=== PATIENT | male | born 1960 | race Caucasian/White ===

== ENCOUNTER 2023-04-16 09:53 | Outpatient (OUT) | payer OTHER, SELFPAY ==
--- NOTE | 2023-04-16 10:54 | PM.CN ---
Consult Note: HPI Data of Consult Patient: new to practice Consult date: 04/16/23 Requesting Physician: Sarina Ramsey MD Primary Care Provider: GRISELDA KRAUSE Consult Narrative Reason for consult: Neck, left shoulder and arm pain Narrative: 62yom who presents for evaluation. Worsening neck pain that radiates into left shoulder and upper extremity. Has had extensive workup with neurosurgery, not a surgical candidate. Has had RFA at outside clinic. Continues in provider directed home exercise program >6 weeks, with minimal benefit. Uses tylenol and muscle relaxer, with some benefit. cc:: CC: Sarina Ramsey MD Review of Systems ROS Status of ROS 10 or more systems reviewed and unremarkable except as noted in history and below Meds Home Medications and Allergies Home Medications Medication Instructions Recorded Confirmed Type acetaminophen 300 mg-codeine 30 mg 1 tab PO BID PRN pain 04/16/23 04/16/23 History tablet amlodipine 5 mg tablet (Norvasc) 5 mg PO DAILY 04/16/23 04/16/23 History aspirin 81 mg tablet,delayed 81 mg PO DAILY 04/16/23 04/16/23 History release (Adult Low Dose Aspirin) baclofen 10 mg tablet 10 mg PO DAILY PRN muscle spasm 04/16/23 04/16/23 History citalopram 20 mg tablet (Celexa) 20 mg PO DAILY 04/16/23 04/16/23 History gabapentin 300 mg capsule 300 mg PO TID 04/16/23 04/16/23 History hydroxyzine HCl 25 mg tablet 25 mg PO BID PRN sleep 04/16/23 04/16/23 History ibuprofen 600 mg tablet 600 mg PO BID 04/16/23 04/16/23 History indomethacin 25 mg capsule 25 mg PO BID unknown 04/16/23 04/16/23 History mirtazapine 15 mg tablet 15 mg PO DAILY 04/16/23 04/16/23 History montelukast 10 mg tablet 10 mg PO DAILY 04/16/23 04/16/23 History (Singulair) tizanidine 4 mg capsule 4 mg PO DAILY 04/16/23 04/16/23 History Allergies Allergy/AdvReac Type Severity Reaction Status Date / Time cephalexin [From Keflex] Allergy Unknown Verified 04/16/23 11:06 Exam Narrative Exam Narrative: Psych-alert and oriented x 3.? Attentive and appropriate, constitutionally normal, displays normal mood and affect per situation.? There are no obvious deficits in memory, reasoning, or intellect.? Skin-no obvious rashes, bruising, or erythema noted to the patient's area of pain.? Extremities-upper extremities are warm with minimal edema and palpable pulses. Cervical- tenderness to palpation noted in the cervical spine and paraspinal musculature.? Pain is elicited with flexion, extension, and lateral rotation of the cervical spine.? Range of motion is diminished due to pain. Facet loading maneuvers are negative.? Strength-unremarkable and within normal limits with the exception to the left biceps, triceps. Sensory-no notable sensory deficits in the bilateral upper extremities to touch or pinprick with the exception to decreased sensation to the left C5, 6, 7 dermatomal distribution.? Coordination remains intact.? Gait remains non-antalgic. Assessment and Plan Assessment and Plan (1) Cervical radiculopathy: (2) Cervical stenosis of spinal canal: Plan 62yom who presents for evaluation. failed physical and medical modalities, as noted. has had CT of soft tissue of neck, but no MRI available for review. given symptoms and imaging, will have him undergo cervical MRI without contrast. he is in agreement. medications reviewed, OARRS reviewed. will obtain UDS. will order t#3 bid prn, as well as gabapentin 300mg tid. follow up after imaging.
== END 2023-04-16 09:54 | disposition home or self-care (01) ==
PROVIDERS: PCP Family Medicine; Visit Provider Anesthesiology
DX: M54.12 Radiculopathy, cervical region (principal); M48.02 Spinal stenosis, cervical region
CPT/HCPCS: G0463

== ENCOUNTER 2023-05-14 07:36 | Day surgery (SDC) | payer OTHER, SELFPAY ==
[2023-05-14 08:18] VITALS: BP 158/88; PULSE 54; RESP 16; TEMP 36.6; O2SAT 97
[2023-05-14 08:56] VITALS: BP 131/78; BP 132/80; PULSE 68; PULSE 70; RESP 18; O2SAT 94
--- NOTE | 2023-05-14 08:58 | P.ON_ITS ---
Date of procedure: 05/14/23 Pre-op diagnosis: M54.12 Post-op diagnosis: same as pre-op Procedure: Procedure: Left C5-6, C6-7 transforaminal epidural steroid injection Medications: Bupivacaine 0.25% 2cc, dexamethasone 10mg The patient was seen and examined in the preoperative holding area.? Informed consent was obtained and placed on the chart.? Patient was brought to the medical procedure unit and placed in the prone position where a timeout was completed verifying the correct patient, procedure site, position, and planned special equipment using sterile aseptic technique.? Under direct fluoroscopic visualization a 25-gauge Quincke tipped spinal needle was advanced to the designated neural foramen where contrast dye was injected to show adequate spread.? The needle was inserted at level left C5-6. There was no evidence of vascular or adverse uptake.? Epidural spread was appreciated.? The above- mentioned injectate was then placed in a 1.5 mL aliquot preceded by negative aspiration.? The needle was removed. The needle was inserted and the procedure repeated at level left C6-7.? The surgery site was covered.? Patient was taken to the postprocedural recovery area and monitored for an appropriate length of time before found suitable for discharge in the accompaniment of a responsible adult. Anesthesia: Local Surgeon: Sarina Ramsey Pathology: none sent Condition: stable Disposition: no change
[2023-05-14] MEDS: BUPIVACAINE HCL 0.25% PF 25 MG/10 ML VIAL INJ (08:59)
[2023-05-14] MEDS: IOHEXOL 240 MG/ML - 10 ML VIAL 12 MG INJ (09:00)
[2023-05-14] MEDS: LIDOCAINE HCL 2% PF 100 MG/5 ML VIAL 3 ML INJ (09:00)
[2023-05-14] MEDS: DEXAMETHASONE SOD PHOS 10 MG/ML VIAL INJ (09:00)
== END 2023-05-14 09:03 | disposition home or self-care (01) ==
PROVIDERS: PCP Family Medicine; Visit Provider Anesthesiology
DX: M54.12 Radiculopathy, cervical region (principal)
CPT/HCPCS: 64479; 64480; J1100; Q9966

== ENCOUNTER 2023-05-24 11:18 | Outpatient (OUT) | payer OTHER, SELFPAY ==
--- NOTE | 2023-05-24 11:53 | PM.CN ---
Consult Note: HPI Data of Consult Patient: known to practice within the last 3 years Requesting Physician: Delia Bowser NP Primary Care Provider: GRISELDA KRAUSE Consult Narrative Reason for consult: f/u Narrative: Jovani Kong a pleasant 62 year old male presents for evaluation and management of chronic neck pain. Recently underwent Left C5-6, C6-7 transforaminal epidural steroid injection with less than 50% relief and continues to have moderate to severe pain and pain impacting functional ability. Patient continues to have pain in low neck and left shoulder , today pain 7/10 stabbing irritating burning. Patient utilizing tylenol, ibuprofen, zanaflex, baclofen, tylenol #3 PRN HS. Tylenol #3 provides pain relief for approximately a half hour per pt. Stopped gabapentin 300mg as it was too strong and caused side effects, he was taking 300mg TID. Patient would like to discuss injection options and medication therapy. cc:: CC: Delia Bowser NP Review of Systems ROS Status of ROS 10 or more systems reviewed and unremarkable except as noted in history and below Musculoskeletal Reports: neck pain PFSH PFS Medical History (Updated 05/24/23 @ 12:18 by Delia Bowser NP) Neck pain ?M54.2 - Cervicalgia (ICD-10) Low back pain ?M54.50 - Low back pain, unspecified (ICD-10) Smoker ?F17.200 - Nicotine dependence, unspecified, uncomplicated (ICD-10) Irregular heart beat ?I49.9 - Cardiac arrhythmia, unspecified (ICD-10) Hypertension ?I10 - Essential (primary) hypertension (ICD-10) Surgical History H/O neck dissection ?Z98.890 - Other specified postprocedural states (ICD-10) Meds Home Medications and Allergies Home Medications Medication Instructions Recorded Confirmed Type acetaminophen 300 mg-codeine 30 mg 1 tab PO BID PRN pain 04/16/23 05/14/23 History tablet amlodipine 5 mg tablet (Norvasc) 5 mg PO DAILY 04/16/23 05/14/23 History aspirin 81 mg tablet,delayed 81 mg PO DAILY 04/16/23 05/14/23 History release (Adult Low Dose Aspirin) baclofen 10 mg tablet 10 mg PO DAILY PRN muscle spasm 04/16/23 05/14/23 History citalopram 20 mg tablet (Celexa) 20 mg PO DAILY 04/16/23 05/14/23 History hydroxyzine HCl 25 mg tablet 25 mg PO BID PRN sleep 04/16/23 05/14/23 History ibuprofen 600 mg tablet 600 mg PO BID 04/16/23 05/14/23 History indomethacin 25 mg capsule 25 mg PO BID unknown 04/16/23 05/14/23 History mirtazapine 15 mg tablet 15 mg PO DAILY 04/16/23 05/14/23 History montelukast 10 mg tablet 10 mg PO DAILY 04/16/23 05/14/23 History (Singulair) tizanidine 4 mg capsule 4 mg PO DAILY 04/16/23 05/14/23 History Allergies Allergy/AdvReac Type Severity Reaction Status Date / Time cephalexin [From Keflex] Allergy Unknown Verified 05/14/23 08:16 Exam Narrative Exam Narrative: Psych-alert and oriented x 3.? Attentive and appropriate, constitutionally normal, displays normal mood and affect per situation.? There are no obvious deficits in memory, reasoning, or intellect.? Skin-no obvious rashes, bruising, or erythema noted to the patient's area of pain.? Extremities-upper extremities are warm with minimal edema and palpable pulses. Cervical- tenderness to palpation noted in the cervical spine and paraspinal musculature.? Pain is elicited with flexion, extension, and lateral rotation of the cervical spine.? Range of motion is diminished due to pain. Facet loading maneuvers are negative.? Strength-unremarkable and within normal limits with the exception to the left biceps, triceps. Sensory-no notable sensory deficits in the bilateral upper extremities to touch or pinprick with the exception to decreased sensation to the left C5, 6, 7 dermatomal distribution.? Coordination remains intact.? Gait remains non-antalgic. Constitutional Documenting provider has reviewed patient's vital signs: yes Common normals: no apparent distress, oriented x3, healthy appearing, alert and well nourished General appearance: cooperative [facility] Common normals: normocephalic, hearing grossly normal bilaterally and moist oral mucous membranes Head and scalp: normocephalic Eye Common normals: PERRL Pupil: PERRL Neck & C-Spine Common normals: full ROM General: normal visual inspection Chest Common normals: inspection of chest normal Respiratory Common normals: normal respiratory effort, no retractions and no use of accessory muscles Neuro Common normals: oriented x3, CN's II-XII intact bilaterally, moves all extremities, no focal motor deficits, no sensory deficits noted and deep tendon reflexes 2+ bilaterally Sensorium/orientation: alert Motor exam: strength 5/5 throughout and no movement abnormalities noted Psych Common normals: mental status grossly normal, thought process normal, cooperative, affect normal, speech normal and activity/motor behavior normal Speech: normal speech Thought process: normal thought process Results Additional Findings Additional findings: I have checked an OARRS report on this patient today and there are no aberrancies noted in the prescribing history.?? A drug screen was completed and reviewed within the last year, and if there has not been a drug screen completed we ordered one today to monitor higher risk, state monitored pain medication use. As part of providing excellent, safe, comprehensive care, the following was completed at our patient's visit: 1. A medication reconciliation and review to ensure accurate knowledge of current/active medications, including asking our patients to inform us about any [id number] medications or herbal remedies/nutritional supplements/alternative remedies. 2. A review to specifically ensure our patients have had annual screening for: elevated body mass index (BMI), tobacco use, screening for depression, and screening for unhealthy alcohol use. When screening is concerning, patients are provided with education and the specific recommendation to discuss the concerning health issue and treatment options with their primary care provider. Assessment and Plan Assessment and Plan (1) Cervical radiculopathy: Assessment and Plan: The patient has had over 3 months of moderate to severe neck pain with functional impairment and inadequate response to conservative care including NSAIDS (unless there are contraindication such as concurrent blood thinners), multiple oral or topical pain medications, and home exercise program/physical therapy.? Patient has completed >6 weeks of guided home exercise program and/or formal physical therapy program without relief of their symptoms.? I have reviewed the imaging of the cervical spine and no red flags were identified.? The Oswestry Disability Index was completed, and the patient scored a 26%.? The patient noted the following:?? moderate to severe pain, pain impacting sleep, pain with ADLs, pain with social life and travel We discussed the risks and benefits of the procedure with the patient, and we are NOT planning on using sedation as outlined in the guidelines from Medicare unless there is a documented reason that sedation would be strongly recommended.?? ?The procedure will be completed with fluoroscopic guidance.? (2) Cervical stenosis of spinal canal: (3) Myofascial pain: Plan repeat L C5-6 C-7 TFESI with steroid rotation under fluoroscopy as patient had less than 50% pain relief and functional improvement with initial injection stop tylneol #3 start hydrocodone-acetaminophen 5-325mg daily PRN moderate to severe pain, 1 week supply start gabapentin 100mg QD-BID as tolerated, will restart 300mg daily next month continue zanaflex 4mg HS PRN stop baclofen f/u 2 weeks after [facility]GI
== END 2023-05-24 11:19 | disposition home or self-care (01) ==
LOC: PM 11:24
PROVIDERS: PCP Family Medicine; Visit Provider Nurse Practitioner
DX: M54.12 Radiculopathy, cervical region (principal); M48.02 Spinal stenosis, cervical region; M79.18 Myalgia, other site
CPT/HCPCS: G0463

== ENCOUNTER 2023-08-06 06:58 | Day surgery (SDC) | payer OTHER, SELFPAY ==
--- OUTSIDE RECORDS SUMMARY | 2023-08-06 07:01 | XMS_ITS | CCD ---
Author Name Unknown Address [address] [place] [address] Organization [facility] Care Team Providers Care Special Effects Makeup Artist Name Role Phone Griselda Krause Primary Care Provider Griselda Krause Attending Provider Griselda Krause Unavailable Unavailable Unavailable Griselda Krause Unavailable Sheng Schneider Unavailable Griselda Krause Primary Care Provider Griselda Krause Unavailable DO Griselda Krause Primary Care Provider MD Elvi Cadena Attending Provider BAILEY Gaytan Emergency Provider MD Loi Wong Jr Emergency Provider Unavailable Unavailable DO Griselda Krause Primary Care Provider MD Elvi Cadena Attending Provider BAILEY Gaytan Emergency Provider MD Loi Wong Jr Emergency Provider BAILEY Thomason Attending Provider BAILEY Thomason Attending Provider DO Griselda Krause Primary Care Provider MD Elvi Cadena Attending Provider Trish Carney Unavailable Griselda Krause Primary Care Provider KunGriselda meneses Unavailable Tammi NORRIS, Elvi Ruiz Unavailable [phone] DEMOND CAT Attending Unavailable DEMOND CAT Admitting Unavailable KUNS, GRISELDA WRIGHT Primary Care Unavailable Kuns, DO Camara Primary Care Provider Kungideon, DO Camara Attending Provider [phone] GRISELDA KRAUSE Primary Care Unavailable MEMO COLE Referring Unavailable ARSENIO JACKSON Attending Unavaila ble GRISELDA KRAUSE Referring Unavailable KUNS, GRISELDA WRIGHT Primary Care Unavailable KELTON PEERZ Referring Unavailable NELIDA, GRISELDA WRIGHT Primary Care Unavailable ELVI CADENA Referring Unavailable KELTON PEREZ Attending Unavailable KUNS, GRISELDA WRIGHT Primary Care Unavailable MD Lima Joseph Attending Provider Dr. BRET HDEZ Attending Unavailable PCP, OTHER Primary Care Unavailable PCP, Other Primary Care Physician [phone] Dr. Griselda Krause Primary Care Unavailabl e Nelida, DO Camara Primary Care Provider [phone] BAILEY Gaytan Emergency Provider [phone] Tanja, DO Rohit Mullins Emergency Provider Nelida, DO Camara Attending Provider [phone] Lilliam Cason Unavailable Nelida, DO Camara Primary Care Provider BAILEY Gaytan Emergency Provider [phone] DO Rohit Agrawal Emergency Provider Nelida, DO Camara Attending Provider [phone] MD Lilliam Cason Attending Provider Ruddy Harvey Unavailable [phone] BAILEY Thomason Attending Provider MD Ruddy Harvey Attending Provider Roxy NORRIS, Sarina Badillo Attending Unavailable Roxy NORRIS, Sarina Badillo Attending Unavailable Kuns, DO Griselda Primary Care Provider [phone] Andreas DO, Griselda R Primary Care Provider [phone] Lilliam Cason Admitting Unavailable Lilliam Cason Attending Unavailable Kuns, Griselda Primary Care Unavailable Kuns, Griselda Primary Care Unavailable Nikole Thomason Admitting Unavailab le DarlynianNikole santacruz Attending Unavailab le Kuns, Griselda Primary Care Unavailable Ruddy Harvey Admitting Unavailabl e Ruddy Harvey Attending Unavailabl e Daniel Gaytan Attending Unavailable Kuns, Griselda Primary Care Unavailable Daniel Gaytan Admitting Unavailable TuRohit saavedra Admitting Unavailable JaxsonpaRohit Attending Unavailable Kuns, Griselda Primary Care Unavailable Kuns, Griselda Primary Care Unavailable Ruddy Harvey Admitting Unavailabl e Ruddy Harvey Attending Unavailabl e AndreasKatytt Attending Unavailable Kuns, Griselda Admitting Unavailable Kuns, Griselda Primary Care Unavailable Lima Joseph Admitting Unavailable Lima Joseph Attending Unavailable Kuns, Griselda Primary Care Unavailable Kuns, Griselda Primary Care Unavailable Kuns, Griselda Attending Unavailable Kuns, Griselda Admitting Unavailable NIKOLE THOMASON Attending Unavailab le NIKOLE THOMASON Attending Unavailab le NIKOLE THOMASON Referring Unavailab le DARLYNIANNIKOLE Santacruz Attending Unavailab le DARLYNIANNIKOLE Santacruz Attending Unavailab le Kuns, DO Griselda Primary Care Provider [phone] ADDIS JUAREZ Attending Unavailable ADDIS JUAREZ Referring Unavailable KUNS, GRISELDA R Primary Care Unavailable ADDIS JUAREZ Attending Unavailable ADDIS JUAREZ Referring Unavailable KUNS, GRISELDA R Primary Care Unavailable Unavailable Unavailable Unavailable Allergies Allergy Classification Reported Allergen(s) Allergy Type Date of Onset Reaction(s) Facility Cephalosporins (antibiotic) (1 source) Cephalexin Drug Allergy 04-29-2018 Hives [facility] [place] (20 sources) Cephalexin; Translations: [CEPHALEXIN] Drug Allergy 04-29-2018 [facility] (20 sources) Cephalexin; Translations: [Keflex] Drug Allergy rash Vast Other (1 source) Cephalexin; Translations: [Keflex] Drug Allergy Hives [facility] NEGATED: Highlighted row has been ruled out! (1 source) natural latex rubber; Translations: [LATEX, NATURAL RUBBER] Drug allergy (disorder) [facility] NEGATED: Highlighted row has been ruled out! (1 source) No IV Contrast Allergy.; Translations: [IV Dye, Iodine Containing] Drug allergy (disorder) S E[facility] Medications Current Medications Medication Drug Class(es) Dates Sig (Normalized) Sig (Original) amLODIPine 5 mg oral tablet (19 sources) Dihydropyridine Calcium Channel Clara Start: 03-15-2023 End: 08-02-2023 take 1 tablet by mouth once daily Amlodipine Active 5 MG PO Daily August 02, 2023 12:00am FreeTextSi tablet Orally Once a day; Note: Source Status: Continue; Provider: Nelida Driver aspirin 81 mg delayed release oral tablet (20 sources) Platelet Aggregation Inhibitor, Nonsteroidal Anti-inflammatory Drug Start: 08-02-2023 take 81 mg by mouth once daily Aspirin Active 81 MG PO Daily August 02, 2023 12:00am Start: 07-17-2022 End: 08-02-2023 take 81 mg by mouth once daily Aspirin Discontinued 81 MG PO Daily July 17, 2022 12:00am August 02, 2023 12:45pm ASPIRIN 81 PO As pir-81 0 Active take 1 tablet by myles th every twenty-four hours Aspirin Adult Low Dose 81 MG 1 tablet Orally Once a day Active Aspirin 81 MG TA BS Quantity: 0 Refills: 0 Ordered: 03-Nov-2021 DO Active take 1 tablet by myles th once daily Aspirin 81 MG 1 tablet Orally Once a day Active atogepant 60 MG Oral Tablet [Qulipta] (5 sources) take 1 tablet by mouth every twenty-four hours Qulipta 60 MG 1 tablet Orally Once a day Active azithromycin 250 mg oral tablet (18 sources) Macrolide Antimicrobial Start: 01-15-20 24 Zithromax Z-Slim 250 MG as directed Orally as directed 1 pack Jun, Active Start: 12-05-2022 Zithromax Z-Pa k 250 MG as directed Orally Nov, Active Start: 08-01-2022 Zithromax Z-Pa k 250 MG as directed Orally Jul, Active Start: 03-16-2022 Zithromax Z-Pa k 250 MG as directed Orally Feb, Active Start: 11-23-2021 Zithromax Z-Pa k 250 MG 2 tablet on the first day, then 1 tablet daily for 4 days Orally Once a day for 5 day(s) Nov, Not-Taking Start: 06-30-2021 Zithromax Z-Pa k 250 MG 2 tablet on the first day, then 1 tablet daily for 4 days Orally Once a day Jun, Active baclofen 10 mg oral tablet (2 sources) gamma-Aminobutyric Acid-ergic Agonist Start: 03-30-2023 take 1 tablet by mouth three times daily as needed baclofen (Lioresal) 10 MG tablet Take 1 tablet 3 times a day by oral route as needed for 15 days. 0 03/30/2023 Active onabotulinumtoxina 200 unt injection (1 source) Acetylcholine Release Inhibitor Start: 07-20-2023 Botox 200u vial IJ Soln 200 units injection Indications: Spasmodic Torticollis Inject 400 units into neck muscles every 90 days 2 each 3 07/20/2023 Active brexpiprazole 1 mg oral tablet (5 sources) Atypical Antipsychotic Start: 08-02-2023 take 0.5 mg by mouth once daily Brexpiprazole Active 0.5 MG PO Daily August 02, 2023 1:09pm Start: 08-02-2023 End: 08-02-2023 take 1 tablet by mouth once daily Brexpiprazole Discontinued 1 MG PO Daily August 02, 2023 12:00am August 02, 2023 1:10pm FreeTextSi tablet Orally Once a day; Note: Source Status: Continuesamples provided; Provider: Nelida Driver Start: 05-31-2023 take 1 tablet by myles th every twenty-four hours Rexulti 1 MG 1 tablet Orally Once a day samples provided 14 Dec, 2023 Active Start: 05-31-2023 take 1 tablet by myles th every twenty-four hours Rexulti 0.5 MG 1 tablet Orally Once a day for 7 days samples provided May, Active citalopram 20 mg oral tablet (20 sources) Serotonin Reuptake Inhibitor Start: 12-26-2021 End: 08-02-2023 take 1 tablet by mouth once daily Citalopram Active 20 MG PO Daily August 02, 2023 12:00am FreeTextSi tablet Orally Once a day; Note: Source Status: Continue; Provider: Nelida Driver Start: 10-22-2018 take 1 tablet by myles th once daily citalopram (CELEXA) 40 mg tablet Take 40 mg by mouth once daily. 0 10/22/2018 Active Start: 12-10-2017 End: 04-29-2018 take 20 mg by mouth once daily Citalopram Discontinued 20 MG PO Daily December 09, 2017 11:00pm April 29, 2018 2:12pm Comment on above: Take 40 mg by mouth once daily. clopidogrel 75 mg oral tablet (11 sources) P2Y12 Platelet Inhibitor Start: 05-07-20 End: 08-02-19 take 1 tablet by mouth once daily Clopidogrel (Plavix) 75 mg tablet Active 75 MG PO Daily August 02, 2023 12:00am FreeTextSi tablet Orally Once a day; Note: Source Status: Taking; Provider: Nelida Camara ( ) dexamethasone 2 mg oral tablet (2 sources) Corticosteroid Start: 06-14-20 dexAMETHasone (Decadron) 2 MG tablet Indications: Cervical radiculopathy , Cervical stenosis of spinal canal , Occipital neuralgia of left side 2mg 3 pills po X3 days,2 pills po daily X3 days , then 1 pill po daily X3 days then stop 9 days 18 pills 18 tablet 0 06/14/2023 Active 1 ml galcanezumab-gnlm 120 mg/ml auto-injector (7 sources) Emgality 120 MG/ ML as directed Subcutaneous Active hydrOXYzine hydrochloride 25 mg oral tablet (20 sources) Antihistamine Start: 08-02-19 take 1-2 tablets by mouth at bedtime as needed Hydroxyzine Hcl Active MG PO August 02, 2023 12:00am FreeTextSi-2 tablets Orally HS as needed; Note: Source Status: Taking; Provider: Nelida Driver Start: 05-26-2022 End: 08-02-2023 take 25 mg by mouth at bedtime Hydroxyzine Hcl Discont inued 25 MG PO Bedtime July 17, 2022 12:00am August 02, 2023 12:48pm Comment on above: take 1 to 2 tablets by mouth at bedtime if needed ibuprofen 800 mg oral tablet (20 sources) Nonsteroidal Anti-inflammatory Drug Start: take 1 tablet by mouth three times daily at mealtime as needed Ibuprofen Active 800 MG PO Three times daily August 02, 2023 12:00am FreeTextSi tablet with food or milk as needed Orally Three times a day; Note: Source Status: TakingPRN; Provider: Nelida Camara ( ) Start: 04-17-2022 End: 07-17-2022 take 600 mg by mouth every eight hours Ibuprofen Discontinued 600 MG PO Q8H April 16, 2022 11:00pm July 17, 2022 8:01am take 1 tablet by myles th three times daily at mealtime as needed Ibuprofen 800 MG 1 tablet with food or milk as needed Orally Three times a day PRN Active iv contrast (will be provided with radiology test) (12 sources) Start: 09-20-2022 End: 09-21-2022 inject 1 dose intravenously once iv contrast (will be provided with radiology test) MRI Brain Inject, intravenously, once for 1 dose.No IV access, insert saline lock prior to beginning of sedation, infusion, injection of imaging exam.Discontinue saline lock post exam. If Pt. has a central line or IVAD, may access for administration according to line specific nursing protocol.Once exam is complete flush line and de-access according to line specific nursing protocol in the MR contrast administration guidelines link 1 Each 0 09/20/2022 09/21/2022 Active Start: 10-30-2021 End: 10-30-2021 inject 1 dose intravenously once, then inject 1 dose intravenously once iv contrast (will be provided with radiology test) Inject 1 Each intravenously one time only for [address] Neck W IVCON No IV access, insert saline lock prior to the sedation, infusion, injection for imaging exam. Discontinue saline lock post exam. If Pt. has a central line or IVAD, may access for administration according to line specific nursing protocol. Once exam is complete flush line and de-access according to line specific nursing protocol in the CT contrast administration guidelines link. 1 Each 0 10/30/2021 10/30/2021 Active Start: 10-30-2021 End: 10-31-2021 iv contrast (will be provide d with radiology test) CT Chest W -Inject, intravenously, once for 1 dose.No IV access, insert saline lock prior to the beginning of sedation, infusion, injection of imaging exam. Discontinue saline lock post exam. If Pt. has a central line or IVAD, may access for administration according to line specific nursing protocol. Once exam is complete flush line and de-access according to line specific nursing protocol in the CT contrast administration guidelines link. 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 Discontinue saline lock post exam. If Pt. has a central line or IVAD, may access for administration according to line specific nursing protocol. Once exam is complete flush line and de-access according to line specific nursing protocol in the CT contrast administration guidelines link. 1 Each 0 03/15/2020 Active Comment on above: CT Chest W -Inject, intravenously, once for 1 dose.No IV access, insert saline lock prior to the beginning of sedation, infusion, injection of imaging exam. Discontinue saline lock post exam. If Pt. has a central line or IVAD, may access for administration according to line specific nursing protocol. Once exam is complete flush line and de-access according to line specific nursing protocol in the CT contrast administration guidelines link. Inject 1 Each intrav enously one time only for [address] Neck W IVCON No IV access, insert saline lock prior to the sedation, infusion, injection for imaging exam. Discontinue saline lock post exam. If Pt. has a central line or IVAD, may access for administration according to line specific nursing protocol. Once exam is complete flush line and de-access according to line specific nursing protocol in the CT contrast administration guidelines link. MRI Brain Inject, in travenously, once for 1 dose.No IV access, insert saline lock prior to beginning of sedation, infusion, injection of imaging exam.Discontinue saline lock post exam. If Pt. has a central line or IVAD, may access for administration according to line specific nursing protocol.Once exam is complete flush line and de-access according to line specific nursing protocol in the MR contrast administration guidelines link mirtazapine 15 mg oral tablet (20 sources) Start: 08-02-19 24 take 0.5 tablet by mouth once daily at bedtime Mirtazapine Active MG PO August 02, 2023 12:00am FreeTextSi/2 tablet at bedtime Orally Once a day; Note: Source Status: Taking; Provider: Nelida Camara ( ) Start: 09-01-2022 take 0.5 tablet by m outh at bedtime mirtazapine (Remeron) 15 MG tablet mirtazapine 15 mg tablet take 1/2 tablet by mouth at bedtime 0 09/01/2022 Active Start: 09-01-2022 mirtazapine (R EMERON) 15 mg tablet Take by mouth daily at bedtime. 0 09/01/2022 Active Start: 07-17-2022 End: 08-02-2023 take 7.5 mg by mouth at bedtime Mirtazapine Discontinu ed 7.5 MG PO Bedtime July 17, 2022 12:00am August 02, 2023 12:49pm Comment on above: Take by mouth daily at bedtime. Multiple Vitamin (MULTIVITAMIN ADULT PO) (2 sources) take 1 capsule by mouth in the morning Multiple Vitamin (MULTIVITAMIN ADULT PO) Take 1 capsule by mouth in the morning. 0 Active Multiple Vitamin - (20 sources) take 1 tablet by mouth once daily Multiple Vitamin - 1 tablet Orally Once a day Active Multivitamin (Multiple Vitamins) tablet (1 source) Start: 4 take 1 tablet by mouth once daily Multivitamin (Multiple Vitamins) tablet Active 1 TAB PO Daily August 02, 2023 12:00am pravastatin sodium 40 mg oral tablet (3 sources) HMG-CoA Reductase Inhibitor Start: 3 take 1 tablet by mouth every twenty-four hours Pravastatin Sodium 40 MG 1 tablet Orally Once a day for 90 days Apr, Active tiZANidine 4 mg oral tablet (20 sources) Central alpha-2 Adrenergic Agonist Start: take 1 tablet by mouth once daily at bedtime Tizanidine (Zanaflex) 4 mg tablet Active 4 MG PO Daily at bedtime August 02, 2023 12:00am FreeTextSi tablet as needed Orally at bedtime; Note: Source Status: Taking; Provider: Satish Rogers Start: 01-30-2023 take 1 capsule by mo [facility] twice daily tiZANidine (Zanaflex) 4 MG capsule Indications: Cervical stenosis of spinal canal tizanidine 4 mg capsule take 1 capsule by mouth twice a day if needed for MUSCLE SPASTICITY 60 capsule 11 01/30/2023 Active Start: 04-17-2022 End: 07-17-2022 take 4 mg by mouth twice daily Tizanidine Discontinued 4 MG PO Twice daily April 16, 2022 11:00pm July 17, 2022 8:02am Start: 04-06-2022 End: 08-02-2023 take 8 mg by mouth at bedtime Tizanidine Discontinued 8 MG PO Bedtime April 05, 2022 11:00pm August 02, 2023 12:50pm Start: 04-06-2022 take 1 tablet by [facility] every twenty-four hours as needed tiZANidine (ZANAFLEX) 4 mg tablet Take 4 mg by mouth at bedtime as needed. 0 08/29/2022 Active Start: 11-01-2021 tiZANidine HCl - 4 MG Oral Tablet Quantity: 30 Refills: 0 Ordered: 01-Nov-2021 DO Start : 01-Nov-2021 Active Comment on above: Take 4 mg by mouth a t bedtime as needed. vortioxetine 5 mg oral tablet (1 source) Start: 09-12-2021 take 1 tablet by mouth every twenty-four hours Trintellix 5 MG 1 tablet Orally Once a day for 30 day(s) Samples Aug, Active Completed/Discontinued Medications Medication Drug Class(es) Dates Sig (Normalized) Sig (Original) acetaminophen 325 mg / butalbital 50 mg / caffeine 40 mg oral tablet (3 sources) Barbiturate, Central Nervous System Stimulant, Methylxanthine Start: 08-31-2022 take 1 tablet by mouth every four to six hours for headache acetaminophen 325 mg-caffeine 40 mg-butalbital 50 mg (FIORICET) per tablet take 1 tablet by mouth every 4 to 6 hours if needed for headache or migraines for 30 DAYS 0 08/31/2022 Active Comment on above: take 1 tablet by myles th every 4 to 6 hours if needed for headache or migraines for 30 DAYS acetaminophen 300 mg / codeine phosphate 30 mg oral tablet (3 sources) Opioid Agonist Start: 05-07-2023 End: 08-02-2023 take 1 tablet by mouth twice daily Acetaminophen-Code ine Discontinued 1 TAB PO Twice daily May 07, 2023 12:00am August 02, 2023 12:44pm acetaminophen 325 mg / HYDROcodone bitartrate 5 mg oral tablet (17 sources) Opioid Agonist Start: 12-10-2017 End: 04-29-2018 take 1 tablet by mouth every four hours Hydrocodone-Acetam inophen ([place]) 5-325 mg tablet Discontinued 1 TAB PO Q4H December 10, 2017 April 29, 2018 2:12pm acetaminophen 325 mg / oxyCODONE hydrochloride 5 mg oral tablet (18 sources) Opioid Agonist Start: 04-17-2022 End: 07-17-2022 take 1 tablet by mouth every six hours Oxycodone-Acetamin ophen (Percocet) 5-325 mg tablet Discontinued 1 - 2 TAB PO Every 6 hours 05 10April 17, 2022 July 17, 2022 8:01am acetaZOLAMIDE 250 mg oral tablet (11 sources) Carbonic Anhydrase Inhibitor Start: 08-31-2022 take 1 tablet by mouth once daily in the morning, then take 2 tablets by mouth at bedtime acetaZOLAMIDE (DIAMOX) 250 mg tablet take 1 tablet by mouth every morning and AFTERNOON and 2 at bedtime as directed 0 08/31/2022 Active take 1 tablet by myles th every twelve hours acetaZOLAMIDE 125 MG 1 tablet Orally Twi ce a day Active Comment on above: take 1 tablet by myles th every morning and AFTERNOON and 2 at bedtime as directed [id number] actuat albuterol 0.09 mg/actuat metered dose inhaler (4 sources) beta2-Adrenergic Agonist Start: End: 4 take 1 puff(s) by inhalation every four hours as needed Albuterol Sulfate Discontinued 1 PUFF INHALATION Every 4 hours August 02, 2023 12:00am August 02, 2023 12:45pm FreeTextSi puff as needed Inhalation every 4 hrs; Note: Source Status: Start; Refills: 1; Provider: Nelida Driver Start: 07-02-2023 take 2 puff(s) by in halation every four hours albuterol HFA 90 mcg/act inhaler Inhale 2 puffs every 4 (four) hours if needed 0 07/02/2023 Active Start: 07-02-2023 take 1 puff(s) by in halation every four hours as needed Albuterol Sulfate HFA 108 (90 Base) MCG/ACT 1 puff as needed Inhalation every 4 hrs Jun, Active ALPRAZolam 0.25 mg oral tablet (20 sources) Benzodiazepine Start: 09-12-2021 take 1 tablet by mouth once daily as needed ALPRAZolam (XANAX) 0.25 mg tablet Take 0.25 mg by mouth once daily as needed. 0 09/12/2021 Active take 1 tablet by myles th every twelve hours ALPRAZolam 0.25 MG 1 tablet Orally Twice a day prn Active Comment on above: Take 0.25 mg by mout h once daily as needed. amoxicillin 875 mg / clavulanate 125 mg oral tablet (8 sources) Penicillin-class Antibacterial Start: 02-27-20 End: 05-07-20 take 1 tablet by mouth twice daily Amoxicillin-Pot Clavulanate Discontinued 1 TAB PO Twice daily February 25, 2023 11:00pm May 07, 2023 8:23am atorvastatin 10 mg oral tablet (20 sources) HMG-CoA Reductase Inhibitor Start: 09-29-19 take 1 tablet by mouth once daily atorvastatin (LIPITOR) 10 mg tablet Take 10 mg by mouth once daily. 0 09/28/2021 Active Start: 09-28-2021 Atorvastatin C alcium 10 MG Oral Tablet Quantity: 90 Refills: 0 Ordered: 28-Sep-2021 DO Start : 28-Sep-2021 Active Comment on above: Take 10 mg by mouth once daily. betamethasone 0.5 mg/ml / clotrimazole 10 mg/ml topical cream (20 sources) Azole Antifungal, Corticosteroid Start: End: Clotrimazole-Betameth asone Discontinued 1 APPLIC TOPICAL Twice daily August 02, 2023 12:00am August 02, 2023 12:47pm FreeTextSi application Externally Twice a day; Note: Source Status: Not-Taking\PRN; Refills: 1; Qty: 45 grams; Provider: Nelida Driver 12 hr buPROPion hydrochloride 150 mg extended release oral tablet (9 sources) Aminoketone Start: take 1 tablet by mouth twice daily buPROPion SR (WELLBUTRIN SR) 150 mg 12 hr tablet Take 1 tablet by mouth twice daily. 60 tablet 2 02/28/2019 Active Comment on above: Take 1 tablet by myles twice daily. cyclobenzaprine hydrochloride 10 mg oral tablet (7 sources) Muscle Relaxant Start: End: take 10 mg by mouth three times daily Cyclobenzaprine Discontinued 10 MG PO Three times daily March 20, 2023 11:00pm May 07, 2023 8:22am doxycycline monohydrate 100 mg oral capsule (9 sources) Tetracycline-class Drug Start: take 1 capsule by mouth every twelve hours doxycycline monohydrate (MONODOX) 100 mg capsule TAKE 1 CAPSULE BY MOUTH EVERY 12 HOURS FOR 10 DAYS 0 11/05/2018 Active Comment on above: TAKE 1 CAPSULE BY MO [facility] EVERY 12 HOURS FOR 10 DAYS DULoxetine 20 mg delayed release oral capsule (4 sources) Serotonin and Norepinephrine Reuptake Inhibitor take 1 capsule by mouth every twelve hours Cymbalta 20 MG 1 capsule Orally Twice a day Not-Taking ezetimibe 10 mg oral tablet (8 sources) Dietary Cholesterol Absorption Inhibitor Start: End: take 1 tablet by mouth every week Ezetimibe Discontinued MG PO August 02, 2023 12:00am August 02, 2023 12:47pm FreeTextSi tablet Orally 2 days per week; Note: Source Status: Not-Taking\PRN; Provider: Kamla Ruiz Start: 05-15-2023 take 1 tablet by myles th in the morning ezetimibe (Zetia) 10 MG tablet Take 10 mg by mouth in the morning. 0 06/08/2023 Active Start: 05-15-2023 take 1 tablet by myles th every twenty-four hours Ezetimibe 10 MG 1 tablet Orally Once a day for 90 days Apr, Active gabapentin 100 mg oral capsule (20 sources) Anti-epileptic Agent Start: 08-02-2023 End: 08-02-2023 take 1 capsule by mouth once daily Gabapentin Discontinued 100 MG PO Daily August 02, 2023 12:00am August 02, 2023 12:47pm FreeTextSi capsule Orally Once a day; Note: Source Status: Not-Taking\PRN; Provider: Nelida Camara ( ) Start: 04-16-2023 End: 08-02-2023 take 300 mg by mouth three times daily Gabapentin Discontinued 300 MG PO Three times daily May 07, 2023 12:00am August 02, 2023 12:47pm Start: 02-27-2019 take 1 capsule by [facility] three times daily gabapentin (NEURONTIN) 300 mg capsule Take 1 capsule by mouth three times daily for 30 days. 90 capsule 0 02/27/2019 Active take 1 capsule by fl ut every twenty-four hours Gabapentin 100 MG 1 capsule Orally Once a day Not-Taking/PRN Comment on above: Take 1 capsule by mo ut three times daily for 30 days. indomethacin 75 mg extended release oral capsule (20 sources) Nonsteroidal Anti-inflammatory Drug Start: 08-02-19 End: 08-02-19 take 1 capsule by mouth once daily at mealtime Indomethacin Discontinued 75 MG PO Daily August 02, 2023 12:00am August 02, 2023 12:48pm FreeTextSi capsule with food Orally Once a day; Note: Source Status: Not-Taking\PRNprn; Provider: Nelida Camara ( ) Start: 07-17-2022 End: 08-02-2023 take 25 mg by mouth once daily Indomethacin Discontinu ed 25 MG PO Daily July 17, 2022 12:00am August 02, 2023 12:48pm take 1 capsule by fl ut once daily at mealtime indomethacin SR (Indocin SR) 75 MG ER capsule indomethacin ER 75 mg capsule,extended release take 1 capsule by mouth once daily with food 0 Active take 1 capsule by [facility] every twenty-four hours Indomethacin ER 75 MG 1 capsule with food Orally Once a day prn Active Ketorolac (20 sources) Nonsteroidal Anti-inflammatory Drug, Cyclooxygenase Inhibitor Start: 01-27-2015 Toradol per 15 mg Jan, 2 mL meclizine hydrochloride 25 mg oral tablet (17 sources) Antiemetic Start: 04-29-2018 End: 04-06-2022 take 25 mg by mouth three times daily Meclizine Discontinued 25 MG PO Three times daily April 29, 2018 12:00am April 06, 2022 3:26pm Methylprednisolone (16 sources) Corticosteroid Start: 08-02-2023 End: 08-02-2023 Methylprednisolone Discontinued MG PO As Directed August 02, 2023 12:00am August 02, 2023 12:48pm FreeTextSig: as directed Orally as directed; Note: Source Status: Start1 pack; Refills: 0; Provider: Nelida Driver Start: 07-02-2023 methylPREDNISo lone 4 MG as directed Orally as directed 1 pack Jun, Active Start: 03-16-2022 Medrol 4 MG as directed Orally Feb, Active Start: 11-23-2021 methylPREDNISo lone 4 MG as directed Orally Nov, Not-Taking Start: 06-30-2021 methylPREDNISo lone 4 MG as directed Orally as directed Jun, Active montelukast 10 mg oral tablet (20 sources) Leukotriene Receptor Antagonist Start: 07-17-2022 End: 08-02-2023 take 1 tablet by mouth once daily Montelukast (Singulair) 10 mg tablet Discontinued 10 MG PO Daily August 02, 2023 12:00am August 02, 2023 1:10pm FreeTextSi tablet Orally Once a day; Note: Source Status: Taking; Provider: Nelida Camara ( ) Comment on above: Take 10 mg by mouth daily at bedtime. Multivitamin capsule (9 sources) take 1 capsule by mouth once daily Multivitamin capsule Take 1 capsule by mouth once daily. 0 Active Comment on above: Take 1 capsule by [facility] once daily. naproxen 500 mg oral tablet (17 sources) Nonsteroidal Anti-inflammatory Drug Start: 12-10-2017 End: 04-29-2018 take 500 mg by mouth twice daily at mealtime Naproxen Discontinued 500 MG PO Twice daily December 09, 2017 11:00pm April 29, 2018 2:12pm administer with food or milk olmesartan medoxomil 20 mg oral tablet (3 sources) Angiotensin 2 Receptor Clara Start: 05-07-2023 End: 08-02-2023 Olmesartan Discontinued MG TABLET May 07, 2023 12:00am August 02, 2023 12:50pm predniSONE 10 mg oral tablet (20 sources) Start: 03-21-2023 End: 05-07-2023 take 60 mg by mouth once daily at mealtime Prednisone Discontinued 60 MG PO Daily March 20, 2023 11:00pm May 07, 2023 8:24am administer with food or milk Start: 04-06-2022 End: 07-17-2022 take 40 mg by mouth once daily at mealtime Prednisone Discontinued 40 MG PO Daily April 05, 2022 11:00pm July 17, 2022 8:01am administer with food or milk promethazine hydrochloride 25 mg oral tablet (20 sources) Phenothiazine Start: 04-29-2018 End: 04-06-2022 take 25 mg by mouth every six hours Promethazine Discontinued 25 MG PO Q6H September 07, 2021 11:00pm April 06, 2022 3:26pm take 1 tablet by myels th every twelve hours Promethazine HCl 25 MG 1 tablet as neede d Orally every 12 hrs Active rimegepant 75 mg disintegrating oral tablet (18 sources) Start: 04-06-2022 End: 07-17-2022 Rimegepant (Nurtec Odt) 75 m g tablet,disintegrating Discontinued 75 MG PO Q48H April 05, 2022 11:00pm July 17, 2022 8:02am take 1 tablet by mouth once liyah y Nurtec 75 MG 1 tablet on the tongue and allow to dissolve Orally Ever Other Day Active rosuvastatin calcium 5 mg oral tablet (5 sources) HMG-CoA Reductase Inhibitor Start: 08-02-2023 End: 08-02-2023 take 1 tablet by mouth every week Rosuvastatin Discontinued 5 MG PO August 02, 2023 12:00am August 02, 2023 1:10pm FreeTextSi tablet Orally 2 days per week; Note: Source Status: Not-Taking\PRN; Refills: 1; Provider: Nelida Driver Start: 05-31-2023 take 1 tablet by myles th in the morning rosuvastatin (Crestor) 5 MG tablet Take 5 mg by mouth in the morning. 0 06/27/2023 Active SUMAtriptan 100 mg oral tablet (8 sources) Serotonin-1b and Serotonin-1d Receptor Agonist take 1 tablet by mouth every two hours as needed, then take 1 tablet by mouth twice daily as needed Imitrex 100 MG 1 tablet at least 2 hours between doses as needed Orally Twice a day Not-Taking topiramate 100 mg oral tablet (1 source) take 1 tablet by mouth every twenty-four hours Topamax 100 MG 1 tablet Orally Once a day Not-Taking Toradol 30 mg/ml (20 sources) Start: Toradol 30 mg/ml Jun, 60 mg Start: 09-12-2021 Toradol 30 mg/ ml Aug, 60 mg Triamcinolone (20 sources) Corticosteroid Start: 01-24-2016 KENALOG - 10 mg Jan, 1.5 cc 24 hr divalproex sodium 250 mg extended release oral tablet (20 sources) Mood Stabilizer, Anti-epileptic Agent Start: 09-28-2021 take 1 tablet by mouth once daily divalproex ER (DEPAKOTE ER) 250 mg 24 hr tablet Take 250 mg by mouth once daily. 0 09/28/2021 Active Start: 09-28-2021 take 1 tablet by myles th every twenty-four hours Divalproex Sodium ER 250 MG Oral Tablet Extended Release 24 Hour Quantity: 90 Refills: 0 Ordered: 28-Sep-2021 DO Start : 28-Sep-2021 Active Comment on above: Take 250 mg by mouth once daily. zonisamide 25 mg oral capsule (7 sources) Anti-epileptic Agent take 1 capsule by mouth every twelve hours Zonegran 25 MG 1 capsule Orally BID Not-Taking NEGATED: Highlighted row has not occurred!citalopram (CeleXA) 20 mg Tablet Directions: 1 tablet oral daily (1 source) take 1 tablet by mouth once daily citalopram (CeleXA) 20 mg Tablet Directions: 1 tablet oral daily NEGATED: Highlighted row has not occurred!hydrOXYzine HCl 25 mg Tablet Directions: 1 tablet oral daily PRN pain (1 source) take 1 tablet by mouth once daily as needed for pain hydrOXYzine HCl 25 mg Tablet Directions: 1 tablet oral daily PRN pain NEGATED: Highlighted row has not occurred!ibuprofen 600 mg oral tablet (1 source) Nonsteroidal Anti-inflammatory Drug take 1 tablet by mouth twice daily ibuprofen 600 mg Tablet, Ordered By: Lima Joseph MD Directions: 1 tablet Oral twice a day NEGATED: Highlighted row has not occurred!indomethacin 25 mg oral capsule (1 source) Nonsteroidal Anti-inflammatory Drug take 1 capsule by mouth once daily indomethacin 25 mg Capsule, Ordered By: Lima Joseph MD Directions: 1 capsule Oral daily NEGATED: Highlighted row has not occurred!mirtazapine 15 mg oral tablet (1 source) take 1 tablet by mouth once daily at bedtime mirtazapine 15 mg Tablet, Ordered By: Lima Joseph MD Directions: 1 tablet oral daily at bedtime NEGATED: Highlighted row has not occurred!montelukast 10 mg oral tablet (1 source) Leukotriene Receptor Antagonist take 1 tablet by mouth once daily montelukast 10 mg Tablet, Ordered By: Lima Joseph MD Directions: 1 tablet Oral daily Problems Active Problems Problem Classification Problem Date Documented Date Episodic/Chronic Allergic reactions (20 sources) Eczema; Translations: [Dermatitis, unspecified] Episodic Anxiety disorders (20 sources) Anxiety; Translations: [Anxiety state, unspecified] Onset: 04-14-2021 Resolved: 01-30-2022 Chronic Blindness and vision defects (4 sources) Unspecified visual disturbance; Translations: [Visual disturbance] Onset: 01-30-2022 Resolved: 01-30-2022 Episodic Cancer of brain and nervous system (20 sources) Glial tumor of brain; 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, unspecified] Onset: 10-13-2021 Resolved: 07-19-2023 Chronic Cancer of head and neck (20 sources) Squamous cell carcinoma of head and neck; 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 of head, face and neck] Onset: 10-13-2021 Chronic Cancer of head and neck (15 sources) History of malignant neoplasm of head and/or neck; Translations: [Personal history of malignant neoplasm of unspecified site of lip, oral cavity, and pharynx] 08-02-2023 Episodic Cancer; other and unspecified primary (3 sources) History of squamous cell carcinoma; Translations: [Personal history of malignant neoplasm of other sites] Episodic Cardiac dysrhythmias (16 sources) Cardiac arrhythmia; Translations: [Cardiac arrhythmia, unspecified] Chronic Cataract (4 sources) Age-related nuclear cataract of right eye; Translations: [Age-related nuclear cataract, right eye] Onset: 12-10-2022 12-10-2022 Chronic Conditions associated with dizziness or vertigo (20 sources) Lightheadedness; Translations: [Dizziness and giddiness] Onset: 12-10-2022 Episodic Conduction disorders (20 sources) First degree atrioventricular block; Translations: [Atrioventricular block, first degree] 08-02-2023 Chronic Coronary atherosclerosis and other heart disease (1 source) Coronary atherosclerosis and other heart disease; Translations: [Atherosclerosis of [place] arteries of extremities with intermittent claudication, right leg] Onset: 05-07-2023 Disorders of lipid metabolism (20 sources) Hyperlipidemia; Translations: [Hyperlipidemia, unspecified] Onset: 09-19-2021 Resolved: 09-19-2021 Chronic Essential hypertension (4 sources) Essential hypertension; Translations: [Essential (primary) hypertension] Chronic Glaucoma (2 sources) Preglaucoma, unspecified, right eye; Translations: [Preglaucoma, unspecified] Onset: 12-29-2022 12-29-2022 Chronic Headache; including migraine (20 sources) Migraine; Translations: [Migraine, unspecified, not intractable, without status migrainosus] Onset: 12-10-2022 Chronic Headache; including migraine (20 sources) Headache; Translations: [Headache] Episodic Lymphadenitis (1 source) Enlarged lymph nodes, unspecified Episodic Malignant neoplasm without specification of site (2 sources) Primary malignant neoplasm; Translations: [Malignant (primary) neoplasm, unspecified] Onset: 12-10-2022 12-10-2022 Chronic Mood disorders (3 sources) Depressive disorder; Translations: [Depressive disorder, not elsewhere classified] Chronic Osteoarthritis (20 sources) Arthritis; Translations: [Unspecified osteoarthritis, unspecified site] 08-02-2023 Chronic Other and unspecified benign neoplasm (2 sources) Acoustic neuroma; Translations: [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 Other and unspecified benign neoplasm (1 source) Benign neoplasm of cranial nerves; 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)] Onset: 09-22-2022 Chronic Other circulatory disease (1 source) Presence of other vascular implants and grafts Chronic Other circulatory disease (4 sources) Elevated blood-pressure reading, without diagnosis of hypertension Onset: 12-26-2021 Resolved: 12-26-2021 Episodic Other circulatory disease (15 sources) Elevated blood pressure; Translations: [Elevated blood-pressure reading, without diagnosis of hypertension] Episodic Other circulatory disease (1 source) Other specified symptoms and signs involving the circulatory and respiratory systems Episodic Other ear and sense organ disorders (16 sources) Otalgia, left ear; Translations: [Left ear pain] Episodic Other ear and sense organ disorders (11 sources) Bilateral tinnitus; Translations: [Tinnitus, bilateral] Episodic Other ear and sense organ disorders (1 source) Tinnitus, bilateral Episodic Other hereditary and degenerative nervous system conditions (2 sources) Isolated cervical dystonia; Translations: [Spasmodic torticollis] Onset: 07-03-2023 07-03-2023 Chronic Other lower respiratory disease (20 sources) Solitary nodule of lung; Translations: [Solitary pulmonary nodule] Episodic Other nervous system disorders (3 sources) Demyelinating disease of central nervous system; Translations: [Other demyelinating diseases of central nervous system] Chronic Other nervous system disorders (20 sources) Mass lesion of brain; Translations: [Other specified disorders of brain] 08-02-2023 Chronic Other nervous system disorders (5 sources) Disorder of brain, unspecified Onset: 10-24-2021 Resolved: 01-30-2022 Chronic Other nervous system disorders (2 sources) Raised intracranial pressure; Translations: [Benign intracranial hypertension] Chronic Other nervous system disorders (1 source) Benign intracranial hypertension Chronic Other nervous system disorders (1 source) Normal pressure hydrocephalus; Translations: [(Idiopathic) normal pressure hydrocephalus] Chronic Other nervous system disorders (1 source) (Idiopathic) normal pressure hydrocephalus; Translations: [NPH (normal pressure hydrocephalus) (HCC)] Onset: 09-28-2022 Chronic Other nervous system disorders (2 sources) Brachial plexus disorder; Translations: [Brachial plexus disorders] Onset: 11-23-2022 11-23-2022 Chronic Other nervous system disorders (2 sources) Ulnar neuropathy; Translations: [Lesion of ulnar nerve, unspecified upper limb] Onset: 12-29-2022 12-29-2022 Chronic Other nervous system disorders (6 sources) Finding of sensation of upper limb; Translations: [Paresthesia of skin] Episodic Other nervous system disorders (20 sources) Paresthesia of left lower limb; Translations: [Paresthesia of skin] 08-02-2023 Episodic Other nervous system disorders (2 sources) Anesthesia of skin Onset: 01-30-2022 Resolved: 01-30-2022 Episodic Other nervous system disorders (14 sources) Burning sensation; Translations: [Other disturbances of skin sensation] 08-02-2023 Episodic Other nervous system disorders (1 source) Other disturbances of skin sensation Episodic Other nervous system disorders (14 sources) Impairment of balance; Translations: [Other abnormalities of gait and mobility] Onset: 12-10-2022 12-10-2022 Episodic Other nervous system disorders (1 source) Other abnormalities of gait and mobility Episodic Other non-traumatic joint disorders (20 sources) Joint pain; Translations: [Pain in unspecified joint] 08-02-2023 Episodic Other non-traumatic joint disorders (2 sources) Pain in left shoulder; Translations: [Pain in joint, shoulder region] Onset: 07-23-2023 Episodic Other non-traumatic joint disorders (1 source) Pain in unspecified joint Episodic Other nutritional; endocrine; and metabolic disorders (3 sources) Weight loss; Translations: [Loss of weight] Episodic Other nutritional; endocrine; and metabolic disorders (3 sources) H/O: metabolic disorder; Translations: [Personal history of other endocrine, metabolic, and immunity disorders] Episodic Other skin disorders (20 sources) Mass of neck; Translations: [Localized swelling, mass and lump, neck] Episodic Other skin disorders (15 sources) Vesicular eczema; 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]] 08-02-2023 Episodic Other skin disorders (1 source) Dyshidrosis [pompholyx] Episodic Other upper respiratory disease (3 sources) Other specified disorders of nose and nasal sinuses Onset: 06-29-2021 Resolved: 06-29-2021 Episodic Other upper respiratory disease (4 sources) Nasal sinus problem; Translations: [Other specified disorders of nose and nasal sinuses] Episodic Other upper respiratory infections (13 sources) Sinusitis; Translations: [Chronic sinusitis, unspecified] Onset: 06-30-2021 Resolved: 06-30-2021 Chronic Other upper respiratory infections (1 source) Acute pharyngitis, unspecified Episodic Otitis media and related conditions (8 sources) Acute transudative otitis media; Translations: [Other acute nonsuppurative otitis media, left ear] 02-26-2023 Episodic Peripheral and visceral atherosclerosis (20 sources) Intermittent claudication; Translations: [Peripheral vascular disease, unspecified] Onset: 04-25-2023 Chronic Residual codes; unclassified (20 sources) Insomnia; Translations: [Insomnia, unspecified] Onset: 12-10-2022 12-10-2022 Episodic Residual codes; unclassified (2 sources) Insomnia, unspecified Episodic Secondary malignancies (3 sources) Metastasis to head and neck lymph node; Translations: [Secondary and unspecified malignant neoplasm of lymph nodes of head, face, and neck] Chronic Secondary malignancies (2 sources) Secondary malignant neoplastic disease; Translations: [Other malignant neoplasm without specification of site] Chronic Secondary malignancies (2 sources) Secondary malignant neoplasm of lymph node; Translations: [Secondary and unspecified malignant neoplasm of lymph node, unspecified] Onset: 12-10-2022 12-10-2022 Chronic Spondylosis; intervertebral disc disorders; other back problems (20 sources) Cervical spondylosis; Translations: [Spondylosis without myelopathy or radiculopathy, cervical region] Onset: 12-10-2022 Chronic Spondylosis; intervertebral disc disorders; other back problems (20 sources) Neck pain; Translations: [Cervicalgia] Onset: 12-05-2021 Resolved: 01-30-2022 Episodic Substance-related disorders (20 sources) Nicotine dependence with current use; Translations: [Nicotine dependence, unspecified, uncomplicated] Onset: 04-14-2021 Resolved: 04-14-2021 Chronic Thyroid disorders (3 sources) Thyroid nodule; 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 Transient cerebral ischemia (20 sources) Transient cerebral ischemia; Translations: [Transient cerebral ischemic attack, unspecified] Chronic Unclassified (1 source) Otalgia, left ear; Translations: [Otalgia, left ear] Onset: 02-26-2023 Viral infection (5 sources) Respiratory syncytial virus infection; Translations: [Other specified viral diseases] Episodic Past or Other Problems Problem Classification Problem Date Documented Da te Episodic/Chronic Headache; including migraine (3 sources) Headache; including migraine Onset: 11-01-2021 Resolved: 01-30-2022 Malaise and fatigue (2 sources) Asthenia; Translations: [Weakness] Onset: 12-29-2022 12-29-2022 Episodic Other and unspecified benign neoplasm (2 sources) Schwannoma; Translations: [Benign neoplasm of peripheral nerves and autonomic nervous system, unspecified] Onset: 12-10-2022 12-10-2022 Episodic Other connective tissue disease (2 sources) Muscle pain; Translations: [Myalgia, unspecified site] Onset: 12-10-2022 12-10-2022 Episodic Other connective tissue disease (2 sources) Pain in left arm; Translations: [Pain in left arm] Onset: 12-29-2022 12-29-2022 Episodic Other connective tissue disease (2 sources) Spasm of cervical paraspinous muscle; Translations: [Other muscle spasm] Onset: 12-29-2022 12-29-2022 Episodic Other connective tissue disease (2 sources) Radicular pain; Translations: [Neuralgia and neuritis, unspecified] Onset: 04-04-2023 04-04-2023 Episodic Other lower respiratory disease (12 sources) Multiple nodules of lung; Translations: [Other nonspecific abnormal finding of lung field] Onset: 10-13-2021 Episodic Other lower respiratory disease (1 source) Other nonspecific abnormal finding of lung field; Translations: [Lung nodules] Onset: 10-13-2021 Episodic Other nervous system disorders (20 sources) Skin sensation disturbance; Translations: [Anesthesia of skin] Onset: 12-29-2022 12-29-2022 Episodic Other screening for suspected conditions (not mental disorders or infectious disease) (20 sources) Encounter for screening for malignant neoplasm of prostate; Translations: [Magnetic resonance imaging of brain abnormal] Onset: 09-19-2021 Resolved: 09-19-2021 Episodic Other skin disorders (1 source) Generalized hyperhidrosis; Translations: [Generalized hyperhidrosis] Onset: 03-30-2023 Episodic Other upper respiratory disease (1 source) Nasal congestion Onset: 04-19-2021 Resolved: 04-19-2021 Episodic Residual codes; unclassified (1 source) Other general symptoms and signs Onset: 01-30-2022 Resolved: 01-30-2022 Episodic Unclassified (1 source) Pressure in head R51.9 Onset: 12-26-2021 Resolved: 12-26-2021 Unclassified (1 source) Cough R05.9 Unclassified (1 source) Acute cough R05.1 Results Test Name Value Interpretation Reference Range Facility MRI BRAIN W WO CONTRASTon MRI BRAIN W WO CONTRAST EXAMINATION: MRI OF THE BRAIN WITHOUT AND WITH CONTRAST 07/18/2023 3:41 pm TECHNIQUE: Multiplanar multisequence MRI of the head/brain was performed without and with the administration of intravenous contrast. COMPARISON: None. HISTORY: ORDERING SYSTEM PROVIDED HISTORY: Cervical stenosis of spine TECHNOLOGIST PROVIDED HISTORY: STAT Creatinine as needed:->Yes What reading provider will be dictating this exam?->CRC FINDINGS: INTRACRANIAL STRUCTURES/VENTRICLES: There is no sign of acute infarct. There is patchy increased T2 signal throughout the right naldo and in the medial left naldo. This is not associated with any hemorrhage or enhancement. The findings are worrisome for low grade malignancy such as a glioma. Infectious or inflammatory process cannot be excluded, although this seems unlikely given the absence of enhancement. No mass effect or midline shift. No evidence of an acute intracranial hemorrhage. There is mild dilatation of the ventricles and sulci representing age-appropriate atrophy. There is minimal periventricular and subcortical white matter T2 signal abnormality representing age-appropriate small vessel ischemia. The sellar/suprasellar regions appear unremarkable. The normal signal voids within the major intracranial vessels appear maintained. ORBITS: There are changes of left cataract surgery. The right globe is normal in appearance. SINUSES: There is mucosal thickening in the inferior right maxillary sinus from mild chronic sinusitis. The rest of the visualized paranasal sinuses and mastoid air cells demonstrate no acute abnormality. BONES/SOFT TISSUES: The bone marrow signal intensity appears normal. The soft tissues demonstrate no acute abnormality. IMPRESSION: 1. Abnormal increased T2 signal in the naldo, right greater than left, worrisome for low-grade malignancy such as a glioma. Infectious or inflammatory process cannot be excluded, although this seems unlikely given the absence of enhancement. 2. No acute intracranial hemorrhage, infarction, mass effect or midline shift elsewhere in the brain Interpreted by: Vitor Hickman MD Signed by: Vitor Hickman MD 08/01/23 Final result Normal [facility] MRI CERVICAL SPINE WO CONTRA STon 07-18-2023 MRI CERVICAL SPINE WO CONTRAST EXAMINATION: MRI OF THE CERVICAL SPINE WITHOUT CONTRAST 07/18/2023 3:41 pm TECHNIQUE: Multiplanar multisequence MRI of the cervical spine was performed without the administration of intravenous contrast. COMPARISON: None. HISTORY: ORDERING SYSTEM PROVIDED HISTORY: Cervical stenosis of spine TECHNOLOGIST PROVIDED HISTORY: Reason for exam:->LUE sx What reading provider will be dictating this exam?->CRC FINDINGS: BONES/ALIGNMENT: There is grade 1 anterior subluxation of C4 on C5 which is degenerative, associated with moderate right and mild left facet arthropathy. There is minimal anterior subluxation of C7 on T1. The vertebral body heights are maintained. The bone marrow signal appears unremarkable. SPINAL CORD: No abnormal cord signal is seen. SOFT TISSUES: No paraspinal mass identified. C2-C3: Minimal left lateral disc bulging and posterior osteophytic ridging without spinal stenosis. No foraminal stenosis. Mild loss of disc height from disc degenerative disease. C3-C4: Mild diffuse disc bulging and posterior osteophytic ridging without contact with the anterior cervical cord, cord flattening, or spinal stenosis. Moderate bilateral foraminal stenosis from uncovertebral joint hypertrophy. Moderate loss of disc height from disc degenerative disease. C4-C5: Mild diffuse disc bulging without contact with the anterior cervical cord, cord flattening, or spinal stenosis. Mild bilateral foraminal narrowing from uncovertebral joint hypertrophy. Mild loss of disc height from disc degenerative disease. C5-C6: Mild broad disc bulge with posterior osteophytic ridging, without contact with the anterior cervical cord or cord flattening. No spinal stenosis. Moderate left and mild right foraminal stenosis from uncovertebral joint hypertrophy. Prominent loss of disc height from disc degenerative disease. C6-C7: Mild left greater than right lateral disc bulging with posterior osteophytic ridging. No impingement upon the anterior cervical cord or cord flattening. No spinal stenosis. Severe left and mild right foraminal stenosis from uncovertebral joint hypertrophy. Prominent loss of disc height from disc degenerative disease. C7-T1: There is no significant disc protrusion, spinal canal stenosis or neural foraminal narrowing. T1-2: Mild broad disc bulge with posterior osteophytic ridging without contact with the anterior thoracic cord, cord flattening, or spinal stenosis. Moderate bilateral foraminal zone disc bulging without contact with the exiting nerve roots. Prominent loss of disc height from disc degenerative disease. IMPRESSION: 1. No acute abnormality. No focal disc herniation, spinal stenosis or impingement upon the cervical cord. 2. Multilevel degenerative changes with mild disc bulging and posterior osteophytic ridging, as described above. Prominent loss of disc height from disc degenerative disease at C5-C6, C6-C7 and T1-T2. 3. Neural foraminal stenosis at multiple levels, severe on the left at C6-C7. Interpreted by: Vitor Hickman MD Signed by: Vitor Hickman MD 08/01/23 Final result Normal [facility] COVID + FLU Quick Testingon 07-02-2023 SARS-CoV-2 (COVID-19) RNA JER+probe Ql (Unsp spec) Negative [facility] Other COVID + FLU Quick Testing Negative [facility] Other Quick Strepon 07-02-2023 S. pyogenes Org specific cx Ql (Throat) Negative [facility] Other Quick Strep [facility] Other RSVon 07-02-2023 RSV Ag IA Ql (Unsp spec) Negative [facility] Other US UNI ankle/arm indiceson 1 07-31-2022 US UNI ankle/arm indices [facility] [place] [address] [place] [address] Ultrasound Report Signed Patient: Jovani Melendez MR#: [id number] : 1960 Acct:[id number] Age/Sex: 62 / M ADM Date: 05/30/23 Loc: [facility] Room: Type: [facility] Attending Dr: Ruddy Harvey MD Ordering Provider: Ruddy Harvey MD Date of Service: 05/30/23 US/US UNI ankle/arm indices: I72.11 Copies to: Ruddy Harvey MD LOWER EXTREMITY SEGMENTAL ARTERIAL DOPSCAN (PVR) INDICATION: New baseline study after right external iliac artery stent placement. PROCEDURE: Right arm blood pressure is 152 , left is 146 . Pressures at the right ankle are 168 using the posterior tibial artery, and 150 using the dorsalis pedis artery with ankle-brachial index of 1.11 0.99 . Wave forms by plethysmography are normal. US/US UNI ankle/arm indices IMPRESSION: NO HEMODYNAMICALLY SIGNIFICANT PERIPHERAL VASCULAR OCCLUSIVE DISEASE AT REST IN EITHER LOWER EXTREMITY. Impression dictated by: Ruddy Harvey MD05/30/2023 1:37 PM Dictation Location: [place] [address] Tech: Agueda Helm Transcribed By: [facility] 05/30/231336 Dictated By: Ruddy Harvey MD 05/30/231336 Signed By: 05/30/231336 [facility] Blood Urea Nitrogenon 2022 Urea nitrogen [Mass/Vol] 15 mg/dL Normal 7-25 [facility] Comment on above: Performed By: #### C MARKEL BUN ####[place] [address] [address] Creatinineon 05-07-2023 Creatinine [Mass/Vol] 0.91 mg/dL Normal 0.70-1.30 [facility] Comment on above: Performed By: #### C MARKEL BUN ####[place] [address] [place] [id number] [place] Creatinine Clr Calc Pharmacy 83.52 [facility] Comment on above: Result Comment: PERF ORMED BY: [facility] [address] [place] [address] PATHOLOGIST RETORT OR CONDENSER PRESS OPERATOR CARMEN LYNCH M.D. Performed By: #### C MARKEL BUN ####[place] [address] [place] [id number] [place] GFR/1.73 sq M.predicted MDRD (S/P/Bld) [Vol rate/Area] mL/min/{1.73_m2} [facility] Comment on above: Performed By: #### C MARKEL BUN ####[place] [address] [place] [id number] [place] Creatinine [Mass/volume] in Serum or PlasmaOrdered By: Ruddy Harvey on 05-07-2023 Creatinine [Mass/Vol] 0.91 mg/dL 0.70-1.30 [facility] No Panel InformationOrdered By: Ruddy Harvey on 05-07-2023 Estimated GFR (CKD-EPI) > 60.0 mL/Min [facility] Creatinine Clearance (Chem 83.52 [facility] Urea nitrogen [Mass/volume] in Serum or PlasmaOrdered By: Ruddy Harvey on 05-07-2023 Urea nitrogen [Mass/Vol] 15 mg/dL [address] [facility] [address] angio neckon 05-04-2023 CT angio neck [facility] [place] [address] CT Scan Report Signed Patient: Jovani Melendez MR#: [id number] : 1960 Acct:[id number] Age/Sex: 62 / M ADM Date: 05/04/23 Loc: CT Room: Type: [facility] Attending Dr: Nikole Thomason APRN, CORPORATE HUMAN RESOURCES MANAGER-C Copies to: Nikole Thomason APRN,MICROPALEONTOLOGIST Ordering Provider: Nikole Thomason APRN, CNP Date of Service: 05/04/23 CT/CT angio neck: H53.9, I65.23, I65.1, I66.09, I65.29 ([id number]) CT/CT angio head: H53.9, I65.23, I65.1, I66.09, I65.29 CT angio head, CT angio neck 05/04/2023 2:33 PM SIGNS AND SYMPTOMS: Dizziness, blurred vision, history of tongue cancer CONTRAST: 90 mL of intravenous Isovue-370 TECHNIQUE: Multi-detector CT angiography axial slices of the head were obtained before and during intravenous administration of IV contrast material. Sagittal, coronal, and 3-D reconstructions were performed and viewed on a separate workstation. CT was performed with one or more of the following dose reduction techniques: Automated exposure control, adjustment of the mA and/or kV according to patient size, or use of iterative reconstruction technique. Stenoses were measured using the NASCET criteria. COMPARISON: None. FINDINGS: CTA HEAD: The superior cerebellar arteries, posterior inferior cerebellar arteries, and the basilar artery are within normal limits. The posterior cerebral arteries are unremarkable. The intracranial segments of the internal carotid arteries are within normal limits. There are normal anterior and middle cerebral arteries. Anterior communicating artery is patent. Posterior communicating arteries are present. The deep venous system and dural venous systems appear to be patent. No bony abnormalities are appreciated. CTA NECK: There is a normal three-vessel arch. The subclavian arteries are within normal limits. The vertebral arteries arise from the subclavian arteries and are normal in course and caliber up to the skull base. Calcified plaque is noted in the carotid bifurcations without significant stenosis. Visualized lung parenchyma is clear. Degenerative changes are noted in the cervical spine. No acute bony abnormalities are identified. The paraspinous soft tissues are within normal limits. CT/CT angio head IMPRESSION: No evidence of focal stenosis, aneurysmal dilatation, dissection or occlusion. Impression dictated by: Alber Goodson M.D.05/04/2023 4:34 PM Dictation Location: [place] [address] Transcribed By: [facility] 05/04/23 1634 Dictated By: Alber Goodson II, MD 05/04/23 1549 Signed By: 05/04/[address] [facility] Creatinine (Bld) [Mass/Vol]O rdered By: Nikole Thomason on 05-04-2023 Creatinine [Mass/Vol] 0.9 mg/dL 0.6-1.3 [facility] Comment on above: ER/ESD physician is notified/shown all ISTAT results.Critical values may be confirmed by laboratory testing ifdeemed necessary by ER attending doctor. ISTAT XRay CREon 05-04-2023 Creatinine [Mass/Vol] 0.9 mg/dL Normal 0.6-1.3 [facility] Comment on above: Result Comment: ER/E SD physician is notified/shown all ISTAT results. Critical values may be confirmed by laboratory testing if deemed necessary by ER attending doctor. Performed By: #### I SCRE #### [address] ISTAT GFR > 60.0 [facility] Comment on above: Result Comment: PERF ORMED BY: [address] [place] [address] PATHOLOGIST RETORT OR CONDENSER PRESS OPERATOR CARMEN LYNCH M.D. Performed By: #### I SCRE #### [facility] [address] No Panel InformationOrdered By: Nikole Thomason on 05-04-2023 Bedside Estimated GFR (eGFR) > 60.0 [facility] US arterial pvr rest Tom US arterial pvr rest LE [facility] [place] [address] [place] [address] Ultrasound Report Signed Patient: Jovani Melendez MR#: [id number] : 1960 Acct:[id number] Age/Sex: 62 / M ADM Date: 04/25/23 Loc: Room: Type: [facility] Attending Dr: Lilliam Cason MD Ordering Provider: Lilliam Cason MD Date of Service: 04/25/23 US/US arterial pvr rest LE: Claudication Copies to: Lilliam Cason MD LOWER EXTREMITY SEGMENTAL ARTERIAL DOPSCAN (PVR) INDICATION: Right leg claudication PROCEDURE: Right arm blood pressure is 165 , left is 156 . Pressures throughout the right leg are 124 at the high thigh, 139 at the low thigh, 102 at the calf, 126 at the ankle using the posterior tibial artery and 104 at the ankle using the dorsalis pedis artery with ankle- brachial index of 0.63 0.76 . Pressures throughout the left leg are 237 at the high thigh, 214 at the low thigh, 174 at the calf, 193 at the ankle using the posterior tibial artery and 178 at the ankle using the dorsalis pedis artery with ankle-brachial index of 1.08 1.17 . Wave forms by plethysmography are weakly biphasic in the right lower extremity. There are normal left lower extremity.. 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 Impression dictated by: Ruddy Harvey MD04/26/2023 9:47 AM Dictation Location: [place] [address] Tech: Elisabet Mcclellan Transcribed By: MARISA 04/26/23 0947 Dictated By: Ruddy Harvey MD 04/26/2345 Signed By: 04/26/23 0947 Normal [facility] Alanine aminotransferase [En zymatic activity/volume] in Serum or PlasmaOrdered By: Griselda Krause on 03-30-2023 ALT [Catalytic activity/Vol] 10 U/L Normal 7-52 [facility] Comment on above: Order Comment: Reaso n for Exam Night sweats;Hyperlipidemia Performed By: #### C MP, TSH3, CBC, LIPID #### [facility] [address] Albumin [Mass/volume] in Ser um or Plasma by Bromocresol green (BCG) dye binding methoOrdered By: Griselda Krause on 03-30-2023 Albumin BCG dye [Mass/Vol] 4.2 g/dL 3.5-5.7 [facility] Alkaline phosphatase [Enzyma tic activity/volume] in Serum or PlasmaOrdered By: Griselda Krause on 03-30-2023 ALP [Catalytic activity/Vol] 61 U/L Normal 34-104 [facility] Comment on above: Order Comment: Reaso n for Exam Night sweats;Hyperlipidemia Performed By: #### C MP, TSH3, CBC, LIPID #### [facility] [address] [place] [address] [place] Aspartate aminotransferase [ Enzymatic activity/volume] in Serum or PlasmaOrdered By: Griselda Krause on 03-30-2023 AST [Catalytic activity/Vol] 8 U/L Low 13-39 [facility] Comment on above: Order Comment: Reaso n for Exam Night sweats;Hyperlipidemia Performed By: #### C MP, TSH3, CBC, LIPID #### [facility] [address] [place] [address] [place] Automated basophil %Ordered By: Griselda Krause on 03-30-2023 Basophils/100 WBC (Bld) 0.8 % Normal . [facility] Comment on above: Order Comment: Reaso n for Exam Night sweats;Hyperlipidemia Performed By: #### C MP, TSH3, CBC, LIPID #### [facility] [address] [place] [address] [place] Automated basophil countOrde red By: Griselda Krause on 03-30-2023 Basophils (Bld) [#/Vol] 0.1 10*3/uL Normal 0.0-0.2 [facility] Comment on above: Order Comment: Reaso n for Exam Night sweats;Hyperlipidemia Result Comment: PERF ORMED BY: [place] [address] PATHOLOGIST RETORT OR CONDENSER PRESS OPERATOR CARMEN LYNCH M.D. Performed By: #### C MP, TSH3, CBC, LIPID #### [address] Automated blood monocyte cou ntOrdered By: Griselda Krause on 03-30-2023 Monocytes (Bld) [#/Vol] 0.8 10*3/uL Normal 0.0-0.8 [facility] Comment on above: Order Comment: Reaso n for Exam Night sweats;Hyperlipidemia Performed By: #### C MP, TSH3, CBC, LIPID #### [address] Automated eosinophil %Ordere d By: Griselda Krause on 03-30-2023 Eosinophils/100 WBC (Bld) 0.6 % Normal . [facility] Comment on above: Order Comment: Reaso n for Exam Night sweats;Hyperlipidemia Performed By: #### C MP, TSH3, CBC, LIPID #### [facility] [address] [place] [address] Automated eosinophil countOr dered By: Griselda Krause on 03-30-2023 Eosinophils (Bld) [#/Vol] 0.1 10*3/uL Normal 0.0-0.45 [facility] Comment on above: Order Comment: Reaso n for Exam Night sweats;Hyperlipidemia Performed By: #### C MP, TSH3, CBC, LIPID #### [facility] [address] [place] [address] Automated monocyte %Ordered By: Griselda Krause on 03-30-2023 Monocytes/100 WBC (Bld) 8.0 % Normal . [facility] Comment on above: Order Comment: Reaso n for Exam Night sweats;Hyperlipidemia Performed By: #### C MP, TSH3, CBC, LIPID #### [facility] [address] [place] [address] [place] Automated neutrophil %Ordere d By: Griselda Krause on 03-30-2023 Neutrophils/100 WBC (Bld) 73.8 % Normal . [facility] Comment on above: Order Comment: Reaso n for Exam Night sweats;Hyperlipidemia Performed By: #### C MP, TSH3, CBC, LIPID #### [facility] [address] Bilirubin.total [Mass/volume ] in Serum or PlasmaOrdered By: Griselda Krause on 03-30-2023 Bilirubin [Mass/Vol] 0.9 mg/dL Normal 0.3-1.0 [facility] Comment on above: Order Comment: Reaso n for Exam Night sweats;Hyperlipidemia Performed By: #### C MP, TSH3, CBC, LIPID #### [facility] [address] [place] [address] [place] Calcium [Mass/volume] in Ser um or PlasmaOrdered By: Griselda Krause on 03-30-2023 Calcium [Mass/Vol] 9.1 mg/dL Normal 8.6-10.3 [facility] Comment on above: Order Comment: Reaso n for Exam Night sweats;Hyperlipidemia Performed By: #### C MP, TSH3, CBC, LIPID #### [facility] [address] Carbon dioxide, total [Moles /volume] in Serum or PlasmaOrdered By: Griselda Krause on 03-30-2023 CO2 [Moles/Vol] 27.0 mmol/L Normal 21.0-31.0 [facility] Comment on above: Order Comment: Reaso n for Exam Night sweats;Hyperlipidemia Performed By: #### C MP, TSH3, CBC, LIPID #### [facility] [address] [place] [address] [place] Chloride [Moles/volume] in S r[place] or PlasmaOrdered By: Griselda Krause on 03-30-2023 Chloride [Moles/Vol] 103 mmol/L Normal 98-107 [facility] Comment on above: Order Comment: Reaso n for Exam Night sweats;Hyperlipidemia Performed By: #### C MP, TSH3, CBC, LIPID #### [facility] [address] Cholesterol [Mass/volume] in Serum or PlasmaOrdered By: Griselda Krause on 03-30-2023 Cholesterol [Mass/Vol] 224 mg/dL High 140-200 [facility] Comment on above: Chol less than 200 m g/dl low riskChol 201-239 mg/dl borderline riskChol 240 mg/dl and greater high risk Order Comment: Reaso n for Exam Night sweats;Hyperlipidemia Result Comment: Chol less than 200 mg/dl low risk Chol 201-239 mg/dl borderline risk Chol 240 mg/dl and greater high risk Performed By: #### C MP, TSH3, CBC, LIPID #### [facility] [address] Cholesterol in LDL Calc [Mas s/Vol]Ordered By: Griselda Krause on 03-30-2023 Cholesterol in LDL [Mass/Vol] 148 mg/dL 0-100 [facility] Comment on above: LDL ATP III CLASSIFI CATIONLDL less than 100 mg/dL OptimalLDL 100-129 mg/dL Near or above optimalLDL 130-159 mg/dL Borderline highLDL 160-189 mg/dL HighLDL greater than 189 mg/dL Very high Cholesterol in VLDL Calc [Ma ss/Vol]Ordered By: Griselda Krause on 03-30-2023 Cholesterol in VLDL [Mass/Vol] 31 mg/dL [facility] Complete Blood Count Auto Di ffon 03-30-2023 Mean Corpuscular HGB Conc 34.9 g/dL Normal 32.5-35.6 [facility] Comment on above: Order Comment: Reaso n for Exam Night sweats;Hyperlipidemia Performed By: #### C MP, TSH3, CBC, LIPID #### [facility] [address] NRBC% 0.1 /100{WBC} Normal 0-0.5 [facility] Comment on above: Order Comment: Reaso n for Exam Night sweats;Hyperlipidemia Performed By: #### C MP, TSH3, CBC, LIPID #### [facility] [address] Comprehensive Metabolic Pane chanel 03-30-2023 Albumin [Mass/Vol] 4.2 g/dL Normal 3.5-5.7 [facility] Comment on above: Order Comment: Reaso n for Exam Night sweats;Hyperlipidemia Performed By: #### C MP, TSH3, CBC, LIPID #### [facility] [address] GFR/1.73 sq M.predicted MDRD (S/P/Bld) [Vol rate/Area] mL/min/{1.73_m2} Normal [facility] Comment on above: Order Comment: Reaso n for Exam Night sweats;Hyperlipidemia Performed By: #### C MP, TSH3, CBC, LIPID #### [facility] [address] [place] [address] Creatinine [Mass/volume] in Serum or PlasmaOrdered By: Griselda Krause on 03-30-2023 Creatinine [Mass/Vol] 0.82 mg/dL Normal 0.70-1.30 [facility] Comment on above: Order Comment: Reaso n for Exam Night sweats;Hyperlipidemia Performed By: #### C MP, TSH3, CBC, LIPID #### [facility] [address] [place] [address] Erythrocyte distribution wid th [Ratio] by Automated countOrdered By: Griselda Krause on 03-30-2023 Erythrocyte distribution width (RBC) [Ratio] 14.1 % Normal 12.0-14.8 [facility] Comment on above: Order Comment: Reaso n for Exam Night sweats;Hyperlipidemia Performed By: #### C MP, TSH3, CBC, LIPID #### [facility] [address] [place] [address] Erythrocytes [#/volume] in B lood by Automated countOrdered By: Griselda Krause on 03-30-2023 RBC (Bld) [#/Vol] 4.26 10*6/uL Normal 3.90-5.60 [facility] Comment on above: Order Comment: Reaso n for Exam Night sweats;Hyperlipidemia Performed By: #### C MP, TSH3, CBC, LIPID #### [facility] [address] [place] [address] [place] Glucose [Mass/volume] in Ser um or PlasmaOrdered By: Griselda Krause on 03-30-2023 Glucose [Mass/Vol] 83 mg/dL Normal 70-100 [facility] Comment on above: ADA recommended refe rence rangeRandom Glucose Reference Range is dependent on time and content of last meal. Glucose of more than 200 mg/dL in a nonstressed, ambulatory subject supports the diagnosis of Diabetes Mellitus. Order Comment: Reaso n for Exam Night sweats;Hyperlipidemia Result Comment: Ailey om Glucose Reference Range is dependent on time and content of last meal. Glucose of more than 200 mg/dL in a nonstressed, ambulatory subject supports the diagnosis of Diabetes Mellitus. ADA recommended reference range Performed By: #### C MP, TSH3, CBC, LIPID #### [facility] [address] Hematocrit [Volume Fraction] of Blood by Automated countOrdered By: Griselda Krause on 03-30-2023 Hematocrit (Bld) [Volume fraction] 41.4 % Normal 38.8-50.0 [facility] Comment on above: Order Comment: Reaso n for Exam Night sweats;Hyperlipidemia Performed By: #### C MP, TSH3, CBC, LIPID #### [facility] [address] Hemoglobin [Mass/volume] in BloodOrdered By: Griselda Krause on 03-30-2023 Hemoglobin (Bld) [Mass/Vol] 14.4 g/dL Normal 13.0-17.0 [facility] Comment on above: Order Comment: Reaso n for Exam Night sweats;Hyperlipidemia Performed By: #### C MP, TSH3, CBC, LIPID #### [facility] [address] [place] [address] [place] Leukocytes [#/volume] correc mone for nucleated erythrocytes in Blood by Automated counOrdered By: Griselda Krause on 03-30-2023 WBC corrected for nucl RBC Auto (Bld) [#/Vol] 10.0 10*3/uL 4.1-10.5 [facility] Leukocytes [#/volume] in Blo od by Automated countOrdered By: Griselda Krause on 03-30-2023 WBC (Bld) [#/Vol] 10.0 10*3/uL Normal 4.1-10.5 [facility] Comment on above: Order Comment: Reaso n for Exam Night sweats;Hyperlipidemia Performed By: #### C MP, TSH3, CBC, LIPID #### [facility] [address] Lipid Panelon 03-30-2023 LDL Cholesterol,Calculated 148 mg/dL High 0-100 [facility] Comment on above: Order Comment: Reaso n for Exam Night sweats;Hyperlipidemia Result Comment: LDL ATP III CLASSIFICATION LDL less than 100 mg/dL Optimal LDL 100-129 mg/dL Near or above optimal LDL 130-159 mg/dL Borderline high LDL 160-189 mg/dL High LDL greater than 189 mg/dL Very high Performed By: #### C MP, TSH3, CBC, LIPID #### [facility] [address] Triglyceride w/Reflex 159 mg/dL High 0-149 [facility] Comment on above: Order Comment: Reaso n for Exam Night sweats;Hyperlipidemia Result Comment: TRIG ATP III CLASSIFICATION TRIG less than 150 mg/dL Normal TRIG 150-199 mg/dL Borderline high TRIG 200-500 mg/dL High TRIG greater than 500 mg/dL Very high Standard traceable to the Center for Disease Conrtrol and Prevention (CDC) test method. Performed By: #### C MP, TSH3, CBC, LIPID #### [facility] [address] VLDL CHOLESTEROL 31 mg/dL Normal [facility] Comment on above: Order Comment: Reaso n for Exam Night sweats;Hyperlipidemia Performed By: #### C MP, TSH3, CBC, LIPID #### [facility] [address] Lymphocytes [#/volume] in Bl ood by Automated countOrdered By: Griselda Krause on 03-30-2023 Lymphocytes (Bld) [#/Vol] 1.7 10*3/uL Normal 1.00-4.8 [facility] Comment on above: Order Comment: Reaso n for Exam Night sweats;Hyperlipidemia Performed By: #### C MP, TSH3, CBC, LIPID #### [facility] [address] Lymphocytes/100 leukocytes i n Blood by Automated countOrdered By: Griselda Krause on 03-30-2023 Lymphocytes/100 WBC (Bld) 16.8 % Normal . [facility] Comment on above: Order Comment: Reaso n for Exam Night sweats;Hyperlipidemia Performed By: #### C MP, TSH3, CBC, LIPID #### [facility] [address] MCH [Entitic mass] by Automa mone countOrdered By: Griselda Krause on 03-30-2023 MCH (RBC) [Entitic mass] 33.9 pg Normal 27.5-35.2 [facility] Comment on above: Order Comment: Reaso n for Exam Night sweats;Hyperlipidemia Performed By: #### C MP, TSH3, CBC, LIPID #### [facility] [address] [place] [address] MCHC Auto (RBC) [Mass/Vol]Or dered By: Griselda Krause on 03-30-2023 MCHC (RBC) [Mass/Vol] 34.9 g/dL 32.5-35.6 [facility] MCV [Entitic volume] by Auto mated countOrdered By: Griselda Krause on 03-30-2023 MCV (RBC) [Entitic vol] 97.1 fL Normal 83.5-101 [facility] Comment on above: Order Comment: Reaso n for Exam Night sweats;Hyperlipidemia Performed By: #### C MP, TSH3, CBC, LIPID #### [facility] [address] Neutrophils [#/volume] in Bl ood by Automated countOrdered By: Griselda Krause on 03-30-2023 Neutrophils (Bld) [#/Vol] 7.3 10*3/uL Normal 1.8-7.7 [facility] Comment on above: Order Comment: Reaso n for Exam Night sweats;Hyperlipidemia Performed By: #### C MP, TSH3, CBC, LIPID #### [facility] [address] No Panel InformationOrdered By: Griselda Krause on 03-30-2023 Estimated GFR (CKD-EPI) > 60.0 mL/Min [facility] Creatinine Clearance (Chem N/A [facility] Nucleated erythrocytes [Pres ence] in Blood by Automated countOrdered By: Griselda Krause on 03-30-2023 Nucleated RBC Auto Ql (Bld) 0.1 /100{WBC} 0-0.5 [facility] Platelet mean volume [Entiti c volume] in Blood by Automated countOrdered By: Griselda Krause on 03-30-2023 Platelet mean volume (Bld) [Entitic vol] 9.2 fL Normal 6.6-10.1 [facility] Comment on above: Order Comment: Reaso n for Exam Night sweats;Hyperlipidemia Performed By: #### C MP, TSH3, CBC, LIPID #### [facility] [address] [place] [address] Platelets [#/volume] in Bloo d by Automated countOrdered By: Griselda Krause on 03-30-2023 Platelets (Bld) [#/Vol] 221 10*3/uL Normal 150-450 [facility] Comment on above: Order Comment: Reaso n for Exam Night sweats;Hyperlipidemia Performed By: #### C MP, TSH3, CBC, LIPID #### [facility] [address] [place] [address] [place] Potassium [Moles/volume] in Serum or PlasmaOrdered By: Griselda Krause on 03-30-2023 Potassium [Moles/Vol] 4.1 mmol/L Normal 3.5-5.1 [facility] Comment on above: Order Comment: Reaso n for Exam Night sweats;Hyperlipidemia Performed By: #### C MP, TSH3, CBC, LIPID #### [facility] [address] [place] [address] [place] Protein [Mass/volume] in Ser um or PlasmaOrdered By: Griselda Krause on 03-30-2023 Protein [Mass/Vol] 6.1 g/dL Low 6.4-8.9 [facility] Comment on above: Order Comment: Reaso n for Exam Night sweats;Hyperlipidemia Performed By: #### C MP, TSH3, CBC, LIPID #### [facility] [address] Serum globulin measurement b y calculation (mass/volume)Ordered By: Griselda Krause on 03-30-2023 Globulin (S) [Mass/Vol] 1.9 g/dL [facility] Comment on above: Order Comment: Reaso n for Exam Night sweats;Hyperlipidemia Performed By: #### C MP, TSH3, CBC, LIPID #### [facility] [address] [place] [address] Serum or plasma albumin/glob ulin mass ratioOrdered By: Griselda Krause on 03-30-2023 Albumin/Globulin [Mass ratio] 2.2 {ratio} [facility] Comment on above: Order Comment: Reaso n for Exam Night sweats;Hyperlipidemia Performed By: #### C MP, TSH3, CBC, LIPID #### [facility] [address] [place] [address] Serum or plasma anion gap de terminationOrdered By: Griselda Krause on 03-30-2023 Anion gap [Moles/Vol] 12.1 mmol/L Normal 6.0-15.0 [facility] Comment on above: Order Comment: Reaso n for Exam Night sweats;Hyperlipidemia Performed By: #### C MP, TSH3, CBC, LIPID #### [facility] [address] [place] [address] Serum or plasma high density lipoprotein (HDL) cholesterol measurementOrdered By: Griselda Krause on 03-30-2023 Cholesterol in HDL [Mass/Vol] 44 mg/dL Normal 23-92 [facility] Comment on above: HDL CHOL ATP-III CLA SSIFICATION Cardiovascular RiskHDL > or equal to 60 mg/dL LOWHDL < 40 mg/dL HIGH Order Comment: Reaso n for Exam Night sweats;Hyperlipidemia Result Comment: HDL CHOL ATP-III CLASSIFICATION Cardiovascular Risk HDL > or equal to 60 mg/dL LOW HDL < 40 mg/dL HIGH Performed By: #### C MP, TSH3, CBC, LIPID #### [facility] [address] Serum or plasma total choles terol/high density lipoprotein (HDL) cholesterol mass ratOrdered By: Griselda Krause on 03-30-2023 Cholesterol.total/Chol esterol in HDL [Mass ratio] 5.1 {ratio} Normal <5.0 [facility] Comment on above: Order Comment: Reaso n for Exam Night sweats;Hyperlipidemia Performed By: #### C MP, TSH3, CBC, LIPID #### [facility] [address] Sodium [Moles/volume] in Ser um or PlasmaOrdered By: Griselda Krause on 03-30-2023 Sodium [Moles/Vol] 138 mmol/L Normal 136-145 [facility] Comment on above: Order Comment: Reaso n for Exam Night sweats;Hyperlipidemia Performed By: #### C MP, TSH3, CBC, LIPID #### [facility] [address] [place] [address] Thyrotropin [Units/volume] i n Serum or PlasmaOrdered By: Griselda Krause on 03-30-2023 TSH Qn 0.93 m[IU]/L Normal 0.45-5.33 [facility] Comment on above: Order Comment: Reaso n for Exam Night sweats;Hyperlipidemia Result Comment: PERF ORMED BY: [place] [address] PATHOLOGIST RETORT OR CONDENSER PRESS OPERATOR CARMEN LYNCH M.D. Performed By: #### C MP, TSH3, CBC, LIPID #### [facility] [address] Triglyceride [Mass/volume] i n Serum or PlasmaOrdered By: Griselda Krause on 03-30-2023 Triglyceride [Mass/Vol] 159 mg/dL 0-149 [facility] Comment on above: TRIG ATP III CLASSIF ICATIONTRIG less than 150 mg/dL NormalTRIG 150-199 mg/dL Borderline highTRIG 200-500 mg/dL High TRIG greater than 500 mg/dL Very highStandard traceable to the Center for Disease Conrtrol and Prevention (CDC) test method. Urea nitrogen [Mass/volume] in Serum or PlasmaOrdered By: Griselda Krause on 03-30-2023 Urea nitrogen [Mass/Vol] 10 mg/dL Normal 7-25 [facility] Comment on above: Order Comment: Reaso n for Exam Night sweats;Hyperlipidemia Performed By: #### C MP, TSH3, CBC, LIPID #### [facility] [address] COVID-19 Antigenon 3 COVID-19 Antigen Healthcare Worker?: N Reference Range: Negative Negative results, from patients with symptom onset beyond five days, should be treated as presumptive and confirmation with a molecular assay, if necessary, for patient management, may be performed. Negative results do not rule out COVID-19 and should not be used as the sole basis for treatment or patient management decisions, including infection control decisions. Negative results should be considered in the context of a patient's recent exposures, history and the presence of clinical signs and symptoms consistent with COVID-19. The Yenny SARS Antigen JAMILA does not differentiate between SARS-CoV and SARS-CoV-2. This test was developed and its performance characteristic determined by [employer] and validated at [facility]. This test has not been FDA cleared or approved. This test has been authorized by FDA under an Emergency Use Authorization (EUA). This test has been validated in accordance with the FDA's Guidance Document (Policy for Diagnostics Testing in Laboratories Certified to Perform High Complexity Testing under CLIA prior to Emergency Use Authorization for Coronavirus Disease-2019 during the Public Health Emergency) issued on September 18, 2019. This test is only authorized for the duration of time the declaration that circumstances exist justifying the authorization of the emergency use of in vitro diagnostic tests for detection of SARS-CoV-2 virus and/or diagnosis of COVID-19 infection under section 564(b)(1) of the Act, 21 U.S.C. 360bbb-3(b)(1), unless the authorization is terminated or revoked sooner. SARS-CoV+SARS-CoV-2 (COVID-19) Ag [Presence] in Respiratory specimen by Rapid immunoassay Negative for SARS Antigen by JAMILA PERFORMED BY: [facility] [address] [place] [id number] PATHOLOGIST RETORT OR CONDENSER PRESS OPERATOR CARMEN LYNCH M.D. Normal [facility] Comment on above: Performed By: #### S ESAUBASIA COVID-19 YENNY ####[facility] [place] [address] [facility] COVID-19 SOFIAOrdered By: Brandyn Gaytan on 02-26-2023 SARS-CoV+SARS-CoV-2 (COVID-19) Ag IA.rapid Ql (Resp) Negative Negative [facility] Comment on above: This is a duplicate Yenny SARS Antigen (JAMILA) result to be used for statistical tracking purpose only. No Panel InformationOrdered By: Daniel Gaytan on 02-26-2023 SARS Antigen (LFIA) [facility] SARS Antigen (LFIA) [facility] Yenny Ag Negativeon 02-27-20 23 Yenny Ag Negative Negative Normal Negative [facility] Comment on above: Result Comment: This is a duplicate Yenny SARS Antigen (JAMILA) result to be used for statistical tracking purpose only. PERFORMED BY: [facility] [address] [place] [id number] PATHOLOGIST RETORT OR CONDENSER PRESS OPERATOR CARMEN LYNCH M.D. Performed By: #### S HUMERA COVID-19 YENNY ####[place] [address] [place] [address] [facility] No Panel Informationon 12-28 XR Pain Management C ase (Reference Range: not available) *FINAL Date of Service: 12/28/2022 08:49 Adm #: [id number] Reading Dr:RICARDO CAPPS Signoff Dr: RICARDO CAPPS PROCEDURE: PAIN MANAGEMENT CASE - BXR 0999 REASON FOR EXAM: SPONDYLOSIS W/O MYELOPATHY OR RADICULOPATHY, CERVICAL REGION RESULT: Patient Name: JOVANI MELENDEZ STUDY: PAIN MANAGEMENT CASE INDICATION: SPONDYLOSIS W/O MYELOPATHY OR RADICULOPATHY, CERVICAL REGION COMPARISON: None. ACCESSION NUMBER(S): [id number] ORDERING CLINICIAN: LIMA JOSEPH TECHNIQUE: See below: FINDINGS: Fluoroscopy was provided during therapeutic puncture in the region of the cervical spine for pain management. Total fluoroscopy time: 14.56mgy, images: 4. IMPRESSION: Fluoroscopy for pain management. Dictation workstation: [id number] Original Interpreting Physician: RICARDO CAPPS M.D. Original Transcribed by/Date: MMODAL Dec 28 2022 6:14A Original Electronically Signed by/Date: RICARDO CAPPS M.D. Dec 28 2022 9:04A Addendum Interpreting Physician: Addendum Transcribed by/Date: NO ADDENDUM Addendum Electronically Signed by/Date: Globevestor Quick Strepon 12-05-2022 S. pyogenes Org specific cx Ql (Throat) Negative Vast Other Quick Strep [facility] Sitemasher Other XR pre/post mri xrayon 11-15 XR pre/post mri xray [facility] [place] [address] [place] [address] MRI Report Signed Patient: Jovani Melendez MR#: [id number] : 1960 Acct:[id number] Age/Sex: 61 / M ADM Date: 11/15/22 Loc: [facility] Room: Type: [facility] Attending Dr: [place] Joseph MD Copies to: [place] Joseph MD Ordering Provider: [place] Joseph MD Date of Service: 11/15/22 MR/MR lumbar spine wo con: [id number] ([id number]) XR/XR pre/post mri xray: LUMBAR PRES MRI Lumbar Spine withoutcontrast TECHNIQUE: Multiplanar T1 and T2-weighted imaging of lumbar spine obtained without contrast. HISTORY: Right-sided radiculopathy. Weakness. Right leg spasms. COMPARISON: 10/31/2004 The last fully segmented vertebral pair is operationally defined as L5/S1. POST SURGERY CHANGES: None BONE MARROW INFILTRATION: None BONE MARROW EDEMA: None BONY ALIGNMENT: Adequate bony alignment identified. SPINAL CANAL: No significant central canal narrowing. LUMBAR FRACTURE: None BONY LESIONS: None KIDNEYS: No hydronephrosis is identified. AORTA: No aortic aneurysm is seen. CONUS MEDULLARIS : The distal spinal cord is in adequate position without abnormality. Additional findings CONJOINED NERVE ROOT: None Lower thoracic level: Unremarkable L1-2 :Moderate spondylosis. Moderate diffuse disc bulge. Flattening of anterior thecal sac. Mild facet ligamentum flavum hypertrophy. Mild central canal stenosis. Mild bilateral neural foraminal narrowing greater on the right. L2-3: Moderate spondylosis. Diffuse disc bulge. Flattening of anterior thecal sac. Mild facet ligamentum flavum hypertrophy. Mild central canal stenosis. Mild to moderate bilateral neural foraminal narrowing. L3-4: Moderate spondylosis. Midline disc extrusion with concavity intrathecal sac. Facet ligamentum flavum hypertrophy. Mild to moderate central canal stenosis. Marked left and moderate right neural foraminal narrowing. L4-5: Moderate spondylosis. Diffuse disc bulge. Fissure of the midportion of the infraspinatus fibrosis posteriorly. Concavity of anterior thecal sac. Mild facet ligamentum flavum hypertrophy. Mild central canal stenosis. Marked left and moderate right neural foraminal narrowing. L5-S1: Moderate spondylosis. Diffuse disc bulge. Concavity intrathecal sac. Facet ligamentum flavum hypertrophy. Mild central canal stenosis. Marked bilateral neural foraminal narrowing greater on the left. MR/MR lumbar spine wo con IMPRESSION: Multilevel discovertebral degenerative changes with mild to moderate central canal stenoses and neural foraminal narrowing as above. Pre-MRI plain film assessment: 2 views of lumbar spine. Mild degenerative listhesis. Multilevel disc space narrowing most prominent the L5-S1 level. No fracture. Lower lumbar hypertrophic facet c hanges. Mild scoliosis. IMPRESSION: Degenerative change. Mild scoliosis. Impression dictated by: Filipe Perez M.D.11/15/2022 1:41 PM Dictation Location: [place] [address] Transcribed By: [facility] 11/15/22 1341 Dictated By: Filipe Perez DO 11/15/22 1332 Signed By: 11/15/[address] [facility] CBC W Auto Differential pane l (Bld)on 10-27-2022 Basophils (Bld) [#/Vol] 0.03 10*3/uL Normal <0.11 [facility] Comment on above: Order Comment: Speci men Type: BLOOD SPECIMEN Ordering Facility: [facility] Address: [address] [place] [id number] Performed By: #### 5 7021-8 #### [facility] CLIA [id number] [address] [place] [address] Basophils/100 WBC (Bld) 0.3 % Normal [facility] Comment on above: Order Comment: Speci men Type: BLOOD SPECIMEN Ordering Facility: [facility] Address: [address] [place] [address] Performed By: #### 5 7021-8 #### [facility] CLIA [id number] [address] [place] [address] Differential cell count method Nom (Bld) Auto Normal [facility] Comment on above: Order Comment: Speci men Type: BLOOD SPECIMEN Ordering Facility: [facility] Address: [address] [place] [address] Performed By: #### 5 7021-8 #### [facility] CLIA [id number] [address] [place] [address] Eosinophils (Bld) [#/Vol] 0.06 10*3/uL Normal <0.46 [facility] Comment on above: Order Comment: Speci men Type: BLOOD SPECIMEN Ordering Facility: [facility] Address: [address] [place] [address] Performed By: #### 5 7021-8 #### [facility] CLIA [id number] [address] [place] [address] Eosinophils/100 WBC (Bld) 0.7 % Normal [facility] Comment on above: Order Comment: Speci men Type: BLOOD SPECIMEN Ordering Facility: [facility] Address: [address] [place] [address] Performed By: #### 5 7021-8 #### [facility] CLIA [id number] [address] [place] [address] Erythrocyte distribution width (RBC) [Ratio] 14.0 % Normal 11.5-15.0 [facility] Comment on above: Order Comment: Speci men Type: BLOOD SPECIMEN Ordering Facility: [facility] Address: [address] [place] [address] Performed By: #### 5 7021-8 #### [facility] CLIA [id number] [address] [place] [address] Hematocrit (Bld) [Volume fraction] 43.5 % Normal 39.0-51.0 [facility] Comment on above: Order Comment: Speci men Type: BLOOD SPECIMEN Ordering Facility: [facility] Address: [address] [place] [address] Performed By: #### 5 7021-8 #### [facility] CLIA [id number] [address] [place] [address] Hemoglobin (Bld) [Mass/Vol] 14.5 g/dL Normal 13.0-17.0 [facility] Comment on above: Order Comment: Speci men Type: BLOOD SPECIMEN Ordering Facility: [facility] Address: [address] [place] [address] Performed By: #### 5 7021-8 #### [facility] CLIA [id number] [address] [place] [address] Immature granulocytes (Bld) [#/Vol] 0.03 10*3/uL Normal <0.10 [facility] Comment on above: Order Comment: Speci men Type: BLOOD SPECIMEN Ordering Facility: [facility] Address: [address] [place] [address] Performed By: #### 5 7021-8 #### [facility] CLIA [id number] [address] [place] [address] Immature granulocytes/100 WBC (Bld) 0.3 % Normal [facility] Comment on above: Order Comment: Speci men Type: BLOOD SPECIMEN Ordering Facility: [facility] Address: [address] [place] [address] Performed By: #### 5 7021-8 #### [facility] CLIA [id number] [address] [place] [address] Lymphocytes (Bld) [#/Vol] 2.00 10*3/uL Normal 1.00-4.00 [facility] Comment on above: Order Comment: Speci men Type: BLOOD SPECIMEN Ordering Facility: [facility] Address: [address] [place] [address] Performed By: #### 5 7021-8 #### [facility] CLIA [id number] [address] [place] [address] Lymphocytes/100 WBC (Bld) 21.9 % Normal [facility] Comment on above: Order Comment: Speci men Type: BLOOD SPECIMEN Ordering Facility: [facility] Address: [address] [place] [address] Performed By: #### 5 7021-8 #### [facility] CLIA [id number] [address] [place] [address] MCH (RBC) [Entitic mass] 31.3 pg Normal 26.0-34.0 [facility] Comment on above: Order Comment: Speci men Type: BLOOD SPECIMEN Ordering Facility: [facility] Address: [address] [address] Performed By: #### 5 7021-8 #### [facility] CLIA [id number] [address] [place] [address] MCHC (RBC) [Mass/Vol] 33.3 g/dL Normal 30.5-36.0 [facility] Comment on above: Order Comment: Speci men Type: BLOOD SPECIMEN Ordering Facility: [facility] Address: [address] [address] Performed By: #### 5 7021-8 #### [facility] CLIA [id number] [address] [place] [address] MCV (RBC) [Entitic vol] 93.8 fL Normal 80.0-100.0 [facility] Comment on above: Order Comment: Speci men Type: BLOOD SPECIMEN Ordering Facility: [facility] Address: [address] [place] [address] Performed By: #### 5 7021-8 #### [facility] CLIA [id number] [address] [place] [address] Monocytes (Bld) [#/Vol] 0.53 10*3/uL Normal <0.87 [facility] Comment on above: Order Comment: Speci men Type: BLOOD SPECIMEN Ordering Facility: [facility] Address: [address] [place] [address] Performed By: #### 5 7021-8 #### [facility] CLIA [id number] [address] [place] [address] Monocytes/100 WBC (Bld) 5.8 % Normal [facility] Comment on above: Order Comment: Speci men Type: BLOOD SPECIMEN Ordering Facility: [facility] Address: [address] [place] [address] Performed By: #### 5 7021-8 #### [facility] CLIA [id number] [address] [place] [address] Neutrophils (Bld) [#/Vol] 6.47 10*3/uL Normal 1.45-7.50 [facility] Comment on above: Order Comment: Speci men Type: BLOOD SPECIMEN Ordering Facility: [facility] Address: [address] [place] [address] Performed By: #### 5 7021-8 #### [facility] CLIA [id number] [address] [place] [address] Neutrophils/100 WBC (Bld) 71.0 % Normal [facility] Comment on above: Order Comment: Speci men Type: BLOOD SPECIMEN Ordering Facility: [facility] Address: [address] [place] [address] Performed By: #### 5 7021-8 #### [facility] CLIA [id number] [address] [place] [address]352 Nucleated RBC (Bld) [#/Vol] 10*3/uL Normal <0.01 [facility] Comment on above: Order Comment: Speci men Type: BLOOD SPECIMEN Ordering [facility]: [facility] Address: [address] [place] [address] Performed By: #### 5 7021-8 #### [facility] CLIA [id number] [address] [place] [address] Nucleated RBC/100 WBC (Bld) [Ratio] 0.0 /100 WBC Normal [facility] Comment on above: Order Comment: Speci men Type: BLOOD SPECIMEN Ordering [facility]: [facility] Address: [address] [place] [address] Performed By: #### 5 7021-8 #### [facility] CLIA [id number] [address] [place] [address] Platelet mean volume (Bld) [Entitic vol] 10.8 fL Normal 9.0-12.7 [facility] Comment on above: Order Comment: Speci men Type: BLOOD SPECIMEN Ordering [facility]: [facility] Address: [address] [place] [address] Performed By: #### 5 7021-8 #### [facility] CLIA [id number] [address] [place] [address] Platelets (Bld) [#/Vol] 253 10*3/uL Normal 150-400 [facility] Comment on above: Order Comment: Speci men Type: BLOOD SPECIMEN Ordering [facility]: [facility] Address: [address] [place] [address] Performed By: #### 5 7021-8 #### [facility] CLIA [id number] [address] [place] [address] RBC (Bld) [#/Vol] 4.64 10*6/uL Normal 4.20-6.00 [facility] Comment on above: Order Comment: Speci men Type: BLOOD SPECIMEN Ordering [facility]: [facility] Address: [address] [place] [address] Performed By: #### 5 7021-8 #### [facility] CLIA [id number] [address] [place] [address] WBC (Bld) [#/Vol] 9.12 10*3/uL Normal 3.70-11.00 [facility] Comment on above: Order Comment: Speci men Type: BLOOD SPECIMEN Ordering Facility: [facility] Address: [place] [address] Performed By: #### 5 7021-8 #### [facility] CLIA [id number] [address] [place] [address] CHEST W IVCONon 3 CT CHEST W IVCON * * *Final Report* * * DATE OF EXAM: Oct 27 2022 11:44AM [facility] 0539 - CT CHEST W IVCON / PROCEDURE REASON: Lung nodules * * * * Physician Interpretation * * * * RESULT: EXAMINATION: CHEST CT WITH CONTRAST CLINICAL HISTORY: Lung nodules. Technique: Spiral CT acquisition of the chest from the thoracic inlet to the upper abdomen following IV contrast. MQ: [id number]_6 Contrast: 100 mL Omnipaque [address] Radiation dose: Integrated Dose-length product (DLP) for this visit = 899 mGy*cm CT Dose Reduction Employed: Automated exposure control (AEC) Comparison: CT performed 10/06/2021 RESULT: Limitations: None. Lines, tubes, and devices: None. Lung parenchyma and airways: There is mild centrilobular emphysema. No lobar consolidation is visualized. There is a stable 2 mm nodule in the left upper lobe (4:36). A stable 7 mm opacity in the left upper lobe is also stable (4:65). No new or enlarging nodules are noted. The central airways are widely patent. Pleural space: No pleural effusion. No pleural thickening. Lower neck, lymph nodes, and mediastinum: The imaged thyroid gland is normal. No lymphadenopathy in the supraclavicular, axillary, mediastinal, or hilar regions. Heart, pericardium, and thoracic vessels: The thoracic aorta and main pulmonary artery are normal in caliber. The cardiac chambers are normal in size. Coronary artery atherosclerotic calcification is noted. No pericardial effusion or thickening. Bones and soft tissues: Degenerative changes are noted in the thoracic spine. No destructive osseous lesions are seen. Superficial soft tissues are unremarkable. Upper abdomen: No abnormality in the imaged upper abdomen. Case Worker (topogram) images: No additional findings. IMPRESSION: Stable CT of the chest. Unchanged appearance of left-sided nodular opacities. No new or enlarging nodules are visualized. Transcribe Date/Time: Oct 30 2022 2:17P Dictated by: EFRA PABLO MD This examination was interpreted and the report reviewed and electronically signed by: EFRA PABLO MD on Oct 30 2022 2:37PM EST Thank you for allowing us to participate in the care of your patient. Should there be any questions regarding this interpretation, please call [phone]. If you are unable to reach us at the number above, please feel free to contact [facility] at [phone]. [id number] Normal [facility] CT NECK SOFT TISSUE W IVCONo n 10-27-2022 CT NECK SOFT TISSUE W IVCON * * *Final Report* * * DATE OF EXAM: Oct 27 2022 11:28AM [facility] 0013 - CT NECK SOFT TISSUE W IVCON / PROCEDURE REASON: Malignant neoplasm of head, face and neck (HCC) * * * * Physician Interpretation * * * * RESULT: CT NECK SOFT TISSUE W IVCON History: Malignant neoplasm of head, face and neck (HCC) Malignant neoplasm of head, face and neck (HCC) Per EMR: 60 year old?man who?underwent?selective right neck dissection (II-V) and bilateral base of tongue/linguial tonsillar excision on 01/30/[address] 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 Only high-risk feature is the node being greater than 3 cm.?He was advised at Tumor Board to undergo Radiation only. Active Smoking? Comparison: 10/06/2021 Technique: A series of contiguous helical scans were performed from the skull base to the aortic arch with intravenous contrast. Contrast: Omnipaque 300. Contrast Dose: 100 cc Route of Administration: IV CT Radiation dose: Integrated Dose-length product (DLP) for this visit = 899 mGy*cm. CT Dose Reduction Employed: Automated exposure control (AEC) RESULT: Postoperative change: Left-sided lens replacement. Suprahyoid Neck: Nasopharynx and oropharynx appear normal. Parapharyngeal tissue planes are preserved. Oral cavity and floor of mouth appear normal within constraints of artifact from dental amalgam. Parotid and submandibular spaces are normal. Auto Phone Installer spaces appear normal. Infrahyoid Neck: Hypopharynx, larynx, and imaged infraglottic trachea appear normal. Imaged upper esophagus is unremarkable. Thyroid gland is homogeneous without evidence of discrete nodule. Lymph Nodes: No cervical lymphadenopathy by size criteria. Carotid Space: No masses. Patent extracranial carotid systems and internal jugular veins bilaterally. Orbits, Face and Skull Base: Orbital soft tissue planes are preserved. Lobular mucosal thickening right maxillary sinus. Mastoid air cells and middle ear cavities are clear. No evidence of an osteolytic or osteoblastic process in the skull base. Imaged intracranial contents: No abnormal intracranial enhancement, mass effect, or hydrocephalus. Cervical spine and remaining osseous structures: No discrete osteolytic or osteoblastic process. Moderate spondylotic changes in the visualized spine. Lung apices: Imaged lung apices are clear of focal consolidation or mass. IMPRESSION: Primary NIRADS Category: 1. Expected post-treatment changes in the neck without evidence of recurrent disease in the primary site. Neck NIRADS Category: 1. No evidence of abnormal lymph nodes. [email or web address] Transcribe Date/Time: Oct 27 2022 11:56A Dictated by: KATJA HAMPTON MD This examination was interpreted and the report reviewed and electronically signed by: KATJA HAMPTON MD on Oct 27 2022 12:14PM EST Thank you for allowing us to participate in the care of your patient. Should there be any questions regarding this interpretation, please call [phone]. If you are unable to reach us at the number above, please feel free to contact [facility] at [phone]. [id number] Normal [facility] metabolic 2000 panelon 10-27-2022 Albumin [Mass/Vol] 4.3 g/dL Normal 3.9-4.9 [facility] Comment on above: Order Comment: Speci men Type: BLOOD SPECIMEN [facility]ing Facility: [facility] Address: [address] [address] Performed By: #### 2 4323-8 #### [facility] CLIA [id number] [address] [place] [address] ALP [Catalytic activity/Vol] 89 U/L Normal 38-113 [facility] Comment on above: Order Comment: Speci men Type: BLOOD SPECIMEN [facility]ing [facility] Address: [address] [address] Performed By: #### 2 4323-8 #### [facility] CLIA [id number] [address] [place] [address] ALT [Catalytic activity/Vol] 7 U/L Low 10-54 [facility] Comment on above: Order Comment: Speci men Type: BLOOD SPECIMEN [facility]ing [facility] Address: [address] [address] Performed By: #### 2 4323-8 #### [facility] CLIA [id number] [address] [place] [address]164 Anion gap [Moles/Vol] 10 mmol/L Normal 9-18 [facility] Comment on above: Order Comment: Speci men Type: BLOOD SPECIMEN [facility] Address: [address] [address] Performed By: #### 2 4323-8 #### [facility] CLIA [id number] [address] [place] [address] AST [Catalytic activity/Vol] 8 U/L Low 14-40 [facility] Comment on above: Order Comment: Speci men Type: BLOOD SPECIMEN [facility] Address: [address] [address] Performed By: #### 2 4323-8 #### [facility] CLIA [id number] [address] [place] [address] Bilirubin [Mass/Vol] 0.3 mg/dL Normal 0.2-1.3 [facility] Comment on above: Order Comment: Speci men Type: BLOOD SPECIMEN [facility] Address: [address] [address] Performed By: #### 2 4323-8 #### [facility] CLIA [id number] [address] [place] [address] Calcium [Mass/Vol] 9.6 mg/dL Normal 8.5-10.2 [facility] Comment on above: Order Comment: Speci men Type: BLOOD SPECIMEN [facility] Address: [address] [address] Performed By: #### 2 4323-8 #### [facility] CLIA [id number] [address] [place] [address] Chloride [Moles/Vol] 104 mmol/L Normal 97-105 [facility] Comment on above: Order Comment: Speci men Type: BLOOD SPECIMEN [facility] Address: [address] [address] Performed By: #### 2 4323-8 #### [facility] CLIA [id number] [address] [place] [address] CO2 [Moles/Vol] 27 mmol/L Normal 22-30 [facility] Comment on above: Order Comment: Speci men Type: BLOOD SPECIMEN [facility] Address: [address] [address] Performed By: #### 2 4323-8 #### [facility] CLIA [id number] [address] [place] [address]39 Creatinine [Mass/Vol] 0.93 mg/dL Normal 0.73-1.22 [facility] Comment on above: Order Comment: Speci men Type: BLOOD SPECIMEN [facility] Address: [address] [address] Performed By: #### 2 4323-8 #### [facility] CLIA [id number] [address] [place] [address] ESTIMATED GLOMERULAR FILTRATION RATE 95 mL/min/1.73m??? Normal >=60 [facility] Comment on above: Order Comment: Trevor jordan Type: BLOOD SPECIMEN [facility] Address: [address] [place] [address] Result Comment: Charisse mated Glomerular Filtration Rate (eGFR) is calculated using the 2020 CKD-EPI creatinine equation. This equation utilizes serum creatinine, sex, and age as parameters. The creatinine assay has traceable calibration to isotope dilution-mass spectrometry. Refer to KDIGO guidelines for clinical interpretation. In patients with unstable renal function, e.g. those with acute kidney injury, the eGFR may not accurately reflect actual GFR. Performed By: #### 2 4323-8 #### [facility] CLIA [id number] [address] [place] [address] Glucose [Mass/Vol] 98 mg/dL Normal 74-99 [facility] Comment on above: Order Comment: Speci nikki Type: BLOOD SPECIMEN [facility] Address: [address] [place] [address] Result Comment: The [place] [employer] (ADA) provides guidance for cutoff values for fasting glucose and random glucose. The ADA defines fasting as no caloric intake for at least 8 hours. Fasting plasma glucose results between 100 to 125 mg/dL indicate increased risk for diabetes (prediabetes). Fasting plasma glucose results greater than or equal to 126 mg/dL meet the criteria for diagnosis of diabetes. In the absence of unequivocal hyperglycemia, results should be confirmed by repeat testing. In a patient with classic symptoms of hyperglycemia or hyperglycemic crisis, random plasma glucose results greater than or equal to 200 mg/dL meet the criteria for diagnosis of diabetes. Reference: Standards of Medical Care in Diabetes 2016, [place] [employer]. Diabetes Care. 2016.39(Suppl 1). Performed By: #### 2 4323-8 #### [facility] CLIA [id number] [address] [place] [address]698 Potassium [Moles/Vol] 4.5 mmol/L Normal 3.7-5.1 [facility] Comment on above: Order Comment: Speci men Type: BLOOD SPECIMEN [facility] Address: [address] [address] Performed By: #### 2 4323-8 #### [facility] CLIA [id number] [address] [place] [address] Protein [Mass/Vol] 6.6 g/dL Normal 6.3-8.0 [facility] Comment on above: Order Comment: Speci men Type: BLOOD SPECIMEN [facility] Address: [address] [address] Performed By: #### 2 4323-8 #### [facility] CLIA [id number] [address] [place] [address] Sodium [Moles/Vol] 141 mmol/L Normal 136-144 [facility] Comment on above: Order Comment: Speci men Type: BLOOD SPECIMEN [facility] Address: [address] [address] Performed By: #### 2 4323-8 #### [facility] CLIA [id number] [address] [place] [address] Urea nitrogen [Mass/Vol] 12 mg/dL Normal 9-24 [facility] Comment on above: Order Comment: Speci men Type: BLOOD SPECIMEN [facility] Address: [address] [address] Performed By: #### 2 4323-8 #### [facility] CLIA [id number] [address] [place] [address]60 Alanine aminotransferase [En zymatic activity/volume] in Serum or PlasmaOrdered By: Griselda Krause on 10-24-2022 ALT [Catalytic activity/Vol] 7 U/L 7 [facility] Albumin [Mass/volume] in Ser um or Plasma by Bromocresol green (BCG) dye binding methoOrdered By: Grisleda Krause on 10-24-2022 Albumin BCG dye [Mass/Vol] 4.2 g/dL 3.5-5.7 [facility] Alkaline phosphatase [Enzyma tic activity/volume] in Serum or PlasmaOrdered By: Griselda Krause on 10-24-2022 ALP [Catalytic activity/Vol] 76 U/L 34-104 [facility] Aspartate aminotransferase [ Enzymatic activity/volume] in Serum or PlasmaOrdered By: Griselda Krause on 10-24-2022 AST [Catalytic activity/Vol] 10 U/L 13-39 [facility] Basophils Auto (Bld) [#/Vol] Ordered By: Griselda Krause on 10-24-2022 Basophils (Bld) [#/Vol] 0.0 10*3/uL 0.0-0.2 [facility] Basophils/100 WBC Auto (Bld) Ordered By: Griselda Krause on 10-24-2022 Basophils/100 WBC (Bld) 0.9 % . [facility] Bilirubin.total [Mass/volume ] in Serum or PlasmaOrdered By: Griselda Krause on 10-24-2022 Bilirubin [Mass/Vol] 0.4 mg/dL 0.3-1.0 [facility] Calcium [Mass/volume] in Ser um or PlasmaOrdered By: Griselda Krause on 10-24-2022 Calcium [Mass/Vol] 9.1 mg/dL 8.6-10.3 [facility] Carbon dioxide, total [Moles /volume] in Serum or PlasmaOrdered By: Griselda Krause on 10-24-2022 CO2 [Moles/Vol] 28.3 mmol/L 21.0-31.0 [facility] Chloride [Moles/volume] in S rica or PlasmaOrdered By: Griselda Krause on 10-24-2022 Chloride [Moles/Vol] 105 mmol/L 98-107 [facility] Cholesterol [Mass/volume] in Serum or PlasmaOrdered By: Griselda Krause on 10-24-2022 Cholesterol [Mass/Vol] 240 mg/dL 140-200 [facility] Comment on above: Chol less than 200 m g/dl low riskChol 201-239 mg/dl borderline riskChol 240 mg/dl and greater high risk Cholesterol in LDL Calc [Mas s/Vol]Ordered By: Griselda Krause on 10-24-2022 Cholesterol in LDL [Mass/Vol] 169 mg/dL 0-100 [facility] Comment on above: LDL ATP III CLASSIFI CATIONLDL less than 100 mg/dL OptimalLDL 100-129 mg/dL Near or above optimalLDL 130-159 mg/dL Borderline highLDL 160-189 mg/dL HighLDL greater than 189 mg/dL Very high Cholesterol in VLDL Calc [Ma ss/Vol]Ordered By: Griselda Krause on 10-24-2022 Cholesterol in VLDL [Mass/Vol] 35 mg/dL [facility] Complete Blood Count Auto Di ffon 10-24-2022 Basophils (Bld) [#/Vol] 0.0 10*3/uL Normal 0.0-0.2 [facility] Comment on above: Order Comment: Reaso n for Exam Hyperlipidemia Result Comment: PERF ORMED BY: [place] [address] PATHOLOGIST RETORT OR CONDENSER PRESS OPERATOR CARMEN LYNCH M.D. Performed By: #### C BC, CMP, LIPID, TSH3, PSAS #### [facility] [address] Basophils/100 WBC (Bld) 0.9 % Normal . [facility] Comment on above: Order Comment: Reaso n for Exam Hyperlipidemia Performed By: #### C BC, CMP, LIPID, TSH3, PSAS #### [facility] [address] [place] [address] [place] Eosinophils (Bld) [#/Vol] 0.1 10*3/uL Normal 0.0-0.45 [facility] Comment on above: Order Comment: Reaso n for Exam Hyperlipidemia Performed By: #### C BC, CMP, LIPID, TSH3, PSAS #### [facility] [address] [place] [address] [place] Eosinophils/100 WBC (Bld) 2.0 % Normal . [facility] Comment on above: Order Comment: Reaso n for Exam Hyperlipidemia Performed By: #### C BC, CMP, LIPID, TSH3, PSAS #### [facility] [address] [place] [address] [place] Erythrocyte distribution width (RBC) [Ratio] 14.7 % Normal 12.0-14.8 [facility] Comment on above: Order Comment: Reaso n for Exam Hyperlipidemia Performed By: #### C BC, CMP, LIPID, TSH3, PSAS #### [address] Hematocrit (Bld) [Volume fraction] 43.4 % Normal 38.8-50.0 [facility] Comment on above: Order Comment: Reaso n for Exam Hyperlipidemia Performed By: #### C BC, CMP, LIPID, TSH3, PSAS #### [address] Hemoglobin (Bld) [Mass/Vol] 14.5 g/dL Normal 13.0-17.0 [facility] Comment on above: Order Comment: Reaso n for Exam Hyperlipidemia Performed By: #### C BC, CMP, LIPID, TSH3, PSAS #### [address] Lymphocytes (Bld) [#/Vol] 2.0 10*3/uL Normal 1.00-4.8 [facility] Comment on above: Order Comment: Reaso n for Exam Hyperlipidemia Performed By: #### C BC, CMP, LIPID, TSH3, PSAS #### [address] Lymphocytes/100 WBC (Bld) 39.8 % Normal . [facility] Comment on above: Order Comment: Reaso n for Exam Hyperlipidemia Performed By: #### C BC, CMP, LIPID, TSH3, PSAS #### [address] MCH (RBC) [Entitic mass] 31.5 pg Normal 27.5-35.2 [facility] Comment on above: Order Comment: Reaso n for Exam Hyperlipidemia Performed By: #### C BC, CMP, LIPID, TSH3, PSAS #### [address] MCV (RBC) [Entitic vol] 94.0 fL Normal 83.5-101 [facility] Comment on above: Order Comment: Reaso n for Exam Hyperlipidemia Performed By: #### C BC, CMP, LIPID, TSH3, PSAS #### [facility] [address] [place] [address] Mean Corpuscular HGB Conc 33.5 g/dL Normal 32.5-35.6 [facility] Comment on above: Order Comment: Reaso n for Exam Hyperlipidemia Performed By: #### C BC, CMP, LIPID, TSH3, PSAS #### [place] [address] [place] Monocytes (Bld) [#/Vol] 0.3 10*3/uL Normal 0.0-0.8 [facility] Comment on above: Order Comment: Reaso n for Exam Hyperlipidemia Performed By: #### C BC, CMP, LIPID, TSH3, PSAS #### [address] Monocytes/100 WBC (Bld) 5.4 % Normal . [facility] Comment on above: Order Comment: Reaso n for Exam Hyperlipidemia Performed By: #### C BC, CMP, LIPID, TSH3, PSAS #### [place] [address] [place] Neutrophils (Bld) [#/Vol] 2.6 10*3/uL Normal 1.8-7.7 [facility] Comment on above: Order Comment: Reaso n for Exam Hyperlipidemia Performed By: #### C BC, CMP, LIPID, TSH3, PSAS #### [place] [address] [place] Neutrophils/100 WBC (Bld) 51.9 % Normal . [facility] Comment on above: Order Comment: Reaso n for Exam Hyperlipidemia Performed By: #### C BC, CMP, LIPID, TSH3, PSAS #### [place] [address] [place] NRBC% 0.1 /100{WBC} Normal 0-0.5 [facility] Comment on above: Order Comment: Reaso n for Exam Hyperlipidemia Performed By: #### C BC, CMP, LIPID, TSH3, PSAS #### [facility] [address] Platelet mean volume (Bld) [Entitic vol] 9.6 fL Normal 6.6-10.1 [facility] Comment on above: Order Comment: Reaso n for Exam Hyperlipidemia Performed By: #### C BC, CMP, LIPID, TSH3, PSAS #### [facility] [address] Platelets (Bld) [#/Vol] 247 10*3/uL Normal 150-450 [facility] Comment on above: Order Comment: Reaso n for Exam Hyperlipidemia Performed By: #### C BC, CMP, LIPID, TSH3, PSAS #### [facility] [address] RBC (Bld) [#/Vol] 4.61 10*6/uL Normal 3.90-5.60 [facility] Comment on above: Order Comment: Reaso n for Exam Hyperlipidemia Performed By: #### C BC, CMP, LIPID, TSH3, PSAS #### [facility] [address] WBC (Bld) [#/Vol] 5.0 10*3/uL Normal 4.1-10.5 [facility] Comment on above: Order Comment: Reaso n for Exam Hyperlipidemia Performed By: #### C BC, CMP, LIPID, TSH3, PSAS #### [facility] [address] Comprehensive Metabolic Pane chanel 10-24-2022 Albumin [Mass/Vol] 4.2 g/dL Normal 3.5-5.7 [facility] Comment on above: Order Comment: Reaso n for Exam Hyperlipidemia Performed By: #### C BC, CMP, LIPID, TSH3, PSAS ####[facility] Albumin/Globulin [Mass ratio] 2.0 {ratio} Normal [facility] Comment on above: Order Comment: Reaso n for Exam Hyperlipidemia Performed By: #### C BC, CMP, LIPID, TSH3, PSAS ####[facility] [place] [address] [facility] ALP [Catalytic activity/Vol] 76 U/L Normal 34-104 [facility] Comment on above: Order Comment: Reaso n for Exam Hyperlipidemia Performed By: #### C BC, CMP, LIPID, TSH3, PSAS ####[facility] [place] [address] [facility] ALT [Catalytic activity/Vol] 7 U/L Normal 7-52 [facility] Comment on above: Order Comment: Reaso n for Exam Hyperlipidemia Performed By: #### C BC, CMP, LIPID, TSH3, PSAS ####[address] [place] [address] [facility] Anion gap [Moles/Vol] 11.7 mmol/L Normal 6.0-15.0 [facility] Comment on above: Order Comment: Reaso n for Exam Hyperlipidemia Performed By: #### C BC, CMP, LIPID, TSH3, PSAS ####[address] [place] [address] [facility] AST [Catalytic activity/Vol] 10 U/L Low 13-39 [facility] Comment on above: Order Comment: Reaso n for Exam Hyperlipidemia Performed By: #### C BC, CMP, LIPID, TSH3, PSAS ####[address] [place] [address] [facility] Bilirubin [Mass/Vol] 0.4 mg/dL Normal 0.3-1.0 [facility] Comment on above: Order Comment: Reaso n for Exam Hyperlipidemia Performed By: #### C BC, CMP, LIPID, TSH3, PSAS ####[facility] [place] [address] [facility] Calcium [Mass/Vol] 9.1 mg/dL Normal 8.6-10.3 [facility] Comment on above: Order Comment: Reaso n for Exam Hyperlipidemia Performed By: #### C BC, CMP, LIPID, TSH3, PSAS ####[address] [place] [address] [facility] Chloride [Moles/Vol] 105 mmol/L Normal 98-107 [facility] Comment on above: Order Comment: Reaso n for Exam Hyperlipidemia Performed By: #### C BC, CMP, LIPID, TSH3, PSAS ####[address] [place] [id number] [facility] CO2 [Moles/Vol] 28.3 mmol/L Normal 21.0-31.0 [facility] Comment on above: Order Comment: Reaso n for Exam Hyperlipidemia Performed By: #### C BC, CMP, LIPID, TSH3, PSAS ####[id number] [facility] Creatinine [Mass/Vol] 0.88 mg/dL Normal 0.70-1.30 [facility] Comment on above: Order Comment: Reaso n for Exam Hyperlipidemia Performed By: #### C BC, CMP, LIPID, TSH3, PSAS ####[address] GFR/1.73 sq M.predicted MDRD (S/P/Bld) [Vol rate/Area] mL/min/{1.73_m2} [facility] Comment on above: Order Comment: Reaso n for Exam Hyperlipidemia Performed By: #### C BC, CMP, LIPID, TSH3, PSAS ####[id number] [facility] Globulin (S) [Mass/Vol] 2.1 g/dL [facility] Comment on above: Order Comment: Reaso n for Exam Hyperlipidemia Performed By: #### C BC, CMP, LIPID, TSH3, PSAS ####[id number] [facility] Glucose [Mass/Vol] 82 mg/dL Normal 70-100 [facility] Comment on above: Order Comment: Reaso n for Exam Hyperlipidemia Result Comment: [facility] Glucose Reference Range is dependent on time and content of last meal. Glucose of more than 200 mg/dL in a nonstressed, ambulatory subject supports the diagnosis of Diabetes Mellitus. ADA recommended reference range Performed By: #### C BC, CMP, LIPID, TSH3, PSAS ####[address] [place] [address] [place] Potassium [Moles/Vol] 4.0 mmol/L Normal 3.5-5.1 [facility] Comment on above: Order Comment: Reaso n for Exam Hyperlipidemia Performed By: #### C BC, CMP, LIPID, TSH3, PSAS ####[id number] [facility] Protein [Mass/Vol] 6.3 g/dL Low 6.4-8.9 [facility] Comment on above: Order Comment: Reaso n for Exam Hyperlipidemia Performed By: #### C BC, CMP, LIPID, TSH3, PSAS ####[id number] [facility] Sodium [Moles/Vol] 141 mmol/L Normal 136-145 [facility] Comment on above: Order Comment: Reaso n for Exam Hyperlipidemia Performed By: #### C BC, CMP, LIPID, TSH3, PSAS ####[id number] [facility] Urea nitrogen [Mass/Vol] 15 mg/dL Normal 7-25 [facility] Comment on above: Order Comment: Reaso n for Exam Hyperlipidemia Performed By: #### C BC, CMP, LIPID, TSH3, PSAS ####[id number] [facility] Creatinine [Mass/volume] in Serum or PlasmaOrdered By: Griselda Krause on 10-24-2022 Creatinine [Mass/Vol] 0.88 mg/dL 0.70-1.30 [facility] Eosinophils Auto (Bld) [#/Vo l]Ordered By: Griselda Krause on 10-24-2022 Eosinophils (Bld) [#/Vol] 0.1 10*3/uL 0.0-0.45 [facility] Eosinophils/100 WBC Auto (Bl d)Ordered By: Griselda Krause on 10-24-2022 Eosinophils/100 WBC (Bld) 2.0 % . [facility] Erythrocyte distribution wid th Auto (RBC) [Ratio]Ordered By: Griselda Krause on 10-24-2022 Erythrocyte distribution width (RBC) [Ratio] 14.7 % 12.0-14.8 [facility] Globulin Calc (S) [Mass/Vol] Ordered By: Griselda Krause on 10-24-2022 Globulin (S) [Mass/Vol] 2.1 g/dL [facility] Glucose [Mass/volume] in Ser um or PlasmaOrdered By: Griselda Krause on 10-24-2022 Glucose [Mass/Vol] 82 mg/dL 70-100 [facility] Comment on above: ADA recommended refe rence rangeRandom Glucose Reference Range is dependent on time and content of last meal. Glucose of more than 200 mg/dL in a nonstressed, ambulatory subject supports the diagnosis of Diabetes Mellitus. Hematocrit Auto (Bld) [Volum e fraction]Ordered By: Griselda Krause on 10-24-2022 Hematocrit (Bld) [Volume fraction] 43.4 % 38.8-50.0 [facility] Hemoglobin [Mass/volume] in BloodOrdered By: Griselda Krause on 10-24-2022 Hemoglobin (Bld) [Mass/Vol] 14.5 g/dL 13.0-17.0 [facility] Leukocytes [#/volume] correc mone for nucleated erythrocytes in Blood by Automated counOrdered By: Griselda Krause on 10-24-2022 WBC corrected for nucl RBC Auto (Bld) [#/Vol] 5.0 10*3/uL 4.1-10.5 [facility] Lipid Panelon 10-24-2022 Cholesterol [Mass/Vol] 240 mg/dL High 140-200 [facility] Comment on above: Order Comment: Reaso n for Exam Hyperlipidemia Result Comment: Chol less than 200 mg/dl low risk Chol 201-239 mg/dl borderline risk Chol 240 mg/dl and greater high risk Performed By: #### C BC, CMP, LIPID, TSH3, PSAS ####[facility] [id number] [place] [address] [facility] Cholesterol in HDL [Mass/Vol] 36 mg/dL Normal 29-71 [facility] [facility] Comment on above: Order Comment: Reaso n for Exam Hyperlipidemia Result Comment: HDL CHOL ATP-III CLASSIFICATION Cardiovascular Risk HDL > or equal to 60 mg/dL LOW HDL < 40 mg/dL HIGH Performed By: #### C BC, CMP, LIPID, TSH3, PSAS ####[facility] [place] Cholesterol.total/Chol esterol in HDL [Mass ratio] 6.7 {ratio} Normal <5.0 [facility] Comment on above: Order Comment: Reaso n for Exam Hyperlipidemia Performed By: #### C BC, CMP, LIPID, TSH3, PSAS ####[facility] [place] LDL Cholesterol,Calculated 169 mg/dL High 0-100 [facility] Comment on above: Order Comment: Reaso n for Exam Hyperlipidemia Result Comment: LDL ATP III CLASSIFICATION LDL less than 100 mg/dL Optimal LDL 100-129 mg/dL Near or above optimal LDL 130-159 mg/dL Borderline high LDL 160-189 mg/dL High LDL greater than 189 mg/dL Very high Performed By: #### C BC, CMP, LIPID, TSH3, PSAS ####[place] [address] [address] Triglyceride w/Reflex 175 mg/dL High 0-149 [facility] Comment on above: Order Comment: Reaso n for Exam Hyperlipidemia Result Comment: TRIG ATP III CLASSIFICATION TRIG less than 150 mg/dL Normal TRIG 150-199 mg/dL Borderline high TRIG 200-500 mg/dL High TRIG greater than 500 mg/dL Very high Standard traceable to the Center for Disease Conrtrol and Prevention (CDC) test method. Performed By: #### C BC, CMP, LIPID, TSH3, PSAS ####[place] [address] [address] VLDL CHOLESTEROL 35 mg/dL Normal [facility] Comment on above: Order Comment: Reaso n for Exam Hyperlipidemia Performed By: #### C BC, CMP, LIPID, TSH3, PSAS ####[place] [address] [address] Lymphocytes Auto (Bld) [#/Vo l]Ordered By: Griselda Krause on 10-24-2022 Lymphocytes (Bld) [#/Vol] 2.0 10*3/uL 1.00-4.8 [facility] Lymphocytes/100 WBC Auto (Bl d)Ordered By: Griselda Krause on 10-24-2022 Lymphocytes/100 WBC (Bld) 39.8 % . [facility] MCH Auto (RBC) [Entitic mass ]Ordered By: Griselda Krause on 10-24-2022 MCH (RBC) [Entitic mass] 31.5 pg 27.5-35.2 [facility] MCHC Auto (RBC) [Mass/Vol]Or dered By: Griselda Krause on 10-24-2022 MCHC (RBC) [Mass/Vol] 33.5 g/dL 32.5-35.6 [facility] MCV Auto (RBC) [Entitic vol] Ordered By: Griselda Krause on 10-24-2022 MCV (RBC) [Entitic vol] 94.0 fL 83.5-101 [facility] Monocytes Auto (Bld) [#/Vol] Ordered By: Griselda Krause on 10-24-2022 Monocytes (Bld) [#/Vol] 0.3 10*3/uL 0.0-0.8 [facility] Monocytes/100 WBC Auto (Bld) Ordered By: Griselda Krause on 10-24-2022 Monocytes/100 WBC (Bld) 5.4 % . [facility] Neutrophils Auto (Bld) [#/Vo l]Ordered By: Griselda Krause on 10-24-2022 Neutrophils (Bld) [#/Vol] 2.6 10*3/uL 1.8-7.7 [facility] Neutrophils/100 WBC Auto (Bl d)Ordered By: Griselda Krause on 10-24-2022 Neutrophils/100 WBC (Bld) 51.9 % . [facility] No Panel InformationOrdered By: Griselda Krause on 10-24-2022 Estimated GFR (CKD-EPI) > 60.0 mL/Min [facility] Creatinine Clearance (Chem N/A [facility] Nucleated erythrocytes [Pres ence] in Blood by Automated countOrdered By: Griselda Krause on 10-24-2022 Nucleated RBC Auto Ql (Bld) 0.1 /100{WBC} 0-0.5 [facility] PSA Screen (Yearly Only)on 0 10-24-2022 PSA Screen (Yearly Only) 0.370 ng/mL Normal 0.000-4.00 0 [facility] Comment on above: Order Comment: Reaso n for Exam Screening for prostate cancer Is patient <50 yrs? Medicare does not pay <50.: N What is the date of the last PSA Screen?: [id number] Is Medicare the insurance?: N Did you verify eligibility (Dx Time) check TestViewGp: YES TO ALL Result Comment: PERF ORMED BY: [place] [address] PATHOLOGIST RETORT OR CONDENSER PRESS OPERATOR CARMEN LYNCH M.D. Performed By: #### C BC, CMP, LIPID, TSH3, PSAS #### [address] Platelet mean volume Auto (B ld) [Entitic vol]Ordered By: Griselda Krause on 10-24-2022 Platelet mean volume (Bld) [Entitic vol] 9.6 fL 6.6-10.1 [facility] Platelets Auto (Bld) [#/Vol] Ordered By: Griselda Krause on 10-24-2022 Platelets (Bld) [#/Vol] 247 10*3/uL 150-450 [facility] Potassium [Moles/volume] in Serum or PlasmaOrdered By: Griselda Krause on 10-24-2022 Potassium [Moles/Vol] 4.0 mmol/L 3.5-5.1 [facility] Prostate specific Ag [Mass/v olume] in Serum or PlasmaOrdered By: Griselda Krause on 10-24-2022 Prostate specific Ag [Mass/Vol] 0.370 ng/mL 0.000-4.00 0 [facility] Protein [Mass/volume] in Ser um or PlasmaOrdered By: Griselda Krause on 10-24-2022 Protein [Mass/Vol] 6.3 g/dL 6.4-8.9 [facility] RBC Auto (Bld) [#/Vol]Ordere d By: Griselda Krause on 10-24-2022 RBC (Bld) [#/Vol] 4.61 10*6/uL 3.90-5.60 [facility] Serum or plasma albumin/glob ulin mass ratioOrdered By: Griselda Krause on 10-24-2022 Albumin/Globulin [Mass ratio] 2.0 {ratio} [facility] Serum or plasma anion gap de terminationOrdered By: Griselda Krause on 10-24-2022 Anion gap [Moles/Vol] 11.7 mmol/L 6.0-15.0 [facility] Serum or plasma high density lipoprotein (HDL) cholesterol measurementOrdered By: Griselda Krause on 10-24-2022 Cholesterol in HDL [Mass/Vol] 36 mg/dL 29-71 [facility] Comment on above: HDL CHOL ATP-III CLA SSIFICATION Cardiovascular RiskHDL > or equal to 60 mg/dL LOWHDL < 40 mg/dL HIGH Serum or plasma total choles terol/high density lipoprotein (HDL) cholesterol mass ratOrdered By: Griselda Krause on 10-24-2022 Cholesterol.total/Chol esterol in HDL [Mass ratio] 6.7 {ratio} <5.0 [facility] Sodium [Moles/volume] in Ser um or PlasmaOrdered By: Griselda Krause on 10-24-2022 Sodium [Moles/Vol] 141 mmol/L 136-145 [facility] Thyroid Stimulating Hormoneo n 10-24-2022 TSH Qn 1.26 m[IU]/L Normal 0.45-5.33 [facility] Comment on above: Order Comment: Reaso n for Exam Hyperlipidemia Result Comment: PERF ORMED BY: [facility] [address] [place] [id number] PATHOLOGIST RETORT OR CONDENSER PRESS OPERATOR CARMEN LYNCH M.D. Performed By: #### C BC, CMP, LIPID, TSH3, PSAS ####[facility] [place] Thyrotropin [Units/volume] i n Serum or PlasmaOrdered By: Griselda Krause on 10-24-2022 TSH Qn 1.26 m[IU]/L 0.45-5.33 [facility] Triglyceride [Mass/volume] i n Serum or PlasmaOrdered By: Griselda Krause on 10-24-2022 Triglyceride [Mass/Vol] 175 mg/dL 0-149 [facility] Comment on above: TRIG ATP III CLASSIF ICATIONTRIG less than 150 mg/dL NormalTRIG 150-199 mg/dL Borderline highTRIG 200-500 mg/dL High TRIG greater than 500 mg/dL Very highStandard traceable to the Center for Disease Conrtrol and Prevention (CDC) test method. Urea nitrogen [Mass/volume] in Serum or PlasmaOrdered By: Griselda Krause on 10-24-2022 Urea nitrogen [Mass/Vol] 15 mg/dL 7- [facility] WBC Auto (Bld) [#/Vol]Ordere d By: Griselda Krause on 10-24-2022 WBC (Bld) [#/Vol] 5.0 10*3/uL 4.1-10.5 [facility] BRIEF OP NOTon 09-28-2022 BRIEF OP NOT HNO ID: [id number] Author: Demond Cat APRN.CNP Service: Interventional Radiology Author Type: Nurse Practitioner Type: Brief Op Note Filed: 09/28/2022 3:14 PM Note Text: BRIEF OPERATIVE / PROCEDURE NOTE LOG ID: [id number] SURGERY/PROCEDURE DATE: 09/28/2022 INCISION/PROCEDURE START TIME: 1:58 PM INCISION CLOSE/PROCEDURE END TIME: 2:27 PM SURGEON(S)/PROCEDURALIST( S) AND ORIENTOR(S): Surgeon(s) and Role: * Demond Cat APRN.MICROPALEONTOLOGIST - Primary No Additional Staff SURGERY/PROCEDURE(S): LP with fluoroscopy ANESTHESIA: Local FINDINGS: attempted access at L2-L3, unable to advance needle to subarachnoid space. Next access L4-L5. Clear CSF. OP 15. CP < 9. A total of 24 cc of CSF was removed. ESTIMATED BLOOD LOSS: trace SPECIMENS: 11 mL of clear CSF COMPLICATIONS: None PRE-OP/PRE-PROCEDURE DIAGNOSIS: headache POST-OP/POST-PROCEDURE DIAGNOSIS: Same as Preop SIGNATURE: Demond Cat APRN.CNP PATIENT NAME: Jovani Melendez DATE: September 28, 2022 TIME: 3:10 PM Normal [facility] Bacteria CSF Culton 09-29-19 23 Bacteria identified Cx Nom (CSF) CULTURE, CSF: No growth 5 days GRAM STAIN: No organisms seen No Polymorphonuclear Leukocytes Few Mononuclear cells Gram stain performed on cytospun specimen. Gram stain results reviewed and confirmed by [facility] microbiology Normal [facility] Comment on above: Performed By: #### 6 06-4 #### [facility] CLIA [id number] [address] [facility] [place] [id number] [address] [place] CSF MANUAL DIFFon 09-28-2022 DIF TTL, CSF 100 cells counted Normal [facility] Comment on above: Order Comment: Speci men Type: CEREBROSPINAL FLUID Ordering Facility: [facility] Address: [address] [place] [address] Performed By: #### L [id number], 77028-6 #### [facility] CLIA [id number] [address] [place] [address] [place] LYMPH%, CSF 56 % Normal 50-90 [facility] Comment on above: Order Comment: Speci men Type: CEREBROSPINAL FLUID Ordering Facility: [facility] Address: [address] [place] [address] Performed By: #### L [id number], 39377-2 #### [facility] CLIA [id number] [address] [place] [address] [place] MACRO%, CSF 12 % High <1 [facility] Comment on above: Order Comment: Speci men Type: CEREBROSPINAL FLUID Ordering Facility: [facility] Address: [address] [address] Performed By: #### L [id number], 30820-0 #### [facility] CLIA [id number] [address] [place] [address] [place] MONO%, CSF 32 % Normal 10-50 [facility] Comment on above: Order Comment: Speci men Type: CEREBROSPINAL FLUID Ordering Facility: [facility] Address: [address] [address] Performed By: #### L [id number], 90498-3 #### [facility] CLIA [id number] [address] [place] [address] [place] Cell count panel (CSF)on Clarity (CSF) Clear Normal Clear [facility] Comment on above: Order Comment: Speci men Type: CEREBROSPINAL FLUID Ordering Facility: [facility] Address: [address] [place] [address] Performed By: #### L [id number], 97412-4 #### [facility] CLIA [id number] [address] [place] [address] Clarity (Unsp spec) Not Indicated Normal Clear [facility] Comment on above: Order Comment: Speci men Type: CEREBROSPINAL FLUID Ordering Facility: [facility] Address: [address] [place] [address] Performed By: #### L [id number], 38326-2 #### [facility] CLIA [id number] [address] [place] [address] Color (CSF) Colorless Normal Colorless [facility] Comment on above: Order Comment: Speci men Type: CEREBROSPINAL FLUID Ordering Facility: [facility] Address: [address] [place] [address] Performed By: #### L [id number], 23697-4 #### [facility] CLIA [id number] [address] [place] [address] Color (Spun CSF) Not Indicated Normal Colorless [facility] Comment on above: Order Comment: Speci men Type: CEREBROSPINAL FLUID Ordering Facility: [facility] Address: [address] [place] [address] Performed By: #### L [id number], 03512-8 #### [facility] CLIA [id number] [address] [place] [address] CSF TUBE NUMBER Tube 2 Normal [facility] Comment on above: Order Comment: Speci men Type: CEREBROSPINAL FLUID Ordering Facility: [facility] Address: [address] [place] [address] Performed By: #### L [id number], 27998-0 #### [facility] CLIA [id number] [address] [place] [address] [place] RBC Manual cnt (CSF) [#/Vol] 1 cells/uL Normal 0-5 [facility] Comment on above: Order Comment: Speci men Type: CEREBROSPINAL FLUID Ordering Facility: [facility] Address: [address] [place] [address] Performed By: #### L [id number], 06231-1 #### [facility] CLIA [id number] [address] [place] [address] WBC Manual cnt (CSF) [#/Vol] 1 cells/uL Normal 0-5 [facility] Comment on above: Order Comment: Speci men Type: CEREBROSPINAL FLUID Ordering Facility: [facility] Address: [address] [place] [address] Performed By: #### L [id number], 97636-0 #### [facility] CLIA [id number] [address] [place] [address] IR LUMBAR PUNCTURE DIAGon IR LUMBAR PUNCTURE DIAG * * *Final Report* * * DATE OF EXAM: Sep 28 2022 2:41PM [facility] 7594 - IR LUMBAR PUNCTURE DIAG / PROCEDURE REASON: NPH (normal pressure hydrocephalus) (HCC) [G91.2] * * * * Physician Interpretation * * * * PROCEDURE: Diagnostic Lumbar Puncture Under Fluoroscopic Guidance HISTORY: The patient is a 61 years year old Male who presented with headache. Consent: The risks, benefits, treatment options, potential complications, equipment, and personnel to be involved were discussed (including the risks of radiation exposure, contrast and anesthesia administration) with the patient. All of his questions were answered and consent was obtained prior to procedure. The patient indicated he was willing to proceed. General: A) Medication Reconciliation: The patient's medications and allergies were reviewed in the electronic medical record and reconciled to the proposed procedure/treatment. B) Pre-Procedure Medications: Medication #1: None C) Positioning: The patient was placed Prone on the fluoroscopy table. D) The Lumbar dorsal soft tissues. were then sterile prepped and draped. E) Time Out: A time out was performed immediately prior to procedure start with the nursing, anesthesia and interventional team, correctly identifying the name, medical record number, procedure, anatomy (including marking of site and side), patient position, procedure consent form, relevant diagnostic and radiology test results, antibiotic administration, safety precautions, and procedure-specific equipment needs. Timeout Affirmation (if attending not present): PA, RN, and RT present. F) Anesthesia Type: administration of local anesthesia. Local Anesthesia: 7 mL 2% Lidocaine G) Anesthesia Was Administered For A Total Of None. H) Patient Monitoring: N/A TECHNIQUE/RESULT: A) Access Site: 9 cm 20 gauge spinal needle from a left paramedian approach at the L2-L3 level, unable to advance needle into subarachnoid space. Next a 9 cm 20 gauge needle from a midline approach at the level of L4-L5. B) Counting reference: Lumbosacral junction. For the purposes of this report, L4-5 is considered the level of the iliac crest. C) Procedure Details: Using sterile procedure, local anesthesia was introduced to the skin and subcutaneous tissues as outlined above. Diagnostic LP Details: Under fluoroscopic guidance, the needle was carefully advanced into the lumbar subarachnoid space resulting in free flow of CSF. Diagnostic Volume: 24 mL of CSF was withdrawn of which 11 mL was forwarded to the lab for analysis. Opening pressure was recorded at 15 cm H2O Closing pressure was recorded at < 9 cm H2O CSF Color: Clear D) Estimated Blood Loss: trace E) Type of Removed Specimens: CSF F) Number of Specimens vials: 2 Fluoroscopic Radiation Summary: Fluoroscopic guidance was performed in conjunction with the lead slot technician. Plane A, Air Kerma: 20.0 mGy Dose Area Product (DAP): 45369.1 mGy*cm2 Fluoro time: 3:54 min: sec Post-Procedure: Conclusion: The patient was transferred to the Radiology Recovery Room in stable condition and observed for approximately 60 minutes. Immediate Complications: None. Delayed Complications (will be reported as an addendum to the original report): None apparent at this time Timeout Time and Procedure Start Time: 13:58 Procedure End Time and Sign Out Time: 14:27 IMPRESSION: TECHNICALLY SUCCESSFUL DIAGNOSTIC LUMBAR PUNCTURE. The procedure was performed by: Demond Cat APRN.CNP Carrot Tier: HARPER Transcribe Date/Time: Sep 28 2022 3:15P Dictated by : DEMOND CAT CNP This examination was interpreted and the report reviewed and electronically signed by: DEMOND CAT CNP on Apr 13 2023 3:22PM EST [id number] [facility] NURSING PROGon 09-28-2022 NURSING PROG HNO ID: [id number] Author: Court Magana, RN Service: Nursing Author Type: Registered Nurse Type: Nursing Progress Note Filed: 09/28/2022 1:09 PM Note Text: PATIENT EDUCATION TOPIC: PROCEDURE / SURGERY: Pre Procedure Teaching: LP Post Procedure Teaching: LP PATIENT NAME: Jovani Melendez PATIENT LOCATION: INTERVENTIONAL RADIOL* READINESS TO LEARN COGNITIVE ABILITY: Alert and oriented MOTIVATION TO LEARN: Eager FAMILY SUPPORT: None - Unavailable/disinterested INSTRUCTION PROVIDED TO: Patient PATIENT LEARNS BEST BY: Individual Instruction Written Instruction - Hand-outs Verbal Instruction FACTORS AFFECTING LEARNING: None PHYSICAL LIMITATIONS AFFECTING LEARNING: None LEARNING RESPONSE DIAGNOSIS: ADULT: LP PATIENT/FAMILY RESPONSE: Verbalizes understanding of: POST-PROCEDURE INSTRUCTIONS-Correct actions to take to reduce post procedure complications PRE-PROCEDURE INSTRUCTIONS-Correct action to take to follow pre-procedure instructions METHOD OF INSTRUCTION: Individual instruction Written instruction - handouts Verbal instruction FOLLOW-UP PLAN: Follow-up with Primary Care INSTRUCTIONAL AIDS USED: NA SUPPLEMENTAL MATERIAL PROVIDED TO PATIENT: None REFERRAL (RECOMMENDATION): Primary Care Provider Electronically Signed By: Court Magana [facility] MRI BRAIN WO/W IVCONon 09-22 MRI BRAIN WO/W IVCON * * *Final Report* * * DATE OF EXAM: Sep 22 2022 3:02PM [facility] 0295 - MRI BRAIN WO/W IVCON / PROCEDURE REASON: 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HCC) * * * * Physician Interpretation * * * * EXAMINATION: MRI BRAIN WO/W IVCON HISTORY: Hydrocephalus versus idiopathic intracranial hypertension; vestibular schwannoma suspected; pontine lesion suspected TECHNIQUE: Routine brain MRI protocol without and with contrast including diffusion and gradient echo images. Additional axial CISS sequence and other sequences dedicated for evaluation the internal auditory canals were performed. MQ: [id number]_2 Contrast: 15 mL Dotarem IV COMPARISON: MRI brain 01/17/2022 RESULT: Acute Change: There is no evidence of restricted diffusion to suggest an acute infarct. Hemorrhage: No evidence of prior parenchymal hemorrhage within the limitations of this exam. Mass Lesion/ Mass Effect: Nonspecific FLAIR hyperintensity within the right naldo which crosses midline into the anterior left naldo. Using 3-D MPR techniques to coregister identical planes to 01/17/2022, there is no significant change to within a millimeter. No abnormal parenchymal or leptomeningeal enhancement is noted following contrast administration. No significant mass effect. Chronic Change: Scattered punctate foci of increased T2 and FLAIR signal are noted in the supratentorial white matter which is a nonspecific finding, but likely represents minimal chronic microvascular ischemia. Parenchyma: No significant volume loss for age. Ventricles: Normal caliber and morphology. Skull Base: There is a small 2 mm focus of enhancement in the fundus of the right IAC, unchanged compared to 10/05/2021, and could represent a tiny vestibular schwannoma. On the contralateral side there is an even smaller 1 mm focus of possible enhancement, unclear if this is vascular or normal. Hypothalamic and pituitary region are grossly normal. Craniocervical junction is normal. No significant marrow replacement process. Vasculature: Major intracranial arterial structures, and dural venous sinuses show typical flow void, suggesting patency by spin echo criteria. Other: The visualized paranasal sinuses and mastoid air cells are clear. The orbits and extracranial soft tissues are unremarkable. IMPRESSION: 1. STABLE TINY ENHANCEMENT IN RIGHT IAC DISCUSSED, COULD REPRESENT SMALL VESTIBULAR SCHWANNOMA 2. STABLE NONSPECIFIC PONTINE SIGNAL ABNORMALITY WITHOUT ABNORMAL ENHANCEMENT Carrot Tier: PSCB Transcribe Date/Time: Sep 22 2022 3:14P Dictated by : MARY [place]ORAD[place], DO This examination was interpreted and the report reviewed and electronically signed by: SALENA MICHAEL MD on Sep 22 2022 3:42PM EST [id number] Normal [facility] Hyun 09-18-2022 [facility] Telephone ([facility]) ----- JOVANI MELENDEZ ([id number]) 1960 M Date Time Provider Department 09/18/22 KELTON PEREZ [facility] During your visit today, we recorded the following information about you: Selam Torito [facility] 09/18/2022 12:20 PM Signed General Call Caller : Jovani Contact Reason for Call : Pt has follow up questions after most recent visit. Patient requesting return call ? Yes Akash Menezes RN 09/18/2022 12:42 PM Signed Called patient via phone. Pt states that his MRI shows a 2mm vestibular schwannoma an brain stem spots . Pt wants to know: could vestibular schwannoma be causing symptoms? Message sent to Kelton SAAVEDRA for review and recommendation. Kelton Perez PA-C 09/20/2022 11:29 AM Signed Vestibular schwannoma causes hearing loss. Doubtful that it would cause the other symptoms but this should be addressed with Dr. Jackson. We should repeat another MRI brain with and without contrast for further follow up on this. Akash Menezes RN 09/20/2022 1:04 PM Signed Called and spoke with pt via phone. Notified pt that per Kelton SAAVEDRA, the vestibular schwannoma could effect pt's hearing but would not cause his other symptoms. Also notified pt that a brain MRI has been ordered and should be done prior to his appointment with Dr. Jackson. Pt verbalized understanding and denies any further needs at this time. Allergies As of Date: 09/18/2022 Noted Allergy Reaction KEFLEX (CEPHALEXIN) 11/25/2018 4 - Hives Date Reviewed: 09/13/2022 Reviewed by: Antonia Tripathi MA - Fully Assessed Reason for Visit: Patient Question [4427] Primary Visit Diagnosis: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] Order(s):MRI BRAIN WO/W IVCON [[id number]] Order #: [id number] FUTURE iv contrast (will be provided with radiology test)MRI Brain Inject, intravenously, once for 1 dose.No IV access, insert saline lock prior to beginning of sedation, infusion, injection of imaging exam.Discontinue saline lock post exam. If Pt. has a central line or IVAD, may access for administration according to line specific nursing protocol.Once exam is complete flush line and de-access according to line specific nursing protocol in the MR contrast administration guidelines linkDisp: 1 EachRfl: 0 Prescriptions as of 09/20/2022 - iv contrast (will be provided with radiology test) MRI Brain Inject, intravenously, once for 1 dose.No IV access, insert saline lock prior to beginning of sedation, infusion, injection of imaging exam.Discontinue saline lock post exam. If Pt. has a central line or IVAD, may access for administration according to line specific nursing protocol.Once exam is complete flush line and de-access according to line specific nursing protocol in the MR contrast administration guidelines link - acetaZOLAMIDE (DIAMOX) 250 mg tablet take 1 tablet by mouth every morning and AFTERNOON and 2 at bedtime as directed - acetaminophen 325 mg-caffeine 40 mg-butalbital 50 mg (FIORICET) per tablet take 1 tablet by mouth every 4 to 6 hours if needed for headache or migraines for 30 DAYS - hydrOXYzine HCl (ATARAX) 25 mg tablet take 1 to 2 tablets by mouth at bedtime if needed - mirtazapine (REMERON) 15 mg tablet Take by mouth daily at bedtime. - montelukast (SINGULAIR) 10 mg tablet Take 10 mg by mouth daily at bedtime. - tiZANidine (ZANAFLEX) 4 mg tablet Take 4 mg by mouth at bedtime as needed. - divalproex ER (DEPAKOTE ER) 250 mg 24 hr tablet Take 250 mg by mouth once daily. - atorvastatin (LIPITOR) 10 mg tablet Take 10 mg by mouth once daily. - ALPRAZolam (XANAX) 0.25 mg tablet Take 0.25 mg by mouth once daily as needed. - iv contrast (will be provided with radiology test) CT Chest W -Inject, intravenously, once for 1 dose.No IV access, insert saline lock prior to the beginning of sedation, infusion, injection of imaging exam. Discontinue saline lock post exam. If Pt. has a central line or IVAD, may access for administration according to line specific nursing protocol. Once exam is complete flush line and de-access according to line specific nursing protocol in the CT contrast administration guidelines link. - buPROPion SR (WELLBUTRIN SR) 150 mg 12 hr tablet Take 1 tablet by mouth twice daily. - gabapentin (NEURONTIN) 300 mg capsule Take 1 capsule by mouth three times daily for 30 days. - citalopram (CELEXA) 40 mg tablet Take 40 mg by mouth once daily. - doxycycline monohydrate (MONODOX) 100 mg capsule TAKE 1 CAPSULE BY MOUTH EVERY 12 HOURS FOR 10 DAYS - Multivitamin capsule Take 1 capsule by mouth once daily. 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 [facility] CNOVon 09-13-2022 CNOV Office Visit (NSCAMN ) ----- JOVANI MELENDEZ ([id number]) 1960 M Date Time Provider Department 09/13/22 10:15 AM KELTON PEREZ NSCAMN During your visit today, we recorded the following information about you: Temperature Pulse Respiration Blood pressure 97.4 degrees 70/minute 18/minute 133/61 Weight Height 77.3 kg 1.706 m Kelton Perez PA-C 09/20/2022 11:24 AM Addendum This note was created using NoteWriter. 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 Only high-risk feature is the node being greater than 3 cm. 6mm CARMEL pulmonary nodule December 2018. Typically he has pain behind the R eye, balance difficulties, R side of the head pressure, R leg pain with walking (calf feels like it is going to explode ), blurry vision, pain in the base of the skull radiating up to the top of the head. Occasionally, he gets R ear pressure as well. Symptoms started about a year ago.He reports the symptoms as daily. Lying down on the back of the head cause more head pain. Only thing that makes the symptoms better are spinal taps. He reported improvement of all of these symptoms x 24 hours. He has had 2 spinal taps in the past with improvement in symptoms both times. One LP OP was measured at 17.5. Because his symptoms improved with the spinal tap, he was started on diamox. He has not noticed any improvement with this. He did have an eye exam and was told his R optic nerve is slightly larger than the L. He has urinary urgency related to diamox. No incontinence, no short term memory loss. Review of Systems Constitutional: Positive for fatigue. Negative for fever. HENT: Positive for tinnitus and trouble swallowing. Eyes: Positive for pain and visual disturbance. Respiratory: Positive for cough. Negative for wheezing. Cardiovascular: Negative for chest pain and leg swelling. Gastrointestinal: Negative for nausea and vomiting. Genitourinary: Positive for frequency and urgency. Musculoskeletal: Positive for gait problem. Neurological: Positive for dizziness and headaches. Psychiatric/Behavioral: Negative for dysphoric mood. The patient is not nervous/anxious. Objective There were no vitals taken for this visit. Physical Exam Constitutional: Appearance: Normal appearance. HENT: Head: Normocephalic and atraumatic. Eyes: Extraocular Movements: Extraocular movements intact. Conjunctiva/sclera: Conjunctivae normal. Pulmonary: Effort: Pulmonary effort is normal. No respiratory distress. Skin: General: Skin is warm and dry. Neurological: General: No focal deficit present. Mental Status: He is alert and oriented to person, place, and time. Cranial Nerves: No dysarthria or facial asymmetry. Motor: No weakness or pronator drift. Coordination: Romberg sign negative. Kfayrc-Ynza-Odfnli Test normal. Gait: Gait abnormal. Comments: Slightly off balance and wide gait Tandem walk was difficult Assessment and Plan Eval for comm hydro vs IIH H/o tongue squamous cell carcinoma S/o balance issues, R sided head pain, r ear pain, R calf pain, blurry vision, pain in base of skull radiating to top of head. Symptoms x 1 year 2 LPs with one OP taken of 17.5 Improvement of symptoms with both LPs x 24 hours Per pt report ophthalmology states R eye nerve slightly larger than left Referred for consideration of shunt. MRI brain does not show evidence of hydrocephalus Last MRI brain 01/2022 unable to view due to computer not loading. Will upload this to pt chart Based on pt report of improvement in symptoms after both LPs, and MD/Neurology referral, will recommend IR LP, high volume. Pt given instructions to video tape prior to and after LP. Explicit instructions provided to them on how to video tape. Pt will f/u with Dr. Jackson for consideration of surgical intervention after LP completed. MRI brain completed in September of 2021 and results in scanned documents. MRI shows T2 hyperintense lesions in the naldo that cross midline. Etiology unknown. Also noted was a small possible vestibular schwannoma on the R. There appears to be an MRI brain w/ and w/o from january but no results are available. Based on those results, he may need to be evaluated with a MRI brain w/ and w/o contrast and correct referrals placed. I will communicate with pt via my chart for these orders. Pt may still follow up with Dr. Jackson for appropriate referrals. I spent a total of 50 minutes on the date of the service which included preparing to see the patient, [id number] patient care, completing clinical documentation, obtaining and/or reviewing separately obtained history, performing a medically appropriate examination, counseling and educating the patient/fam (more content not included)... [facility] COVID + FLU Quick Testingon 08-01-2022 SARS-CoV-2 (COVID-19) RNA JER+probe Ql (Unsp spec) Negative [facility] Other COVID + FLU Quick Testing neagative [facility] Other COVID + FLU Quick Testing Negative [facility] Other RSVon 08-01-2022 RSV Ag IA Ql (Unsp spec) Positive [facility] Other Cerebrospinal fluid post-valdez trifugation appearance determinationOrdered By: Elvi Cadena on 07-17-2022 Appearance (Spun CSF) Colorless Colorless [facility] Cerebrospinal fluid sample t ube volume measurementOrdered By: Elvi Cadena on 07-17-2022 Specimen volume (CSF) 22.0 mL [facility] Color CSFOrdered By: Elvi Cadena on 07-17-2022 Color (CSF) Colorless Colorless [facility] Manual cerebrospinal fluid e rythrocytes count (number/volume)Ordered By: Elvi Cadena on 07-17-2022 RBC Manual cnt (CSF) [#/Vol] 0 /uL [facility] Comment on above: The reference interv al and other method performance specifications have not been established for this body fluid. The test result must be integrated into the clinical context for interpretation. No Panel InformationOrdered By: Elvi Cadena on 07-17-2022 CSF Appearance Clear Clear [facility] CSF Tube Number Tube number: 1 [facility] Nucleated cells [#/volume] i n Cerebral spinal fluid by Manual countOrdered By: Elvi Cadena on 07-17-2022 Nucleated cells Manual cnt (CSF) [#/Vol] 0.003 10*3/uL 0-5 [facility] Activated partial thrombopla stin time (aPTT) in platelet poor plasma by coagulation aOrdered By: Loi Wong on 04-16-2022 aPTT Coag (PPP) [Time] 32.8 s 25.1-36.5 [facility] Basophils Auto (Bld) [#/Vol] Ordered By: Loi Wong on 04-16-2022 Basophils (Bld) [#/Vol] 0.1 10*3/uL 0.0-0.2 [facility] Basophils/100 WBC Auto (Bld) Ordered By: Loi Wong on 04-16-2022 Basophils/100 WBC (Bld) 1.2 % . [facility] Creatine kinase [Enzymatic a ctivity/volume] in Serum or PlasmaOrdered By: Loi Wong on 04-16-2022 CK [Catalytic activity/Vol] 69 U/L 22-269 [facility] Creatinine and Glomerular fi ltration rate.predicted panel (S/P/Bld)Ordered By: Loi Wong on 04-16-2022 Creatinine [Mass/Vol] 0.97 mg/dL 0.64-1.27 [facility] Eosinophils Auto (Bld) [#/Vo l]Ordered By: Loi Wong on 04-16-2022 Eosinophils (Bld) [#/Vol] 0.1 10*3/uL 0.0-0.45 [facility] Eosinophils/100 WBC Auto (Bl d)Ordered By: Loi Wong on 04-16-2022 Eosinophils/100 WBC (Bld) 1.2 % . [facility] Erythrocyte distribution wid th Auto (RBC) [Ratio]Ordered By: Loi Wong on 04-16-2022 Erythrocyte distribution width (RBC) [Ratio] 14.1 % 12.0-14.8 [facility] Estimated glomerular filtrat ion rate (GFR) non- AmericanOrdered By: Loi Wong on 04-16-2022 GFR/1.73 sq M.predicted among non-blacks MDRD (S/P/Bld) [Vol rate/Area] > 60 mL/Min [facility] Hematocrit Auto (Bld) [Volum e fraction]Ordered By: Loi Wong on 04-16-2022 Hematocrit (Bld) [Volume fraction] 43.2 % 38.8-50.0 [facility] Hemoglobin [Mass/volume] in BloodOrdered By: Loi Wong on 04-16-2022 Hemoglobin (Bld) [Mass/Vol] 14.7 g/dL 13.0-17.0 [facility] Laboratory - Chemistry and C hemistry - challengeOrdered By: Loi Wong on 04-16-2022 Natriuretic peptide B (Bld) [Mass/Vol] 29.0 pg/mL 5-100 [facility] - CoagulationOrde red By: Loi Wong on 04-16-2022 PT Coag (PPP) [Time] 12.0 s 9.0-12.9 [facility] - Hematology and Cell countsOrdered By: Loi Wong on 04-16-2022 Nucleated RBC/100 WBC (Bld) [Ratio] 0.1 % 0-0.5 [facility] Leukocytes [#/volume] in Blo od by Automated countOrdered By: Loi Wong on 04-16-2022 WBC (Bld) [#/Vol] 7.7 10*3/uL 4.5-11.0 [facility] Lymphocytes Auto (Bld) [#/Vo l]Ordered By: Loi Wong on 04-16-2022 Lymphocytes (Bld) [#/Vol] 2.3 10*3/uL 1.00-4.8 [facility] Lymphocytes/100 WBC Auto (Bl d)Ordered By: Loi Wong on 04-16-2022 Lymphocytes/100 WBC (Bld) 29.4 % . [facility] MCH Auto (RBC) [Entitic mass ]Ordered By: Loi Wong on 04-16-2022 MCH (RBC) [Entitic mass] 32.0 pg 27.5-35.2 [facility] MCHC Auto (RBC) [Mass/Vol]Or dered By: Loi Wong on 04-16-2022 MCHC (RBC) [Mass/Vol] 34.0 g/dL 32.5-35.6 [facility] MCV Auto (RBC) [Entitic vol] Ordered By: Loi Wong on 04-16-2022 MCV (RBC) [Entitic vol] 94.0 fL 83.5-101 [facility] Monocytes Auto (Bld) [#/Vol] Ordered By: Loi Wong on 04-16-2022 Monocytes (Bld) [#/Vol] 0.6 10*3/uL 0.0-0.8 [facility] Monocytes/100 WBC Auto (Bld) Ordered By: Loi Wong on 04-16-2022 Monocytes/100 WBC (Bld) 7.7 % . [facility] Neutrophils Auto (Bld) [#/Vo l]Ordered By: Loi Wong on 04-16-2022 Neutrophils (Bld) [#/Vol] 4.7 10*3/uL 1.8-7.7 [facility] Neutrophils/100 WBC Auto (Bl d)Ordered By: Loi Wong on 04-16-2022 Neutrophils/100 WBC (Bld) 60.5 % . [facility] No Panel InformationOrdered By: Loi Wong on 04-16-2022 D-Dimer Quantitative (PE/DVT) < 200 ng/mL 0-243 [facility] Comment on above: The reference range for D-dimer is <243 ng/mL D-dimer units.D-dimer results must be used in conjunction with a clinicalpretest probability (PTP) assessment model for deep veinthrombosis (DVT) and pulmonary embolism (PE). Results <230ng/mL d-dimer units can be used as a negative predictor inpatients with low or moderate probability for DVT/PE.Results above the exclusion threshold of 230 ng/ml D-dimerunits for DVT/PE may indicate the need for furtherdiagnostic testing.D-Dimer can be increased in hospitalized patients due toco-morbid conditions. Estimated GFR () > 60 mL/Min [facility] Comment on above: GFR estimated refere nce range: According to KDOQI guidelines, <60 ml/min/1.73m2 is sufficient to diagnose a patient with chronic kidney disease. Pharmacy Creatinine Clearance (Chem 79.33 [facility] Platelet mean volume Auto (B ld) [Entitic vol]Ordered By: Loi Wong on 04-16-2022 Platelet mean volume (Bld) [Entitic vol] 9.7 fL 6.6-10.1 [facility] Platelet poor plasma interna tional normalized ratio (INR) by coagulation assay (relatOrdered By: Loi Wong on 04-16-2022 INR Coag (PPP) [Relative time] 1.1 {INR} [facility] Comment on above: INR Therapeutic Rang e A) Pre- and Peroperative OAT started two weeks before surgery. NOT HIP SURGERY: 1.5 - 2.5 HIP SURGERY: 2 - 3B) Primary and secondary prevention of venous THROMBOSIS: 2 - 3C) Active venous thrombosis, pulmonary embolismand prevention of recurrent venous thrombosis: 2 - 3D) Prevention of arterial thromboembolismincluding patients with mechanical heart valves: 3 - 4.5 Platelets Auto (Bld) [#/Vol] Ordered By: Loi Wong on 04-16-2022 Platelets (Bld) [#/Vol] 238 10*3/uL 150-450 [facility] RBC Auto (Bld) [#/Vol]Ordere d By: Loi Wong on 04-16-2022 RBC (Bld) [#/Vol] 4.59 10*6/uL 3.90-5.60 [facility] Serum or plasma anion gap de terminationOrdered By: Loi Wong on 04-16-2022 Anion gap [Moles/Vol] 12.4 mmol/L 6.0-15.0 [facility] Serum or plasma calcium paramjit urement (mass/volume)Ordered By: Loi Wong on 04-16-2022 Calcium [Mass/Vol] 9.0 mg/dL 8.2-10.2 [facility] Serum or plasma chloride robby surement (moles/volume)Ordered By: Loi Wong on 04-16-2022 Chloride [Moles/Vol] 103 mmol/L 95-114 [facility] Serum or plasma creatine kin ase MB (CKMB)/total creatine kinase (CK) ratio by calculaOrdered By: Loi Wong on 04-16-2022 CK.MB Calc [Catalytic fraction] 2.0 % 0.00-2.50 [facility] Serum or plasma creatine kin ase MB measurement (mass/volume)Ordered By: Loi Wong on 04-16-2022 CK.MB [Mass/Vol] 1.4 ng/mL 0.6-6.3 [facility] Serum or plasma glucose paramjit urement (mass/volume)Ordered By: Lio Wong on 04-16-2022 Glucose [Mass/Vol] 88 mg/dL 70-100 [facility] Comment on above: ADA recommended refe rence rangeRandom Glucose Reference Range is dependent on time and content of last meal. Glucose of more than 200 mg/dL in a nonstressed, ambulatory subject supports the diagnosis of Diabetes Mellitus. Serum or plasma potassium me asurement (moles/volume)Ordered By: Loi Wong on 04-16-2022 Potassium [Moles/Vol] 4.3 mmol/L 3.5-5.1 [facility] Serum or plasma sodium measu rement (moles/volume)Ordered By: Loi Wong on 04-16-2022 Sodium [Moles/Vol] 135 mmol/L 136-146 [facility] Serum or plasma total carbon dioxide measurement (moles/volume)Ordered By: Loi Wong on 04-16-2022 CO2 [Moles/Vol] 23.9 mmol/L 22.0-30.0 [facility] Serum or plasma urea nitroge n measurement (mass/volume)Ordered By: Loi Wong on 04-16-2022 Urea nitrogen [Mass/Vol] 12 mg/dL 9- [facility] Troponin I.cardiac [Mass/vol ume] in Serum or Plasma by High sensitivity methodOrdered By: Loi Wong on 04-16-2022 Troponin I.cardiac High sensitivity method [Mass/Vol] 5 pg/mL 0-20 [facility] CNPNon 03-27-2022 CNPN Telephone (SynergEyes) ----- JOVANI MELENDEZ ([id number]) 1960 M [facility] Date Time Provider Department 03/27/22 ASYA GREENE During your visit today, we recorded the following information about you: Asya Greene RN 03/27/2022 12:16 PM Signed Patient got a text over the weekend about an appointment with a [facility] neurosurgeon. He has not seen you since 10/2021. He states st that time you did not see the need for a neurosurgeon as his tumor was too small. Now he all of the sudden has an appointment with this [facility] neurosurgeon and is confused. Can you review and advise as to this appointment with the neurosurgeon. JANEEN Ward MD 03/27/2022 2:01 PM Signed I don't quite remember what the discussion was - and Helene is gone - I think still worthwhile seeing NS. - not sure what prompted the call 5 months later.... Asya Greene RN 03/27/2022 2:21 PM Signed Informed patient of your recommendations. He states that he is seeing neurology in [place] and they do not feel he needs to see NS at this point. They are treating him for occipital neuralgia currently. Patient plans to cancel NS appointment. JANEEN Ward MD 03/27/2022 3:54 PM Signed Good with me Allergies As of Date: 03/27/2022 Noted Allergy Reaction KEFLEX (CEPHALEXIN) 11/25/2018 4 - Hives Date Reviewed: 10/13/2021 Reviewed by: Yarelis Cerda Ma - Fully Assessed Reason for Visit: Appointment [[id number]] Prescriptions as of 03/27/2022 - divalproex ER (DEPAKOTE ER) 250 mg 24 hr tablet Take 250 mg by mouth once daily. - atorvastatin (LIPITOR) 10 mg tablet Take 10 mg by mouth once daily. - ALPRAZolam (XANAX) 0.25 mg tablet Take 0.25 mg by mouth once daily as needed. - iv contrast (will be provided with radiology test) CT Chest W -Inject, intravenously, once for 1 dose.No IV access, insert saline lock prior to the beginning of sedation, infusion, injection of imaging exam. Discontinue saline lock post exam. If Pt. has a central line or IVAD, may access for administration according to line specific nursing protocol. Once exam is complete flush line and de-access according to line specific nursing protocol in the CT contrast administration guidelines link. - buPROPion SR (WELLBUTRIN SR) 150 mg 12 hr tablet Take 1 tablet by mouth twice daily. - gabapentin (NEURONTIN) 300 mg capsule Take 1 capsule by mouth three times daily for 30 days. - citalopram (CELEXA) 40 mg tablet Take 40 mg by mouth once daily. - doxycycline monohydrate (MONODOX) 100 mg capsule TAKE 1 CAPSULE BY MOUTH EVERY 12 HOURS FOR 10 DAYS - Multivitamin capsule Take 1 capsule by mouth once daily. 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] 10/13/2021 Encounter Status:Closed by ASYA GREENE on 03/27/22 [facility]20[facility] ----- JOVANI MELENDEZ ([id number]) 1960 M [facility] Date Time Provider Department 03/16/22 SELF NSCAMN During your visit today, we recorded the following information about you: Florentino Guan Tim 03/16/2022 12:27 PM Signed MD Memo Gomez MD Future Order Information Expires 10/13/22 Associated Diagnoses 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 Yes Pamela Nascimento APRN.MICROPALEONTOLOGIST 03/16/2022 2:55 PM Signed Time Frame: Next available Provider: Intra-axial neurosurgeon AND Neuro-Oncology (same day) Referring: Memo Cole MD Please instruct patient to hand carry/ upload images prior to appt Dx: Low grade glioma Patient: Jovani Melendez Address: Jovani Melendez [id number] [address] [place], [place] [id number] Per Triage: Jovani Melendez is a 61 year old male that requests evaluation of previously diagnosed possible low grade glioma. Patient expectations: Second opinion Tumor Specifics: Location: brain Previous Evaluations: MRI w/wo contrast (10/05/21): 10/05/[address] [facility] [place] Impression: 1. There is T2 and T2 flair hyperintense signal predominantly to the right of midline in the naldo but also involving the left anterior naldo with extension to the right facial colliculus and base of the right middle cerebellar pedicle. No accompanying diffusion restriction is noted. There is no accompanying abnormal postcontrast enhancement. This is of uncertain etiology with a differential including, a low-grade glial tumor, sequelae of previous demyelination. Other etiologies include posterior reversible encephalopathy syndrome should also be entertained. This is unlikely to represent sequelae of vascular ischemia as the lesion appears to cross midline into the left side of the naldo. 2. There appears to be a 2 mm focus of nodular enhancement at the apex of the right internal auditory canal. 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 Details within body of report: 1. Mild diffuse age-related cortical atrophy. In the cerebral parenchyma: There are a few scattered punctate periventricular and subcortical white matter T2 and FLAIR hyperintense foci suggesting mild chronic microvascular ischemic change. 2. Brainstem: There is T2 and T2 flair hyperintense signal predominantly to the right of midline in the naldo but also involving the left anterior naldo with extension to the right facial colliculus and base of the right middle cerebellar peduncle. No accompanying diffusion restriction is noted. There is no accompanying abnormal postcontrast enhancement. Previous Treatments: N/A Impression: As above. Pamela Nascimento APRN.MICROPALEONTOLOGIST March 16, 2022 Allergies As of Date: 03/16/2022 Noted Allergy Reaction KEFLEX (CEPHALEXIN) 11/25/2018 4 - Hives Date Reviewed: 10/13/2021 Reviewed by: Yarelis Cerda Ma - Fully Assessed Reason for Visit: Triage [Other] Cmt: Internal Referral--old Prescriptions as of 03/16/2022 - divalproex ER (DEPAKOTE ER) 250 mg 24 hr tablet Take 250 mg by mouth once daily. - atorvastatin (LIPITOR) 10 mg tablet Take 10 mg by mouth once daily. - ALPRAZolam (XANAX) 0.25 mg tablet Take 0.25 mg by mouth once daily as needed. - iv contrast (will be provided with radiology test) CT Chest W -Inject, intravenously, once for 1 dose.No IV access, insert saline lock prior to the beginning of sedation, infusion, injection of imaging exam. Discontinue saline lock post exam. If Pt. has a central line or IVAD, may access for administration according to line specific nursing protocol. Once exam is complete flush line and de-access according to line specific nursing protocol in the CT contrast administration guidelines link. - buPROPion SR (WELLBUTRIN SR) 150 mg 12 hr tablet Take 1 tablet by mouth twice daily. - gabapentin (NEURONTIN) 300 mg capsule Take 1 capsule by mouth three times daily for 30 days. - citalopram (CELEXA) 40 mg tablet Take 40 mg by mouth once daily. - doxycycline monohydrate (MONODOX) 100 mg capsule TAKE 1 CAPSULE BY MOUTH EVERY 12 HOURS FOR 10 DAYS - Multivitamin capsule Take 1 capsule by mouth once daily. 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 COMPARISON: Outside study 10/05/2021. TECHNIQUE: Multiplanar multisequence MRI of the brain was performed without and with contrast including thin slice axial and coronal T2 sequences and thin slice pre-and postcontrast axial and coronal T1 sequences for evaluation of the internal auditory canals. 16 mL of ProHance gadolinium contrast was administered. 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 Minimal subcortical supratentorial white matter changes most consistent with chronic small vessel ischemic disease also appear unchanged. 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 Brain volume is age-appropriate. Ventricular morphology is within normal limits. No acute hemorrhage, edema, other enhancing mass or pathologic enhancement, mass-effect, midline shift, or abnormal extra-axial fluid collection. No diffusion restriction. No suspicious susceptibility artifact identified on gradient echo sequence. No other pathologic enhancement of the bilateral cranial nerve VII/VIII complexes. Normal signal and morphology of the bilateral cochlea, vestibules, and semicircular canals. The major intracranial vascular flow voids appear maintained. 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 MINIMAL SUPRATENTORIAL WHITE MATTER CHANGES MOST CONSISTENT WITH CHRONIC SMALL VESSEL ISCHEMIC DISEASE. Report reported and signed by Jillian Morales on 01/18/2022 1413 Normal [facility] Cell Count + Differential, C on 11-07-2021 WBC (Bld) [#/Vol] 0.006 10*3/uL above high threshold 0 - 5 [facility] Work Phone: [phone] Cell Count + Differential, CSF 70 1 [facility] Work Phone: Cell Count + Differential, CSF 10 % [facility] Work Phone: Cell Count + Differential, CSF 60 % [facility] Work Phone: [phone] Cell Count + Differential, CSF 30 % [facility] Work Phone: [phone] Cell Count + Differential, CSF Colorless COLORLESS [facility] Work Phone: [phone] Cell Count + Differential, CSF 245 /uL above high threshold 0 - 5 [facility] Work Phone: [phone] Cell Count + Differential, CSF Tube 1 [facility] Work Phone: [phone] Cell Count + Differential, CSF Clear CLEAR [facility] Work Phone: [phone] Cult, CSF, includes smearon 11-07-2021 Bacteria identified Cx Nom (CSF) [facility] Work Phone: [phone] Laboratoryon 11-07-2021 Albumin in CSF/Albumin in Serum or Plasma (S/P+CSF) [Relative ratio] 7.9 {ratio} 0.0-9.0 [facility] Work Phone: [phone] Albumin in CSF/Albumin in Serum or Plasma (S/P+CSF) [Relative ratio] Canceled [facility] Work Phone: [phone] Laboratory - Chemistry and C hemistry - challengeon 11-07-2021 Albumin (CSF) [Mass/Vol] 36 mg/dL above high threshold 0-35 [facility] Work Phone: [phone] Albumin [Mass/Vol] 4578 mg/dL [phone] [facility] Work Phone: [phone] IgG (CSF) [Mass/Vol] 2.2 mg/dL 0.0-6.0 [facility] Work Phone: [phone] IgG [Mass/Vol] 496 mg/dL below low threshold [phone] [facility] Work Phone: [phone] Comment on above: REFERENCE INTERVAL: Immunoglobulin GAccess complete set of age- and/or gender-specific reference intervals for this test in the [facility] [employer] [facility] Test Directory ([employer]). IgG clearance/Albumin clearance (S+CSF) [Ratio] 0.56 {ratio} 0.28-0.66 [facility] Work Phone: [phone] IgG synthesis rate Calc (S+CSF) [Mass/Time] 0.5 mg/d <=8.0 [facility] Work Phone: [phone] IgG/Albumin (CSF) [Mass ratio] 0.06 {ratio} below low threshold 0.09-0.25 [facility] Work Phone: [phone] Oligoclonal bands Elph (CSF) [Interp] Negative Negative [facility] Work Phone: [phone] Oligoclonal bands Elph Curtis (CSF) [Interp] See Note [facility] Work Phone: [phone] Comment on above: Isoelectric focusing /immunofixation revealed no oligoclonal bands in either the CSF or the serum. This is considered to be a negative result for oligoclonal bands. Approximately 5 percent of patients with clinically definitive multiple sclerosis will have a negative result.Performed By: [facility] [place] [address] [id number] Director: Paula Middleton MD Albumin (CSF) [Mass/Vol] Canceled [facility] Work Phone: [phone] Albumin [Mass/Vol] Canceled [facility] [employer] Work Phone: [phone] Glucose (CSF) [Mass/Vol] 56 mg/dL 40 - 70 [facility] Work Phone: [phone] IgG (CSF) [Mass/Vol] Canceled [facility] Work Phone: [phone] IgG [Mass/Vol] Canceled [facility] Work Phone: [phone] IgG clearance/Albumin clearance (S+CSF) [Ratio] Canceled [facility] Work Phone: [phone] IgG synthesis rate Calc (S+CSF) [Mass/Time] Canceled [facility] Work Phone: [phone] IgG/Albumin (CSF) [Mass ratio] Canceled [facility] Work Phone: [phone] Oligoclonal bands Elph (CSF) [Interp] Canceled [facility] Work Phone: [phone] Oligoclonal bands Elph Curtis (CSF) [Interp] Canceled [facility] Work Phone: [phone] Protein (CSF) [Mass/Vol] 66 mg/dL above high threshold 15 - 45 [facility] Work Phone: [phone] No Panel Informationon 11-07 0 {Bands} 0-1 [facility] Work Phone: [phone] [facility] Work Phone: [phone] Canceled [facility] Work Phone: [phone] Path Review, CSFon 2 Path Review, CSF JIMBO [facility] Work Phone: [phone] Comment on above: By her/his signature above, the Pathologist listed as making the final interpretation certifies that she/he has personally reviewed this case. HEMORRHAGIC SPECIMEN, NO MALIGNANT CELLS IDENTIFIED. 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 Exam is KPS of 90 with no focal deficits other than as noted. Of note MRI shows hyperintense lesion in the brainstem with subtle hypervascularity possibly consistent with demyelinating neoplastic or inflammatory disease,. Patient was referred to me by Dr. Rodrigez for diagnosis. I have asked Katja Beryl to see the patient and she will form a large-volume tap in the next week or so. We will then do a virtual visit to review the data and ascertain additional work-up required. All questions were answered. Chief Complaint Patient referred by Dr. Narayan regarding brainstem MRI changes. History of Present Illness The patient has a long and complex history. He has a history of melanoma of his nose which was exciseed 12 to 13 years ago and felt to be cured. 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 Connor Fields the time he had multiple lymph node dissections of up to [address] James henry. Again he was felt to be cured with no radiation chemotherapy administered. Back 2 months ago he started to having brain fog and bilateral tinnitus. He went to the ER was told he had a sinus infection. He was started on antibiotics and steroids with some improvement of the symptoms. Once the antibiotic stopped he never got fever or neck stiffness but when the steroid stopped he went back to his baseline which was worse. MRI showed abnormal signal in the naldo and he sent to me in consultation. He has mild headaches but denies weakness numbness or seizure. He saw Dr. Ba a neurologist in [facility]. He describes his vision as seeing 1-1/2 . He describes this does not seem quite to but finding a time lab between moving his eyes and having the visual change. Review of Systems Constitutional - no fever, no chills, no recent weight gain and no recent weight loss. Eyes - no blurred vision, no floaters, no unilateral loss of vision and no tunnel vision. ENT - no hearing loss, no nosebleeds, no dysphagia and no hoarseness. Cardiovascular - no chest pain, no chest pressure and no palpitations. Respiratory - no shortness of breath, no shortness of breath during exertion, no asthma, no cough and no hemoptysis. Gastrointestinal - no abdominal pain, no constipation, no heartburn, no nausea, no vomiting, no change in bowel movement, no diarrhea and no blood in stools. Genitourinary - no dysuria and no hematuria. Integumentary - no pressure wounds and is not slow to heal. Psychiatric - no suicidal ideations. Endocrine - no proptosis, heat or cold intolerance, no polydipsia, no polyuria, no abnormal was observed, no deepening of the voice and no hot flashes. Hematologic/Lymphatic - no swollen glands, no thrombophlebitis, no anemia, no tendency for easy bleeding, no tendency for easy bruising and no blood transfusion. Negative for complaint - All other systems have been reviewed and are negative for complaint. 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) Thyroid nodule (241.0) (E04.1) Weight loss (783.21) (R63.4) Past Medical History History of squamous cell carcinoma (V10.89) (Z85.89) Surgical History History of Excision melanoma Family History Family history of malignant neoplasm of urinary bladder (V16.52) (Z80.52) Social History Cigarette smoker (305.1) (F17.210) Former consumption of alcohol (V11.3) (Z87.898) Allergies Keflex Recorded By: Ana Galvez; 12/31/2018 4:19:20 PM Current Meds Medication NameInstruction Aspirin 81 MG TABS Atorvastatin Calcium 10 MG Oral Tablet Divalproex Sodium ER 250 MG Oral Tablet Extended Release 24 Hour tiZANidine HCl - 4 MG Oral Tablet Vitals Vital Signs Recorded: 03Nov2021 09:38AM Orycicbuwwe93.2 F Heart Rate63 Uqmvsknsnap35 Woknhzuh504 Gafwvctik52 Blood Pressure Cuff SizeAdult Height5 ft 7.13 in Mvdhkq235 lb 6 oz BMI Xsnbipqkdz77.05 kg/m2 BSA Calculated1.91 Tobacco Usea) Yes Fall Screeninga) No falls within the last year O2 Lguailtlqq93 Pain Scale7 Physical Exam Constitutional - General appearance: No acute distress, well de (more content not included)... 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 Exam is KPS of 90 with no focal deficits other than as noted. Of note MRI shows hyperintense lesion in the brainstem with subtle hypervascularity possibly consistent with demyelinating neoplastic or inflammatory disease,. Patient was referred to me by Dr. Rodrigez for diagnosis. I have asked Katja Cordoba to see the patient and she will form a large-volume tap in the next week or so. We will then do a virtual visit to review the data and ascertain additional work-up required. All questions were answered. Chief Complaint Patient referred by Dr. Elskins regarding brainstem MRI changes. History of Present Illness The patient has a long and complex history. He has a history of melanoma of his nose which was exciseed 12 to 13 years ago and felt to be cured. 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 Connor Fields the time he had multiple lymph node dissections of up to [address] James henry. Again he was felt to be cured with no radiation chemotherapy administered. Back 2 months ago he started to having brain fog and bilateral tinnitus. He went to the ER was told he had a sinus infection. He was started on antibiotics and steroids with some improvement of the symptoms. Once the antibiotic stopped he never got fever or neck stiffness but when the steroid stopped he went back to his baseline which was worse. MRI showed abnormal signal in the naldo and he sent to me in consultation. He has mild headaches but denies weakness numbness or seizure. He saw Dr. Ba a neurologist in [facility]. He describes his vision as seeing 1-1/2 . He describes this does not seem quite to but finding a time lab between moving his eyes and having the visual change. Review of Systems Constitutional - no fever, no chills, no recent weight gain and no recent weight loss. Eyes - no blurred vision, no floaters, no unilateral loss of vision and no tunnel vision. ENT - no hearing loss, no nosebleeds, no dysphagia and no hoarseness. Cardiovascular - no chest pain, no chest pressure and no palpitations. Respiratory - no shortness of breath, no shortness of breath during exertion, no asthma, no cough and no hemoptysis. Gastrointestinal - no abdominal pain, no constipation, no heartburn, no nausea, no vomiting, no change in bowel movement, no diarrhea and no blood in stools. Genitourinary - no dysuria and no hematuria. Integumentary - no pressure wounds and is not slow to heal. Psychiatric - no suicidal ideations. Endocrine - no proptosis, heat or cold intolerance, no polydipsia, no polyuria, no abnormal was observed, no deepening of the voice and no hot flashes. Hematologic/Lymphatic - no swollen glands, no thrombophlebitis, no anemia, no tendency for easy bleeding, no tendency for easy bruising and no blood transfusion. Negative for complaint - All other systems have been reviewed and are negative for complaint. 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) Thyroid nodule (241.0) (E04.1) Weight loss (783.21) (R63.4) Past Medical History Problems History of squamous cell carcinoma (V10.89) (Z85.89) Surgical History Problems History of Excision melanoma Family History Father Family history of malignant neoplasm of urinary bladder (V16.52) (Z80.52) Social History Problems Cigarette smoker (305.1) (F17.210) Former consumption of alcohol (V11.3) (Z87.898) Allergies Medication Keflex Recorded By: Ana Galvez; 12/31/2018 4:19:20 PM Current Meds Medication NameInstruction Aspirin 81 MG TABS Atorvastatin Calcium 10 MG Oral Tablet Divalproex Sodium ER 250 MG Oral Tablet Extended Release 24 Hour tiZANidine HCl - 4 MG Oral Tablet Vitals Vital Signs Recorded: [id number] 09:38AM Khthjuvvwrl12.2 F Heart Rate63 Niqsrlpprdi79 Ewhzipra627 Idhayntak46 Blood Pressure Cuff SizeAdult Height5 ft 7.13 in Ajwaqk196 lb 6 oz BMI Tpqkumcfsr61.05 kg/m2 BSA Calculated1.91 Tobacco Usea) Yes Fall Screeninga) No falls within the last year O2 Ldimwctcdh95 Pain Scale7 Ph (more content not included)... Normal [facility] COVID + FLU Quick Testingon 06-30-2021 SARS-CoV-2 (COVID-19) RNA JER+probe Ql (Unsp spec) Negative [facility] Other COVID + FLU Quick Testing Negative [facility] Other COVID Quick Testingon 2020 Result Negative [facility] Other Basophils Auto (Bld) [#/Vol] on 09-20-2020 Basophils (Bld) [#/Vol] 0.0 10*3/uL 0.0-0.2 [facility] Basophils/100 WBC Auto (Bld) on 09-20-2020 Basophils/100 WBC (Bld) 0.6 % [facility] Blood hemoglobin measurement (mass/volume)on 09-20-2020 Hemoglobin (Bld) [Mass/Vol] 14.4 g/dL 13.0-17.0 [facility] Blood leukocytes automated c ount (number/volume)on 09-20-2020 WBC (Bld) [#/Vol] 7.4 10*3/uL 4.5-11.0 [facility] Eosinophils Auto (Bld) [#/Vo l]on 09-20-2020 Eosinophils (Bld) [#/Vol] 0.1 10*3/uL 0.0-0.45 [facility] Eosinophils/100 WBC Auto (Bl d)on 09-20-2020 Eosinophils/100 WBC (Bld) 0.9 % [facility] Erythrocyte distribution wid th Auto (RBC) [Ratio]on 09-20-2020 Erythrocyte distribution width (RBC) [Ratio] 14.6 % 12.0-14.8 [facility] Hematocrit Auto (Bld) [Volum e fraction]on 09-20-2020 Hematocrit (Bld) [Volume fraction] 41.7 % 38.8-50.0 [facility] Lymphocytes Auto (Bld) [#/Vo l]on 09-20-2020 Lymphocytes (Bld) [#/Vol] 1.6 10*3/uL 1.00-4.8 [facility] Lymphocytes/100 WBC Auto (Bl d)on 09-20-2020 Lymphocytes/100 WBC (Bld) 21.3 % [facility] MCH Auto (RBC) [Entitic mass ]on 09-20-2020 MCH (RBC) [Entitic mass] 32.4 pg 27.5-35.2 [facility] MCHC Auto (RBC) [Mass/Vol]on 09-20-2020 MCHC (RBC) [Mass/Vol] 34.5 g/dL 32.5-35.6 [facility] MCV Auto (RBC) [Entitic vol] on 09-20-2020 MCV (RBC) [Entitic vol] 93.9 fL 83.5-101 [facility] Monocytes Auto (Bld) [#/Vol] on 09-20-2020 Monocytes (Bld) [#/Vol] 0.6 10*3/uL 0.0-0.8 [facility] Monocytes/100 WBC Auto (Bld) on 09-20-2020 Monocytes/100 WBC (Bld) 8.6 % [facility] Neutrophils Auto (Bld) [#/Vo l]on 09-20-2020 Neutrophils (Bld) [#/Vol] 5.1 10*3/uL 1.8-7.7 [facility] Neutrophils/100 WBC Auto (Bl d)on 09-20-2020 Neutrophils/100 WBC (Bld) 68.6 % [facility] Otheron 09-20-2020 Nucleated RBC/100 WBC (Bld) [Ratio] 0.0 % 0-0.5 [facility] Platelet mean volume Auto (B ld) [Entitic vol]on 09-20-2020 Platelet mean volume (Bld) [Entitic vol] 9.3 fL 6.6-10.1 [facility] Platelets Auto (Bld) [#/Vol] on 09-20-2020 Platelets (Bld) [#/Vol] 182 10*3/uL 150-450 [facility] RBC Auto (Bld) [#/Vol]on RBC (Bld) [#/Vol] 4.44 10*6/uL 3.90-5.60 [facility] Body fluid albumin measureme nt (mass/volume)on 09-13-2020 Albumin (Body fld) [Mass/Vol] 4.3 g/dL 3.2-5.5 [facility] Cholesterol [Mass/volume] in Serum or Plasmaon 09-13-2020 Cholesterol [Mass/Vol] 219 mg/dL 140-200 [facility] Comment on above: Chol less than 200 m g/dl low riskChol 201-239 mg/dl borderline riskChol 240 mg/dl and greater high risk Cholesterol in LDL Calc [Mas s/Vol]on 09-13-2020 Cholesterol in LDL [Mass/Vol] 149 mg/dL 0-100 [facility] Comment on above: LDL ATP III CLASSIFI CATIONLDL less than 100 mg/dL OptimalLDL 100-129 mg/dL Near or above optimalLDL 130-159 mg/dL Borderline highLDL 160-189 mg/dL HighLDL greater than 189 mg/dL Very high Cholesterol in VLDL Calc [Ma ss/Vol]on 09-13-2020 Cholesterol in VLDL [Mass/Vol] 28 mg/dL [facility] Creatinine and Glomerular fi ltration rate.predicted panel (S/P/Bld)on 09-13-2020 Creatinine [Mass/Vol] 0.89 mg/dL 0.64-1.27 [facility] GFR/1.73 sq M.predicted roverto g non-blacks MDRD (S/P/Bld) [Vol rate/Area]on 09-13-2020 GFR/1.73 sq M predicted among non-blacks MDRD (S/P/Bld) [Vol rate/Area] > 60 mL/Min [facility] Globulin Calc (S) [Mass/Vol] on 09-13-2020 Globulin (S) [Mass/Vol] 2.0 g/dL [facility] No Panel Informationon 09-13 Estimated GFR () > 60 mL/Min [facility] Comment on above: GFR estimated refere nce range: According to KDOQI guidelines, <60 ml/min/1.73m2 is sufficient to diagnose a patient with chronic kidney disease. Otheron 09-13-2020 GFR/1.73 sq M.predicted MDRD (S/P/Bld) [Vol rate/Area] > 60 mL/Min [facility] Comment on above: GFR estimated refere nce range: According to KDOQI guidelines, <60 ml/min/1.73m2 is sufficient to diagnose a patient with chronic kidney disease. Pharmacy Creatinine Clearance (Chem N/A [facility] Prostate Specific Antigen Screen 0.480 ng/mL 0.000-4.00 0 [facility] Protein [Mass/volume] in Ser um or Plasmaon 09-13-2020 Protein [Mass/Vol] 6.3 g/dL 6.1-7.9 [facility] SARS-CoV-2 (COVID-19) IgG Ab [Presence] in Serum or Plasma by Immunoassayon 09-13-2020 SARS-CoV-2 (COVID-19) IgG Ab [Presence] in Serum or Plasma by Immunoassay Positive Negative [facility] Comment on above: Results suggest rece nt or prior infection with SARS-CoV-2.Correlation with epidemiologic risk factors and otherclinical and laboratory findings is recommended. Serologicresults should not be used as the sole basis to diagnose orexclude recent SARS-CoV-2 infection. False positive resultsinfrequently occur due to prior infection with other humanCoronaviruses.This assay was performed using the [employer](R)SARS-CoV-2 S1/S2 IgG assay.This assay detects antibodies against SARS-CoV-2 spikeprotein including the receptor binding domain (RBD).Performed at: [facility] [address] [id number] Director: Florencio Wu PhD, Phone: [phone] SARS-CoV-2 (COVID-19) IgG IA Ql Positive Negative [facility] Comment on above: Results suggest rece nt or prior infection with SARS-CoV-2.Correlation with epidemiologic risk factors and otherclinical and laboratory findings is recommended. Serologicresults should not be used as the sole basis to diagnose orexclude recent SARS-CoV-2 infection. False positive resultsinfrequently occur due to prior infection with other humanCoronaviruses.This assay was performed using the [employer](R)SARS-CoV-2 S1/S2 IgG assay.This assay detects antibodies against SARS-CoV-2 spikeprotein including the receptor binding domain (RBD).Performed at: [facility] [address] [id number] Director: Florencio Wu PhD, Phone: [phone] Serum or plasma alanine mclaughlin otransferase measurement without P-5'-P (enzymatic activion 09-13-2020 ALT No additional P-5'-P [Catalytic activity/Vol] 19 U/L 10-60 [facility] Serum or plasma albumin/glob ulin mass ratioon 09-13-2020 Albumin/Globulin [Mass ratio] 2.2 {ratio} [facility] Serum or plasma alkaline fuentes sphatase measurement (enzymatic activity/volume)on 09-13-2020 ALP [Catalytic activity/Vol] 53 U/L 32-92 [facility] Serum or plasma aspartate am inotransferase measurement (enzymatic activity/volume)on 09-13-2020 AST [Catalytic activity/Vol] 22 U/L 10-42 [facility] Serum or plasma calcium paramjit urement (mass/volume)on 09-13-2020 Calcium [Mass/Vol] 9.1 mg/dL 8.2-10.2 [facility] Serum or plasma chloride robby surement (moles/volume)on 09-13-2020 Chloride [Moles/Vol] 105 mmol/L 95-114 [facility] Serum or plasma glucose paramjit urement (mass/volume)on 09-13-2020 Glucose [Mass/Vol] 97 mg/dL 70-100 [facility] Comment on above: ADA recommended refe rence rangeRandom Glucose Reference Range is dependent on time and content of last meal. Glucose of more than 200 mg/dL in a nonstressed, ambulatory subject supports the diagnosis of Diabetes Mellitus. Serum or plasma high density lipoprotein (HDL) cholesterol measurementon 09-13-2020 Cholesterol in HDL [Mass/Vol] 41 mg/dL - [facility] [place] Comment on above: HDL CHOL ATP-III CLA SSIFICATION Cardiovascular RiskHDL > or equal to 60 mg/dL LOWHDL < 40 mg/dL HIGH Serum or plasma potassium me asurement (moles/volume)on 09-13-2020 Potassium [Moles/Vol] 4.2 mmol/L 3.5-5.1 [facility] Serum or plasma sodium measu rement (moles/volume)on 09-13-2020 Sodium [Moles/Vol] 135 mmol/L 136-146 [facility] Serum or plasma thyroid stim ulating hormone (TSH) measurement by high sensitivity meton 09-13-2020 TSH Qn 1.66 u[iU]/mL 0.45-5.33 [facility] [place] Serum or plasma total biliru bin measurement (mass/volume)on 09-13-2020 Bilirubin [Mass/Vol] 0.9 mg/dL 0.3-1.2 [facility] Serum or plasma total carbon dioxide measurement (moles/volume)on 09-13-2020 CO2 [Moles/Vol] 22.5 mmol/L 22.0-30.0 [facility] Serum or plasma total choles terol/high density lipoprotein (HDL) cholesterol mass gia 09-13-2020 Cholesterol.total/Chol esterol in HDL [Mass ratio] 5.3 {ratio} [facility] [place] Serum or plasma urea nitroge n measurement (mass/volume)on 09-13-2020 Urea nitrogen [Mass/Vol] 12 mg/dL 9-23 [facility] [place] TSH DL <= 0.005 mIU/L Qnon 0 09-13-2020 TSH Qn 1.66 m[IU]/L 0.45-5.33 [facility] [place] Triglyceride [Mass/volume] i n Serum or Plasmaon 09-13-2020 Triglyceride [Mass/Vol] 144 mg/dL 35-149 [facility] [place] Comment on above: TRIG ATP III CLASSIF ICATIONTRIG less than 150 mg/dL NormalTRIG 150-199 mg/dL Borderline highTRIG 200-500 mg/dL High TRIG greater than 500 mg/dL Very highStandard traceable to the Center for Disease Conrtrol and Prevention (CDC) test method. History and Physicalon 04-18 History and Physical HOSPITAL REGULATION S: ALL Positive Important Negative Findings Shall Be Recorded DATE ADMITTED: 04/14/2019 The patient is a 58 year old male with a long history of slowly decreasing visual acuity in his left eye. He has reached the point where he is now having difficulty driving at night as a result of halos and difficulty reading road signs. Both the patient and I are under the hope and expectation that cataract surgery with lens implantation will make these tasks easier for him in the future. He has been advised of the risks, benefits, complications and alternatives to cataract surgery with lens implantation, and he has given informed consent for the procedure. PAST MEDICAL HISTORY: Non-contributory. CURRENT MEDICATIONS: 1. Wellbutrin. 2. Gabapentin. 3. Citalopram. ALLERGIES: Keflex. PHYSICAL EXAMINATION GENERAL: A healthy alert male in no distress, blood pressure of 120/80, pulse of 62, and respirations of 13 CHEST: Clear. CARDIOVASCULAR: Regular rhythm and rate. ABDOMEN: The belly is soft and non-tender. EXTREMITIES: Clear. EYES: The eyes have a visual acuity of 20/25 in the right eye and 20/70 in the left eye. The slit lamp examination is remarkable for a 3+ anterior and posterior subcapsular cataract in the left eye. Dilated funduscopic examination reveals a normal optic nerve, retina and vasculature. IMPRESSION: Visually significant cataract, left eye. PLAN: Cataract extraction with lens implantation, left eye. Coleen Grajeda M.D. aek Dictated: 04/14/2019 #[id number] Typed 04/14/2019 #[id number] cc: Coleen Grajeda M.D. [facility] Comment on above: Result Comment: Elec tronically Signed By: Taras NORRIS, Coleen Chen.br\Date and Time Signed: 04/18/19 09:54 EDT Operative Reporton 9 Operative Report Date of Surgery: 04/14/2019 SURGEON: Coleen Grajeda M.D. PREOPERATIVE DIAGNOSIS: Cataract, left eye POSTOPERATIVE DIAGNOSIS: Cataract, left eye OPERATION: Phacoemulsification cataract extraction with intraocular lens implantation with a 21.0 diopter lens, left eye ANESTHESIA: Topical 2% lidocaine gel PROCEDURE: The patient was brought to the Operating Room and a 2% topical lidocaine gel was placed into the superior and inferior fornices of the eye. A My Visual Briefan manometer was set on the eye at 20 mmHg for fifteen minutes. The eye was then prepped and draped in the usual sterile ophthalmic fashion. Meticulous care was taken to ensure that the Betadine Prep was flushed into the superior and inferior fornices of the eye as well as meticulously cleansed the lid margin and lash bases, then flushed with saline. A speculum was placed into the superior and inferior fornices. A Super Sharp blade was used to create a 1 mm corneal incision at the limbus near the 2 o'clock position. 1% non-preserved lidocaine was injected into the anterior chamber through this incision, approximately 0.75 mL. A 2.65 mm keratome was then used to create a shelved corneal incision. Viscoelastic material replaced the aqueous. A capsular forceps was then used to create a 360 degree continuous tear anterior capsulotomy. Hydrodissection was carried out with balanced salt solution. The phacoemulsification unit on sculpt mode was then placed into the eye and the lens was fractured into four separate fragments. The phacoemulsification unit was then advanced to the sector removal mode and the four nuclear fragments were removed at the iris plane under minimal phaco power in order to achieve complete nuclear removal. The irrigating/ aspirating unit was then placed into the posterior chamber and the remaining cortical material was stripped free from the posterior capsule. The capsular bag was inflated with viscoelastic material. A foldable intraocular lens was then placed with the haptics into the capsular bag. The lens was rotated in order to bring the haptics to the 3 o'clock and 9 o'clock position. The viscoelastic agent was removed with the irrigating/aspirating unit. Miochol was injected into the anterior chamber and symmetrical miosis was noted. The intraocular pressure was brought up to normal with balanced salt solution. The corneal incision was then hydrated using a 30 gauge cannula of balanced salt solution at the limbal incision at 11 o'clock and at the 2 o'clock position. The incision was checked and found to be watertight. A minimal amount of aqueous was then drained from the incision and an intraocular injection of antibiotic, moxifloxacin diluted in the pharmacy to the appropriate strength was irrigated into the posterior chamber, just anterior to the intraocular lens. Betadine solution was then used to bathe the surface of the globe, cornea, conjunctiva, and fornices, and rinsed with saline. Iopidine eye drops and TobraDex ointment were placed into the inferior fornix. A patch and shield were taped over the eye. The patient returned to the Recovery Room in good condition. Coleen Grajeda M.D. gls Dictated: 04/14/2019 #[id number] Typed: 04/15/2019 #[id number] cc: Coleen Grajeda M.D. [facility] Comment on above: Result Comment: Elec tronically Signed By: Coleen Grajeda MD.br\Date and Time Signed: 04/18/19 09:54 EDT Coding Summary.on 04-15-2019 Coding Summary. CODING DATE: 019 [facility] STATUS: Home (Routine DC) PAYOR: Commercial Insurance APC DESCRIPTION 5491 Level 1 Intraocular Procedures ADMIT DX: REASON FOR VISIT DX: H25.032 Anterior subcapsular polar age-related cataract, left eye FINAL DX: PRINCIPAL: H25.032 Anterior subcapsular polar age-related cataract, left eye SECONDARY: H25.042 Posterior subcapsular polar age-related cataract, left eye PYMT PROC APC STAT DESCRIPTION DOCTOR NAME DATE 36918 5491 J1 Extracapsular cataract Coleen Grajeda MD 04/14/2019 removal with insertion of intraocular lens prosthesis (1 stage procedure), manual or mechanical technique (eg, irrigation and aspiration or phacoemulsification) LT Left side (used to identify procedures performed on the left side of the body) NOTE: The code number assigned matches the documented diagnosis and / or procedure in the patient's chart. However, the narrative phrase printed from the coding software may appear abbreviated, or result in slightly different terminology. Revised Coded By: Araceli Mckenna Revised Date Saved: 04/15/2019 10:00 am Normal [facility] Main OR Intraoperative Recor don 04-15-2019 Main OR Intraoperative Record IntraOp Document Type FT Summary Primary Physician: Coleen Grajeda MD Finalized Date/Time: 04/15/19 14:44:33 Pt. Name: JOVANI MELENDEZ./Sex: 1960 Male Med Rec #: [id number] Physician: Coleen Grajeda MD Financial #: [id number] Pt. Type: A Room/Bed: [place] [address] Admit/Disch: 04/14/19 12:59:00 - 04/14/19 16:00:00 Institution: Case Times FT Entry 1 Patient Times In Room 04/14/19 14:55:00 Out Room 04/14/19 15:17:00 Procedure Times Start 04/14/19 15:03:00 Stop 04/14/19 15:14:00 Anesthesia Times Last Modified By: Asya Alves CST 04/14/19 15:16:26 General Comments: 04/15/19 Chart opened to review and send charges Avinash Alves CST Case Attendance FT Entry 1 Entry 2 Entry 3 Case Attendee Coleen Grajeda MD, CST, Jennifer Tinker RN, Johnathon Mullins Role Performed Surgeon - Primary Scrub - Primary Meal Cook - Primary Time In 04/14/19 14:55:00 04/14/19 14:55:00 04/14/19 15:00:00 Time Out 04/14/19 15:17:00 04/14/19 15:17:00 04/14/19 15:17:00 Procedure CATARACT EXTRACTION W/ CATARACT EXTRACTION W/ CATARACT EXTRACTION W/ INTRAOCULAR LENS(Left) INTRAOCULAR LENS(Left) INTRAOCULAR LENS(Left) Comments Last Modified By: Sachi VERNON, Johnathon Karimi RN, Johnathon Hurtado RN 04/14/19 15:16:27 04/14/19 15:16:27 04/14/19 15:16:27 Entry 4 Entry 5 Case Attendee Omar VERNON, Pauly GOODEN, RN, Tierra Role Performed Meal Cook - Primary Meal Cook - Relief Time In 04/14/19 14:55:00 04/14/19 14:55:00 Time Out 04/14/19 15:17:00 04/14/19 15:00:00 Procedure CATARACT EXTRACTION W/ CATARACT EXTRACTION W/ INTRAOCULAR LENS(Left) INTRAOCULAR LENS(Left) Comments Last Modified By: Sachi VERNON, Johnathon Hurtado RN 04/14/19 15:16:27 04/14/19 15:16:27 Perioperative Protocols FT Pre-Care Text: Implements protective measures prior to operative or invasive procedure, confirms identity before the operative or invasive procedure, verifies operative procedure, surgical site, and laterality Entry 1 Procedure(s) CATARACT EXTRACTION W/ Patient Identity Birthday, ID Band INTRAOCULAR LENS(Left) Verified (select at Check, Patient least 2): Participation Consents / H and P HandP, Surgery/Procedure Operative Site Present Verified Consent Marking Verified Surgical Site Yes Laterality Verified Yes Verified Procedure Verified Yes Correct Patient Yes Position Verified Availability Equipment, Implant, Prep Dry n/a Verified (If Medication Applicable) PreOp Antibiotic No Time Out Taras NORRIS, Coleen Mullins, Given Participants Asya Alves CST, Tinker RN, Omar Motley RN, Pauly Da Silva Time Out Complete 04/14/19 15:01:00 Outcomes Met? Yes Last Modified By: Johnathon Kariim RN 04/14/19 15:02:01 Post-Care Text: The patient is free from signs and symptoms of injury caused by extraneous objects Allergy Information FT Pre-Care Text: Verifies allergies Entry 1 Allergies Reviewed? Yes Allergies Reviewed Self/Patient With Outcomes Met? Yes Last Modified By: Johnathon Karimi RN 04/14/19 15:02:08 Post-Care Text: The patient received appropriate medication(s) safely administered during the perioperative period Surgical Procedures FT Entry 1 Procedure Description Procedure CATARACT EXTRACTION W/ Modifiers Left INTRAOCULAR LENS IMPLANTATION Surgeon Description LEFT CATARACT EXTRACTION W/ INTRAOCULAR LENS IMPLANTATION Primary Procedure Yes Primary Surgeon Coleen Grajeda MD Start 04/14/19 15:03:00 Stop 04/14/19 15:14:00 Anesthesia Type Local Surgical Service Ophthalmology Wound Class 1 - Clean Last Modified By: Johnathon Karimi RN 04/14/19 15:16:30 General Case Data FT Pre-Care Text: Classifies surgical wound, implements aseptic technique, initiates traffic control Entry 1 Case Information OR OR 3 FT Case Level Level 2 Wound Class 1 - Clean Specialty Ophthalmology Preop Diagnosis CATARACT LEFT EYE Postop Same As Preop Yes Postop Diagnosis CATARACT LEFT EYE Outcomes Met? Yes Last Modified By: Johnathon Karimi RN 04/14/19 15:02:27 Post-Care Text: The patient is free from signs and symptoms of infection Skin Assessment (Pre Procedure) FT Pre-Care Text: Implements protective measures to prevent skin/ tissue injury due to thermal or mechanical sources Evaluates for signs and symptoms of physical injury to skin and tissue Entry 1 Skin Integrity Unable to Visualize, Outcomes Met? Yes Warm, Mcintire, Dry Last Modified By: Johnathon Karimi RN 04/14/19 15:02:52 Post-Care Text: The patient is free from signs and symptoms of injury caused by extraneous objects General Comments: pt partially clothed, unable to assess all of skin/ ant vernon Patient Positioning FT Pre-Care Text: Identifies physical alterations that require additional precautions for procedure-specific positioning, verifies presence of prosthetics or corrective devices, positions the patient, evaluates the patient for signs and symptoms of injury as a result of positioning Entry 1 Procedure CATARACT EXTRACTION W/ Additional folded towel under INTRAOCULAR LENS(Left) Information head, procedure performed on eye cart, side rails up Body Position Supine Feet Uncrossed? Yes Left Arm Position Resting at Side Right Arm Position Resting at Side Left Leg Position Extended Right Leg Position Extended Positioning Device Pillow Large Under Knees Press Points Checked Yes By Johnathon Karimi RN Outcomes Met? Yes Last Modified By: Johnathon Karimi RN 04/14/19 15:03:18 Post-Care Text: The patient is free from signs and symptoms of injury related to positioning Patient Care Devices FT Pre-Care Text: Implements protective measures to prevent skin/ tissue injury due to thermal or mechanical sources Entry 1 Entry 2 Entry 3 Equipment Type MICROSCOPE EYE[F] MONITOR CHARGE SURGERY PHACO UNIT[F] [F] Equipment Number Equipment Setting Outcomes Met? Yes Yes Yes Last Modified By: Johnathon Karimi RN, RN, Johnathon Hurtado RN 04/14/19 15:03:31 04/14/19 15:03:31 04/14/19 15:03:31 Post-Care Text: The patient is free from signs and symptoms of injury caused by extraneous objects Transport To OR FT Pre-Care Text: Transports according to individual needs. Evaluates for signs and symptoms of skin and tissue injury as a result of transfer or transport Entry 1 Via Cart By Patrick MYERS, RN, Tierra Safety Precautions Side Rails Up Outcomes Met? Yes Last Modified By: Johnathon Karimi RN 04/14/19 15:03:41 Post-Care Text: The patient is free from signs and symptoms of injury related to transfer/transport Counts Verification FT Pre-Care Text: Performs required counts Entry 1 Entry 2 Procedure(s) CATARACT EXTRACTION W/ CATARACT EXTRACTION W/ INTRAOCULAR LENS(Left) INTRAOCULAR LENS(Left) Type Initial Final Items Instruments Instruments Status Correct Correct Time By Asya Alves CST, CST, Jennifer Outcomes Met? Yes Yes Last Modified By: Sachi VERNON, Johnathon Hurtado RN 04/14/19 15:04:54 04/14/19 15:04:54 Post-Care Text: The patient is free from signs and symptoms of injury caused by extraneous objects Skin Prep FT Pre-Care Text: Performs skin preparations Entry 1 Procedure CATARACT EXTRACTION W/ Prep Area operative site, left eye INTRAOCULAR LENS(Left) Prep Agents Betadine Solution, Saline Rinse Hair Removal Methods Not Indicated By Coleen Grajeda MD Outcomes Met? Yes Last Modified By: Johnathon Karimi RN 04/14/19 15:05:09 Post-Care Text: The patient is free from signs and symptoms of infection Departure From OR FT Pre-Care Text: Transports according to individual needs. Evaluates for signs and symptoms of skin and tissue injury as a result of transfer or transport. Entry 1 Via Cart Safety Precautions Side Rails Up PostOp Destination Pre Surgery/ASU Transported By Johnathon Karimi RN Patient Status Stable Skin. Condition Warm, Mcintire, Dry Description unchanged Airway Maintenance Oxygen in Use? No Outcomes Met? Yes Last Modified By: Johnathon Karimi RN 04/14/19 15:07:48 Post-Care Text: The patient is free from signs and symptoms of injury related to transfer/transport General Comments: asu called, transported to asu by or transporter/ ant rn Dressing/Packing FT Pre-Care Text: Administers care to wound sites Entry 1 Type Dressing Site and Details left eye with eye patch, shield and paper tape Outcomes Met? Yes Last Modified By: Johnathon Karimi RN 04/14/19 15:08:06 Post-Care Text: The patient is free from signs and symptoms of infection Medication Administration FT Pre-Care Text: Verifies allergies, administers prescribed medications and solutions, administers prescribed antibiotic therapy and immunizing agents as ordered, evaluates response to medications Administers prescribed medications and solutions Entry 1 Expiration Date Yes Outcomes Met? Yes Verified Last Modified By: Johnathon Karimi RN 04/14/19 15:08:13 Post-Care Text: The patient received appropriate medication(s) safely administered during the perioperative period For Rodas-Treutlen please see scanned medication reconcilliation form for medications used at the field during the procedure. Implant Log FT Pre-Care Text: Records devices implanted during the operative or invasive procedure Entry 1 Procedure CATARACT EXTRACTION W/ Implant/Explant Implant INTRAOCULAR LENS(Left) Implant Identification FT Description MONTY IOL [id number] SOFPORT Serial Number [id number] SIZE 21.0 [[id number] 21.0][F] Lot Number [id number] [employer] FT-[employer] Catalog ?# [id number] 21.0[F] Expiration Date 10/16/23 Unique Device [id number] Identifier (BERNARD) Usage Data FT Implant Site Eye L Quantity 1 Implant/Explant Date 04/14/19 15:09:00 Implanted By Coleen Grajeda MD Biological Implants MR Classification Unknown Outcomes Met? Yes Last Modified By: Johnathon Karimi RN 04/14/19 15:09:49 Post-Care Text: The patient is free from signs and symptoms of injury caused by extraneous objects Case Comments Finalized By: Asya Alves CST Document Signatures Signed By: Johnathon Karimi RN 04/14/19 15:16 Asya Alves CST 04/15/19 14:44 Normal [facility] Inpatient Patient Summaryon 04-14-[address] [facility] Clinical Discharge Instructions PERSON INFORMATION Name: JOVANI MELENDEZ PHYSICIANS Admitting Physician: Coleen Grajeda MD Attending Physician: Coleen Grajeda MD PCP: JILLIAN BARONE DO Diagnosis: Cataract Comment: PATIENT EDUCATION INFORMATION Instructions: Medication Leaflets: Follow up: With: Address: When: Coleen Grajeda [address], [place] [address] Business (1) Comments: Call physician if symptoms worsen Keep scheduled appointment MEDICATION LIST Comment: Normal [facility] Main OR PACU II [facility] Main OR PACU II Record PACU Phase II Doc ument Type FT Summary Primary Physician: Coleen Grajeda MD Finalized Date/Time: 04/14/19 17:54:42 Pt. Name: JOVANI MELENDEZ /Sex: 1960 Male Med Rec #: [id number] Physician: Coleen Grajeda MD Financial #: [id number] Pt. Type: A Room/Bed: [place] [address] Admit/Disch: 04/14/19 12:59:23 - Institution: Case Times PACU II FT Pre-Care Text: Identifies barriers to communication and implements measures to provide psychological support and determines knowledge level Develops individualized plan of care, and ensures continuity of care Maintains patient's dignity and privacy, and maintains patient confidentiality Identifies and reports philosophical, cultural, and spiritual beliefs and values Identifies individual values and wishes concerning care administers prescribed antibiotic therapy and immunizing agents as ordered, Evaluates postoperative tissue perfusion Implements thermoregulation measures, and monitors body temperature Evaluates postoperative respiratory status Evaluates postoperative cardiac status Evaluates postoperative neurological status Assesses pain control, collaborated in initiating patient-controlled analgesia and implements alternative methods of pain control Verifies allergies, administers prescribed medications and solutions, evaluates response to medications Entry 1 In PACU II 04/14/19 15:20:00 Discharge from PACU 04/14/19 16:00:00 II Outcomes Met? Yes Last Modified By: Lizeth Rush RN 04/14/19 17:54:41 Post-Care Text: The patient demonstrates knowledge of the expected response to the operative or invasive procedure The patient's care is consistent with the individualized perioperative plan of care The patient's right to privacy is maintained The patient's value system, lifestyle, ethnicity, and culture are considered, respected, and incorporated into the perioperative plan of care The patient participates in decisions affecting his or her perioperative plan of care. The patient is free from signs and symptoms of infection The patient has wound/tissue perfusion consistent with or improved from baseline levels established preoperatively The patient is at or returning to normothermia at the conclusion of the immediate postoperative period The patient's respiratory function is consistent with or improved from baseline levels established preoperatively The patient's cardiovascular status is consistent with or improved from baseline levels established preoperatively The patient's neurological status is consistent with or improved from baseline levels established preoperatively The patient demonstrates and/or reports adequate pain control throughout the perioperative period The patient received appropriate medication(s), safely administered during the perioperative period Finalized By: Lizeth Rush RN Document Signatures Signed By: Lizeth Rush RN 04/14/19 17:54 Normal [facility] Main OR Preoperative Recordo n 04-14-2019 Main OR Preoperative Record PreOp Document Type FT Summary Primary Physician: Coleen Grajeda MD Finalized Date/Time: 04/14/19 15:14:03 Pt. Name: JOVANI MELENDEZ/Sex: 1960 Male Med Rec #: [id number] Physician: Coleen Grajeda MD Financial #: [id number] Pt. Type: A Room/Bed: [place] [address] Admit/Disch: 04/14/19 12:59:23 - Institution: Case Times PreOp FT Pre-Care Text: Verifies consent for planned procedure, identifies individual values and wishes concerning care, includes family members in perioperative teaching Entry 1 Patient Times. In Pre Surgery 04/14/19 13:05:00 Out Pre Surgery 04/14/19 14:53:00 Outcomes Met? Yes Last Modified By: Johnathon Karimi RN 04/14/19 15:14:00 Post-Care Text: The patient participates in decisions affecting his or her perioperative plan of care Finalized By: Johnathon Karimi RN Document Signatures Signed By: Johnathon Karimi RN 04/14/19 15:14 Normal [facility] Patient Education - Texton 1 Patient Education - Text Normal [facility] Vital Signs Date Time Vital Sign Value Performing Clinician Facility 08-02-2023 13:11-0500 Body height 172.72 cm DO Griselda Kuns Work Phone: [facility] 08-02-2023 13:11-0500 Body mass index (BMI) [Ratio] 27.9 kg/m2 DO Griselda Kuns Work Phone: [facility] 08-02-2023 13:11-0500 Body weight 83.46 kg DO Griselda Kuns Work Phone: [facility] 08-02-2023 13:11-0500 Diastolic blood pressure 70 mm[Hg] DO Griselda Kuns Work Phone: [facility] 08-02-2023 13:11-0500 Heart rate 68 /min DO Griselda Kuns Work Phone: [facility] 08-02-2023 13:11-0500 Respiratory rate 16 /min DO Griselda Kuns Work Phone: [facility] 08-02-2023 13:11-0500 SaO2% (BldA) [Mass fraction] 97 % DO Griselda Kuns Work Phone: [facility] 08-02-2023 13:11-0500 Systolic blood pressure 130 mm[Hg] DO Griselda Kuns Work Phone: [facility] 07-02-2023 09:30-0500 Body height 172.72 cm [employer] ([employer]) Other [facility] 07-02-2023 09:30-0500 Body mass index (BMI) [Ratio] 28.28 kg/m2 [employer] ([employer] Other [facility] Other 07-02-2023 09:30-0500 Body weight 84.37 kg Griselda Kuns Other [facility] Other 07-02-2023 09:30-0500 Body weight 84.36 kg DO Griselda Kuns Work Phone: [facility] 07-02-2023 09:30-0500 Diastolic blood pressure 92 mm[Hg] Griselda Kuns Other [facility] 07-02-2023 09:30-0500 Respiratory rate 16 /min Griselda Kuns Other [facility] [employer] Other 07-02-2023 09:30-0500 SaO2% (BldA) [Mass fraction] 97 % Griselda Kuns Other [facility] [employer] Other 07-02-2023 09:30-0500 Systolic blood pressure 160 mm[Hg] Griselda Kuns Other [facility] 05-31-2023 13:45-0500 Body height 172.72 cm Griselda Kuns Other [facility] 05-31-2023 13:45-0500 Body mass index (BMI) [Ratio] 27.37 kg/m2 Griselda Kuns Other [facility] [employer] Other 05-31-2023 13:45-0500 Body weight 81.65 kg Griselda Kuns Other [facility] [employer] Other 05-31-2023 13:45-0500 Body weight 81.64 kg DO Griselda Kuns Work Phone: [facility] 05-31-2023 13:45-0500 Diastolic blood pressure 80 mm[Hg] Griselda Kuns Other [facility] 05-31-2023 13:45-0500 Respiratory rate 18 /min Griselda Krause Other [facility] [employer] Other 05-31-2023 13:45-0500 SaO2% (BldA) [Mass fraction] 98 % Griselda Krause Other [facility] [employer] Other 05-31-2023 13:45-0500 Systolic blood pressure 120 mm[Hg] Griselda Krause Other [facility] 05-30-2023 11:15-0500 Body height 172.72 cm Ruddy Harvey Other [facility] 05-30-2023 11:15-0500 Body mass index (BMI) [Ratio] 27.52 kg/m2 Ruddy Harvey Other [facility] [employer] Other 05-30-2023 11:15-0500 Body temperature 97.8 [degF] Ruddy Wes Other [facility] [employer] Other 05-30-2023 11:15-0500 Body weight 82.1 kg Ruddy Harvey Other [facility] 05-30-2023 11:15-0500 SaO2% (BldA) [Mass fraction] 98 % Ruddy Harvey Other [facility] [employer] Other 05-15-2023 13:20-0500 Body height 172.72 cm Lilliam Cason Other [facility] 05-15-2023 13:20-0500 Body mass index (BMI) [Ratio] 27.52 kg/m2 Lilliam Kamla Other [facility] Other 05-15-2023 13:20-0500 Body weight 82.1 kg Lilliam Cason Other [facility] 05-15-2023 13:20-0500 Diastolic blood pressure 84 mm[Hg] Lilliam Cason Other [facility] 05-15-2023 13:20-0500 Respiratory rate 18 /min Lilliam Cason Other [facility] Other 05-15-2023 13:20-0500 SaO2% (BldA) [Mass fraction] 98 % Lilliam Cason Other [facility] Other 05-15-2023 13:20-0500 Systolic blood pressure 142 mm[Hg] Lilliam Cason Other [facility] 05-07-2023 13:16-0500 Diastolic blood pressure 78 mm[Hg] DO Griselda [employer] Work Phone: [facility] 05-07-2023 13:16-0500 Heart rate 75 /min DO Griselda Kyma [employer] Work Phone: [facility] 05-07-2023 13:16-0500 Respiratory rate 16 /min DO Griselda [employer] Work Phone: [facility] 05-07-2023 13:16-0500 SaO2% (BldA) [Mass fraction] 96 % DO Griselda [employer]ma [employer] Work Phone: [facility] 05-07-2023 13:16-0500 Systolic blood pressure 135 mm[Hg] DO Griselda Kuns Work Phone: [facility] 05-07-2023 10:30-0500 Inhaled oxygen flow rate 3 L/min DO Griselda Kuns Work Phone: [facility] 05-07-2023 08:29-0500 Body height 172.72 cm DO Griselda Kyma [employer] Work Phone: [facility] 05-07-2023 08:29-0500 Body weight 79.37 kg DO Griselda [email or web address] Work Phone: [facility] 05-03-2023 09:15-0500 Body height 172.72 cm Ruddy Harvey Other [facility] Other 05-03-2023 09:15-0500 Body mass index (BMI) [Ratio] 27.06 kg/m2 Ruddy Harvey Other [facility] Other 05-03-2023 09:15-0500 Body temperature 97.8 [degF] Ruddy Harvey Other [facility] Other 05-03-2023 09:15-0500 Body weight 80.74 kg Ruddy Harvey Other [facility] Other 05-03-2023 09:15-0500 Diastolic blood pressure 78 mm[Hg] Ruddy Harvey Other [facility] Other 05-03-2023 09:15-0500 SaO2% (BldA) [Mass fraction] 97 % Ruddy Harvey Other [facility] Other 05-03-2023 09:15-0500 Systolic blood pressure 146 mm[Hg] Ruddy Harvey Other [facility] Other 05-01-2023 10:30-0500 Body height 172.72 cm [email or web address] [email or web address] Other [facility] Other 05-01-2023 10:30-0500 Body mass index (BMI) [Ratio] 27.06 kg/m2 Griselda [employer] Other [facility] Other 05-01-2023 10:30-0500 Body weight 80.74 kg Griseldakeith Mendezs Other [facility] Other 05-01-2023 10:30-0500 Diastolic blood pressure 80 mm[Hg] Griselda Kuns Other [facility] Other 05-01-2023 10:30-0500 Respiratory rate 18 /min Griselda Kuns Other [facility] Other 05-01-2023 10:30-0500 SaO2% (BldA) [Mass fraction] 96 % Griselda Andreas Other [facility] Other 05-01-2023 10:30-0500 Systolic blood pressure 144 mm[Hg] Griselda Kuns Other [facility] Other 04-11-2023 10:40-0400 Body height 172.72 cm Lilliam Kamla Other [facility] Other 04-11-2023 10:40-0400 Body mass index (BMI) [Ratio] 26.67 kg/m2 Lilliam Kamla Other [facility] Other 04-11-2023 10:40-0400 Body weight 79.56 kg Lilliam Kamla Other [facility] Other 04-11-2023 10:40-0400 Diastolic blood pressure 80 mm[Hg] Lilliam Kamla Other [facility] Other 04-11-2023 10:40-0400 SaO2% (BldA) [Mass fraction] 96 % Lilliam Kamla Other [facility] [employer] Other 04-11-2023 10:40-0400 Systolic blood pressure 148 mm[Hg] Lilliam Cason Other [facility] Other 03-21-2023 02:42-0400 Diastolic blood pressure 98 mm[Hg] DO Griselda Kuns Work Phone: [facility] 03-21-2023 02:42-0400 Heart rate 72 /min DO Griselda Kuns Work Phone: [facility] 03-21-2023 02:42-0400 Respiratory rate 16 /min DO Griselda Kuns Work Phone: [facility] 03-21-2023 02:42-0400 SaO2% (BldA) [Mass fraction] 97 % DO Griselda Kuns Work Phone: [facility] 03-21-2023 02:42-0400 Systolic blood pressure 170 mm[Hg] DO Griselda Kuns Work Phone: [facility] 03-21-2023 00:12-0400 Body height 172.72 cm DO Griselda Kuns Work Phone: [facility] 03-21-2023 00:12-0400 Body temperature 98 [degF] DO Griselda Kuns Work Phone: [facility] 03-21-2023 00:12-0400 Body weight 79.37 kg DO Griselda Kuns Work Phone: [facility] 03-15-2023 10:30-0400 Body height 172.72 cm [employer] ([facility]) Other [facility] Other 03-15-2023 10:30-0400 Body mass index (BMI) [Ratio] 26.76 kg/m2 Griselda [employer] Other [facility] Other 03-15-2023 10:30-0400 Body weight 79.83 kg Griselda Kuns Other [facility] Other 03-15-2023 10:30-0400 Diastolic blood pressure 86 mm[Hg] Griselda Kuns Other [facility] Other 03-15-2023 10:30-0400 Respiratory rate 16 /min Griselda Kuns Other [facility] Other 03-15-2023 10:30-0400 SaO2% (BldA) [Mass fraction] 97 % Griselda Kuns Other [facility] Other 03-15-2023 10:30-0400 Systolic blood pressure 174 mm[Hg] Griselda Kuns Other [facility] Other 03-08-2023 10:00-0400 Body height 172.72 cm Griselda Kuns Other [facility] Other 03-08-2023 10:00-0400 Body mass index (BMI) [Ratio] 27.18 kg/m2 Griselda Kuns Other [facility] Other 03-08-2023 10:00-0400 Body weight 81.1 kg Griselda Kuns Other [facility] Other 03-08-2023 10:00-0400 Diastolic blood pressure 82 mm[Hg] Griselda Kuns Other [facility] Other 03-08-2023 10:00-0400 Respiratory rate 16 /min Griselda Kuns Other [facility] Other 03-08-2023 10:00-0400 SaO2% (BldA) [Mass fraction] 96 % Griselda Kuns Other [facility] Other 03-08-2023 10:00-0400 Systolic blood pressure 118 mm[Hg] Griselda Kuns Other [facility] Other 02-26-2023 14:13-0400 Body height 172.72 cm DO Griselda Kuns Work Phone: [facility] 02-26-2023 14:13-0400 Body temperature 98 [degF] DO Griselda Kuns Work Phone: [facility] 02-26-2023 14:13-0400 Body weight 78.6 kg DO Griselda Kuns Work Phone: [facility] 02-26-2023 14:13-0400 Diastolic blood pressure 77 mm[Hg] DO Griselda Kuns Work Phone: [facility] 02-26-2023 14:13-0400 Heart rate 56 /min DO Griselda Kuns Work Phone: [facility] 02-26-2023 14:13-0400 Respiratory rate 18 /min DO Griselda Kuns Work Phone: [facility] 02-26-2023 14:13-0400 SaO2% (BldA) [Mass fraction] 96 % DO Griselda Kuns Work Phone: [facility] 02-26-2023 14:13-0400 Systolic blood pressure 142 mm[Hg] DO Griselda Kuns Work Phone: [facility] 12-05-2022 10:15-0400 Body height 172.72 cm Griselda Kuns Other [facility] Other 12-05-2022 10:15-0400 Body mass index (BMI) [Ratio] 25.85 kg/m2 Griselda Krause Other [facility] Other 12-05-2022 10:15-0400 Body weight 77.11 kg Griseldakeith Krause Other [facility] Other 12-05-2022 10:15-0400 Diastolic blood pressure 80 mm[Hg] Griseldakeith Mendezs Other [facility] Other 12-05-2022 10:15-0400 Respiratory rate 16 /min Griselda Krause Other [facility] Other 12-05-2022 10:15-0400 SaO2% (BldA) [Mass fraction] 96 % Griselda Krause Other [facility] Other 12-05-2022 10:15-0400 Systolic blood pressure 140 mm[Hg] Griselda [employer] Other [facility] Other 09-13-2022 10:57-0400 Body height 170.6 cm Kelton Perez PA-C Work Phone: [facility] 09-13-2022 10:57-0400 Body temperature 97.39 [degF] Kelton Perez PA-C Work Phone: [facility] 09-13-2022 10:57-0400 Body weight 77.34 kg Kelton Perez PA-C Work Phone: [facility] 09-13-2022 10:57-0400 Diastolic blood pressure 61 mm[Hg] Kelton Moorek PA-C Work Phone: [facility] 09-13-2022 10:57-0400 Heart rate 70 /min Kelton Perez PA-C Work Phone: [facility] 09-13-2022 10:57-0400 Respiratory rate 18 /min Kelton Perez PA-C Work Phone: [facility] 09-13-2022 10:57-0400 SaO2% (BldA) [Mass fraction] 100 % Kelton Perez PA-C Work Phone: [facility] 09-13-2022 10:57-0400 Systolic blood pressure 133 mm[Hg] Kelton Perez PA-C Work Phone: [facility] 08-31-2022 11:15-0400 Body height 172.72 cm Griselda Andreas Other [facility] Other 08-31-2022 11:15-0400 Body mass index (BMI) [Ratio] 26.79 kg/m2 Griselda Andreas Other [facility] Other 08-31-2022 11:15-0400 Body weight 79.92 kg Griselda Kuns Other [facility] Other 08-31-2022 11:15-0400 Diastolic blood pressure 78 mm[Hg] Griselda Kuns Other [facility] Other 08-31-2022 11:15-0400 Respiratory rate 16 /min Griselda Kuns Other [facility] Other 08-31-2022 11:15-0400 SaO2% (BldA) [Mass fraction] 98 % Griselda Kuns Other [facility] Other 08-31-2022 11:15-0400 Systolic blood pressure 138 mm[Hg] Griselda Kuns Other [facility] Other 08-01-2022 10:30-0500 Body height 172.72 cm Griselda Kuns Other [facility] Other 08-01-2022 10:30-0500 Body mass index (BMI) [Ratio] 27.27 kg/m2 Griselda Kuns Other [facility] Other 08-01-2022 10:30-0500 Body weight 81.38 kg Griselda Kuns Other [facility] Other 08-01-2022 10:30-0500 Diastolic blood pressure 82 mm[Hg] Griselda Kuns Other [facility] Other 08-01-2022 10:30-0500 Respiratory rate 16 /min Griselda Kuns Other [facility] Other 08-01-2022 10:30-0500 SaO2% (BldA) [Mass fraction] 99 % Griselda Kuns Other [facility] Other 08-01-2022 10:30-0500 Systolic blood pressure 146 mm[Hg] Griselda Kuns Other [facility] Other 07-17-2022 09:45-0500 Diastolic blood pressure 98 mm[Hg] DO Griselda Kuns Work Phone: [facility] 07-17-2022 09:45-0500 Heart rate 69 /min DO Griselda Kuns Work Phone: [facility] 07-17-2022 09:45-0500 Respiratory rate 16 /min DO Griselda Kuns Work Phone: [facility] 07-17-2022 09:45-0500 SaO2% (BldA) [Mass fraction] 99 % DO Griselda Kuns Work Phone: [facility] 07-17-2022 09:45-0500 Systolic blood pressure 144 mm[Hg] DO Griselda Kuns Work Phone: [facility] 07-17-2022 07:58-0500 Body height 172.72 cm DO Griselda Kuns Work Phone: [facility] 07-17-2022 07:58-0500 Body weight 79.37 kg DO Griselda Kuns Work Phone: [facility] 06-28-2022 10:20-0500 Body height 172.72 cm Trish Blades Other [facility] Other 06-28-2022 10:20-0500 Body mass index (BMI) [Ratio] 26.67 kg/m2 Trish Blades Other [facility] Other 06-28-2022 10:20-0500 Body weight 79.56 kg Trish Blades Other [facility] Other 06-28-2022 10:20-0500 Diastolic blood pressure 80 mm[Hg] Trish Blades Other [facility] Other 06-28-2022 10:20-0500 Systolic blood pressure 140 mm[Hg] Trish Blades Other [facility] Other 05-26-2022 13:30-0500 Body height 172.72 cm Griselda Kuns Other [facility] Other 05-26-2022 13:30-0500 Body mass index (BMI) [Ratio] 26.7 kg/m2 Griselda Kuns Other [facility] Other 05-26-2022 13:30-0500 Body weight 79.65 kg Griselda Kuns Other [facility] Other 05-26-2022 13:30-0500 Diastolic blood pressure 82 mm[Hg] Griselda Kuns Other [facility] Other 05-26-2022 13:30-0500 Respiratory rate 18 /min Griselda Kuns Other [facility] Other 05-26-2022 13:30-0500 SaO2% (BldA) [Mass fraction] 98 % Griselda Kuns Other [facility] Other 05-26-2022 13:30-0500 Systolic blood pressure 144 mm[Hg] Griselda Kuns Other [facility] Other 04-17-2022 00:30-0400 Diastolic blood pressure 64 mm[Hg] DO Griselda Kuns Work Phone: [facility] 04-17-2022 00:30-0400 Heart rate 78 /min DO Griselda Kuns Work Phone: [facility] 04-17-2022 00:30-0400 Respiratory rate 16 /min DO Griselda Kuns Work Phone: [facility] 04-17-2022 00:30-0400 SaO2% (BldA) [Mass fraction] 97 % DO Griselda Kuns Work Phone: [facility] 04-17-2022 00:30-0400 Systolic blood pressure 135 mm[Hg] DO Griselda Kuns Work Phone: [facility] 04-16-2022 19:45-0400 Body height 172.72 cm DO Griselda Kuns Work Phone: [facility] 04-16-2022 19:45-0400 Body temperature 98.1 [degF] DO Griselda Kuns Work Phone: [facility] 04-16-2022 19:45-0400 Body weight 78 kg DO Griselda Kuns Work Phone: [facility] 04-06-2022 16:31-0400 Body height 172.72 cm DO Griselda Kuns Work Phone: [facility] 04-06-2022 16:31-0400 Body temperature 98.1 [degF] DO Griselda Kuns Work Phone: [facility] 04-06-2022 16:31-0400 Body weight 79.37 kg DO Griselda Kuns Work Phone: [facility] 04-06-2022 16:31-0400 Diastolic blood pressure 108 mm[Hg] DO Griselda Kuns Work Phone: [facility] 04-06-2022 16:31-0400 Heart rate 95 /min DO Griselda Kuns Work Phone: [facility] 04-06-2022 16:31-0400 Respiratory rate 19 /min DO Griselda Kuns Work Phone: [facility] 04-06-2022 16:31-0400 SaO2% (BldA) [Mass fraction] 97 % DO Griselda Kuns Work Phone: [facility] 04-06-2022 16:31-0400 Systolic blood pressure 138 mm[Hg] DO Griselda Kuns Work Phone: [facility] 03-16-2022 13:30-0400 Body height 172.72 cm [employer] Other [facility] Other 03-16-2022 13:30-0400 Body mass index (BMI) [Ratio] 26.91 kg/m2 Griselda [employer] Other [facility] Other 03-16-2022 13:30-0400 Body weight 80.29 kg Griselda Kuns Other [facility] Other 03-16-2022 13:30-0400 Diastolic blood pressure 80 mm[Hg] Griselda Kuns Other [facility] Other 03-16-2022 13:30-0400 Respiratory rate 16 /min Griselda Kuns Other [facility] Other 03-16-2022 13:30-0400 SaO2% (BldA) [Mass fraction] 97 % Griselda Kuns Other [facility] Other 03-16-2022 13:30-0400 Systolic blood pressure 140 mm[Hg] Griselda Kuns Other [facility] Other 01-30-2022 12:00-0400 Body height 172.72 cm Griselda Kuns Other [facility] Other 01-30-2022 12:00-0400 Body mass index (BMI) [Ratio] 26.3 kg/m2 Griselda Kuns Other [facility] Other 01-30-2022 12:00-0400 Body weight 78.47 kg Griselda Kuns Other [facility] Other 01-30-2022 12:00-0400 Diastolic blood pressure 82 mm[Hg] Griselda Kuns Other [facility] Other 01-30-2022 12:00-0400 Respiratory rate 16 /min Griselda Kuns Other [facility] Other 01-30-2022 12:00-0400 SaO2% (BldA) [Mass fraction] 99 % Griselda Kuns Other [facility] Other 01-30-2022 12:00-0400 Systolic blood pressure 146 mm[Hg] Griselda Kuns Other [facility] Other 12-26-2021 11:00-0400 Body height 172.72 cm Griselda Kuns Other [facility] Other 12-26-2021 11:00-0400 Body mass index (BMI) [Ratio] 26.61 kg/m2 Griselda Kuns Other [facility] Other 12-26-2021 11:00-0400 Body weight 79.38 kg Griselda Kuns Other [facility] Other 12-26-2021 11:00-0400 Diastolic blood pressure 80 mm[Hg] Griselda Kuns Other [facility] Other 12-26-2021 11:00-0400 Respiratory rate 16 /min Griselda Kuns Other [facility] Other 12-26-2021 11:00-0400 SaO2% (BldA) [Mass fraction] 96 % Griselda Kuns Other [facility] Other 12-26-2021 11:00-0400 Systolic blood pressure 166 mm[Hg] Griselda Kuns Other [facility] Other 12-05-2021 10:15-0400 Body height 172.72 cm Griselda Kuns Other [facility] Other 12-05-2021 10:15-0400 Body mass index (BMI) [Ratio] 269.71 kg/m2 Griselda Kuns Other [facility] Other 12-05-2021 10:15-0400 Body weight 804.69 kg Griselda Kuns Other [facility] Other 12-05-2021 10:15-0400 Diastolic blood pressure 72 mm[Hg] Griselda Kuns Other [facility] Other 12-05-2021 10:15-0400 Respiratory rate 18 /min Griselda Kuns Other [facility] Other 12-05-2021 10:15-0400 SaO2% (BldA) [Mass fraction] 99 % Griselda Kuns Other [facility] Other 12-05-2021 10:15-0400 Systolic blood pressure 130 mm[Hg] Griselda Kuns Other [facility] Other 11-08-2021 11:15-0400 Body height 172.72 cm Griselda Kuns Other [facility] Other 11-08-2021 11:15-0400 Body mass index (BMI) [Ratio] 27.06 kg/m2 Griselda Kuns Other [facility] Other 11-08-2021 11:15-0400 Body weight 80.74 kg Griselda Kuns Other [facility] Other 11-08-2021 11:15-0400 Diastolic blood pressure 80 mm[Hg] Griselda Kuns Other [facility] Other 11-08-2021 11:15-0400 Respiratory rate 16 /min Griselda Krause Other [facility] Other 11-08-2021 11:15-0400 SaO2% (BldA) [Mass fraction] 97 % Griselda Krause Other [facility] Other 11-08-2021 11:15-0400 Systolic blood pressure 128 mm[Hg] Griseldakeith Krause Other [facility] Other 11-03-2021 09:38-0400 Body height 170.51 cm Griselda Krause Work Phone: [facility] Work Phone: 11-03-2021 09:38-0400 Body mass index (BMI) [Ratio] 27.05 kg/m2 Griselda Krause Work Phone: [facility] Work Phone: 11-03-2021 09:38-0400 Body surface area Derived from formula 1.91 m2 Griselda Krause Work Phone: [facility] Work Phone: 11-03-2021 09:38-0400 Body temperature 98.2 [degF] Griselda Krause Work Phone: [facility] Work Phone: 11-03-2021 09:38-0400 Body weight 78.65 kg Griselda Krause Work Phone: [facility] Work Phone: 11-03-2021 09:38-0400 Diastolic blood pressure 67 mm[Hg] Griselda Krause Work Phone: [facility] Work Phone: 11-03-2021 09:38-0400 Heart rate 63 /min Griselda R Andreas Work Phone: [facility] Work Phone: 11-03-2021 09:38-0400 Respiratory rate 16 /min Griselda R Andreas Work Phone: [facility] Work Phone: 11-03-2021 09:38-0400 SaO2% (BldA) [Mass fraction] 99 % Griselda R Andreas Work Phone: [facility] Work Phone: 11-03-2021 09:38-0400 Systolic blood pressure 147 mm[Hg] Griselda R Andreas Work Phone: [facility] Work Phone: 11-03-2021 09:38-0400 7 1 Griselda R Andreas Work Phone: [facility] Work Phone: Comment on above: [facility] 11-01-2021 13:30-0400 Body height 172.72 cm Griselda Krause Other [facility] Other 11-01-2021 13:30-0400 Body mass index (BMI) [Ratio] 26.61 kg/m2 Griselda Andreas Other [facility] Other 11-01-2021 13:30-0400 Body weight 79.38 kg Griseldakeith Mendezs Other [facility] Other 11-01-2021 13:30-0400 Diastolic blood pressure 78 mm[Hg] Griselda [employer] Other [facility] Other 11-01-2021 13:30-0400 Respiratory rate 18 /min Griselda Krause Other [facility] Other 11-01-2021 13:30-0400 SaO2% (BldA) [Mass fraction] 99 % Griselda Mendezs Other [facility] Other 11-01-2021 13:30-0400 Systolic blood pressure 140 mm[Hg] Griseldakeith Mendezs Other [facility] Other 10-24-2021 09:45-0400 Body height 172.72 cm Sheng El[employer] Other [facility] Other 10-24-2021 09:45-0400 Body mass index (BMI) [Ratio] 26.76 kg/m2 Sheng Fredxavier Other [facility] Other 10-24-2021 09:45-0400 Body weight 79.83 kg Sheng [employer] Other [facility] Other 10-13-2021 09:50-0400 Body height 172 cm Memo Cole MD Work Phone: [facility] 10-13-2021 09:50-0400 Body temperature 97.5 [degF] Memo Cole MD Work Phone: [facility] 10-13-2021 09:50-0400 Body weight 81.28 kg Memo Cole MD Work Phone: [facility] 10-13-2021 09:50-0400 Diastolic blood pressure 77 mm[Hg] Memo Cole MD Work Phone: [facility] 10-13-2021 09:50-0400 Heart rate 70 /min Memo Cole MD Work Phone: [facility] 10-13-2021 09:50-0400 Respiratory rate 16 /min Memo Cole MD Work Phone: [facility] 10-13-2021 09:50-0400 SaO2% (BldA) [Mass fraction] 99 % Memo Cole MD Work Phone: [facility] 10-13-2021 09:50-0400 Systolic blood pressure 152 mm[Hg] Memo Cole MD Work Phone: [facility] 09-19-2021 10:45-0400 Body height 172.72 cm Griselda Mendezs Other [facility] Other 09-19-2021 10:45-0400 Body mass index (BMI) [Ratio] 26.15 kg/m2 Griseldakeith Mendezs Other [facility] Other 09-19-2021 10:45-0400 Body weight 78.02 kg Griselda [employer] Other [facility] Other 09-19-2021 10:45-0400 Diastolic blood pressure 80 mm[Hg] Griselda Kuns Other [facility] Other 09-19-2021 10:45-0400 Respiratory rate 18 /min Griselda Andreas Other [facility] Other 09-19-2021 10:45-0400 SaO2% (BldA) [Mass fraction] 99 % Griselda [employer] Other [facility] Other 09-19-2021 10:45-0400 Systolic blood pressure 140 mm[Hg] Griselda Kuns Other [facility] Other 06-30-2021 13:30-0500 Body height 172.72 cm Griseldakeith Mendezs Other [facility] Other 04-14-2021 08:45-0400 Body height 172.72 cm Griselda Kuns Other [facility] Other 04-14-2021 08:45-0400 Body mass index (BMI) [Ratio] 25.85 kg/m2 Griselda Andreas Other [facility] Other 04-14-2021 08:45-0400 Body weight 77.11 kg Griselda Kuns Other [facility] Other 04-14-2021 08:45-0400 Diastolic blood pressure 80 mm[Hg] Griselda Andreas Other [facility] Other 04-14-2021 08:45-0400 Respiratory rate 16 /min Griselda Andreas Other [facility] Other 04-14-2021 08:45-0400 SaO2% (BldA) [Mass fraction] 99 % Griselda Andreas Other [facility] Other 04-14-2021 08:45-0400 Systolic blood pressure 124 mm[Hg] Griselda Kuns Other [facility] Other Encounters Encounter Date Encounter Type Care Provider Facility Start: 08-02-2023 End: 08-02-2023 ambulatory DO Griselda Kuns Work Phone: [facility] Work Phone: Start: 08-02-2023 End: 08-02-2023 Patient encounter procedure DO Griselda Kuns Work Phone: [facility] Work Phone: Start: 07-26-2023 End: 07-26-2023 ambulatory NIKOLE THOMASON Not Available Start: 07-26-2023 Chart abstracting Nikole Thomason [employer] Work Phone: [facility] Start: 07-19-2023 End: 07-19-2023 ambulatory NIKOLE THOMASON Not Available Start: 07-19-2023 Bamboo flowsheet Nikole Thomason [employer]PORATE HUM[employer] RESOURCES MANAGER Work Phone: [facility] Start: 07-19-2023 Bamboo flowsheet Nikole Thomason [employer]PORATE HUM[employer] RESOURCES MANAGER Work Phone: [facility] Start: 07-18-2023 End: 07-21-2023 ambulatory ADDIS JUAREZ [facility] Start: 07-03-2023 End: 07-03-2023 ambulatory NIKOLE THOMASON Not Available Start: 07-02-2023 End: 07-02-2023 ambulatory Griselda Kuns Other [facility] Other Start: 07-02-2023 Office outpatient vi sit 25 minutes Griselda Kuns [facility] Start: 07-02-2023 End: 07-02-2023 Patient encounter procedure DO Griselda Kuns Work Phone: [facility] Work Phone: Start: 06-07-2023 End: 06-07-2023 ambulatory NIKOLE THOMASON Not Available Start: 05-31-2023 End: 05-31-2023 ambulatory Griselda Kuns Other [facility] Other Start: 05-31-2023 Office outpatient vi sit 25 minutes Grisel[facility]uns [facility] Start: 05-30-2023 Office outpatient vi sit 15 minutes Ruddy Harvey [facility] Vascular Surgery Start: 05-30-2023 End: 05-30-2023 ambulatory DO Griselda Kuns Work Phone: [facility] [employer] Other Start: 05-30-2023 End: 05-31-2023 Patient encounter procedure DO Griselda Kuns Work Phone: [facility]-Ultrasound [facility] Start: 05-30-2023 End: 05-30-2023 Patient encounter procedure DO Griselda Kuns Work Phone: [facility] Work Phone: Start: 05-15-2023 End: 05-15-2023 ambulatory Lilliam Cason Other [employer] Other Start: 05-15-2023 Office outpatient vi sit 25 minutes Lilliam Cason [facility] Start: 05-15-2023 Telephone encounter Lilliam Cason [employer] Ass[employer] Specialist Start: 05-15-2023 End: 05-15-2023 Patient encounter procedure DO Griselda Kuns Work Phone: [facility] Work Phone: Start: 05-14-2023 End: 05-15-2023 ambulatory Sarina Ramsey MD Facility: [facility] Start: 05-07-2023 End: 05-07-2023 ambulatory Griselda Kuns Facility:[facility] Start: 05-07-2023 End: 05-07-2023 Admission to same day surgery center DO Griselda Kuns Work Phone: [facility]-Interventional Radiology Work Phone: Start: 05-07-2023 End: 05-07-2023 ambulatory DO Griselda Kuns Work Phone: [facility] Work Phone: Start: 05-04-2023 End: 05-04-2023 ambulatory Griselda Kuns Facility:[facility] Start: 05-04-2023 End: 05-04-2023 ambulatory DO Griselda Kuns Work Phone: [facility] Work Phone: Start: 05-04-2023 End: 05-04-2023 Patient encounter procedure DO Griselda Kuns Work Phone: [facility]-CT Scan [place] Work Phone: Start: 05-03-2023 End: 05-03-2023 ambulatory Ruddy Harvey Other [employer] Other Start: 05-03-2023 Office outpatient ne w 45 minutes Ruddy Harvey [facility] Start: 05-03-2023 Telephone encounter Ruddy craft [employer] Quality Assurance Specialist Start: 05-01-2023 End: 05-01-2023 ambulatory Griselda Andreas Other [employer] Other Start: 05-01-2023 Office outpatient vi sit 25 minutes Griselda Kuns [facility] Start: 04-25-2023 End: 04-25-2023 ambulatory Lilliam Cason Facility:[facility] Start: 04-25-2023 End: 04-25-2023 ambulatory DO Griselda Kuns Work Phone: [facility] Work Phone: Start: 04-25-2023 End: 04-25-2023 Patient encounter procedure DO Griselda Kuns Work Phone: [facility]Ultrasound [place] Work Phone: Start: 04-16-2023 End: 04-17-2023 ambulatory Sarina Ramsey MD Facility:[facility] Start: 04-12-2023 End: 04-12-2023 ambulatory Lilliam Cason Other [employer] Other Start: 04-12-2023 Telephone encounter Lilliam CHENG [facility] Start: 04-11-2023 End: 04-11-2023 ambulatory Lilliam Grecooroge Other [employer] Other Start: 04-11-2023 Office outpatient ne w 45 minutes Lilliam Kamla [facility] Start: 04-10-2023 End: 04-10-2023 ambulatory Grisedla Kuns Other [employer] Other Start: 04-10-2023 Telephone encounter Grieslda Kuns [facility] Start: 03-30-2023 End: 03-30-2023 ambulatory Griselda Kuns Facility:[facility] Start: 03-30-2023 End: 03-30-2023 ambulatory DO Griselda Kuns Work Phone: [facility] Work Phone: Start: 03-30-2023 End: 03-30-2023 Patient encounter procedure DO Griselda Kuns Work Phone: [facility]-Lab [place] Work Phone: Start: 03-21-2023 End: 03-21-2023 Emergency department patient visit Rohit Harpreet Agrawal Facility:[facility] Start: 03-21-2023 End: 03-21-2023 Emergency department patient visit DO Griselda Kuns Work Phone: [facility]-Emergency Room Work Phone: Start: 03-15-2023 End: 03-15-2023 ambulatory Griselda Kuns Other [employer] Other Start: 03-15-2023 Office outpatient vi sit 25 minutes Griselda Kuns [facility] Start: 03-08-2023 End: 03-08-2023 ambulatory Griselda Kuns Other [employer] Other Start: 03-08-2023 Office outpatient vi sit 25 minutes Griselda Kuns [facility] Start: 02-26-2023 End: 02-26-2023 Emergency department patient visit Daniel Gaytan Facility:[facility] Start: 02-26-2023 End: 02-26-2023 Emergency department patient visit DO Griselda Kuns Work Phone: [facility]-Emergency Room Work Phone: Start: 12-28-[address] BRET Lawrence ity:UNKNOWN Start: 12-05-2022 End: 12-05-2022 ambulatory Griselda Andreas Other [facility] [employer] Other Start: 12-05-2022 Office outpatient vi sit 25 minutes Griselda Krause [facility] [place] Start: 11-15-2022 End: 11-15-2022 ambulatory Lima Joseph Facility:[facility] Start: 11-15-2022 End: 11-15-2022 ambulatory DO Griselda Kuns Work Phone: [facility] Work Phone: Start: 11-15-2022 End: 11-15-2022 Patient encounter procedure DO Griselda Kuns Work Phone: [facility]-MRI [address] Work Phone: Start: 10-27-2022 End: 10-27-2022 ambulatory GRISELDA KRAUSE Facility:[facility] Start: 10-24-2022 End: 10-24-2022 ambulatory Griselda Krause Facility:[facility] Start: 10-24-2022 End: 10-24-2022 ambulatory DO Griselda Kuns Work Phone: [facility] Work Phone: Start: 10-24-2022 End: 10-24-2022 Patient encounter procedure DO Griselda Kuns Work Phone: [facility] [place] Work Phone: Start: 10-17-2022 End: 10-17-2022 ambulatory ARSENIO JACKSON Facility:[facility] Start: 09-28-2022 End: 09-28-2022 ambulatory DEMOND CAT Facility:[facility] Start: 09-22-2022 End: 09-22-2022 ambulatory KELTON PEREZ Facility:[facility] Start: 09-22-2022 End: 09-22-2022 Subsequent hospital visit by physician Jonelle Hernandez (I-Stat/3t) Work Phone: Radiology Comment on above: 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] Start: 09-18-2022 Telephone encounter Kelton ghosh PA-C Work Phone: [facility] [place] Comment on above: Patient Question Start: 09-13-2022 End: 09-13-2022 ambulatory ELVI CADENA Facility:[facility] Start: 09-13-2022 End: 09-13-2022 Patient encounter procedure Kelton SAAVEDRA-C Work Phone: [facility] Comment on above: NPH (normal pressure hydrocephalus) (HCC) (Primary Dx) Start: 08-31-2022 End: 08-31-2022 ambulatory Griselda Kuns Other [employer] Other Start: 08-31-2022 Office outpatient vi sit 25 minutes Griselda Kuns [facility] Start: 08-01-2022 End: 08-01-2022 ambulatory Griselda Kuns Other [employer] Other Start: 08-01-2022 Office outpatient vi sit 25 minutes Griselda Kuns [facility] Start: 07-17-2022 End: 07-17-2022 ambulatory DO Griselda Kuns Work Phone: [facility] Work Phone: Start: 07-17-2022 End: 07-17-2022 Patient encounter procedure DO Griselda Kuns Work Phone: [facility]XRay [place] Work Phone: Start: 07-14-2022 End: 07-14-2022 Patient encounter procedure DO Griselda Kuns Work Phone: [facility]-CT Scan [place] Work Phone: Start: 06-28-2022 End: 06-28-2022 ambulatory Trish Blades Other [employer] Other Start: 06-28-2022 Office outpatient ne w 45 minutes Trish Blades [facility] Neurosurgery Start: 05-26-2022 End: 05-26-2022 ambulatory Griselda Kuns Other [employer] Other Start: 05-26-2022 Office outpatient vi sit 25 minutes Griselda Kuns [facility] Start: 05-17-2022 End: 05-17-2022 ambulatory DO Griselda Kuns Work Phone: [facility] Work Phone: Start: 05-17-2022 End: 05-17-2022 Discharged Recurring DO Griselda Kuns Work Phone: [facility]-Physical Therapy [address] Start: 04-27-2022 Registered Recurring DO Griselda Kuns Work Phone: [facility]-Physical Therapy [address] Start: 04-16-2022 End: 04-17-2022 Emergency department patient visit DO Griselda Kuns Work Phone: [facility]-Emergency Room Start: 04-10-2022 End: 04-10-2022 ambulatory Griselda Kuns Other [employer] Other Start: 04-10-2022 Telephone encounter Griselda Kuns [facility] Start: 04-06-2022 End: 04-06-2022 Emergency department patient visit DO Griselda Kuns Work Phone: [facility]-Emergency Room Start: 03-27-2022 Telephone encounter Asya Greene RN Hematology/Oncology Comment on above: Appointment Start: 03-22-2022 End: 03-22-2022 ambulatory Griselda Kuns Other [employer] Other Start: 03-22-2022 Telephone encounter Griselda Kuns [facility] Start: 03-16-2022 End: 03-16-2022 ambulatory Griselda Kuns Other [employer] Other Start: 03-16-2022 Office outpatient vi sit 25 minutes Griselda Kuns [facility] Start: 03-16-2022 Telephone encounter Self [facility] Comment on above: Triage (Internal Ref erral--old) Start: 03-09-2022 End: 03-09-2022 ambulatory Griselda Kuns Other [employer] Other Start: 03-09-2022 Telephone encounter Griselda Kuns [facility] Start: 03-07-2022 End: 03-07-2022 ambulatory Griselda Kuns Other [employer] Other Start: 03-07-2022 Telephone encounter Griselda Kuns [facility] Start: 03-03-2022 Telephone encounter Griselda Kuns [facility] Start: 03-03-2022 End: 03-03-2022 ambulatory DO Griselda Kuns Work Phone: [employer] Other Start: 03-03-2022 End: 03-03-2022 Discharged Recurring DO Griselda Kuns Work Phone: [facility]-Physical Therapy [facility] Start: 03-03-2022 Registered Recurring DO Griselda Kuns Work Phone: [facility]-Physical Therapy [address] Start: 02-07-2022 End: 02-07-2022 ambulatory Griselda Kuns Other [employer] Other Start: 02-07-2022 Telephone encounter Griselda Kuns [facility] [place] Start: 01-30-2022 End: 01-30-2022 ambulatory Griselda Kuns Other [employer] Other Start: 01-30-2022 Office outpatient vi sit 25 minutes Griselda Kuns [facility] Start: 01-12-2022 End: 01-12-2022 ambulatory Griselda Kuns Other [employer] Other Start: 01-12-2022 Telephone encounter Griselda Kuns [facility] [place] Start: 12-26-2021 End: 12-26-2021 ambulatory Griselda Kuns Other [employer] Other Start: 12-26-2021 Office outpatient vi sit 25 minutes Griselda Kuns [facility] [place] Start: 12-23-2021 End: 12-23-2021 ambulatory Griselda Kuns Other [employer] Other Start: 12-23-2021 Telephone encounter Griselda Kuns [facility] [place] Start: 12-05-2021 End: 12-05-2021 ambulatory Griselda Kuns Other [employer] Other Start: 12-05-2021 Office outpatient vi sit 25 minutes Griselda Kuns [facility] [place] Start: 12-05-2021 Telephone encounter Griselda Kuns [facility] [place] Start: 11-22-2021 End: 11-22-2021 ambulatory Griselda Kuns Other [employer] Other Start: 11-22-2021 Telephone encounter Griselda Kuns [facility] [place] Start: 11-21-2021 Office outpatient vi sit 15 minutes Griselda R Kuns Work Phone: [facility] Work Phone: Start: 11-09-2021 End: 11-09-2021 ambulatory Griselda Kuns Other [employer] Other Start: 11-09-2021 Telephone encounter Griselda Kuns [facility] Start: 11-08-2021 End: 11-08-2021 ambulatory Griselda Kuns Other [employer] Other Start: 11-08-2021 Office outpatient vi sit 25 minutes Griselda Kuns [facility] Start: 11-03-2021 Office consultation new/estab patient 60 min Griselda R Kuns Work Phone: [facility] Work Phone: Start: 11-01-2021 End: 11-01-2021 ambulatory Griselda Kuns Other [employer] Other Start: 11-01-2021 Office outpatient vi sit 25 minutes Griselda Kuns [facility] Start: 10-31-2021 End: 10-31-2021 ambulatory Sheng Schneider Other 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); Lung nodules; Malignant neoplasm of head, face and neck (HCC) Start: 10-27-2021 End: 10-27-2021 Telemedicine consultation with patient Memo Cole MD Work Phone: [facility] Start: 10-24-2021 End: 10-24-2021 ambulatory Sheng Schneider Other [employer] Other Start: 10-24-2021 Office outpatient ne w 30 minutes Sheng Schneider [facility] Neurosurgery Start: 10-13-2021 Telephone encounter Memo kapoor MD Work Phone: [facility] Comment on above: Referral Information (Neurosurgery) Start: 10-13-2021 End: 10-13-2021 ambulatory Memo Cole MD Work Phone: Hematology/Oncology Comment on above: Glioma of brain (HCC ) (Primary Dx); Lung nodules; 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) Start: 10-13-2021 End: 10-13-2021 Patient encounter procedure Memo Cole MD Work Phone: [facility] Start: 10-06-2021 End: 10-06-2021 ambulatory Griselda Kuns Other [employer] Other Start: 10-06-2021 Telephone encounter Asya Kumar RN Hematology/Oncology Comment on above: Results Start: 09-29-2021 End: 09-29-2021 ambulatory Griselda Kuns Other [employer] Other Start: 09-29-2021 Telephone encounter Griselda Kuns [facility] Start: 09-27-2021 End: 09-27-2021 ambulatory Griselda Kuns Other [employer] Other Start: 09-27-2021 Telephone encounter Griselda Kuns [facility] Start: 09-19-2021 End: 09-19-2021 ambulatory Griselda Kuns Other [employer] Other Start: 09-19-2021 Office outpatient vi sit 25 minutes Griselda Kuns [facility] Start: 09-12-2021 End: 09-12-2021 ambulatory Griselda Kuns Other [employer] Other Start: 09-12-2021 Telephone encounter Griselda Kuns [facility] Start: 09-08-2021 End: 09-08-2021 ambulatory Griselda Kuns Other [employer] Other Start: 09-08-2021 Telephone encounter Griselda Kuns [facility] Start: 06-30-2021 End: 06-30-2021 ambulatory Griselda Kuns Other [employer] Other Start: 06-30-2021 Office outpatient vi sit 15 minutes Griselda Kuns [facility] Start: 06-30-2021 Telephone encounter Griselda Kuns [facility] Start: 06-29-2021 End: 06-29-2021 ambulatory Griselda Kuns Other [employer] Other Start: 06-29-2021 Nursing evaluation o f patient and report Griselda Kuns [facility] Start: 04-19-2021 End: 04-19-2021 ambulatory Griselda Kuns Other [employer] Other Start: 04-19-2021 Nursing evaluation o f patient and report Griselda Kuns [facility] Start: 04-19-2021 Telephone encounter Griselda Kuns [facility] Start: 04-14-2021 Office outpatient vi sit 15 minutes Griselda Kuns [facility] Start: 10-01-2020 End: 10-01-2020 Patient encounter procedure Griseldakeith Mendezs Work Phone: -Electrodiagnostics Start: 09-20-2020 End: 09-20-2020 Patient encounter procedure Griselda Mendezs -Lab [facility] Start: 09-13-2020 End: 09-13-2020 Patient encounter procedure Griselda Krause -XRay [place] Procedures Date Procedure Procedure Detail Performing Clinician Start: 05-07-2023 Lower limb angiography DO Griselda Krause Work Phone: Start: 05-04-2023 CT angiography of head DO Griselda [employer] Work Phone: Start: 05-04-2023 CT angiography of neck vessels DO Griselda Krause Work Phone: Start: 04-25-2023 Pulse volume recorder pneumoplethysmography DO Griselda [employer] Work Phone: Start: 02-26-2023 SARS Antigen (LFIA) DO Griselda [employer] Work Phone: Start: 11-15-2022 MR lumbar spine wo con DO Griselda Krause Work Phone: Start: 11-15-2022 XR pre/post mri xray DO Griselda Krause Work Phone: Start: 09-22-2022 Mri brain brain stem w/o w/contrast material Kelton Perez PA-C Work Phone: Start: 07-14-2022 CT of head without contrast DO Griselda meneses Work Phone: Start: 04-16-2022 Plain chest X-ray DO Griselda Krause Work Phone: Start: 04-06-2022 CT cervical spine without contrast DO Griselda Krause Work Phone: Start: 10-13-2021 Adult depression screening assessment Memo Cole MD Work Phone: Start: 10-14-2020 Adult depression screening assessment Asya Kumar RN Start: 09-13-2020 Plain chest X-ray Griselda [employer] Excision of melanoma Griselda Driver [employer] Work Phone: Plan of Treatment Date Care Activity Detail Author Start: 10-06-2024 DIABETES SCREEN DIABETES SCREEN [facility] Start: 03-03-2024 Influenza vaccination Influenza Vaccine (#1) [facility] Comment on above: Postponed from 02/16/2023 (Patient Refus ed) Start: 08-30-2023 End: 08-30-2023 Patient encounter procedure 08/30/2023 9:40 AM EDT Office Visit [facility] [address] [place] [address] Nikole Thomason, CORPORATE HUMAN RESOURCES MANAGER [address] [place] [address], [place] [address] [facility] Start: 07-26-2023 End: 07-26-2023 Patient encounter procedure 07/26/2023 1:30 PM EST Procedure Visit [facility] [address] [place] [address], [place] [address] Nikole Thomason, CORPORATE HUMAN RESOURCES MANAGER [address] [place] [address], [place] [address] [facility] [address] Start: 07-19-2023 End: 07-19-2023 Clinical Support 07/19/2023 1:30 PM EST Clinical Support [facility] [address] [place] [address] Nikole Thomason, CORPORATE HUMAN RESOURCES MANAGER [address] [place] [address], [place] [address] Cervical dystonia [facility] Comment on above: Cervical dystonia Start: 05-07-2023 Pulse volume recorder pneumoplethysmography US arterial pvr rest [facility] Start: 05-07-2023 [facility] Start: 05-07-2023 [facility] Start: 04-25-2023 Pulse volume recorder pneumoplethysmography US arterial pvr rest [facility] Start: 02-16-2023 Influenza vaccination INFLUENZA (Season Ended) [facility] Start: 10-30-2022 End: 10-30-2022 CBC W Auto Differential panel - Blood CBC + DIFF Lab Routine 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) Lung nodules Malignant neoplasm of head, face and neck (HCC) Expected: 10/30/2022 (Approximate), Expires: 10/30/2022 [facility] Work Phone: Comment on above: Expected: 10/30/2022 (Approximate), Expi res: 10/30/2022 Start: 10-30-2022 End: 10-30-2022 Comprehensive metabolic 2000 panel - Serum or Plasma COMP METABOLIC PANEL Lab Routine 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) Lung nodules Malignant neoplasm of head, face and neck (HCC) Expected: 10/30/2022 (Approximate), Expires: 10/30/2022 [facility] Work Phone: Comment on above: Expected: 10/30/2022 (Approximate), Expi res: 10/30/2022 Start: 10-30-2022 End: 11-29-2022 Ct soft tissue neck w/contrast material CT NECK SOFT TISSUE W IVCON Radiology Routine Malignant neoplasm of head, face and neck (HCC) Expected: 10/30/2022 (Approximate), Expires: 11/29/2022 [facility] Work Phone: Comment on above: Expected: 10/30/2022 (Approximate), Expi res: 11/29/2022 Start: 10-30-2022 End: 11-29-2022 Ct thorax w/contrast material CT CHEST W IVCON Radiology Routine Lung nodules Expected: 10/30/2022 (Approximate), Expires: 11/29/2022 [facility] Work Phone: Comment on above: Expected: 10/30/2022 (Approximate), Expi res: 11/29/2022 Start: 10-13-2022 Adult depression screening assessment DEPRESSION SCREENING [facility] Start: 07-17-2022 Aerobic Culture Aerobic Culture [facility] Start: 07-17-2022 Anaerobic Culture Anaerobic Culture [facility] Start: 07-17-2022 Microscopic observation [Identifier] in Unspecified specimen by Gram stain [facility] Start: 07-17-2022 Cerebrospinal fluid culture [facility] Start: 07-17-2022 End: 07-17-2022 [facility] Start: 07-17-2022 [facility] Start: 06-18-2022 DEPRESSION ASSESSMENT DEPRESSION ASSESSMENT [facility] Start: 04-16-2022 Plain chest X-ray XR ribs LT min 3V w CXR1V* [facility] Start: 04-16-2022 XR Unspecified body region Views [facility] Start: 02-16-2022 Influenza vaccination [facility] Start: 10-14-2021 Adult depression screening assessment DEPRESSION SCREENING [facility] Start: 06-23-2021 COVID-19 VACCINE (3 - Booster for Pfizer series) COVID-19 VACCINE (3 - Booster for Pfizer series) [facility] Start: 06-18-2021 DEPRESSION ASSESSMENT DEPRESSION ASSESSMENT [facility] Start: 03-18-2021 COVID-19 VACCINE (3 - Booster for Pfizer series) COVID-19 VACCINE (3 - Booster for Pfizer series) [facility] Start: 2017 PROSTATE CANCER SCREENING DISCUSSION PROSTATE CANCER SCREENING DISCUSSION [facility] Start: 2012 SHINGRIX VACCINE (1 of 2) SHINGRIX VACCINE (1 of 2) [facility] Start: 11-25-2007 COLOGUARD (FIT-DNA) COLOGUARD (FIT-DNA) [facility] Start: 11-25-2007 Colonoscopy COLONOSCOPY [facility] Start: 11-25-2007 COLORECTAL CANCER SCREENING COLORECTAL CANCER SCREENING [facility] Start: 11-25-[address] COLONOGRAPHY [facility] Start: 11-25-2007 FECAL OCCULT BLOOD FECAL OCCULT BLOOD [facility] Start: 11-25-2007 SIGMOIDOSCOPY SIGMOIDOSCOPY [facility] Start: 1997 LIPID SCREEN LIPID SCREEN [facility] Start: 1981 Urine microalbumin profile DTAP,TDAP,TD (1 - Tdap) [facility] Start: 1980 HEPATITIS C SCREENING HEPATITIS C SCREENING [facility] Start: 1980 HIV SCREENING HIV SCREENING [facility] Start: 1962 Screening for malignant neoplasm of colon [facility] Bacteria identified in Cerebral spinal fluid by Culture CSF CULT + STAIN Microbiology Routine NPH (normal pressure hydrocephalus) (HCC) Ordered: 09/13/2022 [facility] Work Phone: Comment on above: Ordered: 09/13/2022 Bacteria identified in Unspecified specimen by Aerobe culture [facility] Bacteria identified in Unspecified specimen by Anaerobe culture [facility] Cell count panel - C erebral spinal fluid CSF CELL COUNT Lab Routine NPH (normal pressure hydrocephalus) (HCC) Ordered: 09/13/2022 [facility] Work Phone: Comment on above: Ordered: 09/13/2022 Cell count, cerebros roberto fluid [facility] Enolase.neuron speci fic [Mass/volume] in Serum or Plasma by Immunoassay [facility] Fungus identified in Unspecified specimen by Culture [facility] Glucose [Mass/volume ] in Cerebral spinal fluid [facility] IR LP FOR DRAINAGE (PRESSURE) IR LP FOR DRAINAGE (PRESSURE) Radiology Routine NPH (normal pressure hydrocephalus) ([facility]) Ordered: 09/13/2022 [facility] Work Phone: Comment on above: Ordered: 09/13/2022 Meningitis+Encephali tis pathogens DNA and RNA panel - Cerebral spinal fluid by JER with non-probe detection [facility] End: 10-20-2023 Mri brain brain stem w/o w/contrast material MRI BRAIN WO/W IVCON Radiology Routine 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[facility]) 1 Occurrences starting 09/20/2022 until 10/20/2023 [facility] Work Phone: Comment on above: 1 Occurrences starting 09/20/2022 until 10/20/2023 Patient Education [facility] Work Phone: Patient referral [facility] Work Phone: Protein [Mass/volume ] in Cerebral spinal fluid [facility] Virus identified in Unspecified specimen by Culture [facility] [place] [facility] Immunizations Immunization Date Immunization Notes Care Provider Fa cility 01-21-2021 COVID-19 Vaccine Pfi zer - Documentation Purposes Only Griselda Krause Other [facility] 12-30-2020 COVID-19 Vaccine Pfi zer - Documentation Purposes Only Griseldakeith Krause Other [facility] 01-24-2016 KENALOG - 10 mg Griselda Krause Other [facility] 01-27-2015 Toradol per 15 mg Griselda Krause Other [facility] 03-15-2014 tetanus toxoid, redu julienne diphtheria toxoid, and acellular pertussis vaccine, adsorbed Griselda Krause Other [facility] Other Payers Date Payer Category Payer Self-pay [id number] 2022 Private Health Insurance [id number] 2022 Unknown 2021 Private Health Insurance [facility] [employer] [id number] 2021-Present [phone] [address] [place] [address] PPO [id number] 2021 Private Health Insurance [id number]. [id number] 2019 Medicaid [employer] [id number] 2019-Present [phone] [address] [place] [address] Medicaid [id number] 2019 Medicaid [id number]. [id number]. [id number] 2019 Unknown [id number] 2019 Unknown [id number] 1962 Unknown [id number] 2.16.840.1.466838.3.579.2. 693 1962 Unknown [id number] 2.16.840.1.598280.3.579.2. 356 1962 Unknown [id number] 2.16.840.1.411571.3.579.2. 196 1962 Unknown [id number] 2.16.840.1.015561.3.579.2. 196 1962 Unknown [id number] 2.16.840.1.971809.3.579.2. 1259 1962 Unknown [id number] 2.16.840.1.207028.3.579.2. 1259 1962 Unknown [id number] 2.16.840.1.959857.3.579.2. 1259 1962 Unknown [id number] 2.16.840.1.904084.3.579.2. 1259 1962 Unknown [id number] 2.16840.1.086753.3.579.2. 182 1962 Unknown [id number] 2.16.840.1.337108.3.579.2. 182 Private Health Insurance [id number] Unknown [id number] Unknown [id number] 2.16.840.1.928523.3.579.2. 531 Unknown [id number] 2.16.840.1.364763.3.579.2. 531 Unknown [id number] 2.16.840.1.455862.3.579.2. 531 Unknown [id number] 2.16.840.1.805513.3.579.2. 531 Unknown [id number] 2.16.840.1.356296.3.579.2. 531 Unknown [id number] 2.16.840.1.568118.3.579.2. 531 Unknown [id number] 2.16.840.1.040566.3.579.2. 531 Unknown [id number] 2.16.840.1.518460.3.579.2. 531 Unknown [id number] 2.16.840.1.867635.3.579.2. 531 Social History Date Type Detail Facility Start: 04-29-2018 End: 07-07-2023 Tobacco smoking status NJIS Smoker (finding) [facility] Start: 1960 Sex Assigned At Male [facility] Start: 10-16-2019 Tobacco smoking status NJIS Ex-smoker [facility] History of tobacco use Cigarette Smoker [facility] Start: 10-16-2019 End: 07-19-2023 Cigarettes smoked current (pack per day) - Reported 1.5 [facility] Start: 10-16-2019 End: 03-13-2023 Tobacco use and exposure Smokeless tobacco non-user [facility] Start: 10-14-2020 End: 07-19-2023 Alcohol intake Ex-drinker (finding) [facility] Start: 01-20-2019 History SDOH Alcohol Comment quit 2001 [facility] Start: 10-16-2019 Tobacco Comment quit smoking 01/2019 [facility] Start: 1960 Sex Assigned At Not on file [facility] Start: 10-03-2021 End: 10-13-2021 Exposure to SARS-CoV-2 (event) Not sure [facility] Start: 07-03-2023 End: 07-19-2023 Sex Assigned At [facility] Start: 03-10-2022 End: 03-20-2022 Exposure to SARS-CoV-2 (event) Unable to assess [facility] Work Phone: Start: 12-28-2022 End: 03-13-2023 Daily Smoker [facility] Start: 03-13-2023 Tobacco Comment 6-10 cigarettes/day [facility] Start: 11-22-2022 Gender identity Identifies as male gender (finding) [facility] Start: 11-22-2022 Sexual orientation Heterosexual (finding) [facility] Medical Equipment Procedure Code Equipment Code Equipment Origin al Text Equipment Identifier Dates Angiogram, lower extremity, left Multiple peripheral artery stent, bare-metal [id number] FDA Start: 05-07-2023 Goals Date Patient Goal Desired Activity /State Clinical Notes 11-03-2008 to 07-02-2023 Note Date & Type Note Facility 07-02-2023 Evaluation note Encounter Date Diagnosis Assessment Notes Jun, Acute cough (ICD-10 - R05.1) In house covid, flu, strep and rsv test was negative. I did prescribe the above medication and encouraged pt to increase fluid intake, throat lozenges or gargle with mouth wash as needed. Pt is to also take OTC pain medication and fever reducers as needed. Jun, Chest congestion (ICD-10 - R09.89) In house covid, flu, strep and rsv test was negative. Jun, Anxiety and depression (ICD-10 - F41.8) Patient has voiced improvement with the above medication. I did provide the patient with more samples. Jun, Acute pain of left shoulder (ICD-10 - M25.512) Toradol injection administered in the office today. Jun, Essential hypertension (ICD-10 - I10) The patients blood pressure was elevated upon check in. Jun, Polyarthralgia (ICD-10 - M25.50) I did offer a toradol injection in the office today. Patient is agreeable. Jun, Osteoarthritis cervical spine (ICD-10 - M47.812) Patient has been receiving injections with neurology. Patient is to continue to follow with them as scheduled. [facility] 12-14-2023 Evaluation note* Encounter Date Diagnosis Assessment Notes Treatment Notes Treatment Clinical Notes May, PAD (peripheral artery disease) (ICD-10 - I73.9) Patient recently had angioplasty for occlusion of right iliac artery that was discovered by sander machine. He has been doing well since the angioplasty by vascular. He is on plavix, ASA and doing okay. No abnormal bleeding or bruising to report. He is to follow up with vascular as scheduled. May, Anxiety and depression (ICD-10 - F41.8) Patient states that here of late his anxiety and depression have been worse due to his medical condition and fear of losing his job. I will keep him on the celexa and add Rexulti. I will see him again in 1 month. He is to start at 0.5 mg daily for 7 days and then go up to 1 mg daily thereafter. Samples provided May, Hyperlipidemia (ICD-10 - E78.5) Patient has been started on pravachol and zetia for the hyperlipidemia, especially since he had the right iliac occlusion. From a cardiovascular stand point he needs to be on statin therapy. He does have some myalgia on this medication. I am going to stop the pravachol and start him on crestor 5 mg 2 days per week and take the zetia 2 days per week. This should help with the myalgia May, Osteoarthritis of cervical spine, unspecified spinal osteoarthritis complication status (ICD-10 - M47.812) Patient has been under the care of neurologist now for sometime. He had been receiving epidural injections in the neck from pain medicine which do help somewhat. He has been having the dizziness and for the most part that has improved. He still has some when he turns his head to the left. I do want patient to get in writing by the neurologist neftaly he is okay to return to work before I provide him that consent. [facility] 12-13-2023 Evaluation note* Encounter Date Diagnosis Assessment Notes Treatment Notes Treatment Clinical Notes May, Status post insertion of iliac artery stent (ICD-10 - Z95.828) Patient is doing well after his right external iliac artery stent placement. There was a chronic total occlusion. I did review the patient's ABIs today. They are normal. He has excellent normal blood flow to the right foot at this time. He is very pleased with his results. I told him that he needs to quit smoking now as promised. He agrees to do so. I will see him in 3 months. [facility] 11-28-2023 Evaluation note* Encounter Date Diagnosis Assessment Notes Treatment Notes Treatment Clinical Notes Apr, Claudication of both lower extremities (ICD-10 - I73.9) 62 yr old male medical history significant for squamous cell, status post head and neck surgery with tongue resection and lymph node dissection in 2019, hypertension, hyperlipidemia, osteoarthritis of the cervical spine who presents as a referral by Dr Griselda Krause for dizziness and brain fog. Pt reports he feels off and unbalanced. EKG done at recent office visit, showed first degree AV block and occasional PAC's. In September 2020 had a negative GXT stress and echocardiogram done, EF 60-65% and no significant valve disease. He also wore a 48-hour Holter in 2020 that was negative for any arrhythmias or high-grade AV block. Assessment: Lightheadedness without syncope. Associated with left near tinnitus Intermittent claudication s/p PTCA by vascular surgery Plan: -No concern for cardiac etiology of current symptoms. He has had negative cardiac work-up in the past without any significant arrhythmias or structural heart disease. Agree with continued neurological evaluation given history of symptoms relief with lumbar puncture. Has CTA pending. -We will refer to ENT for further evaluation of severe left-sided tinnitus, balance issues and lightheadedness. May have component of Meniere's disease. - He is s/p right common iliac and external iliac artery angioplasty and stenting. Pt states he is intolerant to lipitor. Will start Pravastatin 40mg daily and Ezetimibe 10mg daily. - Follow up in 3 months Apr, Lightheadedness (ICD-10 - R42) [facility] [id number] [facility] Encounter Date Diagnosis Assessment Notes Treatment Notes Treatment Clinical Notes Apr, Right leg claudication (ICD-10 - I73.9) Apr, PAD (peripheral artery disease) (ICD-10 - I73.9) Patient is describing severe lifestyle limiting claudication of the right lower extremity. His left leg is completely normal. This patient does have asymmetrical disease. Due to the worsening symptoms I am recommending a diagnostic and possibly therapeutic angiography. I do not believe an exercise regimen is appropriate for this patient given his worsening symptoms and disease asymmetricality. This patient likely has femoral artery occlusive disease based on clinical exam and arterial noninvasive studies. The risks and benefits were explained as well as medical surgical alternatives. We also discussed the potential complications and their management. I gave him a PAD handout and reviewed each page individually today. He understands and wishes to proceed all his questions were addressed and consent was obtained. [facility] 11-14-2023 Evaluation note* Encounter Date Diagnosis Assessment Notes Treatment Notes Treatment Clinical Notes Apr, Tinnitus of both ear s (ICD-10 - H93.13) The patient declines ENT referral at this time, he states he has been advised by pain management that his tinnitus could be related to cervical spine pain and perfers to wait and see if upcoming epidural injections bring any improvement. 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 He states he has an upcoming cervical epidural scheduled. The patient remains out of work on f[employer] disability , he voices interest in returning to work soon. Apr, PAD (peripheral artery disease) (ICD-10 - I73.9) Arterial studies ordered by sander machine indicating peripheral artery disease. The patient does report lower extremity pain and heaviness and I recommend it would be beneficial to consult with a vascular specialist. The patient is in agreement, therefore a referral was initiated. A CTA has been ordered by neurologist , appointment pending [facility] scheduling. Apr, Hyperlipidemia (ICD-10 - E78.5) Blood work results reveiwed with the patient. Total cholesterol is 224, HDL is 44 and LDL is 148 . The patient states his neuroloigist started him on Atorvastatin but the patient has stopped this on his own some time ago. I recommend the patient restart the medication that he has at home. The patient vocies understanding. We will continue to monitor. [facility] 10-26-2023 Evaluation note* Encounter Date Diagnosis Assessment Notes Treatment Notes Treatment Clinical Notes Mar, Claudication (ICD-10 - I73.9) [facility] 10-25-2023 Evaluation note* Encounter Date Diagnosis Assessment Notes Treatment Notes Treatment Clinical Notes Mar, Claudication of both lower extremities (ICD-10 - I73.9) 62 yr old male medical history significant for squamous cell, status post head and neck surgery with tongue resection and lymph node dissection in 2019, hypertension, hyperlipidemia, osteoarthritis of the cervical spine who presents as a referral by Dr Griselda Krause for dizziness and brain fog. Pt reports he feels off and unbalanced. EKG done at recent office visit, showed first degree AV block and occasional PAC's. In September 2020 had a negative GXT stress and echocardiogram done, EF 60-65% and no significant valve disease. He also wore a 48-hour Holter in 2020 that was negative for any arrhythmias or high-grade AV block. Assessment: Lightheadedness without syncope. Associated with left near tinnitus Intermittent claudication Plan: -No concern for cardiac etiology of current symptoms. He has had negative cardiac work-up in the past without any significant arrhythmias or structural heart disease. Agree with continued neurological evaluation given history of symptoms relief with lumbar puncture. Has CTA pending. -We will refer to ENT for further evaluation of severe left-sided tinnitus, balance issues and lightheadedness. May have component of Meniere's disease. -Will check MARK and arterial Dopplers to evaluate for PAD given intermittent claudication. -Follow-up in 4 weeks Mar, Lightheadedness (ICD-10 - R42) [facility] 10-24-2023 Evaluation note* Encounter Date Diagnosis Assessment Notes Treatment Notes Treatment Clinical Notes Mar, Elevated blood pressure reading (ICD-10 - R03.0) [facility] 09-28-2023 Evaluation note* Encounter Date Diagnosis Assessment Notes Treatment Notes Treatment Clinical Notes Feb, Osteoarthritis of cervical spine, unspecified spinal osteoarthritis complication status (ICD-10 - M47.812) The patient encouraged to continue following with and I suggest he advise pain managment his pain now on the left side following right side ablation. Feb, Elevated blood pressure reading (ICD-10 - R03.0) Symptoms have improved since discontinuing Olmestartin which has resulted in his blood pressure elevating. I suggest the patient try the above medication positive and negative side effects reviewed. I recommend we extend his work leave for another two weeks, return to work date 04/02/23 . I will re-evalaute prior to that. Feb, Dizziness (ICD-10 - R42) Feb, Left ear pain (ICD-10 - H92.02) The bilateral ears are totally clear to the TM with no impacted cerumen or signs of infection. Feb, Burning sensation (ICD-10 - R20.8) [facility] 09-21-2023 Evaluation note* Encounter Date Diagnosis Assessment Notes Treatment Notes Treatment Clinical Notes Feb, Elevated blood pressure reading (ICD-10 - R03.0) The patient states he has expericeced body aches , dizziness and left ear congestion since starting Olmesartan. Arrhythmia noted upon ausculation. At this time I recommend the patient stop Olmesartan and monitor his symptoms.An in house EKG ordered and reviewed. I will see the patient back in one week to monitor and if his symptoms have resolved I will consider releasing him back to work 03/18/23. Feb, Osteoarthritis of cervical spine, unspecified spinal osteoarthritis complication status (ICD-10 - M47.812) The patient encourged to continue following with pain management, he will have an ablation performed tomorrow 03/08/23.The patient has been off work for the past 18 months due to neurology deficits , he has been following with neurology for evaluation and treatment . The patient has recieved a letter from Neurologist relasing him to return to work 03/18/23. Feb, Right sided numbness (ICD-10 - R20.0) Feb, Left ear pain (ICD-10 - H92.02) The patient states he has been to the ER and urgent care for left ear pain. Upon examination the ear is clear to the TM with no indication of bulging or infection. Feb, Cardiac arrhythmia, unspecified cardiac arrhythmia type (ICD-10 - I49.9) Arrhythmia noted upon auscultation. A normal cardiac stress test and echocardiogram performed two years ago. A normal in house EKG ordered and performed today . Feb, Dizziness (ICD-10 - R42) The patient reports onset of dizziness when he started Olmesartan. A normal in house EKG ordered and reviewed with the patient today.The patient advised to stop Olmesartan and monitor sympotms . I will see him back in one week to re-evaluate . I will make a determination on return to work date at that time. Feb, Dyshidrotic eczema (ICD-10 - L30.1) The patient instructed to apply the above topical cream to the right index finger. We will continue to monitor. [facility] 07-13-2023 Hospital Discharge instructions Diet Plan/Instructions at Discharge from 12/28/2022 8:23 AM: * Diet Restrictions : Resume Home Diet ED Discharge Education Evaluation from 12/28/2022 7:08 AM: * Discharge Instruction : Reviewed Discharge Instructions with Patient/Significant Other Medication Plan/Information for Discharge from 12/28/2022 8:23 AM: * Discharge Medication : None Patient Transfer Information from 12/28/2022 8:35 AM: * LOC : Drowsy Physician Follow-up Plan/Appointments from 12/28/2022 8:23 AM: * Discharge Physician: : Lima Joseph MD ([id number]) - Anesthesiology, Pain Management * Discharge Physician Phone: : [phone] [facility] [address], [facility] [address] Special Plan/Instructions for Discharge from 12/27/2022 10:26 AM: * Special Instructions : Spoke to patient Wound Care Instruction for Discharge from 12/27/2022 10:26 AM: * Special Instructions : Spoke to patient [facility] 06-20-2023 Evaluation note* Encounter Date Diagnosis Assessment Notes Treatment Notes Treatment Clinical Notes Nov, Anxiety and depressi on (ICD-10 - F41.8) Anxiety /depression appears to be controlled at this time. Pt is to continue with the above medication and we will continue to monitor. Nov, Osteoarthritis of cervical spine, unspecified spinal osteoarthritis complication status (ICD-10 - M47.812) Pt is to continue with the above medication and we will continue to monitor. Nov, Sore throat (ICD-10 - J02.9) In house strep test is negative . I did prescribe the above medication and encouraged pt to increase fluid intake, throat lozenges or gargle with mouth wash as needed. Pt is to also take OTC pain medication and fever reducers as needed. Nov, Lymphadenopathy of head and neck (ICD-10 - R59.9) The patient encouraged to continue following with neurologist or cervical injections and possible ablation.The patient states he is not getting as dizzy , vision is better for longer periods of time. Per patient his medical leave extension is due to 12/16/22, Dr. Cadena would like to try and get him back to work by the end of summer . I am in agreement to continue his medical leave for another three months, the patient will have the medical forms sent to the office to be completed. [facility] 05-12-2023 NoteHNO ID: [id number] Author: RT Craig(R) Service: ? Author Type: Technologist Type: Progress Notes Filed: 10/27/2022 11:56 AM Note Text: RADIOLOGY SERVICE PROGRESS NOTE SERVICE DATE: 10/27/2022 SERVICE TIME: 11:55 AM PATIENT IDENTITY VERIFICATION COMPLETED USING TWO (2) STANDARD IDENTIFIERS: Name and Date of confirmed by patient verbally FALL SCREENING: Has the patient had 2 falls in the last year or 1 fall with injury or currently using an Ambulatory Assistive Device (Walker, Cane, Wheelchair, Crutches, etc.)? No PATIENT GENDER DATA: .male : No ALLERGIES: Reviewed and unchanged MEDICATIONS REVIEWED: Not applicable PATIENT RELEVANT IMPLANT DATA REVIEWED: Not Applicable CREATININE: Creatinine Date Value Ref Range Status 10/27/2022 0.93 0.73 - 1.22 mg/dL Final 10/06/2021 1.01 0.73 - 1.22 mg/dL Final 10/08/2020 0.90 0.73 - 1.22 mg/dL Final Estimated Glomerular Filtration Rate Date Value Ref Range Status 10/27/2022 95 >=60 mL/min/1.73m? Final Comment: Estimated Glomerular Filtration Rate (eGFR) is calculated using the 2020 CKD-EPI creatinine equation. This equation utilizes serum creatinine, sex, and age as parameters. The creatinine assay has traceable calibration to isotope dilution-mass spectrometry. Refer to KDIGO guidelines for clinical interpretation. In patients with unstable renal function, e.g. those with acute kidney injury, the eGFR may not accurately reflect actual GFR. eGFR- Date Value Ref Range Status 10/08/2020 >60 Final P.O.C.T. RESULTS: N/A October 27, [address] PERFORMED: Yes. RADIOLOGIST NOTIFIED?: No CONTRAST ALLERGY: NO. PREMEDICATED: No CONTRAST: IV 100 ml IV contrast (300) given DIABETIC PATIENT: Not applicable IV SITE: Ambulatory: A peripheral IV was started in the Right antecubital site with a Angio cath: 20 gauge. POST EXAM PIV STATUS: Discontinued PROCEDURE TYPE: CT Chest with contrast and neck with PATIENT DISCHARGED TO: Ambulatory patient, left [place] department area. A Diagnostic radioactive procedure has taken place, with no further precautions necessary other than routine body substance precautions. More information regarding radiation safety can be found using this link: [email or web address] SIGNATURE: RT Craig(R) PATIENT NAME: Jovani Melendez DATE: October 27, 2022 TIME: 11:55 AM PAGER/CONTACT #:[facility]05-02-2023 NoteHNO ID: [id number] Author: Arsenio Jackson MD Service: ? 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-shunt Explained vasc claudication as possible cause for R calf pain Reassured him 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 He is following up with his Neurologist I spent 30 mins reviewing the chart and discussing a plan of care Arsenio Jackson MD [facility] NoteHNO ID: [id number] Author: RT Julio(R) Service: Radiology Author Type: Technologist Type: Progress Notes Filed: 09/22/2022 2:52 PM Note Text: Radiology Service Progress Note DATE OF SERVICE: September 22, 2022 TIME: 2:39 PM PATIENT IDENTITY VERIFICATION COMPLETED USING TWO (2) STANDARD IDENTIFIERS: Name and Date of confirmed by patient verbally and Name and Date of confirmed by identification band. FALL SCREENING: Has the patient had 2 falls in the last year or 1 fall with injury or currently using an Ambulatory Assistive Device (Walker, Cane, Wheelchair, Crutches, etc.)? No PATIENT GENDER DATA: Male PATIENT RELEVANT IMPLANT DATA REVIEWED: Yes ALLERGIES: Reviewed and unchanged CONTRAST ALLERGY: NO. EXAM: MRI - CONTRAST TYPE: GROUP II PERIPHERAL IV DATA: Ambulatory: A peripheral IV was started in the Right antecubital site with a Butterfly: 23 gauge. RADIOLOGY DEPARTMENT: MR; Exam(s) Completed: Head: IAC/CPA SIGNATURE: RT Julio(R) PATIENT NAME: Jovani Melendez DATE: September 22, 2022 TIME: 2:39 [facility]04-07-2023 History of Present illness Narrative* RT Julio(R) - 09/22/2022 3:00 PM EDT Radiology Service Progress Note DATE OF SERVICE: September 22, 2022 TIME: 2:39 PM PATIENT IDENTITY VERIFICATION COMPLETED USING TWO (2) STANDARD IDENTIFIERS: Name and Date of confirmed by patient verbally and Name and Date of confirmed by identification band. FALL SCREENING: Has the patient had 2 falls in the last year or 1 fall with injury or currently using an Ambulatory Assistive Device (Walker, Cane, Wheelchair, Crutches, etc.)? No PATIENT GENDER DATA: Male PATIENT RELEVANT IMPLANT DATA REVIEWED: Yes ALLERGIES: Reviewed and unchanged CONTRAST ALLERGY: NO. EXAM: MRI - CONTRAST TYPE: GROUP II PERIPHERAL IV DATA: Ambulatory: A peripheral IV was started in the Right antecubital site with a Butterfly: 23 gauge. RADIOLOGY DEPARTMENT: MR; Exam(s) Completed: Head: IAC/CPA SIGNATURE: RT Julio(R) PATIENT NAME: Jovani Melendez DATE: September 22, 2022 TIME: 2:39 PM documented in this encounterThe [facility] System04-05-2023 Miscellaneous Notes* Telephone Encounter - Akash Menezes RN - 09/20/2022 1:00 PM EDT Called and spoke with pt via phone. Notified pt that per Kelton SAAVEDRA, the vestibular schwannoma could effect pt's hearing but would not cause his other symptoms. Also notified pt that a brain MRI has been ordered and should be done prior to his appointment with Dr. Jackson. Pt verbalized understandingand denies any further needs at this time. * Telephone Encounter - Kelton Perez PA-C - 09/20/2022 11:24 AM EDT Vestibular schwannoma causes hearing loss. Doubtful that it would cause the other symptoms but thisshould be addressed with Dr. Jackson. We should repeat another MRI brain with and without contrast for further follow up on this. * Telephone Encounter - Akash Menezes RN - 09/18/2022 12:37 PM EDT Called patient via phone. Pt states that his MRI shows a 2mm vestibular schwannoma an brain stem spots . Pt wants to know: could vestibular schwannoma be causing symptoms? Message sent to Kelton SAAVEDRA for review and recommendation. * Telephone Encounter - Selam Mandel - 09/18/2022 12:20 PM EDT General Call Caller : Jovani Contact Reason for Call : Pt has follow up questions after most recent visit. Patient requesting return call ? Yes documented in this encounterThe [facility] System03-29-2023 NoteHNO ID: [id number] Author: Kelton Perez PA-C Service: ? Author Type: Physician Loan Operations Manager Type: Progress Notes Filed: 09/20/2022 11:24 AM Note Text: This note was created using SoPostriter. 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 Only high-risk feature is the node being greater than 3 cm. 6mm CARMEL pulmonary nodule December 2018. Typically he has pain behind the R eye, balance difficulties, R side of the head pressure, R leg pain with walking (calf feels like it is going to explode ), blurry vision, pain in the base of the skull radiating up to the top of the head. Occasionally, he gets R ear pressure as well. Symptoms started about a year ago.He reports the symptoms as daily. Lying down on the back of the head cause more head pain. Only thing that makes the symptoms better are spinal taps. He reported improvement of all of these symptoms x 24 hours. He has had 2 spinal taps in the past with improvement in symptoms both times. One LP OP was measured at 17.5. Because his symptoms improved with the spinal tap, he was started on diamox. He has not noticed any improvement with this. He did have an eye exam and was told his R optic nerve is slightly larger than the L. He has urinary urgency related to diamox. No incontinence, no short term memory loss. Review of Systems Constitutional: Positive for fatigue. Negative for fever. HENT: Positive for tinnitus and trouble swallowing. Eyes: Positive for pain and visual disturbance. Respiratory: Positive for cough. Negative for wheezing. Cardiovascular: Negative for chest pain and leg swelling. Gastrointestinal: Negative for nausea and vomiting. Genitourinary: Positive for frequency and urgency. Musculoskeletal: Positive for gait problem. Neurological: Positive for dizziness and headaches. Psychiatric/Behavioral: Negative for dysphoric mood. The patient is not nervous/anxious. Objective There were no vitals taken for this visit. Physical Exam Constitutional: Appearance: Normal appearance. HENT: Head: Normocephalic and atraumatic. Eyes: Extraocular Movements: Extraocular movements intact. Conjunctiva/sclera: Conjunctivae normal. Pulmonary: Effort: Pulmonary effort is normal. No respiratory distress. Skin: General: Skin is warm and dry. Neurological: General: No focal deficit present. Mental Status: He is alert and oriented to person, place, and time. Cranial Nerves: No dysarthria or facial asymmetry. Motor: No weakness or pronator drift. Coordination: Romberg sign negative. Nvtqyw-Bqpe-Cuxjtf Test normal. Gait: Gait abnormal. Comments: Slightly off balance and wide gait Tandem walk was difficult Assessment and Plan Eval for comm hydro vs IIH H/o tongue squamous cell carcinoma S/o balance issues, R sided head pain, r ear pain, R calf pain, blurry vision, pain in base of skull radiating to top of head. Symptoms x 1 year 2 LPs with one OP taken of 17.5 Improvement of symptoms with both LPs x 24 hours Per pt report ophthalmology states R eye nerve slightly larger than left Referred for consideration of shunt. MRI brain does not show evidence of hydrocephalus Last MRI brain 01/2022 unable to view due to computer not loading. Will upload this to pt chart Based on pt report of improvement in symptoms after both LPs, and MD/Neurology referral, will recommend IR LP, high volume. Pt given instructions to video tape prior to and after LP. Explicit instructions provided to them on how to video tape. Pt will f/u with Dr. Jackson for consideration of surgical intervention after LP completed. MRI brain completed in September of 2021 and results in scanned documents. MRI shows T2 hyperintense lesions in the naldo that cross midline. Etiology unknown. Also noted was a small possible vestibular schwannoma on the R. There appears to be an MRI brain w/ and w/o from january but no results are available. Based on those results, he may need to be evaluated with a MRI brain w/ and w/o contrast and correct referrals placed. I will communicate with pt via my chart for these orders. Pt may still follow up with Dr. Jackson for appropriate referrals. I spent a total of 50 minutes on the date of the service which included preparing to see the patient, ekhi-rl-herb patient care, completing clinical documentation, obtaining and/or reviewing separately obtained history, performing a medically appropriate examination, counseling and educating the patient/family/caregiver, ordering medications, tests, or procedures, communicating with other HCPs (not separately reported), independently interpreting results (not separately reported), communicating results to the patient/family/caregiver, and care coordination (not separately reported).[facility]03-29-2023 Instructions* Patient Instructions* Kelton Perez PA-C - 09/13/2022 11:29 AM EDT Wean diamox by 250 mg every 2-3 days. MAy do LP after off of diamox x 1 week. 750 x 3 days 500 x 3 days 250 x 3 days Video tape patient anytime prior to the LP and then the afternoon of the LP. Instructions for taping: Have pt seated, video tape them standing, walking 20 feet, turning around and then walking back andsitting back down. IMPORTANT! Pre video tape can be done any time. Post video tape should be done the afternoon of the LP. Both videos will need to be presented to Dr. Jackson for consideration of shunt implantation. please wear same footwear and perform on same dariusz. documented in this encounterThe [facility] System03-29-2023 Nurse Note* Antonia Tripathi MA - 09/13/2022 10:55 AM EDT Additional intake questions: Has the patient had fever, nausea, vomiting, diarrhea, constipation, fatigue for > 1 week? Yes, diarrhea ( 3 times in last 24 hours), fatigue, and Provider Notified Does the patient have a decreased appetite? No Does patient want to see a Register Clerk? No (yes to any of above refer patient to schedulers for dietitian appointment) ) Does patient have any new or increased numbness or tingling of extremities? Yes, left fingers tingling, pain in r calf Is patient interested in fertility information? No Does patient need any prescription refills? No Does patient have an advanced directive in place? No, Patient referred to Resource Center Electronically Signed By: Antonia Tripathi MA documented in this encounterThe [facility]03-29-2023 History of Present illness Narrative* Kelton Perez PA-C - 09/13/2022 10:44 AM EDT This note was created using SoPostriter. 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 Only high-risk feature is the node being greater than 3 cm. 6mm CARMEL pulmonary nodule December 2018. Typically he has pain behind the R eye, balance difficulties, R side of the head pressure, R leg pain with walking (calf feels like it is going to explode ), blurry vision, pain in the base of the skull radiating up to the top of the head. Occasionally, he gets R ear pressure as well. Symptoms started about a year ago.He reports the symptoms as daily. Lying down on the back of the head cause more head pain. Only thing that makes the symptoms better are spinal taps. He reported improvement of all of these symptoms x 24 hours. He has had 2 spinal taps in the past with improvement in symptoms both times. One LP OP was measured at 17.5. Because his symptoms improved with the spinal tap, he was started on diamox. He has not noticed any improvement with this. He did have an eye exam and was told his R optic nerve is slightly larger than the L. He has urinary urgency related to diamox. No incontinence, no short term memory loss. Review of Systems Constitutional: Positive for fatigue. Negative for fever. HENT: Positive for tinnitus and trouble swallowing. Eyes: Positive for pain and visual disturbance. Respiratory: Positive for cough. Negative for wheezing. Cardiovascular: Negative for chest pain and leg swelling. Gastrointestinal: Negative for nausea and vomiting. Genitourinary: Positive for frequency and urgency. Musculoskeletal: Positive for gait problem. Neurological: Positive for dizziness and headaches. Psychiatric/Behavioral: Negative for dysphoric mood. The patient is not nervous/anxious. Objective There were no vitals taken for this visit. Physical Exam Constitutional: Appearance: Normal appearance. HENT: Head: Normocephalic and atraumatic. Eyes: Extraocular Movements: Extraocular movements intact. Conjunctiva/sclera: Conjunctivae normal. Pulmonary: Effort: Pulmonary effort is normal. No respiratory distress. Skin: General: Skin is warm and dry. Neurological: General: No focal deficit present. Mental Status: He is alert and oriented to person, place, and time. Cranial Nerves: No dysarthria or facial asymmetry. Motor: No weakness or pronator drift. Coordination: Romberg sign negative. Evqprj-Oqrt-Ceqnro Test normal. Gait: Gait abnormal. Comments: Slightly off balance and wide gait Tandem walk was difficult Assessment and Plan Eval for comm hydro vs IIH H/o tongue squamous cell carcinoma S/o balance issues, R sided head pain, r ear pain, R calf pain, blurry vision, pain in base of skull radiating to top of head. Symptoms x 1 year 2 LPs with one OP taken of 17.5 Improvement of symptoms with both LPs x 24 hours Per pt report ophthalmology states R eye nerve slightly larger than left Referred for consideration of shunt. MRI brain does not show evidence of hydrocephalus Last MRI brain 01/2022 unable to view due to computer not loading. Will upload this to pt chart Based on pt report of improvement in symptoms after both LPs, and MD/Neurology referral, will recommend IR LP, high volume. Pt given instructions to video tape prior to and after LP. Explicit instructions provided to them on how to video tape. Pt will f/u with Dr. Jackson for consideration of surgical intervention after LP completed. I spent a total of 50 minutes on the date of the service which included preparing to see the patient, irhd-in-brpj patient care, completing clinical documentation, obtaining and/or reviewing separately obtained history, performing a medically appropriate examination, counseling and educating the pat ient/family/caregiver, ordering medications, tests, or procedures, communicating with other HCPs (not separately reported), independently interpreting results (not separately reported), communicatingresults to the patient/family/caregiver, and care coordination (not separately reported). documented in this encounterThe [facility]03-16-2023 Evaluation note* Encounter Date Diagnosis Assessment Notes Treatment Notes Treatment Clinical Notes Aug, Intracranial pressure increased (ICD-10 - G93.2) Pt reports his inter cranial pressure was 17.5 in June. They did aspirate some fluid, and all of his symptoms resolved. Dr. Carney did refer to his symptoms as pseudotumor cerebri. We did discuss a cerebral- peritoneal shunt, and pt reports his daughter had one placed in her mid twenties. He will see the CORPORATE HUMAN RESOURCES MANAGER at Dr. Cadena's office today, and will see the [facility] 09/13/22. I do feel pt needs his FMLA extended until 12/16/22. I encouraged him to continue to follow with these doctors, and we will continue to monitor. [facility] 02-14-2023 Evaluation note* Encounter Date Diagnosis Assessment Notes Treatment Notes Treatment Clinical Notes Jul, Sinus pressure (ICD-10 - J34.89) Negative in house influenza, COVID-19 obtained, RSV is positive. Jul, Osteoarthritis of cervical spine, unspecified spinal osteoarthritis complication status (ICD-10 - M47.812) Review of neurosurgeon consult notes with the patient , spinal tap obtained noting Intracranial pressure quesionable pseudotumor cerebri. Discussion was had treatment generally requires a shunt. The patient encouraged to follow up with neurologist later this week and will likely be referred back to . At this time the patient is off work until 09/16/22. Jul, Insomnia, unspecifie d type (ICD-10 - G47.00) Pt is to continue with the above medication and we will continue to monitor. 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 I did prescribe the above medication and encouraged pt to increase fluid intake, throat lozenges or gargle with mouth wash as needed. Pt is to also take OTC pain medication and fever reducers as needed. [facility] 01-11-2023 Evaluation note* Encounter Date Diagnosis Assessment Notes Treatment Notes Treatment Clinical Notes Jun, Other complicated headache syndrome (ICD-10 - G44.59) [facility] 12-09-2022 Evaluation note* Encounter Date Diagnosis Assessment Notes Treatment Notes Treatment Clinical Notes May, Osteoarthritis of cervical spine, unspecified spinal osteoarthritis complication status (ICD-10 - M47.812) Patient is under the care of the neurologist, Dr. Cadena, and he did have an MRI of the neck today. Results are pending. Patient states that Dr. Cadena is referring him on to Dr. Carney once the MRI results have been obtained. Patient reports no improvement with his symptoms. States physical therapy has not been helpful. He continues to have the neck pain, dizziness, lightheadedness. At this time I am keeping patient out of work for additional 3 months for possible return to work on 09/16/2022. Patient encouraged to contact Dr. Cadena's office on appointment with Dr. Carney. May, Lightheadedness (ICD-10 - R42) No improvement with the lightheadedness/d izziness when he looks up. Vision will get impaired per patient report. MRI of the C-spine is pending and awaiting referral to Dr. Carney May, Headache (ICD-10 - R51.9) Patient reports indocin was recently started for the headaches. Patient reports no real improvement with the standard migraine medications May, Neck pain (ICD-10 - M54.2) Patient is using the the muscle relaxer as needed May, Insomnia, unspecifie d type (ICD-10 - G47.00) Patient reports that his sleep has been disturbed with the pain her has in the neck. I am going to try him on some hydroxyzine to see if this helps. We will check on him again in 1 month. [facility] 10-30-2022 Hospital Discharge instructions Additional Instructions As we discussed, we did not find a specific cause for your pain. This is not unusual. The important thing is that we did not find anything dangerous. I am going to prescribe you medication for your pain. If you have any concerns or problems, please do come back. I recommend that you follow-up with your primary care doctor this week to see how you are doing. [facility] [place] Work Phone: [phone] Miscellaneous Notes* Telephone Encounter - Memo Cole MD - 03/27/2022 3:54 PM EDT Good with me * Telephone Encounter - Asya Greene RN - 03/27/2022 2:17 PM EDT Informed patient of your recommendations. He states that he is seeing neurology in [place] and they do not feel he needs to see NS at this point. They are treating him for occipital neuralgia currently. Patient plans to cancel NS appointment. Asya Greene RN * Telephone Encounter - Memo Cole MD - 03/27/2022 2:00 PM EDT I don't quite remember what the discussion was - and Helene is gone - I think still worthwhile seeing NS. - not sure what prompted the call 5 months later.... * Telephone Encounter - Asya Greene RN - 03/27/2022 12:13 PM EDT Patient got a text over the weekend about an appointment with a [facility] neurosurgeon. He has not seen you since 10/2021. He states st that time you did not see the need for a neurosurgeon as his tumor wastoo small. Now he all of the sudden has an appointment with this [facility] neurosurgeon and is confused. Can you review and advise as to this appointment with the neurosurgeon. Asya Greene RN documented in this encounterThe [facility]health System09-29-2022 Miscellaneous Notes* Telephone Encounter - Pamela Nascimento APRN.CNP - 03/16/2022 2:51 PM EDT Time Frame: Next available Provider: Intra-axial neurosurgeon & Neuro-Oncology (same day) Referring: Memo Cole MD Please instruct patient to hand carry/ upload images prior to appt Dx: Low grade glioma Patient: Jovani Melendez Address: Jovani Melendez [id number] [place] [id number] Per Triage: Jovani Melendez is a 61 year old male that requests evaluation of previously diagnosed possible low grade glioma. Patient expectations: Second opinion Tumor Specifics: Location: brain Previous Evaluations: MRI w/wo contrast (10/05/21): 10/05/[address] [facility] [place] [facility] Impression: 1. There is T2 and T2 flair hyperintense signal predominantly to the right of midline in the naldo but also involving the left anterior naldo with extension to the right facial colliculus and base of the right middle cerebellar pedicle. No accompanying diffusion restriction is noted. There is no accompanying abnormal postcontrast enhancement. This is of uncertain etiology with a differential including, a low-grade glial tumor, sequelae of previous demyelination. Other etiologies include posteriorreversible encephalopathy syndrome should also be entertained. This is unlikely to represent sequelae of vascular ischemia as the lesion appears to cross midline into the left side of the naldo. 2. There appears to be a 2 mm focus of nodular enhancement at the apex of the right internal auditory canal. 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 Details within body of report: 1. Mild diffuse age-related cortical atrophy. In the cerebral parenchyma: There are a few scatteredpunctate periventricular and subcortical white matter T2 and FLAIR hyperintense foci suggesting mild chronic microvascular ischemic change. 2. Brainstem: There is T2 and T2 flair hyperintense signal predominantly to the right of midline inthe naldo but also involving the left anterior naldo with extension to the right facial colliculus and base of the right middle cerebellar peduncle. No accompanying diffusion restriction is noted. There is no accompanying abnormal postcontrast enhancement. Previous Treatments: N/A Impression: As above. Pamela Nascimento APRN.CNP March 16, 2022 * Telephone Encounter - Florentino Guan Coord - 03/16/2022 12:26 PM EDT MD Memo Gomez MD Future Order Information Expires 10/13/22 Associated Diagnoses Glioma of brain (HCC) [C71.9] Reason for Exam Priority: Routine Dx: Glioma of brain (HCC) [C71.9 (ICD-10-CM)] Order Questions Question Answer [facility] Epic access? Yes documented in this encounterThe Metrohealth System09-29-2022 Evaluation note* Encounter Date Diagnosis Assessment Notes Treatment Notes Treatment Clinical Notes Feb, Abnormal brain MRI (ICD-10 - R90.89) At neurology appointment on 03/14/2022 it was recommended that patient is to remain off work due to neurological evaluation and continued symptoms he is having. Further treatment in process per neurologist. See scanned note. Patient is following up with Neurologist on 04/18/2022 and I will follow him up shortly after for continuity of care and determine return to work date. At this time I am going to keep patient out of work through 06/18/2022 to allow time for completion of neurological workup and treatment. Note provided to patient in office today. Feb, Migraine (ICD-10 - G43.909) Patient has been under the care of neurologist. Patient did receive 2 injections in the back of the head at last visit this week and this did provide him with some relief at the present time. Feb, Cough (ICD-10 - R05.9) Patient has productive cough with colored sputum. He has been exposed by grandchildren that are ill. Feb, Sinus pain (ICD-10 - J34.89) Covid testing and flu testing is negative. Patient does have the sinus drainage that is now colored. I am going to give patient a Z pack and Medrol Dose Pack to see if this gives him some relief [facility] 08-15-2022 Evaluation note* Encounter Date Diagnosis Assessment Notes Treatment Notes Treatment Clinical Notes Jan, Right sided numbness (ICD-10 - R20.0) We will continue to monitor. Jan, Headache (ICD-10 - R51.9) Patient reports improvement in headache with starting the qulipta. He was originally started on topamax but he did have negative side effects with taking that.I recommend the patient reamin off work but to also discuss with Dr. Cadena to make sure we are all on the same page. 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 We are awaiting for the results to be faxed over. Patient is to continue to follow with Dr. Caedna as scheduled. Jan, Anxiety and depression (ICD-10 - F41.8) Patient is to continue with the above medication. Jan, Visual disturbance (ICD-10 - H53.9) Patient does continue with visual disturbance, therefore the patient is to remain off work. We will follow up in two weeks. Jan, Fullness in head (ICD-10 - R68.89) Patient has recently started following with Dr. Elvi Cadena, they are planning to do another spinal punture in the near future. Patient is scheduled to follow up again next week. We are awaiting for [facility] to fax over the consult and MRI results. Jan, Neck pain (ICD-10 - M54.2) The patients neck pain is persistant but the headache has improved with a medication change. Discussed with Dr. Cadena his persistent neck pain, may need MRI of his neck and/or EMG. Due to his multiple other medications did hold off on any pain medications. 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 Espinal but the patient got no where. The patient voices interest in seeing Dr. Cadena since he is coming back into town. I am agreeable to refer the patient over to Dr. Cadena. Dec, Cervical pain (neck) (ICD-10 - M54.2) Patient is to continue with the above medication. Referral initiated to Dr. Cadena for a second opinion. Dec, Anxiety and depression (ICD-10 - F41.8) We will re-start the patient on celexa due to increase of anxiety. We will continue to monitor. Dec, Pressure in head (ICD-10 - R51.9) We are referring the patient over to Dr. Cadena for a second opinion. Dec, Elevated blood pressure reading (ICD-10 - R03.0) The patients blood pressure was elevated upon check in. 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 We will yadi over to Dr. Bolanos or Dr. Castanon to see if they will see the patient to further discuss a workup. I would like the patient to remain off work till then, atleast another two months off work, February 21. Nov, Cervical pain (neck) (ICD-10 - M54.2) The patient was referred to Dr. Silva from Dr. Hampton at the and then Dr. Silva referred the patient to Dr. Vigil at but the patient reports not being happy with his care. It was suggested we order a cervical MRI to further treat. The patient had conacted Dr. Vasquez's office and they said they will see the patient since Dr. Vigil stated there was not a brainstem lesion. I discussed with the patient I disagree with this statement due to the abnormalities from the MRI. I believe that the patient should not see a neurosurgoen and I would rather the patient see a neurologist Dr. Ortega or Dr. Bolanos since the patient reported improvement in symptoms after a spinal tap. Patient stated that oncologist and is concerned with a lesion in his brain as I am. Therefore we will try to have neurology evaluate to rule out other causes of his symptoms. 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 As above a spinal tap was performed yesterday after which the patient states his vision has improved although his back is sore. The patient will follow up results in two weeks with a virtual visit. I strongly encourage him to follow through with this follow up and notify my office with the results . The patient is off work until 11/17/21. In my opinion I am in agreement the patient stay off work through 12/20/21 and will complete the necessary medical disability forms. [facility] 05-17-2022 Evaluation note* Encounter Date Diagnosis Assessment Notes Treatment Notes Treatment Clinical Notes October, Glioma of brain (ICD-10 - C71.9) Patient has consulted neurosurgeon, Dr. Narayan, and he is now referring on to Dr. Jonny Vigil at the [facility] for 2nd opinion. Reviewed consult note from Dr. Narayan with patient. Patient will be seeing Dr. Vigil this week and we will follow up. Patient is currently off work until November 17, 2021 and we will see him again in a few weeks. October, Headache (ICD-10 - R51.9) Patient was started on Depakote by neurologist and this does seem to be helping with the headaches. Patient is to continue taking this medication. Will continue to follow up [facility] 05-12-2022 History of Present illness Narrative* Memo Cole MD - 10/27/2021 5:05 PM EDT Images from the original note were not included. NAME: Jovani Melendez CLINIC NO.: [id number] DATE OF SERVICE: October 27, 2021 Some elements in this clinic note that are critical to medical decision making have been carefully reviewed and included from a prior clinic note dated: October 13, 2021 Referring Provider: Griselda Krause, Additional Clinicians involved in Jovani Melendez's care: Dr Kimberly Nichole ENT, Dr. Ibarra [place] surgery [facility] AMBULATORY TELEPHONE VISIT Jovanikal Melendez has consented to this telephone encounter. Persons Present: patient Data Reviewed: Most recent imaging Outside chart from Dr. Narayan reviewed. CC: Head and neck cancer ASSESSMENT: 60 year old man who underwent selective right neck dissection (II-V) and bilateral baseof tongue/linguial tonsillar excision on 01/30/[address] 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 Pathology revealed 1 of 69 lymph nodes (Level II) positive for metastatic HPV+ SCCmeasuring 4.5 cm without extracapsular extension. 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 Only high-risk feature is the node being greater than 3 cm. He was advised at Tumor Board to undergo Radiation only. Active Smoking MRI done September 2021 for vision changes reports concern for possible low-grade glial tumor. I will refer him to neurosurgery for an opinion and management recommendations. PLAN: 1. RTC in 1 year - Repeat CT neck and chest, labs same day. RTC 1 week after to review. TREATMENT TO DATE: 1. 01/30/19 He had a neck dissection at [facility] HPI: Updated Visit, October 27, 2021: Telephone 6 minutes. 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 Dr. Nichole ENT Dr. Ibarra [place] surgery on license of [facility]. 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 At this point time I would really like the patient to be seen by another neurosurgeon, we have taken the opportunity of referring him on to see Dr. Jonny Vigil. [place] Other 05-04-2022 Miscellaneous Notes* Telephone Encounter - Haily Jovel [facility] - 10/19/2021 12:56 PM EDT Called [facility] Neuro Office spoke with Leslee. She states they have received patient records/referral and have patient scheduled to see Dr Narayan on 10/24. Haily Issa * Telephone Encounter - Asya Gramajo [facility] - 10/18/2021 10:34 AM EDT Records faxed. * Telephone Encounter - Haily Jovel [facility] - 10/13/2021 12:24 PM EDT Noelle: Information ready for you. Haily Jovel Pss * Telephone Encounter - Antonia Mcguire - 10/13/2021 10:33 AM EDT Referral to neurosurgery - Dr. Narayan or [facility] Noelle/Layo: Can you please refer patient and follow up? Thanks! Antonia Mcguire documented in this encounterMatthew Ville [id number] History of Present illness Narrative* Memo Cole MD - 10/13/2021 10:19 AM EDT Images from the original note were not included. NAME: Jovani Melendez NO.: [id number] DATE OF SERVICE: October 13, 2021 Some elements in this clinic note that are critical to medical decision making have been carefully reviewed and included from a prior clinic note dated:October 14, 2020 Referring Provider: Griselda Krause, DO Additional Clinicians involved in Jovani Melendez's care: Dr Kimberly Nichole ENT, Dr. Ibarra CT surgery [facility] CC: Head and neck cancer ASSESSMENT: 60 year old man who underwent selective right neck dissection (II-V) and bilateral baseof tongue/linguial tonsillar excision on 01/30/[address] 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 Pathology revealed 1 of 69 lymph nodes (Level II) positive for metastatic HPV+ SCCmeasuring 4.5 cm without extracapsular extension. 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 Only high-risk feature is the node being greater than 3 cm. He was advised at Tumor Board to undergo Radiation only. Active Smoking MRI done September 2021 for vision changes reports concern for possible low-grade glial tumor. I will refer him to neurosurgery for an opinion and management recommendations. PLAN: 1. Referral to neurosurgery - Dr. Narayan or Christina 2. Phone call in 2 weeks to follow up TREATMENT TO DATE: 1. 01/30/19 He had a neck dissection at [facility] HPI: Updated Visit, October 13, 2021: 1 month vision changes and had an MRI with possible low grade glial tumor. Hasn't been able to work due to anxiety. Unfortunately continues to smoke. Has been having light headedness, vision changes and generally just feeling off with balance. I reviewed his CT scans of the neck and chest with him finding no evidence of recurrence or progression. I also reviewed his MRI report and indicated that he will need a neurosurgical consultation. He is in agreement. Updated Visit, October 14, 2020: Doing well, still smokes, works at [employer]. Reviewed scans and there is no evidence of scarring or progressive disease. He does have chronic lung disease associated with tobacco useand perhaps has bronchiolitis of both upper lobe. He continues regular follow-up with ENT and Dr. Ibarra. Updated Visit, April 15, 2020: Jovani is 59 years old and returns today to review his scans as comparison from 6 months ago. He still demonstrates no evidence of recurrence but unfortunately continues to smoke. Try to reeducate himagain. He has minor dyspnea with chronic cough which is unchanged. Updated Visit, October 16, 2019: This is a 58 year old male returning to review scans today with his sig other Юлия. Reviewed his CT restaging scans with no evidence of recurrence. Encouraged smoking cessation by modifying cues. Past medical history includes anxiety, depression. Patient is a long time and current smoker 40py. He was in his usual state of health until beginning of october 2018. He was diagnosed with walking pneumonia, bronchitis and sinusitis. CXR performed concern for L pulmonary nodule. Labs performed on 11/12/18 showed normal hemoglobin, white blood cells, platelets. Slightly high absolute neutrophil countat 7800. PSA performed was 0.69. BMP was normal with calcium of 10.1, sodium and potassium within normal limits. Total protein of 6.3 with an albumin of 4.0. Creatinine was 0.83. Liver function studies were normal including alkaline phosphatase. TSH was 1.39. CT of the chest performed on 11/12/17 showed abnormal enlarging right jugulodigastric lymph node andmoderate mucosal thickening. Also noted irregular suspicious left upper lobe pulmonary nodule 6 mm. RADIOG RAPHIC DATA: Reviewed on October 13, 2021. 5. 10/06/2021 CT Neck - Chest w/Cont: Neck: 1. MODERATE DEGENERATIVE CHANGES INVOLVING THE CERVICAL SPINE. MODERATE ATHEROSCLEROSIS INVOLVING THE CAROTID BIFURCATIONS AND CAROTID SIPHONS. 2. OTHERWISE, UNREMARKABLE CT NECK WITH CONTRAST. NO SIGNIFICANTLY ENLARGED LYMPH NODES. Chest: 1. Left-sided subcentimeter pulmonary nodules, stable. 2. Nonspecific, sclerotic foci involving bilateral ribs, unchanged. 3. No substantial intrathoracic adenopathy is identified. 4. 10/05/[address] [facility] Impression: 1. There is T2 and T2 flair hyperintense signal predominantly to the right of midline in the naldo but also involving the left anterior naldo with extension to the right facial colliculus and base of the right middle cerebellar pedicle. No accompanying diffusion restriction is noted. There is no accompanying abnormal postcontrast enhancement. This is of uncertain etiology with a differential including, a low-grade glial tumor, sequelae of previous demyelination. Other etiologies include posteriorreversible encephalopathy syndrome should also be entertained. This is unlikely to represent sequelae of vascular ischemia as the lesion appears to cross midline into the left side of the naldo. 2. There appears to be a 2 mm focus of nodular enhancement at the apex of the right internal auditory canal. 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 Details within body of report: 1. Mild diffuse age-related cortical atrophy. In the cerebral parenchyma: There are a few scatteredpunctate periventricular and subcortical white matter T2 and FLAIR hyperintense foci suggesting mild chronic microvascular ischemic change. 2. Brainstem: There is T2 and T2 flair hyperintense signal predominantly to the right of midline inthe naldo but also involving the left anterior naldo with extension to the right facial colliculus and base of the right middle cerebellar peduncle. No accompanying diffusion restriction is noted. There is no accompanying abnormal postcontrast enhancement. 3. 10/08/2019 CT Neck/Chest: No evidence for mass or adenopathy in the neck. Interval resolution of previously identified right level II enlarged lymph node. No abnormalities identified in the mucosa or submucosa of the nasopharynx, oropharynx, hypopharynx or supraglottis. Decreased density in size of the known left upper lobe nodule. No new or enlarging nodules are seen. No evidence of intrathoracic lymphadenopathy. Subtle centrilobular opacities in the bilateral upper lobes, suggestive of a respiratory bronchiolitis. 2. PET/CT from 12/20/18 A hypermetabolic right level IIA lymph node, suspicious for malignancy. Thereis nonspecific asymmetric right tonsillar FDG activity, suggest direct visualization. Known 1 cm part-solid left upper lobe nodule demonstrate minimal FDG uptake, cannot exclude low-grade malignancy.No FDG avid hilar or mediastinal lymphadenopathy. Minimal focal FDG uptake in a normal sized prevascular lymph node, could be secondary to inflammation. 1. CT of the chest performed on 11/12/17 shows enlarging right jugulodigastric lymph node 2.7 x 1.7 x 1.8 cm. Moderate mucosal thickening of the right maxillary sinus with right maxillary sinusitis. Also noted irregular suspicious left upper lobe pulmonary nodule 6 mm. PATHOL OGIC PROFILE/MOLECULAR DATA: Reviewed on October 16, 2019 2. 01/30/19 Base of tongue did note a squamous cell carcinoma 1.8 mm, which was HPV positive. 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 The involved node had 4.5 cm of invasive disease. 1. 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 ECOG PERFORMANCE STATUS: 0 REVIEW OF SYSTEMS Per HPI and otherwise negative by full review of organ systems. MEDICATIONS: divalproex ER (DEPAKOTE ER) 250 mg 24 hr tablet Take 250 mg by mouth once daily. atorvastatin (LIPITOR) 10 mg tablet Take 10 mg by mouth once daily. ALPRAZolam (XANAX) 0.25 mg tablet Take 0.25 mg by mouth once daily as needed. Multivitamin capsule Take 1 capsule by mouth once daily. iv contrast (will be provided with radiology test) CT Chest W -Inject, intravenously, once for 1 dose.No IV access, insert saline lock prior to the beginning of sedation, infusion, injection of imaging exam. Discontinue saline lock post exam. If Pt. has a central line or IVAD, may access for administration according to line specific nursing protocol. Once exam is complete flush line and de-accessaccording to line specific nursing protocol in the CT contrast administration guidelines link. buPROPion SR (WELLBUTRIN SR) 150 mg 12 hr tablet Take 1 tablet by mouth twice daily. gabapentin (NEURONTIN) 300 mg capsule Take 1 capsule by mouth three times daily for 30 days. citalopram (CELEXA) 40 mg tablet Take 40 mg by mouth once daily. doxycycline monohydrate (MONODOX) 100 mg capsule TAKE 1 CAPSULE BY MOUTH EVERY 12 HOURS FOR 10 DAYS ALLERGIES: ALLERGIES Allergen Reactions Keflex [Cephalexin] Hives PHYSICAL EXAMINATION: Vitals: BP 152/77 Pulse 70 Temp (Src) 97.5 (Temporal) Resp 16 Ht 5' 7.717 (1.72m) Wt 179lb 3.2 oz (81.3kg) SpO2 99% BMI 27.48 kg/(m^2). Body surface area is 1.97 meters squared. Exam limited to gross visualization where appropriate due to COVID-19. Gen.: This is an age-appropriate patient in no acute distress. Head: Appears atraumatic with no visible lesions. Eyes: Pupils equally round and reactive to light, extraocular muscles are intact. Neck: Supple. Mouth: Mucous membranes appeared to be moist. Respiratory: Appears to be respiring comfortably. Neurologic: Nonfocal to gross visualization. Alert and oriented 3. Psychiatric: No evidence of inappropriate anxiety or depression. Skin: Visible areas of skin without rash, lesions, wounds or petechiae. LABORATORY VALUES: WBC (k/uL) Date Value 10/06/2021 7.38 RBC (m/uL) Date Value 10/06/2021 4.46 Hemoglobin (g/dL) Date Value 10/06/2021 14.6 Hematocrit (%) Date Value 10/06/2021 43.7 MCV (fL) Date Value 10/06/2021 98.0 MCH (pg) Date Value 10/06/2021 32.7 MCHC (g/dL) Date Value 10/06/2021 33.4 RDW-CV (%) Date Value 10/06/2021 12.8 Platelet Count (k/uL) Date Value 10/06/2021 246 MPV (fL) Date Value 10/06/2021 10.8 Glucose (mg/dL) Date Value 10/06/2021 107 (H) BUN (mg/dL) Date Value 10/06/2021 10 Creatinine (mg/dL) Date Value 10/06/2021 1.01 Sodium (mmol/L) Date Value 10/06/2021 145 (H) Potassium (mmol/L) Date Value 10/06/2021 4.2 Chloride (mmol/L) Date Value 10/06/2021 106 (H) CO2 (mmol/L) Date Value 10/06/2021 29 Protein, Total (g/dL) Date Value 10/06/2021 6.5 Albumin (g/dL) Date Value 10/06/2021 4.5 Calcium, Total (mg/dL) Date Value 10/06/2021 9.5 Alkaline Phosphatase (U/L) Date Value 10/06/2021 82 Bilirubin, Total (mg/dL) Date Value 10/06/2021 0.6 AST (U/L) Date Value 10/06/2021 21 ALT (U/L) Date Value 10/06/2021 25 DIAGNOSIS: (C71.9) Glioma of brain (HCC) (primary encounter diagnosis) Plan: CONSULT TO NEUROSURGERY (R91.8) Lung nodules (C76.0) 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 Dr. Nichole ENT Dr. Ibarra [place] surgery on license of [facility]. documented in this encounterThe [facility]04-21-2022 Miscellaneous Notes* Telephone Encounter - Memo Cole MD - 10/06/2021 4:05 PM EDT Thank you will do - if he has persisiting symptoms, I will send him over. Can we get images imported please? * Telephone Encounter - Asya Kumar RN - 10/06/2021 2:43 PM EDT Received call from Winsome at Dr Krause office stating pt had brain MRI done and they faxed over results. Dr Krause would like Dr Mcgregor to review results and discuss things with pt at his appt next week. MRI shows mass and Dr Krause thinks pt may need referral to [facility] but wanted to let Dr Mcgregor review and decide next steps. Asya Kumar RN documented in this encounterThe [facility] System04-04-2022 Evaluation note* Encounter Date Diagnosis Assessment Notes Treatment Notes Treatment Clinical Notes Sep, Anxiety and depression (ICD-10 - F41.8) The patient has stopped taking all medications as he feels he is doing better without. He does feel that taking a week off work improved the anxiety and has only needed to take three xanax. Therefore I will provide another work note for patient to be off another week. The patient has looked into seeing Dr. Sanchez as his is good friends with. I suggested patient try to see the psychiatrist and if he does need a referral to contact out office. Sep, Screening for prostate cancer (ICD-10 - Z12.5) Review of PSA level which was WNL, therefore, we will continue to monitor. Pt denies any urinary issues at this time. Sep, Hyperlipidemia (ICD-10 - E78.5) Cholesterol levels have improved from last check. Patient is to continue with monitoring diet and exercise. [facility] 03-28-2022 Evaluation note* Encounter Date Diagnosis Assessment Notes Treatment Notes Treatment Clinical Notes Aug, Anxiety and depression (ICD-10 - F41.8) [facility] 01-13-2022 Evaluation note* Encounter Date Diagnosis Assessment Notes Treatment Notes Treatment Clinical Notes Jun, Sinusitis (ICD-10 - J32.9) I did prescribe the above medications and work note provided. [facility] 01-12-2022 Evaluation note* Encounter Date Diagnosis Assessment Notes Treatment Notes Treatment Clinical Notes Jun, Sinus pressure (ICD-10 - J34.89) Patient advised of negative results. Encouraged him to call if symtpoms persist or worsen, he verbalized understanding. [facility] 11-02-2021 Evaluation note* Encounter Date Diagnosis Assessment Notes Treatment Notes Treatment Clinical Notes Apr, Sinus congestion (ICD-10 - R09.81) [facility] 10-28-2021 Evaluation note* Encounter Date Diagnosis Assessment Notes Treatment Notes Treatment Clinical Notes Mar, Anxiety and depression (ICD-10 - F41.8) Patient reports feeling relief for half the day with the above dosage. Therefore I suggested increasing to the 40mg. Patient is agreeable to try. Prescription provided. We will continue to monitor. Mar, Nicotine dependence with current use (ICD-10 - F17.200) At least 3 minutes was spent counseling patient regarding the importance of smoking cessation in regards to the patients overall health. Discussed risks of smoking and health benefits of quitting. Provided patient with all possible options for tobacco cessation. Encouraged patient to continue with their efforts. [facility] Other 12-01-2016 History general Narrative - Reported* Type Description Date Medical History anxiety and depression Medical History 05/2016 EGD and colonoscopy Medical History Labs 10/26/16 Medical History PSA (0.510) 10/26/16 Medical History No Stress Test as of 11/09/16 Medical History 11/12/18 PSA (0.6) Medical History 09/2020 Stress test ,echocardiog hannah, 24 hr. holter Medical History 09/13/20 PSA ( 0.4) Medical History 08/2020 Covid + Surgical History skin cancer on nose Surgical History EGD and Colonoscopy 05/2016 Surgical History tonsillectomy Surgical History Head and neck HPV surgery 02/04 19 Hospitalization History see above [facility] 12-01-2016 History general Narrative - Reported* Type Description Date Medical History anxiety and depression Medical History 05/2016 EGD and colonoscopy Medical History Labs 10/26/16 Medical History PSA (0.510) 10/26/16 Medical History No Stress Test as of 11/09/16 Medical History 11/12/18 PSA (0.6) Medical History 09/2020 Stress test ,echocardiog hannah, 24 hr. holter Medical History 09/13/20 PSA ( 0.4) Medical History 08/2020 Covid + Surgical History skin cancer on nose Surgical History EGD and Colonoscopy 05/2016 Surgical History tonsillectomy Surgical History Head and neck HPV surgery 02/04 19 Surgical History Spinal tap at [facility] 11/07/2021 Hospitalization History see above [facility] 12-01-2016 History general Narrative - Reported* Type Description Date Medical History anxiety and depression Medical History 05/2016 EGD and colonoscopy Medical History Labs 10/26/16 Medical History PSA (0.510) 10/26/16 Medical History No Stress Test as of 11/09/16 Medical History 11/12/18 PSA (0.6) Medical History 09/2020 Stress test ,echocardiog hannah, 24 hr. holter Medical History 09/13/20 PSA ( 0.4) Medical History 08/2020 Covid + Medical History 05/26/2022 Brain MRI Surgical History skin cancer on nose Surgical History EGD and Colonoscopy 05/2016 Surgical History tonsillectomy Surgical History Head and neck HPV surgery 02/04 19 Surgical History Spinal tap at [facility] 11/07/2021 Hospitalization History see above [facility] 12-01-2016 History general Narrative - Reported* Type Description Date Medical History anxiety and depression Medical History 05/2016 EGD and colonoscopy Medical History Labs 10/26/16 Medical History PSA (0.510) 10/26/16 Medical History No Stress Test as of 11/09/16 Medical History 11/12/18 PSA (0.6) Medical History 09/2020 Stress test ,echocardiog hannah, 24 hr. holter Medical History 09/13/20 PSA ( 0.4) Medical History 08/2020 Covid + Medical History 05/26/2022 Brain MRI Surgical History skin cancer on nose (squamous c ell) Surgical History EGD and Colonoscopy 05/2016 Surgical History tonsillectomy Surgical History Head and neck surger y for oral cancer/lymph node dissection 01/2019 Surgical History Spinal tap at [facility] 11/07/2021 Hospitalization History see above Vast Other 12-01-2016 History general Narrative - Reported* Type Description Date Medical History anxiety and depression Medical History 05/2016 EGD and colonoscopy Medical History Labs 10/26/16 Medical History PSA (0.510) 10/26/16 Medical History No Stress Test as of 11/09/16 Medical History 11/12/18 PSA (0.6) Medical History 09/2020 Stress test ,echocardiog hannah, 24 hr. holter Medical History 09/13/20 PSA ( 0.4) Medical History 08/2020 Covid + Medical History 05/26/2022 Brain MRI Surgical History skin cancer on nose (squamous c ell) Surgical History EGD and Colonoscopy 05/2016 Surgical History tonsillectomy Surgical History Head and neck surger y for oral cancer/lymph node dissection 01/2019 Surgical History Spinal tap at [facility] 11/07/2021 Surgical History LP at [facility] 08/2022 Hospitalization History see above Vast Other 12-01-2016 History general Narrative - Reported* Type Description Date Medical History anxiety and depression Medical History 05/2016 EGD and colonoscopy Medical History Labs 10/26/16 Medical History PSA (0.510) 10/26/16 Medical History No Stress Test as of 11/09/16 Medical History 11/12/18 PSA (0.6) Medical History 09/2020 Stress test ,echocardiog hannah, 24 hr. holter Medical History 09/13/20 PSA ( 0.4) Medical History 08/2020 Covid + Medical History 05/26/2022 Brain MRI Medical History 03/2023 PAD Surgical History skin cancer on nose (squamous c ell) Surgical History EGD and Colonoscopy 05/2016 Surgical History tonsillectomy Surgical History Head and neck surger y for oral cancer/lymph node dissection 01/2019 Surgical History Spinal tap at [facility] 11/07/2021 Surgical History LP at [facility] 08/2022 Hospitalization History see above Vast Other 12-01-2016 History general Narrative - Reported* Type Description Date Medical History anxiety and depression Medical History 05/2016 EGD and colonoscopy Medical History Labs 10/26/16 Medical History PSA (0.510) 10/26/16 Medical History No Stress Test as of 11/09/16 Medical History 11/12/18 PSA (0.6) Medical History 09/2020 Stress test ,echocardiog hannah, 24 hr. holter Medical History 09/13/20 PSA ( 0.4) Medical History 08/2020 Covid + Medical History 05/26/2022 Brain MRI Medical History 03/2023 PAD Surgical History skin cancer on nose (squamous c ell) Surgical History EGD and Colonoscopy 05/2016 Surgical History tonsillectomy Surgical History Head and neck surger y for oral cancer/lymph node dissection 01/2019 Surgical History Spinal tap at [facility] 11/07/2021 Surgical History LP at [facility] 08/2022 Surgical History angioplasty right iliac artery 04/2023 Hospitalization History see above Vast Other 05-19-2009 History of Present illness Narrative* The patient has a long and complex history. He has a history of melanoma of his nose which was exciseed 12 to 13 years ago and felt to be cured. 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 Connor Fields the time he had multiple lymph node dissections of up to [address] James henry. Again he was felt to be cured with no radiation chemotherapy administered. * Back 2 months ago he started to having brain fog and bilateral tinnitus. He went to the ER was told he had a sinus infection. He was started on antibiotics and steroids with some improvement of thesymptoms. Once the antibiotic stopped he never got fever or neck stiffness but when the steroid stopped he went back to his baseline which was worse. * MRI showed abnormal signal in the naldo and he sent to me in consultation. * He has mild headaches but denies weakness numbness or seizure. He saw Dr. Ba a neurologist in [facility]. * He describes his vision as seeing 1-1/2 . He describes this does not seem quite to but finding a time lab between moving his eyes and having the visual change. 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) Malignant neoplasm of head, face, and neck [facility]* Diagnosis 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 Malignant neoplasm of head, face, and neck Lung nodules Other nonspecific abnormal finding of lung field Malignant neoplasm of head, face and neck (HCC) Malignant neoplasm of head, face, and neck [facility] noteNo InformationNort [facility] Other Evaluation noteNo assessment information available [facility] Work Phone: Evaluation note* Diagnosis Onset Date Resolution Status Migraine acute [facility] Work Phone: Evaluation note* Diagnosis NPH (normal pressure hydrocephalus) (HCC)- Primary Idiopathic normal pressure hydrocephalus (INPH) [facility]* Diagnosis 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HCC)- Primary NPH (normal pressure hydrocephalus) (HCC) Idiopathic normal pressure hydrocephalus (INPH) documented in this encounter [facility] note* Diagnosis 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HCC) NPH (normal pressure hydrocephalus) (HCC) Idiopathic normal pressure hydrocephalus (INPH) [facility] Diagnosis Onset Date Resolution Status Anxiety and depression acute Essential hypertension acute Hyperlipidemia acute Osteoarthritis cervical spine acute PAD (peripheral artery disease) acute [facility] Work Phone: Hospital Discharge instructions Additional Instructions Obtain Elsy pot and perform [facility] Work Phone: Summary Purpose Family History No Family History Records FoundUnknown Family Member Name Dates Details Family history of malignant neoplasm of urinary bladder: Father(V16.52, Z80.52) Status:Active Unknown Family Member Name Dates Details Family history of malignant neoplasm of urinary bladder: Father(V16.52, Z80.52) Status:Active Unknown Family Member Name Dates Details Family history of malignant neoplasm of urinary bladder: Father(V16.52, Z80.52) Status:Active Relationship Condition Age at Onset Recorded Date/T yolie father Malignant neoplasm Unknown Unknown grandparent Unknown Not Specified Heart disease Unknown Advance Directives No Advanced Directives Records Found Advance Directive Response Recorded Date/ Time Advance Directives No December 10 8:00pm Advance Directive Response Recorded Date/ Time Advance Directives No December 10 7:00pm Advance Directive Response Recorded Date/ Time Advance Directives No July 07, 2023 8:27am Chief Complaint and Reason for Visit Chief Complaint Z20.822,R05,Z00.00 z00.00 Chief Complaint Z20.822,R05,Z00.00 z00.00 I44.0 Chief Complaint Neck pain Neck pain Chief Complaint Neck pain Neck pain L rib pain NKI Chief Complaint Neck pain Neck pain L rib pain NKI vertigo, neck Chief Complaint vertigo, neck G91.2 G91.1 M54.81 hydrocephalus Reason for Visit Migraine Chief Complaint E78.5 Z12.5 M54.17 Chief Complaint body aches, left ear clogged Chief Complaint body aches, left ear clogged Neck pain Chief Complaint body aches, left ear clogged Neck pain R61 E78.5 Chief Complaint body aches, left ear clogged Neck pain R61 E78.5 I73.9 Chief Complaint body aches, left ear clogged Neck pain R61 E78.5 I73.9 h53.9 i65.23 i65.1 i66.09 i65.29 Chief Complaint body aches, left ear clogged Neck pain R61 E78.5 I73.9 h53.9 i65.23 i65.1 i66.09 i65.29 PVD Chief Complaint Neck pain R61 E78.5 I73.9 h53.9 i65.23 i65.1 i66.09 i65.29 PVD I72.11 Chief Complaint h53.9 i65.23 i65.1 i 66.09 i65.29 PVD 1 Month Follow Up 3 Week Follow Up; Angiogram I72.11 1 Month Follow Up 1 Month Follow Up 1 MONTH F/U Reason for Visit Anxiety and depressi on Essential hypertension Hyperlipidemia Osteoarthritis cervical spine PAD (peripheral artery disease) Assessments No Assessments Information Available Reason for Referral Specialty Diagnoses / Procedures Referred By Roverto moraes Referred To Contact Neurosurgery Diagnoses Glioma of brain (HCC) Procedures CONSULT TO NEUROSURGERY OFFICE/OUTPATIENT [facility] HIGH MDM 60-74 MINUTES Memo Cole MD [address] [place] [address] [place] [address] Referral ID Status Reason Start Date Expiration Date Visits Requested Visits Authorized [id number] Authorized PCP Requested Referral 10/13/2021 10/13/2022 1 1 Specialty Diagnoses / Procedures Referred By Roverto moraes Referred To Contact CT IMAGING Diagnoses Lung nodules Procedures CT CHEST W IVCON DIAGNOSTIC COMPUTED TOMOGRAPHY THORAX W/CONTRAST Memo Cole MD [address] [place] [address] [place] [address] Ct Imaging Referral ID Status Reason Start Date Expiration Date Visits Requested Visits Authorized [id number] Pending Review Auto-Generat ed Referral 10/30/2022 11/29/2022 1 1 Specialty Diagnoses / Procedures Referred By Contac t Referred To Contact CT IMAGING Diagnoses Malignant neoplasm of head, face and neck (HCC) Procedures CT NECK SOFT TISSUE W IVCON CT SOFT TISSUE NECK W/CONTRAST MATERIAL Memo Cole MD [address] [place] [address] [place] [address] Ct Imaging Referral ID Status Reason Start Date Expiration Date Visits Requested Visits Authorized [id number] Pending Review Auto-Generat ed Referral 10/30/2022 11/29/2022 1 1 Reason *FU 10/31 Evaluate and Treat Brainstem Lesion 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) Referral Organization [facility] urosurgery Referring Provider First Name Sheng Referring Provider Last Name Wyatt Referring Provider Specialty Neurosurger y Referred Organization [facility] Referred Provider Jonny Vigil [place] Address [address] [address] [place],[address] Referred Provider Specialty Neurological Surgery Referral Priority Routine General Notes Fore, Linnea M 022 02:09:54 PM >Received and fax referral today Reason consult and treat (p t is willing to see him in [place], if not then will see at [facility]) 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 Family Medicin e Letcher Referring Provider First Name Griselda Referring Provider Last Name Nelida Referring Provider Specialty Family Prac henny Referred Organization [facility] Referred Provider Elvi Cadena Referred Address [address] [place] [address] [place],[address] Referral Priority Routine Specialty Diagnoses / Procedures Referred By Contac t Referred To Contact MR IMAGING Diagnoses 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HCC) Procedures MRI BRAIN WO/W IVCON MRI BRAIN BRAIN STEM W/O W/CONTRAST MATERIAL Kelton Perez PA-C [address] [place] [address] Mr Imaging Referral ID Status Reason Start Date Expiration Date Visits Requested Visits Authorized [id number] Authorized Auto-Generat ed Referral 09/20/2022 10/20/2023 1 1 Referral ID Status Reason Start Date Expiration Date V isits Requested Visits Authorized [id number] Closed Auto-Generate d Referral 09/20/2022 10/20/2023 1 1 Reason pt requesting n ot Dr. Verma, but can see other providers from that group evaluate and treat tinnitus and balance issues Diagnosis 1 Tinnitus of both ear s (H93.13) Diagnosis 2 Balance disorder (R2 6.89) Referral Organization [facility] Cardiology Referring Provider First Name Lilliam Referring Provider Last Name Kamla Referring Provider Specialty Cardiovascu lar Disease Referred Organization [facility] Referred Provider Manuela Ballesteros Referred Address ,[place], [place],[address] Referred Provider Specialty Ear, Nose an d Throat Referral Priority Routine General Notes Yessica Brown 12:40:36 PM >received today, pt has medicaid insurance, will send to Dr. Ballesteros, attachments made, waiting for notes to be locked Reason consult and treat Diagnosis 1 PAD (peripheral arnie ry disease) (I73.9) Referral Organization [facility] Family Medicin e Letcher Referring Provider First Name Griselda Referring Provider Last Name Nelida Referring Provider Specialty Family Prac henny Referred Organization [facility] Vascular Surge ry Referred Provider Filipe Hess Referred Address [address] [place] [address],[facility] [address],[place], [place],[address] Referred Provider Specialty Vascular Abdirahman yvon Referral Priority Routine General Notes Linnea Alvarado 023 11:58:24 AM >Received today and sent P2P Chief Complaint Patient referred by Dr. Narayan regarding brainstem MRI changes. Additional Source Comments (unrecognized sect ion and content) No Status Records FoundNo Status Records FoundNo Status Records FoundNo Status Records FoundNo Status Records FoundNo Status Records FoundNo Status Records FoundNo Status Records FoundNo Status Records FoundNo Status Records FoundNo Status Records Found INFORMATION SOURCE (unrecogn ized section and content) DATE CREATED AUTHOR 08/01/2019 [facility] DATE CREATED AUTHOR AUTHOR'S ORGANIZ ATION 11/05/2021 [employer] DATE CREATED AUTHOR AUTHOR'S ORGANIZ ATION 01/19/2022 [facility] dical Specialist DATE CREATED AUTHOR AUTHOR'S ORGANIZ ATION 10/02/2022 [facility] DATE CREATED AUTHOR AUTHOR'S ORGANIZ ATION 10/31/2022 [facility] DATE CREATED AUTHOR AUTHOR'S ORGANIZ ATION 12/25/2022 [facility] DATE CREATED AUTHOR AUTHOR'S ORGANIZ ATION 02/15/2023 [facility] DATE CREATED AUTHOR AUTHOR'S ORGANIZ ATION 05/18/2023 [facility] DATE CREATED AUTHOR AUTHOR'S ORGANIZ ATION 07/27/2023 [facility] DATE CREATED AUTHOR AUTHOR'S ORGANIZ ATION 07/27/2023 [facility] dical Specialists [facility] DATE CREATED AUTHOR AUTHOR'S ORGANIZ ATION 08/03/2023 [facility] Source Comments (unrecognize d section and content) In the event this informatio n is protected by the Federal Confidentiality of Alcohol and Drug Abuse Patient Records regulations: The Federal rules restrict any use of the information to criminally investigate or prosecute any alcohol or drug abuse patient.[facility] the event this information is protected by the Federal Confidentiality of Alcohol and Drug Abuse Patient Records regulations: The Federal rules restrict any use of the information to criminally investigate or prosecute any alcohol or drug abuse patient.[facility] the event this information is protected by the Federal Confidentiality of Alcohol and Drug Abuse Patient Records regulations: The Federal rules restrict any use of the information to criminally investigate or prosecute any alcohol or drug abuse patient.[facility] the event this information is protected by the Federal Confidentiality of Alcohol and Drug Abuse Patient Records regulations: The Federal rules restrict any use of the information to criminally investigate or prosecute any alcohol or drug abuse patient.[facility] the event this information is protected by the Federal Confidentiality of Alcohol and Drug Abuse Patient Records regulations: The Federal rules restrict any use of the information to criminally investigate or prosecute any alcohol or drug abuse patient.[facility] the event this information is protected by the Federal Confidentiality of Alcohol and Drug Abuse Patient Records regulations: The Federal rules restrict any use of the information to criminally investigate or prosecute any alcohol or drug abuse patient.[facility] the event this information is protected by the Federal Confidentiality of Alcohol and Drug Abuse Patient Records regulations: The Federal rules restrict any use of the information to criminally investigate or prosecute any alcohol or drug abuse patient.[facility] the event this information is protected by the Federal Confidentiality of Alcohol and Drug Abuse Patient Records regulations: The Federal rules restrict any use of the information to criminally investigate or prosecute any alcohol or drug abuse patient.[facility] the event this information is protected by the Federal Confidentiality of Alcohol and Drug Abuse Patient Records regulations: The Federal rules restrict any use of the information to criminally investigate or prosecute any alcohol or drug abuse patient.[facility] Reason for Visit (unrecogniz ed section and content) Reason Comments Results Reason Comments Head and Neck Cancer Specialty Diagnoses / Procedures Referred By Contac t Referred To Contact Hematology/Oncology / HEMATOLOGY/ONCOLOGY Diagnoses Follow-up examination 1 year follow up LABS WITH CT Procedures EST PATIENT Memo Cole MD [facility] [place] [address] Memo Cole MD [facility] [place] [address] Referral ID Status Reason Start Date Expiration Date Visits Re quested Visits Authorized [id number] Closed 10/13/2021 06/17/2022 1 1 Reason Comments Referral Information Neurosurgery Reason Comments Established Patient Specialty Diagnoses / Procedures Referred By Contac t Referred To Contact Hematology/Oncology / HEMATOLOGY/ONCOLOGY Diagnoses 2 week phone follow up [phone] Procedures PHYS/QHP TELEPHONE EVALUATION 5-10 MIN PROVIDER SPECIALTY PHONE CALL Memo Cole MD [address] [place] [address] [place] [address] Memo Cole MD [address] [place] [address] [place] [address] Referral ID Status Reason Start Date Expiration Date Visits Re quested Visits Authorized [id number] Closed 10/27/2021 06/17/2022 1 1 Reason Comments Triage Internal Referral--o ld Reason Comments Appointment Reason Comments New Patient Specialty Diagnoses / Procedures Referred By Contac t Referred To Contact Neurology / BRAIN TUMOR Diagnoses Hydrocephalus (HCC) Hydrocephalus Procedures OFFICE/OUTPATIENT NEW MODERATE MDM 45-59 MINUTES NEW SURGICAL Elvi Cadena MD [address] [facility] [address] [address] Kelton Perez PA-C [address] [place] [address] Referral ID Status Reason Start Date Expiration Date Visits Re quested Visits Authorized [id number] Closed 09/13/2022 06/17/2023 1 1 Reason Comments Patient Question Reason Comments Radiology MRI Specialty Diagnoses / Procedures Referred By Contac t Referred To Contact MR IMAGING Diagnoses 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HCC) Procedures MRI BRAIN WO/W IVCON MRI BRAIN BRAIN STEM W/O W/CONTRAST MATERIAL Kelton Perez PA-C [address] [place] [address] Mr Imaging Referral ID Status Reason Start Date Expiration Date V isits Requested Visits Authorized [id number] Closed Auto-Generate d Referral 09/20/2022 10/20/2023 1 1 Care Teams (unrecognized sec tion and content) Special Effects Makeup Artist Relationship Specialty Start Date End Date Griselda Krause [address] [place] [phone] PCP - General Family Practice 11/20/18 Griselda Krause [address] [place] [address], [place] [address] Referring Family Practice 11/20/18 Special Effects Makeup Artist Relationship Specialty Start Date End Date Griselda Krause [address] [place] [address], [place] [address] PCP - General Family Practice 11/20/18 Griselda Krause [address] [place] [address], [place] [address] Referring Family Practice 11/20/18 Special Effects Makeup Artist Relationship Specialty Start Date End Date Griselda Krause [address] [place] [address], [phone] PCP - General Family Practice 11/20/18 Griselda Krause [address] [place] [address], [place] [address] Referring Family Practice 11/20/18 Special Effects Makeup Artist Relationship Specialty Start Date End Date Griselda Krause [address] [place] [address], [place] [address] PCP - General Family Practice 11/20/18 Griselda Krause [address] [place] [address], [place] [address] Referring Family Practice 11/20/18 Special Effects Makeup Artist Relationship Specialty Start Date End Date Griselda Krause [address] [place] [address], [place] [address] PCP - General Family Medicine 11/20/18 Griselda Krause [address] [place] [address], [place] [address] Referring Family Medicine 11/20/18 Special Effects Makeup Artist Relationship Specialty Start Date End Date Griselda Krause [address] [place], [place] [phone] PCP - General Family Medicine 11/20/18 Griselda Krause [address] [place], [place] [phone] Referring Family Medicine 11/20/18 Team Status: Inactive Member Role Status Dates Griselda Krause , DO Primary Care Provider Active Daniel Gaytan APRN Emergency Provider Active Team Status: Active Member Role Status Griselda Krause , DO Primary Care Provider Active Elvi Cadena MD Attending Provider Active Team Status: Active Member Role Status Griselda Krause , DO Primary Care Provider Active Team Status: Inactive Member Role Status Griselda Krause , DO Primary Care Provider Active Loi Wong Jr, MD Emergency Provider Active Team Status: Active Member Role Status Griselda Krause , DO Primary Care Provider Active Nikole Thomason APRN CORPORATE HUMAN RESOURCES MANAGER-C Attending Provider A ctive Team Status: Inactive Member Role Status Griselda Krause , DO Primary Care Provider Active Elvi Cadena MD Attending Provider Active Team Status: Inactive Member Role Status Griseldakeith Krause , DO Primary Care Provider Active Nikole Thomason APRN CORPORATE HUMAN RESOURCES MANAGER-C Attending Provider A ctive Special Effects Makeup Artist Relationship Specialty Start Date End Date Griselda Krause [address] [place], [place] [phone] PCP - General Family Medicine 11/20/18 Griselda Krause [address] [place], [place] [phone] Referring Family Medicine 11/20/18 Elvi Cadena MD [address] [facility] [place] [address] Referring Neurology 08/18/22 Special Effects Makeup Artist Relationship Specialty Start Date End Date Griselda Krause [address] [place] [address], [place] [phone] PCP - General Family Medicine 11/20/18 Griselda Krause [address] [place] [address], [place] [address] Referring Family Medicine 11/20/18 Elvi Cadena MD [address] [facility] [address] [place] [address] Referring Neurology 08/18/22 Special Effects Makeup Artist Relationship Specialty Start Date End Date Griselda Krause [address] [place] [address], [place] [address] PCP - General Family Medicine 11/20/18 Griselda Krause [address] [place] [address], [place] [address] Referring Family Medicine 11/20/18 Elvi Cadena MD [address] [facility] [address] [place] [address] Referring Neurology 08/18/22 Team Status: Inactive Member Role Status Dates Griselda Krause DO Primary Care Provider, Attending Provi skye Active Team Status: Inactive Member Role Status Dates Griselda Krause , DO Primary Care Provider Active Lima Joseph MD Attending Provider Active Team Status: Inactive Member Role Status Dates Griselda Krause DO Primary Care Provider Active Rohit Agrawal , Emergency Provider Active Team Status: Inactive Member Role Status Dates Griselda Krause DO Primary Care Provider Active Lilliam Cason MD Attending Provider Active Team Status: Inactive Member Role Status Dates Griselda Krause DO Primary Care Provider Active Ruddy Harvey MD Attending Provider Active Special Effects Makeup Artist Relationship Specialty Start Date End Date Griselda Krause DO [address] [facility] [place] [address] PCP - General Family Medicine 02/13/23 Special Effects Makeup Artist Relationship Specialty Start Date End Date Griselda Krause DO [address] [place] [address] PCP - General Family Medicine 02/13/23 Team Status: Inactive Member Role Status Poornima Krause DO Primary Care Provider Active Sta rt: May 04, 2023 End: May 04, 2023 Nikole Thomason APRN [employer]PORATE [employer]AN RESOURCES MANAGER-C Attending Provider Active Start: April End: May 04, 2023 Team Status: Inactive Member Role Status Poornima Krause DO Primary Care Provider Active Sta rt: May 07, 2023 End: May 07, 2023 Ruddy Harvey MD Attending Provider Active Start: May 07, 2023 End: May 07, 2023 Team Status: Inactive Member Role Status Poornima Cason MD Attending Provider Active Sta rt: May 15, 2023 End: May 15, 2023 Team Status: Inactive Member Role Status Poornima Harvey MD Attending Provider Active Start: May 30, 2023 End: May 30, 2023 Team Status: Inactive Member Role Status Poornima Krause DO Primary Care Provider Active Sta rt: May 30, 2023 End: May 30, 2023 Ruddy Harvey MD Attending Provider Active Start: May 30, 2023 End: May 30, 2023 Team Status: Inactive Member Role Status Poornima Krause DO Attending Provider Active Start: May 31, 2023 End: May 31, 2023 Team Status: Inactive Member Role Status Poornima Krause DO Attending Provider Active Start: July 02, 2023 End: July 02, 2023 Team Status: Inactive Member Role Status Poornima Krause DO Primary Care Provide r, Attending Provider Active Start: August 02, 2023 End: August 02, 2023 Goals (unrecognized section and content) Goals from 12/28/2022 8:23 AM:Goal for Mobility : Maintain active lifestyle as tolerated Goals may be documented in an alternate section FOR RECORDS PERTAINING TO PATIENTS WHO ARE OR HAVE BEEN ENROLLED IN A CHEMICAL DEPENDENCY/SUBSTANCEABUSE PROGRAM, SOME INFORMATION MAY BE OMITTED. This clinical summary was aggregated from multiple sources. Caution should be exercised in using it in the provision of clinical care. This summary normalizes information from multiple sources, and as a consequence, information in this document may materially change the coding, format and clinical context of patient data. In addition, data may be omitted in some cases. CLINICAL DECISIONS SHOULD BE BASED ON THE PRIMARY CLINICAL RECORDS. [facility] [employer] [facility] provides no warranty or guarantee of the accuracy or completeness of information in this document.
[2023-08-06 07:16] VITALS: BP 149/80; PULSE 69; RESP 14; TEMP 36.3; O2SAT 98
[2023-08-06] MEDS: IOHEXOL 240 MG/ML - 10 ML VIAL INJ (07:50)
[2023-08-06] MEDS: LIDOCAINE HCL 2% PF 100 MG/5 ML VIAL INJ (07:50)
[2023-08-06] MEDS: 0.9 % SODIUM CHLORIDE 10 ML INJ (07:50)
[2023-08-06] MEDS: BUPIVACAINE HCL 0.25% PF 25 MG/10 ML VIAL INJ (07:50)
[2023-08-06] MEDS: DEXAMETHASONE SOD PHOS 10 MG/ML VIAL INJ (07:50)
--- NOTE | 2023-08-06 07:53 | P.ON_ITS ---
Date of procedure: 08/06/23 Pre-op diagnosis: M54.12, cervical stenosis Post-op diagnosis: same as pre-op Procedure: Procedure: Left C5-6, 6-7 transforaminal epidural steroid injection Medications: Bupivacaine 0.25% 1cc, lidocaine 2% 1cc, dexamethasone 10mg The patient was seen and examined in the preoperative holding area.? Informed consent was obtained and placed on the chart.? Patient was brought to the medical procedure unit and placed in the prone position where a timeout was completed verifying the correct patient, procedure site, position, and planned special equipment using sterile aseptic technique.? Under direct fluoroscopic visualization a 25-gauge Quincke tipped spinal needle was advanced to the designated neural foramen where contrast dye was injected to show adequate spread.? The needle was inserted at level left C5-6. There was no evidence of vascular or adverse uptake.? Epidural spread was appreciated.? The above- mentioned injectate was then placed in a 1.5 mL aliquot preceded by negative aspiration.? The needle was removed. The needle was inserted and the procedure repeated at level left C6-7.? The surgery site was covered.? Patient was taken to the postprocedural recovery area and monitored for an appropriate length of time before found suitable for discharge in the accompaniment of a responsible adult. Anesthesia: Local Surgeon: Sarina Ramsey Pathology: none sent Condition: stable Disposition: no change
[2023-08-06 07:54] VITALS: BP 130/79; PULSE 68; PULSE 70; RESP 18; O2SAT 96
== END 2023-08-06 07:58 | disposition home or self-care (01) ==
LOC: SURGOUT 06:58
PROVIDERS: PCP Family Medicine; Visit Provider Anesthesiology
DX: M54.12 Radiculopathy, cervical region (principal); M48.02 Spinal stenosis, cervical region
CPT/HCPCS: 64479; 64480; J0665; J1100; Q9966

== ENCOUNTER 2023-08-15 13:12 | Outpatient (OUT) | payer OTHER, SELFPAY ==
--- NOTE | 2023-08-15 13:27 | P.CN_ITS ---
Consult Note: HPI Data of Consult Patient: known to practice within the last 3 years Requesting Physician: Delia Bowser NP Primary Care Provider: GRISELDA KRAUSE Consult Narrative Reason for consult: f/u Narrative: Jovani Kong a pleasant 62 year old male presents for evaluation and management of chronic neck and left shoulder pain. Recently underwent Left C5-6, C6-7 transforaminal epidural steroid injection with 80% relief and functional improvement. Patient continues to have pain in left shoulder, today pain 5/10 increasing to 8/10 with activity and lifting. Patient utilizing tylenol, ibuprofen, zanaflex, baclofen, norco 5-325 PRN. Patient could not tolerate gabapentin 100-200, too drowsy. Patient would like to discuss options for con tinuing left shoulder pain. cc:: CC: Delia Bowser NP Review of Systems ROS Status of ROS 10 or more systems reviewed and unremark able except as noted in history and below Musculoskeletal Reports: joint pain PFSH PFSH Medical History (Updated 08/15/23 @ 13:51 by Delia Bowser NP) Neck pain ?M54.2 - Cervicalgia (ICD-10) Low back pain ?M54.50 - Low back pain, unspecified (ICD-10) Smoker ?F17.200 - Nicotine dependence, unspecified, uncomplicated (ICD-10) Irregular heart beat ?I49.9 - Cardiac arrhythmia, unspecified (ICD-10) Hypertension ?I10 - Essential (primary) hypertension (ICD-10) Surgical History H/O neck dissection ?Z98.890 - Other specified postprocedural states (ICD-10) Meds Home Medications and Allergies Home Medications Medication Instructions Recorded Confirmed Type amlodipine 5 mg tablet (Norvasc) 5 mg PO DAILY 04/16/23 08/06/23 History aspirin 81 mg tablet,delayed 81 mg PO DAILY 04/16/23 08/06/23 History release (Adult Low Dose Aspirin) citalopram 20 mg tablet (Celexa) 20 mg PO DAILY 04/16/23 08/06/23 History hydroxyzine HCl 25 mg tablet 25 mg PO BID PRN sleep 04/16/23 08/06/23 History ibuprofen 600 mg tablet 600 mg PO BID 04/16/23 08/06/23 History mirtazapine 15 mg tablet 15 mg PO DAILY 04/16/23 08/06/23 History montelukast 10 mg tablet 10 mg PO DAILY 04/16/23 08/06/23 History (Singulair) tizanidine 4 mg capsule 4 mg PO DAILY 04/16/23 08/06/23 History hydrocodone 5 mg-acetaminophen 325 1 tab PO DAILY PRN severe pain #30 06/27/23 08/06/23 Rx mg tablet tabs Allergies Allergy/AdvReac Type Severity Reaction Status Date / Time cephalexin [From Keflex] Allergy Unknown Verified 08/06/23 07:19 Exam Constitutional Documenting provider has reviewed patient's vital signs: yes Common normals: no apparent distress, oriented x3, healthy appearing, alert and well nourished General appearance: cooperative HENMT Common normals: normocephalic, hearing grossly normal bilaterally and moist oral mucous membranes Head and scalp: normocephalic Eye Common normals: PERRL Pupil: PERRL Neck & C-Spine Common normals: full ROM General: normal visual inspection Cervical spine: cervical ROM normal Chest Common normals: inspection of chest normal Respiratory Common normals: normal respiratory effort, no retractions and no use of accessory muscles Extremity Left upper extremity: shoulder joint Other: good ROM, empty can test negative, scratch test negative, no pain with cross adduction. significant weakness in LUE. cannot keep arms extended with forced downward pressure Neuro Common normals: oriented x3, CN's II-XII intact bilaterally, moves all extremities, no focal motor deficits, no sensory deficits noted and deep tendon reflexes 2+ bilaterally Sensorium/orientation: alert Motor exam: strength 5/5 throughout and no movement abnormalities noted Psych Common normals: mental status grossly normal, thought process normal, cooperative, affect normal, speech normal and activity/motor behavior normal Speech: normal speech Thought process: normal thought process Results Additional Findings Additional findings: I have checked an [place]AR[place] report on this patient today and there are no aberrancies noted in the prescribing history.?? A drug screen was completed and reviewed within the last year, and if there has not been a drug screen completed we ordered one today to monitor higher risk, state monitored pain medication use. As part of providing excellent, safe, comprehensive care, the following was completed at our patient's visit: 1. A medication reconciliation and review to ensure accurate knowledge of current/active medications, including asking our patients to inform us about any [id number] medications or herbal remedies/nutritional supplements/alternative remedies. 2. A review to specifically ensure our patients have had annual screening for: elevated body mass index (BMI), tobacco use, screening for depression, and screening for unhealthy alcohol use. When screening is concerning, patients are provided with education and the specific recommendation to discuss the concernin g health issue and treatment options with their primary care provider. 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 Patient has completed >6 weeks of guided home exercise program and/or formal physical therapy program without relief of their symptoms.? I have reviewed the imaging of the cervical spine and no red flags were identified.? The Oswestry Disability Index was completed, and the patient scored a 26%.? The patient noted the following:?? moderate to severe pain, pain impacting sleep, pain with ADLs, pain with social life and travel We discussed the risks and benefits of the procedure with the patient, and we are NOT planning on using sedation as outlined in the guidelines from Medicare unless there is a documented reason that sedation would be strongly recommended.?? ?The procedure will be completed with fluoroscopic guidance.? (5) Cervical stenosis of spinal canal: (6) Myofascial pain: Plan left suprascapular and axillary nerve block for chronic left shoulder pain unresponsive to PT/HEP, conservative medications, x1 working towards thermal RFA. Risks vs benefits discussed update xray of left shoulder, likely mild OA. continue norco 5-325 daily prn moderate to severe pain continue zanaflex 4mg HS PRN
== END 2023-08-15 13:13 | disposition home or self-care (01) ==
LOC: PM 13:13
PROVIDERS: PCP Family Medicine; Visit Provider Nurse Practitioner
DX: M25.512 Pain in left shoulder (principal); G62.9 Polyneuropathy, unspecified; M54.12 Radiculopathy, cervical region; M48.02 Spinal stenosis, cervical region; M79.18 Myalgia, other site
CPT/HCPCS: G0463

== ENCOUNTER 2023-08-16 11:56 | Outpatient (OUT) | payer OTHER, SELFPAY ==
--- NOTE | 2023-08-16 12:03 | XR_ITS ---
[address] [address] Patient Name: SHANTEL MELENDEZ MRN: [id number] date: 1960 Sex: M Assigned Patient Location: RAD Current Patient Location: [facility] Accession/Order Number: [id number] Exam Date: 08/16/2023 12:07 Report Date: 08/16/2023 12:48 At the request of: BABATUNDE YOST Procedure: XR shoulder LT min 2V PROCEDURE: XR shoulder LT min 2V COMPARISON: None. HISTORY: Chronic Left Shoulder Pain FINDINGS: BONES:No acute fracture or dislocation. Minimal degenerative changes of the acromioclavicular and glenohumeral joints SOFT TISSUES:Negative. No visible soft tissue swelling. EFFUSION:None visible. OTHER: Negative. XR/XR shoulder LT min 2V IMPRESSION: Mild osteoarthritis Electronically authenticated by: LIMA LEOS Date: 08/16/2023 12:48
== END 2023-08-16 11:57 | disposition home or self-care (01) ==
LOC: RAD 12:00
PROVIDERS: PCP Family Medicine; Visit Provider Nurse Practitioner
DX: M25.512 Pain in left shoulder (principal); M19.012 Primary osteoarthritis, left shoulder
CPT/HCPCS: 73030

== ENCOUNTER 2023-09-03 07:26 | Day surgery (SDC) | payer OTHER, SELFPAY ==
--- OUTSIDE RECORDS SUMMARY | 2023-09-03 07:35 | XMS_ITS | CCD ---
Author Name Unknown Address [address] [place] [address] Organization [facility] Care Team Providers Care President And Ceo Name Role Phone Griselda Krause Primary Care Provider Griselda Krause Attending Provider Griselda Krause Unavailable Unavailable Unavailable Griselda Krause Unavailable Sheng Schneider Unavailable Griselda Krause Primary Care Provider [phone] Griselda Krause Unavailable DO Griselda Krause Primary Care Provider MD Elvi Cadena Attending Provider BAILEY Gaytan Emergency Provider [phone] MD Loi Wong Jr Emergency Provider Unavailable Unavailable DO Griselda Krause Primary Care Provider MD Elvi Cadena Attending Provider BAILEY Gaytan Emergency Provider MD Loi Wong Jr Emergency Provider BAILEY Thomason Attending Provider BAILEY Thomason Attending Provider DO Griselda Krause Primary Care Provider MD Elvi Cadena Attending Provider Trish Carney Unavailable Griselda Krause Primary Care Provider [phone] Nelida, Griselda Wright Unavailable Elvi Cadena MD Unavailable DEMOND CAT Attending Unavailable DEMOND CAT Admitting Unavailable KUNS, GRISELDA WRIGHT Primary Care Unavailable Kuns, DO Camara Primary Care Provider Kuns, DO Camara Attending Provider [phone] NELIDA, GRISELDA WRIGHT Primary Care Unavailable MEMO COLE Referring Unavailable ARSENIO JACKSON Attending Unavaila ble GRISELDA KRAUSE Referring Unavailable KUNS, GRISELDA WRIGHT Primary Care Unavailable KELTON PEREZ Referring Unavailable NELIDA, GRISELDA WRIGHT Primary Care Unavailable ELVI CADENA Referring Unavailable KELTON PEREZ Attending Unavailable NELIDA, GRISELDA WRIGHT Primary Care Unavailable MD Lima Joseph Attending Provider KETTY, Dr. BRET Da Silva Attending Unavailable PCP, OTHER Primary Care Unavailable PCP, Other Primary Care Physician Dr. Griselda Krause Primary Care Unavailabl e Nelida, DO Camara Primary Care Provider [phone] BAILEY Gaytan Emergency Provider [phone] [facility], DO Rohit Mullins Emergency Provider [phone] Nelida, DO Camara Attending Provider Lilliam Cason Unavailable Nelida, DO Camara Primary Care Provider BAILEY Gaytan Emergency Provider elli, DO Rohit Mullins Emergency Provider Nelida, DO Camara Attending Provider MD Lilliam Cason Attending Provider Ruddy Harvey Unavailable BAILEY Thomason M Attending Provider MD Ruddy Harvey Attending Provider Kuns, DO Griselda Primary Care Provider Kuns DO, Griselda R Primary Care Provider Lilliam Cason Admitting Unavailable Lilliam Cason Attending Unavailable Kuns, Griselda Primary Care Unavailable Kuns, Griselda Primary Care Unavailable Nikole Thomason Admitting Unavailab le Nikole Thomason Attending Unavailab le Kuns, Griselda Primary Care Unavailable Ruddy Harvey Admitting Unavailabl Ruddy Kitchen Attending Unavailabl Daniel Berkowitz Attending Unavailable Kuns, Griselda Primary Care Unavailable Daniel Gaytan Admitting Unavailable TuRohit saavedra Admitting Unavailable Rohit Agrawal Attending Unavailable Kuns, Griselda Primary Care Unavailable Kuns, Griselda Primary Care Unavailable Ruddy Harvey Admitting Unavailabl Ruddy Kitchen Attending Unavailabl e Kuns, Griselda Attending Unavailable Kuns, Griselda Admitting Unavailable Kuns, Griselda Primary Care Unavailable Lima Joseph Admitting Unavailable Lima Joseph Attending Unavailable Kuns, Griselda Primary Care Unavailable Kuns, Griselda Primary Care Unavailable Kuns, Griselda Attending Unavailable Kuns, Griselda Admitting Unavailable Kuns, DO Griselda Primary Care Provider ADDIS JUAREZ Attending Unavailable ADDIS JUAREZ Referring Unavailable KUNS, GRISELDA R Primary Care Unavailable ADDIS JUAREZ Attending Unavailable ADDIS JUAREZ Referring Unavailable KUNS, GRISELDA R Primary Care Unavailable Roxy NORRIS, Sarina Badillo Attending Unavailable Roxy NORRIS, Boubacarrius Badillo Attending Unavailable Roxy NORRIS, Sarina Badillo Attending Unavailable NIKOLE THOMASON Attending Unavailab le NIKOLE THOMASON Attending Unavailab NIKOLE Owens Referring Unavailab le NIKOLE THOMASON Attending Unavailab le NIKOLE THOMASON Attending Unavailab le NIKOLE THOMASON Attending NIKOLE Sheehan Attending Yomi gruber Unavailable Unavailable Unavailable Allergies Allergy Classification Reported Allergen(s) Allergy Type Date of Onset Reaction(s) Facility Cephalosporins (antibiotic) (1 source) Cephalexin Drug Allergy 04-29-2018 [facility] (20 sources) Cephalexin; Translations: [CEPHALEXIN] Drug Allergy 04-29-2018 [facility] (20 sources) Cephalexin; Translations: [Keflex] Drug Allergy rash [facility] Other (1 source) Cephalexin; Translations: [Keflex] [facility] Highlighted row has been ruled out! (1 source) natural latex rubber; Translations: [LATEX, NATURAL RUBBER] Drug allergy (disorder) [place] NEGATED: Highlighted row has been ruled out! (1 source) No IV Contrast Allergy.; Translations: [IV Dye, Iodine Containing] Drug allergy (disorder) [place] Medications Current Medications Medication Drug Class(es) Dates [...] oral tablet (18 sources) Macrolide Antimicrobial Start: 07-02-19 Zithromax Z-Slim 250 MG as directed Orally [...] tablet Orally Once a day samples provided May, Active Start: 05-31-2023 take 1 tablet by [...] day; Note: Source Status: Taking; Provider: Nelida Caamra ( ) dexamethasone 2 mg oral tablet [...] oral tablet (20 sources) Antihistamine Start: 08-02-19 24 take 1-2 tablets by mouth at bedtime [...] (20 sources) Central alpha-2 Adrenergic Agonist Start: 4 take 1 tablet by mouth once daily at bedtime Tizanidine (Zanaflex) 4 mg tablet Active 4 MG PO Daily at bedtime August 02, 2023 12:00am [employer] tablet as needed Orally at bedtime; Note: Source Status: Taking; Provider: Satish Rogers Start: 01-30-2023 take 1 capsule by mo [facility] twice daily tiZANidine (Zanaflex) 4 MG [...] 12:50pm Start: 04-06-2022 take 1 tablet by [facility] every twenty-four hours as needed tiZANidine [...] by mouth every four hours Hydrocodone-Acetam inophen ([place]) 5-325 mg tablet Discontinued 1 TAB PO [...] AFTERNOON and 2 at bedtime as directed [id number] 200 actuat albuterol 0.09 mg/actuat metered dose inhaler (4 sources) beta2-Adrenergic Agonist Start: 4 End: 4 take 1 puff(s) by inhalation [...] Comment on above: Take 1 tablet by [facility] twice daily. cyclobenzaprine hydrochloride 10 mg oral [...] on above: TAKE 1 CAPSULE BY MO [facility] EVERY 12 HOURS FOR 10 DAYS DULoxetine [...] 12:47pm Start: 02-27-2019 take 1 capsule by mo ut three times daily gabapentin (NEURONTIN) 300 mg capsule Take 1 capsule by mouth three times daily for 30 days. 90 capsule 0 02/27/2019 Active take 1 capsule by mo uth every twenty-four hours Gabapentin 100 MG 1 capsule Orally Once a day Not-Taking/PRN Comment on above: Take 1 capsule by mo uth three times daily for 30 days. indomethacin [...] 02, 2023 12:48pm take 1 capsule by mo ut once daily at mealtime indomethacin SR (Indocin SR) 75 MG ER capsule indomethacin ER 75 mg capsule,extended release take 1 capsule by mouth once daily with food 0 Active take 1 capsule by sd ut every twenty-four hours Indomethacin ER 75 MG [...] on above: Take 1 capsule by mo [facility] once daily. naproxen 500 mg oral [...] 06, 2022 3:26pm take 1 tablet by [facility] every twelve hours Promethazine HCl 25 MG [...] and other heart disease; Translations: [Atherosclerosis of [place] arteries of extremities with intermittent claudication, right [...] Vitor Hickman MD 08/01/23 Final result Normal [facility] MRI CERVICAL SPINE WO CONTRA STon 07-18-2023 [...] Vitor Hickman MD 08/01/23 Final result Normal [facility] COVID + FLU Quick Testingon 07-02-2023 SARS-CoV-2 (COVID-19) RNA JER+probe Ql (Unsp spec) Negative [facility] [employer] Other COVID + FLU Quick Testing Negative [facility] [employer] Other Quick Strepon 07-02-2023 S. pyogenes Org specific cx Ql (Throat) Negative [facility] [employer] Other Quick Strep [facility] [employer] Other RSVon 07-02-2023 RSV Ag IA Ql (Unsp spec) Negative [facility] [employer] Other US UNI ankle/arm indiceson 1 07-31-2022 US UNI ankle/arm indices [facility] [place] [address] [place] [address] Ultrasound Report Signed Patient: Jovani Melendez MR#: [id number] : 1960 Acct:[id number] Age/Sex: 62 / M ADM Date: 05/30/23 Loc: [facility] Room: Type: [facility] Attending Dr: Ruddy Harvey MD Ordering Provider: [...] Ruddy Harvey MD05/30/2023 1:37 PM Dictation Location: [place] [address] Tech: Agueda Romance Transcribed By: MARISA 05/30/231336 Dictated By: Ruddy Harvey MD 05/30/231336 Signed By: 05/30/231336 [facility] Blood Urea Nitrogenon 2022 Urea nitrogen [Mass/Vol] 15 mg/dL Normal 7-25 [facility] Comment on above: Performed By: #### C MARKEL BUN ####[place] [address] [place] [address] [place] Creatinineon 05-07-2023 Creatinine [Mass/Vol] 0.91 mg/dL Normal 0.70-1.30 [facility] Comment on above: Performed By: #### Fatimah JEAN BAPTISTE BUN ####[place] [address] [place] Creatinine Clr Calc Pharmacy 83.52 [facility] Comment on above: Result Comment: PERF ORMED BY: [facility] [address] [place] [id number] PATHOLOGIST AUTOMOBILE UPHOLSTERER CARMEN LYNCH M.D. Performed By: #### C MARKEL BUN ####[place] [address] [place] [id number] [place] GFR/1.73 sq M.predicted MDRD (S/P/Bld) [Vol rate/Area] mL/min/{1.73_m2} [facility] Comment on above: Performed By: #### C MARKEL BUN ####[address] [place] [address] [facility] Creatinine [Mass/volume] in Serum or PlasmaOrdered By: Ruddy Harvey on 05-07-2023 Creatinine [Mass/Vol] 0.91 mg/dL 0.70-1.30 [facility] No Panel InformationOrdered By: Ruddy Harvey on 05-07-2023 Estimated GFR (CKD-EPI) > 60.0 mL/Min [facility] Creatinine Clearance (Chem 83.52 [facility] Urea nitrogen [Mass/volume] in Serum or PlasmaOrdered By: Ruddy Harvey on 05-07-2023 Urea nitrogen [Mass/Vol] 15 mg/dL 01-[address] [facility] [address] angio neckon 05-04-2023 CT angio neck [facility] [place] [address] [place] [address] CT Scan Report Signed Patient: Jovani Melendez MR#: [id number] : 1960 Acct:[id number] Age/Sex: 62 / M ADM Date: 05/04/23 Loc: CT Room: Type: [facility] Attending Dr: Nikole Thomason APRN [employer] HAND-C Copies to: Nikole Thomason APRN, CNP Ordering Provider: Nikole Thomason APRN, CNP Date of Service: 05/04/23 CT/CT angio neck: H53.9, I65.23, I65.1, I66.09, I65.29 ([id number]) CT/CT angio head: H53.9, I65.23, I65.1, I66.09, [...] Alber Goodson M.D.05/04/2023 4:34 PM Dictation Location: [place] [address] Transcribed By: [facility] 05/04/23 1634 Dictated By: Alber Goodson II, MD 05/04/23 1549 Signed By: 05/04/23 1634 Normal [facility] Creatinine (Bld) [Mass/Vol]O rdered By: Nikole Thomason on 05-04-2023 Creatinine [Mass/Vol] 0.9 mg/dL 0.6-1.3 [facility] Comment on above: ER/ESD physician is notified/shown all ISTAT results.Critical values may be confirmed by laboratory testing ifdeemed necessary by ER attending doctor. ISTAT XRay CREon 05-04-2023 Creatinine [Mass/Vol] 0.9 mg/dL Normal 0.6-1.3 [facility] Comment on above: Result Comment: ER/E SD physician is notified/shown all ISTAT results. Critical values may be confirmed by laboratory testing if deemed necessary by ER attending doctor. Performed By: #### I SCRE #### [facility] [address] [place] [address] ISTAT GFR > 60.0 Normal [facility] Comment on above: Result Comment: PERF ORMED BY: [place] [address] PATHOLOGIST AUTOMOBILE UPHOLSTERER CARMEN LYNCH M.D. Performed By: #### I SCRE #### [address] No Panel InformationOrdered By: Nikole Thomason on 05-04-2023 Bedside Estimated GFR (eGFR) > 60.0 [facility] US arterial pvr rest Tom US arterial pvr rest LE [facility] [place] [address] [place] [address] Ultrasound Report Signed Patient: Jovani Melendez MR#: [id number] : 1960 Acct:[id number] Age/Sex: 62 / M ADM Date: 04/25/23 Loc: Room: Type: [facility] Attending Dr: Lilliam Cason MD Ordering Provider: [...] Ruddy Harvey MD04/26/2023 9:47 AM Dictation Location: [place] [address] Tech: Elisabet Mcclellan Transcribed By: MARISA 04/26/23946 Dictated By: Ruddy Harvey MD 04/26/23944 Signed By: 04/26/23946 Normal [facility] Alanine aminotransferase [En zymatic activity/volume] in Serum or PlasmaOrdered By: Griselda Krause on 03-30-2023 ALT [Catalytic activity/Vol] 10 U/L Normal 7-52 [facility] Comment on above: Order Comment: Reaso n for Exam Night sweats;Hyperlipidemia Performed By: #### C MP, TSH3, CBC, LIPID #### [facility] [address] [place] [address] [place] Albumin [Mass/volume] in Ser um or Plasma by Bromocresol green (BCG) dye binding methoOrdered By: Griselda Krause on 03-30-2023 Albumin BCG dye [Mass/Vol] 4.2 g/dL 3.5-5.7 [facility] Alkaline phosphatase [Enzyma tic activity/volume] in Serum or PlasmaOrdered By: Griselda Krause on 03-30-2023 ALP [Catalytic activity/Vol] 61 U/L Normal 34-104 [facility] Comment on above: Order Comment: Reaso n for Exam Night sweats;Hyperlipidemia Performed By: #### C MP, TSH3, CBC, LIPID #### [facility] [address] [place] [id number] [place] Aspartate aminotransferase [ Enzymatic activity/volume] in Serum or PlasmaOrdered By: Griselda Krause on 03-30-2023 AST [Catalytic activity/Vol] 8 U/L Low 13-39 [facility] Comment on above: Order Comment: Reaso n for Exam Night sweats;Hyperlipidemia Performed By: #### C MP, TSH3, CBC, LIPID #### [facility] [address] [place] [id number] [place] Automated basophil %Ordered By: Griselda Krause on 03-30-2023 Basophils/100 WBC (Bld) 0.8 % Normal . [facility] Comment on above: Order Comment: Reaso n for Exam Night sweats;Hyperlipidemia Performed By: #### C MP, TSH3, CBC, LIPID #### [facility] [address] Automated basophil countOrde red By: Griselda Krause on 03-30-2023 Basophils (Bld) [#/Vol] 0.1 10*3/uL Normal 0.0-0.2 [facility] Comment on above: Order Comment: Reaso n for Exam Night sweats;Hyperlipidemia Result Comment: PERF ORMED BY: [place] [address] PATHOLOGIST AUTOMOBILE UPHOLSTERER CARMEN LYNCH M.D. Performed By: #### C MP, TSH3, CBC, LIPID #### [address] Automated blood monocyte cou ntOrdered By: Griselda Krause on 03-30-2023 Monocytes (Bld) [#/Vol] 0.8 10*3/uL Normal 0.0-0.8 [facility] Comment on above: Order Comment: Reaso n for Exam Night sweats;Hyperlipidemia Performed By: #### C MP, TSH3, CBC, LIPID #### [address] Automated eosinophil %Ordere d By: Griselda Krause on 03-30-2023 Eosinophils/100 WBC (Bld) 0.6 % Normal . [facility] Comment on above: Order Comment: Reaso n for Exam Night sweats;Hyperlipidemia Performed By: #### C MP, TSH3, CBC, LIPID #### [address] Automated eosinophil countOr dered By: Griselda Krause on 03-30-2023 Eosinophils (Bld) [#/Vol] 0.1 10*3/uL Normal 0.0-0.45 [facility] Comment on above: Order Comment: Reaso n for Exam Night sweats;Hyperlipidemia Performed By: #### C MP, TSH3, CBC, LIPID #### [address] Automated monocyte %Ordered By: Griselda Krause on 03-30-2023 Monocytes/100 WBC (Bld) 8.0 % Normal . [facility] Comment on above: Order Comment: Reaso n for Exam Night sweats;Hyperlipidemia Performed By: #### C MP, TSH3, CBC, LIPID #### [facility] [address] Automated neutrophil %Ordere d By: Griselda Krause on 03-30-2023 Neutrophils/100 WBC (Bld) 73.8 % Normal . [facility] Comment on above: Order Comment: Reaso n for Exam Night sweats;Hyperlipidemia Performed By: #### C MP, TSH3, CBC, LIPID #### [facility] [address] Bilirubin.total [Mass/volume ] in Serum or PlasmaOrdered By: Griselda Krause on 03-30-2023 Bilirubin [Mass/Vol] 0.9 mg/dL Normal 0.3-1.0 [facility] Comment on above: Order Comment: Reaso n for Exam Night sweats;Hyperlipidemia Performed By: #### C MP, TSH3, CBC, LIPID #### [facility] [address] [place] [address] [place] Calcium [Mass/volume] in Ser um or PlasmaOrdered By: Griselda Krause on 03-30-2023 Calcium [Mass/Vol] 9.1 mg/dL Normal 8.6-10.3 [facility] Comment on above: Order Comment: Reaso n for Exam Night sweats;Hyperlipidemia Performed By: #### C MP, TSH3, CBC, LIPID #### [facility] [address] [place] [address] [place] Carbon dioxide, total [Moles /volume] in Serum or PlasmaOrdered By: Griselda Krause on 03-30-2023 CO2 [Moles/Vol] 27.0 mmol/L Normal 21.0-31.0 [facility] Comment on above: Order Comment: Reaso n for Exam Night sweats;Hyperlipidemia Performed By: #### C MP, TSH3, CBC, LIPID #### [facility] [address] [place] [address] [place] Chloride [Moles/volume] in S r[place] or PlasmaOrdered By: Griselda Krause on 03-30-2023 Chloride [Moles/Vol] 103 mmol/L Normal 98-107 [facility] Comment on above: Order Comment: Reaso n for Exam Night sweats;Hyperlipidemia Performed By: #### C MP, TSH3, CBC, LIPID #### [facility] [address] Cholesterol [Mass/volume] in Serum or PlasmaOrdered By: Griselda Krause on 03-30-2023 Cholesterol [Mass/Vol] 224 mg/dL High 140-200 [facility] Comment on above: Chol less than 200 m g/dl low riskChol 201-239 mg/dl borderline riskChol 240 mg/dl and greater high risk Order Comment: Reaso n for Exam Night sweats;Hyperlipidemia Result Comment: Chol less than 200 mg/dl low risk Chol 201-239 mg/dl borderline risk Chol 240 mg/dl and greater high risk Performed By: #### C MP, TSH3, CBC, LIPID #### [facility] [address] Cholesterol in LDL Calc [Mas s/Vol]Ordered By: Griselda Krause on 03-30-2023 Cholesterol in LDL [Mass/Vol] 148 mg/dL 0-100 [facility] Comment on above: LDL ATP III CLASSIFI CATIONLDL less than 100 mg/dL OptimalLDL 100-129 mg/dL Near or above optimalLDL 130-159 mg/dL Borderline highLDL 160-189 mg/dL HighLDL greater than 189 mg/dL Very high Cholesterol in VLDL Calc [Ma ss/Vol]Ordered By: Griselda Krause on 03-30-2023 Cholesterol in VLDL [Mass/Vol] 31 mg/dL [facility] Complete Blood Count Auto Di ffon 03-30-2023 Mean Corpuscular HGB Conc 34.9 g/dL Normal 32.5-35.6 [facility] Comment on above: Order Comment: Reaso n for Exam Night sweats;Hyperlipidemia Performed By: #### C MP, TSH3, CBC, LIPID #### [facility] [address] NRBC% 0.1 /100{WBC} Normal 0-0.5 [facility] Comment on above: Order Comment: Reaso n for Exam Night sweats;Hyperlipidemia Performed By: #### C MP, TSH3, CBC, LIPID #### [facility] [address] Comprehensive Metabolic Pane chanel 03-30-2023 Albumin [Mass/Vol] 4.2 g/dL Normal 3.5-5.7 [facility] Comment on above: Order Comment: Reaso n for Exam Night sweats;Hyperlipidemia Performed By: #### C MP, TSH3, CBC, LIPID #### [facility] [address] [place] [address] GFR/1.73 sq M.predicted MDRD (S/P/Bld) [Vol rate/Area] mL/min/{1.73_m2} Normal [facility] Comment on above: Order Comment: Reaso n for Exam Night sweats;Hyperlipidemia Performed By: #### C MP, TSH3, CBC, LIPID #### [facility] [address] [place] [address] Creatinine [Mass/volume] in Serum or PlasmaOrdered By: Griselda Krause on 03-30-2023 Creatinine [Mass/Vol] 0.82 mg/dL Normal 0.70-1.30 [facility] Comment on above: Order Comment: Reaso n for Exam Night sweats;Hyperlipidemia Performed By: #### C MP, TSH3, CBC, LIPID #### [facility] [address] [place] [address] Erythrocyte distribution wid th [Ratio] by Automated countOrdered By: Griselda Krause on 03-30-2023 Erythrocyte distribution width (RBC) [Ratio] 14.1 % Normal 12.0-14.8 [facility] Comment on above: Order Comment: Reaso n for Exam Night sweats;Hyperlipidemia Performed By: #### C MP, TSH3, CBC, LIPID #### [facility] [address] [place] [address] Erythrocytes [#/volume] in B lood by Automated countOrdered By: Griselda Krause on 03-30-2023 RBC (Bld) [#/Vol] 4.26 10*6/uL Normal 3.90-5.60 [facility] Comment on above: Order Comment: Reaso n for Exam Night sweats;Hyperlipidemia Performed By: #### C MP, TSH3, CBC, LIPID #### [facility] [address] Glucose [Mass/volume] in Ser um or PlasmaOrdered By: Griselda Krause on 03-30-2023 Glucose [Mass/Vol] 83 mg/dL Normal 70-100 [facility] Comment on above: ADA recommended refe rence rangeRandom Glucose Reference Range is dependent on time and content of last meal. Glucose of more than 200 mg/dL in a nonstressed, ambulatory subject supports the diagnosis of Diabetes Mellitus. Order Comment: Reaso n for Exam Night sweats;Hyperlipidemia Result Comment: [place] om Glucose Reference Range is dependent on time and content of last meal. Glucose of more than 200 mg/dL in a nonstressed, ambulatory subject supports the diagnosis of Diabetes Mellitus. ADA recommended reference range Performed By: #### C MP, TSH3, CBC, LIPID #### [facility] [address] Hematocrit [Volume Fraction] of Blood by Automated countOrdered By: Griselda Krause on 03-30-2023 Hematocrit (Bld) [Volume fraction] 41.4 % Normal 38.8-50.0 [facility] Comment on above: Order Comment: Reaso n for Exam Night sweats;Hyperlipidemia Performed By: #### C MP, TSH3, CBC, LIPID #### [facility] [address] Hemoglobin [Mass/volume] in BloodOrdered By: Griselda Krause on 03-30-2023 Hemoglobin (Bld) [Mass/Vol] 14.4 g/dL Normal 13.0-17.0 [facility] Comment on above: Order Comment: Reaso n for Exam Night sweats;Hyperlipidemia Performed By: #### C MP, TSH3, CBC, LIPID #### [facility] [address] [place] [address] [place] Leukocytes [#/volume] correc mone for nucleated erythrocytes in Blood by Automated counOrdered By: Griselda Krause on 03-30-2023 WBC corrected for nucl RBC Auto (Bld) [#/Vol] 10.0 10*3/uL 4.1-10.5 [facility] Leukocytes [#/volume] in Blo od by Automated countOrdered By: Griselda Krause on 03-30-2023 WBC (Bld) [#/Vol] 10.0 10*3/uL Normal 4.1-10.5 [facility] Comment on above: Order Comment: Reaso n for Exam Night sweats;Hyperlipidemia Performed By: #### C MP, TSH3, CBC, LIPID #### [facility] [address] Lipid Panelon 03-30-2023 LDL Cholesterol,Calculated 148 mg/dL High 0-100 [facility] Comment on above: Order Comment: Reaso n for Exam Night sweats;Hyperlipidemia Result Comment: LDL ATP III CLASSIFICATION LDL less than 100 mg/dL Optimal LDL 100-129 mg/dL Near or above optimal LDL 130-159 mg/dL Borderline high LDL 160-189 mg/dL High LDL greater than 189 mg/dL Very high Performed By: #### C MP, TSH3, CBC, LIPID #### [facility] [address] Triglyceride w/Reflex 159 mg/dL High 0-149 [facility] Comment on above: Order Comment: Reaso n for Exam Night sweats;Hyperlipidemia Result Comment: TRIG ATP III CLASSIFICATION TRIG less than 150 mg/dL Normal TRIG 150-199 mg/dL Borderline high TRIG 200-500 mg/dL High TRIG greater than 500 mg/dL Very high Standard traceable to the Center for Disease Conrtrol and Prevention (CDC) test method. Performed By: #### C MP, TSH3, CBC, LIPID #### [facility] [address] VLDL CHOLESTEROL 31 mg/dL Normal [facility] Comment on above: Order Comment: Reaso n for Exam Night sweats;Hyperlipidemia Performed By: #### C MP, TSH3, CBC, LIPID #### [facility] [address] [place] [address] [place] Lymphocytes [#/volume] in Bl ood by Automated countOrdered By: Griselda Krause on 03-30-2023 Lymphocytes (Bld) [#/Vol] 1.7 10*3/uL Normal 1.00-4.8 [facility] Comment on above: Order Comment: Reaso n for Exam Night sweats;Hyperlipidemia Performed By: #### C MP, TSH3, CBC, LIPID #### [facility] [address] Lymphocytes/100 leukocytes i n Blood by Automated countOrdered By: Griselda Krause on 03-30-2023 Lymphocytes/100 WBC (Bld) 16.8 % Normal . [facility] Comment on above: Order Comment: Reaso n for Exam Night sweats;Hyperlipidemia Performed By: #### C MP, TSH3, CBC, LIPID #### [facility] [address] MCH [Entitic mass] by Automa mone countOrdered By: Griselda Krause on 03-30-2023 MCH (RBC) [Entitic mass] 33.9 pg Normal 27.5-35.2 [facility] Comment on above: Order Comment: Reaso n for Exam Night sweats;Hyperlipidemia Performed By: #### C MP, TSH3, CBC, LIPID #### [facility] [address] [place] [address] MCHC Auto (RBC) [Mass/Vol]Or dered By: Griselda Krause on 03-30-2023 MCHC (RBC) [Mass/Vol] 34.9 g/dL 32.5-35.6 [facility] MCV [Entitic volume] by Auto mated countOrdered By: Griselda Krause on 03-30-2023 MCV (RBC) [Entitic vol] 97.1 fL Normal 83.5-101 [facility] Comment on above: Order Comment: Reaso n for Exam Night sweats;Hyperlipidemia Performed By: #### C MP, TSH3, CBC, LIPID #### [facility] [address] [place] [address] Neutrophils [#/volume] in Bl ood by Automated countOrdered By: Griselda Krause on 03-30-2023 Neutrophils (Bld) [#/Vol] 7.3 10*3/uL Normal 1.8-7.7 [facility] Comment on above: Order Comment: Reaso n for Exam Night sweats;Hyperlipidemia Performed By: #### C MP, TSH3, CBC, LIPID #### [facility] [address] No Panel InformationOrdered By: Griselda Krause on 03-30-2023 Estimated GFR (CKD-EPI) > 60.0 mL/Min [facility] Creatinine Clearance (Chem N/A [facility] Nucleated erythrocytes [Pres ence] in Blood by Automated countOrdered By: Griselda Krause on 03-30-2023 Nucleated RBC Auto Ql (Bld) 0.1 /100{WBC} 0-0.5 [facility] Platelet mean volume [Entiti c volume] in Blood by Automated countOrdered By: Griselda Krause on 03-30-2023 Platelet mean volume (Bld) [Entitic vol] 9.2 fL Normal 6.6-10.1 [facility] Comment on above: Order Comment: Reaso n for Exam Night sweats;Hyperlipidemia Performed By: #### C MP, TSH3, CBC, LIPID #### [facility] [address] [place] [address] Platelets [#/volume] in Bloo d by Automated countOrdered By: Griselda Krause on 03-30-2023 Platelets (Bld) [#/Vol] 221 10*3/uL Normal 150-450 [facility] Comment on above: Order Comment: Reaso n for Exam Night sweats;Hyperlipidemia Performed By: #### C MP, TSH3, CBC, LIPID #### [facility] [address] [place] [address] Potassium [Moles/volume] in Serum or PlasmaOrdered By: Griselda Krause on 03-30-2023 Potassium [Moles/Vol] 4.1 mmol/L Normal 3.5-5.1 [facility] Comment on above: Order Comment: Reaso n for Exam Night sweats;Hyperlipidemia Performed By: #### C MP, TSH3, CBC, LIPID #### [facility] [address] [place] [address] Protein [Mass/volume] in Ser um or PlasmaOrdered By: Griselda Krause on 03-30-2023 Protein [Mass/Vol] 6.1 g/dL Low 6.4-8.9 [facility] Comment on above: Order Comment: Reaso n for Exam Night sweats;Hyperlipidemia Performed By: #### C MP, TSH3, CBC, LIPID #### [facility] [address] [place] [address] Serum globulin measurement b y calculation (mass/volume)Ordered By: Griselda Krause on 03-30-2023 Globulin (S) [Mass/Vol] 1.9 g/dL Normal [facility] Comment on above: Order Comment: Reaso n for Exam Night sweats;Hyperlipidemia Performed By: #### C MP, TSH3, CBC, LIPID #### [facility] [address] [place] [address] Serum or plasma albumin/glob ulin mass ratioOrdered By: Griselda Krause on 03-30-2023 Albumin/Globulin [Mass ratio] 2.2 {ratio} Normal [facility] Comment on above: Order Comment: Reaso n for Exam Night sweats;Hyperlipidemia Performed By: #### C MP, TSH3, CBC, LIPID #### [facility] [address] [place] [address] Serum or plasma anion gap de terminationOrdered By: Griselda Krause on 03-30-2023 Anion gap [Moles/Vol] 12.1 mmol/L Normal 6.0-15.0 [facility] Comment on above: Order Comment: Reaso n for Exam Night sweats;Hyperlipidemia Performed By: #### C MP, TSH3, CBC, LIPID #### [facility] [address] [place] [address] Serum or plasma high density lipoprotein (HDL) cholesterol measurementOrdered By: Griselda Krause on 03-30-2023 Cholesterol in HDL [Mass/Vol] 44 mg/dL Normal 23-92 [facility] Comment on above: HDL CHOL ATP-III CLA SSIFICATION Cardiovascular RiskHDL > or equal to 60 mg/dL LOWHDL < 40 mg/dL HIGH Order Comment: Reaso n for Exam Night sweats;Hyperlipidemia Result Comment: HDL CHOL ATP-III CLASSIFICATION Cardiovascular Risk HDL > or equal to 60 mg/dL LOW HDL < 40 mg/dL HIGH Performed By: #### C MP, TSH3, CBC, LIPID #### [address] Serum or plasma total choles terol/high density lipoprotein (HDL) cholesterol mass ratOrdered By: Griselda Krause on 03-30-2023 Cholesterol.total/Chol esterol in HDL [Mass ratio] 5.1 {ratio} Normal <5.0 [facility] Comment on above: Order Comment: Reaso n for Exam Night sweats;Hyperlipidemia Performed By: #### C MP, TSH3, CBC, LIPID #### [address] Sodium [Moles/volume] in Ser um or PlasmaOrdered By: Griselda Krause on 03-30-2023 Sodium [Moles/Vol] 138 mmol/L Normal 136-145 [facility] Comment on above: Order Comment: Reaso n for Exam Night sweats;Hyperlipidemia Performed By: #### C MP, TSH3, CBC, LIPID #### [facility] [address] [place] [address] Thyrotropin [Units/volume] i n Serum or PlasmaOrdered By: Griselda Krause on 03-30-2023 TSH Qn 0.93 m[IU]/L Normal 0.45-5.33 [facility] Comment on above: Order Comment: Reaso n for Exam Night sweats;Hyperlipidemia Result Comment: PERF ORMED BY: [place] [address] PATHOLOGIST [employer] CARMEN LYNCH M.D. Performed By: #### C MP, TSH3, CBC, LIPID #### [address] Triglyceride [Mass/volume] i n Serum or PlasmaOrdered By: Griselda Krause on 03-30-2023 Triglyceride [Mass/Vol] 159 mg/dL 0-149 [facility] Comment on above: TRIG ATP III CLASSIF ICATIONTRIG less than 150 mg/dL NormalTRIG 150-199 mg/dL Borderline highTRIG 200-500 mg/dL High TRIG greater than 500 mg/dL Very highStandard traceable to the Center for Disease Conrtrol and Prevention (CDC) test method. Urea nitrogen [Mass/volume] in Serum or PlasmaOrdered By: Griselda Krause on 03-30-2023 Urea nitrogen [Mass/Vol] 10 mg/dL Normal 7-25 [facility] Comment on above: Order Comment: Reaso n for Exam Night sweats;Hyperlipidemia Performed By: #### C MP, TSH3, CBC, LIPID #### [facility] [address] COVID-19 Antigenon 3 COVID-19 Antigen Healthcare [...] developed and its performance characteristic determined by [employer] and validated at [facility]. This test has not been FDA [...] for SARS Antigen by JAMILA PERFORMED BY: [address] [id number] PATHOLOGIST [employer] CARMEN LYNCH M.D. Normal [facility] Comment on above: Performed By: #### S OFBASIA, COVID-19 YENNY ####[place] [address] [place] [id number] [facility] COVID-19 SOFIAOrdered By: Brandyn Gaytan on 02-26-2023 SARS-CoV+SARS-CoV-2 (COVID-19) Ag IA.rapid Ql (Resp) Negative Negative [facility] Comment on above: This is a duplicate Yenny SARS Antigen (JAMILA) result to be used for statistical tracking purpose only. No Panel InformationOrdered By: Daniel Gaytan on 02-26-2023 SARS Antigen (LFIA) [facility] SARS Antigen (LFIA) [facility] Yenny Ag Negativeon 02-27-20 23 Yenny Ag Negative Negative Normal Negative [facility] Comment on above: Result Comment: This is a duplicate Yenny SARS Antigen (JAMILA) result to be used for statistical tracking purpose only. PERFORMED BY: [facility] [address] [place] [id number] PATHOLOGIST [employer] CARMEN LYNCH M.D. Performed By: #### S OFRIOSJAILENE COVID-19 YENNY ####[address] No Panel Informationon 12-28 XR Pain Management C ase (Reference Range: not available) *FINAL Date of Service: 12/28/2022 08:49 Adm #: [id number] Reading Dr:RICARDO CAPPS Signoff Dr: RICARDO CAPPS PROCEDURE: PAIN MANAGEMENT CASE - BXR 0999 REASON FOR EXAM: SPONDYLOSIS W/O MYELOPATHY OR RADICULOPATHY, CERVICAL REGION RESULT: Patient Name: JOVANI MELENDEZ STUDY: PAIN MANAGEMENT CASE INDICATION: SPONDYLOSIS W/O MYELOPATHY OR RADICULOPATHY, CERVICAL REGION COMPARISON: None. ACCESSION NUMBER(S): [id number] ORDERING CLINICIAN: LIMA JOSEPH TECHNIQUE: See below: FINDINGS: Fluoroscopy was provided during therapeutic puncture in the region of the cervical spine for pain management. Total fluoroscopy time: 14.56mgy, images: 4. IMPRESSION: Fluoroscopy for pain management. Dictation workstation: [id number] Original Interpreting Physician: RICARDO CAPPS M.D. Original Transcribed by/Date: MMODAL Dec 28 2022 6:14A Original Electronically Signed by/Date: RICARDO CAPPS M.D. Dec 28 2022 9:04A Addendum Interpreting Physician: Addendum Transcribed by/Date: NO ADDENDUM Addendum Electronically Signed by/Date: [facility] [place] Quick Strepon 12-05-2022 S. pyogenes Org specific cx Ql (Throat) Negative [facility] [employer] Other Quick Strep [facility] [employer] Other XR pre/post mri xrayon 11-15 XR pre/post mri xray [facility] [place] [address] [place] [address] MRI Report Signed Patient: Jovani Melendez MR#: [id number] : 1960 Acct:[id number] Age/Sex: 61 / M ADM Date: 11/15/22 Loc: [facility] Room: Type: [facility] Attending Dr: Lima Joseph MD Copies to: Lima Joseph MD Ordering Provider: Lima Joseph MD Date of Service: 11/15/22 MR/MR lumbar spine wo con: M54.17 ([id number]) XR/XR pre/post mri xray: LUMBAR PRES MRI [...] Filipe Perez M.D.11/15/2022 1:41 PM Dictation Location: [place] [address] Transcribed By: [facility] 11/15/22 1341 Dictated By: Filipe Perez DO 11/15/22 1332 Signed By: 11/15/22 1341 [facility] CBC W Auto Differential pane l (Bld)on 10-27-2022 Basophils (Bld) [#/Vol] 0.03 10*3/uL Normal <0.11 [facility] Comment on above: Order Comment: Speci men Type: BLOOD SPECIMEN Ordering Facility: [facility] Address: [address] [place] [address] Performed By: #### 5 7021-8 #### [facility] CLIA [id number] [address] [place] [address] Basophils/100 WBC (Bld) 0.3 % Normal [facility] Comment on above: Order Comment: Speci men Type: BLOOD SPECIMEN Ordering Facility: [facility] Address: [address] [place] [address] Performed By: #### 5 7021-8 #### [facility] CLIA [id number] [address] [place] [address] Differential cell count method Nom (Bld) Auto Normal [facility] Comment on above: Order Comment: Speci men Type: BLOOD SPECIMEN Ordering Facility: [facility] Address: [address] [place] [address] Performed By: #### 5 7021-8 #### [facility] CLIA [id number] [address] [place] [address] Eosinophils (Bld) [#/Vol] 0.06 10*3/uL Normal <0.46 [facility] Comment on above: Order Comment: Speci men Type: BLOOD SPECIMEN Ordering Facility: [facility] Address: [address] [place] [address] Performed By: #### 5 7021-8 #### [facility] CLIA [id number] [address] [place] [address] Eosinophils/100 WBC (Bld) 0.7 % Normal [facility] Comment on above: Order Comment: Speci men Type: BLOOD SPECIMEN Ordering Facility: [facility] Address: [address] [place] [address] Performed By: #### 5 7021-8 #### [facility] CLIA [id number] [address] [place] [address]47 Erythrocyte distribution width (RBC) [Ratio] 14.0 % Normal 11.5-15.0 [facility] Comment on above: Order Comment: Speci men Type: BLOOD SPECIMEN Ordering Facility: [facility] Address: [address] [place] [address] Performed By: #### 5 7021-8 #### [facility] CLIA [id number] [address] [place] [address]258 Hematocrit (Bld) [Volume fraction] 43.5 % Normal 39.0-51.0 [facility] Comment on above: Order Comment: Speci men Type: BLOOD SPECIMEN Ordering Facility: [facility] Address: [address] [place] [address] Performed By: #### 5 7021-8 #### [facility] CLIA [id number] [address] [place] [address] Hemoglobin (Bld) [Mass/Vol] 14.5 g/dL Normal 13.0-17.0 [facility] Comment on above: Order Comment: Speci men Type: BLOOD SPECIMEN Ordering Facility: [facility] Address: [address] [place] [address] Performed By: #### 5 7021-8 #### [facility] CLIA [id number] [address] [place] [address]641 Immature granulocytes (Bld) [#/Vol] 0.03 10*3/uL Normal <0.10 [facility] Comment on above: Order Comment: Speci men Type: BLOOD SPECIMEN Ordering Facility: [facility] Address: [address] [place] [address] Performed By: #### 5 7021-8 #### [facility] CLIA [id number] [address] [place] [address] 08104 Immature granulocytes/100 WBC (Bld) 0.3 % Normal [facility] Comment on above: Order Comment: Speci men Type: BLOOD SPECIMEN Ordering Facility: [facility] Address: [address] [place] [address] Performed By: #### 5 7021-8 #### [facility] CLIA [id number] [address] [place] [address]908 Lymphocytes (Bld) [#/Vol] 2.00 10*3/uL Normal 1.00-4.00 [facility] Comment on above: Order Comment: Speci men Type: BLOOD SPECIMEN Ordering Facility: [facility] Address: [address] [place] [address] Performed By: #### 5 7021-8 #### [facility] CLIA [id number] [address] [place] [address] 71003 Lymphocytes/100 WBC (Bld) 21.9 % Normal [facility] Comment on above: Order Comment: Speci men Type: BLOOD SPECIMEN Ordering Facility: [facility] Address: [address] [place] [address] Performed By: #### 5 7021-8 #### [facility] CLIA [id number] [address] [place] [address] 19317 MCH (RBC) [Entitic mass] 31.3 pg Normal 26.0-34.0 [facility] Comment on above: Order Comment: Speci men Type: BLOOD SPECIMEN Ordering Facility: [facility] Address: [address] [place] [address] Performed By: #### 5 7021-8 #### [facility] CLIA [id number] [address] [place] [address] 28463 MCHC (RBC) [Mass/Vol] 33.3 g/dL Normal 30.5-36.0 [facility] Comment on above: Order Comment: Speci men Type: BLOOD SPECIMEN Ordering Facility: [facility] Address: [address] [place] [address] Performed By: #### 5 7021-8 #### [facility] CLIA [id number] [address] [place] [address] MCV (RBC) [Entitic vol] 93.8 fL Normal 80.0-100.0 [facility] Comment on above: Order Comment: Speci men Type: BLOOD SPECIMEN Ordering Facility: [facility] Address: [address] [place] [address] Performed By: #### 5 7021-8 #### [facility] CLIA [id number] [address] [place] [address]93 Monocytes (Bld) [#/Vol] 0.53 10*3/uL Normal <0.87 [facility] Comment on above: Order Comment: Speci men Type: BLOOD SPECIMEN Ordering Facility: [facility] Address: [address] [place] [address] Performed By: #### 5 7021-8 #### [facility] CLIA [id number] [address] [place] [address] 03602 Monocytes/100 WBC (Bld) 5.8 % Normal [facility] Comment on above: Order Comment: Speci men Type: BLOOD SPECIMEN Ordering Facility: [facility] Address: [address] [place] [address] Performed By: #### 5 7021-8 #### [facility] CLIA [id number] [address] [place] [address]323 Neutrophils (Bld) [#/Vol] 6.47 10*3/uL Normal 1.45-7.50 [facility] Comment on above: Order Comment: Speci men Type: BLOOD SPECIMEN Ordering Facility: [facility] Address: [address] [place] [address] Performed By: #### 5 7021-8 #### [facility] CLIA [id number] [address] [place] [address] 66151 Neutrophils/100 WBC (Bld) 71.0 % Normal [facility] Comment on above: Order Comment: Speci men Type: BLOOD SPECIMEN Ordering Facility: [facility] Address: [address] [place] [address] Performed By: #### 5 7021-8 #### [facility] CLIA [id number] [address] [place] [address] 27884 Nucleated RBC (Bld) [#/Vol] 10*3/uL Normal <0.01 [facility] Comment on above: Order Comment: Speci men Type: BLOOD SPECIMEN Ordering Facility: [facility] Address: [address] [place] [address] Performed By: #### 5 7021-8 #### [facility] CLIA [id number] [address] [place] [address] 34724 Nucleated RBC/100 WBC (Bld) [Ratio] 0.0 /100 WBC Normal [facility] Comment on above: Order Comment: Speci men Type: BLOOD SPECIMEN Ordering Facility: [facility] Address: [address] [place] [address] Performed By: #### 5 7021-8 #### [facility] CLIA [id number] [address] [place] [address] 88753 Platelet mean volume (Bld) [Entitic vol] 10.8 fL Normal 9.0-12.7 [facility] Comment on above: Order Comment: Speci men Type: BLOOD SPECIMEN Ordering Facility: [facility] Address: [address] [place] [address] Performed By: #### 5 7021-8 #### [facility] CLIA [id number] [address] [place] [address]3844 Platelets (Bld) [#/Vol] 253 10*3/uL Normal 150-400 [facility] Comment on above: Order Comment: Speci men Type: BLOOD SPECIMEN Ordering Facility: [facility] Address: [address] Performed By: #### 5 7021-8 #### [facility] CLIA [id number] [address] [place] [address] 22978 RBC (Bld) [#/Vol] 4.64 10*6/uL Normal 4.20-6.00 [facility] Comment on above: Order Comment: Speci men Type: BLOOD SPECIMEN Ordering Facility: [facility] Address: [address] Performed By: #### 5 7021-8 #### [facility] CLIA [id number] [address] [place] [address] WBC (Bld) [#/Vol] 9.12 10*3/uL Normal 3.70-11.00 [facility] Comment on above: Order Comment: Speci men Type: BLOOD SPECIMEN Ordering Facility: [facility] Address: [place] [address] Performed By: #### 5 7021-8 #### [facility] CLIA [id number] [address] [place] [address] [address] CHEST W IVCON * * *Final Report* * * DATE OF EXAM: Oct 27 2022 11:44AM [facility] 0539 - CT CHEST W IVCON [...] No abnormality in the imaged upper abdomen. Doctor Of Optometry (topogram) images: No additional findings. IMPRESSION: Stable [...] any questions regarding this interpretation, please call [phone]. If you are unable to reach us at the number above, please feel free to contact [facility] eRadiology at [phone]. 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 Parotid and submandibular spaces are normal. [employer] spaces appear normal. Infrahyoid Neck: Hypopharynx, larynx, [...] evidence of abnormal lymph nodes. [email or web address] Transcribe Date/Time: Oct 27 2022 11:56A Dictated by: KATJA HAMPTON MD This examination was interpreted and the report reviewed and electronically signed by: KATJA HAMPTON MD on Oct 27 2022 12:14PM EST Thank you for allowing us to participate in the care of your patient. Should there be any questions regarding this interpretation, please call [phone]. If you are unable to reach us at the number above, please feel free to contact [facility] at [phone]. [id number] Normal [facility] Comprehensive metabolic 2000 panelon 10-27-2022 Albumin [Mass/Vol] 4.3 g/dL Normal 3.9-4.9 [facility] Comment on above: Order Comment: Speci men Type: BLOOD SPECIMEN Ordering Facility: [facility] Address: [address] [place] [address] Performed By: #### 2 4323-8 #### [facility] CLIA [id number] [address] [place] [address]122 ALP [Catalytic activity/Vol] 89 U/L Normal 38-113 [facility] Comment on above: Order Comment: Speci men Type: BLOOD SPECIMEN Ordering Facility: [facility] Address: [address] [place] [address] Performed By: #### 2 4323-8 #### [facility] CLIA [id number] [address] [place] [address] 22075 ALT [Catalytic activity/Vol] 7 U/L Low 10-54 [facility] Comment on above: Order Comment: Speci men Type: BLOOD SPECIMEN Ordering Facility: [facility] Address: [address] [place] [address] Performed By: #### 2 4323-8 #### [facility] CLIA [id number] [address] [place] [address] 20587 Anion gap [Moles/Vol] 10 mmol/L Normal 9-18 [facility] Comment on above: Order Comment: Speci men Type: BLOOD SPECIMEN Ordering Facility: [facility] Address: [address] [place] [address] Performed By: #### 2 4323-8 #### [facility] CLIA [id number] [address] [place] [address] 08299 AST [Catalytic activity/Vol] 8 U/L Low 14-40 [facility] Comment on above: Order Comment: Speci men Type: BLOOD SPECIMEN Ordering Facility: [facility] Address: [address] Performed By: #### 2 4323-8 #### [facility] CLIA [id number] [address] [place] [address] Bilirubin [Mass/Vol] 0.3 mg/dL Normal 0.2-1.3 [facility] Comment on above: Order Comment: Speci men Type: BLOOD SPECIMEN Ordering Facility: [facility] Address: [address] [place] [address] Performed By: #### 2 4323-8 #### [facility] CLIA [id number] [address] [place] [address] Calcium [Mass/Vol] 9.6 mg/dL Normal 8.5-10.2 [facility] Comment on above: Order Comment: Speci men Type: BLOOD SPECIMEN Ordering Facility: [facility] Address: [address] [address] Performed By: #### 2 4323-8 #### [facility] CLIA [id number] [address] [place] [address] Chloride [Moles/Vol] 104 mmol/L Normal 97-105 [facility] Comment on above: Order Comment: Speci men Type: BLOOD SPECIMEN Ordering Facility: [facility] Address: [address] [address] Performed By: #### 2 4323-8 #### [facility] CLIA [id number] [address] [place] [address] CO2 [Moles/Vol] 27 mmol/L Normal 22-30 [facility] Comment on above: Order Comment: Speci men Type: BLOOD SPECIMEN Ordering Facility: [facility] Address: [address] [address] Performed By: #### 2 4323-8 #### [facility] CLIA [id number] [address] [place] [address] Creatinine [Mass/Vol] 0.93 mg/dL Normal 0.73-1.22 [facility] Comment on above: Order Comment: Trevor jordan Type: BLOOD SPECIMEN Ordering Facility: [facility] Address: [address] [address] Performed By: #### 2 4323-8 #### [facility] CLIA [id number] [address] [place] [address] ESTIMATED GLOMERULAR FILTRATION RATE 95 mL/min/1.73m??? Normal >=60 [facility] Comment on above: Order Comment: Trevor jordan Type: BLOOD SPECIMEN Ordering Facility: [facility] Address: [address] [address] Result Comment: Charisse mated Glomerular Filtration Rate [...] GFR. Performed By: #### 2 4323-8 #### [facility] CLIA [id number] [address] [place] [address] Glucose [Mass/Vol] 98 mg/dL Normal 74-99 [facility] Comment on above: Order Comment: Trevor nikki Type: BLOOD SPECIMEN Ordering Facility: [facility] Address: [address] [place] [address] Result Comment: The [place] [employer] (ADA) provides guidance for cutoff [...] Standards of Medical Care in Diabetes 2016, [place] [employer]. Diabetes Care. 2016.39(Suppl 1). Performed By: #### 2 4323-8 #### [facility] CLIA [id number] [address] [place] [address] Potassium [Moles/Vol] 4.5 mmol/L Normal 3.7-5.1 [facility] Comment on above: Order Comment: Speci men Type: BLOOD SPECIMEN Ordering Facility: [facility] Address: [address] [place] [address] Performed By: #### 2 4323-8 #### [facility] CLIA [id number] [address] [place] [address] Protein [Mass/Vol] 6.6 g/dL Normal 6.3-8.0 [facility] Comment on above: Order Comment: Speci men Type: BLOOD SPECIMEN Ordering Facility: [facility] Address: [address] [place] [address] Performed By: #### 2 4323-8 #### [facility] CLIA [id number] [address] [place] [address] Sodium [Moles/Vol] 141 mmol/L Normal 136-144 [facility] Comment on above: Order Comment: Speci men Type: BLOOD SPECIMEN Ordering Facility: [facility] Address: [address] [address] Performed By: #### 2 4323-8 #### [facility] CLIA [id number] [address] [place] [address] Urea nitrogen [Mass/Vol] 12 mg/dL Normal 9-24 [facility] Comment on above: Order Comment: Speci men Type: BLOOD SPECIMEN Ordering Facility: [facility] Address: [address] [address] Performed By: #### 2 4323-8 #### [facility] CLIA [id number] [address] [place] [address] Alanine aminotransferase [En zymatic activity/volume] in Serum or PlasmaOrdered By: Griselda Krause on 10-24-2022 ALT [Catalytic activity/Vol] 7 U/L 7-52 [facility] Albumin [Mass/volume] in Ser um or Plasma by Bromocresol green (BCG) dye binding methoOrdered By: Griselda Krause on 10-24-2022 Albumin BCG dye [Mass/Vol] 4.2 g/dL 3.5-5.7 [facility] Alkaline phosphatase [Enzyma tic activity/volume] in Serum or PlasmaOrdered By: Griselda Krause on 10-24-2022 ALP [Catalytic activity/Vol] 76 U/L 34-104 [facility] Aspartate aminotransferase [ Enzymatic activity/volume] in Serum or PlasmaOrdered By: Griselda Krause on 10-24-2022 AST [Catalytic activity/Vol] 10 U/L 13-39 [facility] Basophils Auto (Bld) [#/Vol] Ordered By: Griselda Krause on 10-24-2022 Basophils (Bld) [#/Vol] 0.0 10*3/uL 0.0-0.2 [facility] Basophils/100 WBC Auto (Bld) Ordered By: Griselda Krause on 10-24-2022 Basophils/100 WBC (Bld) 0.9 % . [facility] Bilirubin.total [Mass/volume ] in Serum or PlasmaOrdered By: Griselda Krause on 10-24-2022 Bilirubin [Mass/Vol] 0.4 mg/dL 0.3-1.0 [facility] Calcium [Mass/volume] in Ser um or PlasmaOrdered By: Griselda Krause on 10-24-2022 Calcium [Mass/Vol] 9.1 mg/dL 8.6-10.3 [facility] Carbon dioxide, total [Moles /volume] in Serum or PlasmaOrdered By: Griselda Krause on 10-24-2022 CO2 [Moles/Vol] 28.3 mmol/L 21.0-31.0 [facility] Chloride [Moles/volume] in [place] or PlasmaOrdered By: Griselda Krause on 10-24-2022 Chloride [Moles/Vol] 105 mmol/L 98-107 [facility] Cholesterol [Mass/volume] in Serum or PlasmaOrdered By: Griselda Krause on 10-24-2022 Cholesterol [Mass/Vol] 240 mg/dL 140-200 [facility] Comment on above: Chol less than 200 m g/dl low riskChol 201-239 mg/dl borderline riskChol 240 mg/dl and greater high risk Cholesterol in LDL Calc [Mas s/Vol]Ordered By: Griselda Krause on 10-24-2022 Cholesterol in LDL [Mass/Vol] 169 mg/dL 0-100 [facility] Comment on above: LDL ATP III CLASSIFI CATIONLDL less than 100 mg/dL OptimalLDL 100-129 mg/dL Near or above optimalLDL 130-159 mg/dL Borderline highLDL 160-189 mg/dL HighLDL greater than 189 mg/dL Very high Cholesterol in VLDL Calc [Ma ss/Vol]Ordered By: Griselda Krause on 10-24-2022 Cholesterol in VLDL [Mass/Vol] 35 mg/dL [facility] Complete Blood Count Auto Di ffon 10-24-2022 Basophils (Bld) [#/Vol] 0.0 10*3/uL Normal 0.0-0.2 [facility] Comment on above: Order Comment: Reaso n for Exam Hyperlipidemia Result Comment: PERF ORMED BY: [place] [address] PATHOLOGIST [employer]OMOBILE UPHOLSTER[employer] CARMEN LYNCH M.D. Performed By: #### C BC, CMP, LIPID, TSH3, PSAS #### [facility] [address] [place] [address] [place] Basophils/100 WBC (Bld) 0.9 % Normal . [facility] Comment on above: Order Comment: Reaso n for Exam Hyperlipidemia Performed By: #### C BC, CMP, LIPID, TSH3, PSAS #### [facility] [address] [place] [address] [place] Eosinophils (Bld) [#/Vol] 0.1 10*3/uL Normal 0.0-0.45 [facility] Comment on above: Order Comment: Reaso n for Exam Hyperlipidemia Performed By: #### C BC, CMP, LIPID, TSH3, PSAS #### [facility] [address] [place] [address] [place] Eosinophils/100 WBC (Bld) 2.0 % Normal . [facility] Comment on above: Order Comment: Reaso n for Exam Hyperlipidemia Performed By: #### C BC, CMP, LIPID, TSH3, PSAS #### [address] Erythrocyte distribution width (RBC) [Ratio] 14.7 % Normal 12.0-14.8 [facility] Comment on above: Order Comment: Reaso n for Exam Hyperlipidemia Performed By: #### C BC, CMP, LIPID, TSH3, PSAS #### [address] Hematocrit (Bld) [Volume fraction] 43.4 % Normal 38.8-50.0 [facility] Comment on above: Order Comment: Reaso n for Exam Hyperlipidemia Performed By: #### C BC, CMP, LIPID, TSH3, PSAS #### [address] Hemoglobin (Bld) [Mass/Vol] 14.5 g/dL Normal 13.0-17.0 [facility] Comment on above: Order Comment: Reaso n for Exam Hyperlipidemia Performed By: #### C BC, CMP, LIPID, TSH3, PSAS #### [address] Lymphocytes (Bld) [#/Vol] 2.0 10*3/uL Normal 1.00-4.8 [facility] Comment on above: Order Comment: Reaso n for Exam Hyperlipidemia Performed By: #### C BC, CMP, LIPID, TSH3, PSAS #### [address] Lymphocytes/100 WBC (Bld) 39.8 % Normal . [facility] Comment on above: Order Comment: Reaso n for Exam Hyperlipidemia Performed By: #### C BC, CMP, LIPID, TSH3, PSAS #### [address] MCH (RBC) [Entitic mass] 31.5 pg Normal 27.5-35.2 [facility] Comment on above: Order Comment: Reaso n for Exam Hyperlipidemia Performed By: #### C BC, CMP, LIPID, TSH3, PSAS #### [address] MCV (RBC) [Entitic vol] 94.0 fL Normal 83.5-101 [facility] Comment on above: Order Comment: Reaso n for Exam Hyperlipidemia Performed By: #### C BC, CMP, LIPID, TSH3, PSAS #### [address] Mean Corpuscular HGB Conc 33.5 g/dL Normal 32.5-35.6 [facility] Comment on above: Order Comment: Reaso n for Exam Hyperlipidemia Performed By: #### C BC, CMP, LIPID, TSH3, PSAS #### [address] Monocytes (Bld) [#/Vol] 0.3 10*3/uL Normal 0.0-0.8 [facility] Comment on above: Order Comment: Reaso n for Exam Hyperlipidemia Performed By: #### C BC, CMP, LIPID, TSH3, PSAS #### [place] [address] [place] Monocytes/100 WBC (Bld) 5.4 % Normal . [facility] Comment on above: Order Comment: Reaso n for Exam Hyperlipidemia Performed By: #### C BC, CMP, LIPID, TSH3, PSAS #### [address] Neutrophils (Bld) [#/Vol] 2.6 10*3/uL Normal 1.8-7.7 [facility] Comment on above: Order Comment: Reaso n for Exam Hyperlipidemia Performed By: #### C BC, CMP, LIPID, TSH3, PSAS #### [place] [address] [place] Neutrophils/100 WBC (Bld) 51.9 % Normal . [facility] Comment on above: Order Comment: Reaso n for Exam Hyperlipidemia Performed By: #### C BC, CMP, LIPID, TSH3, PSAS #### [place] [address] [place] NRBC% 0.1 /100{WBC} Normal 0-0.5 [facility] Comment on above: Order Comment: Reaso n for Exam Hyperlipidemia Performed By: #### C BC, CMP, LIPID, TSH3, PSAS #### [facility] [address] Platelet mean volume (Bld) [Entitic vol] 9.6 fL Normal 6.6-10.1 [facility] Comment on above: Order Comment: Reaso n for Exam Hyperlipidemia Performed By: #### C BC, CMP, LIPID, TSH3, PSAS #### [facility] [address] Platelets (Bld) [#/Vol] 247 10*3/uL Normal 150-450 [facility] Comment on above: Order Comment: Reaso n for Exam Hyperlipidemia Performed By: #### C BC, CMP, LIPID, TSH3, PSAS #### [facility] [address] [place] [address] [place] RBC (Bld) [#/Vol] 4.61 10*6/uL Normal 3.90-5.60 [facility] Comment on above: Order Comment: Reaso n for Exam Hyperlipidemia Performed By: #### C BC, CMP, LIPID, TSH3, PSAS #### [facility] [address] WBC (Bld) [#/Vol] 5.0 10*3/uL Normal 4.1-10.5 [facility] Comment on above: Order Comment: Reaso n for Exam Hyperlipidemia Performed By: #### C BC, CMP, LIPID, TSH3, PSAS #### [facility] [address] Comprehensive Metabolic Pane chanel 10-24-2022 Albumin [Mass/Vol] 4.2 g/dL Normal 3.5-5.7 [facility] Comment on above: Order Comment: Reaso n for Exam Hyperlipidemia Performed By: #### C BC, CMP, LIPID, TSH3, PSAS ####[facility] [address] [place] [address] [place] Albumin/Globulin [Mass ratio] 2.0 {ratio} Normal [facility] Comment on above: Order Comment: Reaso n for Exam Hyperlipidemia Performed By: #### C BC, CMP, LIPID, TSH3, PSAS ####[address] [place] [id number] [facility] ALP [Catalytic activity/Vol] 76 U/L Normal 34-104 [facility] Comment on above: Order Comment: Reaso n for Exam Hyperlipidemia Performed By: #### C BC, CMP, LIPID, TSH3, PSAS ####[id number] [facility] ALT [Catalytic activity/Vol] 7 U/L Normal 7-52 [facility] Comment on above: Order Comment: Reaso n for Exam Hyperlipidemia Performed By: #### C BC, CMP, LIPID, TSH3, PSAS ####[id number] [facility] Anion gap [Moles/Vol] 11.7 mmol/L Normal 6.0-15.0 [facility] Comment on above: Order Comment: Reaso n for Exam Hyperlipidemia Performed By: #### C BC, CMP, LIPID, TSH3, PSAS ####[address] [place] [id number] [facility] AST [Catalytic activity/Vol] 10 U/L Low 13-39 [facility] Comment on above: Order Comment: Reaso n for Exam Hyperlipidemia Performed By: #### C BC, CMP, LIPID, TSH3, PSAS ####[address] [id number] [facility] Bilirubin [Mass/Vol] 0.4 mg/dL Normal 0.3-1.0 [facility] Comment on above: Order Comment: Reaso n for Exam Hyperlipidemia Performed By: #### C BC, CMP, LIPID, TSH3, PSAS ####[address] [id number] [facility] Calcium [Mass/Vol] 9.1 mg/dL Normal 8.6-10.3 [facility] Comment on above: Order Comment: Reaso n for Exam Hyperlipidemia Performed By: #### C BC, CMP, LIPID, TSH3, PSAS ####[address] [place] [id number] [facility] Chloride [Moles/Vol] 105 mmol/L Normal 98-107 [facility] Comment on above: Order Comment: Reaso n for Exam Hyperlipidemia Performed By: #### C BC, CMP, LIPID, TSH3, PSAS ####[address] [place] [id number] [facility] CO2 [Moles/Vol] 28.3 mmol/L Normal 21.0-31.0 [facility] Comment on above: Order Comment: Reaso n for Exam Hyperlipidemia Performed By: #### C BC, CMP, LIPID, TSH3, PSAS ####[address] Creatinine [Mass/Vol] 0.88 mg/dL Normal 0.70-1.30 [facility] Comment on above: Order Comment: Reaso n for Exam Hyperlipidemia Performed By: #### C BC, CMP, LIPID, TSH3, PSAS ####[address] [place] [id number] [facility] GFR/1.73 sq M.predicted MDRD (S/P/Bld) [Vol rate/Area] mL/min/{1.73_m2} [facility] Comment on above: Order Comment: Reaso n for Exam Hyperlipidemia Performed By: #### C BC, CMP, LIPID, TSH3, PSAS ####[address] [place] [id number] [facility] Globulin (S) [Mass/Vol] 2.1 g/dL [facility] Comment on above: Order Comment: Reaso n for Exam Hyperlipidemia Performed By: #### C BC, CMP, LIPID, TSH3, PSAS ####[address] [place] [id number] [facility] Glucose [Mass/Vol] 82 mg/dL Normal 70-100 [facility] Comment on above: Order Comment: Reaso n for Exam Hyperlipidemia Result Comment: [facility] Glucose Reference Range is dependent on time and content of last meal. Glucose of more than 200 mg/dL in a nonstressed, ambulatory subject supports the diagnosis of Diabetes Mellitus. ADA recommended reference range Performed By: #### C BC, CMP, LIPID, TSH3, PSAS ####[address] Potassium [Moles/Vol] 4.0 mmol/L Normal 3.5-5.1 [facility] Comment on above: Order Comment: Reaso n for Exam Hyperlipidemia Performed By: #### C BC, CMP, LIPID, TSH3, PSAS ####[address] [place] [id number] [facility] Protein [Mass/Vol] 6.3 g/dL Low 6.4-8.9 [facility] Comment on above: Order Comment: Reaso n for Exam Hyperlipidemia Performed By: #### C BC, CMP, LIPID, TSH3, PSAS ####[address] [place] [address] Sodium [Moles/Vol] 141 mmol/L Normal 136-145 [facility] Comment on above: Order Comment: Reaso n for Exam Hyperlipidemia Performed By: #### C BC, CMP, LIPID, TSH3, PSAS ####[place] [id number] [facility] Urea nitrogen [Mass/Vol] 15 mg/dL Normal 7-25 [facility] Comment on above: Order Comment: Reaso n for Exam Hyperlipidemia Performed By: #### C BC, CMP, LIPID, TSH3, PSAS ####[address] Creatinine [Mass/volume] in Serum or PlasmaOrdered By: Griselda Krause on 10-24-2022 Creatinine [Mass/Vol] 0.88 mg/dL 0.70-1.30 [facility] Eosinophils Auto (Bld) [#/Vo l]Ordered By: Griselda Krause on 10-24-2022 Eosinophils (Bld) [#/Vol] 0.1 10*3/uL 0.0-0.45 [facility] Eosinophils/100 WBC Auto (Bl d)Ordered By: Griselda Krause on 10-24-2022 Eosinophils/100 WBC (Bld) 2.0 % . [facility] Erythrocyte distribution wid th Auto (RBC) [Ratio]Ordered By: Griselda Krause on 10-24-2022 Erythrocyte distribution width (RBC) [Ratio] 14.7 % 12.0-14.8 [facility] Globulin Calc (S) [Mass/Vol] Ordered By: Griselda Krause on 10-24-2022 Globulin (S) [Mass/Vol] 2.1 g/dL [facility] Glucose [Mass/volume] in Ser um or PlasmaOrdered By: Griselda Krause on 10-24-2022 Glucose [Mass/Vol] 82 mg/dL 70-100 [facility] Comment on above: ADA recommended refe rence rangeRandom Glucose Reference Range is dependent on time and content of last meal. Glucose of more than 200 mg/dL in a nonstressed, ambulatory subject supports the diagnosis of Diabetes Mellitus. Hematocrit Auto (Bld) [Volum e fraction]Ordered By: Griselda Krause on 10-24-2022 Hematocrit (Bld) [Volume fraction] 43.4 % 38.8-50.0 [facility] Hemoglobin [Mass/volume] in BloodOrdered By: Griselda Krause on 10-24-2022 Hemoglobin (Bld) [Mass/Vol] 14.5 g/dL 13.0-17.0 [facility] Leukocytes [#/volume] correc mone for nucleated erythrocytes in Blood by Automated counOrdered By: Griselda Krause on 10-24-2022 WBC corrected for nucl RBC Auto (Bld) [#/Vol] 5.0 10*3/uL 4.1-10.5 [facility] Lipid Panelon 10-24-2022 Cholesterol [Mass/Vol] 240 mg/dL High 140-200 [facility] Comment on above: Order Comment: Reaso n for Exam Hyperlipidemia Result Comment: Chol less than 200 mg/dl low risk Chol 201-239 mg/dl borderline risk Chol 240 mg/dl and greater high risk Performed By: #### C BC, CMP, LIPID, TSH3, PSAS ####[facility] [id number] [place] [address] [facility] Cholesterol in HDL [Mass/Vol] 36 mg/dL Normal 29-71 [facility] Comment on above: Order Comment: Reaso n for Exam Hyperlipidemia Result Comment: HDL CHOL ATP-III CLASSIFICATION Cardiovascular Risk HDL > or equal to 60 mg/dL LOW HDL < 40 mg/dL HIGH Performed By: #### C BC, CMP, LIPID, TSH3, PSAS ####[facility] [address] [place] [id number] [facility] Cholesterol.total/Chol esterol in HDL [Mass ratio] 6.7 {ratio} Normal <5.0 [facility] Comment on above: Order Comment: Reaso n for Exam Hyperlipidemia Performed By: #### C BC, CMP, LIPID, TSH3, PSAS ####[place] [address] LDL Cholesterol,Calculated 169 mg/dL High 0-100 [facility] Comment on above: Order Comment: Reaso n for Exam Hyperlipidemia Result Comment: LDL ATP III CLASSIFICATION LDL less than 100 mg/dL Optimal LDL 100-129 mg/dL Near or above optimal LDL 130-159 mg/dL Borderline high LDL 160-189 mg/dL High LDL greater than 189 mg/dL Very high Performed By: #### C BC, CMP, LIPID, TSH3, PSAS ####[address] Triglyceride w/Reflex 175 mg/dL High 0-149 [facility] Comment on above: Order Comment: Reaso n for Exam Hyperlipidemia Result Comment: TRIG ATP III CLASSIFICATION TRIG less than 150 mg/dL Normal TRIG 150-199 mg/dL Borderline high TRIG 200-500 mg/dL High TRIG greater than 500 mg/dL Very high Standard traceable to the Center for Disease Conrtrol and Prevention (CDC) test method. Performed By: #### C BC, CMP, LIPID, TSH3, PSAS ####[place] [address] [place] [id number] [facility] VLDL CHOLESTEROL 35 mg/dL Normal [facility] Comment on above: Order Comment: Reaso n for Exam Hyperlipidemia Performed By: #### C BC, CMP, LIPID, TSH3, PSAS ####[place] [address] [place] [id number] [facility] Lymphocytes Auto (Bld) [#/Vo l]Ordered By: Griselda Krause on 10-24-2022 Lymphocytes (Bld) [#/Vol] 2.0 10*3/uL 1.00-4.8 [facility] Lymphocytes/100 WBC Auto (Bl d)Ordered By: Griselda Krause on 10-24-2022 Lymphocytes/100 WBC (Bld) 39.8 % . [facility] MCH Auto (RBC) [Entitic mass ]Ordered By: Griselda Krause on 10-24-2022 MCH (RBC) [Entitic mass] 31.5 pg 27.5-35.2 [facility] MCHC Auto (RBC) [Mass/Vol]Or dered By: Griselda Krause on 10-24-2022 MCHC (RBC) [Mass/Vol] 33.5 g/dL 32.5-35.6 [facility] MCV Auto (RBC) [Entitic vol] Ordered By: Griselda Krause on 10-24-2022 MCV (RBC) [Entitic vol] 94.0 fL 83.5-101 [facility] Monocytes Auto (Bld) [#/Vol] Ordered By: Griselda Krause on 10-24-2022 Monocytes (Bld) [#/Vol] 0.3 10*3/uL 0.0-0.8 [facility] Monocytes/100 WBC Auto (Bld) Ordered By: Griselda Krause on 10-24-2022 Monocytes/100 WBC (Bld) 5.4 % . [facility] Neutrophils Auto (Bld) [#/Vo l]Ordered By: Griselda Krause on 10-24-2022 Neutrophils (Bld) [#/Vol] 2.6 10*3/uL 1.8-7.7 [facility] Neutrophils/100 WBC Auto (Bl d)Ordered By: Griselda Krause on 10-24-2022 Neutrophils/100 WBC (Bld) 51.9 % . [facility] No Panel InformationOrdered By: Griselda Krause on 10-24-2022 Estimated GFR (CKD-EPI) > 60.0 mL/Min [facility] Creatinine Clearance (Chem N/A [facility] Nucleated erythrocytes [Pres ence] in Blood by Automated countOrdered By: Griselda Krause on 10-24-2022 Nucleated RBC Auto Ql (Bld) 0.1 /100{WBC} 0-0.5 [facility] PSA Screen (Yearly Only)on 0 10-24-2022 PSA Screen (Yearly Only) 0.370 ng/mL Normal 0.000-4.00 0 [facility] Comment on above: Order Comment: Reaso n for Exam Screening for prostate cancer Is patient <50 yrs? Medicare does not pay <50.: N What is the date of the last PSA Screen?: [id number] Is Medicare the insurance?: N Did you verify eligibility (Dx Time) check TestViewGp: YES TO ALL Result Comment: PERF ORMED BY: [place] [address] PATHOLOGIST AUTOMOBILE UPHOLSTERER CARMEN LYNCH M.D. Performed By: #### C BC, CMP, LIPID, TSH3, PSAS #### [address] Platelet mean volume Auto (B ld) [Entitic vol]Ordered By: Griselda Krause on 10-24-2022 Platelet mean volume (Bld) [Entitic vol] 9.6 fL 6.6-10.1 [facility] Platelets Auto (Bld) [#/Vol] Ordered By: Griselda Krause on 10-24-2022 Platelets (Bld) [#/Vol] 247 10*3/uL 150-450 [facility] Potassium [Moles/volume] in Serum or PlasmaOrdered By: Griselda Krause on 10-24-2022 Potassium [Moles/Vol] 4.0 mmol/L 3.5-5.1 [facility] Prostate specific Ag [Mass/v olume] in Serum or PlasmaOrdered By: Griselda Krause on 10-24-2022 Prostate specific Ag [Mass/Vol] 0.370 ng/mL 0.000-4.00 0 [facility] Protein [Mass/volume] in Ser um or PlasmaOrdered By: Griselda Krause on 10-24-2022 Protein [Mass/Vol] 6.3 g/dL 6.4-8.9 [facility] RBC Auto (Bld) [#/Vol]Ordere d By: Griselda Krause on 10-24-2022 RBC (Bld) [#/Vol] 4.61 10*6/uL 3.90-5.60 [facility] Serum or plasma albumin/glob ulin mass ratioOrdered By: Griselda Krause on 10-24-2022 Albumin/Globulin [Mass ratio] 2.0 {ratio} [facility] Serum or plasma anion gap de terminationOrdered By: Griselda Krause on 10-24-2022 Anion gap [Moles/Vol] 11.7 mmol/L 6[facility]0-[facility] Serum or plasma high density lipoprotein (HDL) cholesterol measurementOrdered By: Griselda Krause on 10-24-2022 Cholesterol in HDL [Mass/Vol] 36 mg/dL 29-71 [facility] Comment on above: HDL CHOL ATP-III CLA SSIFICATION Cardiovascular RiskHDL > or equal to 60 mg/dL LOWHDL < 40 mg/dL HIGH Serum or plasma total choles terol/high density lipoprotein (HDL) cholesterol mass ratOrdered By: Griselda Krasue on 10-24-2022 Cholesterol.total/Chol esterol in HDL [Mass ratio] 6.7 {ratio} <5.0 [facility] Sodium [Moles/volume] in Ser um or PlasmaOrdered By: Griselda Krause on 10-24-2022 Sodium [Moles/Vol] 141 mmol/L 136-145 [facility] Thyroid Stimulating Hormoneo n 10-24-2022 TSH Qn 1.26 m[IU]/L Normal 0.45-5.33 [facility] Comment on above: Order Comment: Reaso n for Exam Hyperlipidemia Result Comment: PERF ORMED BY: [facility] [address] [place] [address] PATHOLOGIST AUTOMOBILE UPHOLSTER[employer] CARMEN LYNCH M.D. Performed By: #### C BC, CMP, LIPID, TSH3, PSAS ####[facility] [place] [address] [facility] Thyrotropin [Units/volume] i n Serum or PlasmaOrdered By: Griselda Krause on 10-24-2022 TSH Qn 1.26 m[IU]/L 0.45-5.33 [facility] [facility] Triglyceride [Mass/volume] i n Serum or PlasmaOrdered By: Griselda Krause on 10-24-2022 Triglyceride [Mass/Vol] 175 mg/dL 0-149 [facility] Comment on above: TRIG ATP III CLASSIF ICATIONTRIG less than 150 mg/dL NormalTRIG 150-199 mg/dL Borderline highTRIG 200-500 mg/dL High TRIG greater than 500 mg/dL Very highStandard traceable to the Center for Disease Conrtrol and Prevention (CDC) test method. Urea nitrogen [Mass/volume] in Serum or PlasmaOrdered By: Griselda Krause on 10-24-2022 Urea nitrogen [Mass/Vol] 15 mg/dL 7-25 [facility] WBC Auto (Bld) [#/Vol]Ordere d By: Griselda Krause on 10-24-2022 WBC (Bld) [#/Vol] 5.0 10*3/uL 4.1-10.5 [facility] BRIEF OP NOTon 09-28-2022 BRIEF OP NOT HNO ID: [id number] Author: Demond Cat APRN.CNP Service: Interventional Radiology Author Type: Nurse Practitioner Type: Brief Op Note Filed: 09/28/2022 3:14 PM Note Text: BRIEF OPERATIVE / PROCEDURE NOTE LOG ID: [id number] SURGERY/PROCEDURE DATE: 09/28/2022 INCISION/PROCEDURE START TIME: 1:58 PM INCISION CLOSE/PROCEDURE END TIME: 2:27 PM SURGEON(S)/PROCEDURALIST( S) AND WASTE PAPER HAMMERMILL OPERATOR(S): Surgeon(s) and Role: * Demond Cat APRN.CREDIT INVESTIGATOR - Primary No Additional Staff SURGERY/PROCEDURE(S): LP [...] DIAGNOSIS: Same as Preop SIGNATURE: Demond Cat APRN.CREDIT INVESTIGATOR PATIENT NAME: Jovani Melendez DATE: September 28, 2022 TIME: 3:10 PM Normal [facility] Bacteria CSF Culton 09-29-19 23 Bacteria identified Cx Nom (CSF) CULTURE, CSF: No growth 5 days GRAM STAIN: No organisms seen No Polymorphonuclear Leukocytes Few Mononuclear cells Gram stain performed on cytospun specimen. Gram stain results reviewed and confirmed by [facility] microbiology Normal [facility] Comment on above: Performed By: #### 6 06-4 #### [facility] CLIA [id number] [address] [facility] [id number] STATES OF [facility] CSF MANUAL DIFFon 09-28-2022 DIF TTL, CSF 100 cells counted Normal [facility] Comment on above: Order Comment: Speci men Type: CEREBROSPINAL FLUID Ordering Facility: [facility] Address: [address] [place] [address] Performed By: #### L [id number], 25775-9 #### [facility] CLIA [id number] [address] [place] [address] [place] LYMPH%, CSF 56 % Normal 50-90 [facility] Comment on above: Order Comment: Speci men Type: CEREBROSPINAL FLUID Ordering Facility: [facility] Address: [address] [place] [address] Performed By: #### L [id number], 36478-2 #### [facility] CLIA [id number] [address] [place] [address] [place] MACRO%, CSF 12 % High <1 [facility] Comment on above: Order Comment: Speci men Type: CEREBROSPINAL FLUID Ordering Facility: [facility] Address: [address] [address] Performed By: #### L [id number], 48579-4 #### [facility] CLIA [id number] [address] [place] [address] [place] MONO%, CSF 32 % Normal 10-50 [facility] Comment on above: Order Comment: Speci men Type: CEREBROSPINAL FLUID Ordering Facility: [facility] Address: [address] [place] [address] Performed By: #### L [id number], 37806-2 #### [facility] CLIA [id number] [address] [place] [address] Cell count panel (CSF)on Clarity (CSF) Clear Normal Clear [facility] Comment on above: Order Comment: Speci men Type: CEREBROSPINAL FLUID Ordering Facility: [facility] Address: [address] [place] [address] Performed By: #### L [id number], 91743-3 #### [facility] CLIA [id number] [address] [place] [address] Clarity (Unsp spec) Not Indicated Normal Clear Cl [facility] Comment on above: Order Comment: Speci men Type: CEREBROSPINAL FLUID Ordering Facility: [facility] Address: [address] [place] [address] Performed By: #### L [id number], 51893-6 #### [facility] CLIA [id number] [address] [place] [address] Color (CSF) Colorless Normal Colorless [facility] Comment on above: Order Comment: Speci men Type: CEREBROSPINAL FLUID Ordering Facility: [facility] Address: [address] [place], [place] [address] Performed By: #### L [id number], 82572-9 #### [facility] CLIA [id number] [address] [place] [address] OF [facility] Color (Spun CSF) Not Indicated Normal Colorless [facility] Comment on above: Order Comment: Speci men Type: CEREBROSPINAL FLUID Ordering Facility: [facility] Address: [address] Performed By: #### L [id number], 37765-3 #### [facility] CLIA [id number] [address] [place] [address] OF [facility] CSF TUBE NUMBER Tube 2 Normal [facility] Comment on above: Order Comment: Speci men Type: CEREBROSPINAL FLUID Ordering Facility: [facility] Address: [address] [place], [place] [address] Performed By: #### L [id number], 02108-9 #### [facility] CLIA [id number] [address] [place] [address] RBC Manual cnt (CSF) [#/Vol] 1 cells/uL Normal 0-5 [facility] Comment on above: Order Comment: Speci men Type: CEREBROSPINAL FLUID Ordering Facility: [facility] Address: [address] [address] Performed By: #### L [id number], 39987-5 #### [facility] CLIA [id number] [address] [place] [address] WBC Manual cnt (CSF) [#/Vol] 1 cells/uL Normal 0-5 [facility] Comment on above: Order Comment: Speci men Type: CEREBROSPINAL FLUID Ordering Facility: [facility] Address: [address] [place] [address] Performed By: #### L [id number], 32237-0 #### [facility] CLIA [id number] [address] [place] [address] IR LUMBAR PUNCTURE DIAGon IR LUMBAR PUNCTURE DIAG * * *Final Report* * * DATE OF EXAM: Sep 28 2022 2:41PM [facility] 7594 - IR LUMBAR PUNCTURE DIAG / [...] guidance was performed in conjunction with the injection mold tooling technician. Plane A, Air Kerma: 20.0 mGy Dose Area Product (DAP): 80507.1 mGy*cm2 Fluoro time: 3:54 min: sec Post-Procedure: [...] The procedure was performed by: Demond Cat APRN.CREDIT INVESTIGATOR Piccoloist: HARPER Transcribe Date/Time: Sep 28 2022 3:15P Dictated by : DEMOND CAT CNP This examination was interpreted and the report reviewed and electronically signed by: DEMOND CAT CNP on Sep 28 2022 3:22PM EST [id number] [facility] NURSING PROGon 09-28-2022 NURSING PROG HNO ID: [id number] Author: Court Magana RN Service: Nursing Author Type: Registered Nurse [...] Care Provider Electronically Signed By: Court Magana [facility] MRI BRAIN WO/W IVCONon 09-22 MRI BRAIN WO/W IVCON * * *Final Report* * * DATE OF EXAM: Sep 22 2022 3:02PM [facility] 0295 - MRI BRAIN WO/W IVCON / [...] NONSPECIFIC PONTINE SIGNAL ABNORMALITY WITHOUT ABNORMAL ENHANCEMENT Piccoloist: HARPER Transcribe Date/Time: Sep 22 2022 3:14P Dictated by : MARY COLORADO, DO This examination was interpreted and the report reviewed and electronically signed by: SALENA MICHAEL MD on Sep 22 2022 3:42PM EST [id number] Normal [facility] CNPBetsey 09-18-2022 CNPN Telephone (NSCAMN) ----- JOVANI MELENDEZ ([id number]) 1960 M Date Time Provider Department 09/18/22 KELTON PEREZ NSCAMN During your visit today, we recorded the following information about you: Selam Ugarte Adm 09/18/2022 12:20 PM Signed General Call Caller [...] be causing symptoms? Message sent to Kelton SAAVDERA for review and recommendation. 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 Normal [facility] CNOVon 09-13-2022 CNOV Office Visit (NSCAMN ) ----- NORAJOVANI Sheridan ([id number]) 1960 M Date Time Provider Department 09/13/22 10:15 AM KELTON PEREZ NSCAMN During your visit today, we recorded the following information about you: Temperature Pulse Respiration Blood pressure 97.4 degrees 70/minute 18/minute 133/61 Weight Height 77.3 kg 1.706 m Kelton Perez PA-C 09/20/2022 11:24 AM Addendum This note was created using NoteWriter. Subjective Jovanirios Melendez is a 61 year old male [...] or pronator drift. Coordination: Romberg sign negative. Wcxztp-Ozbh-Kfvjjr Test normal. Gait: Gait abnormal. Comments: Slightly [...] which included preparing to see the patient, [id number] patient care, completing clinical documentation, obtaining and/or reviewing separately obtained history, performing a medically appropriate examination, counseling and educating the patient/fam (more content not included)... Normal [facility] COVID + FLU Quick Testingon 08-01-2022 SARS-CoV-2 (COVID-19) RNA JER+probe Ql (Unsp spec) Negative [facility] [employer] Other COVID + FLU Quick Testing neagative [facility] [employer] Other COVID + FLU Quick Testing Negative [facility] [employer] Other RSVon 08-01-2022 RSV Ag IA Ql (Unsp spec) Positive [facility] [employer] Other Cerebrospinal fluid post-valdez trifugation appearance determinationOrdered By: Elvi Cadena on 07-17-2022 Appearance (Spun CSF) Colorless Colorless [facility] Cerebrospinal fluid sample t ube volume measurementOrdered By: Elvi Cadena on 07-17-2022 Specimen volume (CSF) 22.0 mL [facility] Color CSFOrdered By: Elvi Cadena on 07-17-2022 Color (CSF) Colorless Colorless [facility] Manual cerebrospinal fluid e rythrocytes count (number/volume)Ordered By: Elvi Cadena on 07-17-2022 RBC Manual cnt (CSF) [#/Vol] 0 /uL [facility] Comment on above: The reference interv al and other method performance specifications have not been established for this body fluid. The test result must be integrated into the clinical context for interpretation. No Panel InformationOrdered By: Elvi Cadena on 07-17-2022 CSF Appearance Clear Clear [facility] CSF Tube Number Tube number: 1 [facility] Nucleated cells [#/volume] i n Cerebral spinal fluid by Manual countOrdered By: Elvi Cadena on 07-17-2022 Nucleated cells Manual cnt (CSF) [#/Vol] 0.003 10*3/uL 0-5 [facility] Activated partial thrombopla stin time (aPTT) in platelet poor plasma by coagulation aOrdered By: Loi Wong on 04-16-2022 aPTT Coag (PPP) [Time] 32.8 s 25.1-36.5 [facility] Basophils Auto (Bld) [#/Vol] Ordered By: Loi Wong on 04-16-2022 Basophils (Bld) [#/Vol] 0.1 10*3/uL 0.0-0.2 [facility] Basophils/100 WBC Auto (Bld) Ordered By: Loi Wong on 04-16-2022 Basophils/100 WBC (Bld) 1.2 % . [facility] Creatine kinase [Enzymatic a ctivity/volume] in Serum or PlasmaOrdered By: Loi Wong on 04-16-2022 CK [Catalytic activity/Vol] 69 U/L 22-269 [facility] Creatinine and Glomerular fi ltration rate.predicted panel (S/P/Bld)Ordered By: Loi Wong on 04-16-2022 Creatinine [Mass/Vol] 0.97 mg/dL 0.64-1.27 [facility] Eosinophils Auto (Bld) [#/Vo l]Ordered By: Loi Wong on 04-16-2022 Eosinophils (Bld) [#/Vol] 0.1 10*3/uL 0.0-0.45 [facility] Eosinophils/100 WBC Auto (Bl d)Ordered By: Loi Wong on 04-16-2022 Eosinophils/100 WBC (Bld) 1.2 % . [facility] Erythrocyte distribution wid th Auto (RBC) [Ratio]Ordered By: Loi Wong on 04-16-2022 Erythrocyte distribution width (RBC) [Ratio] 14.1 % 12.0-14.8 [facility] Estimated glomerular filtrat ion rate (GFR) non- AmericanOrdered By: Loi Wong on 04-16-2022 GFR/1.73 sq M.predicted among non-blacks MDRD (S/P/Bld) [Vol rate/Area] > 60 mL/Min [facility] Hematocrit Auto (Bld) [Volum e fraction]Ordered By: Loi Wong on 04-16-2022 Hematocrit (Bld) [Volume fraction] 43.2 % 38.8-50.0 [facility] Hemoglobin [Mass/volume] in BloodOrdered By: Loi Wong on 04-16-2022 Hemoglobin (Bld) [Mass/Vol] 14.7 g/dL 13.0-17.0 [facility] Laboratory - Chemistry and C hemistry - challengeOrdered By: Loi Wong on 04-16-2022 Natriuretic peptide B (Bld) [Mass/Vol] 29.0 pg/mL 5-100 [facility] - CoagulationOrde red By: Loi Wong on 04-16-2022 PT Coag (PPP) [Time] 12.0 s 9.0-12.9 [facility] Laboratory - Hematology and Cell countsOrdered By: Loi Wong on 04-16-2022 Nucleated RBC/100 WBC (Bld) [Ratio] 0.1 % 0-0.5 [facility] Leukocytes [#/volume] in Blo od by Automated countOrdered By: Loi Wong on 04-16-2022 WBC (Bld) [#/Vol] 7.7 10*3/uL 4.5-11.0 [facility] Lymphocytes Auto (Bld) [#/Vo l]Ordered By: Loi Wong on 04-16-2022 Lymphocytes (Bld) [#/Vol] 2.3 10*3/uL 1.00-4.8 [facility] Lymphocytes/100 WBC Auto (Bl d)Ordered By: Loi Wong on 04-16-2022 Lymphocytes/100 WBC (Bld) 29.4 % . [facility] MCH Auto (RBC) [Entitic mass ]Ordered By: Loi Wong on 04-16-2022 MCH (RBC) [Entitic mass] 32.0 pg 27.5-35.2 [facility] MCHC Auto (RBC) [Mass/Vol]Or dered By: Loi Wong on 04-16-2022 MCHC (RBC) [Mass/Vol] 34.0 g/dL 32.5-35.6 [facility] MCV Auto (RBC) [Entitic vol] Ordered By: Loi Wong on 04-16-2022 MCV (RBC) [Entitic vol] 94.0 fL 83.5-101 [facility] Monocytes Auto (Bld) [#/Vol] Ordered By: Loi Wong on 04-16-2022 Monocytes (Bld) [#/Vol] 0.6 10*3/uL 0.0-0.8 [facility] Monocytes/100 WBC Auto (Bld) Ordered By: Loi Wong on 04-16-2022 Monocytes/100 WBC (Bld) 7.7 % . [facility] Neutrophils Auto (Bld) [#/Vo l]Ordered By: Loi Wong on 04-16-2022 Neutrophils (Bld) [#/Vol] 4.7 10*3/uL 1.8-7.7 [facility] Neutrophils/100 WBC Auto (Bl d)Ordered By: Loi Wong on 04-16-2022 Neutrophils/100 WBC (Bld) 60.5 % . [facility] No Panel InformationOrdered By: Loi Wong on 04-16-2022 D-Dimer Quantitative (PE/DVT) < 200 ng/mL 0-243 [facility] Comment on above: The reference range [...] conditions. Estimated GFR () > 60 mL/Min [facility] Comment on above: GFR estimated refere nce range: According to KDOQI guidelines, <60 ml/min/1.73m2 is sufficient to diagnose a patient with chronic kidney disease. Pharmacy Creatinine Clearance (Chem 79.33 [facility] Platelet mean volume Auto (B ld) [Entitic vol]Ordered By: Loi Wong on 04-16-2022 Platelet mean volume (Bld) [Entitic vol] 9.7 fL 6.6-10.1 [facility] Platelet poor plasma interna tional normalized ratio (INR) by coagulation assay (relatOrdered By: Loi Wong on 04-16-2022 INR Coag (PPP) [Relative time] 1.1 {INR} [facility] Comment on above: INR Therapeutic Rang [...] 04-16-2022 Platelets (Bld) [#/Vol] 238 10*3/uL 150-450 [facility] RBC Auto (Bld) [#/Vol]Ordere d By: Loi Wong on 04-16-2022 RBC (Bld) [#/Vol] 4.59 10*6/uL 3.90-5.60 [facility] Serum or plasma anion gap de terminationOrdered By: Loi Wong on 04-16-2022 Anion gap [Moles/Vol] 12.4 mmol/L 6.0-15.0 [facility] Serum or plasma calcium paramjit urement (mass/volume)Ordered By: Loi Wogn on 04-16-2022 Calcium [Mass/Vol] 9.0 mg/dL 8.2-10.2 [facility] Serum or plasma chloride robby surement (moles/volume)Ordered By: Loi Wong on 04-16-2022 Chloride [Moles/Vol] 103 mmol/L 95-114 [facility] Serum or plasma creatine kin ase MB (CKMB)/total creatine kinase (CK) ratio by calculaOrdered By: Loi Wong on 04-16-2022 CK.MB Calc [Catalytic fraction] 2.0 % 0.00-2.50 [facility] Serum or plasma creatine kin ase MB measurement (mass/volume)Ordered By: Loi Wong on 04-16-2022 CK.MB [Mass/Vol] 1.4 ng/mL 0.6-6.3 [facility] Serum or plasma glucose paramjit urement (mass/volume)Ordered By: Loi Wong on 04-16-2022 Glucose [Mass/Vol] 88 mg/dL 70-100 [facility] Comment on above: ADA recommended refe rence rangeRandom Glucose Reference Range is dependent on time and content of last meal. Glucose of more than 200 mg/dL in a nonstressed, ambulatory subject supports the diagnosis of Diabetes Mellitus. Serum or plasma potassium me asurement (moles/volume)Ordered By: Loi Wong on 04-16-2022 Potassium [Moles/Vol] 4.3 mmol/L 3.5-5.1 [facility] Serum or plasma sodium measu rement (moles/volume)Ordered By: Loi Wong on 04-16-2022 Sodium [Moles/Vol] 135 mmol/L 136-146 [facility] Serum or plasma total carbon dioxide measurement (moles/volume)Ordered By: Loi Wong on 04-16-2022 CO2 [Moles/Vol] 23.9 mmol/L 22.0-30.0 [facility] Serum or plasma urea nitroge n measurement (mass/volume)Ordered By: Loi Wong on 04-16-2022 Urea nitrogen [Mass/Vol] 12 mg/dL - [facility] Troponin I.cardiac [Mass/vol ume] in Serum or Plasma by High sensitivity methodOrdered By: Loi Wong on 04-16-2022 Troponin I.cardiac High sensitivity method [Mass/Vol] 5 pg/mL 0-20 [facility] CNPNon 03-27-2022 CNPN Telephone (HEMTSA) ----- JENNIFER MELENDEZIAN Fatimah ([id number]) 1960 M [facility] Date Time Provider Department 03/27/22 ASYA GREENE During your visit today, we recorded the following information about you: Asya Greene RN 03/27/2022 12:16 PM Signed Patient got a text over the weekend about an appointment with a [facility] neurosurgeon. He has not seen you since 10/2021. He states st that time you did not see the need for a neurosurgeon as his tumor was too small. Now he all of the sudden has an appointment with this F neurosurgeon and is confused. 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 Yes Pamela Hamjoy, SALON/SPA MANAGER.CREDIT INVESTIGATOR 03/16/2022 2:55 PM Signed Time Frame: Next available Provider: Intra-axial neurosurgeon AND Neuro-Oncology (same day) Referring: Memo Cole MD Please instruct patient to hand carry/ upload images prior to appt Dx: Low grade glioma Patient: Jovani Melendez Address: Jovani Melendez [id number] [place] [address] Per Triage: Jovani Melendez is a 61 year old male that requests evaluation of previously diagnosed possible low grade glioma. Patient expectations: Second opinion Tumor Specifics: Location: brain Previous Evaluations: MRI w/wo contrast (10/05/21): 10/05/2021 MRI Brain [facility] Impression: 1. There is T2 and T2 [...] Treatments: N/A Impression: As above. Pamela Nascimento APRN.CREDIT INVESTIGATOR March 16, 2022 Allergies As of Date: [...] Status:Closed by FLORENTINO ROSALES on 03/16/22 Normal [facility] Digicompanion Quick Testingon 2021 Result Negative [facility] Other Quick Fluon 03-16-2022 FLUAV Ab CF (S) [Titer] Negative [facility] Other FLUBV Ab CF (S) [Titer] Negative [facility] Other MRI Brain w/o + w/on 022 [...] Moderate patchy increased T2 signal within the naldo appears substantially similar to the prior study, [...] by Jillian Morales on 01/18/2022 1413 Normal [facility] [employer]atial Extractor Analysis Cell Count + Differential, C on 11-07-2021 WBC (Bld) [#/Vol] 0.006 10*3/uL above high threshold 0 - 5 [facility] Kathrin Work Phone: Cell Count + Differential, CSF 70 1 [facility] Work Phone: [phone] Cell Count + Differential, CSF 10 % [facility] Work Phone: [phone] Cell Count + Differential, CSF 60 % [...] Phone: [phone] Albumin [Mass/Vol] 4578 mg/dL [phone] [facility]Luis rosurge [facility] Work Phone: [phone] IgG (CSF) [Mass/Vol] 2.2 mg/dL 0.0-6.0 [facility]N eurosurge [facility] Work Phone: [phone] IgG [Mass/Vol] 496 mg/dL below low threshold [phone] [facility] Work Phone: [phone] Comment on above: REFERENCE INTERVAL: Immunoglobulin GAccess complete set of age- and/or gender-specific reference intervals for this test in the [facility] Test Directory ([employer]). IgG clearance/Albumin clearance (S+CSF) [Ratio] 0.56 {ratio} 0.28-0.66 [facility] Work Phone: [phone] IgG synthesis rate Calc (S+CSF) [Mass/Time] 0.5 mg/d <=8.0 [facility] Work Phone: [phone] IgG/Albumin (CSF) [Mass ratio] 0.06 {ratio} below low threshold 0.09-0.25 [facility] Work Phone: [phone] Oligoclonal bands Elph (CSF) [Interp] Negative Negative [facility] Work Phone: [phone] Oligoclonal bands Elph Curtis (CSF) [Interp] See Note [facility] Work Phone: [phone] Comment on above: Isoelectric focusing /immunofixation revealed no oligoclonal bands in either the CSF or the serum. This is considered to be a negative result for oligoclonal bands. Approximately 5 percent of patients with clinically definitive multiple sclerosis will have a negative result.Performed By: [facility] [place] [address] [id number] Director: Paula Middleton MD Albumin (CSF) [Mass/Vol] Canceled [facility] Work Phone: [phone] Albumin [Mass/Vol] Canceled [facility]Luis rosurge Content [facility] Work Phone: [phone] Glucose (CSF) [Mass/Vol] 56 mg/dL 40 - 70 [facility] Content [facility] Work Phone: [phone] IgG (CSF) [Mass/Vol] Canceled MG-N eurosurge [facility] Work Phone: [phone] IgG [Mass/Vol] Canceled [facility]Neurosu rge [facility] Work Phone: [phone] IgG clearance/Albumin clearance (S+CSF) [Ratio] Canceled [facility] Work Phone: [phone] IgG [...] 15 - 45 [facility] Work Phone: [phone] No Panel Informationon 11-07 0 {Bands} 0-1 [facility]surge -[facility] Work Phone: [phone] [facility]-Neurosurge ry-[facility] Work Phone: [phone] Canceled [facility] -[facility] Work Phone: [phone] Path Review, CSFon 2 Path Review, CSF RMaria RREHANA [facility]-Neuro surge ry-[facility] Work Phone: [phone] Comment on above: By her/his signature above, the Pathologist listed as making the final interpretation certifies that she/he has personally reviewed this case. HEMORRHAGIC SPECIMEN, NO MALIGNANT CELLS IDENTIFIED. 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 In [...] He saw Dr. Ba a neurologist in [facility]. He describes his vision as seeing 1-1/2 [...] MG Oral Tablet Vitals Vital Signs Recorded: [id number] 09:38AM Crurelrdntv55.2 F Heart Rate63 Cgykfsrghpw16 Spuvlasx757 Vemufpzeo94 Blood Pressure Cuff SizeAdult Height5 ft 7.13 in Wxaveq647 lb 6 oz BMI Ldxpovaidb74.05 kg/m2 BSA Calculated1.91 Tobacco Usea) Yes Fall Screeninga) No falls within the last year O2 Pilkjztdgf94 Pain Scale7 Physical Exam Constitutional - General appearance: No acute distress, well de (more content not included)... 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 In [...] He saw Dr. Ba a neurologist in [facility]. He describes his vision as seeing 1-1/2 [...] MG Oral Tablet Vitals Vital Signs Recorded: [id number] 09:38AM Szwvrmwkctx37.2 F Heart Rate63 Pwihcyybwdl85 Opozuulq441 Neabpznbx25 Blood Pressure Cuff SizeAdult Height5 ft 7.13 in Myizbg272 lb 6 oz BMI Qfntmripjq48.05 kg/m2 BSA Calculated1.91 Tobacco Usea) Yes Fall Screeninga) No falls within the last year O2 Cjdznzyukj61 Pain Scale7 Ph (more content not included)... Normal [place] COVID + FLU Quick Testingon 06-30-2021 SARS-CoV-2 (COVID-19) RNA JER+probe Ql (Unsp spec) Negative [employer] Other COVID + FLU Quick Testing Negative [employer] Other COVID Quick Testingon 2020 Result Negative [employer] Other Basophils Auto (Bld) [#/Vol] on 09-20-2020 Basophils (Bld) [#/Vol] 0.0 10*3/uL 0.0-0.2 [facility] Basophils/100 WBC Auto (Bld) on 09-20-2020 Basophils/100 WBC (Bld) 0.6 % [facility] Blood hemoglobin measurement (mass/volume)on 09-20-2020 Hemoglobin (Bld) [Mass/Vol] 14.4 g/dL 13.0-17.0 [facility] Blood leukocytes automated c ount (number/volume)on 09-20-2020 WBC (Bld) [#/Vol] 7.4 10*3/uL 4.5-11.0 [facility] Eosinophils Auto (Bld) [#/Vo l]on 09-20-2020 Eosinophils (Bld) [#/Vol] 0.1 10*3/uL 0.0-0.45 [facility] Eosinophils/100 WBC Auto (Bl d)on 09-20-2020 Eosinophils/100 WBC (Bld) 0.9 % [facility] Erythrocyte distribution wid th Auto (RBC) [Ratio]on 09-20-2020 Erythrocyte distribution width (RBC) [Ratio] 14.6 % 12.0-14.8 [facility] Hematocrit Auto (Bld) [Volum e fraction]on 09-20-2020 Hematocrit (Bld) [Volume fraction] 41.7 % 38.8-50.0 [facility] Lymphocytes Auto (Bld) [#/Vo l]on 09-20-2020 Lymphocytes (Bld) [#/Vol] 1.6 10*3/uL 1.00-4.8 [facility] Lymphocytes/100 WBC Auto (Bl d)on 09-20-2020 Lymphocytes/100 WBC (Bld) 21.3 % [facility] MCH Auto (RBC) [Entitic mass ]on 09-20-2020 MCH (RBC) [Entitic mass] 32.4 pg 27.5-35.2 [facility] MCHC Auto (RBC) [Mass/Vol]on 09-20-2020 MCHC (RBC) [Mass/Vol] 34.5 g/dL 32.5-35.6 [facility] MCV Auto (RBC) [Entitic vol] on 09-20-2020 MCV (RBC) [Entitic vol] 93.9 fL 83.5-101 [facility] Monocytes Auto (Bld) [#/Vol] on 09-20-2020 Monocytes (Bld) [#/Vol] 0.6 10*3/uL 0.0-0.8 [facility] Monocytes/100 WBC Auto (Bld) on 09-20-2020 Monocytes/100 WBC (Bld) 8.6 % [facility] Neutrophils Auto (Bld) [#/Vo l]on 09-20-2020 Neutrophils (Bld) [#/Vol] 5.1 10*3/uL 1.8-7.7 [facility] Neutrophils/100 WBC Auto (Bl d)on 09-20-2020 Neutrophils/100 WBC (Bld) 68.6 % [facility] Otheron 09-20-2020 Nucleated RBC/100 WBC (Bld) [Ratio] 0.0 % 0-0.5 [facility] Platelet mean volume Auto (B ld) [Entitic vol]on 09-20-2020 Platelet mean volume (Bld) [Entitic vol] 9.3 fL 6.6-10.1 [facility] Platelets Auto (Bld) [#/Vol] on 09-20-2020 Platelets (Bld) [#/Vol] 182 10*3/uL 150-450 [facility] RBC Auto (Bld) [#/Vol]on RBC (Bld) [#/Vol] 4.44 10*6/uL 3.90-5.60 [facility] Body fluid albumin measureme nt (mass/volume)on 09-13-2020 Albumin (Body fld) [Mass/Vol] 4.3 g/dL 3.2-5.5 [facility] Cholesterol [Mass/volume] in Serum or Plasmaon 09-13-2020 Cholesterol [Mass/Vol] 219 mg/dL 140-200 [facility] Comment on above: Chol less than 200 m g/dl low riskChol 201-239 mg/dl borderline riskChol 240 mg/dl and greater high risk Cholesterol in LDL Calc [Mas s/Vol]on 09-13-2020 Cholesterol in LDL [Mass/Vol] 149 mg/dL 0-100 [facility] Comment on above: LDL ATP III CLASSIFI CATIONLDL less than 100 mg/dL OptimalLDL 100-129 mg/dL Near or above optimalLDL 130-159 mg/dL Borderline highLDL 160-189 mg/dL HighLDL greater than 189 mg/dL Very high Cholesterol in VLDL Calc [Ma ss/Vol]on 09-13-2020 Cholesterol in VLDL [Mass/Vol] 28 mg/dL [facility] Creatinine and Glomerular fi ltration rate.predicted panel (S/P/Bld)on 09-13-2020 Creatinine [Mass/Vol] 0.89 mg/dL 0.64-1.27 [facility] GFR/1.73 sq M.predicted roverto g non-blacks MDRD (S/P/Bld) [Vol rate/Area]on 09-13-2020 GFR/1.73 sq M predicted among non-blacks MDRD (S/P/Bld) [Vol rate/Area] > 60 mL/Min [facility] Globulin Calc (S) [Mass/Vol] on 09-13-2020 Globulin (S) [Mass/Vol] 2.0 g/dL [facility] No Panel Informationon 09-13 Estimated GFR () > 60 mL/Min [facility] Comment on above: GFR estimated refere nce range: According to KDOQI guidelines, <60 ml/min/1.73m2 is sufficient to diagnose a patient with chronic kidney disease. Otheron 09-13-2020 GFR/1.73 sq M.predicted MDRD (S/P/Bld) [Vol rate/Area] > 60 mL/Min [facility] Comment on above: GFR estimated refere nce range: According to KDOQI guidelines, <60 ml/min/1.73m2 is sufficient to diagnose a patient with chronic kidney disease. Pharmacy Creatinine Clearance (Chem N/A [facility] Prostate Specific Antigen Screen 0.480 ng/mL 0.000-4.00 0 [facility] Protein [Mass/volume] in Ser um or Plasmaon 09-13-2020 Protein [Mass/Vol] 6.3 g/dL 6.1-7.9 [facility] SARS-CoV-2 (COVID-19) IgG Ab [Presence] in Serum or Plasma by Immunoassayon 09-13-2020 SARS-CoV-2 (COVID-19) IgG Ab [Presence] in Serum or Plasma by Immunoassay Positive Negative [facility] Comment on above: Results suggest rece nt or prior infection with SARS-CoV-2.Correlation with epidemiologic risk factors and otherclinical and laboratory findings is recommended. Serologicresults should not be used as the sole basis to diagnose orexclude recent SARS-CoV-2 infection. False positive resultsinfrequently occur due to prior infection with other humanCoronaviruses.This assay was performed using the [employer]ison(R)SARS-CoV-2 S1/S2 IgG assay.This assay detects antibodies against SARS-CoV-2 spikeprotein including the receptor binding domain (RBD).Performed at: [id number] [place], [place] [id number] Director: Florencio Wu PhD, Phone: [phone] SARS-CoV-2 (COVID-19) IgG IA Ql Positive Negative [facility] Comment on above: Results suggest rece nt or prior infection with SARS-CoV-2.Correlation with epidemiologic risk factors and otherclinical and laboratory findings is recommended. Serologicresults should not be used as the sole basis to diagnose orexclude recent SARS-CoV-2 infection. False positive resultsinfrequently occur due to prior infection with other humanCoronaviruses.This assay was performed using the [employer] L[employer]ison(R)SARS-CoV-2 S1/S2 IgG assay.This assay detects antibodies against SARS-CoV-2 spikeprotein including the receptor binding domain (RBD).Performed at: [address] [place], [place] [id number] Director: Florencio Wu PhD, Phone: [phone] Serum or plasma alanine mclaughlin otransferase measurement without P-5'-P (enzymatic activion 09-13-2020 ALT No additional P-5'-P [Catalytic activity/Vol] 19 U/L 10-60 [facility] Serum or plasma albumin/glob ulin mass ratioon 09-13-2020 Albumin/Globulin [Mass ratio] 2.2 {ratio} [facility] Serum or plasma alkaline fuentes sphatase measurement (enzymatic activity/volume)on 09-13-2020 ALP [Catalytic activity/Vol] 53 U/L 32-92 [facility] Serum or plasma aspartate am inotransferase measurement (enzymatic activity/volume)on 09-13-2020 AST [Catalytic activity/Vol] 22 U/L 10-42 [facility] Serum or plasma calcium paramjit urement (mass/volume)on 09-13-2020 Calcium [Mass/Vol] 9.1 mg/dL 8.2-10.2 [facility] Serum or plasma chloride robby surement (moles/volume)on 09-13-2020 Chloride [Moles/Vol] 105 mmol/L 95-114 [facility] Serum or plasma glucose paramjit urement (mass/volume)on 09-13-2020 Glucose [Mass/Vol] 97 mg/dL 70-100 [facility] Comment on above: ADA recommended refe rence rangeRandom Glucose Reference Range is dependent on time and content of last meal. Glucose of more than 200 mg/dL in a nonstressed, ambulatory subject supports the diagnosis of Diabetes Mellitus. Serum or plasma high density lipoprotein (HDL) cholesterol measurementon 09-13-2020 Cholesterol in HDL [Mass/Vol] 41 mg/dL [facility] Comment on above: HDL CHOL ATP-III CLA SSIFICATION Cardiovascular RiskHDL > or equal to 60 mg/dL LOWHDL < 40 mg/dL HIGH Serum or plasma potassium me asurement (moles/volume)on 09-13-2020 Potassium [Moles/Vol] 4.2 mmol/L 3.5-5.1 [facility] Serum or plasma sodium measu rement (moles/volume)on 09-13-2020 Sodium [Moles/Vol] 135 mmol/L 136-146 [facility] Serum or plasma thyroid stim ulating hormone (TSH) measurement by high sensitivity meton 09-13-2020 TSH Qn 1.66 u[iU]/mL 0.45-5.33 [facility] Serum or plasma total biliru bin measurement (mass/volume)on 09-13-2020 Bilirubin [Mass/Vol] 0.9 mg/dL 0.3-1.2 [facility] Serum or plasma total carbon dioxide measurement (moles/volume)on 09-13-2020 CO2 [Moles/Vol] 22.5 mmol/L 22.0-30.0 [facility] Serum or plasma total choles terol/high density lipoprotein (HDL) cholesterol mass gia 09-13-2020 Cholesterol.total/Chol esterol in HDL [Mass ratio] 5.3 {ratio} [facility] Serum or plasma urea nitroge n measurement (mass/volume)on 09-13-2020 Urea nitrogen [Mass/Vol] 12 mg/dL 9-23 [facility] TSH DL <= 0.005 mIU/L Qnon 0 09-13-2020 TSH Qn 1.66 m[IU]/L 0.45-5.33 [facility] Triglyceride [Mass/volume] i n Serum or Plasmaon 09-13-2020 Triglyceride [Mass/Vol] 144 mg/dL 35-149 [facility] Comment on above: TRIG ATP III [...] eye. Coleen Grajeda M.D. aek Dictated: 04/14/2019 #[id number] Typed 04/14/2019 #[id number] cc: Coleen Grajeda M.D. [facility] Comment on above: Result Comment: Elec [...] and inferior fornices of the eye. A Trust[employer] manometer was set on the eye at [...] condition. Coleen Grajeda M.D. gls Dictated: 04/14/2019 #[id number] Typed: 04/15/2019 #[id number] cc: Coleen Grajeda M.D. [facility] Comment on above: Result Comment: Elec tronically Signed By: Coleen Grajeda MD.br\Date and Time Signed: 04/18/19 09:54 EDT Coding Summary.on 04-15-2019 Coding Summary. 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 Name: JOVANI MELENDEZ/Sex: 1960 Male Med Rec #: [id number] Physician: Coleen Grajeda MD Financial #: [id number] Pt. Type: A Room/Bed: [place] [address] Admit/Disch: 04/14/19 12:59:00 - 04/14/19 16:00:00 Institution: [...] Performed Surgeon - Primary Scrub - Primary Suede Brusher - Primary Time In 04/14/19 14:55:00 04/14/19 14:55:00 04/14/19 15:00:00 Time Out 04/14/19 15:17:00 04/14/19 15:17:00 04/14/19 15:17:00 Procedure CATARACT EXTRACTION W/ CATARACT EXTRACTION W/ CATARACT EXTRACTION W/ INTRAOCULAR LENS(Left) INTRAOCULAR LENS(Left) INTRAOCULAR LENS(Left) Comments Last Modified By: Sachi RN, Johnathon Karimi RN, Johnathon Karimi RN, Johnathon Mullins 04/14/19 15:16:27 04/14/19 15:16:27 04/14/19 15:16:27 Entry 4 Entry 5 Case Attendee Omar VERNON, Pauly GOODEN, RN, Tierra Role Performed Suede Brusher - Primary Suede Brusher - Relief Time In 04/14/19 14:55:00 04/14/19 14:55:00 Time Out 04/14/19 15:17:00 04/14/19 15:00:00 Procedure CATARACT EXTRACTION W/ CATARACT EXTRACTION W/ INTRAOCULAR LENS(Left) INTRAOCULAR LENS(Left) Comments Last Modified By: Sachi VERNON, Johnathon Karimi RN, Johnathon Mullins 04/14/19 15:16:27 04/14/19 15:16:27 Perioperative Protocols FT [...] Last Modified By: Johnathon Karimi RN 04/14/19 15:02:01 Post-Care Text: The patient [...] Unable to Visualize, Outcomes Met? Yes Warm, [place], Dry Last Modified By: Johnathon Karimi RN 04/14/19 15:02:52 Post-Care Text: The patient is free from signs and symptoms of injury caused by extraneous objects General Comments: pt partially clothed, unable to assess all of skin/ ktinker rn Patient Positioning FT Pre-Care Text: Identifies physical [...] Last Modified By: Johnathon Karimi RN, RN, Kail M Tinker RN, Kail M 04/14/19 15:03:31 04/14/19 15:03:31 04/14/19 15:03:31 Post-Care [...] Outcomes Met? Yes Yes Last Modified By: Johnathon Karimi RN, RN, Kail M 04/14/19 15:04:54 04/14/19 15:04:54 Post-Care Text: The [...] RN Patient Status Stable Skin. Condition Warm, [place], Dry Description unchanged Airway Maintenance Oxygen in Use? No Outcomes Met? Yes Last Modified By: Johnathon Karimi RN 04/14/19 15:07:48 Post-Care Text: The patient is free from signs and symptoms of injury related to transfer/transport General Comments: asu called, transported to asu by or transporter/ ant vernon Dressing/Packing FT Pre-Care Text: Administers care to [...] safely administered during the perioperative period For [employer] please see scanned medication reconcilliation form for medications used at the field during the procedure. 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[employer] Catalog ?# [id number] 21.0[F] Expiration Date 10/16/23 Unique Device [id number] Identifier (BERNARD) Usage Data FT Implant Site [...] 15:16 Asya Alves CST 04/15/19 14:44 Normal [facility] Inpatient Patient Summaryon 04-14-2019 Inpatient Patient Summary [facility] Clinical Discharge Instructions PERSON INFORMATION Name: MELENDEZJENNIFERJOVANI C PHYSICIANS Admitting Physician: Coleen Grajeda MD Attending Physician: Coleen Grajeda MD PCP: JILLIAN BARONE DO Discharge Diagnosis: Cataract Comment: PATIENT EDUCATION INFORMATION Instructions: Medication Leaflets: Follow up: With: Address: When: Coleen Mcgee [facility] [address], [place] [address] [facility] (1) Comments: Call physician if symptoms worsen Keep scheduled appointment MEDICATION LIST Comment: Normal [facility] Main OR PACU II Recordon Main OR PACU II Record PACU Phase II Doc ument Type FT Summary Primary Physician: Coleen Grajeda MD Finalized Date/Time: 04/14/19 17:54:42 Pt. Name: JOVANI MELENDEZ D.O.B./Sex: 1960 Male Med Rec #: [id number] Physician: Coleen Grajeda MD Financial #: [id number] Pt. Type: A Room/Bed: [place] [address] Admit/Disch: 04/14/19 12:59:23 - Institution: Case Times [...] By: Lizeth Rush RN 04/14/19 17:54 Normal [facility] Main OR Preoperative Recordo n 04-14-2019 Main OR Preoperative Record PreOp Document Type FT Summary Primary Physician: Coleen Grajeda MD Finalized Date/Time: 04/14/19 15:14:03 Pt. Name: JOVANI MELENDEZ/Sex: 1960 Male Med Rec #: [id number] Physician: Cloeen Grajeda MD Financial #: [id number] Pt. Type: A Room/Bed: [facility] Admit/Disch: 04/14/19 12:59:23 - Institution: Case Times [...] By: Johnathon Karimi RN 04/14/19 15:14 Normal [facility] Patient Education - Texton 1 Patient Education - Text Normal [facility] Vital Signs Date Time Vital Sign Value Performing Clinician Facility 08-02-2023 13:11-0500 Body height 172.72 cm DO Griselda TapMes Work Phone: [facility] 08-02-2023 13:11-0500 Body mass index (BMI) [Ratio] 27.9 kg/m2 DO Griselda Kuns Work Phone: [facility] 08-02-2023 13:11-0500 Body weight 83.46 kg DO Griselda Kuns Work Phone: [facility] 08-02-2023 13:11-0500 Diastolic blood pressure 70 mm[Hg] DO Griselda Kuns Work Phone: [facility] 08-02-2023 13:11-0500 Heart rate 68 /min DO Griselda Kuns Work Phone: [facility] 08-02-2023 13:11-0500 Respiratory rate 16 /min DO Griselda Kuns Work Phone: [facility] 08-02-2023 13:11-0500 SaO2% (BldA) [Mass fraction] 97 % DO Griselda Kuns Work Phone: [facility] 08-02-2023 13:11-0500 Systolic blood pressure 130 mm[Hg] DO Griselda Kuns Work Phone: [facility] 07-02-2023 09:30-0500 Body height 172.72 cm Griselda[employer]Go[employer] Other [facility] 07-02-2023 09:30-0500 Body mass index (BMI) [Ratio] 28.28 kg/m2 Griselda Kuns Other [employer] Other 07-02-2023 09:30-0500 Body weight 84.37 kg Griselda Kuns Other [employer] Other 07-02-2023 09:30-0500 Body weight 84.36 kg DO Griselda Kuns Work Phone: [facility] 07-02-2023 09:30-0500 Diastolic blood pressure 92 mm[Hg] Griselda Kuns Other [facility] 07-02-2023 09:30-0500 Respiratory rate 16 /min Griselda Kuns Other [place] [employer] Other 07-02-2023 09:30-0500 SaO2% (BldA) [Mass fraction] 97 % Griselda Kuns Other [facility] [facility] [employer] Other 07-02-2023 09:30-0500 Systolic blood pressure 160 mm[Hg] Griselda Kuns Other [facility] 05-31-2023 13:45-0500 Body height 172.72 cm Griselda Kuns Other [facility] 05-31-2023 13:45-0500 Body mass index (BMI) [Ratio] 27.37 kg/m2 Griselda Kuns Other [employer] Other 05-31-2023 13:45-0500 Body weight 81.65 kg Griselda Kuns Other [employer] Other 05-31-2023 13:45-0500 Body weight 81.64 kg DO Griselda Kuns Work Phone: [facility] 05-31-2023 13:45-0500 Diastolic blood pressure 80 mm[Hg] Griselda Krause Other [facility] 05-31-2023 13:45-0500 Respiratory rate 18 /min Griselda Krause Other [facility] [employer] Other 05-31-2023 13:45-0500 SaO2% (BldA) [Mass fraction] 98 % Griselda Krause Other [facility] [employer] Other 05-31-2023 13:45-0500 Systolic blood pressure 120 mm[Hg] Griselda Krause Other [facility] 05-30-2023 11:15-0500 Body height 172.72 cm Ruddy Harvey Other [facility] 05-30-2023 11:15-0500 Body mass index (BMI) [Ratio] 27.52 kg/m2 Ruddy Harvey Other [facility] [employer] Other 05-30-2023 11:15-0500 Body temperature 97.8 [degF] Ruddy Harvey Other [facility] [employer] Other 05-30-2023 11:15-0500 Body weight 82.1 kg Ruddy Harvey Other [facility] 05-30-2023 11:15-0500 SaO2% (BldA) [Mass fraction] 98 % Ruddy Harvey Other [facility] [employer] Other 05-15-2023 13:20-0500 Body height 172.72 cm Lilliam Cason Other [facility] 05-15-2023 13:20-0500 Body mass index (BMI) [Ratio] 27.52 kg/m2 Lilliam Cason Other [employer] Other 05-15-2023 13:20-0500 Body weight 82.1 kg Lilliam Cason Other [facility] 05-15-2023 13:20-0500 Diastolic blood pressure 84 mm[Hg] Lilliam Cason Other [facility] 05-15-2023 13:20-0500 Respiratory rate 18 /min Lilliam Cason Other [employer] Other 05-15-2023 13:20-0500 SaO2% (BldA) [Mass fraction] 98 % Lilliam Cason Other [employer] Other 05-15-2023 13:20-0500 Systolic blood pressure 142 mm[Hg] Lilliam Cason Other [facility] 05-07-2023 13:16-0500 Diastolic blood pressure 78 mm[Hg] DO Griselda TapMes Work Phone: [facility] 05-07-2023 13:16-0500 Heart rate 75 /min DO Griselda Kuns Work Phone: [facility] 05-07-2023 13:16-0500 Respiratory rate 16 /min DO Griselda Kuns Work Phone: [facility] 05-07-2023 13:16-0500 SaO2% (BldA) [Mass fraction] 96 % DO Griselda Kuns Work Phone: [facility] 05-07-2023 13:16-0500 Systolic blood pressure 135 mm[Hg] DO Griselda Kuns Work Phone: [facility] 05-07-2023 10:30-0500 Inhaled oxygen flow rate 3 L/min DO Griselda Kuns Work Phone: [facility] 05-07-2023 08:29-0500 Body height 172.72 cm DO [employer] Work Phone: [facility] 05-07-2023 08:29-0500 Body weight 79.37 kg DO Griselda TapMes Work Phone: [facility] 05-03-2023 09:15-0500 Body height 172.72 cm Ruddy Harvey Other [employer] Other 05-03-2023 09:15-0500 Body mass index (BMI) [Ratio] 27.06 kg/m2 Ruddy Harvey Other [employer] Other 05-03-2023 09:15-0500 Body temperature 97.8 [degF] Ruddy Harvey Other [employer] Other 05-03-2023 09:15-0500 Body weight 80.74 kg Ruddy Harvey Other [employer] Other 05-03-2023 09:15-0500 Diastolic blood pressure 78 mm[Hg] Ruddy Harvey Other [employer] Other 05-03-2023 09:15-0500 SaO2% (BldA) [Mass fraction] 97 % Ruddy Harvey Other [employer] Other 05-03-2023 09:15-0500 Systolic blood pressure 146 mm[Hg] Ruddy Harvey Other [employer] Other 05-01-2023 10:30-0500 Body height 172.72 cm [employer] Other [employer] Other 05-01-2023 10:30-0500 Body mass index (BMI) [Ratio] 27.06 kg/m2 Griselda Kuns Other [employer] Other 05-01-2023 10:30-0500 Body weight 80.74 kg Griselda Kuns Other [employer] Other 05-01-2023 10:30-0500 Diastolic blood pressure 80 mm[Hg] Griselda Kuns Other [employer] Other 05-01-2023 10:30-0500 Respiratory rate 18 /min Griselda Kuns Other [employer] Other 05-01-2023 10:30-0500 SaO2% (BldA) [Mass fraction] 96 % Griselda Kuns Other [employer] Other 05-01-2023 10:30-0500 Systolic blood pressure 144 mm[Hg] Griselda Kuns Other [employer] Other 04-11-2023 10:40-0400 Body height 172.72 cm Lilliam Kamla Other [employer] Other 04-11-2023 10:40-0400 Body mass index (BMI) [Ratio] 26.67 kg/m2 Lilliam Kamla Other [employer] Other 04-11-2023 10:40-0400 Body weight 79.56 kg Lilliam Kamla Other [employer] Other 04-11-2023 10:40-0400 Diastolic blood pressure 80 mm[Hg] Lilliam Kamla Other [employer] Other 04-11-2023 10:40-0400 SaO2% (BldA) [Mass fraction] 96 % Lilliam Cason Other [employer] Other 04-11-2023 10:40-0400 Systolic blood pressure 148 mm[Hg] Lilliam Cason Other [facility] [employer] Other 03-21-2023 02:42-0400 Diastolic blood pressure 98 mm[Hg] DO Griselda TapMes Work Phone: [facility] 03-21-2023 02:42-0400 Heart rate 72 /min DO Griselda Kuns Work Phone: [facility] 03-21-2023 02:42-0400 Respiratory rate 16 /min DO Griselda TapMes Work Phone: [facility] 03-21-2023 02:42-0400 SaO2% (BldA) [Mass fraction] 97 % DO Griselda Kuns Work Phone: [facility] 03-21-2023 02:42-0400 Systolic blood pressure 170 mm[Hg] DO Griselda Kuns Work Phone: [facility] 03-21-2023 00:12-0400 Body height 172.72 cm DO Griselda Kuns Work Phone: [facility] 03-21-2023 00:12-0400 Body temperature 98 [degF] DO Griselda Kuns Work Phone: [facility] 03-21-2023 00:12-0400 Body weight 79.37 kg DO Griselda Kuns Work Phone: [facility] 03-15-2023 10:30-0400 Body height 172.72 cm GriseldaYouGoDo Other [facility] [employer] Other 03-15-2023 10:30-0400 Body mass index (BMI) [Ratio] 26.76 kg/m2 Griselda Kuns Other [employer] Other 03-15-2023 10:30-0400 Body weight 79.83 kg Griselda Kuns Other [employer] Other 03-15-2023 10:30-0400 Diastolic blood pressure 86 mm[Hg] Griselda Kuns Other [employer] Other 03-15-2023 10:30-0400 Respiratory rate 16 /min Griselda Kuns Other [employer] Other 03-15-2023 10:30-0400 SaO2% (BldA) [Mass fraction] 97 % Griselda Kuns Other [employer] Other 03-15-2023 10:30-0400 Systolic blood pressure 174 mm[Hg] Griselda Kuns Other [employer] Other 03-08-2023 10:00-0400 Body height 172.72 cm Griselda Kuns Other [employer] Other 03-08-2023 10:00-0400 Body mass index (BMI) [Ratio] 27.18 kg/m2 Griselda Kuns Other [employer] Other 03-08-2023 10:00-0400 Body weight 81.1 kg Griselda Kuns Other [employer] Other 03-08-2023 10:00-0400 Diastolic blood pressure 82 mm[Hg] Griselda Kuns Other [employer] Other 03-08-2023 10:00-0400 Respiratory rate 16 /min Griselda Kuns Other [facility] [employer] Other 03-08-2023 10:00-0400 SaO2% (BldA) [Mass fraction] 96 % Griselda Kuns Other [facility] [employer] Other 03-08-2023 10:00-0400 Systolic blood pressure 118 mm[Hg] Griselda Kuns Other [facility] [employer] Other 02-26-2023 14:13-0400 Body height 172.72 cm DO Griselda Kuns Work Phone: [facility] 02-26-2023 14:13-0400 Body temperature 98 [degF] DO Griselda Kuns Work Phone: [facility] 02-26-2023 14:13-0400 Body weight 78.6 kg DO Griselda Kuns Work Phone: [facility] 02-26-2023 14:13-0400 Diastolic blood pressure 77 mm[Hg] DO Griselda Kuns Work Phone: [facility] 02-26-2023 14:13-0400 Heart rate 56 /min DO Griselda Kuns Work Phone: [facility] 02-26-2023 14:13-0400 Respiratory rate 18 /min DO Griselda Kuns Work Phone: [facility] 02-26-2023 14:13-0400 SaO2% (BldA) [Mass fraction] 96 % DO Griselda Kuns Work Phone: [facility] 02-26-2023 14:13-0400 Systolic blood pressure 142 mm[Hg] DO Griselda Kuns Work Phone: [facility] 12-05-2022 10:15-0400 Body height 172.72 cm Griseldakeith Mendezgideon Other [employer] Other 12-05-2022 10:15-0400 Body mass index (BMI) [Ratio] 25.85 kg/m2 Griseldakeith Mendezs Other [employer] Other 12-05-2022 10:15-0400 Body weight 77.11 kg Griseldakeith Mendezs Other [employer] Other 12-05-2022 10:15-0400 Diastolic blood pressure 80 mm[Hg] Griseldakeith Mendezs Other [employer] Other 12-05-2022 10:15-0400 Respiratory rate 16 /min Griselda Mendezs Other [employer] Other 12-05-2022 10:15-0400 SaO2% (BldA) [Mass fraction] 96 % Griselda Krause Other [employer] Other 12-05-2022 10:15-0400 Systolic blood pressure 140 mm[Hg] Griseldakeith Mendezs Other [employer] Other 09-13-2022 10:57-0400 Body height 170.6 cm Kelton Perez PA-C Work Phone: [facility] 09-13-2022 10:57-0400 Body temperature 97.39 [degF] Kelton SAAVEDRA-Fatimah Work Phone: [facility] 09-13-2022 10:57-0400 Body weight 77.34 kg Kelton SAAVEDRA-C Work Phone: [facility] 09-13-2022 10:57-0400 Diastolic blood pressure 61 mm[Hg] Kelton Jakubek PA-C Work Phone: [facility] 09-13-2022 10:57-0400 Heart rate 70 /min Kelton Perez PA-C Work Phone: [facility] 09-13-2022 10:57-0400 Respiratory rate 18 /min Kelton Perez PA-C Work Phone: [facility] 09-13-2022 10:57-0400 SaO2% (BldA) [Mass fraction] 100 % Kelton Perez PA-C Work Phone: [facility] 09-13-2022 10:57-0400 Systolic blood pressure 133 mm[Hg] Kelton Perez PA-C Work Phone: [facility] 08-31-2022 11:15-0400 Body height 172.72 cm [employer] Other [employer] Other 08-31-2022 11:15-0400 Body mass index (BMI) [Ratio] 26.79 kg/m2 [employer] Other [employer] Other 08-31-2022 11:15-0400 Body weight 79.92 kg GriseldaYouGoDo Other [employer] Other 08-31-2022 11:15-0400 Diastolic blood pressure 78 mm[Hg] GriseldaYouGoDo Other [employer] Other 08-31-2022 11:15-0400 Respiratory rate 16 /min GriseldaYouGoDo Other [employer] Other 08-31-2022 11:15-0400 SaO2% (BldA) [Mass fraction] 98 % [employer] Other [employer] Other 08-31-2022 11:15-0400 Systolic blood pressure 138 mm[Hg] Griselda Kuns Other [employer] Other 08-01-2022 10:30-0500 Body height 172.72 cm Griselda Kuns Other [employer] Other 08-01-2022 10:30-0500 Body mass index (BMI) [Ratio] 27.27 kg/m2 Griselda Kuns Other [employer] Other 08-01-2022 10:30-0500 Body weight 81.38 kg Griselda Kuns Other [employer] Other 08-01-2022 10:30-0500 Diastolic blood pressure 82 mm[Hg] Griselda Kuns Other [employer] Other 08-01-2022 10:30-0500 Respiratory rate 16 /min Griselda Kuns Other [employer] Other 08-01-2022 10:30-0500 SaO2% (BldA) [Mass fraction] 99 % Griselda Kuns Other [employer] Other 08-01-2022 10:30-0500 Systolic blood pressure 146 mm[Hg] Griselda Kuns Other [employer] Other 07-17-2022 09:45-0500 Diastolic blood pressure 98 mm[Hg] DO Griselda Kuns Work Phone: [facility] 07-17-2022 09:45-0500 Heart rate 69 /min DO Griselda Kuns Work Phone: [facility] 07-17-2022 09:45-0500 Respiratory rate 16 /min DO Griselda Kuns Work Phone: [facility] 07-17-2022 09:45-0500 SaO2% (BldA) [Mass fraction] 99 % DO Griselda Kuns Work Phone: [facility] 07-17-2022 09:45-0500 Systolic blood pressure 144 mm[Hg] DO Griselda Kuns Work Phone: [facility] 07-17-2022 07:58-0500 Body height 172.72 cm DO Griselda Kuns Work Phone: [facility] 07-17-2022 07:58-0500 Body weight 79.37 kg DO Griselda Kuns Work Phone: [facility] 06-28-2022 10:20-0500 Body height 172.72 cm Trish Blades Other [employer] Other 06-28-2022 10:20-0500 Body mass index (BMI) [Ratio] 26.67 kg/m2 Trish Blades Other [employer] Other 06-28-2022 10:20-0500 Body weight 79.56 kg Trish Blades Other [employer] Other 06-28-2022 10:20-0500 Diastolic blood pressure 80 mm[Hg] Trish Blades Other [employer] Other 06-28-2022 10:20-0500 Systolic blood pressure 140 mm[Hg] Trish Blades Other [employer] Other 05-26-2022 13:30-0500 Body height 172.72 cm Griselda TapMes Other [employer] Other 05-26-2022 13:30-0500 Body mass index (BMI) [Ratio] 26.7 kg/m2 Griselda Kuns Other [employer] Other 05-26-2022 13:30-0500 Body weight 79.65 kg Griselda Kuns Other [employer] Other 05-26-2022 13:30-0500 Diastolic blood pressure 82 mm[Hg] Griselda Kuns Other [employer] Other 05-26-2022 13:30-0500 Respiratory rate 18 /min Griselda Kuns Other [employer] Other 05-26-2022 13:30-0500 SaO2% (BldA) [Mass fraction] 98 % Griselda Kuns Other [employer] Other 05-26-2022 13:30-0500 Systolic blood pressure 144 mm[Hg] Griselda Kuns Other [employer] Other 04-17-2022 00:30-0400 Diastolic blood pressure 64 mm[Hg] DO Griselda Kuns Work Phone: [facility] 04-17-2022 00:30-0400 Heart rate 78 /min DO Griselda Kuns Work Phone: [facility] 04-17-2022 00:30-0400 Respiratory rate 16 /min DO Griselda Kuns Work Phone: [facility] 04-17-2022 00:30-0400 SaO2% (BldA) [Mass fraction] 97 % DO Griselda Kuns Work Phone: [facility] 04-17-2022 00:30-0400 Systolic blood pressure 135 mm[Hg] DO Griselda Kuns Work Phone: [facility] 04-16-2022 19:45-0400 Body height 172.72 cm DO Griselda Kuns Work Phone: [facility] 04-16-2022 19:45-0400 Body temperature 98.1 [degF] DO Griselda Kuns Work Phone: [facility] 04-16-2022 19:45-0400 Body weight 78 kg DO Griselda Kuns Work Phone: [facility] 04-06-2022 16:31-0400 Body height 172.72 cm DO Griselda Kuns Work Phone: [facility] 04-06-2022 16:31-0400 Body temperature 98.1 [degF] DO Griselda Kuns Work Phone: [facility] 04-06-2022 16:31-0400 Body weight 79.37 kg DO Griselda Kuns Work Phone: [facility] 04-06-2022 16:31-0400 Diastolic blood pressure 108 mm[Hg] DO Griselda Kuns Work Phone: [facility] 04-06-2022 16:31-0400 Heart rate 95 /min DO Griselda Kuns Work Phone: [facility] 04-06-2022 16:31-0400 Respiratory rate 19 /min DO Griselda Kuns Work Phone: [facility] 04-06-2022 16:31-0400 SaO2% (BldA) [Mass fraction] 97 % DO Griselda Kuns Work Phone: [facility] 04-06-2022 16:31-0400 Systolic blood pressure 138 mm[Hg] DO Griselda Kuns Work Phone: [facility] 03-16-2022 13:30-0400 Body height 172.72 cm Griselda Kuns Other [place] [employer] Other 03-16-2022 13:30-0400 Body mass index (BMI) [Ratio] 26.91 kg/m2 Griselda Kuns Other [employer] Other 03-16-2022 13:30-0400 Body weight 80.29 kg Griselda Kuns Other [employer] Other 03-16-2022 13:30-0400 Diastolic blood pressure 80 mm[Hg] Griselda Kuns Other [employer] Other 03-16-2022 13:30-0400 Respiratory rate 16 /min Griselda Kuns Other [employer] Other 03-16-2022 13:30-0400 SaO2% (BldA) [Mass fraction] 97 % Griselda Kuns Other [employer] Other 03-16-2022 13:30-0400 Systolic blood pressure 140 mm[Hg] Griselda Kuns Other [employer] Other 01-30-2022 12:00-0400 Body height 172.72 cm Griselda Kuns Other [employer] Other 01-30-2022 12:00-0400 Body mass index (BMI) [Ratio] 26.3 kg/m2 Griselda Kuns Other [employer] Other 01-30-2022 12:00-0400 Body weight 78.47 kg Griselda Kuns Other [employer] Other 01-30-2022 12:00-0400 Diastolic blood pressure 82 mm[Hg] Griselda Kuns Other [employer] Other 01-30-2022 12:00-0400 Respiratory rate 16 /min Griselda Kuns Other [employer] Other 01-30-2022 12:00-0400 SaO2% (BldA) [Mass fraction] 99 % Griselda Kuns Other [employer] Other 01-30-2022 12:00-0400 Systolic blood pressure 146 mm[Hg] Griselda Kuns Other [employer] Other 12-26-2021 11:00-0400 Body height 172.72 cm Griselda Kuns Other [employer] Other 12-26-2021 11:00-0400 Body mass index (BMI) [Ratio] 26.61 kg/m2 Griselda Kuns Other [employer] Other 12-26-2021 11:00-0400 Body weight 79.38 kg Griselda Kuns Other [employer] Other 12-26-2021 11:00-0400 Diastolic blood pressure 80 mm[Hg] Griselda Kuns Other [employer] Other 12-26-2021 11:00-0400 Respiratory rate 16 /min Griselda Kuns Other [employer] Other 12-26-2021 11:00-0400 SaO2% (BldA) [Mass fraction] 96 % Griselda Kuns Other [employer] Other 12-26-2021 11:00-0400 Systolic blood pressure 166 mm[Hg] Griselda Kuns Other [employer] Other 12-05-2021 10:15-0400 Body height 172.72 cm Griselda Kuns Other [employer] Other 12-05-2021 10:15-0400 Body mass index (BMI) [Ratio] 269.71 kg/m2 Griselda Kuns Other [employer] Other 12-05-2021 10:15-0400 Body weight 804.69 kg Griselda Kuns Other [employer] Other 12-05-2021 10:15-0400 Diastolic blood pressure 72 mm[Hg] Griselda Kuns Other [employer] Other 12-05-2021 10:15-0400 Respiratory rate 18 /min Griselda Kuns Other [employer] Other 12-05-2021 10:15-0400 SaO2% (BldA) [Mass fraction] 99 % Griselda Kuns Other [employer] Other 12-05-2021 10:15-0400 Systolic blood pressure 130 mm[Hg] Griselda Kuns Other [employer] Other 11-08-2021 11:15-0400 Body height 172.72 cm Griselda Kuns Other [employer] Other 11-08-2021 11:15-0400 Body mass index (BMI) [Ratio] 27.06 kg/m2 Griselda Kuns Other [employer] Other 11-08-2021 11:15-0400 Body weight 80.74 kg Griselda Kuns Other [place] [employer] Other 11-08-2021 11:15-0400 Diastolic blood pressure 80 mm[Hg] Griselda Krause Other [employer] Other 11-08-2021 11:15-0400 Respiratory rate 16 /min Griseldakeith Krause Other [employer] Other 11-08-2021 11:15-0400 SaO2% (BldA) [Mass fraction] 97 % Griselda Krause Other [employer] Other 11-08-2021 11:15-0400 Systolic blood pressure 128 mm[Hg] Griselda Krause Other [facility] [employer] Other 11-03-2021 09:38-0400 Body height 170.51 cm Griselda Driver Nelida Work Phone: [facility] Work Phone: 11-03-2021 09:38-0400 Body mass index (BMI) [Ratio] 27.05 kg/m2 Griselda Driver Nelida Work Phone: [facility] Work Phone: 11-03-2021 09:38-0400 Body surface area Derived from formula 1.91 m2 Griselda Driver Nelida Work Phone: [facility] Work Phone: 11-03-2021 09:38-0400 Body temperature 98.2 [degF] Griselda Mendezgideon Work Phone: [facility] Work Phone: 11-03-2021 09:38-0400 Body weight 78.65 kg Griselda Krause Work Phone: [facility] Work Phone: 11-03-2021 09:38-0400 Diastolic blood pressure 67 mm[Hg] Griselda R Andreas Work Phone: [facility] Work Phone: 11-03-2021 09:38-0400 Heart rate 63 /min Griselda R Andreas Work Phone: [facility] Work Phone: 11-03-2021 09:38-0400 Respiratory rate 16 /min Griselda R Kuns Work Phone: [facility] Work Phone: 11-03-2021 09:38-0400 SaO2% (BldA) [Mass fraction] 99 % Griselda R Andreas Work Phone: [facility] Work Phone: 11-03-2021 09:38-0400 Systolic blood pressure 147 mm[Hg] Griselda R Andreas Work Phone: [facility] Work Phone: 11-03-2021 09:38-0400 7 1 Griselda R Andreas Work Phone: [facility] Work Phone: Comment on above: [employer] 11-01-2021 13:30-0400 Body height 172.72 cm Griselda Andreagideon Other [employer] Other 11-01-2021 13:30-0400 Body mass index (BMI) [Ratio] 26.61 kg/m2 Griselda Andreas Other [employer] Other 11-01-2021 13:30-0400 Body weight 79.38 kg Griselda Mendez9Flava Other [employer] Other 11-01-2021 13:30-0400 Diastolic blood pressure 78 mm[Hg] Griseldakeith Mendezs Other [employer] Other 11-01-2021 13:30-0400 Respiratory rate 18 /min Griselda Mendezs Other [employer] Other 11-01-2021 13:30-0400 SaO2% (BldA) [Mass fraction] 99 % Rgiseldakeith Krause Other [employer] Other 11-01-2021 13:30-0400 Systolic blood pressure 140 mm[Hg] Griselda Mendezs Other [employer] Other 10-24-2021 09:45-0400 Body height 172.72 cm Sheng Fredxavier Other [employer] Other 10-24-2021 09:45-0400 Body mass index (BMI) [Ratio] 26.76 kg/m2 Sheng Schneider Other [employer] Other 10-24-2021 09:45-0400 Body weight 79.83 kg Sheng Schneider Other [employer] Other 10-13-2021 09:50-0400 Body height 172 cm Memo Cole MD Work Phone: [facility] 10-13-2021 09:50-0400 Body temperature 97.5 [degF] Memo Cole MD Work Phone: [facility] 10-13-2021 09:50-0400 Body weight 81.28 kg Memo Cole MD Work Phone: [facility] 10-13-2021 09:50-0400 Diastolic blood pressure 77 mm[Hg] Memo Cole MD Work Phone: [facility] 10-13-2021 09:50-0400 Heart rate 70 /min Memo Cole MD Work Phone: [facility] 10-13-2021 09:50-0400 Respiratory rate 16 /min Memo Cole MD Work Phone: [facility] 10-13-2021 09:50-0400 SaO2% (BldA) [Mass fraction] 99 % Memo Cole MD Work Phone: [facility] 10-13-2021 09:50-0400 Systolic blood pressure 152 mm[Hg] Memo Cole MD Work Phone: [facility] 09-19-2021 10:45-0400 Body height 172.72 cm Griselda TapMegideon Other [employer] Other 09-19-2021 10:45-0400 Body mass index (BMI) [Ratio] 26.15 kg/m2 [employer] Other [employer] Other 09-19-2021 10:45-0400 Body weight 78.02 kg Griselda TapMegideon Other [employer] Other 09-19-2021 10:45-0400 Diastolic blood pressure 80 mm[Hg] Griselda TapMes Other [employer] Other 09-19-2021 10:45-0400 Respiratory rate 18 /min [employer] Other [employer] Other 09-19-2021 10:45-0400 SaO2% (BldA) [Mass fraction] 99 % [employer] Other [employer] Other 09-19-2021 10:45-0400 Systolic blood pressure 140 mm[Hg] Griselda Kuns Other [employer] Other 06-30-2021 13:30-0500 Body height 172.72 cm Griselda Kuns Other [employer] Other 04-14-2021 08:45-0400 Body height 172.72 cm Griselda Kuns Other [employer] Other 04-14-2021 08:45-0400 Body mass index (BMI) [Ratio] 25.85 kg/m2 Griselda Kuns Other [employer] Other 04-14-2021 08:45-0400 Body weight 77.11 kg Griselda Kuns Other [employer] Other 04-14-2021 08:45-0400 Diastolic blood pressure 80 mm[Hg] Griselda Kuns Other [employer] Other 04-14-2021 08:45-0400 Respiratory rate 16 /min Griselda Kuns Other [employer] Other 04-14-2021 08:45-0400 SaO2% (BldA) [Mass fraction] 99 % Griselda Kuns Other [employer] Other 04-14-2021 08:45-0400 Systolic blood pressure 124 mm[Hg] Griselda Kuns Other [employer] Other Encounters Encounter Date Encounter Type Care Provider Facility Start: 08-30-2023 End: 08-30-2023 ambulatory NIKOLE THOMASON Not Available Start: 08-14-2023 End: 08-14-2023 ambulatory NIKOLE THOMASON Not Available Start: 08-06-2023 End: 08-07-2023 ambulatory Sarina Ramsey MD Facility: [facility] Start: 08-02-2023 End: 08-02-2023 ambulatory DO Griselda Kuns Work Phone: [facility] Work Phone: Start: 08-02-2023 End: 08-02-2023 Patient encounter procedure DO Griselda Kuns Work Phone: [facility] Work Phone: Start: 07-26-2023 End: 07-26-2023 ambulatory NIKOLE THOMASON Not Available Start: 07-26-2023 Chart abstracting Nikole Thomason [employer] Work Phone: [facility] Start: 07-19-2023 End: 07-19-2023 ambulatory NIKOLE THOMASON Not Available Start: 07-19-2023 Bamboo flowsheet Nikole Thomason [employer] Work Phone: [facility] Start: 07-19-2023 Bamboo flowsheet Nikole Thomason [employer] Work Phone: [facility] Start: 07-18-2023 End: 07-21-2023 [facility] Start: 07-03-2023 End: 07-03-2023 ambulatory NIKOLE THOMASON Not Available Start: 07-02-2023 End: 07-02-2023 ambulatory Griselda Kuns Other [employer] Other Start: 07-02-2023 Office outpatient vi sit 25 minutes Griselda Kuns [facility] [place] Start: 07-02-2023 End: 07-02-2023 Patient encounter procedure DO Griselda Kuns Work Phone: [facility] [place] Work Phone: Start: 06-07-2023 End: 06-07-2023 ambulatory NIKOLE THOMASON Not Available Start: 05-31-2023 End: 05-31-2023 ambulatory Griselda Kuns Other [employer] Other Start: 05-31-2023 Office outpatient vi sit 25 minutes Griselda Kuns [facility] [place] Start: 05-30-2023 Office outpatient vi sit 15 minutes Ruddy Harvey [facility] Start: 05-30-2023 End: 05-30-2023 ambulatory DO Griselda Kuns Work Phone: [facility] [employer] Other Start: 05-30-2023 End: 05-31-2023 Patient encounter procedure DO Griselda Kuns Work Phone: [facility] Start: 05-30-2023 End: 05-30-2023 Patient encounter procedure DO Griselda Kuns Work Phone: [facility] Work Phone: Start: 05-15-2023 End: 05-15-2023 ambulatory Lilliam Cason Other [place] [employer] Other Start: 05-15-2023 Office outpatient vi sit 25 minutes Lilliam Cason [facility] Start: 05-15-2023 Telephone encounter Lilliam CHENG [facility] Start: 05-15-2023 End: 05-15-2023 Patient encounter procedure DO Griselda Kuns Work Phone: [facility] Work Phone: Start: 05-14-2023 End: 05-15-2023 ambulatory Sarina Ramsey MD Facility: [facility] Start: 05-07-2023 End: 05-07-2023 ambulatory Griselda Kuns Facility:[facility] Start: 05-07-2023 End: 05-07-2023 Admission to same day surgery center DO Griselda Kuns Work Phone: [facility]-Interventional Radiology Work Phone: Start: 05-07-2023 End: 05-07-2023 ambulatory DO Griselda Kuns Work Phone: [facility] Work Phone: Start: 05-04-2023 End: 05-04-2023 ambulatory Griselda Kuns Facility:[facility] Start: 05-04-2023 End: 05-04-2023 ambulatory DO Griselda Kuns Work Phone: [facility] Work Phone: Start: 05-04-2023 End: 05-04-2023 Patient encounter procedure DO Griselda Kuns Work Phone: [facility]-CT Scan [address] [place] Work Phone: Start: 05-03-2023 End: 05-03-2023 ambulatory Ruddy Harvey Other [employer] Other Start: 05-03-2023 Office outpatient ne w 45 minutes Ruddy Harvey [facility] Vascular Surgery Start: 05-03-2023 Telephone encounter Ruddy Bond [facility] Start: 05-01-2023 End: 05-01-2023 ambulatory Griselda Kuns Other [employer] Other Start: 05-01-2023 Office outpatient vi sit 25 minutes Griselda Kuns [facility] [place] Start: 04-25-2023 End: 04-25-2023 ambulatory Lilliam Kamla Facility:[facility] Start: 04-25-2023 End: 04-25-2023 ambulatory DO Griselda Kuns Work Phone: [facility] Work Phone: Start: 04-25-2023 End: 04-25-2023 Patient encounter procedure DO Griselda Kuns Work Phone: [facility]Ultrasound [facility] [place] Work Phone: Start: 04-16-2023 End: 04-17-2023 ambulatory Sarina Ramsey MD Facility:[facility] Start: 04-12-2023 End: 04-12-2023 ambulatory Lilliam Cason Other [employer] Other Start: 04-12-2023 Telephone encounter Lilliam Kamla [facility] Start: 04-11-2023 End: 04-11-2023 ambulatory Lilliam Kamla Other [employer] Other Start: 04-11-2023 Office outpatient ne w 45 minutes Lilliam Kamla [facility] Start: 04-10-2023 End: 04-10-2023 ambulatory Griselda Kuns Other [employer] Other Start: 04-10-2023 Telephone encounter Griseldakeith Mendezs [facility] [place] Start: 03-30-2023 End: 03-30-2023 ambulatory Griselda Kuns Facility:[facility] Start: 03-30-2023 End: 03-30-2023 ambulatory DO Griselda Kuns Work Phone: [facility] Work Phone: Start: 03-30-2023 End: 03-30-2023 Patient encounter procedure DO Griselda Kuns Work Phone: [facility]-Lab [address] [place] Work Phone: Start: 03-21-2023 End: 03-21-2023 Emergency department patient visit Rohit Agrawal Facility:[facility] Start: 03-21-2023 End: 03-21-2023 Emergency department patient visit DO Griselda Kuns Work Phone: [facility]-Emergency Room Work Phone: Start: 03-15-2023 End: 03-15-2023 ambulatory Griselda Kuns Other [employer] Other Start: 03-15-2023 Office outpatient vi sit 25 minutes Griselda Kuns [facility] Start: 03-08-2023 End: 03-08-2023 ambulatory Griselda Kuns Other [employer] Other Start: 03-08-2023 Office outpatient vi sit 25 minutes Griselda Kuns [facility] Start: 02-26-2023 End: 02-26-2023 Emergency department patient visit Daniel Gaytan Facility:[facility] Start: 02-26-2023 End: 02-26-2023 Emergency department patient visit DO Griselda Kuns Work Phone: [facility]-Emergency Room Work Phone: Start: 12-28-[address] BRET Lawrence ity:UNKNOWN Start: 12-05-2022 End: 12-05-2022 ambulatory Griselda Kuns Other [employer] Other Start: 12-05-2022 Office outpatient vi sit 25 minutes Griselda Kuns [facility] Start: 11-15-2022 End: 11-15-2022 ambulatory Lima Joseph Facility:[facility] Start: 11-15-2022 End: 11-15-2022 ambulatory DO Griselda Kuns Work Phone: [facility] Work Phone: Start: 11-15-2022 End: 11-15-2022 Patient encounter procedure DO Griselda Kuns Work Phone: [facility]-MRI [address] Work Phone: Start: 10-27-2022 End: 10-27-2022 ambulatory GRISELDA KRAUSE Facility:[facility] Start: 10-24-2022 End: 10-24-2022 ambulatory Griselda Andreas Facility:[facility] Start: 10-24-2022 End: 10-24-2022 ambulatory DO Griselda Kuns Work Phone: [facility] Work Phone: Start: 10-24-2022 End: 10-24-2022 Patient encounter procedure DO Griselda Kuns Work Phone: [facility]-Lab [place] Work Phone: Start: 10-17-2022 End: 10-17-2022 ambulatory ARSENIO JACKSON Facility:[facility] Start: 09-28-2022 End: 09-28-2022 ambulatory DEMOND CAT Facility:[facility] Start: 09-22-2022 End: 09-22-2022 ambulatory KELTON PEREZ Facility:[facility] Start: 09-22-2022 End: 09-22-2022 Subsequent hospital visit by physician Jonelle Hernandez (I-Stat/3t) Work Phone: Radiology Comment on above: 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] Start: 09-18-2022 Telephone encounter Kelton ghosh PA-C Work Phone: [facility] Comment on above: Patient Question Start: 09-13-2022 End: 09-13-2022 ambulatory ELVI CADENA Facility:[facility] Start: 09-13-2022 End: 09-13-2022 Patient encounter procedure Kelton Perez PA-C Work Phone: [facility] Comment on above: NPH (normal pressure hydrocephalus) (HCC) (Primary Dx) Start: 08-31-2022 End: 08-31-2022 ambulatory Griseldakeith Mendezs Other [facility] Other Start: 08-31-2022 Office outpatient vi sit 25 minutes Griselda Krause [facility] [place] Start: 08-01-2022 End: 08-01-2022 ambulatory Griselda Andreas Other [employer] Other Start: 08-01-2022 Office outpatient vi sit 25 minutes Griselda Kuns [facility] Medicine [place] Start: 07-17-2022 End: 07-17-2022 ambulatory DO Griselda Kuns Work Phone: [facility] Work Phone: Start: 07-17-2022 End: 07-17-2022 Patient encounter procedure DO Griselda Kuns Work Phone: [facility]-XRay [address] [place] Work Phone: Start: 07-14-2022 End: 07-14-2022 Patient encounter procedure DO Griselda Kuns Work Phone: [facility]-CT Scan [place] Work Phone: Start: 06-28-2022 End: 06-28-2022 ambulatory Trish Blades Other [facility] Other Start: 06-28-2022 Office outpatient ne w 45 minutes Trish Blades [facility] Neurosurgery Start: 05-26-2022 End: 05-26-2022 ambulatory Griselda Kuns Other [employer] Other Start: 05-26-2022 Office outpatient vi sit 25 minutes Griselda Kuns [facility] Start: 05-17-2022 End: 05-17-2022 ambulatory DO Griselda Kuns Work Phone: [facility] Work Phone: Start: 05-17-2022 End: 05-17-2022 Discharged Recurring DO Griselda Kuns Work Phone: [facility]-Physical Therapy [address] Start: 04-27-2022 Registered Recurring DO Griselda Kuns Work Phone: [facility]-Physical Therapy [address] Start: 04-16-2022 End: 04-17-2022 Emergency department patient visit DO Griselda Kuns Work Phone: [facility]-Emergency Room Start: 04-10-2022 End: 04-10-2022 ambulatory Griselda Kuns Other [facility] Other Start: 04-10-2022 Telephone encounter Griselda Kuns [facility] Start: 04-06-2022 End: 04-06-2022 Emergency department patient visit DO Griselda Kuns Work Phone: [facility]-Emergency Room Start: 03-27-2022 Telephone encounter Asya Greene RN Hematology/Oncology Comment on above: Appointment Start: 03-22-2022 End: 03-22-2022 ambulatory Griselda Kuns Other [facility] Other Start: 03-22-2022 Telephone encounter Griselda Kuns [facility] Start: 03-16-2022 End: 03-16-2022 ambulatory Griselda Kuns Other [facility] Other Start: 03-16-2022 Office outpatient vi sit 25 minutes Griselda Kuns [facility] Start: 03-16-2022 Telephone encounter Self [facility] Comment on above: Triage (Internal Ref erral--old) Start: 03-09-2022 End: 03-09-2022 ambulatory Griselda Kuns Other [facility] Other Start: 03-09-2022 Telephone encounter Griselda Kuns [facility] Start: 03-07-2022 End: 03-07-2022 ambulatory Griselda Kuns Other [facility] Other Start: 03-07-2022 Telephone encounter Griselda Kuns [facility] Start: 03-03-2022 Telephone encounter Griselda Kuns [facility] Start: 03-03-2022 End: 03-03-2022 ambulatory DO Griselda Kuns Work Phone: [facility] Other Start: 03-03-2022 End: 03-03-2022 Discharged Recurring DO Griselda Kuns Work Phone: [facility]-Physical Therapy [address] Start: 03-03-2022 Registered Recurring DO Griselda Kuns Work Phone: [facility]-Physical Therapy [address] Start: 02-07-2022 End: 02-07-2022 ambulatory Griselda Kuns Other [facility] Other Start: 02-07-2022 Telephone encounter Griselda Kuns [facility] [place] Start: 01-30-2022 End: 01-30-2022 ambulatory Griselda Kuns Other [employer] Other Start: 01-30-2022 Office outpatient vi sit 25 minutes Griselda Kuns [facility] [place] Start: 01-12-2022 End: 01-12-2022 ambulatory Griselda Kuns Other [employer] Other Start: 01-12-2022 Telephone encounter Griselda Kuns [facility] Medicine [place] Start: 12-26-2021 End: 12-26-2021 ambulatory Griselda Kuns Other [employer] Other Start: 12-26-2021 Office outpatient vi sit 25 minutes Griselda Kuns [facility] [place] Start: 12-23-2021 End: 12-23-2021 ambulatory Griselda Kuns Other [facility] Other Start: 12-23-2021 Telephone encounter Griselda Kuns [facility] [place] Start: 12-05-2021 End: 12-05-2021 ambulatory Griselda Kuns Other [employer] Other Start: 12-05-2021 Office outpatient vi sit 25 minutes Griselda Kuns [facility] Start: 12-05-2021 Telephone encounter Griselda Kuns [facility] Start: 11-22-2021 End: 11-22-2021 ambulatory Griselda Kuns Other [facility] Other Start: 11-22-2021 Telephone encounter Griselda Kuns [facility] Start: 11-21-2021 Office outpatient vi sit 15 minutes Griselda R Kuns Work Phone: [facility] Work Phone: Start: 11-09-2021 End: 11-09-2021 ambulatory Griselda Kuns Other [facility] Other Start: 11-09-2021 Telephone encounter Griselda Kuns [facility] Start: 11-08-2021 End: 11-08-2021 ambulatory Griselda Kuns Other [employer] Other Start: 11-08-2021 Office outpatient vi sit 25 minutes Griselda Kuns [facility] Start: 11-03-2021 Office consultation new/estab patient 60 min Griselda R Kuns Work Phone: [facility] Work Phone: Start: 11-01-2021 End: 11-01-2021 ambulatory Griselda Kuns Other [facility] Other Start: 11-01-2021 Office outpatient vi sit 25 minutes Griselda Kuns [facility] Start: 10-31-2021 End: 10-31-2021 ambulatory Sheng Schneider Other [employer] Other Start: 10-31-2021 Telephone encounter Sheng Schneider [facility] Neuro[facility] Start: 10-27-2021 End: 10-27-2021 ambulatory Memo Cole MD Work Phone: Hematology/Oncology Comment on above: 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) Start: 10-13-2021 End: 10-13-2021 Patient encounter procedure Memo Cole MD Work Phone: [place] Start: 10-06-2021 End: 10-06-2021 ambulatory Griselda Krause Other [facility] Other Start: 10-06-2021 Telephone encounter Asya Kumar RN Hematology/Oncology Comment on above: Results Start: 09-29-2021 End: 09-29-2021 ambulatory Griselda Krause Other [employer] Other Start: 09-29-2021 Telephone encounter Griselda Krause [facility] Start: 09-27-2021 End: 09-27-2021 ambulatory Griselda Krause Other [employer] Other Start: 09-27-2021 Telephone encounter Griselda Kuns [facility] Start: 09-19-2021 End: 09-19-2021 ambulatory Griselda Kuns Other [employer] Other Start: 09-19-2021 Office outpatient vi sit 25 minutes [facility] Start: 09-12-2021 End: 09-12-2021 ambulatory Griselda Kuns Other [employer] Other Start: 09-12-2021 Telephone encounter [facility] Start: 09-08-2021 End: 09-08-2021 ambulatory Griselda Kuns Other [facility] Other Start: 09-08-2021 Telephone encounter [facility]uns [facility] Start: 06-30-2021 End: 06-30-2021 ambulatory Griselda Kuns Other [employer] Other Start: 06-30-2021 Office outpatient vi sit 15 minutes Griselda Kuns [facility] Start: 06-30-2021 Telephone encounter [facility]uns [facility] Start: 06-29-2021 End: 06-29-2021 ambulatory Griselda Kuns Other [employer] Other Start: 06-29-2021 Nursing evaluation o f patient and report Griselda Kuns [facility] [place] Start: 04-19-2021 End: 04-19-2021 ambulatory Griselda Kuns Other [employer] Other Start: 04-19-2021 Nursing evaluation o f patient and report [facility] Kuns [facility] Start: 04-19-2021 Telephone encounter [facility]uns [facility] Start: 04-14-2021 Office outpatient vi sit 15 minutes Griselda Krause [facility] Medicine [place] Start: 10-01-2020 End: 10-01-2020 Patient encounter procedure Griselda Krause Work Phone: -Electrodiagnostics Start: 09-20-2020 End: 09-20-2020 Patient encounter procedure Griselda Krause -Lab [facility] Start: 09-13-2020 End: 09-13-2020 Patient encounter procedure Griselda Krause -XRay [facility] Procedures Date Procedure Procedure Detail Performing Clinician Start: 05-07-2023 Lower limb angiography DO Griselda Krause Work Phone: Start: 05-04-2023 CT angiography of head DO Griselda Krause Work Phone: Start: 05-04-2023 CT angiography of neck vessels DO Griselda Krause Work Phone: Start: 04-25-2023 Pulse volume recorder pneumoplethysmography DO Griseldakeith Krause Work Phone: Start: 02-26-2023 SARS Antigen (LFIA) DO Griselda TapMegideon Work Phone: Start: 11-15-2022 MR lumbar spine wo con DO Griselda Krause Work Phone: Start: 11-15-2022 XR pre/post mri xray DO Griselda Krause Work Phone: Start: 09-22-2022 Mri brain brain stem w/o w/contrast material Kelton Perez PA-C Work Phone: Start: 07-14-2022 CT of head without contrast DO Griseldakeith meneses Work Phone: Start: 04-16-2022 Plain chest X-ray DO Griseldakeith Krause Work Phone: Start: 04-06-2022 CT cervical spine without contrast DO Griselda Krause Work Phone: Start: 10-13-2021 Adult depression screening assessment Memo Cole MD Work Phone: Start: 10-14-2020 Adult depression screening assessment Asya Kumar RN Start: 09-13-2020 Plain chest X-ray Griselda Krause Excision of melanoma Griselda Krause Work Phone: Plan of Treatment Date Care Activity Detail Author Start: 10-06-2024 DIABETES SCREEN DIABETES SCREEN [facility] Start: 03-03-2024 Influenza vaccination Influenza Vaccine (#1) [facility] Comment on above: Postponed from 02/16/2023 (Patient Refus ed) Start: 08-30-2023 End: 08-30-2023 Patient encounter procedure 08/30/2023 9:40 AM EDT Office Visit [facility] [address] [place] [address] Nikole Thomason, [employer]USHION MAK[employer] HAND [address] [place] [address] [facility] Start: 07-26-2023 End: 07-26-2023 Patient encounter procedure 07/26/2023 1:30 PM EST Procedure Visit [facility]O [address] [place] [address], [place] [address] Nikole Thomason, [employer]USHION [employer] HAND [address] [place] [address], [place] [address] [facility]O 210 Start: 07-19-2023 End: 07-19-2023 Clinical Support 07/19/2023 1:30 PM EST Clinical Support [facility] [address] [place] [address] Nikole Thomason, [employer] [address] [place] [address], [place] [address] Cervical dystonia [facility] Comment on above: Cervical dystonia Start: 05-07-2023 Pulse volume recorder pneumoplethysmography US arterial pvr rest [facility] Start: 05-07-2023 [facility] Start: 05-07-2023 [facility] Start: 04-25-2023 Pulse volume recorder pneumoplethysmography US arterial pvr rest LE [facility] Start: 02-16-2023 Influenza vaccination INFLUENZA (Season Ended) [facility] Start: 10-30-2022 End: 10-30-2022 CBC W Auto Differential panel - Blood CBC + DIFF Lab Routine 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) Lung nodules Malignant neoplasm of head, face and neck (HCC) Expected: 10/30/2022 (Approximate), Expires: 10/30/2022 [facility] Work Phone: Comment on above: Expected: 10/30/2022 (Approximate), Expi res: 10/30/2022 Start: 10-30-2022 End: 10-30-2022 Comprehensive metabolic 2000 panel - Serum or Plasma COMP METABOLIC PANEL Lab Routine 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) Lung nodules Malignant neoplasm of head, face and neck (HCC) Expected: 10/30/2022 (Approximate), Expires: 10/30/2022 [facility] Work Phone: Comment on above: Expected: 10/30/2022 (Approximate), Expi res: 10/30/2022 Start: 10-30-2022 End: 11-29-2022 Ct soft tissue neck w/contrast material CT NECK SOFT TISSUE W IVCON Radiology Routine Malignant neoplasm of head, face and neck (HCC) Expected: 10/30/2022 (Approximate), Expires: 11/29/2022 [facility] Work Phone: Comment on above: Expected: 10/30/2022 (Approximate), Expi res: 11/29/2022 Start: 10-30-2022 End: 11-29-2022 Ct thorax w/contrast material CT CHEST W IVCON Radiology Routine Lung nodules Expected: 10/30/2022 (Approximate), Expires: 11/29/2022 [facility] Work Phone: Comment on above: Expected: 10/30/2022 (Approximate), Expi res: 11/29/2022 Start: 10-13-2022 Adult depression screening assessment DEPRESSION SCREENING [facility] Start: 07-17-2022 Aerobic Culture Aerobic Culture [facility] Start: 07-17-2022 Anaerobic Culture Anaerobic Culture [facility] Start: 07-17-2022 Microscopic observation [Identifier] in Unspecified specimen by Gram stain [facility] Start: 07-17-2022 Cerebrospinal fluid culture [facility] Start: 07-17-2022 End: 07-17-2022 [facility] Start: 07-17-2022 [facility] Start: 06-18-2022 DEPRESSION ASSESSMENT DEPRESSION ASSESSMENT [facility] Start: 04-16-2022 Plain chest X-ray XR ribs LT min 3V w CXR1V* [facility] Start: 04-16-2022 XR Unspecified body region Views [facility] Start: 02-16-2022 Influenza vaccination [facility] Start: 10-14-2021 Adult depression screening assessment DEPRESSION SCREENING [facility] Start: 06-23-2021 COVID-19 VACCINE (3 - Booster for Pfizer series) COVID-19 VACCINE (3 - Booster for Pfizer series) [facility] Start: 06-18-2021 DEPRESSION ASSESSMENT DEPRESSION ASSESSMENT [facility] Start: 03-18-2021 COVID-19 VACCINE (3 - Booster for Pfizer series) COVID-19 VACCINE (3 - Booster for Pfizer series) [facility] Start: 2017 PROSTATE CANCER SCREENING DISCUSSION PROSTATE CANCER SCREENING DISCUSSION [facility] Start: 2012 SHINGRIX VACCINE (1 of 2) SHINGRIX VACCINE (1 of 2) [facility] Start: 11-25-2007 COLOGUARD (FIT-DNA) COLOGUARD (FIT-DNA) [facility] Start: 11-25-2007 Colonoscopy COLONOSCOPY [facility] Start: 11-25-2007 COLORECTAL CANCER SCREENING COLORECTAL CANCER SCREENING [facility] Start: 11-25-[address] COLONOGRAPHY [facility] Start: 11-25-2007 FECAL OCCULT BLOOD FECAL OCCULT BLOOD [facility] Start: 11-25-2007 SIGMOIDOSCOPY SIGMOIDOSCOPY [facility] Start: 1997 LIPID SCREEN LIPID SCREEN [facility] Start: 1981 Urine microalbumin profile DTAP,TDAP,TD (1 - Tdap) [facility] Start: 1980 HEPATITIS C SCREENING HEPATITIS C SCREENING [facility] Start: 1980 HIV SCREENING HIV SCREENING [facility] Start: 1962 Screening for malignant neoplasm of colon [facility] Bacteria identified in Cerebral spinal fluid by Culture CSF CULT + STAIN Microbiology Routine NPH (normal pressure hydrocephalus) ([facility]) Ordered: 09/13/2022 [facility] Work Phone: Comment on above: Ordered: 09/13/2022 Bacteria identified in Unspecified specimen by Aerobe culture [facility] Bacteria identified in Unspecified specimen by Anaerobe culture [facility] Cell count panel - C erebral spinal fluid CSF CELL COUNT Lab Routine NPH (normal pressure hydrocephalus) ([facility]) Ordered: 09/13/2022 [facility] Work Phone: Comment on above: Ordered: 09/13/2022 Cell count, cerebros roberto fluid [facility] Enolase.neuron speci fic [Mass/volume] in Serum or Plasma by Immunoassay [facility] Fungus identified in Unspecified specimen by Culture [facility] Glucose [Mass/volume ] in Cerebral spinal fluid [facility] IR LP FOR DRAINAGE (PRESSURE) IR LP FOR DRAINAGE (PRESSURE) Radiology Routine NPH (normal pressure hydrocephalus) ([facility]) Ordered: 09/13/2022 [facility] Work Phone: Comment on above: Ordered: 09/13/2022 Meningitis+Encephali tis pathogens DNA and RNA panel - Cerebral spinal fluid by JER with non-probe detection [facility] End: 10-20-2023 Mri brain brain stem w/o w/contrast material MRI BRAIN WO/W IVCON Radiology Routine 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[facility]) 1 Occurrences starting 09/20/2022 until 10/20/2023 [facility] Work Phone: Comment on above: 1 Occurrences starting 09/20/2022 until 10/20/2023 Patient Education [facility] Work Phone: Patient referral [facility] Work Phone: Protein [Mass/volume ] in Cerebral spinal fluid [facility] Virus identified in Unspecified specimen by Culture [facility] Immunizations Immunization Date Immunization Notes Care Provider Carla marie 01-21-2021 COVID-19 Vaccine Pfi zer - Documentation Purposes Only Griseldakeith Krause Other [facility] 12-30-2020 COVID-19 Vaccine Pfi zer - Documentation Purposes Only Griselda Andreas Other [facility] 01-24-2016 KENALOG - 10 mg Griselda Kuns Other [facility] Other 01-27-2015 Toradol per 15 mg Griselda Kuns Other [facility] Other 03-15-2014 tetanus toxoid, redu julienne diphtheria toxoid, and acellular pertussis vaccine, adsorbed Griselda Kuns Other [facility] Other Payers Date Payer Category Payer Self-pay [id number] 2022 Private Health Insurance [id number] 2022 Unknown 2021 Private Health Insurance [employer] [id number] 2021-Present [phone] [address] [place] [address] PPO [id number] 2021 Private Health Insurance [id number]. [id number] 2019 Medicaid [employer] [id number] 2019-Present [phone] [address] [place] [address] Medicaid [id number] 2019 Medicaid [id number]. [id number] 2019 Unknown [id number] 2019 Unknown [id number] 2.16.840.1.416096.19 1962 Unknown [id number] 2.16.840.1.965603.3.579.2. 693 1962 Unknown [id number] 2.16.840.1.792805.3.579.2. 356 1962 Unknown [id number] 2.16.840.1.552029.3.579.2. 182 1962 Unknown [id number] 2.16.840.1.350030.3.579.2. 182 1962 Unknown [id number] 2.16.840.1.953308.3.579.2. 196 1962 Unknown [id number] 2.16.840.1.505324.3.579.2. 196 1962 Unknown [id number] 2.16.840.1.017529.3.579.2. 196 1962 Unknown [id number] 2.16.840.1.760054.3.579.2. 1259 1962 Unknown [id number] 2.16.840.1.846450.3.579.2. 1259 1962 Unknown [id number] 2.16.840.1.492300.3.579.2. 1259 1962 Unknown [id number] 2.16.840.1.154193.3.579.2. 1259 1962 Unknown [id number] 2.16.840.1.663805.3.579.2. 1259 1962 Unknown [id number] 2.16.840.1.728553.3.579.2. 1259 Private Health Insurance [id number] Unknown [id number] Unknown [id number] 2.16.840.1.181791.3.579.2. 531 Unknown [id number] 2.16.840.1.184055.3.579.2. 531 Unknown [id number] 2.16.840.1.708581.3.579.2. 531 Unknown [id number] 2.16.840.1.250114.3.579.2. 531 Unknown [id number] 2.16.840.1.491403.3.579.2. 531 Unknown [id number] 2.16.840.1.964082.3.579.2. 531 Unknown [id number] 2.16.840.1.126299.3.579.2. 531 Unknown [id number] 2.16.840.1.412948.3.579.2. 531 Unknown [id number] 2.16.840.1.720860.3.579.2. 531 Social History Date Type Detail Facility Start: 04-29-2018 End: 07-07-2023 Tobacco smoking status [facility] Smoker (finding) [facility] Start: 1960 Sex Assigned At Male [facility] Start: 10-16-2019 Tobacco smoking status NHIS Ex-smoker [facility] History of tobacco use Cigarette Smoker C [facility] Start: 10-16-2019 End: 07-19-2023 Cigarettes smoked current (pack per day) - Reported 1.5 [facility] Start: 10-16-2019 End: 03-13-2023 Tobacco use and exposure Smokeless tobacco non-user [facility] Start: 10-14-2020 End: 07-19-2023 Alcohol intake Ex-drinker (finding) [facility] Start: 01-20-2019 History SDOH Alcohol Comment quit 2002 [facility] Start: 10-16-2019 Tobacco Comment quit smoking 01/2019 [facility] Start: 1960 Sex Assigned At Not on file [facility] Start: 10-03-2021 End: 10-13-2021 Exposure to SARS-CoV-2 (event) Not sure [facility] Start: 07-03-2023 End: 07-19-2023 Sex Assigned At [facility] Start: 03-10-2022 End: 03-20-2022 Exposure to SARS-CoV-2 (event) Unable to assess [facility] Work Phone: Start: 12-28-2022 End: 03-13-2023 Daily Smoker [facility] Start: 03-13-2023 Tobacco Comment 6-10 cigarettes/day [facility] Start: 11-22-2022 Gender identity Identifies as male gender (finding) [facility] Start: 11-22-2022 Sexual orientation Heterosexual (finding) [facility] Medical Equipment Procedure Code Equipment Code Equipment Origin al Text Equipment Identifier Dates Angiogram, lower extremity, left Multiple peripheral artery stent, bare-metal [id number] [facility] Start: 05-07-2023 Goals Date Patient Goal Desired [...] continue to follow with them as scheduled. [facility] Other 12-14-2023 Evaluation note* Encounter Date Diagnosis Assessment Notes Treatment Notes Treatment Clinical Notes May, PAD (peripheral artery disease) (ICD-10 - I73.9) Patient recently had angioplasty for occlusion of right iliac artery that was discovered by band scroll saw operator. He has been doing well since the [...] work before I provide him that consent. [facility] Other 12-13-2023 Evaluation note* Encounter Date Diagnosis [...] I will see him in 3 months. [facility] Other 11-28-2023 Evaluation note* Encounter Date Diagnosis Assessment Notes Treatment Notes Treatment Clinical Notes Apr, Claudication of both lower extremities (ICD-10 - I73.9) 62 yr old male medical history significant for squamous cell, status post head and neck surgery with tongue resection and lymph node dissection in 2018, hypertension, hyperlipidemia, osteoarthritis of the cervical spine [...] 3 months Apr, Lightheadedness (ICD-10 - R42) [facility]-20-[facility] Encounter Date Diagnosis Assessment [...] questions were addressed and consent was obtained. 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 He states he has an upcoming cervical epidural scheduled. The patient remains out of work on residential disability , he voices interest in returning to work soon. Apr, PAD (peripheral artery disease) (ICD-10 - I73.9) Arterial studies ordered by band scroll saw operator indicating peripheral artery disease. The patient does report lower extremity pain and heaviness and I recommend it would be beneficial to consult with a vascular specialist. The patient is in agreement, therefore a referral was initiated. A CTA has been ordered by neurologist , appointment pending [facility] scheduling. Apr, Hyperlipidemia (ICD-10 - E78.5) Blood [...] vocies understanding. We will continue to monitor. [facility] Other 10-26-2023 Evaluation note* Encounter Date Diagnosis Assessment Notes Treatment Notes Treatment Clinical Notes Mar, Claudication (ICD-10 - I73.9) [facility] Other 10-25-2023 Evaluation note* Encounter Date Diagnosis Assessment Notes Treatment Notes Treatment Clinical Notes Mar, Claudication of both lower extremities (ICD-10 - I73.9) 62 yr old male medical history significant for squamous cell, status post head and neck surgery with tongue resection and lymph node dissection in 2018, hypertension, hyperlipidemia, osteoarthritis of the cervical spine [...] 4 weeks Mar, Lightheadedness (ICD-10 - R42) [facility] Other 10-24-2023 Evaluation note* Encounter Date Diagnosis Assessment Notes Treatment Notes Treatment Clinical Notes Mar, Elevated blood pressure reading (ICD-10 - R03.0) [facility] Other 09-28-2023 Evaluation note* Encounter Date Diagnosis [...] infection. Feb, Burning sensation (ICD-10 - R20.8) [facility] Other 09-21-2023 Evaluation note* Encounter Date Diagnosis [...] index finger. We will continue to monitor. [facility] Other 07-13-2023 Hospital Discharge instructions Diet Plan/Instructions [...] * Discharge Physician: : Lima Joseph MD ([id number]) - Anesthesiology, Pain Management * Discharge Physician Phone: : [phone] [address] [facility] [address], [place] [address] Special Plan/Instructions for Discharge from 12/27/2022 10:26 AM: * Special Instructions : Spoke to patient Wound Care Instruction for Discharge from 12/27/2022 10:26 AM: * Special Instructions : Spoke to patient [employer] 06-20-2023 Evaluation note* Encounter Date Diagnosis Assessment [...] sent to the office to be completed. [facility] Other 05-12-2023 NoteHNO ID: [id number] Author: RT Craig(R) Service: ? Author Type: [...] with PATIENT DISCHARGED TO: Ambulatory patient, left [place] department area. A Diagnostic radioactive procedure has taken place, with no further precautions necessary other than routine body substance precautions. More information regarding radiation safety can be found using this link: [email or web address] SIGNATURE: RT Criag(R) PATIENT NAME: Jovani Melendez DATE: October 27, 2022 TIME: 11:55 AM PAGER/CONTACT #:[facility]05-02-2023 NoteHNO ID: [id number] Author: Arsenio Jackson MD Service: ? Author [...] benefit from shunt I would not rec SUPPLY CHAIN ASSISTANT-shunt Explained vasc claudication as possible cause for R calf pain Reassured him 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 He is following up with his Neurologist I spent 30 mins reviewing the chart and discussing a plan of care Arsenio Jackson MD [facility] NoteHNO ID: [id number] Author: RT Julio(R) Service: Radiology Author Type: [...] Melendez DATE: September 22, 2022 TIME: 2:39 [facility]04-07-2023 History of Present illness Narrative* RT Julio(R) [...] 2022 TIME: 2:39 PM documented in this encounterHol[facility]-05-2023 Miscellaneous Notes* Telephone Encounter - Akash Menezes [...] and recommendation. * Telephone Encounter - Selam Torito Adm - 09/18/2022 12:20 PM EDT General Call Caller : Jovani Contact Reason for Call : Pt has follow up questions after most recent visit. Patient requesting return call ? Yes documented in this encounterHolzer Medical Center [facility]03-29-2023 NoteHNO ID: [id number] Author: Kelton Perez PA-C Service: ? Author Type: Physician Baseball Hand Sewer Type: Progress Notes Filed: 09/20/2022 11:24 AM Note Text: This note was created using [employer] Far[employer]. Subjective Jovani Melendez is a 61 year [...] or pronator drift. Coordination: Romberg sign negative. Dgfjcc-Imwx-Vvwsja Test normal. Gait: Gait abnormal. Comments: Slightly [...] which included preparing to see the patient, wybr-ms-rvbl patient care, completing clinical documentation, obtaining and/or reviewing separately obtained history, performing a medically appropriate examination, counseling and educating the patient/family/caregiver, ordering medications, tests, or procedures, communicating with other HCPs (not separately reported), independently interpreting results (not separately reported), communicating results to the patient/family/caregiver, and care coordination (not separately reported).[facility]03-29-[facility] Instructions* Patient Instructions* Kelton Perez PA-C - [...] perform on same dariusz. documented in this encounterHolzer Medical Center – [facility]03-29-2023 Nurse Note* Antonia Tripathi MA - 09/13/2022 10:55 AM EDT Additional intake questions: Has the patient had fever, nausea, vomiting, diarrhea, constipation, fatigue for > 1 week? Yes, diarrhea ( 3 times in last 24 hours), fatigue, and Provider Notified Does the patient have a decreased appetite? No Does patient want to see a Conditioning Machine Operator? No (yes to any of above refer [...] By: Antonia Tripathi MA documented in this encounterHolzer Medical Center – [facility]03-29-2023 History of Present illness Narrative* Kelton Perez PA-C - 09/13/2022 10:44 AM EDT This note was created using APerfectShirt.comter. Subjective Jovani Melendez is a 61 year [...] or pronator drift. Coordination: Romberg sign negative. Txxqug-Uful-Hxoqxa Test normal. Gait: Gait abnormal. Comments: Slightly [...] which included preparing to see the patient, kaoy-my-rnmw patient care, completing clinical documentation, obtaining and/or reviewing separately obtained history, performing a medically appropriate examination, counseling and educating the pat ient/family/caregiver, ordering medications, tests, or procedures, communicating with other HCPs (not separately reported), independently interpreting results (not separately reported), communicatingresults to the patient/family/caregiver, and care coordination (not separately reported). documented in this encounterHolzer Medical Center – [facility]03-16-2023 Evaluation note* Encounter Date Diagnosis Assessment Notes [...] her mid twenties. He will see the CUSHION MAKER HAND at Dr. Cadena's office today, and will see the [facility] 09/13/22. I do feel pt needs his FMLA extended until 12/16/22. I encouraged him to continue to follow with these doctors, and we will continue to monitor. [facility] Other 02-14-2023 Evaluation note* Encounter Date Diagnosis [...] the patient is off work until 09/16/22. 14 Jul, 2022 Insomnia, unspecifie d type (ICD-10 - G47.00) [...] pain medication and fever reducers as needed. [facility] Other 01-11-2023 Evaluation note* Encounter Date Diagnosis Assessment Notes Treatment Notes Treatment Clinical Notes Jun, Other complicated headache syndrome (ICD-10 - G44.59) [facility] Other 12-09-2022 Evaluation note* Encounter Date Diagnosis [...] check on him again in 1 month. [facility] Other 10-30-2022 Hospital Discharge instructions Additional Instructions [...] week to see how you are doing. [facility] Work Phone: [phone] Miscellaneous Notes* Telephone Encounter - Memo Cole MD - 03/27/2022 3:54 PM EDT Good with me * Telephone Encounter - Asya Greene RN - 03/27/2022 2:17 PM EDT Informed patient of your recommendations. He states that he is seeing neurology in [place] and they do not feel he needs [...] the weekend about an appointment with a [facility] neurosurgeon. He has not seen you since 10/2021. He states st that time you did not see the need for a neurosurgeon as his tumor wastoo small. Now he all of the sudden has an appointment with this [facility] neurosurgeon and is confused. Can you review and advise as to this appointment with the neurosurgeon. Asya Greene RN documented in this encounterHolzer Medical Center – [facility]09-29-2022 Miscellaneous Notes* Telephone Encounter - Pamela Nascimento APRN.CREDIT INVESTIGATOR - 03/16/2022 2:51 PM EDT Time Frame: Next available Provider: Intra-axial neurosurgeon & Neuro-Oncology (same day) Referring: Memo Cole MD Please instruct patient to hand carry/ upload images prior to appt Dx: Low grade glioma Patient: Jovani Melendez Address: Jovani Melendez [id number] [place] [address] Per Triage: Jovani Melendez is a 61 year old male that requests evaluation of previously diagnosed possible low grade glioma. Patient expectations: Second opinion Tumor Specifics: Location: brain Previous Evaluations: MRI w/wo contrast (10/05/21): 10/05/2021 MRI Brain [facility] Impression: 1. There is T2 and T2 [...] (HCC) [C71.9 (ICD-10-CM)] Order Questions Question Answer [facility] Brain Tumor [facility] Epic access? Yes documented in this encounterHolzer Medical Center – [facility]09-29-2022 Evaluation note* Encounter Date Diagnosis Assessment Notes [...] see if this gives him some relief [facility] Other 08-15-2022 Evaluation note* Encounter Date Diagnosis [...] - G93.9) Patient had another MRI at [facility] We are awaiting for the results to be faxed over. Patient is to continue to follow with Dr. Cadena as scheduled. Jan, Anxiety and depression (ICD-10 [...] again next week. We are awaiting for [facility] to fax over the consult and MRI results. Jan, Neck pain (ICD-10 - M54.2) The patients neck pain is persistant but the headache has improved with a medication change. Discussed with Dr. Cadena his persistent neck pain, may need MRI of his neck and/or EMG. Due to his multiple other medications did hold off on any pain medications. [facility] Other 07-11-2022 Evaluation note* Encounter Date Diagnosis [...] blood pressure was elevated upon check in. [facility] Other 06-20-2022 Evaluation note* Encounter Date Diagnosis [...] rule out other causes of his symptoms. [facility] Other 05-24-2022 Evaluation note* Encounter Date Diagnosis [...] will complete the necessary medical disability forms. 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 Narayan, and he is now referring on to Dr. Jonny Vigil at the [facility] for 2nd opinion. Reviewed consult note from [...] this medication. Will continue to follow up [facility] Other 05-12-2022 History of Present illness Narrative* Memo Cole MD - 10/27/2021 5:05 PM EDT Images from the original note were not included. NAME: Jovani Melendez [facility] NO.: [id number] DATE OF SERVICE: October 27, 2021 Some elements in this clinic note that are critical to medical decision making have been carefully reviewed and included from a prior clinic note dated: October 13, 2021 Referring Provider: Griselda Krause, DO Additional Clinicians involved in Jovani Melendez's care: Dr Kimberly Nichole ENT, Dr. Ibarra AL surgery [facility] AMBULATORY TELEPHONE VISIT Jovani Melendez has consented to this telephone encounter. 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 Dr. Nichole ENT Dr. Ibarra CT surgery [facility]. documented in this encounterHolzer Medical Center – [place]05-09-2022 Evaluation note* Encounter Date Diagnosis Assessment Notes [...] him on to see Dr. Jonny Vigil. [facility] [employer] Other 05-04-2022 Miscellaneous Notes* Telephone Encounter - Haily Jovel [facility] - 10/19/2021 12:56 PM EDT Called [facility] Neuro Office spoke with Leslee. She states they have received patient records/referral and have patient scheduled to see Dr Narayan on 10/24. Haily Issa * Telephone Encounter - Asya Gramajo [facility] - 10/18/2021 10:34 AM EDT Records faxed. * Telephone Encounter - Haily Jovel [facility] - 10/13/2021 12:24 PM EDT Noelle: Information ready for you. Haily Issa * Telephone Encounter - Antonia Mcguire - 10/13/2021 10:33 AM EDT Referral to neurosurgery - Dr. Narayan or Talya Drake/Layo: Can you please refer patient and follow up? Thanks! Antonia Mcguire documented in this encounterHolzer Medical Center – [facility]04-28-2022 History of Present illness Narrative* Memo Cole MD - 10/13/2021 10:19 AM EDT Images from the original note were not included. NAME: Jovani Melendez [facility] NO.: [id number] DATE OF SERVICE: October 13, 2021 Some elements in this clinic note that are critical to medical decision making have been carefully reviewed and included from a prior clinic note dated:October 14, 2020 Referring Provider: Griselda Krause, DO Additional Clinicians involved in Jovani Melendez's care: Dr Kimberly Nichole ENT, Dr. 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 Reviewed scans and there is no evidence [...] adenopathy is identified. 4. 10/05/2021 MRI Brain [facility] Impression: 1. There is T2 and T2 [...] and neck (HCC) Memo Cole MD, CPE [facility] [place], [place] CC: Griselda Krause, DO [address] [address] [address] Kimberly NEWMAN ENT[address] Dr. Nichole ENT Dr. Ibarra AL surgery [facility]. documented in this encounterHolzer Medical Center – [facility]04-21-2022 Miscellaneous Notes* Telephone Encounter - Memo Cole [...] Krause thinks pt may need referral to [facility] Neuro but wanted to let Dr Mcgregor review and decide next steps. Asya Kumar RN documented in this encounterHolzer Medical Center – [facility]04-04-2022 Evaluation note* Encounter Date Diagnosis Assessment Notes [...] to continue with monitoring diet and exercise. [facility] Other 03-28-2022 Evaluation note* Encounter Date Diagnosis Assessment Notes Treatment Notes Treatment Clinical Notes Aug, Anxiety and depression (ICD-10 - F41.8) [facility] Other 01-13-2022 Evaluation note* Encounter Date Diagnosis Assessment Notes Treatment Notes Treatment Clinical Notes Jun, Sinusitis (ICD-10 - J32.9) I did prescribe the above medications and work note provided. [facility] Other 01-12-2022 Evaluation note* Encounter Date Diagnosis Assessment Notes Treatment Notes Treatment Clinical Notes Jun, Sinus pressure (ICD-10 - J34.89) Patient advised of negative results. Encouraged him to call if symtpoms persist or worsen, he verbalized understanding. [facility] Other 11-02-2021 Evaluation note* Encounter Date Diagnosis Assessment Notes Treatment Notes Treatment Clinical Notes Apr, Sinus congestion (ICD-10 - R09.81) [facility] Other 10-28-2021 Evaluation note* Encounter Date Diagnosis [...] Encouraged patient to continue with their efforts. [facility] Other 12-01-2016 History general Narrative - Reported* [...] surgery 02/04 19 Hospitalization History see above [facility] Other 12-01-2016 History general Narrative - Reported* [...] 02/04 19 Surgical History Spinal tap at [facility] 11/07/2021 Hospitalization History see above [facility] Other 12-01-2016 History general Narrative - Reported* [...] 02/04 19 Surgical History Spinal tap at [facility] 11/07/2021 Hospitalization History see above [facility] Other 12-01-2016 History general Narrative - Reported* [...] dissection 01/2019 Surgical History Spinal tap at [facility] 11/07/2021 Hospitalization History see above [facility] Other 12-01-2016 History general Narrative - Reported* [...] dissection 01/2019 Surgical History Spinal tap at [facility] 11/07/2021 Surgical History LP at [facility] 08/2022 Hospitalization History see above [facility] Other 12-01-2016 History general Narrative - Reported* [...] dissection 01/2019 Surgical History Spinal tap at [facility] 11/07/2021 Surgical History LP at [facility] 08/2022 Hospitalization History see above [facility] Other 12-01-2016 History general Narrative - Reported* [...] dissection 01/2019 Surgical History Spinal tap at [facility] 11/07/2021 Surgical History LP at [facility] 08/2022 Surgical History angioplasty right iliac artery 04/2023 Hospitalization History see above [facility] Other 05-19-2009 History of Present illness Narrative* [...] He saw Dr. Ba a neurologist in [facility]. * He describes his vision as seeing 1-1/2 . He describes this does not seem quite to but finding a time lab between moving his eyes and having the visual change. 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 Malignant neoplasm of head, face, and neck Lung nodules Other nonspecific abnormal finding of lung field Malignant neoplasm of head, face and neck (HCC) Malignant neoplasm of head, face, and neck documented in this encounter [facility] noteNo InformationNort [employer] Other Evaluation noteNo assessment information available [facility] Work Phone: Evaluation note* Diagnosis Onset Date Resolution Status Migraine acute [facility] Work Phone: Evaluation note* Diagnosis NPH (normal pressure hydrocephalus) (HCC)- Primary Idiopathic normal pressure hydrocephalus (INPH) documented in this encounter [facility]* Diagnosis 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HCC)- Primary NPH (normal pressure hydrocephalus) (HCC) Idiopathic normal pressure hydrocephalus (INPH) documented in this encounter [facility] note* Diagnosis 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HCC) NPH (normal pressure hydrocephalus) (HCC) Idiopathic normal pressure hydrocephalus (INPH) documented in this encounter [facility] note* Diagnosis Onset Date Resolution Status Anxiety and depression acute Essential hypertension acute Hyperlipidemia acute Osteoarthritis cervical spine acute PAD (peripheral artery disease) acute [facility] Work Phone: Hospital Discharge instructions Additional Instructions Obtain Elsy pot and perform nasal irrigations twice a dayMer[facility] Health [facility] Work Phone: Summary Purpose Family History No [...] Referral Specialty Diagnoses / Procedures Referred By Contac t Referred To Contact Neurosurgery Diagnoses Glioma of brain (HCC) Procedures CONSULT TO NEUROSURGERY OFFICE/OUTPATIENT CARE [facility] AT [facility] 60-74 MINUTES Memo Cole MD [address] [place] [address] [place] [address] Referral ID Status Reason Start Date Expiration Date Visits Requested Visits Authorized [id number] Authorized PCP Requested Referral 10/13/2021 10/13/2022 1 1 Specialty Diagnoses / Procedures Referred By Contac t Referred To Contact CT IMAGING Diagnoses Lung nodules Procedures CT CHEST W IVCON DIAGNOSTIC COMPUTED TOMOGRAPHY THORAX W/CONTRAST Memo Cole MD [address] [place] [address] [place] [address] Ct Imaging Referral ID Status Reason Start Date Expiration Date Visits Requested Visits Authorized [id number] Pending Review Auto-Generat ed Referral 10/30/2022 11/29/2022 1 1 Specialty Diagnoses / Procedures Referred By Contac t Referred To Contact CT IMAGING Diagnoses Malignant neoplasm of head, face and neck (HCC) Procedures CT NECK SOFT TISSUE W IVCON CT SOFT TISSUE NECK W/CONTRAST MATERIAL Memo Cole MD [address] [place] [address] [place] [address] Ct Imaging Referral ID Status Reason Start Date Expiration Date Visits Requested Visits Authorized [id number] Pending Review Auto-Generat ed Referral 10/30/2022 11/29/2022 1 1 Reason *FU 10/31 Evaluate and Treat Brainstem Lesion 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) Referral Organization [facility] Ne urosurgery Referring Provider First Name Sheng Referring Provider Last Name Wyatt Referring Provider Specialty Neurosurger y Referred Organization [facility] Referred Provider Jonny Vigil Referred Address [address] [facility] [place], [place],[address] Referred Provider Specialty Neurological Surgery Referral Priority Routine General Notes Linnea Alvarado 022 02:09:54 PM >Received and fax referral today Reason consult and treat (p t is willing to see him in [place], if not then will see at [facility]) 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) Diagnosis 2 Cervical pain (neck) (M54.2) Diagnosis 3 Pressure in head (R5 1.9) Referral Organization [facility] [place] Referring Provider First Name Griselda Referring Provider Last Name Nelida Referring Provider Specialty Family Prac henny Referred Organization [facility] Referred Provider Elvi Cadena Referred Address [address] [place], [place],[address] Referral Priority Routine Specialty Diagnoses / Procedures Referred By Roverto moraes Referred To Contact MR IMAGING Diagnoses 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HCC) Procedures MRI BRAIN WO/W IVCON MRI BRAIN BRAIN STEM W/O W/CONTRAST MATERIAL Kelton Perez, PADeanne [address] [place] [address] Mr Imaging Referral ID Status Reason Start Date Expiration Date Visits Requested Visits Authorized [id number] Authorized Auto-Generat ed Referral 09/20/2022 10/20/2023 1 1 Referral ID Status Reason Start Date Expiration Date V isits Requested Visits Authorized [id number] Closed Auto-Generate d Referral 09/20/2022 10/20/2023 1 1 Reason pt requesting n ot Dr. Verma, but can see other providers from that group evaluate and treat tinnitus and balance issues Diagnosis 1 Tinnitus of both ear s (H93.13) Diagnosis 2 Balance disorder (R2 6.89) Referral Organization [facility] Cardiology Referring Provider First Name Lilliam Referring Provider Last Name Kamla Referring Provider Specialty Cardiovascu lar Disease Referred Organization [facility] Referred Provider Manuela Ballesteros Referred Address ,[place], [place],[address] Referred Provider Specialty Ear, Nose an d Throat Referral Priority Routine General Notes Yessica Brown 12:40:36 PM >received today, pt has medicaid insurance, will send to Dr. Ballesteros, attachments made, waiting for notes to be locked Reason consult and treat Diagnosis 1 PAD (peripheral arnie ry disease) (I73.9) Referral Organization [facility] [place] Referring Provider First Name Griselda Referring Provider Last Name Nelida Referring Provider Specialty [facility] Prac henny Referred Organization [facility] Vascular Surge ry Referred Provider Filipe Hess Referred Address [address] [facility],[place], [place],[address] Referred Provider Specialty Vascular Abdirahman yvon Referral [...] section and content) DATE CREATED AUTHOR 08/01/2019 [facility] DATE CREATED AUTHOR AUTHOR'S ORGANIZ ATION 11/05/2021 [employer] DATE CREATED AUTHOR AUTHOR'S ORGANIZ ATION 01/19/2022 [facility] DATE CREATED AUTHOR AUTHOR'S ORGANIZ ATION 10/02/2022 [facility] DATE CREATED AUTHOR AUTHOR'S ORGANIZ ATION 10/31/2022 [facility] DATE CREATED AUTHOR AUTHOR'S ORGANIZ ATION 12/25/2022 [facility] DATE CREATED AUTHOR AUTHOR'S ORGANIZ ATION 02/15/2023 [facility] DATE CREATED AUTHOR AUTHOR'S ORGANIZ ATION 07/27/2023 [facility] DATE CREATED AUTHOR AUTHOR'S ORGANIZ ATION 08/03/2023 [facility] DATE CREATED AUTHOR AUTHOR'S ORGANIZ ATION 08/17/2023 [facility] DATE CREATED AUTHOR AUTHOR'S ORGANIZ ATION 08/31/2023 [facility] EPIC Source Comments (unrecognize d section and content) In the event this informatio n is protected by the Federal Confidentiality of Alcohol and Drug Abuse Patient Records regulations: The Federal rules restrict any use of the information to criminally investigate or prosecute any alcohol or drug abuse patient.[facility] the event this information is protected by the Federal Confidentiality of Alcohol and Drug Abuse Patient Records regulations: The Federal rules restrict any use of the information to criminally investigate or prosecute any alcohol or drug abuse patient.[facility] the event this information is protected by the Federal Confidentiality of Alcohol and Drug Abuse Patient Records regulations: The Federal rules restrict any use of the information to criminally investigate or prosecute any alcohol or drug abuse patient.[facility] the event this information is protected by the Federal Confidentiality of Alcohol and Drug Abuse Patient Records regulations: The Federal rules restrict any use of the information to criminally investigate or prosecute any alcohol or drug abuse patient.[facility] the event this information is protected by the Federal Confidentiality of Alcohol and Drug Abuse Patient Records regulations: The Federal rules restrict any use of the information to criminally investigate or prosecute any alcohol or drug abuse patient.[facility] the event this information is protected by the Federal Confidentiality of Alcohol and Drug Abuse Patient Records regulations: The Federal rules restrict any use of the information to criminally investigate or prosecute any alcohol or drug abuse patient.[facility] the event this information is protected by the Federal Confidentiality of Alcohol and Drug Abuse Patient Records regulations: The Federal rules restrict any use of the information to criminally investigate or prosecute any alcohol or drug abuse patient.[facility] the event this information is protected by the Federal Confidentiality of Alcohol and Drug Abuse Patient Records regulations: The Federal rules restrict any use of the information to criminally investigate or prosecute any alcohol or drug abuse patient.[facility] the event this information is protected by the Federal Confidentiality of Alcohol and Drug Abuse Patient Records regulations: The Federal rules restrict any use of the information to criminally investigate or prosecute any alcohol or drug abuse patient.[facility] Reason for Visit (unrecogniz ed section and content) Reason Comments Results Reason Comments Head and Neck Cancer Specialty Diagnoses / Procedures Referred By Contac t Referred To Contact Hematology/Oncology / HEMATOLOGY/ONCOLOGY Diagnoses Follow-up examination 1 year follow up LABS WITH CT Procedures EST PATIENT Memo Cole MD [address] [place] [address] Memo Cole MD [address] [place] [address] [place] [address] Referral ID Status Reason Start Date Expiration Date Visits Re quested Visits Authorized [id number] Closed 10/13/2021 06/17/2022 1 1 Reason Comments Referral Information Neurosurgery Reason Comments Established Patient Specialty Diagnoses / Procedures Referred By Contac t Referred To Contact Hematology/Oncology / HEMATOLOGY/ONCOLOGY Diagnoses 2 week phone follow up [phone] Procedures PHYS/QHP TELEPHONE EVALUATION 5-10 MIN PROVIDER SPECIALTY PHONE CALL Memo Cole MD [address] [place] [address] [place] [address] Memo Cole MD [address] [place] [address] [place] [address] Referral ID Status Reason Start Date Expiration Date Visits Re quested Visits Authorized [id number] Closed 10/27/2021 06/17/2022 1 1 Reason Comments Triage Internal Referral--o ld Reason Comments Appointment Reason Comments New Patient Specialty Diagnoses / Procedures Referred By Contac t Referred To Contact Neurology / BRAIN TUMOR Diagnoses Hydrocephalus (HCC) Hydrocephalus Procedures OFFICE/OUTPATIENT NEW MODERATE MDM 45-59 MINUTES NEW SURGICAL Elvi Cadena MD [address] [place] [address] Kelton Perez, PADeanne [address] [facility] [place] [address] Referral ID Status Reason Start Date Expiration Date Visits Re quested Visits Authorized [id number] Closed 09/13/2022 06/17/2023 1 1 Reason Comments Patient Question Reason Comments Radiology MRI Specialty Diagnoses / Procedures Referred By Contac t Referred To Contact MR IMAGING Diagnoses 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HCC) Procedures MRI BRAIN WO/W IVCON MRI BRAIN BRAIN STEM W/O W/CONTRAST MATERIAL Kelton Perez PA-C [address] [place] [address] Mr Imaging Referral ID Status Reason Start Date Expiration Date V isits Requested Visits Authorized [id number] Closed Auto-Generate d Referral 09/20/2022 10/20/2023 1 1 Care Teams (unrecognized sec tion and content) President And Ceo Relationship Specialty Start Date End Date Griselda Krause [address] [place], [place] [id number] PCP - General Family Practice 11/20/18 Griselda Krause [address] [place], [place] [phone] Referring Family Practice 11/20/18 President And Ceo Relationship Specialty Start Date End Date Griselda Krause [address] [place], [place] [id number] PCP - General Family Practice 11/20/18 Griselda Krause [address] [place] [phone] Referring Family Practice 11/20/18 President And Ceo Relationship Specialty Start Date End Date Griselda Krause [address] [place], [place] [phone] PCP - General Family Practice 11/20/18 Griselda Krause [address] [place] [address], [place] [address] Referring Family Practice 11/20/18 President And Ceo Relationship Specialty Start Date End Date Griselda Krause [address] [place] [address], [place] [address] PCP - General Family Practice 11/20/18 Griselda Krause [address] [place] [address], [place] [address] Referring Family Practice 11/20/18 President And Ceo Relationship Specialty Start Date End Date Griselda Krause [address] [place] [address], [phone] PCP - General Family Medicine 11/20/18 Griselda Krause [address] [place] [address], [phone] Referring Family Medicine 11/20/18 President And Ceo Relationship Specialty Start Date End Date Griselda Krause [address] [place] [address], [phone] PCP - General Family Medicine 11/20/18 Griselda Krause [address] [place] [address], [place] [address] Referring Family Medicine 11/20/18 Team Status: Inactive Member Role Status Dates Griselda Krause DO Primary Care Provider Active Daniel Gaytan APRN Emergency Provider Active Team Status: Active Member Role Status Dates Griselda Krause , DO Primary Care Provider Active Elvi Cadena MD Attending Provider Active Team Status: Active Member Role Status Dates Griselda Krause , DO Primary Care Provider Active Team Status: Inactive Member Role Status Dates Griselda Krause DO Primary Care Provider Active Loi Wong Jr, MD Emergency Provider Active Team Status: Active Member Role Status Dates Griselda Krause , DO Primary Care Provider Active Nikole Thomason APRN [employer] Attending Provider A ctive Team Status: Inactive Member Role Status Dates Griselda Krause DO Primary Care Provider Active Elvi Cadena MD Attending Provider Active Team Status: Inactive Member Role Status Dates Griselda Krause DO Primary Care Provider Active Nikole Thomason APRN [employer] Attending Provider A ctive President And Ceo Relationship Specialty Start Date End Date Griselda Krause [address] [place] [address], [place] [address] PCP - General Family Medicine 11/20/[address] [place] [address] Referring Family Medicine 11/20/18 Elvi Cadena MD [address] [facility] [address] [address] Referring Neurology 08/18/22 President And Ceo Relationship Specialty Start Date End Date Griselda Krause [address] [place] [address], [place] [address] PCP - General Family Medicine 11/20/[address] [place] [address] Referring Family Medicine 11/20/18 Elvi Cadena MD [address] [facility] [address] [address] Referring Neurology 08/18/22 President And Ceo Relationship Specialty Start Date End Date Griselda Krause [address] [place] [address], [place] [address] PCP - General Family Medicine 11/20/[address] [place] [address] Referring Family Medicine 11/20/18 Elvi Cadena MD [address] [facility] [place] [address] Referring Neurology 08/18/22 Team Status: Inactive Member Role Status Dates Griselda Krause , DO Primary Care Provider, Attending Provi skye Active Team Status: Inactive Member Role Status Dates Griselda Krause , DO Primary Care Provider Active Lima Joseph MD Attending Provider Active Team Status: Inactive Member Role Status Dates Griselda Krause , DO Primary Care Provider Active Rohit Agrawal , DO Emergency Provider Active Team Status: Inactive Member Role Status Dates Griselda Krause , DO Primary Care Provider Active Lilliam Cason MD Attending Provider Active Team Status: Inactive Member Role Status Dates Griselda Krause , Primary Care Provider Active Ruddy Harvey MD Attending Provider Active President And Ceo Relationship Specialty Start Date End Date Griselda rKause DO [address] [place] [address] PCP - General Family Medicine 02/13/23 President And Ceo Relationship Specialty Start Date End Date Griselda Krause DO [address] [place] [address] PCP - General Family Medicine 02/13/23 Team Status: Inactive Member Role Status Dates Griselda Krause DO Primary Care Provider Active Sta rt: May 04, 2023 End: May 04, 2023 Nikole Thomason APRN [employer] Attending Provider Active Start: April End: May 04, 2023 Team Status: Inactive Member Role Status Dates Griselda Krause DO Primary Care Provider Active Sta rt: May 07, 2023 End: May 07, 2023 Ruddy Harvey MD Attending Provider Active Start: May 07, 2023 End: May 07, 2023 Team Status: Inactive Member Role Status Dates Lilliam Cason MD Attending Provider Active Sta rt: May 15, 2023 End: May 15, 2023 Team Status: Inactive Member Role Status Dates Ruddy Harvey MD Attending Provider Active Start: May 30, 2023 End: May 30, 2023 Team Status: Inactive Member Role Status Dates Griselda Krause DO Primary Care Provider Active Sta rt: May 30, 2023 End: May 30, 2023 Ruddy Harvey MD Attending Provider Active Start: May 30, 2023 End: May 30, 2023 Team Status: Inactive Member Role Status Dates Griselda Krause DO Attending Provider Active Start: May 31, 2023 End: May 31, 2023 Team Status: Inactive Member Role Status Dates Griselda Krause DO Attending Provider Active Start: July 02, 2023 End: July 02, 2023 Team Status: Inactive Member Role Status Dates Griselda Krause DO Primary Care Provide r, Attending [...] BE BASED ON THE PRIMARY CLINICAL RECORDS. [facility] [employer] provides no warranty or guarantee of the accuracy or completeness of information in this document.
[2023-09-03 07:39] VITALS: BP 174/98; PULSE 67; RESP 16; TEMP 36.6; O2SAT 99
--- NOTE | 2023-09-03 08:31 | P.ON_ITS ---
Date of procedure: 09/03/23 Pre-op diagnosis: Left shoulder pain Post-op diagnosis: same as pre-op Procedure: Procedure: Left suprascapular and axillary nerve block Medications: Bupivacaine 0.25% 2cc, kenalog 40mg The patient was seen and examined in the preoperative holding area. Informed consent was obtained and placed on the chart.? The patient was brought to the medical procedure unit and placed in the prone position. A timeout was completed verifying correct patient, procedure site, positioning, plan, and special equipment.? Using aseptic technique, under direct fluoroscopic visualization, a 25-gauge 3-1/2 inch spinal needle was advanced to the superior portion of the left posterior osseous rim of the glenoid fossa, lateral and superior to the spinal glenoid notch.? 0.5 cc of the above solution was injected.? The needle was then redirected 3 mm inferiorly and another 0.5 cc of the above medication was injected.? This needle was then removed.? Using aseptic technique, under direct fluoroscopic visualization, another 25-gauge 3-1/2 inch spinal needle was advanc ed toward the most inferior and lateral border of the greater tubercle.? 0.5 cc of the above medication was administered.? The needle was then redirected 3 mm inferiorly.? 0.5 cc was administered in this region.? This needle was removed.? The same procedure, with the same steps, was then repeated on the opposite side.? ? The patient was taken to the postprocedural recovery area and monitored for an appropriate length of time before being found suitable for discharge in the accompaniment of a responsible adult. Anesthesia: Local Surgeon: Sarina Ramsey Pathology: none sent Condition: stable Disposition: no change
[2023-09-03 08:32] VITALS: BP 152/75; BP 153/74; PULSE 66; PULSE 68; RESP 18; O2SAT 96; O2SAT 97
[2023-09-03] MEDS: BUPIVACAINE HCL 0.25% PF 25 MG/10 ML VIAL INJ (08:35)
[2023-09-03] MEDS: TRIAMCINOLONE ACETONIDE 40 MG/ML VIAL INJ (08:35)
[2023-09-03] MEDS: LIDOCAINE HCL 2% PF 100 MG/5 ML VIAL 3 ML INJ (08:35)
== END 2023-09-03 08:36 | disposition home or self-care (01) ==
LOC: SURGOUT 07:27
PROVIDERS: PCP Family Medicine; Visit Provider Anesthesiology
DX: M25.512 Pain in left shoulder (principal)
CPT/HCPCS: 64417; 64418

== ENCOUNTER 2023-09-12 10:10 | Outpatient (OUT) | payer OTHER, SELFPAY ==
--- OUTSIDE RECORDS SUMMARY | 2023-09-12 10:25 | XMS_ITS | CCD ---
Author Organization [facility] Care Team Providers Care Steam Box Tender Name Role Phone Griselda Krause Primary Care Provider Griselda Krause Attending Provider Griselda Krause Unavailable Unavailable Unavailable Griselda Krause Unavailable Sheng Schneider Unavailable Griselda Krause Primary Care Provider Griselda Krause Unavailable DO Griselda Krause Primary Care Provider MD Elvi Cadena Attending Provider BAILEY Gaytan Emergency Provider [phone] MD Loi Wong Jr Emergency Provider Unavailable Unavailable DO Griselda Krause Primary Care Provider MD Elvi Cadena Attending Provider BAILEY Gaytan Emergency Provider MD Loi Wong Jr Emergency Provider BAILEY Thomason Attending Provider BAILEY Thomason Attending Provider DO Griselda Krause Primary Care Provider MD Elvi Cadena Attending Provider Trish Carney Unavailable Griselda Krause Primary Care Provider Kungideon, Griselda Wright Unavailable Elvi Cadena MD Unavailable DEMOND CAT Attending Unavailable DEMOND CAT Admitting Unavailable KUNS, GRISELDA WRIGHT Primary Care Unavailable Kuns, DO Camara Primary Care Provider Nelida, DO Camara Attending Provider NELIDA, GRISELDA WRIGHT Primary Care Unavailable MEMO COLE Referring Unavailable ARSENIO JACKSON Attending Unavaila ble GRISELDA KRAUSE Referring Unavailable NELIDA, GRISELDA WRIGHT Primary Care Unavailable KELTON PEREZ Referring Unavailable KUNS, GRISELDA WRIGHT Primary Care Unavailable ELVI CADENA Referring Unavailable KELTON PEREZ Attending Unavailable KUNS, GRISELDA WRIGHT Primary Care Unavailable MD Lima Joseph Attending Provider Dr. BRET HDEZ Attending Unavailable PCP, OTHER Primary Care Unavailable PCP, Other Primary Care Physician Dr. Griselda Krause Primary Care Unavailabl e Nelida, DO Camara Primary Care Provider [phone] BAILEY Gaytan Emergency Provider elli, DO Rohit Mullins Emergency Provider Nelida, DO Camara Attending Provider Lilliam Cason Unavailable Nelida, DO Camara Primary Care Provider [phone] BAILEY Gaytan Emergency Provider elli, DO Rohit Mullins Emergency Provider [phone] DO Griselda Krause Attending Provider [phone] MD Lilliam Cason Attending Provider [phone] Ruddy Harvey Unavailable BAILEY Thomason Attending Provider MD Ruddy Harvey Attending Provider Kuns, DO Griselda Primary Care Provider Kuns DO, Griselda R Primary Care Provider [phone] Kuns, DO Griselda Primary Care Provider ADDIS JUAREZ Attending Unavailable ADDIS JUAREZ Referring Unavailable KUNS, GRISELDA R Primary Care Unavailable ADDIS JUAREZ Attending Unavailable ADDIS JUAREZ Referring Unavailable KUNS, GRISELDA R Primary Care Unavailable Kuns, Griselda Primary Care Unavailable Ruddy Harvey T Admitting Unavailabl e Langdoris, Ruddy Moraes Attending Unavailabl e Kuns, Griselda Primary Care Unavailable Kuns, Griselda Attending Unavailable Kuns, Griselda Admitting Unavailable Kuns, Griselda Primary Care Unavailable KamlaNamrata juareza Admitting Unavailable KamlaNamarta liraa Attending Unavailable Kuns, Griselda Primary Care Unavailable Nikole Thomason Admitting Unavailab Nikole Owens Attending Unavailab le Kuns, Griselda Primary Care Unavailable Wes, Ruddy T Admitting Unavailabl e Wes, Ruddy Moraes Attending Unavailabl e Rohit Agrawal Attending Unavailable Kuns, Griselda Primary Care Unavailable Rohit Agrawal Admitting Unavailable Daniel Gaytan Attending Unavailable Kuns, Griselda Primary Care Unavailable Daniel Gaytan Admitting Unavailable Kuns, Griselda Primary Care Unavailable Langdoris, Ruddy T Admitting Unavailabl e Wes, Ruddy T Attending Unavailabl e Andreas, Griselda Attending Unavailable Kuns, Griselda Admitting Unavailable Kuns, Griselda Primary Care Unavailable Lima Joseph Admitting Unavailable Lima Joseph Attending Unavailable Kuns, Griselda Primary Care Unavailable Kuns, DO Griselda Primary Care Provider MD Ruddy Harvey Attending Provider [phone] Roxy NORRIS, Boubacarrius Badillo Attending Unavailable Roxy NORRIS, Andrius Aby Attending Unavailable Roxy NORRIS, Andrius Erickaytsharla Attending Unavailable Roxy NORRIS, Andrius Aby Attending Unavailable NIKOLE THOMASON Attending Unavailab NIKOLE Owens Attending Unavailab NIKOLE Owens Referring Unavailab NIKOLE Owens Attending Unavailab NIKOLE Owens Attending Unavailab NIKOLE Owens Attending Unavailab JEREMY Echevarria Attending Unavailable NIKOLE THOMASON Attending UnavailJEREMY [place] Referring Unavailable Unavailable Unavailable Unavailable Allergies Allergy Classification Reported Allergen(s) Allergy Type Date of Onset Reaction(s) Facility Cephalosporins (antibiotic) (1 source) Cephalexin Drug Allergy 04-29-2018 [facility] (20 sources) Cephalexin; Translations: [CEPHALEXIN] Drug Allergy 04-29-2018 [facility] (20 sources) Cephalexin; Translations: [Keflex] Drug Allergy [facility] Other (1 source) Cephalexin; Translations: [facility] [place] [facility]: Highlighted row has been ruled out! (1 source) natural latex rubber; Translations: [LATEX, NATURAL RUBBER] Drug allergy (disorder) [facility] [place] NEGATED: Highlighted row has been ruled out! (1 source) No IV Contrast Allergy.; Translations: [IV Dye, Iodine Containing] Drug allergy (disorder) [facility] [place] Medications Current Medications Medication Drug Class(es) Dates Sig (Normalized) Sig (Original) acetaminophen 325 mg / HYDROcodone bitartrate 5 mg oral tablet (20 sources) Opioid Agonist Start: 09-05-2023 take 1 tablet by mouth every eight hours Hydrocodone-Aceta minophen Active TAB PO Every 8 hours September 05, 2023 12:00am Start: 12-10-2017 End: 04-29-2018 take 1 tablet by mouth every four hours Hydrocodone-Acetaminophen ([place]) 5-325 mg tablet Discontinued 1 TAB PO Q4H December 10, 2017 April 29, 2018 3:12pm amLODIPine 10 mg oral tablet (20 sources) Dihydropyridine Calcium Channel Clara Start: 09-05-2023 take 10 mg by mouth once daily Amlodipine Active 10 MG PO Daily 30 September 05, 2023 12:00am Start: 03-15-2023 End: 09-05-2023 take 1 tablet by mouth once daily Amlodipine Discontinued 5 MG PO Daily August 02, 2023 1:00am September 05, 2023 2:21pm FreeTextSi tablet Orally Once a day; Note: Source Status: Continue; Provider: Nelida Driver aspirin 81 mg delayed release oral tablet (20 sources) Platelet Aggregation Inhibitor, Nonsteroidal Anti-inflammatory Drug Start: 08-02-2023 take 81 mg by mouth once daily Aspirin Active 81 MG PO Daily August 02, 2023 1:00am Start: 07-17-2022 End: 08-02-2023 take 81 mg by mouth once daily Aspirin Discontinued 81 MG PO Daily July 17, 2022 1:00am August 02, 2023 1:45pm ASPIRIN 81 PO As pir-81 0 Active [...] 07/20/2023 Active brexpiprazole 1 mg oral tablet (11 sources) Atypical Antipsychotic Start: 08-02-2023 take 0.5 mg by mouth once daily Brexpiprazole Active 0.5 MG PO Daily August 02, 2023 2:09pm Start: 08-02-2023 End: 08-02-2023 take 1 tablet by mouth once daily Brexpiprazole Discontinued 1 MG PO Daily August 02, 2023 1:00am August 02, 2023 2:10pm FreeTextSi tablet Orally Once a day; Note: [...] for 7 days samples provided May, Active clopidogrel 75 mg oral tablet (17 sources) [id number] Platelet Inhibitor Start: 05-07-2023 End: 08-02-2023 take 1 tablet by mouth once daily Clopidogrel (Plavix) 75 mg tablet Active 75 MG PO Daily August 02, 2023 1:00am FreeTextSi tablet Orally Once a day; Note: Source Status: Taking; Provider: Nelida Camara ( ) dexamethasone 2 mg oral tablet (2 sources) Corticosteroid Start: 06-14-2023 dexAMETHasone (Decadron) 2 MG tablet Indications: Cervical [...] mg oral tablet (20 sources) Antihistamine Start: 09-05-2023 take 1-2 tablets by mouth once daily at bedtime Hydroxyzine Hcl Active MG PO Daily at bedtime September 05, 2023 1:34pm FreeTextSi-2 tablets Orally HS as needed; Note: Source Status: Taking; Provider: Nelida Driver Start: 08-02-2023 End: 09-05-2023 take 1-2 tablets by mouth at bedtime as needed Hydroxyzine Hcl Discontinued MG PO August 02, 2023 1:00am September 05, 2023 1:37pm FreeTextSi-2 tablets Orally HS as needed; Note: Source Status: Taking; Provider: Nelida Driver Start: 05-26-2022 End: 08-02-2023 take 25 mg by mouth at bedtime Hydroxyzine Hcl Discont inued 25 MG PO Bedtime July 17, 2022 1:00am August 02, 2023 1:48pm Comment on above: take 1 to 2 tablets by mouth at bedtime if needed ibuprofen 800 mg oral tablet (20 sources) Nonsteroidal Anti-inflammatory Drug Start: End: take 1 tablet by mouth three times daily at mealtime as needed Ibuprofen Active 800 MG PO Three times daily September 05, 2023 1:35pm FreeTextSi tablet with food or milk as needed Orally Three times a day; Note: Source Status: TakingPRN; Provider: Nelida Camara ( ) Start: 04-17-2022 End: 07-17-2022 take 600 mg by mouth every eight hours Ibuprofen Discontinued 600 MG PO Q8H April 17, 2022 12:00am July 17, 2022 9:01am take 1 tablet by myles th three [...] in the MR contrast administration guidelines link lisinopril 5 mg oral tablet (2 sources) Angiotensin Converting Enzyme Inhibitor Start: 09-05-19 take 5 mg by mouth once daily Lisinopril Active 5 MG PO Daily September 05, 2023 12:00am mirtazapine 15 mg oral tablet (20 sources) Start: 08-02-19 End: 09-05-19 24 take 0.5 tablet by mouth once daily at bedtime Mirtazapine Active MG PO Daily at bedtime September 05, 2023 1:35pm FreeTextSi/2 tablet at bedtime Orally Once a [...] mg by mouth at bedtime Mirtazapine Discontinu 7.5 MG PO Bedtime July 17, 2022 1:00am August 02, 2023 1:49pm Comment on above: Take by mouth daily [...] a day Active Multivitamin (Multiple Vitamins) tablet (4 sources) Start: take 1 tablet by mouth once daily Multivitamin (Multiple Vitamins) tablet Active 1 TAB PO Daily August 02, 2023 1:00am Start: 08-02-2023 take 1 tablet by myles once daily Multivitamin (Multiple Vitamins) tablet Active 1 TAB PO Daily August 02, 2023 12:00am pravastatin sodium 40 mg oral tablet (3 sources) HMG-CoA Reductase Inhibitor Start: 05-15-2023 take 1 tablet by mouth every twenty-four hours Pravastatin Sodium 40 MG 1 tablet Orally Once a day for 90 days Apr, Active tiZANidine 4 mg oral tablet (20 sources) Central alpha-2 Adrenergic Agonist Start: 08-02-2023 take 1 tablet by mouth once daily at bedtime Tizanidine (Zanaflex) 4 mg tablet Active 4 MG PO Daily at bedtime August 02, 2023 1:00am FreeTextSi tablet as needed Orally at bedtime; Note: Source Status: Taking; Provider: Satish Rogers Start: 01-30-2023 take 1 capsule by mo [facility] twice daily tiZANidine (Zanaflex) 4 MG capsule Indications: Cervical stenosis of spinal canal tizanidine 4 mg capsule take 1 capsule by mouth twice a day if needed for MUSCLE SPASTICITY 60 capsule 11 01/30/2023 Active Start: 04-17-2022 End: 07-17-2022 take 4 mg by mouth twice daily Tizanidine Discontinued 4 MG PO Twice daily April 17, 2022 12:00am July 17, 2022 9:02am Start: 04-06-2022 End: 08-02-2023 take 8 mg by mouth at bedtime Tizanidine Discontinued 8 MG PO Bedtime April 06, 2022 12:00am August 02, 2023 1:50pm Start: 04-06-2022 take 1 tablet by myles th every twenty-four hours as needed tiZANidine (ZANAFLEX) [...] / codeine phosphate 30 mg oral tablet (6 sources) Opioid Agonist Start: 05-07-2023 End: 08-02-2023 take 1 tablet by mouth twice daily Acetaminophen-Code ine Discontinued 1 TAB PO Twice daily May 07, 2023 1:00am August 02, 2023 1:44pm acetaminophen 325 mg / oxyCODONE hydrochloride 5 mg oral tablet (20 sources) Opioid Agonist Start: 04-17-2022 End: 07-17-2022 take 1 tablet by mouth every six hours Oxycodone-Acetamin ophen (Percocet) 5-325 mg tablet Discontinued 1 - 2 TAB PO Every 6 hours 05 10April 17, 2022 July 17, 2022 9:01am acetaZOLAMIDE 250 mg oral tablet (11 sources) [...] AFTERNOON and 2 at bedtime as directed [id number] actuat albuterol 0.09 mg/actuat metered dose inhaler (7 sources) beta2-Adrenergic Agonist Start: End: take 1 puff(s) by inhalation every four hours as needed Albuterol Sulfate Discontinued 1 PUFF INHALATION Every 4 hours August 02, 2023 1:00am August 02, 2023 1:45pm FreeTextSi puff as needed Inhalation every 4 [...] mg / clavulanate 125 mg oral tablet (11 sources) Penicillin-class Antibacterial Start: 02-27-20 End: 05-07-20 take 1 tablet by mouth twice daily Amoxicillin-Pot Clavulanate Discontinued 1 TAB PO Twice daily February 26, 2023 12:00am May 07, 2023 9:23am atorvastatin 10 mg oral tablet (20 sources) [...] cream (20 sources) Azole Antifungal, Corticosteroid Start: 03-08-20 End: 08-02-19 Clotrimazole-Betamet hasone Discontinued 1 APPLIC TOPICAL Twice daily August 02, 2023 1:00am August 02, 2023 1:47pm FreeTextSi application Externally Twice a day; Note: Source Status: Not-Taking\PRN; Refills: 1; Qty: 45 grams; Provider: Nelida Driver 12 hr buPROPion hydrochloride 150 mg extended release oral tablet (9 sources) Aminoketone Start: 02-29-20 take 1 tablet by mouth twice daily buPROPion SR (WELLBUTRIN SR) 150 mg 12 hr tablet Take 1 tablet by mouth twice daily. 60 tablet 2 02/28/2019 Active Comment on above: Take 1 tablet by myles th twice daily. citalopram 20 mg oral tablet (20 sources) Serotonin Reuptake Inhibitor Start: 12-27-19 End: 08-02-19 take 20 mg by mouth once daily Citalopram Discontinued 20 MG PO Daily April 06, 2022 12:00am August 02, 2023 1:46pm Start: 10-22-2018 take 1 tablet by myles th once daily citalopram (CELEXA) 40 mg tablet Take 40 mg by mouth once daily. 0 10/22/2018 Active Start: 12-10-2017 End: 04-29-2018 take 20 mg by mouth once daily Citalopram Discontinued 20 MG PO Daily December 10, 2017 12:00am April 29, 2018 3:12pm Comment on above: Take 40 mg by mouth once daily. cyclobenzaprine hydrochloride 10 mg oral tablet (10 sources) Muscle Relaxant Start: End: take 10 mg by mouth three times daily Cyclobenzaprine Discontinued 10 MG PO Three times daily March 21, 2023 12:00am May 07, 2023 9:22am doxycycline monohydrate 100 mg oral capsule (9 sources) Tetracycline-class Drug Start: take 1 capsule by mouth every twelve hours doxycycline monohydrate (MONODOX) 100 mg capsule TAKE 1 CAPSULE BY MOUTH EVERY 12 HOURS FOR 10 DAYS 0 11/05/2018 Active Comment on above: TAKE 1 CAPSULE BY MO UT EVERY 12 HOURS FOR 10 DAYS DULoxetine 20 mg delayed release oral capsule (4 sources) Serotonin and Norepinephrine Reuptake Inhibitor take 1 capsule by mouth every twelve hours Cymbalta 20 MG 1 capsule Orally Twice a day Not-Taking ezetimibe 10 mg oral tablet (14 sources) Dietary Cholesterol Absorption Inhibitor Start: End: Ezetimibe Discontinued MG PO September 05, 2023 12:00am September 05, 2023 1:34pm Start: 08-02-2023 End: 08-02-2023 take 1 tablet by mouth every week Ezetimibe Discontinued MG PO August 02, 2023 1:00am August 02, 2023 1:47pm FreeTextSi tablet Orally 2 days per week; [...] 100 MG PO Daily August 02, 2023 1:00am August 02, 2023 1:47pm FreeTextSi capsule Orally Once a day; Note: Source Status: Not-Taking\PRN; Provider: Nelida Camara ( ) Start: 04-16-2023 End: 08-02-2023 take 300 mg by mouth three times daily Gabapentin Discontinued 300 MG PO Three times daily May 07, 2023 1:00am August 02, 2023 1:47pm Start: 02-27-2019 take 1 capsule by mo ut three times daily gabapentin (NEURONTIN) 300 mg capsule Take 1 capsule by mouth three times daily for 30 days. 90 capsule 0 02/27/2019 Active take 1 capsule by mo ut every twenty-four hours Gabapentin 100 MG 1 capsule Orally Once a day Not-Taking/PRN Comment on above: Take 1 capsule by mo ut three times daily for 30 days. indomethacin 75 mg extended release oral capsule (20 sources) Nonsteroidal Anti-inflammatory Drug Start: 08-02-19 End: 08-02-19 take 1 capsule by mouth once daily at mealtime Indomethacin Discontinued 75 MG PO Daily August 02, 2023 1:00am August 02, 2023 1:48pm FreeTextSi capsule with food Orally Once a day; Note: Source Status: Not-Taking\PRNprn; Provider: Nelida Camara ( ) Start: 07-17-2022 End: 08-02-2023 take 25 mg by mouth once daily Indomethacin Discontinu ed 25 MG PO Daily July 17, 2022 1:00am August 02, 2023 1:48pm take 1 capsule by mo ut once daily at mealtime indomethacin SR (Indocin SR) 75 MG ER capsule indomethacin ER 75 mg capsule,extended release take 1 capsule by mouth once daily with food 0 Active take 1 capsule by mo uth every twenty-four hours Indomethacin ER 75 MG 1 capsule with food Orally Once a day prn Active Ketorolac (20 sources) Nonsteroidal Anti-inflammatory Drug, Cyclooxygenase Inhibitor Start: 01-27-2015 Toradol per 15 mg Jan, 2 mL meclizine hydrochloride 25 mg oral tablet (20 sources) Antiemetic Start: 04-29-2018 End: 04-06-2022 take 25 mg by mouth three times daily Meclizine Discontinued 25 MG PO Three times daily April 29, 2018 1:00am April 06, 2022 4:26pm Methylprednisolone (19 sources) Corticosteroid Start: 08-02-2023 End: 08-02-2023 Methylprednisolone Discontinued MG PO As Directed August 02, 2023 1:00am August 02, 2023 1:48pm FreeTextSig: as directed Orally as directed; Note: Source Status: Start1 pack; Refills: 0; Provider: Nelida Driver Start: 08-02-2023 End: 08-02-2023 Methylprednisolone Discontin ued MG PO As Directed August 02, 2023 [...] 10 MG PO Daily August 02, 2023 1:00am August 02, 2023 2:10pm FreeTextSi tablet Orally Once a day; Note: Source Status: Taking; Provider: Nelida Camara ( ) Comment on above: Take 10 mg by mouth daily at bedtime. Multivitamin capsule (9 sources) take 1 capsule by mouth once daily Multivitamin capsule Take 1 capsule by mouth once daily. 0 Active Comment on above: Take 1 capsule by [facility] once daily. naproxen 500 mg oral tablet (20 sources) Nonsteroidal Anti-inflammatory Drug Start: 12-10-2017 End: 04-29-2018 take 500 mg by mouth twice daily at mealtime Naproxen Discontinued 500 MG PO Twice daily December 10, 2017 12:00am April 29, 2018 3:12pm administer with food or milk olmesartan medoxomil 20 mg oral tablet (6 sources) Angiotensin 2 Receptor Clara Start: 05-07-2023 End: 08-02-2023 Olmesartan Discontinued MG TABLET May 07, 2023 1:00am August 02, 2023 1:50pm predniSONE 10 mg oral tablet (20 sources) Start: 03-21-2023 End: 05-07-2023 take 60 mg by mouth once daily at mealtime Prednisone Discontinued 60 MG PO Daily March 21, 2023 12:00am May 07, 2023 9:24am administer with food or milk Start: 04-06-2022 End: 07-17-2022 take 40 mg by mouth once daily at mealtime Prednisone Discontinued 40 MG PO Daily April 06, 2022 12:00am July 17, 2022 9:01am administer with food or milk promethazine hydrochloride 25 mg oral tablet (20 sources) Phenothiazine Start: 04-29-2018 End: 04-06-2022 take 25 mg by mouth every six hours Promethazine Discontinued 25 MG PO Q6H September 08, 2021 12:00am April 06, 2022 4:26pm take 1 tablet by myles th every twelve hours Promethazine HCl 25 MG 1 tablet as neede d Orally every 12 hrs Active rimegepant 75 mg disintegrating oral tablet (20 sources) Start: 04-06-2022 End: 07-17-2022 Rimegepant (Nurtec Odt) 75 m g tablet,disintegrating Discontinued 75 MG PO Q48H April 06, 2022 12:00am July 17, 2022 9:02am take 1 tablet by mouth once liyah y Nurtec 75 MG 1 tablet on the tongue and allow to dissolve Orally Ever Other Day Active rosuvastatin calcium 5 mg oral tablet (8 sources) HMG-CoA Reductase Inhibitor Start: 08-02-2023 End: 08-02-2023 take 1 tablet by mouth every week Rosuvastatin Discontinued 5 MG PO August 02, 2023 1:00am February 15th, 2024 2:10pm FreeTextSi tablet Orally 2 days per week; [...] state, unspecified] Onset: 04-14-2021 Resolved: 01-30-2022 Chronic Cancer of brain and nervous system (20 sources) Glial tumor of brain; 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, unspecified] Onset: 10-13-2021 Resolved: 07-19-2023 Chronic Cancer of head and neck (20 sources) Squamous cell carcinoma of head and neck; 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 of head, face and neck] Onset: 10-13-2021 Chronic Cancer of head and neck (18 sources) History of malignant neoplasm of head and/or neck; Translations: [Personal history of malignant neoplasm of unspecified site of lip, oral cavity, and pharynx] 08-02-2023 Episodic Cancer; other and unspecified primary (3 sources) History of squamous cell carcinoma; Translations: [Personal history of malignant neoplasm of other sites] Episodic Cardiac dysrhythmias (20 sources) Cardiac arrhythmia; Translations: [Cardiac arrhythmia, unspecified] [...] and other heart disease; Translations: [Atherosclerosis of [place] arteries of extremities with intermittent claudication, right leg] Onset: 05-07-2023 Disorders of lipid metabolism (20 sources) Hyperlipidemia; Translations: [Hyperlipidemia, unspecified] Onset: 09-19-2021 Resolved: 09-19-2021 Chronic Essential hypertension (10 sources) Essential hypertension; Translations: [Essential (primary) hypertension] [...] Resolved: 01-30-2022 Episodic Other nervous system disorders (17 sources) Burning sensation; Translations: [Other disturbances of skin sensation] 08-02-2023 Episodic Other nervous system disorders (1 source) Other disturbances of skin sensation Episodic Other nervous system disorders (17 sources) Impairment of balance; Translations: [Other abnormalities of gait and mobility] Onset: 12-10-2022 12-10-2022 Episodic Other nervous system disorders (4 sources) Other abnormalities of gait and mobility; Translations: [Other symptoms involving nervous and musculoskeletal systems] Episodic Other non-traumatic joint disorders (20 sources) [...] and lump, neck] Episodic Other skin disorders (18 sources) Vesicular eczema; 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]] 08-02-2023 [...] unspecified Episodic Otitis media and related conditions (11 sources) Acute transudative otitis media; Translations: [Other [...] or radiculopathy, cervical region] Onset: 12-10-2022 Chronic Substance-related disorders (20 sources) Nicotine dependence with [...] Classification Problem Date Documented Da te Episodic/Chronic Blindness and vision defects (4 sources) Unspecified visual disturbance; Translations: [Visual disturbance] Onset: 01-30-2022 Resolved: 01-30-2022 Episodic Headache; including migraine (3 sources) Headache; including [...] and signs Onset: 01-30-2022 Resolved: 01-30-2022 Episodic Spondylosis; intervertebral disc disorders; other back problems (20 sources) Neck pain; Translations: [Cervicalgia] Onset: 12-05-2021 Resolved: 01-30-2022 Episodic Unclassified (1 source) Pressure in head R51.9 Onset: 12-26-2021 Resolved: 12-26-2021 Unclassified (1 source) Cough R05.9 Unclassified (1 source) Acute cough R05.1 Results Test Name Value Interpretation Reference Range Facility XR ABDOMEN 1 VIEWon 09-10-19 XR ABDOMEN 1 VIEW EXAM: XR ABDOMEN 1 V IEW DATE: 09/10/2023 11:28 AM CLINICAL HISTORY: hematuria right flank pain.. COMPARISON: None available. TECHNIQUE: A supine radiograph of the abdomen and pelvis was obtained. FINDINGS: There is no evidence of obstruction, significant constipation, abnormal bowel dilatation, pneumoperitoneum, or pathologic calcifications identified. A right iliac stent is noted. IMPRESSION: NO ACUTE OR SIGNIFICANT INTRA-ABDOMINAL PROCESS IDENTIFIED, BY PLAIN RADIOGRAPHY ELECTRONICALLY SIGNED BY: Jillian Morales MD Normal Not Available Comment on above: Order Comment: KUB XR CHEST 2 VIEWSon XR CHEST 2 VIEWS EXAM: XR CHEST 2 VIE WS DATE:09/10/2023 11:28 AM CLINICAL HISTORY: cough hx smoking. COMPARISON: None available. TECHNIQUE: Upright PA and lateral radiographs of the chest were obtained. FINDINGS: There is no significant pulmonary infiltrate, cardiomegaly, pleural effusion, vascular congestion, pneumothorax, or displaced fractures identified. IMPRESSION: NO EVIDENCE OF ACTIVE CARDIOPULMONARY DISEASE. ELECTRONICALLY SIGNED BY: Jillian Morales MD Normal Not Available US ankle/arm indiceson 09-04 US ankle/arm indices [facility] [place] [address] [place] [address] Ultrasound Report Signed Patient: Jovani Melendez MR#: [id number] : 1960 Acct:[id number] Age/Sex: 62 / M ADM Date: 09/05/23 Loc: [facility] Room: Type: [facility] Attending Dr: Ruddy Havrey MD Ordering Provider: Ruddy Harvey MD Date of Service: 09/05/23 US/US ankle/arm indices: I70.213 Copies to: Ruddy Harvey MD LOWER EXTREMITY SEGMENTAL ARTERIAL DOPSCAN (PVR) INDICATION: Surveillance study for PAD PROCEDURE: Right arm blood pressure is 142 , left is 161 . Pressures at the right ankle are 184 using the posterior tibial artery, and 175 using the dorsalis pedis artery with ankle-brachial index of 1.14 1.09 . Pressures at the left ankle are 199 using the posterior tibial artery, and 185 with ankle-brachial index of 1.24 1.15 . Wave forms by plethysmography are normal. US/US ankle/arm indices IMPRESSION: NO HEMODYNAMICALLY SIGNIFICANT PERIPHERAL VASCULAR OCCLUSIVE DISEASE AT REST IN EITHER LOWER EXTREMITY. Impression dictated by: Ruddy Harvey MD09/05/2023 2:40 PM Dictation Location: [place] [address] Tech: Agueda Helm Transcribed By: MARISA 09/05/23 1440 Dictated By: Ruddy Harvey MD 09/05/23 1439 Signed By: 09/05/23 1440 Normal [facility] MRI BRAIN W WO CONTRASTon MRI BRAIN [...] Vitor Hickman MD 08/01/23 Final result Normal [facility] MRI CERVICAL SPINE WO CONTRA STon 07-18-2023 [...] Vitor Hickman MD 08/01/23 Final result Normal [facility] COVID + FLU Quick Testingon 07-02-2023 SARS-CoV-2 (COVID-19) RNA JER+probe Ql (Unsp spec) Negative [facility] Other COVID + FLU Quick Testing Negative [facility] Other Quick Strepon 07-02-2023 S. pyogenes Org specific cx Ql (Throat) Negative [facility] Other Quick Strep [facility] Other RSVon 07-02-2023 RSV Ag IA Ql (Unsp spec) Negative [facility] Other US UNI ankle/arm indiceson 1 07-31-2022 US UNI ankle/arm indices [facility] [place] [address] [place], [place] [id number] Ultrasound Report Signed Patient: Jovani Melendez MR#: [id number] : 1960 Acct:[id number] Age/Sex: 62 / M ADM Date: 05/30/23 Loc: [facility] Room: [facility] Attending Dr: Ruddy Harvey MD Ordering Provider: [...] Ruddy Harvey MD05/30/2023 1:37 PM Dictation Location: [place] [address] Tech: Agueda Helm Transcribed By: [facility] 05/30/23 133 Dictated By: Ruddy Harvey MD 05/30/231336 Signed By: 05/30/23 133 [facility] Blood Urea Nitrogenon 2022 Urea nitrogen [Mass/Vol] 15 mg/dL Normal 01-09 [facility] Comment on above: Performed By: #### C REAT, BUN ####[place] [address] [place] [id number] [facility] Creatinineon 05-07-2023 Creatinine [Mass/Vol] 0.91 mg/dL Normal 0.70-1.30 [facility] Comment on above: Performed By: #### C REAT, BUN ####[place] [address] [place] [id number] [place] Creatinine Clr Calc Pharmacy 83.52 [facility] Comment on above: Result Comment: PERF ORMED BY: [facility] [address] [place] [address] PATHOLOGIST DOG BEHAVIORIST CARMEN LYNCH M.D. Performed By: #### C REAT, BUN ####[place] [address] [place] [id number] [place] GFR/1.73 sq M.predicted MDRD (S/P/Bld) [Vol rate/Area] mL/min/{1.73_m2} Normal [facility] Comment on above: Performed By: #### C MARKEL BUN ####[facility] [address] Creatinine [Mass/volume] in Serum or PlasmaOrdered By: Ruddy Harvey on 05-07-2023 Creatinine [Mass/Vol] 0.91 mg/dL 0.70-1.30 [facility] No Panel InformationOrdered By: Ruddy Harvey on 05-07-2023 Estimated GFR (CKD-EPI) > 60.0 mL/Min [facility] Creatinine Clearance (Chem 83.52 [facility] Urea nitrogen [Mass/volume] in Serum or PlasmaOrdered By: Ruddy Harvey on 05-07-2023 Urea nitrogen [Mass/Vol] 15 mg/dL 7- [facility] CT angio neckon 05-04-2023 CT angio neck [facility] [place] [address] [place] [id number] Scan Report Signed Patient: Jovani Melendez MR#: [id number] : 1960 Acct:[id number] Age/Sex: 62 / M ADM Date: 05/04/23 Loc: CT Room: Type: [facility] Attending Dr: Nikole Thomason APRN DIRECT CHILL CASTING OPERATOR-C Copies to: Nikole Thomason APRN, CNP Ordering Provider: Nikole Thomason APRN, CNP Date of Service: 05/04/23 CT/CT angio neck: H53.9, I65.23, I65.1, I66.09, I65.29 ([id number]) CT/CT angio head: H53.9, I65.23, I65.1, I66.09, [...] Alber Goodson M.D.05/04/2023 4:34 PM Dictation Location: [place] [address] Transcribed By: [facility] 05/04/23 1634 Dictated By: Alber Goodson II, MD 05/04/23 1549 Signed By: 05/04/23 1634 [facility] Creatinine (Bld) [Mass/Vol]O rdered By: Nikole Thomason on 05-04-2023 Creatinine [Mass/Vol] 0.9 mg/dL 0.6-1.3 [facility] Comment on above: ER/ESD physician is notified/shown all ISTAT results.Critical values may be confirmed by laboratory testing ifdeemed necessary by ER attending doctor. ISTAT XRay CREon 05-04-2023 Creatinine [Mass/Vol] 0.9 mg/dL Normal 0.6-1.3 [facility] Comment on above: Result Comment: ER/E SD physician is notified/shown all ISTAT results. Critical values may be confirmed by laboratory testing if deemed necessary by ER attending doctor. Performed By: #### I SCRE #### [facility] [address] [place] [address] ISTAT GFR > 60.0 Normal [facility] Comment on above: Result Comment: PERF ORMED BY: [place] [address] PATHOLOGIST DOG BEHAVIORIST CARMEN LYNCH M.D. Performed By: #### I SCRE #### [facility] [address] [place] [address] No Panel InformationOrdered By: Nikole Thomason on 05-04-2023 Bedside Estimated GFR (eGFR) > 60.0 [facility] US arterial pvr rest Tom US arterial pvr rest LE [facility] [place] [address] [place] [address] Ultrasound Report Signed Patient: Jovani Melendez MR#: [id number] : 1960 Acct:[id number] Age/Sex: 62 / M ADM Date: 04/25/23 Loc: Room: Type: [facility] Attending Dr: Lilliam Cason MD Ordering Provider: [...] Ruddy Harvey MD04/26/2023 9:47 AM Dictation Location: [place] [address] Tech: Elisabet Mcclellan Transcribed By: MARISA 04/26/23946 Dictated By: Ruddy Harvey MD 04/26/23944 Signed By: 04/26/23946 Normal [facility] Alanine aminotransferase [En zymatic activity/volume] in Serum or PlasmaOrdered By: Griselda Krause on 03-30-2023 ALT [Catalytic activity/Vol] 10 U/L Normal 7-52 [facility] Comment on above: Order Comment: Reaso n for Exam Night sweats;Hyperlipidemia Performed By: #### C MP, TSH3, CBC, LIPID #### [facility] [address] [place] [address] [place] Albumin [Mass/volume] in Ser um or Plasma by Bromocresol green (BCG) dye binding methoOrdered By: Griselda Krause on 03-30-2023 Albumin BCG dye [Mass/Vol] 4.2 g/dL 3.5-5.7 [facility] Alkaline phosphatase [Enzyma tic activity/volume] in Serum or PlasmaOrdered By: Griselda Krause on 03-30-2023 ALP [Catalytic activity/Vol] 61 U/L Normal 34-104 [facility] Comment on above: Order Comment: Reaso n for Exam Night sweats;Hyperlipidemia Performed By: #### C MP, TSH3, CBC, LIPID #### [facility] [address] [place] [address] [place] Aspartate aminotransferase [ Enzymatic activity/volume] in Serum or PlasmaOrdered By: Griselda Krause on 03-30-2023 AST [Catalytic activity/Vol] 8 U/L Low 13-39 [facility] Comment on above: Order Comment: Reaso n for Exam Night sweats;Hyperlipidemia Performed By: #### C MP, TSH3, CBC, LIPID #### [address] Automated basophil %Ordered By: Griselda Krause on 03-30-2023 Basophils/100 WBC (Bld) 0.8 % Normal . [facility] Comment on above: Order Comment: Reaso n for Exam Night sweats;Hyperlipidemia Performed By: #### C MP, TSH3, CBC, LIPID #### [address] Automated basophil countOrde red By: Griselda Krause on 03-30-2023 Basophils (Bld) [#/Vol] 0.1 10*3/uL Normal 0.0-0.2 [facility] Comment on above: Order Comment: Reaso n for Exam Night sweats;Hyperlipidemia Result Comment: PERF ORMED BY: [place] [address] PATHOLOGIST DOG BEHAVIORIST CARMEN LYNCH M.D. Performed By: #### C MP, TSH3, CBC, LIPID #### [address] Automated blood monocyte cou ntOrdered By: Griselda Krause on 03-30-2023 Monocytes (Bld) [#/Vol] 0.8 10*3/uL Normal 0.0-0.8 [facility] Comment on above: Order Comment: Reaso n for Exam Night sweats;Hyperlipidemia Performed By: #### C MP, TSH3, CBC, LIPID #### [address] Automated eosinophil %Ordere d By: Griselda Krause on 03-30-2023 Eosinophils/100 WBC (Bld) 0.6 % Normal . [facility] Comment on above: Order Comment: Reaso n for Exam Night sweats;Hyperlipidemia Performed By: #### C MP, TSH3, CBC, LIPID #### [address] Automated eosinophil countOr dered By: Griselda Krause on 03-30-2023 Eosinophils (Bld) [#/Vol] 0.1 10*3/uL Normal 0.0-0.45 [facility] Comment on above: Order Comment: Reaso n for Exam Night sweats;Hyperlipidemia Performed By: #### C MP, TSH3, CBC, LIPID #### [facility] [address] Automated monocyte %Ordered By: Griseldakeith Mendezs on 03-30-2023 Monocytes/100 WBC (Bld) 8.0 % Normal . [facility] Comment on above: Order Comment: Reaso n for Exam Night sweats;Hyperlipidemia Performed By: #### C MP, TSH3, CBC, LIPID #### [facility] [address] Automated neutrophil %Ordere d By: Griselda Mendezs on 03-30-2023 Neutrophils/100 WBC (Bld) 73.8 % Normal . [facility] Comment on above: Order Comment: Reaso n for Exam Night sweats;Hyperlipidemia Performed By: #### C MP, TSH3, CBC, LIPID #### [facility] [address] [place] [address] Bilirubin.total [Mass/volume ] in Serum or PlasmaOrdered By: Griselda Mendezs on 03-30-2023 Bilirubin [Mass/Vol] 0.9 mg/dL Normal 0.3-1.[address] [facility] Comment on above: Order Comment: Reaso n for Exam Night sweats;Hyperlipidemia Performed By: #### C MP, TSH3, CBC, LIPID #### [facility] [address] [place] [address] Calcium [Mass/volume] in Ser um or PlasmaOrdered By: Griselda Mendezs on 03-30-2023 Calcium [Mass/Vol] 9.1 mg/dL Normal 8.6-10.3 [facility] Comment on above: Order Comment: Reaso n for Exam Night sweats;Hyperlipidemia Performed By: #### C MP, TSH3, CBC, LIPID #### [facility] [address] [place] [address] Carbon dioxide, total [Moles /volume] in Serum or PlasmaOrdered By: Griselda Mendezs on 03-30-2023 CO2 [Moles/Vol] 27.0 mmol/L Normal 21.0-31.0 [facility] Comment on above: Order Comment: Reaso n for Exam Night sweats;Hyperlipidemia Performed By: #### C MP, TSH3, CBC, LIPID #### [facility] [address] [place] [id number] [place] Chloride [Moles/volume] in S rica or PlasmaOrdered By: Griselda Krause on 03-30-2023 Chloride [Moles/Vol] 103 mmol/L Normal 98-[address] [facility] Comment on above: Order Comment: Reaso n for Exam Night sweats;Hyperlipidemia Performed By: #### C MP, TSH3, CBC, LIPID #### [facility] [address] [place] [id number] [place] Cholesterol [Mass/volume] in Serum or PlasmaOrdered By: Griselda Krause on 03-30-2023 Cholesterol [Mass/Vol] 224 mg/dL High 140-200 [facility] Comment on above: Chol less than 200 m g/dl low riskChol 201-239 mg/dl borderline riskChol 240 mg/dl and greater high risk Order Comment: Reaso n for Exam Night sweats;Hyperlipidemia Result Comment: Chol less than 200 mg/dl low risk Chol 201-239 mg/dl borderline risk Chol 240 mg/dl and greater high risk Performed By: #### C MP, TSH3, CBC, LIPID #### [facility] [address] [place] [address] [place] Cholesterol in LDL Calc [Mas s/Vol]Ordered By: Griselda Krause on 03-30-2023 Cholesterol in LDL [Mass/Vol] 148 mg/dL 0-100 [facility] Comment on above: LDL ATP III CLASSIFI CATIONLDL less than 100 mg/dL OptimalLDL 100-129 mg/dL Near or above optimalLDL 130-159 mg/dL Borderline highLDL 160-189 mg/dL HighLDL greater than 189 mg/dL Very high Cholesterol in VLDL Calc [Ma ss/Vol]Ordered By: Griselda Krause on 03-30-2023 Cholesterol in VLDL [Mass/Vol] 31 mg/dL [facility] Complete Blood Count Auto Di ffon 03-30-2023 Mean Corpuscular HGB Conc 34.9 g/dL Normal 32.5-35.6 [facility] Comment on above: Order Comment: Reaso n for Exam Night sweats;Hyperlipidemia Performed By: #### C MP, TSH3, CBC, LIPID #### [facility] [address] [place] [address] NRBC% 0.1 /100{WBC} Normal 0-0.5 [facility] Comment on above: Order Comment: Reaso n for Exam Night sweats;Hyperlipidemia Performed By: #### C MP, TSH3, CBC, LIPID #### [facility] [address] [place] [address] Comprehensive Metabolic Pane chanel 03-30-2023 Albumin [Mass/Vol] 4.2 g/dL Normal 3.5-5.7 [facility] Comment on above: Order Comment: Reaso n for Exam Night sweats;Hyperlipidemia Performed By: #### C MP, TSH3, CBC, LIPID #### [address] GFR/1.73 sq M.predicted MDRD (S/P/Bld) [Vol rate/Area] mL/min/{1.73_m2} Normal [facility] Comment on above: Order Comment: Reaso n for Exam Night sweats;Hyperlipidemia Performed By: #### C MP, TSH3, CBC, LIPID #### [facility] [address] [place] [address] Creatinine [Mass/volume] in Serum or PlasmaOrdered By: Griselda Krause on 03-30-2023 Creatinine [Mass/Vol] 0.82 mg/dL Normal 0.70-1.30 [facility] Comment on above: Order Comment: Reaso n for Exam Night sweats;Hyperlipidemia Performed By: #### C MP, TSH3, CBC, LIPID #### [facility] [address] [place] [address] Erythrocyte distribution wid th [Ratio] by Automated countOrdered By: Griselda Krause on 03-30-2023 Erythrocyte distribution width (RBC) [Ratio] 14.1 % Normal 12.0-14.8 [facility] Comment on above: Order Comment: Reaso n for Exam Night sweats;Hyperlipidemia Performed By: #### C MP, TSH3, CBC, LIPID #### [facility] [address] [place] [address] [place] Erythrocytes [#/volume] in B lood by Automated countOrdered By: Griselda Krause on 03-30-2023 RBC (Bld) [#/Vol] 4.26 10*6/uL Normal 3.90-5.60 [facility] Comment on above: Order Comment: Reaso n for Exam Night sweats;Hyperlipidemia Performed By: #### C MP, TSH3, CBC, LIPID #### [facility] [address] [place] [address] [place] Glucose [Mass/volume] in Ser um or PlasmaOrdered By: Griselda Krause on 03-30-2023 Glucose [Mass/Vol] 83 mg/dL Normal 70-100 [facility] Comment on above: ADA recommended refe rence rangeRandom Glucose Reference Range is dependent on time and content of last meal. Glucose of more than 200 mg/dL in a nonstressed, ambulatory subject supports the diagnosis of Diabetes Mellitus. Order Comment: Reaso n for Exam Night sweats;Hyperlipidemia Result Comment: [place] Glucose Reference Range is dependent on time and content of last meal. Glucose of more than 200 mg/dL in a nonstressed, ambulatory subject supports the diagnosis of Diabetes Mellitus. ADA recommended reference range Performed By: #### C MP, TSH3, CBC, LIPID #### [facility] [address] [place] [address] [place] Hematocrit [Volume Fraction] of Blood by Automated countOrdered By: Griselda Krause on 03-30-2023 Hematocrit (Bld) [Volume fraction] 41.4 % Normal 38.8-50.0 [facility] Comment on above: Order Comment: Reaso n for Exam Night sweats;Hyperlipidemia Performed By: #### C MP, TSH3, CBC, LIPID #### [facility] [address] [place] [address] [place] Hemoglobin [Mass/volume] in BloodOrdered By: Griselda Krause on 03-30-2023 Hemoglobin (Bld) [Mass/Vol] 14.4 g/dL Normal 13.0-17.0 [facility] Comment on above: Order Comment: Reaso n for Exam Night sweats;Hyperlipidemia Performed By: #### C MP, TSH3, CBC, LIPID #### [facility] [address] Leukocytes [#/volume] correc mone for nucleated erythrocytes in Blood by Automated counOrdered By: Griselda Krause on 03-30-2023 WBC corrected for nucl RBC Auto (Bld) [#/Vol] 10.0 10*3/uL 4.1-10.5 [facility] Leukocytes [#/volume] in Blo od by Automated countOrdered By: Griselda Krause on 03-30-2023 WBC (Bld) [#/Vol] 10.0 10*3/uL Normal 4.1-10.5 [facility] Comment on above: Order Comment: Reaso n for Exam Night sweats;Hyperlipidemia Performed By: #### C MP, TSH3, CBC, LIPID #### [facility] [address] Lipid Panelon 03-30-2023 LDL Cholesterol,Calculated 148 mg/dL High 0-100 [facility] Comment on above: Order Comment: Reaso n for Exam Night sweats;Hyperlipidemia Result Comment: LDL ATP III CLASSIFICATION LDL less than 100 mg/dL Optimal LDL 100-129 mg/dL Near or above optimal LDL 130-159 mg/dL Borderline high LDL 160-189 mg/dL High LDL greater than 189 mg/dL Very high Performed By: #### C MP, TSH3, CBC, LIPID #### [facility] [address] [place] [address] Triglyceride w/Reflex 159 mg/dL High 0-149 [facility] Comment on above: Order Comment: Reaso n for Exam Night sweats;Hyperlipidemia Result Comment: TRIG ATP III CLASSIFICATION TRIG less than 150 mg/dL Normal TRIG 150-199 mg/dL Borderline high TRIG 200-500 mg/dL High TRIG greater than 500 mg/dL Very high Standard traceable to the Center for Disease Conrtrol and Prevention (CDC) test method. Performed By: #### C MP, TSH3, CBC, LIPID #### [facility] [address] VLDL CHOLESTEROL 31 mg/dL Normal [facility] Comment on above: Order Comment: Reaso n for Exam Night sweats;Hyperlipidemia Performed By: #### C MP, TSH3, CBC, LIPID #### [facility] [address] Lymphocytes [#/volume] in Bl ood by Automated countOrdered By: Griselda Krause on 03-30-2023 Lymphocytes (Bld) [#/Vol] 1.7 10*3/uL Normal 1.00-4.8 [facility] Comment on above: Order Comment: Reaso n for Exam Night sweats;Hyperlipidemia Performed By: #### C MP, TSH3, CBC, LIPID #### [facility] [address] [place] [address] Lymphocytes/100 leukocytes i n Blood by Automated countOrdered By: Griselda Krause on 03-30-2023 Lymphocytes/100 WBC (Bld) 16.8 % Normal . [facility] Comment on above: Order Comment: Reaso n for Exam Night sweats;Hyperlipidemia Performed By: #### C MP, TSH3, CBC, LIPID #### [facility] [address] [place] [address] MCH [Entitic mass] by Automa mone countOrdered By: Griselda Krause on 03-30-2023 MCH (RBC) [Entitic mass] 33.9 pg Normal 27.5-35.2 [facility] Comment on above: Order Comment: Reaso n for Exam Night sweats;Hyperlipidemia Performed By: #### C MP, TSH3, CBC, LIPID #### [facility] [address] [place] [address] MCHC Auto (RBC) [Mass/Vol]Or dered By: Griselda Krause on 03-30-2023 MCHC (RBC) [Mass/Vol] 34.9 g/dL 32.5-35.6 [facility] MCV [Entitic volume] by Auto mated countOrdered By: Griselda Krause on 03-30-2023 MCV (RBC) [Entitic vol] 97.1 fL Normal 83.5-101 [facility] Comment on above: Order Comment: Reaso n for Exam Night sweats;Hyperlipidemia Performed By: #### C MP, TSH3, CBC, LIPID #### [facility] [address] Neutrophils [#/volume] in Bl ood by Automated countOrdered By: Griselda Krause on 03-30-2023 Neutrophils (Bld) [#/Vol] 7.3 10*3/uL Normal 1.8-7.7 [facility] Comment on above: Order Comment: Reaso n for Exam Night sweats;Hyperlipidemia Performed By: #### C MP, TSH3, CBC, LIPID #### [facility] [address] No Panel InformationOrdered By: Griselda Krause on 03-30-2023 Estimated GFR (CKD-EPI) > 60.0 mL/Min [facility] Creatinine Clearance (Chem N/A [facility] Nucleated erythrocytes [Pres ence] in Blood by Automated countOrdered By: Griselda Krause on 03-30-2023 Nucleated RBC Auto Ql (Bld) 0.1 /100{WBC} 0-0.5 [facility] Platelet mean volume [Entiti c volume] in Blood by Automated countOrdered By: Griselda Krause on 03-30-2023 Platelet mean volume (Bld) [Entitic vol] 9.2 fL Normal 6.6-10.1 [facility] Comment on above: Order Comment: Reaso n for Exam Night sweats;Hyperlipidemia Performed By: #### C MP, TSH3, CBC, LIPID #### [facility] [address] [place] [address] [place] Platelets [#/volume] in Bloo d by Automated countOrdered By: Griselda Krause on 03-30-2023 Platelets (Bld) [#/Vol] 221 10*3/uL Normal 150-450 [facility] Comment on above: Order Comment: Reaso n for Exam Night sweats;Hyperlipidemia Performed By: #### C MP, TSH3, CBC, LIPID #### [facility] [address] Potassium [Moles/volume] in Serum or PlasmaOrdered By: Griselda Krause on 03-30-2023 Potassium [Moles/Vol] 4.1 mmol/L Normal 3.5-5.1 [facility] Comment on above: Order Comment: Reaso n for Exam Night sweats;Hyperlipidemia Performed By: #### C MP, TSH3, CBC, LIPID #### [facility] [address] Protein [Mass/volume] in Ser um or PlasmaOrdered By: Griselda Krause on 03-30-2023 Protein [Mass/Vol] 6.1 g/dL Low 6.4-8.9 [facility] Comment on above: Order Comment: Reaso n for Exam Night sweats;Hyperlipidemia Performed By: #### C MP, TSH3, CBC, LIPID #### [facility] [address] [place] [address] Serum globulin measurement b y calculation (mass/volume)Ordered By: Griselda Krause on 03-30-2023 Globulin (S) [Mass/Vol] 1.9 g/dL [facility] Comment on above: Order Comment: Reaso n for Exam Night sweats;Hyperlipidemia Performed By: #### C MP, TSH3, CBC, LIPID #### [facility] [address] [place] [address] Serum or plasma albumin/glob ulin mass ratioOrdered By: Griselda Krause on 03-30-2023 Albumin/Globulin [Mass ratio] 2.2 {ratio} [facility] Comment on above: Order Comment: Reaso n for Exam Night sweats;Hyperlipidemia Performed By: #### C MP, TSH3, CBC, LIPID #### [facility] [address] [place] [address] Serum or plasma anion gap de terminationOrdered By: Griselda Krause on 03-30-2023 Anion gap [Moles/Vol] 12.1 mmol/L Normal 6.0-15.0 [facility] Comment on above: Order Comment: Reaso n for Exam Night sweats;Hyperlipidemia Performed By: #### C MP, TSH3, CBC, LIPID #### [facility] [address] [place] [address] Serum or plasma high density lipoprotein (HDL) cholesterol measurementOrdered By: Griselda Krause on 03-30-2023 Cholesterol in HDL [Mass/Vol] 44 mg/dL Normal 23-92 [facility] Comment on above: HDL CHOL ATP-III CLA SSIFICATION Cardiovascular RiskHDL > or equal to 60 mg/dL LOWHDL < 40 mg/dL HIGH Order Comment: Reaso n for Exam Night sweats;Hyperlipidemia Result Comment: HDL CHOL ATP-III CLASSIFICATION Cardiovascular Risk HDL > or equal to 60 mg/dL LOW HDL < 40 mg/dL HIGH Performed By: #### C MP, TSH3, CBC, LIPID #### [facility] [address] Serum or plasma total choles terol/high density lipoprotein (HDL) cholesterol mass ratOrdered By: Griselda Krause on 03-30-2023 Cholesterol.total/Chol esterol in HDL [Mass ratio] 5.1 {ratio} Normal <5.0 [facility] Comment on above: Order Comment: Reaso n for Exam Night sweats;Hyperlipidemia Performed By: #### C MP, TSH3, CBC, LIPID #### [facility] [address] Sodium [Moles/volume] in Ser um or PlasmaOrdered By: Griselda Krause on 03-30-2023 Sodium [Moles/Vol] 138 mmol/L Normal 136-145 [facility] Comment on above: Order Comment: Reaso n for Exam Night sweats;Hyperlipidemia Performed By: #### C MP, TSH3, CBC, LIPID #### [facility] [address] Thyrotropin [Units/volume] i n Serum or PlasmaOrdered By: Griselda Krause on 03-30-2023 TSH Qn 0.93 m[IU]/L Normal 0.45-5.33 [facility] Comment on above: Order Comment: Reaso n for Exam Night sweats;Hyperlipidemia Result Comment: PERF ORMED BY: [place] [address] PATHOLOGIST DOG BEHAVIORIST CARMEN LYNCH M.D. Performed By: #### C MP, TSH3, CBC, LIPID #### [facility] [address] [place] [address] [facility] Triglyceride [Mass/volume] i n Serum or PlasmaOrdered By: Griselda Krause on 03-30-2023 Triglyceride [Mass/Vol] 159 mg/dL 0-149 [facility] Comment on above: TRIG ATP III CLASSIF ICATIONTRIG less than 150 mg/dL NormalTRIG 150-199 mg/dL Borderline highTRIG 200-500 mg/dL High TRIG greater than 500 mg/dL Very highStandard traceable to the Center for Disease Conrtrol and Prevention (CDC) test method. Urea nitrogen [Mass/volume] in Serum or PlasmaOrdered By: Griselda Krause on 03-30-2023 Urea nitrogen [Mass/Vol] 10 mg/dL Normal 7-25 [facility] Comment on above: Order Comment: Reaso n for Exam Night sweats;Hyperlipidemia Performed By: #### C MP, TSH3, CBC, LIPID #### [facility] [address] [place] [address] [facility] COVID-19 Antigenon 3 COVID-19 Antigen Healthcare Worker?: [...] developed and its performance characteristic determined by [email or web address] and validated at [facility]. This test has not been FDA cleared [...] for SARS Antigen by JAMILA PERFORMED BY: [address] [place] [address] PATHOLOGIST DOG BEHAVIORIST CARMEN LYNCH M.D. Normal [facility] Comment on above: Performed By: #### S HUMERA COVID-19 YENNY ####[place] [address] [place] [id number] [facility] COVID-19 SOFIAOrdered By: Brandyn Gaytan on 02-26-2023 SARS-CoV+SARS-CoV-2 (COVID-19) Ag IA.rapid Ql (Resp) Negative Negative [facility] Comment on above: This is a duplicate Yenny SARS Antigen (JAMILA) result to be used for statistical tracking purpose only. No Panel InformationOrdered By: Daniel Gaytan on 02-26-2023 SARS Antigen (LFIA) [facility] SARS Antigen (LFIA) [facility] Yenny Ag Negativeon 02-27-20 23 Yenny Ag Negative Negative Normal Negative [facility] Comment on above: Result Comment: This is a duplicate Yenny SARS Antigen (JAMILA) result to be used for statistical tracking purpose only. PERFORMED BY: [facility] [address] [place] [id number] PATHOLOGIST DOG BEHAVIORIST CARMEN LYNCH M.D. Performed By: #### S OFBASIA COVID-19 YENNY ####[place] [address] [place] [id number] [facility] No Panel Informationon 12-28 XR Pain Management C ase (Reference Range: not available) *FINAL Date of Service: 12/28/2022 08:49 Adm #: [id number] Reading Dr:RICARDO CAPPS Signoff Dr: RICARDO CAPPS PROCEDURE: PAIN MANAGEMENT CASE - BXR 0999 REASON FOR EXAM: SPONDYLOSIS W/O MYELOPATHY OR RADICULOPATHY, CERVICAL REGION RESULT: Patient Name: JOVANI MELENDEZ STUDY: PAIN MANAGEMENT CASE INDICATION: SPONDYLOSIS W/O MYELOPATHY OR RADICULOPATHY, CERVICAL REGION COMPARISON: None. ACCESSION NUMBER(S): [id number] ORDERING CLINICIAN: LIMA JOSEPH TECHNIQUE: See below: FINDINGS: Fluoroscopy was provided during therapeutic puncture in the region of the cervical spine for pain management. Total fluoroscopy time: 14.56mgy, images: 4. IMPRESSION: Fluoroscopy for pain management. Dictation workstation: [id number] Original Interpreting Physician: RICARDO CAPPS M.D. Original Transcribed by/Date: MMODAL Dec 28 2022 6:14A Original Electronically Signed by/Date: RICARDO CAPPS M.D. Dec 28 2022 9:04A Addendum Interpreting Physician: Addendum Transcribed by/Date: NO ADDENDUM Addendum Electronically Signed by/Date: [employer] Quick Strepon 12-05-2022 S. pyogenes Org specific cx Ql (Throat) Negative tarpipe Other Quick Strep tarpipe Other XR pre/post mri xrayon 11-15 XR pre/post mri xray [facility] [place] [address] MRI Report Signed Patient: Jovani Melendez MR#: [id number] : 1960 Acct:[id number] Age/Sex: 61 / M ADM Date: 11/15/22 Loc: [facility] Room: [facility] Att[facility] Dr: Lima Joseph MD Copies to: Lima Joseph MD Ordering Provider: Lima Joseph MD Date of Service: 11/15/22 MR/MR lumbar spine wo con: [id number] ([id number]) XR/XR pre/post mri xray: LUMBAR PRES MRI [...] Filipe Perez M.D.11/15/2022 1:41 PM Dictation Location: [place] [address] Transcribed By: MARISA 11/15/22 1341 Dictated By: Filipe Perez DO 11/15/22 1332 Signed By: 11/15/22 1341 Normal [facility] CBC W Auto Differential pane l (Bld)on 10-27-2022 Basophils (Bld) [#/Vol] 0.03 10*3/uL Normal <0.11 [facility] Comment on above: Order Comment: Speci men Type: BLOOD SPECIMEN Ordering Facility: [facility] Address: [address] [place] [address] Performed By: #### 5 7021-8 #### [facility] CLIA [id number] [address] [place] [address] 79954 Basophils/100 WBC (Bld) 0.3 % Normal [facility] Comment on above: Order Comment: Speci men Type: BLOOD SPECIMEN Ordering Facility: [facility] Address: [address] [place] [address] Performed By: #### 5 7021-8 #### [facility] CLIA [id number] [address] [place] [address]4436 Differential cell count method Nom (Bld) Auto Normal [facility] Comment on above: Order Comment: Speci men Type: BLOOD SPECIMEN Ordering Facility: [facility] Address: [address] [place] [address] Performed By: #### 5 7021-8 #### [facility] CLIA [id number] [address] [place] [address] Eosinophils (Bld) [#/Vol] 0.06 10*3/uL Normal <0.46 [facility] Comment on above: Order Comment: Speci men Type: BLOOD SPECIMEN Ordering Facility: [facility] Address: [address] [place] [address] Performed By: #### 5 7021-8 #### [facility] CLIA [id number] [address] [place] [address] 18479 Eosinophils/100 WBC (Bld) 0.7 % Normal [facility] Comment on above: Order Comment: Speci men Type: BLOOD SPECIMEN Ordering Facility: [facility] Address: [address] [place] [address] Performed By: #### 5 7021-8 #### [facility] CLIA [id number] [address] [place] [address]4484 Erythrocyte distribution width (RBC) [Ratio] 14.0 % Normal 11.5-15.0 [facility] Comment on above: Order Comment: Speci men Type: BLOOD SPECIMEN Ordering Facility: [facility] Address: [address] [place] [address] Performed By: #### 5 7021-8 #### [facility] CLIA [id number] [address] [place] [address]12 Hematocrit (Bld) [Volume fraction] 43.5 % Normal 39.0-51.0 [facility] Comment on above: Order Comment: Speci men Type: BLOOD SPECIMEN Ordering Facility: [facility] Address: [address] [place] [address] Performed By: #### 5 7021-8 #### [facility] CLIA [id number] [address] [place] [address] 13788 Hemoglobin (Bld) [Mass/Vol] 14.5 g/dL Normal 13.0-17.0 [facility] Comment on above: Order Comment: Speci men Type: BLOOD SPECIMEN Ordering Facility: [facility] Address: [address] [place] [address] Performed By: #### 5 7021-8 #### [facility] CLIA [id number] [address] [place] [address] 15449 Immature granulocytes (Bld) [#/Vol] 0.03 10*3/uL Normal <0.10 [facility] Comment on above: Order Comment: Speci men Type: BLOOD SPECIMEN Ordering Facility: [facility] Address: [address] [place] [address] Performed By: #### 5 7021-8 #### [facility] CLIA [id number] [address] [place] [address]4534 Immature granulocytes/100 WBC (Bld) 0.3 % Normal [facility] Comment on above: Order Comment: Speci men Type: BLOOD SPECIMEN Ordering Facility: [facility] Address: [address] [place] [address] Performed By: #### 5 7021-8 #### [facility] CLIA [id number] [address] [place] [address]809 Lymphocytes (Bld) [#/Vol] 2.00 10*3/uL Normal 1.00-4.00 [facility] Comment on above: Order Comment: Speci men Type: BLOOD SPECIMEN Ordering Facility: [facility] Address: [address] [place] [address] Performed By: #### 5 7021-8 #### [facility] CLIA [id number] [address] [place] [address] 87310 Lymphocytes/100 WBC (Bld) 21.9 % Normal [facility] Comment on above: Order Comment: Speci men Type: BLOOD SPECIMEN Ordering Facility: [facility] Address: [address] [place] [address] Performed By: #### 5 7021-8 #### [facility] CLIA [id number] [address] [place] [address] 21178 MCH (RBC) [Entitic mass] 31.3 pg Normal 26.0-34.0 [facility] Comment on above: Order Comment: Speci men Type: BLOOD SPECIMEN Ordering Facility: [facility] Address: [address] [place] [address] Performed By: #### 5 7021-8 #### [facility] CLIA [id number] [address] [place] [address] 31817 MCHC (RBC) [Mass/Vol] 33.3 g/dL Normal 30.5-36.0 [facility] Comment on above: Order Comment: Speci men Type: BLOOD SPECIMEN Ordering Facility: [facility] Address: [address] [place] [address] Performed By: #### 5 7021-8 #### [facility] CLIA [id number] [address] [place] [address] 86801 MCV (RBC) [Entitic vol] 93.8 fL Normal 80.0-100.0 [facility] Comment on above: Order Comment: Speci men Type: BLOOD SPECIMEN Ordering Facility: [facility] Address: [address] [place] [address] Performed By: #### 5 7021-8 #### [facility] CLIA [id number] [address] [place] [address] 11039 Monocytes (Bld) [#/Vol] 0.53 10*3/uL Normal <0.87 [facility] Comment on above: Order Comment: Speci men Type: BLOOD SPECIMEN Ordering Facility: [facility] Address: [address] [place] [address] Performed By: #### 5 7021-8 #### [facility] CLIA [id number] [address] [place] [address] 09046 Monocytes/100 WBC (Bld) 5.8 % Normal [facility] Comment on above: Order Comment: Speci men Type: BLOOD SPECIMEN Ordering Facility: [facility] Address: [address] [place] [address] Performed By: #### 5 7021-8 #### [facility] CLIA [id number] [address] [place] [address] 28560 Neutrophils (Bld) [#/Vol] 6.47 10*3/uL Normal 1.45-7.50 [facility] Comment on above: Order Comment: Speci men Type: BLOOD SPECIMEN Ordering Facility: [facility] Address: [address] [place] [address] Performed By: #### 5 7021-8 #### [facility] CLIA [id number] [address] [place] [address] 63487 Neutrophils/100 WBC (Bld) 71.0 % Normal [facility] Comment on above: Order Comment: Speci men Type: BLOOD SPECIMEN Ordering Facility: [facility] Address: [address] [place] [address] Performed By: #### 5 7021-8 #### [facility] CLIA [id number] [address] [place] [address] 83902 Nucleated RBC (Bld) [#/Vol] 10*3/uL Normal <0.01 [facility] Comment on above: Order Comment: Speci men Type: BLOOD SPECIMEN Ordering Facility: [facility] Address: [address] [place] [address] Performed By: #### 5 7021-8 #### [facility] CLIA [id number] [address] [place] [address] 38906 Nucleated RBC/100 WBC (Bld) [Ratio] 0.0 /100 WBC Normal [facility] Comment on above: Order Comment: Speci men Type: BLOOD SPECIMEN Ordering Facility: [facility] Address: [address] [place] [address] Performed By: #### 5 7021-8 #### [facility] CLIA [id number] [address] [place] [address] 95995 Platelet mean volume (Bld) [Entitic vol] 10.8 fL Normal 9.0-12.7 [facility] Comment on above: Order Comment: Speci men Type: BLOOD SPECIMEN Ordering Facility: [facility] Address: [address] Performed By: #### 5 7021-8 #### [facility] CLIA [id number] [address] [place] [address]3045 Platelets (Bld) [#/Vol] 253 10*3/uL Normal 150-400 [facility] Comment on above: Order Comment: Speci men Type: BLOOD SPECIMEN Ordering Facility: [facility] Address: [address] [place] [address] Performed By: #### 5 7021-8 #### [facility] CLIA [id number] [address] [place] [address] 98700 RBC (Bld) [#/Vol] 4.64 10*6/uL Normal 4.20-6.00 [facility] Comment on above: Order Comment: Speci men Type: BLOOD SPECIMEN Ordering Facility: [facility] Address: [address] [place] [phone] Performed By: #### 5 7021-8 #### [facility] CLIA [id number] [address] [place] [address] 60866 WBC (Bld) [#/Vol] 9.12 10*3/uL Normal 3.70-11.00 [facility] Comment on above: Order Comment: Speci men Type: BLOOD SPECIMEN Ordering Facility: [facility] Address: [address] [place] [phone] Performed By: #### 5 7021-8 #### [facility] CLIA [id number] [address] [place] [address] CT [address] CT CHEST W IVCON * * *Final Report* * * DATE OF EXAM: Oct 27 2022 11:44AM [facility] 0539 - CT CHEST W IVCON / [...] No abnormality in the imaged upper abdomen. Plastic Boat Patcher (topogram) images: No additional findings. IMPRESSION: Stable [...] any questions regarding this interpretation, please call [phone]. If you are unable to reach us at the number above, please feel free to contact [facility] at [phone]. 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 Parotid and submandibular spaces are normal. Digital Measurement Advisor spaces appear normal. Infrahyoid Neck: Hypopharynx, larynx, [...] evidence of abnormal lymph nodes. [email or web address] Transcribe Date/Time: Oct 27 2022 11:56A Dictated by: KATJA HAMPTON MD This examination was interpreted and the report reviewed and electronically signed by: KATJA HAMPTON MD on Oct 27 2022 12:14PM EST Thank you for allowing us to participate in the care of your patient. Should there be any questions regarding this interpretation, please call [phone]. If you are unable to reach us at the number above, please feel free to contact [facility] at [phone]. [id number] Normal [facility] Comprehensive metabolic 2000 panelon 10-27-2022 Albumin [Mass/Vol] 4.3 g/dL Normal 3.9-4.9 [facility] Comment on above: Order Comment: Speci men Type: BLOOD SPECIMEN Ordering Facility: [facility] Address: [address] [place] [address] Performed By: #### 2 4323-8 #### [facility] CLIA [id number] [address] [place] [address]2296 ALP [Catalytic activity/Vol] 89 U/L Normal 38-113 [facility] Comment on above: Order Comment: Speci men Type: BLOOD SPECIMEN Ordering Facility: [facility] Address: [address] [place] [address] Performed By: #### 2 4323-8 #### [facility] CLIA [id number] [address] [place] [address]451 ALT [Catalytic activity/Vol] 7 U/L Low 10-54 [facility] Comment on above: Order Comment: Speci men Type: BLOOD SPECIMEN Ordering Facility: [facility] Address: [address] [place] [address] Performed By: #### 2 4323-8 #### [facility] CLIA [id number] [address] [place] [address]508 Anion gap [Moles/Vol] 10 mmol/L Normal 9-18 [facility] Comment on above: Order Comment: Speci men Type: BLOOD SPECIMEN Ordering Facility: [facility] Address: [address] [place] [address] Performed By: #### 2 4323-8 #### [facility] CLIA [id number] [address] [place] [address] AST [Catalytic activity/Vol] 8 U/L Low 14-40 [facility] Comment on above: Order Comment: Speci men Type: BLOOD SPECIMEN Ordering Facility: [facility] Address: [address] [place] [address] Performed By: #### 2 4323-8 #### [facility] CLIA [id number] [address] [place] [address] Bilirubin [Mass/Vol] 0.3 mg/dL Normal 0.2-1.3 [facility] Comment on above: Order Comment: Speci men Type: BLOOD SPECIMEN Ordering Facility: [facility] Address: [address] [place] [address] Performed By: #### 2 4323-8 #### [facility] CLIA [id number] [address] [place] [address] 28941 Calcium [Mass/Vol] 9.6 mg/dL Normal 8.5-10.2 [facility] Comment on above: Order Comment: Speci men Type: BLOOD SPECIMEN Ordering Facility: [facility] Address: [address] [place] [address] Performed By: #### 2 4323-8 #### [facility] CLIA [id number] [address] [place] [address] 87041 Chloride [Moles/Vol] 104 mmol/L Normal 97-105 [facility] Comment on above: Order Comment: Speci men Type: BLOOD SPECIMEN Ordering Facility: [facility] Address: [address] [place] [address] Performed By: #### 2 4323-8 #### [facility] CLIA [id number] [address] [place] [address] 47257 CO2 [Moles/Vol] 27 mmol/L Normal 22-30 [facility] Comment on above: Order Comment: Speci men Type: BLOOD SPECIMEN Ordering Facility: [facility] Address: [address] [place] [address] Performed By: #### 2 4323-8 #### [facility] CLIA [id number] [address] [place] [address] Creatinine [Mass/Vol] 0.93 mg/dL Normal 0.73-1.22 [facility] Comment on above: Order Comment: Speci men Type: BLOOD SPECIMEN Ordering Facility: [facility] Address: [address] [place] [address] Performed By: #### 2 4323-8 #### [facility] CLIA [id number] [address] [place] [address] 47858 ESTIMATED GLOMERULAR FILTRATION RATE 95 mL/min/1.73m??? Normal >=60 [facility] Comment on above: Order Comment: Trevor jordan Type: BLOOD SPECIMEN Ordering Facility: [facility] Address: [address] [place] [address] Result Comment: Charisse mated Glomerular Filtration Rate [...] GFR. Performed By: #### 2 4323-8 #### [facility] CLIA [id number] [address] [place] [address] 13415 Glucose [Mass/Vol] 98 mg/dL Normal 74-99 [facility] Comment on above: Order Comment: Speci nikki Type: BLOOD SPECIMEN Ordering Facility: [facility] Address: [address] [place] [address] Result Comment: The [place] Diabetes Association (ADA) provides guidance for cutoff [...] Standards of Medical Care in Diabetes 2016, [place] [employer]. Diabetes Care. 2016.39(Suppl 1). Performed By: #### 2 4323-8 #### [facility] CLIA [id number] [address] [place] [address] 25248 Potassium [Moles/Vol] 4.5 mmol/L Normal 3.7-5.1 [facility] Comment on above: Order Comment: Speci men Type: BLOOD SPECIMEN Ordering Facility: [facility] Address: [address] [place] [address] Performed By: #### 2 4323-8 #### [facility] CLIA [id number] [address] [place] [address] 55769 Protein [Mass/Vol] 6.6 g/dL Normal 6.3-8.0 [facility] Comment on above: Order Comment: Speci men Type: BLOOD SPECIMEN Ordering Facility: [facility] Address: [address] [place] [address] Performed By: #### 2 4323-8 #### [facility] CLIA [id number] [address] [place] [address] 19315 Sodium [Moles/Vol] 141 mmol/L Normal 136-144 [facility] Comment on above: Order Comment: Speci men Type: BLOOD SPECIMEN Ordering Facility: [facility] Address: [address] [place] [address] Performed By: #### 2 4323-8 #### [facility] CLIA [id number] [address] [place] [address] 62073 Urea nitrogen [Mass/Vol] 12 mg/dL Normal 9-24 [facility] Comment on above: Order Comment: Speci men Type: BLOOD SPECIMEN Ordering Facility: [facility] Address: [address] [place] [address] Performed By: #### 2 4323-8 #### [facility] CLIA [id number] [address] [place] [address] Alanine aminotransferase [En zymatic activity/volume] in Serum or PlasmaOrdered By: Griselda Krause on 10-24-2022 ALT [Catalytic activity/Vol] 7 U/L 7-52 [facility] Albumin [Mass/volume] in Ser um or Plasma by Bromocresol green (BCG) dye binding methoOrdered By: Griselda Krause on 10-24-2022 Albumin BCG dye [Mass/Vol] 4.2 g/dL 3.5-5.7 [facility] Alkaline phosphatase [Enzyma tic activity/volume] in Serum or PlasmaOrdered By: Griselda Krause on 10-24-2022 ALP [Catalytic activity/Vol] 76 U/L 34-104 [facility] Aspartate aminotransferase [ Enzymatic activity/volume] in Serum or PlasmaOrdered By: Griselda Krause on 10-24-2022 AST [Catalytic activity/Vol] 10 U/L 13-39 [facility] Basophils Auto (Bld) [#/Vol] Ordered By: Griselda Krause on 10-24-2022 Basophils (Bld) [#/Vol] 0.0 10*3/uL 0.0-0.2 [facility] Basophils/100 WBC Auto (Bld) Ordered By: Griselda Krause on 10-24-2022 Basophils/100 WBC (Bld) 0.9 % . [facility] Bilirubin.total [Mass/volume ] in Serum or PlasmaOrdered By: Griselda Krause on 10-24-2022 Bilirubin [Mass/Vol] 0.4 mg/dL 0.3-1.[address] [facility] Calcium [Mass/volume] in Ser um or PlasmaOrdered By: Griselda Krause on 10-24-2022 Calcium [Mass/Vol] 9.1 mg/dL 8.6-10.3 [facility] Carbon dioxide, total [Moles /volume] in Serum or PlasmaOrdered By: Griselda Krause on 10-24-2022 CO2 [Moles/Vol] 28.3 mmol/L 21.0-31.0 [facility] Chloride [Moles/volume] in S rica or PlasmaOrdered By: Griselda Krause on 10-24-2022 Chloride [Moles/Vol] 105 mmol/L 98-[address] [facility] Cholesterol [Mass/volume] in Serum or PlasmaOrdered By: Griselda Krause on 10-24-2022 Cholesterol [Mass/Vol] 240 mg/dL 140-200 [facility] Comment on above: Chol less than 200 m g/dl low riskChol 201-239 mg/dl borderline riskChol 240 mg/dl and greater high risk Cholesterol in LDL Calc [Mas s/Vol]Ordered By: Griselda Krause on 10-24-2022 Cholesterol in LDL [Mass/Vol] 169 mg/dL 0-100 [facility] Comment on above: LDL ATP III CLASSIFI CATIONLDL less than 100 mg/dL OptimalLDL 100-129 mg/dL Near or above optimalLDL 130-159 mg/dL Borderline highLDL 160-189 mg/dL HighLDL greater than 189 mg/dL Very high Cholesterol in VLDL Calc [Ma ss/Vol]Ordered By: Griselda Krause on 10-24-2022 Cholesterol in VLDL [Mass/Vol] 35 mg/dL [facility] Complete Blood Count Auto Di ffon 10-24-2022 Basophils (Bld) [#/Vol] 0.0 10*3/uL Normal 0.0-0.2 [facility] Comment on above: Order Comment: Reaso n for Exam Hyperlipidemia Result Comment: PERF ORMED BY: [place] [address] PATHOLOGIST DOG BEHAVIORIST CARMEN LYNCH M.D. Performed By: #### C BC, CMP, LIPID, TSH3, PSAS #### [facility] [address] [place] [address] [place] Basophils/100 WBC (Bld) 0.9 % Normal . [facility] Comment on above: Order Comment: Reaso n for Exam Hyperlipidemia Performed By: #### C BC, CMP, LIPID, TSH3, PSAS #### [facility] [address] [place] [address] [place] Eosinophils (Bld) [#/Vol] 0.1 10*3/uL Normal 0.0-0.45 [facility] Comment on above: Order Comment: Reaso n for Exam Hyperlipidemia Performed By: #### C BC, CMP, LIPID, TSH3, PSAS #### [facility] [address] [place] [address] [place] Eosinophils/100 WBC (Bld) 2.0 % Normal . [facility] Comment on above: Order Comment: Reaso n for Exam Hyperlipidemia Performed By: #### C BC, CMP, LIPID, TSH3, PSAS #### [address] Erythrocyte distribution width (RBC) [Ratio] 14.7 % Normal 12.0-14.8 [facility] Comment on above: Order Comment: Reaso n for Exam Hyperlipidemia Performed By: #### C BC, CMP, LIPID, TSH3, PSAS #### [address] Hematocrit (Bld) [Volume fraction] 43.4 % Normal 38.8-50.0 [facility] Comment on above: Order Comment: Reaso n for Exam Hyperlipidemia Performed By: #### C BC, CMP, LIPID, TSH3, PSAS #### [address] Hemoglobin (Bld) [Mass/Vol] 14.5 g/dL Normal 13.0-17.0 [facility] Comment on above: Order Comment: Reaso n for Exam Hyperlipidemia Performed By: #### C BC, CMP, LIPID, TSH3, PSAS #### [facility] [address] [place] [address] [place] Lymphocytes (Bld) [#/Vol] 2.0 10*3/uL Normal 1.00-4.8 [facility] Comment on above: Order Comment: Reaso n for Exam Hyperlipidemia Performed By: #### C BC, CMP, LIPID, TSH3, PSAS #### [place] [address] [place] Lymphocytes/100 WBC (Bld) 39.8 % Normal . [facility] Comment on above: Order Comment: Reaso n for Exam Hyperlipidemia Performed By: #### C BC, CMP, LIPID, TSH3, PSAS #### [address] MCH (RBC) [Entitic mass] 31.5 pg Normal 27.5-35.2 [facility] Comment on above: Order Comment: Reaso n for Exam Hyperlipidemia Performed By: #### C BC, CMP, LIPID, TSH3, PSAS #### [address] MCV (RBC) [Entitic vol] 94.0 fL Normal 83.5-101 [facility] Comment on above: Order Comment: Reaso n for Exam Hyperlipidemia Performed By: #### C BC, CMP, LIPID, TSH3, PSAS #### [address] Mean Corpuscular HGB Conc 33.5 g/dL Normal 32.5-35.6 [facility] Comment on above: Order Comment: Reaso n for Exam Hyperlipidemia Performed By: #### C BC, CMP, LIPID, TSH3, PSAS #### [place] [address] [place] Monocytes (Bld) [#/Vol] 0.3 10*3/uL Normal 0.0-0.8 [facility] Comment on above: Order Comment: Reaso n for Exam Hyperlipidemia Performed By: #### C BC, CMP, LIPID, TSH3, PSAS #### [place] [address] [place] Monocytes/100 WBC (Bld) 5.4 % Normal . [facility] Comment on above: Order Comment: Reaso n for Exam Hyperlipidemia Performed By: #### C BC, CMP, LIPID, TSH3, PSAS #### [place] [address] [place] Neutrophils (Bld) [#/Vol] 2.6 10*3/uL Normal 1.8-7.7 [facility] Comment on above: Order Comment: Reaso n for Exam Hyperlipidemia Performed By: #### C BC, CMP, LIPID, TSH3, PSAS #### [place] [address] [place] Neutrophils/100 WBC (Bld) 51.9 % Normal . [facility] Comment on above: Order Comment: Reaso n for Exam Hyperlipidemia Performed By: #### C BC, CMP, LIPID, TSH3, PSAS #### [address] NRBC% 0.1 /100{WBC} Normal 0-0.5 [facility] Comment on above: Order Comment: Reaso n for Exam Hyperlipidemia Performed By: #### C BC, CMP, LIPID, TSH3, PSAS #### [address] Platelet mean volume (Bld) [Entitic vol] 9.6 fL Normal 6.6-10.1 [facility] Comment on above: Order Comment: Reaso n for Exam Hyperlipidemia Performed By: #### C BC, CMP, LIPID, TSH3, PSAS #### [address] Platelets (Bld) [#/Vol] 247 10*3/uL Normal 150-450 [facility] Comment on above: Order Comment: Reaso n for Exam Hyperlipidemia Performed By: #### C BC, CMP, LIPID, TSH3, PSAS #### [address] RBC (Bld) [#/Vol] 4.61 10*6/uL Normal 3.90-5.60 [facility] Comment on above: Order Comment: Reaso n for Exam Hyperlipidemia Performed By: #### C BC, CMP, LIPID, TSH3, PSAS #### [address] WBC (Bld) [#/Vol] 5.0 10*3/uL Normal 4.1-10.5 [facility] Comment on above: Order Comment: Reaso n for Exam Hyperlipidemia Performed By: #### C BC, CMP, LIPID, TSH3, PSAS #### [address] Comprehensive Metabolic Pane chanel 10-24-2022 Albumin [Mass/Vol] 4.2 g/dL Normal 3.5-5.7 [facility] Comment on above: Order Comment: Reaso n for Exam Hyperlipidemia Performed By: #### C BC, CMP, LIPID, TSH3, PSAS ####[address] [address] [facility] Albumin/Globulin [Mass ratio] 2.0 {ratio} Normal [facility] Comment on above: Order Comment: Reaso n for Exam Hyperlipidemia Performed By: #### C BC, CMP, LIPID, TSH3, PSAS ####[address] [address] [facility] ALP [Catalytic activity/Vol] 76 U/L Normal 34-104 [facility] Comment on above: Order Comment: Reaso n for Exam Hyperlipidemia Performed By: #### C BC, CMP, LIPID, TSH3, PSAS ####[address] [address] [facility] ALT [Catalytic activity/Vol] 7 U/L Normal 7-52 [facility] Comment on above: Order Comment: Reaso n for Exam Hyperlipidemia Performed By: #### C BC, CMP, LIPID, TSH3, PSAS ####[address] [address] [facility] Anion gap [Moles/Vol] 11.7 mmol/L Normal 6.0-15.0 [facility] Comment on above: Order Comment: Reaso n for Exam Hyperlipidemia Performed By: #### C BC, CMP, LIPID, TSH3, PSAS ####[address] [address] [facility] AST [Catalytic activity/Vol] 10 U/L Low 13-39 [facility] Comment on above: Order Comment: Reaso n for Exam Hyperlipidemia Performed By: #### C BC, CMP, LIPID, TSH3, PSAS ####[place] [id number] [facility] Bilirubin [Mass/Vol] 0.4 mg/dL Normal 0.3-1.[address] [facility] Comment on above: Order Comment: Reaso n for Exam Hyperlipidemia Performed By: #### C BC, CMP, LIPID, TSH3, PSAS ####[place] [address] [place] [id number] [facility] Calcium [Mass/Vol] 9.1 mg/dL Normal 8.6-10.3 [facility] Comment on above: Order Comment: Reaso n for Exam Hyperlipidemia Performed By: #### C BC, CMP, LIPID, TSH3, PSAS ####[place] [id number] [facility] Chloride [Moles/Vol] 105 mmol/L Normal 98-[address] [facility] Comment on above: Order Comment: Reaso n for Exam Hyperlipidemia Performed By: #### C BC, CMP, LIPID, TSH3, PSAS ####[address] CO2 [Moles/Vol] 28.3 mmol/L Normal 21.0-31.0 [facility] Comment on above: Order Comment: Reaso n for Exam Hyperlipidemia Performed By: #### C BC, CMP, LIPID, TSH3, PSAS ####[place] [id number] [facility] Creatinine [Mass/Vol] 0.88 mg/dL Normal 0.70-1.30 [facility] Comment on above: Order Comment: Reaso n for Exam Hyperlipidemia Performed By: #### C BC, CMP, LIPID, TSH3, PSAS ####[place] [id number] [facility] GFR/1.73 sq M.predicted MDRD (S/P/Bld) [Vol rate/Area] mL/min/{1.73_m2} [facility] Comment on above: Order Comment: Reaso n for Exam Hyperlipidemia Performed By: #### C BC, CMP, LIPID, TSH3, PSAS ####[place] [id number] [facility] Globulin (S) [Mass/Vol] 2.1 g/dL [facility] Comment on above: Order Comment: Reaso n for Exam Hyperlipidemia Performed By: #### C BC, CMP, LIPID, TSH3, PSAS ####[address] [address] [facility] Glucose [Mass/Vol] 82 mg/dL Normal 70-100 [facility] Comment on above: Order Comment: Reaso n for Exam Hyperlipidemia Result Comment: [facility] [place] Glucose Reference Range is dependent on time and content of last meal. Glucose of more than 200 mg/dL in a nonstressed, ambulatory subject supports the diagnosis of Diabetes Mellitus. ADA recommended reference range Performed By: #### C BC, CMP, LIPID, TSH3, PSAS ####[place] [id number] [facility] Potassium [Moles/Vol] 4.0 mmol/L Normal 3.5-5.1 [facility] Comment on above: Order Comment: Reaso n for Exam Hyperlipidemia Performed By: #### C BC, CMP, LIPID, TSH3, PSAS ####[place] [id number] [facility] Protein [Mass/Vol] 6.3 g/dL Low 6.4-8.9 [facility] Comment on above: Order Comment: Reaso n for Exam Hyperlipidemia Performed By: #### C BC, CMP, LIPID, TSH3, PSAS ####[place] [id number] [facility] Sodium [Moles/Vol] 141 mmol/L Normal 136-145 [facility] Comment on above: Order Comment: Reaso n for Exam Hyperlipidemia Performed By: #### C BC, CMP, LIPID, TSH3, PSAS ####[place] [id number] [facility] Urea nitrogen [Mass/Vol] 15 mg/dL Normal 7-25 [facility] Comment on above: Order Comment: Reaso n for Exam Hyperlipidemia Performed By: #### C BC, CMP, LIPID, TSH3, PSAS ####[place] [id number] [facility] Creatinine [Mass/volume] in Serum or PlasmaOrdered By: Griselda Krause on 10-24-2022 Creatinine [Mass/Vol] 0.88 mg/dL 0.70-1.30 [facility] Eosinophils Auto (Bld) [#/Vo l]Ordered By: Griselda Krause on 10-24-2022 Eosinophils (Bld) [#/Vol] 0.1 10*3/uL 0.0-0.45 [facility] Eosinophils/100 WBC Auto (Bl d)Ordered By: Griselda Krause on 10-24-2022 Eosinophils/100 WBC (Bld) 2.0 % . [facility] Erythrocyte distribution wid th Auto (RBC) [Ratio]Ordered By: Griselda Krause on 10-24-2022 Erythrocyte distribution width (RBC) [Ratio] 14.7 % 12.0-14.8 [facility] Globulin Calc (S) [Mass/Vol] Ordered By: Griselda Krause on 10-24-2022 Globulin (S) [Mass/Vol] 2.1 g/dL [facility] Glucose [Mass/volume] in Ser um or PlasmaOrdered By: Griselda Krause on 10-24-2022 Glucose [Mass/Vol] 82 mg/dL 70-100 [facility] Comment on above: ADA recommended refe rence rangeRandom Glucose Reference Range is dependent on time and content of last meal. Glucose of more than 200 mg/dL in a nonstressed, ambulatory subject supports the diagnosis of Diabetes Mellitus. Hematocrit Auto (Bld) [Volum e fraction]Ordered By: Griselda Krause on 10-24-2022 Hematocrit (Bld) [Volume fraction] 43.4 % 38.8-50.0 [facility] Hemoglobin [Mass/volume] in BloodOrdered By: Griselda Krause on 10-24-2022 Hemoglobin (Bld) [Mass/Vol] 14.5 g/dL 13.0-17.0 [facility] Leukocytes [#/volume] correc mone for nucleated erythrocytes in Blood by Automated counOrdered By: Griselda Krause on 10-24-2022 WBC corrected for nucl RBC Auto (Bld) [#/Vol] 5.0 10*3/uL 4.1-10.5 [facility] Lipid Panelon 10-24-2022 Cholesterol [Mass/Vol] 240 mg/dL High 140-200 [facility] Comment on above: Order Comment: Reaso n for Exam Hyperlipidemia Result Comment: Chol less than 200 mg/dl low risk Chol 201-239 mg/dl borderline risk Chol 240 mg/dl and greater high risk Performed By: #### C BC, CMP, LIPID, TSH3, PSAS ####[facility] [id number] Cholesterol in HDL [Mass/Vol] 36 mg/dL Normal 29-71 [facility] Comment on above: Order Comment: Reaso n for Exam Hyperlipidemia Result Comment: HDL CHOL ATP-III CLASSIFICATION Cardiovascular Risk HDL > or equal to 60 mg/dL LOW HDL < 40 mg/dL HIGH Performed By: #### C BC, CMP, LIPID, TSH3, PSAS ####[place] [address] Cholesterol.total/Chol esterol in HDL [Mass ratio] 6.7 {ratio} Normal <5.0 [facility] Comment on above: Order Comment: Reaso n for Exam Hyperlipidemia Performed By: #### C BC, CMP, LIPID, TSH3, PSAS ####[address] LDL Cholesterol,Calculated 169 mg/dL High 0-100 [facility] Comment on above: Order Comment: Reaso n for Exam Hyperlipidemia Result Comment: LDL ATP III CLASSIFICATION LDL less than 100 mg/dL Optimal LDL 100-129 mg/dL Near or above optimal LDL 130-159 mg/dL Borderline high LDL 160-189 mg/dL High LDL greater than 189 mg/dL Very high Performed By: #### C BC, CMP, LIPID, TSH3, PSAS ####[place] [id number] [facility] Triglyceride w/Reflex 175 mg/dL High 0-149 [facility] Comment on above: Order Comment: Reaso n for Exam Hyperlipidemia Result Comment: TRIG ATP III CLASSIFICATION TRIG less than 150 mg/dL Normal TRIG 150-199 mg/dL Borderline high TRIG 200-500 mg/dL High TRIG greater than 500 mg/dL Very high Standard traceable to the Center for Disease Conrtrol and Prevention (CDC) test method. Performed By: #### C BC, CMP, LIPID, TSH3, PSAS ####[place] [address] [place] [id number] [facility] VLDL CHOLESTEROL 35 mg/dL Normal [facility] Comment on above: Order Comment: Reaso n for Exam Hyperlipidemia Performed By: #### C BC, CMP, LIPID, TSH3, PSAS ####[facility] [id number] Lymphocytes Auto (Bld) [#/Vo l]Ordered By: Griselda Krause on 10-24-2022 Lymphocytes (Bld) [#/Vol] 2.0 10*3/uL 1.00-4.8 [facility] Lymphocytes/100 WBC Auto (Bl d)Ordered By: Griselda Krause on 10-24-2022 Lymphocytes/100 WBC (Bld) 39.8 % . [facility] MCH Auto (RBC) [Entitic mass ]Ordered By: Griselda Krause on 10-24-2022 MCH (RBC) [Entitic mass] 31.5 pg 27.5-35.2 [facility] MCHC Auto (RBC) [Mass/Vol]Or dered By: Griselda Krause on 10-24-2022 MCHC (RBC) [Mass/Vol] 33.5 g/dL 32.5-35.6 [facility] MCV Auto (RBC) [Entitic vol] Ordered By: Griselda Krause on 10-24-2022 MCV (RBC) [Entitic vol] 94.0 fL 83.5-101 [facility] Monocytes Auto (Bld) [#/Vol] Ordered By: Griselda Krause on 10-24-2022 Monocytes (Bld) [#/Vol] 0.3 10*3/uL 0.0-0.8 [facility] Monocytes/100 WBC Auto (Bld) Ordered By: Griselda Krause on 10-24-2022 Monocytes/100 WBC (Bld) 5.4 % . [facility] Neutrophils Auto (Bld) [#/Vo l]Ordered By: Griselda Krause on 10-24-2022 Neutrophils (Bld) [#/Vol] 2.6 10*3/uL 1.8-7.7 [facility] Neutrophils/100 WBC Auto (Bl d)Ordered By: Griselda Krause on 10-24-2022 Neutrophils/100 WBC (Bld) 51.9 % . [facility] No Panel InformationOrdered By: Griselda Karuse on 10-24-2022 Estimated GFR (CKD-EPI) > 60.0 mL/Min [facility] Creatinine Clearance (Chem N/A [facility] Nucleated erythrocytes [Pres ence] in Blood by Automated countOrdered By: Griselda Krause on 10-24-2022 Nucleated RBC Auto Ql (Bld) 0.1 /100{WBC} 0-0.5 [facility] PSA Screen (Yearly Only)on 0 10-24-2022 PSA Screen (Yearly Only) 0.370 ng/mL Normal 0.000-4.00 0 [facility] Comment on above: Order Comment: Reaso n for Exam Screening for prostate cancer Is patient <50 yrs? Medicare does not pay <50.: N What is the date of the last PSA Screen?: 989991 Is Medicare the insurance?: N Did you verify eligibility (Dx Time) check TestViewGp: YES TO ALL Result Comment: PERF ORMED BY: [place] [address] PATHOLOGIST DOG BEHAVIORIST CARMEN LYNCH M.D. Performed By: #### C BC, CMP, LIPID, TSH3, PSAS #### [address] Platelet mean volume Auto (B ld) [Entitic vol]Ordered By: Griselda Krause on 10-24-2022 Platelet mean volume (Bld) [Entitic vol] 9.6 fL 6.6-10.1 [facility] Platelets Auto (Bld) [#/Vol] Ordered By: Griselda Krause on 10-24-2022 Platelets (Bld) [#/Vol] 247 10*3/uL 150-450 [facility] Potassium [Moles/volume] in Serum or PlasmaOrdered By: Griselda Krause on 10-24-2022 Potassium [Moles/Vol] 4.0 mmol/L 3.5-5.1 [facility] Prostate specific Ag [Mass/v olume] in Serum or PlasmaOrdered By: Griselda Krause on 10-24-2022 Prostate specific Ag [Mass/Vol] 0.370 ng/mL 0.000-4.00 0 [facility] Protein [Mass/volume] in Ser um or PlasmaOrdered By: Griselda Krause on 10-24-2022 Protein [Mass/Vol] 6.3 g/dL 6.4-8.9 [facility] RBC Auto (Bld) [#/Vol]Ordere d By: Griselda Krause on 10-24-2022 RBC (Bld) [#/Vol] 4.61 10*6/uL 3.90-5.60 [facility] Serum or plasma albumin/glob ulin mass ratioOrdered By: Griselda Krause on 10-24-2022 Albumin/Globulin [Mass ratio] 2.0 {ratio} [facility] Serum or plasma anion gap de terminationOrdered By: Griselda Krause on 10-24-2022 Anion gap [Moles/Vol] 11.7 mmol/L 6.0-15.0 [facility] Serum or plasma high density lipoprotein (HDL) cholesterol measurementOrdered By: Griselda Krause on 10-24-2022 Cholesterol in HDL [Mass/Vol] 36 mg/dL 29-71 [facility] Comment on above: HDL CHOL ATP-III CLA SSIFICATION Cardiovascular RiskHDL > or equal to 60 mg/dL LOWHDL < 40 mg/dL HIGH Serum or plasma total choles terol/high density lipoprotein (HDL) cholesterol mass ratOrdered By: Griselda Krause on 10-24-2022 Cholesterol.total/Chol esterol in HDL [Mass ratio] 6.7 {ratio} <5.0 [facility] Sodium [Moles/volume] in Ser um or PlasmaOrdered By: Griselda Krause on 10-24-2022 Sodium [Moles/Vol] 141 mmol/L 136-145 [facility] Thyroid Stimulating Hormoneo n 10-24-2022 TSH Qn 1.26 m[IU]/L Normal 0.45-5.33 [facility] Comment on above: Order Comment: Reaso n for Exam Hyperlipidemia Result Comment: PERF ORMED BY: [facility] [address] [place] [address] PATHOLOGIST DOG BEHAVIORIST CARMEN LYNCH M.D. Performed By: #### C BC, CMP, LIPID, TSH3, PSAS ####[facility] [id number] [place] [id number] [facility] Thyrotropin [Units/volume] i n Serum or PlasmaOrdered By: Griselda Krause on 10-24-2022 TSH Qn 1.26 m[IU]/L 0.45-5.33 [facility] Triglyceride [Mass/volume] i n Serum or PlasmaOrdered By: Griselda Krause on 10-24-2022 Triglyceride [Mass/Vol] 175 mg/dL 0-149 [facility] Comment on above: TRIG ATP III CLASSIF ICATIONTRIG less than 150 mg/dL NormalTRIG 150-199 mg/dL Borderline highTRIG 200-500 mg/dL High TRIG greater than 500 mg/dL Very highStandard traceable to the Center for Disease Conrtrol and Prevention (CDC) test method. Urea nitrogen [Mass/volume] in Serum or PlasmaOrdered By: Griselda Krause on 10-24-2022 Urea nitrogen [Mass/Vol] 15 mg/dL 7-25 [facility] WBC Auto (Bld) [#/Vol]Ordere d By: Griselda Krause on 10-24-2022 WBC (Bld) [#/Vol] 5.0 10*3/uL 4.1-10.5 [facility] BRIEF OP NOTon 09-28-2022 BRIEF OP NOT HNO ID: [id number] Author: Demond Cat APRN.WARE FINISHER Service: Interventional Radiology Author Type: Nurse Practitioner Type: Brief Op Note Filed: 09/28/2022 3:14 PM Note Text: BRIEF OPERATIVE / PROCEDURE NOTE LOG ID: [id number] SURGERY/PROCEDURE DATE: 09/28/2022 INCISION/PROCEDURE START TIME: 1:58 PM INCISION CLOSE/PROCEDURE END TIME: 2:27 PM SURGEON(S)/PROCEDURALIST( S) AND EDUCATION DEPARTMENT REGISTRAR(S): Surgeon(s) and Role: * Demond Cat APRN.WARE FINISHER - Primary No Additional Staff SURGERY/PROCEDURE(S): LP [...] September 28, 2022 TIME: 3:10 PM Normal [facility] Bacteria CSF Culton 09-29-19 23 Bacteria identified Cx Nom (CSF) CULTURE, CSF: No growth 5 days GRAM STAIN: No organisms seen No Polymorphonuclear Leukocytes Few Mononuclear cells Gram stain performed on cytospun specimen. Gram stain results reviewed and confirmed by [facility] microbiology Normal [facility] Comment on above: Performed By: #### 6 06-4 #### [facility] CLIA [id number] [facility] [address] [place] CSF MANUAL DIFFon 09-28-2022 DIF TTL, CSF 100 cells counted Normal [facility] Comment on above: Order Comment: Speci men Type: CEREBROSPINAL FLUID Ordering Facility: [facility] Address: [address] [address] Performed By: #### L [id number], 28862-4 #### [facility] CLIA [id number] [address] [place] [address] [place] LYMPH%, CSF 56 % Normal 50-90 [facility] Comment on above: Order Comment: Speci men Type: CEREBROSPINAL FLUID Ordering Facility: [facility] Address: [address] [place] [address] Performed By: #### L [id number], 83139-4 #### [facility] CLIA [id number] [address] [place] [address] [place] MACRO%, CSF 12 % High <1 [facility] Comment on above: Order Comment: Speci men Type: CEREBROSPINAL FLUID Ordering Facility: [facility] Address: [address] [address] Performed By: #### L [id number], 13382-0 #### [facility] CLIA [id number] [address] [place] [address] [place] MONO%, CSF 32 % Normal 10-50 [facility] Comment on above: Order Comment: Speci men Type: CEREBROSPINAL FLUID Ordering Facility: [facility] Address: [address] [place] [address] Performed By: #### L [id number], 12142-5 #### [facility] CLIA [id number] [address] [place] [address] [place] Cell count panel (CSF)on Clarity (CSF) Clear Normal Clear [facility] Comment on above: Order Comment: Speci men Type: CEREBROSPINAL FLUID Ordering Facility: [facility] Address: [address] [place] [address] Performed By: #### L [id number], 11319-1 #### [facility] CLIA [id number] [address] [place] [address] [place] Clarity (Unsp spec) Not Indicated Normal Clear [facility] Comment on above: Order Comment: Speci men Type: CEREBROSPINAL FLUID Ordering Facility: [facility] Address: [address] [place] [address] Performed By: #### L [id number], 39004-7 #### [facility] CLIA [id number] [address] [place] [address] [place] Color (CSF) Colorless Normal Colorless [facility] Comment on above: Order Comment: Speci men Type: CEREBROSPINAL FLUID Ordering Facility: [facility] Address: [address] [place] [address] Performed By: #### L [id number], 46524-2 #### [facility] CLIA [id number] [address] [place] [address] [place] Color (Spun CSF) Not Indicated Normal Colorless [facility] Comment on above: Order Comment: Speci men Type: CEREBROSPINAL FLUID Ordering Facility: [facility] Address: [address] [place] [address] Performed By: #### L [id number], 16669-6 #### [facility] CLIA [id number] [address] [place] [address] CSF TUBE NUMBER Tube 2 Normal [facility] Comment on above: Order Comment: Lukei nikki Type: CEREBROSPINAL FLUID Ordering Facility: [facility] Address: [address] [place] [address] Performed By: #### L [id number], 94322-2 #### [facility] CLIA [id number] [address] [place] [address] RBC Manual cnt (CSF) [#/Vol] 1 cells/uL Normal 0-5 [facility] Comment on above: Order Comment: Speci nikki Type: CEREBROSPINAL FLUID Ordering Facility: [facility] Address: [address] [place] [address] Performed By: #### L [id number], 93796-2 #### [facility] CLIA [id number] [address] [place] [address] WBC Manual cnt (CSF) [#/Vol] 1 cells/uL Normal 0-5 [facility] Comment on above: Order Comment: Lukei nikki Type: CEREBROSPINAL FLUID Ordering Facility: [facility] Address: [address] [place] [address] Performed By: #### L [id number], 89668-4 #### [facility] CLIA [id number] [address] [place] [address] IR LUMBAR PUNCTURE DIAGon IR LUMBAR PUNCTURE DIAG * * *Final Report* * * DATE OF EXAM: Sep 28 2022 2:41PM [facility] 7594 - IR LUMBAR PUNCTURE DIAG / PROCEDURE REASON: NPH (normal pressure hydrocephalus) ([facility]) [G91.2] * * * * Physician Interpretation [...] guidance was performed in conjunction with the ct scan technician. Plane A, Air Kerma: 20.0 mGy Dose Area Product (DAP): 14566.1 mGy*cm2 Fluoro time: 3:54 min: sec Post-Procedure: [...] procedure was performed by: Demond Cat APRN.CNP Muff Winder: HARPER Transcribe Date/Time: Sep 28 2022 3:15P Dictated by : DEMOND CAT CNP This examination was interpreted and the report reviewed and electronically signed by: DEMOND CAT CNP on Sep 28 2022 3:22PM EST [id number] [facility] NURSING PROGon 09-28-2022 NURSING PROG HNO ID: [id number] Author: Court Magana RN Service: Nursing Author Type: Registered Nurse Type: Nursing Progress Note Filed: 09/28/2022 1:09 PM Note Text: PATIENT EDUCATION TOPIC: PROCEDURE / SURGERY: Pre Procedure Teaching: LP Post Procedure Teaching: LP PATIENT NAME: Jovani Melendez PATIENT LOCATION: [facility] INTERVENTIONAL RADIOL* READINESS TO LEARN COGNITIVE ABILITY: [...] Care Provider Electronically Signed By: Court Magana [facility] MRI BRAIN WO/W IVCONon 09-22 MRI BRAIN WO/W IVCON * * *Final Report* * * DATE OF EXAM: Sep 22 2022 3:02PM [facility] 0295 - MRI BRAIN WO/W [...] NONSPECIFIC PONTINE SIGNAL ABNORMALITY WITHOUT ABNORMAL ENHANCEMENT Muff Winder: PSCLuiza Transcribe Date/Time: Sep 22 2022 3:14P Dictated by : MARY COLORADO, DO This examination was interpreted and the report reviewed and electronically signed by: SALENA MICHAEL MD on Sep 22 2022 3:42PM EST [id number] Normal [facility] CNPBetsey 09-18-2022 CNPN Telephone ([facility]) ----- JOVANI MELENDEZ ([id number]) 1960 M Date Time Provider Department 09/18/22 KELTON PEREZ NSC During your visit today, we recorded the following information about you: Selam Ugarte [facility] 09/18/2022 12:20 PM Signed General Call Caller : Jovani Contact Reason for Call : Pt has follow up questions after most recent visit. Patient requesting return call ? Yes Akash Menzees RN 09/18/2022 12:42 PM Signed Called patient [...] schwannoma (HCC) [D33.3] Order(s):MRI BRAIN WO/W IVCON [[id number]] Order #: [id number] FUTURE iv contrast (will be provided with [...] Ea* 0 (more content not included)... Normal [facility] CNOVon 09-13-2022 CNOV Office Visit (NSCAMN ) ----- MELENDEZJOVANI ([id number]) 1960 M Date Time Provider Department 09/13/22 10:15 AM KELTON PEREZ [facility] During your visit today, we recorded the [...] or pronator drift. Coordination: Romberg sign negative. Jlkcgy-Szmv-Rqeglx Test normal. Gait: Gait abnormal. Comments: Slightly [...] which included preparing to see the patient, mkua-hv-zyhd patient care, completing clinical documentation, obtaining and/or reviewing separately obtained history, performing a medically appropriate examination, counseling and educating the patient/fam (more content not included)... Normal [facility] COVID + FLU Quick Testingon 08-01-2022 SARS-CoV-2 (COVID-19) RNA JER+probe Ql (Unsp spec) Negative [facility] Other COVID + FLU Quick Testing neagative [facility] Other COVID + FLU Quick Testing Negative [facility]pipe Other RSVon 08-01-2022 RSV Ag IA Ql (Unsp spec) Positive [facility] Other Cerebrospinal fluid post-valdez trifugation appearance determinationOrdered By: Elvi Cadena on 07-17-2022 Appearance (Spun CSF) Colorless Colorless [facility] Cerebrospinal fluid sample t ube volume measurementOrdered By: Elvi Cadena on 07-17-2022 Specimen volume (CSF) 22.0 mL [facility] Color CSFOrdered By: Elvi Cadena on 07-17-2022 Color (CSF) Colorless Colorless [facility] Manual cerebrospinal fluid e rythrocytes count (number/volume)Ordered By: Elvi Cadena on 07-17-2022 RBC Manual cnt (CSF) [#/Vol] 0 /uL [facility] Comment on above: The reference interv al and other method performance specifications have not been established for this body fluid. The test result must be integrated into the clinical context for interpretation. No Panel InformationOrdered By: Elvi Cadena on 07-17-2022 CSF Appearance Clear Clear [facility] CSF Tube Number Tube number: 1 [facility] Nucleated cells [#/volume] i n Cerebral spinal fluid by Manual countOrdered By: Elvi Cadena on 07-17-2022 Nucleated cells Manual cnt (CSF) [#/Vol] 0.003 10*3/uL 0-5 [facility] Activated partial thrombopla stin time (aPTT) in platelet poor plasma by coagulation aOrdered By: Loi Wong on 04-16-2022 aPTT Coag (PPP) [Time] 32.8 s 25.1-36.5 Fi [facility] Basophils Auto (Bld) [#/Vol] Ordered By: Loi Wong on 04-16-2022 Basophils (Bld) [#/Vol] 0.1 10*3/uL 0.0-0.2 [facility] Basophils/100 WBC Auto (Bld) Ordered By: Loi Wong on 04-16-2022 Basophils/100 WBC (Bld) 1.2 % . [facility] Creatine kinase [Enzymatic a ctivity/volume] in Serum or PlasmaOrdered By: Loi Wong on 04-16-2022 CK [Catalytic activity/Vol] 69 U/L 22-269 [facility] Creatinine and Glomerular fi ltration rate.predicted panel (S/P/Bld)Ordered By: Loi Wong on 04-16-2022 Creatinine [Mass/Vol] 0.97 mg/dL 0.64-1.27 [facility] Eosinophils Auto (Bld) [#/Vo l]Ordered By: Loi Wong on 04-16-2022 Eosinophils (Bld) [#/Vol] 0.1 10*3/uL 0.0-0.45 [facility] Eosinophils/100 WBC Auto (Bl d)Ordered By: Loi Wong on 04-16-2022 Eosinophils/100 WBC (Bld) 1.2 % . [facility] Erythrocyte distribution wid th Auto (RBC) [Ratio]Ordered By: Loi Wong on 04-16-2022 Erythrocyte distribution width (RBC) [Ratio] 14.1 % 12.0-14.8 [facility] Estimated glomerular filtrat ion rate (GFR) non- AmericanOrdered By: Loi Wong on 04-16-2022 GFR/1.73 sq M.predicted among non-blacks MDRD (S/P/Bld) [Vol rate/Area] > 60 mL/Min [facility] Hematocrit Auto (Bld) [Volum e fraction]Ordered By: Loi Wong on 04-16-2022 Hematocrit (Bld) [Volume fraction] 43.2 % 38.8-50.0 [facility] Hemoglobin [Mass/volume] in BloodOrdered By: Loi Wong on 04-16-2022 Hemoglobin (Bld) [Mass/Vol] 14.7 g/dL 13.0-17.0 [facility] Laboratory - Chemistry and C hemistry - challengeOrdered By: Loi Wong on 04-16-2022 Natriuretic peptide B (Bld) [Mass/Vol] 29.0 pg/mL 5-100 [facility] Laboratory - CoagulationOrde red By: Loi Wong on 04-16-2022 PT Coag (PPP) [Time] 12.0 s 9.0-12.[address] [facility] Laboratory - Hematology and Cell countsOrdered By: Loi Wong on 04-16-2022 Nucleated RBC/100 WBC (Bld) [Ratio] 0.1 % 0-0.5 [facility] Leukocytes [#/volume] in Blo od by Automated countOrdered By: Loi Wong on 04-16-2022 WBC (Bld) [#/Vol] 7.7 10*3/uL 4.5-11.0 [facility] Lymphocytes Auto (Bld) [#/Vo l]Ordered By: Loi Wong on 04-16-2022 Lymphocytes (Bld) [#/Vol] 2.3 10*3/uL 1.00-4.8 [facility] Lymphocytes/100 WBC Auto (Bl d)Ordered By: Loi Wong on 04-16-2022 Lymphocytes/100 WBC (Bld) 29.4 % . [facility] MCH Auto (RBC) [Entitic mass ]Ordered By: Loi Wong on 04-16-2022 MCH (RBC) [Entitic mass] 32.0 pg 27.5-35.2 [facility] MCHC Auto (RBC) [Mass/Vol]Or dered By: Loi Wong on 04-16-2022 MCHC (RBC) [Mass/Vol] 34.0 g/dL 32.5-35.6 [facility] MCV Auto (RBC) [Entitic vol] Ordered By: Loi Wong on 04-16-2022 MCV (RBC) [Entitic vol] 94.0 fL 83.5-101 [facility] Monocytes Auto (Bld) [#/Vol] Ordered By: Loi Wong on 04-16-2022 Monocytes (Bld) [#/Vol] 0.6 10*3/uL 0.0-0.8 [facility] Monocytes/100 WBC Auto (Bld) Ordered By: Loi Wong on 04-16-2022 Monocytes/100 WBC (Bld) 7.7 % . [facility] Neutrophils Auto (Bld) [#/Vo l]Ordered By: Loi Wong on 04-16-2022 Neutrophils (Bld) [#/Vol] 4.7 10*3/uL 1.8-7.7 [facility] Neutrophils/100 WBC Auto (Bl d)Ordered By: Loi Wong on 04-16-2022 Neutrophils/100 WBC (Bld) 60.5 % . [facility] No Panel InformationOrdered By: Loi Wong on 04-16-2022 D-Dimer Quantitative (PE/DVT) < 200 ng/mL 0-243 [facility] Comment on above: The reference range for [...] conditions. Estimated GFR () > 60 mL/Min [facility] Comment on above: GFR estimated refere nce range: According to KDOQI guidelines, <60 ml/min/1.73m2 is sufficient to diagnose a patient with chronic kidney disease. Pharmacy Creatinine Clearance (Chem 79.33 [facility] Platelet mean volume Auto (B ld) [Entitic vol]Ordered By: Loi Wong on 04-16-2022 Platelet mean volume (Bld) [Entitic vol] 9.7 fL 6.6-10.1 [facility] Platelet poor plasma interna tional normalized ratio (INR) by coagulation assay (relatOrdered By: Loi Wong on 04-16-2022 INR Coag (PPP) [Relative time] 1.1 {INR} [facility] Comment on above: INR Therapeutic Rang e [...] 04-16-2022 Platelets (Bld) [#/Vol] 238 10*3/uL 150-450 [facility] RBC Auto (Bld) [#/Vol]Ordere d By: Loi Wong on 04-16-2022 RBC (Bld) [#/Vol] 4.59 10*6/uL 3.90-5.60 [facility] Serum or plasma anion gap de terminationOrdered By: Loi Wong on 04-16-2022 Anion gap [Moles/Vol] 12.4 mmol/L 6.0-15.0 [facility] Serum or plasma calcium paramjit urement (mass/volume)Ordered By: Loi oWng on 04-16-2022 Calcium [Mass/Vol] 9.0 mg/dL 8.2-10.2 [facility] Serum or plasma chloride robby surement (moles/volume)Ordered By: Loi Wong on 04-16-2022 Chloride [Moles/Vol] 103 mmol/L 95-[address] [facility] Serum or plasma creatine kin ase MB (CKMB)/total creatine kinase (CK) ratio by calculaOrdered By: Loi Wong on 04-16-2022 CK.MB Calc [Catalytic fraction] 2.0 % 0.00-2.50 [facility] Serum or plasma creatine kin ase MB measurement (mass/volume)Ordered By: Loi Wong on 04-16-2022 CK.MB [Mass/Vol] 1.4 ng/mL 0.6-6.3 [facility] Serum or plasma glucose paramjit urement (mass/volume)Ordered By: Loi Wong on 04-16-2022 Glucose [Mass/Vol] 88 mg/dL 70-100 [facility] Comment on above: ADA recommended refe rence rangeRandom Glucose Reference Range is dependent on time and content of last meal. Glucose of more than 200 mg/dL in a nonstressed, ambulatory subject supports the diagnosis of Diabetes Mellitus. Serum or plasma potassium me asurement (moles/volume)Ordered By: Loi Wong on 04-16-2022 Potassium [Moles/Vol] 4.3 mmol/L 3.5-5.1 [facility] Serum or plasma sodium measu rement (moles/volume)Ordered By: Loi Wong on 04-16-2022 Sodium [Moles/Vol] 135 mmol/L 136-146 [facility] Serum or plasma total carbon dioxide measurement (moles/volume)Ordered By: Loi Wong on 04-16-2022 CO2 [Moles/Vol] 23.9 mmol/L 22.0-30.0 [facility] Serum or plasma urea nitroge n measurement (mass/volume)Ordered By: Loi Wong on 04-16-2022 Urea nitrogen [Mass/Vol] 12 mg/dL 9-23 [facility] Troponin I.cardiac [Mass/vol ume] in Serum or Plasma by High sensitivity methodOrdered By: Loi Wong on 04-16-2022 Troponin I.cardiac High sensitivity method [Mass/Vol] 5 pg/mL 0-20 [facility] CNPNon 03-27-2022 CNPN Telephone ([facility]) ----- JOVANI MELENDEZ ([id number]) 1960 [facility] Date Time Provider Department 03/27/22 ASYA GREENE During your visit today, we recorded the following information about you: Asya Greene RN 03/27/2022 12:16 PM Signed Patient got a text over the weekend about an appointment with a [facility] neurosurgeon. He has not seen you [...] states that he is seeing neurology in [place] and they do not feel he needs [...] Encounter Status:Closed by ASYA GREENE on 03/27/22 [facility] Hyun 03-16-2022 LUCION Telephone ([facility]) ----- JOVANI MELENDEZ ([id number]) 1960 M [facility] Date Time Provider Department 03/16/22 SELF NSCAMN During your visit today, we recorded the following information about you: Florentino Guan Coord 03/16/2022 12:27 PM Signed MD Memo Gomez MD Future Order Information Expires 10/13/22 Associated Diagnoses 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 Yes Pamela Nascimento APRN.WARE FINISHER 03/16/2022 2:55 PM Signed Time Frame: Next available Provider: Intra-axial neurosurgeon AND Neuro-Oncology (same day) Referring: Memo Cole MD Please instruct patient to hand carry/ upload images prior to appt Dx: Low grade glioma Patient: Jovani Melendez Address: Jovani Melendez [id number] [place] [address] Per Triage: Jovani Melendez is a 61 year old male that requests evaluation of previously diagnosed possible low grade glioma. Patient expectations: Second opinion Tumor Specifics: Location: brain Previous Evaluations: MRI w/wo contrast (10/05/21): 10/05/2021 [place] Brain [facility] Impression: 1. There is T2 and T2 [...] Treatments: N/A Impression: As above. Pamela Nascimento APRN.WARE FINISHER March 16, 2022 Allergies As of Date: [...] Status:Closed by FLORENTINO ROSALES on 03/16/22 Normal [facility] COVID Quick Testingon 2021 Result Negative tarpipe Other Quick Fluon 03-16-2022 FLUAV Ab CF (S) [Titer] Negative [facility] Other FLUBV Ab CF (S) [Titer] Negative [facility] Other MRI Brain w/o + w/on 022 [...] by Jillian Morales on 01/18/2022 1413 Normal [facility] Cell Count + Differential, C SFon 11-07-2021 WBC (Bld) [#/Vol] 0.006 10*3/uL above high threshold 0 - 5 [facility] Work Phone: [phone] Cell Count + Differential, CSF 70 [...] Phone: [phone] Albumin [Mass/Vol] 4578 mg/dL [phone] [facility] Work Phone: [phone] IgG (CSF) [Mass/Vol] 2.2 mg/dL 0.0-6.0 [facility] Work Phone: [phone] IgG [Mass/Vol] 496 mg/dL below low threshold [phone] [facility] Work Phone: [phone] Comment on above: REFERENCE INTERVAL: Immunoglobulin GAccess complete set of age- and/or gender-specific reference intervals for this test in the [facility] Test Directory ([employer]). IgG clearance/Albumin clearance (S+CSF) [Ratio] 0.56 {ratio} 0.28-0.66 [facility] Work Phone: [phone] IgG synthesis rate Calc (S+CSF) [Mass/Time] 0.5 mg/d <=8.0 [facility] Work Phone: [phone] IgG/Albumin (CSF) [Mass ratio] 0.06 {ratio} below low threshold 0.09-0.25 [facility] Work Phone: [phone] Oligoclonal bands Elph (CSF) [Interp] Negative Negative [facility] Work Phone: [phone] Oligoclonal bands Elph Curtis (CSF) [Interp] See Note [facility] Work Phone: [phone] Comment on above: Isoelectric focusing /immunofixation revealed no oligoclonal bands in either the CSF or the serum. This is considered to be a negative result for oligoclonal bands. Approximately 5 percent of patients with clinically definitive multiple sclerosis will have a negative result.Performed By: [facility] [place] [id number] Director: Paula Middleton MD Albumin (CSF) [Mass/Vol] Canceled [facility] Work Phone: [phone] Albumin [Mass/Vol] Canceled [facility] Work Phone: [phone] Glucose (CSF) [Mass/Vol] 56 mg/dL 40 - 70 [facility] Work Phone: [phone] IgG (CSF) [Mass/Vol] Canceled [facility] Work Phone: [phone] IgG [Mass/Vol] Canceled [facility] [...] Phone: [phone] [facility] Work Phone: [phone] Canceled [facility] Work Phone: [phone] Path Review, CSFon 2 Path Review, CSF RMaria RREHANA [facility] Work Phone: [phone] Comment on above: By her/his signature above, the Pathologist listed as making the final interpretation certifies that she/he has personally reviewed this case. HEMORRHAGIC SPECIMEN, NO MALIGNANT CELLS IDENTIFIED. 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 In [...] He saw Dr. Ba a neurologist in [facility]. He describes his vision as seeing [...] Medical History History of squamous cell carcinoma (V1.) (Z85.89) Surgical History History of Excision melanoma [...] Tablet Vitals Vital Signs Recorded: 03Nov2021 09:38AM Sgfyiziqpsm82.2 F Heart Rate63 Dqklunewyvp50 Djysxaur212 Xhyibfgjz63 Blood Pressure Cuff SizeAdult Height5 ft 7.13 in Pazdoj413 lb 6 oz BMI Tbrmspwoid55.05 kg/m2 BSA Calculated1.91 Tobacco Usea) Yes Fall Screeninga) No falls within the last year O2 Dxpasqgmaq57 Pain Scale7 Physical Exam Constitutional - General appearance: No acute distress, well de (more content not included)... 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 In [...] He saw Dr. Ba a neurologist in [facility]. He describes his vision as seeing [...] MG Oral Tablet Vitals Vital Signs Recorded: 10Hea7438 09:38AM Lwvpscczdwq33.2 F Heart Rate63 Vtripznnouv73 Ymbdixbi552 Zdvllfawa40 Blood Pressure Cuff SizeAdult Height5 ft 7.13 in Czkdjb161 lb 6 oz BMI Zjpouwykvl75.05 kg/m2 BSA Calculated1.91 Tobacco Usea) Yes Fall Screeninga) No falls within the last year O2 Khabnsvmpo30 Pain Scale7 Ph (more content not included)... Normal [facility] COVID + FLU Quick Testingon 06-30-2021 SARS-CoV-2 (COVID-19) RNA JER+probe Ql (Unsp spec) Negative [employer] Other COVID + FLU Quick Testing Negative tarpipe Other COVID Quick Testingon 2020 Result Negative [employer] [facility] [employer] Other Basophils Auto (Bld) [#/Vol] on 09-20-2020 Basophils (Bld) [#/Vol] 0.0 10*3/uL 0.0-0.2 [facility] Basophils/100 WBC Auto (Bld) on 09-20-2020 Basophils/100 WBC (Bld) 0.6 % [facility] Blood hemoglobin measurement (mass/volume)on 09-20-2020 Hemoglobin (Bld) [Mass/Vol] 14.4 g/dL 13.0-17.0 [facility] Blood leukocytes automated c ount (number/volume)on 09-20-2020 WBC (Bld) [#/Vol] 7.4 10*3/uL 4.5-11.0 [facility] Eosinophils Auto (Bld) [#/Vo l]on 09-20-2020 Eosinophils (Bld) [#/Vol] 0.1 10*3/uL 0.0-0.45 [facility] Eosinophils/100 WBC Auto (Bl d)on 09-20-2020 Eosinophils/100 WBC (Bld) 0.9 % [facility] Erythrocyte distribution wid th Auto (RBC) [Ratio]on 09-20-2020 Erythrocyte distribution width (RBC) [Ratio] 14.6 % 12.0-14.8 [facility] Hematocrit Auto (Bld) [Volum e fraction]on 09-20-2020 Hematocrit (Bld) [Volume fraction] 41.7 % 38.8-50.0 [facility] Lymphocytes Auto (Bld) [#/Vo l]on 09-20-2020 Lymphocytes (Bld) [#/Vol] 1.6 10*3/uL 1.00-4.8 [facility] Lymphocytes/100 WBC Auto (Bl d)on 09-20-2020 Lymphocytes/100 WBC (Bld) 21.3 % [facility] MCH Auto (RBC) [Entitic mass ]on 09-20-2020 MCH (RBC) [Entitic mass] 32.4 pg 27.5-35.2 [facility] MCHC Auto (RBC) [Mass/Vol]on 09-20-2020 MCHC (RBC) [Mass/Vol] 34.5 g/dL 32.5-35.6 [facility] MCV Auto (RBC) [Entitic vol] on 09-20-2020 MCV (RBC) [Entitic vol] 93.9 fL 83.5-101 [facility] Monocytes Auto (Bld) [#/Vol] on 09-20-2020 Monocytes (Bld) [#/Vol] 0.6 10*3/uL 0.0-0.8 [facility] Monocytes/100 WBC Auto (Bld) on 09-20-2020 Monocytes/100 WBC (Bld) 8.6 % [facility] Neutrophils Auto (Bld) [#/Vo l]on 09-20-2020 Neutrophils (Bld) [#/Vol] 5.1 10*3/uL 1.8-7.7 [facility] Neutrophils/100 WBC Auto (Bl d)on 09-20-2020 Neutrophils/100 WBC (Bld) 68.6 % [facility] Otheron 09-20-2020 Nucleated RBC/100 WBC (Bld) [Ratio] 0.0 % 0-0.5 [facility] Platelet mean volume Auto (B ld) [Entitic vol]on 09-20-2020 Platelet mean volume (Bld) [Entitic vol] 9.3 fL 6.6-10.1 [facility] Platelets Auto (Bld) [#/Vol] on 09-20-2020 Platelets (Bld) [#/Vol] 182 10*3/uL 150-450 [facility] RBC Auto (Bld) [#/Vol]on RBC (Bld) [#/Vol] 4.44 10*6/uL 3.90-5.60 [facility] Body fluid albumin measureme nt (mass/volume)on 09-13-2020 Albumin (Body fld) [Mass/Vol] 4.3 g/dL 3.2-5.5 [facility] Cholesterol [Mass/volume] in Serum or Plasmaon 09-13-2020 Cholesterol [Mass/Vol] 219 mg/dL 140-200 [facility] Comment on above: Chol less than 200 m g/dl low riskChol 201-239 mg/dl borderline riskChol 240 mg/dl and greater high risk Cholesterol in LDL Calc [Mas s/Vol]on 09-13-2020 Cholesterol in LDL [Mass/Vol] 149 mg/dL 0-100 [facility] Comment on above: LDL ATP III CLASSIFI CATIONLDL less than 100 mg/dL OptimalLDL 100-129 mg/dL Near or above optimalLDL 130-159 mg/dL Borderline highLDL 160-189 mg/dL HighLDL greater than 189 mg/dL Very high Cholesterol in VLDL Calc [Ma ss/Vol]on 09-13-2020 Cholesterol in VLDL [Mass/Vol] 28 mg/dL [facility] Creatinine and Glomerular fi ltration rate.predicted panel (S/P/Bld)on 09-13-2020 Creatinine [Mass/Vol] 0.89 mg/dL 0.64-1.27 [facility] GFR/1.73 sq M.predicted roverto g non-blacks MDRD (S/P/Bld) [Vol rate/Area]on 09-13-2020 GFR/1.73 sq M predicted among non-blacks MDRD (S/P/Bld) [Vol rate/Area] > 60 mL/Min [facility] Globulin Calc (S) [Mass/Vol] on 09-13-2020 Globulin (S) [Mass/Vol] 2.0 g/dL [facility] No Panel Informationon 09-13 Estimated GFR () > 60 mL/Min [facility] Comment on above: GFR estimated refere nce range: According to KDOQI guidelines, <60 ml/min/1.73m2 is sufficient to diagnose a patient with chronic kidney disease. Otheron 09-13-2020 GFR/1.73 sq M.predicted MDRD (S/P/Bld) [Vol rate/Area] > 60 mL/Min [facility] Comment on above: GFR estimated refere nce range: According to KDOQI guidelines, <60 ml/min/1.73m2 is sufficient to diagnose a patient with chronic kidney disease. Pharmacy Creatinine Clearance (Chem N/A [facility] Prostate Specific Antigen Screen 0.480 ng/mL 0.000-4.00 0 [facility] Protein [Mass/volume] in Ser um or Plasmaon 09-13-2020 Protein [Mass/Vol] 6.3 g/dL 6.1-7.9 [facility] SARS-CoV-2 (COVID-19) IgG Ab [Presence] in Serum or Plasma by Immunoassayon 09-13-2020 SARS-CoV-2 (COVID-19) IgG Ab [Presence] in Serum or Plasma by Immunoassay Positive Negative [facility] Comment on above: Results suggest rece nt or prior infection with SARS-CoV-2.Correlation with epidemiologic risk factors and otherclinical and laboratory findings is recommended. Serologicresults should not be used as the sole basis to diagnose orexclude recent SARS-CoV-2 infection. False positive resultsinfrequently occur due to prior infection with other humanCoronaviruses.This assay was performed using the [employer](R)SARS-CoV-2 S1/S2 IgG assay.This assay detects antibodies against SARS-CoV-2 spikeprotein including the receptor binding domain (RBD).Performed at: [facility] [id number] Director: Florencio Wu PhD, Phone: [phone] SARS-CoV-2 (COVID-19) IgG IA Ql Positive Negative [facility] Comment on above: Results suggest rece nt or prior infection with SARS-CoV-2.Correlation with epidemiologic risk factors and otherclinical and laboratory findings is recommended. Serologicresults should not be used as the sole basis to diagnose orexclude recent SARS-CoV-2 infection. False positive resultsinfrequently occur due to prior infection with other humanCoronaviruses.This assay was performed using the [employer](R)SARS-CoV-2 S1/S2 IgG assay.This assay detects antibodies against SARS-CoV-2 spikeprotein including the receptor binding domain (RBD).Performed at: [facility] [id number] Director: Florencio Wu PhD, Phone: [phone] Serum or plasma alanine mclaughlin otransferase measurement without P-5'-P (enzymatic activion 09-13-2020 ALT No additional P-5'-P [Catalytic activity/Vol] 19 U/L [facility] Serum or plasma albumin/glob ulin mass ratioon 09-13-2020 Albumin/Globulin [Mass ratio] 2.2 {ratio} [facility] Serum or plasma alkaline fuentes sphatase measurement (enzymatic activity/volume)on 09-13-2020 ALP [Catalytic activity/Vol] 53 U/L 32 [facility] Serum or plasma aspartate am inotransferase measurement (enzymatic activity/volume)on 09-13-2020 AST [Catalytic activity/Vol] 22 U/L 10 [facility] Serum or plasma calcium paramjit urement (mass/volume)on 09-13-2020 Calcium [Mass/Vol] 9.1 mg/dL 8.2-10.2 [facility] Serum or plasma chloride robby surement (moles/volume)on 09-13-2020 Chloride [Moles/Vol] 105 mmol/L 95-114 [facility] Serum or plasma glucose paramjit urement (mass/volume)on 09-13-2020 Glucose [Mass/Vol] 97 mg/dL 70-100 [facility] Comment on above: ADA recommended refe rence rangeRandom Glucose Reference Range is dependent on time and content of last meal. Glucose of more than 200 mg/dL in a nonstressed, ambulatory subject supports the diagnosis of Diabetes Mellitus. Serum or plasma high density lipoprotein (HDL) cholesterol measurementon 09-13-2020 Cholesterol in HDL [Mass/Vol] 41 mg/dL [facility] Comment on above: HDL CHOL ATP-III CLA SSIFICATION Cardiovascular RiskHDL > or equal to 60 mg/dL LOWHDL < 40 mg/dL HIGH Serum or plasma potassium me asurement (moles/volume)on 09-13-2020 Potassium [Moles/Vol] 4.2 mmol/L 3.5-5.1 [facility] Serum or plasma sodium measu rement (moles/volume)on 09-13-2020 Sodium [Moles/Vol] 135 mmol/L 136-146 [facility] Serum or plasma thyroid stim ulating hormone (TSH) measurement by high sensitivity meton 09-13-2020 TSH Qn 1.66 u[iU]/mL 0.45-5.33 [facility] Serum or plasma total biliru bin measurement (mass/volume)on 09-13-2020 Bilirubin [Mass/Vol] 0.9 mg/dL 0.3-1.2 [facility] Serum or plasma total carbon dioxide measurement (moles/volume)on 09-13-2020 CO2 [Moles/Vol] 22.5 mmol/L 22.0-30.0 [facility] Serum or plasma total choles terol/high density lipoprotein (HDL) cholesterol mass gia 09-13-2020 Cholesterol.total/Chol esterol in HDL [Mass ratio] 5.3 {ratio} [facility] Serum or plasma urea nitroge n measurement (mass/volume)on 09-13-2020 Urea nitrogen [Mass/Vol] 12 mg/dL 9-23 [facility] TSH DL <= 0.005 mIU/L Qnon 0 09-13-2020 TSH Qn 1.66 m[IU]/L 0.45-5.33 [facility] Triglyceride [Mass/volume] i n Serum or Plasmaon 09-13-2020 Triglyceride [Mass/Vol] 144 mg/dL 35-149 [facility] Comment on above: TRIG ATP III [...] eye. Coleen Grajeda M.D. aek Dictated: 04/14/2019 #[id number] Typed 04/14/2019 #[id number] cc: Coleen Graejda M.D. [facility] Comment on above: Result Comment: Elec tronically Signed By: Taras NORRIS, Coleen Mullins\.br\Date and Time Signed: 04/18/19 09:54 EDT Operative [...] and inferior fornices of the eye. A [employer] manometer was set on the eye at [...] Room in good condition. Coleen Grajeda M.D. gideon Dictated: 04/14/2019 #[id number] Typed: 04/15/2019 #[id number] cc: Coleen Grajeda M.D. [facility] Comment on above: Result Comment: Elec tronically Signed By: Coleen Grajeda MD\.br\Date and Time Signed: 04/18/19 09:54 EDT Coding Summary.on 04-15-2019 Coding Summary. 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 Name: JOVANI MELENDEZ/Sex: 1960 Male Med Rec #: [id number] Physician: Coleen Grajeda MD Financial #: [id number] Pt. Type: A Room/Bed: Admit/Disch: 04/14/19 12:59:00 - 04/14/19 16:00:00 Institution: Case Times FT Entry 1 Patient Times In Room 04/14/19 14:55:00 Out Room 04/14/19 15:17:00 Procedure Times Start 04/14/19 15:03:00 Stop 04/14/19 15:14:00 Anesthesia Times Last Modified By: Asya Alves CST 04/14/19 15:16:26 General Comments: 04/15/19 Chart opened to review and send charges Avinash Long COLORER HID[employer] SKINS Case Attendance FT Entry 1 Entry 2 Entry 3 Case Attendee Coleen Grajeda MD, CST, Asya Karimi RN, Johnathon Mullins Role Performed Surgeon - Primary Scrub - Primary Steel Pourer - Primary Time In 04/14/19 14:55:00 04/14/19 [...] VERNON, Pauly GOODEN, RN, Tierra Role Performed Steel Pourer - Primary Steel Pourer - Relief Time In 04/14/19 14:55:00 04/14/19 14:55:00 Time Out 04/14/19 15:17:00 04/14/19 15:00:00 Procedure CATARACT EXTRACTION W/ CATARACT EXTRACTION W/ INTRAOCULAR LENS(Left) INTRAOCULAR LENS(Left) Comments Last Modified By: Sachi RN, Johnathon Karimi RN, Johnathon Mullins 04/14/19 [...] Unable to Visualize, Outcomes Met? Yes Warm, [place], Dry Last Modified By: Johnathon Karimi RN [...] Met? Yes Yes Yes Last Modified By: Sachi VERNON, Johnathon Hurtado RN, RN, Kail M 04/14/19 15:03:31 04/14/19 15:03:31 [...] RN Patient Status Stable Skin. Condition Warm, [place], Dry Description unchanged Airway Maintenance Oxygen in [...] safely administered during the perioperative period For [place] please see scanned medication reconcilliation form for medications used at the field during the procedure. Implant Log FT Pre-Care Text: Records devices implanted during the operative or invasive procedure Entry 1 Procedure CATARACT EXTRACTION W/ Implant/Explant Implant INTRAOCULAR LENS(Left) Implant Identification FT Description MONTY IOL [id number] SOFPORT Serial Number [id number] SIZE 21.0 [[id number] 21.0][F] Lot Number [id number] Clinical Trials Specialist FT-BAUSCH [employer] LOMB Catalog ?# [id number] 21.0[F] Expiration Date 10/16/23 Unique Device [id number] Identifier (BERNARD) Usage Data FT Implant Site [...] 15:16 Asya Alves CST 04/15/19 14:44 Normal [facility] Inpatient Patient Summaryon 04-14-2019 Inpatient Patient Summary [facility] Clinical Discharge Instructions PERSON INFORMATION Name: MELENDEZJENNIFERJOVANI C PHYSICIANS Admitting Physician: Coleen Grajeda MD Attending Physician: Coleen Grajeda MD PCP: JILLIAN BARONE DO Discharge Diagnosis: Cataract Comment: PATIENT EDUCATION INFORMATION Instructions: Medication Leaflets: Follow up: With: Address: When: Coleen Grajeda [address], [place] [address] [facility] () Comments: Call physician if symptoms worsen Keep scheduled appointment MEDICATION LIST Comment: Normal [facility] Main OR PACU II [facility]ordon Main OR PACU II Record PACU Phase II Doc ument Type FT Summary Primary Physician: Coleen Grajeda MD Finalized Date/Time: 04/14/19 17:54:42 Pt. Name: JOVANI MELENDEZ/Sex: 1960 Male Med Rec #: [id number] Physician: Coleen Grajeda MD Financial #: [id number] Pt. Type: A Room/Bed: [facility]/ Admit/Disch: 04/14/19 12:59:23 - Institution: Case Times [...] By: Lizeth Rush RN 04/14/19 17:54 Normal [facility] Main OR Preoperative Recordo n 04-14-2019 Main OR Preoperative Record PreOp Document Type FT Summary Primary Physician: Coleen Grajeda MD Finalized Date/Time: 04/14/19 15:14:03 Pt. Name: JOVANI MELENDEZ/Sex: 1960 Male Med Rec #: [id number] Physician: Coleen Grajeda MD Financial #: [id number] Pt. Type: A Room/Bed: AS12/01 Admit/Disch: 04/14/19 12:59:23 - Institution: Case Times [...] By: Johnathon Karimi RN 04/14/19 15:14 Normal [facility] Patient Education - Texton 1 Patient Education - Text Normal [facility] Vital Signs Date Time Vital Sign Value Performing Clinician Facility 09-05-2023 13:44-0400 Diastolic blood pressure 99 mm[Hg] DO Griselda Kuns Work Phone: [facility] 09-05-2023 13:44-0400 Systolic blood pressure 160 mm[Hg] DO Griselda Kuns Work Phone: [facility] 09-05-2023 13:41-0400 Body height 172.72 cm DO Griselda Kuns Work Phone: [facility] 09-05-2023 13:41-0400 Body mass index (BMI) [Ratio] 27.8 kg/m2 DO Griselda Kuns Work Phone: [facility] 09-05-2023 13:41-0400 Body weight 83 kg DO Griselda Kuns Work Phone: [facility] 09-05-2023 13:41-0400 Heart rate 66 /min DO Griselda Kuns Work Phone: [facility] 09-05-2023 13:41-0400 Respiratory rate 18 /min DO Griselda Kuns Work Phone: [facility] 09-05-2023 13:41-0400 SaO2% (BldA) [Mass fraction] 99 % DO Griselda Kuns Work Phone: [facility] 09-05-2023 11:58-0400 Body height 172.72 cm DO Griselda Kuns Work Phone: [facility] 09-05-2023 11:58-0400 Body mass index (BMI) [Ratio] 27.3 kg/m2 DO Griselda Kuns Work Phone: [facility] 09-05-2023 11:58-0400 Body temperature 97.8 [degF] DO Griselda Kuns Work Phone: [facility] 09-05-2023 11:58-0400 Body weight 81.64 kg DO Griselda Kuns Work Phone: [facility] 09-05-2023 11:58-0400 Diastolic blood pressure 92 mm[Hg] DO Griselda Kuns Work Phone: [facility] 09-05-2023 11:58-0400 Heart rate 71 /min DO Griselda Kuns Work Phone: [facility] 09-05-2023 11:58-0400 SaO2% (BldA) [Mass fraction] 96 % DO Griselda Kuns Work Phone: [facility] 09-05-2023 11:58-0400 Systolic blood pressure 160 mm[Hg] DO Griselda Kuns Work Phone: [facility] 08-15-2023 15:41-0500 Body height 172.72 cm DO Griselda Kuns Work Phone: [facility] 08-15-2023 15:41-0500 Body mass index (BMI) [Ratio] 28.1 kg/m2 DO Griselda Kuns Work Phone: [facility] 08-15-2023 15:41-0500 Body weight 84.08 kg DO Griselda Kuns Work Phone: [facility] 08-15-2023 15:41-0500 Diastolic blood pressure 72 mm[Hg] DO Griselda Kuns Work Phone: [facility] 08-15-2023 15:41-0500 Heart rate 62 /min DO Griselda Kuns Work Phone: [facility] 08-15-2023 15:41-0500 Respiratory rate 18 /min DO Griselda Kuns Work Phone: [facility] 08-15-2023 15:41-0500 SaO2% (BldA) [Mass fraction] 99 % DO Griselda Kuns Work Phone: [facility] 08-15-2023 15:41-0500 Systolic blood pressure 128 mm[Hg] DO Griselda Kuns Work Phone: [facility] 08-02-2023 13:11-0500 Body height 172.72 cm DO Griselda Kuns Work Phone: [facility] 08-02-2023 13:11-0500 Body mass index (BMI) [Ratio] 27.9 kg/m2 DO Griselda Kuns Work Phone: [facility] 08-02-2023 13:11-0500 Body weight 83.46 kg DO Griselda Kuns Work Phone: [facility] 08-02-2023 13:11-0500 Diastolic blood pressure 70 mm[Hg] DO Griselda Kuns Work Phone: [facility] 08-02-2023 13:11-0500 Heart rate 68 /min DO Griselda Kuns Work Phone: [facility] 08-02-2023 13:11-0500 Respiratory rate 16 /min DO Griselda Kuns Work Phone: [facility] 08-02-2023 13:11-0500 SaO2% (BldA) [Mass fraction] 97 % DO Griselda Kuns Work Phone: [facility] 08-02-2023 13:11-0500 Systolic blood pressure 130 mm[Hg] DO Griselda Kuns Work Phone: [facility] 07-02-2023 09:30-0500 Body height 172.72 cm Griselda Kuns Other [facility] 07-02-2023 09:30-0500 Body mass index (BMI) [Ratio] 28.28 kg/m2 Griselda Kuns Other [employer] [facility] [employer] Other 07-02-2023 09:30-0500 Body weight 84.37 kg Griselda Kuns Other [employer] Other 07-02-2023 09:30-0500 Body weight 84.36 kg DO Griselda Kuns Work Phone: [facility] 07-02-2023 09:30-0500 Diastolic blood pressure 92 mm[Hg] Griselda Kuns Other [facility] 07-02-2023 09:30-0500 Respiratory rate 16 /min Griselda Kuns Other [employer] Other 07-02-2023 09:30-0500 SaO2% (BldA) [Mass fraction] 97 % Griselda Kuns Other [facility] [employer] Other 07-02-2023 09:30-0500 Systolic blood pressure 160 mm[Hg] Griselda Kuns Other [facility] 05-31-2023 13:45-0500 Body height 172.72 cm Griselda Kuns Other [facility] 05-31-2023 13:45-0500 Body mass index (BMI) [Ratio] 27.37 kg/m2 Griselda Kuns Other [employer] Other 05-31-2023 13:45-0500 Body weight 81.65 kg Griselda Krause Other [employer] Other 05-31-2023 13:45-0500 Body weight 81.64 kg DO Griselda Krause Work Phone: [facility] 05-31-2023 13:45-0500 Diastolic blood pressure 80 mm[Hg] Griselda Andreas Other [facility] 05-31-2023 13:45-0500 Respiratory rate 18 /min Griselda Krause Other [employer] Other 05-31-2023 13:45-0500 SaO2% (BldA) [Mass fraction] 98 % Griselda Krause Other [employer] Other 05-31-2023 13:45-0500 Systolic blood pressure 120 mm[Hg] Griselda Krause Other [facility] 05-30-2023 11:15-0500 Body height 172.72 cm Ruddy Harvey Other [facility] 05-30-2023 11:15-0500 Body mass index (BMI) [Ratio] 27.52 kg/m2 Ruddy Harvey Other [employer] Other 05-30-2023 11:15-0500 Body temperature 97.8 [degF] Ruddy Harvey Other [employer] Other 05-30-2023 11:15-0500 Body weight 82.1 kg Ruddy Harvey Other [facility] 05-30-2023 11:15-0500 SaO2% (BldA) [Mass fraction] 98 % Ruddy Harvey Other [facility] [employer] Other 05-15-2023 13:20-0500 Body height 172.72 cm Lilliam Cason Other [facility] 05-15-2023 13:20-0500 Body mass index (BMI) [Ratio] 27.52 kg/m2 Lilliam Grecooroge Other [employer] [facility] [employer] Other 05-15-2023 13:20-0500 Body weight 82.1 kg Lilliam Cason Other [facility] 05-15-2023 13:20-0500 Diastolic blood pressure 84 mm[Hg] Lilliam Grecooroge Other [facility] 05-15-2023 13:20-0500 Respiratory rate 18 /min Lilliam Grecooroge Other [employer] [facility] [employer] Other 05-15-2023 13:20-0500 SaO2% (BldA) [Mass fraction] 98 % Lilliam Grecooroge Other [employer] [facility] [employer] Other 05-15-2023 13:20-0500 Systolic blood pressure 142 mm[Hg] Lilliam Grecooroge Other [facility] 05-07-2023 13:16-0500 Diastolic blood pressure 78 mm[Hg] DO Griselda Kuns Work Phone: [facility] 05-07-2023 13:16-0500 Heart rate 75 /min DO Griselda Kuns Work Phone: [facility] 05-07-2023 13:16-0500 Respiratory rate 16 /min DO Griselda Kuns Work Phone: [facility] 05-07-2023 13:16-0500 SaO2% (BldA) [Mass fraction] 96 % DO Griselda Kuns Work Phone: [facility] 05-07-2023 13:16-0500 Systolic blood pressure 135 mm[Hg] DO Griselda Kuns Work Phone: [facility] 05-07-2023 10:30-0500 Inhaled oxygen flow rate 3 L/min DO Griselda Kuns Work Phone: [facility] 05-07-2023 08:29-0500 Body height 172.72 cm DO Griselda Kuns Work Phone: [facility] 05-07-2023 08:29-0500 Body weight 79.37 kg DO Griselda Kuns Work Phone: [facility] 05-03-2023 09:15-0500 Body height 172.72 cm Ruddy Harvey Other [employer] Other 05-03-2023 09:15-0500 Body mass index (BMI) [Ratio] 27.06 kg/m2 Ruddy Harvey Other [employer] Other 05-03-2023 09:15-0500 Body temperature 97.8 [degF] Ruddy Harvey Other [employer] Other 05-03-2023 09:15-0500 Body weight 80.74 kg Ruddy Harvey Other [employer] Other 05-03-2023 09:15-0500 Diastolic blood pressure 78 mm[Hg] Ruddy Harvey Other [employer] Other 05-03-2023 09:15-0500 SaO2% (BldA) [Mass fraction] 97 % Ruddy Harvey Other [employer] Other 05-03-2023 09:15-0500 Systolic blood pressure 146 mm[Hg] Ruddy Harvey Other [employer] Other 05-01-2023 10:30-0500 Body height 172.72 cm Griseldakeith Mendezs Other [employer] Other 05-01-2023 10:30-0500 Body mass index (BMI) [Ratio] 27.06 kg/m2 Griselda Kuns Other [employer] Other 05-01-2023 10:30-0500 Body weight 80.74 kg Griselda Kuns Other [employer] Other 05-01-2023 10:30-0500 Diastolic blood pressure 80 mm[Hg] Griselda Kuns Other [employer] Other 05-01-2023 10:30-0500 Respiratory rate 18 /min Griselda Kuns Other [employer] Other 05-01-2023 10:30-0500 SaO2% (BldA) [Mass fraction] 96 % Griselda Kuns Other [employer] Other 05-01-2023 10:30-0500 Systolic blood pressure 144 mm[Hg] Griselda Kuns Other [employer] Other 04-11-2023 10:40-0400 Body height 172.72 cm Lilliam Cason Other [employer] Other 04-11-2023 10:40-0400 Body mass index (BMI) [Ratio] 26.67 kg/m2 Lilliam Grecooroge Other [employer] Other 04-11-2023 10:40-0400 Body weight 79.56 kg Lilliam Cason Other [facility] [employer] Other 04-11-2023 10:40-0400 Diastolic blood pressure 80 mm[Hg] Lilliam Cason Other [employer] Other 04-11-2023 10:40-0400 SaO2% (BldA) [Mass fraction] 96 % Lilliam Cason Other [employer] [facility] [employer] Other 04-11-2023 10:40-0400 Systolic blood pressure 148 mm[Hg] Lilliam Cason Other [facility] [employer] Other 03-21-2023 02:42-0400 Diastolic blood pressure 98 mm[Hg] DO Griselda #[employer] Work Phone: [facility] 03-21-2023 02:42-0400 Heart rate 72 /min DO Griselda [employer] Work Phone: [facility] 03-21-2023 02:42-0400 Respiratory rate 16 /min DO Griselda Kuns Work Phone: [facility] 03-21-2023 02:42-0400 SaO2% (BldA) [Mass fraction] 97 % DO Griselda [employer] Work Phone: [facility] 03-21-2023 02:42-0400 Systolic blood pressure 170 mm[Hg] DO Griselda Kuns Work Phone: [facility] 03-21-2023 00:12-0400 Body height 172.72 cm DO Griselda Kuns Work Phone: [facility] 03-21-2023 00:12-0400 Body temperature 98 [degF] DO Griselda [employer] Work Phone: [facility] 03-21-2023 00:12-0400 Body weight 79.37 kg DO Griselda Kuns Work Phone: [facility] 03-15-2023 10:30-0400 Body height 172.72 cm Griselda Kuns Other [employer] Other 03-15-2023 10:30-0400 Body mass index (BMI) [Ratio] 26.76 kg/m2 Griselda Kuns Other [employer] Other 03-15-2023 10:30-0400 Body weight 79.83 kg Griselda Kuns Other [employer] Other 03-15-2023 10:30-0400 Diastolic blood pressure 86 mm[Hg] Griselda Kuns Other [employer] Other 03-15-2023 10:30-0400 Respiratory rate 16 /min Griselda Kuns Other [employer] Other 03-15-2023 10:30-0400 SaO2% (BldA) [Mass fraction] 97 % Griselda Kuns Other [employer] Other 03-15-2023 10:30-0400 Systolic blood pressure 174 mm[Hg] Griselda Kuns Other [employer] Other 03-08-2023 10:00-0400 Body height 172.72 cm Griselda Kuns Other [employer] Other 03-08-2023 10:00-0400 Body mass index (BMI) [Ratio] 27.18 kg/m2 Griselda Kuns Other [employer] Other 03-08-2023 10:00-0400 Body weight 81.1 kg Griselda Kuns Other [facility] [employer] Other 03-08-2023 10:00-0400 Diastolic blood pressure 82 mm[Hg] Griselda Kuns Other [employer] Other 03-08-2023 10:00-0400 Respiratory rate 16 /min Griselda Kuns Other [employer] Other 03-08-2023 10:00-0400 SaO2% (BldA) [Mass fraction] 96 % Griselda Kuns Other [facility] [employer] Other 03-08-2023 10:00-0400 Systolic blood pressure 118 mm[Hg] Griselda Kuns Other [facility] [employer] Other 02-26-2023 14:13-0400 Body height 172.72 cm DO Grsielda Kuns Work Phone: [facility] 02-26-2023 14:13-0400 Body temperature 98 [degF] DO Griselda Kuns Work Phone: [facility] 02-26-2023 14:13-0400 Body weight 78.6 kg DO Griselda Kuns Work Phone: [facility] 02-26-2023 14:13-0400 Diastolic blood pressure 77 mm[Hg] DO Griselda Kuns Work Phone: [facility] 02-26-2023 14:13-0400 Heart rate 56 /min DO Griselda Kuns Work Phone: [facility] 02-26-2023 14:13-0400 Respiratory rate 18 /min DO Griselda Kuns Work Phone: [facility] 02-26-2023 14:13-0400 SaO2% (BldA) [Mass fraction] 96 % DO Griselda Kuns Work Phone: [facility] 02-26-2023 14:13-0400 Systolic blood pressure 142 mm[Hg] DO Griselda Kuns Work Phone: [facility] 12-05-2022 10:15-0400 Body height 172.72 cm Griselda Kuns Other [employer] Other 12-05-2022 10:15-0400 Body mass index (BMI) [Ratio] 25.85 kg/m2 Griselda Kuns Other [employer] Other 12-05-2022 10:15-0400 Body weight 77.11 kg Griselda Andreas Other [employer] Other 12-05-2022 10:15-0400 Diastolic blood pressure 80 mm[Hg] Griselda Kuns Other [employer] Other 12-05-2022 10:15-0400 Respiratory rate 16 /min Griselda Kuns Other [employer] Other 12-05-2022 10:15-0400 SaO2% (BldA) [Mass fraction] 96 % Griselda Andreas Other [employer] Other 12-05-2022 10:15-0400 Systolic blood pressure 140 mm[Hg] Griselda Kuns Other [employer] Other 09-13-2022 10:57-0400 Body height 170.6 cm Kelton Perez PA-C Work Phone: [facility] 09-13-2022 10:57-0400 Body temperature 97.39 [degF] Kelton Jakubek PA-C Work Phone: [facility] 09-13-2022 10:57-0400 Body weight 77.34 kg Kelton Perez PA-C Work Phone: [facility] 09-13-2022 10:57-0400 Diastolic blood pressure 61 mm[Hg] Kelton Perez PA-C Work Phone: [facility] 09-13-2022 10:57-0400 Heart rate 70 /min Kelton Perez PA-C Work Phone: [facility] 09-13-2022 10:57-0400 Respiratory rate 18 /min Kelton Perez PA-C Work Phone: [facility] 09-13-2022 10:57-0400 SaO2% (BldA) [Mass fraction] 100 % Kelton Perez PA-C Work Phone: [facility] 09-13-2022 10:57-0400 Systolic blood pressure 133 mm[Hg] Kelton Perez PA-C Work Phone: [facility] 08-31-2022 11:15-0400 Body height 172.72 cm Griselda #[employer] Other [employer] Other 08-31-2022 11:15-0400 Body mass index (BMI) [Ratio] 26.79 kg/m2 Griselda #[employer]gideon Other [employer] Other 08-31-2022 11:15-0400 Body weight 79.92 kg Griselda #[employer]gideon Other [employer] Other 08-31-2022 11:15-0400 Diastolic blood pressure 78 mm[Hg] Griselda #waywiregideon Other [employer] Other 08-31-2022 11:15-0400 Respiratory rate 16 /min Griselda iubenda Other [employer] Other 08-31-2022 11:15-0400 SaO2% (BldA) [Mass fraction] 98 % Griselda Kuns Other [employer] Other 08-31-2022 11:15-0400 Systolic blood pressure 138 mm[Hg] Griselda Kuns Other [employer] Other 08-01-2022 10:30-0500 Body height 172.72 cm Griselda Kuns Other [employer] Other 08-01-2022 10:30-0500 Body mass index (BMI) [Ratio] 27.27 kg/m2 Griselda Kuns Other [employer] Other 08-01-2022 10:30-0500 Body weight 81.38 kg Griselda Kuns Other [employer] Other 08-01-2022 10:30-0500 Diastolic blood pressure 82 mm[Hg] Griselda Kuns Other [employer] Other 08-01-2022 10:30-0500 Respiratory rate 16 /min Griselda Kuns Other [employer] Other 08-01-2022 10:30-0500 SaO2% (BldA) [Mass fraction] 99 % Griselda Kuns Other [employer] Other 08-01-2022 10:30-0500 Systolic blood pressure 146 mm[Hg] Griselda Kuns Other [employer] Other 07-17-2022 09:45-0500 Diastolic blood pressure 98 mm[Hg] DO Griselda Kuns Work Phone: [facility] 07-17-2022 09:45-0500 Heart rate 69 /min DO Griselda Kuns Work Phone: [facility] 07-17-2022 09:45-0500 Respiratory rate 16 /min DO Griselda Kuns Work Phone: [facility] 07-17-2022 09:45-0500 SaO2% (BldA) [Mass fraction] 99 % DO Griselda Kuns Work Phone: [facility] 07-17-2022 09:45-0500 Systolic blood pressure 144 mm[Hg] DO Griselda Kuns Work Phone: [facility] 07-17-2022 07:58-0500 Body height 172.72 cm DO Griselda Kuns Work Phone: [facility] 07-17-2022 07:58-0500 Body weight 79.37 kg DO Griselda Kuns Work Phone: [facility] 06-28-2022 10:20-0500 Body height 172.72 cm Trish Blades Other [employer] [facility] [place] Other 06-28-2022 10:20-0500 Body mass index (BMI) [Ratio] 26.67 kg/m2 Trish Blades Other [employer] Other 06-28-2022 10:20-0500 Body weight 79.56 kg Trish Blades Other [employer] Other 06-28-2022 10:20-0500 Diastolic blood pressure 80 mm[Hg] Trish Blades Other [employer] Other 06-28-2022 10:20-0500 Systolic blood pressure 140 mm[Hg] Trish Blades Other [employer] Other 05-26-2022 13:30-0500 Body height 172.72 cm Griselda Kuns Other [employer] Other 05-26-2022 13:30-0500 Body mass index (BMI) [Ratio] 26.7 kg/m2 Griselda Kuns Other [employer] Other 05-26-2022 13:30-0500 Body weight 79.65 kg Rgiselda Kuns Other [employer] Other 05-26-2022 13:30-0500 Diastolic blood pressure 82 mm[Hg] Griselda Kuns Other [employer] Other 05-26-2022 13:30-0500 Respiratory rate 18 /min Griselda Kuns Other [employer] Other 05-26-2022 13:30-0500 SaO2% (BldA) [Mass fraction] 98 % Griselda Kuns Other [employer] Other 05-26-2022 13:30-0500 Systolic blood pressure 144 mm[Hg] Griselda Kuns Other [employer] Other 04-17-2022 00:30-0400 Diastolic blood pressure 64 mm[Hg] DO Griselda Kuns Work Phone: [facility] 04-17-2022 00:30-0400 Heart rate 78 /min DO Griselda Kuns Work Phone: [facility] 04-17-2022 00:30-0400 Respiratory rate 16 /min DO Griselda Kuns Work Phone: [facility] 04-17-2022 00:30-0400 SaO2% (BldA) [Mass fraction] 97 % DO Griselda Kuns Work Phone: [facility] 04-17-2022 00:30-0400 Systolic blood pressure 135 mm[Hg] DO Griselda Kuns Work Phone: [facility] 04-16-2022 19:45-0400 Body height 172.72 cm DO Griselda Kuns Work Phone: [facility] 04-16-2022 19:45-0400 Body temperature 98.1 [degF] DO Griselda Kuns Work Phone: [facility] 04-16-2022 19:45-0400 Body weight 78 kg DO Griselda Kuns Work Phone: [facility] 04-06-2022 16:31-0400 Body height 172.72 cm DO Griselda Kuns Work Phone: [facility] 04-06-2022 16:31-0400 Body temperature 98.1 [degF] DO Griselda Kuns Work Phone: [facility] 04-06-2022 16:31-0400 Body weight 79.37 kg DO Griselda Kuns Work Phone: [facility] 04-06-2022 16:31-0400 Diastolic blood pressure 108 mm[Hg] DO Griselda Kuns Work Phone: [facility] 04-06-2022 16:31-0400 Heart rate 95 /min DO Griselda Kuns Work Phone: [facility] 04-06-2022 16:31-0400 Respiratory rate 19 /min DO Griselda Kuns Work Phone: [facility] 04-06-2022 16:31-0400 SaO2% (BldA) [Mass fraction] 97 % DO Griselda Kuns Work Phone: [facility] 04-06-2022 16:31-0400 Systolic blood pressure 138 mm[Hg] DO Griselda Kuns Work Phone: [facility] 03-16-2022 13:30-0400 Body height 172.72 cm Griselda Kuns Other [employer] Other 03-16-2022 13:30-0400 Body mass index (BMI) [Ratio] 26.91 kg/m2 Griselda Kuns Other [employer] Other 03-16-2022 13:30-0400 Body weight 80.29 kg Griselda Kuns Other [employer] Other 03-16-2022 13:30-0400 Diastolic blood pressure 80 mm[Hg] Griselda Kuns Other [employer] Other 03-16-2022 13:30-0400 Respiratory rate 16 /min Griselda Kuns Other [employer] Other 03-16-2022 13:30-0400 SaO2% (BldA) [Mass fraction] 97 % Griselda Kuns Other [employer] Other 03-16-2022 13:30-0400 Systolic blood pressure 140 mm[Hg] Griselda Kuns Other [employer] Other 01-30-2022 12:00-0400 Body height 172.72 cm Griselda Kuns Other [employer] Other 01-30-2022 12:00-0400 Body mass index (BMI) [Ratio] 26.3 kg/m2 Griselda Kuns Other [employer] Other 01-30-2022 12:00-0400 Body weight 78.47 kg Griselda Kuns Other [employer] Other 01-30-2022 12:00-0400 Diastolic blood pressure 82 mm[Hg] Griselda Kuns Other [employer] Other 01-30-2022 12:00-0400 Respiratory rate 16 /min Griselda Kuns Other [employer] Other 01-30-2022 12:00-0400 SaO2% (BldA) [Mass fraction] 99 % Griselda Kuns Other [employer] Other 01-30-2022 12:00-0400 Systolic blood pressure 146 mm[Hg] Griselda Kuns Other [employer] Other 12-26-2021 11:00-0400 Body height 172.72 cm Griselda Kuns Other [employer] Other 12-26-2021 11:00-0400 Body mass index (BMI) [Ratio] 26.61 kg/m2 Griselda Kuns Other [employer] Other 12-26-2021 11:00-0400 Body weight 79.38 kg Griselda Kuns Other [employer] Other 12-26-2021 11:00-0400 Diastolic blood pressure 80 mm[Hg] Griselda Kuns Other [employer] Other 12-26-2021 11:00-0400 Respiratory rate 16 /min Griselda Kuns Other [employer] Other 12-26-2021 11:00-0400 SaO2% (BldA) [Mass fraction] 96 % Griselda Kuns Other [employer] Other 12-26-2021 11:00-0400 Systolic blood pressure 166 mm[Hg] Griselda Kuns Other [employer] Other 12-05-2021 10:15-0400 Body height 172.72 cm Griselda Kuns Other [employer] Other 12-05-2021 10:15-0400 Body mass index (BMI) [Ratio] 269.71 kg/m2 Griselda Kuns Other [employer] Other 12-05-2021 10:15-0400 Body weight 804.69 kg Griselda Kuns Other [employer] Other 12-05-2021 10:15-0400 Diastolic blood pressure 72 mm[Hg] Griselda Kuns Other [employer] Other 12-05-2021 10:15-0400 Respiratory rate 18 /min Griselda Kuns Other [employer] Other 12-05-2021 10:15-0400 SaO2% (BldA) [Mass fraction] 99 % Griselda Kuns Other [employer] Other 12-05-2021 10:15-0400 Systolic blood pressure 130 mm[Hg] Griselda Kuns Other [employer] Other 11-08-2021 11:15-0400 Body height 172.72 cm Griselda Kuns Other [employer] Other 11-08-2021 11:15-0400 Body mass index (BMI) [Ratio] 27.06 kg/m2 Griseldakeith Mendezs Other [employer] Other 11-08-2021 11:15-0400 Body weight 80.74 kg Griseldakeith Krause Other [employer] Other 11-08-2021 11:15-0400 Diastolic blood pressure 80 mm[Hg] Griseldakeith Mendezs Other [employer] Other 11-08-2021 11:15-0400 Respiratory rate 16 /min Griseldakeith Krause Other [employer] Other 11-08-2021 11:15-0400 SaO2% (BldA) [Mass fraction] 97 % Griseldakeith Krause Other [employer] [facility] [place] Other 11-08-2021 11:15-0400 Systolic blood pressure 128 mm[Hg] Griseldakeith Mendezs Other [facility] [place] Other 11-03-2021 09:38-0400 Body height 170.51 cm Griselda R Andreas Work Phone: [facility] Work Phone: 11-03-2021 09:38-0400 Body mass index (BMI) [Ratio] 27.05 kg/m2 Griselda R Andreas Work Phone: [facility] Work Phone: 11-03-2021 09:38-0400 Body surface area Derived from formula 1.91 m2 Griselda R Kuns Work Phone: [facility] Work Phone: 11-03-2021 09:38-0400 Body temperature 98.2 [degF] Griselda Neisha Krause Work Phone: [facility] Work Phone: 11-03-2021 09:38-0400 Body weight 78.65 kg Griseldakeith Krause Work Phone: [facility] Work Phone: 11-03-2021 09:38-0400 Diastolic blood pressure 67 mm[Hg] Griselda Neisha Krause Work Phone: [facility] Work Phone: 11-03-2021 09:38-0400 Heart rate 63 /min Griselda Neisha Krause Work Phone: [facility] Work Phone: 11-03-2021 09:38-0400 Respiratory rate 16 /min Griselda Neisha Krause Work Phone: [facility] Work Phone: 11-03-2021 09:38-0400 SaO2% (BldA) [Mass fraction] 99 % Griselda Neisha Krause Work Phone: [facility] Work Phone: 11-03-2021 09:38-0400 Systolic blood pressure 147 mm[Hg] Griselda Driver Nelida Work Phone: [facility] Work Phone: 11-03-2021 09:38-0400 7 1 Griselda Neisha Krause Work Phone: [facility] Work Phone: Comment on above: [employer] 11-01-2021 13:30-0400 Body height 172.72 cm Griselda Krause Other [employer] Other 11-01-2021 13:30-0400 Body mass index (BMI) [Ratio] 26.61 kg/m2 Griseldakeith Mednezs Other [employer] Other 11-01-2021 13:30-0400 Body weight 79.38 kg Griselda Kuns Other [employer] Other 11-01-2021 13:30-0400 Diastolic blood pressure 78 mm[Hg] Griselda Kuns Other [employer] Other 11-01-2021 13:30-0400 Respiratory rate 18 /min Griselda Andreas Other [employer] Other 11-01-2021 13:30-0400 SaO2% (BldA) [Mass fraction] 99 % Griselda Andreas Other [employer] Other 11-01-2021 13:30-0400 Systolic blood pressure 140 mm[Hg] Griselda Kuns Other [employer] Other 10-24-2021 09:45-0400 Body height 172.72 cm Sheng Schneider Other [employer] Other 10-24-2021 09:45-0400 Body mass index (BMI) [Ratio] 26.76 kg/m2 Sheng Schneider Other [employer] Other 10-24-2021 09:45-0400 Body weight 79.83 kg Sheng Schneider Other [employer] Other 10-13-2021 09:50-0400 Body height 172 cm Memo Cole MD Work Phone: [facility] 10-13-2021 09:50-0400 Body temperature 97.5 [degF] Memo Cole MD Work Phone: [facility] 10-13-2021 09:50-0400 Body weight 81.28 kg Memo Cole MD Work Phone: [facility] 10-13-2021 09:50-0400 Diastolic blood pressure 77 mm[Hg] Memo Cole MD Work Phone: [facility] 10-13-2021 09:50-0400 Heart rate 70 /min Memo Cole MD Work Phone: [facility] 10-13-2021 09:50-0400 Respiratory rate 16 /min Memo Cole MD Work Phone: [facility] 10-13-2021 09:50-0400 SaO2% (BldA) [Mass fraction] 99 % Memo Cole MD Work Phone: [facility] 10-13-2021 09:50-0400 Systolic blood pressure 152 mm[Hg] Memo Cole MD Work Phone: [facility] 09-19-2021 10:45-0400 Body height 172.72 cm Griselda Krause Other [employer] Other 09-19-2021 10:45-0400 Body mass index (BMI) [Ratio] 26.15 kg/m2 Griselda Krause Other [employer] Other 09-19-2021 10:45-0400 Body weight 78.02 kg Griselda Krause Other [employer] Other 09-19-2021 10:45-0400 Diastolic blood pressure 80 mm[Hg] Griselda Krause Other [employer] Other 09-19-2021 10:45-0400 Respiratory rate 18 /min Griselda Krause Other [employer] Other 09-19-2021 10:45-0400 SaO2% (BldA) [Mass fraction] 99 % Griselda Kuns Other [employer] Other 09-19-2021 10:45-0400 Systolic blood pressure 140 mm[Hg] Griselda Kuns Other [employer] Other 06-30-2021 13:30-0500 Body height 172.72 cm Griselda Kuns Other [employer] Other 04-14-2021 08:45-0400 Body height 172.72 cm Griselda Kuns Other [employer] Other 04-14-2021 08:45-0400 Body mass index (BMI) [Ratio] 25.85 kg/m2 Griselda Kuns Other [employer] Other 04-14-2021 08:45-0400 Body weight 77.11 kg Griselda Kuns Other [employer] Other 04-14-2021 08:45-0400 Diastolic blood pressure 80 mm[Hg] Griselda Kuns Other [employer] Other 04-14-2021 08:45-0400 Respiratory rate 16 /min Griselda Kuns Other [employer] Other 04-14-2021 08:45-0400 SaO2% (BldA) [Mass fraction] 99 % Griselda Kuns Other [employer] Other 04-14-2021 08:45-0400 Systolic blood pressure 124 mm[Hg] Griseldakeith Mendezs Other [facility] [place] Other Encounters Encounter Date Encounter Type Care Provider Facility Start: 09-10-2023 End: 09-10-2023 ambulatory JEREMY Driver ANTONIOROSITAGideon Not Available Start: 09-05-2023 End: 09-05-2023 Patient encounter procedure DO Griselda Kuns Work Phone: [facility] Cardiology Work Phone: Start: 09-05-2023 End: 09-05-2023 ambulatory Griselda Kuns Facility:[facility] Start: 09-05-2023 End: 09-05-2023 ambulatory DO Griselda Kuns Work Phone: [facility] Work Phone: Start: 09-05-2023 End: 09-05-2023 Patient encounter procedure DO Griselda Kuns Work Phone: [facility] Vascular Surgery Work Phone: Start: 09-03-2023 End: 09-04-2023 ambulatory Sarina Ramsey MD Facility: [facility] Start: 08-30-2023 End: 08-30-2023 ambulatory NIKOLE THOMASON Not Available Start: 08-15-2023 End: 08-15-2023 Patient encounter procedure DO Griselda Kuns Work Phone: [facility] [place] Work Phone: Start: 08-14-2023 End: 08-14-2023 ambulatory NIKOLE THOMASON Not Available Start: 08-06-2023 End: 08-07-2023 ambulatory Sarina Ramsey MD Facility: [facility] Start: 08-02-2023 End: 08-02-2023 ambulatory DO Griselda Kuns Work Phone: [facility] Work Phone: Start: 08-02-2023 End: 08-02-2023 Patient encounter procedure DO Griselda Kuns Work Phone: [facility] [place] Work Phone: Start: 07-26-2023 End: 07-26-2023 ambulatory NIKOLE GODFREYKyle Not Available Start: 07-26-2023 Chart abstracting Nikole Harpreet Santizodeni DIRECT CHILL CASTING OPERATOR Work Phone: [facility] [address] Start: 07-19-2023 End: 07-19-2023 ambulatory NIKOLE Harpreet THOMASON Not Available Start: 07-19-2023 Bamboo flowsheet Nikole Harpreet Svetlana DIRECT CHILL CASTING OPERATOR Work Phone: [facility] Start: 07-19-2023 Bamboo flowsheet Nikole Harpreet Santizodeni DIRECT CHILL CASTING OPERATOR Work Phone: [facility] Start: 07-18-2023 End: 07-21-2023 ambulatory ADDIS JUAREZ [facility] Start: 07-03-2023 End: 07-03-2023 ambulatory NIKOLE Harpreet THOMASON Not Available Start: 07-02-2023 End: 07-02-2023 ambulatory Griselda Kuns Other [employer] Other Start: 07-02-2023 Office outpatient vi sit 25 minutes Griselda Kuns [facility] [place] Start: 07-02-2023 End: 07-02-2023 Patient encounter procedure DO Griselda Kuns Work Phone: [facility] [place] Work Phone: Start: 06-07-2023 End: 06-07-2023 ambulatory NIKOLE Harpreet SANTIZORIOSKyle Not Available Start: 05-31-2023 End: 05-31-2023 ambulatory Griselda Kuns Other [employer] Other Start: 05-31-2023 Office outpatient vi sit 25 minutes Griselda Kuns [facility] [place] Start: 05-30-2023 Office outpatient vi sit 15 minutes Ruddy Harvey [facility] Start: 05-30-2023 End: 05-30-2023 ambulatory DO Griselda Kuns Work Phone: [facility] [place] Other Start: 05-30-2023 End: 05-31-2023 Patient encounter procedure DO Griselda Kuns Work Phone: [facility]-Ultrasound [facility] Vascular Start: 05-30-2023 End: 05-30-2023 Patient encounter procedure DO Griselda Kuns Work Phone: [facility] Work Phone: Start: 05-15-2023 End: 05-15-2023 ambulatory Lilliam Cason Other [facility] [place] Other Start: 05-15-2023 Office outpatient vi sit 25 minutes Lilliam Cason [facility] Cardiology Start: 05-15-2023 Telephone encounter Lilliam Cason [employer] Start: 05-15-2023 End: 05-15-2023 Patient encounter procedure DO Griselda Kuns Work Phone: [facility] Cardiology Work Phone: Start: 05-14-2023 End: 05-15-2023 ambulatory Sarina Ramsey MD Facility:[facility] Start: 05-07-2023 End: 05-07-2023 ambulatory Griselda Kuns Facility:[facility] Start: 05-07-2023 End: 05-07-2023 Admission to same day surgery center DO Griselda Kuns Work Phone: [facility]-Interventional Radiology Work Phone: Start: 05-07-2023 End: 05-07-2023 ambulatory DO Griselda Kuns Work Phone: [facility] Work Phone: Start: 05-04-2023 End: 05-04-2023 ambulatory Griselda Kuns Facility:[facility] Start: 05-04-2023 End: 05-04-2023 ambulatory DO Griselda Kuns Work Phone: [facility] Work Phone: Start: 05-04-2023 End: 05-04-2023 Patient encounter procedure DO Griselda Kuns Work Phone: [facility]CT Scan [facility] [place] Work Phone: Start: 05-03-2023 End: 05-03-2023 ambulatory Ruddy Harvey Other [employer] Other Start: 05-03-2023 Office outpatient ne w 45 minutes Ruddy Harvey [facility] Start: 05-03-2023 Telephone encounter Ruddy craft [facility] [employer] Start: 05-01-2023 End: 05-01-2023 ambulatory Griselda Kuns Other [employer] Other Start: 05-01-2023 Office outpatient vi sit 25 minutes Griselda Kuns [facility] [place] Start: 04-25-2023 End: 04-25-2023 ambulatory Griselda Kuns Facility:[facility] Start: 04-25-2023 End: 04-25-2023 ambulatory DO Griselda Kuns Work Phone: [facility] Work Phone: Start: 04-25-2023 End: 04-25-2023 Patient encounter procedure DO Griselda Kuns Work Phone: [facility]Ultrasound [facility] [place] Work Phone: Start: 04-16-2023 End: 04-17-2023 ambulatory Sarina Ramsey MD Facility:[facility] Start: 04-12-2023 End: 04-12-2023 ambulatory Lilliam Cason Other [employer] Other Start: 04-12-2023 Telephone encounter Lilliam Kamla [facility] Start: 04-11-2023 End: 04-11-2023 ambulatory Lilliam Grecooroge Other [employer] Other Start: 04-11-2023 Office outpatient ne w 45 minutes Lilliam Kamla [facility] Start: 04-10-2023 End: 04-10-2023 ambulatory Griselda Kuns Other [employer] Other Start: 04-10-2023 Telephone encounter Griselda Kuns [facility] [place] Start: 03-30-2023 End: 03-30-2023 ambulatory Griselda Kuns Facility:[facility] Start: 03-30-2023 End: 03-30-2023 ambulatory DO Griselda Kuns Work Phone: [facility] Work Phone: Start: 03-30-2023 End: 03-30-2023 Patient encounter procedure DO Griselda Kuns Work Phone: [facility] [place] Work Phone: Start: 03-21-2023 End: 03-21-2023 Emergency department patient visit Rohit Mullins Jaxsonelli Facility:[facility] Start: 03-21-2023 End: 03-21-2023 Emergency department patient visit DO Griselda Kuns Work Phone: [facility]Emergency Room Work Phone: Start: 03-15-2023 End: 03-15-2023 ambulatory Griselda Kuns Other [employer] Other Start: 03-15-2023 Office outpatient vi sit 25 minutes Griselda Kuns [facility] [place] Start: 03-08-2023 End: 03-08-2023 ambulatory Griselda Kuns Other [employer] Other Start: 03-08-2023 Office outpatient vi sit 25 minutes Griselda Kuns [facility] Start: 02-26-2023 End: 02-26-2023 Emergency department patient visit Daniel Gaytan Facility:[facility] Start: 02-26-2023 End: 02-26-2023 Emergency department patient visit DO Griselda Kuns Work Phone: [facility]Emergency Room Work Phone: Start: 12-28-[address] BRET HDEZ [facility] ity:UNKNOWN Start: 12-05-2022 End: 12-05-2022 ambulatory Griselda Kuns Other [employer] Other Start: 12-05-2022 Office outpatient vi sit 25 minutes Griselda Kuns [facility] Start: 11-15-2022 End: 11-15-2022 ambulatory Lima Joseph Facility:[facility] Start: 11-15-2022 End: 11-15-2022 ambulatory DO Griselda Kuns Work Phone: [facility] Work Phone: Start: 11-15-2022 End: 11-15-2022 Patient encounter procedure DO Griselda Kuns Work Phone: [facility]MRI [address] Work Phone: Start: 10-27-2022 End: 10-27-2022 ambulatory GRISELDA KRAUSE Facility:[facility] Start: 10-24-2022 End: 10-24-2022 ambulatory Griselda Kuns Facility:[facility] Start: 10-24-2022 End: 10-24-2022 ambulatory DO Griselda Kuns Work Phone: [facility] Work Phone: Start: 10-24-2022 End: 10-24-2022 Patient encounter procedure DO Griselda Kuns Work Phone: [facility] [place] Work Phone: Start: 10-17-2022 End: 10-17-2022 ambulatory ARSENIO JACKSON Facility:[facility] Start: 09-28-2022 End: 09-28-2022 ambulatory DEMOND CAT Facility:[facility] Start: 09-22-2022 End: 09-22-2022 ambulatory KELTON PEREZ Facility:[facility] Start: 09-22-2022 End: 09-22-2022 Subsequent hospital visit by physician Jonelle Hernandez (I-Stat/3t) Work Phone: Radiology Comment on above: 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] Start: 09-18-2022 Telephone encounter Kelton ghosh PA-C Work Phone: [facility] Comment on above: Patient Question Start: 09-13-2022 End: 09-13-2022 ambulatory ELVI CADENA Facility:[facility] Start: 09-13-2022 End: 09-13-2022 Patient encounter procedure Kelton Perez PA-C Work Phone: [facility] Comment on above: NPH (normal pressure hydrocephalus) (HCC) (Primary Dx) Start: 08-31-2022 End: 08-31-2022 ambulatory Griselda Kuns Other [employer] Other Start: 08-31-2022 Office outpatient vi sit 25 minutes Griselda Kuns [facility] Start: 08-01-2022 End: 08-01-2022 ambulatory Griselda Kuns Other [employer] Other Start: 08-01-2022 Office outpatient vi sit 25 minutes Griselda Kuns [facility] Start: 07-17-2022 End: 07-17-2022 ambulatory DO Griselda Kuns Work Phone: [facility] Work Phone: Start: 07-17-2022 End: 07-17-2022 Patient encounter procedure DO Griselda Kuns Work Phone: [facility]XRay [facility] [place] Work Phone: Start: 07-14-2022 End: 07-14-2022 Patient encounter procedure DO Griselda Kuns Work Phone: [facility]-CT Scan [facility] [place] Work Phone: Start: 06-28-2022 End: 06-28-2022 ambulatory Trish Blades Other [employer] Other Start: 06-28-2022 Office outpatient ne w 45 minutes Trish Blades [facility] Neurosurgery Start: 05-26-2022 End: 05-26-2022 ambulatory Griselda Kuns Other [employer] Other Start: 05-26-2022 Office outpatient vi sit 25 minutes Griselda Kuns [facility] Start: 05-17-2022 End: 05-17-2022 ambulatory DO Griselda Kuns Work Phone: [facility] Work Phone: Start: 05-17-2022 End: 05-17-2022 Discharged Recurring DO Griselda Kuns Work Phone: [facility]-Physical Therapy [address] Start: 04-27-2022 Registered Recurring DO Griselda Kuns Work Phone: [facility]-Physical Therapy [address] Start: 04-16-2022 End: 04-17-2022 Emergency department patient visit DO Griselda Kuns Work Phone: [facility]-Emergency Room Start: 04-10-2022 End: 04-10-2022 ambulatory Griselda Kuns Other [employer] Other Start: 04-10-2022 Telephone encounter Griselda Kuns [facility] Start: 04-06-2022 End: 04-06-2022 Emergency department patient visit DO Griselda Kuns Work Phone: [facility]-Emergency Room Start: 03-27-2022 Telephone encounter Asya Greene RN Hematology/Oncology Comment on above: Appointment Start: 03-22-2022 End: 03-22-2022 ambulatory Griselda Kuns Other [employer] Other Start: 03-22-2022 Telephone encounter Griselda Kuns [facility] Start: 03-16-2022 End: 03-16-2022 ambulatory Griselda Kuns Other [employer] Other Start: 03-16-2022 Office outpatient vi sit 25 minutes Griselda Kuns [facility] Start: 03-16-2022 Telephone encounter Self [facility] Comment on above: Triage (Internal Ref erral--old) Start: 03-09-2022 End: 03-09-2022 ambulatory Griselda Kuns Other [facility] Other Start: 03-09-2022 Telephone encounter Griselda Kuns [facility] Start: 03-07-2022 End: 03-07-2022 ambulatory Griselda Kuns Other [facility] Other Start: 03-07-2022 Telephone encounter Griselda Kuns [facility] Start: 03-03-2022 Telephone encounter Griselda Kuns [facility] Start: 03-03-2022 End: 03-03-2022 ambulatory DO Griselda Kuns Work Phone: [facility] Other Start: 03-03-2022 End: 03-03-2022 Discharged Recurring DO Griselda Kuns Work Phone: [facility] [address] Start: 03-03-2022 Registered Recurring DO Griselda Kuns Work Phone: [facility] [address] Start: 02-07-2022 End: 02-07-2022 ambulatory Griselda Kuns Other [facility] Other Start: 02-07-2022 Telephone encounter Griselda Kuns [facility] Start: 01-30-2022 End: 01-30-2022 ambulatory Griselda Kuns Other [facility] Other Start: 01-30-2022 Office outpatient vi sit 25 minutes Griselda Kuns [facility] Start: 01-12-2022 End: 01-12-2022 ambulatory Griselda Kuns Other [facility] Other Start: 01-12-2022 Telephone encounter Griselda Kuns [facility] [place] Start: 12-26-2021 End: 12-26-2021 ambulatory Griselda Kuns Other [facility] Other Start: 12-26-2021 Office outpatient vi sit 25 minutes Griselda Kuns [facility] [place] Start: 12-23-2021 End: 12-23-2021 ambulatory Griselda Kuns Other [facility] Other Start: 12-23-2021 Telephone encounter Griselda Kuns [facility] Start: 12-05-2021 End: 12-05-2021 ambulatory Griselda Kuns Other [facility] Other Start: 12-05-2021 Office outpatient vi sit 25 minutes Griselda Kuns [facility] [place] Start: 12-05-2021 Telephone encounter Griselda Kuns [facility] Start: 11-22-2021 End: 11-22-2021 ambulatory Griselda Kuns Other [facility] Other Start: 11-22-2021 Telephone encounter Griselda Kuns [facility] Start: 11-21-2021 Office outpatient vi sit 15 minutes Griselda R Kuns Work Phone: [facility] Work Phone: Start: 11-09-2021 End: 11-09-2021 ambulatory Griselda Kuns Other [facility] Other Start: 11-09-2021 Telephone encounter Griselda Kuns [facility] Start: 11-08-2021 End: 11-08-2021 ambulatory Griselda Kuns Other [facility] [place] Other Start: 11-08-2021 Office outpatient vi sit 25 minutes Griselda Kuns [facility] Start: 11-03-2021 Office consultation new/estab patient 60 min Griselda R Kuns Work Phone: [facility] Work Phone: Start: 11-01-2021 End: 11-01-2021 ambulatory Griselda Kuns Other [facility] Other Start: 11-01-2021 Office outpatient vi sit 25 minutes Griselda Kuns [facility] Start: 10-31-2021 End: 10-31-2021 ambulatory Sheng Schneider Other [facility] [place] Other Start: 10-31-2021 Telephone encounter Sheng Schneider [facility] Start: 10-27-2021 End: 10-27-2021 ambulatory Memo Cole MD Work Phone: Hematology/Oncology Comment on above: 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); Lung nodules; Malignant neoplasm of head, face and neck (HCC) Start: 10-27-2021 End: 10-27-2021 Telemedicine consultation with patient Memo Cole MD Work Phone: [facility] Start: 10-24-2021 End: 10-24-2021 ambulatory Sheng Schneider Other [facility] Other Start: 10-24-2021 Office outpatient ne w 30 minutes Sheng Schneider [facility] Neurosurgery Start: 10-13-2021 Telephone encounter Memo kapoor MD Work Phone: Cancer [facility] Comment on above: Referral Information (Neurosurgery) Start: 10-13-2021 End: 10-13-2021 ambulatory Memo Cole MD Work Phone: Hematology/Oncology Comment on above: Glioma of brain (HCC ) (Primary Dx); Lung nodules; 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) Start: 10-13-2021 End: 10-13-2021 Patient encounter procedure Memo Cole MD Work Phone: [facility] Start: 10-06-2021 End: 10-06-2021 ambulatory Griselda Kuns Other [facility] Other Start: 10-06-2021 Telephone encounter Asya Kumar RN Hematology/Oncology Comment on above: Results Start: 09-29-2021 End: 09-29-2021 ambulatory Griselda Kuns Other [facility] Other Start: 09-29-2021 Telephone encounter Griselda Kuns [facility] Start: 09-27-2021 End: 09-27-2021 ambulatory Griselda Kuns Other [facility] Other Start: 09-27-2021 Telephone encounter Griselda Kuns [facility] Start: 09-19-2021 End: 09-19-2021 ambulatory Griselda Kuns Other [facility] Other Start: 09-19-2021 Office outpatient vi sit 25 minutes Griselda Kuns [facility] [place] Start: 09-12-2021 End: 09-12-2021 ambulatory Griselda Kuns Other [facility] Other Start: 09-12-2021 Telephone encounter Griselda Kuns [facility] Start: 09-08-2021 End: 09-08-2021 ambulatory Griselda Kuns Other [facility] Other Start: 09-08-2021 Telephone encounter Griselda Kuns [facility] Start: 06-30-2021 End: 06-30-2021 ambulatory Griselda Kuns Other [facility] Other Start: 06-30-2021 Office outpatient vi sit 15 minutes Griselda Kuns [facility] Start: 06-30-2021 Telephone encounter Griselda Kuns [facility] Start: 06-29-2021 End: 06-29-2021 ambulatory Griselda Kuns Other [facility] Other Start: 06-29-2021 Nursing evaluation o f patient and report Griselda Kuns [facility] Start: 04-19-2021 End: 04-19-2021 ambulatory Griselda Kuns Other [facility] Other Start: 04-19-2021 Nursing evaluation o f patient and report Griselda Kuns [facility] Start: 04-19-2021 Telephone encounter Griselda Kuns [facility] Start: 04-14-2021 Office outpatient vi sit 15 minutes Griselda Kuns [facility] Start: 10-01-2020 End: 10-01-2020 Patient encounter procedure Griselda Kuns Work Phone: -Electrodiagnostics Start: 09-20-2020 End: 09-20-2020 Patient encounter procedure Griselda Kuns -[facility] [place] Start: 09-13-2020 End: 09-13-2020 Patient encounter procedure Griselda Kuns -XRay [facility] Procedures Date Procedure Procedure Detail Performing Clinician Start: 09-05-2023 Ankle brachial pressure index DO Griselda cavanaugh Work Phone: Start: 05-07-2023 Lower limb angiography DO Griselda Krause Work Phone: Start: 05-04-2023 CT angiography of head DO Griselda Krause Work Phone: Start: 05-04-2023 CT angiography of neck vessels DO Griselda Krause Work Phone: Start: 04-25-2023 Pulse volume recorder pneumoplethysmography DO Griselda Krause Work Phone: Start: 02-26-2023 SARS Antigen (LFIA) DO Griselda Krause Work Phone: Start: 11-15-2022 MR lumbar spine [...] Kumar RN Start: 09-13-2020 Plain chest X-ray Griseldakeith Krause Excision of melanoma Griselda Krause Work Phone: Plan of Treatment Date Care Activity Detail Author Start: 10-06-2024 DIABETES SCREEN DIABETES SCREEN [facility] Start: 03-03-2024 Influenza vaccination Influenza Vaccine (#1) [facility] Comment on above: Postponed from 02/16/2023 (Patient Refus ed) Start: 09-05-2023 Ankle brachial pressure index [facility] Start: 08-30-2023 End: 08-30-2023 Patient encounter procedure 08/30/2023 9:40 AM EDT Office Visit [facility] [address] [place] [id number] Nikole Thomason, DIRECT CHILL CASTING OPERATOR [address] [place] [address], [place] [address] [facility] Start: 07-26-2023 End: 07-26-2023 Patient encounter procedure 07/26/2023 1:30 PM EST Procedure Visit [facility] [address] [place] [address], [place] [address] Nikole Thomason, DIRECT CHILL CASTING OPERATOR [address] [place] [address], [place] [address] [facility] [address] Start: 07-19-2023 End: 07-19-2023 Clinical Support 07/19/2023 1:30 PM EST Clinical [facility] [address] [place] [address] Nikole Thomason, DIRECT CHILL CASTING OPERATOR [address] [place] [address], [place] [address] Cervical dystonia [facility] Comment on above: Cervical dystonia Start: 05-07-2023 Pulse volume recorder pneumoplethysmography US arterial pvr rest [facility] Start: 05-07-2023 [facility] Start: 05-07-2023 [facility] Start: 04-25-2023 Pulse volume recorder pneumoplethysmography US arterial pvr rest [facility] Start: 02-16-2023 Influenza vaccination INFLUENZA (Season Ended) [facility] Start: 10-30-2022 End: 10-30-2022 CBC W Auto Differential panel - Blood CBC + DIFF Lab Routine 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) Lung nodules Malignant neoplasm of head, face and neck (HCC) Expected: 10/30/2022 (Approximate), Expires: 10/30/2022 [facility] Work Phone: Comment on above: Expected: 10/30/2022 (Approximate), Expi res: 10/30/2022 Start: 10-30-2022 End: 10-30-2022 Comprehensive metabolic 2000 panel - Serum or Plasma COMP METABOLIC PANEL Lab Routine 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) Lung nodules Malignant neoplasm of head, face and neck (HCC) Expected: 10/30/2022 (Approximate), Expires: 10/30/2022 [facility] Work Phone: Comment on above: Expected: 10/30/2022 (Approximate), Expi res: 10/30/2022 Start: 10-30-2022 End: 11-29-2022 Ct soft tissue neck w/contrast material CT NECK SOFT TISSUE W IVCON Radiology Routine Malignant neoplasm of head, face and neck (HCC) Expected: 10/30/2022 (Approximate), Expires: 11/29/2022 [facility] Work Phone: Comment on above: Expected: 10/30/2022 (Approximate), Expi res: 11/29/2022 Start: 10-30-2022 End: 11-29-2022 Ct thorax w/contrast material CT CHEST W IVCON Radiology Routine Lung nodules Expected: 10/30/2022 (Approximate), Expires: 11/29/2022 [facility] Work Phone: Comment on above: Expected: 10/30/2022 (Approximate), Expi res: 11/29/2022 Start: 10-13-2022 Adult depression screening assessment DEPRESSION SCREENING [facility] Start: 07-17-2022 Aerobic Culture Aerobic Culture [facility] Start: 07-17-2022 Anaerobic Culture Anaerobic Culture [facility] Start: 07-17-2022 Microscopic observation [Identifier] in Unspecified specimen by Gram stain [facility] Start: 07-17-2022 Cerebrospinal fluid culture [facility] Start: 07-17-2022 End: 07-17-2022 [facility] Start: 07-17-2022 [facility] Start: 06-18-2022 DEPRESSION ASSESSMENT DEPRESSION ASSESSMENT [facility] Start: 04-16-2022 Plain chest X-ray XR ribs LT min 3V w CXR1V* [facility] Start: 04-16-2022 XR Unspecified body region Views [facility] Start: 02-16-2022 Influenza vaccination [facility] Start: 10-14-2021 Adult depression screening assessment DEPRESSION SCREENING [facility] Start: 06-23-2021 COVID-19 VACCINE (3 - Booster for Pfizer series) COVID-19 VACCINE (3 - Booster for Pfizer series) [facility] Start: 06-18-2021 DEPRESSION ASSESSMENT DEPRESSION ASSESSMENT [facility] Start: 03-18-2021 COVID-19 VACCINE (3 - Booster for Pfizer series) COVID-19 VACCINE (3 - Booster for Pfizer series) [facility] Start: 2017 PROSTATE CANCER SCREENING DISCUSSION PROSTATE CANCER SCREENING DISCUSSION [facility] Start: 2012 SHINGRIX VACCINE (1 of 2) SHINGRIX VACCINE (1 of 2) [facility] Start: 11-25-2007 COLOGUARD (FIT-DNA) COLOGUARD (FIT-DNA) [facility] Start: 11-25-2007 Colonoscopy COLONOSCOPY [facility] Start: 11-25-2007 COLORECTAL CANCER SCREENING COLORECTAL CANCER SCREENING [facility] Start: 11-25-[address] COLONOGRAPHY [facility] Start: 11-25-2007 FECAL OCCULT BLOOD FECAL OCCULT BLOOD [facility] Start: 11-25-2007 SIGMOIDOSCOPY SIGMOIDOSCOPY [facility] Start: 1997 LIPID SCREEN LIPID SCREEN [facility] Start: 1981 Urine microalbumin profile DTAP,TDAP,TD (1 - Tdap) [facility] Start: 1980 HEPATITIS C SCREENING HEPATITIS C SCREENING [facility] Start: 1980 HIV SCREENING HIV SCREENING [facility] Start: 1962 Screening for malignant neoplasm of colon [facility] Ankle brachial pressure index [facility] Bacteria identified in Cerebral spinal fluid by Culture CSF CULT + STAIN Microbiology Routine NPH (normal pressure hydrocephalus) (HCC) Ordered: 09/13/2022 [facility] Work Phone: Comment on above: Ordered: 09/13/2022 Bacteria identified in Unspecified specimen by Aerobe culture [facility] Bacteria identified in Unspecified specimen by Anaerobe culture [facility] Cell count panel - C erebral spinal fluid CSF CELL COUNT Lab Routine NPH (normal pressure hydrocephalus) ([facility]) Ordered: 09/13/2022 [facility] Work Phone: Comment on above: Ordered: 09/13/2022 Cell count, cerebros roberto fluid [facility] Enolase.neuron speci fic [Mass/volume] in Serum or Plasma by Immunoassay [facility] Fungus identified in Unspecified specimen by Culture [facility] Glucose [Mass/volume ] in Cerebral spinal fluid [facility] IR LP FOR DRAINAGE (PRESSURE) IR LP FOR DRAINAGE (PRESSURE) Radiology Routine NPH (normal pressure hydrocephalus) ([facility]) Ordered: 09/13/2022 [facility] Work Phone: Comment on above: Ordered: 09/13/2022 Meningitis+Encephali tis pathogens DNA and RNA panel - Cerebral spinal fluid by JER with non-probe detection [facility] End: 10-20-2023 Mri brain brain stem w/o w/contrast material MRI BRAIN WO/W IVCON Radiology Routine 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[facility]) 1 Occurrences starting 09/20/2022 until 10/20/2023 [facility] Work Phone: Comment on above: 1 Occurrences starting 09/20/2022 until 10/20/2023 Patient Education [facility] Work Phone: Patient referral [facility] Work Phone: Protein [Mass/volume ] in Cerebral spinal fluid [facility] Virus identified in Unspecified specimen by Culture [facility] Immunizations Immunization Date Immunization Notes Care Provider Carla marie 01-21-2021 COVID-19 Vaccine Pfi zer - Documentation Purposes Only Griselda Krause Other [facility] 12-30-2020 COVID-19 Vaccine Pfi zer - Documentation Purposes Only Griselda Krause Other [facility] 01-24-2016 KENALOG - 10 mg Griselda Krause Other [facility] Other 01-27-2015 Toradol per 15 mg Griselda Krause Other [facility] Other 03-15-2014 tetanus toxoid, redu julienne diphtheria toxoid, and acellular pertussis vaccine, adsorbed Griselda Krause Other [facility] Other Payers Date Payer Category Payer Self-pay [id number] 2022 Private Health Insurance [id number] 2022 Unknown 2021 Private Health Insurance [facility] [employer] [id number] 2021-Present [phone] [address] [place] [address] PPO [id number]. [id number] 2021 Private Health Insurance [id number] .[id number]. [id number] 2019 Medicaid [employer] [id number] 2019-Present [phone] [address] [place] [address] Medicaid [id number]. [id number] 2019 Medicaid [id number]. 1.13.159.2. [id number] 2019 Unknown [id number] 2019 Unknown [id number] 2.16.840.1.537711.19 1962 Unknown [id number] 2.16.840.1.192584.3.579.2. 693 1962 Unknown [id number] 2.16.840.1.552274.3.579.2. 356 1962 Unknown [id number] 2.16.840.1.658906.3.579.2. 182 1962 Unknown [id number] 2.16.840.1.052188.3.579.2. 182 1962 Unknown [id number] 2.16.840.1.749971.3.579.2. 196 1962 Unknown [id number] 2.16.840.1.425910.3.579.2. 196 1962 Unknown [id number] 2.16.840.1.095131.3.579.2. 196 1962 Unknown [id number] 2.16.840.1.727876.3.579.2. 196 1962 Unknown [id number] 2.16.840.1.059242.3.579.2. 1259 1962 Unknown [id number] 2.16.840.1.389048.3.579.2. 1259 1962 Unknown [id number] 2.16.840.1.442970.3.579.2. 1259 1962 Unknown [id number] 2.16.840.1.439242.3.579.2. 1259 1962 Unknown [id number] 2.16.840.1.271966.3.579.2. 1259 1962 Unknown [id number] 2.16.840.1.959522.3.579.2. 1259 1962 Unknown [id number] 2.16.840.1.457077.3.579.2. 1259 1962 Unknown [id number] 2.16.840.1.196464.3.579.2. 1259 Private Health Insurance [id number] Unknown [id number] Unknown [id number] 2.16.840.1.068349.3.579.2. 531 Unknown [id number] 2.16.840.1.605126.3.579.2. 531 Unknown [id number] 2.16.840.1.298601.3.579.2. 531 Unknown [id number] 2.16.840.1.704544.3.579.2. 531 Unknown [id number] 2.16.840.1.901043.3.579.2. 531 Unknown [id number] 2.16.840.1.844358.3.579.2. 531 Unknown [id number] 2.16.840.1.708128.3.579.2. 531 Unknown [id number] 2.16.840.1.382347.3.579.2. 531 Unknown [id number] 2.16.840.1.123937.3.579.2. 531 Unknown [id number] 2.16.840.1.411032.3.579.2. 531 Social History Date Type Detail Facility Start: 04-29-2018 End: 09-05-2023 Tobacco smoking status [facility] Smoker (finding) [facility] Start: 1960 Sex Assigned At Male [facility] Start: 10-16-2019 Tobacco smoking status [facility] Ex-smoker [facility] History of tobacco use Cigarette Smoker [facility] Start: 10-16-2019 End: 07-19-2023 Cigarettes smoked current (pack per day) - Reported 1.5 [facility] Start: 10-16-2019 End: 03-13-2023 Tobacco use and exposure Smokeless tobacco non-user [facility] Start: 10-14-2020 End: 07-19-2023 Alcohol intake Ex-drinker (finding) [facility] Start: 01-20-2019 History SDOH Alcohol Comment quit 2001 [facility] Start: 10-16-2019 Tobacco Comment quit smoking 01/2019 [facility] Start: 1960 Sex Assigned At Not on file [facility] Start: 10-03-2021 End: 10-13-2021 Exposure to SARS-CoV-2 (event) Not sure [facility] Start: 07-03-2023 End: 07-19-2023 Sex Assigned At [facility] Start: 03-10-2022 End: 03-20-2022 Exposure to SARS-CoV-2 (event) Unable to assess [facility] Work Phone: Start: 12-28-2022 End: 03-13-2023 Daily Smoker [facility] Start: 03-13-2023 Tobacco Comment 6-10 cigarettes/day [facility] Start: 11-22-2022 Gender identity Identifies as male gender (finding) [facility] Start: 11-22-2022 Sexual orientation Heterosexual (finding) [facility] Medical Equipment Procedure Code Equipment Code Equipment Origin al Text Equipment Identifier Dates Angiogram, lower extremity, left Multiple peripheral artery stent, bare-metal [id number] [facility] Start: 05-07-2023 Goals Date Patient Goal Desired Activity /State Clinical Notes 11-03-2008 to 08-15-2023 Note Date & Type Note Facility 08-15-2023 Evaluation note Authored August 15, 2023 5:19pm The above note written by Serafin Flood acting as human recorder, note dictated by Dr. Griselda Krause . [facility] Work Phone: [phone]) 188-985201-15-2024 Evaluation note* Encounter Date Diagnosis Assessment Notes Treatment Notes Treatment Clinical Notes Jun, Acute cough (ICD-10 - R05.1) [...] continue to follow with them as scheduled. [facility] Other 12-14-2023 Evaluation note* Encounter Date Diagnosis Assessment Notes Treatment Notes Treatment Clinical Notes May, PAD (peripheral artery disease) (ICD-10 - I73.9) Patient recently had angioplasty for occlusion of right iliac artery that was discovered by industrial relations manager. He has been doing well since the [...] work before I provide him that consent. [facility] Other 12-13-2023 Evaluation note* Encounter Date Diagnosis [...] I will see him in 3 months. [facility] Other 11-28-2023 Evaluation note* Encounter Date Diagnosis [...] 3 months Apr, Lightheadedness (ICD-10 - R42) [facility] Other [id number] [facility]* Encounter Date Diagnosis Assessment Notes [...] questions were addressed and consent was obtained. [facility] Other 11-14-2023 Evaluation note* Encounter Date Diagnosis Assessment Notes Treatment Notes Treatment Clinical Notes Apr, Tinnitus of both ear s (ICD-10 - H93.13) The patient declines ENT referral at this time, he states he has been advised by pain management that his tinnitus could be related to cervical spine pain and perfers to wait and see if upcoming epidural injections bring any improvement. 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 He states he has an upcoming cervical epidural scheduled. The patient remains out of work on residential disability , he voices interest in returning to work soon. Apr, PAD (peripheral artery disease) (ICD-10 - I73.9) Arterial studies ordered by industrial relations manager indicating peripheral artery disease. The patient does report lower extremity pain and heaviness and I recommend it would be beneficial to consult with a vascular specialist. The patient is in agreement, therefore a referral was initiated. A CTA has been ordered by neurologist , appointment pending [facility] scheduling. Apr, Hyperlipidemia (ICD-10 - E78.5) Blood [...] vocies understanding. We will continue to monitor. [facility] Other 10-26-2023 Evaluation note* Encounter Date Diagnosis Assessment Notes Treatment Notes Treatment Clinical Notes Mar, Claudication (ICD-10 - I73.9) [facility] Other 10-25-2023 Evaluation note* Encounter Date Diagnosis [...] 4 weeks Mar, Lightheadedness (ICD-10 - R42) [facility] Other 10-24-2023 Evaluation note* Encounter Date Diagnosis Assessment Notes Treatment Notes Treatment Clinical Notes Mar, Elevated blood pressure reading (ICD-10 - R03.0) [facility] Other 09-28-2023 Evaluation note* Encounter Date Diagnosis [...] infection. Feb, Burning sensation (ICD-10 - R20.8) [facility] Other 09-21-2023 Evaluation note* Encounter Date Diagnosis [...] index finger. We will continue to monitor. [facility] Other 07-13-2023 Hospital Discharge instructions Diet Plan/Instructions [...] * Discharge Physician: : Lima Joseph MD ([id number]) - Anesthesiology, Pain Management * Discharge Physician Phone: : [phone], [place] [phone] Special Plan/Instructions for Discharge from 12/27/2022 10:26 AM: * Special Instructions : Spoke to patient Wound Care Instruction for Discharge from 12/27/2022 10:26 AM: * Special Instructions : Spoke to patient [employer] 06-20-2023 Evaluation note* Encounter Date Diagnosis Assessment [...] sent to the office to be completed. [facility] Other 05-12-2023 NoteHNO ID: [id number] Author: Sally Doyle RT(R) Service: ? Author Type: Technologist Type: Progress [...] with PATIENT DISCHARGED TO: Ambulatory patient, left [place] department area. A Diagnostic radioactive procedure has taken place, with no further precautions necessary other than routine body substance precautions. More information regarding radiation safety can be found using this link: [email or web address]%20Protection %[email or web address]-%20Diagnostic%20Nuclear%20Medicine%20Procedures.pdf SIGNATURE: RT Craig(R) PATIENT NAME: Jovani Melendez DATE: October 27, 2022 TIME: 11:55 AM PAGER/CONTACT #:[facility]05-02-2023 NoteHNO ID: [id number] Author: Arsenio Jackson MD Service: ? 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 Yes documented in this encounterOhiohealth03-29-2023 NoteHNO ID: [id number] Author: Kelton Perez PA-C Service: ? Author Type: Physician Farm Manager Type: Progress Notes Filed: 09/20/2022 11:24 AM Note Text: This note was created using HomeAwayriter. Subjective Jovani Melendez is a 61 year [...] or pronator drift. Coordination: Romberg sign negative. Ssovzs-Chnp-Ucggsa Test normal. Gait: Gait abnormal. Comments: Slightly [...] which included preparing to see the patient, zjuv-ip-imco patient care, completing clinical documentation, obtaining and/or reviewing separately obtained history, performing a medically appropriate examination, counseling and educating the patient/family/caregiver, ordering medications, tests, or procedures, communicating with other HCPs (not separately reported), independently interpreting results (not separately reported), communicating results to the patient/family/caregiver, and care coordination (not separately reported).[facility]03-29-2023 Instructions* Patient Instructions* Kelton Perez PA-C - [...] perform on same dariusz. documented in this encounterOhiohealth03-29-2023 Nurse Note* Antonia Tripathi MA - 09/13/2022 10:55 AM EDT Additional intake questions: Has the patient had fever, nausea, vomiting, diarrhea, constipation, fatigue for > 1 week? Yes, diarrhea ( 3 times in last 24 hours), fatigue, and Provider Notified Does the patient have a decreased appetite? No Does patient want to see a Application Packager? No (yes to any of above refer [...] By: Antonia Tripathi MA documented in this encounterOhiohealth03-29-2023 History of Present illness Narrative* Kelton Perez PA-C - 09/13/2022 10:44 AM EDT This note was created using HomeAway[employer]. Subjective Jovani Melendez is a 61 year [...] or pronator drift. Coordination: Romberg sign negative. Hbbiwh-Vokx-Dvjkxh Test normal. Gait: Gait abnormal. Comments: Slightly [...] which included preparing to see the patient, nmuk-lp-xsvs patient care, completing clinical documentation, obtaining and/or reviewing separately obtained history, performing a medically appropriate examination, counseling and educating the pat ient/family/caregiver, ordering medications, tests, or procedures, communicating with other HCPs (not separately reported), independently interpreting results (not separately reported), communicatingresults to the patient/family/caregiver, and care coordination (not separately reported). documented in this encounterOhiohealth03-16-2023 Evaluation note* Encounter Date Diagnosis Assessment Notes [...] her mid twenties. He will see the DIRECT CHILL CASTING OPERATOR at Dr. Cadena's office today, and will see the [facility] 09/13/22. I do feel pt needs his FMLA extended until 12/16/22. I encouraged him to continue to follow with these doctors, and we will continue to monitor. [facility] Other 02-14-2023 Evaluation note* Encounter Date Diagnosis [...] medication and we will continue to monitor. 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 I did prescribe the above medication and encouraged pt to increase fluid intake, throat lozenges or gargle with mouth wash as needed. Pt is to also take OTC pain medication and fever reducers as needed. [facility] Other 01-11-2023 Evaluation note* Encounter Date Diagnosis Assessment Notes Treatment Notes Treatment Clinical Notes Jun, Other complicated headache syndrome (ICD-10 - G44.59) [facility] Other 12-09-2022 Evaluation note* Encounter Date Diagnosis [...] check on him again in 1 month. [facility] Other 10-30-2022 Hospital Discharge instructions Additional Instructions [...] week to see how you are doing. [facility] Work Phone: [phone] Miscellaneous Notes* Telephone Encounter - Memo Cole MD - 03/27/2022 3:54 PM EDT Good with me * Telephone Encounter - Asya Greene RN - 03/27/2022 2:17 PM EDT Informed patient of your recommendations. He states that he is seeing neurology in [place] and they do not feel he needs [...] the weekend about an appointment with a [facility] neurosurgeon. He has not seen you since 10/2021. He states st that time you did not see the need for a neurosurgeon as his tumor wastoo small. Now he all of the sudden has an appointment with this [facility] neurosurgeon and is confused. Can you review and advise as to this appointment with the neurosurgeon. Asya Greene RN documented in this encounterOhiohealth09-29-2022 Miscellaneous Notes* Telephone Encounter - Pamela Nascimento APRN.CNP - 03/16/2022 2:51 PM EDT Time Frame: Next available Provider: Intra-axial neurosurgeon & Neuro-Oncology (same day) Referring: Memo Cole MD Please instruct patient to hand carry/ upload images prior to appt Dx: Low grade glioma Patient: Jovani Melendez Address: Jvoani Melendez [id number] [place], [place] [id number] Per Triage: Jovani Melendez is a 61 year old male that requests evaluation of previously diagnosed possible low grade glioma. Patient expectations: Second opinion Tumor Specifics: Location: brain Previous Evaluations: MRI w/wo contrast (10/05/21): 10/05/2021 MRI Brain [facility] Impression: 1. There is T2 and T2 [...] [facility] Epic access? Yes documented in this encounterOhiohealth09-29-2022 Evaluation note* Encounter Date Diagnosis Assessment Notes [...] see if this gives him some relief [facility] Other 08-15-2022 Evaluation note* Encounter Date Diagnosis [...] - G93.9) Patient had another MRI at [facility]. We are awaiting for the results to [...] did hold off on any pain medications. 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 Espinal but the patient got no where. The patient voices interest in seeing Dr. Cadena since he is coming back into [facility]. I am agreeable to refer the patient [...] blood pressure was elevated upon check in. [facility] Other 06-20-2022 Evaluation note* Encounter Date Diagnosis [...] rule out other causes of his symptoms. [facility] Other 05-24-2022 Evaluation note* Encounter Date Diagnosis [...] will complete the necessary medical disability forms. 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 Narayan, and he is now referring on to Dr. [facility]ny [facility]igil at the [facility] for 2nd opinion. Reviewed consult note from [...] this medication. Will continue to follow up [facility] Other 05-12-2022 History of Present illness Narrative* Memo Cole MD - 10/27/2021 5:05 PM EDT Images from the original note were not included. NAME: Jovani Melendez CLINIC NO.: [id number] DATE OF SERVICE: October 27, 2021 Some elements in this clinic note that are critical to medical decision making have been carefully reviewed and included from a prior clinic note dated: October 13, 2021 Referring Provider: Griselda Krause, DO Additional Clinicians involved in Jovani Melendez's care: Dr Kimberly Nichole ENT, Dr. 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 TREATMENT TO DATE: 01/30/19 He had a neck dissection at [facility] HPI: Updated Visit, October 27, 2021: Telephone [...] COMP METABOLIC PANEL Memo Cole MD, CPE [place], [place] CC: Griselda Krause, [address] [address] [address] NEWMAN ENT[address] Dr. Nichole ENT Dr. Ibarra CT surgery [facility]. documented in this encounterOhiohealth05-09-2022 Evaluation note* Encounter Date Diagnosis Assessment Notes [...] him on to see Dr. Jonny Vigil. [facility] Other 05-04-2022 Miscellaneous Notes* Telephone Encounter - Haily Jovel Pss - 10/19/2021 12:56 PM EDT Called [facility] Neuro Office spoke with Leslee. She states they have received patient records/referral and have patient scheduled to see Dr Narayan on 10/24. Haily Jovel Pss * Telephone Encounter - Asya Gramajo [facility] - 10/18/2021 10:34 AM EDT Records faxed. * Telephone Encounter - Haily Med Pss - 10/13/2021 12:24 PM EDT Noelle: Information ready for you. Haily Jovel Pss * Telephone Encounter - Antonia Mcguire - 10/13/2021 10:33 AM EDT Referral to neurosurgery - Dr. Narayan or [facility] Noelle/Layo: Can you please refer patient and follow up? Thanks! Antonia Mcguire documented in this encounterOhiohealth04-28-2022 History of Present illness Narrative* Memo Cole MD - 10/13/2021 10:19 AM EDT Images from the original note were not included. NAME: Jovani Melendez [facility] NO.: [id number] DATE OF SERVICE: October 13, 2021 Some elements in this clinic note that are critical to medical decision making have been carefully reviewed and included from a prior clinic note dated:October 14, 2020 Referring Provider: Griselda Krause, Additional Clinicians involved in Jovani Melendez's care: Dr Kimberly Nichole ENT, Dr. 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 Reviewed scans and there is no evidence [...] adenopathy is identified. 4. 10/05/2021 MRI Brain [facility] Impression: 1. There is T2 and T2 [...] and neck (HCC) Memo Cole MD, CPE [facility] Cancer [place], [place] CC: Griselda Krause, DO [address] [phone] [address] Kimberly EL[facility]ABETHS ENT. Dr. Nichole ENT Dr. Ibarra [place] surgery [facility]. documented in this encounterOhiohealth04-21-2022 Miscellaneous Notes* Telephone Encounter - Memo Cole [...] Krause thinks pt may need referral to [facility] but wanted to let Dr Mcgregor review and decide next steps. Asya Kumar RN documented in this encounterOhiohealth04-04-2022 Evaluation note* Encounter Date Diagnosis Assessment Notes [...] to continue with monitoring diet and exercise. [facility] Other 03-28-2022 Evaluation note* Encounter Date Diagnosis Assessment Notes Treatment Notes Treatment Clinical Notes Aug, Anxiety and depression (ICD-10 - F41.8) [facility] Other 01-13-2022 Evaluation note* Encounter Date Diagnosis Assessment Notes Treatment Notes Treatment Clinical Notes Jun, Sinusitis (ICD-10 - J32.9) I did prescribe the above medications and work note provided. [facility] Other 01-12-2022 Evaluation note* Encounter Date Diagnosis Assessment Notes Treatment Notes Treatment Clinical Notes Jun, Sinus pressure (ICD-10 - J34.89) Patient advised of negative results. Encouraged him to call if symtpoms persist or worsen, he verbalized understanding. [facility] Other 11-02-2021 Evaluation note* Encounter Date Diagnosis Assessment Notes Treatment Notes Treatment Clinical Notes Apr, Sinus congestion (ICD-10 - R09.81) [facility] Other 10-28-2021 Evaluation note* Encounter Date Diagnosis [...] Encouraged patient to continue with their efforts. [facility] Other 12-01-2016 History general Narrative - Reported* [...] surgery 02/04 19 Hospitalization History see above [facility] Other 12-01-2016 History general Narrative - Reported* [...] 02/04 19 Surgical History Spinal tap at [facility] 11/07/2021 Hospitalization History see above [facility] Other 12-01-2016 History general Narrative - Reported* [...] 02/04 19 Surgical History Spinal tap at [facility] 11/07/2021 Hospitalization History see above [facility] Other 12-01-2016 History general Narrative - Reported* [...] dissection 01/2019 Surgical History Spinal tap at [facility] 11/07/2021 Hospitalization History see above [facility] Other 12-01-2016 History general Narrative - Reported* [...] dissection 01/2019 Surgical History Spinal tap at [facility] 11/07/2021 Surgical History LP at [facility] 08/2022 Hospitalization History see above [facility] Other 12-01-2016 History general Narrative - Reported* [...] dissection 01/2019 Surgical History Spinal tap at [facility] 11/07/2021 Surgical History LP at [facility] 08/2022 Hospitalization History see above [facility] Other 12-01-2016 History general Narrative - Reported* [...] dissection 01/2019 Surgical History Spinal tap at [facility] 11/07/2021 Surgical History LP at [facility] 08/2022 Surgical History angioplasty right iliac artery 04/2023 Hospitalization History see above [facility] Other 05-19-2009 History of Present illness Narrative* [...] He saw Dr. Ba a neurologist in [facility]. * He describes his vision as seeing 1-1/2 . He describes this does not seem quite to but finding a time lab between moving his eyes and having the visual change. 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 Malignant neoplasm of head, face, and neck Lung nodules Other nonspecific abnormal finding of lung field Malignant neoplasm of head, face and neck (HCC) Malignant neoplasm of head, face, and neck documented in this encounter [facility] noteNo InformationNort [employer] Other Evaluation noteNo assessment information available [facility] Work Phone: Evaluation note* Diagnosis Onset Date Resolution Status Migraine acute [facility] Work Phone: Evaluation note* Diagnosis NPH (normal pressure hydrocephalus) (HCC)- Primary Idiopathic normal pressure hydrocephalus (INPH) documented in this encounter [facility]* Diagnosis 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HCC)- Primary NPH (normal pressure hydrocephalus) (HCC) Idiopathic normal pressure hydrocephalus (INPH) documented in this encounter [facility]* Diagnosis 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HCC) NPH (normal pressure hydrocephalus) (HCC) Idiopathic normal pressure hydrocephalus (INPH) documented in this encounter [facility]* Diagnosis Onset Date Resolution Status Anxiety and depression acute Essential hypertension acute Hyperlipidemia acute Osteoarthritis cervical spine acute PAD (peripheral artery disease) acute [facility] Work Phone: Hospital Discharge instructions Additional Instructions Obtain Elsy pot and perform nasal irrigations twice a dayDoctors Hospital Work Phone: Summary Purpose Family History [...] grandparent Unknown Not Specified Heart disease Unknown Relationship Condition Age at Onset Recorded Date/T yolie father Malignant neoplasm Unknown Unknown Not Specified Heart disease Unknown Diabetes mellitus Unknown brother Hypertension Unknown sister Heart disease Unknown Advance Directives No Advanced Directives Records Found Advance Directive Response Recorded Date/ Time Advance Directives No December 10 8:00pm Advance Directive Response Recorded Date/ Time Advance Directives No December 10 7:00pm Advance Directive Response Recorded Date/ Time Advance Directives No July 07, 2023 8:27am Advance Directive Response Recorded Date/ Time Advance Directives No July 07, 2023 9:27am Chief Complaint and Reason for Visit Chief [...] Osteoarthritis cervical spine PAD (peripheral artery disease) Chief Complaint 1 Month Follow Up 1 MONTH F/U follow up per brk I70.213 3m F/U; PAD; MARK's B/L legs at 11:30am Reason for Visit Anxiety and depressi on Essential hypertension Hyperlipidemia Osteoarthritis cervical spine PAD (peripheral artery disease) Anxiety and depression Balance disorder Glioma of brain PAD (peripheral artery disease) Chief Complaint 1 Month Follow Up 1 MONTH F/U follow up per brk I70.213 3m F/U; PAD; MARK's B/L legs at 11:30am HBP Reason for Visit Anxiety and depressi on Essential hypertension Hyperlipidemia Osteoarthritis cervical spine PAD (peripheral artery disease) Anxiety and depression Balance disorder Glioma of brain PAD (peripheral artery disease) Cardiac arrhythmia Glioma of brain Hyperlipidemia PAD (peripheral artery disease) Assessments No Assessments Information Available Reason for Referral Specialty Diagnoses / Procedures Referred By Roverto moraes Referred To Contact Neurosurgery Diagnoses Glioma of brain (HCC) Procedures CONSULT TO NEUROSURGERY OFFICE/OUTPATIENT [facility] 60-74 MINUTES Memo Cole MD [address] [place] [address] [place] [address] Referral ID Status Reason Start Date Expiration Date Visits Requested Visits Authorized [id number] Authorized PCP Requested Referral 10/13/2021 10/13/2022 1 1 Specialty Diagnoses / Procedures Referred By Contpalomo t Referred To Contact CT IMAGING Diagnoses Lung nodules Procedures CT CHEST W IVCON DIAGNOSTIC COMPUTED TOMOGRAPHY THORAX W/CONTRAST Memo Cole MD [address] [place] [address] Ct Imaging Referral ID Status Reason Start Date Expiration Date Visits Requested Visits Authorized [id number] Pending Review Auto-Generat ed Referral 10/30/2022 11/29/2022 1 1 Specialty Diagnoses / Procedures Referred By Contac t Referred To Contact CT IMAGING Diagnoses Malignant neoplasm of head, face and neck (HCC) Procedures CT NECK SOFT TISSUE W IVCON CT SOFT TISSUE NECK W/CONTRAST MATERIAL Memo Cole MD [address] [place] [address] Ct Imaging Referral ID Status Reason Start Date Expiration Date Visits Requested Visits Authorized [id number] Pending Review Auto-Generat ed Referral 10/30/2022 11/29/2022 1 1 Reason *FU 10/31 Evaluate and Treat Brainstem Lesion 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) Referral Organization [facility] urosurgery Referring Provider First Name Sheng Referring Provider Last Name Wyatt Referring Provider Specialty Neurosurger y Referred Organization [facility] Referred Provider Jonny Vigil Referred Address [address] [place], [place],[address] Referred Provider Specialty Neurological Surgery Referral Priority Routine General Notes Fore, Linnea M 022 02:09:54 PM >Received and fax referral today Reason consult and treat (p t is willing to see him in [place], if not then will see at [facility]) 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) Diagnosis 2 Cervical pain (neck) (M54.2) Diagnosis 3 Pressure in head (R5 1.9) Referral Organization [facility] Referring Provider First Name Griselda Referring Provider Last Name Nelida Referring Provider Specialty Family Prac henny Referred Organization [facility] Referred Provider Elvi Cadena W Referred Address [address] [place],[address] Referral Priority Routine Specialty Diagnoses / Procedures Referred By Contac t Referred To Contact MR IMAGING Diagnoses 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HCC) Procedures MRI BRAIN WO/W IVCON MRI BRAIN BRAIN STEM W/O W/CONTRAST MATERIAL Jakubek, Kelton J, BILLY [address] [place] [address] Mr Imaging Referral ID Status Reason Start Date Expiration Date Visits Requested Visits Authorized [id number] Authorized Auto-Generat ed Referral 09/20/2022 10/20/2023 1 1 Referral ID Status Reason Start Date Expiration Date V isits Requested Visits Authorized [id number] Closed Auto-Generate d Referral 09/20/2022 10/20/2023 1 1 Reason pt requesting n ot Dr. Verma, but can see other providers from that group evaluate and treat tinnitus and balance issues Diagnosis 1 Tinnitus of both ear s (H93.13) Diagnosis 2 Balance disorder (R2 6.89) Referral Organization [facility] Cardiology Referring Provider First Name Lilliam Referring Provider Last Name Kamla Referring Provider Specialty Cardiovascu lar Disease Referred Organization [facility] Referred Provider Manuela Ballesteros Referred Address ,[place], [place],[address] Referred Provider Specialty Ear, Nose an d Throat Referral Priority Routine General Notes Yessica Brown 12:40:36 PM >received today, pt has medicaid insurance, will send to Dr. Ballesteros, attachments made, waiting for notes to be locked Reason consult and treat Diagnosis 1 PAD (peripheral arnie ry disease) (I73.9) Referral Organization [facility] Referring Provider First Name Griselda Referring Provider Last Name Nelida Referring Provider Specialty Family Prac henny Referred Organization [facility] Vascular Surge ry Referred Provider Filipe Hess Referred Address [address] [place] [address],[place], [place],[address] Referred Provider Specialty Vascular Abdirahman yvon Referral [...] section and content) DATE CREATED AUTHOR 08/01/2019 [facility] DATE CREATED AUTHOR AUTHOR'S ORGANIZ ATION 11/05/2021 [facility] DATE CREATED AUTHOR AUTHOR'S ORGANIZ ATION 01/19/2022 [facility] Me dical Specialist DATE CREATED AUTHOR AUTHOR'S ORGANIZ ATION 10/02/2022 [facility] DATE CREATED AUTHOR AUTHOR'S ORGANIZ ATION 10/31/2022 [facility] DATE CREATED AUTHOR AUTHOR'S ORGANIZ ATION 12/25/2022 [facility] DATE CREATED AUTHOR AUTHOR'S ORGANIZ ATION 02/15/2023 [facility] DATE CREATED AUTHOR AUTHOR'S ORGANIZ ATION 08/03/2023 [facility] DATE CREATED AUTHOR AUTHOR'S ORGANIZ ATION 09/06/2023 [facility] DATE CREATED AUTHOR AUTHOR'S ORGANIZ ATION 09/10/2023 [facility] DATE CREATED AUTHOR AUTHOR'S ORGANIZ ATION 09/10/2023 [facility] dical Specialists EPIC Source Comments (unrecognize d section and content) In the event this informatio n is protected by the Federal Confidentiality of Alcohol and Drug Abuse Patient Records regulations: The Federal rules restrict any use of the information to criminally investigate or prosecute any alcohol or drug abuse patient.OhiohealthIn the event this information is protected by the Federal Confidentiality of Alcohol and Drug Abuse Patient Records regulations: The Federal rules restrict any use of the information to criminally investigate or prosecute any alcohol or drug abuse patient.OhiohealthIn the event this information is protected by the Federal Confidentiality of Alcohol and Drug Abuse Patient Records regulations: The Federal rules restrict any use of the information to criminally investigate or prosecute any alcohol or drug abuse patient.OhiohealthIn the event this information is protected by the Federal Confidentiality of Alcohol and Drug Abuse Patient Records regulations: The Federal rules restrict any use of the information to criminally investigate or prosecute any alcohol or drug abuse patient.[place]healthIn the event this information is protected by the Federal Confidentiality of Alcohol and Drug Abuse Patient Records regulations: The Federal rules restrict any use of the information to criminally investigate or prosecute any alcohol or drug abuse patient.[place]healthIn the event this information is protected by the Federal Confidentiality of Alcohol and Drug Abuse Patient Records regulations: The Federal rules restrict any use of the information to criminally investigate or prosecute any alcohol or drug abuse patient.[place]healthIn the event this information is protected by the Federal Confidentiality of Alcohol and Drug Abuse Patient Records regulations: The Federal rules restrict any use of the information to criminally investigate or prosecute any alcohol or drug abuse patient.[place]healthIn the event this information is protected by the Federal Confidentiality of Alcohol and Drug Abuse Patient Records regulations: The Federal rules restrict any use of the information to criminally investigate or prosecute any alcohol or drug abuse patient.[place]healthIn the event this information is protected by the Federal Confidentiality of Alcohol and Drug Abuse Patient Records regulations: The Federal rules restrict any use of the information to criminally investigate or prosecute any alcohol or drug abuse patient.[facility] Reason for Visit (unrecogniz ed section and content) Reason Comments Results Reason Comments Head and Neck Cancer Specialty Diagnoses / Procedures Referred By Contac t Referred To Contact Hematology/Oncology / HEMATOLOGY/ONCOLOGY Diagnoses Follow-up examination 1 year follow up LABS WITH CT Procedures EST PATIENT Memo Cole MD [address] [place] [address] [place] [address] Memo Cole MD [address] [place] [address] Referral ID Status Reason Start Date Expiration Date Visits Re quested Visits Authorized [id number] Closed 10/13/2021 06/17/2022 1 1 Reason Comments Referral Information Neurosurgery Reason Comments Established Patient Specialty Diagnoses / Procedures Referred By Contac t Referred To Contact Hematology/Oncology / HEMATOLOGY/ONCOLOGY Diagnoses 2 week phone follow up [phone] Procedures PHYS/QHP TELEPHONE EVALUATION 5-10 MIN PROVIDER SPECIALTY PHONE CALL Memo Cole MD [address] [place] [address] Memo Cole MD [address] [place] [address] Referral ID Status Reason Start Date Expiration Date Visits Re quested Visits Authorized [id number] Closed 10/27/2021 06/17/2022 1 1 Reason Comments Triage Internal Referral--o ld Reason Comments Appointment Reason Comments New Patient Specialty Diagnoses / Procedures Referred By Contac t Referred To Contact Neurology / BRAIN TUMOR Diagnoses Hydrocephalus (HCC) Hydrocephalus Procedures OFFICE/OUTPATIENT NEW MODERATE MDM 45-59 MINUTES NEW SURGICAL Elvi Cadena MD [address] [address] Kelton Perez PA-C [address] [place] [address] Referral ID Status Reason Start Date Expiration Date Visits Re quested Visits Authorized [id number] Closed 09/13/2022 06/17/2023 1 1 Reason Comments Patient Question Reason Comments Radiology MRI Specialty Diagnoses / Procedures Referred By Contac t Referred To Contact MR IMAGING Diagnoses 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HCC) Procedures MRI BRAIN WO/W IVCON MRI BRAIN BRAIN STEM W/O W/CONTRAST MATERIAL Kelton Perez PA-C [address] [place] [address] Mr Imaging Referral ID Status Reason Start Date Expiration Date V isits Requested Visits Authorized [id number] Closed Auto-Generate d Referral 09/20/2022 10/20/2023 1 1 Care Teams (unrecognized sec tion and content) Steam Box Tender Relationship Specialty Start Date End Date Griselda Krause [address] [place] [address], [place] [address] PCP - General Family Practice 11/20/18 Griselda Krause [address] [place] [address], [place] [address] Referring Family Practice 11/20/18 Steam Box Tender Relationship Specialty Start Date End Date Griselda Krause [address] [place] [address], [place] [address] PCP - General Family Practice 11/20/18 Griselda Krause [address] [place] [address], [place] [address] Referring Family Practice 11/20/18 Steam Box Tender Relationship Specialty Start Date End Date Griselda Krause [address] [place] [address], [place] [address] PCP - General Family Practice 11/20/18 Griselda Krause [address] [place] [address], [place] [address] Referring Family Practice 11/20/18 Steam Box Tender Relationship Specialty Start Date End Date Griselda Krause [address] [place] [address], [place] [address] PCP - General Family Practice 11/20/18 Griselda Krause [address] [place] [address], [place] [address] Referring Family Practice 11/20/18 Steam Box Tender Relationship Specialty Start Date End Date Griselda Krause [address] [place] [address], [place] [address] PCP - General Family Medicine 11/20/[address] [place] [address] Referring Family Medicine 11/20/18 Steam Box Tender Relationship Specialty Start Date End Date Griselda Krause[address] [place] [address] PCP - General Family Medicine 11/20/[address] [place] [address] Referring Family Medicine 11/20/18 Team Status: Inactive Member Role Status Poornima Krause DO Primary Care Provider Active Daniel Gaytan APRN Emergency Provider Active Team Status: Active Member Role Status Poornima Krause DO Primary Care Provider Active Elvi Cadena MD Attending Provider Active Team Status: Active Member Role Status Poornima Krause DO Primary Care Provider Active Team Status: Inactive Member Role Status Poornima Griselda Krause DO Primary Care Provider Active Loi Wong Jr, MD Emergency Provider Active Team Status: Active Member Role Status Poornima Krause DO Primary Care Provider Active Nikole Thomason APRN NP-C Attending Provider A ctive Team Status: Inactive Member Role Status Poornima Griselda Krause DO Primary Care Provider Active Elvi Cadena MD Attending Provider Active Team Status: Inactive Member Role Status Poornima Griselda Krause DO Primary Care Provider Active Nikole Thomason APRN DIRECT CHILL CASTING OPERATOR-C Attending Provider A ctive Steam Box Tender Relationship Specialty Start Date End Date Griselda [address] [place] [address] PCP - General Family Medicine 11/20/18 Griselda Krause [address] [place] [address] Referring Family Medicine 11/20/18 Elvi Cadena MD [address] [facility] [address] [place] [address], [place] [address] Referring Neurology 08/18/22 Steam Box Tender Relationship Specialty Start Date End Date Griselda Krause [address] [place] [address], [place] [address] PCP - General Family Medicine 11/20/18 Griselda Krause [address] [place] [address], [place] [address] Referring Family Medicine 11/20/18 Elvi Cadena MD [address] [facility] [address] [address] [place] [address], [place] [address] Referring Neurology 08/18/22 Steam Box Tender Relationship Specialty Start Date End Date Griselda Krause [address] [place] [address], [place] [address] PCP - General Family Medicine 11/20/18 Griselda Krause [address] [place] [address], [place] [address] Referring Family Medicine 11/20/18 Elvi Cadena MD [address] [facility] [address] Referring Neurology 08/18/22 Team Status: Inactive Member [...] Active Team Status: Inactive Member Role Status Poornima Krause DO Primary Care Provider Active Ruddy Harvey MD Attending Provider Active Steam Box Tender Relationship Specialty Start Date End Date Griselda Krause [address] [place] [facility] [place] [phone] PCP - [facility] Family Medicine 02/13/23 Steam Box Tender Relationship Specialty Start Date End Date Griselda Krause DO [address] [place] [facility] [address] PCP - [facility] Medicine 02/13/23 Team Status: Inactive Member Role Status Dates Griselda Krause DO Primary Care Provider Active Sta rt: May 04, 2023 End: May 04, 2023 Nikole Thomason APRN DIRECT CHILL CASTING OPERATOR-C Attending Provider Active Start: April End: May [...] Dates Griselda Krause , DO Primary Care Provide r, Attending Provider Active Start: August 02, 2023 End: August 02, 2023 Team Status: Inactive Member Role Status Dates Griselda Krause , DO Primary Care Provide r, Attending Provider Active Start: August 15, 2023 End: August 15, 2023 Team Status: Active Member Role Status Poornima Griselda Krause , DO Primary Care Provider Active Sta rt: September 05, 2023 Ruddy Harvey MD Attending Provider Active Start: September 05, 2023 Team Status: Inactive Member Role Status Poornima Mendezgideon , DO Primary Care Provider Active Sta rt: September 05, 2023 End: September 05, 2023 Ruddy Harvey MD Attending Provider Active Start: September 05, 2023 End: September 05, 2023 Team Status: Inactive Member Role Status Poornima Krause , DO Primary Care Provider Active Sta rt: September 05, 2023 End: September 05, 2023 Lilliam Cason MD Attending Provider Active Sta rt: September 05, 2023 End: September 05, 2023 Goals (unrecognized section and content) Goals [...] BE BASED ON THE PRIMARY CLINICAL RECORDS. [facility] [employer] [facility]. provides no warranty or guarantee of the accuracy or completeness of information in this document.
--- NOTE | 2023-09-12 10:26 | P.CN_ITS ---
Consult Note: HPI Data of Consult Patient: known to practice within the last 3 years Requesting Physician: Delia Bowser NP Primary Care Provider: GRISELDA KRAUSE Consult Narrative Reason for consult: f/u Narrative: Jovani Kong a pleasant 62 year old male presents for evaluation and management of chronic neck and left shoulder pain. Recently underwent left suprascapular and axillary nerve block with 90% ongoing improvement in left shoulder pain. Continues to have moderate to severe neck pain, today pain 5/10 increasing to8/10 with activity and lifting. Patient utilizing tylenol, ibuprofen, zanaflex, baclofen, norco 5-325 PRN. Patient could not tolerate gabapentin 100- 200, too drowsy. Patient would like to discuss facet blocks for chronic neck pain. 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 cc:: CC: Delia Bowser NP Review of Systems ROS Status of ROS 10 or more systems reviewed and unremark able except as noted in h istory and below Musculoskeletal Reports: neck pain and joint pain PFSH PFSH Medical History Neck pain ?M54.2 - Cervicalgia (ICD-10) Low back pain ?M54.50 - Low back pain, unspecified (ICD-10) Smoker ?F17.200 - Nicotine dependence, unspecified, uncomplicated (ICD-10) Irregular heart beat ?I49.9 - Cardiac arrhythmia, unspecified (ICD-10) Hypertension ?I10 - Essential (primary) hypertension (ICD-10) Surgical History H/O neck dissection ?Z98.890 - Other specified postprocedural states (ICD-10) Meds Home Medications and Allergies Home Medications ?Medication ?Instructions ?Recorded ?Confirmed ?Type amlodipine 5 mg tablet (Norvasc) 5 mg PO DAILY 04/16/23 09/03/23 History aspirin 81 mg tablet,delayed 81 mg PO DAILY 04/16/23 09/03/23 History release (Adult Low Dose Aspirin) citalopram 20 mg tablet (Celexa) 20 mg PO DAILY 04/16/23 09/03/23 History hydroxyzine HCl 25 mg tablet 25 mg PO BID PRN sleep 04/16/23 09/03/23 History mirtazapine 15 mg tablet 15 mg PO DAILY 04/16/23 09/03/23 History tizanidine 4 mg capsule 4 mg PO DAILY 04/16/23 09/03/23 History hydrocodone 5 mg-acetaminophen 325 1 tab PO DAILY PRN severe pain #30 06/27/23 09/03/23 Rx mg tablet tabs clopidogrel 75 mg tablet (Plavix) 75 mg PO DAILY 08/23/23 09/03/23 History naproxen 250 mg tablet 250 mg PO BID PRN pain 08/23/23 09/03/23 History Allergies Allergy/AdvReac Type Severity Reaction Status Date / Time cephalexin [From Keflex] Allergy Unknown Verified 09/03/23 07:36 Exam Constitutional Documenting provider has reviewed patient's vital signs: yes Common normals: no apparent distress, oriented x3, healthy appearing, alert and well nourished General appearance: cooperative [facility] Common normals: normocephalic, hearing grossly normal bilaterally and moist oral mucous membranes Head and scalp: normocephalic Eye Common normals: PERRL Pupil: PERRL Neck & C-Spine Common normals: full ROM General: normal visual inspection Cervical spine: cervical ROM normal and pain with cervical ROM Other: negative spurlings, negative radiculopathy facet pain at bilateral C4-5 C5-6 left greater than right Chest Common normals: inspection of chest normal Respiratory Common normals: normal respiratory effort, no retractions and no use of accessory muscles Extremity Left upper extremity: shoulder joint Other: good ROM, empty can test negative, scratch test negative, no pain with cross adduction. significant weakness in LUE. cannot keep arms extended with forced downward pressure Neuro Common normals: oriented x3, CN's II-XII intact bilaterally, moves all extr emities, no focal motor deficits, no sensory deficits noted and deep tendon reflexes 2+ bilaterally Sensorium/orientation: alert Motor exam: strength 5/5 throughout and no movement abnormalities noted Psych Common normals: mental status grossly normal, thought process normal, cooperative, affect normal, speech normal and activity/motor behavior normal Speech: normal speech Thought process: normal thought process Results Additional Findings Additional findings: If on a controlled substance or opioids, I have checked an [place] report on this patient and there are no aberrancies noted in the prescribing history.??If on a controlled substance or opioid a drug screen was completed and reviewed within the last year, and if there has not been a drug screen completed we ordered one today to monitor higher risk, state monitored pain medication use. As part of providing excellent, safe, comprehensive care, the following was completed at our patient's visit: 1. A medication reconciliation and review to ensure accurate knowledge of current/active medications, including asking our patients to inform us about any [id number] medications or herbal remedies/nutritional supplements/alternative remedies. 2. A review to specifically ensure our patients have had annual screening for screening for depression, screening for tobacco use, and screening for unhealthy alcohol use. For concerning screenings had a discussion with the patient, provided patient education, and recommended follow-up with primary care provider when appropriate. If patient noted with a risk of falling, they received education on strength, gait, and balance training to prevent future risk of falling. Assessment and Plan Assessment and Plan (1) Cervical spondylosis: Assessment and Plan: The patient has had over 3 months of moderate to severe neck pain with functi onal impairment and inadequate response to conservative care including NSAIDS (unless there are contraindication such as concurrent blood thinners), multiple oral or topical pain medications, and home exercise program/physical therapy.? Patient has completed >6 weeks of guided home exercise program and/or formal physical therapy program without relief of their symptoms.? I have reviewed the imaging of the cervical spine and no red flags were identified.? The Oswestry Disability Index was completed, and the patient scored a 27%.? The patient noted the following:?? moderate to severe pain, pain impacting sleep, pain with ADLs, pain with social life and travel We discussed the risks and benefits of the procedure with the patient, and we are NOT planning on using sedation as outlined in the guidelines from Medicare unless there is a documented reason that sedation would be strongly recommended.?? ?The procedure will be completed with fluoroscopic guidance. 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 left suprascapular and axillary nerve block providing greater than 90% ongoing improvement left shoulder xray reviewed with pt, mild OA continue norco 5-325 daily prn moderate to severe pain continue zanaflex 4mg HS PRN defer NS referral for evaluation per pt request, continue f/u with neurology for brain stem lesion f/u after facet block
== END 2023-09-12 10:11 | disposition home or self-care (01) ==
LOC: PM 10:13
PROVIDERS: PCP Family Medicine; Visit Provider Nurse Practitioner
DX: M47.812 Spondylosis without myelopathy or radiculopathy, cervical region (principal); M25.512 Pain in left shoulder; M54.12 Radiculopathy, cervical region; M48.02 Spinal stenosis, cervical region; M79.18 Myalgia, other site; G56.82 Other specified mononeuropathies of left upper limb
CPT/HCPCS: G0463

== ENCOUNTER 2023-10-01 09:04 | Day surgery (SDC) | payer OTHER, SELFPAY ==
[2023-10-01 09:48] VITALS: BP 141/84; PULSE 71; TEMP 36.6; O2SAT 99
[2023-10-01] MEDS: LIDOCAINE HCL 2% PF 100 MG/5 ML VIAL INJ (10:32)
[2023-10-01] MEDS: BUPIVACAINE HCL 0.25% PF 25 MG/10 ML VIAL INJ (10:32)
[2023-10-01] MEDS: DEXAMETHASONE SOD PHOS 10 MG/ML VIAL INJ (10:32)
[2023-10-01 10:33] VITALS: BP 133/71; BP 139/67; PULSE 69; PULSE 72; O2SAT 95; O2SAT 96
--- NOTE | 2023-10-01 10:35 | W.PM.PROCNOT ---
Date of procedure: 10/01/23 Pre-op diagnosis: Cervical spondylosis Post-op diagnosis: same as pre-op Procedure: Procedure: Bilateral C4-5, 5-6 medial branch block Medications: Bupivacaine 0.25% 6cc The patient was seen and examined in the preoperative holding area.? The informed consent was obtained and placed on the chart.? The patient was brought to the medical procedure unit and placed in the prone position.? A timeout was completed verifying correct patient, procedure site, positioning, plan, and special equipment.? Using aseptic technique, the needle was placed at left C4.? Under direct fluoroscopic visualization, a Quincke tip needle was advanced to the midpoint of the waist of the articular pillar at the respective medial branch segment. The above-mentioned injectate was placed in a 1 mL aliquot proceeded by negative aspiration.? The needle was removed.? The procedure was completed at all left C5, 6. The same procedure, at the same levels, was then completed on the right side. Insertion site was covered.? Patient was taken to the postprocedural recovery area and monitored for an appropriate length of time before found suitable for discharge in the accompaniment of a responsible adult. Anesthesia: Local Surgeon: Sarina Ramsey Pathology: none sent Condition: stable Disposition: no change
== END 2023-10-01 10:40 | disposition home or self-care (01) ==
PROVIDERS: PCP Family Medicine; Visit Provider Anesthesiology
DX: M47.812 Spondylosis without myelopathy or radiculopathy, cervical region (principal)
CPT/HCPCS: 64490; 64491; J1100

== ENCOUNTER 2023-10-10 09:08 | Outpatient (OUT) | payer OTHER, SELFPAY ==
--- NOTE | 2023-10-10 09:35 | P.CN_ITS ---
Consult Note: HPI Data of Consult Patient: known to practice within the last 3 years Requesting Physician: Delia Bowser NP Primary Care Provider: GRISELDA KRAUSE Consult Narrative Reason for consult: f/u Narrative: Jovani Kong a pleasant 62 year old male presents for evaluation and management of chronic neck and left shoulder pain. Previously underwent left suprascapular and axillary nerve block with 90% ongoing improvement in left shoulder pain. Continues to have moderate to severe neck pain, today pain 5/10 increasing to 8/10 with activity and lifting. Patient utilizing tylenol, ibuprofen, zanaflex, baclofen, norco 5-325 PRN. Patient could not tolerate gabapentin 100-200, too drowsy. Patient would like to discuss facet blocks for chronic neck pain. 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 Patient underwent bilateral C4-5 C5-6 facet medial branch block #1 with 90% improvement in pain for 1 day. cc:: CC: Delia Bowser NP Review of Systems ROS Status of ROS 10 or more systems reviewed and unremark able except as noted in history and below Musculoskeletal Reports: neck pain PFSH PFSH Medical History Neck pain ?M54.2 - Cervicalgia (ICD-10) Low back pain ?M54.50 - Low back pain, unspecified (ICD-10) Smoker ?F17.200 - Nicotine dependence, unspecified, uncomplicated (ICD-10) Irregular heart beat ?I49.9 - Cardiac arrhythmia, unspecified (ICD-10) Hypertension ?I10 - Essential (primary) hypertension (ICD-10) Surgical History H/O neck dissection ?Z98.890 - Other specified postprocedural states (ICD-10) Meds Home Medications and Allergies Home Medications ?Medication ?Instructions ?Recorded ?Confirmed ?Type amlodipine 5 mg tablet (Norvasc) 5 mg PO DAILY 04/16/23 10/01/23 History aspirin 81 mg tablet,delayed 81 mg PO DAILY 04/16/23 10/01/23 History release (Adult Low Dose Aspirin) citalopram 20 mg tablet (Celexa) 20 mg PO DAILY 04/16/23 10/01/23 History hydroxyzine HCl 25 mg tablet 25 mg PO BID PRN sleep 04/16/23 10/01/23 History mirtazapine 15 mg tablet 15 mg PO DAILY 04/16/23 10/01/23 History tizanidine 4 mg capsule 4 mg PO DAILY 04/16/23 10/01/23 History hydrocodone 5 mg-acetaminophen 325 1 tab PO DAILY PRN severe pain #30 06/27/23 10/01/23 Rx mg tablet tabs clopidogrel 75 mg tablet (Plavix) 75 mg PO DAILY 08/23/23 10/01/23 History naproxen 250 mg tablet 250 mg PO BID PRN pain 08/23/23 10/01/23 History Allergies Allergy/AdvReac Type Severity Reaction Status Date / Time cephalexin [From Keflex] Allergy Unknown Verified 10/01/23 09:46 Exam Constitutional Documenting provider has reviewed patient's vital signs: yes Common normals: no apparent distress, oriented x3, healthy appearing, alert and well nourished General appearance: cooperative HENMT Common normals: normocephalic, hearing grossly normal bilaterally and moist oral mucous membranes Head and scalp: normocephalic Eye Common normals: PERRL Pupil: PERRL Neck & C-Spine Common normals: full ROM General: normal visual inspection Cervical spine: cervical ROM normal and pain with cervical ROM Other: negative spurlings, negative radiculopathy facet pain at bilateral C4-5 C5-6 left greater than right Chest Common normals: inspection of chest normal Respiratory Common normals: normal respiratory effort, no retractions and no use of accessory muscles Extremity Left upper extremity: shoulder joint Other: good ROM, empty can test negative, scratch test negative, no pain with cross adduction. significant weakness in LUE. cannot keep arms extended with forced downward pressure Neuro Common normals: oriented x3, CN's II-XII intact bilaterally, moves all extremities, no focal motor deficits, no sensory deficits noted and deep tendon reflexes 2+ bilaterally Sensorium/orientation: alert Motor exam: strength 5/5 throughout and no movement abnormalities noted Psych Common normals: mental status grossly normal, thought process normal, cooperative, affect normal, speech normal and activity/motor behavior normal Speech: normal speech Thought process: normal thought process Results Additional Findings Additional findings: If on a controlled substance or opioids, I have checked an [place] report on this patient and there are no aberrancies noted in the prescribing history.??If on a controlled substance or opioid a drug screen was completed and reviewed within the last year, and if there has not been a drug screen completed we ordered one today to monitor higher risk, state monitored pain medication use. As part of providing excellent, safe, comprehensive care, the following was completed at our patient's visit: 1. A medication reconciliation and review to ensure accurate knowledge of current/active medications, including asking our patients to inform us about any [id number] medications or herbal remedies/nutritional supplements/alternative remedies. 2. A review to specifically ensure our patients have had annual screening for screening for depression, screening for tobacco use, and screening for unhealthy alcohol use. For concerning screenings had a discussion with the patient, provided patient education, and recommended follow-up with primary care provider when appropriate. If patient noted with a risk of falling, they received education on strength, gait, and balance training to prevent future risk of falling. Assessment and Plan Assessment and Plan (1) Cervical spondylosis: Assessment and Plan: The patient has had over 3 months of moderate to severe neck pain with functional impairment and inadequate response to conservative care including NSAIDS (unless there are contraindication such as concurrent blood thinners), multiple oral or topical pain medications, and home exercise program/physical therapy.? Patient has completed >6 weeks of guided home exercise program and/or formal physical therapy program without relief of their symptoms.? I have reviewed the imaging of the cervical spine and no red flags were identified.? The Oswestry Disability Index was completed, and the patient scored a 18%.? The patient noted the following:?? moderate to severe pain, pain impacting sleep, pain with ADLs, pain with social life and travel We discussed the risks and benefits of the procedure with the patient, and we are NOT planning on using sedation as outlined in the guidelines from Medicare unless there is a documented reason that sedation would be strongly recommended.?? The procedure will be completed with fluoroscopic guidance. 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 left suprascapular and axillary nerve block providing greater than 90% ongoing improvement continue norco 5-325 daily prn moderate to severe pain, finds functional improvement without side effects continue zanaflex 4mg HS PRN defer NS referral for evaluation per pt request, continue f/u with neurology for brain stem lesion f/u after facet block
== END 2023-10-10 09:09 | disposition home or self-care (01) ==
PROVIDERS: PCP Family Medicine; Visit Provider Nurse Practitioner
DX: M47.812 Spondylosis without myelopathy or radiculopathy, cervical region (principal); M25.512 Pain in left shoulder; G58.8 Other specified mononeuropathies; M54.12 Radiculopathy, cervical region; M48.02 Spinal stenosis, cervical region; M79.18 Myalgia, other site
CPT/HCPCS: G0463

== ENCOUNTER 2023-10-22 07:50 | Day surgery (SDC) | payer OTHER, SELFPAY ==
[2023-10-22 07:55] VITALS: BP 130/75; PULSE 73; TEMP 36.2; O2SAT 99
[2023-10-22 08:46] VITALS: BP 133/75; PULSE 67; O2SAT 97
[2023-10-22 08:48] VITALS: PULSE 67; O2SAT 98
[2023-10-22] MEDS: BUPIVACAINE HCL 0.25% PF 25 MG/10 ML VIAL 8 ML INJ (08:48)
[2023-10-22] MEDS: LIDOCAINE HCL 2% 400 MG/20 ML MDV INJ (08:49)
[2023-10-22 08:50] VITALS: BP 122/71
--- NOTE | 2023-10-22 08:51 | W.PM.PROCNOT ---
Date of procedure: 10/22/23 Pre-op diagnosis: Cervical spondylosis Post-op diagnosis: same as pre-op Procedure: Procedure: Bilateral C4-5, 5-6 medial branch block Medications: Bupivacaine 0.25% 6cc The patient was seen and examined in the preoperative holding area.? The informed consent was obtained and placed on the chart.? The patient was brought to the medical procedure unit and placed in the prone position.? A timeout was completed verifying correct patient, procedure site, positioning, plan, and special equipment.? Using aseptic technique, the needle was placed at left C4.? Under direct fluoroscopic visualization, a Quincke tip needle was advanced to the midpoint of the waist of the articular pillar at the respective medial branch segment. The above-mentioned injectate was placed in a 1 mL aliquot proceeded by negative aspiration.? The needle was removed.? The procedure was completed at all left C5, 6. The same procedure, at the same levels, was then completed on the right side. Insertion site was covered.? Patient was taken to the postprocedural recovery area and monitored for an appropriate length of time before found suitable for discharge in the accompaniment of a responsible adult. Anesthesia: Local Surgeon: Sarina Ramsey Pathology: none sent Condition: stable Disposition: no change
== END 2023-10-22 08:54 | disposition home or self-care (01) ==
PROVIDERS: PCP Family Medicine; Visit Provider Anesthesiology
DX: M47.812 Spondylosis without myelopathy or radiculopathy, cervical region (principal)
CPT/HCPCS: 64490; 64491

== ENCOUNTER 2023-10-31 09:11 | Outpatient (OUT) | payer OTHER, SELFPAY ==
--- OUTSIDE RECORDS SUMMARY | 2023-10-31 09:34 | XMS_ITS | CCD ---
Author Organization [facility] Care Team Providers Care Cardroom Manager Name Role Phone Griselda Krause Primary Care Provider Griselda Krause Attending Provider [phone] Griselda Krause Unavailable Unavailable Unavailable Griselda Krause [...] Attending Provider BAILEY Thomason Attending Provider DO Grsielda Krause Primary Care Provider MD Elvi Cadena Attending Provider Trish Carney Unavailable Griselda Krause Primary Care Provider Griselda Krause Unavailable Tammi NORRIS, lEvi Riuz Unavailable DEMOND CAT Attending Unavailable DEMOND CAT Admitting Unavailable GRISELDA KRAUSE Primary Care Unavailable Kuns, DO Camara Primary Care Provider [phone] Darling, DO Camara Attending Provider MD Lima Joseph Attending Provider Dr. BRET HDEZ Attending Unavailable PCP, OTHER Primary Care Unavailable PCP, Other Primary Care Physician [phone] Dr. Griselda Krause Primary Care Unavailabl e Darling, DO Griselda Primary Care Provider BAILEY Gaytan Emergency Provider [phone] DO Rohit Agrawal Emergency Provider Darling, DO Camara Attending Provider Lilliam Cason Unavailable Darling, DO Camara Primary Care Provider BAILEY Gaytan Emergency Provider DO Rohit saavedra Emergency Provider Darling, DO Camara Attending Provider MD Lilliam Cason Attending Provider Ruddy Harvey Unavailable BAILEY Thomason Attending Provider MD Ruddy Harvey Attending Provider Darling, DO Camara Primary Care Provider Kuns Griselda JOSÉ R Primary Care Provider Kuns, DO Griselda Primary Care Provider [phone] ADDIS KHAN Attending Unavailable ADDIS KHAN Referring Unavailable GRISELDA KRAUSE R Primary Care Unavailable ADDIS KHAN Attending Unavailable ADDIS KHAN Referring Unavailable KUNS, GRISELDA R Primary Care Unavailable Kuns, DO Griselda Primary Care Provider MD Ruddy Harvey Attending Provider Kuns DO, Griselda R Primary Care Provider [phone] Kuns DO, Griselda R Primary Care Provider Ignacia Jack MD Unavailable [phone] Kuns, DO Griselda Attending Provider [phone] Kuns, Griselda Attending Unavailable Kuns, Griselda Admitting Unavailable Kuns, Griselda Primary Care Unavailable Kuns, Griselda Primary Care Unavailable Ruddy Harvey T Admitting Unavailabl e Ruddy Harvey Attending Unavailabl e Kuns, Griselda Primary Care Unavailable Rohit Agrawal Admitting Unavailable Rohit Agrawal Attending Unavailable Daniel Gaytan Attending Unavailable Kuns, Griselda Primary Care Unavailable Daniel Gaytan Admitting Unavailable Kuns, Griselda Attending Unavailable Kuns, Griselda Admitting Unavailable Kuns, Griselda Primary Care Unavailable Lima Joseph Admitting Unavailable EspLima mcginnis Attending Unavailable Kuns, Griselda Primary Care Unavailable Kuns, Griselda Primary Care Unavailable Kuns, Griselda Attending Unavailable Kuns, Griselda Admitting Unavailable Lilliam Cason Admitting Unavailable Lilliam Cason Attending Unavailable Kuns, Griselda Primary Care Unavailable Nikole Thomason Admitting Unavailab le Nikole Thomason Attending Unavailab le Kuns, Griselda Primary Care Unavailable Kuns, Griselda Primary Care Unavailable Ruddy Harvey Admitting Unavailabl e Ruddy Harvey Attending Unavailabl e Kuns, Griselda Primary Care Unavailable LangenbergRuddy T Admitting Unavailabl e Ruddy Harvey Attending Unavailabl e NIKOLE THOMASON Attending Unavailab le GRAZNIKOLE LEON Attending Unavailab le NIKOLE THOMASON Referring Unavailab le NIKOLE THOMASON Attending Unavailab le NIKOLE THOMASON Attending Unavailab le NIKOLE THOMASON Attending Unavailab JEREMY Echevarria Attending Unavailable NIKOLE THOMASON Attending Unavailab le ANTONIOONIS, JEREMY R Referring Unavailable JOSE MARRUFO Attending Unavailable ELVI CADENA Attending Unavailable ELVI CADENA Referring Unavailable NIKOLE THOMASON Attending Unavailab LIBBY Rice Referring Unavailable GRISELDA KRAUSE Primary Care Unavailable IGNACIA JACK Attending Unavailable GRISELDA KRAUSE Primary Care Unavailable Giedraitis , Andrius Vytautscott Attending Unavailable Giedraitis , Andrius Vytautas Attending Unavailable Giedraitis MD, Andrius Vytautas Attending Unavailable Giedraitis , Andrius Vytautas Attending Unavailable Giedraitis , Andrius Vytautas Attending Unavailable Giedraitis , Andrius Vytautas Attending Unavailable ABHYANKAR, MEMO Referring Unavailable GRISELDA KRAUSE Primary Care Unavailable ABHYANKAR, MEMO Referring Unavailable ABHYANKAR, MEMO Attending Unavailable GRISELDA KRAUSE Primary Care Unavailable Unavailable Unavailable Unavailable Allergies Allergy Classification Reported Allergen(s) Allergy Type Date of Onset Reaction(s) Facility Cephalosporins (antibiotic) (1 source) Cephalexin Drug Allergy 8 [facility] (20 sources) Cephalexin; Translations: [CEPHALEXIN] Drug Allergy 8 [facility] (20 sources) Cephalexin; Translations: [Keflex] Drug Allergy [facility] Other (1 source) Cephalexin; Translations: [Keflex] Drug Allergy [facility] (2 sources) Keflet; Translations: [KEFLET] Propensity to adverse reactions [address] [facility] (1 source) ALLERGIES NOT ON FILE; Translations: [ALLERGIES NOT ON FILE] Propensity to adverse reactions (disorder) [facility] Rep[facility] NEGATED: Highlighted row has been ruled out! (1 source) natural latex rubber; Translations: [LATEX, NATURAL RUBBER] Drug allergy (disorder) [facility] [place] NEGATED: Highlighted row has been ruled out! (1 source) No IV Contrast Allergy.; Translations: [IV Dye, Iodine Containing] Drug allergy (disorder) [facility] [place] Medications Current Medications Medication Drug Class(es) Dates Sig (Normalized) Sig (Original) acetaminophen 325 mg / HYDROcodone bitartrate 5 mg oral tablet (20 sources) Opioid Agonist Start: 09-05-2023 take 1 tablet by mouth every eight hours Hydrocodone-Aceta minophen Active TAB PO Every 8 hours September 05, 2023 12:00am Start: 12-10-2017 End: 04-29-2018 take 1 tablet by mouth every four hours Hydrocodone-Acetaminophen ([place]) 5-325 mg tablet Discontinued 1 TAB PO Q4H December 10, 2017 April 29, 2018 3:12pm amLODIPine 10 mg oral tablet (20 sources) Dihydropyridine Calcium Channel Clara Start: 09-05-2023 take 10 mg by mouth once daily Amlodipine Active 10 MG PO Daily September 05, 2023 12:00am Start: 03-15-2023 End: 09-05-2023 take 1 tablet by mouth once daily Amlodipine Discontinued 5 MG PO Daily August 02, 2023 1:00am September 05, 2023 2:21pm FreeTextSi tablet Orally Once a day; Note: Source Status: Continue; Provider: Darling Driver aspirin 81 mg delayed release oral [...] 90 days 2 each 3 07/20/2023 Active clopidogrel 75 mg oral tablet (20 sources) [id number] Platelet Inhibitor Start: 05-07-2023 End: 08-02-2023 take 1 tablet by mouth once daily Clopidogrel (Plavix) 75 mg tablet Active 75 MG PO Daily August 02, 2023 1:00am FreeTextSi tablet Orally Once a day; Note: Source Status: Taking; Provider: Darling Camara ( ) dexamethasone 2 mg oral tablet (2 sources) Corticosteroid Start: 06-14-2023 dexAMETHasone (Decadron) 2 MG tablet Indications: Cervical radiculopathy , Cervical stenosis of spinal canal , Occipital neuralgia of left side 2mg 3 pills po X3 days,2 pills po daily X3 days , then 1 pill po daily X3 days then stop 9 days 18 pills 18 tablet 0 06/14/2023 Active ezetimibe 10 mg oral tablet (19 sources) Dietary Cholesterol Absorption Inhibitor Start: 10-29-2023 take 10 mg by mouth once daily Ezetimibe Active 10 MG PO Daily October 29, 2023 12:00am Start: 09-05-2023 End: 09-05-2023 Ezetimibe Discontinued MG PO September 05, 2023 [...] a day for 90 days Apr, Active 1 ml galcanezumab-gnlm 120 mg/ml auto-injector (7 sources) Emgality 120 MG/ ML as directed Subcutaneous Active hydrOXYzine hydrochloride 25 mg oral tablet (20 sources) Antihistamine Start: take 1-2 tablets by mouth once daily at bedtime Hydroxyzine Hcl Active MG PO Daily at bedtime September 05, 2023 1:34pm FreeTextSi-2 tablets Orally HS as needed; Note: Source Status: Taking; Provider: Darling Driver Start: 08-02-2023 End: 09-05-2023 take 1-2 tablets by mouth at bedtime as needed Hydroxyzine Hcl Discontinued MG PO August 02, 2023 1:00am September 05, 2023 1:37pm FreeTextSi-2 tablets Orally HS as needed; Note: Source Status: Taking; Provider: Darling Driver Start: 05-26-2022 End: 08-02-2023 take 25 [...] a day; Note: Source Status: TakingPRN; Provider: Darling Camara ( ) Start: 04-17-2022 End: 07-17-2022 [...] the MR contrast administration guidelines link lisinopril 10 mg oral tablet (6 sources) Angiotensin Converting Enzyme Inhibitor Start: take 10 mg by mouth once daily Lisinopril Active 10 MG PO Daily 90 90 October 18, 2023 12:00am Start: 09-05-2023 End: 10-18-2023 take 5 mg by mouth once daily Lisinopril Discontinued 5 MG PO Daily 30 September 05, 2023 12:00am October 18, 2023 9:30am mirtazapine 15 mg oral tablet (20 sources) Start: 08-02-2023 End: 10-29-2023 take 15 mg by mouth once daily at bedtime Mirtazapine Active 15 MG PO Daily at bedtime October 29, 2023 10:18am Start: 09-01-2022 take 0.5 tablet by m [...] a day Active Multivitamin (Multiple Vitamins) tablet (6 sources) Start: take 1 tablet by mouth once daily Multivitamin (Multiple Vitamins) tablet Active 1 TAB PO Daily August 02, 2023 1:00am Start: 08-02-2023 take 1 tablet by myles th once daily Multivitamin (Multiple Vitamins) tablet Active 1 TAB PO Daily August 02, 2023 12:00am pravastatin sodium 40 mg oral tablet (4 sources) HMG-CoA Reductase Inhibitor Start: 10-29-2023 take 40 mg by mouth once daily Pravastatin Active 40 MG PO Daily October 29, 2023 12:00am Start: 05-15-2023 take 1 tablet by myles th every twenty-four hours Pravastatin Sodium 40 MG [...] Start: 01-30-2023 take 1 capsule by mo uth twice daily tiZANidine (Zanaflex) 4 MG capsule [...] Ordered: 01-Nov-2021 DO Start : 01-Nov-2021 Active take 1 capsule by mo uth once daily at bedtime tiZANidine (Zanaflex) 4 mg capsule Take 1 capsule (4 mg) by mouth once daily at bedtime. Active Comment on above: Take 4 mg [...] / codeine phosphate 30 mg oral tablet (8 sources) Opioid Agonist Start: 05-07-2023 End: 08-02-2023 [...] AFTERNOON and 2 at bedtime as directed [id number] 200 actuat albuterol 0.09 mg/actuat metered dose inhaler (9 sources) beta2-Adrenergic Agonist Start: 4 End: 4 take 1 puff(s) by inhalation every four hours as needed Albuterol Sulfate Discontinued 1 PUFF INHALATION Every 4 hours August 02, 2023 1:00am August 02, 2023 1:45pm FreeTextSi puff as needed Inhalation every 4 hrs; Note: Source Status: Start; Refills: 1; Provider: Darling Driver Start: 07-02-2023 take 2 puff(s) by [...] mg / clavulanate 125 mg oral tablet (13 sources) Penicillin-class Antibacterial Start: 02-27-20 End: 05-07-20 [...] Azole Antifungal, Corticosteroid Start: 03-08-20 End: 08-02-19 Clotrimazole-Betameth asone Discontinued 1 APPLIC TOPICAL Twice daily August 02, 2023 1:00am August 02, 2023 1:47pm FreeTextSi application Externally Twice a day; Note: Source Status: Not-Taking\PRN; Refills: 1; Qty: 45 grams; Provider: Darling Driver brexpiprazole 1 mg oral tablet (15 sources) Atypical Antipsychotic Start: 08-02-19 End: 10-18-19 take 0.5 mg by mouth once daily Brexpiprazole Discontinued 0.5 MG PO Daily August 02, 2023 2:09pm October 18, 2023 8:55am Start: 08-02-2023 End: 08-02-2023 take 1 tablet by mouth once daily Brexpiprazole Discontinued 1 MG PO Daily August 02, 2023 1:00am August 02, 2023 2:10pm FreeTextSi tablet Orally Once a day; Note: Source Status: Continuesamples provided; Provider: Darling Driver Start: 05-31-2023 take 1 tablet by myles th every twenty-four hours Rexulti 1 MG 1 tablet Orally Once a day samples provided May, Active Start: 05-31-2023 take 1 tablet by myles th every twenty-four hours Rexulti 0.5 MG 1 tablet Orally Once a day for 7 days samples provided May, Active 12 hr buPROPion hydrochloride 150 mg extended release oral tablet (9 sources) Aminoketone Start: 02-28-2019 take 1 tablet by mouth twice daily buPROPion SR (WELLBUTRIN SR) 150 mg 12 hr tablet Take 1 tablet by mouth twice daily. 60 tablet 2 02/28/2019 Active Comment on above: Take 1 tablet by myles th twice daily. citalopram 20 mg oral tablet (20 sources) Serotonin Reuptake Inhibitor Start: 12-26-2021 End: 08-02-2023 take 20 mg by mouth once daily Citalopram Discontinued 20 MG PO Daily April 06, 2022 12:00am August 02, 2023 1:46pm Start: 10-22-2018 [facility] citalopram (CELEXA) 40 mg tablet Take 40 mg by mouth once daily. 0 10/22/2018 Active Start: 12-10-2017 End: 04-29-2018 take 20 mg by mouth once daily Citalopram Discontinued 20 MG PO Daily December 10, 2017 12:00am April 29, 2018 3:12pm Comment on above: Take 40 mg by mouth once daily. cyclobenzaprine hydrochloride 10 mg oral tablet (12 sources) Muscle Relaxant Start: End: take 10 mg by mouth three times daily Cyclobenzaprine Discontinued 10 MG PO Three times daily March 21, 2023 12:00am May 07, 2023 9:22am doxycycline monohydrate 100 mg oral capsule (9 sources) Tetracycline-class Drug Start: 019 take 1 capsule by mouth every twelve hours doxycycline monohydrate (MONODOX) 100 mg capsule TAKE 1 CAPSULE BY MOUTH EVERY 12 HOURS FOR 10 DAYS 0 11/05/2018 Active Comment on above: TAKE 1 CAPSULE BY [facility] EVERY 12 HOURS FOR 10 DAYS DULoxetine 20 mg delayed release oral capsule (4 sources) Serotonin and Norepinephrine Reuptake Inhibitor take 1 capsule by mouth every twelve hours Cymbalta 20 MG 1 capsule Orally Twice a day Not-Taking gabapentin 100 mg oral capsule (20 sources) Anti-epileptic Agent Start: 024 End: take 1 capsule by mouth once daily Gabapentin Discontinued 100 MG PO Daily August 02, 2023 1:00am August 02, 2023 1:47pm FreeTextSi capsule Orally Once a day; Note: Source Status: Not-Taking\PRN; Provider: Darling Camara ( ) Start: 04-16-2023 End: 08-02-2023 take 300 mg by mouth three times daily Gabapentin Discontinued 300 MG PO Three times daily May 07, 2023 1:00am August 02, 2023 1:47pm Start: 02-27-2019 take 1 capsule by [facility] three times daily gabapentin (NEURONTIN) 300 [...] a day; Note: Source Status: Not-Taking\PRNprn; Provider: Darling Camara ( ) Start: 07-17-2022 End: 08-02-2023 take 25 mg by mouth once daily Indomethacin Discontinu ed 25 MG PO Daily July 17, 2022 1:00am August 02, 2023 1:48pm take 1 capsule by [facility] once daily at mealtime indomethacin SR (Indocin SR) 75 MG ER capsule indomethacin ER 75 mg capsule,extended release take 1 capsule by mouth once daily with food 0 Active take 1 capsule by [facility] every twenty-four hours Indomethacin ER 75 [...] 2018 1:00am April 06, 2022 4:26pm Methylprednisolone (20 sources) Corticosteroid Start: 08-02-2023 End: 08-02-2023 Methylprednisolone Discontinued MG PO As Directed August 02, 2023 1:00am August 02, 2023 1:48pm FreeTextSig: as directed Orally as directed; Note: Source Status: Start1 pack; Refills: 0; Provider: Darling Driver Start: 08-02-2023 End: 02-15-2024 Methylprednisolone Discontin ued MG PO As Directed August 02, 2023 12:00am August 02, 2023 12:48pm FreeTextSig: as directed Orally as directed; Note: Source Status: Start1 pack; Refills: 0; Provider: Darling Driver Start: 07-02-2023 methylPREDNISo lone 4 MG [...] a day; Note: Source Status: Taking; Provider: Darling Camara ( ) Comment on above: Take 10 mg by mouth daily at bedtime. Multivitamin capsule (9 sources) take 1 capsule by mouth once daily Multivitamin capsule Take 1 capsule by mouth once daily. 0 Active Comment on above: Take 1 capsule by [facility] once daily. naproxen 500 mg oral tablet (20 sources) Nonsteroidal Anti-inflammatory Drug Start: 12-10-2017 End: 04-29-2018 take 500 mg by mouth twice daily at mealtime Naproxen Discontinued 500 MG PO Twice daily December 10, 2017 12:00am April 29, 2018 3:12pm administer with food or milk olmesartan medoxomil 20 mg oral tablet (8 sources) Angiotensin 2 Receptor Clara Start: 05-07-2023 [...] Active rosuvastatin calcium 5 mg oral tablet (10 sources) HMG-CoA Reductase Inhibitor Start: 08-02-2023 End: 08-02-2023 take 1 tablet by mouth every week Rosuvastatin Discontinued 5 MG PO August 02, 2023 1:00am August 02, 2023 2:10pm FreeTextSi tablet Orally 2 days per week; Note: Source Status: Not-Taking\PRN; Refills: 1; Provider: Darling Driver Start: 05-31-2023 take 1 tablet by [...] 10-13-2021 Chronic Cancer of head and neck (20 sources) History of malignant neoplasm of head [...] and other heart disease; Translations: [Atherosclerosis of [place] arteries of extremities with intermittent claudication, right leg] Onset: 05-07-2023 Disorders of lipid metabolism (20 sources) Hyperlipidemia; Translations: [Hyperlipidemia, unspecified] Onset: 09-19-2021 Resolved: 09-19-2021 Chronic Essential hypertension (16 sources) Essential hypertension; Translations: [Essential (primary) hypertension] [...] [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 Other circulatory disease (1 source) Presence [...] lung; Translations: [Solitary pulmonary nodule] Episodic Other lower respiratory disease (2 sources) Productive cough ; Translations: [Productive cough] 10-08-2023 Episodic Other nervous system disorders (3 sources) Demyelinating disease of central nervous system; Translations: [Other demyelinating diseases of central nervous system] Chronic Other nervous system disorders (20 sources) Mass lesion of brain; Translations: [Other specified disorders of brain] 08-02-2023 Chronic Other nervous system disorders (7 sources) Disorder of brain, unspecified; Translations: [Disorder of brain, unspecified] Onset: 10-24-2021 Resolved: 01-30-2022 Chronic Other nervous [...] 12-29-2022 12-29-2022 Chronic Other nervous system disorders (1 source) Lesion of brainstem; Translations: [Disorder of brain, unspecified] 10-05-2023 Chronic Other nervous system disorders (1 source) Other specified disorders of brain; Translations: [Other conditions of brain] 10-29-2023 Chronic Other nervous system disorders (6 sources) Finding of sensation of upper limb; Translations: [Paresthesia of skin] Episodic Other nervous system disorders (20 sources) Paresthesia of left lower limb; Translations: [Paresthesia of skin] 08-02-2023 Episodic Other nervous system disorders (2 sources) Anesthesia of skin Onset: 01-30-2022 Resolved: 01-30-2022 Episodic Other nervous system disorders (19 sources) Burning sensation; Translations: [Other disturbances of skin sensation] 08-02-2023 Episodic Other nervous system disorders (1 source) Other disturbances of skin sensation Episodic Other nervous system disorders (19 sources) Impairment of balance; Translations: [Other abnormalities of gait and mobility] Onset: 12-10-2022 12-10-2022 Episodic Other nervous system disorders (6 sources) Other abnormalities of gait and mobility; [...] and lump, neck] Episodic Other skin disorders (20 sources) Vesicular eczema; 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]] 08-02-2023 [...] Resolved: 06-30-2021 Chronic Other upper respiratory infections (4 sources) Acute pharyngitis, unspecified; Translations: [Acute sinusitis] Onset: 10-09-2023 Episodic Otitis media and related conditions (13 sources) Acute transudative otitis media; Translations: [Other [...] ischemic attack, unspecified] Chronic Unclassified (1 source) Other specified cough; Translations: [Other specified cough] Onset: 10-09-2023 Unclassified (1 source) Otalgia, left ear; Translations: [...] of lung field] Onset: 10-13-2021 Episodic Other nervous system disorders [...] R05.9 Unclassified (1 source) Acute cough R05.1 Unclassified (1 source) Onset: 10-05-2023 10-05-2023 Results Test Name Value Interpretation Reference Range Facility Basophils Auto (Bld) [#/Vol] on 10-26-2023 Basophils (Bld) [#/Vol] 0.04 10*3/uL <0.11 [facility] Basophils/100 WBC Auto (Bld) on 10-26-2023 Basophils/100 WBC (Bld) 0.5 % [facility] Blood manual differential co mment interpretation narrativeon 10-26-2023 Manual differential comment Curtis (Bld) [Interp] Auto [facility] CBC W Auto Differential pane l (Bld)on 10-26-2023 Basophils (Bld) [#/Vol] 0.04 10*3/uL Normal <0.11 [facility] Comment on above: Order Comment: Speci men Type: BLOOD SPECIMEN Ordering Facility: [facility] Address: [address] [place] [address] Performed By: #### 5 7021-8 #### [facility] CLIA [id number] [address] [place] [address]68[address] Basophils/100 WBC (Bld) 0.5 % Normal [facility] Comment on above: Order Comment: Speci men Type: BLOOD SPECIMEN Ordering Facility: [facility] Address: [address] [place] [address] Performed By: #### 5 7021-8 #### [facility] CLIA [id number] [address] [place] [address] 35070 Differential cell count method Nom (Bld) Auto Normal [facility] Comment on above: Order Comment: Speci men Type: BLOOD SPECIMEN Ordering Facility: [facility] Address: [address] [place] [address] Performed By: #### 5 7021-8 #### [facility] CLIA [id number] [address] [place] [address] 31064 Eosinophils (Bld) [#/Vol] 0.13 10*3/uL Normal <0.46 [facility] Comment on above: Order Comment: Speci men Type: BLOOD SPECIMEN Ordering Facility: [facility] Address: [address] [place] [address] Performed By: #### 5 7021-8 #### [facility] CLIA [id number] [address] [place] [address] Eosinophils/100 WBC (Bld) 1.5 % Normal [facility] Comment on above: Order Comment: Speci men Type: BLOOD SPECIMEN Ordering Facility: [facility] Address: [address] [place] [address] Performed By: #### 5 7021-8 #### [facility] CLIA [id number] [address] [place] [address] 36650 Erythrocyte distribution width (RBC) [Ratio] 13.8 % Normal 11.5-15.0 [facility] Comment on above: Order Comment: Speci men Type: BLOOD SPECIMEN Ordering Facility: [facility] Address: [address] [place] [address] Performed By: #### 5 7021-8 #### [facility] CLIA [id number] [address] [place] [address] 28441 Hematocrit (Bld) [Volume fraction] 42.6 % Normal 39.0-51.0 [facility] Comment on above: Order Comment: Speci men Type: BLOOD SPECIMEN Ordering Facility: [facility] Address: [address] [place] [address] Performed By: #### 5 7021-8 #### [facility] CLIA [id number] [address] [place] [address] 30019 Hemoglobin (Bld) [Mass/Vol] 14.4 g/dL Normal 13.0-17.0 [facility] Comment on above: Order Comment: Speci men Type: BLOOD SPECIMEN Ordering Facility: [facility] Address: [address] [place] [address] Performed By: #### 5 7021-8 #### [facility] CLIA [id number] [address] [place] [address] 19293 Immature granulocytes (Bld) [#/Vol] 0.03 10*3/uL Normal <0.10 [facility] Comment on above: Order Comment: Speci men Type: BLOOD SPECIMEN Ordering Facility: [facility] Address: [address] [place] [address] Performed By: #### 5 7021-8 #### [facility] CLIA [id number] [address] [place] [address] 28122 Immature granulocytes/100 WBC (Bld) 0.3 % Normal [facility] Comment on above: Order Comment: Speci men Type: BLOOD SPECIMEN Ordering Facility: [facility] Address: [address] [place] [address] Performed By: #### 5 7021-8 #### [facility] CLIA [id number] [address] [place] [address] 93503 Lymphocytes (Bld) [#/Vol] 2.18 10*3/uL Normal 1.00-4.00 [facility] Comment on above: Order Comment: Speci men Type: BLOOD SPECIMEN Ordering Facility: [facility] Address: [address] [place] [address] Performed By: #### 5 7021-8 #### [facility] CLIA [id number] [address] [place] [address] 95597 Lymphocytes/100 WBC (Bld) 24.8 % Normal [facility] Comment on above: Order Comment: Speci men Type: BLOOD SPECIMEN Ordering Facility: [facility] Address: [address] [place] [address] Performed By: #### 5 7021-8 #### [facility] CLIA [id number] [address] [place] [address] 30583 MCH (RBC) [Entitic mass] 32.0 pg Normal 26.0-34.0 [facility] Comment on above: Order Comment: Speci men Type: BLOOD SPECIMEN Ordering Facility: [facility] Address: [address] [place] [address] Performed By: #### 5 7021-8 #### [facility] CLIA [id number] [address] [place] [address] 68111 MCHC (RBC) [Mass/Vol] 33.8 g/dL Normal 30.5-36.0 [facility] Comment on above: Order Comment: Speci men Type: BLOOD SPECIMEN Ordering Facility: [facility] Address: [address] [place] [address] Performed By: #### 5 7021-8 #### [facility] CLIA [id number] [address] [place] [address] 11818 MCV (RBC) [Entitic vol] 94.7 fL Normal 80.0-100.0 [facility] Comment on above: Order Comment: Speci men Type: BLOOD SPECIMEN Ordering Facility: [facility] Address: [address] [place] [address] Performed By: #### 5 7021-8 #### [facility] CLIA [id number] [address] [place] [address] 87167 Monocytes (Bld) [#/Vol] 0.60 10*3/uL Normal <0.87 [facility] Comment on above: Order Comment: Speci men Type: BLOOD SPECIMEN Ordering Facility: [facility] Address: [address] [place] [address] Performed By: #### 5 7021-8 #### [facility] CLIA [id number] [address] [place] [address] 43865 Monocytes/100 WBC (Bld) 6.8 % Normal [facility] Comment on above: Order Comment: Speci men Type: BLOOD SPECIMEN Ordering Facility: [facility] Address: [address] [place] [address] Performed By: #### 5 7021-8 #### [facility] CLIA [id number] [address] [place] [address] 74960 Neutrophils (Bld) [#/Vol] 5.80 10*3/uL Normal 1.45-7.50 [facility] Comment on above: Order Comment: Speci men Type: BLOOD SPECIMEN Ordering Facility: [facility] Address: [address] [place] [address] Performed By: #### 5 7021-8 #### [facility] CLIA [id number] [address] [place] [address] Neutrophils/100 WBC (Bld) 66.1 % Normal [facility] Comment on above: Order Comment: Speci men Type: BLOOD SPECIMEN Ordering Facility: [facility] Address: [address] [place] [address] Performed By: #### 5 7021-8 #### [facility] CLIA [id number] [address] [place] [address] Nucleated RBC (Bld) [#/Vol] 10*3/uL Normal <0.01 [facility] Comment on above: Order Comment: Speci men Type: BLOOD SPECIMEN Ordering Facility: [facility] Address: [address] [place] [address] Performed By: #### 5 7021-8 #### [facility] CLIA [id number] [address] [place] [address]4059 Nucleated RBC/100 WBC (Bld) [Ratio] 0.0 /100 WBC Normal [facility] Comment on above: Order Comment: Speci men Type: BLOOD SPECIMEN Ordering Facility: [facility] Address: [address] [place] [address] Performed By: #### 5 7021-8 #### [facility] CLIA [id number] [address] [place] [address] 78293 Platelet mean volume (Bld) [Entitic vol] 10.2 fL Normal 9.0-12.7 [facility] Comment on above: Order Comment: Speci men Type: BLOOD SPECIMEN Ordering Facility: [facility] Address: [address] [place] [address] Performed By: #### 5 7021-8 #### [facility] CLIA [id number] [address] [place] [address] Platelets (Bld) [#/Vol] 314 10*3/uL Normal 150-400 [facility] Comment on above: Order Comment: Speci men Type: BLOOD SPECIMEN Ordering Facility: [facility] Address: [address] [place] [address] Performed By: #### 5 7021-8 #### [facility] CLIA [id number] [address] [place] [address] 55625 RBC (Bld) [#/Vol] 4.50 10*6/uL Normal 4.20-6.00 [facility] Comment on above: Order Comment: Speci men Type: BLOOD SPECIMEN Ordering Facility: [facility] Address: [address] [place] [address] Performed By: #### 5 7021-8 #### [facility] CLIA [id number] [address] [place] [address] WBC (Bld) [#/Vol] 8.78 10*3/uL Normal 3.70-11.00 [facility] Comment on above: Order Comment: Speci men Type: BLOOD SPECIMEN Ordering Facility: [facility] Address: [address] [place] [address] Performed By: #### 5 7021-8 #### 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 MQ: [id number]_6 Contrast: 100 mL Omnipaque [address] Radiation dose: Integrated Dose-length product (DLP) for this visit = 812 mGy*cm CT Dose Reduction Employed: Automated exposure control (AEC) Comparison: 10/27/2022 and 04/08/2020 RESULT: Limitations: None. Lines, tubes, and devices: None. Lung parenchyma and airways: New streaky scarring/discoid atelectasis is noted in the bilateral lower lung mcgrath. Mild reticular nodular opacities in the left upper lobe (4:66), stable. Subcentimeter nodular opacities measuring less than 5 mm, stable since 04/08/20. For example: Right upper lobe (4:60) Left upper lobe (4:37) The central airways are patent. Pleural space: No pleural effusion. No pleural thickening. Lower neck, lymph nodes, and mediastinum: The imaged thyroid gland is normal. No lymphadenopathy in the supraclavicular, axillary, mediastinal, or hilar regions. Heart, pericardium, and thoracic vessels: The thoracic aorta and main pulmonary artery are normal in caliber. The cardiac chambers are normal in size. Atherosclerotic coronary artery calcifications are noted. No pericardial effusion or thickening. Bones and soft tissues: No new osseous abnormalities. Upper abdomen: No abnormality in the imaged upper abdomen. Localizer images: No additional findings. IMPRESSION: 1. New streaky scarring/discoid atelectasis in the bilateral lower lung mcgrath. 2. Subcentimeter nodular opacities measuring less than 5 mm, stable since 04/08/20. 3. No evidence of intrathoracic metastases. Transcribe Date/Time: Oct 26 2023 1:36P Dictated by: ANA CHAKRABORTY MD This examination was interpreted and the report reviewed and electronically signed by: ANA CHAKRABORTY MD on Oct 26 2023 2:26PM EST Thank you for allowing us to participate in the care of your patient. Should there be any questions regarding this interpretation, please call [phone]. If you are unable to reach us at the number above, please feel free to contact [facility] at [phone]. 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 Primary squamous cell carcinoma of head and neck. History obtained from the electronic medical record: 61 year old man who underwent selective right neck dissection (II-V) and bilateral base of tongue/lingual tonsillar excision on 01/30/[address] 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 Pathology revealed 1 of 69 lymph nodes (Level II) positive for metastatic HPV+ SCC measuring 4.5 cm without extracapsular extension. 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 Only high-risk feature is the node being greater than 3 cm. He was advised at Tumor Board to undergo Radiation only. 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 PLAN: 1. Scans and labs in 1 year 2. RTC 1 week after Technique: A series of contiguous helical scans were performed from the skull base to the aortic arch following bolus injection of nonionic contrast: Contrast: Omnipaque 300. Contrast Dose: 100 cc Route of Administration: IV CT Radiation dose: Integrated Dose-length product (DLP) for this visit = 812 mGy*cm. CT Dose Reduction Employed: Automated exposure control (AEC) Comparison: 10/27/2022 contrast-enhanced soft tissue neck CT RESULT: Postoperative change: Left pseudophakia. Apart from negligible lingual tonsillar tissue, the prior postoperative changes in the base of tongue and right neck described above are not readily apparent. All dentition extracted. Suprahyoid Neck: Nasopharynx and oropharynx appear normal. Parapharyngeal tissue planes are preserved. Oral cavity and floor of mouth appear normal. Parotid and submandibular spaces are normal. Rn Delivery spaces appear normal. Infrahyoid Neck: Hypopharynx, larynx, and imaged infraglottic trachea appear normal. Imaged upper esophagus is unremarkable. Thyroid gland is homogeneous without evidence of discrete nodule. Lymph Nodes: No cervical adenopathy by size criteria. Scattered normal sized lymph nodes without suspicious morphologic features. Carotid Space: No apparent mass. Atheromatous plaque in the carotid bifurcations and proximal right greater than left cervical ICAs. Patent extracranial carotid systems and internal jugular veins bilaterally. Orbits and Skull Base: Left pseudophakia, although otherwise unremarkable appearance of the orbital soft tissue planes. No suspicious osteolytic or osteoblastic lesions in the skull base. Small volume lobulated secretions in the right maxillary sinus. Otherwise, no substantial paranasal sinus mucosal thickening. Rightward deviation of the nasal septum. The mastoid air cells and middle ear cavities are clear. Imaged intracranial contents: No abnormal intracranial enhancement, mass effect, or hydrocephalus. Atherosclerotic calcifications in the carotid siphons. Cervical spine and remaining osseous structures: Straightening of the cervical lordosis and grade 1 anterolisthesis of C4 on C5. Advanced degenerative disc height loss at C5-C6 and C6-C7 and T1-T2, mild to moderate at the levels intervening C2-C4 and mild at C4-C5 and in the visualized upper thoracic spine otherwise. Scattered small degenerative disc osteophyte complexes without associated high-grade spinal canal stenosis. Suboptimal neuroforaminal assessment, although multilevel uncovertebral and facet hypertrophy appears to contribute to varying degrees of neuroforaminal stenosis which appears most pronounced and moderate to severe on the left at the levels intervening C3-C7. No discrete osteolytic or osteoblastic process. Lung apices: Imaged lung apices are clear of focal consolidation or mass. Porcelain Technician (topogram) images: Noncontributory IMPRESSION: Primary: 1: Expected post-treatment changes in the neck without evidence of recurrent disease in the primary site. Neck: 1: No evidence of abnormal lymph nodes. [email or web address] Transcribe Date/Time: Oct 26 2023 10:15A Dictated by: LIMA LIZ MD This examination was interpreted and the report reviewed and electronically signed by: LIMA LIZ MD on Oct 26 2023 10:35AM EST Thank you for allowing us to participate in the care of your patient. Should there be any questions regardi (more content not included)... Normal [facility] Comprehensive metabolic 2000 panelon 10-26-2023 Albumin [Mass/Vol] 4.3 g/dL Normal 3.9-4.9 [facility] Comment on above: Order Comment: Speci men Type: BLOOD SPECIMEN Ordering Facility: [facility] Address: [address] [place] [address] [place] [address] Performed By: #### 2 4323-8 #### [facility] CLIA [id number] [address] [place] [address] ALP [Catalytic activity/Vol] 75 U/L Normal 38-113 [facility] Comment on above: Order Comment: Speci men Type: BLOOD SPECIMEN Ordering Facility: [facility] Address: [address] [place], [place] [address] Performed By: #### 2 4323-8 #### [facility] CLIA [id number] [address] [place] [address] ALT [Catalytic activity/Vol] 10 U/L Normal 10-54 [facility] Comment on above: Order Comment: Speci men Type: BLOOD SPECIMEN Ordering Facility: [facility] Address: [address] [place] [address] Performed By: #### 2 4323-8 #### [facility] CLIA [id number] [address] [place] [address]10 Anion gap [Moles/Vol] 8 mmol/L Low 9-18 [facility] Comment on above: Order Comment: Speci men Type: BLOOD SPECIMEN Ordering Facility: [facility] Address: [address] [place] [address] Performed By: #### 2 4323-8 #### [facility] CLIA [id number] [address] [place] [address] AST [Catalytic activity/Vol] 9 U/L Low 14-40 [facility] Comment on above: Order Comment: Speci men Type: BLOOD SPECIMEN Ordering Facility: [facility] Address: [address] [place] [address] Performed By: #### 2 4323-8 #### [facility] CLIA [id number] [address] [place] [address] 26934 Bilirubin [Mass/Vol] 0.5 mg/dL Normal 0.2-1.3 [facility] Comment on above: Order Comment: Speci men Type: BLOOD SPECIMEN Ordering Facility: [facility] Address: [address] [place] [address] Performed By: #### 2 4323-8 #### [facility] CLIA [id number] [address] [place] [address] Calcium [Mass/Vol] 9.9 mg/dL Normal 8.5-10.2 [facility] Comment on above: Order Comment: Speci men Type: BLOOD SPECIMEN Ordering Facility: [facility] Address: [address] [place], [place] [address] Performed By: #### 2 4323-8 #### [facility] CLIA [id number] [address] [place] [address] Chloride [Moles/Vol] 106 mmol/L High 97-105 [facility] Comment on above: Order Comment: Speci men Type: BLOOD SPECIMEN Ordering Facility: [facility] Address: [address] [place] [address] Performed By: #### 2 4323-8 #### [facility] CLIA [id number] [address] [place] [address]70 CO2 [Moles/Vol] 27 mmol/L Normal 22-30 [facility] Comment on above: Order Comment: Speci men Type: BLOOD SPECIMEN Ordering Facility: [facility] Address: [address] [place] [address] Performed By: #### 2 4323-8 #### [facility] CLIA [id number] [address] [place] [address] Creatinine [Mass/Vol] 1.01 mg/dL Normal 0.73-1.22 [facility] Comment on above: Order Comment: Speci men Type: BLOOD SPECIMEN Ordering Facility: [facility] Address: [address] [place] [address] Performed By: #### 2 4323-8 #### [facility] CLIA [id number] [address] [place] [address] Creatinine and Glomerular filtration rate.predicted panel (S/P/Bld) 85 mL/min/1.73m??? Normal >=60 [facility] Comment on above: Order Comment: Trevor jordan Type: BLOOD SPECIMEN Ordering Facility: [facility] Address: [address] [place] [address] Result Comment: Charisse mated Glomerular Filtration Rate [...] GFR. Performed By: #### 2 4323-8 #### [facility] CLIA [id number] [address] [place] [address] Glucose [Mass/Vol] 89 mg/dL Normal 74-99 [facility] Comment on above: Order Comment: Trevor jordan Type: BLOOD SPECIMEN Ordering Facility: [facility] Address: [address] [place], [place] [address] Result Comment: The [place] Diabetes Association (ADA) provides guidance for cutoff [...] Standards of Medical Care in Diabetes 2016, [place] [employer]. Diabetes Care. 2016.39(Suppl 1). Performed By: #### 2 4323-8 #### [facility] CLIA [id number] [address] [place] [address] Potassium [Moles/Vol] 4.0 mmol/L Normal 3.7-5.1 [facility] Comment on above: Order Comment: Trevor jordan Type: BLOOD SPECIMEN Ordering Facility: [facility] Address: [address] [place] [address] Performed By: #### 2 4323-8 #### [facility] CLIA [id number] [address] [place] [address] Protein [Mass/Vol] 6.4 g/dL Normal 6.3-8.0 [facility] Comment on above: Order Comment: Speci men Type: BLOOD SPECIMEN Ordering Facility: [facility] Address: [address] [place] [address] Performed By: #### 2 4323-8 #### [facility] CLIA [id number] [address] [place] [address] Sodium [Moles/Vol] 141 mmol/L Normal 136-144 [facility] Comment on above: Order Comment: Speci men Type: BLOOD SPECIMEN Ordering Facility: [facility] Address: [address] [place] [address] Performed By: #### 2 4323-8 #### [facility] CLIA [id number] [address] [place] [address] Urea nitrogen [Mass/Vol] 16 mg/dL Normal 9-24 [facility] Comment on above: Order Comment: Speci men Type: BLOOD SPECIMEN [facility]ing Facility: [facility] Address: [address] [place], [place] [address] Performed By: #### 2 4323-8 #### [facility] CLIA [id number] [address] [place] [address] Eosinophils/100 WBC Auto (Bl d)on 10-26-2023 Eosinophils/100 WBC (Bld) 1.5 % [facility] Erythrocyte distribution wid th Auto (RBC) [Ratio]on 10-26-2023 Erythrocyte distribution width (RBC) [Ratio] 13.8 % 11.5-15.0 [facility] Hematocrit Auto (Bld) [Volum e fraction]on 10-26-2023 Hematocrit (Bld) [Volume fraction] 42.6 % 39.0-51.0 [facility] Hemoglobin [Mass/volume] in Bloodon 10-26-2023 Hemoglobin (Bld) [Mass/Vol] 14.4 g/dL 13.0-17.0 [facility] - Chemistry and C hemistry - challengeon 10-26-2023 Albumin [Mass/Vol] 4.3 g/dL 3.9-4.9 [facility] ALP [Catalytic activity/Vol] 75 U/L 38-113 [facility] ALT [Catalytic activity/Vol] 10 U/L 10-54 [facility] AST [Catalytic activity/Vol] 9 U/L 14-40 [facility] Bilirubin [Mass/Vol] 0.5 mg/dL 0.2-1.3 [facility] Calcium [Mass/Vol] 9.9 mg/dL 8.5-10.2 [facility] Chloride [Moles/Vol] 106 mmol/L 97-105 [facility] CO2 [Moles/Vol] 27 mmol/L 22-30 [facility] Creatinine [Mass/Vol] 1.01 mg/dL 0.73-1.22 [facility] Glucose [Mass/Vol] 89 mg/dL 74-99 [facility] Comment on above: The [place] Diab[employer] s Association (ADA) provides guidance for cutoff values for fasting glucose and random glucose. The ADA defines fasting as no caloric intake for at least 8 hours. Fasting plasma glucose results between 100 to 125 mg/dL indicate increased risk for diabetes (prediabetes).Fasting plasma glucose results greater than or equal to 126 mg/dL meet the criteria for diagnosis of diabetes. In the absence of unequivocal hyperglycemia, results should be confirmed by repeat testing. In a patient with classic symptoms of hyperglycemia or hyperglycemic crisis, random plasma glucose results greater than or equal to 200 mg/dL meet the criteria for diagnosis of diabetes.Reference: Standards of Medical Care in Diabetes 2016, [place] [employer]. Diabetes Care. 2016.39(Suppl 1). Potassium [Moles/Vol] 4.0 mmol/L 3.7-5.1 [facility] Sodium [Moles/Vol] 141 mmol/L 136-144 [facility] Urea nitrogen [Mass/Vol] 16 mg/dL 9-24 [facility] - Hematology and Cell countson 10-26-2023 Eosinophils (Bld) [#/Vol] 0.13 10*3/uL <0.46 [facility] Immature granulocytes (Bld) [#/Vol] 0.03 10*3/uL <0.10 [facility] Immature granulocytes/100 WBC (Bld) 0.3 % [facility] Leukocytes [#/volume] correc mone for nucleated erythrocytes in Blood by Automated counon 10-26-2023 WBC corrected for nucl RBC Auto (Bld) [#/Vol] 8.78 k/uL 3.70-11.00 [facility] Lymphocytes Auto (Bld) [#/Vo l]on 10-26-2023 Lymphocytes (Bld) [#/Vol] 2.18 10*3/uL 1.00-4.00 [facility] Lymphocytes/100 WBC Auto (Bl d)on 10-26-2023 Lymphocytes/100 WBC (Bld) 24.8 % [facility] MCH Auto (RBC) [Entitic mass ]on 10-26-2023 MCH (RBC) [Entitic mass] 32.0 pg 26.0-34.0 [facility] MCHC Auto (RBC) [Mass/Vol]on 10-26-2023 MCHC (RBC) [Mass/Vol] 33.8 g/dL 30.5-36.0 [facility] MCV Auto (RBC) [Entitic vol] on 10-26-2023 MCV (RBC) [Entitic vol] 94.7 fL 80.0-100.0 [facility] Monocytes Auto (Bld) [#/Vol] on 10-26-2023 Monocytes (Bld) [#/Vol] 0.60 10*3/uL <0.87 [facility] Monocytes/100 WBC Auto (Bld) on 10-26-2023 Monocytes/100 WBC (Bld) 6.8 % [facility] Neutrophils Auto (Bld) [#/Vo l]on 10-26-2023 Neutrophils (Bld) [#/Vol] 5.80 10*3/uL 1.45-7.50 [facility] Neutrophils/100 WBC Auto (Bl d)on 10-26-2023 Neutrophils/100 WBC (Bld) 66.1 % [facility] No Panel Informationon 10-25 Estimated GFR (CKD-EPI) 85 mL/min/1.73m??? >=60 [facility] Comment on above: Estimated Glomerular Filtration Rate (eGFR) is calculated using the 2020 CKD-EPI creatinine equation. This equation utilizes serum creatinine, sex, and age as parameters. The creatinine assay has traceable calibration to isotope dilution-mass spectrometry. Refer to KDIGO guidelines for clinical interpretation. In patients with unstable renal function, e.g. those with acute kidney injury, the eGFR may not accurately reflect actual GFR. Nucleated RBC Auto (Bld) [#/ Vol]on 10-26-2023 Nucleated RBC (Bld) [#/Vol] 10*3/uL <0.01 [facility] Nucleated erythrocytes [Pres ence] in Blood by Automated counton 10-26-2023 Nucleated RBC Auto Ql (Bld) 0.0 /100{WBC} [facility] Platelet mean volume Auto (B ld) [Entitic vol]on 10-26-2023 Platelet mean volume (Bld) [Entitic vol] 10.2 fL 9.0-12.7 [facility] Platelets Auto (Bld) [#/Vol] on 10-26-2023 Platelets (Bld) [#/Vol] 314 10*3/uL 150-400 [facility] Protein [Mass/volume] in Ser um or Plasmaon 10-26-2023 Protein [Mass/Vol] 6.4 g/dL 6.3-8.0 [facility] RBC Auto (Bld) [#/Vol]on RBC (Bld) [#/Vol] 4.50 10*6/uL 4.20-6.00 [facility] Serum or plasma anion gap de terminationon 10-26-2023 Anion gap [Moles/Vol] 8 mmol/L 9-18 [facility] XR CERVICAL SPINE AP/LAT/FLE X/EXTon 10-16-2023 XR CERVICAL SPINE AP/LAT/FLEX/EXT FINDINGS: Cervical vertebral bodies are preserved in height and are relatively normally aligned. Severe disc space loss with moderate posterior and anterior osteophyte formation C3-4, C5-6, C6-7. Moderate diffuse facet arthropathy. No fracture or focal soft tissue swelling is seen. Prevertebral soft tissues are normal. Flexion and extension: C1-2 - C3-4: Normal alignment, no change C4-5: 1-2 mm anterolisthesis, minimal change C5-6: 1-2 mm retrolisthesis, no change C6-7: 1 mm retrolisthesis, no change IMPRESSION: 1. 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 No significant motion with flexion and extension TRANSCRIBED BY: ELECTRONICALLY SIGNED BY: Yung Redd MD Normal Not Available Alanine aminotransferase [En zymatic activity/volume] in Serum or PlasmaOrdered By: Griselda Krause on 10-09-2023 ALT [Catalytic activity/Vol] 8 U/L 7-52 [facility] Albumin [Mass/volume] in Ser um or Plasma by Bromocresol green (BCG) dye binding methoOrdered By: Griselda Krause on 10-09-2023 Albumin BCG dye [Mass/Vol] 3.9 g/dL 3.5-5.7 [facility] Alkaline phosphatase [Enzyma tic activity/volume] in Serum or PlasmaOrdered By: Griselda Krause on 10-09-2023 ALP [Catalytic activity/Vol] 59 U/L 34-104 [facility] Aspartate aminotransferase [ Enzymatic activity/volume] in Serum or PlasmaOrdered By: Griselda Krause on 10-09-2023 AST [Catalytic activity/Vol] 7 U/L 13-39 [facility] Basophils Auto (Bld) [#/Vol] Ordered By: Griselda Krause on 10-09-2023 Basophils (Bld) [#/Vol] 0.1 10*3/uL 0.0-0.2 [facility] Basophils/100 WBC Auto (Bld) Ordered By: Griselda Krause on 10-09-2023 Basophils/100 WBC (Bld) 0.9 % . [facility] Bilirubin.total [Mass/volume ] in Serum or PlasmaOrdered By: Griselda Krause on 10-09-2023 Bilirubin [Mass/Vol] 0.5 mg/dL 0.3-1.0 [facility] BioFire Not Detectedon 10-08 BioFire Not Detected Not detected Normal Not Detecte [facility] Comment on above: Result Comment: This is a duplicate RP2.1 COVID (PCR) result to be used for statistical tracking purpose only. PERFORMED BY: [facility] [address] [place] [id number] PATHOLOGIST [facility] CARMEN LYNCH M.D. Performed By: #### R DYAN PANEL UPP., CMP, BIOFIRECOVNOTDE, CBC ####[place] [id number] [place] [address] [facility] COVID-19 Detected/Not Detect edOrdered By: Griselda Krause on 10-09-2023 SARS-CoV-2 (COVID-19) RNA JER+non-probe Ql (Nph) Not detected Not Detecte [facility] Comment on above: This is a duplicate RP2.1 COVID (PCR) result to be used for statistical tracking purpose only. Calcium [Mass/volume] in Ser um or PlasmaOrdered By: Griselda Krause on 10-09-2023 Calcium [Mass/Vol] 9.5 mg/dL 8.6-10.3 [facility] Carbon dioxide, total [Moles /volume] in Serum or PlasmaOrdered By: Griselda Krause on 10-09-2023 CO2 [Moles/Vol] 30.0 mmol/L 21.0-31.0 [facility] Chloride [Moles/volume] in S rica or PlasmaOrdered By: Griselda Krause on 10-09-2023 Chloride [Moles/Vol] 103 mmol/L 98-107 [facility] Complete Blood Count Auto Di ffon 10-09-2023 Basophils (Bld) [#/Vol] 0.1 10*3/uL Normal 0.0-0.2 [facility] Comment on above: Result Comment: PERF ORMED BY: [facility] [address] [place] [phone] PATHOLOGIST [facility] CARMEN LYNCH M.D. Performed By: #### R DYAN PANEL UPP., CMP, BIOFIRECOVNOTDE, CBC ####[place] [id number] [place] [id number] [facility] Basophils/100 WBC (Bld) 0.9 % Normal . [facility] Comment on above: Performed By: #### R DYAN PANEL UPP., CMP, BIOFIRECOVNOTDE, CBC ####[address] Eosinophils (Bld) [#/Vol] 0.1 10*3/uL Normal 0.0-0.45 [facility] Comment on above: Performed By: #### R DYAN PANEL UPP., CMP, BIOFIRECOVNOTDE, CBC ####[address] Eosinophils/100 WBC (Bld) 1.0 % Normal . [facility] Comment on above: Performed By: #### R DYAN PANEL UPP., CMP, BIOFIRECOVNOTDE, CBC ####[address] Erythrocyte distribution width (RBC) [Ratio] 14.3 % Normal 12.0-14.8 [facility] Comment on above: Performed By: #### R DYAN PANEL UPP., CMP, BIOFIRECOVNOTDE, CBC ####[address] Hematocrit (Bld) [Volume fraction] 41.9 % Normal 38.8-50.0 [facility] Comment on above: Performed By: #### R DYAN PANEL UPP., CMP, BIOFIRECOVNOTDE, CBC ####[address] Hemoglobin (Bld) [Mass/Vol] 14.4 g/dL Normal 13.0-17.0 [facility] Comment on above: Performed By: #### R DYAN PANEL UPP., CMP, BIOFIRECOVNOTDE, CBC ####[address] Lymphocytes (Bld) [#/Vol] 2.7 10*3/uL Normal 1.00-4.8 [facility] Comment on above: Performed By: #### R DYAN PANEL UPP., CMP, BIOFIRECOVNOTDE, CBC ####[address] Lymphocytes/100 WBC (Bld) 33.6 % Normal . [facility] Comment on above: Performed By: #### R DYAN PANEL UPP., CMP, BIOFIRECOVNOTDE, CBC ####[address] MCH (RBC) [Entitic mass] 32.7 pg Normal 27.5-35.2 [facility] Comment on above: Performed By: #### R DYAN PANEL UPP., CMP, BIOFIRECOVNOTDE, CBC ####[address] MCV (RBC) [Entitic vol] 94.8 fL Normal 83.5-101 [facility] Comment on above: Performed By: #### R DYAN PANEL UPP., CMP, BIOFIRECOVNOTDE, CBC ####[address] Mean Corpuscular HGB Conc 34.4 g/dL Normal 32.5-35.6 [facility] Comment on above: Performed By: #### R DYAN PANEL UPP., CMP, BIOFIRECOVNOTDE, CBC ####[address] Monocytes (Bld) [#/Vol] 0.6 10*3/uL Normal 0.0-0.8 [facility] Comment on above: Performed By: #### R DYAN PANEL UPP., CMP, BIOFIRECOVNOTDE, CBC ####[address] Monocytes/100 WBC (Bld) 7.5 % Normal . [facility] Comment on above: Performed By: #### R DYAN PANEL UPP., CMP, BIOFIRECOVNOTDE, CBC ####[address] Neutrophils (Bld) [#/Vol] 4.6 10*3/uL Normal 1.8-7.7 [facility] Comment on above: Performed By: #### R DYAN PANEL UPP., CMP, BIOFIRECOVNOTDE, CBC ####[address] Neutrophils/100 WBC (Bld) 57.0 % Normal . [facility] Comment on above: Performed By: #### R DYAN PANEL UPP., CMP, BIOFIRECOVNOTDE, CBC ####[address] NRBC% 0.2 /100{WBC} Normal 0-0.5 [facility] Comment on above: Performed By: #### R DYAN PANEL UPP., CMP, BIOFIRECOVNOTDE, CBC ####[address] Platelet mean volume (Bld) [Entitic vol] 8.3 fL Normal 6.6-10.1 [facility] Comment on above: Performed By: #### R DYAN PANEL UPP., CMP, BIOFIRECOVNOTDE, CBC ####[address] Platelets (Bld) [#/Vol] 349 10*3/uL Normal 150-450 [facility] Comment on above: Performed By: #### R DYAN PANEL UPP., CMP, BIOFIRECOVNOTDE, CBC ####[address] RBC (Bld) [#/Vol] 4.42 10*6/uL Normal 3.90-5.60 [facility] Comment on above: Performed By: #### R DYAN PANEL UPP., CMP, BIOFIRECOVNOTDE, CBC ####[address] WBC (Bld) [#/Vol] 8.1 10*3/uL Normal 4.1-10.5 [facility] Comment on above: Performed By: #### R DYAN PANEL UPP., CMP, BIOFIRECOVNOTDE, CBC ####[place] [id number] [facility] Comprehensive Metabolic Pane chanel 10-09-2023 Albumin [Mass/Vol] 3.9 g/dL Normal 3.5-5.7 [facility] Comment on above: Performed By: #### R DYAN PANEL UPP., CMP, BIOFIRECOVNOTDE, CBC ####[address] Albumin/Globulin [Mass ratio] 2.0 {ratio} Normal [facility] Comment on above: Performed By: #### R DYAN PANEL UPP., CMP, BIOFIRECOVNOTDE, CBC ####[address] ALP [Catalytic activity/Vol] 59 U/L Normal 34-104 [facility] Comment on above: Result Comment: PERF ORMED BY: [facility] [address] [place] [address] PATHOLOGIST [facility] CARMEN LYNCH M.D. Performed By: #### R DYAN PANEL UPP., CMP, BIOFIRECOVNOTDE, CBC ####[address] ALT [Catalytic activity/Vol] 8 U/L Normal 7-52 [facility] Comment on above: Performed By: #### R DYAN PANEL UPP., CMP, BIOFIRECOVNOTDE, CBC ####[address] Anion gap [Moles/Vol] 9.5 mmol/L Normal 6.0-15.0 [facility] Comment on above: Performed By: #### R DYAN PANEL UPP., CMP, BIOFIRECOVNOTDE, CBC ####[address] AST [Catalytic activity/Vol] 7 U/L Low 13-39 [facility] Comment on above: Performed By: #### R DYAN PANEL UPP., CMP, BIOFIRECOVNOTDE, CBC ####[address] Bilirubin [Mass/Vol] 0.5 mg/dL Normal 0.3-1.0 [facility] Comment on above: Performed By: #### R DYAN PANEL UPP., CMP, BIOFIRECOVNOTDE, CBC ####[address] Calcium [Mass/Vol] 9.5 mg/dL Normal 8.6-10.3 [facility] Comment on above: Performed By: #### R DYAN PANEL UPP., CMP, BIOFIRECOVNOTDE, CBC ####[address] Chloride [Moles/Vol] 103 mmol/L Normal 98-107 [facility] Comment on above: Performed By: #### R DYAN PANEL UPP., CMP, BIOFIRECOVNOTDE, CBC ####[address] CO2 [Moles/Vol] 30.0 mmol/L Normal 21.0-31.0 [facility] Comment on above: Performed By: #### R DYAN PANEL UPP., CMP, BIOFIRECOVNOTDE, CBC ####[address] Creatinine [Mass/Vol] 0.92 mg/dL Normal 0.70-1.30 [facility] Comment on above: Performed By: #### R DYAN PANEL UPP., CMP, BIOFIRECOVNOTDE, CBC ####[address] GFR/1.73 sq M.predicted MDRD (S/P/Bld) [Vol rate/Area] mL/min/{1.73_m2} Normal [facility] Comment on above: Performed By: #### R DYAN PANEL UPP., CMP, BIOFIRECOVNOTDE, CBC ####[address] Globulin (S) [Mass/Vol] 2.0 g/dL Normal [facility] Comment on above: Performed By: #### R DYAN PANEL UPP., CMP, BIOFIRECOVNOTDE, CBC ####[address] Glucose [Mass/Vol] 84 mg/dL Normal 70-100 [facility] Comment on above: Result Comment: [facility] Glucose Reference Range is dependent on time and content of last meal. Glucose of more than 200 mg/dL in a nonstressed, ambulatory subject supports the diagnosis of Diabetes Mellitus. ADA recommended reference range Performed By: #### R DYAN PANEL UPP., CMP, BIOFIRECOVNOTDE, CBC ####[address] Potassium [Moles/Vol] 4.5 mmol/L Normal 3.5-5.1 [facility] Comment on above: Performed By: #### R DYAN PANEL UPP., CMP, BIOFIRECOVNOTDE, CBC ####[address] Protein [Mass/Vol] 5.9 g/dL Low 6.4-8.9 [facility] Comment on above: Performed By: #### R DYAN PANEL UPP., CMP, BIOFIRECOVNOTDE, CBC ####[address] Sodium [Moles/Vol] 138 mmol/L Normal 136-145 [facility] Comment on above: Performed By: #### R DYAN PANEL UPP., CMP, BIOFIRECOVNOTDE, CBC ####[place] [id number] [facility] Urea nitrogen [Mass/Vol] 14 mg/dL Normal 7-25 [facility] Comment on above: Performed By: #### R DYAN PANEL UPP., CMP, BIOFIRECOVNOTDE, CBC ####[place] [id number] [facility] Creatinine [Mass/volume] in Serum or PlasmaOrdered By: Griselda Krause on 10-09-2023 Creatinine [Mass/Vol] 0.92 mg/dL 0.70-1.30 [facility] Eosinophils Auto (Bld) [#/Vo l]Ordered By: Griselda Krause on 10-09-2023 Eosinophils (Bld) [#/Vol] 0.1 10*3/uL 0.0-0.45 [facility] Eosinophils/100 WBC Auto (Bl d)Ordered By: Griselda Krause on 10-09-2023 Eosinophils/100 WBC (Bld) 1.0 % . [facility] Erythrocyte distribution wid th Auto (RBC) [Ratio]Ordered By: Griselda Krause on 10-09-2023 Erythrocyte distribution width (RBC) [Ratio] 14.3 % 12.0-14.8 [facility] Globulin Calc (S) [Mass/Vol] Ordered By: Griselda Krause on 10-09-2023 Globulin (S) [Mass/Vol] 2.0 g/dL [facility] Glucose [Mass/volume] in Ser um or PlasmaOrdered By: Griselda Krause on 10-09-2023 Glucose [Mass/Vol] 84 mg/dL 70-100 [facility] Comment on above: ADA recommended refe rence rangeRandom Glucose Reference Range is dependent on time and content of last meal. Glucose of more than 200 mg/dL in a nonstressed, ambulatory subject supports the diagnosis of Diabetes Mellitus. Hematocrit Auto (Bld) [Volum e fraction]Ordered By: Griselda Krause on 10-09-2023 Hematocrit (Bld) [Volume fraction] 41.9 % 38.8-50.0 [facility] Hemoglobin [Mass/volume] in BloodOrdered By: Griselda Krause on 10-09-2023 Hemoglobin (Bld) [Mass/Vol] 14.4 g/dL 13.0-17.0 [facility] Leukocytes [#/volume] correc mone for nucleated erythrocytes in Blood by Automated counOrdered By: Griselda Krause on 10-09-2023 WBC corrected for nucl RBC Auto (Bld) [#/Vol] 8.1 10*3/uL 4.1-10.5 [facility] Lymphocytes Auto (Bld) [#/Vo l]Ordered By: Griselda Krause on 10-09-2023 Lymphocytes (Bld) [#/Vol] 2.7 10*3/uL 1.00-4.8 [facility] Lymphocytes/100 WBC Auto (Bl d)Ordered By: Griselda Krause on 10-09-2023 Lymphocytes/100 WBC (Bld) 33.6 % . [facility] MCH Auto (RBC) [Entitic mass ]Ordered By: Griselda Krause on 10-09-2023 MCH (RBC) [Entitic mass] 32.7 pg 27.5-35.2 [facility] MCHC Auto (RBC) [Mass/Vol]Or dered By: Griselda Krause on 10-09-2023 MCHC (RBC) [Mass/Vol] 34.4 g/dL 32.5-35.6 [facility] MCV Auto (RBC) [Entitic vol] Ordered By: Griselda Krause on 10-09-2023 MCV (RBC) [Entitic vol] 94.8 fL 83.5-101 [facility] Monocytes Auto (Bld) [#/Vol] Ordered By: Griselda Krause on 10-09-2023 Monocytes (Bld) [#/Vol] 0.6 10*3/uL 0.0-0.8 [facility] Monocytes/100 WBC Auto (Bld) Ordered By: Griselda Krause on 10-09-2023 Monocytes/100 WBC (Bld) 7.5 % . [facility] Neutrophils Auto (Bld) [#/Vo l]Ordered By: Grisedla Krause on 10-09-2023 Neutrophils (Bld) [#/Vol] 4.6 10*3/uL 1.8-7.7 [facility] Neutrophils/100 WBC Auto (Bl d)Ordered By: Griselda Krause on 10-09-2023 Neutrophils/100 WBC (Bld) 57.0 % . [facility] No Panel InformationOrdered By: Griselda Krause on 10-09-2023 Estimated GFR (CKD-EPI) > 60.0 mL/Min [facility] Creatinine Clearance (Chem N/A [facility] Nucleated erythrocytes [Pres ence] in Blood by Automated countOrdered By: Griselda Krause on 10-09-2023 Nucleated RBC Auto Ql (Bld) 0.2 /100{WBC} 0-0.5 [facility] Platelet mean volume Auto (B ld) [Entitic vol]Ordered By: Griselda Krause on 10-09-2023 Platelet mean volume (Bld) [Entitic vol] 8.3 fL 6.6-10.1 [facility] Platelets Auto (Bld) [#/Vol] Ordered By: Griselda Krause on 10-09-2023 Platelets (Bld) [#/Vol] 349 10*3/uL 150-450 [facility] Potassium [Moles/volume] in Serum or PlasmaOrdered By: Griselda Krause on 10-09-2023 Potassium [Moles/Vol] 4.5 mmol/L 3.5-5.1 [facility] Protein [Mass/volume] in Ser um or PlasmaOrdered By: Griselda Krause on 10-09-2023 Protein [Mass/Vol] 5.9 g/dL 6.4-8.9 [facility] RBC Auto (Bld) [#/Vol]Ordere d By: Griselda Krause on 10-09-2023 RBC (Bld) [#/Vol] 4.42 10*6/uL 3.90-5.60 [facility] Respiratory (Upper) Panel, P CRon 10-09-2023 Respiratory (Upper) Panel, PCR Adenovirus Not detected Bordetella parapertussis Not detected Chlamydia pneumoniae Not detected Coronavirus 229E Not detected Coronavirus HKU1 Not detected Coronavirus NL63 Not detected Coronavirus OC43 Not detected Influenza A Not detected Influenza B Not detected Human Metapneumovirus Not detected Mycoplasma pneumoniae Not detected Parainfluenza Virus 1 Not detected Parainfluenza Virus 2 Not detected Parainfluenza Virus 3 Not detected Parainfluenza Virus 4 Not detected Bordetella pertussis-ptxP Not detected Human Rhino/Enterovirus Not detected Resp. Syncytial Virus Not detected COVID-19 Detected/Not Detected Not detected Blank Space ---- FLUA TEST INCLUDES Influenza A tests for the following clinically FLUA TEST INCLUDES significant subtypes: FLUA TEST INCLUDES - Influenza A FLUA TEST INCLUDES - Influenza A H1 FLUA TEST INCLUDES - Influenza A H1 2009 FLUA TEST INCLUDES - Influenza A H3 Blank Space ---- PERFORMED BY: [place] [address] PATHOLOGIST [facility] CARMEN LYNCH M.D. Normal [facility] Comment on above: Performed By: #### R DYAN PANEL UPP., CMP, BIOFIRECOVNOTDE, CBC ####[facility] [id number] Respiratory pathogens DNA an d RNA panel - Nasopharynx by JER with non-probe detectionOrdered By: Griselda Krause on 10-09-2023 Respiratory pathogens DNA and RNA panel JER+non-probe (Nph) [facility] Serum or plasma albumin/glob ulin mass ratioOrdered By: Grsielda Krause on 10-09-2023 Albumin/Globulin [Mass ratio] 2.0 {ratio} [facility] Serum or plasma anion gap de terminationOrdered By: Griselda Krause on 10-09-2023 Anion gap [Moles/Vol] 9.5 mmol/L 6.0-15.0 [facility] Sodium [Moles/volume] in Ser um or PlasmaOrdered By: Griselda Krause on 10-09-2023 Sodium [Moles/Vol] 138 mmol/L 136-145 [facility] Urea nitrogen [Mass/volume] in Serum or PlasmaOrdered By: Griselda Krause on 10-09-2023 Urea nitrogen [Mass/Vol] 14 mg/dL 7-25 [facility] WBC Auto (Bld) [#/Vol]Ordere d By: Griselda Krause on 10-09-2023 WBC (Bld) [#/Vol] 8.1 10*3/uL 4.1-10.5 [facility] XR chest 2V*on 10-09-2023 XR chest 2V* [facility] [address] [place] [address] XRay Report Signed Patient: Jovani Melendez MR#: [id number] : 1960 Acct:[id number] Age/Sex: 62 / M ADM Date: 10/09/23 Loc: XD Room: Type: [facility] Attending Dr: Griselda Krause DO Copies to: Griselda Krause DO Ordering Provider: Griselda Krause DO Date of Service: 10/09/23 XR/XR chest 2V*: J01.90 - Acute sinusitis, unspecified Plain film chest 2 view HISTORY: Productive cough for one month COMPARISON: 04/16/2022 FINDINGS: SUPPORT DEVICES: None POSTSURGICAL CHANGES: None HEART: Within normal limits PULMONARY DYLAN: Within normal limits MEDIASTINUM: Unremarkable LUNGS AND PLEURA: No acute lung process, pleural effusion or pneumothorax identified. BONY STRUCTURES: Thoracic hyperostosis and spondylosis. ADDITIONAL FINDINGS None XR/XR chest 2V* IMPRESSION: No acute process. Impression dictated by: Filipe Perez M.D.10/09/2023 3:33 PM Dictation Location: [place] [address] Transcribed By: [facility] 10/09/23 1533 Dictated By: Filipe Perez DO 10/09/23 1532 Signed By: 10/09/23 1533 Normal [facility] MR TRANSFER OF OUTSIDE FILMS on 09-19-2023 MR TRANSFER OF OUTSIDE FILMS Outside images for comparison or treatment purposes, not interpreted by Radiologists. Normal [facility] Study Interpretation of outs jeffrey studyon 09-19-2023 Outside images for comparison or treatment purposes, not interpreted by Radiologists. IMAGING XR ABDOMEN 1 VIEWon 09-10-19 XR ABDOMEN [...] US ankle/arm indiceson 09-04 US ankle/arm indices [facility] [address] [place] [address] Ultrasound Report Signed Patient: Jovani Melendez MR#: [id number] : 1960 Acct:[id number] Age/Sex: 62 / M ADM Date: 09/05/23 Loc: [facility] Room: Type: [facility] Attending Dr: Ruddy Harvey MD Ordering [...] Ruddy Harvey MD09/05/2023 2:40 PM Dictation Location: [id number] Tech: Aguedasteven Helm Transcribed By: MARISA 09/05/23 1440 Dictated By: Ruddy Harvey MD 09/05/23 1439 Signed By: 09/05/23 1440 Normal [facility] MRI BRAIN W WO CONTRASTon MRI BRAIN [...] (COVID-19) RNA JER+probe Ql (Unsp spec) [facility] Other COVID + FLU Quick Testing [facility] Other Quick Strepon 07-02-2023 S. pyogenes Org specific cx Ql (Throat) [facility] Other Quick Strep [facility] Other RSVon 07-02-2023 RSV Ag IA Ql (Unsp spec) [facility] [employer] Other US UNI ankle/arm indiceson 1 07-31-2022 US UNI ankle/arm indices [facility] [place] [address] Ultrasound Report Signed Patient: Jovani Melendez MR#: [id number] : 1960 Acct:[id number] Age/Sex: 62 / M ADM Date: 05/30/23 Loc: [facility] Room: Type: [facility] Attending Dr: Ruddy Harvey MD Ordering [...] Ruddy Harvey MD05/30/2023 1:37 PM Dictation Location: [place] [address] Tech: Agueda Alicja Transcribed By: MARISA 05/30/231336 Dictated By: Ruddy Harvey MD 05/30/231336 Signed By: 05/30/231336 Normal [facility] Blood Urea Nitrogenon 2022 Urea nitrogen [Mass/Vol] 15 mg/dL Normal 01-09 [facility] Comment on above: Performed By: #### B UN, CREAT ####[place] [id number] [place] [id number] [place] Creatinineon 05-07-2023 Creatinine [Mass/Vol] 0.91 mg/dL Normal 0.70-1.30 [facility] Comment on above: Performed By: #### B UN, CREAT ####[place] [address] [place] [address] [facility] Creatinine Clr Calc Pharmacy 83.52 Normal [facility] Comment on above: Result Comment: PERF ORMED BY: [facility] [address] [place] [id number] PATHOLOGIST [facility] CARMEN LYNCH M.D. Performed By: #### B UN, CREAT ####[place] [id number] [place] [address] [place] GFR/1.73 sq M.predicted MDRD (S/P/Bld) [Vol rate/Area] mL/min/{1.73_m2} Normal [facility] Comment on above: Performed By: #### B UN, CREAT ####[place] [id number] [place] Creatinine [Mass/volume] in Serum or PlasmaOrdered By: Ruddy Harvey on 05-07-2023 Creatinine [Mass/Vol] 0.91 mg/dL 0.70-1.30 [facility] No Panel InformationOrdered By: Ruddy Harvey on 05-07-2023 Estimated GFR (CKD-EPI) > 60.0 mL/Min [facility] Creatinine Clearance (Chem 83.52 [facility] Urea nitrogen [Mass/volume] in Serum or PlasmaOrdered By: Ruddy Harvey on 05-07-2023 Urea nitrogen [Mass/Vol] 15 mg/dL 01-09 [facility] CT angio neckon 05-04-2023 CT angio neck [facility] [facility] [place] [address] [place] [address] CT Scan Report Signed Patient: Jovani Melendez MR#: [id number] : 1960 Acct:[id number] Age/Sex: 62 / M ADM Date: 05/04/23 Loc: CT Room: Type: [facility] Attending Dr: Nikole Thomason APRN, NICK-C Copies to: Nikole Thomason APRN,LUCIO Ordering Provider: Nikole Thomason APRN, CNP Date of Service: 05/04/23 CT/CT angio neck: H53.9, I65.23, I65.1, I66.09, I65.29 ([id number]) CT/CT angio head: H53.9, I65.23, I65.1, I66.09, [...] Alber Goodson M.D.05/04/2023 4:34 PM Dictation Location: [place] [address] Transcribed By: [facility] 05/04/23 1634 Dictated By: Alber Goodson II, MD 05/04/23 1549 Signed By: 05/04/23 1634 Normal [facility] Creatinine (Bld) [Mass/Vol]O rdered By: Nikole Thomason on 05-04-2023 Creatinine [Mass/Vol] 0.9 mg/dL 0.6-1.3 [facility] Comment on above: ER/ESD physician is notified/shown all ISTAT results.Critical values may be confirmed by laboratory testing ifdeemed necessary by ER attending doctor. ISTAT XRay CREon 05-04-2023 Creatinine [Mass/Vol] 0.9 mg/dL Normal 0.6-1.3 [facility] Comment on above: Result Comment: ER/E SD physician is notified/shown all ISTAT results. Critical values may be confirmed by laboratory testing if deemed necessary by ER attending doctor. Performed By: #### I SCRE #### [facility] [address] [place] [address] ISTAT GFR > 60.0 Normal [facility] Comment on above: Result Comment: PERF ORMED BY: [place] [address] PATHOLOGIST [facility] CARMEN LYNCH M.D. Performed By: #### I SCRE #### [facility] [address] [place] [address] No Panel InformationOrdered By: Nikole Thomason on 05-04-2023 Bedside Estimated GFR (eGFR) > 60.0 [facility] US arterial pvr rest Tom US arterial pvr rest [facility] [place] [address] Ultrasound Report Signed Patient: Jovani Melendez MR#: [id number] : 1960 Acct:[id number] Age/Sex: 62 / M ADM Date: 04/25/23 Loc: Room: Type: [facility] Attending Dr: Lilliam Cason MD [...] Ruddy Harvey MD04/26/2023 9:47 AM Dictation Location: [place] [address] Tech: Elisabet Mcclellan Transcribed By: MARISA 04/26/23946 Dictated By: Ruddy Harvey MD 04/26/23944 Signed By: 04/26/23946 Normal [facility] Alanine aminotransferase [En zymatic activity/volume] in Serum or PlasmaOrdered By: Griselda Krause on 03-30-2023 ALT [Catalytic activity/Vol] 10 U/L Normal 7-52 [facility] Comment on above: Order Comment: Reaso n for Exam Night sweats;Hyperlipidemia Performed By: #### C MP, LIPID, CBC, TSH3 #### [facility] [address] Albumin [Mass/volume] in Ser um or Plasma by Bromocresol green (BCG) dye binding methoOrdered By: Griselda Krause on 03-30-2023 Albumin BCG dye [Mass/Vol] 4.2 g/dL 3.5-5.7 [facility] Alkaline phosphatase [Enzyma tic activity/volume] in Serum or PlasmaOrdered By: Griselda Krause on 03-30-2023 ALP [Catalytic activity/Vol] 61 U/L Normal 34-104 [facility] Comment on above: Order Comment: Reaso n for Exam Night sweats;Hyperlipidemia Performed By: #### C MP, LIPID, CBC, TSH3 #### [facility] [address] [place] [address] Aspartate aminotransferase [ Enzymatic activity/volume] in Serum or PlasmaOrdered By: Griselda Krause on 03-30-2023 AST [Catalytic activity/Vol] 8 U/L Low 13-39 [facility] Comment on above: Order Comment: Reaso n for Exam Night sweats;Hyperlipidemia Performed By: #### C MP, LIPID, CBC, TSH3 #### [facility] [address] [place] [address] Automated basophil %Ordered By: Griselda Krause on 03-30-2023 Basophils/100 WBC (Bld) 0.8 % Normal . [facility] Comment on above: Order Comment: Reaso n for Exam Night sweats;Hyperlipidemia Performed By: #### C MP, LIPID, CBC, TSH3 #### [facility] [address] [place] [address] Automated basophil countOrde red By: Griselda Krause on 03-30-2023 Basophils (Bld) [#/Vol] 0.1 10*3/uL Normal 0.0-0.2 [facility] Comment on above: Order Comment: Reaso n for Exam Night sweats;Hyperlipidemia Result Comment: PERF ORMED BY: [place] [address] PATHOLOGIST [facility] CARMEN LYNCH M.D. Performed By: #### C MP, LIPID, CBC, TSH3 #### [facility] [address] Automated blood monocyte cou ntOrdered By: Griselda Krause on 03-30-2023 Monocytes (Bld) [#/Vol] 0.8 10*3/uL Normal 0.0-0.8 [facility] Comment on above: Order Comment: Reaso n for Exam Night sweats;Hyperlipidemia Performed By: #### C MP, LIPID, CBC, TSH3 #### [address] Automated eosinophil %Ordere d By: Griselda Krause on 03-30-2023 Eosinophils/100 WBC (Bld) 0.6 % Normal . [facility] Comment on above: Order Comment: Reaso n for Exam Night sweats;Hyperlipidemia Performed By: #### C MP, LIPID, CBC, TSH3 #### [address] Automated eosinophil countOr dered By: Griselda Krause on 03-30-2023 Eosinophils (Bld) [#/Vol] 0.1 10*3/uL Normal 0.0-0.45 [facility] Comment on above: Order Comment: Reaso n for Exam Night sweats;Hyperlipidemia Performed By: #### C MP, LIPID, CBC, TSH3 #### [address] Automated monocyte %Ordered By: Griselda Krause on 03-30-2023 Monocytes/100 WBC (Bld) 8.0 % Normal . [facility] Comment on above: Order Comment: Reaso n for Exam Night sweats;Hyperlipidemia Performed By: #### C MP, LIPID, CBC, TSH3 #### [facility] [address] [place] [address] [place] Automated neutrophil %Ordere d By: Griselda Krause on 03-30-2023 Neutrophils/100 WBC (Bld) 73.8 % Normal . [facility] Comment on above: Order Comment: Reaso n for Exam Night sweats;Hyperlipidemia Performed By: #### C MP, LIPID, CBC, TSH3 #### [address] [place] [address] [place] Bilirubin.total [Mass/volume ] in Serum or PlasmaOrdered By: Griselda Krause on 03-30-2023 Bilirubin [Mass/Vol] 0.9 mg/dL Normal 0.3-1.0 [facility] Comment on above: Order Comment: Reaso n for Exam Night sweats;Hyperlipidemia Performed By: #### C MP, LIPID, CBC, TSH3 #### [facility] [address] [place] [address] [place] Calcium [Mass/volume] in Ser um or PlasmaOrdered By: Griselda Krause on 03-30-2023 Calcium [Mass/Vol] 9.1 mg/dL Normal 8.6-10.3 [facility] Comment on above: Order Comment: Reaso n for Exam Night sweats;Hyperlipidemia Performed By: #### C MP, LIPID, CBC, TSH3 #### [facility] [address] Carbon dioxide, total [Moles /volume] in Serum or PlasmaOrdered By: Griselda Krause on 03-30-2023 CO2 [Moles/Vol] 27.0 mmol/L Normal 21.0-31.0 [facility] Comment on above: Order Comment: Reaso n for Exam Night sweats;Hyperlipidemia Performed By: #### C MP, LIPID, CBC, TSH3 #### [facility] [address] [place] [address] [place] Chloride [Moles/volume] in [place] r[place] or PlasmaOrdered By: Griselda Krause on 03-30-2023 Chloride [Moles/Vol] 103 mmol/L Normal 98-107 [facility] Comment on above: Order Comment: Reaso n for Exam Night sweats;Hyperlipidemia Performed By: #### C MP, LIPID, CBC, TSH3 #### [facility] [address] [place] [address] [place] Cholesterol [Mass/volume] in Serum or PlasmaOrdered By: Griselda Krause on 03-30-2023 Cholesterol [Mass/Vol] 224 mg/dL High 140-200 [facility] Comment on above: Chol less than 200 m g/dl low riskChol 201-239 mg/dl borderline riskChol 240 mg/dl and greater high risk Order Comment: Reaso n for Exam Night sweats;Hyperlipidemia Result Comment: Chol less than 200 mg/dl low risk Chol 201-239 mg/dl borderline risk Chol 240 mg/dl and greater high risk Performed By: #### C MP, LIPID, CBC, TSH3 ####[facility] [id number] Cholesterol in LDL Calc [Mas s/Vol]Ordered By: Griselda Krause on 03-30-2023 Cholesterol in LDL [Mass/Vol] 148 mg/dL 0-100 [facility] Comment on above: LDL ATP III CLASSIFI CATIONLDL less than 100 mg/dL OptimalLDL 100-129 mg/dL Near or above optimalLDL 130-159 mg/dL Borderline highLDL 160-189 mg/dL HighLDL greater than 189 mg/dL Very high Cholesterol in VLDL Calc [Ma ss/Vol]Ordered By: Griselda Krause on 03-30-2023 Cholesterol in VLDL [Mass/Vol] 31 mg/dL [facility] Complete Blood Count Auto Di ffon 03-30-2023 Mean Corpuscular HGB Conc 34.9 g/dL Normal 32.5-35.6 [facility] Comment on above: Order Comment: Reaso n for Exam Night sweats;Hyperlipidemia Performed By: #### C MP, LIPID, CBC, TSH3 #### [facility] [address] NRBC% 0.1 /100{WBC} Normal 0-0.5 [facility] Comment on above: Order Comment: Reaso n for Exam Night sweats;Hyperlipidemia Performed By: #### C MP, LIPID, CBC, TSH3 #### [facility] [address] Comprehensive Metabolic Pane chanel 03-30-2023 Albumin [Mass/Vol] 4.2 g/dL Normal 3.5-5.7 [facility] Comment on above: Order Comment: Reaso n for Exam Night sweats;Hyperlipidemia Performed By: #### C MP, LIPID, CBC, TSH3 #### [facility] [address] [place] [address] [place] GFR/1.73 sq M.predicted MDRD (S/P/Bld) [Vol rate/Area] mL/min/{1.73_m2} Normal [facility] Comment on above: Order Comment: Reaso n for Exam Night sweats;Hyperlipidemia Performed By: #### C MP, LIPID, CBC, TSH3 #### [facility] [address] Creatinine [Mass/volume] in Serum or PlasmaOrdered By: Griselda Krause on 03-30-2023 Creatinine [Mass/Vol] 0.82 mg/dL Normal 0.70-1.30 [facility] Comment on above: Order Comment: Reaso n for Exam Night sweats;Hyperlipidemia Performed By: #### C MP, LIPID, CBC, TSH3 #### [address] Erythrocyte distribution wid th [Ratio] by Automated countOrdered By: Griselda Krause on 03-30-2023 Erythrocyte distribution width (RBC) [Ratio] 14.1 % Normal 12.0-14.8 [facility] Comment on above: Order Comment: Reaso n for Exam Night sweats;Hyperlipidemia Performed By: #### C MP, LIPID, CBC, TSH3 #### [address] Erythrocytes [#/volume] in B lood by Automated countOrdered By: Griselda Krause on 03-30-2023 RBC (Bld) [#/Vol] 4.26 10*6/uL Normal 3.90-5.60 [facility] Comment on above: Order Comment: Reaso n for Exam Night sweats;Hyperlipidemia Performed By: #### C MP, LIPID, CBC, TSH3 #### [facility] [address] [place] [address] Glucose [Mass/volume] in Ser um or PlasmaOrdered By: Griselda Krause on 03-30-2023 Glucose [Mass/Vol] 83 mg/dL Normal 70-100 [facility] Comment on above: ADA recommended refe rence rangeRandom Glucose Reference Range is dependent on time and content of last meal. Glucose of more than 200 mg/dL in a nonstressed, ambulatory subject supports the diagnosis of Diabetes Mellitus. Order Comment: Reaso n for Exam Night sweats;Hyperlipidemia Result Comment: [facility] Glucose Reference Range is dependent on time and content of last meal. Glucose of more than 200 mg/dL in a nonstressed, ambulatory subject supports the diagnosis of Diabetes Mellitus. ADA recommended reference range Performed By: #### C MP, LIPID, CBC, TSH3 #### [address] Hematocrit [Volume Fraction] of Blood by Automated countOrdered By: Griselda Krause on 03-30-2023 Hematocrit (Bld) [Volume fraction] 41.4 % Normal 38.8-50.0 [facility] Comment on above: Order Comment: Reaso n for Exam Night sweats;Hyperlipidemia Performed By: #### C MP, LIPID, CBC, TSH3 #### [address] Hemoglobin [Mass/volume] in BloodOrdered By: Griselda Krause on 03-30-2023 Hemoglobin (Bld) [Mass/Vol] 14.4 g/dL Normal 13.0-17.0 [facility] Comment on above: Order Comment: Reaso n for Exam Night sweats;Hyperlipidemia Performed By: #### C MP, LIPID, CBC, TSH3 #### [address] Leukocytes [#/volume] correc mone for nucleated erythrocytes in Blood by Automated counOrdered By: Griselda Krause on 03-30-2023 WBC corrected for nucl RBC Auto (Bld) [#/Vol] 10.0 10*3/uL 4.1-10.5 [facility] Leukocytes [#/volume] in Blo od by Automated countOrdered By: Griselda Krause on 03-30-2023 WBC (Bld) [#/Vol] 10.0 10*3/uL Normal 4.1-10.5 [facility] Comment on above: Order Comment: Reaso n for Exam Night sweats;Hyperlipidemia Performed By: #### C MP, LIPID, CBC, TSH3 #### [place] [id number] [place] Lipid Panelon 03-30-2023 LDL Cholesterol,Calculated 148 mg/dL High 0-100 [facility] Comment on above: Order Comment: Reaso n for Exam Night sweats;Hyperlipidemia Result Comment: LDL ATP III CLASSIFICATION LDL less than 100 mg/dL Optimal LDL 100-129 mg/dL Near or above optimal LDL 130-159 mg/dL Borderline high LDL 160-189 mg/dL High LDL greater than 189 mg/dL Very high Performed By: #### C MP, LIPID, CBC, TSH3 ####[facility] Triglyceride w/Reflex 159 mg/dL High 0-149 [facility] Comment on above: Order Comment: Reaso n for Exam Night sweats;Hyperlipidemia Result Comment: TRIG ATP III CLASSIFICATION TRIG less than 150 mg/dL Normal TRIG 150-199 mg/dL Borderline high TRIG 200-500 mg/dL High TRIG greater than 500 mg/dL Very high Standard traceable to the Center for Disease Conrtrol and Prevention (CDC) test method. Performed By: #### C MP, LIPID, CBC, TSH3 ####[place] [id number] [address] VLDL CHOLESTEROL 31 mg/dL Normal [facility] Comment on above: Order Comment: Reaso n for Exam Night sweats;Hyperlipidemia Performed By: #### C MP, LIPID, CBC, TSH3 ####[place] [id number] [address] Lymphocytes [#/volume] in Bl ood by Automated countOrdered By: Griselda Krause on 03-30-2023 Lymphocytes (Bld) [#/Vol] 1.7 10*3/uL Normal 1.00-4.8 [facility] Comment on above: Order Comment: Reaso n for Exam Night sweats;Hyperlipidemia Performed By: #### C MP, LIPID, CBC, TSH3 #### [facility] [address] [place] [address] [place] Lymphocytes/100 leukocytes i n Blood by Automated countOrdered By: Griselda Krause on 03-30-2023 Lymphocytes/100 WBC (Bld) 16.8 % Normal . [facility] Comment on above: Order Comment: Reaso n for Exam Night sweats;Hyperlipidemia Performed By: #### C MP, LIPID, CBC, TSH3 #### [facility] [address] [place] [address] MCH [Entitic mass] by Automa mone countOrdered By: Griselda Krause on 03-30-2023 MCH (RBC) [Entitic mass] 33.9 pg Normal 27.5-35.2 [facility] Comment on above: Order Comment: Reaso n for Exam Night sweats;Hyperlipidemia Performed By: #### C MP, LIPID, CBC, TSH3 #### [facility] [address] [place] [address] MCHC Auto (RBC) [Mass/Vol]Or dered By: Griselda Krause on 03-30-2023 MCHC (RBC) [Mass/Vol] 34.9 g/dL 32.5-35.6 [facility] MCV [Entitic volume] by Auto mated countOrdered By: Griselda Krause on 03-30-2023 MCV (RBC) [Entitic vol] 97.1 fL Normal 83.5-101 [facility] Comment on above: Order Comment: Reaso n for Exam Night sweats;Hyperlipidemia Performed By: #### C MP, LIPID, CBC, TSH3 #### [facility] [address] [place] [address] Neutrophils [#/volume] in Bl ood by Automated countOrdered By: Griselda Krause on 03-30-2023 Neutrophils (Bld) [#/Vol] 7.3 10*3/uL Normal 1.8-7.7 [facility] Comment on above: Order Comment: Reaso n for Exam Night sweats;Hyperlipidemia Performed By: #### C MP, LIPID, CBC, TSH3 #### [facility] [address] [place] [address] No Panel InformationOrdered By: Griselda Krause on 03-30-2023 Estimated GFR (CKD-EPI) > 60.0 mL/Min [facility] Creatinine Clearance (Chem N/A [facility] Nucleated erythrocytes [Pres ence] in Blood by Automated countOrdered By: Griselda Krause on 03-30-2023 Nucleated RBC Auto Ql (Bld) 0.1 /100{WBC} 0-0.5 [facility] Platelet mean volume [Entiti c volume] in Blood by Automated countOrdered By: Griselda Krause on 03-30-2023 Platelet mean volume (Bld) [Entitic vol] 9.2 fL Normal 6.6-10.1 [facility] Comment on above: Order Comment: Reaso n for Exam Night sweats;Hyperlipidemia Performed By: #### C MP, LIPID, CBC, TSH3 #### [facility] [address] [place] [address] Platelets [#/volume] in Bloo d by Automated countOrdered By: Griselda Krause on 03-30-2023 Platelets (Bld) [#/Vol] 221 10*3/uL Normal 150-450 [facility] Comment on above: Order Comment: Reaso n for Exam Night sweats;Hyperlipidemia Performed By: #### C MP, LIPID, CBC, TSH3 #### [facility] [address] [place] [address] Potassium [Moles/volume] in Serum or PlasmaOrdered By: Griselda Krause on 03-30-2023 Potassium [Moles/Vol] 4.1 mmol/L Normal 3.5-5.1 [facility] Comment on above: Order Comment: Reaso n for Exam Night sweats;Hyperlipidemia Performed By: #### C MP, LIPID, CBC, TSH3 #### [facility] [address] [place] [address] [place] Protein [Mass/volume] in Ser um or PlasmaOrdered By: Griselda Krause on 03-30-2023 Protein [Mass/Vol] 6.1 g/dL Low 6.4-8.9 [facility] Comment on above: Order Comment: Reaso n for Exam Night sweats;Hyperlipidemia Performed By: #### C MP, LIPID, CBC, TSH3 #### [facility] [address] [place] [address] Serum globulin measurement b y calculation (mass/volume)Ordered By: Griselda Krause on 03-30-2023 Globulin (S) [Mass/Vol] 1.9 g/dL Normal [facility] Comment on above: Order Comment: Reaso n for Exam Night sweats;Hyperlipidemia Performed By: #### C MP, LIPID, CBC, TSH3 #### [facility] [address] Serum or plasma albumin/glob ulin mass ratioOrdered By: Griselda Krause on 03-30-2023 Albumin/Globulin [Mass ratio] 2.2 {ratio} Normal [facility] Comment on above: Order Comment: Reaso n for Exam Night sweats;Hyperlipidemia Performed By: #### C MP, LIPID, CBC, TSH3 #### [facility] [address] Serum or plasma anion gap de terminationOrdered By: Griselda Krause on 03-30-2023 Anion gap [Moles/Vol] 12.1 mmol/L Normal 6.0-15.0 [facility] Comment on above: Order Comment: Reaso n for Exam Night sweats;Hyperlipidemia Performed By: #### C MP, LIPID, CBC, TSH3 #### [facility] [address] Serum or plasma high density lipoprotein (HDL) cholesterol measurementOrdered By: Griselda Krause on 03-30-2023 Cholesterol in HDL [Mass/Vol] 44 mg/dL Normal 23-92 [facility] Comment on above: HDL CHOL ATP-III CLA SSIFICATION Cardiovascular RiskHDL > or equal to 60 mg/dL LOWHDL < 40 mg/dL HIGH Order Comment: Reaso n for Exam Night sweats;Hyperlipidemia Result Comment: HDL CHOL ATP-III CLASSIFICATION Cardiovascular Risk HDL > or equal to 60 mg/dL LOW HDL < 40 mg/dL HIGH Performed By: #### C MP, LIPID, CBC, TSH3 ####[facility] [id number] Serum or plasma total choles terol/high density lipoprotein (HDL) cholesterol mass ratOrdered By: Griselda Krause on 03-30-2023 Cholesterol.total/Chol esterol in HDL [Mass ratio] 5.1 {ratio} Normal <5.0 [facility] Comment on above: Order Comment: Reaso n for Exam Night sweats;Hyperlipidemia Performed By: #### C MP, LIPID, CBC, TSH3 ####[facility] [id number] Sodium [Moles/volume] in Ser um or PlasmaOrdered By: Griselda Krause on 03-30-2023 Sodium [Moles/Vol] 138 mmol/L Normal 136-145 [facility] Comment on above: Order Comment: Reaso n for Exam Night sweats;Hyperlipidemia Performed By: #### C MP, LIPID, CBC, TSH3 #### [facility] [address] Thyrotropin [Units/volume] i n Serum or PlasmaOrdered By: Griselda Krause on 03-30-2023 TSH Qn 0.93 m[IU]/L Normal 0.45-5.33 [facility] Comment on above: Order Comment: Reaso n for Exam Night sweats;Hyperlipidemia Result Comment: PERF ORMED BY: [place] [address] PATHOLOGIST [facility] CARMEN LYNCH M.D. Performed By: #### C MP, LIPID, CBC, TSH3 ####[place] [id number] [address] Triglyceride [Mass/volume] i n Serum or PlasmaOrdered By: Griselda Krause on 03-30-2023 Triglyceride [Mass/Vol] 159 mg/dL 0-149 [facility] Comment on above: TRIG ATP III CLASSIF ICATIONTRIG less than 150 mg/dL NormalTRIG 150-199 mg/dL Borderline highTRIG 200-500 mg/dL High TRIG greater than 500 mg/dL Very highStandard traceable to the Center for Disease Conrtrol and Prevention (CDC) test method. Urea nitrogen [Mass/volume] in Serum or PlasmaOrdered By: Griselda Krause on 03-30-2023 Urea nitrogen [Mass/Vol] 10 mg/dL Normal 7-25 [facility] Comment on above: Order Comment: Reaso n for Exam Night sweats;Hyperlipidemia Performed By: #### C MP, LIPID, CBC, TSH3 #### [facility] [address] [place] [address] [facility] COVID-19 Antigenon 3 COVID-19 Antigen Healthcare Worker?: [...] developed and its performance characteristic determined by [employer] and validated at [facility]. This test has not been FDA cleared [...] for SARS Antigen by JAMILA PERFORMED BY: [facility] [address] [facility] [id number] PATHOLOGIST [facility] CARMEN LYNCH M.D. Normal [facility] Comment on above: Performed By: #### C OVID-19 YENNY, SOFIANEG ####[facility] [id number] [place] [id number] [facility] COVID-19 SOFIAOrdered By: Brandyn Gaytan on 02-26-2023 SARS-CoV+SARS-CoV-2 (COVID-19) Ag IA.rapid Ql (Resp) Negative Negative [facility] Comment on above: This is a duplicate Yenny SARS Antigen (JAMILA) result to be used for statistical tracking purpose only. No Panel InformationOrdered By: Daniel Gaytan on 02-26-2023 SARS Antigen (LFIA) [facility] SARS Antigen (LFIA) [facility] Yenny Ag Negativeon 02-27-20 Yenny Ag Negative Negative Normal Negative [facility] Comment on above: Result Comment: This is a duplicate Yenny SARS Antigen (JAMILA) result to be used for statistical tracking purpose only. PERFORMED BY: [facility] [address] [place] [id number] PATHOLOGIST [facility] CARMEN LYNCH M.D. Performed By: #### C OVID-19 YENNY, SOFIANEG ####[facility] [id number] [place] [address] [facility] No Panel Informationon 12-28 XR Pain Management C ase (Reference Range: not available) *FINAL Date of Service: 12/28/2022 08:49 Adm #: [id number] Reading Dr:RICARDO CAPPS Signoff Dr: RICARDO CAPPS PROCEDURE: PAIN MANAGEMENT CASE - BXR 0999 REASON FOR EXAM: SPONDYLOSIS W/O MYELOPATHY OR RADICULOPATHY, CERVICAL REGION RESULT: Patient Name: JOVANI MELENDEZ STUDY: PAIN MANAGEMENT CASE INDICATION: SPONDYLOSIS W/O MYELOPATHY OR RADICULOPATHY, CERVICAL REGION COMPARISON: None. ACCESSION NUMBER(S): [id number] ORDERING CLINICIAN: LIMA JOSEPH TECHNIQUE: See below: FINDINGS: Fluoroscopy was provided during therapeutic puncture in the region of the cervical spine for pain management. Total fluoroscopy time: 14.56mgy, images: 4. IMPRESSION: Fluoroscopy for pain management. Dictation workstation: [id number] Original Interpreting Physician: RICARDO CAPPS M.D. Original Transcribed by/Date: MMODAL Dec 28 2022 6:14A Original Electronically Signed by/Date: RICARDO CAPPS M.D. Dec 28 2022 9:04A Addendum Interpreting Physician: Addendum Transcribed by/Date: NO ADDENDUM Addendum Electronically Signed by/Date: [facility] [employer] Quick Strepon 12-05-2022 S. pyogenes Org specific cx Ql (Throat) Negative [employer] Other Quick Strep [employer] [facility] [employer] Other XR pre/post mri xrayon 11-15 XR pre/post mri xray [facility] [place] [address] [place] [address] MRI Report Signed Patient: Jovani Melendez MR#: [id number] : 1960 Acct:[id number] Age/Sex: 61 / M ADM Date: 11/15/22 Loc: [facility] Room: Type: [facility] Attending Dr: Lima Joseph MD Copies to: Lima Joseph MD Ordering Provider: Lima Joseph MD Date of Service: 11/15/22 MR/MR lumbar spine wo con: M54.17 ([id number]) XR/XR pre/post mri xray: LUMBAR PRES MRI [...] Filipe Perez M.D.11/15/2022 1:41 PM Dictation Location: [id number] Transcribed By: [facility] 11/15/22 1341 Dictated By: Filipe Perez DO 11/15/22 1332 Signed By: 11/15/22 1341 Normal [facility] CNOVSPon 11-03-2022 CNOVSP Visit (SP) Office ([place]MN[place]) ----- JOVANI MELENDEZ ([id number]) 1960 M Date Time Provider Department 11/03/22 2:15 PM MEMO COLE During your visit today, we recorded the following information about you: Temperature Pulse Respiration Blood pressure 97.7 degrees 67/minute 16/minute 139/82 Weight Height 76.9 kg 1.706 m Memo Cole MD 11/05/2022 11:32 AM Signed NAME: Jovani Melendez [facility] NO.: [id number] DATE OF SERVICE: November 03, 2022 (Curtis) Some elements in this clinic note that are critical to medical decision making have been carefully reviewed and included from a prior clinic note dated: October 27, 2021 (Curtis) AND October 13, 2021 (Curtis) Referring Provider: Griselda Krause, DO Additional Clinicians involved in Jovani Melendez's care: Dr Kimberly Nichole ENT, Dr. Ibarra [place] surgery [facility] CC: Head and neck cancer ASSESSMENT: 61 year old man who underwent selective right neck dissection (II-V) and bilateral base of tongue/linguial tonsillar excision on 01/30/[address] 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 Pathology revealed 1 of 69 lymph nodes (Level II) positive for metastatic HPV+ SCC measuring 4.5 cm without extracapsular extension. 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 Only high-risk feature is the node being greater than 3 cm. He was advised at Tumor Board to undergo Radiation only. 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 PLAN: Scans and labs in 1 year RTC 1 week after TREATMENT TO DATE: 01/30/19 He had a neck dissection at [facility] HPI: Updated Visit, November 03, 2022: 61 yo man returns with his sigo Юлия. still following with neurosurgery. Scans are negative for recurrence. Still smoking. Updated Visit, October 27, 2021: Telephone 6 minutes. Follow up call regarding his abnormal MRI - Doing well - unlikely to be a tumor - possibly MS Will see him in 1 year Would like to get back to work Updated Visit, October 13, 2021: 1 month [...] 2020: Doing well, still smokes, works at [employer]. Reviewed scans and there is no evidence of scarring or progressive disease. He does have chronic lung disease associated with tobacco use and perhaps has bronchiolitis of both upper lobe. He continues regular follow-up with ENT and Dr. Ibarra. Updated Visit, April 15, 2020: Jovani is 59 years old and returns today to review his scans as comparison from 6 months ago. He still demonstrates no evidence of recurrence but unfortunately continues to smoke. Try to reeducate him again. He has minor dyspnea with chronic cough [...] blood cells, platelets. Slightly high absolute neutrophil count at 7800. PSA performed was 0.69. BMP was normal with calcium of 10.1, sodium and potassium within normal limits. Total protein of 6.3 with an albumin of 4.0. Creatinine was 0.83. Liver function studies were normal including alkaline phosphatase. TSH was 1.39. CT of the chest performed on 11/12/17 showed abnormal enlarging right jugulodigastric lymph node and moderate mucosal thickening. Also noted irregular suspicious left upper lobe pulmonary nodule 6 mm. RADIOGRAPHIC DATA: Reviewed on October 13, 2021. 5. 10/06/2021 CT Neck - Chest w/Cont: Neck: 1. MODERATE DEGENERATIVE CHANGES INVOLVING THE CERVICAL SPINE. MODERATE ATHEROSCLE (more content not included)... Normal [facility] Alanine aminotransferase [En zymatic activity/volume] in Serum or PlasmaOrdered By: Griselda Krause on 10-24-2022 ALT [Catalytic activity/Vol] 7 U/L 7-52 [facility] Albumin [Mass/volume] in Ser um or Plasma by Bromocresol green (BCG) dye binding methoOrdered By: Griselda Krause on 10-24-2022 Albumin BCG dye [Mass/Vol] 4.2 g/dL 3.5-5.7 [facility] Alkaline phosphatase [Enzyma tic activity/volume] in Serum or PlasmaOrdered By: Griselda Krause on 10-24-2022 ALP [Catalytic activity/Vol] 76 U/L 34-104 [facility] Aspartate aminotransferase [ Enzymatic activity/volume] in Serum or PlasmaOrdered By: Griselda Krause on 10-24-2022 AST [Catalytic activity/Vol] 10 U/L 13-39 [facility] Basophils Auto (Bld) [#/Vol] Ordered By: Griselda Krause on 10-24-2022 Basophils (Bld) [#/Vol] 0.0 10*3/uL 0.0-0.2 [facility] Basophils/100 WBC Auto (Bld) Ordered By: Griselda Krause on 10-24-2022 Basophils/100 WBC (Bld) 0.9 % . [facility] Bilirubin.total [Mass/volume ] in Serum or PlasmaOrdered By: Griselda Krause on 10-24-2022 Bilirubin [Mass/Vol] 0.4 mg/dL 0.3-1.0 [facility] Calcium [Mass/volume] in Ser um or PlasmaOrdered By: Griselda Krause on 10-24-2022 Calcium [Mass/Vol] 9.1 mg/dL 8.6-10.3 [facility] Carbon dioxide, total [Moles /volume] in Serum or PlasmaOrdered By: Griselda Krause on 10-24-2022 CO2 [Moles/Vol] 28.3 mmol/L 21.0-31.0 [facility] Chloride [Moles/volume] in S r[place] or PlasmaOrdered By: Griselda Krause on 10-24-2022 Chloride [Moles/Vol] 105 mmol/L 98-107 [facility] Cholesterol [Mass/volume] in Serum or PlasmaOrdered By: Griselda Krause on 10-24-2022 Cholesterol [Mass/Vol] 240 mg/dL 140-200 [facility] Comment on above: Chol less than 200 m g/dl low riskChol 201-239 mg/dl borderline riskChol 240 mg/dl and greater high risk Cholesterol in LDL Calc [Mas s/Vol]Ordered By: Griselda Krause on 10-24-2022 Cholesterol in LDL [Mass/Vol] 169 mg/dL 0-100 [facility] Comment on above: LDL ATP III CLASSIFI CATIONLDL less than 100 mg/dL OptimalLDL 100-129 mg/dL Near or above optimalLDL 130-159 mg/dL Borderline highLDL 160-189 mg/dL HighLDL greater than 189 mg/dL Very high Cholesterol in VLDL Calc [Ma ss/Vol]Ordered By: Griselda Krause on 10-24-2022 Cholesterol in VLDL [Mass/Vol] 35 mg/dL [facility] Complete Blood Count Auto Di ffon 10-24-2022 Basophils (Bld) [#/Vol] 0.0 10*3/uL Normal 0.0-0.2 [facility] Comment on above: Order Comment: Reaso n for Exam Hyperlipidemia Result Comment: PERF ORMED BY: [place] [address] PATHOLOGIST [facility] CARMEN LYNCH M.D. Performed By: #### P SAS, TSH3, LIPID, CMP, CBC #### [facility] [address] Basophils/100 WBC (Bld) 0.9 % Normal . [facility] Comment on above: Order Comment: Reaso n for Exam Hyperlipidemia Performed By: #### P SAS, TSH3, LIPID, CMP, CBC #### [place] [address] [place] Eosinophils (Bld) [#/Vol] 0.1 10*3/uL Normal 0.0-0.45 [facility] Comment on above: Order Comment: Reaso n for Exam Hyperlipidemia Performed By: #### P SAS, TSH3, LIPID, CMP, CBC #### [address] Eosinophils/100 WBC (Bld) 2.0 % Normal . [facility] Comment on above: Order Comment: Reaso n for Exam Hyperlipidemia Performed By: #### P SAS, TSH3, LIPID, CMP, CBC #### [address] Erythrocyte distribution width (RBC) [Ratio] 14.7 % Normal 12.0-14.8 [facility] Comment on above: Order Comment: Reaso n for Exam Hyperlipidemia Performed By: #### P SAS, TSH3, LIPID, CMP, CBC #### [address] Hematocrit (Bld) [Volume fraction] 43.4 % Normal 38.8-50.0 [facility] Comment on above: Order Comment: Reaso n for Exam Hyperlipidemia Performed By: #### P SAS, TSH3, LIPID, CMP, CBC #### [address] Hemoglobin (Bld) [Mass/Vol] 14.5 g/dL Normal 13.0-17.0 [facility] Comment on above: Order Comment: Reaso n for Exam Hyperlipidemia Performed By: #### P SAS, TSH3, LIPID, CMP, CBC #### [place] [address] [place] Lymphocytes (Bld) [#/Vol] 2.0 10*3/uL Normal 1.00-4.8 [facility] Comment on above: Order Comment: Reaso n for Exam Hyperlipidemia Performed By: #### P SAS, TSH3, LIPID, CMP, CBC #### [address] Lymphocytes/100 WBC (Bld) 39.8 % Normal . [facility] Comment on above: Order Comment: Reaso n for Exam Hyperlipidemia Performed By: #### P SAS, TSH3, LIPID, CMP, CBC #### [address] MCH (RBC) [Entitic mass] 31.5 pg Normal 27.5-35.2 [facility] Comment on above: Order Comment: Reaso n for Exam Hyperlipidemia Performed By: #### P SAS, TSH3, LIPID, CMP, CBC #### [address] MCV (RBC) [Entitic vol] 94.0 fL Normal 83.5-101 [facility] Comment on above: Order Comment: Reaso n for Exam Hyperlipidemia Performed By: #### P SAS, TSH3, LIPID, CMP, CBC #### [address] Mean Corpuscular HGB Conc 33.5 g/dL Normal 32.5-35.6 [facility] Comment on above: Order Comment: Reaso n for Exam Hyperlipidemia Performed By: #### P SAS, TSH3, LIPID, CMP, CBC #### [address] Monocytes (Bld) [#/Vol] 0.3 10*3/uL Normal 0.0-0.8 [facility] Comment on above: Order Comment: Reaso n for Exam Hyperlipidemia Performed By: #### P SAS, TSH3, LIPID, CMP, CBC #### [address] Monocytes/100 WBC (Bld) 5.4 % Normal . [facility] Comment on above: Order Comment: Reaso n for Exam Hyperlipidemia Performed By: #### P SAS, TSH3, LIPID, CMP, CBC #### [address] Neutrophils (Bld) [#/Vol] 2.6 10*3/uL Normal 1.8-7.7 [facility] Comment on above: Order Comment: Reaso n for Exam Hyperlipidemia Performed By: #### P SAS, TSH3, LIPID, CMP, CBC #### [facility] [address] [place] [address] [place] Neutrophils/100 WBC (Bld) 51.9 % Normal . [facility] Comment on above: Order Comment: Reaso n for Exam Hyperlipidemia Performed By: #### P SAS, TSH3, LIPID, CMP, CBC #### [facility] [address] NRBC% 0.1 /100{WBC} Normal 0-0.5 [facility] Comment on above: Order Comment: Reaso n for Exam Hyperlipidemia Performed By: #### P SAS, TSH3, LIPID, CMP, CBC #### [facility] [address] Platelet mean volume (Bld) [Entitic vol] 9.6 fL Normal 6.6-10.1 [facility] Comment on above: Order Comment: Reaso n for Exam Hyperlipidemia Performed By: #### P SAS, TSH3, LIPID, CMP, CBC #### [facility] [address] [place] [address] [place] Platelets (Bld) [#/Vol] 247 10*3/uL Normal 150-450 [facility] Comment on above: Order Comment: Reaso n for Exam Hyperlipidemia Performed By: #### P SAS, TSH3, LIPID, CMP, CBC #### [facility] [address] [place] [address] [place] RBC (Bld) [#/Vol] 4.61 10*6/uL Normal 3.90-5.60 [facility] Comment on above: Order Comment: Reaso n for Exam Hyperlipidemia Performed By: #### P SAS, TSH3, LIPID, CMP, CBC #### [facility] [address] [place] [address] [place] WBC (Bld) [#/Vol] 5.0 10*3/uL Normal 4.1-10.5 [facility] Comment on above: Order Comment: Reaso n for Exam Hyperlipidemia Performed By: #### P SAS, TSH3, LIPID, CMP, CBC #### [facility] [address] Comprehensive Metabolic Pane chanel 10-24-2022 Albumin [Mass/Vol] 4.2 g/dL Normal 3.5-5.7 [facility] Comment on above: Order Comment: Reaso n for Exam Hyperlipidemia Performed By: #### P SAS, TSH3, LIPID, CMP, CBC #### [address] Albumin/Globulin [Mass ratio] 2.0 {ratio} Normal [facility] Comment on above: Order Comment: Reaso n for Exam Hyperlipidemia Performed By: #### P SAS, TSH3, LIPID, CMP, CBC #### [address] ALP [Catalytic activity/Vol] 76 U/L Normal 34-104 [facility] Comment on above: Order Comment: Reaso n for Exam Hyperlipidemia Performed By: #### P SAS, TSH3, LIPID, CMP, CBC #### [address] ALT [Catalytic activity/Vol] 7 U/L Normal 7-52 [facility] Comment on above: Order Comment: Reaso n for Exam Hyperlipidemia Performed By: #### P SAS, TSH3, LIPID, CMP, CBC #### [address] Anion gap [Moles/Vol] 11.7 mmol/L Normal 6.0-15.0 [facility] Comment on above: Order Comment: Reaso n for Exam Hyperlipidemia Performed By: #### P SAS, TSH3, LIPID, CMP, CBC #### [place] [address] [place] AST [Catalytic activity/Vol] 10 U/L Low 13-39 [facility] Comment on above: Order Comment: Reaso n for Exam Hyperlipidemia Performed By: #### P SAS, TSH3, LIPID, CMP, CBC #### [place] [address] [place] Bilirubin [Mass/Vol] 0.4 mg/dL Normal 0.3-1.0 [facility] Comment on above: Order Comment: Reaso n for Exam Hyperlipidemia Performed By: #### P SAS, TSH3, LIPID, CMP, CBC #### [facility] [address] Calcium [Mass/Vol] 9.1 mg/dL Normal 8.6-10.3 [facility] Comment on above: Order Comment: Reaso n for Exam Hyperlipidemia Performed By: #### P SAS, TSH3, LIPID, CMP, CBC #### [facility] [address] Chloride [Moles/Vol] 105 mmol/L Normal 98-107 [facility] Comment on above: Order Comment: Reaso n for Exam Hyperlipidemia Performed By: #### P SAS, TSH3, LIPID, CMP, CBC #### [facility] [address] [place] [address] CO2 [Moles/Vol] 28.3 mmol/L Normal 21.0-31.0 [facility] Comment on above: Order Comment: Reaso n for Exam Hyperlipidemia Performed By: #### P SAS, TSH3, LIPID, CMP, CBC #### [facility] [address] [place] [address] Creatinine [Mass/Vol] 0.88 mg/dL Normal 0.70-1.30 [facility] Comment on above: Order Comment: Reaso n for Exam Hyperlipidemia Performed By: #### P SAS, TSH3, LIPID, CMP, CBC #### [facility] [address] [place] [address] GFR/1.73 sq M.predicted MDRD (S/P/Bld) [Vol rate/Area] mL/min/{1.73_m2} Normal [facility] Comment on above: Order Comment: Reaso n for Exam Hyperlipidemia Performed By: #### P SAS, TSH3, LIPID, CMP, CBC #### [facility] [address] [place] [address] Globulin (S) [Mass/Vol] 2.1 g/dL Normal [facility] Comment on above: Order Comment: Reaso n for Exam Hyperlipidemia Performed By: #### P SAS, TSH3, LIPID, CMP, CBC #### [facility] [address] Glucose [Mass/Vol] 82 mg/dL Normal 70-100 [facility] Comment on above: Order Comment: Reaso n for Exam Hyperlipidemia Result Comment: Maljamar Glucose Reference Range is dependent on time and content of last meal. Glucose of more than 200 mg/dL in a nonstressed, ambulatory subject supports the diagnosis of Diabetes Mellitus. ADA recommended reference range Performed By: #### P SAS, TSH3, LIPID, CMP, CBC #### [facility] [address] [place] [address] [place] Potassium [Moles/Vol] 4.0 mmol/L Normal 3.5-5.1 [facility] Comment on above: Order Comment: Reaso n for Exam Hyperlipidemia Performed By: #### P SAS, TSH3, LIPID, CMP, CBC #### [facility] [address] [place] [address] [place] Protein [Mass/Vol] 6.3 g/dL Low 6.4-8.9 [facility] Comment on above: Order Comment: Reaso n for Exam Hyperlipidemia Performed By: #### P SAS, TSH3, LIPID, CMP, CBC #### [facility] [address] [place] [address] [place] Sodium [Moles/Vol] 141 mmol/L Normal 136-145 [facility] Comment on above: Order Comment: Reaso n for Exam Hyperlipidemia Performed By: #### P SAS, TSH3, LIPID, CMP, CBC #### [facility] [address] [place] [address] [place] Urea nitrogen [Mass/Vol] 15 mg/dL Normal 7-25 [facility] Comment on above: Order Comment: Reaso n for Exam Hyperlipidemia Performed By: #### P SAS, TSH3, LIPID, CMP, CBC #### [place] [address] [place] Creatinine [Mass/volume] in Serum or PlasmaOrdered By: Griselda Krause on 10-24-2022 Creatinine [Mass/Vol] 0.88 mg/dL 0.70-1.30 [facility] Eosinophils Auto (Bld) [#/Vo l]Ordered By: Griselda Krause on 10-24-2022 Eosinophils (Bld) [#/Vol] 0.1 10*3/uL 0.0-0.45 [facility] Eosinophils/100 WBC Auto (Bl d)Ordered By: Griselda Krause on 10-24-2022 Eosinophils/100 WBC (Bld) 2.0 % . [facility] Erythrocyte distribution wid th Auto (RBC) [Ratio]Ordered By: Griselda Krause on 10-24-2022 Erythrocyte distribution width (RBC) [Ratio] 14.7 % 12.0-14.8 [facility] Globulin Calc (S) [Mass/Vol] Ordered By: Griselda Krause on 10-24-2022 Globulin (S) [Mass/Vol] 2.1 g/dL [facility] Glucose [Mass/volume] in Ser um or PlasmaOrdered By: Griselda Krause on 10-24-2022 Glucose [Mass/Vol] 82 mg/dL 70-100 [facility] Comment on above: ADA recommended refe rence rangeRandom Glucose Reference Range is dependent on time and content of last meal. Glucose of more than 200 mg/dL in a nonstressed, ambulatory subject supports the diagnosis of Diabetes Mellitus. Hematocrit Auto (Bld) [Volum e fraction]Ordered By: Griselda Krause on 10-24-2022 Hematocrit (Bld) [Volume fraction] 43.4 % 38.8-50.0 [facility] Hemoglobin [Mass/volume] in BloodOrdered By: Griselad Krause on 10-24-2022 Hemoglobin (Bld) [Mass/Vol] 14.5 g/dL 13.0-17.0 [facility] Leukocytes [#/volume] correc mone for nucleated erythrocytes in Blood by Automated counOrdered By: Griselda Krause on 10-24-2022 WBC corrected for nucl RBC Auto (Bld) [#/Vol] 5.0 10*3/uL 4.1-10.5 [facility] Lipid Panelon 10-24-2022 Cholesterol [Mass/Vol] 240 mg/dL High 140-200 [facility] Comment on above: Order Comment: Reaso n for Exam Hyperlipidemia Result Comment: Chol less than 200 mg/dl low risk Chol 201-239 mg/dl borderline risk Chol 240 mg/dl and greater high risk Performed By: #### P SAS, TSH3, LIPID, CMP, CBC #### [facility] [address] [place] [id number] [place] Cholesterol in HDL [Mass/Vol] 36 mg/dL Normal 29-71 [facility] Comment on above: Order Comment: Reaso n for Exam Hyperlipidemia Result Comment: HDL CHOL ATP-III CLASSIFICATION Cardiovascular Risk HDL > or equal to 60 mg/dL LOW HDL < 40 mg/dL HIGH Performed By: #### P SAS, TSH3, LIPID, CMP, CBC #### [facility] [address] [place] [address] [place] Cholesterol.total/Chol esterol in HDL [Mass ratio] 6.7 {ratio} Normal <5.0 [facility] Comment on above: Order Comment: Reaso n for Exam Hyperlipidemia Performed By: #### P SAS, TSH3, LIPID, CMP, CBC #### [facility] [address] [place] [id number] [place] LDL Cholesterol,Calculated 169 mg/dL High 0-100 [facility] Comment on above: Order Comment: Reaso n for Exam Hyperlipidemia Result Comment: LDL ATP III CLASSIFICATION LDL less than 100 mg/dL Optimal LDL 100-129 mg/dL Near or above optimal LDL 130-159 mg/dL Borderline high LDL 160-189 mg/dL High LDL greater than 189 mg/dL Very high Performed By: #### P SAS, TSH3, LIPID, CMP, CBC #### [facility] [address] [place] [id number] [place] Triglyceride w/Reflex 175 mg/dL High 0-149 [facility] Comment on above: Order Comment: Reaso n for Exam Hyperlipidemia Result Comment: TRIG ATP III CLASSIFICATION TRIG less than 150 mg/dL Normal TRIG 150-199 mg/dL Borderline high TRIG 200-500 mg/dL High TRIG greater than 500 mg/dL Very high Standard traceable to the Center for Disease Conrtrol and Prevention (CDC) test method. Performed By: #### P SAS, TSH3, LIPID, CMP, CBC #### [facility] [address] VLDL CHOLESTEROL 35 mg/dL Normal [facility] Comment on above: Order Comment: Muriel n for Exam Hyperlipidemia Performed By: #### P SAS, TSH3, LIPID, CMP, CBC #### [facility] [address] [place] [id number] [facility] Lymphocytes Auto (Bld) [#/Vo l]Ordered By: Griselda Krause on 10-24-2022 Lymphocytes (Bld) [#/Vol] 2.0 10*3/uL 1.00-4.8 [facility] Lymphocytes/100 WBC Auto (Bl d)Ordered By: Griselda Krause on 10-24-2022 Lymphocytes/100 WBC (Bld) 39.8 % . [facility] MCH Auto (RBC) [Entitic mass ]Ordered By: Griselda Krause on 10-24-2022 MCH (RBC) [Entitic mass] 31.5 pg 27.5-35.2 [facility] MCHC Auto (RBC) [Mass/Vol]Or dered By: Griselda Krause on 10-24-2022 MCHC (RBC) [Mass/Vol] 33.5 g/dL 32.5-35.6 [facility] MCV Auto (RBC) [Entitic vol] Ordered By: Griselda Krause on 10-24-2022 MCV (RBC) [Entitic vol] 94.0 fL 83.5-101 [facility] Monocytes Auto (Bld) [#/Vol] Ordered By: Griselda Krause on 10-24-2022 Monocytes (Bld) [#/Vol] 0.3 10*3/uL 0.0-0.8 [facility] Monocytes/100 WBC Auto (Bld) Ordered By: Griselda Krause on 10-24-2022 Monocytes/100 WBC (Bld) 5.4 % . [facility] Neutrophils Auto (Bld) [#/Vo l]Ordered By: Griselda Krause on 10-24-2022 Neutrophils (Bld) [#/Vol] 2.6 10*3/uL 1.8-7.7 [facility] Neutrophils/100 WBC Auto (Bl d)Ordered By: Griselda Krause on 10-24-2022 Neutrophils/100 WBC (Bld) 51.9 % . [facility] No Panel InformationOrdered By: Griselda Krause on 10-24-2022 Estimated GFR (CKD-EPI) > 60.0 mL/Min [facility] Creatinine Clearance (Chem N/A [facility] Nucleated erythrocytes [Pres ence] in Blood by Automated countOrdered By: Griselda Krause on 10-24-2022 Nucleated RBC Auto Ql (Bld) 0.1 /100{WBC} 0-0.5 [facility] PSA Screen (Yearly Only)on 0 10-24-2022 PSA Screen (Yearly Only) 0.370 ng/mL Normal 0.000-4.00 0 [facility] Comment on above: Order Comment: Reaso n for Exam Screening for prostate cancer Is patient <50 yrs? Medicare does not pay <50.: N What is the date of the last PSA Screen?: [id number] Is Medicare the insurance?: N Did you verify eligibility (Dx Time) check TestViewGp: YES TO ALL Result Comment: PERF ORMED BY: [place] [address] PATHOLOGIST [facility] CARMEN LYNCH M.D. Performed By: #### P SAS, TSH3, LIPID, CMP, CBC #### [address] Platelet mean volume Auto (B ld) [Entitic vol]Ordered By: Griselda Krause on 10-24-2022 Platelet mean volume (Bld) [Entitic vol] 9.6 fL 6.6-10.1 [facility] Platelets Auto (Bld) [#/Vol] Ordered By: Griselda Krause on 10-24-2022 Platelets (Bld) [#/Vol] 247 10*3/uL 150-450 [facility] Potassium [Moles/volume] in Serum or PlasmaOrdered By: Griselda Krause on 10-24-2022 Potassium [Moles/Vol] 4.0 mmol/L 3.5-5.1 [facility] Prostate specific Ag [Mass/v olume] in Serum or PlasmaOrdered By: Griselda Krause on 10-24-2022 Prostate specific Ag [Mass/Vol] 0.370 ng/mL 0.000-4.00 0 [facility] Protein [Mass/volume] in Ser um or PlasmaOrdered By: Griselda Krause on 10-24-2022 Protein [Mass/Vol] 6.3 g/dL 6.4-8.9 [facility] RBC Auto (Bld) [#/Vol]Ordere d By: Griselda Krause on 10-24-2022 RBC (Bld) [#/Vol] 4.61 10*6/uL 3.90-5.60 [facility] Serum or plasma albumin/glob ulin mass ratioOrdered By: Griselda Krause on 10-24-2022 Albumin/Globulin [Mass ratio] 2.0 {ratio} [facility] Serum or plasma anion gap de terminationOrdered By: Griselda Krause on 10-24-2022 Anion gap [Moles/Vol] 11.7 mmol/L 6.0-15.0 [facility] Serum or plasma high density lipoprotein (HDL) cholesterol measurementOrdered By: Griselda Krause on 10-24-2022 Cholesterol in HDL [Mass/Vol] 36 mg/dL 29-71 [facility] Comment on above: HDL CHOL ATP-III CLA SSIFICATION Cardiovascular RiskHDL > or equal to 60 mg/dL LOWHDL < 40 mg/dL HIGH Serum or plasma total choles terol/high density lipoprotein (HDL) cholesterol mass ratOrdered By: Griselda Krause on 10-24-2022 Cholesterol.total/Chol esterol in HDL [Mass ratio] 6.7 {ratio} <5.0 [facility] Sodium [Moles/volume] in Ser um or PlasmaOrdered By: Griselda Krause on 10-24-2022 Sodium [Moles/Vol] 141 mmol/L 136-145 [facility] Thyroid Stimulating Hormoneo n 10-24-2022 TSH Qn 1.26 m[IU]/L Normal 0.45-5.33 [facility] Comment on above: Order Comment: Reaso n for Exam Hyperlipidemia Result Comment: PERF ORMED BY: [facility] [address] [place] [address] PATHOLOGIST [facility] CARMEN LYNCH M.D. Performed By: #### P SAS, TSH3, LIPID, CMP, CBC #### [facility] [address] Thyrotropin [Units/volume] i n Serum or PlasmaOrdered By: Griselda Krause on 10-24-2022 TSH Qn 1.26 m[IU]/L 0.45-5.33 [facility] Triglyceride [Mass/volume] i n Serum or PlasmaOrdered By: Griselda Krause on 10-24-2022 Triglyceride [Mass/Vol] 175 mg/dL 0-149 [facility] Comment on above: TRIG ATP III CLASSIF ICATIONTRIG less than 150 mg/dL NormalTRIG 150-199 mg/dL Borderline highTRIG 200-500 mg/dL High TRIG greater than 500 mg/dL Very highStandard traceable to the Center for Disease Conrtrol and Prevention (CDC) test method. Urea nitrogen [Mass/volume] in Serum or PlasmaOrdered By: Griselda Krause on 10-24-2022 Urea nitrogen [Mass/Vol] 15 mg/dL 7-25 [facility] WBC Auto (Bld) [#/Vol]Ordere d By: Griselda Krause on 10-24-2022 WBC (Bld) [#/Vol] 5.0 10*3/uL 4.1-10.5 [facility] BRIEF OP NOTon 09-28-2022 BRIEF OP NOT HNO ID: [id number] Author: Demond Cat APRN.ENROBER Service: Interventional Radiology Author Type: Nurse Practitioner Type: Brief Op Note Filed: 09/28/2022 3:14 PM Note Text: BRIEF OPERATIVE / PROCEDURE NOTE LOG ID: [id number] SURGERY/PROCEDURE DATE: 09/28/2022 INCISION/PROCEDURE START TIME: 1:58 PM INCISION CLOSE/PROCEDURE END TIME: 2:27 PM SURGEON(S)/PROCEDURALIST( S) AND [employer] IN[employer](S): Surgeon(s) and Role: * Demond Cat APRN.ENROBER - Primary No Additional Staff SURGERY/PROCEDURE(S): LP [...] DIAGNOSIS: Same as Preop SIGNATURE: Demond Cat APRN.LUCIO PATIENT NAME: Jovani Melendez DATE: September 28, 2022 TIME: 3:10 PM [facility] IR LUMBAR PUNCTURE DIAGon IR LUMBAR PUNCTURE DIAG * * *Final Report* * * DATE OF EXAM: Sep 28 2022 2:41PM [facility] [id number] - IR LUMBAR PUNCTURE DIAG [...] guidance was performed in conjunction with the outside plant technician. Plane A, Air Kerma: 20.0 mGy Dose Area Product (DAP): 78342.1 mGy*cm2 Fluoro time: 3:54 min: sec Post-Procedure: [...] procedure was performed by: Demond Cat APRN.CNP Kerrick Kleaner Operator: HARPER Transcribe Date/Time: Sep 28 2022 3:15P Dictated by : DEMOND CAT CNP This examination was interpreted and the report reviewed and electronically signed by: DEMOND CAT CNP on Sep 28 2022 3:22PM EST [id number] Normal [facility] NURSING PROGon 09-28-2022 NURSING PROG HNO ID: [id number] Author: Court Magana RN Service: Nursing Author [...] Care Provider Electronically Signed By: Court Magana [facility] MRI BRAIN WO/W IVCONon 09-22 [facility] COVID + FLU Quick Testingon 08-01-2022 SARS-CoV-2 (COVID-19) RNA JER+probe Ql (Unsp spec) Negative [employer] [facility] [employer] Other COVID + FLU Quick Testing neagative [employer] [facility] [employer] Other COVID + FLU Quick Testing Negative [employer] Other RSVon 08-01-2022 RSV Ag IA Ql (Unsp spec) Positive [employer] Other Cerebrospinal fluid post-valdez trifugation appearance determinationOrdered By: Elvi Cadena on 07-17-2022 Appearance (Spun CSF) Colorless Colorless [facility] Cerebrospinal fluid sample t ube volume measurementOrdered By: Elvi Cadena on 07-17-2022 Specimen volume (CSF) 22.0 mL [facility] Color CSFOrdered By: Elvi Cadena on 07-17-2022 Color (CSF) Colorless Colorless [facility] Manual cerebrospinal fluid e rythrocytes count (number/volume)Ordered By: Elvi Cadena on 07-17-2022 RBC Manual cnt (CSF) [#/Vol] 0 /uL [facility] Comment on above: The reference interv al and other method performance specifications have not been established for this body fluid. The test result must be integrated into the clinical context for interpretation. No Panel InformationOrdered By: Elvi Cadena on 07-17-2022 CSF Appearance Clear Clear [facility] CSF Tube Number Tube number: 1 [facility] Nucleated cells [#/volume] i n Cerebral spinal fluid by Manual countOrdered By: Elvi Cadena on 07-17-2022 Nucleated cells Manual cnt (CSF) [#/Vol] 0.003 10*3/uL 0-5 [facility] Activated partial thrombopla stin time (aPTT) in platelet poor plasma by coagulation aOrdered By: Loi Wong on 04-16-2022 aPTT Coag (PPP) [Time] 32.8 s 25.1-36.5 Fi [facility] Basophils Auto (Bld) [#/Vol] Ordered By: Loi Wong on 04-16-2022 Basophils (Bld) [#/Vol] 0.1 10*3/uL 0.0-0.2 [facility] Basophils/100 WBC Auto (Bld) Ordered By: Loi Wong on 04-16-2022 Basophils/100 WBC (Bld) 1.2 % . [facility] Creatine kinase [Enzymatic a ctivity/volume] in Serum or PlasmaOrdered By: Loi Wong on 04-16-2022 CK [Catalytic activity/Vol] 69 U/L 22-269 [facility] Creatinine and Glomerular fi ltration rate.predicted panel (S/P/Bld)Ordered By: Loi Wong on 04-16-2022 Creatinine [Mass/Vol] 0.97 mg/dL 0.64-1.27 [facility] Eosinophils Auto (Bld) [#/Vo l]Ordered By: Loi Wong on 04-16-2022 Eosinophils (Bld) [#/Vol] 0.1 10*3/uL 0.0-0.45 [facility] Eosinophils/100 WBC Auto (Bl d)Ordered By: Loi Wong on 04-16-2022 Eosinophils/100 WBC (Bld) 1.2 % . [facility] Erythrocyte distribution wid th Auto (RBC) [Ratio]Ordered By: Loi Wong on 04-16-2022 Erythrocyte distribution width (RBC) [Ratio] 14.1 % 12.0-14.8 [facility] Estimated glomerular filtrat ion rate (GFR) non- AmericanOrdered By: Loi Wong on 04-16-2022 GFR/1.73 sq M.predicted among non-blacks MDRD (S/P/Bld) [Vol rate/Area] > 60 mL/Min [facility] Hematocrit Auto (Bld) [Volum e fraction]Ordered By: Loi Wong on 04-16-2022 Hematocrit (Bld) [Volume fraction] 43.2 % 38.8-50.0 [facility] Hemoglobin [Mass/volume] in BloodOrdered By: Loi Wong on 04-16-2022 Hemoglobin (Bld) [Mass/Vol] 14.7 g/dL 13.0-17.0 [facility] Laboratory - Chemistry and C hemistry - challengeOrdered By: Loi Wong on 04-16-2022 Natriuretic peptide B (Bld) [Mass/Vol] 29.0 pg/mL 5-100 [facility] Laboratory - CoagulationOrde red By: Loi Wong on 04-16-2022 PT Coag (PPP) [Time] 12.0 s 9.0-12.9 [facility] Laboratory - Hematology and Cell countsOrdered By: Loi Wong on 04-16-2022 Nucleated RBC/100 WBC (Bld) [Ratio] 0.1 % 0-0.5 [facility] Leukocytes [#/volume] in Blo od by Automated countOrdered By: Loi Wong on 04-16-2022 WBC (Bld) [#/Vol] 7.7 10*3/uL 4.5-11.0 [facility] Lymphocytes Auto (Bld) [#/Vo l]Ordered By: Loi Wong on 04-16-2022 Lymphocytes (Bld) [#/Vol] 2.3 10*3/uL 1.00-4.8 [facility] Lymphocytes/100 WBC Auto (Bl d)Ordered By: Loi Wong on 04-16-2022 Lymphocytes/100 WBC (Bld) 29.4 % . [facility] MCH Auto (RBC) [Entitic mass ]Ordered By: Loi Wong on 04-16-2022 MCH (RBC) [Entitic mass] 32.0 pg 27.5-35.2 [facility] MCHC Auto (RBC) [Mass/Vol]Or dered By: Loi Wong on 04-16-2022 MCHC (RBC) [Mass/Vol] 34.0 g/dL 32.5-35.6 [facility] MCV Auto (RBC) [Entitic vol] Ordered By: Loi Wong on 04-16-2022 MCV (RBC) [Entitic vol] 94.0 fL 83.5-101 [facility] Monocytes Auto (Bld) [#/Vol] Ordered By: Loi Wong on 04-16-2022 Monocytes (Bld) [#/Vol] 0.6 10*3/uL 0.0-0.8 [facility] Monocytes/100 WBC Auto (Bld) Ordered By: Loi Wong on 04-16-2022 Monocytes/100 WBC (Bld) 7.7 % . [facility] Neutrophils Auto (Bld) [#/Vo l]Ordered By: Loi Wong on 04-16-2022 Neutrophils (Bld) [#/Vol] 4.7 10*3/uL 1.8-7.7 [facility] Neutrophils/100 WBC Auto (Bl d)Ordered By: Loi Wong on 04-16-2022 Neutrophils/100 WBC (Bld) 60.5 % . [facility] No Panel InformationOrdered By: Loi Wong on 04-16-2022 D-Dimer Quantitative (PE/DVT) < 200 ng/mL 0-243 [facility] Comment on above: The reference range for [...] conditions. Estimated GFR () > 60 mL/Min [facility] Comment on above: GFR estimated refere nce range: According to KDOQI guidelines, <60 ml/min/1.73m2 is sufficient to diagnose a patient with chronic kidney disease. Pharmacy Creatinine Clearance (Chem 79.33 [facility] Platelet mean volume Auto (B ld) [Entitic vol]Ordered By: Loi Wong on 04-16-2022 Platelet mean volume (Bld) [Entitic vol] 9.7 fL 6.6-10.1 [facility] Platelet poor plasma interna tional normalized ratio (INR) by coagulation assay (relatOrdered By: Loi Wong on 04-16-2022 INR Coag (PPP) [Relative time] 1.1 {INR} [facility] Comment on above: INR Therapeutic Rang e [...] 04-16-2022 Platelets (Bld) [#/Vol] 238 10*3/uL 150-450 [facility] RBC Auto (Bld) [#/Vol]Ordere d By: Loi Wong on 04-16-2022 RBC (Bld) [#/Vol] 4.59 10*6/uL 3.90-5.60 [facility] Serum or plasma anion gap de terminationOrdered By: Loi Wong on 04-16-2022 Anion gap [Moles/Vol] 12.4 mmol/L 6.0-15.0 [facility] Serum or plasma calcium paramjit urement (mass/volume)Ordered By: Loi Wong on 04-16-2022 Calcium [Mass/Vol] 9.0 mg/dL 8.2-10.2 [facility] Serum or plasma chloride robby surement (moles/volume)Ordered By: Loi Wong on 04-16-2022 Chloride [Moles/Vol] 103 mmol/L 95-114 [facility] Serum or plasma creatine kin ase MB (CKMB)/total creatine kinase (CK) ratio by calculaOrdered By: Loi Wong on 04-16-2022 CK.MB Calc [Catalytic fraction] 2.0 % 0.00-2.50 [facility] Serum or plasma creatine kin ase MB measurement (mass/volume)Ordered By: Loi Wong on 04-16-2022 CK.MB [Mass/Vol] 1.4 ng/mL 0.6-6.3 [facility] Serum or plasma glucose paramjit urement (mass/volume)Ordered By: Loi Wong on 04-16-2022 Glucose [Mass/Vol] 88 mg/dL 70-100 [facility] Comment on above: ADA recommended refe rence rangeRandom Glucose Reference Range is dependent on time and content of last meal. Glucose of more than 200 mg/dL in a nonstressed, ambulatory subject supports the diagnosis of Diabetes Mellitus. Serum or plasma potassium me asurement (moles/volume)Ordered By: Loi Wong on 04-16-2022 Potassium [Moles/Vol] 4.3 mmol/L 3.5-5.1 [facility] Serum or plasma sodium measu rement (moles/volume)Ordered By: Loi Wong on 04-16-2022 Sodium [Moles/Vol] 135 mmol/L 136-146 [facility] Serum or plasma total carbon dioxide measurement (moles/volume)Ordered By: Loi Wong on 04-16-2022 CO2 [Moles/Vol] 23.9 mmol/L 22.0-30.0 [facility] Serum or plasma urea nitroge n measurement (mass/volume)Ordered By: Loi Wong on 04-16-2022 Urea nitrogen [Mass/Vol] 12 mg/dL 9-23 [facility] Troponin I.cardiac [Mass/vol ume] in Serum or Plasma by High sensitivity methodOrdered By: Loi Wong on 04-16-2022 Troponin I.cardiac High sensitivity method [Mass/Vol] 5 pg/mL 0-20 [facility] COVID Quick Testingon 2021 Result Negative [employer] Other Quick Fluon 03-16-2022 FLUAV Ab CF (S) [Titer] Negative [employer] Other FLUBV Ab CF (S) [Titer] Negative [employer] Other MRI Brain w/o + w/on 022 [...] by Jillian Morales on 01/18/2022 1413 Normal [facility] Cell Count + Differential, C SFon 11-07-2021 WBC (Bld) [#/Vol] 0.006 10*3/uL above high threshold 0 - 5 [facility] Work Phone: [phone] Cell Count + Differential, CSF 70 1 [facility] Work Phone: [phone] Cell Count + Differential, CSF 10 % [facility] Work Phone: Cell Count + Differential, CSF [...] Phone: [phone] Albumin [Mass/Vol] 4578 mg/dL [phone] [facility] Work Phone: [phone] IgG (CSF) [Mass/Vol] 2.2 mg/dL 0.0-6.0 [facility] Work Phone: [phone] IgG [Mass/Vol] 496 mg/dL below low threshold [phone] [facility] Work Phone: [phone] Comment on above: REFERENCE INTERVAL: Immunoglobulin GAccess complete set of age- and/or gender-specific reference intervals for this test in the [facility] Test Directory ([employer]). IgG clearance/Albumin clearance (S+CSF) [Ratio] 0.56 {ratio} 0.28-0.66 [facility] Work Phone: [phone] IgG synthesis rate Calc (S+CSF) [Mass/Time] 0.5 mg/d <=8.0 [facility] Work Phone: [phone] IgG/Albumin (CSF) [Mass ratio] 0.06 {ratio} below low threshold 0.09-0.25 [facility] Work Phone: [phone] Oligoclonal bands Elph [...] sclerosis will have a negative result.Performed By: [facility] [place] [address] [id number] Director: Paula Middleton MD Albumin (CSF) [Mass/Vol] Canceled [facility] Work Phone: [phone] Albumin [Mass/Vol] Canceled [facility] [employer] Work Phone: [phone] Glucose (CSF) [Mass/Vol] 56 mg/dL 40 - 70 [facility] Work Phone: [phone] IgG (CSF) [Mass/Vol] Canceled [facility] [employer] Work Phone: [phone] IgG [Mass/Vol] Canceled [facility] [employer] Work Phone: [phone] IgG clearance/Albumin clearance (S+CSF) [Ratio] Canceled [facility] Work Phone: [phone] IgG synthesis rate Calc (S+CSF) [Mass/Time] Canceled [facility] Work Phone: [phone] IgG/Albumin (CSF) [Mass ratio] Canceled [facility] Work Phone: [phone] Oligoclonal bands Elph (CSF) [Interp] Canceled [facility] Work Phone: [phone] Oligoclonal bands Elph Curtis (CSF) [Interp] Canceled [facility] Work Phone: [phone] Protein (CSF) [Mass/Vol] 66 mg/dL above high threshold 15 - 45 [facility] Work Phone: [phone] No Panel Informationon 11-07 0 {Bands} 0-1 [facility] Work Phone: [phone] [facility] Work Phone: [phone] Canceled [facility] Work Phone: [phone] Path Review, CSFon 2 Path Review, CSF RHAILEE [facility] Work Phone: [phone] Comment on above: By her/his signature above, the Pathologist listed as making the final interpretation certifies that she/he has personally reviewed this case. HEMORRHAGIC SPECIMEN, NO MALIGNANT CELLS IDENTIFIED. 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 In [...] He saw Dr. Ba a neurologist in [facility]. He describes his vision as [...] Tablet Vitals Vital Signs Recorded: 03Nov2021 09:38AM Kkvuuxsnkzj37.2 F Heart Rate63 Jihabaifmfs85 Vvibmtqr461 Jhhkdshzk72 Blood Pressure Cuff SizeAdult Height5 ft 7.13 in Cuedpt307 lb 6 oz BMI Uxyytokste75.05 kg/m2 BSA Calculated1.91 Tobacco Usea) Yes Fall Screeninga) No falls within the last year O2 Gwjwyxuonk67 Pain Scale7 Physical Exam Constitutional - General appearance: No acute distress, well de (more content not included)... 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 In [...] Rodrigez for diagnosis. I have asked Katja oCrdoba to see the patient and she will [...] He saw Dr. Ba a neurologist in [facility]. He describes his vision as [...] MG Oral Tablet Vitals Vital Signs Recorded: [id number] 09:38AM Hwjexulvxgd14.2 F Heart Rate63 Donhxlijdzq11 Ibxnaefk436 Fhgtonaxi53 Blood Pressure Cuff SizeAdult Height5 ft 7.13 in Shkoee692 lb 6 oz BMI Aabluiyfaw71.05 kg/m2 BSA Calculated1.91 Tobacco Usea) Yes Fall Screeninga) No falls within the last year O2 Vofadrvlxd52 Pain Scale7 Ph (more content not included)... Normal [facility] COVID + FLU Quick Testingon 06-30-2021 SARS-CoV-2 (COVID-19) RNA JER+probe Ql (Unsp spec) Negative [employer] Other COVID + FLU Quick Testing Negative [employer] Other COVID Quick Testingon 2020 Result Negative [employer] Other Basophils Auto (Bld) [#/Vol] on 09-20-2020 Basophils (Bld) [#/Vol] 0.0 10*3/uL 0.0-0.2 [facility] Basophils/100 WBC Auto (Bld) on 09-20-2020 Basophils/100 WBC (Bld) 0.6 % [facility] Blood hemoglobin measurement (mass/volume)on 09-20-2020 Hemoglobin (Bld) [Mass/Vol] 14.4 g/dL 13.0-17.0 [facility] Blood leukocytes automated c ount (number/volume)on 09-20-2020 WBC (Bld) [#/Vol] 7.4 10*3/uL 4.5-11.0 [facility] Eosinophils Auto (Bld) [#/Vo l]on 09-20-2020 Eosinophils (Bld) [#/Vol] 0.1 10*3/uL 0.0-0.45 [facility] Eosinophils/100 WBC Auto (Bl d)on 09-20-2020 Eosinophils/100 WBC (Bld) 0.9 % [facility] Erythrocyte distribution wid th Auto (RBC) [Ratio]on 09-20-2020 Erythrocyte distribution width (RBC) [Ratio] 14.6 % 12.0-14.8 [facility] Hematocrit Auto (Bld) [Volum e fraction]on 09-20-2020 Hematocrit (Bld) [Volume fraction] 41.7 % 38.8-50.0 [facility] Lymphocytes Auto (Bld) [#/Vo l]on 09-20-2020 Lymphocytes (Bld) [#/Vol] 1.6 10*3/uL 1.00-4.8 [facility] Lymphocytes/100 WBC Auto (Bl d)on 09-20-2020 Lymphocytes/100 WBC (Bld) 21.3 % [facility] MCH Auto (RBC) [Entitic mass ]on 09-20-2020 MCH (RBC) [Entitic mass] 32.4 pg 27.5-35.2 [facility] MCHC Auto (RBC) [Mass/Vol]on 09-20-2020 MCHC (RBC) [Mass/Vol] 34.5 g/dL 32.5-35.6 [facility] MCV Auto (RBC) [Entitic vol] on 09-20-2020 MCV (RBC) [Entitic vol] 93.9 fL 83.5-101 [facility] Monocytes Auto (Bld) [#/Vol] on 09-20-2020 Monocytes (Bld) [#/Vol] 0.6 10*3/uL 0.0-0.8 [facility] Monocytes/100 WBC Auto (Bld) on 09-20-2020 Monocytes/100 WBC (Bld) 8.6 % [facility] Neutrophils Auto (Bld) [#/Vo l]on 09-20-2020 Neutrophils (Bld) [#/Vol] 5.1 10*3/uL 1.8-7.7 [facility] Neutrophils/100 WBC Auto (Bl d)on 09-20-2020 Neutrophils/100 WBC (Bld) 68.6 % [facility] Otheron 09-20-2020 Nucleated RBC/100 WBC (Bld) [Ratio] 0.0 % 0-0.5 [facility] Platelet mean volume Auto (B ld) [Entitic vol]on 09-20-2020 Platelet mean volume (Bld) [Entitic vol] 9.3 fL 6.6-10.1 [facility] Platelets Auto (Bld) [#/Vol] on 09-20-2020 Platelets (Bld) [#/Vol] 182 10*3/uL 150-450 [facility] RBC Auto (Bld) [#/Vol]on RBC (Bld) [#/Vol] 4.44 10*6/uL 3.90-5.60 [facility] Body fluid albumin measureme nt (mass/volume)on 09-13-2020 Albumin (Body fld) [Mass/Vol] 4.3 g/dL 3.2-5.5 [facility] Cholesterol [Mass/volume] in Serum or Plasmaon 09-13-2020 Cholesterol [Mass/Vol] 219 mg/dL 140-200 Fi [facility] Comment on above: Chol less than 200 m g/dl low riskChol 201-239 mg/dl borderline riskChol 240 mg/dl and greater high risk Cholesterol in LDL Calc [Mas s/Vol]on 09-13-2020 Cholesterol in LDL [Mass/Vol] 149 mg/dL 0-100 [facility] Comment on above: LDL ATP III CLASSIFI CATIONLDL less than 100 mg/dL OptimalLDL 100-129 mg/dL Near or above optimalLDL 130-159 mg/dL Borderline highLDL 160-189 mg/dL HighLDL greater than 189 mg/dL Very high Cholesterol in VLDL Calc [Ma ss/Vol]on 09-13-2020 Cholesterol in VLDL [Mass/Vol] 28 mg/dL [facility] Creatinine and Glomerular fi ltration rate.predicted panel (S/P/Bld)on 09-13-2020 Creatinine [Mass/Vol] 0.89 mg/dL 0.64-1.27 [facility] GFR/1.73 sq M.predicted roverto g non-blacks MDRD (S/P/Bld) [Vol rate/Area]on 09-13-2020 GFR/1.73 sq M predicted among non-blacks MDRD (S/P/Bld) [Vol rate/Area] > 60 mL/Min [facility] Globulin Calc (S) [Mass/Vol] on 09-13-2020 Globulin (S) [Mass/Vol] 2.0 g/dL [facility] No Panel Informationon 09-13 Estimated GFR () > 60 mL/Min [facility] Comment on above: GFR estimated refere nce range: According to KDOQI guidelines, <60 ml/min/1.73m2 is sufficient to diagnose a patient with chronic kidney disease. Otheron 09-13-2020 GFR/1.73 sq M.predicted MDRD (S/P/Bld) [Vol rate/Area] > 60 mL/Min [facility] Comment on above: GFR estimated refere nce range: According to KDOQI guidelines, <60 ml/min/1.73m2 is sufficient to diagnose a patient with chronic kidney disease. Pharmacy Creatinine Clearance (Chem N/A [facility] Prostate Specific Antigen Screen 0.480 ng/mL 0.000-4.00 0 [facility] Protein [Mass/volume] in Ser um or Plasmaon 09-13-2020 Protein [Mass/Vol] 6.3 g/dL 6.1-7.9 [facility] SARS-CoV-2 (COVID-19) IgG Ab [Presence] in Serum or Plasma by Immunoassayon 09-13-2020 SARS-CoV-2 (COVID-19) IgG Ab [Presence] in Serum or Plasma by Immunoassay Positive Negative [facility] Comment on above: Results suggest rece nt or prior infection with SARS-CoV-2.Correlation with epidemiologic risk factors and otherclinical and laboratory findings is recommended. Serologicresults should not be used as the sole basis to diagnose orexclude recent SARS-CoV-2 infection. False positive resultsinfrequently occur due to prior infection with other humanCoronaviruses.This assay was performed using the [employer] Liaison(R)SARS-CoV-2 S1/S2 IgG assay.This assay detects antibodies against SARS-CoV-2 spikeprotein including the receptor binding domain (RBD).Performed at: [facility] [address] [id number] Director: Florencio Wu PhD, Phone: [phone] SARS-CoV-2 (COVID-19) IgG IA Ql Positive Negative [facility] Comment on above: Results suggest rece nt or prior infection with SARS-CoV-2.Correlation with epidemiologic risk factors and otherclinical and laboratory findings is recommended. Serologicresults should not be used as the sole basis to diagnose orexclude recent SARS-CoV-2 infection. False positive resultsinfrequently occur due to prior infection with other humanCoronaviruses.This assay was performed using the [employer] Liaison(R)SARS-CoV-2 S1/S2 IgG assay.This assay detects antibodies against SARS-CoV-2 spikeprotein including the receptor binding domain (RBD).Performed at: [facility] [address] [id number] Director: Florencio Wu PhD, Phone: [phone] Serum or plasma alanine mclaughlin otransferase measurement without P-5'-P (enzymatic activion 09-13-2020 ALT No additional P-5'-P [Catalytic activity/Vol] 19 U/L 10-60 [facility] Serum or plasma albumin/glob ulin mass ratioon 09-13-2020 Albumin/Globulin [Mass ratio] 2.2 {ratio} [facility] Serum or plasma alkaline fuentes sphatase measurement (enzymatic activity/volume)on 09-13-2020 ALP [Catalytic activity/Vol] 53 U/L 32-92 [facility] Serum or plasma aspartate am inotransferase measurement (enzymatic activity/volume)on 09-13-2020 AST [Catalytic activity/Vol] 22 U/L 10-42 [facility] Serum or plasma calcium paramjit urement (mass/volume)on 09-13-2020 Calcium [Mass/Vol] 9.1 mg/dL 8.2-10.2 [facility] Serum or plasma chloride robby surement (moles/volume)on 09-13-2020 Chloride [Moles/Vol] 105 mmol/L 95-114 [facility] Serum or plasma glucose paramjit urement (mass/volume)on 09-13-2020 Glucose [Mass/Vol] 97 mg/dL 70-100 [facility] Comment on above: ADA recommended refe rence rangeRandom Glucose Reference Range is dependent on time and content of last meal. Glucose of more than 200 mg/dL in a nonstressed, ambulatory subject supports the diagnosis of Diabetes Mellitus. Serum or plasma high density lipoprotein (HDL) cholesterol measurementon 09-13-2020 Cholesterol in HDL [Mass/Vol] 41 mg/dL 29- [facility] Comment on above: HDL CHOL ATP-III CLA SSIFICATION Cardiovascular RiskHDL > or equal to 60 mg/dL LOWHDL < 40 mg/dL HIGH Serum or plasma potassium me asurement (moles/volume)on 09-13-2020 Potassium [Moles/Vol] 4.2 mmol/L 3.5-5.1 [facility] Serum or plasma sodium measu rement (moles/volume)on 09-13-2020 Sodium [Moles/Vol] 135 mmol/L 136-146 [facility] Serum or plasma thyroid stim ulating hormone (TSH) measurement by high sensitivity meton 09-13-2020 TSH Qn 1.66 u[iU]/mL 0.45-5.33 [facility] Serum or plasma total biliru bin measurement (mass/volume)on 09-13-2020 Bilirubin [Mass/Vol] 0.9 mg/dL 0.3-1.2 [facility] Serum or plasma total carbon dioxide measurement (moles/volume)on 03-29-2021 CO2 [Moles/Vol] 22.5 mmol/L 22.0-30.0 [facility] Serum or plasma total choles terol/high density lipoprotein (HDL) cholesterol mass gia 09-13-2020 Cholesterol.total/Chol esterol in HDL [Mass ratio] 5.3 {ratio} [facility] Serum or plasma urea nitroge n measurement (mass/volume)on 09-13-2020 Urea nitrogen [Mass/Vol] 12 mg/dL 9-23 [facility] TSH DL <= 0.005 mIU/L Qnon 0 09-13-2020 TSH Qn 1.66 m[IU]/L 0.45-5.33 [facility] Triglyceride [Mass/volume] i n Serum or Plasmaon 09-13-2020 Triglyceride [Mass/Vol] 144 mg/dL 35-149 [facility] Comment on above: TRIG ATP [...] eye. Coleen Grajeda M.D. aek Dictated: 04/14/2019 #[id number] Typed 04/14/2019 #[id number] cc: Coleen Grajeda M.D. [facility] Comment on above: Result Comment: Elec tronically Signed By: Coleen Grajeda MD.br\Date and Time Signed: 04/18/19 09:54 EDT Operative Reporton Operative Report Date of Surgery: 04/14/2019 SURGEON: [...] and inferior fornices of the eye. A GAMINSIDEan manometer was set on the eye at [...] condition. Coleen Grajeda M.D. gls Dictated: 04/14/2019 #[id number] Typed: 04/15/2019 #[id number] cc: Coleen Grajeda M.D. [facility] Comment on above: Result Comment: Elec tronically Signed By: Coleen Grajeda MD.br\Date and Time Signed: 04/18/19 09:54 EDT Coding Summary.on 04-15-2019 Coding Summary. 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 Name: JOVANI MELENDEZ/Sex: 1960 Male Med Rec #: [id number] Physician: Coleen Grajeda MD Financial #: [id number] Pt. Type: A Room/Bed: [place] [address] Admit/Disch: 04/14/19 12:59:00 - 04/14/19 16:00:00 Institution: [...] Performed Surgeon - Primary Scrub - Primary Manager Of Data - Primary Time In 04/14/19 14:55:00 04/14/19 [...] VERNON, Pauly GOODEN, RN, Tierra Role Performed Manager Of Data - Primary Manager Of Data - Relief Time In 04/14/19 14:55:00 04/14/19 [...] Unable to Visualize, Outcomes Met? Yes Warm, [place], Dry Last Modified By: Johnathon Karimi RN [...] Entry 1 Via Cart By Patrick MYERS, RNTierra Safety Precautions Side Rails Up Outcomes Met? [...] RN Patient Status Stable Skin. Condition Warm, [place], Dry Description unchanged Airway Maintenance Oxygen in Use? No Outcomes Met? Yes Last Modified By: Johnathon Karimi RN 04/14/19 15:07:48 Post-Care Text: The patient is free from signs and symptoms of injury related to transfer/transport General Comments: asu called, transported to asu by or transporter/ ktinker rn Dressing/Packing FT Pre-Care Text: Administers care [...] safely administered during the perioperative period For [place] please see scanned medication reconcilliation form for medications used at the field during the procedure. Implant Log FT Pre-Care Text: Records devices implanted during the operative or invasive procedure Entry 1 Procedure CATARACT EXTRACTION W/ Implant/Explant Implant INTRAOCULAR LENS(Left) Implant Identification FT Description MONTY IOL [id number] SO[employer]ORT Serial Number [id number] SIZE 21.0 [[id number] 21.0][F] Lot Number [id number] [employer]ement Fin[employer] Supervisor FT-[employer] Catalog ?# [id number] 21.0[F] Expiration Date 10/16/23 Unique Device [id number] Identifier (BERNARD) Usage Data FT Implant Site [...] Signed By: Johnathon Karimi RN 04/14/19 15:16 Long [place] Asya 04/15/19 14:44 Normal [facility] Inpatient Patient Summaryon 04-14-2019 Inpatient [facility] Summary [facility] Clinical Discharge Instructions PERSON INFORMATION Name: JOVANI MELENDEZ PHYSICIANS Admitting Physician: Coleen Grjaeda MD Attending Physician: Coleen Grajeda MD PCP: JILLIAN BARONE DO Discharge Diagnosis: Cataract Comment: PATIENT EDUCATION INFORMATION Instructions: Medication Leaflets: Follow up: With: Address: When: Coleen Grajeda [address], [place] [address] Business (1) Comments: Call physician if symptoms worsen Keep scheduled appointment MEDICATION LIST Comment: Normal [facility] Main OR PACU II Recordon Main OR PACU II Record PACU Phase II Doc ument Type FT Summary Primary Physician: Coleen Grajeda MD Finalized Date/Time: 04/14/19 17:54:42 Pt. Name: JOVANI MELENDEZ /Sex: 1960 Male Med Rec #: [id number] Physician: Coleen Grajeda MD Financial #: [id number] Pt. Type: A Room/Bed: [place] [address] Admit/Disch: 04/14/19 12:59:23 - Institution: Case Times [...] By: Lizeth Rush RN 04/14/19 17:54 Normal [facility] Main OR Preoperative Recordo n 04-14-2019 Main OR Preoperative Record PreOp Document Type FT Summary Primary Physician: Coleen Grajeda MD Finalized Date/Time: 04/14/19 15:14:03 Pt. Name: JOVANI MELENDEZ/Sex: 1960 Male Med Rec #: [id number] Physician: Coleen Grajeda MD Financial #: [id number] Pt. Type: A Room/Bed: [facility]/ Admit/Disch: 04/14/19 12:59:23 - Institution: Case Times [...] By: Johnathon Karimi RN 04/14/19 15:14 Normal [facility] Patient Education - Texton 1 Patient Education - Text Normal [facility] Vital Signs Date Time Vital Sign Value Performing Clinician Facility 10-29-2023 10:32-0400 Body height 172.72 cm DO Griselda Kuns Work Phone: [facility] 10-29-2023 10:32-0400 Body mass index (BMI) [Ratio] 26.6 kg/m2 DO Griselda Kuns Work Phone: [facility] 10-29-2023 10:32-0400 Body weight 79.37 kg DO Griselda Kuns Work Phone: [facility] 10-29-2023 10:32-0400 Diastolic blood pressure 82 mm[Hg] DO Griselda Kuns Work Phone: [facility] 10-29-2023 10:32-0400 Heart rate 71 /min DO Griselda Kuns Work Phone: [facility] 10-29-2023 10:32-0400 Respiratory rate 16 /min DO Griselda Kuns Work Phone: [facility] 10-29-2023 10:32-0400 SaO2% (BldA) [Mass fraction] 98 % DO Griselda Kuns Work Phone: [facility] 10-29-2023 10:32-0400 Systolic blood pressure 128 mm[Hg] DO Griselda Kuns Work Phone: [facility] 10-18-2023 09:02-0400 Diastolic blood pressure 68 mm[Hg] DO Griselda Kuns Work Phone: [facility] 10-18-2023 09:02-0400 Systolic blood pressure 132 mm[Hg] DO Griselda Kuns Work Phone: [facility] 10-18-2023 08:58-0400 Body height 172.72 cm DO Griselda Kuns Work Phone: [facility] 10-18-2023 08:58-0400 Body mass index (BMI) [Ratio] 26.6 kg/m2 DO Griselda Kuns Work Phone: [facility] 10-18-2023 08:58-0400 Body weight 79.37 kg DO Griselda Kuns Work Phone: [facility] 10-18-2023 08:58-0400 Heart rate 57 /min DO Griselda Kuns Work Phone: [facility] 10-18-2023 08:58-0400 Respiratory rate 18 /min DO Griselda Kuns Work Phone: [facility] 10-18-2023 08:58-0400 SaO2% (BldA) [Mass fraction] 98 % DO Griselda Kuns Work Phone: [facility] 10-05-2023 09:37-0400 Body height 172.2 cm Ignacia Jack MD Work Phone: [facility] 10-05-2023 09:37-0400 Body mass index (BMI) [Ratio] 26.25 kg/m2 Ignacia Jack MD Work Phone: [facility] 10-05-2023 09:37-0400 Body temperature 97.3 [degF] Ignacia Jack MD Work Phone: [facility] 10-05-2023 09:37-0400 Body weight 77.84 kg Ignacia Jack MD Work Phone: [facility] 10-05-2023 09:37-0400 Diastolic blood pressure 68 mm[Hg] Ignacia Jack MD Work Phone: [facility] 10-05-2023 09:37-0400 Heart rate 81 /min Ignacia Jack MD Work Phone: [facility] 10-05-2023 09:37-0400 Respiratory rate 16 /min Ignacia Jack MD Work Phone: [facility] 10-05-2023 09:37-0400 SaO2% (BldA) [Mass fraction] 99 % Ignacia Jack MD Work Phone: [facility] 10-05-2023 09:37-0400 Systolic blood pressure 116 mm[Hg] Ignacia Jack MD Work Phone: [facility] 09-05-2023 13:44-0400 Diastolic blood pressure 99 mm[Hg] DO Griselda Kuns Work Phone: [facility] 09-05-2023 13:44-0400 Systolic blood pressure 160 mm[Hg] DO Griselda Kuns Work Phone: [facility] 09-05-2023 13:41-0400 Body height 172.72 cm DO Griselda Kuns Work Phone: [facility] 09-05-2023 13:41-0400 Body mass index (BMI) [Ratio] 27.8 kg/m2 DO Griselda Kuns Work Phone: [facility] 09-05-2023 13:41-0400 Body weight 83 kg DO Griselda Kuns Work Phone: [facility] 09-05-2023 13:41-0400 Heart rate 66 /min DO Griselda Kuns Work Phone: [facility] 09-05-2023 13:41-0400 Respiratory rate 18 /min DO Griselda Kuns Work Phone: [facility] 09-05-2023 13:41-0400 SaO2% (BldA) [Mass fraction] 99 % DO Griselda Kuns Work Phone: [facility] 09-05-2023 11:58-0400 Body height 172.72 cm DO Griselda Kuns Work Phone: [facility] 09-05-2023 11:58-0400 Body mass index (BMI) [Ratio] 27.3 kg/m2 DO Griselda Kuns Work Phone: [facility] 09-05-2023 11:58-0400 Body temperature 97.8 [degF] DO Griselda Kuns Work Phone: [facility] 09-05-2023 11:58-0400 Body weight 81.64 kg DO Griselda Kuns Work Phone: [facility] 09-05-2023 11:58-0400 Diastolic blood pressure 92 mm[Hg] DO Griselda Kuns Work Phone: [facility] 09-05-2023 11:58-0400 Heart rate 71 /min DO Griselda Kuns Work Phone: [facility] 09-05-2023 11:58-0400 SaO2% (BldA) [Mass fraction] 96 % DO Griselda Kuns Work Phone: [facility] 09-05-2023 11:58-0400 Systolic blood pressure 160 mm[Hg] DO Griselda Kuns Work Phone: [facility] 08-15-2023 15:41-0500 Body height 172.72 cm DO Griselda Kuns Work Phone: [facility] 08-15-2023 15:41-0500 Body mass index (BMI) [Ratio] 28.1 kg/m2 DO Griselda Kuns Work Phone: [facility] 08-15-2023 15:41-0500 Body weight 84.08 kg DO Griselda Kuns Work Phone: [facility] 08-15-2023 15:41-0500 Diastolic blood pressure 72 mm[Hg] DO Griselda Kuns Work Phone: [facility] 08-15-2023 15:41-0500 Heart rate 62 /min DO Griselda Kuns Work Phone: [facility] 08-15-2023 15:41-0500 Respiratory rate 18 /min DO Griselda Kuns Work Phone: [facility] 08-15-2023 15:41-0500 SaO2% (BldA) [Mass fraction] 99 % DO Griselda Kuns Work Phone: [facility] 08-15-2023 15:41-0500 Systolic blood pressure 128 mm[Hg] DO Griselda Kuns Work Phone: [facility] 08-02-2023 13:11-0500 Body height 172.72 cm DO Griselda Kuns Work Phone: [facility] 08-02-2023 13:11-0500 Body mass index (BMI) [Ratio] 27.9 kg/m2 DO Griselda Kuns Work Phone: [facility] 08-02-2023 13:11-0500 Body weight 83.46 kg DO Griselda Kuns Work Phone: [facility] 08-02-2023 13:11-0500 Diastolic blood pressure 70 mm[Hg] DO Griselda Kuns Work Phone: [facility] 08-02-2023 13:11-0500 Heart rate 68 /min DO Griselda Kuns Work Phone: [facility] 08-02-2023 13:11-0500 Respiratory rate 16 /min DO Griselda Kuns Work Phone: [facility] 08-02-2023 13:11-0500 SaO2% (BldA) [Mass fraction] 97 % DO Griselda Kuns Work Phone: [facility] 08-02-2023 13:11-0500 Systolic blood pressure 130 mm[Hg] DO Griselda Kuns Work Phone: [facility] 07-02-2023 09:30-0500 Body height 172.72 cm Griselda Kuns Other [facility] 07-02-2023 09:30-0500 Body mass index (BMI) [Ratio] 28.28 kg/m2 Griselda Kuns Other [employer] Other 07-02-2023 09:30-0500 Body weight 84.37 kg Griselda Kuns Other [employer] Other 07-02-2023 09:30-0500 Body weight 84.36 kg DO Griselda Kuns Work Phone: [facility] 07-02-2023 09:30-0500 Diastolic blood pressure 92 mm[Hg] Griselda Kuns Other [facility] 07-02-2023 09:30-0500 Respiratory rate 16 /min Griselda Kuns Other [employer] Other 07-02-2023 09:30-0500 SaO2% (BldA) [Mass fraction] 97 % Griselda Kuns Other [employer] Other 07-02-2023 09:30-0500 Systolic blood pressure 160 mm[Hg] Griselda Kuns Other [facility] 05-31-2023 13:45-0500 Body height 172.72 cm Griselda Kuns Other [facility] 05-31-2023 13:45-0500 Body mass index (BMI) [Ratio] 27.37 kg/m2 Griselda Kuns Other [employer] Other 05-31-2023 13:45-0500 Body weight 81.65 kg Griselda Kuns Other [employer] Other 05-31-2023 13:45-0500 Body weight 81.64 kg DO Griselda Krause Work Phone: [facility] 05-31-2023 13:45-0500 Diastolic blood pressure 80 mm[Hg] Griseldakeith Mendezs Other [facility] 05-31-2023 13:45-0500 Respiratory rate 18 /min Griselda Krause Other [facility] [employer] Other 05-31-2023 13:45-0500 SaO2% (BldA) [Mass fraction] 98 % Griselda Krause Other [facility] [employer] Other 05-31-2023 13:45-0500 Systolic blood pressure 120 mm[Hg] Griselda Mendezs Other [facility] 05-30-2023 11:15-0500 Body height 172.72 cm Ruddy Harvey Other [facility] 05-30-2023 11:15-0500 Body mass index (BMI) [Ratio] 27.52 kg/m2 Ruddy Harvey Other [facility] [employer] Other 05-30-2023 11:15-0500 Body temperature 97.8 [degF] Ruddy Harvey Other [facility] [employer] Other 05-30-2023 11:15-0500 Body weight 82.1 kg Ruddy Harvey Other [facility] 05-30-2023 11:15-0500 SaO2% (BldA) [Mass fraction] 98 % Ruddy Harvey Other [facility] [employer] Other 05-15-2023 13:20-0500 Body height 172.72 cm Lilliam Cason Other [facility] 05-15-2023 13:20-0500 Body mass index (BMI) [Ratio] 27.52 kg/m2 Lilliam Cason Other [employer] Other 05-15-2023 13:20-0500 Body weight 82.1 kg Lilliam Cason Other [facility] 05-15-2023 13:20-0500 Diastolic blood pressure 84 mm[Hg] Lilliam Cason Other [facility] 05-15-2023 13:20-0500 Respiratory rate 18 /min Lilliam Cason Other [employer] Other 05-15-2023 13:20-0500 SaO2% (BldA) [Mass fraction] 98 % Lilliam Cason Other [employer] [facility] [employer] Other 05-15-2023 13:20-0500 Systolic blood pressure 142 mm[Hg] Lilliam Cason Other [facility] 05-07-2023 13:16-0500 Diastolic blood pressure 78 mm[Hg] DO Griselda [employer] Work Phone: [facility] 05-07-2023 13:16-0500 Heart rate 75 /min DO Griselda [employer] Work Phone: [facility] 05-07-2023 13:16-0500 Respiratory rate 16 /min DO Griselda Kuns Work Phone: [facility] 05-07-2023 13:16-0500 SaO2% (BldA) [Mass fraction] 96 % DO Griselda Kuns Work Phone: [facility] 05-07-2023 13:16-0500 Systolic blood pressure 135 mm[Hg] DO Griselda Kuns Work Phone: [facility] 05-07-2023 10:30-0500 Inhaled oxygen flow rate 3 L/min DO Griselda Kuns Work Phone: [facility] 05-07-2023 08:29-0500 Body height 172.72 cm DO [employer] Work Phone: [facility] 05-07-2023 08:29-0500 Body weight 79.37 kg DO [employer] Work Phone: [facility] 05-03-2023 09:15-0500 Body height 172.72 cm Ruddy Harvey Other [employer] Other 05-03-2023 09:15-0500 Body mass index (BMI) [Ratio] 27.06 kg/m2 Ruddy Harvey Other [employer] Other 05-03-2023 09:15-0500 Body temperature 97.8 [degF] Ruddy Harvey Other [employer] Other 05-03-2023 09:15-0500 Body weight 80.74 kg Ruddy Harvey Other [employer] Other 05-03-2023 09:15-0500 Diastolic blood pressure 78 mm[Hg] Ruddy Harvey Other [employer] Other 05-03-2023 09:15-0500 SaO2% (BldA) [Mass fraction] 97 % Ruddy Harvey Other [employer] Other 05-03-2023 09:15-0500 Systolic blood pressure 146 mm[Hg] Ruddy Harvey Other [employer] Other 05-01-2023 10:30-0500 Body height 172.72 cm [employer] Other [employer] Other 05-01-2023 10:30-0500 Body mass index (BMI) [Ratio] 27.06 kg/m2 Griseldakeith Mendezs Other [employer] Other 05-01-2023 10:30-0500 Body weight 80.74 kg Griselda Kuns Other [employer] Other 05-01-2023 10:30-0500 Diastolic blood pressure 80 mm[Hg] Griselda Kuns Other [employer] Other 05-01-2023 10:30-0500 Respiratory rate 18 /min Griselda Andreas Other [employer] Other 05-01-2023 10:30-0500 SaO2% (BldA) [Mass fraction] 96 % Griseldakeith Mendezs Other [employer] Other 05-01-2023 10:30-0500 Systolic blood pressure 144 mm[Hg] Griselda Kuns Other [employer] Other 04-11-2023 10:40-0400 Body height 172.72 cm Lilliam Kamla Other [employer] Other 04-11-2023 10:40-0400 Body mass index (BMI) [Ratio] 26.67 kg/m2 Lilliam Kamla Other [employer] Other 04-11-2023 10:40-0400 Body weight 79.56 kg Lilliam Kamla Other [employer] Other 04-11-2023 10:40-0400 Diastolic blood pressure 80 mm[Hg] Lilliam Kamla Other [employer] [facility] [employer] Other 04-11-2023 10:40-0400 SaO2% (BldA) [Mass fraction] 96 % Lilliam Cason Other [employer] Other 04-11-2023 10:40-0400 Systolic blood pressure 148 mm[Hg] Lilliam Cason Other [facility] [employer] Other 03-21-2023 02:42-0400 Diastolic blood pressure 98 mm[Hg] DO Griselda Kuns Work Phone: [facility] 03-21-2023 02:42-0400 Heart rate 72 /min DO Griselda Kuns Work Phone: [facility] 03-21-2023 02:42-0400 Respiratory rate 16 /min DO Griselda Kuns Work Phone: [facility] 03-21-2023 02:42-0400 SaO2% (BldA) [Mass fraction] 97 % DO Griselda Kuns Work Phone: [facility] 03-21-2023 02:42-0400 Systolic blood pressure 170 mm[Hg] DO Griselda Kuns Work Phone: [facility] 03-21-2023 00:12-0400 Body height 172.72 cm DO Griselda Kuns Work Phone: [facility] 03-21-2023 00:12-0400 Body temperature 98 [degF] DO Griselda Kuns Work Phone: [facility] 03-21-2023 00:12-0400 Body weight 79.37 kg DO Griselda Kuns Work Phone: [facility] 03-15-2023 10:30-0400 Body height 172.72 cm [employer] Other [facility] [employer] Other 03-15-2023 10:30-0400 Body mass index (BMI) [Ratio] 26.76 kg/m2 Griselda Kuns Other [employer] Other 03-15-2023 10:30-0400 Body weight 79.83 kg Griselda Kuns Other [employer] Other 03-15-2023 10:30-0400 Diastolic blood pressure 86 mm[Hg] Griselda Kuns Other [employer] Other 03-15-2023 10:30-0400 Respiratory rate 16 /min Griselda Kuns Other [employer] Other 03-15-2023 10:30-0400 SaO2% (BldA) [Mass fraction] 97 % Griselda Kuns Other [employer] Other 03-15-2023 10:30-0400 Systolic blood pressure 174 mm[Hg] Griselda Kuns Other [employer] Other 03-08-2023 10:00-0400 Body height 172.72 cm Griselda Kuns Other [employer] Other 03-08-2023 10:00-0400 Body mass index (BMI) [Ratio] 27.18 kg/m2 Griselda Kuns Other [employer] Other 03-08-2023 10:00-0400 Body weight 81.1 kg Griselda Kuns Other [employer] Other 03-08-2023 10:00-0400 Diastolic blood pressure 82 mm[Hg] Griselda Kuns Other [employer] Other 03-08-2023 10:00-0400 Respiratory rate 16 /min Griselda Kuns Other [employer] Other 03-08-2023 10:00-0400 SaO2% (BldA) [Mass fraction] 96 % Griselda Kuns Other [employer] Other 03-08-2023 10:00-0400 Systolic blood pressure 118 mm[Hg] Griselda Kuns Other [facility] Other 02-26-2023 14:13-0400 Body height 172.72 cm DO Griselda Kuns Work Phone: [facility] 02-26-2023 14:13-0400 Body temperature 98 [degF] DO Griselda Kuns Work Phone: [facility] 02-26-2023 14:13-0400 Body weight 78.6 kg DO Griselda Kuns Work Phone: [facility] 02-26-2023 14:13-0400 Diastolic blood pressure 77 mm[Hg] DO Griselda Kuns Work Phone: [facility] 02-26-2023 14:13-0400 Heart rate 56 /min DO Griselda Kuns Work Phone: [facility] 02-26-2023 14:13-0400 Respiratory rate 18 /min DO Griselda Kuns Work Phone: [facility] 02-26-2023 14:13-0400 SaO2% (BldA) [Mass fraction] 96 % DO Griselda Kuns Work Phone: [facility] 02-26-2023 14:13-0400 Systolic blood pressure 142 mm[Hg] DO Griselda Kuns Work Phone: [facility] 12-05-2022 10:15-0400 Body height 172.72 cm Griseldakeith Mendezs Other [employer] Other 12-05-2022 10:15-0400 Body mass index (BMI) [Ratio] 25.85 kg/m2 Griseldakeith Mendezs Other [employer] Other 12-05-2022 10:15-0400 Body weight 77.11 kg Griselda Andreas Other [employer] Other 12-05-2022 10:15-0400 Diastolic blood pressure 80 mm[Hg] Griselda Andreas Other [employer] Other 12-05-2022 10:15-0400 Respiratory rate 16 /min Griseldakeith Mendezs Other [employer] Other 12-05-2022 10:15-0400 SaO2% (BldA) [Mass fraction] 96 % Griseldakeith Mendezs Other [employer] Other 12-05-2022 10:15-0400 Systolic blood pressure 140 mm[Hg] Griselda Andreas Other [employer] Other 09-13-2022 10:57-0400 Body height 170.6 cm Kelly Perez PA-C Work Phone: [facility] 09-13-2022 10:57-0400 Body temperature 97.39 [degF] Kelly Perez PA-C Work Phone: [facility] 09-13-2022 10:57-0400 Body weight 77.34 kg Kelly Perez PA-C Work Phone: [facility] 09-13-2022 10:57-0400 Diastolic blood pressure 61 mm[Hg] Kelly Jakubek PA-C Work Phone: [facility] 09-13-2022 10:57-0400 Heart rate 70 /min Kelly Perez PA-C Work Phone: [facility] 09-13-2022 10:57-0400 Respiratory rate 18 /min Kelly Perez PA-C Work Phone: [facility] 09-13-2022 10:57-0400 SaO2% (BldA) [Mass fraction] 100 % Kelly Perez PA-C Work Phone: [facility] 09-13-2022 10:57-0400 Systolic blood pressure 133 mm[Hg] Kelly Perez PA-C Work Phone: [facility] 08-31-2022 11:15-0400 Body height 172.72 cm [employer] Other [employer] Other 08-31-2022 11:15-0400 Body mass index (BMI) [Ratio] 26.79 kg/m2 [employer] Other [employer] Other 08-31-2022 11:15-0400 Body weight 79.92 kg [employer] Other [employer] Other 08-31-2022 11:15-0400 Diastolic blood pressure 78 mm[Hg] [employer] Other [employer] Other 08-31-2022 11:15-0400 Respiratory rate 16 /min [employer] Other [employer] Other 08-31-2022 11:15-0400 SaO2% (BldA) [Mass fraction] 98 % [employer] Other [employer] Other 08-31-2022 11:15-0400 Systolic blood pressure 138 mm[Hg] Griselda Kuns Other [employer] Other 08-01-2022 10:30-0500 Body height 172.72 cm Griselda Kuns Other [employer] Other 08-01-2022 10:30-0500 Body mass index (BMI) [Ratio] 27.27 kg/m2 Griselda Kuns Other [employer] Other 08-01-2022 10:30-0500 Body weight 81.38 kg Griselda Kuns Other [employer] Other 08-01-2022 10:30-0500 Diastolic blood pressure 82 mm[Hg] Griselda Kuns Other [employer] Other 08-01-2022 10:30-0500 Respiratory rate 16 /min Griselda Kuns Other [employer] Other 08-01-2022 10:30-0500 SaO2% (BldA) [Mass fraction] 99 % Griselda Kuns Other [employer] Other 08-01-2022 10:30-0500 Systolic blood pressure 146 mm[Hg] Griselda Kuns Other [employer] Other 07-17-2022 09:45-0500 Diastolic blood pressure 98 mm[Hg] DO Griselda Kuns Work Phone: [facility] 07-17-2022 09:45-0500 Heart rate 69 /min DO Griselda Kuns Work Phone: [facility] 07-17-2022 09:45-0500 Respiratory rate 16 /min DO Griselda Kuns Work Phone: [facility] 07-17-2022 09:45-0500 SaO2% (BldA) [Mass fraction] 99 % DO Griselda Kuns Work Phone: [facility] 07-17-2022 09:45-0500 Systolic blood pressure 144 mm[Hg] DO Griselda Kuns Work Phone: [facility] 07-17-2022 07:58-0500 Body height 172.72 cm DO Griselda Kuns Work Phone: [facility] 07-17-2022 07:58-0500 Body weight 79.37 kg DO Griselda Kuns Work Phone: [facility] 06-28-2022 10:20-0500 Body height 172.72 cm Trish Blades Other [employer] Other 06-28-2022 10:20-0500 Body mass index (BMI) [Ratio] 26.67 kg/m2 Trish Blades Other [employer] Other 06-28-2022 10:20-0500 Body weight 79.56 kg Trish Blades Other [employer] Other 06-28-2022 10:20-0500 Diastolic blood pressure 80 mm[Hg] Trish Blades Other [employer] Other 06-28-2022 10:20-0500 Systolic blood pressure 140 mm[Hg] Trish Blades Other [employer] Other 05-26-2022 13:30-0500 Body height 172.72 cm Griselda [employer] Other [employer] Other 05-26-2022 13:30-0500 Body mass index (BMI) [Ratio] 26.7 kg/m2 Griselda Kuns Other [employer] Other 05-26-2022 13:30-0500 Body weight 79.65 kg Griselda Kuns Other [employer] Other 05-26-2022 13:30-0500 Diastolic blood pressure 82 mm[Hg] Griselda Kuns Other [employer] Other 05-26-2022 13:30-0500 Respiratory rate 18 /min Griselda Kuns Other [employer] Other 05-26-2022 13:30-0500 SaO2% (BldA) [Mass fraction] 98 % Griselda Kuns Other [employer] Other 05-26-2022 13:30-0500 Systolic blood pressure 144 mm[Hg] Griselda Kuns Other [employer] Other 04-17-2022 00:30-0400 Diastolic blood pressure 64 mm[Hg] DO Griselda Kuns Work Phone: [facility] 04-17-2022 00:30-0400 Heart rate 78 /min DO Griselda Kuns Work Phone: [facility] 04-17-2022 00:30-0400 Respiratory rate 16 /min DO Griselda Kuns Work Phone: [facility] 04-17-2022 00:30-0400 SaO2% (BldA) [Mass fraction] 97 % DO Griselda Kuns Work Phone: [facility] 04-17-2022 00:30-0400 Systolic blood pressure 135 mm[Hg] DO Griselda Kuns Work Phone: [facility] 04-16-2022 19:45-0400 Body height 172.72 cm DO Griselda Kuns Work Phone: [facility] 04-16-2022 19:45-0400 Body temperature 98.1 [degF] DO Griselda Kuns Work Phone: [facility] 04-16-2022 19:45-0400 Body weight 78 kg DO Griselda Kuns Work Phone: [facility] 04-06-2022 16:31-0400 Body height 172.72 cm DO Griselda Kuns Work Phone: [facility] 04-06-2022 16:31-0400 Body temperature 98.1 [degF] DO Griselda Kuns Work Phone: [facility] 04-06-2022 16:31-0400 Body weight 79.37 kg DO Griselda Kuns Work Phone: [facility] 04-06-2022 16:31-0400 Diastolic blood pressure 108 mm[Hg] DO Griselda Kuns Work Phone: [facility] 04-06-2022 16:31-0400 Heart rate 95 /min DO Griselda Kuns Work Phone: [facility] 04-06-2022 16:31-0400 Respiratory rate 19 /min DO Griselda Kuns Work Phone: [facility] 04-06-2022 16:31-0400 SaO2% (BldA) [Mass fraction] 97 % DO Griselda Kuns Work Phone: [facility] 04-06-2022 16:31-0400 Systolic blood pressure 138 mm[Hg] DO Griselda Kuns Work Phone: [facility] 03-16-2022 13:30-0400 Body height 172.72 cm Griselda [employer] Other [employer] Other 03-16-2022 13:30-0400 Body mass index (BMI) [Ratio] 26.91 kg/m2 Griselda Kuns Other [employer] Other 03-16-2022 13:30-0400 Body weight 80.29 kg Griselda Kuns Other [employer] Other 03-16-2022 13:30-0400 Diastolic blood pressure 80 mm[Hg] Griselda Kuns Other [employer] Other 03-16-2022 13:30-0400 Respiratory rate 16 /min Griselda Kuns Other [employer] Other 03-16-2022 13:30-0400 SaO2% (BldA) [Mass fraction] 97 % Griselda Kuns Other [employer] Other 03-16-2022 13:30-0400 Systolic blood pressure 140 mm[Hg] Griselda Kuns Other [employer] Other 01-30-2022 12:00-0400 Body height 172.72 cm Griselda Kuns Other [employer] Other 01-30-2022 12:00-0400 Body mass index (BMI) [Ratio] 26.3 kg/m2 Griselda Kuns Other [employer] Other 01-30-2022 12:00-0400 Body weight 78.47 kg Griselda Kuns Other [employer] Other 01-30-2022 12:00-0400 Diastolic blood pressure 82 mm[Hg] Griselda Kuns Other [employer] Other 01-30-2022 12:00-0400 Respiratory rate 16 /min Griselda Kuns Other [employer] Other 01-30-2022 12:00-0400 SaO2% (BldA) [Mass fraction] 99 % Griselda Kuns Other [employer] Other 01-30-2022 12:00-0400 Systolic blood pressure 146 mm[Hg] Griselda Kuns Other [employer] Other 12-26-2021 11:00-0400 Body height 172.72 cm Griselda Kuns Other [employer] Other 12-26-2021 11:00-0400 Body mass index (BMI) [Ratio] 26.61 kg/m2 Griselda Kuns Other [employer] Other 12-26-2021 11:00-0400 Body weight 79.38 kg Griselda Kuns Other [employer] Other 12-26-2021 11:00-0400 Diastolic blood pressure 80 mm[Hg] Griselda Kuns Other [employer] Other 12-26-2021 11:00-0400 Respiratory rate 16 /min Griselda Kuns Other [employer] Other 12-26-2021 11:00-0400 SaO2% (BldA) [Mass fraction] 96 % Griselda Kuns Other [employer] Other 12-26-2021 11:00-0400 Systolic blood pressure 166 mm[Hg] Griselda Kuns Other [employer] Other 12-05-2021 10:15-0400 Body height 172.72 cm Griselda Kuns Other [employer] Other 12-05-2021 10:15-0400 Body mass index (BMI) [Ratio] 269.71 kg/m2 Griselda Kuns Other [employer] Other 12-05-2021 10:15-0400 Body weight 804.69 kg Griselda Kuns Other [employer] Other 12-05-2021 10:15-0400 Diastolic blood pressure 72 mm[Hg] Griselda Kuns Other [employer] Other 12-05-2021 10:15-0400 Respiratory rate 18 /min Griselda Kuns Other [employer] Other 12-05-2021 10:15-0400 SaO2% (BldA) [Mass fraction] 99 % Griselda Kuns Other [employer] Other 12-05-2021 10:15-0400 Systolic blood pressure 130 mm[Hg] Griselda Kuns Other [employer] Other 11-08-2021 11:15-0400 Body height 172.72 cm Griselda Kuns Other [employer] Other 11-08-2021 11:15-0400 Body mass index (BMI) [Ratio] 27.06 kg/m2 Griselda Kuns Other [employer] Other 11-08-2021 11:15-0400 Body weight 80.74 kg Griselda Kuns Other [facility] [employer] Other 11-08-2021 11:15-0400 Diastolic blood pressure 80 mm[Hg] Griselda Krause Other [facility] [employer] Other 11-08-2021 11:15-0400 Respiratory rate 16 /min Griselda Krause Other [facility] [employer] Other 11-08-2021 11:15-0400 SaO2% (BldA) [Mass fraction] 97 % Griselda Krause Other [facility] [employer] Other 11-08-2021 11:15-0400 Systolic blood pressure 128 mm[Hg] Griselda Krause Other [facility] [employer] Other 11-03-2021 09:38-0400 Body height 170.51 cm Griselda Driver Darling Work Phone: [facility] Work Phone: 11-03-2021 09:38-0400 Body mass index (BMI) [Ratio] 27.05 kg/m2 Griselda Neisha Krause Work Phone: [facility] Work Phone: 11-03-2021 09:38-0400 Body surface area Derived from formula 1.91 m2 Griselda Neisha Krause Work Phone: [facility] Work Phone: 11-03-2021 09:38-0400 Body temperature 98.2 [degF] Girselda R Andreas Work Phone: [facility] Work Phone: 11-03-2021 09:38-0400 Body weight 78.65 kg Griselda Mendezs Work Phone: [facility] Work Phone: 11-03-2021 09:38-0400 Diastolic blood pressure 67 mm[Hg] Griselda R Andreas Work Phone: [facility] Work Phone: 11-03-2021 09:38-0400 Heart rate 63 /min Griselda R Andreas Work Phone: [facility] Work Phone: 11-03-2021 09:38-0400 Respiratory rate 16 /min Griselda R Andreas Work Phone: [facility] Work Phone: 11-03-2021 09:38-0400 SaO2% (BldA) [Mass fraction] 99 % Griselda R Darling Work Phone: [facility] Work Phone: 11-03-2021 09:38-0400 Systolic blood pressure 147 mm[Hg] Griselda R Andreas Work Phone: [facility] Work Phone: 11-03-2021 09:38-0400 7 1 Griselda R Andreas Work Phone: [facility] Work Phone: Comment on above: [employer] 11-01-2021 13:30-0400 Body height 172.72 cm Griselda Krause Other [employer] Other 11-01-2021 13:30-0400 Body mass index (BMI) [Ratio] 26.61 kg/m2 Griselda Andreagideon Other [employer] Other 11-01-2021 13:30-0400 Body weight 79.38 kg Griselda Krause Other [employer] Other 11-01-2021 13:30-0400 Diastolic blood pressure 78 mm[Hg] Griselda Andreas Other [employer] Other 11-01-2021 13:30-0400 Respiratory rate 18 /min Griselda Kuns Other [employer] Other 11-01-2021 13:30-0400 SaO2% (BldA) [Mass fraction] 99 % Griselda Andreas Other [employer] Other 11-01-2021 13:30-0400 Systolic blood pressure 140 mm[Hg] Griselda Kuns Other [employer] Other 10-24-2021 09:45-0400 Body height 172.72 cm Sheng Fredxavier Other [employer] Other 10-24-2021 09:45-0400 Body mass index (BMI) [Ratio] 26.76 kg/m2 Sheng Schneider Other [employer] Other 10-24-2021 09:45-0400 Body weight 79.83 kg Sheng Schneider Other [employer] Other 10-13-2021 09:50-0400 Body height 172 cm Memo Cole MD Work Phone: [facility] 10-13-2021 09:50-0400 Body temperature 97.5 [degF] Memo Cole MD Work Phone: [facility] 10-13-2021 09:50-0400 Body weight 81.28 kg Memo Cole MD Work Phone: [facility] 10-13-2021 09:50-0400 Diastolic blood pressure 77 mm[Hg] Memo Cole MD Work Phone: [facility] 10-13-2021 09:50-0400 Heart rate 70 /min Memo Cole MD Work Phone: [facility] 10-13-2021 09:50-0400 Respiratory rate 16 /min Memo Cole MD Work Phone: [facility] 10-13-2021 09:50-0400 SaO2% (BldA) [Mass fraction] 99 % Memo Cole MD Work Phone: [facility] 10-13-2021 09:50-0400 Systolic blood pressure 152 mm[Hg] Memo Cole MD Work Phone: [facility] 09-19-2021 10:45-0400 Body height 172.72 cm Griselda [employer] Other [employer] Other 09-19-2021 10:45-0400 Body mass index (BMI) [Ratio] 26.15 kg/m2 [employer]da[employer]iv[employer] Other [employer] Other 09-19-2021 10:45-0400 Body weight 78.02 kg Griselda [employer] Other [employer] Other 09-19-2021 10:45-0400 Diastolic blood pressure 80 mm[Hg] Griselda [employer] Other [employer] Other 09-19-2021 10:45-0400 Respiratory rate 18 /min [employer] Other [employer] Other 09-19-2021 10:45-0400 SaO2% (BldA) [Mass fraction] 99 % [employer] Other [employer] Other 09-19-2021 10:45-0400 Systolic blood pressure 140 mm[Hg] Griselda Kuns Other [employer] Other 06-30-2021 13:30-0500 Body height 172.72 cm Griselda Kuns Other [employer] Other 04-14-2021 08:45-0400 Body height 172.72 cm Griselda Kuns Other [employer] Other 04-14-2021 08:45-0400 Body mass index (BMI) [Ratio] 25.85 kg/m2 Griselda Kuns Other [employer] Other 04-14-2021 08:45-0400 Body weight 77.11 kg Griselda Kuns Other [employer] Other 04-14-2021 08:45-0400 Diastolic blood pressure 80 mm[Hg] Griselda Kuns Other [employer] Other 04-14-2021 08:45-0400 Respiratory rate 16 /min Griselda Kuns Other [employer] Other 04-14-2021 08:45-0400 SaO2% (BldA) [Mass fraction] 99 % Griselda Kuns Other [employer] Other 04-14-2021 08:45-0400 Systolic blood pressure 124 mm[Hg] Griselda Kuns Other [employer] Other Encounters Encounter Date Encounter Type Care Provider Facility Start: 10-29-2023 End: 10-29-2023 ambulatory DO Griseldakeith Mendezs Work Phone: [facility] Work Phone: Start: 10-29-2023 End: 10-29-2023 Patient encounter procedure DO Griselda Kuns Work Phone: [facility] Work Phone: Start: 10-26-2023 End: 10-26-2023 ambulatory MEMO ABKATTAR Facility:[facility] Start: 10-26-2023 Non-patient / Non-visit DO Katy tt Kuns [facility] Phone[facility] Work Phone: Start: 10-24-2023 End: 10-24-2023 ambulatory NIKOLE THOMASON Not Available Start: 10-22-2023 End: 10-23-2023 ambulatory Sarina Ramsey MD Facility:[facility] Start: 10-18-2023 End: 10-18-2023 Patient encounter procedure DO Griselda Kuns Work Phone: [facility] Cardiology Work Phone: Start: 10-16-2023 End: 10-17-2023 ambulatory ELVI CADENA Not Available Start: 10-09-2023 End: 10-09-2023 ambulatory Griselda Kuns Facility:[facility] Start: 10-09-2023 End: 10-09-2023 ambulatory DO Griselda Kuns Work Phone: [facility] Work Phone: Start: 10-09-2023 End: 10-09-2023 Patient encounter procedure DO Griselda Kuns Work Phone: [facility] Work Phone: Start: 10-05-2023 End: 10-06-2023 ambulatory IGNACIA JACK [facility] Start: 10-05-2023 End: 10-05-2023 Office outpatient new 60 minutes Ignacia Jack MD Work Phone: [facility] Comment on above: Brainstem lesion (Pr imary Dx); Pontine glioma (Multi) Start: 10-04-2023 End: 10-04-2023 ambulatory JOSE MARRUFO Not Available Start: 10-01-2023 End: 10-02-2023 ambulatory Sarina Ramsey MD Facility: [facility] Start: 09-19-2023 End: 09-20-2023 ambulatory LIBBY Driver [facility] Start: 09-19-2023 End: 09-19-2023 Subsequent hospital visit by physician Rad External Film [facility] [employer] Comment on above: Arrived Start: 09-10-2023 End: 09-11-2023 ambulatory JEREMY DISLA Not Available Start: 09-05-2023 End: 09-05-2023 Patient encounter procedure DO Griselda Kuns Work Phone: [facility] Cardiology Work Phone: Start: 09-05-2023 End: 09-05-2023 ambulatory DO Griselda Kuns Work Phone: [facility] Work Phone: Start: 09-05-2023 End: 09-05-2023 ambulatory DO Griselda Kuns Work Phone: [facility] Work Phone: Start: 09-05-2023 End: 09-05-2023 Patient encounter procedure DO Griselda Kuns Work Phone: [facility] Vascular Surgery Work Phone: Start: 09-03-2023 End: 09-04-2023 ambulatory Sarina Ramsey MD Facility: [facility] Start: 08-30-2023 End: 08-30-2023 ambulatory NIKOLE THOMASON Not Available Start: 08-15-2023 End: 08-15-2023 Patient encounter procedure DO Griselda Kuns Work Phone: [facility] Family Medicine [facility] Work Phone: Start: 08-14-2023 End: 08-14-2023 ambulatory NIKOLE Harpreet PADDY Not Available Start: 08-06-2023 End: 08-07-2023 ambulatory Sarina Ramsey MD Facility:[facility] Start: 08-02-2023 End: 08-02-2023 ambulatory DO Griselda Kuns Work Phone: [facility] Work Phone: Start: 08-02-2023 End: 08-02-2023 Patient encounter procedure DO Griselda Kuns Work Phone: [facility] Work Phone: Start: 07-26-2023 End: 07-26-2023 ambulatory NIKOLE Harpreet PADDY Not Available Start: 07-26-2023 Chart abstracting Nikole Thomason [employer]PORATE MANAGER Work Phone: [facility] [address] Start: 07-19-2023 End: 07-19-2023 ambulatory NIKOLE Harpreet PADDY Not Available Start: 07-19-2023 Bamboo flowsheet Nikole Thomason BODY CORPORATE MANAGER Work Phone: [facility] BM NEUROLOGY Start: 07-19-2023 Bamboo flowsheet Nikole Thomason BODY CORPORATE MANAGER Work Phone: [facility] Start: 07-18-2023 End: 07-21-2023 ambulatory ADDIS KHAN [facility] Start: 07-03-2023 End: 07-03-2023 ambulatory NIKOLE THOMASON Not Available Start: 07-02-2023 End: 07-02-2023 ambulatory Griselda Kuns Other [facility] [employer] Other Start: 07-02-2023 Office outpatient vi sit 25 minutes Griselda Kuns [facility] Start: 07-02-2023 End: 07-02-2023 Patient encounter procedure DO Griselda Kuns Work Phone: [facility] Work Phone: Start: 06-07-2023 End: 06-07-2023 ambulatory NIKOLE THOMASON Not Available Start: 05-31-2023 End: 05-31-2023 ambulatory Griselda Kuns Other [facility] [employer] Other Start: 05-31-2023 Office outpatient vi sit 25 minutes Griselda Kuns [facility] Start: 05-30-2023 Office outpatient vi sit 15 minutes Ruddy Harvey [facility] Start: 05-30-2023 End: 05-30-2023 ambulatory DO Griselda Kuns Work Phone: [facility] [employer] Other Start: 05-30-2023 End: 05-31-2023 Patient encounter procedure DO Griselda Kuns Work Phone: [facility] Start: 05-30-2023 End: 05-30-2023 Patient encounter procedure DO Griselda Kuns Work Phone: [facility] Vascular Surgery Work Phone: Start: 05-15-2023 End: 05-15-2023 ambulatory Lilliam Cason Other [facility] [employer] Other Start: 05-15-2023 Office outpatient vi sit 25 minutes Lilliam Cason [facility] Start: 05-15-2023 Telephone encounter Lilliam CHENG [employer] Start: 05-15-2023 End: 05-15-2023 Patient encounter procedure DO Griselda Kuns Work Phone: [facility] Cardiology Work Phone: Start: 05-14-2023 End: 05-15-2023 ambulatory Sarina Ramsey MD Facility: [facility] Start: 05-07-2023 End: 05-07-2023 ambulatory Griselda Kuns Facility:[facility] Start: 05-07-2023 End: 05-07-2023 Admission to [facility] day surgery center DO Griselda Kuns Work Phone: [facility]-Interventional Radiology Work Phone: Start: 05-07-2023 End: 05-07-2023 ambulatory DO Griselda Kuns Work Phone: [facility] Work Phone: Start: 05-04-2023 End: 05-04-2023 ambulatory Nikolejose antonio Walkerkalneeta Facility:[facility] Start: 05-04-2023 End: 05-04-2023 ambulatory DO Griselda Kuns Work Phone: [facility] Work Phone: Start: 05-04-2023 End: 05-04-2023 Patient encounter procedure DO Griselda Kuns Work Phone: [facility]-CT Scan [place] Work Phone: Start: 05-03-2023 End: 05-03-2023 ambulatory Ruddy Harvey Other [employer] Other Start: 05-03-2023 Office outpatient ne w 45 minutes Ruddy Harvey [facility] Start: 05-03-2023 Telephone encounter Ruddy craft [facility] [employer] Legal Assistant Start: 05-01-2023 End: 05-01-2023 ambulatory Griselda Kuns Other [employer] Other Start: 05-01-2023 Office outpatient vi sit 25 minutes Griselda Kuns [facility] [place] Start: 04-25-2023 End: 04-25-2023 ambulatory Lilliam Kamla Facility:[facility] Start: 04-25-2023 End: 04-25-2023 ambulatory DO Griselda Kuns Work Phone: [facility] Work Phone: Start: 04-25-2023 End: 04-25-2023 Patient encounter procedure DO Griselda Kuns Work Phone: [facility]-Ultrasound [place] Work Phone: Start: 04-16-2023 End: 04-17-2023 ambulatory Sarina Ramsey MD Facility:[facility] Start: 04-12-2023 End: 04-12-2023 ambulatory Lilliam Kamla Other [employer] Other Start: 04-12-2023 Telephone encounter Lilliam Cason [facility] Start: 04-11-2023 End: 04-11-2023 ambulatory Lilliam Kamla Other [employer] Other Start: 04-11-2023 Office outpatient ne w 45 minutes Lilliam Cason [facility] Start: 04-10-2023 End: 04-10-2023 ambulatory Griselda Kuns Other [employer] Other Start: 04-10-2023 Telephone encounter Griselda Kuns [facility] Start: 03-30-2023 End: 03-30-2023 ambulatory Griselda Kuns Facility:[facility] Start: 03-30-2023 End: 03-30-2023 ambulatory DO Griselda Kuns Work Phone: [facility] Work Phone: Start: 03-30-2023 End: 03-30-2023 Patient encounter procedure DO Griselda Kuns Work Phone: [facility]-Lab [place] Work Phone: Start: 03-21-2023 End: 03-21-2023 Emergency department patient visit Griselda Kuns Facility:[facility] Start: 03-21-2023 End: 03-21-2023 Emergency department patient visit DO Griselda Kuns Work Phone: [facility]-Emergency Room Work Phone: Start: 03-15-2023 End: 03-15-2023 ambulatory Griselda Kuns Other [employer] Other Start: 03-15-2023 Office outpatient vi sit 25 minutes Griselda Kuns [facility] Start: 03-08-2023 End: 03-08-2023 ambulatory Griselda Kuns Other [employer] Other Start: 03-08-2023 Office outpatient vi sit 25 minutes Griselda Kuns [facility] Start: 02-26-2023 End: 02-26-2023 Emergency department patient visit Daniel Gaytan Facility:[facility] Start: 02-26-2023 End: 02-26-2023 Emergency department patient visit DO Griselda Kuns Work Phone: [facility]-Emergency Room Work Phone: Start: 12-28-[address] BRET Lawrence ity:UNKNOWN Start: 12-05-2022 End: 12-05-2022 ambulatory Griselda Kuns Other [employer] Other Start: 12-05-2022 Office outpatient vi sit 25 minutes Griselda Kuns [facility] Start: 11-15-2022 End: 11-15-2022 ambulatory Lima Joseph Facility:[facility] Start: 11-15-2022 End: 11-15-2022 ambulatory DO Griselda Kuns Work Phone: [facility] Work Phone: Start: 11-15-2022 End: 11-15-2022 Patient encounter procedure DO Griselda Kuns Work Phone: [facility]-MRI [address] Work Phone: Start: 11-03-2022 End: 11-03-2022 ambulatory MEMO ABKATTAR Facility:[facility] Start: 10-24-2022 End: 10-24-2022 ambulatory Griselda Kuns Facility:[facility] Start: 10-24-2022 End: 10-24-2022 ambulatory DO Griselda Kuns Work Phone: [facility] Work Phone: Start: 10-24-2022 End: 10-24-2022 Patient encounter procedure DO Griselda Kuns Work Phone: [facility]-Lab [place] Work Phone: Start: 09-28-2022 End: 09-28-2022 ambulatory DEMOND R SULLINGER Facility:[facility] Start: 09-22-2022 End: 09-22-2022 Subsequent hospital visit by physician Jonelle Hernandez (I-Stat/3t) Work Phone: Radiology Comment on above: 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] Start: 09-18-2022 Telephone encounter Kelly ghsoh PA-C Work Phone: [facility] Comment on above: Patient Question Start: 09-13-2022 End: 09-13-2022 Patient encounter procedure Kelly Perez PA-C Work Phone: [facility] Comment on above: NPH (normal pressure hydrocephalus) (HCC) (Primary Dx) Start: 08-31-2022 End: 08-31-2022 ambulatory Griselda Kuns Other [employer] Other Start: 08-31-2022 Office outpatient vi sit 25 minutes Griselda Kuns [facility] Start: 08-01-2022 End: 08-01-2022 ambulatory Griselda Kuns Other [employer] Other Start: 08-01-2022 Office outpatient vi sit 25 minutes Griselda Kuns [facility] Start: 07-17-2022 End: 07-17-2022 ambulatory DO Griselda Kuns Work Phone: [facility] Work Phone: Start: 07-17-2022 End: 07-17-2022 Patient encounter procedure DO Griselda Kuns Work Phone: [facility]-XRay [place] Work Phone: Start: 07-14-2022 End: 07-14-2022 Patient encounter procedure DO Griselda Kuns Work Phone: [facility]-CT Scan [place] Work Phone: Start: 06-28-2022 End: 06-28-2022 ambulatory Trish Blades Other [employer] Other Start: 06-28-2022 Office outpatient ne w 45 minutes Trish Blades [facility] Neurosurgery Start: 05-26-2022 End: 05-26-2022 ambulatory Griselda Kuns Other [employer] Other Start: 05-26-2022 Office outpatient vi sit 25 minutes Griselda Kuns [facility] Family Medicine [place] Start: 05-17-2022 End: 05-17-2022 ambulatory DO Griselda Kuns Work Phone: [facility] Work Phone: Start: 05-17-2022 End: 05-17-2022 Discharged Recurring DO Griselda Kuns Work Phone: [facility]-Physical Therapy [address] Start: 04-27-2022 Registered Recurring DO Griselda Kuns Work Phone: [facility]-Physical Therapy [address] Start: 04-16-2022 End: 04-17-2022 Emergency department patient visit DO Griselda Kuns Work Phone: [facility]-Emergency Room Start: 04-10-2022 End: 04-10-2022 ambulatory Griselda Kuns Other [employer] Other Start: 04-10-2022 Telephone encounter Griselda Kuns [facility] Start: 04-06-2022 End: 04-06-2022 Emergency department patient visit DO Griselda Kuns Work Phone: [facility]-Emergency Room Start: 03-27-2022 Telephone encounter Asya Reynolds RN Hematology/Oncology Comment on above: Appointment Start: 03-22-2022 End: 03-22-2022 ambulatory Griselda Kuns Other [employer] Other Start: 03-22-2022 Telephone encounter [facility]isel[facility]uns [facility] Start: 03-16-2022 End: 03-16-2022 ambulatory Griselda Kuns Other [employer] Other Start: 03-16-2022 Office outpatient vi sit 25 minutes [facility]iselda Kuns [facility] Start: 03-16-2022 Telephone encounter [facility] Comment on above: Triage (Internal Ref erral--old) Start: 03-09-2022 End: 03-09-2022 ambulatory Griselda Kuns Other [employer] Other Start: 03-09-2022 Telephone encounter Griselda Kuns [facility] [place] Start: 03-07-2022 End: 03-07-2022 ambulatory Griselda Kuns Other [employer] Other Start: 03-07-2022 Telephone encounter Griselda Kuns [facility] [place] Start: 03-03-2022 Telephone encounter Griselda Kuns [facility] Start: 03-03-2022 End: 03-03-2022 ambulatory DO Griselda Kuns Work Phone: [employer] Other Start: 03-03-2022 End: 03-03-2022 Discharged Recurring DO Griselda Kuns Work Phone: [facility]-Physical Therapy [facility] Start: 03-03-2022 Registered Recurring DO Griselda Kuns Work Phone: [facility]-Physical Therapy [address] Start: 02-07-2022 End: 02-07-2022 ambulatory Griselda Kuns Other [employer] Other Start: 02-07-2022 Telephone encounter Griselda Kuns [facility] Family Medicine [place] Start: 01-30-2022 End: 01-30-2022 ambulatory Griselda Kuns Other [employer] Other Start: 01-30-2022 Office outpatient vi sit 25 minutes Griselda Kuns [facility] Start: 01-12-2022 End: 01-12-2022 ambulatory Griselda Kuns Other [employer] Other Start: 01-12-2022 Telephone encounter Griselda Kuns [facility] Start: 12-26-2021 End: 12-26-2021 ambulatory Griselda Kuns Other [employer] Other Start: 12-26-2021 Office outpatient vi sit 25 minutes Griselda Kuns [facility] Start: 12-23-2021 End: 12-23-2021 ambulatory Griselda Kuns Other [employer] Other Start: 12-23-2021 Telephone encounter Griselda Kuns [facility] Start: 12-05-2021 End: 12-05-2021 ambulatory Griselda Kuns Other [employer] Other Start: 12-05-2021 Office outpatient vi sit 25 minutes Griselda Kuns [facility] Start: 12-05-2021 Telephone encounter Griselda Kuns [facility] Start: 11-22-2021 End: 11-22-2021 ambulatory Griselda Kuns Other [employer] Other Start: 11-22-2021 Telephone encounter Griselda Kuns [facility] Start: 11-21-2021 Office outpatient vi sit 15 minutes Griselda R Kuns Work Phone: [facility] Work Phone: Start: 11-09-2021 End: 11-09-2021 ambulatory Griselda Kuns Other [employer] Other Start: 11-09-2021 Telephone encounter Griselda Kuns [facility] Start: 11-08-2021 End: 11-08-2021 ambulatory Griselda Kuns Other [employer] Other Start: 11-08-2021 Office outpatient vi sit 25 minutes Griselda Kuns [facility] Start: 11-03-2021 Office consultation new/estab patient 60 min Griselda R Kuns Work Phone: [facility] Work Phone: Start: 11-01-2021 End: 11-01-2021 ambulatory Griselda Kuns Other [employer] Other Start: 11-01-2021 Office outpatient vi sit 25 minutes Griselda Kuns [facility] Start: 10-31-2021 End: 10-31-2021 ambulatory Sheng Schneider Other [employer] Other Start: 10-31-2021 Telephone encounter Sheng Clark 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); Lung nodules; Malignant neoplasm of head, face and neck (HCC) Start: 10-27-2021 End: 10-27-2021 Telemedicine consultation with patient Memo Cole MD Work Phone: [place] Start: 10-24-2021 End: 10-24-2021 ambulatory Sheng Schneider Other [employer] Other Start: 10-24-2021 Office outpatient ne w 30 minutes Sheng Schneider [facility] Neurosurgery Start: 10-13-2021 Telephone encounter Memo kapoor MD [facility] Comment on above: Referral Information (Neurosurgery) Start: 10-13-2021 End: 10-13-2021 ambulatory Memo Cole MD Work Phone: Hematology/Oncology Comment on above: Glioma of brain (HCC ) (Primary Dx); Lung nodules; 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) Start: 10-13-2021 End: 10-13-2021 Patient encounter procedure Memo Coel MD Work Phone: [place] Start: 10-06-2021 End: 10-06-2021 ambulatory Griselda Kuns Other [employer] Other Start: 10-06-2021 Telephone encounter Asya Kumar RN Hematology/Oncology Comment on above: Results Start: 09-29-2021 End: 09-29-2021 ambulatory Griselda Kuns Other [employer] Other Start: 09-29-2021 Telephone encounter Griselda Kuns [facility] Start: 09-27-2021 End: 09-27-2021 ambulatory Griselda Kuns Other [employer] Other Start: 09-27-2021 Telephone encounter Griselda Kuns [facility] Start: 09-19-2021 End: 09-19-2021 ambulatory Griselda Kuns Other [employer] Other Start: 09-19-2021 Office outpatient vi sit 25 minutes Griselda Kuns [facility] Family Medicine [place] Start: 09-12-2021 End: 09-12-2021 ambulatory Griselda Kuns Other [employer] Other Start: 09-12-2021 Telephone encounter Griselda Kuns [facility] Family Medicine [place] Start: 09-08-2021 End: 09-08-2021 ambulatory Griselda Kuns Other [employer] Other Start: 09-08-2021 Telephone encounter Griselda Kuns [facility] Family Medicine [place] Start: 06-30-2021 End: 06-30-2021 ambulatory Griselda Kuns Other [employer] Other Start: 06-30-2021 Office outpatient vi sit 15 minutes Griselda Kuns [facility] Family Medicine [place] Start: 06-30-2021 Telephone encounter Griselda Kuns [facility] [place] Start: 06-29-2021 End: 06-29-2021 ambulatory Griselda Kuns Other [employer] Other Start: 06-29-2021 Nursing evaluation o f patient and report Griselda Kuns [facility] [place] Start: 04-19-2021 End: 04-19-2021 ambulatory Griselda Kuns Other [employer] Other Start: 04-19-2021 Nursing evaluation o f patient and report Griselda Kuns [facility] [place] Start: 04-19-2021 Telephone encounter Griselda Kuns [facility] [place] Start: 04-14-2021 Office outpatient vi sit 15 minutes Griselda Kuns [facility] Medicine [place] Start: 10-01-2020 End: 10-01-2020 Patient encounter procedure Griselda Kuns Work Phone: -Electrodiagnostics Start: 09-20-2020 End: 09-20-2020 Patient encounter procedure Griselda Krause -Lab [facility] Start: 09-13-2020 End: 09-13-2020 Patient encounter procedure Griselda Krause -XRay [facility] Procedures Date Procedure Procedure Detail Performing Clinician Start: 10-09-2023 Respiratory Panel (PCR) DO Griselda Kraues Work Phone: Start: 10-09-2023 Plain chest X-ray DO Griselda Krause Work Phone: Start: 09-19-2023 MR TRANSFER OF OUTSIDE FILMS LIBBY BOOTH Start: 09-19-2023 Study Interpretation of outside study Libby Gross MD Work Phone: Start: 09-05-2023 Ankle brachial pressure index DO [...] Mri brain brain stem w/o w/contrast material Kelly Perez PA-C Work Phone: Start: 07-14-2022 CT of head without contrast DO Griselda meneses Work Phone: Start: 04-16-2022 Plain chest X-ray DO Griselda Krause Work Phone: Start: 04-06-2022 CT cervical spine without contrast DO Griselda Darling Work Phone: Start: 10-13-2021 Adult depression screening assessment Memo Cole MD Work Phone: Start: 10-14-2020 Adult depression screening assessment Asya Kumar RN Start: 09-13-2020 Plain chest X-ray Griselda Krause Excision of melanoma Griselda Krause Work Phone: Plan of Treatment Date Care Activity Detail Author Start: 10-06-2024 DIABETES SCREEN DIABETES SCREEN [facility] Start: 03-15-2024 DTaP/Tdap/Td Vaccines (2 - Td or Tdap) DTaP/Tdap/Td Vaccines (2 - Td or Tdap) [facility] Start: 03-03-2024 Influenza vaccination Influenza Vaccine (#1) [facility] Comment on above: Postponed from 02/16/2023 (Patient Refus ed) Start: 02-17-2024 Influenza vaccination Influenza Vaccine (Season Ended) [facility] Start: 09-28-2023 End: 09-28-2023 Patient encounter procedure 09/28/2023 10:15 AM EDT Office Visit [facility] [address] [address] [facility] 1st [place] [address] [place] [address] [facility] [place] [address] [facility] Start: 09-05-2023 Ankle brachial pressure index [facility] Start: 08-30-2023 End: 08-30-2023 Patient encounter procedure 08/30/2023 9:40 AM EDT Office Visit [facility] [address] [place] [address] Nikole Thomaosn, BODY CORPORATE MANAGER [address] [place] [address] [facility] Start: 07-26-2023 End: 07-26-2023 Patient encounter procedure 07/26/2023 1:30 PM EST Procedure Visit [facility] [address] [address] Nikole Thomason BODY CORPORATE MANAGER [address] [place] [address] [facility] [address] Start: 07-19-2023 End: 07-19-2023 Clinical Support 07/19/2023 1:30 PM EST Clinical Support [facility] [address] [facility] [address] [place] [address] Nikole Thomason, BODY CORPORATE MANAGER [address] [place] [address], [place] [address] Cervical dystonia [facility] Comment on above: Cervical dystonia Start: 05-07-2023 Pulse volume recorder pneumoplethysmography US arterial pvr rest [facility] Start: 05-07-2023 [facility] Start: 05-07-2023 [facility] Start: 04-25-2023 Pulse volume recorder pneumoplethysmography US arterial pvr rest [facility] Start: 02-16-2023 COVID-19 Vaccine ( season) COVID-19 Vaccine ( season) [facility] Start: 02-16-2023 Influenza vaccination INFLUENZA (Season Ended) [facility] Start: 2022 RSV patients and/or patients aged 60+ years (1 - 1-dose 60+ series) RSV patients and/or patients aged 60+ years (1 - 1-dose 60+ series) [facility] Start: 10-30-2022 End: 10-30-2022 CBC W Auto Differential panel - Blood CBC + DIFF Lab Routine 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) Lung nodules Malignant neoplasm of head, face and neck (HCC) Expected: 10/30/2022 (Approximate), Expires: 10/30/2022 [facility] Work Phone: Comment on above: Expected: 10/30/2022 (Approximate), Expi res: 10/30/2022 Start: 10-30-2022 End: 10-30-2022 Comprehensive metabolic 2000 panel - Serum or Plasma COMP METABOLIC PANEL Lab Routine 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) Lung nodules Malignant neoplasm of head, face and neck (HCC) Expected: 10/30/2022 (Approximate), Expires: 10/30/2022 [facility] Work Phone: Comment on above: Expected: 10/30/2022 (Approximate), Expi res: 10/30/2022 Start: 10-30-2022 End: 11-29-2022 Ct soft tissue neck w/contrast material CT NECK SOFT TISSUE W IVCON Radiology Routine Malignant neoplasm of head, face and neck (HCC) Expected: 10/30/2022 (Approximate), Expires: 11/29/2022 [facility] Work Phone: Comment on above: Expected: 10/30/2022 (Approximate), Expi res: 11/29/2022 Start: 10-30-2022 End: 11-29-2022 Ct thorax w/contrast material CT CHEST W IVCON Radiology Routine Lung nodules Expected: 10/30/2022 (Approximate), Expires: 11/29/2022 [facility] Work Phone: Comment on above: Expected: 10/30/2022 (Approximate), Expi res: 11/29/2022 Start: 10-13-2022 Adult depression screening assessment DEPRESSION SCREENING [facility] Start: 07-17-2022 Aerobic Culture Aerobic Culture [facility] Start: 07-17-2022 Anaerobic Culture Anaerobic Culture [facility] Start: 07-17-2022 Microscopic observation [Identifier] in Unspecified specimen by Gram stain [facility] Start: 07-17-2022 Cerebrospinal fluid culture [facility] Start: 07-17-2022 End: 07-17-2022 [facility] Start: 07-17-2022 [facility] Start: 06-18-2022 DEPRESSION ASSESSMENT DEPRESSION ASSESSMENT [facility] Start: 04-16-2022 Plain chest X-ray XR ribs LT min 3V w [id number]* [facility] Start: 04-16-2022 XR Unspecified body region Views [facility] Start: 02-16-2022 Influenza vaccination [facility] Start: 10-14-2021 Adult depression screening assessment DEPRESSION SCREENING [facility] Start: 06-23-2021 COVID-19 VACCINE (3 - Booster for Pfizer series) COVID-19 VACCINE (3 - Booster for Pfizer series) [facility] Start: 06-18-2021 DEPRESSION ASSESSMENT DEPRESSION ASSESSMENT [facility] Start: 03-18-2021 COVID-19 VACCINE (3 - Booster for Pfizer series) COVID-19 VACCINE (3 - Booster for Pfizer series) [facility] Start: 2017 PROSTATE CANCER SCREENING DISCUSSION PROSTATE CANCER SCREENING DISCUSSION [facility] Start: 2012 SHINGRIX VACCINE (1 of 2) SHINGRIX VACCINE (1 of 2) [facility] Start: 2012 Zoster Vaccines (1 of 2) Zoster Vaccines (1 of 2) [facility] Start: 11-25-2007 COLOGUARD (FIT-DNA) COLOGUARD (FIT-DNA) [facility] Start: 11-25-2007 Colonoscopy COLONOSCOPY [facility] Start: 11-25-2007 COLORECTAL CANCER SCREENING COLORECTAL CANCER SCREENING [facility] Start: 11-25-[address] COLONOGRAPHY [facility] Start: 11-25-2007 FECAL OCCULT BLOOD FECAL OCCULT BLOOD [facility] Start: 11-25-2007 SIGMOIDOSCOPY SIGMOIDOSCOPY [facility] Start: 1997 LIPID SCREEN LIPID SCREEN [facility] Start: 1981 Urine microalbumin profile DTAP,TDAP,TD (1 - Tdap) [facility] Start: 1980 Diabetes mellitus screening Diabetes Screening [facility] Start: 1980 HEPATITIS C SCREENING HEPATITIS C SCREENING [facility] Start: 1980 Hepatitis C screening Hepatitis C Screening [facility] Start: 1980 HIV SCREENING HIV SCREENING [facility] Start: 1968 Pneumococcal Vaccine: Pediatrics (0 to 5 Years) and At-Risk Patients (6 to 64 Years) (1 of 2 - PCV) Pneumococcal Vaccine: Pediatrics (0 to 5 Years) and At-Risk Patients (6 to 64 Years) (1 of 2 - PCV) [facility] Start: 11-25-1963 MMR Vaccines (1 of 1 - Standard series) MMR Vaccines (1 of 1 - Standard series) [facility] Start: 1962 HIV screening HIV Screening [facility] Start: 1962 Lipid panel Lipid Panel [facility] Start: 1962 Screening for malignant neoplasm of colon [facility] Start: 1962 Yearly Adult Physical Yearly Adult Physical [facility] Ankle brachial pressure index [facility] Bacteria identified in Cerebral spinal fluid by Culture CSF CULT + STAIN Microbiology Routine NPH (normal pressure hydrocephalus) ([facility]) Ordered: 09/13/2022 [facility] Work Phone: Comment on above: Ordered: 09/13/2022 Bacteria identified in Unspecified specimen by Aerobe culture [facility] Bacteria identified in Unspecified specimen by Anaerobe culture [facility] Cell count panel - C erebral spinal fluid CSF CELL COUNT Lab Routine NPH (normal pressure hydrocephalus) ([facility]) Ordered: 09/13/2022 [facility] Work Phone: Comment on above: Ordered: 09/13/2022 Cell count, cerebros roberto fluid [facility] Enolase.neuron speci fic [Mass/volume] in Serum or Plasma by Immunoassay [facility] Fungus identified in Unspecified specimen by Culture [facility] Glucose [Mass/volume ] in Cerebral spinal fluid [facility] IR LP FOR DRAINAGE (PRESSURE) IR LP FOR DRAINAGE (PRESSURE) Radiology Routine NPH (normal pressure hydrocephalus) ([facility]) Ordered: 09/13/2022 [facility] [facility] Work Phone: Comment on above: Ordered: 09/13/2022 Meningitis+Encephali tis pathogens DNA and RNA panel - Cerebral spinal fluid by JER with non-probe detection [facility] End: 10-20-2023 Mri brain brain stem w/o w/contrast material MRI BRAIN WO/W IVCON Radiology Routine 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[facility]) 1 Occurrences starting 09/20/2022 until 10/20/2023 [facility] Work Phone: Comment on above: 1 Occurrences starting 09/20/2022 until 10/20/2023 Patient Education [facility] Work Phone: Patient referral [facility] Work Phone: Protein [Mass/volume ] in Cerebral spinal fluid [facility] Virus identified in Unspecified specimen by Culture [facility] Immunizations Immunization Date Immunization Notes Care Provider Fa cility 01-21-2021 COVID-19 Vaccine Pfi zer - Documentation Purposes Only Griselda Kuns Other [facility] 12-30-2020 COVID-19 Vaccine Pfi zer - Documentation Purposes Only Griselda Kuns Other [facility] 01-24-2016 KENALOG - 10 mg Griselda Kuns Other [facility] 01-27-2015 Toradol per 15 mg Grisedla Kuns Other [facility] Other 03-15-2014 tetanus toxoid, redu julienne diphtheria toxoid, and acellular pertussis vaccine, adsorbed Griselda Kuns Other [facility] Other Payers Date Payer Category Payer Self-pay [id number] 2022 Private Health Insurance [id number] 2021 Private Health Insurance [facility] [employer] GENERIC [id number] 2021-Present [phone] [address] [place] [address] PPO [id number]. [id number] 2021 Private Health Insurance [id number] .[id number]. [id number] 2019 Medicaid [employer] [facility] [id number] 2019-Present [phone] [address] [place] [address] Medicaid [id number] 2019 Medicaid [id number] [id number]. [id number] 2019 Unknown [id number] 2019 Unknown 2019 Unknown [id number] 2.16.840.1.962685.19 1962 Unknown [id number] 2.16.840.1.643822.3.579.2. 693 1962 Unknown [id number] 2.16.840.1.959591.3.579.2. 356 1962 Unknown [id number] 2.16.840.1.612502.3.579.2. 182 1962 Unknown [id number] 2.16.840.1.811555.3.579.2. 182 1962 Unknown [id number] 2.16.840.1.407037.3.579.2. 1259 1962 Unknown [id number] 2.16.840.1.599453.3.579.2. 1259 1962 Unknown [id number] 2.16.840.1.834569.3.579.2. 1259 1962 Unknown [id number] 2.16.840.1.204142.3.579.2. 1259 1962 Unknown [id number] 2.16.840.1.429868.3.579.2. 1259 1962 Unknown [id number] 2.16.840.1.825485.3.579.2. 1259 1963 Unknown [id number] 2.16.840.1.918013.3.579.2. 1258 1962 Unknown [id number] 2.16.840.1.952517.3.579.2. 1258 1962 Unknown [id number] 2.16.840.1.558919.3.579.2. 1258 1962 Unknown [id number] 2.16.840.1.509352.3.579.2. 1258 1962 Unknown [id number] 2.16.840.1.028792.3.579.2. 1258 1962 Unknown [id number] 2.16.840.1.694824.3.579.2. 1258 1962 Unknown [id number] 2.16.840.1.609837.3.579.2. 1244 1962 Unknown [id number] 2.16.840.1.654233.3.579.2. 1244 1962 Unknown [id number] 2.16.840.1.337024.3.579.2. 1962 Unknown [id number] 2.16.840.1.474777.3.579.2. 1962 Unknown [id number] 2.16840.1.827435.3.579.2. 1962 Unknown [id number] 2.16.840.1.558146.3.579.2. 1962 Unknown [id number] 2.16.840.1.213455.3.579.2. 1962 Unknown [id number] 2.16.840.1.084985.3.579.2. Private Health Insurance [id number] Unknown [id number] Unknown [id number] 2.16.840.1.005299.3.579.2. 531 Unknown [id number] 2.16.840.1.055920.3.579.2. 531 Unknown [id number] 2.16.840.1.903555.3.579.2. 531 Unknown [id number] 2.16.840.1.626779.3.579.2. 531 Unknown [id number] 2.16.840.1.171580.3.579.2. 531 Unknown [id number] 2.16.840.1.042156.3.579.2. 531 Unknown [id number] 2.16.840.1.285214.3.579.2. 531 Unknown [id number] 2.16.840.1.456267.3.579.2. 531 Unknown [id number] 2.16.840.1.831241.3.579.2. 531 Unknown [id number] 2.16.840.1.953731.3.579.2. 531 Unknown [id number] 2.16.840.1.419453.3.579.2. 531 Social History Date Type Detail Facility Start: 04-29-2018 End: 10-18-2023 Tobacco smoking status TXIS Smoker (finding) [facility] Start: 1960 Sex Assigned At Male F [facility] Start: 10-16-2019 Tobacco smoking status TXIS Ex-smoker [facility] History of tobacco use Cigarette Smoker [facility] Start: 10-16-2019 End: 10-05-2023 Cigarettes smoked current (pack per day) - Reported 1.5 [facility] Start: 10-16-2019 End: 10-05-2023 Tobacco use and exposure Smokeless tobacco non-user [facility] Start: 10-14-2020 End: 07-19-2023 Alcohol intake Ex-drinker (finding) [facility] Start: 01-20-2019 History SDOH Alcohol Comment quit 2002 [facility] Start: 10-16-2019 Tobacco Comment quit smoking 01/2019 [facility] Start: 1960 Sex Assigned At Not on file C [facility] Start: 10-03-2021 End: 10-05-2023 Exposure to SARS-CoV-2 (event) Not sure [facility] Start: 07-03-2023 End: 10-05-2023 Sex Assigned At [facility] Start: 03-10-2022 End: 03-20-2022 Exposure to SARS-CoV-2 (event) Unable to assess [facility] Work Phone: Start: 12-28-2022 End: 10-05-2023 Daily Smoker [facility] Start: 03-13-2023 Tobacco Comment 6-10 cigarettes/[address] [facility] Start: 11-22-2022 Gender identity Identifies as male gender (finding) [facility] Start: 11-22-2022 Sexual orientation Heterosexual (fin ding) [facility] Tobacco smoking status NHIS Tobacco smoking consumption unknown [facility] Work Phone: Start: 10-05-2023 Alcoholic beverage intake Lifetime non-drinker (finding) [facility] Work Phone: NEGATED: Highlighted rowStart: NINF History of tobacco use Passive smoker [facility] Work Phone: Medical Equipment Procedure Code Equipment Code Equipment Origin al Text Equipment Identifier Dates Angiogram, lower extremity, left Multiple peripheral artery stent, bare-metal [id number] FDA Start: 05-07-2023 Goals Date Patient Goal Desired Activity /State Clinical Notes 11-03-2008 to 10-26-2023 Ignacia Jack MD - 10/05/2023 9:30 AM EDTPatient Instructions Note Date & Type Note Facility 10-26-2023 Note HNO ID: [id number] Author: DEVIN PATEL RT(R) Service: ? Author Type: Technologist Type: Progress Notes Filed: 10/26/2023 10:07 Note Text: Radiology Service Progress Note PATIENT NAME: Jovani Melendez DATE OF SERVICE: October 26, 2023 TIME: 10:07 AM PATIENT IDENTITY VERIFICATION COMPLETED USING TWO (2) IDENTIFIERS: Name and Date of confirmed by patient verbally. FALL SCREENING: Has the patient had 2 falls in the last year or 1 fall with injury or currently using an Ambulatory Assistive Device (Walker, Cane, Wheelchair, Crutches, etc.)? No PATIENT GENDER DATA: Male PATIENT RELEVANT IMPLANT DATA REVIEWED: Not Applicable PATIENT PRESENTS WITH AN IMPLANTABLE OR ATTACHED LANDSCAPE SPECIALIST: No RADIOLOGY DEPARTMENT: CT; Exam(s) Completed: Chest and Neck PERIPHERAL IV DATA: Site assessment: Clean,Dry and Intact, Site disposition Discontinued SIGNED BY: RT Craig(R) October 26, 2023 10:07 AM [facility] 10-26-2023 Note HNO ID: [id number] Author: CURTIS DA SILVA RN Service: ? Author Type: Registered Nurse Type: Progress Notes Filed: 10/26/2023 09:31 Note Text: Radiology Service Progress Note DATE OF SERVICE: October 26, 2023 TIME: 9:30 AM PATIENT WEIGHT: 176LBS PATIENT IDENTITY VERIFICATION COMPLETED USING TWO (2) STANDARD IDENTIFIERS: Name and Date of confirmed by patient verbally. FALL SCREENING: Has the patient had 2 falls in the last year or 1 fall with injury or currently using an Ambulatory Assistive Device (Walker, Cane, Wheelchair, Crutches, etc.)? No PATIENT GENDER DATA: Male ALLERGIES: Reviewed and unchanged CONTRAST ALLERGY: No EXAM: CT -CONTRAST INDUCED NEPHROPATHY RISK FACTORS: Patient age > 60 years CREATININE: Creatinine Date Value Ref Range Status [...] Range Status 10/08/2020 >60 Final P.O.C.T. RESULTS: POC done: Yes, See Lab Tab October 26, 2023 TREATMENT: N/A IV SITE: Ambulatory: A peripheral IV was started in the Left antecubital site with a Angio cath: 20 gauge. IV SITE APPEARANCE: Clean,Dry and Intact SIGNATURE: Curtis Da Silva RN PATIENT NAME: Jovani Melendez DATE: October 26, 2023 TIME: 9:30 AM [facility] 10-05-2023 History of Presen t illness Narrative Patient ID: Jovani Melendez is a 62 y.o. male. Referring Physician: No referring provider defined for this encounter. Primary Care Provider: Griselda Krause DO Subjective History of Present Ilness: 62 y.o. presents in neurosurgical consultation from [facility] for cervical stenosis.C/o neck pain and LUE pain, numbness and weakness down to hand for 2 years. Saw Neurosurgeon at and has had 2 spinal taps with some improvement. Went to [facility] to be assessed for hydrocephal;us and was told he does not have hydrocephalus. He saw Dr. Lara at the [facility]. Also pain behind left eye. No RUE sx. On Plavix for PVD- stent in leg 2 months. Past Medical History: Hypercholesterolemia Cervical foraminal stenosis Past Surgical History: History reviewed. No pertinent surgical history. INTERVAL HISTORY (10/05/2023): Jovani Melendez is a 62 yo RH male who has developed severe chronic neck pain over the past few years. During the work-up for the neck pain, he was noted to have severe multilevel spinal stenosis -- now working with a local Neurosurgeon. During MRI scans to view the neck issues, there was an incidental pontine lesion noted that was initially thought to possibly be Multiple Sclerosis. He has had several scans over the past few years, and the lesion seems to be indolent and stable. He notes left arm weakness from the spinal stenosis, and some mild gait and balance difficulty. He had a recent steroid injection into his neck to help with the pain. An ablation procedure will be scheduled later this year for the neck issues. 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 The ROS is as per documentation in the HPI. Objective BSA: 1.93 meters squared Ht 1.722 m (5' 7.8 ) Wt 77.8 kg (171 lb 9.6 oz) BMI 26.25 kg/m No family history on file. Oncology History No history exists. Jovani Melendez has no history on file for tobacco use. He has no history on file for alcohol use. He has no history on file for drug use. Physical Exam Constitutional: Appearance: Normal appearance. HENT: Head: Normocephalic. Eyes: Extraocular Movements: Extraocular movements intact. Pupils: Pupils are equal, round, and reactive to light. Musculoskeletal: Cervical back: Rigidity and tenderness present. Neurological: Mental Status: He is alert and oriented to person, place, and time. Cranial Nerves: Cranial nerves 2-12 are intact. Sensory: Sensation is intact. Motor: Weakness and pronator drift present. Coordination: Coordination is intact. Gait: Gait abnormal. Deep Tendon Reflexes: Babinski sign absent on the right side. Babinski sign absent on the left side. Reflex Scores: Tricep reflexes are 1+ on the right side and 1+ on the left side. Bicep reflexes are 1+ on the right side and 1+ on the left side. Brachioradialis reflexes are 1+ on the right side and 1+ on the left side. Patellar reflexes are 1+ on the right side and 1+ on the left side. Achilles reflexes are 1+ on the right side and 1+ on the left side. Comments: A&Ox3, speech fluent, no dysnomia, intact STM and cognition, EOMI, PERRL, VFF, CN's V-XII intact, strength 5/5 in RUE, RLE, LLE, 4/5 in LUE, +Franco's on left, +drift in LUE, very mild gait unsteadiness and loss of balance. Psychiatric: Attention and Perception: Attention and perception normal. Mood and Affect: Mood and affect normal. Speech: Speech normal. Behavior: Behavior normal. Behavior is cooperative. Thought Content: Thought content normal. Cognition and Memory: Cognition and memory normal. Judgment: Judgment normal. Performance Status: Symptomatic; fully ambulatory Lab Results Component Value Date WBC 7.0 11/03/2021 HGB 14.3 11/03/2021 HCT 42.9 11/03/2021 MCV 100 11/03/2021 PLT 227 11/03/2021 The recent brain MRI scans were reviewed with the patient and family: Impression 1. Abnormal increased T2 signal in the naldo, right greater than left, worrisome for low-grade malignancy such as a glioma. Infectious or inflammatory process cannot be excluded, although this seems unlikely given the absence of enhancement. 2. No acute intracranial hemorrhage, infarction, mass effect or midline shift elsewhere in the brain Assessment/Plan -Jovani has severe cervical stenosis and is working with Dr. Khan for follow-up and treatment. -He has an incidental pontine lesion noted on MRI that is most consistent with a low-grade glioma, other considerations would include a focal region of demyelination, inflammatory mass, or hamartomatous lesion. -The MRI scans from the past few years suggest the lesion has been fairly stable -- there might have been some subtle enlargement over the past year. -We will present his case at the Neuro-Oncology Tumor Board next week to review the MRI scans in detail. -If there is unequivocal evidence of subtle growth of the lesion, then it is likely a low-grade glioma that is slowly enlarging, and will require a course of empiric chemo-RT. -If the lesion is totally stable, then we will continue to follow it closely with watchful waiting . -He will return to this clinic in the near future after the TB recommendations. -I spent > 60 minutes in face to face consultation to review and discuss the above; 50% of which or more was dedicated to counseling. Ignacia Jack MD documented in this encounter [facility] Work Phone: 10-05-2023 Instructions Adriana Thomas RN - 10/05/2023 9:[address] Jack will present your case at Tumor Board next Sunday. Someone from the office will call you that day or about your plan. Please call us with any questions or concerns at [phone] opt. 5, opt. 2 For scheduling concerns please call [phone] option 1 documented in this encounter [facility] Work Phone: 08-15-2023 Evaluation note Authored August 15, 2023 5:19pm The above note written by Serafin Flood acting as human recorder, note dictated by Dr. Griselda Krause . [facility] Work Phone: [phone] 774-761902-28-2024 Evaluation note* Author Curtis Covarrubias [facility] Authored August 15, 2023 5:19pm The above note written by Serafin Flood acting as human recorder, note dictated by Dr. Griselda Krause . Author Shilpi Lantigua [facility] Authored October 29, 2023 10:32 am Sooner if needed, the ER if concerns,The above note written by Shilpi Lantigua LPN acting as human recorder, note dictated by Dr. Griselda Krause [facility] Work Phone: 1(739) 547-106201-15-2024 Evaluation note* Encounter Date Diagnosis Assessment Notes [...] Jun, Chest congestion (ICD-10 - R09.89) [place], flu, strep and rsv test was [...] continue to follow with them as scheduled. [facility] Other 12-14-2023 Evaluation note* Encounter Date Diagnosis Assessment Notes Treatment Notes Treatment Clinical Notes May, PAD (peripheral artery disease) (ICD-10 - I73.9) Patient recently had angioplasty for occlusion of right iliac artery that was discovered by regrind mill operator. He has been doing well since [...] work before I provide him that consent. [facility] Other 12-13-2023 Evaluation note* Encounter Date Diagnosis [...] I will see him in 3 months. [facility] Other 11-28-2023 Evaluation note* Encounter Date Diagnosis [...] 3 months Apr, Lightheadedness (ICD-10 - R42) [facility] Other [id number] [facility]* Encounter Date Diagnosis Assessment Notes Treatment Notes Treatment Clinical Notes Apr, Right leg claudication (ICD-10 - I73.9) 16 Apr, 2023 PAD (peripheral artery disease) (ICD-10 - I73.9) [...] questions were addressed and consent was obtained. [facility] 11-14-2023 Evaluation note* Encounter Date Diagnosis [...] M54.2) The patient is now following with [facility]. He states he has an upcoming cervical epidural scheduled. 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 Apr, PAD (peripheral artery disease) (ICD-10 - I73.9) Arterial studies ordered by regrind mill operator indicating peripheral artery disease. The patient does report lower extremity pain and heaviness and I recommend it would be beneficial to consult with a vascular specialist. The patient is in agreement, therefore a referral was initiated. A CTA has been ordered by neurologist , appointment pending [facility] scheduling. Apr, Hyperlipidemia [...] vocies understanding. We will continue to monitor. [facility] 10-26-2023 Evaluation note* Encounter Date Diagnosis Assessment Notes Treatment Notes Treatment Clinical Notes Mar, Claudication (ICD-10 - I73.9) [facility] 10-25-2023 Evaluation note* Encounter Date Diagnosis [...] 4 weeks Mar, Lightheadedness (ICD-10 - R42) [facility] 10-24-2023 Evaluation note* Encounter Date Diagnosis Assessment Notes Treatment Notes Treatment Clinical Notes Mar, Elevated blood pressure reading (ICD-10 - R03.0) [facility] 09-28-2023 Evaluation note* Encounter Date Diagnosis [...] infection. Feb, Burning sensation (ICD-10 - R20.8) [facility] 09-21-2023 Evaluation note* Encounter Date Diagnosis [...] index finger. We will continue to monitor. [facility] 07-13-2023 Hospital Discharge instructions Diet Plan/Instructions [...] * Discharge Physician: : Lima Joseph MD ([id number]) - Anesthesiology, Pain Management * Discharge Physician Phone: : [phone] [facility] [address], [place] [address] Special Plan/Instructions for Discharge from 12/27/2022 10:26 AM: * Special Instructions : Spoke to patient Wound Care Instruction for Discharge from 12/27/2022 10:26 AM: * Special Instructions : Spoke to patient [facility]MR 06-20-2023 Evaluation note* Encounter Date Diagnosis Assessment [...] sent to the office to be completed. [facility] 05-19-2023 NoteHNO ID: [id number] Author: Memo Cole MD Service: ? Author Type: Physician Type: Progress Notes Filed: 11/05/2022 11:32 AM Note Text: NAME: Jovani Melendez CLINIC NO.: [id number] DATE OF SERVICE: November 03, 2022 (Curtis) Some elements in this clinic note that are critical to medical decision making have been carefully reviewed and included from a prior clinic note dated: October 27, 2021 (Curtis) AND October 13, 2021 (Curtis) Referring Provider: Griselda Krause, DO Additional Clinicians involved in Jovani Melendez's care: Dr Kimberly Nichole ENT, Dr. Ibarra [place] surgery [facility] CC: Head and neck cancer ASSESSMENT: 61 year old man who underwent selective right neck dissection (II-V) and bilateral base of tongue/linguial tonsillar excision on 01/30/[address] 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 Pathology revealed 1 of 69 lymph nodes (Level II) positive for metastatic HPV+ SCC measuring 4.5 cm without extracapsular extension. 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 Only high-risk feature is the node being greater than 3 cm. He was advised at Tumor Board to undergo Radiation only. 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 PLAN: Scans and labs in 1 year RTC 1 week after TREATMENT TO DATE: 01/30/19 He had a neck dissection at [facility] HPI: Updated Visit, November 03, 2022: 61 yo man returns with his sigo Юлия. still following with neurosurgery. Scans are negative for recurrence. Still smoking. Updated Visit, October 27, 2021: Telephone 6 minutes. Follow up call regarding his abnormal MRI - Doing well - unlikely to be a tumor - possibly MS Will see him in 1 year Would like to get back to work Updated Visit, October 13, 2021: 1 month [...] 2020: Doing well, still smokes, works at [employer]. Reviewed scans and there is no evidence of scarring or progressive disease. He does have chronic lung disease associated with tobacco use and perhaps has bronchiolitis of both upper lobe. He continues regular follow-up with ENT and Dr. Ibarra. Updated Visit, April 15, 2020: Jovani is 59 years old and returns today to review his scans as comparison from 6 months ago. He still demonstrates no evidence of recurrence but unfortunately continues to smoke. Try to reeducate him again. He has minor dyspnea with chronic cough [...] blood cells, platelets. Slightly high absolute neutrophil count at 7800. PSA performed was 0.69. BMP was normal with calcium of 10.1, sodium and potassium within normal limits. Total protein of 6.3 with an albumin of 4.0. Creatinine was 0.83. Liver function studies were normal including alkaline phosphatase. TSH was 1.39. CT of the chest performed on 11/12/17 showed abnormal enlarging right jugulodigastric lymph node and moderate mucosal thickening. Also noted irregular suspicious left upper lobe pulmonary nodule 6 mm. RADIOGRAPHIC DATA: Reviewed on October 13, 2021. 5. 10/06/2021 CT Neck - Chest w/Cont: Neck: 1. MODERATE DEGENERATIVE CHANGES INVOLVING THE CERVICAL SPINE. MODERATE ATHEROSCLEROSIS INVOLVING THE CAROTID BIFURCATIONS AND CAROTID SIPHONS. 2. OTHERWISE, UNREMARKABLE CT NECK WITH CONTRAST. NO SIGNIFICANTLY ENLARGED LYMPH NODES. Chest: 1. Left-sided subcentimeter pulmonary nodules, stable. 2. Nonspecific, sclerotic foci involving bilateral ribs, unchanged. 3. No substantial i (more content not included)...[facility] 09-22-2022 History of Present illness Narrative* RT Julio(R) [...] Head: IAC/CPA SIGNATURE: RT Julio(R) PATIENT NAME: Jovnai Melendez DATE: September 22, 2022 TIME: 2:39 PM [facility] Miscellaneous Notes* Telephone Encounter - Akash Menezes RN - 09/20/2022 1:00 PM EDT Called and spoke with pt via phone. 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 Also notified pt that a brain MRI has been ordered and should be done prior to his appointment with Dr. Jackson. Pt verbalized understandingand denies any further needs at this time. * Telephone Encounter - Kelly Perez PA-C - 09/20/2022 11:24 AM EDT [...] schwannoma be causing symptoms? Message sent to Kelly SAAVEDRA for review and recommendation. * Telephone Encounter - Selam Mandel - 09/18/2022 12:20 PM EDT General Call Caller : Jovani Contact Reason for Call : Pt has follow up questions after most recent visit. Patient requesting return call ? Yes documented in [facility]Bl[facility] Instructions* Patient Instructions* Kelly Perez PA-C - 09/13/2022 11:29 AM EDT [...] perform on same dariusz. documented in this encounterBlanch[facility]03-29-2023 Nurse Note* Antonia Tripathi MA - 09/13/2022 10:55 AM EDT Additional intake questions: Has the patient had fever, nausea, vomiting, diarrhea, constipation, fatigue for > 1 week? Yes, diarrhea ( 3 times in last 24 hours), fatigue, and Provider Notified Does the patient have a decreased appetite? No Does patient want to see a Winter Intern? No (yes to any of above refer patient to schedulers for dietitian appointment) ) Does patient have any new or increased numbness or tingling of extremities? Yes, left fingers tingling, pain in r calf Is patient interested in fertility information? No Does patient need any prescription refills? No Does patient have an advanced directive in place? No, Patient referred to [facility] Electronically Signed By: Antonia Tripathi MA documented in this encounterBlanchard Valley Health System03-29-2023 History of Present illness Narrative* Kelly Perez PA-C - 09/13/2022 10:44 AM EDT This note was created using Room n Hous[employer]. Subjective Jovani Melendez is a 61 year [...] or pronator drift. Coordination: Romberg sign negative. Zslrod-Wcki-Dtbonw Test normal. Gait: Gait abnormal. Comments: Slightly [...] which included preparing to see the patient, bzrh-uy-nodx patient care, completing clinical documentation, obtaining and/or reviewing separately obtained history, performing a medically appropriate examination, counseling and educating the pat ient/family/caregiver, ordering medications, tests, or procedures, communicating with other HCPs (not separately reported), independently interpreting results (not separately reported), communicatingresults to the patient/family/caregiver, and care coordination (not separately reported). documented in this encounterBlanchard Valley Health System03-16-2023 Evaluation note* Encounter Date Diagnosis Assessment [...] her mid twenties. He will see the [employer]PORATE MANAGER at Dr. Cadena's office today, and will see the [facility] 09/13/22. I do feel pt needs his FMLA extended until 12/16/22. I encouraged him to continue to follow with these doctors, and we will continue to monitor. [facility] Other 02-14-2023 Evaluation note* Encounter Date Diagnosis Assessment Notes Treatment Notes Treatment Clinical Notes 14 Jul, 2022 Sinus pressure (ICD-10 - J34.89) Negative in house influenza, COVID-19 obtained, RSV is positive. 14 Jul, 2022 Osteoarthritis of cervical spine, unspecified spinal osteoarthritis [...] and we will continue to monitor. 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 [facility] Other 01-11-2023 Evaluation note* Encounter Date Diagnosis Assessment Notes Treatment Notes Treatment Clinical Notes Jun, Other complicated headache syndrome (ICD-10 - G44.59) [facility] Other 12-09-2022 Evaluation note* Encounter Date Diagnosis [...] is pending and awaiting referral to Dr. Careny May, Headache (ICD-10 - R51.9) Patient reports [...] check on him again in 1 month. [facility] Other 10-30-2022 Hospital Discharge instructions Additional Instructions [...] week to see how you are doing. [facility] Work Phone: [phone] Miscellaneous Notes* Telephone Encounter - Memo Cole MD - 03/27/2022 3:54 PM EDT Good with me * Telephone Encounter - Asya Reynolds RN - 03/27/2022 2:17 PM EDT Informed patient of your recommendations. He states that he is seeing neurology in [place] and they do not feel he needs to see NS at this point. They are treating him for occipital neuralgia currently. Patient plans to cancel NS appointment. Asya Reynolds RN * Telephone Encounter - Memo Cole MD - 03/27/2022 2:00 PM EDT I don't quite remember what the discussion was - and Helene is gone - I think still worthwhile seeing NS. - not sure what prompted the call 5 months later.... * Telephone Encounter - Asya Reynolds RN - 03/27/2022 12:13 PM EDT Patient got a text over the weekend about an appointment with a [facility] neurosurgeon. He has not seen you since 10/2021. He states st that time you did not see the need for a neurosurgeon as his tumor wastoo small. Now he all of the sudden has an appointment with this [facility] neurosurgeon and is confused. Can you review and advise as to this appointment with the neurosurgeon. Asya Reynolds RN documented in this encounterBlanchard Valley Health System09-29-2022 Miscellaneous Notes* Telephone Encounter - Pamela Nascimento APRN.[facility] - 03/16/2022 2:51 PM EDT Time Frame: Next available Provider: Intra-axial neurosurgeon & Neuro-Oncology (same day) Referring: Memo Cole MD Please instruct patient to hand carry/ upload images prior to appt Dx: Low grade glioma Patient: Jovani Melendez Address: Jovani Melendez [id number] [place] [address] Per Triage: Jovani Melendez is a 61 year old male that requests evaluation of previously diagnosed possible low grade glioma. Patient expectations: Second opinion Tumor Specifics: Location: brain Previous Evaluations: MRI w/wo contrast (10/05/21): 10/05/2021 MRI Brain [facility] Impression: 1. There [...] March 16, 2022 * Telephone Encounter - Ivelisse Dumont - 03/16/2022 12:26 PM EDT MD Memo Gomez MD Future Order Information Expires 10/13/22 Associated Diagnoses Glioma of brain (HCC) [C71.9] Reason for Exam Priority: Routine Dx: Glioma of brain (HCC) [C71.9 (ICD-10-CM)] Order Questions Question Answer [facility] Brain Tumor [facility] Epic access? Yes documented in this encounterBlanchard Valley Health System09-29-2022 Evaluation note* Encounter Date Diagnosis Assessment [...] see if this gives him some relief [facility] Other 08-15-2022 Evaluation note* Encounter Date Diagnosis [...] - G93.9) Patient had another MRI at [facility]. We are awaiting for the results to [...] again next week. We are awaiting for [facility] to fax over the consult and MRI results. Jan, Neck pain (ICD-10 - M54.2) The patients neck pain is persistant but the headache has improved with a medication change. Discussed with Dr. Cadena his persistent neck pain, may need MRI of his neck and/or EMG. Due to his multiple other medications did hold off on any pain medications. [facility] Other 07-11-2022 Evaluation note* Encounter Date Diagnosis [...] blood pressure was elevated upon check in. [facility] Other 06-20-2022 Evaluation note* Encounter Date Diagnosis [...] rule out other causes of his symptoms. [facility] Other 05-24-2022 Evaluation note* Encounter Date Diagnosis [...] will complete the necessary medical disability forms. [facility] Other 05-17-2022 Evaluation note* Encounter Date Diagnosis Assessment Notes Treatment Notes Treatment Clinical Notes October, Glioma of brain (ICD-10 - C71.9) Patient has consulted neurosurgeon, Dr. Narayan, and he is now referring on to Dr. [facility]ny [facility]igil [facility] for [facility] opinion. Reviewed consult note [...] this medication. Will continue to follow up [facility] Other 05-12-2022 History of Present illness Narrative* Memo Cole MD - 10/27/2021 5:05 PM EDT Images from the original note were not included. NAME: Jovani Melendez CLINIC NO.: [id number] DATE OF SERVICE: October 27, 2021 Some elements in this clinic note that are critical to medical decision making have been carefully reviewed and included from a prior clinic note dated: October 13, 2021 Referring Provider: Griselda Krause, DO Additional Clinicians involved in Jovani Melendez's care: Dr Kimberly Nichole ENT, Dr. 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 HPI: Updated Visit, October 27, 2021: [...] COMP METABOLIC PANEL Memo Cole MD, CPE [facility] [place], [place] CC: Griselda Krause, DO [address] [address] [address] Kimberly ELIZABETHS ENT[address] Dr. Nichole ENT Dr. Ibarra CT [facility]. documented in this encounterBlanchard Valley Health System05-09-2022 Evaluation note* Encounter Date Diagnosis Assessment [...] him on to see Dr. Jonny Vigil. [facility] [employer] Other 05-04-2022 Miscellaneous Notes* Telephone Encounter - Haily Jovel [facility] - 10/19/2021 12:56 PM EDT Called [facility] Neuro Office spoke with Leslee. She states they have received patient records/referral and have patient scheduled to see Dr Narayan on 10/24. Haily Jovel [facility] * Telephone Encounter - Asya Gramajo [facility] - 10/18/2021 10:34 AM EDT Records faxed. * Telephone Encounter - Haily Jovel [facility] - 10/13/2021 12:24 PM EDT Noelle: Information ready for you. Haily Jovel Pss * Telephone Encounter - Antonia Mcguire - 10/13/2021 10:33 AM EDT Referral to neurosurgery - Dr. Narayan or Talya Drake/Layo: Can you please refer patient and follow up? Thanks! Antonia Mcguire documented in this encounterBlanchard Valley Health System04-28-2022 History of Present illness Narrative* Memo Cole MD - 10/13/2021 10:19 AM EDT Images from the original note were not included. NAME: MelendezJovani [facility] NO.: [id number] DATE OF SERVICE: October 13, 2021 Some elements in this clinic note that are critical to medical decision making have been carefully reviewed and included from a prior clinic note dated:October 14, 2020 Referring Provider: Griselda Krause, DO Additional Clinicians involved in Jovani Melendez's care: Dr Kimberly Nichole ENT, Dr. 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 HPI: Updated Visit, October 13, 2021: [...] 2020: Doing well, still smokes, works at [employer]. Reviewed scans and there is no evidence [...] adenopathy is identified. 4. 10/05/2021 MRI Brain [facility] Impression: 1. There [...] and neck (HCC) Memo Cole MD, CPE [place], [place] CC: Griselda Krause, [address] [address] [address] Kimberly NEW[place] ENT[address] Dr. Nichole ENT Dr. Ibarra [place] [facility] documented in this encounterBlanchard Valley Health System04-21-2022 Miscellaneous Notes* Telephone Encounter - Memo [...] steps. Asya Kumar RN documented in this encounterBlanchard Valley Health System04-04-2022 Evaluation note* Encounter Date Diagnosis Assessment [...] to continue with monitoring diet and exercise. [facility] Other 03-28-2022 Evaluation note* Encounter Date Diagnosis Assessment Notes Treatment Notes Treatment Clinical Notes Aug, Anxiety and depression (ICD-10 - F41.8) [facility] Other 01-13-2022 Evaluation note* Encounter Date Diagnosis Assessment Notes Treatment Notes Treatment Clinical Notes Jun, Sinusitis (ICD-10 - J32.9) I did prescribe the above medications and work note provided. [facility] Other 01-12-2022 Evaluation note* Encounter Date Diagnosis Assessment Notes Treatment Notes Treatment Clinical Notes Jun, Sinus pressure (ICD-10 - J34.89) Patient advised of negative results. Encouraged him to call if symtpoms persist or worsen, he verbalized understanding. [facility] Other 11-02-2021 Evaluation note* Encounter Date Diagnosis Assessment Notes Treatment Notes Treatment Clinical Notes Apr, Sinus congestion (ICD-10 - R09.81) [facility] Other 10-28-2021 Evaluation note* Encounter Date Diagnosis [...] Encouraged patient to continue with their efforts. [facility] Other 12-01-2016 History general Narrative - Reported* [...] surgery 02/04 19 Hospitalization History see above [facility] Other 12-01-2016 History general Narrative - Reported* [...] 02/04 19 Surgical History [facility] 11/07/2021 Hospitalization History see above [facility] Other 12-01-2016 History general Narrative - Reported* [...] 02/04 19 Surgical History Spinal tap at [facility] 11/07/2021 Hospitalization History see above [facility] Other 12-01-2016 History general Narrative - Reported* [...] dissection 01/2019 Surgical History Spinal tap at [facility] 11/07/2021 Hospitalization History see above [facility] Other 12-01-2016 History general Narrative - Reported* [...] dissection 01/2019 Surgical History Spinal tap at [facility] 11/07/2021 Surgical History LP at [facility] 08/2022 Hospitalization History see above [facility] Other 12-01-2016 History general Narrative - Reported* [...] dissection 01/2019 Surgical History Spinal tap at [facility] 11/07/2021 Surgical History LP at [facility] 08/2022 Hospitalization History see above [facility] Other 12-01-2016 History general Narrative - Reported* [...] dissection 01/2019 Surgical History Spinal tap at [facility] 11/07/2021 Surgical History LP at [facility] 08/2022 Surgical History angioplasty right iliac artery 04/2023 Hospitalization History see above [facility] Other 05-19-2009 History of Present illness Narrative* [...] He saw Dr. Ba a neurologist in [facility]. * He describes his vision as seeing 1-1/2 . He describes this does not seem quite to but finding a time lab between moving his eyes and having the visual change. 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) Malignant neoplasm of head, face, and neck documented in this encounter [facility] SystemEval[facility]* Diagnosis 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 Malignant neoplasm of head, face, and neck Lung nodules Other nonspecific abnormal finding of lung field Malignant neoplasm of head, face and neck (HCC) Malignant neoplasm of head, face, and neck documented in this encounter [facility] noteNo InformationNort Weibu Other Evaluation noteNo assessment information available [facility] Work Phone: Evaluation note* Diagnosis Onset Date Resolution Status Migraine acute [facility] Work Phone: Evaluation note* Diagnosis NPH (normal pressure hydrocephalus) (HCC)- Primary Idiopathic normal pressure hydrocephalus (INPH) documented in this encounter [facility]* Diagnosis 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HCC)- Primary NPH (normal pressure hydrocephalus) (HCC) Idiopathic normal pressure hydrocephalus (INPH) documented in this encounter [facility]* Diagnosis 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HCC) NPH (normal pressure hydrocephalus) (HCC) Idiopathic normal pressure hydrocephalus (INPH) documented in this encounter [facility]* Diagnosis Onset Date Resolution Status Anxiety and depression acute Essential hypertension acute Hyperlipidemia acute Osteoarthritis cervical spine acute PAD (peripheral artery disease) acute [facility] Work Phone: Evaluation note* Diagnosis 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 [facility] Work Phone: Hospital Discharge instructions Additional Instructions Obtain Elsy pot and perform nasal irrigations twice a dayFirelands Regional Medical C[facility] Work Phone: Summary Purpose Family History Unknown Family Member Name Dates Details Family [...] Unknown sister Heart disease Unknown Advance Directives Advance Directive Response Recorded Date/ Time Advance Directives No December 10 8:00pm Advance Directive Response Recorded Date/ Time Advance Directives No December 10 7:00pm Advance Directive Response Recorded Date/ Time Advance Directives No July 07, 2023 8:27am Advance Directive Response Recorded Date/ Time Advance Directives No July 07, 2023 9:27am Documents on File Type Date Recorded 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 [employer]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[employer] Expl anation Living Will 10/05/2023 9:39 AM Chief Complaint and Reason for Visit Chief [...] of brain Hyperlipidemia PAD (peripheral artery disease) Chief Complaint 1 MONTH F/U follow up per brk I70.213 3m F/U; PAD; MARK's B/L legs at 11:30am HBP J01.90 R05.8 Reason for Visit Anxiety and depressi on Essential hypertension Hyperlipidemia Osteoarthritis cervical spine PAD (peripheral artery disease) Anxiety and depression Balance disorder Glioma of brain PAD (peripheral artery disease) Cardiac arrhythmia Glioma of brain Hyperlipidemia PAD (peripheral artery disease) Chief Complaint 1 MONTH F/U follow up per brk I70.213 3m F/U; PAD; MARK's B/L legs at 11:30am HBP J01.90 R05.8 6 weeks 2 month f/u Reason for Visit Anxiety and depressi on Essential hypertension Hyperlipidemia Osteoarthritis cervical spine PAD (peripheral artery disease) Anxiety and depression Balance disorder Cardiac arrhythmia Hyperlipidemia Cardiac arrhythmia Essential hypertension Hyperlipidemia Anxiety and depression Brain mass Essential hypertension Assessments No Assessments Information Available Reason for Referral Specialty Diagnoses / Procedures Referred By Contac t Referred To Contact Neurosurgery Diagnoses Glioma of brain (HCC) Procedures CONSULT TO NEUROSURGERY OFFICE/OUTPATIENT [facility] 60-74 MINUTES Memo Cole MD [address] [place] [address] [place] [address] Referral ID Status Reason Start Date Expiration Date Visits Requested Visits Authorized [id number] Authorized PCP Requested Referral 10/13/2021 10/13/2022 1 1 Specialty Diagnoses / Procedures Referred By Contac t Referred To Contact CT IMAGING Diagnoses Lung nodules Procedures CT CHEST W IVCON DIAGNOSTIC COMPUTED TOMOGRAPHY THORAX W/CONTRAST Memo Cole MD [address] [place] [address] [place] [address] Ct Imaging Referral ID Status Reason Start Date Expiration Date Visits Requested Visits Authorized [id number] Pending Review Auto-Generat ed Referral 10/30/2022 11/29/2022 1 1 Specialty Diagnoses / Procedures Referred By Contac t Referred To Contact CT IMAGING Diagnoses Malignant neoplasm of head, face and neck (HCC) Procedures CT NECK SOFT TISSUE W IVCON CT SOFT TISSUE NECK W/CONTRAST MATERIAL Memo Cole MD [address] [place] [address] [place] [address] Ct Imaging Referral ID Status Reason Start Date Expiration Date Visits Requested Visits Authorized [id number] Pending Review Auto-Generat ed Referral 10/30/2022 11/29/2022 1 1 Reason *FU 10/31 Evaluate and Treat Brainstem Lesion 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) Referral Organization [facility] urosurgery Referring Provider First Name Sheng Referring Provider Last Name Wyatt Referring Provider Specialty Neurosurger y Referred Organization [facility] Referred Provider Jonny Vigil Referred Address [address] [place] [address] ,[place], [place],[address] Referred Provider Specialty Neurological Surgery Referral Priority Routine General Notes Fore, Linnea M 022 02:09:54 PM >Received and fax referral today Reason consult and treat (p t is willing to see him [place], if not then will see at [facility]) 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) Diagnosis 2 Cervical pain (neck) (M54.2) Diagnosis 3 Pressure in head (R5 1.9) Referral Organization [facility] Stephan Referring Provider First Name Griselda Referring Provider Last Name Darling Referring Provider Specialty Family Prac henny Referred Organization [facility] Referred Provider Elvi Cadena Referred Address [address] [place], [place],[address] Referral Priority Routine Specialty Diagnoses / Procedures Referred By Roverto t Referred To Contact MR IMAGING Diagnoses 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HCC) Procedures MRI BRAIN WO/W IVCON MRI BRAIN BRAIN STEM W/O W/CONTRAST MATERIAL Kelly Perez, BILL[address] [place] [address] Mr Imaging Referral ID Status Reason Start Date Expiration Date Visits Requested Visits Authorized [id number] Authorized Auto-Generat ed Referral 09/20/2022 10/20/2023 1 1 Referral ID Status Reason Start Date Expiration Date V isits Requested Visits Authorized [id number] Closed Auto-Generate d Referral 09/20/2022 10/20/2023 1 1 Reason pt requesting n ot Dr. Verma, but can see other providers from that group evaluate and treat tinnitus and balance issues Diagnosis 1 Tinnitus of both ear s (H93.13) Diagnosis 2 Balance disorder (R2 6.89) Referral Organization [facility] Cardiology Referring Provider First Name Lilliam Referring Provider Last Name Kamla Referring Provider Specialty Cardiovascu lar Disease Referred Organization [facility] Referred Provider Manuela Ballesteros Referred Address ,[place], [place],[address] Referred Provider Specialty Ear, Nose an d Throat Referral Priority Routine General Notes Yessica Brown 12:40:36 PM >received today, pt has medicaid insurance, will send to Dr. Ballesteros, attachments made, waiting for notes to be locked Reason consult and treat Diagnosis 1 PAD (peripheral arnie ry disease) (I73.9) Referral Organization [facility] Family Medicin e Stephan Referring Provider First Name Griselda Referring Provider Last Name Darling Referring Provider Specialty [facility] Prac henny Referred Organization [facility] Vascular Surge ry Referred Provider Filipe Hess Referred Address [address] [facility] [address], [place],[address] Referred Provider Specialty Vascular Abdirahman yvon Referral [...] section and content) DATE CREATED AUTHOR 08/01/2019 [facility] ical [facility] DATE CREATED AUTHOR AUTHOR'S ORGANIZ ATION 11/05/2021 [employer] DATE CREATED AUTHOR AUTHOR'S ORGANIZ ATION 01/19/2022 [facility] dical Specialist DATE CREATED AUTHOR AUTHOR'S ORGANIZ ATION 10/02/2022 [facility] DATE CREATED AUTHOR AUTHOR'S ORGANIZ ATION 12/25/2022 [facility] DATE CREATED AUTHOR AUTHOR'S ORGANIZ ATION 02/15/2023 [facility] ical Center DATE CREATED AUTHOR AUTHOR'S ORGANIZ ATION 08/03/2023 [facility] DATE CREATED AUTHOR AUTHOR'S ORGANIZ ATION 10/10/2023 [facility] DATE CREATED AUTHOR AUTHOR'S ORGANIZ ATION 10/26/2023 [facility] dical Specialists EPIC DATE CREATED AUTHOR AUTHOR'S ORGANIZ ATION 10/26/2023 [facility] DATE CREATED AUTHOR AUTHOR'S ORGANIZ ATION 10/28/2023 [facility] DATE CREATED AUTHOR AUTHOR'S ORGANIZ ATION 10/28/2023 [facility] Source Comments (unrecognize d section and content) In the event this informatio n is protected by the Federal Confidentiality of Alcohol and Drug Abuse Patient Records regulations: The Federal rules restrict any use of the information to criminally investigate or prosecute any alcohol or drug abuse patient.[facility] SystemIn the event this information is protected by the Federal Confidentiality of Alcohol and Drug Abuse Patient Records regulations: The Federal rules restrict any use of the information to criminally investigate or prosecute any alcohol or drug abuse patient.[facility] SystemIn the event this information is protected by the Federal Confidentiality of Alcohol and Drug Abuse Patient Records regulations: The Federal rules restrict any use of the information to criminally investigate or prosecute any alcohol or drug abuse patient.[facility] SystemIn the event this information is protected by the Federal Confidentiality of Alcohol and Drug Abuse Patient Records regulations: The Federal rules restrict any use of the information to criminally investigate or prosecute any alcohol or drug abuse patient.[facility] SystemIn the event this information is protected by the Federal Confidentiality of Alcohol and Drug Abuse Patient Records regulations: The Federal rules restrict any use of the information to criminally investigate or prosecute any alcohol or drug abuse patient.[facility] the event this information is protected by the Federal Confidentiality of Alcohol and Drug Abuse Patient Records regulations: The Federal rules restrict any use of the information to criminally investigate or prosecute any alcohol or drug abuse patient.[facility] the event this information is protected by the Federal Confidentiality of Alcohol and Drug Abuse Patient Records regulations: The Federal rules restrict any use of the information to criminally investigate or prosecute any alcohol or drug abuse patient.[facility] the event this information is protected by the Federal Confidentiality of Alcohol and Drug Abuse Patient Records regulations: The Federal rules restrict any use of the information to criminally investigate or prosecute any alcohol or drug abuse patient.[facility] the event this information is protected by the Federal Confidentiality of Alcohol and Drug Abuse Patient Records regulations: The Federal rules restrict any use of the information to criminally investigate or prosecute any alcohol or drug abuse patient.[facility] Reason for Visit (unrecogniz ed section and content) Reason Comments Results Reason Comments Head and Neck Cancer Specialty Diagnoses / Procedures Referred By Contac t Referred To Contact Hematology/Oncology / HEMATOLOGY/ONCOLOGY Diagnoses Follow-up examination 1 year follow up LABS WITH CT Procedures EST PATIENT Memo Cole MD [address] [place] [address] Memo Cole MD [address] [place] [address] [place] [address] Referral ID Status Reason Start Date Expiration Date Visits Re quested Visits Authorized [id number] Closed 10/13/2021 06/17/2022 1 1 Reason Comments Referral Information Neurosurgery Reason Comments Established Patient Specialty Diagnoses / Procedures Referred By Contac t Referred To Contact Hematology/Oncology / HEMATOLOGY/ONCOLOGY Diagnoses 2 week phone follow up [phone] Procedures PHYS/QHP TELEPHONE EVALUATION 5-10 MIN PROVIDER SPECIALTY PHONE CALL Memo Cole MD [address] [place] [address] [place] [address] Memo Cole MD [address] [place] [address] [place] [address] Referral ID Status Reason Start Date Expiration Date Visits Re quested Visits Authorized [id number] Closed 10/27/2021 06/17/2022 1 1 Reason Comments Triage Internal Referral--o ld Reason Comments Appointment Reason Comments New Patient Specialty Diagnoses / Procedures Referred By Contac t Referred To Contact Neurology / BRAIN TUMOR Diagnoses Hydrocephalus (HCC) Hydrocephalus Procedures OFFICE/OUTPATIENT NEW MODERATE MDM 45-59 MINUTES NEW SURGICAL Elvi Cadena MD [address] [place] [id number] Kelly Perez PA-C [address] [place] [address] Referral ID Status Reason Start Date Expiration Date Visits Re quested Visits Authorized [id number] Closed 09/13/2022 06/17/2023 1 1 Reason Comments Patient Question Reason Comments Radiology MRI Specialty Diagnoses / Procedures Referred By Roverto moraes Referred To Contact MR IMAGING Diagnoses 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HCC) Procedures MRI BRAIN WO/W IVCON MRI BRAIN BRAIN STEM W/O W/CONTRAST MATERIAL Kelly Perez PA-C [address] [place] [address] Mr Imaging Referral ID Status Reason Start Date Expiration Date V isits Requested Visits Authorized [id number] Closed Auto-Generate d Referral 09/20/2022 10/20/2023 1 1 Reason Comments New Patient Visit Care Teams (unrecognized sec tion and content) Cardroom Manager Relationship Specialty Start Date End Date Griselda Krause [address] [place], [place] [phone] PCP - General Family Practice 11/20/18 Griselda Krause [address] [place], [place] [phone] Referring Family Practice 11/20/18 Cardroom Manager Relationship Specialty Start Date End Date Griselda Krause [address] [place] [phone] PCP - General Family Practice 11/20/18 Griselda Krause [address] [place] [phone] Referring Family Practice 11/20/18 Cardroom Manager Relationship Specialty Start Date End Date Griselda Krause [address] [place], [place] [phone] PCP - General Family Practice 11/20/18 Griselda Krause [address] [place] [address], [place] [phone] Referring Family Practice 11/20/18 Cardroom Manager Relationship Specialty Start Date End Date Griselda Krause [address] [place] [address], [place] [phone] PCP - General Family Practice 11/20/18 Griselda Krause [address] [place] [address], [place] [address] Referring Family Practice 11/20/18 Cardroom Manager Relationship Specialty Start Date End Date Griselda Krause [address] [place] [address], [place] [phone] PCP - General Family Medicine 11/20/18 Griselda Krause [address] [place] [address], [place] [address] Referring Family Medicine 11/20/18 Cardroom Manager Relationship Specialty Start Date End Date Griselda Krause [address] [place] [address], [place] [phone] PCP - General Family Medicine 11/20/18 Griselda Krause [address] [place] [address], [place] [phone] Referring Family Medicine 11/20/18 Team Status: Inactive [...] Griselda Krause , Primary Care Provider Active Nikole Thomason APRN BODY CORPORATE MANAGER-C Attending Provider A ctive Team Status: Inactive Member Role Status Dates Griselda Darling , Primary Care Provider Active Elvi Cadena MD Attending Provider Active Team Status: Inactive Member Role Status Dates Griselda Darling , Primary Care Provider Active Nikole Thomason APRN BODY CORPORATE MANAGER-C Attending Provider A ctive Cardroom Manager Relationship Specialty Start Date End Date Griselda Krause [address] [place] [address], [place] [phone] PCP - General Family Medicine 11/20/18 Griselda Krause [address] [place] [address], [place] [address] Referring Family Medicine 11/20/18 Elvi Cadena MD [address] [place] [phone] Referring Neurology 08/18/22 Cardroom Manager Relationship Specialty Start Date End Date Griselda Krause [address] [place] [phone] PCP - General Family Medicine 11/20/18 Griselda Krause [address] [place] [address], [place] [address] Referring Family Medicine 11/20/18 Elvi Cadena MD [address] [facility] [address] [place] [address] Referring Neurology 08/18/22 Cardroom Manager Relationship Specialty Start Date End Date Griselda Krause [address] [place] [phone] PCP - General Family Medicine 11/20/[address] [place] [address] Referring Family Medicine 11/20/18 Elvi Cadena MD [address] [facility] [address] [address] Referring Neurology 08/18/22 Team Status: Inactive Member [...] Poornima Krause DO Primary Care Provider Active Lilliam Cason MD Attending Provider Active Team Status: Inactive Member Role Status Dates Griselda Krause DO Primary Care Provider Active Ruddy Harvey MD Attending Provider Active Cardroom Manager Relationship Specialty Start Date End Date Griselda Krause DO [address] [place] [phone] PCP - General Family Medicine 02/13/23 Cardroom Manager Relationship Specialty Start Date End Date Griselda Krause DO [address] [place] [phone] PCP - General Family Medicine 02/13/23 Team Status: Inactive Member Role Status Dates Griselda Krause DO Primary Care Provider Active Sta rt: May 04, 2023 End: May 04, 2023 Nikole Thomason APRN BODY CORPORATE MANAGER-C Attending Provider Active Start: April End: [...] May 30, 2023 End: May 30, 2023 Rudyd Harvey MD Attending Provider Active Start: May [...] 2023 Team Status: Active Member Role Status Dates Griselda Krause DO [...] September 05, 2023 End: September 05, 2023 Cardroom Manager Relationship Specialty Start Date End Date Griselda Krause DO PCP - General 01/03/19 Cardroom Manager Relationship Specialty Start Date End Date Griselda Krause DO [address] [place] [address] [address] [place] [address] PCP - General 01/03/19 [place] [address] [place] [address] Consulting Physician Hematology and Oncology 10/05/23 Team Status: Inactive Member Role Status Poornima Krause DO Primary Care Provide r, Attending Provider Active Start: October 09, 2023 End: October 09, 2023 Team Status: Inactive Member Role Status Poornima Krause DO Primary Care Provider Active Sta rt: October 18, 2023 End: October 18, 2023 Lilliam Cason MD Attending Provider Active Sta rt: October 18, 2023 End: October 18, 2023 Team Status: Active Member Role Status Poornima Krause DO Primary Care Provider Active Sta rt: October 26, 2023 Memo Cole MD Attending Provider Active Start: October 26, 2023 Team Status: Inactive Member Role Status Poornima Krause DO Primary Care Provide r, Attending Provider Active Start: October 29, 2023 End: October 29, 2023 Goals (unrecognized section and content) Goals [...] BE BASED ON THE PRIMARY CLINICAL RECORDS. [employer] [facility]. provides no warranty or guarantee of the accuracy or completeness of information in this document.
--- NOTE | 2023-10-31 09:46 | P.CN_ITS ---
Consult Note: HPI Data of Consult Patient: known to practice within the last 3 years Requesting Physician: Delia Bowser NP Primary Care Provider: GRISELDA KRAUSE Consult Narrative Reason for consult: f/u Narrative: Jovani Kong a pleasant 62 year old male presents for evaluation and management of chronic neck and left shoulder pain. Continues to have moderate to severe neck pain, today pain 5/10 increasing to 8/10 with activity and lifting. Patient utilizing tylenol, ibuprofen, zanaflex, baclofen, norco 5-325 PRN with mild improvement without side effects. Patient could not tolerate gabapentin 100-200, too drowsy, failed baclofen. Patient underwent bilateral C4-5 C5-6 facet medial branch block #2 with no improvement in pain and functional ability. Patient now following with NS for consideration of cervical intervention, recent CT shows worsening of mutilevel foraminal stenosis and disc degeneration. Patient re porting increase in tingling of left arm and 4th/5th digits. cc:: CC: Delia Bowser NP Review of Systems ROS Status of ROS 10 or more systems reviewed and unremark able except as noted in history and below Musculoskeletal Reports: neck pain, extremity pain and joint pain PFSH [facility] Medical History Neck pain ?M54.2 - Cervicalgia (ICD-10) Low back pain ?M54.50 - Low back pain, unspecified (ICD-10) Smoker ?F17.200 - Nicotine dependence, unspecified, uncomplicated (ICD-10) Irregular heart beat ?I49.9 - Cardiac arrhythmia, unspecified (ICD-10) Hypertension ?I10 - Essential (primary) hypertension (ICD-10) Surgical History H/O neck dissection ?Z98.890 - Other specified postprocedural states (ICD-10) Meds Home Medications and Allergies Home Medications ?Medication ?Instructions ?Recorded ?Confirmed ?Type amlodipine 5 mg tablet (Norvasc) 5 mg PO DAILY 04/16/23 10/22/23 History aspirin 81 mg tablet,delayed 81 mg PO DAILY 04/16/23 10/22/23 History release (Adult Low Dose Aspirin) citalopram 20 mg tablet (Celexa) 20 mg PO DAILY 04/16/23 10/22/23 History hydroxyzine HCl 25 mg tablet 25 mg PO BID PRN sleep 04/16/23 10/22/23 History mirtazapine 15 mg tablet 15 mg PO DAILY 04/16/23 10/22/23 History tizanidine 4 mg capsule 4 mg PO DAILY 04/16/23 10/22/23 History hydrocodone 5 mg-acetaminophen 325 1 tab PO DAILY PRN severe pain #30 06/27/23 10/22/23 Rx mg tablet tabs clopidogrel 75 mg tablet (Plavix) 75 mg PO DAILY 08/23/23 10/22/23 History naproxen 250 mg tablet 250 mg PO BID PRN pain 08/23/23 10/22/23 History Allergies Allergy/AdvReac Type Severity Reaction Status Date / Time cephalexin [From Keflex] Allergy Unknown Verified 10/22/23 07:59 Exam Constitutional Documenting provider has reviewed patient's vital signs: yes Common normals: no apparent distress, oriented x3, healthy appearing, alert and well nourished General appearance: cooperative HENMT Common normals: normocephalic, hearing grossly normal bilaterally and moist oral mucous membranes Head and scalp: normocephalic Eye Common normals: PERRL Pupil: PERRL Neck & C-Spine Common normals: full ROM General: normal visual inspection Cervical spine: cervical ROM normal, pain with cervical ROM and paracervical muscle tenderness Other: positive spurlings, decreased sensation following C7 pattern strength 5/5 in BUE facet pain at bilateral C4-5 C5-6 left greater than right Chest Common normals: inspection of chest normal Respiratory Common normals: normal respiratory effort, no retractions and no use of accessory muscles Extremity Left upper extremity: shoulder joint Other: good ROM, empty can test negative, scratch test negative, no pain with cross adduction. Neuro Common normals: oriented x3, CN's II-XII intact bilaterally, moves all extremities, no focal motor deficits, no sensory deficits noted, deep tendon reflexes 2+ bilaterally and gait normal Sensorium/orientation: alert Motor exam: strength 5/5 throughout and no movement abnormalities noted Psych Common normals: mental status grossly normal, thought process normal, cooperative, affect normal, speech normal and activity/motor behavior normal Speech: normal speech Thought process: normal thought process Results Additional Findings Additional findings: If on a controlled substance or opioids, I have checked an [place] report on this patient and there are no aberrancies noted in the prescribing history.??If on a controlled substance or opioid a drug screen was completed and reviewed within the last year, and if there has not been a drug screen completed we ordered one today to monitor higher risk, state monitored pain medication use. As part of providing excellent, safe, comprehensive care, the following was completed at our patient's visit: 1. A medication reconciliation and review to ensure accurate knowledge of current/active medications, including asking our patients to inform us about any [id number] medications or herbal remedies/nutritional supplements/alternative remedies. 2. A review to specifically ensure our patients have had annual screening for screening for depression, screening for tobacco use, and screening for unhealthy alcohol use. For concerning screenings had a discussion with the patient, provided patient education, and recommended follow-up with primary care provider when appropriate. If patient noted with a risk of falling, they received educat ion on strength, gait, and balance training to prevent future risk of falling. 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 The patient does not report intolerable side effects. The patient is NOT opioid naive and non-pharmacologic and non-opioid treatment has failed to significantly relieve the patient's pain and improve functionality. The patient has a diagnosis that is related to a somatic or visceral pain etiology. ? ?? I reviewed with the patient the potential risks and side effects with the use of? opioid medications including but not limited to respiratory depression,? sedation, and even . I verified the patient has access to naloxone should? these effects occur. I advised the patient to avoid the use of any other? sedation substances including alcohol, THC, and benzodiazepines while? taking opioid medications due to the risk of compounding side effects and? detrimental outcomes. I reviewed the [employer], pain treatment agreement, urine? drug screen, and opioid start talking forms. The patient was advised to let? their family know they had Naloxone in case they would need to administer? the medication.? ?? A drug screen was completed within the last year, and no aberrancies were noted regarding their use of controlled substances. The patient understands they are subject to the terms and conditions of the pain contract that they have signed. ? ?? I have checked an [place]AR[place] report on this patient today and there are no aberrancies noted in the prescribing history.? Plan cancel bilateral C4-5 C5-6 MBB #2 working towards RFA increase tizanidine 4mg BID PRN myofascial pain increase norco 5-325mg BID PRN moderate to severe pain 45 tabs/30 days as discussed. risks vs benefits reviewed. functional goals to improve ADLs, decrease pain with activity, improve sleep upcoming NS consult next week, will review notes before formulating additional injection plan. Discussed repeat left C5/6 C6/7 MARGI as prior injection provided >50% improvement in pain/radicular symptoms and functional improvement for 3 months f/u with our office 1 month
== END 2023-10-31 09:12 | disposition home or self-care (01) ==
PROVIDERS: PCP Family Medicine; Visit Provider Nurse Practitioner
DX: M47.812 Spondylosis without myelopathy or radiculopathy, cervical region (principal); M54.12 Radiculopathy, cervical region; M48.02 Spinal stenosis, cervical region; M50.30 Other cervical disc degeneration, unspecified cervical region; M25.512 Pain in left shoulder; M79.18 Myalgia, other site; Z79.891 Long term (current) use of opiate analgesic
CPT/HCPCS: G0463

== ENCOUNTER 2023-11-28 13:10 | Outpatient (OUT) | payer OTHER, SELFPAY ==
--- NOTE | 2023-11-28 13:27 | P.CN_ITS ---
Consult Note: HPI Data of Consult Patient: known to practice within the last 3 years Requesting Physician: Delia Bowser NP Primary Care Provider: GRISELDA KRAUSE Consult Narrative Reason for consult: f/u Narrative: Jovani Kong a pleasant 62 year old male presents for evaluation and management of chronic neck and left shoulder pain. Continues to have moderate to severe neck pain, today pain 5/10 increasing to 8/10 with activity and lifting. Patient utilizing tylenol, ibuprofen, zanaflex, baclofen, norco 5-325 PRN with mild improvement without side effects. Patient could not tolerate gabapentin 100-200, too drowsy, failed baclofen. Patient underwent bilateral C4-5 C5-6 facet medial branch block #2 with no improvement in pain and functional ability. Patient now following with NS for consideration of cervical intervention, recent CT shows worsening of mutilevel foraminal stenosis and disc degeneration. Patient re porting increase in tingling of left arm and 4th/5th digits. Previously found significant benefit to left C5/6 C6/7 TFESI, greater than 50% improvement in radicular pain and symptoms greater than 3 months. cc:: CC: Delia Bowser NP Review of Systems ROS Status of ROS 10 or more systems reviewed and unremark able except as noted in history and below Musculoskeletal Reports: neck pain and extremity pain PFSH PFSH Medical History Neck pain ?M54.2 - Cervicalgia (ICD-10) Low back pain ?M54.50 - Low back pain, unspecified (ICD-10) Smoker ?F17.200 - Nicotine dependence, unspecified, uncomplicated (ICD-10) Irregular heart beat ?I49.9 - Cardiac arrhythmia, unspecified (ICD-10) Hypertension ?I10 - Essential (primary) hypertension (ICD-10) Surgical History H/O neck dissection ?Z98.890 - Other specified postprocedural states (ICD-10) Meds Home Medications and Allergies Home Medications ?Medication ?Instructions ?Recorded ?Confirmed ?Type amlodipine 5 mg tablet (Norvasc) 5 mg PO DAILY 04/16/23 10/22/23 History aspirin 81 mg tablet,delayed 81 mg PO DAILY 04/16/23 10/22/23 History release (Adult Low Dose Aspirin) citalopram 20 mg tablet (Celexa) 20 mg PO DAILY 04/16/23 10/22/23 History hydroxyzine HCl 25 mg tablet 25 mg PO BID PRN sleep 04/16/23 10/22/23 History mirtazapine 15 mg tablet 15 mg PO DAILY 04/16/23 10/22/23 History tizanidine 4 mg capsule 4 mg PO DAILY 04/16/23 10/22/23 History hydrocodone 5 mg-acetaminophen 325 1 tab PO DAILY PRN severe pain #30 06/27/23 10/22/23 Rx mg tablet tabs clopidogrel 75 mg tablet (Plavix) 75 mg PO DAILY 08/23/23 10/22/23 History naproxen 250 mg tablet 250 mg PO BID PRN pain 08/23/23 10/22/23 History hydrocodone 5 mg-acetaminophen 325 1 tab PO BID PRN pain #45 tabs 10/31/23 Rx mg tablet tizanidine 4 mg tablet 4 mg PO BID PRN muscle spasticity 10/31/23 Rx #60 tabs Allergies Allergy/AdvReac Type Severity Reaction Status Date / Time cephalexin [From Keflex] Allergy Unknown Verified 10/22/23 07:59 Exam Constitutional Documenting provider has reviewed patient's vital signs: yes Common normals: no apparent distress, oriented x3, healthy appearing, alert and well nourished General appearance: cooperative HENNM Common normals: normocephalic, hearing grossly normal bilaterally and moist oral mucous membranes Head and scalp: normocephalic Eye Common normals: PERRL Pupil: PERRL Neck & C-Spine Common normals: full ROM General: normal visual inspection Cervical spine: cervical ROM normal, pain with cervical ROM and paracervical muscle tenderness Other: positive spurlings, decreased sensation following C5,6,7 pattern strength 5/5 in BUE facet pain and loading positive bilaterally Chest Common normals: inspection of chest normal Respiratory Common normals: normal respiratory effort, no retractions and no use of accessory muscles Extremity Left upper extremity: shoulder joint Other: good ROM, empty can test negative, scratch test negative, no pain with cross adduction. Neuro Common normals: oriented x3, CN's II-XII intact bilaterally, moves all extremities, no focal motor deficits, no sensory deficits noted and deep tendon reflexes 2+ bilaterally Sensorium/orientation: alert Motor exam: strength 5/5 throughout and no movement abnormalities noted Psych Common normals: mental status grossly normal, thought process normal, cooperative, affect normal, speech normal and activity/motor behavior normal Speech: normal speech Thought process: normal thought process Results Additional Findings Additional findings: If on a controlled substance or opioids, I have checked an [place]AR[place] report on this patient and there are no aberrancies noted in the prescribing history.??If on a controlled substance or opioid a drug screen was completed and reviewed within the last year, and if there has not been a drug screen completed we ordered one today to monitor higher risk, state monitored pain medication use. As part of providing excellent, safe, comprehensive care, the following was completed at our patient's visit: 1. A medication reconciliation and review to ensure accurate knowledge of current/active medications, including asking our patients to inform us about any [id number] medications or herbal remedies/nutritional supplements/alternative remedies. 2. A review to specifically ensure our patients have had annual screening for screening for depression, screening for tobacco use, and screening for unhealthy alcohol use. For concerning screenings had a discussion with the patient, provided patient education, and recommended follow-up with primary care provider when appropriate. If patient noted with a risk of falling, they received education on strength, gait, and balance training to prevent future risk of falling. 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 The patient does not report intolerable side effects. The patient is NOT opioid naive and non-pharmacologic and non-opioid treatment has failed to significantly relieve the patient's pain and improve functionality. The patient has a diagnosis that is related to a somatic or visceral pain etiology. ? ?? I reviewed with the patient the potential risks and side effects with the use of? opioid medications including but not limited to respiratory depression,? sedation, and even . I verified the patient has access to naloxone should? these effects occur. I advised the patient to avoid the use of any other? sedation substances including alcohol, THC, and benzodiazepines while? taking opioid medications due to the risk of compounding side effects and? detrimental outcomes. I reviewed the HEALTH PLAN MANAGER, pain treatment agreement, urine? drug screen, and opioid start talking forms. The patient was advised to let? their family know they had Naloxone in case they would need to administer? the medication.? ?? A drug screen was completed within the last year, and no aberrancies were noted regarding their use of controlled substances. The patient understands they are subject to the terms and conditions of the pain contract that they have signed. ? ?? I have checked an OARRS report on this patient today and there are no aberrancies noted in the prescribing history.? Plan stop tizanidine, start methocarbamol 500mg BID PRN myofascial pain/spasms cannot take NSAIDs, supposed to be on plavix but has stopped and is taking two baby aspirin daily as prophylaxis continue norco 5-325mg BID PRN moderate to severe pain 45 tabs/30 days as discussed. risks vs benefits reviewed. functional goals to improve ADLs, decrease pain with activity, improve sleep upcoming NS consult 12/11 for second opinion, will review notes before formulating additional injection plan. Discussed repeat left C5/6 C6/7 MARGI as prior injection provided >50% improvement in pain/radicular symptoms and functional improvement for 3 months f/u with our office after MARGI
== END 2023-11-28 13:11 | disposition home or self-care (01) ==
PROVIDERS: PCP Family Medicine; Visit Provider Nurse Practitioner
DX: M47.812 Spondylosis without myelopathy or radiculopathy, cervical region (principal); M48.02 Spinal stenosis, cervical region; M50.30 Other cervical disc degeneration, unspecified cervical region; M25.512 Pain in left shoulder; G56.82 Other specified mononeuropathies of left upper limb; G56.92 Unspecified mononeuropathy of left upper limb; M79.18 Myalgia, other site; Z79.891 Long term (current) use of opiate analgesic
CPT/HCPCS: G0463

== ENCOUNTER 2023-12-17 10:48 | Day surgery (SDC) | payer OTHER, SELFPAY ==
[2023-12-17 10:52] VITALS: BP 144/87; PULSE 70; TEMP 37.2; O2SAT 100
[2023-12-17 11:26] VITALS: BP 127/68; PULSE 84; O2SAT 95
[2023-12-17] MEDS: IOHEXOL 240 MG/ML - 10 ML VIAL INJ (11:28)
[2023-12-17] MEDS: BUPIVACAINE HCL 0.25% PF 25 MG/10 ML VIAL INJ (11:28)
[2023-12-17] MEDS: DEXAMETHASONE SOD PHOS 10 MG/ML VIAL INJ (11:28)
[2023-12-17 11:29] VITALS: BP 134/68; PULSE 86; O2SAT 92
[2023-12-17] MEDS: LIDOCAINE HCL 2% 400 MG/20 ML MDV 3 ML INJ (11:29)
--- NOTE | 2023-12-24 09:42 | P.ON_ITS ---
Date of procedure: 12/17/23 Pre-op diagnosis: Pain due to cervical radiculopathy Post-op diagnosis: same as pre-op Procedure: Procedure: Left C5-6, 6-7 transforaminal epidural steroid injection Medications: Bupivacaine 0.25% 2cc, lidocaine 2% 1cc, dexamethasone 10mg The patient was seen and examined in the preoperative holding area.? Informed consent was obtained and placed on the chart.? Patient was brought to the medical procedure unit and placed in the prone position where a timeout was completed verifying the correct patient, procedure site, position, and planned special equipment using sterile aseptic technique.? Under direct fluoroscopic visualization a 25-gauge Quincke tipped spinal needle was advanced to the designated neural foramen where contrast dye was injected to show adequate spread.? The needle was inserted at level left C5-6. There was no evidence of v ascular or adverse uptake.? Epidural spread was appreciated.? The above- mentioned injectate was then placed in a 1.5 mL aliquot preceded by negative aspiration.? The needle was removed. The needle was inserted and the procedure repeated at level left C6-7.? The surgery site was covered.? Patient was taken to the postprocedural recovery area and monitored for an appropriate length of time before found suitable for discharge in the accompaniment of a responsible adult. Surgeon: Sarina Ramsey Pathology: none sent Condition: stable Disposition: no change
== END 2023-12-17 11:34 | disposition home or self-care (01) ==
LOC: SURGOUT 10:49
PROVIDERS: PCP Family Medicine; Visit Provider Anesthesiology
DX: M54.12 Radiculopathy, cervical region (principal)
CPT/HCPCS: 64479; 64480; J0665; J1100; Q9966

== ENCOUNTER 2023-12-27 09:28 | Outpatient (OUT) | payer OTHER, SELFPAY ==
--- NOTE | 2023-12-27 09:38 | PM.CN ---
Consult Note: HPI Data of Consult Patient: known to practice within the last 3 years Requesting Physician: Delia Bowser NP Primary Care Provider: GRISELDA KRAUSE Consult Narrative Reason for consult: f/u Narrative: Jovani Kong a pleasant 62 year old male presents for evaluation and management of chronic neck and left shoulder pain. Continues to have moderate to severe neck pain, today pain 7/10 increasing to 10/10 with activity and lifting. Patient utilizing tylenol, ibuprofen, norco 5-325 PRN with mild improvement without side effects. Patient could not tolerate gabapentin 100-200, too drowsy, failed baclofen. Patient underwent bilateral C4-5 C5-6 facet medial branch block #2 with no improvement in pain and functional ability. Patient now following with NS for consideration of surgical intervention, recent CT shows worsening of mutilevel foraminal stenosis and disc degeneration. Patient reporting increase in tingling of left arm and 4th/5th digits. Recent left C5/6 C6/7 TFESI providing no ongoing relief, reports significant relief >90% for 18 hours. cc:: CC: Delia Bowser NP Review of Systems ROS Status of ROS 10 or more systems reviewed and unremarkable except as noted in history and below Musculoskeletal Reports: neck pain and extremity pain PFSH PFSH Medical History Neck pain ?M54.2 - Cervicalgia (ICD-10) Low back pain ?M54.50 - Low back pain, unspecified (ICD-10) Smoker ?F17.200 - Nicotine dependence, unspecified, uncomplicated (ICD-10) Irregular heart beat ?I49.9 - Cardiac arrhythmia, unspecified (ICD-10) Hypertension ?I10 - Essential (primary) hypertension (ICD-10) Surgical History H/O neck dissection ?Z98.890 - Other specified postprocedural states (ICD-10) Meds Home Medications and Allergies Home Medications ?Medication ?Instructions ?Recorded ?Confirmed ?Type amlodipine 5 mg tablet (Norvasc) 5 mg PO DAILY 04/16/23 12/17/23 History aspirin 81 mg tablet,delayed 81 mg PO DAILY 04/16/23 12/17/23 History release (Adult Low Dose Aspirin) hydroxyzine HCl 25 mg tablet 25 mg PO BID PRN sleep 04/16/23 12/17/23 History mirtazapine 15 mg tablet 15 mg PO DAILY 04/16/23 12/17/23 History hydrocodone 5 mg-acetaminophen 325 1 tab PO DAILY PRN severe pain #30 06/27/23 12/17/23 Rx mg tablet tabs ibuprofen 600 mg tablet (IBU) 600 mg PO BID 11/28/23 12/17/23 History buspirone 5 mg tablet 5 mg PO TID 12/17/23 12/17/23 History tizanidine 4 mg capsule mg 12/17/23 History Allergies Allergy/AdvReac Type Severity Reaction Status Date / Time cephalexin [From Keflex] Allergy Unknown Verified 12/17/23 11:03 Exam Constitutional Documenting provider has reviewed patient's vital signs: yes Common normals: no apparent distress, oriented x3, healthy appearing, alert and well nourished General appearance: cooperative HENMT Common normals: normocephalic, hearing grossly normal bilaterally and moist oral mucous membranes Head and scalp: normocephalic Eye Common normals: PERRL Pupil: PERRL Neck & C-Spine Common normals: full ROM General: normal visual inspection Cervical spine: cervical ROM normal, pain with cervical ROM and paracervical muscle tenderness Other: positive spurlings, decreased sensation following C5,6,7 pattern strength 5/5 in BUE facet pain and loading positive bilaterally Chest Common normals: inspection of chest normal Respiratory Common normals: normal respiratory effort, no retractions and no use of accessory muscles Extremity Left upper extremity: shoulder joint Other: good ROM, empty can test negative, scratch test negative, no pain with cross adduction. Neuro Common normals: oriented x3, CN's II-XII intact bilaterally, moves all extremities, no focal motor deficits, no sensory deficits noted and deep tendon reflexes 2+ bilaterally Sensorium/orientation: alert Motor exam: strength 5/5 throughout and no movement abnormalities noted Psych Common normals: mental status grossly normal, thought process normal, cooperative, affect normal, speech normal and activity/motor behavior normal Speech: normal speech Thought process: normal thought process Results Additional Findings Additional findings: If on a controlled substance or opioids, I have checked an [place]ARRS report on this patient and there are no aberrancies noted in the prescribing history.??If on a controlled substance or opioid a drug screen was completed and reviewed within the last year, and if there has not been a drug screen completed we ordered one today to monitor higher risk, state monitored pain medication use. As part of providing excellent, safe, comprehensive care, the following was completed at our patient's visit: 1. A medication reconciliation and review to ensure accurate knowledge of current/active medications, including asking our patients to inform us about any gzqt-sul-faxpsay medications or herbal remedies/nutritional supplements/alternative remedies. 2. A review to specifically ensure our patients have had annual screening for screening for depression, screening for tobacco use, and screening for unhealthy alcohol use. For concerning screenings had a discussion with the patient, provided patient education, and recommended follow-up with primary care provider when appropriate. If patient noted with a risk of falling, they received education on strength, gait, and balance training to prevent future risk of falling. 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 The patient does not report intolerable side effects. The patient is NOT opioid naive and non-pharmacologic and non-opioid treatment has failed to significantly relieve the patient's pain and improve functionality. The patient has a diagnosis that is related to a somatic or visceral pain etiology. ? ?? I reviewed with the patient the potential risks and side effects with the use of? opioid medications including but not limited to respiratory depression,? sedation, and even . I verified the patient has access to naloxone should? these effects occur. I advised the patient to avoid the use of any other? sedation substances including alcohol, THC, and benzodiazepines while? taking opioid medications due to the risk of compounding side effects and? detrimental outcomes. I reviewed the EMBEDDED NURSE, pain treatment agreement, urine? drug screen, and opioid start talking forms. The patient was advised to let? their family know they had Naloxone in case they would need to administer? the medication.? ?? A drug screen was completed within the last year, and no aberrancies were noted regarding their use of controlled substances. The patient understands they are subject to the terms and conditions of the pain contract that they have signed. ? ?? I have checked an OARRS report on this patient today and there are no aberrancies noted in the prescribing history.? Plan Update UDS today continue methocarbamol 500mg BID PRN myofascial pain/spasms cannot take NSAIDs, supposed to be on plavix but has stopped and is taking two baby aspirin daily as prophylaxis continue norco 5-325mg BID PRN moderate to severe pain 45 tabs/30 days as discussed. risks vs benefits reviewed. functional goals to improve ADLs, decrease pain with activity, improve sleep planning for NS intervention, upcoming appointment 01/03/24 to discuss surgical plan defer additional ESIs at this time f/u 3 months, sooner if needed
== END 2023-12-27 09:29 | disposition home or self-care (01) ==
LOC: PM 09:28
PROVIDERS: PCP Family Medicine; Visit Provider Nurse Practitioner
DX: M47.22 Other spondylosis with radiculopathy, cervical region (principal); M48.02 Spinal stenosis, cervical region; M50.10 Cervical disc disorder with radiculopathy, unspecified cervical region; M25.512 Pain in left shoulder; G58.8 Other specified mononeuropathies; G56.90 Unspecified mononeuropathy of unspecified upper limb; M79.18 Myalgia, other site; Z79.899 Other long term (current) drug therapy
CPT/HCPCS: G0463

== ENCOUNTER 2024-03-11 18:19 | Emergency (ER) | payer OTHER, SELFPAY ==
--- OUTSIDE RECORDS SUMMARY | 2024-03-11 18:28 | XMS_ITS | CCD ---
Author Organization [facility] Care Team Providers Care Global Cto Name Role Phone Griselda Hastings Primary Care Provider Griselda Hastings Attending Provider Griselda Hastings Unavailable Unavailable Unavailable Griselda Hastings Unavailable Sheng Schneider Unavailable Griselda Hastings Primary Care Provider Griselda Hastings Unavailable DO Griselda Hastings Primary Care Provider MD Elvi Cadena Attending Provider [phone] BAILEY Gaytan Emergency Provider MD Landy Wong Jr Emergency Provider Unavailable Unavailable DO Griselda Hastings Primary Care Provider MD Elvi Cadena Attending Provider BAILEY Gaytan Emergency Provider MD Landy Wong Jr Emergency Provider BAILEY Thomason Attending Provider BAILEY Thomason Attending Provider DO Griselda Hastings Primary Care Provider [phone] MD Elvi Cadena Attending Provider [phone] Trish Carney Unavailable Kuns, Griselda Adriana Primary Care Provider [phone] KunGriselda meneses Unavailable Tammi NORRIS, Elvi Ruiz Unavailable DEMOND CAT Attending Unavailable DEMOND CAT Admitting Unavailable KUNS, GRISELDA ADRIANA Primary Care Unavailable Kuns, DO Griselda Primary Care Provider Kuns, DO Griselda Attending Provider MD Lima Joseph Attending Provider Dr. BRET HDEZ Attending Unavailable PCP, OTHER Primary Care Unavailable PCP, Other Primary Care Physician Kuns, DO Griselda Primary Care Provider BAILEY Gaytan Emergency Provider [phone] DO Rohit Agrawal Emergency Provider Nelida, DO Camara Attending Provider Lilliam Cason Unavailable Andraes, DO Griselda Primary Care Provider BAILEY Gaytan Emergency Provider TuDO Rohit saavedra Emergency Provider Nelida, DO Grsielda Attending Provider [phone] MD Lilliam Cason Attending Provider [phone] Ruddy Harvey Unavailable BAILEY Thomason Attending Provider MD Ruddy Harvey Attending Provider Kuns, DO Griselda Primary Care Provider Kuns DO, Griselda R Primary Care Provider Kuns, DO Griselda Primary Care Provider ADDIS KHAN Attending Unavailable ADDIS KHAN Referring Unavailable KUNS, GRISELDA R Primary Care Unavailable ADDIS KHAN Attending Unavailable ADDIS KHAN Referring Unavailable KUNS, GRISELDA R Primary Care Unavailable Kuns, DO Griselda Primary Care Provider MD Ruddy Harvey Attending Provider [phone] Kuns DO, Griselda R Primary Care Provider Kuns DO, Griselda R Primary Care Provider Ignacia Jack MD Unavailable Kuns, DO Griselda Attending Provider Kuns, Griselda Attending Unavailable Kuns, Griselda Admitting Unavailable Kuns, Griselda Primary Care Unavailable Kuns, Griselda Primary Care Unavailable Langenberg, Ruddy T Admitting Unavailabl e Langenberg, Ruddy T Attending Unavailabl e Kuns, Griselda Primary Care Unavailable Tupa, Rohit M Admitting Unavailable Tupa, Rohit M Attending Unavailable John Gaytanothy Attending Unavailable Kuns, Griselda Primary Care Unavailable LucilaJohnDaniel Admitting Unavailable Kuns, Griselda Attending Unavailable Kuns, Griselda Admitting Unavailable Kuns, Griselda Primary Care Unavailable iLma Joseph Admitting Unavailable Lima Joseph Attending Unavailable Kuns, Griselda Primary Care Unavailable Kuns, Griselda Primary Care Unavailable Kuns, Griselda Attending Unavailable Kuns, Griselda Admitting Unavailable Kamla, Lilliam Admitting Unavailable KamlaNamrata liraa Attending Unavailable Kuns, Griselda Primary Care Unavailable GrazianiLindaNikole M Admitting Unavailab le Graziani, Nikole M Attending Unavailab le Kuns, Griselda Primary Care Unavailable Kuns, Griselda Primary Care Unavailable Langenberg, Ruddy T Admitting Unavailabl e Langenberg, Ruddy T Attending Unavailabl e Kuns, Griselda Primary Care Unavailable Langenberg, Ruddy T Admitting Unavailabl e Langenberg, Ruddy T Attending Unavailabl e Kuns, Griselda Adriana Primary Care Provider [phone] Tammi NORRIS, Elvi Ruiz Unavailable [phone] ABHYANKAR, MEMO Referring Unavailable ABHYANKAR, MEMO Attending Unavailable KUNS, GRISELDA ADRIANA Primary Care Unavailable ABHYANKAR, MEMO Referring Unavailable KUNS, GRISELDA ADRIANA Primary Care Unavailable Roxy NORRIS, Sarina Badillo Attending Unavailable Giedraitis , Sarina Badillo Attending Unavailable Giedraitis , Andguillaume Badillo Attending Unavailable Giedraitis , Andguillaume Badillo Attending Unavailable Giedraitis , Andguillaume Badillo Attending Unavailable Giedraitis , Andguillaume Badillo Attending Unavailable Giedraitis , Sarina Badillo Attending Unavailable SOLOMON TREVIZO Attending Unavailable KUNS, GRISELDA R Primary Care Unavailable BARAHONA, XIAOFEI Attending Unavailable KUNS, GRISELDA R Primary Care Unavailable NIKOLE THOMASON Attending Unavailab le GRAZIANNIKOLE Wright Attending Unavailab le GRAZIANINIKOLE Referring Unavailab le GRAZIANI, NIKOLE Mullins Attending Unavailab le GRAZIANNIKOLE Wright Attending Unavailab le GRAZIANNeeta, NIKOLE Mullins Attending Unavailab yasmani LACONIJEREMY Meneses Attending Unavailable JEREMY DISLA Referring Unavailable JOSE MARRUFO Attending Unavailable ELVI CADENA Attending Unavailable ELVI CADENA Referring Unavailable NIKOLE THOMASON Attending Unavailab KARIME Mueller Attending Unavailable ELVI CADENA Attending Unavailable LANDY ROSS Attending Unavailable ELVI CADENA Attending Unavailable NIKOLE THOMASON Attending Unavailab le BARAHONA, XIAOFEI Referring Unavailable KUNS, GRISELDA R Primary Care Unavailable BARAHONA, XIAOFEI Referring Unavailable KUNS, GRISELDA R Primary Care Unavailable BARAHONA, XIAOFEI Referring Unavailable KUNS, GRISELDA R Primary Care Unavailable LIBBY GROSS Referring Unavailable KUNS, GRISELDA R Primary Care Unavailable IGNACIA JACK Attending Unavailable KUNS, GRISELDA R Primary Care Unavailable SOTAK, SHIMON K Referring Unavailable KUNS, GRISELDA R Primary Care Unavailable IGNACIA JACK Attending Unavailable SOTAK, SHIMON K Referring Unavailable KUNS, GRISELDA R Primary Care Unavailable BARAHONA, XIAOFEI Admitting Unavailable BARAHONA, XIAOFEI Attending Unavailable KUNS, GRISELDA R Primary Care Unavailable KUNS, GRISELDA R Primary Care Unavailable BARAHONA, XIAOFEI Referring Unavailable KUNS, GRISELDA R Primary Care Unavailable BARAHONA, XIAOFEI Referring Unavailable KUNS, GRISELDA R Primary Care Unavailable BARAHONA, XIAOFEI Admitting Unavailable BARAHONA, XIAOFEI Attending Unavailable KUNS, GRISELDA R Primary Care Unavailable Unavailable Unavailable Unavailable Allergies Allergy Classification Reported Allergen(s) Allergy Type Date of Onset Reaction(s) Facility Cephalosporins (antibiotic) (1 source) Cephalexin Drug Allergy 8 [facility] (20 sources) Cephalexin; Translations: [CEPHALEXIN] Drug Allergy 8 [facility] (20 sources) Cephalexin; Translations: [Keflex] Drug Allergy rash [facility] [place] Other (1 source) Cephalexin; Translations: [[facility]] [facility] [place] ([facility] Keflet; Translations: [KEFLET] Propensity to adverse reactions 4 [facility] (1 source) ALLERGIES NOT ON FILE; Translations: [ALLERGIES NOT ON FILE] Propensity to adverse reactions (disorder) [facility] NEGATED: Highlighted row has been ruled out! (1 source) natural latex rubber; Translations: [LATEX, NATURAL RUBBER] Drug allergy (disorder) [facility] [place] NEGATED: Highlighted row has been ruled out! (1 source) No IV Contrast Allergy.; Translations: [IV Dye, Iodine Containing] Drug allergy (disorder) [facility] [place] Medications Current Medications Medication Drug Class(es) Dates Sig (Normalized) Sig (Original) acetaminophen 325 mg / HYDROcodone bitartrate 5 mg oral tablet (20 sources) Opioid Agonist Start: 09-05-2023 take 1 tablet by mouth every eight hours Hydrocodone-Aceta minophen Active TAB PO Every 8 hours September 05, 2023 12:00am Start: 06-04-2023 take 1 tablet by myles once daily as needed for pain HYDROcodone-acetaminophen (NORCO) 5-325 mg per tablet take 1 tablet orally daily NEEDED FOR PAIN MUST LAST 30 DAYS 0 06/04/2023 Active Start: 12-10-2017 End: 04-29-2018 take 1 tablet by mouth every four hours Hydrocodone-Acetaminophen ([place]) 5-325 mg tablet Discontinued 1 TAB PO Q4H December 10, 2017 April 29, 2018 3:12pm ALPRAZolam 0.25 mg oral tablet (20 sources) Benzodiazepine Start: 01-31-2024 take 1 tablet by mouth once daily Alprazolam (Xanax) 0.25 mg tablet Active 0.25 MG PO Daily January 31, 2024 12:00am Start: 09-12-2021 take 1 tablet by myles th once daily as needed ALPRAZolam (XANAX) 0.25 mg tablet Take 0.25 mg by mouth once daily as needed. 0 09/12/2021 Active take 1 tablet by myles th every twelve hours ALPRAZolam 0.25 MG 1 tablet Orally Twice a day prn Active Comment on above: Take 0.25 mg by mout h once daily as needed. amLODIPine (20 sources) Dihydropyridine Calcium Channel Clara Start: take 1 tablet by mouth once daily Amlodipine Active 0 .ROUTE .COMPLEX November 29, 2023 12:15pm take 1 tablet orally daily Start: 09-05-2023 End: 11-29-2023 take 10 mg by mouth once daily Amlodipine Discontinued 10 MG PO Daily September 05, 2023 12:00am November 29, 2023 12:15pm Start: 03-15-2023 End: 09-05-2023 take 1 tablet [...] day Active azithromycin 250 mg oral tablet (20 sources) Macrolide Antimicrobial Start: 07-02-19 Zithromax Z-Slim 250 MG as directed Orally as directed 1 pack Jun, Active Start: 12-05-2022 Zithromax Z-Pa k 250 MG as directed Orally Nov, Active Start: 11-02-2022 End: 11-02-2023 azithromycin (ZITHROMAX) 250 mg tablet Take by mouth as directed. TAKE 2 TABLETS BY MOUTH TODAY, THEN TAKE 1 TABLET DAILY FOR 4 DAYS 11/02/2022 11/02/2023 Discontinued (Discontinued by Patient) Start: 08-01-2022 Zithromax Z-Pa k 250 MG [...] 90 days 2 each 3 07/20/2023 Active busPIRone hydrochloride 5 mg oral tablet (1 source) Start: 01-31-2024 Buspirone Active 5 MG PO January 31, 2024 12:00am citalopram 10 mg oral tablet (20 sources) Serotonin Reuptake Inhibitor Start: 12-03-2023 take 1 tablet by mouth once daily Citalopram (Celexa) 10 mg tablet Active 10 MG PO Daily December 03, 2023 12:00am Start: 12-26-2021 End: 12-03-2023 take 1 tablet by mouth once daily Citalopram Discontinued 20 MG PO Daily August 02, 2023 1:00am December 03, 2023 10:48am FreeTextSi tablet Orally Once a day; Note: Source Status: Continue; Provider: Nelida Driver Start: 10-22-2018 take 1 tablet by myles once daily citalopram (CELEXA) 40 mg tablet Take 40 mg by mouth once daily. 0 10/22/2018 Active Start: 12-10-2017 End: 04-29-2018 take 20 mg by mouth once daily Citalopram Discontinued 20 MG PO Daily December 10, 2017 12:00am April 29, 2018 3:12pm Comment on above: Take 40 mg by mouth once daily. clopidogrel 75 mg oral tablet (20 sources) [id number] Platelet Inhibitor Start: 05-07-20 End: 01-23-20 24 take 1 tablet by mouth once daily Clopidogrel (Plavix) 75 mg tablet Active 75 MG PO Daily January 23, 2024 2:32pm dexamethasone 1 mg oral tablet (4 sources) Corticosteroid Start: 12-03-19 Dexamethasone Active MG PO December 03, 2023 12:00am Start: 06-14-2023 dexAMETHasone (Decadron) 2 MG tablet Indications: Cervical radiculopathy , Cervical stenosis of spinal canal , Occipital neuralgia of left side 2mg 3 pills po X3 days,2 pills po daily X3 days , then 1 pill po daily X3 days then stop 9 days 18 pills 18 tablet 0 06/14/2023 Active ezetimibe 10 mg oral tablet (20 sources) Dietary Cholesterol Absorption Inhibitor Start: 11-05-2023 take 1 tablet by mouth once daily Ezetimibe Active 0 .ROUTE .COMPLEX November 05, 2023 10:42am take 1 tablet by mouth once daily Start: 09-05-2023 End: 09-05-2023 Ezetimibe Discontinued MG PO September 05, 2023 12:00am September 05, 2023 1:34pm Start: 08-02-2023 End: 08-02-2023 take 1 tablet by mouth every week Ezetimibe Discontinued MG PO August 02, 2023 1:00am August 02, 2023 1:47pm FreeTextSi tablet Orally 2 days per week; Note: Source Status: Not-Taking\PRN; Provider: Kamla Ruiz Start: 06-08-2023 End: 11-05-2023 take 10 mg by mouth once daily Ezetimibe Discontinued 10 MG PO Daily October 29, 2023 12:00am November 05, 2023 10:42am Start: 05-15-2023 take 1 tablet by myles [...] Nelida Driver Start: 05-26-2022 End: 08-02-2023 take 1-2 tablets by mouth at bedtime hydrOXYzine HCl (ATARAX) 25 mg tablet take 1 to 2 tablets by mouth at bedtime if needed 05/26/2022 Active Comment on above: take 1 to 2 [...] day PRN Active iv contrast (will be provide d with radiology test) (17 sources) Start: 11-02-2023 End: 11-03-2023 iv contrast (will be provide d with radiology test) Indications: 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 1 Each 0 11/02/2023 11/02/2023 Start: 09-20-2022 End: 09-21-2022 inject 1 dose [...] CT contrast administration guidelines link. 1 Each 03/15/2020 Active Start: 03-15-2020 iv contrast (w ill [...] guidelines link lisinopril 10 mg oral tablet (13 sources) Angiotensin Converting Enzyme Inhibitor Start: 4 End: 4 take 10 mg by mouth once daily Lisinopril Active 10 MG PO Daily 90 90 November 29, 2023 1:20pm Start: 09-05-2023 End: 10-18-2023 take 5 mg by mouth once daily Lisinopril Discontinued 5 MG PO Daily September 05, 2023 12:00am October 18, 2023 9:30am methocarbamol 500 mg oral tablet (4 sources) Muscle Relaxant Start: 12-03-2023 Methocarbamol Active 500 MG PO December 03, 2023 10:58am Start: 12-03-2023 End: 12-03-2023 Methocarbamol Discontinued M G PO December 03, 2023 12:00am December 03, 2023 10:59am mirtazapine 15 mg oral table t (20 sources) Start: 09-01-2022 End: 10-29-2023 mirtazapine (REMERON) 15 mg tablet Take by mouth daily at bedtime. 09/01/2022 Active Start: 09-01-2022 take 0.5 tablet by m outh at bedtime mirtazapine (Remeron) 15 MG tablet mirtazapine 15 mg tablet take 1/2 tablet by mouth at bedtime 0 09/01/2022 Active Start: 07-17-2022 End: 08-02-2023 take 7.5 mg by mouth at bedtime Mirtazapine Discontinu ed 7.5 MG PO Bedtime July 17, 2022 1:00am August 02, 2023 1:49pm Comment on above: Take by mouth daily at bedtime. montelukast 10 mg oral tablet (20 sources) Leukotriene Receptor Antagonist Start: End: take 1 tablet by mouth once daily at bedtime montelukast (SINGULAIR) 10 mg tablet Take 10 mg by mouth daily at bedtime. 09/04/2022 Active Comment on above: Take 10 mg by mouth daily at bedtime. Multiple Vitamin (MULTIVITAMIN ADULT PO) (2 sources) take 1 capsule by mouth in the morning Multiple Vitamin (MULTIVITAMIN ADULT PO) Take 1 capsule by mouth in the morning. 0 Active Multiple Vitamin - (20 sources) take 1 tablet by mouth once daily Multiple Vitamin - 1 tablet Orally Once a day Active Multivitamin (Multiple Vitamins) tablet (8 sources) Start: take 1 tablet by mouth once daily Multivitamin (Multiple Vitamins) tablet Active 1 TAB PO Daily August 02, 2023 1:00am Start: 08-02-2023 take 1 tablet by myles th once daily Multivitamin (Multiple Vitamins) tablet Active 1 TAB PO Daily August 02, 2023 12:00am Multivitamin capsule (12 sources) take 1 capsule by mo uth once daily Multivitamin capsule Take 1 capsule by mouth once daily. Active take 1 capsule by mouth once danitza ly Multivitamin capsule Take 1 capsule by mouth once daily. 0 Active Comment on above: Take 1 capsule by mo uth once daily. pravastatin sodium 40 mg oral tablet (9 sources) HMG-CoA Reductase Inhibitor Start: 11-05-2023 take 1 tablet by mouth once daily Pravastatin Active 0 .ROUTE .COMPLEX 90 November 05, 2023 10:42am take 1 tablet by mouth once daily Start: 07-06-2023 End: 11-05-2023 take 40 mg by mouth once daily Pravastatin Discontinue d 40 MG PO Daily October 29, 2023 12:00am November 05, 2023 10:42am Start: 05-15-2023 take 1 tablet by myles th every twenty-four hours Pravastatin Sodium 40 MG 1 tablet Orally Once a day for 90 days Apr, Active terbinafine hydrochloride 10 mg/ml topical cream (2 sources) Allylamine Antifungal Start: 12-03-2023 Terbinafine Hcl Active APPLIC TOPICAL December 03, 2023 12:00am vortioxetine 5 mg oral tablet (2 sources) Start: 09-12-2021 take 1 tablet by mouth every twenty-four hours vortioxetine (TRINTELLIX) 5 mg tablet Take by mouth every 24 hours. 0 09/12/2021 Active Start: 09-12-2021 take 1 tablet by myles every twenty-four hours Trintellix 5 MG 1 tablet Orally Once a day for 30 day(s) Samples Aug, Active Completed/Discontinued Medications Medication Drug Class(es) Dates Sig (Normalized) Sig (Original) acetaminophen 325 mg / butalbital 50 mg / caffeine 40 mg oral tablet (6 sources) Barbiturate, Central Nervous System Stimulant, Methylxanthine Start: 08-31-2022 End: 11-02-2023 take 1 tablet by mouth every four to six hours for headache acetaminophen 325 mg-caffeine 40 mg-butalbital 50 mg (FIORICET) per tablet take 1 tablet by mouth every 4 to 6 hours if needed for headache or migraines for 30 DAYS 08/31/2022 11/02/2023 Discontinued (Discontinued by Patient) Comment on above: take 1 tablet by myles th every 4 to 6 hours if needed for headache or migraines for 30 DAYS acetaminophen 300 mg / codeine phosphate 30 mg oral tablet (10 sources) Opioid Agonist Start: 05-07-2023 End: 08-02-2023 [...] AFTERNOON and 2 at bedtime as directed [id number] 200 actuat albuterol 0.09 mg/actuat metered dose inhaler (11 sources) beta2-Adrenergic Agonist Start: End: take 1 [...] needed Inhalation every 4 hrs Jun, Active amoxicillin 875 mg / clavulanate 125 mg oral tablet (15 sources) Penicillin-class Antibacterial Start: 02-26-2023 End: 05-07-2023 take 1 tablet by mouth twice daily Amoxicillin-Pot Clavulanate Discontinued 1 TAB PO Twice daily February 26, 2023 12:00am May 07, 2023 9:23am atorvastatin 10 mg oral tablet (20 sources) HMG-CoA Reductase Inhibitor Start: 09-28-2021 take 1 tablet by mouth [...] 1; Qty: 45 grams; Provider: Nelida Driver brexpiprazole 1 mg oral tablet (19 sources) Atypical Antipsychotic Start: 08-02-19 End: 10-18-19 [...] 1 tablet by myles th twice daily. cyclobenzaprine hydrochloride 10 mg oral tablet (14 sources) Muscle Relaxant Start: 03-21-2023 End: 05-07-2023 take 10 mg by mouth three times daily Cyclobenzaprine Discontinued 10 MG PO Three times daily March 21, 2023 12:00am May 07, 2023 9:22am doxycycline monohydrate 100 mg oral capsule (9 sources) Tetracycline-class Drug Start: 11-05-2018 take 1 capsule by mouth every twelve hours doxycycline monohydrate (MONODOX) 100 mg capsule TAKE 1 CAPSULE BY MOUTH EVERY 12 HOURS FOR 10 DAYS 0 11/05/2018 Active Comment on above: TAKE 1 CAPSULE BY MO [facility] EVERY 12 HOURS FOR 10 DAYS DULoxetine [...] Nelida Camara ( ) Start: 07-17-2022 End: 11-02-2023 indomethacin (INDOCIN) 25 mg capsule Indomethacin Active 25 MG PO Daily July 17, 2022 1:00am 07/17/2022 11/02/2023 Discontinued (Discontinued by Patient) Start: 07-17-2022 End: 11-02-2023 take 25 mg by mouth once daily Indomethacin Discontinu ed 25 MG PO Daily July 17, 2022 1:00am August 02, 2023 1:48pm take [address] [facility] once daily at mealtime indomethacin SR (Indocin SR) 75 MG ER capsule indomethacin ER 75 mg capsule,extended release take 1 capsule by mouth once daily with food 0 Active take 1 capsule by mo ut every twenty-four hours Indomethacin ER 75 [...] as directed Orally as directed Jun, Active naproxen 500 mg oral tablet (20 sources) Nonsteroidal Anti-inflammatory Drug Start: 12-10-2017 End: 04-29-2018 take 500 mg by mouth twice daily at mealtime Naproxen Discontinued 500 MG PO Twice daily December 10, 2017 12:00am April 29, 2018 3:12pm administer with food or milk olmesartan medoxomil 20 mg oral tablet (10 sources) Angiotensin 2 Receptor Clara Start: 05-07-2023 [...] Active rosuvastatin calcium 5 mg oral tablet (12 sources) HMG-CoA Reductase Inhibitor Start: 08-02-2023 End: [...] as needed Orally Twice a day Not-Taking tiZANidine 4 mg oral tablet (20 sources) Central alpha-2 Adrenergic Agonist Start: take 1 capsule by mouth twice daily tiZANidine (Zanaflex) 4 MG capsule Indications: Cervical stenosis of spinal canal tizanidine 4 mg capsule take 1 capsule by mouth twice a day if needed for MUSCLE SPASTICITY 60 capsule 11 01/30/2023 Active Start: 08-29-2022 End: 12-03-2023 take 1 tablet by mouth every twenty-four hours as needed tiZANidine (ZANAFLEX) 4 mg tablet Take 4 mg by mouth at bedtime as needed. 08/29/2022 Active Start: 04-17-2022 End: 07-17-2022 take 4 mg by mouth twice daily Tizanidine Discontinued 4 MG PO Twice daily April 17, 2022 12:00am July 17, 2022 9:02am Start: 04-06-2022 End: 08-02-2023 take 8 mg by mouth at bedtime Tizanidine Discontinued 8 MG PO Bedtime April 06, 2022 12:00am August 02, 2023 1:50pm Start: 04-06-2022 take 1 tablet by myles every twenty-four hours as needed tiZANidine (ZANAFLEX) 4 mg tablet Take 4 mg by mouth at bedtime as needed. 0 08/29/2022 Active Start: 11-01-2021 tiZANidine HCl - 4 MG Oral Tablet Quantity: 30 Refills: 0 Ordered: 01-Nov-2021 DO Start : 01-Nov-2021 Active take 1 capsule by mo [facility] once daily at bedtime tiZANidine (Zanaflex) 4 mg capsule Take 1 capsule (4 mg) by mouth once daily at bedtime. Active Comment on above: Take 4 mg by mouth a t bedtime as needed. topiramate 100 mg oral tablet (1 source) take 1 tablet by mouth every twenty-four hours Topamax 100 MG 1 tablet Orally Once a day Not-Taking Toradol 30 mg/ml (20 sources) Start: 07-02-2023 Toradol 30 mg/ml Jun, 60 mg Start: [...] once daily. zonisamide 25 mg oral capsule (9 sources) Anti-epileptic Agent Start: 3 End: 4 zonisamide (ZONEGRAN) 25 mg capsule take 1 capsule by mouth at bedtime for 1 week then INCREASE to 1 ... (REFER TO PRESCRIPTION NOTES). 10/18/2022 11/02/2023 Discontinued (Discontinued by Patient) NEGATED: Highlighted row has not occurred!citalopram (CeleXA) [...] a day NEGATED: Highlighted row has not occurred!indomethaci n 25 mg oral capsule (1 source) Nonsteroidal [...] and other heart disease; Translations: [Atherosclerosis of [place] arteries of extremities with intermittent claudication, right leg] Onset: 05-07-2023 Disorders of lipid metabolism (20 sources) Hyperlipidemia; Translations: [Hyperlipidemia, unspecified] Onset: 09-19-2021 Resolved: 09-19-2021 Chronic Essential hypertension (20 sources) Essential hypertension; Translations: [Essential (primary) hypertension] Chronic Glaucoma (2 sources) Preglaucoma, unspecified, right eye; Translations: [Preglaucoma, unspecified] Onset: 12-29-2022 12-29-2022 Chronic Headache; including migraine (20 sources) Migraine; Translations: [Migraine, unspecified, not intractable, without status migrainosus] Onset: 12-10-2022 Chronic Headache; including migraine (20 sources) Headache; Translations: [Headache] Episodic Lymphadenitis (1 source) Enlarged lymph nodes, unspecified Episodic Malignant neoplasm without specification of site (3 sources) Primary malignant neoplasm; Translations: [Malignant (primary) neoplasm, unspecified] Onset: 2008 12-10-2022 Chronic Mood disorders (3 sources) Depressive disorder; Translations: [Depressive disorder, not elsewhere classified] Chronic Osteoarthritis (20 sources) Arthritis; Translations: [Unspecified osteoarthritis, unspecified site] 08-02-2023 Chronic Osteoporosis (6 sources) Age-related osteoporosis without current pathological fracture; Translations: [Age-related osteoporosis without current pathological fracture] Onset: 01-03-2024 Chronic Other and unspecified benign neoplasm (2 [...] [Spasmodic torticollis] Onset: 07-03-2023 07-03-2023 Chronic Other infections; including parasitic (2 sources) Personal history of other infectious and parasitic diseases; Translations: [History of COVID-19] 01-31-2024 Episodic Other lower respiratory disease (16 sources) Multiple nodules of lung; Translations: [Other nonspecific abnormal finding of lung field] Onset: 10-13-2021 Episodic Other lower respiratory disease (20 sources) Solitary nodule of lung; Translations: [Solitary pulmonary nodule] Episodic Other lower respiratory disease (4 sources) Productive cough ; Translations: [Productive cough] [...] unspecified] 10-05-2023 Chronic Other nervous system disorders (4 sources) Other specified disorders of brain; Translations: [Other [...] Resolved: 01-30-2022 Episodic Other nervous system disorders (20 sources) Burning sensation; Translations: [Other disturbances of skin sensation] 08-02-2023 Episodic Other nervous system disorders (1 source) Other disturbances of skin sensation Episodic Other nervous system disorders (20 sources) Impairment of balance; Translations: [Other abnormalities of gait and mobility] Onset: 12-10-2022 12-10-2022 Episodic Other nervous system disorders (8 sources) Other abnormalities of gait and mobility; Translations: [Other symptoms involving nervous and musculoskeletal systems] Onset: 12-12-2023 Episodic Other non-epithelial cancer of skin (2 sources) Squamous cell carcinoma of skin; Translations: [Squamous cell carcinoma of skin, unspecified] 01-31-2024 Episodic Other non-traumatic joint disorders (20 sources) [...] Resolved: 06-30-2021 Chronic Other upper respiratory infections (6 sources) Acute pharyngitis, unspecified; Translations: [Acute sinusitis] Onset: 10-09-2023 Episodic Otitis media and related conditions (15 sources) Acute transudative otitis media; Translations: [Other [...] migraine (3 sources) Headache; including migraine Onset: 05-17-2022 Resolved: 01-30-2022 Malaise and fatigue (2 sources) [...] neuritis, unspecified] Onset: 04-04-2023 04-04-2023 Episodic Other nervous system disorders (20 sources) [...] Test Name Value Interpretation Reference Range Facility DEXA BONE DENSITYon 02-13-20 24 DEXA BONE DENSITY These images are not reportable by radiology and will not be interpreted by Radiologists. [facility] XR CERVICAL SPINE COMPLETE 6 + VIEWSon 02-13-2024 XR CERVICAL SPINE COMPLETE 6+ VIEWS Interpreted By: Romulo Medrano, STUDY: XR CERVICAL SPINE COMPLETE 6+ VIEWS; ; 02/13/2024 11:10 am INDICATION: Signs/Symptoms:r/o instability, assess alignment. ,M54.12 Radiculopathy, cervical region COMPARISON: None. ACCESSION NUMBER(S): [id number] ORDERING CLINICIAN: CAMILLE BARAHONA FINDINGS: C-spine, 6 views There is moderate to severe multilevel disc space narrowing osteophytosis throughout the cervical spine worse at C6-C7. There is moderate facet disease as well. There is no fracture. There is no spondylolisthesis or change on flexion-extension views. There is mild neuroforaminal narrowing bilaterally. Carotid bulb calcifications present bilaterally IMPRESSION: Moderate to severe multilevel spondylosis worse at C6-7. Moderate facet disease. Mild bilateral neural foraminal narrowing noted MACRO: None Signed by: Romulo Medrano 02/19/2024 6:35 PM Dictation workstation: [id number] [facility] Comment on above: Order Comment: Pleas e obtain with flexion and extension XR CHEST 2 VIEWSon XR CHEST 2 VIEWS Interpreted By: Romulo Hubbard, STUDY: XR CHEST 2 VIEWS; 02/13/2024 11:10 am INDICATION: Signs/Symptoms:Preop surgery 02/[address] Steven MD. ,M54.12 Radiculopathy, cervical region,M81.0 Age-related osteoporosis without current pathological fracture COMPARISON: None. ACCESSION NUMBER(S): [id number] ORDERING CLINICIAN: CAMILLE BARAHONA FINDINGS: CARDIOMEDIASTINAL SILHOUETTE: Cardiomediastinal silhouette is normal in size and configuration. LUNGS: Lungs are clear. ABDOMEN: No remarkable upper abdominal findings. BONES: No acute osseous changes. IMPRESSION: 1. No evidence of acute cardiopulmonary process. MACRO: None Signed by: Romulo Medrano 02/19/2024 6:53 PM Dictation workstation: [id number] [facility] Basic metabolic 2000 panelon 02-11-2024 Anion gap [Moles/Vol] 13 mmol/L Normal 10-20 [facility] Comment on above: Performed By: #### 2 4321-2 #### TITUS Mercado ([id number]) [facility]) [address] [place] [address] Calcium [Mass/Vol] 9.6 mg/dL Normal 8.6-10.6 [facility] Comment on above: Performed By: #### 2 4321-2 #### TITUS SOLORZANO L ([id number]) [facility] [address] [place] [address] Chloride [Moles/Vol] 104 mmol/L Normal 98-107 [facility] Comment on above: Performed By: #### 2 4321-2 #### TITUS SOLORZANO L ([id number]) [facility] [address] [place] [address] CO2 [Moles/Vol] 26 mmol/L Normal 21-32 [facility] Comment on above: Performed By: #### 2 4321-2 #### TITUS SOLORZANO L ([id number]) [facility] [address] [place] [address] Creatinine [Mass/Vol] 0.89 mg/dL Normal 0.50-1.30 [facility] Comment on above: Performed By: #### 2 4321-2 #### TITUS SOLORZANO L ([id number]) [facility]) [address] [place] [address] GFR/1.73 sq M.predicted MDRD (S/P/Bld) [Vol rate/Area] mL/min/{1.73_m2} Normal >60 [facility] Comment on above: Result Comment: Calc ulations of estimated GFR are performed using the 2020 CKD-EPI Study Refit equation without the race variable for the IDMS-Traceable creatinine methods. https://jasn.asnjournals.org/content///ASN.98815 09731 Performed By: #### 2 4321-2 #### TITUS Mercado ([id number]) [facility]) [address] [place] [address] Glucose [Mass/Vol] 77 mg/dL Normal 74-99 [facility] Comment on above: Performed By: #### 2 4321-2 #### TITUS Mercado ([id number]) [facility]) [address] [place] [address] Potassium [Moles/Vol] 4.6 mmol/L Normal 3.5-5.3 [facility] Comment on above: Performed By: #### 2 4321-2 #### TIUTS Mercado ([id number]) [facility]) [address] [place] [address] Sodium [Moles/Vol] 138 mmol/L Normal 136-145 [facility] Comment on above: Performed By: #### 2 4321-2 #### TITUS Mercado ([id number]) [facility]) [address] [place] [address] Urea nitrogen [Mass/Vol] 9 mg/dL Normal 6-23 [facility] Comment on above: Performed By: #### 2 4321-2 #### TITUS Mercado ([id number]) [facility]) [address] [place] [address] Blood type and Indirect anti body screen panel (Bld)on 02-11-2024 ABO group Nom (Bld) A Normal [facility] Comment on above: Performed By: #### 3 4532-2 #### TITUS Mercado ([id number]) [facility] ([facility]) [address] [place] [address] Blood group antibody screen Ql Negative Normal [facility] Comment on above: Performed By: #### 3 4532-2 #### TITUS Mercado ([id number]) [facility] ([facility]) [address] [place] [address] D Ag Ql (Bld) Positive Normal [facility] Comment on above: Performed By: #### 3 4532-2 #### TITUS Mercado ([id number]) [facility] ([facility]) [id number] [place] [address]392 CBC W Auto Differential pane l (Bld)on 02-11-2024 Basophils (Bld) [#/Vol] 0.04 x10*3/uL Normal 0.00-0.10 [facility] Comment on above: Performed By: #### 5 7021-8 #### TITUS Mercado ([id number]) [facility]) [address] [place] [address]18 Basophils/100 WBC (Bld) 0.8 % Normal 0.0-2.0 [facility] Comment on above: Performed By: #### 5 7021-8 #### TITUS Mercado ([id number]) [facility]) [address] [place] [address] 88663 Eosinophils (Bld) [#/Vol] 0.05 x10*3/uL Normal 0.00-0.70 [facility] Comment on above: Performed By: #### 5 7021-8 #### TITUS Mercado ([id number]) [facility]) [address] [place] [address] 34552 Eosinophils/100 WBC (Bld) 1.0 % Normal 0.0-6.0 [facility] Comment on above: Performed By: #### 5 7021-8 #### TITUS Mercado ([id number]) [facility]) [address] [place] [address] 29985 Erythrocyte distribution width (RBC) [Ratio] 13.2 % Normal 11.5-14.5 [facility] Comment on above: Performed By: #### 5 7021-8 #### TITUS Mercado ([id number]) [facility]) [address] [place] [address] 40432 Hematocrit (Bld) [Volume fraction] 39.6 % Low 41.0-52.0 [facility] Comment on above: Performed By: #### 5 7021-8 #### TITUS Mercado ([id number]) [facility]) [address] [place] [address] 31822 Hemoglobin (Bld) [Mass/Vol] 13.2 g/dL Low 13.5-17.5 [facility] Comment on above: Performed By: #### 5 7021-8 #### TITUS Mercado ([id number]) [facility]) [address] [place] [address] 26060 Immature granulocytes (Bld) [#/Vol] 0.00 x10*3/uL Normal 0.00-0.70 [facility] Comment on above: Performed By: #### 5 7021-8 #### TITUS Mercado ([id number]) [facility]) [address] [place] [address]4112 Immature granulocytes/100 WBC (Bld) 0.0 % Normal 0.0-0.9 [facility] Comment on above: Result Comment: Dayan ture Granulocyte Count (IG) includes promyelocytes, myelocytes and metamyelocytes but does not include bands. Percent differential counts (%) should be interpreted in the context of the absolute cell counts (cells/UL). Performed By: #### 5 7021-8 #### TITUS Mercado ([id number]) [facility]) [address] [place] [address]3928 Lymphocytes (Bld) [#/Vol] 1.74 x10*3/uL Normal 1.20-4.80 [facility] Comment on above: Performed By: #### 5 7021-8 #### TITUS Mercado ([id number]) [facility]) [address] [place] [address] 88624 Lymphocytes/100 WBC (Bld) 33.1 % Normal 13.0-44.0 [facility] Comment on above: Performed By: #### 5 7021-8 #### TITUS Mercado ([id number]) [facility]) [address] [place] [address] MCH (RBC) [Entitic mass] 31.5 pg Normal 26.0-34.0 [facility] Comment on above: Performed By: #### 5 7021-8 #### TITUS Mercado ([id number]) [facility]) [address] [place] [address] MCHC (RBC) [Mass/Vol] 33.3 g/dL Normal 32.0-36.0 [facility] Comment on above: Performed By: #### 5 7021-8 #### TITUS Mercado ([id number]) [facility]) [address] [place] [address] 97213 MCV (RBC) [Entitic vol] 95 fL Normal 80-100 [facility] Comment on above: Performed By: #### 5 7021-8 #### TITUS Mercado ([id number]) [facility]) [address] [place] [address] 84451 Monocytes (Bld) [#/Vol] 0.30 x10*3/uL Normal 0.10-1.00 [facility] Comment on above: Performed By: #### 5 7021-8 #### TITUS Mercado ([id number]) [facility]) [address] [place] [address] 35744 Monocytes/100 WBC (Bld) 5.7 % Normal 2.0-10.0 [facility] Comment on above: Performed By: #### 5 7021-8 #### TITUS Mercado ([id number]) [facility]) [address] [place] [address] 19074 Neutrophils (Bld) [#/Vol] 3.13 x10*3/uL Normal 1.20-7.70 [facility] Comment on above: Result Comment: Perc ent differential counts (%) should be interpreted in the context of the absolute cell counts (cells/uL). Performed By: #### 5 7021-8 #### TITUS Mercado ([id number]) [facility]) [address] [place] [address] 42026 Neutrophils/100 WBC (Bld) 59.4 % Normal 40.0-80.0 [facility] Comment on above: Performed By: #### 5 7021-8 #### TITUS SOLORZANO L ([id number]) [facility]) [address] [place] [address] 32360 Nucleated RBC/100 WBC (Bld) [Ratio] 0.0 /100 WBCs Normal 0.0-0.0 [facility] Comment on above: Performed By: #### 5 7021-8 #### TITUS Mercado ([id number]) [facility]) [address] [place] [address] 49820 Platelets (Bld) [#/Vol] 271 x10*3/uL Normal 150-450 [facility] Comment on above: Performed By: #### 5 7021-8 #### TITUS Mercado ([id number]) [facility]) [address] [place] [address] 07155 RBC (Bld) [#/Vol] 4.19 x10*6/uL Low 4.50-5.90 [facility] Comment on above: Performed By: #### 5 7021-8 #### TITUS Mercado ([id number]) [facility]) [address] [place] [address] 61996 WBC (Bld) [#/Vol] 5.3 x10*3/uL Normal 4.4-11.3 [facility] Comment on above: Performed By: #### 5 7021-8 #### TITUS SOLORZANO L ([id number]) [facility]) [address] [place] [address] 78897 ECG 12-LEADon 02-11-2024 ECG 12-LEAD Ventricular Rate 63 Atrial Rate 63 P-R Interval 268 QRS Duration 74 Q-T Interval 406 QTC Calculation(Bazett) 415 P Norcross 58 R Norcross -3 T Norcross 18 QRS Count 10 Q Onset 224 P Onset 90 P Offset 149 T Offset 427 QTC Fredericia 412 Diagnosis Sinus rhythm with 1st degree AV block Otherwise normal ECG When compared with ECG of 30-JAN-2019 19:26, heart rate decreased Confirmed by Tobi Rico ([id number]) on 02/12/2024 12:20:00 PM Normal [facility] NICOTINE AND METABOLITES,Son 02-11-2024 Cotinine [Mass/Vol] 152 ng/mL Normal [facility] Comment on above: Performed By: #### N I+ME #### [facility] ([place]) ([id number]) [address] [place] [address] Nicotine [Mass/Vol] 6 ng/mL Normal [facility] Comment on above: Result Comment: INTE RPRETIVE INFORMATION: Nicotine and Metabolites, Serum or Plasma, Quantitative Methodology: Quantitative Liquid Chromatography-Tandem Mass Spectrometry Positive cutoff: 5 ng/mL For medical purposes only; not valid for forensic use. This test is designed to evaluate recent use of nicotine-containing products. Passive and active exposure cannot be discriminated definitively, although a cutoff of 10 ng/mL cotinine is frequently used for surgery qualification purposes. For smoking cessation programs or compliance testing, the absence of expected drug(s) and/or drug metabolite(s) may indicate non-compliance, inappropriate timing of specimen collection relative to drug administration, poor drug absorption, or limitations of testing. This test cannot distinguish between use of tobacco and purified nicotine products. The concentration value must be greater than or equal to the cutoff to be reported as positive. This test was developed and its performance characteristics determined by [employer]. It has not been cleared or approved by the [place] Food and Drug Administration. This test was performed in a CLIA certified laboratory and is intended for clinical purposes. Performed By: [facility] [address] [place] [address] Clinical Staff Educator: Chang Bullock MD, PhD CLIA Number: [id number] Performed By: #### N I+ME #### [facility] ([place]) ([id number]) [address] [place] [address] PT and aPTT panel Coag (PPP) on 02-11-2024 aPTT Coag (PPP) [Time] 33 s Normal 27-38 Un [facility] Comment on above: Order Comment: The A PTT is no longer used for monitoring Unfractionated Heparin Therapy. For monitoring Heparin Therapy, use the Heparin Assay. Performed By: #### 3 4529-8 #### TITUS Mercado ([id number]) [facility]) [address] [place] [address] INR Coag (PPP) [Relative time] 1.0 Normal 0.9-1.1 [facility] Comment on above: Order Comment: The A PTT is no longer used for monitoring Unfractionated Heparin Therapy. For monitoring Heparin Therapy, use the Heparin Assay. Performed By: #### 3 4529-8 #### TITUS Mercaod ([id number]) [facility]) [address] [place] [address] PT Coag (PPP) [Time] 11.5 s Normal 9.8-12.8 [facility] Comment on above: Order Comment: The A PTT is no longer used for monitoring Unfractionated Heparin Therapy. For monitoring Heparin Therapy, use the Heparin Assay. Performed By: #### 3 4529-8 #### TITUS Mercado ([id number]) [facility]) [address] [place] [address] Staphylococcus aureus.methic illin resistant isolateon 02-11-2024 MRSA isol Org specific cx Ql (Nose) Test: Staphylococcus aureus/MRSA colonization, Culture Specimen Source: Anterior Nares Specimen Type: Swab Specimen Date: 02/11/2024 1505 Result Date: 02/13/2024825 Result Status: Final result Abnormal: No Resulting Lab: [facility] [address] [place], [place] [address] CULTURE No Staphylococcus aureus isolated Normal [facility] Comment on above: Performed By: #### 5 2969-3 #### TITUS Mercado ([id number]) [facility]) [address] [place], [place] [id number] Urinalysis complete W Reflex Culture panel (U)on 02-11-2024 Appearance (U) Clear Normal Clear [facility] Comment on above: Performed By: #### 5 8077-9 #### TITUS Mercado ([id number]) [facility]) [address] [place] [address] 75325 Bilirubin (U) [Mass/Vol] Negative Normal NEGATIVE [facility] Comment on above: Performed By: #### 5 8077-9 #### TITUS SOLORZANO L ([id number]) [facility]) [address] [place] [address] 33877 Color (U) Colorless Normal Light-Hamilton ow, Yellow, Dark-Yello w [facility] Comment on above: Performed By: #### 5 8077-9 #### TITUS SOLORZANO L ([id number]) [facility]) [address] [place] [address] 59160 Glucose Auto test strip (U) [Mass/Vol] Normal Normal Normal [facility] Comment on above: Performed By: #### 5 8077-9 #### TITUS SOLORZANO L ([id number]) [facility]) [address] [place] [address] 26026 Ketones (U) [Mass/Vol] Negative Normal NEGATIVE Un [facility] Comment on above: Performed By: #### 5 8077-9 #### TITUS SOLORZANO L ([id number]) [facility]) [address] [place] [address] 41209 Leukocyte esterase Auto test strip Ql (U) Negative Normal NEGATIVE [facility] Comment on above: Performed By: #### 5 8077-9 #### TITUS SOLORZANO L ([id number]) [facility]) [address] [place] [address] 77726 Nitrite Auto test strip Ql (U) Negative Normal NEGATIVE [facility] Comment on above: Performed By: #### 5 8077-9 #### TITUS SOLORZANO L ([id number]) [facility]) [address] [place] [address] 90259 pH (U) 5.5 [pH] Normal 5.0, 5.5, 6.0, 6.5, 7.0, 7.5, 8.0 [facility] Comment on above: Performed By: #### 5 8077-9 #### TITUS Mercado ([id number]) [facility]) [address] [place] [address] 28238 Protein (U) [Mass/Vol] Negative Normal NEGAT CELESTE, 10 (TRACE), 20 (TRACE) [facility] Comment on above: Performed By: #### 5 8077-9 #### TITUS Mercado ([id number]) [facility]) [address] [place] [address] 80765 RBC (U) [#/Vol] Negative Normal NEGATIVE [facility] Comment on above: Performed By: #### 5 8077-9 #### TITUS Mercado ([id number]) [facility]) [address] [place] [address] 84553 Specific gravity (U) [Rel density] 1.007 Normal 1.005-1.[address] [place] [address] Comment on above: Performed By: #### 5 8077-9 #### TITUS SOLORZANO L ([id number]) [facility]) [address] [place] [address] 09575 Urobilinogen (U) [Mass/Vol] Normal Normal Normal [facility] Comment on above: Performed By: #### 5 8077-9 #### TITUS Mercado ([id number]) [facility] [address] [place] [address] 89647 MR BRAIN TUMOR PERFUSION PRO TOCOL W AND WO IV CONTRASTon 12-13-2023 MR BRAIN TUMOR PERFUSION PROTOCOL W AND WO IV CONTRAST Interpreted By: Nate Benavidez, STUDY: MR BRAIN TUMOR PERFUSION PROTOCOL W AND WO IV CONTRAST; 12/13/2023 8:49 am INDICATION: Signs/Symptoms:pontine lesion, imaging surveillance. COMPARISON: None. ACCESSION NUMBER(S): [id number] ORDERING CLINICIAN: SHIMON ORONA TECHNIQUE: Axial diffusion, axial T2, axial FLAIR, axial gradient echo T2, axial T1, post gadolinium volumetric T1, as well as post gadolinium axial T1 weighted MRI images of the brain were obtained. DCE permeability and DSC MRI perfusion imaging was also performed. The patient received 24 mL of Dotarem gadolinium intravenously. FINDINGS: There is again evidence of nonspecific nonenhancing ill-defined abnormal bright signal on the FLAIR and T2 weighted images infiltrating the brainstem most pronounced within the naldo right slightly greater than left unchanged in appearance when compared with the prior study dated 07/18/2023. There is no significant associated mass effect or volume loss. On the obtained advanced MRI imaging, an ROIs was placed over the area of nonspecific nonenhancing bright signal on the FLAIR and T2 images within the right aspect of the naldo and compared with contralateral more normal appearing brain parenchymal within the left lateral aspect of the naldo which demonstrates no abnormal elevated corrected rCBV ratio. There is a nonspecific DCE permeability curve. The diffusion weighted images fail to demonstrate abnormal diffusion restriction to suggest acute infarction. There is a moderate brain parenchymal volume loss. Small scattered nonspecific white matter changes are again noted within the cerebral hemispheres bilaterally which while nonspecific, given the patient's age, may represent sequelae of more remote small-vessel ischemic change. There is a stable sharply marginated 5 mm ovoid focus following CSF in signal noted within the left subinsular region as seen on axial slice 21 of 41 which while nonspecific raises the possibility of an incidental prominent perivascular space. 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 Otherwise, no abnormal intracranial enhancement is identified on the postcontrast images. There is a small retention cyst or polyp noted within the right maxillary sinus. Minimal mucosal thickening is noted within scattered ethmoid air cells. The mastoid air cells are clear. IMPRESSION: There is again evidence of nonspecific nonenhancing ill-defined abnormal bright signal on the FLAIR and T2 weighted images infiltrating the brainstem most pronounced within the naldo right slightly greater than left unchanged in appearance when compared with the prior study dated 07/18/2023. There is no significant associated mass effect or volume loss. On the obtained advanced MRI imaging, an ROIs was placed over the area of nonspecific nonenhancing bright signal on the FLAIR and T2 images within the right aspect of the naldo and compared with contralateral more normal appearing brain parenchymal within the left lateral aspect of the naldo which demonstrates no abnormal elevated corrected rCBV ratio. The diffusion weighted images fail to demonstrate abnormal diffusion restriction to suggest acute infarction. There is a moderate brain parenchymal volume loss. Small scattered nonspecific white matter changes are again noted within the cerebral hemispheres bilaterally which while nonspecific, given the patient's age, may represent sequelae of more remote small-vessel ischemic change. There is a stable sharply marginated 5 mm ovoid focus following CSF in signal noted within the left subinsular region as seen on axial slice 21 of 41 which while nonspecific raises the possibility of an incidental prominent perivascular space. 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 MACRO: None. Signed by: Nate Benavidez 12/13/2023 9:38 AM Dictation workstation: [id number] [facility] Comment on above: Order Comment: JESSICA huerta cc'd to shant Adrianna 11-02-2023 CNOVSP Visit (SP) Office ([place]) ----- JOVANI MELENDEZ ([id number]) 1960 M Date Time Provider Department 11/02/23 9:45 AM MEMO COLE During your visit today, we recorded the following information about you: Temperature Pulse Respiration Blood pressure 97.7 degrees 72/minute 16/minute 130/76 Weight Height 79.7 kg 1.706 m Memo Cole MD 11/03/2023 12:15 PM Signed NAME: Jovani Melendez CLINIC NO.: [id number] DATE OF SERVICE: November 02, 2023 (Curtis) Some elements in this clinic note that are critical to medical decision making have been carefully reviewed and included from a prior clinic note dated: November 03, 2022 (Curtis). Referring Provider: Girselda Hastings, DO Additional Clinicians involved in Jovani Melendez's care: Dr Kimberly Nichole ENT, Dr. Ibarra [place] surgery [facility] DIAGNOSIS: Head and neck cancer ASSESSMENT: 62 year old man who underwent selective right [...] 1.8 mm of invasive disease (Stage I, mD2L9K4, HPV+ oropharyngeal SCC).resected T1 N1 base of [...] in 1 year RTC 1 week after ____- HPI: CASE HISTORY: Reverse Chronological Order 10/26/2023 - CT Neck/Chest: Neck: Expected post-treatment changes in the neck without evidence of recurrent disease in the primary site. No evidence of abnormal lymph nodes. Chest: New streaky scarring/discoid atelectasis in the bilateral lower lung mcgrath. Subcentimeter nodular opacities measuring less than 5 mm, stable since 04/08/20. No evidence of intrathoracic metastases. 07/18/2023 - MRI Brain and Neck. 1. Abnormal increased T2 signal in the naldo, right greater than left, worrisome for low-grade malignancy such as a glioma. Infectious or inflammatory process cannot be excluded, although this seems unlikely given the absence of enhancement. 2. No acute intracranial hemorrhage, infarction, mass effect or midline shift elsewhere in the brain 1. No acute abnormality. No focal disc herniation, spinal stenosis or impingement upon the cervical cord. 2. Multilevel degenerative changes with mild disc bulging and posterior osteophytic ridging, as described above. Prominent loss of disc height from disc degenerative disease at C5-C6, C6-C7 and T1-T2. 3. Neural foraminal stenosis at multiple levels, severe on the left at C6-C7. 10/06/2021 - CT Neck/Chest w/Cont: Neck: MODERATE DEGENERATIVE CHANGES INVOLVING THE CERVICAL SPINE. MODERATE ATHEROSCLEROSIS INVOLVING THE CAROTID BIFURCATIONS AND CAROTID SIPHONS. OTHERWISE, UNREMARKABLE CT NECK WITH CONTRAST. NO SIGNIFICANTLY ENLARGED LYMPH NODES. Chest: Left-sided subcentimeter pulmonary nodules, stable. Nonspecific, sclerotic foci involving bilateral ribs, unchanged. No substantial intrathoracic adenopathy is identified. 10/05/2021 - [place] Brain: [facility] There is T2 and T2 flair hyperintense [...] into the left side of the naldo. There appears to be a 2 mm focus of nodular enhancement at the apex of the right internal auditory canal. 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 Details within body of report: Mild diffuse age-related cortical atrophy. In the cerebral parenchyma: There are a few scattered punctate periventricular and subcortical white matter T2 and FLAIR hyperintense foci suggesting mild chronic microvascular ischemic change. Brainstem: There is T2 and T2 flair hyperintense signal predominantly to the right of midline in the naldo but also involving the (more content not included)... Normal [facility] Basophils Auto (Bld) [#/Vol] on 10-26-2023 Basophils (Bld) [#/Vol] 0.04 10*3/uL <0.11 [facility] Basophils/100 WBC Auto (Bld) on 10-26-2023 Basophils/100 WBC (Bld) 0.5 % [facility] Blood manual differential co mment interpretation narrativeon 10-26-2023 Manual differential comment Curtis (Bld) [Interp] Auto [facility] CBC W Auto Differential pane l (Bld)on 05-10-2024 Basophils (Bld) [#/Vol] 0.04 10*3/uL Normal <0.11 [facility] Comment on above: Order Comment: Speci men Type: BLOOD SPECIMEN [facility] Address: [address] [place] [address] Performed By: #### 5 7021-8 #### [facility] CLIA [id number] [address] [place] [address]37 Basophils/100 WBC (Bld) 0.5 % Normal [facility] Comment on above: Order Comment: Speci men Type: BLOOD SPECIMEN [facility] Address: [address] [place] [address] Performed By: #### 5 7021-8 #### [facility] CLIA [id number] [address] [place] [address] 97887 Differential cell count method Nom (Bld) Auto Normal [facility] Comment on above: Order Comment: Speci men Type: BLOOD SPECIMEN [facility] Address: [address] [place] [address] Performed By: #### 5 7021-8 #### [facility] CLIA [id number] [address] [place] [address] 64846 Eosinophils (Bld) [#/Vol] 0.13 10*3/uL Normal <0.46 [facility] Comment on above: Order Comment: Speci men Type: BLOOD SPECIMEN [facility] Address: [address] [place] [address] Performed By: #### 5 7021-8 #### [facility] CLIA [id number] [address] [place] [address] 83887 Eosinophils/100 WBC (Bld) 1.5 % Normal [facility] Comment on above: Order Comment: Speci men Type: BLOOD SPECIMEN [facility] Address: [address] [place] [address] Performed By: #### 5 7021-8 #### [facility] CLIA [id number] [address] [place] [address] Erythrocyte distribution width (RBC) [Ratio] 13.8 % Normal 11.5-15.0 [facility] Comment on above: Order Comment: Speci men Type: BLOOD SPECIMEN [facility] Address: [address] [place], [place] [address] Performed By: #### 5 7021-8 #### [facility] CLIA [id number] [address] [place] [address]206 Hematocrit (Bld) [Volume fraction] 42.6 % Normal 39.0-51.0 [facility] Comment on above: Order Comment: Speci men Type: BLOOD SPECIMEN [facility] Address: [address] [place] [address] Performed By: #### 5 7021-8 #### [facility] CLIA [id number] [address] [place] [address]349 Hemoglobin (Bld) [Mass/Vol] 14.4 g/dL Normal 13.0-17.0 [facility] Comment on above: Order Comment: Speci men Type: BLOOD SPECIMEN [facility] Address: [address] [place] [address] Performed By: #### 5 7021-8 #### [facility] CLIA [id number] [address] [place] [address] 21488 Immature granulocytes (Bld) [#/Vol] 0.03 10*3/uL Normal <0.10 [facility] Comment on above: Order Comment: Speci men Type: BLOOD SPECIMEN [facility]ing Facility: [facility] Address: [address] [place] [address] Performed By: #### 5 7021-8 #### [facility] CLIA [id number] [address] [place] [address] 27404 Immature granulocytes/100 WBC (Bld) 0.3 % Normal [facility] Comment on above: Order Comment: Speci men Type: BLOOD SPECIMEN [facility] Address: [address] [place] [address] Performed By: #### 5 7021-8 #### [facility] CLIA [id number] [address] [place] [address] 76152 Lymphocytes (Bld) [#/Vol] 2.18 10*3/uL Normal 1.00-4.00 [facility] Comment on above: Order Comment: Speci men Type: BLOOD SPECIMEN [facility] Address: [address] [place] [address] Performed By: #### 5 7021-8 #### [facility] CLIA [id number] [address] [place] [address] 59206 Lymphocytes/100 WBC (Bld) 24.8 % Normal [facility] Comment on above: Order Comment: Speci men Type: BLOOD SPECIMEN [facility] Address: [address] [place] [address] Performed By: #### 5 7021-8 #### [facility] CLIA [id number] [address] [place] [address] 17093 MCH (RBC) [Entitic mass] 32.0 pg Normal 26.0-34.0 [facility] Comment on above: Order Comment: Speci men Type: BLOOD SPECIMEN [facility] Address: [address] [place] [address] Performed By: #### 5 7021-8 #### [facility] CLIA [id number] [address] [place] [address] 44570 MCHC (RBC) [Mass/Vol] 33.8 g/dL Normal 30.5-36.0 [facility] Comment on above: Order Comment: Speci men Type: BLOOD SPECIMEN [facility] Address: [address] [place] [address] Performed By: #### 5 7021-8 #### [facility] CLIA [id number] [address] [place] [address] 37939 MCV (RBC) [Entitic vol] 94.7 fL Normal 80.0-100.0 [facility] Comment on above: Order Comment: Speci men Type: BLOOD SPECIMEN [facility] Address: [address] [place] [address] Performed By: #### 5 7021-8 #### [facility] CLIA [id number] [address] [place] [address] 02387 Monocytes (Bld) [#/Vol] 0.60 10*3/uL Normal <0.87 [facility] Comment on above: Order Comment: Speci men Type: BLOOD SPECIMEN [facility] Address: [address] [place] [address] Performed By: #### 5 7021-8 #### [facility] CLIA [id number] [address] [place] [address] 25190 Monocytes/100 WBC (Bld) 6.8 % Normal [facility] Comment on above: Order Comment: Speci men Type: BLOOD SPECIMEN [facility] Address: [address] [place] [address] Performed By: #### 5 7021-8 #### [facility] CLIA [id number] [address] [place] [address] 07561 Neutrophils (Bld) [#/Vol] 5.80 10*3/uL Normal 1.45-7.50 [facility] Comment on above: Order Comment: Speci men Type: BLOOD SPECIMEN [facility] Address: [address] [place] [address] Performed By: #### 5 7021-8 #### [facility] CLIA [id number] [address] [place] [address] 01967 Neutrophils/100 WBC (Bld) 66.1 % Normal [facility] Comment on above: Order Comment: Speci men Type: BLOOD SPECIMEN [facility] Address: [address] [place] [address] Performed By: #### 5 7021-8 #### [facility] CLIA [id number] [address] [place] [address] 47560 Nucleated RBC (Bld) [#/Vol] 10*3/uL Normal <0.01 [facility] Comment on above: Order Comment: Speci men Type: BLOOD SPECIMEN [facility] Address: [address] [place] [address] Performed By: #### 5 7021-8 #### [facility] CLIA [id number] [address] [place] [address] 06585 Nucleated RBC/100 WBC (Bld) [Ratio] 0.0 /100 WBC Normal [facility] Comment on above: Order Comment: Speci men Type: BLOOD SPECIMEN [facility] Address: [address] [place] [address] Performed By: #### 5 7021-8 #### [facility] CLIA [id number] [address] [place] [address] 42445 Platelet mean volume (Bld) [Entitic vol] 10.2 fL Normal 9.0-12.7 [facility] Comment on above: Order Comment: Speci men Type: BLOOD SPECIMEN [facility] Address: [address] [place] [address] 78842 Performed By: #### 5 7021-8 #### [facility] CLIA [id number] [address] [place] [address] 08946 Platelets (Bld) [#/Vol] 314 10*3/uL Normal 150-400 [facility] Comment on above: Order Comment: Speci men Type: BLOOD SPECIMEN [facility] Address: [address] [place] [address] Performed By: #### 5 7021-8 #### [facility] CLIA [id number] [address] [place] [address] 74981 RBC (Bld) [#/Vol] 4.50 10*6/uL Normal 4.20-6.00 [facility] Comment on above: Order Comment: Speci men Type: BLOOD SPECIMEN [facility] Address: [address] [place] [address]90 Performed By: #### 5 7021-8 #### [facility] CLIA [id number] [address] [place] [address] WBC (Bld) [#/Vol] 8.78 10*3/uL Normal 3.70-11.00 [facility] Comment on above: Order Comment: Speci men Type: BLOOD SPECIMEN [facility] Address: [address] [place] [address] Performed By: #### 5 7021-8 #### [facility] CLIA [id number] [address] [place] [address] Basophils (Bld) [#/Vol] 0.04 10*3/uL [facility] Basophils/100 WBC (Bld) 0.5 % [facility] Differential cell count method Nom (Bld) Auto [facility] Eosinophils (Bld) [#/Vol] 0.13 10*3/uL [facility] Eosinophils/100 WBC (Bld) 1.5 % [facility] Erythrocyte distribution width (RBC) [Ratio] 13.8 % 11.5 - 15.0 % [facility] Hematocrit (Bld) [Volume fraction] 42.6 % 39.0 - 51.0 % [facility] Hemoglobin (Bld) [Mass/Vol] 14.4 g/dL 13.0 - 17.0 g/dL [facility] Immature granulocytes (Bld) [#/Vol] 0.03 10*3/uL [facility] Immature granulocytes/100 WBC (Bld) 0.3 % [facility] Lymphocytes (Bld) [#/Vol] 2.18 10*3/uL [facility] Lymphocytes/100 WBC (Bld) 24.8 % [facility] MCH (RBC) [Entitic mass] 32.0 pg 26.0 - 34.0 pg [facility] MCHC (RBC) [Mass/Vol] 33.8 g/dL 30.5 - 36.0 g/dL [facility] MCV (RBC) [Entitic vol] 94.7 fL 80.0 - 100.0 fL [facility] Monocytes (Bld) [#/Vol] 0.60 10*3/uL [facility] Monocytes/100 WBC (Bld) 6.8 % [facility] Neutrophils (Bld) [#/Vol] 5.80 10*3/uL [facility] Neutrophils/100 WBC (Bld) 66.1 % [facility] Nucleated RBC (Bld) [#/Vol] NINF [facility] Nucleated RBC/100 WBC (Bld) [Ratio] 0.0 % /100 WBC [facility] Platelet mean volume (Bld) [Entitic vol] 10.2 fL 9.0 - 12.7 fL [facility] Platelets (Bld) [#/Vol] 314 10*3/uL [facility] RBC (Bld) [#/Vol] 4.50 10*6/uL 4.20 - 6.00 m/uL [facility] WBC (Bld) [#/Vol] 8.78 10*3/uL [facility] CT CHEST W IVCONon 4 CT CHEST W IVCON * * *Final Report* * * DATE OF EXAM: Oct 26 2023 10:05AM [facility] 0539 - CT CHEST W [...] any questions regarding this interpretation, please call [phone]. If you are unable to reach us at the number above, please feel free to contact [facility] eRadiology at [phone]. [id number] Normal [facility] CT Chest W contrast Tristin IMPRESSION: 1. New streaky scarring/discoid atelectasis in the bilateral lower lung mcgrath. 2. Subcentimeter nodular opacities measuring less than 5 mm, stable since 04/08/20. 3. No evidence of intrathoracic metastases. Transcribe Date/Time: Oct 26 2023 1:36P Dictated by: AAN CHAKRABORTY MD This examination was interpreted and the report reviewed and electronically signed by: ANA CHAKRABORTY MD on Oct 26 2023 2:26PM EST Thank you for allowing us to participate in the care of your patient. Should there be any questions regarding this interpretation, please call [phone]. If you are unable to reach us at the number above, please feel free to contact [facility]Radiology at [phone]. DIVISION OF RADIOLOGY * * *Final Report* * * DATE OF EXAM: Oct 26 2023 10:05AM [facility] 0539 - CT CHEST W [...] upper abdomen. Localizer images: No additional findings. DIVISION OF RADIOLOGY Provider, [facility] - 10/26/2023 * * *Final Report* * * DATE OF EXAM: Oct 26 2023 10:05AM [facility] 0539 - CT CHEST W [...] upper abdomen. Localizer images: No additional findings. IMPRESSION IMPRESSION: 1. New streaky scarring/discoid atelectasis in [...] any questions regarding this interpretation, please call [phone]. If you are unable to reach us at the number above, please feel free to contact [facility] eRadiology at [phone]. 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 Resected T1 N1 base [...] normal. Parotid and submandibular spaces are normal. Bankruptcy Processor spaces appear normal. Infrahyoid Neck: Hypopharynx, larynx, [...] are clear of focal consolidation or mass. Manager Store (topogram) images: Noncontributory IMPRESSION: Primary: 1: Expected post-treatment changes in the neck without evidence of recurrent disease in the primary site. Neck: 1: No evidence of abnormal lymph nodes. [email or web address] Transcribe Date/Time: Oct 26 2023 10:15A Dictated by: LIMA LIZ MD This examination was interpreted and the report reviewed and electronically signed by: LIMA LIZ MD on Oct 26 2023 10:35AM EST Thank you for allowing us to participate in the care of your patient. Should there be any questions regardi (more content not included)... Normal [facility] CT Neck W contrast Tristin 05-1 IMPRESSION: Primary: 1: Expected post-treatment changes in the neck without evidence of recurrent disease in the primary site. Neck: 1: No evidence of abnormal lymph nodes. [email or web address] Transcribe Date/Time: Oct 26 2023 10:15A Dictated by: LIMA LIZ MD This examination was interpreted and the report reviewed and electronically signed by: LIMA LIZ MD on Oct 26 2023 10:35AM EST Thank you for allowing us to participate in the care of your patient. Should there be any questions regarding this interpretation, please call [phone]. If you are unable to reach us at the number above, please feel free to [facility] at [phone]. 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 Resected T1 N1 base [...] normal. Parotid and submandibular spaces are normal. Bankruptcy Processor spaces appear normal. Infrahyoid Neck: Hypopharynx, larynx, [...] are clear of focal consolidation or mass. Manager Store (topogram) images: Noncontributory DIVISION OF RADIOLOGY ProviderDacia [facility] - 10/26/2023 * * *Final Report* * * DATE OF EXAM: Oct 26 2023 10:05AM [facility] 0013 - CT NECK SOFT [...] 1.8 mm of invasive disease (Stage I, bD4U4J7, HPV+ oropharyngeal SCC). Resected T1 N1 base [...] normal. Parotid and submandibular spaces are normal. Bankruptcy Processor spaces appear normal. Infrahyoid Neck: Hypopharynx, larynx, [...] are clear of focal consolidation or mass. Manager Store (topogram) images: Noncontributory IMPRESSION IMPRESSION: Primary: 1: Expected post-treatment changes in the neck without evidence of recurrent disease in the primary site. Neck: 1: No evidence of abnormal lymph nodes. [email or web address] Transcribe Date/Time: Oct 26 2023 10:15A Dictated by: LIMA LIZ MD This examination was interpreted and the report reviewed and electronically signed by: (more content not included)... [facility] CT Neck W contrast IVOrdered By: Ccf Provider on 10-26-2023 [facility] Comprehensive metabolic 2000 panelon 10-26-2023 Albumin [Mass/Vol] 4.3 g/dL Normal 3.9-4.9 [facility] Comment on above: Order Comment: Speci men Type: BLOOD SPECIMEN [facility] Address: [address] [place] [address] Performed By: #### 2 4323-8 #### [facility] CLIA [id number] [address] [place] [address] ALP [Catalytic activity/Vol] 75 U/L Normal 38-113 [facility] Comment on above: Order Comment: Speci men Type: BLOOD SPECIMEN [facility] Address: [address] [place] [address] Performed By: #### 2 4323-8 #### [facility] CLIA [id number] [address] [place] [address] 13786 ALT [Catalytic activity/Vol] 10 U/L Normal 10-54 [facility] Comment on above: Order Comment: Speci men Type: BLOOD SPECIMEN [facility] Address: [address] [place] [id number] Performed By: #### 2 4323-8 #### [facility] CLIA [id number] [address] [place] [address] Anion gap [Moles/Vol] 8 mmol/L Low 9-18 [facility] Comment on above: Order Comment: Speci men Type: BLOOD SPECIMEN [facility] Address: [address] [place] [id number] Performed By: #### 2 4323-8 #### [facility] CLIA [id number] [address] [place] [address] 06946 AST [Catalytic activity/Vol] 9 U/L Low 14-40 [facility] Comment on above: Order Comment: Speci men Type: BLOOD SPECIMEN [facility] Address: [address] [place], [place] [address] Performed By: #### 2 4323-8 #### [facility] CLIA [id number] [address] [place] [address] 76263 Bilirubin [Mass/Vol] 0.5 mg/dL Normal 0.2-1.3 [facility] Comment on above: Order Comment: Speci men Type: BLOOD SPECIMEN [facility] Address: [address] [place] [address] Performed By: #### 2 4323-8 #### [facility] CLIA [id number] [address] [place] [address] 85046 Calcium [Mass/Vol] 9.9 mg/dL Normal 8.5-10.2 [facility] Comment on above: Order Comment: Speci men Type: BLOOD SPECIMEN [facility] Address: [address] [place] [address] Performed By: #### 2 4323-8 #### [facility] CLIA [id number] [address] [place] [address] 08685 Chloride [Moles/Vol] 106 mmol/L High 97-105 [facility] Comment on above: Order Comment: Speci men Type: BLOOD SPECIMEN [facility] Address: [address] [place] [id number] Performed By: #### 2 4323-8 #### [facility] CLIA [id number] [address] [place] [address] 11059 CO2 [Moles/Vol] 27 mmol/L Normal 22-30 [facility] Comment on above: Order Comment: Speci men Type: BLOOD SPECIMEN [facility] Address: [address] [place] [address] Performed By: #### 2 4323-8 #### [facility] CLIA [id number] [address] [place] [address] Creatinine [Mass/Vol] 1.01 mg/dL Normal 0.73-1.22 [facility] Comment on above: Order Comment: Trevor jordan Type: BLOOD SPECIMEN [facility] Address: [address] [place], [place] [address] Performed By: #### 2 4323-8 #### [facility] CLIA [id number] [address] [place] [address] Creatinine and Glomerular filtration rate.predicted panel (S/P/Bld) 85 mL/min/1.73m??? Normal >=60 [facility] Comment on above: Order Comment: Trevro jordan Type: BLOOD SPECIMEN [facility]ing Facility[facility] Address: [address] [place] [address] Result Comment: Charisse mated Glomerular Filtration Rate [...] GFR. Performed By: #### 2 4323-8 #### [facility] CLIA [id number] [address] [place] [address] Glucose [Mass/Vol] 89 mg/dL Normal 74-99 [facility] Comment on above: Order Comment: Trevor jordan Type: BLOOD SPECIMEN Ordering Facility: [facility] Address: [address] [id number] Result Comment: The [place] Diabetes Association (ADA) provides guidance for cutoff [...] Standards of Medical Care in Diabetes 2016, [place] Diabetes Association. Diabetes Care. 2016.39(Suppl 1). Performed By: #### 2 4323-8 #### [facility] CLIA [id number] [address] [place] [address] Potassium [Moles/Vol] 4.0 mmol/L Normal 3.7-5.1 [facility] Comment on above: Order Comment: Speci men Type: BLOOD SPECIMEN [facility]ing Facility[facility] Address: [address] [place] [address] Performed By: #### 2 4323-8 #### [facility] CLIA [id number] [address] [place] [address] Protein [Mass/Vol] 6.4 g/dL Normal 6.3-8.0 [facility] Comment on above: Order Comment: Speci men Type: BLOOD SPECIMEN [facility]ing [facility] Address: [address] [phone] Performed By: #### 2 4323-8 #### [facility] CLIA [id number] [address] [place] [address] Sodium [Moles/Vol] 141 mmol/L Normal 136-144 [facility] Comment on above: Order Comment: Speci men Type: BLOOD SPECIMEN [facility]ing [facility] Address: [address] [phone] Performed By: #### 2 4323-8 #### [facility] CLIA [id number] [address] [place] [address] Urea nitrogen [Mass/Vol] 16 mg/dL Normal 9-24 [facility] Comment on above: Order Comment: Speci men Type: BLOOD SPECIMEN Ordering Facility[facility] Address: [address] [place] [address] Performed By: #### 2 4323-8 #### [facility] CLIA [id number] [address] [place], [place] [id number] Comprehensive metabolic 2000 panelOrdered By: Pauly Chan on 10-26-2023 Albumin [Mass/Vol] 4.3 g/dL 3.9 - 4.9 g/dL [facility] ALP [Catalytic activity/Vol] 75 U/L 38 - 113 U/L [facility] ALT [Catalytic activity/Vol] 10 U/L 10 - 54 [facility] Anion gap [Moles/Vol] 8 mmol/L Low 9 - 18 mmol/L [facility] AST [Catalytic activity/Vol] 9 U/L Low 14 - 40 U/L [facility] Bilirubin [Mass/Vol] 0.5 mg/dL 0.2 - 1 .3 mg/dL [facility] Calcium [Mass/Vol] 9.9 mg/dL 8.5 - 10. 2 mg/dL [facility] Chloride [Moles/Vol] 106 mmol/L High 97 - 10 5 mmol/L [facility] CO2 [Moles/Vol] 27 mmol/L 22 - 30 mmol/L [facility] Creatinine [Mass/Vol] 1.01 mg/dL 0.73 - 1.22 mg/dL [facility] GFR/1.73 sq M.predicted among non-blacks MDRD (S/P/Bld) [Vol rate/Area] 85 mL/min/{1.73_m2} - PINF [facility] Comment on above: Estimated Glomerular Filtration Rate (eGFR) is calculated using the 2020 CKD-EPI creatinine equation. This equation utilizes serum creatinine, sex, and age as parameters. The creatinine assay has traceable calibration to isotope dilution-mass spectrometry. Refer to KDIGO guidelines for clinical interpretation. In patients with unstable renal function, e.g. those with acute kidney injury, the eGFR may not accurately reflect actual GFR. Glucose [Mass/Vol] 89 mg/dL 74 - 99 mg/dL [facility] Comment on above: The [place] Diabete s Association (ADA) provides guidance for [...] Standards of Medical Care in Diabetes 2016, [place] Diabetes Association. Diabetes Care. 2016.39(Suppl 1). Interpretation and review of laboratory results Abnormal [facility] Potassium [Moles/Vol] 4.0 mmol/L 3.7 - 5.1 mmol/L [facility] Protein [Mass/Vol] 6.4 g/dL 6.3 - 8.0 g/dL [facility] Sodium [Moles/Vol] 141 mmol/L 136 - 144 mmol/L [facility] Urea nitrogen [Mass/Vol] 16 mg/dL 9 - 24 mg/dL [facility] Eosinophils/100 WBC Auto (Bl d)on 10-26-2023 Eosinophils/100 WBC (Bld) 1.5 % [facility] Erythrocyte distribution wid th Auto (RBC) [Ratio]on 10-26-2023 Erythrocyte distribution width (RBC) [Ratio] 13.8 % 11.5-15.0 [facility] Hematocrit Auto (Bld) [Volum e fraction]on 10-26-2023 Hematocrit (Bld) [Volume fraction] 42.6 % 39.0-51.0 [facility] Hemoglobin [Mass/volume] in Bloodon 10-26-2023 Hemoglobin (Bld) [Mass/Vol] 14.4 g/dL 13.0-17.0 [facility] Laboratory - Chemistry and C hemistry - challengeon 10-26-2023 Albumin [Mass/Vol] 4.3 g/dL 3.9-4.9 [facility] ALP [Catalytic activity/Vol] 75 U/L 38-113 [facility] ALT [Catalytic activity/Vol] 10 U/L 10-54 [facility] AST [Catalytic activity/Vol] 9 U/L 14-40 [facility] Bilirubin [Mass/Vol] 0.5 mg/dL 0.2-1.3 [facility] Calcium [Mass/Vol] 9.9 mg/dL 8.5-10.2 [facility] Chloride [Moles/Vol] 106 mmol/L 97-105 [facility] CO2 [Moles/Vol] 27 mmol/L 22-30 [facility] Creatinine [Mass/Vol] 1.01 mg/dL 0.73-1.22 [facility] Glucose [Mass/Vol] 89 mg/dL 74-99 [facility] Comment on above: The [place] Diabete s Association (ADA) provides guidance for [...] Standards of Medical Care in Diabetes 2016, [place] Diabetes Association. Diabetes Care. 2016.39(Suppl 1). Potassium [Moles/Vol] 4.0 mmol/L 3.7-5.1 [facility] Sodium [Moles/Vol] 141 mmol/L 136-144 [facility] Urea nitrogen [Mass/Vol] 16 mg/dL 9-24 [facility] Laboratory - Hematology and Cell countson 10-26-2023 Eosinophils (Bld) [#/Vol] 0.13 10*3/uL <0.46 [facility] Immature granulocytes (Bld) [#/Vol] 0.03 10*3/uL <0.10 [facility] Immature granulocytes/100 WBC (Bld) 0.3 % [facility] Leukocytes [#/volume] correc mone for nucleated erythrocytes in Blood by Automated counon 10-26-2023 WBC corrected for nucl RBC Auto (Bld) [#/Vol] 8.78 k/uL 3.70-11.00 [facility] Lymphocytes Auto (Bld) [#/Vo l]on 10-26-2023 Lymphocytes (Bld) [#/Vol] 2.18 10*3/uL 1.00-4.00 [facility] Lymphocytes/100 WBC Auto (Bl d)on 10-26-2023 Lymphocytes/100 WBC (Bld) 24.8 % [facility] MCH Auto (RBC) [Entitic mass ]on 10-26-2023 MCH (RBC) [Entitic mass] 32.0 pg 26.0-34.0 [facility] MCHC Auto (RBC) [Mass/Vol]on 10-26-2023 MCHC (RBC) [Mass/Vol] 33.8 g/dL 30.5-36.0 [facility] MCV Auto (RBC) [Entitic vol] on 10-26-2023 MCV (RBC) [Entitic vol] 94.7 fL 80.0-100.0 [facility] Monocytes Auto (Bld) [#/Vol] on 10-26-2023 Monocytes (Bld) [#/Vol] 0.60 10*3/uL <0.87 [facility] Monocytes/100 WBC Auto (Bld) on 10-26-2023 Monocytes/100 WBC (Bld) 6.8 % [facility] Neutrophils Auto (Bld) [#/Vo l]on 10-26-2023 Neutrophils (Bld) [#/Vol] 5.80 10*3/uL 1.45-7.50 [facility] Neutrophils/100 WBC Auto (Bl d)on 10-26-2023 Neutrophils/100 WBC (Bld) 66.1 % [facility] No Panel Informationon 10-25 Radiology Study observation (narrative) [facility] Estimated GFR (CKD-EPI) 85 mL/min/1.73m??? >=60 [facility] Comment on above: Estimated Glomerular Filtration Rate [...] 10-26-2023 Nucleated RBC (Bld) [#/Vol] 10*3/uL <0.01 [facility] Nucleated erythrocytes [Pres ence] in Blood by Automated counton 10-26-2023 Nucleated RBC Auto Ql (Bld) 0.0 /100{WBC} [facility] Platelet mean volume Auto (B ld) [Entitic vol]on 10-26-2023 Platelet mean volume (Bld) [Entitic vol] 10.2 fL 9.0-12.7 [facility] Platelets Auto (Bld) [#/Vol] on 10-26-2023 Platelets (Bld) [#/Vol] 314 10*3/uL 150-400 [facility] Protein [Mass/volume] in Ser um or Plasmaon 10-26-2023 Protein [Mass/Vol] 6.4 g/dL 6.3-8.0 [facility] RBC Auto (Bld) [#/Vol]on RBC (Bld) [#/Vol] 4.50 10*6/uL 4.20-6.00 [facility] Serum or plasma anion gap de terminationon 10-26-2023 Anion gap [Moles/Vol] 8 mmol/L 9-18 [facility] XR CERVICAL SPINE AP/LAT/FLE X/EXTon 10-16-2023 XR [...] activity/volume] in Serum or PlasmaOrdered By: Griselda Hastings on 10-09-2023 ALT [Catalytic activity/Vol] 8 U/L 7-52 [facility] Albumin [Mass/volume] in Ser um or Plasma by Bromocresol green (BCG) dye binding methoOrdered By: Griselda Hastings on 10-09-2023 Albumin BCG dye [Mass/Vol] 3.9 g/dL 3.5-5.7 [facility] Alkaline phosphatase [Enzyma tic activity/volume] in Serum or PlasmaOrdered By: Griselda Hastings on 10-09-2023 ALP [Catalytic activity/Vol] 59 U/L 34-104 [facility] Aspartate aminotransferase [ Enzymatic activity/volume] in Serum or PlasmaOrdered By: Griselda Hastings on 10-09-2023 AST [Catalytic activity/Vol] 7 U/L 13-39 [facility] Basophils Auto (Bld) [#/Vol] Ordered By: Griselda Hastings on 10-09-2023 Basophils (Bld) [#/Vol] 0.1 10*3/uL 0.0-0.2 [facility] Basophils/100 WBC Auto (Bld) Ordered By: Griselda Hastings on 10-09-2023 Basophils/100 WBC (Bld) 0.9 % . [facility] Bilirubin.total [Mass/volume ] in Serum or PlasmaOrdered By: Griselda Hastings on 10-09-2023 Bilirubin [Mass/Vol] 0.5 mg/dL 0.3-1.0 [facility] BioFire Not Detectedon 10-08 BioFire Not Detected Not detected Normal Not Detecte [facility] Comment on above: Result Comment: This is a duplicate RP2.1 COVID (PCR) result to be used for statistical tracking purpose only. PERFORMED BY: [facility] [address] [facility] [place] [id number] PATHOLOGIST LA[employer] CARMEN LYNCH M.D. Performed By: #### R DYAN PANEL UPP., CMP, BIOFIRECOVNOTDE, CBC ####[place] [address] COVID-19 Detected/Not Detect edOrdered By: Griselda Hastings on 10-09-2023 SARS-CoV-2 (COVID-19) RNA JER+non-probe Ql (Nph) Not detected Not Detecte [facility] Comment on above: This is a duplicate RP2.1 COVID (PCR) result to be used for statistical tracking purpose only. Calcium [Mass/volume] in Ser um or PlasmaOrdered By: Griselda Hastings on 10-09-2023 Calcium [Mass/Vol] 9.5 mg/dL 8.6-10.3 [facility] Carbon dioxide, total [Moles /volume] in Serum or PlasmaOrdered By: Griselda Hastings on 10-09-2023 CO2 [Moles/Vol] 30.0 mmol/L 21.0-31.0 [facility] Chloride [Moles/volume] in S rica or PlasmaOrdered By: Griselda Hastings on 10-09-2023 Chloride [Moles/Vol] 103 mmol/L 98-107 [facility] Complete Blood Count Auto Di ffon 10-09-2023 Basophils (Bld) [#/Vol] 0.1 10*3/uL Normal 0.0-0.2 [facility] Comment on above: Result Comment: PERF ORMED BY: [facility] [address] [facility] [place] [address] PATHOLOGIST [employer] CARMEN LYNCH M.D. Performed By: #### R DYAN PANEL UPP., CMP, BIOFIRECOVNOTDE, CBC ####[address] Basophils/100 WBC (Bld) 0.9 % Normal . [facility] Comment on above: Performed By: #### R DYAN PANEL UPP., CMP, BIOFIRECOVNOTDE, CBC ####[address] Eosinophils (Bld) [#/Vol] 0.1 10*3/uL Normal 0.0-0.45 [facility] Comment on above: Performed By: #### R DYAN PANEL UPP., CMP, BIOFIRECOVNOTDE, CBC ####[address] Eosinophils/100 WBC (Bld) 1.0 % Normal . [facility] Comment on above: Performed By: #### R DYAN PANEL UPP., CMP, BIOFIRECOVNOTDE, CBC ####[address] Erythrocyte distribution width (RBC) [Ratio] 14.3 % Normal 12.0-14.8 [facility] Comment on above: Performed By: #### R DYAN PANEL UPP., CMP, BIOFIRECOVNOTDE, CBC ####[address] Hematocrit (Bld) [Volume fraction] 41.9 % Normal 38.8-50.0 [facility] Comment on above: Performed By: #### R DYAN PANEL UPP., CMP, BIOFIRECOVNOTDE, CBC ####[address] Hemoglobin (Bld) [Mass/Vol] 14.4 g/dL Normal 13.0-17.0 [facility] Comment on above: Performed By: #### R DYAN PANEL UPP., CMP, BIOFIRECOVNOTDE, CBC ####[address] Lymphocytes (Bld) [#/Vol] 2.7 10*3/uL Normal 1.00-4.8 [facility] Comment on above: Performed By: #### R DYAN PANEL UPP., CMP, BIOFIRECOVNOTDE, CBC ####[address] Lymphocytes/100 WBC (Bld) 33.6 % Normal . [facility] Comment on above: Performed By: #### R DYAN PANEL UPP., CMP, BIOFIRECOVNOTDE, CBC ####[address] MCH (RBC) [Entitic mass] 32.7 pg Normal 27.5-35.2 [facility] Comment on above: Performed By: #### R DYAN PANEL UPP., CMP, BIOFIRECOVNOTDE, CBC ####[address] MCV (RBC) [Entitic vol] 94.8 fL Normal 83.5-101 [facility] Comment on above: Performed By: #### R DYAN PANEL UPP., CMP, BIOFIRECOVNOTDE, CBC ####[address] Mean Corpuscular HGB Conc 34.4 g/dL Normal 32.5-35.6 [facility] Comment on above: Performed By: #### R DYAN PANEL UPP., CMP, BIOFIRECOVNOTDE, CBC ####[address] Monocytes (Bld) [#/Vol] 0.6 10*3/uL Normal 0.0-0.8 [facility] Comment on above: Performed By: #### R DYAN PANEL UPP., CMP, BIOFIRECOVNOTDE, CBC ####[address] Monocytes/100 WBC (Bld) 7.5 % Normal . [facility] Comment on above: Performed By: #### R DYAN PANEL UPP., CMP, BIOFIRECOVNOTDE, CBC ####[address] Neutrophils (Bld) [#/Vol] 4.6 10*3/uL Normal 1.8-7.7 [facility] Comment on above: Performed By: #### R DYAN PANEL UPP., CMP, BIOFIRECOVNOTDE, CBC ####[address] Neutrophils/100 WBC (Bld) 57.0 % Normal . [facility] Comment on above: Performed By: #### R DYAN PANEL UPP., CMP, BIOFIRECOVNOTDE, CBC ####[address] NRBC% 0.2 /100{WBC} Normal 0-0.5 [facility] Comment on above: Performed By: #### R DYAN PANEL UPP., CMP, BIOFIRECOVNOTDE, CBC ####[address] Platelet mean volume (Bld) [Entitic vol] 8.3 fL Normal 6.6-10.1 [facility] Comment on above: Performed By: #### R DYAN PANEL UPP., CMP, BIOFIRECOVNOTDE, CBC ####[address] [address] [facility] Platelets (Bld) [#/Vol] 349 10*3/uL Normal 150-450 [facility] Comment on above: Performed By: #### R DYAN PANEL UPP., CMP, BIOFIRECOVNOTDE, CBC ####[address] [address] [facility] RBC (Bld) [#/Vol] 4.42 10*6/uL Normal 3.90-5.60 [facility] Comment on above: Performed By: #### R DYAN PANEL UPP., CMP, BIOFIRECOVNOTDE, CBC ####[address] WBC (Bld) [#/Vol] 8.1 10*3/uL Normal 4.1-10.5 [facility] Comment on above: Performed By: #### R DYAN PANEL UPP., CMP, BIOFIRECOVNOTDE, CBC ####[address] Comprehensive Metabolic Pane chanel 10-09-2023 Albumin [Mass/Vol] 3.9 g/dL Normal 3.5-5.7 [facility] Comment on above: Performed By: #### R DYAN PANEL UPP., CMP, BIOFIRECOVNOTDE, CBC ####[place] [id number] [facility] Albumin/Globulin [Mass ratio] 2.0 {ratio} Normal [facility] Comment on above: Performed By: #### R DYAN PANEL UPP., CMP, BIOFIRECOVNOTDE, CBC ####[address] [address] [facility] ALP [Catalytic activity/Vol] 59 U/L Normal 34-104 [facility] Comment on above: Result Comment: PERF ORMED BY: [facility] [address] [place] [address] PATHOLOGIST [employer] CARMEN LYNCH M.D. Performed By: #### R DYAN PANEL UPP., CMP, BIOFIRECOVNOTDE, CBC ####[place] [phone] [facility] ALT [Catalytic activity/Vol] 8 U/L Normal 7-52 [facility] Comment on above: Performed By: #### R DYAN PANEL UPP., CMP, BIOFIRECOVNOTDE, CBC ####[address] Anion gap [Moles/Vol] 9.5 mmol/L Normal 6.0-15.0 [facility] Comment on above: Performed By: #### R DYAN PANEL UPP., CMP, BIOFIRECOVNOTDE, CBC ####[address] AST [Catalytic activity/Vol] 7 U/L Low 13-39 [facility] Comment on above: Performed By: #### R DYAN PANEL UPP., CMP, BIOFIRECOVNOTDE, CBC ####[address] Bilirubin [Mass/Vol] 0.5 mg/dL Normal 0.3-1.0 [facility] Comment on above: Performed By: #### R DYAN PANEL UPP., CMP, BIOFIRECOVNOTDE, CBC ####[address] Calcium [Mass/Vol] 9.5 mg/dL Normal 8.6-10.3 [facility] Comment on above: Performed By: #### R DYAN PANEL UPP., CMP, BIOFIRECOVNOTDE, CBC ####[address] Chloride [Moles/Vol] 103 mmol/L Normal 98-107 [facility] Comment on above: Performed By: #### R DYAN PANEL UPP., CMP, BIOFIRECOVNOTDE, CBC ####[place] [id number] [address] CO2 [Moles/Vol] 30.0 mmol/L Normal 21.0-31.0 [facility] Comment on above: Performed By: #### R DYAN PANEL UPP., CMP, BIOFIRECOVNOTDE, CBC ####[address] Creatinine [Mass/Vol] 0.92 mg/dL Normal 0.70-1.30 [facility] Comment on above: Performed By: #### R DYAN PANEL UPP., CMP, BIOFIRECOVNOTDE, CBC ####[address] GFR/1.73 sq M.predicted MDRD (S/P/Bld) [Vol rate/Area] mL/min/{1.73_m2} Normal [facility] Comment on above: Performed By: #### R DYAN PANEL UPP., CMP, BIOFIRECOVNOTDE, CBC ####[address] Globulin (S) [Mass/Vol] 2.0 g/dL Normal [facility] Comment on above: Performed By: #### R DYAN PANEL UPP., CMP, BIOFIRECOVNOTDE, CBC ####[address] Glucose [Mass/Vol] 84 mg/dL Normal 70-100 [facility] Comment on above: Result Comment: [place] Glucose Reference Range is dependent on time and content of last meal. Glucose of more than 200 mg/dL in a nonstressed, ambulatory subject supports the diagnosis of Diabetes Mellitus. ADA recommended reference range Performed By: #### R DYAN PANEL UPP., CMP, BIOFIRECOVNOTDE, CBC ####[address] Potassium [Moles/Vol] 4.5 mmol/L Normal 3.5-5.1 [facility] Comment on above: Performed By: #### R DYAN PANEL UPP., CMP, BIOFIRECOVNOTDE, CBC ####[place] [id number] [address] Protein [Mass/Vol] 5.9 g/dL Low 6.4-8.9 [facility] Comment on above: Performed By: #### R DYAN PANEL UPP., CMP, BIOFIRECOVNOTDE, CBC ####[place] [id number] [address] Sodium [Moles/Vol] 138 mmol/L Normal 136-145 [facility] Comment on above: Performed By: #### R DYAN PANEL UPP., CMP, BIOFIRECOVNOTDE, CBC ####[address] Urea nitrogen [Mass/Vol] 14 mg/dL Normal 7-25 [facility] Comment on above: Performed By: #### R DYAN PANEL UPP., CMP, BIOFIRECOVNOTDE, CBC ####[address] Creatinine [Mass/volume] in Serum or PlasmaOrdered By: Griselda Hastings on 10-09-2023 Creatinine [Mass/Vol] 0.92 mg/dL 0.70-1.30 [facility] Eosinophils Auto (Bld) [#/Vo l]Ordered By: Griselda Hastings on 10-09-2023 Eosinophils (Bld) [#/Vol] 0.1 10*3/uL 0.0-0.45 [facility] Eosinophils/100 WBC Auto (Bl d)Ordered By: Griselda Hastings on 10-09-2023 Eosinophils/100 WBC (Bld) 1.0 % . [facility] Erythrocyte distribution wid th Auto (RBC) [Ratio]Ordered By: Griselda Hastings on 10-09-2023 Erythrocyte distribution width (RBC) [Ratio] 14.3 % 12.0-14.8 [facility] Globulin Calc (S) [Mass/Vol] Ordered By: Griselda Hastings on 10-09-2023 Globulin (S) [Mass/Vol] 2.0 g/dL [facility] Glucose [Mass/volume] in Ser um or PlasmaOrdered By: Griselda Hastings on 10-09-2023 Glucose [Mass/Vol] 84 mg/dL 70-100 [facility] Comment on above: ADA recommended refe rence rangeRandom Glucose Reference Range is dependent on time and content of last meal. Glucose of more than 200 mg/dL in a nonstressed, ambulatory subject supports the diagnosis of Diabetes Mellitus. Hematocrit Auto (Bld) [Volum e fraction]Ordered By: Griselda Hastings on 10-09-2023 Hematocrit (Bld) [Volume fraction] 41.9 % 38.8-50.0 [facility] Hemoglobin [Mass/volume] in BloodOrdered By: Griselda Hastings on 10-09-2023 Hemoglobin (Bld) [Mass/Vol] 14.4 g/dL 13.0-17.0 [facility] Leukocytes [#/volume] correc mone for nucleated erythrocytes in Blood by Automated counOrdered By: Griselda Hastings on 10-09-2023 WBC corrected for nucl RBC Auto (Bld) [#/Vol] 8.1 10*3/uL 4.1-10.5 [facility] Lymphocytes Auto (Bld) [#/Vo l]Ordered By: Griselda Hastings on 10-09-2023 Lymphocytes (Bld) [#/Vol] 2.7 10*3/uL 1.00-4.8 [facility] Lymphocytes/100 WBC Auto (Bl d)Ordered By: Griselda Hastings on 10-09-2023 Lymphocytes/100 WBC (Bld) 33.6 % . [facility] MCH Auto (RBC) [Entitic mass ]Ordered By: Griselda Hastings on 10-09-2023 MCH (RBC) [Entitic mass] 32.7 pg 27.5-35.2 [facility] MCHC Auto (RBC) [Mass/Vol]Or dered By: Griselda Hastings on 10-09-2023 MCHC (RBC) [Mass/Vol] 34.4 g/dL 32.5-35.6 [facility] MCV Auto (RBC) [Entitic vol] Ordered By: Griselda Hastings on 10-09-2023 MCV (RBC) [Entitic vol] 94.8 fL 83.5-101 [facility] Monocytes Auto (Bld) [#/Vol] Ordered By: Griselda Hastings on 10-09-2023 Monocytes (Bld) [#/Vol] 0.6 10*3/uL 0.0-0.8 [facility] Monocytes/100 WBC Auto (Bld) Ordered By: Griselda Hastings on 10-09-2023 Monocytes/100 WBC (Bld) 7.5 % . [facility] Neutrophils Auto (Bld) [#/Vo l]Ordered By: Griselda Hastings on 10-09-2023 Neutrophils (Bld) [#/Vol] 4.6 10*3/uL 1.8-7.7 [facility] Neutrophils/100 WBC Auto (Bl d)Ordered By: Griselda Hastings on 10-09-2023 Neutrophils/100 WBC (Bld) 57.0 % . [facility] No Panel InformationOrdered By: Griselda Hastings on 10-09-2023 Estimated GFR (CKD-EPI) > 60.0 mL/Min [facility] Creatinine Clearance (Chem N/A [facility] Nucleated erythrocytes [Pres ence] in Blood by Automated countOrdered By: Griselda Hastings on 10-09-2023 Nucleated RBC Auto Ql (Bld) 0.2 /100{WBC} 0-0.5 [facility] Platelet mean volume Auto (B ld) [Entitic vol]Ordered By: Griselda Hastings on 10-09-2023 Platelet mean volume (Bld) [Entitic vol] 8.3 fL 6.6-10.1 [facility] Platelets Auto (Bld) [#/Vol] Ordered By: Griselda Hastings on 10-09-2023 Platelets (Bld) [#/Vol] 349 10*3/uL 150-450 [facility] Potassium [Moles/volume] in Serum or PlasmaOrdered By: Griselda Hastings on 10-09-2023 Potassium [Moles/Vol] 4.5 mmol/L 3.5-5.1 [facility] Protein [Mass/volume] in Ser um or PlasmaOrdered By: Griselda Hastings on 10-09-2023 Protein [Mass/Vol] 5.9 g/dL 6.4-8.9 [facility] RBC Auto (Bld) [#/Vol]Ordere d By: Griselda Hastings on 10-09-2023 RBC (Bld) [#/Vol] 4.42 10*6/uL 3.90-5.60 [facility] Respiratory (Upper) Panel, P CRon 10-09-2023 [...] A H3 Blank Space ---- PERFORMED BY: [facility] [address] [place] [address] PATHOLOGIST LAST SCOURER CARMEN LYNCH M.D. Normal [facility] Comment on above: Performed By: #### R DYAN PANEL UPP., CMP, BIOFIRECOVNOTDE, CBC ####[place] [address] [place] [address] [facility] Respiratory pathogens DNA an d RNA panel - Nasopharynx by JER with non-probe detectionOrdered By: Griselda Hastings on 10-09-2023 Respiratory pathogens DNA and RNA panel JER+non-probe (Nph) [facility] Serum or plasma albumin/glob ulin mass ratioOrdered By: Griselda Hastings on 10-09-2023 Albumin/Globulin [Mass ratio] 2.0 {ratio} [facility] Serum or plasma anion gap de terminationOrdered By: Griselda Hastings on 10-09-2023 Anion gap [Moles/Vol] 9.5 mmol/L 6.0-15.0 [facility] Sodium [Moles/volume] in Ser um or PlasmaOrdered By: Griselda Hastings on 10-09-2023 Sodium [Moles/Vol] 138 mmol/L 136-145 [facility] Urea nitrogen [Mass/volume] in Serum or PlasmaOrdered By: Griselda Hastings on 10-09-2023 Urea nitrogen [Mass/Vol] 14 mg/dL 7-25 [facility] WBC Auto (Bld) [#/Vol]Ordere d By: Griselda Hastings on 10-09-2023 WBC (Bld) [#/Vol] 8.1 10*3/uL 4.1-10.5 [facility] XR chest 2V*on 10-09-2023 XR chest 2V* [facility] [place] [place] [address] XRay Report Signed Patient: Jovani Melendez MR#: [id number] : 1960 Acct:[id number] Age/Sex: 62 / M ADM Date: 10/09/23 Loc: XD Room: Type: [facility] Attending Dr: Griselda Hastings DO Copies to: Griselda Hastings DO Ordering Provider: Griselda Hastings DO Date of Service: 10/09/23 XR/XR chest [...] Filipe Perez M.D.10/09/2023 3:33 PM Dictation Location: [place] [address] Transcribed By: [facility] 10/09/23 1533 Dictated By: Filipe Perez DO 10/09/23 1532 Signed By: 10/09/23 1533 Normal [facility] MR TRANSFER OF OUTSIDE FILMS on 09-19-2023 MR TRANSFER OF OUTSIDE FILMS Outside images for comparison or treatment purposes, not interpreted by Radiologists. Normal [facility] Study Interpretation of outs jeffrey studyon 09-19-2023 [...] US ankle/arm indiceson 09-04 US ankle/arm indices [facility] [place] [address] [place], [place] [id number] Ultrasound Report Signed Patient: Jovani Melendez MR#: [id number] : 1960 Acct:[id number] Age/Sex: 62 / M ADM Date: 09/05/23 Loc: YURIDIA Room: Type: [facility] Attending Dr: Ruddy Harvey MD Ordering Provider: [...] Ruddy Harvey MD09/05/2023 2:40 PM Dictation Location: [place] [address] Tech: Agueda Helm Transcribed By: MARISA 09/05/23 1440 Dictated By: Ruddy Harvey MD 09/05/23 1439 Signed By: 09/05/23 1440 Normal [facility] MRI BRAIN W WO CONTRASTon [...] Vitor Hickman MD 08/01/23 Final result Normal [facility] MRI CERVICAL SPINE WO CONTRA STon 07-18-2023 [...] Vitor Hickman MD 08/01/23 Final result Normal [facility] COVID + FLU Quick Testingon 07-02-2023 SARS-CoV-2 (COVID-19) RNA JER+probe Ql (Unsp spec) Negative [facility] [place] Other COVID + FLU Quick Testing Negative [facility] [place] Other Quick Strepon 07-02-2023 S. pyogenes Org specific cx Ql (Throat) Negative [facility] [place] Other Quick Strep [facility] [place] Other RSVon 07-02-2023 RSV Ag IA Ql (Unsp spec) Negative [facility] [place] Other US UNI ankle/arm indiceson 1 07-31-2022 US UNI ankle/arm indices [facility] [place] [address] [place], [place] [id number] Ultrasound Report Signed Patient: Jovani Melendez MR#: [id number] : 1960 Acct:[id number] Age/Sex: 62 / M ADM Date: 05/30/23 Loc: [facility] Room: Type: [facility] Attending Dr: Ruddy Harvey MD Ordering Provider: [...] Ruddy Harvey MD05/30/2023 1:37 PM Dictation Location: [place] [address] Tech: Agueda Helm Transcribed By: MARISA 05/30/231336 Dictated By: Ruddy Harvey MD 05/30/231336 Signed By: 05/30/23 133 Normal [facility] Blood Urea Nitrogenon 2022 Urea nitrogen [Mass/Vol] 15 mg/dL Normal 7-25 [facility] Comment on above: Performed By: #### B RADHA FREITASAT ####[place] [address] [place] [id number] [facility] Creatinineon 05-07-2023 Creatinine [Mass/Vol] 0.91 mg/dL Normal 0.70-1.30 [facility] Comment on above: Performed By: #### B UN, CREAT ####[place] [address] [place] [id number] [place] Creatinine Clr Calc Pharmacy 83.52 Normal [facility] Comment on above: Result Comment: PERF ORMED BY: [facility] [address] [place] [address] PATHOLOGIST LAST SCOURER CARMEN LYNCH M.D. Performed By: #### B UN, CREAT ####[place] [address] [place] [address] [place] GFR/1.73 sq M.predicted MDRD (S/P/Bld) [Vol rate/Area] mL/min/{1.73_m2} Normal [facility] Comment on above: Performed By: #### B UN, CREAT ####[place] [id number] [place] Creatinine [Mass/volume] in Serum or PlasmaOrdered By: Ruddy Harvey on 05-07-2023 Creatinine [Mass/Vol] 0.91 mg/dL 0.70-1.30 [facility] No Panel InformationOrdered By: Ruddy Harvey on 05-07-2023 Estimated GFR (CKD-EPI) > 60.0 mL/Min [facility] Creatinine Clearance (Chem 83.52 [facility] Urea nitrogen [Mass/volume] in Serum or PlasmaOrdered By: Ruddy Harvey on 05-07-2023 Urea nitrogen [Mass/Vol] 15 mg/dL 7-25 [facility] CT angio neckon 05-04-2023 CT angio neck [facility] [place] [address] [place] [id number] Scan Report Signed Patient: Jovani Melendez MR#: [id number] : 1960 Acct:[id number] Age/Sex: 62 / M ADM Date: 05/04/23 Loc: CT Room: Type: [facility] Attending Dr: Nikole Thomason APRN, NUCLEAR ENGINEER-C Copies to: Nikole Thomason APRN,LUCIO Ordering Provider: Nikole Thomason APRN,LUCIO Date of Service: 05/04/23 CT/CT angio neck: H53.9, I65.23, I65.1, I66.09, I65.29 ([id number]) CT/CT angio head: H53.9, I65.23, I65.1, I66.09, [...] Alber Goodson M.D.05/04/2023 4:34 PM Dictation Location: [place] [address] Transcribed By: [facility] 05/04/23 6139 Dictated By: Alber Goodson II, MD 05/04/23 1549 Signed By: 05/04/23 9048 Normal [facility] Creatinine (Bld) [Mass/Vol]O rdered By: Nikole Thomason on 05-04-2023 Creatinine [Mass/Vol] 0.9 mg/dL 0.6-1.3 [facility] Comment on above: ER/ESD physician is notified/shown all ISTAT results.Critical values may be confirmed by laboratory testing ifdeemed necessary by ER attending doctor. ISTAT XRay CREon 05-04-2023 Creatinine [Mass/Vol] 0.9 mg/dL Normal 0.6-1.3 [facility] Comment on above: Result Comment: ER/E SD physician is notified/shown all ISTAT results. Critical values may be confirmed by laboratory testing if deemed necessary by ER attending doctor. Performed By: #### I SCRE #### [address] ISTAT GFR > 60.0 Normal [facility] Comment on above: Result Comment: PERF ORMED BY: [place] [address] PATHOLOGIST LAST SCOURER CARMEN LYNCH M.D. Performed By: #### I SCRE #### [address] No Panel InformationOrdered By: Nikole Agusneeta on 05-04-2023 Bedside Estimated GFR (eGFR) > 60.0 [facility] US arterial pvr rest Tom US arterial pvr rest LE [facility] [place] [address] [place] [address] Ultrasound Report Signed Patient: Jovani Melendez MR#: [id number] : 1960 Acct:[id number] Age/Sex: 62 / M ADM Date: 04/25/23 Loc: Room: Type: [facility] Attending Dr: Lilliam Cason MD Ordering [...] Ruddy Harvey MD04/26/2023 9:47 AM Dictation Location: [place] [address] Tech: Elisabet Mcclellan Transcribed By: MARISA 04/26/23946 Dictated By: Ruddy Harvey MD 04/26/23944 Signed By: 04/26/23946 Normal [facility] Alanine aminotransferase [En zymatic activity/volume] in Serum or PlasmaOrdered By: Griselda Hastings on 03-30-2023 ALT [Catalytic activity/Vol] 10 U/L Normal 7-52 [facility] Comment on above: Order Comment: Reaso n for Exam Night sweats;Hyperlipidemia Performed By: #### C MP, LIPID, CBC, TSH3 #### [facility] [address] [place] [address] Albumin [Mass/volume] in Ser um or Plasma by Bromocresol green (BCG) dye binding methoOrdered By: Griselda Hastings on 03-30-2023 Albumin BCG dye [Mass/Vol] 4.2 g/dL 3.5-5.7 [facility] Alkaline phosphatase [Enzyma tic activity/volume] in Serum or PlasmaOrdered By: Griselda Hastings on 03-30-2023 ALP [Catalytic activity/Vol] 61 U/L Normal 34-104 [facility] Comment on above: Order Comment: Reaso n for Exam Night sweats;Hyperlipidemia Performed By: #### C MP, LIPID, CBC, TSH3 #### [facility] [address] [place] [address] Aspartate aminotransferase [ Enzymatic activity/volume] in Serum or PlasmaOrdered By: Griselda Hastings on 03-30-2023 AST [Catalytic activity/Vol] 8 U/L Low 13-39 [facility] Comment on above: Order Comment: Reaso n for Exam Night sweats;Hyperlipidemia Performed By: #### C MP, LIPID, CBC, TSH3 #### [address] Automated basophil %Ordered By: Griselda Hastings on 03-30-2023 Basophils/100 WBC (Bld) 0.8 % Normal . [facility] Comment on above: Order Comment: Reaso n for Exam Night sweats;Hyperlipidemia Performed By: #### C MP, LIPID, CBC, TSH3 #### [address] Automated basophil countOrde red By: Griselda Hastings on 03-30-2023 Basophils (Bld) [#/Vol] 0.1 10*3/uL Normal 0.0-0.2 [facility] Comment on above: Order Comment: Reaso n for Exam Night sweats;Hyperlipidemia Result Comment: PERF ORMED BY: [place] [address] PATHOLOGIST LAST SCOURER CARMEN LYNCH M.D. Performed By: #### C MP, LIPID, CBC, TSH3 #### [address] Automated blood monocyte cou ntOrdered By: Griselda Hastings on 03-30-2023 Monocytes (Bld) [#/Vol] 0.8 10*3/uL Normal 0.0-0.8 [facility] Comment on above: Order Comment: Reaso n for Exam Night sweats;Hyperlipidemia Performed By: #### C MP, LIPID, CBC, TSH3 #### [address] Automated eosinophil %Ordere d By: Griselda Hastings on 03-30-2023 Eosinophils/100 WBC (Bld) 0.6 % Normal . [facility] Comment on above: Order Comment: Reaso n for Exam Night sweats;Hyperlipidemia Performed By: #### C MP, LIPID, CBC, TSH3 #### [facility] [address] Automated eosinophil countOr dered By: Griselda Hastings on 03-30-2023 Eosinophils (Bld) [#/Vol] 0.1 10*3/uL Normal 0.0-0.45 [facility] Comment on above: Order Comment: Reaso n for Exam Night sweats;Hyperlipidemia Performed By: #### C MP, LIPID, CBC, TSH3 #### [facility] [address] Automated monocyte %Ordered By: Griselda Hastings on 03-30-2023 Monocytes/100 WBC (Bld) 8.0 % Normal . [facility] Comment on above: Order Comment: Reaso n for Exam Night sweats;Hyperlipidemia Performed By: #### C MP, LIPID, CBC, TSH3 #### [facility] [address] [place] [address] Automated neutrophil %Ordere d By: Griselda Hastings on 03-30-2023 Neutrophils/100 WBC (Bld) 73.8 % Normal . [facility] Comment on above: Order Comment: Reaso n for Exam Night sweats;Hyperlipidemia Performed By: #### C MP, LIPID, CBC, TSH3 #### [facility] [address] [place] [address] Bilirubin.total [Mass/volume ] in Serum or PlasmaOrdered By: Griselda Hastings on 03-30-2023 Bilirubin [Mass/Vol] 0.9 mg/dL Normal 0.3-1.0 [facility] Comment on above: Order Comment: Reaso n for Exam Night sweats;Hyperlipidemia Performed By: #### C MP, LIPID, CBC, TSH3 #### [address] Calcium [Mass/volume] in Ser um or PlasmaOrdered By: Griselda Hastings on 03-30-2023 Calcium [Mass/Vol] 9.1 mg/dL Normal 8.6-10.3 [facility] Comment on above: Order Comment: Reaso n for Exam Night sweats;Hyperlipidemia Performed By: #### C MP, LIPID, CBC, TSH3 #### [facility] [address] [place] [address] [place] Carbon dioxide, total [Moles /volume] in Serum or PlasmaOrdered By: Griselda Hastings on 03-30-2023 CO2 [Moles/Vol] 27.0 mmol/L Normal 21.0-31.0 [facility] Comment on above: Order Comment: Reaso n for Exam Night sweats;Hyperlipidemia Performed By: #### C MP, LIPID, CBC, TSH3 #### [facility] [address] [place] [address] [place] Chloride [Moles/volume] in S rica or PlasmaOrdered By: Griselda Hastings on 03-30-2023 Chloride [Moles/Vol] 103 mmol/L Normal 98-107 [facility] Comment on above: Order Comment: Reaso n for Exam Night sweats;Hyperlipidemia Performed By: #### C MP, LIPID, CBC, TSH3 #### [facility] [address] [place] [address] [place] Cholesterol [Mass/volume] in Serum or PlasmaOrdered By: Griselda Hastings on 03-30-2023 Cholesterol [Mass/Vol] 224 mg/dL High 140-200 [facility] Comment on above: Chol less than 200 m g/dl low riskChol 201-239 mg/dl borderline riskChol 240 mg/dl and greater high risk Order Comment: Reaso n for Exam Night sweats;Hyperlipidemia Result Comment: Chol less than 200 mg/dl low risk Chol 201-239 mg/dl borderline risk Chol 240 mg/dl and greater high risk Performed By: #### C MP, LIPID, CBC, TSH3 ####[place] [address] [place] [id number] [place] Cholesterol in LDL Calc [Mas s/Vol]Ordered By: Griselda Hastings on 03-30-2023 Cholesterol in LDL [Mass/Vol] 148 mg/dL 0-100 [facility] Comment on above: LDL ATP III CLASSIFI CATIONLDL less than 100 mg/dL OptimalLDL 100-129 mg/dL Near or above optimalLDL 130-159 mg/dL Borderline highLDL 160-189 mg/dL HighLDL greater than 189 mg/dL Very high Cholesterol in VLDL Calc [Ma ss/Vol]Ordered By: Griselda Hastings on 03-30-2023 Cholesterol in VLDL [Mass/Vol] 31 mg/dL [facility] Complete Blood Count Auto Di ffon 03-30-2023 Mean Corpuscular HGB Conc 34.9 g/dL Normal 32.5-35.6 [facility] Comment on above: Order Comment: Reaso n for Exam Night sweats;Hyperlipidemia Performed By: #### C MP, LIPID, CBC, TSH3 #### [facility] [address] NRBC% 0.1 /100{WBC} Normal 0-0.5 [facility] Comment on above: Order Comment: Reaso n for Exam Night sweats;Hyperlipidemia Performed By: #### C MP, LIPID, CBC, TSH3 #### [facility] [address] Comprehensive Metabolic Pane chanel 03-30-2023 Albumin [Mass/Vol] 4.2 g/dL Normal 3.5-5.7 [facility] Comment on above: Order Comment: Reaso n for Exam Night sweats;Hyperlipidemia Performed By: #### C MP, LIPID, CBC, TSH3 #### [facility] [address] [place] [id number] [facility] GFR/1.73 sq M.predicted MDRD (S/P/Bld) [Vol rate/Area] mL/min/{1.73_m2} Normal [facility] Comment on above: Order Comment: Reaso n for Exam Night sweats;Hyperlipidemia Performed By: #### C MP, LIPID, CBC, TSH3 #### [facility] [address] [place] [id number] [facility] Creatinine [Mass/volume] in Serum or PlasmaOrdered By: Griselda Hastings on 03-30-2023 Creatinine [Mass/Vol] 0.82 mg/dL Normal 0.70-1.30 [facility] Comment on above: Order Comment: Reaso n for Exam Night sweats;Hyperlipidemia Performed By: #### C MP, LIPID, CBC, TSH3 #### [facility] [address] Erythrocyte distribution wid th [Ratio] by Automated countOrdered By: Griselda Hastings on 03-30-2023 Erythrocyte distribution width (RBC) [Ratio] 14.1 % Normal 12.0-14.8 [facility] Comment on above: Order Comment: Reaso n for Exam Night sweats;Hyperlipidemia Performed By: #### C MP, LIPID, CBC, TSH3 #### [facility] [address] Erythrocytes [#/volume] in B lood by Automated countOrdered By: Griselda Hastings on 03-30-2023 RBC (Bld) [#/Vol] 4.26 10*6/uL Normal 3.90-5.60 [facility] Comment on above: Order Comment: Reaso n for Exam Night sweats;Hyperlipidemia Performed By: #### C MP, LIPID, CBC, TSH3 #### [facility] [address] Glucose [Mass/volume] in Ser um or PlasmaOrdered By: Griselda Hastings on 03-30-2023 Glucose [Mass/Vol] 83 mg/dL Normal 70-100 [facility] Comment on above: ADA recommended refe rence rangeRandom Glucose Reference Range is dependent on time and content of last meal. Glucose of more than 200 mg/dL in a nonstressed, ambulatory subject supports the diagnosis of Diabetes Mellitus. Order Comment: Reaso n for Exam Night sweats;Hyperlipidemia Result Comment: [place] Glucose Reference Range is dependent on time and content of last meal. Glucose of more than 200 mg/dL in a nonstressed, ambulatory subject supports the diagnosis of Diabetes Mellitus. ADA recommended reference range Performed By: #### C MP, LIPID, CBC, TSH3 #### [facility] [address] [place] [id number] [facility] Hematocrit [Volume Fraction] of Blood by Automated countOrdered By: Griselda Hastings on 03-30-2023 Hematocrit (Bld) [Volume fraction] 41.4 % Normal 38.8-50.0 [facility] Comment on above: Order Comment: Reaso n for Exam Night sweats;Hyperlipidemia Performed By: #### C MP, LIPID, CBC, TSH3 #### [facility] [address] Hemoglobin [Mass/volume] in BloodOrdered By: Griselda Hastings on 03-30-2023 Hemoglobin (Bld) [Mass/Vol] 14.4 g/dL Normal 13.0-17.0 [facility] Comment on above: Order Comment: Reaso n for Exam Night sweats;Hyperlipidemia Performed By: #### C MP, LIPID, CBC, TSH3 #### [facility] [address] Leukocytes [#/volume] correc mone for nucleated erythrocytes in Blood by Automated counOrdered By: Griselda Hastings on 03-30-2023 WBC corrected for nucl RBC Auto (Bld) [#/Vol] 10.0 10*3/uL 4.1-10.5 [facility] Leukocytes [#/volume] in Blo od by Automated countOrdered By: Griselda Hastings on 03-30-2023 WBC (Bld) [#/Vol] 10.0 10*3/uL Normal 4.1-10.5 [facility] Comment on above: Order Comment: Reaso n for Exam Night sweats;Hyperlipidemia Performed By: #### C MP, LIPID, CBC, TSH3 #### [facility] [address] Lipid Panelon 03-30-2023 LDL Cholesterol,Calculated 148 mg/dL High 0-100 [facility] Comment on above: Order Comment: Reaso n for Exam Night sweats;Hyperlipidemia Result Comment: LDL ATP III CLASSIFICATION LDL less than 100 mg/dL Optimal LDL 100-129 mg/dL Near or above optimal LDL 130-159 mg/dL Borderline high LDL 160-189 mg/dL High LDL greater than 189 mg/dL Very high Performed By: #### C MP, LIPID, CBC, TSH3 ####[place] [address] Triglyceride w/Reflex 159 mg/dL High 0-149 [facility] Comment on above: Order Comment: Reaso n for Exam Night sweats;Hyperlipidemia Result Comment: TRIG ATP III CLASSIFICATION TRIG less than 150 mg/dL Normal TRIG 150-199 mg/dL Borderline high TRIG 200-500 mg/dL High TRIG greater than 500 mg/dL Very high Standard traceable to the Center for Disease Conrtrol and Prevention (CDC) test method. Performed By: #### C MP, LIPID, CBC, TSH3 ####[address] VLDL CHOLESTEROL 31 mg/dL Normal [facility] Comment on above: Order Comment: Reaso n for Exam Night sweats;Hyperlipidemia Performed By: #### C MP, LIPID, CBC, TSH3 ####[address] Lymphocytes [#/volume] in Bl ood by Automated countOrdered By: Griselda Hastings on 03-30-2023 Lymphocytes (Bld) [#/Vol] 1.7 10*3/uL Normal 1.00-4.8 [facility] Comment on above: Order Comment: Reaso n for Exam Night sweats;Hyperlipidemia Performed By: #### C MP, LIPID, CBC, TSH3 #### [address] Lymphocytes/100 leukocytes i n Blood by Automated countOrdered By: Griselda Hastings on 03-30-2023 Lymphocytes/100 WBC (Bld) 16.8 % Normal . [facility] Comment on above: Order Comment: Reaso n for Exam Night sweats;Hyperlipidemia Performed By: #### C MP, LIPID, CBC, TSH3 #### [address] MCH [Entitic mass] by Automa mone countOrdered By: Griselda Hastings on 03-30-2023 MCH (RBC) [Entitic mass] 33.9 pg Normal 27.5-35.2 [facility] Comment on above: Order Comment: Reaso n for Exam Night sweats;Hyperlipidemia Performed By: #### C MP, LIPID, CBC, TSH3 #### [address] MCHC Auto (RBC) [Mass/Vol]Or dered By: Griselda Hastings on 03-30-2023 MCHC (RBC) [Mass/Vol] 34.9 g/dL 32.5-35.6 [facility] MCV [Entitic volume] by Auto mated countOrdered By: Griselda Hastings on 03-30-2023 MCV (RBC) [Entitic vol] 97.1 fL Normal 83.5-101 [facility] Comment on above: Order Comment: Reaso n for Exam Night sweats;Hyperlipidemia Performed By: #### C MP, LIPID, CBC, TSH3 #### [facility] [address] Neutrophils [#/volume] in Bl ood by Automated countOrdered By: Griselda Hastings on 03-30-2023 Neutrophils (Bld) [#/Vol] 7.3 10*3/uL Normal 1.8-7.7 [facility] Comment on above: Order Comment: Reaso n for Exam Night sweats;Hyperlipidemia Performed By: #### C MP, LIPID, CBC, TSH3 #### [facility] [address] [place] [address] No Panel InformationOrdered By: Griselda Hastings on 03-30-2023 Estimated GFR (CKD-EPI) > 60.0 mL/Min [facility] Creatinine Clearance (Chem N/A [facility] Nucleated erythrocytes [Pres ence] in Blood by Automated countOrdered By: Griselda Hastings on 03-30-2023 Nucleated RBC Auto Ql (Bld) 0.1 /100{WBC} 0-0.5 [facility] Platelet mean volume [Entiti c volume] in Blood by Automated countOrdered By: Griselda Hastings on 03-30-2023 Platelet mean volume (Bld) [Entitic vol] 9.2 fL Normal 6.6-10.1 [facility] Comment on above: Order Comment: Reaso n for Exam Night sweats;Hyperlipidemia Performed By: #### C MP, LIPID, CBC, TSH3 #### [facility] [address] [place] [address] Platelets [#/volume] in Bloo d by Automated countOrdered By: Griselda Hastings on 03-30-2023 Platelets (Bld) [#/Vol] 221 10*3/uL Normal 150-450 [facility] Comment on above: Order Comment: Reaso n for Exam Night sweats;Hyperlipidemia Performed By: #### C MP, LIPID, CBC, TSH3 #### [facility] [address] Potassium [Moles/volume] in Serum or PlasmaOrdered By: Griselda Hastings on 03-30-2023 Potassium [Moles/Vol] 4.1 mmol/L Normal 3.5-5.1 [facility] Comment on above: Order Comment: Reaso n for Exam Night sweats;Hyperlipidemia Performed By: #### C MP, LIPID, CBC, TSH3 #### [facility] [address] [place] [address] Protein [Mass/volume] in Ser um or PlasmaOrdered By: Griselda Hastings on 03-30-2023 Protein [Mass/Vol] 6.1 g/dL Low 6.4-8.9 [facility] Comment on above: Order Comment: Reaso n for Exam Night sweats;Hyperlipidemia Performed By: #### C MP, LIPID, CBC, TSH3 #### [facility] [address] [place] [address] Serum globulin measurement b y calculation (mass/volume)Ordered By: Griselda Hastings on 03-30-2023 Globulin (S) [Mass/Vol] 1.9 g/dL [facility] Comment on above: Order Comment: Reaso n for Exam Night sweats;Hyperlipidemia Performed By: #### C MP, LIPID, CBC, TSH3 #### [facility] [address] [place] [address] Serum or plasma albumin/glob ulin mass ratioOrdered By: Griselda Hastings on 03-30-2023 Albumin/Globulin [Mass ratio] 2.2 {ratio} [facility] Comment on above: Order Comment: Reaso n for Exam Night sweats;Hyperlipidemia Performed By: #### C MP, LIPID, CBC, TSH3 #### [facility] [address] [place] [address] Serum or plasma anion gap de terminationOrdered By: Griselda Hastings on 03-30-2023 Anion gap [Moles/Vol] 12.1 mmol/L Normal 6.0-15.0 [facility] Comment on above: Order Comment: Reaso n for Exam Night sweats;Hyperlipidemia Performed By: #### C MP, LIPID, CBC, TSH3 #### [facility] [address] Serum or plasma high density lipoprotein (HDL) cholesterol measurementOrdered By: Griselda Hastings on 03-30-2023 Cholesterol in HDL [Mass/Vol] 44 mg/dL Normal 23-92 [facility] Comment on above: HDL CHOL ATP-III CLA SSIFICATION Cardiovascular RiskHDL > or equal to 60 mg/dL LOWHDL < 40 mg/dL HIGH Order Comment: Reaso n for Exam Night sweats;Hyperlipidemia Result Comment: HDL CHOL ATP-III CLASSIFICATION Cardiovascular Risk HDL > or equal to 60 mg/dL LOW HDL < 40 mg/dL HIGH Performed By: #### C MP, LIPID, CBC, TSH3 ####[id number] Serum or plasma total choles terol/high density lipoprotein (HDL) cholesterol mass ratOrdered By: Griselda Hastings on 03-30-2023 Cholesterol.total/Chol esterol in HDL [Mass ratio] 5.1 {ratio} Normal <5.0 [facility] Comment on above: Order Comment: Reaso n for Exam Night sweats;Hyperlipidemia Performed By: #### C MP, LIPID, CBC, TSH3 ####[facility] [id number] Sodium [Moles/volume] in Ser um or PlasmaOrdered By: Griselda Hastings on 03-30-2023 Sodium [Moles/Vol] 138 mmol/L Normal 136-145 [facility] Comment on above: Order Comment: Reaso n for Exam Night sweats;Hyperlipidemia Performed By: #### C MP, LIPID, CBC, TSH3 #### [facility] [address] Thyrotropin [Units/volume] i n Serum or PlasmaOrdered By: Griselda Hastings on 03-30-2023 TSH Qn 0.93 m[IU]/L Normal 0.45-5.33 [facility] Comment on above: Order Comment: Reaso n for Exam Night sweats;Hyperlipidemia Result Comment: PERF ORMED BY: [facility] [address] [place] [address] PATHOLOGIST LAST SCOURER CARMEN LYNCH M.D. Performed By: #### C MP, LIPID, CBC, TSH3 ####[id number] Triglyceride [Mass/volume] i n Serum or PlasmaOrdered By: Griselda Hastings on 03-30-2023 Triglyceride [Mass/Vol] 159 mg/dL 0-149 [facility] Comment on above: TRIG ATP III CLASSIF ICATIONTRIG less than 150 mg/dL NormalTRIG 150-199 mg/dL Borderline highTRIG 200-500 mg/dL High TRIG greater than 500 mg/dL Very highStandard traceable to the Center for Disease Conrtrol and Prevention (CDC) test method. Urea nitrogen [Mass/volume] in Serum or PlasmaOrdered By: Griselda Hastings on 03-30-2023 Urea nitrogen [Mass/Vol] 10 mg/dL Normal 7-25 [facility] Comment on above: Order Comment: Reaso n for Exam Night sweats;Hyperlipidemia Performed By: #### C MP, LIPID, CBC, TSH3 #### [facility] [address] COVID-19 Antigenon 3 COVID-19 Antigen Healthcare [...] developed and its performance characteristic determined by [employer] and validated at [facility]. This test has not been [...] for SARS Antigen by JAMILA PERFORMED BY: [facility] [address] [place] [address] PATHOLOGIST LAST SCOURER CARMEN LYNCH M.D. Normal [facility] Comment on above: Performed By: #### C OVID-19 YENNY, SOFIANEG ####[facility] [id number] [place] [address] [facility] COVID-19 SOFIAOrdered By: Brandyn Gaytan on 02-26-2023 SARS-CoV+SARS-CoV-2 (COVID-19) Ag IA.rapid Ql (Resp) Negative Negative [facility] Comment on above: This is a duplicate Yenny SARS Antigen (JAMILA) result to be used for statistical tracking purpose only. No Panel InformationOrdered By: Daniel Gaytan on 02-26-2023 SARS Antigen (LFIA) [facility] SARS Antigen (LFIA) [facility] Yenny Ag Negativeon 02-27-20 23 Yenny Ag Negative Negative Normal Negative [facility] Comment on above: Result Comment: This is a duplicate Yenny SARS Antigen (JAMILA) result to be used for statistical tracking purpose only. PERFORMED BY: [facility] [address] [place] [address] PATHOLOGIST LAST SCOURER CARMEN LYNCH M.D. Performed By: #### C OVID-19 YENNYERICEG ####[facility] [id number] No Panel Informationon 12-28 XR Pain Management C ase (Reference Range: not available) *FINAL Date of Service: 12/28/2022 08:49 Adm #: [id number] Reading Dr:RICARDO CAPPS Signoff Dr: RICARDO CAPPS PROCEDURE: PAIN MANAGEMENT CASE - BXR 0999 REASON FOR EXAM: SPONDYLOSIS W/O MYELOPATHY OR RADICULOPATHY, CERVICAL REGION RESULT: Patient Name: JOVANI MELENDEZ STUDY: PAIN MANAGEMENT CASE INDICATION: SPONDYLOSIS W/O MYELOPATHY OR RADICULOPATHY, CERVICAL REGION COMPARISON: None. ACCESSION NUMBER(S): [id number] ORDERING CLINICIAN: LIMA JOSEPH TECHNIQUE: See below: FINDINGS: Fluoroscopy was provided during therapeutic puncture in the region of the cervical spine for pain management. Total fluoroscopy time: 14.56mgy, images: 4. IMPRESSION: Fluoroscopy for pain management. Dictation workstation: [id number] Original Interpreting Physician: RICARDO CAPPS M.D. Original Transcribed by/Date: MMODAL Dec 28 2022 6:14A Original Electronically Signed by/Date: RICARDO CAPPS M.D. Dec 28 2022 9:04A Addendum Interpreting Physician: Addendum Transcribed by/Date: NO ADDENDUM Addendum Electronically Signed by/Date: [facility] [place] Quick Strepon 12-05-2022 S. pyogenes Org specific cx Ql (Throat) Negative A vida é feita de [place] Other Quick Strep A vida é fe[place] Other XR pre/post mri xrayon 11-15 XR pre/post mri xray [facility] [place] [address] [place] [address] MRI Report Signed Patient: Jovani Melendez MR#: [id number] : 1960 Acct:[id number] Age/Sex: 61 / M ADM Date: 11/15/22 Loc: [facility] Room: [facility] Attending Dr: Lima Joseph MD Copies to: Lima Joseph MD Ordering Provider: Lima Joseph MD Date of Service: 11/15/22 MR/MR lumbar spine wo con: M54.17 ([id number]) XR/XR pre/post mri xray: LUMBAR PRES MRI [...] Filipe Perez M.D.11/15/2022 1:41 PM Dictation Location: [facility]- Transcribed By: [facility] 11/15/22 1341 Dictated By: Filipe Perez DO 11/15/22 1332 Signed By: 11/15/22 1341 Normal [facility] CT Chest W contrast Tristin IMPRESSION: Stable CT of the chest. Unchanged [...] any questions regarding this interpretation, please call [phone]. If you are unable to reach us at the number above, please feel free to contact [facility] at [phone]. DIVISION OF RADIOLOGY * * *Final Report* * * DATE OF EXAM: Oct 27 2022 11:44AM [facility] 0539 - CT CHEST W [...] No abnormality in the imaged upper abdomen. Manager Store (topogram) images: No additional findings. DIVISION OF RADIOLOGY Provider, [facility] - 10/30/2022 * * *Final Report* * * DATE OF EXAM: Oct 27 2022 11:44AM [facility] 0539 - CT CHEST W [...] No abnormality in the imaged upper abdomen. Manager Store (topogram) images: No additional findings. IMPRESSION IMPRESSION: Stable CT of the chest. Unchanged [...] any questions regarding this interpretation, please call [phone]. If you are unable to reach us at the number above, please feel free to contact [facility] eRadiology at [phone]. [facility] CBC W Auto Differential pane l (Bld)on 10-27-2022 Basophils (Bld) [#/Vol] 0.03 10*3/uL [facility] Basophils/100 WBC (Bld) 0.3 % [facility] Differential cell count method Nom (Bld) Auto [facility] Eosinophils (Bld) [#/Vol] 0.06 10*3/uL [facility] Eosinophils/100 WBC (Bld) 0.7 % [facility] Erythrocyte distribution width (RBC) [Ratio] 14.0 % 11.5 - 15.0 % [facility] Hematocrit (Bld) [Volume fraction] 43.5 % 39.0 - 51.0 % [facility] Hemoglobin (Bld) [Mass/Vol] 14.5 g/dL 13.0 - 17.0 g/dL [facility] Immature granulocytes (Bld) [#/Vol] 0.03 10*3/uL [facility] Immature granulocytes/100 WBC (Bld) 0.3 % [facility] Lymphocytes (Bld) [#/Vol] 2.00 10*3/uL [facility] Lymphocytes/100 WBC (Bld) 21.9 % [facility] MCH (RBC) [Entitic mass] 31.3 pg 26.0 - 34.0 pg [facility] MCHC (RBC) [Mass/Vol] 33.3 g/dL 30.5 - 36.0 g/dL [facility] MCV (RBC) [Entitic vol] 93.8 fL 80.0 - 100.0 fL [facility] Monocytes (Bld) [#/Vol] 0.53 10*3/uL NINF [facility] Monocytes/100 WBC (Bld) 5.8 % [facility] Neutrophils (Bld) [#/Vol] 6.47 10*3/uL [facility] Neutrophils/100 WBC (Bld) 71.0 % [facility] Nucleated RBC (Bld) [#/Vol] NINF [facility] Nucleated RBC/100 WBC (Bld) [Ratio] 0.0 % /100 WBC [facility] Platelet mean volume (Bld) [Entitic vol] 10.8 fL 9.0 - 12.7 fL [facility] Platelets (Bld) [#/Vol] 253 10*3/uL [facility] RBC (Bld) [#/Vol] 4.64 10*6/uL 4.20 - 6.00 m/uL [facility] WBC (Bld) [#/Vol] 9.12 10*3/uL [facility] CT Neck W contrast Tristin 05-1 IMPRESSION: Primary NIRADS Category: 1. Expected post-treatment changes in the neck without evidence of recurrent disease in the primary site. Neck NIRADS Category: 1. No evidence of abnormal lymph nodes. [email or web address] Transcribe Date/Time: Oct 27 2022 11:56A Dictated by: KATJA HAMPTON MD This examination was interpreted and the report reviewed and electronically signed by: KATJA HAMPTON MD on Oct 27 2022 12:14PM EST Thank you for allowing us to participate in the care of your patient. Should there be any questions regarding this interpretation, please call [phone]. If you are unable to reach us at the number above, please feel free to contact [facility] at [phone]. 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 Parotid and submandibular spaces are normal. Bankruptcy Processor spaces appear normal. Infrahyoid Neck: Hypopharynx, larynx, [...] are clear of focal consolidation or mass. 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 Parotid and submandibular spaces are normal. Bankruptcy Processor spaces appear normal. Infrahyoid Neck: Hypopharynx, larynx, [...] are clear of focal consolidation or mass. IMPRESSION IMPRESSION: Primary NIRADS Category: 1. Expected post-treatment changes in the neck without evidence of recurrent disease in the primary site. Neck NIRADS Category: 1. No evidence of abnormal lymph nodes. [email or web address] Transcribe Date/Time: Oct 27 2022 11:56A Dictated by: KATJA HAMPTON MD This examination was interpreted and the report reviewed and electronically signed by: KATJA HAMPTON MD on Oct 27 2022 12:14PM EST Thank you for allowing us to participate in the care of your patient. Should there be any questions regarding this interpretation, please call [phone]. If you are unable to reach us at the number above, please feel free to contact [facility]Radiology at [phone]. [facility] CT Neck W contrast IVOrdered By: Dacia Provider on 10-27-2022 [facility] Comprehensive metabolic 2000 panelOrdered By: Kelly Goodson on 10-27-2022 Albumin [Mass/Vol] 4.3 g/dL 3.9 - 4.9 g/dL [facility] ALP [Catalytic activity/Vol] 89 U/L 38 - 113 U/L [facility] ALT [Catalytic activity/Vol] 7 U/L Low 10 - 54 U/L [facility] Anion gap [Moles/Vol] 10 mmol/L 9 - 18 mmol/L [facility] AST [Catalytic activity/Vol] 8 U/L Low 14 - 40 U/L [facility] Bilirubin [Mass/Vol] 0.3 mg/dL 0.2 - 1 .3 mg/dL [facility] Calcium [Mass/Vol] 9.6 mg/dL 8.5 - 10. 2 mg/dL [facility] Chloride [Moles/Vol] 104 mmol/L 97 - 10 5 mmol/L [facility] CO2 [Moles/Vol] 27 mmol/L 22 - 30 mmol/L [facility] Creatinine [Mass/Vol] 0.93 mg/dL 0.73 - 1.22 mg/dL [facility] GFR/1.73 sq M.predicted among non-blacks MDRD (S/P/Bld) [Vol rate/Area] 95 mL/min/{1.73_m2} - PINF [facility] Comment on above: Estimated Glomerular Filtration Rate (eGFR) is calculated using the 2020 CKD-EPI creatinine equation. This equation utilizes serum creatinine, sex, and age as parameters. The creatinine assay has traceable calibration to isotope dilution-mass spectrometry. Refer to KDIGO guidelines for clinical interpretation. In patients with unstable renal function, e.g. those with acute kidney injury, the eGFR may not accurately reflect actual GFR. Glucose [Mass/Vol] 98 mg/dL 74 - 99 mg/dL [facility] Comment on above: The [place] Diabete s Association (ADA) provides guidance for [...] Standards of Medical Care in Diabetes 2016, [place] Diabetes Association. Diabetes Care. 2016.39(Suppl 1). Interpretation and review of laboratory results Abnormal [facility] Potassium [Moles/Vol] 4.5 mmol/L 3.7 - 5.1 mmol/L [facility] Protein [Mass/Vol] 6.6 g/dL 6.3 - 8.0 g/dL [facility] Sodium [Moles/Vol] 141 mmol/L 136 - 144 mmol/L [facility] Urea nitrogen [Mass/Vol] 12 mg/dL 9 - 24 mg/dL [facility] No Panel Informationon 10-27 Radiology Study observation (narrative) [facility] Alanine aminotransferase [En zymatic activity/volume] in Serum or PlasmaOrdered By: Griselda Hastings on 10-24-2022 ALT [Catalytic activity/Vol] 7 U/L 7-52 [facility] Albumin [Mass/volume] in Ser um or Plasma by Bromocresol green (BCG) dye binding methoOrdered By: Griselda Hastings on 10-24-2022 Albumin BCG dye [Mass/Vol] 4.2 g/dL 3.5-5.7 [facility] Alkaline phosphatase [Enzyma tic activity/volume] in Serum or PlasmaOrdered By: Griselda Hastings on 10-24-2022 ALP [Catalytic activity/Vol] 76 U/L 34-104 [facility] Aspartate aminotransferase [ Enzymatic activity/volume] in Serum or PlasmaOrdered By: Griselda Hastings on 10-24-2022 AST [Catalytic activity/Vol] 10 U/L 13-39 [facility] Basophils Auto (Bld) [#/Vol] Ordered By: Griselda Hastings on 10-24-2022 Basophils (Bld) [#/Vol] 0.0 10*3/uL 0.0-0.2 [facility] Basophils/100 WBC Auto (Bld) Ordered By: Griselda Hastings on 10-24-2022 Basophils/100 WBC (Bld) 0.9 % . [facility] Bilirubin.total [Mass/volume ] in Serum or PlasmaOrdered By: Griselda Hastings on 10-24-2022 Bilirubin [Mass/Vol] 0.4 mg/dL 0.3-1.0 [facility] Calcium [Mass/volume] in Ser um or PlasmaOrdered By: Griselda Hastings on 10-24-2022 Calcium [Mass/Vol] 9.1 mg/dL 8.6-10.3 [facility] Carbon dioxide, total [Moles /volume] in Serum or PlasmaOrdered By: Griselda Hastings on 10-24-2022 CO2 [Moles/Vol] 28.3 mmol/L 21.0-31.0 [facility] Chloride [Moles/volume] in S r[place] or PlasmaOrdered By: Griselda Hastings on 10-24-2022 Chloride [Moles/Vol] 105 mmol/L 98-107 [facility] Cholesterol [Mass/volume] in Serum or PlasmaOrdered By: Griselda Hastings on 10-24-2022 Cholesterol [Mass/Vol] 240 mg/dL 140-200 [facility] Comment on above: Chol less than 200 m g/dl low riskChol 201-239 mg/dl borderline riskChol 240 mg/dl and greater high risk Cholesterol in LDL Calc [Mas s/Vol]Ordered By: Griselda Hastings on 10-24-2022 Cholesterol in LDL [Mass/Vol] 169 mg/dL 0-100 [facility] Comment on above: LDL ATP III CLASSIFI CATIONLDL less than 100 mg/dL OptimalLDL 100-129 mg/dL Near or above optimalLDL 130-159 mg/dL Borderline highLDL 160-189 mg/dL HighLDL greater than 189 mg/dL Very high Cholesterol in VLDL Calc [Ma ss/Vol]Ordered By: Griselda Hastings on 10-24-2022 Cholesterol in VLDL [Mass/Vol] 35 mg/dL [facility] Complete Blood Count Auto Di ffon 10-24-2022 Basophils (Bld) [#/Vol] 0.0 10*3/uL Normal 0.0-0.2 [facility] Comment on above: Order Comment: Reaso n for Exam Hyperlipidemia Result Comment: PERF ORMED BY: [place] [address] PATHOLOGIST LAST SCOURER CARMEN LYNCH M.D. Performed By: #### P SAS, TSH3, LIPID, CMP, CBC #### [address] Basophils/100 WBC (Bld) 0.9 % Normal . [facility] Comment on above: Order Comment: Reaso n for Exam Hyperlipidemia Performed By: #### P SAS, TSH3, LIPID, CMP, CBC #### [address] Eosinophils (Bld) [#/Vol] 0.1 10*3/uL Normal 0.0-0.45 [facility] Comment on above: Order Comment: Reaso n for Exam Hyperlipidemia Performed By: #### P SAS, TSH3, LIPID, CMP, CBC #### [place] [address] [place] Eosinophils/100 WBC (Bld) 2.0 % Normal . [facility] Comment on above: Order Comment: Reaso n for Exam Hyperlipidemia Performed By: #### P SAS, TSH3, LIPID, CMP, CBC #### [address] Erythrocyte distribution width (RBC) [Ratio] 14.7 % Normal 12.0-14.8 [facility] Comment on above: Order Comment: Reaso n for Exam Hyperlipidemia Performed By: #### P SAS, TSH3, LIPID, CMP, CBC #### [address] Hematocrit (Bld) [Volume fraction] 43.4 % Normal 38.8-50.0 [facility] Comment on above: Order Comment: Reaso n for Exam Hyperlipidemia Performed By: #### P SAS, TSH3, LIPID, CMP, CBC #### [address] Hemoglobin (Bld) [Mass/Vol] 14.5 g/dL Normal 13.0-17.0 [facility] Comment on above: Order Comment: Reaso n for Exam Hyperlipidemia Performed By: #### P SAS, TSH3, LIPID, CMP, CBC #### [place] [address] [place] Lymphocytes (Bld) [#/Vol] 2.0 10*3/uL Normal 1.00-4.8 [facility] Comment on above: Order Comment: Reaso n for Exam Hyperlipidemia Performed By: #### P SAS, TSH3, LIPID, CMP, CBC #### [place] [address] [place] Lymphocytes/100 WBC (Bld) 39.8 % Normal . [facility] Comment on above: Order Comment: Reaso n for Exam Hyperlipidemia Performed By: #### P SAS, TSH3, LIPID, CMP, CBC #### [address] MCH (RBC) [Entitic mass] 31.5 pg Normal 27.5-35.2 [facility] Comment on above: Order Comment: Reaso n for Exam Hyperlipidemia Performed By: #### P SAS, TSH3, LIPID, CMP, CBC #### [address] MCV (RBC) [Entitic vol] 94.0 fL Normal 83.5-101 [facility] Comment on above: Order Comment: Reaso n for Exam Hyperlipidemia Performed By: #### P SAS, TSH3, LIPID, CMP, CBC #### [address] Mean Corpuscular HGB Conc 33.5 g/dL Normal 32.5-35.6 [facility] Comment on above: Order Comment: Reaso n for Exam Hyperlipidemia Performed By: #### P SAS, TSH3, LIPID, CMP, CBC #### [place] [address] [place] Monocytes (Bld) [#/Vol] 0.3 10*3/uL Normal 0.0-0.8 [facility] Comment on above: Order Comment: Reaso n for Exam Hyperlipidemia Performed By: #### P SAS, TSH3, LIPID, CMP, CBC #### [address] Monocytes/100 WBC (Bld) 5.4 % Normal . [facility] Comment on above: Order Comment: Reaso n for Exam Hyperlipidemia Performed By: #### P SAS, TSH3, LIPID, CMP, CBC #### [address] Neutrophils (Bld) [#/Vol] 2.6 10*3/uL Normal 1.8-7.7 [facility] Comment on above: Order Comment: Reaso n for Exam Hyperlipidemia Performed By: #### P SAS, TSH3, LIPID, CMP, CBC #### [facility] [address] [place] [address] [place] Neutrophils/100 WBC (Bld) 51.9 % Normal . [facility] Comment on above: Order Comment: Reaso n for Exam Hyperlipidemia Performed By: #### P SAS, TSH3, LIPID, CMP, CBC #### [facility] [address] [place] [address] [place] NRBC% 0.1 /100{WBC} Normal 0-0.5 [facility] Comment on above: Order Comment: Reaso n for Exam Hyperlipidemia Performed By: #### P SAS, TSH3, LIPID, CMP, CBC #### [facility] [address] Platelet mean volume (Bld) [Entitic vol] 9.6 fL Normal 6.6-10.1 [facility] Comment on above: Order Comment: Reaso n for Exam Hyperlipidemia Performed By: #### P SAS, TSH3, LIPID, CMP, CBC #### [facility] [address] [place] [address] [place] Platelets (Bld) [#/Vol] 247 10*3/uL Normal 150-450 [facility] Comment on above: Order Comment: Reaso n for Exam Hyperlipidemia Performed By: #### P SAS, TSH3, LIPID, CMP, CBC #### [facility] [address] [place] [address] [place] RBC (Bld) [#/Vol] 4.61 10*6/uL Normal 3.90-5.60 [facility] Comment on above: Order Comment: Reaso n for Exam Hyperlipidemia Performed By: #### P SAS, TSH3, LIPID, CMP, CBC #### [facility] [address] [place] [id number] [place] WBC (Bld) [#/Vol] 5.0 10*3/uL Normal 4.1-10.5 [facility] Comment on above: Order Comment: Reaso n for Exam Hyperlipidemia Performed By: #### P SAS, TSH3, LIPID, CMP, CBC #### [facility] [address] Comprehensive Metabolic Pane chanel 10-24-2022 Albumin [Mass/Vol] 4.2 g/dL Normal 3.5-5.7 [facility] Comment on above: Order Comment: Reaso n for Exam Hyperlipidemia Performed By: #### P SAS, TSH3, LIPID, CMP, CBC #### [facility] [address] Albumin/Globulin [Mass ratio] 2.0 {ratio} Normal The [facility] Comment on above: Order Comment: Reaso n for Exam Hyperlipidemia Performed By: #### P SAS, TSH3, LIPID, CMP, CBC #### [facility] [address] [place] [address] ALP [Catalytic activity/Vol] 76 U/L Normal 34-104 [facility] Comment on above: Order Comment: Reaso n for Exam Hyperlipidemia Performed By: #### P SAS, TSH3, LIPID, CMP, CBC #### [address] ALT [Catalytic activity/Vol] 7 U/L Normal 7-52 [facility] Comment on above: Order Comment: Reaso n for Exam Hyperlipidemia Performed By: #### P SAS, TSH3, LIPID, CMP, CBC #### [address] Anion gap [Moles/Vol] 11.7 mmol/L Normal 6.0-15.0 Th e [facility] Comment on above: Order Comment: Reaso n for Exam Hyperlipidemia Performed By: #### P SAS, TSH3, LIPID, CMP, CBC #### [address] AST [Catalytic activity/Vol] 10 U/L Low 13-39 [facility] Comment on above: Order Comment: Reaso n for Exam Hyperlipidemia Performed By: #### P SAS, TSH3, LIPID, CMP, CBC #### [address] Bilirubin [Mass/Vol] 0.4 mg/dL Normal 0.3-1.0 [facility] Comment on above: Order Comment: Reaso n for Exam Hyperlipidemia Performed By: #### P SAS, TSH3, LIPID, CMP, CBC #### [facility] [address] Calcium [Mass/Vol] 9.1 mg/dL Normal 8.6-10.3 [facility] Comment on above: Order Comment: Reaso n for Exam Hyperlipidemia Performed By: #### P SAS, TSH3, LIPID, CMP, CBC #### [facility] [address] [place] [address] Chloride [Moles/Vol] 105 mmol/L Normal 98-107 [facility] Comment on above: Order Comment: Reaso n for Exam Hyperlipidemia Performed By: #### P SAS, TSH3, LIPID, CMP, CBC #### [address] CO2 [Moles/Vol] 28.3 mmol/L Normal 21.0-31.0 The [facility] Comment on above: Order Comment: Reaso n for Exam Hyperlipidemia Performed By: #### P SAS, TSH3, LIPID, CMP, CBC #### [address] Creatinine [Mass/Vol] 0.88 mg/dL Normal 0.70-1.30 [facility] Comment on above: Order Comment: Reaso n for Exam Hyperlipidemia Performed By: #### P SAS, TSH3, LIPID, CMP, CBC #### [address] GFR/1.73 sq M.predicted MDRD (S/P/Bld) [Vol rate/Area] mL/min/{1.73_m2} Normal [facility] Comment on above: Order Comment: Reaso n for Exam Hyperlipidemia Performed By: #### P SAS, TSH3, LIPID, CMP, CBC #### [address] Globulin (S) [Mass/Vol] 2.1 g/dL Normal [facility] Comment on above: Order Comment: Reaso n for Exam Hyperlipidemia Performed By: #### P SAS, TSH3, LIPID, CMP, CBC #### [facility] [address] [place] [address] [place] Glucose [Mass/Vol] 82 mg/dL Normal 70-100 [facility] Comment on above: Order Comment: Reaso n for Exam Hyperlipidemia Result Comment: [place] Glucose Reference Range is dependent on time and content of last meal. Glucose of more than 200 mg/dL in a nonstressed, ambulatory subject supports the diagnosis of Diabetes Mellitus. ADA recommended reference range Performed By: #### P SAS, TSH3, LIPID, CMP, CBC #### [facility] [address] Potassium [Moles/Vol] 4.0 mmol/L Normal 3.5-5.1 [facility] Comment on above: Order Comment: Reaso n for Exam Hyperlipidemia Performed By: #### P SAS, TSH3, LIPID, CMP, CBC #### [address] Protein [Mass/Vol] 6.3 g/dL Low 6.4-8.9 [facility] Comment on above: Order Comment: Reaso n for Exam Hyperlipidemia Performed By: #### P SAS, TSH3, LIPID, CMP, CBC #### [place] [address] [place] Sodium [Moles/Vol] 141 mmol/L Normal 136-145 [facility] Comment on above: Order Comment: Reaso n for Exam Hyperlipidemia Performed By: #### P SAS, TSH3, LIPID, CMP, CBC #### [facility] [address] [place] [address] [place] Urea nitrogen [Mass/Vol] 15 mg/dL Normal 7-25 [facility] Comment on above: Order Comment: Reaso n for Exam Hyperlipidemia Performed By: #### P SAS, TSH3, LIPID, CMP, CBC #### [place] [address] [place] Creatinine [Mass/volume] in Serum or PlasmaOrdered By: Griselda Hastings on 10-24-2022 Creatinine [Mass/Vol] 0.88 mg/dL 0.70-1.30 [facility] Eosinophils Auto (Bld) [#/Vo l]Ordered By: Griselda Hastings on 10-24-2022 Eosinophils (Bld) [#/Vol] 0.1 10*3/uL 0.0-0.45 [facility] Eosinophils/100 WBC Auto (Bl d)Ordered By: Griselda Hastings on 10-24-2022 Eosinophils/100 WBC (Bld) 2.0 % . [facility] Erythrocyte distribution wid th Auto (RBC) [Ratio]Ordered By: Griselda Hastings on 10-24-2022 Erythrocyte distribution width (RBC) [Ratio] 14.7 % 12.0-14.8 [facility] Globulin Calc (S) [Mass/Vol] Ordered By: Griselda Hastings on 10-24-2022 Globulin (S) [Mass/Vol] 2.1 g/dL [facility] Glucose [Mass/volume] in Ser um or PlasmaOrdered By: Griselda Hastings on 10-24-2022 Glucose [Mass/Vol] 82 mg/dL 70-100 [facility] Comment on above: ADA recommended refe rence rangeRandom Glucose Reference Range is dependent on time and content of last meal. Glucose of more than 200 mg/dL in a nonstressed, ambulatory subject supports the diagnosis of Diabetes Mellitus. Hematocrit Auto (Bld) [Volum e fraction]Ordered By: Griselda Hastings on 10-24-2022 Hematocrit (Bld) [Volume fraction] 43.4 % 38.8-50.0 [facility] Hemoglobin [Mass/volume] in BloodOrdered By: Griselda Hastings on 10-24-2022 Hemoglobin (Bld) [Mass/Vol] 14.5 g/dL 13.0-17.0 [facility] Leukocytes [#/volume] correc mone for nucleated erythrocytes in Blood by Automated counOrdered By: Griselda Hastings on 10-24-2022 WBC corrected for nucl RBC Auto (Bld) [#/Vol] 5.0 10*3/uL 4.1-10.5 [facility] Lipid Panelon 10-24-2022 Cholesterol [Mass/Vol] 240 mg/dL High 140-200 Th e [facility] Comment on above: Order Comment: Reaso n for Exam Hyperlipidemia Result Comment: Chol less than 200 mg/dl low risk Chol 201-239 mg/dl borderline risk Chol 240 mg/dl and greater high risk Performed By: #### P SAS, TSH3, LIPID, CMP, CBC #### [facility] [address] [place] [address] [place] Cholesterol in HDL [Mass/Vol] 36 mg/dL Normal 29-71 [facility] Comment on above: Order Comment: Reaso n for Exam Hyperlipidemia Result Comment: HDL CHOL ATP-III CLASSIFICATION Cardiovascular Risk HDL > or equal to 60 mg/dL LOW HDL < 40 mg/dL HIGH Performed By: #### P SAS, TSH3, LIPID, CMP, CBC #### [facility] [address] [place] [address] [place] Cholesterol.total/Chol esterol in HDL [Mass ratio] 6.7 {ratio} Normal <5.0 [facility] Comment on above: Order Comment: Reaso n for Exam Hyperlipidemia Performed By: #### P SAS, TSH3, LIPID, CMP, CBC #### [facility] [address] LDL Cholesterol,Calculated 169 mg/dL High 0-100 [facility] Comment on above: Order Comment: Reaso n for Exam Hyperlipidemia Result Comment: LDL ATP III CLASSIFICATION LDL less than 100 mg/dL Optimal LDL 100-129 mg/dL Near or above optimal LDL 130-159 mg/dL Borderline high LDL 160-189 mg/dL High LDL greater than 189 mg/dL Very high Performed By: #### P SAS, TSH3, LIPID, CMP, CBC #### [facility] [address] [place] [address] [place] Triglyceride w/Reflex 175 mg/dL High 0-149 [facility] Comment on above: Order Comment: Reaso n for Exam Hyperlipidemia Result Comment: TRIG ATP III CLASSIFICATION TRIG less than 150 mg/dL Normal TRIG 150-199 mg/dL Borderline high TRIG 200-500 mg/dL High TRIG greater than 500 mg/dL Very high Standard traceable to the Center for Disease Conrtrol and Prevention (CDC) test method. Performed By: #### P SAS, TSH3, LIPID, CMP, CBC #### [facility] [address] [place] [id number] [facility] VLDL CHOLESTEROL 35 mg/dL Normal [facility] Comment on above: Order Comment: Reaso n for Exam Hyperlipidemia Performed By: #### P SAS, TSH3, LIPID, CMP, CBC #### [facility] [address] Lymphocytes Auto (Bld) [#/Vo l]Ordered By: Griselda Hastings on 10-24-2022 Lymphocytes (Bld) [#/Vol] 2.0 10*3/uL 1.00-4.8 [facility] Lymphocytes/100 WBC Auto (Bl d)Ordered By: Griselda Hastings on 10-24-2022 Lymphocytes/100 WBC (Bld) 39.8 % . [facility] MCH Auto (RBC) [Entitic mass ]Ordered By: Griselda Hastings on 10-24-2022 MCH (RBC) [Entitic mass] 31.5 pg 27.5-35.2 [facility] MCHC Auto (RBC) [Mass/Vol]Or dered By: Griselda Hastings on 10-24-2022 MCHC (RBC) [Mass/Vol] 33.5 g/dL 32.5-35.6 [facility] MCV Auto (RBC) [Entitic vol] Ordered By: Griselda Hastings on 10-24-2022 MCV (RBC) [Entitic vol] 94.0 fL 83.5-101 [facility] Monocytes Auto (Bld) [#/Vol] Ordered By: Griselda Hastings on 10-24-2022 Monocytes (Bld) [#/Vol] 0.3 10*3/uL 0.0-0.8 [facility] Monocytes/100 WBC Auto (Bld) Ordered By: Griselda Hastings on 10-24-2022 Monocytes/100 WBC (Bld) 5.4 % . [facility] Neutrophils Auto (Bld) [#/Vo l]Ordered By: Griselda Hastings on 10-24-2022 Neutrophils (Bld) [#/Vol] 2.6 10*3/uL 1.8-7.7 [facility] Neutrophils/100 WBC Auto (Bl d)Ordered By: Griselda Hastings on 10-24-2022 Neutrophils/100 WBC (Bld) 51.9 % . [facility] No Panel InformationOrdered By: Griselda Hastings on 10-24-2022 Estimated GFR (CKD-EPI) > 60.0 mL/Min [facility] Creatinine Clearance (Chem N/A [facility] Nucleated erythrocytes [Pres ence] in Blood by Automated countOrdered By: Griselda Hastings on 10-24-2022 Nucleated RBC Auto Ql (Bld) 0.1 /100{WBC} 0-0.5 [facility] PSA Screen (Yearly Only)on 0 10-24-2022 PSA Screen (Yearly Only) 0.370 ng/mL Normal 0.000-4.00 0 [facility] Comment on above: Order Comment: Reaso n for Exam Screening for prostate cancer Is patient <50 yrs? Medicare does not pay <50.: N What is the date of the last PSA Screen?: 986370 Is Medicare the insurance?: N Did you verify eligibility (Dx Time) check TestViewGp: YES TO ALL Result Comment: PERF ORMED BY: [facility] [address] [place] [address] PATHOLOGIST LAST SCOURER CARMEN LYNCH M.D. Performed By: #### P SAS, TSH3, LIPID, CMP, CBC #### [facility] [address] Platelet mean volume Auto (B ld) [Entitic vol]Ordered By: Griselda Hastings on 10-24-2022 Platelet mean volume (Bld) [Entitic vol] 9.6 fL 6.6-10.1 [facility] Platelets Auto (Bld) [#/Vol] Ordered By: Griselda Hastings on 10-24-2022 Platelets (Bld) [#/Vol] 247 10*3/uL 150-450 [facility] Potassium [Moles/volume] in Serum or PlasmaOrdered By: Griselda Hastings on 10-24-2022 Potassium [Moles/Vol] 4.0 mmol/L 3.5-5.1 [facility] Prostate specific Ag [Mass/v olume] in Serum or PlasmaOrdered By: Griselda Hastigns on 10-24-2022 Prostate specific Ag [Mass/Vol] 0.370 ng/mL 0.000-4.00 0 [facility] Protein [Mass/volume] in Ser um or PlasmaOrdered By: Griselda Hastings on 10-24-2022 Protein [Mass/Vol] 6.3 g/dL 6.4-8.9 [facility] RBC Auto (Bld) [#/Vol]Ordere d By: Griselda Hastings on 10-24-2022 RBC (Bld) [#/Vol] 4.61 10*6/uL 3.90-5.60 [facility] Serum or plasma albumin/glob ulin mass ratioOrdered By: Griselda Hastings on 10-24-2022 Albumin/Globulin [Mass ratio] 2.0 {ratio} [facility] Serum or plasma anion gap de terminationOrdered By: Griselda Hastings on 10-24-2022 Anion gap [Moles/Vol] 11.7 mmol/L 6.0-15.0 [facility] Serum or plasma high density lipoprotein (HDL) cholesterol measurementOrdered By: Griselda Hastings on 10-24-2022 Cholesterol in HDL [Mass/Vol] 36 mg/dL 29-71 [facility] Comment on above: HDL CHOL ATP-III CLA SSIFICATION Cardiovascular RiskHDL > or equal to 60 mg/dL LOWHDL < 40 mg/dL HIGH Serum or plasma total choles terol/high density lipoprotein (HDL) cholesterol mass ratOrdered By: Griselda Hastings on 10-24-2022 Cholesterol.total/Chol esterol in HDL [Mass ratio] 6.7 {ratio} <5.0 [facility] Sodium [Moles/volume] in Ser um or PlasmaOrdered By: Griselda Hastings on 10-24-2022 Sodium [Moles/Vol] 141 mmol/L 136-145 [facility] Thyroid Stimulating Hormoneo n 10-24-2022 TSH Qn 1.26 m[IU]/L Normal 0.45-5.33 [facility] Comment on above: Order Comment: Reaso n for Exam Hyperlipidemia Result Comment: PERF ORMED BY: [facility] [address] [place] [address] PATHOLOGIST LAST SCOURER CARMEN LYNCH M.D. Performed By: #### P SAS, TSH3, LIPID, CMP, CBC #### [facility] [address] Thyrotropin [Units/volume] i n Serum or PlasmaOrdered By: Griselda Hastings on 10-24-2022 TSH Qn 1.26 m[IU]/L 0.45-5.33 [facility] Triglyceride [Mass/volume] i n Serum or PlasmaOrdered By: Griselda Hastings on 10-24-2022 Triglyceride [Mass/Vol] 175 mg/dL 0-149 [facility] Comment on above: TRIG ATP III CLASSIF ICATIONTRIG less than 150 mg/dL NormalTRIG 150-199 mg/dL Borderline highTRIG 200-500 mg/dL High TRIG greater than 500 mg/dL Very highStandard traceable to the Center for Disease Conrtrol and Prevention (CDC) test method. Urea nitrogen [Mass/volume] in Serum or PlasmaOrdered By: Griselda Hastings on 10-24-2022 Urea nitrogen [Mass/Vol] 15 mg/dL 7-25 [facility] WBC Auto (Bld) [#/Vol]Ordere d By: Griselda Hastings on 10-24-2022 WBC (Bld) [#/Vol] 5.0 10*3/uL 4.1-10.5 [facility] BRIEF OP NOTon 09-28-2022 BRIEF OP NOT HNO ID: [id number] Author: Demond Cat APRN.FILLING HAULER Service: Interventional Radiology Author Type: Nurse Practitioner Type: Brief Op Note Filed: 09/28/2022 3:14 PM Note Text: BRIEF OPERATIVE / PROCEDURE NOTE LOG ID: [id number] SURGERY/PROCEDURE DATE: 09/28/2022 INCISION/PROCEDURE START TIME: 1:58 PM INCISION CLOSE/PROCEDURE END TIME: 2:27 PM SURGEON(S)/PROCEDURALIST( S) AND INSTRUMENT SPECIALIST(S): Surgeon(s) and Role: * Demond Cat APRN.FILLING HAULER - Primary No Additional Staff SURGERY/PROCEDURE(S): LP [...] DATE: September 28, 2022 TIME: 3:10 PM [facility] IR LUMBAR PUNCTURE DIAGon IR LUMBAR PUNCTURE [...] guidance was performed in conjunction with the radiology ct technologist. Plane A, Air Kerma: 20.0 mGy Dose Area Product (DAP): 79756.1 mGy*cm2 Fluoro time: 3:54 min: sec Post-Procedure: [...] procedure was performed by: Demond Cat APRN.CNP Environmental Engineering Professor: HARPER Transcribe Date/Time: Sep 28 2022 3:15P Dictated by : DEMOND CAT CNP This examination was interpreted and the report reviewed and electronically signed by: DEMOND CAT CNP on Sep 28 2022 3:22PM EST [id number] [facility] NURSING PROGon 09-28-2022 NURSING PROG HNO ID: [id number] Author: Court Magana RN Service: Nursing Author [...] (RECOMMENDATION): Primary Care Provider Electronically Signed By: Shellieluisito Magana Normal [facility] MRI BRAIN WO/W IVCONon 09-22 [facility] COVID + FLU Quick Testingon 08-01-2022 SARS-CoV-2 (COVID-19) RNA JER+probe Ql (Unsp spec) Negative [employer] [facility] [employer] Other COVID + FLU Quick Testing neagative [facility] [place] Other COVID + FLU Quick Testing Negative [facility] [place] Other RSVon 08-01-2022 RSV Ag IA Ql (Unsp spec) Positive [facility] [place] Other Cerebrospinal fluid post-valdez trifugation appearance determinationOrdered By: Elvi Cadena on 07-17-2022 Appearance (Spun CSF) Colorless Colorless [facility] Cerebrospinal fluid sample t ube volume measurementOrdered By: Elvi Cadena on 07-17-2022 Specimen volume (CSF) 22.0 mL [facility] Color CSFOrdered By: Elvi Cadena on 07-17-2022 Color (CSF) Colorless Colorless [facility] Manual cerebrospinal fluid e rythrocytes count (number/volume)Ordered By: Elvi Cadena on 07-17-2022 RBC Manual cnt (CSF) [#/Vol] 0 /uL [facility] Comment on above: The reference interv al and other method performance specifications have not been established for this body fluid. The test result must be integrated into the clinical context for interpretation. No Panel InformationOrdered By: Elvi Cadena on 07-17-2022 CSF Appearance Clear Clear [facility] CSF Tube Number Tube number: 1 [facility] Nucleated cells [#/volume] i n Cerebral spinal fluid by Manual countOrdered By: Elvi Cadena on 07-17-2022 Nucleated cells Manual cnt (CSF) [#/Vol] 0.003 10*3/uL 0-5 [facility] Activated partial thrombopla stin time (aPTT) in platelet poor plasma by coagulation aOrdered By: Landy Wong on 04-16-2022 aPTT Coag (PPP) [Time] 32.8 s 25.1-36.5 Fi [facility] Basophils Auto (Bld) [#/Vol] Ordered By: Landy Wong on 04-16-2022 Basophils (Bld) [#/Vol] 0.1 10*3/uL 0.0-0.2 [facility] Basophils/100 WBC Auto (Bld) Ordered By: Landy Wong on 04-16-2022 Basophils/100 WBC (Bld) 1.2 % . [facility] Creatine kinase [Enzymatic a ctivity/volume] in Serum or PlasmaOrdered By: Landy Wong on 04-16-2022 CK [Catalytic activity/Vol] 69 U/L 22-269 [facility] Creatinine and Glomerular fi ltration rate.predicted panel (S/P/Bld)Ordered By: Landy Wong on 04-16-2022 Creatinine [Mass/Vol] 0.97 mg/dL 0.64-1.27 [facility] Eosinophils Auto (Bld) [#/Vo l]Ordered By: Landy Wong on 04-16-2022 Eosinophils (Bld) [#/Vol] 0.1 10*3/uL 0.0-0.45 [facility] Eosinophils/100 WBC Auto (Bl d)Ordered By: Landy Wong on 04-16-2022 Eosinophils/100 WBC (Bld) 1.2 % . [facility] Erythrocyte distribution wid th Auto (RBC) [Ratio]Ordered By: Landy Wong on 04-16-2022 Erythrocyte distribution width (RBC) [Ratio] 14.1 % 12.0-14.8 [facility] Estimated glomerular filtrat ion rate (GFR) non- AmericanOrdered By: Landy Wong on 04-16-2022 GFR/1.73 sq M.predicted among non-blacks MDRD (S/P/Bld) [Vol rate/Area] > 60 mL/Min [facility] Hematocrit Auto (Bld) [Volum e fraction]Ordered By: Landy Wong on 04-16-2022 Hematocrit (Bld) [Volume fraction] 43.2 % 38.8-50.0 [facility] Hemoglobin [Mass/volume] in BloodOrdered By: Landy Wong on 04-16-2022 Hemoglobin (Bld) [Mass/Vol] 14.7 g/dL 13.0-17.0 [facility] Laboratory - Chemistry and C hemistry - challengeOrdered By: Landy Wong on 04-16-2022 Natriuretic peptide B (Bld) [Mass/Vol] 29.0 pg/mL 5-100 [facility] Laboratory - CoagulationOrde red By: Landy Wong on 04-16-2022 PT Coag (PPP) [Time] 12.0 s 9.0-12.9 [facility] - Hematology and Cell countsOrdered By: Landy Wong on 04-16-2022 Nucleated RBC/100 WBC (Bld) [Ratio] 0.1 % 0-0.5 [facility] Leukocytes [#/volume] in Blo od by Automated countOrdered By: Landy Wong on 04-16-2022 WBC (Bld) [#/Vol] 7.7 10*3/uL 4.5-11.0 [facility] Lymphocytes Auto (Bld) [#/Vo l]Ordered By: Landy Wong on 04-16-2022 Lymphocytes (Bld) [#/Vol] 2.3 10*3/uL 1.00-4.8 [facility] Lymphocytes/100 WBC Auto (Bl d)Ordered By: Landy Wong on 04-16-2022 Lymphocytes/100 WBC (Bld) 29.4 % . [facility] MCH Auto (RBC) [Entitic mass ]Ordered By: Landy Wong on 04-16-2022 MCH (RBC) [Entitic mass] 32.0 pg 27.5-35.2 [facility] MCHC Auto (RBC) [Mass/Vol]Or dered By: Landy Wong on 04-16-2022 MCHC (RBC) [Mass/Vol] 34.0 g/dL 32.5-35.6 [facility] MCV Auto (RBC) [Entitic vol] Ordered By: Landy Wong on 04-16-2022 MCV (RBC) [Entitic vol] 94.0 fL 83.5-101 [facility] Monocytes Auto (Bld) [#/Vol] Ordered By: Landy Wong on 04-16-2022 Monocytes (Bld) [#/Vol] 0.6 10*3/uL 0.0-0.8 [facility] Monocytes/100 WBC Auto (Bld) Ordered By: Landy Wong on 04-16-2022 Monocytes/100 WBC (Bld) 7.7 % . [facility] Neutrophils Auto (Bld) [#/Vo l]Ordered By: Landy Wong on 04-16-2022 Neutrophils (Bld) [#/Vol] 4.7 10*3/uL 1.8-7.7 [facility] Neutrophils/100 WBC Auto (Bl d)Ordered By: Landy Wong on 04-16-2022 Neutrophils/100 WBC (Bld) 60.5 % . [facility] No Panel InformationOrdered By: Landy Wong on 04-16-2022 D-Dimer Quantitative (PE/DVT) < 200 ng/mL 0-243 [facility] Comment on above: The reference [...] conditions. Estimated GFR () > 60 mL/Min [facility] Comment on above: GFR estimated refere nce range: According to KDOQI guidelines, <60 ml/min/1.73m2 is sufficient to diagnose a patient with chronic kidney disease. Pharmacy Creatinine Clearance (Chem 79.33 [facility] Platelet mean volume Auto (B ld) [Entitic vol]Ordered By: Landy Wong on 04-16-2022 Platelet mean volume (Bld) [Entitic vol] 9.7 fL 6.6-10.1 [facility] Platelet poor plasma interna tional normalized ratio (INR) by coagulation assay (relatOrdered By: Landy Wong on 04-16-2022 INR Coag (PPP) [Relative time] 1.1 {INR} [facility] Comment on above: INR Therapeutic [...] 4.5 Platelets Auto (Bld) [#/Vol] Ordered By: Landy Wong on 04-16-2022 Platelets (Bld) [#/Vol] 238 10*3/uL 150-450 [facility] [facility] RBC Auto (Bld) [#/Vol]Ordere d By: Landy Wong on 04-16-2022 RBC (Bld) [#/Vol] 4.59 10*6/uL 3.90-5.60 [facility] Serum or plasma anion gap de terminationOrdered By: Landy Wong on 04-16-2022 Anion gap [Moles/Vol] 12.4 mmol/L 6.0-15.0 [facility] Serum or plasma calcium paramjit urement (mass/volume)Ordered By: Landy Wong on 04-16-2022 Calcium [Mass/Vol] 9.0 mg/dL 8.2-10.2 [facility] Serum or plasma chloride robby surement (moles/volume)Ordered By: Landy Wong on 04-16-2022 Chloride [Moles/Vol] 103 mmol/L 95-114 [facility] Serum or plasma creatine kin ase MB (CKMB)/total creatine kinase (CK) ratio by calculaOrdered By: Landy Wong on 04-16-2022 CK.MB Calc [Catalytic fraction] 2.0 % 0.00-2.50 [facility] Serum or plasma creatine kin ase MB measurement (mass/volume)Ordered By: Landy Wong on 04-16-2022 CK.MB [Mass/Vol] 1.4 ng/mL 0.6-6.3 [facility] Serum or plasma glucose paramjit urement (mass/volume)Ordered By: Landy Wong on 04-16-2022 Glucose [Mass/Vol] 88 mg/dL 70-100 [facility] Comment on above: ADA recommended refe rence rangeRandom Glucose Reference Range is dependent on time and content of last meal. Glucose of more than 200 mg/dL in a nonstressed, ambulatory subject supports the diagnosis of Diabetes Mellitus. Serum or plasma potassium me asurement (moles/volume)Ordered By: Landy Wong on 04-16-2022 Potassium [Moles/Vol] 4.3 mmol/L 3.5-5.1 [facility] Serum or plasma sodium measu rement (moles/volume)Ordered By: Landy Wong on 04-16-2022 Sodium [Moles/Vol] 135 mmol/L 136-146 [facility] Serum or plasma total carbon dioxide measurement (moles/volume)Ordered By: Landy Wong on 04-16-2022 CO2 [Moles/Vol] 23.9 mmol/L 22.0-30.0 [facility] Serum or plasma urea nitroge n measurement (mass/volume)Ordered By: Landy Wong on 04-16-2022 Urea nitrogen [Mass/Vol] 12 mg/dL 9-23 [facility] Troponin I.cardiac [Mass/vol ume] in Serum or Plasma by High sensitivity methodOrdered By: Landy Wong on 04-16-2022 Troponin I.cardiac High sensitivity method [Mass/Vol] 5 pg/mL 0-20 [facility] COVID Quick Testingon 2021 Result Negative [facility] [place] Other Quick Fluon 03-16-2022 FLUAV Ab CF (S) [Titer] Negative [facility] [place] Other FLUBV Ab CF (S) [Titer] Negative [facility] [place] Other MRI Brain w/o + w/on 022 [...] by Jillian Morales on 01/18/2022 1413 Normal [facility] Cell Count + Differential, C on 11-07-2021 WBC (Bld) [#/Vol] 0.006 10*3/uL above high threshold 0 - 5 [facility] [employer] Work Phone: [phone] Cell Count + Differential, CSF 70 1 [facility] [employer] Work Phone: [phone] Cell Count + Differential, CSF 10 % [facility] [employer] Work Phone: [phone] Cell Count + Differential, CSF 60 % [facility] [employer] Work Phone: [phone] Cell Count + [...] Phone: [phone] Albumin [Mass/Vol] 4578 mg/dL [phone] [facility] Work Phone: [phone] IgG (CSF) [Mass/Vol] 2.2 mg/dL 0.0-6.0 [facility] Work Phone: [phone] IgG [Mass/Vol] 496 mg/dL below low threshold [phone] [facility] Work Phone: [phone] Comment on above: REFERENCE INTERVAL: Immunoglobulin GAccess complete set of age- and/or gender-specific reference intervals for this test in the [facility] Laboratory Test Directory (m2fx). IgG clearance/Albumin clearance (S+CSF) [Ratio] 0.56 {ratio} [...] sclerosis will have a negative result.Performed By: [employer] [place] [address] [id number] Director: Paula Middleton MD Albumin (CSF) [Mass/Vol] Canceled [facility] [employer] Work Phone: [phone] Albumin [Mass/Vol] Canceled [facility] [employer] Work Phone: [phone] Glucose (CSF) [Mass/Vol] 56 mg/dL 40 - 70 [facility] Work Phone: [phone] IgG (CSF) [Mass/Vol] Canceled [facility] Work Phone: [phone] IgG [Mass/Vol] Canceled [facility] Work Phone: [phone] IgG clearance/Albumin clearance (S+CSF) [Ratio] Canceled [facility] Work Phone: [phone] IgG synthesis rate Calc (S+CSF) [Mass/Time] Canceled [facility] Work Phone: [phone] IgG/Albumin (CSF) [Mass ratio] Canceled [facility] Work Phone: [phone] Oligoclonal bands Elph (CSF) [Interp] Canceled [facility] Work Phone: [phone] Oligoclonal bands Elph Curtis (CSF) [Interp] Canceled [facility] Work Phone: Protein (CSF) [Mass/Vol] 66 mg/dL above high threshold 15 - 45 [facility] Work Phone: No Panel Informationon 11-07 0 {Bands} 0-1 [facility] Work Phone: [facility] Work Phone: [phone] Canceled [facility] Work Phone: Path Review, CSFon 2 Path Review, CSF RHAILEE [facility] Work Phone: Comment on above: By her/his signature above, the Pathologist listed as making the final interpretation certifies that she/he has personally reviewed this case. HEMORRHAGIC SPECIMEN, NO MALIGNANT CELLS IDENTIFIED. 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 In [...] He saw Dr. Ba a neurologist in [facility]. He describes his vision as seeing [...] MG Oral Tablet Vitals Vital Signs Recorded: [id number] 09:38AM Mmotqdknwwy39.2 F Heart Rate63 Yvfjgmkccaq29 Urngvhvk258 Kcttmoijx54 Blood Pressure Cuff SizeAdult Height5 ft 7.13 in Jzfwew285 lb 6 oz BMI Dpodpkffly46.05 kg/m2 BSA Calculated1.91 Tobacco Usea) Yes Fall Screeninga) No falls within the last year O2 Hmcyuralvh74 Pain Scale7 Physical Exam Constitutional - General appearance: No acute distress, well de (more content not included)... 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 In [...] He saw Dr. Ba a neurologist in [facility]. He describes his vision as seeing [...] MG Oral Tablet Vitals Vital Signs Recorded: [id number] 09:38AM Cisdngnbroq26.2 F Heart Rate63 Jaxevmppmry46 Xisxqdad685 Twljaassf96 Blood Pressure Cuff SizeAdult Height5 ft 7.13 in Kjqxny374 lb 6 oz BMI Yaigutmcmh19.05 kg/m2 BSA Calculated1.91 Tobacco Usea) Yes Fall Screeninga) No falls within the last year O2 Tludoszyqg40 Pain Scale7 Ph (more content not included)... Normal [employer] COVID + FLU Quick Testingon 06-30-2021 SARS-CoV-2 (COVID-19) RNA JER+probe Ql (Unsp spec) Negative [place] Other COVID + FLU Quick Testing Negative [place] Other COVID Quick Testingon 2020 Result Negative [place] Other Basophils Auto (Bld) [#/Vol] on 09-20-2020 Basophils (Bld) [#/Vol] 0.0 10*3/uL 0.0-0.2 [facility] Basophils/100 WBC Auto (Bld) on 09-20-2020 Basophils/100 WBC (Bld) 0.6 % [facility] Blood hemoglobin measurement (mass/volume)on 09-20-2020 Hemoglobin (Bld) [Mass/Vol] 14.4 g/dL 13.0-17.0 [facility] Blood leukocytes automated c ount (number/volume)on 09-20-2020 WBC (Bld) [#/Vol] 7.4 10*3/uL 4.5-11.0 [facility] Eosinophils Auto (Bld) [#/Vo l]on 09-20-2020 Eosinophils (Bld) [#/Vol] 0.1 10*3/uL 0.0-0.45 [facility] Eosinophils/100 WBC Auto (Bl d)on 09-20-2020 Eosinophils/100 WBC (Bld) 0.9 % [facility] Erythrocyte distribution wid th Auto (RBC) [Ratio]on 09-20-2020 Erythrocyte distribution width (RBC) [Ratio] 14.6 % 12.0-14.8 [facility] Hematocrit Auto (Bld) [Volum e fraction]on 09-20-2020 Hematocrit (Bld) [Volume fraction] 41.7 % 38.8-50.0 [facility] Lymphocytes Auto (Bld) [#/Vo l]on 09-20-2020 Lymphocytes (Bld) [#/Vol] 1.6 10*3/uL 1.00-4.8 [facility] Lymphocytes/100 WBC Auto (Bl d)on 09-20-2020 Lymphocytes/100 WBC (Bld) 21.3 % [facility] MCH Auto (RBC) [Entitic mass ]on 09-20-2020 MCH (RBC) [Entitic mass] 32.4 pg 27.5-35.2 [facility] MCHC Auto (RBC) [Mass/Vol]on 09-20-2020 MCHC (RBC) [Mass/Vol] 34.5 g/dL 32.5-35.6 [facility] MCV Auto (RBC) [Entitic vol] on 09-20-2020 MCV (RBC) [Entitic vol] 93.9 fL 83.5-101 [facility] Monocytes Auto (Bld) [#/Vol] on 04-05-2021 Monocytes (Bld) [#/Vol] 0.6 10*3/uL 0.0-0.8 [facility] Monocytes/100 WBC Auto (Bld) on 09-20-2020 Monocytes/100 WBC (Bld) 8.6 % [facility] Neutrophils Auto (Bld) [#/Vo l]on 09-20-2020 Neutrophils (Bld) [#/Vol] 5.1 10*3/uL 1.8-7.7 [facility] Neutrophils/100 WBC Auto (Bl d)on 09-20-2020 Neutrophils/100 WBC (Bld) 68.6 % [facility] Otheron 09-20-2020 Nucleated RBC/100 WBC (Bld) [Ratio] 0.0 % 0-0.5 [facility] Platelet mean volume Auto (B ld) [Entitic vol]on 09-20-2020 Platelet mean volume (Bld) [Entitic vol] 9.3 fL 6.6-10.1 [facility] Platelets Auto (Bld) [#/Vol] on 09-20-2020 Platelets (Bld) [#/Vol] 182 10*3/uL 150-450 [facility] RBC Auto (Bld) [#/Vol]on RBC (Bld) [#/Vol] 4.44 10*6/uL 3.90-5.60 [facility] Body fluid albumin measureme nt (mass/volume)on 09-13-2020 Albumin (Body fld) [Mass/Vol] 4.3 g/dL 3.2-5.5 [facility] Cholesterol [Mass/volume] in Serum or Plasmaon 09-13-2020 Cholesterol [Mass/Vol] 219 mg/dL 140-200 [facility] Comment on above: Chol less than 200 m g/dl low riskChol 201-239 mg/dl borderline riskChol 240 mg/dl and greater high risk Cholesterol in LDL Calc [Mas s/Vol]on 09-13-2020 Cholesterol in LDL [Mass/Vol] 149 mg/dL 0-100 [facility] Comment on above: LDL ATP III CLASSIFI CATIONLDL less than 100 mg/dL OptimalLDL 100-129 mg/dL Near or above optimalLDL 130-159 mg/dL Borderline highLDL 160-189 mg/dL HighLDL greater than 189 mg/dL Very high Cholesterol in VLDL Calc [Ma ss/Vol]on 09-13-2020 Cholesterol in VLDL [Mass/Vol] 28 mg/dL [facility] Creatinine and Glomerular fi ltration rate.predicted panel (S/P/Bld)on 09-13-2020 Creatinine [Mass/Vol] 0.89 mg/dL 0.64-1.27 [facility] GFR/1.73 sq M.predicted roverto g non-blacks MDRD (S/P/Bld) [Vol rate/Area]on 09-13-2020 GFR/1.73 sq M predicted among non-blacks MDRD (S/P/Bld) [Vol rate/Area] > 60 mL/Min [facility] Globulin Calc (S) [Mass/Vol] on 09-13-2020 Globulin (S) [Mass/Vol] 2.0 g/dL [facility] No Panel Informationon 09-13 Estimated GFR () > 60 mL/Min [facility] Comment on above: GFR estimated refere nce range: According to KDOQI guidelines, <60 ml/min/1.73m2 is sufficient to diagnose a patient with chronic kidney disease. Otheron 09-13-2020 GFR/1.73 sq M.predicted MDRD (S/P/Bld) [Vol rate/Area] > 60 mL/Min [facility] Comment on above: GFR estimated refere nce range: According to KDOQI guidelines, <60 ml/min/1.73m2 is sufficient to diagnose a patient with chronic kidney disease. Pharmacy Creatinine Clearance (Chem N/A [facility] Prostate Specific Antigen Screen 0.480 ng/mL 0.000-4.00 0 [facility] Protein [Mass/volume] in Ser um or Plasmaon 09-13-2020 Protein [Mass/Vol] 6.3 g/dL 6.1-7.9 [facility] SARS-CoV-2 (COVID-19) IgG Ab [Presence] in Serum or Plasma by Immunoassayon 09-13-2020 SARS-CoV-2 (COVID-19) IgG Ab [Presence] in Serum or Plasma by Immunoassay Positive Negative [facility] Comment on above: Results suggest rece nt or prior infection with SARS-CoV-2.Correlation with epidemiologic risk factors and otherclinical and laboratory findings is recommended. Serologicresults should not be used as the sole basis to diagnose orexclude recent SARS-CoV-2 infection. False positive resultsinfrequently occur due to prior infection with other humanCoronaviruses.This assay was performed using the [employer](R)SARS-CoV-2 S1/S2 IgG assay.This assay detects antibodies against SARS-CoV-2 spikeprotein including the receptor binding domain (RBD).Performed at: [facility] [id number] Director: Florencio Wu PhD, Phone: [phone] SARS-CoV-2 (COVID-19) IgG IA Ql Positive Negative [facility] Comment on above: Results suggest rece nt or prior infection with SARS-CoV-2.Correlation with epidemiologic risk factors and otherclinical and laboratory findings is recommended. Serologicresults should not be used as the sole basis to diagnose orexclude recent SARS-CoV-2 infection. False positive resultsinfrequently occur due to prior infection with other humanCoronaviruses.This assay was performed using the [employer](R)SARS-CoV-2 S1/S2 IgG assay.This assay detects antibodies against SARS-CoV-2 spikeprotein including the receptor binding domain (RBD).Performed at: [facility] [id number] Director: Florencio Wu PhD, Phone: [phone] Serum or plasma alanine mclaughlin otransferase measurement without P-5'-P (enzymatic activion 09-13-2020 ALT No additional P-5'-P [Catalytic activity/Vol] 19 U/L 10-60 [facility] Serum or plasma albumin/glob ulin mass ratioon 09-13-2020 Albumin/Globulin [Mass ratio] 2.2 {ratio} [facility] Serum or plasma alkaline fuentes sphatase measurement (enzymatic activity/volume)on 09-13-2020 ALP [Catalytic activity/Vol] 53 U/L 32-92 [facility] Serum or plasma aspartate am inotransferase measurement (enzymatic activity/volume)on 09-13-2020 AST [Catalytic activity/Vol] 22 U/L 10-42 [facility] Serum or plasma calcium paramjit urement (mass/volume)on 09-13-2020 Calcium [Mass/Vol] 9.1 mg/dL 8.2-10.2 [facility] Serum or plasma chloride robby surement (moles/volume)on 09-13-2020 Chloride [Moles/Vol] 105 mmol/L 95-114 [facility] Serum or plasma glucose paramjit [...] Cholesterol in HDL [Mass/Vol] 41 mg/dL - [facility] Comment on above: HDL CHOL ATP-III CLA SSIFICATION Cardiovascular RiskHDL > or equal to 60 mg/dL LOWHDL < 40 mg/dL HIGH Serum or plasma potassium me asurement (moles/volume)on 09-13-2020 Potassium [Moles/Vol] 4.2 mmol/L 3.5-5.1 [facility] Serum or plasma sodium measu rement (moles/volume)on 09-13-2020 Sodium [Moles/Vol] 135 mmol/L 136-146 [facility] Serum or plasma thyroid stim ulating hormone (TSH) measurement by high sensitivity meton 09-13-2020 TSH Qn 1.66 u[iU]/mL 0.45-5.33 [facility] Serum or plasma total biliru bin measurement (mass/volume)on 09-13-2020 Bilirubin [Mass/Vol] 0.9 mg/dL 0.3-1.2 [facility] Serum or plasma total carbon dioxide measurement (moles/volume)on 09-13-2020 CO2 [Moles/Vol] 22.5 mmol/L 22.0-30.0 [facility] Serum or plasma total choles terol/high density lipoprotein (HDL) cholesterol mass gia 09-13-2020 Cholesterol.total/Chol esterol in HDL [Mass ratio] 5.3 {ratio} [facility] Serum or plasma urea nitroge n measurement (mass/volume)on 09-13-2020 Urea nitrogen [Mass/Vol] 12 mg/dL 9-23 [facility] TSH DL <= 0.005 mIU/L Qnon 0 09-13-2020 TSH Qn 1.66 m[IU]/L 0.45-5.33 [facility] Triglyceride [Mass/volume] i n Serum or Plasmaon 09-13-2020 Triglyceride [Mass/Vol] 144 mg/dL 35-149 [facility] Comment on above: TRIG ATP III [...] eye. Coleen Grajeda M.D. aek Dictated: 04/14/2019 #[id number] Typed 04/14/2019 #[id number] cc: Coleen Grajeda M.D. [facility] Comment on above: Result Comment: Elec tronically [...] and inferior fornices of the eye. A TDXan manometer was set on the eye at [...] condition. Coleen Grajeda M.D. gls Dictated: 04/14/2019 #[id number] Typed: 04/15/2019 #[id number] cc: Coleen Grajeda M.D. [facility] Comment on above: Result Comment: Elec tronically Signed By: Coleen Grjaeda MD.br\Date and Time Signed: 04/18/19 09:54 EDT Coding Summary.on 04-15-2019 Coding Summary. 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 Name: JOVANI MELENDEZ D.O.B./Sex: 1960 Male Med Rec #: [id number] Physician: Coleen Grajeda MD Financial #: [id number] Pt. Type: A Room/Bed: [place] [address] Admit/Disch: 04/14/19 12:59:00 - 04/14/19 16:00:00 Institution: [...] Performed Surgeon - Primary Scrub - Primary C Consultant - Primary Time In 04/14/19 14:55:00 04/14/19 [...] VERNON, Pauly GOODEN, RN, Tierra Role Performed C Consultant - Primary C Consultant - Relief Time In 04/14/19 14:55:00 04/14/19 [...] Unable to Visualize, Outcomes Met? Yes Warm, Alpha, Dry Last Modified By: Johnathon Karimi RN [...] Knees Press Points Checked Yes By Johnathon Kraimi RN Outcomes Met? Yes Last Modified By: [...] RN Patient Status Stable Skin. 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 Clinical Discharge Instructions PERSON INFORMATION Name: JOVANI MELENDEZ PHYSICIANS Admitting Physician: Coleen Grajeda MD Attending Physician: Coleen Grajeda MD PCP: JILLIAN BARONE DO Discharge Diagnosis: Cataract Comment: PATIENT EDUCATION INFORMATION Instructions: Medication Leaflets: Follow up: With: Address: When: Coleen Grajeda [address], [place] [id number] Business (1) Comments: Call physician if symptoms worsen Keep scheduled appointment MEDICATION LIST Comment: Normal [facility] Main OR PACU II Recordon Main OR PACU II Record PACU Phase II Doc ument Type FT Summary Primary Physician: Coleen Grajeda MD Finalized Date/Time: 04/14/19 17:54:42 Pt. Name: JOVANI MELENDEZ Fatimah /Sex: 1960 Male Med Rec #: [id number] Physician: Coleen Grajeda MD Financial #: [id number] Pt. Type: A Room/Bed: [place] [address] Admit/Disch: 04/14/19 12:59:23 - Institution: Case Times [...] II Outcomes Met? Yes Last Modified By: Victor Manuel VERNON, Lizeth Driver 04/14/19 17:54:41 Post-Care Text: The patient demonstrates [...] By: Lizeth Rush RN 04/14/19 17:54 Normal [facility] Main OR Preoperative Recordo n 04-14-2019 Main OR Preoperative Record PreOp Document Type FT Summary Primary Physician: Coleen Grajeda MD Finalized Date/Time: 04/14/19 15:14:03 Pt. Name: JOVANI MELENDEZ Fatimah Roland/Sex: 1960 Male Med Rec #: [id number] Physician: Coleen Grajeda MD Financial #: [id number] Pt. Type: A Room/Bed: [place] [address] Admit/Disch: 04/14/19 12:59:23 - Institution: Case Times [...] By: Johnathon Karimi RN 04/14/19 15:14 Normal [facility] Patient Education - Texton 1 Patient Education - Text Normal [facility] Vital Signs Date Time Vital Sign Value Performing Clinician Facility 01-31-2024 10:24-0400 Body height 172.72 cm [facility] 01-31-2024 10:24-0400 Body mass index (BMI) [Ratio] 27.3 kg/m2 [facility] 01-31-2024 10:24-0400 Body weight 81.64 kg [facility] 01-31-2024 10:24-0400 Diastolic blood pressure 70 mm[Hg] [facility] 01-31-2024 10:24-0400 Heart rate 75 /min [facility] 01-31-2024 10:24-0400 Respiratory rate 18 /min [facility] 01-31-2024 10:24-0400 SaO2% (BldA) [Mass fraction] 98 % [facility] 01-31-2024 10:24-0400 Systolic blood pressure 122 mm[Hg] [facility] 12-03-2023 10:51-0400 Body height 172.72 cm DO Griselda Kuns Work Phone: [facility] 12-03-2023 10:51-0400 Body mass index (BMI) [Ratio] 26.1 kg/m2 DO Griselda Kuns Work Phone: [facility] 12-03-2023 10:51-0400 Body weight 78.01 kg DO Griselda Kuns Work Phone: [facility] 12-03-2023 10:51-0400 Diastolic blood pressure 82 mm[Hg] DO Griselda Kuns Work Phone: [facility] 12-03-2023 10:51-0400 Heart rate 97 /min DO Griselda Kuns Work Phone: [facility] 12-03-2023 10:51-0400 Respiratory rate 18 /min DO Griselda Kuns Work Phone: [facility] 12-03-2023 10:51-0400 SaO2% (BldA) [Mass fraction] 96 % DO Griselda Kuns Work Phone: [facility] 12-03-2023 10:51-0400 Systolic blood pressure 110 mm[Hg] DO Griselda Kuns Work Phone: [facility] 11-02-2023 09:49-0400 Body height 170.6 cm Memo Cole MD Work Phone: [facility] 11-02-2023 09:49-0400 Body mass index (BMI) [Ratio] 27.38 kg/m2 Memo Cole MD Work Phone: [facility] 11-02-2023 09:49-0400 Body temperature 97.7 [degF] Memo Cole MD Work Phone: [facility] 11-02-2023 09:49-0400 Body weight 79.7 kg Memo Cole MD Work Phone: [facility] 11-02-2023 09:49-0400 Diastolic blood pressure 76 mm[Hg] Memo Cole MD Work Phone: [facility] 11-02-2023 09:49-0400 Heart rate 72 /min Memo Cole MD Work Phone: [facility] 11-02-2023 09:49-0400 Respiratory rate 16 /min Memo Cole MD Work Phone: [facility] 11-02-2023 09:49-0400 SaO2% (BldA) [Mass fraction] 99 % Memo Cole MD Work Phone: [facility] 11-02-2023 09:49-0400 Systolic blood pressure 130 mm[Hg] Memo Cole MD Work Phone: [facility] 10-29-2023 10:32-0400 Body height 172.72 cm DO Griselda Kuns Work Phone: [facility] 10-29-2023 10:32-0400 Body mass index (BMI) [Ratio] 26.6 kg/m2 DO Griselda Kuns Work Phone: [facility] 10-29-2023 10:32-0400 Body weight 79.37 kg DO Griselda Kuns Work Phone: [facility] 10-29-2023 10:32-0400 Diastolic blood pressure 82 mm[Hg] DO Griselda Kuns Work Phone: [facility] 10-29-2023 10:32-0400 Heart rate 71 /min DO Griselda Kuns Work Phone: [facility] [facility] 10-29-2023 10:32-0400 Respiratory rate 16 /min DO Griselda Kuns Work Phone: [facility] 10-29-2023 10:32-0400 SaO2% (BldA) [Mass fraction] 98 % DO Griselda Kuns Work Phone: [facility] 10-29-2023 10:32-0400 Systolic blood pressure 128 mm[Hg] DO Griselda Kuns Work Phone: [facility] 10-18-2023 09:02-0400 Diastolic blood pressure 68 mm[Hg] DO Griselda Kuns Work Phone: [facility] 10-18-2023 09:02-0400 Systolic blood pressure 132 mm[Hg] DO Griselda Kuns Work Phone: [facility] 10-18-2023 08:58-0400 Body height 172.72 cm DO Griselda Kuns Work Phone: [facility] 10-18-2023 08:58-0400 Body mass index (BMI) [Ratio] 26.6 kg/m2 DO Griselda Kuns Work Phone: [facility] 10-18-2023 08:58-0400 Body weight 79.37 kg DO Griselda Kuns Work Phone: [facility] 10-18-2023 08:58-0400 Heart rate 57 /min DO Griselda Kuns Work Phone: [facility] 10-18-2023 08:58-0400 Respiratory rate 18 /min DO Griselda Kuns Work Phone: [facility] 10-18-2023 08:58-0400 SaO2% (BldA) [Mass fraction] 98 % DO Griselda Kuns Work Phone: [facility] 10-05-2023 09:37-0400 Body height 172.2 cm Ignacia Jack MD Work Phone: [facility] 10-05-2023 09:37-0400 Body mass index (BMI) [Ratio] 26.25 kg/m2 Ignacia Jack MD Work Phone: [facility] 10-05-2023 09:37-0400 Body temperature 97.3 [degF] Ignacia Jack MD Work Phone: [facility] 10-05-2023 09:37-0400 Body weight 77.84 kg Ignacia Jack MD Work Phone: [facility] 10-05-2023 09:37-0400 Diastolic blood pressure 68 mm[Hg] Ignacia Jack MD Work Phone: [facility] 10-05-2023 09:37-0400 Heart rate 81 /min Ignacia Jack MD Work Phone: [facility] 10-05-2023 09:37-0400 Respiratory rate 16 /min Ignacia Jack MD Work Phone: [facility] 10-05-2023 09:37-0400 SaO2% (BldA) [Mass fraction] 99 % Ignacia Jack MD Work Phone: [facility] 10-05-2023 09:37-0400 Systolic blood pressure 116 mm[Hg] Ignacia Jack MD Work Phone: [facility] 09-05-2023 13:44-0400 Diastolic blood pressure 99 mm[Hg] DO Griselda Kuns Work Phone: [facility] 09-05-2023 13:44-0400 Systolic blood pressure 160 mm[Hg] DO Griselda Kuns Work Phone: [facility] 09-05-2023 13:41-0400 Body height 172.72 cm DO Griselda Kuns Work Phone: [facility] 09-05-2023 13:41-0400 Body mass index (BMI) [Ratio] 27.8 kg/m2 DO Griselda Kuns Work Phone: [facility] 09-05-2023 13:41-0400 Body weight 83 kg DO Griselda Kuns Work Phone: [facility] 09-05-2023 13:41-0400 Heart rate 66 /min DO Griselda Kuns Work Phone: [facility] 09-05-2023 13:41-0400 Respiratory rate 18 /min DO Griselda Kuns Work Phone: [facility] 09-05-2023 13:41-0400 SaO2% (BldA) [Mass fraction] 99 % DO Griselda Kuns Work Phone: [facility] 09-05-2023 11:58-0400 Body height 172.72 cm DO Griselda Kuns Work Phone: [facility] 09-05-2023 11:58-0400 Body mass index (BMI) [Ratio] 27.3 kg/m2 DO Griselda Kuns Work Phone: [facility] 09-05-2023 11:58-0400 Body temperature 97.8 [degF] DO Griselda Kuns Work Phone: [facility] 09-05-2023 11:58-0400 Body weight 81.64 kg DO Griselda Kuns Work Phone: [facility] 09-05-2023 11:58-0400 Diastolic blood pressure 92 mm[Hg] DO Griselda Kuns Work Phone: [facility] 09-05-2023 11:58-0400 Heart rate 71 /min DO Griselda Kuns Work Phone: [facility] 09-05-2023 11:58-0400 SaO2% (BldA) [Mass fraction] 96 % DO Griselda Kuns Work Phone: [facility] 09-05-2023 11:58-0400 Systolic blood pressure 160 mm[Hg] DO Griselda Kuns Work Phone: [facility] 08-15-2023 15:41-0500 Body height 172.72 cm DO Griselda Kuns Work Phone: [facility] 08-15-2023 15:41-0500 Body mass index (BMI) [Ratio] 28.1 kg/m2 DO Griselda Kuns Work Phone: [facility] 08-15-2023 15:41-0500 Body weight 84.08 kg DO Griselda Kuns Work Phone: [facility] 08-15-2023 15:41-0500 Diastolic blood pressure 72 mm[Hg] DO Griselda Kuns Work Phone: [facility] 08-15-2023 15:41-0500 Heart rate 62 /min DO Griselda Kuns Work Phone: [facility] 08-15-2023 15:41-0500 Respiratory rate 18 /min DO Griselda Kuns Work Phone: [facility] 08-15-2023 15:41-0500 SaO2% (BldA) [Mass fraction] 99 % DO Griselda Kuns Work Phone: [facility] 08-15-2023 15:41-0500 Systolic blood pressure 128 mm[Hg] DO Griselda Kuns Work Phone: [facility] 08-02-2023 13:11-0500 Body height 172.72 cm DO Griselda Kuns Work Phone: [facility] 08-02-2023 13:11-0500 Body mass index (BMI) [Ratio] 27.9 kg/m2 DO Griselda Kuns Work Phone: [facility] 08-02-2023 13:11-0500 Body weight 83.46 kg DO Griselda Kuns Work Phone: [facility] 08-02-2023 13:11-0500 Diastolic blood pressure 70 mm[Hg] DO Griselda Kuns Work Phone: [facility] 08-02-2023 13:11-0500 Heart rate 68 /min DO Griselda Kuns Work Phone: [facility] 08-02-2023 13:11-0500 Respiratory rate 16 /min DO Griselda Kuns Work Phone: [facility] 08-02-2023 13:11-0500 SaO2% (BldA) [Mass fraction] 97 % DO Griselda Kuns Work Phone: [facility] 08-02-2023 13:11-0500 Systolic blood pressure 130 mm[Hg] DO Griselda Kuns Work Phone: [facility] 07-02-2023 09:30-0500 Body height 172.72 cm Griselda Kuns Other [facility] 07-02-2023 09:30-0500 Body mass index (BMI) [Ratio] 28.28 kg/m2 Griselda Kuns Other [employer] [facility] [employer] Other 07-02-2023 09:30-0500 Body weight 84.37 kg Griselda Kuns Other [employer] [facility] [employer] [facility] [employer] [facility] Other 07-02-2023 09:30-0500 Body weight 84.36 kg DO Griselda Kuns Work Phone: [facility] 07-02-2023 09:30-0500 Diastolic blood pressure 92 mm[Hg] Griselda Kuns Other [facility] 07-02-2023 09:30-0500 Respiratory rate 16 /min Griselda Kuns Other [facility] [employer] [place] Other 07-02-2023 09:30-0500 SaO2% (BldA) [Mass fraction] 97 % Griselda Kuns Other [employer] [facility] [employer] Other 07-02-2023 09:30-0500 Systolic blood pressure 160 mm[Hg] Griselda Kuns Other [facility] 05-31-2023 13:45-0500 Body height 172.72 cm Griselda Kuns Other [facility] 05-31-2023 13:45-0500 Body mass index (BMI) [Ratio] 27.37 kg/m2 Griselda Kuns Other [facility] [place] Other 05-31-2023 13:45-0500 Body weight 81.65 kg Griselda Kuns Other [facility] [place] Other 05-31-2023 13:45-0500 Body weight 81.64 kg DO Griselda Kuns Work Phone: [facility] 05-31-2023 13:45-0500 Diastolic blood pressure 80 mm[Hg] Griselda Kuns Other [facility] 05-31-2023 13:45-0500 Respiratory rate 18 /min Griselda Kuns Other [facility] [employer] [place] Other 05-31-2023 13:45-0500 SaO2% (BldA) [Mass fraction] 98 % Griselda Hastings Other [facility] [place] Other 05-31-2023 13:45-0500 Systolic blood pressure 120 mm[Hg] Griseldakeith Hastings Other [facility] 05-30-2023 11:15-0500 Body height 172.72 cm Ruddy Wes Other [facility] 05-30-2023 11:15-0500 Body mass index (BMI) [Ratio] 27.52 kg/m2 Ruddy Wes Other [email or web address] [email or web address] Other 05-30-2023 11:15-0500 Body temperature 97.8 [degF] Ruddy Harvey Other [facility] [employer] Other 05-30-2023 11:15-0500 Body weight 82.1 kg Ruddy Wes Other [facility] 05-30-2023 11:15-0500 SaO2% (BldA) [Mass fraction] 98 % Ruddy Wes Other [facility] [place] Other 05-15-2023 13:20-0500 Body height 172.72 cm Lilliam Cason Other [facility] 05-15-2023 13:20-0500 Body mass index (BMI) [Ratio] 27.52 kg/m2 Lilliam Cason Other [facility] [employer] Other 05-15-2023 13:20-0500 Body weight 82.1 kg Lilliam Cason Other [facility] 05-15-2023 13:20-0500 Diastolic blood pressure 84 mm[Hg] Lilliam Cason Other [facility] 05-15-2023 13:20-0500 Respiratory rate 18 /min Lilliam Cason Other [facility] [employer] Other 05-15-2023 13:20-0500 SaO2% (BldA) [Mass fraction] 98 % Lilliam Cason Other [employer] [facility] [employer] Other 05-15-2023 13:20-0500 Systolic blood pressure 142 mm[Hg] Lilliam Cason Other [facility] 05-07-2023 13:16-0500 Diastolic blood pressure 78 mm[Hg] DO Griselda [employer] Work Phone: [facility] 05-07-2023 13:16-0500 Heart rate 75 /min DO Griselda [employer] Work Phone: [facility] 05-07-2023 13:16-0500 Respiratory rate 16 /min DO Griselda [employer] Work Phone: [facility] 05-07-2023 13:16-0500 SaO2% (BldA) [Mass fraction] 96 % DO Griselda Kuns Work Phone: [facility] 05-07-2023 13:16-0500 Systolic blood pressure 135 mm[Hg] DO Griselda [employer] Work Phone: [facility] 05-07-2023 10:30-0500 Inhaled oxygen flow rate 3 L/min DO Griselda [employer] Work Phone: [facility] 05-07-2023 08:29-0500 Body height 172.72 cm DO Griselda Kuns Work Phone: [facility] 05-07-2023 08:29-0500 Body weight 79.37 kg DO Griselda Kuns Work Phone: [facility] 05-03-2023 09:15-0500 Body height 172.72 cm Ruddy Wes Other [facility] [place] Other 05-03-2023 09:15-0500 Body mass index (BMI) [Ratio] 27.06 kg/m2 Ruddy Harvey Other [facility] [place] Other 05-03-2023 09:15-0500 Body temperature 97.8 [degF] Ruddy Wes Other [facility] [place] Other 05-03-2023 09:15-0500 Body weight 80.74 kg Ruddy Wes Other [facility] [place] Other 05-03-2023 09:15-0500 Diastolic blood pressure 78 mm[Hg] Ruddy Harvey Other [facility] [place] Other 05-03-2023 09:15-0500 SaO2% (BldA) [Mass fraction] 97 % Ruddy Harvey Other [facility] [place] Other 05-03-2023 09:15-0500 Systolic blood pressure 146 mm[Hg] Ruddy Harvey Other [facility] [place] Other 05-01-2023 10:30-0500 Body height 172.72 cm Griselda Hastings Other [facility] [place] Other 05-01-2023 10:30-0500 Body mass index (BMI) [Ratio] 27.06 kg/m2 Griselda Andreas Other [facility] [place] Other 05-01-2023 10:30-0500 Body weight 80.74 kg Griseldakeith Mendezs Other [facility] [place] Other 05-01-2023 10:30-0500 Diastolic blood pressure 80 mm[Hg] Griselda Kuns Other [facility] [place] Other 05-01-2023 10:30-0500 Respiratory rate 18 /min Griseldakeith Mendezs Other [facility] [place] Other 05-01-2023 10:30-0500 SaO2% (BldA) [Mass fraction] 96 % Griselda Andreas Other [facility] [place] Other 05-01-2023 10:30-0500 Systolic blood pressure 144 mm[Hg] Griselda Kuns Other [facility] [place] Other 04-11-2023 10:40-0400 Body height 172.72 cm Lilliam Kamla Other [facility] [place] Other 04-11-2023 10:40-0400 Body mass index (BMI) [Ratio] 26.67 kg/m2 Lilliam Kamla Other [facility] [place] Other 04-11-2023 10:40-0400 Body weight 79.56 kg Lilliam Kamla Other [facility] [place] Other 04-11-2023 10:40-0400 Diastolic blood pressure 80 mm[Hg] Lilliam Kamla Other [facility] [place] Other 04-11-2023 10:40-0400 SaO2% (BldA) [Mass fraction] 96 % Lilliam Kamla Other [facility] [place] Other 04-11-2023 10:40-0400 Systolic blood pressure 148 mm[Hg] Lilliam Kamla Other [facility] [employer] Other 03-21-2023 02:42-0400 Diastolic blood pressure 98 mm[Hg] DO Griselda Kuns Work Phone: [facility] 03-21-2023 02:42-0400 Heart rate 72 /min DO Griselda Kuns Work Phone: [facility] 03-21-2023 02:42-0400 Respiratory rate 16 /min DO Griselda Kuns Work Phone: [facility] 03-21-2023 02:42-0400 SaO2% (BldA) [Mass fraction] 97 % DO Griselda Kuns Work Phone: [facility] 03-21-2023 02:42-0400 Systolic blood pressure 170 mm[Hg] DO Griselda Kuns Work Phone: [facility] 03-21-2023 00:12-0400 Body height 172.72 cm DO Griselda Kuns Work Phone: [facility] 03-21-2023 00:12-0400 Body temperature 98 [degF] DO Griselda Kuns Work Phone: [facility] 03-21-2023 00:12-0400 Body weight 79.37 kg DO Griselda Kuns Work Phone: [facility] 03-15-2023 10:30-0400 Body height 172.72 cm Griselda [employer] Other [employer] [facility] [employer] Other 03-15-2023 10:30-0400 Body mass index (BMI) [Ratio] 26.76 kg/m2 Griselda [employer] Other [employer] [facility] [employer] Other 03-15-2023 10:30-0400 Body weight 79.83 kg Griselda [employer] Other [facility] [place] Other 03-15-2023 10:30-0400 Diastolic blood pressure 86 mm[Hg] Griselda Kuns Other [facility] [place] Other 03-15-2023 10:30-0400 Respiratory rate 16 /min Griselda Kuns Other [facility] [place] Other 03-15-2023 10:30-0400 SaO2% (BldA) [Mass fraction] 97 % Griselda Kuns Other [facility] [place] Other 03-15-2023 10:30-0400 Systolic blood pressure 174 mm[Hg] Griselda Kuns Other [facility] [employer] [place] Other 03-08-2023 10:00-0400 Body height 172.72 cm Griselda Kuns Other [facility] [place] Other 03-08-2023 10:00-0400 Body mass index (BMI) [Ratio] 27.18 kg/m2 Griselda Kuns Other [facility] [place] Other 03-08-2023 10:00-0400 Body weight 81.1 kg Griselda Kuns Other [facility] [employer] [place] Other 03-08-2023 10:00-0400 Diastolic blood pressure 82 mm[Hg] Griselda Kuns Other [facility] [place] Other 03-08-2023 10:00-0400 Respiratory rate 16 /min Griselda Kuns Other [facility] [place] Other 03-08-2023 10:00-0400 SaO2% (BldA) [Mass fraction] 96 % Griselda Kuns Other [employer] Other 03-08-2023 10:00-0400 Systolic blood pressure 118 mm[Hg] Griselda Kuns Other [facility] [employer] Other 02-26-2023 14:13-0400 Body height 172.72 cm DO Griselda Kuns Work Phone: [facility] 02-26-2023 14:13-0400 Body temperature 98 [degF] DO Griselda Kuns Work Phone: [facility] 02-26-2023 14:13-0400 Body weight 78.6 kg DO Griselda Kuns Work Phone: [facility] 02-26-2023 14:13-0400 Diastolic blood pressure 77 mm[Hg] DO Griselda Kuns Work Phone: [facility] 02-26-2023 14:13-0400 Heart rate 56 /min DO Griselda Kuns Work Phone: [facility] 02-26-2023 14:13-0400 Respiratory rate 18 /min DO Griselda Kuns Work Phone: [facility] 02-26-2023 14:13-0400 SaO2% (BldA) [Mass fraction] 96 % DO Griselda Kuns Work Phone: [facility] 02-26-2023 14:13-0400 Systolic blood pressure 142 mm[Hg] DO Griselda Kuns Work Phone: [facility] 12-05-2022 10:15-0400 Body height 172.72 cm [employer] Other [facility] [employer] Other 12-05-2022 10:15-0400 Body mass index (BMI) [Ratio] 25.85 kg/m2 Griselda [employer] Other [facility] [employer] Other 12-05-2022 10:15-0400 Body weight 77.11 kg Griselda Hastings Other [facility] [place] Other 12-05-2022 10:15-0400 Diastolic blood pressure 80 mm[Hg] Griseldakeith Hastings Other [facility] [place] Other 12-05-2022 10:15-0400 Respiratory rate 16 /min Griselda Hastings Other [facility] [place] Other 12-05-2022 10:15-0400 SaO2% (BldA) [Mass fraction] 96 % Griselda Hastings Other [facility] [place] Other 12-05-2022 10:15-0400 Systolic blood pressure 140 mm[Hg] Griselda Hastings Other [facility] [employer] [place] Other 09-13-2022 10:57-0400 Body height 170.6 cm Kelly Moorek PA-C Work Phone: [facility] 09-13-2022 10:57-0400 Body temperature 97.39 [degF] Kelly Moorek PA-C Work Phone: [facility] 09-13-2022 10:57-0400 Body weight 77.34 kg Kelly Moorek PA-C Work Phone: [facility] 09-13-2022 10:57-0400 Diastolic blood pressure 61 mm[Hg] Kelly Moorek PA-C Work Phone: [facility] 09-13-2022 10:57-0400 Heart rate 70 /min Kelly Moorek PA-C Work Phone: [facility] 09-13-2022 10:57-0400 Respiratory rate 18 /min Kelly Moorek PA-C Work Phone: [facility] 09-13-2022 10:57-0400 SaO2% (BldA) [Mass fraction] 100 % Kelly Perez PA-C Work Phone: [facility] 09-13-2022 10:57-0400 Systolic blood pressure 133 mm[Hg] Kelly Perez PA-C Work Phone: [facility] 08-31-2022 11:15-0400 Body height 172.72 cm Griselda Kuns Other [facility] [employer] [facility] [place] Other 08-31-2022 11:15-0400 Body mass index (BMI) [Ratio] 26.79 kg/m2 Griselda Kuns Other [facility] [place] Other 08-31-2022 11:15-0400 Body weight 79.92 kg Griselda Kuns Other [facility] [place] Other 08-31-2022 11:15-0400 Diastolic blood pressure 78 mm[Hg] Griselda Kuns Other [facility] [place] Other 08-31-2022 11:15-0400 Respiratory rate 16 /min Griselda Kuns Other [facility] [place] Other 08-31-2022 11:15-0400 SaO2% (BldA) [Mass fraction] 98 % Griselda Kuns Other [facility] [place] Other 08-31-2022 11:15-0400 Systolic blood pressure 138 mm[Hg] Griselda Kuns Other [facility] [place] Other 08-01-2022 10:30-0500 Body height 172.72 cm Griselda Kuns Other [facility] [employer] [place] Other 08-01-2022 10:30-0500 Body mass index (BMI) [Ratio] 27.27 kg/m2 Griselda Kuns Other [facility] [place] Other 08-01-2022 10:30-0500 Body weight 81.38 kg Griselda Kuns Other [facility] [employer] [place] Other 08-01-2022 10:30-0500 Diastolic blood pressure 82 mm[Hg] Griselda Kuns Other [facility] [employer] [place] Other 08-01-2022 10:30-0500 Respiratory rate 16 /min Griselda Kuns Other [facility] [employer] [place] Other 08-01-2022 10:30-0500 SaO2% (BldA) [Mass fraction] 99 % Griselda Kuns Other [facility] [employer] [place] Other 08-01-2022 10:30-0500 Systolic blood pressure 146 mm[Hg] Griselda Kuns Other [email or web address] [email or web address] Other 07-17-2022 09:45-0500 Diastolic blood pressure 98 mm[Hg] DO Griselda Kuns Work Phone: [facility] 07-17-2022 09:45-0500 Heart rate 69 /min DO Griselda Kuns Work Phone: [facility] 07-17-2022 09:45-0500 Respiratory rate 16 /min DO Griselda Kuns Work Phone: [facility] 07-17-2022 09:45-0500 SaO2% (BldA) [Mass fraction] 99 % DO Griselda Kuns Work Phone: [facility] 07-17-2022 09:45-0500 Systolic blood pressure 144 mm[Hg] DO Griselda Kuns Work Phone: [facility] 07-17-2022 07:58-0500 Body height 172.72 cm DO Griselda Kuns Work Phone: [facility] 07-17-2022 07:58-0500 Body weight 79.37 kg DO Griselda Kuns Work Phone: [facility] 06-28-2022 10:20-0500 Body height 172.72 cm Trish Blades Other [employer] [place] Other 06-28-2022 10:20-0500 Body mass index (BMI) [Ratio] 26.67 kg/m2 Trish Blades Other [facility] [employer] [place] Other 06-28-2022 10:20-0500 Body weight 79.56 kg Trish Blades Other [facility] [place] Other 06-28-2022 10:20-0500 Diastolic blood pressure 80 mm[Hg] Trish Blades Other [facility] [place] Other 06-28-2022 10:20-0500 Systolic blood pressure 140 mm[Hg] Trish Blades Other [facility] [employer] [place] Other 05-26-2022 13:30-0500 Body height 172.72 cm Griselda Kuns Other [facility] [employer] [facility] [place] Other 05-26-2022 13:30-0500 Body mass index (BMI) [Ratio] 26.7 kg/m2 Griselda Kuns Other [facility] [employer] [facility] [employer] [place] Other 05-26-2022 13:30-0500 Body weight 79.65 kg Griselda Kuns Other [facility] [employer] [place] Other 05-26-2022 13:30-0500 Diastolic blood pressure 82 mm[Hg] Griselda Kuns Other [facility] [employer] [place] Other 05-26-2022 13:30-0500 Respiratory rate 18 /min Griselda Kuns Other [employer] [facility] [place] Other 05-26-2022 13:30-0500 SaO2% (BldA) [Mass fraction] 98 % Griselda Kuns Other [facility] [employer] Other 05-26-2022 13:30-0500 Systolic blood pressure 144 mm[Hg] Griselda Kuns Other [facility] [employer] Other 04-17-2022 00:30-0400 Diastolic blood pressure 64 mm[Hg] DO Griselda Kuns Work Phone: [facility] 04-17-2022 00:30-0400 Heart rate 78 /min DO Griselda Kuns Work Phone: [facility] 04-17-2022 00:30-0400 Respiratory rate 16 /min DO Griselda Kuns Work Phone: [facility] 04-17-2022 00:30-0400 SaO2% (BldA) [Mass fraction] 97 % DO Griselda Kuns Work Phone: [facility] 04-17-2022 00:30-0400 Systolic blood pressure 135 mm[Hg] DO Griselda Kuns Work Phone: [facility] 04-16-2022 19:45-0400 Body height 172.72 cm DO Griselad Kuns Work Phone: [facility] 04-16-2022 19:45-0400 Body temperature 98.1 [degF] DO Griselda Kuns Work Phone: [facility] 04-16-2022 19:45-0400 Body weight 78 kg DO Griselda Kuns Work Phone: [facility] 04-06-2022 16:31-0400 Body height 172.72 cm DO Griselda Kuns Work Phone: [facility] 04-06-2022 16:31-0400 Body temperature 98.1 [degF] DO Griselda Kuns Work Phone: [facility] 04-06-2022 16:31-0400 Body weight 79.37 kg DO Griselda Kuns Work Phone: [facility] 04-06-2022 16:31-0400 Diastolic blood pressure 108 mm[Hg] DO Griselda Kuns Work Phone: [facility] 04-06-2022 16:31-0400 Heart rate 95 /min DO Griselda Kuns Work Phone: [facility] [facility] 04-06-2022 16:31-0400 Respiratory rate 19 /min DO Griselda Kuns Work Phone: [facility] 04-06-2022 16:31-0400 SaO2% (BldA) [Mass fraction] 97 % DO Griselda Kuns Work Phone: [facility] 04-06-2022 16:31-0400 Systolic blood pressure 138 mm[Hg] DO Griselda Kuns Work Phone: [facility] 03-16-2022 13:30-0400 Body height 172.72 cm Griselda [employer] Other [facility] [employer] Other 03-16-2022 13:30-0400 Body mass index (BMI) [Ratio] 26.91 kg/m2 Griselda Kuns Other [employer] [facility] [employer] Other 03-16-2022 13:30-0400 Body weight 80.29 kg Griselda [employer] Other [facility] Other 03-16-2022 13:30-0400 Diastolic blood pressure 80 mm[Hg] Griselda Kuns Other [facility] Other 03-16-2022 13:30-0400 Respiratory rate 16 /min Griselda Kuns Other [facility] Other 03-16-2022 13:30-0400 SaO2% (BldA) [Mass fraction] 97 % Griselda Kuns Other [facility] Other 03-16-2022 13:30-0400 Systolic blood pressure 140 mm[Hg] Griselda Kuns Other [facility] Other 01-30-2022 12:00-0400 Body height 172.72 cm Griselda Kuns Other [facility] Other 01-30-2022 12:00-0400 Body mass index (BMI) [Ratio] 26.3 kg/m2 Griselda Kuns Other [facility] Other 01-30-2022 12:00-0400 Body weight 78.47 kg Griselda Kuns Other [facility] Other 01-30-2022 12:00-0400 Diastolic blood pressure 82 mm[Hg] Griselda Kuns Other [facility] Other 01-30-2022 12:00-0400 Respiratory rate 16 /min Griselda Kuns Other [facility] [place] Other 01-30-2022 12:00-0400 SaO2% (BldA) [Mass fraction] 99 % Griselda Kuns Other [facility] [place] Other 01-30-2022 12:00-0400 Systolic blood pressure 146 mm[Hg] Griselda Kuns Other [facility] [place] Other 12-26-2021 11:00-0400 Body height 172.72 cm Griselda Kuns Other [facility] [place] Other 12-26-2021 11:00-0400 Body mass index (BMI) [Ratio] 26.61 kg/m2 Griselda Kuns Other [facility] [place] Other 12-26-2021 11:00-0400 Body weight 79.38 kg Griselda Kuns Other [facility] [place] Other 12-26-2021 11:00-0400 Diastolic blood pressure 80 mm[Hg] Griselda Kuns Other [facility] [place] Other 12-26-2021 11:00-0400 Respiratory rate 16 /min Griselda Kuns Other [facility] [place] Other 12-26-2021 11:00-0400 SaO2% (BldA) [Mass fraction] 96 % Griselda Kuns Other [facility] [place] Other 12-26-2021 11:00-0400 Systolic blood pressure 166 mm[Hg] Griselda Kuns Other [facility] Other 12-05-2021 10:15-0400 Body height 172.72 cm Griselda Kuns Other [facility] [place] Other 12-05-2021 10:15-0400 Body mass index (BMI) [Ratio] 269.71 kg/m2 Griselda Kuns Other [facility] [place] Other 12-05-2021 10:15-0400 Body weight 804.69 kg Griselda Kuns Other [facility] [place] Other 12-05-2021 10:15-0400 Diastolic blood pressure 72 mm[Hg] Griselda Kuns Other [facility] [place] Other 12-05-2021 10:15-0400 Respiratory rate 18 /min Griselda Kuns Other [facility] [place] Other 12-05-2021 10:15-0400 SaO2% (BldA) [Mass fraction] 99 % Griselda Kuns Other [facility] [place] Other 12-05-2021 10:15-0400 Systolic blood pressure 130 mm[Hg] Griselda Kuns Other [facility] Other 11-08-2021 11:15-0400 Body height 172.72 cm Griselda Kuns Other [facility] [place] Other 11-08-2021 11:15-0400 Body mass index (BMI) [Ratio] 27.06 kg/m2 Griselda Kuns Other [facility] Other 11-08-2021 11:15-0400 Body weight 80.74 kg Griselda Kuns Other [facility] [place] Other 11-08-2021 11:15-0400 Diastolic blood pressure 80 mm[Hg] Griselda Kuns Other [facility] Other 11-08-2021 11:15-0400 Respiratory rate 16 /min Grieslda Kuns Other [facility] [employer] Other 11-08-2021 11:15-0400 SaO2% (BldA) [Mass fraction] 97 % Griseldakeith Hastings Other [facility] [employer] Other 11-08-2021 11:15-0400 Systolic blood pressure 128 mm[Hg] Griselda Andreagideon Other [facility] [employer] Other 11-03-2021 09:38-0400 Body height 170.51 cm Griselda Hastings Work Phone: [facility] Work Phone: 11-03-2021 09:38-0400 Body mass index (BMI) [Ratio] 27.05 kg/m2 Griselda Hastings Work Phone: [facility] Work Phone: 11-03-2021 09:38-0400 Body surface area Derived from formula 1.91 m2 Griselda Hastings Work Phone: [facility] Work Phone: 11-03-2021 09:38-0400 Body temperature 98.2 [degF] Griselda Driver Nelida Work Phone: [facility] Work Phone: 11-03-2021 09:38-0400 Body weight 78.65 kg Griselda R Andreagideon Work Phone: [facility] Work Phone: 11-03-2021 09:38-0400 Diastolic blood pressure 67 mm[Hg] Griselda Mendezs Work Phone: [facility] Work Phone: 11-03-2021 09:38-0400 Heart rate 63 /min Griselda R Kuns Work Phone: [facility] Work Phone: 11-03-2021 09:38-0400 Respiratory rate 16 /min Griselda R Kuns Work Phone: [facility] Work Phone: 11-03-2021 09:38-0400 SaO2% (BldA) [Mass fraction] 99 % Griselda R Kuns Work Phone: [facility] Work Phone: 11-03-2021 09:38-0400 Systolic blood pressure 147 mm[Hg] Griselda R Kuns Work Phone: [facility] Work Phone: 11-03-2021 09:38-0400 7 1 Griselda R Kuns Work Phone: [facility] Work Phone: Comment on above: [employer] 11-01-2021 13:30-0400 Body height 172.72 cm Griselda Hastings Other [facility] Other 11-01-2021 13:30-0400 Body mass index (BMI) [Ratio] 26.61 kg/m2 Griselda Hastings Other [facility] Other 11-01-2021 13:30-0400 Body weight 79.38 kg Griselda Hastings Other [facility] Other 11-01-2021 13:30-0400 Diastolic blood pressure 78 mm[Hg] Griselda Hastings Other [facility] Other 11-01-2021 13:30-0400 Respiratory rate 18 /min Griselda Hastings Other [facility] Other 11-01-2021 13:30-0400 SaO2% (BldA) [Mass fraction] 99 % Griselda Hastings Other [facility] Other 11-01-2021 13:30-0400 Systolic blood pressure 140 mm[Hg] Griseldakeith Mendezgideon Other [facility] Other 10-24-2021 09:45-0400 Body height 172.72 cm Sheng Alatorregideon Other [facility] [place] Other 10-24-2021 09:45-0400 Body mass index (BMI) [Ratio] 26.76 kg/m2 Sheng Schneider Other [facility] Other 10-24-2021 09:45-0400 Body weight 79.83 kg Sheng Elsxavier Other [facility] [place] Other 10-13-2021 09:50-0400 Body height 172 cm Memo Cole MD Work Phone: [facility] 10-13-2021 09:50-0400 Body temperature 97.5 [degF] Memo Cole MD Work Phone: [facility] 10-13-2021 09:50-0400 Body weight 81.28 kg Memo Cole MD Work Phone: [facility] 10-13-2021 09:50-0400 Diastolic blood pressure 77 mm[Hg] Memo Cole MD Work Phone: [facility] 10-13-2021 09:50-0400 Heart rate 70 /min Memo Cole MD Work Phone: [facility] 10-13-2021 09:50-0400 Respiratory rate 16 /min Memo Cole MD Work Phone: [facility] 10-13-2021 09:50-0400 SaO2% (BldA) [Mass fraction] 99 % Memo Cole MD Work Phone: [facility] 10-13-2021 09:50-0400 Systolic blood pressure 152 mm[Hg] Memo Cole MD Work Phone: [facility] 09-19-2021 10:45-0400 Body height 172.72 cm Griselda Kuns Other [facility] Other 09-19-2021 10:45-0400 Body mass index (BMI) [Ratio] 26.15 kg/m2 Griselda Kuns Other [facility] Other 09-19-2021 10:45-0400 Body weight 78.02 kg Griselda Kuns Other [facility] Other 09-19-2021 10:45-0400 Diastolic blood pressure 80 mm[Hg] Griselda Kuns Other [facility] Other 09-19-2021 10:45-0400 Respiratory rate 18 /min Griselda Kuns Other [facility] [place] Other 09-19-2021 10:45-0400 SaO2% (BldA) [Mass fraction] 99 % Griselda Kuns Other [facility] Other 09-19-2021 10:45-0400 Systolic blood pressure 140 mm[Hg] Griselda Kuns Other [facility] Other 06-30-2021 13:30-0500 Body height 172.72 cm Griselda Kuns Other [facility] Other 04-14-2021 08:45-0400 Body height 172.72 cm Griselda Kuns Other [facility] Other 04-14-2021 08:45-0400 Body mass index (BMI) [Ratio] 25.85 kg/m2 Griselda Kuns Other [facility] Other 04-14-2021 08:45-0400 Body weight 77.11 kg Griselda Kuns Other [facility] Other 04-14-2021 08:45-0400 Diastolic blood pressure 80 mm[Hg] Griselda Kuns Other [facility] Other 04-14-2021 08:45-0400 Respiratory rate 16 /min Griselda Kuns Other [facility] [place] Other 04-14-2021 08:45-0400 SaO2% (BldA) [Mass fraction] 99 % Griselda Kuns Other [facility] Other 04-14-2021 08:45-0400 Systolic blood pressure 124 mm[Hg] Griselda Kuns Other [facility] Other Encounters Encounter Date Encounter Type Care Provider Facility Start: 02-29-2024 ambulatory [facility] Start: 02-13-2024 End: 02-13-2024 ambulatory [facility] Start: 02-13-2024 End: 02-13-2024 ambulatory [facility] Start: 02-11-2024 End: 02-12-2024 ambulatory [facility] Start: 02-11-2024 End: 02-11-2024 ambulatory [facility] Start: 02-04-2024 End: 02-04-2024 ambulatory GRISELDA R NELIDA [facility] Start: 01-31-2024 End: 01-31-2024 ambulatory [facility] Work Phone: Start: 01-31-2024 End: 01-31-2024 Patient encounter procedure [facility] [place] Work Phone: Start: 01-16-2024 End: 01-16-2024 ambulatory ELVI CADENA Not Available Start: 01-03-2024 End: 01-03-2024 ambulatory [facility] Start: 01-02-2024 End: 01-02-2024 ambulatory LANDY ROSS Not Available Start: 12-17-2023 End: 12-17-2023 ambulatory Sarina Ramsey MD Facility:[facility] Start: 12-13-2023 End: 12-13-2023 ambulatory IGNACIA JACK [facility] Start: 12-13-2023 End: 12-13-2023 ambulatory SHIMON [facility] Start: 12-12-2023 End: 12-12-2023 ambulatory SOLOMON [facility] Start: 12-11-2023 End: 12-11-2023 ambulatory ELVI CADENA Not Available Start: 12-03-2023 End: 12-03-2023 ambulatory DO Griselda Kuns Work Phone: 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 Work Phone: Start: 10-29-2023 End: 10-29-2023 Patient encounter procedure DO Griselda Kuns Work Phone: [facility] [place] Work Phone: Start: 10-26-2023 End: 10-26-2023 ambulatory MEMO COLE Facility:[facility] Start: 10-26-2023 Non-patient / Non-visit DO Katy tt Kuns Work Phone: 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] Start: 10-24-2023 End: 10-24-2023 ambulatory NIKOLE THOMASON Not Available Start: 10-22-2023 End: 10-22-2023 ambulatory Sarina Ramsey MD Facility: [facility] Start: 10-18-2023 End: 10-18-2023 Patient encounter procedure DO Griselda Kuns Work Phone: [facility] Cardiology Work Phone: Start: 10-16-2023 End: 10-16-2023 ambulatory ELVI CADENA Not Available Start: 10-09-2023 End: 10-09-2023 ambulatory Griselda Kuns Facility:[facility] Start: 10-09-2023 End: 10-09-2023 ambulatory DO Griselda Kuns Work Phone: [facility] Work Phone: Start: 10-09-2023 End: 10-09-2023 Patient encounter procedure DO Griselda Kuns Work Phone: [facility] [place] Work Phone: Start: 10-05-2023 End: 10-05-2023 Office outpatient new 60 minutes Ignacia Jack MD Work Phone: [facility] Comment on above: Brainstem lesion (Pr imary Dx); Pontine glioma (Multi) Start: 10-05-2023 End: 10-05-2023 ambulatory IGNACIA JACK [facility] Start: 10-04-2023 End: 10-04-2023 ambulatory JOSE MARRUFO Not Available Start: 10-01-2023 End: 10-01-2023 ambulatory Sarina Ramsey MD Facility:[facility] Start: 09-19-2023 End: 09-19-2023 Subsequent hospital visit by physician Rad External Film EF RAD EXTERNAL [employer]M [employer]IRTUAL Comment on above: Arrived Start: 09-19-2023 End: 09-19-2023 ambulatory LIBBY GROSS [facility] Start: 09-10-2023 End: 09-10-2023 ambulatory JEREMY DISLA Not Available Start: 09-05-2023 End: 09-05-2023 Patient encounter procedure DO Griselda Kuns Work Phone: [facility] Work Phone: Start: 09-05-2023 End: 09-05-2023 ambulatory DO Griselda Kuns Work Phone: [facility] Work Phone: Start: 09-05-2023 End: 09-05-2023 ambulatory DO Griselda Kuns Work Phone: [facility] Work Phone: Start: 09-05-2023 End: 09-05-2023 Patient encounter procedure DO Griselda Kuns Work Phone: [facility] Vascular Surgery Work Phone: Start: 09-03-2023 End: 09-03-2023 ambulatory [facility] Start: 08-30-2023 End: 08-30-2023 ambulatory NIKOLE THOMASON Not Available Start: 08-15-2023 End: 08-15-2023 Patient encounter procedure DO Griselda Kuns Work Phone: [facility] [place] Work Phone: Start: 08-14-2023 End: 08-14-2023 ambulatory NIKOLE THOMASON Not Available Start: 08-06-2023 End: 08-06-2023 ambulatory Sarina Ramsey MD Facility: [facility] Start: 08-02-2023 End: 08-02-2023 ambulatory DO Griselda Kuns Work Phone: [facility] Work Phone: Start: 08-02-2023 End: 08-02-2023 Patient encounter procedure DO Griselda Kuns Work Phone[facility] Work Phone: Start: 07-26-2023 Chart abstracting Nikole Thomason NUCLEAR ENGINEER Work Phone: [facility] Start: 07-26-2023 End: 07-26-2023 ambulatory NIKOLE THOMASON Not Available Start: 07-19-2023 Bamboo flowsheet Nikole Thomason NUCLEAR ENGINEER Work Phone: [facility] Start: 07-19-2023 Bamboo flowsheet Nikole Thomason NUCLEAR ENGINEER Work Phone: [facility] Start: 07-19-2023 End: 07-19-2023 ambulatory NIKOLE THOMASON Not Available Start: 07-18-2023 End: 07-21-2023 ambulatory [facility] Neisha KHAN [facility] Start: 07-03-2023 End: 07-03-2023 ambulatory NIKOLE THOMASON Not Available Start: 07-02-2023 End: 07-02-2023 ambulatory Griselda Kuns Other [facility] Other Start: 07-02-2023 Office outpatient vi sit 25 minutes Griselda Kuns [facility] Start: 07-02-2023 End: 07-02-2023 Patient encounter procedure DO Griselda Kuns Work Phone: [facility] [place] Work Phone: Start: 06-07-2023 End: 06-07-2023 ambulatory NIKOLE THOMASON Not Available Start: 05-31-2023 End: 05-31-2023 ambulatory Griselda Kuns Other [facility] Other Start: 05-31-2023 Office outpatient vi sit 25 minutes Griselda Kuns [facility] [place] Start: 05-30-2023 Office outpatient vi sit 15 minutes Ruddy Harvey [facility] Start: 05-30-2023 End: 05-30-2023 ambulatory DO Griselda Kuns Work Phone: [facility] Other Start: 05-30-2023 End: 05-31-2023 Patient encounter procedure DO Griselda Kuns Work Phone: [facility] Start: 05-30-2023 End: 05-30-2023 Patient encounter procedure DO Griselda Kuns Work Phone: [facility] Vascular Surgery Work Phone: Start: 05-15-2023 End: 05-15-2023 ambulatory Lilliam Kamla Other [facility] Other Start: 05-15-2023 Office outpatient vi sit 25 minutes Lilliam Kamla [facility] Start: 05-15-2023 Telephone encounter Lilliam Cason FP G Operations Officer Trust [employer] Start: 05-15-2023 End: 05-15-2023 Patient encounter procedure DO Griselda Kuns Work Phone: [facility] Work Phone: Start: 05-14-2023 End: 05-14-2023 ambulatory Sarina Ramsey MD Facility:[facility] Start: 05-07-2023 End: 05-07-2023 ambulatory Griselda Kuns Facility:[facility] Start: 05-07-2023 End: 05-07-2023 Admission to same day surgery center DO Griselda Kuns Work Phone: [facility] Work Phone: Start: 05-07-2023 End: 05-07-2023 ambulatory DO Griselda Kuns Work Phone: [facility] Work Phone: Start: 05-04-2023 End: 05-04-2023 ambulatory Nikole Thomason Facility:[facility] Start: 05-04-2023 End: 05-04-2023 ambulatory DO Griselda Kuns Work Phone: [facility] Work Phone: Start: 05-04-2023 End: 05-04-2023 Patient encounter procedure DO Griselda Kuns Work Phone: [facility] [place] Work Phone: Start: 05-03-2023 End: 05-03-2023 ambulatory Ruddy Harvey Other [facility] Other Start: 05-03-2023 Office outpatient ne w 45 minutes Ruddy Harvey [facility] Start: 05-03-2023 Telephone encounter Ruddy craft [facility] Operations [facility] [employer] [facility] Start: 05-01-2023 End: 05-01-2023 ambulatory Griselda Kuns Other [facility] Other Start: 05-01-2023 Office outpatient vi sit 25 minutes Griselda Kuns [facility] [place] Start: 04-25-2023 End: 04-25-2023 ambulatory Lilliam Kamla Facility:[facility] Start: 04-25-2023 End: 04-25-2023 ambulatory DO Griselda Kuns Work Phone: [facility] Work Phone: Start: 04-25-2023 End: 04-25-2023 Patient encounter procedure DO Griselda Kuns Work Phone: [facility] [place] Work Phone: Start: 04-16-2023 End: 04-16-2023 ambulatory Sarina Ramsey MD Facility: [facility] Start: 04-12-2023 End: 04-12-2023 ambulatory Lilliam Kamla Other [facility] Other Start: 04-12-2023 Telephone encounter Lilliam Cason [facility] Cardiology Start: 04-11-2023 End: 04-11-2023 ambulatory Lilliam Kamla Other [facility] Other Start: 04-11-2023 Office outpatient ne w 45 minutes Lilliam Kamla [facility] Start: 04-10-2023 End: 04-10-2023 ambulatory Griselda Kuns Other [facility] Other Start: 04-10-2023 Telephone encounter Griselda Kuns [facility] Start: 03-30-2023 End: 03-30-2023 ambulatory Griselda Kuns Facility:[facility] Start: 03-30-2023 End: 03-30-2023 ambulatory DO Griselda Kuns Work Phone: [facility] Work Phone: Start: 03-30-2023 End: 03-30-2023 Patient encounter procedure DO Griselda Kuns Work Phone: [facility] [place] Work Phone: Start: 03-21-2023 End: 03-21-2023 Emergency department patient visit Griselda Hastings Facility:[facility] Start: 03-21-2023 End: 03-21-2023 Emergency department patient visit DO Griselda Kuns Work Phone: [facility]-Emergency Room Work Phone: Start: 03-15-2023 End: 03-15-2023 ambulatory Griselda Kuns Other [facility] Other Start: 03-15-2023 Office outpatient vi sit 25 minutes Griselda Kuns [facility] [place] Start: 03-08-2023 End: 03-08-2023 ambulatory Griselda Kuns Other [facility] Other Start: 03-08-2023 Office outpatient vi sit 25 minutes Griselda Kuns [facility] [place] Start: 02-26-2023 End: 02-26-2023 Emergency department patient visit Daniel Gaytan Facility:[facility] Start: 02-26-2023 End: 02-26-2023 Emergency department patient visit DO Griseldakeith Hastings Work Phone: [facility]Emergency Room Work Phone: Start: 12-28-[address] BRET Lawrence ity:UNKNOWN Start: 12-05-2022 End: 12-05-2022 ambulatory Griselda Kuns Other [facility] Other Start: 12-05-2022 Office outpatient vi sit 25 minutes Griselda Kuns [facility] [place] Start: 11-15-2022 End: 11-15-2022 ambulatory Lima Joseph Facility:[facility] Start: 11-15-2022 End: 11-15-2022 ambulatory DO Griselda Kuns Work Phone: [facility] Work Phone: Start: 11-15-2022 End: 11-15-2022 Patient encounter procedure DO Griselda Kuns Work Phone: [facility] [address] Work Phone: Start: 10-27-2022 End: 10-27-2022 Subsequent hospital visit by physician Arrival Time Radiology Work Phone: Radiology [facility] Comment on above: Malignant neoplasm o f head, 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] Start: 10-24-2022 End: 10-24-2022 ambulatory Griselda Kuns Facility:[facility] Start: 10-24-2022 End: 10-24-2022 ambulatory DO Griselda Kuns Work Phone: [facility] Work Phone: Start: 10-24-2022 End: 10-24-2022 Patient encounter procedure DO Griselda Kuns Work Phone: [facility] [place] Work Phone: Start: 09-28-2022 End: 09-28-2022 ambulatory DEMOND R MELLER Facility: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] Start: 09-18-2022 Telephone encounter Kelly ghosh PA-C Work Phone: [facility] Comment on above: Patient Question Start: 09-13-2022 End: 09-13-2022 Patient encounter procedure Kelly Perez PA-C Work Phone: [facility] Comment on above: NPH (normal pressure hydrocephalus) (HCC) (Primary Dx) Start: 08-31-2022 End: 08-31-2022 ambulatory Griselda Kuns Other [facility] Other Start: 08-31-2022 Office outpatient vi sit 25 minutes Griselda Kuns [facility] Start: 08-01-2022 End: 08-01-2022 ambulatory Griselda Kuns Other [facility] Other Start: 08-01-2022 Office outpatient vi sit 25 minutes Griselda Kuns [facility] Start: 07-17-2022 End: 07-17-2022 ambulatory DO Griselda Kuns Work Phone: [facility] Work Phone: Start: 07-17-2022 End: 07-17-2022 Patient encounter procedure DO Griselda Kuns Work Phone: [facility] [place] Work Phone: Start: 07-14-2022 End: 07-14-2022 Patient encounter procedure DO Griselda Kuns Work Phone: [facility] [place] Work Phone: Start: 06-28-2022 End: 06-28-2022 ambulatory Trish Blades Other [facility] Other Start: 06-28-2022 Office outpatient ne w 45 minutes Trish Blades [facility] Neurosurgery Start: 05-26-2022 End: 05-26-2022 ambulatory Griselda Kuns Other [facility] Other Start: 05-26-2022 Office outpatient vi sit 25 minutes Griselda Kuns [facility] Start: 05-17-2022 End: 05-17-2022 ambulatory DO Griselda Kuns Work Phone: [facility] Work Phone: Start: 05-17-2022 End: 05-17-2022 Discharged Recurring DO Griselda Kuns Work Phone: [facility] [address] Start: 04-27-2022 Registered Recurring DO Griselda Kuns Work Phone: [facility] [address] Start: 04-16-2022 End: 04-17-2022 Emergency department patient visit DO Griselda Kuns Work Phone: [facility] Start: 04-10-2022 End: 04-10-2022 ambulatory Griselda Kuns Other [facility] Other Start: 04-10-2022 Telephone encounter Griselda Kuns [facility] Start: 04-06-2022 End: 04-06-2022 Emergency department patient visit DO Griselda Kuns Work Phone: [facility] Start: 03-27-2022 Telephone encounter Asya Reynolds RN Hematology/Oncology Comment on above: Appointment Start: 03-22-2022 End: 03-22-2022 ambulatory Griselda Kuns Other [facility] [place] Other Start: 03-22-2022 Telephone encounter Griselda Kuns [facility] Start: 03-16-2022 End: 03-16-2022 ambulatory Griselda Kuns Other [facility] [place] Other Start: 03-16-2022 Office outpatient vi sit 25 minutes Griselda Kuns [facility] Start: 03-16-2022 Telephone encounter Self [facility] Comment on above: Triage (Internal Ref erral--old) Start: 03-09-2022 End: 03-09-2022 ambulatory Griselda Kuns Other [facility] [place] Other Start: 03-09-2022 Telephone encounter Griselda Kuns [facility] Start: 03-07-2022 End: 03-07-2022 ambulatory Griselda Kuns Other [facility] [place] Other Start: 03-07-2022 Telephone encounter Griselda Kuns [facility] Start: 03-03-2022 Telephone encounter Griselda Kuns [facility] Start: 03-03-2022 End: 03-03-2022 ambulatory DO Griselda Kuns Work Phone: [facility] [place] Other Start: 03-03-2022 End: 03-03-2022 Discharged Recurring DO Griselda Kuns Work Phone: [facility] [address] Start: 03-03-2022 Registered Recurring DO Griselda Kuns Work Phone: [facility] [address] Start: 02-07-2022 End: 02-07-2022 ambulatory Griselda Kuns Other [facility] [place] Other Start: 02-07-2022 Telephone encounter Griselda Kuns [facility] Start: 01-30-2022 End: 01-30-2022 ambulatory Griselda Kuns Other [facility] [place] Other Start: 01-30-2022 Office outpatient vi sit 25 minutes Griselda Kuns [facility] Start: 01-12-2022 End: 01-12-2022 ambulatory Girselda Kuns Other [facility] [place] Other Start: 01-12-2022 Telephone encounter Griselda Kuns [facility] Start: 12-26-2021 End: 12-26-2021 ambulatory Griselda Kuns Other [facility] [place] Other Start: 12-26-2021 Office outpatient vi sit 25 minutes Griselda Kuns [facility] Start: 12-23-2021 End: 12-23-2021 ambulatory Griselda Kuns Other [facility] [place] Other Start: 12-23-2021 Telephone encounter Griselda Kuns [facility] Start: 12-05-2021 End: 12-05-2021 ambulatory Griselda Kuns Other [facility] [place] Other Start: 12-05-2021 Office outpatient vi sit 25 minutes Griselda Kuns [facility] Start: 12-05-2021 Telephone encounter Griselda Kuns [facility] Start: 11-22-2021 End: 11-22-2021 ambulatory Griselda Kuns Other [facility] [place] Other Start: 11-22-2021 Telephone encounter Griselda Kuns [facility] Start: 11-21-2021 Office outpatient vi sit 15 minutes Griselda R Kuns Work Phone: [facility] Work Phone: Start: 11-09-2021 End: 11-09-2021 ambulatory Griselda Kuns Other [facility] [place] Other Start: 11-09-2021 Telephone encounter Griselda Kuns [facility] Start: 11-08-2021 End: 11-08-2021 ambulatory Griselda Kuns Other [facility] [place] Other Start: 11-08-2021 Office outpatient vi sit 25 minutes Griselda Kuns [facility] Start: 11-03-2021 Office consultation new/estab patient 60 min Griselda R Kuns Work Phone: [facility] Work Phone: Start: 11-01-2021 End: 11-01-2021 ambulatory Griselda Kuns Other [facility] [place] Other Start: 11-01-2021 Office outpatient vi sit 25 minutes Griselda Hastings [facility] [place] Start: 10-31-2021 End: 10-31-2021 ambulatory Sheng Schneider Other [place] [email or web address] Other Start: 10-31-2021 Telephone encounter Sheng Clark [facility] Neurosurgery Start: 10-27-2021 End: 10-27-2021 ambulatory Memo Cole MD Work Phone: Hematology/Oncology Comment on above: 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); Lung nodules; Malignant neoplasm of head, face and neck (HCC) Start: 10-27-2021 End: 10-27-2021 Telemedicine consultation with patient Memo Cole MD Work Phone: [place] Start: 10-24-2021 End: 10-24-2021 ambulatory Sheng Schneider Other [facility] [place] Other Start: 10-24-2021 Office outpatient ne w 30 minutes Sheng Schneider [facility] Neurosurgery Start: 10-13-2021 Telephone encounter Memo kapoor MD Work Phone: [facility] Comment on above: Referral Information (Neurosurgery) Start: 10-13-2021 End: 10-13-2021 ambulatory Memo Cole MD Work Phone: Hematology/Oncology Comment on above: Glioma of brain (HCC ) (Primary Dx); Lung nodules; 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) Start: 10-13-2021 End: 10-13-2021 Patient encounter procedure Memo Cole MD Work Phone: [place] Start: 10-06-2021 End: 10-06-2021 ambulatory Griselda Hastings Other [place] [email or web address] Other Start: 10-06-2021 Telephone encounter Asya Kumar RN Hematology/Oncology Comment on above: Results Start: 09-29-2021 End: 09-29-2021 ambulatory Griselda Kuns Other [facility] [place] Other Start: 09-29-2021 Telephone encounter Griselda Kuns [facility] Start: 09-27-2021 End: 09-27-2021 ambulatory Griselda Kuns Other [facility] [place] Other Start: 09-27-2021 Telephone encounter Griselda Kuns [facility] Start: 09-19-2021 End: 09-19-2021 ambulatory Griselda Kuns Other [facility] [place] Other Start: 09-19-2021 Office outpatient vi sit 25 minutes Griselda Kuns [facility] [place] Start: 09-12-2021 End: 09-12-2021 ambulatory Griselda Kuns Other [facility] [place] Other Start: 09-12-2021 Telephone encounter Griselda Kuns [facility] [place] Start: 09-08-2021 End: 09-08-2021 ambulatory Griselda Kuns Other [facility] [place] Other Start: 09-08-2021 Telephone encounter Griselda Kuns [facility] [place] Start: 06-30-2021 End: 06-30-2021 ambulatory Griselda Kuns Other [facility] [place] Other Start: 06-30-2021 Office outpatient vi sit 15 minutes Griselda Kuns [facility] [place] Start: 06-30-2021 Telephone encounter Griselda Kuns [facility] [place] Start: 06-29-2021 End: 06-29-2021 ambulatory Griselda Kuns Other [facility] [place] Other Start: 06-29-2021 Nursing evaluation o f patient and report Griselda Kuns [facility] Start: 04-19-2021 End: 04-19-2021 ambulatory Griselda Hastings Other [facility] [employer] Other Start: 04-19-2021 Nursing evaluation o f patient and report Griselda Hastings [facility] Start: 04-19-2021 Telephone encounter Griselda Hastings [facility] Start: 04-14-2021 Office outpatient vi sit 15 minutes Griselda Hastings [facility] Start: 10-01-2020 End: 10-01-2020 Patient encounter procedure Griselda Hastings Work Phone: -Electrodiagnostics Start: 09-20-2020 End: 09-20-2020 Patient encounter procedure Griselda Hastings -Lab [facility] Start: 09-13-2020 End: 09-13-2020 Patient encounter procedure Griselda Hastings -XRay [facility] Procedures Date Procedure Procedure Detail Performing Clinician Start: 10-26-2023 Ct soft tissue neck w/contrast material Memo Cole MD Work Phone: Start: 10-26-2023 Ct thorax w/contrast material Memo kapoor MD Work Phone: Start: 10-26-2023 Blood count complete auto&auto difrntl wbc Memo Cole MD Work Phone: Start: 10-09-2023 Respiratory Panel (PCR) DO Griselda Hastings Work Phone: Start: 10-09-2023 Plain chest X-ray DO Griselda Hastings Work Phone: Start: 09-19-2023 MR TRANSFER OF OUTSIDE FILMS LIBBY BOOTH Start: 09-19-2023 Study Interpretation of outside study Libby Gross MD Work Phone: Start: 09-05-2023 Ankle brachial pressure index DO Griselda cavanaugh Work Phone: Start: 05-07-2023 Lower limb angiography DO Griselda Hastings Work Phone: Start: 05-04-2023 CT angiography of head DO Griselda Hastings Work Phone: Start: 05-04-2023 CT angiography of neck vessels DO Griselda [employer] Work Phone: Start: 04-25-2023 Pulse volume recorder pneumoplethysmography DO Griselda Hastings Work Phone: Start: 02-26-2023 SARS Antigen (LFIA) DO Griselda [employer] Work Phone: Start: 11-15-2022 MR lumbar spine wo con DO Griselda Hastings Work Phone: Start: 11-15-2022 XR pre/post mri xray DO Griselda Hastings Work Phone: Start: 10-27-2022 Ct thorax w/contrast material Memo kapoor MD Work Phone: Start: 10-27-2022 Ct soft tissue neck w/contrast material Memo Cole MD Work Phone: Start: 10-27-2022 Blood count complete auto&auto difrntl wbc Memo Cole MD Work Phone: Start: 09-22-2022 Mri brain brain stem w/o w/contrast material Kelly Perez PA-C Work Phone: Start: 07-14-2022 CT of head without contrast DO Griselda meneses Work Phone: Start: 04-16-2022 Plain chest X-ray DO Griselda Hastings Work Phone: Start: 04-06-2022 CT cervical spine without contrast DO Griselda [employer] Work Phone: Start: 10-13-2021 Adult depression screening assessment Memo Cole MD Work Phone: Start: 10-14-2020 Adult depression screening assessment Asya Kumar RN Start: 09-13-2020 Plain chest X-ray Griselda [employer] Excision of melanoma Griselda Neisha Hastings Work Phone: Plan of Treatment Date Care Activity Detail Author Start: 2037 RSV Vaccine (1 - 1-dose 75+ series) RSV Vaccine (1 - 1-dose 75+ series) [facility] Start: 10-25-2026 Diabetes Screening Diabetes Screening [facility] Start: 11-07-2024 End: 11-07-2024 Follow-up encounter 11/07/2024 9:30 AM EDT Visit (SP) Office Hematology/Oncology [address] [address] Memo Cole MD [address] [address] [address] and lab Hematology/Oncolog y Comment on above: [address] and lab Start: 11-03-2024 End: 11-03-2024 Patient encounter procedure 11/03/2024 9:00 AM EDT Appointment Radiology Pet CT [address] [address] Ct Chest and neck with contrast and lab Radiology Pet CT Comment on above: Ct Chest and neck with contrast and lab Start: 11-01-2024 End: 11-01-2024 CBC W Auto Differential panel - Blood COMPLETE BLOOD COUNT AND DIFFERENTIAL Lab Routine 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) Expected: 11/01/2024 (Approximate), Expires: 11/01/2024 [facility] Comment on above: Expected: 11/01/2024 (Approximate), Expi res: 11/01/2024 Start: 11-01-2024 End: 11-01-2024 Comprehensive metabolic 2000 panel - Serum or Plasma COMPREHENSIVE METABOLIC PANEL Lab Routine 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) Expected: 11/01/2024 (Approximate), Expires: 11/01/2024 [facility] Comment on above: Expected: 11/01/2024 (Approximate), Expi res: 11/01/2024 Start: 11-01-2024 End: 12-01-2024 CT Chest W contrast IV CT CHEST W IVCON Radiology Routine 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) Expected: 11/01/2024 (Approximate), Expires: 12/01/2024 [facility] Comment on above: Expected: 11/01/2024 (Approximate), Expi res: 12/01/2024 Start: 11-01-2024 End: 12-01-2024 CT Neck W contrast IV CT NECK SOFT TISSUE W IVCON Radiology Routine 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) Expected: 11/01/2024 (Approximate), Expires: 12/01/2024 [facility] Work Phone: Comment on above: Expected: 11/01/2024 (Approximate), Expi res: 12/01/2024 Start: 10-06-2024 DIABETES SCREEN DIABETES SCREEN [facility] Start: 03-15-2024 DTaP/Tdap/Td Vaccines (2 - Td or Tdap) DTaP/Tdap/Td Vaccines (2 - Td or Tdap) [facility] Start: 03-15-2024 Urine microalbumin profile DTaP,Tdap,Td Vaccine (2 - Td or Tdap) [facility] Start: 03-03-2024 Influenza vaccination Influenza Vaccine (#1) [facility] Comment on above: Postponed from 02/16/2023 (Patient Refus ed) Start: 02-17-2024 Covid-19 Vaccine ( season) Covid-19 Vaccine ( season) [facility] Start: 02-17-2024 Covid-19 Vaccine ( season) Covid-19 Vaccine ( season) [facility] Start: 02-17-2024 Influenza vaccination [facility] Start: 09-28-2023 End: 09-28-2023 Patient encounter procedure 09/28/2023 10:15 AM EDT Office Visit [facility] [address] [place] [id number] [place] [address] Department [place] [address] [facility] Start: 09-05-2023 Ankle brachial pressure index [facility] Start: 08-30-2023 End: 08-30-2023 Patient encounter procedure 08/30/2023 9:40 AM EDT Office Visit [facility] [address] [place] [address] Nikole Thomason, NUCLEAR ENGINEER [address] [place] [address], [place] [address] [facility] Start: 07-26-2023 End: 07-26-2023 Patient encounter procedure 07/26/2023 1:30 PM EST Procedure Visit [facility] [address] [place] [address], [place] [address] Nikole Thomason, NUCLEAR ENGINEER [address] [place] [address], [place] [address] [facility] [address] Start: 07-19-2023 End: 07-19-2023 Clinical Support 07/19/2023 1:30 PM EST Clinical Support [facility] [address] [place] [address] Nikole Thomason, NUCLEAR ENGINEER [address] [place] [address], [place] [address] Cervical dystonia [facility] Comment on above: Cervical dystonia Start: 06-18-2023 Behavioral Health Screening Behavioral Health Screening [facility] Start: 05-07-2023 Pulse volume recorder pneumoplethysmography US arterial pvr rest [facility] Start: 05-07-2023 [facility] Start: 05-07-2023 [facility] Start: 04-25-2023 Pulse volume recorder pneumoplethysmography US arterial pvr rest [facility] Start: 02-16-2023 COVID-19 Vaccine ( season) COVID-19 Vaccine ( season) [facility] Start: 02-16-2023 Influenza vaccination INFLUENZA (Season Ended) [facility] Start: 2022 RSV patients and/or patients aged 60+ years (1 - 1-dose 60+ series) RSV patients and/or patients aged 60+ years (1 - 1-dose 60+ series) [facility] Start: 2022 RSV Vaccine (1 - 1-dose 60+ series) RSV Vaccine (1 - 1-dose 60+ series) [facility] Start: 10-30-2022 End: 10-30-2022 CBC W Auto Differential panel - Blood CBC + DIFF Lab Routine 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) Lung nodules Malignant neoplasm of head, face and neck (HCC) Expected: 10/30/2022 (Approximate), Expires: 10/30/2022 [facility] Work Phone: Comment on above: Expected: 10/30/2022 (Approximate), Expi res: 10/30/2022 Start: 10-30-2022 End: 10-30-2022 Comprehensive metabolic 2000 panel - Serum or Plasma COMP METABOLIC PANEL Lab Routine 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) Lung nodules Malignant neoplasm of head, face and neck (HCC) Expected: 10/30/2022 (Approximate), Expires: 10/30/2022 [facility] Work Phone: Comment on above: Expected: 10/30/2022 (Approximate), Expi res: 10/30/2022 Start: 10-30-2022 End: 11-29-2022 Ct soft tissue neck w/contrast material CT NECK SOFT TISSUE W IVCON Radiology Routine Malignant neoplasm of head, face and neck (HCC) Expected: 10/30/2022 (Approximate), Expires: 11/29/2022 [facility] Work Phone: Comment on above: Expected: 10/30/2022 (Approximate), Expi res: 11/29/2022 Start: 10-30-2022 End: 11-29-2022 Ct thorax w/contrast material CT CHEST W IVCON Radiology Routine Lung nodules Expected: 10/30/2022 (Approximate), Expires: 11/29/2022 [facility] Work Phone: Comment on above: Expected: 10/30/2022 (Approximate), Expi res: 11/29/2022 Start: 10-13-2022 Adult depression screening assessment DEPRESSION SCREENING [facility] Start: 07-17-2022 Aerobic Culture Aerobic Culture [facility] Start: 07-17-2022 Anaerobic Culture Anaerobic Culture [facility] Start: 07-17-2022 Microscopic observation [Identifier] in Unspecified specimen by Gram stain [facility] Start: 07-17-2022 Cerebrospinal fluid culture [facility] Start: 07-17-2022 End: 07-17-2022 [facility] Start: 07-17-2022 [facility] Start: 06-18-2022 DEPRESSION ASSESSMENT DEPRESSION ASSESSMENT [facility] Start: 04-16-2022 Plain chest X-ray XR ribs LT min 3V w [id number]* [facility] Start: 04-16-2022 XR Unspecified body region Views [facility] Start: 02-16-2022 Influenza vaccination [facility] Start: 10-14-2021 Adult depression screening assessment DEPRESSION SCREENING [facility] Start: 06-23-2021 COVID-19 VACCINE (3 - Booster for Pfizer series) COVID-19 VACCINE (3 - Booster for Pfizer series) [facility] Start: 06-18-2021 DEPRESSION ASSESSMENT DEPRESSION ASSESSMENT [facility] Start: 03-18-2021 COVID-19 VACCINE (3 - Booster for Pfizer series) COVID-19 VACCINE (3 - Booster for Pfizer series) [facility] Start: 2017 PROSTATE CANCER SCREENING DISCUSSION PROSTATE CANCER SCREENING DISCUSSION [facility] Start: 2017 Prostate specific antigen measurement Prostate Cancer Screening Discussion [facility] Start: 2012 SHINGRIX VACCINE (1 of 2) SHINGRIX VACCINE (1 of 2) [facility] Start: 2012 Zoster Vaccines (1 of 2) Zoster Vaccines (1 of 2) [facility] Start: 11-25-2007 COLOGUARD (FIT-DNA) COLOGUARD (FIT-DNA) [facility] Start: 11-25-2007 Colonoscopy COLONOSCOPY [facility] Start: 11-25-2007 COLORECTAL CANCER SCREENING COLORECTAL CANCER SCREENING [facility] Start: 11-25-[address] COLONOGRAPHY [facility] Start: 11-25-2007 FECAL OCCULT BLOOD FECAL OCCULT BLOOD [facility] Start: 11-25-2007 Screening for malignant neoplasm of colon [facility] Start: 11-25-2007 SIGMOIDOSCOPY SIGMOIDOSCOPY [facility] Start: 1997 Lipid panel Lipid Screening [facility] Start: 1997 LIPID SCREEN LIPID SCREEN [facility] Start: 1981 Urine microalbumin profile DTAP,TDAP,TD (1 - Tdap) [facility] Start: 1980 Anxiety Screening Anxiety Screening [facility] Start: 1980 Depression Screening Depression Screening [facility] Start: 1980 Diabetes mellitus screening Diabetes Screening [facility] Start: 1980 HEPATITIS C SCREENING HEPATITIS C SCREENING [facility] Start: 1980 Hepatitis C screening Hepatitis C Screening [facility] Start: 1980 HIV SCREENING HIV SCREENING [facility] Start: 1980 HIV screening HIV Screening [facility] Start: 1968 Pneumococcal Vaccine: Pediatrics (0 to 5 Years) and At-Risk Patients (6 to 64 Years) (1 of 2 - PCV) Pneumococcal Vaccine: Pediatrics (0 to 5 Years) and At-Risk Patients (6 to 64 Years) (1 of 2 - PCV) [facility] Start: 11-25-1963 MMR Vaccines (1 of 1 - Standard series) MMR Vaccines (1 of 1 - Standard series) [facility] Start: 1962 HIV screening HIV Screening [facility] Start: 1962 Lipid panel Lipid Panel [facility] Start: 1962 Screening for malignant neoplasm of colon [facility] Start: 1962 Yearly Adult Physical Yearly Adult Physical [facility] Ankle brachial pressure index [facility] Bacteria identified in Cerebral spinal fluid by Culture CSF CULT + STAIN Microbiology Routine NPH (normal pressure hydrocephalus) (HCC) Ordered: 09/13/2022 [facility] Work Phone: Comment on above: Ordered: 09/13/2022 Bacteria identified in Unspecified specimen by Aerobe culture [facility] Bacteria identified in Unspecified specimen by Anaerobe culture [facility] Cell count panel - C erebral spinal fluid CSF CELL COUNT Lab Routine NPH (normal pressure hydrocephalus) (HCC) Ordered: 09/13/2022 [facility] Work Phone: Comment on above: Ordered: 09/13/2022 Cell count, cerebros roberto fluid [facility] Enolase.neuron speci fic [Mass/volume] in Serum or Plasma by Immunoassay [facility] Fungus identified in Unspecified specimen by Culture [facility] Glucose [Mass/volume ] in Cerebral spinal fluid [facility] IR LP FOR DRAINAGE (PRESSURE) IR LP FOR DRAINAGE (PRESSURE) Radiology Routine NPH (normal pressure hydrocephalus) (HCC) Ordered: 09/13/2022 [facility] Work Phone: Comment on above: Ordered: 09/13/2022 Meningitis+Encephali tis pathogens DNA and RNA panel - Cerebral spinal fluid by JER with non-probe detection [facility] End: 10-20-2023 Mri brain brain stem w/o w/contrast material MRI BRAIN WO/W IVCON Radiology Routine 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HCC) 1 Occurrences starting 09/20/2022 until 10/20/2023 [facility] Work Phone: Comment on above: 1 Occurrences starting 09/20/2022 until 10/20/2023 Patient Education [facility] Work Phone: Patient referral [facility] Work Phone: Protein [Mass/volume ] in Cerebral spinal fluid [facility] Virus identified in Unspecified specimen by Culture [facility] Immunizations Immunization Date Immunization Notes Care Provider Fa cility 01-21-2021 COVID-19 Vaccine Pfi zer - Documentation Purposes Only Griselda Kuns Other [facility] 12-30-2020 COVID-19 Vaccine Pfi zer - Documentation Purposes Only Griselda Kuns Other [facility] 01-24-2016 KENALOG - 10 mg Griselda Kuns Other [facility] Other 01-27-2015 Toradol per 15 mg Griselda Kuns Other [facility] [place] Other 03-15-2014 tetanus toxoid, redu julienne diphtheria toxoid, and acellular pertussis vaccine, adsorbed Griselda Hastings Other [facility] [place] Other Payers Date Payer Category Payer Self-pay [id number] 2022 Private Health Insurance [id number] 2021 Private Health Insurance [facility] [employer] [id number] 2021-Present [phone] [address] [place] [address] PPO [id number]. [id number] 2021 Private Health Insurance 1.2 .[id number]. [id number] 2019 Medicaid [employer] [id number] 2019-Present [phone] [address] [place] [address] Medicaid [id number]. [id number] 2019 Medicaid [id number]. 1.13.159.2. [id number] 2019 Unknown [id number] 2019 Unknown 2019 Unknown [id number] 2.16.840.1.702918.19 1962 Unknown [id number] 2.16.840.1.064531.3.579.2. 693 1962 Unknown [id number] 2.16.840.1.205727.3.579.2. 182 1962 Unknown [id number] 2.16.840.1.526222.3.579.2. 182 1962 Unknown [id number] 2.16.840.1.460299.3.579.2. 196 1962 Unknown [id number] 2.16.840.1.196437.3.579.2. 196 1962 Unknown [id number] 2.16.840.1.744725.3.579.2. 196 1962 Unknown [id number] 2.16.840.1.472284.3.579.2. 196 1962 Unknown [id number] 2.16.840.1.288060.3.579.2. 196 1962 Unknown [id number] 2.16.840.1.679690.3.579.2. 196 1962 Unknown [id number] 2.16.840.1.426115.3.579.2. 196 1962 Unknown [id number] 2.16.840.1.898020.3.579.2. 1243 1962 Unknown [id number] 2.16.840.1.463750.3.579.2. 1243 1962 Unknown [id number] 2.16.840.1.550940.3.579.2. 1258 1962 Unknown [id number] 2.16.840.1.555402.3.579.2. 1258 1962 Unknown [id number] 2.16.840.1.949390.3.579.2. 1258 1962 Unknown [id number] 2.16.840.1.565150.3.579.2. 1258 1962 Unknown [id number] 2.16.840.1.556052.3.579.2. 1258 1962 Unknown [id number] 2.16.840.1.311946.3.579.2. 1258 1962 Unknown [id number] 2.16.840.1.375733.3.579.2. 1258 1962 Unknown [id number] 2.16.840.1.477041.3.579.2. 1258 1962 Unknown [id number] 2.16.840.1.087425.3.579.2. 1258 1962 Unknown [id number] 2.16.840.1.451732.3.579.2. 1258 1962 Unknown [id number] 2.16.840.1.388403.3.579.2. 1258 1962 Unknown [id number] 2.16.840.1.489384.3.579.2. 1258 1962 Unknown [id number] 2.16.840.1.752676.3.579.2. 1258 1962 Unknown [id number] 2.16.840.1.877237.3.579.2. 1258 1962 Unknown [id number] 2.16.840.1.678461.3.579.2. 1258 1962 Unknown [id number] 2.16.840.1.649482.3.579.2. 1258 1962 Unknown [id number] 2.16.840.1.897644.3.579.2. 1245 1962 Unknown [id number] 2.16.840.1.297215.3.579.2. 1245 1962 Unknown [id number] 2.16.840.1.745877.3.579.2. 1245 1962 Unknown [id number] 2.16.840.1.321831.3.579.2. 1244 1962 Unknown [id number] 2.16.840.1.369943.3.579.2. 1244 1962 Unknown [id number] 2.16.840.1.362615.3.579.2. 124 1962 Unknown [id number] 2.16.840.1.416572.3.579.2. 1244 1962 Unknown [id number] 2.16.840.1.721355.3.579.2. 1244 1962 Unknown [id number] 2.16.840.1.980985.3.579.2. 1244 1962 Unknown [id number] 2.16.840.1.925958.3.579.2. 1244 1962 Unknown [id number] 2..840.1.675216.3.579.2. 1244 1962 Unknown [id number] 2.840.1.028730.3.579.2. 1245 Private Health Insurance [id number] Unknown [id number] Unknown [id number] 2.16.840.1.297842.3.579.2. 531 Unknown [id number] 2.16840.1.380836.3.579.2. 531 Unknown [id number] 2.16.840.1.917691.3.579.2. 531 Unknown [id number] 2.16.840.1.205318.3.579.2. 531 Unknown [id number] 2.16.840.1.875036.3.579.2. 531 Unknown [id number] 2.16.840.1.842392.3.579.2. 531 Unknown [id number] 2.16.840.1.140991.3.579.2. 531 Unknown [id number] 2.16.840.1.263277.3.579.2. 531 Unknown [id number] 2.16.840.1.586073.3.579.2. 531 Unknown [id number] 2.16.840.1.659901.3.579.2. 531 Unknown [id number] 2.16.840.1.336260.3.579.2. 531 Social History Date Type Detail Facility Start: 04-29-2018 End: 10-18-2023 Tobacco smoking status NHIS Smoker (finding) [facility] Start: 1960 Sex Assigned At Male F [facility] Start: 10-16-2019 Tobacco smoking status NHIS Ex-smoker [facility] History of tobacco use Cigarette Smoker [facility] Start: 10-16-2019 End: 07-16-2022 Cigarettes smoked current (pack per day) - Reported 1.5 [facility] Start: 10-16-2019 End: 10-05-2023 Tobacco use and exposure Smokeless tobacco non-user [facility] Start: 10-14-2020 End: 09-28-2022 Alcohol intake Ex-drinker (finding) [facility] Start: 01-20-2019 History SDOH Alcohol Comment quit 2002 [facility] Start: 10-16-2019 Tobacco Comment quit smoking 01/2019 [facility] Start: 1960 Sex Assigned At Not on file C [facility] Start: 10-03-2021 End: 10-05-2023 Exposure to SARS-CoV-2 (event) Not sure [facility] Start: 07-16-2022 End: 07-03-2023 Sex Assigned At [facility] [place] Start: 03-10-2022 End: 03-20-2022 Exposure to SARS-CoV-2 (event) Unable to assess [facility] Work Phone: Start: 12-28-2022 End: 10-05-2023 Daily Smoker [facility] Start: 03-13-2023 Tobacco Comment 6-10 cigarettes/day [facility] Start: 09-20-2022 Gender identity Identifies as male gender (finding) [facility] Start: 09-20-2022 Sexual orientation Heterosexual (fin ding) [facility] Tobacco smoking status FLIS Tobacco smoking consumption unknown [facility] Work Phone: Start: 10-05-2023 Alcoholic beverage intake Lifetime non-drinker (finding) [facility] Work Phone: Adult Depression Screening Assessment 2 [facility] NEGATED: Highlighted rowStart: DAVEF History of tobacco use Passive smoker [facility] Work Phone: Medical Equipment Procedure Code Equipment Code Equipment Origin al Text Equipment Identifier Dates Angiogram, lower extremity, left Multiple peripheral artery stent, bare-metal [id number] FDA Start: 05-07-2023 Goals Date Patient Goal Desired Activity /State Clinical Notes 11-03-2008 to 11-02-2023 Patient InstructionsMemo Cole MD - 11/02/2023 9:45 AM EDT Note Date & Type Note Facility 11-02-2023 Note HNO ID: [id number] Author: MEMO COLE MD Service: ? Author Type: Physician Type: Progress Notes Filed: 11/03/2023 12:15 Note Text: NAME: Jovani Melendez [facility] NO.: [id number] DATE OF SERVICE: November 02, 2023 (Curtis) Some elements in this clinic note that are critical to medical decision making have been carefully reviewed and included from a prior clinic note dated: November 03, 2022 (Curtis). Referring Provider: Griselda Hastings DO Additional Clinicians involved in Jovani Melendez's care: Dr Kimberly Nichole ENT, Dr. Ibarra [place] surgery [facility] DIAGNOSIS: Head and neck cancer ASSESSMENT: 62 year old man who underwent selective right [...] 1.8 mm of invasive disease (Stage I, [id number], HPV+ oropharyngeal SCC).resected T1 N1 base of [...] in 1 year RTC 1 week after HPI: CASE HISTORY: Reverse Chronological Order 10/26/2023 - CT Neck/Chest: Neck: Expected post-treatment changes in the neck without evidence of recurrent disease in the primary site. No evidence of abnormal lymph nodes. Chest: New streaky scarring/discoid atelectasis in the bilateral lower lung mcgrath. Subcentimeter nodular opacities measuring less than 5 mm, stable since 04/08/20. No evidence of intrathoracic metastases. 07/18/2023 - MRI Brain and Neck. 1. Abnormal increased T2 signal in the naldo, right greater than left, worrisome for low-grade malignancy such as a glioma. Infectious or inflammatory process cannot be excluded, although this seems unlikely given the absence of enhancement. 2. No acute intracranial hemorrhage, infarction, mass effect or midline shift elsewhere in the brain 1. No acute abnormality. No focal disc herniation, spinal stenosis or impingement upon the cervical cord. 2. Multilevel degenerative changes with mild disc bulging and posterior osteophytic ridging, as described above. Prominent loss of disc height from disc degenerative disease at C5-C6, C6-C7 and T1-T2. 3. Neural foraminal stenosis at multiple levels, severe on the left at C6-C7. 10/06/2021 - CT Neck/Chest w/Cont: Neck: MODERATE DEGENERATIVE CHANGES INVOLVING THE CERVICAL SPINE. MODERATE ATHEROSCLEROSIS INVOLVING THE CAROTID BIFURCATIONS AND CAROTID SIPHONS. OTHERWISE, UNREMARKABLE CT NECK WITH CONTRAST. NO SIGNIFICANTLY ENLARGED LYMPH NODES. Chest: Left-sided subcentimeter pulmonary nodules, stable. Nonspecific, sclerotic foci involving bilateral ribs, unchanged. No substantial intrathoracic adenopathy is identified. 10/05/2021 - MRI Brain: [facility] There is T2 and T2 flair hyperintense [...] into the left side of the naldo. There appears to be a 2 mm focus of nodular enhancement at the apex of the right internal auditory canal. 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 Details within body of report: Mild diffuse age-related cortical atrophy. In the cerebral parenchyma: There are a few scattered punctate periventricular and subcortical white matter T2 and FLAIR hyperintense foci suggesting mild chronic microvascular ischemic change. Brainstem: There is T2 and T2 flair hyperintense signal predominantly to the right of midline in the naldo but also involving the left anterior naldo with extension to the right facial colliculus and base of the right middle cerebellar peduncle. No accompanying diffusion restriction is noted. There is no accompanying abnormal postcontrast enhancement. 10/08/2019 - CT Neck/Chest: No evidence for mass or adenopathy in the neck. Interval resolu (more content not included)... [facility] 11-02-2023 Instructions Memo Cole MD - 11/02/2023 10:13 AM EDT Scans and labs in 1 year RTC 1 week after documented in this encounter [facility] 11-02-2023 History of Presen t illness Narrative Images from the original note were not included. NAME: Jovani Melendez NO.: [id number] DATE OF SERVICE: November 02, 2023 (Curtis) Some elements in this clinic note that are critical to medical decision making have been carefully reviewed and included from a prior clinic note dated: November 03, 2022 (Curtis). Referring Provider: Griselda Hastings, DO Additional Clinicians involved in Jovani Melendez's care: Dr Kimberly Nichole ENT, Dr. 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 Only high-risk feature is the node being greater than 3 cm. He was advised at Tumor Board to undergo Radiation only. Active Smoking 06/19 ppd MRI done September 2021 for vision changes reports concern for possible low-grade glial tumor however, ongoing neurosurgical evaluation has resulted in plan for intervention to neck. PLAN: Scans and labs in 1 year RTC 1 week after HPI: CASE HISTORY: Reverse Chronological Order 10/26/2023 - CT Neck/Chest: Neck: Expected post-treatment changes in the neck without evidence of recurrent disease in the primary site. No evidence of abnormal lymph nodes. Chest: New streaky scarring/discoid atelectasis in the bilateral lower lung mcgrath. Subcentimeter nodular opacities measuring less than 5 mm, stable since 04/08/20. No evidence of intrathoracic metastases. 07/18/2023 - MRI Brain and Neck. 1. Abnormal increased T2 signal in the naldo, right greater than left, worrisome for low-grade malignancy such as a glioma. Infectious or inflammatory process cannot be excluded, although this seems unlikely given the absence of enhancement. 2. No acute intracranial hemorrhage, infarction, mass effect or midline shift elsewhere in the brain 1. No acute abnormality. No focal disc herniation, spinal stenosis or impingement upon the cervical cord. 2. Multilevel degenerative changes with mild disc bulging and posterior osteophytic ridging, as described above. Prominent loss of disc height from disc degenerative disease at C5-C6, C6-C7 and T1-T2. 3. Neural foraminal stenosis at multiple levels, severe on the left at C6-C7. 10/06/2021 - CT Neck/Chest w/Cont: Neck: MODERATE DEGENERATIVE CHANGES INVOLVING THE CERVICAL SPINE. MODERATE ATHEROSCLEROSIS INVOLVING THE CAROTID BIFURCATIONS AND CAROTID SIPHONS. OTHERWISE, UNREMARKABLE CT NECK WITH CONTRAST. NO SIGNIFICANTLY ENLARGED LYMPH NODES. Chest: Left-sided subcentimeter pulmonary nodules, stable. Nonspecific, sclerotic foci involving bilateral ribs, unchanged. No substantial intrathoracic adenopathy is identified. 10/05/2021 - MRI Brain: [facility] There is T2 and T2 flair hyperintense [...] into the left side of the naldo. There appears to be a 2 mm focus of nodular enhancement at the apex of the right internal auditory canal. 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 Details within body of report: Mild diffuse age-related cortical atrophy. In the cerebral parenchyma: There are a few scattered punctate periventricular and subcortical white matter T2 and FLAIR hyperintense foci suggesting mild chronic microvascular ischemic change. Brainstem: There is T2 and T2 flair hyperintense signal predominantly to the right of midline in the naldo but also involving the left anterior naldo with extension to the right facial colliculus and base of the right middle cerebellar peduncle. No accompanying diffusion restriction is noted. There is no accompanying abnormal postcontrast enhancement. 10/08/2019 - CT Neck/Chest: No evidence for mass or [...] upper lobes, suggestive of a respiratory bronchiolitis. 01/30/2019 - Neck dissection at [facility] Base of tongue did note a squamous cell carcinoma 1.8 mm, which was HPV positive. 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 The involved node had 4.5 cm of invasive disease. 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 12/20/2018 - PET/CT: A hypermetabolic right level IIA lymph node, suspicious for malignancy. There is nonspecific asymmetric right tonsillar FDG activity, suggest direct visualization. Known 1 cm part-solid left upper lobe nodule demonstrate minimal FDG uptake, cannot exclude low-grade malignancy. No FDG avid hilar or mediastinal lymphadenopathy. Minimal focal FDG uptake in a normal sized prevascular lymph node, could be secondary to inflammation. 11/12/2017 - CT Chest: Shows enlarging right jugulodigastric lymph node 2.7 x 1.7 x 1.8 cm. Moderate mucosal thickening of the right maxillary sinus with right maxillary sinusitis. Also noted irregular suspicious left upper lobe pulmonary nodule 6 mm. Updated Visit, November 02, 2023: Had RSV in April from his grandson. He felt like he was dying while his grandson was running around with a runny nose. Reviewed scans and no evidence of disease Got to [place] 2 years ago. Updated Visit, November 03, 2022: 61 yo [...] 2020: Doing well, still smokes, works at [employer]. Reviewed scans and there is no evidence [...] left upper lobe pulmonary nodule 6 mm. REVIEW OF SYSTEMS Per HPI and otherwise negative by full review of organ systems. ECOG PERFORMANCE STATUS: 0 PHYSICAL EXAMINATION: Vitals: BP 130/76 Pulse 72 Temp (Src) 97.7 (Temporal) Resp 16 Ht 5' 7.165 (1.71m) Wt 175 lb 11.3 oz (79.7kg) SpO2 99% BMI 27.38 kg/(m^2). Body surface area is 1.94 meters squared. Exam limited to gross visualization where appropriate. Gen.: This is an age-appropriate patient in no acute distress. Head: Appears atraumatic with no visible lesions. Eyes: Pupils equally round and reactive to light, extraocular muscles are intact. Neck: Supple. Respiratory: Appears to be respiring comfortably. Neurologic: Nonfocal to gross visualization. Alert and oriented 3. Psychiatric: No evidence of inappropriate anxiety or depression. Skin: Visible areas of skin without rash, lesions, wounds or petechiae. ALLERGIES: ALLERGIES Allergen Reactions Keflex [Cephalexin] Hives MEDICATIONS: amLODIPine (NORVASC) 10 mg tablet Take 10 mg by mouth once daily. atorvastatin (LIPITOR) 10 mg tablet Take 1 tablet by mouth once daily. lisinopril (ZESTRIL) 10 mg tablet Take 1 tablet by mouth every afternoon. HYDROcodone-acetaminophen (NORCO) 5-325 mg per tablet take 1 tablet orally daily NEEDED FOR PAIN MUST LAST 30 DAYS ezetimibe (ZETIA) 10 mg tablet Take 10 mg by mouth. clotrimazole-betamethasone (LOTRISONE) cream clopidogrel (PLAVIX) 75 mg tablet Take 75 mg by mouth. pravastatin (PRAVACHOL) 40 mg tablet Take 40 mg by mouth. vortioxetine (TRINTELLIX) 5 mg tablet Take by mouth every 24 hours. hydrOXYzine HCl (ATARAX) 25 mg tablet take 1 to 2 tablets by mouth at bedtime if needed mirtazapine (REMERON) 15 mg tablet Take by mouth daily at bedtime. montelukast (SINGULAIR) 10 mg tablet Take 10 mg by mouth daily at bedtime. tiZANidine (ZANAFLEX) 4 mg tablet Take 4 mg by mouth at bedtime as needed. iv contrast (will be provided with radiology [...] in the CT contrast administration guidelines link. citalopram (CELEXA) 40 mg tablet Take 40 mg by mouth once daily. Multivitamin capsule Take 1 capsule by mouth [...] in the CT contrast administration guidelines link. LABORATORY VALUES: WBC (k/uL) Date Value 10/26/2023 8.78 RBC (m/uL) Date Value 10/26/2023 4.50 Hemoglobin (g/dL) Date Value 10/26/2023 14.4 Hematocrit (%) Date Value 10/26/2023 42.6 MCV (fL) Date Value 10/26/2023 94.7 MCH (pg) Date Value 10/26/2023 32.0 MCHC (g/dL) Date Value 10/26/2023 33.8 RDW-CV (%) Date Value 10/26/2023 13.8 Platelet Count (k/uL) Date Value 10/26/2023 314 MPV (fL) Date Value 10/26/2023 10.2 Glucose (mg/dL) Date Value 10/26/2023 89 BUN (mg/dL) Date Value 10/26/2023 16 Creatinine (mg/dL) Date Value 10/26/2023 1.01 Sodium (mmol/L) Date Value 10/26/2023 141 Potassium (mmol/L) Date Value 10/26/2023 4.0 Chloride (mmol/L) Date Value 10/26/2023 106 (H) CO2 (mmol/L) Date Value 10/26/2023 27 Protein, Total (g/dL) Date Value 10/26/2023 6.4 Albumin (g/dL) Date Value 10/26/2023 4.3 Calcium, Total (mg/dL) Date Value 10/26/2023 9.9 Alkaline Phosphatase (U/L) Date Value 10/26/2023 75 Bilirubin, Total (mg/dL) Date Value 10/26/2023 0.5 AST (U/L) Date Value 10/26/2023 9 (L) ALT (U/L) Date Value 10/26/2023 10 DIAGNOSIS: (C76.0) 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00 Types: Cigarettes Smokeless tobacco: Never Tobacco comments: quit smoking 01/2019 Vaping Use Vaping Use: Never used Substance Use Topics Alcohol use: Not Currently Comment: quit 2001 Drug use: Never FAMILY HISTORY Problem Relation Age of Onset Cancer Father Bladder cancer, Larynx cancer Cancer Paternal Grandfather cancer I spent a total of 30 minutes on the date of the service which included preparing to see the patient, [id number] patient care, completing clinical documentation, performing a medically appropriate examination, counseling and educating the patient/family/caregiver, ordering medications, tests, or procedures, independently interpreting results (not separately reported), communicating results to the patient/family/caregiver, and care coordination (not separately reported). Memo Cole MD, CPE Hematology and Oncology Services Provided at: [place], [place] Scribe Attestation: This note was scribed by Tanvi Salazar on November 02, 2023 under the direction and supervision of Dr. Memo Cole. I attest that all of the information documented is correct to the best of my knowledge. Provider Attestation: I, Memo Cole MD, attest that all information documented by the above scribe is correct, and was supervised by me and under my direction. CC: Griselda Hastings, [address] [place] [phone] [address] [facility]. Nichole ENT Dr. Ibarra [facility]. documented in this encounter [facility] 10-29-2023 Evaluation note Authored October 29, 2023 10:32 am Sooner if needed, the ER if concerns,The above note written by Shilpi Lantigua LPN acting as human recorder, note dictated by Dr. Griselda Hastings [facility] Work Phone: 1(234) 103-778105-10-2024 NoteHNO ID: [id number] Author: DEVIN DOYLE RT(R) Service: ? Author Type: Technologist Type: [...] PATIENT PRESENTS WITH AN IMPLANTABLE OR ATTACHED MOLD MOVER: No RADIOLOGY DEPARTMENT: CT; Exam(s) Completed: Chest and Neck PERIPHERAL IV DATA: Site assessment: Clean,Dry and Intact, Site disposition Discontinued SIGNED BY: RT Craig(R) October 26, 2023 10:07 [facility]05-10-2024 NoteHNO ID: [id number] Author: CURTIS DA SILVA RN Service: ? [...] Melendez DATE: October 26, 2023 TIME: 9:30 [facility]05-10-2024 History of Present illness Narrative* Curtis Da Silva RN - 10/26/2023 9:45 AM EDT Radiology Service Progress Note DATE OF [...] Value Ref Range Status 10/27/2022 95 >=60 mL/min/1.73m Final Comment: Estimated Glomerular Filtration Rate (eGFR) is calculated using the 2020 CKD-EPI creatinine equation. This equation utilizes serum creatinine, sex, and age as parameters. The creatinine assay has traceable calibration to isotope dilution- mass spectrometry. Refer to KDIGO guidelines for clinical interpretation. In patients with unstable renal function, e.g. those with acute kidney injury, the eGFRmay not accurately reflect actual GFR. eGFR- Date Value Ref Range Status 10/08/2020 >60 Final P.O.C.T. RESULTS: POC done: Yes, See Lab Tab October 26, 2023 TREATMENT: N/A IV SITE: Ambulatory: A peripheral IV was started in the Left antecubital site with a Angio cath: 20gauge. IV SITE APPEARANCE: Clean,Dry and Intact SIGNATURE: Curtis Da Silva RN PATIENT NAME: Jovani Melendez DATE: October 26, 2023 TIME: 9:30 AM * Devin Dolye RT(R) - 10/26/2023 9:45 AM EDT Radiology Service Progress Note PATIENT NAME: Jovani Melendez DATE OF SERVICE: October 26, 2023 TIME: 10:07 AM PATIENT IDENTITY VERIFICATION COMPLETED USING TWO (2) IDENTIFIERS: Name and Date of confirmedby patient verbally. FALL SCREENING: Has the patient had 2 falls in the last year or 1 fall with injury or currently using an Ambulatory Assistive Device (Walker, Cane, Wheelchair, Crutches, etc.)? No PATIENT GENDER DATA: Male PATIENT RELEVANT IMPLANT DATA REVIEWED: Not Applicable PATIENT PRESENTS WITH AN IMPLANTABLE OR ATTACHED MOLD MOVER: No RADIOLOGY DEPARTMENT: CT; Exam(s) Completed: Chest and Neck PERIPHERAL IV DATA: Site assessment: Clean,Dry and Intact, Site disposition Discontinued SIGNED BY: RT Craig(R) October 26, 2023 10:07 AM [facility] History of Present illness Narrative* Ignacia Jack MD - 10/05/2023 9:30 AM EDT Patient ID: Jovani Melendez is a 62 y.o. male. Referring Physician: No referring provider defined for this encounter. Primary Care Provider: Griselda Hastings DO Subjective History of Present Ilness: 62 y.o. presents in neurosurgical consultation from [facility] for cervical stenosis.C/o neck pain and LUE pain, numbness and weakness down to hand for 2 years. SawNeurosurgeon at and has had 2 spinal taps with some improvement. Went to [facility] to be assessed for hydrocephal;us and was told he does not have hydrocephalus. He saw Dr. Lara at the [facility]. Also pain behind left eye. No RUE [...] issues. 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 The ROS is as per documentation in the [facility]. Objective BSA: 1.93 meters squared Ht 1.722 [...] +Franco's on left, +drift in LUE, very mildgait unsteadiness and loss of balance. Psychiatric: Attention [...] review and discuss the above; 50% of whichor more was dedicated to counseling. Ignacia Jack MD documented [facility] Work Phone: 1(754) 994-272704-19-2024 Instructions* Patient Instructions* Adriana Thomas RN - 10/05/2023 9:[address] Jack will present your case at Tumor Board next Sunday. Someone from the office will call you that day or about your plan. Please call us with any questions or concerns at [phone] opt. 5, opt. 2 For scheduling concerns please call [phone] option 1 documented in this encounterJoint [facility] Hospital Work Phone: 1(201) 941-350202-28-2024 Evaluation note* Author Curtis Covarrubias [facility] Authored August 15, 2023 5:19pm The above note written by Serafin Flood acting as human recorder, note dictated by Dr. Griselda Hastings . [facility] Work Phone: 1(275) 577-630202-28-2024 Evaluation note* Author Curtis Covarrubias [facility] Authored August 15, 2023 5:19pm The above note written by Serafin Flood acting as human recorder, note dictated by Dr. Griselda Hastings . Author Shilpi Lantigua [facility] Authored October 29, 2023 10:32 am Sooner if needed, the ER if concerns,The above note written by Shilpi Lantigua LPN acting as human recorder, note dictated by Dr. Griselda Hastings [facility] Work Phone: 1(510) 993-690501-15-2024 Evaluation note* Encounter Date Diagnosis Assessment Notes [...] continue to follow with them as scheduled. [facility] Other 12-14-2023 Evaluation note* Encounter Date Diagnosis Assessment Notes Treatment Notes Treatment Clinical Notes May, PAD (peripheral artery disease) (ICD-10 - I73.9) Patient recently had angioplasty for occlusion of right iliac artery that was discovered by apprentice funeral director. He has been doing well since the [...] work before I provide him that consent. [facility] Other 12-13-2023 Evaluation note* Encounter Date Diagnosis [...] I will see him in 3 months. [facility] Other 11-28-2023 Evaluation note* Encounter Date Diagnosis Assessment Notes Treatment Notes Treatment Clinical Notes Apr, Claudication of both lower extremities (ICD-10 - I73.9) 62 yr old male medical history significant for squamous cell, status post head and neck surgery with tongue resection and lymph node dissection in 2019, hypertension, hyperlipidemia, osteoarthritis of the cervical spine who presents as a referral by Dr Griselda Hastings for dizziness and brain fog. Pt reports [...] 3 months Apr, Lightheadedness (ICD-10 - R42) [facility] Other [id number] Procedure [facility]11-16-2023 Evaluation note* Encounter Date Diagnosis Assessment [...] questions were addressed and consent was obtained. [facility] [place] Other 11-14-2023 Evaluation note* Encounter Date Diagnosis [...] M54.2) The patient is now following with [facility]. He states he has an upcoming cervical epidural scheduled. 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 Apr, PAD (peripheral artery disease) (ICD-10 - I73.9) Arterial studies ordered by apprentice funeral director indicating peripheral artery disease. The patient does report lower extremity pain and heaviness and I recommend it would be beneficial to consult with a vascular specialist. The patient is in agreement, therefore a referral was initiated. A CTA has been ordered by neurologist , appointment pending [facility] scheduling. Apr, Hyperlipidemia (ICD-10 - E78.5) Blood [...] vocies understanding. We will continue to monitor. [facility] Other 10-26-2023 Evaluation note* Encounter Date Diagnosis Assessment Notes Treatment Notes Treatment Clinical Notes Mar, Claudication (ICD-10 - I73.9) [facility] Other 10-25-2023 Evaluation note* Encounter Date Diagnosis Assessment Notes Treatment Notes Treatment Clinical Notes Mar, Claudication of both lower extremities (ICD-10 - I73.9) 62 yr old male medical history significant for squamous cell, status post head and neck surgery with tongue resection and lymph node dissection in 2019, hypertension, hyperlipidemia, osteoarthritis of the cervical spine who presents as a referral by Dr Griselda Hastings for dizziness and brain fog. Pt reports [...] 4 weeks Mar, Lightheadedness (ICD-10 - R42) [facility] Other 10-24-2023 Evaluation note* Encounter Date Diagnosis Assessment Notes Treatment Notes Treatment Clinical Notes Mar, Elevated blood pressure reading (ICD-10 - R03.0) [facility] Other 09-28-2023 Evaluation note* Encounter Date Diagnosis [...] infection. Feb, Burning sensation (ICD-10 - R20.8) [facility] Other 09-21-2023 Evaluation note* Encounter Date Diagnosis [...] index finger. We will continue to monitor. [facility] Other 07-13-2023 Hospital Discharge instructions Diet Plan/Instructions [...] * Discharge Physician: : Lima Joseph MD ([id number]) - Anesthesiology, Pain Management * Discharge Physician Phone: : [phone] [facility] [address], [place] [phone] Special Plan/Instructions for Discharge from 12/27/2022 10:26 [...] sent to the office to be completed. [facility] Other 05-12-2023 History of Present illness Narrative* Devin Doyle, RT(R) - 10/27/2022 10:45 AM EDT RADIOLOGY SERVICE PROGRESS NOTE SERVICE DATE: 10/27/2022 [...] Value Ref Range Status 10/27/2022 95 >=60 mL/min/1.73m Final Comment: Estimated Glomerular Filtration Rate (eGFR) is calculated using the 2020 CKD-EPI creatinine equation. This equation utilizes serum creatinine, sex, and age as parameters. The creatinine assay has traceable calibration to isotope dilution- mass spectrometry. Refer to KDIGO guidelines for clinical interpretation. In patients with unstable renal function, e.g. those with acute kidney injury, the eGFRmay not accurately reflect actual GFR. eGFR- Date [...] with PATIENT DISCHARGED TO: Ambulatory patient, left PA department area. A Diagnostic radioactive procedure has taken place, with no further precautions necessary other than routine body substance precautions. More information regarding radiation safety can be found usingthis link: [email or web address] SIGNATURE: TABITHA Srinivasan) PATIENT NAME: Jovani Melendez DATE: October 27, 2022 TIME: 11:55 AM PAGER/CONTACT #: documented in this encounterAshtabula [facility] Center04-07-2023 History of Present illness Narrative* TABITHA Kim) - 09/22/2022 3:00 PM EDT Radiology Service [...] DEPARTMENT: MR; Exam(s) Completed: Head: IAC/CPA SIGNATURE: TABITHA Kim) PATIENT NAME: Jovani Melendez DATE: September 22, 2022 TIME: 2:39 PM documented in this encounterAshtabula County Medical Center04-05-2023 Miscellaneous Notes* Telephone Encounter - Akash Menezes [...] return call ? Yes documented in this encounterAshtabula County Medical Center03-29-2023 Instructions* Patient Instructions* Kelly Perez PA-C - [...] perform on same dariusz. documented in this encounterAshtabula County Medical Center03-29-2023 Nurse Note* Antonia Tripathi MA - 09/13/2022 10:55 AM EDT Additional intake questions: Has the patient had fever, nausea, vomiting, diarrhea, constipation, fatigue for > 1 week? Yes, diarrhea ( 3 times in last 24 hours), fatigue, and Provider Notified Does the patient have a decreased appetite? No Does patient want to see a Table Lever Operator? No (yes to any of above [...] By: Antonia Tripathi MA documented in this encounterAshtabula County Medical Center03-29-2023 History of Present illness Narrative* Kelly Perez PA-C - 09/13/2022 10:44 AM EDT This note was created using NoteWriter. Subjective [...] or pronator drift. Coordination: Romberg sign negative. Fysvvi-Uwps-Nvrufw Test normal. Gait: Gait abnormal. Comments: Slightly [...] which included preparing to see the patient, [id number] patient care, completing clinical documentation, obtaining and/or reviewing separately obtained history, performing a medically appropriate examination, counseling and educating the pat ient/family/caregiver, ordering medications, tests, or procedures, communicating with other HCPs (not separately reported), independently interpreting results (not separately reported), communicatingresults to the patient/family/caregiver, and care coordination (not separately reported). documented in this encounterAshtabula County Medical Center03-16-2023 Evaluation note* Encounter Date Diagnosis Assessment Notes [...] her mid twenties. He will see the NUCLEAR ENGINEER at Dr. Cadena's office today, and will see the [facility] 09/13/22. I do feel pt needs his FMLA extended until 12/16/22. I encouraged him to continue to follow with these doctors, and we will continue to monitor. [facility] Other 02-14-2023 Evaluation note* Encounter Date Diagnosis [...] pain medication and fever reducers as needed. [facility] Other 01-11-2023 Evaluation note* Encounter Date Diagnosis Assessment Notes Treatment Notes Treatment Clinical Notes Jun, Other complicated headache syndrome (ICD-10 - G44.59) [facility] Other 12-09-2022 Evaluation note* Encounter Date Diagnosis [...] check on him again in 1 month. [facility] Other 10-30-2022 Hospital Discharge instructions Additional Instructions [...] week to see how you are doing. [facility] Work Phone: 1(995) 884-486710-10-2022 Miscellaneous Notes* Telephone Encounter - Memo Cole MD - 03/27/2022 3:54 PM EDT Good with me * Telephone Encounter - Asya Reynolds RN - 03/27/2022 2:17 PM EDT Informed patient of your recommendations. He states that he is seeing neurology in [place] and they do not feel he needs to see NS at this point. They are treating him for occipital neuralgia currently. Patient plans to cancel NS appointment. Asya Reynolds RN * Telephone Encounter - Memo oCle MD - 03/27/2022 2:00 PM EDT I don't quite remember what the discussion was - and Frederi is gone - I think still worthwhile seeing NS. - not sure what prompted the call 5 months later.... * Telephone Encounter - Asya Reynolds RN - 03/27/2022 12:13 PM EDT Patient got a text over the weekend about an appointment with a [facility] neurosurgeon. He has not seen you since 10/2021. He states st that time you did not see the need for a neurosurgeon as his tumor wastoo small. Now he all of the sudden has an appointment with this [facility] neurosurgeon and is confused. Can you review and advise as to this appointment with the neurosurgeon. Asya Reynolds RN documented in this encounterAshtabula County Medical Center09-29-2022 Miscellaneous Notes* Telephone Encounter - Pamela Nascimento APRN.LUCIO - 03/16/2022 2:51 PM EDT Time Frame: Next available Provider: Intra-axial neurosurgeon & Neuro-Oncology (same day) Referring: Memo Cole MD Please instruct patient to hand carry/ upload images prior to appt Dx: Low grade glioma Patient: Jovani Melendez Address: Jovani Melendez [id number] [place], [place] [address] Per Triage: Jovani Melendez is a 61 year old male that requests evaluation of previously diagnosed possible low grade glioma. Patient expectations: Second opinion Tumor Specifics: Location: brain Previous Evaluations: MRI w/wo contrast (10/05/21): 10/05/2021 MRI Brain [facility] Impression: 1. There is T2 and T2 [...] 16, 2022 * Telephone Encounter - Ivelisse Guan Coord - 03/16/2022 12:26 PM EDT MD Memo Gomez MD Future Order Information Expires 10/13/22 Associated Diagnoses Glioma of brain (HCC) [C71.9] Reason for Exam Priority: Routine Dx: Glioma of brain (HCC) [C71.9 (ICD-10-CM)] Order Questions Question Answer [facility] Brain Tumor [facility] Epic access? Yes documented in this encounterAshtabula County Medical Center09-29-2022 Evaluation note* Encounter Date Diagnosis Assessment Notes [...] see if this gives him some relief [facility] Other 08-15-2022 Evaluation note* Encounter Date Diagnosis [...] work but to also discuss with Dr. aCdena to make sure we are all on the same page. 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 We are awaiting for the results [...] again next week. We are awaiting for [facility] to fax over the consult and MRI results. Jan, Neck pain (ICD-10 - M54.2) The patients neck pain is persistant but the headache has improved with a medication change. Discussed with Dr. Cadena his persistent neck pain, may need MRI of his neck and/or EMG. Due to his multiple other medications did hold off on any pain medications. 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 Espinal but the patient got no where. The patient voices interest in seeing Dr. Cadena since he is coming [facility]. I am agreeable to refer the patient [...] blood pressure was elevated upon check in. [facility] Other 06-20-2022 Evaluation note* Encounter Date Diagnosis [...] rule out other causes of his symptoms. [facility] Other 05-24-2022 Evaluation note* Encounter Date Diagnosis [...] will complete the necessary medical disability forms. [facility] [place] Other 05-17-2022 Evaluation note* Encounter Date Diagnosis Assessment Notes Treatment Notes Treatment Clinical Notes October, Glioma of brain (ICD-10 - C71.9) Patient has consulted neurosurgeon, Dr. Narayan, and he is now referring on to Dr. [facility]ig[facility] for [facility]. Reviewed consult note from [...] this medication. Will continue to follow up [facility] Other 05-12-2022 History of Present illness Narrative* Memo Cole MD - 10/27/2021 5:05 PM EDT Images from the original note were not included. NAME: Jovani Melendez [facility] NO.: [id number] DATE OF SERVICE: October 27, 2021 Some elements in this clinic note that are critical to medical decision making have been carefully reviewed and included from a prior clinic note dated: October 13, 2021 Referring Provider: Griselda Hastings, Additional Clinicians involved in Jovani Melendez's care: Dr Kimberly Nichole ENT, Dr. 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 Dr. Nichole ENT Dr. Ibarra [place] surgery [facility]. documented in this encounterAshtabula County Medical Center05-09-2022 Evaluation note* Encounter Date Diagnosis Assessment Notes [...] him on to see Dr. Jonny Vigil. [facility] Other 05-04-2022 Miscellaneous Notes* Telephone Encounter - Haily Jovel [facility] - 10/19/2021 12:56 PM EDT [facility] Neuro Office spoke with Leslee. She states they have received patient records/referral and have patient scheduled to see Dr Narayan on 10/24. Haily Issa * Telephone Encounter - Asya Gramajo [facility] - 10/18/2021 10:34 AM EDT Records faxed. * Telephone Encounter - Haily Jovel [facility] - 10/13/2021 12:24 PM EDT Noelle: Information ready for you. Haily Jovel Pss * Telephone Encounter - Antonia Mcguire - 10/13/2021 10:33 AM EDT Referral to neurosurgery - Dr. Narayan or [facility] Noelle/Layo: Can you please refer patient and follow up? Thanks! Antonia Mcguire documented in this encounterAshtabula County Medical Center04-28-2022 History of Present illness Narrative* Memo Cole MD - 10/13/2021 10:19 AM EDT Images from the original note were not included. NAME: Jovani Melendez [facility] NO.: [id number] DATE OF SERVICE: October 13, 2021 Some elements in this clinic note that are critical to medical decision making have been carefully reviewed and included from a prior clinic note dated:October 14, 2020 Referring Provider: Griselda Hastings, DO Additional Clinicians involved in Jovani Melendez's care: Dr Kimberly Nichole ENT, Dr. 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 Reviewed scans and there is no evidence [...] adenopathy is identified. 4. 10/05/2021 MRI Brain [facility] Impression: 1. There is T2 and T2 [...] node had 4.5 cm of invasive disease. . 12/23/18 Biopsy FNA R jugulodigastric node confirms [...] head and neck (HCC) Memo Cole MD, [place], [place] CC: Griselda Hastings, DO [address] [phone] [address] Harris [facility] ENT. Dr. Nichole ENT Dr. Ibarra [place] surgery [facility]. documented in this encounterAshtabula County Medical Center04-21-2022 Miscellaneous Notes* Telephone Encounter - Memo Cole MD - 10/06/2021 4:05 PM EDT Thank you will do - if he has persisiting symptoms, I will send him over. Can we get images imported please? * Telephone Encounter - Asya Kumar RN - 10/06/2021 2:43 PM EDT Received call from Winsome at Dr Hastings office stating pt had brain MRI done and they faxed over results. Dr Hastings would like Dr Mcgregor to review results and discuss things with pt at his appt next week. MRI shows mass and Dr Hastings thinks pt may need referral to [facility] but wanted to let Dr Mcgregor review and decide next steps. Asya Kumar RN documented in this encounterAshtabula County Medical Center04-04-2022 Evaluation note* Encounter Date Diagnosis Assessment Notes [...] to continue with monitoring diet and exercise. [facility] Other 03-28-2022 Evaluation note* Encounter Date Diagnosis Assessment Notes Treatment Notes Treatment Clinical Notes Aug, Anxiety and depression (ICD-10 - F41.8) [facility] Other 01-13-2022 Evaluation note* Encounter Date Diagnosis Assessment Notes Treatment Notes Treatment Clinical Notes Jun, Sinusitis (ICD-10 - J32.9) I did prescribe the above medications and work note provided. [facility] [place] Other 01-12-2022 Evaluation note* Encounter Date Diagnosis Assessment Notes Treatment Notes Treatment Clinical Notes Jun, Sinus pressure (ICD-10 - J34.89) Patient advised of negative results. Encouraged him to call if symtpoms persist or worsen, he verbalized understanding. [facility] [place] Other 11-02-2021 Evaluation note* Encounter Date Diagnosis Assessment Notes Treatment Notes Treatment Clinical Notes Apr, Sinus congestion (ICD-10 - R09.81) [facility] Other 10-28-2021 Evaluation note* Encounter Date Diagnosis [...] Encouraged patient to continue with their efforts. [facility] [place] Other 12-01-2016 History general Narrative - Reported* [...] surgery 02/04 19 Hospitalization History see above [facility] Other 12-01-2016 History general Narrative - Reported* [...] 02/04 19 [facility] 11/07/2021 Hospitalization History see above [facility] [place] Other 12-01-2016 History general Narrative - Reported* [...] 02/04 19 Surgical History Spinal tap [facility] 11/07/2021 Hospitalization History see above [facility] [place] Other 12-01-2016 History general Narrative - Reported* [...] dissection 01/2019 Surgical History Spinal tap at [facility] 11/07/2021 Hospitalization History see above [facility] [place] Other 12-01-2016 History general Narrative - Reported* [...] dissection 01/2019 Surgical History Spinal tap at [facility] 11/07/2021 Surgical History LP at [facility] 08/2022 Hospitalization History see above [facility] [place] Other 12-01-2016 History general Narrative - Reported* [...] dissection 01/2019 Surgical History Spinal tap at [facility] 11/07/2021 Surgical History LP at [facility] 08/2022 Hospitalization History see above [facility] [place] Other 12-01-2016 History general Narrative - Reported* [...] dissection 01/2019 Surgical History Spinal tap at [facility] 11/07/2021 Surgical History LP at [facility] 08/2022 Surgical History angioplasty right iliac artery 04/2023 Hospitalization History see above [place] [email or web address] Other [id number] History of Present illness Narrative* The patient [...] He saw Dr. Ba a neurologist in [facility]. * He describes his vision as seeing 1-1/2 . He describes this does not seem quite to but finding a time lab between moving his eyes and having the visual change. 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 Malignant neoplasm of head, face, and neck Lung nodules Other nonspecific abnormal finding of lung field Malignant neoplasm of head, face and neck (HCC) Malignant neoplasm of head, face, and neck documented in this encounter [facility] CenterEvaluation noteNo InformationNortSurgical Special[facility] at [facility] [employer] Other Evaluation noteNo assessment information available [facility] Work Phone: Evaluation note* Diagnosis Onset Date Resolution Status Migraine acute [facility] Work Phone: Evaluation note* Diagnosis NPH (normal pressure hydrocephalus) (HCC)- Primary Idiopathic normal pressure hydrocephalus (INPH) [facility] encounter [facility]* Diagnosis 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HCC)- Primary NPH (normal pressure hydrocephalus) (HCC) Idiopathic normal pressure hydrocephalus (INPH) documented in this encounter [facility] note* Diagnosis 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HCC) NPH (normal pressure hydrocephalus) (HCC) Idiopathic normal pressure hydrocephalus (INPH) documented [facility] this encounter [facility]* Diagnosis Onset Date Resolution Status Anxiety and depression acute Essential hypertension acute Hyperlipidemia acute Osteoarthritis cervical spine acute PAD (peripheral artery disease) acute 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 Griselda Hastings. 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) Malignant neoplasm of head, face, and neck [facility] Additional Instructions Obtain Elsy pot and [facility]: Summary Purpose Family History Unknown [...] brother Hypertension Unknown sister Heart disease Unknown Relationship Condition Age at Onset Recorded Date/T yolie brother Hypertension Unknown sister Heart disease Unknown father Malignant neoplasm Unknown Cerebrovascular accident (CVA) Unknown mother Heart disease Unknown Advance Directives Advance Directive Response Recorded Date/ Time Advance Directives No December 10 8:00pm Advance Directive Response Recorded Date/ Time Advance Directives No December 10 7:00pm Advance Directive Response Recorded Date/ Time Advance Directives No July 07, 2023 8:27am Advance Directive Response Recorded Date/ Time Advance Directives No July 07, 2023 9:27am Documents on File Type Date Recorded Patient Punch Press Feeder Expl anation Living Will 10/05/2023 9:39 AM [...] Anxiety and depression Brain mass Essential hypertension Chief Complaint I70.213 3m F/U; PAD; MARK's B/L legs at 11:30am HBP J01.90 R05.8 6 weeks 2 month f/u 1 month Reason for Visit Cardiac arrhythmia Hyperlipidemia Cardiac arrhythmia Essential hypertension Hyperlipidemia Anxiety and depression Brain mass Cervical spondylosis Essential hypertension Anxiety and depression Brain mass Cervical spondylosis Chief Complaint 1 month 2 month Reason for Visit Anxiety and depressi on Brain mass Cervical spondylosis Cervical spondylosis History of COVID-19 Nicotine dependence with current use SCC (squamous cell carcinoma) Assessments No Assessments Information Available Reason for Referral Specialty Diagnoses / Procedures Referred By Contac t Referred To Contact Neurosurgery Diagnoses Glioma of brain (HCC) Procedures CONSULT TO NEUROSURGERY OFFICE/OUTPATIENT [facility] 60-74 MINUTES Memo Cole MD [address] [facility] [place] [address] Referral ID Status Reason Start Date Expiration Date Visits Requested Visits Authorized [id number] Authorized PCP Requested Referral 10/13/2021 10/13/2022 1 1 Specialty Diagnoses / Procedures Referred By Contac t Referred To Contact CT IMAGING Diagnoses Lung nodules Procedures CT CHEST W IVCON DIAGNOSTIC COMPUTED TOMOGRAPHY THORAX W/CONTRAST Memo Cole MD [address] [place] [address] [place] [address] Ct Imaging Referral ID Status Reason Start Date Expiration Date Visits Requested Visits Authorized [id number] Pending Review Auto-Generat ed Referral 10/30/2022 11/29/2022 1 1 Specialty Diagnoses / Procedures Referred By Contac t Referred To Contact CT IMAGING Diagnoses Malignant neoplasm of head, face and neck (HCC) Procedures CT NECK SOFT TISSUE W IVCON CT SOFT TISSUE NECK W/CONTRAST MATERIAL Memo Cole MD [address] [place] [address] Ct Imaging Referral ID Status Reason Start Date Expiration Date Visits Requested Visits Authorized [id number] Pending Review Auto-Generat ed Referral 10/30/2022 11/29/2022 1 1 Reason *FU 10/31 Evaluate and Treat Brainstem Lesion 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) Referral Organization [facility] Referring Provider First Name Sheng Referring Provider Last Name Wyatt Referring Provider Specialty Neurosurger y Referred Organization [facility] Referred Provider Jonny Vigil Referred Address [address] [place],[address] Referred Provider Specialty Neurological Surgery Referral Priority Routine General Notes Linnea Alvarado 022 02:09:54 PM >Received and fax referral today Reason consult and treat (p t is willing to see him in [place], if not then will [facility]) 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) Diagnosis 2 Cervical pain (neck) (M54.2) Diagnosis 3 Pressure in head (R5 1.9) Referral Organization [facility] Referring Provider First Name Griselda Referring Provider Last Name Nelida Referring Provider Specialty Family Prac henny Referred Organization [facility] Referred Provider Elvi Cadena Referred Address [address] [place], [place],[address] Referral Priority Routine Specialty Diagnoses / Procedures Referred By Roverto moraes Referred To Contact MR IMAGING Diagnoses 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HCC) Procedures MRI BRAIN WO/W IVCON MRI BRAIN BRAIN STEM W/O W/CONTRAST MATERIAL Kelly Perez, BILLY [address] [place] [address] Mr Imaging Referral ID Status Reason Start Date Expiration Date Visits Requested Visits Authorized [id number] Authorized Auto-Generat ed Referral 09/20/2022 10/20/2023 1 1 Referral ID Status Reason Start Date Expiration Date V isits Requested Visits Authorized [id number] Closed Auto-Generate d Referral 09/20/2022 10/20/2023 1 1 Reason pt requesting n ot Dr. Verma, but can see other providers from that group evaluate and treat tinnitus and balance issues Diagnosis 1 Tinnitus of both ear s (H93.13) Diagnosis 2 Balance disorder (R2 6.89) Referral Organization [facility] Cardiology Referring Provider First Name Lilliam Referring Provider Last Name Kamla Referring Provider Specialty Cardiovascu lar Disease Referred Organization [facility] Referred Provider Manuela Ballesteros Referred Address ,[place], [place],[address] Referred Provider Specialty Ear, Nose an d Throat Referral Priority Routine General Notes Yessica Brown 12:40:36 PM >received today, pt has medicaid insurance, will send to Dr. Ballesteros, attachments made, waiting for notes to be locked Reason consult and treat Diagnosis 1 PAD (peripheral arnie ry disease) (I73.9) Referral Organization [facility] Referring Provider First Name Griselda Referring Provider Last Name Nelida Referring Provider Specialty Family Prac henny Referred Organization [facility] Referred Provider Filipe Hess Referred Address [address] [place] [address],[place] [address],[place], [place],[address] Referred Provider Specialty Vascular Abdirahman yvon Referral Priority Routine General Notes Linnea Alvarado M 023 11:58:24 AM >Received today and sent P2P Specialty Diagnoses / Procedures Referred By Roverto moraes Referred To Contact CT IMAGING Diagnoses 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) Procedures CT CHEST W IVCON DIAGNOSTIC COMPUTED TOMOGRAPHY THORAX W/CONTRAST Memo Cole MD [address] [place] [address] [place] [address] Ct Imaging [facility] Referral ID Status Reason Start Date Expiration Date Visits Requested Visits Authorized [id number] Authorized Auto-Generat ed Referral 11/01/2024 12/01/2024 1 1 Specialty Diagnoses / Procedures Referred By Roverto moraes Referred To Contact CT IMAGING Diagnoses 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) Procedures CT NECK SOFT TISSUE W IVCON CT SOFT TISSUE NECK W/CONTRAST MATERIAL Memo Cole MD [address] [place] [address] [place] [address] [place] [address] Referral ID Status Reason Start Date Expiration Date Visits Requested Visits Authorized [id number] Authorized Auto-Generat ed Referral 11/01/2024 12/01/2024 1 1 Referral ID Status Reason Start Date Expiration Date V isits Requested Visits Authorized [id number] Closed Auto-Generate d Referral 10/26/2023 06/17/2024 1 1 Referral ID Status Reason Start Date Expiration Date V isits Requested Visits Authorized [id number] Closed Auto-Generate d Referral 10/26/2023 06/17/2024 1 1 Specialty Diagnoses / Procedures Referred By Roverto t Referred To Contact CT IMAGING Diagnoses Lung nodules Procedures CT CHEST W IVCON DIAGNOSTIC COMPUTED TOMOGRAPHY THORAX W/CONTRAST Memo Cole MD [address] [facility] [place] [address] [place] [address] Referral ID Status Reason Start Date Expiration Date V isits Requested Visits Authorized [id number] Closed Auto-Generate d Referral 10/30/2022 11/29/2022 1 1 Specialty Diagnoses / Procedures Referred By Contac t Referred To Contact CT IMAGING Diagnoses Malignant neoplasm of head, face and neck (HCC) Procedures CT NECK SOFT TISSUE W IVCON CT SOFT TISSUE NECK W/CONTRAST MATERIAL Memo Cole MD [address] [facility] [place] [address] [place] [address] Referral ID Status Reason Start Date Expiration Date V isits Requested Visits Authorized [id number] Closed Auto-Generate d Referral 10/30/2022 11/29/2022 1 1 Chief Complaint Patient referred by Dr. Narayan [...] section and content) DATE CREATED AUTHOR 08/01/2019 [facility] DATE CREATED AUTHOR AUTHOR'S ORGANIZ ATION 11/05/2021 [employer] DATE CREATED AUTHOR AUTHOR'S ORGANIZ ATION 01/19/2022 [facility] dical Specialist DATE CREATED AUTHOR AUTHOR'S ORGANIZ ATION 10/02/2022 [facility] DATE CREATED AUTHOR AUTHOR'S ORGANIZ ATION 12/25/2022 [facility] DATE CREATED AUTHOR AUTHOR'S ORGANIZ ATION 08/03/2023 [facility] DATE CREATED AUTHOR AUTHOR'S ORGANIZ ATION 10/10/2023 [facility] DATE CREATED AUTHOR AUTHOR'S ORGANIZ ATION 11/04/2023 [facility] DATE CREATED AUTHOR AUTHOR'S ORGANIZ ATION 12/20/2023 [facility] DATE CREATED AUTHOR AUTHOR'S ORGANIZ ATION 01/07/2024 [facility] DATE CREATED AUTHOR AUTHOR'S ORGANIZ ATION 01/18/2024 [facility] dical [facility] DATE CREATED AUTHOR AUTHOR'S ORGANIZ ATION 02/13/2024 [facility] DATE CREATED AUTHOR AUTHOR'S ORGANIZ ATION 02/21/2024 [facility] DATE CREATED AUTHOR AUTHOR'S ORGANIZ ATION 03/02/2024 [facility] Source Comments (unrecognize d section and content) In the event this informatio n is protected by the Federal Confidentiality of Alcohol and Drug Abuse Patient Records regulations: The Federal rules restrict any use of the information to criminally investigate or prosecute any alcohol or drug abuse patient.[facility] the event this information is protected by the Federal Confidentiality of Alcohol and Drug Abuse Patient Records regulations: The Federal rules restrict any use of the information to criminally investigate or prosecute any alcohol or drug abuse patient.[facility] the event this information is protected by the Federal Confidentiality of Alcohol and Drug Abuse Patient Records regulations: The Federal rules restrict any use of the information to criminally investigate or prosecute any alcohol or drug abuse patient.[facility] the event this information is protected by the Federal Confidentiality of Alcohol and Drug Abuse Patient Records regulations: The Federal rules restrict any use of the information to criminally investigate or prosecute any alcohol or drug abuse patient.[facility] the event this information is protected by the Federal Confidentiality of Alcohol and Drug Abuse Patient Records regulations: The Federal rules restrict any use of the information to criminally investigate or prosecute any alcohol or drug abuse patient.[facility] the event this information is protected by the Federal Confidentiality of Alcohol and Drug Abuse Patient Records regulations: The Federal rules restrict any use of the information to criminally investigate or prosecute any alcohol or drug abuse patient.[facility] the event this information is protected by the Federal Confidentiality of Alcohol and Drug Abuse Patient Records regulations: The Federal rules restrict any use of the information to criminally investigate or prosecute any alcohol or drug abuse patient.[facility] the event this information is protected by the Federal Confidentiality of Alcohol and Drug Abuse Patient Records regulations: The Federal rules restrict any use of the information to criminally investigate or prosecute any alcohol or drug abuse patient.[facility] the event this information is protected by the Federal Confidentiality of Alcohol and Drug Abuse Patient Records regulations: The Federal rules restrict any use of the information to criminally investigate or prosecute any alcohol or drug abuse patient.[facility] the event this information is protected by the Federal Confidentiality of Alcohol and Drug Abuse Patient Records regulations: The Federal rules restrict any use of the information to criminally investigate or prosecute any alcohol or drug abuse patient.[facility] the event this information is protected by the Federal Confidentiality of Alcohol and Drug Abuse Patient Records regulations: The Federal rules restrict any use of the information to criminally investigate or prosecute any alcohol or drug abuse patient.[facility] the event this information is protected by the Federal Confidentiality of Alcohol and Drug Abuse Patient Records regulations: The Federal rules restrict any use of the information to criminally investigate or prosecute any alcohol or drug abuse patient.[facility] Reason for Visit (unrecogniz ed section and content) Reason Comments Results Reason Comments Head and Neck Cancer Specialty Diagnoses / Procedures Referred By Contac t Referred To Contact Hematology/Oncology / HEMATOLOGY/ONCOLOGY Diagnoses Follow-up examination 1 year follow up LABS WITH CT Procedures EST PATIENT Memo Cole MD [address] [place] [address] [place] [address] Memo Cole MD [address] [place] [address] [place] [address] Referral ID Status Reason Start Date Expiration Date Visits Re quested Visits Authorized [id number] Closed 10/13/2021 06/17/2022 1 1 Reason Comments Referral Information Neurosurgery Reason Comments Established Patient Specialty Diagnoses / Procedures Referred By Contac t Referred To Contact Hematology/Oncology / HEMATOLOGY/ONCOLOGY Diagnoses 2 week phone follow up [phone] Procedures PHYS/QHP TELEPHONE EVALUATION 5-10 MIN PROVIDER SPECIALTY PHONE CALL Memo Cole MD [facility] [place] [address] Memo Cole MD [address] [place] [address] [place] [address] Referral ID Status Reason Start Date Expiration Date Visits Re quested Visits Authorized [id number] Closed 10/27/2021 06/17/2022 1 1 Reason Comments Triage Internal Referral--o ld Reason Comments Appointment Reason Comments New Patient Specialty Diagnoses / Procedures Referred By Contac t Referred To Contact Neurology / BRAIN TUMOR Diagnoses Hydrocephalus (HCC) Hydrocephalus Procedures OFFICE/OUTPATIENT NEW MODERATE MDM 45-59 MINUTES NEW SURGICAL Elvi Cadena MD [address] [facility] [address] [address] Kelly Perez PA-C [address] [place] [address] Referral ID Status Reason Start Date Expiration Date Visits Re quested Visits Authorized [id number] Closed 09/13/2022 06/17/2023 1 1 Reason Comments Patient Question Reason Comments Radiology MRI Specialty Diagnoses / Procedures Referred By Contac t Referred To Contact MR IMAGING Diagnoses 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HCC) Procedures MRI BRAIN WO/W IVCON MRI BRAIN BRAIN STEM W/O W/CONTRAST MATERIAL Kelly Perez PA-C [address] [place] [address] Mr Imaging Referral ID Status Reason Start Date Expiration Date V isits Requested Visits Authorized [id number] Closed Auto-Generate d Referral 09/20/2022 10/20/2023 1 1 Reason Comments New Patient Visit Reason Comments Head and Neck Cancer 1 year follow up Reason Comments Radiology CT Specialty Diagnoses / Procedures Referred By Contac t Referred To Contact CT IMAGING Diagnoses 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) Procedures CT NECK SOFT TISSUE W IVCON CT SOFT TISSUE NECK W/CONTRAST MATERIAL Memo Cole MD [address] [place] [address] [place] [address] [place] [address] Referral ID Status Reason Start Date Expiration Date V isits Requested Visits Authorized [id number] Closed Auto-Generate d Referral 10/26/2023 06/17/2024 1 1 Specialty Diagnoses / Procedures Referred By Contac t Referred To Contact CT IMAGING Diagnoses Lung nodules Procedures CT CHEST W IVCON DIAGNOSTIC COMPUTED TOMOGRAPHY THORAX W/CONTRAST Memo Cole MD [address] [place] [address] [place] [address] [place] [address] Referral ID Status Reason Start Date Expiration Date V isits Requested Visits Authorized [id number] Closed Auto-Generate d Referral 10/30/2022 11/29/2022 1 1 Care Teams (unrecognized sec tion and content) Global Cto Relationship Specialty Start Date End Date Griselda Hastings [address] [place] [phone] PCP - General Family Practice 11/20/18 Griselda Hastings [address] [place], [place] [phone] Referring Family Practice 11/20/18 Global Cto Relationship Specialty Start Date End Date Griselda Hastings [address] [place], [place] [phone] PCP - General Family Practice 11/20/18 Griselda Hastings [address] [place] [phone] Referring Family Practice 11/20/18 Global Cto Relationship Specialty Start Date End Date Griselda Hastings [address] [place], [place] [phone] PCP - General Family Practice 11/20/18 Griselda Hastings [address] [place] [phone] Referring Family Practice 11/20/18 Global Cto Relationship Specialty Start Date End Date Griselda Hastings [address] [place] [phone] PCP - General Family Practice 11/20/18 Griselda Hastings [address] [place] [address], [place] [address] Referring Family Practice 11/20/18 Global Cto Relationship Specialty Start Date End Date Griselda Hastings [address] [place] [address], [place] [address] PCP - General Family Medicine 11/20/[address] [place] [address] Referring Family Medicine 11/20/18 Global Cto Relationship Specialty Start Date End Date Griselda Hastings[address], [phone] PCP - General Family Medicine 11/20/18 Griselda Hastings[address] [place] [address] Referring Family Medicine 11/20/18 Team Status: Inactive Member Role Status Poornima Hastings DO Primary Care Provider Active Daniel Gaytan APRN Emergency Provider Active Team Status: Active Member Role Status Poornima Hastings DO Primary Care Provider Active Elvi Cadena MD Attending Provider Active Team Status: Active Member Role Status Poornima Hastings DO Primary Care Provider Active Team Status: Inactive Member Role Status Poornima Hastings DO Primary Care Provider Active Landy Wong Jr, MD Emergency Provider Active Team Status: Active Member Role Status Poornima Hastings DO Primary Care Provider Active Nikole Thomason APRN NUCLEAR ENGINEER-C Attending Provider A ctive Team Status: Inactive Member Role Status Poornima Hastings DO Primary Care Provider Active Elvi Cadena MD Attending Provider Active Team Status: Inactive Member Role Status Poornima Hastings DO Primary Care Provider Active Nikole Thomason APRN NUCLEAR ENGINEER-C Attending Provider A ctive Global Cto Relationship Specialty Start Date End Date Griselda Hastings[address] [place] [address] PCP - General Family Medicine 11/20/18 Griselda Hastings [address] [place] [address], [place] [address] Referring Family Medicine 11/20/18 Elvi Cadena MD [address] [place] [address], [place] [address] Referring Neurology 08/18/22 Global Cto Relationship Specialty Start Date End Date Griselda Hastings [address] [place] [address], [place] [address] PCP - General Family Medicine 11/20/18 Griselda Hastings [address] [place] [address], [place] [address] Referring Family Medicine 11/20/18 Elvi Cadena MD [address] [facility] [address] [place] [address], [place] [address] Referring Neurology 08/18/22 Global Cto Relationship Specialty Start Date End Date Griselda Hastings [address] [place] [address], [place] [address] PCP - General Family Medicine 11/20/18 Griselda Hastings [address] [place] [address], [place] [address] Referring Family Medicine 11/20/18 Elvi Cadena MD [address] [facility] [address] [facility] [place] [address] Referring Neurology 08/18/22 Team Status: Inactive Member Role Status Dates Griselda Hastings DO Primary Care Provider, Attending Provi skye Active Team Status: Inactive Member Role Status Dates Griselda Hastings DO Primary Care Provider Active Lima Joseph MD Attending Provider Active Team Status: Inactive Member Role Status Poornima Hastings DO Primary Care Provider Active Rohit Agrawal , Emergency Provider Active Team Status: Inactive Member Role Status Poornima Hastings DO Primary Care Provider Active Lilliam Cason MD Attending Provider Active Team Status: Inactive Member Role Status Poornima Hastings DO Primary Care Provider Active Ruddy Harvey MD Attending Provider Active Global Cto Relationship Specialty Start Date End Date Griselda Hastings DO [address] [place] [place] [phone] PCP - General Family Medicine 02/13/23 Global Cto Relationship Specialty Start Date End Date Griselda Hastings DO [address] [place] [facility] [phone] PCP - General Family Medicine 02/13/23 Team Status: Inactive Member Role Status Poornima Hastings DO Primary Care Provider Active Sta rt: May 04, 2023 End: May 04, 2023 Nikole Thomason APRN NUCLEAR ENGINEER-C Attending Provider Active Start: April End: May 04, 2023 Team Status: Inactive Member Role Status Poornima Hastings DO Primary Care Provider Active Sta rt: [...] Team Status: Inactive Member Role Status Poornima Hastings DO Primary Care Provider Active Sta rt: May 30, 2023 End: May 30, 2023 Ruddy Harvey MD Attending Provider Active Start: May 30, 2023 End: May 30, 2023 Team Status: Inactive Member Role Status Poornima Hastings DO Attending Provider Active Start: May 31, 2023 End: May 31, 2023 Team Status: Inactive Member Role Status Dates Griselda Hastings DO Attending Provider Active Start: July 02, 2023 End: July 02, 2023 Team Status: Inactive Member Role Status Dates Griselda Hastings DO Primary Care Provide r, Attending Provider Active Start: August 02, 2023 End: August 02, 2023 Team Status: Inactive Member Role Status Poornima Hastings DO Primary Care Provide r, Attending Provider Active Start: August 15, 2023 End: August 15, 2023 Team Status: Active Member Role Status Dates Griselda Hastings DO Primary Care Provider Active Sta rt: September 05, 2023 Ruddy Harvey MD Attending Provider Active Start: September 05, 2023 Team Status: Inactive Member Role Status Poornima Hastings DO Primary Care Provider Active Sta rt: September 05, 2023 End: September 05, 2023 Ruddy Harvey MD Attending Provider Active Start: September 05, 2023 End: September 05, 2023 Team Status: Inactive Member Role Status Poornima Hastings DO Primary Care Provider Active Sta rt: September 05, 2023 End: September 05, 2023 Lilliam Cason MD Attending Provider Active Sta rt: September 05, 2023 End: September 05, 2023 Global Cto Relationship Specialty Start Date End Date Griselda Hastings DO PCP - General 01/03/19 Global Cto Relationship Specialty Start Date End Date Griselda Hastings DO [address] [facility] [address] [place] [address] PCP - General 01/03/19 Ign[place] [id number] [place] [id number] Consulting Physician Hematology and Oncology 10/05/23 Team Status: Inactive Member Role Status Dates Griselda Hastings DO Primary Care Provide r, Attending Provider Active Start: October 09, 2023 End: October 09, 2023 Team Status: Inactive Member Role Status Dates Griselda Hastings DO Primary Care Provider Active Sta rt: October 18, 2023 End: October 18, 2023 Lilliam Cason MD Attending Provider Active Sta rt: October 18, 2023 End: October 18, 2023 Team Status: Active Member Role Status Dates Griselda Hastings DO Primary Care Provider Active Sta rt: October 26, 2023 Memo Cole MD Attending Provider Active Start: October 26, 2023 Team Status: Inactive Member Role Status Dates Griselda Hastings DO Primary Care Provide r, Attending Provider Active Start: October 29, 2023 End: October 29, 2023 Global Cto Relationship Specialty Start Date End Date Griselda Hastings [address] [place], [place] [phone] PCP - General Family Medicine 11/20/18 Griselda Hastings [address] [place] [phone] Referring Family Medicine 11/20/18 Elvi Cadena MD [address] [facility] [address] [id number] Referring Neurology 08/18/22 Team Status: Active Member Role Status Dates Lilliam Cason MD [employer] Net Developer Active Griselda Hastings DO Primary Care Provider Active Team Status: Inactive Member Role Status Dates Griselda Hastings DO Primary Care Provide r, Attending Provider Active Start: December 03, 2023 End: December 03, 2023 Team Status: Inactive Member Role Status Dates Griselda Hastings DO Primary Care Provide r, Attending Provider Active Start: January 31, 2024 End: January 31, 2024 Global Cto Relationship Specialty Start Date End Date Griselda Hastings [address] [place] [phone] PCP - General Family Medicine 11/20/18 Griselda Hastings [address] [place] [phone] Referring Family Medicine 11/20/18 Elvi Cadena MD [address] [facility] [address]man [address] [place] [phone] Referring Neurology 08/18/22 Global Cto Relationship Specialty Start Date End Date AndreaGriselda meneses [address] [place] [phone] PCP - General Family Medicine 11/20/18 Nelida Griselda Adriana [address] [place] [address] [phone] Referring Family Medicine 11/20/18 Elvi Cadena MD [address] [facility] [address] Rothman [address] [place] [phone] Referring Neurology 08/18/22 Goals (unrecognized section and content) Goals from [...] BE BASED ON THE PRIMARY CLINICAL RECORDS. [facility]. provides no warranty or guarantee of the accuracy or completeness of information in this document.
[2024-03-11 18:40] VITALS: BP 149/99; PULSE 69; TEMP 36.8; O2SAT 99; BMI 27.4
--- NOTE | 2024-03-11 18:58 | CT_ITS ---
The [address] [address] Patient Name: SHANTEL MELENDEZ MRN: [id number] date: 1960 Sex: M Assigned Patient Location: ER Current Patient Location: Accession/Order Number: [id number] Exam Date: 03/11/2024 19:18 Report Date: 03/11/2024 20:17 At the request of: DANA OBRIEN Procedure: CT cervical spine wo con EXAM: CT cervical spine wo con HISTORY: The patient felt something pop when he moved last night with neck pain. TECHNIQUE: Axial CT scans through the cervical spine were obtained without contrast administration. Sagittal and coronal reconstruction images were obtained. Dose reduction techniques were achieved by using: automated exposure control and/or adjustment of mA and /or kV according to patient size and/or the use of an iterative reconstruction technique. COMPARISON: None. FINDINGS: No acute fracture or posttraumatic malalignment is shown. Decreased disc height and associated discovertebral complexes at C3-C4, C5-C6, and C6-C7 without central spinal stenosis. A small C4-C5 right paracentral posterior disc protrusion. Moderate to severe right C2-C3 facet arthropathy. Moderate to severe stenosis of the left C3-C4 neural foramen secondary to decreased disc height, uncovertebral hypertrophy and moderate-severe facet hypertrophy. Moderate to severe stenosis of the left C5-C6 and C6-C7 neural foramina secondary to decreased disc height and uncovertebral hypertrophy. The prevertebral soft tissue space appears normal. Visualized intracranial contents appear normal. The visualized neck shows no adenopathy. Visualized lung apices are clear. CT/CT cervical spine wo con IMPRESSION: No acute fracture or posttraumatic malalignment. Discovertebral degenerative changes in the cervical spine without central spinal stenosis. Moderate to severe stenosis of the left C3-C4, C5-C6 and C6-C7 neural foramina as described above. Electronically authenticated by: ANAHI CASTRO Date: 03/11/2024 20:17
[2024-03-11 19:44] VITALS: BP 138/105; PULSE 51; O2SAT 100
--- NOTE | 2024-03-11 19:46 | ED.GENADUL1 ---
HPI HPI - General Adult General Chief complaint: Extremity Injury, Upper Stated complaint: NECK PAIN Time Seen by Provider: 03/11/24 19:42 Source: patient Mode of arrival: walk-in Limitations: no limitations History of Present Illness HPI narrative: Patient is a 63-year-old male with a history of chronic neck pain who sees pain management for his neck who presents to the ER for evaluation of pain in the cervical spine after turning his head in bed last night and feeling a pop . His significant other states it was very loud. Today the pain is radiating into the left arm. He denies numbness or tingling. He took [place] and Zanaflex that is prescribed to him at home from pain management and states it did not improve his symptoms. No falls or direct injury. Related Data Home Medications ?Medication ?Instructions ?Recorded ?Confirmed amlodipine 5 mg tablet (Norvasc) 5 mg PO DAILY 04/16/23 03/11/24 aspirin 81 mg tablet,delayed 81 mg PO DAILY 04/16/23 03/11/24 release (Adult Low Dose Aspirin) hydroxyzine HCl 25 mg tablet 25 mg PO BID PRN sleep 04/16/23 03/11/24 mirtazapine 15 mg tablet 15 mg PO DAILY 04/16/23 12/17/23 ibuprofen 600 mg tablet (IBU) 600 mg PO BID 11/28/23 12/17/23 buspirone 5 mg tablet 5 mg PO TID 12/17/23 03/11/24 tizanidine 4 mg capsule 4 mg PO Q12H 12/17/23 03/11/24 clopidogrel 75 mg tablet mg 03/11/24 Previous Rx's ?Medication ?Instructions ?Recorded hydrocodone 5 mg-acetaminophen 325 1 tab PO DAILY PRN severe pain #30 06/27/23 mg tablet tabs hydrocodone 5 mg-acetaminophen 325 1 tab PO BID PRN pain #45 tabs 01/10/24 mg tablet hydrocodone 5 mg-acetaminophen 325 See Rx Instructions .Route 02/19/24 mg tablet .COMPLEX PRN pain #45 tabs methylprednisolone 4 mg tablets in See Rx Instructions .Route 03/11/24 a dose pack (Medrol (Slim)) .COMPLEX #21 ea Allergies Allergy/AdvReac Type Severity Reaction Status Date / Time cephalexin [From Keflex] Allergy Unknown Verified 12/17/23 11:03 Opioid HPI Opioid Management Most Recent Opioid Data: Last Pain Scale 6 12/17/23 10:52 Review of Systems ROS Constitutional Denies: fever or chills Ears, nose, mouth, and throat Denies: throat pain or nasal congestion Respiratory Denies: shortness of breath Gastrointestinal Denies: nausea or vomiting Musculoskeletal Reports: neck pain and extremity pain; Denies: back pain Neurological Denies: numbness in extremities or weakness in extremities Hematologic/Lymphatic Reports: easy bruising and easy bleeding PFSH PFSH Medical History Neck pain ?M54.2 - Cervicalgia (ICD-10) Low back pain ?M54.50 - Low back pain, unspecified (ICD-10) Smoker ?F17.200 - Nicotine dependence, unspecified, uncomplicated (ICD-10) Irregular heart beat ?I49.9 - Cardiac arrhythmia, unspecified (ICD-10) Hypertension ?I10 - Essential (primary) hypertension (ICD-10) Surgical History H/O neck dissection ?Z98.890 - Other specified postprocedural states (ICD-10) Social History Little interest or pleasure in doing things: not at all Feeling down, depressed, or hopeless: not at all Exam Narrative Exam Narrative: Gen.: Awake, alert, in no distress Head: Normocephalic, atraumatic ENT: Moist mucous membranes, Respiratory: No respiratory distress Extremities: Moves extremities equally, no injuries noted; no mobile architect strength and biceps tendon strength in the upper extremities. Pain with range of motion at the left shoulder Psych: Normal mood and affect Neuro: No focal neuro deficit Skin: Warm, dry, intact Constitutional Vital Signs, click to edit/add: Last Vital Signs Temp 98.3 F 03/11/24 18:40 Pulse 51 L 03/11/24 19:44 Resp 18 03/11/24 19:44 BP 144/66 H 03/11/24 19:48 Pulse Ox 100 03/11/24 19:44 Course Vital Signs Vital signs: Vital Signs Temperature 98.3 F 03/11/24 18:40 Pulse Rate 69 03/11/24 18:40 Respiratory Rate 18 03/11/24 18:40 Blood Pressure 149/99 H 03/11/24 18:40 Pulse Oximetry 99 03/11/24 18:40 Temperature 98.3 F 03/11/24 18:40 Pulse Rate 51 L 03/11/24 19:44 Respiratory Rate 18 03/11/24 19:44 Blood Pressure 144/66 H 03/11/24 19:48 Pulse Oximetry 100 03/11/24 19:44 Medical Decision Making MDM Narrative Medical decision making narrative: CT of the cervical spine with degenerative changes, no evidence of acute process. Patient is neurovascularly intact. He was treated for pain in the ER and will be discharged home with a Medrol Dosepak as he is in pain management and is currently prescribed [place] and Zanaflex from his paintings conservator. Rest, ice, gentle stretching. Return to the ER if symptoms change or worsen SHARED APC VISIT, PHYSICIAN ATTESTATION: [id number] I performed a substantive part of the MDM during the patient?s E/M visit. I personally evaluated and examined the patient. I personally made or approved the documented management plan and acknowledge its risk of complications. Medical Records Medical records reviewed: Yes I reviewed the patient's medical records Imaging Data CT cervical: Attestation: I have reviewed the pertinent imaging results. Radiologist's impression: ITS Impressions Cervical Spine CT 03/11/24 18:58 IMPRESSION: No acute fracture or posttraumatic malalignment. Discovertebral degenerative changes in the cervical spine without central spinal stenosis. Moderate to severe stenosis of the left C3-C4, C5-C6 and C6-C7 neural foramina as described above. Electronically authenticated by: ANAHI CASTRO Date: 03/11/2024 20:17 Discharge Plan Discharge Chief Complaint: Extremity Injury, Upper Clinical Impression: Cervical radiculopathy Patient Disposition: Home, Self-Care Time of Disposition Decision: 20:31 Condition: Good Prescriptions / Home Meds: New methylprednisolone [Medrol (Slim)] 4 mg tablets,dose pack See Rx Instructions .ROUTE .COMPLEX Qty: 21 0RF Rx Instructions: Taper as directed No Action amlodipine [Norvasc] 5 mg tablet 5 mg PO DAILY mirtazapine 15 mg tablet 15 mg PO DAILY hydroxyzine HCl 25 mg tablet 25 mg PO BID PRN (Reason: sleep) aspirin [Adult Low Dose Aspirin] 81 mg tablet,delayed release (DR/EC) 81 mg PO DAILY hydrocodone-acetaminophen 5-325 mg tablet 1 tab PO DAILY PRN (Reason: severe pain) Qty: 30 0RF Rx Instructions: to last 30days clopidogrel 75 mg tablet ibuprofen [IBU] 600 mg tablet 600 mg PO BID hydrocodone-acetaminophen 5-325 mg tablet 1 tab PO BID PRN (Reason: pain) Qty: 45 0RF hydrocodone-acetaminophen 5-325 mg tablet See Rx Instructions .ROUTE .COMPLEX PRN (Reason: pain) Qty: 45 0RF Rx Instructions: 1 PO BID #45 TO LAST 30 DAYS buspirone 5 mg tablet 5 mg PO TID tizanidine 4 mg capsule 4 mg PO Q12H Print Language: Yakut Instructions: Cervical Radiculopathy (ED) Referrals: GRISELDA KRAUSE [Primary Care Provider] - 1 week
[2024-03-11 19:48] VITALS: BP 144/66
[2024-03-11] MEDS: ONDANSETRON 4 MG RAPDIS TABLET SL (20:00)
[2024-03-11] MEDS: METHYLPREDNISOLONE SOD SUCC PF 125 MG/2 ML VIAL IM (20:01)
[2024-03-11] MEDS: ORPHENADRINE 60 MG/ 2 ML VIAL IM (20:02)
[2024-03-11] MEDS: MORPHINE SULFATE 4 MG/ML VIAL IM (20:02)
[2024-03-11 20:45] VITALS: BP 126/82; PULSE 81; O2SAT 99
== END 2024-03-11 20:45 | disposition home or self-care (01) ==
PROVIDERS: Emergency Provider Emergency Medicine; PCP Family Medicine
DX: M54.12 Radiculopathy, cervical region (principal)
CPT/HCPCS: 72125; 96372; 99285; J2270; J2360; J2919; Q0162

== ENCOUNTER 2024-03-27 09:37 | Outpatient (OUT) | payer OTHER, SELFPAY ==
--- OUTSIDE RECORDS SUMMARY | 2024-03-27 09:45 | XMS_ITS | CCD ---
Author Organization [facility] Care Team Providers Care Template Reproduction Technician Name Role Phone Griselda Krause Primary Care Provider [phone] Griselda Krause Attending Provider Griselda Krause Unavailable [...] Care Provider MD Elvi Cadena Attending Provider [phone] Trish Carney Unavailable Kuns, Griselda Adriana Primary Care Provider KunGriselda meneses Unavailable Tammi NORRIS, Elvi Ruiz Unavailable DEMOND CAT Attending Unavailable DEMOND CAT Admitting Unavailable KUNS, GRISELDA ADRIANA Primary Care Unavailable Kuns, DO Griselda Primary Care Provider Kuns, DO Griselda Attending Provider [phone] MD Lima Joseph Attending Provider Dr. BRET HDEZ Attending Unavailable PCP, OTHER Primary Care Unavailable PCP, Other Primary Care Physician [phone] Kuns, DO Griselda Primary Care Provider BAILEY Gaytan Emergency Provider DO Rohit Agrawal Emergency Provider Darling, DO Camara Attending Provider Lilliam Cason Unavailable Andreas, DO Griselda Primary Care Provider BAILEY Gaytan Emergency Provider TuDO Rohit saavedra Emergency Provider Darling, DO Griselda Attending Provider [phone] MD Lilliam Cason Attending Provider Ruddy Harvey Unavailable [phone] BAILEY Thomason Attending Provider MD Ruddy Harvey Attending Provider [phone] Kuns, DO Griselda Primary Care Provider Kuns DO, Griselda R Primary Care Provider [phone] Kuns, DO Griselda Primary Care Provider [phone] ADDIS KHAN Attending Unavailable ADDIS KHAN Referring Unavailable KUNS, GRISELDA R Primary Care Unavailable ADDIS KHAN Attending Unavailable ADDIS KHAN Referring Unavailable KUNS, GRISELDA R Primary Care Unavailable Kuns, DO Griselda Primary Care Provider MD Ruddy Harvey Attending Provider [phone] Kuns DO, Griselda R Primary Care Provider Kuns DO, Griselda R Primary Care Provider Ignacia Jack MD Unavailable [phone] Kuns, DO Griselda Attending Provider [phone] Kuns, Griselda Attending Unavailable Kuns, Griselda [...] e Kuns, Griselda Adriana Primary Care Provider [phone] Tammi NORRIS, Elvi Ruiz Unavailable ABHYANKAR, MEMO Referring Unavailable ABHYANKAR, MEMO [...] Unavailab le GRAZIANNIKOLE Wright Attending Unavailab le GRAZIANKyle, NIKOLE Mullins Attending Unavailab yasmani LACONIJEREMY Meneses [...] Unavailable KUNS, GRISELDA R Primary Care Unavailable GRISELDA KRAUSE Primary Care Unavailable Unavailable Unavailable Unavailable Allergies Allergy Classification Reported Allergen(s) Allergy Type Date of Onset Reaction(s) Facility Cephalosporins (antibiotic) (1 source) Cephalexin Drug Allergy 8 [facility] (20 sources) Cephalexin; Translations: [CEPHALEXIN] Drug Allergy 8 [facility] (20 sources) Cephalexin; Translations: [Keflex] Drug Allergy rash [email or web address] Other (1 source) Cephalexin; Translations: [Keflex] [facility] Keflet; Translations: [KEFLET] Propensity to adverse reactions 4 [facility] (1 source) ALLERGIES NOT ON FILE; Translations: [ALLERGIES NOT ON FILE] Propensity to adverse reactions (disorder) [facility] Rep[facility] NEGATED: Highlighted row has been ruled out! (1 source) natural latex rubber; Translations: [LATEX, NATURAL RUBBER] Drug allergy (disorder) [facility] [place] NEGATED: Highlighted row has been ruled out! (1 source) No IV Contrast Allergy.; Translations: [IV Dye, Iodine Containing] Drug allergy (disorder) [facility] [place] Medications Current Medications Medication Drug Class(es) Dates Sig (Normalized) Sig (Original) acetaminophen 325 mg / HYDROcodone bitartrate 5 mg oral tablet (20 sources) Opioid Agonist Start: 09-05-2023 take 1 tablet by mouth every eight hours Hydrocodone-Aceta minophen Active TAB PO Every 8 hours September 05, 2023 12:00am Start: 06-04-2023 take 1 tablet by myles th once daily as needed for pain HYDROcodone-acetaminophen (NORCO) 5-325 mg per tablet take 1 tablet orally daily NEEDED FOR PAIN MUST LAST 30 DAYS 0 06/04/2023 Active Start: 12-10-2017 End: 04-29-2018 take 1 tablet by mouth every four hours Hydrocodone-Acetaminophen ([place]) 5-325 mg tablet Discontinued 1 TAB PO [...] tablet (20 sources) Serotonin Reuptake Inhibitor Start: 06-17-2024 take 1 tablet by mouth once daily Citalopram (Celexa) 10 mg tablet Active 10 MG PO Daily December 03, 2023 12:00am Start: 12-26-2021 End: 12-03-2023 take 1 tablet by mouth once daily Citalopram Discontinued 20 MG PO Daily August 02, 2023 1:00am December 03, 2023 10:48am FreeTextSi tablet Orally Once a day; Note: Source Status: Continue; Provider: Darling Driver Start: 10-22-2018 take 1 tablet by [...] [id number] Platelet Inhibitor Start: 05-07-20 End: 01-23-20 take 1 tablet by mouth once daily [...] Darling Driver Start: 05-26-2022 End: 08-02-2023 take 1-2 [...] (will be provide d with radiology test) (18 sources) Start: 11-02-2023 End: 11-03-2023 iv contrast [...] Daily August 02, 2023 12:00am Multivitamin capsule (13 sources) take 1 capsule by mo uth [...] AFTERNOON and 2 at bedtime as directed [id number] actuat albuterol 0.09 mg/actuat metered dose [...] Darling Driver brexpiprazole 1 mg oral tablet (19 [...] Start: 05-31-2023 take 1 tablet by myles every twenty-four hours Rexulti 1 MG 1 tablet Orally Once a day samples provided May, Active Start: 05-31-2023 take 1 tablet by myles every twenty-four hours Rexulti 0.5 MG 1 tablet Orally Once a day for 7 days samples provided May, Active 12 hr buPROPion hydrochloride 150 mg extended release oral tablet (10 sources) Aminoketone Start: 02-28-2019 End: 10-17-2022 take 1 tablet by mouth twice daily buPROPion SR (WELLBUTRIN SR) 150 mg 12 hr tablet Take 1 tablet by mouth twice daily. 60 tablet 2 02/28/2019 10/17/2022 Discontinued Comment on above: Take 1 tablet by myles twice daily. cyclobenzaprine hydrochloride 10 mg oral tablet (14 sources) Muscle Relaxant Start: 03-21-2023 End: 05-07-2023 take 10 mg by mouth three times daily Cyclobenzaprine Discontinued 10 MG PO Three times daily March 21, 2023 12:00am May 07, 2023 9:22am doxycycline monohydrate 100 mg oral capsule (10 sources) Tetracycline-class Drug Start: 11-05-2018 End: 10-17-2022 take 1 capsule by mouth every twelve hours doxycycline monohydrate (MONODOX) 100 mg capsule TAKE 1 CAPSULE BY MOUTH EVERY 12 HOURS FOR 10 DAYS 0 11/05/2018 10/17/2022 Discontinued Comment on above: TAKE 1 CAPSULE BY MO [facility] EVERY 12 HOURS FOR 10 [...] 1:00am August 02, 2023 1:47pm Start: 02-27-2019 End: 10-17-2022 take 1 capsule by mouth three times daily gabapentin (NEURONTIN) 300 mg capsule Take 1 capsule by mouth three times daily for 30 days. 90 capsule 02/27/2019 10/17/2022 Discontinued take 1 capsule by mo ut every [...] Darling Camara ( ) Start: 07-17-2022 End: 11-02-2023 indomethacin (INDOCIN) 25 mg capsule Indomethacin Active 25 MG PO Daily July 17, 2022 1:00am 07/17/2022 11/02/2023 Discontinued (Discontinued by Patient) Start: 07-17-2022 End: 11-02-2023 take 25 mg by mouth once daily Indomethacin Discontinu ed 25 MG PO Daily July 17, 2022 1:00am August 02, 2023 1:48pm take 1 capsule by [facility] once daily at mealtime indomethacin SR (Indocin [...] 0; Provider: Darling Driver Start: 08-02-2023 End: 08-02-2023 Methylprednisolone Discontin ued MG PO As Directed August 02, 2023 12:00am August 02, 2023 12:48pm FreeTextSig: as directed Orally as directed; Note: Source Status: Start1 pack; Refills: 0; Provider: Draling Driver Start: 07-02-2023 methylPREDNISo lone 4 MG [...] 01-Nov-2021 Active take 1 capsule by mo [facility] once daily at bedtime tiZANidine (Zanaflex) [...] and other heart disease; Translations: [Atherosclerosis of [place] arteries of extremities with intermittent claudication, right [...] COVID-19] 01-31-2024 Episodic Other lower respiratory disease (17 sources) Multiple nodules of lung; Translations: [Other [...] disorders (1 source) Dyshidrosis [pompholyx] Episodic Other skin disorders (1 source) Finding of neck region; Translations: [Localized swelling, mass and lump, neck] 10-06-2021 Episodic Other upper respiratory disease (3 sources) [...] Reference Range Facility DEXA BONE DENSITYon 02-13-20 DEXA BONE DENSITY These images are not reportable by radiology and will not be interpreted by Radiologists. [facility] XR CERVICAL SPINE COMPLETE 6 + VIEWSon 02-13-2024 XR CERVICAL SPINE COMPLETE 6+ VIEWS Interpreted By: Romulo Medrano, STUDY: XR CERVICAL SPINE COMPLETE 6+ VIEWS; ; 02/13/2024 11:10 am INDICATION: Signs/Symptoms:r/o instability, assess alignment. ,M54.12 Radiculopathy, cervical region COMPARISON: None. ACCESSION NUMBER(S): [id number] ORDERING CLINICIAN: CAMILLE BARAHONA FINDINGS: C-spine, 6 [...] Romulo Medrano 02/19/2024 6:35 PM Dictation workstation: [id number] [facility] Comment on above: Order Comment: Pleas e obtain with flexion and extension XR CHEST 2 VIEWSon XR CHEST 2 VIEWS Interpreted By: Romulo Hubbard, STUDY: XR CHEST 2 VIEWS; 02/13/2024 11:10 am INDICATION: Signs/Symptoms:Preop surgery 02/[address] Steven MD. ,M54.12 Radiculopathy, cervical region,M81.0 Age-related osteoporosis without current pathological fracture COMPARISON: None. ACCESSION NUMBER(S): [id number] ORDERING CLINICIAN: CAMILLE BARAHONA FINDINGS: CARDIOMEDIASTINAL SILHOUETTE: Cardiomediastinal silhouette is normal in size and configuration. LUNGS: Lungs are clear. ABDOMEN: No remarkable upper abdominal findings. BONES: No acute osseous changes. IMPRESSION: 1. No evidence of acute cardiopulmonary process. MACRO: None Signed by: Romulo Medrano 02/19/2024 6:53 PM Dictation workstation: [id number] [facility] Basic metabolic 2000 panelon 02-11-2024 Anion gap [Moles/Vol] 13 mmol/L Normal 10-20 [facility] Comment on above: Performed By: #### 2 4321-2 #### TITUS Mercado ([id number]) [facility] ([facility]) [address] [place] [address] 04001 Calcium [Mass/Vol] 9.6 mg/dL Normal 8.6-10.6 [facility] Comment on above: Performed By: #### 2 4321-2 #### TITSU SOLORZANO L ([id number]) [facility] ([facility]) [address] [place] [address] 77490 Chloride [Moles/Vol] 104 mmol/L Normal 98-107 [facility] Comment on above: Performed By: #### 2 4321-2 #### TITUS PAYANMOTZER L ([id number]) [facility] ([facility]) [address] [place] [address] 39897 CO2 [Moles/Vol] 26 mmol/L Normal 21-32 [facility] Comment on above: Performed By: #### 2 4321-2 #### TITUS PAYANMOTZSIMI L ([id number]) [facility] ([facility]) [address] [place] [address] 07397 Creatinine [Mass/Vol] 0.89 mg/dL Normal 0.50-1.30 [facility] Comment on above: Performed By: #### 2 4321-2 #### TITUS PAYANMOTZER L ([id number]) [facility] ([facility]) [address] [place] [address] 71123 GFR/1.73 sq M.predicted MDRD (S/P/Bld) [Vol rate/Area] mL/min/{1.73_m2} Normal >60 [facility] Comment on above: Result Comment: Calc ulations of estimated GFR are performed using the 2020 CKD-EPI Study Refit equation without the race variable for the IDMS-Traceable creatinine methods. https://jasn.asnjournals.org/content//ASN.91773 61172 Performed By: #### 2 4321-2 #### TITUS Mercado ([id number]) [facility] ([facility]) [address] [place] [address] 88802 Glucose [Mass/Vol] 77 mg/dL Normal 74-99 [facility] Comment on above: Performed By: #### 2 4321-2 #### TITUS Mercado ([id number]) [facility] ([facility]) [address] [place] [address] 56156 Potassium [Moles/Vol] 4.6 mmol/L Normal 3.5-5.3 [facility] Comment on above: Performed By: #### 2 4321-2 #### TITUS SOLORZANO L ([id number]) [facility] ([facility]) [address] [place] [address] 96749 Sodium [Moles/Vol] 138 mmol/L Normal 136-145 [facility] Comment on above: Performed By: #### 2 4321-2 #### TITUS SOLORZANO L ([id number]) [facility] ([facility]) [address] [place] [address] 07231 Urea nitrogen [Mass/Vol] 9 mg/dL Normal 6-23 [facility] Comment on above: Performed By: #### 2 4321-2 #### TITUS SOLORZANO L ([id number]) [facility] ([facility]) [address] [place] [address] 11729 Blood type and Indirect anti body screen panel (Bld)on 02-11-2024 ABO group Nom (Bld) A Normal [facility] Comment on above: Performed By: #### 3 4532-2 #### TITUS Mercado ([id number]) [facility] ([facility]) [address] [place] [address] Blood group antibody screen Ql Negative Normal [facility] Comment on above: Performed By: #### 3 4532-2 #### TITUS Mercado ([id number]) [facility] ([facility]) [address] [place] [address] D Ag Ql (Bld) Positive [facility] Comment on above: Performed By: #### 3 4532-2 #### TITUS Mercado ([id number]) [facility] ([facility]) [address] [place] [address] CBC W Auto Differential pane l (Bld)on 02-11-2024 Basophils (Bld) [#/Vol] 0.04 x10*3/uL Normal 0.00-0.10 [facility] Comment on above: Performed By: #### 5 7021-8 #### TITUS Mercado ([id number]) [facility] ([facility]) [address] [place] [address] 48864 Basophils/100 WBC (Bld) 0.8 % Normal 0.0-2.0 [facility] Comment on above: Performed By: #### 5 7021-8 #### TITUS Mercado ([id number]) [facility] ([facility]) [address] [place] [address] 17352 Eosinophils (Bld) [#/Vol] 0.05 x10*3/uL Normal 0.00-0.70 [facility] Comment on above: Performed By: #### 5 7021-8 #### TITUS Mercado ([id number]) [facility] ([facility]) [address] [place] [address] 01962 Eosinophils/100 WBC (Bld) 1.0 % Normal 0.0-6.0 [facility] Comment on above: Performed By: #### 5 7021-8 #### TITUS Mercado (85130) [facility] ([facility]) [address] [place] [address] 47858 Erythrocyte distribution width (RBC) [Ratio] 13.2 % Normal 11.5-14.5 [facility] Comment on above: Performed By: #### 5 7021-8 #### TITUS Mercado ([id number]) [facility] ([facility]) [address] [place] [address] 71172 Hematocrit (Bld) [Volume fraction] 39.6 % Low 41.0-52.0 [facility] Comment on above: Performed By: #### 5 7021-8 #### TITUS Mercado ([id number]) [facility] ([facility]) [address] [place] [address] 53682 Hemoglobin (Bld) [Mass/Vol] 13.2 g/dL Low 13.5-17.5 [facility] Comment on above: Performed By: #### 5 7021-8 #### TITUS Mercado ([id number]) [facility] ([facility]) [address] [place] [address] 68560 Immature granulocytes (Bld) [#/Vol] 0.00 x10*3/uL Normal 0.00-0.70 [facility] Comment on above: Performed By: #### 5 7021-8 #### TITUS Mercado ([id number]) [facility] ([facility]) [address] [place] [address] 03722 Immature granulocytes/100 WBC (Bld) 0.0 % Normal 0.0-0.9 [facility] Comment on above: Result Comment: Adyan ture Granulocyte Count (IG) includes promyelocytes, myelocytes and metamyelocytes but does not include bands. Percent differential counts (%) should be interpreted in the context of the absolute cell counts (cells/UL). Performed By: #### 5 7021-8 #### TITUS Mercado ([id number]) [facility] ([facility]) [address] [place] [address] 77109 Lymphocytes (Bld) [#/Vol] 1.74 x10*3/uL Normal 1.20-4.80 [facility] Comment on above: Performed By: #### 5 7021-8 #### TITUS Mercado ([id number]) [facility] ([facility]) [address] [place] [address] 41434 Lymphocytes/100 WBC (Bld) 33.1 % Normal 13.0-44.0 [facility] Comment on above: Performed By: #### 5 7021-8 #### TITUS SOLORZANO L ([id number]) [facility] ([facility]) [address] [place] [address] 72343 MCH (RBC) [Entitic mass] 31.5 pg Normal 26.0-34.0 [facility] Comment on above: Performed By: #### 5 7021-8 #### TITUS Mercado ([id number]) [facility] ([facility]) [address] [place] [address] 91793 MCHC (RBC) [Mass/Vol] 33.3 g/dL Normal 32.0-36.0 [facility] Comment on above: Performed By: #### 5 7021-8 #### TITUS Mercado ([id number]) [facility] ([facility]) [address] [place] [address] 30839 MCV (RBC) [Entitic vol] 95 fL Normal 80-100 [facility] Comment on above: Performed By: #### 5 7021-8 #### TITUS Mercado ([id number]) [facility] ([facility]) [address] [place] [address] 05532 Monocytes (Bld) [#/Vol] 0.30 x10*3/uL Normal 0.10-1.00 [facility] Comment on above: Performed By: #### 5 7021-8 #### TITUS SOLORZANO L ([id number]) [facility] ([facility]) [address] [place] [address] 64872 Monocytes/100 WBC (Bld) 5.7 % Normal 2.0-10.0 [facility] Comment on above: Performed By: #### 5 7021-8 #### TITUS Mercado (85453) [facility] ([facility]) [address] [place] [address] 40553 Neutrophils (Bld) [#/Vol] 3.13 x10*3/uL Normal 1.20-7.70 [facility] Comment on above: Result Comment: Perc ent differential counts (%) should be interpreted in the context of the absolute cell counts (cells/uL). Performed By: #### 5 7021-8 #### TITUS ELENAER L ([id number]) [facility] ([facility]) [address] [place] [address] Neutrophils/100 WBC (Bld) 59.4 % Normal 40.0-80.0 [facility] Comment on above: Performed By: #### 5 7021-8 #### TITUS SOLORZANO L ([id number]) [facility] ([facility]) [address] [place] [address] 32264 Nucleated RBC/100 WBC (Bld) [Ratio] 0.0 /100 WBCs Normal 0.0-0.0 [facility] Comment on above: Performed By: #### 5 7021-8 #### TITUS PAYANMOTZER L (53569) [facility] ([facility]) [address] [place] [address] Platelets (Bld) [#/Vol] 271 x10*3/uL Normal 150-450 [facility] Comment on above: Performed By: #### 5 7021-8 #### TITUS PAYANMOALE L ([id number]) [facility] ([facility]) [address] [place] [address] RBC (Bld) [#/Vol] 4.19 x10*6/uL Low 4.50-5.90 [facility] Comment on above: Performed By: #### 5 7021-8 #### TITUS PAYANMOTZER L ([id number]) [facility] ([facility]) [address] [place] [address] 85261 WBC (Bld) [#/Vol] 5.3 x10*3/uL Normal 4.4-11.3 [facility] Comment on above: Performed By: #### 5 7021-8 #### TITUS Mercado ([id number]) [facility] ([facility]) [address] [place] [address] ECG 12-LEADon 02-11-2024 ECG 12-LEAD Ventricular Rate 63 Atrial Rate 63 P-R Interval 268 QRS Duration 74 Q-T Interval 406 QTC Calculation(Bazett) 415 P [place] 58 R [place] -3 T [place] 18 QRS Count 10 Q Onset 224 P Onset 90 P Offset 149 T Offset 427 QTC Fredericia 412 Diagnosis Sinus rhythm with 1st degree AV block Otherwise normal ECG When compared with ECG of 30-JAN-2019 19:26, heart rate decreased Confirmed by Tobi Rico ([id number]) on 02/12/2024 12:20:00 PM Normal [facility] NICOTINE AND METABOLITES,Son 02-11-2024 Cotinine [Mass/Vol] 152 ng/mL Normal [facility] Comment on above: Performed By: #### N I+ME #### [facility] ([facility]) ([id number]) [address] [place] [address] 74295 Nicotine [Mass/Vol] 6 ng/mL Normal [facility] Comment on above: Result Comment: INTE RPRETIVE [...] developed and its performance characteristics determined by [facility]. It has not been cleared or approved by the [place] Food and Drug Administration. This test was performed in a CLIA certified laboratory and is intended for clinical purposes. Performed By: [facility] [address] [place] [address] 05385 Water Treatment Technician: Chang Bullock MD, PhD CLIA Number: [id number] Performed By: #### N I+ME #### [facility] ([id number]) [address] [place] [address] PT and aPTT panel Coag (PPP) on 02-11-2024 aPTT Coag (PPP) [Time] 33 s Normal 27-38 Un [facility] Comment on above: Order Comment: The A PTT is no longer used for monitoring Unfractionated Heparin Therapy. For monitoring Heparin Therapy, use the Heparin Assay. Performed By: #### 3 4529-8 #### TITUS Mercado ([id number]) [facility] ([facility]) [address] [place], [place] [id number] INR Coag (PPP) [Relative time] 1.0 Normal 0.9-1.1 [facility] Comment on above: Order Comment: The A PTT is no longer used for monitoring Unfractionated Heparin Therapy. For monitoring Heparin Therapy, use the Heparin Assay. Performed By: #### 3 4529-8 #### TITUS Mercado ([id number]) [facility] ([facility]) [address] [place] [address] 20748 PT Coag (PPP) [Time] 11.5 s Normal 9.8-12.8 [facility] Comment on above: Order Comment: The A PTT is no longer used for monitoring Unfractionated Heparin Therapy. For monitoring Heparin Therapy, use the Heparin Assay. Performed By: #### 3 4529-8 #### TITUS Mercado ([id number]) [facility] ([facility]) [address] [place] [address] 66920 Staphylococcus aureus.methic illin resistant isolateon 02-11-2024 MRSA isol Org specific cx Ql (Nose) Test: Staphylococcus aureus/MRSA colonization, Culture Specimen Source: Anterior Nares Specimen Type: Swab Specimen Date: 02/11/2024 150 Result Date: 02/13/2024825 Result Status: Final result Abnormal: No Resulting Lab: [facility] [address] [place] [address] 98847 CULTURE No Staphylococcus aureus isolated Normal [facility] Comment on above: Performed By: #### 5 2969-3 #### TITUS Mercado ([id number]) [facility] ([facility]) [address] [place] [address] 73341 Urinalysis complete W Reflex Culture panel (U)on 02-11-2024 Appearance (U) Clear Normal Clear [facility] Comment on above: Performed By: #### 5 8077-9 #### TITUS Mercado ([id number]) [facility] ([facility]) [address] [place] [address] 95683 Bilirubin (U) [Mass/Vol] Negative Normal NEGATIVE [facility] Comment on above: Performed By: #### 5 8077-9 #### TITUS Mercado ([id number]) [facility] ([facility]) [address] [place] [address] 22247 Color (U) Colorless Normal Light-[place] ow, Yellow, Dark-Yello w [facility] Comment on above: Performed By: #### 5 8077-9 #### TITUS Mercado ([id number]) [facility] ([facility]) [address] [place] [address] 73291 Glucose Auto test strip (U) [Mass/Vol] Normal Normal Normal [facility] Comment on above: Performed By: #### 5 8077-9 #### TITUS SOLORZANO L ([id number]) [facility] ([facility]) [address] [place] [address] 20403 Ketones (U) [Mass/Vol] Negative Normal NEGATIVE [facility] Comment on above: Performed By: #### 5 8077-9 #### TITUS Mercado ([id number]) [facility] ([facility]) [address] [place] [address] 21095 Leukocyte esterase Auto test strip Ql (U) Negative Normal NEGATIVE [facility] Comment on above: Performed By: #### 5 8077-9 #### TITUS SOLORZANO L ([id number]) [facility] ([facility]) [address] [place] [address] 20185 Nitrite Auto test strip Ql (U) Negative Normal NEGATIVE [facility] Comment on above: Performed By: #### 5 8077-9 #### TITUS Mercado ([id number]) [facility] ([facility]) [address] [place] [address] 79764 pH (U) 5.5 [pH] Normal 5.0, 5.5, 6.0, 6.5, 7.0, 7.5, 8.0 [facility] Comment on above: Performed By: #### 5 8077-9 #### TITUS Mercado ([id number]) [facility] ([facility]) [address] [place] [address] 63827 Protein (U) [Mass/Vol] Negative Normal NEGAT CELESTE, 10 (TRACE), 20 (TRACE) [facility] Comment on above: Performed By: #### 5 8077-9 #### TITUS Mercado ([id number]) [facility] ([facility]) [address] [place] [address] 04371 RBC (U) [#/Vol] Negative Normal NEGATIVE [facility] Comment on above: Performed By: #### 5 8077-9 #### TITUS Mercado ([id number]) [facility] ([facility]) [address] [place] [address] 35759 Specific gravity (U) [Rel density] 1.007 Normal 1.005-1.[address] [place] [address] Comment on above: Performed By: #### 5 8077-9 #### TITUS Mercado ([id number]) [facility] ([facility]) [address] [place] [address] 04912 Urobilinogen (U) [Mass/Vol] Normal Normal Normal [facility] Comment on above: Performed By: #### 5 8077-9 #### TITUS Mercado ([id number]) [facility] ([facility]) [address] [place] [address] 62302 MR BRAIN TUMOR PERFUSION PRO TOCOL W AND WO IV CONTRASTon 12-13-2023 MR BRAIN TUMOR PERFUSION PROTOCOL W AND WO IV CONTRAST Interpreted By: Nate Benavidez, STUDY: MR BRAIN TUMOR PERFUSION PROTOCOL W AND WO IV CONTRAST; 12/13/2023 8:49 am INDICATION: Signs/Symptoms:pontine lesion, imaging surveillance. COMPARISON: None. ACCESSION NUMBER(S): [id number] ORDERING CLINICIAN: SHIMON ORONA TECHNIQUE: Axial diffusion, [...] Nate Benavidez 12/13/2023 9:38 AM Dictation workstation: [id number] [facility] Comment on above: Order Comment: JESSICA huerta [facility] CNOVSP Visit (SP) Office ([place]) ----- JOVANI MELENDEZ ([id number]) 1960 M Date Time Provider Department 11/02/23 9:45 AM MEMO COLE During your visit today, we recorded the following information about you: Temperature Pulse Respiration Blood pressure 97.7 degrees 72/minute 16/minute 130/76 Weight Height 79.7 kg 1.706 m Memo Cole MD 11/03/2023 12:15 PM Signed NAME: Jovani Melendez CLINIC NO.: [id number] DATE OF SERVICE: November 02, 2023 (Curtis) Some elements in this clinic note that are critical to medical decision making have been carefully reviewed and included from a prior clinic note dated: November 03, 2022 (Curtis). Referring Provider: Griselda Krause, DO Additional Clinicians involved in Jovani Melendez's care: Dr Kimberly Nichole ENT, Dr. 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 10/05/2021 - MRI Brain: [facility] There is T2 and T2 flair hyperintense [...] involving the (more content not included)... Normal [facility] Basophils Auto (Bld) [#/Vol] on 10-26-2023 Basophils (Bld) [#/Vol] 0.04 10*3/uL <0.11 [facility] Basophils/100 WBC Auto (Bld) on 10-26-2023 Basophils/100 WBC (Bld) 0.5 % [facility] Blood manual differential co mment interpretation narrativeon 10-26-2023 Manual differential comment Curtis (Bld) [Interp] Auto [facility] CBC W Auto Differential pane l (Bld)on 10-26-2023 Basophils (Bld) [#/Vol] 0.04 10*3/uL Normal <0.11 [facility] Comment on above: Order Comment: Speci men Type: BLOOD SPECIMEN Ordering Facility: [facility] Address: [address] [place] [address] Performed By: #### 5 7021-8 #### [facility] CLIA [id number] [address] [place] [address] 15540 Basophils/100 WBC (Bld) 0.5 % Normal [facility] Comment on above: Order Comment: Speci men Type: BLOOD SPECIMEN Ordering Facility: [facility] Address: [address] [place] [address] Performed By: #### 5 7021-8 #### [facility] CLIA [id number] [address] [place] [address] 18589 Differential cell count method Nom (Bld) Auto Normal [facility] Comment on above: Order Comment: Speci men Type: BLOOD SPECIMEN Ordering Facility: [facility] Address: [address] [place] [address] Performed By: #### 5 7021-8 #### [facility] CLIA [id number] [address] [place] [address] 75531 Eosinophils (Bld) [#/Vol] 0.13 10*3/uL Normal <0.46 [facility] Comment on above: Order Comment: Speci men Type: BLOOD SPECIMEN Ordering Facility: [facility] Address: [address] [place] [address] Performed By: #### 5 7021-8 #### [facility] CLIA [id number] [address] [place] [address] 52313 Eosinophils/100 WBC (Bld) 1.5 % Normal [facility] Comment on above: Order Comment: Speci men Type: BLOOD SPECIMEN Ordering Facility: [facility] Address: [address] [place] [address] Performed By: #### 5 7021-8 #### [facility] CLIA [id number] [address] [place] [address] 17507 Erythrocyte distribution width (RBC) [Ratio] 13.8 % Normal 11.5-15.0 [facility] Comment on above: Order Comment: Speci men Type: BLOOD SPECIMEN Ordering Facility: [facility] Address: [address] [place] [address] Performed By: #### 5 7021-8 #### [facility] CLIA [id number] [address] [place] [address] 95934 Hematocrit (Bld) [Volume fraction] 42.6 % Normal 39.0-51.0 [facility] Comment on above: Order Comment: Speci men Type: BLOOD SPECIMEN Ordering Facility: [facility] Address: [address] [place] [address] Performed By: #### 5 7021-8 #### [facility] CLIA [id number] [address] [place] [address] 41713 Hemoglobin (Bld) [Mass/Vol] 14.4 g/dL Normal 13.0-17.0 [facility] Comment on above: Order Comment: Speci men Type: BLOOD SPECIMEN Ordering Facility: [facility] Address: [address] [place] [address] 36027 Performed By: #### 5 7021-8 #### [facility] CLIA [id number] [address] [place] [address] 42727 Immature granulocytes (Bld) [#/Vol] 0.03 10*3/uL Normal <0.10 [facility] Comment on above: Order Comment: Speci men Type: BLOOD SPECIMEN Ordering Facility: [facility] Address: [address] [place] [address] Performed By: #### 5 7021-8 #### [facility] CLIA [id number] [address] [place] [address] Immature granulocytes/100 WBC (Bld) 0.3 % Normal [facility] Comment on above: Order Comment: Speci men Type: BLOOD SPECIMEN Ordering Facility: [facility] Address: [address] [place] [address]1977 Performed By: #### 5 7021-8 #### [facility] CLIA [id number] [address] [place] [address] Lymphocytes (Bld) [#/Vol] 2.18 10*3/uL Normal 1.00-4.00 [facility] Comment on above: Order Comment: Speci men Type: BLOOD SPECIMEN Ordering Facility: [facility] Address: [address] [place] [address] 57298 Performed By: #### 5 7021-8 #### [facility] CLIA [id number] [address] [place] [address] 27279 Lymphocytes/100 WBC (Bld) 24.8 % Normal [facility] Comment on above: Order Comment: Speci men Type: BLOOD SPECIMEN Ordering Facility: [facility] Address: [address] [place] [address] 03683 Performed By: #### 5 7021-8 #### [facility] CLIA [id number] [address] [place] [address] 64444 MCH (RBC) [Entitic mass] 32.0 pg Normal 26.0-34.0 [facility] Comment on above: Order Comment: Speci men Type: BLOOD SPECIMEN Ordering Facility: [facility] Address: [address] [place] [address] 40326 Performed By: #### 5 7021-8 #### [facility] CLIA [id number] [address] [place] [address] 72431 MCHC (RBC) [Mass/Vol] 33.8 g/dL Normal 30.5-36.0 [facility] Comment on above: Order Comment: Speci men Type: BLOOD SPECIMEN Ordering Facility: [facility] Address: [address] [place] [address] Performed By: #### 5 7021-8 #### [facility] CLIA [id number] [address] [place] [address] 50365 MCV (RBC) [Entitic vol] 94.7 fL Normal 80.0-100.0 [facility] Comment on above: Order Comment: Speci men Type: BLOOD SPECIMEN Ordering Facility: [facility] Address: [address] [place] [address] Performed By: #### 5 7021-8 #### [facility] CLIA [id number] [address] [place] [address] 82835 Monocytes (Bld) [#/Vol] 0.60 10*3/uL Normal <0.87 [facility] Comment on above: Order Comment: Speci men Type: BLOOD SPECIMEN Ordering Facility: [facility] Address: [address] [place] [address] Performed By: #### 5 7021-8 #### [facility] CLIA [id number] [address] [place] [address] 27907 Monocytes/100 WBC (Bld) 6.8 % Normal [facility] Comment on above: Order Comment: Speci men Type: BLOOD SPECIMEN Ordering Facility: [facility] Address: [address] [place] [address] Performed By: #### 5 7021-8 #### [facility] CLIA [id number] [address] [place] [address] 48371 Neutrophils (Bld) [#/Vol] 5.80 10*3/uL Normal 1.45-7.50 [facility] Comment on above: Order Comment: Speci men Type: BLOOD SPECIMEN Ordering Facility: [facility] Address: [address] [place] [address] Performed By: #### 5 7021-8 #### [facility] CLIA [id number] [address] [place] [address] 71524 Neutrophils/100 WBC (Bld) 66.1 % Normal [facility] Comment on above: Order Comment: Speci men Type: BLOOD SPECIMEN Ordering Facility: [facility] Address: [address] [place] [address] Performed By: #### 5 7021-8 #### [facility] CLIA [id number] [address] [place] [address] Nucleated RBC (Bld) [#/Vol] 10*3/uL Normal <0.01 [facility] Comment on above: Order Comment: Speci men Type: BLOOD SPECIMEN Ordering Facility: [facility] Address: [address] [place] [address] Performed By: #### 5 7021-8 #### [facility] CLIA [id number] [address] [place] [address] 05494 Nucleated RBC/100 WBC (Bld) [Ratio] 0.0 /100 WBC Normal [facility] Comment on above: Order Comment: Speci men Type: BLOOD SPECIMEN Ordering Facility: [facility] Address: [address] [place] [address] Performed By: #### 5 7021-8 #### [facility] CLIA [id number] [address] [place] [address] 47949 Platelet mean volume (Bld) [Entitic vol] 10.2 fL Normal 9.0-12.7 [facility] Comment on above: Order Comment: Speci men Type: BLOOD SPECIMEN Ordering Facility: [facility] Address: [address] [place] [address] Performed By: #### 5 7021-8 #### [facility] CLIA [id number] [address] [place] [address] 72862 Platelets (Bld) [#/Vol] 314 10*3/uL Normal 150-400 [facility] Comment on above: Order Comment: Speci men Type: BLOOD SPECIMEN Ordering Facility: [facility] Address: [address] [place] [address] Performed By: #### 5 7021-8 #### [facility] CLIA [id number] [address] [place] [address] 41922 RBC (Bld) [#/Vol] 4.50 10*6/uL Normal 4.20-6.00 [facility] Comment on above: Order Comment: Speci men Type: BLOOD SPECIMEN Ordering Facility: [facility] Address: [address] [place], [place] [address] Performed By: #### 5 7021-8 #### [facility] CLIA [id number] [address] [place] [address] 26358 WBC (Bld) [#/Vol] 8.78 10*3/uL Normal 3.70-11.00 [facility] Comment on above: Order Comment: Speci men Type: BLOOD SPECIMEN Ordering Facility: [facility] Address: [address] [place], [place] [address] Performed By: #### 5 7021-8 #### [facility] CLIA [id number] [address] [place] [address] 03728 Basophils (Bld) [#/Vol] 0.04 10*3/uL [facility] Basophils/100 WBC (Bld) 0.5 % [facility] Differential cell count method Nom (Bld) Auto [facility] Eosinophils (Bld) [#/Vol] 0.13 10*3/uL [facility] Eosinophils/100 WBC (Bld) 1.5 % [facility] Erythrocyte distribution width (RBC) [Ratio] 13.8 % 11.5 - 15.0 % [facility] Hematocrit (Bld) [Volume fraction] 42.6 % 39.0 - 51.0 % [facility] Hemoglobin (Bld) [Mass/Vol] 14.4 g/dL 13.0 - 17.0 g/dL [facility] Immature granulocytes (Bld) [#/Vol] 0.03 10*3/[facility]L [facility] Immature granulocytes/100 WBC (Bld) 0.3 % [facility] Lymphocytes (Bld) [#/Vol] 2.18 10*3/uL [facility] Lymphocytes/100 WBC (Bld) 24.8 % [facility] MCH (RBC) [Entitic mass] 32.0 pg 26.0 - 34.0 pg [facility] MCHC (RBC) [Mass/Vol] 33.8 g/dL 30.5 - 36.0 g/dL [facility] MCV (RBC) [Entitic vol] 94.7 fL 80.0 - 100.0 fL [facility] Monocytes (Bld) [#/Vol] 0.60 10*3/uL [facility] Monocytes/100 WBC (Bld) 6.8 % [facility] Neutrophils (Bld) [#/Vol] 5.80 10*3/uL [facility] Neutrophils/100 WBC (Bld) 66.1 % [facility] Nucleated RBC (Bld) [#/Vol] NINF [facility] Nucleated RBC/100 WBC (Bld) [Ratio] 0.0 % /100 WBC [facility] Platelet mean volume (Bld) [Entitic vol] 10.2 fL 9.0 - 12.7 fL [facility] Platelets (Bld) [#/Vol] 314 10*3/uL [facility] RBC (Bld) [#/Vol] 4.50 10*6/uL 4.20 - 6.00 m/uL [facility] WBC (Bld) [#/Vol] 8.78 10*3/uL [facility] CT CHEST W IVCONon CT CHEST W IVCON * * *Final Report* * * DATE OF EXAM: Oct 26 2023 10:05AM [facility] 0539 - CT CHEST W [...] any questions regarding this interpretation, please call [phone]. If you are unable to reach us at the number above, please feel free to contact [facility] eRadiology at [phone]. [id number] Normal [facility] CT Chest W contrast Tristin IMPRESSION: 1. New streaky scarring/discoid atelectasis in the bilateral lower lung mcgrath. 2. Subcentimeter nodular opacities measuring less than 5 mm, stable since 04/08/20. 3. No evidence of intrathoracic metastases. Transcribe Date/Time: Oct 26 2023 1:36P Dictated by: ANA CHAKRABORTY MD This examination was interpreted and the report reviewed and electronically signed by: ANA CHAKRABORYT MD on Oct 26 2023 2:26PM EST Thank you for allowing us to participate in the care of your patient. Should there be any questions regarding this interpretation, please call [phone]. If you are unable to reach us at the number above, please feel free to contact [facility] at [phone]. DIVISION OF RADIOLOGY * * *Final Report* * * DATE OF EXAM: Oct 26 2023 10:05AM [facility] 0539 - CT CHEST W [...] No additional findings. DIVISION OF RADIOLOGY Provider, Dacia Guillory - 10/26/2023 * * *Final Report* * * DATE OF EXAM: Oct 26 2023 10:05AM [facility] 0539 - CT CHEST W [...] any questions regarding this interpretation, please call [phone]. If you are unable to reach us at the number above, please feel free to contact [facility] eRadiology at [phone]. 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 Resected T1 N1 base [...] normal. Parotid and submandibular spaces are normal. Mechanical Engineering Intern spaces appear normal. Infrahyoid Neck: Hypopharynx, larynx, [...] are clear of focal consolidation or mass. [employer] (topogram) images: Noncontributory IMPRESSION: Primary: 1: Expected post-treatment changes in the neck without evidence of recurrent disease in the primary site. Neck: 1: No evidence of abnormal lymph nodes. [email or web address] Transcribe Date/Time: Oct 26 2023 10:15A Dictated by: LIMA LIZ MD This examination was interpreted and the report reviewed and electronically signed by: LIMA LIZ MD on Oct 26 2023 10:35AM EST Thank you for allowing us to participate in the care of your patient. Should there be any questions regardi (more content not included)... Normal [facility] CT Neck W contrast Tristin 05-1 IMPRESSION: Primary: 1: Expected post-treatment changes in the neck without evidence of recurrent disease in the primary site. Neck: 1: No evidence of abnormal lymph nodes. [email or web address] Transcribe Date/Time: Oct 26 2023 10:15A Dictated by: LIMA LIZ MD This examination was interpreted and the report reviewed and electronically signed by: LIMA LIZ MD on Oct 26 2023 10:35AM EST Thank you for allowing us to participate in the care of your patient. Should there be any questions regarding this interpretation, please call [phone]. If you are unable to reach us at the number above, please feel free to contact [facility] at [phone]. 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 Resected T1 N1 base [...] normal. Parotid and submandibular spaces are normal. Mechanical Engineering Intern spaces appear normal. Infrahyoid Neck: Hypopharynx, larynx, [...] are clear of focal consolidation or mass. [employer] Operator (topogram) images: Noncontributory DIVISION OF RADIOLOGY Provider, 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 Resected T1 N1 base [...] normal. Parotid and submandibular spaces are normal. Mechanical Engineering Intern spaces appear normal. Infrahyoid Neck: Hypopharynx, larynx, [...] are clear of focal consolidation or mass. [employer] Operator (topogram) images: Noncontributory IMPRESSION IMPRESSION: Primary: 1: Expected post-treatment changes in the neck without evidence of recurrent disease in the primary site. Neck: 1: No evidence of abnormal lymph nodes. [email or web address] Transcribe Date/Time: Oct 26 2023 10:15A Dictated by: LIMA LIZ MD This examination was interpreted and the report reviewed and electronically signed by: (more content not included)... [facility] CT Neck W contrast IVOrdered By: [facility] Provider on 10-26-2023 [facility] Comprehensive metabolic 2000 panelon 10-26-2023 Albumin [Mass/Vol] 4.3 g/dL Normal 3.9-4.9 [facility] Comment on above: Order Comment: Speci men Type: BLOOD SPECIMEN Ordering Facility: [facility] Address: [address] [place] [address] Performed By: #### 2 4323-8 #### [facility] CLIA [id number] [address] [place] [address] ALP [Catalytic activity/Vol] 75 U/L Normal 38-113 [facility] Comment on above: Order Comment: Speci men Type: BLOOD SPECIMEN Ordering Facility: [facility] Address: [address] [place] [address] Performed By: #### 2 4323-8 #### [facility] CLIA [id number] [address] [place] [address] ALT [Catalytic activity/Vol] 10 U/L Normal 10-54 [facility] Comment on above: Order Comment: Speci men Type: BLOOD SPECIMEN Ordering Facility: [facility] Address: [address] [place] [address] Performed By: #### 2 4323-8 #### [facility] CLIA [id number] [address] [place] [address] 04978 Anion gap [Moles/Vol] 8 mmol/L Low 9-18 [facility] Comment on above: Order Comment: Speci men Type: BLOOD SPECIMEN Ordering Facility: [facility] Address: [address] [place] [address] Performed By: #### 2 4323-8 #### [facility] CLIA [id number] [address] [place] [address] AST [Catalytic activity/Vol] 9 U/L Low 14-40 [facility] Comment on above: Order Comment: Speci men Type: BLOOD SPECIMEN Ordering Facility: [facility] Address: [address] [place], [place] [address] Performed By: #### 2 4323-8 #### [facility] CLIA [id number] [address] [place] [address] 49803 Bilirubin [Mass/Vol] 0.5 mg/dL Normal 0.2-1.[address] [facility] Comment on above: Order Comment: Speci men Type: BLOOD SPECIMEN Ordering Facility: [facility] Address: [address] [place] [id number] Performed By: #### 2 4323-8 #### [facility] CLIA [id number] [address] [place] [address] 38174 Calcium [Mass/Vol] 9.9 mg/dL Normal 8.5-10.2 [facility] Comment on above: Order Comment: Speci men Type: BLOOD SPECIMEN Ordering Facility: [facility] Address: [address] [place] [address] Performed By: #### 2 4323-8 #### [facility] CLIA [id number] [address] [place] [address] Chloride [Moles/Vol] 106 mmol/L High 97-[address] [facility] Comment on above: Order Comment: Speci men Type: BLOOD SPECIMEN Ordering Facility: [facility] Address: [address] [place] [address] Performed By: #### 2 4323-8 #### [facility] CLIA [id number] [address] [place] [address] CO2 [Moles/Vol] 27 mmol/L Normal 22-30 [facility] Comment on above: Order Comment: Speci men Type: BLOOD SPECIMEN Ordering Facility: [facility] Address: [address] [place] [address] Performed By: #### 2 4323-8 #### [facility] CLIA [id number] [address] [place] [address] 10832 Creatinine [Mass/Vol] 1.01 mg/dL Normal 0.73-1.22 [facility] Comment on above: Order Comment: Speci men Type: BLOOD SPECIMEN Ordering Facility: [facility] Address: [address] [place] [address] Performed By: #### 2 4323-8 #### [facility] CLIA [id number] [address] [place] [address]496 Creatinine and Glomerular filtration rate.predicted panel (S/P/Bld) 85 mL/min/1.73m??? Normal >=60 [facility] Comment on above: Order Comment: Speci men Type: BLOOD SPECIMEN Ordering Facility: [facility] Address: [address] [place] [address] Result Comment: Charisse mated Glomerular Filtration Rate [...] GFR. Performed By: #### 2 4323-8 #### [facility] CLIA [id number] [address] [place] [address] 31003 Glucose [Mass/Vol] 89 mg/dL Normal 74-99 [facility] Comment on above: Order Comment: Speci men Type: BLOOD SPECIMEN Ordering Facility: [facility] Address: [address] [place] [id number] Result Comment: The [place] [employer] (ADA) provides guidance for cutoff [...] Standards of Medical Care in Diabetes 2016, [place] [employer]. Diabetes Care. 2016.39(Suppl 1). Performed By: #### 2 4323-8 #### [facility] CLIA [id number] [address] [place] [address] 82745 Potassium [Moles/Vol] 4.0 mmol/L Normal 3.7-5.1 [facility] Comment on above: Order Comment: Speci men Type: BLOOD SPECIMEN Ordering Facility: [facility] Address: [address] [place] [address] Performed By: #### 2 4323-8 #### [facility] CLIA [id number] [address] [place] [address] 96977 Protein [Mass/Vol] 6.4 g/dL Normal 6.3-8.0 [facility] Comment on above: Order Comment: Speci men Type: BLOOD SPECIMEN [facility] [facility] Address: [address] [place] [address] Performed By: #### 2 4323-8 #### [facility] CLIA [id number] [address] [place] [address] Sodium [Moles/Vol] 141 mmol/L Normal 136-144 [facility] Comment on above: Order Comment: Speci men Type: BLOOD SPECIMEN Ordering Facility: [facility] Address: [address] [place] [address] Performed By: #### 2 4323-8 #### [facility] CLIA [id number] [address] [place] [address] Urea nitrogen [Mass/Vol] 16 mg/dL Normal 9-24 [facility] Comment on above: Order Comment: Speci men Type: BLOOD SPECIMEN Ordering Facility: [facility] Address: [address] [place] [id number] Performed By: #### 2 4323-8 #### [facility] CLIA [id number] [address] [place] [address] Comprehensive metabolic 2000 panelOrdered By: Pauly Chan on 10-26-2023 Albumin [Mass/Vol] 4.3 g/dL 3.9 - 4.9 g/dL [facility] ALP [Catalytic activity/Vol] 75 U/L 38 - 113 U/L [facility] ALT [Catalytic activity/Vol] 10 U/L 10 - 54 U/L [facility] Anion gap [Moles/Vol] 8 mmol/L Low 9 - 18 mmol/L [facility] AST [Catalytic activity/Vol] 9 U/L Low 14 - 40 U/L [facility] Bilirubin [Mass/Vol] 0.5 mg/dL 0.2 - 1 .3 mg/dL [facility] Calcium [Mass/Vol] 9.9 mg/dL 8.5 - 10. 2 mg/dL [facility] Chloride [Moles/Vol] 106 mmol/L High 97 - 10 5 mmol/L [facility] CO2 [Moles/Vol] 27 mmol/L 22 - 30 mmol/L [facility] Creatinine [Mass/Vol] 1.01 mg/dL 0.73 - 1.22 mg/dL [facility] GFR/1.73 sq M.predicted among non-blacks MDRD (S/P/Bld) [Vol rate/Area] 85 mL/min/{1.73_m2} - PINF [facility] Comment on above: Estimated Glomerular Filtration Rate [...] [Mass/Vol] 89 mg/dL 74 - 99 mg/dL [facility] Comment on above: The [place] [employer] Association (ADA) provides guidance for [...] Standards of Medical Care in Diabetes 2016, [place] [employer]. Diabetes Care. 2016.39(Suppl 1). Interpretation and review of laboratory results Abnormal [facility] Potassium [Moles/Vol] 4.0 mmol/L 3.7 - 5.1 mmol/L [facility] Protein [Mass/Vol] 6.4 g/dL 6.3 - 8.0 g/dL [facility] Sodium [Moles/Vol] 141 mmol/L 136 - 144 mmol/L [facility] Urea nitrogen [Mass/Vol] 16 mg/dL 9 - 24 mg/dL [facility] Eosinophils/100 WBC Auto (Bl d)on 10-26-2023 Eosinophils/100 WBC (Bld) 1.5 % [facility] Erythrocyte distribution wid th Auto (RBC) [Ratio]on 10-26-2023 Erythrocyte distribution width (RBC) [Ratio] 13.8 % 11.5-15.0 [facility] Hematocrit Auto (Bld) [Volum e fraction]on 10-26-2023 Hematocrit (Bld) [Volume fraction] 42.6 % 39.0-51.0 [facility] Hemoglobin [Mass/volume] in Bloodon 10-26-2023 Hemoglobin (Bld) [Mass/Vol] 14.4 g/dL 13.0-17.0 [facility] - Chemistry and C hemistry - challengeon 10-26-2023 Albumin [Mass/Vol] 4.3 g/dL 3.9-4.[address] [facility] ALP [Catalytic activity/Vol] 75 U/L 38-113 [facility] ALT [Catalytic activity/Vol] 10 U/L 10-54 [facility] AST [Catalytic activity/Vol] 9 U/L 14-40 [facility] Bilirubin [Mass/Vol] 0.5 mg/dL 0.2-1.3 [facility] Calcium [Mass/Vol] 9.9 mg/dL 8.5-10.[address] [facility] Chloride [Moles/Vol] 106 mmol/L 97-105 [facility] CO2 [Moles/Vol] 27 mmol/L 22-30 [facility] Creatinine [Mass/Vol] 1.01 mg/dL 0.73-1.22 [facility] Glucose [Mass/Vol] 89 mg/dL 74-[address] [facility] Comment on above: The [place] Diab[employer] Association (ADA) provides guidance for [...] Standards of Medical Care in Diabetes 2016, [place] [employer]. Diabetes Care. 2016.39(Suppl 1). Potassium [Moles/Vol] 4.0 mmol/L 3.7-5.1 [facility] Sodium [Moles/Vol] 141 mmol/L 136-[address] [facility] Urea nitrogen [Mass/Vol] 16 mg/dL 9-24 [facility] - Hematology and Cell countson 10-26-2023 Eosinophils (Bld) [#/Vol] 0.13 10*3/uL <0.46 [facility] Immature granulocytes (Bld) [#/Vol] 0.03 10*3/uL <0.10 [facility] Immature granulocytes/100 WBC (Bld) 0.3 % [facility] Leukocytes [#/volume] correc mone for nucleated erythrocytes in Blood by Automated counon 10-26-2023 WBC corrected for nucl RBC Auto (Bld) [#/Vol] 8.78 k/uL 3.70-11.00 [facility] Lymphocytes Auto (Bld) [#/Vo l]on 10-26-2023 Lymphocytes (Bld) [#/Vol] 2.18 10*3/uL 1.00-4.00 [facility] Lymphocytes/100 WBC Auto (Bl d)on 10-26-2023 Lymphocytes/100 WBC (Bld) 24.8 % [facility] MCH Auto (RBC) [Entitic mass ]on 10-26-2023 MCH (RBC) [Entitic mass] 32.0 pg 26.0-34.0 [facility] MCHC Auto (RBC) [Mass/Vol]on 10-26-2023 MCHC (RBC) [Mass/Vol] 33.8 g/dL 30.5-36.0 [facility] MCV Auto (RBC) [Entitic vol] on 10-26-2023 MCV (RBC) [Entitic vol] 94.7 fL 80.0-100.0 [facility] Monocytes Auto (Bld) [#/Vol] on 10-26-2023 Monocytes (Bld) [#/Vol] 0.60 10*3/uL <0.87 [facility] Monocytes/100 WBC Auto (Bld) on 10-26-2023 Monocytes/100 WBC (Bld) 6.8 % [facility] Neutrophils Auto (Bld) [#/Vo l]on 10-26-2023 Neutrophils (Bld) [#/Vol] 5.80 10*3/uL 1.45-7.50 [facility] Neutrophils/100 WBC Auto (Bl d)on 10-26-2023 Neutrophils/100 WBC (Bld) 66.1 % [facility] No Panel Informationon 10-25 Radiology Study observation (narrative) [facility] Estimated GFR (CKD-EPI) 85 mL/min/1.73m??? >=60 [facility] Comment on above: Estimated Glomerular Filtration Rate [...] 10-26-2023 Nucleated RBC (Bld) [#/Vol] 10*3/uL <0.01 [facility] Nucleated erythrocytes [Pres ence] in Blood by Automated counton 10-26-2023 Nucleated RBC Auto Ql (Bld) 0.0 /100{WBC} [facility] Platelet mean volume Auto (B ld) [Entitic vol]on 10-26-2023 Platelet mean volume (Bld) [Entitic vol] 10.2 fL 9.0-12.7 [facility] Platelets Auto (Bld) [#/Vol] on 10-26-2023 Platelets (Bld) [#/Vol] 314 10*3/uL 150-400 [facility] Protein [Mass/volume] in Ser um or Plasmaon 10-26-2023 Protein [Mass/Vol] 6.4 g/dL 6.3-8.[address] [facility] RBC Auto (Bld) [#/Vol]on RBC (Bld) [#/Vol] 4.50 10*6/uL 4.20-6.00 [facility] Serum or plasma anion gap de terminationon 10-26-2023 Anion gap [Moles/Vol] 8 mmol/L 9-18 [facility] XR CERVICAL SPINE AP/LAT/FLE X/EXTon 10-16-2023 [...] 10-09-2023 ALT [Catalytic activity/Vol] 8 U/L 7-52 [facility] Albumin [Mass/volume] in Ser um or Plasma by Bromocresol green (BCG) dye binding methoOrdered By: Griselda Krause on 10-09-2023 Albumin BCG dye [Mass/Vol] 3.9 g/dL 3.5-5.7 [facility] Alkaline phosphatase [Enzyma tic activity/volume] in Serum or PlasmaOrdered By: Griselda Krause on 10-09-2023 ALP [Catalytic activity/Vol] 59 U/L 34-104 [facility] Aspartate aminotransferase [ Enzymatic activity/volume] in Serum or PlasmaOrdered By: Griselda Krause on 10-09-2023 AST [Catalytic activity/Vol] 7 U/L 13-39 [facility] Basophils Auto (Bld) [#/Vol] Ordered By: Griselda Krause on 10-09-2023 Basophils (Bld) [#/Vol] 0.1 10*3/uL 0.0-0.2 [facility] Basophils/100 WBC Auto (Bld) Ordered By: Griselda Krause on 10-09-2023 Basophils/100 WBC (Bld) 0.9 % . [facility] Bilirubin.total [Mass/volume ] in Serum or PlasmaOrdered By: Griselda Krause on 10-09-2023 Bilirubin [Mass/Vol] 0.5 mg/dL 0.3-1.0 [facility] BioFire Not Detectedon 10-08 BioFire Not Detected Not detected Normal Not Detecte [facility] Comment on above: Result Comment: This is a duplicate RP2.1 COVID (PCR) result to be used for statistical tracking purpose only. PERFORMED BY: [facility] [address] [place] [address] PATHOLOGIST COOK VACUUM KETTLE CARMEN LYNCH M.D. Performed By: #### R DYAN PANEL UPP., CMP, BIOFIRECOVNOTDE, CBC ####[facility] [id number] COVID-19 Detected/Not Detect edOrdered By: Griselda Krause on 10-09-2023 SARS-CoV-2 (COVID-19) RNA JER+non-probe Ql (Nph) Not detected Not Detecte [facility] Comment on above: This is a duplicate RP2.1 COVID (PCR) result to be used for statistical tracking purpose only. Calcium [Mass/volume] in Ser um or PlasmaOrdered By: Griselda Krause on 10-09-2023 Calcium [Mass/Vol] 9.5 mg/dL 8.6-10.[address] [facility] Carbon dioxide, total [Moles /volume] in Serum or PlasmaOrdered By: Griselda Krause on 10-09-2023 CO2 [Moles/Vol] 30.0 mmol/L 21.0-31.0 [facility] Chloride [Moles/volume] in S rica or PlasmaOrdered By: Griselda Krause on 10-09-2023 Chloride [Moles/Vol] 103 mmol/L 98-107 [facility] Complete Blood Count Auto Di ffon 10-09-2023 Basophils (Bld) [#/Vol] 0.1 10*3/uL Normal 0.0-0.2 [facility] Comment on above: Result Comment: PERF ORMED BY: [facility] [address] [place] [address] PATHOLOGIST COOK VACUUM KETTLE CARMEN LYNCH M.D. Performed By: #### R DYAN PANEL UPP., CMP, BIOFIRECOVNOTDE, CBC ####[facility] [id number] Basophils/100 WBC (Bld) 0.9 % Normal . [facility] Comment on above: Performed By: #### R DYAN PANEL UPP., CMP, BIOFIRECOVNOTDE, CBC ####[facility] [id number] Eosinophils (Bld) [#/Vol] 0.1 10*3/uL Normal 0.0-0.45 [facility] Comment on above: Performed By: #### R DYAN PANEL UPP., CMP, BIOFIRECOVNOTDE, CBC ####[address] Eosinophils/100 WBC (Bld) 1.0 % Normal . [facility] Comment on above: Performed By: #### R DYAN PANEL UPP., CMP, BIOFIRECOVNOTDE, CBC ####[address] Erythrocyte distribution width (RBC) [Ratio] 14.3 % Normal 12.0-14.8 [facility] Comment on above: Performed By: #### R DYAN PANEL UPP., CMP, BIOFIRECOVNOTDE, CBC ####[address] Hematocrit (Bld) [Volume fraction] 41.9 % Normal 38.8-50.0 [facility] Comment on above: Performed By: #### R DYAN PANEL UPP., CMP, BIOFIRECOVNOTDE, CBC ####[address] Hemoglobin (Bld) [Mass/Vol] 14.4 g/dL Normal 13.0-17.0 [facility] Comment on above: Performed By: #### R DYAN PANEL UPP., CMP, BIOFIRECOVNOTDE, CBC ####[address] Lymphocytes (Bld) [#/Vol] 2.7 10*3/uL Normal 1.00-4.8 [facility] Comment on above: Performed By: #### R DYAN PANEL UPP., CMP, BIOFIRECOVNOTDE, CBC ####[address] Lymphocytes/100 WBC (Bld) 33.6 % Normal . [facility] Comment on above: Performed By: #### R DYAN PANEL UPP., CMP, BIOFIRECOVNOTDE, CBC ####[address] MCH (RBC) [Entitic mass] 32.7 pg Normal 27.5-35.2 [facility] Comment on above: Performed By: #### R DYAN PANEL UPP., CMP, BIOFIRECOVNOTDE, CBC ####[address] MCV (RBC) [Entitic vol] 94.8 fL Normal 83.5-101 [facility] Comment on above: Performed By: #### R DYAN PANEL UPP., CMP, BIOFIRECOVNOTDE, CBC ####[address] Mean Corpuscular HGB Conc 34.4 g/dL Normal 32.5-35.6 [facility] Comment on above: Performed By: #### R DYNA PANEL UPP., CMP, BIOFIRECOVNOTDE, CBC ####[address] Monocytes (Bld) [#/Vol] 0.6 10*3/uL Normal 0.0-0.8 [facility] Comment on above: Performed By: #### R DYAN PANEL UPP., CMP, BIOFIRECOVNOTDE, CBC ####[address] Monocytes/100 WBC (Bld) 7.5 % Normal . [facility] Comment on above: Performed By: #### R YDAN PANEL UPP., CMP, BIOFIRECOVNOTDE, CBC ####[address] Neutrophils (Bld) [#/Vol] 4.6 10*3/uL Normal 1.8-7.7 [facility] Comment on above: Performed By: #### R DYAN PANEL UPP., CMP, BIOFIRECOVNOTDE, CBC ####[address] Neutrophils/100 WBC (Bld) 57.0 % Normal . [facility] Comment on above: Performed By: #### R DYAN PANEL UPP., CMP, BIOFIRECOVNOTDE, CBC ####[place] [address] [place] NRBC% 0.2 /100{WBC} Normal 0-0.5 [facility] Comment on above: Performed By: #### R DYAN PANEL UPP., CMP, BIOFIRECOVNOTDE, CBC ####[address] Platelet mean volume (Bld) [Entitic vol] 8.3 fL Normal 6.6-10.1 [facility] Comment on above: Performed By: #### R DYAN PANEL UPP., CMP, BIOFIRECOVNOTDE, CBC ####[address] Platelets (Bld) [#/Vol] 349 10*3/uL Normal 150-450 [facility] Comment on above: Performed By: #### R DYAN PANEL UPP., CMP, BIOFIRECOVNOTDE, CBC ####[address] RBC (Bld) [#/Vol] 4.42 10*6/uL Normal 3.90-5.60 [facility] Comment on above: Performed By: #### R DYAN PANEL UPP., CMP, BIOFIRECOVNOTDE, CBC ####[address] WBC (Bld) [#/Vol] 8.1 10*3/uL Normal 4.1-10.5 [facility] Comment on above: Performed By: #### R DYAN PANEL UPP., CMP, BIOFIRECOVNOTDE, CBC ####[address] Comprehensive Metabolic Pane chanel 10-09-2023 Albumin [Mass/Vol] 3.9 g/dL Normal 3.5-5.7 [facility] Comment on above: Performed By: #### R DYAN PANEL UPP., CMP, BIOFIRECOVNOTDE, CBC ####[address] Albumin/Globulin [Mass ratio] 2.0 {ratio} Normal [facility] Comment on above: Performed By: #### R DYAN PANEL UPP., CMP, BIOFIRECOVNOTDE, CBC ####[address] ALP [Catalytic activity/Vol] 59 U/L Normal 34-104 [facility] Comment on above: Result Comment: PERF ORMED BY: [facility] [address] [place] [address] PATHOLOGIST COOK VACUUM KETTLE CARMEN LYNCH M.D. Performed By: #### R DYAN PANEL UPP., CMP, BIOFIRECOVNOTDE, CBC ####[address] ALT [Catalytic activity/Vol] 8 U/L Normal 7-52 [facility] Comment on above: Performed By: #### R DYAN PANEL UPP., CMP, BIOFIRECOVNOTDE, CBC ####[address] Anion gap [Moles/Vol] 9.5 mmol/L Normal 6.0-15.0 [facility] Comment on above: Performed By: #### R DYAN PANEL UPP., CMP, BIOFIRECOVNOTDE, CBC ####[address] AST [Catalytic activity/Vol] 7 U/L Low 13-39 [facility] Comment on above: Performed By: #### R DYAN PANEL UPP., CMP, BIOFIRECOVNOTDE, CBC ####[address] Bilirubin [Mass/Vol] 0.5 mg/dL Normal 0.3-1.0 [facility] Comment on above: Performed By: #### R DYAN PANEL UPP., CMP, BIOFIRECOVNOTDE, CBC ####[address] Calcium [Mass/Vol] 9.5 mg/dL Normal 8.6-10.3 [facility] Comment on above: Performed By: #### R DYAN PANEL UPP., CMP, BIOFIRECOVNOTDE, CBC ####[address] Chloride [Moles/Vol] 103 mmol/L Normal 98-107 [facility] Comment on above: Performed By: #### R DYAN PANEL UPP., CMP, BIOFIRECOVNOTDE, CBC ####[address] CO2 [Moles/Vol] 30.0 mmol/L Normal 21.0-31.0 [facility] Comment on above: Performed By: #### R DYAN PANEL UPP., CMP, BIOFIRECOVNOTDE, CBC ####[address] Creatinine [Mass/Vol] 0.92 mg/dL Normal 0.70-1.30 [facility] Comment on above: Performed By: #### R DYAN PANEL UPP., CMP, BIOFIRECOVNOTDE, CBC ####[address] GFR/1.73 sq M.predicted MDRD (S/P/Bld) [Vol rate/Area] mL/min/{1.73_m2} Normal [facility] Comment on above: Performed By: #### R DYAN PANEL UPP., CMP, BIOFIRECOVNOTDE, CBC ####[address] Globulin (S) [Mass/Vol] 2.0 g/dL Normal [facility] Comment on above: Performed By: #### R DYAN PANEL UPP., CMP, BIOFIRECOVNOTDE, CBC ####[address] Glucose [Mass/Vol] 84 mg/dL Normal 70-100 [facility] Comment on above: Result Comment: [place] Glucose Reference Range is dependent on time and content of last meal. Glucose of more than 200 mg/dL in a nonstressed, ambulatory subject supports the diagnosis of Diabetes Mellitus. ADA recommended reference range Performed By: #### R DYAN PANEL UPP., CMP, BIOFIRECOVNOTDE, CBC ####[address] Potassium [Moles/Vol] 4.5 mmol/L Normal 3.5-5.1 [facility] Comment on above: Performed By: #### R DYAN PANEL UPP., CMP, BIOFIRECOVNOTDE, CBC ####[address] Protein [Mass/Vol] 5.9 g/dL Low 6.4-8.9 [facility] Comment on above: Performed By: #### R DYAN PANEL UPP., CMP, BIOFIRECOVNOTDE, CBC ####[address] Sodium [Moles/Vol] 138 mmol/L Normal 136-145 [facility] Comment on above: Performed By: #### R DYAN PANEL UPP., CMP, BIOFIRECOVNOTDE, CBC ####[address] Urea nitrogen [Mass/Vol] 14 mg/dL Normal 7-25 [facility] Comment on above: Performed By: #### R DYAN PANEL UPP., CMP, BIOFIRECOVNOTDE, CBC ####[address] Creatinine [Mass/volume] in Serum or PlasmaOrdered By: Griselda Krause on 10-09-2023 Creatinine [Mass/Vol] 0.92 mg/dL 0.70-1.30 [facility] Eosinophils Auto (Bld) [#/Vo l]Ordered By: Griselda Krause on 10-09-2023 Eosinophils (Bld) [#/Vol] 0.1 10*3/uL 0.0-0.45 [facility] Eosinophils/100 WBC Auto (Bl d)Ordered By: Griselda Krause on 10-09-2023 Eosinophils/100 WBC (Bld) 1.0 % . [facility] Erythrocyte distribution wid th Auto (RBC) [Ratio]Ordered By: Griselda Krause on 10-09-2023 Erythrocyte distribution width (RBC) [Ratio] 14.3 % 12.0-14.8 [facility] Globulin Calc (S) [Mass/Vol] Ordered By: Griselda Krause on 10-09-2023 Globulin (S) [Mass/Vol] 2.0 g/dL [facility] Glucose [Mass/volume] in Ser um or PlasmaOrdered By: Griselda Krause on 10-09-2023 Glucose [Mass/Vol] 84 mg/dL 70-[address] [facility] Comment on above: ADA recommended refe rence rangeRandom Glucose Reference Range is dependent on time and content of last meal. Glucose of more than 200 mg/dL in a nonstressed, ambulatory subject supports the diagnosis of Diabetes Mellitus. Hematocrit Auto (Bld) [Volum e fraction]Ordered By: Griselda Krause on 10-09-2023 Hematocrit (Bld) [Volume fraction] 41.9 % 38.8-50.0 [facility] Hemoglobin [Mass/volume] in BloodOrdered By: Griselda Krause on 10-09-2023 Hemoglobin (Bld) [Mass/Vol] 14.4 g/dL 13.0-17.0 [facility] Leukocytes [#/volume] correc mone for nucleated erythrocytes in Blood by Automated counOrdered By: Griselda Krause on 10-09-2023 WBC corrected for nucl RBC Auto (Bld) [#/Vol] 8.1 10*3/uL 4.1-10.5 [facility] Lymphocytes Auto (Bld) [#/Vo l]Ordered By: Griselda Krause on 10-09-2023 Lymphocytes (Bld) [#/Vol] 2.7 10*3/uL 1.00-4.8 [facility] Lymphocytes/100 WBC Auto (Bl d)Ordered By: Griselda Krause on 10-09-2023 Lymphocytes/100 WBC (Bld) 33.6 % . [facility] MCH Auto (RBC) [Entitic mass ]Ordered By: Griselda Krause on 10-09-2023 MCH (RBC) [Entitic mass] 32.7 pg 27.5-35.2 [facility] MCHC Auto (RBC) [Mass/Vol]Or dered By: Griselda Krause on 10-09-2023 MCHC (RBC) [Mass/Vol] 34.4 g/dL 32.5-35.6 [facility] MCV Auto (RBC) [Entitic vol] Ordered By: Griselda Krause on 10-09-2023 MCV (RBC) [Entitic vol] 94.8 fL 83.5-101 [facility] Monocytes Auto (Bld) [#/Vol] Ordered By: Griselda Krause on 10-09-2023 Monocytes (Bld) [#/Vol] 0.6 10*3/uL 0.0-0.8 [facility] Monocytes/100 WBC Auto (Bld) Ordered By: Griselda Krause on 10-09-2023 Monocytes/100 WBC (Bld) 7.5 % . [facility] Neutrophils Auto (Bld) [#/Vo l]Ordered By: Griselda Krause on 10-09-2023 Neutrophils (Bld) [#/Vol] 4.6 10*3/uL 1.8-7.7 [facility] Neutrophils/100 WBC Auto (Bl d)Ordered By: Griselda Krause on 10-09-2023 Neutrophils/100 WBC (Bld) 57.0 % . [facility] No Panel InformationOrdered By: Griselda Krause on 10-09-2023 Estimated GFR (CKD-EPI) > 60.0 mL/Min [facility] Creatinine Clearance (Chem N/A [facility] Nucleated erythrocytes [Pres ence] in Blood by Automated countOrdered By: Griselda Krause on 10-09-2023 Nucleated RBC Auto Ql (Bld) 0.2 /100{WBC} 0-0.5 [facility] Platelet mean volume Auto (B ld) [Entitic vol]Ordered By: Griselda Krause on 10-09-2023 Platelet mean volume (Bld) [Entitic vol] 8.3 fL 6.6-10.1 [facility] Platelets Auto (Bld) [#/Vol] Ordered By: Griselda Krause on 10-09-2023 Platelets (Bld) [#/Vol] 349 10*3/uL 150-450 [facility] Potassium [Moles/volume] in Serum or PlasmaOrdered By: Griselda Krause on 10-09-2023 Potassium [Moles/Vol] 4.5 mmol/L 3.5-5.1 [facility] Protein [Mass/volume] in Ser um or PlasmaOrdered By: Griselda Krause on 10-09-2023 Protein [Mass/Vol] 5.9 g/dL 6.4-8.[address] [facility] RBC Auto (Bld) [#/Vol]Ordere d By: Griselda Krause on 10-09-2023 RBC (Bld) [#/Vol] 4.42 10*6/uL 3.90-5.60 [facility] Respiratory (Upper) Panel, P CRon 10-09-2023 Respiratory [...] FLUA TEST INCLUDES - Influenza A H1 2008 FLUA TEST INCLUDES - Influenza A H3 Blank Space ---- PERFORMED BY: [facility] [place] [address] PATHOLOGIST COOK VACUUM KETTLE CARMEN LYNCH M.D. Normal [facility] Comment on above: Performed By: #### R DYAN PANEL UPP., CMP, BIOFIRECOVNOTDE, CBC ####[facility] [id number] Respiratory pathogens DNA an d RNA panel - Nasopharynx by JER with non-probe detectionOrdered By: Griselda Krause on 10-09-2023 Respiratory pathogens DNA and RNA panel JER+non-probe (Nph) [facility] Serum or plasma albumin/glob ulin mass ratioOrdered By: Griselda Krause on 10-09-2023 Albumin/Globulin [Mass ratio] 2.0 {ratio} [facility] Serum or plasma anion gap de terminationOrdered By: Griselda Krause on 10-09-2023 Anion gap [Moles/Vol] 9.5 mmol/L 6.0-15.0 [facility] Sodium [Moles/volume] in Ser um or PlasmaOrdered By: Griselda Krause on 10-09-2023 Sodium [Moles/Vol] 138 mmol/L 136-[address] [facility] Urea nitrogen [Mass/volume] in Serum or PlasmaOrdered By: Griselda Krause on 10-09-2023 Urea nitrogen [Mass/Vol] 14 mg/dL 7-25 [facility] WBC Auto (Bld) [#/Vol]Ordere d By: Griselda Krause on 10-09-2023 WBC (Bld) [#/Vol] 8.1 10*3/uL 4.1-10.[address] [facility] XR chest 2V*on 10-09-2023 XR chest 2V* [facility] [address] [place] [address] XRay Report Signed Patient: Jovani Melendez MR#: [id number] : 1960 Acct:[id number] Age/Sex: 62 / M ADM Date: 10/09/23 Loc: XD Room: Type: [facility] Attending Dr: Griselda Krause DO Copies [...] Filipe Perez M.D.10/09/2023 3:33 PM Dictation Location: [id number]-14 Transcribed By: [facility] [facility] 10/09/23 153 Dictated By: Filipe Perez DO 10/09/23 1532 Signed By: 10/09/23 1533 Normal [facility] MR TRANSFER OF OUTSIDE FILMS on 09-19-2023 MR TRANSFER OF OUTSIDE FILMS Outside images for comparison or treatment purposes, not interpreted by Radiologists. Normal [facility] Study Interpretation of outs jeffrey studyon 09-19-2023 [...] US ankle/arm indiceson 09-04 US ankle/arm indices [facility] [place] [address] [place] [address] Ultrasound Report Signed Patient: Jovani Melendez MR#: [id number] : 1960 Acct:[id number] Age/Sex: 62 / M ADM Date: 09/05/23 Loc: [facility] Room: Type[facility] Attending Dr: Ruddy Harvey MD Ordering [...] Ruddy Harvey MD09/05/2023 2:40 PM Dictation Location: [place] [address] Tech: [employer]m Transcribed By: MARISA 09/05/23 1440 Dictated By: Ruddy Harvey MD 09/05/23 1439 Signed By: 09/05/23 1440 Normal [facility] MRI BRAIN W WO CONTRASTon [...] Vitor Hickman MD 08/01/[address] [facility] ([place], [place]) MRI CERVICAL SPINE WO CONTRA STon 07-18-2023 [...] Vitor Hickman MD 08/01/[address] [facility] ([place], [place]) COVID + FLU Quick Testingon 07-02-2023 SARS-CoV-2 (COVID-19) RNA JER+probe Ql (Unsp spec) Negative [email or web address] Other COVID + FLU Quick Testing Negative [email or web address] Other Quick Strepon 07-02-2023 S. pyogenes Org specific cx Ql (Throat) Negative [email or web address] Other Quick Strep [email or web address] Other RSVon 07-02-2023 RSV Ag IA Ql (Unsp spec) Negative [email or web address] Other US UNI ankle/arm indiceson 1 07-31-2022 US UNI ankle/arm indices [facility] [place] [address] [place] [address] Ultrasound Report Signed Patient: Jovani Melendez MR#: [id number] : 1960 Acct:[id number] Age/Sex: 62 / M ADM Date: 05/30/23 Loc: [facility] Room: [facility] Attending Dr: Ruddy Harvey MD Ordering [...] Ruddy Harvey MD05/30/2023 1:37 PM Dictation Location: [place] [address] Tech: [employer] Transcribed By: MARISA 05/30/23 133 Dictated By: Ruddy Harvey MD 05/30/231336 Signed By: 05/30/23 1337 Normal [facility] Blood Urea Nitrogenon 2022 Urea nitrogen [Mass/Vol] 15 mg/dL Normal 7-25 [facility] Comment on above: Performed By: #### B UN, CREAT ####[facility] [place] [address] [place] Creatinineon 05-07-2023 Creatinine [Mass/Vol] 0.91 mg/dL Normal 0.70-1.30 [facility] Comment on above: Performed By: #### B UN, CREAT ####[place] [address] [place] [address] [place] Creatinine Clr Calc Pharmacy 83.52 Normal [facility] Comment on above: Result Comment: PERF ORMED BY: [place] [address] PATHOLOGIST COOK VACUUM KETTLE CARMEN LYNCH M.D. Performed By: #### B UN, CREAT ####[place] [address] [place] [address] [place] GFR/1.73 sq M.predicted MDRD (S/P/Bld) [Vol rate/Area] mL/min/{1.73_m2} Normal [facility] Comment on above: Performed By: #### B UN, CREAT ####[address] [address] [place] Creatinine [Mass/volume] in Serum or PlasmaOrdered By: Ruddy Harvey on 05-07-2023 Creatinine [Mass/Vol] 0.91 mg/dL 0.70-1.30 [facility] No Panel InformationOrdered By: Ruddy Harvey on 05-07-2023 Estimated GFR (CKD-EPI) > 60.0 mL/Min [facility] Creatinine Clearance (Chem 83.52 [facility] Urea nitrogen [Mass/volume] in Serum or PlasmaOrdered By: Ruddy Harvey on 05-07-2023 Urea nitrogen [Mass/Vol] 15 mg/dL 01-[address] [facility] [address] angio neckon 05-04-2023 CT angio neck [facility] [place] [address] [place] [address] CT Scan Report Signed Patient: Jovani Melendez MR#: [id number] : 1960 Acct:[id number] Age/Sex: 62 / M ADM Date: 05/04/23 Loc: CT Room: Type[facility] Attending Dr: Nikole Thomason APRN, DRILLING AND PRODUCTION SUPERINTENDENT-C Copies to: Nikole Thomason APRN, CNP Ordering Provider: Nikole Thomason APRN, CNP Date of Service: 05/04/23 CT/CT angio neck: H53.9, I65.23, I65.1, I66.09, I65.29 ([id number]) CT/CT angio head: H53.9, I65.23, I65.1, I66.09, [...] Alber Goodson M.D.05/04/2023 4:34 PM Dictation Location: [place] [address] Transcribed By: [facility] 05/04/23 1634 Dictated By: Alber Goodson II, MD 05/04/23 1549 Signed By: 05/04/23 1634 Normal [facility] Creatinine (Bld) [Mass/Vol]O rdered By: Nikole Thomason on 05-04-2023 Creatinine [Mass/Vol] 0.9 mg/dL 0.6-1.3 [facility] Comment on above: ER/ESD physician is notified/shown all ISTAT results.Critical values may be confirmed by laboratory testing ifdeemed necessary by ER attending doctor. ISTAT XRay CREon 05-04-2023 Creatinine [Mass/Vol] 0.9 mg/dL Normal 0.6-1.3 [facility] Comment on above: Result Comment: ER/E SD physician is notified/shown all ISTAT results. Critical values may be confirmed by laboratory testing if deemed necessary by ER attending doctor. Performed By: #### I SCRE #### [facility] [address] [place] [address] ISTAT GFR > 60.0 Normal [facility] Comment on above: Result Comment: PERF ORMED BY: [place] [address] PATHOLOGIST C[employer] VAC[employer] KETTLE CARMEN LYNCH M.D. Performed By: #### I SCRE #### [facility] [address] [place] [address] No Panel InformationOrdered By: Nikole Thomason on 05-04-2023 Bedside Estimated GFR (eGFR) > 60.0 [facility] US arterial pvr rest Tom US arterial pvr rest LE [facility] [place] [address] Ultrasound Report Signed Patient: Jovani Melendez MR#: [id number] : 1960 Acct:[id number] Age/Sex: 62 / M ADM Date: 04/25/23 Loc: Room: Type: [facility] Attending Dr: Lilliam Cason MD Ordering [...] Ruddy Harvey MD04/26/2023 9:47 AM Dictation Location: [place] [address] Tech: Elisabet Mcclellan Transcribed By: MARISA 04/26/23946 Dictated By: Ruddy Harvey MD 04/26/23944 Signed By: 04/26/23946 Normal [facility] Alanine aminotransferase [En zymatic activity/volume] in Serum or PlasmaOrdered By: Griselda Krause on 03-30-2023 ALT [Catalytic activity/Vol] 10 U/L Normal [facility] Comment on above: Order Comment: Reaso n for Exam Night sweats;Hyperlipidemia Performed By: #### C MP, LIPID, CBC, TSH3 #### [address] Albumin [Mass/volume] in Ser um or Plasma by Bromocresol green (BCG) dye binding methoOrdered By: Griselda Krause on 03-30-2023 Albumin BCG dye [Mass/Vol] 4.2 g/dL 3.5-5.7 [facility] Alkaline phosphatase [Enzyma tic activity/volume] in Serum or PlasmaOrdered By: Griselda Krause on 03-30-2023 ALP [Catalytic activity/Vol] 61 U/L Normal 34-104 [facility] Comment on above: Order Comment: Reaso n for Exam Night sweats;Hyperlipidemia Performed By: #### C MP, LIPID, CBC, TSH3 #### [facility] [address] [place] [address] Aspartate aminotransferase [ Enzymatic activity/volume] in Serum or PlasmaOrdered By: Griselda Krause on 03-30-2023 AST [Catalytic activity/Vol] 8 U/L Low 13-39 [facility] Comment on above: Order Comment: Reaso n for Exam Night sweats;Hyperlipidemia Performed By: #### C MP, LIPID, CBC, TSH3 #### [facility] [address] [place] [address] Automated basophil %Ordered By: Griselda Krause on 03-30-2023 Basophils/100 WBC (Bld) 0.8 % Normal . [facility] Comment on above: Order Comment: Reaso n for Exam Night sweats;Hyperlipidemia Performed By: #### C MP, LIPID, CBC, TSH3 #### [facility] [address] [place] [address] Automated basophil countOrde red By: Griselda Krause on 03-30-2023 Basophils (Bld) [#/Vol] 0.1 10*3/uL Normal 0.0-0.2 [facility] Comment on above: Order Comment: Reaso n for Exam Night sweats;Hyperlipidemia Result Comment: PERF ORMED BY: [place] [address] PATHOLOGIST C[employer] VAC[employer] KETT[employer] CARMEN LYNCH M.D. Performed By: #### C MP, LIPID, CBC, TSH3 #### [address] Automated blood monocyte cou ntOrdered By: Griselda Krause on 03-30-2023 Monocytes (Bld) [#/Vol] 0.8 10*3/uL Normal 0.0-0.8 [facility] Comment on above: Order Comment: Reaso n for Exam Night sweats;Hyperlipidemia Performed By: #### C MP, LIPID, CBC, TSH3 #### [facility] [address] Automated eosinophil %Ordere d By: Griselda Krause on 03-30-2023 Eosinophils/100 WBC (Bld) 0.6 % Normal . [facility] Comment on above: Order Comment: Reaso n for Exam Night sweats;Hyperlipidemia Performed By: #### C MP, LIPID, CBC, TSH3 #### [facility] [address] Automated eosinophil countOr dered By: Griselda Krause on 03-30-2023 Eosinophils (Bld) [#/Vol] 0.1 10*3/uL Normal 0.0-0.45 [facility] Comment on above: Order Comment: Reaso n for Exam Night sweats;Hyperlipidemia Performed By: #### C MP, LIPID, CBC, TSH3 #### [facility] [address] [place] [address] Automated monocyte %Ordered By: Griselda Krause on 03-30-2023 Monocytes/100 WBC (Bld) 8.0 % Normal . [facility] Comment on above: Order Comment: Reaso n for Exam Night sweats;Hyperlipidemia Performed By: #### C MP, LIPID, CBC, TSH3 #### [facility] [address] [place] [id number] [facility] Automated neutrophil %Ordere d By: Griselda Krause on 03-30-2023 Neutrophils/100 WBC (Bld) 73.8 % Normal . [facility] Comment on above: Order Comment: Reaso n for Exam Night sweats;Hyperlipidemia Performed By: #### C MP, LIPID, CBC, TSH3 #### [facility] [address] [place] [address] Bilirubin.total [Mass/volume ] in Serum or PlasmaOrdered By: Griselda Krause on 03-30-2023 Bilirubin [Mass/Vol] 0.9 mg/dL Normal 0.3-1.0 [facility] Comment on above: Order Comment: Reaso n for Exam Night sweats;Hyperlipidemia Performed By: #### C MP, LIPID, CBC, TSH3 #### [facility] [address] [place] [address] [place] Calcium [Mass/volume] in Ser um or PlasmaOrdered By: Griselda Krause on 03-30-2023 Calcium [Mass/Vol] 9.1 mg/dL Normal 8.6-10.[address] [facility] Comment on above: Order Comment: Reaso n for Exam Night sweats;Hyperlipidemia Performed By: #### C MP, LIPID, CBC, TSH3 #### [facility] [address] [place] [address] [place] Carbon dioxide, total [Moles /volume] in Serum or PlasmaOrdered By: Griselda Krause on 03-30-2023 CO2 [Moles/Vol] 27.0 mmol/L Normal 21.0-31.0 [facility] Comment on above: Order Comment: Reaso n for Exam Night sweats;Hyperlipidemia Performed By: #### C MP, LIPID, CBC, TSH3 #### [facility] [address] [place] [id number] [place] Chloride [Moles/volume] in S rica or PlasmaOrdered By: Griselda Krause on 03-30-2023 Chloride [Moles/Vol] 103 mmol/L Normal 98-107 [facility] Comment on above: Order Comment: Reaso n for Exam Night sweats;Hyperlipidemia Performed By: #### C MP, LIPID, CBC, TSH3 #### [facility] [address] [place] [id number] [place] Cholesterol [Mass/volume] in Serum or PlasmaOrdered By: Griselda Krause on 03-30-2023 Cholesterol [Mass/Vol] 224 mg/dL High 140-200 [facility] Comment on above: Chol less than 200 m g/dl low riskChol 201-239 mg/dl borderline riskChol 240 mg/dl and greater high risk Order Comment: Reaso n for Exam Night sweats;Hyperlipidemia Result Comment: Chol less than 200 mg/dl low risk Chol 201-239 mg/dl borderline risk Chol 240 mg/dl and greater high risk Performed By: #### C MP, LIPID, CBC, TSH3 ####[facility] [address] Cholesterol in LDL Calc [Mas s/Vol]Ordered By: Griselda Krause on 03-30-2023 Cholesterol in LDL [Mass/Vol] 148 mg/dL 0-100 [facility] Comment on above: LDL ATP III CLASSIFI CATIONLDL less than 100 mg/dL OptimalLDL 100-129 mg/dL Near or above optimalLDL 130-159 mg/dL Borderline highLDL 160-189 mg/dL HighLDL greater than 189 mg/dL Very high Cholesterol in VLDL Calc [Ma ss/Vol]Ordered By: Griselda Kruase on 03-30-2023 Cholesterol in VLDL [Mass/Vol] 31 mg/dL [facility] Complete Blood Count Auto Di ffon 03-30-2023 Mean Corpuscular HGB Conc 34.9 g/dL Normal 32.5-35.6 [facility] Comment on above: Order Comment: Reaso n for Exam Night sweats;Hyperlipidemia Performed By: #### C MP, LIPID, CBC, TSH3 #### [facility] [address] NRBC% 0.1 /100{WBC} Normal 0-0.5 [facility] Comment on above: Order Comment: Reaso n for Exam Night sweats;Hyperlipidemia Performed By: #### C MP, LIPID, CBC, TSH3 #### [facility] [address] Comprehensive Metabolic Pane chanel 03-30-2023 Albumin [Mass/Vol] 4.2 g/dL Normal 3.5-5.7 [facility] Comment on above: Order Comment: Reaso n for Exam Night sweats;Hyperlipidemia Performed By: #### C MP, LIPID, CBC, TSH3 #### [facility] [address] GFR/1.73 sq M.predicted MDRD (S/P/Bld) [Vol rate/Area] mL/min/{1.73_m2} Normal [facility] Comment on above: Order Comment: Reaso n for Exam Night sweats;Hyperlipidemia Performed By: #### C MP, LIPID, CBC, TSH3 #### [facility] [address] Creatinine [Mass/volume] in Serum or PlasmaOrdered By: Griselda Krause on 03-30-2023 Creatinine [Mass/Vol] 0.82 mg/dL Normal 0.70-1.30 [facility] Comment on above: Order Comment: Reaso n for Exam Night sweats;Hyperlipidemia Performed By: #### C MP, LIPID, CBC, TSH3 #### [facility] [address] Erythrocyte distribution wid th [Ratio] by Automated countOrdered By: Griselda Krause on 03-30-2023 Erythrocyte distribution width (RBC) [Ratio] 14.1 % Normal 12.0-14.8 [facility] Comment on above: Order Comment: Reaso n for Exam Night sweats;Hyperlipidemia Performed By: #### C MP, LIPID, CBC, TSH3 #### [facility] [address] Erythrocytes [#/volume] in B lood by Automated countOrdered By: Griselda Krause on 03-30-2023 RBC (Bld) [#/Vol] 4.26 10*6/uL Normal 3.90-5.60 [facility] Comment on above: Order Comment: Reaso n for Exam Night sweats;Hyperlipidemia Performed By: #### C MP, LIPID, CBC, TSH3 #### [facility] [address] [place] [address] Glucose [Mass/volume] in Ser um or PlasmaOrdered By: Griselda Krause on 03-30-2023 Glucose [Mass/Vol] 83 mg/dL Normal 70-[address] [facility] Comment on above: ADA recommended refe rence rangeRandom Glucose Reference Range is dependent on time and content of last meal. Glucose of more than 200 mg/dL in a nonstressed, ambulatory subject supports the diagnosis of Diabetes Mellitus. Order Comment: Reaso n for Exam Night sweats;Hyperlipidemia Result Comment: [place] om Glucose Reference Range is dependent on time and content of last meal. Glucose of more than 200 mg/dL in a nonstressed, ambulatory subject supports the diagnosis of Diabetes Mellitus. ADA recommended reference range Performed By: #### C MP, LIPID, CBC, TSH3 #### [facility] [address] Hematocrit [Volume Fraction] of Blood by Automated countOrdered By: Griselda Krause on 03-30-2023 Hematocrit (Bld) [Volume fraction] 41.4 % Normal 38.8-50.0 [facility] Comment on above: Order Comment: Reaso n for Exam Night sweats;Hyperlipidemia Performed By: #### C MP, LIPID, CBC, TSH3 #### [facility] [address] Hemoglobin [Mass/volume] in BloodOrdered By: Griselda Krause on 03-30-2023 Hemoglobin (Bld) [Mass/Vol] 14.4 g/dL Normal 13.0-17.0 [facility] Comment on above: Order Comment: Reaso n for Exam Night sweats;Hyperlipidemia Performed By: #### C MP, LIPID, CBC, TSH3 #### [facility] [address] [place] [address] Leukocytes [#/volume] correc mone for nucleated erythrocytes in Blood by Automated counOrdered By: Griselda Krause on 03-30-2023 WBC corrected for nucl RBC Auto (Bld) [#/Vol] 10.0 10*3/uL 4.1-10.5 [facility] Leukocytes [#/volume] in Blo od by Automated countOrdered By: Griselda Krause on 03-30-2023 WBC (Bld) [#/Vol] 10.0 10*3/uL Normal 4.1-10.5 [facility] Comment on above: Order Comment: Reaso n for Exam Night sweats;Hyperlipidemia Performed By: #### C MP, LIPID, CBC, TSH3 #### [facility] [address] [place] [address] Lipid Panelon 03-30-2023 LDL Cholesterol,Calculated 148 mg/dL High 0-100 [facility] Comment on above: Order Comment: Reaso n for Exam Night sweats;Hyperlipidemia Result Comment: LDL ATP III CLASSIFICATION LDL less than 100 mg/dL Optimal LDL 100-129 mg/dL Near or above optimal LDL 130-159 mg/dL Borderline high LDL 160-189 mg/dL High LDL greater than 189 mg/dL Very high Performed By: #### C MP, LIPID, CBC, TSH3 ####[place] [address] Triglyceride w/Reflex 159 mg/dL High 0-149 [facility] Comment on above: Order Comment: Reaso n for Exam Night sweats;Hyperlipidemia Result Comment: TRIG ATP III CLASSIFICATION TRIG less than 150 mg/dL Normal TRIG 150-199 mg/dL Borderline high TRIG 200-500 mg/dL High TRIG greater than 500 mg/dL Very high Standard traceable to the Center for Disease Conrtrol and Prevention (CDC) test method. Performed By: #### C MP, LIPID, CBC, TSH3 ####[address] VLDL CHOLESTEROL 31 mg/dL Normal [facility] Comment on above: Order Comment: Reaso n for Exam Night sweats;Hyperlipidemia Performed By: #### C MP, LIPID, CBC, TSH3 ####[address] Lymphocytes [#/volume] in Bl ood by Automated countOrdered By: Griselda Krause on 03-30-2023 Lymphocytes (Bld) [#/Vol] 1.7 10*3/uL Normal 1.00-4.8 [facility] Comment on above: Order Comment: Reaso n for Exam Night sweats;Hyperlipidemia Performed By: #### C MP, LIPID, CBC, TSH3 #### [address] Lymphocytes/100 leukocytes i n Blood by Automated countOrdered By: Griselda Krause on 03-30-2023 Lymphocytes/100 WBC (Bld) 16.8 % Normal . [facility] Comment on above: Order Comment: Reaso n for Exam Night sweats;Hyperlipidemia Performed By: #### C MP, LIPID, CBC, TSH3 #### [facility] [address] MCH [Entitic mass] by Automa mone countOrdered By: Griselda Krause on 03-30-2023 MCH (RBC) [Entitic mass] 33.9 pg Normal 27.5-35.2 [facility] Comment on above: Order Comment: Reaso n for Exam Night sweats;Hyperlipidemia Performed By: #### C MP, LIPID, CBC, TSH3 #### [facility] [address] [place] [address] MCHC Auto (RBC) [Mass/Vol]Or dered By: Griselda Krause on 03-30-2023 MCHC (RBC) [Mass/Vol] 34.9 g/dL 32.5-35.6 [facility] MCV [Entitic volume] by Auto mated countOrdered By: Griselda Krause on 03-30-2023 MCV (RBC) [Entitic vol] 97.1 fL Normal 83.5-101 [facility] Comment on above: Order Comment: Reaso n for Exam Night sweats;Hyperlipidemia Performed By: #### C MP, LIPID, CBC, TSH3 #### [facility] [address] [place] [address] Neutrophils [#/volume] in Bl ood by Automated countOrdered By: Griselda Krause on 03-30-2023 Neutrophils (Bld) [#/Vol] 7.3 10*3/uL Normal 1.8-7.7 [facility] Comment on above: Order Comment: Reaso n for Exam Night sweats;Hyperlipidemia Performed By: #### C MP, LIPID, CBC, TSH3 #### [facility] [address] [place] [address] No Panel InformationOrdered By: Griselda Krause on 03-30-2023 Estimated GFR (CKD-EPI) > 60.0 mL/Min [facility] Creatinine Clearance (Chem N/A [facility] Nucleated erythrocytes [Pres ence] in Blood by Automated countOrdered By: Griselda Krause on 03-30-2023 Nucleated RBC Auto Ql (Bld) 0.1 /100{WBC} 0-0.5 [facility] Platelet mean volume [Entiti c volume] in Blood by Automated countOrdered By: Griselda Krasue on 03-30-2023 Platelet mean volume (Bld) [Entitic vol] 9.2 fL Normal 6.6-10.1 [facility] Comment on above: Order Comment: Reaso n for Exam Night sweats;Hyperlipidemia Performed By: #### C MP, LIPID, CBC, TSH3 #### [facility] [address] [place] [address] Platelets [#/volume] in Bloo d by Automated countOrdered By: Griselda Krause on 03-30-2023 Platelets (Bld) [#/Vol] 221 10*3/uL Normal 150-450 [facility] Comment on above: Order Comment: Reaso n for Exam Night sweats;Hyperlipidemia Performed By: #### C MP, LIPID, CBC, TSH3 #### [facility] [address] [place] [address] Potassium [Moles/volume] in Serum or PlasmaOrdered By: Griselda Krause on 03-30-2023 Potassium [Moles/Vol] 4.1 mmol/L Normal 3.5-5.1 [facility] Comment on above: Order Comment: Reaso n for Exam Night sweats;Hyperlipidemia Performed By: #### C MP, LIPID, CBC, TSH3 #### [facility] [address] [place] [address] Protein [Mass/volume] in Ser um or PlasmaOrdered By: Griselda Krause on 03-30-2023 Protein [Mass/Vol] 6.1 g/dL Low 6.4-8.[address] [facility] Comment on above: Order Comment: Reaso n for Exam Night sweats;Hyperlipidemia Performed By: #### C MP, LIPID, CBC, TSH3 #### [facility] [address] [place] [address] Serum globulin measurement b y calculation (mass/volume)Ordered By: Griselda Krause on 03-30-2023 Globulin (S) [Mass/Vol] 1.9 g/dL Normal [facility] Comment on above: Order Comment: Reaso n for Exam Night sweats;Hyperlipidemia Performed By: #### C MP, LIPID, CBC, TSH3 #### [facility] [address] [place] [address] Serum or plasma albumin/glob ulin mass ratioOrdered By: Griselda Krause on 03-30-2023 Albumin/Globulin [Mass ratio] 2.2 {ratio} Normal [facility] Comment on above: Order Comment: Reaso n for Exam Night sweats;Hyperlipidemia Performed By: #### C MP, LIPID, CBC, TSH3 #### [facility] [address] Serum or plasma anion gap de terminationOrdered By: Griselda Krause on 03-30-2023 Anion gap [Moles/Vol] 12.1 mmol/L Normal 6.0-15.0 [facility] Comment on above: Order Comment: Reaso n for Exam Night sweats;Hyperlipidemia Performed By: #### C MP, LIPID, CBC, TSH3 #### [facility] [address] Serum or plasma high density lipoprotein (HDL) cholesterol measurementOrdered By: Griselda Krause on 03-30-2023 Cholesterol in HDL [Mass/Vol] 44 mg/dL Normal 23-92 [facility] Comment on above: HDL CHOL ATP-III CLA SSIFICATION Cardiovascular RiskHDL > or equal to 60 mg/dL LOWHDL < 40 mg/dL HIGH Order Comment: Reaso n for Exam Night sweats;Hyperlipidemia Result Comment: HDL CHOL ATP-III CLASSIFICATION Cardiovascular Risk HDL > or equal to 60 mg/dL LOW HDL < 40 mg/dL HIGH Performed By: #### C MP, LIPID, CBC, TSH3 ####[facility] Pay[address] Serum or plasma total choles terol/high density lipoprotein (HDL) cholesterol mass ratOrdered By: Griselda Krause on 03-30-2023 Cholesterol.total/Chol esterol in HDL [Mass ratio] 5.1 {ratio} Normal <5.0 [facility] Comment on above: Order Comment: Reaso n for Exam Night sweats;Hyperlipidemia Performed By: #### C MP, LIPID, CBC, TSH3 ####[facility] [id number] Sodium [Moles/volume] in Ser um or PlasmaOrdered By: Griselda Krause on 03-30-2023 Sodium [Moles/Vol] 138 mmol/L Normal 136-[address] [facility] Comment on above: Order Comment: Reaso n for Exam Night sweats;Hyperlipidemia Performed By: #### C MP, LIPID, CBC, TSH3 #### [facility] [address] Thyrotropin [Units/volume] i n Serum or PlasmaOrdered By: Griselda Krause on 03-30-2023 TSH Qn 0.93 m[IU]/L Normal 0.45-5.33 [facility] Comment on above: Order Comment: Reaso n for Exam Night sweats;Hyperlipidemia Result Comment: PERF ORMED BY: [facility] [address] [place] [address] PATHOLOGIST COOK [employer]ACU[employer] KETTLE CARMEN LYNCH M.D. Performed By: #### C MP, LIPID, CBC, TSH3 ####[facility] Triglyceride [Mass/volume] i n Serum or PlasmaOrdered By: Griselda Krause on 03-30-2023 Triglyceride [Mass/Vol] 159 mg/dL 0-149 [facility] Comment on above: TRIG ATP III CLASSIF ICATIONTRIG less than 150 mg/dL NormalTRIG 150-199 mg/dL Borderline highTRIG 200-500 mg/dL High TRIG greater than 500 mg/dL Very highStandard traceable to the Center for Disease Conrtrol and Prevention (CDC) test method. Urea nitrogen [Mass/volume] in Serum or PlasmaOrdered By: Griselda Krause on 03-30-2023 Urea nitrogen [Mass/Vol] 10 mg/dL Normal 7-25 [facility] Comment on above: Order Comment: Reaso n for Exam Night sweats;Hyperlipidemia Performed By: #### C MP, LIPID, CBC, TSH3 #### [facility] [address] COVID-19 Antigenon 3 COVID-19 Antigen Healthcare [...] developed and its performance characteristic determined by [facility] and validated at [facility]. This test has not been FDA [...] for SARS Antigen by JAMILA PERFORMED BY: [facility] [address] [place] [address] PATHOLOGIST COOK [employer]AC[employer] KETT[employer] CARMEN LYNCH M.D. Normal [facility] Comment on above: Performed By: #### C OVID-19 YENNY, SOFIANEG ####[facility] [id number] [place] [address] [facility] COVID-19 SOFIAOrdered By: Brandyn Gaytan on 02-26-2023 SARS-CoV+SARS-CoV-2 (COVID-19) Ag IA.rapid Ql (Resp) Negative Negative [facility] Comment on above: This is a duplicate Yenny SARS Antigen (JAMILA) result to be used for statistical tracking purpose only. No Panel InformationOrdered By: Daniel Gaytan on 02-26-2023 SARS Antigen (LFIA) [facility] SARS Antigen (LFIA) [facility] Yenny Ag Negativeon 02-27-20 23 Yenny Ag Negative Negative Normal Negative [facility] Comment on above: Result Comment: This is a duplicate Yenny SARS Antigen (JAMILA) result to be used for statistical tracking purpose only. PERFORMED BY: [facility] [address] [place] [id number] PATHOLOGIST COOK VACUUM KETTLE CARMEN LYNCH M.D. Performed By: #### C OVID-19 YENNY, SOFIANEG ####[facility] [facility] [place] [address] [facility] No Panel Informationon 12-28 XR Pain Management C ase (Reference Range: not available) *FINAL Date of Service: 12/28/2022 08:49 Adm #: [id number] Reading Dr:RICARDO CAPPS Signoff Dr: RICARDO CAPPS PROCEDURE: PAIN MANAGEMENT CASE - BXR 0999 REASON FOR EXAM: SPONDYLOSIS W/O MYELOPATHY OR RADICULOPATHY, CERVICAL REGION RESULT: Patient Name: JOVANI MELENDEZ STUDY: PAIN MANAGEMENT CASE INDICATION: SPONDYLOSIS W/O MYELOPATHY OR RADICULOPATHY, CERVICAL REGION COMPARISON: None. ACCESSION NUMBER(S): [id number] ORDERING CLINICIAN: LIMA JOSEPH TECHNIQUE: See below: FINDINGS: Fluoroscopy was provided during therapeutic puncture in the region of the cervical spine for pain management. Total fluoroscopy time: 14.56mgy, images: 4. IMPRESSION: Fluoroscopy for pain management. Dictation workstation: [id number] Original Interpreting Physician: RICARDO CAPPS M.D. Original Transcribed by/Date: MMODAL Dec 28 2022 6:14A Original Electronically Signed by/Date: RICARDO CAPPS M.D. Dec 28 2022 9:04A Addendum Interpreting Physician: Addendum Transcribed by/Date: NO ADDENDUM Addendum Electronically Signed by/Date: [facility] [place] Quick Strepon 12-05-2022 S. pyogenes Org specific cx Ql (Throat) Negative [email or web address] Other Quick Strep [email or web address] Other XR pre/post mri xrayon 11-15 XR pre/post mri xray [facility] [place] [address] [place] [address] MRI Report Signed Patient: Jovani Melendez MR#: [id number] : 1960 Acct:[id number] Age/Sex: 61 / M ADM Date: 11/15/22 Loc: [facility] Att[facility]: Lima Joseph MD Copies to: Lima Joseph MD Ordering Provider: Lima Joseph MD Date of Service: 11/15/22 MR/MR lumbar spine wo con: M54.17 ([id number]) XR/XR pre/post mri xray: LUMBAR PRES MRI [...] Filipe Perez M.D.11/15/2022 1:41 PM Dictation Location: [place] [address] Transcribed By: [facility] 11/15/22 1341 Dictated By: Filipe Perez DO 11/15/22 1332 Signed By: 11/15/22 1341 Normal [facility] CT Chest W contrast Tristin [...] any questions regarding this interpretation, please call [phone]. If you are unable to reach us at the number above, please feel free to contact [facility] at [phone]. DIVISION OF RADIOLOGY * * *Final Report* * * DATE OF EXAM: Oct 27 2022 11:44AM [facility] 0539 - CT CHEST W [...] No abnormality in the imaged upper abdomen. [employer] (topogram) images: No additional findings. DIVISION OF RADIOLOGY Provider, [facility] - 10/30/2022 * * *Final Report* * * DATE OF EXAM: Oct 27 2022 11:44AM [facility] 0539 - CT CHEST W [...] No abnormality in the imaged upper abdomen. [employer] And Market Operator (topogram) images: No additional findings. IMPRESSION IMPRESSION: [...] any questions regarding this interpretation, please call [phone]. If you are unable to reach us at the number above, please feel free to contact [facility] at [phone]. [facility] CBC W Auto Differential pane l (Bld)on 10-27-2022 Basophils (Bld) [#/Vol] 0.03 10*3/uL [facility] Basophils/100 WBC (Bld) 0.3 % [facility] Differential cell count method Nom (Bld) Auto [facility] Eosinophils (Bld) [#/Vol] 0.06 10*3/uL [facility] Eosinophils/100 WBC (Bld) 0.7 % [facility] Erythrocyte distribution width (RBC) [Ratio] 14.0 % 11.5 - 15.0 % [facility] Hematocrit (Bld) [Volume fraction] 43.5 % 39.0 - 51.0 % [facility] Hemoglobin (Bld) [Mass/Vol] 14.5 g/dL 13.0 - 17.0 g/dL [facility] Immature granulocytes (Bld) [#/Vol] 0.03 10*3/[facility]L [facility] Immature granulocytes/100 WBC (Bld) 0.3 % [facility] Lymphocytes (Bld) [#/Vol] 2.00 10*3/uL [facility] Lymphocytes/100 WBC (Bld) 21.9 % [facility] MCH (RBC) [Entitic mass] 31.3 pg 26.0 - 34.0 pg [facility] MCHC (RBC) [Mass/Vol] 33.3 g/dL 30.5 - 36.0 g/dL [facility] MCV (RBC) [Entitic vol] 93.8 fL 80.0 - 100.0 fL [facility] Monocytes (Bld) [#/Vol] 0.53 10*3/uL [facility] Monocytes/100 WBC (Bld) 5.8 % [facility] Neutrophils (Bld) [#/Vol] 6.47 10*3/uL [facility] Neutrophils/100 WBC (Bld) 71.0 % [facility] Nucleated RBC (Bld) [#/Vol] [facility] Nucleated RBC/100 WBC (Bld) [Ratio] 0.0 % /100 WBC [facility] Platelet mean volume (Bld) [Entitic vol] 10.8 fL 9.0 - 12.7 fL [facility] Platelets (Bld) [#/Vol] 253 10*3/uL [facility] RBC (Bld) [#/Vol] 4.64 10*6/uL 4.20 - 6.00 m/uL [facility] WBC (Bld) [#/Vol] 9.12 10*3/uL [facility] CT Neck W contrast Tristin 05- IMPRESSION: Primary NIRADS Category: 1. Expected post-treatment changes in the neck without evidence of recurrent disease in the primary site. Neck NIRADS Category: 1. No evidence of abnormal lymph nodes. [email or web address] Transcribe Date/Time: Oct 27 2022 11:56A Dictated by: KATJA HAMPTON MD This examination was interpreted and the report reviewed and electronically signed by: KATJA HAMPTON MD on Oct 27 2022 12:14PM EST Thank you for allowing us to participate in the care of your patient. Should there be any questions regarding this interpretation, please call [phone]. If you are unable to reach us at the number above, please feel free to contact [facility] at [phone]. 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 Parotid and submandibular spaces are normal. Mechanical Engineering Intern spaces appear normal. Infrahyoid Neck: Hypopharynx, larynx, [...] consolidation or mass. DIVISION OF RADIOLOGY Provider, 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 Parotid and submandibular spaces are normal. Mechanical Engineering Intern spaces appear normal. Infrahyoid Neck: Hypopharynx, larynx, [...] evidence of abnormal lymph nodes. [email or web address] Transcribe Date/Time: Oct 27 2022 11:56A Dictated by: KATJA HAMPTON MD This examination was interpreted and the report reviewed and electronically signed by: KATJA HAMPTON MD on Oct 27 2022 12:14PM EST Thank you for allowing us to participate in the care of your patient. Should there be any questions regarding this interpretation, please call [phone]. If you are unable to reach us at the number above, please feel free to contact [facility] at [phone]. [facility] CT Neck W contrast IVOrdered By: Ccf Provider on 10-27-2022 [facility] metabolic 2000 panelOrdered By: Kelly Goodson on 10-27-2022 Albumin [Mass/Vol] 4.3 g/dL 3.9 - 4.9 g/dL [facility] ALP [Catalytic activity/Vol] 89 U/L 38 - 113 U/L [facility] ALT [Catalytic activity/Vol] 7 U/L Low 10 - 54 U/L [facility] Anion gap [Moles/Vol] 10 mmol/L 9 - 18 mmol/L [facility] AST [Catalytic activity/Vol] 8 U/L Low 14 - 40 U/L [facility] Bilirubin [Mass/Vol] 0.3 mg/dL 0.2 - 1 .3 mg/dL [facility] Calcium [Mass/Vol] 9.6 mg/dL 8.5 - 10. 2 mg/dL [facility] Chloride [Moles/Vol] 104 mmol/L 97 - 10 5 mmol/L [facility] CO2 [Moles/Vol] 27 mmol/L 22 - 30 mmol/L [facility] Creatinine [Mass/Vol] 0.93 mg/dL 0.73 - 1.22 mg/dL [facility] GFR/1.73 sq M.predicted among non-blacks MDRD (S/P/Bld) [Vol rate/Area] 95 mL/min/{1.73_m2} - PINF [facility] Comment on above: Estimated Glomerular Filtration Rate [...] [Mass/Vol] 98 mg/dL 74 - 99 mg/dL [facility] Comment on above: The [place] Diab[employer] s Association (ADA) provides guidance for [...] Standards of Medical Care in Diabetes 2016, [place] [employer]. Diabetes Care. 2016.39(Suppl 1). Interpretation and review of laboratory results Abnormal [facility] Potassium [Moles/Vol] 4.5 mmol/L 3.7 - 5.1 mmol/L [facility] Protein [Mass/Vol] 6.6 g/dL 6.3 - 8.0 g/dL [facility] Sodium [Moles/Vol] 141 mmol/L 136 - 144 mmol/L [facility] Urea nitrogen [Mass/Vol] 12 mg/dL 9 - 24 mg/dL [facility] No Panel Informationon 10-27 Radiology Study observation (narrative) [facility] Alanine aminotransferase [En zymatic activity/volume] in Serum or PlasmaOrdered By: Griselda Krause on 10-24-2022 ALT [Catalytic activity/Vol] 7 U/L 7-52 [facility] Albumin [Mass/volume] in Ser um or Plasma by Bromocresol green (BCG) dye binding methoOrdered By: Griselda Krause on 10-24-2022 Albumin BCG dye [Mass/Vol] 4.2 g/dL 3.5-5.7 [facility] Alkaline phosphatase [Enzyma tic activity/volume] in Serum or PlasmaOrdered By: Griselda Krause on 10-24-2022 ALP [Catalytic activity/Vol] 76 U/L 34-104 [facility] Aspartate aminotransferase [ Enzymatic activity/volume] in Serum or PlasmaOrdered By: Griselda Krause on 10-24-2022 AST [Catalytic activity/Vol] 10 U/L 13-39 [facility] Basophils Auto (Bld) [#/Vol] Ordered By: Griselda Krause on 10-24-2022 Basophils (Bld) [#/Vol] 0.0 10*3/uL 0.0-0.2 [facility] Basophils/100 WBC Auto (Bld) Ordered By: Griselda Krause on 10-24-2022 Basophils/100 WBC (Bld) 0.9 % . [facility] Bilirubin.total [Mass/volume ] in Serum or PlasmaOrdered By: Griselda Krause on 05-09-2023 Bilirubin [Mass/Vol] 0.4 mg/dL 0.3-1.0 [facility] Calcium [Mass/volume] in Ser um or PlasmaOrdered By: Griselda Krause on 10-24-2022 Calcium [Mass/Vol] 9.1 mg/dL 8.6-10.[address] [facility] Carbon dioxide, total [Moles /volume] in Serum or PlasmaOrdered By: Griselda Krause on 10-24-2022 CO2 [Moles/Vol] 28.3 mmol/L 21.0-31.0 [facility] Chloride [Moles/volume] in S rica or PlasmaOrdered By: Griselda Krause on 10-24-2022 Chloride [Moles/Vol] 105 mmol/L 98-107 [facility] Cholesterol [Mass/volume] in Serum or PlasmaOrdered By: Griselda Krause on 10-24-2022 Cholesterol [Mass/Vol] 240 mg/dL 140-200 [facility] Comment on above: Chol less than 200 m g/dl low riskChol 201-239 mg/dl borderline riskChol 240 mg/dl and greater high risk Cholesterol in LDL Calc [Mas s/Vol]Ordered By: Griselda Krause on 10-24-2022 Cholesterol in LDL [Mass/Vol] 169 mg/dL 0-100 [facility] Comment on above: LDL ATP III CLASSIFI CATIONLDL less than 100 mg/dL OptimalLDL 100-129 mg/dL Near or above optimalLDL 130-159 mg/dL Borderline highLDL 160-189 mg/dL HighLDL greater than 189 mg/dL Very high Cholesterol in VLDL Calc [Ma ss/Vol]Ordered By: Griselda Krause on 10-24-2022 Cholesterol in VLDL [Mass/Vol] 35 mg/dL [facility] Complete Blood Count Auto Di ffon 10-24-2022 Basophils (Bld) [#/Vol] 0.0 10*3/uL Normal 0.0-0.2 [facility] Comment on above: Order Comment: Reaso n for Exam Hyperlipidemia Result Comment: PERF ORMED BY: [facility] [address] [place] [address] PATHOLOGIST COOK [employer]AC[employer] KETT[employer] CARMEN LYNCH M.D. Performed By: #### P SAS, TSH3, LIPID, CMP, CBC #### [place] [address] [place] Basophils/100 WBC (Bld) 0.9 % Normal . [facility] Comment on above: Order Comment: Reaso n for Exam Hyperlipidemia Performed By: #### P SAS, TSH3, LIPID, CMP, CBC #### [place] [address] [place] Eosinophils (Bld) [#/Vol] 0.1 10*3/uL Normal 0.0-0.45 [facility] Comment on above: Order Comment: Reaso n for Exam Hyperlipidemia Performed By: #### P SAS, TSH3, LIPID, CMP, CBC #### [address] Eosinophils/100 WBC (Bld) 2.0 % Normal . [facility] Comment on above: Order Comment: Reaso n for Exam Hyperlipidemia Performed By: #### P SAS, TSH3, LIPID, CMP, CBC #### [address] Erythrocyte distribution width (RBC) [Ratio] 14.7 % Normal 12.0-14.8 [facility] Comment on above: Order Comment: Reaso n for Exam Hyperlipidemia Performed By: #### P SAS, TSH3, LIPID, CMP, CBC #### [address] Hematocrit (Bld) [Volume fraction] 43.4 % Normal 38.8-50.0 [facility] Comment on above: Order Comment: Reaso n for Exam Hyperlipidemia Performed By: #### P SAS, TSH3, LIPID, CMP, CBC #### [place] [address] [place] Hemoglobin (Bld) [Mass/Vol] 14.5 g/dL Normal 13.0-17.0 [facility] Comment on above: Order Comment: Reaso n for Exam Hyperlipidemia Performed By: #### P SAS, TSH3, LIPID, CMP, CBC #### [place] [address] [place] Lymphocytes (Bld) [#/Vol] 2.0 10*3/uL Normal 1.00-4.8 [facility] Comment on above: Order Comment: Reaso n for Exam Hyperlipidemia Performed By: #### P SAS, TSH3, LIPID, CMP, CBC #### [address] Lymphocytes/100 WBC (Bld) 39.8 % Normal . [facility] Comment on above: Order Comment: Reaso n for Exam Hyperlipidemia Performed By: #### P SAS, TSH3, LIPID, CMP, CBC #### [address] MCH (RBC) [Entitic mass] 31.5 pg Normal 27.5-35.2 [facility] Comment on above: Order Comment: Reaso n for Exam Hyperlipidemia Performed By: #### P SAS, TSH3, LIPID, CMP, CBC #### [address] MCV (RBC) [Entitic vol] 94.0 fL Normal 83.5-101 [facility] Comment on above: Order Comment: Reaso n for Exam Hyperlipidemia Performed By: #### P SAS, TSH3, LIPID, CMP, CBC #### [address] Mean Corpuscular HGB Conc 33.5 g/dL Normal 32.5-35.6 [facility] Comment on above: Order Comment: Reaso n for Exam Hyperlipidemia Performed By: #### P SAS, TSH3, LIPID, CMP, CBC #### [address] Monocytes (Bld) [#/Vol] 0.3 10*3/uL Normal 0.0-0.8 [facility] Comment on above: Order Comment: Reaso n for Exam Hyperlipidemia Performed By: #### P SAS, TSH3, LIPID, CMP, CBC #### [place] [address] [place] Monocytes/100 WBC (Bld) 5.4 % Normal . [facility] Comment on above: Order Comment: Reaso n for Exam Hyperlipidemia Performed By: #### P SAS, TSH3, LIPID, CMP, CBC #### [facility] [address] [place] [address] [place] Neutrophils (Bld) [#/Vol] 2.6 10*3/uL Normal 1.8-7.7 [facility] Comment on above: Order Comment: Reaso n for Exam Hyperlipidemia Performed By: #### P SAS, TSH3, LIPID, CMP, CBC #### [facility] [address] [place] [address] [place] Neutrophils/100 WBC (Bld) 51.9 % Normal . [facility] Comment on above: Order Comment: Reaso n for Exam Hyperlipidemia Performed By: #### P SAS, TSH3, LIPID, CMP, CBC #### [address] NRBC% 0.1 /100{WBC} Normal 0-0.5 [facility] Comment on above: Order Comment: Reaso n for Exam Hyperlipidemia Performed By: #### P SAS, TSH3, LIPID, CMP, CBC #### [place] [address] [place] Platelet mean volume (Bld) [Entitic vol] 9.6 fL Normal 6.6-10.1 [facility] Comment on above: Order Comment: Reaso n for Exam Hyperlipidemia Performed By: #### P SAS, TSH3, LIPID, CMP, CBC #### [place] [address] [place] Platelets (Bld) [#/Vol] 247 10*3/uL Normal 150-450 [facility] Comment on above: Order Comment: Reaso n for Exam Hyperlipidemia Performed By: #### P SAS, TSH3, LIPID, CMP, CBC #### [facility] [address] [place] [address] [place] RBC (Bld) [#/Vol] 4.61 10*6/uL Normal 3.90-5.60 [facility] Comment on above: Order Comment: Reaso n for Exam Hyperlipidemia Performed By: #### P SAS, TSH3, LIPID, CMP, CBC #### [place] [id number] [place] WBC (Bld) [#/Vol] 5.0 10*3/uL Normal 4.1-10.5 [facility] Comment on above: Order Comment: Reaso n for Exam Hyperlipidemia Performed By: #### P SAS, TSH3, LIPID, CMP, CBC #### [address] Comprehensive Metabolic Pane chanel 10-24-2022 Albumin [Mass/Vol] 4.2 g/dL Normal 3.5-5.7 [facility] Comment on above: Order Comment: Reaso n for Exam Hyperlipidemia Performed By: #### P SAS, TSH3, LIPID, CMP, CBC #### [address] Albumin/Globulin [Mass ratio] 2.0 {ratio} Normal [facility] Comment on above: Order Comment: Reaso n for Exam Hyperlipidemia Performed By: #### P SAS, TSH3, LIPID, CMP, CBC #### [address] ALP [Catalytic activity/Vol] 76 U/L Normal 34-104 [facility] Comment on above: Order Comment: Reaso n for Exam Hyperlipidemia Performed By: #### P SAS, TSH3, LIPID, CMP, CBC #### [address] ALT [Catalytic activity/Vol] 7 U/L Normal 7-52 [facility] Comment on above: Order Comment: Reaso n for Exam Hyperlipidemia Performed By: #### P SAS, TSH3, LIPID, CMP, CBC #### [address] Anion gap [Moles/Vol] 11.7 mmol/L Normal 6.0-15.0 Th e [facility] Comment on above: Order Comment: Reaso n for Exam Hyperlipidemia Performed By: #### P SAS, TSH3, LIPID, CMP, CBC #### [place] [address] [place] AST [Catalytic activity/Vol] 10 U/L Low 13-39 [facility] Comment on above: Order Comment: Reaso n for Exam Hyperlipidemia Performed By: #### P SAS, TSH3, LIPID, CMP, CBC #### [facility] [address] Bilirubin [Mass/Vol] 0.4 mg/dL Normal 0.3-1.0 [facility] Comment on above: Order Comment: Reaso n for Exam Hyperlipidemia Performed By: #### P SAS, TSH3, LIPID, CMP, CBC #### [facility] [address] [place] [address] Calcium [Mass/Vol] 9.1 mg/dL Normal 8.6-10.3 [facility] Comment on above: Order Comment: Reaso n for Exam Hyperlipidemia Performed By: #### P SAS, TSH3, LIPID, CMP, CBC #### [facility] [address] [place] [address] Chloride [Moles/Vol] 105 mmol/L Normal 98-107 [facility] Comment on above: Order Comment: Reaso n for Exam Hyperlipidemia Performed By: #### P SAS, TSH3, LIPID, CMP, CBC #### [facility] [address] [place] [address] [place] CO2 [Moles/Vol] 28.3 mmol/L Normal 21.0-31.0 The [facility] Comment on above: Order Comment: Reaso n for Exam Hyperlipidemia Performed By: #### P SAS, TSH3, LIPID, CMP, CBC #### [facility] [address] [place] [address] [place] Creatinine [Mass/Vol] 0.88 mg/dL Normal 0.70-1.30 [facility] Comment on above: Order Comment: Reaso n for Exam Hyperlipidemia Performed By: #### P SAS, TSH3, LIPID, CMP, CBC #### [facility] [address] [place] [address] [place] GFR/1.73 sq M.predicted MDRD (S/P/Bld) [Vol rate/Area] mL/min/{1.73_m2} Normal [facility] Comment on above: Order Comment: Reaso n for Exam Hyperlipidemia Performed By: #### P SAS, TSH3, LIPID, CMP, CBC #### [facility] [address] Globulin (S) [Mass/Vol] 2.1 g/dL Normal The [facility] Comment on above: Order Comment: Reaso n for Exam Hyperlipidemia Performed By: #### P SAS, TSH3, LIPID, CMP, CBC #### [address] Glucose [Mass/Vol] 82 mg/dL Normal 70-100 The [facility] Comment on above: Order Comment: Reaso n for Exam Hyperlipidemia Result Comment: [facility] Glucose Reference Range is dependent on time and content of last meal. Glucose of more than 200 mg/dL in a nonstressed, ambulatory subject supports the diagnosis of Diabetes Mellitus. ADA recommended reference range Performed By: #### P SAS, TSH3, LIPID, CMP, CBC #### [address] Potassium [Moles/Vol] 4.0 mmol/L Normal 3.5-5.1 [facility] Comment on above: Order Comment: Reaso n for Exam Hyperlipidemia Performed By: #### P SAS, TSH3, LIPID, CMP, CBC #### [address] Protein [Mass/Vol] 6.3 g/dL Low 6.4-8.9 The [facility] Comment on above: Order Comment: Reaso n for Exam Hyperlipidemia Performed By: #### P SAS, TSH3, LIPID, CMP, CBC #### [place] [address] [place] Sodium [Moles/Vol] 141 mmol/L Normal 136-145 The [facility] Comment on above: Order Comment: Reaso n for Exam Hyperlipidemia Performed By: #### P SAS, TSH3, LIPID, CMP, CBC #### [address] Urea nitrogen [Mass/Vol] 15 mg/dL Normal 7-25 [facility] Comment on above: Order Comment: Reaso n for Exam Hyperlipidemia Performed By: #### P SAS, TSH3, LIPID, CMP, CBC #### [facility] [address] [place] [id number] [facility] Creatinine [Mass/volume] in Serum or PlasmaOrdered By: Griselda Krause on 10-24-2022 Creatinine [Mass/Vol] 0.88 mg/dL 0.70-1.30 [facility] Eosinophils Auto (Bld) [#/Vo l]Ordered By: Griselda Krause on 10-24-2022 Eosinophils (Bld) [#/Vol] 0.1 10*3/uL 0.0-0.45 [facility] Eosinophils/100 WBC Auto (Bl d)Ordered By: Griselda Krause on 10-24-2022 Eosinophils/100 WBC (Bld) 2.0 % . [facility] Erythrocyte distribution wid th Auto (RBC) [Ratio]Ordered By: Griselda Krause on 10-24-2022 Erythrocyte distribution width (RBC) [Ratio] 14.7 % 12.0-14.8 [facility] Globulin Calc (S) [Mass/Vol] Ordered By: Griselda Krause on 10-24-2022 Globulin (S) [Mass/Vol] 2.1 g/dL [facility] Glucose [Mass/volume] in Ser um or PlasmaOrdered By: Griselda Krause on 10-24-2022 Glucose [Mass/Vol] 82 mg/dL 70-[address] [facility] Comment on above: ADA recommended refe rence rangeRandom Glucose Reference Range is dependent on time and content of last meal. Glucose of more than 200 mg/dL in a nonstressed, ambulatory subject supports the diagnosis of Diabetes Mellitus. Hematocrit Auto (Bld) [Volum e fraction]Ordered By: Griselda Krause on 10-24-2022 Hematocrit (Bld) [Volume fraction] 43.4 % 38.8-50.0 [facility] Hemoglobin [Mass/volume] in BloodOrdered By: Griselda Krause on 10-24-2022 Hemoglobin (Bld) [Mass/Vol] 14.5 g/dL 13.0-17.0 [facility] Leukocytes [#/volume] correc mone for nucleated erythrocytes in Blood by Automated counOrdered By: Griselda Krause on 10-24-2022 WBC corrected for nucl RBC Auto (Bld) [#/Vol] 5.0 10*3/uL 4.1-10.5 [facility] Lipid Panelon 10-24-2022 Cholesterol [Mass/Vol] 240 mg/dL High 140-200 Th e [facility] Comment on above: Order Comment: Reaso n for Exam Hyperlipidemia Result Comment: Chol less than 200 mg/dl low risk Chol 201-239 mg/dl borderline risk Chol 240 mg/dl and greater high risk Performed By: #### P SAS, TSH3, LIPID, CMP, CBC #### [facility] [address] [place] [id number] [place] Cholesterol in HDL [Mass/Vol] 36 mg/dL Normal 29-71 [facility] Comment on above: Order Comment: Reaso n for Exam Hyperlipidemia Result Comment: HDL CHOL ATP-III CLASSIFICATION Cardiovascular Risk HDL > or equal to 60 mg/dL LOW HDL < 40 mg/dL HIGH Performed By: #### P SAS, TSH3, LIPID, CMP, CBC #### [facility] [address] [place] [address] [place] Cholesterol.total/Chol esterol in HDL [Mass ratio] 6.7 {ratio} Normal <5.0 [facility] Comment on above: Order Comment: Reaso n for Exam Hyperlipidemia Performed By: #### P SAS, TSH3, LIPID, CMP, CBC #### [facility] [address] [place] [id number] [place] LDL Cholesterol,Calculated 169 mg/dL High 0-100 The [facility] Comment on above: Order Comment: Reaso n for Exam Hyperlipidemia Result Comment: LDL ATP III CLASSIFICATION LDL less than 100 mg/dL Optimal LDL 100-129 mg/dL Near or above optimal LDL 130-159 mg/dL Borderline high LDL 160-189 mg/dL High LDL greater than 189 mg/dL Very high Performed By: #### P SAS, TSH3, LIPID, CMP, CBC #### [facility] [address] [place] [id number] [place] Triglyceride w/Reflex 175 mg/dL High 0-149 [facility] Comment on above: Order [...] P SAS, TSH3, LIPID, CMP, CBC #### [facility] [address] VLDL CHOLESTEROL 35 mg/dL Normal The [facility] Comment on above: Order Comment: Reaso n for Exam Hyperlipidemia Performed By: #### P SAS, TSH3, LIPID, CMP, CBC #### [facility] [address] Lymphocytes Auto (Bld) [#/Vo l]Ordered By: Griselda Krause on 10-24-2022 Lymphocytes (Bld) [#/Vol] 2.0 10*3/uL 1.00-4.8 [facility] Lymphocytes/100 WBC Auto (Bl d)Ordered By: Grisleda Krause on 10-24-2022 Lymphocytes/100 WBC (Bld) 39.8 % . [facility] MCH Auto (RBC) [Entitic mass ]Ordered By: Griselda Krause on 10-24-2022 MCH (RBC) [Entitic mass] 31.5 pg 27.5-35.2 [facility] MCHC Auto (RBC) [Mass/Vol]Or dered By: Griselda Krause on 10-24-2022 MCHC (RBC) [Mass/Vol] 33.5 g/dL 32.5-35.6 [facility] MCV Auto (RBC) [Entitic vol] Ordered By: Griselda Krause on 10-24-2022 MCV (RBC) [Entitic vol] 94.0 fL 83.5-101 [facility] Monocytes Auto (Bld) [#/Vol] Ordered By: Griselda Krause on 10-24-2022 Monocytes (Bld) [#/Vol] 0.3 10*3/uL 0.0-0.8 [facility] Monocytes/100 WBC Auto (Bld) Ordered By: Griselda Krause on 10-24-2022 Monocytes/100 WBC (Bld) 5.4 % . [facility] Neutrophils Auto (Bld) [#/Vo l]Ordered By: Griselda Krause on 10-24-2022 Neutrophils (Bld) [#/Vol] 2.6 10*3/uL 1.8-7.7 [facility] Neutrophils/100 WBC Auto (Bl d)Ordered By: Griselda Krause on 10-24-2022 Neutrophils/100 WBC (Bld) 51.9 % . [facility] No Panel InformationOrdered By: Griselda Krause on 10-24-2022 Estimated GFR (CKD-EPI) > 60.0 mL/Min [facility] Creatinine Clearance (Chem N/A [facility] Nucleated erythrocytes [Pres ence] in Blood by Automated countOrdered By: Griselda Krause on 10-24-2022 Nucleated RBC Auto Ql (Bld) 0.1 /100{WBC} 0-0.5 [facility] PSA Screen (Yearly Only)on 0 10-24-2022 PSA Screen (Yearly Only) 0.370 ng/mL Normal 0.000-4.00 0 [facility] Comment on above: Order Comment: Reaso n for Exam Screening for prostate cancer Is patient <50 yrs? Medicare does not pay <50.: N What is the date of the last PSA Screen?: 560306 Is Medicare the insurance?: N Did you verify eligibility (Dx Time) check TestViewGp: YES TO ALL Result Comment: PERF ORMED BY: [place] [address] PATHOLOGIST COOK VACUUM KETTLE CARMEN LYNCH M.D. Performed By: #### P SAS, TSH3, LIPID, CMP, CBC #### [address] Platelet mean volume Auto (B ld) [Entitic vol]Ordered By: Griselda Krause on 10-24-2022 Platelet mean volume (Bld) [Entitic vol] 9.6 fL 6.6-10.1 [facility] Platelets Auto (Bld) [#/Vol] Ordered By: Griselda Krause on 10-24-2022 Platelets (Bld) [#/Vol] 247 10*3/uL 150-450 [facility] Potassium [Moles/volume] in Serum or PlasmaOrdered By: Griselda Krause on 10-24-2022 Potassium [Moles/Vol] 4.0 mmol/L 3.5-5.1 [facility] Prostate specific Ag [Mass/v olume] in Serum or PlasmaOrdered By: Griselda Krause on 10-24-2022 Prostate specific Ag [Mass/Vol] 0.370 ng/mL 0.000-4.00 0 [facility] Protein [Mass/volume] in Ser um or PlasmaOrdered By: Griselda Krause on 10-24-2022 Protein [Mass/Vol] 6.3 g/dL 6.4-8.[address] [facility] RBC Auto (Bld) [#/Vol]Ordere d By: Griselda Krause on 10-24-2022 RBC (Bld) [#/Vol] 4.61 10*6/uL 3.90-5.60 [facility] Serum or plasma albumin/glob ulin mass ratioOrdered By: Griselda Krause on 10-24-2022 Albumin/Globulin [Mass ratio] 2.0 {ratio} [facility] Serum or plasma anion gap de terminationOrdered By: Griselda Krause on 10-24-2022 Anion gap [Moles/Vol] 11.7 mmol/L 6.0-15.0 [facility] Serum or plasma high density lipoprotein (HDL) cholesterol measurementOrdered By: Griselda Krause on 10-24-2022 Cholesterol in HDL [Mass/Vol] 36 mg/dL 29-71 [facility] Comment on above: HDL CHOL ATP-III CLA SSIFICATION Cardiovascular RiskHDL > or equal to 60 mg/dL LOWHDL < 40 mg/dL HIGH Serum or plasma total choles terol/high density lipoprotein (HDL) cholesterol mass ratOrdered By: Griselda Krause on 10-24-2022 Cholesterol.total/Chol esterol in HDL [Mass ratio] 6.7 {ratio} <5.0 [facility] Sodium [Moles/volume] in Ser um or PlasmaOrdered By: Griselda Krause on 10-24-2022 Sodium [Moles/Vol] 141 mmol/L 136-[address] [facility] Thyroid Stimulating Hormoneo n 10-24-2022 TSH Qn 1.26 m[IU]/L Normal 0.45-5.33 [facility] Comment on above: Order Comment: Reaso n for Exam Hyperlipidemia Result Comment: PERF ORMED BY: [place] [address] PATHOLOGIST COOK VACUUM KETTLE CARMEN LYNCH M.D. Performed By: #### P SAS, TSH3, LIPID, CMP, CBC #### [address] Thyrotropin [Units/volume] i n Serum or PlasmaOrdered By: Griselda Krause on 10-24-2022 TSH Qn 1.26 m[IU]/L 0.45-5.33 [facility] Triglyceride [Mass/volume] i n Serum or PlasmaOrdered By: Griselda Krause on 10-24-2022 Triglyceride [Mass/Vol] 175 mg/dL 0-149 [facility] Comment on above: TRIG ATP III CLASSIF ICATIONTRIG less than 150 mg/dL NormalTRIG 150-199 mg/dL Borderline highTRIG 200-500 mg/dL High TRIG greater than 500 mg/dL Very highStandard traceable to the Center for Disease Conrtrol and Prevention (CDC) test method. Urea nitrogen [Mass/volume] in Serum or PlasmaOrdered By: Griselda Krause on 10-24-2022 Urea nitrogen [Mass/Vol] 15 mg/dL 7-25 [facility] WBC Auto (Bld) [#/Vol]Ordere d By: rGiselda Krause on 10-24-2022 WBC (Bld) [#/Vol] 5.0 10*3/uL 4.1-10.[address] [facility] BRIEF OP NOTon 09-28-2022 BRIEF OP NOT HNO ID: [id number] Author: Demond Cat APRN.NOZZLE OPERATOR Service: Interventional Radiology Author Type: Nurse Practitioner Type: Brief Op Note Filed: 09/28/2022 3:14 PM Note Text: BRIEF OPERATIVE / PROCEDURE NOTE LOG ID: [id number] SURGERY/PROCEDURE DATE: 09/28/2022 INCISION/PROCEDURE START TIME: 1:58 PM INCISION CLOSE/PROCEDURE END TIME: 2:27 PM SURGEON(S)/PROCEDURALIST( S) AND CONVEYOR BELT REPAIRER(S): Surgeon(s) and Role: * Demond Cat APRN.NOZZLE OPERATOR - Primary No Additional Staff SURGERY/PROCEDURE(S): LP [...] DIAGNOSIS: Same as Preop SIGNATURE: Demond Cat APRN.NOZZLE OPERATOR PATIENT NAME: Jovani Melendez DATE: September 28, 2022 TIME: 3:10 PM [facility] IR LUMBAR PUNCTURE DIAGon IR LUMBAR PUNCTURE DIAG * * *Final Report* * * DATE OF EXAM: Sep 28 2022 2:41PM A [id number] - IR LUMBAR PUNCTURE DIAG / [...] guidance was performed in conjunction with the lab support technician. Plane A, Air Kerma: 20.0 mGy Dose Area Product (DAP): 02149.1 mGy*cm2 Fluoro time: 3:54 min: sec Post-Procedure: [...] procedure was performed by: Demond Cat APRN.CNP Wastewater Engineer: HARPER Transcribe Date/Time: Sep 28 2022 3:15P Dictated by : DEMOND CAT CNP This examination was interpreted and the report reviewed and electronically signed by: DEMOND CAT CNP on Sep 28 2022 3:22PM EST [id number] [facility] NURSING PROGon 09-28-2022 NURSING PROG HNO ID: [id number] Author: Court Magana RN Service: Nursing Author [...] Care Provider Electronically Signed By: Court Magana [facility] MRI BRAIN WO/W IVCONon 09-22 [facility] COVID + FLU Quick Testingon 08-01-2022 SARS-CoV-2 (COVID-19) RNA JER+probe Ql (Unsp spec) Negative [email or web address] Other COVID + FLU Quick Testing neagative [email or web address] Other COVID + FLU Quick Testing Negative [email or web address] Other RSVon 08-01-2022 RSV Ag IA Ql (Unsp spec) Positive [email or web address] Other Cerebrospinal fluid post-valdez trifugation appearance determinationOrdered By: Elvi Cadena on 07-17-2022 Appearance (Spun CSF) Colorless Colorless [facility] Cerebrospinal fluid sample t ube volume measurementOrdered By: Elvi Cadena on 07-17-2022 Specimen volume (CSF) 22.0 mL [facility] Color CSFOrdered By: Elvi Cadena on 07-17-2022 Color (CSF) Colorless Colorless [facility] Manual cerebrospinal fluid e rythrocytes count (number/volume)Ordered By: Elvi Cadena on 07-17-2022 RBC Manual cnt (CSF) [#/Vol] 0 /uL [facility] Comment on above: The reference interv al and other method performance specifications have not been established for this body fluid. The test result must be integrated into the clinical context for interpretation. No Panel InformationOrdered By: Elvi Cadena on 07-17-2022 CSF Appearance Clear Clear [facility] CSF Tube Number Tube number: 1 [facility] Nucleated cells [#/volume] i n Cerebral spinal fluid by Manual countOrdered By: Elvi Cadena on 07-17-2022 Nucleated cells Manual cnt (CSF) [#/Vol] 0.003 10*3/uL 0-5 [facility] Activated partial thrombopla stin time (aPTT) in platelet poor plasma by coagulation aOrdered By: Landy Wong on 04-16-2022 aPTT Coag (PPP) [Time] 32.8 s 25.1-36.5 Fi [facility] Basophils Auto (Bld) [#/Vol] Ordered By: Landy Wong on 04-16-2022 Basophils (Bld) [#/Vol] 0.1 10*3/uL 0.0-0.2 [facility] Basophils/100 WBC Auto (Bld) Ordered By: Landy Wong on 04-16-2022 Basophils/100 WBC (Bld) 1.2 % . [facility] Creatine kinase [Enzymatic a ctivity/volume] in Serum or PlasmaOrdered By: Landy Wong on 04-16-2022 CK [Catalytic activity/Vol] 69 U/L 22-269 [facility] Creatinine and Glomerular fi ltration rate.predicted panel (S/P/Bld)Ordered By: Landy Wong on 04-16-2022 Creatinine [Mass/Vol] 0.97 mg/dL 0.64-1.27 [facility] Eosinophils Auto (Bld) [#/Vo l]Ordered By: Landy Wong on 04-16-2022 Eosinophils (Bld) [#/Vol] 0.1 10*3/uL 0.0-0.45 [facility] Eosinophils/100 WBC Auto (Bl d)Ordered By: Landy Wong on 04-16-2022 Eosinophils/100 WBC (Bld) 1.2 % . [facility] Erythrocyte distribution wid th Auto (RBC) [Ratio]Ordered By: Landy Wong on 04-16-2022 Erythrocyte distribution width (RBC) [Ratio] 14.1 % 12.0-14.8 [facility] Estimated glomerular filtrat ion rate (GFR) non- AmericanOrdered By: Landy Wong on 04-16-2022 GFR/1.73 sq M.predicted among non-blacks MDRD (S/P/Bld) [Vol rate/Area] > 60 mL/Min [facility] Hematocrit Auto (Bld) [Volum e fraction]Ordered By: Landy Wong on 04-16-2022 Hematocrit (Bld) [Volume fraction] 43.2 % 38.8-50.0 [facility] Hemoglobin [Mass/volume] in BloodOrdered By: Landy Wong on 04-16-2022 Hemoglobin (Bld) [Mass/Vol] 14.7 g/dL 13.0-17.0 [facility] - Chemistry and C hemistry - challengeOrdered By: Landy Wong on 04-16-2022 Natriuretic peptide B (Bld) [Mass/Vol] 29.0 pg/mL 5-100 [facility] - CoagulationOrde red By: Landy Wong on 04-16-2022 PT Coag (PPP) [Time] 12.0 s 9.0-12.9 [facility] - Hematology and Cell countsOrdered By: Landy Wong on 04-16-2022 Nucleated RBC/100 WBC (Bld) [Ratio] 0.1 % 0-0.5 [facility] Leukocytes [#/volume] in Blo od by Automated countOrdered By: Landy Wong on 04-16-2022 WBC (Bld) [#/Vol] 7.7 10*3/uL 4.5-11.[address] [facility] Lymphocytes Auto (Bld) [#/Vo l]Ordered By: Landy Wong on 04-16-2022 Lymphocytes (Bld) [#/Vol] 2.3 10*3/uL 1.00-4.8 [facility] Lymphocytes/100 WBC Auto (Bl d)Ordered By: Landy Wong on 04-16-2022 Lymphocytes/100 WBC (Bld) 29.4 % . [facility] MCH Auto (RBC) [Entitic mass ]Ordered By: Landy Wong on 04-16-2022 MCH (RBC) [Entitic mass] 32.0 pg 27.5-35.2 [facility] MCHC Auto (RBC) [Mass/Vol]Or dered By: Landy Wong on 04-16-2022 MCHC (RBC) [Mass/Vol] 34.0 g/dL 32.5-35.6 [facility] MCV Auto (RBC) [Entitic vol] Ordered By: Landy Wong on 04-16-2022 MCV (RBC) [Entitic vol] 94.0 fL 83.5-101 [facility] Monocytes Auto (Bld) [#/Vol] Ordered By: Landy Wong on 04-16-2022 Monocytes (Bld) [#/Vol] 0.6 10*3/uL 0.0-0.8 [facility] Monocytes/100 WBC Auto (Bld) Ordered By: Landy Wong on 04-16-2022 Monocytes/100 WBC (Bld) 7.7 % . [facility] Neutrophils Auto (Bld) [#/Vo l]Ordered By: Landy Wong on 04-16-2022 Neutrophils (Bld) [#/Vol] 4.7 10*3/uL 1.8-7.7 [facility] Neutrophils/100 WBC Auto (Bl d)Ordered By: Landy Wong on 04-16-2022 Neutrophils/100 WBC (Bld) 60.5 % . [facility] No Panel InformationOrdered By: Landy Wong on 04-16-2022 D-Dimer Quantitative (PE/DVT) < 200 ng/mL 0-243 [facility] Comment on above: The reference range [...] conditions. Estimated GFR () > 60 mL/Min [facility] Comment on above: GFR estimated refere nce range: According to KDOQI guidelines, <60 ml/min/1.73m2 is sufficient to diagnose a patient with chronic kidney disease. Pharmacy Creatinine Clearance (Chem 79.33 [facility] Platelet mean volume Auto (B ld) [Entitic vol]Ordered By: Landy Wong on 04-16-2022 Platelet mean volume (Bld) [Entitic vol] 9.7 fL 6.6-10.1 [facility] Platelet poor plasma interna tional normalized ratio (INR) by coagulation assay (relatOrdered By: Landy Wong on 04-16-2022 INR Coag (PPP) [Relative time] 1.1 {INR} [facility] Comment on above: INR Therapeutic Rang [...] 04-16-2022 Platelets (Bld) [#/Vol] 238 10*3/uL 150-450 [facility] RBC Auto (Bld) [#/Vol]Ordere d By: Landy Wong on 04-16-2022 RBC (Bld) [#/Vol] 4.59 10*6/uL 3.90-5.60 [facility] Serum or plasma anion gap de terminationOrdered By: Landy Wong on 04-16-2022 Anion gap [Moles/Vol] 12.4 mmol/L 6.0-15.0 [facility] Serum or plasma calcium paramjit urement (mass/volume)Ordered By: Landy Wong on 04-16-2022 Calcium [Mass/Vol] 9.0 mg/dL 8.2-10.[address] [facility] Serum or plasma chloride robby surement (moles/volume)Ordered By: Landy Wong on 04-16-2022 Chloride [Moles/Vol] 103 mmol/L 95-114 [facility] Serum or plasma creatine kin ase MB (CKMB)/total creatine kinase (CK) ratio by calculaOrdered By: Landy Wong on 04-16-2022 CK.MB Calc [Catalytic fraction] 2.0 % 0.00-2.50 [facility] Serum or plasma creatine kin ase MB measurement (mass/volume)Ordered By: Landy Wong on 04-16-2022 CK.MB [Mass/Vol] 1.4 ng/mL 0.6-6.3 [facility] Serum or plasma glucose paramjit urement (mass/volume)Ordered By: Landy Wong on 04-16-2022 Glucose [Mass/Vol] 88 mg/dL 70-[address] [facility] Comment on above: ADA recommended refe rence rangeRandom Glucose Reference Range is dependent on time and content of last meal. Glucose of more than 200 mg/dL in a nonstressed, ambulatory subject supports the diagnosis of Diabetes Mellitus. Serum or plasma potassium me asurement (moles/volume)Ordered By: Landy Wong on 04-16-2022 Potassium [Moles/Vol] 4.3 mmol/L 3.5-5.1 [facility] Serum or plasma sodium measu rement (moles/volume)Ordered By: Landy Wong on 04-16-2022 Sodium [Moles/Vol] 135 mmol/L 136-[address] [facility] Serum or plasma total carbon dioxide measurement (moles/volume)Ordered By: Landy Wong on 04-16-2022 CO2 [Moles/Vol] 23.9 mmol/L 22.0-30.0 [facility] Serum or plasma urea nitroge n measurement (mass/volume)Ordered By: Landy Wong on 04-16-2022 Urea nitrogen [Mass/Vol] 12 mg/dL 9-23 [facility] Troponin I.cardiac [Mass/vol ume] in Serum or Plasma by High sensitivity methodOrdered By: Landy Wong on 04-16-2022 Troponin I.cardiac High sensitivity method [Mass/Vol] 5 pg/mL 0-20 [facility] COVID Quick Testingon 2021 Result Negative [employer] Other Quick Fluon 03-16-2022 FLUAV Ab CF (S) [Titer] Negative [email or web address] Other FLUBV Ab CF (S) [Titer] Negative [email or web address] Other MRI Brain w/o + w/on 022 [...] by Jillian Morales on 01/18/2022 1413 Normal [facility] 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 IgG clearance/Albumin clearance (S+CSF) [Ratio] 0.56 {ratio} [...] sclerosis will have a negative result.Performed By: [address] [place] [id number] Director: Paula Middleton MD Albumin (CSF) [Mass/Vol] Canceled [facility] Work Phone: [phone] Albumin [Mass/Vol] Canceled [facility]-Luis rosurge Panoratio[facility] Work Phone: [phone] Glucose (CSF) [Mass/Vol] 56 mg/dL 40 - 70 [facility]uro[facility]ge [facility] Work Phone: [phone] IgG (CSF) [Mass/Vol] [...] a) No falls within the last year [facility] Work Phone: Tobacco use status CPHS a) Yes [facility] Work Phone: Blood Pressure Cuff Size Adult [facility] Work Phone: Initial Visit (Neurosurgery) on 11-03-2021 Initial Visit (Neurosurgery) Diagnoses/Problems Weight loss (783.21) (R63.4) Anxiety (300.00) (F41.9) Depression (311) (F32.A) History of high cholesterol (V12.29) (Z86.39) 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 In [...] He saw Dr. Ba a neurologist in [facility]. He describes his vision as seeing [...] MG Oral Tablet Vitals Vital Signs Recorded: [id number] 09:38AM Njisqatjyrc66.2 F Heart Rate63 Csfckgunjgp89 Trnhnnvu926 Fmfneqaxf60 Blood Pressure Cuff SizeAdult Height5 ft 7.13 in Ohpbka004 lb 6 oz BMI Ngvtwcgoxo72.05 kg/m2 BSA Calculated1.91 Tobacco Usea) Yes Fall Screeninga) No falls within the last year O2 Dzxnvjsjgb59 Pain Scale7 Physical Exam Constitutional - General appearance: No acute distress, well de (more content not included)... Normal [place] Office Visit Presurgicalon 0 - Office Visit Presurgical Diagnoses/Problems Assessed Weight loss (783.21) (R63.4) Anxiety (300.00) (F41.9) Depression (311) (F32.A) History of high cholesterol (V12.29) (Z86.39) Ischemic demyelination of brain (341.8,437.1) (G37.8,I67.82) History of squamous cell carcinoma (V10.89) (Z85.89) History of Excision melanoma Provider Impressions Met with the patient and his for dcuyegwtelkfp14''s of which were spent in consultation. In [...] weakness numbness or seizure. He saw Dr. aB a neurologist in [facility]. He describes his vision as seeing [...] MG Oral Tablet Vitals Vital Signs Recorded: [id number] 09:38AM Uzijzsdudgt76.2 F Heart Rate63 Rzvhlxuzrug84 Izhtacog844 Szhjwxrap45 Blood Pressure Cuff SizeAdult Height5 ft 7.13 in Vxelkf797 lb 6 oz BMI Jvdoafbvug47.05 kg/m2 BSA Calculated1.91 Tobacco Usea) Yes Fall Screeninga) No falls within the last year O2 Lvppjgapth03 Pain Scale7 Ph (more content not included)... Normal Touchworks CBC W Auto Differential pane l (Bld)on 10-06-2021 Basophils (Bld) [#/Vol] 0.06 10*3/uL [facility] Basophils/100 WBC (Bld) 0.8 % [facility] Differential cell count method Nom (Bld) Auto [facility] Eosinophils (Bld) [#/Vol] 0.11 10*3/uL [facility] Eosinophils/100 WBC (Bld) 1.5 % [facility] Erythrocyte distribution width (RBC) [Ratio] 12.8 % 11.5 - 15.0 % [facility] Hematocrit (Bld) [Volume fraction] 43.7 % 39.0 - 51.0 % [facility] Hemoglobin (Bld) [Mass/Vol] 14.6 g/dL 13.0 - 17.0 g/dL [facility] Immature granulocytes (Bld) [#/Vol] NINF [facility] Immature granulocytes/100 WBC (Bld) 0.3 % [facility] Lymphocytes (Bld) [#/Vol] 1.75 10*3/uL [facility] Lymphocytes/100 WBC (Bld) 23.7 % [facility] MCH (RBC) [Entitic mass] 32.7 pg 26.0 - 34.0 pg [facility] MCHC (RBC) [Mass/Vol] 33.4 g/dL 30.5 - 36.0 g/dL [facility] MCV (RBC) [Entitic vol] 98.0 fL 80.0 - 100.0 fL [facility] Monocytes (Bld) [#/Vol] 0.52 10*3/[facility] Monocytes/100 WBC (Bld) 7.0 % [facility] Neutrophils (Bld) [#/Vol] 4.92 10*3/uL [facility] Neutrophils/100 WBC (Bld) 66.7 % [facility] Nucleated RBC (Bld) [#/Vol] NINF [facility] Nucleated RBC/100 WBC (Bld) [Ratio] 0.0 % /100 WBC [facility] Platelet mean volume (Bld) [Entitic vol] 10.8 fL 9.0 - 12.7 fL [facility] Platelets (Bld) [#/Vol] 246 10*3/uL [facility] RBC (Bld) [#/Vol] 4.46 10*6/uL 4.20 - 6.00 m/uL [facility] WBC (Bld) [#/Vol] 7.38 10*3/uL [facility] This is an appended report. These results have been appended to a previously verified report. [facility] CT Chest W contrast Tristin IMPRESSION: 1. Left-sided subcentimeter pulmonary nodules, stable. 2. Nonspecific, sclerotic foci involving bilateral ribs, unchanged. 3. No substantial intrathoracic adenopathy is identified. Transcribe Date/Time: Oct 06 2021 9:08A Dictated by: ELIZABETH HELLER MD This examination was interpreted and the report reviewed and electronically signed by: ELIZABETH HELLER MD on Oct 06 2021 9:21AM EST Thank you for allowing us to participate in the care of your patient. Should there be any questions regarding this interpretation, please call [phone]. If you are unable to reach us at the number above, please feel free to contact [facility] at [phone]. ZZZ_DO_NOT_US E_DIVISION OF RADIOLOGY * * *Final Report* * * DATE OF EXAM: Oct 06 2021 8:22AM [facility] 0539 - CT CHEST W IVCON / PROCEDURE REASON: multiple diagnoses * * * * Physician Interpretation * * * * RESULT: EXAMINATION: CHEST CT WITH CONTRAST Indication: Primary squamous cell carcinoma of head and neck. Technique: Spiral CT acquisition of the chest from the thoracic inlet to the upper abdomen following IV contrast. M: [id number]_4 Contrast: 150 mL Omnipaque [address] Dose-Length Product: 749 mGy*cm CT Dose Reduction Employed: Automated exposure control (AEC) Comparison: CT chest 10/08/2020 RESULT: Limitations: None. Lines, tubes, and devices: None. Lung parenchyma , airways, and pleural space: No consolidative process or pleural effusion. Moderate centrilobular emphysematous changes are again appreciated. The trachea and major airways appear patent. Mild, diffuse bronchial wall thickening is again noted. 7 mm nodular opacity within the left upper lobe, adjacent reticulonodular opacities within this region, images 60-63, series 3, stable. 2 mm left upper lobe nodule, image 33, series 3, stable. Lower neck, lymph nodes, and mediastinum: A CT examination of the neck has been performed concurrently and will be dictated separately no substantial axillary adenopathy. Scattered subcentimeter mediastinal lymph nodes are appreciated, likely enlarged, stable. No substantial mediastinal or hilar adenopathy is identified. Heart, pericardium, and thoracic vessels: The thoracic aorta is normal in caliber. Coronary artery calcification is noted. No substantial pericardial effusion. Bones/Soft Tissues: Degenerative change involving the thoracic spine is appreciated. No osseous destructive process is identified. Patchy sclerosis involving the lateral aspect of the right 4th rib is again noted, stable. Additional small sclerotic focus involving the lateral aspect of the left 5th rib, stable. No osseous destructive process. Upper Abdomen: Limited images through the upper abdomen appear stable. [employer] (topogram) images: No additional findings. ZZZ_DO_NOT_US E_DIVISION OF RADIOLOGY Provider, Helen Emil[facility] - 10/06/2021 * * *Final Report* * * DATE OF EXAM: Oct 06 2021 8:22AM [facility] 0539 - CT CHEST W IVCON / PROCEDURE REASON: multiple diagnoses * * * * Physician Interpretation * * * * RESULT: EXAMINATION: CHEST CT WITH CONTRAST Indication: Primary squamous cell carcinoma of head and neck. Technique: Spiral CT acquisition of the chest from the thoracic inlet to the upper abdomen following IV contrast. M: [id number]_4 Contrast: 150 mL Omnipaque [address] Dose-Length Product: 749 mGy*cm CT Dose Reduction Employed: Automated exposure control (AEC) Comparison: CT chest 10/08/2020 RESULT: Limitations: None. Lines, tubes, and devices: None. Lung parenchyma , airways, and pleural space: No consolidative process or pleural effusion. Moderate centrilobular emphysematous changes are again appreciated. The trachea and major airways appear patent. Mild, diffuse bronchial wall thickening is again noted. 7 mm nodular opacity within the left upper lobe, adjacent reticulonodular opacities within this region, images 60-63, series 3, stable. 2 mm left upper lobe nodule, image 33, series 3, stable. Lower neck, lymph nodes, and mediastinum: A CT examination of the neck has been performed concurrently and will be dictated separately no substantial axillary adenopathy. Scattered subcentimeter mediastinal lymph nodes are appreciated, likely enlarged, stable. No substantial mediastinal or hilar adenopathy is identified. Heart, pericardium, and thoracic vessels: The thoracic aorta is normal in caliber. Coronary artery calcification is noted. No substantial pericardial effusion. Bones/Soft Tissues: Degenerative change involving the thoracic spine is appreciated. No osseous destructive process is identified. Patchy sclerosis involving the lateral aspect of the right 4th rib is again noted, stable. Additional small sclerotic focus involving the lateral aspect of the left 5th rib, stable. No osseous destructive process. Upper Abdomen: Limited images through the upper abdomen appear stable. [employer] (topogram) images: No additional findings. IMPRESSION IMPRESSION: 1. Left-sided subcentimeter pulmonary nodules, stable. 2. Nonspecific, sclerotic foci involving bilateral ribs, unchanged. 3. No substantial intrathoracic adenopathy is identified. Transcribe Date/Time: Oct 06 2021 9:08A Dictated by: ELIZABETH HELLER MD This examination was interpreted and the report reviewed and electronically signed by: ELIZABETH HELLER MD on Oct 06 2021 9:21AM EST Thank you for allowing us to participate in the care of your patient. Should there be any questions regarding this interpretation, please call [phone]. If you are unable to reach us at the number above, please feel free to contact [facility] at [phone]. [facility] CT Neck W contrast Tristin 04-2 IMPRESSION: MODERATE DEGENERATIVE CHANGES INVOLVING THE CERVICAL SPINE. MODERATE ATHEROSCLEROSIS INVOLVING THE CAROTID BIFURCATIONS AND CAROTID SIPHONS. OTHERWISE, UNREMARKABLE CT NECK WITH CONTRAST. NO SIGNIFICANTLY ENLARGED LYMPH NODES. Transcribe Date/Time: Oct 06 2021 8:48A Dictated by: ADITI ADAMSON MD This examination was interpreted and the report reviewed and electronically signed by: ADITI ADAMSON MD on Oct 06 2021 8:53AM EST Thank you for allowing us to participate in the care of your patient. Should there be any questions regarding this interpretation, please call [phone]. If you are unable to reach us at the number above, please feel free to contact [facility] at [phone]. ZZZ_DO_NOT_US E_DIVISION OF RADIOLOGY * * *Final Report* * * DATE OF EXAM: Oct 06 2021 8:22AM [facility] 0013 - CT NECK SOFT TISSUE W IVCON / PROCEDURE REASON: multiple diagnoses * * * * Physician Interpretation * * * * RESULT: CT of the neck with contrast. HISTORY: Malignant neoplasm of head, face, and neck. TECHNIQUE: Multiple postcontrast axial CT images were obtained through the soft tissues of the neck. In addition, sagittal and coronal reformats were obtained. Contrast dose: 150 mL Omnipaque [address] Dose-Length Product (DLP): [address] Dose Reduction Employed: Automated exposure control (AEC) COMPARISON: Prior CT neck dated 10/08/2020. RESULT: Imaged portions of the brain parenchyma are unremarkable. The parotid and submandibular glands demonstrate normal size and density characteristics. Nasopharyngeal tissues appear within normal limits. Aryepiglottic folds and piriform sinuses are within the range of normal. No laryngeal abnormality is identified. Thyroid gland is unremarkable. No significantly enlarged lymph nodes are seen throughout the soft tissues of the neck. Imaged portions of the upper lungs are clear. Moderate degenerative changes involve the cervical spine. Moderate atherosclerosis involves the carotid bifurcations and carotid siphons. ZZZ_DO_NOT_US E_DIVISION OF RADIOLOGY Provider, [facility] - 10/06/2021 * * *Final Report* * * DATE OF EXAM: Oct 06 2021 8:22AM [facility] 0013 - CT NECK SOFT TISSUE W IVCON / PROCEDURE REASON: multiple diagnoses * * * * Physician Interpretation * * * * RESULT: CT of the neck with contrast. HISTORY: Malignant neoplasm of head, face, and neck. TECHNIQUE: Multiple postcontrast axial CT images were obtained through the soft tissues of the neck. In addition, sagittal and coronal reformats were obtained. Contrast dose: 150 mL Omnipaque [address] Dose-Length Product (DLP): [address] Dose Reduction Employed: Automated exposure control (AEC) COMPARISON: Prior CT neck dated 10/08/2020. RESULT: Imaged portions of the brain parenchyma are unremarkable. The parotid and submandibular glands demonstrate normal size and density characteristics. Nasopharyngeal tissues appear within normal limits. Aryepiglottic folds and piriform sinuses are within the range of normal. No laryngeal abnormality is identified. Thyroid gland is unremarkable. No significantly enlarged lymph nodes are seen throughout the soft tissues of the neck. Imaged portions of the upper lungs are clear. Moderate degenerative changes involve the cervical spine. Moderate atherosclerosis involves the carotid bifurcations and carotid siphons. IMPRESSION IMPRESSION: MODERATE DEGENERATIVE CHANGES INVOLVING THE CERVICAL SPINE. MODERATE ATHEROSCLEROSIS INVOLVING THE CAROTID BIFURCATIONS AND CAROTID SIPHONS. OTHERWISE, UNREMARKABLE CT NECK WITH CONTRAST. NO SIGNIFICANTLY ENLARGED LYMPH NODES. Transcribe Date/Time: Oct 06 2021 8:48A Dictated by: ADITI ADAMSON MD This examination was interpreted and the report reviewed and electronically signed by: ADITI ADAMSON MD on Oct 06 2021 8:53AM EST Thank you for allowing us to participate in the care of your patient. Should there be any questions regarding this interpretation, please call [phone]. If you are unable to reach us at the number above, please feel free to contact [facility] at [phone]. [facility] CT Neck W contrast IVOrdered By: [facility]cf Provider on 10-06-2021 [facility] Comprehensive metabolic 2000 panelOrdered By: Micheal Vizcaino on 10-06-2021 Albumin [Mass/Vol] 4.5 g/dL 3.9 - 4.9 g/dL [facility] ALP [Catalytic activity/Vol] 82 U/L 38 - 113 U/L [facility] ALT [Catalytic activity/Vol] 25 U/L 10 - 54 U/L [facility] Anion gap [Moles/Vol] 10 mmol/L 9 - 18 mmol/L [facility] AST [Catalytic activity/Vol] 21 U/L 14 - 40 U/L [facility] Bilirubin [Mass/Vol] 0.6 mg/dL 0.2 - 1 .3 mg/dL [facility] Calcium [Mass/Vol] 9.5 mg/dL 8.5 - 10. 2 mg/dL [facility] Chloride [Moles/Vol] 106 mmol/L High 97 - 10 5 mmol/L [facility] CO2 [Moles/Vol] 29 mmol/L 22 - 30 mmol/L [facility] Creatinine [Mass/Vol] 1.01 mg/dL 0.73 - 1.22 mg/dL [facility] GFR/1.73 sq M.predicted among non-blacks MDRD (S/P/Bld) [Vol rate/Area] 86 mL/min/{1.73_m2} - PINF [facility] Comment on above: Estimated Glomerular Filtration Rate [...] not accurately reflect actual GFR. Glucose [Mass/Vol] 107 mg/dL High 74 - 99 mg/dL [facility] Comment on above: The [place] [employer] Association (ADA) provides guidance for [...] Standards of Medical Care in Diabetes 2016, [place] [employer]. Diabetes Care. 2016.39(Suppl 1). Interpretation and review of laboratory results Abnormal [facility] Potassium [Moles/Vol] 4.2 mmol/L 3.7 - 5.1 mmol/L [facility] Protein [Mass/Vol] 6.5 g/dL 6.3 - 8.0 g/dL [facility] Sodium [Moles/Vol] 145 mmol/L High 136 - 144 mmol/L [facility] Urea nitrogen [Mass/Vol] 10 mg/dL 9 - 24 mg/dL [facility] No Panel Informationon 10-06 Radiology Study observation (narrative) [facility] COVID + FLU Quick Testingon 06-30-2021 SARS-CoV-2 (COVID-19) RNA JER+probe Ql (Unsp spec) Negative [email or web address] Other COVID + FLU Quick Testing Negative [email or web address] Other COVID Quick Testingon 2020 Result Negative [email or web address] Other Basophils Auto (Bld) [#/Vol] on 09-20-2020 Basophils (Bld) [#/Vol] 0.0 10*3/uL 0.0-0.2 [facility] Basophils/100 WBC Auto (Bld) on 09-20-2020 Basophils/100 WBC (Bld) 0.6 % [facility] Blood hemoglobin measurement (mass/volume)on 09-20-2020 Hemoglobin (Bld) [Mass/Vol] 14.4 g/dL 13.0-17.0 [facility] Blood leukocytes automated c ount (number/volume)on 09-20-2020 WBC (Bld) [#/Vol] 7.4 10*3/uL 4.5-11.0 [facility] Eosinophils Auto (Bld) [#/Vo l]on 09-20-2020 Eosinophils (Bld) [#/Vol] 0.1 10*3/uL 0.0-0.45 [facility] Eosinophils/100 WBC Auto (Bl d)on 09-20-2020 Eosinophils/100 WBC (Bld) 0.9 % [facility] Erythrocyte distribution wid th Auto (RBC) [Ratio]on 09-20-2020 Erythrocyte distribution width (RBC) [Ratio] 14.6 % 12.0-14.8 [facility] Hematocrit Auto (Bld) [Volum e fraction]on 09-20-2020 Hematocrit (Bld) [Volume fraction] 41.7 % 38.8-50.0 [facility] Lymphocytes Auto (Bld) [#/Vo l]on 09-20-2020 Lymphocytes (Bld) [#/Vol] 1.6 10*3/uL 1.00-4.8 [facility] Lymphocytes/100 WBC Auto (Bl d)on 09-20-2020 Lymphocytes/100 WBC (Bld) 21.3 % [facility] MCH Auto (RBC) [Entitic mass ]on 09-20-2020 MCH (RBC) [Entitic mass] 32.4 pg 27.5-35.2 [facility] MCHC Auto (RBC) [Mass/Vol]on 09-20-2020 MCHC (RBC) [Mass/Vol] 34.5 g/dL 32.5-35.6 [facility] MCV Auto (RBC) [Entitic vol] on 09-20-2020 MCV (RBC) [Entitic vol] 93.9 fL 83.5-101 [facility] Monocytes Auto (Bld) [#/Vol] on 09-20-2020 Monocytes (Bld) [#/Vol] 0.6 10*3/uL 0.0-0.8 [facility] Monocytes/100 WBC Auto (Bld) on 09-20-2020 Monocytes/100 WBC (Bld) 8.6 % [facility] Neutrophils Auto (Bld) [#/Vo l]on 09-20-2020 Neutrophils (Bld) [#/Vol] 5.1 10*3/uL 1.8-7.7 [facility] Neutrophils/100 WBC Auto (Bl d)on 09-20-2020 Neutrophils/100 WBC (Bld) 68.6 % [facility] Otheron 09-20-2020 Nucleated RBC/100 WBC (Bld) [Ratio] 0.0 % 0-0.5 [facility] Platelet mean volume Auto (B ld) [Entitic vol]on 09-20-2020 Platelet mean volume (Bld) [Entitic vol] 9.3 fL 6.6-10.1 [facility] Platelets Auto (Bld) [#/Vol] on 09-20-2020 Platelets (Bld) [#/Vol] 182 10*3/uL 150-450 [facility] RBC Auto (Bld) [#/Vol]on RBC (Bld) [#/Vol] 4.44 10*6/uL 3.90-5.60 [facility] Body fluid albumin measureme nt (mass/volume)on 09-13-2020 Albumin (Body fld) [Mass/Vol] 4.3 g/dL 3.2-5.5 [facility] Cholesterol [Mass/volume] in Serum or Plasmaon 09-13-2020 Cholesterol [Mass/Vol] 219 mg/dL 140-[address] [facility] Comment on above: Chol less than 200 m g/dl low riskChol 201-239 mg/dl borderline riskChol 240 mg/dl and greater high risk Cholesterol in LDL Calc [Mas s/Vol]on 09-13-2020 Cholesterol in LDL [Mass/Vol] 149 mg/dL 0-100 [facility] Comment on above: LDL ATP III CLASSIFI CATIONLDL less than 100 mg/dL OptimalLDL 100-129 mg/dL Near or above optimalLDL 130-159 mg/dL Borderline highLDL 160-189 mg/dL HighLDL greater than 189 mg/dL Very high Cholesterol in VLDL Calc [Ma ss/Vol]on 09-13-2020 Cholesterol in VLDL [Mass/Vol] 28 mg/dL [facility] Creatinine and Glomerular fi ltration rate.predicted panel (S/P/Bld)on 09-13-2020 Creatinine [Mass/Vol] 0.89 mg/dL 0.64-1.[address] [facility] GFR/1.73 sq M.predicted roverto g non-blacks MDRD (S/P/Bld) [Vol rate/Area]on 09-13-2020 GFR/1.73 sq M predicted among non-blacks MDRD (S/P/Bld) [Vol rate/Area] > 60 mL/Min [facility] Globulin Calc (S) [Mass/Vol] on 09-13-2020 Globulin (S) [Mass/Vol] 2.0 g/dL [facility] No Panel Informationon 09-13 Estimated GFR () > 60 mL/Min [facility] Comment on above: GFR estimated refere nce range: According to KDOQI guidelines, <60 ml/min/1.73m2 is sufficient to diagnose a patient with chronic kidney disease. Otheron 09-13-2020 GFR/1.73 sq M.predicted MDRD (S/P/Bld) [Vol rate/Area] > 60 mL/Min [facility] Comment on above: GFR estimated refere nce range: According to KDOQI guidelines, <60 ml/min/1.73m2 is sufficient to diagnose a patient with chronic kidney disease. Pharmacy Creatinine Clearance (Chem N/A [facility] Prostate Specific Antigen Screen 0.480 ng/mL 0.000-4.00 0 [facility] Protein [Mass/volume] in Ser um or Plasmaon 09-13-2020 Protein [Mass/Vol] 6.3 g/dL 6.1-7.9 [facility] SARS-CoV-2 (COVID-19) IgG Ab [Presence] in Serum or Plasma by Immunoassayon 09-13-2020 SARS-CoV-2 (COVID-19) IgG Ab [Presence] in Serum or Plasma by Immunoassay Positive Negative [facility] Comment on above: Results suggest rece nt or prior infection with SARS-CoV-2.Correlation with epidemiologic risk factors and otherclinical and laboratory findings is recommended. Serologicresults should not be used as the sole basis to diagnose orexclude recent SARS-CoV-2 infection. False positive resultsinfrequently occur due to prior infection with other humanCoronaviruses.This assay was performed using the [employer] L[employer]ison(R)SARS-CoV-2 S1/S2 IgG assay.This assay detects antibodies against SARS-CoV-2 spikeprotein including the receptor binding domain (RBD).Performed at: [facility] [id number] Director: Florencio Wu PhD, Phone: [phone] SARS-CoV-2 (COVID-19) IgG IA Ql Positive Negative [facility] Comment on above: Results suggest rece nt or prior infection with SARS-CoV-2.Correlation with epidemiologic risk factors and otherclinical and laboratory findings is recommended. Serologicresults should not be used as the sole basis to diagnose orexclude recent SARS-CoV-2 infection. False positive resultsinfrequently occur due to prior infection with other humanCoronaviruses.This assay was performed using the [employer] Liaison(R)SARS-CoV-2 S1/S2 IgG assay.This assay detects antibodies against SARS-CoV-2 spikeprotein including the receptor binding domain (RBD).Performed at: [facility] [id number] Director: Florencio Wu PhD, Phone: [phone] Serum or plasma alanine mclaughlin otransferase measurement without P-5'-P (enzymatic activion 09-13-2020 ALT No additional P-5'-P [Catalytic activity/Vol] 19 U/L 10-60 [facility] Serum or plasma albumin/glob ulin mass ratioon 09-13-2020 Albumin/Globulin [Mass ratio] 2.2 {ratio} [facility] Serum or plasma alkaline fuentes sphatase measurement (enzymatic activity/volume)on 09-13-2020 ALP [Catalytic activity/Vol] 53 U/L 32-92 [facility] Serum or plasma aspartate am inotransferase measurement (enzymatic activity/volume)on 09-13-2020 AST [Catalytic activity/Vol] 22 U/L 10-42 [facility] Serum or plasma calcium paramjit urement (mass/volume)on 09-13-2020 Calcium [Mass/Vol] 9.1 mg/dL 8.2-10.2 [facility] Serum or plasma chloride robby surement (moles/volume)on 09-13-2020 Chloride [Moles/Vol] 105 mmol/L 95-114 [facility] Serum or plasma glucose paramjit urement (mass/volume)on 09-13-2020 Glucose [Mass/Vol] 97 mg/dL 70-100 [facility] Comment on above: ADA recommended refe rence rangeRandom Glucose Reference Range is dependent on time and content of last meal. Glucose of more than 200 mg/dL in a nonstressed, ambulatory subject supports the diagnosis of Diabetes Mellitus. Serum or plasma high density lipoprotein (HDL) cholesterol measurementon 09-13-2020 Cholesterol in HDL [Mass/Vol] 41 mg/dL - [facility] Comment on above: HDL CHOL ATP-III CLA SSIFICATION Cardiovascular RiskHDL > or equal to 60 mg/dL LOWHDL < 40 mg/dL HIGH Serum or plasma potassium me asurement (moles/volume)on 09-13-2020 Potassium [Moles/Vol] 4.2 mmol/L 3.5-5.1 [facility] Serum or plasma sodium measu rement (moles/volume)on 09-13-2020 Sodium [Moles/Vol] 135 mmol/L 136-146 [facility] Serum or plasma thyroid stim ulating hormone (TSH) measurement by high sensitivity meton 09-13-2020 TSH Qn 1.66 u[iU]/mL 0.45-5.33 [facility] Serum or plasma total biliru bin measurement (mass/volume)on 09-13-2020 Bilirubin [Mass/Vol] 0.9 mg/dL 0.3-1.2 [facility] Serum or plasma total carbon dioxide measurement (moles/volume)on 09-13-2020 CO2 [Moles/Vol] 22.5 mmol/L 22.0-30.0 [facility] Serum or plasma total choles terol/high density lipoprotein (HDL) cholesterol mass gia 09-13-2020 Cholesterol.total/Chol esterol in HDL [Mass ratio] 5.3 {ratio} [facility] Serum or plasma urea nitroge n measurement (mass/volume)on 09-13-2020 Urea nitrogen [Mass/Vol] 12 mg/dL 9-23 [facility] TSH DL <= 0.005 mIU/L Qnon 0 09-13-2020 TSH Qn 1.66 m[IU]/L 0.45-5.33 [facility] Triglyceride [Mass/volume] i n Serum or Plasmaon 09-13-2020 Triglyceride [Mass/Vol] 144 mg/dL 35-149 [facility] Comment on above: TRIG ATP III CLASSIF [...] eye. Coleen Grajeda M.D. aek Dictated: 04/14/2019 #[id number] Typed 04/14/2019 #[id number] cc: Coleen Grajeda M.D. [facility] Comment on above: Result Comment: Elec [...] and inferior fornices of the eye. A atVenuan manometer was set on the eye at [...] condition. Coleen Grajeda M.D. gls Dictated: 04/14/2019 #[id number] Typed: 04/15/2019 #[id number] cc: Coleen Grajeda M.D. [facility] Comment on above: Result Comment: Elec tronically Signed By: Taras NORRIS, Coleen Chen.br\Date and Time Signed: 04/18/19 09:54 EDT Coding Summary.on 04-15-2019 Coding Summary. 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 Name: NORA JOVANIRIOS Ashraf./Sex: 1960 Male Med Rec #: [id number] Physician: Coleen Grajeda MD Financial #: [id number] Pt. Type: A Room/Bed: [place] [address] Admit/Disch: 04/14/19 12:59:00 - 04/14/19 16:00:00 Institution: [...] Surgeon - Primary Scrub - Primary Manager Investigations - Primary Time In 04/14/19 14:55:00 04/14/19 [...] Pauly GOODEN, RN, Tierra Role Performed Manager Investigations - Primary Manager Investigations - Relief Time In 04/14/19 14:55:00 04/14/19 [...] Unable to Visualize, Outcomes Met? Yes Warm, [place], Dry Last Modified By: Johnathon Karimi RN 04/14/19 15:02:52 Post-Care Text: The patient is free from signs and symptoms of injury caused by extraneous objects General Comments: pt partially clothed, unable to assess all of skin/ ant rn Patient Positioning FT Pre-Care Text: Identifies [...] RN Patient Status Stable Skin. 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 Implant Log FT Pre-Care Text: Records devices implanted during the operative or invasive procedure Entry 1 Procedure CATARACT EXTRACTION W/ Implant/Explant Implant INTRAOCULAR LENS(Left) Implant Identification FT Description MONTY [employer]OL [id number] Serial Number [id number] SIZE 21.0 [CC18NHS 21.0][F] Lot Number [id number] [employer] Catalog ?# [id number] 21.0[F] Expiration Date 10/16/23 Unique Device [id number] Identifier (BERNARD) Usage Data FT Implant Site [...] 15:16 Asya Alves CST 04/15/19 14:44 Normal [facility] Inpatient Patient Summaryon 04-14-2019 Inpatient Patient Summary [facility] Clinical Discharge Instructions PERSON INFORMATION Name: JOVANI MELENDEZ PHYSICIANS Admitting Physician: Coleen Grajeda MD Attending Physician: Coleen Grajeda MD PCP: JILLIAN BARONE DO Discharge Diagnosis: Cataract Comment: PATIENT EDUCATION INFORMATION Instructions: Medication Leaflets: Follow up: With: Address: When: Coleen Mcgee [facility] [address], [place] [address] Business (1) Comments: Call physician if symptoms worsen Keep scheduled appointment MEDICATION LIST Comment: Normal [facility] Main OR PACU II [facility] Main OR PACU II Record PACU Phase II Doc ument Type FT Summary Primary Physician: Coleen Grajeda MD Finalized Date/Time: 04/14/19 17:54:42 Pt. Name: JOVANI MELENDEZ /Sex: 1960 Male Med Rec #: [id number] Physician: Coleen Grajeda MD Financial #: [id number] Pt. Type: A Room/Bed: [place] [address] Admit/Disch: 04/14/19 12:59:23 - Institution: Case Times [...] By: Lizeth Rush RN 04/14/19 17:54 Normal [facility] Main OR Preoperative Recordo n 04-14-2019 Main OR Preoperative Record PreOp Document Type FT Summary Primary Physician: Coleen Grajeda MD Finalized Date/Time: 04/14/19 15:14:03 Pt. Name: JOVANI MELENDEZ/Sex: 1960 Male Med Rec #: [id number] Physician: Coleen Grajeda MD Financial #: [id number] Pt. Type: A Room/Bed: [place] [address] Admit/Disch: 04/14/19 12:59:23 - Institution: Case Times [...] By: Johnathon Karimi RN 04/14/19 15:14 Normal [facility] Patient Education - Texton 1 Patient Education - Text Normal [facility] Vital Signs Date Time Vital Sign Value Performing Clinician Facility 01-31-2024 10:24-0400 Body height 172.72 cm [facility] 01-31-2024 10:24-0400 Body mass index (BMI) [Ratio] 27.3 kg/m2 [facility] 01-31-2024 10:24-0400 Body weight 81.64 kg [facility] 01-31-2024 10:24-0400 Diastolic blood pressure 70 mm[Hg] [facility] 01-31-2024 10:24-0400 Heart rate 75 /min [facility] 01-31-2024 10:24-0400 Respiratory rate 18 /min [facility] 01-31-2024 10:24-0400 SaO2% (BldA) [Mass fraction] 98 % [facility] 01-31-2024 10:24-0400 Systolic blood pressure 122 mm[Hg] [facility] 12-03-2023 10:51-0400 Body height 172.72 cm DO Griselda Kuns Work Phone: [facility] 12-03-2023 10:51-0400 Body mass index (BMI) [Ratio] 26.1 kg/m2 DO Griselda Kuns Work Phone: [facility] 12-03-2023 10:51-0400 Body weight 78.01 kg DO Griselda Kuns Work Phone: [facility] 12-03-2023 10:51-0400 Diastolic blood pressure 82 mm[Hg] DO Griselda Kuns Work Phone: [facility] 12-03-2023 10:51-0400 Heart rate 97 /min DO Griselda Kuns Work Phone: [facility] 12-03-2023 10:51-0400 Respiratory rate 18 /min DO Griselda Kuns Work Phone: [facility] 12-03-2023 10:51-0400 SaO2% (BldA) [Mass fraction] 96 % DO Griselda Kuns Work Phone: [facility] 12-03-2023 10:51-0400 Systolic blood pressure 110 mm[Hg] DO Griselda Kuns Work Phone: [facility] 11-02-2023 09:49-0400 Body height 170.6 cm Memo Cole MD Work Phone: [facility] 11-02-2023 09:49-0400 Body mass index (BMI) [Ratio] 27.38 kg/m2 Memo Cole MD Work Phone: [facility] 11-02-2023 09:49-0400 Body temperature 97.7 [degF] Memo Cole MD Work Phone: [facility] 11-02-2023 09:49-0400 Body weight 79.7 kg Memo Cole MD Work Phone: [facility] 11-02-2023 09:49-0400 Diastolic blood pressure 76 mm[Hg] Memo Cole MD Work Phone: [facility] 11-02-2023 09:49-0400 Heart rate 72 /min Memo Cole MD Work Phone: [facility] 11-02-2023 09:49-0400 Respiratory rate 16 /min Memo Cole MD Work Phone: [facility] 11-02-2023 09:49-0400 SaO2% (BldA) [Mass fraction] 99 % Memo Cole MD Work Phone: [facility] 11-02-2023 09:49-0400 Systolic blood pressure 130 mm[Hg] Memo Cole MD Work Phone: [facility] 10-29-2023 10:32-0400 Body height 172.72 cm DO Griselda Kuns Work Phone: [facility] 10-29-2023 10:32-0400 Body mass index (BMI) [Ratio] 26.6 kg/m2 DO Griselda Kuns Work Phone: [facility] 10-29-2023 10:32-0400 Body weight 79.37 kg DO Griselda Kuns Work Phone: [facility] 10-29-2023 10:32-0400 Diastolic blood pressure 82 mm[Hg] DO Griselda Kuns Work Phone: [facility] 10-29-2023 10:32-0400 Heart rate 71 /min DO Griselda Kuns Work Phone: [facility] 10-29-2023 10:32-0400 Respiratory rate 16 /min DO Griselda Kuns Work Phone: [facility] 10-29-2023 10:32-0400 SaO2% (BldA) [Mass fraction] 98 % DO Griselda Kuns Work Phone: [facility] 10-29-2023 10:32-0400 Systolic blood pressure 128 mm[Hg] DO Grisleda Kuns Work Phone: [facility] 10-18-2023 09:02-0400 Diastolic blood pressure 68 mm[Hg] DO Griselda Kuns Work Phone: [facility] 10-18-2023 09:02-0400 Systolic blood pressure 132 mm[Hg] DO Griselda Kuns Work Phone: [facility] 10-18-2023 08:58-0400 Body height 172.72 cm DO Griselda Kuns Work Phone: [facility] 10-18-2023 08:58-0400 Body mass index (BMI) [Ratio] 26.6 kg/m2 DO Griselda Kuns Work Phone: [facility] 10-18-2023 08:58-0400 Body weight 79.37 kg DO Griselda Kuns Work Phone: [facility] 10-18-2023 08:58-0400 Heart rate 57 /min DO Griselda Kuns Work Phone: [facility] 10-18-2023 08:58-0400 Respiratory rate 18 /min DO Griselda Kuns Work Phone: [facility] 10-18-2023 08:58-0400 SaO2% (BldA) [Mass fraction] 98 % DO Griselda Kuns Work Phone: [facility] 10-05-2023 09:37-0400 Body height 172.2 cm Ignacia Jack MD Work Phone: [facility] 10-05-2023 09:37-0400 Body mass index (BMI) [Ratio] 26.25 kg/m2 Ignacia Jack MD Work Phone: [facility] 10-05-2023 09:37-0400 Body temperature 97.3 [degF] Ignacia Jack MD Work Phone: [facility] 10-05-2023 09:37-0400 Body weight 77.84 kg Ignacia Jack MD Work Phone: [facility] 10-05-2023 09:37-0400 Diastolic blood pressure 68 mm[Hg] Ignacia Jack MD Work Phone: [facility] 10-05-2023 09:37-0400 Heart rate 81 /min Ignacia Jack MD Work Phone: [facility] 10-05-2023 09:37-0400 Respiratory rate 16 /min Ignacia Jack MD Work Phone: [facility] 10-05-2023 09:37-0400 SaO2% (BldA) [Mass fraction] 99 % Ignacia Jack MD Work Phone: [facility] 10-05-2023 09:37-0400 Systolic blood pressure 116 mm[Hg] Ignacia Jack MD Work Phone: [facility] 09-05-2023 13:44-0400 Diastolic blood pressure 99 mm[Hg] DO Griselda Kuns Work Phone: [facility] 09-05-2023 13:44-0400 Systolic blood pressure 160 mm[Hg] DO Griselda Kuns Work Phone: [facility] 09-05-2023 13:41-0400 Body height 172.72 cm DO Griselda Kuns Work Phone: [facility] 09-05-2023 13:41-0400 Body mass index (BMI) [Ratio] 27.8 kg/m2 DO Griselda Kuns Work Phone: [facility] 09-05-2023 13:41-0400 Body weight 83 kg DO Griselda Kuns Work Phone: [facility] 09-05-2023 13:41-0400 Heart rate 66 /min DO Griselda Kuns Work Phone: [facility] 09-05-2023 13:41-0400 Respiratory rate 18 /min DO Griselda Kuns Work Phone: [facility] 09-05-2023 13:41-0400 SaO2% (BldA) [Mass fraction] 99 % DO Griselda Kuns Work Phone: [facility] 09-05-2023 11:58-0400 Body height 172.72 cm DO Griselda Kuns Work Phone: [facility] 09-05-2023 11:58-0400 Body mass index (BMI) [Ratio] 27.3 kg/m2 DO Griselda Kuns Work Phone: [facility] 09-05-2023 11:58-0400 Body temperature 97.8 [degF] DO Griselda Kuns Work Phone: [facility] 09-05-2023 11:58-0400 Body weight 81.64 kg DO Griselda Kuns Work Phone: [facility] 09-05-2023 11:58-0400 Diastolic blood pressure 92 mm[Hg] DO Griselda Kuns Work Phone: [facility] 09-05-2023 11:58-0400 Heart rate 71 /min DO Griselda Kuns Work Phone: [facility] 09-05-2023 11:58-0400 SaO2% (BldA) [Mass fraction] 96 % DO Griselda Kuns Work Phone: [facility] 09-05-2023 11:58-0400 Systolic blood pressure 160 mm[Hg] DO Griselda Kuns Work Phone: [facility] 08-15-2023 15:41-0500 Body height 172.72 cm DO Griselda Kuns Work Phone: [facility] 08-15-2023 15:41-0500 Body mass index (BMI) [Ratio] 28.1 kg/m2 DO Griselda Kuns Work Phone: [facility] 08-15-2023 15:41-0500 Body weight 84.08 kg DO Griselda Kuns Work Phone: [facility] 08-15-2023 15:41-0500 Diastolic blood pressure 72 mm[Hg] DO Griselda Kuns Work Phone: [facility] 08-15-2023 15:41-0500 Heart rate 62 /min DO Griselda Kuns Work Phone: [facility] 08-15-2023 15:41-0500 Respiratory rate 18 /min DO Griselda Kuns Work Phone: [facility] 08-15-2023 15:41-0500 SaO2% (BldA) [Mass fraction] 99 % DO Griselda Kuns Work Phone: [facility] 02-28-2024 15:41-0500 Systolic blood pressure 128 mm[Hg] DO Griselda Kuns Work Phone: [facility] 08-02-2023 13:11-0500 Body height 172.72 cm DO Griselda Kuns Work Phone: [facility] 08-02-2023 13:11-0500 Body mass index (BMI) [Ratio] 27.9 kg/m2 DO Griselda Kuns Work Phone: [facility] 08-02-2023 13:11-0500 Body weight 83.46 kg DO Griselda Kuns Work Phone: [facility] 08-02-2023 13:11-0500 Diastolic blood pressure 70 mm[Hg] DO Griselda Kuns Work Phone: [facility] 08-02-2023 13:11-0500 Heart rate 68 /min DO Griselda Kuns Work Phone: [facility] 08-02-2023 13:11-0500 Respiratory rate 16 /min DO Griselda Kuns Work Phone: [facility] 08-02-2023 13:11-0500 SaO2% (BldA) [Mass fraction] 97 % DO Griselda Kuns Work Phone: [facility] 08-02-2023 13:11-0500 Systolic blood pressure 130 mm[Hg] DO Griselda Kuns Work Phone: [facility] 07-02-2023 09:30-0500 Body height 172.72 cm Griselda Kuns Other [facility] 07-02-2023 09:30-0500 Body mass index (BMI) [Ratio] 28.28 kg/m2 Griselda Kuns Other [facility] [employer] Other 07-02-2023 09:30-0500 Body weight 84.37 kg Griselda Veodias Other [email or web address] Other 07-02-2023 09:30-0500 Body weight 84.36 kg DO Griselda Kuns Work Phone: [facility] 07-02-2023 09:30-0500 Diastolic blood pressure 92 mm[Hg] Griselda Kuns Other [facility] 07-02-2023 09:30-0500 Respiratory rate 16 /min Griselda Kuns Other [email or web address] Other 07-02-2023 09:30-0500 SaO2% (BldA) [Mass fraction] 97 % Griselda Kuns Other [facility] Other 07-02-2023 09:30-0500 Systolic blood pressure 160 mm[Hg] Griselda Kuns Other [facility] 05-31-2023 13:45-0500 Body height 172.72 cm Griselda Kuns Other [facility] 05-31-2023 13:45-0500 Body mass index (BMI) [Ratio] 27.37 kg/m2 Griselda Kuns Other [facility] Other 05-31-2023 13:45-0500 Body weight 81.65 kg Griselda Kuns Other [facility] [employer] Other 05-31-2023 13:45-0500 Body weight 81.64 kg DO Griselda Kuns Work Phone: [facility] 05-31-2023 13:45-0500 Diastolic blood pressure 80 mm[Hg] Griselda Kuns Other [facility] 05-31-2023 13:45-0500 Respiratory rate 18 /min Griselda Kuns Other [facility] Other 05-31-2023 13:45-0500 SaO2% (BldA) [Mass fraction] 98 % Griselda Krause Other [email or web address] Other 05-31-2023 13:45-0500 Systolic blood pressure 120 mm[Hg] Griselda Krause Other [facility] 05-30-2023 11:15-0500 Body height 172.72 cm Ruddy Ovalledoris Other [facility] 05-30-2023 11:15-0500 Body mass index (BMI) [Ratio] 27.52 kg/m2 Ruddy Wes Other [employer] Other 05-30-2023 11:15-0500 Body temperature 97.8 [degF] Ruddy Wes Other [facility] Other 05-30-2023 11:15-0500 Body weight 82.1 kg Ruddy Wes Other [facility] 05-30-2023 11:15-0500 SaO2% (BldA) [Mass fraction] 98 % Ruddy Ovalledoris Other [employer] Other 05-15-2023 13:20-0500 Body height 172.72 cm Lilliam Cason Other [facility] 05-15-2023 13:20-0500 Body mass index (BMI) [Ratio] 27.52 kg/m2 Lilliam Kamla Other [employer] Other 05-15-2023 13:20-0500 Body weight 82.1 kg Lilliam Kamla Other [facility] 05-15-2023 13:20-0500 Diastolic blood pressure 84 mm[Hg] Lilliam Cason Other [facility] 05-15-2023 13:20-0500 Respiratory rate 18 /min Lilliam Cason Other [facility] Other 05-15-2023 13:20-0500 SaO2% (BldA) [Mass fraction] 98 % Lilliam Cason Other [facility] Other 05-15-2023 13:20-0500 Systolic blood pressure 142 mm[Hg] Lilliam Cason Other [facility] 05-07-2023 13:16-0500 Diastolic blood pressure 78 mm[Hg] DO Griselda Veodias Work Phone: [facility] 05-07-2023 13:16-0500 Heart rate 75 /min DO Griselda Veodias Work Phone: [facility] 05-07-2023 13:16-0500 Respiratory rate 16 /min DO Griselda Veodias Work Phone: [facility] 05-07-2023 13:16-0500 SaO2% (BldA) [Mass fraction] 96 % DO Griselda Veodias Work Phone: [facility] 05-07-2023 13:16-0500 Systolic blood pressure 135 mm[Hg] DO Griselda Veodias Work Phone: [facility] 05-07-2023 10:30-0500 Inhaled oxygen flow rate 3 L/min DO Griselda Veodias Work Phone: [facility] 05-07-2023 08:29-0500 Body height 172.72 cm DO Griselda Veodias Work Phone: [facility] 05-07-2023 08:29-0500 Body weight 79.37 kg DO Griselda Veodias Work Phone: [facility] 05-03-2023 09:15-0500 Body height 172.72 cm Ruddy Wes Other [employer] Other 05-03-2023 09:15-0500 Body mass index (BMI) [Ratio] 27.06 kg/m2 Ruddy Wes Other [employer] Other 05-03-2023 09:15-0500 Body temperature 97.8 [degF] Ruddy Wes Other [employer] Other 05-03-2023 09:15-0500 Body weight 80.74 kg Ruddy Wes Other [employer] Other 05-03-2023 09:15-0500 Diastolic blood pressure 78 mm[Hg] Ruddy Harvey Other [employer] Other 05-03-2023 09:15-0500 SaO2% (BldA) [Mass fraction] 97 % Ruddy Wes Other [employer] Other 05-03-2023 09:15-0500 Systolic blood pressure 146 mm[Hg] Ruddy Harvey Other [employer] Other 05-01-2023 10:30-0500 Body height 172.72 cm Griselda Krause Other [employer] Other 05-01-2023 10:30-0500 Body mass index (BMI) [Ratio] 27.06 kg/m2 Griselda Veodias Other [employer] Other 05-01-2023 10:30-0500 Body weight 80.74 kg Griseldakeith Mendezs Other [employer] Other 05-01-2023 10:30-0500 Diastolic blood pressure 80 mm[Hg] Griselda Kuns Other [employer] Other 05-01-2023 10:30-0500 Respiratory rate 18 /min Griselda Kuns Other [employer] Other 05-01-2023 10:30-0500 SaO2% (BldA) [Mass fraction] 96 % Griselda Andreas Other [employer] Other 05-01-2023 10:30-0500 Systolic blood pressure 144 mm[Hg] Griselda Kuns Other [employer] Other 04-11-2023 10:40-0400 Body height 172.72 cm Lilliam Kamla Other [employer] Other 04-11-2023 10:40-0400 Body mass index (BMI) [Ratio] 26.67 kg/m2 Lilliam Kamla Other [employer] Other 04-11-2023 10:40-0400 Body weight 79.56 kg Lilliam Kamla Other [employer] Other 04-11-2023 10:40-0400 Diastolic blood pressure 80 mm[Hg] Lilliam Kamla Other [employer] Other 04-11-2023 10:40-0400 SaO2% (BldA) [Mass fraction] 96 % Lilliam Kamla Other [employer] Other 04-11-2023 10:40-0400 Systolic blood pressure 148 mm[Hg] Lilliam Kamla Other [facility] Other 03-21-2023 02:42-0400 Diastolic blood pressure 98 mm[Hg] DO Griselda Kuns Work Phone: [facility] 03-21-2023 02:42-0400 Heart rate 72 /min DO Griselda Kuns Work Phone: [facility] 03-21-2023 02:42-0400 Respiratory rate 16 /min DO Griselda Kuns Work Phone: [facility] 03-21-2023 02:42-0400 SaO2% (BldA) [Mass fraction] 97 % DO Griselda Kuns Work Phone: [facility] 03-21-2023 02:42-0400 Systolic blood pressure 170 mm[Hg] DO Griselda Kuns Work Phone: [facility] 03-21-2023 00:12-0400 Body height 172.72 cm DO Griselda Kuns Work Phone: [facility] 03-21-2023 00:12-0400 Body temperature 98 [degF] DO Griselda Kuns Work Phone: [facility] 03-21-2023 00:12-0400 Body weight 79.37 kg DO Griselda Kuns Work Phone: [facility] 03-15-2023 10:30-0400 Body height 172.72 cm Griselda Veodias Other [facility] Other 03-15-2023 10:30-0400 Body mass index (BMI) [Ratio] 26.76 kg/m2 Griselda Veodias Other [facility] Other 03-15-2023 10:30-0400 Body weight 79.83 kg Griselda Veodias Other [employer] Other 03-15-2023 10:30-0400 Diastolic blood pressure 86 mm[Hg] Griselda Kuns Other [employer] Other 03-15-2023 10:30-0400 Respiratory rate 16 /min Griselda Kuns Other [employer] Other 03-15-2023 10:30-0400 SaO2% (BldA) [Mass fraction] 97 % Griselda Kuns Other [employer] Other 03-15-2023 10:30-0400 Systolic blood pressure 174 mm[Hg] Griselda Kuns Other [employer] Other 03-08-2023 10:00-0400 Body height 172.72 cm Griselda Kuns Other [employer] Other 03-08-2023 10:00-0400 Body mass index (BMI) [Ratio] 27.18 kg/m2 Griselda Kuns Other [employer] Other 03-08-2023 10:00-0400 Body weight 81.1 kg Griselda Kuns Other [employer] Other 03-08-2023 10:00-0400 Diastolic blood pressure 82 mm[Hg] Griselda Kuns Other [employer] Other 03-08-2023 10:00-0400 Respiratory rate 16 /min Griselda Kuns Other [employer] Other 03-08-2023 10:00-0400 SaO2% (BldA) [Mass fraction] 96 % Griselda Kuns Other [employer] Other 03-08-2023 10:00-0400 Systolic blood pressure 118 mm[Hg] Griselda Veodias Other [facility] Other 02-26-2023 14:13-0400 Body height 172.72 cm DO Griselda Kuns Work Phone: [facility] 02-26-2023 14:13-0400 Body temperature 98 [degF] DO Griselda Kuns Work Phone: [facility] 02-26-2023 14:13-0400 Body weight 78.6 kg DO Griselda Kuns Work Phone: [facility] 02-26-2023 14:13-0400 Diastolic blood pressure 77 mm[Hg] DO Griselda Kuns Work Phone: [facility] 02-26-2023 14:13-0400 Heart rate 56 /min DO Griselda Kuns Work Phone: [facility] 02-26-2023 14:13-0400 Respiratory rate 18 /min DO Griselda Kuns Work Phone: [facility] 02-26-2023 14:13-0400 SaO2% (BldA) [Mass fraction] 96 % DO Griselda Kuns Work Phone: [facility] 02-26-2023 14:13-0400 Systolic blood pressure 142 mm[Hg] DO Griselda Kuns Work Phone: [facility] 12-05-2022 10:15-0400 Body height 172.72 cm [employer] Other [facility] Other 12-05-2022 10:15-0400 Body mass index (BMI) [Ratio] 25.85 kg/m2 Griselda Veodias Other [facility] [employer] Other 12-05-2022 10:15-0400 Body weight 77.11 kg Griselda Krause Other [employer] Other 12-05-2022 10:15-0400 Diastolic blood pressure 80 mm[Hg] Griselda Mendezs Other [employer] Other 12-05-2022 10:15-0400 Respiratory rate 16 /min Griselda Krause Other [employer] Other 12-05-2022 10:15-0400 SaO2% (BldA) [Mass fraction] 96 % Griselda Krause Other [employer] Other 12-05-2022 10:15-0400 Systolic blood pressure 140 mm[Hg] Griselda Krause Other [employer] Other 09-13-2022 10:57-0400 Body height 170.6 cm Kelly Moorek PA-C Work Phone: [facility] 09-13-2022 10:57-0400 Body temperature 97.39 [degF] Kelly Moorek PA-C Work Phone: [facility] 09-13-2022 10:57-0400 Body weight 77.34 kg Kelly Moorek PA-C Work Phone: [facility] 09-13-2022 10:57-0400 Diastolic blood pressure 61 mm[Hg] Kelly Moorek PA-C Work Phone: [facility] 09-13-2022 10:57-0400 Heart rate 70 /min Kelly Moorek PA-C Work Phone: [facility] 09-13-2022 10:57-0400 Respiratory rate 18 /min Kelly Moorek PA-C Work Phone: [facility] 09-13-2022 10:57-0400 SaO2% (BldA) [Mass fraction] 100 % Kelly Perez PA-C Work Phone: [facility] 09-13-2022 10:57-0400 Systolic blood pressure 133 mm[Hg] Kelly Ana CERVANTES Work Phone: [facility] 08-31-2022 11:15-0400 Body height 172.72 cm Griselda Andreas Other [employer] Other 08-31-2022 11:15-0400 Body mass index (BMI) [Ratio] 26.79 kg/m2 Griselda Kuns Other [employer] Other 08-31-2022 11:15-0400 Body weight 79.92 kg Griselda Kuns Other [employer] Other 08-31-2022 11:15-0400 Diastolic blood pressure 78 mm[Hg] Griselda Kuns Other [employer] Other 08-31-2022 11:15-0400 Respiratory rate 16 /min Griselda Kuns Other [employer] Other 08-31-2022 11:15-0400 SaO2% (BldA) [Mass fraction] 98 % Griselda Kuns Other [employer] Other 08-31-2022 11:15-0400 Systolic blood pressure 138 mm[Hg] Griselda Kuns Other [employer] Other 08-01-2022 10:30-0500 Body height 172.72 cm Griselda Kuns Other [employer] Other 08-01-2022 10:30-0500 Body mass index (BMI) [Ratio] 27.27 kg/m2 Griselda Kuns Other [employer] Other 08-01-2022 10:30-0500 Body weight 81.38 kg Griselda Kuns Other [employer] Other 08-01-2022 10:30-0500 Diastolic blood pressure 82 mm[Hg] Griselda Kuns Other [employer] Other 08-01-2022 10:30-0500 Respiratory rate 16 /min Griselda Kuns Other [employer] Other 08-01-2022 10:30-0500 SaO2% (BldA) [Mass fraction] 99 % Griselda Kuns Other [employer] Other 08-01-2022 10:30-0500 Systolic blood pressure 146 mm[Hg] Griselda Kuns Other [facility] [employer] Other 07-17-2022 09:45-0500 Diastolic blood pressure 98 mm[Hg] DO Griselda Kuns Work Phone: [facility] 07-17-2022 09:45-0500 Heart rate 69 /min DO Griselda Kuns Work Phone: [facility] 07-17-2022 09:45-0500 Respiratory rate 16 /min DO Griselda Kuns Work Phone: [facility] 07-17-2022 09:45-0500 SaO2% (BldA) [Mass fraction] 99 % DO Griselda Kuns Work Phone: [facility] 07-17-2022 09:45-0500 Systolic blood pressure 144 mm[Hg] DO Griselda Kuns Work Phone: [facility] 07-17-2022 07:58-0500 Body height 172.72 cm DO Griselda Kuns Work Phone: [facility] 07-17-2022 07:58-0500 Body weight 79.37 kg DO Griselda Kuns Work Phone: [facility] 06-28-2022 10:20-0500 Body height 172.72 cm Trish Blades Other [employer] Other 06-28-2022 10:20-0500 Body mass index (BMI) [Ratio] 26.67 kg/m2 Trish Blades Other [employer] Other 06-28-2022 10:20-0500 Body weight 79.56 kg Trish Blades Other [employer] Other 06-28-2022 10:20-0500 Diastolic blood pressure 80 mm[Hg] Trish Blades Other [employer] Other 06-28-2022 10:20-0500 Systolic blood pressure 140 mm[Hg] Trish Blades Other [email or web address] Other 05-26-2022 13:30-0500 Body height 172.72 cm Griselda Kuns Other [employer] Other 05-26-2022 13:30-0500 Body mass index (BMI) [Ratio] 26.7 kg/m2 Griselda Kuns Other [employer] Other 05-26-2022 13:30-0500 Body weight 79.65 kg Griselda Kuns Other [employer] Other 05-26-2022 13:30-0500 Diastolic blood pressure 82 mm[Hg] Griselda Kuns Other [place] [employer] Other 05-26-2022 13:30-0500 Respiratory rate 18 /min Griselda Kuns Other [employer] Other 05-26-2022 13:30-0500 SaO2% (BldA) [Mass fraction] 98 % Griselda Kuns Other [employer] Other 05-26-2022 13:30-0500 Systolic blood pressure 144 mm[Hg] Griselda Kuns Other [place] [employer] Other 04-17-2022 00:30-0400 Diastolic blood pressure 64 mm[Hg] DO Griselda Kuns Work Phone: [facility] 04-17-2022 00:30-0400 Heart rate 78 /min DO Griselda Kuns Work Phone: [facility] 04-17-2022 00:30-0400 Respiratory rate 16 /min DO Griselda Kuns Work Phone: [facility] 04-17-2022 00:30-0400 SaO2% (BldA) [Mass fraction] 97 % DO Griselda Kuns Work Phone: [facility] 04-17-2022 00:30-0400 Systolic blood pressure 135 mm[Hg] DO Griselda Kuns Work Phone: [facility] 04-16-2022 19:45-0400 Body height 172.72 cm DO Griselda Kuns Work Phone: [facility] 04-16-2022 19:45-0400 Body temperature 98.1 [degF] DO Griselda Kuns Work Phone: [facility] 04-16-2022 19:45-0400 Body weight 78 kg DO Griselda Kuns Work Phone: [facility] 04-06-2022 16:31-0400 Body height 172.72 cm DO Griselda Kuns Work Phone: [facility] 04-06-2022 16:31-0400 Body temperature 98.1 [degF] DO Griselda Kuns Work Phone: [facility] 04-06-2022 16:31-0400 Body weight 79.37 kg DO Griselda Kuns Work Phone: [facility] 04-06-2022 16:31-0400 Diastolic blood pressure 108 mm[Hg] DO Griselda Kuns Work Phone: [facility] 04-06-2022 16:31-0400 Heart rate 95 /min DO Griselda Kuns Work Phone: [facility] 04-06-2022 16:31-0400 Respiratory rate 19 /min DO Griselda Kuns Work Phone: [facility] 04-06-2022 16:31-0400 SaO2% (BldA) [Mass fraction] 97 % DO Grsielda Kuns Work Phone: [facility] 04-06-2022 16:31-0400 Systolic blood pressure 138 mm[Hg] DO Griselda Kuns Work Phone: [facility] 03-16-2022 13:30-0400 Body height 172.72 cm Griselda Veodias Other [employer] [facility] [employer] Other 03-16-2022 13:30-0400 Body mass index (BMI) [Ratio] 26.91 kg/m2 Griselda Veodias Other [employer] [facility] [employer] Other 03-16-2022 13:30-0400 Body weight 80.29 kg Griselda Veodias Other [employer] Other 03-16-2022 13:30-0400 Diastolic blood pressure 80 mm[Hg] Griselda Kuns Other [employer] Other 03-16-2022 13:30-0400 Respiratory rate 16 /min Griselda Kuns Other [employer] Other 03-16-2022 13:30-0400 SaO2% (BldA) [Mass fraction] 97 % Griselda Kuns Other [employer] Other 03-16-2022 13:30-0400 Systolic blood pressure 140 mm[Hg] Griselda Kuns Other [employer] Other 01-30-2022 12:00-0400 Body height 172.72 cm Griselda Kuns Other [employer] Other 01-30-2022 12:00-0400 Body mass index (BMI) [Ratio] 26.3 kg/m2 Griselda Kuns Other [employer] Other 01-30-2022 12:00-0400 Body weight 78.47 kg Griselda Kuns Other [employer] Other 01-30-2022 12:00-0400 Diastolic blood pressure 82 mm[Hg] Griselda Kuns Other [employer] Other 01-30-2022 12:00-0400 Respiratory rate 16 /min Griselda Kuns Other [employer] Other 01-30-2022 12:00-0400 SaO2% (BldA) [Mass fraction] 99 % Griselda Kuns Other [employer] Other 01-30-2022 12:00-0400 Systolic blood pressure 146 mm[Hg] Griselda Kuns Other [employer] Other 12-26-2021 11:00-0400 Body height 172.72 cm Griselda Kuns Other [employer] Other 12-26-2021 11:00-0400 Body mass index (BMI) [Ratio] 26.61 kg/m2 Griselda Kuns Other [employer] Other 12-26-2021 11:00-0400 Body weight 79.38 kg Griselda Kuns Other [employer] Other 12-26-2021 11:00-0400 Diastolic blood pressure 80 mm[Hg] Griselda Kuns Other [employer] Other 12-26-2021 11:00-0400 Respiratory rate 16 /min Griselda Kuns Other [employer] Other 12-26-2021 11:00-0400 SaO2% (BldA) [Mass fraction] 96 % Griselda Kuns Other [employer] Other 12-26-2021 11:00-0400 Systolic blood pressure 166 mm[Hg] Griselda Kuns Other [employer] Other 12-05-2021 10:15-0400 Body height 172.72 cm Griselda Kuns Other [employer] Other 12-05-2021 10:15-0400 Body mass index (BMI) [Ratio] 269.71 kg/m2 Griselda Kuns Other [employer] Other 12-05-2021 10:15-0400 Body weight 804.69 kg Griselda Kuns Other [employer] Other 12-05-2021 10:15-0400 Diastolic blood pressure 72 mm[Hg] Griselda Kuns Other [employer] Other 12-05-2021 10:15-0400 Respiratory rate 18 /min Griselda Kuns Other [employer] Other 12-05-2021 10:15-0400 SaO2% (BldA) [Mass fraction] 99 % Griselda Kuns Other [employer] Other 12-05-2021 10:15-0400 Systolic blood pressure 130 mm[Hg] Griselda Kuns Other [employer] Other 11-08-2021 11:15-0400 Body height 172.72 cm Griselda Kuns Other [employer] Other 11-08-2021 11:15-0400 Body mass index (BMI) [Ratio] 27.06 kg/m2 Griselda Kuns Other [employer] Other 11-08-2021 11:15-0400 Body weight 80.74 kg Griselda Kuns Other [employer] Other 11-08-2021 11:15-0400 Diastolic blood pressure 80 mm[Hg] Griselda Kuns Other [employer] Other 11-08-2021 11:15-0400 Respiratory rate 16 /min Griselda Kuns Other [facility] [employer] Other 11-08-2021 11:15-0400 SaO2% (BldA) [Mass fraction] 97 % Griselda Krause Other [facility] [employer] Other 11-08-2021 11:15-0400 Systolic blood pressure 128 mm[Hg] Griselda Krause Other [facility] [employer] Other 11-03-2021 09:38-0400 Body height 170.51 cm Griselda Krause Work Phone: [facility] Work Phone: 11-03-2021 09:38-0400 Body mass index (BMI) [Ratio] 27.05 kg/m2 Griselda Krause Work Phone: [facility] Work Phone: 11-03-2021 09:38-0400 Body surface area Derived from formula 1.91 m2 Griselda Krause Work Phone: [facility] Work Phone: 11-03-2021 09:38-0400 Body temperature 98.2 [degF] Griselda Krause Work Phone: [facility] Work Phone: 11-03-2021 09:38-0400 Body weight 78.65 kg Griselda Krause Work Phone: [facility] Work Phone: 11-03-2021 09:38-0400 Diastolic blood pressure 67 mm[Hg] Griselda Krause Work Phone: [facility] Work Phone: 11-03-2021 09:38-0400 Heart rate 63 /min Griselda Krause Work Phone: [facility] Work Phone: 11-03-2021 09:38-0400 Respiratory rate 16 /min Griselda R Andreas Work Phone: [facility] Work Phone: 11-03-2021 09:38-0400 SaO2% (BldA) [Mass fraction] 99 % Griselda R Andreas Work Phone: [facility] Work Phone: 11-03-2021 09:38-0400 Systolic blood pressure 147 mm[Hg] Griselda R Andreas Work Phone: [facility] Work Phone: 11-03-2021 09:38-0400 7 1 Griselda R Andreas Work Phone: [facility] Work Phone: Comment on above: [employer] 11-01-2021 13:30-0400 Body height 172.72 cm Griselda Krause Other [employer] Other 11-01-2021 13:30-0400 Body mass index (BMI) [Ratio] 26.61 kg/m2 Griselda Krause Other [employer] Other 11-01-2021 13:30-0400 Body weight 79.38 kg Griseldakeith Krause Other [employer] Other 11-01-2021 13:30-0400 Diastolic blood pressure 78 mm[Hg] Griselda Mendezs Other [employer] Other 11-01-2021 13:30-0400 Respiratory rate 18 /min Griselda Mendezs Other [employer] Other 11-01-2021 13:30-0400 SaO2% (BldA) [Mass fraction] 99 % Griselda Krause Other [employer] Other 11-01-2021 13:30-0400 Systolic blood pressure 140 mm[Hg] Griselda Krause Other [employer] Other 10-24-2021 09:45-0400 Body height 172.72 cm Sheng Alatorregideon Other [employer] Other 10-24-2021 09:45-0400 Body mass index (BMI) [Ratio] 26.76 kg/m2 Sheng Alatorregideon Other [employer] Other 10-24-2021 09:45-0400 Body weight 79.83 kg Shengsurekha Alatorregideon Other [employer] Other 10-13-2021 09:50-0400 Body height 172 cm Memo Cole MD Work Phone: [facility] 10-13-2021 09:50-0400 Body temperature 97.5 [degF] Memo Cole MD Work Phone: [facility] 10-13-2021 09:50-0400 Body weight 81.28 kg Memo Cole MD Work Phone: [facility] 10-13-2021 09:50-0400 Diastolic blood pressure 77 mm[Hg] Memo Cole MD Work Phone: [facility] 10-13-2021 09:50-0400 Heart rate 70 /min Memo Cole MD Work Phone: [facility] 10-13-2021 09:50-0400 Respiratory rate 16 /min Memo Cole MD Work Phone: [facility] 10-13-2021 09:50-0400 SaO2% (BldA) [Mass fraction] 99 % Memo Cole MD Work Phone: [facility] 10-13-2021 09:50-0400 Systolic blood pressure 152 mm[Hg] Memo Cole MD Work Phone: [facility] 09-19-2021 10:45-0400 Body height 172.72 cm Griselda Kuns Other [employer] Other 09-19-2021 10:45-0400 Body mass index (BMI) [Ratio] 26.15 kg/m2 Griselda Kuns Other [employer] Other 09-19-2021 10:45-0400 Body weight 78.02 kg Griselda Kuns Other [employer] Other 09-19-2021 10:45-0400 Diastolic blood pressure 80 mm[Hg] Griselda Kuns Other [employer] Other 09-19-2021 10:45-0400 Respiratory rate 18 /min Griselda Kuns Other [employer] Other 09-19-2021 10:45-0400 SaO2% (BldA) [Mass fraction] 99 % Griselda Kuns Other [employer] Other 09-19-2021 10:45-0400 Systolic blood pressure 140 mm[Hg] Griselda Kuns Other [employer] Other 06-30-2021 13:30-0500 Body height 172.72 cm Griselda Kuns Other [employer] Other 04-14-2021 08:45-0400 Body height 172.72 cm Griseldakeith Mendezs Other [employer] Other 04-14-2021 08:45-0400 Body mass index (BMI) [Ratio] 25.85 kg/m2 Griselda Kuns Other [employer] Other 04-14-2021 08:45-0400 Body weight 77.11 kg Griselda Kuns Other [employer] Other 04-14-2021 08:45-0400 Diastolic blood pressure 80 mm[Hg] Griselda Kuns Other [employer] Other 04-14-2021 08:45-0400 Respiratory rate 16 /min Griselda Kuns Other [employer] Other 04-14-2021 08:45-0400 SaO2% (BldA) [Mass fraction] 99 % Griselda Kuns Other [employer] Other 04-14-2021 08:45-0400 Systolic blood pressure 124 mm[Hg] Griselda Kuns Other [employer] Other Encounters Encounter Date Encounter Type Care Provider Facility Start: 03-19-2024 End: 03-19-2024 ambulatory GRISELDA KRAUSE [facility] Start: 03-13-2024 ambulatory [facility] Start: 02-13-2024 End: 02-13-2024 ambulatory [facility] Start: 02-13-2024 End: 02-13-2024 ambulatory [facility] Start: 02-11-2024 End: 02-12-2024 ambulatory [facility] Start: 02-11-2024 End: 02-11-2024 ambulatory [facility] Start: 02-04-2024 End: 02-04-2024 ambulatory GRISELDA KRAUSE [facility] Start: 01-31-2024 End: 01-31-[address] [facility] Work Phone: Start: 01-31-2024 End: 01-31-2024 Patient encounter procedure [facility] Physician [facility] [place] Work Phone: Start: 01-16-2024 End: 01-16-2024 ambulatory ELVI CADENA Not Available Start: 01-03-2024 End: 01-03-[address] [facility] Start: 01-02-2024 End: 01-02-2024 ambulatory LANDY ROSS Not Available Start: 12-17-2023 End: 12-17-2023 ambulatory Sarina Ramsey MD Facility:[facility] Start: 12-13-2023 End: 12-13-2023 ambulatory IGNACIA JACK [facility] Start: 12-13-2023 End: 12-13-2023 ambulatory SHIMON Medina [facility] Start: 12-12-2023 End: 12-12-2023 ambulatory SOLOMON Soni [facility] Ambulatory Start: 12-11-2023 End: 12-11-2023 ambulatory ELVI CADENA Not Available Start: 12-03-2023 End: 12-03-2023 ambulatory DO Griselda Krause Work Phone: [facility] Work Phone: Start: 12-03-2023 End: 12-03-2023 Patient encounter procedure DO Griselda Krause Work Phone: [facility] [place] Work Phone: Start: 11-28-2023 End: 11-28-2023 ambulatory KARIME YANEZ Not Available Start: 11-02-2023 End: 11-02-2023 ambulatory MEMO ESTRADAAR Facility:[facility] Start: 11-02-2023 End: 11-02-2023 Office outpatient visit 25 minutes Memo Cole MD Work Phone: Hematology/Oncology Comment on above: 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] Start: 10-24-2023 End: 10-24-2023 ambulatory NIKOLE THOMASON Not Available Start: 10-22-2023 End: 10-22-2023 ambulatory Sarina Ramsey MD Facility:[facility] Start: 10-18-2023 End: 10-18-2023 Patient encounter procedure DO Griselda Kuns Work Phone: [facility] Physician [facility] Work Phone: Start: 10-16-2023 End: 10-16-2023 ambulatory ELVI CADENA Not Available Start: 10-09-2023 End: 10-09-2023 ambulatory Griselda Kuns Facility:[facility] Start: 10-09-2023 End: 10-09-2023 ambulatory DO Griselda Kuns Work Phone: [facility] Work Phone: Start: 10-09-2023 End: 10-09-2023 Patient encounter procedure DO Griselda Kuns Work Phone: [facility]-XRay [facility] [place] Work Phone: Start: 10-05-2023 End: 10-05-2023 Office outpatient new 60 minutes Ignacia Jack MD Work Phone: [facility] Comment on above: Brainstem lesion (Pr imary Dx); Pontine glioma (Multi) Start: 10-05-2023 End: 10-05-2023 ambulatory IGNACIA JACK [facility] Start: 10-04-2023 End: 10-04-2023 ambulatory JOSE MARRUFO Not Available Start: 10-01-2023 End: 10-01-2023 ambulatory Sarina Ramsey MD Facility:[facility] Start: 09-19-2023 End: 09-19-2023 Subsequent hospital visit by physician Rad External Film EF RAD [employer]TERNAL [employer] Comment on above: Arrived Start: 09-19-2023 End: 09-19-2023 ambulatory LIBBY GROSS [facility] Start: 09-10-2023 End: 09-10-2023 ambulatory JEREMY DISLA Not Available Start: 09-05-2023 End: 09-05-2023 Patient encounter procedure DO Griselda Kuns Work Phone: [facility] Card[facility] Work Phone: Start: 09-05-2023 End: 09-05-2023 ambulatory DO Griselda Kuns Work Phone: [facility] Work Phone: Start: 09-05-2023 End: 09-05-2023 ambulatory DO Griselda Kuns Work Phone: [facility] Work Phone: Start: 09-05-2023 End: 09-05-2023 Patient encounter procedure DO Griselda Kuns Work Phone: [facility] Work Phone: Start: 09-03-2023 End: 09-03-2023 ambulatory Sarina Ramsey MD Facility: [place] Start: 08-30-2023 End: 08-30-2023 ambulatory NIKOLE THOMASON Not Available Start: 08-15-2023 End: 08-15-2023 Patient encounter procedure DO Griselda Kuns Work Phone: [facility] [place] Work Phone: Start: 08-14-2023 End: 08-14-2023 ambulatory NIKOLE THOMASON Not Available Start: 08-06-2023 End: 08-06-2023 ambulatory Sarina Ramsey MD Facility:[facility] Start: 08-02-2023 End: 08-02-2023 ambulatory DO Griselda Kuns Work Phone: [facility] Work Phone: Start: 08-02-2023 End: 08-02-2023 Patient encounter procedure DO Griselda Kuns Work Phone: [facility] [place] Work Phone: Start: 07-26-2023 Chart abstracting Nikole Thomason [employer]PER[employer] Work Phone: [facility] NEURO [address] Start: 07-26-2023 End: 07-26-2023 ambulatory NIKOLE THOMASON Not Available Start: 07-19-2023 Bamboo flowsheet Nikole Thomason [employer] SUPERINTENDENT Work Phone: [facility] Start: 07-19-2023 Bamboo flowsheet Nikole Thomason [employer] SUPERINTENDENT Work Phone: [facility] Start: 07-19-2023 End: 07-19-2023 ambulatory NIKOLE THOMASON Not Available Start: 07-18-2023 End: 07-21-2023 ambulatory ADDIS KHAN [facility] Start: 07-03-2023 End: 07-03-2023 ambulatory NIKOLE M DARLYNRIOSKyle Not Available Start: 07-02-2023 End: 07-02-2023 ambulatory Griselda Kuns Other [employer] Other Start: 07-02-2023 Office outpatient vi sit 25 minutes Griselda Kuns [facility] [place] Start: 07-02-2023 End: 07-02-2023 Patient encounter procedure DO Griselda Kuns Work Phone: [facility] [place] Work Phone: Start: 06-07-2023 End: 06-07-2023 ambulatory NIKOLE M DARLYNCAROLYN Not Available Start: 05-31-2023 End: 05-31-2023 ambulatory Griselda Kuns Other [employer] Other Start: 05-31-2023 Office outpatient vi sit 25 minutes Griselda Kuns [facility] [place] Start: 05-30-2023 Office outpatient vi sit 15 minutes Ruddy Harvey [facility] Vascular Surgery Start: 05-30-2023 End: 05-30-2023 ambulatory DO Griselda Kuns Work Phone: [email or web address] Other Start: 05-30-2023 End: 05-31-2023 Patient encounter procedure DO Griselda Kuns Work Phone: [facility]-Ultrasound [facility] Vascular Start: 05-30-2023 End: 05-30-2023 Patient encounter procedure DO Griselda Kuns Work Phone: [facility] Vascular Surgery Work Phone: Start: 05-15-2023 End: 05-15-2023 ambulatory Lilliam Cason Other [email or web address] Other Start: 05-15-2023 Office outpatient vi sit 25 minutes Lilliam Cason [facility] Start: 05-15-2023 Telephone encounter Lilliam CHENG [employer] Start: 05-15-2023 End: 05-15-2023 Patient encounter procedure DO Griselda Kuns Work Phone: [facility] Work Phone: Start: 05-14-2023 End: 05-14-2023 ambulatory Sarina Ramsey MD Facility:[facility] Start: 05-07-2023 End: 05-07-2023 ambulatory Griselda Kuns Facility:[facility] Start: 05-07-2023 End: 05-07-2023 Admission to same day surgery center DO Griselda Kuns Work Phone: [facility]-Interventional Radiology Work Phone: Start: 05-07-2023 End: 05-07-2023 ambulatory DO Griselda Kuns Work Phone: [facility] Work Phone: Start: 05-04-2023 End: 05-04-2023 ambulatory Nikole Thomason Facility:[facility] Start: 05-04-2023 End: 05-04-2023 ambulatory DO Griselda Kuns Work Phone: [facility] Work Phone: Start: 05-04-2023 End: 05-04-2023 Patient encounter procedure DO Griselda Kuns Work Phone: [facility]-CT Scan [facility] [place] Work Phone: Start: 05-03-2023 End: 05-03-2023 ambulatory Ruddy Harvey Other [email or web address] Other Start: 05-03-2023 Office outpatient ne w 45 minutes Ruddy Harvey [facility] Start: 05-03-2023 Telephone encounter Ruddy craft [facility] [employer] Start: 05-01-2023 End: 05-01-2023 ambulatory Griselda Kuns Other [employer] Other Start: 05-01-2023 Office outpatient vi sit 25 minutes Griselda Kuns [facility] [place] Start: 04-25-2023 End: 04-25-2023 ambulatory Lilliam Kamla Facility:[facility] Start: 04-25-2023 End: 04-25-2023 ambulatory DO Griselda Kuns Work Phone: [facility] Work Phone: Start: 04-25-2023 End: 04-25-2023 Patient encounter procedure DO Griselda Kuns Work Phone: [facility]-Ultrasound [place] Work Phone: Start: 04-16-2023 End: 04-16-2023 ambulatory Sarina Ramsey MD Facility: [facility] Start: 04-12-2023 End: 04-12-2023 ambulatory Lilliam Kamla Other [email or web address] Other Start: 04-12-2023 Telephone encounter Lilliam Cason [facility] Start: 04-11-2023 End: 04-11-2023 ambulatory Lilliam Kamla Other [email or web address] Other Start: 04-11-2023 Office outpatient ne w 45 minutes Lilliam Kamla [facility] Start: 04-10-2023 End: 04-10-2023 ambulatory Griselda Kuns Other [employer] Other Start: 04-10-2023 Telephone encounter Griselda Kuns [facility] [place] Start: 03-30-2023 End: 03-30-2023 ambulatory Griselda Kuns Facility:[facility] Start: 03-30-2023 End: 03-30-2023 ambulatory DO Griselda Kuns Work Phone: [facility] Work Phone: Start: 03-30-2023 End: 03-30-2023 Patient encounter procedure DO Griselda Kuns Work Phone: [facility]-Lab [place] Work Phone: Start: 03-21-2023 End: 03-21-2023 Emergency department patient visit Griseldakeith Krause Facility:[facility] Start: 03-21-2023 End: 03-21-2023 Emergency department patient visit DO Griselda Kuns Work Phone: [facility]Emergency [facility] Work Phone: Start: 03-15-2023 End: 03-15-2023 ambulatory Griseldakeith Mendezs Other [email or web address] Other Start: 03-15-2023 Office outpatient vi sit 25 minutes Griselda Kuns [facility] [place] Start: 03-08-2023 End: 03-08-2023 ambulatory Griselda Kuns Other [email or web address] Other Start: 03-08-2023 Office outpatient vi sit 25 minutes Griselda Kuns [facility] [place] Start: 02-26-2023 End: 02-26-2023 Emergency department patient visit Daniel Gaytan Facility:[facility] Start: 02-26-2023 End: 02-26-2023 Emergency department patient visit DO Griseldakeith Krause Work Phone: [facility]-Emergency Room Work Phone: Start: 12-28-[address] BRET Lawrence ity:UNKNOWN Start: 12-05-2022 End: 12-05-2022 ambulatory Griselda Kuns Other [email or web address] Other Start: 12-05-2022 Office outpatient vi sit 25 minutes Griselda Kuns [facility] [place] Start: 11-15-2022 End: 11-15-2022 ambulatory Lima Ida Facility:[facility] Start: 11-15-2022 End: 11-15-2022 ambulatory DO Griseldakeith Krause Work Phone: [facility] Work Phone: Start: 11-15-2022 End: 11-15-2022 Patient encounter procedure DO Griseldakeith Krause Work Phone: [facility] [address] Work Phone: Start: 10-27-2022 End: 10-27-2022 Subsequent hospital visit by physician Arrival Time Radiology Work Phone: Radiology [facility] Comment on above: Malignant neoplasm o f head, 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] Start: 10-24-2022 End: 10-24-2022 ambulatory Griselda Krause Facility:[facility] Start: 10-24-2022 End: 10-24-2022 ambulatory DO Griselda Andreas Work Phone: [facility] Work Phone: Start: 10-24-2022 End: 10-24-2022 Patient encounter procedure DO Griselda Krause Work Phone: [facility] [place] Work Phone: Start: 09-28-2022 End: 09-28-2022 ambulatory DEMOND CAT Facility:[facility] Start: 09-22-2022 End: 09-22-2022 Subsequent hospital visit by physician Jonelle Hernandez (I-Stat/3t) Work Phone: Radiology Comment on above: 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] Start: 09-18-2022 Telephone encounter Kelly ghosh PA-C Work Phone: [facility] Comment on above: Patient Question Start: 09-13-2022 End: 09-13-2022 Patient encounter procedure Kelly Perez PA-C Work Phone: [facility] Comment on above: NPH (normal pressure hydrocephalus) (HCC) (Primary Dx) Start: 08-31-2022 End: 08-31-2022 ambulatory Griselda Kuns Other [email or web address] Other Start: 08-31-2022 Office outpatient vi sit 25 minutes Griselda Kuns [facility] Start: 08-01-2022 End: 08-01-2022 ambulatory Griselda Kuns Other [email or web address] Other Start: 08-01-2022 Office outpatient vi sit 25 minutes Griselda Kuns [facility] Start: 07-17-2022 End: 07-17-2022 ambulatory DO Griselda Kuns Work Phone: [facility] Work Phone: Start: 07-17-2022 End: 07-17-2022 Patient encounter procedure DO Griselda Kuns Work Phone: [facility]-XRay [address] [place] Work Phone: Start: 07-14-2022 End: 07-14-2022 Patient encounter procedure DO Griselda Kuns Work Phone: [facility]-CT Scan [address] [place] Work Phone: Start: 06-28-2022 End: 06-28-2022 ambulatory Trish Blades Other [email or web address] Other Start: 06-28-2022 Office outpatient ne w 45 minutes Trish Blades [facility] Neuro[facility] Start: 05-26-2022 End: 05-26-2022 ambulatory Griselda Kuns Other [email or web address] Other Start: 05-26-2022 Office outpatient vi sit 25 minutes Griselda Kuns [facility] Start: 05-17-2022 End: 05-17-2022 ambulatory DO Griselda Kuns Work Phone: [facility] Work Phone: Start: 05-17-2022 End: 05-17-2022 Discharged Recurring DO Griselda Kuns Work Phone: [facility]-Physical Therapy [address] Start: 04-27-2022 Registered Recurring DO Griselda Kuns Work Phone: [facility]-Physical Therapy [address] Start: 04-16-2022 End: 04-17-2022 Emergency department patient visit DO Griselda Kuns Work Phone: [facility]-Emergency Room Start: 04-10-2022 End: 04-10-2022 ambulatory Griselda Kuns Other [email or web address] Other Start: 04-10-2022 Telephone encounter Griselda Andreas [facility] Start: 04-06-2022 End: 04-06-2022 Emergency department patient visit DO Griselda Kuns Work Phone: [facility]-Emergency Room Start: 03-27-2022 Telephone encounter Asya Reynolds RN Hematology/Oncology Comment on above: Appointment Start: 03-22-2022 End: 03-22-2022 ambulatory Griselda Kuns [facility] [email or web address] Other Start: 03-22-2022 Telephone encounter Griselda Andreas [facility] Start: 03-16-2022 End: 03-16-2022 ambulatory Griselda Kuns Other [email or web address] Other Start: 03-16-2022 Office outpatient vi sit 25 minutes Griselda Kuns [facility] Start: 03-16-2022 Telephone encounter Pat[facility] Comment on above: Triage (Internal Ref erral--old) Start: 03-09-2022 End: 03-09-2022 ambulatory Griselda Kuns [facility] [email or web address] Other Start: 03-09-2022 Telephone encounter Griselda Kuns [facility] Start: 03-07-2022 End: 03-07-2022 ambulatory Griselda Kuns Other [email or web address] Other Start: 03-07-2022 Telephone encounter Griselda Kuns [facility] Start: 03-03-2022 Telephone encounter Griselda Kuns [facility] Start: 03-03-2022 End: 03-03-2022 ambulatory DO Griselda Kuns Work Phone: [email or web address] Other Start: 03-03-2022 End: 03-03-2022 Discharged Recurring DO Griselda Kuns Work Phone: [facility]-Physical Therapy [address] Start: 03-03-2022 Registered Recurring DO Griselda Kuns Work Phone: [facility]-Physical Therapy [address] Start: 02-07-2022 End: 02-07-2022 ambulatory Griselda Kuns Other [email or web address] Other Start: 02-07-2022 Telephone encounter Griselda Kuns [facility] Start: 01-30-2022 End: 01-30-2022 ambulatory Griselda Kuns Other [email or web address] Other Start: 01-30-2022 Office outpatient vi sit 25 minutes Griselda Kuns [facility] Start: 01-12-2022 End: 01-12-2022 ambulatory Griselda Kuns Other [email or web address] Other Start: 01-12-2022 Telephone encounter Griselda Kuns [facility] Start: 12-26-2021 End: 12-26-2021 ambulatory Griselda Kuns Other [email or web address] Other Start: 12-26-2021 Office outpatient vi sit 25 minutes Griselda Kuns [facility] Start: 12-23-2021 End: 12-23-2021 ambulatory Griselda Kuns Other [email or web address] Other Start: 12-23-2021 Telephone encounter Griselda Kuns [facility] Start: 12-05-2021 End: 12-05-2021 ambulatory Griselda Kuns Other [email or web address] Other Start: 12-05-2021 Office outpatient vi sit 25 minutes Griselda Kuns [facility] Start: 12-05-2021 Telephone encounter Griselda Kuns [facility] Start: 11-22-2021 End: 11-22-2021 ambulatory Griselda Kuns [facility] [email or web address] Other Start: 11-22-2021 Telephone encounter Griselda Kuns [facility] Start: 11-21-2021 Office outpatient vi sit 15 minutes Griselda R Kuns Work Phone: [facility] Work Phone: Start: 11-09-2021 End: 11-09-2021 ambulatory Griselda Kuns Other [email or web address] Other Start: 11-09-2021 Telephone encounter Griselda Kuns [facility] Start: 11-08-2021 End: 11-08-2021 ambulatory Griselda Kuns [facility] [email or web address] Other Start: 11-08-2021 Office outpatient vi sit 25 minutes Griselda Kuns [facility] Start: 11-03-2021 Office consultation new/estab patient 60 min Griselda R Kuns Work Phone: [facility] Work Phone: Start: 11-01-2021 End: 11-01-2021 ambulatory Griselda Kuns Other [facility] Other Start: 11-01-2021 Office outpatient vi sit 25 minutes Griselda Krause [facility] [place] Start: 10-31-2021 End: 10-31-2021 ambulatory Sheng Schneider Other [facility] [employer] Other Start: 10-31-2021 Telephone encounter Sheng Clark [facility] Neurosurgery Start: 10-27-2021 End: 10-27-2021 ambulatory Memo Cole MD Work Phone: Hematology/Oncology Comment on above: 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); Lung nodules; Malignant neoplasm of head, face and neck (HCC) Start: 10-27-2021 End: 10-27-2021 Telemedicine consultation with patient Memo Cole MD Work Phone: [employer] Start: 10-24-2021 End: 10-24-2021 ambulatory Sheng Schneider Other [facility] [employer] Other Start: 10-24-2021 Office outpatient ne w 30 minutes Sheng Schneider [facility] Neurosurgery Start: 10-13-2021 Telephone encounter Memo kapoor MD Work Phone: Cancer 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) Start: 10-13-2021 End: 10-13-2021 Patient encounter procedure Memo Cole MD Work Phone: [facility] Start: 10-06-2021 End: 10-06-2021 ambulatory Griselda Krause Other [facility] Other Start: 10-06-2021 Telephone encounter Asya Kumar RN Hematology/Oncology Comment on above: Results Start: 10-06-2021 End: 10-06-2021 Subsequent hospital visit by physician Arrival Time Radiology Work Phone: Radiology [facility] Comment on above: Malignant neoplasm o f head, 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] Start: 09-29-2021 End: 09-29-2021 ambulatory Griselda Kuns Other [email or web address] Other Start: 09-29-2021 Telephone encounter Griselda Kuns [facility] Start: 09-27-2021 End: 09-27-2021 ambulatory Griselda Kuns Other [email or web address] Other Start: 09-27-2021 Telephone encounter Griselda Kuns [facility] Start: 09-19-2021 End: 09-19-2021 ambulatory Griselda Kuns Other [email or web address] Other Start: 09-19-2021 Office outpatient vi sit 25 minutes Griselda Kuns [facility] Start: 09-12-2021 End: 09-12-2021 ambulatory Griselda Kuns Other [email or web address] Other Start: 09-12-2021 Telephone encounter Griselda Kuns [facility] Start: 09-08-2021 End: 09-08-2021 ambulatory Griselda Kuns Other [email or web address] Other Start: 09-08-2021 Telephone encounter Griselda Kuns [facility] Start: 06-30-2021 End: 06-30-2021 ambulatory Griselda Kuns Other [email or web address] Other Start: 06-30-2021 Office outpatient vi sit 15 minutes Griselda Kuns [facility] Start: 06-30-2021 Telephone encounter Griselda Kuns [facility] Start: 06-29-2021 End: 06-29-2021 ambulatory Griselda Krause Other [email or web address] Other Start: 06-29-2021 Nursing evaluation o f patient and report Griselda Krause [facility] Start: 04-19-2021 End: 04-19-2021 ambulatory Griselda Krause Other [email or web address] Other Start: 04-19-2021 Nursing evaluation o f patient and report Griselda Krause [facility] Start: 04-19-2021 Telephone encounter Griselda Krause [facility] Start: 04-14-2021 Office outpatient vi sit 15 minutes Griselda Krause [facility] Start: 10-01-2020 End: 10-01-2020 Patient encounter procedure Griselda Krause Work Phone: -Electrodiagnostics Start: 09-20-2020 End: 09-20-2020 Patient encounter procedure Griselda Krause -Lab [facility] Start: 09-13-2020 End: 09-13-2020 Patient encounter procedure Griselda Krause -XRay [facility] Procedures Date Procedure Procedure Detail Performing Clinician Start: 10-26-2023 Ct soft tissue neck w/contrast material Memo Cole MD Work Phone: Start: 10-26-2023 Ct thorax w/contrast material Memo kapoor MD Work Phone: Start: 10-26-2023 Blood count complete auto&auto difrntl wbc Memo Cole MD Work Phone: Start: 10-09-2023 Respiratory Panel (PCR) DO Griselda Krause Work Phone: Start: 10-09-2023 Plain chest X-ray [...] xray DO Griselda Krause Work Phone: Start: 10-27-2022 Ct thorax w/contrast [...] assessment Memo Cole MD Work Phone: Start: 10-06-2021 Ct soft tissue neck w/contrast material Memo Cole MD Work Phone: Start: 10-06-2021 Ct thorax w/contrast material Memo kapoor MD Work Phone: Start: 10-06-2021 Blood count complete auto&auto difrntl wbc Memo Cole MD Work Phone: Start: 10-14-2020 Adult depression screening assessment Asya Kumar RN Start: 09-13-2020 Plain chest X-ray Griselda Krause Excision of melanoma Griselda Krause Work Phone: Plan of Treatment Date Care Activity Detail Author Start: 2037 RSV Vaccine (1 - 1-dose 75+ series) RSV Vaccine (1 - 1-dose 75+ series) [facility] Start: 10-25-2026 Diabetes Screening Diabetes Screening [facility] Start: 11-07-2024 End: 11-07-2024 Follow-up encounter 11/07/2024 9:30 AM EDT Visit (SP) Office Hematology/Oncology [address] [place] [address] [place] [address] Memo Cole MD [address] [place] [address] [place] [address] [address] and lab Hematology/Oncolog y Comment on above: [address] and lab Start: 11-03-2024 End: 11-03-2024 Patient encounter procedure 11/03/2024 9:00 AM EDT Appointment Radiology [facility] [address] [place] [address] Ct Chest and neck with contrast and lab [facility]iology [facility] CT Comment on above: Ct Chest and neck with contrast and lab Start: 11-01-2024 End: 11-01-2024 CBC W Auto Differential panel - Blood COMPLETE BLOOD COUNT AND DIFFERENTIAL Lab Routine 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) Expected: 11/01/2024 (Approximate), Expires: 11/01/2024 [facility] Comment on above: Expected: 11/01/2024 (Approximate), Expi res: 11/01/2024 Start: 11-01-2024 End: 11-01-2024 Comprehensive metabolic 2000 panel - Serum or Plasma COMPREHENSIVE METABOLIC PANEL Lab Routine 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) Expected: 11/01/2024 (Approximate), Expires: 11/01/2024 [facility] Comment on above: Expected: 11/01/2024 (Approximate), Expi res: 11/01/2024 Start: 11-01-2024 End: 12-01-2024 CT Chest W contrast IV CT CHEST W IVCON Radiology Routine 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) Expected: 11/01/2024 (Approximate), Expires: 12/01/2024 [facility] Comment on above: Expected: 11/01/2024 (Approximate), Expi res: 12/01/2024 Start: 11-01-2024 End: 12-01-2024 CT Neck W contrast IV CT NECK SOFT TISSUE W IVCON Radiology Routine 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) Expected: 11/01/2024 (Approximate), Expires: 12/01/2024 [facility] Work Phone: Comment on above: Expected: 11/01/2024 (Approximate), Expi res: 12/01/2024 Start: 10-06-2024 DIABETES SCREEN DIABETES SCREEN [facility] Start: 03-15-2024 DTaP/Tdap/Td Vaccines (2 - Td or Tdap) DTaP/Tdap/Td Vaccines (2 - Td or Tdap) [facility] Start: 03-15-2024 Urine microalbumin profile DTaP,Tdap,Td Vaccine (2 - Td or Tdap) [facility] Start: 03-03-2024 Influenza vaccination Influenza Vaccine (#1) [facility] Comment on above: Postponed from 02/16/2023 (Patient Refus ed) Start: 02-17-2024 Covid-19 Vaccine () Covid-19 Vaccine () [facility] Start: 02-17-2024 Covid-19 Vaccine ( season) Covid-19 Vaccine () [facility] Start: 02-17-2024 Influenza vaccination [facility] Start: 09-28-2023 End: 09-28-2023 Patient encounter procedure 09/28/2023 10:15 AM EDT Office Visit [facility] [address] [place] [address] [place] [address] [facility] Department [place] [address] [facility] Start: 09-05-2023 Ankle brachial pressure index [facility] Start: 08-30-2023 End: 08-30-2023 Patient encounter procedure 08/30/2023 9:40 AM EDT Office Visit [facility] [address] [phone] Nikole Thomason NP [address] [place] [address] [facility] Start: 07-26-2023 End: 07-26-2023 Patient encounter procedure 07/26/2023 1:30 PM EST Procedure Visit [facility] [address] [place] [phone] Nikole Thomason NP [address] [place] [address] [facility] 210 Start: 07-19-2023 End: 07-19-2023 Clinical Support 07/19/2023 1:30 PM EST Clinical Support [facility] [address] [place] [phone] Nikole Thomason [employer] [address] [place] [address] Cervical dystonia [facility] Comment on above: Cervical dystonia Start: 06-18-2023 Behavioral Health Screening Behavioral Health Screening [facility] Start: 05-07-2023 Pulse volume recorder pneumoplethysmography US arterial pvr rest [facility] Start: 05-07-2023 [facility] Start: 05-07-2023 [facility] Start: 04-25-2023 Pulse volume recorder pneumoplethysmography US arterial pvr rest [facility] Start: 02-16-2023 COVID-19 Vaccine ( season) COVID-19 Vaccine () [facility] Start: 02-16-2023 Influenza vaccination INFLUENZA (Season Ended) [facility] Start: 2022 RSV patients and/or patients aged 60+ years (1 - 1-dose 60+ series) RSV patients and/or patients aged 60+ years (1 - 1-dose 60+ series) [facility] Start: 2022 RSV Vaccine (1 - 1-dose 60+ series) RSV Vaccine (1 - 1-dose 60+ series) [facility] Start: 10-30-2022 End: 10-30-2022 CBC W Auto Differential panel - Blood CBC + DIFF Lab Routine 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) Lung nodules Malignant neoplasm of head, face and neck (HCC) Expected: 10/30/2022 (Approximate), Expires: 10/30/2022 [facility] Work Phone: Comment on above: Expected: 10/30/2022 (Approximate), Expi res: 10/30/2022 Start: 10-30-2022 End: 10-30-2022 Comprehensive metabolic 2000 panel - Serum or Plasma COMP METABOLIC PANEL Lab Routine 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) Lung nodules Malignant neoplasm of head, face and neck (HCC) Expected: 10/30/2022 (Approximate), Expires: 10/30/2022 [facility] Work Phone: Comment on above: Expected: 10/30/2022 (Approximate), Expi res: 10/30/2022 Start: 10-30-2022 End: 11-29-2022 Ct soft tissue neck w/contrast material CT NECK SOFT TISSUE W IVCON Radiology Routine Malignant neoplasm of head, face and neck (HCC) Expected: 10/30/2022 (Approximate), Expires: 11/29/2022 [facility] Work Phone: Comment on above: Expected: 10/30/2022 (Approximate), Expi res: 11/29/2022 Start: 10-30-2022 End: 11-29-2022 Ct thorax w/contrast material CT CHEST W IVCON Radiology Routine Lung nodules Expected: 10/30/2022 (Approximate), Expires: 11/29/2022 [facility] Work Phone: Comment on above: Expected: 10/30/2022 (Approximate), Expi res: 11/29/2022 Start: 10-13-2022 Adult depression screening assessment DEPRESSION SCREENING [facility] Start: 07-17-2022 Aerobic Culture Aerobic Culture [facility] Start: 07-17-2022 Anaerobic Culture Anaerobic Culture [facility] Start: 07-17-2022 Microscopic observation [Identifier] in Unspecified specimen by Gram stain [facility] Start: 07-17-2022 Cerebrospinal fluid culture [facility] Start: 07-17-2022 End: 07-17-2022 [facility] Start: 07-17-2022 [facility] Start: 06-18-2022 DEPRESSION ASSESSMENT DEPRESSION ASSESSMENT [facility] Start: 04-16-2022 Plain chest X-ray XR ribs LT min 3V w [id number]* [facility] Start: 04-16-2022 XR Unspecified body region Views [facility] Start: 02-16-2022 Influenza vaccination [facility] Start: 10-14-2021 Adult depression screening assessment DEPRESSION SCREENING [facility] Start: 06-23-2021 COVID-19 VACCINE (3 - Booster for Pfizer series) COVID-19 VACCINE (3 - Booster for Pfizer series) [facility] Start: 06-18-2021 DEPRESSION ASSESSMENT DEPRESSION ASSESSMENT [facility] Start: 03-18-2021 COVID-19 VACCINE (3 - Booster for Pfizer series) COVID-19 VACCINE (3 - Booster for Pfizer series) [facility] Start: 2017 PROSTATE CANCER SCREENING DISCUSSION PROSTATE CANCER SCREENING DISCUSSION [facility] Start: 2017 Prostate specific antigen measurement Prostate Cancer Screening Discussion [facility] Start: 2012 SHINGRIX VACCINE (1 of 2) SHINGRIX VACCINE (1 of 2) [facility] Start: 2012 Zoster Vaccines (1 of 2) Zoster Vaccines (1 of 2) [facility] Start: 11-25-2007 COLOGUARD (FIT-DNA) COLOGUARD (FIT-DNA) [facility] Start: 11-25-2007 Colonoscopy COLONOSCOPY [facility] Start: 11-25-2007 COLORECTAL CANCER SCREENING COLORECTAL CANCER SCREENING [facility] Start: 11-25-[address] COLONOGRAPHY [facility] Start: 11-25-2007 FECAL OCCULT BLOOD FECAL OCCULT BLOOD [facility] Start: 11-25-2007 Screening for malignant neoplasm of colon [facility] Start: 11-25-2007 SIGMOIDOSCOPY SIGMOIDOSCOPY [facility] Start: 1997 Lipid panel Lipid Screening [facility] Start: 1997 LIPID SCREEN LIPID SCREEN [facility] Start: 1981 Urine microalbumin profile DTAP,TDAP,TD (1 - Tdap) [facility] Start: 1980 Anxiety Screening Anxiety Screening [facility] Start: 1980 Depression Screening Depression Screening [facility] Start: 1980 Diabetes mellitus screening Diabetes Screening [facility] Start: 1980 HEPATITIS C SCREENING HEPATITIS C SCREENING [facility] Start: 1980 Hepatitis C screening Hepatitis C Screening [facility] Start: 1980 HIV SCREENING HIV SCREENING [facility] Start: 1980 HIV screening HIV Screening [facility] Start: 1968 Pneumococcal Vaccine: Pediatrics (0 to 5 Years) and At-Risk Patients (6 to 64 Years) (1 of 2 - PCV) Pneumococcal Vaccine: Pediatrics (0 to 5 Years) and At-Risk Patients (6 to 64 Years) (1 of 2 - PCV) [facility] Start: 11-25-1963 MMR Vaccines (1 of 1 - Standard series) MMR Vaccines (1 of 1 - Standard series) [facility] Start: 1962 HIV screening HIV Screening [facility] Start: 1962 Lipid panel Lipid Panel [facility] Start: 1962 Screening for malignant neoplasm of colon [facility] Start: 1962 Yearly Adult Physical Yearly Adult Physical [facility] Ankle brachial pressure index [facility] Bacteria identified in Cerebral spinal fluid by Culture CSF CULT + STAIN Microbiology Routine NPH (normal pressure hydrocephalus) ([facility]) Ordered: 09/13/2022 [facility] Work Phone: Comment on above: Ordered: 09/13/2022 Bacteria identified in Unspecified specimen by Aerobe culture [facility] Bacteria identified in Unspecified specimen by Anaerobe culture [facility] Cell count panel - C erebral spinal fluid CSF CELL COUNT Lab Routine NPH (normal pressure hydrocephalus) ([facility]) Ordered: 09/13/2022 [facility] Work Phone: Comment on above: Ordered: 09/13/2022 Cell count, cerebros roberto fluid [facility] Enolase.neuron speci fic [Mass/volume] in Serum or Plasma by Immunoassay [facility] Fungus identified in Unspecified specimen by Culture [facility] Glucose [Mass/volume ] in Cerebral spinal fluid [facility] IR LP FOR DRAINAGE (PRESSURE) IR LP FOR DRAINAGE (PRESSURE) Radiology Routine NPH (normal pressure hydrocephalus) ([facility]) Ordered: 09/13/2022 [facility] Work Phone: Comment on above: Ordered: 09/13/2022 Meningitis+Encephali tis pathogens DNA and RNA panel - Cerebral spinal fluid by JER with non-probe detection [facility] End: 10-20-2023 Mri brain brain stem w/o w/contrast material MRI BRAIN WO/W IVCON Radiology Routine 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[facility]) 1 Occurrences starting 09/20/2022 until 10/20/2023 [facility] Work Phone: Comment on above: 1 Occurrences starting 09/20/2022 until 10/20/2023 Patient Education [facility] Work Phone: Patient referral [facility] Work Phone: Protein [Mass/volume ] in Cerebral spinal fluid [facility] Virus identified in Unspecified specimen by Culture [facility] Immunizations Immunization Date Immunization Notes Care Provider Carla marie 01-21-2021 COVID-19 Vaccine Pfi zer - Documentation Purposes Only Griselda Kuns Other [facility] 12-30-2020 COVID-19 Vaccine Pfi zer - Documentation Purposes Only Griselda Kuns Other [facility] 01-24-2016 KENALOG - 10 mg Griselda Kuns Other [email or web address] Other 01-27-2015 Toradol per 15 mg Griselda Kuns Other [email or web address] Other 03-15-2014 tetanus toxoid, redu julienne diphtheria toxoid, and acellular pertussis vaccine, adsorbed Griselda Kuns Other [email or web address] Other Payers Date Payer Category Payer Medicare [id number] 2022 Self-pay [id number] 2022 Private Health Insurance [id number] 2021 Private Health Insurance [facility] [employer] [id number] 2021-Present [phone] [address] [place] [address] PPO [id number] 2021 Private Health Insurance [id number] 2019 Medicaid [employer] [id number] 2019-Present [phone] [address] [place] [address] Medicaid [id number] 2019 Medicaid [id number] 2019 Unknown [id number] 2019 Unknown 2019 Unknown [id number] 1962 Unknown [id number] 1962 Unknown [id number] 2.16.840.1.231491.3.579.2. 182 1960 Unknown [id number] 2.16.840.1.393388.3.579.2. 182 1960 Unknown [id number] 2.16.840.1.632453.3.579.2. 196 1962 Unknown [id number] 2.16.840.1.376251.3.579.2. 196 1962 Unknown [id number] 2.16.840.1.307301.3.579.2. 196 1962 Unknown [id number] 2.16.840.1.510470.3.579.2. 196 1962 Unknown [id number] 2.16.840.1.765097.3.579.2. 196 1962 Unknown [id number] 2.16.840.1.551634.3.579.2. 196 1962 Unknown [id number] 2.16.840.1.525626.3.579.2. 196 1962 Unknown [id number] 2.16.840.1.472536.3.579.2. 1244 1962 Unknown [id number] 2.16.840.1.761491.3.579.2. 1244 1962 Unknown [id number] 2.16.840.1.900180.3.579.2. 1258 1962 Unknown [id number] 2.16.840.1.501196.3.579.2. 1258 1962 Unknown [id number] 2.16.840.1.990469.3.579.2. 1258 1962 Unknown [id number] 2.16.840.1.811288.3.579.2. 1258 1962 Unknown [id number] 2.16.840.1.487956.3.579.2. 1258 1962 Unknown [id number] 2.16.840.1.598525.3.579.2. 1258 1962 Unknown [id number] 2.16.840.1.392581.3.579.2. 1258 1962 Unknown [id number] 2.16.840.1.707439.3.579.2. 1258 1962 Unknown [id number] 2.16.840.1.425608.3.579.2. 1258 1962 Unknown [id number] 2.16.840.1.235173.3.579.2. 1258 1962 Unknown [id number] 2.16.840.1.609076.3.579.2. 1258 1962 Unknown [id number] 2.16.840.1.593694.3.579.2. 1258 1962 Unknown [id number] 2.16.840.1.608994.3.579.2. 1258 1962 Unknown [id number] 2.16.840.1.699318.3.579.2. 1258 1962 Unknown [id number] 2.16.840.1.136148.3.579.2. 1258 1962 Unknown [id number] 2.16.840.1.335016.3.579.2. 1259 1962 Unknown [id number] 2.16.840.1.639024.3.579.2. 1245 1962 Unknown [id number] 2.16.840.1.145266.3.579.2. 1245 1962 Unknown [id number] 2.16.840.1.908422.3.579.2. 1245 1962 Unknown [id number] 2.16.840.1.499050.3.579.2. 1244 1962 Unknown [id number] 2.16.840.1.510669.3.579.2. 1244 1962 Unknown [id number] 2.16.840.1.856391.3.579.2. 1244 1962 Unknown [id number] 2.16.840.1.246044.3.579.2. 1244 1962 Unknown [id number] 2.16.840.1.072225.3.579.2. 1244 1962 Unknown [id number] 2.16.840.1.372719.3.579.2. 1244 1962 Unknown [id number] 2.16.840.1.480447.3.579.2. 1244 1962 Unknown [id number] 2.16.840.1.880513.3.579.2. 1244 1962 Unknown [id number] 2.16.840.1.655669.3.579.2. 1244 1962 Unknown [id number] 2.16.840.1.912819.3.579.2. 1245 Private Health Insurance [id number] Unknown [id number] Unknown [id number] 2.16.840.1.538024.3.579.2. 531 Unknown [id number] 2.16.840.1.397858.3.579.2. 531 Unknown [id number] 2.16.840.1.524720.3.579.2. 531 Unknown [id number] 2.16.840.1.375593.3.579.2. 531 Unknown [id number] 2.16.840.1.477647.3.579.2. 531 Unknown [id number] 2.16.840.1.142804.3.579.2. 531 Unknown [id number] 2.16.840.1.051751.3.579.2. 531 Unknown [id number] 2.16.840.1.993143.3.579.2. 531 Unknown [id number] 2.16.840.1.364791.3.579.2. 531 Unknown [id number] 2.16.840.1.721213.3.579.2. 531 Unknown [id number] 2.16.840.1.113773.3.579.2. 531 Social History Date Type Detail Facility Start: 04-29-2018 End: 10-18-2023 Tobacco smoking status INIS Smoker (finding) [facility] Start: 1960 Sex Assigned At Male F [facility] Start: 10-16-2019 Tobacco smoking status INIS Ex-smoker [facility] History of tobacco use Cigarette Smoker [facility] Start: 10-16-2019 End: 05-25-2020 Cigarettes smoked current (pack per day) - Reported 1.5 [facility] Start: 10-16-2019 End: 10-05-2023 Tobacco use and exposure Smokeless tobacco non-user [facility] Start: 10-14-2020 End: 09-28-2022 Alcohol intake Ex-drinker (finding) [facility] Start: 01-20-2019 History SDOH Alcohol Comment quit 2002 [facility] Start: 10-16-2019 Tobacco Comment quit smoking 01/2019 [facility] Start: 1960 Sex Assigned At Not on file [facility] Start: 10-03-2021 End: 10-05-2023 Exposure to SARS-CoV-2 (event) Not sure [facility] Start: 05-25-2020 End: 07-03-2023 Sex Assigned At [facility] Start: 03-10-2022 End: 03-20-2022 Exposure to SARS-CoV-2 (event) Unable to assess [facility] Work Phone: Start: 12-28-2022 End: 10-05-2023 Daily Smoker [facility] Start: 03-13-2023 Tobacco Comment 6-10 cigarettes/day [facility] Start: 09-20-2022 Gender identity Identifies as male gender (finding) [facility] Start: 09-20-2022 Sexual orientation Heterosexual (fin ding) [facility] Tobacco smoking status NHIS Tobacco smoking consumption unknown [facility] Work Phone: Start: 10-05-2023 Alcoholic beverage intake Lifetime non-drinker (finding) [facility] Work Phone: Adult Depression Screening Assessment 2 [facility] NEGATED: Highlighted rowStart: NINF History of tobacco use Passive smoker [facility] Work Phone: Medical Equipment Procedure Code Equipment Code Equipment Origin al Text Equipment Identifier Dates Angiogram, lower extremity, left Multiple peripheral artery stent, bare-metal [id number] [facility] Start: 05-07-2023 Goals Date Patient Goal Desired Activity /State Clinical Notes 11-03-2008 to 11-02-2023 Patient InstructionsAbMemo cerda MD - 11/02/2023 9:45 AM EDT Note Date & Type Note Facility 11-02-2023 Note HNO ID: [id number] Author: MEMO COLE MD Service: ? Author Type: Physician Type: Progress Notes Filed: 11/03/2023 12:15 Note Text: NAME: Jovani Melendez [facility] NO.: [id number] DATE OF SERVICE: November 02, 2023 (Curtis) Some elements in this clinic note that are critical to medical decision making have been carefully reviewed and included from a prior clinic note dated: November 03, 2022 (Curtis). Referring Provider: Griselda Krause DO Additional Clinicians involved in Jovani Melendez's care: Dr Kimberly Nichole ENT, Dr. 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 Only high-risk feature is the node being greater than 3 cm. He was advised at Tumor Board to undergo Radiation only. Active Smoking /2 ppd MRI done September 2021 for vision [...] adenopathy is identified. 10/05/2021 - MRI Brain: [facility] There is T2 and T2 flair hyperintense [...] neck. Interval resolu (more content not included)... [facility] 11-02-2023 Instructions Memo Cole MD - 11/02/2023 10:13 AM EDT Scans and labs in 1 year RTC 1 week after documented in this encounter [facility] 11-02-2023 History of Presen t illness Narrative Images from the original note were not included. NAME: Jovani Melendez KJ NO.: [id number] DATE OF SERVICE: November 02, 2023 (Curtis) Some elements in this clinic note that are critical to medical decision making have been carefully reviewed and included from a prior clinic note dated: November 03, 2022 (Curtis). Referring Provider: Griselda Krause, Additional Clinicians involved in Jovani Melendez's care: Dr Kimberly Nichole ENT, Dr. 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 Only high-risk feature is the node being greater than 3 cm. He was advised at Tumor Board to undergo Radiation only. Active Smoking /2 ppd MRI done September 2021 for vision [...] adenopathy is identified. 10/05/2021 - MRI Brain: [facility] There is T2 and T2 flair hyperintense [...] respiratory bronchiolitis. 01/30/2019 - Neck dissection at [facility] Base of tongue did note a squamous [...] 2020: Doing well, still smokes, works at [employer]. Reviewed scans and there is no evidence [...] which included preparing to see the patient, eoag-sn-vazi patient care, completing clinical documentation, performing a medically appropriate examination, counseling and educating the patient/family/caregiver, ordering medications, tests, or procedures, independently interpreting results (not separately reported), communicating results to the patient/family/caregiver, and care coordination (not separately reported). Memo Cole MD, CPE Hematology [facility] Oncology Services Provided at: [place], [place] Scribe Attestation: This note was scribed [...] me and under my direction. CC: Griselda Krause, DO [address] [id number] [address] NEWMAN ENT[address] Dr[address] Nichole ENT Dr. Ibarra SC [facility]. documented in this encounter [facility] 10-29-2023 Evaluation note Authored October 29, 2023 10:32 am Sooner if needed, the ER if concerns,The above note written by Shilpi Lantigua LPN acting as human recorder, note dictated by Dr. Griselda Krause [facility] Work Phone: 1(855) 174-196605-10-2024 NoteHNO ID: [id number] Author: DEVIN DOYLE RT(R) Service: ? Author [...] PATIENT PRESENTS WITH AN IMPLANTABLE OR ATTACHED CERTIFIED ORTHOTIST/PEDORTHIST: No RADIOLOGY DEPARTMENT: CT; Exam(s) Completed: Chest and Neck PERIPHERAL IV DATA: Site assessment: Clean,Dry and Intact, Site disposition Discontinued SIGNED BY: RT Craig(R) October 26, 2023 10:07 [facility]05-10-2024 NoteHNO ID: [id number] Author: CURTIS DA SILVA RN Service: ? [...] Melendez DATE: October 26, 2023 TIME: 9:30 [facility]05-10-2024 History of Present illness Narrative* Curtis [...] 26, 2023 TIME: 9:30 AM * Devin Doyle, RT(R) - 10/26/2023 9:45 AM EDT Radiology [...] PATIENT PRESENTS WITH AN IMPLANTABLE OR ATTACHED CERTIFIED ORTHOTIST/PEDORTHIST: No RADIOLOGY DEPARTMENT: CT; Exam(s) Completed: Chest and Neck PERIPHERAL IV DATA: Site assessment: Clean,Dry and Intact, Site disposition Discontinued SIGNED BY: RT Craig(R) October 26, 2023 10:07 AM [facility] History of Present illness Narrative* Ignacia Jack [...] hydrocephalus. He saw Dr. Lara at the [facility]. Also pain behind left eye. No [...] issues. 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 Ignacia Jack MD documented in this [facility] Work Phone: 1(393) 378-114704-19-2024 Instructions* Patient Instructions* Adriana Thomas RN - 10/05/2023 9:[address] Jack will present your case at Tumor Board next Sunday. Someone from the office will call you that day or about your plan. Please call us with any questions or concerns at [phone] opt. 5, opt. 2 For scheduling concerns please call [phone] option 1 [facility] Work Phone: 1(664) 883-598402-28-2024 Evaluation note* Author Curtis Olmosolson [facility] Authored August 15, 2023 5:19pm The above note written by Serafin Flood acting as human recorder, note dictated by Dr. Griselda Krause . [facility] Work Phone: 1(619) 435-363602-28-2024 Evaluation note* [facility] Authored August 15, 2023 5:19pm The above note written by Serafin Flood acting as human recorder, note dictated by Dr. Griselda Krause . Author Shilpi Lantigua [facility] Authored October 29, 2023 10:32 am Sooner if needed, the ER if concerns,The above note written by Shilpi Lantigua LPN acting as human recorder, note dictated by Dr. Griselda Krause [facility] Work Phone: 1(615) 977-973601-15-2024 Evaluation note* Encounter Date Diagnosis Assessment Notes [...] continue to follow with them as scheduled. [email or web address] Other 12-14-2023 Evaluation note* Encounter Date Diagnosis Assessment Notes Treatment Notes Treatment Clinical Notes May, PAD (peripheral artery disease) (ICD-10 - I73.9) Patient recently had angioplasty for occlusion of right iliac artery that was discovered by miner operator. He has been doing well since [...] work before I provide him that consent. [email or web address] Other 12-13-2023 Evaluation note* Encounter Date Diagnosis [...] I will see him in 3 months. [email or web address] Other 11-28-2023 Evaluation note* Encounter Date Diagnosis [...] 3 months Apr, Lightheadedness (ICD-10 - R42) [email or web address] Other 11-20-2023 [facility]* Encounter Date Diagnosis Assessment [...] questions were addressed and consent was obtained. [email or web address] Other 11-14-2023 Evaluation note* Encounter Date Diagnosis [...] M54.2) The patient is now following with [facility]. He states he has an upcoming cervical epidural scheduled. 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 Apr, PAD (peripheral artery disease) (ICD-10 - I73.9) Arterial studies ordered by miner operator indicating peripheral artery disease. The patient does report lower extremity pain and heaviness and I recommend it would be beneficial to consult with a vascular specialist. The patient is in agreement, therefore a referral was initiated. A CTA has been ordered by neurologist , appointment pending [facility] scheduling. Apr, Hyperlipidemia (ICD-10 - E78.5) Blood [...] vocies understanding. We will continue to monitor. [email or web address] Other 10-26-2023 Evaluation note* Encounter Date Diagnosis Assessment Notes Treatment Notes Treatment Clinical Notes Mar, Claudication (ICD-10 - I73.9) [email or web address] Other 10-25-2023 Evaluation note* Encounter Date Diagnosis [...] 4 weeks Mar, Lightheadedness (ICD-10 - R42) [email or web address] Other 10-24-2023 Evaluation note* Encounter Date Diagnosis Assessment Notes Treatment Notes Treatment Clinical Notes Mar, Elevated blood pressure reading (ICD-10 - R03.0) [email or web address] Other 09-28-2023 Evaluation note* Encounter Date Diagnosis [...] infection. Feb, Burning sensation (ICD-10 - R20.8) [email or web address] Other 09-21-2023 Evaluation note* Encounter Date Diagnosis [...] index finger. We will continue to monitor. [email or web address] Other 07-13-2023 Hospital Discharge instructions Diet Plan/Instructions [...] * Discharge Physician: : Lima Joseph MD ([id number]) - Anesthesiology, Pain Management * Discharge Physician Phone: : [phone] [facility] [id number], [place] [address] Special Plan/Instructions for Discharge from 12/27/2022 10:26 AM: * Special Instructions : Spoke to patient Wound Care Instruction for Discharge from 12/27/2022 10:26 AM: * Special Instructions : Spoke to patient [facility] 06-20-2023 Evaluation note* Encounter Date Diagnosis Assessment [...] sent to the office to be completed. [email or web address] Other 05-12-2023 History of Present illness Narrative* [...] with PATIENT DISCHARGED TO: Ambulatory patient, left [place] department area. A Diagnostic radioactive procedure has taken place, with no further precautions necessary other than routine body substance precautions. More information regarding radiation safety can be found usingthis link: [email or web address] SIGNATURE: RT Craig(Neisha) PATIENT NAME: Jovani Melendez DATE: October 27, 2022 TIME: 11:55 AM PAGER/CONTACT #: [facility] History of Present illness Narrative* RT [...] 2022 TIME: 2:39 PM documented in [facility]Wood [facility]04-[facility]23 Miscellaneous Notes* Telephone Encounter - Akash Menezes [...] return call ? Yes documented in this encounterWood [facility]03-29-[facility]23 Instructions* Patient Instructions* Kelly Perez PA-C - [...] perform on same dariusz. documented in this encounterWood [facility]03-29-[facility]23 Nurse Note* Antonia Tripathi MA - 09/13/2022 10:55 AM EDT Additional intake questions: Has the patient had fever, nausea, vomiting, diarrhea, constipation, fatigue for > 1 week? Yes, diarrhea ( 3 times in last 24 hours), fatigue, and Provider Notified Does the patient have a decreased appetite? No Does patient want to see a Color Repairer? No (yes to any of above refer patient to schedulers for dietitian appointment) ) Does patient have any new or increased numbness or tingling of extremities? Yes, left fingers tingling, pain in r calf Is patient interested in fertility information? No Does patient need any prescription refills? No Does patient have an advanced directive in place? No, Patient referred to [facility] Electronically Signed By: Antonia Tripathi MA documented in this encounterWood [facility] Hospital03-29-2023 History of Present illness Narrative* Kelly Perez PA-C - 09/13/2022 10:44 AM EDT This note was created using [employer] ?riter. Subjective Jovani Melendez is a 61 year [...] or pronator drift. Coordination: Romberg sign negative. Jobrtu-Negm-Juvuhi Test normal. Gait: Gait abnormal. Comments: Slightly [...] which included preparing to see the patient, dbtg-qa-crhh patient care, completing clinical documentation, obtaining and/or reviewing separately obtained history, performing a medically appropriate examination, counseling and educating the pat ient/family/caregiver, ordering medications, tests, or procedures, communicating with other HCPs (not separately reported), independently interpreting results (not separately reported), communicatingresults to the patient/family/caregiver, and care coordination (not separately reported). documented in this encounterWood [facility] Hospital03-16-2023 Evaluation note* Encounter Date Diagnosis Assessment Notes [...] her mid twenties. He will see the DRILLING AND PRODUCTION SUPERINTENDENT at Dr. Cadena's office today, and will see the [facility] 09/13/22. I do feel pt needs his FMLA extended until 12/16/22. I encouraged him to continue to follow with these doctors, and we will continue to monitor. [email or web address] Other 02-14-2023 Evaluation note* Encounter Date Diagnosis [...] pain medication and fever reducers as needed. [email or web address] Other 01-11-2023 Evaluation note* Encounter Date Diagnosis Assessment Notes Treatment Notes Treatment Clinical Notes Jun, Other complicated headache syndrome (ICD-10 - G44.59) [email or web address] Other 12-09-2022 Evaluation note* Encounter Date Diagnosis [...] check on him again in 1 month. [email or web address] Other 10-30-2022 Hospital Discharge instructions Additional Instructions [...] week to see how you are doing. [facility] Work Phone: [phone]) 233-659710-10-2022 Miscellaneous Notes* Telephone Encounter - Memo Cole MD - 03/27/2022 3:54 PM EDT Good with me * Telephone Encounter - Asya Reynolds RN - 03/27/2022 2:17 PM EDT Informed patient of your recommendations. He states that he is seeing neurology in [place] and they do not feel he needs [...] neurosurgeon. Asya Reynolds RN documented in this encounterWood [facility] Hospital09-29-2022 Miscellaneous Notes* Telephone Encounter - Pamela Nascimento APRN.NOZZLE OPERATOR - 03/16/2022 2:51 PM EDT Time Frame: Next available Provider: Intra-axial neurosurgeon & Neuro-Oncology (same day) Referring: Memo Cole MD Please instruct patient to hand carry/ upload images prior to appt Dx: Low grade glioma Patient: Jovani Melendez Address: Jovani Melendez [id number] [place] [address] Per Triage: Jovani Melendez is a 61 year old male that requests evaluation of previously diagnosed possible low grade glioma. Patient expectations: Second opinion Tumor Specifics: Location: brain Previous Evaluations: MRI w/wo contrast (10/05/21): 10/05/2021 MRI Brain [facility] Impression: 1. There is T2 and T2 [...] (HCC) [C71.9 (ICD-10-CM)] Order Questions Question Answer [facility] Brain Tumor [facility] Epic access? Yes documented in this encounterWood [facility] Hospital09-29-2022 Evaluation note* Encounter Date Diagnosis Assessment Notes [...] see if this gives him some relief [email or web address] Other 08-15-2022 Evaluation note* Encounter Date Diagnosis [...] - G93.9) Patient had another MRI at [facility]. We are awaiting for the results [...] again next week. We are awaiting for [facility] to fax over the consult and MRI results. Jan, Neck pain (ICD-10 - M54.2) The patients neck pain is persistant but the headache has improved with a medication change. Discussed with Dr. Cadena his persistent neck pain, may need MRI of his neck and/or EMG. Due to his multiple other medications did hold off on any pain medications. [email or web address] Other 07-11-2022 Evaluation note* Encounter Date Diagnosis [...] blood pressure was elevated upon check in. [email or web address] Other 06-20-2022 Evaluation note* Encounter Date Diagnosis [...] rule out other causes of his symptoms. [email or web address] Other 05-24-2022 Evaluation note* Encounter Date Diagnosis [...] will complete the necessary medical disability forms. [email or web address] Other 05-17-2022 Evaluation note* Encounter Date Diagnosis Assessment Notes Treatment Notes Treatment Clinical Notes October, Glioma of brain (ICD-10 - C71.9) Patient has consulted neurosurgeon, Dr. Narayan, and he is now referring on to Dr[facility]igil [facility] for 2nd opinion. Reviewed consult note from [...] this medication. Will continue to follow up [email or web address] Other 05-12-2022 History of Present illness Narrative* Memo Cole MD - 10/27/2021 5:05 PM EDT Images from the original note were not included. NAME: Jovani Melendez CLINIC NO.: [id number] DATE OF SERVICE: October 27, 2021 Some elements in this clinic note that are critical to medical decision making have been carefully reviewed and included from a prior clinic note dated: October 13, 2021 Referring Provider: Griselda Krause, DO Additional Clinicians involved in Jovani Melendez's care: Dr Kimberly Nichole ENT, Dr. Ibarra SC surgery [facility] AMBULATORY TELEPHONE VISIT Jovani Melendez has [...] 1.8 mm of invasive disease (Stage I, dP7O3V6, HPV+ oropharyngeal SCC).resected T1 N1 base of [...] 01/30/19 He had a neck dissection at [facility] HPI: Updated Visit, October 27, 2021: [...] COMP METABOLIC PANEL Memo Cole MD, CPE [place], [place] CC: Griselda Krause, DO [address] [address] [address] Harris [facility] ENT. Dr. Nichole ENT Dr. Ibarra CT surgery [facility]. documented in this encounterWood [facility] Hospital05-09-2022 Evaluation note* Encounter Date Diagnosis Assessment Notes [...] him on to see Dr. Jonny Vigil. [facility] makerist Other 05-04-2022 Miscellaneous Notes* Telephone Encounter - Haily Jovel [facility] - 10/19/2021 12:56 PM EDT Called [facility] Neuro Office spoke with Leslee. She states they have received patient records/referral and have patient scheduled to see Dr Narayan on 10/24. Haily Jovel [facility] * Telephone Encounter - Asya Gramajo [facility] - 10/18/2021 10:34 AM EDT Records faxed. Electronically signed by Asya Gramajo [facility] at 10/18/2021 10:35 AM EDT * Telephone Encounter - Haily Jovel [facility] - 10/13/2021 12:24 PM EDT Noelle: Information ready for you. Haily Jovel [facility] * Telephone Encounter - Antonia Mcguire - 10/13/2021 10:33 AM EDT Referral to neurosurgery - Dr. Narayan or [facility] Noelle/Layo: Can you please refer patient and follow up? Thanks! Antonia Mcguire documented in this encounterWood County Hospital04-28-2022 History of Present illness Narrative* Memo Cole MD - 10/13/2021 10:19 AM EDT Images from the original note were not included. NAME: NoraJovani [facility] NO.: [id number] DATE OF SERVICE: October 13, 2021 Some elements in this clinic note that are critical to medical decision making have been carefully reviewed and included from a prior clinic note dated:October 14, 2020 Referring Provider: Griselda Krause, Additional Clinicians involved in Jovani Melendez's care: Dr Kimberly Nichole ENT, Dr. Ibarra SC surgery [facility] CC: Head and neck cancer ASSESSMENT: [...] 1.8 mm of invasive disease (Stage I, [id number], HPV+ oropharyngeal SCC).resected T1 N1 base of [...] 01/30/19 He had a neck dissection at [facility] HPI: Updated Visit, October 13, 2021: [...] 2020: Doing well, still smokes, works at [employer]. Reviewed scans and there is no evidence [...] adenopathy is identified. 4. 10/05/2021 MRI Brain [facility] Impression: 1. There is T2 and T2 [...] and neck (HCC) Memo Cole MD, CPE [place], [place] CC: Griselda Krause, [address] [address] [address]ly NEWMAN ENT[address] Dr[address] Nichole ENT Dr. Ibarra [facility]. [facility] Miscellaneous Notes* Telephone Encounter - Memo Cole [...] steps. Asya Kumar RN documented in this encounterWood [facility]22 History of Present illness Narrative* Marilyn Hernandez RN - 10/06/2021 8:00 AM EDT Radiology Service Progress Note DATE OF SERVICE: October 06, 2021 TIME: 8:09 AM PATIENT WEIGHT: 175 LBS PATIENT IDENTITY VERIFICATION COMPLETED USING TWO (2) [...] EXAM: CT -CONTRAST INDUCED NEPHROPATHY RISK FACTORS: Not applicable CREATININE: Creatinine Date Value Ref Range Status 10/08/2020 0.90 0.73 - 1.22 mg/dL Final 04/08/2020 0.86 0.73 - 1.22 mg/dL Final 02/27/2019 0.84 0.73 - 1.22 mg/dL Final eGFR-All Other Races Date Value Ref Range Status 10/08/2020 >60 . Final Comment: eGFR (Estimated GFR) Units of measure: mL/min/1.73 meters squared eGFR is derived from the reexpressed MDRD Study equation using the following parameters: serum creatinine, age, gender and race. The creatinine assay has been calibrated to be traceable to IDMS. An eGFR <60 mL/min/1.73m2 for >3 months is consistent with chronic kidney disease. Refer to KDOQI guidelines for clinical interpretation. In patients with unstable renal function, e.g. those with acute kidney injury, the eGFR may not accurately reflect actual GFR. eGFR- Date Value Ref Range Status 10/08/2020 >60 Final P.O.C.T. RESULTS: N/A October 06, 2021 TREATMENT: N/A IV SITE: Ambulatory: A peripheral IV was started in the Right antecubital site with a Angio cath: 20 gauge. IV SITE APPEARANCE: Clean,Dry and Intact SIGNATURE: Marilyn Hernandez RN PATIENT NAME: Jovani Melendez DATE: October 06, 2021 TIME: 8:09 AM * Devin Doyle RT(R) - 10/06/2021 8:00 AM EDT Radiology Service Progress Note PATIENT NAME: Jovani Melendez DATE OF SERVICE: October 06, 2021 TIME: 8:07 AM PATIENT IDENTITY VERIFICATION COMPLETED USING TWO (2) IDENTIFIERS: Name and Date of confirmedby patient verbally. FALL SCREENING: Has the patient had 2 falls in the last year or 1 fall with injury or currently using an Ambulatory Assistive Device (Walker, Cane, Wheelchair, Crutches, etc.)? No PATIENT GENDER DATA: Male PATIENT RELEVANT IMPLANT DATA REVIEWED: Not Applicable RADIOLOGY DEPARTMENT: CT; Exam(s) Completed: Chest and Neck PERIPHERAL IV DATA: Site assessment: Clean,Dry and Intact, Site disposition Discontinued SIGNED BY: RT Craig(R) October 06, 2021 8:07 AM documented in this encounterWood [facility] Hospital04-04-[facility]22 Evaluation note* Encounter Date Diagnosis Assessment Notes [...] to continue with monitoring diet and exercise. [email or web address] Other 03-28-2022 Evaluation note* Encounter Date Diagnosis Assessment Notes Treatment Notes Treatment Clinical Notes Aug, Anxiety and depression (ICD-10 - F41.8) [email or web address] Other 01-13-2022 Evaluation note* Encounter Date Diagnosis Assessment Notes Treatment Notes Treatment Clinical Notes Jun, Sinusitis (ICD-10 - J32.9) I did prescribe the above medications and work note provided. [email or web address] Other 01-12-2022 Evaluation note* Encounter Date Diagnosis Assessment Notes Treatment Notes Treatment Clinical Notes Jun, Sinus pressure (ICD-10 - J34.89) Patient advised of negative results. Encouraged him to call if symtpoms persist or worsen, he verbalized understanding. [email or web address] Other 11-02-2021 Evaluation note* Encounter Date Diagnosis Assessment Notes Treatment Notes Treatment Clinical Notes Apr, Sinus congestion (ICD-10 - R09.81) [email or web address] Other 10-28-2021 Evaluation note* Encounter Date Diagnosis [...] Encouraged patient to continue with their efforts. [email or web address] Other 12-01-2016 History general Narrative - Reported* [...] surgery 02/04 19 Hospitalization History see above [email or web address] Other 12-01-2016 History general Narrative - Reported* [...] 02/04 19 [facility] 11/07/2021 Hospitalization History see above [email or web address] Other 12-01-2016 History general Narrative - Reported* [...] 02/04 19 Surgical History Spinal tap at [facility] 11/07/2021 Hospitalization History see above [email or web address] Other 12-01-2016 History general Narrative - Reported* [...] dissection 01/2019 Surgical History Spinal tap at [facility] 11/07/2021 Hospitalization History see above [email or web address] Other 12-01-2016 History general Narrative - Reported* [...] dissection 01/2019 Surgical History Spinal tap at [facility] 11/07/2021 Surgical History LP at [facility] 08/2022 Hospitalization History see above [email or web address] Other 12-01-2016 History general Narrative - Reported* [...] dissection 01/2019 Surgical History Spinal tap at [facility] 11/07/2021 Surgical History LP at [facility] 08/2022 Hospitalization History see above [email or web address] Other 12-01-2016 History general Narrative - Reported* [...] dissection 01/2019 Surgical History Spinal tap at [facility] 11/07/2021 Surgical History LP at [facility] 08/2022 Surgical History angioplasty right iliac artery 04/2023 Hospitalization History see above [email or web address] Other 05-19-2009 History of Present illness Narrative* [...] He saw Dr. Ba a neurologist in [facility]. * He describes his vision as seeing 1-1/2 . He describes this does not seem quite to but finding a time lab between moving his eyes and having the visual change. [facility] Work Phone: clinical Notes [facility] Evaluation + Plan note [facility] Evaluation noteNo Assessments Information Available [facility]* Diagnosis Glioma of brain (HCC)- Primary Malignant neoplasm of brain, unspecified site Lung nodules Other nonspecific abnormal finding of lung field 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) Malignant neoplasm of head, face, and neck documented in this encounter [facility] [place] [facility]* Diagnosis 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 Malignant neoplasm of head, face, and neck Lung nodules Other nonspecific abnormal finding of lung field Malignant neoplasm of head, face and neck (HCC) Malignant neoplasm of head, face, and neck documented in this encounter [facility] [place] noteNo InformationNort [employer] Other Evaluation noteNo assessment information available [facility] Work Phone: Evaluation note* Diagnosis Onset Date Resolution Status Migraine acute [facility] Work Phone: Evaluation note* Diagnosis NPH (normal pressure hydrocephalus) (HCC)- Primary Idiopathic normal pressure hydrocephalus (INPH) documented [facility] [place]* Diagnosis 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HCC)- Primary NPH (normal pressure hydrocephalus) (HCC) Idiopathic normal pressure hydrocephalus (INPH) documented in this encounter [facility] [place] [facility]* Diagnosis 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HCC) NPH (normal pressure hydrocephalus) (HCC) Idiopathic normal pressure hydrocephalus (INPH) documented [facility] this [facility] [place] [facility]* Diagnosis Onset Date Resolution Status Anxiety and depression acute Essential hypertension acute Hyperlipidemia acute Osteoarthritis cervical spine acute PAD (peripheral artery disease) acute [facility] Work Phone: Evaluation note* Diagnosis 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 Griselda Krause. 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) Malignant neoplasm of head, face, and neck documented in this encounter [facility] [place] [facility]* Diagnosis Malignant neoplasm of head, face and neck (HCC) Malignant neoplasm of head, face, and neck Lung nodules Other nonspecific abnormal finding of lung field 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) Malignant neoplasm of head, face, and neck Localized swelling, mass or lump of neck Swelling, mass, or lump in head and neck [facility] Additional Instructions Obtain Elsy pot and perform nasal irrigations twice a [facility] Work Phone: Reason for referral (narrative)* Diagnostic Procedure Only (Routine) - Closed Specialty Diagnoses / Procedures Referred By Roverto moraes Referred To Contact CT IMAGING Diagnoses Malignant neoplasm of head, face and neck (HCC) Lung nodules 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) Localized swelling, mass or lump of neck Procedures CT CHEST W IVCON CAT SCAN OF CHEST CONTRAST Memo Cole MD [address] [place] [address] [place] [address] [place] [address] Referral ID Status Reason Start Date Expiration Date V isits Requested Visits Authorized [id number] Closed Auto-Generate d Referral 09/23/2021 11/22/2021 1 1 * Diagnostic Procedure Only (Routine) - Closed Specialty Diagnoses / Procedures Referred By Roverto t Referred To Contact CT IMAGING Diagnoses Malignant neoplasm of head, face and neck (HCC) Lung nodules 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) Localized swelling, mass or lump of neck Procedures CT NECK SOFT TISSUE W IVCON CONTRAST CAT OF NECK TISSUE Memo Cole MD [address] [place] [address] [place] [address] [place] [address] Referral ID Status Reason Start Date Expiration Date V isits Requested Visits Authorized [id number] Closed Auto-Generate d Referral 09/23/2021 11/22/2021 1 1 [facility] Summary Purpose Family History No Family History [...] Unknown mother Heart disease Unknown Advance Directives No Advanced [...] Documents on File Type Date Recorded 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 [employer] 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 Expl anation Living Will 10/05/2023 9:39 AM [...] Referred By Roverto t Referred To Contact Neurosurgery Diagnoses Glioma of brain (HCC) Procedures CONSULT TO NEUROSURGERY OFFICE/OUTPATIENT [facility] 60-74 MINUTES Memo Cole MD [address] [place] [address] Referral ID Status Reason Start Date Expiration Date Visits Requested Visits Authorized [id number] Authorized PCP Requested Referral 10/13/2021 10/13/2022 1 1 Specialty Diagnoses / Procedures Referred By Roverto t Referred To Contact CT IMAGING Diagnoses Lung nodules Procedures CT CHEST W IVCON DIAGNOSTIC COMPUTED TOMOGRAPHY THORAX W/CONTRAST Memo Cole MD [address] [place] [address] Ct Imaging Referral ID Status Reason Start Date Expiration Date Visits Requested Visits Authorized [id number] Pending Review Auto-Generat ed Referral 10/30/2022 11/29/2022 1 1 Specialty Diagnoses / Procedures Referred By Roverto t Referred To Contact CT IMAGING Diagnoses Malignant neoplasm of head, face and neck (HCC) Procedures CT NECK SOFT TISSUE W IVCON CT SOFT TISSUE NECK W/CONTRAST MATERIAL Memo Cole MD [address] [place] [address] Ct Imaging Referral ID Status Reason Start Date Expiration Date Visits Requested Visits Authorized [id number] Pending Review Auto-Generat ed Referral 10/30/2022 11/29/2022 1 1 Reason *FU 10/31 Evaluate and Treat Brainstem Lesion 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) Referral Organization [facility] Referring Provider First Name Sheng Referring Provider Last Name Wyatt Referring Provider Specialty Neurosurger y Referred Organization [facility] Referred Provider Jonny Vigil Referred Address [address] [place] [address] ,[place], [place],[address] Referred Provider Specialty Neurological Surgery Referral Priority Routine General Notes Fore, Linnea M 022 02:09:54 PM >Received and fax referral today Reason consult and treat (p t is willing to see him in [place], if not then will see at [facility]) 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) Diagnosis 2 Cervical pain (neck) (M54.2) Diagnosis 3 Pressure in head (R5 1.9) Referral Organization [facility] [place] Referring Provider First Name Griselda Referring Provider Last Name Darling Referring Provider Specialty Family Prac henny Referred Organization [facility] Referred Provider Elvi Cadena Referred Address [address] [place], [place],[address] Referral Priority Routine Specialty Diagnoses / Procedures Referred By Roverto moraes Referred To Contact MR IMAGING Diagnoses 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HCC) Procedures MRI BRAIN WO/W IVCON MRI BRAIN BRAIN STEM W/O W/CONTRAST MATERIAL Kelly Perez PA-C [address] [place] [address] Mr Imaging Referral ID Status Reason Start Date Expiration Date Visits Requested Visits Authorized [id number] Authorized Auto-Generat ed Referral 09/20/2022 10/20/2023 1 1 Referral ID Status Reason Start Date Expiration Date V isits Requested Visits Authorized [id number] Closed Auto-Generate d Referral 09/20/2022 10/20/2023 1 1 Reason pt requesting n ot Dr. Verma, but can see other providers from that group evaluate and treat tinnitus and balance issues Diagnosis 1 Tinnitus of both ear s (H93.13) Diagnosis 2 Balance disorder (R2 6.89) Referral Organization [facility] Cardiology Referring Provider First Name Lilliam Referring Provider Last Name Kamla Referring Provider Specialty Cardiovascu lar Disease Referred Organization [facility] Referred Provider Manuela Ballesteros Referred Address ,[place], [place],[address] Referred Provider Specialty Ear, Nose an d Throat Referral Priority Routine General Notes Yessica Brown 12:40:36 PM >received today, pt has medicaid insurance, will send to Dr. Ballesteros, attachments made, waiting for notes to be locked Reason consult and treat Diagnosis 1 PAD (peripheral arnie ry disease) (I73.9) [facility] [place] Referring Provider First Name Griselda Referring Provider Last Name Darling Referring Provider Specialty Family Prac henny Referred Organization [facility] Referred Provider Filipe Hess Referred Address [address],[place] [address],[place], [place],[address] Referred Provider Specialty Vascular Abdirahman yvon Referral Priority Routine General Notes Linnea Alvarado 023 11:58:24 AM >Received today and sent P2P Specialty Diagnoses / Procedures Referred By Contac t Referred To Contact CT IMAGING Diagnoses 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) Procedures CT CHEST W IVCON DIAGNOSTIC COMPUTED TOMOGRAPHY THORAX W/CONTRAST Memo Cole MD [facility] [place] [address] [place] [address] Referral ID Status Reason Start Date Expiration Date Visits Requested Visits Authorized [id number] Authorized Auto-Generat ed Referral 11/01/2024 12/01/2024 1 1 Specialty Diagnoses / Procedures Referred By Contac t Referred To Contact CT IMAGING Diagnoses 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) Procedures CT NECK SOFT TISSUE W IVCON CT SOFT TISSUE NECK W/CONTRAST MATERIAL Memo Cole MD [address] [place] [address] [place] [address] [place] [address] Referral ID Status Reason Start Date Expiration Date Visits Requested Visits Authorized [id number] Authorized Auto-Generat ed Referral 11/01/2024 12/01/2024 1 1 Referral ID Status Reason Start Date Expiration Date V isits Requested Visits Authorized [id number] Closed Auto-Generate d Referral 10/26/2023 06/17/2024 1 1 Referral ID Status Reason Start Date Expiration Date V isits Requested Visits Authorized [id number] Closed Auto-Generate d Referral 10/26/2023 06/17/2024 1 1 Specialty Diagnoses / Procedures Referred By Contac t Referred To Contact CT IMAGING Diagnoses Lung nodules Procedures CT CHEST W IVCON DIAGNOSTIC COMPUTED TOMOGRAPHY THORAX W/CONTRAST Memo Cole MD [address] [place] [address] [place] [address] Referral ID Status Reason Start Date Expiration Date V isits Requested Visits Authorized [id number] Closed Auto-Generate d Referral 10/30/2022 11/29/2022 1 1 Specialty Diagnoses / Procedures Referred By Contac t Referred To Contact CT IMAGING Diagnoses Malignant neoplasm of head, face and neck (HCC) Procedures CT NECK SOFT TISSUE W IVCON CT SOFT TISSUE NECK W/CONTRAST MATERIAL Memo Cole MD [address] [place] [address] [place] [address] [place] [address] Referral ID Status Reason Start Date Expiration Date V isits Requested Visits Authorized [id number] Closed Auto-Generate d Referral 10/30/2022 11/29/2022 1 [...] content) DATE CREATED AUTHOR 08/01/2019 [facility] DATE CREATED AUTHOR AUTHOR'S ORGANIZ ATION 11/05/2021 [employer] DATE CREATED AUTHOR AUTHOR'S ORGANIZ ATION 01/19/2022 [facility] dical Specialist DATE CREATED AUTHOR AUTHOR'S ORGANIZ ATION 10/02/2022 [facility] DATE CREATED AUTHOR AUTHOR'S ORGANIZ ATION 12/25/2022 [facility] DATE CREATED AUTHOR AUTHOR'S ORGANIZ ATION [facility]/03/2023 [facility] DATE CREATED AUTHOR AUTHOR'S ORGANIZ ATION 10/10/2023 [facility] DATE CREATED AUTHOR AUTHOR'S ORGANIZ ATION 11/04/2023 [facility] DATE CREATED AUTHOR AUTHOR'S ORGANIZ ATION 12/20/2023 [facility] DATE CREATED AUTHOR AUTHOR'S ORGANIZ ATION 01/07/2024 [facility] DATE CREATED AUTHOR AUTHOR'S ORGANIZ ATION 01/18/2024 [facility] dical Specialists EPIC DATE CREATED AUTHOR AUTHOR'S ORGANIZ ATION 02/13/2024 [facility] DATE CREATED AUTHOR AUTHOR'S ORGANIZ ATION 02/21/2024 [facility] DATE CREATED AUTHOR AUTHOR'S ORGANIZ ATION 03/24/2024 [facility] Source Comments (unrecognize d section and content) In the event this informatio n is protected by the Federal Confidentiality of Alcohol and Drug Abuse Patient Records regulations: The Federal rules restrict any use of the information to criminally investigate or prosecute any alcohol or drug abuse patient.[facility] the event this information is protected by the Federal Confidentiality of Alcohol and Drug Abuse Patient Records regulations: The Federal rules restrict any use of the information to criminally investigate or prosecute any alcohol or drug abuse patient.[facility] Hospital[facility] the event this information is protected by the Federal Confidentiality of Alcohol and Drug Abuse Patient Records regulations: The Federal rules restrict any use of the information to criminally investigate or prosecute any alcohol or drug abuse patient.[facility] Hospital[facility] the event this information is protected by the Federal Confidentiality of Alcohol and Drug Abuse Patient Records regulations: The Federal rules restrict any use of the information to criminally investigate or prosecute any alcohol or drug abuse patient.[facility] HospitalIn the event this information is protected by the Federal Confidentiality of Alcohol and Drug Abuse Patient Records regulations: The Federal rules restrict any use of the information to criminally investigate or prosecute any alcohol or drug abuse patient.[facility] Hospital[facility] the event this information is protected by the Federal Confidentiality of Alcohol and Drug Abuse Patient Records regulations: The Federal rules restrict any use of the information to criminally investigate or prosecute any alcohol or drug abuse patient.[facility] HospitalIn the event this information is protected by the Federal Confidentiality of Alcohol and Drug Abuse Patient Records regulations: The Federal rules restrict any use of the information to criminally investigate or prosecute any alcohol or drug abuse patient.[facility] Hospital[facility] the event this information is protected by the Federal Confidentiality of Alcohol and Drug Abuse Patient Records regulations: The Federal rules restrict any use of the information to criminally investigate or prosecute any alcohol or drug abuse patient.[facility] Hospital[facility] the event this information is protected by the Federal Confidentiality of Alcohol and Drug Abuse Patient Records regulations: The Federal rules restrict any use of the information to criminally investigate or prosecute any alcohol or drug abuse patient.[facility] Hospital[facility] the event this information is protected by the Federal Confidentiality of Alcohol and Drug Abuse Patient Records regulations: The Federal rules restrict any use of the information to criminally investigate or prosecute any alcohol or drug abuse patient.[facility] Hospital[facility] the event this information is protected by the Federal Confidentiality of Alcohol and Drug Abuse Patient Records regulations: The Federal rules restrict any use of the information to criminally investigate or prosecute any alcohol or drug abuse patient.[facility] HospitalIn the event this information is protected by the Federal Confidentiality of Alcohol and Drug Abuse Patient Records regulations: The Federal rules restrict any use of the information to criminally investigate or prosecute any alcohol or drug abuse patient.[facility] HospitalIn the event this information is protected by the Federal Confidentiality of Alcohol and Drug Abuse Patient Records regulations: The Federal rules restrict any use of the information to criminally investigate or prosecute any alcohol or drug abuse patient.[facility] Reason for Visit (unrecogniz ed section and content) Reason Comments Results Reason Comments Head and Neck Cancer Specialty Diagnoses / Procedures Referred By Contac t Referred To Contact Hematology/Oncology / HEMATOLOGY/ONCOLOGY Diagnoses Follow-up examination 1 year follow up LABS WITH CT Procedures EST PATIENT Memo Cole MD [facility] [place] [address] Memo Cole MD [facility] [place] [address] Referral ID Status Reason Start Date Expiration Date Visits Re quested Visits Authorized [id number] Closed 10/13/2021 06/17/2022 1 1 Reason Comments Referral Information Neurosurgery Reason Comments Established Patient Specialty Diagnoses / Procedures Referred By Contac t Referred To Contact Hematology/Oncology / HEMATOLOGY/ONCOLOGY Diagnoses 2 week phone follow up [phone] Procedures PHYS/QHP TELEPHONE EVALUATION 5-10 MIN PROVIDER SPECIALTY PHONE CALL Memo Cole MD [address] [place] [address] Memo Cole MD [address] [place] [address] [place] [address] Referral ID Status Reason Start Date Expiration Date Visits Re quested Visits Authorized [id number] Closed 10/27/2021 06/17/2022 1 1 Reason Comments Triage Internal Referral--o ld Reason Comments Appointment Reason Comments New Patient Specialty Diagnoses / Procedures Referred By Contac t Referred To Contact Neurology / BRAIN TUMOR Diagnoses Hydrocephalus (HCC) Hydrocephalus Procedures OFFICE/OUTPATIENT NEW MODERATE MDM 45-59 MINUTES NEW SURGICAL Elvi Cadena MD [address] [facility] [address] [phone] Kelly Perez PA-C [address] [place] [address] Referral ID Status Reason Start Date Expiration Date Visits Re quested Visits Authorized [id number] Closed 09/13/2022 06/17/2023 1 1 Reason Comments Patient Question Reason Comments Radiology MRI Specialty Diagnoses / Procedures Referred By Contac t Referred To Contact MR IMAGING Diagnoses 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HCC) Procedures MRI BRAIN WO/W IVCON MRI BRAIN BRAIN STEM W/O W/CONTRAST MATERIAL Kelly Perez PA-C [address] [place] [address] Mr Imaging Referral ID Status Reason Start Date Expiration Date V isits Requested Visits Authorized [id number] Closed Auto-Generate d Referral 09/20/2022 10/20/2023 1 [...] NECK W/CONTRAST MATERIAL Memo Cole MD [address] [place] [address] [place] [address] Referral ID Status Reason Start Date Expiration Date V isits Requested Visits Authorized [id number] Closed Auto-Generate d Referral 10/26/2023 06/17/2024 1 1 Specialty Diagnoses / Procedures Referred By Contac t Referred To Contact CT IMAGING Diagnoses Lung nodules Procedures CT CHEST W IVCON DIAGNOSTIC COMPUTED TOMOGRAPHY THORAX W/CONTRAST Memo Cole MD [address] [place] [address] [place] [address] Referral ID Status Reason Start Date Expiration Date V isits Requested Visits Authorized [id number] Closed Auto-Generate d Referral 10/30/2022 11/29/2022 1 1 Specialty Diagnoses / Procedures Referred By Contac t Referred To Contact CT IMAGING Diagnoses Malignant neoplasm of head, face and neck (HCC) Lung nodules 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) Localized swelling, mass or lump of neck Procedures CT NECK SOFT TISSUE W IVCON CONTRAST CAT OF NECK TISSUE Memo Cole MD [address] [place] [address] [place] [address] Referral ID Status Reason Start Date Expiration Date V isits Requested Visits Authorized [id number] Closed Auto-Generate d Referral 09/23/2021 11/22/2021 1 1 Care Teams (unrecognized sec tion and content) Template Reproduction Technician Relationship Specialty Start Date End Date Griselda Krause [address] [place] [phone] PCP - General Family Practice 11/20/18 Griselda Krause [address] [place] [phone] Referring Family Practice 11/20/18 Template Reproduction Technician Relationship Specialty Start Date End Date Griselda Krause [address] [place] [phone] PCP - General Family Practice 11/20/18 Griselda Krause [address] [place] [address] [place] [phone] Referring Family Practice 11/20/18 Template Reproduction Technician Relationship Specialty Start Date End Date Griselda Krause [address] [place] [address], [place] [phone] PCP - General Family Practice 11/20/18 Griselda Krause [address] [place] [address], [place] [phone] Referring Family Practice 11/20/18 Template Reproduction Technician Relationship Specialty Start Date End Date Griselda Krause [address] [place] [address], [phone] PCP - General Family Practice 11/20/18 Griselda Krause [address] [place] [address], [phone] Referring Family Practice 11/20/18 Template Reproduction Technician Relationship Specialty Start Date End Date Griselda Krause [address] [place] [address], [place] [phone] PCP - General Family Medicine 11/20/18 Griselda Krause [address] [place] [address], [place] [phone] Referring Family Medicine 11/20/18 Template Reproduction Technician Relationship Specialty Start Date End Date Griselda Krause [address] [place] [address], [place] [phone] PCP - General Family Medicine 11/20/18 Griselda Krause [address] [place] [address], [place] [phone] Referring Family Medicine 11/20/18 Team Status: Inactive Member Role Status Dates Griselda Darling , DO Primary Care Provider Active Daniel Gaytan APRN Emergency Provider Active Team Status: Active Member Role Status Griselda Krause , DO Primary Care Provider Active Elvi Cadena MD Attending Provider Active Team Status: Active Member Role Status Griselda Krause , DO Primary Care Provider Active Team Status: Inactive Member Role Status Griselda Krause , DO Primary Care Provider Active Landy Wong Jr, MD Emergency Provider Active Team Status: Active Member Role Status Griselda Krause , DO Primary Care Provider Active Nikole Thomason APRN DRILLING AND PRODUCTION SUPERINTENDENT-C Attending Provider A ctive Team Status: Inactive Member Role Status Griselda Krause , DO Primary Care Provider Active Elvi Cadena MD Attending Provider Active Team Status: Inactive Member Role Status Griselda Krause , Primary Care Provider Active Nikole Thomason APRN DRILLING AND PRODUCTION SUPERINTENDENT-C Attending Provider A ctive Template Reproduction Technician Relationship Specialty Start Date End Date Griselda Krause [address] [place] [phone] PCP - General Family Medicine 11/20/[address] [phone] Referring Family Medicine 11/20/18 Elvi Cadena MD [address] [place] [address] Referring Neurology 08/18/22 Template Reproduction Technician Relationship Specialty Start Date End Date Griselda Krause [address] [place] [phone] PCP - General Family Medicine 11/20/[address] [phone] Referring Family Medicine 11/20/18 Elvi Cadena MD [address] [place] [address] Referring Neurology 08/18/22 Template Reproduction Technician Relationship Specialty Start Date End Date AndreaGriselda meneseser [address] [place] [phone] PCP - General Family Medicine 11/20/18 Griselda Krause Adriana [address] [place] [address], [place] [phone] Referring Family Medicine 11/20/18 Elvi Cadena MD [address] [facility] [address] [phone] Referring Neurology 08/18/22 Team Status: Inactive Member Role Status Dates Griselda Krause DO Primary Care Provider, Attending Provi skye Active Team Status: Inactive Member Role Status Dates Griselda Krause DO Primary Care Provider Active Lima Joseph [...] Active Ruddy Harvey MD Attending Provider Active Template Reproduction Technician Relationship Specialty Start Date End Date Griselda Krause DO [address] [place] [address] PCP - General Family Medicine 02/13/23 Template Reproduction Technician Relationship Specialty Start Date End Date Griselda Krause DO [address] [place] [address] PCP - General Family Medicine 02/13/23 Team Status: Inactive Member Role Status Dates Griselda Krause DO Primary Care Provider Active Sta rt: May 04, 2023 End: May 04, 2023 Nikole Thomason APRN DRILLING AND PRODUCTION SUPERINTENDENT-C Attending Provider Active Start: April End: May [...] September 05, 2023 End: September 05, 2023 Template Reproduction Technician Relationship Specialty Start Date End Date Griselda Krause DO PCP - General 01/03/19 Template Reproduction Technician Relationship Specialty Start Date End Date Griselda Krause DO [address] [facility] [address] [place] [address] PCP - General 01/03/19 [place] [address] [place] [address] Consulting Physician Hematology and Oncology 10/05/23 Team [...] October 29, 2023 End: October 29, 2023 Template Reproduction Technician Relationship Specialty Start Date End Date Griselda Krause [address] [place] [phone] PCP - General Family Medicine 11/20/18 Griselda Krause [address] [place] [address] Referring Family Medicine 11/20/18 Elvi Cadena MD [address] [facility] [address] [address] Referring Neurology 08/18/22 Team Status: Active Member Role Status Dates Lilliam Cason MD Railroad Signal Technician Active Griselda Krause DO Primary Care Provider Active Team Status: Inactive Member Role Status Dates Griselda Krause DO Primary Care Provide r, Attending Provider Active Start: December 03, 2023 End: December 03, 2023 Team Status: Inactive Member Role Status Dates Griselda Krause DO Primary Care Provide r, Attending Provider Active Start: January 31, 2024 End: January 31, 2024 Template Reproduction Technician Relationship Specialty Start Date End Date Griselda Krause [address] [place], [place] [phone] PCP - General Family Medicine 11/20/18 Griselda Krause [address] [place], [place] [phone] Referring Family Medicine 11/20/18 Elvi Cadena MD [address] [place] [address] Referring Neurology 08/18/22 Template Reproduction Technician Relationship Specialty Start Date End Date Griselda Krause [address] [place], [place] [phone] PCP - General Family Medicine 11/20/18 Griselda Krause [address] [place] [phone] Referring Family Medicine 11/20/18 Elvi Cadena MD [address] [place] [phone] Referring Neurology 08/18/22 Template Reproduction Technician Relationship Specialty Start Date End Date Griselda Krause [address] [place] [phone] PCP - General Family Medicine 11/20/18 Griselda Krause [address] [place] [address] Referring Family Medicine 11/20/18 Goals (unrecognized section and content) Goals from [...] BE BASED ON THE PRIMARY CLINICAL RECORDS. [employer] provides no warranty or guarantee of the accuracy or completeness of information in this document.
--- NOTE | 2024-03-27 10:51 | PM.CN ---
Consult Note: HPI Data of Consult Patient: known to practice within the last 3 years Requesting Physician: Delia Bowser NP Primary Care Provider: GRISELDA KRAUSE Consult Narrative Reason for consult: f/u Narrative: Jovani Kong a pleasant 62 year old male presents for evaluation and management of chronic neck and left shoulder pain. Continues to have moderate to severe neck pain, today pain 8/10 increasing to 10/10 with activity and lifting. Patient utilizing tylenol, ibuprofen, norco 5-325 PRN with mild improvement without side effects. Patient could not tolerate gabapentin 100-200, too drowsy, failed baclofen. patient following with NS with planned surgical intervention 04/09/24, planning to perform multilevel ACDF. patient would like to discuss TPIs today due to severe pain. increased pain with turning head and all activity, improved with ice and lying flat. cc:: CC: Delia Bowser NP Review of Systems ROS Status of ROS 10 or more systems reviewed and unremarkable except as noted in history and below Musculoskeletal Reports: neck pain and extremity pain PFSH PFSH Medical History Neck pain ?M54.2 - Cervicalgia (ICD-10) Low back pain ?M54.50 - Low back pain, unspecified (ICD-10) Smoker ?F17.200 - Nicotine dependence, unspecified, uncomplicated (ICD-10) Irregular heart beat ?I49.9 - Cardiac arrhythmia, unspecified (ICD-10) Hypertension ?I10 - Essential (primary) hypertension (ICD-10) Surgical History H/O neck dissection ?Z98.890 - Other specified postprocedural states (ICD-10) Social History Little interest or pleasure in doing things: not at all Feeling down, depressed, or hopeless: not at all Meds Home Medications and Allergies Home Medications ?Medication ?Instructions ?Recorded ?Confirmed ?Type amlodipine 5 mg tablet (Norvasc) 5 mg PO DAILY 04/16/23 03/11/24 History aspirin 81 mg tablet,delayed 81 mg PO DAILY 04/16/23 03/11/24 History release (Adult Low Dose Aspirin) hydroxyzine HCl 25 mg tablet 25 mg PO BID PRN sleep 04/16/23 03/11/24 History mirtazapine 15 mg tablet 15 mg PO DAILY 04/16/23 12/17/23 History hydrocodone 5 mg-acetaminophen 325 1 tab PO DAILY PRN severe pain #30 06/27/23 03/11/24 Rx mg tablet tabs ibuprofen 600 mg tablet (IBU) 600 mg PO BID 11/28/23 12/17/23 History buspirone 5 mg tablet 5 mg PO TID 12/17/23 03/11/24 History tizanidine 4 mg capsule 4 mg PO Q12H 12/17/23 03/11/24 History hydrocodone 5 mg-acetaminophen 325 1 tab PO BID PRN pain #45 tabs 01/10/24 Rx mg tablet hydrocodone 5 mg-acetaminophen 325 See Rx Instructions .Route 02/19/24 Rx mg tablet .COMPLEX PRN pain #45 tabs clopidogrel 75 mg tablet mg 03/11/24 History methylprednisolone 4 mg tablets in See Rx Instructions .Route 03/11/24 Rx a dose pack (Medrol (Slim)) .COMPLEX #21 ea hydrocodone 5 mg-acetaminophen 325 See Rx Instructions .Route 03/13/24 Rx mg tablet .COMPLEX PRN pain #45 tabs Allergies Allergy/AdvReac Type Severity Reaction Status Date / Time cephalexin (From Keflex) Allergy Unknown Verified 12/17/23 11:03 Exam Constitutional Documenting provider has reviewed patient's vital signs: yes Common normals: no apparent distress, oriented x3, healthy appearing, alert and well nourished General appearance: cooperative [facility] Common normals: normocephalic, hearing grossly normal bilaterally and moist oral mucous membranes Head and scalp: normocephalic Eye Common normals: PERRL Pupil: PERRL Neck & C-Spine Common normals: full ROM General: normal visual inspection Cervical spine: cervical ROM normal, pain with cervical ROM, paracervical muscle tenderness and paracervical muscle spasm Other: positive spurlings, decreased sensation following C5,6,7 pattern strength 5/5 in BUE facet pain and loading positive bilaterally new onset trigger points to left splenius capitus and trapezius Chest Common normals: inspection of chest normal Respiratory Common normals: normal respiratory effort, no retractions and no use of accessory muscles Extremity Left upper extremity: shoulder joint Other: good ROM, empty can test negative, scratch test negative, no pain with cross adduction. Neuro Common normals: oriented x3, CN's II-XII intact bilaterally, moves all extremities, no focal motor deficits, no sensory deficits noted and deep tendon reflexes 2+ bilaterally Sensorium/orientation: alert Motor exam: strength 5/5 throughout and no movement abnormalities noted Psych Common normals: mental status grossly normal, thought process normal, cooperative, affect normal, speech normal and activity/motor behavior normal Speech: normal speech Thought process: normal thought process Assessment and Plan Assessment and Plan (1) Myalgia, other site: Assessment and Plan: TPI performed to left splenius capitus and trapezius muscle The procedure risks, hazards and alternatives were discussed with the patient and a proper consent was obtained. The area over the myofascial spasm was prepped with alcohol utilizing sterile technique. After isolating it between two palpating fingertips a 25-gauge 1.5 needle was placed in the center of the myofascial spasms and a negative aspiration was performed. Then 1 cc of lidocaine was injected into each trigger point x6 in the left splenius capitus and trapezius muscle. The patient tolerated the procedure well without any apparent difficulties or complications. They were feeling relief by the time the block had set. pain preop 8-03/27 post op 10/25 (2) Degenerative disc disease, cervical: (3) Cervical spondylosis: (4) Cervical stenosis of spinal canal: (5) Cervical radiculopathy: (6) Left shoulder pain: (7) Chronic prescription opiate use: Assessment and Plan: recent fill of xanax through PCP for smoking cessation, we discussed the violation of his [employer] and the dangers of taking a benzodiazepine while on opioids. I have asked the patient to bring in the xanax for disposal, pt agreeable Plan TPI performed as documented above with moderate relief per pt increase hydrocodone-acetaminophen to 7.5mg BID PRN moderate to severe pain temporarily, risks vs benefits reviewed. surgeon to manage post-op pain and care as documented above pt to bring xanax for disposal, has not utilized recently naloxone discussed and prescribed continue motrin and tylenol PRN, denies side effects encouraged PRN heat and topical creams including blue emu and icy hot that pt has at home f/u 3 months, sooner if needed
== END 2024-03-27 09:38 | disposition home or self-care (01) ==
LOC: PM 09:38
PROVIDERS: PCP Family Medicine; Visit Provider Nurse Practitioner
DX: M79.18 Myalgia, other site (principal); M50.30 Other cervical disc degeneration, unspecified cervical region; M48.02 Spinal stenosis, cervical region; Z79.891 Long term (current) use of opiate analgesic; M25.512 Pain in left shoulder
CPT/HCPCS: 20552

== ENCOUNTER 2024-07-02 11:41 | Outpatient (OUT) | payer MEDICARE, OTHER, SELFPAY ==
--- NOTE | 2024-07-02 12:10 | PM.CN ---
Consult Note: HPI Data of Consult Patient: known to practice within the last 3 years Requesting Physician: Delia Bowser NP Primary Care Provider: GRISELDA KRAUSE Consult Narrative Reason for consult: f/u Narrative: Jovani Kong a pleasant 63 year old male presents for evaluation of chronic neck and radicular pain. Pt underwent cervical fusion at C5-7 04/09/24 with mild improvement per pt. Pain today /10 in left neck and shoulder radiating into left arm. Patient reports tingling and weakness of LUE. Pain increased with all activity. Mild relief from motrin and tylenol, pt started lyrica 50mg HS last night through his NS team. Previously pt was on hydrocodone-acetaminophen through our office with benefit. cc:: CC: Delia Bowser NP Review of Systems ROS Status of ROS 10 or more systems reviewed and unremarkable except as noted in history and below Musculoskeletal Reports: neck pain and extremity pain PFSH PFSH Medical History Neck pain ?M54.2 - Cervicalgia (ICD-10) Low back pain ?M54.50 - Low back pain, unspecified (ICD-10) Smoker ?F17.200 - Nicotine dependence, unspecified, uncomplicated (ICD-10) Irregular heart beat ?I49.9 - Cardiac arrhythmia, unspecified (ICD-10) Hypertension ?I10 - Essential (primary) hypertension (ICD-10) Surgical History H/O neck dissection ?Z98.890 - Other specified postprocedural states (ICD-10) Social History Little interest or pleasure in doing things: not at all Feeling down, depressed, or hopeless: not at all Meds Home Medications and Allergies Home Medications ?Medication ?Instructions ?Recorded ?Confirmed ?Type amlodipine 5 mg tablet (Norvasc) 5 mg PO DAILY 04/16/23 03/11/24 History aspirin 81 mg tablet,delayed 81 mg PO DAILY 04/16/23 03/11/24 History release (Adult Low Dose Aspirin) hydroxyzine HCl 25 mg tablet 25 mg PO BID PRN sleep 04/16/23 03/11/24 History mirtazapine 15 mg tablet 15 mg PO DAILY 04/16/23 12/17/23 History hydrocodone 5 mg-acetaminophen 325 1 tab PO DAILY PRN severe pain #30 06/27/23 03/11/24 Rx mg tablet tabs ibuprofen 600 mg tablet (IBU) 600 mg PO BID 11/28/23 12/17/23 History buspirone 5 mg tablet 5 mg PO TID 12/17/23 03/11/24 History tizanidine 4 mg capsule 4 mg PO Q12H 12/17/23 03/11/24 History hydrocodone 5 mg-acetaminophen 325 1 tab PO BID PRN pain #45 tabs 01/10/24 Rx mg tablet hydrocodone 5 mg-acetaminophen 325 See Rx Instructions .Route 02/19/24 Rx mg tablet .COMPLEX PRN pain #45 tabs clopidogrel 75 mg tablet mg 03/11/24 History methylprednisolone 4 mg tablets in See Rx Instructions .Route 03/11/24 Rx a dose pack (Medrol (Slim)) .COMPLEX #21 ea hydrocodone 5 mg-acetaminophen 325 See Rx Instructions .Route 03/13/24 Rx mg tablet .COMPLEX PRN pain #45 tabs Allergies Allergy/AdvReac Type Severity Reaction Status Date / Time cephalexin (From Keflex) Allergy Unknown Verified 12/17/23 11:03 Exam Constitutional Documenting provider has reviewed patient's vital signs: yes Common normals: no apparent distress, oriented x3, healthy appearing, alert and well nourished General appearance: cooperative [facility] Common normals: normocephalic, hearing grossly normal bilaterally and moist oral mucous membranes Head and scalp: normocephalic Eye Common normals: PERRL Pupil: PERRL Neck & C-Spine Common normals: full ROM General: normal visual inspection Cervical spine: cervical ROM abnormal, pain with cervical ROM, cervical spine tenderness and trapezius muscle tenderness; no paracervical muscle spasm Other: decreased sensation to left 3,4,5, positive facet loading C2-4 strength 4/5 in LUE and 5/5 in RUE Chest Common normals: inspection of chest normal Respiratory Common normals: normal respiratory effort, no retractions and no use of accessory muscles Neuro Common normals: oriented x3, CN's II-XII intact bilaterally, moves all extremities, no focal motor deficits, no sensory deficits noted and deep tendon reflexes 2+ bilaterally Sensorium/orientation: alert Motor exam: strength 5/5 throughout and no movement abnormalities noted Psych Common normals: mental status grossly normal, thought process normal, cooperative, affect normal, speech normal and activity/motor behavior normal Speech: normal speech Thought process: normal thought process Results Additional Findings Additional findings: If on a controlled substance or opioids, I have checked an [place] report on this patient and there are no aberrancies noted in the prescribing history.??If on a controlled substance or opioid a drug screen was completed and reviewed within the last year, and if there has not been a drug screen completed we ordered one today to monitor higher risk, state monitored pain medication use. As part of providing excellent, safe, comprehensive care, the following was completed at our patient's visit: 1. A medication reconciliation and review to ensure accurate knowledge of current/active medications, including asking our patients to inform us about any [id number] medications or herbal remedies/nutritional supplements/alternative remedies. 2. A review to specifically ensure our patients have had annual screening for screening for depression, screening for tobacco use, and screening for unhealthy alcohol use. For concerning screenings had a discussion with the patient, provided patient education, and recommended follow-up with primary care provider when appropriate. If patient noted with a risk of falling, they received education on strength, gait, and balance training to prevent future risk of falling. Assessment and Plan Assessment and Plan (1) Cervical radiculopathy: (2) Cervical stenosis of spinal canal: (3) Status post cervical spinal fusion: Plan left C3-4 C4-5 TFESI under fluoroscopy, risks vs benefits reviewed continue motrin and tylenol, start hydrocodone-acetaminophen 5-325mg BID PRN moderate to severe pain 14 tabs for 1 week trial to bridge pt with interventional therapy continue pregabalin 50mg HS through NS, encouraged him to call in 1-2 weeks if current dose is not helpful. continue HEP as tolerated f/u 2 weeks after injection
--- NOTE | 2024-07-02 12:25 | PM.CN ---
Consult Note: HPI Data of Consult Requesting Physician: Delia Bowser NP Primary Care Provider: GRISELDA KRAUSE Consult Narrative cc:: CC: Delia Bowser NP [facility] Medical History Neck pain ?M54.2 - Cervicalgia (ICD-10) Low back pain ?M54.50 - Low back pain, unspecified (ICD-10) Smoker ?F17.200 - Nicotine dependence, unspecified, uncomplicated (ICD-10) Irregular heart beat ?I49.9 - Cardiac arrhythmia, unspecified (ICD-10) Hypertension ?I10 - Essential (primary) hypertension (ICD-10) Surgical History H/O neck dissection ?Z98.890 - Other specified postprocedural states (ICD-10) Social History Little interest or pleasure in doing things: not at all Feeling down, depressed, or hopeless: not at all Meds Home Medications and Allergies Home Medications ?Medication ?Instructions ?Recorded ?Confirmed ?Type amlodipine 5 mg tablet (Norvasc) 5 mg PO DAILY 04/16/23 03/11/24 History aspirin 81 mg tablet,delayed 81 mg PO DAILY 04/16/23 03/11/24 History release (Adult Low Dose Aspirin) hydroxyzine HCl 25 mg tablet 25 mg PO BID PRN sleep 04/16/23 03/11/24 History mirtazapine 15 mg tablet 15 mg PO DAILY 04/16/23 12/17/23 History hydrocodone 5 mg-acetaminophen 325 1 tab PO DAILY PRN severe pain #30 06/27/23 03/11/24 Rx mg tablet tabs ibuprofen 600 mg tablet (IBU) 600 mg PO BID 11/28/23 12/17/23 History buspirone 5 mg tablet 5 mg PO TID 12/17/23 03/11/24 History tizanidine 4 mg capsule 4 mg PO Q12H 12/17/23 03/11/24 History hydrocodone 5 mg-acetaminophen 325 1 tab PO BID PRN pain #45 tabs 01/10/24 Rx mg tablet hydrocodone 5 mg-acetaminophen 325 See Rx Instructions .Route 02/19/24 Rx mg tablet .COMPLEX PRN pain #45 tabs clopidogrel 75 mg tablet mg 03/11/24 History methylprednisolone 4 mg tablets in See Rx Instructions .Route 03/11/24 Rx a dose pack (Medrol (Slim)) .COMPLEX #21 ea hydrocodone 5 mg-acetaminophen 325 See Rx Instructions .Route 03/13/24 Rx mg tablet .COMPLEX PRN pain #45 tabs Allergies Allergy/AdvReac Type Severity Reaction Status Date / Time cephalexin (From Keflex) Allergy Unknown Verified 12/17/23 11:03 Assessment and Plan Assessment and Plan (1) Cervical radiculopathy: (2) Cervical stenosis of spinal canal: (3) Status post cervical spinal fusion: Plan left C3-4 C4-5 TFESI under fluoroscopy, risks vs benefits reviewed continue motrin and tylenol, start hydrocodone-acetaminophen 5-325mg BID PRN moderate to severe pain 14 tabs for 1 week trial to bridge pt with interventional therapy continue pregabalin 50mg HS through NS, encouraged him to call in 1-2 weeks if current dose is not helpful. continue HEP as tolerated f/u 2 weeks after injection
== END 2024-07-02 11:42 | disposition home or self-care (01) ==
LOC: PM 11:42
PROVIDERS: PCP Family Medicine; Visit Provider Nurse Practitioner
DX: M54.12 Radiculopathy, cervical region (principal); M48.02 Spinal stenosis, cervical region; M43.22 Fusion of spine, cervical region
CPT/HCPCS: G0463

== ENCOUNTER 2024-07-07 08:31 | Day surgery (SDC) | payer MEDICARE, OTHER, SELFPAY ==
--- OUTSIDE RECORDS SUMMARY | 2024-07-07 08:41 | XMS_ITS | CCD ---
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 Name Role Phone Griselda Krause Primary Care Provider Griselda Krause Attending Provider Griselda Krause Unavailable Unavailable Unavailable Griselda Krause Unavailable Sheng Schneider Unavailable Griselda Krause Primary Care Provider [phone] Griselda Krause Unavailable DO Griselda Krause Primary Care Provider MD Elvi Cadena Attending Provider BAILEY Gaytan Emergency Provider MD Landy Wong Jr Emergency Provider Unavailable Unavailable DO Griselda Krause Primary Care Provider [phone] MD Elvi Cadena Attending Provider BAILEY Gaytan Emergency Provider MD Landy Wong Jr Emergency Provider BAILEY Thomason Attending Provider BAILEY Thomason Attending Provider DO Griselda Krause Primary Care Provider MD Elvi Cadena Attending Provider Trish Carney Unavailable Griselda Krause Primary Care Provider Nelida Griselda Raymundo Unavailable Tammi NORRIS, Elvi Ruiz Unavailable DEMOND CAT Attending Unavailable DEMOND CAT Admitting Unavailable TOMEKASGRISELDA Primary Care Unavailable Kuns, DO Griselda Primary Care Provider [phone] Tomekas, DO Camara Attending Provider MD Lima Joseph Attending Provider Dr. BRET HDEZ Attending Unavailable PCP, OTHER Primary Care Unavailable PCP, Other Primary Care Physician Tomekas, DO Griselda Primary Care Provider BAILEY Gaytan Emergency Provider elli, DO Rohit Mullins Emergency Provider Nelida, DO Camara Attending Provider Lilliam Cason Unavailable Tomekas, DO Griselda Primary Care Provider BAILEY Gaytan Emergency Provider [phone] elli, DO Rohit Mullins Emergency Provider Nelida, DO Camara Attending Provider MD Lilliam Cason Attending Provider Ruddy Harvey Unavailable [phone] BAILEY Thomason Attending Provider MD Ruddy Harvey Attending Provider Kuns, DO Griselda Primary Care Provider [phone] Kuns DO, Griselda R Primary Care Provider Kuns, DO Griselda Primary Care Provider ADDIS KHAN Attending Unavailable ADDIS KHAN Referring Unavailable KUNS, GRISELDA R Primary Care Unavailable ADDIS KHAN Attending Unavailable ADDIS KHAN Referring Unavailable KUNS, GRISELDA R Primary Care Unavailable Kuns, DO Griselda Primary Care Provider MD Ruddy Harvey Attending Provider [phone] Griselda Krause DO Primary Care Provider [phone] Griselda Krause DO Primary Care Provider Ignacia Jack MD Unavailable DO Griselda Krause Attending Provider [phone] Griselda Krause Primary Care Provider Elvi Cadena MD Unavailable ABHYANKAR, MEMO Referring Unavailable ABMONTANAANKAR, MEMO Attending Unavailable GRISELDA KRAUSE Primary Care Unavailable ABHYANKAR, MEMO Referring Unavailable GRISELDA KRAUSE Primary Care Unavailable Gibrittany NORRIS, Andrius Vytautas Attending Unavailable Giedraitis , Andrius Vytautas Attending Unavailable Giedraitis , Andrius Vytautas Attending Unavailable Giedraitis , Andrius Vytautas Attending Unavailable Giedraitis , Andrius Vytautas Attending Unavailable Giedraitis , Andrius Vytautas Attending Unavailable Giedraitis , Andrius Vytautas Attending Unavailable CAMILLE HARRIS Referring Unavailable GLORY KRAUSETT R Primary Care Unavailable CAMILLE HARRIS Referring Unavailable GLORY KRAUSETT R Primary Care Unavailable CAMILLE HARRIS Referring Unavailable GRISELDA KRAUSE R Primary Care Unavailable Griselda Krause DO R Primary Care Provider Milks PA-C, Solomon A Unavailable Milks PA-C, Solomon A Unavailable Griselda Krause DO Primary Care Provider Griselda Krause DO Primary Care Provider Milks PA-C Solomon A Attending Provider [phone] MILKS SOLOMON A Attending Unavailable NELIDA GRISELDA R Primary Care Unavailable CAMILLE HARRIS Attending Unavailable GRISELDA KRAUSE R Primary Care Unavailable MILKRoge SOLOMON A Attending Unavailable KUNS, GRISELDA R Primary Care Unavailable CAMILLE HARRIS Attending Unavailable KUNS, GRISELDA R Primary Care Unavailable MilksSolomon Admitting Unavailable MilksSolomon Attending Unavailable Kuns, Griselda Primary Care Unavailable Ruddy Harvey Attending Unavailabl e Kuns, Griselda Primary Care Unavailable LangenbergRuddy Admitting Unavailabl e Kuns, Griselda Admitting Unavailable Kuns, Griselda Primary Care Unavailable Kuns, Griselda Attending Unavailable ELVI CADENA Attending Unavailable ELVI CADENA Attending Unavailable ELVI CADENA Attending Unavailable LANDY ROSS Attending Unavailable ELVI CADENA Attending Unavailable KARIME FRANCO Attending Unavailable JOSE MARRUFO Attending Unavailable ANTONIOONIJEREMY Meneses Referring Unavailable LACONIJEREMY Meneses Attending Unavailable NIKOLE THOMASON Attending Unavailab le GRAZIANI, NIKOLE Mullins Attending Unavailab le GRAZIANI, NIKOLE Mullins Attending Unavailab le GRAZIANI, NIKOLE Mullins Referring Unavailab le GRAZIANKyle, NIKOLE Mullins Attending Unavailab le CADENAELVI ARNOLD Referring Unavailable CADENAELVI ARNOLD Attending Unavailable NIKOLE THOMASON Attending Unavailab LIBBY Rice Referring Unavailable KUNS, GRISELDA R Primary Care Unavailable IGNACIA JACK Attending Unavailable KUNS, GRISELDA R Primary Care Unavailable SOTAK SHIMON K Referring Unavailable KUNS, GRISELDA R Primary Care Unavailable IGNACIA JACK Attending Unavailable SOTAK SHIMON K Referring Unavailable KUNS, GRISELDA R Primary Care Unavailable MARVIN HARRISOFVIVIANA Admitting Unavailable CAMILLE HARRIS Attending Unavailable KUNS, GRISELDA R Primary Care Unavailable KUNS, GRISELDA R Primary Care Unavailable HARRIS, XIAOFEI Referring Unavailable KUNS, GRISELDA R Primary Care Unavailable HARRIS XIAOFEI Referring Unavailable KUNS, GRISELAD R Primary Care Unavailable HARRIS XIAOFEI Admitting Unavailable STEVEN XIAOFEI Attending Unavailable KUNS, GRISELDA R Primary Care Unavailable KUNS, GRISELDA R Referring Unavailable KUNS, GRISELDA R Primary Care Unavailable HARRIS, XIAOFEI Referring Unavailable KUNS, GRISELDA R Primary Care Unavailable HARRIS XIAOFEI Referring Unavailable KUNS, GRISELDA R Primary Care Unavailable Unavailable Unavailable Unavailable Allergies Allergy Classification Reported Allergen(s) Allergy Type Date of Onset Reaction(s) Facility Cephalosporins (antibiotic) (1 source) Cephalexin Drug Allergy 8 [facility] (20 sources) Cephalexin; Translations: [CEPHALEXIN] Drug Allergy [address] [facility] (20 sources) Cephalexin; Translations: [Keflex] Drug Allergy rash [facility] Other (1 source) Cephalexin; Translations: [Keflex] [facility] [place] ([facility] Keflet; Translations: [KEFLET] Propensity to adverse reactions 4 [facility] (1 source) ALLERGIES NOT ON FILE; Translations: [ALLERGIES NOT ON FILE] Propensity to adverse reactions (disorder) [facility] NEGATED: Highlighted row has been ruled out! (1 source) natural latex rubber; Translations: [LATEX, NATURAL RUBBER] Drug allergy (disorder) [facility] [place] NEGATED: Highlighted row has been ruled out! (1 source) No IV Contrast Allergy.; Translations: [IV Dye, Iodine Containing] Drug allergy (disorder) [facility] [place] Medications Current Medications Medication Drug Class(es) Dates Sig (Normalized) Sig (Original) acetaminophen 325 mg oral tablet (1 source) Start: 04-09-2024 take 1 tablet by mouth every six hours 650 mg, oral, Every 6 hours, First dose on Sun04/09/24 at 1915, Phase II/On Unit, If ordered PRN for pain, nurse is permitted to administer this medication for higher pain scores based on patient preference? Yes acetaminophen 325 mg / oxyCODONE hydrochloride 5 mg oral tablet (20 sources) Opioid Agonist Start: 04-30-2024 End: 05-07-2024 take 1 tablet by mouth every six hours for pain oxyCODONE-acetamino phen (Percocet) 5-325 mg tablet Indications: Acute postoperative pain Take 1 tablet by mouth every 6 hours if needed for severe pain (7 - 10) (pain) for up to 7 days. 28 tablet 04/30/2024 05/07/2024 Active Start: 04-28-2024 take 1 tablet by myles th every eight hours as needed Oxycodone-Acetaminophen (Percocet) 5-325 mg tablet Active 1 TAB PO Every 8 hours as needed April 28, 2024 12:00am Start: 04-10-2024 End: 04-17-2024 take 1 tablet by mouth every six hours for pain oxyCODONE-acetaminophen (Percocet) 5-325 mg tablet Indications: Cervical radiculopathy Take 1 tablet by mouth every 6 hours if needed for severe pain (7 - 10) (pain) for up to 7 days. 28 tablet 04/10/2024 04/17/2024 Active Start: 04-17-2022 End: 07-17-2022 take 1 tablet by mouth every six hours as needed for pain Oxycodone-Acetaminophen (Percocet) 5-325 mg tablet Discontinued 1 - 2 TAB PO Every 6 hours as needed for pain 20 April 17, 2022 July 17, 2022 8:01am [id number] 200 actuat albuterol 0.09 mg/actuat metered dose inhaler (20 sources) beta2-Adrenergic Agonist Start: 04-10-2024 take 2 puff(s) by inhalation every four hours albuterol HFA 90 mcg/act inhaler Inhale 2 puffs every 4 (four) hours if needed 04/10/2024 Active Start: 04-10-2024 take 2 puff(s) by in halation every four hours for wheezing albuterol 90 mcg/actuation inhaler Indications: Cervical radiculopathy Inhale 2 puffs every 4 hours if needed for wheezing or shortness of breath. 18 g 11 04/10/2024 Active Start: 04-09-2024 Start: 08-02-2023 End: 08-02-2023 take 1 puff(s) by inhalation every four hours as needed Albuterol Sulfate 90 mcg/actuation HFA aerosol inhaler Discontinued 1 PUFF INHALATION Every 4 hours [...] needed Inhalation every 4 hrs Jun, Active Start: 07-02-2023 End: 04-10-2024 take 2 puff(s) by inhalation every four hours albuterol 90 mcg/actuation inhaler Inhale 2 puffs every 4 hours if needed. 07/02/2023 04/10/2024 Discontinued (Therapy completed) amLODIPine 10 mg oral tablet (20 sources) Dihydropyridine Calcium Channel Clara Start: 02-01-2024 End: 04-01-2024 take 1 tablet by mouth once daily Amlodipine 10 mg tablet Active 10 MG PO Daily April 01, 2024 10:02am Start: 11-29-2023 End: 02-01-2024 take 1 tablet by mouth once daily Amlodipine 10 mg tablet Discontinued 0 .ROUTE .COMPLEX November 29, 2023 11:15am February 01, 2024 10:05am take 1 tablet orally daily Start: 11-29-2023 End: 02-01-2024 take 1 tablet by mouth once daily Amlodipine Discontinued 0 .ROUTE .COMPLEX November 29, 2023 12:15pm February 01, 2024 11:05am take 1 tablet orally daily Start: 11-29-2023 take 1 tablet by myles th once daily Amlodipine Active 0 .ROUTE .COMPLEX November 29, 2023 12:15pm take 1 tablet orally daily Start: 09-05-2023 End: 11-29-2023 take 1 tablet by mouth once daily Amlodipine 10 mg tablet Discontinued 10 MG PO Daily September 04, 2023 11:00pm November 29, 2023 11:15am Start: 03-15-2023 End: 09-05-2023 take 1 tablet by mouth once daily Amlodipine 5 mg tablet Discontinued 5 MG PO Daily August 02, 2023 12:00am September 05, 2023 1:21pm FreeTextSi tablet Orally Once a day; Note: Source Status: Continue; Provider: Nelida Driver aspirin 81 mg delayed release oral tablet (20 sources) Platelet Aggregation Inhibitor, Nonsteroidal Anti-inflammatory Drug Start: 04-14-2024 take 1 tablet by mouth once daily aspirin 81 mg EC tablet Indications: Cervical radiculopathy Take 1 tablet (81 mg) by mouth once daily. Do not fill before April 14, 2024. 04/14/2024 Active Start: 04-14-2024 take 1 tablet by myles th once daily aspirin 81 mg EC tablet Indications: Cervical radiculopathy Take 1 tablet (81 mg) by mouth once daily. Do not fill before April 14, 2024. 04/14/2024 Active Start: 08-02-2023 End: 04-10-2024 take 1 tablet by mouth once daily Aspirin 81 mg tablet,delayed release (DR/EC) Active 81 MG PO Daily August 02, 2023 12:00am Start: 07-17-2022 End: 08-02-2023 take 1 capsule by mouth once daily Aspirin 81 mg Capsule Discontinued 81 MG PO Daily July 17, 2022 12:00am August 02, 2023 12:45pm ASPIRIN 81 PO As pir-81 Active ASPIRIN 81 PO As pir-81 0 Active [...] needed for 15 days. 0 03/30/2023 Active bisacodyl 5 mg delayed release oral tablet (1 source) Stimulant Laxative Start: 04-09-2024 take 1 tablet by mouth every twenty-fou r hours as needed onabotulinumtoxina 200 unt injection (5 sources) Acetylcholine Release Inhibitor Start: 07-20-2023 Botox 200u vial IJ Soln 200 units injection Indications: Spasmodic Torticollis Inject 400 units into neck muscles every 90 days 2 each 3 07/20/2023 Active brexpiprazole 1 mg oral tablet (20 sources) Atypical Antipsychotic Start: 08-02-2023 End: 10-18-2023 take 0.5 mg by mouth once daily Brexpiprazole Discontinued 0.5 MG PO Daily August 02, 2023 2:09pm October 18, 2023 8:55am Start: 08-02-2023 End: 10-18-2023 Brexpiprazole 1 MG tablet Da avinash 08/02/2023 Active Start: 05-31-2023 take 1 tablet by myles th every twenty-four hours Rexulti 1 MG 1 tablet Orally Once a day samples provided May, Active Start: 05-31-2023 take 1 tablet by myles th every twenty-four hours Rexulti 0.5 MG 1 tablet Orally Once a day for 7 days samples provided May, Active busPIRone hydrochloride 10 mg oral tablet (19 sources) Start: 04-09-2024 take 5 mg by mouth twice daily 5 mg, oral, 2 times daily, First dose on Sun04/09/24 at 2100, Phase II/On Unit Start: 01-31-2024 End: 07-03-2024 Buspirone 5 mg tablet Discon tinued 5 MG PO January 30, 2024 11:00pm July 03, 2024 9:50am Start: 12-31-2023 take 1 tablet by myles th once daily in the morning, then take 1 tablet by mouth once daily in the evening, then take 1 tablet by mouth at bedtime busPIRone (Buspar) 5 MG tablet Indications: Generalized anxiety disorder (CMS/HCC) TAKE 1 TABLET BY MOUTH EVERY MORNING , TAKE ONE TABLET BY MOUTH EVERY EVENING , AND 1 TABLET BEFORE BEDTIME 90 tablet 3 12/31/2023 Active calcium chloride 0.0014 meq/ ml / potassium chloride 0.004 meq/ml / sodium chloride 0.103 meq/ml / sodium lactate 0.028 meq/ml injectable solution (2 sources) Start: 04-09-2024 End: 04-10-2024 Start: 04-09-2024 End: 04-10-2024 take 20 mL intravenously every hour 20 mL/hr, intravenous, Continuous, Starting on Sun04/09/24 at 1215, Preprocedure chlorhexidine gluconate 1.2 mg/ml mouthwash (10 sources) Start: 02-11-2024 End: 04-10-2024 chlorhexidine (Hibiclens) 4 % external liquid Indications: Cervical radiculopathy , Senile osteoporosis Use as directed daily preoperatively 473 mL 02/11/2024 04/10/2024 Discontinued (Stop Taking at Discharge) Start: 02-11-2024 End: 04-10-2024 chlorhexidine (Peridex) 0.12 % solution Indications: Cervical radiculopathy , Senile osteoporosis Swish and spit with 15ml of solution the night before and morning of surgery. Do not swallow. 15 mL 02/11/2024 04/10/2024 Discontinued (Stop Taking at Discharge) citalopram 10 mg oral tablet (20 sources) Serotonin Reuptake Inhibitor Start: 12-03-2023 End: 04-01-2024 take 1 tablet by mouth once daily Citalopram (Celexa) 10 mg tablet Active 10 MG PO Daily 90 April 01, 2024 10:02am Start: 12-26-2021 End: 12-03-2023 take 1 tablet by mouth once daily Citalopram 20 mg tablet Discontinued 20 MG PO Daily August 02, 2023 12:00am December 03, 2023 9:48am FreeTextSi tablet Orally Once a day; Note: Source Status: Continue; Provider: Nelida Driver Start: 10-22-2018 take 1 tablet by myles th once daily citalopram (CELEXA) 40 mg tablet Take 40 mg by mouth once daily. 0 10/22/2018 Active Start: 12-10-2017 End: 04-29-2018 Citalopram 40 mg tablet Disc ontinued 20 MG PO Daily December 09, 2017 11:00pm April 29, 2018 2:12pm Start: 12-10-2017 End: 04-29-2018 take 20 mg by mouth once daily Citalopram Discontinued 20 MG PO Daily December 10, 2017 12:00am April 29, 2018 3:12pm take 0.5 tablet by m out once daily citalopram (CeleXA) 20 mg tablet Take 0.5 tablets (10 mg) by mouth once daily. Active Comment on above: Take 40 mg by mouth once daily. clopidogrel 75 mg oral tablet (20 sources) [id number] Platelet Inhibitor Start: 04-23-2024 clopidogrel (Plavix) 75 mg tablet Indications: Cervical radiculopathy Take 1 tablet (75 mg) by mouth once daily. Do not fill before April 23, 2024. 04/23/2024 Active Start: 04-23-2024 clopidogrel (P lavix) 75 mg tablet Indications: Cervical radiculopathy Take 1 tablet (75 mg) by mouth once daily. Do not fill before April 23, 2024. 04/23/2024 Active Start: 04-14-2024 End: 04-10-2024 take 1 tablet by mouth once daily clopidogrel (Plavix) 75 mg tablet Indications: Cervical radiculopathy Take 1 tablet (75 mg) by mouth once daily. Do not fill before April 14, 2024. 04/14/2024 04/10/2024 Discontinued Start: 05-07-2023 End: 04-10-2024 take 1 tablet by mouth in the morning clopidogrel (Plavix) 75 MG tablet Take 75 mg by mouth in the morning. 06/27/2023 Active cyclobenzaprine hydrochloride 10 mg oral tablet (20 sources) Muscle Relaxant Start: 06-03-2024 take 1 tablet by mouth three times daily as needed for muscle spasms cyclobenzaprine (Flexeril) 10 mg tablet Indications: muscle spasm Take 1 tablet (10 mg) by mouth 3 times a day as needed for muscle spasms for up to 7 days. 21 tablet 06/03/2024 Active Start: 04-30-2024 End: 05-30-2024 take 1 tablet by mouth every eight hours for muscle spasms cyclobenzaprine (Flexeril) 10 mg tablet Indications: Muscle spasms of neck Take 1 tablet (10 mg) by mouth every 8 hours if needed for muscle spasms. 90 tablet 04/30/2024 Active Start: 04-09-2024 End: 04-17-2024 take 1 tablet by mouth three times daily as needed for muscle spasms cyclobenzaprine (Flexeril) 10 mg tablet Indications: muscle spasm Take 1 tablet (10 mg) by mouth 3 times a day as needed for muscle spasms for up to 7 days. 21 tablet 04/17/2024 Active Start: 03-21-2023 End: 05-07-2023 take 1 tablet by mouth three times daily as needed for muscle spasms Cyclobenzaprine 10 mg tablet Discontinued 10 MG PO Three times daily as needed for Muscle Spasm March 20, 2023 11:00pm May 07, 2023 8:22am 0.4 ml enoxaparin sodium 100 mg/ml prefilled syringe (1 source) Low Molecular Weight Heparin Start: 04-10-2024 inject 40 mg by subcutaneous injection every twenty-four hours 40 mg, subcutaneous, Every 24 hours, First dose on Lynda 04/10/24 at 0000, Phase II/On Unit, Indications: deep vein thrombosis prevention 1 ml galcanezumab-gnlm 120 mg/ml auto-injector (7 sources) Emgality 120 MG/ML as directed Subcutaneous Active glucagon (rdna) 1 mg injection (2 sources) Antihypoglycemic Agent Start: 04-09-2024 50 ml glucose 500 mg/ml prefilled syringe (2 sources) Start: 04-09-2024 1 ml HYDROmorphone hydrochloride 0.2 mg/ml prefilled syringe (3 sources) Opioid Agonist Start: 04-09-2024 take 0.2 mg intravenously every four hours as needed Start: 04-09-2024 End: 04-09-2024 0.5 mg, intravenous, Every 5 min PRN, pain severe (7-10), first line, Starting on Sun04/09/24 at 1649, Recovery (only), Max total of 4 mg regardless of dose. Start: 04-09-2024 End: 04-09-2024 0.2 mg, intravenous, Every 5 min PRN, pain moderate (4-6), first line, Starting on Sun04/09/24 at 1649, Recovery (only), Max total of 4 mg regardless of dose. hydrOXYzine hydrochloride 25 mg oral tablet (20 sources) Antihistamine Start: 05-26-2022 End: 09-05-2023 take 1-2 tablets by mouth at bedtime hydrOXYzine HCl (Atarax) 25 MG tablet hydroxyzine HCl 25 mg tablet take 1 to 2 tablets by mouth at bedtime if needed 05/26/2022 Active Comment on above: take 1 to 2 tablets by mouth at bedtime if needed ibuprofen 800 mg oral tablet (20 sources) Nonsteroidal Anti-inflammatory Drug Start: 08-02-2023 End: 09-05-2023 take 1 tablet by mouth three times daily as needed Ibuprofen 800 mg tablet Active 800 MG PO Three times daily as needed September 05, 2023 12:35pm FreeTextSi tablet with food or milk as needed Orally Three times a day; Note: Source Status: TakingPRN; Provider: Nelida Camara ( ) Start: 04-17-2022 End: 07-17-2022 take 1 tablet by mouth every eight hours as needed for pain Ibuprofen 600 mg tablet Discontinued 600 MG PO Q8H as needed for pain April 16, 2022 11:00pm July 17, 2022 [...] in the MR contrast administration guidelines link methocarbamol 750 mg oral tablet (20 sources) Muscle Relaxant Start: 05-21-20 24 End: 06-20-19 25 take 1 tablet by mouth once daily at bedtime Methocarbamol 750 mg tablet Active 750 MG PO Daily at bedtime July 03, 2024 12:00am Start: 12-03-2023 End: 04-28-2024 methocarbamol (Robaxin) 500 MG tablet 12/03/2023 Active Start: 12-03-2023 End: 12-03-2023 Methocarbamol Discontinued M G PO December 03, 2023 12:00am December 03, 2023 10:59am mirtazapine 15 mg oral tablet (20 sources) Start: 09-01-2022 End: 10-29-2023 take 0.5 tablet by mouth at bedtime mirtazapine (Remeron) 15 MG tablet mirtazapine 15 mg tablet take 1/2 tablet by mouth at bedtime 09/01/2022 Active Start: 09-01-2022 End: 10-29-2023 take 1 tablet by mouth once daily at bedtime as needed Mirtazapine 15 mg tablet Active 15 MG PO Daily at bedtime as needed October 29, 2023 9:18am Start: 07-17-2022 End: 08-02-2023 take 1 tablet by mouth at bedtime as needed Mirtazapine 7.5 mg Tablet Discontinued 7.5 MG PO Bedtime as needed for Insomnia July 17, 2022 12:00am August 02, 2023 12:49pm Comment on above: Take by mouth daily at bedtime. Multiple Vitamin (MULTIVITAMIN ADULT PO) (6 sources) take 1 capsule by mouth in the morning Multiple Vitamin (MULTIVITAMIN ADULT PO) Take 1 capsule by mouth in the morning. Active take 1 capsule by mouth in the m orning Multiple Vitamin (MULTIVITAMIN ADULT PO) Take 1 capsule by mouth in the morning. 0 Active Multiple Vitamin - (20 sources) take 1 tablet by mouth once daily Multiple Vitamin - 1 tablet Orally Once a day Active Multivitamin (Multiple Vitamins) tablet (12 sources) Start: 08-02-2023 take 1 tablet by mouth once daily Multivitamin (Multiple Vitamins) tablet Active 1 TAB PO Daily August 02, 2023 1:00am Start: 08-02-2023 take 1 tablet by myles once daily Multivitamin (Multiple Vitamins) tablet Active 1 TAB PO Daily August 02, 2023 12:00am Multivitamin capsule (13 sources) take 1 capsule by mo ut once daily Multivitamin capsule Take 1 capsule by mouth once daily. Active take 1 capsule by mouth once danitza ly Multivitamin capsule Take 1 capsule by mouth once daily. 0 Active Comment on above: Take 1 capsule by mo ut once daily. Naloxone (1 source) Opioid Antagonist Start: 04-09-20 24 24 hr nicotine 0.875 mg/hr transdermal system (4 sources) Cholinergic Nicotinic Agonist Start: 08-14-19 apply 1 dose transdermal route every twenty-four hours nicotine (Nicoderm CQ) 21 MG/24HR patch Indications: Cigarette nicotine dependence with nicotine-induced disorder Place 1 patch over 24 hours on the skin 1 (one) time each day at the same time Apply 21 mg daily x 6 weeks then apply 14 mg patch daily x 2 weeks then apply 7 mg patch daily x 2 weeks, stop cigarette use at treatment onset 44 patch 08/14/2023 Active Ondansetron (1 source) Serotonin-3 Receptor Antagonist Start: 04-09-20 take 1 tablet by mouth every eight hours as needed ondansetron (Zofran) tablet 4 mg oxyCODONE hydrochloride 10 mg oral tablet (3 sources) Opioid Agonist Start: 04-09-20 take 1 tablet by mouth every four hours as needed Start: 04-09-2024 take 1 tablet by myles th every four hours as needed Start: 04-09-2024 take 1 tablet by myles th every four hours as needed 10 mg, oral, Every 4 hours PRN, pain severe (7-10), first line, Starting on Sun04/09/24 at 1857, Phase II/On Unit, If ordered PRN for pain, nurse is permitted to administer this medication for higher pain scores based on patient preference? Yes polyethylene glycol 3350 41825 mg powder for oral solution (1 source) Osmotic Laxative Start: 04-09-2024 17 g, oral, 2 times daily, First dose on Sun04/09/24 at 2100, Phase II/On Unit, Bowel Regimen - for prevention of constipation. pravastatin sodium 40 mg oral tablet (20 sources) HMG-CoA Reductase Inhibitor Start: 11-05-2023 take 1 tablet by mouth once daily Pravastatin 40 mg tablet Active 0 .ROUTE .COMPLEX 90 November 05, 2023 9:42am take 1 tablet by mouth once daily Start: 07-06-2023 End: 11-05-2023 take 1 tablet by mouth at bedtime pravastatin (Pravachol) 40 MG tablet Take 40 mg by mouth at bedtime 07/06/2023 Active Start: 05-15-2023 take 1 tablet by myles th every twenty-four hours Pravastatin Sodium 40 MG 1 tablet Orally Once a day for 90 days Apr, Active pregabalin 50 mg oral capsule (3 sources) Start: 06-30-2024 End: 07-30-2024 take 1 capsule by mouth once daily Pregabalin 50 mg capsule Active 50 MG PO Daily July 03, 2024 12:00am Start: 06-30-2024 End: 07-30-2024 take 1 capsule by mouth twice daily pregabalin (Lyrica) 50 mg capsule Indications: Status post cervical spinal fusion Take 1 capsule (50 mg) by mouth 2 times a day. 60 capsule 06/30/2024 07/30/2024 Active rosuvastatin calcium 5 mg oral tablet (20 sources) HMG-CoA Reductase Inhibitor Start: 05-31-2023 End: 08-02-2023 take 1 tablet by mouth in the morning rosuvastatin (Crestor) 5 MG tablet Take 5 mg by mouth in the morning. 06/27/2023 Active terbinafine hydrochloride 10 mg/ml topical cream (10 sources) Allylamine Antifungal Start: 12-03-2023 Terbinafine Hcl 1 % cream Active APPLIC TOPICAL December 02, 2023 11:00pm Start: 12-03-2023 Terbinafine Hc l Active APPLIC TOPICAL December 03, 2023 12:00am Start: 11-28-2023 terbinafine (L amISIL AT) 1 % cream Indications: Tinea manuum Apply to the affected area on the hand, bid, 30 day supply 42 g 1 11/28/2023 Active tiZANidine 4 mg oral tablet (20 sources) Central alpha-2 Adrenergic Agonist Start: 04-09-2024 take 4 mg by mouth once daily 4 mg, oral, Nightly, First dose on Sun04/09/24 at 2100, Phase II/On Unit Start: 08-29-2022 End: 12-03-2023 take 1 tablet by mouth once daily at bedtime Tizanidine (Zanaflex) 4 mg tablet Discontinued 4 MG PO Daily at bedtime August 02, 2023 12:00am December 03, 2023 9:58am FreeTextSi tablet as needed Orally at bedtime; Note: Source Status: Taking; Provider: Satish Rogers Start: 04-17-2022 End: 04-10-2024 take 1 capsule by mouth twice daily tiZANidine (Zanaflex) 4 MG capsule Indications: Cervical stenosis of spinal canal tizanidine 4 mg capsule take 1 capsule by mouth twice a day if needed for MUSCLE SPASTICITY 60 capsule 11 01/30/2023 Active Start: 04-06-2022 End: 08-02-2023 take 2 tablets by mouth at bedtime Tizanidine 4 mg tablet Discontinued 8 MG PO Bedtime April 05, 2022 11:00pm August 02, 2023 12:50pm Start: 04-06-2022 End: 08-02-2023 take 8 mg [...] 01-Nov-2021 Active take 1 capsule by mo [facility] once daily at bedtime tiZANidine (Zanaflex) 4 mg capsule Take 1 capsule (4 mg) by mouth once daily at bedtime. Active Comment on above: Take 4 mg by mouth a t bedtime as needed. vortioxetine 5 mg oral tablet (2 sources) [...] on above: take 1 tablet by myles every 4 to 6 hours if needed for headache or migraines for 30 DAYS acetaminophen 300 mg / codeine phosphate 30 mg oral tablet (14 sources) Opioid Agonist Start: 05-07-2023 End: 08-02-2023 take 1 tablet by mouth twice daily as needed for pain Acetaminophen-Code ine 300-30 mg tablet Discontinued 1 TAB PO Twice daily as needed for Pain May 07, 2023 12:00am August 02, 2023 12:44pm acetaminophen 300 mg / HYDROcodone bitartrate 7.5 mg oral tablet (20 sources) Opioid Agonist Start: 04-01-2024 End: 04-28-2024 take 1 tablet by mouth twice daily Hydrocodone-Acetam inophen 7.5-300 mg tablet Discontinued 1 TAB PO Twice daily March 31, 2024 11:00pm April 28, 2024 9:44am Start: 09-05-2023 End: 04-01-2024 take 1 tablet by mouth every eight hours as needed Hydrocodone-Acetaminophen 5-325 mg table t Discontinued TAB PO Every 8 hours as needed September 04, 2023 11:00pm April 01, 2024 10:01am Start: 06-04-2023 take 1 tablet by myles th once daily as needed for pain HYDROcodone-acetaminophen (Calvin) 5-325 MG tablet take 1 tablet orally daily NEEDED FOR PAIN MUST LAST 30 DAYS 10/10/2023 Active Start: 12-10-2017 End: 04-29-2018 take 1 tablet by mouth every four hours Hydrocodone-Acetaminophen (Calvin) 5-325 mg tablet Discontinued 1 TAB PO Q4H December 10, 2017 April 29, 2018 2:12pm End: 04-10-2024 take 1.5 tablets by mouth twice daily as needed for pain HYDROcodone-acetaminophen (Calvin) 5-325 mg tablet Take 1.5 tablets by mouth 2 times a day as needed for severe pain (7 - 10). 04/10/2024 Discontinued (Stop Taking at Discharge) acetaZOLAMIDE 250 mg oral tablet (20 sources) Carbonic Anhydrase Inhibitor Start: 08-31-2022 End: 04-10-2024 take 1 tablet by mouth once daily in the morning, then take 2 tablets by mouth at bedtime acetaZOLAMIDE (DIAMOX) 250 mg tablet take 1 tablet by mouth every morning and AFTERNOON and 2 at bedtime as directed 0 08/31/2022 Active End: 04-10-2024 take 1 tablet by mouth every twenty-four hours acetaZOLAMIDE (Diamox) 250 mg tablet Take by mouth once every 24 hours. 04/10/2024 Discontinued (Therapy completed) take 1 tablet by myles th every twelve hours acetaZOLAMIDE 125 MG 1 tablet Orally Twice a day Active Comment on above: take 1 tablet by myles th every morning and AFTERNOON and 2 at bedtime as directed ALPRAZolam 0.25 mg oral tablet (20 sources) Benzodiazepine Start: End: take 1 tablet by mouth once daily Alprazolam (Xanax) 0.25 mg tablet Discontinued 0.25 MG PO Daily January 30, 2024 11:00pm April 01, 2024 10:01am Start: 09-12-2021 take 1 tablet by myles [...] mg / clavulanate 125 mg oral tablet (19 sources) Penicillin-class Antibacterial Start: 02-27-20 End: 05-07-20 take 1 tablet by mouth twice daily Amoxicillin-Pot Clavulanate 875-125 mg tablet Discontinued 1 TAB PO Twice daily February [...] cream (20 sources) Azole Antifungal, Corticosteroid Start: 03-08-2023 End: 08-02-2023 Clotrimazole-Betamethas one 1-0.05 % cream Discontinued 1 APPLIC TOPICAL Twice daily August 02, 2023 12:00am August 02, 2023 12:47pm FreeTextSi application Externally Twice a day; Note: Source Status: Not-TakingundefinedPRN; Refills: 1; Qty: 45 grams; Provider: Nelida Driver bupivacaine hydrochloride 5 mg/ml injectable solution (4 sources) Amide Local Anesthetic Start: 07-03-2024 End: 07-02-2024 bupivacaine (Marcaine) 0.5 % injection 5 mg Start: 07-03-2024 End: 07-02-2024 5 mg (1 mL), Injection, Once , On Lynda 07/03/24 at 1045, For 1 dose Start: 05-22-2024 End: 05-21-2024 bupivacaine (Marcaine) 0.5 % injection 5 mg Start: 05-22-2024 End: 05-21-2024 5 mg (1 mL), Injection, Once , On Lynda 05/22/24 at 1330, For 1 dose 12 hr buPROPion hydrochloride 150 mg extended release oral tablet (10 sources) Aminoketone Start: 02-28-2019 End: 10-17-2022 take 1 tablet by mouth twice daily buPROPion SR (WELLBUTRIN SR) 150 mg 12 hr tablet Take 1 tablet by mouth twice daily. 60 tablet 2 02/28/2019 10/17/2022 Discontinued Comment on above: Take 1 tablet by [facility] twice daily. dexamethasone phosphate 4 mg/ml injectable solution (18 sources) Corticosteroid Start: 07-03-2024 End: 07-02-2024 dexAMETHasone sod phos (Decadron) injection 4 mg Start: 07-03-2024 End: 07-02-2024 4 mg (1 mL), Injection, Once , On Lynda 07/03/24 at 1045, For 1 dose Start: 05-22-2024 End: 05-21-2024 dexAMETHasone (Decadron) injection 4 mg Start: 05-22-2024 End: 05-21-2024 inject 4 mg by intramuscular injection once 4 mg, Intramuscular, Once, On Lynda 05/22/24 at 1330, For 1 dose Start: 04-09-2024 End: 04-10-2024 6 mg, intravenous, Once, On Sun04/09/24 at 2215, For 1 dose Start: 12-03-2023 End: 05-31-2024 dexAMETHasone (Decadron) 2 M G tablet Indications: Cervical stenosis of spinal canal 2mg 3 pills po X3 days,2 pills po daily X3 days , then 1 pill po daily X3 days then stop 9 days 18 pills 18 tablet 1 05/21/2024 Active Start: 12-03-2023 Dexamethasone Active MG PO December 03, 2023 12:00am Start: 06-14-2023 dexAMETHasone (Decadron) 2 MG tablet Indications: Cervical radiculopathy , Cervical stenosis of spinal canal , Occipital neuralgia of left side 2mg 3 pills po X3 days,2 pills po daily X3 days , then 1 pill po daily X3 days then stop 9 days 18 pills 18 tablet 0 06/14/2023 Active doxycycline monohydrate 100 mg oral capsule (10 sources) Tetracycline-class Drug Start: 11-05-2018 End: 10-17-2022 take 1 capsule by mouth every twelve hours doxycycline monohydrate (MONODOX) 100 mg capsule TAKE 1 CAPSULE BY MOUTH EVERY 12 HOURS FOR 10 DAYS 0 11/05/2018 10/17/2022 Discontinued Comment on above: TAKE 1 CAPSULE BY MO [facility] EVERY 12 HOURS FOR 10 DAYS DULoxetine 20 mg delayed release oral capsule (4 sources) Serotonin and Norepinephrine Reuptake Inhibitor take 1 capsule by mouth every twelve hours Cymbalta 20 MG 1 capsule Orally Twice a day Not-Taking ezetimibe 10 mg oral tablet (20 sources) Dietary Cholesterol Absorption Inhibitor Start: 11-05-2023 End: 04-28-2024 take 1 tablet by mouth once daily Ezetimibe 10 mg tablet Discontinued 0 .ROUTE .COMPLEX 90 November 05, 2023 9:42am April 28, 2024 9:44am take 1 tablet by mouth once daily Start: 09-05-2023 End: 09-05-2023 Ezetimibe Discontinued MG PO September 05, 2023 12:00am September 05, 2023 1:34pm Start: 06-08-2023 End: 11-05-2023 take 1 tablet by mouth in the morning ezetimibe (Zetia) 10 MG tablet Take 10 mg by mouth in the morning. 06/08/2023 Active Start: 05-15-2023 End: 08-02-2023 take 1 tablet by mouth every week Ezetimibe 10 mg tablet Discontinued MG PO August 02, 2023 12:00am August 02, 2023 12:47pm FreeTextSi tablet Orally 2 days per week; Note: Source Status: Not-TakingundefinedPRN; Provider: Kamla Ruiz Start: 05-15-2023 take 1 tablet by myles every twenty-four hours Ezetimibe 10 MG 1 tablet Orally Once a day for 90 days Apr, Active gabapentin 100 mg oral capsule (20 sources) Anti-epileptic Agent Start: 08-02-2023 End: 08-02-2023 take 1 capsule by mouth once daily Gabapentin 100 mg capsule Discontinued 100 MG PO Daily August 02, 2023 12:00am August 02, 2023 12:47pm FreeTextSi capsule Orally Once a day; Note: Source Status: Not-TakingundefinedPRN; Provider: Nelida Camara ( ) Start: 04-16-2023 End: 08-02-2023 take 1 capsule by mouth three times daily Gabapentin 300 mg capsule Discontinued 300 MG PO Three times daily May 07, 2023 12:00am August 02, 2023 12:47pm Start: 02-27-2019 End: 10-17-2022 take 1 capsule by mouth three times daily gabapentin (NEURONTIN) 300 mg capsule Take 1 capsule by mouth three times daily for 30 days. 90 capsule 02/27/2019 10/17/2022 Discontinued take 1 capsule by [facility] every twenty-four hours Gabapentin 100 MG 1 capsule Orally Once a day Not-Taking/PRN Comment on above: Take 1 capsule by [facility] three times daily for 30 days. gadoterate meglumine (Dotarem) 0.5 mmol/mL contrast injection 30 mL (1 source) Start: End: inject 30 mL intravenously once 30 mL, intravenous, Once in imaging, Starting on [facility] 12/13/23 at 0817, For 1 dose, Administer undiluted as rapid I.V. bolus injection indomethacin 75 mg extended release oral capsule (20 sources) Nonsteroidal Anti-inflammatory Drug Start: End: take 1 capsule by mouth once daily at mealtime Indomethacin 75 mg capsule, extended release Discontinued 75 MG PO Daily August 02, 2023 12:00am August 02, 2023 12:48pm FreeTextSi capsule with food Orally Once a day; Note: Source Status: Not-Takingundefined PRNprn; Provider: Nelida Camara ( ) Start: 07-17-2022 End: 11-02-2023 indomethacin (INDOCIN) 25 mg capsule Indomethacin Active 25 MG PO Daily July 17, 2022 1:00am 07/17/2022 11/02/2023 Discontinued (Discontinued by Patient) Start: 07-17-2022 End: 11-02-2023 take 1 capsule by mouth once daily Indomethacin 25 mg Capsule Discontinued 25 MG PO Daily July 17, 2022 12:00am August 02, 2023 12:48pm take 1 capsule by [facility] once daily at mealtime indomethacin SR (Indocin SR) 75 MG ER capsule indomethacin ER 75 mg capsule,extended release take 1 capsule by mouth once daily with food 0 Active take 1 capsule by [facility] every twenty-four hours Indomethacin ER 75 MG 1 capsule with food Orally Once a day prn Active Ketorolac (20 sources) Nonsteroidal Anti-inflammatory Drug, Cyclooxygenase Inhibitor Start: 01-27-2015 Toradol per 15 mg 12 Jan, 2015 2 mL lisinopril 10 mg oral tablet (20 sources) Angiotensin Converting Enzyme Inhibitor Start: 10-18-2023 End: 04-01-2024 take 1 tablet by mouth once daily Lisinopril 10 mg tablet Discontinued 10 MG PO Daily 90 90 November 29, 2023 12:20pm April 01, 2024 10:02am Start: 09-05-2023 End: 10-18-2023 take 1 tablet by mouth once daily lisinopril 5 MG tablet Take 5 mg by mouth Daily 09/05/2023 Active take 2 tablets by [facility] once daily lisinopril 5 mg tablet Take 2 tablets (10 mg) by mouth once daily. Active meclizine hydrochloride 25 mg oral tablet (20 sources) Antiemetic Start: 04-29-2018 End: 04-06-2022 take 1 tablet by mouth three times daily as needed for dizziness Meclizine 25 mg tablet Discontinued 25 MG PO Three times daily as needed for dizziness April 29, 2018 12:00am April 06, 2022 3:26pm methylPREDNISolone 4 mg oral tablet (20 sources) Corticosteroid Start: 08-02-2023 End: 08-02-2023 Methylprednisolone 4 mg tablets,dose pack Discontinued MG PO As Directed August 02, [...] 10 mg by mouth daily at bedtime. naproxen 500 mg oral tablet (20 sources) Nonsteroidal Anti-inflammatory Drug Start: 12-10-2017 End: 04-29-2018 take 1 tablet by mouth twice daily at mealtime Naproxen 500 mg tablet Discontinued 500 MG PO Twice daily December 09, 2017 11:00pm April 29, 2018 2:12pm administer with food or milk olmesartan medoxomil 20 mg oral tablet (14 sources) Angiotensin 2 Receptor Clara Start: 05-07-2023 End: 08-02-2023 Olmesartan 20 mg tablet Discontinued MG TABLET May 07, 2023 12:00am August 02, 2023 12:50pm Start: 05-07-2023 End: 08-02-2023 Olmesartan Discontinued MG T ABLET May 07, 2023 1:00am August 02, 2023 1:50pm oxygen (O2) therapy (1 source) Start: 04-09-2024 End: 04-09-2024 inhalation, Continuous - Inhalation, First dose on Sun04/09/24 at 1715, Recovery (only), Device: Nasal Cannula, Rate in liters per minute: Other, Custom Value: 1-6 LPM, Keep O2 Sat Above: 92% predniSONE 10 mg oral tablet (20 sources) Start: 03-21-2023 End: 05-07-2023 Prednisone 10 mg tablet Discontinued 60 MG PO Daily March 20, 2023 11:00pm May 07, 2023 8:24am administer with food or milk Start: 03-21-2023 End: 05-07-2023 take 60 mg by mouth once daily at mealtime Prednisone Discontinued 60 MG PO Daily March 21, 2023 12:00am May 07, 2023 9:24am administer with food or milk Start: 04-06-2022 End: 07-17-2022 take 2 tablets by mouth once daily at mealtime Prednisone 20 mg tablet Discontinued 40 MG PO Daily April 05, 2022 11:00pm July 17, 2022 8:01am administer with food or milk Start: 04-06-2022 End: 07-17-2022 take 40 mg by mouth once daily at mealtime Prednisone Discontinued 40 MG PO Daily April 06, 2022 12:00am July 17, 2022 9:01am administer with food or milk promethazine hydrochloride 25 mg oral tablet (20 sources) Phenothiazine Start: 04-29-2018 End: 04-06-2022 take 1 tablet by mouth every six hours as needed for nausea Promethazine 25 mg Tablet Discontinued 25 MG PO Q6H as needed for Nausea September 07, 2021 11:00pm April 06, 2022 3:26pm take 1 tablet by myles th every [...] to dissolve Orally Ever Other Day Active SUMAtriptan 100 mg oral tablet (8 [...] (9 sources) Anti-epileptic Agent Start: 3 End: zonisamide (ZONEGRAN) 25 mg capsule take 1 [...] head, face and neck] Onset: 10-13-2021 Chronic Cancer; other and unspecified primary (3 sources) History of squamous cell carcinoma; Translations: [Personal history of malignant neoplasm of other sites] Episodic Cardiac dysrhythmias (20 sources) Cardiac arrhythmia; Translations: [Cardiac arrhythmia, unspecified] Onset: 10-16-2023 Chronic Cataract (12 sources) Age-related nuclear cataract of right eye; Translations: [Age-related nuclear cataract, right eye] Onset: 12-10-2022 12-10-2022 Chronic Conduction disorders (20 sources) First degree atrioventricular block; Translations: [Atrioventricular block, first degree] Onset: 10-16-2023 08-02-2023 Chronic Coronary atherosclerosis and other heart disease (5 sources) Coronary arteriosclerosis; Translations: [Atherosclerotic heart disease of [place] coronary artery without angina pectoris] Onset: 02-26-2024 02-26-2024 Chronic Disorders of lipid metabolism (20 sources) Hyperlipidemia; Translations: [Hyperlipidemia, unspecified] Onset: 09-19-2021 Resolved: 09-19-2021 Chronic Essential hypertension (20 sources) Essential hypertension; Translations: [Essential (primary) hypertension] Onset: 10-16-2023 Chronic Glaucoma (6 sources) Preglaucoma, unspecified, right eye; Translations: [Preglaucoma, unspecified] Onset: 12-29-2022 12-29-2022 Chronic Headache; including migraine (20 sources) Migraine; Translations: [Migraine, unspecified, not intractable, without status migrainosus] Onset: 12-10-2022 Chronic Headache; including migraine (20 sources) Headache; Translations: [Headache] Episodic Lymphadenitis (1 source) Enlarged lymph nodes, unspecified Episodic Malignant neoplasm without specification of site (11 sources) Primary malignant neoplasm; Translations: [Malignant (primary) neoplasm, unspecified] Onset: 2008 12-10-2022 Chronic Mood disorders (3 sources) Depressive disorder; Translations: [Depressive disorder, not elsewhere classified] Chronic Osteoarthritis (20 sources) Arthritis; Translations: [Unspecified osteoarthritis, unspecified site] Onset: 10-16-2023 08-02-2023 Chronic Osteoporosis (18 sources) Age-related osteoporosis without current pathological fracture; Translations: [Senile osteoporosis] Onset: 01-03-2024 Chronic Other and unspecified benign [...] the circulatory and respiratory systems Episodic Other connective tissue disease (2 sources) History of cervical spine fusion; Translations: [Arthrodesis status] 04-30-2024 Episodic Other connective tissue disease (1 source) Muscle spasm of cervical muscle of neck; Translations: [Other muscle spasm] 04-30-2024 Episodic Other connective tissue disease (2 sources) Arthrodesis status; Translations: [Arthrodesis status] Onset: 04-30-2024 Episodic Other connective tissue disease (2 sources) Other muscle spasm; Translations: [Other muscle spasm] Onset: 04-30-2024 Episodic Other ear and sense organ disorders (16 sources) Otalgia, left ear; Translations: [Left ear pain] Episodic Other ear and sense organ disorders (11 sources) Bilateral tinnitus; Translations: [Tinnitus, bilateral] Episodic Other ear and sense organ disorders (1 source) Tinnitus, bilateral Episodic Other hereditary and degenerative nervous system conditions (6 sources) Isolated cervical dystonia; Translations: [Spasmodic torticollis] Onset: 07-03-2023 07-03-2023 Chronic Other infections; including parasitic (7 sources) Personal history of other infectious and parasitic diseases; Translations: [History of COVID-19] 01-31-2024 Episodic Other lower respiratory disease (20 sources) Solitary nodule of lung; Translations: [Solitary pulmonary nodule] Episodic Other nervous system disorders (3 sources) Demyelinating disease of central nervous system; Translations: [Other demyelinating diseases of central nervous system] Chronic Other nervous system disorders (20 sources) Mass lesion of brain; Translations: [Other specified disorders of brain] Onset: 10-16-2023 08-02-2023 Chronic Other nervous system disorders (7 [...] Onset: 09-28-2022 Chronic Other nervous system disorders (6 sources) Brachial plexus disorder; Translations: [Brachial plexus disorders] Onset: 11-23-2022 11-23-2022 Chronic Other nervous system disorders (6 sources) Ulnar neuropathy; Translations: [Lesion of ulnar nerve, unspecified upper limb] Onset: 12-29-2022 12-29-2022 Chronic Other nervous system disorders (1 source) Lesion of brainstem; Translations: [Disorder of brain, unspecified] 10-05-2023 Chronic Other nervous system disorders (4 sources) Other specified disorders of brain; Translations: [Other conditions of brain] 10-29-2023 Chronic Other nervous system disorders (4 sources) Central pontine myelinolysis; 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] Onset: 08-29-2023 08-29-2023 Chronic Other nervous system disorders (5 sources) Disorder of nerve root and/or plexus; Translations: [Other nerve root and plexus disorders] Onset: 05-22-2024 05-22-2024 Chronic Other nervous system disorders (6 sources) Finding of sensation of upper limb; Translations: [Paresthesia of skin] Episodic Other nervous system disorders (2 sources) Anesthesia of skin Onset: 01-30-2022 Resolved: 01-30-2022 Episodic Other nervous system disorders (1 source) Other disturbances of skin sensation Episodic Other nervous system disorders (1 source) Acute postoperative pain; Translations: [Other acute postprocedural pain] 04-30-2024 Episodic Other nervous system disorders (2 sources) Other acute postprocedural pain; Translations: [Other acute postprocedural pain] Onset: 04-30-2024 Episodic Other non-epithelial cancer of skin (7 sources) Squamous cell carcinoma of skin; Translations: [Squamous cell carcinoma of skin, unspecified] 01-31-2024 Episodic Comment on above: head/neck Other non-traumatic joint disorders (20 sources) Joint pain; Translations: [Pain in unspecified joint] 08-02-2023 Episodic Other non-traumatic joint disorders (1 source) [...] and lump, neck] Episodic Other skin disorders (1 source) Dyshidrosis [...] sinusitis, unspecified] Onset: 06-30-2021 Resolved: 06-30-2021 Chronic Peripheral and visceral atherosclerosis (20 sources) Intermittent claudication; Translations: [Peripheral vascular disease, unspecified] Onset: 09-05-2023 Chronic Residual codes; unclassified (2 sources) Insomnia, unspecified Episodic Residual codes; unclassified (1 source) History of cervical discectomy; Translations: [Other specified postprocedural states] 07-03-2024 Episodic Residual codes; unclassified (1 source) Other specified postprocedural states; Translations: [Other postprocedural status] 07-03-2024 Episodic Secondary malignancies (3 sources) Metastasis to head and neck lymph node; Translations: [Secondary and unspecified malignant neoplasm of lymph nodes of head, face, and neck] Chronic Secondary malignancies (2 sources) Secondary malignant neoplastic disease; Translations: [Other malignant neoplasm without specification of site] Chronic Secondary malignancies (6 sources) Secondary malignant neoplasm of lymph node; [...] [Transient cerebral ischemic attack, unspecified] Chronic Unclassified (7 sources) Patient has spine surgery Onset: 01-09-2024 01-09-2024 Unclassified (3 sources) History of cervical spine fusion 04-30-2024 Unclassified (1 source) Other specified cough; Translations: [Other specified cough] Onset: 10-09-2023 Viral infection (5 sources) Respiratory syncytial virus infection; Translations: [Other specified viral diseases] Episodic Past or Other Problems Problem Classification Problem Date Documented Date Episodic/Chronic Blindness and vision defects (7 sources) Unspecified visual disturbance; Translations: [Visual disturbance] Onset: 01-30-2022 Resolved: 01-30-2022 Episodic Cancer of head and neck (20 sources) History of malignant neoplasm of head and/or neck; Translations: [Personal history of malignant neoplasm of unspecified site of lip, oral cavity, and pharynx] Onset: 10-16-2023 08-02-2023 Episodic Conditions associated with dizziness or vertigo (20 sources) Lightheadedness; Translations: [Dizziness and giddiness] Onset: 12-10-2022 Episodic Encephalitis (except that caused by tuberculosis or sexually transmitted disease) (4 sources) Myelitis; Translations: [Myelitis, unspecified] Onset: 08-29-2023 08-29-2023 Episodic Headache; including migraine (3 sources) Headache; including migraine Onset: 11-01-2021 Resolved: 01-30-2022 Malaise and fatigue (6 sources) Asthenia; Translations: [Weakness] Onset: 12-29-2022 12-29-2022 Episodic Other and unspecified benign neoplasm (6 sources) Schwannoma; Translations: [Benign neoplasm of peripheral nerves and autonomic nervous system, unspecified] Onset: 12-10-2022 12-10-2022 Episodic Other connective tissue disease (6 sources) Muscle pain; Translations: [Myalgia, unspecified site] Onset: 12-10-2022 12-10-2022 Episodic Other connective tissue disease (6 sources) Pain in left arm; Translations: [Pain in left arm] Onset: 12-29-2022 12-29-2022 Episodic Other connective tissue disease (7 sources) Spasm of cervical paraspinous muscle; Translations: [Other muscle spasm] Onset: 12-29-2022 12-29-2022 Episodic Other connective tissue disease (6 sources) Radicular pain; Translations: [Neuralgia and neuritis, unspecified] Onset: 04-04-2023 04-04-2023 Episodic Other lower respiratory disease (20 sources) Multiple nodules of lung; Translations: [Other nonspecific abnormal finding of lung field] Onset: 10-13-2021 Episodic Other lower respiratory disease (12 sources) Productive cough ; Translations: [Productive cough] Onset: 10-16-2023 10-08-2023 Episodic Other nervous system disorders (20 sources) Paresthesia of left lower limb; Translations: [Paresthesia of skin] Onset: 10-16-2023 08-02-2023 Episodic Other nervous system disorders (20 sources) Skin sensation disturbance; Translations: [Anesthesia of skin] Onset: 12-29-2022 12-29-2022 Episodic Other nervous system disorders (20 sources) Burning sensation; Translations: [Other disturbances of skin sensation] Onset: 10-16-2023 08-02-2023 Episodic Other nervous system disorders (20 sources) Impairment of balance; Translations: [Other abnormalities of gait and mobility] Onset: 12-10-2022 12-10-2022 Episodic Other nervous system disorders (8 sources) Other abnormalities of gait and mobility; Translations: [Other symptoms involving nervous and musculoskeletal systems] Onset: 12-12-2023 Episodic Other non-traumatic joint disorders (6 sources) Pain in left shoulder; Translations: [Pain in joint, shoulder region] Onset: 07-23-2023 Episodic Other screening for suspected conditions (not mental disorders or infectious disease) (20 sources) Encounter for screening for malignant neoplasm of prostate; Translations: [Magnetic resonance imaging of brain abnormal] Onset: 09-19-2021 Resolved: 09-19-2021 Episodic Other skin disorders (20 sources) Vesicular eczema; 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]] Onset: 10-16-2023 08-02-2023 Episodic Other upper respiratory disease (1 source) Nasal congestion Onset: 04-19-2021 Resolved: 04-19-2021 Episodic Other upper respiratory infections (14 sources) Acute pharyngitis, unspecified; Translations: [Acute sinusitis] Onset: 10-09-2023 Episodic Otitis media and related conditions (20 sources) Acute transudative otitis media; Translations: [Other acute nonsuppurative otitis media, left ear] Onset: 10-16-2023 02-26-2023 Episodic Residual codes; unclassified (1 source) Other general symptoms and signs Onset: 01-30-2022 Resolved: 01-30-2022 Episodic Residual codes; unclassified (20 sources) Insomnia; Translations: [Insomnia, unspecified] Onset: 12-10-2022 12-10-2022 Episodic Unclassified (1 source) Pressure in head R51.9 Onset: 12-26-2021 Resolved: 12-26-2021 Unclassified (1 source) Cough R05.9 Unclassified (1 source) Acute cough R05.1 Unclassified (12 sources) Onset: 10-05-2023 Resolved: 06-30-2024 10-05-2023 Results Test Name Value Interpretation Reference Range Facility X-ray reportOrdered By: Yehuda Pozo on 06-24-2024 Study report [facility] [place] [address] XRay Report Signed Patient: Jovani Melendez MR#: [id number] : 1960 Acct:[id number] Age/Sex: 63 / M ADM Date: 5 Loc: XD Room: Type: [facility] Attending Dr: Solomon Narayanan PA-C Copies to: Solomon DAUGHERTY~ Ordering Provider: Solomon DAUGHERTY Date of Service: 06/24/24 XR/XR cervical spine LAT/FLX/EXT: M54.12, Z98.1 CERVICAL SPINE 3 views: CLINICAL HISTORY: Postop ACF COMPARISON: None FINDINGS: Hardware fixation C5-C7 without hardware complication. There appears to be associated prevertebral soft tissue swelling. No pathological motion on flexionor extension views. XR/XR cervical spine LAT/FLX/EXT IMPRESSION: HARDWARE FIXATION INVOLVING C5-C7 WITHOUT HARDWARE COMPLICATION. THERE APPEARS TO BE ASSOCIATED PREVERTEBRAL SOFT TISSUE SWELLING. Impression dictated by: Yung Pozo Jr., D.O.06/24/2024 8:08 PM Dictation Location: RADIO-PC-18 Transcribed By: MARISA 06/24/242007 Dictated By: Yung Pozo Jr, DO 06/24/242005 Signed By: 06/24/242007 [facility] XR cervical spine LAT/FLX/EX Ton 06-24-2024 XR cervical spine LAT/FLX/EXT [facility] [place] [address] XRay Report Signed Patient: Jovani Melendez MR#: [id number] : 1960 Acct:[id number] Age/Sex: 63 / M ADM Date: 06/24/24 Loc: XD Room: Type: [facility] Attending Dr: Solomon Narayanan PA-C Copies to: Solomon Narayanan PAC Ordering Provider: Solomon Narayanan PAC Date of Service: 06/24/24 XR/XR cervical spine LAT/FLX/EXT: M54.12, Z98.1 CERVICAL SPINE 3 views: CLINICAL HISTORY: Postop ACF COMPARISON: None FINDINGS: Hardware fixation C5-C7 without hardware complication. There appears to be associated prevertebral soft tissue swelling. No pathological motion on flexion or extension views. XR/XR cervical spine LAT/FLX/EXT IMPRESSION: HARDWARE FIXATION INVOLVING C5-C7 WITHOUT HARDWARE COMPLICATION. THERE APPEARS TO BE ASSOCIATED PREVERTEBRAL SOFT TISSUE SWELLING. Impression dictated by: Yung Pozo Jr., D.O.06/24/2024 8:08 PM Dictation Location: RADIO-PC-18 Transcribed By: MARISA 06/24/242007 Dictated By: Yung Pozo Jr, DO 06/24/242005 Signed By: 06/24/242007 Normal [facility] Basic metabolic 2000 panelon 04-10-2024 Anion gap [Moles/Vol] 14 mmol/L 10 - 2 0 mmol/L [facility] Calcium [Mass/Vol] 9 mg/dL 8.6 - 10. 6 mg/dL [facility] Chloride [Moles/Vol] 103 mmol/L 98 - 10 7 mmol/L [facility] CO2 [Moles/Vol] 26 mmol/L 21 - 32 mmol/L [facility] Creatinine [Mass/Vol] 0.86 mg/dL 0.50 - 1.30 mg/dL [facility] eGFR - PINF [facility] Comment on above: Calculations of sandra mated GFR are performed using the 2020 CKD-EPI Study Refit equation without the race variable for the IDMS-Traceable creatinine methods. https://jasn.asnjournals.org/content//ASN.93804 64651 Glucose [Mass/Vol] 159 mg/dL High 74 - 99 mg/dL [facility] Interpretation and review of laboratory results Abnormal [facility] Potassium [Moles/Vol] 4.5 mmol/L 3.5 - 5.3 mmol/L [facility] Sodium [Moles/Vol] 138 mmol/L 136 - 145 mmol/L [facility] Urea nitrogen [Mass/Vol] 14 mg/dL 6 - 23 mg/dL [facility] Anion gap [Moles/Vol] 14 mmol/L Normal 10-20 [facility] Comment on above: Performed By: #### 2 4321-2 ####TITUS Mercado ([id number])[facility] ([facility])[address] [place] [address] Calcium [Mass/Vol] 9.0 mg/dL Normal 8.6-10.6 [facility] Comment on above: Performed By: #### 2 4321-2 ####TITUS Mercado ([id number])[facility] ([facility])[address] [place] [address] Chloride [Moles/Vol] 103 mmol/L Normal 98-107 [facility] Comment on above: Performed By: #### 2 4321-2 ####TITUS Mercado ([id number])[facility] ([facility])[address] [place] [address] CO2 [Moles/Vol] 26 mmol/L Normal 21-32 [facility] Comment on above: Performed By: #### 2 4321-2 ####TITUS Mercado ([id number])[facility] ([facility])[address] [place] [address] Creatinine [Mass/Vol] 0.86 mg/dL Normal 0.50-1.30 [facility] Comment on above: Performed By: #### 2 4321-2 ####TITUS Mercado ([id number])[facility] ([facility])[address] [place] [address] GFR/1.73 sq M.predicted MDRD (S/P/Bld) [Vol rate/Area] mL/min/{1.73_m2} Normal >60 [facility] Comment on above: Result Comment: Calc ulations of estimated GFR are performed using the 2020 CKD-EPI Study Refit equation without the race variable for the IDMS-Traceable creatinine methods. https://jasn.asnjournals.org/content/early//ASN.11208 52028 Performed By: #### 2 4321-2 ####TITUS Mercado ([id number])[facility] ([facility])[address] [place] [address] Glucose [Mass/Vol] 159 mg/dL High 74-99 [facility] Comment on above: Performed By: #### 2 432-2 ####TITUS Mercado ([id number])[facility] ([facility])[address] [place] [address] Potassium [Moles/Vol] 4.5 mmol/L Normal 3.5-5.3 [facility] Comment on above: Performed By: #### 2 4321-2 ####TITUS Mercado ([id number])[facility] ([facility])[address] [place] [address] Sodium [Moles/Vol] 138 mmol/L Normal 136-145 [facility] Comment on above: Performed By: #### 2 4321-2 ####TITUS Mercado ([id number])[facility] ([facility])[address] [place] [address] Urea nitrogen [Mass/Vol] 14 mg/dL Normal 6-23 [facility] Comment on above: Performed By: #### 2 4321-2 ####TITUS Mercado ([id number])[facility] ([facility])[address] [place] [address] CBC panel Auto (Bld)on 04-10 Erythrocyte distribution width (RBC) [Ratio] 13.3 % 11.5 - 14.5 % [facility] Hematocrit (Bld) [Volume fraction] 38 % Low 41.0 - 52.0 % [facility] Hemoglobin (Bld) [Mass/Vol] 12.9 g/dL Low 13.5 - 17.5 g/dL [facility] Interpretation and review of laboratory results Abnormal [facility] MCH (RBC) [Entitic mass] 31.9 pg 26.0 - 34.0 pg [facility] MCHC (RBC) [Mass/Vol] 33.9 g/dL 32.0 - 36.0 g/dL [facility] MCV (RBC) [Entitic vol] 94 fL 80 - 100 fL [facility] Nucleated RBC/100 WBC (Bld) [Ratio] 0 % [facility] Platelets (Bld) [#/Vol] 221 10*3/uL [facility] RBC (Bld) [#/Vol] 4.05 10*6/uL Low [facility] WBC (Bld) [#/Vol] 9.6 10*3/uL [facility] Erythrocyte distribution width (RBC) [Ratio] 13.3 % Normal 11.5-14.5 [facility] Comment on above: Performed By: #### 5 8410-2 ####TITUS Mercado ([id number])[facility] ([facility])[address] [place] [address] Hematocrit (Bld) [Volume fraction] 38.0 % Low 41.0-52.0 [facility] Comment on above: Performed By: #### 5 8410-2 ####TITUS Mercado ([id number])[facility] ([facility])[address] [place] [address] Hemoglobin (Bld) [Mass/Vol] 12.9 g/dL Low 13.5-17.5 [facility] Comment on above: Performed By: #### 5 8410-2 ####TITUS Mercado ([id number])[facility] ([facility])[address] [place] [address] MCH (RBC) [Entitic mass] 31.9 pg Normal 26.0-34.0 [facility] Comment on above: Performed By: #### 5 8410-2 ####TITUS Mercado ([id number])[facility] ([facility])[address] [place] [address] MCHC (RBC) [Mass/Vol] 33.9 g/dL Normal 32.0-36.0 [facility] Comment on above: Performed By: #### 5 8410-2 ####TITUS Mercado ([id number])[facility] ([facility])[address] [place] [address] MCV (RBC) [Entitic vol] 94 fL Normal 80-100 [facility] Comment on above: Performed By: #### 5 8410-2 ####TITUS Mercado ([id number])[facility] ([facility])[address] [place] [address] Nucleated RBC/100 WBC (Bld) [Ratio] 0.0 /100 WBCs Normal 0.0-0.0 [facility] Comment on above: Performed By: #### 5 8410-2 ####TITUS Mercado ([id number])[facility] ([facility])[address] [place] [address] Platelets (Bld) [#/Vol] 221 x10*3/uL Normal 150-450 [facility] Comment on above: Performed By: #### 5 8410-2 ####TITUS ORTIZTZER L (60225)[facility] ([facility])[address] [place] [address] RBC (Bld) [#/Vol] 4.05 x10*6/uL Low 4.50-5.90 [facility] Comment on above: Performed By: #### 5 8410-2 ####TITUS SCHMOTZER L ([id number])[facility] ([facility])[address] [place] [address] WBC (Bld) [#/Vol] 9.6 x10*3/uL Normal 4.4-11.3 [facility] Comment on above: Performed By: #### 5 8410-2 ####TITUS ORTIZTZER L ([id number])[facility] ([facility])[address] [place] [address] XR CERVICAL SPINE 2-3 VIEWSo n 04-10-2024 XR CERVICAL SPINE 2-3 VIEWS Interpreted By: Shubham Eubanks, STUDY: Cervical spine dated 04/10/2024. INDICATION: Signs/Symptoms:Post surgery COMPARISON: None. ACCESSION NUMBER(S): [id number] ORDERING CLINICIAN: CAMILLE HARRIS TECHNIQUE: Two views of the cervical spine. FINDINGS: The cervical spine is seen to C7/T1. There is C5-C7 anterior interbody fusion. Hardware is intact as visualized. Vertebral body height and alignment are maintained. No fracture or dislocation is evident. There is severe multilevel discogenic and facet degenerative change of the cervical spine. There is prominence of the prevertebral soft tissues. This is likely from recent surgery. A drain is seen at the right neck soft tissues. IMPRESSION: Surgical and degenerative change as above without osseous injury evident. MACRO: None Signed by: Shubham Eubanks 04/10/2024 10:05 AM Dictation workstation: [id number] [facility] Comment on above: Order Comment: JESSICA huerta cc'd to shant XR Cervical spine 2 or 3 Vie wson 04-10-2024 Surgical and degener ative change as above without osseous injury evident. MACRO: None Signed by: Shubham Eubanks 04/10/2024 10:05 AM Dictation workstation: [id number] MMODAL Interpreted By: Shubham Curran, STUDY: Cervical spine dated 04/10/2024. INDICATION: Signs/Symptoms:Post surgery COMPARISON: None. ACCESSION NUMBER(S): [id number] ORDERING CLINICIAN: CAMILLE HARRIS TECHNIQUE: Two views of the cervical spine. FINDINGS: The cervical spine is seen to C7/T1. There is C5-C7 anterior interbody fusion. Hardware is intact as visualized. Vertebral body height and alignment are maintained. No fracture or dislocation is evident. There is severe multilevel discogenic and facet degenerative change of the cervical spine. There is prominence of the prevertebral soft tissues. This is likely from recent surgery. A drain is seen at the right neck soft tissues. MMODAL Shubham Eubanks M D - 04/10/2024 Interpreted By: Shubham Eubanks, STUDY: Cervical spine dated 04/10/2024. INDICATION: Signs/Symptoms:Post surgery COMPARISON: None. ACCESSION NUMBER(S): [id number] ORDERING CLINICIAN: CAMILLE HARRIS TECHNIQUE: Two views of the cervical spine. FINDINGS: The cervical spine is seen to C7/T1. There is C5-C7 anterior interbody fusion. Hardware is intact as visualized. Vertebral body height and alignment are maintained. No fracture or dislocation is evident. There is severe multilevel discogenic and facet degenerative change of the cervical spine. There is prominence of the prevertebral soft tissues. This is likely from recent surgery. A drain is seen at the right neck soft tissues. IMPRESSION: Surgical and degenerative change as above without osseous injury evident. MACRO: None Signed by: Shubham Eubanks 04/10/2024 10:05 AM Dictation workstation: [id number] [facility] Work Phone: Radiology Study observation (narrative) [facility] Work Phone: XR Cervical spine 2 or 3 Vie wsOrdered By: Shubham Eubanks on 04-10-2024 [facility] Work Phone: Blood type and Indirect anti body screen panel (Bld)on 04-09-2024 ABO group Nom (Bld) A [facility] Blood group antibody screen Ql Negative [facility] D Ag Ql (Bld) Positive [facility] ABO group Nom (Bld) A Normal [facility] Comment on above: Order Comment: JESSICA huerta cc'd to jack Performed By: #### 3 4532-2 ####TITUS Mercado ([id number])[facility] ([facility])[address] [address] Blood group antibody screen Ql Negative [facility] Comment on above: Order Comment: JESSICA huerta cc'd to jack Performed By: #### 3 4532-2 ####TITUS Mercado ([id number])[facility] ([facility])[address] [place] [address] D Ag Ql (Bld) Positive [facility] Comment on above: Order Comment: JESSICA huerta cc'd to jack Performed By: #### 3 4532-2 ####TITUS Mercado ([id number])[facility] ([facility])[address] [place] [address] FL FLUORO IMAGES NO CHARGEon 04-09-2024 FL FLUORO IMAGES NO CHARGE These images are not reportable by radiology and will not be interpreted by Radiologists. Normal [facility] Gas and Carbon monoxide and Electrolytes panel (BldA)on 04-09-2024 Anion gap 4 (BldA) [Moles/Vol] 8 Low [facility] Base excess Calc (Bld) [Moles/Vol] -1.9000 mmol/L -2.0 - 3.0 mmol/L [facility] Calcium.ionized (BldA) [Moles/Vol] 1.24 mmol/L 1.10 - 1.33 mmol/L [facility] Chloride (BldA) [Moles/Vol] 104 mmol/L 98 - 107 mmol/L [facility] CO2 (Bld) [Partial pressure] 46 mm[Hg] High [facility] Glucose [Mass/Vol] 132 mg/dL High 74 - 99 mg/dL [facility] HCO3 (Bld) [Moles/Vol] 24.3 mmol/L 22.0 - 26.0 mmol/L [facility] Hematocrit Est (Bld) [Volume fraction] 39 % Low 41.0 - 52.0 % [facility] Hemoglobin (Bld) [Mass/Vol] 12.9 g/dL Low 13.5 - 17.5 g/dL [facility] Inhaled oxygen concentration 44 % [facility] Interpretation and review of laboratory results Abnormal [facility] Lactate (BldA) [Moles/Vol] 0.7 mmol/L 0.4 - 2.0 mmol/L [facility] Oxygen (Bld) [Partial pressure] 156 mm[Hg] High [facility] Oxyhemoglobin (BldA) [Mass fraction] 95 % 94.0 - 98.0 % [facility] pH (Bld) 7.33 [pH] Low 7.38 - 7.42 pH [facility] Potassium (BldA) [Moles/Vol] 4.5 mmol/L 3.5 - 5.3 mmol/L [facility] Sodium (BldA) [Moles/Vol] 132 mmol/L Low 136 - 145 mmol/L [facility] Anion gap 4 (BldA) [Moles/Vol] 8 mmo/L Low 10-25 [facility] Comment on above: Performed By: #### 9 3685-6 ####TITUS Mercado (78083)[facility] ([facility])[address] [place] [address] Base excess Calc (Bld) [Moles/Vol] -1.9000 mmol/L Normal -2.0-3.0 [facility] Comment on above: Performed By: #### 9 3685-6 ####TITUS Mercado (25437)[facility] ([facility])[address] [place] [address] Calcium.ionized (BldA) [Moles/Vol] 1.24 mmol/L Normal 1.10-1.33 [facility] Comment on above: Performed By: #### 9 3685-6 ####TITUS Mercado ([id number])[facility] ([facility])[address] [place] [address] Chloride (BldA) [Moles/Vol] 104 mmol/L Normal 98-107 [facility] Comment on above: Performed By: #### 9 3685-6 ####TITUS SOLORZANO L (87637)[facility] ([facility])[address] [place] [address] CO2 (Bld) [Partial pressure] 46 mm Hg High 38-42 [facility] Comment on above: Performed By: #### 9 3685-6 ####TITUS Mercado (25859)[facility] ([facility])[address] [place] [address] Glucose [Mass/Vol] 132 mg/dL High 74-99 [facility] Comment on above: Performed By: #### 9 3685-6 ####TITUS SOLORZANO L (82131)[facility] ([facility])[address] [place] [address] HCO3 (Bld) [Moles/Vol] 24.3 mmol/L Normal 22.0-26.0 [facility] Comment on above: Performed By: #### 9 3685-6 ####TITUS Mercado (62340)[facility] ([facility])[address] [place] [address] Hematocrit Est (Bld) [Volume fraction] 39.0 % Low 41.0-52.0 [facility] Comment on above: Performed By: #### 9 3685-6 ####TITUS SOLORZANO L (47696)[facility] ([facility])[address] [place] [address] Hemoglobin (Bld) [Mass/Vol] 12.9 g/dL Low 13.5-17.5 [facility] Comment on above: Performed By: #### 9 3685-6 ####TITUS Mercado ([id number])[facility] ([facility])[address] [place] [address] Inhaled oxygen concentration 44 % Normal [facility] Comment on above: Performed By: #### 9 3685-6 ####TITUS Mercado ([id number])[facility] ([facility])[address] [place] [address] Lactate (BldA) [Moles/Vol] 0.7 mmol/L Normal 0.4-2.0 [facility] Comment on above: Performed By: #### 9 3685-6 ####TITUS Mercado (71965)[facility] ([facility])[address] [place] [address] Oxygen (Bld) [Partial pressure] 156 mm Hg High 85-95 [facility] Comment on above: Performed By: #### 9 3685-6 ####TITUS Mercado (93091)[facility] ([facility])[address] [place] [address] Oxyhemoglobin (BldA) [Mass fraction] 95.0 % Normal 94.0-98.0 [facility] Comment on above: Performed By: #### 9 9945-6 ####TITUS Mercado (71232)[facility] ([facility])[address] [place] [address] pH (Bld) 7.33 [pH] Low 7.38-7.42 [facility] Comment on above: Performed By: #### 9 4605-6 ####TITUS Mercado (38279)[facility] ([facility])[address] [place] [address] Potassium (BldA) [Moles/Vol] 4.5 mmol/L Normal 3.5-5.3 [facility] Comment on above: Performed By: #### 9 2325-6 ####TITUS Mercado ([id number])[facility] ([facility])[address] [place] [address] Sodium (BldA) [Moles/Vol] 132 mmol/L Low 136-145 [facility] Comment on above: Performed By: #### 9 3685-6 ####TITUS Mercado ([id number])[facility] ([facility])[address] [place], [place] [address] XR tomography Unspecified monique dy regionon 04-09-2024 These images are not reportable by radiology and will not be interpreted by Radiologists. IMAGING CT TRANSFER OF OUTSIDE FILMS on 03-31-2024 CT TRANSFER OF OUTSIDE FILMS Outside images for comparison or treatment purposes, not interpreted by Radiologists. Normal [facility] Study Interpretation of outs jeffrey studyon 03-31-2024 Outside images for comparison or treatment purposes, not interpreted by Radiologists. IMAGING Blood type and Indirect anti body screen panel (Bld)on 03-26-2024 ABO group Nom (Bld) A Normal [facility] Comment on above: Performed By: #### 3 4532-2 #### TITUS Mercado ([id number]) [facility] ([facility]) [address] [place], [place] [address] Blood group antibody screen Ql Negative [facility] Comment on above: Performed By: #### 3 4532-2 #### TITUS Mercado (53258) [facility] ([facility]) [address] [place], [place] [address] D Ag Ql (Bld) Positive [facility] Comment on above: Performed By: #### 3 4532-2 #### TITUS Mercado ([id number]) [facility] ([facility]) [address] [place], [place] [address] DEXA BONE DENSITYon 02-13-20 24 DEXA BONE DENSITY These images are not reportable by radiology and will not be interpreted by Radiologists. [facility] DXA Skeletal system Views fo r bone densityon 02-13-2024 These images are not reportable by radiology and will not be interpreted by Radiologists. IMAGING XR CERVICAL SPINE COMPLETE 6 + VIEWSon 02-13-2024 XR CERVICAL SPINE COMPLETE 6+ VIEWS Interpreted By: Romulo Medrano, STUDY: XR CERVICAL SPINE COMPLETE 6+ VIEWS; ; 02/13/2024 11:10 am INDICATION: Signs/Symptoms:r/o instability, assess alignment. ,M54.12 Radiculopathy, cervical region COMPARISON: None. ACCESSION NUMBER(S): [id number] ORDERING CLINICIAN: CAMILLE HARRIS FINDINGS: C-spine, 6 views There is moderate [...] Romulo Medrano 02/19/2024 6:35 PM Dictation workstation: [id number] [facility] Comment on above: Order Comment: Pleas e obtain with flexion and extension XR CHEST 2 VIEWSon XR CHEST 2 VIEWS Interpreted By: Romulo Hubbard, STUDY: XR CHEST 2 VIEWS; 02/13/2024 11:10 am INDICATION: Signs/Symptoms:Preop surgery 02/[address] Steven MD. ,M54.12 Radiculopathy, cervical region,M81.0 Age-related osteoporosis without current pathological fracture COMPARISON: None. ACCESSION NUMBER(S): [id number] ORDERING CLINICIAN: CAMILLE HARRIS FINDINGS: CARDIOMEDIASTINAL SILHOUETTE: Cardiomediastinal silhouette is normal in size and configuration. LUNGS: Lungs are clear. ABDOMEN: No remarkable upper abdominal findings. BONES: No acute osseous changes. IMPRESSION: 1. No evidence of acute cardiopulmonary process. MACRO: None Signed by: Romulo Medrano 02/19/2024 6:53 PM Dictation workstation: [id number] [facility] ECG 12 leadOrdered By: Shavon Rico on 02-12-2024 Atrial Rate 63 BPM [facility] Work Phone: P [place] 58 degrees [facility] Work Phone: P Offset 149 ms [facility] Work Phone: P Onset 90 ms [facility] Work Phone: [phone] MN Interval 268 ms [facility] Work Phone: [phone] Q Onset 224 ms [facility] Work Phone: [phone] QRS Count 10 beats [facility] Work Phone: [phone] QRS Duration 74 ms [facility] Work Phone: [phone] QT Interval 406 ms [facility] Work Phone: [phone] QTC Calculation(Bazett) 415 ms [facility] Work Phone: [phone] QTC Fredericia 412 ms [facility] Work Phone: [phone] R [place] -3 degrees [facility] Work Phone: [phone] T [place] 18 degrees [facility] Work Phone: [phone] T Offset 427 ms [facility] Work Phone: [phone] Ventricular Rate 63 BPM [facility] Work Phone: [phone] [facility] Work Phone: [phone] ECG 12 leadon 02-12-2024 Sinus rhythm with 1s t degree AV block Otherwise normal ECG When compared with ECG of 30-JAN-2019 19:26, heart rate decreased Confirmed by Tobi Rico ([id number]) on 02/12/2024 12:20:00 PM MUSE Tobi Rico MD - 02/12/2024 Sinus rhythm with 1st degree AV block Otherwise normal ECG When compared with ECG of 30-JAN-2019 19:26, heart rate decreased Confirmed by Tobi Rico ([id number]) on 02/12/2024 12:20:00 PM [facility] Work Phone: Basic metabolic 2000 panelon 02-11-2024 Anion gap [Moles/Vol] 13 mmol/L Normal 10-20 [facility] Comment on above: Performed By: #### 2 4321-2 #### TITUS Mercado ([id number]) [facility] ([facility]) [address] [place] [address] Calcium [Mass/Vol] 9.6 mg/dL Normal 8.6-10.6 [facility] Comment on above: Performed By: #### 2 4321-2 #### TITUS Mercado ([id number]) [facility] ([facility]) [address] [place] [address] Chloride [Moles/Vol] 104 mmol/L Normal 98-107 [facility] Comment on above: Performed By: #### 2 4321-2 #### TITUS Mercado ([id number]) [facility] ([facility]) [address] [place] [address] CO2 [Moles/Vol] 26 mmol/L Normal 21-32 [facility] Comment on above: Performed By: #### 2 4321-2 #### TITUS Mercado (24348) [facility] ([facility]) [address] [place] [address] Creatinine [Mass/Vol] 0.89 mg/dL Normal 0.50-1.30 [facility] Comment on above: Performed By: #### 2 4321-2 #### TITUS Mercado (79089) [facility] ([facility]) [address] [place] [address] GFR/1.73 sq M.predicted MDRD (S/P/Bld) [Vol rate/Area] mL/min/{1.73_m2} Normal >60 [facility] Comment on above: Result Comment: Calc ulations of estimated GFR are performed using the 2020 CKD-EPI Study Refit equation without the race variable for the IDMS-Traceable creatinine methods. https://jasn.asnjournals.org/content//ASN.95624 85661 Performed By: #### 2 4321-2 #### TITUS Mercado ([id number]) [facility] ([facility]) [address] [place] [address] Glucose [Mass/Vol] 77 mg/dL Normal 74-99 [facility] Comment on above: Performed By: #### 2 4321-2 #### TITUS Mercado (84356) [facility] ([facility]) [address] [place] [address] Potassium [Moles/Vol] 4.6 mmol/L Normal 3.5-5.3 [facility] Comment on above: Performed By: #### 2 4321-2 #### TITUS Mercado (00353) [facility] ([facility]) [address] [place] [address] Sodium [Moles/Vol] 138 mmol/L Normal 136-145 [facility] Comment on above: Performed By: #### 2 4321-2 #### TITUS Mercado (15536) [facility] ([facility]) [address] [place] [address] Urea nitrogen [Mass/Vol] 9 mg/dL Normal 6-23 [facility] Comment on above: Performed By: #### 2 432-2 #### TITUS Mercado ([id number]) [facility] ([facility]) [address] [place] [address] Blood type and Indirect anti body screen panel (Bld)on 02-11-2024 ABO group Nom (Bld) A Normal [facility] Comment on above: Performed By: #### 3 4532-2 #### TITUS Mercado (15902) [facility] ([facility]) [address] [place] [address] Blood group antibody screen Ql Negative [facility] Comment on above: Performed By: #### 3 4532-2 #### TITUS Mercado (59830) [facility] ([facility]) [address] [place] [address] D Ag Ql (Bld) Positive [facility] Comment on above: Performed By: #### 3 4532-2 #### TITUS Mercado (08040) [facility] ([facility]) [address] [place] [address] CBC W Auto Differential pane l (Bld)on 02-11-2024 Basophils (Bld) [#/Vol] 0.04 x10*3/uL Normal 0.00-0.10 [facility] Comment on above: Performed By: #### 5 7021-8 #### TITUS Mercado (68945) [facility] ([facility]) [address] [place] [address] Basophils/100 WBC (Bld) 0.8 % Normal 0.0-2.0 [facility] Comment on above: Performed By: #### 5 7021-8 #### TITUS Mercado (08721) [facility] ([facility]) [address] [place] [address] Eosinophils (Bld) [#/Vol] 0.05 x10*3/uL Normal 0.00-0.70 [facility] Comment on above: Performed By: #### 5 7021-8 #### TITUS Mercado (84729) [facility] ([facility]) [address] [place] [address] Eosinophils/100 WBC (Bld) 1.0 % Normal 0.0-6.0 [facility] Comment on above: Performed By: #### 5 7021-8 #### TITUS Mercado (74312) [facility] ([facility]) [address] [place] [address] Erythrocyte distribution width (RBC) [Ratio] 13.2 % Normal 11.5-14.5 [facility] Comment on above: Performed By: #### 5 7021-8 #### TITUS Mercado (50251) [facility] ([facility]) [address] [place] [address] Hematocrit (Bld) [Volume fraction] 39.6 % Low 41.0-52.0 [facility] Comment on above: Performed By: #### 5 7021-8 #### TITUS Mercado ([id number]) [facility] ([facility]) [address] [place] [address] Hemoglobin (Bld) [Mass/Vol] 13.2 g/dL Low 13.5-17.5 [facility] Comment on above: Performed By: #### 5 7021-8 #### TITUS Mercado (13475) [facility] ([facility]) [address] [place] [address] Immature granulocytes (Bld) [#/Vol] 0.00 x10*3/uL Normal 0.00-0.70 [facility] Comment on above: Performed By: #### 5 7021-8 #### TITUS Mercado (67131) [facility] ([facility]) [address] [place] [address] Immature granulocytes/100 WBC (Bld) 0.0 % Normal 0.0-0.9 [facility] Comment on above: Result Comment: Dayan ture Granulocyte Count (IG) includes promyelocytes, myelocytes and metamyelocytes but does not include bands. Percent differential counts (%) should be interpreted in the context of the absolute cell counts (cells/UL). Performed By: #### 5 7021-8 #### TITUS Mercado (69829) [facility] ([facility]) [address] [place] [address] Lymphocytes (Bld) [#/Vol] 1.74 x10*3/uL Normal 1.20-4.80 [facility] Comment on above: Performed By: #### 5 7021-8 #### TITUS Mercado (22896) [facility] ([facility]) [address] [place] [address] Lymphocytes/100 WBC (Bld) 33.1 % Normal 13.0-44.0 [facility] Comment on above: Performed By: #### 5 7021-8 #### TITUS Mercado (71746) [facility] ([facility]) [address] [place] [address] MCH (RBC) [Entitic mass] 31.5 pg Normal 26.0-34.0 [facility] Comment on above: Performed By: #### 5 7021-8 #### TITUS Mercado (18243) [facility] ([facility]) [address] [place] [address] MCHC (RBC) [Mass/Vol] 33.3 g/dL Normal 32.0-36.0 [facility] Comment on above: Performed By: #### 5 7021-8 #### TITUS SOLORZANO L (29221) [facility] ([facility]) [address] [place] [address] MCV (RBC) [Entitic vol] 95 fL Normal 80-100 [facility] Comment on above: Performed By: #### 5 7021-8 #### TITUS Mercado ([id number]) [facility] ([facility]) [address] [place] [address] Monocytes (Bld) [#/Vol] 0.30 x10*3/uL Normal 0.10-1.00 [facility] Comment on above: Performed By: #### 5 7021-8 #### TITUS Mercado (87689) [facility] ([facility]) [address] [place] [address] Monocytes/100 WBC (Bld) 5.7 % Normal 2.0-10.0 [facility] Comment on above: Performed By: #### 5 7021-8 #### TITUS PAYANMOALE L (55767) [facility] ([facility]) [address] [place] [address] Neutrophils (Bld) [#/Vol] 3.13 x10*3/uL Normal 1.20-7.70 [facility] Comment on above: Result Comment: Perc ent differential counts (%) should be interpreted in the context of the absolute cell counts (cells/uL). Performed By: #### 5 7021-8 #### TITUS PAYANMOALE L (13383) [facility] ([facility]) [address] [place] [address] Neutrophils/100 WBC (Bld) 59.4 % Normal 40.0-80.0 [facility] Comment on above: Performed By: #### 5 7021-8 #### TITUS Mercado (73325) [facility] ([facility]) [address] [place] [address] Nucleated RBC/100 WBC (Bld) [Ratio] 0.0 /100 WBCs Normal 0.0-0.0 [facility] Comment on above: Performed By: #### 5 7021-8 #### TITUS SOLORZANO L (04175) [facility] ([facility]) [address] [place] [address] Platelets (Bld) [#/Vol] 271 x10*3/uL Normal 150-450 [facility] Comment on above: Performed By: #### 5 7021-8 #### TITUS Mercado (47111) [facility] ([facility]) [address] [place] [address] RBC (Bld) [#/Vol] 4.19 x10*6/uL Low 4.50-5.90 [facility] Comment on above: Performed By: #### 5 7021-8 #### TITUS Mercado (01292) [facility] ([facility]) [address] [place] [address] WBC (Bld) [#/Vol] 5.3 x10*3/uL Normal 4.4-11.3 [facility] Comment on above: Performed By: #### 5 7021-8 #### TITUS Mercado (24899) [facility] ([facility]) [address] [place] [address] ECG 12-LEADon 02-11-2024 ECG 12-LEAD Ventricular Rate 63 Atrial Rate 63 P-R Interval 268 QRS Duration 74 Q-T Interval 406 QTC Calculation(Bazett) 415 P [place] 58 R [place] -3 T [place] 18 QRS Count 10 Q Onset 224 P Onset 90 P Offset 149 T Offset 427 QTC Fredericia 412 Diagnosis Sinus rhythm with 1st degree AV block Otherwise normal ECG When compared with ECG of 30-JAN-2019 19:26, heart rate decreased Confirmed by Tobi Rico ([id number]) on 02/12/2024 12:20:00 PM Normal [facility] NICOTINE AND METABOLITES,Son 02-11-2024 Cotinine [Mass/Vol] 152 ng/mL Normal [facility] Comment on above: Performed By: #### N I+ME #### [facility] [[email or web address] [place]) ([id number]) [address] [place] [address] Nicotine [Mass/Vol] 6 ng/mL Normal [facility] Comment on above: Result Comment: [...] developed and its performance characteristics determined by [facility]. It has not been cleared or approved by the US Food and Drug Administration. This test was performed in a CLIA certified laboratory and is intended for clinical purposes. Performed By: [facility] [address] [place] [address] Cutter Tender: Chang Bullock MD, PhD CLIA Number: [id number] Performed By: #### N I+ME #### [facility] [[email or web address] LAB[facility]ORY (ADAM) ([id number]) [address] [place] [address] PT and aPTT panel Coag (PPP) on 02-11-2024 aPTT Coag (PPP) [Time] 33 s Normal 27-38 Un [facility] Comment on above: Order Comment: The A PTT is no longer used for monitoring Unfractionated Heparin Therapy. For monitoring Heparin Therapy, use the Heparin Assay. Performed By: #### 3 4529-8 #### TITUS Mercado (05406) [facility] ([facility]) [address] [place], [place] [address] INR Coag (PPP) [Relative time] 1.0 Normal 0.9-1.1 [facility] Comment on above: Order Comment: The A PTT is no longer used for monitoring Unfractionated Heparin Therapy. For monitoring Heparin Therapy, use the Heparin Assay. Performed By: #### 3 4529-8 #### TITUS Mercado (70989) [facility] ([facility]) [address] [place], [place] [address] PT Coag (PPP) [Time] 11.5 s Normal 9.8-12.8 [facility] Comment on above: Order Comment: The A PTT is no longer used for monitoring Unfractionated Heparin Therapy. For monitoring Heparin Therapy, use the Heparin Assay. Performed By: #### 3 4529-8 #### TITUS Mercado (03582) [facility] ([facility]) [address] [place], [place] [address] Staphylococcus aureus.methic illin resistant isolateon 02-11-2024 MRSA isol Org specific cx Ql (Nose) Test: Staphylococcus aureus/MRSA colonization, Culture Specimen Source: Anterior Nares Specimen Type: Swab Specimen Date: 02/11/20241504 Result Date: 02/13/2024825 Result Status: Final result Abnormal: No Resulting Lab: [facility] [address] [place] [address] CULTURE No Staphylococcus aureus isolated Normal [facility] Comment on above: Performed By: #### 5 2969-3 #### TITUS Mercado (54499) [facility] ([facility]) [address] [place], [place] [address] Urinalysis complete W Reflex Culture panel (U)on 02-11-2024 Appearance (U) Clear Normal Clear [facility] Comment on above: Performed By: #### 5 8077-9 #### TITUS Mercado (33894) [facility] ([facility]) [address] [place] [address] Bilirubin (U) [Mass/Vol] Negative Normal NEGATIVE [facility] Comment on above: Performed By: #### 5 8077-9 #### TITUS SOLORZANO L ([id number]) [facility] ([facility]) [address] [place] [address] Color (U) Colorless Normal Light-Dunn ow, Yellow, Dark-Yello w [facility] Comment on above: Performed By: #### 5 8077-9 #### TITUS SOLORZANO L (78635) [facility] ([facility]) [address] [place] [address] 31199 Glucose Auto test strip (U) [Mass/Vol] Normal Normal Normal [facility] Comment on above: Performed By: #### 5 8077-9 #### TITUS SOLORZANO L (61732) [facility] ([facility]) [address] [place] [address]67[address] Ketones (U) [Mass/Vol] Negative Normal NEGATIVE [facility] Comment on above: Performed By: #### 5 8077-9 #### TITUS SOLORZANO L (24901) [facility] ([facility]) [address] [place] [address]84[address] Leukocyte esterase Auto test strip Ql (U) Negative Normal NEGATIVE [facility] Comment on above: Performed By: #### 5 8077-9 #### TITUS SOLORZANO L (11025) [facility] ([facility]) [address] [place] [address]23[address] Nitrite Auto test strip Ql (U) Negative Normal NEGATIVE [facility] Comment on above: Performed By: #### 5 8077-9 #### TITUS SOLORZANO L (74674) [facility] ([facility]) [address] [place] [address]36[address] pH (U) 5.5 [pH] Normal 5.0, 5.5, 6.0, 6.5, 7.0, 7.5, 8.0 [facility] Comment on above: Performed By: #### 5 8077-9 #### TITUS Mercado (15797) [facility] ([facility]) [address] [place] [address] Protein (U) [Mass/Vol] Negative Normal NEGAT CELESTE, 10 (TRACE), 20 (TRACE) [facility] Comment on above: Performed By: #### 5 8077-9 #### TITUS PAYANMOTZER L (86408) [facility] ([facility]) [address] [place] [address] 59645 RBC (U) [#/Vol] Negative Normal NEGATIVE [facility] Comment on above: Performed By: #### 5 8077-9 #### TITUS ORTIZTZER L (83502) [facility] ([facility]) [address] [place] [address] 37184 Specific gravity (U) [Rel density] 1.007 Normal 1.005-1.03 5 [facility] Comment on above: Performed By: #### 5 8077-9 #### TITUS PAYANMOTZER L (65708) [facility] ([facility]) [address] [place] [address] 25834 Urobilinogen (U) [Mass/Vol] Normal Normal Normal [facility] Comment on above: Performed By: #### 5 8077-9 #### TITUS ORTIZTZER L (77677) [facility] ([facility]) [address] [place] [address] 25264 MR BRAIN TUMOR PERFUSION PRO TOCOL W AND WO IV CONTRASTon 12-13-2023 MR BRAIN TUMOR PERFUSION PROTOCOL W AND WO IV CONTRAST Interpreted By: Nate Benavidez, STUDY: MR BRAIN TUMOR PERFUSION PROTOCOL W AND WO IV CONTRAST; 12/13/2023 8:49 am INDICATION: Signs/Symptoms:pontine lesion, imaging surveillance. COMPARISON: None. ACCESSION NUMBER(S): [id number] ORDERING CLINICIAN: SHIMON HEATON TECHNIQUE: Axial diffusion, axial T2, axial FLAIR, [...] Nate Benavidez 12/13/2023 9:38 AM Dictation workstation: [id number] [facility] Comment on above: Order Comment: JESSICA huerta cc'd to [facility] Brain for new diagnosis t umor WO and W contrast Tristin 12-13-2023 There is again evide nce of nonspecific nonenhancing ill-defined abnormal bright signal [...] Nate Benavidez 12/13/2023 9:38 AM Dictation workstation: [id number] [facility] Interpreted By: Nate Dejesus, STUDY: MR BRAIN TUMOR PERFUSION PROTOCOL W AND WO IV CONTRAST; 12/13/2023 8:49 am INDICATION: Signs/Symptoms:pontine lesion, imaging surveillance. COMPARISON: None. ACCESSION NUMBER(S): [id number] ORDERING CLINICIAN: SHIMON HEATON TECHNIQUE: Axial diffusion, axial T2, axial FLAIR, [...] cells. The mastoid air cells are clear. [facility] Nate Benavidez M D - 12/13/2023 Interpreted By: Nate Benavidez, STUDY: MR BRAIN TUMOR PERFUSION PROTOCOL W AND WO IV CONTRAST; 12/13/2023 8:49 am INDICATION: Signs/Symptoms:pontine lesion, imaging surveillance. COMPARISON: None. ACCESSION NUMBER(S): [id number] ORDERING CLINICIAN: SHIMON HEATON TECHNIQUE: Axial diffusion, axial T2, axial FLAIR, [...] Nate Benavidez 12/13/2023 9:38 AM Dictation workstation: [id number] [facility] Work Phone: Radiology Study observation (narrative) [facility] Work Phone: MR Brain for new diagnosis t umor WO and W contrast IVOrdered By: Nate Benavidez on 12-13-2023 [facility] Work Phone: CNOVSPon 11-02-2023 CNOVSP Visit (SP) Office ([place]) ----- JOVANI MELENDEZ ([id number]) 1960 M Date Time Provider Department 11/02/23 9:45 AM MEMO COLE During your visit today, we recorded the following information about you: Temperature Pulse Respiration Blood pressure 97.7 degrees 72/minute 16/minute 130/76 Weight Height 79.7 kg 1.706 m Memo Cole MD 11/03/2023 12:15 PM Signed NAME: Jovani Melendez CLINIC NO.: [id number] DATE OF SERVICE: November 02, 2023 (Curtis) Some elements in this clinic note that are critical to medical decision making have been carefully reviewed and included from a prior clinic note dated: November 03, 2022 (Curtis). Referring Provider: Griselda Krause, DO Additional Clinicians involved in Jovani Melendez's care: Dr Kimberly Nichole ENT, Dr. 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 10/05/2021 - MRI Brain: [facility] There is T2 and T2 flair hyperintense [...] involving the (more content not included)... Normal [facility] Basophils Auto (Bld) [#/Vol] on 10-26-2023 Basophils (Bld) [#/Vol] 0.04 10*3/uL <0.11 [facility] Basophils/100 WBC Auto (Bld) on 10-26-2023 Basophils/100 WBC (Bld) 0.5 % [facility] Blood manual differential co mment interpretation narrativeon 10-26-2023 Manual differential comment Curtis (Bld) [Interp] Auto [facility] CBC W Auto Differential pane l (Bld)on 10-26-2023 Basophils (Bld) [#/Vol] 0.04 10*3/uL Normal <0.11 [facility] Comment on above: Order Comment: Speci men Type: BLOOD SPECIMEN Ordering Facility: [facility] Address: [address] [place] [address] Performed By: #### 5 7021-8 #### [facility] CLIA [id number] [address] [place] [address] Basophils/100 WBC (Bld) 0.5 % Normal [facility] Comment on above: Order Comment: Speci men Type: BLOOD SPECIMEN Ordering Facility: [facility] Address: [address] [place] [address] Performed By: #### 5 7021-8 #### [facility] CLIA [id number] [address] [place] [address] 10755 Differential cell count method Nom (Bld) Auto Normal [facility] Comment on above: Order Comment: Speci men Type: BLOOD SPECIMEN Ordering Facility: [facility] Address: [address] [place] [address] Performed By: #### 5 7021-8 #### [facility] CLIA [id number] [address] [place] [address] 495[address] Eosinophils (Bld) [#/Vol] 0.13 10*3/uL Normal <0.46 [facility] Comment on above: Order Comment: Speci men Type: BLOOD SPECIMEN Ordering Facility: [facility] Address: [address] [place] [address] Performed By: #### 5 7021-8 #### [facility] CLIA [id number] [address] [place] [address] Eosinophils/100 WBC (Bld) 1.5 % Normal [facility] Comment on above: Order Comment: Speci men Type: BLOOD SPECIMEN Ordering Facility: [facility] Address: [address] [place] [address] Performed By: #### 5 7021-8 #### [facility] CLIA [id number] [address] [place] [address] Erythrocyte distribution width (RBC) [Ratio] 13.8 % Normal 11.5-15.0 [facility] Comment on above: Order Comment: Speci men Type: BLOOD SPECIMEN Ordering Facility: [facility] Address: [address] [place] [address] Performed By: #### 5 7021-8 #### [facility] CLIA [id number] [address] [place] [address]20 Hematocrit (Bld) [Volume fraction] 42.6 % Normal 39.0-51.0 [facility] Comment on above: Order Comment: Speci men Type: BLOOD SPECIMEN Ordering Facility: [facility] Address: [address] [place] [address] Performed By: #### 5 7021-8 #### [facility] CLIA [id number] [address] [place] [address] 85586 Hemoglobin (Bld) [Mass/Vol] 14.4 g/dL Normal 13.0-17.0 [facility] Comment on above: Order Comment: Speci men Type: BLOOD SPECIMEN Ordering Facility: [facility] Address: [address] [place] [address] Performed By: #### 5 7021-8 #### [facility] CLIA [id number] [address] [place] [address] 36854 Immature granulocytes (Bld) [#/Vol] 0.03 10*3/uL Normal <0.10 [facility] Comment on above: Order Comment: Speci men Type: BLOOD SPECIMEN Ordering Facility: [facility] Address: [address] [place] [address] Performed By: #### 5 7021-8 #### [facility] CLIA [id number] [address] [place] [address] 08497 Immature granulocytes/100 WBC (Bld) 0.3 % Normal [facility] Comment on above: Order Comment: Speci men Type: BLOOD SPECIMEN Ordering Facility: [facility] Address: [address] [place] [address] Performed By: #### 5 7021-8 #### [facility] CLIA [id number] [address] [place] [address] 78174 Lymphocytes (Bld) [#/Vol] 2.18 10*3/uL Normal 1.00-4.00 [facility] Comment on above: Order Comment: Speci men Type: BLOOD SPECIMEN Ordering Facility: [facility] Address: [address] [place] [address] Performed By: #### 5 7021-8 #### [facility] CLIA [id number] [address] [place] [address] 45722 Lymphocytes/100 WBC (Bld) 24.8 % Normal [facility] Comment on above: Order Comment: Speci men Type: BLOOD SPECIMEN Ordering Facility: [facility] Address: [address] [place] [address] Performed By: #### 5 7021-8 #### [facility] CLIA [id number] [address] [place] [address] 53326 MCH (RBC) [Entitic mass] 32.0 pg Normal 26.0-34.0 [facility] Comment on above: Order Comment: Speci men Type: BLOOD SPECIMEN Ordering Facility: [facility] Address: [address] [place] [address] Performed By: #### 5 7021-8 #### [facility] CLIA [id number] [address] [place] [address] 79175 MCHC (RBC) [Mass/Vol] 33.8 g/dL Normal 30.5-36.0 [facility] Comment on above: Order Comment: Speci men Type: BLOOD SPECIMEN Ordering Facility: [facility] Address: [address] [place] [address] Performed By: #### 5 7021-8 #### [facility] CLIA [id number] [address] [place] [address] 36045 MCV (RBC) [Entitic vol] 94.7 fL Normal 80.0-100.0 [facility] Comment on above: Order Comment: Speci men Type: BLOOD SPECIMEN Ordering Facility: [facility] Address: [address] [place] [address] Performed By: #### 5 7021-8 #### [facility] CLIA [id number] [address] [place] [address] 83829 Monocytes (Bld) [#/Vol] 0.60 10*3/uL Normal <0.87 [facility] Comment on above: Order Comment: Speci men Type: BLOOD SPECIMEN Ordering Facility: [facility] Address: [address] [place] [address] Performed By: #### 5 7021-8 #### [facility] CLIA [id number] [address] [place] [address] 74539 Monocytes/100 WBC (Bld) 6.8 % Normal [facility] Comment on above: Order Comment: Speci men Type: BLOOD SPECIMEN Ordering Facility: [facility] Address: [address] [place] [address] Performed By: #### 5 7021-8 #### [facility] CLIA [id number] [address] [place] [address] 65862 Neutrophils (Bld) [#/Vol] 5.80 10*3/uL Normal 1.45-7.50 [facility] Comment on above: Order Comment: Speci men Type: BLOOD SPECIMEN Ordering Facility: [facility] Address: [address] [place] [address] Performed By: #### 5 7021-8 #### [facility] CLIA [id number] [address] [place] [address] 76143 Neutrophils/100 WBC (Bld) 66.1 % Normal [facility] Comment on above: Order Comment: Speci men Type: BLOOD SPECIMEN Ordering Facility: [facility] Address: [address] [place] [address] Performed By: #### 5 7021-8 #### [facility] CLIA [id number] [address] [place] [address] 14707 Nucleated RBC (Bld) [#/Vol] 10*3/uL Normal <0.01 [facility] Comment on above: Order Comment: Speci men Type: BLOOD SPECIMEN Ordering Facility: [facility] Address: [address] [place] [address] Performed By: #### 5 7021-8 #### [facility] CLIA [id number] [address] [place] [address] 84114 Nucleated RBC/100 WBC (Bld) [Ratio] 0.0 /100 WBC Normal [facility] Comment on above: Order Comment: Speci men Type: BLOOD SPECIMEN Ordering Facility: [facility] Address: [address] [place] [address] Performed By: #### 5 7021-8 #### [facility] CLIA [id number] [address] [place] [address] 57787 Platelet mean volume (Bld) [Entitic vol] 10.2 fL Normal 9.0-12.7 [facility] Comment on above: Order Comment: Speci men Type: BLOOD SPECIMEN Ordering Facility: [facility] Address: [address] [place] [address] Performed By: #### 5 7021-8 #### [facility] CLIA [id number] [address] [place] [address] 33491 Platelets (Bld) [#/Vol] 314 10*3/uL Normal 150-400 [facility] Comment on above: Order Comment: Speci men Type: BLOOD SPECIMEN Ordering Facility: [facility] Address: [address] [place] [address] Performed By: #### 5 7021-8 #### [facility] CLIA [id number] [address] [place] [address] 98171 RBC (Bld) [#/Vol] 4.50 10*6/uL Normal 4.20-6.00 [facility] Comment on above: Order Comment: Speci men Type: BLOOD SPECIMEN Ordering Facility: [facility] Address: [address] [place] [address] Performed By: #### 5 7021-8 #### [facility] CLIA [id number] [address] [place] [address] WBC (Bld) [#/Vol] 8.78 10*3/uL Normal 3.70-11.00 [facility] Comment on above: Order Comment: Speci men Type: BLOOD SPECIMEN Ordering Facility: [facility] Address: [facility] [place] [address] Performed By: #### 5 7021-8 #### [facility] CLIA [id number] [address] [place] [address] Basophils (Bld) [#/Vol] 0.04 10*3/uL [facility] Basophils/100 WBC (Bld) 0.5 % [facility] Differential cell count method Nom (Bld) Auto [facility] Eosinophils (Bld) [#/Vol] 0.13 10*3/uL [facility] Eosinophils/100 WBC (Bld) 1.5 % [facility] Erythrocyte distribution width (RBC) [Ratio] 13.8 % 11.5 - 15.0 % [facility] Hematocrit (Bld) [Volume fraction] 42.6 % 39.0 - 51.0 % [facility] Hemoglobin (Bld) [Mass/Vol] 14.4 g/dL 13.0 - 17.0 g/dL [facility] Immature granulocytes (Bld) [#/Vol] 0.03 10*3/uL [facility] Immature granulocytes/100 WBC (Bld) 0.3 % [facility] Lymphocytes (Bld) [#/Vol] 2.18 10*3/uL [facility] Lymphocytes/100 WBC (Bld) 24.8 % [facility] MCH (RBC) [Entitic mass] 32.0 pg 26.0 - 34.0 pg [facility] MCHC (RBC) [Mass/Vol] 33.8 g/dL 30.5 - 36.0 g/dL [facility] MCV (RBC) [Entitic vol] 94.7 fL 80.0 - 100.0 fL [facility] Monocytes (Bld) [#/Vol] 0.60 10*3/uL [facility] Monocytes/100 WBC (Bld) 6.8 % [facility] Neutrophils (Bld) [#/Vol] 5.80 10*3/uL [facility] Neutrophils/100 WBC (Bld) 66.1 % [facility] Nucleated RBC (Bld) [#/Vol] NINF [facility] Nucleated RBC/100 WBC (Bld) [Ratio] 0.0 % /100 WBC [facility] Platelet mean volume (Bld) [Entitic vol] 10.2 fL 9.0 - 12.7 fL [facility] Platelets (Bld) [#/Vol] 314 10*3/uL [facility] RBC (Bld) [#/Vol] 4.50 10*6/uL 4.20 - 6.00 m/uL [facility] WBC (Bld) [#/Vol] 8.78 10*3/uL [facility] CT CHEST W IVCONon CT CHEST W IVCON * * *Final Report* * * DATE OF EXAM: Oct 26 2023 10:05AM [facility] 0539 - CT CHEST W IVCON [...] any questions regarding this interpretation, please call [phone]. If you are unable to reach us at the number above, please feel free to contact [facility]iology at [phone]. [id number] Normal [facility] CT Chest W contrast Tristin IMPRESSION: 1. [...] any questions regarding this interpretation, please call [phone]. If you are unable to reach us at the number above, please feel free to contact [facility] at [phone]. DIVISION OF RADIOLOGY * * *Final Report* * * DATE OF EXAM: Oct 26 2023 10:05AM [facility] 0539 - CT CHEST W IVCON [...] No additional findings. DIVISION OF RADIOLOGY Provider, [facility] - 10/26/2023 * * *Final Report* * * DATE OF EXAM: Oct 26 2023 10:05AM [facility] 0539 - CT CHEST W IVCON [...] any questions regarding this interpretation, please call [phone]. If you are unable to reach us at the number above, please feel free to contact [facility] at [phone]. 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 Resected T1 N1 base [...] normal. Parotid and submandibular spaces are normal. Assistant Case Manager spaces appear normal. Infrahyoid Neck: Hypopharynx, larynx, [...] are clear of focal consolidation or mass. Painter Sign Maintenance (topogram) images: Noncontributory IMPRESSION: Primary: 1: Expected post-treatment changes in the neck without evidence of recurrent disease in the primary site. Neck: 1: No evidence of abnormal lymph nodes. [email or web address] Transcribe Date/Time: Oct 26 2023 10:15A Dictated by: LIMA LIZ MD This examination was interpreted and the report reviewed and electronically signed by: LIMA LIZ MD on Oct 26 2023 10:35AM EST Thank you for allowing us to participate in the care of your patient. Should there be any questions regardi (more content not included)... Normal [facility] CT Neck W contrast Tristin 05-1 IMPRESSION: Primary: 1: Expected post-treatment changes in the neck without evidence of recurrent disease in the primary site. Neck: 1: No evidence of abnormal lymph nodes. [email or web address] Transcribe Date/Time: Oct 26 2023 10:15A Dictated by: LIMA LIZ MD This examination was interpreted and the report reviewed and electronically signed by: LIMA LIZ MD on Oct 26 2023 10:35AM EST Thank you for allowing us to participate in the care of your patient. Should there be any questions regarding this interpretation, please call [phone]. If you are unable to reach us at the number above, please feel free to contact [facility]iology at [phone]. 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 Resected T1 N1 base [...] normal. Parotid and submandibular spaces are normal. Assistant Case Manager spaces appear normal. Infrahyoid Neck: Hypopharynx, larynx, [...] are clear of focal consolidation or mass. 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 Resected T1 N1 base [...] normal. Parotid and submandibular spaces are normal. Assistant Case Manager spaces appear normal. Infrahyoid Neck: Hypopharynx, larynx, [...] are clear of focal consolidation or mass. Painter Sign Maintenance (topogram) images: Noncontributory IMPRESSION IMPRESSION: Primary: 1: Expected post-treatment changes in the neck without evidence of recurrent disease in the primary site. Neck: 1: No evidence of abnormal lymph nodes. [email or web address] Transcribe Date/Time: Oct 26 2023 10:15A Dictated by: LIMA LIZ MD This examination was interpreted and the report reviewed and electronically signed by: (more content not included)... [facility] CT Neck W contrast IVOrdered By: Ccf Provider on 10-26-2023 [facility] Comprehensive metabolic 2000 panelon 10-26-2023 Albumin [Mass/Vol] 4.3 g/dL Normal 3.9-4.9 [facility] Comment on above: Order Comment: Speci men Type: BLOOD SPECIMEN Ordering Facility: [facility] Address: [address] [place] [address] Performed By: #### 2 4323-8 #### [facility] CLIA [id number] [address] [place] [address] ALP [Catalytic activity/Vol] 75 U/L Normal 38-113 [facility] Comment on above: Order Comment: Speci men Type: BLOOD SPECIMEN Ordering Facility: [facility] Address: [address] [place] [address] Performed By: #### 2 4323-8 #### [facility] CLIA [id number] [address] [place] [address] 36469 ALT [Catalytic activity/Vol] 10 U/L Normal 10-54 [facility] Comment on above: Order Comment: Speci men Type: BLOOD SPECIMEN Ordering Facility: [facility] Address: [address] [place] [address] Performed By: #### 2 4323-8 #### [facility] CLIA [id number] [address] [place] [address] Anion gap [Moles/Vol] 8 mmol/L Low 9-18 [facility] Comment on above: Order Comment: Speci men Type: BLOOD SPECIMEN Ordering Facility: [facility] Address: [address] [place] [address] Performed By: #### 2 4323-8 #### [facility] CLIA [id number] [address] [place] [address] AST [Catalytic activity/Vol] 9 U/L Low 14-40 [facility] Comment on above: Order Comment: Speci men Type: BLOOD SPECIMEN Ordering Facility: [facility] Address: [address] [id number] Performed By: #### 2 4323-8 #### [facility] CLIA [id number] [address] [place] [address] 36600 Bilirubin [Mass/Vol] 0.5 mg/dL Normal 0.2-1.3 [facility] Comment on above: Order Comment: Speci men Type: BLOOD SPECIMEN Ordering Facility: [facility] Address: [address] [place] [address] Performed By: #### 2 4323-8 #### [facility] CLIA [id number] [address] [place] [address] 51106 Calcium [Mass/Vol] 9.9 mg/dL Normal 8.5-10.2 [facility] Comment on above: Order Comment: Speci men Type: BLOOD SPECIMEN Ordering Facility: [facility] Address: [address] [place] [address] Performed By: #### 2 4323-8 #### [facility] CLIA [id number] [address] [place] [address] 53759 Chloride [Moles/Vol] 106 mmol/L High 97-105 [facility] Comment on above: Order Comment: Speci men Type: BLOOD SPECIMEN Ordering Facility: [facility] Address: [address] [place], [place] [address] Performed By: #### 2 4323-8 #### [facility] CLIA [id number] [address] [place] [address] 26591 CO2 [Moles/Vol] 27 mmol/L Normal 22-30 [facility] Comment on above: Order Comment: Speci men Type: BLOOD SPECIMEN Ordering Facility: [facility] Address: [address] [place] [address] Performed By: #### 2 4323-8 #### [facility] CLIA [id number] [address] [place] [address] Creatinine [Mass/Vol] 1.01 mg/dL Normal 0.73-1.22 [facility] Comment on above: Order Comment: Trevor jordan Type: BLOOD SPECIMEN Ordering Facility: [facility] Address: [address] [place], [place] [address] Performed By: #### 2 4323-8 #### [facility] CLIA [id number] [address] [place] [address] Creatinine and Glomerular filtration rate.predicted panel (S/P/Bld) 85 mL/min/1.73m??? Normal >=60 [facility] Comment on above: Order Comment: Trevor jordan Type: BLOOD SPECIMEN Ordering Facility: [facility] Address: [address] [place] [address] Result Comment: Sandra mated Glomerular Filtration Rate (eGFR) is calculated [...] GFR. Performed By: #### 2 4323-8 #### [facility] CLIA [id number] [address] [place] [address] 93693 Glucose [Mass/Vol] 89 mg/dL Normal 74-99 [facility] Comment on above: Order Comment: Trevor jordan Type: BLOOD SPECIMEN Ordering Facility: [facility] Address: [address] [id number] Result Comment: The [place] Diabetes Association (ADA) provides guidance for cutoff [...] Standards of Medical Care in Diabetes 2016, [place] [employer]. Diabetes Care. 2016.39(Suppl 1). Performed By: #### 2 4323-8 #### [facility] CLIA [id number] [address] [place] [address] 16078 Potassium [Moles/Vol] 4.0 mmol/L Normal 3.7-5.1 [facility] Comment on above: Order Comment: Speci men Type: BLOOD SPECIMEN Ordering Facility: [facility] Address: [address] [place] [address] Performed By: #### 2 432-8 #### [facility] CLIA [id number] [address] [place] [address] 09304 Protein [Mass/Vol] 6.4 g/dL Normal 6.3-8.0 [facility] Comment on above: Order Comment: Speci men Type: BLOOD SPECIMEN Ordering Facility: [facility] Address: [address] [address] Performed By: #### 2 432-8 #### [facility] CLIA [id number] [address] [place] [address] 17889 Sodium [Moles/Vol] 141 mmol/L Normal 136-144 [facility] Comment on above: Order Comment: Speci men Type: BLOOD SPECIMEN Ordering Facility: [facility] Address: [address] [address] Performed By: #### 2 4323-8 #### [facility] CLIA [id number] [address] [place] [address] 00493 Urea nitrogen [Mass/Vol] 16 mg/dL Normal 9-24 [facility] Comment on above: Order Comment: Speci men Type: BLOOD SPECIMEN Ordering Facility: [facility] Address: [address] [place] [address] Performed By: #### 2 4323-8 #### [facility] CLIA [id number] [address] [place] [address] Comprehensive metabolic 2000 panelOrdered By: Pauly Chan on 10-26-2023 Albumin [Mass/Vol] 4.3 g/dL 3.9 - 4.9 g/dL [facility] ALP [Catalytic activity/Vol] 75 U/L 38 - 113 U/L [facility] ALT [Catalytic activity/Vol] 10 U/L 10 - 54 U/L [facility] Anion gap [Moles/Vol] 8 mmol/L Low 9 - 18 mmol/L [facility] AST [Catalytic activity/Vol] 9 U/L Low 14 - 40 U/L [facility] Bilirubin [Mass/Vol] 0.5 mg/dL 0.2 - 1 .3 mg/dL [facility] Calcium [Mass/Vol] 9.9 mg/dL 8.5 - 10. 2 mg/dL [facility] Chloride [Moles/Vol] 106 mmol/L High 97 - 10 5 mmol/L [facility] CO2 [Moles/Vol] 27 mmol/L 22 - 30 mmol/L [facility] Creatinine [Mass/Vol] 1.01 mg/dL 0.73 - 1.22 mg/dL [facility] GFR/1.73 sq M.predicted among non-blacks MDRD (S/P/Bld) [Vol rate/Area] 85 mL/min/{1.73_m2} - PINF [facility] Comment on above: Estimated Glomerular Filtration Rate [...] [Mass/Vol] 89 mg/dL 74 - 99 mg/dL [facility] Comment on above: The [place] Diabete s Association (ADA) provides guidance for [...] Standards of Medical Care in Diabetes 2016, [place] [employer]. Diabetes Care. 2016.39(Suppl 1). Interpretation and review of laboratory results Abnormal [facility] Potassium [Moles/Vol] 4.0 mmol/L 3.7 - 5.1 mmol/L [facility] Protein [Mass/Vol] 6.4 g/dL 6.3 - 8.0 g/dL [facility] Sodium [Moles/Vol] 141 mmol/L 136 - 144 mmol/L [facility] Urea nitrogen [Mass/Vol] 16 mg/dL 9 - 24 mg/dL [facility] Eosinophils/100 WBC Auto (Bl d)on 10-26-2023 Eosinophils/100 WBC (Bld) 1.5 % [facility] Erythrocyte distribution wid th Auto (RBC) [Ratio]on 10-26-2023 Erythrocyte distribution width (RBC) [Ratio] 13.8 % 11.5-15.0 [facility] Hematocrit Auto (Bld) [Volum e fraction]on 10-26-2023 Hematocrit (Bld) [Volume fraction] 42.6 % 39.0-51.0 [facility] Hemoglobin [Mass/volume] in Bloodon 10-26-2023 Hemoglobin (Bld) [Mass/Vol] 14.4 g/dL 13.0-17.0 [facility] Laboratory - Chemistry and C hemistry - challengeon 10-26-2023 Albumin [Mass/Vol] 4.3 g/dL 3.9-4.9 [facility] ALP [Catalytic activity/Vol] 75 U/L 38-113 [facility] ALT [Catalytic activity/Vol] 10 U/L 10-54 [facility] AST [Catalytic activity/Vol] 9 U/L 14-40 [facility] Bilirubin [Mass/Vol] 0.5 mg/dL 0.2-1.3 [facility] Calcium [Mass/Vol] 9.9 mg/dL 8.5-10.2 [facility] Chloride [Moles/Vol] 106 mmol/L 97-105 [facility] CO2 [Moles/Vol] 27 mmol/L 22-30 [facility] Creatinine [Mass/Vol] 1.01 mg/dL 0.73-1.22 [facility] Glucose [Mass/Vol] 89 mg/dL 74-99 [facility] Comment on above: The [place] Diabete s Association (ADA) provides guidance for [...] Standards of Medical Care in Diabetes 2016, [place] [employer]. Diabetes Care. 2016.39(Suppl 1). Potassium [Moles/Vol] 4.0 mmol/L 3.7-5.1 [facility] Sodium [Moles/Vol] 141 mmol/L 136-144 [facility] Urea nitrogen [Mass/Vol] 16 mg/dL 9-24 [facility] Laboratory - Hematology and Cell countson 10-26-2023 Eosinophils (Bld) [#/Vol] 0.13 10*3/uL <0.46 [facility] Immature granulocytes (Bld) [#/Vol] 0.03 10*3/uL <0.10 [facility] Immature granulocytes/100 WBC (Bld) 0.3 % [facility] Leukocytes [#/volume] correc mone for nucleated erythrocytes in Blood by Automated counon 10-26-2023 WBC corrected for nucl RBC Auto (Bld) [#/Vol] 8.78 k/uL 3.70-11.00 [facility] Lymphocytes Auto (Bld) [#/Vo l]on 10-26-2023 Lymphocytes (Bld) [#/Vol] 2.18 10*3/uL 1.00-4.00 [facility] Lymphocytes/100 WBC Auto (Bl d)on 10-26-2023 Lymphocytes/100 WBC (Bld) 24.8 % [facility] MCH Auto (RBC) [Entitic mass ]on 10-26-2023 MCH (RBC) [Entitic mass] 32.0 pg 26.0-34.0 [facility] MCHC Auto (RBC) [Mass/Vol]on 10-26-2023 MCHC (RBC) [Mass/Vol] 33.8 g/dL 30.5-36.0 [facility] MCV Auto (RBC) [Entitic vol] on 10-26-2023 MCV (RBC) [Entitic vol] 94.7 fL 80.0-100.0 [facility] Monocytes Auto (Bld) [#/Vol] on 10-26-2023 Monocytes (Bld) [#/Vol] 0.60 10*3/uL <0.87 [facility] Monocytes/100 WBC Auto (Bld) on 10-26-2023 Monocytes/100 WBC (Bld) 6.8 % [facility] Neutrophils Auto (Bld) [#/Vo l]on 10-26-2023 Neutrophils (Bld) [#/Vol] 5.80 10*3/uL 1.45-7.50 [facility] Neutrophils/100 WBC Auto (Bl d)on 10-26-2023 Neutrophils/100 WBC (Bld) 66.1 % [facility] No Panel Informationon 10-25 Radiology Study observation (narrative) [facility] Estimated GFR (CKD-EPI) 85 mL/min/1.73m??? >=60 [facility] Comment on above: Estimated Glomerular [...] 10-26-2023 Nucleated RBC (Bld) [#/Vol] 10*3/uL <0.01 [facility] Nucleated erythrocytes [Pres ence] in Blood by Automated counton 10-26-2023 Nucleated RBC Auto Ql (Bld) 0.0 /100{WBC} [facility] Platelet mean volume Auto (B ld) [Entitic vol]on 10-26-2023 Platelet mean volume (Bld) [Entitic vol] 10.2 fL 9.0-12.7 [facility] Platelets Auto (Bld) [#/Vol] on 10-26-2023 Platelets (Bld) [#/Vol] 314 10*3/uL 150-400 [facility] Protein [Mass/volume] in Ser um or Plasmaon 10-26-2023 Protein [Mass/Vol] 6.4 g/dL 6.3-8.0 [facility] RBC Auto (Bld) [#/Vol]on RBC (Bld) [#/Vol] 4.50 10*6/uL 4.20-6.00 [facility] Serum or plasma anion gap de terminationon 10-26-2023 Anion gap [Moles/Vol] 8 mmol/L 9-18 [facility] XR CERVICAL SPINE AP/LAT/FLE X/EXTon [...] on 10-09-2023 ALT [Catalytic activity/Vol] 8 U/L Normal 7-52 [facility] Comment on above: Performed By: #### C BC, BIOFIRANIBALOVNOTPAM, CMP, RESP PANEL UPP. #### [address] Albumin [Mass/volume] in Ser um or Plasma by Bromocresol green (BCG) dye binding methoOrdered By: Griselda Krause on 10-09-2023 Albumin BCG dye [Mass/Vol] 3.9 g/dL 3.5-5.7 [facility] Alkaline phosphatase [Enzyma tic activity/volume] in Serum or PlasmaOrdered By: Griselda Krause on 10-09-2023 ALP [Catalytic activity/Vol] 59 U/L Normal 34-104 [facility] Comment on above: Result Comment: PERF ORMED BY: [place] [address] PATHOLOGIST TRANSITIONS RN CARE COORDINATOR CARMEN LYNCH M.D. Performed By: #### C BC, BIOFIRECOVNOTDE, CMP, RESP PANEL UPP. #### [address] Aspartate aminotransferase [ Enzymatic activity/volume] in Serum or PlasmaOrdered By: Griselda Krause on 10-09-2023 AST [Catalytic activity/Vol] 7 U/L Low 13-39 [facility] Comment on above: Performed By: #### C BC, BIOFIRECOVNOTDE, CMP, RESP PANEL UPP. #### [address] Automated basophil %Ordered By: Griselda Krause on 10-09-2023 Basophils/100 WBC (Bld) 0.9 % Normal . [facility] Comment on above: Performed By: #### C BC, BIOFIRECOVNOTDE, CMP, RESP PANEL UPP. #### [address] Automated basophil countOrde red By: Griselda Krause on 10-09-2023 Basophils (Bld) [#/Vol] 0.1 10*3/uL Normal 0.0-0.2 [facility] Comment on above: Result Comment: PERF ORMED BY: [place] [address] PATHOLOGIST TRANSITIONS RN CARE COORDINATOR CARMEN LYNCH M.D. Performed By: #### C BC, BIOFIRECOVNOTDE, CMP, RESP PANEL UPP. #### [address] Automated blood monocyte cou ntOrdered By: Griseldakeith Mendezs on 10-09-2023 Monocytes (Bld) [#/Vol] 0.6 10*3/uL Normal 0.0-0.8 [facility] Comment on above: Performed By: #### C BC, BIOFIRECOVNOTDE, CMP, RESP PANEL UPP. #### [address] Automated eosinophil %Ordere d By: Griselda Tomekas on 10-09-2023 Eosinophils/100 WBC (Bld) 1.0 % Normal . [facility] Comment on above: Performed By: #### C BC, BIOFIRECOVNOTDE, CMP, RESP PANEL UPP. #### [address] Automated eosinophil countOr dered By: Griselda Mendezs on 10-09-2023 Eosinophils (Bld) [#/Vol] 0.1 10*3/uL Normal 0.0-0.45 [facility] Comment on above: Performed By: #### C BC, BIOFIRECOVNOTDE, CMP, RESP PANEL UPP. #### [address] Automated monocyte %Ordered By: Griseldakeith Mendezs on 10-09-2023 Monocytes/100 WBC (Bld) 7.5 % Normal . [facility] Comment on above: Performed By: #### C BC, BIOFIRECOVNOTDE, CMP, RESP PANEL UPP. #### [address] Automated neutrophil %Ordere d By: Griselda Kuns on 10-09-2023 Neutrophils/100 WBC (Bld) 57.0 % Normal . [facility] Comment on above: Performed By: #### C BC, BIOFIRECOVNOTDE, CMP, RESP PANEL UPP. #### [facility] [address] Bilirubin.total [Mass/volume ] in Serum or PlasmaOrdered By: Griselda Krause on 10-09-2023 Bilirubin [Mass/Vol] 0.5 mg/dL Normal 0.3-1.0 [facility] Comment on above: Performed By: #### C BC, BIOFIRECOVNOTDE, CMP, RESP PANEL UPP. #### [address] BioFire Not Detectedon 10-08 BioFire Not Detected Not detected Normal Not Detecte [facility] Comment on above: Result Comment: This is a duplicate RP2.1 COVID (PCR) result to be used for statistical tracking purpose only. PERFORMED BY: [place] [address] PATHOLOGIST TRANSITIONS RN CARE COORDINATOR CARMEN LYNCH M.D. Performed By: #### C BC, BIOFIRECOVNOTDE, CMP, RESP PANEL UPP. #### [address] COVID-19 Detected/Not Detect edOrdered By: Griselda Krause on 10-09-2023 SARS-CoV-2 (COVID-19) RNA JER+non-probe Ql (Nph) Not detected Not Detecte [facility] Comment on above: This is a duplicate RP2.1 COVID (PCR) result to be used for statistical tracking purpose only. Calcium [Mass/volume] in Ser um or PlasmaOrdered By: Griselda Krause on 10-09-2023 Calcium [Mass/Vol] 9.5 mg/dL Normal 8.6-10.3 [facility] Comment on above: Performed By: #### C BC, BIOFIRECOVNOTDE, CMP, RESP PANEL UPP. #### [address] Carbon dioxide, total [Moles /volume] in Serum or PlasmaOrdered By: Griselda Krause on 10-09-2023 CO2 [Moles/Vol] 30.0 mmol/L Normal 21.0-31.0 [facility] Comment on above: Performed By: #### C BC, BIOFIRECOVNOTDE, CMP, RESP PANEL UPP. #### [address] Chloride [Moles/volume] in S rica or PlasmaOrdered By: Griselda Krause on 10-09-2023 Chloride [Moles/Vol] 103 mmol/L Normal 98-107 [facility] Comment on above: Performed By: #### C BC, BIOFIRECOVNOTDE, CMP, RESP PANEL UPP. #### [address] Complete Blood Count Auto Di ffon 10-09-2023 Mean Corpuscular HGB Conc 34.4 g/dL Normal 32.5-35.6 [facility] Comment on above: Performed By: #### C BC, BIOFIRECOVNOTDE, CMP, RESP PANEL UPP. #### [address] NRBC% 0.2 /100{WBC} Normal 0-0.5 [facility] Comment on above: Performed By: #### C BC, BIOFIRECOVNOTDE, CMP, RESP PANEL UPP. #### [address] Comprehensive Metabolic Pane chanel 10-09-2023 Albumin [Mass/Vol] 3.9 g/dL Normal 3.5-5.7 [facility] Comment on above: Performed By: #### C BC, BIOFIRECOVNOTDE, CMP, RESP PANEL UPP. #### [place] [address] [place] GFR/1.73 sq M.predicted MDRD (S/P/Bld) [Vol rate/Area] mL/min/{1.73_m2} Normal [facility] Comment on above: Performed By: #### C BC, BIOFIRECOVNOTDE, CMP, RESP PANEL UPP. #### [address] Creatinine [Mass/volume] in Serum or PlasmaOrdered By: Griselda Krause on 10-09-2023 Creatinine [Mass/Vol] 0.92 mg/dL Normal 0.70-1.30 [facility] Comment on above: Performed By: #### C BC, BIOFIRECOVNOTDE, CMP, RESP PANEL UPP. #### [facility] [address] Erythrocyte distribution wid th [Ratio] by Automated countOrdered By: Griselda Krause on 10-09-2023 Erythrocyte distribution width (RBC) [Ratio] 14.3 % Normal 12.0-14.8 [facility] Comment on above: Performed By: #### C BC, BIOFIRECOVNOTDE, CMP, RESP PANEL UPP. #### [address] Erythrocytes [#/volume] in B lood by Automated countOrdered By: Griselda Krause on 10-09-2023 RBC (Bld) [#/Vol] 4.42 10*6/uL Normal 3.90-5.60 [facility] Comment on above: Performed By: #### C BC, BIOFIRECOVNOTDE, CMP, RESP PANEL UPP. #### [address] Glucose [Mass/volume] in Ser um or PlasmaOrdered By: Griselda Krause on 10-09-2023 Glucose [Mass/Vol] 84 mg/dL Normal 70-100 [facility] Comment on above: ADA recommended refe rence rangeRandom Glucose Reference Range is dependent on time and content of last meal. Glucose of more than 200 mg/dL in a nonstressed, ambulatory subject supports the diagnosis of Diabetes Mellitus. Result Comment: [place] om Glucose Reference Range is dependent on time and content of last meal. Glucose of more than 200 mg/dL in a nonstressed, ambulatory subject supports the diagnosis of Diabetes Mellitus. ADA recommended reference range Performed By: #### C BC, BIOFIRECOVNOTDE, CMP, RESP PANEL UPP. #### [address] Hematocrit [Volume Fraction] of Blood by Automated countOrdered By: Griselda Krause on 10-09-2023 Hematocrit (Bld) [Volume fraction] 41.9 % Normal 38.8-50.0 [facility] Comment on above: Performed By: #### C BC, BIOFIRECOVNOTDE, CMP, RESP PANEL UPP. #### [address] Hemoglobin [Mass/volume] in BloodOrdered By: Griselda Krause on 10-09-2023 Hemoglobin (Bld) [Mass/Vol] 14.4 g/dL Normal 13.0-17.0 [facility] Comment on above: Performed By: #### C BC, BIOFIRECOVNOTDE, CMP, RESP PANEL UPP. #### [address] Leukocytes [#/volume] correc mone for nucleated erythrocytes in Blood by Automated counOrdered By: Griselda Krause on 10-09-2023 WBC corrected for nucl RBC Auto (Bld) [#/Vol] 8.1 10*3/uL 4.1-10.5 [facility] Leukocytes [#/volume] in Blo od by Automated countOrdered By: Griselda Krause on 10-09-2023 WBC (Bld) [#/Vol] 8.1 10*3/uL Normal 4.1-10.5 [facility] Comment on above: Performed By: #### C BC, BIOFIRECOVNOTDE, CMP, RESP PANEL UPP. #### [place] [address] [place] Lymphocytes [#/volume] in Bl ood by Automated countOrdered By: Griselda Krause on 10-09-2023 Lymphocytes (Bld) [#/Vol] 2.7 10*3/uL Normal 1.00-4.8 [facility] Comment on above: Performed By: #### C BC, BIOFIRECOVNOTDE, CMP, RESP PANEL UPP. #### [address] Lymphocytes/100 leukocytes i n Blood by Automated countOrdered By: Griselda Krause on 10-09-2023 Lymphocytes/100 WBC (Bld) 33.6 % Normal . [facility] Comment on above: Performed By: #### C BC, BIOFIRECOVNOTDE, CMP, RESP PANEL UPP. #### [facility] [address] MCH [Entitic mass] by Automa mone countOrdered By: Griselda Krause on 10-09-2023 MCH (RBC) [Entitic mass] 32.7 pg Normal 27.5-35.2 [facility] Comment on above: Performed By: #### C BC, BIOFIRECOVNOTDE, CMP, RESP PANEL UPP. #### [facility] [address] MCHC Auto (RBC) [Mass/Vol]Or dered By: Griselda Krause on 10-09-2023 MCHC (RBC) [Mass/Vol] 34.4 g/dL 32.5-35.6 [facility] MCV [Entitic volume] by Auto mated countOrdered By: Griselda Krause on 10-09-2023 MCV (RBC) [Entitic vol] 94.8 fL Normal 83.5-101 [facility] Comment on above: Performed By: #### C BC, BIOFIRECOVNOTDE, CMP, RESP PANEL UPP. #### [address] Neutrophils [#/volume] in Bl ood by Automated countOrdered By: Griselda Krause on 10-09-2023 Neutrophils (Bld) [#/Vol] 4.6 10*3/uL Normal 1.8-7.7 [facility] Comment on above: Performed By: #### C BC, BIOFIRECOVNOTDE, CMP, RESP PANEL UPP. #### [facility] [address] No Panel InformationOrdered By: Griselda Krause on 10-09-2023 Estimated GFR (CKD-EPI) > 60.0 mL/Min [facility] Creatinine Clearance (Chem N/A [facility] Nucleated erythrocytes [Pres ence] in Blood by Automated countOrdered By: Griselda Krause on 10-09-2023 Nucleated RBC Auto Ql (Bld) 0.2 /100{WBC} 0-0.5 [facility] Platelet mean volume [Entiti c volume] in Blood by Automated countOrdered By: Griselda Krause on 10-09-2023 Platelet mean volume (Bld) [Entitic vol] 8.3 fL Normal 6.6-10.1 [facility] Comment on above: Performed By: #### C BC, BIOFIRECOVNOTDE, CMP, RESP PANEL UPP. #### [address] Platelets [#/volume] in Bloo d by Automated countOrdered By: Griselda Krause on 10-09-2023 Platelets (Bld) [#/Vol] 349 10*3/uL Normal 150-450 [facility] Comment on above: Performed By: #### C BC, BIOFIRECOVNOTDE, CMP, RESP PANEL UPP. #### [address] Potassium [Moles/volume] in Serum or PlasmaOrdered By: Griselda Krause on 10-09-2023 Potassium [Moles/Vol] 4.5 mmol/L Normal 3.5-5.1 [facility] Comment on above: Performed By: #### C BC, BIOFIRECOVNOTDE, CMP, RESP PANEL UPP. #### [address] Protein [Mass/volume] in Ser um or PlasmaOrdered By: Griselda Krause on 10-09-2023 Protein [Mass/Vol] 5.9 g/dL Low 6.4-8.9 [facility] Comment on above: Performed By: #### C BC, BIOFIRECOVNOTDE, CMP, RESP PANEL UPP. #### [place] [address] [place] Respiratory (Upper) Panel, P CRon 10-09-2023 Respiratory [...] A H3 Blank Space ---- PERFORMED BY: [place] [address] PATHOLOGIST TRANSITIONS RN CARE COORDINATOR CARMEN LYNCH M.D. Normal [facility] Comment on above: Performed By: #### C BC, BIOFIRECOVNOTDE, CMP, RESP PANEL UPP. #### [facility] [address] [place] [address] Respiratory pathogens DNA an d RNA panel - Nasopharynx by JER with non-probe detectionOrdered By: Griselda Krause on 10-09-2023 Respiratory pathogens DNA and RNA panel JER+non-probe (Nph) [facility] Serum globulin measurement b y calculation (mass/volume)Ordered By: Griselda Krause on 10-09-2023 Globulin (S) [Mass/Vol] 2.0 g/dL Normal [facility] Comment on above: Performed By: #### C BC, BIOFIRECOVNOTDE, CMP, RESP PANEL UPP. #### [facility] [address] [place] [address] Serum or plasma albumin/glob ulin mass ratioOrdered By: Griselda Krause on 10-09-2023 Albumin/Globulin [Mass ratio] 2.0 {ratio} Normal [facility] Comment on above: Performed By: #### C BC, BIOFIRECOVNOTDE, CMP, RESP PANEL UPP. #### [address] Serum or plasma anion gap de terminationOrdered By: Griselda Krause on 10-09-2023 Anion gap [Moles/Vol] 9.5 mmol/L Normal 6.0-15.0 [facility] Comment on above: Performed By: #### C BC, BIOFIRECOVNOTDE, CMP, RESP PANEL UPP. #### [address] Sodium [Moles/volume] in Ser um or PlasmaOrdered By: Griselda Krause on 10-09-2023 Sodium [Moles/Vol] 138 mmol/L Normal 136-145 [facility] Comment on above: Performed By: #### C BC, BIOFIRECOVNOTDE, CMP, RESP PANEL UPP. #### [address] Urea nitrogen [Mass/volume] in Serum or PlasmaOrdered By: Griselda Krause on 10-09-2023 Urea nitrogen [Mass/Vol] 14 mg/dL Normal 7-25 [facility] Comment on above: Performed By: #### C BC, BIOFIRECOVNOTDE, CMP, RESP PANEL UPP. #### [place] [address] [place] XR chest 2V*on 10-09-2023 XR chest 2V* [facility] [place] [address] [place] [address] XRay Report Signed Patient: Jovani Melendez MR#: [id number] : 1960 Acct:[id number] Age/Sex: 62 / M ADM Date: 10/09/23 Loc: XD Room: Type: [facility] Attending Dr: Griselda Krause DO Copies [...] Filipe Perez M.D.10/09/2023 3:33 PM Dictation Location: [place] [address] Transcribed By: [facility] 10/09/23 1533 Dictated By: Filipe Perez DO 10/09/23 1532 Signed By: 10/09/23 1533 Normal [facility] MR TRANSFER OF OUTSIDE FILMS on 09-19-2023 MR TRANSFER OF OUTSIDE FILMS Outside images for comparison or treatment purposes, not interpreted by Radiologists. Normal [facility] Study Interpretation of outs jeffrey studyon [...] US ankle/arm indiceson 09-04 US ankle/arm indices [facility] [place] [address] [place] [address] Ultrasound Report Signed Patient: Jovani Melendez MR#: [id number] : 1960 Acct:[id number] Age/Sex: 62 / M ADM Date: 09/05/23 Loc: [facility] Room: Type: [facility] Attending Dr: Ruddy Harvey MD Ordering [...] Ruddy Harvey MD09/05/2023 2:40 PM Dictation Location: [place] [address] Tech: [employer] Transcribed By: MARISA 09/05/23 1440 Dictated By: Ruddy Harvey MD 09/05/23 1439 Signed By: 09/05/23 1440 Normal [facility] MRI BRAIN W WO CONTRASTon [...] Vitor Hickman MD 08/01/23 Final result Normal [facility] MRI CERVICAL SPINE WO CONTRA STon [...] Vitor Hickman MD 08/01/23 Final result Normal [facility] COVID + FLU Quick Testingon 07-02-2023 SARS-CoV-2 (COVID-19) RNA JER+probe Ql (Unsp spec) Negative [facility] Other COVID + FLU Quick Testing Negative [facility] Other Quick Strepon 07-02-2023 S. pyogenes Org specific cx Ql (Throat) Negative [facility] Other Quick Strep [facility] Other RSVon 07-02-2023 RSV Ag IA Ql (Unsp spec) Negative [facility] Other Creatinine [Mass/volume] in Serum or PlasmaOrdered By: Ruddy Harvey on 05-07-2023 Creatinine [Mass/Vol] 0.91 mg/dL 0.70-1.30 [facility] No Panel InformationOrdered By: Ruddy Harvey on 05-07-2023 Estimated GFR (CKD-EPI) > 60.0 mL/Min [facility] Creatinine Clearance (Chem 83.52 [facility] Urea nitrogen [Mass/volume] in Serum or PlasmaOrdered By: Ruddy Harvey on 05-07-2023 Urea nitrogen [Mass/Vol] 15 mg/dL 01-09 [facility] Creatinine (Bld) [Mass/Vol]O rdered By: Nikole Thomason on 05-04-2023 Creatinine [Mass/Vol] 0.9 mg/dL 0.6-1.3 [facility] Comment on above: ER/ESD physician is notified/shown all ISTAT results.Critical values may be confirmed by laboratory testing ifdeemed necessary by ER attending doctor. No Panel InformationOrdered By: Nikole Thomason on 05-04-2023 Bedside Estimated GFR (eGFR) > 60.0 [facility] Alanine aminotransferase [En zymatic activity/volume] in Serum or PlasmaOrdered By: Griselda Krause on 03-30-2023 ALT [Catalytic activity/Vol] 10 U/L [facility] Albumin [Mass/volume] in Ser um or Plasma by Bromocresol green (BCG) dye binding methoOrdered By: Griselda Krause on 03-30-2023 Albumin BCG dye [Mass/Vol] 4.2 g/dL 3.5-5.7 [facility] Alkaline phosphatase [Enzyma tic activity/volume] in Serum or PlasmaOrdered By: Griselda Krause on 03-30-2023 ALP [Catalytic activity/Vol] 61 U/L 34-104 [facility] Aspartate aminotransferase [ Enzymatic activity/volume] in Serum or PlasmaOrdered By: Griselda Krause on 03-30-2023 AST [Catalytic activity/Vol] 8 U/L 13-39 [facility] Basophils Auto (Bld) [#/Vol] Ordered By: Griselda Krause on 03-30-2023 Basophils (Bld) [#/Vol] 0.1 10*3/uL 0.0-0.2 [facility] Basophils/100 WBC Auto (Bld) Ordered By: Griselda Krause on 03-30-2023 Basophils/100 WBC (Bld) 0.8 % . [facility] Bilirubin.total [Mass/volume ] in Serum or PlasmaOrdered By: Griselda Krause on 03-30-2023 Bilirubin [Mass/Vol] 0.9 mg/dL 0.3-1.0 [facility] Calcium [Mass/volume] in Ser um or PlasmaOrdered By: Griselda Krause on 03-30-2023 Calcium [Mass/Vol] 9.1 mg/dL 8.6-10.3 [facility] Carbon dioxide, total [Moles /volume] in Serum or PlasmaOrdered By: Griselda Krause on 03-30-2023 CO2 [Moles/Vol] 27.0 mmol/L 21.0-31.0 [facility] Chloride [Moles/volume] in [place] or PlasmaOrdered By: Griselda Krause on 03-30-2023 Chloride [Moles/Vol] 103 mmol/L 98-107 [facility] Cholesterol [Mass/volume] in Serum or PlasmaOrdered By: Griselda Krause on 03-30-2023 Cholesterol [Mass/Vol] 224 mg/dL 140-200 [facility] Comment on above: Chol less than 200 m g/dl low riskChol 201-239 mg/dl borderline riskChol 240 mg/dl and greater high risk Cholesterol in LDL Calc [Mas s/Vol]Ordered By: Griselda Krause on 03-30-2023 Cholesterol in LDL [Mass/Vol] 148 mg/dL 0-100 [facility] Comment on above: LDL ATP III CLASSIFI CATIONLDL less than 100 mg/dL OptimalLDL 100-129 mg/dL Near or above optimalLDL 130-159 mg/dL Borderline highLDL 160-189 mg/dL HighLDL greater than 189 mg/dL Very high Cholesterol in VLDL Calc [Ma ss/Vol]Ordered By: Griselda Krause on 03-30-2023 Cholesterol in VLDL [Mass/Vol] 31 mg/dL [facility] Creatinine [Mass/volume] in Serum or PlasmaOrdered By: Griselda Krause on 03-30-2023 Creatinine [Mass/Vol] 0.82 mg/dL 0.70-1.30 [facility] Eosinophils Auto (Bld) [#/Vo l]Ordered By: Griselda Krause on 03-30-2023 Eosinophils (Bld) [#/Vol] 0.1 10*3/uL 0.0-0.45 [facility] Eosinophils/100 WBC Auto (Bl d)Ordered By: Griselda Krause on 03-30-2023 Eosinophils/100 WBC (Bld) 0.6 % . [facility] Erythrocyte distribution wid th Auto (RBC) [Ratio]Ordered By: Griselda Krause on 03-30-2023 Erythrocyte distribution width (RBC) [Ratio] 14.1 % 12.0-14.8 [facility] Globulin Calc (S) [Mass/Vol] Ordered By: Griselda Krause on 03-30-2023 Globulin (S) [Mass/Vol] 1.9 g/dL [facility] Glucose [Mass/volume] in Ser um or PlasmaOrdered By: Griselda Krause on 03-30-2023 Glucose [Mass/Vol] 83 mg/dL 70-100 [facility] Comment on above: ADA recommended refe rence rangeRandom Glucose Reference Range is dependent on time and content of last meal. Glucose of more than 200 mg/dL in a nonstressed, ambulatory subject supports the diagnosis of Diabetes Mellitus. Hematocrit Auto (Bld) [Volum e fraction]Ordered By: Griselda Krause on 03-30-2023 Hematocrit (Bld) [Volume fraction] 41.4 % 38.8-50.0 [facility] Hemoglobin [Mass/volume] in BloodOrdered By: Griselda Krause on 03-30-2023 Hemoglobin (Bld) [Mass/Vol] 14.4 g/dL 13.0-17.0 [facility] Leukocytes [#/volume] correc mone for nucleated erythrocytes in Blood by Automated counOrdered By: Griselda Krause on 03-30-2023 WBC corrected for nucl RBC Auto (Bld) [#/Vol] 10.0 10*3/uL 4.1-10.5 [facility] Lymphocytes Auto (Bld) [#/Vo l]Ordered By: Griselda Krause on 03-30-2023 Lymphocytes (Bld) [#/Vol] 1.7 10*3/uL 1.00-4.8 [facility] Lymphocytes/100 WBC Auto (Bl d)Ordered By: Griselda Krause on 03-30-2023 Lymphocytes/100 WBC (Bld) 16.8 % . [facility] MCH Auto (RBC) [Entitic mass ]Ordered By: Griselda Krause on 03-30-2023 MCH (RBC) [Entitic mass] 33.9 pg 27.5-35.2 [facility] MCHC Auto (RBC) [Mass/Vol]Or dered By: Griselda Krause on 03-30-2023 MCHC (RBC) [Mass/Vol] 34.9 g/dL 32.5-35.6 [facility] MCV Auto (RBC) [Entitic vol] Ordered By: Griselda Krause on 03-30-2023 MCV (RBC) [Entitic vol] 97.1 fL 83.5-101 [facility] Monocytes Auto (Bld) [#/Vol] Ordered By: Griselda Krause on 03-30-2023 Monocytes (Bld) [#/Vol] 0.8 10*3/uL 0.0-0.8 [facility] [facility] Mon[facility]/100 WBC Auto (Bld) Ordered By: Griselda Krause on 03-30-2023 Monocytes/100 WBC (Bld) 8.0 % . [facility] Neutrophils Auto (Bld) [#/Vo l]Ordered By: Griselda Krause on 03-30-2023 Neutrophils (Bld) [#/Vol] 7.3 10*3/uL 1.8-7.7 [facility] Neutrophils/100 WBC Auto (Bl d)Ordered By: Griselda Krause on 03-30-2023 Neutrophils/100 WBC (Bld) 73.8 % . [facility] No Panel InformationOrdered By: Griselda Krause on 03-30-2023 Estimated GFR (CKD-EPI) > 60.0 mL/Min [facility] Creatinine Clearance (Chem N/A [facility] Nucleated erythrocytes [Pres ence] in Blood by Automated countOrdered By: Griselda Krause on 03-30-2023 Nucleated RBC Auto Ql (Bld) 0.1 /100{WBC} 0-0.5 [facility] Platelet mean volume Auto (B ld) [Entitic vol]Ordered By: Griselda Krause on 03-30-2023 Platelet mean volume (Bld) [Entitic vol] 9.2 fL 6.6-10.1 [facility] Platelets Auto (Bld) [#/Vol] Ordered By: Griselda Krause on 03-30-2023 Platelets (Bld) [#/Vol] 221 10*3/uL 150-450 [facility] Potassium [Moles/volume] in Serum or PlasmaOrdered By: Griselda Krause on 03-30-2023 Potassium [Moles/Vol] 4.1 mmol/L 3.5-5.1 [facility] Protein [Mass/volume] in Ser um or PlasmaOrdered By: Griselda Krause on 03-30-2023 Protein [Mass/Vol] 6.1 g/dL 6.4-8.9 [facility] RBC Auto (Bld) [#/Vol]Ordere d By: Griselda Krause on 03-30-2023 RBC (Bld) [#/Vol] 4.26 10*6/uL 3.90-5.60 [facility] Serum or plasma albumin/glob ulin mass ratioOrdered By: Griselda Krause on 03-30-2023 Albumin/Globulin [Mass ratio] 2.2 {ratio} [facility] Serum or plasma anion gap de terminationOrdered By: Griselda Krause on 03-30-2023 Anion gap [Moles/Vol] 12.1 mmol/L 6.0-15.0 [facility] Serum or plasma high density lipoprotein (HDL) cholesterol measurementOrdered By: Griselda Krause on 03-30-2023 Cholesterol in HDL [Mass/Vol] 44 mg/dL 23-92 [facility] Comment on above: HDL CHOL ATP-III CLA SSIFICATION Cardiovascular RiskHDL > or equal to 60 mg/dL LOWHDL < 40 mg/dL HIGH Serum or plasma total choles terol/high density lipoprotein (HDL) cholesterol mass ratOrdered By: Griselda Krause on 03-30-2023 Cholesterol.total/Chol esterol in HDL [Mass ratio] 5.1 {ratio} <5.0 [facility] Sodium [Moles/volume] in Ser um or PlasmaOrdered By: Griselda Krause on 03-30-2023 Sodium [Moles/Vol] 138 mmol/L 136-145 [facility] Thyrotropin [Units/volume] i n Serum or PlasmaOrdered By: Griselda Krause on 03-30-2023 TSH Qn 0.93 m[IU]/L 0.45-5.33 [facility] Triglyceride [Mass/volume] i n Serum or PlasmaOrdered By: Griselda Krause on 03-30-2023 Triglyceride [Mass/Vol] 159 mg/dL 0-149 [facility] Comment on above: TRIG ATP III CLASSIF ICATIONTRIG less than 150 mg/dL NormalTRIG 150-199 mg/dL Borderline highTRIG 200-500 mg/dL High TRIG greater than 500 mg/dL Very highStandard traceable to the Center for Disease Conrtrol and Prevention (CDC) test method. Urea nitrogen [Mass/volume] in Serum or PlasmaOrdered By: Griselda Krause on 03-30-2023 Urea nitrogen [Mass/Vol] 10 mg/dL 7-25 [facility] WBC Auto (Bld) [#/Vol]Ordere d By: Griselda Krause on 03-30-2023 WBC (Bld) [#/Vol] 10.0 10*3/uL 4.1-10.5 [facility] COVID-19 SOFIAOrdered By: Ti fiona Gaytan on 02-26-2023 SARS-CoV+SARS-CoV-2 (COVID-19) Ag IA.rapid Ql (Resp) Negative Negative [facility] Comment on above: This is a duplicate Anna SARS Antigen (JAMILA) result to be used for statistical tracking purpose only. No Panel InformationOrdered By: Daniel Gaytan on 02-26-2023 SARS Antigen (LFIA) [facility] SARS Antigen (LFIA) [facility] No Panel Informationon 12-28 XR Pain Management C ase (Reference Range: not available) *FINAL Date of Service: 12/28/2022 08:49 Adm #: [id number] Reading Dr:RICARDO CAPPS Signoff Dr: RICARDO CAPPS PROCEDURE: PAIN MANAGEMENT CASE - BXR 0999 REASON FOR EXAM: SPONDYLOSIS W/O MYELOPATHY OR RADICULOPATHY, CERVICAL REGION RESULT: Patient Name: JOVANI MELENDEZ STUDY: PAIN MANAGEMENT CASE INDICATION: SPONDYLOSIS W/O MYELOPATHY OR RADICULOPATHY, CERVICAL REGION COMPARISON: None. ACCESSION NUMBER(S): [id number] ORDERING CLINICIAN: LIMA JOSEPH TECHNIQUE: See below: FINDINGS: Fluoroscopy was provided during therapeutic puncture in the region of the cervical spine for pain management. Total fluoroscopy time: 14.56mgy, images: 4. IMPRESSION: Fluoroscopy for pain management. Dictation workstation: [id number] Original Interpreting Physician: RICARDO CAPPS M.D. Original Transcribed by/Date: MMODAL Dec 28 2022 6:14A Original Electronically Signed by/Date: RICARDO CAPPS M.D. Dec 28 2022 9:04A Addendum Interpreting Physician: Addendum Transcribed by/Date: NO ADDENDUM Addendum Electronically Signed by/Date: [facility] Fermentalg Quick Strepon 12-05-2022 S. pyogenes Org specific cx Ql (Throat) Negative [facility] Other Quick Strep [facility] Other CT Chest W contrast Tristin IMPRESSION: Stable [...] any questions regarding this interpretation, please call [phone]. If you are unable to reach us at the number above, please feel free [facility] [phone][facility] DIVISION OF RADIOLOGY * * *Final Report* * * DATE OF EXAM: Oct 27 2022 11:44AM [facility] 0539 - CT CHEST W IVCON [...] No abnormality in the imaged upper abdomen. Painter Sign Maintenance (topogram) images: No additional findings. DIVISION OF RADIOLOGY Provider, [facility] - 10/30/2022 * * *Final Report* * * DATE OF EXAM: Oct 27 2022 11:44AM [facility] 0539 - CT CHEST W IVCON [...] No abnormality in the imaged upper abdomen. Painter Sign Maintenance (topogram) images: No additional findings. IMPRESSION IMPRESSION: [...] any questions regarding this interpretation, please call [phone]. If you are unable to reach us at the number above, please feel free to contact [facility] at [phone]. [facility] [place] CBC W Auto Differential pane l (Bld)on 10-27-2022 Basophils (Bld) [#/Vol] 0.03 10*3/uL [facility] Basophils/100 WBC (Bld) 0.3 % [facility] Differential cell count method Nom (Bld) Auto [facility] Eosinophils (Bld) [#/Vol] 0.06 10*3/uL [facility] Eosinophils/100 WBC (Bld) 0.7 % [facility] Erythrocyte distribution width (RBC) [Ratio] 14.0 % 11.5 - 15.0 % [facility] Hematocrit (Bld) [Volume fraction] 43.5 % 39.0 - 51.0 % [facility] Hemoglobin (Bld) [Mass/Vol] 14.5 g/dL 13.0 - 17.0 g/dL [facility] Immature granulocytes (Bld) [#/Vol] 0.03 10*3/uL [facility] Immature granulocytes/100 WBC (Bld) 0.3 % [facility] Lymphocytes (Bld) [#/Vol] 2.00 10*3/uL [facility] Lymphocytes/100 WBC (Bld) 21.9 % [facility] MCH (RBC) [Entitic mass] 31.3 pg 26.0 - 34.0 pg [facility] MCHC (RBC) [Mass/Vol] 33.3 g/dL 30.5 - 36.0 g/dL [facility] MCV (RBC) [Entitic vol] 93.8 fL 80.0 - 100.0 fL [facility] Monocytes (Bld) [#/Vol] 0.53 10*3/uL [facility] Monocytes/100 WBC (Bld) 5.8 % [facility] Neutrophils (Bld) [#/Vol] 6.47 10*3/uL [facility] Neutrophils/100 WBC (Bld) 71.0 % [facility] Nucleated RBC (Bld) [#/Vol] [facility] Nucleated RBC/100 WBC (Bld) [Ratio] 0.0 % /100 WBC [facility] Platelet mean volume (Bld) [Entitic vol] 10.8 fL 9.0 - 12.7 fL [facility] Platelets (Bld) [#/Vol] 253 10*3/uL [facility] RBC (Bld) [#/Vol] 4.64 10*6/uL 4.20 - 6.00 m/uL [facility] WBC (Bld) [#/Vol] 9.12 10*3/uL [facility] CT Neck W contrast Tristin 05- IMPRESSION: Primary NIRADS Category: 1. Expected post-treatment changes in the neck without evidence of recurrent disease in the primary site. Neck NIRADS Category: 1. No evidence of abnormal lymph nodes. [email or web address] Transcribe Date/Time: Oct 27 2022 11:56A Dictated by: KATJA HAMPTON MD This examination was interpreted and the report reviewed and electronically signed by: KATJA HAMPTON MD on Oct 27 2022 12:14PM EST Thank you for allowing us to participate in the care of your patient. Should there be any questions regarding this interpretation, please call [phone]. If you are unable to reach us at the number above, please feel free to contact [facility]iology at [phone]. 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 Parotid and submandibular spaces are normal. Assistant Case Manager spaces appear normal. Infrahyoid Neck: Hypopharynx, larynx, [...] consolidation or mass. 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 Parotid and submandibular spaces are normal. Assistant Case Manager spaces appear normal. Infrahyoid Neck: Hypopharynx, larynx, [...] evidence of abnormal lymph nodes. [email or web address] Transcribe Date/Time: Oct 27 2022 11:56A Dictated by: KATJA HAMPTON MD This examination was interpreted and the report reviewed and electronically signed by: KATJA HAMPTON MD on Oct 27 2022 12:14PM EST Thank you for allowing us to participate in the care of your patient. Should there be any questions regarding this interpretation, please call [phone]. If you are unable to reach us at the number above, please feel free to contact [facility] at [phone]. [facility] CT Neck W contrast IVOrdered By: Dacia Provider on 10-27-2022 [facility] Comprehensive metabolic 2000 panelOrdered By: Kelly Goodson on 10-27-2022 Albumin [Mass/Vol] 4.3 g/dL 3.9 - 4.9 g/dL [facility] ALP [Catalytic activity/Vol] 89 U/L 38 - 113 U/L [facility] ALT [Catalytic activity/Vol] 7 U/L Low 10 - 54 U/L [facility] Anion gap [Moles/Vol] 10 mmol/L 9 - 18 mmol/L [facility] AST [Catalytic activity/Vol] 8 U/L Low 14 - 40 U/L [facility] Bilirubin [Mass/Vol] 0.3 mg/dL 0.2 - 1 .3 mg/dL [facility] Calcium [Mass/Vol] 9.6 mg/dL 8.5 - 10. 2 mg/dL [facility] Chloride [Moles/Vol] 104 mmol/L 97 - 10 5 mmol/L [facility] CO2 [Moles/Vol] 27 mmol/L 22 - 30 mmol/L [facility] Creatinine [Mass/Vol] 0.93 mg/dL 0.73 - 1.22 mg/dL [facility] GFR/1.73 sq M.predicted among non-blacks MDRD (S/P/Bld) [Vol rate/Area] 95 mL/min/{1.73_m2} - PINF [facility] Comment on above: Estimated Glomerular Filtration Rate [...] [Mass/Vol] 98 mg/dL 74 - 99 mg/dL [facility] Comment on above: The [place] Diabete s Association (ADA) provides guidance for [...] Standards of Medical Care in Diabetes 2016, [place] [employer] Association. Diabetes Care. 2016.39(Suppl 1). Interpretation and review of laboratory results Abnormal [facility] Potassium [Moles/Vol] 4.5 mmol/L 3.7 - 5.1 mmol/L [facility] Protein [Mass/Vol] 6.6 g/dL 6.3 - 8.0 g/dL [facility] Sodium [Moles/Vol] 141 mmol/L 136 - 144 mmol/L [facility] Urea nitrogen [Mass/Vol] 12 mg/dL 9 - 24 mg/dL [facility] No Panel Informationon 10-27 Radiology Study observation (narrative) [facility] Alanine aminotransferase [En zymatic activity/volume] in Serum or PlasmaOrdered By: Griselda Krause on 10-24-2022 ALT [Catalytic activity/Vol] 7 U/L 7-52 [facility] Albumin [Mass/volume] in Ser um or Plasma by Bromocresol green (BCG) dye binding methoOrdered By: Griselda Krause on 10-24-2022 Albumin BCG dye [Mass/Vol] 4.2 g/dL 3.5-5.7 [facility] Alkaline phosphatase [Enzyma tic activity/volume] in Serum or PlasmaOrdered By: Griselda Krause on 10-24-2022 ALP [Catalytic activity/Vol] 76 U/L 34-104 [facility] Aspartate aminotransferase [ Enzymatic activity/volume] in Serum or PlasmaOrdered By: Griselda Krause on 10-24-2022 AST [Catalytic activity/Vol] 10 U/L 13-39 [facility] Basophils Auto (Bld) [#/Vol] Ordered By: Griselda Krause on 10-24-2022 Basophils (Bld) [#/Vol] 0.0 10*3/uL 0.0-0.2 [facility] Basophils/100 WBC Auto (Bld) Ordered By: Griselda Krause on 10-24-2022 Basophils/100 WBC (Bld) 0.9 % . [facility] Bilirubin.total [Mass/volume ] in Serum or PlasmaOrdered By: Griselda Krause on 10-24-2022 Bilirubin [Mass/Vol] 0.4 mg/dL 0.3-1.0 [facility] Calcium [Mass/volume] in Ser um or PlasmaOrdered By: Griselda Krause on 10-24-2022 Calcium [Mass/Vol] 9.1 mg/dL 8.6-10.3 [facility] Carbon dioxide, total [Moles /volume] in Serum or PlasmaOrdered By: Griselda Krause on 10-24-2022 CO2 [Moles/Vol] 28.3 mmol/L 21.0-31.0 [facility] Chloride [Moles/volume] in [place] or PlasmaOrdered By: Griselda Krause on 10-24-2022 Chloride [Moles/Vol] 105 mmol/L 98-107 [facility] Cholesterol [Mass/volume] in Serum or PlasmaOrdered By: Griselda Krause on 10-24-2022 Cholesterol [Mass/Vol] 240 mg/dL 140-200 [facility] Comment on above: Chol less than 200 m g/dl low riskChol 201-239 mg/dl borderline riskChol 240 mg/dl and greater high risk Cholesterol in LDL Calc [Mas s/Vol]Ordered By: Griselda Krause on 10-24-2022 Cholesterol in LDL [Mass/Vol] 169 mg/dL 0-100 [facility] Comment on above: LDL ATP III CLASSIFI CATIONLDL less than 100 mg/dL OptimalLDL 100-129 mg/dL Near or above optimalLDL 130-159 mg/dL Borderline highLDL 160-189 mg/dL HighLDL greater than 189 mg/dL Very high Cholesterol in VLDL Calc [Ma ss/Vol]Ordered By: Griselda Krause on 10-24-2022 Cholesterol in VLDL [Mass/Vol] 35 mg/dL [facility] Creatinine [Mass/volume] in Serum or PlasmaOrdered By: Griselda Krause on 10-24-2022 Creatinine [Mass/Vol] 0.88 mg/dL 0.70-1.30 [facility] Eosinophils Auto (Bld) [#/Vo l]Ordered By: Griselda Krause on 10-24-2022 Eosinophils (Bld) [#/Vol] 0.1 10*3/uL 0.0-0.45 [facility] Eosinophils/100 WBC Auto (Bl d)Ordered By: Griselda Krause on 10-24-2022 Eosinophils/100 WBC (Bld) 2.0 % . [facility] Erythrocyte distribution wid th Auto (RBC) [Ratio]Ordered By: Griselda Krause on 10-24-2022 Erythrocyte distribution width (RBC) [Ratio] 14.7 % 12.0-14.8 [facility] Globulin Calc (S) [Mass/Vol] Ordered By: Griselda Krause on 10-24-2022 Globulin (S) [Mass/Vol] 2.1 g/dL [facility] Glucose [Mass/volume] in Ser um or PlasmaOrdered By: Griselda Krause on 10-24-2022 Glucose [Mass/Vol] 82 mg/dL 70-100 [facility] Comment on above: ADA recommended refe rence rangeRandom Glucose Reference Range is dependent on time and content of last meal. Glucose of more than 200 mg/dL in a nonstressed, ambulatory subject supports the diagnosis of Diabetes Mellitus. Hematocrit Auto (Bld) [Volum e fraction]Ordered By: Griselda Krause on 10-24-2022 Hematocrit (Bld) [Volume fraction] 43.4 % 38.8-50.0 [facility] Hemoglobin [Mass/volume] in BloodOrdered By: Griselda Krause on 10-24-2022 Hemoglobin (Bld) [Mass/Vol] 14.5 g/dL 13.0-17.0 [facility] Leukocytes [#/volume] correc mone for nucleated erythrocytes in Blood by Automated counOrdered By: Griselda Krause on 10-24-2022 WBC corrected for nucl RBC Auto (Bld) [#/Vol] 5.0 10*3/uL 4.1-10.5 [facility] Lymphocytes Auto (Bld) [#/Vo l]Ordered By: Griselda Krause on 10-24-2022 Lymphocytes (Bld) [#/Vol] 2.0 10*3/uL 1.00-4.8 [facility] Lymphocytes/100 WBC Auto (Bl d)Ordered By: Griselda Krause on 10-24-2022 Lymphocytes/100 WBC (Bld) 39.8 % . [facility] MCH Auto (RBC) [Entitic mass ]Ordered By: Griselda Krause on 10-24-2022 MCH (RBC) [Entitic mass] 31.5 pg 27.5-35.2 [facility] MCHC Auto (RBC) [Mass/Vol]Or dered By: Griselda Krause on 10-24-2022 MCHC (RBC) [Mass/Vol] 33.5 g/dL 32.5-35.6 [facility] MCV Auto (RBC) [Entitic vol] Ordered By: Griselda Krause on 10-24-2022 MCV (RBC) [Entitic vol] 94.0 fL 83.5-101 [facility] Monocytes Auto (Bld) [#/Vol] Ordered By: Griselda Krause on 10-24-2022 Monocytes (Bld) [#/Vol] 0.3 10*3/uL 0.0-0.8 [facility] Monocytes/100 WBC Auto (Bld) Ordered By: Griselda Krause on 10-24-2022 Monocytes/100 WBC (Bld) 5.4 % . [facility] Neutrophils Auto (Bld) [#/Vo l]Ordered By: Griselda Krause on 10-24-2022 Neutrophils (Bld) [#/Vol] 2.6 10*3/uL 1.8-7.7 [facility] Neutrophils/100 WBC Auto (Bl d)Ordered By: Griselda Krause on 10-24-2022 Neutrophils/100 WBC (Bld) 51.9 % . [facility] No Panel InformationOrdered By: Griselda Krause on 10-24-2022 Estimated GFR (CKD-EPI) > 60.0 mL/Min [facility] Creatinine Clearance (Chem N/A [facility] Nucleated erythrocytes [Pres ence] in Blood by Automated countOrdered By: Griselda Krause on 10-24-2022 Nucleated RBC Auto Ql (Bld) 0.1 /100{WBC} 0-0.5 [facility] Platelet mean volume Auto (B ld) [Entitic vol]Ordered By: Griselda Krause on 10-24-2022 Platelet mean volume (Bld) [Entitic vol] 9.6 fL 6.6-10.1 [facility] Platelets Auto (Bld) [#/Vol] Ordered By: Griselda Krause on 10-24-2022 Platelets (Bld) [#/Vol] 247 10*3/uL 150-450 [facility] Potassium [Moles/volume] in Serum or PlasmaOrdered By: Griselda Krause on 10-24-2022 Potassium [Moles/Vol] 4.0 mmol/L 3.5-5.1 [facility] Prostate specific Ag [Mass/v olume] in Serum or PlasmaOrdered By: Griselda Krause on 10-24-2022 Prostate specific Ag [Mass/Vol] 0.370 ng/mL 0.000-4.00 0 [facility] Protein [Mass/volume] in Ser um or PlasmaOrdered By: Griselda Krause on 10-24-2022 Protein [Mass/Vol] 6.3 g/dL 6.4-8.9 [facility] RBC Auto (Bld) [#/Vol]Ordere d By: Griselda Krause on 10-24-2022 RBC (Bld) [#/Vol] 4.61 10*6/uL 3.90-5.60 [facility] Serum or plasma albumin/glob ulin mass ratioOrdered By: Griselda Krause on 10-24-2022 Albumin/Globulin [Mass ratio] 2.0 {ratio} [facility] Serum or plasma anion gap de terminationOrdered By: Griselda Krause on 10-24-2022 Anion gap [Moles/Vol] 11.7 mmol/L 6.0-15.0 [facility] Serum or plasma high density lipoprotein (HDL) cholesterol measurementOrdered By: Griselda Krause on 10-24-2022 Cholesterol in HDL [Mass/Vol] 36 mg/dL 29- [facility] Comment on above: HDL CHOL ATP-III CLA SSIFICATION Cardiovascular RiskHDL > or equal to 60 mg/dL LOWHDL < 40 mg/dL HIGH Serum or plasma total choles terol/high density lipoprotein (HDL) cholesterol mass ratOrdered By: Griselda Krause on 10-24-2022 Cholesterol.total/Chol esterol in HDL [Mass ratio] 6.7 {ratio} <5.0 [facility] Sodium [Moles/volume] in Ser um or PlasmaOrdered By: Griselda Krause on 10-24-2022 Sodium [Moles/Vol] 141 mmol/L 136-145 [facility] Thyrotropin [Units/volume] i n Serum or PlasmaOrdered By: Griselda Krause on 10-24-2022 TSH Qn 1.26 m[IU]/L 0.45-5.33 [facility] Triglyceride [Mass/volume] i n Serum or PlasmaOrdered By: Griselda Krause on 10-24-2022 Triglyceride [Mass/Vol] 175 mg/dL 0-149 [facility] Comment on above: TRIG ATP III CLASSIF ICATIONTRIG less than 150 mg/dL NormalTRIG 150-199 mg/dL Borderline highTRIG 200-500 mg/dL High TRIG greater than 500 mg/dL Very highStandard traceable to the Center for Disease Conrtrol and Prevention (CDC) test method. Urea nitrogen [Mass/volume] in Serum or PlasmaOrdered By: Griselda Krause on 10-24-2022 Urea nitrogen [Mass/Vol] 15 mg/dL 7-25 [facility] WBC Auto (Bld) [#/Vol]Ordere d By: Griselda Krause on 10-24-2022 WBC (Bld) [#/Vol] 5.0 10*3/uL 4.1-10.5 [facility] BRIEF OP NOTon 09-28-2022 BRIEF OP NOT HNO ID: [id number] Author: Demond Cat APRN.CNP Service: Interventional Radiology Author Type: Nurse Practitioner Type: Brief Op Note Filed: 09/28/2022 3:14 PM Note Text: BRIEF OPERATIVE / PROCEDURE NOTE LOG ID: [id number] SURGERY/PROCEDURE DATE: 09/28/2022 INCISION/PROCEDURE START TIME: 1:58 PM INCISION CLOSE/PROCEDURE END TIME: 2:27 PM SURGEON(S)/PROCEDURALIST( S) AND DISTRIBUTION DISTRICT SUPERVISOR(S): Surgeon(s) and Role: * Demond Cat APRN.FIBER MACHINE TENDER - Primary No Additional Staff SURGERY/PROCEDURE(S): LP [...] DATE: September 28, 2022 TIME: 3:10 PM [facility] IR LUMBAR PUNCTURE DIAGon IR LUMBAR PUNCTURE DIAG * * *Final Report* * * DATE OF EXAM: Sep 28 2022 2:41PM [facility] 7594 - IR LUMBAR PUNCTURE DIAG [...] guidance was performed in conjunction with the apprentice technician. Plane A, Air Kerma: 20.0 mGy Dose Area Product (DAP): 67013.1 mGy*cm2 Fluoro time: 3:54 min: sec Post-Procedure: [...] procedure was performed by: Demond Cat APRN.CNP Measuring Machine Tender: HARPER Transcribe Date/Time: Sep 28 2022 3:15P Dictated by : DEMOND CAT CNP This examination was interpreted and the report reviewed and electronically signed by: DEMOND CAT CNP on Sep 28 2022 3:22PM EST [id number] [facility] NURSING PROGon 09-28-2022 NURSING PROG HNO ID: [id number] Author: Court Magana RN Service: Nursing Author [...] Care Provider Electronically Signed By: Court Magana [facility] MRI BRAIN WO/W IVCONon 09-22 [facility] COVID + FLU Quick Testingon 08-01-2022 SARS-CoV-2 (COVID-19) RNA JER+probe Ql (Unsp spec) Negative [facility] Other COVID + FLU Quick Testing neagative [facility] Other COVID + FLU Quick Testing Negative [employer] [facility] [employer] Other RSVon 08-01-2022 RSV Ag IA Ql (Unsp spec) Positive [employer] [facility] [employer] Other Cerebrospinal fluid post-valdez trifugation appearance determinationOrdered By: Evli Cadena on 07-17-2022 Appearance (Spun CSF) Colorless Colorless [facility] Cerebrospinal fluid sample t ube volume measurementOrdered By: Elvi Cadena on 07-17-2022 Specimen volume (CSF) 22.0 mL [facility] Color CSFOrdered By: Elvi Cadena on 07-17-2022 Color (CSF) Colorless Colorless [facility] Manual cerebrospinal fluid e rythrocytes count (number/volume)Ordered By: Elvi Cadena on 07-17-2022 RBC Manual cnt (CSF) [#/Vol] 0 /uL [facility] Comment on above: The reference interv al and other method performance specifications have not been established for this body fluid. The test result must be integrated into the clinical context for interpretation. No Panel InformationOrdered By: Elvi Cadena on 07-17-2022 CSF Appearance Clear Clear [facility] CSF Tube Number Tube number: 1 [facility] [facility] Nucle[facility] cells [#/volume] i n Cerebral spinal fluid by Manual countOrdered By: Elvi Cadena on 07-17-2022 Nucleated cells Manual cnt (CSF) [#/Vol] 0.003 10*3/uL 0-5 [facility] Activated partial thrombopla stin time (aPTT) in platelet poor plasma by coagulation aOrdered By: Landy Wong on 04-16-2022 aPTT Coag (PPP) [Time] 32.8 s 25.1-36.5 [facility] Basophils Auto (Bld) [#/Vol] Ordered By: Landy Wong on 04-16-2022 Basophils (Bld) [#/Vol] 0.1 10*3/uL 0.0-0.2 [facility] Basophils/100 WBC Auto (Bld) Ordered By: Landy Wong on 04-16-2022 Basophils/100 WBC (Bld) 1.2 % . [facility] Creatine kinase [Enzymatic a ctivity/volume] in Serum or PlasmaOrdered By: Landy Wong on 04-16-2022 CK [Catalytic activity/Vol] 69 U/L 22-269 [facility] Creatinine and Glomerular fi ltration rate.predicted panel (S/P/Bld)Ordered By: Landy Wong on 04-16-2022 Creatinine [Mass/Vol] 0.97 mg/dL 0.64-1.27 [facility] Eosinophils Auto (Bld) [#/Vo l]Ordered By: Landy Wong on 04-16-2022 Eosinophils (Bld) [#/Vol] 0.1 10*3/uL 0.0-0.45 [facility] Eosinophils/100 WBC Auto (Bl d)Ordered By: Landy Wong on 04-16-2022 Eosinophils/100 WBC (Bld) 1.2 % . [facility] Erythrocyte distribution wid th Auto (RBC) [Ratio]Ordered By: Landy Wong on 04-16-2022 Erythrocyte distribution width (RBC) [Ratio] 14.1 % 12.0-14.8 [facility] Estimated glomerular filtrat ion rate (GFR) non- AmericanOrdered By: Landy Wong on 04-16-2022 GFR/1.73 sq M.predicted among non-blacks MDRD (S/P/Bld) [Vol rate/Area] > 60 mL/Min [facility] Hematocrit Auto (Bld) [Volum e fraction]Ordered By: Landy Wong on 04-16-2022 Hematocrit (Bld) [Volume fraction] 43.2 % 38.8-50.0 [facility] Hemoglobin [Mass/volume] in BloodOrdered By: Landy Wong on 04-16-2022 Hemoglobin (Bld) [Mass/Vol] 14.7 g/dL 13.0-17.0 [facility] Laboratory - Chemistry and C hemistry - challengeOrdered By: Landy Wong on 04-16-2022 Natriuretic peptide B (Bld) [Mass/Vol] 29.0 pg/mL 5-100 [facility] Laboratory - CoagulationOrde red By: Landy Wong on 04-16-2022 PT Coag (PPP) [Time] 12.0 s 9.0-12.9 [facility] Laboratory - Hematology and Cell countsOrdered By: Landy Wong on 04-16-2022 Nucleated RBC/100 WBC (Bld) [Ratio] 0.1 % 0-0.5 [facility] Leukocytes [#/volume] in Blo od by Automated countOrdered By: Landy Wong on 04-16-2022 WBC (Bld) [#/Vol] 7.7 10*3/uL 4.5-11.0 [facility] Lymphocytes Auto (Bld) [#/Vo l]Ordered By: Landy Wong on 04-16-2022 Lymphocytes (Bld) [#/Vol] 2.3 10*3/uL 1.00-4.8 [facility] Lymphocytes/100 WBC Auto (Bl d)Ordered By: Landy Wong on 04-16-2022 Lymphocytes/100 WBC (Bld) 29.4 % . [facility] MCH Auto (RBC) [Entitic mass ]Ordered By: Landy Wong on 04-16-2022 MCH (RBC) [Entitic mass] 32.0 pg 27.5-35.2 [facility] MCHC Auto (RBC) [Mass/Vol]Or dered By: Landy Wong on 04-16-2022 MCHC (RBC) [Mass/Vol] 34.0 g/dL 32.5-35.6 [facility] MCV Auto (RBC) [Entitic vol] Ordered By: Landy Wong on 04-16-2022 MCV (RBC) [Entitic vol] 94.0 fL 83.5-101 [facility] Monocytes Auto (Bld) [#/Vol] Ordered By: Landy Wong on 04-16-2022 Monocytes (Bld) [#/Vol] 0.6 10*3/uL 0.0-0.8 [facility] Monocytes/100 WBC Auto (Bld) Ordered By: Landy Wong on 04-16-2022 Monocytes/100 WBC (Bld) 7.7 % . [facility] Neutrophils Auto (Bld) [#/Vo l]Ordered By: Landy Wong on 04-16-2022 Neutrophils (Bld) [#/Vol] 4.7 10*3/uL 1.8-7.7 [facility] Neutrophils/100 WBC Auto (Bl d)Ordered By: Landy Wong on 04-16-2022 Neutrophils/100 WBC (Bld) 60.5 % . [facility] No Panel InformationOrdered By: Landy Wong on 04-16-2022 D-Dimer Quantitative (PE/DVT) < 200 ng/mL 0-243 [facility] Comment on above: The reference range [...] conditions. Estimated GFR () > 60 mL/Min [facility] Comment on above: GFR estimated refere nce range: According to KDOQI guidelines, <60 ml/min/1.73m2 is sufficient to diagnose a patient with chronic kidney disease. Pharmacy Creatinine Clearance (Chem 79.33 [facility] Platelet mean volume Auto (B ld) [Entitic vol]Ordered By: Landy Wong on 04-16-2022 Platelet mean volume (Bld) [Entitic vol] 9.7 fL 6.6-10.1 [facility] Platelet poor plasma interna tional normalized ratio (INR) by coagulation assay (relatOrdered By: Landy Wong on 04-16-2022 INR Coag (PPP) [Relative time] 1.1 {INR} [facility] Comment on above: INR Therapeutic Rang [...] 04-16-2022 Platelets (Bld) [#/Vol] 238 10*3/uL 150-450 [facility] RBC Auto (Bld) [#/Vol]Ordere d By: Landy Wong on 04-16-2022 RBC (Bld) [#/Vol] 4.59 10*6/uL 3.90-5.60 [facility] Serum or plasma anion gap de terminationOrdered By: Landy Wong on 04-16-2022 Anion gap [Moles/Vol] 12.4 mmol/L 6.0-15.0 [facility] Serum or plasma calcium paramjit urement (mass/volume)Ordered By: Landy Wong on 04-16-2022 Calcium [Mass/Vol] 9.0 mg/dL 8.2-10.2 [facility] Serum or plasma chloride robby surement (moles/volume)Ordered By: Landy Wong on 04-16-2022 Chloride [Moles/Vol] 103 mmol/L 95-114 [facility] Serum or plasma creatine kin ase MB (CKMB)/total creatine kinase (CK) ratio by calculaOrdered By: Landy Wong on 04-16-2022 CK.MB Calc [Catalytic fraction] 2.0 % 0.00-2.50 [facility] Serum or plasma creatine kin ase MB measurement (mass/volume)Ordered By: Landy Wong on 04-16-2022 CK.MB [Mass/Vol] 1.4 ng/mL 0.6-6.3 [facility] Serum or plasma glucose paramjit urement (mass/volume)Ordered By: Landy Wong on 04-16-2022 Glucose [Mass/Vol] 88 mg/dL 70-100 [facility] Comment on above: ADA recommended refe rence rangeRandom Glucose Reference Range is dependent on time and content of last meal. Glucose of more than 200 mg/dL in a nonstressed, ambulatory subject supports the diagnosis of Diabetes Mellitus. Serum or plasma potassium me asurement (moles/volume)Ordered By: Landy Wong on 04-16-2022 Potassium [Moles/Vol] 4.3 mmol/L 3.5-5.1 [facility] Serum or plasma sodium measu rement (moles/volume)Ordered By: Landy Wong on 04-16-2022 Sodium [Moles/Vol] 135 mmol/L 136-146 [facility] Serum or plasma total carbon dioxide measurement (moles/volume)Ordered By: Landy Wong on 04-16-2022 CO2 [Moles/Vol] 23.9 mmol/L 22.0-30.0 [facility] Serum or plasma urea nitroge n measurement (mass/volume)Ordered By: Landy Wong on 04-16-2022 Urea nitrogen [Mass/Vol] 12 mg/dL 03-10 [facility] Troponin I.cardiac [Mass/vol ume] in Serum or Plasma by High sensitivity methodOrdered By: Landy Wong on 04-16-2022 Troponin I.cardiac High sensitivity method [Mass/Vol] 5 pg/mL 0- [facility] COVID Quick Testingon 2021 Result Negative [facility] Other Quick Fluon 03-16-2022 FLUAV Ab CF (S) [Titer] Negative [facility] Other FLUBV Ab CF (S) [Titer] Negative [facility] Other MRI Brain w/o + w/on 022 [...] by Jillian Morales on 01/18/2022 1413 Normal [facility] Cell Count + Differential, C SFon 11-07-2021 WBC (Bld) [#/Vol] 0.006 10*3/uL above high threshold 0 - 5 [facility] [employer] Work Phone: [phone] Cell Count + Differential, CSF 70 1 [facility] [employer] Work Phone: [phone] Cell Count + Differential, CSF 10 % [facility] [employer] Work Phone: [phone] Cell Count + Differential, CSF 60 % [facility] [employer] Work Phone: [phone] Cell Count + Differential, CSF 30 % [facility] [employer] Work Phone: [phone] Cell Count + Differential, CSF Colorless COLORLESS [facility] [employer] Work Phone: [phone] Cell Count + Differential, CSF 245 /uL above high threshold 0 - 5 [facility] [employer] Work Phone: [phone] Cell Count + Differential, CSF Tube 1 [facility] [employer] Work Phone: [phone] Cell Count + Differential, CSF Clear CLEAR [facility] [employer] Work Phone: [phone] Cult, CSF, includes smearon 11-07-2021 Bacteria identified Cx Nom (CSF) [facility] [employer] Work Phone: [phone] Laboratoryon 11-07-2021 Albumin in CSF/Albumin in Serum or Plasma (S/P+CSF) [Relative ratio] 7.9 {ratio} 0.0-9.0 [facility] [employer] Work Phone: [phone] Albumin in CSF/Albumin in Serum or Plasma (S/P+CSF) [Relative ratio] Canceled [facility] Work Phone: [phone] Laboratory - Chemistry and C hemistry - challengeon 11-07-2021 Albumin (CSF) [Mass/Vol] 36 mg/dL above high threshold 0-35 [facility] Work Phone: [phone] Albumin [Mass/Vol] 4578 mg/dL 5300-4594 [facility] [employer] Work Phone: [phone] IgG (CSF) [Mass/Vol] 2.2 mg/dL 0.0-6.0 [facility] [employer] Work Phone: [phone] IgG [Mass/Vol] 496 mg/dL below low threshold [phone] [facility] [employer] Work Phone: [phone] Comment on above: REFERENCE INTERVAL: Immunoglobulin GAccess complete set of age- and/or gender-specific reference intervals for this test in the [facility] Test Directory (Fair value). IgG clearance/Albumin clearance (S+CSF) [Ratio] 0.56 {ratio} 0.28-0.66 [facility] [employer] Work Phone: [phone] IgG synthesis rate Calc (S+CSF) [Mass/Time] 0.5 mg/d <=8.0 [facility] [employer] Work Phone: [phone] IgG/Albumin (CSF) [Mass ratio] 0.06 {ratio} below low threshold 0.09-0.25 [facility] [employer] Work Phone: [phone] Oligoclonal bands Elph (CSF) [Interp] Negative Negative [facility] Work Phone: [phone] Oligoclonal bands Elph Curtis (CSF) [Interp] See Note [facility] [employer] Work Phone: [phone] Comment on above: Isoelectric focusing /immunofixation revealed no oligoclonal bands in either the CSF or the serum. This is considered to be a negative result for oligoclonal bands. Approximately 5 percent of patients with clinically definitive multiple sclerosis will have a negative result.Performed By: [employer] [place] [address] [id number] Director: Paula Middleton MD Albumin (CSF) [Mass/Vol] [...] Phone: [phone] [facility] Work Phone: Canceled [facility] Work Phone: Path Review, CSFon 2 Path Review, CSF JIMBO [facility] Work Phone: Comment on above: By her/his signature above, the Pathologist listed as making the final interpretation certifies that she/he has personally reviewed this case. HEMORRHAGIC SPECIMEN, NO MALIGNANT CELLS IDENTIFIED. 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 In [...] He saw Dr. Ba a neurologist in [facility]. He describes his vision as seeing [...] MG Oral Tablet Vitals Vital Signs Recorded: [id number] 09:38AM Oyccuprtmke69.2 F Heart Rate63 Qjautnikczk18 Qheeeehr093 Sjgpsexzu91 Blood Pressure Cuff SizeAdult Height5 ft 7.13 in Ryzapl007 lb 6 oz BMI Gnnryywhaf98.05 kg/m2 BSA Calculated1.91 Tobacco Usea) Yes Fall Screeninga) No falls within the last year O2 Sxrdtvyekq53 Pain Scale7 Physical Exam Constitutional - General appearance: No acute distress, well de (more content not included)... 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 In [...] He saw Dr. Ba a neurologist in [facility]. He describes his vision as seeing [...] MG Oral Tablet Vitals Vital Signs Recorded: [id number] 09:38AM Tnrocappnjp47.2 F Heart Rate63 Lavhbhakurt55 Ckdztrdi179 Qmtulxrfi22 Blood Pressure Cuff SizeAdult Height5 ft 7.13 in Ietgwy058 lb 6 oz BMI Zlwjbwfbqu96.05 kg/m2 BSA Calculated1.91 Tobacco Usea) Yes Fall Screeninga) No falls within the last year O2 Nbivftnmvf26 Pain Scale7 Ph (more content not included)... Normal [employer] CBC W Auto Differential pane l (Bld)on 10-06-2021 Basophils (Bld) [#/Vol] 0.06 10*3/uL [facility] Basophils/100 WBC (Bld) 0.8 % [facility] Differential cell count method Nom (Bld) Auto [facility] Eosinophils (Bld) [#/Vol] 0.11 10*3/uL [facility] Eosinophils/100 WBC (Bld) 1.5 % [facility] Erythrocyte distribution width (RBC) [Ratio] 12.8 % 11.5 - 15.0 % [facility] Hematocrit (Bld) [Volume fraction] 43.7 % 39.0 - 51.0 % [facility] Hemoglobin (Bld) [Mass/Vol] 14.6 g/dL 13.0 - 17.0 g/dL [facility] Immature granulocytes (Bld) [#/Vol] [facility] Immature granulocytes/100 WBC (Bld) 0.3 % [facility] Lymphocytes (Bld) [#/Vol] 1.75 10*3/uL [facility] Lymphocytes/100 WBC (Bld) 23.7 % [facility] MCH (RBC) [Entitic mass] 32.7 pg 26.0 - 34.0 pg [facility] MCHC (RBC) [Mass/Vol] 33.4 g/dL 30.5 - 36.0 g/dL [facility] MCV (RBC) [Entitic vol] 98.0 fL 80.0 - 100.0 fL [facility] Monocytes (Bld) [#/Vol] 0.52 10*3/uL [facility] Monocytes/100 WBC (Bld) 7.0 % [facility] Neutrophils (Bld) [#/Vol] 4.92 10*3/uL [facility] Neutrophils/100 WBC (Bld) 66.7 % [facility] Nucleated RBC (Bld) [#/Vol] [facility] Nucleated RBC/100 WBC (Bld) [Ratio] 0.0 % /100 WBC [facility] Platelet mean volume (Bld) [Entitic vol] 10.8 fL 9.0 - 12.7 fL [facility] Platelets (Bld) [#/Vol] 246 10*3/uL [facility] RBC (Bld) [#/Vol] 4.46 10*6/uL 4.20 - 6.00 m/uL [facility] WBC (Bld) [#/Vol] 7.38 10*3/uL [facility] This is an appended report. These results have been appended to a previously verified report. [facility] [place] CT Chest W contrast Tristin IMPRESSION: 1. [...] any questions regarding this interpretation, please call [phone]. If you are unable to reach us at the number above, please feel free to contact [facility] eRadiology at [phone]. ZZZ_DO_NOT_US E_DIVISION OF RADIOLOGY * * *Final Report* * * DATE OF EXAM: Oct 06 2021 8:22AM [facility] 0539 - CT CHEST W IVCON [...] images through the upper abdomen appear stable. Painter Sign Maintenance (topogram) images: No additional findings. ZZZ_DO_NOT_US E_DIVISION OF RADIOLOGY Provider, [facility] - 10/06/2021 * * *Final Report* * * DATE OF EXAM: Oct 06 2021 8:22AM [facility] 0539 - CT CHEST W IVCON [...] images through the upper abdomen appear stable. Painter Sign Maintenance (topogram) images: No additional findings. IMPRESSION IMPRESSION: [...] any questions regarding this interpretation, please call [phone]. If you are unable to reach us at the number above, please feel free to contact [facility] eRadiology at [phone]. [facility] [place] CT Neck W contrast Tristin 04-2 IMPRESSION: [...] any questions regarding this interpretation, please call [phone]. If you are unable to reach us at the number above, please feel free [facility] at [phone]. ZZZ_DO_NOT_US E_DIVISION OF RADIOLOGY * * *Final Report* * * DATE OF EXAM: Oct 06 2021 8:22AM [facility] 0013 - CT NECK SOFT TISSUE [...] carotid siphons. ZZZ_DO_NOT_US E_DIVISION OF RADIOLOGY Provider, [facility] - 10/06/2021 * * *Final Report* * * DATE OF EXAM: Oct 06 2021 8:22AM [facility] 0013 - CT NECK SOFT TISSUE [...] any questions regarding this interpretation, please call [phone]. If you are unable to reach us at the number above, please feel free to contact [facility] eRadiology at [phone]. [facility] CT Neck W contrast IVOrdered By: Ccf Provider on 10-06-2021 [facility] Comprehensive metabolic 2000 panelOrdered By: Micheal Vizcaino on 10-06-2021 Albumin [Mass/Vol] 4.5 g/dL 3.9 - 4.9 g/dL [facility] ALP [Catalytic activity/Vol] 82 U/L 38 - 113 U/L [facility] ALT [Catalytic activity/Vol] 25 U/L 10 - 54 U/L [facility] Anion gap [Moles/Vol] 10 mmol/L 9 - 18 mmol/L [facility] AST [Catalytic activity/Vol] 21 U/L 14 - 40 U/L [facility] Bilirubin [Mass/Vol] 0.6 mg/dL 0.2 - 1 .3 mg/dL [facility] Calcium [Mass/Vol] 9.5 mg/dL 8.5 - 10. 2 mg/dL [facility] Chloride [Moles/Vol] 106 mmol/L High 97 - 10 5 mmol/L [facility] CO2 [Moles/Vol] 29 mmol/L 22 - 30 mmol/L [facility] Creatinine [Mass/Vol] 1.01 mg/dL 0.73 - 1.22 mg/dL [facility] GFR/1.73 sq M.predicted among non-blacks MDRD (S/P/Bld) [Vol rate/Area] 86 mL/min/{1.73_m2} - PINF [facility] Comment on above: Estimated Glomerular Filtration Rate [...] 107 mg/dL High 74 - 99 mg/dL [facility] Comment on above: The [place] Diab[employer] s Association (ADA) provides guidance for [...] Standards of Medical Care in Diabetes 2016, [place] Diabetes Association. Diabetes Care. 2016.39(Suppl 1). Interpretation and review of laboratory results Abnormal [facility] Potassium [Moles/Vol] 4.2 mmol/L 3.7 - 5.1 mmol/L [facility] Protein [Mass/Vol] 6.5 g/dL 6.3 - 8.0 g/dL [facility] Sodium [Moles/Vol] 145 mmol/L High 136 - 144 mmol/L [facility] Urea nitrogen [Mass/Vol] 10 mg/dL 9 - 24 mg/dL [facility] No Panel Informationon 10-06 Radiology Study observation (narrative) [facility] COVID + FLU Quick Testingon 06-30-2021 SARS-CoV-2 (COVID-19) RNA JER+probe Ql (Unsp spec) Negative [employer] [facility] [employer] Other COVID + FLU Quick Testing Negative [facility] Other COVID Quick Testingon 2020 Result Negative [facility] Other Basophils Auto (Bld) [#/Vol] on 09-20-2020 Basophils (Bld) [#/Vol] 0.0 10*3/uL 0.0-0.2 [facility] Basophils/100 WBC Auto (Bld) on 09-20-2020 Basophils/100 WBC (Bld) 0.6 % [facility] Blood hemoglobin measurement (mass/volume)on 09-20-2020 Hemoglobin (Bld) [Mass/Vol] 14.4 g/dL 13.0-17.0 [facility] Blood leukocytes automated c ount (number/volume)on 09-20-2020 WBC (Bld) [#/Vol] 7.4 10*3/uL 4.5-11.0 [facility] Eosinophils Auto (Bld) [#/Vo l]on 09-20-2020 Eosinophils (Bld) [#/Vol] 0.1 10*3/uL 0.0-0.45 [facility] Eosinophils/100 WBC Auto (Bl d)on 09-20-2020 Eosinophils/100 WBC (Bld) 0.9 % [facility] Erythrocyte distribution wid th Auto (RBC) [Ratio]on 09-20-2020 Erythrocyte distribution width (RBC) [Ratio] 14.6 % 12.0-14.8 [facility] Hematocrit Auto (Bld) [Volum e fraction]on 09-20-2020 Hematocrit (Bld) [Volume fraction] 41.7 % 38.8-50.0 [facility] Lymphocytes Auto (Bld) [#/Vo l]on 09-20-2020 Lymphocytes (Bld) [#/Vol] 1.6 10*3/uL 1.00-4.8 [facility] Lymphocytes/100 WBC Auto (Bl d)on 09-20-2020 Lymphocytes/100 WBC (Bld) 21.3 % [facility] MCH Auto (RBC) [Entitic mass ]on 09-20-2020 MCH (RBC) [Entitic mass] 32.4 pg 27.5-35.2 [facility] MCHC Auto (RBC) [Mass/Vol]on 09-20-2020 MCHC (RBC) [Mass/Vol] 34.5 g/dL 32.5-35.6 [facility] MCV Auto (RBC) [Entitic vol] on 09-20-2020 MCV (RBC) [Entitic vol] 93.9 fL 83.5-101 [facility] Monocytes Auto (Bld) [#/Vol] on 09-20-2020 Monocytes (Bld) [#/Vol] 0.6 10*3/uL 0.0-0.8 [facility] Monocytes/100 WBC Auto (Bld) on 09-20-2020 Monocytes/100 WBC (Bld) 8.6 % [facility] Neutrophils Auto (Bld) [#/Vo l]on 09-20-2020 Neutrophils (Bld) [#/Vol] 5.1 10*3/uL 1.8-7.7 [facility] Neutrophils/100 WBC Auto (Bl d)on 09-20-2020 Neutrophils/100 WBC (Bld) 68.6 % [facility] Otheron 09-20-2020 Nucleated RBC/100 WBC (Bld) [Ratio] 0.0 % 0-0.5 [facility] Platelet mean volume Auto (B ld) [Entitic vol]on 09-20-2020 Platelet mean volume (Bld) [Entitic vol] 9.3 fL 6.6-10.1 [facility] Platelets Auto (Bld) [#/Vol] on 09-20-2020 Platelets (Bld) [#/Vol] 182 10*3/uL 150-450 [facility] RBC Auto (Bld) [#/Vol]on RBC (Bld) [#/Vol] 4.44 10*6/uL 3.90-5.60 [facility] Body fluid albumin measureme nt (mass/volume)on 09-13-2020 Albumin (Body fld) [Mass/Vol] 4.3 g/dL 3.2-5.5 [facility] Cholesterol [Mass/volume] in Serum or Plasmaon 09-13-2020 Cholesterol [Mass/Vol] 219 mg/dL 140-200 [facility] Comment on above: Chol less than 200 m g/dl low riskChol 201-239 mg/dl borderline riskChol 240 mg/dl and greater high risk Cholesterol in LDL Calc [Mas s/Vol]on 09-13-2020 Cholesterol in LDL [Mass/Vol] 149 mg/dL 0-100 [facility] Comment on above: LDL ATP III CLASSIFI CATIONLDL less than 100 mg/dL OptimalLDL 100-129 mg/dL Near or above optimalLDL 130-159 mg/dL Borderline highLDL 160-189 mg/dL HighLDL greater than 189 mg/dL Very high Cholesterol in VLDL Calc [Ma ss/Vol]on 09-13-2020 Cholesterol in VLDL [Mass/Vol] 28 mg/dL [facility] Creatinine and Glomerular fi ltration rate.predicted panel (S/P/Bld)on 09-13-2020 Creatinine [Mass/Vol] 0.89 mg/dL 0.64-1.27 [facility] GFR/1.73 sq M.predicted roverto g non-blacks MDRD (S/P/Bld) [Vol rate/Area]on 09-13-2020 GFR/1.73 sq M predicted among non-blacks MDRD (S/P/Bld) [Vol rate/Area] > 60 mL/Min [facility] Globulin Calc (S) [Mass/Vol] on 09-13-2020 Globulin (S) [Mass/Vol] 2.0 g/dL [facility] No Panel Informationon 09-13 Estimated GFR () > 60 mL/Min [facility] Comment on above: GFR estimated refere nce range: According to KDOQI guidelines, <60 ml/min/1.73m2 is sufficient to diagnose a patient with chronic kidney disease. Otheron 09-13-2020 GFR/1.73 sq M.predicted MDRD (S/P/Bld) [Vol rate/Area] > 60 mL/Min [facility] Comment on above: GFR estimated refere nce range: According to KDOQI guidelines, <60 ml/min/1.73m2 is sufficient to diagnose a patient with chronic kidney disease. Pharmacy Creatinine Clearance (Chem N/A [facility] Prostate Specific Antigen Screen 0.480 ng/mL 0.000-4.00 0 [facility] Protein [Mass/volume] in Ser um or Plasmaon 09-13-2020 Protein [Mass/Vol] 6.3 g/dL 6.1-7.9 [facility] SARS-CoV-2 (COVID-19) IgG Ab [Presence] in Serum or Plasma by Immunoassayon 09-13-2020 SARS-CoV-2 (COVID-19) IgG Ab [Presence] in Serum or Plasma by Immunoassay Positive Negative [facility] Comment on above: Results suggest rece nt or prior infection with SARS-CoV-2.Correlation with epidemiologic risk factors and otherclinical and laboratory findings is recommended. Serologicresults should not be used as the sole basis to diagnose orexclude recent SARS-CoV-2 infection. False positive resultsinfrequently occur due to prior infection with other humanCoronaviruses.This assay was performed using the [employer](R)SARS-CoV-2 S1/S2 IgG assay.This assay detects antibodies against SARS-CoV-2 spikeprotein including the receptor binding domain (RBD).Performed at: [facility] [address] [id number] Director: Florencio Wu PhD, Phone: [phone] SARS-CoV-2 (COVID-19) IgG IA Ql Positive Negative [facility] Comment on above: Results suggest rece nt or prior infection with SARS-CoV-2.Correlation with epidemiologic risk factors and otherclinical and laboratory findings is recommended. Serologicresults should not be used as the sole basis to diagnose orexclude recent SARS-CoV-2 infection. False positive resultsinfrequently occur due to prior infection with other humanCoronaviruses.This assay was performed using the [employer](R)SARS-CoV-2 S1/S2 IgG assay.This assay detects antibodies against SARS-CoV-2 spikeprotein including the receptor binding domain (RBD).Performed at: [facility] [address] [id number] Director: Florencio Wu PhD, Phone: [phone] Serum or plasma alanine mclaughlin otransferase measurement without P-5'-P (enzymatic activion 09-13-2020 ALT No additional P-5'-P [Catalytic activity/Vol] 19 U/L [facility] Serum or plasma albumin/glob ulin mass ratioon 09-13-2020 Albumin/Globulin [Mass ratio] 2.2 {ratio} [facility] Serum or plasma alkaline fuentes sphatase measurement (enzymatic activity/volume)on 09-13-2020 ALP [Catalytic activity/Vol] 53 U/L 32 [facility] Serum or plasma aspartate am inotransferase measurement (enzymatic activity/volume)on 09-13-2020 AST [Catalytic activity/Vol] 22 U/L 10 [facility] Serum or plasma calcium paramjit urement (mass/volume)on 09-13-2020 Calcium [Mass/Vol] 9.1 mg/dL 8.2-10.2 [facility] Serum or plasma chloride robby surement (moles/volume)on 09-13-2020 Chloride [Moles/Vol] 105 mmol/L 95-114 [facility] Serum or plasma glucose paramjit urement (mass/volume)on [...] 09-13-2020 Cholesterol in HDL [Mass/Vol] 41 mg/dL [facility] Comment on above: HDL CHOL ATP-III CLA SSIFICATION Cardiovascular RiskHDL > or equal to 60 mg/dL LOWHDL < 40 mg/dL HIGH Serum or plasma potassium me asurement (moles/volume)on 09-13-2020 Potassium [Moles/Vol] 4.2 mmol/L 3.5-5.1 [facility] Serum or plasma sodium measu rement (moles/volume)on 09-13-2020 Sodium [Moles/Vol] 135 mmol/L 136-146 [facility] Serum or plasma thyroid stim ulating hormone (TSH) measurement by high sensitivity meton 09-13-2020 TSH Qn 1.66 u[iU]/mL 0.45-5.33 [facility] Serum or plasma total biliru bin measurement (mass/volume)on 09-13-2020 Bilirubin [Mass/Vol] 0.9 mg/dL 0.3-1.2 [facility] Serum or plasma total carbon dioxide measurement (moles/volume)on 09-13-2020 CO2 [Moles/Vol] 22.5 mmol/L 22.0-30.0 [facility] Serum or plasma total choles terol/high density lipoprotein (HDL) cholesterol mass gia 09-13-2020 Cholesterol.total/Chol esterol in HDL [Mass ratio] 5.3 {ratio} [facility] Serum or plasma urea nitroge n measurement (mass/volume)on 09-13-2020 Urea nitrogen [Mass/Vol] 12 mg/dL 9-23 [facility] TSH DL <= 0.005 mIU/L Qnon 0 09-13-2020 TSH Qn 1.66 m[IU]/L 0.45-5.33 [facility] Triglyceride [Mass/volume] i n Serum or Plasmaon 09-13-2020 Triglyceride [Mass/Vol] 144 mg/dL 35-149 [facility] Comment on above: TRIG ATP III CLASSIF [...] eye. Coleen Grajeda M.D. [facility]ek Dictated: 04/14/2019 #[id number] Typed 04/14/2019 #[id number] cc: Coleen Grajeda M.D. [facility] Comment on above: Result Comment: Elec tronically Signed By: Taras NORRIS, Coleen Mullins\.br\Date and Time Signed: 04/18/19 09:54 EDT Operative Reporton 11-01-201 9 Operative Report Date of Surgery: 04/14/2019 [...] and inferior fornices of the eye. A meebeean manometer was set on the eye at [...] Room in good condition. Coleen Grajeda M.D. [facility] Dictated: 04/14/2019 #[id number] Typed: 04/15/2019 #[id number] cc: Coleen Grajeda M.D. [facility] Comment on above: Result Comment: Elec tronically Signed By: Coleen Grajeda MD\.br\Date and Time Signed: 04/18/19 09:54 EDT Coding Summary.on 04-15-2019 Coding Summary. 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 Name: JOVANI MELENDEZ/Sex: 1960 Male Med Rec #: [id number] Physician: Coleen Grajeda MD Financial #: [id number] Pt. 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 Yes Warm, [place], Dry Last Modified By: Johnathon Karimi RN [...] RN Patient Status Stable Skin. 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 FT-BAUSCH [employer] LOMB Catalog ?# [id number] 21.0[F] Expiration Date 10/16/23 Unique Device [id number] Identifier (BERNARD) Usage Data FT Implant Site [...] Alves CST 04/15/19 14:44 Normal [facility] Inpatient Patient Summaryon 04-14-2019 Inpatient Patient Summary [facility] Clinical Discharge Instructions PERSON INFORMATION Name: JOVANI MELENDEZ PHYSICIANS Admitting Physician: Coleen Grajeda MD Attending Physician: Coleen Grajeda MD PCP: JILLIAN BARONE DO Discharge Diagnosis: Cataract Comment: PATIENT EDUCATION INFORMATION Instructions: Medication Leaflets: Follow up: With: Address: When: Coleen Grajeda [address] [place] [address] [facility] (1) Comments: Call physician if symptoms worsen Keep scheduled appointment MEDICATION LIST Comment: Normal [facility] Main OR PACU II Recordon Main OR PACU II Record PACU Phase II Doc ument Type FT Summary Primary Physician: Coleen Grajeda MD Finalized Date/Time: 04/14/19 17:54:42 Pt. Name: JOVANI MELENDEZO.B./Sex: 1960 Male Med Rec #: [id number] Physician: Coleen Grajeda MD Financial #: [id number] Pt. Type: A Room/Bed: [facility] Admit/Disch: 04/14/19 12:59:23 - Institution: Case Times [...] Rush RN 04/14/19 17:54 Normal [facility] Main OR Preoperative Recordo n 04-14-2019 Main OR Preoperative Record PreOp Document Type FT Summary Primary Physician: Coleen Grajeda MD Finalized Date/Time: 04/14/19 15:14:03 Pt. Name: JOVANI MELENDEZ/Sex: 1960 Male Med Rec #: [id number] Physician: Coleen Grajeda MD Financial #: [id number] Pt. Type: A Room/Bed: [facility]07/19 Admit/Disch: 04/14/19 12:59:23 - Institution: Case Times [...] Karimi RN 04/14/19 15:14 Normal [facility] Patient Education - Texton 1 Patient Education - Text Normal [facility] Vital Signs Date Time Vital Sign Value Performing Clinician Facility 07-03-2024 09:54-0500 Body height 172.72 cm [employer] DO Work Phone: [facility] 07-03-2024 09:54-0500 Body mass index (BMI) [Ratio] 28.4 kg/m2 [employer] DO Work Phone: [facility] 07-03-2024 09:54-0500 Body weight 84.82 kg [employer] DO Work Phone: [facility] 07-03-2024 09:54-0500 Diastolic blood pressure 70 mm[Hg] Griselda Kuns DO Work Phone: [facility] 07-03-2024 09:54-0500 Heart rate 81 /min [employer] DO Work Phone: [facility] 07-03-2024 09:54-0500 Respiratory rate 18 /min [employer] DO Work Phone: [facility] 07-03-2024 09:54-0500 SaO2% (BldA) [Mass fraction] 98 % [employer] DO Work Phone: [facility] 07-03-2024 09:54-0500 Systolic blood pressure 120 mm[Hg] Griselda Krause DO Work Phone: [facility] 07-02-2024 14:18-0500 Body mass index (BMI) [Ratio] 28.28 kg/m2 Elvi Cadena MD Work Phone: [facility] 07-02-2024 14:18-0500 Body weight 84.37 kg Elvi Cadena MD Work Phone: [facility] 07-02-2024 14:18-0500 Diastolic blood pressure 77 mm[Hg] Elvi Cadena MD Work Phone: [facility] 07-02-2024 14:18-0500 Heart rate 86 /min Elvi Cadena MD Work Phone: [facility] 07-02-2024 14:18-0500 Systolic blood pressure 143 mm[Hg] Elvi Cadena MD Work Phone: [facility] 06-30-2024 08:56-0500 Body height 172.7 cm Camille Harris MD Work Phone: 1(659)[phone] [address] 06-30-2024 08:56-0500 Body mass index (BMI) [Ratio] 27.37 kg/m2 Camille Harris MD Work Phone: 2(196)764-724240 [place] [address] 06-30-2024 08:56-0500 Body weight 81.65 kg Camille Harris MD Work Phone: 7(544)647-591266 [place] [address] 06-30-2024 08:56-0500 Diastolic blood pressure 70 mm[Hg] Camille Harris MD Work Phone: 6(989)190-853966 [place] [address] 06-30-2024 08:56-0500 Heart rate 75 /min Camille Harris MD Work Phone: 2(859)112-414666 [place] [address] 06-30-2024 08:56-0500 Systolic blood pressure 124 mm[Hg] Camille Harris MD Work Phone: [facility] 05-21-2024 14:04-0500 Body height 172.7 cm Elvi Cadena MD Work Phone: [facility] 05-21-2024 14:04-0500 Body mass index (BMI) [Ratio] 26.46 kg/m2 Elvi Cadena MD Work Phone: [facility] 05-21-2024 14:04-0500 Body weight 78.93 kg Elvi Cadena MD Work Phone: [facility] 05-21-2024 14:04-0500 Diastolic blood pressure 82 mm[Hg] Elvi Cadena MD Work Phone: [facility] 05-21-2024 14:04-0500 Systolic blood pressure 120 mm[Hg] Elvi Cadena MD Work Phone: [facility] 04-28-2024 09:48-0500 Body height 172.72 cm [facility] 04-28-2024 09:48-0500 Body mass index (BMI) [Ratio] 27 kg/m2 [facility] 04-28-2024 09:48-0500 Body weight 80.73 kg [facility] 04-28-2024 09:48-0500 Diastolic blood pressure 76 mm[Hg] [facility] 04-28-2024 09:48-0500 Heart rate 61 /min [facility] 04-28-2024 09:48-0500 Respiratory rate 18 /min [facility] 04-28-2024 09:48-0500 SaO2% (BldA) [Mass fraction] 96 % [facility] 04-28-2024 09:48-0500 Systolic blood pressure 130 mm[Hg] [facility] 04-10-2024 12:11-0400 Body temperature 98.1 [degF] Camille Harris MD Work Phone: [facility] 04-10-2024 12:11-0400 Diastolic blood pressure 58 mm[Hg] Camille Harris MD Work Phone: [facility] 04-10-2024 12:11-0400 Heart rate 82 /min Camille Harris MD Work Phone: [facility] 04-10-2024 12:11-0400 Respiratory rate 17 /min Camille Harris MD Work Phone: [facility] 04-10-2024 12:11-0400 Systolic blood pressure 118 mm[Hg] Camille Harris MD Work Phone: [facility] 04-10-2024 09:20-0400 SaO2% (BldA) [Mass fraction] 93 % Camille Harris MD Work Phone: [facility] 04-09-2024 15:07-0400 Body temperature 37 Camille Harris MD Work Phone: [facility] 04-09-2024 15:07-0400 SaO2% (BldA) [Mass fraction] 100 % Camille Harris MD Work Phone: [facility] 04-09-2024 14:47-0400 Body temperature 37.0 degrees Celsius [facility] Comment on above: Performed By: #### [id number] ####TITUS Mercado ([id number])[facility] ([facility])[address] [place] [address] 04-09-2024 14:47-0400 SaO2% (BldA) [Mass fraction] 100 % [facility] Comment on above: Performed By: #### [id number] ####TITUS Mercado ([id number])[facility] ([facility])[address] [place] [address] 04-09-2024 12:11-0400 Body height 172.7 cm Camille Harris MD Work Phone: [facility] 04-09-2024 12:11-0400 Body mass index (BMI) [Ratio] 27.12 kg/m2 Camille Harris MD Work Phone: [facility] 04-09-2024 12:110400 Body weight 80.9 kg Camille Harris MD Work Phone: [facility] 04-01-2024 10:47-0400 Body height 172.72 cm [facility] 04-01-2024 10:47-0400 Body mass index (BMI) [Ratio] 27.2 kg/m2 [facility] 04-01-2024 10:47-0400 Body weight 81.19 kg [facility] 04-01-2024 10:47-0400 Diastolic blood pressure 70 mm[Hg] [facility] 04-01-2024 10:47-0400 Heart rate 50 /min [facility] 04-01-2024 10:47-0400 Respiratory rate 16 /min [facility] 04-01-2024 10:47-0400 SaO2% (BldA) [Mass fraction] 99 % [facility] 04-01-2024 10:47-0400 Systolic blood pressure 120 mm[Hg] [facility] 01-31-2024 10:24-0400 Body height 172.72 cm [facility] 01-31-2024 10:24-0400 Body mass index (BMI) [Ratio] 27.3 kg/m2 [facility] 01-31-2024 10:24-0400 Body weight 81.64 kg [facility] 01-31-2024 10:24-0400 Diastolic blood pressure 70 mm[Hg] [facility] 01-31-2024 10:24-0400 Heart rate 75 /min [facility] 01-31-2024 10:24-0400 Respiratory rate 18 /min [facility] 01-31-2024 10:24-0400 SaO2% (BldA) [Mass fraction] 98 % [facility] 01-31-2024 10:24-0400 Systolic blood pressure 122 mm[Hg] [facility] 01-03-2024 13:36-0400 Body height 172.7 cm Camille Harris MD Work Phone: [facility] 01-03-2024 13:36-0400 Body mass index (BMI) [Ratio] 27.43 kg/m2 Camille Harris MD Work Phone: [facility] 01-03-2024 13:36-0400 Body weight 81.83 kg Camille Harris MD Work Phone: [facility] 01-03-2024 13:36-0400 Diastolic blood pressure 80 mm[Hg] Camille Harris MD Work Phone: [facility] 01-03-2024 13:36-0400 Heart rate 80 /min Camille Harris MD Work Phone: [facility] 01-03-2024 13:36-0400 Systolic blood pressure 160 mm[Hg] Camille Harris MD Work Phone: [facility] 12-13-2023 10:00-0400 Body mass index (BMI) [Ratio] 27.1 kg/m2 Ignacia Jack MD Work Phone: [facility] 12-13-2023 10:00-0400 Body temperature 97.5 [degF] Ignacia Jack MD Work Phone: [facility] 12-13-2023 10:00-0400 Body weight 80.83 kg Ignacia Jack MD Work Phone: [facility] 12-13-2023 10:00-0400 Diastolic blood pressure 59 mm[Hg] Ignacia Jack MD Work Phone: [facility] 12-13-2023 10:00-0400 Heart rate 92 /min Ignacia Jack MD Work Phone: [facility] 12-13-2023 10:00-0400 Respiratory rate 17 /min Ignacia Jack MD Work Phone: [facility] 12-13-2023 10:00-0400 SaO2% (BldA) [Mass fraction] 96 % Ignacia Jack MD Work Phone: [facility] 12-13-2023 10:00-0400 Systolic blood pressure 133 mm[Hg] Ignacia Jack MD Work Phone: [facility] 12-12-2023 13:08-0400 Body height 172.7 cm Solomon Milks PA-C Work Phone: [facility] 12-12-2023 13:08-0400 Body mass index (BMI) [Ratio] 26.91 kg/m2 Solomon Milks PA-C Work Phone: [facility] 12-12-2023 13:08-0400 Body weight 80.29 kg Solomon Milks PA-C Work Phone: [facility] 12-12-2023 13:08-0400 Diastolic blood pressure 70 mm[Hg] Solomon Milks PA-C Work Phone: [facility] 12-12-2023 13:08-0400 Heart rate 91 /min Solomon Milks PA-C Work Phone: [facility] 12-12-2023 13:08-0400 Systolic blood pressure 116 mm[Hg] Solomon Milks PA-C Work Phone: [facility] 12-03-2023 10:51-0400 Body height 172.72 cm DO Griselda Kuns Work Phone: [facility] 12-03-2023 10:51-0400 Body mass index (BMI) [Ratio] 26.1 kg/m2 DO Griselda Kuns Work Phone: [facility] 12-03-2023 10:51-0400 Body weight 78.01 kg DO Griselda Kuns Work Phone: [facility] 12-03-2023 10:51-0400 Diastolic blood pressure 82 mm[Hg] DO Griselda Kuns Work Phone: [facility] 12-03-2023 10:51-0400 Heart rate 97 /min DO Griselda Kuns Work Phone: [facility] 12-03-2023 10:51-0400 Respiratory rate 18 /min DO Griselda Kuns Work Phone: [facility] 12-03-2023 10:51-0400 SaO2% (BldA) [Mass fraction] 96 % DO Griselda Kuns Work Phone: [facility] 12-03-2023 10:51-0400 Systolic blood pressure 110 mm[Hg] DO Griselda Kuns Work Phone: [facility] 11-02-2023 09:49-0400 Body height 170.6 cm Memo Cole MD Work Phone: [facility] 11-02-2023 09:49-0400 Body mass index (BMI) [Ratio] 27.38 kg/m2 Memo Cole MD Work Phone: [facility] 11-02-2023 09:49-0400 Body temperature 97.7 [degF] Memo Cole MD Work Phone: [facility] 11-02-2023 09:49-0400 Body weight 79.7 kg Memo Cole MD Work Phone: [facility] 11-02-2023 09:49-0400 Diastolic blood pressure 76 mm[Hg] Memo Cole MD Work Phone: [facility] 11-02-2023 09:49-0400 Heart rate 72 /min Memo Cole MD Work Phone: [facility] 11-02-2023 09:49-0400 Respiratory rate 16 /min Memo Cole MD Work Phone: [facility] 11-02-2023 09:49-0400 SaO2% (BldA) [Mass fraction] 99 % Memo Cole MD Work Phone: [facility] 11-02-2023 09:49-0400 Systolic blood pressure 130 mm[Hg] Memo Cole MD Work Phone: [facility] 10-29-2023 10:32-0400 Body height 172.72 cm DO Griselda Kuns Work Phone: [facility] 10-29-2023 10:32-0400 Body mass index (BMI) [Ratio] 26.6 kg/m2 DO Griselda Kuns Work Phone: [facility] 10-29-2023 10:32-0400 Body weight 79.37 kg DO Griselda Kuns Work Phone: [facility] 10-29-2023 10:32-0400 Diastolic blood pressure 82 mm[Hg] DO Griselda Kuns Work Phone: [facility] 10-29-2023 10:32-0400 Heart rate 71 /min DO Griselda Kuns Work Phone: [facility] 10-29-2023 10:32-0400 Respiratory rate 16 /min DO Griselda Kuns Work Phone: [facility] 10-29-2023 10:32-0400 SaO2% (BldA) [Mass fraction] 98 % DO Griselda Kuns Work Phone: [facility] 10-29-2023 10:32-0400 Systolic blood pressure 128 mm[Hg] DO Griselda Kuns Work Phone: [facility] 10-18-2023 09:02-0400 Diastolic blood pressure 68 mm[Hg] DO Griselda Kuns Work Phone: [facility] 10-18-2023 09:02-0400 Systolic blood pressure 132 mm[Hg] DO Griselda Kuns Work Phone: [facility] 10-18-2023 08:58-0400 Body height 172.72 cm DO Griselda Kuns Work Phone: [facility] 10-18-2023 08:58-0400 Body mass index (BMI) [Ratio] 26.6 kg/m2 DO Griselda Kuns Work Phone: [facility] 10-18-2023 08:58-0400 Body weight 79.37 kg DO Griselda Kuns Work Phone: [facility] 10-18-2023 08:58-0400 Heart rate 57 /min DO Griselda Kuns Work Phone: [facility] 10-18-2023 08:58-0400 Respiratory rate 18 /min DO Griselda Kuns Work Phone: [facility] 10-18-2023 08:58-0400 SaO2% (BldA) [Mass fraction] 98 % DO Griselda Kuns Work Phone: [facility] 10-05-2023 09:37-0400 Body height 172.2 cm Ignacia Jack MD Work Phone: [facility] 10-05-2023 09:37-0400 Body mass index (BMI) [Ratio] 26.25 kg/m2 Ignacia Jack MD Work Phone: [facility] 10-05-2023 09:37-0400 Body temperature 97.3 [degF] Ignacia Jack MD Work Phone: [facility] 10-05-2023 09:37-0400 Body weight 77.84 kg Ignacia Jack MD Work Phone: [facility] 10-05-2023 09:37-0400 Diastolic blood pressure 68 mm[Hg] Ignacia Jack MD Work Phone: [facility] 10-05-2023 09:37-0400 Heart rate 81 /min Ignacia Jack MD Work Phone: [facility] 10-05-2023 09:37-0400 Respiratory rate 16 /min Ignacia Jack MD Work Phone: [facility] 10-05-2023 09:37-0400 SaO2% (BldA) [Mass fraction] 99 % Ignacia Jack MD Work Phone: [facility] 10-05-2023 09:37-0400 Systolic blood pressure 116 mm[Hg] Ignacia Jack MD Work Phone: [facility] 09-05-2023 13:44-0400 Diastolic blood pressure 99 mm[Hg] DO Griselda Kuns Work Phone: [facility] 09-05-2023 13:44-0400 Systolic blood pressure 160 mm[Hg] DO Griselda Kuns Work Phone: [facility] 09-05-2023 13:41-0400 Body height 172.72 cm DO Griselda Kuns Work Phone: [facility] 09-05-2023 13:41-0400 Body mass index (BMI) [Ratio] 27.8 kg/m2 DO Griselda Kuns Work Phone: [facility] 09-05-2023 13:41-0400 Body weight 83 kg DO Griselda Kuns Work Phone: [facility] 09-05-2023 13:41-0400 Heart rate 66 /min DO Griselda Kuns Work Phone: [facility] 09-05-2023 13:41-0400 Respiratory rate 18 /min DO Griselda Kuns Work Phone: [facility] 09-05-2023 13:41-0400 SaO2% (BldA) [Mass fraction] 99 % DO Griselda Kuns Work Phone: [facility] 09-05-2023 11:58-0400 Body height 172.72 cm DO Griselda Kuns Work Phone: [facility] [facility] 09-[facility]-2023 11:58-0400 Body mass index (BMI) [Ratio] 27.3 kg/m2 DO Griselda Kuns Work Phone: [facility] 09-05-2023 11:58-0400 Body temperature 97.8 [degF] DO Griselda Kuns Work Phone: [facility] 09-05-2023 11:58-0400 Body weight 81.64 kg DO Grisleda Kuns Work Phone: [facility] 09-05-2023 11:58-0400 Diastolic blood pressure 92 mm[Hg] DO Griselda Kuns Work Phone: [facility] 09-05-2023 11:58-0400 Heart rate 71 /min DO Griselda Kuns Work Phone: [facility] 09-05-2023 11:58-0400 SaO2% (BldA) [Mass fraction] 96 % DO Griselda Kuns Work Phone: [facility] 09-05-2023 11:58-0400 Systolic blood pressure 160 mm[Hg] DO Griselda Kuns Work Phone: [facility] 08-15-2023 15:41-0500 Body height 172.72 cm DO Griselda Kuns Work Phone: [facility] 08-15-2023 15:41-0500 Body mass index (BMI) [Ratio] 28.1 kg/m2 DO Griselda Kuns Work Phone: [facility] 08-15-2023 15:41-0500 Body weight 84.08 kg DO Griselda Kuns Work Phone: [facility] 08-15-2023 15:41-0500 Diastolic blood pressure 72 mm[Hg] DO Griselda Kuns Work Phone: [facility] 08-15-2023 15:41-0500 Heart rate 62 /min DO Griselda Kuns Work Phone: [facility] 08-15-2023 15:41-0500 Respiratory rate 18 /min DO Griselda Kuns Work Phone: [facility] 08-15-2023 15:41-0500 SaO2% (BldA) [Mass fraction] 99 % DO Griselda Kuns Work Phone: [facility] 08-15-2023 15:41-0500 Systolic blood pressure 128 mm[Hg] DO Griselda Kuns Work Phone: [facility] 08-02-2023 13:11-0500 Body height 172.72 cm DO Griselda Kuns Work Phone: [facility] 08-02-2023 13:11-0500 Body mass index (BMI) [Ratio] 27.9 kg/m2 DO Griselda Kuns Work Phone: [facility] 08-02-2023 13:11-0500 Body weight 83.46 kg DO Griselda Kuns Work Phone: [facility] 08-02-2023 13:11-0500 Diastolic blood pressure 70 mm[Hg] DO Griselda Kuns Work Phone: [facility] 08-02-2023 13:11-0500 Heart rate 68 /min DO Griselda Kuns Work Phone: [facility] 08-02-2023 13:11-0500 Respiratory rate 16 /min DO Griselda Kuns Work Phone: [facility] 08-02-2023 13:11-0500 SaO2% (BldA) [Mass fraction] 97 % DO Griselda Kuns Work Phone: [facility] 08-02-2023 13:11-0500 Systolic blood pressure 130 mm[Hg] DO Griselda Kuns Work Phone: [facility] 07-02-2023 09:30-0500 Body height 172.72 cm Grsielda Kuns Other [facility] 07-02-2023 09:30-0500 Body mass index (BMI) [Ratio] 28.28 kg/m2 Griselda Kuns Other [employer] Other 07-02-2023 09:30-0500 Body weight 84.37 kg Griselda Kuns Other [employer] Other 07-02-2023 09:30-0500 Body weight 84.36 kg DO Griselda Kuns Work Phone: [facility] 07-02-2023 09:30-0500 Diastolic blood pressure 92 mm[Hg] Griselda Kuns Other [facility] 07-02-2023 09:30-0500 Respiratory rate 16 /min Griselda Kuns Other [facility] [employer] Other 07-02-2023 09:30-0500 SaO2% (BldA) [Mass fraction] 97 % Grieslda Kuns Other [facility] [employer] Other 07-02-2023 09:30-0500 Systolic blood pressure 160 mm[Hg] Griselda Kuns Other [facility] 05-31-2023 13:45-0500 Body height 172.72 cm Griselda Kuns Other [facility] 05-31-2023 13:45-0500 Body mass index (BMI) [Ratio] 27.37 kg/m2 Griselda Kuns Other [facility] [employer] Other 05-31-2023 13:45-0500 Body weight 81.65 kg Griselda Kuns Other [employer] [facility] [employer] Other 05-31-2023 13:45-0500 Body weight 81.64 kg DO Griselda Kuns Work Phone: [facility] 05-31-2023 13:45-0500 Diastolic blood pressure 80 mm[Hg] Griseldakeith Mendezs Other [facility] 05-31-2023 13:45-0500 Respiratory rate 18 /min Griseldakeith Mendezs Other [employer] Other 05-31-2023 13:45-0500 SaO2% (BldA) [Mass fraction] 98 % Griseldakeith Mendezs Other [facility] [employer] Other 05-31-2023 13:45-0500 Systolic blood pressure 120 mm[Hg] Griselda Tomekas Other [facility] 05-30-2023 11:15-0500 Body height 172.72 cm Ruddy Harvey Other [facility] 05-30-2023 11:15-0500 Body mass index (BMI) [Ratio] 27.52 kg/m2 Ruddy Harvey Other [facility] [employer] Other 05-30-2023 11:15-0500 Body temperature 97.8 [degF] Ruddy Harvey Other [facility] [employer] Other 05-30-2023 11:15-0500 Body weight 82.1 kg Ruddy Harvey Other [facility] 05-30-2023 11:15-0500 SaO2% (BldA) [Mass fraction] 98 % Ruddy Harvey Other [employer] Other 05-15-2023 13:20-0500 Body height 172.72 cm Lilliam Cason Other [facility] 05-15-2023 13:20-0500 Body mass index (BMI) [Ratio] 27.52 kg/m2 Lilliam Cason Other [employer] Other 05-15-2023 13:20-0500 Body weight 82.1 kg Lilliam Cason Other [facility] 05-15-2023 13:20-0500 Diastolic blood pressure 84 mm[Hg] Lilliam Cason Other [facility] 05-15-2023 13:20-0500 Respiratory rate 18 /min Lilliam Cason Other [employer] Other 05-15-2023 13:20-0500 SaO2% (BldA) [Mass fraction] 98 % Lilliam Cason Other [facility] [employer] Other 05-15-2023 13:20-0500 Systolic blood pressure 142 mm[Hg] Lilliam Cason Other [facility] 05-07-2023 13:16-0500 Diastolic blood pressure 78 mm[Hg] DO Griselda Kuns Work Phone: [facility] 05-07-2023 13:16-0500 Heart rate 75 /min DO Griselda Kuns Work Phone: [facility] 05-07-2023 13:16-0500 Respiratory rate 16 /min DO Griselda Kuns Work Phone: [facility] 05-07-2023 13:16-0500 SaO2% (BldA) [Mass fraction] 96 % DO Griselda Kuns Work Phone: [facility] 05-07-2023 13:16-0500 Systolic blood pressure 135 mm[Hg] DO Griselda Kuns Work Phone: [facility] 05-07-2023 10:30-0500 Inhaled oxygen flow rate 3 L/min DO Griselda Kuns Work Phone: [facility] 05-07-2023 08:29-0500 Body height 172.72 cm DO Griselda Kuns Work Phone: [facility] 05-07-2023 08:29-0500 Body weight 79.37 kg DO [employer] Work Phone: [facility] 05-03-2023 09:15-0500 Body height 172.72 cm Ruddy Harvey Other [employer] Other 05-03-2023 09:15-0500 Body mass index (BMI) [Ratio] 27.06 kg/m2 Ruddy Harvey Other [employer] Other 05-03-2023 09:15-0500 Body temperature 97.8 [degF] Ruddy Harvey Other [employer] Other 05-03-2023 09:15-0500 Body weight 80.74 kg Ruddy Harvey Other [employer] Other 05-03-2023 09:15-0500 Diastolic blood pressure 78 mm[Hg] Ruddy Harvey Other [employer] Other 05-03-2023 09:15-0500 SaO2% (BldA) [Mass fraction] 97 % Ruddy Harvey Other [employer] Other 05-03-2023 09:15-0500 Systolic blood pressure 146 mm[Hg] Ruddy Harvey Other [employer] Other 05-01-2023 10:30-0500 Body height 172.72 cm [employer] Other [employer] Other 05-01-2023 10:30-0500 Body mass index (BMI) [Ratio] 27.06 kg/m2 Griselda Kuns Other [employer] Other 05-01-2023 10:30-0500 Body weight 80.74 kg Griselda Tomekas Other [employer] Other 05-01-2023 10:30-0500 Diastolic blood pressure 80 mm[Hg] Griselda Kuns Other [employer] Other 05-01-2023 10:30-0500 Respiratory rate 18 /min Griseldakeith Mendezs Other [employer] Other 05-01-2023 10:30-0500 SaO2% (BldA) [Mass fraction] 96 % Griseldakeith Mendezs Other [employer] Other 05-01-2023 10:30-0500 Systolic blood pressure 144 mm[Hg] Griselda Kuns Other [employer] Other 04-11-2023 10:40-0400 Body height 172.72 cm Lilliam Kamla Other [employer] Other 04-11-2023 10:40-0400 Body mass index (BMI) [Ratio] 26.67 kg/m2 Lilliam Kamla Other [employer] Other 04-11-2023 10:40-0400 Body weight 79.56 kg Lilliam Kamla Other [employer] Other 04-11-2023 10:40-0400 Diastolic blood pressure 80 mm[Hg] Lilliam Kamla Other [employer] Other 04-11-2023 10:40-0400 SaO2% (BldA) [Mass fraction] 96 % Lilliam Cason Other [facility] [employer] Other 04-11-2023 10:40-0400 Systolic blood pressure 148 mm[Hg] Lilliam Cason Other [facility] [employer] Other 03-21-2023 02:42-0400 Diastolic blood pressure 98 mm[Hg] DO Griselda Kuns Work Phone: [facility] 03-21-2023 02:42-0400 Heart rate 72 /min DO Griselda [employer] Work Phone: [facility] 03-21-2023 02:42-0400 Respiratory rate 16 /min DO Griselda [employer] Work Phone: [facility] 03-21-2023 02:42-0400 SaO2% (BldA) [Mass fraction] 97 % DO Griselda Kuns Work Phone: [facility] 03-21-2023 02:42-0400 Systolic blood pressure 170 mm[Hg] DO Griselda Kuns Work Phone: [facility] 03-21-2023 00:12-0400 Body height 172.72 cm DO Griselda [employer] Work Phone: [facility] 03-21-2023 00:12-0400 Body temperature 98 [degF] DO Griselda Kuns Work Phone: [facility] 03-21-2023 00:12-0400 Body weight 79.37 kg DO Griselda [employer] Work Phone: [facility] 03-15-2023 10:30-0400 Body height 172.72 cm [employer] Other [facility] [employer] Other 03-15-2023 10:30-0400 Body mass index (BMI) [Ratio] 26.76 kg/m2 Griselda [employer] Other [employer] Other 03-15-2023 10:30-0400 Body weight 79.83 kg Griselda Kuns Other [employer] Other 03-15-2023 10:30-0400 Diastolic blood pressure 86 mm[Hg] Griselda Kuns Other [employer] Other 03-15-2023 10:30-0400 Respiratory rate 16 /min Griselda Kuns Other [employer] Other 03-15-2023 10:30-0400 SaO2% (BldA) [Mass fraction] 97 % Griselda Kuns Other [employer] Other 03-15-2023 10:30-0400 Systolic blood pressure 174 mm[Hg] Griselda Kuns Other [employer] Other 03-08-2023 10:00-0400 Body height 172.72 cm Griselda Kuns Other [employer] Other 03-08-2023 10:00-0400 Body mass index (BMI) [Ratio] 27.18 kg/m2 Griselda Kuns Other [employer] Other 03-08-2023 10:00-0400 Body weight 81.1 kg Griselda Kuns Other [employer] Other 03-08-2023 10:00-0400 Diastolic blood pressure 82 mm[Hg] Griselda Kuns Other [employer] Other 03-08-2023 10:00-0400 Respiratory rate 16 /min Griselda Kuns Other [facility] [employer] Other 03-08-2023 10:00-0400 SaO2% (BldA) [Mass fraction] 96 % Griselda Kuns Other [facility] [employer] Other 03-08-2023 10:00-0400 Systolic blood pressure 118 mm[Hg] Griselda Kuns Other [facility] [employer] Other 02-26-2023 14:13-0400 Body height 172.72 cm DO Griselda Kuns Work Phone: [facility] 02-26-2023 14:13-0400 Body temperature 98 [degF] DO Griselda Kuns Work Phone: [facility] 02-26-2023 14:13-0400 Body weight 78.6 kg DO Griselda Kuns Work Phone: [facility] 02-26-2023 14:13-0400 Diastolic blood pressure 77 mm[Hg] DO Griselda Kuns Work Phone: [facility] 02-26-2023 14:13-0400 Heart rate 56 /min DO Griselda Kuns Work Phone: [facility] 02-26-2023 14:13-0400 Respiratory rate 18 /min DO Griselda Kuns Work Phone: [facility] 02-26-2023 14:13-0400 SaO2% (BldA) [Mass fraction] 96 % DO Griselda Kuns Work Phone: [facility] 02-26-2023 14:13-0400 Systolic blood pressure 142 mm[Hg] DO Griselda Kuns Work Phone: [facility] 12-05-2022 10:15-0400 Body height 172.72 cm Griselda Kuns Other [employer] Other 12-05-2022 10:15-0400 Body mass index (BMI) [Ratio] 25.85 kg/m2 Griseldakeith Mendezs Other [employer] Other 12-05-2022 10:15-0400 Body weight 77.11 kg Griseldakeith Mendezs Other [employer] Other 12-05-2022 10:15-0400 Diastolic blood pressure 80 mm[Hg] Griselda Tomekas Other [employer] Other 12-05-2022 10:15-0400 Respiratory rate 16 /min Griseldakeith Mendezs Other [facility] Other 12-05-2022 10:15-0400 SaO2% (BldA) [Mass fraction] 96 % Griseldakeith Krause Other [employer] Other 12-05-2022 10:15-0400 Systolic blood pressure 140 mm[Hg] Griselda Tomekas Other [employer] Other 09-13-2022 10:57-0400 Body height 170.6 cm Kelly SAAVEDRA-C Work Phone: [facility] 09-13-2022 10:57-0400 Body temperature 97.39 [degF] Kelly Perez PA-C Work Phone: [facility] 09-13-2022 10:57-0400 Body weight 77.34 kg Kelly Perez PA-C Work Phone: [facility] 09-13-2022 10:57-0400 Diastolic blood pressure 61 mm[Hg] Kelly Perez PA-C Work Phone: [facility] 09-13-2022 10:57-0400 Heart rate 70 /min Kelly Perez PA-C Work Phone: [facility] 09-13-2022 10:57-0400 Respiratory rate 18 /min Kelly Perez PA-C Work Phone: [facility] 09-13-2022 10:57-0400 SaO2% (BldA) [Mass fraction] 100 % Kelly Perez PA-C Work Phone: [facility] 09-13-2022 10:57-0400 Systolic blood pressure 133 mm[Hg] Kelly Perez PA-C Work Phone: [facility] 08-31-2022 11:15-0400 Body height 172.72 cm Griseldakeith Krause Other [employer] Other 08-31-2022 11:15-0400 Body mass index (BMI) [Ratio] 26.79 kg/m2 Griseldakeith Krause Other [facility] Other 08-31-2022 11:15-0400 Body weight 79.92 kg Griselda [employer] Other [employer] Other 08-31-2022 11:15-0400 Diastolic blood pressure 78 mm[Hg] Griseldakeith Mendezs Other [employer] Other 08-31-2022 11:15-0400 Respiratory rate 16 /min Griselda Kuns Other [employer] Other 08-31-2022 11:15-0400 SaO2% (BldA) [Mass fraction] 98 % Griselda [employer] Other [employer] Other 08-31-2022 11:15-0400 Systolic blood pressure 138 mm[Hg] Griselda Kuns Other [employer] Other 08-01-2022 10:30-0500 Body height 172.72 cm Griselda Kuns Other [employer] Other 08-01-2022 10:30-0500 Body mass index (BMI) [Ratio] 27.27 kg/m2 Griselda Kuns Other [employer] Other 08-01-2022 10:30-0500 Body weight 81.38 kg Griselda Kuns Other [employer] Other 08-01-2022 10:30-0500 Diastolic blood pressure 82 mm[Hg] Griselda Kuns Other [employer] Other 08-01-2022 10:30-0500 Respiratory rate 16 /min Griselda Kuns Other [employer] Other 08-01-2022 10:30-0500 SaO2% (BldA) [Mass fraction] 99 % Griselda Kuns Other [employer] Other 08-01-2022 10:30-0500 Systolic blood pressure 146 mm[Hg] Griselda Kuns Other [employer] Other 07-17-2022 09:45-0500 Diastolic blood pressure 98 mm[Hg] DO Griselda Kuns Work Phone: [facility] 07-17-2022 09:45-0500 Heart rate 69 /min DO Griselda Kuns Work Phone: [facility] 07-17-2022 09:45-0500 Respiratory rate 16 /min DO Griselda Kuns Work Phone: [facility] 07-17-2022 09:45-0500 SaO2% (BldA) [Mass fraction] 99 % DO Griselda Kuns Work Phone: [facility] 07-17-2022 09:45-0500 Systolic blood pressure 144 mm[Hg] DO Griselda Kuns Work Phone: [facility] 07-17-2022 07:58-0500 Body height 172.72 cm DO Griselda Kuns Work Phone: [facility] 07-17-2022 07:58-0500 Body weight 79.37 kg DO Griselda Kuns Work Phone: [facility] 06-28-2022 10:20-0500 Body height 172.72 cm Trish Blades Other [employer] Other 06-28-2022 10:20-0500 Body mass index (BMI) [Ratio] 26.67 kg/m2 Trish Blades Other [employer] Other 06-28-2022 10:20-0500 Body weight 79.56 kg Trish Blades Other [facility] Other 06-28-2022 10:20-0500 Diastolic blood pressure 80 mm[Hg] Trish Blades Other [facility] Other 06-28-2022 10:20-0500 Systolic blood pressure 140 mm[Hg] Trish Blades Other [facility] Other 05-26-2022 13:30-0500 Body height 172.72 cm Griselda [employer] Other [employer] Other 05-26-2022 13:30-0500 Body mass index (BMI) [Ratio] 26.7 kg/m2 Griselda Kuns Other [employer] Other 05-26-2022 13:30-0500 Body weight 79.65 kg Griselda Kuns Other [employer] Other 05-26-2022 13:30-0500 Diastolic blood pressure 82 mm[Hg] Griselda Kuns Other [employer] Other 05-26-2022 13:30-0500 Respiratory rate 18 /min Griselda Kuns Other [employer] Other 05-26-2022 13:30-0500 SaO2% (BldA) [Mass fraction] 98 % Griselda Kuns Other [facility] Other 05-26-2022 13:30-0500 Systolic blood pressure 144 mm[Hg] Griselda Kuns Other [employer] Other 04-17-2022 00:30-0400 Diastolic blood pressure 64 mm[Hg] DO Griselda Kuns Work Phone: [facility] 04-17-2022 00:30-0400 Heart rate 78 /min DO Griselda Kuns Work Phone: [facility] 04-17-2022 00:30-0400 Respiratory rate 16 /min DO Griselda Kuns Work Phone: [facility] 04-17-2022 00:30-0400 SaO2% (BldA) [Mass fraction] 97 % DO Griselda Kuns Work Phone: [facility] 04-17-2022 00:30-0400 Systolic blood pressure 135 mm[Hg] DO Griselda Kuns Work Phone: [facility] 04-16-2022 19:45-0400 Body height 172.72 cm DO Griselda Kuns Work Phone: [facility] 04-16-2022 19:45-0400 Body temperature 98.1 [degF] DO Griselda Kuns Work Phone: [facility] 04-16-2022 19:45-0400 Body weight 78 kg DO Griselda Kuns Work Phone: [facility] 04-06-2022 16:31-0400 Body height 172.72 cm DO Griselda Kuns Work Phone: [facility] 04-06-2022 16:31-0400 Body temperature 98.1 [degF] DO Griselda Kuns Work Phone: [facility] 04-06-2022 16:31-0400 Body weight 79.37 kg DO Griselda Kuns Work Phone: [facility] 04-06-2022 16:31-0400 Diastolic blood pressure 108 mm[Hg] DO Griselda Kuns Work Phone: [facility] 04-06-2022 16:31-0400 Heart rate 95 /min DO Griselda Kuns Work Phone: [facility] 04-06-2022 16:31-0400 Respiratory rate 19 /min DO Griselda Kuns Work Phone: [facility] 04-06-2022 16:31-0400 SaO2% (BldA) [Mass fraction] 97 % DO Griselda Kuns Work Phone: [facility] 04-06-2022 16:31-0400 Systolic blood pressure 138 mm[Hg] DO Griselda Kuns Work Phone: [facility] 03-16-2022 13:30-0400 Body height 172.72 cm Griselda [employer] Other [employer] Other 03-16-2022 13:30-0400 Body mass index (BMI) [Ratio] 26.91 kg/m2 Griselda Kuns Other [employer] Other 03-16-2022 13:30-0400 Body weight 80.29 kg Griselda Kuns Other [employer] Other 03-16-2022 13:30-0400 Diastolic blood pressure 80 mm[Hg] Griselda Kuns Other [employer] Other 03-16-2022 13:30-0400 Respiratory rate 16 /min Griselda Kuns Other [employer] Other 03-16-2022 13:30-0400 SaO2% (BldA) [Mass fraction] 97 % Griselda Kuns Other [employer] Other 03-16-2022 13:30-0400 Systolic blood pressure 140 mm[Hg] Griselda Kuns Other [employer] Other 01-30-2022 12:00-0400 Body height 172.72 cm Griselda Kuns Other [employer] Other 01-30-2022 12:00-0400 Body mass index (BMI) [Ratio] 26.3 kg/m2 Griselda Kuns Other [employer] Other 01-30-2022 12:00-0400 Body weight 78.47 kg Griselda Kuns Other [employer] Other 01-30-2022 12:00-0400 Diastolic blood pressure 82 mm[Hg] Griselda Kuns Other [employer] Other 01-30-2022 12:00-0400 Respiratory rate 16 /min Griselda Kuns Other [employer] Other 01-30-2022 12:00-0400 SaO2% (BldA) [Mass fraction] 99 % Griselda Kuns Other [employer] Other 01-30-2022 12:00-0400 Systolic blood pressure 146 mm[Hg] Griselda Kuns Other [employer] Other 12-26-2021 11:00-0400 Body height 172.72 cm Griselda Kuns Other [employer] Other 12-26-2021 11:00-0400 Body mass index (BMI) [Ratio] 26.61 kg/m2 Griselda Kuns Other [facility] Other 12-26-2021 11:00-0400 Body weight 79.38 kg Griselda Kuns Other [facility] Other 12-26-2021 11:00-0400 Diastolic blood pressure 80 mm[Hg] Griselda Kuns Other [employer] Other 12-26-2021 11:00-0400 Respiratory rate 16 /min Griselda Kuns Other [employer] Other 12-26-2021 11:00-0400 SaO2% (BldA) [Mass fraction] 96 % Griselda Kuns Other [employer] Other 12-26-2021 11:00-0400 Systolic blood pressure 166 mm[Hg] Griselda Kuns Other [employer] Other 12-05-2021 10:15-0400 Body height 172.72 cm Griselda Kuns Other [employer] Other 12-05-2021 10:15-0400 Body mass index (BMI) [Ratio] 269.71 kg/m2 Griselda Kuns Other [employer] Other 12-05-2021 10:15-0400 Body weight 804.69 kg Griselda Kuns Other [employer] Other 12-05-2021 10:15-0400 Diastolic blood pressure 72 mm[Hg] Griselda Kuns Other [employer] Other 12-05-2021 10:15-0400 Respiratory rate 18 /min Griselda Kuns Other [employer] Other 12-05-2021 10:15-0400 SaO2% (BldA) [Mass fraction] 99 % Griselda Kuns Other [employer] Other 12-05-2021 10:15-0400 Systolic blood pressure 130 mm[Hg] Griselda Kuns Other [employer] Other 11-08-2021 11:15-0400 Body height 172.72 cm Griselda Kuns Other [employer] Other 11-08-2021 11:15-0400 Body mass index (BMI) [Ratio] 27.06 kg/m2 Griselda Kuns Other [employer] Other 11-08-2021 11:15-0400 Body weight 80.74 kg Griselda Kuns Other [employer] Other 11-08-2021 11:15-0400 Diastolic blood pressure 80 mm[Hg] Griselda Krause Other [facility] [employer] Other 11-08-2021 11:15-0400 Respiratory rate 16 /min Griselda Krause Other [facility] [employer] Other 11-08-2021 11:15-0400 SaO2% (BldA) [Mass fraction] 97 % Griselda Krause Other [facility] [employer] Other 11-08-2021 11:15-0400 Systolic blood pressure 128 mm[Hg] Griselda Krause Other [facility] [employer] Other 11-03-2021 09:38-0400 Body height 170.51 cm Griselda Neisha Krause Work Phone: [facility] Work Phone: 11-03-2021 09:38-0400 Body mass index (BMI) [Ratio] 27.05 kg/m2 Griselda Neisha Krause Work Phone: [facility] Work Phone: 11-03-2021 09:38-0400 Body surface area Derived from formula 1.91 m2 Griselda Neisha Krause Work Phone: [facility] Work Phone: 11-03-2021 09:38-0400 Body temperature 98.2 [degF] Griselda Neisha Krause Work Phone: [facility] Work Phone: 11-03-2021 09:38-0400 Body weight 78.65 kg Griselda Neisha Krause Work Phone: [facility] Work Phone: 11-03-2021 09:38-0400 Diastolic blood pressure 67 mm[Hg] Griseldakeith Krause Work Phone: [facility] Work Phone: 11-03-2021 09:38-0400 Heart rate 63 /min Griseldakeith Krause Work Phone: [facility] Work Phone: 11-03-2021 09:38-0400 Respiratory rate 16 /min Griseldakeith Krause Work Phone: [facility] Work Phone: 11-03-2021 09:38-0400 SaO2% (BldA) [Mass fraction] 99 % Griselda Krause Work Phone: [facility] Work Phone: 11-03-2021 09:38-0400 Systolic blood pressure 147 mm[Hg] Griseldakeith Krause Work Phone: [facility] Work Phone: 11-03-2021 09:38-0400 7 1 Griselda Krause Work Phone: [facility] Work Phone: Comment on above: [employer] 11-01-2021 13:30-0400 Body height 172.72 cm Griselda Krause Other [employer] Other 11-01-2021 13:30-0400 Body mass index (BMI) [Ratio] 26.61 kg/m2 Griselda Krause Other [employer] Other 11-01-2021 13:30-0400 Body weight 79.38 kg Griselda Krause Other [facility] Other 11-01-2021 13:30-0400 Diastolic blood pressure 78 mm[Hg] Griseldakeith Mendezs Other [facility] Other 11-01-2021 13:30-0400 Respiratory rate 18 /min Griselda Mendezs Other [facility] [employer] Other 11-01-2021 13:30-0400 SaO2% (BldA) [Mass fraction] 99 % Griseldakeith Mendezs Other [facility] Other 11-01-2021 13:30-0400 Systolic blood pressure 140 mm[Hg] Griselda Kuns Other [facility] Other 10-24-2021 09:45-0400 Body height 172.72 cm Sheng Elsxavier Other [employer] Other 10-24-2021 09:45-0400 Body mass index (BMI) [Ratio] 26.76 kg/m2 Sheng Elsxavier Other [facility] Other 10-24-2021 09:45-0400 Body weight 79.83 kg Sheng Elsxavier Other [facility] Other 10-13-2021 09:50-0400 Body height 172 cm Memo Cole MD Work Phone: [facility] 10-13-2021 09:50-0400 Body temperature 97.5 [degF] Memo Cole MD Work Phone: [facility] 10-13-2021 09:50-0400 Body weight 81.28 kg Memo Cole MD Work Phone: [facility] 10-13-2021 09:50-0400 Diastolic blood pressure 77 mm[Hg] Memo Cole MD Work Phone: [facility] 10-13-2021 09:50-0400 Heart rate 70 /min Memo Cole MD Work Phone: [facility] 10-13-2021 09:50-0400 Respiratory rate 16 /min Memo Cole MD Work Phone: [facility] 10-13-2021 09:50-0400 SaO2% (BldA) [Mass fraction] 99 % Memo Cole MD Work Phone: [facility] 10-13-2021 09:50-0400 Systolic blood pressure 152 mm[Hg] Memo Cole MD Work Phone: [facility] 09-19-2021 10:45-0400 Body height 172.72 cm [employer] Other [employer] Other 09-19-2021 10:45-0400 Body mass index (BMI) [Ratio] 26.15 kg/m2 [employer] Other [employer] Other 09-19-2021 10:45-0400 Body weight 78.02 kg [employer] Other [employer] Other 09-19-2021 10:45-0400 Diastolic blood pressure 80 mm[Hg] Griselda Kuns Other [employer] Other 09-19-2021 10:45-0400 Respiratory rate 18 /min Griselda Kuns Other [employer] Other 09-19-2021 10:45-0400 SaO2% (BldA) [Mass fraction] 99 % [employer] Other [employer] Other 09-19-2021 10:45-0400 Systolic blood pressure 140 mm[Hg] Griselda Kuns Other [employer] Other 06-30-2021 13:30-0500 Body height 172.72 cm Griselda Kuns Other [employer] Other 04-14-2021 08:45-0400 Body height 172.72 cm Griselda Kuns Other [employer] Other 04-14-2021 08:45-0400 Body mass index (BMI) [Ratio] 25.85 kg/m2 Griselda Kuns Other [employer] Other 04-14-2021 08:45-0400 Body weight 77.11 kg Griselda Kuns Other [employer] Other 04-14-2021 08:45-0400 Diastolic blood pressure 80 mm[Hg] Griselda Kuns Other [employer] Other 04-14-2021 08:45-0400 Respiratory rate 16 /min Griselda Kuns Other [employer] Other 04-14-2021 08:45-0400 SaO2% (BldA) [Mass fraction] 99 % Griselda Kuns Other [employer] Other 04-14-2021 08:45-0400 Systolic blood pressure 124 mm[Hg] Griselda Kuns Other [employer] Other Encounters Encounter Date Encounter Type Care Provider Facility Start: 07-03-2024 End: 07-03-2024 ambulatory Griselda Kuns DO Work Phone: [facility] Work Phone: Start: 07-03-2024 End: 07-03-2024 Patient encounter procedure Griselda Kuns DO Work Phone: [facility] [place] Work Phone: Start: 07-02-2024 End: 07-02-2024 Bamboo flowsheet Elvi Cadena MD Work Phone: [facility] Start: 07-02-2024 End: 07-02-2024 Bamboo flowsheet Elvi Cadena MD Work Phone: [facility] Start: 07-02-2024 End: 07-02-2024 Clinical Support Elvi Cadena MD Work Phone: [facility] Comment on above: Nerve root and plexu s disorder, unspecified (Primary Dx) Start: 06-30-2024 End: 06-30-2024 Postop follow up visit related to original px Camille Harris MD Work Phone: [facility] Comment on above: Status post cervical spinal fusion (Primary Dx) Start: 06-30-2024 End: 06-30-2024 ambulatory [facility] Ambulatory Start: 06-24-2024 End: 06-24-2024 Patient encounter procedure Griselda Kuns DO Work Phone: [facility] Work Phone: Start: 06-24-2024 End: 06-24-2024 ambulatory Griselda Kuns DO Work Phone: [facility] Work Phone: Start: 05-21-2024 End: 05-21-2024 Bamboo flowsheet Elvi Cadena MD Work Phone: [facility] Start: 05-21-2024 End: 05-21-2024 Bamboo flowsheet Elvi Cadena MD Work Phone: [facility] Start: 05-21-2024 End: 05-21-2024 Clinical Support Elvi Cadena MD Work Phone: [facility] Comment on above: Other nerve root and plexus disorders (Primary Dx); Cervical paraspinal muscle spasm; Cervical stenosis of spinal canal Start: 04-30-2024 End: 04-30-2024 Postop follow up visit related to original px Solomon Narayanan PA-C Work Phone: [facility] Comment on above: Cervical radiculopat hy (Primary Dx); Status post cervical spinal fusion; Acute postoperative pain; Muscle spasms of neck Start: 04-30-2024 End: 04-30-2024 [facility] [facility] Start: 04-28-2024 End: 04-28-2024 ambulatory [facility] Work Phone: Start: 04-28-2024 End: 04-28-2024 Patient encounter procedure [facility] Work Phone: Start: 04-09-2024 End: 04-10-2024 ambulatory [facility] Start: 04-09-2024 End: 04-10-2024 Evaluation and management of inpatient Camille Harris MD Work Phone: [facility] Kassandra Emerson 4 Comment on above: Cervical radiculopat hy (Primary Dx); Senile osteoporosis Start: 04-01-2024 End: 04-01-2024 [facility] Work Phone: Start: 04-01-2024 End: 04-01-2024 Patient encounter procedure [facility] [place] Work Phone: Start: 03-31-2024 End: 03-31-2024 Subsequent hospital visit by physician Rad External Film EF [facility] EXTERNAL [facility]M [facility] Comment on above: Arrived Start: 03-31-2024 End: 03-31-[facility] Start: 03-26-2024 End: 03-26-2024 ambulatory [facility] Start: 03-19-2024 End: 03-19-2024 [facility] Start: 02-13-2024 End: 02-13-2024 Subsequent hospital visit by physician Kasey X-Ray 1 [facility] Comment on above: Cervical radiculopat hy Start: 02-13-2024 End: 02-13-2024 ambulatory [facility] Start: 02-13-2024 End: 02-13-2024 ambulatory [facility] Start: 02-11-2024 End: 02-12-2024 ambulatory [facility] Start: 02-11-2024 End: 02-11-2024 ambulatory [facility] Start: 02-11-2024 End: 02-11-2024 Subsequent hospital visit by physician Daniel Reynaga1800 Cr Nonv1 Holter/Ecg Resource [facility] Comment on above: Cervical radiculopat hy; Senile osteoporosis Start: 02-04-2024 End: 02-04-[address] [facility] Start: 01-31-2024 End: 01-31-2024 ambulatory [facility] Work Phone: Start: 01-31-2024 End: 01-31-2024 Patient encounter procedure [facility] [place] Work Phone: Start: 01-16-2024 End: 01-16-2024 ambulatory ELVI CADENA Not Available Start: 01-03-2024 End: 01-03-2024 Office outpatient new 60 minutes Camille Harris MD Work Phone: [facility] Comment on above: Cervical radiculopat hy (Primary Dx); Senile osteoporosis Start: 01-03-2024 End: 01-03-2024 ambulatory [facility] Ambulatory Start: 01-02-2024 End: 01-02-2024 ambulatory LANDY ROSS Not Available Start: 12-17-2023 End: 12-17-2023 ambulatory Sarina Ramsey MD Facility:[facility] Start: 12-13-2023 End: 12-13-2023 Office outpatient visit 40 minutes Ignacia B Jack MD Work Phone: [facility] 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) Start: 12-13-2023 End: 12-13-2023 ambulatory IGNACIA JACK [facility] Start: 12-13-2023 End: 12-13-2023 Subsequent hospital visit by physician [facility] 1 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) Start: 12-13-2023 End: 12-13-2023 ambulatory SHIMON HEATON [facility] Start: 12-12-2023 End: 12-12-2023 Office outpatient new 45 minutes Solomon Narayanan PA-C Work Phone: [facility] Comment on above: Cervical radiculopat hy (Primary Dx); Occipital neuralgia of left side; Balance problem Start: 12-12-2023 End: 12-12-2023 ambulatory SOLOMON NARAYANAN [facility] Ambulatory Start: 12-11-2023 End: 12-11-2023 ambulatory ELVI CADENA Not Available Start: 12-03-2023 End: 12-03-2023 ambulatory DO Griselda Krause Work Phone: [facility] Work Phone: Start: 12-03-2023 End: 12-03-2023 Patient encounter procedure DO Griselda Kuns Work Phone: [facility] [place] Work Phone: Start: 11-28-2023 End: 11-28-2023 ambulatory KARIMEAn MUSTAFAESTER Not Available Start: 11-02-2023 End: 11-02-2023 ambulatory MEMO COLE Facility:[facility] Start: 11-02-2023 End: 11-02-2023 Office outpatient visit 25 minutes Memo Cole MD Work Phone: Hematology/Oncology Comment on above: 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) Start: 10-29-2023 End: 10-29-2023 ambulatory DO Griselda Kuns Work Phone: [facility] Work Phone: Start: 10-29-2023 End: 10-29-2023 Patient encounter procedure DO Griselda Kuns Work Phone: [facility] [place] Work Phone: Start: 10-26-2023 End: 10-26-2023 ambulatory MEMO ABHYANKAR Facility:[facility] Start: 10-26-2023 Non-patient / Non-visit DO Glory tt Kuns Work Phone[facility] Work Phone: Start: 10-26-2023 End: 10-26-2023 Subsequent hospital visit by physician Arrival Time Radiology Work Phone: [facility] Comment on above: 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] Start: 10-24-2023 End: 10-24-2023 ambulatory NIKOLE THOMASON Not Available Start: 10-22-2023 End: 10-22-2023 ambulatory Sarina Ramsey MD Facility:[facility] Start: 10-18-2023 End: 10-18-2023 Patient encounter procedure DO Griselda Kuns Work Phone: [facility] Work Phone: Start: 10-16-2023 End: 10-16-2023 ambulatory ELVI CADENA Not Available Start: 10-09-2023 End: 10-09-2023 Patient encounter procedure DO Griselda Kuns Work Phone: [facility] Work Phone: Start: 10-09-2023 End: 10-09-2023 ambulatory DO Griselda Kuns Work Phone: [facility] Work Phone: Start: 10-05-2023 End: 10-05-2023 Office outpatient new 60 minutes Ignacia Jack MD Work Phone: [facility] Comment on above: Brainstem lesion (Pr imary Dx); Pontine glioma (Multi) Start: 10-05-2023 End: 10-05-2023 ambulatory IGNACIA JACK [facility] Start: 10-04-2023 End: 10-04-2023 ambulatory JOSE MARRUFO Not Available Start: 10-01-2023 End: 10-01-2023 ambulatory Sarina Ramsey MD Facility:[facility] Start: 09-19-2023 End: 09-19-2023 Subsequent hospital visit by physician Rad External Film EF [facility]TER[facility] [employer] Comment on above: Arrived Start: 09-19-2023 End: 09-19-2023 ambulatory LIBBY GROSS [facility] Start: 09-10-2023 End: 09-10-2023 ambulatory JEREMY DISLA Not Available Start: 09-05-2023 End: 09-05-2023 ambulatory DO Griselda Kuns Work Phone: [facility] Work Phone: Start: 09-05-2023 End: 09-05-2023 Patient encounter procedure DO Griselda Kuns Work Phone: [facility] Work Phone: Start: 09-05-2023 End: 09-05-2023 Patient encounter procedure DO Griselda Kuns Work Phone: [facility] V[facility] Surgery Work Phone: Start: 09-05-2023 End: 09-05-2023 ambulatory DO Griselda Kuns Work Phone: [facility] Work Phone: Start: 09-03-2023 End: 09-03-2023 ambulatory Sairna Ramsey MD Facility:[facility] Start: 08-30-2023 End: 08-30-2023 ambulatory NIKOLE THOMASON Not Available Start: 08-15-2023 End: 08-15-2023 Patient encounter procedure DO Griselda Kuns Work Phone[facility] Work Phone: Start: 08-14-2023 End: 08-14-2023 ambulatory NIKOLE THOMASON Not Available Start: 08-06-2023 End: 08-06-2023 ambulatory Sarina Ramsey MD Facility: [facility] Start: 08-02-2023 End: 08-02-2023 ambulatory DO Griselda Kuns Work Phone: [facility] Work Phone: Start: 08-02-2023 End: 08-02-2023 Patient encounter procedure DO Griselda Kuns Work Phone: [facility] Work Phone: Start: 07-26-2023 Chart abstracting Nikole Thomason [employer] Work Phone: [facility] Start: 07-26-2023 End: 07-26-2023 ambulatory NIKOLE THOMASON Not Available Start: 07-19-2023 Bamboo flowsheet Nikole Thomason [employer] Work Phone: [facility] Start: 07-19-2023 Bamboo flowsheet Nikole Thomason [employer] Work Phone: [facility] Start: 07-19-2023 End: 07-19-2023 ambulatory NIKOLE THOMASON Not Available Start: 07-18-2023 End: 07-21-2023 ambulatory ADDISMADDY KHAN [facility] Start: 07-02-2023 End: 07-02-2023 ambulatory Griselda Kuns Other [facility] [employer] Other Start: 07-02-2023 Office outpatient vi sit 25 minutes Griselda Kuns [facility] Start: 07-02-2023 End: 07-02-2023 Patient encounter procedure DO Griselda Kuns Work Phone: [facility] [place] Work Phone: Start: 05-31-2023 End: 05-31-2023 ambulatory Griselda Kuns Other [employer] Other Start: 05-31-2023 Office outpatient vi sit 25 minutes Griselda Kuns [facility] [place] Start: 05-30-2023 Office outpatient vi sit 15 minutes Ruddy Harvey [facility] Start: 05-30-2023 End: 05-30-2023 ambulatory DO Griselda Kuns Work Phone: [facility] [employer] Other Start: 05-30-2023 End: 05-31-2023 Patient encounter procedure DO Griselda Kuns Work Phone: [facility]Ultrasound [facility] Start: 05-30-2023 End: 05-30-2023 Patient encounter procedure DO Griselda Kuns Work Phone: [facility] Work Phone: Start: 05-15-2023 End: 05-15-2023 ambulatory Lilliam Cason Other [employer] Other Start: 05-15-2023 Office outpatient vi sit 25 minutes Lilliam Cason [facility] Start: 05-15-2023 Telephone encounter Lilliam Cason FP G Ad Clerk Start: 05-15-2023 End: 05-15-2023 Patient encounter procedure DO Griselda Kuns Work Phone: [facility] Work Phone: Start: 05-14-2023 End: 05-14-2023 ambulatory Sarina Ramsey MD Facility:[facility] Start: 05-07-2023 End: 05-07-2023 Admission to same day surgery center DO Griselda Kuns Work Phone: [facility]Interventional Radiology Work Phone: Start: 05-07-2023 End: 05-07-2023 ambulatory DO Griselda Kuns Work Phone: [facility] Work Phone: Start: 05-04-2023 End: 05-04-2023 ambulatory DO Griselda Kuns Work Phone: [facility] Work Phone: Start: 05-04-2023 End: 05-04-2023 Patient encounter procedure DO Griselda Kuns Work Phone: [facility] Work Phone: Start: 05-03-2023 End: 05-03-2023 ambulatory Ruddy Harvey Other [employer] Other Start: 05-03-2023 Office outpatient ne w 45 minutes Ruddy Harvey [facility] Start: 05-03-2023 Telephone encounter Ruddy craft [facility] Ad Clerk Start: 05-01-2023 End: 05-01-2023 ambulatory Griselda Kuns Other [employer] Other Start: 05-01-2023 Office outpatient vi sit 25 minutes Griselda Kuns [facility] [place] Start: 04-25-2023 End: 04-25-2023 ambulatory DO Griselda Kuns Work Phone: [facility] Work Phone: Start: 04-25-2023 End: 04-25-2023 Patient encounter procedure DO Griselda Kuns Work Phone: [facility] Work Phone: Start: 04-16-2023 End: 04-16-2023 ambulatory Sarina Ramsey MD Facility: [facility] Start: 04-12-2023 End: 04-12-2023 ambulatory Lilliam Cason Other [employer] Other Start: 04-12-2023 Telephone encounter Lilliam Cason [facility] Cardiology Start: 04-11-2023 End: 04-11-2023 ambulatory Lilliam Cason Other [employer] Other Start: 04-11-2023 Office outpatient ne w 45 minutes Lilliam Cason [facility] Start: 04-10-2023 End: 04-10-2023 ambulatory Griselda Kuns Other [employer] Other Start: 04-10-2023 Telephone encounter [facility] Start: 03-30-2023 End: 03-30-2023 ambulatory DO Griselda Kuns Work Phone: [facility] Work Phone: Start: 03-30-2023 End: 03-30-2023 Patient encounter procedure DO Griselda Kuns Work Phone: [facility] Work Phone: Start: 03-21-2023 End: 03-21-2023 Emergency department patient visit DO Griselda Kuns Work Phone: [facility]-Emergency Room Work Phone: Start: 03-15-2023 End: 03-15-2023 ambulatory Griselda Kuns Other [employer] Other Start: 03-15-2023 Office outpatient vi sit 25 minutes Griselda Kuns [facility] [place] Start: 03-08-2023 End: 03-08-2023 ambulatory Griselda Kuns Other [employer] Other Start: 03-08-2023 Office outpatient vi sit 25 minutes Griselda Kuns [facility] [place] Start: 02-26-2023 End: 02-26-2023 Emergency department patient visit DO Griselda Kuns Work Phone: [facility]-Emergency Room Work Phone: Start: 12-28-[address] BRET Lawrence ity:UNKNOWN Start: 12-05-2022 End: 12-05-2022 ambulatory Griselda Kuns Other [facility] [employer] Other Start: 12-05-2022 Office outpatient vi sit 25 minutes Griselda Tomekas [facility] Start: 11-15-2022 End: 11-15-2022 ambulatory DO Griselda Kuns Work Phone: [facility] Work Phone: Start: 11-15-2022 End: 11-15-2022 Patient encounter procedure DO Griselda Kuns Work Phone: [facility]-MRI [address] Work Phone: Start: 10-27-2022 End: 10-27-2022 Subsequent hospital visit by physician Arrival Time Radiology Work Phone: [facility] Comment on above: Malignant neoplasm o f head, 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] Start: 10-24-2022 End: 10-24-2022 ambulatory DO Griselda Kuns Work Phone: [facility] Work Phone: Start: 10-24-2022 End: 10-24-2022 Patient encounter procedure DO Griselda Kuns Work Phone: [facility]-Lab [place] Work Phone: Start: 09-28-2022 End: 09-28-2022 ambulatory DEMOND CAT Facility:[facility] Start: 09-22-2022 End: 09-22-2022 Subsequent hospital visit by physician Mri Skyra (I-Stat/3t) Work Phone: Radiology Comment on above: 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] Start: 09-18-2022 Telephone encounter Kelly ghosh PA-C Work Phone: [facility] Comment on above: Patient Question Start: 09-13-2022 End: 09-13-2022 Patient encounter procedure Kelly Perez PA-C Work Phone: [facility] Comment on above: NPH (normal pressure hydrocephalus) (HCC) (Primary Dx) Start: 08-31-2022 End: 08-31-2022 ambulatory Griselda Kuns Other [employer] [facility] [employer] Other Start: 08-31-2022 Office outpatient vi sit 25 minutes Griselda Kuns [facility] Start: 08-01-2022 End: 08-01-2022 ambulatory Griselda Kuns Other [employer] [facility] [employer] Other Start: 08-01-2022 Office outpatient vi sit 25 minutes Griselda Kuns [facility] Start: 07-17-2022 End: 07-17-2022 ambulatory DO Griselda Kuns Work Phone: [facility] Work Phone: Start: 07-17-2022 End: 07-17-2022 Patient encounter procedure DO Griselda Kuns Work Phone: [facility] Work Phone: Start: 07-14-2022 End: 07-14-2022 Patient encounter procedure DO Griselda Kuns Work Phone: [facility] Work Phone: Start: 06-28-2022 End: 06-28-2022 ambulatory Trish Blades Other [employer] Other Start: 06-28-2022 Office outpatient ne w 45 minutes Trish Blades [facility] Neurosurgery Start: 05-26-2022 End: 05-26-2022 ambulatory Griselda Kuns Other [employer] Other Start: 05-26-2022 Office outpatient vi sit 25 minutes Griselda Kuns [facility] Start: 05-17-2022 End: 05-17-2022 ambulatory DO Griselda Kuns Work Phone: [facility] Work Phone: Start: 05-17-2022 End: 05-17-2022 Discharged Recurring DO Griselda Kuns Work Phone: [facility]-Physical Therapy [address] Start: 04-27-2022 Registered Recurring DO Griselda Kuns Work Phone: [facility]-Physical Therapy [address] Start: 04-16-2022 End: 04-17-2022 Emergency department patient visit DO Griselda Kuns Work Phone: [facility]-Emergency Room Start: 04-10-2022 End: 04-10-2022 ambulatory Griselda Kuns Other [employer] Other Start: 04-10-2022 Telephone encounter Griselda Kuns [facility] Start: 04-06-2022 End: 04-06-2022 Emergency department patient visit DO Griselda Kuns Work Phone: [facility]-Emergency Room Start: 03-27-2022 Telephone encounter Asya Reynolds RN Hematology/Oncology Comment on above: Appointment Start: 03-22-2022 End: 03-22-2022 ambulatory Griselda Kuns Other [employer] Other Start: 03-22-2022 Telephone encounter Griselda Kuns [facility] Start: 03-16-2022 End: 03-16-2022 ambulatory Griselda Kuns Other [employer] Other Start: 03-16-2022 Office outpatient vi sit 25 minutes Griselda Kuns [facility] Start: 03-16-2022 Telephone encounter [facility] Comment on above: Triage (Internal Ref erral--old) Start: 03-09-2022 End: 03-09-2022 ambulatory Griselda Kuns Other [employer] Other Start: 03-09-2022 Telephone encounter Griselda Kuns [facility] Start: 03-07-2022 End: 03-07-2022 ambulatory Griselda Kuns Other [employer] Other Start: 03-07-2022 Telephone encounter Griselda Kuns [facility] Start: 03-03-2022 Telephone encounter Griselda Kuns [facility] Start: 03-03-2022 End: 03-03-2022 ambulatory DO Griselda Kuns Work Phone: [employer] Other Start: 03-03-2022 End: 03-03-2022 Discharged Recurring DO Griselda Kuns Work Phone: [facility]-Physical Therapy [facility] Start: 03-03-2022 Registered Recurring DO Griselda Kuns Work Phone: [facility]-Physical Therapy [facility] Start: 02-07-2022 End: 02-07-2022 ambulatory Griselda Kuns Other [employer] Other Start: 02-07-2022 Telephone encounter Griselda Kuns [facility] Start: 01-30-2022 End: 01-30-2022 ambulatory Griselda Kuns Other [employer] Other Start: 01-30-2022 Office outpatient vi sit 25 minutes Griselda Kuns [facility] Start: 01-12-2022 End: 01-12-2022 ambulatory Griselda Kuns Other [employer] Other Start: 01-12-2022 Telephone encounter Griselda Kuns [facility] [place] Start: 12-26-2021 End: 12-26-2021 ambulatory Griselda Kuns Other [employer] Other Start: 12-26-2021 Office outpatient vi sit 25 minutes Griselda Kuns [facility] [place] Start: 12-23-2021 End: 12-23-2021 ambulatory Griselda Kuns Other [employer] Other Start: 12-23-2021 Telephone encounter Griselda Kuns [facility] [place] Start: 12-05-2021 End: 12-05-2021 ambulatory Griselda Kuns Other [employer] Other Start: 12-05-2021 Office outpatient vi sit 25 minutes Griselda Kuns [facility] [place] Start: 12-05-2021 Telephone encounter Griselda Kuns [facility] [place] Start: 11-22-2021 End: 11-22-2021 ambulatory Griselda Kuns Other [employer] Other Start: 11-22-2021 Telephone encounter Griselda Kuns [facility] [place] Start: 11-21-2021 Office outpatient vi sit 15 minutes Griselda R Kuns Work Phone: [facility] Work Phone: Start: 11-09-2021 End: 11-09-2021 ambulatory Griselda Kuns Other [employer] Other Start: 11-09-2021 Telephone encounter Griselda Kuns [facility] [place] Start: 11-08-2021 End: 11-08-2021 ambulatory Griselda Kuns Other [employer] Other Start: 11-08-2021 Office outpatient vi sit 25 minutes Griselda Tomekas [facility] Start: 11-03-2021 Office consultation new/estab patient 60 min Griselda Krause Work Phone: [facility] Work Phone: Start: 11-01-2021 End: 11-01-2021 ambulatory Griselda Krause Other [employer] Other Start: 11-01-2021 Office outpatient vi sit 25 minutes Griselda Tomekas [facility] Start: 10-31-2021 End: 10-31-2021 ambulatory Sheng Schneider Other [employer] Other Start: 10-31-2021 Telephone encounter Sheng Clark [facility] Neurosurgery Start: 10-27-2021 End: 10-27-2021 ambulatory Memo Cole MD Work Phone: Hematology/Oncology Comment on above: 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); Lung nodules; Malignant neoplasm of head, face and neck (HCC) Start: 10-27-2021 End: 10-27-2021 Telemedicine consultation with patient Memo Cole MD Work Phone: [place] Start: 10-24-2021 End: 10-24-2021 ambulatory Sheng Schneider Other [employer] Other Start: 10-24-2021 Office outpatient ne w 30 minutes Sheng Schneider [facility] Neurosurgery Start: 10-13-2021 Telephone encounter Memo kapoor MD Work Phone: [facility] Comment on above: Referral Information (Neurosurgery) Start: 10-13-2021 End: 10-13-2021 ambulatory Memo Cole MD Work Phone: Hematology/Oncology Comment on above: Glioma of brain (HCC ) (Primary Dx); Lung nodules; 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) Start: 10-13-2021 End: 10-13-2021 Patient encounter procedure Memo Cole MD Work Phone: [place] Start: 10-06-2021 End: 10-06-2021 ambulatory Griselda Kuns Other [facility] Other Start: 10-06-2021 Telephone encounter Asya Kumar RN Hematology/Oncology Comment on above: Results Start: 10-06-2021 End: 10-06-2021 Subsequent hospital visit by physician Arrival Time Radiology Work Phone: Radiology Pet CT Comment on above: Malignant neoplasm o f head, 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] Start: 09-29-2021 End: 09-29-2021 ambulatory Griselda Kuns Other [facility] Other Start: 09-29-2021 Telephone encounter Griselda Kuns [facility] Start: 09-27-2021 End: 09-27-2021 ambulatory Griselda Kuns Other [employer] Other Start: 09-27-2021 Telephone encounter Griselda Kuns [facility] Start: 09-19-2021 End: 09-19-2021 ambulatory Griselda Kuns Other [facility] Other Start: 09-19-2021 Office outpatient vi sit 25 minutes Griselda Kuns [facility] Start: 09-12-2021 End: 09-12-2021 ambulatory Griselda Kuns Other [facility] Other Start: 09-12-2021 Telephone encounter Griselda Kuns [facility] Start: 09-08-2021 End: 09-08-2021 ambulatory Griselda Kuns Other [facility] [employer] Other Start: 09-08-2021 Telephone encounter Griselda Kuns [facility] Start: 06-30-2021 End: 06-30-2021 ambulatory Griselda Kuns Other [facility] [employer] Other Start: 06-30-2021 Office outpatient vi sit 15 minutes Griselda Kuns [facility] Start: 06-30-2021 Telephone encounter Griselda Kuns [facility] Start: 06-29-2021 End: 06-29-2021 ambulatory Griselda Kuns Other [facility] [employer] Other Start: 06-29-2021 Nursing evaluation o f patient and report Griselda Kuns [facility] Start: 04-19-2021 End: 04-19-2021 ambulatory Griselda Kuns Other [facility] Other Start: 04-19-2021 Nursing evaluation o f patient and report Griselda Kuns [facility] Start: 04-19-2021 Telephone encounter Griselda Kuns [facility] Start: 04-14-2021 Office outpatient vi sit 15 minutes Griselda Kuns [facility] Start: 10-01-2020 End: 10-01-2020 Patient encounter procedure Griseldakeith Krause Work Phone: -Electrodiagnostics Start: 09-20-2020 End: 09-20-2020 Patient encounter procedure Griselda Kuns -Lab [facility] Start: 09-13-2020 End: 09-13-2020 Patient encounter procedure Griselda Tomekas -[facility] Procedures Date Procedure Procedure Detail Performing Clinician Start: 06-24-2024 X-ray of cervical spine Griselda Krause DO Work Phone: Start: 04-10-2024 Basic metabolic panel calcium total Chicho Bryan MD Work Phone: Start: 04-10-2024 Radex spine cervical 2 or 3 views Nate Alvarez MD Work Phone: Start: 04-09-2024 PULSE OXIMETRY, CONTINUOUS Fred flores MD Work Phone: Start: 04-09-2024 XR tomography Unspecified body region Camille Harris MD Work Phone: Start: 04-09-2024 Chloride bld Shelly M Capp CAA Work Phone: Start: 04-09-2024 End: 04-09-2024 Arthrd ant interbody decompress cervical belw c2 Camille Harris MD Work Phone: Start: 04-09-2024 Blood typing serologic rh (d) Camille meza MD Work Phone: Start: 03-31-2024 Study Interpretation of outside study Camille Harris MD Work Phone: Start: 02-13-2024 Dxa bone density study 1/> sites axial skel Camille Harris MD Work Phone: Start: 02-12-2024 Ecg routine ecg w/least 12 lds trcg only w/o i&r Camille Harris MD Work Phone: Start: 12-13-2023 Mri brain brain stem w/o w/contrast material Shimon Heaton PA-C Work Phone: Start: 10-26-2023 Ct soft tissue neck w/contrast material Memo Cole MD Work Phone: Start: 10-26-2023 Ct thorax w/contrast material Memo kapoor MD Work Phone: Start: 10-26-2023 Blood count complete auto&auto difrntl wbc Memo Cole MD Work Phone: Start: 10-09-2023 Respiratory Panel (PCR) DO [employer] Work Phone: Start: 10-09-2023 Plain chest X-ray DO Griselda [employer] Work Phone: Start: 04-03-2024 MR TRANSFER OF OUTSIDE FILMS LIBBY BOOTH [...] RSV Vaccine (1 - 1-dose 75+ series) [facility] Start: 10-25-2026 Diabetes Screening Diabetes Screening [facility] Start: 02-12-2026 Screening for osteoporosis Bone Density Scan [facility] Start: 01-01-2025 End: 01-01-2025 Patient encounter procedure 01/01/2025 10:30 AM EDT Office Visit [facility] [address] [place] [address] Karime Franco PA [address] [place] [address] [facility] Start: 11-07-2024 End: 11-07-2024 Follow-up encounter 11/07/2024 9:30 AM EDT Visit (SP) Office Hematology/Oncology [address] [place] [address] [place] [address] Memo Cole MD [address] [place] [address] [place] [address] [address] and lab Hematology/Oncolog y Comment on above: [address] and lab Start: 11-03-2024 End: 11-03-2024 Patient encounter procedure 11/03/2024 9:00 AM EDT Appointment Radiology [facility] [address] [place] [address] Ct Chest and neck with contrast and lab Radiology Pet CT Comment on above: Ct Chest and neck with contrast and lab Start: 11-01-2024 End: 11-01-2024 CBC W Auto Differential panel - Blood COMPLETE BLOOD COUNT AND DIFFERENTIAL Lab Routine 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) Expected: 11/01/2024 (Approximate), Expires: 11/01/2024 [facility] Comment on above: Expected: 11/01/2024 (Approximate), Expi res: 11/01/2024 Start: 11-01-2024 End: 11-01-2024 Comprehensive metabolic 2000 panel - Serum or Plasma COMPREHENSIVE METABOLIC PANEL Lab Routine 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) Expected: 11/01/2024 (Approximate), Expires: 11/01/2024 [facility] Comment on above: Expected: 11/01/2024 (Approximate), Expi res: 11/01/2024 Start: 11-01-2024 End: 12-01-2024 CT Chest W contrast IV CT CHEST W IVCON Radiology Routine 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) Expected: 11/01/2024 (Approximate), Expires: 12/01/2024 [facility] Comment on above: Expected: 11/01/2024 (Approximate), Expi res: 12/01/2024 Start: 11-01-2024 End: 12-01-2024 CT Neck W contrast IV CT NECK SOFT TISSUE W IVCON Radiology Routine 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) Expected: 11/01/2024 (Approximate), Expires: 12/01/2024 [facility] Work Phone: Comment on above: Expected: 11/01/2024 (Approximate), Expi res: 12/01/2024 Start: 10-06-2024 DIABETES SCREEN DIABETES SCREEN [facility] Start: 09-29-2024 End: 09-29-2024 Patient encounter procedure 09/29/2024 11:00 AM EDT Office Visit [address] [address] Camille Harris MD [address] [facility], [facility] [address] [place] [address] [facility] Start: 07-31-2024 End: 07-31-2024 Clinical Support 07/31/2024 1:00 PM EST Clinical Support [facility] [address] [facility] [address] [place] [address] Elvi Cadena MD [address] [facility] [address] [id number] [facility] Start: 07-02-2024 End: 07-02-2024 Clinical Support [facility] Comment on above: Arrived Start: 06-30-2024 End: 06-30-2025 XR Cervical spine 2 or 3 Views XR cervical spine 2-3 views Imaging Routine Status post cervical spinal fusion Expected: 06/30/2024, Expires: 06/30/2025 [facility] Service Area Work Phone: Comment on above: Expected: 06/30/2024, Expires: Start: 06-30-2024 End: 06-30-2024 Patient encounter procedure [facility] Start: 05-21-2024 End: 05-21-2024 Clinical Support 05/21/2024 2:00 PM EST Clinical Support [facility] [address] [address] Elvi Cadena MD [address] [facility] [address] [phone] Arrived [facility] Comment on above: Arrived Start: 05-16-2024 End: 05-16-2024 Patient encounter procedure 05/16/2024 9:15 AM EST Office Visit [address] [place] [phone] Camille Harris MD [address] [facility], [address] [place] [address] [facility] Start: 05-02-2024 End: 05-02-2024 Patient encounter procedure [facility] Start: 04-30-2024 End: 04-30-2025 XR Cervical spine 2 or 3 Views XR cervical spine 2-3 views Imaging Routine Cervical radiculopathy Status post cervical spinal fusion Expected: 04/30/2024, Expires: 04/30/2025 [facility] Service Area Work Phone: Comment on above: Expected: 04/30/2024, Expires: Start: 04-30-2024 End: 04-30-2024 Patient encounter procedure 04/30/2024 1:00 PM EST Office Visit [place] [phone] [facility] [address] [place] [phone] Solomon Narayanan PA-C [address] [place] [phone] [facility] Start: 04-09-2024 End: 04-09-2024 Admission to same day surgery center 04/09/2024 7:45 AM EDT - 04/09/2024 12:25 PM EDT Surgery [facility] [place] [address] [place] [address] Camille Harris MD [address] [facility], [address] [place] [address] Fusion Spine Anterior Cervical and Discectomy C5-6, C6-7 [27725 (CPT )] [facility] [place] Comment on above: Fusion Spine Anterior Cervical and Disce ctomy C5-6, C6-7 [14810 (CPT )] Start: 04-09-2024 End: 04-09-2024 Arthrd ant interbody decompress cervical belw c2 Fusion Spine Anterior Cervical and Discectomy Cervical radiculopathy Senile osteoporosis 04/09/2024 7:45 AM EDT Virtual [facility] [place] Start: 04-09-2024 Subsequent hospital visit by physician 04/09/2024 7:45 AM EDT Hospital Encounter [facility] [place] [address] [place] [address] Camille Harris MD [address] [facility], [address] [place] [address] [facility] [place] Start: 03-15-2024 DTaP/Tdap/Td Vaccines (2 - Td or Tdap) DTaP/Tdap/Td Vaccines (2 - Td or Tdap) [facility] Start: 03-15-2024 Urine microalbumin profile DTaP,Tdap,Td Vaccine (2 - Td or Tdap) [facility] Start: 03-11-2024 End: 03-11-2024 Patient encounter procedure 03/11/2024 11:30 AM EDT Office Visit [facility] [address] [facility] [address] [place] [phone] Solomon Narayanan PA-C [address] [place], [place] [phone] [facility] Start: 03-03-2024 Influenza vaccination Influenza Vaccine (#1) [facility] Comment on above: Postponed from 02/16/2023 (Patient Refus ed) Start: 02-27-2024 End: 02-27-2024 Admission to same day surgery center [facility] [place] Comment on above: Anterior Cervical Discectomy and Fusion C5-6, C6-7 [62753 (CPT )] Start: 02-27-2024 End: 02-27-2024 Arthrd ant interbody decompress cervical belw c2 [facility] [place] Start: 02-27-2024 Subsequent hospital visit by physician [facility] [place] Start: 02-17-2024 COVID-19 Vaccine ( season) COVID-19 Vaccine ( season) [facility] Start: 02-17-2024 Covid-19 Vaccine ( season) Covid-19 Vaccine ( season) [facility] Start: 02-17-2024 Covid-19 Vaccine ( season) Covid-19 Vaccine () [facility] Start: 02-17-2024 Influenza vaccination [facility] Start: 02-15-2024 End: 02-15-2024 Patient encounter procedure 02/15/2024 9:00 AM EDT Office Visit [address] Linda [address] [address] Vincenzo Sanchez MD [address] [place] [address] Dr Linda [address], [address] [phone] [facility] Start: 02-13-2024 End: 02-13-2024 Patient encounter procedure 02/13/2024 11:00 AM EDT Appointment [facility] [address] [place] [address] [facility] Start: 02-03-2024 End: 01-02-2025 Nicotine and Metabolites,S Nicotine and Metabolites,S Lab Routine Cervical radiculopathy Senile osteoporosis Expected: 02/03/2024 (Approximate), Expires: 01/02/2025 [facility] Work Phone: Comment on above: Expected: 02/03/2024 (Approximate), Expi res: 01/02/2025 Start: 01-03-2024 End: 01-02-2025 DXA Skeletal system.axial Views for bone density XR DEXA bone density axial skeleton w VFA Imaging Routine Senile osteoporosis Expected: 01/03/2024, Expires: 01/02/2025 [facility] Service Area Work Phone: Comment on above: Expected: 01/03/2024, Expires: Start: 01-03-2024 End: 01-02-2025 XR Cervical spine 6 Views XR cervical spine complete 6+ views Imaging Routine Cervical radiculopathy Expected: 01/03/2024, Expires: 01/02/2025 [facility] Work Phone: Comment on above: Expected: 01/03/2024, Expires: Start: 01-03-2024 End: 01-03-2024 Patient encounter procedure 01/03/2024 1:30 PM EDT Office Visit [facility] [address] [address] Camille Harris MD [address] [facility], [address] [phone] [facility] Start: 12-13-2023 End: 12-12-2024 MR Brain WO and W contrast IV MR brain w and wo IV contrast Imaging Routine Pontine glioma (Multi) Expected: 12/13/2023 (Approximate), Expires: 12/12/2024 [facility] Service Area Work Phone: Comment on above: Expected: 12/13/2023 (Approximate), Expi res: 12/12/2024 Start: 12-13-2023 End: 12-13-2023 Patient encounter procedure [facility] Start: 09-28-2023 End: 09-28-2023 Patient encounter procedure 09/28/2023 10:15 AM EDT Office Visit [facility] [address] [place] [address] [place] [address] Department [place] [address] [facility] Start: 09-05-2023 Ankle brachial pressure index [facility] Start: 08-30-2023 End: 08-30-2023 Patient encounter procedure 08/30/2023 9:40 AM EDT Office Visit [facility] [address] [place] [address] Nikole Thomason, [employer] [address] [place] [address], [place] [address] [facility] Start: 07-26-2023 End: 07-26-2023 Patient encounter procedure 07/26/2023 1:30 PM EST Procedure Visit [facility] [address] [place] [address], [place] [address] Nikole Thomason, [employer] [address] [place] [address], [place] [address] [facility]O 210 Start: 07-19-2023 End: 07-19-2023 Clinical Support 07/19/2023 1:30 PM EST Clinical Support [facility] [address] [place] [address] Nikole Thomason, [employer] [address] [place] [address], [place] [address] [facility] Comment on above: Cervical dystonia Start: 06-18-2023 Behavioral Health Screening Behavioral Health Screening [facility] Start: 05-07-2023 Pulse volume recorder pneumoplethysmography US arterial pvr rest [facility] Start: 05-07-2023 [facility] Start: 05-07-2023 [facility] Start: 04-25-2023 Pulse volume recorder pneumoplethysmography US arterial pvr rest [facility] Start: 02-16-2023 COVID-19 Vaccine ( season) COVID-19 Vaccine ( season) [facility] Start: 02-16-2023 Influenza vaccination INFLUENZA (Season Ended) [facility] Start: 2022 RSV High Risk: (Elderly (60+) or Population) (1 - Risk 60-74 years 1-dose series) RSV High Risk: (Elderly (60+) or Population) (1 - Risk 60-74 years 1-dose series) [facility] Start: 2022 RSV patients and/or patients aged 60+ years (1 - 1-dose 60+ series) RSV patients and/or patients aged 60+ years (1 - 1-dose 60+ series) [facility] Start: 2022 RSV Vaccine (1 - 1-dose 60+ series) RSV Vaccine (1 - 1-dose 60+ series) [facility] Start: 10-30-2022 End: 10-30-2022 CBC W Auto Differential panel - Blood CBC + DIFF Lab Routine 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) Lung nodules Malignant neoplasm of head, face and neck (HCC) Expected: 10/30/2022 (Approximate), Expires: 10/30/2022 [facility] Work Phone: Comment on above: Expected: 10/30/2022 (Approximate), Expi res: 10/30/2022 Start: 10-30-2022 End: 10-30-2022 Comprehensive metabolic 2000 panel - Serum or Plasma COMP METABOLIC PANEL Lab Routine 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) Lung nodules Malignant neoplasm of head, face and neck (HCC) Expected: 10/30/2022 (Approximate), Expires: 10/30/2022 [facility] Work Phone: Comment on above: Expected: 10/30/2022 (Approximate), Expi res: 10/30/2022 Start: 10-30-2022 End: 11-29-2022 Ct soft tissue neck w/contrast material CT NECK SOFT TISSUE W IVCON Radiology Routine Malignant neoplasm of head, face and neck (HCC) Expected: 10/30/2022 (Approximate), Expires: 11/29/2022 [facility] Work Phone: Comment on above: Expected: 10/30/2022 (Approximate), Expi res: 11/29/2022 Start: 10-30-2022 End: 11-29-2022 Ct thorax w/contrast material CT CHEST W IVCON Radiology Routine Lung nodules Expected: 10/30/2022 (Approximate), Expires: 11/29/2022 [facility] Work Phone: Comment on above: Expected: 10/30/2022 (Approximate), Expi res: 11/29/2022 Start: 10-13-2022 Adult depression screening assessment DEPRESSION SCREENING [facility] Start: 07-17-2022 Aerobic Culture Aerobic Culture [facility] Start: 07-17-2022 Anaerobic Culture Anaerobic Culture [facility] Start: 07-17-2022 Microscopic observation [Identifier] in Unspecified specimen by Gram stain [facility] Start: 07-17-2022 Cerebrospinal fluid culture [facility] Start: 07-17-2022 End: 07-17-2022 [facility] Start: 07-17-2022 [facility] Start: 06-18-2022 DEPRESSION ASSESSMENT DEPRESSION ASSESSMENT [facility] Start: 04-16-2022 Plain chest X-ray XR ribs LT min 3V w [id number]* [facility] Start: 04-16-2022 XR Unspecified body region Views [facility] Start: 02-16-2022 Influenza vaccination [facility] Start: 10-14-2021 Adult depression screening assessment DEPRESSION SCREENING [facility] Start: 06-23-2021 COVID-19 VACCINE (3 - Booster for Pfizer series) COVID-19 VACCINE (3 - Booster for Pfizer series) [facility] Start: 06-18-2021 DEPRESSION ASSESSMENT DEPRESSION ASSESSMENT [facility] Start: 03-18-2021 COVID-19 VACCINE (3 - Booster for Pfizer series) COVID-19 VACCINE (3 - Booster for Pfizer series) [facility] Start: 2017 PROSTATE CANCER SCREENING DISCUSSION PROSTATE CANCER SCREENING DISCUSSION [facility] Start: 2017 Prostate specific antigen measurement Prostate Cancer Screening Discussion [facility] Start: 2012 Screening for malignant neoplasm of lung Lung Cancer Screening [facility] Start: 2012 SHINGRIX VACCINE (1 of 2) SHINGRIX VACCINE (1 of 2) [facility] Start: 2012 Zoster Vaccines (1 of 2) Zoster Vaccines (1 of 2) [facility] Start: 11-25-2007 COLOGUARD (FIT-DNA) COLOGUARD (FIT-DNA) [facility] Start: 11-25-2007 Colonoscopy COLONOSCOPY [facility] Start: 11-25-2007 COLORECTAL CANCER SCREENING COLORECTAL CANCER SCREENING [facility] Start: 11-25-[address] COLONOGRAPHY [facility] Start: 11-25-2007 FECAL OCCULT BLOOD FECAL OCCULT BLOOD [facility] Start: 11-25-2007 Screening for malignant neoplasm of colon [facility] Start: 11-25-2007 SIGMOIDOSCOPY SIGMOIDOSCOPY [facility] Start: 1997 Lipid panel Lipid Screening [facility] Start: 1997 LIPID SCREEN LIPID SCREEN [facility] Start: 1981 Hepatitis A Vaccines (1 of 2 - Risk 2-dose series) Hepatitis A Vaccines (1 of 2 - Risk 2-dose series) [facility] Start: 1981 Pneumococcal vaccination Pneumococcal Vaccine (1 of 2 - PCV) [facility] Start: 1981 Urine microalbumin profile DTAP,TDAP,TD (1 - Tdap) [facility] Start: 1980 Anxiety Screening Anxiety Screening [facility] Start: 1980 Depression Screening Depression Screening [facility] Start: 1980 Diabetes mellitus screening Diabetes Screening [facility] Start: 1980 HEPATITIS C SCREENING HEPATITIS C SCREENING [facility] Start: 1980 Hepatitis C screening Hepatitis C Screening [facility] Start: 1980 HIV SCREENING HIV SCREENING [facility] Start: 1980 HIV screening HIV Screening [facility] Start: 1968 Pneumococcal Vaccine: Pediatrics (0 to 5 Years) and At-Risk Patients (6 to 64 Years) (1 of 2 - PCV) Pneumococcal Vaccine: Pediatrics (0 to 5 Years) and At-Risk Patients (6 to 64 Years) (1 of 2 - PCV) [facility] Start: 11-25-1963 MMR Vaccines (1 of 1 - Standard series) MMR Vaccines (1 of 1 - Standard series) [facility] Start: 1962 HIV screening HIV Screening [facility] Start: 1962 Lipid panel Lipid Panel [facility] Start: 1962 Screening for malignant neoplasm of colon [facility] Start: 1962 Screening for osteoporosis Bone Density Scan [facility] Start: 1962 Yearly Adult Physical Yearly Adult Physical [facility] Ankle brachial pressure index [facility] Bacteria identified in Cerebral spinal fluid by Culture CSF CULT + STAIN Microbiology Routine NPH (normal pressure hydrocephalus) ([facility]) Ordered: 09/13/2022 [facility] Work Phone: Comment on above: Ordered: 09/13/2022 Bacteria identified in Unspecified specimen by Aerobe culture [facility] [facility] identified in Unspecified specimen by Anaerobe culture [facility] End: 04-12-2024 Basic metabolic 2000 panel - Serum or Plasma Basic metabolic panel Lab Routine Morning draw (Lab) for 3 Occurrences starting 04/10/2024 until 04/12/2024, 1 completed [facility] Work Phone: Comment on above: Morning draw (Lab) for 3 Occurrences sta rting 04/10/2024 until 04/12/2024, 1 completed End: 04-12-2024 CBC panel - Blood by Automated count CBC Lab Routine Morning draw (Lab) for 3 Occurrences starting 04/10/2024 until 04/12/2024, 1 completed [facility] Work Phone: Comment on above: Morning draw (Lab) for 3 Occurrences sta rting 04/10/2024 until 04/12/2024, 1 completed Cell count panel - C erebral spinal fluid CSF CELL COUNT Lab Routine NPH (normal pressure hydrocephalus) ([facility]) Ordered: 09/13/2022 [facility] Work Phone: Comment on above: Ordered: 09/13/2022 Cell count, cerebros roberto fluid [facility] Comprehensive metabo lic 2000 panel - Serum or Plasma [facility] End: 04-09-2024 Continuous Pulse oximetry, In Phase 1 Continuous Pulse oximetry, In Phase 1 Respiratory Care Routine Continuous until discontinued starting 04/09/2024 [facility] Service Area Work Phone: Comment on above: Continuous until discontinued starting 1 Enolase.neuron speci fic [Mass/volume] in Serum or Plasma by Immunoassay [facility] Fungus identified in Unspecified specimen by Culture [facility] Glucose [Mass/volume ] in Cerebral spinal fluid [facility] Glucose [Mass/volume ] in Serum or Plasma POCT Glucose Point of Care Testing - Docked Device Routine As needed (Lab) until discontinued starting 04/09/2024 [facility] Service Area Work Phone: Comment on above: As needed (Lab) until discontinued start ing 04/09/2024 End: 04-09-2024 Incentive spirometry Instruct Incentive spirometry Instruct Respiratory Care Routine Once for 1 Occurrences starting 04/09/2024 until 04/09/2024 [facility] Work Phone: Comment on above: Once for 1 Occurrences starting 04/09/20 until 04/09/2024 IR LP FOR DRAINAGE (PRESSURE) IR LP FOR DRAINAGE (PRESSURE) Radiology Routine NPH (normal pressure hydrocephalus) (HCC) Ordered: 09/13/2022 [facility] Work Phone: Comment on above: Ordered: 09/13/2022 Meningitis+Encephali tis pathogens DNA and RNA panel - Cerebral spinal fluid by JER with non-probe detection [facility] End: 10-20-2023 Mri brain brain stem w/o w/contrast material MRI BRAIN WO/W IVCON Radiology Routine 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HCC) 1 Occurrences starting 09/20/2022 until 10/20/2023 [facility] Work Phone: Comment on above: 1 Occurrences starting 09/20/2022 until 10/20/2023 Patient Education [facility] Work Phone: Patient referral [facility] Work Phone: Protein [Mass/volume ] in Cerebral spinal fluid [facility] End: 04-09-2024 Urethral Catheter Removal Urethral Catheter Removal Procedures Routine Once for 1 Occurrences starting 04/09/2024 until 04/09/2024 [facility] Work Phone: Comment on above: Once for 1 Occurrences starting 04/09/20 until 04/09/2024 Virus identified in Unspecified specimen by Culture [facility] End: 02-13-2024 XR Cervical spine 6 Views [facility] Service A hermila Work Phone: Comment on above: Once for 1 Occurrences starting 02/13/20 until 02/13/2024 XR Chest 2 Views XR chest 2 view s Imaging Routine Cervical radiculopathy Senile osteoporosis 02/13/2024 11:10 AM EDT [facility] Work Phone: [facility] Immunizations Immunization Date Immunization Notes Care Provider Fa cility 01-21-2021 COVID-19 Vaccine Pfi zer - Documentation Purposes Only Griselda Kuns Other [facility] 12-30-2020 COVID-19 Vaccine Pfi zer - Documentation Purposes Only Griselda Kuns Other [facility] 01-24-2016 KENALOG - 10 mg Griselda Kuns Other [facility] Other 01-27-2015 Toradol per 15 mg Griselda Kuns Other [facility] Other 03-15-2014 tetanus toxoid, redu julienne diphtheria toxoid, and acellular pertussis vaccine, adsorbed Griselda Kuns Other [facility] Other Payers Date Payer Category Payer Medicare [id number] 2024 Medicare [id number] 2023 Self-pay [id number] 2023 Managed Care (Private) [facility] [id number] 2022 Private Health Insurance [id number] [id number] 2021 Private Health Insurance [facility] [employer] [id number] 2021-Present [phone] [address] [place] [address] PPO [id number]. [id number] 2019 Medicaid [employer] [id number] 2019-Present [phone] [address] [place] [address] Medicaid [id number] 2019 Medicaid [id number] [id number]. [id number] 2019 Private Health Insurance 1.2 .[id number]. [id number] 2019 Unknown [id number] 2019 Unknown 2019 Unknown [id number] 2.16.840.1.106747.19 1962 Unknown [id number] 2.16.840.1.856595.3.579.2. 693 1962 Unknown [id number] 2.16.840.1.790785.3.579.2. 182 1962 Unknown [id number] 2.16.840.1.634559.3.579.2. 182 1962 Unknown [id number] 2.16.840.1.374579.3.579.2. 196 1962 Unknown [id number] 2.16.840.1.267447.3.579.2. 1962 Unknown [id number] 2.16.840.1.595140.3.579.2. 1962 Unknown [id number] 2.16.840.1.282690.3.579.2. 1962 Unknown [id number] 2.16.840.1.979693.3.579.2. 1962 Unknown [id number] 2.16.840.1.704804.3.579.2. 1962 Unknown [id number] 2.16.840.1.988670.3.579.2. 1962 Unknown [id number] 2.16.840.1.608870.3.579.2. 1245 1962 Unknown [id number] 2.16.840.1.740279.3.579.2. 1245 1962 Unknown [id number] 2.16.840.1.167111.3.579.2. 1245 1962 Unknown [id number] 2.16.840.1.619260.3.579.2. 1243 1962 Unknown [id number] 2.16.840.1.202714.3.579.2. 1243 1962 Unknown [id number] 2.16.840.1.266315.3.579.2. 1243 1962 Unknown [id number] 2.16.840.1.717889.3.579.2. 1243 1962 Unknown [id number] 2.16.840.1.998496.3.579.2. 9 1962 Unknown [id number] 2.16.840.1.912562.3.579.2. 1259 1962 Unknown [id number] 2.16.840.1.814761.3.579.2. 1259 1962 Unknown [id number] 2.16.840.1.386381.3.579.2. 1258 1962 Unknown [id number] 2.16.840.1.220700.3.579.2. 1258 1962 Unknown [id number] 2.16.840.1.935788.3.579.2. 1258 1962 Unknown [id number] 2.16.840.1.200001.3.579.2. 1258 1962 Unknown [id number] 2.16.840.1.320928.3.579.2. 1258 1962 Unknown [id number] 2.16.840.1.747199.3.579.2. 1258 1962 Unknown [id number] 2.16.840.1.675980.3.579.2. 1258 1962 Unknown [id number] 2.16.840.1.179380.3.579.2. 1258 1962 Unknown [id number] 2.16.840.1.179570.3.579.2. 1258 1962 Unknown [id number] 2.16.840.1.744580.3.579.2. 1258 1962 Unknown [id number] 2.16.840.1.939363.3.579.2. 1258 1962 Unknown [id number] 2.16.840.1.471369.3.579.2. 1258 1962 Unknown [id number] 2.16.840.1.543898.3.579.2. 1258 1962 Unknown [id number] 2.16.840.1.181960.3.579.2. 1244 1962 Unknown [id number] 2.16.840.1.885813.3.579.2. 1244 1962 Unknown [id number] 2.16.840.1.863641.3.579.2. 1244 1962 Unknown [id number] 2.16.840.1.603578.3.579.2. 1244 1962 Unknown [id number] 2.16.840.1.221625.3.579.2. 1244 1962 Unknown [id number] 2.16.840.1.259226.3.579.2. 1244 1962 Unknown [id number] 2.16.840.1.265561.3.579.2. 1244 1962 Unknown [id number] 2.16.840.1.915586.3.579.2. 1244 1962 Unknown [id number] 2.16.840.1.761765.3.579.2. 1244 1962 Unknown [id number] 2.840.1.513849.3.579.2. 1244 1962 Unknown [id number] 2.16840.1.308027.3.579.2. 1244 1962 Unknown [id number] 2.16.840.1.328690.3.579.2. 1245 Private Health Insurance [id number] Unknown [id number] Unknown [id number] 2.16840.1.566571.3.579.2. 531 Unknown [id number] 2.16840.1.926802.3.579.2. 531 Unknown [id number] 2.16840.1.999804.3.579.2. 531 Social History Date Type Detail Facility Start: 04-29-2018 End: 04-28-2024 Tobacco smoking status MEIS Smoker (finding) [facility] Start: 1960 Sex Assigned At Male F [facility] Start: 10-16-2019 Tobacco smoking status MEIS Ex-smoker [facility] Start: 06-18-1973 History of tobacco use Cigarette Smoker [facility] Start: 10-16-2019 End: 07-02-2024 Cigarettes smoked current (pack per day) - Reported 1.5 [facility] Start: 10-16-2019 End: 01-02-2024 Tobacco use and exposure Smokeless tobacco non-user [facility] Start: 10-14-2020 End: 07-02-2024 Alcohol intake Ex-drinker (finding) [facility] Start: 01-20-2019 History SDOH Alcohol Comment quit 2002 [facility] Start: 10-16-2019 Tobacco Comment quit smoking 01/2019 [facility] Start: 1960 Sex Assigned At Not on file C [facility] Start: 10-03-2021 End: 06-30-2024 Exposure to SARS-CoV-2 (event) Not sure [facility] Start: 07-03-2023 End: 07-02-2024 Sex Assigned At [facility] Start: 03-10-2022 End: 03-20-2022 Exposure to SARS-CoV-2 (event) Unable to assess [facility] Work Phone: Start: 12-28-2022 End: 01-02-2024 Daily Smoker [facility] Start: 03-13-2023 Tobacco Comment 6-10 cigarettes/day [facility] Start: 09-20-2022 Gender identity Identifies as male gender (finding) [facility] Start: 09-20-2022 Sexual orientation Heterosexual (fin ding) [facility] Tobacco smoking status NHIS Tobacco smoking consumption unknown [facility] Work Phone: Start: 10-05-2023 End: 01-03-2024 Alcoholic beverage intake Lifetime non-drinker (finding) [facility] Work Phone: Adult Depression Screening Assessment 2 [facility] How often to you hav e a drink containing alcohol? Never [facility] In the past 12 months, was there a time when you were not able to pay the mortgage or rent on time? No [facility] Work Phone: Start: 04-28-2024 End: 07-03-2024 Sex Male (finding) [facility] NEGATED: Highlighted rowStart: DAVEF History of tobacco use Passive smoker [facility] Work Phone: Medical Equipment Procedure Code Equipment Code Equipment Origin al Text Equipment Identifier Dates Angiogram, lower extremity, left Multiple peripheral artery stent, bare-metal [id number] Start: 05-07-2023 Allograft, [employer] Lordotic 6 X 11 X 14 - [id number] - [id number] Start: 04-09-2024 Allograft, [employer] 6 X 11 X 14 - [id number] - [id number] Start: 04-09-2024 Plate, Acp, 1.6v , 2 Level, 34mm - [id number] Start: 04-09-2024 Screw, Acp, Self Drill, 3.5 X 17mm, Variable - [id number] Start: 04-09-2024 3.5 X 19mm Screw [id number] Start: 04-09-2024 Comment on above: Description: per juan carlos peterson jdr 04/10 Goals Date Patient Goal Desired Activity /State Personal health goal Clinical Notes 11-03-2008 to 07-02-2024 Elvi Cadena MD - 07/02/2024 2:00 PM Anthony Harris MD - 06/30/2024 9:00 AM Rafa Cadena MD - 05/21/2024 2:00 PM Deni Narayanan PA-C - 04/30/2024 1:00 PM EST Note Date & Type Note Facility 07-02-2024 History of Present illness Narrative Images from the original note were not included. CHIEF COMPLAINT REASON FOR VISIT : Injections HPI: Jovani Melendez is a 63 y.o. male who presents for bilateral brachial injections. States his pain is the same if not worse than before surgery. CURRENT MEDICATIONS: ALLERGIES/DISCONTINUE MEDICATIONS Current Outpatient Medications Medication Instructions albuterol HFA 90 mcg/act inhaler 2 puffs, Every 4 hours PRN amLODIPine (Norvasc) 5 MG tablet 1 tablet, Oral, Daily ASPIRIN 81 PO Aspir-81 Botox 200u vial IJ Soln 200 units injection Inject 400 units into neck muscles every 90 days Brexpiprazole 1 MG tablet Daily busPIRone (Buspar) 5 MG tablet TAKE 1 TABLET BY MOUTH EVERY MORNING , TAKE ONE TABLET BY MOUTH EVERY EVENING , AND 1 TABLET BEFORE BEDTIME citalopram (CeleXA) 20 MG tablet citalopram 20 mg tablet clopidogrel (PLAVIX) 75 mg, Oral, Daily clotrimazole-betamethasone (Lotrisone) cream dexAMETHasone (Decadron) 2 MG tablet 2mg 3 pills po X3 days,2 pills po daily X3 days , then 1 pill po daily X3 days then stop 9 days 18 pills ezetimibe (ZETIA) 10 mg, Oral, Daily HYDROcodone-acetaminophen (Calvin) 5-325 MG tablet take 1 tablet orally daily NEEDED FOR PAIN MUST LAST 30 DAYS hydrOXYzine HCl (Atarax) 25 MG tablet hydroxyzine HCl 25 mg tablet take 1 to 2 tablets by mouth at bedtime if needed ibuprofen 600 MG tablet ibuprofen 600 mg tablet take 1 tablet by mouth every 8 hours NEEDED FOR PAIN lisinopril 5 mg, Oral, Daily methocarbamol (Robaxin) 500 MG tablet methocarbamol (ROBAXIN) 750 mg, Oral, 4 times daily mirtazapine (Remeron) 15 MG tablet mirtazapine 15 mg tablet take 1/2 tablet by mouth at bedtime Multiple Vitamin (MULTIVITAMIN ADULT PO) 1 capsule, Oral, Daily RT nicotine (Nicoderm CQ) 21 MG/24HR patch 1 patch, Transdermal, Every 24 hours, Apply 21 mg daily x 6 weeks then apply 14 mg patch daily x 2 weeks then apply 7 mg patch daily x 2 weeks, stop cigarette use at treatment onset pravastatin (PRAVACHOL) 40 mg, Oral, Nightly pregabalin (LYRICA) 50 mg, 2 times daily rosuvastatin (CRESTOR) 5 mg, Oral, Daily terbinafine (LamISIL AT) 1 % cream Apply to the affected area on the hand, bid, 30 day supply tiZANidine (Zanaflex) 4 MG capsule tizanidine 4 mg capsule take 1 capsule by mouth twice a day if needed for MUSCLE SPASTICITY Allergies Allergen Reactions Cephalexin Hives Other Reaction(s): hives, Unknown There are no discontinued medications. 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 Social History Tobacco Use Smoking status: Every Day Current packs/day: 0.50 Types: Cigarettes Smokeless tobacco: Never Tobacco comments: 6-10 cigarettes/day Vaping Use Vaping status: Never Used Substance Use Topics Alcohol use: Not Currently Drug use: Never Family History Problem Relation Name Age of Onset Hypertension Mother Stroke Father Cancer Father Depression: Not at risk (06/30/2024) Received from [facility] PHQ-2 Patient Health Questionnaire-2 Score: 2 REVIEW OF SYMPTOMS: Review of Systems OBJECTIVE: 07/02/2024 2:18 PM 05/21/2024 2:04 PM 01/17/2024 12:57 PM Vitals BMI 28.28 kg/m2 26.46 kg/m2 27.06 kg/m2 BSA (m2) 2.01 m2 1.95 m2 1.97 m2 Systolic 143 120 132 Diastolic 77 82 72 Heart Rate 86 Height (in) 5' 8 Weight (lb) 186 174 178 EXAM: Neurological Exam PROCEDURE: Brachial Plexus injection After explaining the risks, complications, and benefits of the procedure, the patient was seated in the chair. Allergies were reviewed, the consent was signed. The bilateral region posterior to the clavicle is identified and the most tender area is marked for injection then cleaned using sterile technique, and surface anesthetic; a 25 gauge 1 2 spinal needle was advanced and the patient received 1 cc of Bupivacaine 0.5% and 1 cc Dexamethasone 4mg. The needle was removed. The patient tolerated the procedure well and without complications. A Band-Aid dressing was applied on the injection site. Ultrasound images were placed in the media folder. ASSESSMENT AND PLAN: Diagnoses and all orders for this visit: Nerve root and plexus disorder, unspecified - bupivacaine (Marcaine) 0.5 % injection 5 mg - dexAMETHasone sod phos (Decadron) injection 4 mg 1. Nerve root and plexus disorder, unspecified (Primary) - bupivacaine (Marcaine) 0.5 % injection 5 mg - dexAMETHasone sod phos (Decadron) injection 4 mg I will bring him back in 6-8 weeks to see if he has received 50% or greater pain relief and if he did, I can repeat the injections at that time. documented in this encounter [facility] 06-30-2024 History of Present illness Narrative Jovani Melendez is a 63 y.o. year old male s/p C5-7 ACDF on April 09, 2024. Here for his post op visit. Past Surgical History: Procedure Laterality Date OTHER SURGICAL HISTORY right neck dissection SKIN CANCER EXCISION 02/10/2008 TONSILLECTOMY Current Outpatient Medications: albuterol 90 mcg/actuation inhaler, Inhale 2 puffs every 4 hours if needed for wheezing or shortness of breath., Disp: 18 g, Rfl: 11 amLODIPine (Norvasc) 10 mg tablet, Take by mouth once daily., Disp: , Rfl: aspirin 81 mg EC tablet, Take 1 tablet (81 mg) by mouth once daily. Do not fill before April 14, 2024., Disp: , Rfl: busPIRone (Buspar) 5 mg tablet, Take by mouth 2 times a day., Disp: , Rfl: citalopram (CeleXA) 10 mg tablet, Take 1 tablet (10 mg) by mouth once daily., Disp: , Rfl: clopidogrel (Plavix) 75 mg tablet, Take 1 tablet (75 mg) by mouth once daily. Do not fill before April 23, 2024., Disp: , Rfl: cyclobenzaprine (Flexeril) 10 mg tablet, Take 1 tablet (10 mg) by mouth every 8 hours if needed for muscle spasms., Disp: 90 tablet, Rfl: 0 cyclobenzaprine (Flexeril) 10 mg tablet, Take 1 tablet (10 mg) by mouth 3 times a day as needed for muscle spasms for up to 7 days., Disp: 21 tablet, Rfl: 0 lisinopril 10 mg tablet, Take 1 tablet (10 mg) by mouth once daily., Disp: , Rfl: pregabalin (Lyrica) 50 mg capsule, Take 1 capsule (50 mg) by mouth 2 times a day., Disp: 60 capsule, Rfl: 0 Vitals: 06/30/24 0856 BP: 124/70 Pulse: 75 Objective Aox3 PERRL, EOMI 5/5 x 4 Incision well healed Relevant Results Upright xrays with hardware in good position Assessment and Plan: Jovani Melendez is a very nice 63 y.o. year old patient s/p C5-7 ACDF on April 09, 2024 here for a post-op visit. The patient is doing well overall, has improvement of his pain/numbness in his fingers post surgery. His strength is improving. He presents with continuous left shoulder pain and neck pain above the surgery site, unchanged from prior surgery. He tried Gabapentin, but was unable to tolerate side effects. Currently on Robaxin, which seems to help alleviate his symptoms but can not take it for more than 5 days continuously. I recommend Lyrica 50mg, at bedtime. I will also refer him to pain management/ We will see the patient again in 3 months with another set of XR. Camille Harris MD Full Charge Bookkeeper of Neurosurgery [facility] Neuroscience ICU Office: [phone] Scribe Attestation By signing my name below, I, Shira Francy, Amparoibe, attest that this documentation has been prepared under the direction and in the presence of Camille Harris MD. documented in this encounter [facility] Work Phone: 05-21-2024 History of Present illness Narrative Images from the original note were not included. CHIEF COMPLAINT REASON FOR VISIT : Injections HPI: Jovani Melendez is a 63 y.o. male who presents for injections. He states he had surgery about 6 weeks ago on April 09 . He states his pain level is a 8/10. He states his muscle spasms have not quit since his surgery. He states his left side is the worst. But spasms have stopped on the right. No refills. He states he has been put on flexeril and it does not seem to be doing anything for his muscle spasms. CURRENT MEDICATIONS: ALLERGIES/DISCONTINUE MEDICATIONS Current Outpatient Medications Medication Instructions amLODIPine (Norvasc) 5 MG tablet 1 tablet, Oral, Daily ASPIRIN 81 PO Aspir-81 Botox 200u vial IJ Soln 200 units injection Inject 400 units into neck muscles every 90 days Brexpiprazole 1 MG tablet Daily busPIRone (Buspar) 5 MG tablet TAKE 1 TABLET BY MOUTH EVERY MORNING , TAKE ONE TABLET BY MOUTH EVERY EVENING , AND 1 TABLET BEFORE BEDTIME citalopram (CeleXA) 20 MG tablet citalopram 20 mg tablet clopidogrel (PLAVIX) 75 mg, Oral, Daily clotrimazole-betamethasone (Lotrisone) cream dexAMETHasone (Decadron) 2 MG tablet 2mg 3 pills po X3 days,2 pills po daily X3 days , then 1 pill po daily X3 days then stop 9 days 18 pills ezetimibe (ZETIA) 10 mg, Oral, Daily HYDROcodone-acetaminophen (Calvin) 5-325 MG tablet take 1 tablet orally daily NEEDED FOR PAIN MUST LAST 30 DAYS hydrOXYzine HCl (Atarax) 25 MG tablet hydroxyzine HCl 25 mg tablet take 1 to 2 tablets by mouth at bedtime if needed ibuprofen 600 MG tablet ibuprofen 600 mg tablet take 1 tablet by mouth every 8 hours NEEDED FOR PAIN lisinopril 5 mg, Oral, Daily methocarbamol (Robaxin) 500 MG tablet methocarbamol (ROBAXIN) 750 mg, Oral, 4 times daily mirtazapine (Remeron) 15 MG tablet mirtazapine 15 mg tablet take 1/2 tablet by mouth at bedtime Multiple Vitamin (MULTIVITAMIN ADULT PO) 1 capsule, Oral, Daily RT nicotine (Nicoderm CQ) 21 MG/24HR patch 1 patch, Transdermal, Every 24 hours, Apply 21 mg daily x 6 weeks then apply 14 mg patch daily x 2 weeks then apply 7 mg patch daily x 2 weeks, stop cigarette use at treatment onset pravastatin (PRAVACHOL) 40 mg, Oral, Nightly rosuvastatin (CRESTOR) 5 mg, Oral, Daily terbinafine (LamISIL AT) 1 % cream Apply to the affected area on the hand, bid, 30 day supply tiZANidine (Zanaflex) 4 MG capsule tizanidine 4 mg capsule take 1 capsule by mouth twice a day if needed for MUSCLE SPASTICITY Allergies Allergen Reactions Cephalexin Hives Other Reaction(s): hives, Unknown Medications Discontinued During This Encounter Medication Reason dexAMETHasone (Decadron) 2 MG tablet Reorder 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 Social History Tobacco Use Smoking status: Every Day Current packs/day: 0.50 Types: Cigarettes Smokeless tobacco: Never Tobacco comments: 6-10 cigarettes/day Vaping Use Vaping status: Never Used Substance Use Topics Alcohol use: Not Currently Drug use: Never Family History Problem Relation Name Age of Onset Hypertension Mother Stroke Father Cancer Father Depression: Not at risk (04/09/2024) Received from [facility] PHQ-2 Patient Health Questionnaire-2 Score: 0 REVIEW OF SYMPTOMS: Review of Systems OBJECTIVE: 05/21/2024 2:04 PM 01/17/2024 12:57 PM 01/02/2024 2:52 PM Vitals BMI 26.46 kg/m2 27.06 kg/m2 BSA (m2) 1.95 m2 1.97 m2 Systolic 120 132 130 Diastolic 82 72 80 Height (in) 5' 8 Weight (lb) 174 178 Visit Report Report EXAM: Neurological Exam PROCEDURE: Brachial Plexus injection After explaining the risks, complications, and benefits of the procedure, the patient was seated in the chair. Allergies were reviewed, the consent was signed. The bilateral region posterior to the clavicle is identified and the most tender area is marked for injection then cleaned using sterile technique, and surface anesthetic; a 25 gauge 1 1/2 spinal needle was advanced and the patient received 3 cc of Sensorcaine 0.50% and 1 cc Dexamethasone 4mg. The needle was removed. The patient tolerated the procedure well and without complications. A Band-Aid dressing was applied on the injection site. ASSESSMENT AND PLAN: 1. Cervical paraspinal muscle spasm - methocarbamol (Robaxin) 750 MG tablet; Take 1 tablet (750 mg) by mouth in the morning and 1 tablet (750 mg) at noon and 1 tablet (750 mg) in the evening and 1 tablet (750 mg) before bedtime. Dispense: 120 tablet; Refill: 3 2. Cervical stenosis of spinal canal - dexAMETHasone (Decadron) 2 MG tablet; 2mg 3 pills po X3 days,2 pills po daily X3 days , then 1 pill po daily X3 days then stop 9 days 18 pills Dispense: 18 tablet; Refill: 1 3. Other nerve root and plexus disorders (Primary) - bupivacaine (Marcaine) 0.5 % injection 5 mg - dexAMETHasone (Decadron) injection 4 mg I will bring him back in 6-8 weeks to see if he has received 50% or greater pain relief and if he has at that time I can repeat his injections if needed. documented in this encounter [facility] 04-30-2024 History of Present illness Narrative Images from the original note were not included. [facility] Department of Neurological Surgery Post Operative Patient Visit History of Present Illness: Jovani Melendez is a 70 y.o. year old male who presents post C5-[address] Harris on April 09, 2024. Patient has resolution of upper extremity radiculopathy and only continues with mild numbness left fourth digits. Does endorse posterior cervical stiffness and muscle spasm and refill of cyclobenzaprine will be sent to pharmacy. He is decreasing his oxycodone usage though request refill today. After review of OARRS report no red flags identified this sent to pharmacy. Inspection of his incision shows well-approximated, nonerythemic, nonedematous surgical incision with good fibrotic tissue spanning. Referral placed outpatient physical therapy as well as an order for x-rays to be taken just prior to 3-month follow-up with surgeon. systems reviewed and negative other than what is listed in the history of present illness Patient Active Problem List Diagnosis Cervical radiculopathy Senile osteoporosis CAD (coronary artery disease) Peripheral vascular disease ([facility]) Past Medical History: Diagnosis Date Anxiety Cataract s/p excision of left Cervical radiculopathy Chronic pain disorder Coronary artery disease Depression Dysphagia thin liquids Hypertension NPH (normal pressure hydrocephalus) (Multi) PAD (peripheral artery disease) ([facility]) s/p stent (05/2023) on ASA 81mg Peripheral vascular disease (CMS-HCC) Pontine lesion watchful waiting Pulmonary nodule Skin cancer of scalp s/p excsison Spinal stenosis severe cervical stenosis, left sided foraminal stenosis at C5-6 and C6-7 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 Tongue cancer (Multi) s/p resection Vision loss Past Surgical History: Procedure Laterality Date OTHER SURGICAL HISTORY right neck dissection SKIN CANCER EXCISION 02/10/2008 TONSILLECTOMY Social History Tobacco Use Smoking status: Every Day Current packs/day: 0.50 Average packs/day: 0.5 packs/day for 50.9 years (25.4 ttl pk-yrs) Types: Cigarettes Start date: 1973 Passive exposure: Never Smokeless tobacco: Never Substance Use Topics Alcohol use: Not Currently family history includes Heart disease in his mother; Throat cancer in his father; bladder cancer in his father. Current Outpatient Medications: albuterol 90 mcg/actuation inhaler, Inhale 2 puffs every 4 hours if needed for wheezing or shortness of breath., Disp: 18 g, Rfl: 11 amLODIPine (Norvasc) 10 mg tablet, Take by mouth once daily., Disp: , Rfl: aspirin 81 mg EC tablet, Take 1 tablet (81 mg) by mouth once daily. Do not fill before April 14, 2024., Disp: , Rfl: busPIRone (Buspar) 5 mg tablet, Take by mouth 2 times a day., Disp: , Rfl: citalopram (CeleXA) 10 mg tablet, Take 1 tablet (10 mg) by mouth once daily., Disp: , Rfl: clopidogrel (Plavix) 75 mg tablet, Take 1 tablet (75 mg) by mouth once daily. Do not fill before April 23, 2024., Disp: , Rfl: cyclobenzaprine (Flexeril) 10 mg tablet, Take 1 tablet (10 mg) by mouth 3 times a day as needed for muscle spasms for up to 7 days., Disp: 21 tablet, Rfl: 0 cyclobenzaprine (Flexeril) 10 mg tablet, Take 1 tablet (10 mg) by mouth every 8 hours if needed for muscle spasms., Disp: 90 tablet, Rfl: 0 lisinopril 10 mg tablet, Take 1 tablet (10 mg) by mouth once daily., Disp: , Rfl: oxyCODONE-acetaminophen (Percocet) 5-325 mg tablet, Take 1 tablet by mouth every 6 hours if needed for severe pain (7 - 10) (pain) for up to 7 days., Disp: 28 tablet, Rfl: 0 Allergies Allergen Reactions Sandra Chu The above clinical summary has been dictated with voice recognition software. It has not been proofread for grammatical errors, typographical mistakes, or other semantic inconsistencies. Thank you for visiting our office today. It was our pleasure to take part in your healthcare. Do not hesitate to call with any questions regarding your plan of care after leaving at M-F 8am-4pm. To clinicians, thank you very much for this kind referral. It is a privilege to partner with you in the care of your patients. My office would be delighted to assist you with any further consultations or with questions regarding the plan of care outlined. Do not hesitate to call the office or contact me directly. Sincerely, RICH Hernandez PA-C Associate Physician Dining Room Helper, Neurosurgery Clinical Full Charge Bookkeeper [facility] [place] [address] documented in this encounter [facility] Work Phone: 04-28-2024 Evaluation note Diagnosis Onset Date Resolution Cardiac arrhythmia acute Novemb er 2023 9:39am Essential hypertension acute No vember 2023 9:39am Hyperlipidemia acute April 182023 9:39am Glioma of brain deleted April 28, 2024 9:39am PAD (peripheral artery disease) deleted April 28, 024 9:39am Hyperlipidemia acute July 032024 9:23am S/P cervical discectomy acute J anuary 2024 9:23am Screening for prostate cancer acute July 03 9:23am [facility] Work Phone: 1(883) 750-516710-24-2024 Hospital course Narrative* Aaron Gallo PA-C - 04/10/2024 12:32 PM EDT Discharge Diagnosis Cervical radiculopathy Issues Requiring Follow-Up C5-7 ACDF Test Results Pending At Discharge Pending Labs No current pending labs. Hospital Course 63M h/p HTN, CAD, PAD s/p stent on ASA81, pontine glioma, tongue cancer p/w LUE radiculopathy, 04/09 s/p C5-7 ACDF 04/10 PT/OT DC recs no needs, post operative xray shows good position, Drain removed Pertinent Physical Exam At Time of Discharge Physical Exam Awake Oriented x3 BUE 5 BLE 5 Last Recorded Vitals Blood pressure 124/85, pulse 82, temperature 36.3 C (97.3 F), resp. rate 20, height 1.727 m (5' 8 ), weight 80.9 kg (178 lb 5.6 oz), SpO2 95%. Intake/Output last 3 Shifts: I/O last 3 completed shifts: In: 1144.7 (14.1 mL/kg) [P.O.:500; I.V.:644.7 (8 mL/kg)] Out: 1480 (18.3 mL/kg) [Urine:1410 (0.5 mL/kg/hr); Drains:50; Blood:20] Weight: 80.9 kg Home Medications Medication List START taking these medications cyclobenzaprine 10 mg tablet; Commonly known as: Flexeril; Take 1 tablet (10 mg) by mouth 3 times a day as needed for muscle spasms for up to 7 days. oxyCODONE-acetaminophen 5-325 mg tablet; Commonly known as: Percocet; Take 1 tablet by mouth every 6 hours if needed for severe pain (7 - 10) (pain) for up to 7 days. CHANGE how you take these medications albuterol 90 mcg/actuation inhaler; Inhale 2 puffs every 4 hours if needed for wheezing or shortness of breath.; What changed: reasons to take this aspirin 81 mg EC tablet; Take 1 tablet (81 mg) by mouth once daily. Do not fill before April 14, 2024.; Start taking on: April 14, 2024; What changed: These instructions start on April 14, 2024. If you are unsure what to do until then, ask your doctor or other care provider. clopidogrel 75 mg tablet; Commonly known as: Plavix; Take 1 tablet (75 mg) by mouth once daily. Do not fill before April 23, 2024.; Start taking on: April 23, 2024; What changed: how much to take, These instructions start on April 23, 2024. If you are unsure what to do until then, ask your doctor or other care provider. CONTINUE taking these medications amLODIPine 10 mg tablet; Commonly known as: Norvasc busPIRone 5 mg tablet; Commonly known as: Buspar citalopram 10 mg tablet; Commonly known as: CeleXA lisinopril 10 mg tablet STOP taking these medications chlorhexidine 0.12 % solution; Commonly known as: Peridex chlorhexidine 4 % external liquid; Commonly known as: Hibiclens HYDROcodone-acetaminophen 5-325 mg tablet; Commonly known as: Calvin tiZANidine 4 mg capsule; Commonly known as: Zanaflex Outpatient Follow-Up Future Appointments Date Time Provider Department Center 04/30/2024 1:00 PM Solomon Narayanan PA-C [id number] [facility] 05/02/2024 9:00 AM [facility] 05/02/2024 10:00 AM Ignacia Jack MD [id number] [facility] 06/30/2024 9:00 AM Camille Harris MD [id number] [facility] Aaron Gallo PA-C documented in this [facility] Work Phone: [phone] 114-275710-24-2024 History of Present illness Narrative* Nikole Lezama, PharmD - 04/10/2024 12:11 PM EDT Pharmacy Medication History Review Jovani Melendez is a 63 y.o. male admitted for Cervical radiculopathy. Pharmacy reviewed the patient's hifpy-my-iecybbcas medications and allergies for accuracy. Medications ADDED: norco Medications CHANGED: Tizanidine nightly to as needed Medications REMOVED: Diamox Albuterol The list below reflects the updated CARBIDE DIE [employer]KER list. Prior to Admission Medications Prescriptions Last Dose Informant HYDROcodone-acetaminophen (Calvin) 5-325 mg tablet Self Sig: Take 1.5 tablets by mouth 2 times a day as needed for severe pain (7 - 10). Prescription is written as 1.5 tablets daily amLODIPine (Norvasc) 10 mg tablet 04/08/2024 Self Sig: Take by mouth once daily. aspirin 81 mg EC tablet Past Week Self Sig: Take 1 tablet (81 mg) by mouth once daily. busPIRone (Buspar) 5 mg tablet Past Month Self Sig: Take by mouth 2 times a day. Ran out a while ago and has been meaning to get refills Last filled 12/10 for 30 day supply chlorhexidine (Hibiclens) 4 % external liquid 04/09/2024 Self Sig: Use as directed daily preoperatively chlorhexidine (Peridex) 0.12 % solution 04/09/2024 Self Sig: Swish and spit with 15ml of solution the night before and morning of surgery. Do not swallow. citalopram (CeleXA) 10 mg tablet 04/09/2024 Self Sig: Take 1 tablet (10 mg) by mouth once daily. clopidogrel (Plavix) 75 mg tablet Past Week Self Sig: Take by mouth once daily. lisinopril 10 mg tablet 04/08/2024 Self Sig: Take 1 tablet (10 mg) by mouth once daily. tiZANidine (Zanaflex) 4 mg capsule 04/08/2024 Self Sig: Take 1 capsule (4 mg) by mouth as needed at bedtime for muscle spasms. Facility-Administered Medications: None The list below reflects the updated allergy list. Please review each documented allergy for additional clarification and justification. Allergies Reviewed by Nikole Lezama PharmD on 04/10/2024 Severity Reactions Comments Keflet Not Specified Hives Patient accepts M2B at discharge. Sources: Pharmacy dispense history OARRs Report Patient interview (good historian-required some prompting) [facility] medical note 01/29 Additional Comments: none Nikole Lezama PharmD Transitions of Care Pharmacist 04/10/24 Secure Chat preferred If no response call [employer] or [employer] Rec * Tori Johnson, OT - 04/10/2024 11:57 AM EDT Occupational Therapy Evaluation Patient Name: Jovani Melendez Today's Date: 04/10/2024 Room: [address] [place] [address] Time Calculation Start Time: 1019 Stop Time: 1032 Time Calculation (min): 13 min Assessment IP OT Assessment OT Assessment: Pt presents is at PLOF and reports improved overall condition since surgery. Continued skilled OT services not indicated at this time. Prognosis: Excellent Barriers to Discharge: None Evaluation/Treatment Tolerance: Patient tolerated treatment well Medical Staff Made Aware: Yes End of Session Communication: Bedside nurse End of Session Patient Position: Bed, 2 rail up, Alarm off, not on at start of session Plan: Inpatient Plan No Skilled OT: No acute OT goals identified OT Frequency: OT eval only OT Discharge Recommendations: No further acute OT, No OT needed after discharge OT Recommended Transfer Status: Independent OT - OK to Discharge: Yes (when deemed medically appropriate) OT Assessment OT Assessment Results: (No deficits) Prognosis: Excellent Barriers to Discharge: None Evaluation/Treatment Tolerance: Patient tolerated treatment well Medical Staff Made Aware: Yes Strengths: Ability to acquire knowledge, Attitude of self, Capable of completing ADLs semi/independent, Housing layout, Premorbid level of function, Support and attitude of living partners, Support of extended family/friends Barriers to Participation: (none) Subjective Current Problem: 1. Cervical radiculopathy Insert and maintain peripheral IV Saline lock IV Type And Screen lactated Ringer's infusion Place in outpatient/hospital ambulatory surgery Insert and maintain peripheral IV Saline lock IV Type And Screen Place in outpatient/hospital ambulatory surgery Inpatient consult to Respiratory Care Inpatient consult to Respiratory Care DISCONTINUED: vancomycin (Vancocin) 1,500 mg in dextrose 5% IV 500 mL CANCELED: NPO Diet Except: Sips with meds; Effective now CANCELED: Height and weight CANCELED: Full code CANCELED: NPO Diet Except: Sips with meds; Effective now CANCELED: Height and weight CANCELED: Full code 2. Senile osteoporosis Insert and maintain peripheral IV Saline lock IV Type And Screen lactated Ringer's infusion Place in outpatient/hospital ambulatory surgery Insert and maintain peripheral IV Saline lock IV Type And Screen Place in outpatient/hospital ambulatory surgery Inpatient consult to Respiratory Care Inpatient consult to Respiratory Care DISCONTINUED: vancomycin (Vancocin) 1,500 mg in dextrose 5% IV 500 mL CANCELED: NPO Diet Except: Sips with meds; Effective now CANCELED: Height and weight CANCELED: Full code CANCELED: NPO Diet Except: Sips with meds; Effective now CANCELED: Height and weight CANCELED: Full code General: Reason for Referral: This 63 y/o male w/ hx of cervical radiculopathy presents s/p elective C5-7 ACDF 04/09. Past Medical History Relevant to Rehab: Anxiety, depression, NPH, PAD s/p stent 05/2023), PVD, Tongue CA s/p resection, Pontine lesion ( watchful waiting ) Prior to Session Communication: Bedside nurse Patient Position Received: Bed, 2 rail up, Alarm off, not on at start of session Family/Caregiver Present: Yes Caregiver Feedback: Юлия present and engaged General Comment: Pt pleasant, alert and agreeable to OT assessment Precautions: Medical Precautions: Fall precautions Post-Surgical Precautions: Spinal precautions Pain: Pain Assessment Pain Assessment: 0-10 0-10 (Numeric) Pain Score: 0 - No pain Lines/Tubes/Drains: Closed/Suction Drain 1 Neck Bulb 10 Fr. (Active) Number of days: 0 Objective Cognition: Overall Cognitive Status: Within Functional Limits Orientation Level: Oriented X4 Insight: Within function limits Impulsive: Within functional limits Processing Speed: Within funtional limits Home Living: Type of Home: Apartment Lives With: Spouse Home Adaptive Equipment: None Home Layout: One level Home Access: Level entry Bathroom Shower/Tub: Tub/shower unit, Walk-in shower Bathroom Toilet: Standard Bathroom Equipment: Grab bars in shower Prior Function: Level of [place]: Independent with ADLs and functional transfers, Independent with homemaking with ambulation ADL Assistance: Independent Homemaking Assistance: Independent Ambulatory Assistance: Independent 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, 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) Leisure: 2 yo grandson Hand Dominance: Right Prior Function Comments: had neck pain, Left UE pain, blurry vision, balance deficits recently IADL History: Current License: Yes Mode of Transportation: Car ADL: Eating Assistance: Independent Grooming Assistance: Independent Bathing Assistance: Modified independent (Device) (Pt reports prefering baths, EDU on showers for initial post op to prevent breaking spinal precautions) UE Dressing Assistance: Independent LE Dressing Assistance: Independent Toileting Assistance with Device: Independent Activity Tolerance: Endurance: Endurance does not limit participation in activity Balance: Dynamic Sitting Balance Dynamic Sitting-Balance Support: Feet supported Dynamic Sitting-Level of Assistance: Independent Dynamic Standing Balance Dynamic Standing-Balance Support: No upper extremity supported Dynamic Standing-Level of Assistance: Independent Bed Mobility/Transfers: Bed Mobility Bed Mobility: Yes Bed Mobility 1 Bed Mobility 1: Rolling right, Side lying right to sit Level of Assistance 1: Independent Bed Mobility Comments 1: no cues for log roll required Functional Mobility Functional Mobility Performed: Yes Functional Mobility 1 Surface 1: Level tile, Carpet Device 1: No device Assistance 1: Independent Comments 1: max household distance, three laps around unit and Transfers Transfer: Yes Transfer 1 Transfer From 1: Sit to Transfer to 1: Stand Technique 1: Sit to stand, Stand to sit Transfer Device 1: (no AD) Transfer Level of Assistance 1: Independent IADL's: Current License: Yes Mode of Transportation: Car Vision: Vision - Basic Assessment Current Vision: No visual deficits Sensation: Sensation Comment: No apparent deficits Coordination: Movements are Fluid and Coordinated: Yes Hand Function: Hand Function Gross Grasp: Functional Coordination: Functional Extremities: RUE RUE : Within Functional Limits, LUE LUE: Within Functional Limits Outcome Measures: [facility] Daily Activity Putting on and taking off regular lower body clothing: None Bathing (including washing, rinsing, drying): None Putting on and taking off regular upper body clothing: None Toileting, which includes using toilet, bedpan or urinal: None Taking care of personal grooming such as brushing teeth: None Eating Meals: None Daily Activity - Total Score: 24 , OT Adult Other Outcome Measures 4AT: 0 Education Documentation Body Mechanics, taught by Tori Johnson OT at 04/10/2024 11:57 AM. Learner: Significant Other, Patient Readiness: Acceptance Method: Explanation Response: Verbalizes Understanding Precautions, taught by Tori Johnson OT at 04/10/2024 11:57 AM. Learner: Significant Other, Patient Readiness: Acceptance Method: Explanation Response: Verbalizes Understanding ADL Training, taught by Tori Johnson OT at 04/10/2024 11:57 AM. Learner: Significant Other, Patient Readiness: Acceptance Method: Explanation Response: Verbalizes Understanding Education Comments No comments found. 04/10/24 at 11:57 AM TORI JOHNSON OT Rehab Office: [phone] * Tia Caceres, PT - 04/10/2024 10:33 AM EDT Physical Therapy Physical Therapy Evaluation Patient Name: Jovani Melendez Department: [place] [address] Room: [address] [place] [address] Today's Date: 04/10/2024 Time Calculation Start Time: 919 Stop Time: 950 Time Calculation (min): 31 min Assessment/Plan PT Assessment PT Assessment Results: Decreased endurance, Impaired balance, Orthopedic restrictions Rehab Prognosis: Excellent Barriers to Discharge: pending removal of TREMAINE drain Evaluation/Treatment Tolerance: Patient tolerated treatment well Medical Staff Made Aware: Yes Strengths: Ability to acquire knowledge, Attitude of self, Coping skills, Housing layout, Living arrangement secure, Physical health, Premorbid level of function, Support of Caregivers Barriers to Participation: Other (Comment) (none) End of Session Communication: Bedside nurse Assessment Comment: 63 yo male with cervial radiculopathy (Left UE) and senile osteoporosis s/p ACDF C5-C7 with no post op pain/weakness/numbness (in neck or Left UE), mild dyspnea on exertion (is smoker) and subtle balance deficits. Pt will benefit from PT during stay, no PT needs nor equipment needs upon DC. End of Session Patient Position: Bed, 2 rail up, Alarm off, not on at start of session IP OR SWING BED PT PLAN Inpatient or Swing Bed: Inpatient PT Plan Treatment/Interventions: Bed mobility, Transfer training, Gait training, Stair training, Balance training, Neuromuscular re-education, Endurance training, Therapeutic exercise, Therapeutic activity, Home exercise program, Postural re-education PT Plan: Ongoing PT PT Frequency: Daily PT Discharge Recommendations: No PT needed after discharge Equipment Recommended upon Discharge: (no PT equipment needs) PT Recommended Transfer Status: Stand by assist (no device) PT - OK to Discharge: Yes (PT eval completed & DC recs made) Subjective General Visit Information: General Reason for Referral: Admitted 04/09 for surgery due to persistent neck pain and UE radiculopathy; dx: cervical radiculopathy, senile osteoporosis; 04/09 s/p Fusion Spine Anterior Cervical and Discectomy C5-6, C6-7 Past Medical History Relevant to Rehab: spinal stenosis with left sided foraminal stenosis at C5-6 and C6-7 with radiculopathy, anxiety, cataracts, depression, CAD, dysphagia, HTN, NPH, pAD, PVD, pontine glioma, pulmonary nodule, squamous cell cancer of skin of nose, tongue cancer Missed Visit: No Family/Caregiver Present: Yes Caregiver Feedback: Юлия present and engaged Prior to Session Communication: Bedside nurse, Physician Patient Position Received: Bed, 2 rail up, Alarm off, not on at start of session Preferred Learning Style: verbal General Comment: Pt alert and engaged, mobilizing well as noted, no reports of pain nor numbness inLeft UE today. He hopes to go home today and excited that he is feeling better. he has been on disability for 2.5 years and wants to be able to get back to work. He reports that pre-op he had changesin balance and vision and his Left ear. Pt is a smoker, trying to quit. Reports premorbid hx of dysp hagia with thin liquids, is unsure of cause and has never had a swallow study to his knowledge. Home Living: Home Living Type of Home: Apartment Lives With: Spouse (able to assist as needed) Home Adaptive Equipment: None Home Layout: One level Home Access: Level entry Bathroom Shower/Tub: (has both tub shower (he bathes here) and WIS) Bathroom Toilet: Standard Bathroom Equipment: Grab bars in shower (in both shower) Bathroom Accessibility: on 1st floor Prior Level of Function: Prior Function Per Pt/Caregiver Report Level of [place]: (independent ambulation in/outdoors no device, independent stairclimbing as needed, no falls) ADL Assistance: Independent Homemaking Assistance: Independent Ambulatory Assistance: Independent 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 House) Vital Signs (Past 2hrs) Date/Time Vitals Session Patient Position Pulse Resp SpO2 BP MAP (mmHg) 04/10/24 0920 Post PT Sitting 94 -- 93 % 133/72 -- Vital Signs Comment: post gait/stairs Objective Pain: Pain Assessment Pain Assessment: 0-10 0-10 (Numeric) Pain Score: 0 - No pain Response to Interventions: N/A Cognition: Cognition Overall Cognitive Status: Within Functional Limits Orientation Level: Oriented X4 Processing Speed: Within funtional limits General Assessments: Activity Tolerance Endurance: Endurance does not limit participation in activity Sensation Light Touch: (grossly intact) Coordination Movements are Fluid and Coordinated: Yes (bilateral UEs (opposition, FTN) and LEs (toe tapping, HTS) are WFL) Postural Control Postural Control: Within Functional Limits Static Sitting Balance Static Sitting-Balance Support: Feet supported, No upper extremity supported Static Sitting-Level of Assistance: Independent Dynamic Sitting Balance Dynamic Sitting-Balance Support: Feet supported, No upper extremity supported Dynamic Sitting-Level of Assistance: Independent Dynamic Sitting-Balance: Reaching for objects Static Standing Balance Static Standing-Balance Support: No upper extremity supported (no device) Static Standing-Level of Assistance: Independent Dynamic Standing Balance Dynamic Standing-Balance Support: No upper extremity supported (no device) Dynamic Standing-Level of Assistance: Close supervision Dynamic Standing-Balance: (gait including turns, stairclimbing) Functional Assessments: ADL ADL's Addressed: No Bed Mobility Bed Mobility: Yes Bed Mobility 1 Bed Mobility 1: Rolling right Level of Assistance 1: Independent, Minimal verbal cues Bed Mobility Comments 1: cues for logrolling/education, use of rail Bed Mobility 2 Bed Mobility 2: Side lying right to sit Level of Assistance 2: Independent, Minimal verbal cues Transfers Transfer: Yes Transfer 1 Transfer From 1: Sit to, Stand to Transfer to 1: Sit, Stand Technique 1: Sit to stand, Stand to sit Transfer Device 1: (no device) Transfer Level of Assistance 1: Independent Ambulation/Gait Training Ambulation/Gait Training Performed: Yes Ambulation/Gait Training 1 Surface 1: Level tile Device 1: No device Assistance 1: Close supervision Quality of Gait 1: (mild dyspnea; no noted gait deviations) Comments/Distance (ft) 1: 250 Stairs Stairs: Yes (up/down 4 steps with 1 rail reciprocally with supevision; no LOB) Extremity/Trunk Assessments: RUE RUE : (AROM grossly: hand, elbow flex/ext & shoulder elevation WFL; strength: grasp 5/5, elbow flex/ext and shoulder elevation >3 (not resisted due to spine precautions)) LUE LUE: (AROM grossly: hand, elbow flex/ext & shoulder elevation WFL; strength: grasp 5/5, elbow flex/ext and shoulder elevation >3 (not resisted due to spine precautions)) RLE RLE : (AROM grossly: ankle DF, knee flex/ext and hip flexion WFL; strength grossly: ankle DF 5/5, knee flex/ext 5, hip flexion >3 (not resisted)) LLE LLE : (AROM grossly: ankle DF, knee flex/ext and hip flexion WFL; strength grossly: ankle DF 5/5, knee flex/ext 5, hip flexion >3 (not resisted)) Outcome Measures: [facility] Basic Mobility Turning from your back to your side while in a flat bed without using bedrails: None Moving from lying on your back to sitting on the side of a flat bed without using bedrails: A little Moving to and from bed to chair (including a wheelchair): A little Standing up from a chair using your arms (e.g. wheelchair or bedside chair): A little To walk in hospital room: A little Climbing 3-5 steps with railing: A little Basic Mobility - Total Score: 19 Encounter Problems Encounter Problems (Active) General Goals Pt will state [place]bot spine precautions independently and follow them 100% of session without cues (Progressing) Start: 04/10/24 Expected End: 04/24/24 Pt will be independent with HEP (spine precautions) (Not Progressing) Start: 04/10/24 Expected End: 04/24/24 Mobility Pt will come supine to/from sit via logrolling (HOB flat, no rail) and to standing independently (Progressing) Start: 04/10/24 Expected End: 04/24/24 Pt will come sit to/from stand and bed to/from chair without device independently (Progressing) Start: 04/10/24 Expected End: 04/24/24 Mobility Pt will ambulate 1000' no device at gait speed >1.0 meters/second and up/down 4 steps reciprocally with 1 rail modified independent (Progressing) Start: 04/10/24 Expected End: 04/24/24 Education Documentation Precautions, taught by Tia Caceres PT at 04/10/2024 9:56 AM. Learner: Significant Other, Patient Readiness: Eager Method: Explanation, Demonstration, Teach-back Response: Needs Reinforcement, Demonstrated Understanding, Verbalizes Understanding Comment: PT purpose/POC, logrolling, spine precautions (BLT, no lift >10#), safe gait/stairclimbing, no PT needs upon DC, vitals Body Mechanics, taught by Tia Caceres PT at 04/10/2024 9:56 AM. Learner: Significant Other, Patient Readiness: Eager Method: Explanation, Demonstration, Teach-back Response: Needs Reinforcement, Demonstrated Understanding, Verbalizes Understanding Comment: PT purpose/POC, logrolling, spine precautions (BLT, no lift >10#), safe gait/stairclimbing, no PT needs upon DC, vitals Mobility Training, taught by Tia Caceres PT at 04/10/2024 9:56 AM. Learner: Significant Other, Patient Readiness: Eager Method: Explanation, Demonstration, Teach-back Response: Needs Reinforcement, Demonstrated Understanding, Verbalizes Understanding Comment: PT purpose/POC, logrolling, spine precautions (BLT, no lift >10#), safe gait/stairclimbing, no PT needs upon DC, vitals Education Comments No comments found. * Nate Alvarez MD - 04/10/2024 8:32 AM EDT Jovani Melendez is a 63 y.o. male on day 1 of admission presenting with Cervical radiculopathy. Subjective Radiculopathy pain is gone in arm, only slight neck pain remains, no acute events overnight Objective Physical Exam Awake Oriented x3 BUE 5 BLE 5 Last Recorded Vitals Blood pressure 124/85, pulse 82, temperature 36.3 C (97.3 F), resp. rate 20, height 1.727 m (5' 8 ), weight 80.9 kg (178 lb 5.6 oz), SpO2 95%. Intake/Output last 3 Shifts: I/O last 3 completed shifts: In: 1144.7 (14.1 mL/kg) [P.O.:500; I.V.:644.7 (8 mL/kg)] Out: 1480 (18.3 mL/kg) [Urine:1410 (0.5 mL/kg/hr); Drains:50; Blood:20] Weight: 80.9 kg Assessment/Plan Principal Problem: Cervical radiculopathy Active Problems: Senile osteoporosis 63M h/p HTN, CAD, PAD s/p stent on ASA81, pontine glioma, tongue cancer p/w LUE radiculopathy, 04/09 s/p C5-7 ACDF Plan - floor Drain ASA POD5 uprights today PTOT Nate Alvarez MD Cosigned by Camille Harris MD at 04/10/2024 12:31 PM EDT Associated attestation - Camille Harris MD - 04/10/2024 12:31 PM EDT I reviewed the resident/fellow's documentation and discussed the patient with the resident/fellow. I agree with the resident/fellow's medical decision making as documented in the note. [facility] Work Phone: 1(828) 244-434210-23-2024 Plan of care note* Care Plan - Elizabeth Esposito RN - 04/09/2024 9:57 PM EDT Problem: Skin Goal: Decreased wound size/increased tissue granulation at next dressing change Outcome: Progressing Goal: Participates in plan/prevention/treatment measures Outcome: Progressing Goal: Prevent/manage excess moisture Outcome: Progressing Goal: Prevent/minimize sheer/friction injuries Outcome: Progressing Goal: Promote/optimize nutrition Outcome: Progressing Goal: Promote skin healing Outcome: Progressing The patient's goals for the shift include pain management. The clinical goals for the shift include pain management. [facility] Work Phone: 1(867) 982-446010-23-2024 Miscellaneous Notes* Care Plan - Elizabeth Esposito RN - 04/09/2024 9:57 PM EDT Problem: Skin Goal: Decreased wound size/increased tissue granulation at next dressing change Outcome: Progressing Goal: Participates in plan/prevention/treatment measures Outcome: Progressing Goal: Prevent/manage excess moisture Outcome: Progressing Goal: Prevent/minimize sheer/friction injuries Outcome: Progressing Goal: Promote/optimize nutrition Outcome: Progressing Goal: Promote skin healing Outcome: Progressing The patient's goals for the shift include pain management. The clinical goals for the shift include pain management. * Hospital Course - Aaron Gallo PA-C - 04/09/2024 5:04 PM EDT 63M h/p HTN, CAD, PAD s/p stent on ASA81, pontine glioma, tongue cancer p/w LUE radiculopathy, 04/09 s/p C5-7 ACDF 04/10 PT/OT DC recs no needs, post operative xray shows good position, Drain removed * Op Note - Chicho Bryan MD - 04/09/2024 2:30 PM EDT Fusion Spine Anterior Cervical and Discectomy C5-6, C6-7 (B) Operative Note Date: 04/09/2024 OR Location: [facility] OR Name: Jovani Melendez, : 1960, Age: 63 y.o., , Sex: male Diagnosis Pre-op Diagnosis * Cervical radiculopathy [M54.12] * Senile osteoporosis [M81.0] Post-op Diagnosis * Cervical radiculopathy [M54.12] * Senile osteoporosis [M81.0] Procedures Fusion Spine Anterior Cervical and Discectomy C5-6, C6-7 25127 - MN ARTHRD ANT INTERBODY DECOMPRESS CERVICAL BELW C2 MN ARTHRD ANT INTERBODY DECOMPRESS CERVICAL BELW C2 [64702] MN ARTHRD ANT INTERDY CERVCL BELW C2 EA ADDL NTRSPC [15617] MN ALLOGRAFT FOR SPINE SURGERY ONLY STRUCTURAL [] MN MICROSURG TQS REQ USE OPERATING MICROSCOPE [64022] Surgeons * Camille Harris - Primary Resident/Fellow/Other Dining Room Helper: Surgeons and Role: * Chicho Bryan MD - Resident - Assisting * Rojas Edwards MD - Resident - Assisting Procedure Summary Anesthesia: General ASA: III Anesthesia Staff: Anesthesiologist: Fred Cheek MD C-AA: NAVEEN Bear Capp; NAVEEN Reddy IVONE: Jamee Woodall Estimated Blood Loss: 50 mL Intra-op Medications: Administrations occurring from 1310 to 1750 on 04/09/24: Medication Name Total Dose lidocaine-epinephrine (Xylocaine W/EPI) 0.5 %-1:200,000 injection 6 mL thrombin-recombinant (Recothrom) 5,000 unit topical solution 10,000 Units sodium chloride 0.9 % irrigation solution 1,000 mL polymyxin B 500,000 Units in sodium chloride 0.9 % 1,000 mL irrigation Cannot be calculated acetaminophen (Tylenol) tablet 975 mg dexAMETHasone (Decadron) injection 4 mg/mL 4 mg ePHEDrine injection 10 mg esmolol 10 mg/mL 80 mg fentaNYL (Sublimaze) injection 50 mcg/mL 100 mcg HYDROmorphone (Dilaudid) injection 1 mg/mL 0.2 mg lactated Ringer's infusion Cannot be calculated lidocaine (Xylocaine) injection 2 % 100 mg magnesium sulfate 50 % injection 2 g methadone (Dolophine) tablet 20 mg ondansetron (Zofran) 2 mg/mL injection 4 mg phenylephrine 40 mcg/mL syringe 10 mL 360 mcg propofol (Diprivan) injection 10 mg/mL 200 mg rocuronium (ZeMuron) 50 mg/5 mL injection 100 mg vancomycin 1 g 1 g Anesthesia Record Intraprocedure I/O Totals Output Urine 85 mL Total Output 85 mL Specimen: No specimens collected Staff: Front Attendant: Derrell Scrub Person: Beverly Scrub Person: Shaina Drains and/or Catheters: Closed/Suction Drain 1 Neck Bulb 10 Fr. (Active) Urethral Catheter Double-lumen;Non-latex 16 Fr. (Active) Tourniquet Times: Implants: Implants Type Name Action Serial No. Spinal Hardware SCREW, DISTRACTION, 14 MM - [id number] Used, Not Implanted Spinal Hardware ALLOGRAFT, TRIAD LORDOTIC 6 X 11 X 14 - [id number] - [id number] Implanted [id number] Spinal Hardware ALLOGRAFT, TRIAD LORDOTIC 6 X 11 X 14 - [id number] - [id number] Implanted [id number] Spinal Hardware PLATE, ACP, 1.6V, 2 LEVEL, 34MM - [id number] Implanted Spinal Hardware SCREW, ACP, SELF DRILL, 3.5 X 17MM, VARIABLE - [id number] Implanted 3.5 X 19MM SCREW Implanted Findings: good placement of hardware on fluoro Indications: Jovani Melendez is an 63 y.o. male who is having surgery for Cervical radiculopathy [M54.12] Senile osteoporosis [M81.0]. The patient was seen in the preoperative area. The risks, benefits, complications, treatment options, non-operative alternatives, expected recovery and outcomes were discussed with the patient. The possibilities of reaction to medication, pulmonary aspiration, injury to surrounding structures, bleeding, recurrent infection, the need for additional procedures, failure to diagnose a condition, and creating a complication requiring transfusion or operation were discussed with the patient. The patient concurred with the proposed plan, giving informed consent. The site of surgery was properly noted/marked if necessary per policy. The patient has been actively warmed in preoperative area. Preopera tive antibiotics have been ordered and given within 1 hours of incision. Venous thrombosis prophylaxis have been ordered including bilateral sequential compression devices DESCRIPTION OF THE OPERATION: The patient was brought to the operating room theater. A verbal Huddle was performed confirming thepatient by name, date of , medical record number, site of surgery. After all team members werein agreement, they underwent anesthesia induction without complication. Two large bore IVs were placed as well as endotracheal tube. Perioperative antibiotic administration was confirmed. A horizontal incision from the midline of the trachea over to the medial aspect of the sternocleidomastoid was marked at approximately the C6 vertebral body level and this was confirmed with lateral fluoroscopy.Next, we prepped and draped the neck in a sterile fashion and infiltrated the skin with lidocaine with epinephrine. We then began the procedure by opening the skin with a 15 blade and using combination of Bovie electrocautery and blunt dissection, we exposed the platysma muscle and this was bisected in a horizontal fashion. Staying along the medial aspect of the sternocleidomastoid we used blunt dissection to retract the carotid sheath medially, omohyoid muscle inferiorly, and trachea/esophagus medially exposing the precervical fascia. We then exposed the anterior aspect of the cervical spine with blunt dissection. Using Bovie electrocautery, we reflected the longus colli muscles over the our disc space and used lateral fluoroscopy to confirm our level of interest (C5/6). We then placed our self-retaining retractor in and [place] pins in and placed the disc space under distraction. We then performed an annulotomy with an 11 blade followed by Kerrison rongeurs and curettes. We performed a complete total discectomy under microscopic assistance. After completion of the discectomy, we removed the posterior longitudinal ligament using microsurgical technique with a nerve hook, curettes, and kerrison rongeurs. We then burred out the uncinate processes bilaterally and performed foraminotomies with a Kerrison rongeur. This was confirmed with a large blunt nerve hook bilaterally. FloSeal and bipolar cautery were next used to achieve hemostasis. Contouring and arthrodesis of thedisc space was then finally performed with a high-speed drill. Anterior osteophytes were removed, and a trial was then inserted in the disc space and a 6 mm structural allograft interbody was placed without complication under fluoroscopic guidance. We then turned our attention to C6/7 and performed the same surgical technique for discectomy, foraminotomy, and confirmation of our decompression. Contouring and arthrodesis of the disc space was then finally performed with a high-speed drill. Anterior osteophytes were removed, and a trial was then inserted in the disc space and a 6 mm structural allograft interbody was placed without complication under fluoroscopic guidance at the second level as well. We then used an anterior plate and secured this with 19 mm screws at C5 and C7 and 17 mm at C6 to fixate the spine in place. This was final tightened and secured to the vertebral bodies. Copious amounts of irrigation were used and FloSeal and Bipolar caudery for hemostasis. Final x-rays confirmed accurate placement of all hardware across the C5-7 disc spaces. A subplatysmal drain was placed and secured with a 2-0 silk. The platysma and dermal layers were then approximated with 3-0 Vicryl sutures. Skin was approximated with a Biosyn stitch in a subcuticular fashion followed by Dermabond on theskin. The patient was then extubated and returned to PACU in stable condition. Complications: None; patient tolerated the procedure well. Disposition: PACU - hemodynamically stable. Condition: stable Additional Details: none Attending Attestation: Camille Harris Cosigned by Camille Harris MD at 04/09/2024 4:50 PM EDT documented in this encounterUn[facility] Work Phone: 1(652) 361-523110-23-2024 Nurse Note* Shantelle Pacheco RN - 04/09/2024 7:03 PM EDT Patient transferred from PACU to [id number] via stretcher in stable condition. Patient oriented to room, bed, and call light. Skin assessment witnessed by Brianda Dowling RN. Will continue to monitor. [facility]10-23-2024 Nurse Note* Shantelle Pacheco RN - 04/09/2024 7:03 PM EDT Patient transferred from PACU to [id number] via stretcher in stable condition. Patient oriented to room, bed, and call light. Skin assessment witnessed by Brianda Dowling RN. Will continue to monitor. documented in this encounterUn[facility] Work Phone: 1(508) 831-489510-23-2024 Hospital Note* Hospital Course - Aaron Gallo PA-C - 04/09/2024 5:04 PM EDT 63M h/p HTN, CAD, PAD s/p stent on ASA81, pontine glioma, tongue cancer p/w LUE radiculopathy, 04/09 s/p C5-7 ACDF 04/10 PT/OT DC recs no needs, post operative xray shows good position, Drain removed [facility] Work Phone: 1(193) 707-426210-23-2024 Note* Op Note - Chicho Bryan MD - 04/09/2024 2:30 PM EDT Fusion Spine Anterior Cervical and Discectomy C5-6, C6-7 (B) Operative Note Date: 04/09/2024 OR Location: [facility] OR Name: Jovani Melendez, : 1960, Age: 63 y.o., , Sex: male Diagnosis Pre-op Diagnosis * Cervical radiculopathy [M54.12] * Senile osteoporosis [M81.0] Post-op Diagnosis * Cervical radiculopathy [M54.12] * Senile osteoporosis [M81.0] Procedures Fusion Spine Anterior Cervical and Discectomy C5-6, C6-7 88738 - MN ARTHRD ANT INTERBODY DECOMPRESS CERVICAL BELW C2 MN ARTHRD ANT INTERBODY DECOMPRESS CERVICAL BELW C2 [05277] MN ARTHRD ANT INTERDY CERVCL BELW C2 EA ADDL NTRSPC [30930] MN ALLOGRAFT FOR SPINE SURGERY ONLY STRUCTURAL [54244] [place] MICROSURG TQS REQ USE OPERATING MICROSCOPE [39102] Surgeons * Camille Harris - Primary Resident/Fellow/Other Dining Room Helper: Surgeons and Role: * Chicho Bryan MD - Resident - Assisting * Rojas Edwards MD - Resident - Assisting Procedure Summary Anesthesia: General ASA: III Anesthesia Staff: Anesthesiologist: Fred Cheek MD C-AA: NAVEEN Bear Capp; NAVEEN Reddy IVONE: Jamee Tingler Estimated Blood Loss: 50 mL Intra-op Medications: Administrations occurring from 1310 to 1750 on 04/09/24: Medication Name Total Dose lidocaine-epinephrine (Xylocaine W/EPI) 0.5 %-1:200,000 injection 6 mL thrombin-recombinant (Recothrom) 5,000 unit topical solution 10,000 Units sodium chloride 0.9 % irrigation solution 1,000 mL polymyxin B 500,000 Units in sodium chloride 0.9 % 1,000 mL irrigation Cannot be calculated acetaminophen (Tylenol) tablet 975 mg dexAMETHasone (Decadron) injection 4 mg/mL 4 mg ePHEDrine injection 10 mg esmolol 10 mg/mL 80 mg fentaNYL (Sublimaze) injection 50 mcg/mL 100 mcg HYDROmorphone (Dilaudid) injection 1 mg/mL 0.2 mg lactated Ringer's infusion Cannot be calculated lidocaine (Xylocaine) injection 2 % 100 mg magnesium sulfate 50 % injection 2 g methadone (Dolophine) tablet 20 mg ondansetron (Zofran) 2 mg/mL injection 4 mg phenylephrine 40 mcg/mL syringe 10 mL 360 mcg propofol (Diprivan) injection 10 mg/mL 200 mg rocuronium (ZeMuron) 50 mg/5 mL injection 100 mg vancomycin 1 g 1 g Anesthesia Record Intraprocedure I/O Totals Output Urine 85 mL Total Output 85 mL Specimen: No specimens collected Staff: Front Attendant: Derrell Scrub Person: Beverly Scrub Person: Shaina Drains and/or Catheters: Closed/Suction Drain 1 Neck Bulb 10 Fr. (Active) Urethral Catheter Double-lumen;Non-latex 16 Fr. (Active) Tourniquet Times: Implants: Implants Type Name Action Serial No. Spinal Hardware SCREW, DISTRACTION, 14 MM - [id number] Used, Not Implanted Spinal Hardware ALLOGRAFT, TRIAD LORDOTIC 6 X 11 X 14 - [id number] - [id number] Implanted [id number] Spinal Hardware ALLOGRAFT, TRIAD LORDOTIC 6 X 11 X 14 - [id number] - [id number] Implanted [id number] Spinal Hardware PLATE, ACP, 1.6V, 2 LEVEL, 34MM - [id number] Implanted Spinal Hardware SCREW, ACP, SELF DRILL, 3.5 X 17MM, VARIABLE - [id number] Implanted 3.5 X 19MM SCREW Implanted Findings: good placement of hardware on fluoro Indications: Jovani Melendez is an 63 y.o. male who is having surgery for Cervical radiculopathy [M54.12] Senile osteoporosis [M81.0]. The patient was seen in the preoperative area. The risks, benefits, complications, treatment options, non-operative alternatives, expected recovery and outcomes were discussed with the patient. The possibilities of reaction to medication, pulmonary aspiration, injury to surrounding structures, bleeding, recurrent infection, the need for additional procedures, failure to diagnose a condition, and creating a complication requiring transfusion or operation were discussed with the patient. The patient concurred with the proposed plan, giving informed consent. The site of surgery was properly noted/marked if necessary per policy. The patient has been actively warmed in preoperative area. Preopera tive antibiotics have been ordered and given within 1 hours of incision. Venous thrombosis prophylaxis have been ordered including bilateral sequential compression devices DESCRIPTION OF THE OPERATION: The patient was brought to the operating room theater. A verbal Huddle was performed confirming thepatient by name, date of , medical record number, site of surgery. After all team members werein agreement, they underwent anesthesia induction without complication. Two large bore IVs were placed as well as endotracheal tube. Perioperative antibiotic administration was confirmed. A horizontal incision from the midline of the trachea over to the medial aspect of the sternocleidomastoid was marked at approximately the C6 vertebral body level and this was confirmed with lateral fluoroscopy.Next, we prepped and draped the neck in a sterile fashion and infiltrated the skin with lidocaine with epinephrine. We then began the procedure by opening the skin with a 15 blade and using combination of Bovie electrocautery and blunt dissection, we exposed the platysma muscle and this was bisected in a horizontal fashion. Staying along the medial aspect of the sternocleidomastoid we used blunt dissection to retract the carotid sheath medially, omohyoid muscle inferiorly, and trachea/esophagus medially exposing the precervical fascia. We then exposed the anterior aspect of the cervical spine with blunt dissection. Using Bovie electrocautery, we reflected the longus colli muscles over the our disc space and used lateral fluoroscopy to confirm our level of interest (C5/6). We then placed our self-retaining retractor in and [place] pins in and placed the disc space under distraction. We then performed an annulotomy with an 11 blade followed by [place] rongeurs and curettes. We performed a complete total discectomy under microscopic assistance. After completion of the discectomy, we removed the posterior longitudinal ligament using microsurgical technique with a nerve hook, curettes, and kerrison rongeurs. We then burred out the uncinate processes bilaterally and performed foraminotomies with a Kerrison rongeur. This was confirmed with a large blunt nerve hook bilaterally. FloSeal and bipolar cautery were next used to achieve hemostasis. Contouring and arthrodesis of thedisc space was then finally performed with a high-speed drill. Anterior osteophytes were removed, and a trial was then inserted in the disc space and a 6 mm structural allograft interbody was placed without complication under fluoroscopic guidance. We then turned our attention to C6/7 and performed the same surgical technique for discectomy, foraminotomy, and confirmation of our decompression. Contouring and arthrodesis of the disc space was then finally performed with a high-speed drill. Anterior osteophytes were removed, and a trial was then inserted in the disc space and a 6 mm structural allograft interbody was placed without complication under fluoroscopic guidance at the second level as well. We then used an anterior plate and secured this with 19 mm screws at C5 and C7 and 17 mm at C6 to fixate the spine in place. This was final tightened and secured to the vertebral bodies. Copious amounts of irrigation were used and FloSeal and Bipolar caudery for hemostasis. Final x-rays confirmed accurate placement of all hardware across the C5-7 disc spaces. A subplatysmal drain was placed and secured with a 2-0 silk. The platysma and dermal layers were then approximated with 3-0 Vicryl sutures. Skin was approximated with a Biosyn stitch in a subcuticular fashion followed by Dermabond on theskin. The patient was then extubated and returned to PACU in stable condition. Complications: None; patient tolerated the procedure well. Disposition: PACU - hemodynamically stable. Condition: stable Additional Details: none Attending Attestation: Camille Harris Cosigned by Camille Harris MD at 04/09/2024 4:50 PM EDT [facility] Work Phone: [phone]) 196-995110-23-2024 Attending History and physical note* Rojas Edwards MD - 04/09/2024 12:22 PM EDT H&P reviewed. The patient was examined and there are no changes to the H&P. Cosigned by Camille Harris MD at 04/09/2024 12:53 PM EDT Source Note - Rick Mckinney APRN-FIBER MACHINE TENDER - 03/26/2024 10:30 AM EDT Images from the original note were not included. CPM/PAT Evaluation Name: Jovani Melendez (Jovani Melendez) /Age: 611/24/1960/63 y.o. Visit Type: In-Person Chief Complaint: preop eval HPI The patient is a 63 year old male with complaints of ongoing neck pain and upper extremity radiculopathy. He had recent imaging consistent with left sided foraminal stenosis at C5-6 and C6-7. He has failed medical management and wishes to proceed with medical management. He presents todayfor perioperative evaluation in anticipation of Fusion Spine Anterior Cervical and Discectomy C5-6,C6-7 - Bilateral on 04/09/[address] Harris. 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 Family History Problem Relation Name Age of Onset Heart disease Mother Other (bladder cancer) Father Throat cancer Father Allergies Allergen Reactions Keflet Hives Prior to Admission medications Medication Sig Start Date End Date Taking? Authorizing Provider acetaZOLAMIDE (Diamox) 250 mg tablet take 1 tablet by mouth every morning and AFTERNOON and 2 at bedtime as directed Historical Provider, acetaZOLAMIDE (Diamox) 250 mg tablet Take by mouth once every 24 hours. Historical Provider, albuterol 90 mcg/actuation inhaler Inhale 2 puffs every 4 hours if needed. 07/02/23 Historical Provider, amLODIPine (Norvasc) 10 mg tablet Take by mouth once daily. Historical Provider, aspirin 81 mg EC tablet Take 1 tablet (81 mg) by mouth once daily. 08/02/23 Historical Provider, busPIRone (Buspar) 5 mg tablet Take by mouth 2 times a day. Historical Provider, chlorhexidine (Hibiclens) 4 % external liquid Use as directed daily preoperatively 02/11/24 ANOOP Yanes chlorhexidine (Peridex) 0.12 % solution Swish and spit with 15ml of solution the night before and morning of surgery. Do not swallow. 02/11/24 ANOOP Yanes citalopram (CeleXA) 20 mg tablet Take 0.5 tablets (10 mg) by mouth once daily. Historical Provider, clopidogrel (Plavix) 75 mg tablet Take by mouth once daily. Historical Provider, lisinopril 5 mg tablet Take 2 tablets (10 mg) by mouth once daily. Historical Provider, tiZANidine (Zanaflex) 4 mg capsule Take 1 capsule (4 mg) by mouth once daily at bedtime. HistoricalProviderMD PAT ROS: Constitutional: neg Neuro/Psych: LUE weakness neg Eyes: neg Ears: neg Nose: neg Mouth: neg Throat: neg Neck: neg neck pain neck stiffness Cardio: neg Respiratory: neg Endocrine: neg GI: neg : neg Musculoskeletal: arthralgias myalgias decreased ROM Hematologic: neg Skin: neg Physical Exam Vitals reviewed. Constitutional: Appearance: Normal appearance. HENT: Head: Normocephalic and atraumatic. Nose: Nose normal. Mouth/Throat: Mouth: Mucous membranes are moist. Pharynx: Oropharynx is clear. Eyes: Extraocular Movements: Extraocular movements intact. Pupils: Pupils are equal, round, and reactive to light. Cardiovascular: Rate and Rhythm: Normal rate and regular rhythm. Pulses: Normal pulses. Heart sounds: Normal heart sounds. Pulmonary: Effort: Pulmonary effort is normal. Breath sounds: Normal breath sounds. Musculoskeletal: Cervical back: Rigidity present. Skin: General: Skin is warm and dry. Neurological: General: No focal deficit present. Mental Status: He is alert and oriented to person, place, and time. Psychiatric: Mood and Affect: Mood normal. Behavior: Behavior normal. PAT AIRWAY: Airway: Mallampati:: III Neck ROM:: Limited Doesn't wear bottom denture upper dentures and lower dentures Visit Vitals BP 138/85 Pulse 74 Temp 36.5 C (97.7 F) (Temporal) Ht 1.727 m (5' 8 ) Wt 81.9 kg (180 lb 8.9 oz) SpO2 98% BMI 27.45 kg/m Smoking Status Every Day BSA 1.98 m DASI Risk Score Flowsheet Row Pre-Admission Testing from 02/11/2024 in [facility] Questionnaire Series Submission from 02/06/2024 in [facility] with Generic Provider Laura Can you take care of yourself (eat, dress, bathe, or use toilet)? 2.75 filed at 02/11/20248 2.75 filed at 02/06/2024 0032 Can you walk indoors, such as around your house? 1.75 filed at 02/11/2024 1418 1.75 filed at 02/06/2024 0032 Can you walk a block or two on level ground? 2.75 filed at 02/11/2024 1418 2.75 filed at 32 Can you climb a flight of stairs or walk up a hill? 5.5 filed at 02/11/20248 5.5 filed at 02/06/2024 0032 Can you run a short distance? 0 filed at 02/11/20248 8 filed at 02/06/2024 0032 Can you do light work around the house like dusting or washing dishes? 2.7 filed at 02/11/2024 29436.7 filed at 02/06/2024 0032 Can you do moderate work around the house like vacuuming, sweeping floors or carrying groceries? 3.5 filed at 02/11/2024 1418 3.5 filed at 02/06/2024 0032 Can you do heavy work around the house like scrubbing floors or lifting and moving heavy furniture?0 filed at 02/11/2024 1418 8 filed at 02/06/2024 0032 Can you do yard work like raking leaves, weeding or pushing a mower? 0 filed at 02/11/2024 1418 4.5filed at 02/06/2024 0032 Can you have sexual relations? 0 filed at 02/11/2024 1418 0 filed at 02/06/2024 0032 Can you participate in moderate recreational activities like golf, bowling, dancing, doubles tennisor throwing a baseball or football? 0 filed at 02/11/2024 1418 0 filed at 02/06/2024 0032 Can you participate in strenous sports like swimming, singles tennis, football, basketball, or skiing? 0 filed at 02/11/2024 1418 0 filed at 02/06/2024 0032 DASI SCORE 18.95 filed at 02/11/2024 1418 39.45 filed at 02/06/2024 0032 METS Score (Will be calculated only when all the questions are answered) 5.1 filed at 02/11/2024 1418 7.6 filed at 02/06/2024 0032 Caprini DVT Assessment Flowsheet Row Pre-Admission Testing from 02/11/2024 in [facility] DVT Score 11 filed at 02/11/2024 1506 BMI 30 or less filed at 02/11/2024 1506 RETIRED: Current Status Major surgery planned, lasting over 3 hours filed at 02/11/2024 1506 RETIRED: History Prior major surgery, Previous malignancy filed at 02/11/2024 1506 RETIRED: Age 60-75 years filed at 02/11/2024 1506 Modified Frailty Index Flowsheet Row Pre-Admission Testing from 02/11/2024 in [facility] Non-independent functional status (problems with dressing, bathing, personal grooming, or cooking) 0 filed at 02/11/2024 1505 History of diabetes mellitus 0 filed at 02/11/2024 1505 History of COPD 0 filed at 02/11/2024 1505 History of CHF No filed at 02/11/2024 1505 History of [place] 0 filed at 02/11/2024 1505 History of Percutaneous Coronary Intervention, Cardiac Surgery, or Angina No filed at 02/11/2024 1505 Hypertension requiring the use of medication 0.0909 filed at 02/11/2024 1505 Peripheral vascular disease 0.0909 filed at 02/11/2024 1505 Impaired sensorium (cognitive impairement or loss, clouding, or delirium) 0 filed at 02/11/2024 1505 TIA or CVA withouy residual deficit 0 filed at 02/11/2024 1505 Cerebrovascular accident with deficit 0 filed at 02/11/2024 1505 Modified Frailty Index Calculator .1818 filed at 02/11/2024 1505 CHADS2 Stroke Risk Current as of today N/A 3 to 100%: High Risk 2 to < 3%: Medium Risk 0 to < 2%: Low Risk Last Change: N/A This score determines the patient's risk of having a stroke if the patient has atrial fibrillation. This score is not applicable to this patient. Components are not calculated. Revised Cardiac Risk Index Flowsheet Row Pre-Admission Testing from 02/11/2024 in [facility] High-Risk Surgery (Intraperitoneal, Intrathoracic,Suprainguinal vascular) 0 filed at 02/11/2024 1505 History of ischemic heart disease (History of [place], History of positive exercuse test, Current chest paint considered due to myocardial ischemia, Use of nitrate therapy, ECG with pathological Q Waves) 1 filed at 02/11/2024 1505 History of congestive heart failure (pulmonary edemia, bilateral rales or S3 gallop, Paroxysmal nocturnal dyspnea, CXR showing pulmonary vascular redistribution) 0 filed at 02/11/2024 1505 History of cerebrovascular disease (Prior TIA or stroke) 0 filed at 02/11/2024 1505 Pre-operative insulin treatment 0 filed at 02/11/2024 1505 Pre-operative creatinine>2 mg/dl 0 filed at 02/11/2024 1505 Revised Cardiac Risk Calculator 1 filed at 02/11/2024 1505 Apfel Simplified Score Flowsheet Row Pre-Admission Testing from 02/11/2024 in [facility] Smoking status 0 filed at 02/11/2024 1506 History of motion sickness or PONV 0 filed at 02/11/2024 1506 Use of postoperative opioids 1 filed at 02/11/2024 1506 Gender - Female 0=No filed at 02/11/2024 1506 Apfel Simplified Score Calculator 1 filed at 02/11/2024 1506 Risk Analysis Index Results This Encounter No data found in the last 10 encounters. Stop Bang Score Flowsheet Row Pre-Admission Testing from 03/26/2024 in [facility] Pre-Admission Testing from 02/11/2024 in [facility] Do you snore loudly? 0 filed at 03/26/2024 1023 0 filed at 02/11/2024 1418 Do you often feel tired or fatigued after your sleep? 0 filed at 03/26/2024 1023 0 filed at 02/11/2024 1418 Has anyone ever observed you stop breathing in your sleep? 0 filed at 03/26/2024 1023 0 filed at 02/11/2024 1418 Do you have or are you being treated for high blood pressure? 1 filed at 03/26/2024 1023 1 filed at02/11/2024 1418 Recent BMI (Calculated) 27.7 filed at 03/26/2024 1023 27.4 filed at 02/11/2024 1418 Is BMI greater than 35 kg/m2? 0=No filed at 03/26/2024 1023 0=No filed at 02/11/2024 1418 Age older than 50 years old? 1=Yes filed at 03/26/2024 1023 1=Yes filed at 02/11/2024 1418 Is your neck circumference greater than 17 inches (Male) or 16 inches (Female)? 0 filed at 03/26/2024 1023 0 filed at 02/11/2024 1418 Gender - Male 1=Yes filed at 03/26/2024 1023 1=Yes filed at 02/11/2024 1418 STOP-BANG Total Score 3 filed at 03/26/2024 1023 3 filed at 02/11/2024 1418 Recent Results (from the past 1344 hour(s)) Staphylococcus aureus/MRSA colonization, Culture Collection Time: 02/11/24 3:05 PM Specimen: Anterior Nares; Swab Result Value Ref Range Staph/MRSA Screen Culture No Staphylococcus aureus isolated Nicotine and Metabolites,S Collection Time: 02/11/24 3:05 PM Result Value Ref Range Nicotine Blood Quantitative 6 ng/mL Cotinine Blood Quantitative 152 ng/mL CBC and Auto Differential Collection Time: 02/11/24 3:05 PM Result Value Ref Range WBC 5.3 4.4 - 11.3 x10*3/uL nRBC 0.0 0.0 - 0.0 /100 WBCs RBC 4.19 (L) 4.50 - 5.90 x10*6/uL Hemoglobin 13.2 (L) 13.5 - 17.5 g/dL Hematocrit 39.6 (L) 41.0 - 52.0 % MCV 95 80 - 100 fL MCH 31.5 26.0 - 34.0 pg MCHC 33.3 32.0 - 36.0 g/dL RDW 13.2 11.5 - 14.5 % Platelets 271 150 - 450 x10*3/uL Neutrophils % 59.4 40.0 - 80.0 % Immature Granulocytes %, Automated 0.0 0.0 - 0.9 % Lymphocytes % 33.1 13.0 - 44.0 % Monocytes % 5.7 2.0 - 10.0 % Eosinophils % 1.0 0.0 - 6.0 % Basophils % 0.8 0.0 - 2.0 % Neutrophils Absolute 3.13 1.20 - 7.70 x10*3/uL Immature Granulocytes Absolute, Automated 0.00 0.00 - 0.70 x10*3/uL Lymphocytes Absolute 1.74 1.20 - 4.80 x10*3/uL Monocytes Absolute 0.30 0.10 - 1.00 x10*3/uL Eosinophils Absolute 0.05 0.00 - 0.70 x10*3/uL Basophils Absolute 0.04 0.00 - 0.10 x10*3/uL Coagulation Screen Collection Time: 02/11/24 3:05 PM Result Value Ref Range Protime 11.5 9.8 - 12.8 seconds INR 1.0 0.9 - 1.1 aPTT 33 27 - 38 seconds Type And Screen Collection Time: 02/11/24 3:05 PM Result Value Ref Range ABO TYPE A Rh TYPE POS ANTIBODY SCREEN NEG Basic Metabolic Panel Collection Time: 02/11/24 3:05 PM Result Value Ref Range Glucose 77 74 - 99 mg/dL Sodium 138 136 - 145 mmol/L Potassium 4.6 3.5 - 5.3 mmol/L Chloride 104 98 - 107 mmol/L Bicarbonate 26 21 - 32 mmol/L Anion Gap 13 10 - 20 mmol/L Urea Nitrogen 9 6 - 23 mg/dL Creatinine 0.89 0.50 - 1.30 mg/dL eGFR >90 >60 mL/min/1.73m*2 Calcium 9.6 8.6 - 10.6 mg/dL Urinalysis with Reflex Culture and Microscopic Collection Time: 02/11/24 3:05 PM Result Value Ref Range Color, Urine Colorless (N) Light-Yellow, Yellow, Dark-Yellow Appearance, Urine Clear Clear Specific Amado, Urine 1.007 1.005 - 1.035 pH, Urine 5.5 5.0, 5.5, 6.0, 6.5, 7.0, 7.5, 8.0 Protein, Urine NEGATIVE NEGATIVE, 10 (TRACE), 20 (TRACE) mg/dL Glucose, Urine Normal Normal mg/dL Blood, Urine NEGATIVE NEGATIVE Ketones, Urine NEGATIVE NEGATIVE mg/dL Bilirubin, Urine NEGATIVE NEGATIVE Urobilinogen, Urine Normal Normal mg/dL Nitrite, Urine NEGATIVE NEGATIVE Leukocyte Esterase, Urine NEGATIVE NEGATIVE Extra Urine Laguerre Tube Collection Time: 02/11/24 3:05 PM Result Value Ref Range Extra Tube Hold for add-ons. ECG 12 lead Collection Time: 02/12/24 8:57 AM Result Value Ref Range Ventricular Rate 63 BPM Atrial Rate 63 BPM MN Interval 268 ms QRS Duration 74 ms QT Interval 406 ms QTC Calculation(Bazett) 415 ms P [place] 58 degrees R [place] -3 degrees T [place] 18 degrees QRS Count 10 beats Q Onset 224 ms P Onset 90 ms P Offset 149 ms T Offset 427 ms QTC Fredericia 412 ms Type And Screen Collection Time: 03/26/24 10:38 AM Result Value Ref Range ABO TYPE A Rh TYPE POS ANTIBODY SCREEN NEG Diagnostic Results -EC02/11/24 Sinus rhythm with 1st degree AV block Otherwise normal ECG When compared with ECG of 30-JAN-2019 19:26, heart rate decreased -EC01/30/19 Undetermined rhythm, possible atypical A Flutter Abnormal ECG No previous ECGs available - MR BRAIN TUMOR PERFUSION PROTOCOL W AND WO IV CONTRAST; 12/13/2023 IMPRESSION: There is again evidence of nonspecific nonenhancing ill-defined abnormal bright signal on the FLAIRand T2 weighted images infiltrating the brainstem most [...] following CSF in signal noted within the leftsubinsular region as seen on axial slice 21 of 41 which while nonspecific raises the possibility ofan incidental prominent perivascular space. 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 Assessment and Plan: Anesthesia: The patient denies problems with anesthesia in the past such as PONV, prolonged sedation, awareness, dental damage, aspiration, cardiac arrest, difficult intubation, or unexpected hospital admissions. Neuro: The patient has diagnoses or significant findings on chart review or clinical presentation and evaluation significant for anxiety, depression on celexa, buspar and xanax as needed. 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 Per last office note... -Since there isn't any evidence for growth of the lesion, and it appears to be low-grade, we will hold off on any empiric chemo- RT.Therefore, we will continue to follow it closely with watchful waiting . Return to clinic in 20 weeks. The patient is at increased risk for postoperative delirium secondary to depression, polypharmacy. The patient is at increased risk for perioperative stroke secondary to hypertension , increased age, general anesthesia, operative time >2.5 hours. Handouts for preoperative brain exercises given to patient. Neurosurgery: Camille Harris MD [facility] 01/03/24 seen for cervical radiculopathy. Neurosurgery: Addis Khan MD [facility] 11/05/23- [facility] seen for cervical stenosis of spine. Oncology: Ignacia Jack MD [facility] 12/13/23 seen for incidental pontine lesion- appears to be low-grade. HEENT/Airway The patient has history of selective right neck dissection (II-V) and bilateral base of tongue/linguial tonsillar excision on 01/30/[address] 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 Currently with limited neck extension. No documented or reported history of airway difficulty. HemOnc: Memo Cole MD [facility] 11/02/23-[facility] seen for head and neck cancer. Cardiovascular The patient has diagnoses or significant findings on chart review or clinical presentation and evaluation significant for HTN, PAD s/p stent (05/2023) on aspirin therapy. He is followed by Dr. Ruddy Harvey-clearance provided in media tab. He is scheduled for non-cardiac surgery associated with elevated risk. The patient has no major cardiac contraindications to non- cardiac surgery. RCRI The patient meets 0-1 RCRI criteria and therefore has a less than 1% risk of major adverse cardiac complications. METS The patient's functional capacity capacity is greater than 4 METS. The patient has a 30-day risk for MACE of 1 predictor, 6.0% risk for cardiac , nonfatal myocardial infarction, and nonfatal cardiac arrest. SIERRA score which indicates a 0.1% risk of intraoperative or 30-day postoperative MACE (major adverse cardiac event). Cardiology Evaluation Cardiology: Lilliam Cason MD - [facility] (see media tab for last office note) Pulmonary No significant findings on chart review or clinical presentation and evaluation. The patient is at increased risk of perioperative pulmonary complications secondary to neck surgery, advanced age greater than 60, ongoing tobacco use. Smoking cessation discussed. Covid one month ago not requiring hospitalization. Denies any current symptoms. The patient has a stop bang score of 3, which places patient at intermediate risk for having KIRK. ARISCAT 26, Intermediate, 13.3% risk of in-hospital postoperative pulmonary complications PRODIGY 19, high risk of respiratory depression episode. Patient given PI sheet for preoperative deep breathing exercises. Hematology No diagnoses or significant findings on chart review or clinical presentation and evaluation. Caprini score 11, high risk of perioperative VTE. Patient instructed to ambulate as soon as possible postoperatively to decrease thromboembolic risk.Initiate mechanical DVT prophylaxis as soon as possible and initiate chemical prophylaxis when deemed safe from a bleeding standpoint post surgery. Transfusion Evaluation A type and screen was obtained given the likelihood for perioperative transfusion of blood or bloodproducts. Gastrointestinal No diagnoses or significant findings on chart review or clinical presentation and evaluation. Eat 10- 2, self-perceived oropharyngeal dysphagia scale (0-40) Genitourinary No diagnoses or significant findings on chart review or clinical presentation and evaluation. Renal The patient has no known history of chronic kidney disease. No renal diagnoses or significant findings on chart review or clinical presentation and evaluation. The patient has specific risk factors associated with increased risk of perioperative renal complications related to age greater than 55, male gender, hypertension, peripheral vascular disease. Preventative measures include preoperative hydration. Musculoskeletal No diagnoses or significant findings on chart review or clinical presentation and evaluation. Endocrine No diagnoses or significant findings on chart review or clinical presentation and evaluation. ID No diagnoses or significant findings on chart review or clinical presentation and evaluation. MRSA screening obtained. Prescriptions and instructions given for Hibiclens and Peridex. Other History of skin cancer s/p Moh's procedure to the scalp and nose. -Preoperative medication instructions were provided and reviewed with the patient. Any additional testing or evaluation was explained to the patient. NPO Instructions were discussed, and the patient's questions were answered prior to conclusion of this encounter. Patient verbalized understanding ofpreoperative instructions. After Visit Summary given. [facility] Work Phone: 1(481) 235-223110-23-2024 History and physical note* Rojas Edwards MD - 04/09/2024 12:22 PM EDT H&P reviewed. The patient was examined and there are no changes to the H&P. Cosigned by Camille Harris MD at 04/09/2024 12:53 PM EDT Source Note - Rick MckinneyBAILEY-FIBER MACHINE TENDER - 03/26/2024 10:30 AM EDT Images from the original note were not included. CPM/PAT Evaluation Name: Jovani Melendez (Jovani Melendez) /Age: 6 1960 63 y.o. Visit Type: In-Person Chief Complaint: preop eval HPI The patient is a 63 year old male with complaints of ongoing neck pain and upper extremity radiculopathy. He had recent imaging consistent with left sided foraminal stenosis at C5-6 and C6-7. He has failed medical management and wishes to proceed with medical management. He presents todayfor perioperative evaluation in anticipation of Fusion Spine Anterior Cervical and Discectomy C5-6,C6-7 - Bilateral on 04/09/[address] Harris. Past Medical History: Diagnosis Date Anxiety Cataract s/p excision of left Cervical radiculopathy Chronic pain disorder Coronary artery disease Depression Dysphagia thin liquids Hypertension NPH (normal pressure hydrocephalus) (Multi) PAD (peripheral artery disease) ([facility]) s/p stent (05/2023) on ASA 81mg Peripheral vascular disease ([facility]) Pontine lesion watchful waiting Pulmonary nodule Skin cancer of scalp s/p excsison Spinal stenosis severe cervical stenosis, left sided foraminal stenosis at C5-6 and C6-7 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 Family History Problem Relation Name Age of Onset Heart disease Mother Other (bladder cancer) Father Throat cancer Father Allergies Allergen Reactions Keflet Hives Prior to Admission medications Medication Sig Start Date End Date Taking? Authorizing Provider acetaZOLAMIDE (Diamox) 250 mg tablet take 1 tablet by mouth every morning and AFTERNOON and 2 at bedtime as directed Historical Provider, acetaZOLAMIDE (Diamox) 250 mg tablet Take by mouth once every 24 hours. Historical Provider, albuterol 90 mcg/actuation inhaler Inhale 2 puffs every 4 hours if needed. 07/02/23 Historical Provider, amLODIPine (Norvasc) 10 mg tablet Take by mouth once daily. Historical Provider, aspirin 81 mg EC tablet Take 1 tablet (81 mg) by mouth once daily. 08/02/23 Historical Provider, busPIRone (Buspar) 5 mg tablet Take by mouth 2 times a day. Historical Provider, chlorhexidine (Hibiclens) 4 % external liquid Use as directed daily preoperatively 02/11/24 ANOOP Yanes chlorhexidine (Peridex) 0.12 % solution Swish and spit with 15ml of solution the night before and morning of surgery. Do not swallow. 02/11/24 ANOOP Yanes citalopram (CeleXA) 20 mg tablet Take 0.5 tablets (10 mg) by mouth once daily. Historical Provider, clopidogrel (Plavix) 75 mg tablet Take by mouth once daily. Historical Provider, lisinopril 5 mg tablet Take 2 tablets (10 mg) by mouth once daily. Historical Provider, tiZANidine (Zanaflex) 4 mg capsule Take 1 capsule (4 mg) by mouth once daily at bedtime. HistoricalProviderMD PAT ROS: Constitutional: neg Neuro/Psych: LUE weakness neg Eyes: neg Ears: neg Nose: neg Mouth: neg Throat: neg Neck: neg neck pain neck stiffness Cardio: neg Respiratory: neg Endocrine: neg GI: neg : neg Musculoskeletal: arthralgias myalgias decreased ROM Hematologic: neg Skin: neg Physical Exam Vitals reviewed. Constitutional: Appearance: Normal appearance. HENT: Head: Normocephalic and atraumatic. Nose: Nose normal. Mouth/Throat: Mouth: Mucous membranes are moist. Pharynx: Oropharynx is clear. Eyes: Extraocular Movements: Extraocular movements intact. Pupils: Pupils are equal, round, and reactive to light. Cardiovascular: Rate and Rhythm: Normal rate and regular rhythm. Pulses: Normal pulses. Heart sounds: Normal heart sounds. Pulmonary: Effort: Pulmonary effort is normal. Breath sounds: Normal breath sounds. Musculoskeletal: Cervical back: Rigidity present. Skin: General: Skin is warm and dry. Neurological: General: No focal deficit present. Mental Status: He is alert and oriented to person, place, and time. Psychiatric: Mood and Affect: Mood normal. Behavior: Behavior normal. PAT AIRWAY: Airway: Mallampati:: III Neck ROM:: Limited Doesn't wear bottom denture upper dentures and lower dentures Visit Vitals BP 138/85 Pulse 74 Temp 36.5 C (97.7 F) (Temporal) Ht 1.727 m (5' 8 ) Wt 81.9 kg (180 lb 8.9 oz) SpO2 98% BMI 27.45 kg/m Smoking Status Every Day BSA 1.98 m DASI Risk Score Flowsheet Row Pre-Admission Testing from 02/11/2024 in [facility] Questionnaire Series Submission from 02/06/2024 in [facility] with Generic Provider Laura Can you take care of yourself (eat, dress, bathe, or use toilet)? 2.75 filed at 02/11/20248 2.75 filed at 02/06/2024 0032 Can you walk indoors, such as around your house? 1.75 filed at 02/11/20248 1.75 filed at 02/06/2024 0032 Can you walk a block or two on level ground? 2.75 filed at 02/11/20248 2.75 filed at 32 Can you climb a flight of stairs or walk up a hill? 5.5 filed at 02/11/20248 5.5 filed at 02/06/2024 0032 Can you run a short distance? 0 filed at 02/11/20248 8 filed at 02/06/2024 003 Can you do light work around the house like dusting or washing dishes? 2.7 filed at 02/11/2024 38602.7 filed at 02/06/2024 0032 Can you do moderate work around the house like vacuuming, sweeping floors or carrying groceries? 3.5 filed at 02/11/20241417 3.5 filed at 02/06/202431 Can you do heavy work around the house like scrubbing floors or lifting and moving heavy furniture?0 filed at 02/11/20248 8 filed at 02/06/2024 0032 Can you do yard work like raking leaves, weeding or pushing a mower? 0 filed at 02/11/2024 1418 4.5filed at 02/06/2024 003 Can you have sexual relations? 0 filed at 02/11/2024 1418 0 filed at 02/06/2024 003 Can you participate in moderate recreational activities like golf, bowling, dancing, doubles tennisor throwing a baseball or football? 0 filed at 02/11/2024 1418 0 filed at 02/06/2024 003 Can you participate in strenous sports like swimming, singles tennis, football, basketball, or skiing? 0 filed at 02/11/2024 1418 0 filed at 02/06/202431 DASI SCORE 18.95 filed at 02/11/20241417 39.45 filed at 02/06/2024 003 METS Score (Will be calculated only when all the questions are answered) 5.1 filed at 02/11/2024 141 7.6 filed at 02/06/2024 003 Caprini DVT Assessment Flowsheet Row Pre-Admission Testing from 02/11/2024 in [facility] DVT Score 11 filed at 02/11/2024 1506 BMI 30 or less filed at 02/11/2024 1506 RETIRED: Current Status Major surgery planned, lasting over 3 hours filed at 02/11/2024 1506 RETIRED: History Prior major surgery, Previous malignancy filed at 02/11/2024 1506 RETIRED: Age 60-75 years filed at 02/11/2024 1506 Modified Frailty Index Flowsheet Row Pre-Admission Testing from 02/11/2024 in [facility] Non-independent functional status (problems with dressing, bathing, personal grooming, or cooking) 0 filed at 02/11/2024 1505 History of diabetes mellitus 0 filed at 02/11/2024 1505 History of COPD 0 filed at 02/11/2024 1505 History of CHF No filed at 02/11/2024 1505 History of [place] 0 filed at 02/11/2024 1505 History of Percutaneous Coronary Intervention, Cardiac Surgery, or Angina No filed at 02/11/2024 1505 Hypertension requiring the use of medication 0.0909 filed at 02/11/2024 1505 Peripheral vascular disease 0.0909 filed at 02/11/2024 1505 Impaired sensorium (cognitive impairement or loss, clouding, or delirium) 0 filed at 02/11/2024 1505 TIA or CVA withouy residual deficit 0 filed at 02/11/2024 1505 Cerebrovascular accident with deficit 0 filed at 02/11/2024 1505 Modified Frailty Index Calculator .1818 filed at 02/11/2024 1505 CHADS2 Stroke Risk Current as of today N/A 3 to 100%: High Risk 2 to < 3%: Medium Risk 0 to < 2%: Low Risk Last Change: N/A This score determines the patient's risk of having a stroke if the patient has atrial fibrillation. This score is not applicable to this patient. Components are not calculated. Revised Cardiac Risk Index Flowsheet Row Pre-Admission Testing from 02/11/2024 in [facility] High-Risk Surgery (Intraperitoneal, Intrathoracic,Suprainguinal vascular) 0 filed at 02/11/2024 1505 History of ischemic heart disease (History of [place], History of positive exercuse test, Current chest paint considered due to myocardial ischemia, Use of nitrate therapy, ECG with pathological Q Waves) 1 filed at 02/11/2024 1505 History of congestive heart failure (pulmonary edemia, bilateral rales or S3 gallop, Paroxysmal nocturnal dyspnea, CXR showing pulmonary vascular redistribution) 0 filed at 02/11/2024 1505 History of cerebrovascular disease (Prior TIA or stroke) 0 filed at 02/11/2024 1505 Pre-operative insulin treatment 0 filed at 02/11/2024 1505 Pre-operative creatinine>2 mg/dl 0 filed at 02/11/2024 1505 Revised Cardiac Risk Calculator 1 filed at 02/11/2024 1505 Apfel Simplified Score Flowsheet Row Pre-Admission Testing from 02/11/2024 in [facility] Smoking status 0 filed at 02/11/2024 1506 History of motion sickness or PONV 0 filed at 02/11/2024 1506 Use of postoperative opioids 1 filed at 02/11/2024 1506 Gender - Female 0=No filed at 02/11/2024 1506 Apfel Simplified Score Calculator 1 filed at 02/11/2024 1506 Risk Analysis Index Results This Encounter No data found in the last 10 encounters. Stop Bang Score Flowsheet Row Pre-Admission Testing from 03/26/2024 in [facility] Pre-Admission Testing from 02/11/2024 in [facility] Do you snore loudly? 0 filed at 03/26/2024 1023 0 filed at 02/11/2024 1418 Do you often feel tired or fatigued after your sleep? 0 filed at 03/26/2024 1023 0 filed at 02/11/2024 1418 Has anyone ever observed you stop breathing in your sleep? 0 filed at 03/26/2024 1023 0 filed at 02/11/2024 1418 Do you have or are you being treated for high blood pressure? 1 filed at 03/26/2024 1023 1 filed at02/11/2024 1418 Recent BMI (Calculated) 27.7 filed at 03/26/2024 1023 27.4 filed at 02/11/2024 1418 Is BMI greater than 35 kg/m2? 0=No filed at 03/26/2024 1023 0=No filed at 02/11/2024 1418 Age older than 50 years old? 1=Yes filed at 03/26/2024 1023 1=Yes filed at 02/11/2024 1418 Is your neck circumference greater than 17 inches (Male) or 16 inches (Female)? 0 filed at 03/26/2024 1023 0 filed at 02/11/2024 1418 Gender - Male 1=Yes filed at 03/26/2024 1023 1=Yes filed at 02/11/2024 1418 STOP-BANG Total Score 3 filed at 03/26/2024 1023 3 filed at 02/11/2024 1418 Recent Results (from the past 1344 hour(s)) Staphylococcus aureus/MRSA colonization, Culture Collection Time: 02/11/24 3:05 PM Specimen: Anterior Nares; Swab Result Value Ref Range Staph/MRSA Screen Culture No Staphylococcus aureus isolated Nicotine and Metabolites,S Collection Time: 02/11/24 3:05 PM Result Value Ref Range Nicotine Blood Quantitative 6 ng/mL Cotinine Blood Quantitative 152 ng/mL CBC and Auto Differential Collection Time: 02/11/24 3:05 PM Result Value Ref Range WBC 5.3 4.4 - 11.3 x10*3/uL nRBC 0.0 0.0 - 0.0 /100 WBCs RBC 4.19 (L) 4.50 - 5.90 x10*6/uL Hemoglobin 13.2 (L) 13.5 - 17.5 g/dL Hematocrit 39.6 (L) 41.0 - 52.0 % MCV 95 80 - 100 fL MCH 31.5 26.0 - 34.0 pg MCHC 33.3 32.0 - 36.0 g/dL RDW 13.2 11.5 - 14.5 % Platelets 271 150 - 450 x10*3/uL Neutrophils % 59.4 40.0 - 80.0 % Immature Granulocytes %, Automated 0.0 0.0 - 0.9 % Lymphocytes % 33.1 13.0 - 44.0 % Monocytes % 5.7 2.0 - 10.0 % Eosinophils % 1.0 0.0 - 6.0 % Basophils % 0.8 0.0 - 2.0 % Neutrophils Absolute 3.13 1.20 - 7.70 x10*3/uL Immature Granulocytes Absolute, Automated 0.00 0.00 - 0.70 x10*3/uL Lymphocytes Absolute 1.74 1.20 - 4.80 x10*3/uL Monocytes Absolute 0.30 0.10 - 1.00 x10*3/uL Eosinophils Absolute 0.05 0.00 - 0.70 x10*3/uL Basophils Absolute 0.04 0.00 - 0.10 x10*3/uL Coagulation Screen Collection Time: 02/11/24 3:05 PM Result Value Ref Range Protime 11.5 9.8 - 12.8 seconds INR 1.0 0.9 - 1.1 aPTT 33 27 - 38 seconds Type And Screen Collection Time: 02/11/24 3:05 PM Result Value Ref Range ABO TYPE A Rh TYPE POS ANTIBODY SCREEN NEG Basic Metabolic Panel Collection Time: 02/11/24 3:05 PM Result Value Ref Range Glucose 77 74 - 99 mg/dL Sodium 138 136 - 145 mmol/L Potassium 4.6 3.5 - 5.3 mmol/L Chloride 104 98 - 107 mmol/L Bicarbonate 26 21 - 32 mmol/L Anion Gap 13 10 - 20 mmol/L Urea Nitrogen 9 6 - 23 mg/dL Creatinine 0.89 0.50 - 1.30 mg/dL eGFR >90 >60 mL/min/1.73m*2 Calcium 9.6 8.6 - 10.6 mg/dL Urinalysis with Reflex Culture and Microscopic Collection Time: 02/11/24 3:05 PM Result Value Ref Range Color, Urine Colorless (N) Light-Yellow, Yellow, Dark-Yellow Appearance, Urine Clear Clear Specific Amado, Urine 1.007 1.005 - 1.035 pH, Urine 5.5 5.0, 5.5, 6.0, 6.5, 7.0, 7.5, 8.0 Protein, Urine NEGATIVE NEGATIVE, 10 (TRACE), 20 (TRACE) mg/dL Glucose, Urine Normal Normal mg/dL Blood, Urine NEGATIVE NEGATIVE Ketones, Urine NEGATIVE NEGATIVE mg/dL Bilirubin, Urine NEGATIVE NEGATIVE Urobilinogen, Urine Normal Normal mg/dL Nitrite, Urine NEGATIVE NEGATIVE Leukocyte Esterase, Urine NEGATIVE NEGATIVE Extra Urine Laguerre Tube Collection Time: 02/11/24 3:05 PM Result Value Ref Range Extra Tube Hold for add-ons. ECG 12 lead Collection Time: 02/12/24 8:57 AM Result Value Ref Range Ventricular Rate 63 BPM Atrial Rate 63 BPM MN Interval 268 ms QRS Duration 74 ms QT Interval 406 ms QTC Calculation(Bazett) 415 ms P [place] 58 degrees R [place] -3 degrees T [place] 18 degrees QRS Count 10 beats Q Onset 224 ms P Onset 90 ms P Offset 149 ms T Offset 427 ms QTC Fredericia 412 ms Type And Screen Collection Time: 03/26/24 10:38 AM Result Value Ref Range ABO TYPE A Rh TYPE POS ANTIBODY SCREEN NEG Diagnostic Results -EC02/11/24 Sinus rhythm with 1st degree AV block Otherwise normal ECG When compared with ECG of 30-JAN-2019 19:26, heart rate decreased -EC01/30/19 Undetermined rhythm, possible atypical A Flutter Abnormal ECG No previous ECGs available - MR BRAIN TUMOR PERFUSION PROTOCOL W AND WO IV CONTRAST; 12/13/2023 IMPRESSION: There is again evidence of nonspecific nonenhancing ill-defined abnormal bright signal on the FLAIRand T2 weighted images infiltrating the brainstem most [...] following CSF in signal noted within the leftsubinsular region as seen on axial slice 21 of 41 which while nonspecific raises the possibility ofan incidental prominent perivascular space. 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 Assessment and Plan: Anesthesia: The patient denies problems with anesthesia in the past such as PONV, prolonged sedation, awareness, dental damage, aspiration, cardiac arrest, difficult intubation, or unexpected hospital admissions. Neuro: The patient has diagnoses or significant findings on chart review or clinical presentation and evaluation significant for anxiety, depression on celexa, buspar and xanax as needed. 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 Per last office note... -Since there isn't any evidence for growth of the lesion, and it appears to be low-grade, we will hold off on any empiric chemo- RT.Therefore, we will continue to follow it closely with watchful waiting . Return to clinic in 20 weeks. The patient is at increased risk for postoperative delirium secondary to depression, polypharmacy. The patient is at increased risk for perioperative stroke secondary to hypertension , increased age, general anesthesia, operative time >2.5 hours. Handouts for preoperative brain exercises given to patient. Neurosurgery: Camille Harris MD [facility] 01/03/24 seen for cervical radiculopathy. Neurosurgery: Addis Khan MD [facility] 11/05/23- [facility] seen for cervical stenosis of spine. Oncology: Ignacia Jack MD [facility] 12/13/23 seen for incidental pontine lesion- appears to be low-grade. HEENT/Airway The patient has history of selective right neck dissection (II-V) and bilateral base of tongue/linguial tonsillar excision on 01/30/[address] 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 Currently with limited neck extension. No documented or reported history of airway difficulty. HemOnc: Memo Cole MD [facility] 11/02/23-[facility] seen for head and neck cancer. Cardiovascular The patient has diagnoses or significant findings on chart review or clinical presentation and evaluation significant for HTN, PAD s/p stent (05/2023) on aspirin therapy. He is followed by Dr. Ruddy Harvey-clearance provided in media tab. He is scheduled for non-cardiac surgery associated with elevated risk. The patient has no major cardiac contraindications to non- cardiac surgery. RCRI The patient meets 0-1 RCRI criteria and therefore has a less than 1% risk of major adverse cardiac complications. METS The patient's functional capacity capacity is greater than 4 METS. The patient has a 30-day risk for MACE of 1 predictor, 6.0% risk for cardiac , nonfatal myocardial infarction, and nonfatal cardiac arrest. SIERRA score which indicates a 0.1% risk of intraoperative or 30-day postoperative MACE (major adverse cardiac event). Cardiology Evaluation Cardiology: Lilliam Cason MD - [facility] (see media tab for last office note) Pulmonary No significant findings on chart review or clinical presentation and evaluation. The patient is at increased risk of perioperative pulmonary complications secondary to neck surgery, advanced age greater than 60, ongoing tobacco use. Smoking cessation discussed. Covid one month ago not requiring hospitalization. Denies any current symptoms. The patient has a stop bang score of 3, which places patient at intermediate risk for having KIRK. ARISCAT 26, Intermediate, 13.3% risk of in-hospital postoperative pulmonary complications PRODIGY 19, high risk of respiratory depression episode. Patient given PI sheet for preoperative deep breathing exercises. Hematology No diagnoses or significant findings on chart review or clinical presentation and evaluation. Caprini score 11, high risk of perioperative VTE. Patient instructed to ambulate as soon as possible postoperatively to decrease thromboembolic risk.Initiate mechanical DVT prophylaxis as soon as possible and initiate chemical prophylaxis when deemed safe from a bleeding standpoint post surgery. Transfusion Evaluation A type and screen was obtained given the likelihood for perioperative transfusion of blood or bloodproducts. Gastrointestinal No diagnoses or significant findings on chart review or clinical presentation and evaluation. Eat 10- 2, self-perceived oropharyngeal dysphagia scale (0-40) Genitourinary No diagnoses or significant findings on chart review or clinical presentation and evaluation. Renal The patient has no known history of chronic kidney disease. No renal diagnoses or significant findings on chart review or clinical presentation and evaluation. The patient has specific risk factors associated with increased risk of perioperative renal complications related to age greater than 55, male gender, hypertension, peripheral vascular disease. Preventative measures include preoperative hydration. Musculoskeletal No diagnoses or significant findings on chart review or clinical presentation and evaluation. Endocrine No diagnoses or significant findings on chart review or clinical presentation and evaluation. ID No diagnoses or significant findings on chart review or clinical presentation and evaluation. MRSA screening obtained. Prescriptions and instructions given for Hibiclens and Peridex. Other History of skin cancer s/p Moh's procedure to the scalp and nose. -Preoperative medication instructions were provided and reviewed with the patient. Any additional testing or evaluation was explained to the patient. NPO Instructions were discussed, and the patient's questions were answered prior to conclusion of this encounter. Patient verbalized understanding ofpreoperative instructions. After Visit Summary given. [facility] Phone: 1(461) 320-981410-15-2024 Evaluation note* Author [facility] Authored April 01, 2024 1 0:01am The above note written by Leon Humphreys LPN, acting as human recorder, note dictated by Dr. Griselda Krause. [facility] Work Phone: 1(245) 290-892708-15-2024 Evaluation note* Author [facility] Authored January 31, 2024 10 :40am The above note written by Leon Humphreys LPN, acting as human recorder, note dictated by Dr. Griselda Krause. Author [facility] Authored April 01, 2024 1 1:01am The above note written by Leon Humphreys LPN, acting as human recorder, note dictated by Dr. Griselda Krause. [facility] Work Phone: 1(882) 227-161907-18-2024 History of Present illness Narrative* Camille Harris MD - 01/03/2024 1:30 PM EDT Jovani Melendez is a 63 y.o. year old male p/w cervical radiculopathy. systems reviewed and negative other than what is listed in the history of present illness Past Medical History: Diagnosis Date Personal history of malignant neoplasm of other organs and systems 11/21/2021 History of squamous cell carcinoma Past Surgical History: Procedure Laterality Date OTHER SURGICAL HISTORY 11/21/2021 Excision melanoma Current Outpatient Medications: amLODIPine (Norvasc) 10 mg tablet, Take by mouth once daily., Disp: , Rfl: busPIRone (Buspar) 5 mg tablet, Take by mouth 2 times a day., Disp: , Rfl: citalopram (CeleXA) 20 mg tablet, Take 0.5 tablets (10 mg) by mouth once daily., Disp: , Rfl: clopidogrel (Plavix) 75 mg tablet, Take by mouth once daily., Disp: , Rfl: lisinopril 5 mg tablet, Take 2 tablets (10 mg) by mouth once daily., Disp: , Rfl: tiZANidine (Zanaflex) 4 mg capsule, Take 1 capsule (4 mg) by mouth once daily at bedtime., Disp: , Rfl: There were no vitals filed for this visit. Objective General: Well developed, awake/alert/oriented x3, no distress, alert and cooperative Skin: Warm and dry, no lesions, no rashes ENMT: Mucous membranes moist, no apparent injury, no lesions seen Head/Neck: Neck Supple, no apparent injury Respiratory/Thorax: Normal breath sounds with good chest expansion, thorax symmetric Cardiovascular: No pitting edema, no JVD Motor Strength: 5/5 Throughout all extremities Muscle Bulk: Normal and symmetric in all extremities Posture: -- Cervical: Normal -- Thoracic: Normal -- Lumbar : Normal Paraspinal muscle spasm/tenderness absent. 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 Jovani Melendez is a very nice 63 y.o. year old male presenting today with neck pain. He mentions his pain starts at his neck and is moving to his left shoulder, arm and till his little finger with tingling and numbness. His symptoms are present for 9 years. He denies similar symptoms on the right upper extremity. He tried medications, physical therapy and pain management with minimal improvement.He has also tried ablations and epidural injections. He denies weakness/ dropping of objects/ difficulty opening jars. 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 He has a brain tumor for which he is following up with neuro-oncologist. He previously had a history of tongue CA s/p resection without radiation or chemotherapy. He has PAD s/p stent (05/2023) for which he is supposed to be on ASA/plavix. However, he is only taking ASA currently. He will call his doctor to confirm he needs dual AP and whether or not he can beoff for surgery. He is a chronic smoker and is smoking half a pack of cigarettes per day. He will need to quit before any surgical intervention. We reviewed CT and Mri scans together today. He does not have any central stenosis but does have left sided foraminal stenosis at C5-6 and C6-7. On examination he is moving all four limbs with full strength and has intact neurological examination. In view of his symptoms, I have offered him surgery in the form of C5-6, C6-7 ACDF. We discussed the surgical options, benefits and risks which includes anesthesia risks, infection, spinal fluid leakage, bleeding,hematoma and injury to blood vessel or nerve in and around the spinal cord region. Other risks include recurrent laryngeal nerve damage, difficulty swallowing, voice changes. He needs a clearance and advice about his blood thinners from his vascular surgeon before surgery. He needs clearance from his oncologist regarding his brain stem glioma. He needs to quit smoking before surgery. We will check his nicotine levels prior to surgery. I have ordered DEXA scan to access his bone density in the setting of prolonged nicotine exposure. He will need a bone stimulator after surgery. Camille Harris MD Full Charge Bookkeeper of Neurosurgery [facility] Neuro[facility] ICU Office: [phone] Scribe Attestation By signing my name below, I, ParisaErlinda Tipton attest that this documentation has been prepared under the direction and in the presence of MD Shirley. documented in this [facility] Work Phone: 1(765) 141-179806-27-2024 History of Present illness Narrative* Ignacia Jack MD - 12/13/2023 10:00 AM EDT Patient ID: Jovani Melendez is a 63 y.o. male. Referring Physician: Shimon Heaton PA-C [id number] [id number] Primary Care Provider: Griselda Krause DO Subjective History of Present Ilness: 62 y.o. presents in neurosurgical consultation from [facility] for cervical stenosis.C/o neck pain and LUE pain, numbness and weakness down to hand for 2 years. SawNeurosurgeon at and has had 2 spinal taps with some improvement. Went to [facility] to be assessed for hydrocephal;us and was told he does not have hydrocephalus. He saw Dr. Lara at the [facility]. Also pain behind left eye. No [...] issues. 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 INTERVAL HISTORY (12/13/2023): Since the last visit, he continues to have severe neck pain, which isslowly getting worse, along with some muffled hearing on the left side. He tried going back to parttime work, but the activity made the neck pain much more severe. He saw a Neurosurgeon at [facility] about the cervical stenosis, but he was unwilling to consider surgery for the neck due to the pontine lesion. He has now been to see a Neurosurgery PA (Solomon Narayanan) at [facility] about the neck, who thought surgical decompression was reasonable. He will see the Neurosurgeon soon to discuss the possible surgery. He has had some Botox injections into the neck and associated muscles, and has some steroid injections due next week. He tried some test shots for an Ablation procedure, but they were too painful. The ROS is as per documentation in the [facility]. Objective BSA: There is no height or weight on file to calculate BSA. There were no vitals taken for this visit. No family history on file. Oncology History No history exists. Jovani Melendez reports that he has been smoking cigarettes. He has never been exposed to tobacco smoke.He has never used smokeless tobacco. He reports no history of alcohol use. He reports no history of drug use. Physical Exam Constitutional: Appearance: Normal [...] MCV 100 11/03/2021 PLT 227 11/03/2021 The new and recent brain MRI scans were reviewed with the patient and family: === 12/13/23 === MR BRAIN TUMOR PERFUSION PROTOCOL W AND WO CONTRAST - Impression - There is again evidence of nonspecific nonenhancing [...] Nate Benavidez 12/13/2023 9:38 AM Dictation workstation: [id number] Impression 1. Abnormal increased T2 signal in the naldo, right greater than left, worrisome for low-grade malignancy such as a glioma. Infectious or inflammatory process cannot be excluded, although this seems unlikely given the absence of enhancement. 2. No acute intracranial hemorrhage, infarction, mass effect or midline shift elsewhere in the brain Assessment/Plan -Jovani has severe cervical stenosis and is now working with a Neurosurgeon to consider a surgical decompression procedure. -Continue with Botox and steroids injections as needed for the stenosis. -He has an incidental pontine lesion noted on MRI that is most consistent with a low-grade glioma, other considerations would include a focal region of demyelination, inflammatory mass, or hamartomatous lesion. -The MRI scans from the past few years suggest the lesion has been fairly stable -- there might have been some subtle enlargement over the past year. -The new brain MRI shows the lesion to be totally stable, along with Perfusion imaging that did notreveal any increased blood flow into the lesion -- consistent with a low-grade tumor or non-neoplastic lesion. -Since there isn't any evidence for growth of the lesion, and it appears to be low-grade, we will hold off on any empiric chemo-RT. -Therefore, we will continue to follow it closely with watchful waiting . -He will return to this clinic in 20 weeks for further evaluation. -Prior to that visit, he will undergo a new MRI brain at [facility]. -I spent > 40 minutes in face to face consultation to review and discuss the above; 50% of whichor more was dedicated to counseling. Ignacia Jack MD documented in this [facility] Work Phone: 1(431) 199-179806-27-2024 Instructions* Patient Instructions* Alondra Escamilla RN - 12/13/2023 10:00 AM EDT Your next appointment will be in 5 months. Please schedule your MRI prior to this visit. Please contact [phone] option 5 then option 2 with any questions or concerns. For any scheduling concerns please call [phone] option 1 documented in this [facility] Work Phone: 1(344) 566-572606-26-2024 History of Present illness Narrative* Solmoon Narayanan PA-C - 12/12/2023 1:00 PM EDT Images from the original note were not included. [facility] [place] Department of Neurological Surgery New Patient Visit History of Present Illness: Jovani Melendez is a 63 y.o. year old male who presents to the spine clinic with 2 and half years of neck pain radiating superiorly into his left head and ear as well as laterally into his shoulder and upper arm. He denies any inciting incident leading to onset of his symptoms though states that he beengradually building during this time. Over use of his arms worsen his symptoms in general while muscle relaxers and pain medications provide some improvement. Currently rates his symptoms at 6/10 though will worsen to 10/10 on occasion. He has progressed through physical therapy previously as well as had multiple interventions via [facility] including trial ablation which did provide short-term relief of his radicular symptoms. He has MRI completed identifying moderate left-sided foraminal stenosis at C3-4 and severe left foraminal stenosis at C6-7. Prior Spine Surgeries: none but does have right sided neck approach for squamous cell carcinoma andlymph node resection Physical Therapy: yes Diabetic: no Osteoporosis: no Patient's BMI is Body mass index is 26.91 kg/m . 14/ systems reviewed and negative other than what is listed in the history of present illness There is no problem list on file for this patient. Past Medical History: Diagnosis Date Personal history of malignant neoplasm of other organs and systems 11/21/2021 History of squamous cell carcinoma Past Surgical History: Procedure Laterality Date OTHER SURGICAL HISTORY 11/21/2021 Excision melanoma Social History Tobacco Use Smoking status: Every Day Types: Cigarettes Passive exposure: Never Smokeless tobacco: Never Substance Use Topics Alcohol use: Never family history is not on file. Current Outpatient Medications: amLODIPine (Norvasc) 10 mg tablet, Take by mouth once daily., Disp: , Rfl: citalopram (CeleXA) 20 mg tablet, Take 1 tablet (20 mg) by mouth once daily., Disp: , Rfl: clopidogrel (Plavix) 75 mg tablet, Take by mouth once daily., Disp: , Rfl: lisinopril 5 mg tablet, Take 1 tablet (5 mg) by mouth once daily., Disp: , Rfl: tiZANidine (Zanaflex) 4 mg capsule, Take 1 capsule (4 mg) by mouth once daily at bedtime., Disp: , Rfl: Allergies Allergen Reactions Keflet Hives Physical Examination General: Well developed, awake/alert/oriented x3, no distress, alert and cooperative Skin: Warm and dry, no lesions, no rashes ENMT: Mucous membranes moist, no apparent injury, no lesions seen Head/Neck: Neck Supple, no apparent injury Respiratory/Thorax: Normal breath sounds with good chest expansion, thorax symmetric Cardiovascular: No pitting edema, no JVD Motor Strength: 4/5 left biceps, triceps, wrist, entertainer or variety artist Muscle Bulk: Decreased muscle bulk left bicep versus right Posture: -- Cervical: Normal -- Thoracic: Normal -- Lumbar : Normal Paraspinal muscle spasm/tenderness present cervical spine midline tenderness present cervical spine Sensation: intact to light touch Hyperreflexia bilateral triceps Results I personally reviewed and interpreted the imaging results which included as in HPI Assessment and Plan: Jovani Melendez is a 63 y.o. year old male who presents to the spine clinic with 2 and half years of neck pain radiating superiorly into his left head and ear as well as laterally into his shoulder and upper arm. He denies any inciting incident leading to onset of his symptoms though states that he beengradually building during this time. Over use of his arms worsen his symptoms in general while muscle relaxers and pain medications provide some improvement. Currently rates his symptoms at 6/10 though will worsen to 10/10 on occasion. He has progressed through physical therapy previously as well as had multiple interventions via [facility] including trial ablation which did provide short-term relief of his radicular symptoms. He has MRI completed identifying moderate left-sided foraminal stenosis at C3-4 and severe left foraminal stenosis at C6-7. Patient has chronic debilitating reticular symptoms from neck to head and arm. He has progressed through physical therapy with no significant improvement. Ablation trials with pain management have provided only short-term improvement. He has x-ray and MRI significant for correlating foraminal stenosis. No further imaging or tests necessary and patient will be scheduled with attending neurosurgeonfor operative discussion. The above clinical summary has been dictated with voice recognition software. It has not been proofread for grammatical errors, typographical mistakes, or other semantic inconsistencies. Thank you for visiting our office today. It was our pleasure to take part in your healthcare. Do not hesitate to call with any questions regarding your plan of care after leaving at M-F 8am-4pm. To clinicians, thank you very much for this kind referral. It is a privilege to partner with you inthe care of your patients. My office would be delighted to assist you with any further consultations or with questions regarding the plan of care outlined. Do not hesitate to call the office or contact me directly. Sincerely, RICH Hernandez PA-C Associate Physician Dining Room Helper, Neurosurgery Clinical Full Charge Bookkeeper [facility] [place] [address] documented in this encounterPro[facility] Work Phone: 1(861) 122-315705-17-2024 NoteHNO ID: [id number] Author: MEMO COLE MD Service: ? Author Type: Physician Type: Progress Notes Filed: 11/03/2023 12:15 Note Text: NAME: Jovani Meelndez CLINIC NO.: [id number] DATE OF SERVICE: November 02, 2023 ([place]) Some elements in this clinic note that are critical to medical decision making have been carefully reviewed and included from a prior clinic note dated: November 03, 2022 ([place]). Referring Provider: Griselda Krause DO Additional Clinicians involved in Jovani Melendez's care: Dr Kimberly Nichole ENT, Dr. Ibarra [place] surgery [facility] DIAGNOSIS: Head and neck cancer ASSESSMENT: 62 [...] 1.8 mm of invasive disease (Stage I, [id number], HPV+ oropharyngeal SCC).resected T1 N1 base of [...] adenopathy is identified. 10/05/2021 - MRI Brain: [facility] There is T2 and T2 flair hyperintense [...] the neck. Interval resolu (more content not included)...[facility]05-17-2024 Instructions* Patient Instructions* Memo Cole MD - 11/02/2023 10:13 AM EDT Scans and labs in 1 year RTC 1 week after documented in this encounterOur [facility] Of [facility]-17-[facility] History of Present illness Narrative* Memo Cole MD - 11/02/2023 9:45 AM EDT Images from the original note were not included. NAME: Jovani Melendez [facility] NO.: [id number] DATE OF SERVICE: November 02, 2023 ([place]is) Some elements in this clinic note that are critical to medical decision making have been carefully reviewed and included from a prior clinic note dated: November 03, 2022 ([place]is). Referring Provider: Griselda Krause DO Additional Clinicians involved in Jovani Melendez's care: Dr Kimberly Nichole ENT, Dr. Ibarra [place] surgery [facility] DIAGNOSIS: Head and neck cancer ASSESSMENT: 62 [...] 1.8 mm of invasive disease (Stage I, [id number], HPV+ oropharyngeal SCC).resected T1 N1 base of [...] herniation, spinal stenosis or impingement upon the cervicalcord. 2. Multilevel degenerative changes with mild disc [...] adenopathy is identified. 10/05/2021 - MRI Brain: [facility] There is T2 and T2 flair hyperintense [...] in size of the known left upper lobenodule. No new or enlarging nodules are seen. No evidence of intrathoracic lymphadenopathy. Subtle centrilobular opacities in the bilateral upper lobes, suggestive of a respiratory bronchiolitis. 01/30/2019 - Neck dissection at [facility] Base of tongue did note a squamous cell carcinoma 1.8 mm, which was HPV positive. 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 The involvednode had 4.5 cm of invasive disease. 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 12/20/2018 - PET/CT: A hypermetabolic right level IIA lymph node, suspicious for malignancy. There is nonspecific asymmetric right tonsillar FDG activity, suggest direct visualization. Known 1 cm part-solid left upper lobe nodule demonstrate minimal FDG uptake, cannot exclude low-grade malignancy. No FDG avid hilar or m ediastinal lymphadenopathy. Minimal focal FDG uptake in a normal sized prevascular lymph node, could be secondary to inflammation. 11/12/2017 - CT Chest: Shows enlarging right jugulodigastric lymph node 2.7 x 1.7 x 1.8 cm. Moderate mucosal thickening ofthe right maxillary sinus with right maxillary sinusitis. [...] 2020: Doing well, still smokes, works at [employer]. Reviewed scans and there is no evidence [...] Resp 16 Ht 5' 7.165 (1.71m) Wt 175lb 11.3 oz (79.7kg) SpO2 99% BMI 27.38 [...] take 1 tablet orally daily NEEDED FOR PAINMUST LAST 30 DAYS ezetimibe (ZETIA) 10 mg [...] which included preparing to see the patient, numy-kr-tqsk patient care, completing clinical documentation, performing a medically appropriate examination, counseling and educating the patient/family/caregiver, ordering medications, tests, or p rocedures, independently interpreting results (not separately reported), communicating results to the patient/family/caregiver, and care coordination (not separately reported). Memo Cole MD, CPE Hematology and Oncology Services Provided at: [place], [place] Scribe Attestation: This note was scribed [...] my direction. CC: Griselda Krause, DO [address] [facility] [id number] [address] Harris [facility]. Dr. Nichole ENT Dr. Ibarra CT surgery [facility]. documented in this encounterOur Lady Of Mercy [facility]05-13-2024 Evaluation note* Author Shilpi Lantigua [facility] Authored October 29, 2023 10:32 am Sooner if needed, the ER if concerns,The above note written by Shilpi Lantigua LPN acting as human recorder, note dictated by Dr. Griselda Krause [facility] Work Phone: 1(939) 341-413605-10-2024 NoteHNO ID: [id number] Author: SALLY DOYLE RT(R) Service: ? Author Type: Technologist [...] PATIENT PRESENTS WITH AN IMPLANTABLE OR ATTACHED HISTOLOGY ASSISTANT: No RADIOLOGY DEPARTMENT: CT; Exam(s) Completed: Chest and Neck PERIPHERAL IV DATA: Site assessment: Clean,Dry and Intact, Site disposition Discontinued SIGNED BY: RT Craig(R) October 26, 2023 10:07 [facility]05-10-2024 NoteHNO ID: [id number] Author: LIN DA SILVA RN Service: ? Author Type: [...] IV SITE APPEARANCE: Clean,Dry and Intact SIGNATURE: Lin Da Silva RN PATIENT NAME: Jovani Melendez DATE: October 26, 2023 TIME: 9:30 [facility]05-10-2024 History of Present illness Narrative* Lin Da Silva RN - 10/26/2023 9:45 AM [...] IV SITE APPEARANCE: Clean,Dry and Intact SIGNATURE: Lin Da Silva RN PATIENT NAME: Jovani Melendez DATE: October 26, 2023 TIME: 9:30 AM * Sally Doyle, RT(R) - 10/26/2023 9:45 AM EDT [...] PATIENT PRESENTS WITH AN IMPLANTABLE OR ATTACHED HISTOLOGY ASSISTANT: No RADIOLOGY DEPARTMENT: CT; Exam(s) Completed: Chest and Neck PERIPHERAL IV DATA: Site assessment: Clean,Dry and Intact, Site disposition Discontinued SIGNED BY: RT Craig(R) October 26, 2023 10:07 AM documented in this encounterOur Lady Of [facility]04-19-2024 History of Present illness Narrative* Ignacia Jack [...] hydrocephalus. He saw Dr. Lara at the [facility]. Also pain behind left eye. No [...] issues. 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 Ignacia Jack MD documented in this [facility] Work Phone: 1(352) 140-796904-19-2024 Instructions* Patient Instructions* Adriana Thomas RN - 10/05/2023 9:[address] Jack will present your case at Tumor Board next Sunday. Someone from the office will call you that day or about your plan. Please call us with any questions or concerns at [phone] opt. 5, opt. 2 For scheduling concerns please call [phone] option 1 documented in this encounterProMedica [facility] Work Phone: 1(262) 746-652402-28-2024 Evaluation note* Author Lin Olmosolson [facility] Authored August 15, 2023 5:19pm The above note written by Serafin Flood acting as human recorder, note dictated by Dr. Griselda Krause . [facility] Work Phone: 1(855) 688-373902-28-2024 Evaluation note* [facility] Authored August 15, 2023 5:19pm The above note written by Serafin Flood acting as human recorder, note dictated by Dr. Griselda Krause . Author Shilpi Lantigua [facility] Authored October 29, 2023 10:32 am Sooner if needed, the ER if concerns,The above note written by Shilpi Lantigua LPN acting as human recorder, note dictated by Dr. Griselda Krause [facility] Work Phone: 1(318) 592-396501-15-2024 Evaluation note* Encounter Date Diagnosis Assessment Notes [...] continue to follow with them as scheduled. [facility] Other 12-14-2023 Evaluation note* Encounter Date Diagnosis Assessment Notes Treatment Notes Treatment Clinical Notes May, PAD (peripheral artery disease) (ICD-10 - I73.9) Patient recently had angioplasty for occlusion of right iliac artery that was discovered by resource conservation specialist. He has been doing well since the [...] work before I provide him that consent. [facility] Other 12-13-2023 Evaluation note* Encounter Date Diagnosis [...] I will see him in 3 months. [facility] Other 11-28-2023 Evaluation note* Encounter Date Diagnosis [...] 3 months Apr, Lightheadedness (ICD-10 - R42) [facility] Other 11-20-2023 [facility]* Encounter Date Diagnosis Assessment [...] questions were addressed and consent was obtained. [facility] Other 11-14-2023 Evaluation note* Encounter Date Diagnosis [...] M54.2) The patient is now following with [facility]. He states he has an upcoming cervical epidural scheduled. The patient remains out of work on [employer] disability , he voices interest in returning to work soon. Apr, PAD (peripheral artery disease) (ICD-10 - I73.9) Arterial studies ordered by resource conservation specialist indicating peripheral artery disease. The patient does report lower extremity pain and heaviness and I recommend it would be beneficial to consult with a vascular specialist. The patient is in agreement, therefore a referral was initiated. A CTA has been ordered by neurologist , appointment pending [facility] scheduling. Apr, Hyperlipidemia (ICD-10 - E78.5) Blood [...] vocies understanding. We will continue to monitor. [facility] Other 10-26-2023 Evaluation note* Encounter Date Diagnosis Assessment Notes Treatment Notes Treatment Clinical Notes Mar, Claudication (ICD-10 - I73.9) [facility] Other 10-25-2023 Evaluation note* Encounter Date Diagnosis [...] 4 weeks Mar, Lightheadedness (ICD-10 - R42) [facility] Other 10-24-2023 Evaluation note* Encounter Date Diagnosis Assessment Notes Treatment Notes Treatment Clinical Notes Mar, Elevated blood pressure reading (ICD-10 - R03.0) [facility] Other 09-28-2023 Evaluation note* Encounter Date Diagnosis [...] infection. Feb, Burning sensation (ICD-10 - R20.8) [facility] Other 09-21-2023 Evaluation note* Encounter Date Diagnosis [...] index finger. We will continue to monitor. [facility] Other 07-13-2023 Hospital Discharge instructions Diet Plan/Instructions [...] * Discharge Physician: : Lima Joseph MD ([id number]) - Anesthesiology, Pain Management * Discharge Physician Phone: : [phone] [facility] [address], [place] [address] Special Plan/Instructions for Discharge from 12/27/2022 10:26 AM: * Special Instructions : Spoke to patient Wound Care Instruction for Discharge from 12/27/2022 10:26 AM: * Special Instructions : Spoke to patient [facility] 06-20-2023 Evaluation note* Encounter Date Diagnosis Assessment [...] sent to the office to be completed. [facility] Other 05-12-2023 History of Present illness Narrative* Sally Doyle, RT(R) - 10/27/2022 10:45 AM EDT [...] with PATIENT DISCHARGED TO: Ambulatory patient, left [place] department area. A Diagnostic radioactive procedure has taken place, with no further precautions necessary other than routine body substance precautions. More information regarding radiation safety can be found usingthis link: [email or web address] SIGNATURE: RT Craig(Neisha) PATIENT NAME: Jovani Melendez DATE: October 27, 2022 TIME: 11:55 AM PAGER/CONTACT #: documented in this encounterOur Lady Of [facility]04-07-2023 History of Present illness Narrative* RT Julio(R) [...] 2022 TIME: 2:39 PM documented in this encounterOur Lady Of [facility]04-05-2023 Miscellaneous Notes* Telephone Encounter - Akash Menezes [...] return call ? Yes documented in this encounterOur Lady Of [facility]cy [facility]03-29-2023 Instructions* Patient Instructions* Kelly Perez PA-C - [...] perform on same dariusz. documented in this encounterOur Lady Of Mercy [facility]03-29-2023 Nurse Note* Antonia Tripathi MA - 09/13/2022 10:55 AM EDT Additional intake questions: Has the patient had fever, nausea, vomiting, diarrhea, constipation, fatigue for > 1 week? Yes, diarrhea ( 3 times in last 24 hours), fatigue, and Provider Notified Does the patient have a decreased appetite? No Does patient want to see a Wire Drawing Die Maker? No (yes to any of above refer patient to schedulers for dietitian appointment) ) Does patient have any new or increased numbness or tingling of extremities? Yes, left fingers tingling, pain in r calf Is patient interested in fertility information? No Does patient need any prescription refills? No Does patient have an advanced directive in place? No, Patient referred to [facility] Electronically Signed By: Antonia Tripathi MA documented in this encounterOur Lady Of Mercy [facility]03-29-2023 History of Present illness Narrative* Kelly Perez PA-C - 09/13/2022 10:44 AM EDT This note was created using D[employer] Technology[employer]. Subjective Jovani Melendez is a 61 year [...] or pronator drift. Coordination: Romberg sign negative. Mcndxq-Eijs-Wwrghu Test normal. Gait: Gait abnormal. Comments: Slightly [...] which included preparing to see the patient, fonc-gq-nsrg patient care, completing clinical documentation, obtaining and/or reviewing separately obtained history, performing a medically appropriate examination, counseling and educating the pat ient/family/caregiver, ordering medications, tests, or procedures, communicating with other HCPs (not separately reported), independently interpreting results (not separately reported), communicatingresults to the patient/family/caregiver, and care coordination (not separately reported). documented in this encounterOur Lady Of Mercy [facility]03-16-2023 Evaluation note* Encounter Date Diagnosis Assessment Notes [...] her mid twenties. He will see the AIRCRAFT DE ICER INSTALLER at Dr. Cadena's office today, and will see the [facility] 09/13/22. I do feel pt needs his FMLA extended until 12/16/22. I encouraged him to continue to follow with these doctors, and we will continue to monitor. [facility] Other 02-14-2023 Evaluation note* Encounter Date Diagnosis [...] pain medication and fever reducers as needed. [facility] Other 01-11-2023 Evaluation note* Encounter Date Diagnosis Assessment Notes Treatment Notes Treatment Clinical Notes Jun, Other complicated headache syndrome (ICD-10 - G44.59) [facility] Other 12-09-2022 Evaluation note* Encounter Date Diagnosis [...] check on him again in 1 month. [facility] Other 10-30-2022 Hospital Discharge instructions Additional Instructions [...] see how you are doing. [facility] Work Phone: 1(502) 107-890910-10-2022 Miscellaneous Notes* Telephone Encounter - Memo Cole MD - 03/27/2022 3:54 PM EDT Good with me * Telephone Encounter - Asya Reynolds RN - 03/27/2022 2:17 PM EDT Informed patient of your recommendations. He states that he is seeing neurology in [place] and they do not feel he needs [...] neurosurgeon. Asya Reynolds RN documented in this encounterOur Lady Of Mercy [facility]09-29-2022 Miscellaneous Notes* Telephone Encounter - Pamela Nascimento APRN.FIBER MACHINE TENDER - 03/16/2022 2:51 PM EDT Time Frame: Next available Provider: Intra-axial neurosurgeon & Neuro-Oncology (same day) Referring: Memo Cole MD Please instruct patient to hand carry/ upload images prior to appt Dx: Low grade glioma Patient: Jovani Melendez Address: Jovani Melendez [id number] [place] [address] Per Triage: Jovani Melendez is a 61 year old male that requests evaluation of previously diagnosed possible low grade glioma. Patient expectations: Second opinion Tumor Specifics: Location: brain Previous Evaluations: MRI w/wo contrast (10/05/21): 10/05/2021 MRI Brain [facility] Impression: 1. There is T2 and T2 [...] (HCC) [C71.9 (ICD-10-CM)] Order Questions Question Answer [facility] Brain Tumor [facility] Epic access? Yes documented in this encounterOur Lady Of Mercy [facility]09-29-2022 Evaluation note* Encounter Date Diagnosis Assessment Notes [...] see if this gives him some relief [facility] Other 08-15-2022 Evaluation note* Encounter Date Diagnosis [...] again next week. We are awaiting for [facility] to fax over the consult and MRI results. Jan, Neck pain (ICD-10 - M54.2) The patients neck pain is persistant but the headache has improved with a medication change. Discussed with Dr. Cadena his persistent neck pain, may need MRI of his neck and/or EMG. Due to his multiple other medications did hold off on any pain medications. [facility] Other 07-11-2022 Evaluation note* Encounter Date Diagnosis [...] blood pressure was elevated upon check in. [facility] Other 06-20-2022 Evaluation note* Encounter Date Diagnosis [...] rule out other causes of his symptoms. [facility] Other 05-24-2022 Evaluation note* Encounter Date Diagnosis [...] will complete the necessary medical disability forms. 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 Narayan, and he is now referring on to Dr. Jonny Vigil at the [facility] for 2nd opinion. Reviewed consult note from [...] this medication. Will continue to follow up [facility] Other 05-12-2022 History of Present illness Narrative* Memo Cole MD - 10/27/2021 5:05 PM EDT Images from the original note were not included. NAME: Jovani Melendez CLINIC NO.: [id number] DATE OF SERVICE: October 27, 2021 Some elements in this clinic note that are critical to medical decision making have been carefully reviewed and included from a prior clinic note dated: October 13, 2021 Referring Provider: Griselda Krause, DO Additional Clinicians involved in Jovani Melendez's care: Dr Kimberly Nichole ENT, Dr. 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 Dr. Nichole ENT Dr. Ibarra CT surgery [facility]. [facility]* Encounter Date Diagnosis Assessment Notes [...] him on to see Dr. Jonny Vigil. [facility] Other 05-04-2022 Miscellaneous Notes* Telephone Encounter - Haily Jovel [facility] - 10/19/2021 12:56 PM EDT Called [facility] Neuro [facility] spoke with Leslee. She states they have received patient records/referral and have patient scheduled to see Dr Narayan on 10/24. Haily Jovel [facility] * Telephone Encounter - Asya Gramajo [facility] - 10/18/2021 10:34 AM EDT Records faxed. * Telephone Encounter - Haily Jovel [facility] - 10/13/2021 12:24 PM EDT Noelle: Information ready for you. Haily Jovel Pss * Telephone Encounter - Antonia Mcguire - 10/13/2021 10:33 AM EDT Referral to neurosurgery - Dr. Narayan or [facility] Noelle/Layo: Can you please refer patient and follow up? Thanks! Antonia Mcguire documented in this encounter[facility] History of Present illness Narrative* Memo Cole MD - 10/13/2021 10:19 AM EDT Images from the original note were not included. NAME: DilanJovani [facility] NO.: [id number] DATE OF SERVICE: October 13, 2021 Some elements in this clinic note that are critical to medical decision making have been carefully reviewed and included from a prior clinic note dated:October 14, 2020 Referring Provider: Griselda Krause, Additional Clinicians involved in Jovani Melendez's care: Dr Kimberly Nichole ENT, Dr. 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 Reviewed scans and there is no evidence [...] adenopathy is identified. 4. 10/05/2021 MRI Brain [facility] Impression: 1. There is T2 and T2 [...] and neck (HCC) Memo Cole MD, CPE [place], [place] CC: Griselda Krause, [address] [address] [address] Kimberly [facility] ENT[address] Dr. Nichole ENT Dr. Ibarra [facility]. documented in this encounter[facility] Miscellaneous Notes* Telephone Encounter - Memo Cole [...] steps. Asya Kumar RN documented in this encounterOur [facility] History of Present illness Narrative* Marilyn Hernandez [...] October 06, 2021 TIME: 8:09 AM * Sally Doyle RT(R) - 10/06/2021 8:00 AM EDT [...] 06, 2021 8:07 AM documented in this encounterOur [facility] Evaluation note* Encounter Date Diagnosis Assessment Notes [...] to continue with monitoring diet and exercise. [facility] Other 03-28-2022 Evaluation note* Encounter Date Diagnosis Assessment Notes Treatment Notes Treatment Clinical Notes Aug, Anxiety and depression (ICD-10 - F41.8) [facility] Other 01-13-2022 Evaluation note* Encounter Date Diagnosis Assessment Notes Treatment Notes Treatment Clinical Notes Jun, Sinusitis (ICD-10 - J32.9) I did prescribe the above medications and work note provided. [facility] Other 01-12-2022 Evaluation note* Encounter Date Diagnosis Assessment Notes Treatment Notes Treatment Clinical Notes Jun, Sinus pressure (ICD-10 - J34.89) Patient advised of negative results. Encouraged him to call if symtpoms persist or worsen, he verbalized understanding. [facility] Other 11-02-2021 Evaluation note* Encounter Date Diagnosis Assessment Notes Treatment Notes Treatment Clinical Notes Apr, Sinus congestion (ICD-10 - R09.81) [facility] Other 10-28-2021 Evaluation note* Encounter Date Diagnosis [...] Encouraged patient to continue with their efforts. [facility] Other 12-01-2016 History general Narrative - Reported* [...] surgery 02/04 19 Hospitalization History see above [facility] Other 12-01-2016 History general Narrative - Reported* [...] 02/04 19 Surgical History Spinal tap at [facility] 11/07/2021 Hospitalization History see above [facility] Other 12-01-2016 History general Narrative - Reported* [...] 02/04 19 Surgical History Spinal tap at [facility] 11/07/2021 Hospitalization History see above [facility] Other 12-01-2016 History general Narrative - Reported* [...] dissection 01/2019 Surgical History Spinal tap at [facility] 11/07/2021 Hospitalization History see above [facility] Other 12-01-2016 History general Narrative - Reported* [...] dissection 01/2019 Surgical History Spinal tap at [facility] 11/07/2021 Surgical History LP at [facility] 08/2022 Hospitalization History see above [facility] Other 12-01-2016 History general Narrative - Reported* [...] dissection 01/2019 Surgical History Spinal tap at [facility] 11/07/2021 Surgical History LP at [facility] 08/2022 Hospitalization History see above [facility] Other 12-01-2016 History general Narrative - Reported* [...] dissection 01/2019 Surgical History Spinal tap at [facility] 11/07/2021 Surgical History LP at [facility] 08/2022 Surgical History angioplasty right iliac artery 04/2023 Hospitalization History see above [facility] Other 05-19-2009 History of Present illness Narrative* [...] He saw Dr. Ba a neurologist in [facility]. * He describes his vision as seeing 1-1/2 . He describes this does not seem quite to but finding a time lab between moving his eyes and having the visual change. [facility] Work Phone: chief complaint+Reason for visit Narrative* Chief Complaint 2 month 2 month f/u Reason for Visit Cervical spondylosis History of COVID-19 Nicotine dependence with current use SCC (squamous cell carcinoma) Nicotine dependence with current use Osteoarthritis cervical spine [facility] Work Phone: Clinical Notes [facility] [place] + Plan note [facility] Evaluation noteNo Assessments Information Available [facility]* Diagnosis Glioma of brain (HCC)- Primary Malignant neoplasm of brain, unspecified site Lung nodules Other nonspecific abnormal finding of lung field 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) Malignant neoplasm of head, face, and neck documented in this encounter [facility] Diagnosis 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 Malignant neoplasm of head, face, and neck Lung nodules Other nonspecific abnormal finding of lung field Malignant neoplasm of head, face and neck (HCC) Malignant neoplasm of head, face, and neck documented in this encounter [facility] noteNo InformationNort [employer] Other Evaluation noteNo assessment information available [facility] Work Phone: Evaluation note* Diagnosis Onset Date Resolution Status Migraine acute [facility] Work Phone: Evaluation note* Diagnosis NPH (normal pressure hydrocephalus) (HCC)- Primary Idiopathic normal pressure hydrocephalus (INPH) [facility]* Diagnosis 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HCC)- Primary NPH (normal pressure hydrocephalus) (HCC) Idiopathic normal pressure hydrocephalus (INPH) documented in this encounter [facility]* Diagnosis 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HCC) NPH (normal pressure hydrocephalus) (HCC) Idiopathic normal pressure hydrocephalus (INPH) documented in this encounter [facility]* Diagnosis Onset Date Resolution Status Anxiety and depression acute Essential hypertension acute Hyperlipidemia acute Osteoarthritis cervical spine acute PAD (peripheral artery disease) acute [facility] Work Phone: Evaluation note* Diagnosis 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 Griselda Krause. 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) Malignant neoplasm of head, face, and neck documented in this encounter [facility] note* Diagnosis Malignant neoplasm of head, face and neck (HCC) Malignant neoplasm of head, face, and neck Lung nodules Other nonspecific abnormal finding of lung field 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) Malignant neoplasm of head, face, and neck Localized swelling, mass or lump of neck Swelling, mass, or lump in head and neck documented [facility] this encounter [facility]* Diagnosis Cervical radiculopathy- Primary Brachial neuritis or radiculitis nos Cervical radiculopathy Brachial neuritis or radiculitis nos Senile osteoporosis Senile osteoporosis documented in this encounter [facility] Work Phone: [phone] note* Diagnosis Cervical radiculopathy- Primary Brachial neuritis or radiculitis nos Status post cervical spinal fusion Arthrodesis status Acute postoperative pain Other acute postoperative pain Muscle spasms of neck documented in this encounter [facility] Work Phone: [phone] note* Diagnosis Other nerve root and plexus disorders- Primary Cervical paraspinal muscle spasm Spasm of muscle Cervical stenosis of spinal canal Spinal stenosis in cervical region [facility] Diagnosis Cervical radiculopathy- Primary Brachial neuritis or radiculitis nos Occipital neuralgia of left side Balance problem Abnormality of gait documented in this encounter [facility] Work Phone: [phone] note* 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 [facility] Work Phone: Evaluation note* 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 [facility] Work Phone: [phone] note* Diagnosis Cervical radiculopathy- Primary Brachial neuritis or radiculitis nos Senile osteoporosis documented in this encounter [facility] Work Phone: [phone] note* Diagnosis Cervical radiculopathy Brachial neuritis or radiculitis nos Senile osteoporosis Cervical radiculopathy Brachial neuritis or radiculitis nos Senile osteoporosis Cervical radiculopathy Brachial neuritis or radiculitis nos Senile osteoporosis documented in this encounter [facility] Work Phone: [phone] note* Diagnosis Cervical radiculopathy Brachial neuritis or radiculitis nos Senile osteoporosis Cervical radiculopathy Brachial neuritis or radiculitis nos Cervical radiculopathy Brachial neuritis or radiculitis nos Senile osteoporosis documented in this encounter [facility] Work Phone: Evaluation note* Diagnosis Cervical radiculopathy Brachial neuritis or radiculitis nos Senile osteoporosis Cervical radiculopathy Brachial neuritis or radiculitis nos Cervical radiculopathy Brachial neuritis or radiculitis nos Senile osteoporosis documented in this encounter [facility] Work Phone: Evaluation note* Diagnosis Status post cervical spinal fusion- Primary Arthrodesis status documented in this encounter [facility] Work Phone: Evaluation note* Diagnosis Nerve root and plexus disorder, unspecified- Primary documented in this encounter [facility] HealthcareHospital Discharge instructions Additional Instructions Obtain Elsy pot and perform nasal irrigations twice a day[facility] Work Phone: Reason for referral (narrative)* Diagnostic Procedure Only (Routine) - Closed Specialty Diagnoses / Procedures Referred By Contac dimitry Referred To Contact CT IMAGING Diagnoses Malignant neoplasm of head, face and neck (HCC) Lung nodules 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) Localized swelling, mass or lump of neck Procedures CT CHEST W IVCON CAT SCAN OF CHEST CONTRAST Memo Cole MD [address] [place] [address] [place] [address] [id number] Referral ID Status Reason Start Date Expiration Date V isits Requested Visits Authorized [id number] Closed Auto-Generate d Referral 09/23/2021 11/22/2021 1 1 * Diagnostic Procedure Only (Routine) - Closed Specialty Diagnoses / Procedures Referred By Contac t Referred To Contact CT IMAGING Diagnoses Malignant neoplasm of head, face and neck (HCC) Lung nodules 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) Localized swelling, mass or lump of neck Procedures CT NECK SOFT TISSUE W IVCON CONTRAST CAT OF NECK TISSUE Memo Cole MD [address] [place] [address] [place] [address] [id number] Referral ID Status Reason Start Date Expiration Date V isits Requested Visits Authorized [id number] Closed Auto-Generate d Referral 09/23/2021 11/22/2021 1 1 [facility] for visit Narrative* Auth/Cert Specialty Diagnoses / Procedures Referred By Contac t Referred To Contact Diagnoses Cervical radiculopathy Senile osteoporosis Cervical radiculopathy [M54.12] Senile osteoporosis [M81.0] Procedures [place] ARTHRD ANT INTERBODY DECOMPRESS CERVICAL BELW C2 MN ARTHRD ANT INTERBODY DECOMPRESS CERVICAL BELW C2 MN ARTHRD ANT INTERDY CERVCL BELW C2 EA ADDL NTRSPC MN ALLOGRAFT FOR SPINE SURGERY ONLY STRUCTURAL [place] MICROSURG TQS REQ USE OPERATING MICROSCOPE Fusion Spine Anterior Cervical and Discectomy C5-6, C6-7 Camille Harris MD [address] [facility], [address] [place] [address] Phone: tel: fax: [facility] Faiza M[place] [id number] [address] fax: Referral ID Status Reason Start Date Expiration Date Visits Re quested Visits Authorized [id number] 1 1 [facility] Work Phone: Summary Purpose Family History [...] Documents on File Type Date Recorded Patient Jinrikisha Driver Expl anation Living Will 10/05/2023 9:39 AM Documents on File Type Date Recorded Patient Jinrikisha Driver Expl anation Living Will 10/05/2023 9:39 AM Date Activated Date Inactivated Comments 04/09/2024 6:57 PM Question Answer Comments Plan of Care: Code Status Discussion Completed Decision Maker: Patient Date Activated Date Inactivated Comments 04/09/2024 11:50 AM 04/09/2024 6:57 PM Question Answer Comments Plan of Care: Code Status Discussion Completed Decision Maker: Patient Chief Complaint and Reason for Visit Chief [...] with current use SCC (squamous cell carcinoma) Chief Complaint Admit Date 2 month f/u April 01, 2024 1 0:17am 4 Months April 28, 2024 9:39am Reason for Visit Admit Date Essential hypertension April 01 10:17am Nicotine dependence with current use Oct roderick 2023 10:17am Osteoarthritis cervical spine April 012023 10:17am Cardiac arrhythmia April 28, 2024 9:39am Essential hypertension April 28 9:39am Hyperlipidemia April 28, 2024 9:39am Glioma of brain April 28, 2024 9:39am PAD (peripheral artery disease) April 28, 2024 9:39am Chief Complaint Admit Date 2 month f/u April 01, 2024 1 0:17am 4 Months April 28, 2024 9:39am M54.12 Z98.1 June 24, 2024 1: 40pm Chief Complaint Admit Date 4 Months April 28, 2024 9:39am M54.12 Z98.1 June 24, 2024 1: 40pm 3 Month FU July 03, 2024 9 :23am Reason for Visit Admit Date Cardiac arrhythmia April 28, 2024 9:39am Essential hypertension April 28 9:39am Hyperlipidemia April 28, 2024 9:39am Glioma of brain April 28, 2024 9:39am PAD (peripheral artery disease) April 28, 2024 9:39am Hyperlipidemia July 03, 2024 9 :23am S/P cervical discectomy July 03 9:23am Screening for prostate cancer July 032024 9:23am Assessments No Assessments Information Available Reason for Referral Specialty Diagnoses / Procedures Referred By Contac t Referred To Contact Neurosurgery Diagnoses Glioma of brain (HCC) Procedures CONSULT TO NEUROSURGERY OFFICE/OUTPATIENT [facility] HIGH MDM 60-74 MINUTES eMmo Cole MD [address] [place] [address] [place] [address] Referral ID Status Reason Start Date Expiration Date Visits Requested Visits Authorized [id number] Authorized PCP Requested Referral 10/13/2021 10/13/2022 1 1 Specialty Diagnoses / Procedures Referred By Contac t Referred To Contact CT IMAGING Diagnoses Lung nodules Procedures CT CHEST W IVCON DIAGNOSTIC COMPUTED TOMOGRAPHY THORAX W/CONTRAST Memo Cloe MD [address] [place] [address] [place] [address] Ct Imaging Referral ID Status Reason Start Date Expiration Date Visits Requested Visits Authorized [id number] Pending Review Auto-Generat ed Referral 10/30/2022 11/29/2022 1 1 Specialty Diagnoses / Procedures Referred By Contac t Referred To Contact CT IMAGING Diagnoses Malignant neoplasm of head, face and neck (HCC) Procedures CT NECK SOFT TISSUE W IVCON CT SOFT TISSUE NECK W/CONTRAST MATERIAL Memo Cole MD [address] [place] [address] Ct Imaging Referral ID Status Reason Start Date Expiration Date Visits Requested Visits Authorized [id number] Pending Review Auto-Generat ed Referral 10/30/2022 11/29/2022 1 1 Reason *FU 10/31 Evaluate and Treat Brainstem Lesion 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) Referral Organization [facility] urosurgery Referring Provider First Name Sheng Referring Provider Last Name Wyatt Referring Provider Specialty Neurosurger y Referred Organization [facility] Referred Provider Jonny Vigil Referred Address [address] [place] [address] [place],[address] Referred Provider Specialty Neurological Surgery Referral Priority Routine General Notes Fore, Linnea M 022 02:09:54 PM >Received and fax referral today Reason consult and treat (p t is willing to see him in bureau, if not then [facility]) 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) Diagnosis 2 Cervical pain (neck) (M54.2) Diagnosis 3 Pressure in head (R5 1.9) Referral Organization [facility] Referring Provider First Name Griselda Referring Provider Last Name Nelida Referring Provider Specialty Family Prac henny Referred Organization [facility] Referred Provider Elvi Cadena Referred Address [address] [facility] [facility],[place], [place],[address] Referral Priority Routine Specialty Diagnoses / Procedures Referred By Roverto moraes Referred To Contact MR IMAGING Diagnoses 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HCC) Procedures MRI BRAIN WO/W IVCON MRI BRAIN BRAIN STEM W/O W/CONTRAST MATERIAL Kelly Perez, BILLY [address] [place] [address] Mr Imaging Referral ID Status Reason Start Date Expiration Date Visits Requested Visits Authorized [id number] Authorized Auto-Generat ed Referral 09/20/2022 10/20/2023 1 1 Referral ID Status Reason Start Date Expiration Date V isits Requested Visits Authorized [id number] Closed Auto-Generate d Referral 09/20/2022 10/20/2023 1 1 Reason pt requesting n ot Dr. Verma, but can see other providers from that group evaluate and treat tinnitus and balance issues Diagnosis 1 Tinnitus of both ear s (H93.13) Diagnosis 2 Balance disorder (R2 6.89) Referral Organization [facility] Referring Provider First Name Lilliam Referring Provider Last Name Kamla Referring Provider Specialty Cardiovascu lar Disease Referred Organization [facility] Referred Provider Manuela Ballesteros Referred Address ,[place], [place],[address] Referred Provider Specialty Ear, Nose an d Throat Referral Priority Routine General Notes Yessica Brown 12:40:36 PM >received today, pt has medicaid insurance, will send to Dr. Ballesteros, attachments made, waiting for notes to be locked Reason consult and treat Diagnosis 1 PAD (peripheral arnie ry disease) (I73.9) Referral Organization [facility] Referring Provider First Name Griselda Referring Provider Last Name Nelida Referring Provider Specialty [facility] Prac henny Referred Organization [facility] Referred Provider Filipe Hess Referred Address [address] [facility],[address],[place], [place],[address] Referred Provider Specialty Vascular Abdirahman yvon Referral Priority Routine General Notes Christiano, Linnea M 023 11:58:24 AM >Received today and sent P2P Specialty Diagnoses / Procedures Referred By Contac t Referred To Contact CT IMAGING Diagnoses 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) Procedures CT CHEST W IVCON DIAGNOSTIC COMPUTED TOMOGRAPHY THORAX W/CONTRAST Memo Cole MD [address] [place] [address] [place] [address] [place] [id number] Referral ID Status Reason Start Date Expiration Date Visits Requested Visits Authorized [id number] Authorized Auto-Generat ed Referral 11/01/2024 12/01/2024 1 1 Specialty Diagnoses / Procedures Referred By Contac t Referred To Contact CT IMAGING Diagnoses 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) Procedures CT NECK SOFT TISSUE W IVCON CT SOFT TISSUE NECK W/CONTRAST MATERIAL Memo Cole MD [address] [place] [address] [place] [address] [place] [address] Referral ID Status Reason Start Date Expiration Date Visits Requested Visits Authorized [id number] Authorized Auto-Generat ed Referral 11/01/2024 12/01/2024 1 1 Referral ID Status Reason Start Date Expiration Date V isits Requested Visits Authorized [id number] Closed Auto-Generate d Referral 10/26/2023 06/17/2024 1 1 Referral ID Status Reason Start Date Expiration Date V isits Requested Visits Authorized [id number] Closed Auto-Generate d Referral 10/26/2023 06/17/2024 1 1 Specialty Diagnoses / Procedures Referred By Contac t Referred To Contact CT IMAGING Diagnoses Lung nodules Procedures CT CHEST W IVCON DIAGNOSTIC COMPUTED TOMOGRAPHY THORAX W/CONTRAST Memo Cole MD [address] [place] [address] [place] [address] [place] [address] Referral ID Status Reason Start Date Expiration Date V isits Requested Visits Authorized [id number] Closed Auto-Generate d Referral 10/30/2022 11/29/2022 1 1 Specialty Diagnoses / Procedures Referred By Contac t Referred To Contact CT IMAGING Diagnoses Malignant neoplasm of head, face and neck (HCC) Procedures CT NECK SOFT TISSUE W IVCON CT SOFT TISSUE NECK W/CONTRAST MATERIAL Memo Cole MD [address] [place] [address] [place] [address] [address] [facility] [place] [address] Referral ID Status Reason Start Date Expiration Date V isits Requested Visits Authorized [id number] Closed Auto-Generate d Referral 10/30/2022 11/29/2022 1 1 Specialty Diagnoses / Procedures Referred By Contac t Referred To Contact Radiology 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 [place] [address] [place] [address] Referral ID Status Reason Start Date Expiration Date Visits Requested Visits Authorized [id number] Pending Review Perform Procedure 12/13/2023 12/12/2024 1 1 Specialty Diagnoses / Procedures Referred By Contac t Referred To Contact Radiology 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 tumor perfusion protocol w and wo IV contrast Shimon Heaton PA-C [address] [place] [id number] Referral ID Status Reason Start Date Expiration Date Visits Requested Visits Authorized [id number] Authorized Perform Procedure 10/24/2023 10/23/2024 1 1 Specialty Diagnoses / Procedures Referred By Contac t Referred To Contact Radiology Diagnoses Cervical radiculopathy Procedures XR cervical spine complete 6+ views Camille Harris MD [address] [facility], [address] [address] Referral ID Status Reason Start Date Expiration Date Visits Requested Visits Authorized [id number] Authorized Perform Procedure 01/03/2024 01/02/2025 1 1 Specialty Diagnoses / Procedures Referred By Contac t Referred To Contact Radiology Diagnoses Senile osteoporosis Procedures XR DEXA bone density axial skeleton w VFA Camille Harris MD [address] [facility], [address] [address] Referral ID Status Reason Start Date Expiration Date Visits Requested Visits Authorized [id number] Pending Review Perform Procedure 01/03/2024 01/02/2025 1 1 Specialty Diagnoses / Procedures Referred By Contac t Referred To Contact Diagnoses Cervical radiculopathy Senile osteoporosis Procedures ECG 12 lead Camille Harris MD [address] [facility], [address] [place] [address] Referral ID Status Reason Start Date Expiration Date V isits Requested Visits Authorized [id number] Authorized 01/09/2024 01/08/2025 1 1 Specialty Diagnoses / Procedures Referred By Contac t Referred To Contact Radiology Diagnoses Cervical radiculopathy Procedures XR DEXA bone density Camille Harris MD [address] [facility], [address] [place] [address] Referral ID Status Reason Start Date Expiration Date Visits Requested Visits Authorized [id number] Authorized Perform Procedure 01/08/2024 01/07/2025 1 1 Chief Complaint Patient referred by [...] content) DATE CREATED AUTHOR 08/01/2019 [facility] DATE CREATED AUTHOR AUTHOR'S ORGANIZ ATION 11/05/2021 [facility] DATE CREATED AUTHOR AUTHOR'S ORGANIZ ATION 01/19/2022 [facility] dical Specialist DATE CREATED AUTHOR AUTHOR'S ORGANIZ ATION 10/02/2022 [facility] DATE CREATED AUTHOR AUTHOR'S ORGANIZ ATION 12/25/2022 [facility] DATE CREATED AUTHOR AUTHOR'S ORGANIZ ATION 08/03/2023 [facility] DATE CREATED AUTHOR AUTHOR'S ORGANIZ ATION 11/04/2023 [facility] DATE CREATED AUTHOR AUTHOR'S ORGANIZ ATION 12/20/2023 [facility] DATE CREATED AUTHOR AUTHOR'S ORGANIZ ATION 02/13/2024 [facility] DATE CREATED AUTHOR AUTHOR'S ORGANIZ ATION 02/21/2024 [facility] DATE CREATED AUTHOR AUTHOR'S ORGANIZ ATION 07/03/2024 [facility] DATE CREATED AUTHOR AUTHOR'S ORGANIZ ATION 07/03/2024 [facility] DATE CREATED AUTHOR AUTHOR'S ORGANIZ ATION 07/05/2024 [facility] dical Specialists EPIC DATE CREATED AUTHOR AUTHOR'S ORGANIZ ATION 07/06/[address] [facility] Source Comments (unrecognize d section and content) In the event this informatio n is protected by the Federal Confidentiality of Alcohol and Drug Abuse Patient Records regulations: The Federal rules restrict any use of the information to criminally investigate or prosecute any alcohol or drug abuse patient.[facility] the event this information is protected by the Federal Confidentiality of Alcohol and Drug Abuse Patient Records regulations: The Federal rules restrict any use of the information to criminally investigate or prosecute any alcohol or drug abuse patient.[facility] the event this information is protected by the Federal Confidentiality of Alcohol and Drug Abuse Patient Records regulations: The Federal rules restrict any use of the information to criminally investigate or prosecute any alcohol or drug abuse patient.[facility] Anderson[facility] the event this information is protected by the Federal Confidentiality of Alcohol and Drug Abuse Patient Records regulations: The Federal rules restrict any use of the information to criminally investigate or prosecute any alcohol or drug abuse patient.[facility] Anderson[facility] the event this information is protected by the Federal Confidentiality of Alcohol and Drug Abuse Patient Records regulations: The Federal rules restrict any use of the information to criminally investigate or prosecute any alcohol or drug abuse patient.[facility] Anderson[facility] the event this information is protected by the Federal Confidentiality of Alcohol and Drug Abuse Patient Records regulations: The Federal rules restrict any use of the information to criminally investigate or prosecute any alcohol or drug abuse patient.[facility] AndersonIn the event this information is protected by the Federal Confidentiality of Alcohol and Drug Abuse Patient Records regulations: The Federal rules restrict any use of the information to criminally investigate or prosecute any alcohol or drug abuse patient.[facility] AndersonIn the event this information is protected by the Federal Confidentiality of Alcohol and Drug Abuse Patient Records regulations: The Federal rules restrict any use of the information to criminally investigate or prosecute any alcohol or drug abuse patient.[facility] AndersonIn the event this information is protected by the Federal Confidentiality of Alcohol and Drug Abuse Patient Records regulations: The Federal rules restrict any use of the information to criminally investigate or prosecute any alcohol or drug abuse patient.[facility] AndersonIn the event this information is protected by the Federal Confidentiality of Alcohol and Drug Abuse Patient Records regulations: The Federal rules restrict any use of the information to criminally investigate or prosecute any alcohol or drug abuse patient.[facility] AndersonIn the event this information is protected by the Federal Confidentiality of Alcohol and Drug Abuse Patient Records regulations: The Federal rules restrict any use of the information to criminally investigate or prosecute any alcohol or drug abuse patient.[facility] AndersonIn the event this information is protected by the Federal Confidentiality of Alcohol and Drug Abuse Patient Records regulations: The Federal rules restrict any use of the information to criminally investigate or prosecute any alcohol or drug abuse patient.[facility] AndersonIn the event this information is protected by the Federal Confidentiality of Alcohol and Drug Abuse Patient Records regulations: The Federal rules restrict any use of the information to criminally investigate or prosecute any alcohol or drug abuse patient.[facility] Reason for Visit (unrecogniz ed section and content) Reason Comments Results Reason Comments Head and Neck Cancer Specialty Diagnoses / Procedures Referred By Contac t Referred To Contact Hematology/Oncology / HEMATOLOGY/ONCOLOGY Diagnoses Follow-up examination 1 year follow up LABS WITH CT Procedures EST PATIENT Memo Cole MD [facility] [place] [address] Memo Cole MD [address] [place] [address] [place] [address] Referral ID Status Reason Start Date Expiration Date Visits Re quested Visits Authorized [id number] Closed 10/13/2021 06/17/2022 1 1 Reason Comments Referral Information Neurosurgery Reason Comments Established Patient Specialty Diagnoses / Procedures Referred By Contac t Referred To Contact Hematology/Oncology / HEMATOLOGY/ONCOLOGY Diagnoses 2 week phone follow up [phone] Procedures PHYS/QHP TELEPHONE EVALUATION 5-10 MIN PROVIDER SPECIALTY PHONE CALL Memo Cole MD [address] [place] [address] Memo Cole MD [address] [place] [address] [place] [address] Referral ID Status Reason Start Date Expiration Date Visits Re quested Visits Authorized [id number] Closed 10/27/2021 06/17/2022 1 1 Reason Comments Triage Internal Referral--o ld Reason Comments Appointment Reason Comments New Patient Specialty Diagnoses / Procedures Referred By Contac t Referred To Contact Neurology / BRAIN TUMOR Diagnoses Hydrocephalus (HCC) Hydrocephalus Procedures OFFICE/OUTPATIENT NEW MODERATE MDM 45-59 MINUTES NEW SURGICAL Elvi Cadena MD [address] [facility] [place] [address] Kelly Perez PA-C [address] [place] [address] Referral ID Status Reason Start Date Expiration Date Visits Re quested Visits Authorized [id number] Closed 09/13/2022 06/17/2023 1 1 Reason Comments Patient Question Reason Comments Radiology MRI Specialty Diagnoses / Procedures [facility] Diagnoses 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HCC) Procedures MRI BRAIN WO/W IVCON MRI BRAIN BRAIN STEM W/O W/CONTRAST MATERIAL Kelly Perez PA-C [address] [place] [address] Mr Imaging Referral ID Status Reason Start Date Expiration Date V isits Requested Visits Authorized [id number] Closed Auto-Generate d Referral 09/20/2022 10/20/2023 1 [...] TISSUE NECK W/CONTRAST MATERIAL Memo Cole MD [address] [place] [address] [place] [address] [place] [address] Referral ID Status Reason Start Date Expiration Date V isits Requested Visits Authorized [id number] Closed Auto-Generate d Referral 10/26/2023 06/17/2024 1 1 Specialty Diagnoses / Procedures Referred By Contac t Referred To Contact CT IMAGING Diagnoses Lung nodules Procedures CT CHEST W IVCON DIAGNOSTIC COMPUTED TOMOGRAPHY THORAX W/CONTRAST Memo Cole MD [address] [place] [address] [place] [address] Ct Imaging [facility] Referral ID Status Reason Start Date Expiration Date V isits Requested Visits Authorized [id number] Closed Auto-Generate d Referral 10/30/2022 11/29/2022 1 1 Specialty Diagnoses / Procedures Referred By Contac t Referred To Contact CT IMAGING Diagnoses Malignant neoplasm of head, face and neck (HCC) Lung nodules 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) Localized swelling, mass or lump of neck Procedures CT NECK SOFT TISSUE W IVCON CONTRAST CAT OF NECK TISSUE Memo Cole MD [address] [place] [address] [place] [address] Ct Imaging [facility] Referral ID Status Reason Start Date Expiration Date V isits Requested Visits Authorized [id number] Closed Auto-Generate d Referral 09/23/2021 11/22/2021 1 1 Reason Comments Neck Pain Tingling Numbness Specialty Diagnoses / Procedures Referred By Contac t Referred To Contact Radiology 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 tumor perfusion protocol w and wo IV contrast Shimon Heaton, PA-C [address] [place] [address] Referral ID Status Reason Start Date Expiration Date Visits Requested Visits Authorized [id number] Authorized Perform Procedure 10/24/2023 10/23/2024 1 1 Reason Comments Neck Pain Specialty Diagnoses / Procedures Referred By Contac t Referred To Contact Diagnoses Cervical radiculopathy Senile osteoporosis Procedures ECG 12 lead Camille Harris MD [address] [facility], [address] [address] Referral ID Status Reason Start Date Expiration Date V isits Requested Visits Authorized [id number] Authorized 01/09/2024 01/08/2025 1 1 Specialty Diagnoses / Procedures Referred By Contac t Referred To Contact Radiology Diagnoses Cervical radiculopathy Procedures XR cervical spine complete 6+ views Camille Harris MD [address] [facility], [address] [address] Referral ID Status Reason Start Date Expiration Date Visits Requested Visits Authorized [id number] Authorized Perform Procedure 01/03/2024 01/02/2025 1 1 Specialty Diagnoses / Procedures Referred By Contac t Referred To Contact Radiology Diagnoses Cervical radiculopathy Procedures XR DEXA bone density Camille Harirs MD [address] [facility], [address] [address] Referral ID Status Reason Start Date Expiration Date Visits Requested Visits Authorized [id number] Authorized Perform Procedure 01/08/2024 01/07/2025 1 1 Reason Comments Post-op Spine Surgery Pain in left shoul skye. Care Teams (unrecognized sec tion and content) Assistant Plant Controller Relationship Specialty Start Date End Date Griselda Krause [address] [place], [place] [phone] PCP - General Family Practice 11/20/18 TomekaGriselda meneses [address] [place] [phone] Referring Family Practice 11/20/18 Assistant Plant Controller Relationship Specialty Start Date End Date Griselda Krause [address] [place], [place] [phone] PCP - General Family Practice 11/20/18 TomekaGriselda meneses [address] [place], [place] [phone] Referring Family Practice 11/20/18 Assistant Plant Controller Relationship Specialty Start Date End Date Griselda Krause [address] [place] [address], [place] [address] PCP - General Family Practice 11/20/18 Griselda Krause [address] [place] [address], [place] [address] Referring Family Practice 11/20/18 Assistant Plant Controller Relationship Specialty Start Date End Date Griselda Krause [address] [place] [address], [place] [address] PCP - General Family Practice 11/20/18 Griselda Krause [address] [place] [address], [place] [address] Referring Family Practice 11/20/18 Assistant Plant Controller Relationship Specialty Start Date End Date Griselda Krause [address] [place] [address], [place] [address] PCP - General Family Medicine 11/20/18 Griselda Krause [address] [place] [address], [place] [address] Referring Family Medicine 11/20/18 Assistant Plant Controller Relationship Specialty Start Date End Date Griselda Krause [address] [place] [address], [place] [address] PCP - General Family Medicine 11/20/18 Griselda Krause [address] [place] [address], [place] [phone] Referring Family Medicine 11/20/18 Team Status: Inactive Member Role Status Dates Griselda Krause DO Primary Care Provider Active Daniel Gaytan APRN Emergency Provider Active Team Status: Active Member Role Status Dates Griselda Krause , DO Primary Care Provider Active Elvi Cadena MD Attending Provider Active Team Status: Active Member Role Status Griselda Nelida , DO Primary Care Provider Active Team Status: Inactive Member Role Status Dates Griselda Krause , DO Primary Care Provider Active Landy Wong Jr, MD Emergency Provider Active Team Status: Active Member Role Status Griselda Krause , DO Primary Care Provider Active Nikole hTomason APRN AIRCRAFT DE ICER INSTALLER-C Attending Provider A ctive Team Status: Inactive Member Role Status Griselda Krause , DO Primary Care Provider Active Elvi Cadena MD Attending Provider Active Team Status: Inactive Member Role Status Griselda Krause , DO Primary Care Provider Active Nikole Thomason APRN AIRCRAFT DE ICER INSTALLER-C Attending Provider A ctive Assistant Plant Controller Relationship Specialty Start Date End Date Griselda Krause [address] [place] [phone] PCP - General Family Medicine 11/20/18 Griselda Krause [address] [place], [place] [phone] Referring Family Medicine 11/20/18 Elvi Cadena MD [address] [place] [address] Referring Neurology 08/18/22 Assistant Plant Controller Relationship Specialty Start Date End Date Griselda Krause [address] [place], [place] [phone] PCP - General Family Medicine 11/20/18 Griselda Krause [address] [place] [address], [place] [address] Referring Family Medicine 11/20/18 Elvi Cadena MD [address] [place] [address] Referring Neurology 08/18/22 Assistant Plant Controller Relationship Specialty Start Date End Date TomekaGriselda meneseser [address] [place] [address] PCP - General Family Medicine 11/20/18 TomekaGriselda meneses [address] [place] [address], [place] [address] Referring Family Medicine 11/20/18 Elvi Cadena MD [address] [facility] [address] [id number] Referring Neurology 08/18/22 Team Status: Inactive Member Role Status Dates Griselda Krause DO Primary Care Provider, Attending Provi skye Active Team Status: Inactive Member Role Status Dates Griselda Krause DO Primary Care Provider Active Lima Joseph MD Attending Provider Active Team Status: Inactive Member Role Status Dates Griselda Krause DO Primary Care Provider Active Rohit Agraawl DO Emergency Provider Active Team Status: Inactive Member Role Status Dates Griselda Krause DO Primary Care Provider Active Lilliam Cason MD Attending Provider Active Team Status: Inactive Member Role Status Dates Griselda Krause DO Primary Care Provider Active Ruddy Harvey MD Attending Provider Active Assistant Plant Controller Relationship Specialty Start Date End Date Griselda Krause DO [address] [place] [phone] PCP - General Family Medicine 02/13/23 Assistant Plant Controller Relationship Specialty Start Date End Date Griselda Krause DO [address] [place] [phone] PCP - General Family Medicine 02/13/23 Team Status: Inactive Member Role Status Dates Griselda Krause DO Primary Care Provider Active Sta rt: May 04, 2023 End: May 04, 2023 Nikole Thomason APRN AIRCRAFT DE ICER INSTALLER-C Attending Provider Active Start: April End: May 04, 2023 Team Status: Inactive Member Role Status Dates Griselda Kuns , DO Primary Care Provider Active Sta [...] September 05, 2023 End: September 05, 2023 Assistant Plant Controller Relationship Specialty Start Date End Date Griselda Krause DO PCP - General 01/03/19 Assistant Plant Controller Relationship Specialty Start Date End Date Griselda Krause DO [address] [place] [address] PCP - General 01/03/19 [place] [address] [place] [address] Consulting Physician Hematology and Oncology 10/05/23 Team [...] October 29, 2023 End: October 29, 2023 Assistant Plant Controller Relationship Specialty Start Date End Date Griselda Krause [address] [place] [phone] PCP - General Family Medicine 11/20/18 Griselda Krause [address] [place] [address] Referring Family Medicine 11/20/18 Elvi Cadena MD [address] [facility] [address] [address] Referring Neurology 08/18/22 Team Status: Active Member Role Status Dates Lilliam Cason MD Cage Manager Active Griselda Krause DO Primary Care Provider Active Team Status: Inactive Member Role Status Dates Griselda Krause DO Primary Care Provide r, Attending Provider Active Start: December 03, 2023 End: December 03, 2023 Team Status: Inactive Member Role Status Dates Griselda Krause DO Primary Care Provide r, Attending Provider Active Start: January 31, 2024 End: January 31, 2024 Assistant Plant Controller Relationship Specialty Start Date End Date Griselda Krause [address] [place] [phone] PCP - General Family Medicine 11/20/18 Griselda Krause [address] [place], [place] [phone] Referring Family Medicine 11/20/18 Elvi Cadena MD [address] [facility] [address] [place] [address] Referring Neurology 08/18/22 Assistant Plant Controller Relationship Specialty Start Date End Date Griselda Krause [address] [place] [phone] PCP - General Family Medicine 11/20/18 Griselda Krause [address] [place] [phone] Referring Family Medicine 11/20/18 Elvi Cadena MD [address] [place] [address], [place] [address] Referring Neurology 08/18/22 Assistant Plant Controller Relationship Specialty Start Date End Date Griselda Krause [address] [place] [address] PCP - General Family Medicine 11/20/18 Griselda Krause [address] [place] [address] Referring Family Medicine 11/20/18 Assistant Plant Controller Relationship Specialty Start Date End Date Griselda Krause DO [address] [place] [address] PCP - General 01/03/19 [place] [address] [place] [address] Consulting Physician Hematology and Oncology 10/05/23 Solomon Narayanan PA-C [address] [facility], [address] [address] Physician Dining Room Helper Neurosurgery 12/12/23 Team Status: Inactive Member Role Status Dates Griselda Krause DO Primary Care Provide r, Attending Provider Active Start: April 01, 2024 End: April 01, 2024 Assistant Plant Controller Relationship Specialty Start Date End Date Griselda Krause DO [address] [place] [address] PCP - General 01/03/19 [place] [address] [place] [address] Consulting Physician Hematology and Oncology 10/05/23 Solomon Narayanan PA-C [address] [facility], [address] [address] Physician Dining Room Helper Neurosurgery 12/12/23 Assistant Plant Controller Relationship Specialty Start Date End Date Griselda Krause DO [address] [place] [address] PCP - General 01/03/19 [place] [address] [place] [address] Consulting Physician Hematology and Oncology 10/05/23 Solomon Narayanan PA-C [address] [place] [address] Physician Dining Room Helper Neurosurgery 12/12/23 Team Status: Inactive Member Role Status Dates Griselda Krause DO Primary Care Provider Active Sta rt: April 28, 2024 End: April 28, 2024 Lilliam Cason MD Attending Provider Active Sta rt: April 28, 2024 End: April 28, 2024 Assistant Plant Controller Relationship Specialty Start Date End Date Griselda Krause DO [address] [place] [address] PCP - General Family Medicine 02/13/23 Assistant Plant Controller Relationship Specialty Start Date End Date Griselda Krause DO [address] [place] [address] PCP - General Family Medicine 02/13/23 Assistant Plant Controller Relationship Specialty Start Date End Date Griselda Krause DO [address] [place] [address] PCP - General 01/03/19 [place] [address] [place] [address] Consulting Physician Hematology and Oncology 10/05/23 Solomon Narayanan PA-C [address] [facility], [address] [address] Physician Dining Room Helper Neurosurgery 12/12/23 Assistant Plant Controller Relationship Specialty Start Date End Date Griselda Krause DO [address] [place] [address] PCP - General 01/03/19 [place] [address] [place] [address] Consulting Physician Hematology and Oncology 10/05/23 Solomon Narayanan PA-C [address] [facility], [address] [address] Physician Dining Room Helper Neurosurgery 12/12/23 Assistant Plant Controller Relationship Specialty Start Date End Date Griselda Krause DO [address] [place] [address] PCP - General 01/03/19 [place] [address] [place] [address] Consulting Physician Hematology and Oncology 10/05/23 Solomon Narayanan PA-C [address] [facility], [address] [address] Physician Dining Room Helper Neurosurgery 12/12/23 Assistant Plant Controller Relationship Specialty Start Date End Date Griselda Krause DO [address] [place] [address] PCP - General 01/03/19 [place] [address] [place] [address] Consulting Physician Hematology and Oncology 10/05/23 Solomon Narayanan PA-C [address] [facility], [address] [address] Physician Dining Room Helper Neurosurgery 12/12/23 Assistant Plant Controller Relationship Specialty Start Date End Date Griselda Krause DO [address] [place] [address] PCP - General 01/03/19 [place] [address] [place] [address] Consulting Physician Hematology and Oncology 10/05/23 Solomon Narayanan PA-C [address] [facility], [address] [address] Physician Dining Room Helper Neurosurgery 12/12/23 Assistant Plant Controller Relationship Specialty Start Date End Date Griselda Krause DO [address] [place] [address] PCP - General 01/03/19 [place] [address] [place] [address] Consulting Physician Hematology and Oncology 10/05/23 Solomon Narayanan PA-C [address] [facility], [address] [address] Physician Dining Room Helper Neurosurgery 12/12/23 Team Status: Inactive Member Role Status Dates Griselda Krause DO Primary Care Provider Active Sta rt: June 24, 2024 End: June 24, 2024 Solomon Narayanan PA-C Attending Provider Active St art: June 24, 2024 End: June 24, 2024 Assistant Plant Controller Relationship Specialty Start Date End Date Griselda Krause DO [address] [place] [address] PCP - General 01/03/19 [place] [address] [place] [address] Consulting Physician Hematology and Oncology 10/05/23 Solomon Narayanan PA-C [address] [place] [address] Physician Dining Room Helper Neurosurgery 12/12/23 Assistant Plant Controller Relationship Specialty Start Date End Date Griselda Krause DO [address] [place] [address] PCP - General Family Medicine 02/13/23 Team Status: Inactive Member Role Status Dates Griselda Krause DO Primary Care Provide r, Attending Provider Active Start: July 03, 2024 End: July 03, 2024 Goals (unrecognized section and content) Goals from 12/28/2022 8:23 AM:Goal for Mobility : Maintain active lifestyle as tolerated Goals may be documented in an alternate section Scheduled Active and Recently Administ ered Medications (unrecognized section and content) Medication Order 04/08/2024 04/09/2024 04/10/2024 acetaminophen (Tylenol) tablet 650 mg 650 mg, oral, Every 6 hours, First dose on Sun04/09/24 at 1915, Phase II/On Unit, If ordered PRN for pain, nurse is permitted to administer this medication for higher pain scores based on patient preference? Yes 2022 (Given - Provider: Elizabeth Esposito RN) 28 (Given - Provider: Elizabeth Esposito RN)0615 (Given - Provider: Elizabeth Esposito RN)1315 (Due)191 (Due) amLODIPine (Norvasc) tablet 10 mg 10 mg, oral, Daily, First dose on Sun04/09/24 at 1915, Phase II/On Unit 2022 (Given - Provider: Elizabeth Esposito RN) 1035 (Given - Provider: Whitney Kaufman RN) busPIRone (Buspar) tablet 5 mg 5 mg, oral, 2 times daily, First dose on Sun04/09/24 at 2100, Phase II/On Unit 2014 (Not Given - Provider: Elizabeth Esposito RN - Reason: Patient/family refused) 1035 (Given - Provider: Whitney Kaufman RN)2100 (Due) citalopram (CeleXA) tablet 10 mg 10 mg, oral, Daily, First dose on Sun04/10/24 at 0900, Phase II/On Unit 1035 (Given - Provid er: Whitney Kaufman RN) dexAMETHasone (Decadron) injection 6 mg (COMPLETED) 6 mg, intravenous, Once, On Sun04/09/24 at 2215, For 1 dose 0006 (Given - Provid er: Elizabeth Esposito RN) enoxaparin (Lovenox) syringe 40 mg 40 mg, subcutaneous, Every 24 hours, First dose on Sun04/10/24 at 0000, Phase II/On Unit, Indications: deep vein thrombosis prevention 0007 (Given - Provid er: Elizabeth Esposito RN) lisinopril tablet 10 mg 10 mg, oral, Daily, First dose on Sun04/09/24 at 1915, Phase II/On Unit, On hold since Sun04/09/2024 at 1857 until manually unheld 1856 (Held by provider - Provider: Chicho Bryan MD - Reason: Post-procedure)1914 (Dose Auto Held) 0900 (Canceled Entry - Provider: Whitney Kaufman RN - Comment: held by provider) oxygen (O2) therapy (CANCELED) inhalation, Continuous - Inhalation, First dose on Sun04/09/24 at 1715, Recovery (only), Device: Nasal Cannula, Rate in liters per minute: Other, Custom Value: 1-6 LPM, Keep O2 Sat Above: 92% 1631 ([employer] - Provider: Goyo Agarwal RN - Comment: out of OR at 1631)1645 ([employer] - Provider: Goyo Agarwal RN)171 (Due) polyethylene glycol (Glycolax, Miralax) packet 17 g 17 g, oral, 2 times daily, First dose on Sun04/09/24 at 2100, Phase II/On Unit, Bowel Regimen - for prevention of constipation. 2009 (Not Given - Provider: Elizabeth Esposito RN - Reason: Patient/family refused) 103 (Given - Provider: Whitney Kaufman RN)2099 (Due) tiZANidine (Zanaflex) tablet 4 mg 4 mg, oral, Nightly, First dose on Sun04/09/24 at 2100, Phase II/On Unit 2022 (Given - Provider: Elizabeth Esposito RN) 2099 (Due) Continuous Medication Order 04/08/2024 04/09/2024 04/10/2024 lactated Ringer's infusion (CANCELED) 20 mL/hr, intravenous, Continuous, Starting on Sun04/09/24 at 1215, Preprocedure 1341 (New Bag - Provider: NAVEEN Bear Capp)1630 (Stopped - Provider: NAVEEN Reddy)1631 (Continued from OR - Provider: Goyo Agarwal RN) 1451 (Due: Stopped - Provider: Nikole Lezama, PharmD) lactated Ringer's infusion 100 mL/hr, intravenous, Continuous, Starting on Sun04/09/24 at 1915, For 24 hours, Phase II/On Unit, Convert IV to saline lock when taking oral fluids. 1944 (Not Given - Provider: Elizabeth Esposito RN - Reason: Patient/family refused) PRN Medication Order 04/08/2024 04/09/2024 04/10/2024 albuterol 90 mcg/actuation inhaler 2 puff 2 puff, inhalation, Every 4 hours PRN, shortness of breath, Starting on Sun04/09/24 at 1857, Phase II/On Unit, Shake well before use. bisacodyl (Dulcolax) EC tablet 10 mg 10 mg, oral, Daily PRN, constipation, first line, Starting on Sun04/09/24 at 1857, Phase II/On Unit, 1st line for treatment of constipation - contact provider if no bowel movement in past 48 hours. Do not crush, chew, or split. cyclobenzaprine (Flexeril) tablet 10 mg 10 mg, oral, 3 times daily PRN, muscle spasms, Starting on Sun04/09/24 at 1857, Phase II/On Unit, Indications: muscle spasm 1036 (Given - Provid er: Whitney Kaufman RN) dextrose 50 % injection 12.5 g 12.5 g, intravenous, Every 15 min PRN, For blood glucose 41 to 70 mg/dL, Starting on Sun04/09/24 at 1857, Phase II/On Unit, May repeat until blood glucose level reaches 100 mg/dL or greater. Push 2 - 3 mL/minute if patient has secure IV access. dextrose 50 % injection 25 g 25 g, intravenous, Every 15 min PRN, For blood glucose less than or equal to 40 mg/dL, Starting on Sun04/09/24 at 1857, Phase II/On Unit, May repeat until blood glucose level reaches 100 mg/dL or greater. Push 2 - 3 mL/minute if patient has secure IV access. glucagon (Glucagen) injection 1 mg 1 mg, intramuscular, Every 15 min PRN, blood glucose less than or equal to 40 mg/dL - see comments, For blood glucose less than or equal to 40 mg/dL and no IV access, Starting on Sun04/09/24 at 1857, Phase II/On Unit, Give until blood glucose is 100 mg/dL or greater. If patient DOES NOT HAVE secure IV access & patient is unconscious, NPO or is unable to eat or drink. glucagon (Glucagen) injection 1 mg 1 mg, intramuscular, Every 15 min PRN, low blood sugar - see comments, For blood glucose less than or equal to 70 mg/dL and no IV access, Starting on Sun04/09/24 at 1857, Phase II/On Unit, Give until blood glucose is 100 mg/dL or greater. If patient DOES NOT HAVE secure IV access & patient is unconscious, NPO or is unable to eat or drink. HYDROmorphone (Dilaudid) injection 0.2 mg (CANCELED) 0.2 mg, intravenous, Every 5 min PRN, pain moderate (4-6), first line, Starting on Sun04/09/24 at 1649, Recovery (only), Max total of 4 mg regardless of dose. 1800 (Given - Provider: Goyo Agarwal RN) HYDROmorphone (Dilaudid) injection 0.5 mg (CANCELED) 0.5 mg, intravenous, Every 5 min PRN, pain severe (7-10), first line, Starting on Sun04/09/24 at 1649, Recovery (only), Max total of 4 mg regardless of dose. 1653 (Given - Provider: Goyo Agarwal RN)1730 (Given - Provider: Goyo gAarwal RN) HYDROmorphone PF (Dilaudid) injection 0.2 mg 0.2 mg, intravenous, Every 4 hours PRN, pain breakthrough, use oral first and only use IV if oral is ineffective or cannot take oral. Use as first line if no PO med ordered., Starting on Sun04/09/24 at 1857, Phase II/On Unit lidocaine-epinephrine (Xylocaine W/EPI) 0.5 %-1:200,000 injection (CANCELED) As needed, Starting on Sun04/09/24 at 1430, Intraprocedure 1430 (Given - Provider: Rojas Edwards MD) naloxone (Narcan) injection 0.2 mg 0.2 mg, intravenous, Every 5 min PRN, respiratory depression, Starting on Sun04/09/24 at 1857, Phase II/On Unit, If respiratory rate is less than 8 breaths/minute or patient is difficult to arouse stop any narcotics and contact physician. Administer slow IV push. Repeat as ordered until patient's respiratory rate is greater than 12 breaths/minute. ondansetron (Zofran) injection 4 mg(Linked Group 1) 4 mg, intravenous, Every 8 hours PRN, nausea/vomiting, first line, Starting on Sun04/09/24 at 1857, Phase II/On Unit, 1st Line. Give IV if patient is unable to take orally. If inadequate response within 60 minutes, proceed to next-line agent for same PRN reason or contact provider if no further options ordered. When administering via IV Push, administer over 3-5 minutes. ondansetron (Zofran) tablet 4 mg(Linked Group 1) 4 mg, oral, Every 8 hours PRN, nausea/vomiting, first line, Starting on Sun04/09/24 at 1857, Phase II/On Unit, 1st Line. Use oral route first, if possible. If inadequate response within 60 minutes, proceed to next-line agent for same PRN reason or contact provider if no further options ordered. oxyCODONE (Roxicodone) immediate release tablet 10 mg 10 mg, oral, Every 4 hours PRN, pain severe (7-10), first line, Starting on Sun04/09/24 at 1857, Phase II/On Unit, If ordered PRN for pain, nurse is permitted to administer this medication for higher pain scores based on patient preference? Yes 2025 (Given - Provider: Elizabeth Esposito RN) 29 (Given - Provider: Elizabeth Esposito RN)06 (Given - Provider: Elizabeth Esposito RN) oxyCODONE (Roxicodone) immediate release tablet 2.5 mg 2.5 mg, oral, Every 4 hours PRN, pain mild (1-3), first line, Starting on Sun04/09/24 at 1857, Phase II/On Unit, If ordered PRN for pain, nurse is permitted to administer this medication for higher pain scores based on patient preference? Yes oxyCODONE (Roxicodone) immediate release tablet 5 mg 5 mg, oral, Every 4 hours PRN, pain moderate (4-6), first line, Starting on Sun04/09/24 at 1857, Phase II/On Unit, If ordered PRN for pain, nurse is permitted to administer this medication for higher pain scores based on patient preference? Yes polymyxin B 500,000 Units in sodium chloride 0.9 % 1,000 mL irrigation (CANCELED) As needed, Starting on Sun04/09/24 at 1441, Intraprocedure 1441 (Given - Provider: Rojas Edwards MD) sodium chloride 0.9 % irrigation solution (CANCELED) As needed, Starting on Sun04/09/24 at 1433, Intraprocedure 1433 (Given - Provider: Rojas Edwards MD) thrombin-recombinant (Recothrom) 5,000 unit topical solution (CANCELED) As needed, Starting on Sun04/09/24 at 1433, Intraprocedure 1433 (Given - Provider: Rojas Edwards MD - Comment: mixed with surgifoam) Linked Groups Order Group 1: ondansetron (Zofran) tablet 4 mgJump to med 4 mg, oral, Every 8 hours PRN, nausea/vomiting, first line, Starting on Sun04/09/24 at 1857, Phase II/On Unit, 1st Line. Use oral route first, if possible. If inadequate response within 60 minutes, proceed to next-line agent for same PRN reason or contact provider if no further options ordered. Or ondansetron (Zofran) injection 4 mgJump to med 4 mg, intravenous, Every 8 hours PRN, nausea/vomiting, first line, Starting on Sun04/09/24 at 1857, Phase II/On Unit, 1st Line. Give IV if patient is unable to take orally. If inadequate response within 60 minutes, proceed to next-line agent for same PRN reason or contact provider if no further options ordered. When administering via IV Push, administer over 3-5 minutes. FOR RECORDS PERTAINING TO PATIENTS WHO ARE [...] BE BASED ON THE PRIMARY CLINICAL RECORDS. [employer] [facility]. provides no warranty or guarantee of the accuracy or completeness of information in this document.
[2024-07-07 08:44] VITALS: BP 116/74; PULSE 70; TEMP 36.2; O2SAT 96
[2024-07-07 09:22] VITALS: BP 103/58; PULSE 70; O2SAT 95
[2024-07-07 09:26] VITALS: BP 105/63; PULSE 82; O2SAT 97
--- NOTE | 2024-07-07 09:26 | P.ON_ITS ---
Date of procedure: 07/07/24 Pre-op diagnosis: M54.12 Post-op diagnosis: same as pre-op Procedure: Procedure: Left C3-4, 4-5 transforaminal epidural steroid injection Medications: Bupivacaine 0.25% 1cc, lidocaine 2% 1cc, dexamethasone 10mg The patient was seen and examined in the preoperative holding area.? Informed consent was obtained and placed on the chart.? Patient was brought to the medical procedure unit and placed in the prone position where a timeout was completed verifying the correct patient, procedure site, position, and planned special equipment using sterile aseptic technique.? Under direct fluoroscopic visualization a 25-gauge Quincke tipped spinal needle was advanced to the designated neural foramen where contrast dye was injected to show adequate spread.? The needle was inserted at level left C3-4. There was no evidence of vascular or adverse uptake.? Epidural spread was appreciated.? The above- mentioned injectate was then placed in a 1.5 mL aliquot preceded by negative aspiration.? The needle was removed. The needle was inserted and the procedure repeated at level left C4-5.? The surgery site was covered.? Patient was taken to the postprocedural recovery area and monitored for an appropriate length of time before found suitable for discharge in the accompaniment of a responsible adult. Anesthesia: Local Surgeon: Sarina Ramsey Pathology: none sent Condition: stable Disposition: no change
[2024-07-07] MEDS: DEXAMETHASONE SOD PHOS 10 MG/ML VIAL INJ (09:27)
[2024-07-07] MEDS: BUPIVACAINE HCL 0.25% PF 25 MG/10 ML VIAL INJ (09:27)
[2024-07-07] MEDS: IOHEXOL 240 MG/ML - 10 ML VIAL 12 MG INJ (09:28)
[2024-07-07] MEDS: LIDOCAINE HCL 2% 400 MG/20 ML MDV INJ (09:28)
== END 2024-07-07 09:30 | disposition home or self-care (01) ==
PROVIDERS: PCP Family Medicine; Visit Provider Anesthesiology
DX: M54.12 Radiculopathy, cervical region (principal)
CPT/HCPCS: 64479; 64480; J0665; J1100; Q9966

== ENCOUNTER 2024-07-17 13:08 | Outpatient (OUT) | payer MEDICARE, OTHER, SELFPAY ==
--- NOTE | 2024-07-17 13:31 | PM.CN ---
Consult Note: HPI Data of Consult Patient: known to practice within the last 3 years Requesting Physician: Delia Bowser NP Primary Care Provider: GRISELDA KRAUSE Consult Narrative Reason for consult: f/u Narrative: Jovani Kong a pleasant 63 year old male presents for evaluation of chronic neck pain. Pt underwent cervical fusion at C5-7 04/09/24 with mild improvement per pt. Pain today 6-7/10 in neck and left shoulder, burning and spasming. pt recently underwent left C3,4 C4,5 TFESI with no ongoing relief, notes 60% improvement for 3 days. currently utilizing NSAIDs PRN, robaxin PRN, pregabalin PRN, and hydrocodone-acetaminophen PRN. pt reports hes sensitive to medications and noticing drowsiness with his medications. cc:: CC: Delia Bowser NP Review of Systems ROS Status of ROS 10 or more systems reviewed and unremarkable except as noted in history and below Musculoskeletal Reports: neck pain PFSH PFSH Medical History Neck pain ?M54.2 - Cervicalgia (ICD-10) Low back pain ?M54.50 - Low back pain, unspecified (ICD-10) Smoker ?F17.200 - Nicotine dependence, unspecified, uncomplicated (ICD-10) Irregular heart beat ?I49.9 - Cardiac arrhythmia, unspecified (ICD-10) Hypertension ?I10 - Essential (primary) hypertension (ICD-10) Surgical History H/O neck dissection ?Z98.890 - Other specified postprocedural states (ICD-10) Social History Little interest or pleasure in doing things: not at all Feeling down, depressed, or hopeless: not at all Meds Home Medications and Allergies Home Medications ?Medication ?Instructions ?Recorded ?Confirmed ?Type amlodipine 5 mg tablet (Norvasc) 5 mg PO DAILY 04/16/23 07/07/24 History aspirin 81 mg tablet,delayed 81 mg PO DAILY 04/16/23 07/07/24 History release (Adult Low Dose Aspirin) hydroxyzine HCl 25 mg tablet 25 mg PO BID PRN sleep 04/16/23 07/07/24 History mirtazapine 15 mg tablet 15 mg PO DAILY 04/16/23 07/07/24 History ibuprofen 600 mg tablet (IBU) 600 mg PO BID 11/28/23 07/07/24 History buspirone 5 mg tablet 5 mg PO TID 12/17/23 07/07/24 History hydrocodone 5 mg-acetaminophen 325 See Rx Instructions .Route 02/19/24 07/07/24 Rx mg tablet .COMPLEX PRN pain #45 tabs clopidogrel 75 mg tablet mg 03/11/24 History diazepam 10 mg tablet (Valium) 10 mg PO ONCE PRN anxiety #1 tab 07/02/24 07/07/24 Rx methocarbamol 500 mg tablet mg 07/07/24 History pregabalin 50 mg capsule mg 07/07/24 History Allergies Allergy/AdvReac Type Severity Reaction Status Date / Time cephalexin (From Keflex) Allergy Unknown hives Verified 07/07/24 08:51 Exam Constitutional Documenting provider has reviewed patient's vital signs: yes Common normals: no apparent distress, oriented x3, healthy appearing, alert and well nourished General appearance: cooperative HENMT Common normals: normocephalic, hearing grossly normal bilaterally and moist oral mucous membranes Head and scalp: normocephalic Eye Common normals: PERRL Pupil: PERRL Neck & C-Spine Common normals: full ROM General: normal visual inspection Cervical spine: cervical ROM abnormal, pain with cervical ROM, cervical spine tenderness and trapezius muscle tenderness; no paracervical muscle spasm Other: positive facet loading pain over C2-4 Chest Common normals: inspection of chest normal Respiratory Common normals: normal respiratory effort, no retractions and no use of accessory muscles Neuro Common normals: oriented x3, CN's II-XII intact bilaterally, moves all extremities, no focal motor deficits, no sensory deficits noted and deep tendon reflexes 2+ bilaterally Sensorium/orientation: alert Motor exam: no movement abnormalities noted Psych Common normals: mental status grossly normal, thought process normal, cooperative, affect normal, speech normal and activity/motor behavior normal Speech: normal speech Thought process: normal thought process Results Additional Findings Additional findings: If on a controlled substance or opioids, I have checked an [place] report on this patient and there are no aberrancies noted in the prescribing history.??If on a controlled substance or opioid a drug screen was completed and reviewed within the last year, and if there has not been a drug screen completed we ordered one today to monitor higher risk, state monitored pain medication use. As part of providing excellent, safe, comprehensive care, the following was completed at our patient's visit: 1. A medication reconciliation and review to ensure accurate knowledge of current/active medications, including asking our patients to inform us about any [id number]-[id number] medications or herbal remedies/nutritional supplements/alternative remedies. 2. A review to specifically ensure our patients have had annual screening for screening for depression, screening for tobacco use, and screening for unhealthy alcohol use. For concerning screenings had a discussion with the patient, provided patient education, and recommended follow-up with primary care provider when appropriate. If patient noted with a risk of falling, they received education on strength, gait, and balance training to prevent future risk of falling. Portions of this note may have been carried over from the previous visit and updated as appropriate. Please note this office utilizes paper charting in addition to the electronic medical record. A list of current medications, vitals, and PMH is available there as the clinical staff outside of myself do not have access to [employer] charting during the clinic day operations. As part of providing quality comprehensive care the current medications, vitals, and PMH were reviewed in the paper chart. Assessment and Plan Assessment and Plan (1) Cervical spondylosis: Assessment and Plan: The patient has had over 3 months of moderate to severe neck pain with functional impairment and inadequate response to conservative care including NSAIDS (unless there are contraindication such as concurrent blood thinners), multiple oral or topical pain medications, and home exercise program/physical therapy.? Patient has completed >6 weeks of guided home exercise program and/or formal physical therapy program without relief of their symptoms.? The Oswestry Disability Index was completed, and the patient scored a 31%.? The patient noted the following:?? moderate to severe pain, pain with ADLS walking sleeping social life and travel We discussed the risks and benefits of the procedure with the patient, and we are NOT planning on using sedation as outlined in the guidelines from Medicare unless there is a documented reason that sedation would be strongly recommended.?? ?The procedure will be completed with fluoroscopic guidance.? (2) Status post cervical spinal fusion: Plan bilateral C2-3 C3-4 MBB x2 working towards RFA spinal cord stim information provided, will further discuss at next visit continue norco 5-325mg daily as needed moderate to severe pain continue PRN lyrica and robain continue HEP as tolerated f/u after each injection
== END 2024-07-17 13:09 | disposition home or self-care (01) ==
PROVIDERS: PCP Family Medicine; Visit Provider Nurse Practitioner
DX: M47.812 Spondylosis without myelopathy or radiculopathy, cervical region (principal); M43.22 Fusion of spine, cervical region
CPT/HCPCS: G0463

== ENCOUNTER 2024-07-28 08:07 | Day surgery (SDC) | payer MEDICARE, OTHER, SELFPAY ==
[2024-07-28 08:18] VITALS: BP 129/77; PULSE 77; TEMP 36.2; O2SAT 98
[2024-07-28 08:48] VITALS: BP 132/67; BP 144/65; PULSE 74; PULSE 76; O2SAT 100
[2024-07-28] MEDS: LIDOCAINE HCL 2% 400 MG/20 ML MDV INJ (08:51)
[2024-07-28] MEDS: BUPIVACAINE HCL 0.25% PF 25 MG/10 ML VIAL 6 ML INJ (08:51)
--- NOTE | 2024-07-28 08:51 | W.PM.PROCNOT ---
Date of procedure: 07/28/24 Pre-op diagnosis: Pain due to cervical spondylosis without myelopathy Post-op diagnosis: same as pre-op Procedure: Procedure: Bilateral C2-3, 3-4 medial branch block Medications: Bupivacaine 0.25% 6cc The patient was seen and examined in the preoperative holding area.? The informed consent was obtained and placed on the chart.? The patient was brought to the medical procedure unit and placed in the prone position.? A timeout was completed verifying correct patient, procedure site, positioning, plan, and special equipment.? Using aseptic technique, the needle was placed at left C2.? Under direct fluoroscopic visualization, a Quincke tip needle was advanced to the midpoint of the waist of the articular pillar at the respective medial branch segment. The above-mentioned injectate was placed in a 1 mL aliquot proceeded by negative aspiration.? The needle was removed.? The procedure was completed at all left C3, 4. The same procedure, at the same levels, was then completed on the right side. Insertion site was covered.? Patient was taken to the postprocedural recovery area and monitored for an appropriate length of time before found suitable for discharge in the accompaniment of a responsible adult. Anesthesia: Local Surgeon: Sarina Ramsey Pathology: none sent Condition: stable Disposition: no change
== END 2024-07-28 08:57 | disposition home or self-care (01) ==
LOC: SURGOUT 08:08
PROVIDERS: PCP Family Medicine; Visit Provider Anesthesiology
DX: M47.812 Spondylosis without myelopathy or radiculopathy, cervical region (principal); M54.2 Cervicalgia
CPT/HCPCS: 64490; 64491; J0665

== ENCOUNTER 2024-07-30 14:25 | Outpatient (OUT) | payer MEDICARE, OTHER, SELFPAY ==
--- NOTE | 2024-07-30 14:49 | PM.CN ---
Consult Note: HPI Data of Consult Patient: known to practice within the last 3 years Requesting Physician: Sarina Ramsey MD Primary Care Provider: GRISELDA KRAUSE Consult Narrative Reason for consult: f/u Narrative: Jovani Kong a 63 year old male presents for evaluation and management of chronic neck pain. hx of multilevel cervical spondylosis, DDD, stenosis and C5-7 fusion 04/09 at . pt continues to have moderate to severe neck and left shoulder pain with numbness tingling weakness of left shoulder and arm. Pain today 6/10 increasing to 10/10 with twisting, lifting, standing, walking, sleep, driving. Pain improved with ice and lying. pt utilizes norco 5-325mg, robaxin, and lyrica with mild improvement. cannot take NSAIDs plavix. cc:: CC: Sarina Ramsey MD Review of Systems ROS Status of ROS 10 or more systems reviewed and unremarkable except as noted in history and below Musculoskeletal Reports: neck pain PFSH PFSH Medical History Neck pain ?M54.2 - Cervicalgia (ICD-10) Low back pain ?M54.50 - Low back pain, unspecified (ICD-10) Smoker ?F17.200 - Nicotine dependence, unspecified, uncomplicated (ICD-10) Irregular heart beat ?I49.9 - Cardiac arrhythmia, unspecified (ICD-10) Hypertension ?I10 - Essential (primary) hypertension (ICD-10) Surgical History H/O cervical spine surgery ?Z98.890 - Other specified postprocedural states (ICD-10) H/O neck dissection ?Z98.890 - Other specified postprocedural states (ICD-10) Social History Little interest or pleasure in doing things: not at all Feeling down, depressed, or hopeless: not at all Meds Home Medications and Allergies Home Medications ?Medication ?Instructions ?Recorded ?Confirmed ?Type amlodipine 5 mg tablet (Norvasc) 5 mg PO DAILY 04/16/23 07/28/24 History aspirin 81 mg tablet,delayed 81 mg PO DAILY 04/16/23 07/28/24 History release (Adult Low Dose Aspirin) hydroxyzine HCl 25 mg tablet 25 mg PO BID PRN sleep 04/16/23 07/28/24 History mirtazapine 15 mg tablet 15 mg PO DAILY 04/16/23 07/07/24 History ibuprofen 600 mg tablet (IBU) 600 mg PO BID 11/28/23 07/28/24 History clopidogrel 75 mg tablet 75 mg PO DAILY 03/11/24 07/28/24 History methocarbamol 500 mg tablet 500 mg PO 07/07/24 History pregabalin 50 mg capsule 50 mg PO Q12H 07/07/24 07/28/24 History hydrocodone 5 mg-acetaminophen 325 1 tab PO DAILY PRN pain #30 tabs 07/17/24 07/28/24 Rx mg tablet Allergies Allergy/AdvReac Type Severity Reaction Status Date / Time cephalexin (From Keflex) Allergy Unknown hives Verified 07/28/24 08:20 Exam Constitutional Documenting provider has reviewed patient's vital signs: yes Common normals: no apparent distress, oriented x3, healthy appearing, alert and well nourished General appearance: cooperative HENMT Common normals: normocephalic, hearing grossly normal bilaterally and moist oral mucous membranes Head and scalp: normocephalic Eye Common normals: PERRL Pupil: PERRL Neck & C-Spine Common normals: full ROM General: normal visual inspection Cervical spine: cervical ROM abnormal, pain with cervical ROM, cervical spine tenderness and trapezius muscle tenderness; no paracervical muscle spasm Other: positive facet loading pain over C2-4 altered sensation to left C5,6,7 Chest Common normals: inspection of chest normal Respiratory Common normals: normal respiratory effort, no retractions and no use of accessory muscles Neuro Common normals: oriented x3, CN's II-XII intact bilaterally, moves all extremities, no focal motor deficits, no sensory deficits noted and deep tendon reflexes 2+ bilaterally Sensorium/orientation: alert Motor exam: strength 5/5 throughout and no movement abnormalities noted Psych Common normals: mental status grossly normal, thought process normal, cooperative, affect normal, speech normal and activity/motor behavior normal Speech: normal speech Thought process: normal thought process Results Additional Findings Additional findings: If on a controlled substance or opioids, I have checked an OARRS report on this patient and there are no aberrancies noted in the prescribing history.??If on a controlled substance or opioid a drug screen was completed and reviewed within the last year, and if there has not been a drug screen completed we ordered one today to monitor higher risk, state monitored pain medication use. As part of providing excellent, safe, comprehensive care, the following was completed at our patient's visit: 1. A medication reconciliation and review to ensure accurate knowledge of current/active medications, including asking our patients to inform us about any [id number] medications or herbal remedies/nutritional supplements/alternative remedies. 2. A review to specifically ensure our patients have had annual screening for screening for depression, screening for tobacco use, and screening for unhealthy alcohol use. For concerning screenings had a discussion with the patient, provided patient education, and recommended follow-up with primary care provider when appropriate. If patient noted with a risk of falling, they received education on strength, gait, and balance training to prevent future risk of falling. Portions of this note may have been carried over from the previous visit and updated as appropriate. Please note this office utilizes paper charting in addition to the electronic medical record. A list of current medications, vitals, and PMH is available there as the clinical staff outside of myself do not have access to [employer] charting during the clinic day operations. As part of providing quality comprehensive care the current medications, vitals, and PMH were reviewed in the paper chart. Assessment and Plan Assessment and Plan (1) Status post cervical spinal fusion: (2) Myalgia, other site: (3) Chronic prescription opiate use: Assessment and Plan: I feel these medications are improving the patient's quality of life and allow them to tolerate activities of daily living as well as participate in recreational activity.? The patient does not report intolerable side effects. The patient is NOT opioid naive and non-pharmacologic and non-opioid treatment has failed to significantly relieve the patient's pain and improve functionality. The patient has a diagnosis that is related to a somatic or visceral pain etiology. ? ?? I reviewed with the patient the potential risks and side effects with the use of? opioid medications including but not limited to respiratory depression,? sedation, and even . Within the last 12 months I have verified the patient has access to naloxone should? these effects occur. The patient was advised to let? their family know they had Naloxone in case they would need to administer? the medication. I advised the patient to avoid the use of any other? sedation substances including alcohol, THC, and benzodiazepines while? taking opioid medications due to the risk of compounding side effects and? detrimental outcomes. within the last 12 months I have reviewed the [employer], pain treatment agreement and urine drug screen.? ?? A drug screen was completed within the last year, and no aberrancies were noted regarding their use of controlled substances. The patient understands they are subject to the terms and conditions of the pain contract that they have signed. ? ?? I have checked an OARRS report on this patient today and there are no aberrancies noted in the prescribing history.? (4) Degenerative disc disease, cervical: (5) Cervical spondylosis: (6) Cervical radiculopathy: Plan increase hydrocodone acetamniophen 7.5mg BID PRN moderate to severe pain continue robaxin 500mg BID PRN pain/spasms continue lyrica 50mg HS, notices drowsiness if he takes AM f/u 6 weeks to discuss left C5,6,7 TFESI vs scs trial
== END 2024-07-30 14:26 | disposition home or self-care (01) ==
LOC: PM 14:25
PROVIDERS: PCP Family Medicine; Visit Provider Anesthesiology
DX: M43.22 Fusion of spine, cervical region (principal); M79.18 Myalgia, other site; Z79.891 Long term (current) use of opiate analgesic; M50.30 Other cervical disc degeneration, unspecified cervical region; M47.812 Spondylosis without myelopathy or radiculopathy, cervical region; M54.12 Radiculopathy, cervical region
CPT/HCPCS: G0463

== ENCOUNTER 2024-09-15 13:57 | Outpatient (OUT) | payer MEDICARE, OTHER, SELFPAY ==
--- NOTE | 2024-09-15 14:58 | P.CN_ITS ---
Consult Note: HPI Data of Consult Patient: known to practice within the last 3 years Consult date: 09/15/24 Requesting Physician: Sarina Ramsey MD Primary Care Provider: GRISELDA KRAUSE Consult Narrative Reason for consult: neck, left shoulder and arm pain Narrative: 63yom who presents for assessment. notes worsening pain from left neck into left shoulder and arm. underwent cervical fusion last fall, but no advanced updated imaging since his surgery. has had epidural steroid injections in the past, with good relief. continues in a series of provider directed home exercises >6 weeks, without lasting benefit. uses lyrica. denies adverse med side effects. cc:: CC: Sarina Ramsey MD Review of Systems ROS Status of ROS 10 or more systems reviewed and unremark able except as noted in history and below [facility] History Neck pain ?M54.2 - Cervicalgia (ICD-10) Low back pain ?M54.50 - Low back pain, unspecified (ICD-10) Smoker ?F17.200 - Nicotine dependence, unspecified, uncomplicated (ICD-10) Irregular heart beat ?I49.9 - Cardiac arrhythmia, unspecified (ICD-10) Hypertension ?I10 - Essential (primary) hypertension (ICD-10) Surgical History H/O cervical spine surgery ?Z98.890 - Other specified postprocedural states (ICD-10) H/O neck dissection ?Z98.890 - Other specified postprocedural states (ICD-10) Social History Little interest or pleasure in doing things: not at all Feeling down, depressed, or hopeless: not at all Meds Home Medications and Allergies Home Medications ?Medication ?Instructions ?Recorded ?Confirmed ?Type amlodipine 5 mg tablet (Norvasc) 5 mg PO DAILY 04/16/23 07/28/24 History aspirin 81 mg tablet,delayed 81 mg PO DAILY 04/16/23 07/28/24 History release (Adult Low Dose Aspirin) hydroxyzine HCl 25 mg tablet 25 mg PO BID PRN sleep 04/16/23 07/28/24 History mirtazapine 15 mg tablet 15 mg PO DAILY 04/16/23 07/07/24 History ibuprofen 600 mg tablet (IBU) 600 mg PO BID 11/28/23 07/28/24 History clopidogrel 75 mg tablet 75 mg PO DAILY 03/11/24 07/28/24 History methocarbamol 500 mg tablet 500 mg PO 07/07/24 History pregabalin 50 mg capsule 50 mg PO Q12H 07/07/24 07/28/24 History hydrocodone 5 mg-acetaminophen 325 1 tab PO DAILY PRN pain #30 tabs 07/17/24 07/28/24 Rx mg tablet hydrocodone 7.5 mg-acetaminophen 1 tab PO BID PRN pain #60 tabs 08/08/24 Rx 325 mg tablet hydrocodone 7.5 mg-acetaminophen 1 tab PO BID PRN pain #60 tabs 09/11/24 Rx 325 mg tablet naloxone 4 mg/actuation nasal 4 mg intranasal Q2M PRN opioid 09/11/24 Rx spray (Narcan) overdose #2 ea Allergies Allergy/AdvReac Type Severity Reaction Status Date / Time cephalexin (From Keflex) Allergy Unknown hives Verified 07/28/24 08:20 Exam Narrative Exam Narrative: Psych-alert and oriented x 3.? Attentive and appropriate, constitutionally normal, displays normal mood and affect per situation.? There are no obvious deficits in memory, reasoning, or intellect.? Skin-no obvious rashes, bruising, or erythema noted to the patient's area of pain.? Extremities-upper extremities are warm with minimal edema and palpable pulses. Cervical- tenderness to palpation noted in the cervical spine and paraspinal musculature.? Pain is elicited with flexion, extension, and lateral rotation of the cervical spine.? Range of motion is diminished due to pain. Facet loading maneuvers are negative.? Strength-unremarkable and within normal limits ? Sensory-no notable sensory deficits in the bilateral upper extremities to touch or pinprick with the exception to decreased sensation to the left C5, 6, 7 dermatomal distribution.? Coordination remains intact.? Gait remains non-antalgic. Assessment and Plan Assessment and Plan (1) Cervical spondylosis: (2) Cervical stenosis of spinal canal: (3) Cervical radiculopathy: Plan 63yom who presents for assessment. failed conservative measures, as noted. imaging reviewed, but given changes since his fusion, would like to update his cervical mri without contrast. he is in agreement. in terms of pain control, given good response to cervical tfesi in the past, will proceed with left c5-6, 6-7 tfesi under fluoroscopic guidance. he is in agreement. also discussed scs. meds reviewed, no changes. follow up after procedure and imaging.
== END 2024-09-15 13:58 | disposition home or self-care (01) ==
LOC: PM 13:57
PROVIDERS: PCP Family Medicine; Visit Provider Anesthesiology
DX: M47.812 Spondylosis without myelopathy or radiculopathy, cervical region (principal); M48.02 Spinal stenosis, cervical region; M54.12 Radiculopathy, cervical region
CPT/HCPCS: G0463

== ENCOUNTER 2024-09-22 09:11 | Day surgery (SDC) | payer MEDICARE, OTHER, SELFPAY ==
[2024-09-22 09:22] VITALS: BP 105/70; PULSE 72; TEMP 36.2; O2SAT 96
[2024-09-22 10:20] VITALS: BP 115/70; BP 145/68; PULSE 68; PULSE 71; O2SAT 96
[2024-09-22] MEDS: IOHEXOL 240 MG/ML - 10 ML VIAL INJ (10:23)
[2024-09-22] MEDS: DEXAMETHASONE SOD PHOS 10 MG/ML VIAL INJ (10:23)
[2024-09-22] MEDS: BUPIVACAINE HCL 0.25% PF 25 MG/10 ML VIAL INJ (10:23)
[2024-09-22] MEDS: LIDOCAINE HCL 2% 400 MG/20 ML MDV 3 ML INJ (10:24)
--- NOTE | 2024-09-22 10:28 | P.ON_ITS ---
Date of procedure: 09/22/24 Pre-op diagnosis: M54.12 Post-op diagnosis: same as pre-op Procedure: Procedure: Left C5-6, 6-7 transforaminal epidural steroid injection Medications: Bupivacaine 0.25% 1cc, lidocaine 2% 1cc, dexamethasone 10mg The patient was seen and examined in the preoperative holding area.? Informed consent was obtained and placed on the chart.? Patient was brought to the medical procedure unit and placed in the prone position where a timeout was completed verifying the correct patient, procedure site, position, and planned special equipment using sterile aseptic technique.? Under direct fluoroscopic visualization a 25-gauge Quincke tipped spinal needle was advanced to the designated neural foramen where contrast dye was injected to show adequate spread.? The needle was inserted at level left C5-6. There was no evidence of vascular or adverse uptake.? Epidural spread was appreciated.? The above- mentioned injectate was then placed in a 1.5 mL aliquot preceded by negative aspiration.? The needle was removed. The needle was inserted and the procedure repeated at level left C6-7.? The surgery site was covered.? Patient was taken to the postprocedural recovery area and monitored for an appropriate length of time before found suitable for discharge in the accompaniment of a responsible adult. Anesthesia: Local Surgeon: Sarina Ramsey Pathology: none sent Condition: stable Disposition: no change
== END 2024-09-22 10:28 | disposition home or self-care (01) ==
LOC: SURGOUT 09:12
PROVIDERS: PCP Family Medicine; Visit Provider Anesthesiology
DX: M54.12 Radiculopathy, cervical region (principal)
CPT/HCPCS: 64479; 64480; J0665; J1100; Q9966

== ENCOUNTER 2024-10-08 12:42 | Outpatient (OUT) | payer MEDICARE, OTHER, SELFPAY ==
--- NOTE | 2024-10-08 12:48 | MR_ITS ---
The [address] [address] Patient Name: SHANTEL MELENDEZ MRN: [id number] date: 1960 Sex: M Assigned Patient Location: MRI Current Patient Location: MRI Accession/Order Number: [id number] Exam Date: 10/08/2024 13:50 Report Date: 10/08/2024 13:58 At the request of: PARMJIT NAGEL MD Procedure: MR cervical spine wo con MRI Cervical Spine without contrast TECHNIQUE: Multiplanar T1 and T2-weighted imaging of the cervical spine obtained. HISTORY: Postlaminectomy syndrome cervical spine pain for 3 years COMPARISON: Presurgical 07/18/2023 BONY ALIGNMENT: Adequate BONY LESION: None CERVICAL CORD: No significant demyelination. SKULL BASE: unremarkable. PREVERTEBRAL SOFT TISSUES: Unremarkable NASOPHARYNGEAL REGION: unremarkable. VERTEBRAL ARTERIES: unremarkable. POSTSURGICAL CHANGES: C5-C7 anterior plate and screw fixation artifact CERVICAL SOFT TISSUES: Unremarkable C1-2 LEVEL: Unremarkable C2-3: Mild disc space narrowing. Diffuse disc bulge. Small left paracentral disc protrusion. Flattening of the anterior thecal sac. No significant crowding the cord. No cord edema or hemorrhage. Patent neural foramen C3-4: Disc space narrowing. Diffuse disc bulge and osteophyte complex. Mild crowding of the cord. No cord edema or hemorrhage. Mild bilateral neural foraminal narrowing C4-5: Disc space narrowing. Diffuse disc bulge and endplate spurring. Mild crowding of the cord. No cord edema or hemorrhage. Patent neural foramen C5-6: Unremarkable postsurgical change. Patent central canal and neural foramen C6-7: Unremarkable postsurgical change. Diffuse disc bulge and endplate spurring. Moderate crowding the cord. Similar crowding of the cord compared to prior examination. No cord edema or hemorrhage. Mild bilateral neural foraminal narrowing C7-T1: Patent central canal and neural foramen MR/MR cervical spine wo con IMPRESSION: Postsurgical change of C5-C7 anterior fusion. Moderate crowding the cord at the C6-7 level. Mild crowding the cord at the C2-3, C3-4 and C4-5 levels. No cord edema. Neural foraminal narrowing as above. Impression dictated by: Filipe Perez M.D.10/08/2024 1:58 PM Dictation Location: [place] [address] Electronically authenticated by: [id number] Y Date: 10/08/2024 13:58
== END 2024-10-08 12:43 | disposition home or self-care (01) ==
LOC: MRI 12:42
PROVIDERS: PCP Family Medicine; Visit Provider Anesthesiology
DX: M96.1 Postlaminectomy syndrome, not elsewhere classified (principal); M43.22 Fusion of spine, cervical region
CPT/HCPCS: 72141

== ENCOUNTER 2024-10-09 14:36 | Outpatient (OUT) | payer MEDICARE, OTHER, SELFPAY ==
--- NOTE | 2024-10-09 15:10 | P.CN_ITS ---
Consult Note: HPI Data of Consult Patient: known to practice within the last 3 years Requesting Physician: Delia Bowser NP Primary Care Provider: GRISELDA KRAUSE Consult Narrative Reason for consult: f/u Narrative: Jovani Kong a pleasant 63 year old male presents for evaluation of cervical pain/radiculopathy. Pt underwent C5-7 fusion fall but continued to have cervical radiculopathy. Recently underwent cervical MRI which shows moderate crowding of the spinal cord at C6-7 with mild bilateral foraminal narrowing. Pt underwent left C5/6 C6/7 TFESI on 09/22/24 with >80% improvement ongoing. Pain today -08/25. Pt noting increased LUE heaviness and weakness starting 1 day after the injection. Unfortunately pt has been very ill over the last three months with double pneumonia, dehydration, and >15lbs weight loss since june 2024. Pt has an upcoming appointment with GI specialist tomorrow at [facility]. Pt has a f/u appointment with his NS 10/20/24. cc:: CC: Delia Bowser NP Review of Systems ROS Status of ROS 10 or more systems reviewed and unremark able except as noted in history and below Musculoskeletal Reports: neck pain and muscle weakness; Denies: extremity pain PFSH PFSH Medical History Neck pain ?M54.2 - Cervicalgia (ICD-10) Low back pain ?M54.50 - Low back pain, unspecified (ICD-10) Smoker ?F17.200 - Nicotine dependence, unspecified, uncomplicated (ICD-10) Irregular heart beat ?I49.9 - Cardiac arrhythmia, unspecified (ICD-10) Hypertension ?I10 - Essential (primary) hypertension (ICD-10) Surgical History H/O cervical spine surgery ?Z98.890 - Other specified postprocedural states (ICD-10) H/O neck dissection ?Z98.890 - Other specified postprocedural states (ICD-10) Social History Little interest or pleasure in doing things: not at all Feeling down, depressed, or hopeless: not at all Meds Home Medications and Allergies Home Medications ?Medication ?Instructions ?Recorded ?Confirmed ?Type amlodipine 5 mg tablet (Norvasc) 5 mg PO DAILY 04/16/23 09/22/24 History aspirin 81 mg tablet,delayed 81 mg PO DAILY 04/16/23 09/22/24 History release (Adult Low Dose Aspirin) hydroxyzine HCl 25 mg tablet 25 mg PO BID PRN sleep 04/16/23 09/22/24 History mirtazapine 15 mg tablet 15 mg PO DAILY 04/16/23 09/22/24 History ibuprofen 600 mg tablet (IBU) 600 mg PO BID 11/28/23 09/22/24 History clopidogrel 75 mg tablet 75 mg PO DAILY 03/11/24 09/22/24 History methocarbamol 500 mg tablet 500 mg PO 07/07/24 History pregabalin 50 mg capsule 50 mg PO Q12H 07/07/24 09/22/24 History hydrocodone 7.5 mg-acetaminophen 1 tab PO BID PRN pain #60 tabs 09/11/24 09/22/24 Rx 325 mg tablet naloxone 4 mg/actuation nasal 4 mg intranasal Q2M PRN opioid 09/11/24 09/22/24 Rx spray (Narcan) overdose #2 ea Allergies Allergy/AdvReac Type Severity Reaction Status Date / Time cephalexin (From Keflex) Allergy Unknown hives Verified 09/22/24 09:24 Exam Constitutional Documenting provider has reviewed patient's vital signs: yes Common normals: no apparent distress, oriented x3, healthy appearing, alert and well nourished General appearance: cooperative [facility] Common normals: normocephalic, hearing grossly normal bilaterally and moist oral mucous membranes Head and scalp: normocephalic Eye Common normals: PERRL Pupil: PERRL Neck & C-Spine Common normals: full ROM General: normal visual inspection Cervical spine: pain with cervical ROM and paracervical muscle tenderness; no cervical spine tenderness Other: negative spurlings sensation intact in BUE oddly strength 4/5 in RUE and 5/5 in LUE although pt reports heaviness and weakness of LUE Chest Common normals: inspection of chest normal Respiratory Common normals: normal respiratory effort, no retractions and no use of accessor y muscles Neuro Common normals: oriented x3 Sensorium/orientation: alert Psych Common normals: mental status grossly normal, thought process normal, cooperative, affect normal, speech normal and activity/motor behavior normal Speech: normal speech Thought process: normal thought process Results Additional Findings Additional findings: If on a controlled substance or opioids, I have checked an OARRS report on this patient and there are no aberrancies noted in the prescribing history.??If on a controlled substance or opioid a drug screen was completed and reviewed within the last year, and if there has not been a drug screen completed we ordered one today to monitor higher risk, state monitored pain medication use. As part of providing excellent, safe, comprehensive care, the following was completed at our patient's visit: 1. A medication reconciliation and review to ensure accurate knowledge of current/active medications, including asking our patients to inform us about any [id number]-[id number] medications or herbal remedies/nutritional supplements/alternative remedies. 2. A review to specifically ensure our patients have had annual screening for screening for depression, screening for tobacco use, and screening for unhealthy alcohol use. For concerning screenings had a discussion with the patient, provided patient education, and recommended follow-up with primary care provider when appropriate. If patient noted with a risk of falling, they received education on strength, gait, and balance training to prevent future risk of falling. Portions of this note may have been carried over from the previous visit and updated as appropriate. Please note this office utilizes paper charting in addition to the electronic medical record. A list of current medications, vitals, and PMH is available there as the clinical staff outside of myself do not have access to [employer] charting during the clinic day operations. As part of providing quality comprehensive care the current medications, vitals, and PMH were reviewed in the paper chart. Assessment and Plan Assessment and Plan (1) Status post cervical spinal fusion: (2) Cervical stenosis of spinal canal: (3) Cervical radiculopathy: (4) Chronic prescription opiate use: (5) Myalgia, other site: Plan 63 year old male with longstanding hx of neck and UE pain. overall pain well controlled at this time due to recent left C5/6 C6/7 TFESI and current medications. pt finds benefit to pregabalin 50mg HS, robaxin 500mg PRN, and hydrocodone-acetaminophen 5-325mg BID PRN without side effects. cannot take NSAIDs as he is on clopidogrel. continue f/u with NS, may consider spinal cord stimulation if pt fails to benefit from ESIs long-term. continue current medications, risks vs benefits reviewed. continue f/u with PCP and GI. f/u with our office 3 months, sooner if needed
== END 2024-10-09 14:37 | disposition home or self-care (01) ==
LOC: PM 14:38
PROVIDERS: PCP Family Medicine; Visit Provider Nurse Practitioner
DX: M43.22 Fusion of spine, cervical region (principal); M48.02 Spinal stenosis, cervical region; M54.12 Radiculopathy, cervical region; Z79.891 Long term (current) use of opiate analgesic; M79.18 Myalgia, other site
CPT/HCPCS: G0463

== ENCOUNTER 2025-01-01 14:22 | Outpatient (OUT) | payer MEDICARE, OTHER, SELFPAY ==
--- OUTSIDE RECORDS SUMMARY | 2024-12-24 14:00 | XMS_ITS | Encounter Summary ---
Author Organization [facility] Address [address] [place] [address] Care Team Providers Care Product Support Manager Name Role Phone Jax Hastings DO Primary Care Provider [phone] Reason for Visit * Injection (Routine) - Closed Specialty Diagnoses / Procedures Referred By Contpalomo t Referred To Contact Neurology Diagnoses Acute pain of left shoulder Procedures TX OFFICE/OUTPATIENT [facility] 60 MINUTES Oziel Cadena MD [address] [place] [address] Phone: tel: fax: Oziel Cadena MD [address] [place] [address] Phone: tel: fax: Referral ID Status Reason Start Date Expiration Date V isits Requested Visits Authorized [id number] Closed Perform Procedure 11/12/2024 05/18/2025 1 1 Encounter Details Date Type Department Care Team (Latest Contact Info) Description 12/24/2024 2:00 PM EDT Clinical Support [facility] [address] [facility] [address] [place] [address] Oziel Cadena MD [address] [place] [address] Nerve root and plexus disorder, unspecified (Primary Dx); Acute pain of left shoulder Social History Tobacco Use Types Packs/Day Years Used Date Smoking Tobacco: Every Day Cigarettes Smokeless Tobacco: Never Comments:6-10 cigarettes/day Alcohol Use Standard Drinks/Week Comments Not Currently 0 (1 standard drink = 0.6 oz pur e alcohol) Sex and Gender Information Value Date Recorded Sex Assigned at Male 11/22/2022 2:37 PM EDT Legal Sex Male 7:14 PM EDT Gender Identity Male 11/22/2022 2:37 PM EDT Sexual Orientation Straight 11/22/2022 2: 37 PM EDT documented as of this encounter Last Filed Vital Signs Vital Sign Reading Time Taken Comments Blood Pressure 125/87 12/24/2024 2:12 PM EDT Pulse 85 12/24/2024 2:12 PM EDT Temperature - - Respiratory Rate - - Oxygen Saturation - - Inhaled Oxygen Concentration - - Weight 74.8 kg (165 lb) 12/24/2024 2:12 PM EDT Height - - Body Mass Index 25.09 05/21/2024 2:04 PM EST documented in this encounter Plan of Treatment Upcoming Encounters Date Type Department Care Team (Late st Contact Info) Description 01/08/2025 10:20 AM EDT Office Visit [facility] [address] [facility] [address] [place] [address] Anahi Franco PA [address] [facility] [address] [place] [address] 02/04/2025 2:30 PM EDT Clinical Support [facility] [address] [facility] [address] [place] [address] Oziel Cadena MD [address] [facility] [address] [place] [address] documented as of this encounter Visit Diagnoses Diagnosis Nerve root and plexus disorder, unspecified- Primary Acute pain of left shoulder documented in this encounter Administered Medications Inactive Administered Medications - up to 3 most recent administrations Medication Order MAR Action Action Date Dose Rate Site bupivacaine (Marcaine) 0.5 % injection 5 mg 5 mg, Injection, Once, On Sun12/30/24 at 1615, For 1 doseIndications:Acute pain of left shoulder,Nerve root and plexus disorder, unspecified Given 12/24/2024 2:15 PM EDT 5 mg dexAMETHasone sod phos (Decadron) injection 4 mg 4 mg (1 mL), Injection, Once, On Sun12/30/24 at 1615, For 1 doseIndications:Acute pain of left shoulder,Nerve root and plexus disorder, unspecified Given 12/24/2024 2:15 PM EDT 4 mg documented in this encounter Care Teams Product Support Manager Relationship Specialty Start Date End Date Jax Hastings DO PCP - General Family Medicine 02/13/23 documented as of this encounter
--- OUTSIDE RECORDS SUMMARY | 2024-12-29 13:30 | XMS_ITS | Encounter Summary ---
Author Organization [facility] Address [address] [place] [address] Care Team Providers Care Cd Reactor Operator Head Name Role Phone Jax Hastings Primary Care Provider [phone] Encounter Details Date Type Department Care Team (Latest Contact Info) Description 12/29/2024 1:30 PM EDT Ancillary Procedure [facility] [address] [place] [address] Arthrodesis status Social History Tobacco Use Types Packs/Day Years [...] PM EDT documented as of this encounter Plan of Treatment Upcoming Encounters Date Type Department Care Team (Late st Contact Info) Description 01/08/2025 10:20 AM EDT Office Visit [facility] [address] [place] [address] Anahi Franco PA [address] [place] [address] 02/04/2025 2:30 PM EDT Clinical Support [facility] [address] [place] [address] Oziel Cadena MD [address] [facility] [address], [place] [address] documented as of this encounter Procedures Procedure Name Priority Date/Time Associated Diagnosis Comments XR CERVICAL SPINE 2-3 VIEWS Routine 12/29/2024 1:34 PM EDT Arthrodesis status documented in this encounter Results * XR cervical spine 2 or 3 views (12/29/2024 1:34 PM EDT) Anatomical Region Laterality Modality Spine, C-spine Radiographic Alcira ging 12/29/2024 1:49 PM EDT Impressions 12/29/2024 1:51 PM EDT No fracture. Internal fixation C5-C7. Moderate degenerative change cervical spine. ELECTRONICALLY SIGNED BY: Doroteo Matthews MD Narrative 12/29/2024 1:51 PM EDT Cervical spine. HISTORY: Cervical fusion 1 year ago. Burning sensation left neck radiating to left shoulder since surgery. FINDINGS: Cervical vertebral bodies normal in height and alignment. Loss of cervical lordosis. Anterior buttress plate and screws provide internal fixation to C5-C7. Intervertebral disc space devices C5-6 and C6-7. Disc space narrowing C3-4. Small anterior osteophytes C3 and C4. No prevertebral soft tissue swelling. No fracture, dislocation or bone lesion. Bilateral calcification carotid arteries. Procedure Note Doroteo Matthews MD - 12/29/2024 Cervical spine. HISTORY: Cervical fusion 1 year ago. Burning sensation left neck radiating to leftshoulder since surgery. FINDINGS: Cervical vertebral bodies normal in height and alignment. Loss of cervicallordosis. Anterior buttress plate and screws provide internal fixation toC5-C7. Intervertebral disc space devices C5-6 and C6-7. Disc spacenarrowing C3-4. Small anterior osteophytes C3 and C4. No prevertebral softtissue swelling. No fracture, dislocation or bone lesion. Bilateralcalcification carotid arteries. IMPRESSION: No fracture. Internal fixation C5-C7. Moderate degenerative change cervical spine. ELECTRONICALLY SIGNED BY: Doroteo Matthews MD us Doretha Harris MD IMG XR PROCEDURES Final Result documented in this encounter Visit Diagnoses Diagnosis Arthrodesis status documented in this encounter Care Teams Cd Reactor Operator Head Relationship Specialty Start Date End Date Jax Hastings DO PCP - General Family Medicine 02/13/23 documented as of this encounter
--- OUTSIDE RECORDS SUMMARY | 2025-01-01 14:25 | XMS_ITS | Clinical Summary ---
Author Organization [facility] Address [address] [place] [address] Care Team Providers Care Ice Cream Scooper Name Role Phone Andreagideon Jax Neisha JOSÉ Primary Care Provider [phone] Allergies Active Allergy Reactions Criticality Noted Date Comments Cephalexin Hives 11/25/2018 Other Reaction(s): hives, Unknown Medications mirtazapine (Remeron) 15 MG tablet mirtazapine 15 mg tablet take 1/2 tablet by mouth at bedtime 3 Active ibuprofen 600 MG tablet ibuprofen 600 mg tablet take 1 tablet by mouth every 8 hours NEEDED FOR PAIN Active hydrOXYzine HCl (Atarax) 25 MG tablet hydroxyzine HCl 25 mg tablet take 1 to 2 tablets by mouth at bedtime if needed 2 Active citalopram (CeleXA) 20 MG tablet citalopram 20 mg tablet Active ASPIRIN 81 PO Aspir-81 Active Multiple Vitamin (MULTIVITAMIN ADULT PO) Take 1 capsule by mouth in the morning. Active amLODIPine (Norvasc) 5 MG tablet Take 1 tablet by mouth in the morning. Active clotrimazole-be tamethasone (Lotrisone) cream Active clopidogrel (Plavix) 75 MG tablet Take 75 mg by mouth in the morning. 4 Active ezetimibe (Zetia) 10 MG tablet Take 10 mg by mouth in the morning. 3 Active rosuvastatin (Crestor) 5 MG tablet Take 5 mg by mouth in the morning. 4 Active Botox 200u vial IJ Soln 200 units injectionIndica tions:Spasmodic Torticollis Inject 400 units into neck muscles every 90 days 2 each 3 4 Active pravastatin (Pravachol) 40 MG tablet Take 40 mg by mouth at bedtime 4 Active nicotine (Nicoderm CQ) 21 MG/24HR patchIndication s:Cigarette nicotine dependence with nicotine-induce d disorder Place 1 patch over 24 hours on the skin 1 (one) time each day at the same time Apply 21 mg daily x 6 weeks then apply 14 mg patch daily x 2 weeks then apply 7 mg patch daily x 2 weeks, stop cigarette use at treatment onset 44 patch 4 Active lisinopril 5 MG tablet Take 5 mg by mouth Daily 4 Active Brexpiprazole 1 MG tablet Daily 4 Active HYDROcodone-vanda taminophen (Edgeley) 5-325 MG tablet take 1 tablet orally daily NEEDED FOR PAIN MUST LAST 30 DAYS 4 Active terbinafine (LamISIL AT) 1 % creamIndication s:Tinea manuum Apply to the affected area on the hand, bid, 30 day supply 42 g 1 4 Active busPIRone (Buspar) 5 MG tabletIndicatio ns:Generalized anxiety disorder TAKE 1 TABLET BY MOUTH EVERY MORNING , TAKE ONE TABLET BY MOUTH EVERY EVENING , AND 1 TABLET BEFORE BEDTIME 90 tablet 3 4 Active methocarbamol (Robaxin) 500 MG tablet 4 Active methocarbamol (Robaxin) 750 MG tabletIndicatio ns:Cervical paraspinal muscle spasm Take 1 tablet (750 mg) by mouth in the morning and 1 tablet (750 mg) at noon and 1 tablet (750 mg) in the evening and 1 tablet (750 mg) before bedtime. 120 tablet 3 4 Active pregabalin (Lyrica) 50 MG capsule Take 50 mg by mouth in the morning and 50 mg in the evening. 5 Active albuterol HFA 90 mcg/act inhaler Inhale 2 puffs every 4 (four) hours if needed 4 Active tiZANidine (Zanaflex) 4 MG capsuleIndicati ons:Cervical stenosis of spinal canal tizanidine 4 mg capsule take 1 capsule by mouth twice a day if needed for MUSCLE SPASTICITY 60 capsule 11 5 Active dexAMETHasone (Decadron) 2 MG tabletIndicatio ns:Cervical stenosis of spinal canal 2mg 3 pills po X3 days,2 pills po daily X3 days , then 1 pill po daily X3 days then stop 9 days 18 pills 18 tablet 1 5 025 Active tiZANidine (Zanaflex) 4 MG capsuleIndicati ons:Cervical stenosis of spinal canal tizanidine 4 mg capsule take 1 capsule by mouth twice a day if needed for MUSCLE SPASTICITY 60 capsule 11 3 025 Discontin ued(Reord er) dexAMETHasone (Decadron) 2 MG tabletIndicatio ns:Cervical stenosis of spinal canal 2mg 3 pills po X3 days,2 pills po daily X3 days , then 1 pill po daily X3 days then stop 9 days 18 pills 18 tablet 1 4 025 Discontin ued(Reord er) Hospital, Clinic, or Other Facility Administered Medication Ordered Dose Route Frequency Start Date End Date Status dexAMETHasone sod phos (Decadron) injection 4 mgIndications:Acute pain of left shoulder,Nerve root and plexus disorder, unspecified 4 mg IJ Once 12/30/2024 12/24/2024 Ended bupivacaine (Marcaine) 0.5 % injection 5 mgIndications:Acute pain of left shoulder,Nerve root and plexus disorder, unspecified 5 mg IJ Once 12/30/2024 12/24/2024 Ended Active Problems Problem Noted Date Diagnosed Date Nerve root and plexus disorder, unspecified 07/19 Other nerve root and plexus disorders 05/22/2024 CAD (coronary artery disease) 02/26/2024 Senile osteoporosis 01/03/2024 Generalized anxiety disorder 12/12/2023 Acute effusion of left ear 10/16/2023 Acute left-sided thoracic back pain 10/16/2023 Acute sinusitis 10/16/2023 Anxiety and depression 10/16/2023 AV bloc first degree 10/16/2023 Brain mass 10/16/2023 Burning sensation 10/16/2023 Cardiac arrhythmia 10/16/2023 Productive cough 10/16/2023 PAD (peripheral artery disease) 10/16/2023 Hyperlipidemia 10/16/2023 Heart block 10/16/2023 Essential hypertension 10/16/2023 Dyshidrotic eczema 10/16/2023 History of oral cancer 10/16/2023 Dizziness 10/16/2023 Paresthesia of left lower extremity 10/16/2023 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/16/2023 Myelitis 08/29/2023 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 Cigarette nicotine dependenc e with nicotine-induced disorder 08/14/2023 Abnormal brain MRI 08/14/2023 Cervicalgia 07/23/2023 Acute pain of left shoulder 07/23/2023 Cervical dystonia 07/03/2023 Radicular pain in left arm 04/04/2023 Cervical radiculopathy 03/01/2023 Preglaucoma, unspecified, right eye 12/29/2022 Visual disturbance 12/29/2022 Weakness 12/29/2022 Ulnar neuropathy 12/29/2022 Pain in left arm 12/29/2022 Skin sensation disturbance 12/29/2022 Cervical paraspinal muscle spasm 12/29/2022 Cervical stenosis of spinal canal 12/29/2022 Degeneration of cervical intervertebral disc Age-related nuclear cataract of right eye 2022 Impairment of balance 12/10/2022 Insomnia 12/10/2022 Lumbar radiculopathy 12/10/2022 Magnetic resonance imaging of brain abnormal Malignant (primary) neoplasm, unspecified 2022 Migraine 12/10/2022 Myalgia 12/10/2022 Schwannoma 12/10/2022 Pseudophakia 12/10/2022 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 R 12/29/2024 1:30 PM EDT Ancillary Procedure [facility] [address] [place] [address] Arthrodesis status 12/29/2024 Refill [facility] [address] [place] [address] Amber Mi MA Cervical stenosis of spinal canal (Primary Dx) 12/29/2024 Travel 12/24/2024 2:00 PM EDT Clinical Support [facility] [address] [place] [address] Oziel Cadena MD Nerve root and plexus disorder, unspecified (Primary Dx); Acute pain of left shoulder 12/24/2024 Bamboo flowsheet [facility] [address] [place] [address] Oziel Cadena MD 12/24/2024 Travel 12/17/2024 Travel 11/19/2024 Telephone [facility] [address] [facility] [address] [id number] Ary Lugo, RT. R 11/12/2024 1:40 PM EDT Clinical Support [facility] [address] [facility] [address] [place] [address] Oziel Cadena MD Nerve root and plexus disorder, unspecified (Primary Dx); Acute pain of left shoulder 11/12/2024 Bamboo flowsheet [facility] [address] [place] [address] Oziel Cadena MD 11/12/2024 Travel 11/05/2024 Travel from Last 3 Months Immunizations Immunization Administration Dates Next Due Tdap 03/15/2014 Family History Medical History Relation Name Comments Cancer Father Stroke Father Hypertension Mother Relation Name Status Comments Father Mother Alive Social History Tobacco Use Types Packs/Day Years Used Date Smoking Tobacco: Every Day Cigarettes Smokeless Tobacco: Never Tobacco Cessation:Ready to Q uit: Not Asked; Counseling Given: Not Answered Comments:6-10 cigarettes/day Alcohol Use Standard Drinks/Week Comments Not Currently 0 (1 standard drink = 0.6 oz pur e alcohol) Sex and Gender Information Value Date Recorded Sex Assigned at Male 11/22/2022 2:37 PM EDT Legal Sex Male 7:14 PM EDT Gender Identity Male 11/22/2022 2:37 PM EDT Sexual Orientation Straight 11/22/2022 2: 37 PM EDT Last Filed Vital Signs Vital Sign Reading Time Taken Comments Blood Pressure 125/87 12/24/2024 2:12 PM EDT Pulse 85 12/24/2024 2:12 PM EDT Temperature 36.5 C (97.7 F) 10/04/2023 11:33 AM EDT Respiratory Rate 20 09/10/2023 10:29 AM EDT Oxygen Saturation 97% 10/04/2023 11:33 AM EDT Inhaled Oxygen Concentration - - Weight 74.8 kg (165 lb) 12/24/2024 2:12 PM EDT Height 172.7 cm (5' 8 ) 05/21/2024 2:04 PM EST Body Mass Index 25.09 05/21/2024 2:04 PM EST Plan of Treatment Upcoming Encounters Date Type Department Care Team (Late st Contact Info) Description 01/08/2025 10:20 AM EDT Office Visit [facility] [address] [place] [address] TommyAnahi gordon DE [address] [place] [address] 02/04/2025 2:30 PM EDT Clinical Support [facility] [address] [place] [address] Oziel Cadena MD [address] [facility] [address] [place] [address] Health Maintenance Due Date Last Done Comments CT Colonography 1962 Colonoscopy 1962 Colorectal Cancer Screening 1962 FIT-DNA 1962 FIT 1962 FOBT 1962 Sigmoidoscopy 1962 Influenza Vaccine (#1) 2025 Procedures Procedure Name Priority Date/Time Associated Diagnosis Comments XR CERVICAL SPINE 2-3 VIEWS Routine 12/29/2024 1:34 PM EDT Arthrodesis status from Last 3 Months Results * XR cervical spine 2 or [...] spine. ELECTRONICALLY SIGNED BY: Doroteo Matthews MD Doretha Harris MD IMG XR PROCEDURES Final Result from Last 3 Months Insurance [facility] MEDICARE Care Teams Ice Cream Scooper Relationship Specialty Start Date End Date Jax Hastings DO PCP - General Family Medicine 02/13/23
--- OUTSIDE RECORDS SUMMARY | 2025-01-01 14:25 | XMS_ITS | Encounter Summary ---
Author Organization [facility] Address [address] [place] [address] Phone Care Team Providers Care Costume Designer Name Role Phone Jax Hastings DO Primary Care Provider [phone] Jax Hastings DO Unavailable Jax Hastings DO Unavailable Helder Saleem MD Unavailable [phone] René Narayanan PA-C Unavailable [phone] Encounter Details Date Type Department Care Team (Late st Contact Info) Description 02/13/2019 Orders Only [facility] [address] [place] [address] Conversion, Onbase Social History Tobacco Use Types Packs/Day Years Used Date Smoking Tobacco: Never Assessed Sex and Gender Information Value Date Recorded Sex Assigned at Male 09/14/2023 6:37 PM EDT Legal Sex Male 3:14 AM EST Gender Identity Male 09/14/2023 6:37 PM EDT Sexual Orientation Straight 09/14/2023 6: 37 PM EDT documented as of this encounter Plan of Treatment Upcoming Encounters Date Type Department Care Team (Late st Contact Info) Description 04/06/2025 9:30 AM EDT Office Visit [facility] [address] [facility] [address] [place] [address] Doretha Harris MD [address] [place], [place] [phone] Scheduled Orders Name Type Priority Associated Diagnoses Belén barnes Schedule OUTSIDE LAB SCAN Lab Ordered: 02/13/2019 documented as of this encounter Visit Diagnoses Not on filedocumented in this encounter Care Teams Costume Designer Relationship Specialty Start Date End Date Jax Hastings DO [address] [place] [address] PCP - General 01/03/19 Jax Hastings DO [address] [place], [place] [address] PCP - Brookesmith AC PCP 09/16/21 11/15/22 Jax Hastings DO [address] [place], [place] [id number] [facility] 10/16/21 12/15/22 [place] [address] [place] [address] Consulting Physician Hematology and Oncology 10/05/23 René Narayanan PA-C [address] [place] [address] Physician Tooth Cutter Contact Wheel Neurosurgery 12/12/23 documented as of this encounter
--- OUTSIDE RECORDS SUMMARY | 2025-01-01 14:25 | XMS_ITS | Encounter Summary ---
Author Organization [facility] Address [address] [place] [address] Phone Care Team Providers Care Glove Operator Name Role Phone Jax Hastings DO Primary Care Provider [phone] Helder aSleem MD Unavailable [phone] René Narayanan PA-C Unavailable [phone] Encounter Details Date Type Department Care Team (Late st Contact Info) Description 11/07/[address] [facility] [address] [place] [address] [place] [address] [place], [place] [id number] Social History Tobacco Use Types Packs/Day Years Used Date Smoking Tobacco: Every Day Cigarettes 0.5 51.5 Started: 1971 Passive Smoke Exposure: Never Smokeless Tobacco: Never Alcohol Use Standard Drinks/Week Comments Not Currently 0 (1 standard drink = 0.6 oz pur e alcohol) AUDIT-C Answer Date Recorded Q1: How often do you have a drink containing alcohol? Never 04/09/2024 Q2: How many drinks containi ng alcohol do you have on a typical day when you are drinking? Patient does not drink Q3: How often do you have si x or more drinks on one occasion? Never 04/09/2024 Overall Financial Resource Strain (CARDIA) Daniel r Date Recorded How hard is it for you to pa y for the very basics like food, housing, medical care, and heating? Not hard at all 04/09/2024 PHQ-2 Answer Date Recorded Patient Health Questionnaire-2 Score 2 10/13/2024 PRAPARE - Transportation Answer Date Re corded In the past 12 months, has l ack of transportation kept you from medical appointments or from getting medications? No 03/19 In the past 12 months, has l ack of transportation kept you from meetings, work, or from getting things needed for daily living? No 04/09/2024 Housing Stability Vital Sign Answer Keaton e Recorded In the last 12 months, was t here a time when you were not able to pay the mortgage or rent on time? No 04/09/2024 In the past 12 months, how m any times have you moved where you were living? 1 04/09/2024 At any time in the past 12 m [facility], were you homeless or living in a long term (including now)? No 04/09/2024 Sex and Gender Information Value Date Recorded Sex Assigned at Male 09/14/2023 6:37 PM EDT Legal Sex Male 3:14 AM EST Gender Identity Male 09/14/2023 6:37 PM EDT Sexual Orientation Straight 09/14/2023 6: 37 PM EDT COVID-19 Exposure Response Date Recorded In the last 10 days, have yo u been in contact with someone who was confirmed or suspected to have Coronavirus/COVID-19? No / Unsure 10/13/2024 8:51 AM EDT documented as of this encounter Plan of Treatment Upcoming Encounters Date Type Department Care Team (Late st Contact Info) Description 04/06/2025 9:30 AM EDT Office Visit [facility] [address] [facility] [address] [place] [address] Doretha Harris MD [address] [place] [address] documented as of this encounter Goals Goal Patient Goal Type Associated Problems Recent Progress Patient-Stated? Author Help patient manage spine surgery Care Plan Patient has spine surgery No Doretha Harris MD documented as of this encounter Visit Diagnoses Not on filedocumented in this encounter Additional Health Concerns Active Problems Noted Date Diagnosed Date Patient has spine surgery 01/09/2024 Assessment Noted Time A fall risk assessment has been complete d for the patient 10/13/2024 9:06 AM EDT documented as of this encounter Care Teams Glove Operator Relationship Specialty Start Date End Date Jax Hastings DO [address] [place] [address] PCP - General 01/03/19 [place] [address] [place] [address] Consulting Physician Hematology and Oncology 10/05/23 René Narayanan PA-C [address] [place] [address] Physician Four Roll Calender Operator Neurosurgery 12/12/23 documented as of this encounter
--- OUTSIDE RECORDS SUMMARY | 2025-01-01 14:25 | XMS_ITS | Encounter Summary ---
Author Organization [facility] Address [address] [place] [address] Phone Care Team Providers Care Material Hauler Name Role Phone Jax Hastings DO Primary Care Provider [phone] Helder Saleem MD Unavailable [phone] René Narayanan PA-C Unavailable [phone] Encounter Details Date Type Department Care Team (Late st Contact Info) Description 02/18/2023 Patient Risk Score ACO Care Management [address] [place] [address] Social History Tobacco Use Types Packs/Day Years [...] Description 04/06/2025 9:30 AM EDT Office Visit [facility] [address] [facility] [address] [place] [address] Doretha Harris MD [address] [place], [place] [phone] documented as of this encounter Visit Diagnoses Not on filedocumented in this encounter Care Teams Material Hauler Relationship Specialty Start Date End Date Jax Hastings DO [address] [place] [address] PCP - General 01/03/19 [place] [address] [place] [address] Consulting Physician Hematology and Oncology 10/05/23 René Narayanan PA-C [address] [place] [address] Physician Client Care Representative Neurosurgery 12/12/23 documented as of this encounter
--- OUTSIDE RECORDS SUMMARY | 2025-01-01 14:25 | XMS_ITS | Encounter Summary ---
Author Organization [facility] Address [address] [place] [address] Care Team Providers Care Deck Worker Name Role Phone Jax Hastings Neisha JOSÉ Primary Care Provider [phone] Encounter Details Date Type Department Care Team (Late st Contact Info) Description 12/24/2024 Bamboo flowsheet [facility] [address] [facility] [place] [address] Oziel Cadena MD [address] [facility] [address] [address] Social History Tobacco Use Types Packs/Day Years [...] Office Visit [facility] [address] [place] [address] Anahi Franco PA [address] [facility] [address] [place] [address] 02/04/2025 2:30 PM EDT Clinical Support [facility] [address] [facility] [address] [place] [address] Oziel Cadena MD [address] [facility] [address] [place] [address] documented as of this encounter Visit Diagnoses Not on filedocumented in this encounter Care Teams Deck Worker Relationship Specialty Start Date End Date Jax Hastings DO PCP - General Family Medicine 02/13/23 documented as of this encounter
--- OUTSIDE RECORDS SUMMARY | 2025-01-01 14:25 | XMS_ITS | Encounter Summary ---
Author Organization [facility] Address [address] [place] [address] Phone Care Team Providers Care Mixing House Operator Name Role Phone Jax Hastings DO Primary Care Provider [phone] Helder Saleem MD Unavailable [phone] René Narayanan PA-C Unavailable [phone] Encounter Details Date Type Department Care Team (Late st Contact Info) Description 12/30/2024 Telephone [facility] [address] [facility] [address] [place] [address] Asya Ashley MA Social History Tobacco Use Types Packs/Day Years [...] Never 04/09/2024 Overall Financial Resource Strain (CARDIA) Answe r Date Recorded How hard is it [...] any time in the past 12 m [facility], were you homeless or living in a retirement (including now)? No 04/09/2024 Sex and Gender Information Value Date Recorded Sex Assigned at Male 09/14/2023 6:37 PM EDT Legal Sex Male 3:14 AM EST Gender Identity Male 09/14/2023 6:37 PM EDT Sexual Orientation Straight 09/14/2023 6: 37 PM EDT documented as of this encounter Miscellaneous Notes * Telephone Encounter - Asya Ashley MA - 12/30/2024 11:40 AM EDT ----- Message from Doretha Harris sent at 12/30/2024 11:29 AM EDT ----- Regarding: FW: Looks okay. But osteopenic, would send to see his PCP ----- Message ----- From: Interface, Radiology Results In Sent: 12/29/2024 8:11 AM EDT To: Doretha Harris MD documented in this encounter Plan of Treatment Upcoming Encounters Date Type Department Care Team (Late st Contact Info) Description 04/06/2025 9:30 AM EDT Office Visit [facility] [address] [facility] [address] [place] [address] Doretha Harris MD [address] [place] [address] documented as of this encounter Goals Goal [...] documented as of this encounter Care Teams Mixing House Operator Relationship Specialty Start Date End Date Jax Hastings DO [address] [place] [address] PCP - General 01/03/19 [place] [address] [place] [address] Consulting Physician Hematology and Oncology 10/05/23 René Narayanan PA-C [address] [place] [address] Physician Rocket Test Fire Worker Neurosurgery 12/12/23 documented as of this encounter
--- OUTSIDE RECORDS SUMMARY | 2025-01-01 14:25 | XMS_ITS | Encounter Summary ---
Author Organization [facility] Address [address] [place] [address] Care Team Providers Care Mail Delivery Supervisor Name Role Phone Jax Hastings Primary Care Provider [phone] Encounter Details Date Type Department Care Team (Latest Contact Info) Description 12/29/2024 Travel Social History Tobacco Use Types Packs/Day Years [...] DERM [address] [place] [address] Anahi Franco PA [address] [place] [address] 02/04/2025 2:30 PM EDT Clinical Support [facility] [address] [place] [address] Oziel Cadena MD [address] [facility] [address] [address] documented as of this encounter Visit Diagnoses Not on filedocumented in this encounter Care Teams Mail Delivery Supervisor Relationship Specialty Start Date End Date Jax Hastings DO PCP - General Family Medicine 02/13/23 documented as of this encounter
--- OUTSIDE RECORDS SUMMARY | 2025-01-01 14:25 | XMS_ITS | Clinical Summary ---
Author Organization [facility] Address [address] [place] [address] Phone Care Team Providers Care Marketing Rep Name Role Phone DarlingJax Neisha JOSÉ Primary Care Provider [phone] Helder Saleem MD Unavailable Rneé Narayanan PA-C Unavailable Allergies Active Allergy Reactions Criticality Noted Date Comments Sandra Chu 10/05/2023 Medications amLODIPine (Norvasc) 10 mg tablet Take by mouth once daily. Active lisinopril 10 mg tablet Take 1 tablet (10 mg) by mouth once daily. Active citalopram (CeleXA) 10 mg tablet Take 1 tablet (10 mg) by mouth once daily. Active busPIRone (Buspar) 5 mg tablet Take by mouth 2 times a day. Active aspirin 81 mg EC tabletIndications: Cervical radiculopathy Take 1 tablet (81 mg) by mouth once daily. Do not fill before April 14, 2024. 4 Active albuterol 90 mcg/actuation inhalerIndications :Cervical radiculopathy Inhale 2 puffs every 4 hours if needed for wheezing or shortness of breath. 18 g 11 4 Active clopidogrel (Plavix) 75 mg tabletIndications: Cervical radiculopathy Take 1 tablet (75 mg) by mouth once daily. Do not fill before April 23, 2024. 4 Active cyclobenzaprine (Flexeril) 10 mg tabletIndications: Muscle spasms of neck Take 1 tablet (10 mg) by mouth every 8 hours if needed for muscle spasms. 90 tablet 4 Active cyclobenzaprine (Flexeril) 10 mg tabletIndications: muscle spasm Take 1 tablet (10 mg) by mouth 3 times a day as needed for muscle spasms for up to 7 days. 21 tablet 4 Active pregabalin (Lyrica) 50 mg capsuleIndications :Status post cervical spinal fusion Take 1 capsule (50 mg) by mouth 2 times a day. 60 capsule 5 Active Active Problems Problem Noted Date Diagnosed Date CAD (coronary artery disease) 02/26/2024 Peripheral vascular disease 02/26/2024 Cervical radiculopathy 01/03/2024 Senile osteoporosis 01/03/2024 Encounters Date Type Department Care Team Description 12/30/2024 Telephone [facility] [address] [phone] Asya Noonan do, MA 11/07/2024 Scanned Document [facility] [address] [facility] [address] [place] [address] Connor Nichole MD 10/21/2024 8:03 PM EDT - 10/21/2024 11:59 PM EDT Hospital Encounter EF RAD EXTERNAL [facility]M [facility] [address] [place] [address] Discharge Disposition: Home 10/13/2024 9:00 AM EDT Office Visit [address] [phone] Camille Harris MD Status post cervical spinal fusion (Primary Dx) 10/13/2024 Travel 10/12/2024 Travel 10/10/2024 Orders Only [facility] [address] [place] [address] René Narayanan PA-C 10/10/2024 Travel 10/10/2024 Scanned Document [address] [phone] Camille Harris MD from Last 3 Months Family History Medical History Relation Name Comments Throat cancer Father bladder cancer Father Heart disease Mother Relation Name Status Comments Father Mother Social History Tobacco Use Types Packs/Day Years Used Date Smoking Tobacco: Every Day Cigarettes 0.5 51.5 Started: 1973 Passive Smoke Exposure: Never Smokeless Tobacco: Never Tobacco Cessation:Ready to Q uit: Yes; Counseling Given: Yes Alcohol Use Standard Drinks/Week Comments Not Currently [...] any time in the past 12 m [facility], were you homeless or living in a alf (including now)? No 04/09/2024 Sex and Gender Information Value Date Recorded Sex Assigned at Male 09/14/2023 6:37 PM EDT Legal Sex Male 3:14 AM EST Gender Identity Male 09/14/2023 6:37 PM EDT Sexual Orientation Straight 09/14/2023 6: 37 PM EDT Last Filed Vital Signs Vital Sign Reading Time Taken Comments Blood Pressure 100/60 10/13/2024 9:06 AM EDT Pulse 75 10/13/2024 9:06 AM EDT Temperature 36.7 C (98.1 F) 04/10/2024 12:11 PM EDT Respiratory Rate 17 04/10/2024 12:11 PM EDT Oxygen Saturation 93% 04/10/2024 9:20 AM EDT Inhaled Oxygen Concentration - - Weight 76.2 kg (168 lb) 10/13/2024 9:06 AM EDT Height 172.7 cm (5' 8 ) 10/13/2024 9:06 AM EDT Body Mass Index 25.54 10/13/2024 9:06 AM EDT Plan of Treatment Upcoming Encounters Date Type Department Care Team (Late st Contact Info) Description 04/06/2025 9:30 AM EDT Office Visit [facility] [address] [phone] Camille Harris MD [address] [place] [address] Health Maintenance Due Date Last Done Comments CT Colonography 1960 Colonoscopy 1960 Colorectal Cancer Screening 1962 FIT-DNA (Cologuard) 1962 FIT 1960 HIV Screening 1960 Lipid Panel 1962 Sigmoidoscopy 1960 Welcome to Medicare Visit 1962 MMR Vaccines (1 of 1 - Standard series) 11/25/1963 Hepatitis C Screening 1980 Pneumococcal Vaccine (1 of 2 - PCV) 1981 Lung Cancer Screening 2012 Zoster Vaccines (1 of 2) 2012 RSV High Risk: (Elderly (60+) or Population) (1 - Risk 60-74 years 1-dose series) 2022 COVID-19 Vaccine (1 - season) 2024 DTaP/Tdap/Td Vaccines (2 - Td or Tdap) 03/15/2024 03/15/2014 Influenza Vaccine (#1) 2025 Diabetes Screening 04/10/2025 04/10/2024, 0 02/11/2024, 02/01/2019, Additional history exists Bone Density Scan 02/12/2026 02/13/2024 HIB Vaccines Aged Out No longer eligi ble based on patient's age to complete this topic HPV Vaccines Aged Out No longer eligi ble based on patient's age to complete this topic Hepatitis A Vaccines Aged Out No long er eligible based on patient's age to complete this topic Hepatitis B Vaccines Aged Out No long er eligible based on patient's age to complete this topic IPV Vaccines Aged Out No longer eligi ble based on patient's age to complete this topic Meningococcal Vaccine Aged Out No chanel lambert eligible based on patient's age to complete this topic Rotavirus Vaccines Aged Out No longer eligible based on patient's age to complete this topic Goals Goal Patient Goal Type Associated Problems Recent Progress Patient-Stated? Author Help patient manage spine surgery Care Plan Patient has spine surgery No Camille Harris MD Medical Devices Implanted Type Area Vending Technician Device Identifier Shelf Expiration Date Model / Serial / Lot Allograft, [employer] 6 X 11 X 14 - [id number] - [id number] Implanted:Qt y: 1 on 04/09/2024 by Rojas Edwards MD at [facility] Spinal Hardware N/A: [employer] 03/14/2028 [id number] / [id number] / Allograft, [employer] 6 X 11 X 14 - [id number] - [id number] Implanted:Qt y: 1 on 04/09/2024 by Rojas Edwards MD at [facility] Spinal Hardware N/A: [employer] 04/29/2028 [id number] / [id number] / Plate, Acp, 1.6v, 2 Level, 34mm - [id number] Implanted:Qt y: 1 on 04/09/2024 by Rojas Edwards MD at [facility] Spinal Hardware N/A: [employer] [id number] / / Screw, Acp, Self Drill, 3.5 X 17mm, Variable - [id number] Implanted:Qt y: 2 on 04/09/2024 by Rojas Edwards MD at [facility] Spinal Hardware N/A: [employer] [id number] / / 3.5 X 19mm Screw Implanted:Qt y: 4 on 04/09/2024 by Rojas Edwards MD at [facility] N/A: [employer] [id number] / / Description:per bill only brent r 04/10 Procedures Procedure Name Priority Date/Time Associated Diagnosis Comments MR TRANSFER OF OUTSIDE FILMS Routine 10/21/2024 8:05 PM EDT XR CERVICAL SPINE 2-3 VIEWS 10/10/2024 2:55 PM EDT BASIC METABOLIC PANEL Routine 04/10/2024 9:19 AM EDT DEXA BONE DENSITY Routine 02/13/2024 10: 50 AM EDT Cervical radiculopathy from Last 3 Months or Most Recently Relevant to Health Maintenance Results * MR transfer of outside films (10/21/2024 8:05 PM EDT) Narrative IMAGING - 10/21/2024 8:05 PM EDT Outside images for comparison or treatment purposes, not interpreted by Radiologists. us Camille Harris MD IMG MRI PROCEDURES Final Result IMAGING * XR cervical spine 2-3 views (10/10/2024 2:55 PM EDT) Anatomical Region Laterality Modality Musculoskeletal, Spine Radiograp hic Imaging 10/10/2024 2:55 PM EDT Narrative 10/10/2024 3:04 PM EDT [facility] [place] [address] [place] [address] XRay Report Signed Patient: Jovani Kong MR#: [id number] : 1960 Acct:[id number] Age/Sex: 63 / M ADM Date: 10/10/24 Loc: XD Room: Type: [facility] Attending Dr: René Narayanan PA-C Copies to: René Narayanan PAC Ordering Provider: René Narayanan PAC Date of Service: 10/10/24 XR/XR cervical spine 2V: M54.12,Z98.1 CERVICAL SPINE - 2 views COMPARISON: 06/24/[address] 10/06/2024 CLINICAL DATA: Left cervical fusion. Tingling at the left shoulder. AP and lateral views were obtained. There is osteopenia. An anterior plate and screws is again seen extending from C5 through C7. The screws at C7 are not completely flush with the plate. No other change in appearance of the hardware has occurred. There is intervening grafting material. No developing fractures or change in alignment are seen. There are similar multilevel degenerative changes. No prevertebral soft tissue swelling is identified. XR/XR cervical spine 2V IMPRESSION: POSTOPERATIVE AND DEGENERATIVE CHANGES, DESCRIBED. NO DEFINITE ACUTE BONY FINDINGS. Impression dictated by: Dorothy Eubanks M.D. 10/10/2024 3:02 PM Dictation Location: [place] [address] Transcribed By: [facility] 10/10/24 1502 Dictated By: Dorothy Eubanks MD 10/10/24 1455 Signed By: <Electronically signed by MD Dorothy Eubanks in OV> 10/10/24 1502 René Narayanan PA-C IMG XR PROCEDURES Final Result * (ABNORMAL) Basic metabolic panel (04/10/2024 9:19 AM EDT) Glucose 159(H) 74 - 99 mg/dL LAB CHEMISTRY METHOD 04/10/2024 10:32 AM EDT [facility] Sodium 138 136 - 145 mmol/L LAB CHEMISTRY METHOD 04/10/2024 10:32 AM EDT [facility] Potassium 4.5 3.5 - 5.3 mmol/L LAB CHEMISTRY METHOD 04/10/2024 10:32 AM EDT [facility] Chloride 103 98 - 107 mmol/L LAB CHEMISTRY METHOD 04/10/2024 10:32 AM EDT [facility] Bicarbonate 26 21 - 32 mmol/L LAB CHEMISTRY METHOD 04/10/2024 10:32 AM EDT [facility] Anion Gap 14 10 - 20 mmol/L LAB CHEMISTRY METHOD 04/10/2024 10:32 AM EDT [facility] Urea Nitrogen 14 6 - 23 mg/dL LAB CHEMISTRY METHOD 04/10/2024 10:32 AM EDT [facility] Creatinine 0.86 0.50 - 1.30 mg/dL LAB CHEMISTRY METHOD 04/10/2024 10:32 AM EDT [facility] eGFR >90 >60 mL/min/1. 73m*2 LAB CHEMISTRY METHOD 04/10/2024 10:32 AM EDT [facility] Comment: Calculations of estimated GFR are performed using the 2020 CKD-EPI Study Refit equation without the race variable for the IDMS-Traceable creatinine methods. https://jasn.asnjournals.org/content/early//ASN.1546722100 Calcium 9.0 8.6 - 10.6 mg/dL LAB CHEMISTRY METHOD 04/10/2024 10:32 AM EDT [facility] Blood Venous blood specimen / Unknown Venipuncture / Unknown 04/10/2024 9:19 AM EDT 04/10/2024 10:03 AM EDT us Camille Harris MD LAB BLOOD ORDERABLES Final Resul t [facility] [address] [place] [address] * XR DEXA bone density (02/13/2024 10:50 AM EDT) 12/29/2024 8:11 AM EDT 12/29/2024 8:11 AM EDT Impressions [facility] - 12/29/2024 8:09 AM EDT DEXA: Moderately low bone mineral density FRAX and Z-Score calculations include ethnicity in determining the score for these values, as determined by organizations such as the NIH, WHO and NOF. All images and detailed analysis are available on the Radiology PACS. MACRO: None Signed by: Ruddy Lopez 12/29/2024 8:09 AM Dictation workstation: [id number] Narrative [facility] - 12/29/2024 8:09 AM EDT Interpreted By: Ruddy Lopez, STUDY: DEXA BONE DENSITY02/13/2024 10:50 am INDICATION: Signs/Symptoms:r/o osteoporosis, NEED AXIAL SKELETON IMAGES.. The patient is a 63 y/o year old M. ,M54.12 Radiculopathy, cervical region COMPARISON: None. ACCESSION NUMBER(S): [id number] ORDERING CLINICIAN: CAMILLE HARRIS TECHNIQUE: DEXA BONE DENSITY FINDINGS: SPINE L1-L4 Bone Mineral Density: 1.162 T-Score -0.6 Z-Score -0.4 Bone Mineral Density change vs baseline: Not reported Bone Mineral Density change vs previous: Not reported LEFT FEMUR -TOTAL Bone Mineral Density: 0.855 T-Score -1.7 Z-Score -1.3 Bone Mineral Density change vs baseline: Not reported Bone Mineral Density change vs previous: Not reported LEFT FEMUR -NECK Bone Mineral Density: 0.818 T-Score -1.9 Z-Score -1.1 Bone Mineral Density change vs baseline: Not reported Bone Mineral Density change vs previous: Not reported World Health Organization (WHO) criteria for post-menopausal, Women: Normal: T-score at or above -1 SD Osteopenia: T-score between -1 and -2.5 SD Osteoporosis: T-score at or below -2.5 SD 10-year Fracture Risk: Major Osteoporotic Fracture 15.9 Hip Fracture 4.7 Note: If no FRAX score is reported, it is because: Some T-score for Spine Total or Hip Total or Femoral Neck at or below -2.5 Procedure Note Ruddy Lopez MD - 12/29/2024 Interpreted By: Ruddy Lopez, STUDY: DEXA BONE DENSITY02/13/2024 10:50 am INDICATION: Signs/Symptoms:r/o osteoporosis, NEED AXIAL SKELETON IMAGES.. The patient is a 63 y/o year old M. ,M54.12 Radiculopathy, cervical region COMPARISON: None. ACCESSION NUMBER(S): [id number] ORDERING CLINICIAN: CAMILLE HARRIS TECHNIQUE: DEXA BONE DENSITY FINDINGS: SPINE L1-L4 Bone Mineral Density: 1.162 T-Score -0.6 Z-Score -0.4 Bone Mineral Density change vs baseline: Not reported Bone Mineral Density change vs previous: Not reported LEFT FEMUR -TOTAL Bone Mineral Density: 0.855 T-Score -1.7 Z-Score -1.3 Bone Mineral Density change vs baseline: Not reported Bone Mineral Density change vs previous: Not reported LEFT FEMUR -NECK Bone Mineral Density: 0.818 T-Score -1.9 Z-Score -1.1 Bone Mineral Density change vs baseline: Not reported Bone Mineral Density change vs previous: Not reported World Health Organization (WHO) criteria for post-menopausal, Women: Normal: T-score at or above -1 SD Osteopenia: T-score between -1 and -2.5 SD Osteoporosis: T-score at or below -2.5 SD 10-year Fracture Risk: Major Osteoporotic Fracture 15.9 Hip Fracture 4.7 Note: If no FRAX score is reported, it is because: Some T-score for Spine Total or Hip Total or Femoral Neck at or below -2.5 IMPRESSION: DEXA: Moderately low bone mineral density FRAX and Z-Score calculations include ethnicity in determining the score for these values, as determined by organizations such as the NIH, WHO and NOF. All images and detailed analysis are available on the Radiology PACS. MACRO: None Signed by: Ruddy Lopez 12/29/2024 8:09 AM Dictation workstation: [id number] us Camille Harris MD IMG DXA PROCEDURES Final Result MMODAL from Last 3 Months or Most Recently Relevant to Health Maintenance Additional Health Concerns Active Problems Noted Date Diagnosed Date Patient has spine surgery 01/09/2024 Insurance [facility] MEDICARE PART A AND B [facility] MEDIC[facility] PART A AND B Advance Directives For more information, please contact: [phone] (Available ) Documents on File Type Date Recorded Patient Family Resource Management Specialist Expl anation Living Will 10/05/2023 9:39 AM * Full Code (Latest Code Status on File) Date Activated Date Inactivated Comments 04/09/2024 6:57 PM Question Answer Comments Plan of Care: Code Status Discussion Completed Decision Maker: Patient * Full Code Date Activated Date Inactivated Comments 04/09/2024 11:50 AM 04/09/2024 6:57 PM Question Answer Comments Plan of Care: Code Status Discussion Completed Decision Maker: Patient Care Teams Marketing Rep Relationship Specialty Start Date End Date Jax Hastings DO [address] [place] [address] PCP - General 01/03/19 [place] [address] [place] [address] Consulting Physician Hematology and Oncology 10/05/23 René Narayanan PA-C [address] [place] [address] Physician Art Class Model Neurosurgery 12/12/23
--- OUTSIDE RECORDS SUMMARY | 2025-01-01 14:25 | XMS_ITS | Encounter Summary ---
Author Organization [facility] Address [address] [place] [address] Phone Care Team Providers Care Plastic Outfitter Name Role Phone Jax Hastings DO Primary Care Provider [phone] Helder Saleem MD Unavailable [phone] René Narayanan PA-C Unavailable [phone] Encounter Details Date Type Department Care Team (Late st Contact Info) Description 12/18/2022 Patient Risk Score ACO Care Management [address] [place] [address] Social History Tobacco Use Types [...] Office Visit [facility] [address] [facility] [address] [place] [address] Doretha Harris MD [address] [place], [place] [phone] documented as of this encounter Visit Diagnoses Not on filedocumented in this encounter Care Teams Plastic Outfitter Relationship Specialty Start Date End Date Jax Hastings DO [address] [place] [address] PCP - General 01/03/19 [place] [address] [place] [address] Consulting Physician Hematology and Oncology 10/05/23 René Narayanan PA-C [address] [place] [address] Physician Historiography Professor Neurosurgery 12/12/23 documented as of this encounter
--- OUTSIDE RECORDS SUMMARY | 2025-01-01 14:25 | XMS_ITS | Encounter Summary ---
Author Organization [facility] Address [address] [place] [address] Phone Care Team Providers Care Oil And Gas Superintendent Name Role Phone Jax Hastings DO Primary Care Provider [phone] Helder Saleem MD Unavailable [phone] René Narayanan PA-C Unavailable [phone] Encounter Details Date Type Department Care Team (Late st Contact Info) Description 01/14/2024 Scanned Document [facility] [address] [place] [address] Doretha Harris MD [address] [place], [place] [id number] Social History Tobacco Use Types Packs/Day Years Used Date Smoking Tobacco: Every Day Cigarettes Passive Smoke Exposure: Never Smokeless Tobacco: Never Alcohol Use Standard Drinks/Week Comments Never 0 (1 standard drink = 0.6 oz pur e alcohol) PHQ-2 Answer Date Recorded Patient Health Questionnaire-2 Score 0 01/03/2024 Sex and Gender Information Value Date Recorded [...] suspected to have Coronavirus/COVID-19? No / Unsure 01/03/2024 1:19 PM EDT documented as of this encounter Plan of Treatment Upcoming Encounters Date Type Department Care Team (Late st Contact Info) Description 04/06/2025 9:30 AM EDT Office Visit [facility] [address] [facility] [address] [place] [address] Doretha Harris MD [address] [place] [address] documented as of this encounter Goals Goal [...] has been complete d for the patient 01/03/2024 1:37 PM EDT documented as of this encounter Care Teams Oil And Gas Superintendent Relationship Specialty Start Date End Date Jax Hastings DO [address] [place] [address] PCP - General 01/03/19 [place] [address] [place] [address] Consulting Physician Hematology and Oncology 10/05/23 René Narayanan PA-C [address] [place] [address] Physician Regional Cra Neurosurgery 12/12/23 documented as of this encounter
--- OUTSIDE RECORDS SUMMARY | 2025-01-01 14:25 | XMS_ITS | Encounter Summary ---
Author Organization [facility] Address [address] [place] [address] Care Team Providers Care Java Spring Developer Name Role Phone Jax Hastings Primary Care Provider [phone] Encounter Details Date Type Department Care Team (Late st Contact Info) Description 12/11/2023 Orders Only [facility] [address] [facility] [address] [place] [phone] Amber Mi MA Social History Tobacco Use Types Packs/Day [...] DERM [address] [place] [address] Anahi Franco PA [address] [place] [address] 02/04/2025 2:30 PM EDT Clinical Support [facility] [address] [place] [address] Oziel Cadena MD [address] [facility] [address] [address] documented as of this encounter Visit Diagnoses Not on filedocumented in this encounter Care Teams Java Spring Developer Relationship Specialty Start Date End Date Jax Hastings DO PCP - General Family Medicine 02/13/23 documented as of this encounter
--- OUTSIDE RECORDS SUMMARY | 2025-01-01 14:25 | XMS_ITS | Encounter Summary ---
Author Organization [facility] Address [address] [facility] [place] [address] Care Team Providers Care High Raw Sugar Boiler Name Role Phone Jax Hastings Neisha JOSÉ Primary Care Provider [phone] Reason for Visit * Reason Onset Date Comments Med Refill 12/29/2024 Encounter Details Date Type Department Care Team (Late st Contact Info) Description 12/29/2024 Refill [facility] [address] [place] [address] Amber Mi MA Cervical stenosis of spinal canal (Primary Dx) Social History Tobacco Use Types Packs/Day Years [...] DERM [address] [place] [address] Anahi Franco PA [address] [place] [address] 02/04/2025 2:30 PM EDT Clinical Support [facility] [address] [facility] [address] [place] [address] Oziel Cadena MD [address] [facility] [address] [address] documented as of this encounter Visit Diagnoses Diagnosis Cervical stenosis of spinal canal- Primary Spinal stenosis in cervical region documented in this encounter Care Teams High Raw Sugar Boiler Relationship Specialty Start Date End Date Jax Hastings DO PCP - General Family Medicine 02/13/23 documented as of this encounter
--- OUTSIDE RECORDS SUMMARY | 2025-01-01 14:25 | XMS_ITS | Encounter Summary ---
Author Organization [facility] Address [address] [place] [address] Phone Care Team Providers Care English Language Learner Teacher Name Role Phone Jax Hastings DO Primary Care Provider [phone] Helder Saleem MD Unavailable [phone] René Naryaanan PA-C Unavailable [phone] Encounter Details Date Type Department Care Team (Late st Contact Info) Description 04/10/2024 Scanned Document [facility] [address] [place] [address] Doretha Harris MD [address] [place], [place] [id number] Social History Tobacco Use Types Packs/Day Years [...] Date Recorded Patient Health Questionnaire-2 Score 0 04/09/2024 PRAPARE - Transportation Answer Date Re corded [...] any time in the past 12 m [facility], were you homeless or living in a group home (including now)? No 04/09/2024 Sex and Gender [...] suspected to have Coronavirus/COVID-19? No / Unsure 04/09/2024 11:58 AM EDT documented as of this encounter Plan of Treatment Upcoming Encounters Date Type Department Care Team (Late st Contact Info) Description 04/06/2025 9:30 AM EDT Office Visit [facility] [id number] [place] [address] Doretha Harris MD [address] [place], [place] [address] documented as of this encounter Goals Goal [...] documented as of this encounter Care Teams English Language Learner Teacher Relationship Specialty Start Date End Date Jax Hastings DO [address] [place] [address] PCP - General 01/03/19 [place] [address] [place] [address] Consulting Physician Hematology and Oncology 10/05/23 René Narayanan, KARLOC [address] [place] [address] Physician Product Safety Administrator Neurosurgery 12/12/23 documented as of this encounter
--- OUTSIDE RECORDS SUMMARY | 2025-01-01 14:25 | XMS_ITS | Encounter Summary ---
Author Organization [facility] Address [address] [place] [address] Care Team Providers Care Lead Advisor Name Role Phone Jax Hastings Primary Care Provider [phone] Encounter Details Date Type Department Care Team (Latest Contact Info) Description 12/24/2024 Travel Social History Tobacco Use Types Packs/Day [...] DERM [address] [place] [address] Anahi Franco PA [address] [place] [address] 02/04/2025 2:30 PM EDT Clinical Support [facility] [address] [place] [address] Oziel Cadena MD [address] [facility] [address] [address] documented as of this encounter Visit Diagnoses Not on filedocumented in this encounter Care Teams Lead Advisor Relationship Specialty Start Date End Date Jax Hastings DO PCP - General Family Medicine 02/13/23 documented as of this encounter
--- OUTSIDE RECORDS SUMMARY | 2025-01-01 14:25 | XMS_ITS | Encounter Summary ---
Author Organization [facility] Address [address] [place] [address] Phone Care Team Providers Care Cut Plug Packer Name Role Phone Jax Hastings DO Primary Care Provider [phone] Helder Saleem MD Unavailable [phone] René Narayanan PA-C Unavailable [phone] Encounter Details Date Type Department Care Team (Late st Contact Info) Description 01/11/2024 Scanned Document [facility] [address] [place] [address] Doretha Harris MD [address] [place], [place] [phone] Social History Tobacco Use Types Packs/Day Years [...] Description 04/06/2025 9:30 AM EDT Office Visit [facility] [address] [facility] [address] [place] [address] Doretha Harris MD [address] [place] [address] documented as of this encounter Goals Goal [...] documented as of this encounter Care Teams Cut Plug Packer Relationship Specialty Start Date End Date Jax Hastings DO [address] [place] [address] PCP - General 01/03/19 [place] [address] [place] [address] Consulting Physician Hematology and Oncology 10/05/23 René Narayanan PA-C [address] [place] [address] Physician Hamper Maker Machine Neurosurgery 12/12/23 documented as of this encounter
--- OUTSIDE RECORDS SUMMARY | 2025-01-01 14:25 | XMS_ITS | Encounter Summary ---
Author Organization [facility] Address [address] [place] [address] Care Team Providers Care Team Leader/Research Psychologist Name Role Phone Jax Hastings DO Primary Care Provider [phone] Reason for Referral * Injection (Routine) - Authorized Specialty Diagnoses / Procedures Referred By Contac t Referred To Contact Neurology Diagnoses Nerve root and plexus disorder, unspecified Procedures GA OFFICE/OUTPATIENT [facility] 60 MINUTES Oziel Cadena MD 1798 [facility] [address] [address] Phone: tel: fax: Oziel Cadena MD [address] [address] Phone: tel: fax: Referral ID Status Reason Start Date Expiration Date Visits Requested Visits Authorized [id number] Authorized Perform Procedure 12/24/2024 06/28/2025 1 1 Encounter Details Date Type Department Care Team (Late st Contact Info) Description 12/30/2024 Telephone [facility] NEUR [address] [address] Ary Lugo, RT. R Social History Tobacco Use Types Packs/Day Years [...] encounter Miscellaneous Notes * Telephone Encounter - RT Conchita. R - 12/30/2024 3:59 [place] [id number] documented in this encounter Plan of Treatment Upcoming Encounters Date Type Department Care Team (Late st Contact Info) Description 01/08/2025 10:20 AM EDT Office Visit [facility] [address] [place] [address] Anahi Franco PA [address] [place] [address] 02/04/2025 2:30 PM EDT Clinical Support [facility] [address] [place] [address] Oziel Cadena MD 6[address] [facility] [address] [id number] Scheduled Referrals Name Type Priority Associated Diagnoses Orde r Schedule Ambulatory referral to Neurology Outpatient Referral Routine Nerve root and plexus disorder, unspecified Expected: 12/30/2024 (Approximate), Expires: 07/02/2025 documented as of this encounter Visit Diagnoses Diagnosis Nerve root and plexus disorder, unspecified- Primary documented in this encounter Care Teams Team Leader/Research Psychologist Relationship Specialty Start Date End Date Jax Hastings DO PCP - General Family Medicine 02/13/23 documented as of this encounter
--- OUTSIDE RECORDS SUMMARY | 2025-01-01 14:25 | XMS_ITS | Encounter Summary ---
Author Organization [facility] Address [address] [place] [address] Phone Care Team Providers Care Per Diem Physical Therapist Assistant Name Role Phone Jax Hastings DO Primary Care Provider [phone] Helder Saleem MD Unavailable [phone] René Narayanan PA-C Unavailable [phone] Encounter Details Date Type Department Care Team (Late st Contact Info) Description 01/18/2023 Patient Risk Score ACO Care Management [address] [place] [address] Social History Tobacco Use Types [...] 9:30 AM EDT Office Visit [facility] [address] [facility] [address] [place] [address] Doretha Harris MD [address]255 [place], [place] [phone] documented as of this encounter Visit Diagnoses Not on filedocumented in this encounter Care Teams Per Diem Physical Therapist Assistant Relationship Specialty Start Date End Date Jax Hastings DO [address] [place] [address] PCP - General 01/03/19 [place] [address] [place] [address] Consulting Physician Hematology and Oncology 10/05/23 René Narayanan PA-C [address] [place] [address] Physician Keyseating Machine Set Up Operator Neurosurgery 12/12/23 documented as of this encounter
--- OUTSIDE RECORDS SUMMARY | 2025-01-01 14:25 | XMS_ITS | Clinical Summary ---
Author Organization [facility] Address [address] [facility], [address] [place] [address] Care Team Providers Care Lace Inspector Name Role Phone Jax Hastings DO Primary Care Provider [phone] Allergies Active Allergy Reactions Criticality Noted Date Comments Cephalexin Hives 11/25/2018 Other Reaction(s): hives, Unknown Medications albuterol sulfate HFA (PROVENTIL;VENT ANN;PROAIR) 108 (90 Base) MCG/ACT inhaler Inhale 2 puffs into the lungs every 4 hours as needed 4 Active amLODIPine (NORVASC) 5 MG tablet Take 1 tablet by mouth daily Active azithromycin (ZITHROMAX) 250 MG tablet take 2 tablets by mouth TODAY then take 1 tablet DAILY FOR 4 DAYS 4 Active clopidogrel (PLAVIX) 75 MG tablet Take 1 tablet by mouth daily 4 Active HYDROcodone-vanda taminophen (NORCO) 5-325 MG per tablet take 1 tablet orally daily NEEDED FOR PAIN 3 Active ibuprofen (ADVIL;MOTRIN) 600 MG tablet ibuprofen 600 mg tablet take 1 tablet by mouth every 8 hours NEEDED FOR PAIN Active hydrOXYzine HCl (ATARAX) 25 MG tablet hydroxyzine HCl 25 mg tablet take 1 to 2 tablets by mouth at bedtime if needed 2 Active indomethacin (INDOCIN SR) 75 MG extended release capsule indomethacin ER 75 mg capsule,extended release take 1 capsule by mouth once daily with food Active montelukast (SINGULAIR) 10 MG tablet montelukast 10 mg tablet take 1 tablet by mouth at bedtime 03/20/202 3 Active mirtazapine (REMERON) 15 MG tablet take 1/2 tablet by mouth at bedtime Active tiZANidine (ZANAFLEX) 4 MG capsule take 1 capsule orally twice a day if needed for MUSCLE SPASTICITY Active Active Problems No known active problems Social History Tobacco Use Types Packs/Day Years Used Date Smoking Tobacco: Every Day Cigarettes Smokeless Tobacco: Never Tobacco Cessation:Ready to Q uit: No; Counseling Given: Yes Sex and Gender Information Value Date Recorded Sex Assigned at Not on file Legal Sex Male 9:50 AM EST Gender Identity Not on file Sexual Orientation Not on file Last Filed Vital Signs Vital Sign Reading Time Taken Comments Blood Pressure 136/78 11/05/2023 10:44 AM EDT Pulse - - Temperature 36.3 C (97.4 F) 11/05/2023 10:44 AM EDT Respiratory Rate - - Oxygen Saturation - - Inhaled Oxygen Concentration - - Weight 81.6 kg (180 lb) 11/05/2023 10:44 AM EDT Height 172.7 cm (5' 8 ) 11/05/2023 10:44 AM EDT Body Mass Index 27.37 11/05/2023 10:44 AM EDT Plan of Treatment Health Maintenance Due Date Last Done Comments Depression Screen 1974 HIV screen 1977 Hepatitis C screen 1980 Pneumococcal 50+ years Vacci ne (1 of 2 - PCV) 1981 Lipids 2002 Colonoscopy 11/25/2007 Colorectal Cancer Screen 11/25/2007 FIT/FOBT: Average risk 11/25/2007 Fecal-DNA (Cologuard): [place] ge risk 11/25/2007 Sigmoidoscopy/CT colonography 11/25/2007 Shingles vaccine (1 of 2) 2012 COVID-19 Vaccine (3 - 2023-2 5 season) 2024 01/21/2021, 12/30/2020 DTaP/Tdap/Td vaccine (2 - Td or Tdap) 03/15/2024 03/15/2014 Flu vaccine (#1) 01/16/2025 Respiratory Syncytial Virus (RSV) or age 60 yrs+ (1 - 1-dose 75+ series) 2037 Hepatitis A vaccine Aged Out No longe r eligible based on patient's age to complete this topic Hepatitis B vaccine Aged Out No longe r eligible based on patient's age to complete this topic Hib vaccine Aged Out No longer eligi ble based on patient's age to complete this topic Meningococcal (ACWY) vaccine Aged Out No longer eligible based on patient's age to complete this topic Meningococcal B vaccine Aged Out No l onger eligible based on patient's age to complete this topic Polio vaccine Aged Out No longer elig ible based on patient's age to complete this topic Insurance [facility] [place] [address] [place] [address] Care Teams Lace Inspector Relationship Specialty Start Date End Date Jax Hastings DO [address] [facility] [address] [place] [address] PCP - General Family Medicine 06/13/23
--- OUTSIDE RECORDS SUMMARY | 2025-01-01 14:25 | XMS_ITS | Encounter Summary ---
Author Organization [facility] Address [address] [place] [address] Phone Care Team Providers Care Treasury Accountant Name Role Phone Jax Hastings DO Primary Care Provider [phone] Helder Saleem MD Unavailable [phone] René Narayanan PA-C Unavailable [phone] Encounter Details Date Type Department Care Team (Late st Contact Info) Description 10/10/2024 Scanned Document [facility] [address] [facility] [address] [place] [address] Doretha Harris MD [address] [place], [place] [id number] Social History Tobacco Use Types Packs/Day Years [...] any time in the past 12 m [facility], were you homeless or living in a snf (including now)? No 04/09/2024 Sex and Gender [...] AM EDT documented as of this encounter Functional Status * Over the past 2 weeks, how often have you been bothered by any of the following problems? Question Answer Date of Assessment Author Little interest or pleasure in doing things Several days 10/13/2024 9:06 AM EDT Asya Unger MA Feeling down, depressed, or hopeless Several days 10/13/2024 9:06 AM EDT Asya Ashley MA Patient Health Questionnaire-2 Score 2 10/13/2024 9:06 AM EDT Asya Ashley MA * If you checked off any problems on this questionnaire so far, Question Answer Date of Assessment Author How difficult have these problems made it for you to do your work, take care of things at home, or get along with other people? Somewhat difficult 10/13/2024 9:06 AM EDT Asya Ashley MA documented as of this encounter Plan of Treatment Upcoming Encounters Date Type Department Care Team (Late st Contact Info) Description 04/06/2025 9:30 AM EDT Office Visit [facility] [address] [facility] [address] [place] [address] Doretha Harris MD [address] [place] [address] documented as of this encounter Goals Goal [...] has been complete d for the patient 06/30/2024 8:58 AM EST documented as of this encounter Care Teams Treasury Accountant Relationship Specialty Start Date End Date Jax Hastings DO [address] [place] [address] PCP - General 01/03/19 [place] [address] [place] [address] Consulting Physician Hematology and Oncology 10/05/23 eRné Narayanan PA-C [address] [place] [address] Physician Surveillance System Monitor Neurosurgery 12/12/23 documented as of this encounter
--- OUTSIDE RECORDS SUMMARY | 2025-01-01 14:26 | XMS_ITS | Encounter Summary ---
Author Organization [facility] Address [address] [place] [address] Care Team Providers Care Career Manager Name Role Phone Jax Hastings Primary Care Provider [phone] Jax Hastings Unavailable Oziel Cadena MD Unavailable [phone] Source Comments In the event this information is protected by the Federal Confidentiality of Alcohol and Drug AbusePatient Records regulations: The Federal rules restrict any use of the information to criminally investigate or prosecute any alcohol or drug abuse patient.[facility] Encounter Details Date Type Department Care Team (Latest Contact Info) Description 11/25/2018 H&P External-NonCCF Provider, External, BILLY Do not enter address information under generic External Provider. Social History Tobacco Use Types Packs/Day Years Used Date Smoking Tobacco: Every Day Cigarettes Smokeless Tobacco: Never Alcohol Use Standard Drinks/Week Comments Not Currently 0 (1 standard drink = 0.6 oz pur e alcohol) Sex and Gender Information Value Date Recorded Sex Assigned at Male 09/20/2022 2:46 PM EDT Legal Sex Male 10:55 AM EDT Gender Identity Male 09/20/2022 2:46 PM EDT Sexual Orientation Straight 09/20/2022 2: 46 PM EDT documented as of this encounter Plan of Treatment Upcoming Encounters Date Type Department Care Team (Latest Contact Info) Description 10/30/2025 10:15 AM EDT Appointment Radiology Pet CT [address] [place] [address] [place] [address] Ct [address] with contrast and lab 11/06/2025 9:00 AM EDT Visit (SP) Office Hematology/Oncology [address] [place] [address] [place] [address] Memo Acevedo MD [address] [place] [address] [place] [address] 1 year follow up for ct and lab results documented as of this encounter Visit Diagnoses Not on filedocumented in this encounter Care Teams Career Manager Relationship Specialty Start Date End Date Jax Hastings [address] [place] [phone] PCP - General Family Medicine 11/20/18 Jax Hastings [address] [place] [phone] Referring Family Medicine 11/20/18 Oziel Cadena MD 53[address] [facility] [address] [address] Referring Neurology 08/18/22 documented as of this encounter
--- OUTSIDE RECORDS SUMMARY | 2025-01-01 14:26 | XMS_ITS | Encounter Summary ---
Author Organization [facility] Address [address] [facility] [place] [address] Care Team Providers Care It Communications Specialist Name Role Phone Jax Hastings DO Primary Care Provider [phone] Encounter Details Date Type Department Care Team (Late st Contact Info) Description 04/03/2023 Abstract [facility] NE[facility]O [address], [place] [address] Nikole Mota, BARTENDER [address], [place] [address] Social History Tobacco Use Types Packs/Day Years [...] Orientation Straight 11/22/2022 2: 37 PM EDT COVID-19 Exposure Response Date Recorded In the last 10 days, have yo u been in contact with someone who was confirmed or suspected to have Coronavirus/COVID-19? No / Unsure 04/03/2023 10:05 AM EDT documented as of this encounter Plan of Treatment Upcoming Encounters Date Type Department Care Team (Late st Contact Info) Description 01/08/2025 10:20 AM EDT Office Visit [facility] [address] [place] [address] Anahi Franco PA [address] [place] [address] 02/04/2025 2:30 PM EDT Clinical Support [facility] [address] [place] [address] Oziel Cadena MD [address] [facility] [address] [address] documented as of this encounter Visit Diagnoses Not on filedocumented in this encounter Care Teams It Communications Specialist Relationship Specialty Start Date End Date Jax Hastings DO PCP - General Family Medicine 02/13/23 documented as of this encounter
--- OUTSIDE RECORDS SUMMARY | 2025-01-01 14:26 | XMS_ITS | Encounter Summary ---
Author Organization [facility] Address [address] [place] [address] Care Team Providers Care Wallpaperer Name Role Phone AndreaJax meneses Neisha JOSÉ Primary Care Provider [phone] Encounter Details Date Type Department Care Team (Late st Contact Info) Description 02/19/2023 Abstract [facility] [address] [place] [address] Mary Henderson, MARINE RESOURCE ECONOMIST [address] [place] [address] Social History Tobacco Use Types Packs/Day Years Used Date Smoking Tobacco: Every Day Cigarettes Smokeless Tobacco: Never Tobacco Cessation:Ready to Q uit: Not Asked; Counseling Given: Not Answered Alcohol Use Standard Drinks/Week Comments Never 0 [...] 01/08/2025 10:20 AM EDT Office Visit [facility] [address] [place] [address] Anahi Franco PA [address] [place] [address] 02/04/2025 2:30 PM EDT Clinical Support [facility] [address] [address] Oziel Cadena MD 0698 [facility] [address] [address] documented as of this encounter Visit Diagnoses Not on filedocumented in this encounter Care Teams Wallpaperer Relationship Specialty Start Date End Date Jax Hastings DO PCP - General Family Medicine 02/13/23 documented as of this encounter
--- OUTSIDE RECORDS SUMMARY | 2025-01-01 14:26 | XMS_ITS | Clinical Summary ---
Author Organization [facility] Address [address] [place] [address] Care Team Providers Care Graphic Design Assistant Name Role Phone Jax Hastings Primary Care Provider [phone] Jax Hastings Unavailable [phone] Oziel Cadena MD Unavailable [phone] Allergies Active Allergy Reactions Criticality Noted Date Comments Cephalexin Hives 11/25/2018 Medications citalopram (CELEXA) 40 mg tablet Take 40 mg by mouth once daily. 0 9 Active Multivitamin capsule Take 1 capsule by mouth once daily. Active iv contrast (will be provided with radiology test)Indicatio ns:Malignant neoplasm of connective and soft tissue of [...] contrast administration guidelines link. 1 Each 0 Active Additional Information Patient not taking.Reported on 11/07/2024 hydrOXYzine HCl (ATARAX) 25 mg tablet take 1 to 2 tablets by mouth at bedtime if needed 2 Active mirtazapine (REMERON) 15 mg tablet Take by mouth daily at bedtime. 3 Active montelukast (SINGULAIR) 10 mg tablet Take 10 mg by mouth daily at bedtime. 3 Active amLODIPine (NORVASC) 10 mg tablet Take 10 mg by mouth once daily. Active atorvastatin (LIPITOR) 10 mg tablet Take 1 tablet by mouth once daily. Active lisinopril (ZESTRIL) 10 mg tablet Take 1 tablet by mouth every afternoon. 4 Active HYDROcodone-ac etaminophen (NORCO) 5-325 mg per tablet take 1 tablet orally daily NEEDED FOR PAIN MUST LAST 30 DAYS 3 Active ezetimibe (ZETIA) 10 mg tablet Take 10 mg by mouth. 3 Active clotrimazole-b etamethasone (LOTRISONE) cream Active clopidogrel (PLAVIX) 75 mg tablet Take 75 mg by mouth. 4 Active pravastatin (PRAVACHOL) 40 mg tablet Take 40 mg by mouth. 4 Active iv contrast (will be provided with radiology test)Indicatio ns:Primary squamous cell carcinoma of head and neck [...] the CT contrast administration guidelines link. 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 Lung nodules 10/13/2021 Glioma of brain 10/13/2021 Encounters Date Type Department Care Team Description 11/07/2024 9:20 AM EDT Visit (SP) Office Hematology/Oncology [address] [place] [address] Memo Acevedo MD 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) 11/07/2024 Travel 11/03/2024 7:48 AM EDT - 11/03/2024 11:59 PM EDT Hospital Encounter Radiology Pet CT [address] [place] [address] 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] Discharge Disposition: Home 11/03/2024 Telephone Hematology/Oncology [address] [place] [address] [place] [address] Memo Acevedo MD Orders 10/27/2024 Travel from Last 3 Months Immunizations Immunization Administration Dates Next Due tetanus diphtheria pertussis (Tdap) vaccine, age 7+ yr (ADACEL, BOOSTRIX) 03/15/2014 Family History Medical History Relation Comments Cancer Father Bladder cancer, Larynx cancer Cancer Paternal Grandfather cancer Relation Status Comments Father Paternal Grandfather Social History Tobacco Use Types Packs/Day Years Used Date Smoking Tobacco: Former Cigarettes 1.5 40 Smokeless Tobacco: Never Comments:quit smoking 01/2019 Alcohol Use Standard Drinks/Week Comments Not Currently 0 (1 standard drink = 0.6 oz pur e alcohol) quit 2001 PHQ-2 Answer Date Recorded PHQ-2 score 2 11/05/2024 Area Deprivation Index Answer Date Jaspreet rded National Score (1-100), lower number is lower ri sk 71 11/03/2022 State Score (1-10), lower number is lower risk 5 11/03/2022 Data from: https://www.neighborhoodatlas.medicine.[facility].edu/. Last address used for calculation [address] [place] [address] 11/03/2022 Sex and Gender Information Value Date Recorded Sex Assigned at Male 09/20/2022 2:46 PM EDT Legal Sex Male 10:55 AM EDT Gender Identity Male 09/20/2022 2:46 PM EDT Sexual Orientation Straight 09/20/2022 2: 46 PM EDT Occupation Industry Job Start Date Job End Date [employer] Not on file Not on file Not on file [employer] Not on file Not on file Not on file Last Filed Vital Signs Vital Sign Reading Time Taken Comments Blood Pressure 115/89 11/07/2024 9:23 AM EDT Pulse 72 11/07/2024 9:23 AM EDT Temperature 36.4 C (97.5 F) 11/07/2024 9:23 AM EDT Respiratory Rate 16 11/07/2024 9:23 AM EDT Oxygen Saturation 97% 11/07/2024 9:23 AM EDT Inhaled Oxygen Concentration - - Weight 79.3 kg (174 lb 13.2 oz) 11/07/2024 9:23 AM EDT Height 170.6 cm (5' 7.17 ) 11/07/2024 9:23 AM ED T Body Mass Index 27.25 11/07/2024 9:23 AM EDT Plan of Treatment Upcoming Encounters Date Type Department Care Team (Latest Contact Info) Description 10/30/2025 10:15 AM EDT Appointment Radiology Pet CT [address] [place] [address] Ct CN with contrast and lab 11/06/2025 9:00 AM EDT Visit (SP) Office Hematology/Oncology [address] [place] [address] Memo Acevedo MD [address] [place] [address] 1 year follow up for ct and lab results Health Maintenance Due Date Last Done Comments Anxiety Screening 1980 Depression Screening 1980 HIV Screening 1980 Hepatitis C Screening [address] Colonography 11/25/2007 Cologuard (FIT-DNA) 11/25/2007 Colonoscopy 11/25/2007 Colorectal Cancer Screening 11/25/2007 Fecal Occult Blood 11/25/2007 Prostate Cancer Screening Discussion 11/25/2007 Sigmoidoscopy 11/25/2007 Pneumococcal Vaccine: 50+ (1 of 1 - PCV) 2012 Shingrix Vaccine (1 of 2) 2012 Covid-19 Vaccine (3 - 2023-2 5 season) 2024 01/21/2021, 12/30/2020 Medicare Annual Wellness Visit 02/17/2024 DTaP,Tdap,Td Vaccine (2 - Td or Tdap) 03/15/2024 03/15/2014 Influenza Vaccine (#1) 2025 Diabetes Screening 04/10/2027 04/10/2024, 0 02/11/2024, 10/26/2023, Additional history exists RSV Vaccine (1 - 1-dose 75+ series) 2037 Procedures Procedure Name Priority Date/Time Associated Diagnosis Comments CT CHEST W IVCON Routine 11/03/2024 8:42 AM EDT 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) CT NECK SOFT TISSUE W IVCON Routine 11/03/2024 8:42 AM EDT 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) CBC + DIFF Routine 11/03/2024 8:22 AM EDT 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) EXTERNAL LAB 11/03/2024 8:10 AM EDT EXTERNAL LAB 11/03/2024 8:09 AM EDT COMPREHENSIVE METABOLIC PANEL Routine 10/26/2023 9:02 AM EDT 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) from Last 3 Months or Most Recently Relevant to Health Maintenance Results * CT CHEST W IVCON (11/03/2024 8:42 AM EDT) Anatomical Region Laterality Modality Chest Nuclear Medicine , Nuclear Medicine 11/03/2024 8:41 AM EDT Impressions 11/03/2024 12:25 PM EDT IMPRESSION: 1. No CT evidence of new metastatic disease in the chest. 2. Pulmonary nodules measuring up to 3 mm are unchanged. No new or enlarging pulmonary nodules are identified. Transcribe Date/Time: Nov 03 2024 12:08P Dictated by: JANEY FOURNIER MD This examination was interpreted and the report reviewed and electronically signed by: JANEY FOURNIER MD on Nov 03 2024 12:22PM EST Thank you for allowing us to participate in the care of your patient. Should there be any questions regarding this interpretation, please call [phone]. If you are unable to reach us at the number above, please feel free to contact [facility] at [phone]. Narrative 11/03/2024 12:25 PM EDT * * *Final Report* * * DATE OF EXAM: Nov 03 2024 8:41AM [facility] 0539 - CT CHEST W [...] contrast. MQ: CTCW_6 Contrast: 100 mL Omnipaque [address] Radiation dose: Integrated Dose-length product (DLP) for this visit = 901 mGy*cm CT Dose Reduction Employed: Automated exposure control (AEC) Comparison: Multiple previous chest CTs, the most recent dated 10/26/2023 RESULT: Limitations: None. Lines, tubes, and devices: None. Lung parenchyma and airways: A 6-7 mm area of groundglass opacity containing a central area of lucency on series 4 image 68 is unchanged from October 2023, it has decreased in density from more remote previous CTs and is favored to be infectious/inflammatory. A 3 mm left upper lobe nodule on series 4 image 40 is unchanged. A 2-3 mm right upper lobe nodule on series 4 image 60 is unchanged. No new pulmonary nodules or masses are identified. No airspace consolidation. The central airways are patent. Pleural space: No pleural effusion. No pleural thickening. Lower neck, lymph nodes, and mediastinum: The imaged thyroid gland is normal. No lymphadenopathy in the supraclavicular, axillary, mediastinal, or hilar regions. Heart, pericardium, and thoracic vessels: The thoracic aorta and main pulmonary artery are normal in caliber. The cardiac chambers are normal in size. Mild coronary artery atherosclerotic calcifications are noted, although the study is not optimized for coronary assessment. No pericardial effusion or thickening. Bones and soft tissues: Lower cervical spine anterior fusion hardware noted. Mild multilevel thoracic spine degenerative disease. No destructive skeletal lesion is present. Upper abdomen: The included images of the upper abdomen are unremarkable. Localizer images: No additional findings. Procedure Note Provider, [facility] - 11/03/2024 * * *Final Report* * * DATE OF EXAM: Nov 03 2024 8:41AM [facility] 0539 - CT CHEST W [...] contrast. MQ: CTCW_6 Contrast: 100 mL Omnipaque [address] Radiation dose: Integrated Dose-length product (DLP) for this visit = 901 mGy*cm CT Dose Reduction Employed: Automated exposure control (AEC) Comparison: Multiple previous chest CTs, the most recent dated10/26/2023 RESULT: Limitations: None. Lines, tubes, and devices: None. Lung parenchyma and airways: A 6-7 mm area of groundglass opacity containing a central area of lucency on series 4 image 68 is unchanged from October 2023, it has decreased in density from more remote previous CTs and is favored to be infectious/inflammatory. A 3 mm left upper lobe nodule on series 4 image 40 is unchanged. A 2-3 mm right upper lobe nodule on series 4 image 60 is unchanged. No new pulmonary nodules or masses are identified. No airspace consolidation. The central airways are patent. Pleural space: No pleural effusion. No pleural thickening. Lower neck, lymph nodes, and mediastinum: The imaged thyroid gland is normal. No lymphadenopathy in the supraclavicular, axillary, mediastinal, or hilar regions. Heart, pericardium, and thoracic vessels: The thoracic aorta and main pulmonary artery are normal in caliber. The cardiac chambers are normal in size. Mild coronary artery atherosclerotic calcifications are noted, although the study is not optimized for coronary assessment. No pericardial effusion or thickening. Bones and soft tissues: Lower cervical spine anterior fusion hardware noted. Mild multilevel thoracic spine degenerative disease. No destructive skeletal lesion is present. Upper abdomen: The included images of the upper abdomen areunremarkable. Localizer images: No additional findings. IMPRESSION IMPRESSION: 1. No CT evidence of new metastatic disease in the chest. 2. Pulmonary nodules measuring up to 3 mm are unchanged. No new or enlarging pulmonary nodules are identified. Transcribe Date/Time: Nov 03 2024 12:08P Dictated by: JANEY FOURNIER MD This examination was interpreted and the report reviewed and electronically signed by: JANEY FOURNIER MD on Nov 03 2024 12:22PM EST Thank you for allowing us to participate in the care of your patient. Should there be any questions regarding this interpretation, please call [phone]. If you are unable to reach us at the number above, please feel free to contact [facility] at [phone]. us Memo Acevedo MD CT-PAMA Final Result * CT NECK SOFT TISSUE W IVCON (11/03/2024 8:42 AM EDT) Anatomical Region Laterality Modality Neck Nuclear Medicine , Nuclear Medicine 11/03/2024 8:41 AM EDT Impressions 11/03/2024 9:03 AM EDT IMPRESSION: Primary: Category 1. Expected post-treatment changes in the neck without evidence of recurrent disease in the primary site. Neck: Category 1. No evidence of abnormal lymph nodes. [email or web address] Transcribe Date/Time: Nov 03 2024 8:53A Dictated by: BENJAMIN AL MD This examination was interpreted and the report reviewed and electronically signed by: BENJAMIN AL MD on Nov 03 2024 9:01AM EST Thank you for allowing us to participate in the care of your patient. Should there be any questions regarding this interpretation, please call [phone]. If you are unable to reach us at the number above, please feel free to contact [facility] at [phone]. Narrative 11/03/2024 9:03 AM EDT * * *Final Report* * * DATE OF EXAM: Nov 03 2024 8:41AM [facility] 0013 - CT NECK SOFT TISSUE W IVCON / PROCEDURE REASON: 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) * * * * Physician Interpretation * * * * RESULT: CT NECK SOFT TISSUE W IVCON History: 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) Technique: A series of contiguous helical scans were performed from the skull base to the aortic arch with intravenous contrast. Contrast: Omnipaque 350. Contrast Dose: 100 cc Route of Administration: IV CT Radiation dose: Integrated Dose-length product (DLP) for this visit = 901 mGy*cm. CT Dose Reduction Employed: Automated exposure control (AEC) COMPARISON: CT neck 10/26/2023 RESULT: Postoperative/Treatment Change: Treatment changes including reticulation of the subcutaneous and deep fat, thickening of the skin and platysma, and mucosal edema. Aerodigestive tract: Normal within constraints of artifact from dental amalgam. Major salivary glands: Normal. Thyroid gland: Normal. Lymph Nodes: No cervical lymphadenopathy by size criteria. Carotid/Parapharyngeal/Retropharyngeal Spaces: Mild atherosclerosis of the left carotid bifurcation and moderate atherosclerosis of the right carotid bifurcation. Otherwise patent extracranial carotid systems and internal jugular veins bilaterally. Otherwise normal. Orbits, Face and Skull Base: Paranasal sinuses, mastoid air cells, and middle ear cavities are clear. Otherwise normal. Imaged intracranial contents: No intracranial mass effect or hydrocephalus. No abnormal intracranial enhancement. Cervical spine and remaining osseous structures: Postsurgical changes with anterior plate and screws device with interdisc spacers at C5-C7. Mild to moderate cervical spondylosis. Lung apices: Clear of consolidation or mass. Other: Not applicable. Procedure Note Provider, [facility] - 11/03/2024 * * *Final Report* * * DATE OF EXAM: Nov 03 2024 8:41AM [facility] 0013 - CT NECK SOFT TISSUE W IVCON / PROCEDURE REASON: 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) * * * * Physician Interpretation * * * * RESULT: CT NECK SOFT TISSUE W IVCON History: 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) Technique: A series of contiguous helical scans were performed from the skull base to the aortic arch with intravenous contrast. Contrast: Omnipaque 350. Contrast Dose: 100 cc Route of Administration: IV CT Radiation dose: Integrated Dose-length product (DLP) for this visit = 901 mGy*cm. CT Dose Reduction Employed: Automated exposure control (AEC) COMPARISON: CT neck 10/26/2023 RESULT: Postoperative/Treatment Change: Treatment changes including reticulation of the subcutaneous and deep fat, thickening of the skin and platysma, and mucosal edema. Aerodigestive tract: Normal within constraints of artifact from dental amalgam. Major salivary glands: Normal. Thyroid gland: Normal. Lymph Nodes: No cervical lymphadenopathy by size criteria. Carotid/Parapharyngeal/Retropharyngeal Spaces: Mild atherosclerosis of the left carotid bifurcation and moderate atherosclerosis of the right carotid bifurcation. Otherwise patent extracranial carotid systems and internal jugular veins bilaterally. Otherwise normal. Orbits, Face and Skull Base: Paranasal sinuses, mastoid air cells, and middle ear cavities are clear. Otherwise normal. Imaged intracranial contents: No intracranial mass effect or hydrocephalus. No abnormal intracranial enhancement. Cervical spine and remaining osseous structures: Postsurgical changes with anterior plate and screws device with interdisc spacers at C5-C7. Mild to moderate cervical spondylosis. Lung apices: Clear of consolidation or mass. Other: Not applicable. IMPRESSION IMPRESSION: Primary: Category 1. Expected post-treatment changes in the neck without evidence of recurrent disease in the primary site. Neck: Category 1. No evidence of abnormal lymph nodes. [email or web address] Transcribe Date/Time: Nov 03 2024 8:53A Dictated by: BENJAMIN AL MD This examination was interpreted and the report reviewed and electronically signed by: BENJAMIN AL MD on Nov 03 2024 9:01AM EST Thank you for allowing us to participate in the care of your patient. Should there be any questions regarding this interpretation, please call [phone]. If you are unable to reach us at the number above, please feel free to contact [facility] at [phone]. us Memo Acevedo MD CT-PAMA Final Result * COMPLETE BLOOD COUNT AND DIFFERENTIAL (11/03/2024 8:22 AM EDT) WBC 6.03 3.70 - 11.00 k/uL 11/03/2024 8:27 AM EDT [facility] RBC 4.26 4.20 - 6.00 m/uL 11/03/2024 8:27 AM EDT [facility] Hemoglobin 13.6 13.0 - 17.0 g/dL 11/03/2024 8:27 AM EDT [facility] Hematocrit 40.0 39.0 - 51.0 % 11/03/2024 8:27 AM EDT [facility] MCV 93.9 80.0 - 100.0 fL 11/03/2024 8:27 AM EDT [facility] MCH 31.9 26.0 - 34.0 pg 11/03/2024 8:27 AM EDT [facility] MCHC 34.0 30.5 - 36.0 g/dL 11/03/2024 8:27 AM EDT [facility] RDW-CV 14.6 11.5 - 15.0 % 11/03/2024 8:27 AM EDT [facility] Platelet Count 281 150 - 400 k/uL 11/03/2024 8:27 AM EDT [facility] MPV 11.0 9.0 - 12.7 fL 11/03/2024 8:27 AM EDT [facility] Neutrophils % 44.2 % 11/03/2024 8:27 AM EDT [facility] Abs Neut 2.67 1.45 - 7.50 k/uL 11/03/2024 8:27 AM EDT [facility] Lymphocytes % 45.3 % 11/03/2024 8:27 AM EDT [facility] Abs Lymph 2.73 1.00 - 4.00 k/uL 11/03/2024 8:27 AM EDT [facility] Monocytes % 6.6 % 11/03/2024 8:27 AM EDT [facility] Abs [place] 0.40 <0.87 k/uL 11/03/2024 8:27 AM EDT [facility] Eosinophils % 2.7 % 11/03/2024 8:27 AM EDT [facility] Abs Eosin 0.16 <0.46 k/uL 11/03/2024 8:27 AM EDT [facility] Basophils % 1.0 % 11/03/2024 8:27 AM EDT [facility] Abs Baso 0.06 <0.11 k/uL 11/03/2024 8:27 AM EDT [facility] Immature Granulocytes % 0.2 % 11/03/2024 8:27 AM EDT [facility] Abs Immature Gran <0.03 <0.10 k/uL 025 8:27 AM EDT [facility] NRBC 0.0 /100 WBC 11/03/2024 8:27 AM EDT [facility] Absolute nRBC <0.01 <0.01 k/uL 11/03/2024 8:27 AM EDT [facility] Diff Type Auto 11/03/2024 8:27 AM EDT [facility] Blood BLOOD SPECIMEN / Unknown Venipuncture / Unknown 11/03/2024 8:22 AM EDT 11/03/2024 8:24 AM EDT Elizabeth SAAVEDRA-C LABORATORY Final Result [facility] [address] [place] [address] * EXTERNAL LAB (11/03/2024 8:10 AM EDT) Only the most recent of2 resultswithin the time period is included. External Provider PA-C LABORATORY Final Res ult * (ABNORMAL) COMP METABOLIC PANEL (10/26/2023 9:02 AM EDT) Protein, Total 6.4 6.3 - 8.0 g/dL 10/26/2023 9:39 AM EDT [facility] Albumin 4.3 3.9 - 4.9 g/dL 10/26/2023 9:39 AM EDT [facility] Calcium, Total 9.9 8.5 - 10.2 mg/dL 10/26/2023 9:39 AM EDT [facility] Bilirubin, Total 0.5 0.2 - 1.3 mg/dL 10/26/2023 9:39 AM EDT [facility] Alkaline Phosphatase 75 38 - 113 U/L 10/26/2023 9:39 AM [facility] AST 9(L) 14 - 40 U/L 10/26/2023 9:39 AM [facility] ALT 10 10 - 54 U/L 10/26/2023 9:39 AM [facility] Glucose 89 74 - 99 mg/dL 10/26/2023 9:39 AM [facility] Comment: The [place] Diabetes Association (ADA) provides guidance for cutoff [...] Standards of Medical Care in Diabetes 2016, [place] [employer] Association. Diabetes Care. 2016.39(Suppl 1). BUN 16 9 - 24 mg/dL 10/26/2023 9:39 AM [facility] Creatinine 1.01 0.73 - 1.22 mg/dL 10/26/2023 9:39 AM [facility] Sodium 141 136 - 144 mmol/L 10/26/2023 9:39 AM [facility] Potassium 4.0 3.7 - 5.1 mmol/L 10/26/2023 9:39 AM [facility] Chloride 106(H) 97 - 105 mmol/L 10/26/2023 9:39 AM [facility] CO2 27 22 - 30 mmol/L 10/26/2023 9:39 AM [facility] Anion Gap 8(L) 9 - 18 mmol/L 10/26/2023 9:39 AM [facility] Estimated Glomerular Filtration Rate 85 >=60 mL/min/1. 73m 10/26/2023 9:39 AM EDT [facility] Comment:Estimated Glomerular Filtration Rate (eGFR) is calculated using the 2020 CKD-EPI creatinine equation. This equation utilizes serum creatinine, sex, and age as parameters. The creatinine assay has traceable calibration to isotope dilution- mass spectrometry. Refer to KDIGO guidelines for clinical interpretation. In patients with unstable renal function, e.g. those with acute kidney injury, the eGFR may not accurately reflect actual GFR. Blood BLOOD SPECIMEN / Unknown Venipuncture / Unknown 10/26/2023 9:02 AM EDT 10/26/2023 9:11 AM EDT us Memo Acevedo MD LABORATORY Final Result [facility] [address] [place] [address] from Last 3 Months or Most Recently Relevant to Health Maintenance Insurance [facility] CHOICE PLUS MEDICARE Care Teams Graphic Design Assistant Relationship Specialty Start Date End Date Jax Hastings [address] [place] [id number] PCP - General Family Medicine 11/20/18 Jax Hastings [address] [place] [address] Referring Family Medicine 11/20/18 Oziel Cadena MD [address] [facility] [address] [address] Referring Neurology 08/18/22
--- OUTSIDE RECORDS SUMMARY | 2025-01-01 14:26 | XMS_ITS | Encounter Summary ---
Author Organization [facility] Address [address] [place] [address] Phone Care Team Providers Care Ict Programmer Name Role Phone Jax Hastings DO Primary Care Provider [phone] Helder Saleem MD Unavailable [phone] René Narayanan PA-C Unavailable [phone] Encounter Details Date Type Department Care Team (Late st Contact Info) Description 01/09/2024 Scanned Document [facility] [address] [place] [address] Doretha Harris MD [address] [place], [place] [id number] Social History Tobacco Use Types Packs/Day Years [...] Description 04/06/2025 9:30 AM EDT Office Visit [facility] [address] [facility] [address] [place] [phone] Doretha Harris MD [address] [place] [address] documented as of this encounter Goals Goal [...] documented as of this encounter Care Teams Ict Programmer Relationship Specialty Start Date End Date Jax Hastings DO [address] [place] [address] PCP - General 01/03/19 [place] [address] [place] [address] Consulting Physician Hematology and Oncology 10/05/23 René Narayanan PA-C [address] [place] [address] Physician Tutoring Manager Neurosurgery 12/12/23 documented as of this encounter
--- OUTSIDE RECORDS SUMMARY | 2025-01-01 14:26 | XMS_ITS | Encounter Summary ---
Author Organization [facility] Address [address] [facility] [place] [address] Care Team Providers Care Owner Operator Tanker Truck Driver Name Role Phone AndreaJax meneses Neisha JOSÉ Primary Care Provider [phone] Encounter Details Date Type Department Care Team (Late Contact Info) Description 03/13/2023 Abstract [facility] [address], [place] [phone] Oziel Cadena MD [address] [place] [phone] Social History Tobacco Use Types Packs/Day Years Used Date Smoking Tobacco: Every Day Cigarettes Smokeless Tobacco: Never Tobacco Cessation:Ready to Q uit: Not Asked; Counseling Given: Not Answered Comments:6-10 cigarettes/day Alcohol Use Standard Drinks/Week Comments Never 0 [...] suspected to have Coronavirus/COVID-19? No / Unsure 02/28/2023 11:30 AM EDT documented as of this encounter Plan of Treatment Upcoming Encounters Date Type Department Care Team (Late Contact Info) Description 01/08/2025 10:20 AM EDT Office Visit [facility] [address] [place] [address] Anahi Franco PA [address] [place] [address] 02/04/2025 2:30 PM EDT Clinical Support [facility] [address] [place] [address] Oziel Cadena MD [address] [facility] [address] [phone] documented as of this encounter Visit Diagnoses Not on filedocumented in this encounter Care Teams Owner Operator Tanker Truck Driver Relationship Specialty Start Date End Date Jax Hastings DO PCP - General Family Medicine 02/13/23 documented as of this encounter
--- OUTSIDE RECORDS SUMMARY | 2025-01-01 14:26 | XMS_ITS | Encounter Summary ---
Author Organization [facility] Address [address] [place] [address] Phone Care Team Providers Care Bulk Mail Clerk Name Role Phone Jax Hastings DO Primary Care Provider [phone] Helder Saleem MD Unavailable [phone] René Narayanan PA-C Unavailable [phone] Encounter Details Date Type Department Care Team (Late st Contact Info) Description 12/12/2023 Scanned Document [facility] [address] [place] [address] René Narayanan PA-C [address] [facility] [address], [facility] [address] [place], [place] [phone] Social History Tobacco Use Types Packs/Day Years Used Date Smoking Tobacco: Every Day Cigarettes Passive Smoke Exposure: Never Smokeless Tobacco: Never Alcohol Use Standard Drinks/Week Comments Never 0 (1 standard drink = 0.6 oz pur e alcohol) PHQ-2 Answer Date Recorded Patient Health Questionnaire-2 Score 2 12/12/2023 Sex and Gender Information Value Date Recorded [...] suspected to have Coronavirus/COVID-19? No / Unsure 12/13/2023 7:07 AM EDT documented as of this encounter Functional Status * Over the past 2 weeks, how often have you been bothered by any of the following problems? Question Answer Date of Assessment Author Little interest or pleasure in doing things Several days 12/12/2023 1:10 PM EDT Asya Unger MA Feeling down, depressed, or hopeless Several days 12/12/2023 1:10 PM EDT Asya Ashley MA Patient Health Questionnaire-2 Score 2 12/12/2023 1:10 PM EDT Asya Ashley MA * How difficult have these problems made it for you to do your work, take care of things at home, or get along with other people? Answer Date of Assessment Author Somewhat difficult 12/12/2023 1:10 PM EDT Asya Grewal MA documented as of this encounter Plan of Treatment Upcoming Encounters Date Type Department Care Team (Late st Contact Info) Description 04/06/2025 9:30 AM EDT Office Visit [facility] [address] [facility] [address] [place] [phone] Doretha Harris MD [address] [place] [address] documented as of this encounter Visit Diagnoses Not on filedocumented in this encounter Additional Health Concerns Assessment Noted Time A fall risk assessment has been complete d for the patient 12/12/2023 1:10 PM EDT documented as of this encounter Care Teams Bulk Mail Clerk Relationship Specialty Start Date End Date Jax Hastings DO [address] [place] [address] PCP - General 01/03/19 [place] [address] [place] [address] Consulting Physician Hematology and Oncology 10/05/23 MilkRené meneses PA-C [address] [phone] Physician Power Press Tender Neurosurgery 12/12/23 documented as of this encounter
--- OUTSIDE RECORDS SUMMARY | 2025-01-01 14:26 | XMS_ITS | Encounter Summary ---
Author Organization [facility] Address [address] [facility] [address] Care Team Providers Care Placer Miner Name Role Phone Jax Hastings Primary Care Provider [phone] Encounter Details Date Type Department Care Team (Late st Contact Info) Description 05/04/2023 External Result Encounter [facility] External Department Unsolicited Nikole Mota, CRANBERRY GROWER [address] [facility] [address] [phone] Social History Tobacco Use Types Packs/Day Years [...] DERM [address] [place] [address] Anahi Franco PA [address] [place] [address] 02/04/2025 2:30 PM EDT Clinical Support [facility] [address] [place] [address] Oziel Cadena MD [address] [facility] [address] [place] [address] documented as of this encounter Procedures Procedure Name Priority Date/Time Associated Diagnosis Comments CT ANGIOGRAM NECK 05/04/2023 3:4 9 PM EST documented in this encounter Results * CT angiogram neck (05/04/2023 3:49 PM EST) Anatomical Region Laterality Modality Head, Neck Computed Tomogra phy 05/04/2023 3:49 PM EST Impressions 05/07/2023 4:31 PM EST No evidence of focal stenosis, aneurysmal dilatation, dissection or occlusion. Impression dictated by: Alber Goodson M.D.05/04/2023 4:34 PM Dictation Location: [place] [address] Transcribed By: [facility] 05/04/23 1634 Dictated By: Alber Goodson II, MD 05/04/23 1549 Signed By: <Electronically signed by Alber Goodson II, MD in OV> 05/04/23 1634 Narrative 05/07/2023 4:31 PM EST [facility] Main [address] [address] [address] Scan Report Signed Patient: Jovani Kong MR#: [id number] : 1960 Acct:[id number] Age/Sex: 62 / M ADM Date: 05/04/23 Loc: CT Room: Type: [facility] Attending Dr: Nikole Mota APRN, CRANBERRY GROWER-C Copies to: Nikole Mota APRN, CNP Ordering Provider: Nikole Mota APRN, CNP Date of Service: 05/04/23 CT/CT angio neck: H53.9, I65.23, I65.1, I66.09, I65.29 ([id number]) CT/CT angio head: H53.9, I65.23, I65.1, I66.09, [...] are within normal limits. CT/CT angio head Procedure Note Radiology, Radiologist, - 05/07/2023 [facility] Main [place] [address] [place] [address] CT Scan Report Signed Patient: Jovani Kong CMR#: [id number] : 1960Acct:[id number] Age/Sex: 62 / MADM Date: 05/04/23 Loc: CT Room:Type: [facility] Attending Dr: Nikole Mota APRN, CRANBERRY GROWER-C Copies to: Nikole Mota APRN,BONUS CLERK Ordering Provider: Nikole Mota APRN,BONUS CLERK Date of Service: 05/04/23 CT/CT angio neck: H53.9, I65.23, I65.1, I66.09,I65.29 ([id number]) CT/CT angio head: H53.9, I65.23, I65.1, I66.09, I65.29 CT angio head, CT angio neck 05/04/2023 2:33 PM SIGNS AND SYMPTOMS: Dizziness, blurred vision, history of tongue cancer CONTRAST: 90 mL of intravenous Isovue-370 TECHNIQUE: Multi-detector CT angiography axial slices of the head wereobtained before and during intravenous administration of IV contrast material. Sagittal, coronal, and3-D reconstructions were performed and viewed on a separate workstation. CT was performed with oneor more of the following dose reduction techniques: Automated exposure control, adjustment of themA and/or kV according to patient size, or use of iterative reconstruction technique. Stenoses weremeasured using the NASCET criteria. COMPARISON: None. FINDINGS: CTA HEAD: The superior cerebellar arteries, posterior inferior cerebellar arteries,and the basilar artery are within normal limits. The posterior cerebral arteries are unremarkable. The intracranial segments of the internal carotid arteries are withinnormal limits. There are normal anterior and middle cerebral arteries. Anterior communicatingartery is patent. Posterior communicating arteries are present. The deep venous system and duralvenous systems appear to be patent. No bony abnormalities are appreciated. CTA NECK: There is a normal three-vessel arch. The subclavian arteries are withinnormal limits. The vertebral arteries arise from the subclavian arteries and are normal incourse and caliber up to the skull base. Calcified plaque is noted in the carotid bifurcations withoutsignificant stenosis. Visualized lung parenchyma is clear. Degenerative changes are noted in thecervical spine. No acute bony abnormalities are identified. The paraspinous soft tissues arewithin normal limits. CT/CT angio head IMPRESSION: No evidence of focal stenosis, aneurysmal dilatation, dissection orocclusion. Impression dictated by: Alber Goodson M.D.05/04/2023 4:34 PM Dictation Location: [place] [address] Transcribed By: [facility] 05/04/23 1746 Dictated By: Alber Goodson II, MD 05/04/23 1549 Signed By: <Electronically signed by Alber oGodson II, MD inOV> 05/04/23 1634 us Nikole Mota CRANBERRY GROWER IMG CT PROCEDURES Final Result documented in this encounter Visit Diagnoses Not on filedocumented in this encounter Care Teams Placer Miner Relationship Specialty Start Date End Date Jax Hastings DO PCP - General Family Medicine 02/13/23 documented as of this encounter
--- NOTE | 2025-01-01 14:50 | PM.CN ---
Consult Note: HPI Data of Consult Patient: known to practice within the last 3 years Requesting Physician: Delia Bowser NP Primary Care Provider: GRISELDA KRAUSE Consult Narrative Reason for consult: f/u Narrative: Jovani Kong a pleasant 63 year old male presents for evaluation of cervical pain/radiculopathy. Pt underwent C5-7 fusion fall but continued to have cervical radiculopathy. Recently underwent cervical MRI which shows moderate crowding of the spinal cord at C6-7 with mild bilateral foraminal narrowing. pt has been cleared by NS. prior left C5-6 C6-7 TFESI provided >50% improvement greater than 3 months and pt would like to repeat at this time. pain 6/10 in left neck and shoulder radiating intermittently to LUE. cc:: CC: Delia Bowser NP Review of Systems ROS Musculoskeletal Reports: neck pain, extremity pain and muscle weakness PFSH PFSH Medical History Neck pain �M54.2 - Cervicalgia (ICD-10) Low back pain �M54.50 - Low back pain, unspecified (ICD-10) Smoker �F17.200 - Nicotine dependence, unspecified, uncomplicated (ICD-10) Irregular heart beat �I49.9 - Cardiac arrhythmia, unspecified (ICD-10) Hypertension �I10 - Essential (primary) hypertension (ICD-10) Surgical History H/O cervical spine surgery �Z98.890 - Other specified postprocedural states (ICD-10) H/O neck dissection �Z98.890 - Other specified postprocedural states (ICD-10) Social History Little interest or pleasure in doing things: not at all Feeling down, depressed, or hopeless: not at all Meds Home Medications and Allergies Home Medications �Medication �Instructions �Recorded �Confirmed �Type amlodipine 5 mg tablet (Norvasc) 5 mg PO DAILY 04/16/23 09/22/24 History aspirin 81 mg tablet,delayed 81 mg PO DAILY 04/16/23 09/22/24 History release (Adult Low Dose Aspirin) hydroxyzine HCl 25 mg tablet 25 mg PO BID PRN sleep 04/16/23 09/22/24 History mirtazapine 15 mg tablet 15 mg PO DAILY 04/16/23 09/22/24 History ibuprofen 600 mg tablet (IBU) 600 mg PO BID 11/28/23 09/22/24 History clopidogrel 75 mg tablet 75 mg PO DAILY 03/11/24 09/22/24 History methocarbamol 500 mg tablet 500 mg PO 07/07/24 History pregabalin 50 mg capsule 50 mg PO Q12H 07/07/24 09/22/24 History hydrocodone 7.5 mg-acetaminophen 1 tab PO BID PRN pain #60 tabs 09/11/24 09/22/24 Rx 325 mg tablet naloxone 4 mg/actuation nasal 4 mg intranasal Q2M PRN opioid 09/11/24 09/22/24 Rx spray (Narcan) overdose #2 ea hydrocodone 7.5 mg-acetaminophen 1 tab PO BID PRN pain #60 tabs 11/12/24 Rx 325 mg tablet Allergies Allergy/AdvReac Type Severity Reaction Status Date / Time cephalexin (From Keflex) Allergy Unknown hives Verified 09/22/24 09:24 Exam Constitutional Documenting provider has reviewed patient's vital signs: yes Common normals: no apparent distress, oriented x3, healthy appearing, alert and well nourished General appearance: cooperative HENMS Common normals: normocephalic, hearing grossly normal bilaterally and moist oral mucous membranes Head and scalp: normocephalic Eye Common normals: PERRL Pupil: PERRL Neck & C-Spine Common normals: full ROM General: normal visual inspection Cervical spine: pain with cervical ROM and paracervical muscle tenderness; no cervical spine tenderness Other: positive spurlings decreased sensation to LUE following C5,6,7 oddly strength 4/5 in RUE and 5/5 in LUE although pt reports heaviness and weakness of LUE Chest Common normals: inspection of chest normal Respiratory Common normals: normal respiratory effort, no retractions and no use of accessory muscles Neuro Common normals: oriented x3 Sensorium/orientation: alert Psych Common normals: mental status grossly normal, thought process normal, cooperative, affect normal, speech normal and activity/motor behavior normal Speech: normal speech Thought process: normal thought process Results Additional Findings Additional findings: If on a controlled substance or opioids, I have checked an [place]AR[place] report on this patient and there are no aberrancies noted in the prescribing history.��If on a controlled substance or opioid a drug screen was completed and reviewed within the last year, and if there has not been a drug screen completed we ordered one today to monitor higher risk, state monitored pain medication use. As part of providing excellent, safe, comprehensive care, the following was completed at our patient's visit: 1. A medication reconciliation and review to ensure accurate knowledge of current/active medications, including asking our patients to inform us about any hbyh-srr-ynwfyfs medications or herbal remedies/nutritional supplements/alternative remedies. 2. A review to specifically ensure our patients have had annual screening for screening for depression, screening for tobacco use, and screening for unhealthy alcohol use. For concerning screenings had a discussion with the patient, provided patient education, and recommended follow-up with primary care provider when appropriate. If patient noted with a risk of falling, they received education on strength, gait, and balance training to prevent future risk of falling. Portions of this note may have been carried over from the previous visit and updated as appropriate. Please note this office utilizes paper charting in addition to the electronic medical record. A list of current medications, vitals, and PMH is available there as the clinical staff outside of myself do not have access to [facility] charting during the clinic day operations. As part of providing quality comprehensive care the current medications, vitals, and PMH were reviewed in the paper chart. Assessment and Plan Assessment and Plan (1) Status post cervical spinal fusion: (2) Cervical stenosis of spinal canal: (3) Cervical radiculopathy: (4) Chronic prescription opiate use: Assessment and Plan: I feel these medications are improving the patient's quality of life and allow them to tolerate activities of daily living as well as participate in recreational activity.� The patient does not report intolerable side effects. The patient is NOT opioid naive and non-pharmacologic and non-opioid treatment has failed to significantly relieve the patient's pain and improve functionality. The patient has a diagnosis that is related to a somatic or visceral pain etiology. � �� I reviewed with the patient the potential risks and side effects with the use of� opioid medications including but not limited to respiratory depression,� sedation, and even . Within the last 12 months I have verified the patient has access to naloxone should� these effects occur. The patient was advised to let� their family know they had Naloxone in case they would need to administer� the medication. I advised the patient to avoid the use of any other� sedation substances including alcohol, THC, and benzodiazepines while� taking opioid medications due to the risk of compounding side effects and� detrimental outcomes. within the last 12 months I have reviewed the DOUBLING MACHINE OPERATOR, pain treatment agreement and urine drug screen.� �� A drug screen was completed within the last year, and no aberrancies were noted regarding their use of controlled substances. The patient understands they are subject to the terms and conditions of the pain contract that they have signed. � �� I have checked an OARRS report on this patient today and there are no aberrancies noted in the prescribing history.� (5) Myalgia, other site: (6) Failed neck syndrome: Plan 64 year old male with longstanding hx of neck and UE pain. since last visit neurology dc'd robaxin and restarted tizanidine 4mg BID with benefit. cannot tolerate pregabalin 50mg, makes him feel drunk the next AM. currently utilizing hydrocodone-acetaminophen 5-325 mg hs prn with benefit without side effects. on plavix, does utilize ASA prn. update UDS for medication monitoring. will proceed with repeat left C5-6 C6-7 TFESI under fluoroscopy at this time. pt given handout to arrange psychiatric evaluation prior to scs trial for failed neck syndrome and cervical radiculopathy. risks vs benefits reviewed. f/u 2 weeks after TFESI
== END 2025-01-01 14:23 | disposition home or self-care (01) ==
PROVIDERS: PCP Family Medicine; Visit Provider Nurse Practitioner
DX: M48.02 Spinal stenosis, cervical region (principal); Z98.1 Arthrodesis status; M54.12 Radiculopathy, cervical region; Z79.891 Long term (current) use of opiate analgesic; M79.18 Myalgia, other site; M96.1 Postlaminectomy syndrome, not elsewhere classified
CPT/HCPCS: G0463

== ENCOUNTER 2025-01-26 09:36 | Day surgery (SDC) | payer MEDICARE, OTHER, SELFPAY ==
--- OUTSIDE RECORDS SUMMARY | 2025-01-12 11:40 | XMS_ITS | Continuity of Care Document ---
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 Programming Professor Active Jax Hastings DO Primary Care Provider Active Visit Care Team Team Status: Inactive Member Role Status Poornima Hastings DO Primary Care Provider Active Sta rt: October 27, 2024 End: October 27, 2024 Lilliam Cason MD Attending Provider Active Sta rt: October 27, 2024 End: October 27, 2024 Visit Care Team Team Status: Active Member Role Status Poornima Hastings DO Primary Care Provider Active Sta rt: November 03, 2024 Elizabeth Hagan PA-C Attending Provider Active Start: November 03, 2024 Visit Care Team Team Status: Inactive Member Role Status Poornmia Hastings DO Primary Care Provider Active Sta rt: November 05, 2024 End: November 05, 2024 Nathanael Arango MD Attending Provider Active Start: November 05, 2024 End: November 05, 2024 Visit Care Team Team Status: Active Member Role Status Dates Jax Hastings DO Primary Care Provider Active Sta rt: November 05, 2024 Nathanael Arango MD Attending Provider Active Start: November 05, 2024 Nathanael Arango MD Other Provider Active Start: November 05, 2024 Visit Care Team Team Status: Inactive Member Role Status Dates Jax Hastings DO Primary Care Provider Active Sta rt: November 17, 2024 End: November 17, 2024 René Montez APRN Attending Provider Active Start: November 17, 2024 End: November 17, 2024 Visit Care Team Team Status: Inactive Member Role Status Dates Jax Hastings DO Primary Care Provider Active Sta rt: November 19, 2024 End: November 19, 2024 Jax Hastings DO Attending Provider Active Start: November 19, 2024 End: November 19, 2024 Visit Care Team Team Status: Inactive Member Role Status Dates Jax Hastings DO Primary Care Provider Active Sta rt: 2024 End: 2024 Jax Hastings DO Attending Provider Active Start: 2024 End: 2024 Patient Care Team Team Status: Inactive Member Role Status Dates Jax Hastings DO Primary Care Provider Active Sta rt: January 12, 2025 End: January 12, 2025 René Montez APRN Attending Provider Active Start: January 12, 2025 End: January 12, 2025 Chief Complaint and Reason for Visit Chief Complaint Admit Date 6 months October 27, 2024 9:37a m abdominal pain/early satiety/weight loss / diarrhea November 05, 2024 6:59am abdominal pain/early satiety/weight loss / diarrhea November 05, 2024 8:55am follow up EGD November 17, 2024 1:57p m congestion November 19, 2024 2:26p m B33.8 2024 2:12p m follow up Dyspepsia/GERD January 12, 2025 3:14pm Reason for Visit Admit Date Cardiac arrhythmia October 27, 2024 9:37a m Essential hypertension October 27, 2024 9: 37am Hyperlipidemia October 27, 2024 9:37a m Glioma of brain October 27, 2024 9:37a m PAD (peripheral artery disease) October 9:37am Abdominal pain November 17, 2024 1:57p m Change in bowel habits November 17, 2024 1: 57pm Diarrhea November 17, 2024 1:57p m Dysphagia November 17, 2024 1:57p m RSV (respiratory syncytial virus infecti on) November 19, 2024 2:26pm Dyspepsia January 12, 2025 3:14 pm GERD (gastroesophageal reflux disease) J kurtis 2024 3:14pm Allergies, Adverse Reactions, Alerts Allergen Type Severity Reaction Last Updated Verified Status cephalexin Allergy Unknown Hives, rash January 12, 2025 3:22pm Ye s Active Social History Smoking Status Status Start Date End Date Date of Observa tion Smokes tobacco daily (finding) November 05, 2024 7:06am Observation Status Observation Response Date of Response Legal Sex Male (finding) Sex Assigned At Male 1960 Family History Relationship Condition Age at Onset Recorded Date/T yolie brother Hypertension Unknown sister Heart disease Unknown father Malignant neoplasm Unknown Cerebrovascular accident (CVA) Unknown mother Heart disease Unknown Unknown Problems Active Problems Medical Problem Onset Date Status Comments Change in bowel habits Unknown Active Arthralgia of cervical spine Unknown Active Nicotine dependence with current use Unknown Acti ve History of COVID-19 Unknown Active Insomnia Unknown Active Screening for prostate cancer Unknown Active Spinal cord stimulator status Unknown Active Current every day smoker Unknown Active Burning sensation Unknown Active Dizziness Unknown Active Osteoarthritis cervical spine Unknown Active Cardiac arrhythmia Unknown Active Arthritis Unknown Active AV bloc first degree Unknown Active Dysphagia Unknown Active Diarrhea Unknown Active Dyspepsia Unknown Active Migraine Unknown Active Hyperlipidemia Unknown Active Early satiety Unknown Active Cervical spondylosis Unknown Active Dyshidrotic eczema Unknown Active Claudication of both lower extremities Unknown Ac tive Paresthesia of left lower extremity Unknown Activ e Right leg claudication Unknown Active Essential hypertension Unknown Active RSV (respiratory syncytial virus infection) Unknown Active Brain mass Unknown Active Osteoarthritis of hand Unknown Active Anxiety and depression Unknown Active S/P cervical discectomy Unknown Active PAD (peripheral artery disease) Unknown Active SCC (squamous cell carcinoma) Unknown Active head/neck Balance disorder Unknown Active GERD (gastroesophageal reflux disease) Unknown Ac tive Unexplained weight loss Unknown Active Abdominal pain Unknown Active Cancer 2008 Active Hypertension March 02, 2023 Active Inactive/Resolved Problems Medical Problem Onset Date Status Comments History of oral cancer Unknown Resolved Acute sinusitis Unknown Resolved Cervical radiculopathy Unknown Resolved Acute effusion of left ear Unknown Resolved Productive cough Unknown Resolved Acute left-sided thoracic back pain Unknown Resol elif Abdominal pain Unknown Resolved Pneumonia Unknown Resolved Dehydration Unknown Resolved Medications Medication Status Dose Units Route Directions Qty Days St art Date Stop Date End Date Instructions Adherence Pravastatin 40 mg tablet Discont inued 0 .ROUTE .COMPLEX November 05, 2023 10:42a m August 27, 2024 4:02p m take 1 tablet by mouth once daily Ezetimibe 10 mg tablet Discont inued 0 .ROUTE .COMPLEX November 05, 2023 10:42a m Novem unique 2023 10:44 am take 1 tablet by mouth once daily Amlodipine 10 mg tablet Discont inued 0 .ROUTE .COMPLEX November 29, 2023 12:15p m Augus t 2023 11:05 am take 1 tablet orally daily Lisinopril 10 mg tablet Discont inued 10 MG PO Daily November 29, 2023 1:20pm Octob er 2023 11:02 am Clopidogrel (Plavix) 75 mg tablet Discont inued 75 MG PO Daily January 23, 2024 2:32pm January 12, 2025 3:23p m Amlodipine 10 mg tablet Discont inued 10 MG PO Daily February 01, 2024 11:05a m Octob er 2023 11:02 am Ezetimibe (Zetia) 10 mg tablet Discont inued 10 MG PO Daily August 27, 2024 4:02pm October 06, 2024 2:06p m Pravastatin 40 mg tablet Discont inued 0 .ROUTE .COMPLEX August 27, 2024 4:02pm October 06, 2024 2:06p m take 1 tablet by mouth once daily Citalopram (Celexa) 10 mg tablet Active 10 MG PO Daily September 29, 2024 3:10pm Complies with drug therapy Amlodipine 10 mg tablet Active 10 MG PO Daily September 29, 2024 3:11pm Complies with drug therapy Lisinopril 10 mg tablet Active 10 MG PO Daily September 29, 2024 3:11pm Complies with drug therapy Alirocumab (Praluent Pen) 75 mg/mL pen injector Active 75 MG SUBCUT Q14D 7 90 November 03, 2024 12:00a m Complies with drug therapy Meclizine 25 mg tablet Discont inued 25 MG PO Three times daily as needed for dizziness 30 Novemb er 2017 1:00am Octob er 2021 4:26p m Promethazin e 25 mg tablet Discont inued 25 MG PO Q6H as needed for motion sickness 14 Novemb er 2017 1:00am Octob er 2021 4:26p m Amoxicillin -Pot Clavulanate 875-125 mg tablet Discont inued 1 TAB PO Twice daily 20 unique 2022 12:00a m Novem unique 2022 9:23a m Cyclobenzap rine 10 mg tablet Discont inued 10 MG PO Three times daily as needed for Muscle Spasm 10 Octobe r 2022 12:00a m Novem unique 2022 9:22a m Prednisone 10 mg tablet Discont inued 60 MG PO Daily 30 Marobe r 2022 12:00a m Novem unique 2022 9:24a m administer with food or milk Acetaminoph en-Codeine 300-30 mg tablet Discont inued 1 TAB PO Twice daily as needed for Pain Novemb er 2022 1:00am Febru [email or web address] 1:44p m Amlodipine (Norvasc) 5 mg Tablet Discont inued 5 MG PO Daily Novemb er 2022 1:00am Febru [email or web address] 1:45p m Clotrimazol e-Betametha sone 1-0.05 % cream Discont inued 1 APPLIC TOPICA L Twice daily Novemb er 2022 1:00am Febru [email or web address] 1:47p m Gabapentin 300 mg capsule Discont inued 300 MG PO Three times daily Novemb er 2022 1:00am Febru [email or web address] 1:47p m Olmesartan 20 mg tablet Discont inued MG Novemb er 2022 1:00am Febru eloise 2023 1:50p m Clopidogrel 75 mg Tablet Discont inued 75 MG PO Daily 90 180 Novemb er 2022 1:00am Febru eloise 15th, 2024 1:46p m Albuterol Sulfate 90 mcg/actuati on HFA aerosol inhaler Discont inued 1 INH INHALA TION Every 4 hours as needed for shortness of breath September 20, 2024 12:00a m October 06, 2024 2:05p m Amoxicillin -Pot Clavulanate 875-125 mg tablet Discont inued 1 TAB PO Twice daily September 20, 2024 12:00a m October 06, 2024 2:05p m Azithromyci n 250 mg tablet Discont inued 250 MG PO Daily 4 September 20, 2024 12:00a m October 06, 2024 2:06p m start on day 2 of therapy Citalopram 40 mg tablet Discont inued 20 MG PO Daily December 10, 2017 12:00a m Novem unique 2017 3:12p m Naproxen 500 mg tablet Discont inued 500 MG PO Twice daily December 10, 2017 12:00a m Novem unique 2017 3:12p m administer with food or milk Hydrocodone -Acetaminop hen ([place]) 5-325 mg tablet Discont inued 1 TAB PO Q4H December 10, 2017 unique 2017 3:12p m Promethazin e 25 mg Tablet Discont inued 25 MG PO Q6H as needed for Nausea September 08, 2021 12:00a m Octob er 2021 4:26p m Citalopram 20 mg tablet Discont inued 20 MG PO Daily Octobe r 2021 12:00a m Febru 2023 1:46p m Rimegepant (Nurtec Odt) 75 mg tablet,disi ntegrating Discont inued 75 MG PO Q48H Octobe r 2021 12:00a m Janua ry 2022 9:02a m Tizanidine 4 mg tablet Discont inued 8 MG PO Bedtime Octobe r 2021 12:00a m Febru 2023 1:50p m Prednisone 20 mg tablet Discont inued 40 MG PO Daily Marobe r 2021 12:00a m Janua ry 2022 9:01a m administer with food or milk Oxycodone-A cetaminophe n (Percocet) 5-325 mg tablet Discont inued 1 - 2 TAB PO Every 6 hours as needed for pain 20 4 Marobe r 2021 9:01a m Ibuprofen 600 mg tablet Discont inued 600 MG PO Q8H as needed for pain 20 Marobe r 2021 12:00a m 2022 9:01a m Tizanidine 4 mg capsule Discont inued 4 MG PO Twice daily as needed for muscle spasticity 14 Marobe r 2021 12:00a m 2022 9:02a m Indomethaci n 25 mg Capsule Discont inued 25 MG PO Daily 2022 1:00am Febru 2023 1:48p m Montelukast (Singulair) 10 mg Tablet Discont inued 10 MG PO Daily 2022 1:00am Febru 2023 1:49p m Hydroxyzine Hcl 25 mg Tablet Discont inued 25 MG PO Bedtime as needed for Insomnia 2022 1:00am Febru 2023 1:48p m Mirtazapine 7.5 mg Tablet Discont inued 7.5 MG PO Bedtime as needed for Insomnia 2022 1:00am Febru 2023 1:49p m Aspirin 81 mg Capsule Discont inued 81 MG PO Daily 2022 1:00am Febru [email or web address] 1:45p m Hydrocodone -Acetaminop hen 7.5-325 mg tablet Active 1 TAB PO Twice daily as needed for pain October 06, 2024 12:00a m Complies with drug therapy Ondansetron 4 mg tablet,disi ntegrating Discont inued 4 MG PO Every 8 hours as needed for nausea and vomiting 9 3 October 06, 2024 12:00a m October 24, 2024 11:48 am Pantoprazol e 40 mg tablet,natalio yed release (DR/EC) Discont inued 40 MG PO Daily at bedtime 56 56 November 05, 2024 12:00a m November 17, 2024 2:16p m Indomethaci n 75 mg capsule, extended release Discont inued 75 MG PO Daily 2023 1:00am 2023 1:48p m FreeTextSi capsule with food Orally Once a day; Note: Source Status: Not-Takingund efinedPRNprn; Provider: Darling Camara ( ) Albuterol Sulfate 90 mcg/actuati on HFA aerosol inhaler Discont inued 1 PUFF INHALA TION Every 4 hours 2023 1:00am 2023 1:45p m FreeTextSi puff as needed Inhalation every 4 hrs; Note: Source Status: Start; Refills: 1; Provider: Darling Driver Methylpredn isolone 4 mg tablets,dos e pack Discont inued MG PO As Directed 2023 1:00am 2023 1:48p m FreeTextSig: as directed Orally as directed; Note: Source Status: Start1 pack; Refills: 0; Provider: Darling Driver Gabapentin 100 mg capsule Discont inued 100 MG PO Daily 2023 1:00am 2023 1:47p m FreeTextSi capsule Orally Once a day; Note: Source Status: Not-Takingund efinedPRN; Provider: Darling Camara ( ) Mirtazapine 15 mg tablet Discont inued MG PO 2023 1:00am September 05, 2023 1:37p m FreeTextSi/2 tablet at bedtime Orally Once a day; Note: Source Status: Taking; Provider: Darling Camara ( ) Montelukast (Singulair) 10 mg tablet Discont inued 10 MG PO Daily 2023 1:00am 2023 2:10p m FreeTextSi tablet Orally Once a day; Note: Source Status: Taking; Provider: Darling Camara ( ) Clopidogrel (Plavix) 75 mg tablet Discont inued 75 MG PO Daily 2023 1:00am 2023 2:33p m FreeTextSi tablet Orally Once a day; Note: Source Status: Taking; Provider: Darling Camara ( ) Tizanidine (Zanaflex) 4 mg tablet Discont inued 4 MG PO Daily at bedtime 2023 1:00am December 03, 2023 10:58 am FreeTextSi tablet as needed Orally at bedtime; Note: Source Status: Taking; Provider: Satish Rogers Ibuprofen 800 mg tablet Discont inued 800 MG PO Three times daily 2023 1:00am September 05, 2023 1:37p m FreeTextSi tablet with food or milk as needed Orally Three times a day; Note: Source Status: TakingPRN; Provider: Darling Camara ( ) Aspirin 81 mg tablet,natalio yed release (DR/EC) Active 81 MG PO Daily 2023 1:00am Complies with drug therapy Multivitami n (Multiple Vitamins) tablet Active 1 TAB PO Daily 2023 1:00am Complies with drug therapy Brexpiprazo le 1 mg tablet Discont inued 1 MG PO Daily 2023 1:00am 2023 2:10p m FreeTextSi tablet Orally Once a day; Note: Source Status: Continuesampl es provided; Provider: Darling Driver Rosuvastati n 5 mg tablet Discont inued 5 MG PO 2023 1:00am 2023 2:10p m FreeTextSi tablet Orally 2 days per week; Note: Source Status: Not-Takingund efinedPRN; Refills: 1; Provider: Darling Driver Ezetimibe 10 mg tablet Discont inued MG PO 2023 1:00am 2023 1:47p m FreeTextSi tablet Orally 2 days per week; Note: Source Status: Not-Takingund efinedPRN; Provider: Kamla Ruiz Amlodipine 5 mg tablet Discont inued 5 MG PO Daily 2023 1:00am September 05, 2023 2:21p m FreeTextSi tablet Orally Once a day; Note: Source Status: Continue; Provider: Darling Driver Clotrimazol e-Betametha sone 1-0.05 % cream Discont inued 1 APPLIC TOPICA L Twice daily 2023 1:00am Febru eloise 2023 1:47p m FreeTextSi application Externally Twice a day; Note: Source Status: Not-Takingund efinedPRN; Refills: 1; Qty: 45 grams; Provider: Darling Driver Hydroxyzine Hcl 25 mg tablet Discont inued MG PO 2023 1:00am September 05, 2023 1:37p m FreeTextSi-2 tablets Orally HS as needed; Note: Source Status: Taking; Provider: Darling Driver Citalopram 20 mg tablet Discont inued 20 MG PO Daily 2023 1:00am December 03, 2023 10:48 am FreeTextSi tablet Orally Once a day; Note: Source Status: Continue; Provider: Darling Driver Brexpiprazo le 1 mg tablet Discont inued 0.5 MG PO Daily 2023 2:09pm October 18, 2023 8:55a m Hydroxyzine Hcl 25 mg tablet Active 25 MG PO Daily at bedtime as needed for insomnia September 05, 2023 1:34pm FreeTextSi-2 tablets Orally HS as needed; Note: Source Status: Taking; Provider: Darling Driver Complies with drug therapy Ibuprofen 800 mg tablet Discont inued 800 MG PO Three times daily as needed for pain September 05, 2023 1:35pm October 06, 2024 2:06p m FreeTextSi tablet with food or milk as needed Orally Three times a day; Note: Source Status: TakingPRN; Provider: Darling Camara ( ) Mirtazapine 15 mg tablet Discont inued MG PO Daily at bedtime as needed September 05, 2023 1:35pm October 29, 2023 10:19 am FreeTextSi/2 tablet at bedtime Orally Once a day; Note: Source Status: Taking; Provider: Darling Camara ( ) Mirtazapine 15 mg tablet Discont inued 15 MG PO Daily at bedtime as needed for restless leg(s) October 29, 2023 10:18a m October 06, 2024 2:06p m Ezetimibe 10 mg tablet Discont inued MG PO September 05, 2023 12:00a m September 05, 2023 1:34p m Methocarbam ol 500 mg tablet Discont inued MG PO December 03, 2023 12:00a m December 03, 2023 10:59 am Dexamethaso ne 2 mg tablet Discont inued MG PO December 03, 2023 12:00a m Novem unique 2023 10:43 am Terbinafine Hcl 1 % cream Discont inued APPLIC TOPICA L December 03, 2023 12:00a m September 20, 2024 11:05 am Methocarbam ol 500 mg tablet Discont inued 500 MG PO December 03, 2023 10:58a m Novem unique 2023 10:45 am Citalopram (Celexa) 10 mg tablet Discont inued 10 MG PO Daily 90 December 03, 2023 12:00a m Octob er 2023 11:02 am Buspirone 5 mg tablet Discont inued 5 MG PO January 31, 2024 12:00a m Janua ry 2024 10:50 am Alprazolam (Xanax) 0.25 mg tablet Discont inued 0.25 MG PO Daily 30 January 31, 2024 12:00a m Octob er 2023 11:01 am Hydrocodone -Acetaminop hen 7.5-300 mg tablet Discont inued 1 TAB PO Twice daily Octobe r 2023 12:00a m Novem unique 2023 10:44 am Amlodipine 10 mg tablet Discont inued 10 MG PO Daily Octobe r 2023 11:02a m September 29, 2024 3:11p m Lisinopril 10 mg tablet Discont inued 10 MG PO Daily Marobe r 2023 11:02a m September 29, 2024 3:11p m Citalopram (Celexa) 10 mg tablet Discont inued 10 MG PO Daily Marobe r 2023 11:02a m September 29, 2024 3:11p m Evolocumab (Repatha Sureclick) 140 mg/mL pen injector Discont inued 140 MG SUBCUT EVERY 2 WEEKS 6 October 27, 2024 12:00a m November 03, 2024 9:56a m Pantoprazol e 40 mg tablet,natalio yed release (DR/EC) Active 40 MG PO Twice daily 60 November 17, 2024 2:10pm Complies with drug therapy Azithromyci n (Zithromax Z-Slim) 250 mg tablet Active 0 PO .COMPLEX November 19, 2024 12:00a m For 250 mg dose pack: take 500 mg today (day 1), then 250 mg for 4 days (days 2-5) PO Complies with drug therapy Methylpredn isolone (Medrol (Slim)) 4 mg tablets,dos e pack Active 0 PO per package directions November 19, 2024 12:00a m PO PER PKG DIR for 6 days Complies with drug therapy Doxycycline Hyclate 100 mg capsule Active 100 MG PO Twice daily 06 04November 25, 2024 12:00a m Complies with drug therapy Methylpredn isolone 4 mg tablets,dos e pack Active 0 PO per package directions November 25, 2024 12:00a m PO PER PKG DIR Complies with drug therapy Ezetimibe 10 mg tablet Discont inued 10 MG PO Daily October 29, 2023 12:00a m November 05, 2023 10:42 am Pravastatin 40 mg tablet Discont inued 40 MG PO Daily October 29, 2023 12:00a m November 05, 2023 10:42 am Hydrocodone -Acetaminop hen 5-325 mg tablet Discont inued TAB PO Every 8 hours as needed September 05, 2023 12:00a m Octob er 2023 11:01 am Amlodipine 10 mg tablet Discont inued 10 MG PO Daily September 05, 2023 12:00a m November 29, 2023 12:15 pm Lisinopril 5 mg tablet Discont inued 5 MG PO Daily September 05, 2023 12:00a m October 18, 2023 9:30a m Lisinopril 10 mg tablet Discont inued 10 MG PO Daily 90 90 October 18, 2023 12:00a m November 29, 2023 1:20p m Oxycodone-A cetaminophe n (Percocet) 5-325 mg tablet Discont inued 1 TAB PO Every 8 hours as needed Novemb er 2023 1:00am September 20, 2024 11:05 am Pregabalin 50 mg capsule Discont inued 50 MG PO Daily 2024 1:00am September 20, 2024 11:05 am Methocarbam ol 750 mg tablet Discont inued 750 MG PO Daily at bedtime 2024 1:00am September 20, 2024 11:05 am Ezetimibe (Zetia) 10 mg tablet Discont inued 10 MG PO Daily August 27, 2024 12:00a m August 27, 2024 4:02p m [id number] [place] l-Asb-C (Plenvu) 140-9-5.2 gram powder in packet, sequential Discont inued 0 PO .COMPLEX 3 1 October 10, 2024 12:00a m October 24, 2024 11:48 am PO Immunizations Immunization Event Date Not Given Reason Dose Number Field Project Manager Lot Number Vaccine Information Statement (VIS) Detail Administration Location COVID-19 mRNA, Comirnaty (Pfizer) December 30, 2020 COVID-19 mRNA, Comirnaty (Pfizer) January 21, 2021 Tetanus, Diphtheria, Pertussis (Tdap) March 15, 2014 Medical Equipment Device Date Implanted Device Details Multiple peripheral artery stent, bare-metal May 07, 2023 BERNARD: [id number] Issuing Agency: [facility] Device Id: [id number] Expiration Date: 2024-03-20 Serial Number: [id number] Procedures Procedure Date Performed Status DH EGD/Colonoscopy (Not Applicable) November 05 9:00am completed XR chest 2V* 2024 2:15pm completed RSV (POC) November 19, 2024 completed Quick Strep (POC) November 19, 2024 completed Relevant Diagnostic Tests and/or Laboratory Data Laboratory Results Test Collection Date/Time Result Date/Time Result Interpretation Reference Range Result Comment Performing Site Basophils # (Auto) November 03, 2024 8:22am November 03, 2024 8:22am 0.06 k/uL <0.11 POC SARS CoV-2 Antigen November 19, 2024 2:04pm November 19, 2024 2:31pm Negative Basophils (%) (Auto) November 03, 2024 8:22am November 03, 2024 8:22am 1.0 % Influenza Type A (Rapid) November 19, 2024 2:04pm November 19, 2024 2:31pm Negative Eosinophi ls # (Auto) November 03, 2024 8:22am November 03, 2024 8:22am 0.16 k/uL <0.46 Influenza Type B (Rapid) November 19, 2024 2:04pm November 19, 2024 2:31pm Negative Eosinophi ls (%) (Auto) November 03, 2024 8:22am November 03, 2024 8:22am 2.7 % Hemoglobi n November 03, 2024 8:22am November 03, 2024 8:22am 13.6 g/dL 13.0-17.0 Lymphocyt es # (Auto) November 03, 2024 8:22am November 03, 2024 8:22am 2.73 k/uL 1.00-4.00 Lymphocyt es (%) (Auto) November 03, 2024 8:22am November 03, 2024 8:22am 45.3 % Monocytes # (Auto) November 03, 2024 8:22am November 03, 2024 8:22am 0.40 k/uL <0.87 Neutrophi ls # (Auto) November 03, 2024 8:22am November 03, 2024 8:22am 2.67 k/uL 1.45-7.50 Neutrophi ls (%) (Auto) November 03, 2024 8:22am November 03, 2024 8:22am 44.2 % Nucleated Red Blood Cells # November 03, 2024 8:22am November 03, 2024 8:22am <0.01 k/uL <0.01 Platelet Count November 03, 2024 8:22am November 03, 2024 8:22am 281 k/uL 150-400 Mean Corpuscul ar Hemoglobi n November 03, 2024 8:22am November 03, 2024 8:22am 31.9 pg 26.0-34.0 Mean Corpuscul ar Hemoglobi n Concent November 03, 2024 8:22am November 03, 2024 8:22am 34.0 g/dL 30.5-36.0 Mean Corpuscul ar Volume November 03, 2024 8:22am November 03, 2024 8:22am 93.9 fL 80.0-100.0 Red Blood Count November 03, 2024 8:22am November 03, 2024 8:22am 4.26 m/uL 4.20-6.00 Hematocri t November 03, 2024 8:22am November 03, 2024 8:22am 40.0 % 39.0-51.0 Monocytes (%) (Auto) November 03, 2024 8:22am November 03, 2024 8:22am 6.6 % Corrected White Blood Count November 03, 2024 8:22am November 03, 2024 8:22am 6.03 k/uL 3.70-11.00 Nucleated RBC Relative Count (auto) November 03, 2024 8:22am November 03, 2024 8:22am 0.0 /100{WBC} Red Cell Distribut ion Width November 03, 2024 8:22am November 03, 2024 8:22am 14.6 % 11.5-15.0 Mean Platelet Volume November 03, 2024 8:22am November 03, 2024 8:22am 11.0 fL 9.0-12.7 Different ial Comment November 03, 2024 8:22am November 03, 2024 8:22am Auto Immature Granulocy te # (Auto) November 03, 2024 8:22am November 03, 2024 8:22am <0.03 k/uL <0.10 Immature Granulocy te % (Auto) November 03, 2024 8:22am November 03, 2024 8:22am 0.2 % Miscellan eous Pathology Test November 05, 2024 8:53am November 12, 2024 8:59am See comment See report. Scanned copy available in EMR. [facility] [id number] [address] [place] [id number] Microbiology Results Procedure Source Result Collection Date/Time Result Date/Time Result Comment Performing Site RSV (POC) Nasopharyngeal November 19 2:04pm November 19, 2024 2:31pm Quick Strep (POC) Throat November 19, 2024 2:04pm November 19, 2024 2:31pm Diagnostic Imaging Reports Author [facility] Authored 2024 4:30p m Report Dictated Date/Time Dictated By Status Radiology Report 2024 4:30pm Yung gonzalez Jr DO completed [facility] ENTER [facility] Main [place] [address] [place], [place] [id number] XRay Report Signed Patient: Jovani Kong MR#: [id number] : 1960 Acct:[id number] Age/Sex: 64 / M ADM Date: 5 Loc: [place] Room: Type: [facility] Attending Dr: Jax Hastings DO Copies to: Jax Hastings DO~ Ordering Provider: Jax Hastings DO Date of Service: 11/24/24 XR/XR chest 2V*: B33.8 - Other specified viral diseases Chest 2 views CLINICAL HISTORY: Productive cough sinus drainage COMPARISON: Chest 09/20/2024 FINDINGS: Heart is normal in size. No consolidation pneumothorax pleural effusion or free air. Lingular scarring. XR/XR chest 2V* IMPRESSION: NO ACUTE CARDIOPULMONARY ABNORMALITY. Impression dictated by: Yung Pozo Jr., D.O. 2024 4:30 PM Dictation Location: [place] [address] Transcribed By: [facility] 11/24/24 1630 Dictated By: Yung Pozo Jr, DO 11/24/24 1630 Signed By: <Electronically signed by Yung Pozo Jr, DO in OV> 11/24/24 1630 Vital Signs Vital Reading Result Reference Range Collection Date/Time Height 68 [in_i] October 27, 2024 9:57am Weight 78.92 kg October 27, 2024 9:57am Heart Rate 64 /min 60-100 October 27, 2024 9:57am Respiratory rate 18 /min 12-October 27, 2 025 9:57am Oxygen saturation by Pulse oximetry 98 % 95-100 October 27, 2024 9:57a m BP Systolic 110 mm[Hg] 100-140 October 27, 2024 9:57am BP Diastolic 64 mm[Hg] 60-100 October 27, 2024 9:57am BMI (Body Mass Index) 26.4 kg/m2 October 272024 9:57am Height 68 [in_i] November 05, 2024 7:12am Weight 77.11 kg November 05, 2024 7:12am Heart Rate 71 /min 60-100 November 05, 2024 10:30am Respiratory rate 20 /min -November 05, 2 025 10:30am Oxygen saturation by Pulse oximetry 98 % 95-100 November 05, 2024 10:30 am BP Systolic 110 mm[Hg] 100-140 November 05, 2024 10:30am BP Diastolic 76 mm[Hg] 60-100 November 05, 2024 10:30am Height 68 [in_i] November 17, 2024 2:03pm Weight 78.47 kg November 17, 2024 2:03pm Heart Rate 109 /min 60-100 November 17, 2024 2:03pm BP Systolic 120 mm[Hg] 100-140 November 17, 2024 2:03pm BP Diastolic 80 mm[Hg] 60-100 November 17, 2024 2:03pm BMI (Body Mass Index) 26.3 kg/m2 November 172024 2:03pm Height 68 [in_i] November 19, 2024 2:04pm Body Temperature 100.7 [degF] 97.6-99.0 November 19, 2 025 2:04pm Heart Rate 96 /min 60-100 November 19, 2024 2:04pm Respiratory rate 18 /min -November 19, 2 025 2:04pm Oxygen saturation by Pulse oximetry 99 % 95-100 November 19, 2024 2:04p m Height 68 [in_i] January 12, 2025 3:20pm Weight 80.73 kg January 12, 2025 3:20pm Heart Rate 76 /min 60-100 January 12, 2025 3:20pm BP Systolic 120 mm[Hg] 100-140 January 12, 2025 3:20pm BP Diastolic 74 mm[Hg] 60-100 January 12, 2025 3:20pm BMI (Body Mass Index) 27.0 kg/m2 December 172024 3:20pm Advance Directives Advance Directive Response Recorded Date/ Time Advance Directives No July 07, 2023 9:27am Insurance Providers Guarantor Jovani Kong Address [address] [facility] [address] Contact Info. Home Phone: Payer Policy Id Subscriber's Name Subscriber Id Effective Date Expiration Date Nahum MUSA/RUPA [id number] Jovani Kong [id number] Medicaid [id number] Jovani Kong [id number] [facility] Medicaid [id number] Jovani Kong [id number] Encounters Encounter Location(s) Arrival/Admit Date Discharge/Depart Date Provider(s) Departed Physician/Prov ider Office Visit -[facility] October 27, 2024 9:37am October 27, 2024 10:15am Lilliam Cason MD Non-patient / Non-visit -[facility] November 03, 2024 8:22am Harpreet LUNA PA-C Departed [facility] November 05, 2024 6:59am November 05, 2024 10:40am Nathanael Arango MD Non-patient / Non-visit -[facility] November 05, 2024 8:55am Nathanael Arango MD Departed Physician/Prov ider Office Visit -[facility] November 17, 2024 1:57pm November 17, 2024 2:38pm Harpreet Mcghee APRN Departed Physician/Prov ider Office Visit -[facility] November 19, 2024 2:26pm November 19, 2024 2:30pm Jax Hastings DO Departed Clinical -X-Ray [facility] 2024 2:12pm 2024 2:13pm Jax Hastings DO Departed Physician/Prov ider Office Visit -[facility] January 12, 2025 3:14pm January 12, 2025 3:38pm Harpreet Mcghee APRN Recent Diagnosis Onset Date Admit Date Cardiac arrhythmia Unknown October 27 9:37am Essential hypertension Unknown October 27, 2024 9:37am Hyperlipidemia Unknown October 27, 2024 9 :37am Glioma of brain Unknown October 27, 2024 9 :37am PAD (peripheral artery disease) Unknown October 27, 2024 9:37am Abdominal pain Unknown November 17, 2024 1 :57pm Change in bowel habits Unknown November 17, 2024 1:57pm Diarrhea Unknown November 17, 2024 1 :57pm Dysphagia Unknown November 17, 2024 1 :57pm RSV (respiratory syncytial virus infection) Unkn own November 19, 2024 2:26pm Dyspepsia Unknown January 12, 2025 3:14pm GERD (gastroesophageal reflux disease) Unknown January 12, 2025 3:14pm Assessments Author Shilpi Lantigua [facility] Authored November 19, 2024 2:36p m Sooner if needed, the ER if concerns,The above note written by Shilpi Lantigua LPN acting as human recorder, note dictated by Dr. 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 Pt [...] any arrhythmias or high-grade AV block. Assessment: Essential HTN PAD s/p PTCA by vascular surgery HLD Tobacco use Plan: - BP well controlled. Continue Lisinopril 10mg daily & Amlodipine 10mg daily. - Pt is of pravastatin and Zetia due to recent abdominal pain and weight loss. Discussed about starting PCSK9 inhibitor for lipid control. He is agreeable to starting Repatha. Will send prescription. - Continue Plavix 75 mg daily for history of PAD and stenting. - Follow up in 6 months with repeat lipid panel. Author René Montez [facility] Authored November 17, 2024 2:37p m A 63-year-old male patient w ith diagnosis of change in bowel habits, diarrhea, abdominal pain dyspepsia and dysphagia Increase PPI from 40 mg Protonix once daily to 40 mg Protonix twice daily, patient has had improvement with regard to epigastric pain and heartburn but does continue with 2-3 instances of breakthrough per week, patient negative for dysphagia Patient bowel movements have entirely resolved with bowel cleanout due to colonoscopy, continue lifestyle management with regard to avoidance of trigger foods Patient is scheduled 6-month colonoscopy due to polyp burden, colonoscopy scheduled in May Patient to follow-up in this office to discuss PPI efficacy after up titration in 8 weeks Author Shilpi Lantigua [facility] Authored November 19, 2024 2:36p m In house covid, flu, and str ep are negative. RSV is positive today. I did prescribe a zpak and medrol dp for symptom management and ordered a chest x-ray to monitor as he reported having had pneumonia in August. He will call back for results or if symptoms persist/worsen. Future Tests Future scheduled test information is unavailable Pending Tests Pending diagnostic test information is unavailable Future Visits Future appointment information is unavailable Referrals to Other Providers Referral information is unavailable Future Procedures Procedure Name Ordered Date Scheduled Date Discharge Order November 05, 2024 8:59am November 05, 2024 8:59am Future Medications Future medication information is unavailable Patient Instructions Instruction Admit Date Esophagitis Gastritis - ED discharge instructions [facility] Diverticulosis Discharge [facility] Hemorrhoids Discharge Instructions Know your Meds [facility] Colon Polypectomy Discharge Instructions November 05, 2024 6:59am Goals Acute Goals Author Authored Date Experience reduced anxiety * Identifies current stressors * Develops effective coping behaviors * Uses support services as appropriate [facility] November 05, 2024 10:41am Remain free of complications [facility] November 05, 2024 10:41am Understand preop/postop care/sensations * Verbalizes understanding of surgical procedure * Verbalizes understanding of sensations following surgery * Verbalizes understanding of post-op treatment plan [facility] November 05, 2024 10:41am Report pain at tolerable lev el * Uses pain scale appropriately * Identify options for pain control - Analgesics - Narcotics - Non-medication measures [facility] November 05, 2024 10:41am Absence of imbalanced fluid volume s/s [facility] November 05, 2024 10:41am Absence of physical injury [facility] November 05, 2024 10:41am Absence of surgical site inf ection [facility] November 05, 2024 10:41am
--- OUTSIDE RECORDS SUMMARY | 2025-01-26 09:41 | XMS_ITS | Clinical Summary ---
Author Organization [facility] Healthcare Address [address] [place] [address] Care Team Providers Care Waste Disposal Leakage Tester Name Role Phone Jax Hastings DO Primary Care Provider [phone] Allergies Active Allergy Reactions Criticality Noted Date Comments Cephalexin Hives 11/25/2018 Other Reaction(s): hives, Unknown Medications mirtazapine (Remeron) 15 MG tablet 09/02/19 23 Active ibuprofen 600 MG tablet Active hydrOXYzine HCl (Atarax) 25 MG tablet 05/26/20 22 Active citalopram (CeleXA) 20 MG tablet Active ASPIRIN 81 PO Active Multiple Vitamin (MULTIVITAMIN ADULT PO) Take 1 capsule by mouth in the morning. Active amLODIPine (Norvasc) 5 MG tablet Take 1 tablet by mouth Daily Active clotrimazole-b etamethasone (Lotrisone) cream Active clopidogrel (Plavix) 75 MG tablet Take 75 mg by mouth Daily 06/27/19 24 Active ezetimibe (Zetia) 10 MG tablet Take 10 mg by mouth Daily 06/08/20 23 Active rosuvastatin (Crestor) 5 MG tablet Take 5 mg by mouth Daily 06/27/19 24 Active pravastatin (Pravachol) 40 MG tablet Take 40 mg by mouth at bedtime 07/06/19 24 Active lisinopril 5 MG tablet Take 5 mg by mouth Daily 09/05/19 24 Active Brexpiprazole 1 MG tablet 08/02/19 24 Active HYDROcodone-ac etaminophen (Lamont) 5-325 MG tablet 10/10/19 24 Active terbinafine (LamISIL AT) 1 % creamIndicatio ns:Tinea manuum Apply to the affected area on the hand, bid, 30 day supply 42 g 1 11/28/19 24 Active albuterol HFA 90 mcg/act inhaler Inhale 2 puffs every 4 (four) hours if needed 04/10/20 24 Active tiZANidine (Zanaflex) 4 MG capsuleIndicat ions:Cervical stenosis of spinal canal tizanidine 4 mg capsule take 1 capsule by mouth twice a day if needed for MUSCLE SPASTICITY 60 capsule 11 12/30/19 25 Active dexAMETHasone (Decadron) 2 MG tabletIndicati ons:Cervical stenosis of spinal canal 2mg 3 pills po X3 days,2 pills po daily X3 days , then 1 pill po daily X3 days then stop 9 days 18 pills 18 tablet 1 12/30/19 25 Active tiZANidine (Zanaflex) 4 MG capsuleIndicat ions:Cervical stenosis of spinal canal tizanidine 4 mg capsule take 1 capsule by mouth twice a day if needed for MUSCLE SPASTICITY 60 capsule 11 01/31/20 23 025 Discontinued(Re order) Botox 200u vial IJ Soln 200 units injectionIndic ations:Spasmod ic Torticollis Inject 400 units into neck muscles every 90 days 2 each 3 07/20/19 24 025 Discontinued nicotine (Nicoderm CQ) 21 MG/24HR patchIndicatio ns:Cigarette nicotine dependence with nicotine-induc ed disorder Place 1 patch over 24 hours on the skin 1 (one) time each day at the same time Apply 21 mg daily x 6 weeks then apply 14 mg patch daily x 2 weeks then apply 7 mg patch daily x 2 weeks, stop cigarette use at treatment onset 44 patch 08/14/19 24 025 Discontinued busPIRone (Buspar) 5 MG tabletIndicati ons:Generalize d anxiety disorder TAKE 1 TABLET BY MOUTH EVERY MORNING , TAKE ONE TABLET BY MOUTH EVERY EVENING , AND 1 TABLET BEFORE BEDTIME 90 tablet 3 12/31/19 24 025 Discontinued methocarbamol (Robaxin) 500 MG tablet 12/03/19 24 025 Discontinued methocarbamol (Robaxin) 750 MG tabletIndicati ons:Cervical paraspinal muscle spasm Take 1 tablet (750 mg) by mouth in the morning and 1 tablet (750 mg) at noon and 1 tablet (750 mg) in the evening and 1 tablet (750 mg) before bedtime. 120 tablet 3 05/21/20 24 025 Discontinued dexAMETHasone (Decadron) 2 MG tabletIndicati ons:Cervical stenosis of spinal canal 2mg 3 pills po X3 days,2 pills po daily X3 days , then 1 pill po daily X3 days then stop 9 days 18 pills 18 tablet 1 05/21/20 24 025 Discontinued(Re order) pregabalin (Lyrica) 50 MG capsule Take 50 mg by mouth in the morning and 50 mg in the evening. 06/30/19 25 025 Discontinued Active Problems Problem Noted Date Diagnosed Date [...] Encounters Date Type Department Care Team Description 01/08/2025 10:20 AM EDT Office Visit [facility] [address] [place] [address] Anahi Franco PA Melanocytic nevus of trunk (Primary Dx); Seborrheic keratosis; Inflamed seborrheic keratosis; Actinic keratosis; Capillary angioma; History of SCC (squamous cell carcinoma) of skin 01/08/2025 Bamboo flowsheet [facility] [address] [place] [address] Anahi Franco PA 01/08/2025 Travel 01/07/2025 Travel 12/30/2024 Telephone [facility] [address] [place] [address] Ary Lugo, RT. R 12/29/2024 1:30 PM EDT Ancillary Procedure [facility] [address] [place] [phone] Arthrodesis status 12/29/2024 Refill [facility] [address] [place] [phone] Amber Mi MA Cervical stenosis of spinal canal (Primary Dx) 12/29/2024 Travel 12/24/2024 2:00 PM EDT Clinical Support [facility] [address] [place] [phone] Oziel Cadena MD Nerve root and plexus disorder, unspecified (Primary Dx); Acute pain of left shoulder 12/24/2024 Bamboo flowsheet [facility] [address] [place] [address] Oziel Cadena MD 12/24/2024 Travel 12/17/2024 Travel 11/19/2024 Telephone [facility] [address] [facility] [address] [place] [address] Ary Lugo, RT. R 11/12/2024 1:40 PM EDT Clinical Support [facility] [address] [place] [phone] Oziel Cadena MD Nerve root and plexus disorder, unspecified (Primary Dx); Acute pain of left shoulder 11/12/2024 Bamboo flowsheet [facility] [address] [place] [phone] Oziel Cadena MD 11/12/2024 Travel 11/05/2024 Travel [...] Care Team (Late st Contact Info) Description 02/04/2025 2:30 PM EDT Clinical Support [facility] [address] [facility] [address] [place] [address] Oziel Cadena MD [address] [facility] [address] [place] [id number] 01/08/2026 8:30 AM EDT Office Visit [facility] [address] [place] [address] Anahi Franco PA [address] [place] [address] Health Maintenance Due Date Last Done Comments CT Colonography 1960 Colonoscopy 1960 Colorectal Cancer Screening 1960 FIT-DNA 1960 FIT 1960 FOBT 1960 Sigmoidoscopy 1960 Influenza Vaccine (#1) 2025 Procedures Procedure Name Priority Date/Time Associated Diagnosis Comments CRYOTHERAPY SKIN LESION Routine 01/08/2025 10:27 AM EDT Inflamed seborrheic keratosis CRYOTHERAPY SKIN LESION Routine 01/08/2025 10:23 AM EDT Actinic keratosis XR CERVICAL SPINE 2-3 VIEWS Routine 12/29/2024 1:34 PM EDT Arthrodesis status from Last 3 Months Results * Cryotherapy, skin lesion (01/08/2025 10:27 AM EDT) Anahi Franco PA DERM PROCEDURE ORDERABLES Geetha l Result * Cryotherapy, skin lesion (01/08/2025 10:23 AM EDT) Anahi Franco PA DERM PROCEDURE ORDERABLES Geetha l Result * XR cervical spine 2 or 3 [...] lesion. Bilateral calcification carotid arteries. Procedure Note SignDoroteo hurley MD - 12/29/2024 Cervical spine. HISTORY: Cervical [...] Final Result from Last 3 Months Insurance [facility] MEDIC[facility] Care Teams Waste Disposal Leakage Tester Relationship Specialty Start Date End Date Jax Hastings DO PCP - General Family Medicine 02/13/23
--- OUTSIDE RECORDS SUMMARY | 2025-01-26 09:41 | XMS_ITS | Encounter Summary ---
Author Organization [facility] Address [address] [place] [address] Phone Care Team Providers Care Senior Quantity Surveyor Name Role Phone Jax Hastings DO Primary Care Provider [phone] Helder Saleem MD Unavailable [phone] René Narayanan PA-C Unavailable [phone] Encounter Details Date Type Department Care Team (Late st Contact Info) Description 11/07/2024 Scanned Document [facility] [address] [place] [address] [place] [address] [place], [place] [id number] Social History Tobacco Use Types Packs/Day Years Used Date Smoking Tobacco: Every Day Cigarettes 0.5 51.6 Started: 1973 Passive Smoke Exposure: Never Smokeless [...] any time in the past 12 m [facility], were you homeless or living in a usp (including now)? No 04/09/2024 Sex and Gender [...] Description 04/06/2025 9:30 AM EDT Office Visit [facility] [address] [facility] [address] [place] [address] Doretha Harris MD [address] [place] [address] documented as of this encounter Goals Goal [...] documented as of this encounter Care Teams Senior Quantity Surveyor Relationship Specialty Start Date End Date Jax Hastings DO [address] [place] [address] PCP - General 01/03/19 [place] [address] [place] [address] Consulting Physician Hematology and Oncology 10/05/23 René Narayanan PA-C [address] [place] [address] Physician Browning Processor Neurosurgery 12/12/23 documented as of this encounter
--- OUTSIDE RECORDS SUMMARY | 2025-01-26 09:41 | XMS_ITS | Clinical Summary ---
Author Organization [facility] Address [address] [facility], [address] [place] [address] Care Team Providers Care Video Systems Engineer Name Role Phone Jax Hastings DO Primary Care Provider [phone] Allergies Active Allergy Reactions Criticality Noted Date [...] 11/25/2007 FIT/FOBT: Average risk 11/25/2007 Fecal-DNA (Cologuard): [place] ge risk 11/25/2007 Sigmoidoscopy/CT colonography 11/25/2007 Shingles [...] patient's age to complete this topic Insurance [facility] Care Teams Video Systems Engineer Relationship Specialty Start Date End Date Jax Hastings DO [address] [facility] [address] [place] [address] PCP - General Family Medicine 06/13/23
--- OUTSIDE RECORDS SUMMARY | 2025-01-26 09:42 | XMS_ITS | Encounter Summary ---
Author Organization [facility] Address [address] [place] [address] Care Team Providers Care Glue Spreading Machine Operator Name Role Phone Jax Hastings Primary Care Provider [phone] Encounter Details Date Type Department Care Team (Late st Contact Info) Description 05/04/2023 External Result Encounter [facility] External Department Unsolicited Nikole Mota NP [address], [place] [id number] Social History Tobacco Use Types Packs/Day Years [...] Department Care Team (Late Contact Info) Description 02/04/2025 2:30 PM EDT Clinical Support [facility] [address] [place] [address] Oziel Cadena MD [address] [place] [address] 01/08/2026 8:30 AM EDT Office Visit [facility] [address] [place] [address] Anahi Franco PA [address] [place] [address] documented as of this encounter Procedures Procedure [...] Alber Goodson M.D.05/04/2023 4:34 PM Dictation Location: [place] [address] Transcribed By: [facility] 05/04/23 1634 Dictated By: Alber Goodson II, MD 05/04/23 1549 Signed By: <Electronically signed by Alber Goodson II, MD in OV> 05/04/23 1634 Narrative 05/07/2023 4:31 PM EST [facility] Main [address] [address] [address] Scan Report Signed Patient: Jovani Kong MR#: [id number] : 1960 Acct:[id number] Age/Sex: 62 / M ADM Date: 05/04/23 Loc: CT Room: Type: [facility] Attending Dr: Nikole Mota APRN, PHARMACY OPERATIONS COORDINATOR-C Copies to: Nikole Mota APRN, CNP Ordering Provider: Nikole Mota APRN, CNP Date of Service: 05/04/23 CT/CT angio neck: H53.9, I65.23, I65.1, I66.09, I65.29 ([id number]) CT/CT angio head: H53.9, I65.23, I65.1, I66.09, [...] Note Radiology, Radiologist, - 05/07/2023 [facility] Main [place] [address] [place] [address] CT Scan Report Signed Patient: Jovani Kong CMR#: [id number] : 1960Acct:[id number] Age/Sex: 62 / MADM Date: 05/04/23 Loc: CT Room:Type: [facility] Attending Dr: Nikole Mota APRN, PHARMACY OPERATIONS COORDINATOR-C Copies to: Nikole Mota APRN,OCEAN FREIGHT FORWARDER Ordering Provider: Nikole Mota APRN,LUCIO Date of Service: 05/04/23 CT/CT angio neck: H53.9, I65.23, I65.1, I66.09,I65.29 ([id number]) CT/CT angio head: H53.9, I65.23, I65.1, I66.09, [...] Alber Goodson M.D.05/04/2023 4:34 PM Dictation Location: [place] [address] Transcribed By: [facility] 05/04/23 1634 Dictated By: Alber Goodson II, MD 05/04/23 1549 Signed By: <Electronically signed by Alber Goodson II, MD inOV> 05/04/23 1634 us Nikole Mota PHARMACY OPERATIONS COORDINATOR IMG CT PROCEDURES Final Result documented in this encounter Visit Diagnoses Not on filedocumented in this encounter Care Teams Glue Spreading Machine Operator Relationship Specialty Start Date End Date Jax Hastings DO PCP - General Family Medicine 02/13/23 documented as of this encounter
--- OUTSIDE RECORDS SUMMARY | 2025-01-26 09:42 | XMS_ITS | Encounter Summary ---
Author Organization [facility] Address [address] [place] [address] Care Team Providers Care Asphalt Engineer Name Role Phone Jax Hastings Primary Care Provider [phone] Jax Hastings Unavailable [phone] Oziel Cadena MD Unavailable [phone] Source Comments In the event this information is protected by the Federal Confidentiality of Alcohol and Drug AbusePatient Records regulations: The Federal rules restrict any use of the information to criminally investigate or prosecute any alcohol or drug abuse patient.[facility] Encounter Details Date Type Department Care Team [...] 10:15 AM EDT Appointment Radiology Pet CT [address] [place] [address] [place] [address] Ct CN with contrast and lab 11/06/2025 9:00 AM EDT Visit (SP) Office Hematology/Oncology [address] [place] [address] [place] [address] Memo Acevedo MD [address] [place] [address] [place] [address] 1 year follow up for ct and lab results documented as of this encounter Visit Diagnoses Not on filedocumented in this encounter Care Teams Asphalt Engineer Relationship Specialty Start Date End Date Jax Hastings [address] [place] [phone] PCP - General Family Medicine 11/20/18 Jax Hastings [address] [place] [phone] Referring Family Medicine 11/20/18 Oziel Cadena MD [address] [facility] [address] [address] Referring Neurology 08/18/22 documented as of this encounter
--- OUTSIDE RECORDS SUMMARY | 2025-01-26 09:42 | XMS_ITS | Encounter Summary ---
Author Organization [facility] Address [address] [place] [address] Phone Care Team Providers Care Propagation Worker Name Role Phone Jax Hastings DO Primary Care Provider [phone] Helder Saleem MD Unavailable [phone] René Narayanan PA-C Unavailable [phone] Encounter Details Date Type Department Care Team (Late st Contact Info) Description 04/10/2024 Scanned Document [facility] [address] [place] [address] Doretha Harris MD [address] [place], [place] [id number] Social History Tobacco Use Types Packs/Day Years [...] any time in the past 12 m [facility], were you homeless or living in a prison (including now)? No 04/09/2024 Sex and Gender [...] 04/06/2025 9:30 AM EDT Office Visit [facility] [id number] [place] [address] Doretha Harris MD [address] [place], [place] [address] documented as of this encounter Goals Goal [...] documented as of this encounter Care Teams Propagation Worker Relationship Specialty Start Date End Date Jax Hastings DO [address] [place] [address] PCP - General 01/03/19 [place] [address] [place] [address] Consulting Physician Hematology and Oncology 10/05/23 René Narayanan, KARLOC [address] [place] [address] Physician Composite Bond Worker Neurosurgery 12/12/23 documented as of this encounter
--- OUTSIDE RECORDS SUMMARY | 2025-01-26 09:42 | XMS_ITS | Clinical Summary ---
Author Organization [facility] Address [address] [place] [address] Phone Care Team Providers Care Sand Mill Operator Core Sand Name Role Phone DarlingJax Neisha JOSÉ Primary Care Provider [phone] Helder Saleem MD Unavailable René Narayanan PA-C Unavailable [phone] Allergies Active Allergy Reactions Criticality Noted Date [...] Type Department Care Team Description 12/30/2024 Telephone [facility] [address] [facility] [address] [place] [address] Asya Ashley MA 11/07/2024 Scanned Document [facility] [address] [place] [address] Connor Nichole MD from Last 3 Months Family History [...] any time in the past 12 m [facility], were you homeless or living in a custodial (including now)? No 04/09/2024 Sex and Gender [...] Description 04/06/2025 9:30 AM EDT Office Visit [facility] [address] [facility] [address] [place] [address] Camille Harris MD [address] [place] [address] Health Maintenance Due Date Last Done Comments CT Colonography 1962 Colonoscopy 1962 Colorectal Cancer Screening 1962 FIT-DNA (Cologuard) 1962 FIT 1962 HIV Screening 1962 Lipid Panel 1962 Sigmoidoscopy 1962 Welcome to Medicare Visit 1962 MMR Vaccines (1 of 1 - Standard series) 11/25/1963 Hepatitis C Screening 1980 Pneumococcal Vaccine (1 of 2 - PCV) 1981 Lung Cancer Screening 2012 PSA Prostate Cancer Screening 2012 Zoster Vaccines (1 of 2) 2012 RSV High Risk: (Elderly (60+) or Population) (1 - Risk 60-74 years 1-dose series) 2022 COVID-19 Vaccine (1 - season) 2024 DTaP/Tdap/Td Vaccines (2 - Td or Tdap) 03/15/2024 03/15/2014 Influenza Vaccine (#1) 2025 Diabetes Screening 04/10/2025 04/10/2024, 0 02/11/2024, 02/01/2019, Additional history exists Bone Density Scan Discontinued 02/13/2024 HIB Vaccines Aged Out No longer [...] Harris MD Medical Devices Implanted Type Area Chemical Process Engineer Device Identifier Shelf Expiration Date Model / Serial / Lot Allograft, [employer]ad [employer]otic 6 X 11 X 14 - [id number] - [id number] Implanted:Qt y: 1 on 04/09/2024 by Rojas Edwards MD at [facility] Spinal Hardware N/A: [employer] 03/14/2028 [id number] / [id number] / Allograft, Triad Lordotic 6 X 11 X 14 - [id number] - [id number] Implanted:Qt y: 1 on 04/09/2024 by Rojas Edwards MD at [facility] Spinal Hardware N/A: [employer] 04/29/2028 [id number] / [id number] / Plate, Acp, 1.6v, 2 Level, 34mm - [id number] Implanted:Qt y: 1 on 04/09/2024 by Rojas Edwards MD at [facility] Spinal Hardware N/A: [employer] [id number] / / Screw, Acp, Self Drill, 3.5 X 17mm, Variable - [id number] Implanted:Qt y: 2 on 04/09/2024 by Rojas Edwards MD at [facility] Spinal Hardware N/A: [employer] [id number] / / 3.5 X 19mm Screw Implanted:Qt y: 4 on 04/09/2024 by Rojas Edwards MD at [facility] N/A: [employer] [id number] / / Description:per bill only brent r 04/10 Procedures Procedure Name Priority Date/Time Associated Diagnosis Comments BASIC METABOLIC PANEL Routine 04/10/2024 9:19 AM EDT DEXA BONE DENSITY Routine 02/13/2024 10: 50 AM EDT Cervical radiculopathy from Last 3 Months or Most Recently Relevant to Health Maintenance Results * (ABNORMAL) Basic metabolic panel (04/10/2024 9:19 AM EDT) [facility] Glucose 159(H) 74 - 99 mg/dL LAB CHEMISTRY METHOD 04/10/2024 10:32 AM EDT [facility] Sodium 138 136 - 145 mmol/L LAB CHEMISTRY METHOD 04/10/2024 10:32 AM EDT [facility] Potassium 4.5 3.5 - 5.3 mmol/L LAB CHEMISTRY METHOD 04/10/2024 10:32 AM EDT [facility] Chloride 103 98 - 107 mmol/L LAB CHEMISTRY METHOD 04/10/2024 10:32 AM EDT [facility] Bicarbonate 26 21 - 32 mmol/L LAB CHEMISTRY METHOD 04/10/2024 10:32 AM EDT [facility] Anion Gap 14 10 - 20 mmol/L LAB CHEMISTRY METHOD 04/10/2024 10:32 AM EDT [facility] Urea Nitrogen 14 6 - 23 mg/dL LAB CHEMISTRY METHOD 04/10/2024 10:32 AM EDT [facility] Creatinine 0.86 0.50 - 1.30 mg/dL LAB CHEMISTRY METHOD 04/10/2024 10:32 AM EDT [facility] eGFR >90 >60 mL/min/1. 73m*2 LAB CHEMISTRY METHOD 04/10/2024 10:32 AM EDT [facility] Comment: Calculations of estimated GFR are performed using the 2020 CKD-EPI Study Refit equation without the race variable for the IDMS-Traceable creatinine methods. https://jasn.asnjournals.org/content/early//ASN.8148807833 Calcium 9.0 8.6 - 10.6 mg/dL LAB CHEMISTRY METHOD 04/10/2024 10:32 AM EDT [facility] Blood Venous blood specimen / Unknown Venipuncture / Unknown 04/10/2024 9:19 AM EDT 04/10/2024 10:03 AM EDT us Camille Harris MD LAB BLOOD ORDERABLES Final Resul t [facility] [address] [facility] [address] [place] [address] * XR DEXA bone density (02/13/2024 10:50 AM EDT) 12/29/2024 8:11 AM EDT 12/29/2024 8:11 AM EDT Impressions [facility] - 12/29/2024 8:09 AM EDT DEXA: Moderately low bone mineral density FRAX and Z-Score calculations include ethnicity in determining the score for these values, as determined by organizations such as the NIH, WHO and NOF. All images and detailed analysis are available on the Radiology PACS. MACRO: None Signed by: Ruddy Lopez 12/29/2024 8:09 AM Dictation workstation: [id number] Narrative [facility]AL - 12/29/2024 8:09 AM EDT Interpreted By: Ruddy Lopez, STUDY: DEXA BONE DENSITY02/13/2024 10:50 am INDICATION: Signs/Symptoms:r/o osteoporosis, NEED AXIAL SKELETON IMAGES.. The patient is a 63 y/o year old M. ,M54.12 Radiculopathy, cervical region COMPARISON: None. ACCESSION NUMBER(S): [id number] ORDERING CLINICIAN: CAMILLE HARRIS TECHNIQUE: DEXA BONE [...] Radiculopathy, cervical region COMPARISON: None. ACCESSION NUMBER(S): [id number] ORDERING CLINICIAN: CAMILLE HARRIS TECHNIQUE: DEXA BONE [...] Ruddy Lopez 12/29/2024 8:09 AM Dictation workstation: [id number] us Camille Harris MD IMG DXA PROCEDURES Final Result [facility] from Last 3 Months or Most Recently Relevant to Health Maintenance Additional Health Concerns Active Problems Noted Date Diagnosed Date Patient has spine surgery 01/09/2024 Insurance [facility] MEDICARE PART A AND B Member Subscriber Plan / Payer (Ef fective 2024-Present) Name:Jovani Kong Member ID:[id number] Relation to Subscriber:Self Name:Jovani Kong Subscriber ID:[id number] Payer ID:Not on file Group ID:Not on file Type:Not on file Address: [place] [id number] [facility] MEDICARE PART A AND B Advance Directives For more information, please contact: [phone] (Available ) Documents on File Type Date Recorded 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
--- OUTSIDE RECORDS SUMMARY | 2025-01-26 09:42 | XMS_ITS | Encounter Summary ---
Author Organization [facility] Address [address] [place] [address] Care Team Providers Care Diamond Merchant Name Role Phone Andreagideon Jax Neisha JOSÉ Primary Care Provider [phone] Encounter Details Date Type Department Care Team (Late Contact Info) Description 03/13/2023 Abstract [facility] [address] [place] [address] Oziel Cadena MD [address], [place] [address] Social History Tobacco Use Types Packs/Day Years [...] Description 02/04/2025 2:30 PM EDT Clinical Support [facility] [place] [facility] [address] [facility] [address] [place] [address] Oziel Cadena MD 24[address] [facility] [address] [id number] 01/08/2026 8:30 AM EDT Office Visit [facility] [address] [facility] [address] [place] [address] Anahi Franco PA [address] [facility] [address] [place] [address] documented as of this encounter Visit Diagnoses Not on filedocumented in this encounter Care Teams Diamond Merchant Relationship Specialty Start Date End Date Jax Hastings DO PCP - General Family Medicine 02/13/23 documented as of this encounter
--- OUTSIDE RECORDS SUMMARY | 2025-01-26 09:42 | XMS_ITS | Encounter Summary ---
Author Organization [facility] Address [address] [place] [address] Phone Care Team Providers Care Base Filler Name Role Phone Jax Hastings DO Primary Care Provider [phone] Helder Saleem MD Unavailable [phone] René Narayanan PA-C Unavailable [phone] Encounter Details Date Type Department Care Team (Late st Contact Info) Description 02/18/2023 Patient Risk Score ACO Care Management [address] [place] [address] Social History Tobacco Use Types [...] Description 04/06/2025 9:30 AM EDT Office Visit [facility] [address] [facility] [address] [place] [address] Doretha Harris MD [address] [place], [place] [address] documented as of this encounter Visit Diagnoses Not on filedocumented in this encounter Care Teams Base Filler Relationship Specialty Start Date End Date Jax Hastings DO [address] [place] [address] PCP - General 01/03/19 [place] [address] [place] [address] Consulting Physician Hematology and Oncology 10/05/23 René Narayanan PA-C [address] [place] [address] Physician It Desktop Support Technician Neurosurgery 12/12/23 documented as of this encounter
--- OUTSIDE RECORDS SUMMARY | 2025-01-26 09:42 | XMS_ITS | Encounter Summary ---
Author Organization [facility] Address [address] [place] [address] Phone Care Team Providers Care Mineral Technologist Name Role Phone Jax Hastings DO Primary Care Provider [phone] Helder Saleem MD Unavailable [phone] René Narayanan PA-C Unavailable [phone] Encounter Details Date Type Department Care Team (Late st Contact Info) Description 01/09/2024 Scanned Document [facility] [address] [place] [address] Doretha Harris MD [address] [place], [place] [address] Social History Tobacco Use Types Packs/Day Years [...] Description 04/06/2025 9:30 AM EDT Office Visit [facility] [address] [facility] [address] [place] [address] Doretha Harris MD [address] [place] [address] documented as of this encounter Goals Goal [...] documented as of this encounter Care Teams Mineral Technologist Relationship Specialty Start Date End Date Jax Hastings DO [address] [place] [address] PCP - General 01/03/19 [place] [address] [place] [address] Consulting Physician Hematology and Oncology 10/05/23 René Narayanan PA-C [address] [place] [address] Physician Tractor Driver Teamster Neurosurgery 12/12/23 documented as of this encounter
--- OUTSIDE RECORDS SUMMARY | 2025-01-26 09:42 | XMS_ITS | Encounter Summary ---
Author Organization [facility] Address [address] [place] [address] Phone Care Team Providers Care Youth Leader Name Role Phone Jax Hastings DO Primary Care Provider [phone] Helder Saleem MD Unavailable [phone] René Narayanan PA-C Unavailable [phone] Encounter Details Date Type Department Care Team (Late st Contact Info) Description 12/12/2023 Scanned Document [facility] [address] [place] [address] René Narayanan PA-C [address] [facility] [address], [facility] [address] [place], [place] [address] Social History Tobacco Use Types Packs/Day Years [...] Description 04/06/2025 9:30 AM EDT Office Visit [facility] [address] [facility] [address] [place] [address] Doretha Harris MD [address] [place] [address] documented as of this encounter Visit Diagnoses Not on filedocumented in this encounter Additional Health Concerns Assessment Noted Time A fall risk assessment has been complete d for the patient 12/12/2023 1:10 PM EDT documented as of this encounter Care Teams Youth Leader Relationship Specialty Start Date End Date Jax Hastings DO [address] [place] [address] PCP - General 01/03/19 [place] [address] [place] [address] Consulting Physician Hematology and Oncology 10/05/23 MilkRené meneses PA-C [address] [id number] Physician Television Installer Helper Neurosurgery 12/12/23 documented as of this encounter
--- OUTSIDE RECORDS SUMMARY | 2025-01-26 09:42 | XMS_ITS | Encounter Summary ---
Author Organization [facility] Address [address] [place] [address] Care Team Providers Care Director China Name Role Phone Jax Hastings Primary Care Provider [phone] Encounter Details Date Type Department Care Team (Late st Contact Info) Description 12/11/2023 Orders Only [facility] [address], [place] [address] Amber Mi MA Social History Tobacco Use [...] Clinical Support [facility] [address] [place] [address] Oziel Cadena MD [address], [place] [address] 01/08/2026 8:30 AM EDT Office Visit [facility] [address] [place] [address] Anahi Franco PA [address] [place] [address] documented as of this encounter Visit Diagnoses Not on filedocumented in this encounter Care Teams Director China Relationship Specialty Start Date End Date Jax Hastings DO PCP - General Family Medicine 02/13/23 documented as of this encounter
--- OUTSIDE RECORDS SUMMARY | 2025-01-26 09:42 | XMS_ITS | Encounter Summary ---
Author Organization [facility] Address [address] [place] [address] Phone Care Team Providers Care Accounting Professional Name Role Phone Jax Hastings DO Primary Care Provider [phone] Helder Saleem MD Unavailable [phone] René Narayanan PA-C Unavailable [phone] Encounter Details Date Type Department Care Team (Late st Contact Info) Description 01/14/2024 Scanned Document [facility] [address] [place] [address] Doretha Harris MD [address] [place], [place] [address] Social History Tobacco Use Types Packs/Day Years [...] Description 04/06/2025 9:30 AM EDT Office Visit [facility] [address] [facility] [address] [place] [address] Doretha Harris MD [address] [place] [address] documented as of this encounter Goals Goal [...] documented as of this encounter Care Teams Accounting Professional Relationship Specialty Start Date End Date Jax Hastings DO [address] [place] [address] PCP - General 01/03/19 [place] [address] [place] [address] Consulting Physician Hematology and Oncology 10/05/23 René Narayanan PA-C [address] [place] [address] Physician Typesetting Supervisor Neurosurgery 12/12/23 documented as of this encounter
--- OUTSIDE RECORDS SUMMARY | 2025-01-26 09:42 | XMS_ITS | Encounter Summary ---
Author Organization [facility] Address [address] [place] [address] Phone Care Team Providers Care Sprinkling Truck Driver Name Role Phone Jax Hastings DO Primary Care Provider [phone] Helder Saleem MD Unavailable [phone] René Narayanan PA-C Unavailable [phone] Encounter Details Date Type Department Care Team (Late st Contact Info) Description 01/18/2023 Patient Risk Score ACO Care Management [address] [place] [address] Social History Tobacco Use Types [...] Description 04/06/2025 9:30 AM EDT Office Visit [facility] [address] [facility] [address] [place] [address] Doretha Harris MD [address] [place], [place] [address] documented as of this encounter Visit Diagnoses Not on filedocumented in this encounter Care Teams Sprinkling Truck Driver Relationship Specialty Start Date End Date Jax Hastings DO [address] [place] [address] PCP - General 01/03/19 [place] [address] [place] [address] Consulting Physician Hematology and Oncology 10/05/23 René Narayanan PA-C [address] [place] [address] Physician Water Quality Analyst Neurosurgery 12/12/23 documented as of this encounter
--- OUTSIDE RECORDS SUMMARY | 2025-01-26 09:42 | XMS_ITS | Encounter Summary ---
Author Organization [facility] Address [address] [place] [address] Phone Care Team Providers Care Banking Analyst Name Role Phone Jax Hastings DO Primary Care Provider [phone] Helder Saleem MD Unavailable [phone] René Narayanan PA-C Unavailable [phone] Encounter Details Date Type Department Care Team (Late st Contact Info) Description 10/10/2024 Scanned Document [facility] [address] [facility] [address] [place] [address] Doretha Harris MD [address] [place], [place] [address] Social History Tobacco Use Types Packs/Day Years [...] any time in the past 12 m [facility], were you homeless or living in a [...] Description 04/06/2025 9:30 AM EDT Office Visit [facility] [address] [facility] [address] [place] [address] Doretha Harris MD [address] [place] [address] documented as of this encounter Goals Goal [...] documented as of this encounter Care Teams Banking Analyst Relationship Specialty Start Date End Date Jax Hastings DO [address] [place] [address] PCP - General 01/03/19 [place] [address] [place] [address] Consulting Physician Hematology and Oncology 10/05/23 René Narayanan PA-C [address] [place] [address] Physician Hospital Cleaning Specialist Neurosurgery 12/12/23 documented as of this encounter
--- OUTSIDE RECORDS SUMMARY | 2025-01-26 09:42 | XMS_ITS | Encounter Summary ---
Author Organization [facility] Address [address] [place] [address] Phone Care Team Providers Care Academic Hospitalist Name Role Phone Jax Hastings DO Primary Care Provider [phone] Helder Saleem MD Unavailable [phone] René Narayanan PA-C Unavailable [phone] Encounter Details Date Type Department Care Team (Late st Contact Info) Description 12/18/2022 Patient Risk Score ACO Care Management [address] [place] [address] Social History Tobacco Use Types [...] 9:30 AM EDT Office Visit [facility] [address] [facility] [address] [place] [address] Doretha Harris MD [address] [place], [place] [address] documented as of this encounter Visit Diagnoses Not on filedocumented in this encounter Care Teams Academic Hospitalist Relationship Specialty Start Date End Date Jax Hastings DO [address] [place] [address] PCP - General 01/03/19 [place] [address] [place] [address] Consulting Physician Hematology and Oncology 10/05/23 René Narayanan PA-C [address] [place] [address] Physician Pc Analyst Neurosurgery 12/12/23 documented as of this encounter
--- OUTSIDE RECORDS SUMMARY | 2025-01-26 09:42 | XMS_ITS | Encounter Summary ---
Author Organization [facility] Address [address] [facility] [place] [address] Care Team Providers Care Board Operator Name Role Phone Jax Hastings DO Primary Care Provider [phone] Encounter Details Date Type Department Care Team (Late st Contact Info) Description 04/03/2023 Abstract [facility] [address] [place] [address] Nikole Mota, PORT CAPTAIN [address] [place] [address] Social History Tobacco Use Types Packs/Day Years [...] [facility] [address] [facility] [address] [place] [address] Oziel Cadena MD 8958 [facility] [address] [id number] 01/08/2026 8:30 AM EDT Office Visit [facility] [address] [facility] [address] [place] [address] Anahi Franco PA [address] [facility] [address] [place] [address] documented as of this encounter Visit Diagnoses Not on filedocumented in this encounter Care Teams Board Operator Relationship Specialty Start Date End Date Jax Hastings DO PCP - General Family Medicine 02/13/23 documented as of this encounter
--- OUTSIDE RECORDS SUMMARY | 2025-01-26 09:42 | XMS_ITS | Encounter Summary ---
Author Organization [facility] Address [address] [place] [address] Phone Care Team Providers Care Computer Discovery Teacher Name Role Phone Jax Hastings DO Primary Care Provider [phone] Jax Hastings DO Unavailable Jax Hastings DO Unavailable Helder Saleem MD Unavailable [phone] René Narayanan PA-C Unavailable [phone] Encounter Details Date Type Department Care Team (Late st Contact Info) Description 02/13/2019 Orders Only [facility] [address] [place] [address] Conversion, Onbase Social History Tobacco Use Types [...] 04/06/2025 9:30 AM EDT Office Visit [facility] [address] [facility] [address] [place] [address] Doretha Harris MD [address] [place], [place] [address] Scheduled Orders Name Type Priority Associated Diagnoses Belén barnes Schedule OUTSIDE LAB SCAN Lab Ordered: 02/13/2019 documented as of this encounter Visit Diagnoses Not on filedocumented in this encounter Care Teams Computer Discovery Teacher Relationship Specialty Start Date End Date Jax Hastings DO [address] [place] [address] PCP - General 01/03/19 Jax Hastings DO [address] [place], [place] [address] PCP - [facility] PCP 09/16/21 11/15/22 Jax Hastings DO [address] [place], [place] [address] [facility] 10/16/21 12/15/22 [place] [address] [place] [address] Consulting Physician Hematology and Oncology 10/05/23 René Narayanan PA-C [address] [place] [address] Physician Beef Lugger Neurosurgery 12/12/23 documented as of this encounter
--- OUTSIDE RECORDS SUMMARY | 2025-01-26 09:42 | XMS_ITS | Clinical Summary ---
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 Last address used for calculation [address] [place] [address] 11/03/2022 Sex and Gender Information Value Date Recorded Sex Assigned at Male 09/20/2022 2:46 PM EDT Legal Sex Male 10:55 AM EDT Gender Identity Male 09/20/2022 2:46 PM EDT Sexual Orientation Straight 09/20/2022 2: 46 PM EDT Occupation Industry Job Start Date Job End Date [place] Not on file Not on file Not [...] AM EDT Appointment Radiology [facility] [address] [address] Ct CN with contrast and lab 11/06/2025 9:00 AM EDT Visit (SP) Office Hematology/Oncology [address] [address] Memo Acevedo MD [address] [address] 1 year follow up for [...] 2012 Shingrix Vaccine (1 of 2) 2012 Medicare Annual Wellness Visit 02/17/2024 DTaP,Tdap,Td Vaccine [...] any questions regarding this interpretation, please call [phone]. If you are unable to reach us at the number above, please feel free to contact [facility] at [phone]. Narrative 11/03/2024 12:25 PM EDT * * *Final Report* * * DATE OF EXAM: Nov 03 2024 8:41AM [facility] 0539 - CT CHEST W IVCON [...] images: No additional findings. Procedure Note Provider, [facility] [place] - 11/03/2024 * * *Final Report* * * DATE OF EXAM: Nov 03 2024 8:41AM [facility] 0539 - CT CHEST W IVCON [...] any questions regarding this interpretation, please call [phone]. If you are unable to reach us at the number above, please feel free to contact [facility] at [phone]. us Memo Acevedo MD CT-[facility] Final Result [...] 1. No evidence of abnormal lymph nodes. [email or web address] Transcribe Date/Time: Nov 03 2024 8:53A Dictated by: BENJAMIN AL MD This examination was interpreted and the report reviewed and electronically signed by: BENJAMIN AL MD on Nov 03 2024 9:01AM EST Thank you for allowing us to participate in the care of your patient. Should there be any questions regarding this interpretation, please call [phone]. If you are unable to reach us at the number above, please feel free to contact [facility] at [phone]. Narrative 11/03/2024 9:03 AM EDT * * *Final Report* * * DATE OF EXAM: Nov 03 2024 8:41AM [facility] 0013 - CT NECK SOFT TISSUE [...] mass. Other: Not applicable. Procedure Note Provider, [facility] [place] - 11/03/2024 * * *Final Report* * * DATE OF EXAM: Nov 03 2024 8:41AM [facility] 0013 - CT NECK SOFT TISSUE [...] 1. No evidence of abnormal lymph nodes. [email or web address] Transcribe Date/Time: Nov 03 2024 8:53A Dictated by: BENJAMIN AL MD This examination was interpreted and the report reviewed and electronically signed by: BENJAMIN AL MD on Nov 03 2024 9:01AM EST Thank you for allowing us to participate in the care of your patient. Should there be any questions regarding this interpretation, please call [phone]. If you are unable to reach us at the number above, please feel free to contact [facility] at [phone]. us Memo Acevedo MD CT-[facility] Final Result * COMPLETE BLOOD COUNT AND DIFFERENTIAL (11/03/2024 8:22 AM EDT) WBC 6.03 3.70 - 11.00 k/uL 11/03/2024 8:27 AM EDT [facility] RBC 4.26 4.20 - 6.00 m/uL 11/03/2024 8:27 AM EDT [facility] Hemoglobin 13.6 13.0 - 17.0 g/dL 11/03/2024 8:27 AM EDT [facility] Hematocrit 40.0 39.0 - 51.0 % 11/03/2024 8:27 AM EDT [facility] MCV 93.9 80.0 - 100.0 fL 11/03/2024 8:27 AM EDT [facility] MCH 31.9 26.0 - 34.0 pg 11/03/2024 8:27 AM EDT [facility] MCHC 34.0 30.5 - 36.0 g/dL 11/03/2024 8:27 AM EDT [facility] RDW-CV 14.6 11.5 - 15.0 % 11/03/2024 8:27 AM EDT [facility] Platelet Count 281 150 - 400 k/uL 11/03/2024 8:27 AM EDT [facility] MPV 11.0 9.0 - 12.7 fL 11/03/2024 8:27 AM EDT [facility] Neutrophils % 44.2 % 11/03/2024 8:27 AM EDT [facility] Abs Neut 2.67 1.45 - 7.50 k/uL 11/03/2024 8:27 AM EDT [facility] Lymphocytes % 45.3 % 11/03/2024 8:27 AM EDT [facility] Abs Lymph 2.73 1.00 - 4.00 k/uL 11/03/2024 8:27 AM EDT [facility] Monocytes % 6.6 % 11/03/2024 8:27 AM EDT [facility] Abs Dixie 0.40 <0.87 k/uL 11/03/2024 8:27 AM EDT [facility] Eosinophils % 2.7 % 11/03/2024 8:27 AM EDT [facility] Abs Eosin 0.16 <0.46 k/uL 11/03/2024 8:27 AM EDT [facility] Basophils % 1.0 % 11/03/2024 8:27 AM EDT [facility] Abs Baso 0.06 <0.11 k/uL 11/03/2024 8:27 AM EDT [facility] Immature Granulocytes % 0.2 % 11/03/2024 8:27 AM EDT [facility] Abs Immature Gran <0.03 <0.10 k/uL 025 8:27 AM EDT [facility] NRBC 0.0 /100 WBC 11/03/2024 8:27 AM EDT [facility] Absolute nRBC <0.01 <0.01 k/uL 11/03/2024 8:27 AM EDT [facility] Diff Type Auto 11/03/2024 8:27 AM EDT [facility] Blood BLOOD SPECIMEN / Unknown Venipuncture / Unknown 11/03/2024 8:22 AM EDT 11/03/2024 8:24 AM EDT Elizabeth SAAVEDRA-C LABORATORY Final Result [facility] [address] [place] [address] * EXTERNAL LAB (11/03/2024 8:10 AM EDT) Only the most recent of2 resultswithin the time period is included. External Provider PA-C LABORATORY Final Res ult * (ABNORMAL) COMP METABOLIC PANEL (10/26/2023 9:02 AM EDT) Protein, Total 6.4 6.3 - 8.0 g/dL 10/26/2023 9:39 AM EDT [facility] Albumin 4.3 3.9 - 4.9 g/dL 10/26/2023 9:39 AM EDT [facility] Calcium, Total 9.9 8.5 - 10.2 mg/dL 10/26/2023 9:39 AM EDT [facility] Bilirubin, Total 0.5 0.2 - 1.3 mg/dL 10/26/2023 9:39 AM EDT [facility] Alkaline Phosphatase 75 38 - 113 U/L 10/26/2023 9:39 AM EDT [facility] AST 9(L) 14 - 40 U/L 10/26/2023 9:39 AM [facility] ALT 10 10 - 54 U/L 10/26/2023 9:39 AM [facility] Glucose 89 74 - 99 mg/dL 10/26/2023 9:39 AM [facility] Comment: The [place] Diabetes Association (ADA) provides guidance for cutoff [...] Standards of Medical Care in Diabetes 2016, [place] Diabetes Association. Diabetes Care. 2016.39(Suppl 1). BUN 16 9 - 24 mg/dL 10/26/2023 9:39 AM [facility] Creatinine 1.01 0.73 - 1.22 mg/dL 10/26/2023 9:39 AM [facility] Sodium 141 136 - 144 mmol/L 10/26/2023 9:39 AM [facility] Potassium 4.0 3.7 - 5.1 mmol/L 10/26/2023 9:39 AM [facility] Chloride 106(H) 97 - 105 mmol/L 10/26/2023 9:39 AM [facility] CO2 27 22 - 30 mmol/L 10/26/2023 9:39 AM [facility] Anion Gap 8(L) 9 - 18 mmol/L 10/26/2023 9:39 AM [facility] Estimated Glomerular Filtration Rate 85 >=60 mL/min/1. 73m 10/26/2023 9:39 AM [facility] Comment:Estimated Glomerular [...] us Memo Acevedo MD LABORATORY Final Result [facility] [address] [place] [address] from Last 3 Months or Most Recently Relevant to Health Maintenance Insurance [facility] CHOICE PLUS MEDICARE Care Teams Envelope Adjuster Relationship Specialty Start Date End Date Jax Hastings [address] [place] [phone] PCP - General Family Medicine 11/20/18 Jax Hastings [address] [place] [phone] Referring Family Medicine 11/20/18 Oziel Cadena MD [address] [facility] [place] [address] Referring Neurology 08/18/22
--- OUTSIDE RECORDS SUMMARY | 2025-01-26 09:42 | XMS_ITS | Encounter Summary ---
Author Organization [facility] Address [address] [place] [address] Phone Care Team Providers Care Manager Of Clinical Name Role Phone Jax Hastings DO Primary Care Provider [phone] Helder Saleem MD Unavailable [phone] René Narayanan PA-C Unavailable [phone] Encounter Details Date Type Department Care Team (Late st Contact Info) Description 01/11/2024 Scanned Document [facility] [address] [place] [address] Doretha Harris MD [address] [place], [place] [id number] Social History Tobacco Use Types Packs/Day Years [...] Description 04/06/2025 9:30 AM EDT Office Visit [facility] [address] [facility] [address] [place] [phone] Doretha Harris MD [address] [place] [address] documented as of this encounter Goals Goal [...] documented as of this encounter Care Teams Manager Of Clinical Relationship Specialty Start Date End Date Jax Hastings DO [address] [place] [address] PCP - General 01/03/19 [place] [address] [place] [address] Consulting Physician Hematology and Oncology 10/05/23 René Narayanan PA-C [address] [place] [address] Physician Privacy Director Neurosurgery 12/12/23 documented as of this encounter
--- OUTSIDE RECORDS SUMMARY | 2025-01-26 09:42 | XMS_ITS | Encounter Summary ---
Author Organization [facility] Address [address] [place] [address] Care Team Providers Care Marine Design Engineer Name Role Phone AndreaJax meneses Neisha JOSÉ Primary Care Provider [phone] Encounter Details Date Type Department Care Team (Late st Contact Info) Description 02/19/2023 Abstract [facility] [address] [facility] [address] [place] [address] Mary Henderson, NICK [address] [facility] [address] [place] [address] Social History Tobacco Use Types Packs/Day Years [...] Clinical Support [facility] [address] [place] [address] Oziel Cadena MD [address] [facility] [address] [place] [address] 01/08/2026 8:30 AM EDT Office Visit [facility] [address] [place] [address] Anahi Franco PA [address] [place] [address] documented as of this encounter Visit Diagnoses Not on filedocumented in this encounter Care Teams Marine Design Engineer Relationship Specialty Start Date End Date Jax Hastings DO PCP - General Family Medicine 02/13/23 documented as of this encounter
[2025-01-26 09:43] VITALS: BP 134/88; PULSE 80; TEMP 36.3; O2SAT 99
[2025-01-26 10:09] VITALS: BP 131/67; PULSE 75; O2SAT 97
[2025-01-26] MEDS: BUPIVACAINE HCL 0.25% PF 25 MG/10 ML VIAL INJ (10:11)
[2025-01-26] MEDS: LIDOCAINE HCL 2% 400 MG/20 ML MDV INJ (10:11)
[2025-01-26] MEDS: DEXAMETHASONE SOD PHOS 10 MG/ML VIAL INJ (10:11)
[2025-01-26] MEDS: IOHEXOL 240 MG/ML - 10 ML VIAL 12 MG INJ (10:11)
--- NOTE | 2025-01-26 10:11 | P.ON_ITS ---
Date of procedure: 01/26/25 Pre-op diagnosis: M54.12 Post-op diagnosis: same as pre-op Procedure: Procedure: Left C5-6, 6-7 transforaminal epidural steroid injection Medications: Bupivacaine 0.25% 1cc, lidocaine 2% 1cc, dexamethasone 10mg The patient was seen and examined in the preoperative holding area.? Informed consent was obtained and placed on the chart.? Patient was brought to the medical procedure unit and placed in the prone position where a timeout was completed verifying the correct patient, procedure site, position, and planned special equipment using sterile aseptic technique.? Under direct fluoroscopic visualization a 25-gauge Quincke tipped spinal needle was advanced to the designated neural foramen where contrast dye was injected to show adequate spread.? The needle was inserted at level left C5-6. There was no evidence of vascular or adverse uptake.? Epidural spread was appreciated.? The above- mentioned injectate was then placed in a 1.5 mL aliquot preceded by negative aspiration.? The needle was removed. The needle was inserted and the procedure r epeated at level left C6-7.? The surgery site was covered.? Patient was taken to the postprocedural recovery area and monitored for an appropriate length of time before found suitable for discharge in the accompaniment of a responsible adult. Anesthesia: Local Surgeon: Sarina Ramsey Pathology: none sent Condition: stable Disposition: no change
[2025-01-26 10:12] VITALS: BP 159/69; PULSE 71; O2SAT 99
== END 2025-01-26 10:16 | disposition home or self-care (01) ==
LOC: SURGOUT 09:37
PROVIDERS: PCP Family Medicine; Visit Provider Anesthesiology
DX: M54.12 Radiculopathy, cervical region (principal)
CPT/HCPCS: 64479; 64480; J0665; J1100; Q9966

== ENCOUNTER 2025-01-27 08:50 | Outpatient (OUT) | payer MEDICARE, OTHER, SELFPAY ==
--- NOTE | 2025-01-27 08:54 | ECG_ITS ---
[facility] Test Date: 2025-01-27 Pat Name: SHANTEL MELENDEZ Department: Room: - Gender: Male Mix Maker: : 1960 Requested By: Jax Hastings Order Number: [id number] Reading MD: AMI GOODRICH M.D. Measurements Intervals Diablo Rate: 71 P: 72 SC: 252 QRS: 43 QRSD: 89 T: 53 QT: 406 QTc: 443 Interpretive Statements SINUS RHYTHM WITH FIRST DEGREE AV BLOCK Abnormal ECG No previous ECG available for comparison Electronically Signed On 01-27-2025 13:57:19 EDT by AMI GOODRICH M.D.
[2025-01-27 10:09] LABS: Hematocrit 38.0 % (42.0-54.0); Hemoglobin 13.0 g/dL (14.0-18.0); Immature Granulocytes Abs Auto 0.02 10^3/uL (0.00-0.03); Immature Granulocytes Pct Auto 0.2 % (0.0-0.5); Lymphocytes Absolute Auto 2.4 10^3/uL (1.2-3.8); Mean Corpuscular HGB Conc 34.2 g/dL (29.9-35.2); Mean Corpuscular Hemoglobin 32.1 pg (25.9-34.0); Mean Corpuscular Volume 93.8 fL (80.0-94.0); Platelet Count 214 10^3/uL (150-450); Red Blood Count 4.05 10^6/uL (4.70-6.10); White Blood Count 8.2 10^3/uL (4.0-11.0)
[2025-01-27 10:26] LABS: INR 1.09; Partial Thromboplastin Time 24.2 sec (22.3-36.2); Prothrombin Time 11.5 sec (9.0-11.6)
[2025-01-27 10:42] LABS: Anion Gap 7.0; Blood Urea Nitrogen 17.0 mg/dL (7.0-18.0); Calcium 9.2 mg/dL (8.5-10.1); Carbon Dioxide 28.7 mmol/L (21.0-32.0); Chloride 106 mmol/L (98-107); Estimated GFR (African America >60 (>=60 mL/min/1.73m^2); Estimated GFR (Non-African Ame >60 (>=60 mL/min/1.73m^2); Glucose 89 mg/dL (74-106); Potassium 3.7 mmol/L (3.5-5.1); Sodium 138 mmol/L (136-145)
== END 2025-01-27 08:51 | disposition home or self-care (01) ==
LOC: PST 08:50
PROVIDERS: PCP Family Medicine; Visit Provider Anesthesiology
DX: Z01.810 Encounter for preprocedural cardiovascular examination (principal); Z01.812 Encounter for preprocedural laboratory examination; Z01.818 Encounter for other preprocedural examination; M48.02 Spinal stenosis, cervical region
CPT/HCPCS: 80048; 85025; 85610; 85730; 93005; G0463

== ENCOUNTER 2025-02-09 06:35 | Day surgery (SDC) | payer MEDICARE, OTHER, SELFPAY ==
[2025-01-27 09:28] VITALS: BP 134/87; PULSE 101; TEMP 36.3; O2SAT 98; BMI 25.4
--- NOTE | 2025-01-27 14:58 | PM.PRESUREVA ---
History of Present Illness History of Present Illness Chief complaint: Cervical SCS Trial Narrative: Mr. Jovani Kong is a pleasant 64-year-old male who presents to presurgical testing for cervical spinal cord stimulator trial scheduled with Dr. Ramsey on 02/09/2025 for the diagnosis of cervical stenosis. He continues to have complaints of pain to the neck and into the left shoulder. Review of Systems ROS Narrative REVIEW OF SYSTEMS: Negative except as stated in HPI, ten or more systems reviewed. Constitutional: No fever, chills, weakness ENT: No sore throat or epistaxis Cardiovascular: No edema, chest pain, palpitations, or activity intolerance Respiratory: No shortness of breath, cough, or wheezing Musculoskeletal: Complaints of pain into the left neck and shoulder Gastrointestinal: No abdominal pain, constipation, diarrhea, or vomiting Genitourinary: No dysuria or hematuria Neurological: Complaint of decreased sensation to the left upper extremity denies weakness, or headache and reports intermittent dizziness Psychiatric: No mood changes PFSH PFS Medical History (Updated 01/27/25 @ 15:06 by Mayela Ruiz) Tongue carcinoma ?C02.9 - Malignant neoplasm of tongue, unspecified (ICD-10) First degree AV block ?I44.0 - Atrioventricular block, first degree (ICD-10) Claudication of both lower extremities ?I73.9 - Peripheral vascular disease, unspecified (ICD-10) Nicotine dependence with current use ?F17.200 - Nicotine dependence, unspecified, uncomplicated (ICD-10) Oral cancer ?C06.9 - Malignant neoplasm of mouth, unspecified (ICD-10) Cervical radiculopathy ?M54.12 - Radiculopathy, cervical region (ICD-10) Myofascial pain ?M79.18 - Myalgia, other site (ICD-10) Left shoulder pain ?M25.512 - Pain in left shoulder (ICD-10) Mononeuropathy of left suprascapular nerve ?G56.82 - Other specified mononeuropathies of left upper limb (ICD-10) Neuropathy, axillary nerve ?G56.90 - Unspecified mononeuropathy of unspecified upper limb (ICD-10) Cervical spondylosis ?M47.812 - Spondylosis without myelopathy or radiculopathy, cervical region (ICD-10) Degenerative disc disease, cervical ?M50.30 - Other cervical disc degeneration, unspecified cervical region (ICD-10) Chronic prescription opiate use ?Z79.891 - halfway (current) use of opiate analgesic (ICD-10) Myalgia, other site ?M79.18 - Myalgia, other site (ICD-10) Failed neck syndrome ?M96.1 - Postlaminectomy syndrome, not elsewhere classified (ICD-10) Malignant neoplasm of head and neck ?C76.0 - Malignant neoplasm of head, face and neck (ICD-10) Squamous cell carcinoma Skin cancer ?C44.90 - Unspecified malignant neoplasm of skin, unspecified (ICD-10) Osteoarthritis ?M19.90 - Unspecified osteoarthritis, unspecified site (ICD-10) Depression ?F32.A - Depression, unspecified (ICD-10) Anxiety ?F41.9 - Anxiety disorder, unspecified (ICD-10) Seasonal allergies ?J30.2 - Other seasonal allergic rhinitis (ICD-10) Cataract ?H26.9 - Unspecified cataract (ICD-10) GERD (gastroesophageal reflux disease) ?K21.9 - Gastro-esophageal reflux disease without esophagitis (ICD-10) Dyspnea on exertion ?R06.09 - Other forms of dyspnea (ICD-10) PVD (peripheral vascular disease) ?I73.9 - Peripheral vascular disease, unspecified (ICD-10) High cholesterol ?E78.00 - Pure hypercholesterolemia, unspecified (ICD-10) Neck pain ?M54.2 - Cervicalgia (ICD-10) Low back pain ?M54.50 - Low back pain, unspecified (ICD-10) Smoker ?F17.200 - Nicotine dependence, unspecified, uncomplicated (ICD-10) Irregular heart beat ?I49.9 - Cardiac arrhythmia, unspecified (ICD-10) Hypertension ?I10 - Essential (primary) hypertension (ICD-10) Surgical History (Updated 01/27/25 @ 10:11 by Mayela Ruiz) Status post surgical removal of malignant neoplasm of skin ?Z98.890 - Other specified postprocedural states (ICD-10) History of tonsillectomy ?Z90.89 - Acquired absence of other organs (ICD-10) Status post cervical spinal fusion ?Z98.1 - Arthrodesis status (ICD-10) Cataract extraction status of left eye ?Z98.42 - Cataract extraction status, left eye (ICD-10) H/O cervical spine surgery ?Z98.890 - Other specified postprocedural states (ICD-10) H/O neck dissection ?Z98.890 - Other specified postprocedural states (ICD-10) Family History (Updated 01/27/25 @ 09:30 by Mayela Ruiz) Other Family history of COPD (chronic obstructive pulmonary disease) Family history of diabetes mellitus Family history of emphysema Family history of heart disease Family history of hypertension Family history of stroke Family history of throat cancer Social History (Updated 01/27/25 @ 09:28 by Mayela Ruiz) Within the past year, how often did you have a drink containing alcohol: never Score interpretation: A score less than 4 is consistent with normal alcohol consumption. Smoking status: Current every day smoker Non-prescribed substance use: denies use Previous occupational history: disabled Highest level of school completed/degree received: high school graduate Little interest or pleasure in doing things: not at all Feeling down, depressed, or hopeless: not at all Meds Home Medications and Allergies Home Medications ?Medication ?Instructions ?Recorded ?Confirmed ?Type amlodipine 5 mg tablet (Norvasc) 10 mg PO DAILY 04/16/23 01/27/25 History aspirin 81 mg tablet,delayed 81 mg PO DAILY 04/16/23 01/27/25 History release (Adult Low Dose Aspirin) naloxone 4 mg/actuation nasal 4 mg intranasal Q2M PRN opioid 09/11/24 01/26/25 Rx spray (Narcan) overdose #2 ea hydrocodone 7.5 mg-acetaminophen 1 tab PO BID PRN pain #60 tabs 01/01/25 01/27/25 Rx 325 mg tablet alirocumab 75 mg/mL subcutaneous 75 mg subcut Q14D 01/27/25 01/27/25 History pen injector (Praluent Pen) citalopram 10 mg tablet 10 mg PO DAILY 01/27/25 01/27/25 History ezetimibe 10 mg tablet 10 mg PO DAILY 01/27/25 01/27/25 History multivitamin (Daily Multi-Vitamin 1 tab PO DAILY 01/27/25 01/27/25 History tablet) pantoprazole 40 mg tablet,delayed 40 mg PO Q12H 01/27/25 01/27/25 History release pravastatin 40 mg tablet 40 mg PO DAILY 01/27/25 01/27/25 History tizanidine 4 mg capsule 4 mg PO Q12H 01/27/25 01/27/25 History Allergies Allergy/AdvReac Type Severity Reaction Status Date / Time cephalexin (From Keflex) Allergy Unknown hives Verified 01/27/25 09:21 Exam Narrative Exam Narrative: Constitutional: Awake, alert, comfortable, well-appearing, nontoxic, interactive, vital signs as charted Head: Normocephalic, atraumatic Eyes: Conjunctiva and lids normal to inspection, pupils normal ENT: Tympanic membranes pearly arzate, nonerythematous, noninjected, naris patent, posterior oropharynx clear, oral mucosa moist Neck: Supple, normal appearance, decreased cervical range of motion tenderness with palpation across the paracervical muscles no C-spine tenderness 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 strength is 5 out of 5 resisted in flexion extension of upper extremities with strength is 5 out of 5 positive radial pulse 2+, no meningeal signs, no lymphadenopathy, surgical scar extending throughout the right lateral neck, no carotid bruit Respiratory: No respiratory distress, breath sounds clear Cardiovascular: Regular rate and rhythm, strong and regular heart tones Abdomen: Nontender, normal bowel sounds, soft, no CVA tenderness Musculoskeletal: Normal gait, no swelling or edema Skin: No rashes or induration, no lesions, only visible skin inspected Neuro: No neurological deficits, normal sensation Psychiatric: Oriented ?3, normal affect Constitutional Vital Signs, click to edit/add: Last Vital Signs Temp 97.3 F L 01/27/25 09:28 Pulse 101 H 01/27/25 09:28 Resp 16 01/27/25 09:28 BP 134/87 01/27/25 09:28 Pulse Ox 98 01/27/25 09:28 O2 Del Method Room Air 01/27/25 09:28 Assessment and Plan Assessment and Plan (1) Cervical stenosis of spinal canal: Plan Cervical spinal cord stimulator trial scheduled February 09, 2025
--- OUTSIDE RECORDS SUMMARY | 2025-02-09 06:40 | XMS_ITS | CCD ---
Author Organization [facility] Care Team Providers Care Landscape Architecture Professor Name Role Phone Griselda Hastings Primary Care Provider Griselda Hastings Attending Provider Griselda Hastings Unavailable Unavailable Unavailable Griselda Hastings Unavailable Sheng Schneider Unavailable Griselda Hastings Primary Care Provider Griselda Hastings Unavailable DO Griselda Hastings Primary Care Provider MD Elvi Cadena Attending Provider BAILEY Gaytan Emergency Provider [phone] MD Loi Wong Jr Emergency Provider Unavailable Unavailable DO Griselda Hastings Primary Care Provider MD Elvi Cadena Attending Provider BAILEY Gaytan Emergency Provider [phone] MD Loi Wong Jr Emergency Provider BAILEY Mota Attending Provider BAILEY Mota Attending Provider DO Griselda Hastings Primary Care Provider MD Elvi Cadena Attending Provider [phone] Trish Carney Unavailable Griselda Hastings Primary Care Provider Griselda Hastings Unavailable Tammi NORRIS, Elvi Ruiz Unavailable DEMOND CAT Attending Unavailable DEMOND CAT Admitting Unavailable KUNSGRISELDA ADRIANA Primary Care Unavailable Kuns, DO Griselda Primary Care Provider [phone] Kuns, DO Griselda Attending Provider [phone] MD Lima Joseph Attending Provider Dr. BRET HDEZ Attending Unavailable PCP, OTHER Primary Care Unavailable PCP, Other Primary Care Physician [phone] Andreas, DO Griselda Primary Care Provider BAILEY Gaytan Emergency Provider DO Rohit Agrawal Emergency Provider Darling, DO Camara Attending Provider [phone] Lilliam Cason Unavailable Andreas, DO Griselda Primary Care Provider BAILEY Gaytan Emergency Provider DO Rohit saavedra Emergency Provider [phone] Darling, DO Camara Attending Provider MD Lilliam Cason Attending Provider [phone] Ruddy Harvey Unavailable [phone] BAILEY Mota Attending Provider MD Ruddy Harvey Attending Provider Kuns, DO Griselda Primary Care Provider Kuns DO, Griselda R Primary Care Provider Kuns, DO Griselda Primary Care Provider ADDIS KHAN Attending Unavailable ADDIS KHAN Referring Unavailable KUNS, GRISELDA R Primary Care Unavailable ADDIS KHAN Attending Unavailable BORSELLINO, ADDIS R Referring Unavailable KUNS, GRISELDA R Primary Care Unavailable Andreas, Griselda Primary Care Provider MD Ruddy Harvey Attending Provider [phone] Griselda Hastings DO Primary Care Provider Griselda Hastings DO Primary Care Provider Ignacia Jack MD Unavailable [phone] AndreasDO Camara Attending Provider Griselda Hastings Primary Care Provider Tammi NORRIS, Elvi Ruiz Unavailable Griselda Hastings DO Primary Care Provider Milks PA-C, Solomon A Unavailable Milks PA-C, Solomon A Unavailable Griselda Hastings DO Primary Care Provider [phone] Darling JOSÉ, Griselda Primary Care Provider Milks PA-C, Solomon A Attending Provider Griselda Hastings DO Primary Care Provider [phone] Milks PA-C, Solomon A Attending Provider Wes NORRIS, Ruddy Moraes Attending Provider Humberto NORRIS, Daisy Driver Emergency Provider [phone] Roxy NORRIS, Andrius Vytautas Attending Unavailable Giedraitis , Andrius Vytautas Attending Unavailable Giedraitis , Andrius Vytautas Attending Unavailable Giedraitis , Andrius Vytautas Attending Unavailable Giedraitis , Andrius Vytautas Attending Unavailable Giedraitis , Andrius Vytautas Attending Unavailable Giedraitis , Andrius Vytautas Attending Unavailable Griselda Hastings DO Primary Care Provider [phone] Griselda Hastings DO Primary Care Provider Manisha Negron APRN Emergency Provider [phone] Kuns DO, Griselda Other Provider Safmarthae Manisha AVALOS Attending Provider [phone] Solomon Narayanan PA-C Attending Provider Kuns DO, Griselda R Primary Care Provider [phone] Ignacia Jack MD Unavailable Soolmon Narayanan PA-C Unavailable SHIMON HEATON Referring Unavailable KUNS, GRISELDA R Primary Care Unavailable IGNACIA JACK Attending Unavailable SOSHIMON MERINO Referring Unavailable KUNS, GRISELDA R Primary Care Unavailable HARRIS, XIAOFEI Admitting Unavailable HARRIS, XIAOFEI Attending Unavailable KUNS, GRISELDA R Primary Care Unavailable KUNS, GRISELDA R Primary Care Unavailable HARRIS, XIAOFEI Referring Unavailable KUNS, GRISELDA R Primary Care Unavailable HARRIS, XIAOFEI Referring Unavailable KUNS, GRISELDA R Primary Care Unavailable HARRIS, XIAOFEI Admitting Unavailable HARRIS, XIAOFEI Attending Unavailable KUNS, GRISELDA R Primary Care Unavailable KUNS, GRISELDA R Referring Unavailable KUNS, GRISELDA R Primary Care Unavailable HARRIS, XIAOFEI Referring Unavailable KUNS, GRISELDA R Primary Care Unavailable HARRIS, XIAOFEI Referring Unavailable KUNS, GRISELDA R Primary Care Unavailable HARRIS, XIAOFEI Referring Unavailable KUNS, GRISELDA R Primary Care Unavailable ABHYANKAR, MEMO Referring Unavailable ABHYANKAR, MEMO Attending Unavailable KUNS, GRISELDA ADRIANA Primary Care Unavailable ABHYANKAR, MEMO Referring Unavailable KUNS, GRISELDA ADRIANA Primary Care Unavailable Nathanael Arango MD Attending Provider [phone] Andreas DO Griselda Attending Provider [phone] Manisha Negron Admitting Unavailable SaffleManisha Attending Unavailable Kuns, Griselda Primary Care Unavailable Kuns, Griselda Consulting Unavailable Kuns, Griselda Primary Care Unavailable MilksSolomon Admitting Unavailable MilksSolomon Attending Unavailable Kuns, Griselda Primary Care Unavailable Asaad, Imad Admitting Unavailable Asahi, Imad Attending Unavailable Manisha Negron Admitting Unavailable SafflManisha alvarado Attending Unavailable Kuns, Griselda Primary Care Unavailable Kuns, Griselda Primary Care Unavailable Daisy Paul R Admitting Unavailable Daisy Paul R Attending Unavailable Kuns, Griselda Attending Unavailable Kuns, Griselda Admitting Unavailable Kuns, Griselda Primary Care Unavailable Milks, Solomon Nae Admitting Unavailable Milks, Solomon Soni Attending Unavailable Kuns, Griselda Primary Care Unavailable Langenberg, Ruddy T Attending Unavailabl e Kuns, Griselda Primary Care Unavailable Langenberg, Ruddy T Admitting Unavailabl e HARRIS, XIAOFEI Referring Unavailable KUNS, GRISELDA R Primary Care Unavailable HARRIS, XIAOFEI Referring Unavailable KUNS, GRISELDA R Primary Care Unavailable HARRIS, XIAOFEI Referring Unavailable KUNS, GRISELDA R Primary Care Unavailable MILKS, SOLOMON A Attending Unavailable KUNS, GRISELDA R Primary Care Unavailable HARRIS, XIAOFEI Attending Unavailable KUNS, GRISELDA R Primary Care Unavailable HARRIS, XIAOFEI Attending Unavailable KUNS, GRISELDA R Primary Care Unavailable Kuns DO, Griselda Primary Care Provider Lilliam Cason MD Attending Provider [phone] Elizabeth Hagan PA-C Attending Provider Nathanael Arango MD Other Provider Solomon Montez APRN Attending Provider Griselda Hastings DO Attending Provider ELVI CADENA Attending Unavailable ELVI CADENA Attending Unavailable ELVI CADENA Attending Unavailable ELVI CADENA Attending Unavailable CAMILLE HARRIS Referring Unavailable KARIME FRANCO Attending Unavailable ELVI CADENA Attending Unavailable CADENAELVI ARNOLD Attending Unavailable ELVI CADENA Attending Unavailable Unavailable Unavailable Unavailable Allergies Allergy Classification Reported Allergen(s) Allergy Type Date of Onset Reaction(s) Facility Cephalosporins (antibiotic) (1 source) Cephalexin Drug Allergy 8 [facility] (20 sources) Cephalexin; Translations: [CEPHALEXIN] Drug Allergy 8 [facility] (20 sources) Cephalexin; Translations: [Keflex] Drug Allergy [facility] [place] Other (1 source) Cephalexin; Translations: [Keflex] Drug Allergy [facility] [place] (17 sources) Keflet; Translations: [KEFLET] Propensity to adverse reactions [facility] NEGATED: Highlighted row has been ruled out! (1 source) natural latex rubber; Translations: [LATEX, NATURAL RUBBER] Drug allergy (disorder) [facility] [place] NEGATED: Highlighted row has been ruled out! (1 source) No IV Contrast Allergy.; Translations: [IV Dye, Iodine Containing] Drug allergy (disorder) [facility] [place] Medications Current Medications Medication Drug Class(es) Dates [...] patient preference? Yes acetaminophen 325 mg / HYDROcodone bitartrate 7.5 mg oral tablet (20 sources) Opioid Agonist Start: 10-06-2024 take 1 tablet by mouth twice daily as needed for pain Hydrocodone-Aceta minophen 7.5-325 mg tablet Active 1 TAB PO Twice daily as needed for pain October 06, 2024 12:00am Complies with drug therapy Start: 04-01-2024 End: 04-28-2024 take 1 tablet by mouth twice daily Hydrocodone-Acetaminophen 7.5-300 mg tablet Discontinued 1 TAB PO Twice daily April 01, 2024 12:00am April 28, 2024 10:44am Start: 10-10-2023 HYDROcodone-ac etaminophen ([place]) 5-325 MG tablet 10/10/2023 Active Start: 09-05-2023 End: 04-01-2024 take 1 tablet by mouth every eight hours as needed Hydrocodone-Acetaminophen 5-325 mg table t Discontinued TAB PO Every 8 hours as needed September 05, 2023 12:00am April 01, 2024 11:01am Start: 06-04-2023 take 1 tablet by myles th once daily as needed for pain HYDROcodone-acetaminophen ([place]) 5-325 MG tablet take 1 tablet orally daily NEEDED FOR PAIN MUST LAST 30 DAYS 10/10/2023 Active Start: 12-10-2017 End: 04-29-2018 take 1 tablet by mouth every four hours Hydrocodone-Acetaminophen ([place]) 5-325 mg tablet Discontinued 1 TAB PO Q4H December 10, 2017 April 29, 2018 3:12pm End: 04-10-2024 take 1.5 tablets by mouth twice daily as needed for pain HYDROcodone-acetaminophen ([place]) 5-325 mg tablet Take 1.5 tablets by mouth 2 times a day as needed for severe pain (7 - 10). 04/10/2024 Discontinued (Stop Taking at Discharge) acetaminophen 325 mg / oxyCODONE hydrochloride 5 mg oral tablet (20 sources) Opioid Agonist Start: 04-30-2024 End: 05-07-2024 take 1 tablet by mouth every six hours for pain oxyCODONE-acetaminophen (Percocet) 5-325 mg tablet Indications: Acute postoperative pain Take 1 tablet by mouth every 6 hours if needed for severe pain (7 - 10) (pain) for up to 7 days. 28 tablet 04/30/2024 05/07/2024 Active Start: 04-28-2024 End: 09-20-2024 take 1 tablet by mouth every eight hours as needed Oxycodone-Acetaminophen (Percocet) 5-325 mg tablet Discontinued 1 TAB PO Every 8 hours as needed April 28, 2024 1:00am September 20, 2024 11:05am Start: 04-10-2024 End: 04-17-2024 take 1 tablet [...] Every 6 hours as needed for pain 05 10April 17, 2022 July 17, 2022 9:01am 1 ml alirocumab 75 mg/ml auto-injector (1 source) PCSK9 Inhibitor Start: 11-03-2024 inject 75 mg by subcutaneous injection every other week Alirocumab (Praluent Pen) 75 mg/mL pen injector Active 75 MG SUBCUT Q14D 7 90 November 03, 2024 12:00am Complies with drug therapy Alirocumab (Praluent Pen) 75 mg/mL pen injector (3 sources) Start: 11-03-2024 inject 75 mg by subcutaneous injection every other week Alirocumab (Praluent Pen) 75 mg/mL pen injector Active 75 MG SUBCUT Q14D 7 November 03, 2024 12:00am aspirin 81 mg delayed release oral tablet [...] MG PO Daily August 02, 2023 1:00am Complies with drug therapy Start: 07-17-2022 End: 08-02-2023 take 1 capsule by mouth once daily Aspirin 81 mg Capsule Discontinued 81 MG PO Daily July 17, 2022 1:00am August 02, 2023 1:45pm ASPIRIN 81 PO Ac tive ASPIRIN 81 PO As pir-81 Active ASPIRIN [...] oral tablet (20 sources) Macrolide Antimicrobial Start: Azithromycin (Zithromax Z-Slim) 250 mg tablet Active 0 PO .COMPLEX November 19, 2024 12:00am For 250 mg dose pack: take 500 mg today (day 1), then 250 mg for 4 days (days 2-5) PO Complies with drug therapy Start: 09-20-2024 End: 10-06-2024 take 2 tablets by mouth once daily Azithromycin 250 mg tablet Discontinued 250 MG PO Daily 4 September 20, 2024 12:00am October 06, 2024 2:06pm start on day 2 of therapy Start: 07-02-2023 Zithromax Z-Pa k 250 MG as directed Orally as directed [...] 04-09-2024 take 1 tablet by mouth every twenty-four hours as needed brexpiprazole 1 mg oral tablet (20 sources) Atypical Antipsychotic Start: 08-02-2023 End: 10-18-2023 take 0.5 mg by mouth once daily Brexpiprazole Discontinued 0.5 MG PO Daily August 02, 2023 2:09pm October 18, 2023 8:55am Start: 08-02-2023 End: 10-18-2023 Brexpiprazole 1 MG tablet Active Start: 05-31-2023 take 1 tablet by myles th every twenty-four hours Rexulti 1 MG 1 tablet Orally Once a day samples provided May, Active Start: 05-31-2023 take 1 tablet by myles th every twenty-four hours Rexulti 0.5 MG 1 tablet Orally Once a day for 7 days samples provided May, Active busPIRone hydrochloride 10 mg oral tablet (20 sources) Start: 04-09-2024 take 5 mg by mouth twice daily 5 mg, oral, 2 times daily, First dose on Sun04/09/24 at 2100, Phase II/On Unit Start: 01-31-2024 End: 07-03-2024 Buspirone 5 mg tablet Discon tinued 5 MG PO January 31, 2024 12:00am July 03, 2024 10:50am Start: 12-31-2023 End: 01-08-2025 take 1 tablet by mouth once daily in the morning, then take 1 tablet by mouth once daily in the evening, then take 1 tablet by mouth at bedtime busPIRone (Buspar) 5 MG tablet Indications: Generalized anxiety disorder TAKE 1 TABLET BY MOUTH EVERY MORNING , TAKE ONE TABLET BY MOUTH EVERY EVENING , AND 1 TABLET BEFORE BEDTIME 90 tablet 3 12/31/2023 01/08/2025 Discontinued calcium chloride 0.0014 meq/ ml / potassium [...] 02/11/2024 04/10/2024 Discontinued (Stop Taking at Discharge) clopidogrel 75 mg oral tablet (20 sources) [...] 2024. 04/14/2024 04/10/2024 Discontinued Start: 05-07-2023 End: 01-12-2025 take 1 tablet by mouth once daily clopidogrel (Plavix) 75 MG tablet Take 75 mg by mouth Daily 06/27/2023 Active cyclobenzaprine hydrochloride 10 mg oral [...] daily as needed for Muscle Spasm March 21, 2023 12:00am May 07, 2023 9:22am doxycycline hyclate 100 mg oral capsule (11 sources) Tetracycline-class Drug Start: 11-25-2024 take 1 capsule by mouth twice daily Doxycycline Hyclate 100 mg capsule Active 100 MG PO Twice daily 06 04November 25, 2024 12:00am Complies with drug therapy Start: 11-05-2018 End: 10-17-2022 take 1 capsule by mouth every twelve hours doxycycline monohydrate (MONODOX) 100 mg capsule TAKE 1 CAPSULE BY MOUTH EVERY 12 HOURS FOR 10 DAYS 0 11/05/2018 10/17/2022 Discontinued Comment on above: TAKE 1 CAPSULE BY [facility] EVERY 12 HOURS FOR 10 DAYS 0.4 ml enoxaparin sodium 100 mg/ml prefilled syringe (1 source) Low Molecular Weight Heparin Start: 2023 inject 40 mg by subcutaneous injection every twenty-four hours 40 mg, subcutaneous, Every 24 hours, First dose on Lynda 04/10/24 at 0000, Phase II/On Unit, Indications: deep vein thrombosis prevention 1 ml galcanezumab-gnlm 120 mg/ml auto-injector (7 sources) Emgality 120 MG/ ML as directed Subcutaneous Active glucagon (rdna) 1 mg injection (2 sources) Antihypoglycemic Agent Start: 2023 50 ml glucose 500 mg/ml prefilled syringe (2 sources) Start: 2023 1 ml HYDROmorphone hydrochloride 0.2 mg/ml prefilled syringe (3 sources) Opioid Agonist Start: 2023 take 0.2 mg intravenously every four hours [...] (20 sources) Antihistamine Start: 05-26-2022 End: 09-05-2023 hydrOXYzine HCl (Atarax) 25 MG tablet 05/26/2022 Active Comment on above: take 1 to 2 tablets by mouth at bedtime if needed iv contrast (will be provided with radiology test) (20 sources) Start: 11-02-2023 End: 11-03-2023 iv contrast (will be provided with radiology [...] in the MR contrast administration guidelines link methylPREDNISolone 4 mg oral tablet (20 sources) Corticosteroid Start: 11-26-19 Methylprednisolone 4 mg tablets,dose pack Active 0 PO per package directions November 25, 2024 12:00am PO PER PKG DIR Complies with drug therapy Start: 11-19-2024 take 1 tablet by mouth once Me thylprednisolone (Medrol (Slim)) 4 mg tablets,dose pack Active 0 PO per package directions November 19, 2024 12:00am PO PER PKG DIR for 6 days Complies with drug therapy Start: 08-02-2023 End: 08-02-2023 Methylprednisolone 4 mg tabl ets,dose pack Discontinued MG PO As Directed August [...] as directed Orally as directed Jun, Active mirtazapine 15 mg oral table t (20 sources) Start: 09-01-2022 End: 10-06-2024 mirtazapine (Remeron) 15 MG tablet 09/01/2022 Active Start: 09-01-2022 End: 10-29-2023 take 0.5 tablet by mouth once daily at bedtime as needed Mirtazapine 15 mg tablet Discontinued MG PO Daily at bedtime as needed September 05, 2023 1:35pm October 29, 2023 10:19am FreeTextSi/2 tablet at bedtime Orally Once a day; Note: Source Status: Taking; Provider: Darling Camara ( ) Start: 07-17-2022 End: 08-02-2023 take 1 tablet by mouth at bedtime as needed Mirtazapine 7.5 mg Tablet Discontinued 7.5 MG PO Bedtime as needed for Insomnia July 17, 2022 1:00am August 02, 2023 1:49pm Comment on above: Take by mouth daily at bedtime. Multiple Vitamin (MULTIVITAMIN ADULT PO) (18 sources) take 1 capsule by mouth in [...] a day Active Multivitamin (Multiple Vitamins) tablet (20 sources) Start: 08-02-2023 take 1 tablet by mouth once daily Multivitamin (Multiple Vitamins) tablet Active 1 TAB PO Daily August 02, 2023 1:00am Complies with drug therapy Start: 08-02-2023 take 1 tablet by myles th once daily Multivitamin (Multiple Vitamins) tablet Active 1 TAB PO Daily August 02, 2023 1:00am Start: 08-02-2023 take 1 tablet by myles th once daily Multivitamin (Multiple Vitamins) tablet Active 1 TAB PO Daily August 02, 2023 12:00am Multivitamin capsule (15 sources) take 1 capsule by mo uth once daily Multivitamin capsule Take 1 capsule by mouth once daily. Active take 1 capsule by mouth once danitza ly Multivitamin capsule Take 1 capsule by mouth once daily. 0 Active Comment on above: Take 1 capsule by mo uth once daily. Naloxone (1 source) Opioid Antagonist Start: 04-09-2024 oxyCODONE hydrochloride 10 mg oral tablet (3 sources) Opioid Agonist Start: 04-09-2024 take 1 tablet by mouth every four [...] pain scores based on patient preference? Yes pantoprazole 40 mg delayed release oral tablet (8 sources) Proton Pump Inhibitor Start: 11-17-2024 take 1 tablet by mouth twice daily Pantoprazole 40 mg tablet,delayed release (DR/EC) Active 40 MG PO Twice daily 60 30 November 17, 2024 2:10pm Complies with drug therapy Start: 11-05-2024 End: 11-17-2024 take 1 tablet by mouth once daily at bedtime Pantoprazole 40 mg tablet,delayed release (DR/EC) Discontinued 40 MG PO Daily at bedtime 56 56 November 05, 2024 12:00am November 17, 2024 2:16pm polyethylene glycol 3350 35880 mg powder for oral solution (1 source) Osmotic Laxative Start: 04-09-2024 17 g, oral, 2 times daily, First dose on Sun04/09/24 at 2100, Phase II/On Unit, Bowel Regimen - for prevention of constipation. rosuvastatin calcium 5 mg oral tablet (20 sources) HMG-CoA Reductase Inhibitor Start: 06-27-2023 take 1 tablet by mouth once daily rosuvastatin (Crestor) 5 MG tablet Take 5 mg by mouth Daily 06/27/2023 Active Start: 05-31-2023 End: 08-02-2023 take 1 tablet by mouth every week Rosuvastatin 5 mg tablet Discontinued 5 MG PO August 02, 2023 1:00am August 02, 2023 2:10pm FreeTextSi tablet Orally 2 days per week; Note: Source Status: Not-TakingundefinedPRN; Refills: 1; Provider: Darling Driver tiZANidine 4 mg oral capsule (20 sources) Central alpha-2 Adrenergic Agonist Start: 08-29-2022 End: 11-03-2024 take 1 tablet by mouth once daily at bedtime Tizanidine (Zanaflex) 4 mg tablet Discontinued 4 MG PO Daily at bedtime August 02, 2023 1:00am December 03, 2023 10:58am FreeTextSi tablet as needed Orally at bedtime; Note: Source Status: Taking; Provider: Satish Rogers Start: 04-17-2022 End: 12-29-2024 take 1 capsule by mouth twice daily tiZANidine (Zanaflex) 4 MG capsule Indications: Cervical stenosis of spinal canal tizanidine 4 mg capsule take 1 capsule by mouth twice a day if needed for MUSCLE SPASTICITY 60 capsule 11 12/29/2024 Active Start: 04-06-2022 End: 08-02-2023 take 2 tablets by mouth at bedtime Tizanidine 4 mg tablet Discontinued 8 MG PO Bedtime April 06, 2022 12:00am August 02, 2023 1:50pm Start: 04-06-2022 End: 08-02-2023 take 8 mg [...] 01-Nov-2021 Active take 1 capsule by mo [facility] once daily at bedtime tiZANidine (Zanaflex) 4 mg capsule Take 1 capsule (4 mg) by mouth once daily at bedtime. Active Comment on above: Take 4 mg by mouth a t bedtime as needed. Completed/Discontinued Medications Medication Drug Class(es) Dates Sig [...] / codeine phosphate 30 mg oral tablet (20 sources) Opioid Agonist Start: 05-07-2023 End: 08-02-2023 take 1 tablet by mouth twice daily as needed for pain Acetaminophen-Code ine 300-30 mg tablet Discontinued 1 TAB PO Twice daily as needed for Pain May 07, 2023 1:00am August 02, 2023 1:44pm acetaZOLAMIDE 250 mg oral tablet (20 sources) [...] (Therapy completed) take 1 tablet by myles every twelve hours acetaZOLAMIDE 125 MG 1 tablet Orally Twice a day Active Comment on above: take 1 tablet by myles th every morning and AFTERNOON and 2 at bedtime as directed [id number] 200 actuat albuterol 0.09 mg/actuat metered dose inhaler (20 sources) beta2-Adrenergic Agonist Start: 09-20-2024 End: 10-06-2024 Albuterol Sulfate 90 mcg/actuation HFA aerosol inhaler Discontinued 1 INH INHALATION Every 4 hours as needed for shortness of breath September 20, 2024 12:00am October 06, 2024 2:05pm Start: 04-10-2024 take 2 puff(s) by in [...] Refills: 1; Provider: Darling Driver Start: 07-02-2023 End: 04-10-2024 take 2 puff(s) by inhalation every four hours albuterol 90 mcg/actuation inhaler Inhale 2 puffs every 4 hours if needed. 07/02/2023 04/10/2024 Discontinued (Therapy completed) Start: 07-02-2023 take 2 puff(s) by in [...] oral tablet (20 sources) Benzodiazepine Start: 01-31-2024 End: 04-01-2024 take 1 tablet by mouth once daily Alprazolam (Xanax) 0.25 mg tablet Discontinued 0.25 MG PO Daily January 31, 2024 12:00am April 01, 2024 11:01am Start: 09-12-2021 take 1 tablet by myles th once daily as needed ALPRAZolam (XANAX) 0.25 mg tablet Take 0.25 mg by mouth once daily as needed. 0 09/12/2021 Active take 1 tablet by myles th every twelve hours ALPRAZolam 0.25 MG 1 tablet Orally Twice a day prn Active Comment on above: Take 0.25 mg by mout h once daily as needed. amLODIPine 10 mg oral tablet (20 sources) Dihydropyridine Calcium Channel [place] Start: 02-01-20 End: 09-30-19 take 1 tablet by mouth once daily Amlodipine 10 mg tablet Discontinued 10 MG PO Daily 90 April 01, 2024 11:02am September 29, 2024 3:11pm Start: 11-29-2023 End: 02-01-2024 take 1 tablet [...] tablet Discontinued 10 MG PO Daily September 05, 2023 12:00am November 29, 2023 12:15pm Start: 03-15-2023 End: 09-05-2023 take 1 tablet by mouth once daily Amlodipine 5 mg tablet Discontinued 5 MG PO Daily August 02, 2023 1:00am September 05, 2023 2:21pm FreeTextSi tablet Orally Once a day; Note: Source Status: Continue; Provider: Darling Driver amoxicillin 875 mg / clavulanate 125 mg oral tablet (20 sources) Penicillin-class Antibacterial Start: 09-20-2024 End: 10-06-2024 take 1 tablet by mouth twice daily Amoxicillin-Pot Clavulanate 875-125 mg tablet Discontinued 1 TAB PO Twice daily September 20, 2024 12:00am October 06, 2024 2:05pm Start: 02-26-2023 End: 05-07-2023 take 1 tablet by mouth twice daily Amoxicillin-Pot Clavulanate 875-125 mg tablet Discontinued 1 TAB PO Twice daily February 26, 2023 12:00am May 07, 2023 9:23am [id number] Aio-Ppwe-Swc-Asb-C (7 sources) Osmotic Laxative, Vitamin C Start: 10-10-2024 End: 10-24-2024 [id number] Azx-Siyg-Bop-Asb-C (Plenvu) 140-9-5.2 gram powder in packet, sequential Discontinued 0 PO .COMPLEX 3 October 10, 2024 12:00am October 24, 2024 11:48am PO Start: 10-10-2024 [id number] Cantrell m-Roel-Krb-Asb-C (Plenvu) 140-9-5.2 gram powder in packet, sequential Active 0 PO .COMPLEX 3 October 10, 2024 12:00am PO atorvastatin 10 mg oral tablet (20 sources) [...] Azole Antifungal, Corticosteroid Start: 03-08-2023 End: 08-02-2023 Clotrimazole-Betameth asone 1-0.05 % cream Discontinued 1 APPLIC TOPICAL Twice daily August 02, 2023 1:00am August 02, 2023 1:47pm FreeTextSi application Externally Twice a day; Note: Source Status: Not-TakingundefinedPR N; Refills: 1; Qty: 45 grams; Provider: Darling Driver onabotulinumtoxina 200 unt injection (16 sources) Acetylcholine Release Inhibitor Start: 07-20-2023 End: 01-08-2025 Botox 200u vial IJ Soln 200 units injection Indications: Spasmodic Torticollis Inject 400 units into neck muscles every 90 days 2 each 3 07/20/2023 01/08/2025 Discontinued bupivacaine hydrochloride 5 mg/ml injectable solution (12 sources) Amide Local Anesthetic Start: 12-30-2024 End: 12-24-2024 bupivacaine (Marcaine) 0.5 % injection 5 mg Start: 12-30-2024 End: 12-24-2024 5 mg, Injection, Once, On 12/30/24 at 1615, For 1 dose Start: 11-19-2024 End: 11-12-2024 bupivacaine (Marcaine) 0.5 % injection 5 mg Start: 11-19-2024 End: 11-12-2024 5 mg, Injection, Once, On 11/19/24 at 1315, For 1 dose Start: 09-24-2024 End: 09-11-2024 bupivacaine (Marcaine) 0.5 % injection 5 mg Start: 09-24-2024 End: 09-11-2024 5 mg (1 mL), Injection, Once , On Sun09/24/24 at 1045, For 1 dose Start: 08-05-2024 End: 07-31-2024 bupivacaine (Marcaine) 0.5 % injection 5 mg Start: 08-05-2024 End: 07-31-2024 5 mg (1 mL), Injection, Once , On Sun08/05/24 at 1545, For 1 dose Start: 07-03-2024 End: 07-02-2024 bupivacaine (Marcaine) 0.5 % injection 5 mg Start: 07-03-2024 End: 07-02-2024 5 mg (1 mL), Injection, Once , On Sun07/03/24 at 1045, For 1 dose Start: 05-22-2024 End: 05-21-2024 bupivacaine (Marcaine) 0.5 % injection 5 mg Start: 05-22-2024 End: 05-21-2024 5 mg (1 mL), Injection, Once , On Sun05/22/24 at 1330, For 1 dose 12 hr buPROPion hydrochloride 150 mg extended release oral tablet (10 sources) Aminoketone Start: 02-28-2019 End: 10-17-2022 take 1 tablet by mouth twice daily buPROPion SR (WELLBUTRIN SR) 150 mg 12 hr tablet Take 1 tablet by mouth twice daily. 60 tablet 2 02/28/2019 10/17/2022 Discontinued Comment on above: Take 1 tablet by myles twice daily. citalopram 10 mg oral tablet (20 sources) Serotonin Reuptake Inhibitor Start: 12-03-2023 End: 09-29-2024 take 1 tablet by mouth once daily Citalopram (Celexa) 10 mg tablet Discontinued 10 MG PO Daily 90 April 01, 2024 11:02am September 29, 2024 3:11pm Start: 12-26-2021 End: 12-03-2023 take 1 tablet [...] Disc ontinued 20 MG PO Daily December 10, 2017 12:00am April 29, 2018 3:12pm Start: 12-10-2017 End: 04-29-2018 take 20 mg by mouth once daily Citalopram Discontinued 20 MG PO Daily December 10, 2017 12:00am April 29, 2018 3:12pm take 0.5 tablet by m outh once daily citalopram (CeleXA) 20 mg tablet Take 0.5 tablets (10 mg) by mouth once daily. Active Comment on above: Take 40 mg by mouth once daily. dexamethasone phosphate 4 mg/ml injectable solution (20 sources) Corticosteroid Start: 12-30-2024 End: 12-24-2024 dexAMETHasone sod phos (Decadron) injection 4 mg Start: 12-30-2024 End: 12-24-2024 4 mg (1 mL), Injection, Once , On Sun12/30/24 at 1615, For 1 dose Start: 11-19-2024 End: 11-12-2024 dexAMETHasone sod phos (Deca dron) injection 4 mg Start: 11-19-2024 End: 11-12-2024 4 mg (1 mL), Injection, Once , On Sun11/19/24 at 1315, For 1 dose Start: 09-24-2024 End: 09-11-2024 dexAMETHasone sod phos (Deca dron) injection 4 mg Start: 09-24-2024 End: 09-11-2024 4 mg (1 mL), Injection, Once , On Sun09/24/24 at 1045, For 1 dose Start: 08-05-2024 End: 07-31-2024 dexAMETHasone sod phos (Deca dron) injection 4 mg Start: 08-05-2024 End: 07-31-2024 4 mg (1 mL), Injection, Once , On Sun08/05/24 at 1545, For 1 dose Start: 07-03-2024 End: 07-02-2024 dexAMETHasone sod phos (Deca dron) injection 4 mg Start: 07-03-2024 End: 07-02-2024 4 mg (1 mL), Injection, Once , On Sun07/03/24 at 1045, For 1 dose Start: 05-22-2024 End: 05-21-2024 dexAMETHasone (Decadron) injection 4 mg Start: 05-22-2024 End: 05-21-2024 inject 4 mg by intramuscular injection once 4 mg, Intramuscular, Once, On Sun05/22/24 at 1330, For 1 dose Start: 04-09-2024 End: 04-10-2024 6 mg, intravenous, Once, On Sun04/09/24 at 2215, For 1 dose Start: 12-03-2023 End: 12-29-2024 dexAMETHasone (Decadron) 2 M G tablet Indications: Cervical stenosis of spinal canal 2mg 3 pills po X3 days,2 pills po daily X3 days , then 1 pill po daily X3 days then stop 9 days 18 pills 18 tablet 1 12/29/2024 Active Start: 12-03-2023 Dexamethasone Active MG PO December 03, 2023 12:00am Start: 06-14-2023 dexAMETHasone (Decadron) 2 MG tablet Indications: Cervical radiculopathy , Cervical stenosis of spinal canal , Occipital neuralgia of left side 2mg 3 pills po X3 days,2 pills po daily X3 days , then 1 pill po daily X3 days then stop 9 days 18 pills 18 tablet 0 06/14/2023 Active DULoxetine 20 mg delayed release oral capsule (4 sources) Serotonin and Norepinephrine Reuptake Inhibitor take 1 capsule by mouth every twelve hours Cymbalta 20 MG 1 capsule Orally Twice a day Not-Taking 1 ml evolocumab 140 mg/ml auto-injector (1 source) PCSK9 Inhibitor Start: End: inject 140 mg by subcutaneous injection every other week Evolocumab (Repatha Sureclick) 140 mg/mL pen injector Discontinued 140 MG SUBCUT EVERY 2 WEEKS October 27, 2024 12:00am November 03, 2024 9:56am Evolocumab (Repatha Sureclick) 140 mg/mL pen injector (3 sources) Start: End: inject 140 mg by subcutaneous injection every other week Evolocumab (Repatha Sureclick) 140 mg/mL pen injector Discontinued 140 MG SUBCUT EVERY 2 WEEKS October 27, 2024 12:00am November 03, 2024 9:56am ezetimibe 10 mg oral tablet (20 sources) Dietary Cholesterol Absorption Inhibitor Start: 024 End: take 1 tablet by mouth once daily Ezetimibe 10 mg tablet Discontinued 0 .ROUTE .COMPLEX November 05, 2023 10:42am April 28, 2024 10:44am take 1 tablet by mouth once daily Start: 09-05-2023 End: 09-05-2023 Ezetimibe Discontinued MG PO September 05, 2023 12:00am September 05, 2023 1:34pm Start: 06-08-2023 End: 10-06-2024 take 1 tablet by mouth once daily ezetimibe (Zetia) 10 MG tablet Take 10 mg by mouth Daily 06/08/2023 Active Start: 05-15-2023 End: 08-02-2023 take 1 tablet by mouth every week Ezetimibe 10 mg tablet Discontinued MG PO August 02, 2023 1:00am [...] a day; Note: Source Status: Not-TakingundefinedPRN; Provider: Darling Camara ( ) Start: 04-16-2023 [...] 02/27/2019 10/17/2022 Discontinued take 1 capsule by [facility] every twenty-four hours Gabapentin 100 MG 1 capsule Orally Once a day Not-Taking/PRN Comment on above: Take 1 capsule by [facility] three times daily for 30 days. gadoterate meglumine (Dotarem) 0.5 mmol/mL contrast injection 30 mL (1 source) Start: 12-13-19 End: 12-13-19 inject 30 mL intravenously once 30 mL, intravenous, Once in imaging, Starting on [facility] 12/13/23 at 0817, For 1 dose, Administer undiluted as rapid I.V. bolus injection ibuprofen 800 mg oral tablet (20 sources) Nonsteroidal Anti-inflammatory Drug Start: 08-02-19 End: 10-07-19 take 1 tablet by mouth three times daily as needed for pain Ibuprofen 800 mg tablet Discontinued 800 MG PO Three times daily as needed for pain September 05, 2023 1:35pm October 06, 2024 2:06pm FreeTextSi tablet with food or milk as needed Orally Three times a day; Note: Source Status: TakingPRN; Provider: Darling Camara ( ) Start: 04-17-2022 End: 07-17-2022 take 1 tablet by mouth every eight hours as needed for pain Ibuprofen 600 mg tablet Discontinued 600 MG PO Q8H as needed for pain April 17, 2022 12:00am July 17, 2022 9:01am take 1 tablet by [facility] three times daily at mealtime as needed Ibuprofen 800 MG 1 tablet with food or milk as needed Orally Three times a day PRN Active indomethacin 75 mg extended release oral capsule (20 sources) Nonsteroidal Anti-inflammatory Drug Start: 08-02-2023 End: 08-02-2023 take 1 capsule by mouth once daily at mealtime Indomethacin 75 mg capsule, extended release Discontinued 75 MG PO Daily August 02, 2023 1:00am August 02, 2023 1:48pm FreeTextSi capsule with food Orally Once a day; Note: Source Status: Not-TakingundefinedPRNprn; Provider: Darling Camara ( ) Start: 07-17-2022 End: 11-02-2023 indomethacin (INDOCIN) 25 mg capsule Indomethacin Active 25 MG PO Daily July 17, 2022 1:00am 07/17/2022 11/02/2023 Discontinued (Discontinued by Patient) Start: 07-17-2022 End: 11-02-2023 take 1 capsule by mouth once daily Indomethacin 25 mg Capsule Discontinued 25 MG PO Daily July 17, 2022 1:00am August 02, 2023 1:48pm take 1 capsule by [facility] once daily at mealtime indomethacin SR (Indocin SR) 75 MG ER capsule indomethacin ER 75 mg capsule,extended release take 1 capsule by mouth once daily with food 0 Active take 1 capsule by [facility] every twenty-four hours Indomethacin ER 75 MG 1 capsule with food Orally Once a day prn Active Ketorolac (20 sources) Nonsteroidal Anti-inflammatory Drug, Cyclooxygenase Inhibitor Start: 01-27-2015 Toradol per 15 mg 12 Jan, 2015 2 mL lisinopril 10 mg oral tablet (20 sources) Angiotensin Converting Enzyme Inhibitor Start: 10-18-2023 End: 09-29-2024 take 1 tablet by mouth once daily Lisinopril 10 mg tablet Discontinued 10 MG PO Daily 90 90 April 01, 2024 11:02am September 29, 2024 3:11pm Start: 09-05-2023 End: 10-18-2023 take 1 tablet by mouth once daily lisinopril 5 MG tablet Take 5 mg by mouth Daily 09/05/2023 Active take 2 tablets by [facility] once daily lisinopril 5 mg tablet Take 2 tablets (10 mg) by mouth once daily. Active meclizine hydrochloride 25 mg oral tablet (20 sources) Antiemetic Start: 04-29-2018 End: 04-06-2022 take 1 tablet by mouth three times daily as needed for dizziness Meclizine 25 mg tablet Discontinued 25 MG PO Three times daily as needed for dizziness April 29, 2018 1:00am April 06, 2022 4:26pm methocarbamol 750 mg oral tablet (20 sources) Muscle Relaxant Start: 05-21-2024 End: 01-08-2025 methocarbamol (Robaxin) 750 MG tablet Indications: Cervical paraspinal muscle spasm Take 1 tablet (750 mg) by mouth in the morning and 1 tablet (750 mg) at noon and 1 tablet (750 mg) in the evening and 1 tablet (750 mg) before bedtime. 120 tablet 3 05/21/2024 01/08/2025 Discontinued Start: 12-03-2023 End: 01-08-2025 methocarbamol (Robaxin) 500 MG tablet 12/03/2023 01/08/2025 Discontinued Start: 12-03-2023 End: 12-03-2023 Methocarbamol Discontinued M G PO December 03, 2023 12:00am December 03, 2023 10:59am montelukast 10 mg oral tablet (20 sources) [...] 2018 3:12pm administer with food or milk 24 hr nicotine 0.875 mg/hr transdermal system (12 sources) Cholinergic Nicotinic Agonist Start: 08-14-2023 End: 01-08-2025 apply 1 dose transdermal route every twenty-four [...] use at treatment onset 46 patch 08/14/2023 01/08/2025 Discontinued olmesartan medoxomil 20 mg oral tablet (20 sources) Angiotensin 2 Receptor Clara Start: 05-07-2023 End: 08-02-2023 Olmesartan 20 mg tablet Discontinued MG May 07, 2023 1:00am August 02, 2023 1:50pm Start: 05-07-2023 End: 08-02-2023 Olmesartan Discontinued MG T ABLET May 07, 2023 1:00am August 02, 2023 1:50pm ondansetron 4 mg disintegrating oral tablet (10 sources) Serotonin-3 Receptor Antagonist Start: 10-06-2024 End: 10-24-2024 take 1 tablet by mouth every eight hours as needed for nausea and vomiting Ondansetron 4 mg tablet,disintegrating Discontinued 4 MG PO Every 8 hours as needed for nausea and vomiting 9 3 October 06, 2024 12:00am October 24, 2024 11:48am Start: 04-09-2024 take 1 tablet by myles th every eight hours as needed ondansetron (Zofran) tablet 4 mg oxygen (O2) therapy (1 source) Start: 04-09-2024 End: 04-09-2024 inhalation, Continuous - Inhalation, First dose on Sun04/09/24 at 1715, Recovery (only), Device: Nasal Cannula, Rate in liters per minute: Other, Custom Value: 1-6 LPM, Keep O2 Sat Above: 92% pravastatin sodium 40 mg oral tablet (20 sources) HMG-CoA Reductase Inhibitor Start: 11-05-2023 End: 10-06-2024 take 1 tablet by mouth once daily Pravastatin 40 mg tablet Discontinued 0 .ROUTE .COMPLEX 90 August 27, 2024 4:02pm October 06, 2024 2:06pm take 1 tablet by mouth once daily Start: 07-06-2023 End: 11-05-2023 take 1 tablet by mouth at bedtime pravastatin (Pravachol) 40 MG tablet Take 40 mg by mouth at bedtime 07/06/2023 Active Start: 05-15-2023 take 1 tablet by myles th every twenty-four hours Pravastatin Sodium 40 MG 1 tablet Orally Once a day for 90 days Apr, Active predniSONE 10 mg oral tablet (20 sources) Start: 03-21-2023 End: 05-07-2023 Prednisone 10 mg tablet Discontinued 60 MG PO Daily March 21, 2023 12:00am May 07, 2023 9:24am administer with food or milk Start: 03-21-2023 End: 05-07-2023 take 60 mg by mouth once daily at mealtime Prednisone Discontinued 60 MG PO Daily March 21, 2023 12:00am May 07, 2023 9:24am administer with food or milk Start: 04-06-2022 End: 07-17-2022 take 2 tablets by mouth once daily at mealtime Prednisone 20 mg tablet Discontinued 40 MG PO Daily April 06, 2022 12:00am July 17, 2022 9:01am administer with food or milk Start: 04-06-2022 End: 07-17-2022 take 40 mg by mouth once daily at mealtime Prednisone Discontinued 40 MG PO Daily April 06, 2022 12:00am July 17, 2022 9:01am administer with food or milk pregabalin 50 mg oral capsule (20 sources) Start: 06-30-2024 End: 01-08-2025 take 1 capsule by mouth in the morning pregabalin (Lyrica) 50 MG capsule Take 50 mg by mouth in the morning and 50 mg in the evening. 06/30/2024 01/08/2025 Discontinued Start: 06-30-2024 End: 07-30-2024 take 1 capsule by mouth twice daily pregabalin (Lyrica) 50 mg capsule Indications: Status post cervical spinal fusion Take 1 capsule (50 mg) by mouth 2 times a day. 60 capsule 06/30/2024 Active promethazine hydrochloride 25 mg oral tablet (20 sources) Phenothiazine Start: 04-29-2018 End: 04-06-2022 take 1 tablet by mouth every six hours as needed for nausea Promethazine 25 mg Tablet Discontinued 25 MG PO Q6H as needed for Nausea September 08, 2021 12:00am April 06, 2022 [...] as needed Orally Twice a day Not-Taking terbinafine hydrochloride 10 mg/ml topical cream (20 sources) Allylamine Antifungal Start: 12-03-19 End: 09-21-19 Terbinafine Hcl 1 % cream Discontinued APPLIC TOPICAL December 03, 2023 12:00am September 20, 2024 11:05am Start: 12-03-2023 Terbinafine Hc l Active APPLIC TOPICAL December 03, 2023 12:00am Start: 11-28-2023 terbinafine (L amISIL AT) 1 % cream Indications: Tinea manuum Apply to the affected area on the hand, bid, 30 day supply 42 g 1 11/28/2023 Active topiramate 100 mg oral tablet (1 source) take 1 tablet by myles th every twenty-four hours Topamax 100 MG 1 [...] Take 250 mg by mouth once daily. vortioxetine 5 mg oral tablet (4 sources) Start: 09-12-2021 End: 11-03-2024 take 1 tablet by mouth every twenty-four hours vortioxetine (TRINTELLIX) 5 mg tablet Take by mouth every 24 hours. 09/12/2021 11/03/2024 Discontinued Start: 09-12-2021 take 1 tablet by myles th every twenty-four hours Trintellix 5 MG 1 tablet Orally Once a day for 30 day(s) Samples Aug, Active zonisamide 25 mg oral capsule (9 sources) Anti-epileptic Agent Start: 10-18-2022 End: 11-02-2023 zonisamide (ZONEGRAN) 25 mg capsule take 1 capsule by mouth at bedtime for 1 week then INCREASE to 1 ... (REFER TO PRESCRIPTION NOTES). 10/18/2022 11/02/2023 Discontinued (Discontinued by Patient) NEGATED: Highlighted row has not occurred!citalopr am (CeleXA) 20 mg Tablet Directions: 1 tablet oral daily (1 source) take 1 tablet by mouth once daily citalopram (CeleXA) 20 mg Tablet Directions: 1 tablet oral daily NEGATED: Highlighted row has not occurred!hydrOXYz ine HCl 25 mg Tablet Directions: 1 tablet oral daily PRN pain (1 source) take 1 tablet by mouth once daily as needed for pain hydrOXYzine HCl 25 mg Tablet Directions: 1 tablet oral daily PRN pain NEGATED: Highlighted row has not occurred!ibuprofe n 600 mg oral tablet (1 source) Nonsteroidal Anti-inflammatory Drug take 1 tablet by mouth twice daily ibuprofen 600 mg Tablet, Ordered By: Lima Joseph MD Directions: 1 tablet Oral twice a day NEGATED: Highlighted row has not occurred!indometh acin 25 mg oral capsule (1 source) Nonsteroidal Anti-inflammatory Drug take 1 capsule by mouth once daily indomethacin 25 mg Capsule, Ordered By: Lima Joseph MD Directions: 1 capsule Oral daily NEGATED: Highlighted row has not occurred!mirtazap ine 15 mg oral tablet (1 source) take 1 tablet by mouth once daily at bedtime mirtazapine 15 mg Tablet, Ordered By: Lima Joseph MD Directions: 1 tablet oral daily at bedtime NEGATED: Highlighted row has not occurred!monteluk ast 10 mg oral tablet (1 source) Leukotriene Receptor Antagonist take 1 tablet by mouth once daily montelukast 10 mg Tablet, Ordered By: Lima Joseph MD Directions: 1 tablet Oral daily Problems Active Problems Problem Classification Problem Date Documented Da te Episodic/Chronic Abdominal pain (20 sources) Abdominal pain; Translations: [Unspecified abdominal pain] Onset: 5 10-06-2024 Episodic Allergic reactions (20 sources) Eczema; Translations: [Dermatitis, unspecified] Episodic Anxiety disorders (20 sources) Anxiety; Translations: [Anxiety state, unspecified] Onset: 1 Resolved: 2 Chronic Cancer of head and neck (20 sources) Squamous cell carcinoma of head and neck; 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 of head, face and neck] Onset: 2 Chronic Cancer; other and unspecified primary (3 sources) History of squamous cell carcinoma; Translations: [Personal history of malignant neoplasm of other sites] Episodic Cardiac dysrhythmias (20 sources) Cardiac arrhythmia; Translations: [Cardiac arrhythmia, unspecified] Onset: 4 Chronic Cataract (20 sources) Age-related nuclear cataract of right eye; Translations: [Age-related nuclear cataract, right eye] Onset: 3 12-10-2022 Chronic Conduction disorders (20 sources) First degree atrioventricular block; Translations: [Atrioventricular block, first degree] Onset: 4 08-02-2023 Chronic Coronary atherosclerosis and other heart disease (19 sources) Coronary arteriosclerosis; Translations: [Atherosclerotic heart disease of [place] coronary artery without angina pectoris] Onset: 4 02-26-2024 Chronic Disorders of lipid metabolism (20 sources) Hyperlipidemia; Translations: [Hyperlipidemia, unspecified] Onset: 2 Resolved: 2 Chronic Esophageal disorders (2 sources) Gastroesophageal reflux disease; Translations: [Gastro-esophageal reflux disease without esophagitis] 01-12-2025 Chronic Essential hypertension (20 sources) Essential hypertension; Translations: [Essential (primary) hypertension] Onset: 3 Chronic Fluid and electrolyte disorders (9 sources) Dehydration; Translations: [Dehydration] 10-06-2024 Episodic Glaucoma (18 sources) Preglaucoma, unspecified, right eye; Translations: [Preglaucoma, unspecified] Onset: 3 12-29-2022 Chronic Headache; including migraine (20 sources) Migraine; Translations: [Migraine, unspecified, not intractable, without status migrainosus] Onset: 3 Chronic Headache; including migraine (20 sources) Headache; Translations: [Headache] Episodic Lymphadenitis (1 source) Enlarged lymph nodes, unspecified Episodic Malignant neoplasm without specification of site (20 sources) Primary malignant neoplasm; Translations: [Malignant (primary) neoplasm, unspecified] Onset: 9 12-10-2022 Chronic Mood disorders (3 sources) Depressive disorder; Translations: [Depressive disorder, not elsewhere classified] Chronic Osteoarthritis (20 sources) Arthritis; Translations: [Unspecified osteoarthritis, unspecified site] Onset: 4 08-02-2023 Chronic Osteoporosis (20 sources) Senile osteoporosis; Translations: [Age-related osteoporosis without current pathological fracture] Onset: 4 02-28-2024 Chronic Other and unspecified benign neoplasm (2 sources) Acoustic neuroma; Translations: [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 Other and unspecified benign neoplasm (2 sources) Melanocytic nevus of trunk; Translations: [Melanocytic nevi of trunk] 01-08-2025 Episodic Other circulatory disease (1 source) Presence of other vascular implants and grafts Chronic Other circulatory disease (4 sources) Elevated blood-pressure reading, without diagnosis of hypertension Onset: 2 Resolved: 2 Episodic Other circulatory disease (15 sources) Elevated blood pressure; Translations: [Elevated blood-pressure reading, without diagnosis of hypertension] Episodic Other circulatory disease (1 source) Other specified symptoms and signs involving the circulatory and respiratory systems Episodic Other circulatory disease (2 sources) Spider nevus; Translations: [Nevus, non-neoplastic] 01-08-2025 Episodic Other connective tissue disease (3 sources) History of cervical spine fusion; Translations: [Arthrodesis status] 04-30-2024 Episodic Other connective tissue disease (1 source) Muscle spasm of cervical muscle of neck; Translations: [Other muscle spasm] 04-30-2024 Episodic Other ear and sense organ disorders (16 sources) Otalgia, left ear; Translations: [Left ear pain] Episodic Other ear and sense organ disorders (11 sources) Bilateral tinnitus; Translations: [Tinnitus, bilateral] Episodic Other ear and sense organ disorders (1 source) Tinnitus, bilateral Episodic Other gastrointestinal disorders (5 sources) Altered bowel function; Translations: [Change in bowel habit] 11-04-2024 Episodic Other gastrointestinal disorders (5 sources) Dysphagia; Translations: [Dysphagia, unspecified] 11-04-2024 Episodic Other gastrointestinal disorders (5 sources) Diarrhea; Translations: [Diarrhea, unspecified] 11-04-2024 Episodic Other gastrointestinal disorders (6 sources) Change in bowel habit; Translations: [Other symptoms involving digestive system] 10-10-2024 Episodic Other gastrointestinal disorders (7 sources) Diarrhea, unspecified; Translations: [Diarrhea] Onset: 5 10-10-2024 Episodic Other gastrointestinal disorders (6 sources) Dysphagia, unspecified; Translations: [Dysphagia, unspecified] 10-10-2024 Episodic Other hereditary and degenerative nervous system conditions (18 sources) Isolated cervical dystonia; Translations: [Spasmodic torticollis] Onset: 4 07-03-2023 Chronic Other infections; including parasitic (19 sources) Personal history of other infectious and [...] Translations: [Other specified disorders of brain] Onset: 4 08-02-2023 Chronic Other nervous system disorders (5 sources) Disorder of brain, unspecified Onset: 2 Resolved: 2 Chronic Other nervous system disorders (2 sources) Raised intracranial pressure; Translations: [Benign intracranial hypertension] Chronic Other nervous system disorders (1 source) Benign intracranial hypertension Chronic Other nervous system disorders (1 source) Normal pressure hydrocephalus; Translations: [(Idiopathic) normal pressure hydrocephalus] Chronic Other nervous system disorders (1 source) (Idiopathic) normal pressure hydrocephalus; Translations: [NPH (normal pressure hydrocephalus) (HCC)] Onset: 3 Chronic Other nervous system disorders (18 sources) Brachial plexus disorder; Translations: [Brachial plexus disorders] Onset: 3 11-23-2022 Chronic Other nervous system disorders (18 sources) Ulnar neuropathy; Translations: [Lesion of ulnar nerve, unspecified upper limb] Onset: 3 12-29-2022 Chronic Other nervous system disorders (1 source) Lesion of brainstem; Translations: [Disorder of brain, unspecified] 10-05-2023 Chronic Other nervous system disorders (4 sources) Other specified disorders of brain; Translations: [Other conditions of brain] 10-29-2023 Chronic Other nervous system disorders (16 sources) Central pontine myelinolysis; 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] Onset: 4 08-29-2023 Chronic Other nervous system disorders (20 sources) Disorder of nerve root and/or plexus; Translations: [Other nerve root and plexus disorders] Onset: 4 05-22-2024 Chronic Other nervous system disorders (6 sources) Finding of sensation of upper limb; Translations: [Paresthesia of skin] Episodic Other nervous system disorders (2 sources) Anesthesia of skin Onset: 2 Resolved: 2 Episodic Other nervous system disorders (1 source) Other disturbances of skin sensation Episodic Other nervous system disorders (6 sources) Other abnormalities of gait and mobility; Translations: [Other symptoms involving nervous and musculoskeletal systems] Episodic Other nervous system disorders (1 source) Acute postoperative pain; Translations: [Other acute postprocedural pain] 04-30-2024 Episodic Other non-epithelial cancer of skin (20 sources) Squamous cell carcinoma of skin; Translations: [...] endocrine, metabolic, and immunity disorders] Episodic Other nutritional; endocrine; and metabolic disorders (4 sources) Unexplained weight loss ; Translations: [Abnormal weight loss] 11-04-2024 Episodic Other nutritional; endocrine; and metabolic disorders (3 sources) Abnormal weight loss; Translations: [Loss of weight] 10-10-2024 Episodic Other skin disorders (20 sources) Mass of neck; Translations: [Localized swelling, mass and lump, neck] Episodic Other skin disorders (1 source) Dyshidrosis [pompholyx] Episodic Other skin disorders (1 source) Finding of neck region; Translations: [Localized swelling, mass and lump, neck] 10-06-2021 Episodic Other skin disorders (2 sources) Seborrheic keratosis; Translations: [Other seborrheic keratosis] 01-08-2025 Episodic Other skin disorders (2 sources) Inflamed seborrheic keratosis; Translations: [Inflamed seborrheic keratosis] 01-08-2025 Episodic Other skin disorders (2 sources) Actinic keratosis; Translations: [Actinic keratosis] 01-08-2025 Episodic Other upper respiratory disease (3 sources) Other specified disorders of nose and nasal sinuses Onset: 2 Resolved: 2 Episodic Other upper respiratory disease (4 sources) Nasal sinus problem; Translations: [Other specified disorders of nose and nasal sinuses] Episodic Other upper respiratory infections (13 sources) Sinusitis; Translations: [Chronic sinusitis, unspecified] Onset: 2 Resolved: 2 Chronic Peripheral and visceral atherosclerosis (20 sources) Intermittent claudication; Translations: [Peripheral vascular disease, unspecified] Onset: 4 Chronic Pneumonia (except that caused by tuberculosis or sexually transmitted disease) (10 sources) Pneumonia; Translations: [Pneumonia, unspecified organism] 09-20-2024 Episodic Residual codes; unclassified (1 source) Postprocedural state finding; Translations: [Presence of other specified functional implants] 01-12-2025 Chronic Residual codes; unclassified (2 sources) Insomnia, unspecified Episodic Residual codes; unclassified (13 sources) History of cervical discectomy; Translations: [Other specified postprocedural states] 07-03-2024 Episodic Residual codes; unclassified (4 sources) Other specified postprocedural states; Translations: [Other postprocedural status] 07-03-2024 Episodic Residual codes; unclassified (4 sources) Early satiety; Translations: [Early satiety] 11-04-2024 Episodic Residual codes; unclassified (3 sources) Early satiety; Translations: [Early satiety] 10-10-2024 Episodic Secondary malignancies (3 sources) Metastasis to head and neck lymph node; Translations: [Secondary and unspecified malignant neoplasm of lymph nodes of head, face, and neck] Chronic Secondary malignancies (2 sources) Secondary malignant neoplastic disease; Translations: [Other malignant neoplasm without specification of site] Chronic Secondary malignancies (18 sources) Secondary malignant neoplasm of lymph node; Translations: [Secondary and unspecified malignant neoplasm of lymph node, unspecified] Onset: 3 12-10-2022 Chronic Spondylosis; intervertebral disc disorders; other back problems (20 sources) Cervical spondylosis; Translations: [Spondylosis without myelopathy or radiculopathy, cervical region] Onset: 3 Chronic Substance-related disorders (20 sources) Nicotine dependence with current use; Translations: [Nicotine dependence, unspecified, uncomplicated] Onset: 1 Resolved: 1 Chronic Thyroid disorders (3 sources) Thyroid nodule; 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 Transient cerebral ischemia (20 sources) Transient cerebral ischemia; Translations: [Transient cerebral ischemic attack, unspecified] Chronic Unclassified (9 sources) Patient has spine surgery Onset: 4 01-09-2024 Unclassified (3 sources) History of cervical spine fusion 04-30-2024 Unclassified (2 sources) Post-op Spine Surgery; Translations: [Post-op Spine Surgery] Onset: Viral infection (12 sources) Respiratory syncytial virus infection; Translations: [Other specified viral diseases] Onset: Episodic Past or Other Problems Problem Classification Problem Date Documented Date Episodic/Chronic Blindness and vision defects (19 sources) Unspecified visual disturbance; Translations: [Visual disturbance] [...] caused by tuberculosis or sexually transmitted disease) (16 sources) Myelitis; Translations: [Myelitis, unspecified] Onset: 08-29-2023 08-29-2023 Episodic Headache; including migraine (3 sources) Headache; including migraine Onset: 11-01-2021 Resolved: 01-30-2022 Malaise and fatigue (18 sources) Asthenia; Translations: [Weakness] Onset: 12-29-2022 12-29-2022 Episodic Other and unspecified benign neoplasm (18 sources) Schwannoma; Translations: [Benign neoplasm of peripheral nerves and autonomic nervous system, unspecified] Onset: 12-10-2022 12-10-2022 Episodic Other connective tissue disease (18 sources) Muscle pain; Translations: [Myalgia, unspecified site] Onset: 12-10-2022 12-10-2022 Episodic Other connective tissue disease (18 sources) Pain in left arm; Translations: [Pain in left arm] Onset: 12-29-2022 12-29-2022 Episodic Other connective tissue disease (19 sources) Spasm of cervical paraspinous muscle; Translations: [Other muscle spasm] Onset: 12-29-2022 12-29-2022 Episodic Other connective tissue disease (18 sources) Radicular pain; Translations: [Neuralgia and neuritis, unspecified] Onset: 04-04-2023 04-04-2023 Episodic Other connective tissue disease (2 sources) Arthrodesis status; Translations: [Arthrodesis status] Onset: 04-30-2024 Episodic Other connective tissue disease (2 sources) Other muscle spasm; Translations: [Other muscle spasm] Onset: 04-30-2024 Episodic Other lower respiratory disease (20 sources) Multiple nodules of lung; Translations: [Other nonspecific abnormal finding of lung field] Onset: 10-13-2021 Episodic Other lower respiratory disease (20 sources) Productive cough ; Translations: [Productive cough] Onset: 10-16-2023 10-08-2023 Episodic Other lower respiratory disease (1 source) Shortness of breath; Translations: [Shortness of breath] Onset: 09-20-2024 Episodic Other nervous system disorders (20 sources) [...] 12-10-2022 12-10-2022 Episodic Other nervous system disorders (2 sources) Other acute postprocedural pain; Translations: [Other acute postprocedural pain] Onset: 04-30-2024 Episodic Other non-traumatic joint disorders (20 sources) Pain in left shoulder; Translations: [Pain [...] Resolved: 04-19-2021 Episodic Other upper respiratory infections (20 sources) Acute pharyngitis, unspecified; Translations: [Acute sinusitis] Onset: 10-16-2023 Episodic Otitis media and related conditions (20 sources) Acute transudative otitis media; Translations: [Other acute nonsuppurative otitis media, left ear] Onset: 10-16-2023 02-26-2023 Episodic Residual codes; unclassified (1 source) Other general symptoms and signs Onset: 01-30-2022 Resolved: 01-30-2022 Episodic Residual codes; unclassified (20 sources) Insomnia; Translations: [Insomnia, unspecified] Onset: 12-10-2022 12-10-2022 Episodic Spondylosis; intervertebral disc disorders; other back problems (20 sources) Neck pain; Translations: [Cervicalgia] Onset: 12-05-2021 Resolved: 01-30-2022 Episodic Unclassified (1 source) Pressure in head R51.9 Onset: 12-26-2021 Resolved: 12-26-2021 Unclassified (1 source) Cough R05.9 Unclassified (1 source) Acute cough R05.1 Unclassified (14 sources) Onset: 10-05-2023 Resolved: 10-13-2024 10-05-2023 Results Test Name Value Interpretation Reference Range Facility No Panel Informationon 01-08 [facility] XR CERVICAL SPINE 2-3 VIEWSo n 12-29-2024 XR CERVICAL SPINE 2-3 VIEWS Cervical spine. HISTORY: Cervical fusion 1 year [...] or bone lesion. Bilateral calcification carotid arteries. IMPRESSION: No fracture. Internal fixation C5-C7. Moderate degenerative change cervical spine. ELECTRONICALLY SIGNED BY: Doroteo Matthews MD Normal Not Available X-ray reportOrdered By: Yehuda Pozo on 2024 Study report [facility] Main [address] [address] XRay Report Signed Patient: Jovani Melendez MR#: [id number] : 1960 Acct:[id number] Age/Sex: 64 / M [facility]: [facility] Attending Dr: Griselda Hastings DO Copies to: Griselda Hastings DO~ Ordering Provider: Griselda Hastings DO Date of Service: 11/24/24 XR/XR chest 2V*: B33.8 - Other specified viral diseases Chest 2 views CLINICAL HISTORY: Productive cough sinus drainage COMPARISON: Chest 09/20/2024 FINDINGS: Heart is normal in size. No consolidation pneumothorax pleural effusion or freeair. Lingular scarring. XR/XR chest 2V* IMPRESSION: NO ACUTE CARDIOPULMONARY ABNORMALITY. Impression dictated by: Yung Pozo Jr., Ritesh 2024 4:30 PM Dictation Location: [place] [address] Transcribed By: [facility] 11/24/24 1630 Dictated By: Yung Pozo Jr, DO 11/24/24 1630 Signed By: 11/24/24 1630 [facility] XR chest 2V*on 2024 XR chest 2V* [address] [address] XRay Report Signed Patient: Jovani Melendez MR#: [id number] : 1960 Acct:[id number] Age/Sex: 64 / M ADM Date: 11/24/24 Loc: [facility] Room: Type: [facility] Attending Dr: Griselda Hastings DO Copies to: Griselda Hastings DO Ordering Provider: Griselda Hastings DO Date of Service: 11/24/24 XR/XR chest 2V*: B33.8 - Other specified viral diseases Chest 2 views CLINICAL HISTORY: Productive cough sinus drainage COMPARISON: Chest 09/20/2024 FINDINGS: Heart is normal in size. No consolidation pneumothorax pleural effusion or free air. Lingular scarring. XR/XR chest 2V* IMPRESSION: NO ACUTE CARDIOPULMONARY ABNORMALITY. Impression dictated by: Yung Pozo Jr., Ritesh 2024 4:30 PM Dictation Location: [place] [address] Transcribed By: [facility] 11/24/24 1630 Dictated By: Yung Pozo Jr, DO 11/24/24 1630 Signed By: 11/24/24 1630 Normal [facility] Influenza virus B Ag [Presen ce] in Upper respiratory specimen by Rapid immunoassayon 11-19-2024 FLUBV Ag IA.rapid Ql (Nph) Influenza virus B Ag [Presence] in Upper respiratory specimen by Rapid immunoassay [facility] FLUBV Ag IA.rapid Ql (Nph) Negative [facility] No Panel Informationon 11-19 Influenza Type A (Rapid) Negative [facility] POC SARS CoV-2 Antigen Negative [facility] No Panel InformationOrdered By: Griselda Hastings on 11-19-2024 Quick Strep (POC) [facility] RSV (POC) [facility] CNOVSPon 11-07-2024 CNOVSP Visit (SP) Office ([place]) ----- JOVANI MELENDEZ ([id number]) 1960 M Date Time Provider Department 11/07/24 9:20 AM MEMO COLE During your visit today, we recorded the following information about you: Temperature Pulse Respiration Blood pressure 97.5 degrees 72/minute 16/minute 115/89 Weight Height 79.3 kg 1.706 m Memo Cole MD 11/07/2024 11:09 AM Signed NAME: Jovani Melendez CLINIC NO.: [id number] DATE OF SERVICE: November 07, 2024 ([place]) Some elements in this clinic note that are critical to medical decision making have been carefully reviewed and included from a prior clinic note dated: November 02, 2023 ([place]) Referring Provider: Griselda Hastings, DO Additional Clinicians involved in Jovani Melendez's care: Dr Kimberly Nichole ENT, Dr. Ibarra IN surgery [facility] DIAGNOSIS: Head and neck cancer ASSESSMENT: 63 year old man who underwent selective right [...] 1.8 mm of invasive disease (Stage I, hU3H8T5, HPV+ oropharyngeal SCC).resected T1 N1 base of [...] in plan for intervention to neck. PLAN: [place]bt[place] [facility]oscopy report and [facility] results [place] [facility] [place] and labs in 1 year RTC 1 week after ____- HPI: CASE HISTORY: Reverse Chronological Order 11/03/2024 - CT Neck/Chest: Neck: Primary: Category 1. Expected post-treatment changes in the neck without evidence of recurrent disease in the primary site. Neck: Category 1. No evidence of abnormal lymph nodes. Chest: No CT evidence of new metastatic disease in the chest. Pulmonary nodules measuring up to 3 mm are unchanged. No new or enlarging pulmonary nodules are identified. 10/26/2023 - CT Neck/Chest: Neck: Expected post-treatment changes in the neck without evidence of recurrent disease in the primary site. No evidence of abnormal lymph nodes. Chest: New streaky scarring/discoid atelectasis in the bilateral lower lung mcgrath. Subcentimeter nodular opacities measuring less than 5 mm, stable since 04/08/20. No evidence of intrathoracic metastases. 07/18/2023 - MRI Brain/Neck. Brain: Abnormal increased T2 signal in the naldo, right greater than left, worrisome for low-grade malignancy such as a glioma. Infectious or inflammatory process cannot be excluded, although this seems unlikely given the absence of enhancement. No acute intracranial hemorrhage, infarction, mass effect or midline shift elsewhere in the brain Neck: No acute abnormality. No focal disc herniation, spinal stenosis or impingement upon the cervical cord. Multilevel degenerative changes with mild disc bulging and posterior osteophytic ridging, as described above. Prominent loss of disc height from disc degenerative disease at C5-C6, C6-C7 and T1-T2. Neural foraminal stenosis at multiple levels, severe [...] adenopathy is identified. 10/05/2021 - [place] Brain[place] [facility] There is T2 and T2 flair hyperintense [...] right internal auditory canal. This may represent (more content not included)... Normal [facility] No Panel InformationOrdered By: Nathanael Arango on 11-05-2024 Miscellaneous Pathology Test See comment [facility] Comment on above: See report. Scanned copy available in EMR. Pathology Request for Lab Co rpon 11-05-2024 Pathology Request for Lab Nancy Normal [facility] Comment on above: Order Comment: GI SP ECIMEN Result Comment: See report. Scanned copy available in EMR. PERFORMED BY: [place] [address] PATHOLOGIST RECEIVING DOCK CHECKER EDUARDO HOLLINGSWORTH M.D. Performed By: #### P ATH TO [facility] #### [address] Basophils Auto (Bld) [#/Vol] on 11-03-2024 Basophils (Bld) [#/Vol] Automated basophil count <0.[address] [facility] Basophils (Bld) [#/Vol] 0.06 10*3/uL <0.11 [facility] Basophils/100 WBC Auto (Bld) on 11-03-2024 Basophils/100 WBC (Bld) Automated basophil % [facility] Basophils/100 WBC (Bld) 1.0 % [facility] Blood manual differential co mment interpretation narrativeon 11-03-2024 Manual differential comment [place] (Bld) [Interp] Blood manual differential comment interpretation narrative [facility] Manual differential comment [place] (Bld) [Interp] Auto [facility] CBC W Auto Differential pane l (Bld)on 11-03-2024 Basophils (Bld) [#/Vol] 0.06 10*3/uL [facility] Basophils/100 WBC (Bld) 1 % [facility] Differential cell count method Nom (Bld) Auto [facility] Eosinophils (Bld) [#/Vol] 0.16 10*3/uL [facility] Eosinophils/100 WBC (Bld) 2.7 % [facility] Erythrocyte distribution width (RBC) [Ratio] 14.6 % 11.5 - 15.0 % [facility] Hematocrit (Bld) [Volume fraction] 40 % 39.0 - 51.0 % [facility] Hemoglobin (Bld) [Mass/Vol] 13.6 g/dL 13.0 - 17.0 g/dL [facility] Immature granulocytes (Bld) [#/Vol] [facility] Immature granulocytes/100 WBC (Bld) 0.2 % [facility] Lymphocytes (Bld) [#/Vol] 2.73 10*3/uL [facility] Lymphocytes/100 WBC (Bld) 45.3 % [facility] MCH (RBC) [Entitic mass] 31.9 pg 26.0 - 34.0 pg [facility] MCHC (RBC) [Mass/Vol] 34 g/dL 30.5 - 36.0 g/dL [facility] MCV (RBC) [Entitic vol] 93.9 fL 80.0 - 100.0 fL [facility] Monocytes (Bld) [#/Vol] 0.4 10*3/uL [facility] Monocytes/100 WBC (Bld) 6.6 % [facility] Neutrophils (Bld) [#/Vol] 2.67 10*3/uL [facility] Neutrophils/100 WBC (Bld) 44.2 % [facility] Nucleated RBC (Bld) [#/Vol] [facility] Nucleated RBC/100 WBC (Bld) [Ratio] 0 % /100 WBC [facility] Platelet mean volume (Bld) [Entitic vol] 11 fL 9.0 - 12.7 fL [facility] Platelets (Bld) [#/Vol] 281 10*3/uL [facility] RBC (Bld) [#/Vol] 4.26 10*6/uL 4.20 - 6.00 m/uL [facility] WBC (Bld) [#/Vol] 6.03 10*3/uL [facility] Basophils (Bld) [#/Vol] 0.06 10*3/uL Normal <0.11 [facility] Comment on above: Order Comment: Speci men Type: BLOOD SPECIMEN Ordering Facility: [facility] Address: [address] [place] [address] Performed By: #### 5 7021-8 #### [facility] CLIA [id number] [address] [place] [address] Basophils/100 WBC (Bld) 1.0 % Normal [facility] Comment on above: Order Comment: Speci men Type: BLOOD SPECIMEN Ordering Facility: [facility] Address: [address] [place] [address] Performed By: #### 5 7021-8 #### [facility] CLIA [id number] [address] [place] [address] Differential cell count method Nom (Bld) Auto Normal [facility] Comment on above: Order Comment: Speci men Type: BLOOD SPECIMEN Ordering Facility: [facility] Address: [address] [place] [address] Performed By: #### 5 7021-8 #### [facility] CLIA [id number] [address] [place] [address] Eosinophils (Bld) [#/Vol] 0.16 10*3/uL Normal <0.46 [facility] Comment on above: Order Comment: Speci men Type: BLOOD SPECIMEN Ordering Facility: [facility] Address: [address] [place] [address] Performed By: #### 5 7021-8 #### [facility] CLIA [id number] [address] [place] [address] Eosinophils/100 WBC (Bld) 2.7 % Normal [facility] Comment on above: Order Comment: Speci men Type: BLOOD SPECIMEN Ordering Facility: [facility] Address: [address] [place] [address] Performed By: #### 5 7021-8 #### [facility] CLIA [id number] [address] [place] [address] Erythrocyte distribution width (RBC) [Ratio] 14.6 % Normal 11.5-15.0 [facility] Comment on above: Order Comment: Speci men Type: BLOOD SPECIMEN Ordering Facility: [facility] Address: [address] [place] [address] Performed By: #### 5 7021-8 #### [facility] CLIA [id number] [address] [place] [address] Hematocrit (Bld) [Volume fraction] 40.0 % Normal 39.0-51.0 [facility] Comment on above: Order Comment: Speci men Type: BLOOD SPECIMEN Ordering Facility: [facility] Address: [address] [place] [address] Performed By: #### 5 7021-8 #### [facility] CLIA [id number] [address] [place] [address] Hemoglobin (Bld) [Mass/Vol] 13.6 g/dL Normal 13.0-17.0 [facility] Comment on above: Order Comment: Speci men Type: BLOOD SPECIMEN Ordering Facility: [facility] Address: [address] [place] [address] Performed By: #### 5 7021-8 #### [facility] CLIA [id number] [address] [place] [address] Immature granulocytes (Bld) [#/Vol] 10*3/uL Normal <0.10 [facility] Comment on above: Order Comment: Speci men Type: BLOOD SPECIMEN Ordering Facility: [facility] Address: [address] [place] [address] Performed By: #### 5 7021-8 #### [facility] CLIA [id number] [address] [place] [address] Immature granulocytes/100 WBC (Bld) 0.2 % Normal [facility] Comment on above: Order Comment: Speci men Type: BLOOD SPECIMEN Ordering Facility: [facility] Address: [address] [place] [address] Performed By: #### 5 7021-8 #### [facility] CLIA [id number] [address] [place] [address] Lymphocytes (Bld) [#/Vol] 2.73 10*3/uL Normal 1.00-4.00 [facility] Comment on above: Order Comment: Speci men Type: BLOOD SPECIMEN Ordering Facility: [facility] Address: [address] [place] [address] Performed By: #### 5 7021-8 #### [facility] CLIA [id number] [address] [place] [address] Lymphocytes/100 WBC (Bld) 45.3 % Normal [facility] Comment on above: Order Comment: Speci men Type: BLOOD SPECIMEN Ordering Facility: [facility] Address: [address] [place] [address] Performed By: #### 5 7021-8 #### [facility] CLIA [id number] [address] [place] [address] MCH (RBC) [Entitic mass] 31.9 pg Normal 26.0-34.0 [facility] Comment on above: Order Comment: Speci men Type: BLOOD SPECIMEN Ordering Facility: [facility] Address: [address] [place] [address] Performed By: #### 5 7021-8 #### [facility] CLIA [id number] [address] [place] [address] MCHC (RBC) [Mass/Vol] 34.0 g/dL Normal 30.5-36.0 [facility] Comment on above: Order Comment: Speci men Type: BLOOD SPECIMEN Ordering Facility: [facility] Address: [address] [place] [address] Performed By: #### 5 7021-8 #### [facility] CLIA [id number] [address] [place] [address] MCV (RBC) [Entitic vol] 93.9 fL Normal 80.0-100.0 [facility] Comment on above: Order Comment: Speci men Type: BLOOD SPECIMEN Ordering Facility: [facility] Address: [address] [place] [address] Performed By: #### 5 7021-8 #### [facility] CLIA [id number] [address] [place] [address] Monocytes (Bld) [#/Vol] 0.40 10*3/uL Normal <0.87 [facility] Comment on above: Order Comment: Speci men Type: BLOOD SPECIMEN Ordering Facility: [facility] Address: [address] [place] [address] Performed By: #### 5 7021-8 #### [facility] CLIA [id number] [address] [place] [address] Monocytes/100 WBC (Bld) 6.6 % Normal [facility] Comment on above: Order Comment: Speci men Type: BLOOD SPECIMEN Ordering Facility: [facility] Address: [address] [place] [address] Performed By: #### 5 7021-8 #### [facility] CLIA [id number] [address] [place] [address] Neutrophils (Bld) [#/Vol] 2.67 10*3/uL Normal 1.45-7.50 [facility] Comment on above: Order Comment: Speci men Type: BLOOD SPECIMEN Ordering Facility: [facility] Address: [address] [place] [address] Performed By: #### 5 7021-8 #### [facility] CLIA [id number] [address] [place] [address] Neutrophils/100 WBC (Bld) 44.2 % Normal [facility] Comment on above: Order Comment: Speci men Type: BLOOD SPECIMEN Ordering Facility: [facility] Address: [address] [place] [address] Performed By: #### 5 7021-8 #### [facility] CLIA [id number] [address] [place] [address] Nucleated RBC (Bld) [#/Vol] 10*3/uL Normal <0.01 [facility] Comment on above: Order Comment: Speci men Type: BLOOD SPECIMEN Ordering Facility: [facility] Address: [address] [place] [address] Performed By: #### 5 7021-8 #### [facility] CLIA [id number] [address] [place] [address] Nucleated RBC/100 WBC (Bld) [Ratio] 0.0 /100 WBC Normal [facility] Comment on above: Order Comment: Speci men Type: BLOOD SPECIMEN Ordering Facility: [facility] Address: [address] [place] [address] Performed By: #### 5 7021-8 #### [facility] CLIA [id number] [address] [place] [address] Platelet mean volume (Bld) [Entitic vol] 11.0 fL Normal 9.0-12.7 [facility] Comment on above: Order Comment: Speci men Type: BLOOD SPECIMEN Ordering Facility: [facility] Address: [address] [place] [address] Performed By: #### 5 7021-8 #### [facility] CLIA [id number] [address] [place] [address] Platelets (Bld) [#/Vol] 281 10*3/uL Normal 150-400 [facility] Comment on above: Order Comment: Speci men Type: BLOOD SPECIMEN Ordering Facility: [facility] Address: [address] [place] [address] Performed By: #### 5 7021-8 #### [facility] CLIA [id number] [address] [place] [address] RBC (Bld) [#/Vol] 4.26 10*6/uL Normal 4.20-6.00 [facility] Comment on above: Order Comment: Speci men Type: BLOOD SPECIMEN Ordering Facility: [facility] Address: [address] [place] [address] Performed By: #### 5 7021-8 #### [facility] CLIA [id number] [address] [place] [address] WBC (Bld) [#/Vol] 6.03 10*3/uL Normal 3.70-11.00 [facility] Comment on above: Order Comment: Speci men Type: BLOOD SPECIMEN Ordering Facility: [facility] Address: [address] [place] [address] Performed By: #### 5 7021-8 #### [facility] CLIA [id number] [address] [place] [address] Hyun 11-03-2024 CNPN Telephone (HEMTSA) ----- NORAJOVANI Sheridan ([id number]) 1960 M Date Time Provider Department 11/03/24 [facility]O CO[facility] During your visit today, we recorded the following information about you: Curtis Da Silva RN 11/03/2024 7:50 AM Signed Please sign pended labs for 1 year f/u-will draw with CT today Thank You! 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 - atorvastatin (LIPITOR) 10 mg tablet Take 1 tablet by mouth once daily. - lisinopril (ZESTRIL) 10 mg tablet Take 1 tablet by mouth every afternoon. - HYDROcodone-acetaminophen (NORCO) 5-325 mg per tablet take 1 tablet orally daily NEEDED FOR PAIN MUST LAST 30 DAYS - ezetimibe (ZETIA) 10 mg tablet Take 10 mg by mouth. - clotrimazole-betamethason e (LOTRISONE) cream - clopidogrel (PLAVIX) 75 mg tablet Take 75 mg by mouth. - pravastatin (PRAVACHOL) 40 mg tablet Take 40 mg by mouth. - hydrOXYzine HCl (ATARAX) 25 mg tablet take 1 to 2 tablets by mouth at bedtime if needed - mirtazapine (REMERON) 15 mg tablet Take by mouth daily at bedtime. - montelukast (SINGULAIR) 10 mg tablet Take 10 mg by mouth daily at bedtime. - iv contrast (will be provided with [...] the CT contrast administration guidelines link. - citalopram (CELEXA) 40 mg tablet Take 40 mg by mouth once daily. - Multivitamin capsule Take 1 capsule by mouth once daily. Problem List As Of Date 11/03/2024 Noted Resolved Primary squamous cell carcinoma of head and nec*10/13/2021 Lung nodules [R91.8] 10/13/2021 Glioma of brain (HCC) [C71.9] 10/13/2021 Medications Discontinued During This Encounter Prescriptions - tiZANidine (ZANAFLEX) 4 mg tablet (Discontinued) Take 4 mg by mouth at bedtime as needed. - vortioxetine (TRINTELLIX) 5 mg tablet (Discontinued) Take by mouth every 24 hours. Encounter Status:Closed by MEMO COLE on 11/03/[address] [facility] [address] CHEST W IVCONon CT CHEST W IVCON * * *Final Report* * * DATE OF EXAM: Nov 03 2024 8:41AM [facility] 0539 - CT CHEST W [...] are unremarkable. Localizer images: No additional findings. IMPRESSION: 1. No CT evidence of new [...] any questions regarding this interpretation, please call [phone]. If you are unable to reach us at the number above, please feel free to contact [facility] at [phone]. [id number] Normal [facility] CT Chest W contrast Tristin IMPRESSION: 1. No CT evidence of new [...] any questions regarding this interpretation, please call [phone]. If you are unable to reach us at the number above, please feel free to contact [facility] at [phone]. DIVISION OF RADIOLOGY * * *Final Report* * * DATE OF EXAM: Nov 03 2024 8:41AM [facility] 0539 - CT CHEST W [...] are unremarkable. Localizer images: No additional findings. DIVISION OF RADIOLOGY Provider, [facility] - 11/03/2024 * * *Final Report* * * DATE OF EXAM: Nov 03 2024 8:41AM [facility] 0539 - CT CHEST W [...] are unremarkable. Localizer images: No additional findings. IMPRESSION IMPRESSION: [...] any questions regarding this interpretation, please call [phone]. If you are unable to reach us at the number above, please feel free to contact [facility] at [phone]. [facility] CT NECK SOFT TISSUE W IVCONo n 11-03-2024 CT NECK SOFT TISSUE W IVCON * * *Final Report* * * DATE OF EXAM: Nov 03 2024 8:41AM [facility] 0013 - CT NECK SOFT [...] Nodes: No cervical lymphadenopathy by size criteria. Carotid/Parapharyngeal/Re tropharyngeal Spaces: Mild atherosclerosis of the left carotid [...] of consolidation or mass. Other: Not applicable. IMPRESSION: Primary: Category 1. Expected post-treatment changes in the neck without evidence of recurrent disease in the primary site. Neck: Category 1. No evidence of abnormal lymph nodes. [email or web address] Transcribe Date/Time: Nov 03 2024 8:53A Dictated by: BENJAMIN AL MD This examination was interpreted and the report reviewed and electronically signed by: BENJAMIN AL MD on Nov 03 2024 9:01AM EST Thank you for allowing us to participate in the care of your patient. Should there be any questions regarding this interpretation, please call [phone]. If you are unable to reach us at the number above, please feel free to contact [facility] at [phone]. [id number] Normal [facility] CT Neck W contrast Tristin 05-1 IMPRESSION: Primary: Category 1. Expected post-treatment changes in the neck without evidence of recurrent disease in the primary site. Neck: Category 1. No evidence of abnormal lymph nodes. [email or web address] Transcribe Date/Time: Nov 03 2024 8:53A Dictated by: BENJAMIN AL MD This examination was interpreted and the report reviewed and electronically signed by: BENJAMIN AL MD on Nov 03 2024 9:01AM EST Thank you for allowing us to participate in the care of your patient. Should there be any questions regarding this interpretation, please call [phone]. If you are unable to reach us at the number above, please feel free to contact [facility] at [phone]. DIVISION OF RADIOLOGY * * *Final Report* * * DATE OF EXAM: Nov 03 2024 8:41AM [facility] 0013 - CT NECK SOFT [...] Nodes: No cervical lymphadenopathy by size criteria. Carotid/Parapharyngeal/Re tropharyngeal Spaces: Mild atherosclerosis of the left carotid [...] of consolidation or mass. Other: Not applicable. DIVISION OF RADIOLOGY Provider, [facility] - 11/03/2024 * * *Final Report* * * DATE OF EXAM: Nov 03 2024 8:41AM [facility] 0013 - CT NECK SOFT [...] Nodes: No cervical lymphadenopathy by size criteria. Carotid/Parapharyngeal/Re tropharyngeal Spaces: Mild atherosclerosis of the left carotid [...] evidence of abnormal lymph nodes. [email or web address] Transcribe Date/Time: Nov 03 2024 8:53A Dictated by: BENJAMIN AL MD This examination was interpreted and the report reviewed and electronically signed by: BENJAMIN AL MD on Nov 03 2024 9:01AM EST Thank you for allowing us to participate in the care of your patient. Should there be any questions regarding this interpretation, please call [phone]. If you are unable to reach us at the number above, please feel free to contact [facility]iology at [phone]. [facility] CT Neck W contrast IVOrdered By: Ccf Provider on 11-03-2024 [facility] Eosinophils/100 WBC Auto (Bl d)on 05-19-2025 Eosinophils/100 WBC (Bld) Automated eosinophil % [facility] Eosinophils/100 WBC (Bld) 2.7 % [facility] Erythrocyte distribution wid th Auto (RBC) [Ratio]on 11-03-2024 Erythrocyte distribution width (RBC) [Ratio] Erythrocyte distribution width [Ratio] by Automated count 11.5-15.0 [facility] Erythrocyte distribution width (RBC) [Ratio] 14.6 % 11.5-15.0 [facility] Hematocrit Auto (Bld) [Volum e fraction]on 11-03-2024 Hematocrit (Bld) [Volume fraction] Hematocrit [Volume Fraction] of Blood by Automated count 39.0-51.0 [facility] Hematocrit (Bld) [Volume fraction] 40.0 % 39.0-51.0 [facility] Hemoglobin [Mass/volume] in Bloodon 11-03-2024 Hemoglobin (Bld) [Mass/Vol] Hemoglobin [Mass/volume] in Blood 13.0-17.0 [facility] Hemoglobin (Bld) [Mass/Vol] 13.6 g/dL 13.0-17.0 [facility] Laboratory - Hematology and Cell countson 11-03-2024 Eosinophils (Bld) [#/Vol] 0.16 10*3/uL <0.46 [facility] Immature granulocytes/100 WBC (Bld) 0.2 % [facility] Leukocytes [#/volume] correc mone for nucleated erythrocytes in Blood by Automated counon 11-03-2024 WBC corrected for nucl RBC Auto (Bld) [#/Vol] Leukocytes [#/volume] corrected for nucleated erythrocytes in Blood by Automated coun 70- [facility] WBC corrected for nucl RBC Auto (Bld) [#/Vol] 6.03 k/uL 3.70-11.00 [facility] Lymphocytes Auto (Bld) [#/Vo l]on 11-03-2024 Lymphocytes (Bld) [#/Vol] Lymphocytes [#/volume] in Blood by Automated count 1.00-4.00 [facility] Lymphocytes (Bld) [#/Vol] 2.73 10*3/uL 1.00-4.00 [facility] Lymphocytes/100 WBC Auto (Bl d)on 11-03-2024 Lymphocytes/100 WBC (Bld) Lymphocytes/100 leukocytes in Blood by Automated count [facility] Lymphocytes/100 WBC (Bld) 45.3 % [facility] MCH Auto (RBC) [Entitic mass ]on 11-03-2024 MCH (RBC) [Entitic mass] MCH [Entitic mass] by Automated count 26.0-34.0 [facility] MCH (RBC) [Entitic mass] 31.9 pg 26.0-34.0 [facility] MCHC Auto (RBC) [Mass/Vol]on 11-03-2024 MCHC (RBC) [Mass/Vol] MCHC [Mass/volume] by Automated count 30.5-36.0 [facility] MCHC (RBC) [Mass/Vol] 34.0 g/dL 30.5-36.0 [facility] MCV Auto (RBC) [Entitic vol] on 11-03-2024 MCV (RBC) [Entitic vol] MCV [Entitic volume] by Automated count 80.0-100.0 [facility] MCV (RBC) [Entitic vol] 93.9 fL 80.0-100.0 [facility] Monocytes Auto (Bld) [#/Vol] on 11-03-2024 Monocytes (Bld) [#/Vol] Automated blood monocyte count <0.87 [facility] Monocytes (Bld) [#/Vol] 0.40 10*3/uL <0.87 [facility] Monocytes/100 WBC Auto (Bld) on 11-03-2024 Monocytes/100 WBC (Bld) Automated monocyte % [facility] Monocytes/100 WBC (Bld) 6.6 % [facility] Neutrophils Auto (Bld) [#/Vo l]on 11-03-2024 Neutrophils (Bld) [#/Vol] Neutrophils [#/volume] in Blood by Automated count 1.45-7.50 [facility] Neutrophils (Bld) [#/Vol] 2.67 10*3/uL 1.45-7.50 [facility] Neutrophils/100 WBC Auto (Bl d)on 11-03-2024 Neutrophils/100 WBC (Bld) Automated neutrophil % [facility] Neutrophils/100 WBC (Bld) 44.2 % [facility] No Panel Informationon 11-03 Radiology Study observation (narrative) [facility] Immature Granulocyte # (Auto) <0.03 k/uL <0.10 [facility] Nucleated RBC Auto (Bld) [#/ Vol]on 11-03-2024 Nucleated RBC (Bld) [#/Vol] Nucleated erythrocytes [#/volume] in Blood by Automated count <0.01 [facility] Nucleated RBC (Bld) [#/Vol] 10*3/uL <0.01 [facility] Nucleated erythrocytes [Pres ence] in Blood by Automated counton 11-03-2024 Nucleated RBC Auto Ql (Bld) Nucleated erythrocytes [Presence] in Blood by Automated count [facility] Nucleated RBC Auto Ql (Bld) 0.0 /100{WBC} [facility] Platelet mean volume Auto (B ld) [Entitic vol]on 11-03-2024 Platelet mean volume (Bld) [Entitic vol] Platelet mean volume [Entitic volume] in Blood by Automated count 9.0-12.7 [facility] Platelet mean volume (Bld) [Entitic vol] 11.0 fL 9.0-12.7 [facility] Platelets Auto (Bld) [#/Vol] on 11-03-2024 Platelets (Bld) [#/Vol] Platelets [#/volume] in Blood by Automated count 150-400 [facility] Platelets (Bld) [#/Vol] 281 10*3/uL 150-400 [facility] RBC Auto (Bld) [#/Vol]on RBC (Bld) [#/Vol] Erythrocytes [#/volu me] in Blood by Automated count 4.20-6.00 [facility] RBC (Bld) [#/Vol] 4.26 10*6/uL 4.20-6.00 [facility] MR TRANSFER OF OUTSIDE FILMS on 10-21-2024 MR TRANSFER OF OUTSIDE FILMS Outside images for comparison or treatment purposes, not interpreted by Radiologists. [facility] Study Interpretation of outs jeffrey studyon 10-21-2024 Outside images for comparison or treatment purposes, not interpreted by Radiologists. IMAGING X-ray reportOrdered By: Evie Eubanks on 10-10-2024 Study report [facility] Main [place] [address] [place] [address] XRay Report Signed Patient: Jovani Melendez MR#: [id number] : 1960 Acct:[id number] Age/Sex: 63 / M ADM Date: 5 Loc: XD Room: [facility] Attending Dr: Solomon Narayanan PA-C Copies to: Solomon Narayanan PAC~ Ordering Provider: Solomon Narayanan PAC Date of Service: 10/10/24 XR/XR cervical spine 2V: M54.12,Z98.1 CERVICAL SPINE - 2 views COMPARISON: 06/24/[address] 10/06/2024 CLINICAL DATA: Left cervical fusion. Tingling at the left shoulder. AP and lateral views were obtained. There is osteopenia. An anterior plate andscrews is again seen extending from C5 through [...] Eubanks M.D. 10/10/2024 3:02 PM Dictation Location: [place] [address] Transcribed By: [facility] 10/10/24 1502 Dictated By: Dorothy Eubanks MD 10/10/24 1455 Signed By: 10/10/24 1502 [facility] Work Phone: XR cervical spine 2Von 10-10 XR cervical spine 2V [facility] Main [address] [address] XRay Report Signed Patient: Jovani Melendez MR#: [id number] : 1960 Acct:[id number] Age/Sex: 63 / M ADM Date: 10/10/24 Loc: XD Room: Type: [facility] Attending Dr: Solomon Narayanan PA-C Copies to: Solomon Narayanan PAC Ordering Provider: Solomon Narayanan PAC Date of Service: 10/10/24 XR/XR [...] Eubanks M.D. 10/10/2024 3:02 PM Dictation Location: [place] [address] Transcribed By: [facility] 10/10/24 1502 Dictated By: Dorothy Eubanks MD 10/10/24 1455 Signed By: 10/10/24 1502 Normal [facility] Alanine aminotransferase [En zymatic activity/volume] in Serum or PlasmaOrdered By: Griselda Hastings on 10-07-2024 ALT [Catalytic activity/Vol] Alanine aminotransferase [Enzymatic activity/volume] in Serum or Plasma Low 7-52 [facility] Albumin [Mass/volume] in Ser um or Plasma by Bromocresol green (BCG) dye binding methoOrdered By: Griselda Hastings on 10-07-2024 Albumin BCG dye [Mass/Vol] Albumin [Mass/volume] in Serum or Plasma by Bromocresol green (BCG) dye binding metho Low 3.5-5.7 [facility] Alkaline phosphatase [Enzyma tic activity/volume] in Serum or PlasmaOrdered By: Griselda Hastings on 10-07-2024 ALP [Catalytic activity/Vol] Alkaline phosphatase [Enzymatic activity/volume] in Serum or Plasma 34-104 [facility] Aspartate aminotransferase [ Enzymatic activity/volume] in Serum or PlasmaOrdered By: Grsielda Hastings on 10-07-2024 AST [Catalytic activity/Vol] Aspartate aminotransferase [Enzymatic activity/volume] in Serum or Plasma Low 13-39 [facility] Basophils Auto (Bld) [#/Vol] Ordered By: Griselda Hastings on 10-07-2024 Basophils (Bld) [#/Vol] Automated basophil count 0.0-0.[address] [facility] Basophils/100 WBC Auto (Bld) Ordered By: Griselda Hastings on 10-07-2024 Basophils/100 WBC (Bld) Automated basophil % . [facility] Bilirubin.total [Mass/volume ] in Serum or PlasmaOrdered By: Griselda Hastings on 10-07-2024 Bilirubin [Mass/Vol] Bilirubin.total [Mass/volume] in Serum or Plasma 0.3-1.0 [facility] Calcium [Mass/volume] in Ser um or PlasmaOrdered By: Griselda Hastings on 10-07-2024 Calcium [Mass/Vol] Calcium [Mass/volume ] in Serum or Plasma 8.6-10.3 [facility] Carbon dioxide, total [Moles /volume] in Serum or PlasmaOrdered By: Griselda Hastings on 10-07-2024 CO2 [Moles/Vol] Carbon dioxide, tota l [Moles/volume] in Serum or Plasma 21.0-31.0 [facility] Chloride [Moles/volume] in S rica or PlasmaOrdered By: Griselda Hastings on 10-07-2024 Chloride [Moles/Vol] Chloride [Moles/vol ume] in Serum or Plasma 98-107 [facility] Cholesterol [Mass/volume] in Serum or PlasmaOrdered By: Griselda Hastings on 10-07-2024 Cholesterol [Mass/Vol] Cholesterol [Mass /volume] in Serum or Plasma High 140-200 [facility] Comment on above: Chol less than 200 m g/dl low riskChol 201-239 mg/dl borderline riskChol 240 mg/dl and greater high risk Cholesterol in HDL [Mass/vol ume] in Serum or PlasmaOrdered By: Griselda Hastings on 10-07-2024 Cholesterol in HDL [Mass/Vol] Serum or plasma high density lipoprotein (HDL) cholesterol measurement 23-92 [facility] Comment on above: HDL CHOL ATP-III CLA SSIFICATION Cardiovascular RiskHDL > or equal to 60 mg/dL LOWHDL < 40 mg/dL HIGH Cholesterol in LDL Calc [Mas s/Vol]Ordered By: Griselda Hastings on 10-07-2024 Cholesterol in LDL [Mass/Vol] Cholesterol in LDL [Mass/volume] in Serum or Plasma by calculation High 0-100 [facility] Comment on above: LDL ATP III CLASSIFI CATIONLDL less than 100 mg/dL OptimalLDL 100-129 mg/dL Near or above optimalLDL 130-159 mg/dL Borderline highLDL 160-189 mg/dL HighLDL greater than 189 mg/dL Very high Cholesterol in VLDL Calc [Ma ss/Vol]Ordered By: Griselda Hastings on 10-07-2024 Cholesterol in VLDL [Mass/Vol] Cholesterol in VLDL [Mass/volume] in Serum or Plasma by calculation [facility] Clostridioides difficile tox in B tcdB gene [Presence] in Stool by JER with probe deteOrdered By: Manisha Negron on 10-07-2024 C. difficile toxin B tcdB gene JER+probe Ql (Stl) Clostridioides difficile toxin B tcdB gene [Presence] in Stool by JER with probe dete Negative [facility] Comment on above: Testing performed by RT-PCR Clostridium Difficileon 09-17 Clostridium Difficile Negative Normal Negative [facility] Comment on above: Result Comment: Test ing performed by RT-PCR PERFORMED BY: [place] [address] PATHOLOGIST RECEIVING DOCK CHECKER RAKEL LAZARO M.D. Performed By: #### C DT #### [address] Complete Blood Count Auto Di ffon 10-07-2024 Basophils (Bld) [#/Vol] 0.0 10*3/uL Normal 0.0-0.2 [facility] Comment on above: Result Comment: PERF ORMED BY: [place] [address] PATHOLOGIST RECEIVING DOCK CHECKER RAKEL LAZARO M.D. Performed By: #### H S TROP #### [place] [address] [place] Basophils/100 WBC (Bld) 0.8 % Normal . [facility] Comment on above: Performed By: #### H S TROP #### [place] [address] [place] Eosinophils (Bld) [#/Vol] 0.0 10*3/uL Normal 0.0-0.45 [facility] Comment on above: Performed By: #### H S TROP #### [place] [address] [place] Eosinophils/100 WBC (Bld) 0.8 % Normal . [facility] Comment on above: Performed By: #### H S TROP #### [address] Erythrocyte distribution width (RBC) [Ratio] 13.7 % Normal 12.0-14.8 [facility] Comment on above: Performed By: #### H S TROP #### [address] Hematocrit (Bld) [Volume fraction] 36.6 % Low 38.8-50.0 [facility] Comment on above: Performed By: #### H S TROP #### [address] Hemoglobin (Bld) [Mass/Vol] 12.8 g/dL Low 13.0-17.0 [facility] Comment on above: Performed By: #### H S TROP #### [place] [address] [place] Lymphocytes (Bld) [#/Vol] 1.7 10*3/uL Normal 1.00-4.8 [facility] Comment on above: Performed By: #### H S TROP #### [place] [address] [place] Lymphocytes/100 WBC (Bld) 31.1 % Normal . [facility] Comment on above: Performed By: #### H S TROP #### [address] MCH (RBC) [Entitic mass] 32.4 pg Normal 27.5-35.2 [facility] Comment on above: Performed By: #### H S TROP #### [address] MCV (RBC) [Entitic vol] 92.8 fL Normal 83.5-101 [facility] Comment on above: Performed By: #### H S TROP #### [address] Mean Corpuscular HGB Conc 34.9 g/dL Normal 32.5-35.6 [facility] Comment on above: Performed By: #### H S TROP #### [address] Monocytes (Bld) [#/Vol] 0.3 10*3/uL Normal 0.0-0.8 [facility] Comment on above: Performed By: #### H S TROP #### [address] Monocytes/100 WBC (Bld) 4.9 % Normal . [facility] Comment on above: Performed By: #### H S TROP #### [address] Neutrophils (Bld) [#/Vol] 3.4 10*3/uL Normal 1.8-7.7 [facility] Comment on above: Performed By: #### H S TROP #### [address] Neutrophils/100 WBC (Bld) 62.4 % Normal . [facility] Comment on above: Performed By: #### H S TROP #### [address] NRBC% 0.0 /100{WBC} Normal 0-0.5 [facility] Comment on above: Performed By: #### H S TROP #### [address] Platelet mean volume (Bld) [Entitic vol] 8.8 fL Normal 6.6-10.[address] [facility] Comment on above: Performed By: #### H S TROP #### [address] Platelets (Bld) [#/Vol] 343 10*3/uL Normal 150-450 [facility] Comment on above: Performed By: #### H S TROP #### [address] RBC (Bld) [#/Vol] 3.94 10*6/uL Normal 3.90-5.60 [facility] Comment on above: Performed By: #### H S TROP #### [address] WBC (Bld) [#/Vol] 5.5 10*3/uL Normal 4.1-10.5 [facility] Comment on above: Performed By: #### H S TROP #### [address] Comprehensive Metabolic Pane chanel 10-07-2024 Albumin [Mass/Vol] 3.4 g/dL Low 3.5-5.7 [facility] Comment on above: Performed By: #### H S TROP #### [address] Albumin/Globulin [Mass ratio] 1.8 {ratio} Normal [facility] Comment on above: Performed By: #### H S TROP #### [address] ALP [Catalytic activity/Vol] 62 U/L Normal 34-104 [facility] Comment on above: Performed By: #### H S TROP #### [address] ALT [Catalytic activity/Vol] 6 U/L Low 7-52 [facility] Comment on above: Performed By: #### H S TROP #### [address] Anion gap [Moles/Vol] 9.7 mmol/L Normal 6.0-15.0 [facility] Comment on above: Performed By: #### H S TROP #### [address] AST [Catalytic activity/Vol] 8 U/L Low 13-39 [facility] Comment on above: Performed By: #### H S TROP #### [address] Bilirubin [Mass/Vol] 0.6 mg/dL Normal 0.3-1.0 [facility] Comment on above: Performed By: #### H S TROP #### [address] Calcium [Mass/Vol] 9.3 mg/dL Normal 8.6-10.3 [facility] Comment on above: Performed By: #### H S TROP #### [place] [address] [place] Chloride [Moles/Vol] 103 mmol/L Normal 98-107 [facility] Comment on above: Performed By: #### H S TROP #### [place] [address] [place] CO2 [Moles/Vol] 29.1 mmol/L Normal 21.0-31.0 [facility] Comment on above: Performed By: #### H S TROP #### [address] Creatinine [Mass/Vol] 0.74 mg/dL Normal 0.70-1.30 [facility] Comment on above: Performed By: #### H S TROP #### [place] [address] [place] GFR/1.73 sq M.predicted MDRD (S/P/Bld) [Vol rate/Area] mL/min/{1.73_m2} Normal [facility] Comment on above: Performed By: #### H S TROP #### [place] [address] [place] Globulin (S) [Mass/Vol] 1.9 g/dL Normal [facility] Comment on above: Performed By: #### H S TROP #### [address] Glucose [Mass/Vol] 84 mg/dL Normal 70-100 [facility] Comment on above: Result Comment: [place] Glucose Reference Range is dependent on time and content of last meal. Glucose of more than 200 mg/dL in a nonstressed, ambulatory subject supports the diagnosis of Diabetes Mellitus. ADA recommended reference range Performed By: #### H S TROP #### [address] Potassium [Moles/Vol] 4.8 mmol/L Normal 3.5-5.1 [facility] Comment on above: Performed By: #### H S TROP #### [address] Protein [Mass/Vol] 5.3 g/dL Low 6.4-8.9 [facility] Comment on above: Performed By: #### H S TROP #### [address] Sodium [Moles/Vol] 137 mmol/L Normal 136-145 [facility] Comment on above: Performed By: #### H S TROP #### [address] Urea nitrogen [Mass/Vol] 7 mg/dL Normal 7-25 [facility] Comment on above: Performed By: #### H S TROP #### [place] [address] [place] Creatinine [Mass/volume] in Serum or PlasmaOrdered By: Grieslda [place] on 10-07-2024 Creatinine [Mass/Vol] Creatinine [Mass/v olume] in Serum or Plasma 0.70-1.30 [facility] Eosinophils Auto (Bld) [#/Vo l]Ordered By: Griselda Hastings on 10-07-2024 Eosinophils (Bld) [#/Vol] Automated eosinophil count 0.0-0.45 [facility] Eosinophils/100 WBC Auto (Bl d)Ordered By: Griselda Hastings on 10-07-2024 Eosinophils/100 WBC (Bld) Automated eosinophil % . [facility] Erythrocyte distribution wid th Auto (RBC) [Ratio]Ordered By: Griselda Hastings on 10-07-2024 Erythrocyte distribution width (RBC) [Ratio] Erythrocyte distribution width [Ratio] by Automated count 12.0-14.8 [facility] Globulin Calc (S) [Mass/Vol] Ordered By: Girselda Hastings on 10-07-2024 Globulin (S) [Mass/Vol] Serum globulin measurement by calculation (mass/volume) [facility] Glucose [Mass/volume] in Ser um or PlasmaOrdered By: Griselda Hastings on 10-07-2024 Glucose [Mass/Vol] Glucose [Mass/volume ] in Serum or Plasma 70-100 [facility] Comment on above: ADA recommended refe rence rangeRandom Glucose Reference Range is dependent on time and content of last meal. Glucose of more than 200 mg/dL in a nonstressed, ambulatory subject supports the diagnosis of Diabetes Mellitus. Hematocrit Auto (Bld) [Volum e fraction]Ordered By: Griselda Hastings on 10-07-2024 Hematocrit (Bld) [Volume fraction] Hematocrit [Volume Fraction] of Blood by Automated count Low 38.8-50.0 [facility] Hemoglobin [Mass/volume] in BloodOrdered By: Griselda Hastings on 10-07-2024 Hemoglobin (Bld) [Mass/Vol] Hemoglobin [Mass/volume] in Blood Low 13.0-17.0 [facility] Leukocytes [#/volume] correc mone for nucleated erythrocytes in Blood by Automated counOrdered By: Griselda Hastings on 10-07-2024 WBC corrected for nucl RBC Auto (Bld) [#/Vol] Leukocytes [#/volume] corrected for nucleated erythrocytes in Blood by Automated coun 4.1-10.5 [facility] Lipid Panelon 10-07-2024 Cholesterol [Mass/Vol] 204 mg/dL High 140-200 [facility] Comment on above: Result Comment: Chol less than 200 mg/dl low risk Chol 201-239 mg/dl borderline risk Chol 240 mg/dl and greater high risk Performed By: #### H S TROP #### [address] Cholesterol in HDL [Mass/Vol] 35 mg/dL Normal 23-92 [facility] Comment on above: Result Comment: HDL CHOL ATP-III CLASSIFICATION Cardiovascular Risk HDL > or equal to 60 mg/dL LOW HDL < 40 mg/dL HIGH Performed By: #### H S TROP #### [facility] [address] Cholesterol.total/Chol esterol in HDL [Mass ratio] 5.8 {ratio} Normal <5.0 [facility] Comment on above: Performed By: #### H S TROP #### [address] LDL Cholesterol,Calculated 145 mg/dL High 0-100 [facility] Comment on above: Result Comment: LDL ATP III CLASSIFICATION LDL less than 100 mg/dL Optimal LDL 100-129 mg/dL Near or above optimal LDL 130-159 mg/dL Borderline high LDL 160-189 mg/dL High LDL greater than 189 mg/dL Very high Performed By: #### H S TROP #### [facility] [address] Triglyceride w/Reflex 118 mg/dL Normal 0-149 [facility] Comment on above: Result Comment: TRIG ATP III CLASSIFICATION TRIG less than 150 mg/dL Normal TRIG 150-199 mg/dL Borderline high TRIG 200-500 mg/dL High TRIG greater than 500 mg/dL Very high Standard traceable to the Center for Disease Conrtrol and Prevention (CDC) test method. Performed By: #### H S TROP #### [facility] [address] VLDL CHOLESTEROL 23 mg/dL Normal [facility] Comment on above: Performed By: #### H S TROP #### [facility] [address] [place] [address] [place] Lymphocytes Auto (Bld) [#/Vo l]Ordered By: Griselda Hastings on 10-07-2024 Lymphocytes (Bld) [#/Vol] Lymphocytes [#/volume] in Blood by Automated count 1.00-4.8 [facility] Lymphocytes/100 WBC Auto (Bl d)Ordered By: Griselda Hastings on 10-07-2024 Lymphocytes/100 WBC (Bld) Lymphocytes/100 leukocytes in Blood by Automated count . [facility] MCH Auto (RBC) [Entitic mass ]Ordered By: Griselda Hastings on 10-07-2024 MCH (RBC) [Entitic mass] MCH [Entitic mass] by Automated count 27.5-35.2 [facility] MCHC Auto (RBC) [Mass/Vol]Or dered By: Griselda Hastings on 10-07-2024 MCHC (RBC) [Mass/Vol] MCHC [Mass/volume] by Automated count 32.5-35.6 [facility] MCV Auto (RBC) [Entitic vol] Ordered By: Griselda Hastings on 10-07-2024 MCV (RBC) [Entitic vol] MCV [Entitic volume] by Automated count 83.5-101 [facility] Monocytes Auto (Bld) [#/Vol] Ordered By: Griselda Hastings on 10-07-2024 Monocytes (Bld) [#/Vol] Automated blood monocyte count 0.0-0.8 [facility] Monocytes/100 WBC Auto (Bld) Ordered By: Griselda Hastings on 10-07-2024 Monocytes/100 WBC (Bld) Automated monocyte % . [facility] Neutrophils Auto (Bld) [#/Vo l]Ordered By: Griselda Hastings on 10-07-2024 Neutrophils (Bld) [#/Vol] Neutrophils [#/volume] in Blood by Automated count 1.8-7.7 [facility] Neutrophils/100 WBC Auto (Bl d)Ordered By: Griselda Hastings on 10-07-2024 Neutrophils/100 WBC (Bld) Automated neutrophil % . [facility] No Panel InformationOrdered By: Griselda Hastings on 10-07-2024 Estimated GFR (CKD-EPI) > 60.0 mL/Min [facility] Creatinine Clearance (Chem N/A [facility] Nucleated erythrocytes [Pres ence] in Blood by Automated countOrdered By: Griselda Hastings on 10-07-2024 Nucleated RBC Auto Ql (Bld) Nucleated erythrocytes [Presence] in Blood by Automated count 0-0.5 [facility] PSA Screen (Yearly Only)on 0 10-07-2024 PSA Screen (Yearly Only) 0.670 ng/mL Normal 0.000-4.00 0 [facility] Comment on above: Result Comment: Seri al tumor marker results determined by assays using different manufacturers or methods may not be comparable. [facility] design project manager and method: [employer]EL DXI, CHEMILUMINESCENT IMMUNOASSAY. PERFORMED BY: [place] [address] PATHOLOGIST RECEIVING DOCK CHECKER RAKEL LAZARO M.D. Performed By: #### H S TROP #### [address] Platelet mean volume Auto (B ld) [Entitic vol]Ordered By: Griselda Hastings on 10-07-2024 Platelet mean volume (Bld) [Entitic vol] Platelet mean volume [Entitic volume] in Blood by Automated count 6.6-10.1 [facility] Platelets Auto (Bld) [#/Vol] Ordered By: Griselda Hastings on 10-07-2024 Platelets (Bld) [#/Vol] Platelets [#/volume] in Blood by Automated count 150-450 [facility] Potassium [Moles/volume] in Serum or PlasmaOrdered By: Griselda Hastings on 10-07-2024 Potassium [Moles/Vol] Potassium [Moles/v olume] in Serum or Plasma 3.5-5.1 [facility] Prostate specific Ag [Mass/v olume] in Serum or PlasmaOrdered By: Griselda Hastings on 10-07-2024 Prostate specific Ag [Mass/Vol] Prostate specific Ag [Mass/volume] in Serum or Plasma 0.000-4.00 0 [facility] Comment on above: Serial tumor marker results determined by assays using different manufacturers or methods may not be comparable.[facility] design project manager and method:[employer]EL DXI, CHEMILUMINESCENT IMMUNOASSAY. Protein [Mass/volume] in Ser um or PlasmaOrdered By: Griselda Hastings on 10-07-2024 Protein [Mass/Vol] Protein [Mass/volume ] in Serum or Plasma Low 6.4-8.9 [facility] RBC Auto (Bld) [#/Vol]Ordere d By: Griselda Hastings on 10-07-2024 RBC (Bld) [#/Vol] Erythrocytes [#/volu me] in Blood by Automated count 3.90-5.60 [facility] Serum or plasma albumin/glob ulin mass ratioOrdered By: Griselda Hastings on 10-07-2024 Albumin/Globulin [Mass ratio] Serum or plasma albumin/globulin mass ratio [facility] Serum or plasma anion gap de terminationOrdered By: Griselda Hastings on 10-07-2024 Anion gap [Moles/Vol] Serum or plasma an ion gap determination 6.0-15.0 [facility] Serum or plasma total choles terol/high density lipoprotein (HDL) cholesterol mass ratOrdered By: Griselda Hastings on 10-07-2024 Cholesterol.total/Chol esterol in HDL [Mass ratio] Serum or plasma total cholesterol/high density lipoprotein (HDL) cholesterol mass rat <5.0 [facility] Sodium [Moles/volume] in Ser um or PlasmaOrdered By: Griselda Hastings on 10-07-2024 Sodium [Moles/Vol] Sodium [Moles/volume ] in Serum or Plasma 136-145 [facility] Thyroid Stimulating Hormoneo n 10-07-2024 TSH Qn 1.03 m[IU]/L Normal 0.45-5.[address] [facility] Comment on above: Result Comment: PERF ORMED BY: [place] [address] PATHOLOGIST RECEIVING DOCK CHECKER RAKEL LAZARO M.D. Performed By: #### H S TROP #### [address] Thyrotropin [Units/volume] i n Serum or PlasmaOrdered By: Griselda Hastings on 10-07-2024 TSH Qn Thyrotropin [Units/volume] in Serum or Plasma 0.45-5.33 [facility] Triglyceride [Mass/volume] i n Serum or PlasmaOrdered By: Griselda Hastings on 10-07-2024 Triglyceride [Mass/Vol] Triglyceride [Mass/volume] in Serum or Plasma 0-149 [facility] Comment on above: TRIG ATP III CLASSIF ICATIONTRIG less than 150 mg/dL NormalTRIG 150-199 mg/dL Borderline highTRIG 200-500 mg/dL High TRIG greater than 500 mg/dL Very highStandard traceable to the Center for Disease Conrtrol and Prevention (CDC) test method. Urea nitrogen [Mass/volume] in Serum or PlasmaOrdered By: Griselda Hastings on 10-07-2024 Urea nitrogen [Mass/Vol] Urea nitrogen [Mass/volume] in Serum or Plasma 01-09 [facility] WBC Auto (Bld) [#/Vol]Ordere d By: Griselda Hastings on 10-07-2024 WBC (Bld) [#/Vol] Leukocytes [#/volume ] in Blood by Automated count 4.1-10.5 [facility] Alanine aminotransferase [En zymatic activity/volume] in Serum or PlasmaOrdered By: PROVIDER TEMP on 10-06-2024 ALT [Catalytic activity/Vol] Alanine aminotransferase [Enzymatic activity/volume] in Serum or Plasma [facility] Albumin [Mass/volume] in Ser um or Plasma by Bromocresol green (BCG) dye binding methoOrdered By: PROVIDER TEMP on 10-06-2024 Albumin BCG dye [Mass/Vol] Albumin [Mass/volume] in Serum or Plasma by Bromocresol green (BCG) dye binding metho 3.5-5.7 [facility] Alkaline phosphatase [Enzyma tic activity/volume] in Serum or PlasmaOrdered By: PROVIDER TEMP on 10-06-2024 ALP [Catalytic activity/Vol] Alkaline phosphatase [Enzymatic activity/volume] in Serum or Plasma 34-104 [facility] Appearance of UrineOrdered B y: Manisha Negron on 10-06-2024 Appearance (U) Urine appearance Clear [facility] Aspartate aminotransferase [ Enzymatic activity/volume] in Serum or PlasmaOrdered By: PROVIDER TEMP on 10-06-2024 AST [Catalytic activity/Vol] Aspartate aminotransferase [Enzymatic activity/volume] in Serum or Plasma Low 13-39 [facility] Bacteria [Presence] in Urine by AutomatedOrdered By: Manisha Negron on 10-06-2024 Bacteria Auto Ql (U) Bacteria [Presence] in Urine by Automated None Seen [facility] Basic Metabolic Panelon 04-2 Anion gap [Moles/Vol] 8.5 mmol/L Normal 6.0-15.0 [facility] Comment on above: Performed By: #### L IPASE, BMP, CBC, HEPATIC #### [facility] [address] Calcium [Mass/Vol] 9.5 mg/dL Normal 8.6-10.3 [facility] Comment on above: Performed By: #### L IPASE, BMP, CBC, HEPATIC #### [facility] [address] [place] [address] [place] Chloride [Moles/Vol] 104 mmol/L Normal 98-107 [facility] Comment on above: Performed By: #### L IPASE, BMP, CBC, HEPATIC #### [facility] [address] CO2 [Moles/Vol] 28.3 mmol/L Normal 21.0-31.0 [facility] Comment on above: Performed By: #### L IPASE, BMP, CBC, HEPATIC #### [facility] [address] [place] [address] [place] Creatinine [Mass/Vol] 0.82 mg/dL Normal 0.70-1.30 [facility] Comment on above: Performed By: #### L IPASE, BMP, CBC, HEPATIC #### [facility] [address] [place] [address] [place] Creatinine Clr Calc Pharmacy 91.52 Normal [facility] Comment on above: Performed By: #### L IPASE, BMP, CBC, HEPATIC #### [place] [address] [place] GFR/1.73 sq M.predicted MDRD (S/P/Bld) [Vol rate/Area] mL/min/{1.73_m2} Normal [facility] Comment on above: Performed By: #### L IPASE, BMP, CBC, HEPATIC #### [address] Glucose [Mass/Vol] 86 mg/dL Normal 70-100 [facility] Comment on above: Result Comment: [place] Glucose Reference Range is dependent on time and content of last meal. Glucose of more than 200 mg/dL in a nonstressed, ambulatory subject supports the diagnosis of Diabetes Mellitus. ADA recommended reference range Performed By: #### L IPASE, BMP, CBC, HEPATIC #### [facility] [address] Potassium [Moles/Vol] 4.8 mmol/L Normal 3.5-5.1 [facility] Comment on above: Performed By: #### L IPASE, BMP, CBC, HEPATIC #### [facility] [address] Sodium [Moles/Vol] 136 mmol/L Normal 136-145 [facility] Comment on above: Performed By: #### L IPASE, BMP, CBC, HEPATIC #### [facility] [address] Urea nitrogen [Mass/Vol] 9 mg/dL Normal 7-25 [facility] Comment on above: Performed By: #### L IPASE, BMP, CBC, HEPATIC #### [facility] [address] Basophils Auto (Bld) [#/Vol] Ordered By: PROVIDER TEMP on 10-06-2024 Basophils (Bld) [#/Vol] Automated basophil count 0.0-0.[address] [facility] Basophils/100 WBC Auto (Bld) Ordered By: PROVIDER TEMP on 10-06-2024 Basophils/100 WBC (Bld) Automated basophil % . [facility] Bilirubin Test strip Ql (U)O rdered By: Manisha Negron on 10-06-2024 Bilirubin Ql (U) Bilirubin.total [Presence] in Urine by Test strip Negative [facility] Bilirubin.direct [Mass/volum e] in Serum or PlasmaOrdered By: PROVIDER TEMP on 10-06-2024 Bilirubin.direct [Mass/Vol] Bilirubin.direct [Mass/volume] in Serum or Plasma 0.03-0.18 [facility] Bilirubin.total [Mass/volume ] in Serum or PlasmaOrdered By: PROVIDER TEMP on 10-06-2024 Bilirubin [Mass/Vol] Bilirubin.total [Mass/volume] in Serum or Plasma 0.3-1.[address] [facility] CT abdomen pelvis w conon CT abdomen pelvis w con [facility] [address] [place] [address] CT Scan Report Signed Patient: Jovani Melendez MR#: [id number] : 1960 Acct:[id number] Age/Sex: 63 / M ADM Date: 10/06/24 Loc: ER Room: Type: [facility] ER Attending Dr: Copies to: Manisha Negron APRN Ordering Provider: Manisha Negron APRN Date of Service: 10/06/24 CT/CT abdomen pelvis w con: pain CT ABDOMEN AND PELVIS WITH CONTRAST COMPARISON: 04/06/2016 CLINICAL DATA: Sensation of something stuck in the throat for the past month with decrease in appetite and constipation. Spiral images were obtained through the abdomen pelvis following 90 mL Isovue-300. This CT exam was performed using one or more following dose reduction techniques: Automated exposure control, adjustment of the mA and/or kV according to patient size, or use of iterative reconstruction technique. Limited cuts through the lung bases show no contributory findings within limits of respiratory motion. There is some artifact through the upper abdomen from patient's arms and chest leads. There is also motion. No intrahepatic masses are identified. No calcified gallstones are seen. The spleen, pancreas and adrenal glands show no acute findings. The renal nephrograms are symmetric. No hydronephrosis is identified. A couple small cysts are visualized at the lower pole of the right kidney. There is also a developing 1 cm lower pole nodule laterally which is not a simple cyst. There is no hydronephrosis. Mild atherosclerotic plaque is present at the aorta and iliac arteries. No enlarged lymph nodes or ascites are seen. The small bowel loops are not distended. Mild stool is visualized within the colon. There are left-sided colonic diverticula. Levoscoliotic curvature and degenerative changes are present at the spine. Images through the pelvis show no dilated small bowel loops. There is no appendiceal inflammation. There are portions of the distal descending and sigmoid colons as well as the rectum which are not well distended and there is apparent wall thickening. There are additional colonic diverticula, without associated active inflammation. The prostate is not significantly enlarged however it does contain calcification. There is a poorly distended urinary bladder with wall thickening. No intraluminal abnormalities are seen. There is no ascites. There is additional atherosclerotic disease. There is a left iliac stents. CT/CT abdomen pelvis w con IMPRESSION: NO BOWEL OR URINARY TRACT OBSTRUCTION. SMALL SIMPLE RIGHT RENAL CYSTS AND INDETERMINANT LOWER POLE HYPODENSITY. THIS COULD BE FURTHER EVALUATED WITH ULTRASOUND OR MRI OR FOLLOWED UP WITH SERIAL CT TO ASSESS STABILITY. DIVERTICULOSIS. UNDER DISTENDED SEGMENTS OF DISTAL COLON WELL THE URINARY BLADDER WHERE THERE IS APPARENT WALL THICKENING. Impression dictated by: Dorothy Eubanks M.D.10/06/2024 4:08 PM Dictation Location: [place] [address] Transcribed By: MARISA 10/06/24 1608 Dictated By: Dorothy Eubanks MD 10/06/24 1556 Signed By: 10/06/24 1608 Normal [facility] CT soft tissue neck w conon 10-06-2024 CT soft tissue neck w [facility] [address] [place] [address] CT Scan Report Signed Patient: Jovani Melendez MR#: [id number] : 1960 Acct:[id number] Age/Sex: 63 / M ADM Date: 10/06/24 Loc: ER Room: Type: [facility] ER Attending Dr: Copies to: Manisha Negron APRN Ordering Provider: Manisha Negron APRN Date of Service: 10/06/24 CT/CT soft tissue neck w con: Difficulty swallowing CLINICAL DATA: Sensation of something sticking in throat for the past month and decreased appetite. Anterior cervical fusion [address] SOFT TISSUE NECK WITH CONTRAST COMPARISON: 05/04/2023 Spiral images were obtained through the neck following 90 mL Isovue-300. This CT exam was performed using one or more following dose reduction techniques: Automated exposure control, adjustment of the mA and/or kV according to patient size, or use of iterative reconstruction technique. No thyroid nodularity is identified. The submandibular and parotid glands appear symmetric. There is no significant enlargement of the adenoids or tonsils. The epiglottis and vocal cords are within normal limits. The airway is patent throughout its course with normal appearance of the mucosal surfaces. No radiopaque foreign bodies are seen. There are few similar small cervical lymph nodes. No developing lymphadenopathy is seen. There is carotid artery plaque. There is new anterior fusion with plate and screws extending from C5 through C7. Degenerative changes are again visualized. The imaged paranasal sinuses and mastoid are cells are clear. The upper imaged lungs show no contributory findings. CT/CT soft tissue neck w con IMPRESSION: NO ACUTE ABNORMALITIES INVOLVING THE NECK. Impression dictated by: Dorothy Eubanks M.D.10/06/2024 3:56 PM Dictation Location: [place] [address] Transcribed By: [facility] 10/06/24 155 Dictated By: Dorothy Eubanks MD 10/06/24 155 Signed By: 10/06/241555 Normal [facility] Calcium [Mass/volume] in Ser um or PlasmaOrdered By: PROVIDER TEMP on 10-06-2024 Calcium [Mass/Vol] Calcium [Mass/volume ] in Serum or Plasma 8.6-10.3 [facility] Carbon dioxide, total [Moles /volume] in Serum or PlasmaOrdered By: PROVIDER TEMP on 10-06-2024 CO2 [Moles/Vol] Carbon dioxide, tota l [Moles/volume] in Serum or Plasma 21.0-31.0 [facility] Chloride [Moles/volume] in S r[place] or PlasmaOrdered By: PROVIDER TEMP on 10-06-2024 Chloride [Moles/Vol] Chloride [Moles/vol ume] in Serum or Plasma 98-107 [facility] Color Auto (U)Ordered By: Braeden Negron on 10-06-2024 Color (U) Color of Urine by Auto Yellow Fi [facility] Complete Blood Count Auto Di ffon 10-06-2024 Basophils (Bld) [#/Vol] 0.1 10*3/uL Normal 0.0-0.2 [facility] Comment on above: Result Comment: PERF ORMED BY: [place] [address] PATHOLOGIST RECEIVING DOCK CHECKER RAKEL LAZARO M.D. Performed By: #### L IPASE, BMP, CBC, HEPATIC #### [place] [address] [place] Basophils/100 WBC (Bld) 1.1 % Normal . [facility] Comment on above: Performed By: #### L IPASE, BMP, CBC, HEPATIC #### [address] Eosinophils (Bld) [#/Vol] 0.1 10*3/uL Normal 0.0-0.45 [facility] Comment on above: Performed By: #### L IPASE, BMP, CBC, HEPATIC #### [address] Eosinophils/100 WBC (Bld) 0.9 % Normal . [facility] Comment on above: Performed By: #### L IPASE, BMP, CBC, HEPATIC #### [address] Erythrocyte distribution width (RBC) [Ratio] 13.7 % Normal 12.0-14.8 [facility] Comment on above: Performed By: #### L IPASE, BMP, CBC, HEPATIC #### [address] Hematocrit (Bld) [Volume fraction] 37.0 % Low 38.8-50.0 [facility] Comment on above: Performed By: #### L IPASE, BMP, CBC, HEPATIC #### [address] Hemoglobin (Bld) [Mass/Vol] 12.8 g/dL Low 13.0-17.0 [facility] Comment on above: Performed By: #### L IPASE, BMP, CBC, HEPATIC #### [place] [address] [place] Lymphocytes (Bld) [#/Vol] 2.0 10*3/uL Normal 1.00-4.8 [facility] Comment on above: Performed By: #### L IPASE, BMP, CBC, HEPATIC #### [address] Lymphocytes/100 WBC (Bld) 28.2 % Normal . [facility] Comment on above: Performed By: #### L IPASE, BMP, CBC, HEPATIC #### [address] MCH (RBC) [Entitic mass] 32.0 pg Normal 27.5-35.2 [facility] Comment on above: Performed By: #### L IPASE, BMP, CBC, HEPATIC #### [address] MCV (RBC) [Entitic vol] 92.6 fL Normal 83.5-101 [facility] Comment on above: Performed By: #### L IPASE, BMP, CBC, HEPATIC #### [address] Mean Corpuscular HGB Conc 34.6 g/dL Normal 32.5-35.6 [facility] Comment on above: Performed By: #### L IPASE, BMP, CBC, HEPATIC #### [address] Monocytes (Bld) [#/Vol] 0.4 10*3/uL Normal 0.0-0.8 [facility] Comment on above: Performed By: #### L IPASE, BMP, CBC, HEPATIC #### [address] Monocytes/100 WBC (Bld) 17.04 % Normal 0.00-20.00 [facility] Comment on above: Performed By: #### L IPASE, BMP, CBC, HEPATIC #### [address] Monocytes/100 WBC (Bld) 5.4 % Normal . [facility] Comment on above: Performed By: #### L IPASE, BMP, CBC, HEPATIC #### [address] Neutrophils (Bld) [#/Vol] 4.7 10*3/uL Normal 1.8-7.7 [facility] Comment on above: Performed By: #### L IPASE, BMP, CBC, HEPATIC #### [address] Neutrophils/100 WBC (Bld) 64.4 % Normal . [facility] Comment on above: Performed By: #### L IPASE, BMP, CBC, HEPATIC #### [facility] [address] NRBC% 0.1 /100{WBC} Normal 0-0.5 [facility] Comment on above: Performed By: #### L IPASE, BMP, CBC, HEPATIC #### [facility] [address] Platelet mean volume (Bld) [Entitic vol] 8.4 fL Normal 6.6-10.1 [facility] Comment on above: Performed By: #### L IPASE, BMP, CBC, HEPATIC #### [address] Platelets (Bld) [#/Vol] 357 10*3/uL Normal 150-450 [facility] Comment on above: Performed By: #### L IPASE, BMP, CBC, HEPATIC #### [facility] [address] RBC (Bld) [#/Vol] 3.99 10*6/uL Normal 3.90-5.60 [facility] Comment on above: Performed By: #### L IPASE, BMP, CBC, HEPATIC #### [address] WBC (Bld) [#/Vol] 7.2 10*3/uL Normal 4.1-10.5 [facility] Comment on above: Performed By: #### L IPASE, BMP, CBC, HEPATIC #### [address] Creatinine [Mass/volume] in Serum or PlasmaOrdered By: PROVIDER TEMP on 10-06-2024 Creatinine [Mass/Vol] Creatinine [Mass/v olume] in Serum or Plasma 0.70-1.30 [facility] Dipstick and Microscopicon 0 10-06-2024 Appearance (U) Clear Normal Clear [facility] Comment on above: Order Comment: Name Collection Type:: Clean-Voided Midstream Performed By: #### L IPASE, BMP, CBC, HEPATIC #### [facility] [address] [place] [address] [place] Bacteria,Urine None Seen Normal None Seen [facility] Comment on above: Order Comment: Name Collection Type:: Clean-Voided Midstream Performed By: #### L IPASE, BMP, CBC, HEPATIC #### [facility] [address] [place] [address] [place] Bilirubin,Urine Negative Normal Negative [facility] Comment on above: Order Comment: Name Collection Type:: Clean-Voided Midstream Performed By: #### L IPASE, BMP, CBC, HEPATIC #### [facility] [address] Color (U) Yellow Normal Yellow [facility] Comment on above: Order Comment: Name Collection Type:: Clean-Voided Midstream Performed By: #### L IPASE, BMP, CBC, HEPATIC #### [address] Glucose Ql (U) Normal Normal Normal [facility] Comment on above: Order Comment: Name Collection Type:: Clean-Voided Midstream Performed By: #### L IPASE, BMP, CBC, HEPATIC #### [address] Hyaline Casts,Urine None Normal 0-8 [facility] Comment on above: Order Comment: Name Collection Type:: Clean-Voided Midstream Performed By: #### L IPASE, BMP, CBC, HEPATIC #### [facility] [address] [place] [address] [place] Ketones Ql (U) Negative Normal Negative [facility] Comment on above: Order Comment: Name Collection Type:: Clean-Voided Midstream Performed By: #### L IPASE, BMP, CBC, HEPATIC #### [address] Leukocyte esterase Test strip Ql (U) Negative Normal Negative [facility] Comment on above: Order Comment: Name Collection Type:: Clean-Voided Midstream Performed By: #### L IPASE, BMP, CBC, HEPATIC #### [place] [address] [place] Mucus,Urine Rare Normal [facility] Comment on above: Order Comment: Name Collection Type:: Clean-Voided Midstream Result Comment: PERF ORMED BY: [place] [address] PATHOLOGIST RECEIVING DOCK CHECKER RAKEL LAZARO M.D. Performed By: #### L IPASE, BMP, CBC, HEPATIC #### [place] [address] [place] Nitrite,Urine Negative Normal Negative [facility] Comment on above: Order Comment: Name Collection Type:: Clean-Voided Midstream Performed By: #### L IPASE, BMP, CBC, HEPATIC #### [place] [id number] [place] Occult Blood,Urine Trace High Negative [facility] Comment on above: Order Comment: Name Collection Type:: Clean-Voided Midstream Result Comment: PERF ORMED BY: [place] [address] PATHOLOGIST RECEIVING DOCK CHECKER RAKEL LAZARO M.D. Performed By: #### L IPASE, BMP, CBC, HEPATIC #### [place] [id number] [place] pH (U) 5.5 [pH] Normal 5.0-9.0 [facility] Comment on above: Order Comment: Name Collection Type:: Clean-Voided Midstream Performed By: #### L IPASE, BMP, CBC, HEPATIC #### [place] [id number] [place] Protein,Urine Negative Normal Negative [facility] Comment on above: Order Comment: Name Collection Type:: Clean-Voided Midstream Performed By: #### L IPASE, BMP, CBC, HEPATIC #### [place] [id number] [place] RBC,Urine 1-2 Normal 0-4 [facility] Comment on above: Order Comment: Name Collection Type:: Clean-Voided Midstream Performed By: #### L IPASE, BMP, CBC, HEPATIC #### [address] Specificy [place],Urine >1.050 High 1.001-1.03 0 [facility] Comment on above: Order Comment: Name Collection Type:: Clean-Voided Midstream Performed By: #### L IPASE, BMP, CBC, HEPATIC #### [address] Squamous Epithelial Cell,Urine 1-2 Normal 0-2 [facility] Comment on above: Order Comment: Name Collection Type:: Clean-Voided Midstream Performed By: #### L IPASE, BMP, CBC, HEPATIC #### [address] Urobilinogen,Urine Normal Normal Normal [facility] Comment on above: Order Comment: Name Collection Type:: Clean-Voided Midstream Performed By: #### L IPASE, BMP, CBC, HEPATIC #### [address] WBC,Urine 1-2 Normal 0-4 [facility] Comment on above: Order Comment: Name Collection Type:: Clean-Voided Midstream Performed By: #### L IPASE, BMP, CBC, HEPATIC #### [address] ECG 12 lead ECGon 10-06-2024 ECG 12 lead ECG [facility] [place] [address] [place] [address] Electrocardiograph Report Signed Patient: Jovani Melendez MR#: [id number] : 1960 Acct:[id number] Age/Sex: 63 / M ADM Date: 10/06/24 Loc: ER Room: Type: [facility] ER Attending Dr: Ordering Provider: Manisha Negron APRN Date of Service: 10/06/24 ECG/ECG 12 lead ECG: Abdominal Pain Copies to: Test Reason : Blood Pressure : */* mmHG Vent. Rate : 76 BPM Atrial Rate : 105 BPM P-R Int : * ms QRS Dur : 78 ms QT Int : 376 ms P-R-T Axes : 47 14 35 degrees QTcB Int : 423 ms Sinus tachycardia with 2nd degree AV block (Mobitz I) with premature supraventricular complexes Septal infarct , age undetermined Abnormal ECG When compared with ECG of 20-Sep-2024 11:12, Sinus rhythm is now with 2nd degree AV block (Mobitz I) Septal infarct is now present Confirmed by Duke Kaufman DO ([id number]) on 10/06/2024 7:36:01 PM Referred By: Electronically Signed By: Duke Kaufman DO Transcribed By: MUS Signed By Duke Kaufman DO 5 1936 Normal [facility] Eosinophils Auto (Bld) [#/Vo l]Ordered By: PROVIDER TEMP on 10-06-2024 Eosinophils (Bld) [#/Vol] Automated eosinophil count 0.0-0.45 [facility] Eosinophils/100 WBC Auto (Bl d)Ordered By: PROVIDER TEMP on 10-06-2024 Eosinophils/100 WBC (Bld) Automated eosinophil % . [facility] Epithelial cells.squamous [# /area] in Urine sediment by Automated countOrdered By: Manisha Negron on 10-06-2024 Epithelial cells.squamous Auto (Urine sed) [#/Area] Epithelial cells.squamous [#/area] in Urine sediment by Automated count 0-2 [facility] Erythrocyte distribution wid th Auto (RBC) [Ratio]Ordered By: PROVIDER TEMP on 10-06-2024 Erythrocyte distribution width (RBC) [Ratio] Erythrocyte distribution width [Ratio] by Automated count 12.0-14.8 [facility] Erythrocytes [#/area] in Uri ne sediment by Automated countOrdered By: Manisha Negron on 10-06-2024 RBC Auto (Urine sed) [#/Area] Erythrocytes [#/area] in Urine sediment by Automated count 0-4 [facility] Globulin Calc (S) [Mass/Vol] Ordered By: PROVIDER TEMP on 10-06-2024 Globulin (S) [Mass/Vol] Serum globulin measurement by calculation (mass/volume) [facility] Glucose [Mass/volume] in Ser um or PlasmaOrdered By: PROVIDER TEMP on 10-06-2024 Glucose [Mass/Vol] Glucose [Mass/volume ] in Serum or Plasma 70-100 [facility] Comment on above: ADA recommended refe rence rangeRandom Glucose Reference Range is dependent on time and content of last meal. Glucose of more than 200 mg/dL in a nonstressed, ambulatory subject supports the diagnosis of Diabetes Mellitus. Glucose [Mass/volume] in Uri ne by Test stripOrdered By: Manisha Negron on 10-06-2024 Glucose Test strip (U) [Mass/Vol] Glucose [Mass/volume] in Urine by Test strip Normal [facility] Hematocrit Auto (Bld) [Volum e fraction]Ordered By: PROVIDER TEMP on 10-06-2024 Hematocrit (Bld) [Volume fraction] Hematocrit [Volume Fraction] of Blood by Automated count Low 38.8-50.0 [facility] Hemoglobin Test strip Ql (U) Ordered By: Manisha Negron on 10-06-2024 Hemoglobin Ql (U) Hemoglobin [Presence ] in Urine by Test strip High Negative [facility] Hemoglobin [Mass/volume] in BloodOrdered By: PROVIDER TEMP on 10-06-2024 Hemoglobin (Bld) [Mass/Vol] Hemoglobin [Mass/volume] in Blood Low 13.0-17.0 [facility] Hepatic Panelon 10-06-2024 Albumin [Mass/Vol] 3.6 g/dL Normal 3.5-5.7 [facility] Comment on above: Performed By: #### L IPASE, BMP, CBC, HEPATIC #### [facility] [address] [place] [address] [place] Albumin/Globulin [Mass ratio] 1.4 {ratio} Normal [facility] Comment on above: Performed By: #### L IPASE, BMP, CBC, HEPATIC #### [facility] [address] [place] [id number] [place] ALP [Catalytic activity/Vol] 63 U/L Normal 34-104 [facility] Comment on above: Performed By: #### L IPASE, BMP, CBC, HEPATIC #### [facility] [address] [place] [id number] [place] ALT [Catalytic activity/Vol] 7 U/L Normal 7-52 [facility] Comment on above: Performed By: #### L IPASE, BMP, CBC, HEPATIC #### [facility] [address] AST [Catalytic activity/Vol] 8 U/L Low 13-39 [facility] Comment on above: Performed By: #### L IPASE, BMP, CBC, HEPATIC #### [facility] [address] Bilirubin [Mass/Vol] 0.6 mg/dL Normal 0.3-1.0 [facility] Comment on above: Performed By: #### L IPASE, BMP, CBC, HEPATIC #### [facility] [address] Bilirubin,Indirect 0.5 mg/dL Normal [facility] Comment on above: Performed By: #### L IPASE, BMP, CBC, HEPATIC #### [facility] [address] Bilirubin.indirect [Mass/Vol] 0.10 mg/dL Normal 0.03-0.18 [facility] Comment on above: Performed By: #### L IPASE, BMP, CBC, HEPATIC #### [facility] [address] Globulin (S) [Mass/Vol] 2.5 g/dL Normal [facility] Comment on above: Performed By: #### L IPASE, BMP, CBC, HEPATIC #### [facility] [address] Protein [Mass/Vol] 6.1 g/dL Low 6.4-8.9 [facility] Comment on above: Performed By: #### L IPASE, BMP, CBC, HEPATIC #### [facility] [address] [place] [address] [place] Hyaline casts [#/area] in Ur ine sediment by Automated countOrdered By: Manisha Negron on 10-06-2024 Hyaline casts Auto (Urine sed) [#/Area] Hyaline casts [#/area] in Urine sediment by Automated count 0-8 [facility] Ketones Test strip Ql (U)Ord ered By: Manisha Negron on 10-06-2024 Ketones Ql (U) Ketones [Presence] i n Urine by Test strip Negative [facility] Leukocyte esterase [Presence ] in Urine by Test stripOrdered By: Manisha Negron on 10-06-2024 Leukocyte esterase Test strip Ql (U) Leukocyte esterase [Presence] in Urine by Test strip Negative [facility] Leukocytes [#/area] in Urine sediment by Automated countOrdered By: Manisha Negron on 10-06-2024 WBC Auto (Urine sed) [#/Area] Leukocytes [#/area] in Urine sediment by Automated count 0-4 [facility] Leukocytes [#/volume] correc mone for nucleated erythrocytes in Blood by Automated counOrdered By: PROVIDER TEMP on 10-06-2024 WBC corrected for nucl RBC Auto (Bld) [#/Vol] Leukocytes [#/volume] corrected for nucleated erythrocytes in Blood by Automated coun 4.1-10.5 [facility] Lipaseon 10-06-2024 Lipase [Catalytic activity/Vol] 11.0 U/L Normal 11.0-82.0 [facility] Comment on above: Result Comment: PERF ORMED BY: [place] [address] PATHOLOGIST RECEIVING DOCK CHECKER RAKEL LAZARO M.D. Performed By: #### L IPASE, BMP, CBC, HEPATIC #### [place] [address] [place] Lipase [Enzymatic activity/v olume] in Serum or PlasmaOrdered By: PROVIDER TEMP on 10-06-2024 Lipase [Catalytic activity/Vol] Lipase [Enzymatic activity/volume] in Serum or Plasma 11.0-82.0 [facility] Lymphocytes Auto (Bld) [#/Vo l]Ordered By: PROVIDER TEMP on 10-06-2024 Lymphocytes (Bld) [#/Vol] Lymphocytes [#/volume] in Blood by Automated count 1.00-4.8 [facility] Lymphocytes/100 WBC Auto (Bl d)Ordered By: PROVIDER TEMP on 10-06-2024 Lymphocytes/100 WBC (Bld) Lymphocytes/100 leukocytes in Blood by Automated count . [facility] MCH Auto (RBC) [Entitic mass ]Ordered By: PROVIDER TEMP on 10-06-2024 MCH (RBC) [Entitic mass] MCH [Entitic mass] by Automated count 27.5-35.2 [facility] MCHC Auto (RBC) [Mass/Vol]Or dered By: PROVIDER TEMP on 10-06-2024 MCHC (RBC) [Mass/Vol] MCHC [Mass/volume] by Automated count 32.5-35.6 [facility] MCV Auto (RBC) [Entitic vol] Ordered By: PROVIDER TEMP on 10-06-2024 MCV (RBC) [Entitic vol] MCV [Entitic volume] by Automated count 83.5-101 [facility] Monocyte distribution width [Entitic volume] in Blood by AutomatedOrdered By: PROVIDER TEMP on 10-06-2024 Monocyte distribution width Auto (Bld) [Entitic vol] Monocyte distribution width [Entitic volume] in Blood by Automated 0.00-20.00 [facility] Monocytes Auto (Bld) [#/Vol] Ordered By: PROVIDER TEMP on 10-06-2024 Monocytes (Bld) [#/Vol] Automated blood monocyte count 0.0-0.8 [facility] Monocytes/100 WBC Auto (Bld) Ordered By: PROVIDER TEMP on 10-06-2024 Monocytes/100 WBC (Bld) Automated monocyte % . [facility] Mucus [Presence] in Urine by AutomatedOrdered By: Manisha Negron on 10-06-2024 Mucus Auto Ql (U) Mucus [Presence] in Urine by Automated [facility] Neutrophils Auto (Bld) [#/Vo l]Ordered By: PROVIDER TEMP on 10-06-2024 Neutrophils (Bld) [#/Vol] Neutrophils [#/volume] in Blood by Automated count 1.8-7.7 [facility] Neutrophils/100 WBC Auto (Bl d)Ordered By: PROVIDER TEMP on 10-06-2024 Neutrophils/100 WBC (Bld) Automated neutrophil % . [facility] Nitrite Test strip Ql (U)Ord ered By: Manisha Negron on 10-06-2024 Nitrite Ql (U) Nitrite [Presence] i n Urine by Test strip Negative [facility] No Panel InformationOrdered By: PROVIDER TEMP on 10-06-2024 Estimated GFR (CKD-EPI) > 60.0 mL/Min [facility] Creatinine Clearance (Chem 91.52 [facility] Nucleated erythrocytes [Pres ence] in Blood by Automated countOrdered By: PROVIDER TEMP on 10-06-2024 Nucleated RBC Auto Ql (Bld) Nucleated erythrocytes [Presence] in Blood by Automated count 0-0.5 [facility] Platelet mean volume Auto (B ld) [Entitic vol]Ordered By: PROVIDER TEMP on 10-06-2024 Platelet mean volume (Bld) [Entitic vol] Platelet mean volume [Entitic volume] in Blood by Automated count 6.6-10.1 [facility] Platelets Auto (Bld) [#/Vol] Ordered By: PROVIDER TEMP on 10-06-2024 Platelets (Bld) [#/Vol] Platelets [#/volume] in Blood by Automated count 150-450 [facility] Potassium [Moles/volume] in Serum or PlasmaOrdered By: PROVIDER TEMP on 10-06-2024 Potassium [Moles/Vol] Potassium [Moles/v olume] in Serum or Plasma 3.5-5.1 [facility] Protein Test strip (U) [Mass /Vol]Ordered By: Manisha Negron on 10-06-2024 Protein (U) [Mass/Vol] Protein [Mass/vol ume] in Urine by Test strip Negative [facility] Protein [Mass/volume] in Ser um or PlasmaOrdered By: PROVIDER TEMP on 10-06-2024 Protein [Mass/Vol] Protein [Mass/volume ] in Serum or Plasma Low 6.4-8.9 [facility] RBC Auto (Bld) [#/Vol]Ordere d By: PROVIDER TEMP on 10-06-2024 RBC (Bld) [#/Vol] Erythrocytes [#/volu me] in Blood by Automated count 3.90-5.60 [facility] Serum or plasma albumin/glob ulin mass ratioOrdered By: PROVIDER TEMP on 10-06-2024 Albumin/Globulin [Mass ratio] Serum or plasma albumin/globulin mass ratio [facility] Serum or plasma anion gap de terminationOrdered By: PROVIDER TEMP on 10-06-2024 Anion gap [Moles/Vol] Serum or plasma an ion gap determination 6.0-15.0 [facility] Serum or plasma non-glucuron idated bilirubin measurement (mass/volume)Ordered By: PROVIDER TEMP on 10-06-2024 Bilirubin.indirect [Mass/Vol] Serum or plasma non-glucuronidated bilirubin measurement (mass/volume) [facility] Sodium [Moles/volume] in Ser um or PlasmaOrdered By: PROVIDER TEMP on 10-06-2024 Sodium [Moles/Vol] Sodium [Moles/volume ] in Serum or Plasma 136-145 [facility] Specific gravity Test strip (U) [Rel density]Ordered By: Manisha Negron on 10-06-2024 Specific gravity (U) [Rel density] Specific gravity of Urine by Test strip High 1.001-1.03 0 [facility] Urea nitrogen [Mass/volume] in Serum or PlasmaOrdered By: PROVIDER TEMP on 10-06-2024 Urea nitrogen [Mass/Vol] Urea nitrogen [Mass/volume] in Serum or Plasma 7-25 [facility] Urobilinogen Test strip (U) [Mass/Vol]Ordered By: Manisha Negron on 10-06-2024 Urobilinogen (U) [Mass/Vol] Urobilinogen [Mass/volume] in Urine by Test strip Normal [facility] WBC Auto (Bld) [#/Vol]Ordere d By: PROVIDER TEMP on 10-06-2024 WBC (Bld) [#/Vol] Leukocytes [#/volume ] in Blood by Automated count 4.1-10.5 [facility] pH Test strip (U)Ordered By: Manisha Negron on 10-06-2024 pH (U) pH of Urine by Test strip 5.0-9.0 [facility] B-Type Natriuretic Peptideon 09-20-2024 Natriuretic peptide B (Bld) [Mass/Vol] 43.0 pg/mL Normal 5-100 [facility] Comment on above: Result Comment: PERF ORMED BY: [facility] [address] [place] [address] PATHOLOGIST RECEIVING DOCK CHECKER RAKEL LAZARO M.D. Performed By: #### H S TROP #### [address] Basic Metabolic Panelon 04-0 Anion gap [Moles/Vol] 11.2 mmol/L Normal 6.0-15.[address] [facility] Comment on above: Performed By: #### C BC, BNP, BMP, HS TROP #### [address] Calcium [Mass/Vol] 9.3 mg/dL Normal 8.6-10.3 [facility] Comment on above: Performed By: #### C BC, BNP, BMP, HS TROP #### [address] Chloride [Moles/Vol] 100 mmol/L Normal 98-107 [facility] Comment on above: Performed By: #### C BC, BNP, BMP, HS TROP #### [address] CO2 [Moles/Vol] 26.0 mmol/L Normal 21.0-31.0 [facility] Comment on above: Performed By: #### C BC, BNP, BMP, HS TROP #### [address] Creatinine [Mass/Vol] 0.91 mg/dL Normal 0.70-1.30 [facility] Comment on above: Performed By: #### C BC, BNP, BMP, HS TROP #### [address] Creatinine Clr Calc Pharmacy 82.47 Normal [facility] Comment on above: Result Comment: PERF ORMED BY: [place] [address] PATHOLOGIST RECEIVING DOCK CHECKER RAKEL LAZARO M.D. Performed By: #### C BC, BNP, BMP, HS TROP #### [address] GFR/1.73 sq M.predicted MDRD (S/P/Bld) [Vol rate/Area] mL/min/{1.73_m2} Normal [facility] Comment on above: Performed By: #### C BC, BNP, BMP, HS TROP #### [address] Glucose [Mass/Vol] 100 mg/dL Normal 70-100 [facility] Comment on above: Result Comment: [facility] Glucose Reference Range is dependent on time and content of last meal. Glucose of more than 200 mg/dL in a nonstressed, ambulatory subject supports the diagnosis of Diabetes Mellitus. ADA recommended reference range Performed By: #### C BC, BNP, BMP, HS TROP #### [address] Potassium [Moles/Vol] 4.2 mmol/L Normal 3.5-5.1 [facility] Comment on above: Performed By: #### C BC, BNP, BMP, HS TROP #### [address] Sodium [Moles/Vol] 133 mmol/L Low 136-145 [facility] Comment on above: Performed By: #### C BC, BNP, BMP, HS TROP #### [address] Urea nitrogen [Mass/Vol] 18 mg/dL Normal 7-25 [facility] Comment on above: Performed By: #### C BC, BNP, BMP, HS TROP #### [place] [address] [place] Basophils Auto (Bld) [#/Vol] Ordered By: Daisy Paul on 09-20-2024 Basophils (Bld) [#/Vol] Automated basophil count 0.0-0.[address] [facility] Basophils/100 WBC Auto (Bld) Ordered By: Daisy Paul on 09-20-2024 Basophils/100 WBC (Bld) Automated basophil % . [facility] [employer] Not Detectedon 09-20 BioFire Not Detected Not detected Normal Not Detecte [facility] Comment on above: Result Comment: This is a duplicate RP2.1 COVID (PCR) result to be used for statistical tracking purpose only. PERFORMED BY: [facility] [address] [place] [address] PATHOLOGIST RECEIVING DOCK CHECKER RAKEL LAZARO M.D. Performed By: #### H S TROP #### [facility] [address] [place] [address] [facility] COVID-19 Detected/Not Detect edOrdered By: Daisy Paul on 09-20-2024 SARS-CoV-2 (COVID-19) RNA JER+non-probe Ql (Nph) Not detected Not Detecte [facility] Comment on above: This is a duplicate RP2.1 COVID (PCR) result to be used for statistical tracking purpose only. Calcium [Mass/volume] in Ser um or PlasmaOrdered By: Daisy Paul on 09-20-2024 Calcium [Mass/Vol] Calcium [Mass/volume ] in Serum or Plasma 8.6-10.3 [facility] Carbon dioxide, total [Moles /volume] in Serum or PlasmaOrdered By: Daisy Paul on 09-20-2024 CO2 [Moles/Vol] Carbon dioxide, tota l [Moles/volume] in Serum or Plasma 21.0-31.0 [facility] Chloride [Moles/volume] in [place] r[place] or PlasmaOrdered By: Daisy Paul on 09-20-2024 Chloride [Moles/Vol] Chloride [Moles/vol ume] in Serum or Plasma 98-107 [facility] Complete Blood Count Auto Di ffon 09-20-2024 Basophils (Bld) [#/Vol] 0.0 10*3/uL Normal 0.0-0.2 [facility] Comment on above: Result Comment: PERF ORMED BY: [facility] [address] [place] [address] PATHOLOGIST RECEIVING DOCK CHECKER RAKEL LAZARO M.D. Performed By: #### C BC, BNP, BMP, HS TROP #### [facility] [address] [place] [address] [facility] Basophils/100 WBC (Bld) 0.5 % Normal . [facility] Comment on above: Performed By: #### C BC, BNP, BMP, HS TROP #### [address] Eosinophils (Bld) [#/Vol] 0.0 10*3/uL Normal 0.0-0.45 [facility] Comment on above: Performed By: #### C BC, BNP, BMP, HS TROP #### [address] Eosinophils/100 WBC (Bld) 0.1 % Normal . [facility] Comment on above: Performed By: #### C BC, BNP, BMP, HS TROP #### [address] Erythrocyte distribution width (RBC) [Ratio] 13.9 % Normal 12.0-14.8 [facility] Comment on above: Performed By: #### C BC, BNP, BMP, HS TROP #### [address] Hematocrit (Bld) [Volume fraction] 41.1 % Normal 38.8-50.0 [facility] Comment on above: Performed By: #### C BC, BNP, BMP, HS TROP #### [address] Hemoglobin (Bld) [Mass/Vol] 14.1 g/dL Normal 13.0-17.0 [facility] Comment on above: Performed By: #### C BC, BNP, BMP, HS TROP #### [address] Lymphocytes (Bld) [#/Vol] 1.1 10*3/uL Normal 1.00-4.8 [facility] Comment on above: Performed By: #### C BC, BNP, BMP, HS TROP #### [address] Lymphocytes/100 WBC (Bld) 11.5 % Normal . [facility] Comment on above: Performed By: #### C BC, BNP, BMP, HS TROP #### [address] MCH (RBC) [Entitic mass] 32.1 pg Normal 27.5-35.2 [facility] Comment on above: Performed By: #### C BC, BNP, BMP, HS TROP #### [address] MCV (RBC) [Entitic vol] 93.6 fL Normal 83.5-101 [facility] Comment on above: Performed By: #### C BC, BNP, BMP, HS TROP #### [address] Mean Corpuscular HGB Conc 34.3 g/dL Normal 32.5-35.6 [facility] Comment on above: Performed By: #### C BC, BNP, BMP, HS TROP #### [address] Monocytes (Bld) [#/Vol] 0.5 10*3/uL Normal 0.0-0.8 [facility] Comment on above: Performed By: #### C BC, BNP, BMP, HS TROP #### [address] Monocytes/100 WBC (Bld) 23.57 % High 0.00-20.00 [facility] Comment on above: Result Comment: For adults in ED, MDW > 20.0 may be associated with a higher risk of sepsis during the first 12 hrs of hospital admission Performed By: #### C BC, BNP, BMP, HS TROP #### [address] Monocytes/100 WBC (Bld) 5.4 % Normal . [facility] Comment on above: Performed By: #### C BC, BNP, BMP, HS TROP #### [address] Neutrophils (Bld) [#/Vol] 8.1 10*3/uL High 1.8-7.7 [facility] Comment on above: Performed By: #### C BC, BNP, BMP, HS TROP #### [address] Neutrophils/100 WBC (Bld) 82.5 % Normal . [facility] Comment on above: Performed By: #### C BC, BNP, BMP, HS TROP #### [facility] [address] NRBC% 0.1 /100{WBC} Normal 0-0.5 [facility] Comment on above: Performed By: #### C BC, BNP, BMP, HS TROP #### [facility] [address] Platelet mean volume (Bld) [Entitic vol] 8.9 fL Normal 6.6-10.[address] [facility] Comment on above: Performed By: #### C BC, BNP, BMP, HS TROP #### [place] [address] [place] Platelets (Bld) [#/Vol] 215 10*3/uL Normal 150-450 [facility] Comment on above: Performed By: #### C BC, BNP, BMP, HS TROP #### [place] [address] [place] RBC (Bld) [#/Vol] 4.39 10*6/uL Normal 3.90-5.60 [facility] Comment on above: Performed By: #### C BC, BNP, BMP, HS TROP #### [place] [address] [place] WBC (Bld) [#/Vol] 9.8 10*3/uL Normal 4.1-10.5 [facility] Comment on above: Performed By: #### C BC, BNP, BMP, HS TROP #### [place] [address] [place] Creatinine [Mass/volume] in Serum or PlasmaOrdered By: Daisy Paul on 09-20-2024 Creatinine [Mass/Vol] Creatinine [Mass/v olume] in Serum or Plasma 0.70-1.30 [facility] ECG 12 lead ECGon 09-20-2024 ECG 12 lead ECG [facility] [address] [place] [address] Electrocardiograph Report Signed Patient: Jovani Melendez MR#: [id number] : 1960 Acct:[id number] Age/Sex: 63 / M ADM Date: 09/20/24 Loc: ER Room: Type: [facility] ER Attending Dr: Ordering Provider: Daisy Paul MD Date of Service: 09/20/2411/09/1122 ECG/ECG 12 lead ECG: Shortness of Breath/Dyspnea Copies to: Test Reason : Blood Pressure : 118/61 mmHG Vent. Rate : 95 BPM Atrial Rate : 95 BPM P-R Int : 236 ms QRS Dur : 80 ms QT Int : 346 ms P-R-T Axes : 82 31 52 degrees QTcB Int : 434 ms Sinus rhythm with 1st degree AV block with premature supraventricular complexes Nonspecific T wave abnormality Confirmed by aDisy Paul MD ([id number]) on 09/20/2024 7:46:03 PM Referred By: Electronically Signed By: Daisy Paul MD Transcribed By: MUS Signed By Daisy Paul MD 11/09 Normal [facility] Eosinophils Auto (Bld) [#/Vo l]Ordered By: Daisy Paul on 09-20-2024 Eosinophils (Bld) [#/Vol] Automated eosinophil count 0.0-0.45 [facility] Eosinophils/100 WBC Auto (Bl d)Ordered By: Daisy Paul on 09-20-2024 Eosinophils/100 WBC (Bld) Automated eosinophil % . [facility] Erythrocyte distribution wid th Auto (RBC) [Ratio]Ordered By: Daisy Paul on 09-20-2024 Erythrocyte distribution width (RBC) [Ratio] Erythrocyte distribution width [Ratio] by Automated count 12.0-14.8 [facility] Glucose [Mass/volume] in Ser um or PlasmaOrdered By: Daisy Paul on 09-20-2024 Glucose [Mass/Vol] Glucose [Mass/volume ] in Serum or Plasma 70-100 [facility] Comment on above: ADA recommended refe rence rangeRandom Glucose Reference Range is dependent on time and content of last meal. Glucose of more than 200 mg/dL in a nonstressed, ambulatory subject supports the diagnosis of Diabetes Mellitus. Hematocrit Auto (Bld) [Volum e fraction]Ordered By: Daisy Paul on 09-20-2024 Hematocrit (Bld) [Volume fraction] Hematocrit [Volume Fraction] of Blood by Automated count 38.8-50.0 [facility] Hemoglobin [Mass/volume] in BloodOrdered By: Daisy Paul on 09-20-2024 Hemoglobin (Bld) [Mass/Vol] Hemoglobin [Mass/volume] in Blood 13.0-17.0 [facility] Leukocytes [#/volume] correc mone for nucleated erythrocytes in Blood by Automated counOrdered By: Daisy Paul on 09-20-2024 WBC corrected for nucl RBC Auto (Bld) [#/Vol] Leukocytes [#/volume] corrected for nucleated erythrocytes in Blood by Automated coun 4.1-10.5 [facility] Lymphocytes Auto (Bld) [#/Vo l]Ordered By: Daisy Paul on 09-20-2024 Lymphocytes (Bld) [#/Vol] Lymphocytes [#/volume] in Blood by Automated count 1.00-4.8 [facility] Lymphocytes/100 WBC Auto (Bl d)Ordered By: Daisy Paul on 09-20-2024 Lymphocytes/100 WBC (Bld) Lymphocytes/100 leukocytes in Blood by Automated count . [facility] MCH Auto (RBC) [Entitic mass ]Ordered By: Daisy Paul on 09-20-2024 MCH (RBC) [Entitic mass] MCH [Entitic mass] by Automated count 27.5-35.2 [facility] MCHC Auto (RBC) [Mass/Vol]Or dered By: Daisy Paul on 09-20-2024 MCHC (RBC) [Mass/Vol] MCHC [Mass/volume] by Automated count 32.5-35.6 [facility] MCV Auto (RBC) [Entitic vol] Ordered By: Daisy Paul on 09-20-2024 MCV (RBC) [Entitic vol] MCV [Entitic volume] by Automated count 83.5-101 [facility] Monocyte distribution width [Entitic volume] in Blood by AutomatedOrdered By: Daisy Paul on 09-20-2024 Monocyte distribution width Auto (Bld) [Entitic vol] Monocyte distribution width [Entitic volume] in Blood by Automated High 0.00-20.00 [facility] Comment on above: For adults in ED, MD W > 20.0 may be associated with a higher risk of sepsis during the first 12 hrs of hospital admission Monocytes Auto (Bld) [#/Vol] Ordered By: Daisy Paul on 09-20-2024 Monocytes (Bld) [#/Vol] Automated blood monocyte count 0.0-0.8 [facility] Monocytes/100 WBC Auto (Bld) Ordered By: Daisy Paul on 09-20-2024 Monocytes/100 WBC (Bld) Automated monocyte % . [facility] Natriuretic peptide B [Mass/ Vol]Ordered By: Daisy Paul on 09-20-2024 Natriuretic peptide B (Bld) [Mass/Vol] BNP ser/plas 5-100 [facility] Neutrophils Auto (Bld) [#/Vo l]Ordered By: Daisy Paul on 09-20-2024 Neutrophils (Bld) [#/Vol] Neutrophils [#/volume] in Blood by Automated count High 1.8-7.7 [facility] Neutrophils/100 WBC Auto (Bl d)Ordered By: Daisy Paul on 09-20-2024 Neutrophils/100 WBC (Bld) Automated neutrophil % . [facility] No Panel InformationOrdered By: Daisy Paul on 09-20-2024 Estimated GFR (CKD-EPI) > 60.0 mL/Min [facility] Creatinine Clearance (Chem 82.47 [facility] Nucleated erythrocytes [Pres ence] in Blood by Automated countOrdered By: Daisy Paul on 09-20-2024 Nucleated RBC Auto Ql (Bld) Nucleated erythrocytes [Presence] in Blood by Automated count 0-0.5 [facility] Platelet mean volume Auto (B ld) [Entitic vol]Ordered By: Daisy aPul on 09-20-2024 Platelet mean volume (Bld) [Entitic vol] Platelet mean volume [Entitic volume] in Blood by Automated count 6.6-10.1 [facility] Platelets Auto (Bld) [#/Vol] Ordered By: Daisy Paul on 09-20-2024 Platelets (Bld) [#/Vol] Platelets [#/volume] in Blood by Automated count 150-450 [facility] Potassium [Moles/volume] in Serum or PlasmaOrdered By: Daisy Paul on 09-20-2024 Potassium [Moles/Vol] Potassium [Moles/v olume] in Serum or Plasma 3.5-5.1 [facility] RBC Auto (Bld) [#/Vol]Ordere d By: Daisy Paul on 09-20-2024 RBC (Bld) [#/Vol] Erythrocytes [#/volu me] in Blood by Automated count 3.90-5.60 [facility] Respiratory (Upper) Panel, P CRon 09-20-2024 Respiratory (Upper) Panel, PCR Adenovirus Not detected [...] A H3 Blank Space ---- PERFORMED BY: [address] [address] PATHOLOGIST RECEIVING DOCK CHECKER RAKEL LAZARO M.D. Normal [facility] Comment on above: Performed By: #### H S TROP #### [facility] [address] Respiratory pathogens DNA an d RNA panel - Nasopharynx by JER with non-probe detectionOrdered By: Daisy Paul on 09-20-2024 Respiratory pathogens DNA and RNA panel JER+non-probe (Nph) Respiratory pathogens DNA and RNA panel - Nasopharynx by JER with non-probe detection [facility] Serum or plasma anion gap de terminationOrdered By: Daisy Paul on 09-20-2024 Anion gap [Moles/Vol] Serum or plasma an ion gap determination 6.0-15.0 [facility] Sodium [Moles/volume] in Ser um or PlasmaOrdered By: Daisy Paul on 09-20-2024 Sodium [Moles/Vol] Sodium [Moles/volume ] in Serum or Plasma Low 136-145 [facility] Troponin I High Sensitivityo n 09-20-2024 Troponin I High Sensitivity 8 Normal 0-20 [facility] Comment on above: Result Comment: The Troponin units of report have been changed to meet the Chest Pain Accreditation requirement, element EC5.M1l2. Troponin units are changed from pg/ml to ng/L. Also, the decimal is removed and results are in whole numbers. PERFORMED BY: [place] [address] PATHOLOGIST RECEIVING DOCK CHECKER RAKEL LAZARO M.D. Performed By: #### H S TROP #### [address] Troponin I High Sensitivity 8 Normal 0-20 [facility] Comment on above: Result Comment: The Troponin units of report have been changed to meet the Chest Pain Accreditation requirement, element EC5.M1l2. Troponin units are changed from pg/ml to ng/L. Also, the decimal is removed and results are in whole numbers. PERFORMED BY: [place] [address] PATHOLOGIST RECEIVING DOCK CHECKER RAKEL LAZARO M.D. Performed By: #### C BC, BNP, BMP, HS TROP #### [address] Troponin I.cardiac [Mass/vol ume] in Serum or Plasma by Detection limit <= 0.01 ng/Ordered By: Daisy Paul on 09-20-2024 Troponin I.cardiac DL <= 0.01 ng/mL [Mass/Vol] Troponin I.cardiac [Mass/volume] in Serum or Plasma by Detection limit <= 0.01 ng/ 0-20 [facility] Comment on above: The Troponin units o f report have been changed to meet the Chest Pain Accreditation requirement, element EC5.M1l2. Troponin units are changed from pg/ml to ng/L. Also, the decimal is removed and results are in whole numbers. Urea nitrogen [Mass/volume] in Serum or PlasmaOrdered By: Daisy Paul on 09-20-2024 Urea nitrogen [Mass/Vol] Urea nitrogen [Mass/volume] in Serum or Plasma 01-09 [facility] WBC Auto (Bld) [#/Vol]Ordere d By: Daisy Paul on 09-20-2024 WBC (Bld) [#/Vol] Leukocytes [#/volume ] in Blood by Automated count 4.1-10.5 [facility] X-ray reportOrdered By: Rex Hutchins on 09-20-2024 Study report [facility] [address] [place] [address] XRay Report Signed Patient: Jovani Melendez MR#: [id number] : 1960 Acct:[id number] Age/Sex: 63 / M ADM Date: 5 Loc: ER Room: Type: [facility] ER Attending Dr: Copies to: Daisy Paul MD~ Ordering Provider: Daisy Paul MD Date of Service: 09/20/24 XR/XR chest 2V*: Shortness of Breath/Dyspnea PA AND LATERAL CHEST: CLINICAL HISTORY: Shortness breath and weakness, body aches: COMPARISON: 10/09/2023 FINDINGS: Unremarkable cardiomediastinal silhouette. Right lung is clear. Minimal parenchymal opacity left lung base likely within the region of the lingula . Noeffusion or pneumothorax. XR/XR chest 2V* IMPRESSION: LINGULAR OPACITY POSSIBLE ATYPICAL PNEUMONIA OR ATELECTASIS, CONSIDER FOLLOW-UPTO RESOLUTION Impression dictated by: Gee Hutchins M.D.09/20/2024 12:47 PM Dictation Location: RADIO-PC-29 Transcribed By: MARISA 09/20/24 1247 Dictated By: Gee Hutchins MD 09/20/241244 Signed By: 09/20/24 1247 [facility] Work Phone: XR chest 2V*on 09-20-2024 XR chest 2V* [facility] [address] [place] [address] XRay Report Signed Patient: Jovani Melendez MR#: [id number] : 1960 Acct:[id number] Age/Sex: 63 / M ADM Date: 09/20/24 Loc: ER Room: Type: [facility] Attending Dr: Copies to: Daisy Paul MD Ordering Provider: Daisy Paul MD Date of Service: 09/20/24 XR/XR chest 2V*: Shortness of Breath/Dyspnea PA AND LATERAL CHEST: CLINICAL HISTORY: Shortness breath and weakness, body aches: COMPARISON: 10/09/2023 FINDINGS: Unremarkable cardiomediastinal silhouette. Right lung is clear. Minimal parenchymal opacity left lung base likely within the region of the lingula . No effusion or pneumothorax. XR/XR chest 2V* IMPRESSION: LINGULAR OPACITY POSSIBLE ATYPICAL PNEUMONIA OR ATELECTASIS, CONSIDER FOLLOW-UP TO RESOLUTION Impression dictated by: Gee Hutchins M.D.09/20/2024 12:47 PM Dictation Location: RADIO-PC-29 Transcribed By: MARISA 09/20/24 1247 Dictated By: Gee Hutchins MD 09/20/241244 Signed By: 09/20/24 1247 Normal [facility] US ankle/arm indiceson 09-16 US ankle/arm indices [facility] [address] [place] [address] Ultrasound Report Signed Patient: Jovani Melendez MR#: [id number] : 1960 Acct:[id number] Age/Sex: 63 / M ADM Date: 09/11/24 Loc: [facility] Room: Type: DEP CLI Attending Dr: Ruddy Harvey MD Ordering Provider: Ruddy Harvey MD Date of Service: 09/11/24 US/US ankle/arm indices: I73.9 - Peripheral vascular disease, unspecified Copies to: Ruddy Harvey MD LOWER EXTREMITY SEGMENTAL ARTERIAL DOPSCAN (PVR) INDICATION: Known peripheral vascular occlusive disease PROCEDURE: Right arm blood pressure is 133 , left is 138 . Pressures at the right ankle are 136 using the posterior tibial artery, and 124 using the dorsalis pedis artery with ankle-brachial index of 0.99 0.90 . Pressures at the left ankle are 162 using the posterior tibial artery, and 152 with ankle-brachial index of 1.17 1.10 . Wave forms by plethysmography are normal. US/US ankle/arm indices IMPRESSION: NO HEMODYNAMICALLY SIGNIFICANT PERIPHERAL VASCULAR OCCLUSIVE DISEASE AT REST IN EITHER LOWER EXTREMITY. Impression dictated by: Filipe Hess M.D.09/16/2024 2:46 PM Dictation Location: [place] [address] Tech: Agueda Helm Transcribed By: MARISA 09/16/24 1446 Dictated By: Filipe Hess MD 09/16/24 1445 Signed By: 09/16/24 1446 Normal [facility] X-ray reportOrdered By: Yehuda Pozo on 06-24-2024 Study report [facility] [place] [address] XRay Report Signed Patient: Jovani Melendez MR#: [id number] : 1960 Acct:[id number] Age/Sex: 63 / M ADM Date: 5 Loc: XD Room: Type: [facility] CLI Attending Dr: Solomon DIETRICHC Copies to: Solomon Narayanan PAC~ Ordering Provider: Solomon Narayanan PAC Date of [...] Pozo Jr, DO 06/24/242005 Signed By: 06/24/242007 [facility] XR cervical spine LAT/FLX/EX Ton 06-24-2024 XR cervical spine LAT/FLX/EXT [facility] [address] [place] [address] XRay Report Signed Patient: Jovani Melendez MR#: [id number] : 1960 Acct:[id number] Age/Sex: 63 / M ADM Date: 06/24/24 Loc: XD Room: Type: [facility] Attending Dr: Solomon Narayanan PA-C Copies to: [...] DO 06/24/242005 Signed By: 06/24/242007 Normal [facility] Basic metabolic 2000 panelon 04-10-2024 Anion gap [Moles/Vol] 14 mmol/L 10 - 2 0 mmol/L [facility] Calcium [Mass/Vol] 9 mg/dL 8.6 - 10. 6 mg/dL [facility] Chloride [Moles/Vol] 103 mmol/L 98 - 10 7 mmol/L [facility] CO2 [Moles/Vol] 26 mmol/L 21 - 32 mmol/L [facility] Creatinine [Mass/Vol] 0.86 mg/dL 0.50 - 1.30 mg/dL [facility] eGFR - PINF [facility] Comment on above: Calculations of sandra mated GFR are performed using the 2020 CKD-EPI Study Refit equation without the race variable for the IDMS-Traceable creatinine methods. https://jasn.asnjournals.org/content//ASN.01478 19773 Glucose [Mass/Vol] 159 mg/dL High 74 - 99 mg/dL [facility] Interpretation and review of laboratory results Abnormal [facility] Potassium [Moles/Vol] 4.5 mmol/L 3.5 - 5.3 mmol/L [facility] Sodium [Moles/Vol] 138 mmol/L 136 - 145 mmol/L [facility] Urea nitrogen [Mass/Vol] 14 mg/dL 6 - 23 mg/dL [facility] Anion gap [Moles/Vol] 14 mmol/L Normal 10-20 [facility] Comment on above: Performed By: #### 5 7021-8 #### TITUS Mercado ([id number]) [facility] ([facility]) [id number] [place] [address] Calcium [Mass/Vol] 9.0 mg/dL Normal 8.6-10.6 [facility] Comment on above: Performed By: #### 5 7021-8 #### TITUS Mercado ([id number]) [facility] ([facility]) [id number] [place] [address] Chloride [Moles/Vol] 103 mmol/L Normal 98-107 [facility] Comment on above: Performed By: #### 5 7021-8 #### TITUS Mercado ([id number]) [facility] ([facility]) [address] [place] [address] CO2 [Moles/Vol] 26 mmol/L Normal 21-32 [facility] Comment on above: Performed By: #### 5 7021-8 #### TITUS Mercado ([id number]) [facility] ([facility]) [address] [place] [address] Creatinine [Mass/Vol] 0.86 mg/dL Normal 0.50-1.30 [facility] Comment on above: Performed By: #### 5 7021-8 #### TITUS Mercado ([id number]) [facility] ([facility]) [address] [place] [address] GFR/1.73 sq M.predicted MDRD (S/P/Bld) [Vol rate/Area] mL/min/{1.73_m2} Normal >60 [facility] Comment on above: Result Comment: Calc ulations of estimated GFR are performed using the 2020 CKD-EPI Study Refit equation without the race variable for the IDMS-Traceable creatinine methods. https://jasn.asnjournals.org/content/early//ASN.39559 56094 Performed By: #### 5 7021-8 #### TITUS Mercado ([id number]) [facility] ([facility]) [address] [place] [address] Glucose [Mass/Vol] 159 mg/dL High 74-99 [facility] Comment on above: Performed By: #### 5 7021-8 #### TITUS Mercado ([id number]) [facility] ([facility]) [address] [place] [address] Potassium [Moles/Vol] 4.5 mmol/L Normal 3.5-5.3 [facility] Comment on above: Performed By: #### 5 7021-8 #### TITUS Mercado ([id number]) [facility] ([facility]) [address] [place] [address] Sodium [Moles/Vol] 138 mmol/L Normal 136-145 [facility] Comment on above: Performed By: #### 5 7021-8 #### TITUS Mercado ([id number]) [facility] ([facility]) [id number] [place] [address] Urea nitrogen [Mass/Vol] 14 mg/dL Normal 6-23 [facility] Comment on above: Performed By: #### 5 7021-8 #### TITUS Mercado ([id number]) [facility] ([facility]) [id number] [place], [place] [id number] CBC panel Auto (Bld)on 04-10 Erythrocyte distribution width (RBC) [Ratio] 13.3 % 11.5 - 14.5 % [facility] Hematocrit (Bld) [Volume fraction] 38 % Low 41.0 - 52.0 % [facility] Hemoglobin (Bld) [Mass/Vol] 12.9 g/dL Low 13.5 - 17.5 g/dL [facility] Interpretation and review of laboratory results Abnormal [facility] MCH (RBC) [Entitic mass] 31.9 pg 26.0 - 34.0 pg [facility] MCHC (RBC) [Mass/Vol] 33.9 g/dL 32.0 - 36.0 g/dL [facility] MCV (RBC) [Entitic vol] 94 fL 80 - 100 fL [facility] Nucleated RBC/100 WBC (Bld) [Ratio] 0 % [facility] Platelets (Bld) [#/Vol] 221 10*3/uL [facility] RBC (Bld) [#/Vol] 4.05 10*6/uL Low [facility] WBC (Bld) [#/Vol] 9.6 10*3/uL [facility] Erythrocyte distribution width (RBC) [Ratio] 13.3 % Normal 11.5-14.5 [facility] Comment on above: Performed By: #### 5 7021-8 #### TITUS Mercado ([id number]) [facility] ([facility]) [address] [place] [address] Hematocrit (Bld) [Volume fraction] 38.0 % Low 41.0-52.0 [facility] Comment on above: Performed By: #### 5 7021-8 #### TITUS Mercado ([id number]) [facility] ([facility]) [address] [place] [address]87[address] Hemoglobin (Bld) [Mass/Vol] 12.9 g/dL Low 13.5-17.5 [facility] Comment on above: Performed By: #### 5 7021-8 #### TITUS Mercado ([id number]) [facility] ([facility]) [address] [place] [address] 38486 MCH (RBC) [Entitic mass] 31.9 pg Normal 26.0-34.0 [facility] Comment on above: Performed By: #### 5 7021-8 #### TITUS Mercado ([id number]) [facility] ([facility]) [address] [place] [address] 21449 MCHC (RBC) [Mass/Vol] 33.9 g/dL Normal 32.0-36.0 [facility] Comment on above: Performed By: #### 5 7021-8 #### TITUS Mercado ([id number]) [facility] ([facility]) [address] [place] [address] 64919 MCV (RBC) [Entitic vol] 94 fL Normal 80-100 [facility] Comment on above: Performed By: #### 5 7021-8 #### TITUS Mercado ([id number]) [facility] ([facility]) [address] [place] [address] 25737 Nucleated RBC/100 WBC (Bld) [Ratio] 0.0 /100 WBCs Normal 0.0-0.0 [facility] Comment on above: Performed By: #### 5 7021-8 #### TITUS Mercado ([id number]) [facility] ([facility]) [address] [place] [address] 34102 Platelets (Bld) [#/Vol] 221 x10*3/uL Normal 150-450 [facility] Comment on above: Performed By: #### 5 7021-8 #### TITUS SCHUYLERMOTZER L ([id number]) [facility] ([facility]) [address] [place] [address] RBC (Bld) [#/Vol] 4.05 x10*6/uL Low 4.50-5.90 [facility] Comment on above: Performed By: #### 5 7021-8 #### TITUS SCHMOTZER L ([id number]) [facility] ([facility]) [address] [place] [address] WBC (Bld) [#/Vol] 9.6 x10*3/uL Normal 4.4-11.3 [facility] Comment on above: Performed By: #### 5 7021-8 #### TITUS SCHMOTZER L ([id number]) [facility] ([facility]) [address] [place] [address] XR CERVICAL SPINE 2-3 VIEWSo n 04-10-2024 XR CERVICAL SPINE 2-3 VIEWS Interpreted By: Shubham Eubanks, STUDY: Cervical spine dated 04/10/2024. INDICATION: Signs/Symptoms:Post surgery COMPARISON: None. ACCESSION NUMBER(S): [id number] ORDERING CLINICIAN: CAMILLE HARRIS TECHNIQUE: Two views [...] Shubham Eubanks 04/10/2024 10:05 AM Dictation workstation: [id number] [facility] Comment on above: Order Comment: Pleas e have patient upright XR Cervical spine 2 or 3 Vie wson 04-10-2024 Surgical and degener ative change as above without osseous injury evident. MACRO: None Signed by: Shubham Eubanks 04/10/2024 10:05 AM Dictation workstation: [id number] [facility] Interpreted By: Shubham Curran, STUDY: Cervical spine dated 04/10/2024. INDICATION: Signs/Symptoms:Post surgery COMPARISON: None. ACCESSION NUMBER(S): [id number] ORDERING CLINICIAN: CAMILLE HARRIS TECHNIQUE: Two views [...] INDICATION: Signs/Symptoms:Post surgery COMPARISON: None. ACCESSION NUMBER(S): [id number] ORDERING CLINICIAN: CAMILLE HARRIS TECHNIQUE: Two views [...] Shubham Eubanks 04/10/2024 10:05 AM Dictation workstation: [id number] [facility] Work Phone: Radiology Study observation (narrative) [facility] Work Phone: XR Cervical spine 2 or 3 Vie wsOrdered By: Shubham Eubanks on 04-10-2024 [facility] Work Phone: Blood type and Indirect anti body screen panel (Bld)on 04-09-2024 ABO group Nom (Bld) A [facility] Blood group antibody screen Ql Negative [facility] D Ag Ql (Bld) Positive [facility] ABO group Nom (Bld) A Normal [facility] Comment on above: Order Comment: As ne eded for scheduled for aortic, liver, cardiac, or thoracic surgery OR hgb<7.5mg/dl and no active type and screen. Performed By: #### 5 7021-8 #### TITUS Mercado ([id number]) [facility] ([facility]) [address] [place] [address] Blood group antibody screen Ql Negative [facility] Comment on above: Order Comment: As ne eded for scheduled for aortic, liver, cardiac, or thoracic surgery OR hgb<7.5mg/dl and no active type and screen. Performed By: #### 5 7021-8 #### TITUS Mercado ([id number]) [facility] ([facility]) [address] [place], [place] [address] D Ag Ql (Bld) Positive [facility] Comment on above: Order Comment: As ne eded for scheduled for aortic, liver, cardiac, or thoracic surgery OR hgb<7.5mg/dl and no active type and screen. Performed By: #### 5 7021-8 #### TITUS Mercado ([id number]) [facility] ([facility]) [address] [place], [place] [address] FL FLUORO IMAGES NO CHARGEon 04-09-2024 FL FLUORO IMAGES NO CHARGE These images are not reportable by radiology and will not be interpreted by Radiologists. Normal [facility] Gas and Carbon monoxide and Electrolytes panel (BldA)on 04-09-2024 Anion gap 4 (BldA) [Moles/Vol] 8 Low [facility] Base excess Calc (Bld) [Moles/Vol] -1.9000 mmol/L -2.0 - 3.0 mmol/L [facility] Calcium.ionized (BldA) [Moles/Vol] 1.24 mmol/L 1.10 - 1.33 mmol/L [facility] Chloride (BldA) [Moles/Vol] 104 mmol/L 98 - 107 mmol/L [facility] CO2 (Bld) [Partial pressure] 46 mm[Hg] High [facility] Glucose [Mass/Vol] 132 mg/dL High 74 - 99 mg/dL [facility] HCO3 (Bld) [Moles/Vol] 24.3 mmol/L 22.0 - 26.0 mmol/L [facility] Hematocrit Est (Bld) [Volume fraction] 39 % Low 41.0 - 52.0 % [facility] Hemoglobin (Bld) [Mass/Vol] 12.9 g/dL Low 13.5 - 17.5 g/dL [facility] Inhaled oxygen concentration 44 % [facility] Interpretation and review of laboratory results Abnormal [facility] Lactate (BldA) [Moles/Vol] 0.7 mmol/L 0.4 - 2.0 mmol/L [facility] Oxygen (Bld) [Partial pressure] 156 mm[Hg] High [facility] Oxyhemoglobin (BldA) [Mass fraction] 95 % 94.0 - 98.0 % [facility] pH (Bld) 7.33 [pH] Low 7.38 - 7.42 pH [facility] Potassium (BldA) [Moles/Vol] 4.5 mmol/L 3.5 - 5.3 mmol/L [facility] Sodium (BldA) [Moles/Vol] 132 mmol/L Low 136 - 145 mmol/L [facility] Anion gap 4 (BldA) [Moles/Vol] 8 mmo/L Low 10-25 [facility] Comment on above: Performed By: #### 5 7021-8 #### TITUS Mercado ([id number]) [facility] ([facility]) [address] [place] [address]402 Base excess Calc (Bld) [Moles/Vol] -1.9000 mmol/L Normal -2.0-3.0 [facility] Comment on above: Performed By: #### 5 7021-8 #### TITUS Mercado ([id number]) [facility] ([facility]) [address] [place] [address] Calcium.ionized (BldA) [Moles/Vol] 1.24 mmol/L Normal 1.10-1.33 [facility] Comment on above: Performed By: #### 5 7021-8 #### TITUS Mercado ([id number]) [facility] ([facility]) [address] [place] [address] 32402 Chloride (BldA) [Moles/Vol] 104 mmol/L Normal 98-107 [facility] Comment on above: Performed By: #### 5 7021-8 #### TITUS Mercado ([id number]) [facility] ([facility]) [address] [place] [address] 45041 CO2 (Bld) [Partial pressure] 46 mm Hg High 38-42 [facility] Comment on above: Performed By: #### 5 7021-8 #### TITUS Mercado ([id number]) [facility] ([facility]) [address] [place] [address] 32862 Glucose [Mass/Vol] 132 mg/dL High 74-99 [facility] Comment on above: Performed By: #### 5 7021-8 #### TITUS Mercado ([id number]) [facility] ([facility]) [address] [place] [address] 39985 HCO3 (Bld) [Moles/Vol] 24.3 mmol/L Normal 22.0-26.0 [facility] Comment on above: Performed By: #### 5 7021-8 #### TITUS SOLORZANO L ([id number]) [facility] ([facility]) [address] [place] [address] 73149 Hematocrit Est (Bld) [Volume fraction] 39.0 % Low 41.0-52.0 [facility] Comment on above: Performed By: #### 5 7021-8 #### TITUS Mercado ([id number]) [facility] ([facility]) [address] [place] [address] 16967 Hemoglobin (Bld) [Mass/Vol] 12.9 g/dL Low 13.5-17.5 [facility] Comment on above: Performed By: #### 5 7021-8 #### TITUS Mercado ([id number]) [facility] ([facility]) [address] [place] [address] 89148 Inhaled oxygen concentration 44 % Normal [facility] Comment on above: Performed By: #### 5 7021-8 #### TITUS Mercado ([id number]) [facility] ([facility]) [address] [place] [address] 70633 Lactate (BldA) [Moles/Vol] 0.7 mmol/L Normal 0.4-2.0 [facility] Comment on above: Performed By: #### 5 7021-8 #### TITUS Mercado ([id number]) [facility] ([facility]) [address] [place] [address] 93311 Oxygen (Bld) [Partial pressure] 156 mm Hg High 85-95 [facility] Comment on above: Performed By: #### 5 7021-8 #### TITUS Mercado ([id number]) [facility] ([facility]) [address] [place] [address] 12289 Oxyhemoglobin (BldA) [Mass fraction] 95.0 % Normal 94.0-98.0 [facility] Comment on above: Performed By: #### 5 7021-8 #### TITUS Mercado ([id number]) [facility] ([facility]) [address] [place] [address] 86502 pH (Bld) 7.33 [pH] Low 7.38-7.42 [facility] Comment on above: Performed By: #### 5 7021-8 #### TITUS Mercado ([id number]) [facility] ([facility]) [address] [place] [address] 26475 Potassium (BldA) [Moles/Vol] 4.5 mmol/L Normal 3.5-5.3 [facility] Comment on above: Performed By: #### 5 7021-8 #### TITUS Mercado ([id number]) [facility] ([facility]) [address] [place] [address] Sodium (BldA) [Moles/Vol] 132 mmol/L Low 136-145 [facility] Comment on above: Performed By: #### 5 7021-8 #### TITUS Mercado ([id number]) [facility] ([facility]) [address] [place] [address] 53922 XR tomography Unspecified monique dy regionon 04-09-2024 These images are not reportable by radiology and will not be interpreted by Radiologists. IMAGING CT TRANSFER OF OUTSIDE FILMS on 03-31-2024 CT TRANSFER OF OUTSIDE FILMS Outside images for comparison or treatment purposes, not interpreted by Radiologists. Normal [facility] Study Interpretation of outs jeffrey studyon 03-31-2024 Outside images for comparison or treatment purposes, not interpreted by Radiologists. IMAGING Blood type and Indirect anti body screen panel (Bld)on 03-26-2024 ABO group Nom (Bld) A Normal [facility] Comment on above: Performed By: #### 3 4532-2 #### TITUS Mercado ([id number]) [facility] ([facility]) [address] [place] [address] 44669 Blood group antibody screen Ql Negative [facility] Comment on above: Performed By: #### 3 4532-2 #### TITUS Mercado ([id number]) [facility] ([facility]) [address] [place] [address] 82905 D Ag Ql (Bld) Positive [facility] Comment on above: Performed By: #### 3 4532-2 #### TITUS Mercado ([id number]) [facility] ([facility]) [address] [place] [address] 67086 DEXA BONE DENSITYon 02-13-20 24 DEXA BONE DENSITY Interpreted By: Ruddy Simmons, STUDY: DEXA BONE DENSITY02/13/2024 10:50 am INDICATION: Signs/Symptoms:r/o osteoporosis, NEED AXIAL SKELETON IMAGES.. The patient is a 63 y/o year old M. ,M54.12 Radiculopathy, cervical region COMPARISON: None. ACCESSION NUMBER(S): [id number] ORDERING CLINICIAN: CAMILLE HARRIS TECHNIQUE: DEXA BONE [...] Ruddy Lopez 12/29/2024 8:09 AM Dictation workstation: [id number] [facility] DXA Skeletal system Views fo r [...] Radiculopathy, cervical region COMPARISON: None. ACCESSION NUMBER(S): [id number] ORDERING CLINICIAN: CAMILLE HARRIS FINDINGS: C-spine, 6 [...] Romulo Medrano 02/19/2024 6:35 PM Dictation workstation: [id number] [facility] Comment on above: Order Comment: Pleas e obtain with flexion and extension XR CHEST 2 VIEWSon XR CHEST 2 VIEWS Interpreted By: Romulo Hubbard, STUDY: XR CHEST 2 VIEWS; 02/13/2024 11:10 am INDICATION: Signs/Symptoms:Preop surgery 02/[address] Steven MD. ,M54.12 Radiculopathy, cervical region,M81.0 Age-related osteoporosis without current pathological fracture COMPARISON: None. ACCESSION NUMBER(S): [id number] ORDERING CLINICIAN: CAMILLE HARRIS FINDINGS: CARDIOMEDIASTINAL SILHOUETTE: Cardiomediastinal silhouette is normal in size and configuration. LUNGS: Lungs are clear. ABDOMEN: No remarkable upper abdominal findings. BONES: No acute osseous changes. IMPRESSION: 1. No evidence of acute cardiopulmonary process. MACRO: None Signed by: Romulo Medrano 02/19/2024 6:53 PM Dictation workstation: [id number] [facility] ECG 12 leadOrdered By: Shavon Rico on 02-12-2024 Atrial Rate 63 BPM [facility] Work Phone: [phone] P [place] 58 degrees [facility] Work Phone: [phone] P Offset 149 ms [facility] Work Phone: [phone] P Onset 90 ms [facility] Work Phone: [phone] GA Interval 268 ms [facility] Work Phone: [phone] Q Onset 224 ms [facility] Work Phone: [phone] QRS Count 10 beats [facility] Work Phone: QRS Duration 74 ms [facility] Work Phone: QT Interval 406 ms [facility] Work Phone: QTC Calculation(Bazett) 415 ms [facility] Work Phone: QTC Fredericia 412 ms [facility] Work Phone: R [place] -3 degrees [facility] Work Phone: T [place] 18 degrees [facility] Work Phone: T Offset 427 ms [facility] Work Phone: Ventricular Rate 63 BPM [facility] Work Phone: [facility] Work Phone: ECG 12 leadon 02-12-2024 Sinus rhythm with [...] Tobi Rico ([id number]) on 02/12/2024 12:20:00 PM [facility] Work Phone: Basic metabolic 2000 panelon 02-11-2024 Anion gap [Moles/Vol] 13 mmol/L Normal 10-20 [facility] Comment on above: Performed By: #### 2 4321-2 #### TITUS Mercado ([id number]) [facility] ([facility]) [address] [place], [place] [address] Calcium [Mass/Vol] 9.6 mg/dL Normal 8.6-10.6 [facility] Comment on above: Performed By: #### 2 6331-2 #### TITUS Mercado ([id number]) [facility] ([facility]) [address] [place] [address] Chloride [Moles/Vol] 104 mmol/L Normal 98-107 [facility] Comment on above: Performed By: #### 2 4321-2 #### TITUS SOLORZANO L (53297) [facility] ([facility]) [address] [place] [address] CO2 [Moles/Vol] 26 mmol/L Normal 21-32 [facility] Comment on above: Performed By: #### 2 4321-2 #### TITUS Mercado (58243) [facility] ([facility]) [address] [place] [address] Creatinine [Mass/Vol] 0.89 mg/dL Normal 0.50-1.30 [facility] Comment on above: Performed By: #### 2 4321-2 #### TITUS Mercado (93934) [facility] ([facility]) [address] [place] [address] GFR/1.73 sq M.predicted MDRD (S/P/Bld) [Vol rate/Area] mL/min/{1.73_m2} Normal >60 [facility] Comment on above: Result Comment: Calc ulations of estimated GFR are performed using the 2020 CKD-EPI Study Refit equation without the race variable for the IDMS-Traceable creatinine methods. https://jasn.asnjournals.org/content/early//ASN.54974 90449 Performed By: #### 2 4321-2 #### TITUS Mercado (89090) [facility] ([facility]) [address] [place] [address] Glucose [Mass/Vol] 77 mg/dL Normal 74-99 [facility] Comment on above: Performed By: #### 2 4321-2 #### TITUS Mercado (05099) [facility] ([facility]) [address] [place] [address] Potassium [Moles/Vol] 4.6 mmol/L Normal 3.5-5.3 [facility] Comment on above: Performed By: #### 2 4321-2 #### TITUS Mercado ([id number]) [facility] ([facility]) [address] [place] [address] Sodium [Moles/Vol] 138 mmol/L Normal 136-145 [facility] Comment on above: Performed By: #### 2 4321-2 #### TITUS Mercado (25707) [facility] ([facility]) [address] [place] [address] Urea nitrogen [Mass/Vol] 9 mg/dL Normal 6-23 [facility] Comment on above: Performed By: #### 2 432-2 #### TITUS Mercado (28403) [facility] ([facility]) [address] [place] [address]44 Blood type and Indirect anti body screen panel (Bld)on 02-11-2024 ABO group Nom (Bld) A Normal [facility] Comment on above: Performed By: #### 3 4532-2 #### TITSU Mercado ([id number]) [facility] ([facility]) [address] [place] [address] 47516 Blood group antibody screen Ql Negative [facility] Comment on above: Performed By: #### 3 453-2 #### TITUS Mercado (42505) [facility] ([facility]) [address] [place] [address] 90914 D Ag Ql (Bld) Positive [facility] Comment on above: Performed By: #### 3 4532-2 #### TITUS Mercado ([id number]) [facility] ([facility]) [address] [place] [address] 38635 CBC W Auto Differential pane l (Bld)on 02-11-2024 Basophils (Bld) [#/Vol] 0.04 x10*3/uL Normal 0.00-0.10 [facility] Comment on above: Performed By: #### 5 7021-8 #### TITUS Mercado (99376) [facility] ([facility]) [address] [place] [address] 56290 Basophils/100 WBC (Bld) 0.8 % Normal 0.0-2.0 [facility] Comment on above: Performed By: #### 5 7021-8 #### TITUS SOLORZANO L ([id number]) [facility] ([facility]) [address] [place] [address] 51600 Eosinophils (Bld) [#/Vol] 0.05 x10*3/uL Normal 0.00-0.70 [facility] Comment on above: Performed By: #### 5 7021-8 #### TITUS Mercado (70910) [facility] ([facility]) [address] [place] [address] 26873 Eosinophils/100 WBC (Bld) 1.0 % Normal 0.0-6.0 [facility] Comment on above: Performed By: #### 7021-8 #### TITUS Mercado (33050) [facility] ([facility]) [address] [place] [address] 73478 Erythrocyte distribution width (RBC) [Ratio] 13.2 % Normal 11.5-14.5 [facility] Comment on above: Performed By: #### 5 7021-8 #### TITUS Mercado (02559) [facility] ([facility]) [address] [place] [address] 30919 Hematocrit (Bld) [Volume fraction] 39.6 % Low 41.0-52.0 [facility] Comment on above: Performed By: #### 5 7021-8 #### TITUS SOLORZANO L (75310) [facility] ([facility]) [address] [place] [address] 71271 Hemoglobin (Bld) [Mass/Vol] 13.2 g/dL Low 13.5-17.5 [facility] Comment on above: Performed By: #### 5 7021-8 #### TITUS Mercado ([id number]) [facility] ([facility]) [address] [place] [address] Immature granulocytes (Bld) [#/Vol] 0.00 x10*3/uL Normal 0.00-0.70 [facility] Comment on above: Performed By: #### 5 7021-8 #### TITUS Mercado ([id number]) [facility] ([facility]) [address] [place] [address] 84153 Immature granulocytes/100 WBC (Bld) 0.0 % Normal 0.0-0.9 [facility] Comment on above: Result Comment: Dayan ture Granulocyte Count (IG) includes promyelocytes, myelocytes and metamyelocytes but does not include bands. Percent differential counts (%) should be interpreted in the context of the absolute cell counts (cells/UL). Performed By: #### 5 7021-8 #### TITUS Mercado ([id number]) [facility] ([facility]) [address] [place] [address] 08945 Lymphocytes (Bld) [#/Vol] 1.74 x10*3/uL Normal 1.20-4.80 [facility] Comment on above: Performed By: #### 5 7021-8 #### TITUS Mercado ([id number]) [facility] ([facility]) [address] [place] [address] 83051 Lymphocytes/100 WBC (Bld) 33.1 % Normal 13.0-44.0 [facility] Comment on above: Performed By: #### 5 7021-8 #### TITUS Mercado ([id number]) [facility] ([facility]) [address] [place] [address] 11779 MCH (RBC) [Entitic mass] 31.5 pg Normal 26.0-34.0 [facility] Comment on above: Performed By: #### 5 7021-8 #### TITUS Mercado ([id number]) [facility] ([facility]) [address] [place] [address] MCHC (RBC) [Mass/Vol] 33.3 g/dL Normal 32.0-36.0 [facility] Comment on above: Performed By: #### 5 7021-8 #### TITUS Mercado ([id number]) [facility] ([facility]) [address] [place] [address] MCV (RBC) [Entitic vol] 95 fL Normal 80-100 [facility] Comment on above: Performed By: #### 5 7021-8 #### TITUS Mercado ([id number]) [facility] ([facility]) [address] [place] [address] 16457 Monocytes (Bld) [#/Vol] 0.30 x10*3/uL Normal 0.10-1.00 [facility] Comment on above: Performed By: #### 5 7021-8 #### TITUS Mercado ([id number]) [facility] ([facility]) [address] [place] [address] 36618 Monocytes/100 WBC (Bld) 5.7 % Normal 2.0-10.0 [facility] Comment on above: Performed By: #### 5 7021-8 #### TITUS Mercado ([id number]) [facility] ([facility]) [address] [place] [address] 70722 Neutrophils (Bld) [#/Vol] 3.13 x10*3/uL Normal 1.20-7.70 [facility] Comment on above: Result Comment: Perc ent differential counts (%) should be interpreted in the context of the absolute cell counts (cells/uL). Performed By: #### 5 7021-8 #### TITUS Mercado ([id number]) [facility] ([facility]) [address] [place] [address] Neutrophils/100 WBC (Bld) 59.4 % Normal 40.0-80.0 [facility] Comment on above: Performed By: #### 5 7021-8 #### TITUS Mercado ([id number]) [facility] ([facility]) [id number] [place] [id number] Nucleated RBC/100 WBC (Bld) [Ratio] 0.0 /100 WBCs Normal 0.0-0.0 [facility] Comment on above: Performed By: #### 5 7021-8 #### TITUS Mercado ([id number]) [facility] ([facility]) [address] [place] [address] Platelets (Bld) [#/Vol] 271 x10*3/uL Normal 150-450 [facility] Comment on above: Performed By: #### 5 7021-8 #### TITUS Mercado ([id number]) [facility] ([facility]) [address] [place] [address] RBC (Bld) [#/Vol] 4.19 x10*6/uL Low 4.50-5.90 [facility] Comment on above: Performed By: #### 5 7021-8 #### TITUS Mercado ([id number]) [facility] ([facility]) [address] [place] [address] WBC (Bld) [#/Vol] 5.3 x10*3/uL Normal 4.4-11.3 [facility] Comment on above: Performed By: #### 5 7021-8 #### TITUS Mercado ([id number]) [facility] ([facility]) [address] [place] [address] ECG 12-LEADon 02-11-2024 ECG 12-LEAD Ventricular Rate 63 Atrial Rate 63 P-R Interval 268 QRS Duration 74 Q-T Interval 406 QTC Calculation(Bazett) 415 P [place] 58 R [place] -3 T [place] 18 QRS Count 10 Q Onset 224 P Onset 90 P Offset 149 T Offset 427 QTC Fredericia 412 Diagnosis Sinus rhythm with 1st degree AV block Otherwise normal ECG When compared with ECG of 30-JAN-2019 19:26, heart rate decreased Confirmed by Tobi Rico ([id number]) on 02/12/2024 12:20:[address] [facility] NICOTINE AND METABOLITES,Son 02-11-2024 Cotinine [Mass/Vol] 152 ng/mL Normal [facility] Comment on above: Performed By: #### N I+ME #### [facility]) ([id number]) [address] [place] [address] Nicotine [Mass/Vol] 6 ng/mL Normal [facility] Comment on above: Result Comment: [...] developed and its performance characteristics determined by [facility]. It has not been cleared or approved by the US Food and Drug Administration. This test was performed in a CLIA certified laboratory and is intended for clinical purposes. Performed By: [facility] [address] [place] [address] Print Decorator: Benjamin Bullock MD, PhD CLIA Number: [id number] Performed By: #### N I+ME #### [facility]) ([id number]) [address] [place] [address] PT and aPTT panel Coag (PPP) on 02-11-2024 aPTT Coag (PPP) [Time] 33 s Normal 27-38 Un [facility] Comment on above: Order Comment: The A PTT is no longer used for monitoring Unfractionated Heparin Therapy. For monitoring Heparin Therapy, use the Heparin Assay. Performed By: #### 3 4529-8 #### TITUS Mercado ([id number]) [facility] ([facility]) [id number] [place] [address] INR Coag (PPP) [Relative time] 1.0 Normal 0.9-1.1 [facility] Comment on above: Order Comment: The A PTT is no longer used for monitoring Unfractionated Heparin Therapy. For monitoring Heparin Therapy, use the Heparin Assay. Performed By: #### 3 4529-8 #### TITUS Mercado ([id number]) [facility] ([facility]) [address] [place], [place] [address] PT Coag (PPP) [Time] 11.5 s Normal 9.8-12.8 [facility] Comment on above: Order Comment: The A PTT is no longer used for monitoring Unfractionated Heparin Therapy. For monitoring Heparin Therapy, use the Heparin Assay. Performed By: #### 3 4529-8 #### TITUS Mercado ([id number]) [facility] ([facility]) [address] [place], [place] [address] Staphylococcus aureus.methic illin resistant isolateon 02-11-2024 MRSA isol Org specific cx Ql (Nose) Test: Staphylococcus aureus/MRSA colonization, Culture Specimen Source: Anterior Nares Specimen Type: Swab Specimen Date: 02/11/2024 150 Result Date: 02/13/2024825 Result Status: Final result Abnormal: No Resulting Lab: [facility] [address] [place], [place] [id number] CULTURE No Staphylococcus aureus isolated Normal [facility] Comment on above: Performed By: #### 5 2969-3 #### TITUS Mercado ([id number]) [facility] ([facility]) [address] [place] [address] Urinalysis complete W Reflex Culture panel (U)on 02-11-2024 Appearance (U) Clear Normal Clear [facility] Comment on above: Performed By: #### 5 8077-9 #### TITUS Mercado ([id number]) [facility] ([facility]) [address] [place], [place] [address] Bilirubin (U) [Mass/Vol] Negative Normal NEGATIVE [facility] Comment on above: Performed By: #### 5 8077-9 #### TITUS Mercado ([id number]) [facility] ([facility]) [address] [place] [address] Color (U) Colorless Normal Light-Graham ow, Yellow, Dark-Yello w [facility] Comment on above: Performed By: #### 5 8077-9 #### TITUS Mercado ([id number]) [facility] ([facility]) [address] [place] [address] Glucose Auto test strip (U) [Mass/Vol] Normal Normal Normal [facility] Comment on above: Performed By: #### 5 8077-9 #### TITUS SOLORZANO L ([id number]) [facility] ([facility]) [address] [place] [address] Ketones (U) [Mass/Vol] Negative Normal NEGATIVE Un [facility] Comment on above: Performed By: #### 5 8077-9 #### TITUS Mercado ([id number]) [facility] ([facility]) [address] [place] [address] Leukocyte esterase Auto test strip Ql (U) Negative Normal NEGATIVE [facility] Comment on above: Performed By: #### 5 8077-9 #### TITUS Mercado ([id number]) [facility] ([facility]) [address] [place] [address] Nitrite Auto test strip Ql (U) Negative Normal NEGATIVE [facility] Comment on above: Performed By: #### 5 8077-9 #### TITUS SOLORZANO L ([id number]) [facility] ([facility]) [address] [place] [address] pH (U) 5.5 [pH] Normal 5.0, 5.5, 6.0, 6.5, 7.0, 7.5, 8.0 [facility] Comment on above: Performed By: #### 5 8077-9 #### TITUS SOLORZANO L ([id number]) [facility] ([facility]) [address] [place] [address] Protein (U) [Mass/Vol] Negative Normal NEGAT CELESTE, 10 (TRACE), 20 (TRACE) [facility] Comment on above: Performed By: #### 5 8077-9 #### TITUS SCHMOTZER L ([id number]) [facility] ([facility]) [address] [place] [address] RBC (U) [#/Vol] Negative Normal NEGATIVE [facility] Comment on above: Performed By: #### 5 8077-9 #### TITUS SCHMOTZER L ([id number]) [facility] ([facility]) [address] [place] [address] Specific gravity (U) [Rel density] 1.007 Normal 1.005-1.[address] [place] [address] Comment on above: Performed By: #### 5 8077-9 #### TITUS SCHMOTZER L ([id number]) [facility] ([facility]) [address] [place] [address] Urobilinogen (U) [Mass/Vol] Normal Normal Normal [facility] Comment on above: Performed By: #### 5 8077-9 #### TITUS SCHMOTZER L ([id number]) [facility] ([facility]) [address] [place] [address] MR BRAIN TUMOR PERFUSION PRO TOCOL W AND WO IV CONTRASTon 12-13-2023 MR BRAIN TUMOR PERFUSION PROTOCOL W AND WO IV CONTRAST Interpreted By: Nate Benavidez, STUDY: MR BRAIN TUMOR PERFUSION PROTOCOL W AND WO IV CONTRAST; 12/13/2023 8:49 am INDICATION: Signs/Symptoms:pontine lesion, imaging surveillance. COMPARISON: None. ACCESSION NUMBER(S): [id number] ORDERING CLINICIAN: SHIMON HEATON TECHNIQUE: Axial diffusion, [...] Nate Benavidez 12/13/2023 9:38 AM Dictation workstation: [id number] [facility] Comment on above: Order Comment: JESSICA huerta cc'd to [facility] MR Brain for new diagnosis t umor [...] Nate Benavidez 12/13/2023 9:38 AM Dictation workstation: [id number] Interpreted By: Nate Dejesus, STUDY: MR BRAIN TUMOR PERFUSION PROTOCOL W AND WO IV CONTRAST; 12/13/2023 8:49 am INDICATION: Signs/Symptoms:pontine lesion, imaging surveillance. COMPARISON: None. ACCESSION NUMBER(S): [id number] ORDERING CLINICIAN: SHIMON HEATON TECHNIQUE: Axial diffusion, [...] lesion, imaging surveillance. COMPARISON: None. ACCESSION NUMBER(S): [id number] ORDERING CLINICIAN: SHIMON HEATON TECHNIQUE: Axial diffusion, [...] Nate Benavidez 12/13/2023 9:38 AM Dictation workstation: [id number] [facility] Work Phone: Radiology Study observation (narrative) [facility] Work Phone: MR Brain for new diagnosis t umor WO and W contrast IVOrdered By: Nate Benavidez on 12-13-2023 [facility] Work Phone: Basophils Auto (Bld) [#/Vol] on 10-26-2023 Basophils (Bld) [#/Vol] 0.04 10*3/uL <0.11 [facility] Basophils/100 WBC Auto (Bld) on 10-26-2023 Basophils/100 WBC (Bld) 0.5 % [facility] Blood manual differential co mment interpretation narrativeon 10-26-2023 Manual differential comment Curtis (Bld) [Interp] Auto [facility] CBC W Auto Differential pane l (Bld)on 10-26-2023 Basophils (Bld) [#/Vol] 0.04 10*3/uL [facility] Basophils/100 WBC (Bld) 0.5 % [facility] Differential cell count method Nom (Bld) Auto [facility] Eosinophils (Bld) [#/Vol] 0.13 10*3/uL [facility] Eosinophils/100 WBC (Bld) 1.5 % [facility] Erythrocyte distribution width (RBC) [Ratio] 13.8 % 11.5 - 15.0 % [facility] Hematocrit (Bld) [Volume fraction] 42.6 % 39.0 - 51.0 % [facility] Hemoglobin (Bld) [Mass/Vol] 14.4 g/dL 13.0 - 17.0 g/dL [facility] Immature granulocytes (Bld) [#/Vol] 0.03 10*3/uL [facility] Immature granulocytes/100 WBC (Bld) 0.3 % [facility] Lymphocytes (Bld) [#/Vol] 2.18 10*3/uL [facility] Lymphocytes/100 WBC (Bld) 24.8 % [facility] MCH (RBC) [Entitic mass] 32.0 pg 26.0 - 34.0 pg [facility] MCHC (RBC) [Mass/Vol] 33.8 g/dL 30.5 - 36.0 g/dL [facility] MCV (RBC) [Entitic vol] 94.7 fL 80.0 - 100.0 fL [facility] Monocytes (Bld) [#/Vol] 0.60 10*3/uL [facility] Monocytes/100 WBC (Bld) 6.8 % [facility] Neutrophils (Bld) [#/Vol] 5.80 10*3/uL [facility] Neutrophils/100 WBC (Bld) 66.1 % [facility] Nucleated RBC (Bld) [#/Vol] NINF [facility] Nucleated RBC/100 WBC (Bld) [Ratio] 0.0 % /100 WBC [facility] Platelet mean volume (Bld) [Entitic vol] 10.2 fL 9.0 - 12.7 fL [facility] Platelets (Bld) [#/Vol] 314 10*3/uL [facility] RBC (Bld) [#/Vol] 4.50 10*6/uL 4.20 - 6.00 m/uL [facility] WBC (Bld) [#/Vol] 8.78 10*3/uL [facility] CT Chest W contrast Tristin IMPRESSION: [...] any questions regarding this interpretation, please call [phone]. If you are unable to reach us at the number above, please feel free to contact [facility] eRadiology at [phone]. DIVISION OF RADIOLOGY * * *Final Report* * * DATE OF EXAM: Oct 26 2023 10:05AM [facility] 0539 - CT CHEST W [...] No additional findings. DIVISION OF RADIOLOGY Provider, [facility] - 10/26/2023 * * *Final Report* * * DATE OF EXAM: Oct 26 2023 10:05AM [facility] 0539 - CT CHEST W [...] any questions regarding this interpretation, please call [phone]. If you are unable to reach us at the number above, please feel free to contact [facility] eRadiology at [phone]. [facility] CT Neck W contrast Tristin 05-1 IMPRESSION: Primary: 1: Expected post-treatment changes in the neck without evidence of recurrent disease in the primary site. Neck: 1: No evidence of abnormal lymph nodes. [email or web address] Transcribe Date/Time: Oct 26 2023 10:15A Dictated by: LIMA LIZ MD This examination was interpreted and the report reviewed and electronically signed by: LIMA LIZ MD on Oct 26 2023 10:35AM EST Thank you for allowing us to participate in the care of your patient. Should there be any questions regarding this interpretation, please call [phone]. If you are unable to reach us at the number above, please feel free to contact [facility] at [phone]. 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 Resected T1 N1 base [...] normal. Parotid and submandibular spaces are normal. [employer] Scoreboard Operator spaces appear normal. Infrahyoid Neck: Hypopharynx, larynx, [...] are clear of focal consolidation or mass. 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 Resected T1 N1 base [...] normal. Parotid and submandibular spaces are normal. [employer] Scoreboard Operator spaces appear normal. Infrahyoid Neck: Hypopharynx, larynx, [...] are clear of focal consolidation or mass. Track Helper (topogram) images: Noncontributory IMPRESSION IMPRESSION: Primary: 1: Expected post-treatment changes in the neck without evidence of recurrent disease in the primary site. Neck: 1: No evidence of abnormal lymph nodes. [email or web address] Transcribe Date/Time: Oct 26 2023 10:15A Dictated by: LIMA LIZ MD This examination was interpreted and the report reviewed and electronically signed by: (more content not included)... [facility] CT Neck W contrast IVOrdered By: Ccf Provider on 10-26-2023 [facility] Comprehensive metabolic 2000 panelOrdered By: Pauly Chan on 10-26-2023 Albumin [Mass/Vol] 4.3 g/dL 3.9 - 4.9 g/dL [facility] ALP [Catalytic activity/Vol] 75 U/L 38 - 113 U/L [facility] ALT [Catalytic activity/Vol] 10 U/L 10 - 54 U/L [facility] Anion gap [Moles/Vol] 8 mmol/L Low 9 - 18 mmol/L [facility] AST [Catalytic activity/Vol] 9 U/L Low 14 - 40 U/L [facility] Bilirubin [Mass/Vol] 0.5 mg/dL 0.2 - 1 .3 mg/dL [facility] Calcium [Mass/Vol] 9.9 mg/dL 8.5 - 10. 2 mg/dL [facility] Chloride [Moles/Vol] 106 mmol/L High 97 - 10 5 mmol/L [facility] CO2 [Moles/Vol] 27 mmol/L 22 - 30 mmol/L [facility] Creatinine [Mass/Vol] 1.01 mg/dL 0.73 - 1.22 mg/dL [facility] GFR/1.73 sq M.predicted among non-blacks MDRD (S/P/Bld) [Vol rate/Area] 85 mL/min/{1.73_m2} - PINF [facility] Comment on above: Estimated Glomerular Filtration Rate [...] [Mass/Vol] 89 mg/dL 74 - 99 mg/dL [facility] Comment on above: The [place] Diabete s Association (ADA) provides guidance for [...] Standards of Medical Care in Diabetes 2016, [place] [employer] Association. Diabetes Care. 2016.39(Suppl 1). Interpretation and review of laboratory results Abnormal [facility] Potassium [Moles/Vol] 4.0 mmol/L 3.7 - 5.1 mmol/L [facility] Protein [Mass/Vol] 6.4 g/dL 6.3 - 8.0 g/dL [facility] Sodium [Moles/Vol] 141 mmol/L 136 - 144 mmol/L [facility] Urea nitrogen [Mass/Vol] 16 mg/dL 9 - 24 mg/dL [facility] Eosinophils/100 WBC Auto (Bl d)on 10-26-2023 Eosinophils/100 WBC (Bld) 1.5 % [facility] Erythrocyte distribution wid th Auto (RBC) [Ratio]on 10-26-2023 Erythrocyte distribution width (RBC) [Ratio] 13.8 % 11.5-15.0 [facility] Hematocrit Auto (Bld) [Volum e fraction]on 10-26-2023 Hematocrit (Bld) [Volume fraction] 42.6 % 39.0-51.0 [facility] Hemoglobin [Mass/volume] in Bloodon 10-26-2023 Hemoglobin (Bld) [Mass/Vol] 14.4 g/dL 13.0-17.0 [facility] Laboratory - Chemistry and C hemistry - challengeon 10-26-2023 Albumin [Mass/Vol] 4.3 g/dL 3.9-4.9 [facility] ALP [Catalytic activity/Vol] 75 U/L 38-113 [facility] ALT [Catalytic activity/Vol] 10 U/L 10-54 [facility] AST [Catalytic activity/Vol] 9 U/L 14-40 [facility] Bilirubin [Mass/Vol] 0.5 mg/dL 0.2-1.3 [facility] Calcium [Mass/Vol] 9.9 mg/dL 8.5-10.2 [facility] Chloride [Moles/Vol] 106 mmol/L 97-105 [facility] CO2 [Moles/Vol] 27 mmol/L 22-30 [facility] Creatinine [Mass/Vol] 1.01 mg/dL 0.73-1.22 [facility] Glucose [Mass/Vol] 89 mg/dL 74-99 [facility] Comment on above: The [place] Diab[employer] s Association (ADA) provides guidance for [...] Standards of Medical Care in Diabetes 2016, [place] Diabetes [employer]. Diabetes Care. 2016.39(Suppl 1). Potassium [Moles/Vol] 4.0 mmol/L 3.7-5.1 [facility] Sodium [Moles/Vol] 141 mmol/L 136-144 [facility] Urea nitrogen [Mass/Vol] 16 mg/dL 9-24 [facility] Laboratory - Hematology and Cell countson 10-26-2023 Eosinophils (Bld) [#/Vol] 0.13 10*3/uL <0.46 [facility] Immature granulocytes (Bld) [#/Vol] 0.03 10*3/uL <0.10 [facility] Immature granulocytes/100 WBC (Bld) 0.3 % [facility] Leukocytes [#/volume] correc mone for nucleated erythrocytes in Blood by Automated counon 10-26-2023 WBC corrected for nucl RBC Auto (Bld) [#/Vol] 8.78 k/uL 3.70-11.00 [facility] Lymphocytes Auto (Bld) [#/Vo l]on 10-26-2023 Lymphocytes (Bld) [#/Vol] 2.18 10*3/uL 1.00-4.00 [facility] Lymphocytes/100 WBC Auto (Bl d)on 10-26-2023 Lymphocytes/100 WBC (Bld) 24.8 % [facility] MCH Auto (RBC) [Entitic mass ]on 10-26-2023 MCH (RBC) [Entitic mass] 32.0 pg 26.0-34.0 [facility] MCHC Auto (RBC) [Mass/Vol]on 10-26-2023 MCHC (RBC) [Mass/Vol] 33.8 g/dL 30.5-36.0 [facility] MCV Auto (RBC) [Entitic vol] on 10-26-2023 MCV (RBC) [Entitic vol] 94.7 fL 80.0-100.0 [facility] Monocytes Auto (Bld) [#/Vol] on 10-26-2023 Monocytes (Bld) [#/Vol] 0.60 10*3/uL <0.87 [facility] Monocytes/100 WBC Auto (Bld) on 10-26-2023 Monocytes/100 WBC (Bld) 6.8 % [facility] Neutrophils Auto (Bld) [#/Vo l]on 10-26-2023 Neutrophils (Bld) [#/Vol] 5.80 10*3/uL 1.45-7.50 [facility] Neutrophils/100 WBC Auto (Bl d)on 10-26-2023 Neutrophils/100 WBC (Bld) 66.1 % [facility] No Panel Informationon 10-25 Radiology Study observation (narrative) [facility] Estimated GFR (CKD-EPI) 85 mL/min/1.73m??? >=60 [facility] Comment on above: Estimated Glomerular [...] 10-26-2023 Nucleated RBC (Bld) [#/Vol] 10*3/uL <0.01 [facility] Nucleated erythrocytes [Pres ence] in Blood by Automated counton 10-26-2023 Nucleated RBC Auto Ql (Bld) 0.0 /100{WBC} [facility] Platelet mean volume Auto (B ld) [Entitic vol]on 10-26-2023 Platelet mean volume (Bld) [Entitic vol] 10.2 fL 9.0-12.7 [facility] Platelets Auto (Bld) [#/Vol] on 10-26-2023 Platelets (Bld) [#/Vol] 314 10*3/uL 150-400 [facility] Protein [Mass/volume] in Ser um or Plasmaon 10-26-2023 Protein [Mass/Vol] 6.4 g/dL 6.3-8.0 [facility] RBC Auto (Bld) [#/Vol]on RBC (Bld) [#/Vol] 4.50 10*6/uL 4.20-6.00 [facility] Serum or plasma anion gap de terminationon 10-26-2023 Anion gap [Moles/Vol] 8 mmol/L 9-18 [facility] Alanine aminotransferase [En zymatic activity/volume] in Serum or PlasmaOrdered By: Griselda Hastings on 10-09-2023 ALT [Catalytic activity/Vol] 8 U/L 7-52 [facility] Albumin [Mass/volume] in Ser um or Plasma by Bromocresol green (BCG) dye binding methoOrdered By: Griselda Hastings on 10-09-2023 Albumin BCG dye [Mass/Vol] 3.9 g/dL 3.5-5.7 [facility] Alkaline phosphatase [Enzyma tic activity/volume] in Serum or PlasmaOrdered By: Griselda Hastings on 10-09-2023 ALP [Catalytic activity/Vol] 59 U/L 34-104 [facility] Aspartate aminotransferase [ Enzymatic activity/volume] in Serum or PlasmaOrdered By: Griselda Hastings on 10-09-2023 AST [Catalytic activity/Vol] 7 U/L 13-39 [facility] Basophils Auto (Bld) [#/Vol] Ordered By: Griselda Hastings on 10-09-2023 Basophils (Bld) [#/Vol] 0.1 10*3/uL 0.0-0.2 [facility] Basophils/100 WBC Auto (Bld) Ordered By: Griselda Hastings on 10-09-2023 Basophils/100 WBC (Bld) 0.9 % . [facility] Bilirubin.total [Mass/volume ] in Serum or PlasmaOrdered By: Griselda Hastings on 10-09-2023 Bilirubin [Mass/Vol] 0.5 mg/dL 0.3-1.0 [facility] COVID-19 Detected/Not Detect edOrdered By: Griselda Hastings on 10-09-2023 SARS-CoV-2 (COVID-19) RNA JER+non-probe Ql (Nph) Not detected Not Detecte [facility] Comment on above: This is a duplicate RP2.1 COVID (PCR) result to be used for statistical tracking purpose only. Calcium [Mass/volume] in Ser um or PlasmaOrdered By: Griselda Hastings on 10-09-2023 Calcium [Mass/Vol] 9.5 mg/dL 8.6-10.3 [facility] Carbon dioxide, total [Moles /volume] in Serum or PlasmaOrdered By: Griselda Hastings on 10-09-2023 CO2 [Moles/Vol] 30.0 mmol/L 21.0-31.0 [facility] Chloride [Moles/volume] in S rica or PlasmaOrdered By: Griselda Hastings on 10-09-2023 Chloride [Moles/Vol] 103 mmol/L 98-107 [facility] Creatinine [Mass/volume] in Serum or PlasmaOrdered By: Griselda Hastings on 10-09-2023 Creatinine [Mass/Vol] 0.92 mg/dL 0.70-1.30 [facility] Eosinophils Auto (Bld) [#/Vo l]Ordered By: Griselda Hastings on 10-09-2023 Eosinophils (Bld) [#/Vol] 0.1 10*3/uL 0.0-0.45 [facility] Eosinophils/100 WBC Auto (Bl d)Ordered By: Griselda Hastings on 10-09-2023 Eosinophils/100 WBC (Bld) 1.0 % . [facility] Erythrocyte distribution wid th Auto (RBC) [Ratio]Ordered By: Griselda Hastings on 10-09-2023 Erythrocyte distribution width (RBC) [Ratio] 14.3 % 12.0-14.8 [facility] Globulin Calc (S) [Mass/Vol] Ordered By: Griselda Hastings on 10-09-2023 Globulin (S) [Mass/Vol] 2.0 g/dL [facility] Glucose [Mass/volume] in Ser um or PlasmaOrdered By: Griselda Hastings on 10-09-2023 Glucose [Mass/Vol] 84 mg/dL 70-100 [facility] Comment on above: ADA recommended refe rence rangeRandom Glucose Reference Range is dependent on time and content of last meal. Glucose of more than 200 mg/dL in a nonstressed, ambulatory subject supports the diagnosis of Diabetes Mellitus. Hematocrit Auto (Bld) [Volum e fraction]Ordered By: Griselda Hastings on 10-09-2023 Hematocrit (Bld) [Volume fraction] 41.9 % 38.8-50.0 [facility] Hemoglobin [Mass/volume] in BloodOrdered By: Griselda Hastings on 10-09-2023 Hemoglobin (Bld) [Mass/Vol] 14.4 g/dL 13.0-17.0 [facility] Leukocytes [#/volume] correc mone for nucleated erythrocytes in Blood by Automated counOrdered By: Griselda Hastings on 10-09-2023 WBC corrected for nucl RBC Auto (Bld) [#/Vol] 8.1 10*3/uL 4.1-10.5 [facility] Lymphocytes Auto (Bld) [#/Vo l]Ordered By: Griselda Hastings on 10-09-2023 Lymphocytes (Bld) [#/Vol] 2.7 10*3/uL 1.00-4.8 [facility] Lymphocytes/100 WBC Auto (Bl d)Ordered By: Griselda Hastings on 10-09-2023 Lymphocytes/100 WBC (Bld) 33.6 % . [facility] MCH Auto (RBC) [Entitic mass ]Ordered By: Griselda Hastings on 10-09-2023 MCH (RBC) [Entitic mass] 32.7 pg 27.5-35.2 [facility] MCHC Auto (RBC) [Mass/Vol]Or dered By: Griselda Hastings on 10-09-2023 MCHC (RBC) [Mass/Vol] 34.4 g/dL 32.5-35.6 [facility] MCV Auto (RBC) [Entitic vol] Ordered By: Griselda Hastings on 10-09-2023 MCV (RBC) [Entitic vol] 94.8 fL 83.5-101 [facility] Monocytes Auto (Bld) [#/Vol] Ordered By: Griselda Hastings on 10-09-2023 Monocytes (Bld) [#/Vol] 0.6 10*3/uL 0.0-0.8 [facility] Monocytes/100 WBC Auto (Bld) Ordered By: Griselda Hastings on 10-09-2023 Monocytes/100 WBC (Bld) 7.5 % . [facility] Neutrophils Auto (Bld) [#/Vo l]Ordered By: Griselda Hastings on 10-09-2023 Neutrophils (Bld) [#/Vol] 4.6 10*3/uL 1.8-7.7 [facility] Neutrophils/100 WBC Auto (Bl d)Ordered By: Griselda Hastings on 10-09-2023 Neutrophils/100 WBC (Bld) 57.0 % . [facility] No Panel InformationOrdered By: Griselda Hastings on 10-09-2023 Estimated GFR (CKD-EPI) > 60.0 mL/Min [facility] Creatinine Clearance (Chem N/A [facility] Nucleated erythrocytes [Pres ence] in Blood by Automated countOrdered By: Griselda Hastings on 10-09-2023 Nucleated RBC Auto Ql (Bld) 0.2 /100{WBC} 0-0.5 [facility] Platelet mean volume Auto (B ld) [Entitic vol]Ordered By: Griselda Hastings on 10-09-2023 Platelet mean volume (Bld) [Entitic vol] 8.3 fL 6.6-10.1 [facility] Platelets Auto (Bld) [#/Vol] Ordered By: Griselda Hastings on 10-09-2023 Platelets (Bld) [#/Vol] 349 10*3/uL 150-450 [facility] Potassium [Moles/volume] in Serum or PlasmaOrdered By: Griselda Hastings on 10-09-2023 Potassium [Moles/Vol] 4.5 mmol/L 3.5-5.1 [facility] Protein [Mass/volume] in Ser um or PlasmaOrdered By: Griselda Hastings on 10-09-2023 Protein [Mass/Vol] 5.9 g/dL 6.4-8.9 [facility] RBC Auto (Bld) [#/Vol]Ordere d By: Griselda Hastings on 10-09-2023 RBC (Bld) [#/Vol] 4.42 10*6/uL 3.90-5.60 [facility] Respiratory pathogens DNA an d RNA panel - Nasopharynx by JER with non-probe detectionOrdered By: Griselda Hastings on 10-09-2023 Respiratory pathogens DNA and RNA panel JER+non-probe (Nph) [facility] Serum or plasma albumin/glob ulin mass ratioOrdered By: Griselda Hastings on 10-09-2023 Albumin/Globulin [Mass ratio] 2.0 {ratio} [facility] Serum or plasma anion gap de terminationOrdered By: Griselda Hastings on 10-09-2023 Anion gap [Moles/Vol] 9.5 mmol/L 6.0-15.0 [facility] Sodium [Moles/volume] in Ser um or PlasmaOrdered By: Griselda Hastings on 10-09-2023 Sodium [Moles/Vol] 138 mmol/L 136-145 [facility] Urea nitrogen [Mass/volume] in Serum or PlasmaOrdered By: Griselda Hastings on 10-09-2023 Urea nitrogen [Mass/Vol] 14 mg/dL 7-25 [facility] WBC Auto (Bld) [#/Vol]Ordere d By: Griselda Hastings on 10-09-2023 WBC (Bld) [#/Vol] 8.1 10*3/uL 4.1-10.5 [facility] Study Interpretation of outs jeffrey studyon 09-19-2023 Outside images for comparison or treatment purposes, not interpreted by Radiologists. IMAGING MRI BRAIN W WO CONTRASTon MRI BRAIN [...] Vitor Hickman MD 08/01/23 Final result Normal [facility] MRI CERVICAL SPINE WO CONTRA STon 07-18-2023 [...] Vitor Hickman MD 08/01/23 Final result Normal [facility] COVID + FLU Quick Testingon 07-02-2023 SARS-CoV-2 (COVID-19) RNA JER+probe Ql (Unsp spec) Negative fflick Other COVID + FLU Quick Testing Negative fflick Other Quick Strepon 07-02-2023 S. pyogenes Org specific cx Ql (Throat) Negative fflick Other Quick Strep fflick Other RSVon 07-02-2023 RSV Ag IA Ql (Unsp spec) Negative [employer] [facility] [employer] Other Creatinine [Mass/volume] in Serum or PlasmaOrdered By: Ruddy Harvey on 05-07-2023 Creatinine [Mass/Vol] 0.91 mg/dL 0.70-1.30 [facility] No Panel InformationOrdered By: Ruddy Harvey on 05-07-2023 Estimated GFR (CKD-EPI) > 60.0 mL/Min [facility] Creatinine Clearance (Chem 83.52 [facility] Urea nitrogen [Mass/volume] in Serum or PlasmaOrdered By: Ruddy Harvey on 05-07-2023 Urea nitrogen [Mass/Vol] 15 mg/dL 7-25 [facility] Creatinine (Bld) [Mass/Vol]O rdered By: Nikole Mota on 05-04-2023 Creatinine [Mass/Vol] 0.9 mg/dL 0.6-1.3 [facility] Comment on above: ER/ESD physician is notified/shown all ISTAT results.Critical values may be confirmed by laboratory testing ifdeemed necessary by ER attending doctor. No Panel InformationOrdered By: Nikole Mota on 05-04-2023 Bedside Estimated GFR (eGFR) > 60.0 [facility] Alanine aminotransferase [En zymatic activity/volume] in Serum or PlasmaOrdered By: Griselda Hastings on 03-30-2023 ALT [Catalytic activity/Vol] 10 U/L 7-52 [facility] Albumin [Mass/volume] in Ser um or Plasma by Bromocresol green (BCG) dye binding methoOrdered By: Griselda Hastings on 03-30-2023 Albumin BCG dye [Mass/Vol] 4.2 g/dL 3.5-5.7 [facility] Alkaline phosphatase [Enzyma tic activity/volume] in Serum or PlasmaOrdered By: Griselda Hastings on 03-30-2023 ALP [Catalytic activity/Vol] 61 U/L 34-104 [facility] Aspartate aminotransferase [ Enzymatic activity/volume] in Serum or PlasmaOrdered By: Griselda Hastings on 03-30-2023 AST [Catalytic activity/Vol] 8 U/L 13-39 [facility] Basophils Auto (Bld) [#/Vol] Ordered By: Griselda Hastings on 03-30-2023 Basophils (Bld) [#/Vol] 0.1 10*3/uL 0.0-0.2 [facility] Basophils/100 WBC Auto (Bld) Ordered By: Griselda Hastings on 03-30-2023 Basophils/100 WBC (Bld) 0.8 % . [facility] Bilirubin.total [Mass/volume ] in Serum or PlasmaOrdered By: Griselda Hastings on 03-30-2023 Bilirubin [Mass/Vol] 0.9 mg/dL 0.3-1.0 [facility] Calcium [Mass/volume] in Ser um or PlasmaOrdered By: Griselda Hastings on 03-30-2023 Calcium [Mass/Vol] 9.1 mg/dL 8.6-10.3 [facility] Carbon dioxide, total [Moles /volume] in Serum or PlasmaOrdered By: Griselda Hastings on 03-30-2023 CO2 [Moles/Vol] 27.0 mmol/L 21.0-31.0 [facility] Chloride [Moles/volume] in S rica or PlasmaOrdered By: Griselda Hastings on 03-30-2023 Chloride [Moles/Vol] 103 mmol/L 98-107 [facility] Cholesterol [Mass/volume] in Serum or PlasmaOrdered By: Griselda Hastings on 03-30-2023 Cholesterol [Mass/Vol] 224 mg/dL 140-200 [facility] Comment on above: Chol less than 200 m g/dl low riskChol 201-239 mg/dl borderline riskChol 240 mg/dl and greater high risk Cholesterol in LDL Calc [Mas s/Vol]Ordered By: Griselda Hastings on 03-30-2023 Cholesterol in LDL [Mass/Vol] 148 mg/dL 0-100 [facility] Comment on above: LDL ATP III CLASSIFI CATIONLDL less than 100 mg/dL OptimalLDL 100-129 mg/dL Near or above optimalLDL 130-159 mg/dL Borderline highLDL 160-189 mg/dL HighLDL greater than 189 mg/dL Very high Cholesterol in VLDL Calc [Ma ss/Vol]Ordered By: Griselda Hastings on 03-30-2023 Cholesterol in VLDL [Mass/Vol] 31 mg/dL [facility] Creatinine [Mass/volume] in Serum or PlasmaOrdered By: Griselda Hastings on 03-30-2023 Creatinine [Mass/Vol] 0.82 mg/dL 0.70-1.30 [facility] Eosinophils Auto (Bld) [#/Vo l]Ordered By: Griselda Hastinsg on 03-30-2023 Eosinophils (Bld) [#/Vol] 0.1 10*3/uL 0.0-0.45 [facility] Eosinophils/100 WBC Auto (Bl d)Ordered By: Griselda Hastings on 03-30-2023 Eosinophils/100 WBC (Bld) 0.6 % . [facility] Erythrocyte distribution wid th Auto (RBC) [Ratio]Ordered By: Griselda Hastings on 03-30-2023 Erythrocyte distribution width (RBC) [Ratio] 14.1 % 12.0-14.8 [facility] Globulin Calc (S) [Mass/Vol] Ordered By: Griselda Hastings on 03-30-2023 Globulin (S) [Mass/Vol] 1.9 g/dL [facility] Glucose [Mass/volume] in Ser um or PlasmaOrdered By: Griselda Hastings on 03-30-2023 Glucose [Mass/Vol] 83 mg/dL 70-100 [facility] Comment on above: ADA recommended refe rence rangeRandom Glucose Reference Range is dependent on time and content of last meal. Glucose of more than 200 mg/dL in a nonstressed, ambulatory subject supports the diagnosis of Diabetes Mellitus. Hematocrit Auto (Bld) [Volum e fraction]Ordered By: Griselda Hastings on 03-30-2023 Hematocrit (Bld) [Volume fraction] 41.4 % 38.8-50.0 [facility] Hemoglobin [Mass/volume] in BloodOrdered By: Griselda Hastings on 03-30-2023 Hemoglobin (Bld) [Mass/Vol] 14.4 g/dL 13.0-17.0 [facility] Leukocytes [#/volume] correc mone for nucleated erythrocytes in Blood by Automated counOrdered By: Griselda Hastings on 03-30-2023 WBC corrected for nucl RBC Auto (Bld) [#/Vol] 10.0 10*3/uL 4.1-10.5 [facility] Lymphocytes Auto (Bld) [#/Vo l]Ordered By: Griselda Hastings on 03-30-2023 Lymphocytes (Bld) [#/Vol] 1.7 10*3/uL 1.00-4.8 [facility] Lymphocytes/100 WBC Auto (Bl d)Ordered By: Griselda Hastings on 03-30-2023 Lymphocytes/100 WBC (Bld) 16.8 % . [facility] MCH Auto (RBC) [Entitic mass ]Ordered By: Griselda Hastings on 03-30-2023 MCH (RBC) [Entitic mass] 33.9 pg 27.5-35.2 [facility] MCHC Auto (RBC) [Mass/Vol]Or dered By: Griselda Hastings on 03-30-2023 MCHC (RBC) [Mass/Vol] 34.9 g/dL 32.5-35.6 [facility] MCV Auto (RBC) [Entitic vol] Ordered By: Griselda Hastings on 03-30-2023 MCV (RBC) [Entitic vol] 97.1 fL 83.5-101 [facility] Monocytes Auto (Bld) [#/Vol] Ordered By: Griselda Hastings on 03-30-2023 Monocytes (Bld) [#/Vol] 0.8 10*3/uL 0.0-0.8 [facility] Monocytes/100 WBC Auto (Bld) Ordered By: Griselda Hastings on 03-30-2023 Monocytes/100 WBC (Bld) 8.0 % . [facility] Neutrophils Auto (Bld) [#/Vo l]Ordered By: Griselda Hastings on 03-30-2023 Neutrophils (Bld) [#/Vol] 7.3 10*3/uL 1.8-7.7 [facility] Neutrophils/100 WBC Auto (Bl d)Ordered By: Griselda Hastings on 03-30-2023 Neutrophils/100 WBC (Bld) 73.8 % . [facility] No Panel InformationOrdered By: Griselda Hastings on 03-30-2023 Estimated GFR (CKD-EPI) > 60.0 mL/Min [facility] Creatinine Clearance (Chem N/A [facility] Nucleated erythrocytes [Pres ence] in Blood by Automated countOrdered By: Griselda Hastings on 03-30-2023 Nucleated RBC Auto Ql (Bld) 0.1 /100{WBC} 0-0.5 [facility] Platelet mean volume Auto (B ld) [Entitic vol]Ordered By: Griselda Hastings on 03-30-2023 Platelet mean volume (Bld) [Entitic vol] 9.2 fL 6.6-10.1 [facility] Platelets Auto (Bld) [#/Vol] Ordered By: Griselda Hastings on 03-30-2023 Platelets (Bld) [#/Vol] 221 10*3/uL 150-450 [facility] Potassium [Moles/volume] in Serum or PlasmaOrdered By: Griselda Hastings on 03-30-2023 Potassium [Moles/Vol] 4.1 mmol/L 3.5-5.1 [facility] Protein [Mass/volume] in Ser um or PlasmaOrdered By: Griselda Hastings on 03-30-2023 Protein [Mass/Vol] 6.1 g/dL 6.4-8.9 [facility] RBC Auto (Bld) [#/Vol]Ordere d By: Griselda Hastings on 03-30-2023 RBC (Bld) [#/Vol] 4.26 10*6/uL 3.90-5.60 [facility] Serum or plasma albumin/glob ulin mass ratioOrdered By: Griselda Hastings on 03-30-2023 Albumin/Globulin [Mass ratio] 2.2 {ratio} [facility] Serum or plasma anion gap de terminationOrdered By: Griselda Hastings on 03-30-2023 Anion gap [Moles/Vol] 12.1 mmol/L 6.0-15.0 [facility] Serum or plasma high density lipoprotein (HDL) cholesterol measurementOrdered By: Griselda Hastings on 03-30-2023 Cholesterol in HDL [Mass/Vol] 44 mg/dL 23-92 [facility] Comment on above: HDL CHOL ATP-III CLA SSIFICATION Cardiovascular RiskHDL > or equal to 60 mg/dL LOWHDL < 40 mg/dL HIGH Serum or plasma total choles terol/high density lipoprotein (HDL) cholesterol mass ratOrdered By: Griselda Hastings on 03-30-2023 Cholesterol.total/Chol esterol in HDL [Mass ratio] 5.1 {ratio} <5.0 [facility] Sodium [Moles/volume] in Ser um or PlasmaOrdered By: Griselda Hastings on 03-30-2023 Sodium [Moles/Vol] 138 mmol/L 136-145 [facility] Thyrotropin [Units/volume] i n Serum or PlasmaOrdered By: Griselda Hastings on 03-30-2023 TSH Qn 0.93 m[IU]/L 0.45-5.33 [facility] Triglyceride [Mass/volume] i n Serum or PlasmaOrdered By: Griselda Hastings on 03-30-2023 Triglyceride [Mass/Vol] 159 mg/dL 0-149 [facility] Comment on above: TRIG ATP III CLASSIF ICATIONTRIG less than 150 mg/dL NormalTRIG 150-199 mg/dL Borderline highTRIG 200-500 mg/dL High TRIG greater than 500 mg/dL Very highStandard traceable to the Center for Disease Conrtrol and Prevention (CDC) test method. Urea nitrogen [Mass/volume] in Serum or PlasmaOrdered By: Griselda Hastings on 03-30-2023 Urea nitrogen [Mass/Vol] 10 mg/dL 7-25 [facility] WBC Auto (Bld) [#/Vol]Ordere d By: Griselda Hastings on 03-30-2023 WBC (Bld) [#/Vol] 10.0 10*3/uL 4.1-10.5 [facility] COVID-19 SOFIAOrdered By: Brandyn Gaytan on 02-26-2023 SARS-CoV+SARS-CoV-2 (COVID-19) Ag IA.rapid Ql (Resp) Negative Negative [facility] Comment on above: This is a duplicate Anna SARS Antigen (JAMILA) result to be used for statistical tracking purpose only. No Panel InformationOrdered By: Daniel Gaytan on 02-26-2023 SARS Antigen (LFIA) [facility] SARS Antigen (LFIA) [facility] No Panel Informationon 12-28 XR Pain Management C ase (Reference Range: not available) *FINAL Date of Service: 12/28/2022 08:49 Adm #: [id number] Reading Dr:RICARDO CAPPS Signoff Dr: RICARDO CAPPS PROCEDURE: PAIN MANAGEMENT CASE - BXR 0999 REASON FOR EXAM: SPONDYLOSIS W/O MYELOPATHY OR RADICULOPATHY, CERVICAL REGION RESULT: Patient Name: JOVANI MELENDEZ STUDY: PAIN MANAGEMENT CASE INDICATION: SPONDYLOSIS W/O MYELOPATHY OR RADICULOPATHY, CERVICAL REGION COMPARISON: None. ACCESSION NUMBER(S): [id number] ORDERING CLINICIAN: LIMA JOSEPH TECHNIQUE: See below: FINDINGS: Fluoroscopy was provided during therapeutic puncture in the region of the cervical spine for pain management. Total fluoroscopy time: 14.56mgy, images: 4. IMPRESSION: Fluoroscopy for pain management. Dictation workstation: [id number] Original Interpreting Physician: RICARDO CAPPS M.D. Original Transcribed by/Date: MMODAL Dec 28 2022 6:14A Original Electronically Signed by/Date: RICARDO CAPPS M.D. Dec 28 2022 9:04A Addendum Interpreting Physician: Addendum Transcribed by/Date: NO ADDENDUM Addendum Electronically Signed by/Date: [facility] [place] Quick Strepon 12-05-2022 S. pyogenes Org specific cx Ql (Throat) Negative fflick Other Quick Strep fflick Other CT Chest W contrast Tristin IMPRESSION: [...] any questions regarding this interpretation, please call [phone]. If you are unable to reach us at the number above, please feel free to contact [facility] at [phone]. DIVISION OF RADIOLOGY * * *Final Report* * * DATE OF EXAM: Oct 27 2022 11:44AM [facility] 0539 - CT CHEST W [...] No abnormality in the imaged upper abdomen. Track Helper (topogram) images: No additional findings. DIVISION OF RADIOLOGY Provider, [facility] - 10/30/2022 * * *Final Report* * * DATE OF EXAM: Oct 27 2022 11:44AM [facility] 0539 - CT CHEST W [...] No abnormality in the imaged upper abdomen. Track Helper (topogram) images: No additional findings. IMPRESSION IMPRESSION: [...] any questions regarding this interpretation, please call [phone]. If you are unable to reach us at the number above, please feel free to contact [facility] at [phone]. [facility] CBC W Auto Differential pane l (Bld)on 10-27-2022 Basophils (Bld) [#/Vol] 0.03 10*3/uL [facility] Basophils/100 WBC (Bld) 0.3 % [facility] Differential cell count method Nom (Bld) Auto [facility] Eosinophils (Bld) [#/Vol] 0.06 10*3/uL [facility] Eosinophils/100 WBC (Bld) 0.7 % [facility] Erythrocyte distribution width (RBC) [Ratio] 14.0 % 11.5 - 15.0 % [facility] Hematocrit (Bld) [Volume fraction] 43.5 % 39.0 - 51.0 % [facility] Hemoglobin (Bld) [Mass/Vol] 14.5 g/dL 13.0 - 17.0 g/dL [facility] Immature granulocytes (Bld) [#/Vol] 0.03 10*3/uL [facility] Immature granulocytes/100 WBC (Bld) 0.3 % [facility] Lymphocytes (Bld) [#/Vol] 2.00 10*3/uL [facility] Lymphocytes/100 WBC (Bld) 21.9 % [facility] MCH (RBC) [Entitic mass] 31.3 pg 26.0 - 34.0 pg [facility] MCHC (RBC) [Mass/Vol] 33.3 g/dL 30.5 - 36.0 g/dL [facility] MCV (RBC) [Entitic vol] 93.8 fL 80.0 - 100.0 fL [facility] Monocytes (Bld) [#/Vol] 0.53 10*3/uL NINF [facility] Monocytes/100 WBC (Bld) 5.8 % [facility] Neutrophils (Bld) [#/Vol] 6.47 10*3/uL [facility] Neutrophils/100 WBC (Bld) 71.0 % [facility] Nucleated RBC (Bld) [#/Vol] NINF [facility] Nucleated RBC/100 WBC (Bld) [Ratio] 0.0 % /100 WBC [facility] Platelet mean volume (Bld) [Entitic vol] 10.8 fL 9.0 - 12.7 fL [facility] Platelets (Bld) [#/Vol] 253 10*3/uL [facility] RBC (Bld) [#/Vol] 4.64 10*6/uL 4.20 - 6.00 m/uL [facility] WBC (Bld) [#/Vol] 9.12 10*3/uL [facility] CT Neck W contrast Tristin 05- IMPRESSION: Primary NIRADS Category: 1. Expected post-treatment changes in the neck without evidence of recurrent disease in the primary site. Neck NIRADS Category: 1. No evidence of abnormal lymph nodes. [email or web address] Transcribe Date/Time: Oct 27 2022 11:56A Dictated by: KATJA HAMPTON MD This examination was interpreted and the report reviewed and electronically signed by: KATJA HAMPTON MD on Oct 27 2022 12:14PM EST Thank you for allowing us to participate in the care of your patient. Should there be any questions regarding this interpretation, please call [phone]. If you are unable to reach us at the number above, please feel free to contact [facility]iology at [phone]. 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 Parotid and submandibular spaces are normal. [employer] Scoreboard Operator spaces appear normal. Infrahyoid Neck: Hypopharynx, larynx, [...] consolidation or mass. 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 Parotid and submandibular spaces are normal. [employer] Scoreboard Operator spaces appear normal. Infrahyoid Neck: Hypopharynx, larynx, [...] evidence of abnormal lymph nodes. [email or web address] Transcribe Date/Time: Oct 27 2022 11:56A Dictated by: KATJA HAMPTON MD This examination was interpreted and the report reviewed and electronically signed by: KATJA HAMPTON MD on Oct 27 2022 12:14PM EST Thank you for allowing us to participate in the care of your patient. Should there be any questions regarding this interpretation, please call [phone]. If you are unable to reach us at the number above, please feel free to contact [facility] at [phone]. [facility] CT Neck W contrast IVOrdered By: Dacia Provider on 10-27-2022 [facility] Comprehensive metabolic 2000 panelOrdered By: Kelly Goodson on 10-27-2022 Albumin [Mass/Vol] 4.3 g/dL 3.9 - 4.9 g/dL [facility] ALP [Catalytic activity/Vol] 89 U/L 38 - 113 U/L [facility] ALT [Catalytic activity/Vol] 7 U/L Low 10 - 54 U/L [facility] Anion gap [Moles/Vol] 10 mmol/L 9 - 18 mmol/L [facility] AST [Catalytic activity/Vol] 8 U/L Low 14 - 40 U/L [facility] Bilirubin [Mass/Vol] 0.3 mg/dL 0.2 - 1 .3 mg/dL [facility] Calcium [Mass/Vol] 9.6 mg/dL 8.5 - 10. 2 mg/dL [facility] Chloride [Moles/Vol] 104 mmol/L 97 - 10 5 mmol/L [facility] CO2 [Moles/Vol] 27 mmol/L 22 - 30 mmol/L [facility] Creatinine [Mass/Vol] 0.93 mg/dL 0.73 - 1.22 mg/dL [facility] GFR/1.73 sq M.predicted among non-blacks MDRD (S/P/Bld) [Vol rate/Area] 95 mL/min/{1.73_m2} - PINF [facility] Comment on above: Estimated Glomerular Filtration Rate [...] [Mass/Vol] 98 mg/dL 74 - 99 mg/dL [facility] Comment on above: The [place] Diab[employer] s Association (ADA) provides guidance for [...] Standards of Medical Care in Diabetes 2016, [place] [employer] Association. Diabetes Care. 2016.39(Suppl 1). Interpretation and review of laboratory results Abnormal [facility] Potassium [Moles/Vol] 4.5 mmol/L 3.7 - 5.1 mmol/L [facility] Protein [Mass/Vol] 6.6 g/dL 6.3 - 8.0 g/dL [facility] Sodium [Moles/Vol] 141 mmol/L 136 - 144 mmol/L [facility] Urea nitrogen [Mass/Vol] 12 mg/dL 9 - 24 mg/dL [facility] No Panel Informationon 10-27 Radiology Study observation (narrative) [facility] Alanine aminotransferase [En zymatic activity/volume] in Serum or PlasmaOrdered By: Griselda Hastings on 10-24-2022 ALT [Catalytic activity/Vol] 7 U/L 7-52 [facility] Albumin [Mass/volume] in Ser um or Plasma by Bromocresol green (BCG) dye binding methoOrdered By: Griselda Hastings on 10-24-2022 Albumin BCG dye [Mass/Vol] 4.2 g/dL 3.5-5.7 [facility] Alkaline phosphatase [Enzyma tic activity/volume] in Serum or PlasmaOrdered By: Griselda Hastings on 10-24-2022 ALP [Catalytic activity/Vol] 76 U/L 34-104 [facility] Aspartate aminotransferase [ Enzymatic activity/volume] in Serum or PlasmaOrdered By: Griselda Hastings on 10-24-2022 AST [Catalytic activity/Vol] 10 U/L 13-39 [facility] Basophils Auto (Bld) [#/Vol] Ordered By: Griselda Hastings on 10-24-2022 Basophils (Bld) [#/Vol] 0.0 10*3/uL 0.0-0.2 [facility] Basophils/100 WBC Auto (Bld) Ordered By: Griselda Hastings on 10-24-2022 Basophils/100 WBC (Bld) 0.9 % . [facility] Bilirubin.total [Mass/volume ] in Serum or PlasmaOrdered By: Griselda Hastings on 10-24-2022 Bilirubin [Mass/Vol] 0.4 mg/dL 0.3-1.0 [facility] Calcium [Mass/volume] in Ser um or PlasmaOrdered By: Griselda Hastings on 10-24-2022 Calcium [Mass/Vol] 9.1 mg/dL 8.6-10.3 [facility] Carbon dioxide, total [Moles /volume] in Serum or PlasmaOrdered By: Griselda Hastings on 10-24-2022 CO2 [Moles/Vol] 28.3 mmol/L 21.0-31.0 [facility] Chloride [Moles/volume] in S rica or PlasmaOrdered By: Griselda Hastings on 10-24-2022 Chloride [Moles/Vol] 105 mmol/L 98-107 [facility] Cholesterol [Mass/volume] in Serum or PlasmaOrdered By: Griselda Hastings on 10-24-2022 Cholesterol [Mass/Vol] 240 mg/dL 140-200 [facility] Comment on above: Chol less than 200 m g/dl low riskChol 201-239 mg/dl borderline riskChol 240 mg/dl and greater high risk Cholesterol in LDL Calc [Mas s/Vol]Ordered By: Griselda Hastings on 10-24-2022 Cholesterol in LDL [Mass/Vol] 169 mg/dL 0-100 [facility] Comment on above: LDL ATP III CLASSIFI CATIONLDL less than 100 mg/dL OptimalLDL 100-129 mg/dL Near or above optimalLDL 130-159 mg/dL Borderline highLDL 160-189 mg/dL HighLDL greater than 189 mg/dL Very high Cholesterol in VLDL Calc [Ma ss/Vol]Ordered By: Griselda Hastings on 10-24-2022 Cholesterol in VLDL [Mass/Vol] 35 mg/dL [facility] Creatinine [Mass/volume] in Serum or PlasmaOrdered By: Griselda Hastings on 10-24-2022 Creatinine [Mass/Vol] 0.88 mg/dL 0.70-1.30 [facility] Eosinophils Auto (Bld) [#/Vo l]Ordered By: Griselda Hastings on 10-24-2022 Eosinophils (Bld) [#/Vol] 0.1 10*3/uL 0.0-0.45 [facility] Eosinophils/100 WBC Auto (Bl d)Ordered By: Griselda Hastings on 10-24-2022 Eosinophils/100 WBC (Bld) 2.0 % . [facility] Erythrocyte distribution wid th Auto (RBC) [Ratio]Ordered By: Griselda Hastings on 10-24-2022 Erythrocyte distribution width (RBC) [Ratio] 14.7 % 12.0-14.8 [facility] Globulin Calc (S) [Mass/Vol] Ordered By: Griselda Hastings on 10-24-2022 Globulin (S) [Mass/Vol] 2.1 g/dL [facility] Glucose [Mass/volume] in Ser um or PlasmaOrdered By: Griselda Hastings on 10-24-2022 Glucose [Mass/Vol] 82 mg/dL 70-100 [facility] Comment on above: ADA recommended refe rence rangeRandom Glucose Reference Range is dependent on time and content of last meal. Glucose of more than 200 mg/dL in a nonstressed, ambulatory subject supports the diagnosis of Diabetes Mellitus. Hematocrit Auto (Bld) [Volum e fraction]Ordered By: Griselda Hastings on 10-24-2022 Hematocrit (Bld) [Volume fraction] 43.4 % 38.8-50.0 [facility] Hemoglobin [Mass/volume] in BloodOrdered By: Griselda Hastings on 10-24-2022 Hemoglobin (Bld) [Mass/Vol] 14.5 g/dL 13.0-17.0 [facility] Leukocytes [#/volume] correc mone for nucleated erythrocytes in Blood by Automated counOrdered By: Griselda Hastings on 10-24-2022 WBC corrected for nucl RBC Auto (Bld) [#/Vol] 5.0 10*3/uL 4.1-10.5 [facility] Lymphocytes Auto (Bld) [#/Vo l]Ordered By: Griselda Hastings on 10-24-2022 Lymphocytes (Bld) [#/Vol] 2.0 10*3/uL 1.00-4.8 [facility] Lymphocytes/100 WBC Auto (Bl d)Ordered By: Griselda Hastings on 10-24-2022 Lymphocytes/100 WBC (Bld) 39.8 % . [facility] MCH Auto (RBC) [Entitic mass ]Ordered By: Griselda Hastings on 10-24-2022 MCH (RBC) [Entitic mass] 31.5 pg 27.5-35.2 [facility] MCHC Auto (RBC) [Mass/Vol]Or dered By: Griselda Hastings on 10-24-2022 MCHC (RBC) [Mass/Vol] 33.5 g/dL 32.5-35.6 [facility] MCV Auto (RBC) [Entitic vol] Ordered By: Griselda Hastings on 10-24-2022 MCV (RBC) [Entitic vol] 94.0 fL 83.5-101 [facility] Monocytes Auto (Bld) [#/Vol] Ordered By: Girselda Hastings on 10-24-2022 Monocytes (Bld) [#/Vol] 0.3 10*3/uL 0.0-0.8 [facility] Monocytes/100 WBC Auto (Bld) Ordered By: Griselda Hastings on 10-24-2022 Monocytes/100 WBC (Bld) 5.4 % . [facility] Neutrophils Auto (Bld) [#/Vo l]Ordered By: Griselda Hastings on 10-24-2022 Neutrophils (Bld) [#/Vol] 2.6 10*3/uL 1.8-7.7 [facility] Neutrophils/100 WBC Auto (Bl d)Ordered By: Griselda Hastings on 10-24-2022 Neutrophils/100 WBC (Bld) 51.9 % . [facility] No Panel InformationOrdered By: Griselda Hastings on 10-24-2022 Estimated GFR (CKD-EPI) > 60.0 mL/Min [facility]acy Creatinine Clearance (Chem N/A [facility] Nucleated erythrocytes [Pres ence] in Blood by Automated countOrdered By: Griselda Hastings on 10-24-2022 Nucleated RBC Auto Ql (Bld) 0.1 /100{WBC} 0-0.5 [facility] Platelet mean volume Auto (B ld) [Entitic vol]Ordered By: Griselda Hastings on 10-24-2022 Platelet mean volume (Bld) [Entitic vol] 9.6 fL 6.6-10.1 [facility] Platelets Auto (Bld) [#/Vol] Ordered By: Griselda Hastings on 10-24-2022 Platelets (Bld) [#/Vol] 247 10*3/uL 150-450 [facility] Potassium [Moles/volume] in Serum or PlasmaOrdered By: Griselda Hastings on 10-24-2022 Potassium [Moles/Vol] 4.0 mmol/L 3.5-5.1 [facility] Prostate specific Ag [Mass/v olume] in Serum or PlasmaOrdered By: Griselda Hastinsg on 10-24-2022 Prostate specific Ag [Mass/Vol] 0.370 ng/mL 0.000-4.00 0 [facility] Protein [Mass/volume] in Ser um or PlasmaOrdered By: Griselda Hastings on 10-24-2022 Protein [Mass/Vol] 6.3 g/dL 6.4-8.9 [facility] RBC Auto (Bld) [#/Vol]Ordere d By: Griselda Hastings on 10-24-2022 RBC (Bld) [#/Vol] 4.61 10*6/uL 3.90-5.60 [facility] Serum or plasma albumin/glob ulin mass ratioOrdered By: Griselda Hastings on 10-24-2022 Albumin/Globulin [Mass ratio] 2.0 {ratio} [facility] Serum or plasma anion gap de terminationOrdered By: Griselda Hastings on 10-24-2022 Anion gap [Moles/Vol] 11.7 mmol/L 6.0-15.0 [facility] Serum or plasma high density lipoprotein (HDL) cholesterol measurementOrdered By: Griselda Hastings on 10-24-2022 Cholesterol in HDL [Mass/Vol] 36 mg/dL 29-71 [facility] Comment on above: HDL CHOL ATP-III CLA SSIFICATION Cardiovascular RiskHDL > or equal to 60 mg/dL LOWHDL < 40 mg/dL HIGH Serum or plasma total choles terol/high density lipoprotein (HDL) cholesterol mass ratOrdered By: Griselda Hastings on 10-24-2022 Cholesterol.total/Chol esterol in HDL [Mass ratio] 6.7 {ratio} <5.0 [facility] Sodium [Moles/volume] in Ser um or PlasmaOrdered By: Griselda Hastings on 10-24-2022 Sodium [Moles/Vol] 141 mmol/L 136-145 [facility] Thyrotropin [Units/volume] i n Serum or PlasmaOrdered By: Griselda Hastings on 10-24-2022 TSH Qn 1.26 m[IU]/L 0.45-5.33 [facility] Triglyceride [Mass/volume] i n Serum or PlasmaOrdered By: Griselda Hastings on 10-24-2022 Triglyceride [Mass/Vol] 175 mg/dL 0-149 [facility] Comment on above: TRIG ATP III CLASSIF ICATIONTRIG less than 150 mg/dL NormalTRIG 150-199 mg/dL Borderline highTRIG 200-500 mg/dL High TRIG greater than 500 mg/dL Very highStandard traceable to the Center for Disease Conrtrol and Prevention (CDC) test method. Urea nitrogen [Mass/volume] in Serum or PlasmaOrdered By: Griselda Hastings on 10-24-2022 Urea nitrogen [Mass/Vol] 15 mg/dL 7-25 [facility] WBC Auto (Bld) [#/Vol]Ordere d By: Griselda Hastings on 10-24-2022 WBC (Bld) [#/Vol] 5.0 10*3/uL 4.1-10.5 [facility] BRIEF OP NOTon 09-28-2022 BRIEF OP NOT HNO ID: [id number] Author: Demond Cat APRN.CNP Service: Interventional Radiology Author Type: Nurse Practitioner Type: Brief Op Note Filed: 09/28/2022 3:14 PM Note Text: BRIEF OPERATIVE / PROCEDURE NOTE LOG ID: [id number] SURGERY/PROCEDURE DATE: 09/28/2022 INCISION/PROCEDURE START TIME: 1:58 PM INCISION CLOSE/PROCEDURE END TIME: 2:27 PM SURGEON(S)/PROCEDURALIST( S) AND FLOW MANAGER(S): Surgeon(s) and Role: * Demond Cat APRN.VOCATIONAL NURSE - Primary No Additional Staff SURGERY/PROCEDURE(S): LP [...] DIAGNOSIS: Same as Preop SIGNATURE: Demond Cat APRN.VOCATIONAL NURSE PATIENT NAME: Jovani Melendez DATE: September 28, 2022 TIME: 3:10 PM [facility] IR LUMBAR PUNCTURE DIAGon IR LUMBAR [...] guidance was performed in conjunction with the flight test data acquisition technician. Plane A, Air Kerma: 20.0 mGy Dose Area Product (DAP): 76924.1 mGy*cm2 Fluoro time: 3:54 min: sec Post-Procedure: [...] procedure was performed by: Demond Cat APRN.CNP [employer]ing Machine Operator: HARPER Transcribe Date/Time: Sep 28 2022 3:15P Dictated by : DEMOND CAT CNP This examination was interpreted and the report reviewed and electronically signed by: DEMOND CAT CNP on Sep 28 2022 3:22PM EST [id number] [facility] NURSING PROGon 09-28-2022 NURSING PROG HNO ID: [id number] Author: Court Magana RN Service: Nursing Author [...] Primary Care Provider Electronically Signed By: Court Del Castillo [facility] MRI BRAIN WO/W IVCONon 09-22 [facility] COVID + FLU Quick Testingon 08-01-2022 SARS-CoV-2 (COVID-19) RNA JER+probe Ql (Unsp spec) Negative [facility] Other COVID + FLU Quick Testing neagative [facility] Other COVID + FLU Quick Testing Negative [facility] Other RSVon 08-01-2022 RSV Ag IA Ql (Unsp spec) Positive [facility] Other Cerebrospinal fluid post-valdez trifugation appearance determinationOrdered By: Elvi Cadena on 07-17-2022 Appearance (Spun CSF) Colorless Colorless [facility] Cerebrospinal fluid sample t ube volume measurementOrdered By: Elvi Cadena on 07-17-2022 Specimen volume (CSF) 22.0 mL [facility] Color CSFOrdered By: Elvi Cadena on 07-17-2022 Color (CSF) Colorless Colorless [facility] Manual cerebrospinal fluid e rythrocytes count (number/volume)Ordered By: Elvi Cadena on 07-17-2022 RBC Manual cnt (CSF) [#/Vol] 0 /uL [facility] Comment on above: The reference interv al and other method performance specifications have not been established for this body fluid. The test result must be integrated into the clinical context for interpretation. No Panel InformationOrdered By: Elvi Cadena on 07-17-2022 CSF Appearance Clear Clear [facility] CSF Tube Number Tube number: 1 [facility] Nucleated cells [#/volume] i n Cerebral spinal fluid by Manual countOrdered By: Elvi Cadena on 07-17-2022 Nucleated cells Manual cnt (CSF) [#/Vol] 0.003 10*3/uL 0-5 [facility] Activated partial thrombopla stin time (aPTT) in platelet poor plasma by coagulation aOrdered By: Loi Wong on 04-16-2022 aPTT Coag (PPP) [Time] 32.8 s 25.1-36.5 [facility] Basophils Auto (Bld) [#/Vol] Ordered By: Loi Wong on 04-16-2022 Basophils (Bld) [#/Vol] 0.1 10*3/uL 0.0-0.2 [facility] Basophils/100 WBC Auto (Bld) Ordered By: Loi Wong on 04-16-2022 Basophils/100 WBC (Bld) 1.2 % . [facility] Creatine kinase [Enzymatic a ctivity/volume] in Serum or PlasmaOrdered By: Loi Wong on 04-16-2022 CK [Catalytic activity/Vol] 69 U/L 22-269 [facility] Creatinine and Glomerular fi ltration rate.predicted panel (S/P/Bld)Ordered By: Loi Wong on 04-16-2022 Creatinine [Mass/Vol] 0.97 mg/dL 0.64-1.27 [facility] Eosinophils Auto (Bld) [#/Vo l]Ordered By: Loi Wong on 04-16-2022 Eosinophils (Bld) [#/Vol] 0.1 10*3/uL 0.0-0.45 [facility] Eosinophils/100 WBC Auto (Bl d)Ordered By: Loi Wong on 04-16-2022 Eosinophils/100 WBC (Bld) 1.2 % . [facility] Erythrocyte distribution wid th Auto (RBC) [Ratio]Ordered By: Loi Wong on 04-16-2022 Erythrocyte distribution width (RBC) [Ratio] 14.1 % 12.0-14.8 [facility] Estimated glomerular filtrat ion rate (GFR) non- AmericanOrdered By: Loi Wong on 04-16-2022 GFR/1.73 sq M.predicted among non-blacks MDRD (S/P/Bld) [Vol rate/Area] > 60 mL/Min [facility] Hematocrit Auto (Bld) [Volum e fraction]Ordered By: Loi Wong on 04-16-2022 Hematocrit (Bld) [Volume fraction] 43.2 % 38.8-50.0 [facility] Hemoglobin [Mass/volume] in BloodOrdered By: Lio Wong on 04-16-2022 Hemoglobin (Bld) [Mass/Vol] 14.7 g/dL 13.0-17.0 [facility] Laboratory - Chemistry and C hemistry - challengeOrdered By: Loi Wong on 04-16-2022 Natriuretic peptide B (Bld) [Mass/Vol] 29.0 pg/mL 5-100 [facility] Laboratory - CoagulationOrde red By: Loi Wong on 04-16-2022 PT Coag (PPP) [Time] 12.0 s 9.0-12.9 [facility] Laboratory - Hematology and Cell countsOrdered By: Loi Wong on 04-16-2022 Nucleated RBC/100 WBC (Bld) [Ratio] 0.1 % 0-0.5 [facility] Leukocytes [#/volume] in Blo od by Automated countOrdered By: Loi Wong on 04-16-2022 WBC (Bld) [#/Vol] 7.7 10*3/uL 4.5-11.0 [facility] Lymphocytes Auto (Bld) [#/Vo l]Ordered By: Loi Wong on 04-16-2022 Lymphocytes (Bld) [#/Vol] 2.3 10*3/uL 1.00-4.8 [facility] Lymphocytes/100 WBC Auto (Bl d)Ordered By: Loi Wong on 04-16-2022 Lymphocytes/100 WBC (Bld) 29.4 % . [facility] MCH Auto (RBC) [Entitic mass ]Ordered By: Loi Wong on 04-16-2022 MCH (RBC) [Entitic mass] 32.0 pg 27.5-35.2 [facility] MCHC Auto (RBC) [Mass/Vol]Or dered By: Loi Wong on 04-16-2022 MCHC (RBC) [Mass/Vol] 34.0 g/dL 32.5-35.6 [facility] MCV Auto (RBC) [Entitic vol] Ordered By: Loi Wong on 04-16-2022 MCV (RBC) [Entitic vol] 94.0 fL 83.5-101 [facility] Monocytes Auto (Bld) [#/Vol] Ordered By: Loi Wong on 04-16-2022 Monocytes (Bld) [#/Vol] 0.6 10*3/uL 0.0-0.8 [facility] Monocytes/100 WBC Auto (Bld) Ordered By: Loi Wong on 04-16-2022 Monocytes/100 WBC (Bld) 7.7 % . [facility] Neutrophils Auto (Bld) [#/Vo l]Ordered By: Loi Wong on 04-16-2022 Neutrophils (Bld) [#/Vol] 4.7 10*3/uL 1.8-7.7 [facility] Neutrophils/100 WBC Auto (Bl d)Ordered By: Loi Wong on 04-16-2022 Neutrophils/100 WBC (Bld) 60.5 % . [facility] No Panel InformationOrdered By: Loi Wong on 04-16-2022 D-Dimer Quantitative (PE/DVT) < 200 ng/mL 0-243 [facility] Comment on above: The reference [...] conditions. Estimated GFR () > 60 mL/Min [facility] Comment on above: GFR estimated refere nce range: According to KDOQI guidelines, <60 ml/min/1.73m2 is sufficient to diagnose a patient with chronic kidney disease. Pharmacy Creatinine Clearance (Chem 79.33 [facility] Platelet mean volume Auto (B ld) [Entitic vol]Ordered By: Loi Wong on 04-16-2022 Platelet mean volume (Bld) [Entitic vol] 9.7 fL 6.6-10.1 [facility] Platelet poor plasma interna tional normalized ratio (INR) by coagulation assay (relatOrdered By: Loi Wong on 04-16-2022 INR Coag (PPP) [Relative time] 1.1 {INR} [facility] Comment on above: INR Therapeutic [...] 04-16-2022 Platelets (Bld) [#/Vol] 238 10*3/uL 150-450 [facility] RBC Auto (Bld) [#/Vol]Ordere d By: Loi Wong on 04-16-2022 RBC (Bld) [#/Vol] 4.59 10*6/uL 3.90-5.60 [facility] Serum or plasma anion gap de terminationOrdered By: Loi Wong on 04-16-2022 Anion gap [Moles/Vol] 12.4 mmol/L 6.0-15.0 [facility] Serum or plasma calcium paramjit urement (mass/volume)Ordered By: Loi Wong on 04-16-2022 Calcium [Mass/Vol] 9.0 mg/dL 8.2-10.2 [facility] Serum or plasma chloride robby surement (moles/volume)Ordered By: Lio Wong on 04-16-2022 Chloride [Moles/Vol] 103 mmol/L 95-114 [facility] Serum or plasma creatine kin ase MB (CKMB)/total creatine kinase (CK) ratio by calculaOrdered By: Loi Wong on 04-16-2022 CK.MB Calc [Catalytic fraction] 2.0 % 0.00-2.50 [facility] Serum or plasma creatine kin ase MB measurement (mass/volume)Ordered By: Loi Wong on 04-16-2022 CK.MB [Mass/Vol] 1.4 ng/mL 0.6-6.3 [facility] Serum or plasma glucose paramjit urement (mass/volume)Ordered By: Loi Wong on 04-16-2022 Glucose [Mass/Vol] 88 mg/dL 70-100 [facility] Comment on above: ADA recommended refe rence rangeRandom Glucose Reference Range is dependent on time and content of last meal. Glucose of more than 200 mg/dL in a nonstressed, ambulatory subject supports the diagnosis of Diabetes Mellitus. Serum or plasma potassium me asurement (moles/volume)Ordered By: Loi Wong on 04-16-2022 Potassium [Moles/Vol] 4.3 mmol/L 3.5-5.1 [facility] Serum or plasma sodium measu rement (moles/volume)Ordered By: Loi Wong on 04-16-2022 Sodium [Moles/Vol] 135 mmol/L 136-146 [facility] Serum or plasma total carbon dioxide measurement (moles/volume)Ordered By: Loi Wong on 04-16-2022 CO2 [Moles/Vol] 23.9 mmol/L 22.0-30.0 [facility] Serum or plasma urea nitroge n measurement (mass/volume)Ordered By: Loi Wong on 04-16-2022 Urea nitrogen [Mass/Vol] 12 mg/dL 03-10 [facility] Troponin I.cardiac [Mass/vol ume] in Serum or Plasma by High sensitivity methodOrdered By: Loi Wong on 04-16-2022 Troponin I.cardiac High sensitivity method [Mass/Vol] 5 pg/mL 0- [facility] COVID Quick Testingon 2021 Result Negative [facility] Other Quick Fluon 03-16-2022 FLUAV Ab CF (S) [Titer] Negative [facility] Other FLUBV Ab CF (S) [Titer] Negative [facility] Other MRI Brain w/o + w/on 022 [...] by Jillian Morales on 01/18/2022 1413 Normal [facility] Cell Count + Differential, C SFon 11-07-2021 WBC (Bld) [#/Vol] 0.006 10*3/uL above high threshold 0 - 5 [facility] [employer] Work Phone: [phone] Cell Count + Differential, CSF 70 1 [facility] Work Phone: [phone] Cell Count + Differential, CSF 10 % [facility] Work Phone: [phone] Cell Count + Differential, CSF 60 % [facility] Work Phone: [phone] Cell Count + Differential, CSF 30 % [facility] Work Phone: [phone] Cell Count + Differential, CSF Colorless COLORLESS [facility] Work Phone: [phone] Cell Count + Differential, CSF 245 /uL above high threshold 0 - 5 [facility] Work Phone: [phone] Cell Count + Differential, CSF Tube 1 [facility] Work Phone: [phone] Cell Count + Differential, CSF Clear CLEAR [facility] Work Phone: [phone] Cult, CSF, includes [...] 36 mg/dL above high threshold 0-35 [facility] Work Phone: [phone] Albumin [Mass/Vol] 4578 mg/dL [phone] [facility] [employer] Work Phone: [phone] IgG (CSF) [Mass/Vol] 2.2 mg/dL 0.0-6.0 [facility] [employer] Work Phone: [phone] IgG [Mass/Vol] 496 mg/dL below low threshold 768-1632 [facility] [employer] Work Phone: [phone] Comment on above: REFERENCE INTERVAL: Immunoglobulin GAccess complete set of age- and/or gender-specific reference intervals for this test in the [facility] Test Directory ([employer]). IgG clearance/Albumin clearance (S+CSF) [Ratio] 0.56 {ratio} 0.28-0.66 [facility] Work Phone: [phone] IgG synthesis rate Calc (S+CSF) [Mass/Time] 0.5 mg/d <=8.0 [facility] Work Phone: [phone] IgG/Albumin (CSF) [Mass ratio] 0.06 {ratio} below low threshold 0.09-0.25 [facility] Work Phone: [phone] Oligoclonal bands Elph (CSF) [Interp] Negative Negative [facility] Work Phone: [phone] Oligoclonal bands Elph Ucrtis (CSF) [Interp] See Note [facility] Work Phone: [phone] Comment on above: Isoelectric focusing /immunofixation revealed no oligoclonal bands in either the CSF or the serum. This is considered to be a negative result for oligoclonal bands. Approximately 5 percent of patients with clinically definitive multiple sclerosis will have a negative result.Performed By: [id number] [place] [address] [id number] Director: Paula Middleton MD Albumin (CSF) [Mass/Vol] Canceled [facility] Work Phone: [phone] Albumin [Mass/Vol] Canceled [facility] Work Phone: [phone] Glucose (CSF) [Mass/Vol] 56 mg/dL 40 - 70 [facility] Work Phone: [phone] IgG (CSF) [Mass/Vol] Canceled [facility] Work Phone: [phone] IgG [Mass/Vol] Canceled [facility] [employer] Work Phone: [phone] IgG clearance/Albumin clearance [...] above high threshold 15 - 45 [facility] -[facility] Work Phone: No Panel Informationon 11-07 0 {Bands} 0-1 [facility] -[facility] Work Phone: [facility] -[facility] Work Phone: Canceled [facility] -[facility] Work Phone: Path Review, CSFon Path Review, CSF R.REHANA [facility] Work Phone: Comment on above: By her/his signature above, the Pathologist listed as making the final interpretation certifies that she/he has personally reviewed this case. HEMORRHAGIC SPECIMEN, NO MALIGNANT CELLS IDENTIFIED. Blood Pressure Cuff Sizeon 0 11-03-2021 Fall risk assessment a) No falls within the last year [facility] Work Phone: Tobacco use status [facility] a) Yes 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 In [...] He saw Dr. Ba a neurologist in [facility]. He describes his vision as seeing [...] MG Oral Tablet Vitals Vital Signs Recorded: [id number] 09:38AM Qnxxqayefmq10.2 F Heart Rate63 Nfhaqxvsmln64 Ykehkibc825 Bglxcxyvw17 Blood Pressure Cuff SizeAdult Height5 ft 7.13 in Awsnzu111 lb 6 oz BMI Xzraneobie27.05 kg/m2 BSA Calculated1.91 Tobacco Usea) Yes Fall Screeninga) No falls within the last year O2 Ryfgdkbwyv73 Pain Scale7 Physical Exam Constitutional - General appearance: No acute distress, well de (more content not included)... 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 In [...] Patient was referred to me by Dr. Rodriegz for diagnosis. I have asked Katja Cordoba [...] He saw Dr. Ba a neurologist in [facility]. He describes his vision as seeing [...] MG Oral Tablet Vitals Vital Signs Recorded: [id number] 09:38AM Xgzlrtjtjpj90.2 F Heart Rate63 Ldinfehdksa71 Pesrrnko438 Ciwxavlou13 Blood Pressure Cuff SizeAdult Height5 ft 7.13 in Xhfywg387 lb 6 oz BMI Aloagoxtoi45.05 kg/m2 BSA Calculated1.91 Tobacco Usea) Yes Fall Screeninga) No falls within the last year O2 Vkggxrhuiu44 Pain Scale7 Ph (more content not included)... Normal [facility] CBC W Auto Differential pane l (Bld)on 10-06-2021 Basophils (Bld) [#/Vol] 0.06 10*3/uL [facility] Basophils/100 WBC (Bld) 0.8 % [facility] Differential cell count method Nom (Bld) Auto [facility] Eosinophils (Bld) [#/Vol] 0.11 10*3/uL [facility] Eosinophils/100 WBC (Bld) 1.5 % [facility] Erythrocyte distribution width (RBC) [Ratio] 12.8 % 11.5 - 15.0 % [facility] Hematocrit (Bld) [Volume fraction] 43.7 % 39.0 - 51.0 % [facility] Hemoglobin (Bld) [Mass/Vol] 14.6 g/dL 13.0 - 17.0 g/dL [facility] Immature granulocytes (Bld) [#/Vol] [facility] Immature granulocytes/100 WBC (Bld) 0.3 % [facility] Lymphocytes (Bld) [#/Vol] 1.75 10*3/uL [facility] Lymphocytes/100 WBC (Bld) 23.7 % [facility] MCH (RBC) [Entitic mass] 32.7 pg 26.0 - 34.0 pg [facility] MCHC (RBC) [Mass/Vol] 33.4 g/dL 30.5 - 36.0 g/dL [facility] MCV (RBC) [Entitic vol] 98.0 fL 80.0 - 100.0 fL [facility] Monocytes (Bld) [#/Vol] 0.52 10*3/uL NINF [facility] Monocytes/100 WBC (Bld) 7.0 % [facility] Neutrophils (Bld) [#/Vol] 4.92 10*3/uL [facility] Neutrophils/100 WBC (Bld) 66.7 % [facility] Nucleated RBC (Bld) [#/Vol] NINF [facility] Nucleated RBC/100 WBC (Bld) [Ratio] 0.0 % /100 WBC [facility] Platelet mean volume (Bld) [Entitic vol] 10.8 fL 9.0 - 12.7 fL [facility] Platelets (Bld) [#/Vol] 246 10*3/uL [facility] RBC (Bld) [#/Vol] 4.46 10*6/uL 4.20 - 6.00 m/uL [facility] WBC (Bld) [#/Vol] 7.38 10*3/uL [facility] This is an appended report. These results have been appended to a previously verified report. [facility] CT Chest W contrast Tristin IMPRESSION: [...] any questions regarding this interpretation, please call [phone]. If you are unable to reach us at the number above, please feel free to contact [facility] eRadiology at [phone]. MATHEW_DO_NOT_US E_DIVISION OF RADIOLOGY * * *Final Report* * * DATE OF EXAM: Oct 06 2021 8:22AM [facility] 0539 - CT CHEST W [...] images through the upper abdomen appear stable. Track Helper (topogram) images: No additional findings. ZZZ_DO_NOT_US E_DIVISION OF RADIOLOGY Provider, [facility] - 10/06/2021 * * *Final Report* * * DATE OF EXAM: Oct 06 2021 8:22AM [facility] 0539 - CT CHEST W [...] images through the upper abdomen appear stable. Track Helper (topogram) images: No additional findings. IMPRESSION IMPRESSION: [...] any questions regarding this interpretation, please call [phone]. If you are unable to reach us at the number above, please feel free to contact [facility]iology at [phone]. [facility] CT Neck W contrast Tristin 04-2 [...] any questions regarding this interpretation, please call [phone]. If you are unable to reach us at the number above, please feel free to contact [facility] at [phone]. ZZZ_DO_NOT_US E_DIVISION OF RADIOLOGY * * *Final Report* * * DATE OF EXAM: Oct 06 2021 8:22AM [facility] 0013 - CT NECK SOFT [...] ZZZ_DO_NOT_US E_DIVISION OF RADIOLOGY Provider, Dacia Nieto [facility] - 10/06/2021 * * *Final Report* * * DATE OF EXAM: Oct 06 2021 8:22AM [facility] 0013 - CT NECK SOFT [...] any questions regarding this interpretation, please call [phone]. If you are unable to reach us at the number above, please feel free to contact [facility] at [phone]. [facility] CT Neck W contrast IVOrdered By: Ccf Provider on 10-06-2021 [facility] Comprehensive metabolic 2000 panelOrdered By: Micheal Vizcaino on 10-06-2021 Albumin [Mass/Vol] 4.5 g/dL 3.9 - 4.9 g/dL [facility] ALP [Catalytic activity/Vol] 82 U/L 38 - 113 U/L [facility] ALT [Catalytic activity/Vol] 25 U/L 10 - 54 U/L [facility] Anion gap [Moles/Vol] 10 mmol/L 9 - 18 mmol/L [facility] AST [Catalytic activity/Vol] 21 U/L 14 - 40 U/L [facility] Bilirubin [Mass/Vol] 0.6 mg/dL 0.2 - 1 .3 mg/dL [facility] Calcium [Mass/Vol] 9.5 mg/dL 8.5 - 10. 2 mg/dL [facility] Chloride [Moles/Vol] 106 mmol/L High 97 - 10 5 mmol/L [facility] CO2 [Moles/Vol] 29 mmol/L 22 - 30 mmol/L [facility] Creatinine [Mass/Vol] 1.01 mg/dL 0.73 - 1.22 mg/dL [facility] GFR/1.73 sq M.predicted among non-blacks MDRD (S/P/Bld) [Vol rate/Area] 86 mL/min/{1.73_m2} - PINF [facility] Comment on above: Estimated Glomerular Filtration Rate [...] 107 mg/dL High 74 - 99 mg/dL [facility] Comment on above: The [place] Diab[employer] s Association (ADA) provides guidance for [...] Standards of Medical Care in Diabetes 2016, [place] [employer] Association. Diabetes Care. 2016.39(Suppl 1). Interpretation and review of laboratory results Abnormal [facility] Potassium [Moles/Vol] 4.2 mmol/L 3.7 - 5.1 mmol/L [facility] Protein [Mass/Vol] 6.5 g/dL 6.3 - 8.0 g/dL [facility] Sodium [Moles/Vol] 145 mmol/L High 136 - 144 mmol/L [facility] Urea nitrogen [Mass/Vol] 10 mg/dL 9 - 24 mg/dL [facility] No Panel Informationon 10-06 Radiology Study observation (narrative) [facility] COVID + FLU Quick Testingon 06-30-2021 SARS-CoV-2 (COVID-19) RNA JER+probe Ql (Unsp spec) Negative [facility] Other COVID + FLU Quick Testing Negative [facility] Other COVID Quick Testingon 2020 Result Negative [facility] Other Basophils Auto (Bld) [#/Vol] on 09-20-2020 Basophils (Bld) [#/Vol] 0.0 10*3/uL 0.0-0.2 [facility] Basophils/100 WBC Auto (Bld) on 09-20-2020 Basophils/100 WBC (Bld) 0.6 % [facility] Blood hemoglobin measurement (mass/volume)on 09-20-2020 Hemoglobin (Bld) [Mass/Vol] 14.4 g/dL 13.0-17.0 [facility] Blood leukocytes automated c ount (number/volume)on 09-20-2020 WBC (Bld) [#/Vol] 7.4 10*3/uL 4.5-11.0 [facility] Eosinophils Auto (Bld) [#/Vo l]on 09-20-2020 Eosinophils (Bld) [#/Vol] 0.1 10*3/uL 0.0-0.45 [facility] Eosinophils/100 WBC Auto (Bl d)on 09-20-2020 Eosinophils/100 WBC (Bld) 0.9 % [facility] Erythrocyte distribution wid th Auto (RBC) [Ratio]on 09-20-2020 Erythrocyte distribution width (RBC) [Ratio] 14.6 % 12.0-14.8 [facility] Hematocrit Auto (Bld) [Volum e fraction]on 09-20-2020 Hematocrit (Bld) [Volume fraction] 41.7 % 38.8-50.0 [facility] Lymphocytes Auto (Bld) [#/Vo l]on 09-20-2020 Lymphocytes (Bld) [#/Vol] 1.6 10*3/uL 1.00-4.8 [facility] Lymphocytes/100 WBC Auto (Bl d)on 09-20-2020 Lymphocytes/100 WBC (Bld) 21.3 % [facility] MCH Auto (RBC) [Entitic mass ]on 09-20-2020 MCH (RBC) [Entitic mass] 32.4 pg 27.5-35.2 [facility] MCHC Auto (RBC) [Mass/Vol]on 09-20-2020 MCHC (RBC) [Mass/Vol] 34.5 g/dL 32.5-35.6 [facility] MCV Auto (RBC) [Entitic vol] on 09-20-2020 MCV (RBC) [Entitic vol] 93.9 fL 83.5-101 [facility] Monocytes Auto (Bld) [#/Vol] on 09-20-2020 Monocytes (Bld) [#/Vol] 0.6 10*3/uL 0.0-0.8 [facility] Monocytes/100 WBC Auto (Bld) on 09-20-2020 Monocytes/100 WBC (Bld) 8.6 % [facility] Neutrophils Auto (Bld) [#/Vo l]on 09-20-2020 Neutrophils (Bld) [#/Vol] 5.1 10*3/uL 1.8-7.7 [facility] Neutrophils/100 WBC Auto (Bl d)on 09-20-2020 Neutrophils/100 WBC (Bld) 68.6 % [facility] Otheron 09-20-2020 Nucleated RBC/100 WBC (Bld) [Ratio] 0.0 % 0-0.5 [facility] Platelet mean volume Auto (B ld) [Entitic vol]on 09-20-2020 Platelet mean volume (Bld) [Entitic vol] 9.3 fL 6.6-10.1 [facility] Platelets Auto (Bld) [#/Vol] on 09-20-2020 Platelets (Bld) [#/Vol] 182 10*3/uL 150-450 [facility] RBC Auto (Bld) [#/Vol]on RBC (Bld) [#/Vol] 4.44 10*6/uL 3.90-5.60 [facility] Body fluid albumin measureme nt (mass/volume)on 09-13-2020 Albumin (Body fld) [Mass/Vol] 4.3 g/dL 3.2-5.5 [facility] Cholesterol [Mass/volume] in Serum or Plasmaon 09-13-2020 Cholesterol [Mass/Vol] 219 mg/dL 140-200 [facility] Comment on above: Chol less than 200 m g/dl low riskChol 201-239 mg/dl borderline riskChol 240 mg/dl and greater high risk Cholesterol in LDL Calc [Mas s/Vol]on 09-13-2020 Cholesterol in LDL [Mass/Vol] 149 mg/dL 0-100 [facility] Comment on above: LDL ATP III CLASSIFI CATIONLDL less than 100 mg/dL OptimalLDL 100-129 mg/dL Near or above optimalLDL 130-159 mg/dL Borderline highLDL 160-189 mg/dL HighLDL greater than 189 mg/dL Very high Cholesterol in VLDL Calc [Ma ss/Vol]on 09-13-2020 Cholesterol in VLDL [Mass/Vol] 28 mg/dL [facility] Creatinine and Glomerular fi ltration rate.predicted panel (S/P/Bld)on 09-13-2020 Creatinine [Mass/Vol] 0.89 mg/dL 0.64-1.27 [facility] GFR/1.73 sq M.predicted roverto g non-blacks MDRD (S/P/Bld) [Vol rate/Area]on 09-13-2020 GFR/1.73 sq M predicted among non-blacks MDRD (S/P/Bld) [Vol rate/Area] > 60 mL/Min [facility] Globulin Calc (S) [Mass/Vol] on 09-13-2020 Globulin (S) [Mass/Vol] 2.0 g/dL [facility] No Panel Informationon 09-13 Estimated GFR () > 60 mL/Min [facility] Comment on above: GFR estimated refere nce range: According to KDOQI guidelines, <60 ml/min/1.73m2 is sufficient to diagnose a patient with chronic kidney disease. Otheron 09-13-2020 GFR/1.73 sq M.predicted MDRD (S/P/Bld) [Vol rate/Area] > 60 mL/Min [facility] Comment on above: GFR estimated refere nce range: According to KDOQI guidelines, <60 ml/min/1.73m2 is sufficient to diagnose a patient with chronic kidney disease. Pharmacy Creatinine Clearance (Chem N/A [facility] Prostate Specific Antigen Screen 0.480 ng/mL 0.000-4.00 0 [facility] Protein [Mass/volume] in Ser um or Plasmaon 09-13-2020 Protein [Mass/Vol] 6.3 g/dL 6.1-7.9 [facility] SARS-CoV-2 (COVID-19) IgG Ab [Presence] in Serum or Plasma by Immunoassayon 09-13-2020 SARS-CoV-2 (COVID-19) IgG Ab [Presence] in Serum or Plasma by Immunoassay Positive Negative [facility] Comment on above: Results suggest rece nt or prior infection with SARS-CoV-2.Correlation with epidemiologic risk factors and otherclinical and laboratory findings is recommended. Serologicresults should not be used as the sole basis to diagnose orexclude recent SARS-CoV-2 infection. False positive resultsinfrequently occur due to prior infection with other humanCoronaviruses.This assay was performed using the [employer]ison(R)SARS-CoV-2 S1/S2 IgG assay.This assay detects antibodies against SARS-CoV-2 spikeprotein including the receptor binding domain (RBD).Performed at: [address] [id number] Director: Florencio Wu PhD, Phone: [phone] SARS-CoV-2 (COVID-19) IgG IA Ql Positive Negative [facility] Comment on above: Results suggest rece nt or prior infection with SARS-CoV-2.Correlation with epidemiologic risk factors and otherclinical and laboratory findings is recommended. Serologicresults should not be used as the sole basis to diagnose orexclude recent SARS-CoV-2 infection. False positive resultsinfrequently occur due to prior infection with other humanCoronaviruses.This assay was performed using the [employer] L[employer]ison(R)SARS-CoV-2 S1/S2 IgG assay.This assay detects antibodies against SARS-CoV-2 spikeprotein including the receptor binding domain (RBD).Performed at: [address] [id number] Director: Florencio Wu PhD, Phone: [phone] Serum or plasma alanine mclaughlin otransferase measurement without P-5'-P (enzymatic activion 09-13-2020 ALT No additional P-5'-P [Catalytic activity/Vol] 19 U/L [facility] Serum or plasma albumin/glob ulin mass ratioon 09-13-2020 Albumin/Globulin [Mass ratio] 2.2 {ratio} [facility] Serum or plasma alkaline fuentes sphatase measurement (enzymatic activity/volume)on 09-13-2020 ALP [Catalytic activity/Vol] 53 U/L 3292 [facility] Serum or plasma aspartate am inotransferase measurement (enzymatic activity/volume)on 09-13-2020 AST [Catalytic activity/Vol] 22 U/L 10 [facility] Serum or plasma calcium paramjit urement (mass/volume)on 09-13-2020 Calcium [Mass/Vol] 9.1 mg/dL 8.2-10.2 [facility] Serum or plasma chloride robby surement (moles/volume)on 09-13-2020 Chloride [Moles/Vol] 105 mmol/L 95-114 [facility] Serum or plasma glucose paramjit urement (mass/volume)on 09-13-2020 Glucose [Mass/Vol] 97 mg/dL 70-100 [facility] Comment on above: ADA recommended refe rence rangeRandom Glucose Reference Range is dependent on time and content of last meal. Glucose of more than 200 mg/dL in a nonstressed, ambulatory subject supports the diagnosis of Diabetes Mellitus. Serum or plasma high density lipoprotein (HDL) cholesterol measurementon 09-13-2020 Cholesterol in HDL [Mass/Vol] 41 mg/dL [facility] Comment on above: HDL CHOL ATP-III CLA SSIFICATION Cardiovascular RiskHDL > or equal to 60 mg/dL LOWHDL < 40 mg/dL HIGH Serum or plasma potassium me asurement (moles/volume)on 09-13-2020 Potassium [Moles/Vol] 4.2 mmol/L 3.5-5.1 [facility] Serum or plasma sodium measu rement (moles/volume)on 09-13-2020 Sodium [Moles/Vol] 135 mmol/L 136-146 [facility] Serum or plasma thyroid stim ulating hormone (TSH) measurement by high sensitivity meton 09-13-2020 TSH Qn 1.66 u[iU]/mL 0.45-5.33 [facility] Serum or plasma total biliru bin measurement (mass/volume)on 09-13-2020 Bilirubin [Mass/Vol] 0.9 mg/dL 0.3-1.2 [facility] Serum or plasma total carbon dioxide measurement (moles/volume)on 09-13-2020 CO2 [Moles/Vol] 22.5 mmol/L 22.0-30.0 [facility] Serum or plasma total choles terol/high density lipoprotein (HDL) cholesterol mass gia 09-13-2020 Cholesterol.total/Chol esterol in HDL [Mass ratio] 5.3 {ratio} [facility] Serum or plasma urea nitroge n measurement (mass/volume)on 09-13-2020 Urea nitrogen [Mass/Vol] 12 mg/dL 9-23 [facility] TSH DL <= 0.005 mIU/L Qnon 0 09-13-2020 TSH Qn 1.66 m[IU]/L 0.45-5.33 [facility] Triglyceride [Mass/volume] i n Serum or Plasmaon 09-13-2020 Triglyceride [Mass/Vol] 144 mg/dL 35-149 [facility] Comment on above: TRIG ATP III CLASSIF ICATIONTRIG less than 150 mg/dL NormalTRIG 150-199 mg/dL Borderline highTRIG 200-500 mg/dL High TRIG greater than 500 mg/dL Very highStandard traceable to the Center for Disease Conrtrol and Prevention (CDC) test method. History and Physicalon 11-01 -2019 History and Physical HOSPITAL REGULATION S: ALL [...] eye. Coleen Grajeda M.D. aek Dictated: 04/14/2019 #[id number] Typed 04/14/2019 #[id number] cc: Coleen Grajeda M.D. [facility] Comment on above: Result Comment: Elec tronically Signed By: Coleen Grajeda MD\Date and Time Signed: 04/18/19 09:54 EDT Operative [...] and inferior fornices of the eye. A [employer] manometer was set on the eye at [...] condition. Coleen Grajeda M.D. gls Dictated: 04/14/2019 #[id number] Typed: 04/15/2019 #[id number] cc: Coleen Grajeda M.D. [facility] Comment on above: Result Comment: Elec tronically Signed By: Coleen Grajeda MD\.br\Date and Time Signed: 04/18/19 09:54 EDT Coding Summary.on 04-15-2019 Coding Summary. 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 Name: JOVANI MELENDEZ/Sex: 1960 Male Med Rec #: [id number] Physician: Coleen Grajeda MD Financial #: [id number] Pt. Type: A Room/Bed: [facility]07/19 Admit/Disch: 04/14/19 12:59:00 - 04/14/19 16:00:00 Institution: [...] Performed Surgeon - Primary Scrub - Primary Fire Manager - Primary Time In 04/14/19 14:55:00 04/14/19 [...] VERNON, Pauly GOODEN, RN, Tierra Role Performed Fire Manager - Primary Fire Manager - Relief Time In 04/14/19 14:55:00 04/14/19 [...] Participants Asya Alves CST, Tinker RN, Omar oMtley RN, Pauly Da Silva Time Out Complete [...] Unable to Visualize, Outcomes Met? Yes Warm, Colt, Dry Last Modified By: Johnathon Karimi RN [...] Entry 1 Via Cart By Patrick MYERS, JANEEN, Tierra Safety Precautions Side Rails Up Outcomes [...] RN Patient Status Stable Skin. Condition Warm, Colt, Dry Description unchanged Airway Maintenance Oxygen in [...] safely administered during the perioperative period For [facility] please see scanned medication reconcilliation form for medications used at the field during the procedure. 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-[employer]OM[employer] Catalog ?# [id number] 21.0[F] Expiration Date 10/16/23 Unique Device [id number] Identifier (BERNARD) Usage Data FT Implant Site [...] 15:16 Asya Alves CST 04/15/19 14:44 Normal [facility] Inpatient Patient Summaryon 04-14-2019 Inpatient Patient Summary [facility] Clinical Discharge Instructions PERSON INFORMATION Name: JOVANI MELENDEZ PHYSICIANS Admitting Physician: Coleen Grajeda MD Attending Physician: Coleen Grajeda MD PCP: JILLIAN BARONE DO Discharge Diagnosis: Cataract Comment: PATIENT EDUCATION INFORMATION Instructions: Medication Leaflets: Follow up: With: Address: When: Coleen Grajeda [address] [facility] [address], [place] [address] Business (1) Comments: Call physician if symptoms worsen Keep scheduled appointment MEDICATION LIST Comment: Normal [facility] Main OR PACU II Recordon Main OR PACU II Record PACU Phase II Doc ument Type FT Summary Primary Physician: Coleen Grajeda MD Finalized Date/Time: 04/14/19 17:54:42 Pt. Name: JOVANI MELENDEZ D.O.B./Sex: 1960 Male Med Rec #: [id number] Physician: Coleen Grajeda MD Financial #: [id number] Pt. Type: A Room/Bed: [facility]07/19 Admit/Disch: 04/14/19 12:59:23 - Institution: Case Times [...] By: Lizeth Rush RN 04/14/19 17:54 Normal [facility] Main OR Preoperative Recordo n 04-14-2019 Main OR Preoperative Record PreOp Document Type FT Summary Primary Physician: Coleen Grajeda MD Finalized Date/Time: 04/14/19 15:14:03 Pt. Name: JOVANI MELENDEZ /Sex: 1960 Male Med Rec #: [id number] Physician: Coleen Grajeda MD Financial #: [id number] Pt. Type: A Room/Bed: [facility]07/19 Admit/Disch: 04/14/19 12:59:23 - Institution: Case Times [...] By: Johnathon Karimi RN 04/14/19 15:14 Normal [facility] Patient Education - Texton 1 Patient Education - Text [facility] Vital Signs Date Time Vital Sign Value Performing Clinician Facility 01-12-2025 15:20-0400 Body height 172.72 cm Griselda Murray Technologiess DO Work Phone: [facility] 01-12-2025 15:20-0400 Body mass index (BMI) [Ratio] 27 kg/m2 Griselda Kuns DO Work Phone: [facility] 01-12-2025 15:20-0400 Body weight 80.73 kg Griselda Murray Technologiess DO Work Phone: [facility] 01-12-2025 15:20-0400 Diastolic blood pressure 74 mm[Hg] Griselda Murray Technologiess DO Work Phone: [facility] 01-12-2025 15:20-0400 Heart rate 76 /min Griselda Kuns DO Work Phone: [facility] 01-12-2025 15:20-0400 Systolic blood pressure 120 mm[Hg] Griselda Kuns DO Work Phone: [facility] 12-24-2024 14:12-0400 Body mass index (BMI) [Ratio] 25.09 kg/m2 Elvi Cadena MD Work Phone: [facility] 12-24-2024 14:12-0400 Body weight 74.84 kg Elvi Cadena MD Work Phone: [facility] 12-24-2024 14:12-0400 Diastolic blood pressure 87 mm[Hg] Elvi Cadena MD Work Phone: [facility] 12-24-2024 14:12-0400 Heart rate 85 /min Elvi Cadena MD Work Phone: [facility] 12-24-2024 14:12-0400 Systolic blood pressure 125 mm[Hg] Elvi Cadena MD Work Phone: [facility] 11-19-2024 14:04-0400 Body height 172.72 cm Griselda Kuns DO Work Phone: [facility] 11-19-2024 14:04-0400 Body temperature 100.7 [degF] Griselda Kuns DO Work Phone: [facility] 11-19-2024 14:04-0400 Heart rate 96 /min Griselda Kuns DO Work Phone: [facility] 11-19-2024 14:04-0400 Respiratory rate 18 /min Griselda Kuns DO Work Phone: [facility] 11-19-2024 14:04-0400 SaO2% (BldA) [Mass fraction] 99 % Griselda Kuns DO Work Phone: [facility] 11-17-2024 14:03-0400 Body height 172.72 cm Griselda Kuns DO Work Phone: [facility] 11-17-2024 14:03-0400 Body mass index (BMI) [Ratio] 26.3 kg/m2 Griselda Kuns DO Work Phone: [facility] 11-17-2024 14:03-0400 Body weight 78.47 kg Griselda Kuns DO Work Phone: [facility] 11-17-2024 14:03-0400 Diastolic blood pressure 80 mm[Hg] Griselda Kuns DO Work Phone: [facility] 11-17-2024 14:03-0400 Heart rate 109 /min Griselda Kuns DO Work Phone: [facility] 11-17-2024 14:03-0400 Systolic blood pressure 120 mm[Hg] Griselda Kuns DO Work Phone: [facility] 11-05-2024 10:30-0400 Diastolic blood pressure 76 mm[Hg] Grisedla Kuns DO Work Phone: [facility] 11-05-2024 10:30-0400 Heart rate 71 /min Griselda Kuns DO Work Phone: [facility] 11-05-2024 10:30-0400 Respiratory rate 20 /min Griselda Kuns DO Work Phone: [facility] 11-05-2024 10:30-0400 SaO2% (BldA) [Mass fraction] 98 % Griselda Kuns DO Work Phone: [facility] 11-05-2024 10:30-0400 Systolic blood pressure 110 mm[Hg] Griselda Kuns DO Work Phone: [facility] 11-05-2024 07:12-0400 Body height 172.72 cm Griselda Kuns DO Work Phone: [facility] 11-05-2024 07:12-0400 Body weight 77.11 kg Griselda Kuns DO Work Phone: [facility] 10-27-2024 09:57-0400 Body height 172.72 cm Griselda Kuns DO Work Phone: [facility] 10-27-2024 09:57-0400 Body mass index (BMI) [Ratio] 26.4 kg/m2 Griselda Kuns DO Work Phone: [facility] 10-27-2024 09:57-0400 Body weight 78.92 kg Griselda Kuns DO Work Phone: [facility] 10-27-2024 09:57-0400 Diastolic blood pressure 64 mm[Hg] Griselda Kuns DO Work Phone: [facility] 10-27-2024 09:57-0400 Heart rate 64 /min Griselda Kuns DO Work Phone: [facility] 10-27-2024 09:57-0400 Respiratory rate 18 /min Griselda Kuns DO Work Phone: [facility] 10-27-2024 09:57-0400 SaO2% (BldA) [Mass fraction] 98 % Griselda Kuns DO Work Phone: [facility] 10-27-2024 09:57-0400 Systolic blood pressure 110 mm[Hg] Griselda Kuns DO Work Phone: [facility] 10-13-2024 09:06-0400 Body height 172.7 cm Camille Harris MD Work Phone: [facility] 10-13-2024 09:06-0400 Body mass index (BMI) [Ratio] 25.54 kg/m2 Camille Harris MD Work Phone: [facility] 10-13-2024 09:06-0400 Body weight 76.2 kg Camille Harris MD Work Phone: [facility] 10-13-2024 09:06-0400 Diastolic blood pressure 60 mm[Hg] Camille Harris MD Work Phone: [facility] 10-13-2024 09:06-0400 Heart rate 75 /min Camille Harris MD Work Phone: [facility] 10-13-2024 09:06-0400 Systolic blood pressure 100 mm[Hg] Camille Harris MD Work Phone: [facility] 10-10-2024 13:05-0400 Body height 172.72 cm Griselda Kuns DO Work Phone: [facility] 10-10-2024 13:05-0400 Body mass index (BMI) [Ratio] 25.4 kg/m2 Griselda Kuns DO Work Phone: [facility] 10-10-2024 13:05-0400 Body weight 75.74 kg Griselda Kuns DO Work Phone: [facility] 10-10-2024 13:05-0400 Diastolic blood pressure 58 mm[Hg] Griselda Kuns DO Work Phone: [facility] 10-10-2024 13:05-0400 Heart rate 76 /min Griselda Kuns DO Work Phone: [facility] 10-10-2024 13:05-0400 Systolic blood pressure 94 mm[Hg] Griselda Kuns DO Work Phone: [facility] 10-06-2024 18:42-0400 Diastolic blood pressure 80 mm[Hg] Griselda Kuns DO Work Phone: [facility] 10-06-2024 18:42-0400 Heart rate 80 /min Griselda Kuns DO Work Phone: [facility] 10-06-2024 18:42-0400 Respiratory rate 16 /min Griselda Kuns DO Work Phone: [facility] 10-06-2024 18:42-0400 SaO2% (BldA) [Mass fraction] 98 % Griselda Kuns DO Work Phone: [facility] 10-06-2024 18:42-0400 Systolic blood pressure 142 mm[Hg] Griselda Kuns DO Work Phone: [facility] 10-06-2024 14:04-0400 Body height 172.72 cm Griselda Kuns DO Work Phone: [facility] 10-06-2024 14:04-0400 Body temperature 98.2 [degF] Griselda Kuns DO Work Phone: [facility] 10-06-2024 14:04-0400 Body weight 77.9 kg Griselda Kuns DO Work Phone: [facility] 09-20-2024 14:00-0400 Heart rate 88 /min Griselda Kuns DO Work Phone: [facility] 09-20-2024 14:00-0400 Respiratory rate 20 /min Griselda Kuns DO Work Phone: [facility] 09-20-2024 14:00-0400 SaO2% (BldA) [Mass fraction] 93 % Griselda Kuns DO Work Phone: [facility] 09-20-2024 13:48-0400 Body temperature 99.4 [degF] Griselda Kuns DO Work Phone: [facility] 09-20-2024 13:48-0400 Diastolic blood pressure 59 mm[Hg] Griselda Kuns DO Work Phone: [facility] 09-20-2024 13:48-0400 Systolic blood pressure 103 mm[Hg] Griselda Kuns DO Work Phone: [facility] 09-20-2024 10:55-0400 Body height 172.72 cm Griselda Kuns DO Work Phone: [facility] 09-20-2024 10:55-0400 Body weight 77.9 kg Griselda Kuns DO Work Phone: [facility] 09-11-2024 10:46-0400 Body mass index (BMI) [Ratio] 27.06 kg/m2 Elvi Cadena MD Work Phone: [facility] 09-11-2024 10:46-0400 Body weight 80.74 kg Elvi Cadena MD Work Phone: [facility] 09-11-2024 10:46-0400 Diastolic blood pressure 68 mm[Hg] Elvi Cadena MD Work Phone: [facility] 09-11-2024 10:46-0400 Heart rate 61 /min Elvi Cadena MD Work Phone: [facility] 09-11-2024 10:46-0400 Systolic blood pressure 135 mm[Hg] Elvi Cadena MD Work Phone: [facility] 09-11-2024 09:22-0400 Body height 172.72 cm Griselda Kuns DO Work Phone: [facility] 09-11-2024 09:22-0400 Body mass index (BMI) [Ratio] 28.1 kg/m2 Griselda Kuns DO Work Phone: [facility] 09-11-2024 09:22-0400 Body temperature 96.6 [degF] Griselda Kuns DO Work Phone: [facility] 09-11-2024 09:22-0400 Body weight 84 kg Griselda Kuns DO Work Phone: [facility] 09-11-2024 09:22-0400 Diastolic blood pressure 86 mm[Hg] Griselda Kuns DO Work Phone: [facility] 09-11-2024 09:22-0400 Heart rate 78 /min Griselda Kuns DO Work Phone: [facility] 09-11-2024 09:22-0400 Respiratory rate 16 /min Griselda Kuns DO Work Phone: [facility] 09-11-2024 09:22-0400 SaO2% (BldA) [Mass fraction] 98 % Griselda Kuns DO Work Phone: [facility] 09-11-2024 09:22-0400 Systolic blood pressure 122 mm[Hg] Griselda Kuns DO Work Phone: [facility] 07-31-2024 13:26-0500 Body mass index (BMI) [Ratio] 27.37 kg/m2 Elvi Cadena MD Work Phone: [facility] 07-31-2024 13:26-0500 Body weight 81.65 kg Elvi Cadena MD Work Phone: [facility] 07-31-2024 13:26-0500 Diastolic blood pressure 89 mm[Hg] Elvi Cadena MD Work Phone: [facility] 07-31-2024 13:26-0500 Heart rate 81 /min Elvi Cadena MD Work Phone: [facility] 07-31-2024 13:26-0500 Systolic blood pressure 131 mm[Hg] Elvi Cadena MD Work Phone: [facility] 07-03-2024 09:54-0500 Body height 172.72 cm Griselda Kuns DO Work Phone: [facility] 07-03-2024 09:54-0500 Body mass index (BMI) [Ratio] 28.4 kg/m2 Griselda Kuns DO Work Phone: [facility] 07-03-2024 09:54-0500 Body weight 84.82 kg Griselda Kuns DO Work Phone: [facility] 07-03-2024 09:54-0500 Diastolic blood pressure 70 mm[Hg] Griselda Kuns DO Work Phone: [facility] 07-03-2024 09:54-0500 Heart rate 81 /min Griselda Kuns DO Work Phone: [facility] 07-03-2024 09:54-0500 Respiratory rate 18 /min Griselda Kuns DO Work Phone: [facility] 07-03-2024 09:54-0500 SaO2% (BldA) [Mass fraction] 98 % Griselda Kuns DO Work Phone: [facility] 07-03-2024 09:54-0500 Systolic blood pressure 120 mm[Hg] Griselda Kuns DO Work Phone: [facility] 07-02-2024 14:18-0500 Body mass index (BMI) [Ratio] 28.28 kg/m2 Elvi Cadena MD Work Phone: [facility] 07-02-2024 14:18-0500 Body weight 84.37 kg Elvi Cadena MD Work Phone: [facility] 07-02-2024 14:18-0500 Diastolic blood pressure 77 mm[Hg] Elvi Cadena MD Work Phone: [facility] 07-02-2024 14:18-0500 Heart rate 86 /min Elvi Cadena MD Work Phone: [facility] 07-02-2024 14:18-0500 Systolic blood pressure 143 mm[Hg] Elvi Cadena MD Work Phone: [facility] 06-30-2024 08:56-0500 Body height 172.7 cm Camille Harris MD Work Phone: [facility] 06-30-2024 08:56-0500 Body mass index (BMI) [Ratio] 27.37 kg/m2 Camille Harris MD Work Phone: [facility] 06-30-2024 08:56-0500 Body weight 81.65 kg Camille Harris MD Work Phone: [facility] 06-30-2024 08:56-0500 Diastolic blood pressure 70 mm[Hg] Camille Harris MD Work Phone: [facility] 06-30-2024 08:56-0500 Heart rate 75 /min Camille Harris MD Work Phone: [facility] 06-30-2024 08:56-0500 Systolic blood pressure 124 mm[Hg] Camille Harris MD Work Phone: [facility] 05-21-2024 14:04-0500 Body height 172.7 cm Elvi Cadena MD Work Phone: [facility] 05-21-2024 14:04-0500 Body mass index (BMI) [Ratio] 26.46 kg/m2 Elvi Cadena MD Work Phone: [facility] 05-21-2024 14:04-0500 Body weight 78.93 kg Elvi Cadena MD Work Phone: [facility] 05-21-2024 14:04-0500 Diastolic blood pressure 82 mm[Hg] Elvi Cadena MD Work Phone: [facility] 05-21-2024 14:04-0500 Systolic blood pressure 120 mm[Hg] Elvi Cadena MD Work Phone: [facility] 04-28-2024 09:48-0500 Body height 172.[address] [facility] 04-28-2024 09:48-0500 Body mass index (BMI) [Ratio] 27 kg/m2 [facility] 04-28-2024 09:48-0500 Body weight 80.[address] [facility] 04-28-2024 09:48-0500 Diastolic blood pressure 76 mm[Hg] [facility] 04-28-2024 09:48-0500 Heart rate 61 /min [facility] 04-28-2024 09:48-0500 Respiratory rate 18 /min [facility] 04-28-2024 09:48-0500 SaO2% (BldA) [Mass fraction] 96 % [facility] 04-28-2024 09:48-0500 Systolic blood pressure 130 mm[Hg] [facility] 04-10-2024 12:11-0400 Body temperature 98.1 [degF] Camille Harris MD Work Phone: [facility] 04-10-2024 12:11-0400 Diastolic blood pressure 58 mm[Hg] Camille Harris MD Work Phone: [facility] 04-10-2024 12:11-0400 Heart rate 82 /min Camille Harris MD Work Phone: [facility] 04-10-2024 12:11-0400 Respiratory rate 17 /min Camille Harris MD Work Phone: [facility] 04-10-2024 12:11-0400 Systolic blood pressure 118 mm[Hg] Camille Harris MD Work Phone: [facility] 04-10-2024 09:20-0400 SaO2% (BldA) [Mass fraction] 93 % Camille Harris MD Work Phone: [facility] 04-09-2024 15:07-0400 Body temperature 37 Camille Harris MD Work Phone: [facility] 04-09-2024 15:07-0400 SaO2% (BldA) [Mass fraction] 100 % Camille Harris MD Work Phone: [facility] 04-09-2024 14:47-0400 Body temperature 37.0 degrees Celsius [facility] Comment on above: Performed By: #### [id number] #### TITUS Mercado ([id number]) [facility] ([facility]) [id number] [place] [address] 04-09-2024 14:47-0400 SaO2% (BldA) [Mass fraction] 100 % [facility] Comment on above: Performed By: #### [id number] #### TITUS Mercado ([id number]) [facility] ([facility]) [address] [place] [address] 04-09-2024 12:11-0400 Body height 172.7 cm Camille Harris MD Work Phone: [facility] 04-09-2024 12:11-0400 Body mass index (BMI) [Ratio] 27.12 kg/m2 Camille Harris MD Work Phone: [facility] 04-09-2024 12:11-0400 Body weight 80.9 kg Camille Harris MD Work Phone: [facility] 04-01-2024 10:47-0400 Body height 172.[address] [facility] 04-01-2024 10:47-0400 Body mass index (BMI) [Ratio] 27.2 kg/m2 [facility] 04-01-2024 10:47-0400 Body weight 81.[address] [facility] 04-01-2024 10:47-0400 Diastolic blood pressure 70 mm[Hg] [facility] 04-01-2024 10:47-0400 Heart rate 50 /min [facility] 04-01-2024 10:47-0400 Respiratory rate 16 /min [facility] 04-01-2024 10:47-0400 SaO2% (BldA) [Mass fraction] 99 % [facility] 04-01-2024 10:47-0400 Systolic blood pressure 120 mm[Hg] [facility] 01-31-2024 10:24-0400 Body height 172.[address] [facility] 01-31-2024 10:24-0400 Body mass index (BMI) [Ratio] 27.3 kg/m2 [facility] 01-31-2024 10:24-0400 Body weight 81.[address] [facility] 01-31-2024 10:24-0400 Diastolic blood pressure 70 mm[Hg] [facility] 01-31-2024 10:24-0400 Heart rate 75 /min [facility] 01-31-2024 10:24-0400 Respiratory rate 18 /min [facility] 01-31-2024 10:24-0400 SaO2% (BldA) [Mass fraction] 98 % [facility] 01-31-2024 10:24-0400 Systolic blood pressure 122 mm[Hg] [facility] 01-03-2024 13:36-0400 Body height 172.7 cm Camille Harris MD Work Phone: [facility] 01-03-2024 13:36-0400 Body mass index (BMI) [Ratio] 27.43 kg/m2 Camille Harris MD Work Phone: [facility] 01-03-2024 13:36-0400 Body weight 81.83 kg Camille Harris MD Work Phone: [facility] 01-03-2024 13:36-0400 Diastolic blood pressure 80 mm[Hg] Camille Harris MD Work Phone: [facility] 01-03-2024 13:36-0400 Heart rate 80 /min Camille Harris MD Work Phone: [facility] 01-03-2024 13:36-0400 Systolic blood pressure 160 mm[Hg] Camille Harris MD Work Phone: [facility] 12-13-2023 10:00-0400 Body mass index (BMI) [Ratio] 27.1 kg/m2 Ignacia Jack MD Work Phone: [facility] 12-13-2023 10:00-0400 Body temperature 97.5 [degF] Ignacia Jack MD Work Phone: [facility] 12-13-2023 10:00-0400 Body weight 80.83 kg Ignacia Jack MD Work Phone: [facility] 12-13-2023 10:00-0400 Diastolic blood pressure 59 mm[Hg] Ignacia Jack MD Work Phone: [facility] 12-13-2023 10:00-0400 Heart rate 92 /min Ignacia Jack MD Work Phone: [facility] 12-13-2023 10:00-0400 Respiratory rate 17 /min Ignacia Jack MD Work Phone: [facility] 12-13-2023 10:00-0400 SaO2% (BldA) [Mass fraction] 96 % Ignacia Jack MD Work Phone: [facility] 12-13-2023 10:00-0400 Systolic blood pressure 133 mm[Hg] Ignacia Jack MD Work Phone: [facility] 12-12-2023 13:08-0400 Body height 172.7 cm Solomon Milks PA-C Work Phone: [facility] 12-12-2023 13:08-0400 Body mass index (BMI) [Ratio] 26.91 kg/m2 Solomon Milks PA-C Work Phone: [facility] 12-12-2023 13:08-0400 Body weight 80.29 kg Solomon Milks PA-C Work Phone: [facility] 12-12-2023 13:08-0400 Diastolic blood pressure 70 mm[Hg] Solomon Milks PA-C Work Phone: [facility] 12-12-2023 13:08-0400 Heart rate 91 /min Solomon Milks PA-C Work Phone: [facility] 12-12-2023 13:08-0400 Systolic blood pressure 116 mm[Hg] Solomon Milks PA-C Work Phone: [facility] 12-03-2023 10:51-0400 Body height 172.72 cm DO Griselda Kuns Work Phone: [facility] 12-03-2023 10:51-0400 Body mass index (BMI) [Ratio] 26.1 kg/m2 DO Griselda Kuns Work Phone: [facility] 12-03-2023 10:51-0400 Body weight 78.01 kg DO Griselda Kuns Work Phone: [facility] 12-03-2023 10:51-0400 Diastolic blood pressure 82 mm[Hg] DO Griselda Kuns Work Phone: [facility] 12-03-2023 10:51-0400 Heart rate 97 /min DO Griselda Kuns Work Phone: [facility] 12-03-2023 10:51-0400 Respiratory rate 18 /min DO Griselda Kuns Work Phone: [facility] 12-03-2023 10:51-0400 SaO2% (BldA) [Mass fraction] 96 % DO Griselda Kuns Work Phone: [facility] 12-03-2023 10:51-0400 Systolic blood pressure 110 mm[Hg] DO Griselda Kuns Work Phone: [facility] 11-02-2023 09:49-0400 Body height 170.6 cm Memo Cole MD Work Phone: [facility] 11-02-2023 09:49-0400 Body mass index (BMI) [Ratio] 27.38 kg/m2 Memo Cole MD Work Phone: [facility] 11-02-2023 09:49-0400 Body temperature 97.7 [degF] Memo Cole MD Work Phone: [facility] 11-02-2023 09:49-0400 Body weight 79.7 kg Memo Cole MD Work Phone: [facility] 11-02-2023 09:49-0400 Diastolic blood pressure 76 mm[Hg] Memo Cole MD Work Phone: [facility] 11-02-2023 09:49-0400 Heart rate 72 /min Memo Cole MD Work Phone: [facility] 11-02-2023 09:49-0400 Respiratory rate 16 /min Memo Cole MD Work Phone: [facility] 11-02-2023 09:49-0400 SaO2% (BldA) [Mass fraction] 99 % Memo Cole MD Work Phone: [facility] 11-02-2023 09:49-0400 Systolic blood pressure 130 mm[Hg] Memo Cole MD Work Phone: [facility] 10-29-2023 10:32-0400 Body height 172.72 cm DO Griselda Kuns Work Phone: [facility] 10-29-2023 10:32-0400 Body mass index (BMI) [Ratio] 26.6 kg/m2 DO Griselda Kuns Work Phone: [facility] 10-29-2023 10:32-0400 Body weight 79.37 kg DO Griselda Kuns Work Phone: [facility] 10-29-2023 10:32-0400 Diastolic blood pressure 82 mm[Hg] DO Griselda Kuns Work Phone: [facility] 10-29-2023 10:32-0400 Heart rate 71 /min DO Griselda Kuns Work Phone: [facility] 10-29-2023 10:32-0400 Respiratory rate 16 /min DO Griselda Kuns Work Phone: [facility] 10-29-2023 10:32-0400 SaO2% (BldA) [Mass fraction] 98 % DO Griselda Kuns Work Phone: [facility] 10-29-2023 10:32-0400 Systolic blood pressure 128 mm[Hg] DO Griselda Kuns Work Phone: [facility] 10-18-2023 09:02-0400 Diastolic blood pressure 68 mm[Hg] DO Griselda Kuns Work Phone: [facility] 10-18-2023 09:02-0400 Systolic blood pressure 132 mm[Hg] DO Griselda Kuns Work Phone: [facility] 10-18-2023 08:58-0400 Body height 172.72 cm DO Griselda Kuns Work Phone: [facility] 10-18-2023 08:58-0400 Body mass index (BMI) [Ratio] 26.6 kg/m2 DO Griselda Kuns Work Phone: [facility] 10-18-2023 08:58-0400 Body weight 79.37 kg DO Griselda Kuns Work Phone: [facility] 10-18-2023 08:58-0400 Heart rate 57 /min DO Griselda Kuns Work Phone: [facility] 10-18-2023 08:58-0400 Respiratory rate 18 /min DO Griselda Kuns Work Phone: [facility] 10-18-2023 08:58-0400 SaO2% (BldA) [Mass fraction] 98 % DO Griselda Kuns Work Phone: [facility] 10-05-2023 09:37-0400 Body height 172.2 cm Ignacia Jack MD Work Phone: [facility] 10-05-2023 09:37-0400 Body mass index (BMI) [Ratio] 26.25 kg/m2 Ignacia Jack MD Work Phone: [facility] 10-05-2023 09:37-0400 Body temperature 97.3 [degF] Ignacia Jack MD Work Phone: [facility] 10-05-2023 09:37-0400 Body weight 77.84 kg Ignacia Jack MD Work Phone: [facility] 10-05-2023 09:37-0400 Diastolic blood pressure 68 mm[Hg] Ignacia Jack MD Work Phone: [facility] 10-05-2023 09:37-0400 Heart rate 81 /min Ignacia Jack MD Work Phone: [facility] 10-05-2023 09:37-0400 Respiratory rate 16 /min Ignacia Jack MD Work Phone: [facility] 10-05-2023 09:37-0400 SaO2% (BldA) [Mass fraction] 99 % Ignacia Jack MD Work Phone: [facility] 10-05-2023 09:37-0400 Systolic blood pressure 116 mm[Hg] Ignacia Jack MD Work Phone: [facility] 09-05-2023 13:44-0400 Diastolic blood pressure 99 mm[Hg] DO Griselda Kuns Work Phone: [facility] 09-05-2023 13:44-0400 Systolic blood pressure 160 mm[Hg] DO Griselda Kuns Work Phone: [facility] 09-05-2023 13:41-0400 Body height 172.72 cm DO Griselda Kuns Work Phone: [facility] 09-05-2023 13:41-0400 Body mass index (BMI) [Ratio] 27.8 kg/m2 DO Griselda Kuns Work Phone: [facility] 09-05-2023 13:41-0400 Body weight 83 kg DO Griselda Kuns Work Phone: [facility] 09-05-2023 13:41-0400 Heart rate 66 /min DO Griselda Kuns Work Phone: [facility] 09-05-2023 13:41-0400 Respiratory rate 18 /min DO Griselda Kuns Work Phone: [facility] 09-05-2023 13:41-0400 SaO2% (BldA) [Mass fraction] 99 % DO Griselda Kuns Work Phone: [facility] 09-05-2023 11:58-0400 Body height 172.72 cm DO Griselda Kuns Work Phone: [facility] 09-05-2023 11:58-0400 Body mass index (BMI) [Ratio] 27.3 kg/m2 DO Griselda Kuns Work Phone: [facility] 09-05-2023 11:58-0400 Body temperature 97.8 [degF] DO Griselda Kuns Work Phone: [facility] 09-05-2023 11:58-0400 Body weight 81.64 kg DO Griselda Kuns Work Phone: [facility] 09-05-2023 11:58-0400 Diastolic blood pressure 92 mm[Hg] DO Griselda Kuns Work Phone: [facility] 09-05-2023 11:58-0400 Heart rate 71 /min DO Griselda Kuns Work Phone: [facility] 09-05-2023 11:58-0400 SaO2% (BldA) [Mass fraction] 96 % DO Griselda Kuns Work Phone: [facility] 09-05-2023 11:58-0400 Systolic blood pressure 160 mm[Hg] DO Griselda Kuns Work Phone: [facility] 08-15-2023 15:41-0500 Body height 172.72 cm DO Griselda Kuns Work Phone: [facility] 08-15-2023 15:41-0500 Body mass index (BMI) [Ratio] 28.1 kg/m2 DO Griselda Kuns Work Phone: [facility] 08-15-2023 15:41-0500 Body weight 84.08 kg DO Griselda Kuns Work Phone: [facility] 08-15-2023 15:41-0500 Diastolic blood pressure 72 mm[Hg] DO Griselda Kuns Work Phone: [facility] 08-15-2023 15:41-0500 Heart rate 62 /min DO Griselda Kuns Work Phone: [facility] 08-15-2023 15:41-0500 Respiratory rate 18 /min DO Griselda Kuns Work Phone: [facility] 08-15-2023 15:41-0500 SaO2% (BldA) [Mass fraction] 99 % DO Griselda Kuns Work Phone: [facility] 08-15-2023 15:41-0500 Systolic blood pressure 128 mm[Hg] DO Griselda Kuns Work Phone: [facility] 08-02-2023 13:11-0500 Body height 172.72 cm DO Griselda Kuns Work Phone: [facility] 08-02-2023 13:11-0500 Body mass index (BMI) [Ratio] 27.9 kg/m2 DO Griselda Kuns Work Phone: [facility] 08-02-2023 13:11-0500 Body weight 83.46 kg DO Griselda Kuns Work Phone: [facility] 08-02-2023 13:11-0500 Diastolic blood pressure 70 mm[Hg] DO Griselda Kuns Work Phone: [facility] 08-02-2023 13:11-0500 Heart rate 68 /min DO Griselda Kuns Work Phone: [facility] 08-02-2023 13:11-0500 Respiratory rate 16 /min DO Griselda Kuns Work Phone: [facility] 08-02-2023 13:11-0500 SaO2% (BldA) [Mass fraction] 97 % DO Griselda Kuns Work Phone: [facility] 08-02-2023 13:11-0500 Systolic blood pressure 130 mm[Hg] DO Griselda Kuns Work Phone: [facility] 07-02-2023 09:30-0500 Body height 172.72 cm Griselda Kuns Other [facility] 07-02-2023 09:30-0500 Body mass index (BMI) [Ratio] 28.28 kg/m2 Griselda Kuns Other [employer] [facility] [employer] Other 07-02-2023 09:30-0500 Body weight 84.37 kg Griselda Kuns Other [employer] Other 07-02-2023 09:30-0500 Body weight 84.36 kg DO Griselda Kuns Work Phone: [facility] 07-02-2023 09:30-0500 Diastolic blood pressure 92 mm[Hg] Griselda Kuns Other [facility] 07-02-2023 09:30-0500 Respiratory rate 16 /min Griselda Kuns Other [employer] Other 07-02-2023 09:30-0500 SaO2% (BldA) [Mass fraction] 97 % Griselda Kuns Other [employer] Other 07-02-2023 09:30-0500 Systolic blood pressure 160 mm[Hg] Rgiselda Kuns Other [facility] 05-31-2023 13:45-0500 Body height 172.72 cm Griselda Kuns Other [facility] 05-31-2023 13:45-0500 Body mass index (BMI) [Ratio] 27.37 kg/m2 Griselda Kuns Other [employer] Other 05-31-2023 13:45-0500 Body weight 81.65 kg Griselda [employer] Other [employer] Other 05-31-2023 13:45-0500 Body weight 81.64 kg DO Griselda [employer] Work Phone: [facility] 05-31-2023 13:45-0500 Diastolic blood pressure 80 mm[Hg] Griselda Kuns Other [facility] 05-31-2023 13:45-0500 Respiratory rate 18 /min Griselda [employer] Other [employer] Other 05-31-2023 13:45-0500 SaO2% (BldA) [Mass fraction] 98 % [employer]eld[employer]ith [employer] Other [facility] [employer] Other 05-31-2023 13:45-0500 Systolic blood pressure 120 mm[Hg] Griselda [employer] Other [facility] 05-30-2023 11:15-0500 Body height 172.72 cm Ruddy Harvey Other [facility] 05-30-2023 11:15-0500 Body mass index (BMI) [Ratio] 27.52 kg/m2 Ruddy Harvey Other [employer] Other 05-30-2023 11:15-0500 Body temperature 97.8 [degF] Ruddy Harvey Other [employer] Other 05-30-2023 11:15-0500 Body weight 82.1 kg Ruddy Harvey Other [facility] 05-30-2023 11:15-0500 SaO2% (BldA) [Mass fraction] 98 % Ruddy Harvey Other [place] [facility] [employer] Other 05-15-2023 13:20-0500 Body height 172.72 cm Lilliam Grecooroge Other [facility] 05-15-2023 13:20-0500 Body mass index (BMI) [Ratio] 27.52 kg/m2 Lilliam Grecooroge Other [employer] [facility] [employer] Other 05-15-2023 13:20-0500 Body weight 82.1 kg Lilliam Grecooroge Other [facility] 05-15-2023 13:20-0500 Diastolic blood pressure 84 mm[Hg] Lilliam Kamla Other [facility] 05-15-2023 13:20-0500 Respiratory rate 18 /min Lilliam Grecooroge Other [employer] Other 05-15-2023 13:20-0500 SaO2% (BldA) [Mass fraction] 98 % Lilliam Grecooroge Other [employer] [facility] [employer] Other 05-15-2023 13:20-0500 Systolic blood pressure 142 mm[Hg] Lilliam Kamla Other [facility] 05-07-2023 13:16-0500 Diastolic blood pressure 78 mm[Hg] DO Griselda Kuns Work Phone: [facility] 05-07-2023 13:16-0500 Heart rate 75 /min DO Griselda Kuns Work Phone: [facility] 05-07-2023 13:16-0500 Respiratory rate 16 /min DO Griselda Kuns Work Phone: [facility] 05-07-2023 13:16-0500 SaO2% (BldA) [Mass fraction] 96 % DO Griselda Kuns Work Phone: [facility] 05-07-2023 13:16-0500 Systolic blood pressure 135 mm[Hg] DO Griselda Murray [employer] Work Phone: [facility] 05-07-2023 10:30-0500 Inhaled oxygen flow rate 3 L/min DO Griselda [employer] Work Phone: [facility] 05-07-2023 08:29-0500 Body height 172.72 cm DO Griselda Murray [employer] Work Phone: [facility] 05-07-2023 08:29-0500 Body weight 79.37 kg DO [employer] Work Phone: [facility] 05-03-2023 09:15-0500 Body height 172.72 cm Ruddy Harvey Other [employer] Other 05-03-2023 09:15-0500 Body mass index (BMI) [Ratio] 27.06 kg/m2 Ruddy Harvey Other [employer] Other 05-03-2023 09:15-0500 Body temperature 97.8 [degF] Ruddy Harvey Other [employer] Other 05-03-2023 09:15-0500 Body weight 80.74 kg Ruddy Harvey Other [employer] Other 05-03-2023 09:15-0500 Diastolic blood pressure 78 mm[Hg] Ruddy Harvey Other [employer] Other 05-03-2023 09:15-0500 SaO2% (BldA) [Mass fraction] 97 % Ruddy Harvey Other [employer] Other 05-03-2023 09:15-0500 Systolic blood pressure 146 mm[Hg] Ruddy Harvey Other [employer] Other 05-01-2023 10:30-0500 Body height 172.72 cm Griseldakeith Mendezs Other [employer] Other 05-01-2023 10:30-0500 Body mass index (BMI) [Ratio] 27.06 kg/m2 Griselda Andreas Other [employer] Other 05-01-2023 10:30-0500 Body weight 80.74 kg Griselda Andreas Other [employer] Other 05-01-2023 10:30-0500 Diastolic blood pressure 80 mm[Hg] Griselda Andreas Other [employer] Other 05-01-2023 10:30-0500 Respiratory rate 18 /min Griselda Andreas Other [employer] Other 05-01-2023 10:30-0500 SaO2% (BldA) [Mass fraction] 96 % Griseldakeith Mendezs Other [employer] Other 05-01-2023 10:30-0500 Systolic blood pressure 144 mm[Hg] Griselda Andreas Other [employer] Other 04-11-2023 10:40-0400 Body height 172.72 cm Lilliam Cason Other [employer] Other 04-11-2023 10:40-0400 Body mass index (BMI) [Ratio] 26.67 kg/m2 Lilliam Grecooroge Other [employer] Other 04-11-2023 10:40-0400 Body weight 79.56 kg Lilliam Cason Other [facility] [employer] Other 04-11-2023 10:40-0400 Diastolic blood pressure 80 mm[Hg] Lilliam Cason Other [employer] Other 04-11-2023 10:40-0400 SaO2% (BldA) [Mass fraction] 96 % Lilliam Cason Other [employer] [facility] [employer] Other 04-11-2023 10:40-0400 Systolic blood pressure 148 mm[Hg] Lilliam Cason Other [facility] [employer] Other 03-21-2023 02:42-0400 Diastolic blood pressure 98 mm[Hg] DO Griselda Murray [employer] Work Phone: [facility] 03-21-2023 02:42-0400 Heart rate 72 /min DO Griselda Murray [employer] Work Phone: [facility] 03-21-2023 02:42-0400 Respiratory rate 16 /min DO Griselda Kuns Work Phone: [facility] 03-21-2023 02:42-0400 SaO2% (BldA) [Mass fraction] 97 % DO Griselda Kuns Work Phone: [facility] 03-21-2023 02:42-0400 Systolic blood pressure 170 mm[Hg] DO Griselda Kuns Work Phone: [facility] 03-21-2023 00:12-0400 Body height 172.72 cm DO Griselda Kuns Work Phone: [facility] 03-21-2023 00:12-0400 Body temperature 98 [degF] DO Griselda Kuns Work Phone: [facility] 03-21-2023 00:12-0400 Body weight 79.37 kg DO Griselda Kuns Work Phone: [facility] 03-15-2023 10:30-0400 Body height 172.72 cm Griselda Kuns Other [employer] Other 03-15-2023 10:30-0400 Body mass index (BMI) [Ratio] 26.76 kg/m2 Griselda Kuns Other [employer] Other 03-15-2023 10:30-0400 Body weight 79.83 kg Griselda Kuns Other [employer] Other 03-15-2023 10:30-0400 Diastolic blood pressure 86 mm[Hg] Griselda Kuns Other [employer] Other 03-15-2023 10:30-0400 Respiratory rate 16 /min Griselda Kuns Other [employer] Other 03-15-2023 10:30-0400 SaO2% (BldA) [Mass fraction] 97 % Griselda Kuns Other [employer] Other 03-15-2023 10:30-0400 Systolic blood pressure 174 mm[Hg] Griselda Kuns Other [employer] Other 03-08-2023 10:00-0400 Body height 172.72 cm Griselda Kuns Other [employer] Other 03-08-2023 10:00-0400 Body mass index (BMI) [Ratio] 27.18 kg/m2 Griselda Kuns Other [employer] Other 03-08-2023 10:00-0400 Body weight 81.1 kg Griselda Kuns Other [facility] [employer] Other 03-08-2023 10:00-0400 Diastolic blood pressure 82 mm[Hg] Griselda Kuns Other [employer] Other 03-08-2023 10:00-0400 Respiratory rate 16 /min Griselda Kuns Other [employer] Other 03-08-2023 10:00-0400 SaO2% (BldA) [Mass fraction] 96 % Griselda Kuns Other [facility] [employer] Other 03-08-2023 10:00-0400 Systolic blood pressure 118 mm[Hg] Griselda Kuns Other [facility] [employer] Other 02-26-2023 14:13-0400 Body height 172.72 cm DO Griselda Kuns Work Phone: [facility] 02-26-2023 14:13-0400 Body temperature 98 [degF] DO Griselda Kuns Work Phone: [facility] 02-26-2023 14:13-0400 Body weight 78.6 kg DO Griselda Kuns Work Phone: [facility] 02-26-2023 14:13-0400 Diastolic blood pressure 77 mm[Hg] DO Griselda Kuns Work Phone: [facility] 02-26-2023 14:13-0400 Heart rate 56 /min DO Griselda Kuns Work Phone: [facility] 02-26-2023 14:13-0400 Respiratory rate 18 /min DO Griselda Kuns Work Phone: [facility] 02-26-2023 14:13-0400 SaO2% (BldA) [Mass fraction] 96 % DO Griselda Kuns Work Phone: [facility] 02-26-2023 14:13-0400 Systolic blood pressure 142 mm[Hg] DO Griselda Kuns Work Phone: [facility] 12-05-2022 10:15-0400 Body height 172.72 cm Griselda Andreas Other [employer] Other 12-05-2022 10:15-0400 Body mass index (BMI) [Ratio] 25.85 kg/m2 Griselda Andreas Other [employer] Other 12-05-2022 10:15-0400 Body weight 77.11 kg Griselda Andreas Other [employer] Other 12-05-2022 10:15-0400 Diastolic blood pressure 80 mm[Hg] Griselda Kuns Other [employer] Other 12-05-2022 10:15-0400 Respiratory rate 16 /min Griselda Andreas Other [employer] Other 12-05-2022 10:15-0400 SaO2% (BldA) [Mass fraction] 96 % Griselda Andreas Other [employer] Other 12-05-2022 10:15-0400 Systolic blood pressure 140 mm[Hg] Griselda Kuns Other [employer] Other 09-13-2022 10:57-0400 Body height 170.6 cm Kelly Perez PA-C Work Phone: [facility] 09-13-2022 10:57-0400 Body temperature 97.39 [degF] Kelly Perez PA-C Work Phone: [facility] 09-13-2022 10:57-0400 Body weight 77.34 kg Kelly Moorek PA-C Work Phone: [facility] 09-13-2022 10:57-0400 Diastolic blood pressure 61 mm[Hg] Kelly Moorek PA-C Work Phone: [facility] 09-13-2022 10:57-0400 Heart rate 70 /min Kelly Moorek PA-C Work Phone: [facility] 09-13-2022 10:57-0400 Respiratory rate 18 /min Kelly Moorek PA-C Work Phone: [facility] 09-13-2022 10:57-0400 SaO2% (BldA) [Mass fraction] 100 % Kelly Moorek PA-C Work Phone: [facility] 09-13-2022 10:57-0400 Systolic blood pressure 133 mm[Hg] Kelly Moorek PA-C Work Phone: [facility] 08-31-2022 11:15-0400 Body height 172.72 cm Griseldakeith Hastings Other [employer] Other 08-31-2022 11:15-0400 Body mass index (BMI) [Ratio] 26.79 kg/m2 Griselda Hastings Other [employer] Other 08-31-2022 11:15-0400 Body weight 79.92 kg Griselda [employer] Other [employer] Other 08-31-2022 11:15-0400 Diastolic blood pressure 78 mm[Hg] Griselda [employer] Other [employer] Other 08-31-2022 11:15-0400 Respiratory rate 16 /min Griselda blinkbox Other [employer] Other 08-31-2022 11:15-0400 SaO2% (BldA) [Mass fraction] 98 % Griselda Kuns Other [employer] Other 08-31-2022 11:15-0400 Systolic blood pressure 138 mm[Hg] Griselda Kuns Other [employer] Other 08-01-2022 10:30-0500 Body height 172.72 cm Griselda Kuns Other [employer] Other 08-01-2022 10:30-0500 Body mass index (BMI) [Ratio] 27.27 kg/m2 Griselda Kuns Other [employer] Other 08-01-2022 10:30-0500 Body weight 81.38 kg Griselda Kuns Other [employer] Other 08-01-2022 10:30-0500 Diastolic blood pressure 82 mm[Hg] Griselda Kuns Other [employer] Other 08-01-2022 10:30-0500 Respiratory rate 16 /min Griselda Kuns Other [employer] Other 08-01-2022 10:30-0500 SaO2% (BldA) [Mass fraction] 99 % Griselda Kuns Other [employer] Other 08-01-2022 10:30-0500 Systolic blood pressure 146 mm[Hg] Griselda Kuns Other [employer] Other 07-17-2022 09:45-0500 Diastolic blood pressure 98 mm[Hg] DO Griselda Kuns Work Phone: [facility] 07-17-2022 09:45-0500 Heart rate 69 /min DO Griselda Kuns Work Phone: [facility] 07-17-2022 09:45-0500 Respiratory rate 16 /min DO Griselda Kuns Work Phone: [facility] 07-17-2022 09:45-0500 SaO2% (BldA) [Mass fraction] 99 % DO Griselda Kuns Work Phone: [facility] 07-17-2022 09:45-0500 Systolic blood pressure 144 mm[Hg] DO Griselda Kuns Work Phone: [facility] 07-17-2022 07:58-0500 Body height 172.72 cm DO Griselda Kuns Work Phone: [facility] 07-17-2022 07:58-0500 Body weight 79.37 kg DO Griselda Kuns Work Phone: [facility] 06-28-2022 10:20-0500 Body height 172.72 cm Trish Blades Other [employer] Other 06-28-2022 10:20-0500 Body mass index (BMI) [Ratio] 26.67 kg/m2 Trish Blades Other [employer] Other 06-28-2022 10:20-0500 Body weight 79.56 kg Trish Blades Other [employer] Other 06-28-2022 10:20-0500 Diastolic blood pressure 80 mm[Hg] Trish Blades Other [employer] Other 06-28-2022 10:20-0500 Systolic blood pressure 140 mm[Hg] Trish Blades Other [employer] Other 05-26-2022 13:30-0500 Body height 172.72 cm Griselda Kuns Other [employer] Other 05-26-2022 13:30-0500 Body mass index (BMI) [Ratio] 26.7 kg/m2 Griselda Kuns Other [employer] Other 05-26-2022 13:30-0500 Body weight 79.65 kg Griselda Kuns Other [employer] Other 05-26-2022 13:30-0500 Diastolic blood pressure 82 mm[Hg] Griselda Kuns Other [employer] Other 05-26-2022 13:30-0500 Respiratory rate 18 /min Griselda Kuns Other [employer] Other 05-26-2022 13:30-0500 SaO2% (BldA) [Mass fraction] 98 % Griselda Kuns Other [employer] Other 05-26-2022 13:30-0500 Systolic blood pressure 144 mm[Hg] Griselda Kuns Other [employer] Other 04-17-2022 00:30-0400 Diastolic blood pressure 64 mm[Hg] DO Griselda Kuns Work Phone: [facility] 04-17-2022 00:30-0400 Heart rate 78 /min DO Griselda Kuns Work Phone: [facility] 04-17-2022 00:30-0400 Respiratory rate 16 /min DO Griselda Kuns Work Phone: [facility] 04-17-2022 00:30-0400 SaO2% (BldA) [Mass fraction] 97 % DO Griselda Kuns Work Phone: [facility] 04-17-2022 00:30-0400 Systolic blood pressure 135 mm[Hg] DO Griselda Kuns Work Phone: [facility] 04-16-2022 19:45-0400 Body height 172.72 cm DO Griselda Kuns Work Phone: [facility] 04-16-2022 19:45-0400 Body temperature 98.1 [degF] DO Griselda Kuns Work Phone: [facility] 04-16-2022 19:45-0400 Body weight 78 kg DO Griselda Kuns Work Phone: [facility] 04-06-2022 16:31-0400 Body height 172.72 cm DO Griselad Kuns Work Phone: [facility] 04-06-2022 16:31-0400 Body temperature 98.1 [degF] DO Griselda Kuns Work Phone: [facility] 04-06-2022 16:31-0400 Body weight 79.37 kg DO Griselda Kuns Work Phone: [facility] 04-06-2022 16:31-0400 Diastolic blood pressure 108 mm[Hg] DO Griselda Kuns Work Phone: [facility] 04-06-2022 16:31-0400 Heart rate 95 /min DO Griselda Kuns Work Phone: [facility] 04-06-2022 16:31-0400 Respiratory rate 19 /min DO Griselda Kuns Work Phone: [facility] 04-06-2022 16:31-0400 SaO2% (BldA) [Mass fraction] 97 % DO Griselda Kuns Work Phone: [facility] 04-06-2022 16:31-0400 Systolic blood pressure 138 mm[Hg] DO Griselda Kuns Work Phone: [facility] 03-16-2022 13:30-0400 Body height 172.72 cm Griselda Kuns Other [employer] Other 03-16-2022 13:30-0400 Body mass index (BMI) [Ratio] 26.91 kg/m2 Griselda Kuns Other [employer] Other 03-16-2022 13:30-0400 Body weight 80.29 kg Griselda Kuns Other [employer] Other 03-16-2022 13:30-0400 Diastolic blood pressure 80 mm[Hg] Griselda Kuns Other [employer] Other 03-16-2022 13:30-0400 Respiratory rate 16 /min Griselda Andreas Other [employer] Other 03-16-2022 13:30-0400 SaO2% (BldA) [Mass fraction] 97 % Griselda Andreas Other [employer] Other 03-16-2022 13:30-0400 Systolic blood pressure 140 mm[Hg] Griselda Kuns Other [employer] Other 01-30-2022 12:00-0400 Body height 172.72 cm Griselda Kuns Other [employer] Other 01-30-2022 12:00-0400 Body mass index (BMI) [Ratio] 26.3 kg/m2 Griselda Kuns Other [employer] Other 01-30-2022 12:00-0400 Body weight 78.47 kg Griselda Kuns Other [employer] Other 01-30-2022 12:00-0400 Diastolic blood pressure 82 mm[Hg] Griselda Kuns Other [employer] Other 01-30-2022 12:00-0400 Respiratory rate 16 /min Griselda Kuns Other [employer] Other 01-30-2022 12:00-0400 SaO2% (BldA) [Mass fraction] 99 % Griselda Kuns Other [employer] Other 01-30-2022 12:00-0400 Systolic blood pressure 146 mm[Hg] Rgiselda Kuns Other [employer] Other 12-26-2021 11:00-0400 Body height 172.72 cm Griselda Kuns Other [employer] Other 12-26-2021 11:00-0400 Body mass index (BMI) [Ratio] 26.61 kg/m2 Griselda Kuns Other [employer] Other 12-26-2021 11:00-0400 Body weight 79.38 kg Griselda Kuns Other [employer] Other 12-26-2021 11:00-0400 Diastolic blood pressure 80 mm[Hg] Griselda Kuns Other [employer] Other 12-26-2021 11:00-0400 Respiratory rate 16 /min Griselda Kuns Other [employer] Other 12-26-2021 11:00-0400 SaO2% (BldA) [Mass fraction] 96 % Griselda Kuns Other [employer] Other 12-26-2021 11:00-0400 Systolic blood pressure 166 mm[Hg] Griselda Kuns Other [employer] Other 12-05-2021 10:15-0400 Body height 172.72 cm Griselda Kuns Other [employer] Other 12-05-2021 10:15-0400 Body mass index (BMI) [Ratio] 269.71 kg/m2 Griselda Kuns Other [employer] Other 12-05-2021 10:15-0400 Body weight 804.69 kg Griselda Kuns Other [employer] Other 12-05-2021 10:15-0400 Diastolic blood pressure 72 mm[Hg] Griselda Kuns Other [employer] Other 12-05-2021 10:15-0400 Respiratory rate 18 /min Girselda Kuns Other [employer] Other 12-05-2021 10:15-0400 SaO2% (BldA) [Mass fraction] 99 % Griselda Kuns Other [employer] Other 12-05-2021 10:15-0400 Systolic blood pressure 130 mm[Hg] Griselda Kuns Other [employer] Other 11-08-2021 11:15-0400 Body height 172.72 cm Griselda Kuns Other [employer] Other 11-08-2021 11:15-0400 Body mass index (BMI) [Ratio] 27.06 kg/m2 Griseldakeith Mendezs Other [employer] Other 11-08-2021 11:15-0400 Body weight 80.74 kg Griseldakeith Mendezs Other [facility] [employer] Other 11-08-2021 11:15-0400 Diastolic blood pressure 80 mm[Hg] Griseldakeith Mendezs Other [employer] Other 11-08-2021 11:15-0400 Respiratory rate 16 /min Griseldakeith Hastings Other [employer] Other 11-08-2021 11:15-0400 SaO2% (BldA) [Mass fraction] 97 % Griseldakeith Hastings Other [facility] [employer] Other 11-08-2021 11:15-0400 Systolic blood pressure 128 mm[Hg] Griseldakeith Mendezs Other [facility] [employer] Other 11-03-2021 09:38-0400 Body height 170.51 cm Griselda R Kuns Work Phone: [facility] Work Phone: 11-03-2021 09:38-0400 Body mass index (BMI) [Ratio] 27.05 kg/m2 Griselda R Kuns Work Phone: [facility] Work Phone: 11-03-2021 09:38-0400 Body surface area Derived from formula 1.91 m2 Griselda R Kuns Work Phone: [facility] Work Phone: 11-03-2021 09:38-0400 Body temperature 98.2 [degF] Griselda R Darling Work Phone: [facility] Work Phone: 11-03-2021 09:38-0400 Body weight 78.65 kg Griselda Neisha Hastings Work Phone: [facility] Work Phone: 11-03-2021 09:38-0400 Diastolic blood pressure 67 mm[Hg] Griselda Driver Darling Work Phone: [facility] Work Phone: 11-03-2021 09:38-0400 Heart rate 63 /min Griselda Driver Darling Work Phone: [facility] Work Phone: 11-03-2021 09:38-0400 Respiratory rate 16 /min Griselda Neisha Hastings Work Phone: [facility] Work Phone: 11-03-2021 09:38-0400 SaO2% (BldA) [Mass fraction] 99 % Griselda Neisha Hastings Work Phone: [facility] Work Phone: 11-03-2021 09:38-0400 Systolic blood pressure 147 mm[Hg] Griselda Driver Darling Work Phone: [facility] Work Phone: 11-03-2021 09:38-0400 7 1 Griselda Neisha Hastings Work Phone: [facility] Work Phone: Comment on above: [employer] 11-01-2021 13:30-0400 Body height 172.72 cm Griselda Hastings Other [employer] Other 11-01-2021 13:30-0400 Body mass index (BMI) [Ratio] 26.61 kg/m2 Griselda Kuns Other [employer] Other 11-01-2021 13:30-0400 Body weight 79.38 kg Griselda Kuns Other [employer] Other 11-01-2021 13:30-0400 Diastolic blood pressure 78 mm[Hg] Griselda Kuns Other [employer] Other 11-01-2021 13:30-0400 Respiratory rate 18 /min Griselda Kuns Other [employer] Other 11-01-2021 13:30-0400 SaO2% (BldA) [Mass fraction] 99 % Griselda Andreas Other [employer] Other 11-01-2021 13:30-0400 Systolic blood pressure 140 mm[Hg] Griselda Kuns Other [employer] Other 10-24-2021 09:45-0400 Body height 172.72 cm Sheng Schneider Other [employer] Other 10-24-2021 09:45-0400 Body mass index (BMI) [Ratio] 26.76 kg/m2 Sheng Schneider Other [employer] Other 10-24-2021 09:45-0400 Body weight 79.83 kg Sheng Schneider Other [employer] Other 10-13-2021 09:50-0400 Body height 172 cm [...] 09-19-2021 10:45-0400 Body height 172.72 cm Griselda Hastings Other [employer] Other 09-19-2021 10:45-0400 Body mass index (BMI) [Ratio] 26.15 kg/m2 Griselda Hastings Other [employer] Other 09-19-2021 10:45-0400 Body weight 78.02 kg Griselda Hastings Other [employer] Other 09-19-2021 10:45-0400 Diastolic blood pressure 80 mm[Hg] Griselda Hastings Other [employer] Other 09-19-2021 10:45-0400 Respiratory rate 18 /min Griselda Hastings Other [employer] Other 09-19-2021 10:45-0400 SaO2% (BldA) [Mass fraction] 99 % Griselda Kuns Other [employer] Other 09-19-2021 10:45-0400 Systolic blood pressure 140 mm[Hg] Griselda Kuns Other [employer] Other 06-30-2021 13:30-0500 Body height 172.72 cm Griselda Kuns Other [employer] Other 04-14-2021 08:45-0400 Body height 172.72 cm Griselda Kuns Other [employer] Other 04-14-2021 08:45-0400 Body mass index (BMI) [Ratio] 25.85 kg/m2 Grsielda Kuns Other [employer] Other 04-14-2021 08:45-0400 Body weight 77.11 kg Griselda Kuns Other [employer] Other 04-14-2021 08:45-0400 Diastolic blood pressure 80 mm[Hg] Griselda Kuns Other [employer] Other 04-14-2021 08:45-0400 Respiratory rate 16 /min Griselda Kuns Other [employer] Other 04-14-2021 08:45-0400 SaO2% (BldA) [Mass fraction] 99 % Griselda Kuns Other [employer] Other 04-14-2021 08:45-0400 Systolic blood pressure 124 mm[Hg] Griselda Kuns Other [facility] [employer] Other Encounters Encounter Date Encounter Type Care Provider Facility Start: 02-04-2025 End: 02-04-2025 ambulatory ELVI CADENA Not Available Start: 02-04-2025 End: 02-04-2025 Bamboo flowspeggy Cadena MD Work Phone: [facility] Start: 02-04-2025 End: 02-04-2025 Bamboo flowspeggy Cadena MD Work Phone: [facility] Start: 01-12-2025 End: 01-12-2025 ambulatory Griselda Hastings DO Work Phone: [facility] Work Phone: Start: 01-12-2025 End: 01-12-2025 Patient encounter procedure Solomon Mullins [facility] Work Phone: Start: 01-08-2025 End: 01-08-2025 Bamboo flowsheet Karime Northeim PA Work Phone: [facility] Start: 01-08-2025 End: 01-08-2025 Bamboo flowsheet Karime Northeim PA Work Phone: [facility] Start: 01-08-2025 End: 01-08-2025 Office outpatient visit 15 minutes Karime Northeim PA Work Phone: [facility] Comment on above: Melanocytic nevus of trunk (Primary Dx); Seborrheic keratosis; Inflamed seborrheic keratosis; Actinic keratosis; Capillary angioma; History of SCC (squamous cell carcinoma) of skin Start: 01-08-2025 End: 01-08-2025 ambulatory KARIME NORTHEIM Not Available Start: 12-29-2024 End: 12-29-2024 ambulatory DAVIDVIVIANA HARRIS Not Available Start: 12-24-2024 End: 12-24-2024 Bamboo flowsheet Elvi Cadena MD Work Phone: [facility] Start: 12-24-2024 End: 12-24-2024 Bamboo flowsheet Elvi Cadean MD Work Phone: [facility] Start: 12-24-2024 End: 12-24-2024 Clinical Support Elvi Cadena MD Work Phone: [facility] Comment on above: Nerve root and plexu s disorder, unspecified (Primary Dx); Acute pain of left shoulder Start: 2024 End: 2024 Patient encounter procedure Griselda Kuns DO Work Phone: [facility] Start: 2024 End: 2024 ambulatory Griselda Kuns DO Work Phone: [facility] Work Phone: Start: 11-19-2024 End: 11-19-2024 ambulatory Griselda Kuns DO Work Phone: [facility] Work Phone: Start: 11-19-2024 End: 11-19-2024 Patient encounter procedure Griselda Kuns DO Work Phone: [facility] Work Phone: Start: 11-17-2024 End: 11-17-2024 ambulatory Griselda Kuns DO Work Phone: [facility] Work Phone: Start: 11-17-2024 End: 11-17-2024 Patient encounter procedure Griselda Kuns DO Work Phone: [facility] Work Phone: Start: 11-12-2024 End: 11-12-2024 Bamboo flowsheet Elvi Cadena MD Work Phone: [facility] Start: 11-12-2024 End: 11-12-2024 Bamboo flowsheet Elvi Cadena MD Work Phone: [facility] Start: 11-12-2024 End: 11-12-2024 Clinical Support Elvi Cadena MD Work Phone: [facility] Comment on above: Nerve root and plexu s disorder, unspecified (Primary Dx); Acute pain of left shoulder Start: 11-07-2024 End: 11-07-2024 ambulatory MEMO COLE Facility:[facility] Start: 11-05-2024 Non-patient / Non-visit Griselda Kuns DO Work Phone[facility] Work Phone: Start: 11-05-2024 End: 11-05-2024 Admission to same day surgery center Griselda Kuns DO Work Phone: [facility] Work Phone: Start: 11-05-2024 End: 11-05-2024 ambulatory Griselda Kuns Facility:[facility] Start: 11-03-2024 End: 11-03-2024 Telephone encounter Memo Cole MD Work Phone: Hematology/Oncology Comment on above: Orders Start: 11-03-2024 Non-patient / Non-visit Griselda Kuns DO Work Phone[facility] Work Phone: Start: 11-03-2024 ambulatory MEMO CURTIS Facilit y:[facility] Start: 11-03-2024 End: 11-03-2024 Subsequent hospital visit by physician Arrival Time Radiology Work Phone: Radiology [facility] Comment on above: 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] Start: 10-27-2024 End: 10-27-2024 ambulatory Griselda Kuns DO Work Phone: [facility] Work Phone: Start: 10-27-2024 End: 10-27-2024 Patient encounter procedure Griselda Kuns DO Work Phone: [facility] Work Phone: Start: 10-21-2024 End: 10-21-2024 Subsequent hospital visit by physician Rad External Film EF [facility] [employer]TERNAL [employer] Comment on above: Arrived Start: 10-21-2024 End: 10-21-2024 ambulatory [facility] Start: 10-13-2024 End: 10-13-2024 Office outpatient visit 40 minutes Camille Harris MD Work Phone: [facility] Comment on above: Status post cervical spinal fusion (Primary Dx) Start: 10-13-2024 End: 10-13-2024 ambulatory [facility] Start: 10-10-2024 End: 10-10-2024 ambulatory Griselda Kuns DO Work Phone: [facility] Work Phone: Start: 10-10-2024 End: 10-10-2024 Patient encounter procedure Griselda Kuns DO Work Phone: [facility] Work Phone: Start: 10-10-2024 End: 10-10-2024 Patient encounter procedure Griselda Kuns DO Work Phone: [facility] [place] Work Phone: Start: 10-10-2024 End: 10-10-2024 ambulatory Griselda Kuns DO Work Phone: [facility] Work Phone: Start: 10-07-2024 End: 10-07-2024 Patient encounter procedure Griselda Kuns DO Work Phone: [facility] [place] Work Phone: Start: 10-07-2024 End: 10-07-2024 ambulatory Griselda Kuns DO Work Phone: [facility] Work Phone: Start: 10-06-2024 End: 10-06-2024 Emergency department patient visit Griselda Hastings DO Work Phone: [facility]-Emergency Room Work Phone: Start: 09-22-2024 End: 09-22-2024 ambulatory Sarina Ramsey MD Facility:[facility] Start: 09-20-2024 End: 09-20-2024 Emergency department patient visit Griselda Hastings DO Work Phone: [facility]-Emergency Room Work Phone: Start: 09-15-2024 End: 09-15-2024 ambulatory Sarina Ramsey MD Facility:[facility] Start: 09-11-2024 End: 09-11-2024 Bamboo flowsheet Elvi Cadena MD Work Phone: [facility] Start: 09-11-2024 End: 09-11-2024 Bamboo flowsheet Elvi Cadena MD Work Phone: [facility] Start: 09-11-2024 End: 09-11-2024 Clinical Support Elvi Cadena MD Work Phone: [facility] Comment on above: Nerve root and plexu s disorder, unspecified (Primary Dx) Start: 09-11-2024 End: 09-11-2024 Patient encounter procedure Griselda Mendezs DO Work Phone: [facility] Work Phone: Start: 09-11-2024 End: 09-11-2024 ambulatory Griseldakeith Mendezs DO Work Phone: [facility] Work Phone: Start: 07-31-2024 End: 07-31-2024 Bamboo flowsheet Elvi Cadena MD Work Phone: [facility] Start: 07-31-2024 End: 07-31-2024 Bamboo flowsheet Elvi Cadena MD Work Phone: [facility] Start: 07-31-2024 End: 07-31-2024 Clinical Support Elvi Cadena MD Work Phone: [facility] Comment on above: Nerve root and plexu s disorder, unspecified (Primary Dx) Start: 07-28-2024 End: 07-28-2024 ambulatory Sarina Ramsey MD Facility:[facility] Start: 07-07-2024 End: 07-07-2024 ambulatory Sarina Ramsey MD Facility:[facility] Start: 07-03-2024 End: 07-03-2024 ambulatory Griselda Hastings DO Work Phone: [facility] Work Phone: Start: 07-03-2024 End: 07-03-2024 Patient encounter procedure Griselda Darling DO Work Phone: [facility] [place] Work Phone: Start: 07-02-2024 End: 07-02-2024 Bamboo flowsheet Elvi Cadena MD Work Phone: [facility] Start: 07-02-2024 End: 07-02-2024 Bamboo flowsheet Elvi Cadena MD Work Phone: [facility] Start: 07-02-2024 End: 07-02-2024 Clinical Support Elvi Cadena MD Work Phone: [facility] Comment on above: Nerve root and plexu s disorder, unspecified (Primary Dx) Start: 06-30-2024 End: 06-30-2024 Postop follow up visit related to original px Camille Harris MD Work Phone: [facility] Comment on above: Status post cervical spinal fusion (Primary Dx) Start: 06-30-2024 End: 06-30-2024 ambulatory [facility] Amb[facility] Start: 06-24-2024 End: 06-24-2024 Patient encounter procedure Griselda Hastings DO Work Phone: [facility]-XRay [facility] Work Phone: Start: 06-24-2024 End: 06-24-2024 ambulatory Griselda Hastings DO Work Phone: [facility] Work Phone: Start: 05-21-2024 End: 05-21-2024 Bamboo flowsheet Elvi Cadena MD Work Phone: [facility] Start: 05-21-2024 End: 05-21-2024 Bamboo flowsheet Elvi Cadena MD Work Phone: [facility] Start: 05-21-2024 End: 05-21-2024 Clinical Support Elvi Cadena MD Work Phone: [facility] Comment on above: Other nerve root and plexus disorders (Primary Dx); Cervical paraspinal muscle spasm; Cervical stenosis of spinal canal Start: 04-30-2024 End: 04-30-2024 Postop follow up visit related to original px Solomon Narayanan PA-C Work Phone: [facility] Comment on above: Cervical radiculopat hy (Primary Dx); Status post cervical spinal fusion; Acute postoperative pain; Muscle spasms of neck Start: 04-30-2024 End: 04-30-2024 ambulatory [facility] Start: 04-28-2024 End: 04-28-2024 ambulatory [facility] Work Phone: Start: 04-28-2024 End: 04-28-2024 Patient encounter procedure [facility] Work Phone: Start: 04-09-2024 End: 04-10-2024 ambulatory [facility] Start: 04-09-2024 End: 04-10-2024 Evaluation and management of inpatient Camille Harris MD Work Phone: [facility] [place] Comment on above: Cervical radiculopat hy (Primary Dx); Senile osteoporosis Start: 04-01-2024 End: 04-01-2024 ambulatory [facility] Work Phone: Start: 04-01-2024 End: 04-01-2024 Patient encounter procedure [facility] [place] Work Phone: Start: 03-31-2024 End: 03-31-2024 Subsequent hospital visit by physician Rad External Film EF RAD EXTERNAL FILM [facility]IRTUAL Comment on above: Arrived Start: 03-31-2024 End: 03-31-2024 ambulatory [facility] Start: 03-26-2024 End: 03-26-2024 ambulatory [facility] Start: 03-19-2024 End: 03-19-2024 ambulatory [facility] Start: 02-13-2024 End: 02-13-2024 Subsequent hospital visit by physician [place] X-[facility] Comment on above: Cervical radiculopat hy Start: 02-13-2024 End: 02-13-2024 ambulatory [facility] Start: 02-13-2024 End: 02-13-2024 ambulatory [facility] Start: 02-11-2024 End: 02-12-2024 ambulatory [facility] Start: 02-11-2024 End: 02-11-2024 ambulatory [facility] Start: 02-11-2024 End: 02-11-2024 Subsequent hospital visit by physician Daniel Reynaga1800 Cr Nonv1 Holter/Ecg Resource [facility] [place] Comment on above: Cervical radiculopat hy; Senile osteoporosis Start: 02-04-2024 End: 02-04-2024 ambulatory [facility] Start: 01-31-2024 End: 01-31-2024 ambulatory [facility] Work Phone: Start: 01-31-2024 End: 01-31-2024 Patient encounter procedure [facility] [place] Work Phone: Start: 01-03-2024 End: 01-03-2024 Office outpatient new 60 minutes Camille Harris MD Work Phone: [facility] Comment on above: Cervical radiculopat hy (Primary Dx); Senile osteoporosis Start: 12-17-2023 End: 12-17-2023 ambulatory Sarina Ramsey MD Facility:[facility] Start: 12-13-2023 End: 12-13-2023 Office outpatient visit 40 minutes Ignacia Jack MD Work Phone: [facility] 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) Start: 12-13-2023 End: 12-13-2023 ambulatory IGNACIA JACK [facility] Start: 12-13-2023 End: 12-13-2023 Subsequent hospital visit by physician [facility] M[facility] [address] 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) Start: 12-13-2023 End: 12-13-2023 ambulatory SHIMON HEATON [facility] Start: 12-12-2023 End: 12-12-2023 Office outpatient new 45 minutes Solomon Narayanan PA-C Work Phone: [facility] Comment on above: Cervical radiculopat hy (Primary Dx); Occipital neuralgia of left side; Balance problem Start: 12-03-2023 End: 12-03-2023 ambulatory DO Griselda Kuns Work Phone: [facility] Work Phone: Start: 12-03-2023 End: 12-03-2023 Patient encounter procedure DO Griselda Kuns Work Phone: [facility] [place] Work Phone: Start: 11-02-2023 End: 11-02-2023 Office outpatient visit 25 minutes Memo Cole MD Work Phone: Hematology/Oncology Comment on above: 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) Start: 10-29-2023 End: 10-29-2023 ambulatory DO Griselda Kuns Work Phone: [facility] Work Phone: Start: 10-29-2023 End: 10-29-2023 Patient encounter procedure DO Griselda Kuns Work Phone: [facility] Family [facility] [place] Work Phone: Start: 10-26-2023 Non-patient / Non-visit DO Katy tt Kuns Work Phone: 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 Work Phone: Start: 10-09-2023 End: 10-09-2023 Patient encounter procedure DO Griselda Kuns Work Phone: [facility] [place] Work Phone: Start: 10-05-2023 End: 10-05-2023 Office outpatient new 60 minutes Ignacia Jack MD Work Phone: [facility] Comment on above: Brainstem lesion (Pr imary Dx); Pontine glioma (Multi) Start: 10-01-2023 End: 10-01-2023 ambulatory Sarina Ramsey MD Facility:[facility] Start: 09-19-2023 End: 09-19-2023 Subsequent hospital visit by physician Rad External Film EF RAD EXTERNAL FILM VIRTUAL Comment on above: Arrived Start: 09-05-2023 End: 09-05-2023 ambulatory DO Griselda Kuns Work Phone: [facility] Work Phone: Start: 09-05-2023 End: 09-05-2023 Patient encounter procedure DO Griselda Kuns Work Phone: [facility] Cardiology Work Phone: Start: 09-05-2023 End: 09-05-2023 ambulatory DO Griselda Kuns Work Phone: [facility] Work Phone: Start: 09-05-2023 End: 09-05-2023 Patient encounter procedure DO Griselda Kuns Work Phone: [facility] Vascular Surgery Work Phone: Start: 08-15-2023 End: 08-15-2023 Patient encounter procedure DO Griselda Kuns Work Phone: [facility] [place] Work Phone: Start: 08-02-2023 End: 08-02-2023 ambulatory DO Griselda Kuns Work Phone: [facility] Work Phone: Start: 08-02-2023 End: 08-02-2023 Patient encounter procedure DO Griselda Kuns Work Phone: [facility] Family [facility] [place] Work Phone: Start: 07-26-2023 Chart abstracting Nikole Mota ANIMAL KILLER Work Phone: [facility] Start: 07-19-2023 Bamboo flowsheet Nikole Mota ANIMAL KILLER Work Phone: [facility] Start: 07-19-2023 Bamboo flowsheet Nikole Mota ANIMAL KILLER Work Phone: [facility] Start: 07-18-2023 End: 07-21-2023 ambulatory ADDIS KHAN [facility] Start: 07-02-2023 End: 07-02-2023 ambulatory Griselda Kuns Other fflick Other Start: 07-02-2023 Office outpatient vi sit 25 minutes Griselda Kuns [facility] [place] Start: 07-02-2023 End: 07-02-2023 Patient encounter procedure DO Griselda Kuns Work Phone: [facility] Medicine [place] Work Phone: Start: 05-31-2023 End: 05-31-2023 ambulatory Griselda Kuns Other [facility]lick Other Start: 05-31-2023 Office outpatient vi sit 25 minutes Griselda Kuns [facility] [place] Start: 05-30-2023 Office outpatient vi sit 15 minutes Ruddy Harvey [facility] Vascular Surgery Start: 05-30-2023 End: 05-30-2023 ambulatory DO Griselda Kuns Work Phone: [facility] Other Start: 05-30-2023 End: 05-31-2023 Patient encounter procedure DO Griselda Kuns Work Phone: [facility]-Ultrasound [facility] Vascular Start: 05-30-2023 End: 05-30-2023 Patient encounter procedure DO Griselda Kuns Work Phone: [facility] Vascular Surgery Work Phone: Start: 05-15-2023 End: 05-15-2023 ambulatory Lilliam Kamla Other [facility] Other Start: 05-15-2023 Office outpatient vi sit 25 minutes Lilliam Cason [facility] Start: 05-15-2023 Telephone encounter Lilliam Cason G Hse Advisor Start: 05-15-2023 End: 05-15-2023 Patient encounter procedure DO Griselda Kuns Work Phone: [facility] Work Phone: Start: 05-07-2023 End: 05-07-2023 Admission to same day surgery center DO Griselda Kuns Work Phone: [facility]-Interventional Radiology Work Phone: Start: 05-07-2023 End: 05-07-2023 ambulatory DO Griselda Kuns Work Phone: [facility] Work Phone: Start: 05-04-2023 End: 05-04-2023 ambulatory DO Griselda Kuns Work Phone: [facility] Work Phone: Start: 05-04-2023 End: 05-04-2023 Patient encounter procedure DO Griselda Kuns Work Phone: [facility]-CT Scan [place] Work Phone: Start: 05-03-2023 End: 05-03-2023 ambulatory Ruddy Harvey Other [facility] Other Start: 05-03-2023 Office outpatient ne w 45 minutes Ruddy Harvey [facility] Start: 05-03-2023 Telephone encounter Ruddy craft [facility] Hse Advisor Start: 05-01-2023 End: 05-01-2023 ambulatory Griselda Kuns Other [facility] Other Start: 05-01-2023 Office outpatient vi sit 25 minutes Griselda Kuns [facility] [place] Start: 04-25-2023 End: 04-25-2023 ambulatory DO Griselda Kuns Work Phone: [facility] Work Phone: Start: 04-25-2023 End: 04-25-2023 Patient encounter procedure DO Griselda Kuns Work Phone: [facility]-Ultrasound [place] Work Phone: Start: 04-12-2023 End: 04-12-2023 ambulatory Lilliam Kamla Other [facility] Other Start: 04-12-2023 Telephone encounter Lilliam Kamla [facility] Start: 04-11-2023 End: 04-11-2023 ambulatory Lilliam Kamla Other [facility] Other Start: 04-11-2023 Office outpatient ne w 45 minutes Lilliam Kamla [facility] Start: 04-10-2023 End: 04-10-2023 ambulatory Griselda Kuns Other [facility] Other Start: 04-10-2023 Telephone encounter Griselda Kuns [facility] [place] Start: 03-30-2023 End: 03-30-2023 ambulatory DO Griselda Kuns Work Phone: [facility] Work Phone: Start: 03-30-2023 End: 03-30-2023 Patient encounter procedure DO Griselda Kuns Work Phone: [facility]-Lab [place] Work Phone: Start: 03-21-2023 End: 03-21-2023 Emergency department patient visit DO Griselda Kuns Work Phone: [facility]-Emergency Room Work Phone: Start: 03-15-2023 End: 03-15-2023 ambulatory Griselda Kuns Other [facility] Other Start: 03-15-2023 Office outpatient vi sit 25 minutes Griselda Kuns [facility] Start: 03-08-2023 End: 03-08-2023 ambulatory Griselda Kuns Other [facility] Other Start: 03-08-2023 Office outpatient vi sit 25 minutes Griselda Kuns [facility] Start: 02-26-2023 End: 02-26-2023 Emergency department patient visit DO Griselda Kuns Work Phone: [facility]-Emergency Room Work Phone: Start: 12-28-[address] BRET Lawrence ity:UNKNOWN Start: 12-05-2022 End: 12-05-2022 ambulatory Griselda Kuns Other [facility] Other Start: 12-05-2022 Office outpatient vi sit 25 minutes Griselda Kuns [facility] Start: 11-15-2022 End: 11-15-2022 ambulatory DO Griselda Kuns Work Phone: [facility] Work Phone: Start: 11-15-2022 End: 11-15-2022 Patient encounter procedure DO Griselda Kuns Work Phone: [facility]-MRI [address] Work Phone: Start: 10-27-2022 End: 10-27-2022 Subsequent hospital visit by physician Arrival Time Radiology Work Phone: Radiology [facility] Comment on above: Malignant neoplasm o f head, 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] Start: 10-24-2022 End: 10-24-2022 ambulatory DO Griselda Kuns Work Phone: [facility] Work Phone: Start: 10-24-2022 End: 10-24-2022 Patient encounter procedure DO Griselda Kuns Work Phone: 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] Start: 09-18-2022 Telephone encounter Kelly ghosh PA-C Work Phone: [facility] Comment on above: Patient Question Start: 09-13-2022 End: 09-13-2022 Patient encounter procedure Kelly Perez PA-C Work Phone: [facility] Comment on above: NPH (normal pressure hydrocephalus) (HCC) (Primary Dx) Start: 08-31-2022 End: 08-31-2022 ambulatory Griselda Kuns Other [facility] Other Start: 08-31-2022 Office outpatient vi sit 25 minutes Griselda Kuns [facility] Start: 08-01-2022 End: 08-01-2022 ambulatory Griselda Kuns Other [facility] Other Start: 08-01-2022 Office outpatient vi sit 25 minutes Griselda Kuns [facility] Start: 07-17-2022 End: 07-17-2022 ambulatory DO Griselda Kuns Work Phone: [facility] Work Phone: Start: 07-17-2022 End: 07-17-2022 Patient encounter procedure DO Griselda Kuns Work Phone: [facility] [place] Work Phone: Start: 07-14-2022 End: 07-14-2022 Patient encounter procedure DO Griselda Kuns Work Phone: [facility]-CT Scan [place] Work Phone: Start: 06-28-2022 End: 06-28-2022 ambulatory Trish Blades Other [facility] Other Start: 06-28-2022 Office outpatient ne w 45 minutes Trish Blades [facility] Neurosurgery Start: 05-26-2022 End: 05-26-2022 ambulatory Griselda Kuns Other [facility] Other Start: 05-26-2022 Office outpatient vi sit 25 minutes Griselda Kuns [facility] Start: 05-17-2022 End: 05-17-2022 ambulatory DO Griselda Kuns Work Phone: [facility] Work Phone: Start: 05-17-2022 End: 05-17-2022 Discharged Recurring DO Griselda Kuns Work Phone: [facility]-Physical Therapy [address] Start: 04-27-2022 Registered Recurring DO Griselda Kuns Work Phone: [facility]-Physical Therapy [address] Start: 04-16-2022 End: 04-17-2022 Emergency department patient visit DO Griselda Kuns Work Phone: [facility]-Emergency Room Start: 04-10-2022 End: 04-10-2022 ambulatory Griselda Kuns Other [facility] Other Start: 04-10-2022 Telephone encounter Griselda Kuns [facility] Start: 04-06-2022 End: 04-06-2022 Emergency department patient visit DO Griselda Kuns Work Phone: [facility]-Emergency Room Start: 03-27-2022 Telephone encounter Asya Reynolds RN Hematology/Oncology Comment on above: Appointment Start: 03-22-2022 End: 03-22-2022 ambulatory Griselda Kuns Other [facility] Other Start: 03-22-2022 Telephone encounter Griselda Kuns [facility] Start: 03-16-2022 End: 03-16-2022 ambulatory Griselda Kuns Other [facility] Other Start: 03-16-2022 Office outpatient vi sit 25 minutes Griselda Kuns [facility] Start: 03-16-2022 Telephone encounter Self [facility] Comment on above: Triage (Internal Ref erral--old) Start: 03-09-2022 End: 03-09-2022 ambulatory Griselda Kuns Other [facility] Other Start: 03-09-2022 Telephone encounter Griselda Kuns [facility] Start: 03-07-2022 End: 03-07-2022 ambulatory Griselda Kuns Other [facility] Other Start: 03-07-2022 Telephone encounter Griselda Kuns [facility] Start: 03-03-2022 Telephone encounter Griselda Kuns [facility] Start: 03-03-2022 End: 03-03-2022 ambulatory DO Griselda Kuns Work Phone: [facility] Other Start: 03-03-2022 End: 03-03-2022 Discharged Recurring DO Griselda Kuns Work Phone: [facility]-Physical Therapy [facility] Start: 03-03-2022 Registered Recurring DO Griselda Kuns Work Phone: [facility]-Physical Therapy [address] Start: 02-07-2022 End: 02-07-2022 ambulatory Griselda Kuns Other [facility] Other Start: 02-07-2022 Telephone encounter Griselda Kuns [facility] [place] Start: 01-30-2022 End: 01-30-2022 ambulatory Griselda Kuns Other [facility] Other Start: 01-30-2022 Office outpatient vi sit 25 minutes Griselda Kuns [facility] [place] Start: 01-12-2022 End: 01-12-2022 ambulatory Griselda Kuns Other [facility] Other Start: 01-12-2022 Telephone encounter Grisedla Kuns [facility] [place] Start: 12-26-2021 End: 12-26-2021 ambulatory Griselda Kuns Other [facility] Other Start: 12-26-2021 Office outpatient vi sit 25 minutes Griselda Kuns [facility] [place] Start: 12-23-2021 End: 12-23-2021 ambulatory Griselda Kuns Other [facility] Other Start: 12-23-2021 Telephone encounter Griselda Kuns [facility] [place] Start: 12-05-2021 End: 12-05-2021 ambulatory Griselda Kuns Other [facility] Other Start: 12-05-2021 Office outpatient vi sit 25 minutes Griselda Kuns [facility] [place] Start: 12-05-2021 Telephone encounter Griselda Kuns [facility] [place] Start: 11-22-2021 End: 11-22-2021 ambulatory Griselda Kuns Other [facility] Other Start: 11-22-2021 Telephone encounter Griselda Kuns [facility] [place] Start: 11-21-2021 Office outpatient vi sit 15 minutes Griselda R Kuns Work Phone: [facility] Work Phone: Start: 11-09-2021 End: 11-09-2021 ambulatory Griselda Kuns Other [facility] Other Start: 11-09-2021 Telephone encounter Griselda Kuns [facility] Start: 11-08-2021 End: 11-08-2021 ambulatory Griselda Kuns Other [facility] Other Start: 11-08-2021 Office outpatient vi sit 25 minutes Griselda Kuns [facility] Start: 11-03-2021 Office consultation new/estab patient 60 min Griselda R Kuns Work Phone: [facility] Work Phone: Start: 11-01-2021 End: 11-01-2021 ambulatory Griselda Kuns Other [facility] Other Start: 11-01-2021 Office outpatient vi sit 25 minutes Griselda Kuns [facility] Start: 10-31-2021 End: 10-31-2021 ambulatory Sheng Schneider Other [facility] Other Start: 10-31-2021 Telephone encounter Sheng Clark [facility] Neurosurgery Start: 10-27-2021 End: 10-27-2021 ambulatory Memo Cole MD Work Phone: Hematology/Oncology Comment on above: 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); Lung nodules; Malignant neoplasm of head, face and neck (HCC) Start: 10-27-2021 End: 10-27-2021 Telemedicine consultation with patient Memo Cole MD Work Phone: [place] Start: 10-24-2021 End: 10-24-2021 ambulatory Sheng Schneider Other [facility] Other Start: 10-24-2021 Office outpatient ne w 30 minutes Sheng Schneider [facility] Neurosurgery Start: 10-13-2021 Telephone encounter Memo kapoor MD Work Phone: [facility] Comment on above: Referral Information (Neurosurgery) Start: 10-13-2021 End: 10-13-2021 ambulatory Memo Cole MD Work Phone: Hematology/Oncology Comment on above: Glioma of brain (HCC ) (Primary Dx); Lung nodules; 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) Start: 10-13-2021 End: 10-13-2021 Patient encounter procedure Memo Cole MD Work Phone: [place] Start: 10-06-2021 End: 10-06-2021 ambulatory Griselda Mendezs Other [facility] Other Start: 10-06-2021 Telephone encounter Asya Kumar RN Hematology/Oncology Comment on above: Results Start: 10-06-2021 End: 10-06-2021 Subsequent hospital visit by physician Arrival Time Radiology Work Phone: Radiology Pet CT Comment on above: Malignant neoplasm o f head, 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] Start: 09-29-2021 End: 09-29-2021 ambulatory Griselda Andreas Other [facility] Other Start: 09-29-2021 Telephone encounter Griselda Kuns [facility] Start: 09-27-2021 End: 09-27-2021 ambulatory Griselda Kuns Other [facility] Other Start: 09-27-2021 Telephone encounter Griselda Kuns [facility] Start: 09-19-2021 End: 09-19-2021 ambulatory Griselda Kuns Other [facility] Other Start: 09-19-2021 Office outpatient vi sit 25 minutes Griselda Kuns [facility] [place] Start: 09-12-2021 End: 09-12-2021 ambulatory Griselda Kuns Other [facility] Other Start: 09-12-2021 Telephone encounter Griselda Kuns [facility] [place] Start: 09-08-2021 End: 09-08-2021 ambulatory Griselda Kuns Other [facility] Other Start: 09-08-2021 Telephone encounter Griselda Kuns [facility] [place] Start: 06-30-2021 End: 06-30-2021 ambulatory Griselda Kuns Other [facility] Other Start: 06-30-2021 Office outpatient vi sit 15 minutes Griselda Kuns [facility] [place] Start: 06-30-2021 Telephone encounter Griselda Kuns [facility] [place] Start: 06-29-2021 End: 06-29-2021 ambulatory Griselda Kuns Other [facility] Other Start: 06-29-2021 Nursing evaluation o f patient and report Griselda Kuns [facility] [place] Start: 04-19-2021 End: 04-19-2021 ambulatory Griselda Kuns Other [facility] Other Start: 04-19-2021 Nursing evaluation o f patient and report Griselda Kuns [facility] [place] Start: 04-19-2021 Telephone encounter Griselda Kuns [facility] [place] Start: 04-14-2021 Office outpatient vi sit 15 minutes Griselda Kuns [facility] [place] Start: 10-01-2020 End: 10-01-2020 Patient encounter procedure Griselda Kuns Work Phone: -Electrodiagnostics Start: 09-20-2020 End: 09-20-2020 Patient encounter procedure Griseldakeith Hastings -Lab [facility] Start: 09-13-2020 End: 09-13-2020 Patient encounter procedure Griselda Andreas -XRay [facility] Procedures Date Procedure Procedure Detail Performing Clinician Start: 01-08-2025 End: 01-08-2025 CRYOTHERAPY SKIN LESION Karime Soni Work Phone: Start: 2024 Plain chest X-ray Griselda Andreas DO Work Phone: Start: 11-19-2024 Quick Strep (POC) Griselda Andreas DO Work Phone: Start: 11-19-2024 RSV (POC) Griselda Andreas DO Work Phone: Start: 11-05-2024 Esophagogastroduodenoscopy Griselda Andreas DO Work Phone: Start: 11-03-2024 Ct soft tissue neck w/contrast material Memo Cole MD Work Phone: Start: 11-03-2024 Ct thorax w/contrast material Memo kapoor MD Work Phone: Start: 11-03-2024 Blood count complete auto&auto difrntl wbc Elizabeth Hagan PA-C Work Phone: Start: 10-21-2024 Study Interpretation of outside study Camille Harris MD Work Phone: Start: 10-10-2024 X-ray of cervical spine Griselda Andreas DO Work Phone: Start: 10-06-2024 Computed tomography of abdomen and pelvis with contrast Griselda Andreas DO Work Phone: Start: 10-06-2024 CT of soft tissues of neck with contrast Griselda Andreas DO Work Phone: Start: 09-20-2024 Respiratory Panel (PCR) Griselda Andreas DO Work Phone: Start: 09-20-2024 Plain chest X-ray Griselda Andreas DO Work Phone: Start: 09-11-2024 Ankle brachial pressure index Griselda Hastings DO Work Phone: Start: 06-24-2024 X-ray of cervical spine Griselda Hastings DO Work Phone: Start: 04-10-2024 Basic metabolic panel calcium total Chicho Bryan MD Work Phone: Start: 04-10-2024 Radex spine cervical 2 or 3 views Aleyda Alvarez MD Work Phone: Start: 04-09-2024 PULSE [...] DO Griselda Hastings Work Phone: Start: 09-19-2023 Study Interpretation of outside study Ayah Gross MD Work Phone: Start: 09-05-2023 Ankle brachial pressure index DO Griselda cavanaugh Work Phone: Start: 05-07-2023 Lower limb angiography DO Griselda Hastings Work Phone: Start: 05-04-2023 CT angiography of head DO Griselda [employer] Work Phone: Start: 05-04-2023 CT angiography of neck vessels DO Griselda [employer] Work Phone: Start: 04-25-2023 Pulse volume recorder pneumoplethysmography DO Griselda [employer] Work Phone: Start: 02-26-2023 SARS Antigen (LFIA) DO Griseldakeith Hastings Work Phone: Start: 11-15-2022 MR lumbar spine wo con DO Griselda [employer] Work Phone: Start: 11-15-2022 XR pre/post mri [...] 04-06-2022 CT cervical spine without contrast DO Don Hastings Work Phone: Start: 10-13-2021 Adult depression screening [...] RN Start: 09-13-2020 Plain chest X-ray Griselda Hastings Excision of melanoma Griselda Hastings Work Phone: Plan of Treatment Date Care Activity Detail Author Start: 2037 RSV Vaccine (1 - 1-dose 75+ series) RSV Vaccine (1 - 1-dose 75+ series) [facility] Start: 04-10-2027 Diabetes Screening Diabetes Screening [facility] Start: 10-25-2026 Diabetes Screening Diabetes Screening [facility] Start: 02-12-2026 Screening for osteoporosis Bone Density Scan [facility] Start: 01-08-2026 End: 01-08-2026 Patient encounter procedure TRNET ZEE Start: 04-06-2025 End: 04-06-2025 Patient encounter procedure 04/06/2025 9:30 AM EDT Office Visit [facility] [address] [facility] [address] [place] [address] Camille Harris MD [address] [place] [address] [facility] Start: 02-16-2025 Influenza vaccination [facility] Start: 02-04-2025 End: 02-04-2025 Clinical Support [facility] Comment on above: Arrived Start: 01-08-2025 End: 01-08-2025 Patient encounter procedure [facility] Comment on above: Arrived Start: 01-01-2025 End: 01-01-2025 Patient encounter procedure 01/01/2025 10:30 AM EDT Office Visit [facility] [address] [place] [address] Karime Franco PA [address] [place] [phone] [facility] Start: 12-24-2024 End: 12-24-2024 Clinical Support [facility] Comment on above: Arrived Start: 11-12-2024 End: 11-12-2024 Clinical Support [facility] Comment on above: Arrived Start: 11-07-2024 End: 11-07-2024 Follow-up encounter Hematology/Oncolog y Comment on above: [address] and lab Start: 11-05-2024 [facility] Start: 11-03-2024 End: 02-02-2025 Comprehensive metabolic 2000 panel - Serum or Plasma COMPREHENSIVE METABOLIC PANEL Lab Routine 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) Expected: 11/03/2024 (Approximate), Expires: 02/02/2025 [facility] Work Phone: Comment on above: Expected: 11/03/2024 (Approximate), Expi res: 02/02/2025 Start: 11-03-2024 End: 11-03-2024 Patient encounter procedure 11/03/2024 9:00 AM EDT Appointment Radiology [facility] CT [address] [place] [address] [place] [address] Ct Chest and neck with contrast and lab Radiology Pet CT Comment on above: Ct Chest and neck with contrast and lab Start: 11-01-2024 End: 11-01-2024 CBC W Auto Differential panel - Blood COMPLETE BLOOD COUNT AND DIFFERENTIAL Lab Routine 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) Expected: 11/01/2024 (Approximate), Expires: 11/01/2024 [facility] Comment on above: Expected: 11/01/2024 (Approximate), Expi res: 11/01/2024 Start: 11-01-2024 End: 11-01-2024 Comprehensive metabolic 2000 panel - Serum or Plasma COMPREHENSIVE METABOLIC PANEL Lab Routine 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) Expected: 11/01/2024 (Approximate), Expires: 11/01/2024 [facility] Comment on above: Expected: 11/01/2024 (Approximate), Expi res: 11/01/2024 Start: 11-01-2024 End: 12-01-2024 CT Chest W contrast IV CT CHEST W IVCON Radiology Routine 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) Expected: 11/01/2024 (Approximate), Expires: 12/01/2024 [facility] Comment on above: Expected: 11/01/2024 (Approximate), Expi res: 12/01/2024 Start: 11-01-2024 End: 12-01-2024 CT Neck W contrast IV CT NECK SOFT TISSUE W IVCON Radiology Routine 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) Expected: 11/01/2024 (Approximate), Expires: 12/01/2024 [facility] Work Phone: Comment on above: Expected: 11/01/2024 (Approximate), Expi res: 12/01/2024 Start: 10-10-2024 X-ray of cervical spine XR cervical spine 2V [facility] Start: 10-10-2024 XR Cervical spine 2 Views [facility] Start: 10-06-2024 DIABETES SCREEN DIABETES SCREEN [facility] Start: 09-29-2024 End: 09-29-2024 Patient encounter procedure 09/29/2024 11:00 AM EDT Office Visit [facility] [address] [facility] [address] [place] [address] Camille Harris MD [address] [facility], [address] [facility] [place] [address] [facility] Start: 09-11-2024 End: 09-11-2024 Clinical Support 09/11/2024 10:40 AM EDT Clinical Support [facility] [address] [facility] [address] [place] [address] Elvi Cadena MD [address] [place], [place] [id number] [facility] Start: 09-11-2024 Ankle brachial pressure index US ankle/arm indices [facility] Start: 07-31-2024 End: 07-31-2024 Clinical Support [facility] Comment on above: Arrived Start: 07-02-2024 End: 07-02-2024 Clinical Support [facility] Comment on above: Arrived Start: 06-30-2024 End: 06-30-2025 XR Cervical spine 2 or 3 Views XR cervical spine 2-3 views Imaging Routine Status post cervical spinal fusion Expected: 06/30/2024, Expires: 06/30/2025 [facility] Service Area Work Phone: Comment on above: Expected: 06/30/2024, Expires: Start: 06-30-2024 End: 06-30-2024 Patient encounter procedure [facility] Start: 05-21-2024 End: 05-21-2024 Clinical Support 05/21/2024 2:00 PM EST Clinical Support [facility] [address] [facility] [address] [place] [address] Elvi Cadena MD [address] [place] [address] [place], [place] [id number] Arrived [facility] Comment on above: Arrived Start: 05-16-2024 End: 05-16-2024 Patient encounter procedure 05/16/2024 9:15 AM EST Office Visit [facility] [address] [facility] [address] [place] [address] Camille Harris MD [address] [facility], [address] [place] [address] [facility] Start: 05-02-2024 End: 05-02-[address] [facility] Start: 04-30-2024 End: 04-30-2025 XR Cervical spine 2 or 3 Views XR cervical spine 2-3 views Imaging Routine Cervical radiculopathy Status post cervical spinal fusion Expected: 04/30/2024, Expires: 04/30/2025 [facility] Service Area Work Phone: Comment on above: Expected: 04/30/2024, Expires: Start: 04-30-2024 End: 04-30-2024 Patient encounter procedure 04/30/2024 1:00 PM EST Office Visit [facility] [address] [facility] [address] [place] [phone] Solomon Narayanan PA-C [address] [place], [place] [phone] [facility] Start: 04-09-2024 End: 04-09-2024 Admission to same day surgery center 04/09/2024 7:45 AM EDT - 04/09/2024 12:[address] [facility] [place] [address] [place] [address] Camille Harris MD [address] [facility], [address] [place] [address] Fusion Spine Anterior Cervical and Discectomy C5-6, C6-7 [71621 (CPT )] [facility] [place] Comment on above: Fusion Spine Anterior Cervical and Disce ctomy C5-6, C6-7 [98171 (CPT )] Start: 04-09-2024 End: 04-09-2024 Arthrd ant interbody decompress cervical belw c2 Fusion Spine Anterior Cervical and Discectomy Cervical radiculopathy Senile osteoporosis 04/09/2024 7:45 AM EDT Virtual [facility] [place] Start: 04-09-2024 Subsequent hospital visit by physician 04/09/2024 7:45 AM EDT Hospital Encounter [facility] [place] [address] [place] [address] Camille Harris MD [address] [facility], [address] [place] [address] [facility] [place] Start: 03-15-2024 DTaP/Tdap/Td Vaccines (2 - Td or Tdap) DTaP/Tdap/Td Vaccines (2 - Td or Tdap) [facility] Start: 03-15-2024 Urine microalbumin profile DTaP,Tdap,Td Vaccine (2 - Td or Tdap) [facility] Start: 03-11-2024 End: 03-11-2024 Patient encounter procedure 03/11/2024 11:30 AM EDT Office Visit [facility] [address] [facility] [address] [place] [address] Solomon Narayanan PA-C [address] [place], [place] [phone] [facility] Start: 03-03-2024 Influenza vaccination Influenza Vaccine (#1) [facility] Comment on above: Postponed from 02/16/2023 (Patient Refus ed) Start: 02-27-2024 End: 02-27-2024 Admission to same day surgery center [facility] [place] Comment on above: Anterior Cervical Discectomy and Fusion C5-6, C6-7 [09035 (CPT )] Start: 02-27-2024 End: 02-27-2024 Arthrd ant interbody decompress cervical belw c2 [facility] [place] Start: 02-27-2024 Subsequent hospital visit by physician [facility] [place] Start: 02-17-2024 COVID-19 Vaccine ( season) COVID-19 Vaccine ( season) [facility] Start: 02-17-2024 Covid-19 Vaccine ( season) Covid-19 Vaccine ( season) [facility] Start: 02-17-2024 Covid-19 Vaccine ( season) Covid-19 Vaccine () [facility] Start: 02-17-2024 Influenza vaccination [facility] Start: 02-15-2024 End: 02-15-2024 Patient encounter procedure 02/15/2024 9:00 AM EDT Office Visit [address] [address] Vincenzo Sanchez MD [address] [place] [address] [address], [facility] [address] [place], [place] [phone] [facility] Start: 02-13-2024 End: 02-13-2024 Patient encounter procedure 02/13/2024 11:00 AM EDT Appointment [facility] [address] [place] [address] [facility] Start: 02-03-2024 End: 01-02-2025 Nicotine and Metabolites,S Nicotine and Metabolites,S Lab Routine Cervical radiculopathy Senile osteoporosis Expected: 02/03/2024 (Approximate), Expires: 01/02/2025 [facility] Work Phone: Comment on above: Expected: 02/03/2024 (Approximate), Expi res: 01/02/2025 Start: 01-03-2024 End: 01-02-2025 DXA Skeletal system.axial Views for bone density XR DEXA bone density axial skeleton w VFA Imaging Routine Senile osteoporosis Expected: 01/03/2024, Expires: 01/02/2025 [facility] Service Area Work Phone: Comment on above: Expected: 01/03/2024, Expires: Start: 01-03-2024 End: 01-02-2025 XR Cervical spine 6 Views XR cervical spine complete 6+ views Imaging Routine Cervical radiculopathy Expected: 01/03/2024, Expires: 01/02/2025 [facility] Work Phone: Comment on above: Expected: 01/03/2024, Expires: Start: 01-03-2024 End: 01-03-2024 Patient encounter procedure 01/03/2024 1:30 PM EDT Office Visit [facility] [address] [facility] [address] [place] [phone] Camille Harris MD [address] [facility], [facility] [address] [place], [place] [phone] [facility] Start: 12-13-2023 End: 12-12-2024 MR Brain WO and W contrast IV MR brain w and wo IV contrast Imaging Routine Pontine glioma (Multi) Expected: 12/13/2023 (Approximate), Expires: 12/12/2024 [facility] Service Area Work Phone: Comment on above: Expected: 12/13/2023 (Approximate), Expi res: 12/12/2024 Start: 12-13-2023 End: 12-13-[address] [facility] Start: 09-28-2023 End: 09-28-2023 Patient encounter procedure 09/28/2023 10:15 AM EDT Office Visit [facility] [address] [place] [address] [place] [address] Department [place] [address] [facility] Start: 09-05-2023 Ankle brachial pressure index [facility] Start: 08-30-2023 End: 08-30-2023 Patient encounter procedure 08/30/2023 9:40 AM EDT Office Visit [facility] [address] [place] [address] Nikole Mota, ANIMAL KILLER [address] [place] [address], [place] [address] [facility] Start: 07-26-2023 End: 07-26-2023 Patient encounter procedure 07/26/2023 1:30 PM EST Procedure Visit [facility]O [address] [place] [address], [place] [address] Nikole Mota, ANIMAL KILLER [address] [place] [address], [place] [address] [facility] NE[facility]O [address] Start: 07-19-2023 End: 07-19-2023 Clinical Support 07/19/2023 1:30 PM EST Clinical Support [facility] [address] [place] [address] Nikole Mota, ANIMAL KILLER [address] [place] [address], [place] [address] Cervical dystonia [facility] Comment on above: Cervical dystonia Start: 06-18-2023 Behavioral Health Screening Behavioral Health Screening [facility] Start: 05-07-2023 Pulse volume recorder pneumoplethysmography US arterial pvr rest [facility] Start: 05-07-2023 [facility] Start: 05-07-2023 [facility] Start: 04-25-2023 Pulse volume recorder pneumoplethysmography US arterial pvr rest [facility] Start: 02-16-2023 COVID-19 Vaccine ( season) COVID-19 Vaccine ( season) [facility] Start: 02-16-2023 Influenza vaccination INFLUENZA (Season Ended) [facility] Start: 2022 RSV High Risk: (Elderly (60+) or Population) (1 - Risk 60-74 years 1-dose series) RSV High Risk: (Elderly (60+) or Population) (1 - Risk 60-74 years 1-dose series) [facility] Start: 2022 RSV patients and/or patients aged 60+ years (1 - 1-dose 60+ series) RSV patients and/or patients aged 60+ years (1 - 1-dose 60+ series) [facility] Start: 2022 RSV Vaccine (1 - 1-dose 60+ series) RSV Vaccine (1 - 1-dose 60+ series) [facility] Start: 10-30-2022 End: 10-30-2022 CBC W Auto Differential panel - Blood CBC + DIFF Lab Routine 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) Lung nodules Malignant neoplasm of head, face and neck (HCC) Expected: 10/30/2022 (Approximate), Expires: 10/30/2022 [facility] Work Phone: Comment on above: Expected: 10/30/2022 (Approximate), Expi res: 10/30/2022 Start: 10-30-2022 End: 10-30-2022 Comprehensive metabolic 2000 panel - Serum or Plasma COMP METABOLIC PANEL Lab Routine 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) Lung nodules Malignant neoplasm of head, face and neck (HCC) Expected: 10/30/2022 (Approximate), Expires: 10/30/2022 [facility] Work Phone: Comment on above: Expected: 10/30/2022 (Approximate), Expi res: 10/30/2022 Start: 10-30-2022 End: 11-29-2022 Ct soft tissue neck w/contrast material CT NECK SOFT TISSUE W IVCON Radiology Routine Malignant neoplasm of head, face and neck (HCC) Expected: 10/30/2022 (Approximate), Expires: 11/29/2022 [facility] Work Phone: Comment on above: Expected: 10/30/2022 (Approximate), Expi res: 11/29/2022 Start: 10-30-2022 End: 11-29-2022 Ct thorax w/contrast material CT CHEST W IVCON Radiology Routine Lung nodules Expected: 10/30/2022 (Approximate), Expires: 11/29/2022 [facility] Work Phone: Comment on above: Expected: 10/30/2022 (Approximate), Expi res: 11/29/2022 Start: 10-13-2022 Adult depression screening assessment DEPRESSION SCREENING [facility] Start: 07-17-2022 Aerobic Culture Aerobic Culture [facility] Start: 07-17-2022 Anaerobic Culture Anaerobic Culture [facility] Start: 07-17-2022 Microscopic observation [Identifier] in Unspecified specimen by Gram stain [facility] Start: 07-17-2022 Cerebrospinal fluid culture [facility] Start: 07-17-2022 End: 07-17-2022 [facility] Start: 07-17-2022 [facility] Start: 06-18-2022 DEPRESSION ASSESSMENT DEPRESSION ASSESSMENT [facility] Start: 04-16-2022 Plain chest X-ray XR ribs LT min 3V w CXR1V* [facility] Start: 04-16-2022 XR Unspecified body region Views [facility] Start: 02-16-2022 Influ[facility] [...] DISCUSSION [facility] Start: 2017 Prostate specific antigen measurement Prostate Cancer Screening Discussion [facility] Start: 2012 Pneumococcal Vaccine: 50+ (1 of 1 - PCV) Pneumococcal Vaccine: 50+ (1 of 1 - PCV) [facility] Start: 2012 Screening for malignant neoplasm of lung Lung Cancer Screening [facility] Start: 2012 SHINGRIX VACCINE (1 of 2) SHINGRIX VACCINE (1 of 2) [facility] Start: 2012 Zoster Vaccines (1 of 2) Zoster Vaccines (1 of 2) [facility] Start: 11-25-2007 COLOGUARD (FIT-DNA) COLOGUARD (FIT-DNA) [facility] Start: 11-25-2007 Colonoscopy COLONOSCOPY [facility] Start: 11-25-2007 COLORECTAL CANCER SCREENING COLORECTAL CANCER SCREENING [facility] Start: 11-25-[address] COLONOGRAPHY [facility] Start: 11-25-2007 FECAL OCCULT BLOOD FECAL OCCULT BLOOD [facility] Start: 11-25-2007 Prostate specific antigen measurement Prostate Cancer Screening Discussion [facility] Start: 11-25-2007 Screening for malignant neoplasm of colon [facility] Start: 11-25-2007 SIGMOIDOSCOPY SIGMOIDOSCOPY [facility] Start: 1997 Lipid panel Lipid Screening [facility] Start: 1997 LIPID SCREEN LIPID SCREEN [facility] Start: 1981 Hepatitis A Vaccines (1 of 2 - Risk 2-dose series) Hepatitis A Vaccines (1 of 2 - Risk 2-dose series) [facility] Start: 1981 Pneumococcal vaccination Pneumococcal Vaccine (1 of 2 - PCV) [facility] Start: 1981 Urine microalbumin profile DTAP,TDAP,TD (1 - Tdap) [facility] Start: 1980 Anxiety Screening Anxiety Screening [facility] Start: 1980 Depression Screening Depression Screening [facility] Start: 1980 Diabetes mellitus screening Diabetes Screening [facility] Start: 1980 HEPATITIS C SCREENING HEPATITIS C SCREENING [facility] Start: 1980 Hepatitis C screening Hepatitis C Screening [facility] Start: 1980 HIV SCREENING HIV SCREENING [facility] Start: 1980 HIV screening HIV Screening [facility] Start: 1968 Pneumococcal Vaccine: Pediatrics (0 to 5 Years) and At-Risk Patients (6 to 64 Years) (1 of 2 - PCV) Pneumococcal Vaccine: Pediatrics (0 to 5 Years) and At-Risk Patients (6 to 64 Years) (1 of 2 - PCV) [facility] Start: 11-25-1963 MMR Vaccines (1 of 1 - Standard series) MMR Vaccines (1 of 1 - Standard series) [facility] Start: 1962 Annual wellness visit Welcome to Medicare Visit [facility] Start: 1962 HIV screening HIV Screening [facility] Start: 1962 Lipid panel Lipid Panel [facility] Start: 1962 Screening for malignant neoplasm of colon [facility] Start: 1962 Screening for osteoporosis Bone Density Scan [facility] Start: 1962 Yearly Adult Physical Yearly Adult Physical [facility] Ankle brachial pressure index [facility] Bacteria identified in Cerebral spinal fluid by Culture CSF CULT + STAIN Microbiology Routine NPH (normal pressure hydrocephalus) ([facility]) Ordered: 09/13/2022 [facility] Work Phone: Comment on above: Ordered: 09/13/2022 Bacteria identified in Unspecified specimen by Aerobe culture [facility] Bacteria identified in Unspecified specimen by Anaerobe culture [facility] End: 04-12-2024 Basic metabolic 2000 panel - Serum or Plasma Basic metabolic panel Lab Routine Morning draw (Lab) for 3 Occurrences starting 04/10/2024 until 04/12/2024, 1 completed [facility] Work Phone: Comment on above: Morning draw (Lab) for 3 Occurrences sta rting 04/10/2024 until 04/12/2024, 1 completed End: 04-12-2024 CBC panel - Blood by Automated count CBC Lab Routine Morning draw (Lab) for 3 Occurrences starting 04/10/2024 until 04/12/2024, 1 completed [facility] Work Phone: Comment on above: Morning draw (Lab) for 3 Occurrences sta rting 04/10/2024 until 04/12/2024, 1 completed Cell count panel - C erebral spinal fluid CSF CELL COUNT Lab Routine NPH (normal pressure hydrocephalus) ([facility]) Ordered: 09/13/2022 [facility] Work Phone: Comment on above: Ordered: 09/13/2022 Cell count, cerebros roberto fluid [facility] Comprehensive metabo lic 2000 panel - Serum or Plasma [facility] End: 04-09-2024 Continuous Pulse oximetry, In Phase 1 Continuous Pulse oximetry, In Phase 1 Respiratory Care Routine Continuous until discontinued starting 04/09/2024 [facility] Service Area Work Phone: Comment on above: Continuous until discontinued starting 1 Enolase.neuron speci fic [Mass/volume] in Serum or Plasma by Immunoassay [facility] Fungus identified in Unspecified specimen by Culture [facility] Glucose [Mass/volume ] in Cerebral spinal fluid [facility] Glucose [Mass/volume ] in Serum or Plasma POCT Glucose Point of Care Testing - Docked Device Routine As needed (Lab) until discontinued starting 04/09/2024 [facility] Work Phone: Comment on above: As needed (Lab) until discontinued start ing 04/09/2024 End: 04-09-2024 Incentive spirometry Instruct Incentive spirometry Instruct Respiratory Care Routine Once for 1 Occurrences starting 04/09/2024 until 04/09/2024 [facility] Work Phone: Comment on above: Once for 1 Occurrences starting 04/09/20 until 04/09/2024 IR LP FOR DRAINAGE (PRESSURE) IR LP FOR DRAINAGE (PRESSURE) Radiology Routine NPH (normal pressure hydrocephalus) (HCC) Ordered: 09/13/2022 [facility] Work Phone: Comment on above: Ordered: 09/13/2022 Meningitis+Encephali tis pathogens DNA and RNA panel - Cerebral spinal fluid by JER with non-probe detection [facility] End: 10-20-2023 Mri brain brain stem w/o w/contrast material MRI BRAIN WO/W IVCON Radiology Routine 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HCC) 1 Occurrences starting 09/20/2022 until 10/20/2023 [facility] Work Phone: Comment on above: 1 Occurrences starting 09/20/2022 until 10/20/2023 Patient Education [facility] Work Phone: Patient referral [facility] Work Phone: Protein [Mass/volume ] in Cerebral spinal fluid [facility] End: 04-09-2024 Urethral Catheter Removal Urethral Catheter Removal Procedures Routine Once for 1 Occurrences starting 04/09/2024 until 04/09/2024 [facility] Work Phone: Comment on above: Once for 1 Occurrences starting 04/09/20 until 04/09/2024 Virus identified in Unspecified specimen by Culture [facility] End: 02-13-2024 XR Cervical spine 6 Views [facility] Service A [facility] Work Phone: Comment on above: Once for 1 Occurrences starting 02/13/20 24 until 02/13/2024 XR Chest 2 Views XR chest 2 view s Imaging Routine Cervical radiculopathy Senile osteoporosis 02/13/2024 11:10 AM EDT [facility] Work Phone: XR Chest 2 Views [facility] Immunizations Immunization Date Immunization Notes Care Provider Fa cility 01-21-2021 COVID-19 Vaccine Pfi zer - Documentation Purposes Only Griselda Kuns Other [facility] 12-30-2020 COVID-19 Vaccine Pfi zer - Documentation Purposes Only Griselda Kuns Other [facility] 01-24-2016 KENALOG - 10 mg Griselda Kuns Other [facility] [employer] Other 01-27-2015 Toradol per 15 mg Griselda Kuns Other [facility] [employer] Other 03-15-2014 tetanus toxoid, redu julienne diphtheria toxoid, and acellular pertussis vaccine, adsorbed Griselda Kuns Other [facility] [employer] Other Payers Date Payer Category Payer Self-pay [id number] 2024 Medicare [id number] 2024 Medicare [id number] 2023 Managed Care (Private) [facility] [id number]. [id number] 2022 Private Health Insurance [id number] 2.16.840.1.572179.19 2021 Private Health Insurance [facility] [employer] [id number] 2021-Present [phone] [address] [place] [address] PPO [id number]. [id number] 2019 Medicaid [employer] [id number] 2019-Present [phone] [address] [place] [address] Medicaid [id number]. [id number] 2019 Medicaid [id number]. 1.13.159.2. [id number] 2019 Private Health Insurance 1.2 .840.605528.1.13.159.2. 7.3.275121.315 2019 Unknown [id number] 2019 Unknown 2019 Unknown [id number] 2.16.840.1.209491.19 1962 Unknown [id number] 2.16.840.1.998507.3.579.2. 693 1962 Unknown [id number] 2.16.840.1.189177.3.579.2. 182 1962 Unknown [id number] 2.16.840.1.040615.3.579.2. 182 1962 Unknown [id number] 2.16.840.1.762254.3.579.2. 196 1962 Unknown [id number] 2.16.840.1.401937.3.579.2. 196 1962 Unknown [id number] 2.16.840.1.178924.3.579.2. 196 1962 Unknown [id number] 2.16.840.1.515106.3.579.2. 196 1962 Unknown [id number] 2.16.840.1.400774.3.579.2. 196 1962 Unknown [id number] 2.16.840.1.249226.3.579.2. 196 1962 Unknown [id number] 2.16.840.1.460791.3.579.2. 196 1962 Unknown [id number] 2.16.840.1.011197.3.579.2. 1244 1962 Unknown [id number] 2.16.840.1.617077.3.579.2. 1244 1962 Unknown [id number] 2.16.840.1.136667.3.579.2. 1244 1962 Unknown [id number] 2.16.840.1.144336.3.579.2. 1244 1962 Unknown [id number] 2.16.840.1.948244.3.579.2. 1244 1962 Unknown [id number] 2.16.840.1.336465.3.579.2. 1244 1962 Unknown [id number] 2.16.840.1.618914.3.579.2. 1245 1962 Unknown [id number] 2.16.840.1.770565.3.579.2. 1244 1962 Unknown [id number] 2.16.840.1.235662.3.579.2. 1244 1962 Unknown [id number] 2.16.840.1.533747.3.579.2. 1244 1962 Unknown [id number] 2.16.840.1.279195.3.579.2. 1244 1962 Unknown [id number] 2.16.840.1.829482.3.579.2. 1245 1962 Unknown [id number] 2.16.840.1.496285.3.579.2. 1245 1962 Unknown [id number] 2.16.840.1.974165.3.579.2. 1245 1962 Unknown [id number] 2.16.840.1.142230.3.579.2. 1243 1962 Unknown [id number] 2.16.840.1.461347.3.579.2. 1243 1962 Unknown [id number] 2.16.840.1.831400.3.579.2. 1243 1962 Unknown [id number] 2.16.840.1.869620.3.579.2. 1258 1962 Unknown [id number] 2.16.840.1.358267.3.579.2. 1258 1962 Unknown [id number] 2.16.840.1.546506.3.579.2. 1258 1962 Unknown [id number] 2.16.840.1.959390.3.579.2. 1258 1962 Unknown [id number] 2.16.840.1.252484.3.579.2. 1258 1962 Unknown [id number] 2.16.840.1.968091.3.579.2. 1259 1962 Unknown [id number] 2.16.840.1.105737.3.579.2. 1259 1962 Unknown [id number] 2.16.840.1.227931.3.579.2. 1259 1962 Unknown [id number] 2.16.840.1.337325.3.579.2. 1259 Private Health Insurance [id number] Unknown [id number] Unknown [id number] 2.16.840.1.634065.3.579.2. 531 Unknown [id number] 2.16.840.1.364227.3.579.2. 531 Unknown [id number] 2.16.840.1.091289.3.579.2. 531 Unknown [id number] 2.16.840.1.599729.3.579.2. 531 Unknown [id number] 2.16.840.1.296345.3.579.2. 531 Unknown [id number] 2.16.840.1.435104.3.579.2. 531 Unknown [id number] 2.16.840.1.261144.3.579.2. 531 Unknown [id number] 2.16.840.1.732401.3.579.2. 531 Social History Date Type Detail Facility Start: 04-29-2018 End: 11-05-2024 Tobacco smoking status WYIS Smoker (finding) [facility] Start: 1960 Sex Assigned At Male F [facility] Start: 10-16-2019 Tobacco smoking status WYIS Ex-smoker [facility] Start: 06-18-1973 History of tobacco use Cigarette Smoker [facility] Start: 10-16-2019 End: 09-24-2024 Cigarettes smoked current (pack per day) - Reported 1.5 [facility] Start: 10-16-2019 End: 01-02-2024 Tobacco use and exposure Smokeless tobacco non-user [facility] Start: 10-14-2020 End: 01-08-2025 Alcohol intake Ex-drinker (finding) [facility] Start: 01-20-2019 History SDOH Alcohol Comment quit 2002 [facility] Start: 10-16-2019 Tobacco Comment quit smoking 01/2019 [facility] Start: 1960 Sex Assigned At Not on file C [facility] Start: 10-03-2021 End: 10-13-2024 Exposure to SARS-CoV-2 (event) Not sure [facility] Start: 07-03-2023 End: 09-24-2024 Sex Assigned At [facility] Start: 03-10-2022 End: 03-20-2022 Exposure to SARS-CoV-2 (event) Unable to assess [facility] Work Phone: Start: 12-28-2022 End: 01-02-2024 Daily Smoker [facility] Start: 03-13-2023 Tobacco Comment 6-10 cigarettes/day [facility] Start: 09-20-2022 Gender identity Identifies as male gender (finding) [facility] Start: 09-20-2022 Sexual orientation Heterosexual (fin ding) [facility] Tobacco smoking status NHIS Tobacco smoking consumption unknown [facility] Work Phone: Start: 10-05-2023 End: 01-03-2024 Alcoholic beverage intake Lifetime non-drinker (finding) [facility] Work Phone: Adult Depression Screening Assessment 2 [facility] How often to you hav e a drink containing alcohol? Never [facility] In the past 12 months, was there a time when you were not able to pay the mortgage or rent on time? No [facility] Work Phone: Start: 04-28-2024 End: 11-25-2024 Sex Male (finding) [facility] NEGATED: Highlighted rowStart: NINF History of tobacco use Passive smoker [facility] Work Phone: Medical Equipment Procedure Code Equipment Code Equipment Origin al Text Equipment Identifier Dates Angiogram, lower extremity, left Multiple peripheral artery stent, bare-metal [id number] Start: 05-07-2023 Allograft, Triad Lordotic 6 X 11 X 14 - [id number] - [id number] Start: 04-09-2024 Allograft, Triad Lordotic 6 X 11 X 14 - [id number] - [id number] Start: 04-09-2024 Plate, Acp, 1.6v , 2 Level, 34mm - [id number] Start: 04-09-2024 Screw, Acp, Self Drill, 3.5 X 17mm, Variable - [id number] Start: 04-09-2024 3.5 X 19mm Screw [id number] Start: 04-09-2024 Comment on above: Description: per juan carlos l only jdr 04/10 Goals Date Patient Goal Desired Activity /State Personal health goal Functional Status Date Assessment Result Facility 10-13-2024 Patient Health [facility] ionnaire 2 item (PHQ-2) [Reported] [facility] Work Phone: 10-13-2024 PHQ-9 quick depressi on assessment panel [Reported.PHQ] [facility] Work Phone: Clinical Notes 11-03-2008 to 01-08-2025 QUENTIN Vail - 01/08/2025 10:20 AM EDTBjevon Cadena MD - 12/24/2024 2:00 PM EDT Note Date & Type Note Facility 01-08-2025 History of Presen t illness Narrative Skin Check Location: Patient requests a skin examination from the waist up Dermatologic history: history of Actinic Keratosis, history of Squamous Cell Carcinoma Last visit: 1 year ago Established patient All pertinent medical history, medications, and allergies were reviewed. General Exam: alert, oriented to person, place, and time, normal affect, well appearing Unaccompanied A complete skin exam was offered, pt declined. Areas not examined despite medical recommendation: From the waist down Scalp, Examined , exam limited by hair Head, Face Examined Neck Examined Chest Examined Back Examined Abdomen Examined Right arm Examined Left arm Examined Hands Examined Digits,nails: Examined Lymphatics: Not examined Skin Exam 1. SEBORRHEIC KERATOSIS (2) Arms, Trunk Stuck on verrucous, walker-brown papules and plaques. Patient was counseled regarding these benign growths. Removal is normally not necessary, but they may be removed if they are symptomatic or for cosmetic reasons. 2. INFLAMED SEBORRHEIC KERATOSIS Left Wrist - Anterior Colt and brown stuck on verrucous scaly papule with surrounding erythema The patient was informed that symptomatic seborrheic keratoses are benign growths that become inflamed, itchy, tender, traumatized, caught on clothing, or bleed. Symptomatic lesions can be treated with cryotherapy or curretage. Thicker lesions treated with cryotherapy may require more than one treatment. The patient was instructed to notify the office if abnormal redness or tenderness develops at the treatment site. Cryotherapy today, see procedure note. Diagnosis: Inflamed seborrheic keratosis Indication: Inflamed Consent: Verbal consent was obtained and risks were discussed, including, but not limited to risks of scarring, darker or investigator cash shortage pigmentary changes, recurrence, incomplete removal and infection. Method: Liquid nitrogen was used to treat the lesion(s) with two 5-10 second freeze-thaw cycles Number of lesions treated: 1 Post-procedure instructions: Instructions were given orally and in writing. The office will be contacted if the lesion fails to resolve despite treatment, or if a side effect develops such as abnormal crusting, scabbing, redness or tenderness Cryotherapy, skin lesion - Left Wrist - Anterior 3. ACTINIC KERATOSIS (9) Left Frontal Scalp, Mid Forehead, Mid Frontal Scalp, Mid Parietal Scalp (5), Right Forehead Erythematous scaly papules Patient was counseled regarding these sun-induced growths that can develop into squamous cell carcinoma if left untreated. Discussed treatment with cryotherapy. It was emphasized that any treated lesions that fail to resolve should be re-evaluated. Cryotherapy performed today; see procedure note Diagnosis: Actinic keratosis Indication: Precancerous Location: see skin exam Consent: Verbal consent was obtained and risks were discussed, including, but not limited to risks of scarring, darker or investigator cash shortage pigmentary changes, recurrence, incomplete removal and infection. Method: Liquid nitrogen was used to treat the lesion(s) with two 5-10 second freeze-thaw cycles. Eyes were shielded using cotton pad during procedure Number of lesions treated: 9 Post-procedure instructions: Instructions were given orally and in writing. The office will be contacted if the lesion fails to resolve despite treatment, or if a side effect develops such as abnormal crusting, scabbing, redness or tenderness Cryotherapy, skin lesion - Left Frontal Scalp, Mid Forehead, Mid Frontal Scalp, Mid Parietal Scalp (5), Right Forehead 4. CAPILLARY ANGIOMA Trunk Scattered crowder-red papule(s). The patient was informed that angiomas are benign growths on the the skin. No treatment is necessary. 5. MELANOCYTIC NEVUS OF TRUNK Trunk Scattered benign appearing, regular brown to light brown melanocytic papules and macules with similar morphology Counseled regarding these benign growths. Rarely, a nevus can develop into malignant melanoma, so any changing nevi should be promptly re-evaluated. 6. HISTORY OF SCC (SQUAMOUS CELL CARCINOMA) OF SKIN Mid Parietal Scalp No evidence of recurrence at SCC scar. The patient was counseled that scars from excisional sites of nonmelanoma skin cancers should be monitored closely for recurrence. The patient was instructed to contact the office for any new, changing, or symptomatic moles. The patient was also instructed to contact the office for any new lesions that develop within or around the previous surgery scar. Next Visit: 1 year, skin check documented in this encounter [facility] 12-24-2024 History of Presen t illness Narrative Images from the original note were not included. Subjective Jovani Melendez is a 64 y.o. male who presents for Neck pain History of Present Illness The patient presents for evaluation of neck pain. He reports persistent neck pain, which he describes as severe. The pain is primarily located in his shoulder, with some discomfort extending to his neck. He has not undergone ablation therapy due to a previous surgical intervention. Additionally, he experiences tightness on the right side and soreness in the anterior bursa. Swimming recently resulted in a sunburn on his lower right arm. 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 He has discontinued the use of Lyrica and gabapentin due to unpleasant side effects and is interested in resuming Zanaflex treatment. Since the last visit, he reports his pain level was down to a one for about 4 to 5 weeks but has increased to a five to six over the past 6 weeks. He did receive greater than 50% reduction in his pain with the last set of injections. He has stopped taking his blood pressure medication for a couple of weeks. He has lost approximately 30 pounds unintentionally. He had arthroscopy and RSV, and six precancerous polyps were removed. INTERVAL: Since last visit, he reports his pain level was down to a one for about 4 to 5 weeks but has increased to a five to six over the past 6 weeks. He did receive greater than 50% reduction in his pain with the last set of injections. PAST SURGICAL HISTORY: Arthroscopy, removal of six precancerous polyps. MEDICATIONS CURRENT MEDS: Zanaflex PREVIOUS MEDS: Lyrica Reason for Discontinuation: Made the patient feel unwell Gabapentin Reason for Discontinuation: Made the patient feel unwell Blood Pressure Medicine Reason for Discontinuation: Patient stopped taking it Review of Systems Objective Blood pressure 125/87, pulse 85, weight 165 lb. Physical Exam Vital Signs: Blood pressure 125/80, Pulse 85, Weight 165 lbs Integumentary: Seborrhea noted, noncancerous Results Brachial Plexus injection After explaining the risks, [...] images were placed in the media folder. The Procedure was done by Dr. Elvi Cadena. Left Anterior Shoulder After explaining the risks, complications, and benefits of the procedure, the patient was seated in the chair. Allergies were reviewed, the consent was signed. Right anterior shoulder injection, injecting into the right subcoracoid bursa. This area was marked for the injection site, using sterile technique, and surface anesthetic, a 30 gauge 1/2 spinal needle was inserted. With a slightly superior angle pointing towards the subacromial space, we aspirated to make sure we were not in a vessel. The patient received 0.5 cc Bupivacaine 0.5% and0.5 cc Dexamethasone 4 mg. The needle was removed, and the patient tolerated the procedure well without any complications. A band-Aid was placed on the injection site. Ultrasound images were placed in the media folder in the patients chart. The Procedure was done by Dr. Elvi Cadena. This note was scribed by Jocelyn Arango(R) acting under the direction of Elvi Cadena MD. The content has been reviewed and confirmed for accuracy by Elvi Cadena MD Assessment & Plan 1. Neck pain. Since his last visit, he reports that his pain level was at a 6 today, which had decreased to a 1 for about 4 to 5 weeks but has since increased to a 5 or 6 over the past 6 weeks. He experienced more than a 50% reduction in pain with the last set of injections. A trial of a peripheral nerve stimulator is recommended, as it may help with the pain down his arm. If the peripheral nerve stimulator is not effective, a spinal cord stimulator may be considered. He will follow up with pain management next week for the trial. 2. Blood pressure management. His blood pressure is currently well-controlled at 125/80 mmHg. He has stopped taking his blood pressure medication for a couple of weeks. 3. Weight loss. He has lost approximately 30 pounds unintentionally. He had arthroscopy and RSV. He had 6 precancerous polyps removed. Follow-up The patient will follow up in 6 weeks. PROCEDURE Steroid injection was administered today. documented in this encounter [facility] 11-19-2024 Evaluation note Authored November 19, 2024 2:36p m Sooner if needed, the ER if concerns,The above note written by Shilpi Lantigua LPN acting as human recorder, note dictated by Dr. Griselda Hastings [facility] Work Phone: 1(278) 866-831405-28-2025 History of Present illness Narrative* Elvi Cadena MD - 11/12/2024 1:40 PM EDT Images from the original note were not included. CHIEF COMPLAINT REASON FOR VISIT: Patient is here today for headaches, neck pain and left shoulder pain. HPI: Jovani Melendez is a 63 y.o. male who presents for injections. He states pain in neck is 7/10. Pain level in the left shoulder is a 6/10. He states he is just having a lot of nerve pain. No headaches. He states that these injections do give him some relief by more than 50 percent for at least 3 weeks.He does get epidural injections that do really help quite a bit. He states they are talking about aspinal stimulator. Denies any other concerns. CURRENT MEDICATIONS: ALLERGIES/DISCONTINUE MEDICATIONS Current Outpatient Medications [...] ezetimibe (ZETIA) 10 mg, Oral, Daily HYDROcodone-acetaminophen ([place]) 5-325 MG tablet take 1 tablet orally [...] 24 hours, Apply 21 mg daily x 6weeks then apply 14 mg patch daily x [...] Father Cancer Father Depression: Not at risk (11/05/2024) Received from [facility] PHQ-2 PHQ-2 score: 2 REVIEW OF SYMPTOMS: Review of Systems Constitutional: Negative for chills, diaphoresis, fatigue and fever. HENT: Negative for ear pain, tinnitus and trouble swallowing. Eyes: Negative for photophobia and visual disturbance. Respiratory: Negative for cough and shortness of breath. Cardiovascular: Negative for palpitations and leg swelling. Gastrointestinal: Negative for abdominal pain and nausea. Genitourinary: Negative for difficulty urinating and urgency. Musculoskeletal: Positive for neck pain and neck stiffness. Negative for arthralgias, back pain andmyalgias. Neurological: Negative for tremors, weakness, light-headedness and numbness. Psychiatric/Behavioral: Negative for agitation, confusion and suicidal ideas. OBJECTIVE: 09/11/2024 10:46 AM 07/31/2024 1:26 PM 07/02/2024 2:18 PM Vitals BMI 27.06 kg/m2 27.37 kg/m2 28.28 kg/m2 BSA (m2) 1.97 m2 1.98 m2 2.01 m2 Systolic 135 131 143 Diastolic 68 89 77 Heart Rate 61 81 86 Weight (lb) 178 180 186 EXAM: Neurological Exam Mental Status Awake, alert and oriented to person, place and time. Oriented to person, place and time. Recent andremote memory are intact. Speech is normal. Language is fluent with no aphasia. Attention and concentration are normal. Cranial Nerves CN II: Visual acuity is normal. Visual mcgrath full to confrontation. CN III, IV, : Extraocular movements intact bilaterally. Normal lids and orbits bilaterally. Pupils equal round and reactive to light bilaterally. CN V: Facial sensation is normal. CN VII: Full and symmetric facial movement. CN VIII: Hearing is normal. CN XII: Tongue midline without atrophy or fasciculations. Motor Normal muscle bulk throughout. Normal muscle tone. Right Left Wrist flexion 5 5 Wrist extension 5 5 Right Left Deltoid 5 5 Biceps 5 5 Triceps 5 5 Wrist flexor 5 5 Wrist extensor 5 5 Glutei 5 5 Iliopsoas 5 5 Quadriceps 5 5 Gastrocnemius 5 5 Anterior tibialis 5 5 Posterior tibialis 5 5 Sensory Light touch is normal in upper and lower extremities. Pinprick is normal in upper and lower extremities. Vibration is normal in upper and lower extremities. Reflexes Right Left Brachioradialis 2+ 2+ Biceps 2+ 2+ Patellar 2+ 2+ Achilles 2+ 2+ Right Plantar: downgoing Left Plantar: downgoing Right pathological reflexes: Ana Luisa's absent. Ankle clonus absent. Left pathological reflexes: Ana Luisa's absent. Ankle clonus absent. Coordination Cpyxwm-mt-citx, rapid alternating movements and jhne-eq-ssya normal bilaterally without dysmetria. Gait Normal casual, toe, heel and tandem gait. Romberg is absent. PROCEDURE: Brachial Plexus injection After explaining the risks, complications, and benefits of the procedure, the patient was seated inthe chair. Allergies were reviewed, the consent was signed. The bilateral region posterior to the clavicle is identified and the most tender area is marked for injection then cleaned using sterile technique, and surface anesthetic; a 30 gauge 1/2 spinal needle was advanced and the patient received 1 cc of Bupivacaine 0.5% and 1 cc Dexamethasone 4mg. The needle was removed. The patient toleratedthe procedure well and without complications. A Band-Aid dressing was applied on the injection site. The Procedure was done by Dr. Elvi Cadena. Posterior Shoulder Injection After explaining the risks, complications, and benefits of the procedure, the patient was seated inthe chair. Allergies were reviewed, the consent was signed. Palpated the left posterior edge of theacromion the most tender area is recognized and marked for the injection site. Using sterile technique, and surface anesthetic; a 30 gauge 1/2 spinal needle was inserted inferior to the posterolateral acromion and directed laterally into the subacromial space, aiming for the anterolateral corner ofthe acromion.The needle was then withdrawn about 1mm. The patient received an injection of 0.5 cc of Bupivacaine 0.5% and 0.5 cc of Dexamethasone 4mg in a fan-like distribution. The needle was removed, and the patient handled the procedure well. A band-Aid was applied on the injection site. The Procedure was done by Dr. Elvi Cadena. This note was scribed by Jocelyn Arango(Neisha) acting under the direction of Elvi Cadena MD. Thecontent has been reviewed and confirmed for accuracy by Elvi Cadena MD ASSESSMENT AND PLAN: 1. Nerve root and plexus disorder, unspecified (Primary) - dexAMETHasone sod phos (Decadron) injection 4 mg - bupivacaine (Marcaine) 0.5 % injection 5 mg 2. Acute pain of left shoulder - dexAMETHasone sod phos (Decadron) injection 4 mg - bupivacaine (Marcaine) 0.5 % injection 5 mg I will bring him back in 6 weeks to see if he has received 50% or greater pain relief and at that time I will repeat the injections if needed. documented in this encounterNorthwest Medical [id number] NoteHNO ID: [id number] Author: MEMO COLE MD Service: ? Author Type: Physician Type: Progress Notes Filed: 11/07/2024 11:09 Note Text: NAME: Jovani Melendez CLINIC NO.: [id number] DATE OF SERVICE: November 07, 2024 (Curtis) Some elements in this clinic note that are critical to medical decision making have been carefully reviewed and included from a prior clinic note dated: November 02, 2023 (Curtis) Referring Provider: Griselda Hastings, DO Additional Clinicians involved in Jovani Melendez's care: Dr Kimberly Nichole ENT, Dr. Ibarra [place] surgery [facility] DIAGNOSIS: Head and neck cancer ASSESSMENT: 63 year old man who underwent selective right [...] 1.8 mm of invasive disease (Stage I, [id number], HPV+ oropharyngeal SCC).resected T1 N1 base of [...] in plan for intervention to neck. PLAN: Obtain coloscopy report and pathology results [place] [facility] [place] and labs in 1 year RTC 1 week after HPI: CASE HISTORY: Reverse Chronological Order 11/03/2024 - CT Neck/Chest: Neck: Primary: Category 1. Expected post-treatment changes in the neck without evidence of recurrent disease in the primary site. Neck: Category 1. No evidence of abnormal lymph nodes. Chest: No CT evidence of new metastatic disease in the chest. Pulmonary nodules measuring up to 3 mm are unchanged. No new or enlarging pulmonary nodules are identified. 10/26/2023 - CT Neck/Chest: Neck: Expected post-treatment changes in the neck without evidence of recurrent disease in the primary site. No evidence of abnormal lymph nodes. Chest: New streaky scarring/discoid atelectasis in the bilateral lower lung mcgrath. Subcentimeter nodular opacities measuring less than 5 mm, stable since 04/08/20. No evidence of intrathoracic metastases. 07/18/2023 - MRI Brain/Neck. Brain: Abnormal increased T2 signal in the naldo, right greater than left, worrisome for low-grade malignancy such as a glioma. Infectious or inflammatory process cannot be excluded, although this seems unlikely given the absence of enhancement. No acute intracranial hemorrhage, infarction, mass effect or midline shift elsewhere in the brain Neck: No acute abnormality. No focal disc herniation, spinal stenosis or impingement upon the cervical cord. Multilevel degenerative changes with mild disc bulging and posterior osteophytic ridging, as described above. Prominent loss of disc height from disc degenerative disease at C5-C6, C6-C7 and T1-T2. Neural foraminal stenosis at multiple levels, severe [...] adenopathy is identified. 10/05/2021 - [place] Brain: [facility] There is T2 and T2 flair hyperintense [...] foci suggesting mild chronic microvascular ischemic change. Brainst (more content not included)...[facility]05-19-2025 History of Present illness Narrative* Curtis Da Silva RN - 11/03/2024 8:15 AM EDT Radiology Service Progress Note DATE OF SERVICE: November 03, 2024 TIME: 8:13 AM PATIENT WEIGHT: 175LBS PATIENT IDENTITY VERIFICATION COMPLETED USING TWO (2) STANDARD IDENTIFIERS: Name and Date of confirmed by patient verbally. FALL SCREENING: Has the patient had 2 falls in the last year or 1 fall with injury or currently using an Ambulatory Assistive Device (Walker, Cane, Wheelchair, Crutches, etc.)? No PATIENT GENDER DATA: Assigned male at ALLERGIES: Reviewed and unchanged CONTRAST ALLERGY: No EXAM: CT -CONTRAST INDUCED NEPHROPATHY RISK FACTORS: Patient age > 60 years CREATININE: Creatinine Date Value Ref Range Status 10/26/2023 1.01 0.73 - 1.22 mg/dL Final 10/27/2022 0.93 0.73 - 1.22 mg/dL Final 10/06/2021 1.01 0.73 - 1.22 mg/dL Final Estimated Glomerular Filtration Rate Date Value Ref Range Status 10/26/2023 85 >=60 mL/min/1.73m Final Comment: Estimated Glomerular Filtration [...] RESULTS: POC done: Yes, See Lab Tab November 03, 2024 TREATMENT: N/A IV SITE: Ambulatory: A peripheral IV was started in the Right antecubital site with a Angio cath: 20 gauge. IV SITE APPEARANCE: Clean,Dry and Intact SIGNATURE: Curtis Da Silva RN PATIENT NAME: Jovani Melendez DATE: November 03, 2024 TIME: 8:13 AM * Devin Doyle RT(R) - 11/03/2024 8:15 AM EDT Radiology Service Progress Note PATIENT NAME: Jovani Melendez DATE OF SERVICE: November 03, 2024 TIME: 8:32 AM PATIENT IDENTITY VERIFICATION COMPLETED USING TWO (2) IDENTIFIERS: Name and Date of confirmedby patient verbally. FALL SCREENING: Has the patient had 2 falls in the last year or 1 fall with injury or currently using an Ambulatory Assistive Device (Walker, Cane, Wheelchair, Crutches, etc.)? No PATIENT GENDER DATA: Assigned male at PATIENT RELEVANT IMPLANT DATA REVIEWED: Not Applicable PATIENT PRESENTS WITH AN IMPLANTABLE OR ATTACHED HAM DOCTOR: No RADIOLOGY DEPARTMENT: CT; Exam(s) Completed: Chest and Neck PERIPHERAL IV DATA: Site assessment: Clean,Dry and Intact, Site disposition Discontinued SIGNED BY: RT Craig(R) November 03, 2024 8:32 AM documented in this [facility] NoteHNO ID: [id number] Author: CURTIS DA SILVA RN Service: ? Author Type: Registered Nurse Type: Progress Notes Filed: 11/03/2024 08:13 Note Text: Radiology Service Progress Note DATE OF SERVICE: November 03, 2024 TIME: 8:13 AM PATIENT WEIGHT: 175LBS PATIENT IDENTITY VERIFICATION COMPLETED USING TWO (2) STANDARD IDENTIFIERS: Name and Date of confirmed by patient verbally. FALL SCREENING: Has the patient had 2 falls in the last year or 1 fall with injury or currently using an Ambulatory Assistive Device (Walker, Cane, Wheelchair, Crutches, etc.)? No PATIENT GENDER DATA: Assigned male at ALLERGIES: Reviewed and unchanged CONTRAST ALLERGY: No EXAM: CT -CONTRAST INDUCED NEPHROPATHY RISK FACTORS: Patient age > 60 years CREATININE: Creatinine Date Value Ref Range Status 10/26/2023 1.01 0.73 - 1.22 mg/dL Final 10/27/2022 0.93 0.73 - 1.22 mg/dL Final 10/06/2021 1.01 0.73 - 1.22 mg/dL Final Estimated Glomerular Filtration Rate Date Value Ref Range Status 10/26/2023 85 >=60 mL/min/1.73m? Final Comment: Estimated Glomerular Filtration [...] RESULTS: POC done: Yes, See Lab Tab November 03, 2024 TREATMENT: N/A IV SITE: Ambulatory: A peripheral IV was started in the Right antecubital site with a Angio cath: 20 gauge. IV SITE APPEARANCE: Clean,Dry and Intact SIGNATURE: Curtis Da Silva RN PATIENT NAME: Jovani Melendez DATE: November 03, 2024 TIME: 8:13 [facility]05-19-2025 NoteHNO ID: [id number] Author: DEVIN DOYLE RT(R) Service: ? Author Type: Technologist Type: Progress Notes Filed: 11/03/2024 08:32 Note Text: Radiology Service Progress Note PATIENT NAME: Jovani Melendez DATE OF SERVICE: November 03, 2024 TIME: 8:32 AM PATIENT IDENTITY VERIFICATION COMPLETED USING TWO (2) IDENTIFIERS: Name and Date of confirmed by patient verbally. FALL SCREENING: Has the patient had 2 falls in the last year or 1 fall with injury or currently using an Ambulatory Assistive Device (Walker, Cane, Wheelchair, Crutches, etc.)? No PATIENT GENDER DATA: Assigned male at PATIENT RELEVANT IMPLANT DATA REVIEWED: Not Applicable PATIENT PRESENTS WITH AN IMPLANTABLE OR ATTACHED HAM DOCTOR: No RADIOLOGY DEPARTMENT: CT; Exam(s) Completed: Chest and Neck PERIPHERAL IV DATA: Site assessment: Clean,Dry and Intact, Site disposition Discontinued SIGNED BY: Devin Doyle, RT(R) November 03, 2024 8:32 [facility]05-19-2025 Telephone encounter Note* Telephone Encounter - Curtis Da Silva RN - 11/03/2024 7:49 AM EDT Please sign pended labs for 1 year f/u-will draw with CT today Thank You! Curtis Da Silva RN [facility]05-19-2025 Miscellaneous Notes* Telephone Encounter - Curtis Da Silva RN - 11/03/2024 7:49 AM EDT Please sign pended labs for 1 year f/u-will draw with CT today Thank You! Curtis Da Silva RN documented in this encounterHol[facility] History of Present illness Narrative* Camille Harris MD - 10/13/2024 9:00 AM EDT Jovani Melendez is a 63 y.o. year old male s/p C5-7 ACDF Surgical History[1] Current Medications[2] There were no vitals filed for this visit. Objective Aox3 PERRL, EOMI 5/5 x 4 Incision well healed Relevant Results Upright xrays: bottom screws appear to have backed out mildly without protrusion into the soft tissue, appears that the bones have begun to fuse appropriately MRI C-spine: moderate stenosis C4-7 Assessment and Plan: Jovani Melendez is a very nice 63 y.o. year old patient s/p C5-7 ACDF here for a 6 month post-op visit. The patient is overall doing well with improvement in his overall pain including his shoulder pain. He has had two epidural injections with improvement in his pain. However, he has resumed smoking (6 cigarettes a day). I advised him that he should continue with pain management as it is working well.We will continue to watch that anterior screw at C7 to make sure it does not back out any further. We will see the patient again in 6 months with repeat upright xrays. We will get separate upright xrays in 2 months to assess the C7 screw. Camille Harris MD Apartment [employer] Assistant Manager of Neurosurgery [facility] Neuroscience ICU Office: [phone] [1] Past Surgical History: Procedure Laterality Date OTHER SURGICAL HISTORY right neck dissection SKIN CANCER EXCISION 02/10/2008 TONSILLECTOMY [2] Current Outpatient Medications: albuterol 90 mcg/actuation inhaler, [...] by mouth every 8 hours if needed formuscle spasms., Disp: 90 tablet, Rfl: 0 cyclobenzaprine (Flexeril) 10 mg tablet, Take 1 tablet (10 mg) by mouth 3 times a day as needed formuscle spasms for up to 7 days., Disp: 21 tablet, Rfl: 0 lisinopril 10 mg tablet, Take 1 tablet (10 mg) by mouth once daily., Disp: , Rfl: pregabalin (Lyrica) 50 mg capsule, Take 1 capsule (50 mg) by mouth 2 times a day., Disp: 60 capsule, Rfl: 0 documented in this [facility] Work Phone: 1(146) 475-816504-21-2025 [facility] [place] [address] [place] [address] CT Scan Report Signed Patient: Jovani Melendez MR#: [id number] : 1960 Acct:[id number] Age/Sex: 63 / M ADM Date: 5 Loc: ER Room: Type: [facility] ER Attending Dr: Copies to: Manisha Negron APRN~ Ordering Provider: Manisha Negron APRN Date of Service: 10/06/24 CT/CT abdomen pelvis w con: pain CT ABDOMEN AND PELVIS WITH CONTRAST COMPARISON: 04/06/2016 CLINICAL DATA: Sensation of something stuck in the throat for the past month with decrease in appetite and constipation. Spiral images were obtained through the abdomen pelvis following 90 mL Isovue- 300. This CT exam wasperformed using one or more following dose reduction techniques: Automated exposure control, adjustment of the mA and/or kV accordingto patient size, or use of iterative reconstruction technique. Limited cuts through the lung bases show no contributory findings within limits of respiratory motion. There is some artifact through the upper abdomen from patient's arms and chest leads. There is alsomotion. No intrahepatic masses are identified. No calcified gallstones are seen. The spleen, pancreas and adrenal glands show no acute findings. The renal nephrograms are symmetric. No hydronephrosisis identified. A couple small cysts are visualized at the lower pole of the right kidney. There is also a developing 1 cm lower pole nodule laterally which is not a simple cyst. There is no hydronephrosis. Mild atherosclerotic plaque is present at the aorta and iliac arteries. No enlarged lymph nodes or ascites are seen. The small bowel loops are not distended. Mild stool is visualized within the colon. There are left-sided colonic diverticula. Levoscoliotic curvature and degenerative changes are pres ent at the spine. Images through the pelvis show no dilated small bowel loops. There is no appendiceal inflammation. There are portions of the distal descending and sigmoid colons as well as the rectum which are not well distended and there is apparent wall thickening. There are additional colonic diverticula, without associated active inflammation. The prostate is not significantly enlarged however it does contain calcification. There is a poorly distended urinary bladder with wall thickening. No intraluminal abnormalities are seen. There isno ascites. There is additional atherosclerotic disease. There is a left iliacstents. CT/CT abdomen pelvis w con IMPRESSION: NO BOWEL OR URINARY TRACT OBSTRUCTION. SMALL SIMPLE RIGHT RENAL CYSTS AND INDETERMINANT LOWER POLE HYPODENSITY. THIS COULD BE FURTHER EVALUATED WITH ULTRASOUND OR MRI OR FOLLOWED UP WITH SERIAL CT TO ASSESS STABILITY. DIVERTICULOSIS. UNDER DISTENDED SEGMENTS OF DISTAL COLON WELL THE URINARY BLADDER WHERE THERE IS APPARENT WALL THICKENING. Impression dictated by: Dorothy Eubanks M.D.10/06/2024 4:08 PM Dictation Location: [place] [address] Transcribed By: MARISA 10/06/24 1608 Dictated By: Dorothy Eubanks MD 10/06/24 1556 Signed By: 10/06/24 1604 [facility] Work Phone: 1(483) 755-865904-21-2025 Radiology Diagnostic study [facility] [place] [address] [place] [address] CT Scan Report Signed Patient: Jovani Melendez MR#: [id number] : 1960 Acct:[id number] Age/Sex: 63 / M ADM Date: 5 Loc: ER Room: Type: [facility] ER Attending Dr: Copies to: Manisha Negron APRN~ Ordering Provider: Manisha Negron APRN Date of Service: 10/06/24 CT/CT soft tissue neck w con: Difficulty swallowing CLINICAL DATA: Sensation of something sticking in throat for the past month and decreased appetite.Anterior cervical fusion [address] SOFT TISSUE NECK WITH CONTRAST COMPARISON: 05/04/2023 Spiral images were obtained through the neck following 90 mL Isovue-300. This CT exam was performedusing one or more following dose reduction techniques: Automated exposure control, adjustment of the mA and/or kV according to patient size, or use of iterative reconstruction technique. No thyroid nodularity is identified. The submandibular and parotid glands appear symmetric. There is no significant enlargement of the adenoids or tonsils. The epiglottis and vocal cords are within normal limits. The airway is patent throughout its course with normal appearance of the mucosal surfaces. No radiopaque foreign bodies are seen. There are few similar small cervical lymph nodes. No developing lymphadenopathy is seen. There is carotid artery plaque. There is new anterior fusion with plate and screws extending from C5 through C7. Degenerative changes are again visualized. The imaged paranasal sinuses and mastoid are cells are clear. The upper imaged lungs show no contributory findin gs. CT/CT soft tissue neck w con IMPRESSION: NO ACUTE ABNORMALITIES INVOLVING THE NECK. Impression dictated by: Dorothy Eubanks M.D.10/06/2024 3:56 PM Dictation Location: [place] [address] Transcribed By: [facility] 10/06/24 155 Dictated By: Dorothy Eubanks MD 10/06/24 155 Signed By: 10/06/24 155 [facility] Work Phone: 1(124) 654-779203-27-2025 Evaluation note* Diagnosis Onset Date Resolution Status Admit Date Current every day smoker acute September 11, 2024 8:53am PAD (peripheral artery disease) acut e September 11, 2024 8:53am Right leg claudication acute [facility] 2024 8:53am [facility] Work Phone: 1(877) 891-398803-27-2025 Evaluation note* Diagnosis Onset Date Resolution Status Admit Date Current every day smoker acute September 11, 2024 8:53am PAD (peripheral artery disease) acut e September 11, 2024 8:53am Right leg claudication acute [facility] 2024 8:53am Cardiac arrhythmia acute October 272024 9:37am Essential hypertension acute Tn y 2024 9:37am Hyperlipidemia acute October 27, 2024 9:37am 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, 2024 9:37am PAD (peripheral artery disease) sophy mone October 27, 2024 9:37am [facility] Work Phone: 1(341) 396-957403-27-2025 Evaluation note* Diagnosis Onset Date Resolution Status Admit Date Current every day smoker acute September 11, 2024 8:53am PAD (peripheral artery disease) acut e September 11, 2024 8:53am Right leg claudication acute [facility] 2024 8:53am Abdominal pain acute September 1:02pm Change in bowel habits acute Ap ril 2024 1:02pm Diarrhea acute October 10, 1:02pm Dysphagia acute October 10 1:02pm Early satiety acute October 10, 2024 1:02pm Unexplained weight loss acute A pril 2024 1:02pm Cardiac arrhythmia acute October 272024 9:37am Essential hypertension acute Ma y 2024 9:37am Hyperlipidemia acute October 27, 2024 9:37am 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, 2024 9:37am PAD (peripheral artery disease) sophy mone October 27, 2024 9:37am Abdominal pain acute November 17, 2024 1:57pm Change in bowel habits acute Ju ne 2024 1:57pm Diarrhea acute November 17, 2024 1:57pm Dysphagia acute November 17, 2024 1:57pm [facility] Work Phone: 1([phone]) 578-414203-27-2025 Evaluation note* Diagnosis Onset Date Resolution Status Admit Date Current every day smoker acute September 11, 2024 8:53am PAD (peripheral artery disease) acut e September 11, 2024 8:53am Right leg claudication acute Ma [facility] 2024 8:53am Abdominal pain acute September 1:02pm Change in bowel habits acute Ap ril 2024 1:02pm Diarrhea acute October 10, 1:02pm Dysphagia acute October 10 1:02pm Early satiety acute October 10, 2024 1:02pm Unexplained weight loss acute A pril 2024 1:02pm Cardiac arrhythmia acute October 272024 9:37am Essential hypertension acute Ma y 2024 9:37am Hyperlipidemia acute October 27, 2024 9:37am 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 CHIEF COMPLAINT REASON FOR VISIT : Injection HPI: Jovani Melendez is a 63 y.o. male who presents for brachial injections. States pain is 10/10. CURRENT MEDICATIONS: ALLERGIES/DISCONTINUE MEDICATIONS Current Outpatient Medications [...] ezetimibe (ZETIA) 10 mg, Oral, Daily HYDROcodone-acetaminophen ([place]) 5-325 MG tablet take 1 tablet orally [...] 24 hours, Apply 21 mg daily x 6weeks then apply 14 mg patch daily x [...] Depression: Not at risk (06/30/2024) Received from [facility] PHQ-2 Patient Health Questionnaire-2 Score: 2 REVIEW OF SYMPTOMS: Review of Systems Constitutional: Negative for chills, diaphoresis, fatigue and fever. HENT: Negative for ear pain, tinnitus and trouble swallowing. Eyes: Negative for photophobia and visual disturbance. Respiratory: Negative for cough and shortness of breath. Cardiovascular: Negative for palpitations and leg swelling. Gastrointestinal: Negative for abdominal pain and nausea. Genitourinary: Negative for difficulty urinating and urgency. Musculoskeletal: Positive for myalgias, neck pain and neck stiffness. Negative for arthralgias and back pain. Neurological: Negative for tremors, weakness, light-headedness and numbness. Psychiatric/Behavioral: Negative for agitation, confusion and suicidal ideas. OBJECTIVE: 09/11/2024 10:46 AM 07/31/2024 1:26 PM 07/02/2024 2:18 PM Vitals BMI 27.06 kg/m2 27.37 kg/m2 28.28 kg/m2 BSA (m2) 1.97 m2 1.98 m2 2.01 m2 Systolic 135 131 143 Diastolic 68 89 77 Heart Rate 61 81 86 Weight (lb) 178 180 186 EXAM: Neurological Exam Mental Status Awake, alert and oriented to person, place and time. Oriented to person, place and time. Recent andremote memory are intact. Speech is normal. Language is fluent with no aphasia. Attention and concentration are normal. Cranial Nerves CN II: Visual acuity is normal. Visual mcgrath full to confrontation. CN III, IV, : Extraocular movements intact bilaterally. Normal lids and orbits bilaterally. Pupils equal round and reactive to light bilaterally. CN V: Facial sensation is normal. CN VII: Full and symmetric facial movement. CN VIII: Hearing is normal. CN XII: Tongue midline without atrophy or fasciculations. Motor Normal muscle bulk throughout. Normal muscle tone. Right Left Wrist flexion 5 5 Wrist extension 5 5 Right Left Deltoid 5 5 Biceps 5 5 Triceps 5 5 Wrist flexor 5 5 Wrist extensor 5 5 Glutei 5 5 Iliopsoas 5 5 Quadriceps 5 5 Gastrocnemius 5 5 Anterior tibialis 5 5 Posterior tibialis 5 5 Sensory Light touch is normal in upper and lower extremities. Pinprick is normal in upper and lower extremities. Vibration is normal in upper and lower extremities. Reflexes Right Left Brachioradialis 2+ 2+ Biceps 2+ 2+ Patellar 2+ 2+ Achilles 2+ 2+ Right Plantar: downgoing Left Plantar: downgoing Right pathological reflexes: Ana Luisa's absent. Ankle clonus absent. Left pathological reflexes: Ana Luisa's absent. Ankle clonus absent. Coordination Prrqwr-zu-dozv, rapid alternating movements and kxnm-oa-itzz normal bilaterally without dysmetria. Gait Normal casual, toe, heel and tandem gait. Romberg is absent. PROCEDURE: Brachial Plexus injection After explaining the risks, complications, and benefits of the procedure, the patient was seated inthe chair. Allergies were reviewed, the consent was signed. The bilateral region posterior to the clavicle is identified and the most tender area is marked for injection then cleaned using sterile technique, and surface anesthetic; a 25 gauge 1 2 spinal needle was advanced and the patient received 30 cc of Bupivacaine 0.5% and 1 cc Dexamethasone 4mg. The needle was removed. The patient tolerated the procedure well and without complications. A Band-Aid dressing was applied on the injection site. ASSESSMENT AND PLAN: Diagnoses and all orders for this visit: Nerve root and plexus disorder, unspecified - bupivacaine (Marcaine) 0.5 % injection 5 mg - dexAMETHasone sod phos (Decadron) injection 4 mg 1. Nerve root and plexus disorder, unspecified (Primary) - bupivacaine (Marcaine) 0.5 % injection 5 mg - dexAMETHasone sod phos (Decadron) injection 4 mg I will bring her back in 4-6 weeks to see if he has received 50% or greater pain relief and at thattime I will repeat the injections if needed. documented in this encounterNorthwest Medical [id number] History of Present illness Narrative* Elvi Cadena MD - 07/31/2024 1:20 PM EST Images from the original note were not included. CHIEF COMPLAINT REASON FOR VISIT : Injections HPI: Jovani Melendez is a 63 y.o. male who presents for left brachial. States pain is around a 8/10. He sawpain management they gave him injections and they hurt bad, he said the pain was awful. CURRENT MEDICATIONS: ALLERGIES/DISCONTINUE MEDICATIONS Current Outpatient Medications [...] ezetimibe (ZETIA) 10 mg, Oral, Daily HYDROcodone-acetaminophen ([place]) 5-325 MG tablet take 1 tablet orally [...] 24 hours, Apply 21 mg daily x 6weeks then apply 14 mg patch daily x [...] Depression: Not at risk (06/30/2024) Received from [facility] PHQ-2 Patient Health Questionnaire-2 Score: 2 REVIEW OF SYMPTOMS: Review of Systems OBJECTIVE: 07/31/2024 1:26 PM 07/02/2024 2:18 PM 05/21/2024 2:04 PM Vitals BMI 27.37 kg/m2 28.28 kg/m2 26.46 kg/m2 BSA (m2) 1.98 m2 2.01 m2 1.95 m2 Systolic 131 143 120 Diastolic 89 77 82 Heart Rate 81 86 Height (in) 5' 8 Weight (lb) 180 186 174 EXAM: Neurological Exam PROCEDURE: Brachial Plexus injection After explaining the risks, complications, and benefits of the procedure, the patient was seated inthe chair. Allergies were reviewed, the consent was signed. The left region posterior to the clavicle is identified and the most tender area is marked for injection then cleaned using sterile technique, and surface anesthetic; a 25 gauge 1 1/2 spinal needle was advanced and the patient received 0.5 cc of Bupivacaine 0.5% and 0.5 cc Dexamethasone 4mg. The needle was removed. The patient tolerated the procedure well and without complications. A Band-Aid dressing was applied on the injection site. Ultrasound images were placed in the media folder. ASSESSMENT AND PLAN: 1. Nerve root and plexus disorder, unspecified (Primary) bupivacaine (Marcaine) 0.5 % injection 5 mg - dexAMETHasone sod phos (Decadron) injection 4 mg I will bring him back in 6-8 weeks to see if he has received 50% or greater pain relief and if he has then I will repeat the injections if needed. documented in this encounterNorthwest Medical [id number] Evaluation note* Author Shilpi Lantigua [facility] Authored July 03, 2024 4 :44pm Sooner if needed, the ER if concerns,The above note written by Shilpi Lantigua LPN acting as human recorder, note dictated by Dr. Griselda Hastings [facility] Work Phone: 1(169) 810-766901-15-2025 History of Present illness Narrative* Elvi Cadena MD - 07/02/2024 2:00 PM EST Images from the original note were not [...] ezetimibe (ZETIA) 10 mg, Oral, Daily HYDROcodone-acetaminophen ([place]) 5-325 MG tablet take 1 tablet orally [...] 24 hours, Apply 21 mg daily x 6weeks then apply 14 mg patch daily x [...] Depression: Not at risk (06/30/2024) Received from [facility] PHQ-2 Patient Health Questionnaire-2 Score: 2 REVIEW [...] of the procedure, the patient was seated inthe chair. Allergies were reviewed, the consent was [...] injections at that time. documented in this encounterNorthwest Medical [id number] History of Present illness Narrative* Camille Harris MD - 06/30/2024 9:00 AM EST Jovani Melendez is a 63 y.o. year [...] by mouth every 8 hours if needed formuscle spasms., Disp: 90 tablet, Rfl: 0 cyclobenzaprine (Flexeril) 10 mg tablet, Take 1 tablet (10 mg) by mouth 3 times a day as needed formuscle spasms for up to 7 days., Disp: [...] with continuous left shoulder pain and neck painabove the surgery site, unchanged from prior surgery. [...] another set of XR. Camille Harris MD Apartment Community Assistant Manager of Neurosurgery [facility] Neuroscience ICU Office: [phone] Scribe Attestation By signing my name below, I, Shira Sen, Erlinda, attest that this documentation has been preparedunder the direction and in the presence of Camille Harris MD. documented in this [facility] Work Phone: 1(532) 155-406612-04-2024 History of Present illness Narrative* Elvi Cadena MD - 05/21/2024 2:00 PM EST Images from the original note were not included. CHIEF COMPLAINT REASON FOR VISIT : Injections HPI: Jovani Melendez is a 63 y.o. male who presents for injections. He states he had surgery about 6 weeks ago on April 09 . He states his pain level is a 8/10. He states his muscle spasms have not quitsince his surgery. He states his left side [...] ezetimibe (ZETIA) 10 mg, Oral, Daily HYDROcodone-acetaminophen ([place]) 5-325 MG tablet take 1 tablet orally [...] 24 hours, Apply 21 mg daily x 6weeks then apply 14 mg patch daily x [...] Depression: Not at risk (04/09/2024) Received from [facility] PHQ-2 Patient Health Questionnaire-2 Score: 0 REVIEW [...] of the procedure, the patient was seated inthe chair. Allergies were reviewed, the consent was [...] his injections if needed. documented in this encounterNorthwest Medical [id number] History of Present illness Narrative* Solomon Narayanan PA-C - 04/30/2024 1:00 PM EST Images from the original note were not included. [facility] [place] Department of Neurological Surgery Post Operative Patient [...] his oxycodone usage though request refill today. Afterreview of OARRS report no red flags identified this sent to pharmacy. Inspection of his incision shows well-approximated, nonerythemic, nonedematous surgical incision with good fibrotic tissue spanning. Referral placed outpatient physical therapy as well as an order for x-rays to be taken just prior to 3- month follow-up with surgeon. systems reviewed and negative other than what is listed in the history of present illness Patient Active Problem List Diagnosis Cervical radiculopathy Senile osteoporosis CAD (coronary artery disease) Peripheral vascular disease ([facility]) Past Medical History: Diagnosis Date Anxiety Cataract s/p excision of left Cervical radiculopathy Chronic pain disorder Coronary artery disease Depression Dysphagia thin liquids Hypertension NPH (normal pressure hydrocephalus) ([facility]) PAD (peripheral artery disease) ([facility]) s/p stent (05/2023) on ASA 81mg Peripheral vascular disease ([facility]) Pontine lesion watchful waiting Pulmonary nodule Skin cancer of scalp s/p excsison Spinal stenosis severe cervical stenosis, left sided foraminal stenosis at C5-6 and C6-7 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 Tongue cancer ([facility]) s/p resection Vision loss Past Surgical History: [...] Throat cancer in his father; bladder cancer inhis father. Current Outpatient Medications: albuterol 90 mcg/actuation [...] mouth 3 times a day as needed formuscle spasms for up to 7 days., Disp: 21 tablet, Rfl: 0 cyclobenzaprine (Flexeril) 10 mg tablet, Take 1 tablet (10 mg) by mouth every 8 hours if needed formuscle spasms., Disp: 90 tablet, Rfl: 0 lisinopril [...] office or contact me directly. Sincerely, RICH Hernandez, PAFranC Associate Physician Biogeographer, Neurosurgery Clinical Apartment Community Assistant Manager [facility] [place] [address] documented in this [facility] Work Phone: 1(637) 537-896811-11-2024 Evaluation note* Diagnosis Onset Date Resolution Status Admit Date Cardiac arrhythmia acute Novemb er 2023 9:39am Essential hypertension acute No vember 2023 9:39am Hyperlipidemia acute April 182023 9:39am Glioma of brain deleted April 28, 2024 9:39am PAD (peripheral artery disease) sophy mone April 28, 2024 9:39am Hyperlipidemia acute July 032024 9:23am S/P cervical discectomy acute J anuary 2024 9:23am Screening for prostate cancer acute July 03, 2024 9:23am [facility] Work Phone: [phone]) 724-567810-24-2024 Hospital course Narrative* Aaron Gallo PA-C - [...] HYDROcodone-acetaminophen 5-325 mg tablet; Commonly known as: [place] tiZANidine 4 mg capsule; Commonly known as: Zanaflex Outpatient Follow-Up Future Appointments Date Time Provider Department Center 04/30/2024 1:00 PM Solomon Narayanan PA-C [id number] [place] 05/02/2024 9:00 AM [facility] 05/02/2024 10:00 AM Ignacia Jack MD [id number] [facility] 06/30/2024 9:00 AM Camille Harris MD [id number] [place] Aarno Gallo PA-C documented in this [facility] Work Phone: [phone]) 792-298310-24-2024 History of Present illness Narrative* Nikole Lezama, PharmD - 04/10/2024 12:11 PM EDT Pharmacy Medication History Review Jvoani Melendez is a 63 y.o. male admitted for Cervical radiculopathy. Pharmacy reviewed the patient's zivwz-ez-acaiebhor medications and allergies for accuracy. Medications ADDED: norco Medications CHANGED: Tizanidine nightly to as needed Medications REMOVED: Diamox Albuterol The list below reflects the updated MEDIA RELATIONS COORDINATOR list. Prior to Admission Medications Prescriptions Last Dose Informant HYDROcodone-acetaminophen ([place]) 5-325 mg tablet Self Sig: Take 1.5 [...] Report Patient interview (good historian-required some prompting) [facility] medical note 01/29 Additional Comments: none Nikole Lezama PharmD Transitions of Care Pharmacist 04/10/24 Secure Chat preferred If no response call [phone] or [employer] Rec * Tori Johnson OT - 04/10/2024 11:57 AM EDT Occupational Therapy Evaluation Patient Name: Jovani Melendez Today's Date: 04/10/2024 Room: [address] [place] [address] Time Calculation Start Time: 1019 Stop Time: [...] bars in shower Prior Function: Level of [place]: Independent with ADLs and functional transfers, Independent with homemaking with ambulation ADL Assistance: Independent Homemaking Assistance: Independent Ambulatory Assistance: Independent 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, 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 [...] LUE LUE: Within Functional Limits Outcome Measures: [facility] Daily Activity Putting on and taking off [...] 11:57 AM TORI JOHNSON OT Rehab Office: [phone] * Tia Caceres, PT - 04/10/2024 10:33 AM EDT Physical Therapy Physical Therapy Evaluation Patient Name: Jovani Melendez Department: [place] [address] Room: [address] [place] [address] Today's Date: 04/10/2024 Time Calculation Start Time: [...] Prior Function Per Pt/Caregiver Report Level of [place]: (independent ambulation in/outdoors no device, independent stairclimbing as needed, no falls) ADL Assistance: Independent Homemaking Assistance: Independent Ambulatory Assistance: Independent 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 [facility] Work Phone: [phone]) 974-669610-23-2024 Plan of care note* Care Plan - [...] goals for the shift include pain management. [facility] Work Phone: 1(411) 635-988110-23-2024 Miscellaneous Notes* Care Plan - Elizabeth Esposito [...] (B) Operative Note Date: 04/09/2024 OR Location: [facility] OR Name: Jovani Melendez, : 1960, Age: 63 y.o., , Sex: male Diagnosis Pre-op Diagnosis * Cervical radiculopathy [M54.12] * Senile osteoporosis [M81.0] Post-op Diagnosis * Cervical radiculopathy [M54.12] * Senile osteoporosis [M81.0] Procedures Fusion Spine Anterior Cervical and Discectomy C5-6, C6-7 30166 - GA ARTHRD ANT INTERBODY DECOMPRESS CERVICAL BELW C2 GA ARTHRD ANT INTERBODY DECOMPRESS CERVICAL BELW C2 [53226] GA ARTHRD ANT INTERDY CERVCL BELW C2 EA ADDL NTRSPC [15056] GA ALLOGRAFT FOR SPINE SURGERY ONLY STRUCTURAL [38713] GA MICROSURG TQS REQ USE OPERATING MICROSCOPE [84166] Surgeons * Camille Harris - Primary Resident/Fellow/Other Biogeographer: Surgeons and Role: * Chicho Bryan MD [...] 85 mL Specimen: No specimens collected Staff: Fire Manager: Derrell Scrub Person: Beverly Scrub Person: Shaina Drains and/or Catheters: Closed/Suction Drain 1 Neck Bulb 10 Fr. (Active) Urethral Catheter Double-lumen;Non-latex 16 Fr. (Active) Tourniquet Times: Implants: Implants Type Name Action Serial No. Spinal Hardware SCREW, DISTRACTION, 14 MM - [id number] Used, Not Implanted Spinal Hardware ALLOGRAFT, TRIAD LORDOTIC 6 X 11 X 14 - [id number] - [id number] Implanted [id number] Spinal Hardware ALLOGRAFT, TRIAD LORDOTIC 6 X 11 X 14 - [id number] - [id number] Implanted [id number] Spinal Hardware PLATE, ACP, 1.6V, 2 LEVEL, 34MM - [id number] Implanted Spinal Hardware SCREW, ACP, SELF DRILL, 3.5 X 17MM, VARIABLE - [id number] Implanted 3.5 X 19MM SCREW Implanted Findings: [...] then placed our self-retaining retractor in and [place] pins in and placed the disc space [...] 04/09/2024 4:50 PM EDT documented in this [facility] Work Phone: [phone]) 770-885010-23-2024 Nurse Note* Shantelle Pacheco RN - 04/09/2024 7:03 PM EDT Patient transferred from PACU to [id number] via stretcher in stable condition. Patient oriented to room, bed, and call light. Skin assessment witnessed by Brianda Dowling RN. Will continue to monitor. [facility]10-23-2024 Nurse Note* Shantelle Pacheco RN - 04/09/2024 7:03 PM EDT Patient transferred from PACU to [id number] via stretcher in stable condition. Patient oriented to room, bed, and call light. Skin assessment witnessed by Brianda Dowling RN. Will continue to monitor. documented in this [facility] Work Phone: [phone]) 366-964410-23-2024 Hospital Note* Hospital Course - Aaron Gallo PA-C - 04/09/2024 5:04 PM EDT 63M h/p HTN, CAD, PAD s/p stent on ASA81, pontine glioma, tongue cancer p/w LUE radiculopathy, 04/09 s/p C5-7 ACDF 04/10 PT/OT DC recs no needs, post operative xray shows good position, Drain removed [facility] Work Phone: [phone]) 426-618610-23-2024 Note* Op Note - Chicho Bryan MD - 04/09/2024 2:30 PM EDT Fusion Spine Anterior Cervical and Discectomy C5-6, C6-7 (B) Operative Note Date: 04/09/2024 OR Location: [facility] OR Name: Jovani Melendez, : 1960, Age: 63 y.o., , Sex: male Diagnosis Pre-op Diagnosis * Cervical radiculopathy [M54.12] * Senile osteoporosis [M81.0] Post-op Diagnosis * Cervical radiculopathy [M54.12] * Senile osteoporosis [M81.0] Procedures Fusion Spine Anterior Cervical and Discectomy C5-6, C6-7 56244 - GA ARTHRD ANT INTERBODY DECOMPRESS CERVICAL BELW C2 GA ARTHRD ANT INTERBODY DECOMPRESS CERVICAL BELW C2 [38312] GA ARTHRD ANT INTERDY CERVCL BELW C2 EA ADDL NTRSPC [92390] GA ALLOGRAFT FOR SPINE SURGERY ONLY STRUCTURAL [] GA MICROSURG TQS REQ USE OPERATING MICROSCOPE [35001] Surgeons * Camille Harris - Primary Resident/Fellow/Other Biogeographer: Surgeons and Role: * Chicho Bryan MD [...] 85 mL Specimen: No specimens collected Staff: Fire Manager: Derrell Scrub Person: Beverly Scrub Person: Shaina Drains and/or Catheters: Closed/Suction Drain 1 Neck Bulb 10 Fr. (Active) Urethral Catheter Double-lumen;Non-latex 16 Fr. (Active) Tourniquet Times: Implants: Implants Type Name Action Serial No. Spinal Hardware SCREW, DISTRACTION, 14 MM - [id number] Used, Not Implanted Spinal Hardware ALLOGRAFT, TRIAD LORDOTIC 6 X 11 X 14 - [id number] - [id number] Implanted [id number] Spinal Hardware ALLOGRAFT, TRIAD LORDOTIC 6 X 11 X 14 - [id number] - [id number] Implanted [id number] Spinal Hardware PLATE, ACP, 1.6V, 2 LEVEL, 34MM - [id number] Implanted Spinal Hardware SCREW, ACP, SELF DRILL, 3.5 X 17MM, VARIABLE - [id number] Implanted 3.5 X 19MM SCREW Implanted Findings: [...] then placed our self-retaining retractor in and [place] pins in and placed the disc space [...] Harris MD at 04/09/2024 4:50 PM EDT [facility] Work Phone: [phone]) 277-662310-23-2024 Attending History and physical note* Rojas Edwards MD - 04/09/2024 12:22 PM EDT H&P reviewed. The patient was examined and there are no changes to the H&P. Cosigned by Camille Harris MD at 04/09/2024 12:53 PM EDT Source Note - Rick Mckinney APRN-LUCIO - 03/26/2024 10:30 AM EDT Images from [...] thin liquids Hypertension NPH (normal pressure hydrocephalus) ([facility]) PAD (peripheral artery disease) ([facility]) s/p stent (05/2023) on ASA 81mg Peripheral vascular disease ([facility]) Pontine lesion watchful waiting Pulmonary nodule Skin [...] liquid Use as directed daily preoperatively 02/11/24 Rick Mckinney APRN-VOCATIONAL NURSE chlorhexidine (Peridex) 0.12 % solution Swish and spit with 15ml of solution the night before and morning of surgery. Do not swallow. 02/11/24 Rick Mckinney APRN-VOCATIONAL NURSE citalopram (CeleXA) 20 mg tablet Take 0.5 [...] Flowsheet Row Pre-Admission Testing from 02/11/[address] [facility] Questionnaire Series Submission from 02/06/2024 in [facility] Care with Generic Provider Laura Can you take [...] filed at 02/11/20248 5.5 filed at 02/06/2024 003 Can you run a short distance? 0 filed at 02/11/20248 8 filed at 02/06/2024 003 Can you do light work around the house like dusting or washing dishes? 2.7 filed at 02/11/2024 81172.7 filed at 02/06/2024 003 Can you do moderate work around the house like vacuuming, sweeping floors or carrying groceries? 3.5 filed at 02/11/20248 3.5 filed at 02/06/2024 003 Can you do heavy work around the house like scrubbing floors or lifting and moving heavy furniture?0 filed at 02/11/20248 8 filed at 02/06/2024 0032 Can you do yard work like raking leaves, weeding or pushing a mower? 0 filed at 02/11/20241417 4.5filed at 02/06/2024 003 Can you have sexual relations? 0 filed at 02/11/20248 0 filed at 02/06/202431 Can you participate in moderate recreational activities like golf, bowling, dancing, doubles tennisor throwing a baseball or football? 0 filed at 02/11/20248 0 filed at 02/06/2024 0032 Can you [...] Flowsheet Row Pre-Admission Testing from 02/11/[address] [facility] DVT Score 11 filed at 02/11/2024 1506 BMI 30 or less filed at 02/11/2024 1506 RETIRED: Current Status Major surgery planned, lasting over 3 hours filed at 02/11/2024 1506 RETIRED: History Prior major surgery, Previous malignancy filed at 02/11/2024 1506 RETIRED: Age 60-75 years filed at 02/11/2024 1506 Modified Frailty Index Flowsheet Row Pre-Admission Testing from 02/11/[address] [facility] Non-independent functional status (problems with dressing, bathing, personal grooming, or cooking) 0 filed at 02/11/2024 1505 History of diabetes mellitus 0 filed at 02/11/2024 1505 History of COPD 0 filed at 02/11/2024 1505 History of CHF No filed at 02/11/2024 1505 History of [place] 0 filed at 02/11/2024 1505 History of [...] Flowsheet Row Pre-Admission Testing from 02/11/[address] [facility] High-Risk Surgery (Intraperitoneal, Intrathoracic,Suprainguinal vascular) 0 filed at 02/11/2024 1505 History of ischemic heart disease (History of [place], History of positive exercuse test, Current chest [...] Flowsheet Row Pre-Admission Testing from 02/11/[address] [facility] Smoking status 0 filed at 02/11/2024 1506 [...] Flowsheet Row Pre-Admission Testing from 03/26/[address] [facility] Pre-Admission Testing from 02/11/[address] [facility] Do you snore loudly? 0 filed at [...] Yellow, Dark-Yellow Appearance, Urine Clear Clear Specific [place], Urine 1.007 1.005 - 1.035 pH, Urine [...] Rate 63 BPM Atrial Rate 63 BPM GA Interval 268 ms QRS Duration 74 ms QT Interval 406 ms QTC Calculation(Bazett) 415 ms P [place] 58 degrees R [place] -3 degrees T [place] 18 degrees QRS Count 10 beats Q [...] given to patient. Neurosurgery: Camille Harris MD [facility] 01/03/24 seen for cervical radiculopathy. Neurosurgery: Addis Khan MD [facility] 11/05/23- [facility] seen for cervical stenosis of spine. 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 HEENT/Airway The patient has history of selective right neck dissection (II-V) and bilateral base of tongue/linguial tonsillar excision on 01/30/[address] 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 Currently with limited neck extension. No documented or reported history of airway difficulty. HemOnc: Memo Cole MD [facility] 11/02/23-[facility] seen for head and neck cancer. Cardiovascular [...] Cardiology Evaluation Cardiology: Lilliam Cason MD - [facility] (see media tab for last office note) [...] understanding ofpreoperative instructions. After Visit Summary given. [facility] Work Phone: 1(609) 933-292310-23-2024 History and physical note* Rojas Edwards MD - 04/09/2024 12:22 PM EDT H&P reviewed. The patient was examined and there are no changes to the H&P. Cosigned by Camille Harris MD at 04/09/2024 12:53 PM EDT Source Note - ANOOP Yanes - 03/26/2024 10:30 AM EDT Images from [...] pressure hydrocephalus) (Multi) PAD (peripheral artery disease) ([facility]) s/p stent (05/2023) on ASA 81mg Peripheral vascular disease ([facility]) Pontine lesion watchful waiting Pulmonary nodule Skin [...] Flowsheet Row Pre-Admission Testing from 02/11/[address] [facility] Questionnaire Series Submission from 02/06/2024 in [facility] with Generic Provider Laura Can you take care of yourself (eat, dress, bathe, or use toilet)? 2.75 filed at 02/11/2024 1418 2.75 filed at 02/06/2024 0032 Can you walk indoors, such as around your house? 1.75 filed at 02/11/2024 1418 1.75 filed at 02/06/2024 0032 Can you walk a block or two on level ground? 2.75 filed at 02/11/20248 2.75 filed at 32 Can you climb a flight of stairs or walk up a hill? 5.5 filed at 02/11/20248 5.5 filed at 02/06/2024 003 Can you run a short distance? 0 filed at 02/11/2024 1418 8 filed at 02/06/2024 003 Can you do light work around the house like dusting or washing dishes? 2.7 filed at 02/11/2024 32929.7 filed at 02/06/2024 003 Can you do moderate work around the house like vacuuming, sweeping floors or carrying groceries? 3.5 filed at 02/11/20241417 3.5 filed at 02/06/202431 Can you do heavy work around the house like scrubbing floors or lifting and moving heavy furniture?0 filed at 02/11/20248 8 filed at 02/06/202431 Can you do yard work like raking leaves, weeding or pushing a mower? 0 filed at 02/11/20241417 4.5filed at 02/06/202431 Can you have sexual relations? 0 filed at 02/11/20248 0 filed at 02/06/202431 Can you participate in moderate recreational activities like golf, bowling, dancing, doubles tennisor throwing a baseball or football? 0 filed at 02/11/20248 0 filed at 02/06/202431 Can you participate in strenous sports like swimming, singles tennis, football, basketball, or skiing? 0 filed at 02/11/20248 0 filed at 02/06/202431 DASI SCORE 18.95 filed at 02/11/20241417 39.45 filed at 02/06/202431 METS Score (Will be calculated only when all the questions are answered) 5.1 filed at 02/11/20241417 7.6 filed at 02/06/202431 Caprini DVT Assessment Flowsheet Row Pre-Admission Testing from 02/11/[address] [facility] DVT Score 11 filed at 02/11/2024 1506 BMI 30 or less filed at 02/11/2024 1506 RETIRED: Current Status Major surgery planned, lasting over 3 hours filed at 02/11/2024 1506 RETIRED: History Prior major surgery, Previous malignancy filed at 02/11/2024 1506 RETIRED: Age 60-75 years filed at 02/11/2024 1506 Modified Frailty Index Flowsheet Row Pre-Admission Testing from 02/11/[address] [facility] Non-independent functional status (problems with dressing, bathing, personal grooming, or cooking) 0 filed at 02/11/2024 1505 History of diabetes mellitus 0 filed at 02/11/2024 1505 History of COPD 0 filed at 02/11/2024 1505 History of CHF No filed at 02/11/2024 1505 History of [place] 0 filed at 02/11/2024 1505 History of [...] Flowsheet Row Pre-Admission Testing from 02/11/[address] [facility] High-Risk Surgery (Intraperitoneal, Intrathoracic,Suprainguinal vascular) 0 filed at 02/11/2024 1505 History of ischemic heart disease (History of [place], History of positive exercuse test, Current chest [...] Flowsheet Row Pre-Admission Testing from 02/11/[address] [facility] Smoking status 0 filed at 02/11/2024 1506 [...] Flowsheet Row Pre-Admission Testing from 03/26/[address] [facility] Pre-Admission Testing from 02/11/[address] [facility] Do you snore loudly? 0 filed at [...] at 03/26/2024 1023 0=No filed at 02/11/2024 141 Age older than 50 years old? 1=Yes filed at 03/26/2024 1023 1=Yes filed at 02/11/2024 141 Is your neck circumference greater than 17 inches (Male) or 16 inches (Female)? 0 filed at 03/26/2024 1023 0 filed at 02/11/2024 1418 Gender - Male 1=Yes filed at 03/26/2024 1023 1=Yes filed at 02/11/2024 141 STOP-BANG Total Score 3 filed at 03/26/2024 1023 3 filed at 02/11/2024 141 Recent Results (from the past 1344 hour(s)) [...] Yellow, Dark-Yellow Appearance, Urine Clear Clear Specific [place], Urine 1.007 1.005 - 1.035 pH, Urine [...] Rate 63 BPM Atrial Rate 63 BPM GA Interval 268 ms QRS Duration 74 ms QT Interval 406 ms QTC Calculation(Bazett) 415 ms P [place] 58 degrees R [place] -3 degrees T [place] 18 degrees QRS Count 10 beats Q [...] given to patient. Neurosurgery: Camille Harris MD [facility] 01/03/24 seen for cervical radiculopathy. Neurosurgery: Addis Khan MD [facility] 11/05/23- [facility] seen for cervical stenosis of spine. 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 HEENT/Airway The patient has history of selective right neck dissection (II-V) and bilateral base of tongue/linguial tonsillar excision on 01/30/[address] 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 Currently with limited neck extension. No documented or reported history of airway difficulty. HemOnc: Memo Cole MD [facility] 11/02/23-[facility] seen for head and neck cancer. Cardiovascular [...] Cardiology Evaluation Cardiology: Lilliam Cason MD - [facility] (see media tab for last office note) [...] After Visit Summary given. documented in this [facility] Work Phone: 1(260) 143-471710-15-2024 Evaluation note* Author Nida [facility] Authored April 01, 2024 1 0:01am The above note written by Leon Humphreys LPN, acting as human recorder, note dictated by Dr. Griselda Hastings. [facility] Work Phone: 1(810) 395-690808-15-2024 Evaluation note* Author Nida [facility] Authored January 31, 2024 10 :40am The above note written by Leon Humphreys LPN, acting as human recorder, note dictated by Dr. Griselda Hastings. Author [facility] Authored April 01, 2024 1 1:01am The above note written by Leon Humphreys LPN, acting as human recorder, note dictated by Dr. Griselda Hastings. [facility] Work Phone: 1(332) 804-405307-18-2024 History of Present illness Narrative* Camille Harris [...] bone stimulator after surgery. Camille Harris MD Apartment Community Assistant Manager of Neurosurgery [facility] Neuroscience ICU Office: [phone] Scribe Attestation By signing my name below, I, Parisa Cabrera , Scribe attest that this documentation has been prepared under the direction and in the presence of MD Shirley. documented in this [facility] Work Phone: 1(431) 408-484006-27-2024 History of Present illness Narrative* Ignacia Jack MD - 12/13/2023 10:00 AM EDT Patient ID: Jovani Melendez is a 63 y.o. male. Referring Physician: Shimon Heaton PA-C [id number] [place] [address] Primary Care Provider: Griselda Hastings DO Subjective History of Present Ilness: 62 y.o. presents in neurosurgical consultation from [facility] for cervical stenosis.C/o neck pain and LUE pain, numbness and weakness down to hand for 2 years. SawNeurosurgeon at and has had 2 spinal taps with some improvement. Went to [facility] to be assessed for hydrocephal;us and was told he does not have hydrocephalus. He saw Dr. Lara at the [facility]. Also pain behind left eye. No [...] issues. 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 INTERVAL HISTORY (12/13/2023): Since the last visit, he continues to have severe neck pain, which isslowly getting worse, along with some muffled hearing on the left side. He tried going back to parttime work, but the activity made the neck pain much more severe. He saw a Neurosurgeon at [facility] about the cervical stenosis, but he was unwilling to consider surgery for the neck due to the pontine lesion. He has now been to see a Neurosurgery PA (Solomon Narayanan) at [facility] about the neck, who thought [...] ROS is as per documentation in the [facility]. Objective BSA: There is no height or [...] Nate Benavidez 12/13/2023 9:38 AM Dictation workstation: [id number] Impression 1. Abnormal increased T2 signal in [...] will undergo a new MRI brain at [facility]. -I spent > 40 minutes in face to face consultation to review and discuss the above; 50% of whichor more was dedicated to counseling. Ignacia Jack MD documented in this [facility] Work Phone: 1(223) 925-190906-27-2024 Instructions* Patient Instructions* Alondra Escamilla RN - 12/13/2023 10:00 AM EDT Your next appointment will be in 5 months. Please schedule your MRI prior to this visit. Please contact [phone] option 5 then option 2 with any questions or concerns. For any scheduling concerns please call [phone] option 1 documented in this [facility] Work Phone: 1(352) 156-747206-26-2024 History of Present illness Narrative* Solomon Narayanan PA-C - 12/12/2023 1:00 PM EDT Images from the original note were not included. [facility] [place] Department of Neurological Surgery New Patient Visit [...] as well as had multiple interventions via [facility] including trial ablation which did provide short-term [...] Body mass index is 26.91 kg/m . systems reviewed and negative other than what [...] Disp: , Rfl: Allergies Allergen Reactions Keflet Hivarlen Physical Examination General: Well developed, awake/alert/oriented x3, no distress, alert and cooperative Skin: Warm and dry, no lesions, no rashes ENMT: Mucous membranes moist, no apparent injury, no lesions seen Head/Neck: Neck Supple, no apparent injury Respiratory/Thorax: Normal breath sounds with good chest expansion, thorax symmetric Cardiovascular: No pitting edema, no JVD Motor Strength: 4/5 left biceps, triceps, wrist, intelligence specialist Muscle Bulk: Decreased muscle bulk left bicep [...] as well as had multiple interventions via [facility] including trial ablation which did provide short-term [...] office or contact me directly. Sincerely, RICH Hernandez, PAFranC Associate Physician Biogeographer, Neurosurgery Clinical Apartment Community Assistant Manager [facility] [place] [address] [place] [address] documented in this encounterK[facility] Work Phone: 1(110) [phone] Instructions* Patient Instructions* Memo Cole MD - 11/02/2023 10:13 AM EDT Scans and labs in 1 year RTC 1 week after documented in this encounterHolzer [facility] [place]-17-[facility] History of Present illness Narrative* Memo Cole MD - 11/02/2023 9:45 AM EDT Images from the original note were not included. NAME: Jovani Melendez [facility] NO.: [id number] DATE OF SERVICE: November 02, 2023 [facility] Some elements in this clinic note that are critical to medical decision making have been carefully reviewed and included from a prior clinic note dated: November 03, 2022 (Curtis). Referring Provider: Griselda Hastings, DO Additional Clinicians involved in Jovani Melendez's care: Dr Kimberly Nichole ENT, Dr. 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 10/05/2021 - [place] Brain: [facility] There is T2 and T2 flair hyperintense [...] respiratory bronchiolitis. 01/30/2019 - Neck dissection at [facility] Base of tongue did note a [...] 2020: Doing well, still smokes, works at [employer]. Reviewed scans and there is no evidence [...] which included preparing to see the patient, [id number] patient care, completing clinical documentation, performing a medically appropriate examination, counseling and educating the patient/family/caregiver, ordering medications, tests, or p rocedures, independently interpreting results (not separately reported), communicating results to the patient/family/caregiver, and care coordination (not separately reported). Memo Cole MD, CPE Hematology and Oncology Services Provided at: [place], [place] Scribe Attestation: This note was scribed [...] and under my direction. CC: Griselda Hastings, DO [address] [place] [phone] [address] Harris [facility] ENT. Dr. Nichole ENT Dr. Ibarra IN surgery [facility]. documented in this encounterHolzer Medical Center – [place]05-13-2024 Evaluation note* Author Shilpi Lantigua [facility] Authored October 29, 2023 10:32 am Sooner if needed, the ER if concerns,The above note written by Shilpi Lantigua LPN acting as human recorder, note dictated by Dr. Griselda Hastings [facility] Work Phone: 1(522) 545-708405-10-2024 History of Present illness Narrative* Curtis Da Silva, JANEEN - 10/26/2023 9:45 AM EDT Radiology Service [...] 26, 2023 TIME: 9:30 AM * Devin Doyle RT(R) - 10/26/2023 9:45 AM EDT Radiology [...] PATIENT PRESENTS WITH AN IMPLANTABLE OR ATTACHED HAM DOCTOR: No RADIOLOGY DEPARTMENT: CT; Exam(s) Completed: Chest and Neck PERIPHERAL IV DATA: Site assessment: Clean,Dry and Intact, Site disposition Discontinued SIGNED BY: RT Craig(R) October 26, 2023 10:07 AM documented in this encounterHolzer Medical Center – [place]04-19-2024 History of Present illness Narrative* Ignacia Jack MD - 10/05/2023 9:30 AM EDT Patient ID: Jovani Melendez is a 62 y.o. male. Referring Physician: No referring provider defined for this encounter. Primary Care Provider: Griselda Hastings DO Subjective History of Present Ilness: 62 y.o. presents in neurosurgical consultation from [facility] for cervical stenosis.C/o neck pain and LUE pain, numbness and weakness down to hand for 2 years. SawNeurosurgeon at and has had 2 spinal taps with some improvement. Went to [facility] to be assessed for hydrocephal;us and was told he does not have hydrocephalus. He saw Dr. Lara at the [facility]. Also pain behind left eye. No [...] issues. 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 Ignacia Jack MD documented in this encounterK[facility] Work Phone: 1(530) 781-681204-19-2024 Instructions* Patient Instructions* Adriana Thomas RN - 10/05/2023 9:[address] Jack will present your case at [facility] next Sunday. Someone from the office will call you that day or about your plan. Please call us with any questions or concerns at [phone] opt. 5, opt. 2 For scheduling concerns please call [phone] option 1 documented in this encounterKettering [facility] Work Phone: 1(393) 172-332702-28-2024 Evaluation note* Author Curtis Covarrubias [facility] Authored August 15, 2023 5:19pm The above note written by Serafin Flood acting as human recorder, note dictated by Dr. Griselda Hastings . [facility] Work Phone: 1(771) 952-222402-28-2024 Evaluation note* Author Curtis Covarrubias [facility] Authored August 15, 2023 5:19pm The above note written by Serafin Flood acting as human recorder, note dictated by Dr. Griselda Hsatings . Author Shilpi Lantigua [facility] Authored October 29, 2023 10:32 am Sooner if needed, the ER if concerns,The above note written by Shilpi Lantigua LPN acting as human recorder, note dictated by Dr. Griselda Hastings [facility] Work Phone: 1(842) 335-523101-15-2024 Evaluation note* Encounter Date Diagnosis Assessment Notes Treatment Notes Treatment Clinical Notes Jun, Acute cough (ICD-10 - R05.1) In cruger covid, flu, strep and rsv test was negative. I did prescribe the above medication and encouraged pt to increase fluid intake, throat lozenges or gargle with mouth wash as needed. Pt is to also take OTC pain medication and fever reducers as needed. Jun, Chest congestion (ICD-10 - R09.89) In cruger covid, flu, strep and rsv test was [...] continue to follow with them as scheduled. [facility] Other 12-14-2023 Evaluation note* Encounter Date Diagnosis Assessment Notes Treatment Notes Treatment Clinical Notes May, PAD (peripheral artery disease) (ICD-10 - I73.9) Patient recently had angioplasty for occlusion of right iliac artery that was discovered by residential coordinator. He has been doing well since the [...] work before I provide him that consent. [facility] Other 12-13-2023 Evaluation note* Encounter Date Diagnosis [...] I will see him in 3 months. [facility] Other 11-28-2023 Evaluation note* Encounter Date Diagnosis [...] 3 months Apr, Lightheadedness (ICD-10 - R42) [facility] Other [id number] [facility]11-[facility]* Encounter Date Diagnosis Assessment Notes Treatment Notes Treatment Clinical Notes Apr, Right leg claudication (ICD-10 - I73.9) 16 Nov, 2023 PAD (peripheral artery disease) (ICD-10 - [...] questions were addressed and consent was obtained. [facility] Other 11-14-2023 Evaluation note* Encounter Date Diagnosis [...] M54.2) The patient is now following with [facility]. He states he has an upcoming cervical epidural scheduled. The patient remains out of work on halfway disability , he voices interest in returning to work soon. Apr, PAD (peripheral artery disease) (ICD-10 - I73.9) Arterial studies ordered by residential coordinator indicating peripheral artery disease. The patient does report lower extremity pain and heaviness and I recommend it would be beneficial to consult with a vascular specialist. The patient is in agreement, therefore a referral was initiated. A CTA has been ordered by neurologist , appointment pending [facility] scheduling. Apr, Hyperlipidemia (ICD-10 - E78.5) Blood [...] vocies understanding. We will continue to monitor. [facility] Other 10-26-2023 Evaluation note* Encounter Date Diagnosis Assessment Notes Treatment Notes Treatment Clinical Notes Mar, Claudication (ICD-10 - I73.9) [facility] Other 10-25-2023 Evaluation note* Encounter Date Diagnosis [...] 4 weeks Mar, Lightheadedness (ICD-10 - R42) [facility] Other 10-24-2023 Evaluation note* Encounter Date Diagnosis Assessment Notes Treatment Notes Treatment Clinical Notes Mar, Elevated blood pressure reading (ICD-10 - R03.0) [facility] Other 09-28-2023 Evaluation note* Encounter Date Diagnosis [...] infection. Feb, Burning sensation (ICD-10 - R20.8) [facility] Other 09-21-2023 Evaluation note* Encounter Date Diagnosis [...] index finger. We will continue to monitor. [facility] Other 07-13-2023 Hospital Discharge instructions Diet Plan/Instructions [...] * Discharge Physician: : Lima Joseph MD ([id number]) - Anesthesiology, Pain Management * Discharge Physician Phone: : [phone] [facility] [id number], [place] [address] Special Plan/Instructions for Discharge from 12/27/2022 10:26 AM: * Special Instructions : Spoke to patient Wound Care Instruction for Discharge from 12/27/2022 10:26 AM: * Special Instructions : Spoke to patient [employer] 06-20-2023 Evaluation note* Encounter Date Diagnosis Assessment [...] sent to the office to be completed. [facility] Other 05-12-2023 History of Present illness Narrative* [...] with PATIENT DISCHARGED TO: Ambulatory patient, left [place] department area. A Diagnostic radioactive procedure has taken place, with no further precautions necessary other than routine body substance precautions. More information regarding radiation safety can be found usingthis link: [email or web address] SIGNATURE: TABITHA Srinivasan) PATIENT NAME: Jovani Melendez DATE: October 27, 2022 TIME: 11:55 AM PAGER/CONTACT #: documented in this encounterHolzer Medical Center [facility] [place]04-07-2023 History of Present illness Narrative* TABITHA Kim) [...] IAC/CPA SIGNATURE: RT Julio(R) PATIENT NAME: Jovani Meelndez DATE: September 22, 2022 TIME: 2:39 PM [...] and recommendation. * Telephone Encounter - Selam Ugarte - 09/18/2022 12:20 PM EDT General Call Caller : Jovani Contact Reason for Call : Pt has follow up questions after most recent visit. Patient requesting return call ? Yes documented in this encounterHolzer Medical Center – [place]03-29-2023 Instructions* Patient Instructions* Kelly Perez PA-C - [...] No Does patient want to see a Registration Scheduling Specialist? No (yes to any of above refer [...] – [place]03-29-2023 History of Present illness Narrative* Kelly Perez PA-C - 09/13/2022 10:44 AM EDT This note was created using Int[employer] Medicalriter. Subjective Jovani Melendez is a 61 year [...] or pronator drift. Coordination: Romberg sign negative. Xxqmwh-Jsov-Qstyuq Test normal. Gait: Gait abnormal. Comments: Slightly [...] which included preparing to see the patient, tfwf-[id number] patient care, completing clinical documentation, obtaining and/or [...] her mid twenties. He will see the ANIMAL KILLER at Dr. Cadena's office today, and will see the [facility] 09/13/22. I do feel pt needs his FMLA extended until 12/16/22. I encouraged him to continue to follow with these doctors, and we will continue to monitor. 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 [facility] Other 01-11-2023 Evaluation note* Encounter Date Diagnosis Assessment Notes Treatment Notes Treatment Clinical Notes Jun, Other complicated headache syndrome (ICD-10 - G44.59) [facility] Other 12-09-2022 Evaluation note* Encounter Date Diagnosis [...] check on him again in 1 month. [facility] Other 10-30-2022 Hospital Discharge instructions Additional Instructions [...] are doing. [facility] Work Phone: 1(193) 556-965710-10-2022 Miscellaneous Notes* Telephone Encounter - Memo Cole MD - 03/27/2022 3:54 PM EDT Good with me * Telephone Encounter - Asya Reynolds RN - 03/27/2022 2:17 PM EDT Informed patient of your recommendations. He states that he is seeing neurology in [place] and they do not feel he needs [...] the weekend about an appointment with a [facility] neurosurgeon. He has not seen you since 10/2021. He states st that time you did not see the need for a neurosurgeon as his tumor wastoo small. Now he all of the sudden has an appointment with this [facility] neurosurgeon and is confused. Can you review and advise as to this appointment with the neurosurgeon. Asya Reynolds RN documented in this encounterHolzer Medical Center – [place]09-29-2022 Miscellaneous Notes* Telephone Encounter - Pamela NascimentoBAILEY.VOCATIONAL NURSE - 03/16/2022 2:51 PM EDT Time Frame: Next available Provider: Intra-axial neurosurgeon & Neuro-Oncology (same day) Referring: Memo Cole MD Please instruct patient to hand carry/ upload images prior to appt Dx: Low grade glioma Patient: Jovani Melendez Address: Jovani Melendez [id number] [place], [place] [id number] Per Triage: Jovani Melendez is a 61 year old male that requests evaluation of previously diagnosed possible low grade glioma. Patient expectations: Second opinion Tumor Specifics: Location: brain Previous Evaluations: MRI w/wo contrast (10/05/21): 10/05/2021 [place] [facility]: 1. There is T2 and T2 [...] (HCC) [C71.9 (ICD-10-CM)] Order Questions Question Answer [facility] Brain Tumor [facility] Epic access? Yes [...] see if this gives him some relief fflick Other 08-15-2022 Evaluation note* Encounter Date Diagnosis [...] - G93.9) Patient had another MRI at [facility]. We are awaiting for the [...] again next week. We are awaiting for [facility] to fax over the consult and MRI results. Jan, Neck pain (ICD-10 - M54.2) The patients neck pain is persistant but the headache has improved with a medication change. Discussed with Dr. Cadena his persistent neck pain, may need MRI of his neck and/or EMG. Due to his multiple other medications did hold off on any pain medications. fflick Other 07-11-2022 Evaluation note* Encounter Date Diagnosis [...] blood pressure was elevated upon check in. fflick Other 06-20-2022 Evaluation note* Encounter Date Diagnosis [...] rule out other causes of his symptoms. fflick Other 05-24-2022 Evaluation note* Encounter Date Diagnosis [...] will complete the necessary medical disability forms. fflick Other 05-17-2022 Evaluation note* Encounter Date Diagnosis [...] this medication. Will continue to follow up fflick Other 05-12-2022 History of Present illness Narrative* Memo Cole MD - 10/27/2021 5:05 PM EDT Images from the original note were not included. NAME: Jovani Melendez CLINIC NO.: [id number] DATE OF SERVICE: October 27, 2021 Some elements in this clinic note that are critical to medical decision making have been carefully reviewed and included from a prior clinic note dated: October 13, 2021 Referring Provider: Griselda Hastings, DO Additional Clinicians involved in Jovani Melendez's care: Dr Kimberly Nichole ENT, Dr. Ibarra CT surgery [facility] AMBULATORY TELEPHONE VISIT Jovani Melendez has consented [...] 1.8 mm of invasive disease (Stage I, [id number], HPV+ oropharyngeal SCC).resected T1 N1 base of [...] 01/30/19 He had a neck dissection at [facility] HPI: Updated Visit, October 27, 2021: [...] COMP METABOLIC PANEL Memo Cole MD, CPE [facility] [place], [place] CC: Griselda Hastings, DO [address] [address] [address] Harris [facility] ENT. Dr. Nichole ENT Dr. Ibarra [place] surgery [facility]. documented in [facility] – [...] him on to see Dr. Jonny Vigil. [facility] [employer] Other 05-04-2022 Miscellaneous Notes* Telephone Encounter - Haily Jovel [facility] - 10/19/2021 12:56 PM EDT Called [facility] Neuro Office spoke with Leslee. She states they have received patient records/referral and have patient scheduled to see Dr Narayan on 10/24. Haily Issa * Telephone Encounter - Asya Gram[facility] - 10/18/2021 10:34 AM EDT Records faxed. * Telephone Encounter - Haily Jovel [facility] - 10/13/2021 12:24 PM EDT Noelle: Information [...] note were not included. NAME: Jovani Melendez [facility] NO.: [id number] DATE OF SERVICE: October 13, 2021 Some elements in this clinic note that are critical to medical decision making have been carefully reviewed and included from a prior clinic note dated:October 14, 2020 Referring Provider: Griselda Hastings, DO Additional Clinicians involved in Jovani Melendez's care: Dr Kimberly Nichole ENT, Dr. Ibarra [place] surgery [facility] CC: Head and neck cancer ASSESSMENT: 60 [...] 1.8 mm of invasive disease (Stage I, [id number], HPV+ oropharyngeal SCC).resected T1 N1 base of [...] 01/30/19 He had a neck dissection at [facility] HPI: Updated Visit, October 13, 2021: [...] 2020: Doing well, still smokes, works at [employer]. Reviewed scans and there is no evidence [...] adenopathy is identified. 4. 10/05/2021 [place] [facility]: 1. There is T2 and T2 [...] and neck (HCC) Memo Cole MD, CPE [place], [place] CC: Griselda Hastings, DO [address] [address] [address] [facility] Nichole ENT Dr. Ibarra [place] surgery [facility]. documented in this encounterHolzer [facility] Center – [...] Hastings thinks pt may need referral to [facility] but wanted to let Dr Mcgregor review and decide next steps. Asya Kumar RN documented [facility] [place] History of Present illness Narrative* Marilyn Hernandez [...] 06, 2021 8:07 AM documented in this encounterHolzer [facility] Center – [...] to continue with monitoring diet and exercise. fflick Other 03-28-2022 Evaluation note* Encounter Date Diagnosis Assessment Notes Treatment Notes Treatment Clinical Notes Aug, Anxiety and depression (ICD-10 - F41.8) fflick Other 01-13-2022 Evaluation note* Encounter Date Diagnosis Assessment Notes Treatment Notes Treatment Clinical Notes Jun, Sinusitis (ICD-10 - J32.9) I did prescribe the above medications and work note provided. fflick Other 01-12-2022 Evaluation note* Encounter Date Diagnosis Assessment Notes Treatment Notes Treatment Clinical Notes Jun, Sinus pressure (ICD-10 - J34.89) Patient advised of negative results. Encouraged him to call if symtpoms persist or worsen, he verbalized understanding. fflick Other 11-02-2021 Evaluation note* Encounter Date Diagnosis Assessment Notes Treatment Notes Treatment Clinical Notes Apr, Sinus congestion (ICD-10 - R09.81) fflick Other 10-28-2021 Evaluation note* Encounter Date Diagnosis [...] Encouraged patient to continue with their efforts. fflick Other 12-01-2016 History general Narrative - Reported* [...] surgery 02/04 19 Hospitalization History see above fflick Other 12-01-2016 History general Narrative - Reported* [...] [place] 11/07/2021 Hospitalization History see above fflick Other 12-01-2016 History general Narrative - Reported* [...] [place] 11/07/2021 Hospitalization History see above fflick Other 12-01-2016 History general Narrative - Reported* [...] [place] 11/07/2021 Hospitalization History see above fflick Other 12-01-2016 History general Narrative - Reported* [...] [place] 08/2022 Hospitalization History see above fflick Other 12-01-2016 History general Narrative - Reported* [...] [place] 08/2022 Hospitalization History see above fflick Other 12-01-2016 History general Narrative - Reported* [...] iliac artery 04/2023 Hospitalization History see above fflick Other 05-19-2009 History of Present illness Narrative* [...] He saw Dr. Ba a neurologist in [facility]. * He describes his vision as seeing 1-/2 . He describes this does not seem quite to but finding a time lab between moving his eyes and having the visual change. [facility] Work Phone: chief complaint+Reason for visit Narrative* Chief Complaint 2 month 2 month f/u Reason for Visit Cervical spondylosis History of COVID-19 Nicotine dependence with current use SCC (squamous cell carcinoma) Nicotine dependence with current use Osteoarthritis cervical spine [facility] Work Phone: Clinical Notes [facility] Evaluation + Plan note [facility] Evaluation noteNo Assessments Information Available [facility]* Diagnosis Glioma of brain (HCC)- Primary Malignant neoplasm of brain, unspecified site Lung nodules Other nonspecific abnormal finding of lung field 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) Malignant neoplasm of head, face, and neck documented in this [facility]* Diagnosis 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 Malignant neoplasm of head, face, and neck Lung nodules Other nonspecific abnormal finding of lung field Malignant neoplasm of head, face and neck (HCC) Malignant neoplasm of head, face, and neck documented in this encounter [facility] noteNo InformationNort Trippeo Other Evaluation noteNo assessment information available [facility] Work Phone: Evaluation note* Diagnosis Onset Date Resolution Status Migraine acute [facility] Work Phone: Evaluation note* Diagnosis NPH (normal pressure hydrocephalus) (HCC)- Primary Idiopathic normal pressure hydrocephalus (INPH) documented in this [facility]* Diagnosis 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HCC)- Primary NPH (normal pressure hydrocephalus) (HCC) Idiopathic normal pressure hydrocephalus (INPH) documented [facility] this [facility]* Diagnosis 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HCC) NPH (normal pressure hydrocephalus) (HCC) Idiopathic normal pressure hydrocephalus (INPH) documented [facility]* Diagnosis Onset Date Resolution Status Anxiety and depression acute Essential hypertension acute Hyperlipidemia acute Osteoarthritis cervical spine acute PAD (peripheral artery disease) acute [facility] Work Phone: Evaluation note* Diagnosis 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 [facility] Work Phone: Evaluation note* Diagnosis 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 Griselda Hastings. 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) Malignant neoplasm of head, face, and neck documented in this [facility]* Diagnosis Malignant neoplasm of head, face and neck (HCC) Malignant neoplasm of head, face, and neck Lung nodules Other nonspecific abnormal finding of lung field 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) Malignant neoplasm of head, face, and neck Localized swelling, mass or lump of neck Swelling, mass, or lump in head and neck documented in this encounter [facility]* Diagnosis Cervical radiculopathy- Primary Brachial neuritis or radiculitis nos Cervical radiculopathy Brachial neuritis or radiculitis nos Senile osteoporosis Senile osteoporosis documented in this encounter [facility] Work Phone: [phone] note* Diagnosis Cervical radiculopathy- Primary Brachial neuritis or radiculitis nos Status post cervical spinal fusion Arthrodesis status Acute postoperative pain Other acute postoperative pain Muscle spasms of neck documented in this encounter [facility] Work Phone: [phone] note* Diagnosis Other nerve root and plexus disorders- Primary Cervical paraspinal muscle spasm Spasm of muscle Cervical stenosis of spinal canal Spinal stenosis in cervical region [facility]* Diagnosis Cervical radiculopathy- Primary Brachial neuritis or radiculitis nos Occipital neuralgia of left side Balance problem Abnormality of gait documented in this encounter [facility] Work Phone: [phone] note* 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 [facility] Work Phone: Evaluation note* 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 [facility] Work Phone: Evaluation note* Diagnosis Cervical radiculopathy- Primary Brachial neuritis or radiculitis nos Senile osteoporosis documented in this encounter [facility] Work Phone: Evaluation note* Diagnosis Cervical radiculopathy Brachial neuritis or radiculitis nos Senile osteoporosis Cervical radiculopathy Brachial neuritis or radiculitis nos Senile osteoporosis Cervical radiculopathy Brachial neuritis or radiculitis nos Senile osteoporosis documented in this encounter [facility] Work Phone: [phone] note* Diagnosis Cervical radiculopathy Brachial neuritis or radiculitis nos Senile osteoporosis Cervical radiculopathy Brachial neuritis or radiculitis nos Cervical radiculopathy Brachial neuritis or radiculitis nos Senile osteoporosis documented in this encounter [facility] Work Phone: [phone] note* Diagnosis Cervical radiculopathy Brachial neuritis or radiculitis nos Senile osteoporosis Cervical radiculopathy Brachial neuritis or radiculitis nos Cervical radiculopathy Brachial neuritis or radiculitis nos Senile osteoporosis documented in this encounter [facility] Work Phone: Evaluation note* Diagnosis Status post cervical spinal fusion- Primary Arthrodesis status documented in this encounter [facility] Work Phone: Evaluation note* Diagnosis Nerve root and plexus disorder, unspecified- Primary documented in this encounter [facility] HealthcareEvaluation note* Diagnosis Nerve root and plexus disorder, unspecified- Primary documented in this encounter [facility] HealthcareEvaluation note* Diagnosis Nerve root and plexus disorder, unspecified- Primary documented in this encounter [facility] HealthcareEvaluation note* Diagnosis Status post cervical spinal fusion- Primary Arthrodesis status documented in this encounter [facility] Work Phone: Evaluation note* Diagnosis 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 Malignant neoplasm of head, face, and neck [facility] Diagnosis 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) Malignant neoplasm of head, face, and neck documented in this encounter [facility]* Diagnosis Nerve root and plexus disorder, unspecified- Primary Acute pain of left shoulder documented in this encounter [facility] HealthcareEvaluation note* Diagnosis Melanocytic nevus of trunk- Primary Benign neoplasm of skin of trunk, except scrotum Seborrheic keratosis Inflamed seborrheic keratosis Actinic keratosis Capillary angioma Nevus, non-neoplastic History of SCC (squamous cell carcinoma) of skin Personal history of other malignant neoplasm of skin documented in this encounter [facility] HealthcareEvaluation note* Diagnosis Nerve root and plexus disorder, unspecified- Primary Acute pain of left shoulder documented in this encounter [facility] HealthcareHospital Discharge instructions Additional Instructions Obtain Elsy pot and perform nasal irrigations twice a day[facility] Work Phone: Hospital Discharge instructions Additional Instructions Please return to emergency department for any new or worrisome symptoms including any chest pain, shortness of breath, vomiting, fever. Take all antibiotics even if you start feeling better.[facility] Work Phone: Hospital Discharge instructions Additional Instructions Push fluids Zofran for nausea vomiting Follow-up with the GI specialist as discussed for possible colonoscopy Return here if any problems persist or worsen If you are able to collect a urine specimen take it to the lab.[facility] Work Phone: reason for referral (narrative)* Diagnostic Procedure Only (Routine) - Closed Specialty Diagnoses / Procedures Referred By Contac t Referred To Contact CT IMAGING Diagnoses Malignant neoplasm of head, face and neck (HCC) Lung nodules 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) Localized swelling, mass or lump of neck Procedures CT CHEST W IVCON CAT SCAN OF CHEST CONTRAST Memo Cole MD [address] [place] [address] [place] [address] [place] [id number] Referral ID Status Reason Start Date Expiration Date V isits Requested Visits Authorized [id number] Closed Auto-Generate d Referral 09/23/2021 11/22/2021 1 [...] OF NECK TISSUE Memo Cole MD [address] [place] [address] [place] [address] Ct Imaging [id number] Referral ID Status Reason Start Date Expiration Date V isits Requested Visits Authorized [id number] Closed Auto-Generate d Referral 09/23/2021 11/22/2021 1 1 [facility] (narrative)No reason for referral information availableOhiohealth [facility] Work Phone: Rernki for visit Narrative* Auth/Cert Specialty Diagnoses / Procedures Referred By Contac t Referred To Contact Diagnoses Cervical radiculopathy Senile osteoporosis Cervical radiculopathy [M54.12] Senile osteoporosis [M81.0] Procedures GA ARTHRD ANT INTERBODY DECOMPRESS CERVICAL BELW C2 GA ARTHRD ANT INTERBODY DECOMPRESS CERVICAL BELW C2 GA ARTHRD ANT INTERDY CERVCL BELW C2 EA ADDL NTRSPC GA ALLOGRAFT FOR SPINE SURGERY ONLY STRUCTURAL GA MICROSURG TQS REQ USE OPERATING MICROSCOPE Fusion Spine Anterior Cervical and Discectomy C5-6, C6-7 Camille Harris MD [address] [facility], [facility] [address] [place] [address] Phone: tel: fax: [facility] [place] [address] [place] [address] fax: Referral ID Status Reason Start Date Expiration Date Visits Re quested Visits Authorized [id number] 1 1 [facility] Work Phone: Reason for visit Narrative* Injection (Routine) - Closed Specialty Diagnoses / Procedures Referred By Roverto moraes Referred To Contact Neurology Diagnoses Acute pain of left shoulder Procedures GA OFFICE/OUTPATIENT [facility] HIGH MDM 60 MINUTES Elvi Cadena MD [address] [facility] [address] [place] [address] Phone: tel: fax: Elvi Cadena MD [address] [place] [address] Phone: tel: fax: Referral ID Status Reason Start Date Expiration Date V isits Requested Visits Authorized [id number] Closed Perform Procedure 11/12/2024 05/18/2025 1 1 [facility] Summary Purpose Family History No Family History [...] accident (CVA) Unknown mother Heart disease Unknown Relationship Condition Age at Onset Recorded Date/T yolie brother Hypertension Unknown sister Heart disease Unknown father Malignant neoplasm Unknown Cerebrovascular accident (CVA) Unknown mother Heart disease Unknown Unknown Advance Directives No Advanced Directives Records [...] Documents on File Type Date Recorded Patient Loop Tender Expl anation Living Will 10/05/2023 9:39 AM Documents on File Type Date Recorded Patient Loop Tender Expl anation Living Will 10/05/2023 9:39 AM Date Activated Date Inactivated Comments 04/09/2024 6:57 PM Question Answer Comments Plan of Care: Code Status Discussion Completed Decision Maker: Patient Date Activated Date Inactivated Comments 04/09/2024 11:50 AM 04/09/2024 6:57 PM Question Answer Comments Plan of Care: Code Status Discussion Completed Decision Maker: Patient Date Activated Date Inactivated Comments 04/09/2024 6:57 [...] Screening for prostate cancer July 032024 9:23am Chief Complaint Admit Date M54.12 Z98.1 June 24, 2024 1: 40pm 3 Month FU July 03, 2024 9 :23am I73.9 September 11, 2024 8:5 2am 1 year follow up; MARK's B/L legs at 9:00 am September 11, 2024 8:53am Reason for Visit Admit Date Hyperlipidemia July 03, 2024 9 :23am S/P cervical discectomy July 03 9:23am Screening for prostate cancer July 032024 9:23am Reason for Visit Admit Date Hyperlipidemia July 03, 2024 9 :23am S/P cervical discectomy July 03 9:23am Screening for prostate cancer July 032024 9:23am Current every day smoker September 11 8:53am PAD (peripheral artery disease) September 112024 8:53am Right leg claudication September 11, 2024 8:53am Chief Complaint Admit Date M54.12 Z98.1 June 24, 2024 1: 40pm 3 Month FU July 03, 2024 9 :23am I73.9 September 11, 2024 8:5 2am 1 year follow up; MARK's B/L legs at 9:00 am September 11, 2024 8:53am SOB, Weakness, body aches September 20 10:51am Chief Complaint Admit Date I73.9 September 11, 2024 8:5 2am 1 year follow up; MARK's B/L legs at 9:00 am September 11, 2024 8:53am SOB, Weakness, body aches September 20 10:51am abd pain October 06, 2024 2:0 2pm Reason for Visit Admit Date Current every day smoker September 11 8:53am PAD (peripheral artery disease) September 112024 8:53am Right leg claudication September 11, 2024 8:53am Chief Complaint Admit Date I73.9 September 11, 2024 8:5 2am 1 year follow up; MARK's B/L legs at 9:00 am September 11, 2024 8:53am SOB, Weakness, body aches September 20 10:51am abd pain October 06, 2024 2:0 2pm Diarrhea spec drop/ e78.5 z12.5 October 072024 1:31pm Chief Complaint Admit Date I73.9 September 11, 2024 8:5 2am 1 year follow up; MARK's B/L legs at 9:00 am September 11, 2024 8:53am SOB, Weakness, body aches September 20 10:51am abd pain October 06, 2024 2:0 2pm Diarrhea spec drop/ e78.5 z12.5 October 072024 1:31pm M54.12 Z98.1 October 10, 2024 10: 09am Diarrhea/follow up ER visit October 10, 2024 1:02pm Chief Complaint Admit Date I73.9 September 11, 2024 8:5 2am 1 year follow up; MARK's B/L legs at 9:00 am September 11, 2024 8:53am SOB, Weakness, body aches September 20 10:51am abd pain October 06, 2024 2:0 2pm Diarrhea spec drop/ e78.5 z12.5 October 072024 1:31pm M54.12 Z98.1 October 10, 2024 10: 09am Diarrhea/follow up ER visit October 10, 2024 1:02pm 6 months October 27, 2024 9:37a m Reason for Visit Admit Date Current every day smoker September 11 8:53am PAD (peripheral artery disease) September 112024 8:53am Right leg claudication September 11, 2024 8:53am Cardiac arrhythmia October 27, 2024 9:37a m Essential hypertension October 27, 2024 9: 37am Hyperlipidemia October 27, 2024 9:37a m Glioma of brain October 27, 2024 9:37a m PAD (peripheral artery disease) October 9:37am Chief Complaint Admit Date I73.9 September 11, 2024 8:5 2am 1 year follow up; MARK's B/L legs at 9:00 am September 11, 2024 8:53am SOB, Weakness, body aches September 20 10:51am abd pain October 06, 2024 2:0 2pm Diarrhea spec drop/ e78.5 z12.5 October 072024 1:31pm M54.12 Z98.1 October 10, 2024 10: 09am Diarrhea/follow up ER visit October 10, 2024 1:02pm 6 months October 27, 2024 9:37a m abdominal pain/early satiety/weight loss / diarrhea November 05, 2024 6:59am abdominal pain/early satiety/weight loss / diarrhea November 05, 2024 8:55am follow up EGD November 17, 2024 1:57p m Reason for Visit Admit Date Current every day smoker September 11 8:53am PAD (peripheral artery disease) September 112024 8:53am Right leg claudication September 11, 2024 8:53am Abdominal pain October 10, 2024 1:0 2pm Change in bowel habits October 10, 2024 1:02pm Diarrhea October 10, 2024 1:0 2pm Dysphagia October 10, 2024 1:0 2pm Early satiety October 10, 2024 1:0 2pm Unexplained weight loss October 10, 2024 1:02pm Cardiac arrhythmia October 27, 2024 9:37a m Essential hypertension October 27, 2024 9: 37am Hyperlipidemia October 27, 2024 9:37a m Glioma of brain October 27, 2024 9:37a m PAD (peripheral artery disease) October 9:37am Abdominal pain November 17, 2024 1:57p m Change in bowel habits November 17, 2024 1: 57pm Diarrhea November 17, 2024 1:57p m Dysphagia November 17, 2024 1:57p m Chief Complaint Admit Date I73.9 September 11, 2024 8:5 2am 1 year follow up; MARK's B/L legs at 9:00 am September 11, 2024 8:53am SOB, Weakness, body aches September 20 10:51am abd pain October 06, 2024 2:0 2pm Diarrhea spec drop/ e78.5 z12.5 October 072024 1:31pm M54.12 Z98.1 October 10, 2024 10: 09am Diarrhea/follow up ER visit October 10, 2024 1:02pm 6 months October 27, 2024 9:37a m abdominal pain/early satiety/weight loss / diarrhea November 05, 2024 6:59am abdominal pain/early satiety/weight loss / diarrhea November 05, 2024 8:55am follow up EGD November 17, 2024 1:57p m congestion November 19, 2024 2:26p m Reason for Visit Admit Date Current every day smoker September 11 8:53am PAD (peripheral artery disease) September 112024 8:53am Right leg claudication September 11, 2024 8:53am Abdominal pain October 10, 2024 1:0 2pm Change in bowel habits October 10, 2024 1:02pm Diarrhea October 10, 2024 1:0 2pm Dysphagia October 10, 2024 1:0 2pm Early satiety October 10, 2024 1:0 2pm Unexplained weight loss October 10, 2024 1:02pm Cardiac arrhythmia October 27, 2024 9:37a m [...] virus infecti on) November 19, 2024 2:26pm Chief Complaint Admit Date I73.9 September 11, 2024 8:5 2am 1 year follow up; MARK's B/L legs at 9:00 am September 11, 2024 8:53am SOB, Weakness, body aches September 20 10:51am abd pain October 06, 2024 2:0 2pm Diarrhea spec drop/ e78.5 z12.5 October 072024 1:31pm M54.12 Z98.1 October 10, 2024 10: 09am Diarrhea/follow up ER visit October 10, 2024 1:02pm 6 months October 27, 2024 9:37a m abdominal pain/early satiety/weight loss / diarrhea November 05, 2024 6:59am abdominal pain/early satiety/weight loss / diarrhea November 05, 2024 8:55am follow up EGD November 17, 2024 1:57p m congestion November 19, 2024 2:26p m B33.8 2024 2:12p m Chief Complaint Admit Date 6 months October [...] (gastroesophageal reflux disease) J kurtis 2024 3:14pm Assessments No Assessments Information Available Reason for Referral Specialty Diagnoses / Procedures Referred By Contac t Referred To Contact Neurosurgery Diagnoses Glioma of brain (HCC) Procedures CONSULT TO NEUROSURGERY OFFICE/OUTPATIENT [facility] MDM 60-74 MINUTES Memo Cole MD [address] [place] [address] [place] [address] Referral ID Status Reason Start Date Expiration Date Visits Requested Visits Authorized [id number] Authorized PCP Requested Referral 10/13/2021 10/13/2022 1 1 Specialty Diagnoses / Procedures Referred By Contac t Referred To Contact CT IMAGING Diagnoses Lung nodules Procedures CT CHEST W IVCON DIAGNOSTIC COMPUTED TOMOGRAPHY THORAX W/CONTRAST Memo Cole MD [address] [place] [address] [place] [address] Ct Imaging Referral ID Status Reason Start Date Expiration Date Visits Requested Visits Authorized [id number] Pending Review Auto-Generat ed Referral 10/30/2022 11/29/2022 1 1 Specialty Diagnoses / Procedures Referred By Contac t Referred To Contact CT IMAGING Diagnoses Malignant neoplasm of head, face and neck (HCC) Procedures CT NECK SOFT TISSUE W IVCON CT SOFT TISSUE NECK W/CONTRAST MATERIAL Memo Cole MD [address] [place] [address] [place] [address] Ct Imaging Referral ID Status Reason Start Date Expiration Date Visits Requested Visits Authorized [id number] Pending Review Auto-Generat ed Referral 10/30/2022 11/29/2022 1 1 Reason *FU 10/31 Evaluate and Treat Brainstem Lesion 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) Referral Organization [facility] urosurgery Referring Provider First Name Sheng Referring Provider Last Name Wyatt Referring Provider Specialty Neurosurger y Referred Organization [facility] Referred Provider Jonny Vigil Referred Address [address] [facility] [place] Referred Provider Specialty Neurological Surgery Referral Priority Routine General Notes Fore, Linnea M 022 02:09:54 PM >Received and fax referral today Reason consult and treat (p t is willing to see him in [place], if not then will see at [facility]) 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) Diagnosis 2 Cervical pain (neck) (M54.2) Diagnosis 3 Pressure in head (R5 1.9) Referral Organization [facility] Family Medicin e [place]que[place] Referring Provider First Name Griselda Referring Provider Last Name Darling Referring Provider Specialty Family Prac henny Referred Organization [facility] Referred Provider Elvi Cadena Referred Address [address] [place] [phone] Referral Priority Routine Specialty Diagnoses / Procedures Referred By Contac t Referred To Contact MR IMAGING Diagnoses 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HCC) Procedures MRI BRAIN WO/W IVCON MRI BRAIN BRAIN STEM W/O W/CONTRAST MATERIAL Kelly Perez PA-C [address] [place] [address] Mr Imaging Referral ID Status Reason Start Date Expiration Date Visits Requested Visits Authorized [id number] Authorized Auto-Generat ed Referral 09/20/2022 10/20/2023 1 1 Referral ID Status Reason Start Date Expiration Date V isits Requested Visits Authorized [id number] Closed Auto-Generate d Referral 09/20/2022 10/20/2023 1 1 Reason pt requesting n ot Dr. Verma, but can see other providers from that group evaluate and treat tinnitus and balance issues Diagnosis 1 Tinnitus of both ear s (H93.13) Diagnosis 2 Balance disorder (R2 6.89) Referral Organization [facility] Cardiology Referring Provider First Name Lilliam Referring Provider Last Name Kamla Referring Provider Specialty Cardiovascu lar Disease Referred Organization [facility] Referred Provider Manuela Ballesteros Referred Address ,[place], [place],[address] Referred Provider Specialty Ear, Nose an d Throat Referral Priority Routine General Notes Yessica Brown 12:40:36 PM >received today, pt has medicaid insurance, will send to Dr. Ballesteros, attachments made, waiting for notes to be locked Reason consult and treat Diagnosis 1 PAD (peripheral arnie ry disease) (I73.9) Referral Organization [facility] Family Medicin e [place]y Referring Provider First Name Griselda Referring Provider Last Name Darling Referring Provider Specialty Family Prac henny Referred Organization [facility] Vascular Surge ry Referred Provider Filipe Hess Referred Address [address] [place] [address],[place] [address],[place], [place],[address] Referred Provider Specialty Vascular Abdirahman yvon Referral Priority Routine General Notes Nick Alvaradon M 023 11:58:24 AM >Received today and sent P2P Specialty Diagnoses / Procedures Referred By Roverto moraes Referred To Contact CT IMAGING Diagnoses 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) Procedures CT CHEST W IVCON DIAGNOSTIC COMPUTED TOMOGRAPHY THORAX W/CONTRAST Memo Cole MD [address] [place] [address] [place] [address] [place] [address] Referral ID Status Reason Start Date Expiration Date Visits Requested Visits Authorized [id number] Authorized Auto-Generat ed Referral 11/01/2024 12/01/2024 1 1 Specialty Diagnoses / Procedures Referred By Contac t Referred To Contact CT IMAGING Diagnoses 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) Procedures CT NECK SOFT TISSUE W IVCON CT SOFT TISSUE NECK W/CONTRAST MATERIAL Memo Cole MD [address] [place] [address] [address] [place], [facility] [address] [address] [place] [address] Referral ID Status Reason Start Date Expiration Date Visits Requested Visits Authorized [id number] Authorized Auto-Generat ed Referral 11/01/2024 12/01/2024 1 1 Referral ID Status Reason Start Date Expiration Date V isits Requested Visits Authorized [id number] Closed Auto-Generate d Referral 10/26/2023 06/17/2024 1 1 Referral ID Status Reason Start Date Expiration Date V isits Requested Visits Authorized [id number] Closed Auto-Generate d Referral 10/26/2023 06/17/2024 1 1 Specialty Diagnoses / Procedures Referred By Contac t Referred To Contact CT IMAGING Diagnoses Lung nodules Procedures CT CHEST W IVCON DIAGNOSTIC COMPUTED TOMOGRAPHY THORAX W/CONTRAST Memo Cole MD [address] [place] [address] [place] [address] Ct Imaging [facility] Referral ID Status Reason Start Date Expiration Date V isits Requested Visits Authorized [id number] Closed Auto-Generate d Referral 10/30/2022 11/29/2022 1 1 Specialty Diagnoses / Procedures Referred By Contac t Referred To Contact CT IMAGING Diagnoses Malignant neoplasm of head, face and neck (HCC) Procedures CT NECK SOFT TISSUE W IVCON CT SOFT TISSUE NECK W/CONTRAST MATERIAL Memo Cole MD [address] [place], [place] [address] [address] [place] [address] Referral ID Status Reason Start Date Expiration Date V isits Requested Visits Authorized [id number] Closed Auto-Generate d Referral 10/30/2022 11/29/2022 1 1 Specialty Diagnoses / Procedures Referred By Contac t Referred To Contact Radiology 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 [place] [address] [place] [address] Referral ID Status Reason Start Date Expiration Date Visits Requested Visits Authorized [id number] Pending Review Perform Procedure 12/13/2023 12/12/2024 1 1 Specialty Diagnoses / Procedures Referred By Contac t Referred To Contact Radiology 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 tumor perfusion protocol w and wo IV contrast Shimon Heaton PA-C [address] [place] [address] Referral ID Status Reason Start Date Expiration Date Visits Requested Visits Authorized [id number] Authorized Perform Procedure 10/24/2023 10/23/2024 1 1 Specialty Diagnoses / Procedures Referred By Contac t Referred To Contact Radiology Diagnoses Cervical radiculopathy Procedures XR cervical spine complete 6+ views Camille Harris MD [address] [facility], [address] [address] Referral ID Status Reason Start Date Expiration Date Visits Requested Visits Authorized [id number] Authorized Perform Procedure 01/03/2024 01/02/2025 1 1 Specialty Diagnoses / Procedures Referred By Contac t Referred To Contact Radiology Diagnoses Senile osteoporosis Procedures XR DEXA bone density axial skeleton w VFA Camille Harris MD [address] [facility], [address] [address] Referral ID Status Reason Start Date Expiration Date Visits Requested Visits Authorized [id number] Pending Review Perform Procedure 01/03/2024 01/02/2025 1 1 Specialty Diagnoses / Procedures Referred By Contac t Referred To Contact Diagnoses Cervical radiculopathy Senile osteoporosis Procedures ECG 12 lead Camille Harris MD [address] [facility], [address] [address] Referral ID Status Reason Start Date Expiration Date V isits Requested Visits Authorized [id number] Authorized 01/09/2024 01/08/2025 1 1 Specialty Diagnoses / Procedures Referred By Roverto moraes Referred To Contact Radiology Diagnoses Cervical radiculopathy Procedures XR DEXA bone density Camille Harris MD [address] [facility], [address] [place] [address] Referral ID Status Reason Start Date Expiration Date Visits Requested Visits Authorized [id number] Authorized Perform Procedure 01/08/2024 01/07/2025 1 1 [...] section and content) DATE CREATED AUTHOR 08/01/2019 [facility] DATE CREATED AUTHOR AUTHOR'S ORGANIZ ATION 11/05/2021 [employer] DATE CREATED AUTHOR AUTHOR'S ORGANIZ ATION 01/19/2022 [facility] dical Specialist DATE CREATED AUTHOR AUTHOR'S ORGANIZ ATION 10/02/2022 [facility] DATE CREATED AUTHOR AUTHOR'S ORGANIZ ATION 12/25/2022 [facility] DATE CREATED AUTHOR AUTHOR'S ORGANIZ ATION 08/03/2023 [facility] DATE CREATED AUTHOR AUTHOR'S ORGANIZ ATION 02/13/2024 [facility] DATE CREATED AUTHOR AUTHOR'S ORGANIZ ATION 09/28/2024 [facility] DATE CREATED AUTHOR AUTHOR'S ORGANIZ ATION 10/27/2024 [facility] DATE CREATED AUTHOR AUTHOR'S ORGANIZ ATION 11/13/2024 [facility] DATE CREATED AUTHOR AUTHOR'S ORGANIZ ATION 12/29/2024 [facility] DATE CREATED AUTHOR AUTHOR'S ORGANIZ ATION 01/01/[address] [facility] DATE CREATED AUTHOR AUTHOR'S ORGANIZ ATION 01/03/2025 [facility] DATE CREATED AUTHOR AUTHOR'S SUDEEP DIXON 02/06/2025 [facility] dical Specialists EPIC Source Comments (unrecognize d [...] CT Procedures EST PATIENT Memo Cole MD [address] [place] [address] [place] [address] Memo Cole MD [address] [place] [address] [place] [address] Referral ID Status Reason Start Date Expiration Date Visits Re quested Visits Authorized [id number] Closed 10/13/2021 06/17/2022 1 1 Reason Comments Referral Information Neurosurgery Reason Comments Established Patient Specialty Diagnoses / Procedures Referred By Contac t Referred To Contact Hematology/Oncology / HEMATOLOGY/ONCOLOGY Diagnoses 2 week phone follow up [phone] Procedures PHYS/QHP TELEPHONE EVALUATION 5-10 MIN PROVIDER SPECIALTY PHONE CALL Memo Cole MD [address] [place] [address] [place] [address] Memo Cole MD [address] [place] [address] [place] [address] Referral ID Status Reason Start Date Expiration Date Visits Re quested Visits Authorized [id number] Closed 10/27/2021 06/17/2022 1 1 Reason Comments Triage Internal Referral--o ld Reason Comments Appointment Reason Comments New Patient Specialty Diagnoses / Procedures Referred By Contac t Referred To Contact Neurology / BRAIN TUMOR Diagnoses Hydrocephalus (HCC) Hydrocephalus Procedures OFFICE/OUTPATIENT NEW MODERATE MDM 45-59 MINUTES NEW SURGICAL Elvi Cadena MD [address] [address] Kelly Perez, PADeanne [address] [place] [address] Referral ID Status Reason Start Date Expiration Date Visits Re quested Visits Authorized [id number] Closed 09/13/2022 06/17/2023 1 1 Reason Comments Patient Question Reason Comments Radiology MRI Specialty Diagnoses / Procedures Referred By Contac t Referred To Contact MR IMAGING Diagnoses 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HCC) Procedures MRI BRAIN WO/W IVCON MRI BRAIN BRAIN STEM W/O W/CONTRAST MATERIAL Kelly Perez PA-C [address] [place] [address] Mr Imaging Referral ID Status Reason Start Date Expiration Date V isits Requested Visits Authorized [id number] Closed Auto-Generate d Referral 09/20/2022 10/20/2023 1 [...] NECK W/CONTRAST MATERIAL Memo Cole MD [address] [place] [address] [place] [address] Ct Imaging [facility] Referral ID Status Reason Start Date Expiration Date V isits Requested Visits Authorized [id number] Closed Auto-Generate d Referral 10/26/2023 06/17/2024 1 1 Specialty Diagnoses / Procedures Referred By Contac t Referred To Contact CT IMAGING Diagnoses Lung nodules Procedures CT CHEST W IVCON DIAGNOSTIC COMPUTED TOMOGRAPHY THORAX W/CONTRAST Memo Cole MD [address] [place] [address] Ct Imaging [facility] Referral ID Status Reason Start Date Expiration Date V isits Requested Visits Authorized [id number] Closed Auto-Generate d Referral 10/30/2022 11/29/2022 1 [...] OF NECK TISSUE Memo Cole MD [address] [place] [address] [place] [address] [place] [address] Referral ID Status Reason Start Date Expiration Date V isits Requested Visits Authorized [id number] Closed Auto-Generate d Referral 09/23/2021 11/22/2021 1 1 Reason Comments Neck Pain Tingling Numbness Specialty Diagnoses / Procedures Referred By Contac t Referred To Contact Radiology 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 tumor perfusion protocol w and wo IV contrast Shimon Heaton, PA-C [address] [place] [address] Referral ID Status Reason Start Date Expiration Date Visits Requested Visits Authorized [id number] Authorized Perform Procedure 10/24/2023 10/23/2024 1 1 Reason Comments Neck Pain Specialty Diagnoses / Procedures Referred By Contac t Referred To Contact Diagnoses Cervical radiculopathy Senile osteoporosis Procedures ECG 12 lead Camille Harris MD [address] [facility], [address] [address] Referral ID Status Reason Start Date Expiration Date V isits Requested Visits Authorized [id number] Authorized 01/09/2024 01/08/2025 1 1 Specialty Diagnoses / Procedures Referred By Contac t Referred To Contact Radiology Diagnoses Cervical radiculopathy Procedures XR cervical spine complete 6+ views Camille Harris MD [address] [facility], [address] [address] Referral ID Status Reason Start Date Expiration Date Visits Requested Visits Authorized [id number] Authorized Perform Procedure 01/03/2024 01/02/2025 1 1 Specialty Diagnoses / Procedures Referred By Contac t Referred To Contact Radiology Diagnoses Cervical radiculopathy Procedures XR DEXA bone density Camille Harris MD [address] [facility], [address] [address] Referral ID Status Reason Start Date Expiration Date Visits Requested Visits Authorized [id number] Authorized Perform Procedure 01/08/2024 01/07/2025 1 1 Reason Comments Post-op Spine Surgery Pain in left shoul caron. Reason Comments Post-op Spine Surgery 3 month FU, should er pain. 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) Procedures CT CHEST W IVCON DIAGNOSTIC COMPUTED TOMOGRAPHY THORAX W/CONTRAST Memo Cole MD [address] [place] [address] [place] [address] Phone: tel: fax: [place] [address] Referral ID Status Reason Start Date Expiration Date V isits Requested Visits Authorized [id number] Closed Auto-Generate d Referral 11/01/2024 12/01/2024 1 1 Reason Comments Skin Check Care Teams (unrecognized sec tion and content) Landscape Architecture Professor Relationship Specialty Start Date End Date Griselda Hastings [address] [place] [phone] PCP - General Family Practice 11/20/18 Griselda Hastings [address] [place], [place] [phone] Referring Family Practice 11/20/18 Landscape Architecture Professor Relationship Specialty Start Date End Date Griselda Hastings [address] [place] [phone] PCP - General Family Practice 11/20/18 Griselda Hastings [address] [place] [phone] Referring Family Practice 11/20/18 Landscape Architecture Professor Relationship Specialty Start Date End Date Griselda Hastings [address] [place] [phone] PCP - General Family Practice 11/20/18 Griselda Hastings [address] [place] [phone] Referring Family Practice 11/20/18 Landscape Architecture Professor Relationship Specialty Start Date End Date Griselda Hastings [address] [place] [phone] PCP - General Family Practice 11/20/18 Griselda Hastings [address] [place] [address], [place] [address] Referring Family Practice 11/20/18 Landscape Architecture Professor Relationship Specialty Start Date End Date Griselda Hastings [address] [place] [address], [facility] [phone] PCP - General Family Medicine 11/20/[address], [facility] [phone] Referring Family Medicine 11/20/18 Landscape Architecture Professor Relationship Specialty Start Date End Date Griselda Hastings [address] [place] [address], [facility] [phone] PCP - General Family Medicine 11/20/18 Griselda Hastings [address] [place] [address], [facility] [address] [phone] Referring Family Medicine 11/20/18 Team Status: Inactive Member Role Status Poornima Hastings , DO Primary Care Provider Active Daniel Gaytan APRN Emergency Provider Active Team Status: Active Member Role Status Poornima Hastings DO Primary Care Provider Active Elvi Cadena MD Attending Provider Active Team Status: Active Member Role Status Poornima Hastings , DO Primary Care Provider Active Team Status: Inactive Member Role Status [facility] Griselda Hastings , DO Primary Care Provider Active Loi Wong Jr, MD Emergency Provider Active Team Status: Active Member Role Status Poornima Hastings DO Primary Care Provider Active Nikole Mota APRN ANIMAL KILLER-C Attending Provider A ctive Team Status: Inactive Member Role Status Poornima Hastings DO Primary Care Provider Active Elvi Cadena MD Attending Provider Active Team Status: Inactive Member Role Status Poornima Hastings DO Primary Care Provider Active Nikole Mota APRN ANIMAL KILLER-C Attending Provider A ctive Landscape Architecture Professor Relationship Specialty Start Date End Date Griselda Hastings [address] [place] [address], [place] [address] PCP - General Family Medicine 11/20/18 Griselda Hastings [address] [place] [address], [place] [address] Referring Family Medicine 11/20/18 Elvi Cadena MD [address] [place] [address], [place] [address] Referring Neurology 08/18/22 Landscape Architecture Professor Relationship Specialty Start Date End Date Griselda Hastings [address] [place] [address], [place] [phone] PCP - General Family Medicine 11/20/18 Griselda Hastings [address] [place] [address], [place] [address] Referring Family Medicine 11/20/18 Elvi Cadena MD [address] [place] [address], [place] [address] Referring Neurology 08/18/22 Landscape Architecture Professor Relationship Specialty Start Date End Date Griselda Hastings [address] [place] [address], [place] [address] PCP - General Family Medicine 11/20/[address] [place] [address] Referring Family Medicine 11/20/18 Elvi Cadena MD [address] [place] [address], [place] [address] Referring Neurology 08/18/22 Team Status: Inactive Member Role Status Dates Griselda Hastings DO Primary Care Provider, Attending Provi caron Active Team Status: Inactive Member Role Status Dates Griselda Hastings , Primary Care Provider Active Lima Joseph MD Attending Provider Active Team Status: Inactive Member Role Status Dates Griselda Hastings DO Primary Care Provider Active Rohit Agrawal , DO Emergency Provider Active Team Status: Inactive Member Role Status Dates Griselda Hastings DO Primary Care Provider Active Lilliam Cason MD Attending Provider Active Team Status: Inactive Member Role Status Dates Griselda Hastings , Primary Care Provider Active Ruddy Harvey MD Attending Provider Active Landscape Architecture Professor Relationship Specialty Start Date End Date Griselda Hastings DO [address] [place] [address] PCP - General Family Medicine 02/13/23 Landscape Architecture Professor Relationship Specialty Start Date End Date Griselda Hastings DO [address] [place] [phone] PCP - General Family Medicine 02/13/23 Team Status: Inactive Member Role Status Dates Griselda Hastings DO Primary Care Provider Active Sta rt: May 04, 2023 End: May 04, 2023 Nikole Mota APRN ANIMAL KILLER-C Attending Provider Active Start: April End: May [...] Griselda Hastings DO Attending Provider Active Start: May [...] September 05, 2023 End: September 05, 2023 Landscape Architecture Professor Relationship Specialty Start Date End Date Griselda Hastings DO PCP - General 01/03/19 Landscape Architecture Professor Relationship Specialty Start Date End Date Griselda Hastings DO [address] [facility] [address] [place] [address] PCP - General 01/03/19 [place] [address] [place] [address] Consulting Physician Hematology and Oncology 10/05/23 Team [...] October 29, 2023 End: October 29, 2023 Landscape Architecture Professor Relationship Specialty Start Date End Date Griselda Hastings [address] [place] [phone] PCP - General Family Medicine 11/20/18 Griselda Hastings [address] [place] [phone] Referring Family Medicine 11/20/18 Elvi Cadena MD 5319 [facility] [address] [address] Referring Neurology 08/18/22 Team Status: Active Member Role Status Dates Lilliam Cason MD Admitting Clerk Active Griselda Hastings DO Primary Care Provider Active Team Status: Inactive Member Role Status Poornima Hastings DO Primary Care Provide r, Attending Provider Active Start: December 03, 2023 End: December 03, 2023 Team Status: Inactive Member Role Status Poornima Hastings DO Primary Care Provide r, Attending Provider Active Start: January 31, 2024 End: January 31, 2024 Landscape Architecture Professor Relationship Specialty Start Date End Date Griselda Hastings [address] [place] [phone] PCP - General Family Medicine 11/20/18 Griselda Hastings [address] [place] [phone] Referring Family Medicine 11/20/18 Elvi Cadena MD 5319 [facility] [address] [place] [address] Referring Neurology 08/18/22 Landscape Architecture Professor Relationship Specialty Start Date End Date Griselda Hastings [address] [place], [place] [phone] PCP - General Family Medicine 11/20/18 Griselda Hastings [address] [place], [place] [phone] Referring Family Medicine 11/20/18 Elvi Cadena MD 5319 [facility] [address] [place] [address] Referring Neurology 08/18/22 Landscape Architecture Professor Relationship Specialty Start Date End Date Griselda Hastings [address] [place] [phone] PCP - General Family Medicine 11/20/18 Griselda Hastings [address] [place] [phone] Referring Family Medicine 11/20/18 Landscape Architecture Professor Relationship Specialty Start Date End Date Griselda Hastings DO [address] [place] [address] PCP - General 01/03/19 [place] [address] [place] [address] Consulting Physician Hematology and Oncology 10/05/23 Solomon Narayanan PA-C [address] [facility], [address] [address] Physician Biogeographer Neurosurgery 12/12/23 Team Status: Inactive Member Role Status Dates Griselda Hastings DO Primary Care Provide r, Attending Provider Active Start: April 01, 2024 End: April 01, 2024 Landscape Architecture Professor Relationship Specialty Start Date End Date Griselda Hastings DO [address] [place] [address] PCP - General 01/03/19 [place] [address] [place] [address] Consulting Physician Hematology and Oncology 10/05/23 Solomon Narayanan PA-C [address] [facility], [address] [address] Physician Biogeographer Neurosurgery 12/12/23 Landscape Architecture Professor Relationship Specialty Start Date End Date Griselda Hastings DO [address] [place] [address] PCP - General 01/03/19 [place] [address] [place] [address] Consulting Physician Hematology and Oncology 10/05/23 Solomon Narayanan PA-C [address] [place] [address] Physician Biogeographer Neurosurgery 12/12/23 Team Status: Inactive Member Role Status Dates Griselda Hastings DO Primary Care Provider Active Sta rt: April 28, 2024 End: April 28, 2024 Lilliam Cason MD Attending Provider Active Sta rt: April 28, 2024 End: April 28, 2024 Landscape Architecture Professor Relationship Specialty Start Date End Date Griselda Hastings DO [address] [place] [address] PCP - General Family Medicine 02/13/23 Landscape Architecture Professor Relationship Specialty Start Date End Date Griselda Hastings DO [address] [place] [address] PCP - General Family Medicine 02/13/23 Landscape Architecture Professor Relationship Specialty Start Date End Date Griselda Hastings DO [address] [place] [address] PCP - General 01/03/19 [place] [address] [place] [address] Consulting Physician Hematology and Oncology 10/05/23 Solomon Narayanan PA-C [address] [facility], [address] [address] Physician Biogeographer Neurosurgery 12/12/23 Landscape Architecture Professor Relationship Specialty Start Date End Date Griselda Hastings DO [address] [place] [address] PCP - General 01/03/19 [place] [address] [place] [address] Consulting Physician Hematology and Oncology 10/05/23 Solomon Narayanan PA-C [address] [facility], [address] [address] Physician Biogeographer Neurosurgery 12/12/23 Landscape Architecture Professor Relationship Specialty Start Date End Date Griselda Hastings DO [address] [place] [address] PCP - General 01/03/19 [place] [address] [place] [address] Consulting Physician Hematology and Oncology 10/05/23 Solomon Narayanan PA-C [address] [facility], [address] [address] Physician Biogeographer Neurosurgery 12/12/23 Landscape Architecture Professor Relationship Specialty Start Date End Date Griselda Hastings DO [address] [place] [address] PCP - General 01/03/19 [place] [address] [place] [address] Consulting Physician Hematology and Oncology 10/05/23 Solomon Narayanan PA-C [address] [facility], [address] [address] Physician Biogeographer Neurosurgery 12/12/23 Landscape Architecture Professor Relationship Specialty Start Date End Date Griselda Hastings DO [address] [place] [address] PCP - General 01/03/19 [place] [address] [place] [address] Consulting Physician Hematology and Oncology 10/05/23 Solomon Narayanan PA-C [address] [facility], [address] [address] Physician Biogeographer Neurosurgery 12/12/23 Landscape Architecture Professor Relationship Specialty Start Date End Date Griselda Hastings DO [address] [place] [address] PCP - General 01/03/19 [place] [address] [place] [address] Consulting Physician Hematology and Oncology 10/05/23 Solomon Narayanan PA-C [address] [facility], [address] [address] Physician Biogeographer Neurosurgery 12/12/23 Team Status: Inactive Member Role Status Dates Griselda Hastings DO Primary Care Provider Active Sta rt: June 24, 2024 End: June 24, 2024 Solomon Narayanan PA-C Attending Provider Active St art: June 24, 2024 End: June 24, 2024 Landscape Architecture Professor Relationship Specialty Start Date End Date Griselda Hastings DO [address] [place] [address] PCP - General 01/03/19 [place] [address] [place] [address] Consulting Physician Hematology and Oncology 10/05/23 Solomon Narayanan PA-C [address] [place] [phone] Physician Biogeographer Neurosurgery 12/12/23 Landscape Architecture Professor Relationship Specialty Start Date End Date Griselda Hastings DO [address] [place] [address] PCP - General Family Medicine 02/13/23 Team Status: Inactive Member Role Status Dates Griselda Hastings DO Primary Care Jung r, Attending Provider Active Start: July 03, 2024 End: July 03, 2024 Landscape Architecture Professor Relationship Specialty Start Date End Date Griselda Hastings DO [address] [place] [address] PCP - General Family Medicine 02/13/23 Landscape Architecture Professor Relationship Specialty Start Date End Date Griselda Hastings DO [address] [place] [address] PCP - General Family Medicine 02/13/23 Team Status: Active Member Role Status Dates Griselda Hastings DO Primary Care Provider Active Sta rt: September 11, 2024 Ruddy Harvey MD Attending Provider Active Start: September 11, 2024 Team Status: Inactive Member Role Status Dates Griselda Hastings DO Primary Care Provider Active Sta rt: September 11, 2024 End: September 11, 2024 Keysha Guy NP-C Attending Provider Active Start: September 11, 2024 End: September 11, 2024 Landscape Architecture Professor Relationship Specialty Start Date End Date Griselda Hastings DO [address] [place] [address] PCP - General Family Medicine 02/13/23 Team Status: Inactive Member Role Status Dates Griselda Hastings DO Primary Care Provider Active Sta rt: September 11, 2024 End: September 11, 2024 Ruddy Harvey MD Attending Provider Active Start: September 11, 2024 End: September 11, 2024 Team Status: Inactive Member Role Status Dates Griselda Hastings DO Primary Care Provider Active Sta rt: September 20, 2024 End: September 20, 2024 Daisy Paul MD Emergency Provider Active Start: September 20, 2024 End: September 20, 2024 Landscape Architecture Professor Relationship Specialty Start Date End Date Griselda Hastings DO PCP - General Family Medicine 02/13/23 Team Status: Inactive Member Role Status Poornima Hastings DO Primary Care Provider Active Sta rt: October 06, 2024 End: October 06, 2024 Manisha Negron APRN Emergency Provider Active Start: October 06, 2024 End: October 06, 2024 Team Status: Inactive Member Role Status Dates Griselda Hastings DO Primary Care Provide r, Other Provider Active Start: October 07, 2024 End: October 07, 2024 Manisha Negron APRN Attending Provider Active Start: October 07, 2024 End: October 07, 2024 Team Status: Active Member Role Status Dates Griselda Hastings DO Primary Care Provider Active Sta rt: October 10, 2024 Solomon Narayanan PA-C Attending Provider Active St art: October 10, 2024 Team Status: Inactive Member Role Status Dates Griselda Hastings DO Primary Care Provider Active Sta rt: October 10, 2024 End: October 10, 2024 Solomon Montez APRN Attending Provider Active Start: October 10, 2024 End: October 10, 2024 Team Status: Inactive Member Role Status Dates Griselda Hastings DO Primary Care Provider Active Sta rt: October 10, 2024 End: October 10, 2024 Solomon Narayanan PA-C Attending Provider Active St art: October 10, 2024 End: October 10, 2024 Landscape Architecture Professor Relationship Specialty Start Date End Date Griselda Hastings DO [address] [place] [address] PCP - General 01/03/19 [place] [address] [place] [address] Consulting Physician Hematology and Oncology 10/05/23 Solomon Narayanan PA-C [address] [place] [address] Physician Biogeographer Neurosurgery 12/12/23 Landscape Architecture Professor Relationship Specialty Start Date End Date Griselda Hastings DO [address] [place] [address] PCP - General 01/03/19 [place] [address] [place] [address] Consulting Physician Hematology and Oncology 10/05/23 Solomon Narayanan PA-C [address] [place] [address] Physician Biogeographer Neurosurgery 12/12/23 Team Status: Inactive Member Role Status Dates Griselda Hastings DO Primary Care Provider Active Sta rt: October 27, 2024 End: October 27, 2024 Lilliam Cason MD Attending Provider Active Sta rt: October 27, 2024 End: October 27, 2024 Landscape Architecture Professor Relationship Specialty Start Date End Date Griselda Hastings [address] [place] [phone] PCP - General Family Medicine 11/20/18 Griselda Hastings [address] [place] [phone] Referring Family Medicine 11/20/18 Elvi Cadena MD 5319 [facility] [address] [place] [address], [place] [address] Referring Neurology 08/18/22 Landscape Architecture Professor Relationship Specialty Start Date End Date Griselda Hastings [address] [place] [phone] PCP - General Family Medicine 11/20/18 Griselda Hastings [address] [place] [phone] Referring Family Medicine 11/20/18 Elvi Cadena MD 5319 [facility] [address] [place] [address] Referring Neurology 08/18/22 Landscape Architecture Professor Relationship Specialty Start Date End Date Griselda Hastings DO PCP - General Family Medicine 02/13/23 Team Status: Active Member Role Status Dates Griselda Hastings DO Primary Care Provider Active Sta rt: November 03, 2024 KRALO KellyC Attending Provider Active Start: November 03, 2024 Team Status: Inactive Member Role Status Dates Griselda Hastings DO Primary Care Provider Active Sta rt: November 05, 2024 End: November 05, 2024 Nathanael Aarngo MD Attending Provider Active Start: November 05, 2024 End: November 05, 2024 Team Status: Active Member Role Status Dates Griselda Hastings DO Primary Care Provider Active Sta rt: November 05, 2024 Nathanael Arango MD Attending Provider, Other Provider Act celeste Start: November 05, 2024 Team Status: Inactive Member Role Status Dates Griselda Hastings DO Primary Care Provider Active Sta rt: November 17, 2024 End: November 17, 2024 Solomon Montez APRN Attending Provider Active Start: November 17, 2024 End: November 17, 2024 Team Status: Inactive Member Role Status Dates Griselda Hastings DO Primary Care Provide r, Attending Provider Active Start: November 19, 2024 End: November 19, 2024 Landscape Architecture Professor Relationship Specialty Start Date End Date Griselda Hastings DO PCP - [facility] 02/13/23 Team Status: Inactive Member Role Status Dates Griselda Hastings DO Primary Care Provide r, Attending Provider Active Start: 2024 End: 2024 Landscape Architecture Professor Relationship Specialty Start Date End Date Griselda Hastings DO PCP - [facility] 02/13/23 Team Status: Active Member Role Status Dates Griselda Hastings DO Primary Care Provider Active Sta rt: November 05, 2024 Nathanael Arango MD Attending Provider Active Start: November 05, 2024 Nathanael Arango MD Other Provider Active Start: November 05, 2024 Team Status: Inactive Member Role Status Dates Griselda Hastings DO Primary Care Provider Active Sta rt: November 19, 2024 End: November 19, 2024 Griselda Hastings DO Attending Provider Active Start: November 19, 2024 End: November 19, 2024 Team Status: Inactive Member Role Status Dates Griselda Hastings DO Primary Care Provider Active Sta rt: 2024 End: 2024 Griselda Hastings DO Attending Provider Active Start: 2024 End: 2024 Team Status: Inactive Member Role Status Dates Griselda Hastings DO Primary Care Provider Active Sta rt: January 12, 2025 End: January 12, 2025 Solomon Montez APRN Attending Provider Active Start: January 12, 2025 End: January 12, 2025 Landscape Architecture Professor Relationship Specialty Start Date End Date Griselda Hastings DO PCP [facility] 02/13/23 Landscape Architecture Professor Relationship Specialty Start Date End Date Griselda Hastings DO PCP - General Family Medicine 02/13/23 Goals (unrecognized section and content) Goals from [...] 2022 (Given - Provider: Elizabeth Esposito RN) 0029 (Given - Provider: Elizabeth Esposito RN)0615 (Given - Provider: Elizabeth Esposito RN)1315 (Due)1915 (Due) amLODIPine (Norvasc) tablet 10 mg 10 [...] since Sun04/09/2024 at 1857 until manually unheld 1857 (Held by provider - Provider: Chicho Bryan MD - Reason: Post-procedure)1915 (Dose Auto Held) 0900 (Canceled Entry - [...] Verify Medical [employer] - Provider: Goyo Agarwal RN)1715 (Due) polyethylene glycol (Glycolax, Miralax) packet 17 g 17 g, oral, 2 times daily, First dose on Sun04/09/24 at 2100, Phase II/On Unit, Bowel Regimen - for prevention of constipation. 2009 (Not Given - Provider: Elizabeth Esposito RN - Reason: Patient/family refused) 1034 (Given - Provider: Whitney Kaufman RN)2100 (Due) tiZANidine (Zanaflex) tablet 4 mg 4 mg, oral, Nightly, First dose on Sun04/09/24 at 2100, Phase II/On Unit 2022 (Given - Provider: Elizabeth Esposito RN) 2100 (Due) Continuous Medication Order 04/08/2024 04/09/2024 04/10/2024 lactated Ringer's infusion (CANCELED) 20 mL/hr, intravenous, Continuous, Starting on Sun04/09/24 at 1215, Preprocedure 1341 (New Bag - Provider: NAVEEN Bear Capp)1630 (Stopped - Provider: NAVEEN Reddy)1631 (Continued from OR - Provider: Goyo Agarwal RN) 1451 (Due: Stopped - Provider: Nikole Lezama, AnuradhaD) lactated Ringer's infusion 100 mL/hr, intravenous, Continuous, [...] Goyo Agarwal RN)1730 (Given - Provider: Goyo Agarwal RN) HYDROmorphone PF (Dilaudid) injection 0.2 mg [...] RN) 29 (Given - Provider: Elizabeth Esposito RN)0615 (Given - Provider: Elizabeth Esposito RN) oxyCODONE [...] BE BASED ON THE PRIMARY CLINICAL RECORDS. [facility] Take the Interview [facility]. provides no warranty or guarantee of the accuracy or completeness of information in this document.
[2025-02-09 06:50] VITALS: BP 115/80; PULSE 78; TEMP 36.3; O2SAT 94
[2025-02-09] MEDS: 0.9 % SODIUM CHLORIDE 1,000 ML 1000 ML IV (06:55)
[2025-02-09] MEDS: CLINDAMYCIN PHOSPHATE/D5W 600 MG/50 ML PREMIX 100 MG IV (07:28)
[2025-02-09] MEDS: LIDOCAINE HCL 2%-EPINEPHRINE 1:200,000 20 ML MDV 5 ML INJ (07:50)
--- NOTE | 2025-02-09 08:09 | W.PM.PROCNOT ---
Date of procedure: 02/09/25 Pre-op diagnosis: Pain due to cervical stenosis, M96.1 Post-op diagnosis: same as pre-op Procedure: Procedure: Cervical spinal cord stimulator trial Procedure Performed by: Sarina Ramsey M.D. Procedure: Placement of [employer] 16 contact neuroelectrode trial leads (x two) under fluoroscopic guidance *Needle Drop Wire Operator at the interspace below T11/12 *Final Lead Placement Level at the top of the vertebral body C3 Anesthesia: Monitored Anesthesia Care is medically necessary for the procedure due to the procedure requiring the patient to remain motionless for a prolonged period of time. Procedure: Risks, Benefits, Alternatives were reviewed and informed consent was obtained in the preop holding area. All questions were answered appropriately. The patient was brought to the operating room and placed in the prone position with padding under all bony prominences. A pre-procedure time out was performed specifying pt. name, nature site and side of surgery, and allergies. Anesthesia provided appropriate sedation as the skin over the thoracic and lumbar spine were prepped with duraprep and draped in the usual sterile fashion. Under fluoroscopic guidance, the above noted interspace was identified as the site for epidural needle entry. The skin and subcutaneous tissues were anesthetized approximately 1 level inferior to this point with a mixture of 1% lidocaine and 0.25% bupivacaine. Two 14 gauge tuouy needles were inserted to the superior aspect of the lamina just inferior to the target interspace. Then, using loss of resistance technique as well as fluoroscopic guidance, the epidural space was entered. Two [employer] Trial Stimulator Leads were then advanced under intermittent fluoroscopic guidance until the distal tip of the electrode was observed to be in position at the final position noted above. After appropriate electrode placement was achieved, stimulation was tested intraoperatively with multiple lead configurations until concordant paresthesias were obtained covering the areas of the patient's pain. At this point, the needles and stylets were removed carefully and the leads were secured to the skin using steri-strips. The region was covered using a sterile tegaderm bandage. The patient was escorted to the recovery area in stable condition having tolerated the procedure well. Anesthesia: MAC Surgeon: Sarina Ramsey Pathology: none sent Condition: stable Disposition: no change
[2025-02-09 08:13] VITALS: BP 111/79; PULSE 53; TEMP 36.7; O2SAT 96
[2025-02-09 08:19] VITALS: BP 108/71; PULSE 72; TEMP 36.7; O2SAT 96
--- NOTE | 2025-02-09 08:29 | PC.NURSE ---
Fabio from [employer] adjusting spinal cord stimulator
== END 2025-02-09 09:00 | disposition home or self-care (01) ==
PROVIDERS: PCP Family Medicine; Visit Provider Anesthesiology
DX: M96.1 Postlaminectomy syndrome, not elsewhere classified (principal); M48.02 Spinal stenosis, cervical region; F17.210 Nicotine dependence, cigarettes, uncomplicated; R06.00 Dyspnea, unspecified; E78.5 Hyperlipidemia, unspecified; I10 Essential (primary) hypertension; I73.9 Peripheral vascular disease, unspecified; K21.9 Gastro-esophageal reflux disease without esophagitis; F41.9 Anxiety disorder, unspecified; G62.9 Polyneuropathy, unspecified
CPT/HCPCS: 63650; C1778; J2250; J2704; J3010

== ENCOUNTER 2025-02-12 12:19 | Outpatient (OUT) | payer MEDICARE, OTHER, SELFPAY ==
--- OUTSIDE RECORDS SUMMARY | 2025-02-04 14:30 | XMS_ITS | Encounter Summary ---
Author Organization [facility] Address [address] [place] [address] Care Team Providers Care Air Cargo Specialist Supervisor Name Role Phone Jax Hastings DO Primary Care Provider [phone] Encounter Details Date Type Department Care Team (Late st Contact Info) Description 02/04/2025 2:30 PM EDT Clinical Support [facility] [address] [address] Oziel Cadena MD [address] [facility] [address] [place] [address] [id number] Social History Tobacco Use Types Packs/Day Years [...] Sign Reading Time Taken Comments Blood Pressure 133/93 02/04/2025 2:41 PM EDT Pulse 113 02/04/2025 2:41 PM EDT Temperature - - Respiratory Rate - - Oxygen Saturation - - Inhaled Oxygen Concentration - - Weight 72.1 kg (159 lb) 02/04/2025 2:41 PM EDT Height - - Body Mass Index 24.18 05/21/2024 2:04 PM EST documented in this encounter Plan of Treatment Upcoming Encounters Date Type Department Care Team (Late st Contact Info) Description 03/18/2025 2:20 PM EDT Clinical Support [facility] [address] [facility] [address] [place] [address] Oziel Cadena MD [address] [facility] [address] [phone] 01/08/2026 8:30 AM EDT Office Visit [facility] [address] [facility] [address] [place] [address] Anahi Franco PA [address] [facility] [address] [place] [address] documented as of this encounter Visit Diagnoses Not on filedocumented in this encounter Care Teams Air Cargo Specialist Supervisor Relationship Specialty Start Date End Date aJx Hastings DO PCP - General Family Medicine 02/13/23 documented as of this encounter
--- OUTSIDE RECORDS SUMMARY | 2025-02-12 12:23 | XMS_ITS | Encounter Summary ---
Author Organization [facility] Address [address] [place] [address] Care Team Providers Care Jewelry Mechanic Name Role Phone Jax Hastings Neisha JOSÉ Primary Care Provider [phone] Encounter Details Date Type Department Care Team (Late st Contact Info) Description 12/11/2023 Orders Only [facility] [address], [place] [phone] Amber Mi MA Social History Tobacco Use [...] [facility] [address] [place] [address] Oziel Cadena MD [address], [place] [address] 01/08/2026 8:30 AM EDT Office Visit [facility] [address] [place] [address] Anahi Franco PA [address] [place] [address] documented as of this encounter Visit Diagnoses Not on filedocumented in this encounter Care Teams Jewelry Mechanic Relationship Specialty Start Date End Date Jax Hastings DO PCP - General Family Medicine 02/13/23 documented as of this encounter
--- OUTSIDE RECORDS SUMMARY | 2025-02-12 12:23 | XMS_ITS | Encounter Summary ---
Author Organization [facility] Address [address] [place] [address] Phone Care Team Providers Care Cylinder Head Assembler Name Role Phone Jax Hastings DO Primary Care Provider [phone] Helder Saleem MD Unavailable [phone] René Narayanan PA-C Unavailable [phone] Encounter Details Date Type Department Care Team (Late st Contact Info) Description 12/18/2022 Patient Risk Score ACO Care Management [address] [place] [address] Social History Tobacco Use Types [...] Description 04/06/2025 9:30 AM EDT Office Visit [facility] [address] [facility] [address] [place] [address] Doretha Harris MD [address] [place], [place] [phone] documented as of this encounter Visit Diagnoses Not on filedocumented in this encounter Care Teams Cylinder Head Assembler Relationship Specialty Start Date End Date Jax Hastings DO [address] [place] [address] PCP - General 01/03/19 [place] [address] [place] [address] Consulting Physician Hematology and Oncology 10/05/23 René Narayanan PA-C [address] [place] [address] Physician Collator Hand Neurosurgery 12/12/23 documented as of this encounter
--- OUTSIDE RECORDS SUMMARY | 2025-02-12 12:23 | XMS_ITS | Encounter Summary ---
Author Organization [facility] Address [address] [place] [address] Phone Care Team Providers Care Executive Cyber Leader Name Role Phone Jax Hastings DO Primary Care Provider [phone] Helder Saleem MD Unavailable [phone] René Narayanan PA-C Unavailable [phone] Encounter Details Date Type Department Care Team (Late st Contact Info) Description 01/18/2023 Patient Risk Score ACO Care Management [address] [place] [address] Social History Tobacco Use Types [...] Description 04/06/2025 9:30 AM EDT Office Visit [facility] [address] [facility] [address] [place] [address] Doretha Harris MD [address] [place], [place] [phone] documented as of this encounter Visit Diagnoses Not on filedocumented in this encounter Care Teams Executive Cyber Leader Relationship Specialty Start Date End Date Jax Hastings DO [address] [place] [address] PCP - General 01/03/19 [place] [address] [place] [address] Consulting Physician Hematology and Oncology 10/05/23 René Narayanan PA-C [address] [place] [address] Physician Cake Wrapper Neurosurgery 12/12/23 documented as of this encounter
--- OUTSIDE RECORDS SUMMARY | 2025-02-12 12:23 | XMS_ITS | Encounter Summary ---
Author Organization [facility] Address [address] [place] [address] Phone Care Team Providers Care Loom Checker Name Role Phone Jax Hastings DO Primary Care Provider [phone] Helder Saleem MD Unavailable [phone] René Narayanan PA-C Unavailable [phone] Encounter Details Date Type Department Care Team (Late st Contact Info) Description 04/10/2024 Scanned Document [facility] [address] [place] [address] Doretha Harris MD [address] [place], [place] [phone] Social History Tobacco Use Types Packs/Day Years Used Date Smoking Tobacco: Every Day Cigarettes 0.5 51.7 Started: 1971 Passive Smoke Exposure: Never Smokeless [...] [facility] in the [facility] were you [facility] or living in a nursing home (including now)? No 04/09/2024 Sex and [...] Description 04/06/2025 9:30 AM EDT Office Visit [facility] [phone] [place] [phone] Doretha Harris MD [address] [place], [place] [phone] documented as of this encounter Goals Goal [...] documented as of this encounter Care Teams Loom Checker Relationship Specialty Start Date End Date Jax Hastings DO [address] [place] [address] PCP - General 01/03/19 [place] [address] [place] [address] Consulting Physician Hematology and Oncology 10/05/23 René Narayanan, KARLOC [address] [place] [address] Physician Lead Military Analyst Neurosurgery 12/12/23 documented as of this encounter
--- OUTSIDE RECORDS SUMMARY | 2025-02-12 12:23 | XMS_ITS | Clinical Summary ---
Author Organization [facility] Address [address] [place] [address] Phone Care Team Providers Care Gas Mask Assembler Name Role Phone DarlingJax Neisha JOSÉ Primary Care Provider [phone] Helder Saleem MD Unavailable [phone] René Narayanan PA-C Unavailable [phone] Allergies Active Allergy Reactions Criticality Noted [...] Date Type Department Care Team Description 12/30/2024 [facility] [address] [facility] [address] [place] [address] Asya Ashley MA from Last 3 Months Family History Medical [...] time in the past 12 [address] [facility], were you homeless or living in [...] 04/06/2025 9:30 AM EDT Office Visit [facility] [address] [facility] [address] [place] [address] Camille Harris MD [address] [place] [address] Health Maintenance Due Date Last Done Comments [...] 1-dose series) 2022 COVID-19 Vaccine (1 - 2023- season) 2024 DTaP/Tdap/Td Vaccines (2 - Td [...] Harris MD Medical Devices Implanted Type Area Family Services Assistant Device Identifier Shelf Expiration Date Model / Serial / Lot Allograft, Triad [employer]otic 6 X 11 X 14 - [id number] - [id number] Implanted:Qt y: 1 on 04/09/2024 by Rojas Edwards MD at [facility] Spinal Hardware N/A: [employer] 03/14/2028 [id number] / [id number] / Allograft, Triad Lordotic 6 X 11 X 14 - [id number] - [id number] Implanted:Qt y: 1 on 04/09/2024 by Rojas Edwards MD at [facility] Spinal Hardware N/A: [employer] 04/29/2028 [id number] / [id number] / Plate, Acp, 1.6v, 2 Level, 34mm - [id number] Implanted:Qt y: 1 on 04/09/2024 by Rojas Edwards MD at [facility] Spinal Hardware N/A: [employer] [id number] / / Screw, Acp, Self Drill, 3.5 X 17mm, Variable - [id number] Implanted:Qt y: 2 on 04/09/2024 by Rojas Edwards MD at [facility] Spinal Hardware N/A: [employer] [id number] / / 3.5 X 19mm Screw Implanted:Qt y: 4 on 04/09/2024 by Rojas Edwards MD at [facility] N/A: [employer] [id number] / / Description:per bill only brent r [...] LAB CHEMISTRY METHOD 04/10/2024 10:32 AM EDT [facility] Sodium 138 136 - 145 mmol/L LAB CHEMISTRY METHOD 04/10/2024 10:32 AM EDT [facility] Potassium 4.5 3.5 - 5.3 mmol/L LAB CHEMISTRY METHOD 04/10/2024 10:32 AM EDT [facility] Chloride 103 98 - 107 mmol/L LAB CHEMISTRY METHOD 04/10/2024 10:32 AM EDT [facility] Bicarbonate 26 21 - 32 mmol/L LAB CHEMISTRY METHOD 04/10/2024 10:32 AM EDT [facility] Anion Gap 14 10 - 20 mmol/L LAB CHEMISTRY METHOD 04/10/2024 10:32 AM EDT [facility] Urea Nitrogen 14 6 - 23 mg/dL LAB CHEMISTRY METHOD 04/10/2024 10:32 AM EDT [facility] Creatinine 0.86 0.50 - 1.30 mg/dL LAB CHEMISTRY METHOD 04/10/2024 10:32 AM EDT [facility] eGFR >90 >60 mL/min/1. 73m*2 LAB CHEMISTRY METHOD 04/10/2024 10:32 AM EDT [facility] Comment: Calculations of estimated GFR are performed using the 2020 CKD-EPI Study Refit equation without the race variable for the IDMS-Traceable creatinine methods. https://jasn.asnjournals.org/content/early/ASN.9954012906 Calcium 9.0 8.6 - 10.6 mg/dL LAB CHEMISTRY METHOD 04/10/2024 10:32 AM EDT [facility] Blood Venous blood specimen / Unknown Venipuncture / Unknown 04/10/2024 9:19 AM EDT 04/10/2024 10:03 AM EDT us Camille Harris MD LAB BLOOD ORDERABLES Final Resul t [facility] [id number] [place], [place] [id number] * XR DEXA bone density (02/13/2024 10:50 AM EDT) 12/29/2024 8:11 AM EDT 12/29/2024 8:11 AM EDT [facility] - 12/29/2024 8:09 AM EDT DEXA: Moderately low bone mineral density FRAX and Z-Score calculations include ethnicity in determining the score for these values, as determined by organizations such as the NIH, WHO and NOF. All images and detailed analysis are available on the Radiology PACS. MACRO: None Signed by: Ruddy Lopez 12/29/2024 8:09 AM Dictation workstation: [id number] Narrative [facility] - 12/29/2024 8:09 AM EDT Interpreted By: Ruddy Lopez, STUDY: DEXA BONE DENSITY02/13/2024 10:50 am INDICATION: Signs/Symptoms:r/o osteoporosis, NEED AXIAL SKELETON IMAGES.. The patient is a 63 y/o year old M. ,M54.12 Radiculopathy, cervical region COMPARISON: None. ACCESSION NUMBER(S): [id number] ORDERING CLINICIAN: CAMILLE HARRIS TECHNIQUE: DEXA BONE [...] Radiculopathy, cervical region COMPARISON: None. ACCESSION NUMBER(S): [id number] ORDERING CLINICIAN: CAMILLE HARRIS TECHNIQUE: DEXA BONE [...] Ruddy Lopez 12/29/2024 8:09 AM Dictation workstation: [id number] Camille Harris MD IMG DXA PROCEDURES Final Result [facility] from Last 3 Months or Most Recently Relevant to Health Maintenance Additional Health Concerns Active Problems Noted Date Diagnosed Date Patient has spine surgery 01/09/2024 Insurance [facility] MEDICARE PART A AND B [facility] MEDICARE PART A AND B Advance Directives For more information, please contact: [phone] (Available ) Documents on File Type Date Recorded Patient Computer Programmer Analyst Expl anation Living Will 10/05/2023 9:39 AM [...] Discussion Completed Decision Maker: Patient Care Teams Gas Mask Assembler Relationship Specialty Start Date End Date Jax Hastings DO [address] [place] [address] PCP - General 01/03/19 [place] [address] [place] [address] Consulting Physician Hematology and Oncology 10/05/23 René Narayanan, PAFranC [address] [place] [address] Physician High School Coach Neurosurgery 12/12/23
--- OUTSIDE RECORDS SUMMARY | 2025-02-12 12:23 | XMS_ITS | Encounter Summary ---
Author Organization [facility] Address [address] [facility] [place] [address] Care Team Providers Care Wildlife Biologist Name Role Phone Jax Hastings DO Primary Care Provider [phone] Encounter Details Date Type Department Care Team (Late st Contact Info) Description 04/03/2023 Abstract [facility] [address] [place] [address] Nikole Mota, IN HOME SALES CONSULTANT [address] [place] [address] Social History Tobacco Use Types Packs/Day Years [...] [facility] [address] [facility] [address] [place] [address] Oziel Cadena MD [address] [facility] [address] [id number] 01/08/2026 8:30 AM EDT Office Visit [facility] [address] [facility] [address] [place] [address] Anahi Franco PA [address] [facility] [address] [place] [address] documented as of this encounter Visit Diagnoses Not on filedocumented in this encounter Care Teams Wildlife Biologist Relationship Specialty Start Date End Date Jax Hastings DO PCP - General Family Medicine 02/13/23 documented as of this encounter
--- OUTSIDE RECORDS SUMMARY | 2025-02-12 12:23 | XMS_ITS | Encounter Summary ---
Author Organization [facility] Address [address] [place] [address] Care Team Providers Care City Sanitarian Name Role Phone Andreagideon Jax Neisha JOSÉ Primary Care Provider [phone] Encounter Details Date Type Department Care Team (Late Contact Info) Description 03/13/2023 Abstract [facility] [address] [place] [address] Oziel Cadena MD [address], [place] [address] Social History Tobacco Use Types Packs/Day Years [...] [facility] [address] [facility] [address] [place] [address] Oziel Cadena MD 1606 [facility] [address] [id number] 01/08/2026 8:30 AM EDT Office Visit [facility] [address] [facility] [address] [place] [address] Anahi Franco PA [address] [facility] [address] [place] [address] documented as of this encounter Visit Diagnoses Not on filedocumented in this encounter Care Teams City Sanitarian Relationship Specialty Start Date End Date Jax Hastings DO PCP - General Family Medicine 02/13/23 documented as of this encounter
--- OUTSIDE RECORDS SUMMARY | 2025-02-12 12:23 | XMS_ITS | Encounter Summary ---
Author Organization [facility] Address [address] [place] [address] Care Team Providers Care Software Maintenance Engineer Name Role Phone AndreaJax meneses Neisha JOSÉ Primary Care Provider [phone] Encounter Details Date Type Department Care Team (Late st Contact Info) Description 02/19/2023 Abstract [facility] [address] [facility] [address] [place] [address] Mary Henderson, NICK [address] [facility] [address] [place] [address] Social History Tobacco Use Types Packs/Day Years [...] Clinical Support [facility] [address] [facility] [address] [place] [address] Oziel Cadena MD [address] [facility] [address] [place] [address] 01/08/2026 8:30 AM EDT Office Visit [facility] [address] [place] [address] Anahi Franco PA [address] [place] [address] documented as of this encounter Visit Diagnoses Not on filedocumented in this encounter Care Teams Software Maintenance Engineer Relationship Specialty Start Date End Date Jax Hastings DO PCP - General Family Medicine 02/13/23 documented as of this encounter
--- OUTSIDE RECORDS SUMMARY | 2025-02-12 12:23 | XMS_ITS | Encounter Summary ---
Author Organization [facility] Address [address] [facility] [place] [address] Care Team Providers Care Violin Teacher Name Role Phone AndreaJax meneses Neisha JOSÉ Primary Care Provider [phone] Encounter Details Date Type Department Care Team (Late Contact Info) Description 02/04/2025 Bamboo flowsheet [facility] [address] [place] [address] Oziel Cadena MD [address] [place] [address] [id number] Social History Tobacco Use Types Packs/Day Years [...] Department Care Team (Late Contact Info) Description 03/18/2025 2:20 PM EDT Clinical Support [facility] [place] [facility] [address] [place] [address] [place] [address] Oziel Cadena MD [address] [place] [id number] 01/08/2026 8:30 AM EDT Office Visit [facility] [address] [place] [address] Anahi Franco PA [address] [place] [address] documented as of this encounter Visit Diagnoses Not on filedocumented in this encounter Care Teams Violin Teacher Relationship Specialty Start Date End Date Jax Hastings DO PCP - General Family Medicine 02/13/23 documented as of this encounter
--- OUTSIDE RECORDS SUMMARY | 2025-02-12 12:23 | XMS_ITS | Encounter Summary ---
Author Organization [facility] Address [address] [place] [address] Phone Care Team Providers Care Ophthalmology Technician Name Role Phone Jax Hastings DO Primary Care Provider [phone] Helder Saleem MD Unavailable [phone] René Narayanan PA-C Unavailable Encounter Details Date Type Department Care Team (Late st Contact Info) Description 01/11/2024 Scanned Document [facility] [address] [place] [address] Doretha Harris MD [address] [place], [place] [phone] Social History Tobacco Use Types Packs/Day Years [...] Office Visit [facility] [address] [facility] [address] [place] [address] Doretha Harris MD [address] [place] [address] documented as of this encounter Goals Goal [...] documented as of this encounter Care Teams Ophthalmology Technician Relationship Specialty Start Date End Date Jax Hastings DO [address] [place] [address] PCP - General 01/03/19 [place] [address] [place] [address] Consulting Physician Hematology and Oncology 10/05/23 René Narayanan PA-C [address] [place] [address] Physician Loom Stop Checker Neurosurgery 12/12/23 documented as of this encounter
--- OUTSIDE RECORDS SUMMARY | 2025-02-12 12:23 | XMS_ITS | Clinical Summary ---
Author Organization [facility] Address [address] [facility], [address] [place] [address] Care Team Providers Care Child Support Case Officer Name Role Phone Jax Hastings DO Primary Care Provider [phone] Allergies Active Allergy Reactions Criticality Noted Date [...] 11/25/2007 FIT/FOBT: Average risk 11/25/2007 Fecal-DNA (Cologuard): Kimball ge risk 11/25/2007 Sigmoidoscopy/CT colonography 11/25/2007 Shingles [...] age to complete this topic Insurance [facility] Care Teams Child Support Case Officer Relationship Specialty Start Date End Date Jax Hastings DO [address] [facility] 1 [place] [address] PCP - General Family Medicine 06/13/23
--- OUTSIDE RECORDS SUMMARY | 2025-02-12 12:23 | XMS_ITS | Encounter Summary ---
Author Organization [facility] Address [address] [place] [address] Phone Care Team Providers Care Filter Worker Name Role Phone Jax Hastings DO Primary Care Provider [phone] Helder Saleem MD Unavailable [phone] René Narayanan PA-C Unavailable [phone] Encounter Details Date Type Department Care Team (Late st Contact Info) Description 02/18/2023 Patient Risk Score ACO Care Management [address] [place] [address] Social History Tobacco Use Types [...] Description 04/06/2025 9:30 AM EDT Office Visit [facility] [address] [facility] [address] [place] [address] Doretha Harris MD [address] [place], [place] [phone] documented as of this encounter Visit Diagnoses Not on filedocumented in this encounter Care Teams Filter Worker Relationship Specialty Start Date End Date Jax Hastings DO [address] [place] [address] PCP - General 01/03/19 [place] [address] [place] [address] Consulting Physician Hematology and Oncology 10/05/23 René Narayanan PA-C [address] [place] [address] Physician Social Media Marketing Specialist Neurosurgery 12/12/23 documented as of this encounter
--- OUTSIDE RECORDS SUMMARY | 2025-02-12 12:23 | XMS_ITS | Encounter Summary ---
Author Organization [facility] Address [address] [place] [address] Care Team Providers Care Alumni Relations Manager Name Role Phone Jax Hastings Primary Care Provider [phone] Encounter Details Date Type Department Care Team (Latest Contact Info) Description 02/04/2025 Travel Social History Tobacco Use Types Packs/Day [...] Neurology [address] [place] [address] Oziel Cadena MD [address] [facility] [address] [place] [id number] 01/08/2026 8:30 AM EDT Office Visit [facility] [address] [place] [address] Anahi Franco PA [address] [place] [address] documented as of this encounter Visit Diagnoses Not on filedocumented in this encounter Care Teams Alumni Relations Manager Relationship Specialty Start Date End Date Jax Hastings DO PCP - General Family Medicine 02/13/23 documented as of this encounter
--- OUTSIDE RECORDS SUMMARY | 2025-02-12 12:23 | XMS_ITS | Encounter Summary ---
Author Organization [facility] Address [address] [place] [address] Phone Care Team Providers Care Pattern Data Operator Name Role Phone Jax Hastings DO Primary Care Provider [phone] Helder Saleem MD Unavailable [phone] René Narayanan PA-C Unavailable [phone] Encounter Details Date Type Department Care Team (Late st Contact Info) Description 12/12/2023 Scanned Document [facility] [address] [place] [address] René Narayanan PA-C [address], [facility] [address] [place], [place] [phone] Social History Tobacco Use Types Packs/Day Years [...] Several days 12/12/2023 1:10 PM EDT Asya Ugner MA Feeling down, depressed, or hopeless Several [...] Description 04/06/2025 9:30 AM EDT Office Visit [facility] [address] [facility] [address] [place] [address] Doretha Harris MD [address] [place] [address] documented as of this encounter Visit Diagnoses Not on filedocumented in this encounter Additional Health Concerns Assessment Noted Time A fall risk assessment has been complete d for the patient 12/12/2023 1:10 PM EDT documented as of this encounter Care Teams Pattern Data Operator Relationship Specialty Start Date End Date Jax Hastings DO [address] [place] [address] PCP - General 01/03/19 [place] [address] [place] [address] Consulting Physician Hematology and Oncology 10/05/23 MilkRené meneses PA-C [address] [id number] Physician Technical Clerk Neurosurgery 12/12/23 documented as of this encounter
--- OUTSIDE RECORDS SUMMARY | 2025-02-12 12:23 | XMS_ITS | Encounter Summary ---
Author Organization [facility] Address [address] [place] [address] Care Team Providers Care Working Supervisor Name Role Phone Jax Hastings Primary Care Provider [phone] Encounter Details Date Type Department Care Team (Late Contact Info) Description 05/04/2023 External Result Encounter [facility] External Department Unsolicited Nikole Mota NP [address], [place] [address] Social History Tobacco Use Types Packs/Day Years [...] 03/18/2025 2:20 PM EDT Clinical Support [facility] [address] [place] [address] Oziel Cadena MD [address] [place] [address] 01/08/2026 8:30 AM EDT Office Visit [facility] [address] [place] [address] Anahi Franco PA [address] [place] [address] documented as of this encounter Procedures [...] Alber Goodson M.D.05/04/2023 4:34 PM Dictation Location: [place] [address] Transcribed By: [facility] 05/04/23 1634 Dictated By: Alber Goodson II, MD 05/04/23 1549 Signed By: <Electronically signed by Alber Goodson II, MD in OV> 05/04/23 1634 Narrative 05/07/2023 4:31 PM EST [facility] Main [address] [address] [address] Scan Report Signed Patient: Jovani Kong MR#: [id number] : 1960 Acct:[id number] Age/Sex: 62 / M ADM Date: 05/04/23 Loc: CT Room: Type: [facility] Attending Dr: Nikole Mota APRN, SALES AND MARKETING ADMINISTRATOR-C Copies to: Nikole Mota APRN, CNP Ordering Provider: Nikole Mota APRN, CNP Date of Service: 05/04/23 CT/CT angio neck: H53.9, I65.23, I65.1, I66.09, I65.29 ([id number]) CT/CT angio head: H53.9, I65.23, I65.1, I66.09, [...] head Procedure Note Radiology, Radiologist, - 05/07/2023 [facility] Main [place] [address] [place] [address] CT Scan Report Signed Patient: Jovani Kong CMR#: [id number] : 1960Acct:[id number] Age/Sex: 62 / MADM Date: 05/04/23 Loc: CT Room:Type: [facility] Attending Dr: Nikole Mota APRN, SALES AND MARKETING ADMINISTRATOR-C Copies to: Nikole Mota APRN,HOTEL BAGGAGE HANDLER Ordering Provider: Nikole Mota APRN,LUCIO Date of Service: 05/04/23 CT/CT angio neck: H53.9, I65.23, I65.1, I66.09,I65.29 ([id number]) CT/CT angio head: H53.9, I65.23, I65.1, I66.09, [...] Alber Goodson M.D.05/04/2023 4:34 PM Dictation Location: [place] [address] Transcribed By: [facility] 05/04/23 1634 Dictated By: Alber Goodson II, MD 05/04/23 1549 Signed By: <Electronically signed by Alber Goodson II, MD inOV> 05/04/23 1634 us Nikole Mota SALES AND MARKETING ADMINISTRATOR IMG CT PROCEDURES Final Result documented in this encounter Visit Diagnoses Not on filedocumented in this encounter Care Teams Working Supervisor Relationship Specialty Start Date End Date Jax Hastings DO PCP - General Family Medicine 02/13/23 documented as of this encounter
--- OUTSIDE RECORDS SUMMARY | 2025-02-12 12:23 | XMS_ITS | Encounter Summary ---
Author Organization [facility] Address [address] [place] [address] Phone Care Team Providers Care Supervisor Tank Storage Name Role Phone Jax Hastings DO Primary Care Provider [phone] Helder Saleem MD Unavailable [phone] René aNrayanan PA-C Unavailable [phone] Encounter Details Date Type Department Care Team (Late st Contact Info) Description 01/14/2024 Scanned Document [facility] [address] [place] [address] Doretha Harris MD [address] [place], [place] [phone] Social History Tobacco Use Types Packs/Day Years [...] Description 04/06/2025 9:30 AM EDT Office Visit [facility] [address] [facility] [address] [place] [address] Doretha Harris MD [address] [place] [address] documented as of this encounter Goals Goal [...] documented as of this encounter Care Teams Supervisor Tank Storage Relationship Specialty Start Date End Date Jax Hastings DO [address] [place] [address] PCP - General 01/03/19 [place] [address] [place] [address] Consulting Physician Hematology and Oncology 10/05/23 René Narayanan PA-C [address] [place] [address] Physician Cuff Stitcher Neurosurgery 12/12/23 documented as of this encounter
--- OUTSIDE RECORDS SUMMARY | 2025-02-12 12:23 | XMS_ITS | Clinical Summary ---
Author Organization [facility] Healthcare Address [address] [place] [address] Care Team Providers Care Dental Hygiene Professor Name Role Phone Jax Hastings DO Primary Care Provider [phone] Allergies Active Allergy Reactions Criticality Noted Date Comments Cephalexin Hives 11/25/2018 Other Reaction(s): hives, Unknown Medications mirtazapine (Remeron) 15 MG tablet 3 Active ibuprofen 600 MG tablet Active hydrOXYzine HCl (Atarax) 25 MG tablet 2 Active citalopram (CeleXA) 20 MG tablet Active ASPIRIN 81 PO Active Multiple Vitamin (MULTIVITAMIN ADULT PO) Take 1 capsule by mouth in the morning. Active amLODIPine (Norvasc) 5 MG tablet Take 1 tablet by mouth Daily Active clotrimazole-be tamethasone (Lotrisone) cream Active clopidogrel (Plavix) 75 MG tablet Take 75 mg by mouth Daily 4 Active ezetimibe (Zetia) 10 MG tablet Take 10 mg by mouth Daily 3 Active rosuvastatin (Crestor) 5 MG tablet Take 5 mg by mouth Daily 4 Active pravastatin (Pravachol) 40 MG tablet Take 40 mg by mouth at bedtime 4 Active lisinopril 5 MG tablet Take 5 mg by mouth Daily 4 Active Brexpiprazole 1 MG tablet 4 Active HYDROcodone-vanda taminophen (Jbphh) 5-325 MG tablet 4 Active terbinafine (LamISIL AT) 1 % creamIndication s:Tinea manuum Apply to the affected area on the hand, bid, 30 day supply 42 g 1 4 Active albuterol HFA 90 mcg/act inhaler Inhale [...] days 18 pills 18 tablet 1 5 Active Active Problems Problem Noted Date [...] Encounters Date Type Department Care Team Description 02/04/2025 2:30 PM EDT Clinical Support [facility] [address] [place] [address] Oziel Cadena MD 02/04/2025 Bamboo flowsheet [facility] [address] [place] [address] Oziel Cadena MD 02/04/2025 Travel 01/28/2025 Travel 01/27/2025 Telephone [facility] [address] [place] [phone] Mayte Morrison MA 01/08/2025 10:20 AM EDT Office Visit [facility] [place] [facility] [address] [place] [address] Anahi Franco PA Melanocytic nevus of trunk (Primary Dx); Seborrheic keratosis; Inflamed seborrheic keratosis; Actinic keratosis; Capillary angioma; History of SCC (squamous cell carcinoma) of skin 01/08/2025 Bamboo flowsheet [facility] [address] [place] [address] Anahi Franco PA 01/08/2025 Travel 01/07/2025 Travel 12/30/2024 Telephone [facility] [place] [facility] [address] [place] [phone] Ary Lugo, RT. R 12/29/2024 1:30 PM EDT Ancillary Procedure [facility] [address] [place] [address] Arthrodesis status 12/29/2024 Refill [facility] [address] [place] [phone] Amber Mi MA Cervical stenosis of spinal canal (Primary Dx) 12/29/2024 Travel 12/24/2024 2:00 PM EDT [facility] [address] [place] [address] Oziel Cadena MD Nerve root and plexus disorder, unspecified (Primary Dx); Acute pain of left shoulder 12/24/2024 Bamboo flowsheet [facility] [address] [place] [address] Oziel Cadena MD 12/24/2024 Travel 12/17/2024 Travel 11/19/2024 Telephone [facility] [address] [place] [phone] Ary Luog, RT. R 11/12/2024 1:40 PM EDT Clinical Support [facility] [address] [place] [address] Oziel Cadena MD Nerve root and plexus disorder, unspecified (Primary Dx); Acute pain of left shoulder 11/12/2024 Bamboo flowsheet [facility] [address] [facility] [place] [address] Oziel Cadena MD 11/12/2024 Travel from Last 3 Months Immunizations Immunization [...] Pulse 113 02/04/2025 2:41 PM EDT Temperature 36.5 C (97.7 F) 10/04/2023 11:33 AM EDT Respiratory Rate 20 09/10/2023 10:29 AM EDT Oxygen Saturation 97% 10/04/2023 11:33 AM EDT Inhaled Oxygen Concentration - - Weight 72.1 kg (159 lb) 02/04/2025 2:41 PM EDT Height 172.7 cm (5' 8 ) 05/21/2024 2:04 PM EST Body Mass Index 24.18 05/21/2024 2:04 PM EST Plan of Treatment Upcoming Encounters Date Type Department Care Team (Late st Contact Info) Description 03/18/2025 2:20 PM EDT Clinical Support [facility] [address] [place] [address] Oziel Cadena MD [address] [facility] [address] [address] 01/08/2026 8:30 AM EDT Office Visit [facility] [address] [place] [address] Anahi Franco PA [address] [place] [address] Health Maintenance Due Date Last [...] skin lesion (01/08/2025 10:27 AM EDT) Anahi SAAVEDRA DERM PROCEDURE ORDERABLES Geetha l Result * Cryotherapy, skin lesion (01/08/2025 10:23 AM EDT) Anahi SAAVEDRA DERM PROCEDURE ORDERABLES Geetha l Result * [...] Final Result from Last 3 Months Insurance [facility] MEDICARE Care Teams Dental Hygiene Professor Relationship Specialty Start Date End Date Jax Hastings DO PCP - General Family Medicine 02/13/23
--- OUTSIDE RECORDS SUMMARY | 2025-02-12 12:23 | XMS_ITS | Encounter Summary ---
Author Organization [facility] Address [address] [place] [address] Phone Care Team Providers Care Chief Contract Officer Name Role Phone Jax Hastings DO Primary Care Provider [phone] Helder Saleem MD Unavailable [phone] René Narayanan PA-C Unavailable [phone] Encounter Details Date Type Department Care Team (Late st Contact Info) Description 10/10/2024 Scanned Document [facility] [address] [facility] [address] [place] [address] Doretha Harris MD [address] [place], [place] [phone] Social History Tobacco Use Types Packs/Day Years [...] any time in the past 12 m [facility], were you homeless or living in [...] Description 04/06/2025 9:30 AM EDT Office Visit [facility] [address] [facility] [address] [place] [phone] Doretha Harris MD [address] [place] [address] documented as of this encounter Goals Goal [...] documented as of this encounter Care Teams Chief Contract Officer Relationship Specialty Start Date End Date Jax Hastings DO [address] [place] [address] PCP - General 01/03/19 [place] [address] [place] [address] Consulting Physician Hematology and Oncology 10/05/23 René Narayanan PA-C [address] [place] [address] Physician Tankerman Neurosurgery 12/12/23 documented as of this encounter
--- OUTSIDE RECORDS SUMMARY | 2025-02-12 12:23 | XMS_ITS | Encounter Summary ---
Author Organization [facility] Address [address] [place] [address] Phone Care Team Providers Care Associate Genetics Professor Name Role Phone Jax Hastings DO Primary Care Provider [phone] Helder Saleem MD Unavailable [phone] René Narayanan PA-C Unavailable [phone] Encounter Details Date Type Department Care Team (Late st Contact Info) Description 11/07/2024 Scanned Document [facility] [address] [place] [address] [place] [address] [place], [place] [phone] Social History Tobacco Use Types Packs/Day Years [...] any time in the past 12 m [facility], were you homeless or living [...] 9:30 AM EDT Office Visit [facility] [address] [facility] [address] [place] [address] Doretha Harris MD [address] [place] [address] documented as of this encounter Goals Goal [...] documented as of this encounter Care Teams Associate Genetics Professor Relationship Specialty Start Date End Date Jax Hastings DO [address] [place] [address] PCP - General 01/03/19 [place] [address] [place] [address] Consulting Physician Hematology and Oncology 10/05/23 René Narayanan PA-C [address] [place] [address] Physician Feed Research Technician Neurosurgery 12/12/23 documented as of this encounter
--- OUTSIDE RECORDS SUMMARY | 2025-02-12 12:23 | XMS_ITS | Encounter Summary ---
Author Organization [facility] Address [address] [place] [address] Phone Care Team Providers Care Protozoologist Name Role Phone Jax Hastings DO Primary Care Provider [phone] Jax Hastings DO Unavailable Jax Hastings DO Unavailable Helder Saleem MD Unavailable [phone] René Narayanan PA-C Unavailable [phone] Encounter Details Date Type Department Care Team (Late st Contact Info) Description 02/13/2019 Orders Only [facility] [address] [place] [address] Conversion, Onbase Social History Tobacco Use Types [...] Visit [facility] [address] [facility] [address] [place] [address] Doretha Harris MD [address] [place], [place] [phone] Scheduled Orders Name Type Priority Associated Diagnoses Belén barnes Schedule OUTSIDE LAB SCAN Lab Ordered: 02/13/2019 documented as of this encounter Visit Diagnoses Not on filedocumented in this encounter Care Teams Protozoologist Relationship Specialty Start Date End Date Jax Hastings DO [address] [place] [address] PCP - General 01/03/19 Jax Hastings DO [address] [place], [place] [phone] PCP - [facility] PCP 09/16/21 11/15/22 Jax Hastings DO [address] [place], [place] [address] [facility] 10/16/21 12/15/22 [place] [address] [place] [address] Consulting Physician Hematology and Oncology 10/05/23 René Narayanan PA-C [address] [place] [address] Physician Orthotic Assistant Neurosurgery 12/12/23 documented as of this encounter
--- OUTSIDE RECORDS SUMMARY | 2025-02-12 12:23 | XMS_ITS | Encounter Summary ---
Author Organization [facility] Address [address] [place] [address] Phone Care Team Providers Care Otr Owner Operator Truck Driver Name Role Phone Jax Hastings DO Primary Care Provider [phone] Helder Saleem MD Unavailable [phone] René Narayanan PA-C Unavailable [phone] Encounter Details Date Type Department Care Team (Late st Contact Info) Description 01/09/2024 Scanned Document [facility] [address] [place] [address] Doretha Harris MD [address] [place], [place] [phone] Social History Tobacco Use Types Packs/Day Years [...] Description 04/06/2025 9:30 AM EDT Office Visit [facility] [address] [facility] [address] [place] [phone] Doretha Harris MD [address] [place] [address] documented as of this encounter Goals Goal [...] documented as of this encounter Care Teams Otr Owner Operator Truck Driver Relationship Specialty Start Date End Date Jax Hastings DO [address] [place] [address] PCP - General 01/03/19 [place] [address] [place] [address] Consulting Physician Hematology and Oncology 10/05/23 René Narayanan PA-C [address] [place] [address] Physician Camera Supervisor Neurosurgery 12/12/23 documented as of this encounter
--- NOTE | 2025-02-12 12:36 | PM.CN ---
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 notes 80% improvement with spinal cord stimulator trial, 02/09/25 through today due to staff being unable to remove leads after today due to holiday hours/coverage. Noting pain 1/10 in left neck increasing to 2-3/10 with scs trial, NITESH improved now 20%. utilizing lyrica, norco, and tizanidine prn with benefit without side effects. pt eager to proceed with permanent implant. cc:: CC: Delia Bowser NP Review of Systems ROS Musculoskeletal Reports: neck pain; Denies: extremity pain [facility] Medical History (Updated 02/12/25 @ 12:40 by Delia Bowser NP) Tongue carcinoma ?C02.9 - Malignant neoplasm of tongue, unspecified (ICD-10) First degree AV block ?I44.0 - Atrioventricular block, first degree (ICD-10) Claudication of both lower extremities ?I73.9 - Peripheral vascular disease, unspecified (ICD-10) Nicotine dependence with current use ?F17.200 - Nicotine dependence, unspecified, uncomplicated (ICD-10) Oral cancer ?C06.9 - Malignant neoplasm of mouth, unspecified (ICD-10) Cervical radiculopathy ?M54.12 - Radiculopathy, cervical region (ICD-10) Myofascial pain ?M79.18 - Myalgia, other site (ICD-10) Left shoulder pain ?M25.512 - Pain in left shoulder (ICD-10) Mononeuropathy of left suprascapular nerve ?G56.82 - Other specified mononeuropathies of left upper limb (ICD-10) Neuropathy, axillary nerve ?G56.90 - Unspecified mononeuropathy of unspecified upper limb (ICD-10) Cervical spondylosis ?M47.812 - Spondylosis without myelopathy or radiculopathy, cervical region (ICD-10) Degenerative disc disease, cervical ?M50.30 - Other cervical disc degeneration, unspecified cervical region (ICD-10) Chronic prescription opiate use ?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 (ICD-10) Myalgia, other site ?M79.18 - Myalgia, other site (ICD-10) Malignant neoplasm of head and neck ?C76.0 - Malignant neoplasm of head, face and neck (ICD-10) Squamous cell carcinoma Skin cancer ?C44.90 - Unspecified malignant neoplasm of skin, unspecified (ICD-10) Osteoarthritis ?M19.90 - Unspecified osteoarthritis, unspecified site (ICD-10) Depression ?F32.A - Depression, unspecified (ICD-10) Anxiety ?F41.9 - Anxiety disorder, unspecified (ICD-10) Seasonal allergies ?J30.2 - Other seasonal allergic rhinitis (ICD-10) Cataract ?H26.9 - Unspecified cataract (ICD-10) GERD (gastroesophageal reflux disease) ?K21.9 - Gastro-esophageal reflux disease without esophagitis (ICD-10) Dyspnea on exertion ?R06.09 - Other forms of dyspnea (ICD-10) PVD (peripheral vascular disease) ?I73.9 - Peripheral vascular disease, unspecified (ICD-10) High cholesterol ?E78.00 - Pure hypercholesterolemia, unspecified (ICD-10) Neck pain ?M54.2 - Cervicalgia (ICD-10) Low back pain ?M54.50 - Low back pain, unspecified (ICD-10) Smoker ?F17.200 - Nicotine dependence, unspecified, uncomplicated (ICD-10) Irregular heart beat ?I49.9 - Cardiac arrhythmia, unspecified (ICD-10) Hypertension ?I10 - Essential (primary) hypertension (ICD-10) Surgical History Status post surgical removal of malignant neoplasm of skin ?Z98.890 - Other specified postprocedural states (ICD-10) History of tonsillectomy ?Z90.89 - Acquired absence of other organs (ICD-10) Status post cervical spinal fusion ?Z98.1 - Arthrodesis status (ICD-10) Cataract extraction status of left eye ?Z98.42 - Cataract extraction status, left eye (ICD-10) H/O cervical spine surgery ?Z98.890 - Other specified postprocedural states (ICD-10) H/O neck dissection ?Z98.890 - Other specified postprocedural states (ICD-10) Family History Other Family history of COPD (chronic obstructive pulmonary disease) Family history of diabetes mellitus Family history of emphysema Family history of heart disease Family history of hypertension Family history of stroke Family history of throat cancer Social History Within the past year, how often did you have a drink containing alcohol: never Score interpretation: A score less than 4 is consistent with normal alcohol consumption. Smoking status: Current every day smoker Non-prescribed substance use: denies use Previous occupational history: disabled Highest level of school completed/degree received: high school graduate Little interest or pleasure in doing things: not at all Feeling down, depressed, or hopeless: not at all Meds Home Medications and Allergies Home Medications ?Medication ?Instructions ?Recorded ?Confirmed ?Type amlodipine 5 mg tablet (Norvasc) 10 mg PO DAILY 04/16/23 02/09/25 History aspirin 81 mg tablet,delayed 81 mg PO DAILY 04/16/23 02/09/25 History release (Adult Low Dose Aspirin) naloxone 4 mg/actuation nasal 4 mg intranasal Q2M PRN opioid 09/11/24 02/09/25 Rx spray (Narcan) overdose #2 ea hydrocodone 7.5 mg-acetaminophen 1 tab PO BID PRN pain #60 tabs 01/01/25 02/09/25 Rx 325 mg tablet alirocumab 75 mg/mL subcutaneous 75 mg subcut Q14D 01/27/25 02/09/25 History pen injector (Praluent Pen) citalopram 10 mg tablet 10 mg PO DAILY 01/27/25 02/09/25 History ezetimibe 10 mg tablet 10 mg PO DAILY 01/27/25 02/09/25 History multivitamin (Daily Multi-Vitamin 1 tab PO DAILY 01/27/25 02/09/25 History tablet) pantoprazole 40 mg tablet,delayed 40 mg PO Q12H 01/27/25 02/09/25 History release pravastatin 40 mg tablet 40 mg PO DAILY 01/27/25 02/09/25 History tizanidine 4 mg capsule 4 mg PO Q12H 01/27/25 02/09/25 History Allergies Allergy/AdvReac Type Severity Reaction Status Date / Time cephalexin (From Keflex) Allergy Unknown hives Verified 02/09/25 06:56 Exam Neck & C-Spine Cervical spine: cervical ROM abnormal and pain with cervical ROM Other: strength 5/5 in BUE sensation intact BUE Assessment and Plan Assessment and Plan (1) Cervical stenosis of spinal canal: (2) Failed neck syndrome: Plan Jovani Kong presents for evaluation of chronic neck and upper extremity pain secondary to failed neck syndrome and cervical stenosis.? The patient presents today for evaluation of Spinal Cord Stimulator trial.? The patient has completed the prescribed anti-biotic course.? Patient denies any fevers, chills, or night sweats.? The patient states that during the trial pain was decreased by 80%.? Patient states that their activity level was significantly increased.? The patient has?decided to proceed with SCS implant. The dressings were removed.? The leads were removed without difficulty.? The insertion sites are clean, dry, and non-erythematous.? There is no Tenderness to palpation. will refer to Dr James FREY for implant ?
--- OUTSIDE RECORDS SUMMARY | 2025-02-12 12:39 | XMS_ITS | CCD ---
Author Organization [facility] Care Team Providers Care Headlight Assembler Name Role Phone Griselda Hastings Primary Care [...] Cadena Attending Provider BAILEY Gaytan Emergency Provider [phone] MD Loi Wong Jr Emergency Provider BAILEY Mota Attending Provider BAILEY Mota Attending Provider DO Griselda Hastings Primary Care Provider [phone] MD Elvi Cadena Attending Provider [phone] Trish Carney Unavailable Griselda Hastings Primary Care Provider Griselda Hastings Unavailable Tammi NORRIS, Elvi Ruiz Unavailable [phone] DEMOND CAT Attending Unavailable DEMOND CAT Admitting Unavailable KUNSGRISELDA ADRIANA Primary Care Unavailable Kuns, DO Griselda Primary Care Provider [phone] Kuns, DO Griselda Attending Provider MD Lima Joseph Attending Provider Dr. BRET HDEZ Attending Unavailable PCP, OTHER Primary Care Unavailable PCP, Other Primary Care Physician [phone] Andreas, DO Griselda Primary Care Provider BAILEY Gaytan Emergency Provider DO Rohit Agrawal Emergency Provider Darling, DO Camara Attending Provider Lilliam Cason Unavailable Andreas, DO Griselda Primary Care Provider BAILEY Gaytan Emergency Provider DO Rohit saavedra Emergency Provider Darling, DO Camara Attending Provider MD Lilliam Cason Attending Provider Ruddy Harvey Unavailable BAILEY Mota Attending Provider MD Ruddy Harvey Attending Provider Kuns, DO Griselda Primary Care Provider Kuns DO, Griselda R Primary Care Provider [phone] Kuns, DO Griselda Primary Care Provider [phone] ADDIS KHAN Attending Unavailable ADDIS KHAN Referring Unavailable KUNS, GRISELDA R Primary Care Unavailable ADDIS KHAN Attending Unavailable BORSELLINO, ADDIS R Referring Unavailable KUNS, GRISELDA R Primary Care Unavailable Andreas, Griselda Primary Care Provider MD Ruddy Harvey Attending Provider Griselda Hastings DO Primary Care Provider Griselda Hastings DO Primary Care Provider Ignacia Jack MD Unavailable [phone] AndreasDO Camara Attending Provider [phone] Griselda Hastings Primary Care Provider [phone] Tammi NORRIS, Elvi Ruiz Unavailable Griselda Hastings DO Primary Care Provider Milks PA-C, Solomon A Unavailable [phone] Milks PA-C, Solomon A Unavailable Griselda Hastings DO Primary Care Provider [phone] Darling JOSÉ, Griselda Primary Care Provider Milks PA-C, Solomon A Attending Provider Griselda Hastings DO Primary Care Provider [phone] Milks PA-C, Solomon A Attending Provider [phone] Wes NRORIS, Ruddy Moraes Attending Provider Humberto NORRIS, Daisy Driver Emergency Provider Roxy NORRIS, Andrius Vytautas Attending Unavailable Giedraitis , Andrius Vytautas Attending Unavailable Giedraitis , Andrius Vytautas Attending Unavailable Giedraitis , Andrius Vytautas Attending Unavailable Giedraitis , Andrius Vytautas Attending Unavailable Giedraitis , Andrius Vytautas Attending Unavailable Giedraitis , Andrius Vytautas Attending Unavailable Griselda Hastings DO Primary Care Provider Griselda Hastings DO Primary Care Provider [phone] Manisha Negron APRN Emergency Provider Kuns DO, Griselda Other Provider Safmarthae Manisha AVALOS Attending Provider [phone] Solomon Narayanan PA-C Attending Provider Kuns DO, Griselda R Primary Care Provider Ignacia Jack MD Unavailable Solomon Narayanan PA-C Unavailable [phone] SHIMON HEATON Referring Unavailable KUNS, GRISELDA R [...] Care Unavailable Nathanael Arango MD Attending Provider [phone] Andreas DO Griselda Attending Provider Manisha Negron Admitting Unavailable SaffleManisha Attending Unavailable Kuns, Griselda Primary Care Unavailable Kuns, Griselda Consulting Unavailable Kuns, Griselda Primary Care Unavailable MilksSolomon Admitting Unavailable MilksSolomon Attending Unavailable Kuns, Griselda Primary Care Unavailable Asaad, Imad Admitting Unavailable Asaih, Imad Attending Unavailable Manisha Negron Admitting Unavailable [...] Care Provider Lilliam Cason MD Attending Provider [phone] Elizabeth Hagan PA-C Attending Provider Nathanael Arango MD Other Provider Solomon Montez APRN Attending Provider Griselda Hastings DO Attending Provider [phone] ELVI CADENA Attending Unavailable ELVI CADENA Attending Unavailable ELVI CADENA Attending Unavailable ELVI CADENA Attending Unavailable CAMILLE HARRIS Referring Unavailable KARIME FRANCO Attending Unavailable ELVI CADENA Attending Unavailable CADENAELVI ARNOLD Attending Unavailable ELVI CADENA Attending Unavailable Unavailable Unavailable Unavailable Allergies Allergy Classification Reported Allergen(s) Allergy Type Date of Onset Reaction(s) Facility Cephalosporins (antibiotic) (1 source) Cephalexin Drug Allergy 8 [facility] (20 sources) Cephalexin; Translations: [CEPHALEXIN] Drug Allergy 8 [facility] (20 sources) Cephalexin; Translations: [Keflex] Drug Allergy rust Common [facility]ensing Other (1 source) Cephalexin; Translations: [Keflex] Drug Allergy [facility] [place] (17 sources) Keflet; Translations: [KEFLET] Propensity to adverse reactions [facility] NEGATED: Highlighted row has been ruled out! (1 source) natural latex rubber; Translations: [LATEX, NATURAL RUBBER] Drug allergy (disorder) [facility] [place] NEGATED: Highlighted row has been ruled out! (1 source) No IV Contrast Allergy.; Translations: [IV Dye, Iodine Containing] Drug allergy (disorder) [facility] [place] Medications Current Medications Medication Drug Class(es) Dates [...] 28, 2024 10:44am Start: 10-10-2023 HYDROcodone-ac etaminophen ([place]) 5-325 MG tablet 10/10/2023 Active Start: 09-05-2023 End: 04-01-2024 take 1 tablet by mouth every eight hours as needed Hydrocodone-Acetaminophen 5-325 mg table t Discontinued TAB PO Every 8 hours as needed September 05, 2023 12:00am April 01, 2024 11:01am Start: 06-04-2023 take 1 tablet by myles th once daily as needed for pain HYDROcodone-acetaminophen ([place]) 5-325 MG tablet take 1 tablet orally daily NEEDED FOR PAIN MUST LAST 30 DAYS 10/10/2023 Active Start: 12-10-2017 End: 04-29-2018 take 1 tablet by mouth every four hours Hydrocodone-Acetaminophen ([place]) 5-325 mg tablet Discontinued 1 TAB PO Q4H December 10, 2017 April 29, 2018 3:12pm End: 04-10-2024 take 1.5 tablets by mouth twice daily as needed for pain HYDROcodone-acetaminophen ([place]) 5-325 mg tablet Take 1.5 tablets by [...] Comment on above: TAKE 1 CAPSULE BY [facility] EVERY 12 HOURS FOR 10 DAYS 0.4 [...] November 17, 2024 2:16pm polyethylene glycol 3350 64034 mg powder for oral solution (1 source) [...] 01-Nov-2021 Active take 1 capsule by mo [facility] once daily at bedtime tiZANidine [...] AFTERNOON and 2 at bedtime as directed [id number] 200 actuat albuterol 0.09 mg/actuat metered dose [...] 26, 2023 12:00am May 07, 2023 9:23am [id number] Kvv-Bftx-Ilu-Asb-C (7 sources) Osmotic Laxative, Vitamin C Start: 10-10-2024 End: 10-24-2024 Epq7124-Pyg Tzj-Yvhd-Emx-Asb-C (Plenvu) 140-9-5.2 gram powder in packet, sequential Discontinued 0 PO .COMPLEX 3 October 10, 2024 12:00am October 24, 2024 11:48am PO Start: 10-10-2024 Snz7431-Eno Cantrell g-Htsi-Skk-Asb-C (Plenvu) 140-9-5.2 gram powder in packet, sequential [...] 02/27/2019 10/17/2022 Discontinued take 1 capsule by [facility] every twenty-four hours Gabapentin 100 MG 1 capsule Orally Once a day Not-Taking/PRN Comment on above: Take 1 capsule by [facility] three times daily for 30 days. gadoterate meglumine (Dotarem) 0.5 mmol/mL contrast injection 30 mL (1 source) Start: 12-13-19 End: 12-13-19 inject 30 mL intravenously once 30 mL, intravenous, Once in imaging, Starting on [facility] 12/13/23 at 0817, For 1 dose, [...] 17, 2022 9:01am take 1 tablet by [facility] three times daily at mealtime as needed [...] 02, 2023 1:48pm take 1 capsule by [facility] once daily at mealtime indomethacin SR (Indocin SR) 75 MG ER capsule indomethacin ER 75 mg capsule,extended release take 1 capsule by mouth once daily with food 0 Active take 1 capsule by [facility] every twenty-four hours Indomethacin ER 75 MG [...] Daily 09/05/2023 Active take 2 tablets by [facility] once daily lisinopril 5 mg tablet Take [...] Translations: [Atherosclerotic heart disease of [place] coronary artery without angina pectoris] Onset: 4 [...] Reference Range Facility No Panel Informationon 01-08 [facility] XR CERVICAL SPINE 2-3 VIEWSo n 12-29-2024 [...] By: Yehuda Pozo on 2024 Study report [facility] Main [address] [address] XRay Report Signed Patient: Jovani Melendez MR#: [id number] : 1960 Acct:[id number] Age/Sex: 64 / M [facility]: [facility]ending Dr: Griselda Hastings DO Copies to: [...] Jr., Ritesh 2024 4:30 PM Dictation Location: [place] [address] Transcribed By: [facility] 11/24/24 1630 Dictated By: Yung Pozo Jr, DO 11/24/24 1630 Signed By: 11/24/24 1630 [facility] XR chest 2V*on 2024 XR chest 2V* [address] [address] XRay Report Signed Patient: Jovani Melendez MR#: [id number] : 1960 Acct:[id number] Age/Sex: 64 / M ADM Date: 11/24/24 Loc: [facility] Room: Type: [facility] Attending Dr: Griselda Hastings DO Copies to: [...] Jr., Ritesh 2024 4:30 PM Dictation Location: [place] [address] Transcribed By: [facility] 11/24/24 1630 Dictated By: Yung Pozo Jr, DO 11/24/24 1630 Signed By: 11/24/24 1630 Normal [facility] Influenza virus B Ag [Presen ce] in Upper respiratory specimen by Rapid immunoassayon 11-19-2024 FLUBV Ag IA.rapid Ql (Nph) Influenza virus B Ag [Presence] in Upper respiratory specimen by Rapid immunoassay [facility] FLUBV Ag IA.rapid Ql (Nph) Negative [facility] No Panel Informationon 11-19 Influenza Type A (Rapid) Negative [facility] POC SARS CoV-2 Antigen Negative [facility] No Panel InformationOrdered By: Griselda Hastings on 11-19-2024 Quick Strep (POC) [facility] RSV (POC) [facility] CNOVSPon 11-07-2024 CNOVSP Visit (SP) Office ([place]) ----- JOVANI MELENDEZ ([id number]) 1960 M Date Time Provider Department 11/07/24 9:20 AM MEMO COLE During your visit today, we recorded the following information about you: Temperature Pulse Respiration Blood pressure 97.5 degrees 72/minute 16/minute 115/89 Weight Height 79.3 kg 1.706 m Memo Cole MD 11/07/2024 11:09 AM Signed NAME: Jovani Melendez CLINIC NO.: [id number] DATE OF SERVICE: November 07, 2024 ([place]urtis) Some elements in this clinic note that are critical to medical decision making have been carefully reviewed and included from a prior clinic note dated: November 02, 2023 (Curtis) Referring Provider: Griselda Hastings, DO Additional Clinicians involved in Jovani Melendez's care: Dr Kimberly Nichole ENT, Dr. 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 10/05/2021 - MRI Brain: [facility] There is T2 and T2 flair hyperintense [...] may represent (more content not included)... Normal [facility] No Panel InformationOrdered By: Nathanael Arango on 11-05-2024 Miscellaneous Pathology Test See comment [facility] Comment on above: See report. Scanned copy available in EMR. Pathology Request for Lab Co rpon 11-05-2024 Pathology Request for Lab Nancy Normal [facility] Comment on above: Order Comment: GI SP ECIMEN Result Comment: See report. Scanned copy available in EMR. PERFORMED BY: [place] [address] PATHOLOGIST DIRECTOR [employer] EDUARDO HOLLINGSWORTH M.D. Performed By: #### P ATH TO [facility] #### [address] Basophils Auto (Bld) [#/Vol] on 11-03-2024 Basophils (Bld) [#/Vol] Automated basophil count <0.11 [facility] Basophils (Bld) [#/Vol] 0.06 10*3/uL <0.11 [facility] Basophils/100 WBC Auto (Bld) on 11-03-2024 Basophils/100 WBC (Bld) Automated basophil % [facility] Basophils/100 WBC (Bld) 1.0 % [facility] Blood manual differential co mment interpretation narrativeon 11-03-2024 Manual differential comment Curtis (Bld) [Interp] Blood manual differential comment interpretation narrative [facility] Manual differential comment Curtis (Bld) [Interp] Auto [facility] CBC W Auto Differential pane l (Bld)on 11-03-2024 Basophils (Bld) [#/Vol] 0.06 10*3/uL [facility] Basophils/100 WBC (Bld) 1 % [facility] Differential cell count method Nom (Bld) Auto [facility] Eosinophils (Bld) [#/Vol] 0.16 10*3/uL [facility] Eosinophils/100 WBC (Bld) 2.7 % [facility] Erythrocyte distribution width (RBC) [Ratio] 14.6 % 11.5 - 15.0 % [facility] Hematocrit (Bld) [Volume fraction] 40 % 39.0 - 51.0 % [facility] Hemoglobin (Bld) [Mass/Vol] 13.6 g/dL 13.0 - 17.0 g/dL [facility] Immature granulocytes (Bld) [#/Vol] [facility] Immature granulocytes/100 WBC (Bld) 0.2 % [facility] Lymphocytes (Bld) [#/Vol] 2.73 10*3/uL [facility] Lymphocytes/100 WBC (Bld) 45.3 % [facility] MCH (RBC) [Entitic mass] 31.9 pg 26.0 - 34.0 pg [facility] MCHC (RBC) [Mass/Vol] 34 g/dL 30.5 - 36.0 g/dL [facility] MCV (RBC) [Entitic vol] 93.9 fL 80.0 - 100.0 fL [facility] Monocytes (Bld) [#/Vol] 0.4 10*3/uL [facility] Monocytes/100 WBC (Bld) 6.6 % [facility] Neutrophils (Bld) [#/Vol] 2.67 10*3/uL [facility] Neutrophils/100 WBC (Bld) 44.2 % [facility] Nucleated RBC (Bld) [#/Vol] [facility] Nucleated RBC/100 WBC (Bld) [Ratio] 0 % /100 WBC [facility] Platelet mean volume (Bld) [Entitic vol] 11 fL 9.0 - 12.7 fL [facility] Platelets (Bld) [#/Vol] 281 10*3/uL [facility] RBC (Bld) [#/Vol] 4.26 10*6/uL 4.20 - 6.00 m/uL [facility] WBC (Bld) [#/Vol] 6.03 10*3/uL [facility] Basophils (Bld) [#/Vol] 0.06 10*3/uL Normal <0.11 [facility] Comment on above: Order Comment: Speci men Type: BLOOD SPECIMEN Ordering Facility: [facility] Address: [address] [place] [address] Performed By: #### 5 7021-8 #### [facility] CLIA [id number] [address] [place] [address] Basophils/100 WBC (Bld) 1.0 % Normal [facility] Comment on above: Order Comment: Speci men Type: BLOOD SPECIMEN Ordering Facility: [facility] Address: [address] [place] [address] Performed By: #### 5 7021-8 #### [facility] CLIA [id number] [address] [place] [address] Differential cell count method Nom (Bld) Auto Normal [facility] Comment on above: Order Comment: Speci men Type: BLOOD SPECIMEN Ordering Facility: [facility] Address: [address] [place] [address] Performed By: #### 5 7021-8 #### [facility] CLIA [id number] [address] [place] [address] Eosinophils (Bld) [#/Vol] 0.16 10*3/uL Normal <0.46 [facility] Comment on above: Order Comment: Speci men Type: BLOOD SPECIMEN Ordering Facility: [facility] Address: [address] [place] [address] Performed By: #### 5 7021-8 #### [facility] CLIA [id number] [address] [place] [address] Eosinophils/100 WBC (Bld) 2.7 % Normal [facility] Comment on above: Order Comment: Speci men Type: BLOOD SPECIMEN Ordering Facility: [facility] Address: [address] [place] [address] Performed By: #### 5 7021-8 #### [facility] CLIA [id number] [address] [place] [address] Erythrocyte distribution width (RBC) [Ratio] 14.6 % Normal 11.5-15.0 [facility] Comment on above: Order Comment: Speci men Type: BLOOD SPECIMEN Ordering Facility: [facility] Address: [address] [place] [address] Performed By: #### 5 7021-8 #### [facility] CLIA [id number] [address] [place] [address] Hematocrit (Bld) [Volume fraction] 40.0 % Normal 39.0-51.0 [facility] Comment on above: Order Comment: Speci men Type: BLOOD SPECIMEN Ordering Facility: [facility] Address: [address] [place] [address] Performed By: #### 5 7021-8 #### [facility] CLIA [id number] [address] [place] [address] Hemoglobin (Bld) [Mass/Vol] 13.6 g/dL Normal 13.0-17.0 [facility] Comment on above: Order Comment: Speci men Type: BLOOD SPECIMEN Ordering Facility: [facility] Address: [address] [place] [address] Performed By: #### 5 7021-8 #### [facility] CLIA [id number] [address] [place] [address] Immature granulocytes (Bld) [#/Vol] 10*3/uL Normal <0.10 [facility] Comment on above: Order Comment: Speci men Type: BLOOD SPECIMEN Ordering Facility: [facility] Address: [address] [place] [address] Performed By: #### 5 7021-8 #### [facility] CLIA [id number] [address] [place] [address] Immature granulocytes/100 WBC (Bld) 0.2 % Normal [facility] Comment on above: Order Comment: Speci men Type: BLOOD SPECIMEN Ordering Facility: [facility] Address: [address] [place] [address] Performed By: #### 5 7021-8 #### [facility] CLIA [id number] [address] [place] [address] Lymphocytes (Bld) [#/Vol] 2.73 10*3/uL Normal 1.00-4.00 [facility] Comment on above: Order Comment: Speci men Type: BLOOD SPECIMEN Ordering Facility: [facility] Address: [address] [place] [address] Performed By: #### 5 7021-8 #### [facility] CLIA [id number] [address] [place] [address] Lymphocytes/100 WBC (Bld) 45.3 % Normal [facility] Comment on above: Order Comment: Speci men Type: BLOOD SPECIMEN Ordering Facility: [facility] Address: [address] [place] [address] Performed By: #### 5 7021-8 #### [facility] CLIA [id number] [address] [place] [address] MCH (RBC) [Entitic mass] 31.9 pg Normal 26.0-34.0 [facility] Comment on above: Order Comment: Speci men Type: BLOOD SPECIMEN Ordering Facility: [facility] Address: [address] [place] [address] Performed By: #### 5 7021-8 #### [facility] CLIA [id number] [address] [place] [address] MCHC (RBC) [Mass/Vol] 34.0 g/dL Normal 30.5-36.0 [facility] Comment on above: Order Comment: Speci men Type: BLOOD SPECIMEN Ordering Facility: [facility] Address: [address] [place] [address] Performed By: #### 5 7021-8 #### [facility] CLIA [id number] [address] [place] [address] MCV (RBC) [Entitic vol] 93.9 fL Normal 80.0-100.0 [facility] Comment on above: Order Comment: Speci men Type: BLOOD SPECIMEN Ordering Facility: [facility] Address: [address] [place] [address] Performed By: #### 5 7021-8 #### [facility] CLIA [id number] [address] [place] [address] Monocytes (Bld) [#/Vol] 0.40 10*3/uL Normal <0.87 [facility] Comment on above: Order Comment: Speci men Type: BLOOD SPECIMEN Ordering Facility: [facility] Address: [address] [place] [address] Performed By: #### 5 7021-8 #### [facility] CLIA [id number] [address] [place] [address] Monocytes/100 WBC (Bld) 6.6 % Normal [facility] Comment on above: Order Comment: Speci men Type: BLOOD SPECIMEN Ordering Facility: [facility] Address: [address] [place] [address] Performed By: #### 5 7021-8 #### [facility] CLIA [id number] [address] [place] [address] Neutrophils (Bld) [#/Vol] 2.67 10*3/uL Normal 1.45-7.50 [facility] Comment on above: Order Comment: Speci men Type: BLOOD SPECIMEN Ordering Facility: [facility] Address: [address] [place] [address] Performed By: #### 5 7021-8 #### [facility] CLIA [id number] [address] [place] [address] Neutrophils/100 WBC (Bld) 44.2 % Normal [facility] Comment on above: Order Comment: Speci men Type: BLOOD SPECIMEN Ordering Facility: [facility] Address: [address] [place] [address] Performed By: #### 5 7021-8 #### [facility] CLIA [id number] [address] [place] [address] Nucleated RBC (Bld) [#/Vol] 10*3/uL Normal <0.01 [facility] Comment on above: Order Comment: Speci men Type: BLOOD SPECIMEN Ordering Facility: [facility] Address: [address] [place] [address] Performed By: #### 5 7021-8 #### [facility] CLIA [id number] [address] [place] [address] Nucleated RBC/100 WBC (Bld) [Ratio] 0.0 /100 WBC Normal [facility] Comment on above: Order Comment: Speci men Type: BLOOD SPECIMEN Ordering Facility: [facility] Address: [address] [place] [address] Performed By: #### 5 7021-8 #### [facility] CLIA [id number] [address] [place] [address] Platelet mean volume (Bld) [Entitic vol] 11.0 fL Normal 9.0-12.7 [facility] Comment on above: Order Comment: Speci men Type: BLOOD SPECIMEN Ordering Facility: [facility] Address: [address] [place] [address] Performed By: #### 5 7021-8 #### [facility] CLIA [id number] [address] [place] [address] Platelets (Bld) [#/Vol] 281 10*3/uL Normal 150-400 [facility] Comment on above: Order Comment: Speci men Type: BLOOD SPECIMEN Ordering Facility: [facility] Address: [address] [place] [address] Performed By: #### 5 7021-8 #### [facility] CLIA [id number] [address] [place] [address] RBC (Bld) [#/Vol] 4.26 10*6/uL Normal 4.20-6.00 [facility] Comment on above: Order Comment: Speci men Type: BLOOD SPECIMEN Ordering Facility: [facility] Address: [address] [place] [address] Performed By: #### 5 7021-8 #### [facility] CLIA [id number] [address] [place] [address] WBC (Bld) [#/Vol] 6.03 10*3/uL Normal 3.70-11.00 [facility] Comment on above: Order Comment: Speci men Type: BLOOD SPECIMEN Ordering Facility: [facility] Address: [address] [place] [address] Performed By: #### 5 7021-8 #### [facility] CLIA [id number] [address] [place] [address] Hyun 11-03-2024 CNPN Telephone (HEMTSA) ----- NORAJOVANI Sheridan ([id number]) 1960 M Date Time Provider Department 11/03/24 [...] Hives Date Reviewed: 11/03/2024 Reviewed by: Elizabeth Haagn PA-C - Fully Assessed Reason for Visit: Orders [681] Primary Visit 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 0539 - CT CHEST W IVCON [...] any questions regarding this interpretation, please call [phone]. If you are unable to reach us at the number above, please feel free to contact [facility] eRadiology at [phone]. [id number] Normal [facility] CT Chest W contrast Tristin IMPRESSION: [...] any questions regarding this interpretation, please call [phone]. If you are unable to reach us at the number above, please feel free to contact [facility] at [phone]. DIVISION OF RADIOLOGY * * *Final Report* * * DATE OF EXAM: Nov 03 2024 8:41AM [facility] 0539 - CT CHEST W IVCON [...] findings. DIVISION OF RADIOLOGY Provider, Helen Emilia [facility] - 11/03/2024 * * *Final Report* * * DATE OF EXAM: Nov 03 2024 8:41AM [facility] 0539 - CT CHEST W IVCON [...] any questions regarding this interpretation, please call [phone]. If you are unable to reach us at the number above, please feel free to contact [facility] eRadiology at [phone]. [facility] CT NECK SOFT TISSUE W IVCONo n 11-03-2024 CT NECK SOFT TISSUE W IVCON * * *Final Report* * * DATE OF EXAM: Nov 03 2024 8:41AM [facility] 0013 - CT NECK SOFT TISSUE [...] evidence of abnormal lymph nodes. [email or web address] Transcribe Date/Time: Nov 03 2024 8:53A Dictated by: BENJAMIN AL MD This examination was interpreted and the report reviewed and electronically signed by: BENJAMIN AL MD on Nov 03 2024 9:01AM EST Thank you for allowing us to participate in the care of your patient. Should there be any questions regarding this interpretation, please call [phone]. If you are unable to reach us at the number above, please feel free to contact [facility] at [phone]. [id number] Normal [facility] CT Neck W contrast Tristin 05-1 IMPRESSION: Primary: Category 1. Expected post-treatment changes in the neck without evidence of recurrent disease in the primary site. Neck: Category 1. No evidence of abnormal lymph nodes. [email or web address] Transcribe Date/Time: Nov 03 2024 8:53A Dictated by: BENJAMIN AL MD This examination was interpreted and the report reviewed and electronically signed by: BENJAMIN AL MD on Nov 03 2024 9:01AM EST Thank you for allowing us to participate in the care of your patient. Should there be any questions regarding this interpretation, please call [phone]. If you are unable to reach us at the number above, please feel free to contact [facility] at [phone]. DIVISION OF RADIOLOGY * * *Final Report* * * DATE OF EXAM: Nov 03 2024 8:41AM [facility] 0013 - CT NECK SOFT TISSUE [...] Other: Not applicable. DIVISION OF RADIOLOGY Provider, [facility] - 11/03/2024 * * *Final Report* * * DATE OF EXAM: Nov 03 2024 8:41AM [facility] 0013 - CT NECK SOFT TISSUE [...] evidence of abnormal lymph nodes. [email or web address] Transcribe Date/Time: Nov 03 2024 8:53A Dictated by: BENJAMIN AL MD This examination was interpreted and the report reviewed and electronically signed by: BENJAMIN AL MD on Nov 03 2024 9:01AM EST Thank you for allowing us to participate in the care of your patient. Should there be any questions regarding this interpretation, please call [phone]. If you are unable to reach us at the number above, please feel free to contact [facility] eRadiology at [phone]. [facility] CT Neck W contrast IVOrdered By: Ccf Provider on 11-03-2024 [facility] Eosinophils/100 WBC Auto (Bl d)on 05-19-2025 Eosinophils/100 WBC (Bld) Automated eosinophil % [facility] Eosinophils/100 WBC (Bld) 2.7 % [facility] Erythrocyte distribution wid th Auto (RBC) [Ratio]on 11-03-2024 Erythrocyte distribution width (RBC) [Ratio] Erythrocyte distribution width [Ratio] by Automated count 11.5-15.0 [facility] Erythrocyte distribution width (RBC) [Ratio] 14.6 % 11.5-15.0 [facility] Hematocrit Auto (Bld) [Volum e fraction]on 11-03-2024 Hematocrit (Bld) [Volume fraction] Hematocrit [Volume Fraction] of Blood by Automated count 39.0-51.0 [facility] Hematocrit (Bld) [Volume fraction] 40.0 % 39.0-51.0 [facility] Hemoglobin [Mass/volume] in Bloodon 11-03-2024 Hemoglobin (Bld) [Mass/Vol] Hemoglobin [Mass/volume] in Blood 13.0-17.0 [facility] Hemoglobin (Bld) [Mass/Vol] 13.6 g/dL 13.0-17.0 [facility] - Hematology and Cell countson 11-03-2024 Eosinophils (Bld) [#/Vol] 0.16 10*3/uL <0.46 [facility] Immature granulocytes/100 WBC (Bld) 0.2 % [facility] Leukocytes [#/volume] correc mone for nucleated erythrocytes in Blood by Automated counon 11-03-2024 WBC corrected for nucl RBC Auto (Bld) [#/Vol] Leukocytes [#/volume] corrected for nucleated erythrocytes in Blood by Automated coun 70- [facility] WBC corrected for nucl RBC Auto (Bld) [#/Vol] 6.03 k/uL 3.70-11.00 [facility] Lymphocytes Auto (Bld) [#/Vo l]on 11-03-2024 Lymphocytes (Bld) [#/Vol] Lymphocytes [#/volume] in Blood by Automated count 1.00-4.00 [facility] Lymphocytes (Bld) [#/Vol] 2.73 10*3/uL 1.00-4.00 [facility] Lymphocytes/100 WBC Auto (Bl d)on 11-03-2024 Lymphocytes/100 WBC (Bld) Lymphocytes/100 leukocytes in Blood by Automated count [facility] Lymphocytes/100 WBC (Bld) 45.3 % [facility] MCH Auto (RBC) [Entitic mass ]on 11-03-2024 MCH (RBC) [Entitic mass] MCH [Entitic mass] by Automated count 26.0-34.0 [facility] MCH (RBC) [Entitic mass] 31.9 pg 26.0-34.0 [facility] MCHC Auto (RBC) [Mass/Vol]on 11-03-2024 MCHC (RBC) [Mass/Vol] MCHC [Mass/volume] by Automated count 30.5-36.0 [facility] MCHC (RBC) [Mass/Vol] 34.0 g/dL 30.5-36.0 [facility] MCV Auto (RBC) [Entitic vol] on 11-03-2024 MCV (RBC) [Entitic vol] MCV [Entitic volume] by Automated count 80.0-100.0 [facility] MCV (RBC) [Entitic vol] 93.9 fL 80.0-100.0 [facility] Monocytes Auto (Bld) [#/Vol] on 11-03-2024 Monocytes (Bld) [#/Vol] Automated blood monocyte count <0.87 [facility] Monocytes (Bld) [#/Vol] 0.40 10*3/uL <0.87 [facility] Monocytes/100 WBC Auto (Bld) on 11-03-2024 Monocytes/100 WBC (Bld) Automated monocyte % [facility] Monocytes/100 WBC (Bld) 6.6 % [facility] Neutrophils Auto (Bld) [#/Vo l]on 11-03-2024 Neutrophils (Bld) [#/Vol] Neutrophils [#/volume] in Blood by Automated count 1.45-7.50 [facility] Neutrophils (Bld) [#/Vol] 2.67 10*3/uL 1.45-7.50 [facility] Neutrophils/100 WBC Auto (Bl d)on 11-03-2024 Neutrophils/100 WBC (Bld) Automated neutrophil % [facility] Neutrophils/100 WBC (Bld) 44.2 % [facility] No Panel Informationon 11-03 Radiology Study observation (narrative) [facility] Immature Granulocyte # (Auto) <0.03 k/uL <0.10 [facility] Nucleated RBC Auto (Bld) [#/ Vol]on 11-03-2024 Nucleated RBC (Bld) [#/Vol] Nucleated erythrocytes [#/volume] in Blood by Automated count <0.01 [facility] Nucleated RBC (Bld) [#/Vol] 10*3/uL <0.01 [facility] Nucleated erythrocytes [Pres ence] in Blood by Automated counton 11-03-2024 Nucleated RBC Auto Ql (Bld) Nucleated erythrocytes [Presence] in Blood by Automated count [facility] Nucleated RBC Auto Ql (Bld) 0.0 /100{WBC} [facility] Platelet mean volume Auto (B ld) [Entitic vol]on 11-03-2024 Platelet mean volume (Bld) [Entitic vol] Platelet mean volume [Entitic volume] in Blood by Automated count 9.0-12.7 [facility] Platelet mean volume (Bld) [Entitic vol] 11.0 fL 9.0-12.7 [facility] Platelets Auto (Bld) [#/Vol] on 11-03-2024 Platelets (Bld) [#/Vol] Platelets [#/volume] in Blood by Automated count 150-400 [facility] Platelets (Bld) [#/Vol] 281 10*3/uL 150-400 [facility] RBC Auto (Bld) [#/Vol]on RBC (Bld) [#/Vol] Erythrocytes [#/volu me] in Blood by Automated count 4.20-6.00 [facility] RBC (Bld) [#/Vol] 4.26 10*6/uL 4.20-6.00 [facility] MR TRANSFER OF OUTSIDE FILMS on 10-21-2024 MR TRANSFER OF OUTSIDE FILMS Outside images for comparison or treatment purposes, not interpreted by Radiologists. [facility] Study Interpretation of outs jeffrey studyon 10-21-2024 Outside images for comparison or treatment purposes, not interpreted by Radiologists. IMAGING X-ray reportOrdered By: Evie Eubanks on 10-10-2024 Study report [facility] [place] [address] [place] [address] XRay Report Signed Patient: Jovani Melendez MR#: [id number] : 1960 Acct:[id number] Age/Sex: 63 / M ADM Date: 5 Loc: [facility]D [facility]: [facility]: Solomon Narayanan PA-C Copies to: [...] Eubanks M.D. 10/10/2024 3:02 PM Dictation Location: [place] [address] Transcribed By: [facility] 10/10/24 1502 Dictated By: Dorothy Eubanks MD 10/10/24 1455 Signed By: 10/10/24 1502 [facility] Work Phone: XR cervical spine 2Von 10-10 XR cervical spine 2V [facility] Main [address] [address] XRay Report Signed Patient: Jovani Melendez MR#: [id number] : 1960 Acct:[id number] Age/Sex: 63 / M ADM Date: 10/10/24 Loc: XD Room: Type: [facility] Attending Dr: Solomon Narayanan PA-C Copies [...] Eubanks M.D. 10/10/2024 3:02 PM Dictation Location: [place] [address] Transcribed By: [facility] 10/10/24 1502 Dictated By: Dorothy Eubanks MD 10/10/24 1455 Signed By: 10/10/24 1502 Normal [facility] Alanine aminotransferase [En zymatic activity/volume] in Serum or PlasmaOrdered By: Griselda Hastings on 10-07-2024 ALT [Catalytic activity/Vol] Alanine aminotransferase [Enzymatic activity/volume] in Serum or Plasma Low 7-52 [facility] Albumin [Mass/volume] in Ser um or Plasma by Bromocresol green (BCG) dye binding methoOrdered By: Griselda Hastings on 10-07-2024 Albumin BCG dye [Mass/Vol] Albumin [Mass/volume] in Serum or Plasma by Bromocresol green (BCG) dye binding metho Low 3.5-5.7 [facility] Alkaline phosphatase [Enzyma tic activity/volume] in Serum or PlasmaOrdered By: Griselda Hastings on 10-07-2024 ALP [Catalytic activity/Vol] Alkaline phosphatase [Enzymatic activity/volume] in Serum or Plasma 34-104 [facility] Aspartate aminotransferase [ Enzymatic activity/volume] in Serum or PlasmaOrdered By: Griselda Hastings on 10-07-2024 AST [Catalytic activity/Vol] Aspartate aminotransferase [Enzymatic activity/volume] in Serum or Plasma Low 13-39 [facility] Basophils Auto (Bld) [#/Vol] Ordered By: Griselda Hastings on 10-07-2024 Basophils (Bld) [#/Vol] Automated basophil count 0.0-0.2 [facility] Basophils/100 WBC Auto (Bld) Ordered By: Griselda Hastings on 10-07-2024 Basophils/100 WBC (Bld) Automated basophil % . [facility] Bilirubin.total [Mass/volume ] in Serum or PlasmaOrdered By: Griselda Hastings on 10-07-2024 Bilirubin [Mass/Vol] Bilirubin.total [Mass/volume] in Serum or Plasma 0.3-1.0 [facility] Calcium [Mass/volume] in Ser um or PlasmaOrdered By: Griselda Hastings on 10-07-2024 Calcium [Mass/Vol] Calcium [Mass/volume ] in Serum or Plasma 8.6-10.3 [facility] Carbon dioxide, total [Moles /volume] in Serum or PlasmaOrdered By: Griselda Hastings on 10-07-2024 CO2 [Moles/Vol] Carbon dioxide, tota l [Moles/volume] in Serum or Plasma 21.0-31.0 [facility] Chloride [Moles/volume] in S r[place] or PlasmaOrdered By: Griselda Hastings on 10-07-2024 Chloride [Moles/Vol] Chloride [Moles/vol ume] in Serum or Plasma 98-107 [facility] Cholesterol [Mass/volume] in Serum or PlasmaOrdered By: Griselda Hastings on 10-07-2024 Cholesterol [Mass/Vol] Cholesterol [Mass /volume] in Serum or Plasma High 140-200 [facility] Comment on above: Chol less than 200 m g/dl low riskChol 201-239 mg/dl borderline riskChol 240 mg/dl and greater high risk Cholesterol in HDL [Mass/vol ume] in Serum or PlasmaOrdered By: Griselda Hastings on 10-07-2024 Cholesterol in HDL [Mass/Vol] Serum or plasma high density lipoprotein (HDL) cholesterol measurement 23-92 [facility] Comment on above: HDL CHOL ATP-III CLA SSIFICATION Cardiovascular RiskHDL > or equal to 60 mg/dL LOWHDL < 40 mg/dL HIGH Cholesterol in LDL Calc [Mas s/Vol]Ordered By: Griselda Hastings on 10-07-2024 Cholesterol in LDL [Mass/Vol] Cholesterol in LDL [Mass/volume] in Serum or Plasma by calculation High 0-100 [facility] Comment on above: LDL ATP III CLASSIFI CATIONLDL less than 100 mg/dL OptimalLDL 100-129 mg/dL Near or above optimalLDL 130-159 mg/dL Borderline highLDL 160-189 mg/dL HighLDL greater than 189 mg/dL Very high Cholesterol in VLDL Calc [Ma ss/Vol]Ordered By: Griselda Hastings on 10-07-2024 Cholesterol in VLDL [Mass/Vol] Cholesterol in VLDL [Mass/volume] in Serum or Plasma by calculation [facility] Clostridioides difficile tox in B tcdB gene [Presence] in Stool by JER with probe deteOrdered By: Manisha Negron on 10-07-2024 C. difficile toxin B tcdB gene JER+probe Ql (Stl) Clostridioides difficile toxin B tcdB gene [Presence] in Stool by JER with probe dete Negative [facility] Comment on above: Testing performed by RT-PCR Clostridium Difficileon 09-17 Clostridium Difficile Negative Normal Negative [facility] Comment on above: Result Comment: Test ing performed by RT-PCR PERFORMED BY: [place] [address] PATHOLOGIST DIRECTOR [employer] RAKEL LAZARO M.D. Performed By: #### C DT #### [address] Complete Blood Count Auto Di ffon 10-07-2024 Basophils (Bld) [#/Vol] 0.0 10*3/uL Normal 0.0-0.2 [facility] Comment on above: Result Comment: PERF ORMED BY: [place] [address] PATHOLOGIST DIRECTOR [employer] RAKEL LAZARO M.D. Performed By: #### H S TROP #### [place] [address] [place] Basophils/100 WBC (Bld) 0.8 % Normal . [facility] Comment on above: Performed By: #### H S TROP #### [place] [address] [place] Eosinophils (Bld) [#/Vol] 0.0 10*3/uL Normal 0.0-0.45 [facility] Comment on above: Performed By: #### H S TROP #### [place] [address] [place] Eosinophils/100 WBC (Bld) 0.8 % Normal . [facility] Comment on above: Performed By: #### H S TROP #### [address] Erythrocyte distribution width (RBC) [Ratio] 13.7 % Normal 12.0-14.8 [facility] Comment on above: Performed By: #### H S TROP #### [address] Hematocrit (Bld) [Volume fraction] 36.6 % Low 38.8-50.0 [facility] Comment on above: Performed By: #### H S TROP #### [address] Hemoglobin (Bld) [Mass/Vol] 12.8 g/dL Low 13.0-17.0 [facility] Comment on above: Performed By: #### H S TROP #### [place] [address] [place] Lymphocytes (Bld) [#/Vol] 1.7 10*3/uL Normal 1.00-4.8 [facility] Comment on above: Performed By: #### H S TROP #### [place] [address] [place] Lymphocytes/100 WBC (Bld) 31.1 % Normal . [facility] Comment on above: Performed By: #### H S TROP #### [address] MCH (RBC) [Entitic mass] 32.4 pg Normal 27.5-35.2 [facility] Comment on above: Performed By: #### H S TROP #### [address] MCV (RBC) [Entitic vol] 92.8 fL Normal 83.5-101 [facility] Comment on above: Performed By: #### H S TROP #### [address] Mean Corpuscular HGB Conc 34.9 g/dL Normal 32.5-35.6 [facility] Comment on above: Performed By: #### H S TROP #### [address] Monocytes (Bld) [#/Vol] 0.3 10*3/uL Normal 0.0-0.8 [facility] Comment on above: Performed By: #### H S TROP #### [address] Monocytes/100 WBC (Bld) 4.9 % Normal . [facility] Comment on above: Performed By: #### H S TROP #### [address] Neutrophils (Bld) [#/Vol] 3.4 10*3/uL Normal 1.8-7.7 [facility] Comment on above: Performed By: #### H S TROP #### [address] Neutrophils/100 WBC (Bld) 62.4 % Normal . [facility] Comment on above: Performed By: #### H S TROP #### [address] NRBC% 0.0 /100{WBC} Normal 0-0.5 [facility] Comment on above: Performed By: #### H S TROP #### [address] Platelet mean volume (Bld) [Entitic vol] 8.8 fL Normal 6.6-10.1 [facility] Comment on above: Performed By: #### H S TROP #### [address] Platelets (Bld) [#/Vol] 343 10*3/uL Normal 150-450 [facility] Comment on above: Performed By: #### H S TROP #### [address] RBC (Bld) [#/Vol] 3.94 10*6/uL Normal 3.90-5.60 [facility] Comment on above: Performed By: #### H S TROP #### [address] WBC (Bld) [#/Vol] 5.5 10*3/uL Normal 4.1-10.5 [facility] Comment on above: Performed By: #### H S TROP #### [address] Comprehensive Metabolic Pane chanel 10-07-2024 Albumin [Mass/Vol] 3.4 g/dL Low 3.5-5.7 [facility] Comment on above: Performed By: #### H S TROP #### [address] Albumin/Globulin [Mass ratio] 1.8 {ratio} Normal [facility] Comment on above: Performed By: #### H S TROP #### [address] ALP [Catalytic activity/Vol] 62 U/L Normal 34-104 [facility] Comment on above: Performed By: #### H S TROP #### [address] ALT [Catalytic activity/Vol] 6 U/L Low 7-52 [facility] Comment on above: Performed By: #### H S TROP #### [address] Anion gap [Moles/Vol] 9.7 mmol/L Normal 6.0-15.0 [facility] Comment on above: Performed By: #### H S TROP #### [address] AST [Catalytic activity/Vol] 8 U/L Low 13-39 [facility] Comment on above: Performed By: #### H S TROP #### [address] Bilirubin [Mass/Vol] 0.6 mg/dL Normal 0.3-1.0 [facility] Comment on above: Performed By: #### H S TROP #### [address] Calcium [Mass/Vol] 9.3 mg/dL Normal 8.6-10.3 [facility] Comment on above: Performed By: #### H S TROP #### [place] [address] [place] Chloride [Moles/Vol] 103 mmol/L Normal 98-107 [facility] Comment on above: Performed By: #### H S TROP #### [place] [address] [place] CO2 [Moles/Vol] 29.1 mmol/L Normal 21.0-31.0 [facility] Comment on above: Performed By: #### H S TROP #### [address] Creatinine [Mass/Vol] 0.74 mg/dL Normal 0.70-1.30 [facility] Comment on above: Performed By: #### H S TROP #### [place] [address] [place] GFR/1.73 sq M.predicted MDRD (S/P/Bld) [Vol rate/Area] mL/min/{1.73_m2} Normal [facility] Comment on above: Performed By: #### H S TROP #### [place] [address] [place] Globulin (S) [Mass/Vol] 1.9 g/dL Normal [facility] Comment on above: Performed By: #### H S TROP #### [address] Glucose [Mass/Vol] 84 mg/dL Normal 70-100 [facility] Comment on above: Result Comment: [place] Glucose Reference Range is dependent on time and content of last meal. Glucose of more than 200 mg/dL in a nonstressed, ambulatory subject supports the diagnosis of Diabetes Mellitus. ADA recommended reference range Performed By: #### H S TROP #### [address] Potassium [Moles/Vol] 4.8 mmol/L Normal 3.5-5.1 [facility] Comment on above: Performed By: #### H S TROP #### [address] Protein [Mass/Vol] 5.3 g/dL Low 6.4-8.9 [facility] Comment on above: Performed By: #### H S TROP #### [address] Sodium [Moles/Vol] 137 mmol/L Normal 136-145 [facility] Comment on above: Performed By: #### H S TROP #### [address] Urea nitrogen [Mass/Vol] 7 mg/dL Normal 7-25 [facility] Comment on above: Performed By: #### H S TROP #### [place] [address] [place] Creatinine [Mass/volume] in Serum or PlasmaOrdered By: Griselda Hastings on 10-07-2024 Creatinine [Mass/Vol] Creatinine [Mass/v olume] in Serum or Plasma 0.70-1.30 [facility] Eosinophils Auto (Bld) [#/Vo l]Ordered By: Griselda Hastings on 10-07-2024 Eosinophils (Bld) [#/Vol] Automated eosinophil count 0.0-0.45 [facility] Eosinophils/100 WBC Auto (Bl d)Ordered By: Griselda Hastings on 10-07-2024 Eosinophils/100 WBC (Bld) Automated eosinophil % . [facility] Erythrocyte distribution wid th Auto (RBC) [Ratio]Ordered By: Griselda Hastings on 10-07-2024 Erythrocyte distribution width (RBC) [Ratio] Erythrocyte distribution width [Ratio] by Automated count 12.0-14.8 [facility] Globulin Calc (S) [Mass/Vol] Ordered By: Griselda Hastings on 10-07-2024 Globulin (S) [Mass/Vol] Serum globulin measurement by calculation (mass/volume) [facility] Glucose [Mass/volume] in Ser um or PlasmaOrdered By: Griselda Hastings on 10-07-2024 Glucose [Mass/Vol] Glucose [Mass/volume ] in Serum or Plasma 70-100 [facility] Comment on above: ADA recommended refe rence rangeRandom Glucose Reference Range is dependent on time and content of last meal. Glucose of more than 200 mg/dL in a nonstressed, ambulatory subject supports the diagnosis of Diabetes Mellitus. Hematocrit Auto (Bld) [Volum e fraction]Ordered By: Griselda Hastings on 10-07-2024 Hematocrit (Bld) [Volume fraction] Hematocrit [Volume Fraction] of Blood by Automated count Low 38.8-50.0 [facility] Hemoglobin [Mass/volume] in BloodOrdered By: Griselda Hastings on 10-07-2024 Hemoglobin (Bld) [Mass/Vol] Hemoglobin [Mass/volume] in Blood Low 13.0-17.0 [facility] Leukocytes [#/volume] correc mone for nucleated erythrocytes in Blood by Automated counOrdered By: Griselda Hastings on 10-07-2024 WBC corrected for nucl RBC Auto (Bld) [#/Vol] Leukocytes [#/volume] corrected for nucleated erythrocytes in Blood by Automated coun 4.1-10.5 [facility] Lipid Panelon 10-07-2024 Cholesterol [Mass/Vol] 204 mg/dL High 140-200 [facility] Comment on above: Result Comment: Chol less than 200 mg/dl low risk Chol 201-239 mg/dl borderline risk Chol 240 mg/dl and greater high risk Performed By: #### H S TROP #### [address] Cholesterol in HDL [Mass/Vol] 35 mg/dL Normal 23-92 [facility] Comment on above: Result Comment: HDL CHOL ATP-III CLASSIFICATION Cardiovascular Risk HDL > or equal to 60 mg/dL LOW HDL < 40 mg/dL HIGH Performed By: #### H S TROP #### [facility] [address] Cholesterol.total/Chol esterol in HDL [Mass ratio] 5.8 {ratio} Normal <5.0 [facility] Comment on above: Performed By: #### H S TROP #### [address] LDL Cholesterol,Calculated 145 mg/dL High 0-100 [facility] Comment on above: Result Comment: LDL ATP III CLASSIFICATION LDL less than 100 mg/dL Optimal LDL 100-129 mg/dL Near or above optimal LDL 130-159 mg/dL Borderline high LDL 160-189 mg/dL High LDL greater than 189 mg/dL Very high Performed By: #### H S TROP #### [facility] [address] Triglyceride w/Reflex 118 mg/dL Normal 0-149 [facility] Comment on above: Result Comment: TRIG ATP III CLASSIFICATION TRIG less than 150 mg/dL Normal TRIG 150-199 mg/dL Borderline high TRIG 200-500 mg/dL High TRIG greater than 500 mg/dL Very high Standard traceable to the Center for Disease Conrtrol and Prevention (CDC) test method. Performed By: #### H S TROP #### [facility] [address] VLDL CHOLESTEROL 23 mg/dL Normal [facility] Comment on above: Performed By: #### H S TROP #### [facility] [address] [place] [address] [place] Lymphocytes Auto (Bld) [#/Vo l]Ordered By: Griselda Hastings on 10-07-2024 Lymphocytes (Bld) [#/Vol] Lymphocytes [#/volume] in Blood by Automated count 1.00-4.8 [facility] Lymphocytes/100 WBC Auto (Bl d)Ordered By: Griselda Hastings on 10-07-2024 Lymphocytes/100 WBC (Bld) Lymphocytes/100 leukocytes in Blood by Automated count . [facility] MCH Auto (RBC) [Entitic mass ]Ordered By: Griselda Hastings on 10-07-2024 MCH (RBC) [Entitic mass] MCH [Entitic mass] by Automated count 27.5-35.2 [facility] MCHC Auto (RBC) [Mass/Vol]Or dered By: Griselda Hastings on 10-07-2024 MCHC (RBC) [Mass/Vol] MCHC [Mass/volume] by Automated count 32.5-35.6 [facility] MCV Auto (RBC) [Entitic vol] Ordered By: Griselda Hastings on 10-07-2024 MCV (RBC) [Entitic vol] MCV [Entitic volume] by Automated count 83.5-101 [facility] Monocytes Auto (Bld) [#/Vol] Ordered By: Griselda Hastings on 10-07-2024 Monocytes (Bld) [#/Vol] Automated blood monocyte count 0.0-0.8 [facility] Monocytes/100 WBC Auto (Bld) Ordered By: Griselda Hastings on 10-07-2024 Monocytes/100 WBC (Bld) Automated monocyte % . [facility] Neutrophils Auto (Bld) [#/Vo l]Ordered By: Griselda Hastings on 10-07-2024 Neutrophils (Bld) [#/Vol] Neutrophils [#/volume] in Blood by Automated count 1.8-7.7 [facility] Neutrophils/100 WBC Auto (Bl d)Ordered By: Griselda Hastings on 10-07-2024 Neutrophils/100 WBC (Bld) Automated neutrophil % . [facility] No Panel InformationOrdered By: Griselda Hastings on 10-07-2024 Estimated GFR (CKD-EPI) > 60.0 mL/Min [facility] Creatinine Clearance (Chem N/A [facility] Nucleated erythrocytes [Pres ence] in Blood by Automated countOrdered By: Griselda Hastings on 10-07-2024 Nucleated RBC Auto Ql (Bld) Nucleated erythrocytes [Presence] in Blood by Automated count 0-0.5 [facility] PSA Screen (Yearly Only)on 0 10-07-2024 PSA Screen (Yearly Only) 0.670 ng/mL Normal 0.000-4.00 0 [facility] Comment on above: Result Comment: Seri al tumor marker results determined by assays using different manufacturers or methods may not be comparable. [facility] farmworker grain and method: nprogressEL DXI, CHEMILUMINESCENT IMMUNOASSAY. PERFORMED BY: [place] [address] PATHOLOGIST DIRECTOR [employer] RAKEL LAZARO M.D. Performed By: #### H S TROP #### [address] Platelet mean volume Auto (B ld) [Entitic vol]Ordered By: Griselda Hastings on 10-07-2024 Platelet mean volume (Bld) [Entitic vol] Platelet mean volume [Entitic volume] in Blood by Automated count 6.6-10.1 [facility] Platelets Auto (Bld) [#/Vol] Ordered By: Griselda Hastings on 10-07-2024 Platelets (Bld) [#/Vol] Platelets [#/volume] in Blood by Automated count 150-450 [facility] Potassium [Moles/volume] in Serum or PlasmaOrdered By: Griselda Hastings on 10-07-2024 Potassium [Moles/Vol] Potassium [Moles/v olume] in Serum or Plasma 3.5-5.1 [facility] Prostate specific Ag [Mass/v olume] in Serum or PlasmaOrdered By: Griselda Hastings on 10-07-2024 Prostate specific Ag [Mass/Vol] Prostate specific Ag [Mass/volume] in Serum or Plasma 0.000-4.00 0 [facility] Comment on above: Serial tumor marker results determined by assays using different manufacturers or methods may not be comparable.[facility] farmworker grain and method:nprogressEL DXI, CHEMILUMINESCENT IMMUNOASSAY. Protein [Mass/volume] in Ser um or PlasmaOrdered By: Griselda Hastings on 10-07-2024 Protein [Mass/Vol] Protein [Mass/volume ] in Serum or Plasma Low 6.4-8.9 [facility] RBC Auto (Bld) [#/Vol]Ordere d By: Griselda Hastings on 10-07-2024 RBC (Bld) [#/Vol] Erythrocytes [#/volu me] in Blood by Automated count 3.90-5.60 [facility] Serum or plasma albumin/glob ulin mass ratioOrdered By: Griselda Hastings on 10-07-2024 Albumin/Globulin [Mass ratio] Serum or plasma albumin/globulin mass ratio [facility] Serum or plasma anion gap de terminationOrdered By: Griselda Hastings on 10-07-2024 Anion gap [Moles/Vol] Serum or plasma an ion gap determination 6.0-15.0 [facility] Serum or plasma total choles terol/high density lipoprotein (HDL) cholesterol mass ratOrdered By: Griselda Hastings on 10-07-2024 Cholesterol.total/Chol esterol in HDL [Mass ratio] Serum or plasma total cholesterol/high density lipoprotein (HDL) cholesterol mass rat <5.0 [facility] Sodium [Moles/volume] in Ser um or PlasmaOrdered By: Griselda Hastings on 10-07-2024 Sodium [Moles/Vol] Sodium [Moles/volume ] in Serum or Plasma 136-145 [facility] Thyroid Stimulating Hormoneo n 10-07-2024 TSH Qn 1.03 m[IU]/L Normal 0.45-5.33 [facility] Comment on above: Result Comment: PERF ORMED BY: [place] [address] PATHOLOGIST DIRECTOR [employer] RAKEL LAZARO M.D. Performed By: #### H S TROP #### [address] Thyrotropin [Units/volume] i n Serum or PlasmaOrdered By: Griselda Hastings on 10-07-2024 TSH Qn Thyrotropin [Units/volume] in Serum or Plasma 0.45-5.33 [facility] Triglyceride [Mass/volume] i n Serum or PlasmaOrdered By: Griselda Hastings on 10-07-2024 Triglyceride [Mass/Vol] Triglyceride [Mass/volume] in Serum or Plasma 0-149 [facility] Comment on above: TRIG ATP III CLASSIF ICATIONTRIG less than 150 mg/dL NormalTRIG 150-199 mg/dL Borderline highTRIG 200-500 mg/dL High TRIG greater than 500 mg/dL Very highStandard traceable to the Center for Disease Conrtrol and Prevention (CDC) test method. Urea nitrogen [Mass/volume] in Serum or PlasmaOrdered By: Griselda Hastings on 10-07-2024 Urea nitrogen [Mass/Vol] Urea nitrogen [Mass/volume] in Serum or Plasma 01-09 [facility] WBC Auto (Bld) [#/Vol]Ordere d By: Griselda Hastings on 10-07-2024 WBC (Bld) [#/Vol] Leukocytes [#/volume ] in Blood by Automated count 4.1-10.5 [facility] Alanine aminotransferase [En zymatic activity/volume] in Serum or PlasmaOrdered By: PROVIDER TEMP on 10-06-2024 ALT [Catalytic activity/Vol] Alanine aminotransferase [Enzymatic activity/volume] in Serum or Plasma [facility] Albumin [Mass/volume] in Ser um or Plasma by Bromocresol green (BCG) dye binding methoOrdered By: PROVIDER TEMP on 10-06-2024 Albumin BCG dye [Mass/Vol] Albumin [Mass/volume] in Serum or Plasma by Bromocresol green (BCG) dye binding metho 3.5-5.7 [facility] Alkaline phosphatase [Enzyma tic activity/volume] in Serum or PlasmaOrdered By: PROVIDER TEMP on 10-06-2024 ALP [Catalytic activity/Vol] Alkaline phosphatase [Enzymatic activity/volume] in Serum or Plasma 34-104 [facility] Appearance of UrineOrdered B y: Manisha Ngeron on 10-06-2024 Appearance (U) Urine appearance Clear [facility] Aspartate aminotransferase [ Enzymatic activity/volume] in Serum or PlasmaOrdered By: PROVIDER TEMP on 10-06-2024 AST [Catalytic activity/Vol] Aspartate aminotransferase [Enzymatic activity/volume] in Serum or Plasma Low 13-39 [facility] Bacteria [Presence] in Urine by AutomatedOrdered By: Manisha Negron on 10-06-2024 Bacteria Auto Ql (U) Bacteria [Presence] in Urine by Automated None Seen [facility] Basic Metabolic Panelon 04-2 Anion gap [Moles/Vol] 8.5 mmol/L Normal 6.0-15.0 [facility] Comment on above: Performed By: #### L IPASE, BMP, CBC, HEPATIC #### [facility] [address] Calcium [Mass/Vol] 9.5 mg/dL Normal 8.6-10.3 [facility] Comment on above: Performed By: #### L IPASE, BMP, CBC, HEPATIC #### [facility] [address] [place] [address] [place] Chloride [Moles/Vol] 104 mmol/L Normal 98-107 [facility] Comment on above: Performed By: #### L IPASE, BMP, CBC, HEPATIC #### [facility] [address] CO2 [Moles/Vol] 28.3 mmol/L Normal 21.0-31.0 [facility] Comment on above: Performed By: #### L IPASE, BMP, CBC, HEPATIC #### [facility] [address] [place] [address] [place] Creatinine [Mass/Vol] 0.82 mg/dL Normal 0.70-1.30 [facility] Comment on above: Performed By: #### L IPASE, BMP, CBC, HEPATIC #### [facility] [address] [place] [address] [place] Creatinine Clr Calc Pharmacy 91.52 Normal [facility] Comment on above: Performed By: #### L IPASE, BMP, CBC, HEPATIC #### [place] [address] [place] GFR/1.73 sq M.predicted MDRD (S/P/Bld) [Vol rate/Area] mL/min/{1.73_m2} Normal [facility] Comment on above: Performed By: #### L IPASE, BMP, CBC, HEPATIC #### [address] Glucose [Mass/Vol] 86 mg/dL Normal 70-100 [facility] Comment on above: Result Comment: [place] Glucose Reference Range is dependent on time and content of last meal. Glucose of more than 200 mg/dL in a nonstressed, ambulatory subject supports the diagnosis of Diabetes Mellitus. ADA recommended reference range Performed By: #### L IPASE, BMP, CBC, HEPATIC #### [facility] [address] Potassium [Moles/Vol] 4.8 mmol/L Normal 3.5-5.1 [facility] Comment on above: Performed By: #### L IPASE, BMP, CBC, HEPATIC #### [facility] [address] Sodium [Moles/Vol] 136 mmol/L Normal 136-145 [facility] Comment on above: Performed By: #### L IPASE, BMP, CBC, HEPATIC #### [facility] [address] Urea nitrogen [Mass/Vol] 9 mg/dL Normal 7-25 [facility] Comment on above: Performed By: #### L IPASE, BMP, CBC, HEPATIC #### [facility] [address] Basophils Auto (Bld) [#/Vol] Ordered By: PROVIDER TEMP on 10-06-2024 Basophils (Bld) [#/Vol] Automated basophil count 0.0-0.2 [facility] Basophils/100 WBC Auto (Bld) Ordered By: PROVIDER TEMP on 10-06-2024 Basophils/100 WBC (Bld) Automated basophil % . [facility] Bilirubin Test strip Ql (U)O rdered By: Manisha Negron on 10-06-2024 Bilirubin Ql (U) Bilirubin.total [Presence] in Urine by Test strip Negative [facility] Bilirubin.direct [Mass/volum e] in Serum or PlasmaOrdered By: PROVIDER TEMP on 10-06-2024 Bilirubin.direct [Mass/Vol] Bilirubin.direct [Mass/volume] in Serum or Plasma 0.03-0.18 [facility] Bilirubin.total [Mass/volume ] in Serum or PlasmaOrdered By: PROVIDER TEMP on 10-06-2024 Bilirubin [Mass/Vol] Bilirubin.total [Mass/volume] in Serum or Plasma 0.3-1.[address] [facility] CT abdomen pelvis w conon CT abdomen pelvis w con [facility] [place] [address] [place] [address] CT Scan Report Signed Patient: Jovani Melendez MR#: [id number] : 1960 Acct:[id number] Age/Sex: 63 / M ADM Date: 10/06/24 Loc: ER Room: Type: [facility] ER Attending Dr: Copies to: Manisha [...] Dorothy Eubanks M.D.10/06/2024 4:08 PM Dictation Location: [place] [address] Transcribed By: MARISA 10/06/24 1608 Dictated By: Dorothy Eubanks MD 10/06/24 1556 Signed By: 10/06/24 1608 Normal [facility] CT soft tissue neck w conon 10-06-2024 CT soft tissue neck w [facility] [place] [address] [place] [address] CT Scan Report Signed Patient: Jovani Melendez MR#: [id number] : 1960 Acct:[id number] Age/Sex: 63 / M ADM Date: 10/06/24 Loc: ER Room: Type: [facility] ER Attending Dr: Copies to: Manisha [...] Dorothy Eubanks M.D.10/06/2024 3:56 PM Dictation Location: [place] [address] Transcribed By: [facility] 10/06/24 155 Dictated By: Dorothy Eubanks MD 10/06/24 155 Signed By: 10/06/241555 Normal [facility] Calcium [Mass/volume] in Ser um or PlasmaOrdered By: PROVIDER TEMP on 10-06-2024 Calcium [Mass/Vol] Calcium [Mass/volume ] in Serum or Plasma 8.6-10.3 [facility] Carbon dioxide, total [Moles /volume] in Serum or PlasmaOrdered By: PROVIDER TEMP on 10-06-2024 CO2 [Moles/Vol] Carbon dioxide, tota l [Moles/volume] in Serum or Plasma 21.0-31.0 [facility] Chloride [Moles/volume] in [place] r[place] or PlasmaOrdered By: PROVIDER TEMP on 10-06-2024 Chloride [Moles/Vol] Chloride [Moles/vol ume] in Serum or Plasma 98-107 [facility] Color Auto (U)Ordered By: Braeden Negron on 10-06-2024 Color (U) Color of Urine by Auto Yellow [facility] Complete Blood Count Auto Di ffon 10-06-2024 Basophils (Bld) [#/Vol] 0.1 10*3/uL Normal 0.0-0.2 [facility] Comment on above: Result Comment: PERF ORMED BY: [place] [address] PATHOLOGIST DIRECTOR [employer] RAKEL LAZARO M.D. Performed By: #### L IPASE, BMP, CBC, HEPATIC #### [place] [address] [place] Basophils/100 WBC (Bld) 1.1 % Normal . [facility] Comment on above: Performed By: #### L IPASE, BMP, CBC, HEPATIC #### [address] Eosinophils (Bld) [#/Vol] 0.1 10*3/uL Normal 0.0-0.45 [facility] Comment on above: Performed By: #### L IPASE, BMP, CBC, HEPATIC #### [address] Eosinophils/100 WBC (Bld) 0.9 % Normal . [facility] Comment on above: Performed By: #### L IPASE, BMP, CBC, HEPATIC #### [address] Erythrocyte distribution width (RBC) [Ratio] 13.7 % Normal 12.0-14.8 [facility] Comment on above: Performed By: #### L IPASE, BMP, CBC, HEPATIC #### [address] Hematocrit (Bld) [Volume fraction] 37.0 % Low 38.8-50.0 [facility] Comment on above: Performed By: #### L IPASE, BMP, CBC, HEPATIC #### [address] Hemoglobin (Bld) [Mass/Vol] 12.8 g/dL Low 13.0-17.0 [facility] Comment on above: Performed By: #### L IPASE, BMP, CBC, HEPATIC #### [place] [address] [place] Lymphocytes (Bld) [#/Vol] 2.0 10*3/uL Normal 1.00-4.8 [facility] Comment on above: Performed By: #### L IPASE, BMP, CBC, HEPATIC #### [address] Lymphocytes/100 WBC (Bld) 28.2 % Normal . [facility] Comment on above: Performed By: #### L IPASE, BMP, CBC, HEPATIC #### [address] MCH (RBC) [Entitic mass] 32.0 pg Normal 27.5-35.2 [facility] Comment on above: Performed By: #### L IPASE, BMP, CBC, HEPATIC #### [address] MCV (RBC) [Entitic vol] 92.6 fL Normal 83.5-101 [facility] Comment on above: Performed By: #### L IPASE, BMP, CBC, HEPATIC #### [address] Mean Corpuscular HGB Conc 34.6 g/dL Normal 32.5-35.6 [facility] Comment on above: Performed By: #### L IPASE, BMP, CBC, HEPATIC #### [address] Monocytes (Bld) [#/Vol] 0.4 10*3/uL Normal 0.0-0.8 [facility] Comment on above: Performed By: #### L IPASE, BMP, CBC, HEPATIC #### [address] Monocytes/100 WBC (Bld) 17.04 % Normal 0.00-20.00 [facility] Comment on above: Performed By: #### L IPASE, BMP, CBC, HEPATIC #### [address] Monocytes/100 WBC (Bld) 5.4 % Normal . [facility] Comment on above: Performed By: #### L IPASE, BMP, CBC, HEPATIC #### [address] Neutrophils (Bld) [#/Vol] 4.7 10*3/uL Normal 1.8-7.7 [facility] Comment on above: Performed By: #### L IPASE, BMP, CBC, HEPATIC #### [address] Neutrophils/100 WBC (Bld) 64.4 % Normal . [facility] Comment on above: Performed By: #### L IPASE, BMP, CBC, HEPATIC #### [facility] [address] NRBC% 0.1 /100{WBC} Normal 0-0.5 [facility] Comment on above: Performed By: #### L IPASE, BMP, CBC, HEPATIC #### [facility] [address] Platelet mean volume (Bld) [Entitic vol] 8.4 fL Normal 6.6-10.1 [facility] Comment on above: Performed By: #### L IPASE, BMP, CBC, HEPATIC #### [address] Platelets (Bld) [#/Vol] 357 10*3/uL Normal 150-450 [facility] Comment on above: Performed By: #### L IPASE, BMP, CBC, HEPATIC #### [facility] [address] RBC (Bld) [#/Vol] 3.99 10*6/uL Normal 3.90-5.60 [facility] Comment on above: Performed By: #### L IPASE, BMP, CBC, HEPATIC #### [address] WBC (Bld) [#/Vol] 7.2 10*3/uL Normal 4.1-10.5 [facility] Comment on above: Performed By: #### L IPASE, BMP, CBC, HEPATIC #### [address] Creatinine [Mass/volume] in Serum or PlasmaOrdered By: PROVIDER TEMP on 10-06-2024 Creatinine [Mass/Vol] Creatinine [Mass/v olume] in Serum or Plasma 0.70-1.30 [facility] Dipstick and Microscopicon 0 10-06-2024 Appearance (U) Clear Normal Clear [facility] Comment on above: Order Comment: Name Collection Type:: Clean-Voided Midstream Performed By: #### L IPASE, BMP, CBC, HEPATIC #### [facility] [address] [place] [address] [place] Bacteria,Urine None Seen Normal None Seen [facility] Comment on above: Order Comment: Name Collection Type:: Clean-Voided Midstream Performed By: #### L IPASE, BMP, CBC, HEPATIC #### [facility] [address] [place] [address] [place] Bilirubin,Urine Negative Normal Negative [facility] Comment on above: Order Comment: Name Collection Type:: Clean-Voided Midstream Performed By: #### L IPASE, BMP, CBC, HEPATIC #### [facility] [address] Color (U) Yellow Normal Yellow [facility] Comment on above: Order Comment: Name Collection Type:: Clean-Voided Midstream Performed By: #### L IPASE, BMP, CBC, HEPATIC #### [address] Glucose Ql (U) Normal Normal Normal [facility] Comment on above: Order Comment: Name Collection Type:: Clean-Voided Midstream Performed By: #### L IPASE, BMP, CBC, HEPATIC #### [address] Hyaline Casts,Urine None Normal 0-8 [facility] Comment on above: Order Comment: Name Collection Type:: Clean-Voided Midstream Performed By: #### L IPASE, BMP, CBC, HEPATIC #### [facility] [address] [place] [address] [place] Ketones Ql (U) Negative Normal Negative [facility] Comment on above: Order Comment: Name Collection Type:: Clean-Voided Midstream Performed By: #### L IPASE, BMP, CBC, HEPATIC #### [address] Leukocyte esterase Test strip Ql (U) Negative Normal Negative [facility] Comment on above: Order Comment: Name Collection Type:: Clean-Voided Midstream Performed By: #### L IPASE, BMP, CBC, HEPATIC #### [place] [address] [place] Mucus,Urine Rare Normal [facility] Comment on above: Order Comment: Name Collection Type:: Clean-Voided Midstream Result Comment: PERF ORMED BY: [place] [address] PATHOLOGIST DIRECTOR [employer] RAKEL LAZARO M.D. Performed By: #### L IPASE, BMP, CBC, HEPATIC #### [place] [address] [place] Nitrite,Urine Negative Normal Negative [facility] Comment on above: Order Comment: Name Collection Type:: Clean-Voided Midstream Performed By: #### L IPASE, BMP, CBC, HEPATIC #### [place] [id number] [place] Occult Blood,Urine Trace High Negative [facility] Comment on above: Order Comment: Name Collection Type:: Clean-Voided Midstream Result Comment: PERF ORMED BY: [place] [address] PATHOLOGIST DIRECTOR [employer] RAKEL LAZARO M.D. Performed By: #### L IPASE, BMP, CBC, HEPATIC #### [place] [id number] [place] pH (U) 5.5 [pH] Normal 5.0-9.0 [facility] Comment on above: Order Comment: Name Collection Type:: Clean-Voided Midstream Performed By: #### L IPASE, BMP, CBC, HEPATIC #### [place] [id number] [place] Protein,Urine Negative Normal Negative [facility] Comment on above: Order Comment: Name Collection Type:: Clean-Voided Midstream Performed By: #### L IPASE, BMP, CBC, HEPATIC #### [place] [id number] [place] RBC,Urine 1-2 Normal 0-4 [facility] Comment on above: Order Comment: Name Collection Type:: Clean-Voided Midstream Performed By: #### L IPASE, BMP, CBC, HEPATIC #### [address] Specificy [place],Urine >1.050 High 1.001-1.03 0 [facility] Comment on above: Order Comment: Name Collection Type:: Clean-Voided Midstream Performed By: #### L IPASE, BMP, CBC, HEPATIC #### [address] Squamous Epithelial Cell,Urine 1-2 Normal 0-2 [facility] Comment on above: Order Comment: Name Collection Type:: Clean-Voided Midstream Performed By: #### L IPASE, BMP, CBC, HEPATIC #### [address] Urobilinogen,Urine Normal Normal Normal [facility] Comment on above: Order Comment: Name Collection Type:: Clean-Voided Midstream Performed By: #### L IPASE, BMP, CBC, HEPATIC #### [address] WBC,Urine 1-2 Normal 0-4 [facility] Comment on above: Order Comment: Name Collection Type:: Clean-Voided Midstream Performed By: #### L IPASE, BMP, CBC, HEPATIC #### [address] ECG 12 lead ECGon 10-06-2024 ECG 12 lead ECG [facility] [place] [address] [place] [address] Electrocardiograph Report Signed Patient: Jovani Melendez MR#: [id number] : 1960 Acct:[id number] Age/Sex: 63 / M ADM Date: 10/06/24 Loc: ER Room: Type: [facility] ER Attending Dr: Ordering Provider: Manisha Negron [...] now present Confirmed by Duke Kaufman DO ([id number]) on 10/06/2024 7:36:01 PM Referred By: Electronically Signed By: Duke Kaufman DO Transcribed By: MUS Signed By Duke Kaufman DO 5 1936 Normal [facility] Eosinophils Auto (Bld) [#/Vo l]Ordered By: PROVIDER TEMP on 10-06-2024 Eosinophils (Bld) [#/Vol] Automated eosinophil count 0.0-0.45 [facility] Eosinophils/100 WBC Auto (Bl d)Ordered By: PROVIDER TEMP on 10-06-2024 Eosinophils/100 WBC (Bld) Automated eosinophil % . [facility] Epithelial cells.squamous [# /area] in Urine sediment by Automated countOrdered By: Manisha Negron on 10-06-2024 Epithelial cells.squamous Auto (Urine sed) [#/Area] Epithelial cells.squamous [#/area] in Urine sediment by Automated count 0-2 [facility] Erythrocyte distribution wid th Auto (RBC) [Ratio]Ordered By: PROVIDER TEMP on 10-06-2024 Erythrocyte distribution width (RBC) [Ratio] Erythrocyte distribution width [Ratio] by Automated count 12.0-14.8 [facility] Erythrocytes [#/area] in Uri ne sediment by Automated countOrdered By: Manisha Negron on 10-06-2024 RBC Auto (Urine sed) [#/Area] Erythrocytes [#/area] in Urine sediment by Automated count 0-4 [facility] Globulin Calc (S) [Mass/Vol] Ordered By: PROVIDER TEMP on 10-06-2024 Globulin (S) [Mass/Vol] Serum globulin measurement by calculation (mass/volume) [facility] Glucose [Mass/volume] in Ser um or PlasmaOrdered By: PROVIDER TEMP on 10-06-2024 Glucose [Mass/Vol] Glucose [Mass/volume ] in Serum or Plasma 70-100 [facility] Comment on above: ADA recommended refe [...] [Mass/volume] in Urine by Test strip Normal [facility] Hematocrit Auto (Bld) [Volum e fraction]Ordered By: PROVIDER TEMP on 10-06-2024 Hematocrit (Bld) [Volume fraction] Hematocrit [Volume Fraction] of Blood by Automated count Low 38.8-50.0 [facility] Hemoglobin Test strip Ql (U) Ordered By: Manisha Negron on 10-06-2024 Hemoglobin Ql (U) Hemoglobin [Presence ] in Urine by Test strip High Negative [facility] Hemoglobin [Mass/volume] in BloodOrdered By: PROVIDER TEMP on 10-06-2024 Hemoglobin (Bld) [Mass/Vol] Hemoglobin [Mass/volume] in Blood Low 13.0-17.0 [facility] Hepatic Panelon 10-06-2024 Albumin [Mass/Vol] 3.6 g/dL Normal 3.5-5.7 [facility] Comment on above: Performed By: #### L IPASE, BMP, CBC, HEPATIC #### [facility] [address] [place] [address] [place] Albumin/Globulin [Mass ratio] 1.4 {ratio} Normal [facility] Comment on above: Performed By: #### L IPASE, BMP, CBC, HEPATIC #### [facility] [address] [place] [id number] [place] ALP [Catalytic activity/Vol] 63 U/L Normal 34-104 [facility] Comment on above: Performed By: #### L IPASE, BMP, CBC, HEPATIC #### [facility] [address] [place] [id number] [place] ALT [Catalytic activity/Vol] 7 U/L Normal 7-52 [facility] Comment on above: Performed By: #### L IPASE, BMP, CBC, HEPATIC #### [facility] [address] AST [Catalytic activity/Vol] 8 U/L Low 13-39 [facility] Comment on above: Performed By: #### L IPASE, BMP, CBC, HEPATIC #### [facility] [address] Bilirubin [Mass/Vol] 0.6 mg/dL Normal 0.3-1.0 [facility] Comment on above: Performed By: #### L IPASE, BMP, CBC, HEPATIC #### [facility] [address] Bilirubin,Indirect 0.5 mg/dL Normal [facility] Comment on above: Performed By: #### L IPASE, BMP, CBC, HEPATIC #### [facility] [address] Bilirubin.indirect [Mass/Vol] 0.10 mg/dL Normal 0.03-0.18 [facility] Comment on above: Performed By: #### L IPASE, BMP, CBC, HEPATIC #### [facility] [address] Globulin (S) [Mass/Vol] 2.5 g/dL Normal [facility] Comment on above: Performed By: #### L IPASE, BMP, CBC, HEPATIC #### [facility] [address] Protein [Mass/Vol] 6.1 g/dL Low 6.4-8.9 [facility] Comment on above: Performed By: #### L IPASE, BMP, CBC, HEPATIC #### [facility] [address] [place] [address] [place] Hyaline casts [#/area] in Ur ine sediment by Automated countOrdered By: Manisha Negron on 10-06-2024 Hyaline casts Auto (Urine sed) [#/Area] Hyaline casts [#/area] in Urine sediment by Automated count 0-8 [facility] Ketones Test strip Ql (U)Ord ered By: Manisha Negorn on 10-06-2024 Ketones Ql (U) Ketones [Presence] i n Urine by Test strip Negative [facility] Leukocyte esterase [Presence ] in Urine by Test stripOrdered By: Manisha Negron on 10-06-2024 Leukocyte esterase Test strip Ql (U) Leukocyte esterase [Presence] in Urine by Test strip Negative [facility] Leukocytes [#/area] in Urine sediment by Automated countOrdered By: Manisha Negron on 10-06-2024 WBC Auto (Urine sed) [#/Area] Leukocytes [#/area] in Urine sediment by Automated count 0-4 [facility] Leukocytes [#/volume] correc mone for nucleated erythrocytes in Blood by Automated counOrdered By: PROVIDER TEMP on 10-06-2024 WBC corrected for nucl RBC Auto (Bld) [#/Vol] Leukocytes [#/volume] corrected for nucleated erythrocytes in Blood by Automated coun 4.1-10.5 [facility] Lipaseon 10-06-2024 Lipase [Catalytic activity/Vol] 11.0 U/L Normal 11.0-82.0 [facility] Comment on above: Result Comment: PERF ORMED BY: [place] [address] PATHOLOGIST DIRECTOR [employer] RAKEL LAZARO M.D. Performed By: #### L IPASE, BMP, CBC, HEPATIC #### [place] [address] [place] Lipase [Enzymatic activity/v olume] in Serum or PlasmaOrdered By: PROVIDER TEMP on 10-06-2024 Lipase [Catalytic activity/Vol] Lipase [Enzymatic activity/volume] in Serum or Plasma 11.0-82.0 [facility] Lymphocytes Auto (Bld) [#/Vo l]Ordered By: PROVIDER TEMP on 10-06-2024 Lymphocytes (Bld) [#/Vol] Lymphocytes [#/volume] in Blood by Automated count 1.00-4.8 [facility] Lymphocytes/100 WBC Auto (Bl d)Ordered By: PROVIDER TEMP on 10-06-2024 Lymphocytes/100 WBC (Bld) Lymphocytes/100 leukocytes in Blood by Automated count . [facility] MCH Auto (RBC) [Entitic mass ]Ordered By: PROVIDER TEMP on 10-06-2024 MCH (RBC) [Entitic mass] MCH [Entitic mass] by Automated count 27.5-35.2 [facility] MCHC Auto (RBC) [Mass/Vol]Or dered By: PROVIDER TEMP on 10-06-2024 MCHC (RBC) [Mass/Vol] MCHC [Mass/volume] by Automated count 32.5-35.6 [facility] MCV Auto (RBC) [Entitic vol] Ordered By: PROVIDER TEMP on 10-06-2024 MCV (RBC) [Entitic vol] MCV [Entitic volume] by Automated count 83.5-101 [facility] Monocyte distribution width [Entitic volume] in Blood by AutomatedOrdered By: PROVIDER TEMP on 10-06-2024 Monocyte distribution width Auto (Bld) [Entitic vol] Monocyte distribution width [Entitic volume] in Blood by Automated 0.00-20.00 [facility] Monocytes Auto (Bld) [#/Vol] Ordered By: PROVIDER TEMP on 10-06-2024 Monocytes (Bld) [#/Vol] Automated blood monocyte count 0.0-0.8 [facility] Monocytes/100 WBC Auto (Bld) Ordered By: PROVIDER TEMP on 10-06-2024 Monocytes/100 WBC (Bld) Automated monocyte % . [facility] Mucus [Presence] in Urine by AutomatedOrdered By: Manisha Negron on 10-06-2024 Mucus Auto Ql (U) Mucus [Presence] in Urine by Automated [facility] Neutrophils Auto (Bld) [#/Vo l]Ordered By: PROVIDER TEMP on 10-06-2024 Neutrophils (Bld) [#/Vol] Neutrophils [#/volume] in Blood by Automated count 1.8-7.7 [facility] Neutrophils/100 WBC Auto (Bl d)Ordered By: PROVIDER TEMP on 10-06-2024 Neutrophils/100 WBC (Bld) Automated neutrophil % . [facility] Nitrite Test strip Ql (U)Ord ered By: Manisha Negron on 10-06-2024 Nitrite Ql (U) Nitrite [Presence] i n Urine by Test strip Negative [facility] No Panel InformationOrdered By: PROVIDER TEMP on 10-06-2024 Estimated GFR (CKD-EPI) > 60.0 mL/Min [facility] Creatinine Clearance (Chem 91.52 [facility] Nucleated erythrocytes [Pres ence] in Blood by Automated countOrdered By: PROVIDER TEMP on 10-06-2024 Nucleated RBC Auto Ql (Bld) Nucleated erythrocytes [Presence] in Blood by Automated count 0-0.5 [facility] Platelet mean volume Auto (B ld) [Entitic vol]Ordered By: PROVIDER TEMP on 10-06-2024 Platelet mean volume (Bld) [Entitic vol] Platelet mean volume [Entitic volume] in Blood by Automated count 6.6-10.1 [facility] Platelets Auto (Bld) [#/Vol] Ordered By: PROVIDER TEMP on 10-06-2024 Platelets (Bld) [#/Vol] Platelets [#/volume] in Blood by Automated count 150-450 [facility] Potassium [Moles/volume] in Serum or PlasmaOrdered By: PROVIDER TEMP on 10-06-2024 Potassium [Moles/Vol] Potassium [Moles/v olume] in Serum or Plasma 3.5-5.1 [facility] Protein Test strip (U) [Mass /Vol]Ordered By: Manisha Negron on 10-06-2024 Protein (U) [Mass/Vol] Protein [Mass/vol ume] in Urine by Test strip Negative [facility] Protein [Mass/volume] in Ser um or PlasmaOrdered By: PROVIDER TEMP on 10-06-2024 Protein [Mass/Vol] Protein [Mass/volume ] in Serum or Plasma Low 6.4-8.9 [facility] RBC Auto (Bld) [#/Vol]Ordere d By: PROVIDER TEMP on 10-06-2024 RBC (Bld) [#/Vol] Erythrocytes [#/volu me] in Blood by Automated count 3.90-5.60 [facility] Serum or plasma albumin/glob ulin mass ratioOrdered By: PROVIDER TEMP on 10-06-2024 Albumin/Globulin [Mass ratio] Serum or plasma albumin/globulin mass ratio [facility] Serum or plasma anion gap de terminationOrdered By: PROVIDER TEMP on 10-06-2024 Anion gap [Moles/Vol] Serum or plasma an ion gap determination 6.0-15.0 [facility] Serum or plasma non-glucuron idated bilirubin measurement (mass/volume)Ordered By: PROVIDER TEMP on 10-06-2024 Bilirubin.indirect [Mass/Vol] Serum or plasma non-glucuronidated bilirubin measurement (mass/volume) [facility] Sodium [Moles/volume] in Ser um or PlasmaOrdered By: PROVIDER TEMP on 10-06-2024 Sodium [Moles/Vol] Sodium [Moles/volume ] in Serum or Plasma 136-145 [facility] Specific gravity Test strip (U) [Rel density]Ordered By: Manisha Negron on 10-06-2024 Specific gravity (U) [Rel density] Specific gravity of Urine by Test strip High 1.001-1.03 0 [facility] Urea nitrogen [Mass/volume] in Serum or PlasmaOrdered By: PROVIDER TEMP on 10-06-2024 Urea nitrogen [Mass/Vol] Urea nitrogen [Mass/volume] in Serum or Plasma 7-25 [facility] Urobilinogen Test strip (U) [Mass/Vol]Ordered By: Manisha Negron on 10-06-2024 Urobilinogen (U) [Mass/Vol] Urobilinogen [Mass/volume] in Urine by Test strip Normal [facility] WBC Auto (Bld) [#/Vol]Ordere d By: PROVIDER TEMP on 10-06-2024 WBC (Bld) [#/Vol] Leukocytes [#/volume ] in Blood by Automated count 4.1-10.5 [facility] pH Test strip (U)Ordered By: Manisha Negron on 10-06-2024 pH (U) pH of Urine by Test strip 5.0-9.0 [facility] B-Type Natriuretic Peptideon 09-20-2024 Natriuretic peptide B (Bld) [Mass/Vol] 43.0 pg/mL Normal 5-100 [facility] Comment on above: Result Comment: PERF ORMED BY: [facility] [address] [place] [address] PATHOLOGIST DIRECTOR [employer] RAKEL LAZARO M.D. Performed By: #### H S TROP #### [address] Basic Metabolic Panelon 04-0 Anion gap [Moles/Vol] 11.2 mmol/L Normal 6.0-15.0 [facility] Comment on above: Performed By: #### C BC, BNP, BMP, HS TROP #### [address] Calcium [Mass/Vol] 9.3 mg/dL Normal 8.6-10.3 [facility] Comment on above: Performed By: #### C BC, BNP, BMP, HS TROP #### [address] Chloride [Moles/Vol] 100 mmol/L Normal 98-107 [facility] Comment on above: Performed By: #### C BC, BNP, BMP, HS TROP #### [address] CO2 [Moles/Vol] 26.0 mmol/L Normal 21.0-31.0 [facility] Comment on above: Performed By: #### C BC, BNP, BMP, HS TROP #### [address] Creatinine [Mass/Vol] 0.91 mg/dL Normal 0.70-1.30 [facility] Comment on above: Performed By: #### C BC, BNP, BMP, HS TROP #### [address] Creatinine Clr Calc Pharmacy 82.47 Normal [facility] Comment on above: Result Comment: PERF ORMED BY: [place] [address] PATHOLOGIST DIRECTOR [employer] RAKEL LAZARO M.D. Performed By: #### C BC, BNP, BMP, HS TROP #### [address] GFR/1.73 sq M.predicted MDRD (S/P/Bld) [Vol rate/Area] mL/min/{1.73_m2} Normal [facility] Comment on above: Performed By: #### C BC, BNP, BMP, HS TROP #### [address] Glucose [Mass/Vol] 100 mg/dL Normal 70-100 [facility] Comment on above: Result Comment: [facility] Glucose Reference Range is dependent on time and content of last meal. Glucose of more than 200 mg/dL in a nonstressed, ambulatory subject supports the diagnosis of Diabetes Mellitus. ADA recommended reference range Performed By: #### C BC, BNP, BMP, HS TROP #### [address] Potassium [Moles/Vol] 4.2 mmol/L Normal 3.5-5.1 [facility] Comment on above: Performed By: #### C BC, BNP, BMP, HS TROP #### [address] Sodium [Moles/Vol] 133 mmol/L Low 136-145 [facility] Comment on above: Performed By: #### C BC, BNP, BMP, HS TROP #### [address] Urea nitrogen [Mass/Vol] 18 mg/dL Normal 7-25 [facility] Comment on above: Performed By: #### C BC, BNP, BMP, HS TROP #### [place] [address] [place] Basophils Auto (Bld) [#/Vol] Ordered By: Daisy Paul on 09-20-2024 Basophils (Bld) [#/Vol] Automated basophil count 0.0-0.2 [facility] Basophils/100 WBC Auto (Bld) Ordered By: Daisy Paul on 09-20-2024 Basophils/100 WBC (Bld) Automated basophil % . [facility] BioFire Not Detectedon 09-20 BioFire Not Detected Not detected Normal Not Detecte [facility] Comment on above: Result Comment: This is a duplicate RP2.1 COVID (PCR) result to be used for statistical tracking purpose only. PERFORMED BY: [facility] [address] [place] [address] PATHOLOGIST DIRECTOR [employer] RAKEL LAZARO M.D. Performed By: #### H S TROP #### [facility] [address] [place] [address] [facility] COVID-19 Detected/Not Detect edOrdered By: Daisy Paul on 09-20-2024 SARS-CoV-2 (COVID-19) RNA JER+non-probe Ql (Nph) Not detected Not Detecte [facility] Comment on above: This is a duplicate RP2.1 COVID (PCR) result to be used for statistical tracking purpose only. Calcium [Mass/volume] in Ser um or PlasmaOrdered By: Daisy Paul on 09-20-2024 Calcium [Mass/Vol] Calcium [Mass/volume ] in Serum or Plasma 8.6-10.3 [facility] Carbon dioxide, total [Moles /volume] in Serum or PlasmaOrdered By: Daisy Paul on 09-20-2024 CO2 [Moles/Vol] Carbon dioxide, tota l [Moles/volume] in Serum or Plasma 21.0-31.0 [facility] Chloride [Moles/volume] in [place] or PlasmaOrdered By: Daisy Paul on 09-20-2024 Chloride [Moles/Vol] Chloride [Moles/vol ume] in Serum or Plasma 98-107 [facility] Complete Blood Count Auto Di ffon 09-20-2024 Basophils (Bld) [#/Vol] 0.0 10*3/uL Normal 0.0-0.2 [facility] Comment on above: Result Comment: PERF ORMED BY: [facility] [address] [place] [address] PATHOLOGIST DIRECTOR [employer] RAKEL LAZARO M.D. Performed By: #### C BC, BNP, BMP, HS TROP #### [facility] [address] [place] [address] [facility] Basophils/100 WBC (Bld) 0.5 % Normal . [facility] Comment on above: Performed By: #### C BC, BNP, BMP, HS TROP #### [address] Eosinophils (Bld) [#/Vol] 0.0 10*3/uL Normal 0.0-0.45 [facility] Comment on above: Performed By: #### C BC, BNP, BMP, HS TROP #### [address] Eosinophils/100 WBC (Bld) 0.1 % Normal . [facility] Comment on above: Performed By: #### C BC, BNP, BMP, HS TROP #### [address] Erythrocyte distribution width (RBC) [Ratio] 13.9 % Normal 12.0-14.8 [facility] Comment on above: Performed By: #### C BC, BNP, BMP, HS TROP #### [address] Hematocrit (Bld) [Volume fraction] 41.1 % Normal 38.8-50.0 [facility] Comment on above: Performed By: #### C BC, BNP, BMP, HS TROP #### [address] Hemoglobin (Bld) [Mass/Vol] 14.1 g/dL Normal 13.0-17.0 [facility] Comment on above: Performed By: #### C BC, BNP, BMP, HS TROP #### [address] Lymphocytes (Bld) [#/Vol] 1.1 10*3/uL Normal 1.00-4.8 [facility] Comment on above: Performed By: #### C BC, BNP, BMP, HS TROP #### [address] Lymphocytes/100 WBC (Bld) 11.5 % Normal . [facility] Comment on above: Performed By: #### C BC, BNP, BMP, HS TROP #### [address] MCH (RBC) [Entitic mass] 32.1 pg Normal 27.5-35.2 [facility] Comment on above: Performed By: #### C BC, BNP, BMP, HS TROP #### [address] MCV (RBC) [Entitic vol] 93.6 fL Normal 83.5-101 [facility] Comment on above: Performed By: #### C BC, BNP, BMP, HS TROP #### [address] Mean Corpuscular HGB Conc 34.3 g/dL Normal 32.5-35.6 [facility] Comment on above: Performed By: #### C BC, BNP, BMP, HS TROP #### [address] Monocytes (Bld) [#/Vol] 0.5 10*3/uL Normal 0.0-0.8 [facility] Comment on above: Performed By: #### C BC, BNP, BMP, HS TROP #### [address] Monocytes/100 WBC (Bld) 23.57 % High 0.00-20.00 [facility] Comment on above: Result Comment: For adults in ED, MDW > 20.0 may be associated with a higher risk of sepsis during the first 12 hrs of hospital admission Performed By: #### C BC, BNP, BMP, HS TROP #### [address] Monocytes/100 WBC (Bld) 5.4 % Normal . [facility] Comment on above: Performed By: #### C BC, BNP, BMP, HS TROP #### [address] Neutrophils (Bld) [#/Vol] 8.1 10*3/uL High 1.8-7.7 [facility] Comment on above: Performed By: #### C BC, BNP, BMP, HS TROP #### [address] Neutrophils/100 WBC (Bld) 82.5 % Normal . [facility] Comment on above: Performed By: #### C BC, BNP, BMP, HS TROP #### [facility] [address] NRBC% 0.1 /100{WBC} Normal 0-0.5 [facility] Comment on above: Performed By: #### C BC, BNP, BMP, HS TROP #### [facility] [address] Platelet mean volume (Bld) [Entitic vol] 8.9 fL Normal 6.6-10.1 [facility] Comment on above: Performed By: #### C BC, BNP, BMP, HS TROP #### [place] [address] [place] Platelets (Bld) [#/Vol] 215 10*3/uL Normal 150-450 [facility] Comment on above: Performed By: #### C BC, BNP, BMP, HS TROP #### [place] [address] [place] RBC (Bld) [#/Vol] 4.39 10*6/uL Normal 3.90-5.60 [facility] Comment on above: Performed By: #### C BC, BNP, BMP, HS TROP #### [place] [address] [place] WBC (Bld) [#/Vol] 9.8 10*3/uL Normal 4.1-10.5 [facility] Comment on above: Performed By: #### C BC, BNP, BMP, HS TROP #### [place] [address] [place] Creatinine [Mass/volume] in Serum or PlasmaOrdered By: Daisy Paul on 09-20-2024 Creatinine [Mass/Vol] Creatinine [Mass/v olume] in Serum or Plasma 0.70-1.30 [facility] ECG 12 lead ECGon 09-20-2024 ECG 12 lead ECG [facility] [address] [place] [address] Electrocardiograph Report Signed Patient: Jovani Melendez MR#: [id number] : 1960 Acct:[id number] Age/Sex: 63 / M ADM Date: 09/20/24 Loc: ER Room: Type: [facility] ER Attending Dr: Ordering Provider: Daisy Paul [...] complexes Nonspecific T wave abnormality Confirmed by Daisy Paul MD ([id number]) on 09/20/2024 7:46:03 PM Referred By: Electronically Signed By: Daisy Paul MD Transcribed By: MUS Signed By Daisy Paul MD 11/09 Normal [facility] Eosinophils Auto (Bld) [#/Vo l]Ordered By: Daisy Paul on 09-20-2024 Eosinophils (Bld) [#/Vol] Automated eosinophil count 0.0-0.45 [facility] Eosinophils/100 WBC Auto (Bl d)Ordered By: Daisy Paul on 09-20-2024 Eosinophils/100 WBC (Bld) Automated eosinophil % . [facility] Erythrocyte distribution wid th Auto (RBC) [Ratio]Ordered By: Daisy Paul on 09-20-2024 Erythrocyte distribution width (RBC) [Ratio] Erythrocyte distribution width [Ratio] by Automated count 12.0-14.8 [facility] Glucose [Mass/volume] in Ser um or PlasmaOrdered By: Daisy Paul on 09-20-2024 Glucose [Mass/Vol] Glucose [Mass/volume ] in Serum or Plasma 70-100 [facility] Comment on above: ADA recommended refe rence rangeRandom Glucose Reference Range is dependent on time and content of last meal. Glucose of more than 200 mg/dL in a nonstressed, ambulatory subject supports the diagnosis of Diabetes Mellitus. Hematocrit Auto (Bld) [Volum e fraction]Ordered By: Daisy Paul on 09-20-2024 Hematocrit (Bld) [Volume fraction] Hematocrit [Volume Fraction] of Blood by Automated count 38.8-50.0 [facility] Hemoglobin [Mass/volume] in BloodOrdered By: Daisy Paul on 09-20-2024 Hemoglobin (Bld) [Mass/Vol] Hemoglobin [Mass/volume] in Blood 13.0-17.0 [facility] Leukocytes [#/volume] correc mone for nucleated erythrocytes in Blood by Automated counOrdered By: Daisy Paul on 09-20-2024 WBC corrected for nucl RBC Auto (Bld) [#/Vol] Leukocytes [#/volume] corrected for nucleated erythrocytes in Blood by Automated coun 4.1-10.5 [facility] Lymphocytes Auto (Bld) [#/Vo l]Ordered By: Daisy Paul on 09-20-2024 Lymphocytes (Bld) [#/Vol] Lymphocytes [#/volume] in Blood by Automated count 1.00-4.8 [facility] Lymphocytes/100 WBC Auto (Bl d)Ordered By: Daisy Paul on 09-20-2024 Lymphocytes/100 WBC (Bld) Lymphocytes/100 leukocytes in Blood by Automated count . [facility] MCH Auto (RBC) [Entitic mass ]Ordered By: Daisy Paul on 09-20-2024 MCH (RBC) [Entitic mass] MCH [Entitic mass] by Automated count 27.5-35.2 [facility] MCHC Auto (RBC) [Mass/Vol]Or dered By: Daisy Paul on 09-20-2024 MCHC (RBC) [Mass/Vol] MCHC [Mass/volume] by Automated count 32.5-35.6 [facility] MCV Auto (RBC) [Entitic vol] Ordered By: Daisy Paul on 09-20-2024 MCV (RBC) [Entitic vol] MCV [Entitic volume] by Automated count 83.5-101 [facility] Monocyte distribution width [Entitic volume] in Blood by AutomatedOrdered By: Daisy Paul on 09-20-2024 Monocyte distribution width Auto (Bld) [Entitic vol] Monocyte distribution width [Entitic volume] in Blood by Automated High 0.00-20.00 [facility] Comment on above: For adults in ED, MD W > 20.0 may be associated with a higher risk of sepsis during the first 12 hrs of hospital admission Monocytes Auto (Bld) [#/Vol] Ordered By: Daisy Paul on 09-20-2024 Monocytes (Bld) [#/Vol] Automated blood monocyte count 0.0-0.8 [facility] Monocytes/100 WBC Auto (Bld) Ordered By: Daisy Paul on 09-20-2024 Monocytes/100 WBC (Bld) Automated monocyte % . [facility] Natriuretic peptide B [Mass/ Vol]Ordered By: Daisy Paul on 09-20-2024 Natriuretic peptide B (Bld) [Mass/Vol] BNP ser/plas 5-100 [facility] Neutrophils Auto (Bld) [#/Vo l]Ordered By: Daisy Paul on 09-20-2024 Neutrophils (Bld) [#/Vol] Neutrophils [#/volume] in Blood by Automated count High 1.8-7.7 [facility] Neutrophils/100 WBC Auto (Bl d)Ordered By: Daisy Paul on 09-20-2024 Neutrophils/100 WBC (Bld) Automated neutrophil % . [facility] No Panel InformationOrdered By: Daisy Paul on 09-20-2024 Estimated GFR (CKD-EPI) > 60.0 mL/Min [facility] Creatinine Clearance (Chem 82.47 [facility] Nucleated erythrocytes [Pres ence] in Blood by Automated countOrdered By: Daisy Paul on 09-20-2024 Nucleated RBC Auto Ql (Bld) Nucleated erythrocytes [Presence] in Blood by Automated count 0-0.5 [facility] Platelet mean volume Auto (B ld) [Entitic vol]Ordered By: Daisy Paul on 09-20-2024 Platelet mean volume (Bld) [Entitic vol] Platelet mean volume [Entitic volume] in Blood by Automated count 6.6-10.1 [facility] Platelets Auto (Bld) [#/Vol] Ordered By: Daisy Paul on 09-20-2024 Platelets (Bld) [#/Vol] Platelets [#/volume] in Blood by Automated count 150-450 [facility] Potassium [Moles/volume] in Serum or PlasmaOrdered By: Daisy Paul on 09-20-2024 Potassium [Moles/Vol] Potassium [Moles/v olume] in Serum or Plasma 3.5-5.1 [facility] RBC Auto (Bld) [#/Vol]Ordere d By: Daisy Paul on 09-20-2024 RBC (Bld) [#/Vol] Erythrocytes [#/volu me] in Blood by Automated count 3.90-5.60 [facility] Respiratory (Upper) Panel, P CRon 09-20-2024 Respiratory [...] A H3 Blank Space ---- PERFORMED BY: [address] [address] PATHOLOGIST DIRECTOR [employer] RAKEL LAZARO M.D. Normal [facility] Comment on above: Performed By: #### H S TROP #### [facility] [address] Respiratory pathogens DNA an d RNA panel - Nasopharynx by JER with non-probe detectionOrdered By: Daisy Paul on 09-20-2024 Respiratory pathogens DNA and RNA panel JER+non-probe (Nph) Respiratory pathogens DNA and RNA panel - Nasopharynx by JER with non-probe detection [facility] Serum or plasma anion gap de terminationOrdered By: Daisy Paul on 09-20-2024 Anion gap [Moles/Vol] Serum or plasma an ion gap determination 6.0-15.0 [facility] Sodium [Moles/volume] in Ser um or PlasmaOrdered By: Daisy Paul on 09-20-2024 Sodium [Moles/Vol] Sodium [Moles/volume ] in Serum or Plasma Low 136-145 [facility] Troponin I High Sensitivityo n 09-20-2024 Troponin I High Sensitivity 8 Normal 0-20 [facility] Comment on above: Result Comment: The Troponin units of report have been changed to meet the Chest Pain Accreditation requirement, element EC5.M1l2. Troponin units are changed from pg/ml to ng/L. Also, the decimal is removed and results are in whole numbers. PERFORMED BY: [place] [address] PATHOLOGIST DIRECTOR [employer] RAKEL LAZARO M.D. Performed By: #### H S TROP #### [address] Troponin I High Sensitivity 8 Normal 0-20 [facility] Comment on above: Result Comment: The Troponin units of report have been changed to meet the Chest Pain Accreditation requirement, element EC5.M1l2. Troponin units are changed from pg/ml to ng/L. Also, the decimal is removed and results are in whole numbers. PERFORMED BY: [place] [address] PATHOLOGIST DIRECTOR [employer] RAKEL LAZARO M.D. Performed By: #### C BC, BNP, BMP, HS TROP #### [address] Troponin I.cardiac [Mass/vol ume] in Serum or Plasma by Detection limit <= 0.01 ng/Ordered By: Daisy Paul on 09-20-2024 Troponin I.cardiac DL <= 0.01 ng/mL [Mass/Vol] Troponin I.cardiac [Mass/volume] in Serum or Plasma by Detection limit <= 0.01 ng/ 0-20 [facility] Comment on above: The Troponin units o f report have been changed to meet the Chest Pain Accreditation requirement, element EC5.M1l2. Troponin units are changed from pg/ml to ng/L. Also, the decimal is removed and results are in whole numbers. Urea nitrogen [Mass/volume] in Serum or PlasmaOrdered By: Daisy Paul on 09-20-2024 Urea nitrogen [Mass/Vol] Urea nitrogen [Mass/volume] in Serum or Plasma 01-09 [facility] WBC Auto (Bld) [#/Vol]Ordere d By: Daisy Paul on 09-20-2024 WBC (Bld) [#/Vol] Leukocytes [#/volume ] in Blood by Automated count 4.1-10.5 [facility] X-ray reportOrdered By: Rex Hutchins on 09-20-2024 Study report [facility] [place] [address] [place] [address] XRay Report Signed Patient: Jovani Melendez MR#: [id number] : 1960 Acct:[id number] Age/Sex: 63 / M ADM Date: 5 Loc: ER Room: Type: [facility] ER Attending Dr: Copies to: Daisy [...] Hutchins MD 09/20/241244 Signed By: 09/20/24 1247 [facility] Work Phone: XR chest 2V*on 09-20-2024 XR chest 2V* [facility] [place] [address] [place] [address] XRay Report Signed Patient: Jovani Melendez MR#: [id number] : 1960 Acct:[id number] Age/Sex: 63 / M ADM Date: 09/20/24 Loc: ER Room: Type: [facility] Attending Dr: Copies to: Daisy Paul MD [...] 09/20/241244 Signed By: 09/20/24 1247 Normal [facility] US ankle/arm indiceson 09-16 US ankle/arm indices [facility] [address] [place] [address] Ultrasound Report Signed Patient: Jovani Melendez MR#: [id number] : 1960 Acct:[id number] Age/Sex: 63 / M ADM Date: 09/11/24 [facility] Room: Type: [facility] CLI Attending Dr: Ruddy [...] Filipe Hess M.D.09/16/2024 2:46 PM Dictation Location: [place] [address] Tech: Agueda Helm Transcribed By: MARISA 09/16/24 1446 Dictated By: Filipe Hess MD 09/16/24 1445 Signed By: 09/16/24 1446 Normal [facility] X-ray reportOrdered By: Yehuda Pozo on 06-24-2024 Study report [facility] [place] [place] [address] XRay Report Signed Patient: Jovani Melendez MR#: [id number] : 1960 Acct:[id number] Age/Sex: 63 / M ADM Date: 5 Loc: XD Room: Type: [facility] CLI Attending Dr: Solomon DIETRICHC Copies [...] Pozo Jr, DO 06/24/242005 Signed By: 06/24/242007 [facility] XR cervical spine LAT/FLX/EX Ton 06-24-2024 XR cervical spine LAT/FLX/EXT [facility] [address] [place] [address] XRay Report Signed Patient: Jovani Melendez MR#: [id number] : 1960 Acct:[id number] Age/Sex: 63 / M ADM Date: 06/24/24 Loc: XD Room: Type: [facility] Attending Dr: Solomon Narayanan PA-C Copies [...] DO 06/24/242005 Signed By: 06/24/242007 Normal [facility] Basic metabolic 2000 panelon 04-10-2024 Anion gap [Moles/Vol] 14 mmol/L 10 - 2 0 mmol/L [facility] Calcium [Mass/Vol] 9 mg/dL 8.6 - 10. 6 mg/dL [facility] Chloride [Moles/Vol] 103 mmol/L 98 - 10 7 mmol/L [facility] CO2 [Moles/Vol] 26 mmol/L 21 - 32 mmol/L [facility] Creatinine [Mass/Vol] 0.86 mg/dL 0.50 - 1.30 mg/dL [facility] eGFR - PINF [facility] Comment on above: Calculations of sandra mated GFR are performed using the 2020 CKD-EPI Study Refit equation without the race variable for the IDMS-Traceable creatinine methods. https://jasn.asnjournals.org/content//ASN.87462 91864 Glucose [Mass/Vol] 159 mg/dL High 74 - 99 mg/dL [facility] Interpretation and review of laboratory results Abnormal [facility] Potassium [Moles/Vol] 4.5 mmol/L 3.5 - 5.3 mmol/L [facility] Sodium [Moles/Vol] 138 mmol/L 136 - 145 mmol/L [facility] Urea nitrogen [Mass/Vol] 14 mg/dL 6 - 23 mg/dL [facility] Anion gap [Moles/Vol] 14 mmol/L Normal 10-20 [facility] Comment on above: Performed By: #### 5 7021-8 #### TITUS Mercado ([id number]) [facility] ([facility]) [address] [place] [address] Calcium [Mass/Vol] 9.0 mg/dL Normal 8.6-10.6 [facility] Comment on above: Performed By: #### 5 7021-8 #### TITUS Mercado ([id number]) [facility] ([facility]) [address] [place] [address] Chloride [Moles/Vol] 103 mmol/L Normal 98-107 [facility] Comment on above: Performed By: #### 5 7021-8 #### TITUS Mercado ([id number]) [facility] ([facility]) [address] [place] [address] CO2 [Moles/Vol] 26 mmol/L Normal 21-32 [facility] Comment on above: Performed By: #### 5 7021-8 #### TITUS Mercado ([id number]) [facility] ([facility]) [address] [place] [address] Creatinine [Mass/Vol] 0.86 mg/dL Normal 0.50-1.30 [facility] Comment on above: Performed By: #### 5 7021-8 #### TITUS Mercado ([id number]) [facility] ([facility]) [address] [place] [address] GFR/1.73 sq M.predicted MDRD (S/P/Bld) [Vol rate/Area] mL/min/{1.73_m2} Normal >60 [facility] Comment on above: Result Comment: Calc ulations of estimated GFR are performed using the 2020 CKD-EPI Study Refit equation without the race variable for the IDMS-Traceable creatinine methods. https://jasn.asnjournals.org/content/early//ASN.25717 61527 Performed By: #### 5 7021-8 #### TITUS Mercado ([id number]) [facility] ([facility]) [address] [place] [address] Glucose [Mass/Vol] 159 mg/dL High 74-99 [facility] Comment on above: Performed By: #### 5 7021-8 #### TITUS Mercado ([id number]) [facility] ([facility]) [address] [place] [address] Potassium [Moles/Vol] 4.5 mmol/L Normal 3.5-5.3 [facility] Comment on above: Performed By: #### 5 7021-8 #### TITUS Mercado ([id number]) [facility] ([facility]) [address] [place] [address] Sodium [Moles/Vol] 138 mmol/L Normal 136-145 [facility] Comment on above: Performed By: #### 5 7021-8 #### TITUS Mercado ([id number]) [facility] ([facility]) [address] [place] [address] Urea nitrogen [Mass/Vol] 14 mg/dL Normal 6-23 [facility] Comment on above: Performed By: #### 5 7021-8 #### TITUS Mercado ([id number]) [facility] ([facility]) [address] [place], [place] [id number] CBC panel Auto (Bld)on 04-10 Erythrocyte distribution width (RBC) [Ratio] 13.3 % 11.5 - 14.5 % [facility] Hematocrit (Bld) [Volume fraction] 38 % Low 41.0 - 52.0 % [facility] Hemoglobin (Bld) [Mass/Vol] 12.9 g/dL Low 13.5 - 17.5 g/dL [facility] Interpretation and review of laboratory results Abnormal [facility] MCH (RBC) [Entitic mass] 31.9 pg 26.0 - 34.0 pg [facility] MCHC (RBC) [Mass/Vol] 33.9 g/dL 32.0 - 36.0 g/dL [facility] MCV (RBC) [Entitic vol] 94 fL 80 - 100 fL [facility] Nucleated RBC/100 WBC (Bld) [Ratio] 0 % [facility] Platelets (Bld) [#/Vol] 221 10*3/uL [facility] RBC (Bld) [#/Vol] 4.05 10*6/uL Low [facility] WBC (Bld) [#/Vol] 9.6 10*3/uL [facility] Erythrocyte distribution width (RBC) [Ratio] 13.3 % Normal 11.5-14.5 [facility] Comment on above: Performed By: #### 5 7021-8 #### TITUS Mercado (30455) [facility] ([facility]) [address] [place] [address] Hematocrit (Bld) [Volume fraction] 38.0 % Low 41.0-52.0 [facility] Comment on above: Performed By: #### 5 7021-8 #### TITUS Mercado (47711) [facility] ([facility]) [address] [place] [address] Hemoglobin (Bld) [Mass/Vol] 12.9 g/dL Low 13.5-17.5 [facility] Comment on above: Performed By: #### 5 7021-8 #### TITUS Mercado (46605) [facility] ([facility]) [address] [place] [address] MCH (RBC) [Entitic mass] 31.9 pg Normal 26.0-34.0 [facility] Comment on above: Performed By: #### 5 7021-8 #### TITUS Mercado (29263) [facility] ([facility]) [address] [place] [address] MCHC (RBC) [Mass/Vol] 33.9 g/dL Normal 32.0-36.0 [facility] Comment on above: Performed By: #### 5 7021-8 #### TITUS Mercado ([id number]) [facility] ([facility]) [address] [place] [address] MCV (RBC) [Entitic vol] 94 fL Normal 80-100 [facility] Comment on above: Performed By: #### 5 7021-8 #### TITUS Mercado ([id number]) [facility] ([facility]) [address] [place] [address] Nucleated RBC/100 WBC (Bld) [Ratio] 0.0 /100 WBCs Normal 0.0-0.0 [facility] Comment on above: Performed By: #### 5 7021-8 #### TITUS Mercado ([id number]) [facility] ([facility]) [address] [place] [address] Platelets (Bld) [#/Vol] 221 x10*3/uL Normal 150-450 [facility] Comment on above: Performed By: #### 5 7021-8 #### TITUS SCHUYLERMOTZER L ([id number]) [facility] ([facility]) [address] [place] [address] RBC (Bld) [#/Vol] 4.05 x10*6/uL Low 4.50-5.90 [facility] Comment on above: Performed By: #### 5 7021-8 #### TITUS SCHMOTZER L (65173) [facility] ([facility]) [address] [place] [address] WBC (Bld) [#/Vol] 9.6 x10*3/uL Normal 4.4-11.3 [facility] Comment on above: Performed By: #### 5 7021-8 #### TITUS SCHMOTZER L ([id number]) [facility] ([facility]) [address] [place] [address] XR CERVICAL SPINE 2-3 VIEWSo n 04-10-2024 XR CERVICAL SPINE 2-3 VIEWS Interpreted By: Shubham Eubanks, STUDY: Cervical spine dated 04/10/2024. INDICATION: Signs/Symptoms:Post surgery COMPARISON: None. ACCESSION NUMBER(S): [id number] ORDERING CLINICIAN: CAMILLE HARRIS TECHNIQUE: Two views [...] Shubham Eubanks 04/10/2024 10:05 AM Dictation workstation: [id number] [facility] Comment on above: Order Comment: Pleas e have patient upright XR Cervical spine 2 or 3 Vie wson 04-10-2024 Surgical and degener ative change as above without osseous injury evident. MACRO: None Signed by: Shubham Eubanks 04/10/2024 10:05 AM Dictation workstation: [id number] [facility] Interpreted By: Shubham Curran, STUDY: Cervical spine dated 04/10/2024. INDICATION: Signs/Symptoms:Post surgery COMPARISON: None. ACCESSION NUMBER(S): [id number] ORDERING CLINICIAN: CAMILLE HARRIS TECHNIQUE: Two views [...] INDICATION: Signs/Symptoms:Post surgery COMPARISON: None. ACCESSION NUMBER(S): [id number] ORDERING CLINICIAN: CAMILLE HARRIS TECHNIQUE: Two views [...] Shubham Eubanks 04/10/2024 10:05 AM Dictation workstation: [id number] [facility] Work Phone: Radiology Study observation (narrative) [facility] Work Phone: XR Cervical spine 2 or 3 Vie wsOrdered By: Shubham Eubanks on 04-10-2024 [facility] Work Phone: Blood type and Indirect anti body screen panel (Bld)on 04-09-2024 ABO group Nom (Bld) A [facility] Blood group antibody screen Ql Negative [facility] D Ag Ql (Bld) Positive [facility] ABO group Nom (Bld) A Normal [facility] Comment on above: Order Comment: As ne eded for scheduled for aortic, liver, cardiac, or thoracic surgery OR hgb<7.5mg/dl and no active type and screen. Performed By: #### 5 7021-8 #### TITUS Mercado ([id number]) [facility] ([facility]) [address] [place] [address] Blood group antibody screen Ql Negative [facility] Comment on above: Order Comment: As ne eded for scheduled for aortic, liver, cardiac, or thoracic surgery OR hgb<7.5mg/dl and no active type and screen. Performed By: #### 5 7021-8 #### TITUS Mercado (59651) [facility] ([facility]) [address] [place], [place] [address] D Ag Ql (Bld) Positive [facility] Comment on above: Order Comment: As ne eded for scheduled for aortic, liver, cardiac, or thoracic surgery OR hgb<7.5mg/dl and no active type and screen. Performed By: #### 5 7021-8 #### TITUS Mercado ([id number]) [facility] ([facility]) [address] [place], [place] [address] [place] FLUORO IMAGES NO CHARGEon 04-09-2024 FL FLUORO IMAGES NO CHARGE These images are not reportable by radiology and will not be interpreted by Radiologists. Normal [facility] Gas and Carbon monoxide and Electrolytes panel (BldA)on 04-09-2024 Anion gap 4 (BldA) [Moles/Vol] 8 Low [facility] Base excess Calc (Bld) [Moles/Vol] -1.9000 mmol/L -2.0 - 3.0 mmol/L [facility] Calcium.ionized (BldA) [Moles/Vol] 1.24 mmol/L 1.10 - 1.33 mmol/L [facility] Chloride (BldA) [Moles/Vol] 104 mmol/L 98 - 107 mmol/L [facility] CO2 (Bld) [Partial pressure] 46 mm[Hg] High [facility] Glucose [Mass/Vol] 132 mg/dL High 74 - 99 mg/dL [facility] HCO3 (Bld) [Moles/Vol] 24.3 mmol/L 22.0 - 26.0 mmol/L [facility] Hematocrit Est (Bld) [Volume fraction] 39 % Low 41.0 - 52.0 % [facility] Hemoglobin (Bld) [Mass/Vol] 12.9 g/dL Low 13.5 - 17.5 g/dL [facility] Inhaled oxygen concentration 44 % [facility] Interpretation and review of laboratory results Abnormal [facility] Lactate (BldA) [Moles/Vol] 0.7 mmol/L 0.4 - 2.0 mmol/L [facility] Oxygen (Bld) [Partial pressure] 156 mm[Hg] High [facility] Oxyhemoglobin (BldA) [Mass fraction] 95 % 94.0 - 98.0 % [facility] pH (Bld) 7.33 [pH] Low 7.38 - 7.42 pH [facility] Potassium (BldA) [Moles/Vol] 4.5 mmol/L 3.5 - 5.3 mmol/L [facility] Sodium (BldA) [Moles/Vol] 132 mmol/L Low 136 - 145 mmol/L [facility] Anion gap 4 (BldA) [Moles/Vol] 8 mmo/L Low 10-25 [facility] Comment on above: Performed By: #### 5 7021-8 #### TITUS Mercado ([id number]) [facility] ([facility]) [address] [place] [address] Base excess Calc (Bld) [Moles/Vol] -1.9000 mmol/L Normal -2.0-3.0 [facility] Comment on above: Performed By: #### 5 7021-8 #### TITUS Mercado (06476) [facility] ([facility]) [address] [place] [address] Calcium.ionized (BldA) [Moles/Vol] 1.24 mmol/L Normal 1.10-1.33 [facility] Comment on above: Performed By: #### 5 7021-8 #### TITUS Mercado ([id number]) [facility]) [address] [place] [address] Chloride (BldA) [Moles/Vol] 104 mmol/L Normal 98-107 [facility] Comment on above: Performed By: #### 5 7021-8 #### TITUS Mercado (83735) [facility] [facility] ([facility]) [address] [place] [address] 86252 CO2 (Bld) [Partial pressure] 46 mm Hg High 38-42 [facility] Comment on above: Performed By: #### 5 7021-8 #### TITUS Mercado ([id number]) [facility] ([facility]) [address] [place] [address] 83189 Glucose [Mass/Vol] 132 mg/dL High 74-99 [facility] Comment on above: Performed By: #### 5 7021-8 #### TITUS Mercado ([id number]) [facility] ([facility]) [address] [place] [address] 08817 HCO3 (Bld) [Moles/Vol] 24.3 mmol/L Normal 22.0-26.0 [facility] Comment on above: Performed By: #### 5 7021-8 #### TITUS SOLORZANO L ([id number]) [facility] ([facility]) [address] [place] [address] 40471 Hematocrit Est (Bld) [Volume fraction] 39.0 % Low 41.0-52.0 [facility] Comment on above: Performed By: #### 5 7021-8 #### TITUS Mercado ([id number]) [facility] ([facility]) [address] [place] [address] 80167 Hemoglobin (Bld) [Mass/Vol] 12.9 g/dL Low 13.5-17.5 [facility] Comment on above: Performed By: #### 5 7021-8 #### TITUS Mercado ([id number]) [facility] ([facility]) [address] [place] [address] 25009 Inhaled oxygen concentration 44 % Normal [facility] Comment on above: Performed By: #### 5 7021-8 #### TITUS Mercado ([id number]) [facility] ([facility]) [address] [place] [address] 71534 Lactate (BldA) [Moles/Vol] 0.7 mmol/L Normal 0.4-2.0 [facility] Comment on above: Performed By: #### 5 7021-8 #### TITUS Mercado (85961) [facility] ([facility]) [address] [place] [address] 17662 Oxygen (Bld) [Partial pressure] 156 mm Hg High 85-95 [facility] Comment on above: Performed By: #### 5 7021-8 #### TITUS Mercado ([id number]) [facility] ([facility]) [address] [place] [address] 06615 Oxyhemoglobin (BldA) [Mass fraction] 95.0 % Normal 94.0-98.0 [facility] Comment on above: Performed By: #### 5 7021-8 #### TITUS Mercado ([id number]) [facility] ([facility]) [address] [place] [address] 01799 pH (Bld) 7.33 [pH] Low 7.38-7.42 [facility] Comment on above: Performed By: #### 5 7021-8 #### TITUS Mercado ([id number]) [facility] ([facility]) [address] [place] [address] 82220 Potassium (BldA) [Moles/Vol] 4.5 mmol/L Normal 3.5-5.3 [facility] Comment on above: Performed By: #### 5 7021-8 #### TITUS Mercado ([id number]) [facility] ([facility]) [address] [place] [address] Sodium (BldA) [Moles/Vol] 132 mmol/L Low 136-145 [facility] Comment on above: Performed By: #### 5 7021-8 #### TITUS Mercado ([id number]) [facility] ([facility]) [address] [place] [address] 05346 XR tomography Unspecified monique dy regionon 04-09-2024 These images are not reportable by radiology and will not be interpreted by Radiologists. IMAGING CT TRANSFER OF OUTSIDE FILMS on 03-31-2024 CT TRANSFER OF OUTSIDE FILMS Outside images for comparison or treatment purposes, not interpreted by Radiologists. Normal [facility] Study Interpretation of outs jeffrey studyon 03-31-2024 Outside images for comparison or treatment purposes, not interpreted by Radiologists. IMAGING Blood type and Indirect anti body screen panel (Bld)on 03-26-2024 ABO group Nom (Bld) A Normal [facility] Comment on above: Performed By: #### 3 4532-2 #### TITUS Mercado ([id number]) [facility] ([facility]) [address] [place] [address] 89873 Blood group antibody screen Ql Negative [facility] Comment on above: Performed By: #### 3 4532-2 #### TITUS Mercado ([id number]) [facility] ([facility]) [address] [place] [address] 56232 D Ag Ql (Bld) Positive [facility] Comment on above: Performed By: #### 3 4532-2 #### TITUS Mercado ([id number]) [facility] ([facility]) [address] [place] [address] 07319 DEXA BONE DENSITYon 02-13-20 24 DEXA BONE DENSITY Interpreted By: Ruddy Simmons, STUDY: DEXA BONE DENSITY02/13/2024 10:50 am INDICATION: Signs/Symptoms:r/o osteoporosis, NEED AXIAL SKELETON IMAGES.. The patient is a 63 y/o year old M. ,M54.12 Radiculopathy, cervical region COMPARISON: None. ACCESSION NUMBER(S): [id number] ORDERING CLINICIAN: CAMILLE HARRIS TECHNIQUE: DEXA BONE [...] Ruddy Lopez 12/29/2024 8:09 AM Dictation workstation: [id number] [facility] DXA Skeletal system Views fo r [...] Radiculopathy, cervical region COMPARISON: None. ACCESSION NUMBER(S): [id number] ORDERING CLINICIAN: CAMILLE HARRIS FINDINGS: C-spine, 6 [...] Romulo Medrano 02/19/2024 6:35 PM Dictation workstation: [id number] [facility] Comment on above: Order Comment: Pleas e obtain with flexion and extension XR CHEST 2 VIEWSon XR CHEST 2 VIEWS Interpreted By: Romulo Hubbard, STUDY: XR CHEST 2 VIEWS; 02/13/2024 11:10 am INDICATION: Signs/Symptoms:Preop surgery 02/[address] Steven MD. ,M54.12 Radiculopathy, cervical region,M81.0 Age-related osteoporosis without current pathological fracture COMPARISON: None. ACCESSION NUMBER(S): [id number] ORDERING CLINICIAN: CAMILLE HARRIS FINDINGS: CARDIOMEDIASTINAL SILHOUETTE: Cardiomediastinal silhouette is normal in size and configuration. LUNGS: Lungs are clear. ABDOMEN: No remarkable upper abdominal findings. BONES: No acute osseous changes. IMPRESSION: 1. No evidence of acute cardiopulmonary process. MACRO: None Signed by: Romulo Medrano 02/19/2024 6:53 PM Dictation workstation: [id number] [facility] ECG 12 leadOrdered By: Shavon Rico on 02-12-2024 Atrial Rate 63 BPM [facility] Work Phone: [phone] P Austin 58 degrees [facility] Work Phone: [phone] P Offset 149 ms [facility] Work Phone: [phone] P Onset 90 ms [facility] Work Phone: [phone] VA Interval 268 ms [facility] Work Phone: [phone] Q Onset 224 ms [facility] Work Phone: [phone] QRS Count 10 beats [facility] Work Phone: QRS Duration 74 ms [facility] Work Phone: QT Interval 406 ms [facility] Work Phone: QTC Calculation(Bazett) 415 ms [facility] Work Phone: QTC Fredericia 412 ms [facility] Work Phone: R Austin -3 degrees [facility] Work Phone: T Austin 18 degrees [facility] Work Phone: T Offset 427 ms [facility] Work Phone: Ventricular Rate 63 BPM [facility] Work Phone: [facility] Work Phone: ECG 12 leadon 02-12-2024 Sinus [...] Tobi Rico ([id number]) on 02/12/2024 12:20:00 PM [facility] Work Phone: Basic metabolic 2000 panelon 02-11-2024 Anion gap [Moles/Vol] 13 mmol/L Normal 10-20 [facility] Comment on above: Performed By: #### 2 4321-2 #### TITUS Mercado ([id number]) [facility] ([facility]) [address] [place], [place] [address] Calcium [Mass/Vol] 9.6 mg/dL Normal 8.6-10.6 [facility] Comment on above: Performed By: #### 2 0931-2 #### TITUS Mercado ([id number]) [facility] ([facility]) [address] [place] [address] Chloride [Moles/Vol] 104 mmol/L Normal 98-107 [facility] Comment on above: Performed By: #### 2 4321-2 #### TITUS SOLORZANO L ([id number]) [facility] ([facility]) [address] [place] [address] CO2 [Moles/Vol] 26 mmol/L Normal 21-32 [facility] Comment on above: Performed By: #### 2 4321-2 #### TITUS Mercado ([id number]) [facility] ([facility]) [address] [place] [address] Creatinine [Mass/Vol] 0.89 mg/dL Normal 0.50-1.30 [facility] Comment on above: Performed By: #### 2 4321-2 #### TITUS Mercado ([id number]) [facility] ([facility]) [address] [place] [address] GFR/1.73 sq M.predicted MDRD (S/P/Bld) [Vol rate/Area] mL/min/{1.73_m2} Normal >60 [facility] Comment on above: Result Comment: Calc ulations of estimated GFR are performed using the 2020 CKD-EPI Study Refit equation without the race variable for the IDMS-Traceable creatinine methods. https://jasn.asnjournals.org/content/early//ASN.59327 90254 Performed By: #### 2 4321-2 #### TITUS Mercado (05267) [facility] ([facility]) [address] [place] [address] Glucose [Mass/Vol] 77 mg/dL Normal 74-99 [facility] Comment on above: Performed By: #### 2 4321-2 #### TITUS Mercado ([id number]) [facility] ([facility]) [address] [place] [address] Potassium [Moles/Vol] 4.6 mmol/L Normal 3.5-5.3 [facility] Comment on above: Performed By: #### 2 4321-2 #### TITUS Mercado (38927) [facility] ([facility]) [address] [place] [address] Sodium [Moles/Vol] 138 mmol/L Normal 136-145 [facility] Comment on above: Performed By: #### 2 4321-2 #### ITTUS Mercado ([id number]) [facility] ([facility]) [address] [place] [address] Urea nitrogen [Mass/Vol] 9 mg/dL Normal 6-23 [facility] Comment on above: Performed By: #### 2 432-2 #### TITUS Mercado ([id number]) [facility] ([facility]) [address] [place] [address] 03147 Blood type and Indirect anti body screen panel (Bld)on 02-11-2024 ABO group Nom (Bld) A Normal [facility] Comment on above: Performed By: #### 3 4532-2 #### TITUS Mercado (64927) [facility] ([facility]) [address] [place] [address] 02152 Blood group antibody screen Ql Negative [facility] Comment on above: Performed By: #### 3 453-2 #### TITUS Mercado ([id number]) [facility] ([facility]) [address] [place] [address] 88693 D Ag Ql (Bld) Positive [facility] Comment on above: Performed By: #### 3 4532-2 #### TITUS Mercado ([id number]) [facility] ([facility]) [address] [place] [address] 27143 CBC W Auto Differential pane l (Bld)on 02-11-2024 Basophils (Bld) [#/Vol] 0.04 x10*3/uL Normal 0.00-0.10 [facility] Comment on above: Performed By: #### 5 7021-8 #### TITUS Mercado (24827) [facility] ([facility]) [address] [place] [address] 03002 Basophils/100 WBC (Bld) 0.8 % Normal 0.0-2.0 [facility] Comment on above: Performed By: #### 5 7021-8 #### TITUS SOLORZANO L ([id number]) [facility] ([facility]) [address] [place] [address] 28135 Eosinophils (Bld) [#/Vol] 0.05 x10*3/uL Normal 0.00-0.70 [facility] Comment on above: Performed By: #### 5 7021-8 #### TITUS Mercado (58296) [facility] ([facility]) [address] [place] [address] 43797 Eosinophils/100 WBC (Bld) 1.0 % Normal 0.0-6.0 [facility] Comment on above: Performed By: #### 7021-8 #### TITUS Mercado ([id number]) [facility] ([facility]) [address] [place] [address] 48138 Erythrocyte distribution width (RBC) [Ratio] 13.2 % Normal 11.5-14.5 [facility] Comment on above: Performed By: #### 5 7021-8 #### TITUS Mercado ([id number]) [facility] ([facility]) [address] [place] [address] 21302 Hematocrit (Bld) [Volume fraction] 39.6 % Low 41.0-52.0 [facility] Comment on above: Performed By: #### 5 7021-8 #### TITUS SOLORZANO L ([id number]) [facility] ([facility]) [address] [place] [address] 05613 Hemoglobin (Bld) [Mass/Vol] 13.2 g/dL Low 13.5-17.5 [facility] Comment on above: Performed By: #### 5 7021-8 #### TITUS Mercado (91368) [facility] ([facility]) [address] [place] [address] Immature granulocytes (Bld) [#/Vol] 0.00 x10*3/uL Normal 0.00-0.70 [facility] Comment on above: Performed By: #### 5 7021-8 #### TITUS Mercado (95675) [facility] ([facility]) [address] [place] [address] 68705 Immature granulocytes/100 WBC (Bld) 0.0 % Normal 0.0-0.9 [facility] Comment on above: Result Comment: Dayan ture Granulocyte Count (IG) includes promyelocytes, myelocytes and metamyelocytes but does not include bands. Percent differential counts (%) should be interpreted in the context of the absolute cell counts (cells/UL). Performed By: #### 5 7021-8 #### TITUS Mercado (09982) [facility] ([facility]) [address] [place] [address] 99914 Lymphocytes (Bld) [#/Vol] 1.74 x10*3/uL Normal 1.20-4.80 [facility] Comment on above: Performed By: #### 5 7021-8 #### TITUS Mercado (50450) [facility] ([facility]) [address] [place] [address] 10509 Lymphocytes/100 WBC (Bld) 33.1 % Normal 13.0-44.0 [facility] Comment on above: Performed By: #### 5 7021-8 #### TITUS Mercado (92809) [facility] ([facility]) [address] [place] [address] 08272 MCH (RBC) [Entitic mass] 31.5 pg Normal 26.0-34.0 [facility] Comment on above: Performed By: #### 5 7021-8 #### TITUS Mercado (86953) [facility] ([facility]) [address] [place] [address] MCHC (RBC) [Mass/Vol] 33.3 g/dL Normal 32.0-36.0 [facility] Comment on above: Performed By: #### 5 7021-8 #### TITUS Mercado (86279) [facility] ([facility]) [address] [place] [address] MCV (RBC) [Entitic vol] 95 fL Normal 80-100 [facility] Comment on above: Performed By: #### 5 7021-8 #### TITUS Mercado (93851) [facility] ([facility]) [address] [place] [address] 68957 Monocytes (Bld) [#/Vol] 0.30 x10*3/uL Normal 0.10-1.00 [facility] Comment on above: Performed By: #### 5 7021-8 #### TITUS Mercado (19273) [facility] ([facility]) [address] [place] [address] 48071 Monocytes/100 WBC (Bld) 5.7 % Normal 2.0-10.0 [facility] Comment on above: Performed By: #### 5 7021-8 #### TITUS Mercado (38490) [facility] ([facility]) [address] [place] [address] 52153 Neutrophils (Bld) [#/Vol] 3.13 x10*3/uL Normal 1.20-7.70 [facility] Comment on above: Result Comment: Perc ent differential counts (%) should be interpreted in the context of the absolute cell counts (cells/uL). Performed By: #### 5 7021-8 #### TITUS Mercado ([id number]) [facility] ([facility]) [address] [place] [address] Neutrophils/100 WBC (Bld) 59.4 % Normal 40.0-80.0 [facility] Comment on above: Performed By: #### 5 7021-8 #### TITUS Mercado ([id number]) [facility] ([facility]) [address] [place] [address] 91389 Nucleated RBC/100 WBC (Bld) [Ratio] 0.0 /100 WBCs Normal 0.0-0.0 [facility] Comment on above: Performed By: #### 5 7021-8 #### TITUS Mercado ([id number]) [facility] ([facility]) [address] [place] [address] Platelets (Bld) [#/Vol] 271 x10*3/uL Normal 150-450 [facility] Comment on above: Performed By: #### 5 7021-8 #### TITUS Mercado ([id number]) [facility] ([facility]) [address] [place] [address] RBC (Bld) [#/Vol] 4.19 x10*6/uL Low 4.50-5.90 [facility] Comment on above: Performed By: #### 5 7021-8 #### TITUS Mercado (02161) [facility] ([facility]) [address] [place] [address] WBC (Bld) [#/Vol] 5.3 x10*3/uL Normal 4.4-11.3 [facility] Comment on above: Performed By: #### 5 7021-8 #### TITUS Mercado (39248) [facility] ([facility]) [address] [place] [address] ECG 12-LEADon 02-11-2024 ECG 12-LEAD Ventricular Rate 63 Atrial Rate 63 P-R Interval 268 QRS Duration 74 Q-T Interval 406 QTC Calculation(Bazett) 415 P Austin 58 R Austin -3 T Austin 18 QRS Count 10 Q Onset 224 P Onset 90 P Offset 149 T Offset 427 QTC Fredericia 412 Diagnosis Sinus rhythm with 1st degree AV block Otherwise normal ECG When compared with ECG of 30-JAN-2019 19:26, heart rate decreased Confirmed by Tobi Rico ([id number]) on 02/12/2024 12:20:00 PM Normal [facility] NICOTINE AND METABOLITES,Son 02-11-2024 Cotinine [Mass/Vol] 152 ng/mL Normal [facility] Comment on above: Performed By: #### N I+ME #### [facility]) ([id number]) [address] [place] [address] Nicotine [Mass/Vol] 6 ng/mL Normal [facility] Comment on above: Result Comment: INTE RPRETIVE [...] developed and its performance characteristics determined by [employer]. It has not been cleared or approved by the [place] Food and Drug Administration. This test was performed in a CLIA certified laboratory and is intended for clinical purposes. Performed By: [facility] [address] [place] [address] [employer]er: Benjamin Bullock MD, PhD CLIA Number: [id number] Performed By: #### N I+ME #### [facility]) ([id number]) [address] [place] [address] PT and aPTT panel Coag (PPP) on 02-11-2024 aPTT Coag (PPP) [Time] 33 s Normal 27-38 Un [facility] Comment on above: Order Comment: The A PTT is no longer used for monitoring Unfractionated Heparin Therapy. For monitoring Heparin Therapy, use the Heparin Assay. Performed By: #### 3 4529-8 #### TITUS Mercado (73689) [facility] ([facility]) [address] [place] [address] INR Coag (PPP) [Relative time] 1.0 Normal 0.9-1.1 [facility] Comment on above: Order Comment: The A PTT is no longer used for monitoring Unfractionated Heparin Therapy. For monitoring Heparin Therapy, use the Heparin Assay. Performed By: #### 3 4529-8 #### TITUS Mercado ([id number]) [facility] ([facility]) [address] [place], [place] [address] PT Coag (PPP) [Time] 11.5 s Normal 9.8-12.8 [facility] Comment on above: Order Comment: The A PTT is no longer used for monitoring Unfractionated Heparin Therapy. For monitoring Heparin Therapy, use the Heparin Assay. Performed By: #### 3 4529-8 #### TITUS Mercado (91563) [facility] ([facility]) [address] [place], [place] [address] Staphylococcus aureus.methic illin resistant isolateon 02-11-2024 MRSA isol Org specific cx Ql (Nose) Test: Staphylococcus aureus/MRSA colonization, Culture Specimen Source: Anterior Nares Specimen Type: Swab Specimen Date: 02/11/2024 150 Result Date: 02/13/2024825 Result Status: Final result Abnormal: No Resulting Lab: [facility] [address] [place], [place] [id number] CULTURE No Staphylococcus aureus isolated Normal [facility] Comment on above: Performed By: #### 5 2969-3 #### TITUS Mercado (80324) [facility] ([facility]) [address] [place] [address] 29865 Urinalysis complete W Reflex Culture panel (U)on 02-11-2024 Appearance (U) Clear Normal Clear [facility] Comment on above: Performed By: #### 5 8077-9 #### TITUS Mercado ([id number]) [facility] ([facility]) [address] [place], [place] [address] Bilirubin (U) [Mass/Vol] Negative Normal NEGATIVE [facility] Comment on above: Performed By: #### 5 8077-9 #### TITUS Mercado (85508) [facility] ([facility]) [address] [place] [address] 75408 Color (U) Colorless Normal Light-[place] ow, Yellow, Dark-Yello w [facility] Comment on above: Performed By: #### 5 8077-9 #### TITUS Mercado ([id number]) [facility] ([facility]) [address] [place] [address] 49637 Glucose Auto test strip (U) [Mass/Vol] Normal Normal Normal [facility] Comment on above: Performed By: #### 5 8077-9 #### TITUS SOLORZANO L ([id number]) [facility] ([facility]) [address] [place] [address] 79924 Ketones (U) [Mass/Vol] Negative Normal NEGATIVE Un [facility] Comment on above: Performed By: #### 5 8077-9 #### TITUS Mercado ([id number]) [facility] ([facility]) [address] [place] [address] 61260 Leukocyte esterase Auto test strip Ql (U) Negative Normal NEGATIVE [facility] Comment on above: Performed By: #### 5 8077-9 #### TITUS Mercado ([id number]) [facility] ([facility]) [address] [place] [address] 28594 Nitrite Auto test strip Ql (U) Negative Normal NEGATIVE [facility] Comment on above: Performed By: #### 5 8077-9 #### TITUS SOLORZANO L ([id number]) [facility] ([facility]) [address] [place] [address] 44622 pH (U) 5.5 [pH] Normal 5.0, 5.5, 6.0, 6.5, 7.0, 7.5, 8.0 [facility] Comment on above: Performed By: #### 5 8077-9 #### TITUS SOLORZANO L ([id number]) [facility] ([facility]) [address] [place] [address] 17860 Protein (U) [Mass/Vol] Negative Normal NEGAT CELESTE, 10 (TRACE), 20 (TRACE) [facility] Comment on above: Performed By: #### 5 8077-9 #### TITUS SCHMOTZER L (22939) [facility] [facility] ([facility]) [address] [place] [id number] RBC (U) [#/Vol] Negative Normal NEGATIVE [facility] Comment on above: Performed By: #### 5 [id number] #### TITUS SCHMOTZER L ([id number]) [facility] ([facility]) [address] [place] [id number] Specific gravity (U) [Rel density] 1.007 Normal 1.005-1.[address] [place] [address] Comment on above: Performed By: #### 5 [id number] #### TITUS SCHMOTZER L ([id number]) [facility] ([facility]) [address] [place] [id number] Urobilinogen (U) [Mass/Vol] Normal Normal Normal [facility] Comment on above: Performed By: #### 5 [id number] #### TITUS SCHMOTZER L ([id number]) [facility] ([facility]) [address] [place] [id number] MR BRAIN TUMOR PERFUSION PRO TOCOL W AND WO IV CONTRASTon 12-13-2023 MR BRAIN TUMOR PERFUSION PROTOCOL W AND WO IV CONTRAST Interpreted By: Nate Benavidez, STUDY: MR BRAIN TUMOR PERFUSION PROTOCOL W AND WO IV CONTRAST; 12/13/2023 8:49 am INDICATION: Signs/Symptoms:pontine lesion, imaging surveillance. COMPARISON: None. ACCESSION NUMBER(S): [id number] ORDERING CLINICIAN: SHIMON HEATON TECHNIQUE: Axial diffusion, [...] Nate Benavidez 12/13/2023 9:38 AM Dictation workstation: [id number] [facility] Comment on above: Order Comment: JESSICA huerta cc'd to [place] MR Brain for new diagnosis t umor [...] Nate Benavidez 12/13/2023 9:38 AM Dictation workstation: [id number] Interpreted By: Nate Dejesus, STUDY: MR BRAIN TUMOR PERFUSION PROTOCOL W AND WO IV CONTRAST; 12/13/2023 8:49 am INDICATION: Signs/Symptoms:pontine lesion, imaging surveillance. COMPARISON: None. ACCESSION NUMBER(S): [id number] ORDERING CLINICIAN: SHIMON HEATON TECHNIQUE: Axial diffusion, [...] lesion, imaging surveillance. COMPARISON: None. ACCESSION NUMBER(S): [id number] ORDERING CLINICIAN: SHIMON HEATON TECHNIQUE: Axial diffusion, [...] Nate Benavidez 12/13/2023 9:38 AM Dictation workstation: [id number] [facility] Work Phone: Radiology Study observation (narrative) [facility] Work Phone: MR Brain for new diagnosis t umor WO and W contrast IVOrdered By: Nate Benavidez on 12-13-2023 [facility] Work Phone: Basophils Auto (Bld) [#/Vol] on 10-26-2023 Basophils (Bld) [#/Vol] 0.04 10*3/uL <0.11 [facility] Basophils/100 WBC Auto (Bld) on 10-26-2023 Basophils/100 WBC (Bld) 0.5 % [facility] Blood manual differential co mment interpretation narrativeon 10-26-2023 Manual differential comment Curtis (Bld) [Interp] Auto [facility] CBC W Auto Differential pane l (Bld)on 10-26-2023 Basophils (Bld) [#/Vol] 0.04 10*3/uL [facility] Basophils/100 WBC (Bld) 0.5 % [facility] Differential cell count method Nom (Bld) Auto [facility] Eosinophils (Bld) [#/Vol] 0.13 10*3/uL [facility] Eosinophils/100 WBC (Bld) 1.5 % [facility] Erythrocyte distribution width (RBC) [Ratio] 13.8 % 11.5 - 15.0 % [facility] Hematocrit (Bld) [Volume fraction] 42.6 % 39.0 - 51.0 % [facility] Hemoglobin (Bld) [Mass/Vol] 14.4 g/dL 13.0 - 17.0 g/dL [facility] Immature granulocytes (Bld) [#/Vol] 0.03 10*3/uL [facility] Immature granulocytes/100 WBC (Bld) 0.3 % [facility] Lymphocytes (Bld) [#/Vol] 2.18 10*3/uL [facility] Lymphocytes/100 WBC (Bld) 24.8 % [facility] MCH (RBC) [Entitic mass] 32.0 pg 26.0 - 34.0 pg [facility] MCHC (RBC) [Mass/Vol] 33.8 g/dL 30.5 - 36.0 g/dL [facility] MCV (RBC) [Entitic vol] 94.7 fL 80.0 - 100.0 fL [facility] Monocytes (Bld) [#/Vol] 0.60 10*3/uL [facility] Monocytes/100 WBC (Bld) 6.8 % [facility] Neutrophils (Bld) [#/Vol] 5.80 10*3/uL [facility] Neutrophils/100 WBC (Bld) 66.1 % [facility] Nucleated RBC (Bld) [#/Vol] NINF [facility] Nucleated RBC/100 WBC (Bld) [Ratio] 0.0 % /100 WBC [facility] Platelet mean volume (Bld) [Entitic vol] 10.2 fL 9.0 - 12.7 fL [facility] Platelets (Bld) [#/Vol] 314 10*3/uL [facility] RBC (Bld) [#/Vol] 4.50 10*6/uL 4.20 - 6.00 m/uL [facility] WBC (Bld) [#/Vol] 8.78 10*3/uL [facility] CT Chest W [...] any questions regarding this interpretation, please call [phone]. If you are unable to reach us at the number above, please feel free to contact [facility] eRadiology at [phone]. DIVISION OF RADIOLOGY * * *Final Report* * * DATE OF EXAM: Oct 26 2023 10:05AM [facility] 0539 - CT CHEST W IVCON [...] No additional findings. DIVISION OF RADIOLOGY Provider, [facility] - 10/26/2023 * * *Final Report* * * DATE OF EXAM: Oct 26 2023 10:05AM [facility] 0539 - CT CHEST W IVCON [...] any questions regarding this interpretation, please call [phone]. If you are unable to reach us at the number above, please feel free to contact [facility] eRadiology at [phone]. [facility] CT Neck W contrast Tristin 05-1 IMPRESSION: Primary: 1: Expected post-treatment changes in the neck without evidence of recurrent disease in the primary site. Neck: 1: No evidence of abnormal lymph nodes. [email or web address] Transcribe Date/Time: Oct 26 2023 10:15A Dictated by: LIMA LIZ MD This examination was interpreted and the report reviewed and electronically signed by: LIMA LIZ MD on Oct 26 2023 10:35AM EST Thank you for allowing us to participate in the care of your patient. Should there be any questions regarding this interpretation, please call [phone]. If you are unable to reach us at the number above, please feel free to contact [facility] at [phone]. DIVISION OF RADIOLOGY * * *Final Report* * * DATE OF EXAM: Oct 26 2023 10:05AM 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 Resected T1 N1 base [...] normal. Parotid and submandibular spaces are normal. Service Counter Cashier spaces appear normal. Infrahyoid Neck: Hypopharynx, larynx, [...] are clear of focal consolidation or mass. Cake Winder (topogram) images: Noncontributory DIVISION OF RADIOLOGY Provider, Dacia villagomez [place] - 10/26/2023 * * *Final Report* * * DATE OF EXAM: Oct 26 2023 10:05AM 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 Resected T1 N1 base [...] normal. Parotid and submandibular spaces are normal. Service Counter Cashier spaces appear normal. Infrahyoid Neck: Hypopharynx, larynx, [...] are clear of focal consolidation or mass. Cake Winder (topogram) images: Noncontributory IMPRESSION IMPRESSION: Primary: 1: Expected post-treatment changes in the neck without evidence of recurrent disease in the primary site. Neck: 1: No evidence of abnormal lymph nodes. [email or web address] Transcribe Date/Time: Oct 26 2023 10:15A Dictated by: LIMA LIZ MD This examination was interpreted and the report reviewed and electronically signed by: (more content not included)... [facility] CT Neck W contrast IVOrdered By: Ccf Provider on 10-26-2023 [facility] Comprehensive metabolic 2000 panelOrdered By: Pauly Chan on 10-26-2023 Albumin [Mass/Vol] 4.3 g/dL 3.9 - 4.9 g/dL [facility] ALP [Catalytic activity/Vol] 75 U/L 38 - 113 U/L [facility] ALT [Catalytic activity/Vol] 10 U/L 10 - 54 U/L [facility] Anion gap [Moles/Vol] 8 mmol/L Low 9 - 18 mmol/L [facility] AST [Catalytic activity/Vol] 9 U/L Low 14 - 40 U/L [facility] Bilirubin [Mass/Vol] 0.5 mg/dL 0.2 - 1 .3 mg/dL [facility] Calcium [Mass/Vol] 9.9 mg/dL 8.5 - 10. 2 mg/dL [facility] Chloride [Moles/Vol] 106 mmol/L High 97 - 10 5 mmol/L [facility] CO2 [Moles/Vol] 27 mmol/L 22 - 30 mmol/L [facility] Creatinine [Mass/Vol] 1.01 mg/dL 0.73 - 1.22 mg/dL [facility] GFR/1.73 sq M.predicted among non-blacks MDRD (S/P/Bld) [Vol rate/Area] 85 mL/min/{1.73_m2} - PINF [facility] Comment on above: Estimated Glomerular Filtration [...] [Mass/Vol] 89 mg/dL 74 - 99 mg/dL [facility] Comment on above: The [place] Diab[employer] [place] Association (ADA) provides guidance for [...] Standards of Medical Care in Diabetes 2016, [place] [employer] Association. Diabetes Care. 2016.39(Suppl 1). Interpretation and review of laboratory results Abnormal [facility] Potassium [Moles/Vol] 4.0 mmol/L 3.7 - 5.1 mmol/L [facility] Protein [Mass/Vol] 6.4 g/dL 6.3 - 8.0 g/dL [facility] Sodium [Moles/Vol] 141 mmol/L 136 - 144 mmol/L [facility] Urea nitrogen [Mass/Vol] 16 mg/dL 9 - 24 mg/dL [facility] Eosinophils/100 WBC Auto (Bl d)on 10-26-2023 Eosinophils/100 WBC (Bld) 1.5 % [facility] Erythrocyte distribution wid th Auto (RBC) [Ratio]on 10-26-2023 Erythrocyte distribution width (RBC) [Ratio] 13.8 % 11.5-15.0 [facility] Hematocrit Auto (Bld) [Volum e fraction]on 10-26-2023 Hematocrit (Bld) [Volume fraction] 42.6 % 39.0-51.0 [facility] Hemoglobin [Mass/volume] in Bloodon 10-26-2023 Hemoglobin (Bld) [Mass/Vol] 14.4 g/dL 13.0-17.0 [facility] Laboratory - Chemistry and C hemistry - challengeon 10-26-2023 Albumin [Mass/Vol] 4.3 g/dL 3.9-4.9 [facility] ALP [Catalytic activity/Vol] 75 U/L 38-113 [facility] ALT [Catalytic activity/Vol] 10 U/L 10-54 [facility] AST [Catalytic activity/Vol] 9 U/L 14-40 [facility] Bilirubin [Mass/Vol] 0.5 mg/dL 0.2-1.3 [facility] Calcium [Mass/Vol] 9.9 mg/dL 8.5-10.2 [facility] Chloride [Moles/Vol] 106 mmol/L 97-105 [facility] CO2 [Moles/Vol] 27 mmol/L 22-30 [facility] Creatinine [Mass/Vol] 1.01 mg/dL 0.73-1.22 [facility] Glucose [Mass/Vol] 89 mg/dL 74-99 [facility] Comment on above: The [place] Diab[employer] [place] Association (ADA) provides guidance for [...] Standards of Medical Care in Diabetes 2016, [place] Diabetes Association. Diabetes Care. 2016.39(Suppl 1). Potassium [Moles/Vol] 4.0 mmol/L 3.7-5.1 [facility] Sodium [Moles/Vol] 141 mmol/L 136-144 [facility] Urea nitrogen [Mass/Vol] 16 mg/dL 9-24 [facility] Laboratory - Hematology and Cell countson 10-26-2023 Eosinophils (Bld) [#/Vol] 0.13 10*3/uL <0.46 [facility] Immature granulocytes (Bld) [#/Vol] 0.03 10*3/uL <0.10 [facility] Immature granulocytes/100 WBC (Bld) 0.3 % [facility] Leukocytes [#/volume] correc mone for nucleated erythrocytes in Blood by Automated counon 10-26-2023 WBC corrected for nucl RBC Auto (Bld) [#/Vol] 8.78 k/uL 3.70-11.00 [facility] Lymphocytes Auto (Bld) [#/Vo l]on 10-26-2023 Lymphocytes (Bld) [#/Vol] 2.18 10*3/uL 1.00-4.00 [facility] Lymphocytes/100 WBC Auto (Bl d)on 10-26-2023 Lymphocytes/100 WBC (Bld) 24.8 % [facility] MCH Auto (RBC) [Entitic mass ]on 10-26-2023 MCH (RBC) [Entitic mass] 32.0 pg 26.0-34.0 [facility] MCHC Auto (RBC) [Mass/Vol]on 10-26-2023 MCHC (RBC) [Mass/Vol] 33.8 g/dL 30.5-36.0 [facility] MCV Auto (RBC) [Entitic vol] on 10-26-2023 MCV (RBC) [Entitic vol] 94.7 fL 80.0-100.0 [facility] Monocytes Auto (Bld) [#/Vol] on 10-26-2023 Monocytes (Bld) [#/Vol] 0.60 10*3/uL <0.87 [facility] Monocytes/100 WBC Auto (Bld) on 10-26-2023 Monocytes/100 WBC (Bld) 6.8 % [facility] Neutrophils Auto (Bld) [#/Vo l]on 10-26-2023 Neutrophils (Bld) [#/Vol] 5.80 10*3/uL 1.45-7.50 [facility] Neutrophils/100 WBC Auto (Bl d)on 10-26-2023 Neutrophils/100 WBC (Bld) 66.1 % [facility] No Panel Informationon 10-25 Radiology Study observation (narrative) [facility] Estimated GFR (CKD-EPI) 85 mL/min/1.73m??? >=60 [facility] Comment on above: Estimated Glomerular Filtration [...] 10-26-2023 Nucleated RBC (Bld) [#/Vol] 10*3/uL <0.01 [facility] Nucleated erythrocytes [Pres ence] in Blood by Automated counton 10-26-2023 Nucleated RBC Auto Ql (Bld) 0.0 /100{WBC} [facility] Platelet mean volume Auto (B ld) [Entitic vol]on 10-26-2023 Platelet mean volume (Bld) [Entitic vol] 10.2 fL 9.0-12.7 [facility] Platelets Auto (Bld) [#/Vol] on 10-26-2023 Platelets (Bld) [#/Vol] 314 10*3/uL 150-400 [facility] Protein [Mass/volume] in Ser um or Plasmaon 10-26-2023 Protein [Mass/Vol] 6.4 g/dL 6.3-8.0 [facility] RBC Auto (Bld) [#/Vol]on RBC (Bld) [#/Vol] 4.50 10*6/uL 4.20-6.00 [facility] Serum or plasma anion gap de terminationon 10-26-2023 Anion gap [Moles/Vol] 8 mmol/L 9-18 [facility] Alanine aminotransferase [En zymatic activity/volume] in Serum or PlasmaOrdered By: Griselda Hastings on 10-09-2023 ALT [Catalytic activity/Vol] 8 U/L 7-52 [facility] Albumin [Mass/volume] in Ser um or Plasma by Bromocresol green (BCG) dye binding methoOrdered By: Griselda Hastings on 10-09-2023 Albumin BCG dye [Mass/Vol] 3.9 g/dL 3.5-5.7 [facility] Alkaline phosphatase [Enzyma tic activity/volume] in Serum or PlasmaOrdered By: Griselda Hastings on 10-09-2023 ALP [Catalytic activity/Vol] 59 U/L 34-104 [facility] Aspartate aminotransferase [ Enzymatic activity/volume] in Serum or PlasmaOrdered By: Griselda Hastings on 10-09-2023 AST [Catalytic activity/Vol] 7 U/L 13-39 [facility] Basophils Auto (Bld) [#/Vol] Ordered By: Griselda Hastings on 10-09-2023 Basophils (Bld) [#/Vol] 0.1 10*3/uL 0.0-0.2 [facility] Basophils/100 WBC Auto (Bld) Ordered By: Griselda Hastings on 10-09-2023 Basophils/100 WBC (Bld) 0.9 % . [facility] Bilirubin.total [Mass/volume ] in Serum or PlasmaOrdered By: Griselda Hastings on 10-09-2023 Bilirubin [Mass/Vol] 0.5 mg/dL 0.3-1.0 [facility] COVID-19 Detected/Not Detect edOrdered By: Griselda Hastings on 10-09-2023 SARS-CoV-2 (COVID-19) RNA JER+non-probe Ql (Nph) Not detected Not Detecte [facility] Comment on above: This is a duplicate RP2.1 COVID (PCR) result to be used for statistical tracking purpose only. Calcium [Mass/volume] in Ser um or PlasmaOrdered By: Griselda Hastings on 10-09-2023 Calcium [Mass/Vol] 9.5 mg/dL 8.6-10.3 [facility] Carbon dioxide, total [Moles /volume] in Serum or PlasmaOrdered By: Griselda Hastings on 10-09-2023 CO2 [Moles/Vol] 30.0 mmol/L 21.0-31.0 [facility] Chloride [Moles/volume] in S r[place] or PlasmaOrdered By: Griselda Hastings on 10-09-2023 Chloride [Moles/Vol] 103 mmol/L 98-107 [facility] Creatinine [Mass/volume] in Serum or PlasmaOrdered By: Griselda Hastings on 10-09-2023 Creatinine [Mass/Vol] 0.92 mg/dL 0.70-1.30 [facility] Eosinophils Auto (Bld) [#/Vo l]Ordered By: Griselda Hastings on 10-09-2023 Eosinophils (Bld) [#/Vol] 0.1 10*3/uL 0.0-0.45 [facility] Eosinophils/100 WBC Auto (Bl d)Ordered By: Griselda Hastings on 10-09-2023 Eosinophils/100 WBC (Bld) 1.0 % . [facility] Erythrocyte distribution wid th Auto (RBC) [Ratio]Ordered By: Griselda Hastings on 10-09-2023 Erythrocyte distribution width (RBC) [Ratio] 14.3 % 12.0-14.8 [facility] Globulin Calc (S) [Mass/Vol] Ordered By: Griselda Hastings on 10-09-2023 Globulin (S) [Mass/Vol] 2.0 g/dL [facility] Glucose [Mass/volume] in Ser um or PlasmaOrdered By: Griselda Hastings on 10-09-2023 Glucose [Mass/Vol] 84 mg/dL 70-100 [facility] Comment on above: ADA recommended refe rence rangeRandom Glucose Reference Range is dependent on time and content of last meal. Glucose of more than 200 mg/dL in a nonstressed, ambulatory subject supports the diagnosis of Diabetes Mellitus. Hematocrit Auto (Bld) [Volum e fraction]Ordered By: Griselda Hastings on 10-09-2023 Hematocrit (Bld) [Volume fraction] 41.9 % 38.8-50.0 [facility] Hemoglobin [Mass/volume] in BloodOrdered By: Griselda Hastings on 10-09-2023 Hemoglobin (Bld) [Mass/Vol] 14.4 g/dL 13.0-17.0 [facility] Leukocytes [#/volume] correc mone for nucleated erythrocytes in Blood by Automated counOrdered By: Griselda Hastings on 10-09-2023 WBC corrected for nucl RBC Auto (Bld) [#/Vol] 8.1 10*3/uL 4.1-10.5 [facility] Lymphocytes Auto (Bld) [#/Vo l]Ordered By: Griselda Hastings on 10-09-2023 Lymphocytes (Bld) [#/Vol] 2.7 10*3/uL 1.00-4.8 [facility] Lymphocytes/100 WBC Auto (Bl d)Ordered By: Griselda Hastings on 10-09-2023 Lymphocytes/100 WBC (Bld) 33.6 % . [facility] MCH Auto (RBC) [Entitic mass ]Ordered By: Griselda Hastings on 10-09-2023 MCH (RBC) [Entitic mass] 32.7 pg 27.5-35.2 [facility] MCHC Auto (RBC) [Mass/Vol]Or dered By: Griselda Hastings on 10-09-2023 MCHC (RBC) [Mass/Vol] 34.4 g/dL 32.5-35.6 [facility] MCV Auto (RBC) [Entitic vol] Ordered By: Griselda Hastings on 10-09-2023 MCV (RBC) [Entitic vol] 94.8 fL 83.5-101 [facility] Monocytes Auto (Bld) [#/Vol] Ordered By: Griselda Hastings on 10-09-2023 Monocytes (Bld) [#/Vol] 0.6 10*3/uL 0.0-0.8 [facility] Monocytes/100 WBC Auto (Bld) Ordered By: Griselda Hastings on 10-09-2023 Monocytes/100 WBC (Bld) 7.5 % . [facility] Neutrophils Auto (Bld) [#/Vo l]Ordered By: Griselda Hastings on 10-09-2023 Neutrophils (Bld) [#/Vol] 4.6 10*3/uL 1.8-7.7 [facility] Neutrophils/100 WBC Auto (Bl d)Ordered By: Griselda Hastings on 10-09-2023 Neutrophils/100 WBC (Bld) 57.0 % . [facility] No Panel InformationOrdered By: Griselda Hastings on 10-09-2023 Estimated GFR (CKD-EPI) > 60.0 mL/Min [facility] Creatinine Clearance (Chem N/A [facility] Nucleated erythrocytes [Pres ence] in Blood by Automated countOrdered By: Griselda Hastings on 10-09-2023 Nucleated RBC Auto Ql (Bld) 0.2 /100{WBC} 0-0.5 [facility] Platelet mean volume Auto (B ld) [Entitic vol]Ordered By: Griselda Hastings on 10-09-2023 Platelet mean volume (Bld) [Entitic vol] 8.3 fL 6.6-10.1 [facility] Platelets Auto (Bld) [#/Vol] Ordered By: Griselda Hastings on 10-09-2023 Platelets (Bld) [#/Vol] 349 10*3/uL 150-450 [facility] Potassium [Moles/volume] in Serum or PlasmaOrdered By: Griselda Hastings on 10-09-2023 Potassium [Moles/Vol] 4.5 mmol/L 3.5-5.1 [facility] Protein [Mass/volume] in Ser um or PlasmaOrdered By: Griselda Hastings on 10-09-2023 Protein [Mass/Vol] 5.9 g/dL 6.4-8.9 [facility] RBC Auto (Bld) [#/Vol]Ordere d By: Griselda Hastings on 10-09-2023 RBC (Bld) [#/Vol] 4.42 10*6/uL 3.90-5.60 [facility] Respiratory pathogens DNA an d RNA panel - Nasopharynx by JER with non-probe detectionOrdered By: Griselda Hastings on 10-09-2023 Respiratory pathogens DNA and RNA panel JER+non-probe (Nph) [facility] Serum or plasma albumin/glob ulin mass ratioOrdered By: Griselda Hastings on 10-09-2023 Albumin/Globulin [Mass ratio] 2.0 {ratio} [facility] Serum or plasma anion gap de terminationOrdered By: Griselda Hastings on 10-09-2023 Anion gap [Moles/Vol] 9.5 mmol/L 6.0-15.0 [facility] Sodium [Moles/volume] in Ser um or PlasmaOrdered By: Griselda Hastings on 10-09-2023 Sodium [Moles/Vol] 138 mmol/L 136-145 [facility] Urea nitrogen [Mass/volume] in Serum or PlasmaOrdered By: Griselda Hastings on 10-09-2023 Urea nitrogen [Mass/Vol] 14 mg/dL 7-25 [facility] WBC Auto (Bld) [#/Vol]Ordere d By: Griselda Hastings on 10-09-2023 WBC (Bld) [#/Vol] 8.1 10*3/uL 4.1-10.5 [facility] Study Interpretation of outs jeffrey studyon [...] Vitor Hickman MD 08/01/23 Final result Normal [facility] MRI CERVICAL SPINE WO CONTRA STon [...] Vitor Hickman MD 08/01/23 Final result Normal [facility] COVID + FLU Quick Testingon 07-02-2023 SARS-CoV-2 (COVID-19) RNA JER+probe Ql (Unsp spec) Negative [facility] Other COVID + FLU Quick Testing Negative [facility] Other Quick Strepon 07-02-2023 S. pyogenes Org specific cx Ql (Throat) Negative [facility] Other Quick Strep [facility] Other RSVon 07-02-2023 RSV Ag IA Ql (Unsp spec) Negative [facility] [employer] Other Creatinine [Mass/volume] in Serum or PlasmaOrdered By: Ruddy Harvey on 05-07-2023 Creatinine [Mass/Vol] 0.91 mg/dL 0.70-1.30 [facility] No Panel InformationOrdered By: Ruddy Harvey on 05-07-2023 Estimated GFR (CKD-EPI) > 60.0 mL/Min [facility] Creatinine Clearance (Chem 83.52 [facility] Urea nitrogen [Mass/volume] in Serum or PlasmaOrdered By: Ruddy Harvey on 05-07-2023 Urea nitrogen [Mass/Vol] 15 mg/dL 7-25 [facility] Creatinine (Bld) [Mass/Vol]O rdered By: Nikole Mota on 05-04-2023 Creatinine [Mass/Vol] 0.9 mg/dL 0.6-1.3 [facility] Comment on above: ER/ESD physician is notified/shown all ISTAT results.Critical values may be confirmed by laboratory testing ifdeemed necessary by ER attending doctor. No Panel InformationOrdered By: Nikole Mota on 05-04-2023 Bedside Estimated GFR (eGFR) > 60.0 [facility] Alanine aminotransferase [En zymatic activity/volume] in Serum or PlasmaOrdered By: Griselda Hastings on 03-30-2023 ALT [Catalytic activity/Vol] 10 U/L 7-52 [facility] Albumin [Mass/volume] in Ser um or Plasma by Bromocresol green (BCG) dye binding methoOrdered By: Griselda Hastings on 03-30-2023 Albumin BCG dye [Mass/Vol] 4.2 g/dL 3.5-5.7 [facility] Alkaline phosphatase [Enzyma tic activity/volume] in Serum or PlasmaOrdered By: Griselda Hastings on 03-30-2023 ALP [Catalytic activity/Vol] 61 U/L 34-104 [facility] Aspartate aminotransferase [ Enzymatic activity/volume] in Serum or PlasmaOrdered By: Griselda Hastings on 03-30-2023 AST [Catalytic activity/Vol] 8 U/L 13-39 [facility] Basophils Auto (Bld) [#/Vol] Ordered By: Griselda Hastings on 03-30-2023 Basophils (Bld) [#/Vol] 0.1 10*3/uL 0.0-0.2 [facility] Basophils/100 WBC Auto (Bld) Ordered By: Griselda Hastings on 03-30-2023 Basophils/100 WBC (Bld) 0.8 % . [facility] Bilirubin.total [Mass/volume ] in Serum or PlasmaOrdered By: Griselda Hastings on 03-30-2023 Bilirubin [Mass/Vol] 0.9 mg/dL 0.3-1.0 [facility] Calcium [Mass/volume] in Ser um or PlasmaOrdered By: Griselda Hastings on 03-30-2023 Calcium [Mass/Vol] 9.1 mg/dL 8.6-10.3 [facility] Carbon dioxide, total [Moles /volume] in Serum or PlasmaOrdered By: Griselda Hastings on 03-30-2023 CO2 [Moles/Vol] 27.0 mmol/L 21.0-31.0 [facility] Chloride [Moles/volume] in [place] r[place] or PlasmaOrdered By: Griselda Hastings on 03-30-2023 Chloride [Moles/Vol] 103 mmol/L 98-107 [facility] Cholesterol [Mass/volume] in Serum or PlasmaOrdered By: Griselda Hastings on 03-30-2023 Cholesterol [Mass/Vol] 224 mg/dL 140-200 [facility] Comment on above: Chol less than 200 m g/dl low riskChol 201-239 mg/dl borderline riskChol 240 mg/dl and greater high risk Cholesterol in LDL Calc [Mas s/Vol]Ordered By: Griselda Hastings on 03-30-2023 Cholesterol in LDL [Mass/Vol] 148 mg/dL 0-100 [facility] Comment on above: LDL ATP III CLASSIFI CATIONLDL less than 100 mg/dL OptimalLDL 100-129 mg/dL Near or above optimalLDL 130-159 mg/dL Borderline highLDL 160-189 mg/dL HighLDL greater than 189 mg/dL Very high Cholesterol in VLDL Calc [Ma ss/Vol]Ordered By: Griselda Hastings on 03-30-2023 Cholesterol in VLDL [Mass/Vol] 31 mg/dL [facility] Creatinine [Mass/volume] in Serum or PlasmaOrdered By: Griselda Hastings on 03-30-2023 Creatinine [Mass/Vol] 0.82 mg/dL 0.70-1.30 [facility] Eosinophils Auto (Bld) [#/Vo l]Ordered By: Griselda Hastings on 03-30-2023 Eosinophils (Bld) [#/Vol] 0.1 10*3/uL 0.0-0.45 [facility] Eosinophils/100 WBC Auto (Bl d)Ordered By: Griselda Hastings on 03-30-2023 Eosinophils/100 WBC (Bld) 0.6 % . [facility] Erythrocyte distribution wid th Auto (RBC) [Ratio]Ordered By: Griselda Hastings on 03-30-2023 Erythrocyte distribution width (RBC) [Ratio] 14.1 % 12.0-14.8 [facility] Globulin Calc (S) [Mass/Vol] Ordered By: Griselda Hastings on 03-30-2023 Globulin (S) [Mass/Vol] 1.9 g/dL [facility] Glucose [Mass/volume] in Ser um or PlasmaOrdered By: Griselda Hastings on 03-30-2023 Glucose [Mass/Vol] 83 mg/dL 70-100 [facility] Comment on above: ADA recommended refe rence rangeRandom Glucose Reference Range is dependent on time and content of last meal. Glucose of more than 200 mg/dL in a nonstressed, ambulatory subject supports the diagnosis of Diabetes Mellitus. Hematocrit Auto (Bld) [Volum e fraction]Ordered By: Griselda Hastings on 03-30-2023 Hematocrit (Bld) [Volume fraction] 41.4 % 38.8-50.0 [facility] Hemoglobin [Mass/volume] in BloodOrdered By: Griselda Hastings on 03-30-2023 Hemoglobin (Bld) [Mass/Vol] 14.4 g/dL 13.0-17.0 [facility] Leukocytes [#/volume] correc mone for nucleated erythrocytes in Blood by Automated counOrdered By: Griselda Hastings on 03-30-2023 WBC corrected for nucl RBC Auto (Bld) [#/Vol] 10.0 10*3/uL 4.1-10.5 [facility] Lymphocytes Auto (Bld) [#/Vo l]Ordered By: Griselda Hastings on 03-30-2023 Lymphocytes (Bld) [#/Vol] 1.7 10*3/uL 1.00-4.8 [facility] Lymphocytes/100 WBC Auto (Bl d)Ordered By: Griselda Hastings on 03-30-2023 Lymphocytes/100 WBC (Bld) 16.8 % . [facility] MCH Auto (RBC) [Entitic mass ]Ordered By: Griselda Hastings on 03-30-2023 MCH (RBC) [Entitic mass] 33.9 pg 27.5-35.2 [facility] MCHC Auto (RBC) [Mass/Vol]Or dered By: Griselda Hastings on 03-30-2023 MCHC (RBC) [Mass/Vol] 34.9 g/dL 32.5-35.6 [facility] MCV Auto (RBC) [Entitic vol] Ordered By: Griselda Hastings on 03-30-2023 MCV (RBC) [Entitic vol] 97.1 fL 83.5-101 [facility] Monocytes Auto (Bld) [#/Vol] Ordered By: Griselda Hastings on 03-30-2023 Monocytes (Bld) [#/Vol] 0.8 10*3/uL 0.0-0.8 [facility] Monocytes/100 WBC Auto (Bld) Ordered By: Griselda Hastings on 03-30-2023 Monocytes/100 WBC (Bld) 8.0 % . [facility] Neutrophils Auto (Bld) [#/Vo l]Ordered By: Griselda Hastings on 03-30-2023 Neutrophils (Bld) [#/Vol] 7.3 10*3/uL 1.8-7.7 [facility] Neutrophils/100 WBC Auto (Bl d)Ordered By: Griselda Hastings on 03-30-2023 Neutrophils/100 WBC (Bld) 73.8 % . [facility] No Panel InformationOrdered By: Griselda Hastings on 03-30-2023 Estimated GFR (CKD-EPI) > 60.0 mL/Min [facility] Creatinine Clearance (Chem N/A [facility] Nucleated erythrocytes [Pres ence] in Blood by Automated countOrdered By: Griselda Hastings on 03-30-2023 Nucleated RBC Auto Ql (Bld) 0.1 /100{WBC} 0-0.5 [facility] Platelet mean volume Auto (B ld) [Entitic vol]Ordered By: Griselda Hastings on 03-30-2023 Platelet mean volume (Bld) [Entitic vol] 9.2 fL 6.6-10.1 [facility] Platelets Auto (Bld) [#/Vol] Ordered By: Griselda Hastings on 03-30-2023 Platelets (Bld) [#/Vol] 221 10*3/uL 150-450 [facility] Potassium [Moles/volume] in Serum or PlasmaOrdered By: Griselda Hastings on 03-30-2023 Potassium [Moles/Vol] 4.1 mmol/L 3.5-5.1 [facility] Protein [Mass/volume] in Ser um or PlasmaOrdered By: Griselda Hastings on 03-30-2023 Protein [Mass/Vol] 6.1 g/dL 6.4-8.9 [facility] RBC Auto (Bld) [#/Vol]Ordere d By: Griselda Hastings on 03-30-2023 RBC (Bld) [#/Vol] 4.26 10*6/uL 3.90-5.60 [facility] Serum or plasma albumin/glob ulin mass ratioOrdered By: Griselda Hastings on 03-30-2023 Albumin/Globulin [Mass ratio] 2.2 {ratio} [facility] Serum or plasma anion gap de terminationOrdered By: Griselda Hastings on 03-30-2023 Anion gap [Moles/Vol] 12.1 mmol/L 6.0-15.0 [facility] Serum or plasma high density lipoprotein (HDL) cholesterol measurementOrdered By: Griselda Hastings on 03-30-2023 Cholesterol in HDL [Mass/Vol] 44 mg/dL 23-92 [facility] Comment on above: HDL CHOL ATP-III CLA SSIFICATION Cardiovascular RiskHDL > or equal to 60 mg/dL LOWHDL < 40 mg/dL HIGH Serum or plasma total choles terol/high density lipoprotein (HDL) cholesterol mass ratOrdered By: Griselda Hastings on 03-30-2023 Cholesterol.total/Chol esterol in HDL [Mass ratio] 5.1 {ratio} <5.0 [facility] Sodium [Moles/volume] in Ser um or PlasmaOrdered By: Griselda Hastings on 03-30-2023 Sodium [Moles/Vol] 138 mmol/L 136-145 [facility] Thyrotropin [Units/volume] i n Serum or PlasmaOrdered By: Griselda Hastings on 03-30-2023 TSH Qn 0.93 m[IU]/L 0.45-5.33 [facility] Triglyceride [Mass/volume] i n Serum or PlasmaOrdered By: Griselda Hastings on 03-30-2023 Triglyceride [Mass/Vol] 159 mg/dL 0-149 [facility] Comment on above: TRIG ATP III CLASSIF ICATIONTRIG less than 150 mg/dL NormalTRIG 150-199 mg/dL Borderline highTRIG 200-500 mg/dL High TRIG greater than 500 mg/dL Very highStandard traceable to the Center for Disease Conrtrol and Prevention (CDC) test method. Urea nitrogen [Mass/volume] in Serum or PlasmaOrdered By: Griselda Hastings on 03-30-2023 Urea nitrogen [Mass/Vol] 10 mg/dL 7-25 [facility] WBC Auto (Bld) [#/Vol]Ordere d By: Griselda Hastings on 03-30-2023 WBC (Bld) [#/Vol] 10.0 10*3/uL 4.1-10.5 [facility] COVID-19 SOFIAOrdered By: Brandyn Gaytan on 02-26-2023 SARS-CoV+SARS-CoV-2 (COVID-19) Ag IA.rapid Ql (Resp) Negative Negative [facility] Comment on above: This is a duplicate Anna SARS Antigen (JAMILA) result to be used for statistical tracking purpose only. No Panel InformationOrdered By: Daniel Gaytan on 02-26-2023 SARS Antigen (LFIA) [facility] SARS Antigen (LFIA) [facility] No Panel Informationon 12-28 XR Pain Management C ase (Reference Range: not available) *FINAL Date of Service: 12/28/2022 08:49 Adm #: [id number] Reading Dr:RICARDO CAPPS Signoff Dr: RICARDO CAPPS PROCEDURE: PAIN MANAGEMENT CASE - BXR 0999 REASON FOR EXAM: SPONDYLOSIS W/O MYELOPATHY OR RADICULOPATHY, CERVICAL REGION RESULT: Patient Name: JOVANI MELENDEZ STUDY: PAIN MANAGEMENT CASE INDICATION: SPONDYLOSIS W/O MYELOPATHY OR RADICULOPATHY, CERVICAL REGION COMPARISON: None. ACCESSION NUMBER(S): [id number] ORDERING CLINICIAN: LIMA JOSEPH TECHNIQUE: See below: FINDINGS: Fluoroscopy was provided during therapeutic puncture in the region of the cervical spine for pain management. Total fluoroscopy time: 14.56mgy, images: 4. IMPRESSION: Fluoroscopy for pain management. Dictation workstation: [id number] Original Interpreting Physician: RICARDO CAPPS M.D. Original Transcribed by/Date: MMODAL Dec 28 2022 6:14A Original Electronically Signed by/Date: RICARDO CAPPS M.D. Dec 28 2022 9:04A Addendum Interpreting Physician: Addendum Transcribed by/Date: NO ADDENDUM Addendum Electronically Signed by/Date: [facility] [place] Quick Strepon 12-05-2022 S. pyogenes Org specific cx Ql (Throat) Negative Common [facility] Other Quick Strep Common Sensing Other CT Chest W contrast Tristin IMPRESSION: [...] any questions regarding this interpretation, please call [phone]. If you are unable to reach us at the number above, please feel free to [facility] [phone]. DIVISION OF RADIOLOGY * * *Final Report* * * DATE OF EXAM: Oct 27 2022 11:44AM [facility] 0539 - CT CHEST W IVCON [...] No abnormality in the imaged upper abdomen. Cake Winder (topogram) images: No additional findings. DIVISION OF RADIOLOGY Provider, [facility] - 10/30/2022 * * *Final Report* * * DATE OF EXAM: Oct 27 2022 11:44AM [facility] 0539 - CT CHEST W IVCON [...] No abnormality in the imaged upper abdomen. Cake Winder (topogram) images: No additional findings. IMPRESSION IMPRESSION: [...] any questions regarding this interpretation, please call [phone]. If you are unable to reach us at the number above, please feel free to contact [facility] eRadiology at [phone]. [facility] CBC W Auto Differential pane l (Bld)on 10-27-2022 Basophils (Bld) [#/Vol] 0.03 10*3/uL [facility] Basophils/100 WBC (Bld) 0.3 % [facility] Differential cell count method Nom (Bld) Auto [facility] Eosinophils (Bld) [#/Vol] 0.06 10*3/uL [facility] Eosinophils/100 WBC (Bld) 0.7 % [facility] Erythrocyte distribution width (RBC) [Ratio] 14.0 % 11.5 - 15.0 % [facility] Hematocrit (Bld) [Volume fraction] 43.5 % 39.0 - 51.0 % [facility] Hemoglobin (Bld) [Mass/Vol] 14.5 g/dL 13.0 - 17.0 g/dL [facility] Immature granulocytes (Bld) [#/Vol] 0.03 10*3/uL [facility] Immature granulocytes/100 WBC (Bld) 0.3 % [facility] Lymphocytes (Bld) [#/Vol] 2.00 10*3/uL [facility] Lymphocytes/100 WBC (Bld) 21.9 % [facility] MCH (RBC) [Entitic mass] 31.3 pg 26.0 - 34.0 pg [facility] MCHC (RBC) [Mass/Vol] 33.3 g/dL 30.5 - 36.0 g/dL [facility] MCV (RBC) [Entitic vol] 93.8 fL 80.0 - 100.0 fL [facility] Monocytes (Bld) [#/Vol] 0.53 10*3/uL NINF [facility] Monocytes/100 WBC (Bld) 5.8 % [facility] Neutrophils (Bld) [#/Vol] 6.47 10*3/uL [facility] Neutrophils/100 WBC (Bld) 71.0 % [facility] Nucleated RBC (Bld) [#/Vol] NINF [facility] Nucleated RBC/100 WBC (Bld) [Ratio] 0.0 % /100 WBC [facility] Platelet mean volume (Bld) [Entitic vol] 10.8 fL 9.0 - 12.7 fL [facility] Platelets (Bld) [#/Vol] 253 10*3/uL [facility] RBC (Bld) [#/Vol] 4.64 10*6/uL 4.20 - 6.00 m/uL [facility] WBC (Bld) [#/Vol] 9.12 10*3/uL [facility] CT Neck W contrast Tristin 05- IMPRESSION: Primary NIRADS Category: 1. Expected post-treatment changes in the neck without evidence of recurrent disease in the primary site. Neck NIRADS Category: 1. No evidence of abnormal lymph nodes. [email or web address] Transcribe Date/Time: Oct 27 2022 11:56A Dictated by: KATJA HAMPTON MD This examination was interpreted and the report reviewed and electronically signed by: KATJA HAMPTON MD on Oct 27 2022 12:14PM EST Thank you for allowing us to participate in the care of your patient. Should there be any questions regarding this interpretation, please call [phone]. If you are unable to reach us at the number above, please feel free to contact [facility] eRadiology at [phone]. DIVISION OF RADIOLOGY * * *Final Report* * * DATE OF EXAM: Oct 27 2022 11:28AM 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 Parotid and submandibular spaces are normal. Service Counter Cashier spaces appear normal. Infrahyoid Neck: Hypopharynx, larynx, [...] consolidation or mass. DIVISION OF RADIOLOGY [facility] * * *Final Report* * * DATE OF EXAM: Oct 27 2022 11:28AM 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 Parotid and submandibular spaces are normal. Service Counter Cashier spaces appear normal. Infrahyoid Neck: Hypopharynx, larynx, [...] evidence of abnormal lymph nodes. [email or web address] Transcribe Date/Time: Oct 27 2022 11:56A Dictated by: KATJA HAMPTON MD This examination was interpreted and the report reviewed and electronically signed by: KATJA HAMPTON MD on Oct 27 2022 12:14PM EST Thank you for allowing us to participate in the care of your patient. Should there be any questions regarding this interpretation, please call [phone]. If you are unable to reach us at the number above, please feel free to contact [facility] eRadiology at [phone]. [facility] CT Neck W contrast IVOrdered By: Dacia Provider on 10-27-2022 [facility] Comprehensive metabolic 2000 panelOrdered By: Kelly Goodson on 10-27-2022 Albumin [Mass/Vol] 4.3 g/dL 3.9 - 4.9 g/dL [facility] ALP [Catalytic activity/Vol] 89 U/L 38 - 113 U/L [facility] ALT [Catalytic activity/Vol] 7 U/L Low 10 - 54 U/L [facility] Anion gap [Moles/Vol] 10 mmol/L 9 - 18 mmol/L [facility] AST [Catalytic activity/Vol] 8 U/L Low 14 - 40 U/L [facility] Bilirubin [Mass/Vol] 0.3 mg/dL 0.2 - 1 .3 mg/dL [facility] Calcium [Mass/Vol] 9.6 mg/dL 8.5 - 10. 2 mg/dL [facility] Chloride [Moles/Vol] 104 mmol/L 97 - 10 5 mmol/L [facility] CO2 [Moles/Vol] 27 mmol/L 22 - 30 mmol/L [facility] Creatinine [Mass/Vol] 0.93 mg/dL 0.73 - 1.22 mg/dL [facility] GFR/1.73 sq M.predicted among non-blacks MDRD (S/P/Bld) [Vol rate/Area] 95 mL/min/{1.73_m2} - PINF [facility] Comment on above: Estimated Glomerular Filtration [...] [Mass/Vol] 98 mg/dL 74 - 99 mg/dL [facility] Comment on above: The [place] Diab[place] Association (ADA) provides guidance for [...] Standards of Medical Care in Diabetes 2016, [place] [employer]. Diabetes Care. 2016.39(Suppl 1). Interpretation and review of laboratory results Abnormal [facility] Potassium [Moles/Vol] 4.5 mmol/L 3.7 - 5.1 mmol/L [facility] Protein [Mass/Vol] 6.6 g/dL 6.3 - 8.0 g/dL [facility] Sodium [Moles/Vol] 141 mmol/L 136 - 144 mmol/L [facility] Urea nitrogen [Mass/Vol] 12 mg/dL 9 - 24 mg/dL [facility] No Panel Informationon 10-27 Radiology Study observation (narrative) [facility] Alanine aminotransferase [En zymatic activity/volume] in Serum or PlasmaOrdered By: Griselda Hastings on 10-24-2022 ALT [Catalytic activity/Vol] 7 U/L 7-52 [facility] Albumin [Mass/volume] in Ser um or Plasma by Bromocresol green (BCG) dye binding methoOrdered By: Griselda Hastings on 10-24-2022 Albumin BCG dye [Mass/Vol] 4.2 g/dL 3.5-5.7 [facility] Alkaline phosphatase [Enzyma tic activity/volume] in Serum or PlasmaOrdered By: Griselda Hastings on 10-24-2022 ALP [Catalytic activity/Vol] 76 U/L 34-104 [facility] Aspartate aminotransferase [ Enzymatic activity/volume] in Serum or PlasmaOrdered By: Griselda Hastings on 10-24-2022 AST [Catalytic activity/Vol] 10 U/L 13-39 [facility] Basophils Auto (Bld) [#/Vol] Ordered By: Griselda Hastings on 10-24-2022 Basophils (Bld) [#/Vol] 0.0 10*3/uL 0.0-0.2 [facility] Basophils/100 WBC Auto (Bld) Ordered By: Griselda Hastings on 10-24-2022 Basophils/100 WBC (Bld) 0.9 % . [facility] Bilirubin.total [Mass/volume ] in Serum or PlasmaOrdered By: Griselda Hastings on 10-24-2022 Bilirubin [Mass/Vol] 0.4 mg/dL 0.3-1.0 [facility] Calcium [Mass/volume] in Ser um or PlasmaOrdered By: Griselda Hastings on 10-24-2022 Calcium [Mass/Vol] 9.1 mg/dL 8.6-10.3 [facility] Carbon dioxide, total [Moles /volume] in Serum or PlasmaOrdered By: Griselda Hastings on 10-24-2022 CO2 [Moles/Vol] 28.3 mmol/L 21.0-31.0 [facility] Chloride [Moles/volume] in S r[place] or PlasmaOrdered By: Griselda Hastings on 10-24-2022 Chloride [Moles/Vol] 105 mmol/L 98-107 [facility] Cholesterol [Mass/volume] in Serum or PlasmaOrdered By: Griselda Hastings on 10-24-2022 Cholesterol [Mass/Vol] 240 mg/dL 140-200 [facility] Comment on above: Chol less than 200 m g/dl low riskChol 201-239 mg/dl borderline riskChol 240 mg/dl and greater high risk Cholesterol in LDL Calc [Mas s/Vol]Ordered By: Griselda Hastings on 10-24-2022 Cholesterol in LDL [Mass/Vol] 169 mg/dL 0-100 [facility] Comment on above: LDL ATP III CLASSIFI CATIONLDL less than 100 mg/dL OptimalLDL 100-129 mg/dL Near or above optimalLDL 130-159 mg/dL Borderline highLDL 160-189 mg/dL HighLDL greater than 189 mg/dL Very high Cholesterol in VLDL Calc [Ma ss/Vol]Ordered By: Griselda Hastings on 10-24-2022 Cholesterol in VLDL [Mass/Vol] 35 mg/dL [facility] Creatinine [Mass/volume] in Serum or PlasmaOrdered By: Griselda Hastings on 10-24-2022 Creatinine [Mass/Vol] 0.88 mg/dL 0.70-1.30 [facility] Eosinophils Auto (Bld) [#/Vo l]Ordered By: Griselda Hastings on 10-24-2022 Eosinophils (Bld) [#/Vol] 0.1 10*3/uL 0.0-0.45 [facility] Eosinophils/100 WBC Auto (Bl d)Ordered By: Griselda Hastings on 10-24-2022 Eosinophils/100 WBC (Bld) 2.0 % . [facility] Erythrocyte distribution wid th Auto (RBC) [Ratio]Ordered By: Griselda Hastings on 10-24-2022 Erythrocyte distribution width (RBC) [Ratio] 14.7 % 12.0-14.8 [facility] Globulin Calc (S) [Mass/Vol] Ordered By: Griselda Hastings on 10-24-2022 Globulin (S) [Mass/Vol] 2.1 g/dL [facility] Glucose [Mass/volume] in Ser um or PlasmaOrdered By: Griselda Hastings on 10-24-2022 Glucose [Mass/Vol] 82 mg/dL 70-100 [facility] Comment on above: ADA recommended refe rence rangeRandom Glucose Reference Range is dependent on time and content of last meal. Glucose of more than 200 mg/dL in a nonstressed, ambulatory subject supports the diagnosis of Diabetes Mellitus. Hematocrit Auto (Bld) [Volum e fraction]Ordered By: Griselda Hastings on 10-24-2022 Hematocrit (Bld) [Volume fraction] 43.4 % 38.8-50.0 [facility] Hemoglobin [Mass/volume] in BloodOrdered By: Griselda Hastings on 10-24-2022 Hemoglobin (Bld) [Mass/Vol] 14.5 g/dL 13.0-17.0 [facility] Leukocytes [#/volume] correc mone for nucleated erythrocytes in Blood by Automated counOrdered By: Griselda Hastings on 10-24-2022 WBC corrected for nucl RBC Auto (Bld) [#/Vol] 5.0 10*3/uL 4.1-10.5 [facility] Lymphocytes Auto (Bld) [#/Vo l]Ordered By: Griselda Hastings on 10-24-2022 Lymphocytes (Bld) [#/Vol] 2.0 10*3/uL 1.00-4.8 [facility] Lymphocytes/100 WBC Auto (Bl d)Ordered By: Griselda Hastings on 10-24-2022 Lymphocytes/100 WBC (Bld) 39.8 % . [facility] MCH Auto (RBC) [Entitic mass ]Ordered By: Griselda Hastings on 10-24-2022 MCH (RBC) [Entitic mass] 31.5 pg 27.5-35.2 [facility] MCHC Auto (RBC) [Mass/Vol]Or dered By: Griselda Hastings on 10-24-2022 MCHC (RBC) [Mass/Vol] 33.5 g/dL 32.5-35.6 [facility] MCV Auto (RBC) [Entitic vol] Ordered By: Griselda Hastings on 10-24-2022 MCV (RBC) [Entitic vol] 94.0 fL 83.5-101 [facility] Monocytes Auto (Bld) [#/Vol] Ordered By: Griselda Hastings on 10-24-2022 Monocytes (Bld) [#/Vol] 0.3 10*3/uL 0.0-0.8 [facility] Monocytes/100 WBC Auto (Bld) Ordered By: Griselda Hastings on 10-24-2022 Monocytes/100 WBC (Bld) 5.4 % . [facility] Neutrophils Auto (Bld) [#/Vo l]Ordered By: Griselda Hastings on 10-24-2022 Neutrophils (Bld) [#/Vol] 2.6 10*3/uL 1.8-7.7 [facility] Neutrophils/100 WBC Auto (Bl d)Ordered By: Griselda Hastings on 10-24-2022 Neutrophils/100 WBC (Bld) 51.9 % . [facility] No Panel InformationOrdered By: Griselda Hastings on 10-24-2022 Estimated GFR (CKD-EPI) > 60.0 mL/Min [facility] Creatinine Clearance (Chem N/A [facility] Nucleated erythrocytes [Pres ence] in Blood by Automated countOrdered By: Griselda Hastings on 10-24-2022 Nucleated RBC Auto Ql (Bld) 0.1 /100{WBC} 0-0.5 [facility] Platelet mean volume Auto (B ld) [Entitic vol]Ordered By: Griselda Hastings on 10-24-2022 Platelet mean volume (Bld) [Entitic vol] 9.6 fL 6.6-10.1 [facility] Platelets Auto (Bld) [#/Vol] Ordered By: Griselda Hastings on 10-24-2022 Platelets (Bld) [#/Vol] 247 10*3/uL 150-450 [facility] Potassium [Moles/volume] in Serum or PlasmaOrdered By: Griselda Hastings on 10-24-2022 Potassium [Moles/Vol] 4.0 mmol/L 3.5-5.1 [facility] Prostate specific Ag [Mass/v olume] in Serum or PlasmaOrdered By: Griselda Hastings on 10-24-2022 Prostate specific Ag [Mass/Vol] 0.370 ng/mL 0.000-4.00 0 [facility] Protein [Mass/volume] in Ser um or PlasmaOrdered By: Griselda Hastings on 10-24-2022 Protein [Mass/Vol] 6.3 g/dL 6.4-8.9 [facility] RBC Auto (Bld) [#/Vol]Ordere d By: Griselda Hastings on 10-24-2022 RBC (Bld) [#/Vol] 4.61 10*6/uL 3.90-5.60 [facility] Serum or plasma albumin/glob ulin mass ratioOrdered By: Griselda Hastings on 10-24-2022 Albumin/Globulin [Mass ratio] 2.0 {ratio} [facility] Serum or plasma anion gap de terminationOrdered By: Griselda Hastings on 10-24-2022 Anion gap [Moles/Vol] 11.7 mmol/L 6.0-15.0 [facility] Serum or plasma high density lipoprotein (HDL) cholesterol measurementOrdered By: Griselda Hastings on 10-24-2022 Cholesterol in HDL [Mass/Vol] 36 mg/dL 29-71 [facility] Comment on above: HDL CHOL ATP-III CLA SSIFICATION Cardiovascular RiskHDL > or equal to 60 mg/dL LOWHDL < 40 mg/dL HIGH Serum or plasma total choles terol/high density lipoprotein (HDL) cholesterol mass ratOrdered By: Griselda Hastings on 10-24-2022 Cholesterol.total/Chol esterol in HDL [Mass ratio] 6.7 {ratio} <5.0 [facility] Sodium [Moles/volume] in Ser um or PlasmaOrdered By: Griselda Hastings on 10-24-2022 Sodium [Moles/Vol] 141 mmol/L 136-145 [facility] Thyrotropin [Units/volume] i n Serum or PlasmaOrdered By: Griselda Hastings on 10-24-2022 TSH Qn 1.26 m[IU]/L 0.45-5.33 [facility] Triglyceride [Mass/volume] i n Serum or PlasmaOrdered By: Griselda Hastings on 10-24-2022 Triglyceride [Mass/Vol] 175 mg/dL 0-149 [facility] Comment on above: TRIG ATP III CLASSIF ICATIONTRIG less than 150 mg/dL NormalTRIG 150-199 mg/dL Borderline highTRIG 200-500 mg/dL High TRIG greater than 500 mg/dL Very highStandard traceable to the Center for Disease Conrtrol and Prevention (CDC) test method. Urea nitrogen [Mass/volume] in Serum or PlasmaOrdered By: Griselda Hastings on 10-24-2022 Urea nitrogen [Mass/Vol] 15 mg/dL 7-25 [facility] WBC Auto (Bld) [#/Vol]Ordere d By: Griselda Hastings on 10-24-2022 WBC (Bld) [#/Vol] 5.0 10*3/uL 4.1-10.5 [facility] BRIEF OP NOTon 09-28-2022 BRIEF OP NOT HNO ID: [id number] Author: Demond Cat APRN.CNP Service: Interventional Radiology Author Type: Nurse Practitioner Type: Brief Op Note Filed: 09/28/2022 3:14 PM Note Text: BRIEF OPERATIVE / PROCEDURE NOTE LOG ID: [id number] SURGERY/PROCEDURE DATE: 09/28/2022 INCISION/PROCEDURE START TIME: 1:58 PM INCISION CLOSE/PROCEDURE END TIME: 2:27 PM SURGEON(S)/PROCEDURALIST( S) AND ASSISTANT WAREHOUSE MANAGER(S): Surgeon(s) and Role: * Demond Cat APRN.BIOINFORMATICS SOFTWARE ENGINEER - Primary No Additional Staff SURGERY/PROCEDURE(S): LP [...] DIAGNOSIS: Same as Preop SIGNATURE: Demond Cat APRN.BIOINFORMATICS SOFTWARE ENGINEER PATIENT NAME: Jovani Melendez DATE: September 28, 2022 TIME: 3:10 PM [facility] IR LUMBAR PUNCTURE DIAGon IR LUMBAR [...] guidance was performed in conjunction with the limited radiology technician. Plane A, Air Kerma: 20.0 mGy Dose Area Product (DAP): 52396.1 mGy*cm2 Fluoro time: 3:54 min: sec Post-Procedure: [...] procedure was performed by: Demond Cat APRN.CNP Master Electrician: HARPER Transcribe Date/Time: Sep 28 2022 3:15P Dictated by : DEMOND CAT CNP This examination was interpreted and the report reviewed and electronically signed by: DEMOND CAT CNP on Sep 28 2022 3:22PM EST [id number] [facility] NURSING PROGon 09-28-2022 NURSING PROG HNO ID: [id number] Author: Court Magana RN Service: Nursing Author [...] Provider Electronically Signed By: Court Del Castillo [facility] MRI BRAIN WO/W IVCONon 09-22 [facility] COVID + FLU Quick Testingon 08-01-2022 SARS-CoV-2 (COVID-19) RNA JER+probe Ql (Unsp spec) Negative [facility] Other COVID + FLU Quick Testing neagative [facility] Other COVID + FLU Quick Testing Negative [facility] Other RSVon 08-01-2022 RSV Ag IA Ql (Unsp spec) Positive [facility] Other Cerebrospinal fluid post-valdez trifugation appearance determinationOrdered By: Elvi Cadena on 07-17-2022 Appearance (Spun CSF) Colorless Colorless [facility] Cerebrospinal fluid sample t ube volume measurementOrdered By: Elvi Cadena on 07-17-2022 Specimen volume (CSF) 22.0 mL [facility] Color CSFOrdered By: Elvi Cadena on 07-17-2022 Color (CSF) Colorless Colorless [facility] Manual cerebrospinal fluid e rythrocytes count (number/volume)Ordered By: Elvi Cadena on 07-17-2022 RBC Manual cnt (CSF) [#/Vol] 0 /uL [facility] Comment on above: The reference interv al and other method performance specifications have not been established for this body fluid. The test result must be integrated into the clinical context for interpretation. No Panel InformationOrdered By: Elvi Cadena on 07-17-2022 CSF Appearance Clear Clear [facility] CSF Tube Number Tube number: 1 [facility] Nucleated cells [#/volume] i n Cerebral spinal fluid by Manual countOrdered By: Elvi Cadena on 07-17-2022 Nucleated cells Manual cnt (CSF) [#/Vol] 0.003 10*3/uL 0-5 [facility] Activated partial thrombopla stin time (aPTT) in platelet poor plasma by coagulation aOrdered By: Loi Wong on 04-16-2022 aPTT Coag (PPP) [Time] 32.8 s 25.1-36.5 [facility] Basophils Auto (Bld) [#/Vol] Ordered By: Loi Wong on 04-16-2022 Basophils (Bld) [#/Vol] 0.1 10*3/uL 0.0-0.2 [facility] Basophils/100 WBC Auto (Bld) Ordered By: Loi Wong on 04-16-2022 Basophils/100 WBC (Bld) 1.2 % . [facility] Creatine kinase [Enzymatic a ctivity/volume] in Serum or PlasmaOrdered By: Loi Wong on 04-16-2022 CK [Catalytic activity/Vol] 69 U/L 22-269 [facility] Creatinine and Glomerular fi ltration rate.predicted panel (S/P/Bld)Ordered By: Loi Wong on 04-16-2022 Creatinine [Mass/Vol] 0.97 mg/dL 0.64-1.27 [facility] Eosinophils Auto (Bld) [#/Vo l]Ordered By: Loi Wong on 04-16-2022 Eosinophils (Bld) [#/Vol] 0.1 10*3/uL 0.0-0.45 [facility] Eosinophils/100 WBC Auto (Bl d)Ordered By: Loi Wong on 04-16-2022 Eosinophils/100 WBC (Bld) 1.2 % . [facility] Erythrocyte distribution wid th Auto (RBC) [Ratio]Ordered By: Loi Wong on 04-16-2022 Erythrocyte distribution width (RBC) [Ratio] 14.1 % 12.0-14.8 [facility] Estimated glomerular filtrat ion rate (GFR) non- AmericanOrdered By: Loi Wong on 04-16-2022 GFR/1.73 sq M.predicted among non-blacks MDRD (S/P/Bld) [Vol rate/Area] > 60 mL/Min [facility] Hematocrit Auto (Bld) [Volum e fraction]Ordered By: Loi Wong on 04-16-2022 Hematocrit (Bld) [Volume fraction] 43.2 % 38.8-50.0 [facility] Hemoglobin [Mass/volume] in BloodOrdered By: Loi Wong on 04-16-2022 Hemoglobin (Bld) [Mass/Vol] 14.7 g/dL 13.0-17.0 [facility] Laboratory - Chemistry and C hemistry - challengeOrdered By: Loi Wong on 04-16-2022 Natriuretic peptide B (Bld) [Mass/Vol] 29.0 pg/mL 5-100 [facility] Laboratory - CoagulationOrde red By: Loi Wong on 04-16-2022 PT Coag (PPP) [Time] 12.0 s 9.0-12.9 [facility] Laboratory - Hematology and Cell countsOrdered By: Loi Wong on 04-16-2022 Nucleated RBC/100 WBC (Bld) [Ratio] 0.1 % 0-0.5 [facility] Leukocytes [#/volume] in Blo od by Automated countOrdered By: Loi Wong on 04-16-2022 WBC (Bld) [#/Vol] 7.7 10*3/uL 4.5-11.0 [facility] Lymphocytes Auto (Bld) [#/Vo l]Ordered By: Loi Wong on 04-16-2022 Lymphocytes (Bld) [#/Vol] 2.3 10*3/uL 1.00-4.8 [facility] Lymphocytes/100 WBC Auto (Bl d)Ordered By: Loi Wong on 04-16-2022 Lymphocytes/100 WBC (Bld) 29.4 % . [facility] MCH Auto (RBC) [Entitic mass ]Ordered By: Loi Wong on 04-16-2022 MCH (RBC) [Entitic mass] 32.0 pg 27.5-35.2 [facility] MCHC Auto (RBC) [Mass/Vol]Or dered By: Loi Wong on 04-16-2022 MCHC (RBC) [Mass/Vol] 34.0 g/dL 32.5-35.6 [facility] MCV Auto (RBC) [Entitic vol] Ordered By: Loi Wong on 04-16-2022 MCV (RBC) [Entitic vol] 94.0 fL 83.5-101 [facility] Monocytes Auto (Bld) [#/Vol] Ordered By: Loi Wong on 04-16-2022 Monocytes (Bld) [#/Vol] 0.6 10*3/uL 0.0-0.8 [facility] Monocytes/100 WBC Auto (Bld) Ordered By: Loi Wong on 04-16-2022 Monocytes/100 WBC (Bld) 7.7 % . [facility] Neutrophils Auto (Bld) [#/Vo l]Ordered By: Loi Wong on 04-16-2022 Neutrophils (Bld) [#/Vol] 4.7 10*3/uL 1.8-7.7 [facility] Neutrophils/100 WBC Auto (Bl d)Ordered By: Loi Wong on 04-16-2022 Neutrophils/100 WBC (Bld) 60.5 % . [facility] No Panel InformationOrdered By: Loi Wong on 04-16-2022 D-Dimer Quantitative (PE/DVT) < 200 ng/mL 0-243 [facility] Comment on above: The reference range [...] conditions. Estimated GFR () > 60 mL/Min [facility] Comment on above: GFR estimated refere nce range: According to KDOQI guidelines, <60 ml/min/1.73m2 is sufficient to diagnose a patient with chronic kidney disease. Pharmacy Creatinine Clearance (Chem 79.33 [facility] Platelet mean volume Auto (B ld) [Entitic vol]Ordered By: Loi Wong on 04-16-2022 Platelet mean volume (Bld) [Entitic vol] 9.7 fL 6.6-10.1 [facility] Platelet poor plasma interna tional normalized ratio (INR) by coagulation assay (relatOrdered By: Loi Wong on 04-16-2022 INR Coag (PPP) [Relative time] 1.1 {INR} [facility] Comment on above: INR Therapeutic Rang [...] 04-16-2022 Platelets (Bld) [#/Vol] 238 10*3/uL 150-450 [facility] RBC Auto (Bld) [#/Vol]Ordere d By: Loi Wong on 04-16-2022 RBC (Bld) [#/Vol] 4.59 10*6/uL 3.90-5.60 [facility] Serum or plasma anion gap de terminationOrdered By: Loi Wong on 04-16-2022 Anion gap [Moles/Vol] 12.4 mmol/L 6.0-15.0 [facility] Serum or plasma calcium paramjit urement (mass/volume)Ordered By: Loi Wong on 04-16-2022 Calcium [Mass/Vol] 9.0 mg/dL 8.2-10.2 [facility] Serum or plasma chloride robby surement (moles/volume)Ordered By: Loi Wong on 04-16-2022 Chloride [Moles/Vol] 103 mmol/L 95-114 [facility] Serum or plasma creatine kin ase MB (CKMB)/total creatine kinase (CK) ratio by calculaOrdered By: Loi Wong on 04-16-2022 CK.MB Calc [Catalytic fraction] 2.0 % 0.00-2.50 [facility] Serum or plasma creatine kin ase MB measurement (mass/volume)Ordered By: Loi Wong on 04-16-2022 CK.MB [Mass/Vol] 1.4 ng/mL 0.6-6.3 [facility] Serum or plasma glucose paramjit urement (mass/volume)Ordered By: Loi Wong on 04-16-2022 Glucose [Mass/Vol] 88 mg/dL 70-100 [facility] Comment on above: ADA recommended refe rence rangeRandom Glucose Reference Range is dependent on time and content of last meal. Glucose of more than 200 mg/dL in a nonstressed, ambulatory subject supports the diagnosis of Diabetes Mellitus. Serum or plasma potassium me asurement (moles/volume)Ordered By: Loi Wong on 04-16-2022 Potassium [Moles/Vol] 4.3 mmol/L 3.5-5.1 [facility] Serum or plasma sodium measu rement (moles/volume)Ordered By: Loi Wong on 04-16-2022 Sodium [Moles/Vol] 135 mmol/L 136-146 [facility] Serum or plasma total carbon dioxide measurement (moles/volume)Ordered By: Loi Wong on 04-16-2022 CO2 [Moles/Vol] 23.9 mmol/L 22.0-30.0 [facility] Serum or plasma urea nitroge n measurement (mass/volume)Ordered By: Loi Wong on 04-16-2022 Urea nitrogen [Mass/Vol] 12 mg/dL 03-10 [facility] Troponin I.cardiac [Mass/vol ume] in Serum or Plasma by High sensitivity methodOrdered By: Loi Wong on 04-16-2022 Troponin I.cardiac High sensitivity method [Mass/Vol] 5 pg/mL 0- [facility] COVID Quick Testingon 2021 Result Negative [facility] Other Quick Fluon 03-16-2022 FLUAV Ab CF (S) [Titer] Negative [facility] Other FLUBV Ab CF (S) [Titer] Negative [facility] Other MRI Brain w/o + w/on 022 [...] by Jillian Morales on 01/18/2022 1413 Normal [facility] Cell Count + Differential, C SFon 11-07-2021 WBC (Bld) [#/Vol] 0.006 10*3/uL above high threshold 0 - 5 [facility] [employer] Work Phone: [phone] Cell Count + Differential, CSF 70 1 [facility] [employer] Work Phone: [phone] Cell Count + Differential, CSF 10 % [facility] [employer] Work Phone: [phone] Cell Count + Differential, CSF 60 % [facility] Work Phone: [phone] Cell Count + Differential, CSF 30 % [facility] Work Phone: [phone] Cell Count + Differential, CSF Colorless COLORLESS [facility] [employer] Work Phone: [phone] Cell Count + Differential, CSF 245 /uL above high threshold 0 - 5 [facility] Work Phone: [phone] Cell Count + Differential, CSF Tube 1 [facility] [employer] Work Phone: [phone] Cell Count + Differential, CSF Clear CLEAR [facility] [employer] Work Phone: [phone] Cult, CSF, includes [...] 36 mg/dL above high threshold 0-35 [facility] Work Phone: [phone] Albumin [Mass/Vol] 4578 mg/dL [phone] [facility] [employer] Work Phone: [phone] IgG (CSF) [Mass/Vol] 2.2 mg/dL 0.0-6.0 MG[facility]N [facility] [employer] Work Phone: [phone] IgG [Mass/Vol] 496 mg/dL below low threshold [phone] [facility] [employer] Work Phone: [phone] Comment on above: REFERENCE INTERVAL: Immunoglobulin GAccess complete set of age- and/or gender-specific reference intervals for this test in the [facility] Test Directory (Rupture). IgG clearance/Albumin clearance (S+CSF) [Ratio] 0.56 {ratio} [...] sclerosis will have a negative result.Performed By: [employer] [place] [address] [id number] Director: Paula Middleton MD Albumin (CSF) [Mass/Vol] Canceled [facility] Work Phone: [phone] Albumin [Mass/Vol] Canceled [facility] [employer] Work Phone: [phone] Glucose (CSF) [Mass/Vol] 56 mg/dL 40 - 70 [facility] Work Phone: [phone] IgG (CSF) [Mass/Vol] Canceled [facility] Work Phone: [phone] IgG [Mass/Vol] Canceled [facility] [employer] Work Phone: [phone] IgG clearance/Albumin clearance [...] above high threshold 15 - 45 [facility] -[facility] Work Phone: No Panel Informationon 11-07 0 {Bands} 0-1 [facility] Work Phone: [facility] -[facility] Work Phone: Canceled [facility] -[facility] Work Phone: Path Review, CSFon Path Review, CSF R.REHANA [facility] [employer] Work Phone: Comment on above: By her/his signature above, the Pathologist listed as making the final interpretation certifies that she/he has personally reviewed this case. HEMORRHAGIC SPECIMEN, NO MALIGNANT CELLS IDENTIFIED. 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 In [...] He saw Dr. Ba a neurologist in [facility]. He describes his vision as [...] MG Oral Tablet Vitals Vital Signs Recorded: [id number] 09:38AM Bqyzrlkocpy67.2 F Heart Rate63 Fnwttqjdcrg30 Yhjqvgdi633 Mcbynifbj00 Blood Pressure Cuff SizeAdult Height5 ft 7.13 in Qkinit793 lb 6 oz BMI Pxopwmefds45.05 kg/m2 BSA Calculated1.91 Tobacco Usea) Yes Fall Screeninga) No falls within the last year O2 Sxpqdvwbkg53 Pain Scale7 Physical Exam Constitutional - General appearance: No acute distress, well de (more content not included)... 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 In [...] Dr. Rodrigez for diagnosis. I have asked Kataj Cordoba to see the patient and she [...] He saw Dr. Ba a neurologist in [facility]. He describes his vision as [...] MG Oral Tablet Vitals Vital Signs Recorded: [id number] 09:38AM Cncxfamhthz72.2 F Heart Rate63 Rlsuztomqaf92 Ljrnhjlu404 Iepxhnuqk09 Blood Pressure Cuff SizeAdult Height5 ft 7.13 in Dtfcmw137 lb 6 oz BMI Reifztncwt36.05 kg/m2 BSA Calculated1.91 Tobacco Usea) Yes Fall Screeninga) No falls within the last year O2 Uispswkjfg02 Pain Scale7 Ph (more content not included)... Normal [facility] CBC W Auto Differential pane l (Bld)on 10-06-2021 Basophils (Bld) [#/Vol] 0.06 10*3/uL [facility] Basophils/100 WBC (Bld) 0.8 % [facility] Differential cell count method Nom (Bld) Auto [facility] Eosinophils (Bld) [#/Vol] 0.11 10*3/uL [facility] Eosinophils/100 WBC (Bld) 1.5 % [facility] Erythrocyte distribution width (RBC) [Ratio] 12.8 % 11.5 - 15.0 % [facility] Hematocrit (Bld) [Volume fraction] 43.7 % 39.0 - 51.0 % [facility] Hemoglobin (Bld) [Mass/Vol] 14.6 g/dL 13.0 - 17.0 g/dL [facility] Immature granulocytes (Bld) [#/Vol] [facility] Immature granulocytes/100 WBC (Bld) 0.3 % [facility] Lymphocytes (Bld) [#/Vol] 1.75 10*3/uL [facility] Lymphocytes/100 WBC (Bld) 23.7 % [facility] MCH (RBC) [Entitic mass] 32.7 pg 26.0 - 34.0 pg [facility] MCHC (RBC) [Mass/Vol] 33.4 g/dL 30.5 - 36.0 g/dL [facility] MCV (RBC) [Entitic vol] 98.0 fL 80.0 - 100.0 fL [facility] Monocytes (Bld) [#/Vol] 0.52 10*3/uL NINF [facility] Monocytes/100 WBC (Bld) 7.0 % [facility] Neutrophils (Bld) [#/Vol] 4.92 10*3/uL [facility] Neutrophils/100 WBC (Bld) 66.7 % [facility] Nucleated RBC (Bld) [#/Vol] NINF [facility] Nucleated RBC/100 WBC (Bld) [Ratio] 0.0 % /100 WBC [facility] Platelet mean volume (Bld) [Entitic vol] 10.8 fL 9.0 - 12.7 fL [facility] Platelets (Bld) [#/Vol] 246 10*3/uL [facility] RBC (Bld) [#/Vol] 4.46 10*6/uL 4.20 - 6.00 m/uL [facility] WBC (Bld) [#/Vol] 7.38 10*3/uL [facility] This is an appended report. These results have been appended to a previously verified report. [facility] CT Chest W contrast Tristin IMPRESSION: [...] any questions regarding this interpretation, please call [phone]. If you are unable to reach us at the number above, please feel free to contact [facility] eRadiology at [phone]. MATHEW_DO_NOT_US E_DIVISION OF RADIOLOGY * * *Final Report* * * DATE OF EXAM: Oct 06 2021 8:22AM [facility] 0539 - CT CHEST W IVCON [...] images through the upper abdomen appear stable. Cake Winder (topogram) images: No additional findings. ZZZ_DO_NOT_US E_DIVISION OF RADIOLOGY Provider, [facility] - 10/06/2021 * * *Final Report* * * DATE OF EXAM: Oct 06 2021 8:22AM [facility] 0539 - CT CHEST W IVCON [...] images through the upper abdomen appear stable. Cake Winder (topogram) images: No additional findings. IMPRESSION IMPRESSION: [...] any questions regarding this interpretation, please call [phone]. If you are unable to reach us at the number above, please feel free to contact [facility] eRadiology at [phone]. [facility] CT Neck W contrast Tristin 04-2 [...] any questions regarding this interpretation, please call [phone]. If you are unable to reach us at the number above, please feel free to [facility] at [phone]. ZZZ_DO_NOT_US E_DIVISION OF RADIOLOGY * * *Final Report* * * DATE OF EXAM: Oct 06 2021 8:22AM [facility] 0013 - CT NECK SOFT TISSUE [...] ZZZ_DO_NOT_US E_DIVISION OF RADIOLOGY Provider, Dacia Nieto [facility] - 10/06/2021 * * *Final Report* * * DATE OF EXAM: Oct 06 2021 8:22AM [facility] 0013 - CT NECK SOFT TISSUE [...] any questions regarding this interpretation, please call [phone]. If you are unable to reach us at the number above, please feel free to contact [facility] eRadiology at [phone]. [facility] CT Neck W contrast IVOrdered By: Ccf Provider on 10-06-2021 [facility] Comprehensive metabolic 2000 panelOrdered By: Micheal Vizcaino on 10-06-2021 Albumin [Mass/Vol] 4.5 g/dL 3.9 - 4.9 g/dL [facility] ALP [Catalytic activity/Vol] 82 U/L 38 - 113 U/L [facility] ALT [Catalytic activity/Vol] 25 U/L 10 - 54 U/L [facility] Anion gap [Moles/Vol] 10 mmol/L 9 - 18 mmol/L [facility] AST [Catalytic activity/Vol] 21 U/L 14 - 40 U/L [facility] Bilirubin [Mass/Vol] 0.6 mg/dL 0.2 - 1 .3 mg/dL [facility] Calcium [Mass/Vol] 9.5 mg/dL 8.5 - 10. 2 mg/dL [facility] Chloride [Moles/Vol] 106 mmol/L High 97 - 10 5 mmol/L [facility] CO2 [Moles/Vol] 29 mmol/L 22 - 30 mmol/L [facility] Creatinine [Mass/Vol] 1.01 mg/dL 0.73 - 1.22 mg/dL [facility] GFR/1.73 sq M.predicted among non-blacks MDRD (S/P/Bld) [Vol rate/Area] 86 mL/min/{1.73_m2} - PINF [facility] Comment on above: Estimated Glomerular Filtration [...] 107 mg/dL High 74 - 99 mg/dL [facility] Comment on above: The [place] Diab[place] Association (ADA) provides guidance for [...] Standards of Medical Care in Diabetes 2016, [place] [employer]. Diabetes Care. 2016.39(Suppl 1). Interpretation and review of laboratory results Abnormal [facility] Potassium [Moles/Vol] 4.2 mmol/L 3.7 - 5.1 mmol/L [facility] Protein [Mass/Vol] 6.5 g/dL 6.3 - 8.0 g/dL [facility] Sodium [Moles/Vol] 145 mmol/L High 136 - 144 mmol/L [facility] Urea nitrogen [Mass/Vol] 10 mg/dL 9 - 24 mg/dL [facility] No Panel Informationon 10-06 Radiology Study observation (narrative) [facility] COVID + FLU Quick Testingon 06-30-2021 SARS-CoV-2 (COVID-19) RNA JER+probe Ql (Unsp spec) Negative [facility] Other COVID + FLU Quick Testing Negative [facility] Other COVID Quick Testingon 2020 Result Negative [facility] Other Basophils Auto (Bld) [#/Vol] on 09-20-2020 Basophils (Bld) [#/Vol] 0.0 10*3/uL 0.0-0.2 [facility] Basophils/100 WBC Auto (Bld) on 09-20-2020 Basophils/100 WBC (Bld) 0.6 % [facility] Blood hemoglobin measurement (mass/volume)on 09-20-2020 Hemoglobin (Bld) [Mass/Vol] 14.4 g/dL 13.0-17.0 [facility] Blood leukocytes automated c ount (number/volume)on 09-20-2020 WBC (Bld) [#/Vol] 7.4 10*3/uL 4.5-11.0 [facility] Eosinophils Auto (Bld) [#/Vo l]on 09-20-2020 Eosinophils (Bld) [#/Vol] 0.1 10*3/uL 0.0-0.45 [facility] Eosinophils/100 WBC Auto (Bl d)on 09-20-2020 Eosinophils/100 WBC (Bld) 0.9 % [facility] Erythrocyte distribution wid th Auto (RBC) [Ratio]on 09-20-2020 Erythrocyte distribution width (RBC) [Ratio] 14.6 % 12.0-14.8 [facility] Hematocrit Auto (Bld) [Volum e fraction]on 09-20-2020 Hematocrit (Bld) [Volume fraction] 41.7 % 38.8-50.0 [facility] Lymphocytes Auto (Bld) [#/Vo l]on 09-20-2020 Lymphocytes (Bld) [#/Vol] 1.6 10*3/uL 1.00-4.8 [facility] Lymphocytes/100 WBC Auto (Bl d)on 09-20-2020 Lymphocytes/100 WBC (Bld) 21.3 % [facility] MCH Auto (RBC) [Entitic mass ]on 09-20-2020 MCH (RBC) [Entitic mass] 32.4 pg 27.5-35.2 [facility] MCHC Auto (RBC) [Mass/Vol]on 09-20-2020 MCHC (RBC) [Mass/Vol] 34.5 g/dL 32.5-35.6 [facility] MCV Auto (RBC) [Entitic vol] on 09-20-2020 MCV (RBC) [Entitic vol] 93.9 fL 83.5-101 [facility] Monocytes Auto (Bld) [#/Vol] on 09-20-2020 Monocytes (Bld) [#/Vol] 0.6 10*3/uL 0.0-0.8 [facility] Monocytes/100 WBC Auto (Bld) on 09-20-2020 Monocytes/100 WBC (Bld) 8.6 % [facility] Neutrophils Auto (Bld) [#/Vo l]on 09-20-2020 Neutrophils (Bld) [#/Vol] 5.1 10*3/uL 1.8-7.7 [facility] Neutrophils/100 WBC Auto (Bl d)on 09-20-2020 Neutrophils/100 WBC (Bld) 68.6 % [facility] Otheron 09-20-2020 Nucleated RBC/100 WBC (Bld) [Ratio] 0.0 % 0-0.5 [facility] Platelet mean volume Auto (B ld) [Entitic vol]on 09-20-2020 Platelet mean volume (Bld) [Entitic vol] 9.3 fL 6.6-10.1 [facility] Platelets Auto (Bld) [#/Vol] on 09-20-2020 Platelets (Bld) [#/Vol] 182 10*3/uL 150-450 [facility] RBC Auto (Bld) [#/Vol]on RBC (Bld) [#/Vol] 4.44 10*6/uL 3.90-5.60 [facility] Body fluid albumin measureme nt (mass/volume)on 09-13-2020 Albumin (Body fld) [Mass/Vol] 4.3 g/dL 3.2-5.5 [facility] Cholesterol [Mass/volume] in Serum or Plasmaon 09-13-2020 Cholesterol [Mass/Vol] 219 mg/dL 140-200 [facility] Comment on above: Chol less than 200 m g/dl low riskChol 201-239 mg/dl borderline riskChol 240 mg/dl and greater high risk Cholesterol in LDL Calc [Mas s/Vol]on 09-13-2020 Cholesterol in LDL [Mass/Vol] 149 mg/dL 0-100 [facility] Comment on above: LDL ATP III CLASSIFI CATIONLDL less than 100 mg/dL OptimalLDL 100-129 mg/dL Near or above optimalLDL 130-159 mg/dL Borderline highLDL 160-189 mg/dL HighLDL greater than 189 mg/dL Very high Cholesterol in VLDL Calc [Ma ss/Vol]on 09-13-2020 Cholesterol in VLDL [Mass/Vol] 28 mg/dL [facility] Creatinine and Glomerular fi ltration rate.predicted panel (S/P/Bld)on 09-13-2020 Creatinine [Mass/Vol] 0.89 mg/dL 0.64-1.27 [facility] GFR/1.73 sq M.predicted roverto g non-blacks MDRD (S/P/Bld) [Vol rate/Area]on 09-13-2020 GFR/1.73 sq M predicted among non-blacks MDRD (S/P/Bld) [Vol rate/Area] > 60 mL/Min [facility] Globulin Calc (S) [Mass/Vol] on 09-13-2020 Globulin (S) [Mass/Vol] 2.0 g/dL [facility] No Panel Informationon 09-13 Estimated GFR () > 60 mL/Min [facility] Comment on above: GFR estimated refere nce range: According to KDOQI guidelines, <60 ml/min/1.73m2 is sufficient to diagnose a patient with chronic kidney disease. Otheron 09-13-2020 GFR/1.73 sq M.predicted MDRD (S/P/Bld) [Vol rate/Area] > 60 mL/Min [facility] Comment on above: GFR estimated refere nce range: According to KDOQI guidelines, <60 ml/min/1.73m2 is sufficient to diagnose a patient with chronic kidney disease. Pharmacy Creatinine Clearance (Chem N/A [facility] Prostate Specific Antigen Screen 0.480 ng/mL 0.000-4.00 0 [facility] Protein [Mass/volume] in Ser um or Plasmaon 09-13-2020 Protein [Mass/Vol] 6.3 g/dL 6.1-7.9 [facility] SARS-CoV-2 (COVID-19) IgG Ab [Presence] in Serum or Plasma by Immunoassayon 09-13-2020 SARS-CoV-2 (COVID-19) IgG Ab [Presence] in Serum or Plasma by Immunoassay Positive Negative [facility] Comment on above: Results suggest rece nt [...] including the receptor binding domain (RBD).Performed at: [address] [id number] Director: Florencio Wu PhD, Phone: [phone] SARS-CoV-2 (COVID-19) IgG IA Ql Positive Negative [facility] Comment on above: Results suggest rece nt [...] including the receptor binding domain (RBD).Performed at: [address] [id number] Director: Florencio Wu PhD, Phone: [phone] Serum or plasma alanine mclaughlin otransferase measurement without P-5'-P (enzymatic activion 09-13-2020 ALT No additional P-5'-P [Catalytic activity/Vol] 19 U/L [facility] Serum or plasma albumin/glob ulin mass ratioon 09-13-2020 Albumin/Globulin [Mass ratio] 2.2 {ratio} [facility] Serum or plasma alkaline fuentes sphatase measurement (enzymatic activity/volume)on 09-13-2020 ALP [Catalytic activity/Vol] 53 U/L 3292 [facility] Serum or plasma aspartate am inotransferase measurement (enzymatic activity/volume)on 09-13-2020 AST [Catalytic activity/Vol] 22 U/L 10 [facility] Serum or plasma calcium paramjit urement (mass/volume)on 09-13-2020 Calcium [Mass/Vol] 9.1 mg/dL 8.2-10.2 [facility] Serum or plasma chloride robby surement (moles/volume)on 09-13-2020 Chloride [Moles/Vol] 105 mmol/L 95-114 [facility] Serum or plasma glucose paramjit urement (mass/volume)on [...] 09-13-2020 Cholesterol in HDL [Mass/Vol] 41 mg/dL [facility] Comment on above: HDL CHOL ATP-III CLA SSIFICATION Cardiovascular RiskHDL > or equal to 60 mg/dL LOWHDL < 40 mg/dL HIGH Serum or plasma potassium me asurement (moles/volume)on 09-13-2020 Potassium [Moles/Vol] 4.2 mmol/L 3.5-5.1 [facility] Serum or plasma sodium measu rement (moles/volume)on 09-13-2020 Sodium [Moles/Vol] 135 mmol/L 136-146 [facility] Serum or plasma thyroid stim ulating hormone (TSH) measurement by high sensitivity meton 09-13-2020 TSH Qn 1.66 u[iU]/mL 0.45-5.33 [facility] Serum or plasma total biliru bin measurement (mass/volume)on 09-13-2020 Bilirubin [Mass/Vol] 0.9 mg/dL 0.3-1.2 [facility] Serum or plasma total carbon dioxide measurement (moles/volume)on 09-13-2020 CO2 [Moles/Vol] 22.5 mmol/L 22.0-30.0 [facility] Serum or plasma total choles terol/high density lipoprotein (HDL) cholesterol mass gia 09-13-2020 Cholesterol.total/Chol esterol in HDL [Mass ratio] 5.3 {ratio} [facility] Serum or plasma urea nitroge n measurement (mass/volume)on 09-13-2020 Urea nitrogen [Mass/Vol] 12 mg/dL 9-23 [facility] TSH DL <= 0.005 mIU/L Qnon 0 09-13-2020 TSH Qn 1.66 m[IU]/L 0.45-5.33 [facility] Triglyceride [Mass/volume] i n Serum or Plasmaon 09-13-2020 Triglyceride [Mass/Vol] 144 mg/dL 35-149 [facility] Comment on above: TRIG ATP III CLASSIF [...] eye. Coleen Grajeda M.D. aek Dictated: 04/14/2019 #[id number] Typed 04/14/2019 #[id number] cc: Coleen Grajeda M.D. [facility] Comment on above: Result Comment: Elec tronically Signed By: Coleen Grjaeda MD\Date and Time Signed: 04/18/19 09:54 EDT [...] and inferior fornices of the eye. A [employer] Development[employer] manometer was set on the eye at [...] condition. Coleen Grajeda M.D. gls Dictated: 04/14/2019 #[id number] Typed: 04/15/2019 #[id number] cc: Coleen Grajeda M.D. [facility] Comment on above: Result Comment: Elec tronically Signed By: Coleen Grajeda MD\.br\Date and Time Signed: 04/18/19 09:54 EDT Coding Summary.on 04-15-2019 Coding Summary. 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 Name: JOVANI MELENDEZ/Sex: 1960 Male Med Rec #: [id number] Physician: Coleen Grajeda MD Financial #: [id number] Pt. Type: A Room/Bed: [facility]07/19 Admit/Disch: 04/14/19 12:59:00 - 04/14/19 16:00:00 [...] Performed Surgeon - Primary Scrub - Primary Pharmaceutical Officer - Primary Time In 04/14/19 14:55:00 04/14/19 [...] VERNON, Pauly GOODEN, RN, Tierra Role Performed Pharmaceutical Officer - Primary Pharmaceutical Officer - Relief Time In 04/14/19 14:55:00 04/14/19 [...] Unable to Visualize, Outcomes Met? Yes Warm, [place], Dry Last Modified By: Johnathon Karimi RN [...] RN Patient Status Stable Skin. Condition Warm, [place], Dry Description unchanged Airway Maintenance Oxygen in [...] safely administered during the perioperative period For [facility] please see scanned medication reconcilliation form for medications used at the field during the procedure. Implant Log FT Pre-Care Text: Records devices implanted during the operative or invasive procedure Entry 1 Procedure CATARACT EXTRACTION W/ Implant/Explant Implant INTRAOCULAR LENS(Left) Implant Identification FT Description MONTY IOL [id number] SOFPORT Serial Number [id number] SIZE 21.0 [[id number] 21.0][F] Lot Number [id number] Center Punch Operator FT-[employer]USCH [employer] LOM[employer] Catalog ?# [id number] 21.0[F] Expiration Date 10/16/23 Unique Device [id number] Identifier (BERNARD) Usage Data FT Implant Site [...] 15:16 Asya Alves CST 04/15/19 14:44 Normal [facility] Inpatient Patient Summaryon 04-14-2019 Inpatient Patient Summary [facility] Clinical Discharge Instructions PERSON INFORMATION Name: JOVANI MELENDEZ PHYSICIANS Admitting Physician: Coleen Grajeda MD Attending Physician: Coleen Grajeda MD PCP: JILLIAN BARONE DO Discharge Diagnosis: Cataract Comment: PATIENT EDUCATION INFORMATION Instructions: Medication Leaflets: Follow up: With: Address: When: Coleen Grajeda [address], [place] [address] Business (1) Comments: Call physician if symptoms worsen Keep scheduled appointment MEDICATION LIST Comment: Normal [facility] Main OR PACU II Recordon Main OR PACU II Record PACU Phase II Doc ument Type FT Summary Primary Physician: Coleen Grajeda MD Finalized Date/Time: 04/14/19 17:54:42 Pt. Name: JOVANI MELENDEZ D.O.B./Sex: 1960 Male Med Rec #: [id number] Physician: Coleen Grajeda MD Financial #: [id number] Pt. Type: A Room/Bed: [facility]07/19 Admit/Disch: 04/14/19 12:59:23 - Institution: Case [...] By: Lizeth Rush RN 04/14/19 17:54 Normal [facility] Main OR Preoperative Recordo n 04-14-2019 Main OR Preoperative Record PreOp Document Type FT Summary Primary Physician: Coleen Grajeda MD Finalized Date/Time: 04/14/19 15:14:03 Pt. Name: JOVANI MELENDEZ /Sex: 1960 Male Med Rec #: [id number] Physician: Coleen Grajeda MD Financial #: [id number] Pt. Type: A Room/Bed: [facility]07/19 Admit/Disch: 04/14/19 12:59:23 - Institution: Case [...] By: Johnathon Karimi RN 04/14/19 15:14 Normal [facility] Patient Education - Texton 1 Patient Education - Text [facility] Vital Signs Date Time Vital Sign Value Performing Clinician Facility 01-12-2025 15:20-0400 Body height 172.72 cm Griselda Sharelooks DO Work Phone: [facility] 01-12-2025 15:20-0400 Body mass index (BMI) [Ratio] 27 kg/m2 Griselda Kuns DO Work Phone: [facility] 01-12-2025 15:20-0400 Body weight 80.73 kg Griselda Sharelooks DO Work Phone: [facility] 01-12-2025 15:20-0400 Diastolic blood pressure 74 mm[Hg] Griselda Sharelooks DO Work Phone: [facility] 01-12-2025 15:20-0400 Heart rate 76 /min Griselda Kuns DO Work Phone: [facility] 01-12-2025 15:20-0400 Systolic blood pressure 120 mm[Hg] Griselda Kuns DO Work Phone: [facility] 12-24-2024 14:12-0400 Body mass index (BMI) [Ratio] 25.09 kg/m2 Elvi Cadena MD Work Phone: [facility] 12-24-2024 14:12-0400 Body weight 74.84 kg Elvi Cadena MD Work Phone: [facility] 12-24-2024 14:12-0400 Diastolic blood pressure 87 mm[Hg] Elvi Cadena MD Work Phone: [facility] 12-24-2024 14:12-0400 Heart rate 85 /min Elvi Cadena MD Work Phone: [facility] 12-24-2024 14:12-0400 Systolic blood pressure 125 mm[Hg] Elvi Cadena MD Work Phone: [facility] 11-19-2024 14:04-0400 Body height 172.72 cm Griselda Kuns DO Work Phone: [facility] 11-19-2024 14:04-0400 Body temperature 100.7 [degF] Griselda Kuns DO Work Phone: [facility] 11-19-2024 14:04-0400 Heart rate 96 /min Griselda Kuns DO Work Phone: [facility] 11-19-2024 14:04-0400 Respiratory rate 18 /min Griselda Kuns DO Work Phone: [facility] 11-19-2024 14:04-0400 SaO2% (BldA) [Mass fraction] 99 % Griselda Kuns DO Work Phone: [facility] 11-17-2024 14:03-0400 Body height 172.72 cm Griselda Kuns DO Work Phone: [facility] 11-17-2024 14:03-0400 Body mass index (BMI) [Ratio] 26.3 kg/m2 Griselda Kuns DO Work Phone: [facility] 11-17-2024 14:03-0400 Body weight 78.47 kg Griselda Kuns DO Work Phone: [facility] 11-17-2024 14:03-0400 Diastolic blood pressure 80 mm[Hg] Griselda Kuns DO Work Phone: [facility] 11-17-2024 14:03-0400 Heart rate 109 /min Griselda Kuns DO Work Phone: [facility] 11-17-2024 14:03-0400 Systolic blood pressure 120 mm[Hg] Griselda Kuns DO Work Phone: [facility] 11-05-2024 10:30-0400 Diastolic blood pressure 76 mm[Hg] Griselda Kuns DO Work Phone: [facility] 11-05-2024 10:30-0400 Heart rate 71 /min Griselda Kuns DO Work Phone: [facility] 11-05-2024 10:30-0400 Respiratory rate 20 /min Griselda Kuns DO Work Phone: [facility] 11-05-2024 10:30-0400 SaO2% (BldA) [Mass fraction] 98 % Griselda Kuns DO Work Phone: [facility] 11-05-2024 10:30-0400 Systolic blood pressure 110 mm[Hg] Griselda Kuns DO Work Phone: [facility] 11-05-2024 07:12-0400 Body height 172.72 cm Griselda Kuns DO Work Phone: [facility] 11-05-2024 07:12-0400 Body weight 77.11 kg Griselda Kuns DO Work Phone: [facility] 10-27-2024 09:57-0400 Body height 172.72 cm Griselda Kuns DO Work Phone: [facility] 10-27-2024 09:57-0400 Body mass index (BMI) [Ratio] 26.4 kg/m2 Griselda Kuns DO Work Phone: [facility] 10-27-2024 09:57-0400 Body weight 78.92 kg Grisleda Kuns DO Work Phone: [facility] 10-27-2024 09:57-0400 Diastolic blood pressure 64 mm[Hg] Grsielda Kuns DO Work Phone: [facility] 10-27-2024 09:57-0400 Heart rate 64 /min Griselda Kuns DO Work Phone: [facility] 10-27-2024 09:57-0400 Respiratory rate 18 /min Griselda Kuns DO Work Phone: [facility] 10-27-2024 09:57-0400 SaO2% (BldA) [Mass fraction] 98 % Griselda Kuns DO Work Phone: [facility] 10-27-2024 09:57-0400 Systolic blood pressure 110 mm[Hg] Griselda Kuns DO Work Phone: [facility] 10-13-2024 09:06-0400 Body height 172.7 cm Camille Harris MD Work Phone: [facility] 10-13-2024 09:06-0400 Body mass index (BMI) [Ratio] 25.54 kg/m2 Camille Harris MD Work Phone: [facility] 10-13-2024 09:06-0400 Body weight 76.2 kg Camille Harris MD Work Phone: [facility] 10-13-2024 09:06-0400 Diastolic blood pressure 60 mm[Hg] Camille Harris MD Work Phone: [facility] 10-13-2024 09:06-0400 Heart rate 75 /min Camille Harris MD Work Phone: [facility] 10-13-2024 09:06-0400 Systolic blood pressure 100 mm[Hg] Camille Harris MD Work Phone: [facility] 10-10-2024 13:05-0400 Body height 172.72 cm Griselda Kuns DO Work Phone: [facility] 10-10-2024 13:05-0400 Body mass index (BMI) [Ratio] 25.4 kg/m2 Griselda Kuns DO Work Phone: [facility] 10-10-2024 13:05-0400 Body weight 75.74 kg Griselda Kuns DO Work Phone: [facility] 10-10-2024 13:05-0400 Diastolic blood pressure 58 mm[Hg] Griselda Kuns DO Work Phone: [facility] 10-10-2024 13:05-0400 Heart rate 76 /min Griselda Kuns DO Work Phone: [facility] 10-10-2024 13:05-0400 Systolic blood pressure 94 mm[Hg] Griselda Kuns DO Work Phone: [facility] 10-06-2024 18:42-0400 Diastolic blood pressure 80 mm[Hg] Griselda Kuns DO Work Phone: [facility] 10-06-2024 18:42-0400 Heart rate 80 /min Griselda Kuns DO Work Phone: [facility] 10-06-2024 18:42-0400 Respiratory rate 16 /min Griselda Kuns DO Work Phone: [facility] 10-06-2024 18:42-0400 SaO2% (BldA) [Mass fraction] 98 % Griselda Kuns DO Work Phone: [facility] 10-06-2024 18:42-0400 Systolic blood pressure 142 mm[Hg] Griselda Kuns DO Work Phone: [facility] 10-06-2024 14:04-0400 Body height 172.72 cm Griselda Kuns DO Work Phone: [facility] 10-06-2024 14:04-0400 Body temperature 98.2 [degF] Griselda Kuns DO Work Phone: [facility] 10-06-2024 14:04-0400 Body weight 77.9 kg Griselda Kuns DO Work Phone: [facility] 09-20-2024 14:00-0400 Heart rate 88 /min Griselda Kuns DO Work Phone: [facility] 09-20-2024 14:00-0400 Respiratory rate 20 /min Griselda Kuns DO Work Phone: [facility] 09-20-2024 14:00-0400 SaO2% (BldA) [Mass fraction] 93 % Griselda Kuns DO Work Phone: [facility] 09-20-2024 13:48-0400 Body temperature 99.4 [degF] Griselda Kuns DO Work Phone: [facility] 09-20-2024 13:48-0400 Diastolic blood pressure 59 mm[Hg] Griselda Kuns DO Work Phone: [facility] 09-20-2024 13:48-0400 Systolic blood pressure 103 mm[Hg] Griselda Kuns DO Work Phone: [facility] 09-20-2024 10:55-0400 Body height 172.72 cm Griselda Kuns DO Work Phone: [facility] 09-20-2024 10:55-0400 Body weight 77.9 kg Griselda Kuns DO Work Phone: [facility] 09-11-2024 10:46-0400 Body mass index (BMI) [Ratio] 27.06 kg/m2 Elvi Cadena MD Work Phone: [facility] 09-11-2024 10:46-0400 Body weight 80.74 kg Elvi Cadena MD Work Phone: [facility] 09-11-2024 10:46-0400 Diastolic blood pressure 68 mm[Hg] Elvi Cadena MD Work Phone: [facility] 09-11-2024 10:46-0400 Heart rate 61 /min Elvi Cadena MD Work Phone: [facility] 09-11-2024 10:46-0400 Systolic blood pressure 135 mm[Hg] Elvi Cadena MD Work Phone: [facility] 09-11-2024 09:22-0400 Body height 172.72 cm Griselda Kuns DO Work Phone: [facility] 09-11-2024 09:22-0400 Body mass index (BMI) [Ratio] 28.1 kg/m2 Griselda Kuns DO Work Phone: [facility] 09-11-2024 09:22-0400 Body temperature 96.6 [degF] Griselda Kuns DO Work Phone: [facility] 09-11-2024 09:22-0400 Body weight 84 kg Griselda Kuns DO Work Phone: [facility] 09-11-2024 09:22-0400 Diastolic blood pressure 86 mm[Hg] Griselda Kuns DO Work Phone: [facility] 09-11-2024 09:22-0400 Heart rate 78 /min Griselda Kuns DO Work Phone: [facility] 09-11-2024 09:22-0400 Respiratory rate 16 /min Griselda Kuns DO Work Phone: [facility] 09-11-2024 09:22-0400 SaO2% (BldA) [Mass fraction] 98 % Griselda Kuns DO Work Phone: [facility] 09-11-2024 09:22-0400 Systolic blood pressure 122 mm[Hg] Griselda Kuns DO Work Phone: [facility] 07-31-2024 13:26-0500 Body mass index (BMI) [Ratio] 27.37 kg/m2 Elvi Cadena MD Work Phone: [facility] 07-31-2024 13:26-0500 Body weight 81.65 kg Elvi Cadena MD Work Phone: [facility] [facility] 07-31-2024 13:26-0500 Diastolic blood pressure 89 mm[Hg] Elvi Cadena MD Work Phone: [facility] 07-31-2024 13:26-0500 Heart rate 81 /min Elvi Cadena MD Work Phone: [facility] 07-31-2024 13:26-0500 Systolic blood pressure 131 mm[Hg] Elvi Cadena MD Work Phone: [facility] 07-03-2024 09:54-0500 Body height 172.72 cm Griselda Kuns DO Work Phone: [facility] 07-03-2024 09:54-0500 Body mass index (BMI) [Ratio] 28.4 kg/m2 Griselda Kuns DO Work Phone: [facility] 07-03-2024 09:54-0500 Body weight 84.82 kg Griselda Kuns DO Work Phone: [facility] 07-03-2024 09:54-0500 Diastolic blood pressure 70 mm[Hg] Griselda Kuns DO Work Phone: [facility] 07-03-2024 09:54-0500 Heart rate 81 /min Griselda Kuns DO Work Phone: [facility] 07-03-2024 09:54-0500 Respiratory rate 18 /min Griselda Kuns DO Work Phone: [facility] 07-03-2024 09:54-0500 SaO2% (BldA) [Mass fraction] 98 % Griselda Kuns DO Work Phone: [facility] 07-03-2024 09:54-0500 Systolic blood pressure 120 mm[Hg] Griselda Kuns DO Work Phone: [facility] 07-02-2024 14:18-0500 Body mass index (BMI) [Ratio] 28.28 kg/m2 Elvi Cadena MD Work Phone: [facility] 07-02-2024 14:18-0500 Body weight 84.37 kg Elvi Cadena MD Work Phone: [facility] 07-02-2024 14:18-0500 Diastolic blood pressure 77 mm[Hg] Elvi Cadena MD Work Phone: [facility] 07-02-2024 14:18-0500 Heart rate 86 /min Elvi Cadena MD Work Phone: [facility] 07-02-2024 14:18-0500 Systolic blood pressure 143 mm[Hg] Elvi Cadena MD Work Phone: [facility] 06-30-2024 08:56-0500 Body height 172.7 cm Camille Harris MD Work Phone: [facility] 06-30-2024 08:56-0500 Body mass index (BMI) [Ratio] 27.37 kg/m2 Camille Harris MD Work Phone: [facility] 06-30-2024 08:56-0500 Body weight 81.65 kg Camille Harris MD Work Phone: [facility] 06-30-2024 08:56-0500 Diastolic blood pressure 70 mm[Hg] Camille Harris MD Work Phone: [facility] 06-30-2024 08:56-0500 Heart rate 75 /min Camille Harris MD Work Phone: [facility] 06-30-2024 08:56-0500 Systolic blood pressure 124 mm[Hg] Camille Harris MD Work Phone: [facility] 05-21-2024 14:04-0500 Body height 172.7 cm Elvi Cadena MD Work Phone: [facility] 05-21-2024 14:04-0500 Body mass index (BMI) [Ratio] 26.46 kg/m2 Elvi Cadena MD Work Phone: [facility] 05-21-2024 14:04-0500 Body weight 78.93 kg Elvi Cadena MD Work Phone: [facility] 05-21-2024 14:04-0500 Diastolic blood pressure 82 mm[Hg] Elvi Cadena MD Work Phone: [facility] 05-21-2024 14:04-0500 Systolic blood pressure 120 mm[Hg] Elvi Cadena MD Work Phone: [facility] 04-28-2024 09:48-0500 Body height 172.72 cm [facility] 04-28-2024 09:48-0500 Body mass index (BMI) [Ratio] 27 kg/m2 [facility] 04-28-2024 09:48-0500 Body weight 80.73 kg [facility] 04-28-2024 09:48-0500 Diastolic blood pressure 76 mm[Hg] [facility] 04-28-2024 09:48-0500 Heart rate 61 /min [facility] 04-28-2024 09:48-0500 Respiratory rate 18 /min [facility] 04-28-2024 09:48-0500 SaO2% (BldA) [Mass fraction] 96 % [facility] 04-28-2024 09:48-0500 Systolic blood pressure 130 mm[Hg] [facility] 04-10-2024 12:11-0400 Body temperature 98.1 [degF] Camille Harris MD Work Phone: [facility] 04-10-2024 12:11-0400 Diastolic blood pressure 58 mm[Hg] Camille Harris MD Work Phone: [facility] 04-10-2024 12:11-0400 Heart rate 82 /min Camille Harris MD Work Phone: [facility] 04-10-2024 12:11-0400 Respiratory rate 17 /min Camille Harris MD Work Phone: [facility] 04-10-2024 12:11-0400 Systolic blood pressure 118 mm[Hg] Camille Harris MD Work Phone: [facility] 04-10-2024 09:20-0400 SaO2% (BldA) [Mass fraction] 93 % Camille Harris MD Work Phone: [facility] 04-09-2024 15:07-0400 Body temperature 37 Camille Harris MD Work Phone: [facility] 04-09-2024 15:07-0400 SaO2% (BldA) [Mass fraction] 100 % Camille Harris MD Work Phone: [facility] 04-09-2024 14:47-0400 Body temperature 37.0 degrees Celsius [facility] Comment on above: Performed By: #### [id number] #### TITUS Mercado ([id number]) [facility] ([facility]) [id number] [place] [address] 04-09-2024 14:47-0400 SaO2% (BldA) [Mass fraction] 100 % [facility] Comment on above: Performed By: #### [id number] #### TITUS Mercado ([id number]) [facility] ([facility]) [address] [place] [address] 04-09-2024 12:11-0400 Body height 172.7 cm Camille Harris MD Work Phone: [facility] 04-09-2024 12:11-0400 Body mass index (BMI) [Ratio] 27.12 kg/m2 Camille Harris MD Work Phone: [facility] 04-09-2024 12:11-0400 Body weight 80.9 kg Camille Harris MD Work Phone: [facility] 04-01-2024 10:47-0400 Body height 172.72 cm [facility] 04-01-2024 10:47-0400 Body mass index (BMI) [Ratio] 27.2 kg/m2 [facility] 04-01-2024 10:47-0400 Body weight 81.19 kg [facility] 04-01-2024 10:47-0400 Diastolic blood pressure 70 mm[Hg] [facility] 04-01-2024 10:47-0400 Heart rate 50 /min [facility] 04-01-2024 10:47-0400 Respiratory rate 16 /min [facility] 04-01-2024 10:47-0400 SaO2% (BldA) [Mass fraction] 99 % [facility] 04-01-2024 10:47-0400 Systolic blood pressure 120 mm[Hg] [facility] 01-31-2024 10:24-0400 Body height 172.72 cm [facility] 01-31-2024 10:24-0400 Body mass index (BMI) [Ratio] 27.3 kg/m2 [facility] 01-31-2024 10:24-0400 Body weight 81.64 kg [facility] 01-31-2024 10:24-0400 Diastolic blood pressure 70 mm[Hg] [facility] 01-31-2024 10:24-0400 Heart rate 75 /min [facility] 01-31-2024 10:24-0400 Respiratory rate 18 /min [facility] 01-31-2024 10:24-0400 SaO2% (BldA) [Mass fraction] 98 % [facility] 01-31-2024 10:24-0400 Systolic blood pressure 122 mm[Hg] [facility] 01-03-2024 13:36-0400 Body height 172.7 cm Camille Harris MD Work Phone: [facility] 01-03-2024 13:36-0400 Body mass index (BMI) [Ratio] 27.43 kg/m2 Camille Harris MD Work Phone: [facility] 01-03-2024 13:36-0400 Body weight 81.83 kg Camille Harris MD Work Phone: [facility] 01-03-2024 13:36-0400 Diastolic blood pressure 80 mm[Hg] Camille Harris MD Work Phone: [facility] 01-03-2024 13:36-0400 Heart rate 80 /min Camille Harris MD Work Phone: [facility] 01-03-2024 13:36-0400 Systolic blood pressure 160 mm[Hg] Camille Harris MD Work Phone: [facility] 12-13-2023 10:00-0400 Body mass index (BMI) [Ratio] 27.1 kg/m2 Ignacia Jack MD Work Phone: [facility] 12-13-2023 10:00-0400 Body temperature 97.5 [degF] Ignacia Jack MD Work Phone: [facility] 12-13-2023 10:00-0400 Body weight 80.83 kg Ignacia Jack MD Work Phone: [facility] 12-13-2023 10:00-0400 Diastolic blood pressure 59 mm[Hg] Ignacia Jack MD Work Phone: [facility] 12-13-2023 10:00-0400 Heart rate 92 /min Ignacia Jack MD Work Phone: [facility] 12-13-2023 10:00-0400 Respiratory rate 17 /min Ignacia Jack MD Work Phone: [facility] 12-13-2023 10:00-0400 SaO2% (BldA) [Mass fraction] 96 % Ignacia Jack MD Work Phone: [facility] 12-13-2023 10:00-0400 Systolic blood pressure 133 mm[Hg] Ignacia Jack MD Work Phone: [facility] 12-12-2023 13:08-0400 Body height 172.7 cm Solomon Milks PA-C Work Phone: [facility] 12-12-2023 13:08-0400 Body mass index (BMI) [Ratio] 26.91 kg/m2 Solomon Milks PA-C Work Phone: [facility] 12-12-2023 13:08-0400 Body weight 80.29 kg Solomon Milks PA-C Work Phone: [facility] 12-12-2023 13:08-0400 Diastolic blood pressure 70 mm[Hg] Solomon Milks PA-C Work Phone: [facility] 12-12-2023 13:08-0400 Heart rate 91 /min Solomon Milks PA-C Work Phone: [facility] 12-12-2023 13:08-0400 Systolic blood pressure 116 mm[Hg] Solomon Milks PA-C Work Phone: [facility] 12-03-2023 10:51-0400 Body height 172.72 cm DO Griselda Kuns Work Phone: [facility] 12-03-2023 10:51-0400 Body mass index (BMI) [Ratio] 26.1 kg/m2 DO Griselda Kuns Work Phone: [facility] 12-03-2023 10:51-0400 Body weight 78.01 kg DO Griselda Kuns Work Phone: [facility] 12-03-2023 10:51-0400 Diastolic blood pressure 82 mm[Hg] DO Griselda Kuns Work Phone: [facility] 12-03-2023 10:51-0400 Heart rate 97 /min DO Griselda Kuns Work Phone: [facility] 12-03-2023 10:51-0400 Respiratory rate 18 /min DO Griselda Kuns Work Phone: [facility] 12-03-2023 10:51-0400 SaO2% (BldA) [Mass fraction] 96 % DO Griselda Kuns Work Phone: [facility] 12-03-2023 10:51-0400 Systolic blood pressure 110 mm[Hg] DO Griselda Kuns Work Phone: [facility] 11-02-2023 09:49-0400 Body height 170.6 cm Memo Cole MD Work Phone: [facility] 11-02-2023 09:49-0400 Body mass index (BMI) [Ratio] 27.38 kg/m2 Memo Cole MD Work Phone: [facility] 11-02-2023 09:49-0400 Body temperature 97.7 [degF] Memo Cole MD Work Phone: [facility] 11-02-2023 09:49-0400 Body weight 79.7 kg Memo Cole MD Work Phone: [facility] 11-02-2023 09:49-0400 Diastolic blood pressure 76 mm[Hg] Memo Cole MD Work Phone: [facility] 11-02-2023 09:49-0400 Heart rate 72 /min Memo Cole MD Work Phone: [facility] 11-02-2023 09:49-0400 Respiratory rate 16 /min Memo Cole MD Work Phone: [facility] 11-02-2023 09:49-0400 SaO2% (BldA) [Mass fraction] 99 % Memo Cole MD Work Phone: [facility] 11-02-2023 09:49-0400 Systolic blood pressure 130 mm[Hg] Memo Cole MD Work Phone: [facility] 10-29-2023 10:32-0400 Body height 172.72 cm DO Griselda Kuns Work Phone: [facility] 10-29-2023 10:32-0400 Body mass index (BMI) [Ratio] 26.6 kg/m2 DO Griselda Kuns Work Phone: [facility] 10-29-2023 10:32-0400 Body weight 79.37 kg DO Griselda Kuns Work Phone: [facility] 10-29-2023 10:32-0400 Diastolic blood pressure 82 mm[Hg] DO Griselda Kuns Work Phone: [facility] 10-29-2023 10:32-0400 Heart rate 71 /min DO Griselda Kuns Work Phone: [facility] 10-29-2023 10:32-0400 Respiratory rate 16 /min DO Griselda Kuns Work Phone: [facility] 10-29-2023 10:32-0400 SaO2% (BldA) [Mass fraction] 98 % DO Griselda Kuns Work Phone: [facility] 10-29-2023 10:32-0400 Systolic blood pressure 128 mm[Hg] DO Griselda Kuns Work Phone: [facility] 10-18-2023 09:02-0400 Diastolic blood pressure 68 mm[Hg] DO Griselda Kuns Work Phone: [facility] 10-18-2023 09:02-0400 Systolic blood pressure 132 mm[Hg] DO Griselda Kuns Work Phone: [facility] 10-18-2023 08:58-0400 Body height 172.72 cm DO Griselda Kuns Work Phone: [facility] 10-18-2023 08:58-0400 Body mass index (BMI) [Ratio] 26.6 kg/m2 DO Griselda Kuns Work Phone: [facility] 10-18-2023 08:58-0400 Body weight 79.37 kg DO Griselda Kuns Work Phone: [facility] 10-18-2023 08:58-0400 Heart rate 57 /min DO Griselda Kuns Work Phone: [facility] 10-18-2023 08:58-0400 Respiratory rate 18 /min DO Griselda Kuns Work Phone: [facility] 10-18-2023 08:58-0400 SaO2% (BldA) [Mass fraction] 98 % DO Griselda Kuns Work Phone: [facility] 10-05-2023 09:37-0400 Body height 172.2 cm Ignacia Jack MD Work Phone: [facility] 10-05-2023 09:37-0400 Body mass index (BMI) [Ratio] 26.25 kg/m2 Ignacia Jack MD Work Phone: [facility] 10-05-2023 09:37-0400 Body temperature 97.3 [degF] Ignacia Jack MD Work Phone: [facility] 10-05-2023 09:37-0400 Body weight 77.84 kg Ignacia Jack MD Work Phone: [facility] 10-05-2023 09:37-0400 Diastolic blood pressure 68 mm[Hg] Ignacia Jack MD Work Phone: [facility] 10-05-2023 09:37-0400 Heart rate 81 /min Ignacia Jack MD Work Phone: [facility] 10-05-2023 09:37-0400 Respiratory rate 16 /min Ignacia Jack MD Work Phone: [facility] 10-05-2023 09:37-0400 SaO2% (BldA) [Mass fraction] 99 % Ignacia Jack MD Work Phone: [facility] 10-05-2023 09:37-0400 Systolic blood pressure 116 mm[Hg] Ignacia Jack MD Work Phone: [facility] 09-05-2023 13:44-0400 Diastolic blood pressure 99 mm[Hg] DO Griselda Kuns Work Phone: [facility] 09-05-2023 13:44-0400 Systolic blood pressure 160 mm[Hg] DO Griselda Kuns Work Phone: [facility] 09-05-2023 13:41-0400 Body height 172.72 cm DO Griselda Kuns Work Phone: [facility] 09-05-2023 13:41-0400 Body mass index (BMI) [Ratio] 27.8 kg/m2 DO Griselda Kuns Work Phone: [facility] 09-05-2023 13:41-0400 Body weight 83 kg DO Griselda Kuns Work Phone: [facility] 09-05-2023 13:41-0400 Heart rate 66 /min DO Griselda Kuns Work Phone: [facility] 09-05-2023 13:41-0400 Respiratory rate 18 /min DO Griselda Kuns Work Phone: [facility] 09-05-2023 13:41-0400 SaO2% (BldA) [Mass fraction] 99 % DO Griselda Kuns Work Phone: [facility] 09-05-2023 11:58-0400 Body height 172.72 cm DO Griselda Kuns Work Phone: [facility] 09-05-2023 11:58-0400 Body mass index (BMI) [Ratio] 27.3 kg/m2 DO Griselda Kuns Work Phone: [facility] 09-05-2023 11:58-0400 Body temperature 97.8 [degF] DO Griselda Kuns Work Phone: [facility] 09-05-2023 11:58-0400 Body weight 81.64 kg DO Griselda Kuns Work Phone: [facility] 09-05-2023 11:58-0400 Diastolic blood pressure 92 mm[Hg] DO Griselda Kuns Work Phone: [facility] 09-05-2023 11:58-0400 Heart rate 71 /min DO Griselda Kuns Work Phone: [facility] 09-05-2023 11:58-0400 SaO2% (BldA) [Mass fraction] 96 % DO Griselda Kuns Work Phone: [facility] 09-05-2023 11:58-0400 Systolic blood pressure 160 mm[Hg] DO Grisleda Kuns Work Phone: [facility] 08-15-2023 15:41-0500 Body height 172.72 cm DO Griselda Kuns Work Phone: [facility] 08-15-2023 15:41-0500 Body mass index (BMI) [Ratio] 28.1 kg/m2 DO Griselda Kuns Work Phone: [facility] 08-15-2023 15:41-0500 Body weight 84.08 kg DO Grsielda Kuns Work Phone: [facility] 08-15-2023 15:41-0500 Diastolic blood pressure 72 mm[Hg] DO Griselda Kuns Work Phone: [facility] 08-15-2023 15:41-0500 Heart rate 62 /min DO Griselda Kuns Work Phone: [facility] 08-15-2023 15:41-0500 Respiratory rate 18 /min DO Griselda Kuns Work Phone: [facility] 08-15-2023 15:41-0500 SaO2% (BldA) [Mass fraction] 99 % DO Griselda Kuns Work Phone: [facility] 08-15-2023 15:41-0500 Systolic blood pressure 128 mm[Hg] DO Griselda Kuns Work Phone: [facility] 08-02-2023 13:11-0500 Body height 172.72 cm DO Griselda Kuns Work Phone: [facility] 08-02-2023 13:11-0500 Body mass index (BMI) [Ratio] 27.9 kg/m2 DO Griselda Kuns Work Phone: [facility] 08-02-2023 13:11-0500 Body weight 83.46 kg DO Griselda Kuns Work Phone: [facility] 08-02-2023 13:11-0500 Diastolic blood pressure 70 mm[Hg] DO Griselda Kuns Work Phone: [facility] 08-02-2023 13:11-0500 Heart rate 68 /min DO Griselda Kuns Work Phone: [facility] 08-02-2023 13:11-0500 Respiratory rate 16 /min DO Griselda Kuns Work Phone: [facility] 08-02-2023 13:11-0500 SaO2% (BldA) [Mass fraction] 97 % DO Griselda Kuns Work Phone: [facility] 08-02-2023 13:11-0500 Systolic blood pressure 130 mm[Hg] DO Griselda Kuns Work Phone: [facility] 07-02-2023 09:30-0500 Body height 172.72 cm Griselda Kuns Other [facility] 07-02-2023 09:30-0500 Body mass index (BMI) [Ratio] 28.28 kg/m2 Griselda Kuns Other [employer] [facility] [employer] Other 07-02-2023 09:30-0500 Body weight 84.37 kg Griselda Kuns Other [employer] Other 07-02-2023 09:30-0500 Body weight 84.36 kg DO Rgiselda Kuns Work Phone: [facility] 07-02-2023 09:30-0500 Diastolic blood pressure 92 mm[Hg] Griselda Kuns Other [facility] 07-02-2023 09:30-0500 Respiratory rate 16 /min Griselda Kuns Other [employer] Other 07-02-2023 09:30-0500 SaO2% (BldA) [Mass fraction] 97 % Griselda Kuns Other [employer] Other 07-02-2023 09:30-0500 Systolic blood pressure 160 mm[Hg] Griselda Kuns Other [facility] 05-31-2023 13:45-0500 Body height 172.72 cm Griselda Kuns Other [facility] 05-31-2023 13:45-0500 Body mass index (BMI) [Ratio] 27.37 kg/m2 Griselda Kuns Other [employer] Other 05-31-2023 13:45-0500 Body weight 81.65 kg Griselda [employer] Other [employer] Other 05-31-2023 13:45-0500 Body weight 81.64 kg DO Griselda [employer] Work Phone: [facility] 05-31-2023 13:45-0500 Diastolic blood pressure 80 mm[Hg] Griselda Kuns Other [facility] 05-31-2023 13:45-0500 Respiratory rate 18 /min Griselda [employer] Other [employer] Other 05-31-2023 13:45-0500 SaO2% (BldA) [Mass fraction] 98 % Griseldakeith Mendezs Other [employer] Other 05-31-2023 13:45-0500 Systolic blood pressure 120 mm[Hg] Griselda [employer] Other [facility] 05-30-2023 11:15-0500 Body height 172.72 cm Ruddy Harvey Other [facility] 05-30-2023 11:15-0500 Body mass index (BMI) [Ratio] 27.52 kg/m2 Ruddy Harvey Other [employer] Other 05-30-2023 11:15-0500 Body temperature 97.8 [degF] Ruddy Harvey Other [employer] Other 05-30-2023 11:15-0500 Body weight 82.1 kg Ruddy Harvey Other [facility] 05-30-2023 11:15-0500 SaO2% (BldA) [Mass fraction] 98 % Ruddy Harvey Other [place] [employer] Other 05-15-2023 13:20-0500 Body height 172.72 cm Lilliam Grecooroge Other [facility] 05-15-2023 13:20-0500 Body mass index (BMI) [Ratio] 27.52 kg/m2 Lilliam Grecooroge Other [employer] [facility] [employer] Other 05-15-2023 13:20-0500 Body weight 82.1 kg Lilliam Grecooroge Other [facility] 05-15-2023 13:20-0500 Diastolic blood pressure 84 mm[Hg] Lilliam Kamla Other [facility] 05-15-2023 13:20-0500 Respiratory rate 18 /min Lilliam Grecooroge Other [employer] Other 05-15-2023 13:20-0500 SaO2% (BldA) [Mass fraction] 98 % Lilliam Grecooroge Other [employer] [facility] [employer] Other 05-15-2023 13:20-0500 Systolic blood pressure 142 mm[Hg] Lilliam Kamla Other [facility] 05-07-2023 13:16-0500 Diastolic blood pressure 78 mm[Hg] DO Griselda Kuns Work Phone: [facility] 05-07-2023 13:16-0500 Heart rate 75 /min DO Griselda Kuns Work Phone: [facility] 05-07-2023 13:16-0500 Respiratory rate 16 /min DO Griselda Kuns Work Phone: [facility] 05-07-2023 13:16-0500 SaO2% (BldA) [Mass fraction] 96 % DO Griselda Kuns Work Phone: [facility] 05-07-2023 13:16-0500 Systolic blood pressure 135 mm[Hg] DO Griselda [employer] Work Phone: [facility] 05-07-2023 10:30-0500 Inhaled oxygen flow rate 3 L/min DO Griselda [employer]s Work Phone: [facility] 05-07-2023 08:29-0500 Body height 172.72 cm DO Griselda [employer] Work Phone: [facility] 05-07-2023 08:29-0500 Body weight 79.37 kg DO [employer] Work Phone: [facility] 05-03-2023 09:15-0500 Body height 172.72 cm Ruddy Harvey Other [employer] Other 05-03-2023 09:15-0500 Body mass index (BMI) [Ratio] 27.06 kg/m2 Ruddy Harvey Other [employer] Other 05-03-2023 09:15-0500 Body temperature 97.8 [degF] Ruddy Harvey Other [employer] Other 05-03-2023 09:15-0500 Body weight 80.74 kg Ruddy Harvey Other [employer] Other 05-03-2023 09:15-0500 Diastolic blood pressure 78 mm[Hg] Ruddy Harvey Other [employer] Other 05-03-2023 09:15-0500 SaO2% (BldA) [Mass fraction] 97 % Ruddy Harvey Other [employer] Other 05-03-2023 09:15-0500 Systolic blood pressure 146 mm[Hg] Ruddy Harvey Other [employer] Other 05-01-2023 10:30-0500 Body height 172.72 cm Griseldakeith Mendezs Other [employer] Other 05-01-2023 10:30-0500 Body mass index (BMI) [Ratio] 27.06 kg/m2 Griselda Andreas Other [employer] Other 05-01-2023 10:30-0500 Body weight 80.74 kg Griselda Andreas Other [employer] Other 05-01-2023 10:30-0500 Diastolic blood pressure 80 mm[Hg] Griselda Andreas Other [employer] Other 05-01-2023 10:30-0500 Respiratory rate 18 /min Griselda Andreas Other [employer] Other 05-01-2023 10:30-0500 SaO2% (BldA) [Mass fraction] 96 % Griseldakeith Mendezs Other [employer] Other 05-01-2023 10:30-0500 Systolic blood pressure 144 mm[Hg] Griselda Andreas Other [employer] Other 04-11-2023 10:40-0400 Body height 172.72 cm Lilliam Cason Other [employer] Other 04-11-2023 10:40-0400 Body mass index (BMI) [Ratio] 26.67 kg/m2 Lilliam Grecooroge Other [employer] Other 04-11-2023 10:40-0400 Body weight 79.56 kg Lilliam Cason Other [facility] [employer] Other 04-11-2023 10:40-0400 Diastolic blood pressure 80 mm[Hg] Lilliam Cason Other [employer] Other 04-11-2023 10:40-0400 SaO2% (BldA) [Mass fraction] 96 % Lilliam Cason Other [employer] [facility] [employer] Other 04-11-2023 10:40-0400 Systolic blood pressure 148 mm[Hg] Lilliam Cason Other [facility] [employer] Other 03-21-2023 02:42-0400 Diastolic blood pressure 98 mm[Hg] DO Griselda Sharelooks Work Phone: [facility] 03-21-2023 02:42-0400 Heart rate 72 /min DO Griselda Sharelooks Work Phone: [facility] 03-21-2023 02:42-0400 Respiratory rate 16 /min DO Griselda Kuns Work Phone: [facility] 03-21-2023 02:42-0400 SaO2% (BldA) [Mass fraction] 97 % DO Griselda Kuns Work Phone: [facility] 03-21-2023 02:42-0400 Systolic blood pressure 170 mm[Hg] DO Griselda Kuns Work Phone: [facility] 03-21-2023 00:12-0400 Body height 172.72 cm DO Griselda Kuns Work Phone: [facility] 03-21-2023 00:12-0400 Body temperature 98 [degF] DO Griselda Kuns Work Phone: [facility] 03-21-2023 00:12-0400 Body weight 79.37 kg DO Griselda Kuns Work Phone: [facility] 03-15-2023 10:30-0400 Body height 172.72 cm Griselda Kuns Other [employer] Other 03-15-2023 10:30-0400 Body mass index (BMI) [Ratio] 26.76 kg/m2 Griselda Kuns Other [employer] Other 03-15-2023 10:30-0400 Body weight 79.83 kg Griselda Kuns Other [employer] Other 03-15-2023 10:30-0400 Diastolic blood pressure 86 mm[Hg] Griselda Kuns Other [employer] Other 03-15-2023 10:30-0400 Respiratory rate 16 /min Griselda Kuns Other [employer] Other 03-15-2023 10:30-0400 SaO2% (BldA) [Mass fraction] 97 % Griselda Kuns Other [employer] Other 03-15-2023 10:30-0400 Systolic blood pressure 174 mm[Hg] Griselda Kuns Other [employer] Other 03-08-2023 10:00-0400 Body height 172.72 cm Griselda Kuns Other [employer] Other 03-08-2023 10:00-0400 Body mass index (BMI) [Ratio] 27.18 kg/m2 Griselda Kuns Other [employer] Other 03-08-2023 10:00-0400 Body weight 81.1 kg Griselda Kuns Other [employer] Other 03-08-2023 10:00-0400 Diastolic blood pressure 82 mm[Hg] Griselda Kuns Other [employer] Other 03-08-2023 10:00-0400 Respiratory rate 16 /min Griselda Kuns Other [employer] Other 03-08-2023 10:00-0400 SaO2% (BldA) [Mass fraction] 96 % Griselda Kuns Other [employer] Other 03-08-2023 10:00-0400 Systolic blood pressure 118 mm[Hg] Griselda Kuns Other [facility] [employer] Other 02-26-2023 14:13-0400 Body height 172.72 cm DO Griselda Kuns Work Phone: [facility] 02-26-2023 14:13-0400 Body temperature 98 [degF] DO Griselda Kuns Work Phone: [facility] 02-26-2023 14:13-0400 Body weight 78.6 kg DO Griselda Kuns Work Phone: [facility] 02-26-2023 14:13-0400 Diastolic blood pressure 77 mm[Hg] DO Griselda Kuns Work Phone: [facility] 02-26-2023 14:13-0400 Heart rate 56 /min DO Griselda Kuns Work Phone: [facility] 02-26-2023 14:13-0400 Respiratory rate 18 /min DO Griselda Kuns Work Phone: [facility] 02-26-2023 14:13-0400 SaO2% (BldA) [Mass fraction] 96 % DO Griselda Kuns Work Phone: [facility] 02-26-2023 14:13-0400 Systolic blood pressure 142 mm[Hg] DO Griselda Kuns Work Phone: [facility] 12-05-2022 10:15-0400 Body height 172.72 cm Griselda Andreas Other [employer] Other 12-05-2022 10:15-0400 Body mass index (BMI) [Ratio] 25.85 kg/m2 Griselda Andreas Other [employer] Other 12-05-2022 10:15-0400 Body weight 77.11 kg Griselda Andreas Other [employer] Other 12-05-2022 10:15-0400 Diastolic blood pressure 80 mm[Hg] Griselda Kuns Other [employer] Other 12-05-2022 10:15-0400 Respiratory rate 16 /min Griselda Andreas Other [employer] Other 12-05-2022 10:15-0400 SaO2% (BldA) [Mass fraction] 96 % Griselda Andreas Other [employer] Other 12-05-2022 10:15-0400 Systolic blood pressure 140 mm[Hg] Griselda Kuns Other [employer] Other 09-13-2022 10:57-0400 Body height 170.6 cm Kelly Perez PA-C Work Phone: [facility] 09-13-2022 10:57-0400 Body temperature 97.39 [degF] Kelly Perez PA-C Work Phone: [facility] 09-13-2022 10:57-0400 Body weight 77.34 kg Kelly Moorek PA-C Work Phone: [facility] 09-13-2022 10:57-0400 Diastolic blood pressure 61 mm[Hg] Kelly Moorek PA-C Work Phone: [facility] 09-13-2022 10:57-0400 Heart rate 70 /min Kelly Moorek PA-C Work Phone: [facility] 09-13-2022 10:57-0400 Respiratory rate 18 /min Kelly Moorek PA-C Work Phone: [facility] 09-13-2022 10:57-0400 SaO2% (BldA) [Mass fraction] 100 % Kelly Moorek PA-C Work Phone: [facility] 09-13-2022 10:57-0400 Systolic blood pressure 133 mm[Hg] Kelly Moorek PA-C Work Phone: [facility] 08-31-2022 11:15-0400 Body height 172.72 cm Griseldakeith Hastings Other [employer] Other 08-31-2022 11:15-0400 Body mass index (BMI) [Ratio] 26.79 kg/m2 Griselda Hastings Other [employer] Other 08-31-2022 11:15-0400 Body weight 79.92 kg Griselda Sharelookgideon Other [employer] Other 08-31-2022 11:15-0400 Diastolic blood pressure 78 mm[Hg] Griselda Sharelookgideon Other [employer] Other 08-31-2022 11:15-0400 Respiratory rate 16 /min Girselda [facility] Other [employer] Other 08-31-2022 11:15-0400 SaO2% (BldA) [Mass fraction] 98 % Griselda Kuns Other [employer] Other 08-31-2022 11:15-0400 Systolic blood pressure 138 mm[Hg] Griselda Kuns Other [employer] Other 08-01-2022 10:30-0500 Body height 172.72 cm Griselda Kuns Other [employer] Other 08-01-2022 10:30-0500 Body mass index (BMI) [Ratio] 27.27 kg/m2 Griselda Kuns Other [employer] Other 08-01-2022 10:30-0500 Body weight 81.38 kg Griselda Kuns Other [employer] Other 08-01-2022 10:30-0500 Diastolic blood pressure 82 mm[Hg] Griselda Kuns Other [employer] Other 08-01-2022 10:30-0500 Respiratory rate 16 /min Griselda Kuns Other [employer] Other 08-01-2022 10:30-0500 SaO2% (BldA) [Mass fraction] 99 % Griselda Kuns Other [employer] Other 08-01-2022 10:30-0500 Systolic blood pressure 146 mm[Hg] Griselda Kuns Other [employer] Other 07-17-2022 09:45-0500 Diastolic blood pressure 98 mm[Hg] DO Griselda Kuns Work Phone: [facility] 07-17-2022 09:45-0500 Heart rate 69 /min DO Griselda Kuns Work Phone: [facility] 07-17-2022 09:45-0500 Respiratory rate 16 /min DO Griselda Kuns Work Phone: [facility] 07-17-2022 09:45-0500 SaO2% (BldA) [Mass fraction] 99 % DO Griselda Kuns Work Phone: [facility] 07-17-2022 09:45-0500 Systolic blood pressure 144 mm[Hg] DO Griselda Kuns Work Phone: [facility] 07-17-2022 07:58-0500 Body height 172.72 cm DO Griselda Kuns Work Phone: [facility] 07-17-2022 07:58-0500 Body weight 79.37 kg DO Griselda Kuns Work Phone: [facility] 06-28-2022 10:20-0500 Body height 172.72 cm Trish Blades Other [employer] Other 06-28-2022 10:20-0500 Body mass index (BMI) [Ratio] 26.67 kg/m2 Trish Blades Other [employer] Other 06-28-2022 10:20-0500 Body weight 79.56 kg Trish Blades Other [employer] Other 06-28-2022 10:20-0500 Diastolic blood pressure 80 mm[Hg] Trish Blades Other [employer] Other 06-28-2022 10:20-0500 Systolic blood pressure 140 mm[Hg] Trish Blades Other [employer] Other 05-26-2022 13:30-0500 Body height 172.72 cm Griselda Kuns Other [employer] Other 05-26-2022 13:30-0500 Body mass index (BMI) [Ratio] 26.7 kg/m2 Griselda Kuns Other [employer] Other 05-26-2022 13:30-0500 Body weight 79.65 kg Griselda Kuns Other [employer] Other 05-26-2022 13:30-0500 Diastolic blood pressure 82 mm[Hg] Griselda Kuns Other [employer] Other 05-26-2022 13:30-0500 Respiratory rate 18 /min Griselda Kuns Other [employer] Other 05-26-2022 13:30-0500 SaO2% (BldA) [Mass fraction] 98 % Griselda Kuns Other [employer] Other 05-26-2022 13:30-0500 Systolic blood pressure 144 mm[Hg] Griselda Kuns Other [employer] Other 04-17-2022 00:30-0400 Diastolic blood pressure 64 mm[Hg] DO Griselda Kuns Work Phone: [facility] 04-17-2022 00:30-0400 Heart rate 78 /min DO Griselda Kuns Work Phone: [facility] 04-17-2022 00:30-0400 Respiratory rate 16 /min DO Griselda Kuns Work Phone: [facility] 04-17-2022 00:30-0400 SaO2% (BldA) [Mass fraction] 97 % DO Griselda Kuns Work Phone: [facility] 04-17-2022 00:30-0400 Systolic blood pressure 135 mm[Hg] DO Griselda Kuns Work Phone: [facility] 04-16-2022 19:45-0400 Body height 172.72 cm DO Griselda Kuns Work Phone: [facility] 04-16-2022 19:45-0400 Body temperature 98.1 [degF] DO Griselda Kuns Work Phone: [facility] 04-16-2022 19:45-0400 Body weight 78 kg DO Griselda Kuns Work Phone: [facility] 04-06-2022 16:31-0400 Body height 172.72 cm DO Griselda Kuns Work Phone: [facility] 04-06-2022 16:31-0400 Body temperature 98.1 [degF] DO Griselda Kuns Work Phone: [facility] 04-06-2022 16:31-0400 Body weight 79.37 kg DO Griselda Kuns Work Phone: [facility] 04-06-2022 16:31-0400 Diastolic blood pressure 108 mm[Hg] DO Griselda Kuns Work Phone: [facility] 04-06-2022 16:31-0400 Heart rate 95 /min DO Griselda Kuns Work Phone: [facility] 04-06-2022 16:31-0400 Respiratory rate 19 /min DO Griselda Kuns Work Phone: [facility] 04-06-2022 16:31-0400 SaO2% (BldA) [Mass fraction] 97 % DO Griselda Kuns Work Phone: [facility] 04-06-2022 16:31-0400 Systolic blood pressure 138 mm[Hg] DO Griselda Kuns Work Phone: [facility] 03-16-2022 13:30-0400 Body height 172.72 cm Griselda Kuns Other [employer] Other 03-16-2022 13:30-0400 Body mass index (BMI) [Ratio] 26.91 kg/m2 Griselda Kuns Other [employer] Other 03-16-2022 13:30-0400 Body weight 80.29 kg Griselda Kuns Other [employer] Other 03-16-2022 13:30-0400 Diastolic blood pressure 80 mm[Hg] Griselda Kuns Other [employer] Other 03-16-2022 13:30-0400 Respiratory rate 16 /min Griselda Andreas Other [employer] Other 03-16-2022 13:30-0400 SaO2% (BldA) [Mass fraction] 97 % Griselda Andreas Other [employer] Other 03-16-2022 13:30-0400 Systolic blood pressure 140 mm[Hg] Griselda Kuns Other [employer] Other 01-30-2022 12:00-0400 Body height 172.72 cm Griselda Kuns Other [employer] Other 01-30-2022 12:00-0400 Body mass index (BMI) [Ratio] 26.3 kg/m2 Griselda Kuns Other [employer] Other 01-30-2022 12:00-0400 Body weight 78.47 kg Griselda Kuns Other [employer] Other 01-30-2022 12:00-0400 Diastolic blood pressure 82 mm[Hg] Griselda Kuns Other [employer] Other 01-30-2022 12:00-0400 Respiratory rate 16 /min Griselda Kuns Other [employer] Other 01-30-2022 12:00-0400 SaO2% (BldA) [Mass fraction] 99 % Griselda Kuns Other [employer] Other 01-30-2022 12:00-0400 Systolic blood pressure 146 mm[Hg] Griselda Kuns Other [employer] Other 12-26-2021 11:00-0400 Body height 172.72 cm Griselda Kuns Other [employer] Other 12-26-2021 11:00-0400 Body mass index (BMI) [Ratio] 26.61 kg/m2 Griselda Kuns Other [employer] Other 12-26-2021 11:00-0400 Body weight 79.38 kg Griselda Kuns Other [employer] Other 12-26-2021 11:00-0400 Diastolic blood pressure 80 mm[Hg] Griselda Kuns Other [employer] Other 12-26-2021 11:00-0400 Respiratory rate 16 /min Griselda Kuns Other [employer] Other 12-26-2021 11:00-0400 SaO2% (BldA) [Mass fraction] 96 % Griselda Kuns Other [employer] Other 12-26-2021 11:00-0400 Systolic blood pressure 166 mm[Hg] Griselda Kuns Other [employer] Other 12-05-2021 10:15-0400 Body height 172.72 cm Griselda Kuns Other [employer] Other 12-05-2021 10:15-0400 Body mass index (BMI) [Ratio] 269.71 kg/m2 Griselda Kuns Other [employer] Other 12-05-2021 10:15-0400 Body weight 804.69 kg Griselda Kuns Other [employer] Other 12-05-2021 10:15-0400 Diastolic blood pressure 72 mm[Hg] Griselda Kuns Other [employer] Other 12-05-2021 10:15-0400 Respiratory rate 18 /min Griselda Kuns Other [employer] Other 12-05-2021 10:15-0400 SaO2% (BldA) [Mass fraction] 99 % Griselda Kuns Other [employer] Other 12-05-2021 10:15-0400 Systolic blood pressure 130 mm[Hg] Griselda Kuns Other [employer] Other 11-08-2021 11:15-0400 Body height 172.72 cm Griselda Kuns Other [employer] Other 11-08-2021 11:15-0400 Body mass index (BMI) [Ratio] 27.06 kg/m2 Griseldakeith Mendezs Other [employer] Other 11-08-2021 11:15-0400 Body weight 80.74 kg Griseldakeith Mendezs Other [employer] Other 11-08-2021 11:15-0400 Diastolic blood pressure 80 mm[Hg] Griseldakeith Mendezs Other [employer] Other 11-08-2021 11:15-0400 Respiratory rate 16 /min Griseldakeith Hastings Other [employer] Other 11-08-2021 11:15-0400 SaO2% (BldA) [Mass fraction] 97 % Griseldakeith Hastings Other [facility] [employer] Other 11-08-2021 11:15-0400 Systolic blood pressure 128 mm[Hg] Griseldakeith Mendezs Other [facility] [employer] Other 11-03-2021 09:38-0400 Body height 170.51 cm Griselda R Kuns Work Phone: [facility] Work Phone: 11-03-2021 09:38-0400 Body mass index (BMI) [Ratio] 27.05 kg/m2 Griselda R Kuns Work Phone: [facility] Work Phone: 11-03-2021 09:38-0400 Body surface area Derived from formula 1.91 m2 Griselda R Kuns Work Phone: [facility] Work Phone: 11-03-2021 09:38-0400 Body temperature 98.2 [degF] Griselda R Darling Work Phone: [facility] Work Phone: 11-03-2021 09:38-0400 Body weight 78.65 kg Griselda Neisha Hastings Work Phone: [facility] Work Phone: 11-03-2021 09:38-0400 Diastolic blood pressure 67 mm[Hg] Griselda Driver Darling Work Phone: [facility] Work Phone: 11-03-2021 09:38-0400 Heart rate 63 /min Griselda Driver Darling Work Phone: [facility] Work Phone: 11-03-2021 09:38-0400 Respiratory rate 16 /min Griselda Neisha Hastings Work Phone: [facility] Work Phone: 11-03-2021 09:38-0400 SaO2% (BldA) [Mass fraction] 99 % Griselda Neisha Hastings Work Phone: [facility] Work Phone: 11-03-2021 09:38-0400 Systolic blood pressure 147 mm[Hg] Griselda Driver Darling Work Phone: [facility] Work Phone: 11-03-2021 09:38-0400 7 1 Griselda Neisha Hastings Work Phone: [facility] Work Phone: Comment on above: [employer] 11-01-2021 13:30-0400 Body height 172.72 cm Griselda Hastings Other [employer] Other 11-01-2021 13:30-0400 Body mass index (BMI) [Ratio] 26.61 kg/m2 Griselda Kuns Other [employer] Other 11-01-2021 13:30-0400 Body weight 79.38 kg Griselda Kuns Other [employer] Other 11-01-2021 13:30-0400 Diastolic blood pressure 78 mm[Hg] Griselda Kuns Other [employer] Other 11-01-2021 13:30-0400 Respiratory rate 18 /min Griselda Kuns Other [employer] Other 11-01-2021 13:30-0400 SaO2% (BldA) [Mass fraction] 99 % Griselda Andreas Other [employer] Other 11-01-2021 13:30-0400 Systolic blood pressure 140 mm[Hg] Griselda Kuns Other [employer] Other 10-24-2021 09:45-0400 Body height 172.72 cm Sheng Schneider Other [employer] Other 10-24-2021 09:45-0400 Body mass index (BMI) [Ratio] 26.76 kg/m2 Sheng Schneider Other [employer] Other 10-24-2021 09:45-0400 Body weight 79.83 kg Sheng Schneider Other [employer] Other 10-13-2021 09:50-0400 Body height 172 cm Memo Cole MD Work Phone: [facility] 10-13-2021 09:50-0400 Body temperature 97.5 [degF] Memo Cole MD Work Phone: [facility] 10-13-2021 09:50-0400 Body weight 81.28 kg Memo Cole MD Work Phone: [facility] 10-13-2021 09:50-0400 Diastolic blood pressure 77 mm[Hg] Memo Cole MD Work Phone: [facility] 10-13-2021 09:50-0400 Heart rate 70 /min Memo Cole MD Work Phone: [facility] 10-13-2021 09:50-0400 Respiratory rate 16 /min Memo Cole MD Work Phone: [facility] 10-13-2021 09:50-0400 SaO2% (BldA) [Mass fraction] 99 % Memo Cole MD Work Phone: [facility] 10-13-2021 09:50-0400 Systolic blood pressure 152 mm[Hg] Memo Cole MD Work Phone: [facility] 09-19-2021 10:45-0400 Body height 172.72 cm Griselda Hastings Other [employer] Other 09-19-2021 10:45-0400 Body mass index (BMI) [Ratio] 26.15 kg/m2 Griselda Hastings Other [employer] Other 09-19-2021 10:45-0400 Body weight 78.02 kg Griselda Hastings Other [employer] Other 09-19-2021 10:45-0400 Diastolic blood pressure 80 mm[Hg] Griselda Hastings Other [employer] Other 09-19-2021 10:45-0400 Respiratory rate 18 /min Griselda Hastings Other [employer] Other 09-19-2021 10:45-0400 SaO2% (BldA) [Mass fraction] 99 % Griselda Kuns Other [employer] Other 09-19-2021 10:45-0400 Systolic blood pressure 140 mm[Hg] Griselda Kuns Other [employer] Other 06-30-2021 13:30-0500 Body height 172.72 cm Griselda Kuns Other [employer] Other 04-14-2021 08:45-0400 Body height 172.72 cm Griselda Kuns Other [employer] Other 04-14-2021 08:45-0400 Body mass index (BMI) [Ratio] 25.85 kg/m2 Griselda Kuns Other [employer] Other 04-14-2021 08:45-0400 Body weight 77.11 kg Griselda Kuns Other [employer] Other 04-14-2021 08:45-0400 Diastolic blood pressure 80 mm[Hg] Griselda Kuns Other [employer] Other 04-14-2021 08:45-0400 Respiratory rate 16 /min Griselda Kuns Other [employer] Other 04-14-2021 08:45-0400 SaO2% (BldA) [Mass fraction] 99 % Griselda Kuns Other [employer] Other 04-14-2021 08:45-0400 Systolic blood pressure 124 mm[Hg] Griselda Kuns Other [facility] [employer] Other Encounters Encounter Date Encounter Type Care Provider Facility Start: 02-04-2025 End: 02-04-2025 ambulatory ELVI CADENA Not Available Start: 02-04-2025 End: 02-04-2025 Bamboo flowspeggy Cadena MD Work Phone: [facility] Start: 02-04-2025 End: 02-04-2025 Bamboo flowspeggy Cadena MD Work Phone: [facility] Start: 01-12-2025 End: 01-12-2025 ambulatory Griselda Hastings DO Work Phone: [facility] Work Phone: Start: 01-12-2025 End: 01-12-2025 Patient encounter procedure Solomon Mullins [facility] Work Phone: Start: 01-08-2025 End: 01-08-2025 Bamboo [...] Bamboo flowsheet Elvi Cadena MD Work Phone: [facility] Start: 12-24-2024 End: 12-24-2024 Bamboo flowsheet Elvi Cadena MD Work Phone: [facility] Start: 12-24-2024 End: 12-24-2024 Clinical Support Elvi Cadena MD Work Phone: [facility] Comment on above: Nerve root and plexu s disorder, unspecified (Primary Dx); Acute pain of left shoulder Start: 2024 End: 2024 Patient encounter procedure Griselda Kuns DO Work Phone: [facility] Start: 2024 End: 2024 ambulatory Griselda Kuns DO Work Phone: [facility] Work Phone: Start: 11-19-2024 End: 11-19-2024 ambulatory Griselda Kuns DO Work Phone: [facility] Work Phone: Start: 11-19-2024 End: 11-19-2024 Patient encounter procedure Griselda Kuns DO Work Phone: [facility] Work Phone: Start: 11-17-2024 End: 11-17-2024 ambulatory Griselda Kuns DO Work Phone: [facility] Work Phone: Start: 11-17-2024 End: 11-17-2024 Patient encounter procedure Griselda Kuns DO Work Phone: [facility] Work Phone: Start: 11-12-2024 End: 11-12-2024 Bamboo flowsheet Elvi Cadena MD Work Phone: [facility] Start: 11-12-2024 End: 11-12-2024 Bamboo flowsheet Elvi Cadena MD Work Phone: [facility] Start: 11-12-2024 End: 11-12-2024 Clinical Support Elvi Cadena MD Work Phone: [facility] Comment on above: Nerve root and plexu s disorder, unspecified (Primary Dx); Acute pain of left shoulder Start: 11-07-2024 End: 11-07-2024 ambulatory MEMO COLE Facility:[facility] Start: 11-05-2024 Non-patient / Non-visit Griselda Kuns DO [facility] Phone[facility] Work Phone: Start: 11-05-2024 End: 11-05-2024 Admission to same day surgery center Griselda Kuns DO Work Phone: [facility] Work Phone: Start: 11-05-2024 End: 11-05-2024 ambulatory Griselda Kuns Facility:[facility] Start: 11-03-2024 End: 11-03-2024 Telephone encounter Memo Cole MD Work Phone: Hematology/Oncology Comment on above: Orders Start: 11-03-2024 Non-patient / Non-visit Griselda Kuns DO Work Phone: [facility] Work Phone: Start: 11-03-2024 ambulatory MEMO CURTIS Facilit y:[facility] Start: 11-03-2024 End: 11-03-2024 Subsequent hospital visit by physician Arrival Time Radiology Work Phone: Radiology Pet CT Comment on above: 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] Start: 10-27-2024 End: 10-27-2024 ambulatory Griselda Kuns DO Work Phone: [facility] Work Phone: Start: 10-27-2024 End: 10-27-2024 Patient encounter procedure Griselda Kuns DO Work Phone: [facility] Work Phone: Start: 10-21-2024 End: 10-21-2024 Subsequent hospital visit by physician Rad External Film EF RAD EXTERNAL [employer]M [employer] Comment on above: Arrived Start: 10-21-2024 End: 10-21-2024 ambulatory [facility] Start: 10-13-2024 End: 10-13-2024 Office outpatient visit 40 minutes Camille Harris MD Work Phone: [facility] Comment on above: Status post cervical spinal fusion (Primary Dx) Start: 10-13-2024 End: 10-13-2024 ambulatory [facility] Start: 10-10-2024 End: 10-10-2024 ambulatory Griselda Kuns DO Work Phone: [facility] Work Phone: Start: 10-10-2024 End: 10-10-2024 Patient encounter procedure Griselda Kuns DO [facility] Phone[facility] Work Phone: Start: 10-10-2024 End: 10-10-2024 Patient encounter procedure Griselda Kuns DO Work Phone: [facility] Work Phone: Start: 10-10-2024 End: 10-10-2024 ambulatory Griselda Kuns DO Work Phone: [facility] Work Phone: Start: 10-07-2024 End: 10-07-2024 Patient encounter procedure Griselda Kuns DO Work Phone: [facility] Work Phone: Start: 10-07-2024 End: 10-07-2024 ambulatory Griselda Kuns DO Work Phone: [facility] Work Phone: Start: 10-06-2024 End: 10-06-2024 Emergency department patient visit Griselda Hastings DO Work Phone: [facility]Emergency [facility] Work Phone: Start: 09-22-2024 End: 09-22-2024 ambulatory Sarina Ramsey MD Facility:[facility] Start: 09-20-2024 End: 09-20-2024 Emergency department patient visit Griselda Hastings DO Work Phone: [facility]-Emergency Room Work Phone: Start: 09-15-2024 End: 09-15-2024 ambulatory Sarina Ramsey MD Facility:[facility] Start: 09-11-2024 End: 09-11-2024 Bamboo flowsheet Elvi Cadena MD Work Phone: [facility] Start: 09-11-2024 End: 09-11-2024 Bamboo flowsheet Elvi Cadena MD Work Phone: [facility] Start: 09-11-2024 End: 09-11-2024 Clinical Support Elvi Cadena MD Work Phone: [facility] Comment on above: Nerve root and plexu s disorder, unspecified (Primary Dx) Start: 09-11-2024 End: 09-11-2024 Patient encounter procedure Griselda Mendezs DO Work Phone: [facility] Work Phone: Start: 09-11-2024 End: 09-11-2024 ambulatory Griseldakeith Mendezs DO Work Phone: [facility] Work Phone: Start: 07-31-2024 End: 07-31-2024 Bamboo flowsheet Elvi Cadena MD Work Phone: [facility] Start: 07-31-2024 End: 07-31-2024 Bamboo flowsheet Elvi Cadena MD Work Phone: [facility] Start: 07-31-2024 End: 07-31-2024 Clinical Support Elvi Cadena MD Work Phone: [facility] Comment on above: Nerve root and plexu s disorder, unspecified (Primary Dx) Start: 07-28-2024 End: 07-28-2024 ambulatory Sarina Ramsey MD Facility:[facility] Start: 07-07-2024 End: 07-07-2024 ambulatory Sarina Ramsey MD Facility:[facility] Start: 07-03-2024 End: 07-03-2024 ambulatory Griselda Hastings DO Work Phone: [facility] Work Phone: Start: 07-03-2024 End: 07-03-2024 Patient encounter procedure Griselda Darling DO Work Phone: [facility] [place] Work Phone: Start: 07-02-2024 End: 07-02-2024 Bamboo flowsheet Elvi Cadena MD Work Phone: [facility] Start: 07-02-2024 End: 07-02-2024 Bamboo flowsheet Elvi Cadena MD Work Phone: [facility] Start: 07-02-2024 End: 07-02-2024 Clinical Support Elvi Cadena MD Work Phone: [facility] Comment on above: Nerve root and plexu s disorder, unspecified (Primary Dx) Start: 06-30-2024 End: 06-30-2024 Postop follow up visit related to original px Camille Harris MD Work Phone: [facility] Comment on above: Status post cervical spinal fusion (Primary Dx) Start: 06-30-2024 End: 06-30-2024 ambulatory [facility] Ambulatory Start: 06-24-2024 End: 06-24-2024 Patient encounter procedure Grisedla Hastings DO Work Phone: [facility]XRay [facility] Work Phone: Start: 06-24-2024 End: 06-24-2024 ambulatory Griselda Hastings DO Work Phone: [facility] Work Phone: Start: 05-21-2024 End: 05-21-2024 Bamboo flowsheet Elvi Cadena MD Work Phone: [facility] Start: 05-21-2024 End: 05-21-2024 Bamboo flowsheet Elvi Cadena MD Work Phone: [facility] Start: 05-21-2024 End: 05-21-2024 Clinical Support Elvi Cadena MD Work Phone: [facility] Comment on above: Other nerve root and plexus disorders (Primary Dx); Cervical paraspinal muscle spasm; Cervical stenosis of spinal canal Start: 04-30-2024 End: 04-30-2024 Postop follow up visit related to original px Solomon Narayanan PA-C Work Phone: [facility] Comment on above: Cervical radiculopat hy (Primary Dx); Status post cervical spinal fusion; Acute postoperative pain; Muscle spasms of neck Start: 04-30-2024 End: 04-30-2024 ambulatory BENTON Nae [facility] Ambulatory Start: 04-28-2024 End: 04-28-2024 ambulatory [facility] Work Phone: Start: 04-28-2024 End: 04-28-2024 Patient encounter procedure [facility] Work Phone: Start: 04-09-2024 End: 04-10-2024 ambulatory [facility] Start: 04-09-2024 End: 04-10-2024 Evaluation and management of inpatient Camille Harris MD Work Phone: [facility] Kassandra Gallina 4 Comment on above: Cervical radiculopat hy (Primary Dx); Senile osteoporosis Start: 04-01-2024 End: 04-01-2024 ambulatory [facility] Work Phone: Start: 04-01-2024 End: 04-01-2024 Patient encounter procedure [facility] [place] Work Phone: Start: 03-31-2024 End: 03-31-2024 Subsequent hospital visit by physician Rad External Film EF RAD EXTERNAL [employer]M [employer]UAL Comment on above: Arrived Start: 03-31-2024 End: 03-31-2024 ambulatory [facility] Start: 03-26-2024 End: 03-26-2024 ambulatory [facility] Start: 03-19-2024 End: 03-19-[address] [facility] Start: 02-13-2024 End: 02-13-2024 Subsequent hospital visit by physician [facility] 1 [facility] Comment on above: Cervical radiculopat hy Start: 02-13-2024 End: 02-13-2024 ambulatory [facility] Start: 02-13-2024 End: 02-13-2024 ambulatory [facility] Start: 02-11-2024 End: 02-12-2024 ambulatory [facility] Start: 02-11-2024 End: 02-11-2024 ambulatory [facility] Start: 02-11-2024 End: 02-11-2024 Subsequent hospital visit by physician Daniel Reynaga1800 Cr Nonv1 Holter/Ecg Resource [facility] Comment on above: Cervical radiculopat hy; Senile osteoporosis Start: 02-04-2024 End: 02-04-[address] [facility] Start: 01-31-2024 End: 01-31-2024 ambulatory [facility] Work Phone: Start: 01-31-2024 End: 01-31-2024 Patient encounter procedure [facility] [place] Work Phone: Start: 01-03-2024 End: 01-03-2024 Office outpatient new 60 minutes Camille Harris MD Work Phone: [facility] Comment on above: Cervical radiculopat hy (Primary Dx); Senile osteoporosis Start: 12-17-2023 End: 12-17-2023 ambulatory Sarina Ramsey MD Facility:[facility] Start: 12-13-2023 End: 12-13-2023 Office outpatient visit 40 minutes Ignacia Jack MD Work Phone: [facility] 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) Start: 12-13-2023 End: 12-13-2023 ambulatory IGNACIA JACK [facility] Start: 12-13-2023 End: 12-13-2023 Subsequent hospital visit by physician [facility] 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) Start: 12-13-2023 End: 12-13-2023 ambulatory SHIMON HEATON [facility] Start: 12-12-2023 End: 12-12-2023 Office outpatient new 45 minutes Solomon Narayanan PA-C Work Phone: [facility] Comment on above: Cervical radiculopat hy (Primary Dx); Occipital neuralgia of left side; Balance problem Start: 12-03-2023 End: 12-03-2023 ambulatory DO Griselda Kuns Work Phone: [facility] Work Phone: Start: 12-03-2023 End: 12-03-2023 Patient encounter procedure DO Griselda Kuns Work Phone: [facility] [place] Work Phone: Start: 11-02-2023 End: 11-02-2023 Office outpatient visit 25 minutes Memo Cole MD Work Phone: Hematology/Oncology Comment on above: 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) Start: 10-29-2023 End: 10-29-2023 ambulatory DO Griselda Kuns Work Phone: [facility] Work Phone: Start: 10-29-2023 End: 10-29-2023 Patient encounter procedure DO Griselda Kuns Work Phone: [facility] [place] Work Phone: Start: 10-26-2023 Non-patient / Non-visit DO Katy tt Kuns Work Phone: 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] Start: 10-22-2023 End: 10-22-2023 ambulatory Sarina Ramsey MD Facility:[facility] Start: 10-18-2023 End: 10-18-2023 Patient encounter procedure DO Griselda Kuns Work Phone: [facility] Cardiology Work Phone: Start: 10-09-2023 End: 10-09-2023 ambulatory DO Griselda Kuns Work Phone: [facility] Work Phone: Start: 10-09-2023 End: 10-09-2023 Patient encounter procedure DO Griselda Kuns Work Phone: [facility]XRay [place] Work Phone: Start: 10-05-2023 End: 10-05-2023 Office outpatient new 60 minutes Ignacia Jack MD Work Phone: [facility] Comment on above: Brainstem lesion (Pr imary Dx); Pontine glioma (Multi) Start: 10-01-2023 End: 10-01-2023 ambulatory Sarina Ramsey MD Facility:[facility] Start: 09-19-2023 End: 09-19-2023 Subsequent hospital visit by physician Rad External Film EF RAD EXTERNAL [employer] Comment on above: Arrived Start: 09-05-2023 End: 09-05-2023 ambulatory DO Griselda Kuns Work Phone: [facility] Work Phone: Start: 09-05-2023 End: 09-05-2023 Patient encounter procedure DO Griselda Kuns Work Phone: [facility] Cardiology Work Phone: Start: 09-05-2023 End: 09-05-2023 ambulatory DO Griselda Kuns Work Phone: [facility] Work Phone: Start: 09-05-2023 End: 09-05-2023 Patient encounter procedure DO Griselda Kuns Work Phone: [facility] Vascular Surgery Work Phone: Start: 08-15-2023 End: 08-15-2023 Patient encounter procedure DO Griselda Kuns Work Phone: [facility] [place] Work Phone: Start: 08-02-2023 End: 08-02-2023 ambulatory DO Griselda Kuns Work Phone: [facility] Work Phone: Start: 08-02-2023 End: 08-02-2023 Patient encounter procedure DO Griselda Kuns Work Phone: [facility] [place] Work Phone: Start: 07-26-2023 Chart abstracting Nikole Mota FAMILY SUPPORT SPECIALIST Work Phone: [facility] Start: 07-19-2023 Bamboo flowsheet Nikole Mota FAMILY SUPPORT SPECIALIST Work Phone: [facility] Start: 07-19-2023 Bamboo flowsheet Nikole Mota FAMILY SUPPORT SPECIALIST Work Phone: [facility] Start: 07-18-2023 End: 07-21-2023 ambulatory ADDIS KHAN [facility] Start: 07-02-2023 End: 07-02-2023 ambulatory Griselda Kuns Other [employer] Other Start: 07-02-2023 Office outpatient vi sit 25 minutes Griselda Kuns [facility] [place] Start: 07-02-2023 End: 07-02-2023 Patient encounter procedure DO Griselda Kuns Work Phone: [facility] [place] Work Phone: Start: 05-31-2023 End: 05-31-2023 ambulatory Griselda Kuns Other [employer] Other Start: 05-31-2023 Office outpatient vi sit 25 minutes Griselda Kuns [facility] [place] Start: 05-30-2023 Office outpatient vi sit 15 minutes Ruddy Harvey [facility] Vascular Surgery Start: 05-30-2023 End: 05-30-2023 ambulatory DO Griselda Kuns Work Phone: [employer] Other Start: 05-30-2023 End: 05-31-2023 Patient encounter procedure DO Griselda Kuns Work Phone: [facility]-Ultrasound [facility] V[facility] Start: 05-30-2023 End: 05-30-2023 Patient encounter procedure DO Griselda Kuns Work Phone: [facility] Vascular Surgery Work Phone: Start: 05-15-2023 End: 05-15-2023 ambulatory Lilliam Kamla Other [employer] Other Start: 05-15-2023 Office outpatient vi sit 25 minutes Lilliam Cason [facility] Start: 05-15-2023 Telephone encounter Lilliam Cason [employer] Start: 05-15-2023 End: 05-15-2023 Patient encounter procedure DO Griselda Kuns Work Phone: [facility] Work Phone: Start: 05-07-2023 End: 05-07-2023 Admission to same day surgery center DO Griselda Kuns Work Phone: [facility]-Interventional Radiology Work Phone: Start: 05-07-2023 End: 05-07-2023 ambulatory DO Griselda Kuns Work Phone: [facility] Work Phone: Start: 05-04-2023 End: 05-04-2023 ambulatory DO Griselda Kuns Work Phone: [facility] Work Phone: Start: 05-04-2023 End: 05-04-2023 Patient encounter procedure DO Griselda Kuns Work Phone: [facility]-CT Scan [place] Work Phone: Start: 05-03-2023 End: 05-03-2023 ambulatory Ruddy Harvey Other [employer] Other Start: 05-03-2023 Office outpatient ne w 45 minutes Ruddy Harvey [facility] Start: 05-03-2023 Telephone encounter Ruddy craft [employer] Start: 05-01-2023 End: 05-01-2023 ambulatory Griselda Kuns Other [employer] Other Start: 05-01-2023 Office outpatient vi sit 25 minutes Griselda Kuns [facility] [place] Start: 04-25-2023 End: 04-25-2023 ambulatory DO Griselda Kuns Work Phone: [facility] Work Phone: Start: 04-25-2023 End: 04-25-2023 Patient encounter procedure DO Griselda Kuns Work Phone: [facility]-Ultrasound [place] Work Phone: Start: 04-12-2023 End: 04-12-2023 ambulatory Lilliam Kamla Other [employer] Other Start: 04-12-2023 Telephone encounter Lilliam Kamla [facility] Start: 04-11-2023 End: 04-11-2023 ambulatory Lilliam Kamla Other [employer] Other Start: 04-11-2023 Office outpatient ne w 45 minutes Lilliam Kamla [facility] Start: 04-10-2023 End: 04-10-2023 ambulatory Griselda Kuns Other [employer] Other Start: 04-10-2023 Telephone encounter Griselda Kuns [facility] [place] Start: 03-30-2023 End: 03-30-2023 ambulatory DO Griselda Kuns Work Phone: [facility] Work Phone: Start: 03-30-2023 End: 03-30-2023 Patient encounter procedure DO Griselda Kuns Work Phone: [facility]-Lab [place] Work Phone: Start: 03-21-2023 End: 03-21-2023 Emergency department patient visit DO Griselda Kuns Work Phone: [facility]-Emergency Room Work Phone: Start: 03-15-2023 End: 03-15-2023 ambulatory Griselda Kuns Other [employer] Other Start: 03-15-2023 Office outpatient vi sit [address] [facility] Start: 03-08-2023 End: 03-08-2023 ambulatory Griselda Kuns Other [employer] Other Start: 03-08-2023 Office outpatient vi sit [address] [facility] Start: 02-26-2023 End: 02-26-2023 Emergency department patient visit DO Griselda Kuns Work Phone: [facility]-Emergency Room Work Phone: Start: 12-28-[address] BRET Lawrence ity:UNKNOWN Start: 12-05-2022 End: 12-05-2022 ambulatory Griselda Kuns Other [employer] Other Start: 12-05-2022 Office outpatient vi sit [address] [facility] Start: 11-15-2022 End: 11-15-2022 ambulatory DO Griselda Kuns Work Phone: [facility] Work Phone: Start: 11-15-2022 End: 11-15-2022 Patient encounter procedure DO Griselda Kuns Work Phone: [facility]-MRI [address] Work Phone: Start: 10-27-2022 End: 10-27-2022 Subsequent hospital visit by physician Arrival Time Radiology Work Phone: Radiology [facility] Comment on above: Malignant neoplasm o f head, 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] Start: 10-24-2022 End: 10-24-2022 ambulatory DO Griselda Kuns Work Phone: [facility] Work Phone: Start: 10-24-2022 End: 10-24-2022 Patient encounter procedure DO Griselda Kuns Work Phone: [facility]-Lab [place] Work Phone: Start: 09-28-2022 End: 09-28-2022 ambulatory DEMOND R MELLER Facility:[facility] Start: 09-22-2022 End: 09-22-2022 Subsequent hospital visit by physician Jonelle Hernandez (I-Stat/3t) Work Phone: Radiology Comment on above: 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 Start: 08-01-2022 End: 08-01-2022 ambulatory Griselda Kuns Other [employer] Other Start: 08-01-2022 Office outpatient vi sit [address] [facility] Start: 07-17-2022 End: 07-17-2022 ambulatory DO Griselda Kuns Work Phone: [facility] Work Phone: Start: 07-17-2022 End: 07-17-2022 Patient encounter procedure DO Griselda Kuns Work Phone: [facility]-XRay [place] Work Phone: Start: 07-14-2022 End: 07-14-2022 Patient encounter procedure DO Griselda Kuns Work Phone: [facility]-CT Scan [place] Work Phone: Start: 06-28-2022 End: 06-28-2022 ambulatory Trish Blades Other [employer] Other Start: 06-28-2022 Office outpatient ne w 45 minutes Trish Blades [facility] [place] Neurosurgery Start: 05-26-2022 End: 05-26-2022 ambulatory Griselda Kuns Other [employer] Other Start: 05-26-2022 Office outpatient vi sit [address] [facility] Start: 05-17-2022 End: 05-17-2022 ambulatory DO Griselda Kuns Work Phone: [facility] Work Phone: Start: 05-17-2022 End: 05-17-2022 Discharged Recurring DO Griselda Kuns Work Phone: [facility]-Physical Therapy [address] Start: 04-27-2022 Registered Recurring DO Griselda Kuns Work Phone: [facility]-Physical Therapy [address] Start: 04-16-2022 End: 04-17-2022 Emergency department patient visit DO Griselda Kuns Work Phone: [facility]-Emergency Room Start: 04-10-2022 End: 04-10-2022 ambulatory Griselda Kuns Other [employer] Other Start: 04-10-2022 Telephone encounter [address]iselda Kuns [facility] Start: 04-06-2022 End: 04-06-2022 Emergency department patient visit DO Griselda Kuns Work Phone: [facility]-Emergency Room Start: 03-27-2022 Telephone encounter Asya Reynolds RN Hematology/Oncology Comment on above: Appointment Start: 03-22-2022 End: 03-22-2022 ambulatory Griselda Kuns Other [employer] Other Start: 03-22-2022 [address] encounter [address] Kuns [facility] Start: 03-16-2022 End: 03-16-2022 ambulatory Griselda Kuns Other [employer] Other Start: 03-16-2022 Office outpatient vi sit [address] [facility] Start: 03-16-2022 Telephone encounter Self [facility] Comment on above: Triage (Internal Ref erral--old) Start: 03-09-2022 End: 03-09-2022 ambulatory Griselda Kuns Other [employer] Other Start: 03-09-2022 Telephone encounter [address]iselda Kuns [facility] Start: 03-07-2022 End: 03-07-2022 ambulatory Griselda Kuns Other [employer] Other Start: 03-07-2022 [address] encounter [address]iselda Kuns [facility] Start: 03-03-2022 Telephone encounter Griselda Kuns [facility] Start: 03-03-2022 End: 03-03-2022 ambulatory DO Griselda Kuns Work Phone: [employer] Other Start: 03-03-2022 End: 03-03-2022 Discharged Recurring DO Griselda Kuns Work Phone: [facility]-Physical Therapy [facility] Start: 03-03-2022 Registered Recurring DO Griselda Kuns Work Phone: [facility]-Physical Therapy [address] Start: 02-07-2022 End: 02-07-2022 ambulatory Griselda Kuns Other [employer] Other Start: 02-07-2022 Telephone encounter Griselda Kuns [facility] [place] Start: 01-30-2022 End: 01-30-2022 ambulatory Griselda Kuns Other [employer] Other Start: 01-30-2022 Office outpatient vi sit 25 minutes Griselda Kuns [facility] [place] Start: 01-12-2022 End: 01-12-2022 ambulatory Griselda Kuns Other [employer] Other Start: 01-12-2022 Telephone encounter Griselda Kuns [facility] Family [facility] [place] Start: 12-26-2021 End: 12-26-2021 ambulatory Griselda Kuns Other [employer] Other Start: 12-26-2021 Office outpatient vi sit 25 minutes Griselda Kuns [facility] Family [facility] [place] Start: 12-23-2021 End: 12-23-2021 ambulatory Griselda Kuns Other [employer] Other Start: 12-23-2021 Telephone encounter Griselda Kuns [facility] Medicine [place] Start: 12-05-2021 End: 12-05-2021 ambulatory Griselda Kuns Other [employer] Other Start: 12-05-2021 Office outpatient vi sit 25 minutes Griselda Kuns [facility] [place] Start: 12-05-2021 Telephone encounter Griselda Kuns [facility] [place] Start: 11-22-2021 End: 11-22-2021 ambulatory Griselda Kuns Other [employer] Other Start: 11-22-2021 Telephone encounter Griselda Kuns [facility] [place] Start: 11-21-2021 Office outpatient vi sit 15 minutes Griselda R Kuns Work Phone: [facility] Work Phone: Start: 11-09-2021 End: 11-09-2021 ambulatory Griselda Kuns Other [employer] Other Start: 11-09-2021 Telephone encounter [address]iselda Kuns [facility] Start: 11-08-2021 End: 11-08-2021 ambulatory Griselda Kuns Other [employer] Other Start: 11-08-2021 Office outpatient vi sit [address] [facility] Start: 11-03-2021 Office consultation new/estab patient 60 min Griselda R Kuns Work Phone: [facility] Work Phone: Start: 11-01-2021 End: 11-01-2021 ambulatory Griselda Kuns Other [employer] Other Start: 11-01-2021 Office outpatient vi sit [address] [facility] Start: 10-31-2021 End: 10-31-2021 ambulatory Sheng Schneider Other [place] [employer] Other Start: 10-31-2021 Telephone encounter Sheng Clark [facility] Neurosurgery Start: 10-27-2021 End: 10-27-2021 ambulatory Memo Cole MD Work Phone: Hematology/Oncology Comment on above: 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); Lung nodules; Malignant neoplasm of head, face and neck (HCC) Start: 10-27-2021 End: 10-27-2021 Telemedicine consultation with patient Memo Cole MD Work Phone: [place] Start: 10-24-2021 End: 10-24-2021 ambulatory Sheng Schneider Other [employer] Other Start: 10-24-2021 Office outpatient ne w 30 minutes Sheng Schneider [facility] [place] Neurosurgery Start: 10-13-2021 Telephone encounter Memo kapoor MD Work Phone: [facility] Comment on above: Referral Information (Neurosurgery) Start: 10-13-2021 End: 10-13-2021 ambulatory Memo Cole MD Work Phone: Hematology/Oncology Comment on above: Glioma of brain (HCC ) (Primary Dx); Lung nodules; 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) Start: 10-13-2021 End: 10-13-2021 Patient encounter procedure Memo Cole MD Work Phone: [place] Start: 10-06-2021 End: 10-06-2021 ambulatory Griselda Mendezs Other [employer] Other Start: 10-06-2021 Telephone encounter Asya Kumar RN Hematology/Oncology Comment on above: Results Start: 10-06-2021 End: 10-06-2021 Subsequent hospital visit by physician Arrival Time Radiology Work Phone: Radiology [facility] Comment on above: Malignant neoplasm o f head, 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] Start: 09-29-2021 End: 09-29-2021 ambulatory Griselda Andreas Other [employer] Other Start: 09-29-2021 Telephone encounter Griselda Kuns [facility] Start: 09-27-2021 End: 09-27-2021 ambulatory Griselda Kuns Other [employer] Other Start: 09-27-2021 Telephone encounter Griselda Kuns [facility] Start: 09-19-2021 End: 09-19-2021 ambulatory Griselda Kuns Other [employer] Other Start: 09-19-2021 Office outpatient vi sit 25 minutes Griselda Kuns [facility] [place] Start: 09-12-2021 End: 09-12-2021 ambulatory Griselda Kuns Other [employer] Other Start: 09-12-2021 Telephone encounter Griselda Kuns [facility] [place] Start: 09-08-2021 End: 09-08-2021 ambulatory Griselda Kuns Other [employer] Other Start: 09-08-2021 Telephone encounter Griselda Kuns [facility] [place] Start: 06-30-2021 End: 06-30-2021 ambulatory Griselda Kuns Other [employer] Other Start: 06-30-2021 Office outpatient vi sit 15 minutes Griselda Kuns [facility] [place] Start: 06-30-2021 Telephone encounter Griselda Kuns [facility] [place] Start: 06-29-2021 End: 06-29-2021 ambulatory Griselda Kuns Other [employer] Other Start: 06-29-2021 Nursing evaluation o f patient and report Griselda Kuns [facility] [place] Start: 04-19-2021 End: 04-19-2021 ambulatory Griselda Kuns Other [employer] Other Start: 04-19-2021 Nursing evaluation o f patient and report Griselda Kuns [facility] [place] Start: 04-19-2021 Telephone encounter Griselda Kuns [facility] [place] Start: 04-14-2021 Office outpatient vi sit 15 minutes Griselda Kuns [facility] [place] Start: 10-01-2020 End: 10-01-2020 Patient encounter procedure Griselda Kuns Work Phone: -Electrodiagnostics Start: 09-20-2020 End: 09-20-2020 Patient encounter procedure Griseldakeith Hastings -Lab [facility] Start: 09-13-2020 End: 09-13-2020 Patient encounter procedure Griselda Andreas -XRay [facility] Procedures Date Procedure Procedure Detail Performing [...] 05-04-2023 CT angiography of head DO Griselda Sharelookgideon Work Phone: Start: 05-04-2023 CT angiography of neck vessels DO Griselda Sharelookgideon Work Phone: Start: 04-25-2023 Pulse volume recorder pneumoplethysmography DO Griselda Sharelookgideon Work Phone: Start: 02-26-2023 SARS Antigen (LFIA) DO Griseldakeith Hastings Work Phone: Start: 11-15-2022 MR lumbar spine wo con DO Griselda Sharelookgideon Work Phone: Start: 11-15-2022 XR pre/post mri [...] RSV Vaccine (1 - 1-dose 75+ series) [facility] Start: 04-10-2027 Diabetes Screening Diabetes Screening [facility] Start: 10-25-2026 Diabetes Screening Diabetes Screening [facility] Start: 02-12-2026 Screening for osteoporosis Bone Density Scan [facility] Start: 01-08-2026 End: 01-08-2026 Patient encounter procedure TRENT ZEE Start: 04-06-2025 End: 04-06-2025 Patient encounter procedure 04/06/2025 9:30 AM EDT Office Visit [facility] [address] [place] [address] Camille Harris MD [address] [place] [address] [facility] Start: 02-16-2025 Influenza vaccination [facility] Start: 02-04-2025 End: 02-04-2025 Clinical Support [facility] Comment on above: Arrived Start: 01-08-2025 End: 01-08-2025 Patient encounter procedure [facility] Comment on above: Arrived Start: 01-01-2025 End: 01-01-2025 Patient encounter procedure 01/01/2025 10:30 AM EDT Office Visit [facility] [address] [place] [address] Karime Franco PA [address] [place] [phone] [facility] Start: 12-24-2024 End: 12-24-2024 Clinical Support [facility] Comment on above: Arrived Start: 11-12-2024 End: 11-12-2024 Clinical Support [facility] Comment on above: Arrived Start: 11-07-2024 End: 11-07-2024 Follow-up encounter Hematology/Oncolog y Comment on above: [address] and lab Start: 11-05-2024 [facility] Start: 11-03-2024 End: 02-02-2025 Comprehensive metabolic 2000 panel - Serum or Plasma COMPREHENSIVE METABOLIC PANEL Lab Routine 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) Expected: 11/03/2024 (Approximate), Expires: 02/02/2025 [facility] Work Phone: Comment on above: Expected: 11/03/2024 (Approximate), Expi res: 02/02/2025 Start: 11-03-2024 End: 11-03-2024 Patient encounter procedure 11/03/2024 9:00 AM EDT Appointment [facility]iology [facility] [address] [place] [address] [place] [address] Ct Chest and neck with contrast and lab [facility]iology [facility] CT Comment on above: Ct Chest and neck with contrast and lab Start: 11-01-2024 End: 11-01-2024 CBC W Auto Differential panel - Blood COMPLETE BLOOD COUNT AND DIFFERENTIAL Lab Routine 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) Expected: 11/01/2024 (Approximate), Expires: 11/01/2024 [facility] Comment on above: Expected: 11/01/2024 (Approximate), Expi res: 11/01/2024 Start: 11-01-2024 End: 11-01-2024 Comprehensive metabolic 2000 panel - Serum or Plasma COMPREHENSIVE METABOLIC PANEL Lab Routine 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) Expected: 11/01/2024 (Approximate), Expires: 11/01/2024 [facility] Comment on above: Expected: 11/01/2024 (Approximate), Expi res: 11/01/2024 Start: 11-01-2024 End: 12-01-2024 CT Chest W contrast IV CT CHEST W IVCON Radiology Routine 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) Expected: 11/01/2024 (Approximate), Expires: 12/01/2024 [facility] Comment on above: Expected: 11/01/2024 (Approximate), Expi res: 12/01/2024 Start: 11-01-2024 End: 12-01-2024 CT Neck W contrast IV CT NECK SOFT TISSUE W IVCON Radiology Routine 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) Expected: 11/01/2024 (Approximate), Expires: 12/01/2024 [facility] Work Phone: Comment on above: Expected: 11/01/2024 (Approximate), Expi res: 12/01/2024 Start: 10-10-2024 X-ray of cervical spine XR cervical spine 2V [facility] Start: 10-10-2024 XR Cervical spine 2 Views [facility] Start: 10-06-2024 DIABETES SCREEN DIABETES SCREEN [facility] Start: 09-29-2024 End: 09-29-2024 Patient encounter procedure 09/29/2024 11:00 AM EDT Office Visit [facility] [address] [place] [phone] Camille Harris MD [address] [facility], [address] [facility] [address] [facility] Start: 09-11-2024 End: 09-11-2024 Clinical Support 09/11/2024 10:40 AM EDT Clinical Support [facility] [address] [facility] [address] [place] [address] Elvi Cadean MD [address], [place] [id number] [facility] Start: 09-11-2024 Ankle brachial pressure index US ankle/arm indices [facility] Start: 07-31-2024 End: 07-31-2024 Clinical Support [facility] Comment on above: Arrived Start: 07-02-2024 End: 07-02-2024 Clinical Support [facility] Comment on above: Arrived Start: 06-30-2024 End: 06-30-2025 XR Cervical spine 2 or 3 Views XR cervical spine 2-3 views Imaging Routine Status post cervical spinal fusion Expected: 06/30/2024, Expires: 06/30/2025 [facility] Service Area Work Phone: Comment on above: Expected: 06/30/2024, Expires: Start: 06-30-2024 End: 06-30-2024 Patient encounter procedure [facility] Start: 05-21-2024 End: 05-21-2024 Clinical Support 05/21/2024 2:00 PM EST Clinical Support [facility] [address] [facility] [address] [place] [address] Elvi Cadena MD [address], [place] [id number] Arrived [facility] Comment on above: Arrived Start: 05-16-2024 End: 05-16-2024 Patient encounter procedure 05/16/2024 9:15 AM EST Office Visit [facility] [address] [place] [address] Camille Harris MD [address] [facility], [address] [place] [address] [facility] Start: 05-02-2024 End: 05-02-2024 Patient encounter procedure [facility] Start: 04-30-2024 End: 04-30-2025 XR Cervical spine 2 or 3 Views XR cervical spine 2-3 views Imaging Routine Cervical radiculopathy Status post cervical spinal fusion Expected: 04/30/2024, Expires: 04/30/2025 [facility] Service Area Work Phone: Comment on above: Expected: 04/30/2024, Expires: Start: 04-30-2024 End: 04-30-2024 Patient encounter procedure 04/30/2024 1:00 PM EST Office Visit [facility] [address] [address] [place] [phone] Solomon Narayanan PA-C [address] [place], [place] [phone] [facility] Start: 04-09-2024 End: 04-09-2024 Admission to same day surgery center 04/09/2024 7:45 AM EDT - 04/09/2024 12:25 PM EDT Surgery [facility] [place] [address] [place] [address] Camille Harris MD [address] [facility] [place] [address] Fusion Spine Anterior Cervical and Discectomy C5-6, C6-7 [56258 (CPT )] [facility] [place] Comment on above: Fusion Spine Anterior Cervical and Disce ctomy C5-6, C6-7 [[id number] (CPT )] Start: 04-09-2024 End: 04-09-2024 Arthrd ant interbody decompress cervical belw c2 Fusion Spine Anterior Cervical and Discectomy Cervical radiculopathy Senile osteoporosis 04/09/2024 7:45 AM EDT Virtual [facility] [place] Start: 04-09-2024 Subsequent hospital visit by physician 04/09/2024 7:45 AM EDT Hospital Encounter [facility] [place] [address] [place] [address] Camille Harris MD [address] [facility] [place] [address] [facility] [place] Start: 03-15-2024 DTaP/Tdap/Td Vaccines (2 - Td or Tdap) DTaP/Tdap/Td Vaccines (2 - Td or Tdap) [facility] Start: 03-15-2024 Urine microalbumin profile DTaP,Tdap,Td Vaccine (2 - Td or Tdap) [facility] Start: 03-11-2024 End: 03-11-2024 Patient encounter procedure 03/11/2024 11:30 AM EDT Office Visit [facility] [address] [place] [address] Solomon Narayanan PA-C [address] [place], [place] [phone] [facility] Start: 03-03-2024 Influenza vaccination Influenza Vaccine (#1) [facility] Comment on above: Postponed from 02/16/2023 (Patient Refus ed) Start: 02-27-2024 End: 02-27-2024 Admission to same day surgery center [facility] [place] Comment on above: Anterior Cervical Discectomy and Fusion C5-6, C6-7 [13847 (CPT )] Start: 02-27-2024 End: 02-27-2024 Arthrd ant interbody decompress cervical belw c2 Virtual [facility] [place] Start: 02-27-2024 Subsequent hospital visit by physician [facility] [place] Start: 02-17-2024 COVID-19 Vaccine ( season) COVID-19 Vaccine ( season) [facility] Start: 02-17-2024 Covid-19 Vaccine ( season) Covid-19 Vaccine ( season) [facility] Start: 02-17-2024 Covid-19 Vaccine ( season) Covid-19 Vaccine () [facility] Start: 02-17-2024 Influenza vaccination [facility] Start: 02-15-2024 End: 02-15-2024 Patient encounter procedure 02/15/2024 9:00 AM EDT Office Visit [address] [address] Vincenzo Sanchez MD [address] [place] [address] [address], [facility] [address] [place], [place] [phone] [facility] Start: 02-13-2024 End: 02-13-2024 Patient encounter procedure 02/13/2024 11:00 AM EDT Appointment [facility] [address] [place] [address] [facility] Start: 02-03-2024 End: 01-02-2025 Nicotine and Metabolites,S Nicotine and Metabolites,S Lab Routine Cervical radiculopathy Senile osteoporosis Expected: 02/03/2024 (Approximate), Expires: 01/02/2025 [facility] Work Phone: Comment on above: Expected: 02/03/2024 (Approximate), Expi res: 01/02/2025 Start: 01-03-2024 End: 01-02-2025 DXA Skeletal system.axial Views for bone density XR DEXA bone density axial skeleton w VFA Imaging Routine Senile osteoporosis Expected: 01/03/2024, Expires: 01/02/2025 [facility] Service Area Work Phone: Comment on above: Expected: 01/03/2024, Expires: Start: 01-03-2024 End: 01-02-2025 XR Cervical spine 6 Views XR cervical spine complete 6+ views Imaging Routine Cervical radiculopathy Expected: 01/03/2024, Expires: 01/02/2025 [facility] Work Phone: Comment on above: Expected: 01/03/2024, Expires: Start: 01-03-2024 End: 01-03-2024 Patient encounter procedure 01/03/2024 1:30 PM EDT Office Visit [facility] [address] [facility] [address] [place] [phone] Camille Harris MD [address] [facility], [facility] [address] [place], [place] [phone] [facility] Start: 12-13-2023 End: 12-12-2024 MR Brain WO and W contrast IV MR brain w and wo IV contrast Imaging Routine Pontine glioma (Multi) Expected: 12/13/2023 (Approximate), Expires: 12/12/2024 [facility] Service Area Work Phone: Comment on above: Expected: 12/13/2023 (Approximate), Expi res: 12/12/2024 Start: 12-13-2023 End: 12-13-2023 Patient encounter procedure [facility] Start: 09-28-2023 End: 09-28-2023 Patient encounter procedure 09/28/2023 10:15 AM EDT Office Visit [facility] [address] [place] [address] [place] [address] Department [place] [address] [facility] Start: 09-05-2023 Ankle brachial pressure index [facility] Start: 08-30-2023 End: 08-30-2023 Patient encounter procedure 08/30/2023 9:40 AM EDT Office Visit [facility] [address] [place] [address] Nikole Mota, FAMILY SUPPORT SPECIALIST [address] [place] [address], [place] [address] [facility] Start: 07-26-2023 End: 07-26-2023 Patient encounter procedure 07/26/2023 1:30 PM EST Procedure Visit [facility] [address] [place] [address], [place] [address] Nikole Mota, FAMILY SUPPORT SPECIALIST [address] [place] [address], [place] [address] [facility] [address] Start: 07-19-2023 End: 07-19-2023 Clinical Support 07/19/2023 1:30 PM EST Clinical Support [facility] [address] [place] [address] Nikole Mota, FAMILY SUPPORT SPECIALIST [address] [place] [address], [place] [address] Cervical dystonia [facility] Comment on above: Cervical dystonia Start: 06-18-2023 Behavioral Health Screening Behavioral Health Screening [facility] Start: 05-07-2023 Pulse volume recorder pneumoplethysmography US arterial pvr rest [facility] Start: 05-07-2023 [facility] Start: 05-07-2023 [facility] Start: 04-25-2023 Pulse volume recorder pneumoplethysmography US arterial pvr rest [facility] Start: 02-16-2023 COVID-19 Vaccine ( season) COVID-19 Vaccine ( season) [facility] Start: 02-16-2023 Influenza vaccination INFLUENZA (Season Ended) [facility] Start: 2022 RSV High Risk: (Elderly (60+) or Population) (1 - Risk 60-74 years 1-dose series) RSV High Risk: (Elderly (60+) or Population) (1 - Risk 60-74 years 1-dose series) [facility] Start: 2022 RSV patients and/or patients aged 60+ years (1 - 1-dose 60+ series) RSV patients and/or patients aged 60+ years (1 - 1-dose 60+ series) [facility] Start: 2022 RSV Vaccine (1 - 1-dose 60+ series) RSV Vaccine (1 - 1-dose 60+ series) 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) Lung nodules Malignant neoplasm of head, face and neck (HCC) Expected: 10/30/2022 (Approximate), Expires: 10/30/2022 [facility] Work Phone: Comment on above: Expected: 10/30/2022 (Approximate), Expi res: 10/30/2022 Start: 10-30-2022 End: 11-29-2022 Ct soft tissue neck w/contrast material CT NECK SOFT TISSUE W IVCON Radiology Routine Malignant neoplasm of head, face and neck (HCC) Expected: 10/30/2022 (Approximate), Expires: 11/29/2022 [facility] Work Phone: Comment on above: Expected: 10/30/2022 (Approximate), Expi res: 11/29/2022 Start: 10-30-2022 End: 11-29-2022 Ct thorax w/contrast material CT CHEST W IVCON Radiology Routine Lung nodules Expected: 10/30/2022 (Approximate), Expires: 11/29/2022 [facility] Work Phone: Comment on above: Expected: 10/30/2022 (Approximate), Expi res: 11/29/2022 Start: 10-13-2022 Adult depression screening assessment DEPRESSION SCREENING [facility] Start: 07-17-2022 Aerobic Culture Aerobic Culture [facility] Start: 07-17-2022 Anaerobic Culture Anaerobic Culture [facility] Start: 07-17-2022 Microscopic observation [Identifier] in Unspecified specimen by Gram stain [facility] Start: 07-17-2022 Cerebrospinal fluid culture [facility] Start: 07-17-2022 End: 07-17-2022 [facility] Start: 07-17-2022 [facility] Start: 06-18-2022 DEPRESSION ASSESSMENT DEPRESSION ASSESSMENT [facility] Start: 04-16-2022 Plain chest X-ray XR ribs LT min 3V w CXR1V* [facility] Start: 04-16-2022 XR Unspecified body region Views [facility] Start: 02-16-2022 Influenza vaccination [facility] Start: 10-14-2021 Adult depression screening assessment DEPRESSION SCREENING [facility] Start: 06-23-2021 COVID-19 VACCINE (3 - Booster for Pfizer series) COVID-19 VACCINE (3 - Booster for Pfizer series) [facility] Start: 06-18-2021 DEPRESSION ASSESSMENT DEPRESSION ASSESSMENT [facility] Start: 03-18-2021 COVID-19 VACCINE (3 - Booster for Pfizer series) COVID-19 VACCINE (3 - Booster for Pfizer series) [facility] Start: 2017 PROSTATE CANCER SCREENING DISCUSSION PROSTATE CANCER SCREENING DISCUSSION [facility] Start: 2017 Prostate specific antigen measurement Prostate Cancer Screening Discussion [facility] Start: 2012 Pneumococcal Vaccine: 50+ (1 of 1 - PCV) Pneumococcal Vaccine: 50+ (1 of 1 - PCV) [facility] Start: 2012 Screening for malignant neoplasm of lung Lung Cancer Screening [facility] Start: 2012 SHINGRIX VACCINE (1 of 2) SHINGRIX VACCINE (1 of 2) [facility] Start: 2012 Zoster Vaccines (1 of 2) Zoster Vaccines (1 of 2) [facility] Start: 11-25-2007 COLOGUARD (FIT-DNA) COLOGUARD (FIT-DNA) [facility] Start: 11-25-2007 Colonoscopy COLONOSCOPY [facility] Start: 11-25-2007 COLORECTAL CANCER SCREENING COLORECTAL CANCER SCREENING [facility] Start: 11-25-[address] COLONOGRAPHY [facility] Start: 11-25-2007 FECAL OCCULT BLOOD FECAL OCCULT BLOOD [facility] Start: 11-25-2007 Prostate specific antigen measurement Prostate Cancer Screening Discussion [facility] Start: 11-25-2007 Screening for malignant neoplasm of colon [facility] Start: 11-25-2007 SIGMOIDOSCOPY SIGMOIDOSCOPY [facility] Start: 1997 Lipid panel Lipid Screening [facility] Start: 1997 LIPID SCREEN LIPID SCREEN [facility] Start: 1981 Hepatitis A Vaccines (1 of 2 - Risk 2-dose series) Hepatitis A Vaccines (1 of 2 - Risk 2-dose series) [facility] Start: 1981 Pneumococcal vaccination Pneumococcal Vaccine (1 of 2 - PCV) [facility] Start: 1981 Urine microalbumin profile DTAP,TDAP,TD (1 - Tdap) [facility] Start: 1980 Anxiety Screening Anxiety Screening [facility] Start: 1980 Depression Screening Depression Screening [facility] Start: 1980 Diabetes mellitus screening Diabetes Screening [facility] Start: 1980 HEPATITIS C SCREENING HEPATITIS C SCREENING [facility] Start: 1980 Hepatitis C screening Hepatitis C Screening [facility] Start: 1980 HIV SCREENING HIV SCREENING [facility] Start: 1980 HIV screening HIV Screening [facility] Start: 1968 Pneumococcal Vaccine: Pediatrics (0 to 5 Years) and At-Risk Patients (6 to 64 Years) (1 of 2 - PCV) Pneumococcal Vaccine: Pediatrics (0 to 5 Years) and At-Risk Patients (6 to 64 Years) (1 of 2 - PCV) [facility] Start: 11-25-1963 MMR Vaccines (1 of 1 - Standard series) MMR Vaccines (1 of 1 - Standard series) [facility] Start: 1962 Annual wellness visit Welcome to Medicare Visit [facility] Start: 1962 HIV screening HIV Screening [facility] Start: 1962 Lipid panel Lipid Panel [facility] Start: 1962 Screening for malignant neoplasm of colon [facility] Start: 1962 Screening for osteoporosis Bone Density Scan [facility] Start: 1962 Yearly Adult Physical Yearly Adult Physical [facility] Ankle brachial pressure index [facility] Bacteria identified in Cerebral spinal fluid by Culture CSF CULT + STAIN Microbiology Routine NPH (normal pressure hydrocephalus) ([facility]) Ordered: 09/13/2022 [facility] Work Phone: Comment on above: Ordered: 09/13/2022 Bacteria identified in Unspecified specimen by Aerobe culture [facility] Bacteria identified in Unspecified specimen by Anaerobe culture [facility] End: 04-12-2024 Basic metabolic 2000 panel - Serum or Plasma Basic metabolic panel Lab Routine Morning draw (Lab) for 3 Occurrences starting 04/10/2024 until 04/12/2024, 1 completed [facility] Work Phone: Comment on above: Morning draw (Lab) for 3 Occurrences sta rting 04/10/2024 until 04/12/2024, 1 completed End: 04-12-2024 CBC panel - Blood by Automated count CBC Lab Routine Morning draw (Lab) for 3 Occurrences starting 04/10/2024 until 04/12/2024, 1 completed [facility] Work Phone: Comment on above: Morning draw (Lab) for 3 Occurrences sta rting 04/10/2024 until 04/12/2024, 1 completed Cell count panel - C erebral spinal fluid CSF CELL COUNT Lab Routine NPH (normal pressure hydrocephalus) ([facility]) Ordered: 09/13/2022 [facility] Work Phone: Comment on above: Ordered: 09/13/2022 Cell count, cerebros roberto fluid [facility] Comprehensive metabo lic 2000 panel - Serum or Plasma [facility] End: 04-09-2024 Continuous Pulse oximetry, In Phase 1 Continuous Pulse oximetry, In Phase 1 Respiratory Care Routine Continuous until discontinued starting 04/09/2024 [facility] Service Area Work Phone: Comment on above: Continuous until discontinued starting 1 Enolase.neuron speci fic [Mass/volume] in Serum or Plasma by Immunoassay [facility] Fungus identified in Unspecified specimen by Culture [facility] Glucose [Mass/volume ] in Cerebral spinal fluid [facility] Glucose [Mass/volume ] in Serum or Plasma POCT Glucose Point of Care Testing - Docked Device Routine As needed (Lab) until discontinued starting 04/09/2024 [facility] Service Area Work Phone: Comment on above: As needed (Lab) until discontinued start ing 04/09/2024 End: 04-09-2024 Incentive spirometry Instruct Incentive spirometry Instruct Respiratory Care Routine Once for 1 Occurrences starting 04/09/2024 until 04/09/2024 [facility] Work Phone: Comment on above: Once for 1 Occurrences starting 04/09/20 until 04/09/2024 IR LP FOR DRAINAGE (PRESSURE) IR LP FOR DRAINAGE (PRESSURE) Radiology Routine NPH (normal pressure hydrocephalus) (HCC) Ordered: 09/13/2022 [facility] Work Phone: Comment on above: Ordered: 09/13/2022 Meningitis+Encephali tis pathogens DNA and RNA panel - Cerebral spinal fluid by JER with non-probe detection [facility] End: 10-20-2023 Mri brain brain stem w/o w/contrast material MRI BRAIN WO/W IVCON Radiology Routine 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HCC) 1 Occurrences starting 09/20/2022 until 10/20/2023 [facility] Work Phone: Comment on above: 1 Occurrences starting 09/20/2022 until 10/20/2023 Patient Education [facility] Work Phone: Patient referral [facility] Work Phone: Protein [Mass/volume ] in Cerebral spinal fluid [facility] End: 04-09-2024 Urethral Catheter Removal Urethral Catheter Removal Procedures Routine Once for 1 Occurrences starting 04/09/2024 until 04/09/2024 [facility] Work Phone: Comment on above: Once for 1 Occurrences starting 04/09/20 until 04/09/2024 Virus identified in Unspecified specimen by Culture [facility] End: 02-13-2024 XR Cervical spine 6 Views [facility] Service A hermila Work Phone: Comment on above: Once for 1 Occurrences starting 02/13/20 24 until 02/13/2024 XR Chest 2 Views XR chest 2 view s Imaging Routine Cervical radiculopathy Senile osteoporosis 02/13/2024 11:10 AM EDT [facility] Work Phone: XR Chest 2 Views [facility] Immunizations Immunization Date Immunization Notes Care Provider Fa cility 01-21-2021 COVID-19 Vaccine Pfi zer - Documentation Purposes Only Griselda Kuns Other [facility] 12-30-2020 COVID-19 Vaccine Pfi zer - Documentation Purposes Only Griselda Kuns Other [facility] 01-24-2016 KENALOG - 10 mg Griselda Kuns Other [facility] [employer] Other 01-27-2015 Toradol per 15 mg Griselda Kuns Other [facility] Other 03-15-2014 tetanus toxoid, redu julienne diphtheria toxoid, and acellular pertussis vaccine, adsorbed Griselda Kuns Other [facility] [employer] Other Payers Date Payer Category Payer Self-pay [id number] 2024 Medicare [id number] [id number]. [id number] 2024 Medicare [id number] 2023 Managed Care (Private) [facility] [id number]. [id number] 2022 Private Health Insurance [id number] 2.16.840.1.607814.19 2021 Private Health Insurance [facility] [employer] GENERIC [id number] 2021-Present [phone] [address] [place] [address] PPO [id number]. [id number] 2019 Medicaid [employer] [id number] 2019-Present [phone] [address] [place] [address] Medicaid [id number]. [id number] 2019 Medicaid [id number]. 1.13.159.2. [id number] 2019 Private Health Insurance 1.2 .840.292479.1.13.159.2. 7.3.804276.315 2019 Unknown [id number] 2019 Unknown 2019 Unknown [id number] 2.16.840.1.860528.19 1962 Unknown [id number] 2.16.840.1.594261.3.579.2. 693 1962 Unknown [id number] 2.16.840.1.675591.3.579.2. 182 1962 Unknown [id number] 2.16.840.1.047984.3.579.2. 182 1962 Unknown [id number] 2.16.840.1.728050.3.579.2. 196 1962 Unknown [id number] 2.16.840.1.637779.3.579.2. 196 1962 Unknown [id number] 2.16.840.1.749861.3.579.2. 196 1962 Unknown [id number] 2.16.840.1.220787.3.579.2. 196 1962 Unknown [id number] 2.16.840.1.685149.3.579.2. 196 1962 Unknown [id number] 2.16.840.1.030027.3.579.2. 196 1962 Unknown [id number] 2.16.840.1.626321.3.579.2. 196 1962 Unknown [id number] 2.16.840.1.624231.3.579.2. 1244 1962 Unknown [id number] 2.16.840.1.217625.3.579.2. 1244 1962 Unknown [id number] 2.16.840.1.615485.3.579.2. 1244 1962 Unknown [id number] 2.16.840.1.268248.3.579.2. 1244 1962 Unknown [id number] 2.16.840.1.494560.3.579.2. 1244 1962 Unknown [id number] 2.16.840.1.486936.3.579.2. 1244 1962 Unknown [id number] 2.16.840.1.992978.3.579.2. 1245 1962 Unknown [id number] 2.16.840.1.087167.3.579.2. 1244 1962 Unknown [id number] 2.16.840.1.168342.3.579.2. 1244 1962 Unknown [id number] 2.16.840.1.807924.3.579.2. 1244 1962 Unknown [id number] 2.16.840.1.872003.3.579.2. 1244 1962 Unknown [id number] 2.16.840.1.213552.3.579.2. 1245 1962 Unknown [id number] 2.16.840.1.700831.3.579.2. 1245 1962 Unknown [id number] 2.16.840.1.117216.3.579.2. 1245 1962 Unknown [id number] 2.16.840.1.978890.3.579.2. 1243 1962 Unknown [id number] 2.16.840.1.309038.3.579.2. 1243 1962 Unknown [id number] 2.16.840.1.236976.3.579.2. 1243 1962 Unknown [id number] 2.16.840.1.043888.3.579.2. 1258 1962 Unknown [id number] 2.16.840.1.143021.3.579.2. 1258 1962 Unknown [id number] 2.16.840.1.679585.3.579.2. 1258 1962 Unknown [id number] 2.16.840.1.127656.3.579.2. 1258 1962 Unknown [id number] 2.16.840.1.608385.3.579.2. 1258 1962 Unknown [id number] 2.16.840.1.950939.3.579.2. 1259 1962 Unknown [id number] 2.16.840.1.478146.3.579.2. 1259 1962 Unknown [id number] 2.16.840.1.373167.3.579.2. 1259 1962 Unknown [id number] 2.16.840.1.251606.3.579.2. 1259 Private Health Insurance [id number] Unknown [id number] Unknown [id number] 2.16.840.1.077785.3.579.2. 531 Unknown [id number] 2.16.840.1.605295.3.579.2. 531 Unknown [id number] 2.16.840.1.497928.3.579.2. 531 Unknown [id number] 2.16.840.1.115088.3.579.2. 531 Unknown [id number] 2.16.840.1.667424.3.579.2. 531 Unknown [id number] 2.16.840.1.199692.3.579.2. 531 Unknown [id number] 2.16.840.1.412938.3.579.2. 531 Unknown [id number] 2.16.840.1.713822.3.579.2. 531 Social History Date Type Detail Facility Start: 04-29-2018 End: 11-05-2024 Tobacco smoking status CTIS Smoker (finding) [facility] Start: 1960 Sex Assigned At Male F [facility] Start: 10-16-2019 Tobacco smoking status CTIS Ex-smoker [facility] Start: 06-18-1973 History of tobacco use Cigarette Smoker [facility] Start: 10-16-2019 End: 09-24-2024 Cigarettes smoked current (pack per day) - Reported 1.5 [facility] Start: 10-16-2019 End: 01-02-2024 Tobacco use and exposure Smokeless tobacco non-user [facility] Start: 10-14-2020 End: 01-08-2025 Alcohol intake Ex-drinker (finding) [facility] Start: 01-20-2019 History SDOH Alcohol Comment quit 2002 [facility] Start: 10-16-2019 Tobacco Comment quit smoking 01/2019 [facility] Start: 1960 Sex Assigned At Not on file [facility] Start: 10-03-2021 End: 10-13-2024 Exposure to SARS-CoV-2 (event) Not sure [facility] Start: 07-03-2023 End: 09-24-2024 Sex Assigned At [facility] Start: 03-10-2022 End: 03-20-2022 Exposure to SARS-CoV-2 (event) Unable to assess [facility] Work Phone: Start: 12-28-2022 End: 01-02-2024 Daily Smoker [facility] Start: 03-13-2023 Tobacco Comment 6-10 cigarettes/day [facility] Start: 09-20-2022 Gender identity Identifies as male gender (finding) [facility] Start: 09-20-2022 Sexual orientation Heterosexual (fin ding) [facility] Tobacco smoking status NHIS Tobacco smoking consumption unknown [facility] Work Phone: Start: 10-05-2023 End: 01-03-2024 Alcoholic beverage intake Lifetime non-drinker (finding) [facility] Work Phone: Adult Depression Screening Assessment 2 [facility] How often to you hav e a drink containing alcohol? Never [facility] In the past 12 months, was there a time when you were not able to pay the mortgage or rent on time? No [facility] Work Phone: Start: 04-28-2024 End: 11-25-2024 Sex Male (finding) [facility] NEGATED: Highlighted rowStart: NINF History of tobacco use Passive smoker [facility] Work Phone: Medical Equipment Procedure Code Equipment Code Equipment Origin al Text Equipment Identifier Dates Angiogram, lower extremity, left Multiple peripheral artery stent, bare-metal [id number] FDA Start: 05-07-2023 Allograft, Triad Lordotic 6 X 11 X 14 - [id number] - [id number] Start: 04-09-2024 Allograft, [employer]ad Lordotic 6 X 11 X 14 - [id number] - [id number] Start: 04-09-2024 Plate, Acp, 1.6v , 2 Level, 34mm - [id number] Start: 04-09-2024 Screw, Acp, Self Drill, 3.5 X 17mm, Variable - [id number] Start: 04-09-2024 3.5 X 19mm Screw [id number] Start: 04-09-2024 Comment on above: Description: per juan carlos l only jdr 04/10 Goals Date Patient Goal Desired Activity /State Personal health goal Functional Status Date Assessment Result Facility 10-13-2024 Patient Health Quest ionnaire 2 item (PHQ-2) [Reported] [facility] Work Phone: 10-13-2024 PHQ-9 quick depressi on assessment panel [Reported.PHQ] [facility] Work Phone: Clinical Notes 11-03-2008 to 01-08-2025 [...] INFLAMED SEBORRHEIC KERATOSIS Left Wrist - Anterior [place] and brown stuck on verrucous scaly papule [...] limited to risks of scarring, darker or certified alcohol and drug counselor pigmentary changes, recurrence, incomplete removal and infection. [...] limited to risks of scarring, darker or certified alcohol and drug counselor pigmentary changes, recurrence, incomplete removal and infection. [...] year, skin check documented in this encounter [facility] 12-24-2024 History of Presen t illness Narrative [...] spinal cord stimulator, as suggested by his paintings conservator, and is scheduled to see his doctor [...] was administered today. documented in this encounter [facility] 11-19-2024 Evaluation note Authored November 19, 2024 2:36p m Sooner if needed, the ER if concerns,The above note written by Shilpi Lantigua LPN acting as human recorder, note dictated by Dr. Griselda Hastings [facility] Work Phone: 1(661) 525-760705-28-2025 History of Present illness Narrative* Elvi Cadena [...] ezetimibe (ZETIA) 10 mg, Oral, Daily HYDROcodone-acetaminophen ([place]) 5-325 MG tablet take 1 tablet orally [...] Depression: Not at risk (11/05/2024) Received from [facility] PHQ-2 PHQ-2 score: 2 REVIEW OF SYMPTOMS: [...] Ana Luisa's absent. Ankle clonus absent. Coordination Rajtdd-ji-fpwg, rapid alternating movements and xwik-ck-npbt normal bilaterally without dysmetria. Gait Normal casual, [...] the injections if needed. documented in this encounterDoctors Hospital of [id number] NoteHNO ID: [id number] Author: MEMO COLE MD Service: ? Author Type: Physician Type: Progress Notes Filed: 11/07/2024 11:09 Note Text: NAME: Jovani Melendez CLINIC NO.: [id number] DATE OF SERVICE: November 07, 2024 (Curtis) Some elements in this clinic note that are critical to medical decision making have been carefully reviewed and included from a prior clinic note dated: November 02, 2023 (Curtis) Referring Provider: Griselda Hastings, DO Additional Clinicians involved in Jovani Melendez's care: Dr Kimberly Nichole ENT, Dr. 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 10/05/2021 - MRI Brain: [facility] There is T2 and T2 flair hyperintense [...] microvascular ischemic change. Brainst (more content not included)...[facility]05-19-2025 History of Present illness Narrative* Curtis Da [...] PRESENTS WITH AN IMPLANTABLE OR ATTACHED CERTIFIED MEDICAL TRANSCRIPTIONIST: No RADIOLOGY DEPARTMENT: CT; Exam(s) Completed: Chest and Neck PERIPHERAL IV DATA: Site assessment: Clean,Dry and Intact, Site disposition Discontinued SIGNED BY: RT Craig(R) November 03, 2024 8:32 AM documented in this encounterOhio[facility]-2025 NoteHNO ID: [id number] Author: CURTIS DA SILVA RN Service: ? [...] Melendez DATE: November 03, 2024 TIME: 8:13 [facility]05-19-2025 NoteHNO ID: [id number] Author: DEVIN DOYLE RT(R) Service: ? Author [...] PRESENTS WITH AN IMPLANTABLE OR ATTACHED CERTIFIED MEDICAL TRANSCRIPTIONIST: No RADIOLOGY DEPARTMENT: CT; Exam(s) Completed: Chest and Neck PERIPHERAL IV DATA: Site assessment: Clean,Dry and Intact, Site disposition Discontinued SIGNED BY: Devin Doyle, RT(R) November 03, 2024 8:32 [facility]05-19-2025 Telephone encounter Note* Telephone Encounter - Curtis Da Silva RN - 11/03/2024 7:49 AM EDT Please sign pended labs for 1 year f/u-will draw with CT today Thank You! Curtis Da Silva RN [facility]05-19-2025 Miscellaneous Notes* Telephone Encounter - Curtis Da Silva RN - 11/03/2024 7:49 AM EDT Please sign pended labs for 1 year f/u-will draw with CT today Thank You! Curtis Da Silva RN documented in this encounterOhio[facility]04-28-2025 History of Present illness Narrative* Camille Harris [...] assess the C7 screw. Camille Harris MD Script Worker of Neurosurgery [facility] [place] [facility] Neuroscience ICU Office: [phone] [1] Past Surgical History: Procedure Laterality Date [...] 60 capsule, Rfl: 0 documented in this [facility] Work Phone: 1(148) 212-483604-21-2025 [facility] [place] [address] [place] [address] CT Scan Report Signed Patient: Jovani Melendez MR#: [id number] : 1960 Acct:[id number] Age/Sex: 63 / M ADM Date: 5 Loc: ER Room: Type: [facility] ER Attending Dr: Copies to: Manisha [...] Dorothy Eubanks M.D.10/06/2024 4:08 PM Dictation Location: [place] [address] Transcribed By: MARISA 10/06/24 1608 Dictated By: Dorothy Eubanks MD 10/06/24 1556 Signed By: 10/06/24 1605 [facility] Work Phone: 1(175) 340-296304-21-2025 Radiology Diagnostic study [facility] Main [place] [address] [place] [address] CT Scan Report Signed Patient: Jovani Melendez MR#: [id number] : 1960 Acct:[id number] Age/Sex: 63 / M ADM Date: 5 Loc: ER Room: Type: [facility] ER Attending Dr: Copies to: Manisha [...] Dorothy Eubanks M.D.10/06/2024 3:56 PM Dictation Location: [place] [address] Transcribed By: [facility] 10/06/24 155 Dictated By: Dorothy Eubanks MD 10/06/24 155 Signed By: 10/06/24 155 [facility] Work Phone: 1(178) 593-900803-27-2025 Evaluation note* Diagnosis Onset Date Resolution Status Admit Date Current every day smoker acute September 11, 2024 8:53am PAD (peripheral artery disease) acut e September 11, 2024 8:53am Right leg claudication acute [facility] 2024 8:53am [facility] Work Phone: 1(757) 576-487303-27-2025 Evaluation note* Diagnosis Onset Date Resolution Status Admit Date Current every day smoker acute September 11, 2024 8:53am PAD (peripheral artery disease) acut e September 11, 2024 8:53am Right leg claudication acute [facility] 2024 8:53am Cardiac arrhythmia acute October 272024 9:37am Essential hypertension acute Sc y 2024 9:37am Hyperlipidemia acute October 27, 2024 9:37am 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, 2024 9:37am PAD (peripheral artery disease) sophy mone October 27, 2024 9:37am [facility] Work Phone: 1(143) 114-134303-27-2025 Evaluation note* Diagnosis Onset Date Resolution Status Admit Date Current every day smoker acute September 11, 2024 8:53am PAD (peripheral artery disease) acut e September 11, 2024 8:53am Right leg claudication acute [facility] 2024 8:53am Abdominal pain acute September 1:02pm [...] 1:57pm Dysphagia acute November 17, 2024 1:57pm [facility] Work Phone: 1(863) 744-668003-27-2025 Evaluation note* Diagnosis Onset Date Resolution Status Admit Date Current every day smoker acute September 11, 2024 8:53am PAD (peripheral artery disease) acut e September 11, 2024 8:53am Right leg claudication acute [facility] 2024 8:53am Abdominal pain acute September 1:02pm [...] infection) acute November 19, 2024 2 :26pm [facility] Work Phone: 1(491) 601-161803-27-2025 History of Present illness Narrative* Elvi W [...] ezetimibe (ZETIA) 10 mg, Oral, Daily HYDROcodone-acetaminophen ([place]) 5-325 MG tablet take 1 tablet orally [...] Depression: Not at risk (06/30/2024) Received from [facility] PHQ-2 Patient Health Questionnaire-2 Score: 2 REVIEW [...] Ana Luisa's absent. Ankle clonus absent. Coordination Dvsdag-yo-rxzk, rapid alternating movements and edhc-am-gzbm normal bilaterally without dysmetria. Gait Normal casual, [...] the injections if needed. documented in this encounterDoctors Hospital of [id number] History of Present illness Narrative* Elvi Cadena [...] ezetimibe (ZETIA) 10 mg, Oral, Daily HYDROcodone-acetaminophen ([place]) 5-325 MG tablet take 1 tablet orally [...] Depression: Not at risk (06/30/2024) Received from [facility] PHQ-2 Patient Health Questionnaire-2 Score: 2 REVIEW [...] the injections if needed. documented in this encounterDoctors Hospital of [id number] Evaluation note* Author Shilpi Lantigua [facility] Authored July 03, 2024 4 :44pm Sooner if needed, the ER if concerns,The above note written by Shilpi Lantigua LPN acting as human recorder, note dictated by Dr. Griselda Hastings [facility] Work Phone: 1(942) 821-532701-15-2025 History of Present illness Narrative* Elvi Cadena [...] ezetimibe (ZETIA) 10 mg, Oral, Daily HYDROcodone-acetaminophen ([place]) 5-325 MG tablet take 1 tablet orally [...] Depression: Not at risk (06/30/2024) Received from [facility] PHQ-2 Patient Health Questionnaire-2 Score: 2 REVIEW [...] injections at that time. documented in this encounterDoctors Hospital of [id number] History of Present illness Narrative* Camille Harris [...] another set of XR. Camille Harris MD Script Worker of Neurosurgery [facility] [place] [facility] ICU Office: [phone] Scribe Attestation By signing my name below, I, Shira Sen, Erlinda, attest that this documentation has been preparedunder the direction and in the presence of Camille Harris MD. documented in this [facility] Work Phone: 1(430) 824-434812-04-2024 History of Present illness Narrative* Elvi Cadena [...] ezetimibe (ZETIA) 10 mg, Oral, Daily HYDROcodone-acetaminophen ([place]) 5-325 MG tablet take 1 tablet orally [...] Depression: Not at risk (04/09/2024) Received from [facility] PHQ-2 Patient Health Questionnaire-2 Score: 0 REVIEW [...] his injections if needed. documented in this encounterDoctors Hospital of [id number] History of Present illness Narrative* Solomon Narayanan PA-C - 04/30/2024 1:00 PM EST Images from the original note were not included. [facility] [place] Department of Neurological Surgery Post Operative Patient [...] CAD (coronary artery disease) Peripheral vascular disease ([facility]) Past Medical History: Diagnosis Date Anxiety Cataract s/p excision of left Cervical radiculopathy Chronic pain disorder Coronary artery disease Depression Dysphagia thin liquids Hypertension NPH (normal pressure hydrocephalus) ([facility]erged With [facility]) PAD (peripheral artery disease) ([facility]) s/p stent (05/2023) on ASA 81mg Peripheral vascular disease ([facility]) Pontine lesion watchful waiting Pulmonary nodule Skin cancer of scalp s/p excsison Spinal stenosis severe cervical stenosis, left sided foraminal stenosis at C5-6 and C6-7 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 Tongue cancer ([facility] With [facility]) s/p resection Vision loss Past Surgical History: [...] directly. Sincerely, RICH Hernandez, PAFranC Associate Physician Harvest Contractor, Neurosurgery Clinical Script Worker [facility] [place] [address] documented in this [facility] Work Phone: [phone]) [phone] Evaluation note* Diagnosis Onset Date Resolution Status [...] prostate cancer acute July 03, 2024 9:23am [facility] Work Phone: [phone] Hospital course Narrative* Aaron Gallo PA-C - [...] HYDROcodone-acetaminophen 5-325 mg tablet; Commonly known as: [place] tiZANidine 4 mg capsule; Commonly known as: Zanaflex Outpatient Follow-Up Future Appointments Date Time Provider Department Center 04/30/2024 1:00 PM Solomon Narayanan PA-C [id number] [place] 05/02/2024 9:00 AM [facility] 05/02/2024 10:00 AM Ignacia Jack MD [id number] [facility] 06/30/2024 9:00 AM Camille Harris MD [id number] [place] Aaron Gallo PA-C documented in this [facility] Work Phone: [phone] History of Present illness Narrative* Nikole Lezama, PharmD - 04/10/2024 12:11 PM EDT Pharmacy Medication History Review Jovani Melendez is a 63 y.o. male admitted for Cervical radiculopathy. Pharmacy reviewed the patient's rkjbh-xj-wvpvocnen medications and allergies for accuracy. Medications ADDED: norco Medications CHANGED: Tizanidine nightly to as needed Medications REMOVED: Diamox Albuterol The list below reflects the updated PHYSICIAN COMPENSATION ANALYST list. Prior to Admission Medications Prescriptions Last Dose Informant HYDROcodone-acetaminophen ([place]) 5-325 mg tablet Self Sig: Take 1.5 [...] Report Patient interview (good historian-required some prompting) [facility] medical [facility] 01/29 Additional Comments: none Nikole Lezama PharmD Transitions of Care Pharmacist 04/10/24 Secure Chat preferred If no response call [phone] or RF Arrays Rec * Tori Johnson OT - 04/10/2024 11:57 AM EDT Occupational Therapy Evaluation Patient Name: Jovani Melendez Today's Date: 04/10/2024 Room: [address] [place] [address] Time Calculation Start Time: 1019 Stop Time: [...] bars in shower Prior Function: Level of [place]: Independent with ADLs and functional transfers, Independent with homemaking with ambulation ADL Assistance: Independent Homemaking Assistance: Independent Ambulatory Assistance: Independent 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, 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 [...] LUE LUE: Within Functional Limits Outcome Measures: [facility] Daily Activity Putting on and [...] 11:57 AM TORI JOHNSON OT Rehab Office: [phone] * Tia Caceres, PT - 04/10/2024 10:33 AM EDT Physical Therapy Physical Therapy Evaluation Patient Name: Jovani Melendez Department: [place] [address] Room: [address] [place] [address] Today's Date: 04/10/2024 Time Calculation Start Time: [...] Prior Function Per Pt/Caregiver Report Level of [place]: (independent ambulation in/outdoors no device, independent stairclimbing as needed, no falls) ADL Assistance: Independent Homemaking Assistance: Independent Ambulatory Assistance: Independent 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 [facility] Work Phone: [phone]) [phone] Plan of care note* Care Plan - [...] goals for the shift include pain management. [facility] Work Phone: [phone]) [phone] Miscellaneous Notes* Care Plan - Elizabeth Esposito [...] (B) Operative Note Date: 04/09/2024 OR Location: [facility] OR Name: Jovani Melendez, : 1960, Age: 63 y.o., , Sex: male Diagnosis Pre-op Diagnosis * Cervical radiculopathy [M54.12] * Senile osteoporosis [M81.0] Post-op Diagnosis * Cervical radiculopathy [M54.12] * Senile osteoporosis [M81.0] Procedures Fusion Spine Anterior Cervical and Discectomy C5-6, C6-7 79468 - VA ARTHRD ANT INTERBODY DECOMPRESS CERVICAL BELW C2 VA ARTHRD ANT INTERBODY DECOMPRESS CERVICAL BELW C2 [95825] VA ARTHRD ANT INTERDY CERVCL BELW C2 EA ADDL NTRSPC [82634] VA ALLOGRAFT FOR SPINE SURGERY ONLY STRUCTURAL [94545] VA MICROSURG TQS REQ USE OPERATING MICROSCOPE [50975] Surgeons * Camille Harris - Primary Resident/Fellow/Other Harvest Contractor: Surgeons and Role: * Chicho Bryan MD [...] 85 mL Specimen: No specimens collected Staff: Pharmaceutical Officer: Derrell Scrub Person: Beverly Scrub Person: Shaina Drains and/or Catheters: Closed/Suction Drain 1 Neck Bulb 10 Fr. (Active) Urethral Catheter Double-lumen;Non-latex 16 Fr. (Active) Tourniquet Times: Implants: Implants Type Name Action Serial No. Spinal Hardware SCREW, DISTRACTION, 14 MM - [id number] Used, Not Implanted Spinal Hardware ALLOGRAFT, TRIAD LORDOTIC 6 X 11 X 14 - [id number] - [id number] Implanted [id number] Spinal Hardware ALLOGRAFT, TRIAD LORDOTIC 6 X 11 X 14 - [id number] - [id number] Implanted [id number] Spinal Hardware PLATE, ACP, 1.6V, 2 LEVEL, 34MM - [id number] Implanted Spinal Hardware SCREW, ACP, SELF DRILL, 3.5 X 17MM, VARIABLE - [id number] Implanted 3.5 X 19MM SCREW Implanted Findings: [...] then placed our self-retaining retractor in and Durham pins in and placed the disc space [...] 04/09/2024 4:50 PM EDT documented in this [facility] Work Phone: [phone] 310-449210-23-2024 Nurse Note* Shantelle Pacheco RN - 04/09/2024 7:03 PM EDT Patient transferred from PACU to [id number] via stretcher in stable condition. Patient oriented to room, bed, and call light. Skin assessment witnessed by Brianda Dowling RN. Will continue to monitor. [facility] Nurse Note* Shantelle Pacheco RN - 04/09/2024 7:03 PM EDT Patient transferred from PACU to [id number] via stretcher in stable condition. Patient oriented to room, bed, and call light. Skin assessment witnessed by Brianda Dowling RN. Will continue to monitor. documented in this [facility] Work Phone: [phone]) 760-665410-23-2024 Hospital Note* Hospital Course - Aaron Gallo PA-C - 04/09/2024 5:04 PM EDT 63M h/p HTN, CAD, PAD s/p stent on ASA81, pontine glioma, tongue cancer p/w LUE radiculopathy, 04/09 s/p C5-7 ACDF 04/10 PT/OT DC recs no needs, post operative xray shows good position, Drain removed [facility] Work Phone: [phone] Note* Op Note - Chicho Bryan MD - 04/09/2024 2:30 PM EDT Fusion Spine Anterior Cervical and Discectomy C5-6, C6-7 (B) Operative Note Date: 04/09/2024 OR Location: [facility] OR Name: Jovani Melendez, : 1960, Age: 63 y.o., , Sex: male Diagnosis Pre-op Diagnosis * Cervical radiculopathy [M54.12] * Senile osteoporosis [M81.0] Post-op Diagnosis * Cervical radiculopathy [M54.12] * Senile osteoporosis [M81.0] Procedures Fusion Spine Anterior Cervical and Discectomy C5-6, C6-7 66797 - VA ARTHRD ANT INTERBODY DECOMPRESS CERVICAL BELW C2 VA ARTHRD ANT INTERBODY DECOMPRESS CERVICAL BELW C2 [23924] VA ARTHRD ANT INTERDY CERVCL BELW C2 EA ADDL NTRSPC [82325] VA ALLOGRAFT FOR SPINE SURGERY ONLY STRUCTURAL [] VA MICROSURG TQS REQ USE OPERATING MICROSCOPE [84777] Surgeons * Camille Harris - Primary Resident/Fellow/Other Harvest Contractor: Surgeons and Role: * Chicho Bryan MD [...] 85 mL Specimen: No specimens collected Staff: Pharmaceutical Officer: Derrell Scrub Person: Beverly Scrub Person: Shaina Drains and/or Catheters: Closed/Suction Drain 1 Neck Bulb 10 Fr. (Active) Urethral Catheter Double-lumen;Non-latex 16 Fr. (Active) Tourniquet Times: Implants: Implants Type Name Action Serial No. Spinal Hardware SCREW, DISTRACTION, 14 MM - [id number] Used, Not Implanted Spinal Hardware ALLOGRAFT, TRIAD LORDOTIC 6 X 11 X 14 - [id number] - [id number] Implanted [id number] Spinal Hardware ALLOGRAFT, TRIAD LORDOTIC 6 X 11 X 14 - [id number] - [id number] Implanted [id number] Spinal Hardware PLATE, ACP, 1.6V, 2 LEVEL, 34MM - [id number] Implanted Spinal Hardware SCREW, ACP, SELF DRILL, 3.5 X 17MM, VARIABLE - [id number] Implanted 3.5 X 19MM SCREW Implanted Findings: [...] then placed our self-retaining retractor in and Durham pins in and placed the disc space [...] Harris MD at 04/09/2024 4:50 PM EDT [facility] Work Phone: [phone] Attending History and physical note* Rojas Edwards [...] thin liquids Hypertension NPH (normal pressure hydrocephalus) ([facility]) PAD (peripheral artery disease) ([facility]) s/p stent (05/2023) on ASA 81mg Peripheral vascular disease ([facility]) Pontine lesion watchful waiting Pulmonary nodule Skin [...] as directed daily preoperatively 02/11/24 Rick Mckinney APRN-BIOINFORMATICS SOFTWARE ENGINEER chlorhexidine (Peridex) 0.12 % solution Swish and spit with 15ml of solution the night before and morning of surgery. Do not swallow. 02/11/24 Rick Mckinney APRN-BIOINFORMATICS SOFTWARE ENGINEER citalopram (CeleXA) 20 mg tablet Take 0.5 [...] Flowsheet Row Pre-Admission Testing from 02/11/2024 in [facility] Questionnaire Series Submission from 02/06/2024 in [facility] Care with Generic Provider Laura Can [...] or washing dishes? 2.7 filed at 02/11/2024 17324.7 filed at 02/06/2024 003 Can you do [...] Flowsheet Row Pre-Admission Testing from 02/11/2024 in [facility] DVT Score 11 filed at 02/11/2024 1506 BMI 30 or less filed at 02/11/2024 1506 RETIRED: Current Status Major surgery planned, lasting over 3 hours filed at 02/11/2024 1506 RETIRED: History Prior major surgery, Previous malignancy filed at 02/11/2024 1506 RETIRED: Age 60-75 years filed at 02/11/2024 1506 Modified Frailty Index Flowsheet Row Pre-Admission Testing from 02/11/2024 in [facility] Non-independent functional status (problems with dressing, bathing, personal grooming, or cooking) 0 filed at 02/11/2024 1505 History of diabetes mellitus 0 filed at 02/11/2024 1505 History of COPD 0 filed at 02/11/2024 1505 History of CHF No filed at 02/11/2024 1505 History of TN 0 filed at 02/11/2024 1505 History of [...] Flowsheet Row Pre-Admission Testing from 02/11/2024 in [facility] High-Risk Surgery (Intraperitoneal, Intrathoracic,Suprainguinal vascular) 0 filed at 02/11/2024 1505 History of ischemic heart disease (History of TN, History of positive exercuse test, Current chest [...] Flowsheet Row Pre-Admission Testing from 02/11/2024 in [facility] Smoking status 0 filed at 02/11/2024 1506 [...] Flowsheet Row Pre-Admission Testing from 03/26/2024 in [facility] Pre-Admission Testing from 02/11/2024 in [facility] Do you snore loudly? 0 filed at [...] Yellow, Dark-Yellow Appearance, Urine Clear Clear Specific [place], Urine 1.007 1.005 - 1.035 pH, Urine [...] Rate 63 BPM Atrial Rate 63 BPM VA Interval 268 ms QRS Duration 74 ms QT Interval 406 ms QTC Calculation(Bazett) 415 ms P Austin 58 degrees R Austin -3 degrees T Austin 18 degrees QRS Count 10 beats Q [...] given to patient. Neurosurgery: Camille Harris MD [facility] 01/03/24 seen for cervical radiculopathy. Neurosurgery: Addis Khan MD [facility] 11/05/23- [facility] seen for cervical stenosis of spine. 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 HEENT/Airway The patient has history of selective right neck dissection (II-V) and bilateral base of tongue/linguial tonsillar excision on 01/30/[address] 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 Currently with limited neck extension. No documented or reported history of airway difficulty. HemOnc: Memo Cole MD [facility] 11/02/23-[facility] seen for head and neck cancer. [...] Cardiology Evaluation Cardiology: Lilliam Cason MD [facility] (see media tab for last office note) [...] understanding ofpreoperative instructions. After Visit Summary given. [facility] Work Phone: [phone]) 902-448510-23-2024 History and physical note* Rojas Edwards MD [...] pressure hydrocephalus) (Multi) PAD (peripheral artery disease) ([facility]) s/p stent (05/2023) on ASA 81mg Peripheral vascular disease ([facility]) Pontine lesion watchful waiting Pulmonary nodule Skin [...] Flowsheet Row Pre-Admission Testing from 02/11/2024 in [facility] Questionnaire Series Submission from 02/06/2024 in [facility] with Generic Provider Laura Can you take [...] or washing dishes? 2.7 filed at 02/11/2024 25728.7 filed at 02/06/2024 003 Can you do [...] Flowsheet Row Pre-Admission Testing from 02/11/2024 in [facility] DVT Score 11 filed at 02/11/2024 1506 BMI 30 or less filed at 02/11/2024 1506 RETIRED: Current Status Major surgery planned, lasting over 3 hours filed at 02/11/2024 1506 RETIRED: History Prior major surgery, Previous malignancy filed at 02/11/2024 1506 RETIRED: Age 60-75 years filed at 02/11/2024 1506 Modified Frailty Index Flowsheet Row Pre-Admission Testing from 02/11/2024 in [facility] Non-independent functional status (problems with dressing, bathing, personal grooming, or cooking) 0 filed at 02/11/2024 1505 History of diabetes mellitus 0 filed at 02/11/2024 1505 History of COPD 0 filed at 02/11/2024 1505 History of CHF No filed at 02/11/2024 1505 History of TN 0 filed at 02/11/2024 1505 History of [...] Flowsheet Row Pre-Admission Testing from 02/11/2024 in [facility] High-Risk Surgery (Intraperitoneal, Intrathoracic,Suprainguinal vascular) 0 filed at 02/11/2024 1505 History of ischemic heart disease (History of TN, History of positive exercuse test, Current chest [...] Flowsheet Row Pre-Admission Testing from 02/11/2024 in [facility] Smoking status 0 filed at 02/11/2024 1506 [...] Flowsheet Row Pre-Admission Testing from 03/26/2024 in [facility] Pre-Admission Testing from 02/11/2024 in [facility] Do you snore loudly? 0 filed at [...] Yellow, Dark-Yellow Appearance, Urine Clear Clear Specific [place], Urine 1.007 1.005 - 1.035 pH, Urine [...] Rate 63 BPM Atrial Rate 63 BPM VA Interval 268 ms QRS Duration 74 ms QT Interval 406 ms QTC Calculation(Bazett) 415 ms P Austin 58 degrees R Austin -3 degrees T Austin 18 degrees QRS Count 10 beats Q [...] given to patient. Neurosurgery: Camille Harris MD [facility] 01/03/24 seen for cervical radiculopathy. Neurosurgery: Addis Khan MD [facility] 11/05/23- [facility] seen for cervical stenosis of spine. 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 HEENT/Airway The patient has history of selective right neck dissection (II-V) and bilateral base of tongue/linguial tonsillar excision on 01/30/[address] 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 Currently with limited neck extension. No documented or reported history of airway difficulty. HemOnc: Memo Cole MD [facility] 11/02/23-[facility] seen for head and neck cancer. [...] Cardiology Evaluation Cardiology: Lilliam Cason MD [facility] (see media tab for last office note) [...] After Visit Summary given. documented in this [facility] Work Phone: 1(338) 991-200010-15-2024 Evaluation note* Author Nida [facility] Authored April 01, 2024 1 0:01am The above note written by Leon Humphreys LPN, acting as human recorder, note dictated by Dr. Griselda Hastings. [facility] Work Phone: 1([phone]) 975-498008-15-2024 Evaluation note* Author Nida [facility] Authored January 31, 2024 10 :40am The above note written by Leon Humphreys LPN, acting as human recorder, note dictated by Dr. Griselda Hastings. Author [facility] Authored April 01, 2024 1 1:01am The above note written by Leon Humphreys LPN, acting as human recorder, note dictated by Dr. Griselda Hastings. [facility] Work Phone: 1(277) 402-301007-18-2024 History of Present illness Narrative* Camille Harris [...] bone stimulator after surgery. Camille Harris MD Script Worker of Neurosurgery [facility] [place] [facility] Neuroscience ICU Office: [phone] Scribe Attestation By signing my name below, I, Parisa Cabrera , Scribe attest that this documentation has been prepared under the direction and in the presence of MD Shirley. documented in this [facility] Work Phone: 1(565) 127-299006-27-2024 History of Present illness Narrative* Ignacia Jack MD - 12/13/2023 10:00 AM EDT Patient ID: Jovani Melendez is a 63 y.o. male. Referring Physician: Shimon Heaton PA-C [id number] [place] [address] Primary Care Provider: Griselda Hastings DO Subjective History of Present Ilness: 62 y.o. presents in neurosurgical consultation from [facility] for cervical stenosis.C/o neck pain and LUE pain, numbness and weakness down to hand for 2 years. SawNeurosurgeon at and has had 2 spinal taps with some improvement. Went to [facility] to be assessed for hydrocephal;us and was told he does not have hydrocephalus. He saw Dr. Lara at the [facility]. Also pain behind left eye. No [...] issues. 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 INTERVAL HISTORY (12/13/2023): Since the last visit, he continues to have severe neck pain, which isslowly getting worse, along with some muffled hearing on the left side. He tried going back to parttime work, but the activity made the neck pain much more severe. He saw a Neurosurgeon at [facility] about the cervical stenosis, but he was unwilling to consider surgery for the neck due to the pontine lesion. He has now been to see a Neurosurgery PA (Solomon Narayanan) at [facility] about the neck, who thought [...] ROS is as per documentation in the [facility]. Objective BSA: There is no [...] Nate Benavidez 12/13/2023 9:38 AM Dictation workstation: [id number] Impression 1. Abnormal increased T2 signal in [...] will undergo a new MRI brain at [facility]. -I spent > 40 minutes in face to face consultation to review and discuss the above; 50% of whichor more was dedicated to counseling. Ignacia Jack MD documented in this [facility] Work Phone: 1(235) 312-133506-27-2024 Instructions* Patient Instructions* Alondra Escamilla RN - 12/13/2023 10:00 AM EDT Your next appointment will be in 5 months. Please schedule your MRI prior to this visit. Please contact [phone] option 5 then option 2 with any questions or concerns. For any scheduling concerns please call [phone] option 1 documented [facility] Work Phone: 1(915) 361-904206-26-2024 History of Present illness Narrative* Solomon Narayanan PA-C - 12/12/2023 1:00 PM EDT Images from the original note were not included. [facility] [place] Department of Neurological Surgery New Patient Visit [...] as well as had multiple interventions via [place] [facility] including trial ablation which did provide short-term [...] Motor Strength: 4/5 left biceps, triceps, wrist, cooperative extension agent Muscle Bulk: Decreased muscle bulk left bicep [...] as well as had multiple interventions via [facility] including trial ablation which did [...] directly. Sincerely, RICH Hernandez, PAFranC Associate Physician Harvest Contractor, Neurosurgery Clinical Script Worker [facility] [place] [address] [place] [address] documented in this [facility] Work Phone: [phone]) [phone] Instructions* Patient Instructions* Memo Cole MD - 11/02/2023 10:13 AM EDT Scans and labs in 1 year RTC 1 week after documented in this encounterOhiohealth [facility]-17-2024 History of Present illness Narrative* Memo Cole MD - 11/02/2023 9:45 AM EDT Images from the original note were not included. NAME: Jovani Melendez [facility] NO.: [id number] DATE OF [facility]ICE: November [facility] 2023 [facility] Some elements in this clinic note that are critical to medical decision making have been carefully reviewed and included from a prior clinic note dated: November 03, 2022 ([place]). Referring Provider: Griselda Hastings, DO Additional Clinicians involved in Jovani Melendez's care: Dr Kimberly Nichole ENT, Dr. 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 10/05/2021 - MRI Brain: [facility] There is T2 and T2 flair hyperintense [...] respiratory bronchiolitis. 01/30/2019 - Neck dissection at [facility] Base of tongue did note a squamous [...] 2020: Doing well, still smokes, works at [employer]. Reviewed scans and there is no evidence [...] which included preparing to see the patient, [id number] patient care, completing clinical documentation, performing a medically appropriate examination, counseling and educating the patient/family/caregiver, ordering medications, tests, or p rocedures, independently interpreting results (not separately reported), communicating results to the patient/family/caregiver, and care coordination (not separately reported). Memo Cole MD, CPE Hematology and Oncology Services Provided at: [place], [place] Scribe Attestation: This note was scribed [...] under my direction. CC: Griselda Hastings, DO [address] [place] [id number] [address] Harris [facility] ENT. Dr. Nichole ENT Dr. bIarra ID surgery [facility]. documented in this encounterOhiohealth Arthur [facility]05-13-2024 Evaluation note* Author Shilpi Lantigua [facility] Authored October 29, 2023 10:32 am Sooner if needed, the ER if concerns,The above note written by Shilpi Lantigua LPN acting as human recorder, note dictated by Dr. Griselda Hastings [facility] Work Phone: 1(360) 421-284305-10-2024 History of Present illness Narrative* Curtis Da [...] PRESENTS WITH AN IMPLANTABLE OR ATTACHED CERTIFIED MEDICAL TRANSCRIPTIONIST: No RADIOLOGY DEPARTMENT: CT; Exam(s) Completed: Chest and Neck PERIPHERAL IV DATA: Site assessment: Clean,Dry and Intact, Site disposition Discontinued SIGNED BY: RT Craig(R) October 26, 2023 10:07 AM documented in this encounterOhiohealth [facility]04-19-2024 History of Present illness Narrative* Ignacia Jack MD - 10/05/2023 9:30 AM EDT Patient ID: Jovani Melendez is a 62 y.o. male. Referring Physician: No referring provider defined for this encounter. Primary Care Provider: Griselda Hastings DO Subjective History of Present Ilness: 62 y.o. presents in neurosurgical consultation from [facility] for cervical stenosis.C/o neck pain and LUE pain, numbness and weakness down to hand for 2 years. SawNeurosurgeon at and has had 2 spinal taps with some improvement. Went to [facility] to be assessed for hydrocephal;us and was told he does not have hydrocephalus. He saw Dr. Lara at the [facility]. Also pain behind left eye. No [...] issues. 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 Ignacia Jack MD documented in this encounter[facility] Work Phone: [phone]) 533-463804-19-2024 Instructions* Patient Instructions* Adriana Thomas RN - 10/05/2023 9:[address] Jack will present your case at [facility] next Sunday. Someone from the office will call you that day or about your plan. Please call us with any questions or concerns at [phone] opt. 5, opt. 2 For scheduling concerns please call [phone] option 1 documented in this encounterSelect [facility] Work Phone: 1(898) 751-889202-28-2024 Evaluation note* Author Curtis Covarrubias [facility] Authored August 15, 2023 5:19pm The above note written by Serafin Flood acting as human recorder, note dictated by Dr. Griselda Hastings . [facility] Work Phone: 1(971) 433-594902-28-2024 Evaluation note* Author Curtis Covarrubias [facility] Authored August 15, 2023 5:19pm The above note written by Serafin Flood acting as human recorder, note dictated by Dr. Griselda Hastings . Author Shilpi Lantigua [facility] Authored October 29, 2023 10:32 am Sooner if needed, the ER if concerns,The above note written by Shilpi Lantigua LPN acting as human recorder, note dictated by Dr. Griselda Hastings [facility] Work Phone: 1([phone]) 110-415901-15-2024 Evaluation note* Encounter Date Diagnosis Assessment Notes Treatment Notes Treatment Clinical Notes Jun, Acute cough (ICD-10 - R05.1) [place], flu, strep and rsv test was negative. I did prescribe the above medication and encouraged pt to increase fluid intake, throat lozenges or gargle with mouth wash as needed. Pt is to also take OTC pain medication and fever reducers as needed. Jun, Chest congestion (ICD-10 - R09.89) [place] covid, flu, strep and rsv test was [...] continue to follow with them as scheduled. [facility] 12-14-2023 Evaluation note* Encounter Date Diagnosis Assessment Notes Treatment Notes Treatment Clinical Notes May, PAD (peripheral artery disease) (ICD-10 - I73.9) Patient recently had angioplasty for occlusion of right iliac artery that was discovered by paid intern. He has been doing well since the [...] work before I provide him that consent. [facility] Other 12-13-2023 Evaluation note* Encounter Date Diagnosis [...] I will see him in 3 months. [facility] Other 11-28-2023 Evaluation note* Encounter Date Diagnosis [...] 3 months Apr, Lightheadedness (ICD-10 - R42) [facility] Other [id number] [facility]11-16-[facility] Evaluation note* Encounter Date Diagnosis [...] questions were addressed and consent was obtained. [facility] Other 11-14-2023 Evaluation note* Encounter Date Diagnosis [...] M54.2) The patient is now following with [facility]. He states he has an upcoming cervical epidural scheduled. The patient remains out of work on detention disability , he voices interest in returning to work soon. Apr, PAD (peripheral artery disease) (ICD-10 - I73.9) Arterial studies ordered by paid intern indicating peripheral artery disease. The patient does report lower extremity pain and heaviness and I recommend it would be beneficial to consult with a vascular specialist. The patient is in agreement, therefore a referral was initiated. A CTA has been ordered by neurologist , appointment pending [facility] scheduling. Apr, Hyperlipidemia [...] vocies understanding. We will continue to monitor. [facility] Other 10-26-2023 Evaluation note* Encounter Date Diagnosis Assessment Notes Treatment Notes Treatment Clinical Notes Mar, Claudication (ICD-10 - I73.9) [facility] Other 10-25-2023 Evaluation note* Encounter Date Diagnosis [...] 4 weeks Mar, Lightheadedness (ICD-10 - R42) [facility] 10-24-2023 Evaluation note* Encounter Date Diagnosis Assessment Notes Treatment Notes Treatment Clinical Notes Mar, Elevated blood pressure reading (ICD-10 - R03.0) [facility] Other 09-28-2023 Evaluation note* Encounter Date Diagnosis [...] infection. Feb, Burning sensation (ICD-10 - R20.8) [facility] Other 09-21-2023 Evaluation note* Encounter Date Diagnosis [...] index finger. We will continue to monitor. [facility] Other 07-13-2023 Hospital Discharge instructions Diet Plan/Instructions [...] * Discharge Physician: : Lima Joseph MD ([id number]) - Anesthesiology, Pain Management * Discharge Physician Phone: : [phone] [facility] [id number], [place] [address] Special Plan/Instructions for Discharge from 12/27/2022 10:26 AM: * Special Instructions : Spoke to patient Wound Care Instruction for Discharge from 12/27/2022 10:26 AM: * Special Instructions : Spoke to patient [employer] 06-20-2023 Evaluation note* Encounter Date Diagnosis Assessment [...] sent to the office to be completed. [facility] Other 05-12-2023 History of Present illness Narrative* [...] with PATIENT DISCHARGED TO: Ambulatory patient, left [place] department area. A Diagnostic radioactive procedure has taken place, with no further precautions necessary other than routine body substance precautions. More information regarding radiation safety can be found usingthis link: [email or web address] SIGNATURE: TABITHA Srinivasan) PATIENT NAME: Jovani Melendez DATE: October 27, 2022 TIME: 11:55 AM PAGER/CONTACT #: documented in this encounterOhiohealth [facility]04-07-2023 History of Present illness Narrative* TABITHA [...] 2022 TIME: 2:39 PM documented in this encounterOhiohealth Arthur [facility]04-05-2023 Miscellaneous Notes* Telephone Encounter - Akash [...] return call ? Yes documented in this encounterOhiohealth Arthur G.[facility]. [facility]03-29-2023 Instructions* Patient Instructions* Kelly Perez PA-C [...] perform on same dariusz. documented in this encounterOhiohealth Arthur G.[facility]. [facility]03-29-2023 Nurse Note* Antonia Tripathi MA - 09/13/2022 10:55 AM EDT Additional intake questions: Has the patient had fever, nausea, vomiting, diarrhea, constipation, fatigue for > 1 week? Yes, diarrhea ( 3 times in last 24 hours), fatigue, and Provider Notified Does the patient have a decreased appetite? No Does patient want to see a Ict Managers? No (yes to any of above refer [...] By: Antonia Tripathi MA documented in this encounterOhiohealth Arthur G.[facility]. [facility], [facility] Center03-29-2023 History of Present illness Narrative* Kelly Perez PA-C - 09/13/2022 10:44 AM EDT This note was created using Docracyriter. Subjective Jovani Melendez is a 61 year [...] or pronator drift. Coordination: Romberg sign negative. Wjkroj-Tttn-Ejxaao Test normal. Gait: Gait abnormal. Comments: Slightly [...] which included preparing to see the patient, [id number] patient care, completing clinical documentation, obtaining and/or reviewing separately obtained history, performing a medically appropriate examination, counseling and educating the pat ient/family/caregiver, ordering medications, tests, or procedures, communicating with other HCPs (not separately reported), independently interpreting results (not separately reported), communicatingresults to the patient/family/caregiver, and care coordination (not separately reported). documented in this encounterOhiohealth Arthur G.[facility]. [facility] Center03-16-2023 Evaluation note* Encounter Date Diagnosis Assessment [...] her mid twenties. He will see the FAMILY SUPPORT SPECIALIST at Dr. Cadena's office today, and will see the [facility] 09/13/22. I do feel pt needs his FMLA extended until 12/16/22. I encouraged him to continue to follow with these doctors, and we will continue to monitor. [facility] Other 02-14-2023 Evaluation note* Encounter Date Diagnosis [...] pain medication and fever reducers as needed. [facility] Other 01-11-2023 Evaluation note* Encounter Date Diagnosis Assessment Notes Treatment Notes Treatment Clinical Notes Jun, Other complicated headache syndrome (ICD-10 - G44.59) [facility] Other 12-09-2022 Evaluation note* Encounter Date Diagnosis [...] check on him again in 1 month. [facility] Other 10-30-2022 Hospital Discharge instructions Additional Instructions [...] week to see how you are doing. [facility] Work Phone: [phone]) [phone] Miscellaneous Notes* Telephone Encounter - Memo Cole MD - 03/27/2022 3:54 PM EDT Good with me * Telephone Encounter - Asya Reynolds RN - 03/27/2022 2:17 PM EDT Informed patient of your recommendations. He states that he is seeing neurology in [place] and they do not feel he needs [...] the weekend about an appointment with a [facility] neurosurgeon. He has not seen you since 10/2021. He states st that time you did not see the need for a neurosurgeon as his tumor wastoo small. Now he all of the sudden has an appointment with this [facility] neurosurgeon and is confused. Can you review and advise as to this appointment with the neurosurgeon. Asya Reynolds RN documented in this encounterOhiohealth Arthur G.[facility]. [facility], [facility] Center09-29-2022 Miscellaneous Notes* Telephone Encounter - Pamela NascimentoBAILEY.BIOINFORMATICS SOFTWARE ENGINEER - 03/16/2022 2:51 PM EDT Time Frame: Next available Provider: Intra-axial neurosurgeon & Neuro-Oncology (same day) Referring: Memo Cole MD Please instruct patient to hand carry/ upload images prior to appt Dx: Low grade glioma Patient: Jovani Melendez Address: Jovani Melendez [id number] [place], [place] [id number] Per Triage: Jovani Melendez is a 61 year old male that requests evaluation of previously diagnosed possible low grade glioma. Patient expectations: Second opinion Tumor Specifics: Location: brain Previous Evaluations: MRI w/wo contrast (10/05/21): 10/05/2021 MRI Brain [facility] Impression: 1. There [...] Dumont - 03/16/2022 12:26 PM EDT MD Meom Gomez MD Future Order Information Expires 10/13/22 Associated Diagnoses Glioma of brain (HCC) [C71.9] Reason for Exam Priority: Routine Dx: Glioma of brain (HCC) [C71.9 (ICD-10-CM)] Order Questions Question Answer [facility] Brain Tumor [facility] Epic access? Yes documented in this encounterOhiohealth Arthur G.[facility]. [facility] Center09-29-2022 Evaluation note* Encounter Date Diagnosis Assessment [...] see if this gives him some relief [facility] Other 08-15-2022 Evaluation note* Encounter Date Diagnosis [...] - G93.9) Patient had another MRI at [facility]. We are awaiting for the results to [...] again next week. We are awaiting for [facility] to fax over the consult and MRI results. Jan, Neck pain (ICD-10 - M54.2) The patients neck pain is persistant but the headache has improved with a medication change. Discussed with Dr. Cadena his persistent neck pain, may need MRI of his neck and/or EMG. Due to his multiple other medications did hold off on any pain medications. [facility] Other 07-11-2022 Evaluation note* Encounter Date Diagnosis [...] blood pressure was elevated upon check in. [facility] Other 06-20-2022 Evaluation note* Encounter Date Diagnosis [...] rule out other causes of his symptoms. [facility] Other 05-24-2022 Evaluation note* Encounter Date Diagnosis [...] will complete the necessary medical disability forms. [facility] Other 05-17-2022 Evaluation note* Encounter Date Diagnosis Assessment Notes Treatment Notes Treatment Clinical Notes October, Glioma of brain (ICD-10 - C71.9) Patient has consulted neurosurgeon, Dr. Narayan, and he is now referring on to Dr. [facility] for 2[facility] opinion. Reviewed consult note [...] this medication. Will continue to follow up [facility] Other 05-12-2022 History of Present illness Narrative* Memo Cole MD - 10/27/2021 5:05 PM EDT Images from the original note were not included. NAME: Jovani Melendez CLINIC NO.: [id number] DATE OF SERVICE: October 27, 2021 Some elements in this clinic note that are critical to medical decision making have been carefully reviewed and included from a prior clinic note dated: October 13, 2021 Referring Provider: Griselda Hastings, DO Additional Clinicians involved in Jovani Melendez's care: Dr Kimberly Nichole ENT, Dr. Ibarra CT surgery [facility] AMBULATORY TELEPHONE VISIT Jovani Melendez has [...] 1.8 mm of invasive disease (Stage I, [id number], HPV+ oropharyngeal SCC).resected T1 N1 base of [...] 01/30/19 He had a neck dissection at [facility] HPI: Updated Visit, October 27, 2021: Telephone [...] COMP METABOLIC PANEL Memo Cole MD, CPE [facility] [place], [place] CC: Griselda Hastings, DO [address] [phone] [address] Harris [facility] ENT. Dr. Nichole ENT Dr. Ibarra ID surgery [facility]. documented in this encounterOhiohealth Arthur G.[facility]05-09-2022 Evaluation note* Encounter Date Diagnosis Assessment [...] him on to see Dr. Jonny Vigil. [facility] [employer] Other 05-04-2022 Miscellaneous Notes* Telephone Encounter - Haily Jovel [facility] - 10/19/2021 12:56 PM EDT Called [facility] spoke with Leslee. She states they have received patient records/referral and have patient scheduled to see Dr Narayan on 10/24. Haily Issa * Telephone Encounter - Asya Gramajo [facility] - 10/18/2021 10:34 AM EDT Records faxed. * Telephone Encounter - Haily Jovel [facility] - 10/13/2021 12:24 PM EDT Noelle: Information ready for you. Haily Issa * Telephone Encounter - Antonia Mcguire - 10/13/2021 10:33 AM EDT Referral to neurosurgery - Dr. Narayan or [facility] Noelle/Layo: Can you please refer patient and follow up? Thanks! Antonia Mcguire documented in this encounterOhiohealth Arthur G.[facility]. [facility]04-28-2022 History of Present illness Narrative* Memo Cole MD - 10/13/2021 10:19 AM EDT Images from the original note were not included. NAME: Jovani Melendez [facility] NO.: [id number] DATE OF SERVICE: October 13, 2021 Some elements in this clinic note that are critical to medical decision making have been carefully reviewed and included from a prior clinic note dated:October 14, 2020 Referring Provider: Griselda Hastings, DO Additional Clinicians involved in Jovani Melendez's care: Dr Kimberly Nichole ENT, Dr. Ibarra ID surgery [facility] CC: Head and neck cancer ASSESSMENT: [...] 1.8 mm of invasive disease (Stage I, [id number], HPV+ oropharyngeal SCC).resected T1 N1 base of [...] 01/30/19 He had a neck dissection at [facility] HPI: Updated Visit, October 13, 2021: 1 [...] 2020: Doing well, still smokes, works at [employer]. Reviewed scans and there is no evidence [...] adenopathy is identified. 4. 10/05/2021 MRI Brain [facility] Impression: 1. There [...] and neck (HCC) Memo Cole MD, CPE [place], [place] CC: Griselda Hastings, DO [address] [phone] [address] [facility]. [facility]. Nichole ENT Dr. Ibarra ID surgery [facility]. documented in this encounterOhiohealth Arthur G.[facility]04-21-2022 Miscellaneous Notes* Telephone Encounter - Memo [...] steps. Asya Kumar RN documented in this encounterOhiohealth Arthur G.[facility]. [facility]04-21-2022 History of Present illness Narrative* Marilyn Hernandez [...] 06, 2021 8:07 AM documented in this encounterOhiohealth Arthur G.[facility]. [facility]04-04-2022 Evaluation note* Encounter Date Diagnosis Assessment [...] to continue with monitoring diet and exercise. [facility] Other 03-28-2022 Evaluation note* Encounter Date Diagnosis Assessment Notes Treatment Notes Treatment Clinical Notes Aug, Anxiety and depression (ICD-10 - F41.8) [facility] Other 01-13-2022 Evaluation note* Encounter Date Diagnosis Assessment Notes Treatment Notes Treatment Clinical Notes Jun, Sinusitis (ICD-10 - J32.9) I did prescribe the above medications and work note provided. [facility] Other 01-12-2022 Evaluation note* Encounter Date Diagnosis Assessment Notes Treatment Notes Treatment Clinical Notes Jun, Sinus pressure (ICD-10 - J34.89) Patient advised of negative results. Encouraged him to call if symtpoms persist or worsen, he verbalized understanding. [facility] Other 11-02-2021 Evaluation note* Encounter Date Diagnosis Assessment Notes Treatment Notes Treatment Clinical Notes Apr, Sinus congestion (ICD-10 - R09.81) [facility] Other 10-28-2021 Evaluation note* Encounter Date Diagnosis [...] Encouraged patient to continue with their efforts. [facility] Other 12-01-2016 History general Narrative - Reported* [...] surgery 02/04 19 Hospitalization History see above [facility] Other 12-01-2016 History general Narrative - Reported* [...] 19 Surgical History [facility] 11/07/2021 Hospitalization History see above [facility] Other 12-01-2016 History general Narrative - Reported* [...] 19 Surgical History Spinal tap at [facility] 11/07/2021 Hospitalization History see above [facility] Other 12-01-2016 History general Narrative - Reported* [...] 01/2019 Surgical History Spinal tap at [facility] 11/07/2021 Hospitalization History see above [facility] Other 12-01-2016 History general Narrative - Reported* [...] 01/2019 Surgical History Spinal tap at [facility] 11/07/2021 Surgical History LP at [facility] 08/2022 Hospitalization History see above [facility] Other 12-01-2016 History general Narrative - Reported* [...] 01/2019 Surgical History Spinal tap at [facility] 11/07/2021 Surgical History LP at [facility] 08/2022 Hospitalization History see above [facility] Other 12-01-2016 History general Narrative - Reported* [...] 01/2019 Surgical History Spinal tap at [facility] 11/07/2021 Surgical History LP at [facility] 08/2022 Surgical History angioplasty right iliac artery 04/2023 Hospitalization History see above [facility] Other 05-19-2009 History of Present illness Narrative* [...] He saw Dr. Ba a neurologist in [facility]. * He describes his vision as seeing 1-/2 . He describes this does not seem quite to but finding a time lab between moving his eyes and having the visual change. [facility] Work Phone: chief complaint+Reason for visit Narrative* Chief Complaint 2 month 2 month f/u Reason for Visit Cervical spondylosis History of COVID-19 Nicotine dependence with current use SCC (squamous cell carcinoma) Nicotine dependence with current use Osteoarthritis cervical spine [facility] Work Phone: Clinical Notes [facility] [place] + Plan note [facility] Evaluation noteNo Assessments Information Available [facility]* Diagnosis Glioma of brain (HCC)- Primary Malignant neoplasm of brain, unspecified site Lung nodules Other nonspecific abnormal finding of lung field 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 CenterEvaluchristiana hospital noteNo InformationNort [employer] Other Evaluation noteNo assessment information available [facility] Work Phone: Evaluation note* Diagnosis Onset Date Resolution Status Migraine acute [facility] Work Phone: Evaluation note* Diagnosis NPH (normal pressure hydrocephalus) (HCC)- Primary Idiopathic normal pressure hydrocephalus (INPH) documented in this encounter [facility] note* Diagnosis 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HCC)- Primary NPH (normal pressure hydrocephalus) (HCC) Idiopathic normal pressure hydrocephalus (INPH) documented in this encounter [facility] note* Diagnosis 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HCC) NPH (normal pressure hydrocephalus) (HCC) Idiopathic normal pressure hydrocephalus (INPH) documented in this encounter 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 Griselda Hastings. 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* Diagnosis Cervical radiculopathy- Primary Brachial neuritis or radiculitis nos Cervical radiculopathy Brachial neuritis or radiculitis nos Senile osteoporosis Senile osteoporosis documented in this encounter [facility] Work Phone: [phone] note* Diagnosis Cervical radiculopathy- Primary Brachial neuritis or radiculitis nos Status post cervical spinal fusion Arthrodesis status Acute postoperative pain Other acute postoperative pain Muscle spasms of neck documented in this encounter [facility] Work Phone: [phone] note* Diagnosis Other nerve root and plexus disorders- Primary Cervical paraspinal muscle spasm Spasm of muscle Cervical stenosis of spinal canal Spinal stenosis in cervical region [facility]* Diagnosis Cervical radiculopathy- Primary Brachial neuritis or radiculitis nos Occipital neuralgia of left side Balance problem Abnormality of gait documented in this encounter [facility] Work Phone: [phone] note* 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 [facility] Work Phone: Evaluation note* 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 [facility] Work Phone: Evaluation note* Diagnosis Cervical radiculopathy- Primary Brachial neuritis or radiculitis nos Senile osteoporosis documented in this encounter [facility] Work Phone: Evaluation note* Diagnosis Cervical radiculopathy Brachial neuritis or radiculitis nos Senile osteoporosis Cervical radiculopathy Brachial neuritis or radiculitis nos Senile osteoporosis Cervical radiculopathy Brachial neuritis or radiculitis nos Senile osteoporosis documented in this encounter [facility] Work Phone: [phone] note* Diagnosis Cervical radiculopathy Brachial neuritis or radiculitis nos Senile osteoporosis Cervical radiculopathy Brachial neuritis or radiculitis nos Cervical radiculopathy Brachial neuritis or radiculitis nos Senile osteoporosis documented in this encounter [facility] Work Phone: [phone] note* Diagnosis Cervical radiculopathy Brachial neuritis or radiculitis nos Senile osteoporosis Cervical radiculopathy Brachial neuritis or radiculitis nos Cervical radiculopathy Brachial neuritis or radiculitis nos Senile osteoporosis documented in this encounter [facility] Work Phone: Evaluation note* Diagnosis Status post cervical spinal fusion- Primary Arthrodesis status documented in this encounter [facility] Work Phone: Evaluation note* Diagnosis Nerve root and plexus disorder, unspecified- Primary documented in this encounter [facility] Diagnosis Nerve root and plexus disorder, unspecified- Primary documented in this encounter [facility]* Diagnosis Nerve root and plexus disorder, unspecified- Primary documented in this encounter [facility]* Diagnosis Status post cervical spinal fusion- Primary Arthrodesis status documented in this encounter 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 Diagnosis Nerve root and plexus disorder, unspecified- Primary Acute pain of left shoulder documented in this encounter [facility] Diagnosis Melanocytic nevus of trunk- Primary Benign neoplasm of skin of trunk, except scrotum Seborrheic keratosis Inflamed seborrheic keratosis Actinic keratosis Capillary angioma Nevus, non-neoplastic History of SCC (squamous cell carcinoma) of skin Personal history of other malignant neoplasm of skin documented in this encounter [facility] Diagnosis Nerve root and plexus disorder, unspecified- Primary Acute pain of left shoulder documented in this encounter [facility] Dis[facility] instructions Additional Instructions Obtain Elsy pot and perform [facility] Discharge instructions Additional Instructions Please return to emergency department for any new or worrisome symptoms including any chest pain, shortness of breath, vomiting, fever. Take all antibiotics even if you start feeling better.[facility] Work Phone: Hospital Discharge instructions Additional Instructions Push fluids Zofran for nausea vomiting Follow-up with the GI specialist as discussed for possible colonoscopy Return here if any problems persist or worsen If you are able to collect a urine specimen take it to the lab.[facility] Work Phone: reason for referral (narrative)* Diagnostic [...] SCAN OF CHEST CONTRAST Memo Cole MD [address] [place] [address] [place] [address] [place] [address] Referral ID Status Reason Start Date Expiration Date V isits Requested Visits Authorized [id number] Closed Auto-Generate d Referral 09/23/2021 11/22/2021 1 [...] CAT OF NECK TISSUE Memo Cole MD [address] [place] [address] [place] [address] Ct Imaging [facility] Referral ID Status Reason Start Date Expiration Date V isits Requested Visits Authorized [id number] Closed Auto-Generate d Referral 09/23/2021 11/22/2021 1 1 [facility] (narrative)No reason for referral [facility] [place] for visit Narrative* Auth/Cert Specialty Diagnoses / Procedures Referred By Contac t Referred To Contact Diagnoses Cervical radiculopathy Senile osteoporosis Cervical radiculopathy [M54.12] Senile osteoporosis [M81.0] Procedures VA ARTHRD ANT INTERBODY DECOMPRESS CERVICAL BELW C2 VA ARTHRD ANT INTERBODY DECOMPRESS CERVICAL BELW C2 VA ARTHRD ANT INTERDY CERVCL BELW C2 EA ADDL NTRSPC VA ALLOGRAFT FOR SPINE SURGERY ONLY STRUCTURAL VA MICROSURG TQS REQ USE OPERATING MICROSCOPE Fusion Spine Anterior Cervical and Discectomy C5-6, C6-7 Camille Harris MD [address] [facility], [facility] [address] [place] [address] Phone: tel: fax: [facility] [place] [address] [place] [address] fax: Referral ID Status Reason Start Date Expiration Date Visits Re quested Visits Authorized [id number] 1 1 [facility] Work Phone: Reason for visit Narrative* Injection (Routine) - Closed Specialty Diagnoses / Procedures Referred By Roverto moraes Referred To Contact Neurology Diagnoses Acute pain of left shoulder Procedures VA OFFICE/OUTPATIENT [facility] HIGH MDM 60 MINUTES Elvi Cadena MD [address] [facility] [address] [place] [address] Phone: tel: fax: Elvi Cadena MD [address] [place] [address] Phone: tel: fax: Referral ID Status Reason Start Date Expiration Date V isits Requested Visits Authorized [id number] Closed Perform Procedure 11/12/2024 05/18/2025 1 1 [...] Documents on File Type Date Recorded Patient [employer] Living Will 10/05/2023 9:39 AM Documents on File Type Date Recorded Patient [employer] Living Will 10/05/2023 9:39 AM [...] brain (HCC) Procedures CONSULT TO NEUROSURGERY OFFICE/OUTPATIENT [facility] MDM 60-74 MINUTES Memo Cole MD [address] [place] [address] [place] [address] Referral ID Status Reason Start Date Expiration Date Visits Requested Visits Authorized [id number] Authorized PCP Requested Referral 10/13/2021 10/13/2022 1 1 Specialty Diagnoses / Procedures Referred By Contac t Referred To Contact CT IMAGING Diagnoses Lung nodules Procedures CT CHEST W IVCON DIAGNOSTIC COMPUTED TOMOGRAPHY THORAX W/CONTRAST Memo Cole MD [address] [place] [address] [place] [address] Ct Imaging Referral ID Status Reason Start Date Expiration Date Visits Requested Visits Authorized [id number] Pending Review Auto-Generat ed Referral 10/30/2022 11/29/2022 1 1 Specialty Diagnoses / Procedures Referred By Contac t Referred To Contact CT IMAGING Diagnoses Malignant neoplasm of head, face and neck (HCC) Procedures CT NECK SOFT TISSUE W IVCON CT SOFT TISSUE NECK W/CONTRAST MATERIAL Memo Cole MD [address] [place] [address] [place] [address] Ct Imaging Referral ID Status Reason Start Date Expiration Date Visits Requested Visits Authorized [id number] Pending Review Auto-Generat ed Referral 10/30/2022 11/29/2022 1 1 Reason *FU 10/31 Evaluate and Treat Brainstem Lesion 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) Referral Organization [facility] urosurgery Referring Provider First Name Sheng Referring Provider Last Name Wyatt Referring Provider Specialty Neurosurger y Referred Organization [facility] Referred Provider Jonny Vigil Referred Address [address] [facility] [place], [place],[address] Referred Provider Specialty Neurological Surgery Referral Priority Routine General Notes Fore, Linnea M 022 02:09:54 PM >Received and fax referral today Reason consult and treat (p t is willing to see him in [place], if not then will see at [facility]) 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) Diagnosis 2 Cervical pain (neck) (M54.2) Diagnosis 3 Pressure in head (R5 1.9) Referral Organization [facility] [place] Referring Provider First Name Griselda Referring Provider Last Name Darling Referring Provider Specialty Family Prac henny Referred Organization [facility] Referred Provider Elvi Cadena Referred Address [address] [place] [phone] Referral Priority Routine Specialty Diagnoses / Procedures Referred By Contac t Referred To Contact MR IMAGING Diagnoses 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HCC) Procedures MRI BRAIN WO/W IVCON MRI BRAIN BRAIN STEM W/O W/CONTRAST MATERIAL Kelly Perez PA-C [address] [place] [address] Mr Imaging Referral ID Status Reason Start Date Expiration Date Visits Requested Visits Authorized [id number] Authorized Auto-Generat ed Referral 09/20/2022 10/20/2023 1 1 Referral ID Status Reason Start Date Expiration Date V isits Requested Visits Authorized [id number] Closed Auto-Generate d Referral 09/20/2022 10/20/2023 1 1 Reason pt requesting n ot Dr. Verma, but can see other providers from that group evaluate and treat tinnitus and balance issues Diagnosis 1 Tinnitus of both ear s (H93.13) Diagnosis 2 Balance disorder (R2 6.89) Referral Organization [facility] Cardiology Referring Provider First Name Lilliam Referring Provider Last Name Kamla Referring Provider Specialty Cardiovascu lar Disease Referred Organization [facility] Referred Provider Manuela Ballesteros Referred Address ,[place], [place],[address] Referred Provider Specialty Ear, Nose an d Throat Referral Priority Routine General Notes Yessica Brown 12:40:36 PM >received today, pt has medicaid insurance, will send to Dr. Ballesteros, attachments made, waiting for notes to be locked Reason consult and treat Diagnosis 1 PAD (peripheral arnie ry disease) (I73.9) Referral Organization [facility] [place] Referring Provider First Name Griselda Referring Provider Last Name Darling Referring Provider Specialty Family Prac henny Referred Organization [facility] Vascular Surge ry Referred Provider Filipe Hess Referred Address [address] [place] [address],[place] [address],[place], [place],[address] Referred Provider Specialty Vascular Abdirahman yvon Referral Priority Routine General Notes Nick Alvaradon M 023 11:58:24 AM >Received today and sent P2P Specialty Diagnoses / Procedures Referred By Roverto moraes Referred To Contact CT IMAGING Diagnoses 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) Procedures CT CHEST W IVCON DIAGNOSTIC COMPUTED TOMOGRAPHY THORAX W/CONTRAST Memo Cole MD [address] [place] [address] [place] [address] [place] [address] Referral ID Status Reason Start Date Expiration Date Visits Requested Visits Authorized [id number] Authorized Auto-Generat ed Referral 11/01/2024 12/01/2024 1 1 Specialty Diagnoses / Procedures Referred By Contac t Referred To Contact CT IMAGING Diagnoses 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) Procedures CT NECK SOFT TISSUE W IVCON CT SOFT TISSUE NECK W/CONTRAST MATERIAL Memo Cole MD [address] [place] [address] [address] [place], [facility] [place] [address] Referral ID Status Reason Start Date Expiration Date Visits Requested Visits Authorized [id number] Authorized Auto-Generat ed Referral 11/01/2024 12/01/2024 1 1 Referral ID Status Reason Start Date Expiration Date V isits Requested Visits Authorized [id number] Closed Auto-Generate d Referral 10/26/2023 06/17/2024 1 1 Referral ID Status Reason Start Date Expiration Date V isits Requested Visits Authorized [id number] Closed Auto-Generate d Referral 10/26/2023 06/17/2024 1 1 Specialty Diagnoses / Procedures Referred By Contac t Referred To Contact CT IMAGING Diagnoses Lung nodules Procedures CT CHEST W IVCON DIAGNOSTIC COMPUTED TOMOGRAPHY THORAX W/CONTRAST Memo Cole MD [address] [place] [address] [place] [address] Ct Imaging [facility] Referral ID Status Reason Start Date Expiration Date V isits Requested Visits Authorized [id number] Closed Auto-Generate d Referral 10/30/2022 11/29/2022 1 1 Specialty Diagnoses / Procedures Referred By Contac t Referred To Contact CT IMAGING Diagnoses Malignant neoplasm of head, face and neck (HCC) Procedures CT NECK SOFT TISSUE W IVCON CT SOFT TISSUE NECK W/CONTRAST MATERIAL Memo Cole MD [address] [place], [place] [address] [address] [place] [address] Referral ID Status Reason Start Date Expiration Date V isits Requested Visits Authorized [id number] Closed Auto-Generate d Referral 10/30/2022 11/29/2022 1 1 Specialty Diagnoses / Procedures Referred By Contac t Referred To Contact Radiology 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 [place] [address] [place] [address] Referral ID Status Reason Start Date Expiration Date Visits Requested Visits Authorized [id number] Pending Review Perform Procedure 12/13/2023 12/12/2024 1 1 Specialty Diagnoses / Procedures Referred By Contac t Referred To Contact Radiology 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 tumor perfusion protocol w and wo IV contrast Shimon Heaton PA-C [address] [place] [address] Referral ID Status Reason Start Date Expiration Date Visits Requested Visits Authorized [id number] Authorized Perform Procedure 10/24/2023 10/23/2024 1 1 Specialty Diagnoses / Procedures Referred By Contac t Referred To Contact Radiology Diagnoses Cervical radiculopathy Procedures XR cervical spine complete 6+ views Camille Harris MD [address] [facility], [address] [address] Referral ID Status Reason Start Date Expiration Date Visits Requested Visits Authorized [id number] Authorized Perform Procedure 01/03/2024 01/02/2025 1 1 Specialty Diagnoses / Procedures Referred By Contac t Referred To Contact Radiology Diagnoses Senile osteoporosis Procedures XR DEXA bone density axial skeleton w VFA Camille Harris MD [address] [facility], [address] [address] Referral ID Status Reason Start Date Expiration Date Visits Requested Visits Authorized [id number] Pending Review Perform Procedure 01/03/2024 01/02/2025 1 1 Specialty Diagnoses / Procedures Referred By Contac t Referred To Contact Diagnoses Cervical radiculopathy Senile osteoporosis Procedures ECG 12 lead Camille Harris MD [address] [facility], [address] [address] Referral ID Status Reason Start Date Expiration Date V isits Requested Visits Authorized [id number] Authorized 01/09/2024 01/08/2025 1 1 Specialty Diagnoses / Procedures Referred By Roverto moraes Referred To Contact Radiology Diagnoses Cervical radiculopathy Procedures XR DEXA bone density Camille Harris MD [address] [facility], [address] [place] [address] Referral ID Status Reason Start Date Expiration Date Visits Requested Visits Authorized [id number] Authorized Perform Procedure 01/08/2024 01/07/2025 1 1 [...] content) DATE CREATED AUTHOR 08/01/2019 [facility] DATE CREATED AUTHOR AUTHOR'S ORGANIZ ATION 11/05/2021 [employer] DATE CREATED AUTHOR AUTHOR'S ORGANIZ ATION 01/19/2022 [facility] DATE CREATED AUTHOR AUTHOR'S ORGANIZ ATION 10/02/2022 [facility] DATE CREATED AUTHOR AUTHOR'S ORGANIZ ATION 12/25/2022 [facility] DATE CREATED AUTHOR AUTHOR'S ORGANIZ ATION 08/03/2023 [facility] DATE CREATED AUTHOR AUTHOR'S ORGANIZ ATION 02/13/2024 [facility] DATE CREATED AUTHOR AUTHOR'S ORGANIZ ATION 09/28/2024 [facility] DATE CREATED AUTHOR AUTHOR'S ORGANIZ ATION 10/27/2024 [facility] DATE CREATED AUTHOR AUTHOR'S ORGANIZ ATION 11/13/2024 [facility] DATE CREATED AUTHOR AUTHOR'S ORGANIZ ATION 12/29/2024 [facility] DATE CREATED AUTHOR AUTHOR'S ORGANIZ ATION 01/01/[address] [facility] DATE CREATED AUTHOR AUTHOR'S ORGANIZ ATION 01/03/2025 [facility] DATE CREATED AUTHOR AUTHOR'S SUDEEP DIXON 02/06/2025 [facility] EPIC Source Comments (unrecognize d section and content) In the event this informatio n is protected by the Federal Confidentiality of Alcohol and Drug Abuse Patient Records regulations: The Federal rules restrict any use of the information to criminally investigate or prosecute any alcohol or drug abuse patient.[facility] Center[facility] the event this information is protected by the Federal Confidentiality of Alcohol and Drug Abuse Patient Records regulations: The Federal rules restrict any use of the information to criminally investigate or prosecute any alcohol or drug abuse patient.[facility] Center[facility] the event this information is protected by the Federal Confidentiality of Alcohol and Drug Abuse Patient Records regulations: The Federal rules restrict any use of the information to criminally investigate or prosecute any alcohol or drug abuse patient.[facility] CenterIn the event this information is protected by the Federal Confidentiality of Alcohol and Drug Abuse Patient Records regulations: The Federal rules restrict any use of the information to criminally investigate or prosecute any alcohol or drug abuse patient.[facility] CenterIn the event this information is protected by the Federal Confidentiality of Alcohol and Drug Abuse Patient Records regulations: The Federal rules restrict any use of the information to criminally investigate or prosecute any alcohol or drug abuse patient.[facility] Center[facility] the event this information is protected by the Federal Confidentiality of Alcohol and Drug Abuse Patient Records regulations: The Federal rules restrict any use of the information to criminally investigate or prosecute any alcohol or drug abuse patient.[facility] CenterIn the event this information is protected by the Federal Confidentiality of Alcohol and Drug Abuse Patient Records regulations: The Federal rules restrict any use of the information to criminally investigate or prosecute any alcohol or drug abuse patient.[facility] CenterIn the event this information is protected by the Federal Confidentiality of Alcohol and Drug Abuse Patient Records regulations: The Federal rules restrict any use of the information to criminally investigate or prosecute any alcohol or drug abuse patient.[facility] CenterIn the event this information is protected by the Federal Confidentiality of Alcohol and Drug Abuse Patient Records regulations: The Federal rules restrict any use of the information to criminally investigate or prosecute any alcohol or drug abuse patient.[facility] CenterIn the event this information is protected by the Federal Confidentiality of Alcohol and Drug Abuse Patient Records regulations: The Federal rules restrict any use of the information to criminally investigate or prosecute any alcohol or drug abuse patient.[facility] CenterIn the event this information is protected by the Federal Confidentiality of Alcohol and Drug Abuse Patient Records regulations: The Federal rules restrict any use of the information to criminally investigate or prosecute any alcohol or drug abuse patient.[facility] CenterIn the event this information is protected by the Federal Confidentiality of Alcohol and Drug Abuse Patient Records regulations: The Federal rules restrict any use of the information to criminally investigate or prosecute any alcohol or drug abuse patient.[facility] CenterIn the event this information is protected by the Federal Confidentiality of Alcohol and Drug Abuse Patient Records regulations: The Federal rules restrict any use of the information to criminally investigate or prosecute any alcohol or drug abuse patient.[facility] CenterIn the event this information is protected by the Federal Confidentiality of Alcohol and Drug Abuse Patient Records regulations: The Federal rules restrict any use of the information to criminally investigate or prosecute any alcohol or drug abuse patient.[facility] CenterIn the event this information is protected by the Federal Confidentiality of Alcohol and Drug Abuse Patient Records regulations: The Federal rules restrict any use of the information to criminally investigate or prosecute any alcohol or drug abuse patient.[facility] Reason for Visit (unrecogniz ed section and content) Reason Comments Results Reason Comments Head and Neck Cancer Specialty Diagnoses / Procedures Referred By Contac t Referred To Contact Hematology/Oncology / HEMATOLOGY/ONCOLOGY Diagnoses Follow-up examination 1 year follow up LABS WITH CT Procedures EST PATIENT Memo Cole MD [address] [place] [address] [place] [address] Memo Cole MD [address] [place] [address] [place] [address] Referral ID Status Reason Start Date Expiration Date Visits Re quested Visits Authorized [id number] Closed 10/13/2021 06/17/2022 1 1 Reason Comments Referral Information Neurosurgery Reason Comments Established Patient Specialty Diagnoses / Procedures Referred By Contac t Referred To Contact Hematology/Oncology / HEMATOLOGY/ONCOLOGY Diagnoses 2 week phone follow up [phone] Procedures PHYS/QHP TELEPHONE EVALUATION 5-10 MIN PROVIDER SPECIALTY PHONE CALL Memo Cole MD [address] [place] [address] [place] [address] Memo Cole MD [address] [place] [address] [place] [address] Referral ID Status Reason Start Date Expiration Date Visits Re quested Visits Authorized [id number] Closed 10/27/2021 06/17/2022 1 1 Reason Comments Triage Internal Referral--o ld Reason Comments Appointment Reason Comments New Patient Specialty Diagnoses / Procedures Referred By Contac t Referred To Contact Neurology / BRAIN TUMOR Diagnoses Hydrocephalus (HCC) Hydrocephalus Procedures OFFICE/OUTPATIENT NEW MODERATE MDM 45-59 MINUTES NEW SURGICAL Elvi Cadena MD [address] [address] Kelly Perez, PADeanne [address] [place] [address] Referral ID Status Reason Start Date Expiration Date Visits Re quested Visits Authorized [id number] Closed 09/13/2022 06/17/2023 1 1 Reason Comments Patient Question Reason Comments Radiology MRI Specialty Diagnoses / Procedures Referred By Contac t Referred To Contact MR IMAGING Diagnoses 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HCC) Procedures MRI BRAIN WO/W IVCON MRI BRAIN BRAIN STEM W/O W/CONTRAST MATERIAL Kelly Perez PA-C [address] [place] [address] Mr Imaging Referral ID Status Reason Start Date Expiration Date V isits Requested Visits Authorized [id number] Closed Auto-Generate d Referral 09/20/2022 10/20/2023 1 [...] TISSUE NECK W/CONTRAST MATERIAL Memo Cole MD [address] [place] [address] [place] [address] Ct Imaging [facility] Referral ID Status Reason Start Date Expiration Date V isits Requested Visits Authorized [id number] Closed Auto-Generate d Referral 10/26/2023 06/17/2024 1 1 Specialty Diagnoses / Procedures Referred By Contac t Referred To Contact CT IMAGING Diagnoses Lung nodules Procedures CT CHEST W IVCON DIAGNOSTIC COMPUTED TOMOGRAPHY THORAX W/CONTRAST Memo Cole MD [address] [place] [address] Ct Imaging [id number] Referral ID Status Reason Start Date Expiration Date V isits Requested Visits Authorized [id number] Closed Auto-Generate d Referral 10/30/2022 11/29/2022 1 1 Specialty Diagnoses / Procedures Referred By Contac t Referred To Contact CT IMAGING Diagnoses Malignant neoplasm of head, face and neck (HCC) Lung nodules 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) Localized swelling, mass or lump of neck Procedures CT NECK SOFT TISSUE W IVCON CONTRAST CAT OF NECK TISSUE Memo Cole MD [address] [place] [address] [place] [address] [place] [address] Referral ID Status Reason Start Date Expiration Date V isits Requested Visits Authorized [id number] Closed Auto-Generate d Referral 09/23/2021 11/22/2021 1 1 Reason Comments Neck Pain Tingling Numbness Specialty Diagnoses / Procedures Referred By Contac t Referred To Contact Radiology 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 tumor perfusion protocol w and wo IV contrast Shimon Heaton, PA-C [address] [place] [address] Referral ID Status Reason Start Date Expiration Date Visits Requested Visits Authorized [id number] Authorized Perform Procedure 10/24/2023 10/23/2024 1 1 Reason Comments Neck Pain Specialty Diagnoses / Procedures Referred By Contac t Referred To Contact Diagnoses Cervical radiculopathy Senile osteoporosis Procedures ECG 12 lead Camille Harris MD [address] [facility], [address] [address] Referral ID Status Reason Start Date Expiration Date V isits Requested Visits Authorized [id number] Authorized 01/09/2024 01/08/2025 1 1 Specialty Diagnoses / Procedures Referred By Contac t Referred To Contact Radiology Diagnoses Cervical radiculopathy Procedures XR cervical spine complete 6+ views Camille Harris MD [address] [facility], [address] [address] Referral ID Status Reason Start Date Expiration Date Visits Requested Visits Authorized [id number] Authorized Perform Procedure 01/03/2024 01/02/2025 1 1 Specialty Diagnoses / Procedures Referred By Contac t Referred To Contact Radiology Diagnoses Cervical radiculopathy Procedures XR DEXA bone density Camille Harris MD [address] [facility], [address] [address] Referral ID Status Reason Start Date Expiration Date Visits Requested Visits Authorized [id number] Authorized Perform Procedure 01/08/2024 01/07/2025 1 1 [...] COMPUTED TOMOGRAPHY THORAX W/CONTRAST Memo Cole MD [address] [place] [address] [place] [address] Phone: tel: fax: [place] [phone] Referral ID Status Reason Start Date Expiration Date V isits Requested Visits Authorized [id number] Closed Auto-Generate d Referral 11/01/2024 12/01/2024 1 1 Reason Comments Skin Check Care Teams (unrecognized sec tion and content) Headlight Assembler Relationship Specialty Start Date End Date Griselda Hastings [address] [place] [phone] PCP - General Family Practice 11/20/18 Griselda Hastings [address] [place], [place] [phone] Referring Family Practice 11/20/18 Headlight Assembler Relationship Specialty Start Date End Date Griselda Hastings [address] [place] [phone] PCP - General Family Practice 11/20/18 Griselda Hastings [address] [place] [phone] Referring Family Practice 11/20/18 Headlight Assembler Relationship Specialty Start Date End Date Griselda Hastings [address] [place] [phone] PCP - General Family Practice 11/20/18 Griselda Hastings [address] [place] [phone] Referring Family Practice 11/20/18 Headlight Assembler Relationship Specialty Start Date End Date Griselda Hastings [address] [place] [phone] PCP - General Family Practice 11/20/18 Griselda Hastings [address] [place] [address], [place] [phone] Referring Family Practice 11/20/18 Headlight Assembler Relationship Specialty Start Date End Date Griselda Hastings [address] [place] [address], [phone] PCP - General Family Medicine 11/20/[address], [phone] Referring Family Medicine 11/20/18 Headlight Assembler Relationship Specialty Start Date End Date Griselda Hastings [address] [place] [address], [phone] PCP - General Family Medicine 11/20/18 Griselda Hastings [address] [place] [address], [phone] Referring Family Medicine 11/20/18 Team Status: Inactive Member Role Status Poornima Hastings , DO Primary Care Provider Active Daniel Gaytan APRN Emergency Provider Active Team Status: Active Member Role Status Poornima Hastings DO Primary Care Provider Active Elvi Cadena MD Attending Provider Active Team Status: Active Member Role Status Poornima Hastings , DO Primary Care Provider Active Team Status: Inactive Member Role Status [facility] Griselda Hastings , DO Primary Care Provider Active Loi Wong Jr, MD Emergency Provider Active Team Status: Active Member Role Status Poornima Hastings DO Primary Care Provider Active Nikole Mota APRN FAMILY SUPPORT SPECIALIST-C Attending Provider A ctive Team Status: Inactive Member Role Status Poornima Hastings DO Primary Care Provider Active Elvi Cadena MD Attending Provider Active Team Status: Inactive Member Role Status Poornima Hastings DO Primary Care Provider Active Nikole Mota APRN FAMILY SUPPORT SPECIALIST-C Attending Provider A ctive Headlight Assembler Relationship Specialty Start Date End Date Griselda Hastings [address] [place] [address], [place] [phone] PCP - General Family Medicine 11/20/18 Griselda Hastings [address] [place] [address], [place] [address] Referring Family Medicine 11/20/18 Elvi Cadena MD [address] [place] [address], [place] [address] Referring Neurology 08/18/22 Headlight Assembler Relationship Specialty Start Date End Date Griselda Hastings [address] [place] [address], [place] [address] PCP - General Family Medicine 11/20/18 Griselda Hastings [address] [place] [address], [place] [phone] Referring Family Medicine 11/20/18 Elvi Cdaena MD [address] [place] [address], [place] [address] Referring Neurology 08/18/22 Headlight Assembler Relationship Specialty Start Date End Date Griselda Hastings [address] [place] [address], [place] [address] PCP - General Family Medicine 11/20/[address] [place] [address] Referring Family Medicine 11/20/18 Elvi Cadena MD [address] [place] [address], [place] [address] Referring Neurology 08/18/22 Team Status: Inactive Member [...] Active Ruddy Harvey MD Attending Provider Active Headlight Assembler Relationship Specialty Start Date End Date Griselda Hastings DO [address] [place] [address] PCP - General Family Medicine 02/13/23 Headlight Assembler Relationship Specialty Start Date End Date Griselda Hastings DO [address] [place] [phone] PCP - General Family Medicine 02/13/23 Team Status: Inactive Member Role Status Dates Griselda Hastings DO Primary Care Provider Active Sta rt: May 04, 2023 End: May 04, 2023 Nikole Mota APRN FAMILY SUPPORT SPECIALIST-C Attending Provider Active Start: April End: May [...] September 05, 2023 End: September 05, 2023 Headlight Assembler Relationship Specialty Start Date End Date Griselda Hastings DO PCP - General 01/03/19 Headlight Assembler Relationship Specialty Start Date End Date Griselda Hastings DO [address] [facility] [address] [place] [address] PCP - General 01/03/19 [place] [address] [place] [address] Consulting Physician Hematology and Oncology 10/05/23 Team [...] October 29, 2023 End: October 29, 2023 Headlight Assembler Relationship Specialty Start Date End Date Griselda Hastings [address] [place] [phone] PCP - General Family Medicine 11/20/18 Griselda Hastings [address] [place] [phone] Referring Family Medicine 11/20/18 Elvi Cadena MD [address] [facility] [address] [address] Referring Neurology 08/18/22 Team Status: Active Member Role Status Dates Lillima Cason MD Blender Snuff Active Griselda Hastings DO Primary Care Provider Active Team Status: Inactive Member Role Status Poornima Hastings DO Primary Care Provide r, Attending Provider Active Start: December 03, 2023 End: December 03, 2023 Team Status: Inactive Member Role Status Poornima Hastings DO Primary Care Provide r, Attending Provider Active Start: January 31, 2024 End: January 31, 2024 Headlight Assembler Relationship Specialty Start Date End Date Griselda Hastings [address] [place] [phone] PCP - General Family Medicine 11/20/18 Griselda Hastings [address] [place] [phone] Referring Family Medicine 11/20/18 Elvi Cadena MD [address] [facility] [address] [place] [address] Referring Neurology 08/18/22 Headlight Assembler Relationship Specialty Start Date End Date Griselda Hastings [address] [place], [place] [phone] PCP - General Family Medicine 11/20/18 Griselda Hastings [address] [place], [place] [phone] Referring Family Medicine 11/20/18 Elvi Cadena MD [address] [facility] [address] [place] [address] Referring Neurology 08/18/22 Headlight Assembler Relationship Specialty Start Date End Date Griselda Hastings [address] [place] [phone] PCP - General Family Medicine 11/20/18 Griselda Hastings [address] [place] [phone] Referring Family Medicine 11/20/18 Headlight Assembler Relationship Specialty Start Date End Date Griselda Hastings DO [address] [place] [address] PCP - General 01/03/19 [place] [address] [place] [address] Consulting Physician Hematology and Oncology 10/05/23 Solomon Narayanan PA-C [address] [facility], [address] [address] Physician Harvest Contractor Neurosurgery 12/12/23 Team Status: Inactive Member Role Status Dates Griselda Hastings DO Primary Care Provide r, Attending Provider Active Start: April 01, 2024 End: April 01, 2024 Headlight Assembler Relationship Specialty Start Date End Date Griselda Hastings DO [address] [place] [address] PCP - General 01/03/19 [place] [address] [place] [address] Consulting Physician Hematology and Oncology 10/05/23 Solomon Narayanan PA-C [address] [facility], [address] [address] Physician Harvest Contractor Neurosurgery 12/12/23 Headlight Assembler Relationship Specialty Start Date End Date Griselda Hastings DO [address] [place] [address] PCP - General 01/03/19 [place] [address] [place] [address] Consulting Physician Hematology and Oncology 10/05/23 Solomon Narayanan PA-C [address] [place] [address] Physician Harvest Contractor Neurosurgery 12/12/23 Team Status: Inactive Member Role Status Dates Griselda Hastings DO Primary Care Provider Active Sta rt: April 28, 2024 End: April 28, 2024 Lilliam Cason MD Attending Provider Active Sta rt: April 28, 2024 End: April 28, 2024 Headlight Assembler Relationship Specialty Start Date End Date Griselda Hastings DO [address] [place] [address] PCP - General Family Medicine 02/13/23 Headlight Assembler Relationship Specialty Start Date End Date Griselda Hastings DO [address] [place] [address] PCP - General Family Medicine 02/13/23 Headlight Assembler Relationship Specialty Start Date End Date Griselda Hastings DO [address] [place] [address] PCP - General 01/03/19 [place] [address] [place] [address] Consulting Physician Hematology and Oncology 10/05/23 Solomon Narayanan PA-C [address] [facility], [address] [address] Physician Harvest Contractor Neurosurgery 12/12/23 Headlight Assembler Relationship Specialty Start Date End Date Griselda Hastings DO [address] [place] [address] PCP - General 01/03/19 [place] [address] [place] [address] Consulting Physician Hematology and Oncology 10/05/23 Solomon Narayanan PA-C [address] [facility], [address] [address] Physician Harvest Contractor Neurosurgery 12/12/23 Headlight Assembler Relationship Specialty Start Date End Date Griselda Hastings DO [address] [place] [address] PCP - General 01/03/19 [place] [address] [place] [address] Consulting Physician Hematology and Oncology 10/05/23 Solomon Narayanan PA-C [address] [facility], [address] [address] Physician Harvest Contractor Neurosurgery 12/12/23 Headlight Assembler Relationship Specialty Start Date End Date Griselda Hastings DO [address] [place] [address] PCP - General 01/03/19 [place] [address] [place] [address] Consulting Physician Hematology and Oncology 10/05/23 Solomon Narayanan PA-C [address] [facility], [address] [address] Physician Harvest Contractor Neurosurgery 12/12/23 Headlight Assembler Relationship Specialty Start Date End Date Griselda Hastings DO [address] [place] [address] PCP - General 01/03/19 [place] [address] [place] [address] Consulting Physician Hematology and Oncology 10/05/23 Solomon Narayanan PA-C [address] [facility], [address] [address] Physician Harvest Contractor Neurosurgery 12/12/23 Headlight Assembler Relationship Specialty Start Date End Date Griselda Hastings DO [address] [place] [address] PCP - General 01/03/19 [place] [address] [place] [address] Consulting Physician Hematology and Oncology 10/05/23 Solomon Narayanan PA-C [address] [facility], [address] [address] Physician Harvest Contractor Neurosurgery 12/12/23 Team Status: Inactive Member Role Status Dates Griselda Hastings DO Primary Care Provider Active Sta rt: June 24, 2024 End: June 24, 2024 Solomon Narayanan PA-C Attending Provider Active St art: June 24, 2024 End: June 24, 2024 Headlight Assembler Relationship Specialty Start Date End Date Griselda Hastings DO [address] [place] [address] PCP - General 01/03/19 [place] [address] [place] [address] Consulting Physician Hematology and Oncology 10/05/23 Solomon Narayanan PA-C [address] [address] [place] [phone] Physician Harvest Contractor Neurosurgery 12/12/23 Headlight Assembler Relationship Specialty Start Date End Date Griselda Hastings DO [address] [place] [facility] [address] PCP - General Family Medicine 02/13/23 Team Status: Inactive Member Role Status Dates Griselda Hastings DO Primary Care Jung r, Attending Provider Active Start: July 03, 2024 End: July 03, 2024 Headlight Assembler Relationship Specialty Start Date End Date Griselda Hastings DO [address] [place] [address] PCP - General Family Medicine 02/13/23 Headlight Assembler Relationship Specialty Start Date End Date Griselda Hastings DO [address] [place] [address] PCP - General Family Medicine [...] September 11, 2024 End: September 11, 2024 Headlight Assembler Relationship Specialty Start Date End Date Griselda Hastings DO [address] [place] [facility] [address] PCP - General Family Medicine 02/13/23 [...] September 20, 2024 End: September 20, 2024 Headlight Assembler Relationship Specialty Start Date End Date Griselda [...] Active Sta rt: October 10, 2024 Solomon Narayaann PA-C Attending Provider Active St art: October [...] October 10, 2024 End: October 10, 2024 Headlight Assembler Relationship Specialty Start Date End Date Griselda Hastings DO [address] [place] [address] PCP - General 01/03/19 [place] [address] [place] [address] Consulting Physician Hematology and Oncology 10/05/23 Solomon Narayanan PA-C [address] [place] [address] Physician Harvest Contractor Neurosurgery 12/12/23 Headlight Assembler Relationship Specialty Start Date End Date Griselda Hastings DO [address] [place] [address] PCP - General 01/03/19 [place] [address] [place] [address] Consulting Physician Hematology and Oncology 10/05/23 Solomon Narayanan PA-C [address] [place] [address] Physician Harvest Contractor Neurosurgery 12/12/23 Team Status: Inactive Member Role Status Dates Griselda Hastings DO Primary Care Provider Active Sta rt: October 27, 2024 End: October 27, 2024 Lilliam Cason MD Attending Provider Active Sta rt: October 27, 2024 End: October 27, 2024 Headlight Assembler Relationship Specialty Start Date End Date Griselda Hastings [address] [place] [phone] PCP - General Family Medicine 11/20/18 Griselda Hastings [address] [place] [phone] Referring Family Medicine 11/20/18 Elvi Cadena MD [address] [facility] [address] [place] [address], [place] [address] Referring Neurology 08/18/22 Headlight Assembler Relationship Specialty Start Date End Date Griselda Hastings [address] [place] [phone] PCP - General Family Medicine 11/20/18 Griselda Hastings [address] [place] [phone] Referring Family Medicine 11/20/18 Elvi Cadena MD [address] [facility] [address] [place] [address] Referring Neurology 08/18/22 Headlight Assembler Relationship Specialty Start Date End Date Griselda Hastings DO PCP - General Family Medicine 02/13/23 Team Status: Active Member Role Status Dates Griselda Hastings DO Primary Care Provider Active Sta rt: November 03, 2024 KARLO KellyC Attending Provider Active Start: November 03, [...] November 19, 2024 End: November 19, 2024 Headlight Assembler Relationship Specialty Start Date End Date Griselda Hastings DO PCP - [facility] 02/13/23 Team Status: Inactive Member Role Status Dates Griselda Hastings DO Primary Care Provide r, Attending Provider Active Start: 2024 End: 2024 Headlight Assembler Relationship Specialty Start Date End Date Griselda Hastings DO PCP - [facility] 02/13/23 Team Status: Active Member Role Status [...] January 12, 2025 End: January 12, 2025 Headlight Assembler Relationship Specialty Start Date End Date Griselda Hastings DO PCP [facility] 02/13/23 Headlight Assembler Relationship Specialty Start Date End Date Griselda [...] BE BASED ON THE PRIMARY CLINICAL RECORDS. [facility] [employer] [facility]. provides no warranty or guarantee of the accuracy or completeness of information in this document.
== END 2025-02-12 12:20 | disposition home or self-care (01) ==
LOC: PM 12:20
PROVIDERS: PCP Family Medicine; Visit Provider Nurse Practitioner
DX: M48.02 Spinal stenosis, cervical region (principal); M96.1 Postlaminectomy syndrome, not elsewhere classified
CPT/HCPCS: G0463

== ENCOUNTER 2025-02-18 21:27 | Emergency (ER) | payer MEDICARE, OTHER, SELFPAY ==
[2025-02-18] VITALS (9 sets, daily range): BP systolic 92–124; BP diastolic 67–95; PULSE 77–89; TEMP 36.8; O2SAT 95–98; BMI 24.8
--- OUTSIDE RECORDS SUMMARY | 2025-02-18 21:38 | XMS_ITS | CCD ---
Author Organization [facility] CliniSysc Care Team Providers Care Peoplesoft Analyst Name Role Phone Griselda Hastings Primary Care Provider Griselda Hastings Attending Provider Griselda Hastings Unavailable Unavailable Unavailable Griselda Hastings Unavailable Sheng Schneider Unavailable Griselda Hastings Primary Care Provider [phone] Griselda Hastings Unavailable DO Griselda Hastings Primary Care Provider [phone] MD Oziel Cadena Attending Provider BAILEY Gaytan Emergency Provider MD Loi Wong Jr Emergency Provider Unavailable Unavailable DO Griselda Hastings Primary Care Provider MD Oziel Cadena Attending Provider BAILEY Gaytan Emergency Provider MD Loi Wong Jr Emergency Provider BAILEY Mota Attending Provider BAILEY Mota Attending Provider DO Griselda Hastings Primary Care Provider MD Oziel Cadena Attending Provider [phone] Trish Carney Unavailable Griselda Hastings Primary Care Provider [phone] Darling Griselda Wright Unavailable Tammi NORRIS, Oziel Ruiz Unavailable [phone] FLORES CAT Attending Unavailable FLORES CAT Admitting Unavailable KUNS, GRISELDA WRIGHT Primary Care Unavailable Kuns, DO Griselda Primary Care Provider Kuns, DO Griselda Attending Provider MD Lima Joseph Attending Provider Dr. BRET HDEZ Attending Unavailable PCP, OTHER Primary Care Unavailable PCP, Other Primary Care Physician [phone] Kuns, DO Griselda Primary Care Provider [phone] BAILEY Gaytan Emergency Provider quentin, DO Rohit Mullins Emergency Provider Darling, DO Camara Attending Provider [phone] Lilliam Cason Unavailable Andreas, DO Griselda Primary Care Provider [phone] BAILEY Gaytan Emergency Provider quentin, DO Rohit Mullins Emergency Provider Darling, DO Griselda Attending Provider [phone] MD Lilliam Cason Attending Provider Ruddy Harvey Unavailable BAILEY Mota Attending Provider MD Ruddy Harvey Attending Provider [phone] Kuns, DO Griselda Primary Care Provider [phone] Kuns DO, Griselda R Primary Care Provider Kuns, DO Griselda Primary Care Provider [phone] JOSE CRUZ KHAN Attending Unavailable JOSE CRUZ KHAN Referring Unavailable KUNS, GRISELDA R Primary Care Unavailable JOSE CRUZ KHAN Attending Unavailable JOSE CRUZ KHAN Referring Unavailable KUNS, GRISELDA R Primary Care Unavailable Kuns, DO Griselda Primary Care Provider [phone] MD Ruddy Harvey Attending Provider Darling DOGriselda R Primary Care Provider Andreas DO, Griselda R Primary Care Provider Stiven NORRIS, Helder Jarrett Unavailable AndreasDO Camara Attending Provider Griselda Hastings Primary Care Provider Oziel Cadena MD Unavailable Andreas DO, Griselda R Primary Care Provider Milks PA-C, Solomon A Unavailable Milks PA-C, Solomon A Unavailable Darling Griselda JOSÉ R Primary Care Provider Griselda Hastings DO Primary Care Provider Milks PA-C, Solomon A Attending Provider Andreas Griselda JOSÉ Primary Care Provider Milks PA-C, Solomon A Attending Provider Wes NORRIS, Ruddy Moraes Attending Provider Humberto NORRIS, Daisy Driver Emergency Provider Griselda Hastings DO R Primary Care Provider [phone] Griselda Hastings DO Primary Care Provider Manisha Negron APRN Emergency Provider Andreas DOGriselda Other Provider Manisha Negron APRN Attending Provider [phone] Milks PA-C, Solomon Nae Attending Provider Griselda Hastings DO R Primary Care Provider Stiven NORRIS, Helder Jarrett Unavailable Milks PA-C, Solomon A Unavailable SOTAK, SHIMON K Referring Unavailable KUNS, GRISELDA R Primary Care Unavailable HELDER JACK Attending Unavailable SOTAK, SHIMON K Referring Unavailable KUNS, GRISELDA R Primary Care Unavailable HARRIS, XIAOFEI Admitting Unavailable HARRIS, XIAESAUEI Attending Unavailable KUNS, GRISELDA R Primary Care [...] KUNS, GRISELDA R Primary Care Unavailable ABHYANKAR, RACQUEL Referring Unavailable ABHYANKAR, RACQUEL Attending Unavailable KUNS, GRISELDA ZACKARY Primary Care Unavailable ABHYANKAR, RACQUEL Referring Unavailable KUNS, GRISELDA ZACKARY Primary Care Unavailable Asaad Nathanael NORRIS Attending Provider Darling JOSÉ Griselda Attending Provider [phone] SafManisha smith N Admitting Unavailable SaffleManisha N Attending Unavailable Kuns, Griselda Primary Care Unavailable Kuns, Griselda Consulting Unavailable Kuns, Griselda Primary Care Unavailable Milks, Solomon A Admitting Unavailable Milks, Solomon A Attending Unavailable Kuns, Griselda Primary Care Unavailable Asaad, Imad Admitting Unavailable Asaad, Imad Attending Unavailable Saffle, Manisha N Admitting Unavailable Saffle Manisha N Attending Unavailable Kuns, Griselda Primary Care Unavailable Kuns, Griselda Primary Care Unavailable Daisy Paul Admitting Unavailable Daisy Paul Attending Unavailable Kuns Griselda Attending Unavailable Kuns, Griselda Admitting Unavailable Kuns, Griselda Primary Care Unavailable Milks, Solomon A Admitting Unavailable Milks, Solomon A Attending Unavailable Kuns, Griselda Primary Care Unavailable Ruddy Harvey Attending Unavailabl e Kuns, Griselda Primary Care Unavailable Ruddy Harvey Admitting Unavailabl e DORETHA HARRIS Referring Unavailable KUNS, GRISELDA R Primary Care Unavailable HARRIS, XIAOFEI Referring Unavailable KUNS, GRISELDA R Primary Care Unavailable HARRIS, XIAOFEI Referring Unavailable KUNS, GRISELDA R Primary Care Unavailable SOLOMON NARAYANAN Attending Unavailable KUNS, GRISELDA R Primary Care Unavailable HARRIS, MARVINESAUEI Attending Unavailable KUNS, GRISELDA R Primary Care Unavailable HARRIS, XIAESAUEI Attending Unavailable KUNS, GRISELDA R Primary Care Unavailable Darling JOSÉ Griselda Primary Care Provider Lilliam Cason MD Attending Provider Elizabeth Hagan PA-C Attending Provider Conchita NORRIS, Imhi Other Provider Solomon Montez APRN Attending Provider Griselda Hastings DO Attending Provider CADENAKATY ARNOLDNDAN W Attending Unavailable CADENA, OZIEL W Attending Unavailable CADENA, OZIEL W Attending Unavailable CADENA OZIEL W Attending Unavailable STEVEN MARVINCHING Referring Unavailable ANAHI FRANCO Attending Unavailable CADENA, OZIEL W Attending Unavailable CADENA, OZIEL W Attending Unavailable CADENA, OZIEL W Attending Unavailable Giedraitis , Andrius Vytautas Attending Unavailable Giedraitis MD, Andrius Vytautas Attending Unavailable Giedraitis MD, Andrius Vytautas Attending Unavailable Giedraitis MD, Andrius Vytautas Attending Unavailable Giedraitis MD, Andrius Vytautas Attending Unavailable Giedraitis MD, Andrius Vytautas Attending Unavailable HENRY, DEBRA Referring Unavailable Unavailable Unavailable Unavailable Allergies Allergy Classification Reported Allergen(s) Allergy Type Date of Onset Reaction(s) Facility Cephalosporins (antibiotic) (1 source) Cephalexin Drug Allergy 8 [facility] (20 sources) Cephalexin; Translations: [CEPHALEXIN] Drug Allergy 8 [facility] (20 sources) Cephalexin; Translations: [Keflex] Drug Allergy rash [facility] Other (1 source) Cephalexin; Translations: [Keflex] Drug Allergy [facility] (17 sources) Keflet; Translations: [KEFLET] Propensity to adverse reactions [facility] (1 source) ALLERGIES NOT ON FILE; Translations: [ALLERGIES NOT ON FILE] Propensity to adverse reactions (disorder) [facility] Repository NEGATED: Highlighted row has been ruled out! (1 source) natural latex rubber; Translations: [LATEX, NATURAL RUBBER] Drug allergy (disorder) [facility] NEGATED: Highlighted row has been ruled out! (1 source) No IV Contrast Allergy.; Translations: [IV Dye, Iodine Containing] Drug allergy (disorder) [facility] Medications Current Medications Medication Drug Class(es) Dates [...] 28, 2024 10:44am Start: 10-10-2023 HYDROcodone-ac etaminophen (Elkins) 5-325 MG tablet 10/10/2023 Active Start: 09-05-2023 End: 04-01-2024 take 1 tablet by mouth every eight hours as needed Hydrocodone-Acetaminophen 5-325 mg table t Discontinued TAB PO Every 8 hours as needed September 05, 2023 12:00am April 01, 2024 11:01am Start: 06-04-2023 take 1 tablet by myles th once daily as needed for pain HYDROcodone-acetaminophen (Elkins) 5-325 MG tablet take 1 tablet orally daily NEEDED FOR PAIN MUST LAST 30 DAYS 10/10/2023 Active Start: 12-10-2017 End: 04-29-2018 take 1 tablet by mouth every four hours Hydrocodone-Acetaminophen (Elkins) 5-325 mg tablet Discontinued 1 TAB PO Q4H December 10, 2017 April 29, 2018 3:12pm End: 04-10-2024 take 1.5 tablets by mouth twice daily as needed for pain HYDROcodone-acetaminophen (Elkins) 5-325 mg tablet Take 1.5 tablets by [...] 20 April 17, 2022 July 17, 2022 9:01am 1 [...] Comment on above: TAKE 1 CAPSULE BY [facility] EVERY 12 HOURS FOR 10 DAYS 0.4 [...] mg injection (2 sources) Antihypoglycemic Agent Start: 10-23- 2024 50 ml glucose 500 mg/ml prefilled syringe [...] November 17, 2024 2:16pm polyethylene glycol 3350 20217 mg powder for oral solution (1 source) [...] 1:50pm Start: 04-06-2022 take 1 tablet by ymles every twenty-four hours as needed tiZANidine (ZANAFLEX) 4 mg tablet Take 4 mg by mouth at bedtime as needed. 0 08/29/2022 Active Start: 11-01-2021 tiZANidine HCl - 4 MG Oral Tablet Quantity: 30 Refills: 0 Ordered: 01-Nov-2021 DO Start : 01-Nov-2021 Active take 1 capsule by mo [facility] once daily at bedtime tiZANidine (Zanaflex) 4 [...] AFTERNOON and 2 at bedtime as directed [id number] 200 actuat albuterol 0.09 mg/actuat metered dose [...] 26, 2023 12:00am May 07, 2023 9:23am Ubc0076-Moh Waz-Tmjn-Bkj-Asb-C (7 sources) Osmotic Laxative, Vitamin C Start: 10-10-2024 End: 10-24-2024 [id number] Jdq-Cybm-Arq-Asb-C (Plenvu) 140-9-5.2 gram powder in packet, sequential Discontinued 0 PO .COMPLEX 3 October 10, 2024 12:00am October 24, 2024 11:48am PO Start: 10-10-2024 Pqk0001-Arh Cantrell e-Kcht-Ppd-Asb-C (Plenvu) 140-9-5.2 gram powder in packet, sequential [...] tablet by myles th twice daily. citalopram 10 mg oral tablet [...] (20 sources) Dietary Cholesterol Absorption Inhibitor Start: End: [...] 02/27/2019 10/17/2022 Discontinued take 1 capsule by [facility] every twenty-four hours Gabapentin 100 MG 1 capsule Orally Once a day Not-Taking/PRN Comment on above: Take 1 capsule by [facility] three times daily for 30 days. gadoterate meglumine (Dotarem) 0.5 mmol/mL contrast injection 30 mL (1 source) Start: 12-13-19 End: 12-13-19 inject 30 mL intravenously once 30 mL, intravenous, Once in imaging, Starting on [facility] 12/13/23 at 0817, For 1 dose, Administer [...] 17, 2022 9:01am [facility] daily at mealtime as needed [...] 02, 2023 1:48pm take 1 capsule by [facility] once daily at mealtime indomethacin SR (Indocin SR) 75 MG ER capsule indomethacin ER 75 mg capsule,extended release take 1 capsule by mouth once daily with food 0 Active take 1 capsule by mo [facility] every twenty-four hours Indomethacin ER 75 MG [...] Daily 09/05/2023 Active take 2 tablets by mo ut once daily lisinopril 5 mg tablet Take [...] Coronary arteriosclerosis; Translations: [Atherosclerotic heart disease of havasupai coronary artery without angina pectoris] Onset: 4 [...] imaging of brain abnormal] Onset: 09-19-2021 Resolved: 04-04-2022 Episodic Other skin disorders (20 sources) Vesicular [...] Test Name Value Interpretation Reference Range Facility 36on 02-13-2025 36 Patient scheduled fo r 03/24/25 @ 10:30am [facility] 36 LVM for pt to call jose ferrer to schedule consult with Dr. Ramirez to discuss SCS placement. Imaging requested. Please transfer pt to pre reg after call. Please inform bid writer when scheduled. [employer] reps will need notified. [facility] Telephoneon 02-13-2025 Telephone [phone] Shantel Melendez 1960 M Date Provider Department Center 02/13/[address] [facility] SURG Second Fl No family history on file [facility] No Panel Informationon 01-08 [facility] XR CERVICAL SPINE 2-3 VIEWSo n [...] By: Yehuda Pozo on 2024 Study report [address] [address] XRay Report Signed Patient: Shantel Melendez MR#: [id number] : 1960 Acct:[id number] Age/Sex: 64 / M ADM Date: 5 Loc: XDS Room: Type: [facility] Attending Dr: Griselda Hastings DO [...] Jr., D.O. 2024 4:30 PM Dictation Location: [place] [address] Transcribed By: [facility] 11/24/24 1630 Dictated By: Yung Pozo Jr, DO 11/24/24 1630 Signed By: 11/24/24 1630 [facility] XR chest 2V*on 2024 XR chest 2V* [facility] [place] [address] XRay Report Signed Patient: Shantel Melendez MR#: [id number] : 1960 Acct:[id number] Age/Sex: 64 / M ADM Date: 11/24/24 [facility] Attending Dr: Griselda Hastings DO Copies [...] ABNORMALITY. Impression dictated by: Yung Pozo Jr., D.OMaria R 2024 4:30 PM Dictation Location: [facility]19 Transcribed By: [facility] 11/24/24 1630 Dictated By: Yung Pozo Jr, DO 11/24/24 1630 Signed By: 11/24/24 1630 Normal [facility] Influenza virus B Ag [Presen ce] in Upper respiratory specimen by Rapid immunoassayon 11-19-2024 FLUBV Ag IA.rapid Ql (Nph) Influenza virus B Ag [Presence] in Upper respiratory specimen by Rapid immunoassay [facility] FLUBV Ag IA.rapid Ql (Nph) Negative [facility] No Panel Informationon 11-19 Influenza Type A (Rapid) Negative [facility] POC SARS CoV-2 Antigen Negative [facility] No Panel InformationOrdered By: Griselda Hastings on 11-19-2024 Quick Strep (POC) [facility] RSV (POC) [facility] CNOVSPon 11-07-2024 CNOVSP Visit (SP) Office ([place]) ----- SHANTEL MELENDEZ ([id number]) 1960 M Date Time Provider Department 11/07/24 9:20 AM RACQUEL COLE During your visit today, we recorded the following information about you: Temperature Pulse Respiration Blood pressure 97.5 degrees 72/minute 16/minute 115/89 Weight Height 79.3 kg 1.706 m Racquel Cole MD 11/07/2024 11:09 AM Signed NAME: Shantel Melendez CLINIC NO.: [id number] DATE OF SERVICE: November 07, 2024 ([place]) Some elements in this clinic note that are critical to medical decision making have been carefully reviewed and included from a prior clinic note dated: November 02, 2023 ([place]) Referring Provider: Griselda Hastings, DO Additional Clinicians involved in Shantel Melendez's care: Dr Kimberly Nichole ENT, Dr. 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 10/05/2021 - MRI Brain: [facility] There is T2 and T2 flair hyperintense signal predominantly to the right of midline in the jose but also involving the left anterior jose with extension to the right facial colliculus [...] midline into the left side of the jose. There appears to be a 2 mm focus of nodular enhancement at the apex of the right internal auditory canal. This may represent (more content not included)... Normal [facility] No Panel InformationOrdered By: Nathanael Arango on 11-05-2024 Miscellaneous Pathology Test See comment [facility] Comment on above: See report. Scanned copy available in EMR. Pathology Request for Lab Co rpon 11-05-2024 Pathology Request for Lab Nancy Normal [facility] Comment on above: Order Comment: GI SP ECIMEN Result Comment: See report. Scanned copy available in EMR. PERFORMED BY: [place] [address] PATHOLOGIST BAKERY HELPER EDUARDO HOLLINGSWORTH M.D. Performed By: #### P ATH TO [facility] #### [address] Basophils Auto (Bld) [#/Vol] on 11-03-2024 Basophils (Bld) [#/Vol] Automated basophil count <0.11 [facility] Basophils (Bld) [#/Vol] 0.06 10*3/uL <0.11 [facility] Basophils/100 WBC Auto (Bld) on 11-03-2024 Basophils/100 WBC (Bld) Automated basophil % [facility] Basophils/100 WBC (Bld) 1.0 % [facility] Blood manual differential co mment interpretation narrativeon 11-03-2024 Manual differential comment [facility] (Bld) [Interp] Blood manual differential comment interpretation narrative [facility] Manual differential comment [facility] (Bld) [Interp] Auto [facility] CBC W Auto Differential pane l (Bld)on 11-03-2024 Basophils (Bld) [#/Vol] 0.06 10*3/uL [facility] Basophils/100 WBC (Bld) 1 % [facility] Differential cell count method Nom (Bld) Auto [facility] Eosinophils (Bld) [#/Vol] 0.16 10*3/uL [facility] Eosinophils/100 WBC (Bld) 2.7 % [facility] Erythrocyte distribution width (RBC) [Ratio] 14.6 % 11.5 - 15.0 % [facility] Hematocrit (Bld) [Volume fraction] 40 % 39.0 - 51.0 % [facility] Hemoglobin (Bld) [Mass/Vol] 13.6 g/dL 13.0 - 17.0 g/dL [facility] Immature granulocytes (Bld) [#/Vol] [facility] Immature granulocytes/100 WBC (Bld) 0.2 % [facility] Lymphocytes (Bld) [#/Vol] 2.73 10*3/uL [facility] Lymphocytes/100 WBC (Bld) 45.3 % [facility] MCH (RBC) [Entitic mass] 31.9 pg 26.0 - 34.0 pg [facility] MCHC (RBC) [Mass/Vol] 34 g/dL 30.5 - 36.0 g/dL [facility] MCV (RBC) [Entitic vol] 93.9 fL 80.0 - 100.0 fL [facility] Monocytes (Bld) [#/Vol] 0.4 10*3/uL [facility] Monocytes/100 WBC (Bld) 6.6 % [facility] Neutrophils (Bld) [#/Vol] 2.67 10*3/uL [facility] Neutrophils/100 WBC (Bld) 44.2 % [facility] Nucleated RBC (Bld) [#/Vol] [facility] Nucleated RBC/100 WBC (Bld) [Ratio] 0 % /100 WBC [facility] Platelet mean volume (Bld) [Entitic vol] 11 fL 9.0 - 12.7 fL [facility] Platelets (Bld) [#/Vol] 281 10*3/uL [facility] RBC (Bld) [#/Vol] 4.26 10*6/uL 4.20 - 6.00 m/uL [facility] WBC (Bld) [#/Vol] 6.03 10*3/uL [facility] Basophils (Bld) [#/Vol] 0.06 10*3/uL Normal <0.11 [facility] Comment on above: Order Comment: Speci men Type: BLOOD SPECIMEN Ordering Facility: [facility] Address: [address] [place] [address] Performed By: #### 5 7021-8 #### [facility] CLIA [id number] [address] [place] [address] Basophils/100 WBC (Bld) 1.0 % Normal [facility] Comment on above: Order Comment: Speci men Type: BLOOD SPECIMEN Ordering Facility: [facility] Address: [address] [place] [address] Performed By: #### 5 7021-8 #### [facility] CLIA [id number] [address] [place] [address] Differential cell count method Nom (Bld) Auto Normal [facility] Comment on above: Order Comment: Speci men Type: BLOOD SPECIMEN Ordering Facility: [facility] Address: [address] [place] [address] Performed By: #### 5 7021-8 #### [facility] CLIA [id number] [address] [place] [address] Eosinophils (Bld) [#/Vol] 0.16 10*3/uL Normal <0.46 [facility] Comment on above: Order Comment: Speci men Type: BLOOD SPECIMEN Ordering Facility: [facility] Address: [address] [place] [address] Performed By: #### 5 7021-8 #### [facility] CLIA [id number] [address] [place] [address] Eosinophils/100 WBC (Bld) 2.7 % Normal [facility] Comment on above: Order Comment: Speci men Type: BLOOD SPECIMEN Ordering Facility: [facility] Address: [address] [place] [address] Performed By: #### 5 7021-8 #### [facility] CLIA [id number] [address] [place] [address] [place] [address] Erythrocyte distribution width (RBC) [Ratio] 14.6 % Normal 11.5-15.0 [facility] Comment on above: Order Comment: Speci men Type: BLOOD SPECIMEN Ordering Facility: [facility] Address: [address] [place] [address] Performed By: #### 5 7021-8 #### [facility] CLIA [id number] [address] [place] [address] Hematocrit (Bld) [Volume fraction] 40.0 % Normal 39.0-51.0 [facility] Comment on above: Order Comment: Speci men Type: BLOOD SPECIMEN Ordering Facility: [facility] Address: [address] [place] [address] Performed By: #### 5 7021-8 #### [facility] CLIA [id number] [address] [place] [address] Hemoglobin (Bld) [Mass/Vol] 13.6 g/dL Normal 13.0-17.0 [facility] Comment on above: Order Comment: Speci men Type: BLOOD SPECIMEN Ordering Facility: [facility] Address: [address] [place] [address] Performed By: #### 5 7021-8 #### [facility] CLIA [id number] [address] [place] [address] Immature granulocytes (Bld) [#/Vol] 10*3/uL Normal <0.10 [facility] Comment on above: Order Comment: Speci men Type: BLOOD SPECIMEN Ordering Facility: [facility] Address: [address] [place] [address] Performed By: #### 5 7021-8 #### [facility] CLIA [id number] [address] [place] [address] Immature granulocytes/100 WBC (Bld) 0.2 % Normal [facility] Comment on above: Order Comment: Speci men Type: BLOOD SPECIMEN Ordering Facility: [facility] Address: [address] [place] [address] Performed By: #### 5 7021-8 #### [facility] CLIA [id number] [address] [place] [address] Lymphocytes (Bld) [#/Vol] 2.73 10*3/uL Normal 1.00-4.00 [facility] Comment on above: Order Comment: Speci men Type: BLOOD SPECIMEN Ordering Facility: [facility] Address: [address] [place] [address] Performed By: #### 5 7021-8 #### [facility] CLIA [id number] [address] [place] [address] Lymphocytes/100 WBC (Bld) 45.3 % Normal [facility] Comment on above: Order Comment: Speci men Type: BLOOD SPECIMEN Ordering Facility: [facility] Address: [address] [place] [address] Performed By: #### 5 7021-8 #### [facility] CLIA [id number] [address] [place] [address] MCH (RBC) [Entitic mass] 31.9 pg Normal 26.0-34.0 [facility] Comment on above: Order Comment: Speci men Type: BLOOD SPECIMEN Ordering Facility: [facility] Address: [address] [place] [address] Performed By: #### 5 7021-8 #### [facility] CLIA [id number] [address] [place] [address] MCHC (RBC) [Mass/Vol] 34.0 g/dL Normal 30.5-36.0 [facility] Comment on above: Order Comment: Speci men Type: BLOOD SPECIMEN Ordering Facility: [facility] Address: [address] [place] [address] Performed By: #### 5 7021-8 #### [facility] CLIA [id number] [address] [place] [address] MCV (RBC) [Entitic vol] 93.9 fL Normal 80.0-100.0 [facility] Comment on above: Order Comment: Speci men Type: BLOOD SPECIMEN Ordering Facility: [facility] Address: [address] [place] [address] Performed By: #### 5 7021-8 #### [facility] CLIA [id number] [address] [place] [address] Monocytes (Bld) [#/Vol] 0.40 10*3/uL Normal <0.87 [facility] Comment on above: Order Comment: Speci men Type: BLOOD SPECIMEN Ordering Facility: [facility] Address: [address] [place] [address] Performed By: #### 5 7021-8 #### [facility] CLIA [id number] [address] [place] [address] Monocytes/100 WBC (Bld) 6.6 % Normal [facility] Comment on above: Order Comment: Speci men Type: BLOOD SPECIMEN Ordering Facility: [facility] Address: [address] [place] [address] Performed By: #### 5 7021-8 #### [facility] CLIA [id number] [address] [place] [address] Neutrophils (Bld) [#/Vol] 2.67 10*3/uL Normal 1.45-7.50 [facility] Comment on above: Order Comment: Speci men Type: BLOOD SPECIMEN Ordering Facility: [facility] Address: [address] [place] [address] Performed By: #### 5 7021-8 #### [facility] CLIA [id number] [address] [place] [address]85 Neutrophils/100 WBC (Bld) 44.2 % Normal [facility] Comment on above: Order Comment: Speci men Type: BLOOD SPECIMEN Ordering Facility: [facility] Address: [address] [place] [address] Performed By: #### 5 7021-8 #### [facility] CLIA [id number] [address] [place] [address] 41586 Nucleated RBC (Bld) [#/Vol] 10*3/uL Normal <0.01 [facility] Comment on above: Order Comment: Speci men Type: BLOOD SPECIMEN Ordering Facility: [facility] Address: [address] [place] [address] Performed By: #### 5 7021-8 #### [facility] CLIA [id number] [address] [place] [address] Nucleated RBC/100 WBC (Bld) [Ratio] 0.0 /100 WBC Normal [facility] Comment on above: Order Comment: Speci men Type: BLOOD SPECIMEN Ordering Facility: [facility] Address: [address] [place] [address] Performed By: #### 5 7021-8 #### [facility] CLIA [id number] [address] [place] [address]290 Platelet mean volume (Bld) [Entitic vol] 11.0 fL Normal 9.0-12.7 [facility] Comment on above: Order Comment: Speci men Type: BLOOD SPECIMEN Ordering Facility: [facility] Address: [address] [place] [address] Performed By: #### 5 7021-8 #### [facility] CLIA [id number] [address] [place] [address] Platelets (Bld) [#/Vol] 281 10*3/uL Normal 150-400 [facility] Comment on above: Order Comment: Speci men Type: BLOOD SPECIMEN Ordering Facility: [facility] Address: [address] [place] [address] Performed By: #### 5 7021-8 #### [facility] CLIA [id number] [address] [place] [address]33 RBC (Bld) [#/Vol] 4.26 10*6/uL Normal 4.20-6.00 [facility] Comment on above: Order Comment: Speci men Type: BLOOD SPECIMEN Ordering Facility: [facility] Address: [address] [place] [address] Performed By: #### 5 7021-8 #### [facility] CLIA [id number] [address] [place] [address] WBC (Bld) [#/Vol] 6.03 10*3/uL Normal 3.70-11.00 [facility] Comment on above: Order Comment: Speci men Type: BLOOD SPECIMEN Ordering Facility: [facility] Address: [address] [place], [place] [address] [address] Performed By: #### 5 7021-8 #### [facility] CLIA [id number] [address] [place] [address] CNPNon 11-03-2024 CNPN Telephone (HEMTSA) ----- SHANTEL MELENDEZ ([id number]) 1960 M Date Time Provider Department 11/03/24 RACQUEL COLE During your visit today, we recorded the following information about you: Curtis Da Silva RN 11/03/2024 7:50 AM Signed Please sign pended labs for 1 year f/u-will draw with CT today Thank You! 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 Encounter Status:Closed by RACQUEL COLE on 11/03/[address] [facility] [address] CHEST W IVCONon CT CHEST W IVCON * * *Final Report* * * DATE OF EXAM: Nov 03 2024 8:41AM [facility] 0539 - CT CHEST W IVCON [...] any questions regarding this interpretation, please call [phone]. If you are unable to reach us at the number above, please feel free to contact [facility] at [phone]. [id number] Normal [facility] CT Chest W contrast Tristin IMPRESSION: 1. [...] any questions regarding this interpretation, please call [phone]. If you are unable to reach us at the number above, please feel free to contact [facility] at [phone]. DIVISION OF RADIOLOGY * * *Final Report* * * DATE OF EXAM: Nov 03 2024 8:41AM [facility] 0539 - CT CHEST W IVCON [...] No additional findings. DIVISION OF RADIOLOGY Provider, [facility] - 11/03/2024 * * *Final Report* * * DATE OF EXAM: Nov 03 2024 8:41AM [facility] 0539 - CT CHEST W IVCON [...] any questions regarding this interpretation, please call [phone]. If you are unable to reach us at the number above, please feel free to contact [facility] at [phone]. [facility] CT NECK SOFT TISSUE W IVCONo n 11-03-2024 CT NECK SOFT TISSUE W IVCON * * *Final Report* * * DATE OF EXAM: Nov 03 2024 8:41AM [facility] 0013 - CT NECK SOFT TISSUE [...] evidence of abnormal lymph nodes. [email or web address] Transcribe Date/Time: Nov 03 2024 8:53A Dictated by: BENJAMIN AL MD This examination was interpreted and the report reviewed and electronically signed by: BENJAMIN AL MD on Nov 03 2024 9:01AM EST Thank you for allowing us to participate in the care of your patient. Should there be any questions regarding this interpretation, please call [phone]. If you are unable to reach us at the number above, please feel free to contact [facility] at [phone]. [id number] Normal [facility] CT Neck W contrast Tristin - IMPRESSION: Primary: Category 1. Expected post-treatment changes in the neck without evidence of recurrent disease in the primary site. Neck: Category 1. No evidence of abnormal lymph nodes. [email or web address] Transcribe Date/Time: Nov 03 2024 8:53A Dictated by: BENJAMIN AL MD This examination was interpreted and the report reviewed and electronically signed by: BENJAMIN AL MD on Nov 03 2024 9:01AM EST Thank you for allowing us to participate in the care of your patient. Should there be any questions regarding this interpretation, please call [phone]. If you are unable to reach us at the number above, please feel free to contact [facility] at [phone]. DIVISION OF RADIOLOGY * * *Final Report* * * DATE OF EXAM: Nov 03 2024 8:41AM [facility] 0013 - CT NECK SOFT TISSUE [...] Other: Not applicable. DIVISION OF RADIOLOGY Provider, Dacia Guillory - 11/03/2024 * * *Final Report* * * DATE OF EXAM: Nov 03 2024 8:41AM [facility] 0013 - CT NECK SOFT TISSUE [...] evidence of abnormal lymph nodes. [email or web address] Transcribe Date/Time: Nov 03 2024 8:53A Dictated by: BENJAMIN AL MD This examination was interpreted and the report reviewed and electronically signed by: BENJAMIN AL MD on Nov 03 2024 9:01AM EST Thank you for allowing us to participate in the care of your patient. Should there be any questions regarding this interpretation, please call [phone]. If you are unable to reach us at the number above, please feel free to contact [facility] at [phone]. [facility] CT Neck W contrast IVOrdered By: Ccf Provider on 11-03-2024 [facility] Eosinophils/100 WBC Auto (Bl d)on 11-03-2024 Eosinophils/100 WBC (Bld) Automated eosinophil % [facility] Eosinophils/100 WBC (Bld) 2.7 % [facility] Erythrocyte distribution wid th Auto (RBC) [Ratio]on 11-03-2024 Erythrocyte distribution width (RBC) [Ratio] Erythrocyte distribution width [Ratio] by Automated count 11.5-15.0 [facility] Erythrocyte distribution width (RBC) [Ratio] 14.6 % 11.5-15.0 [facility] Hematocrit Auto (Bld) [Volum e fraction]on 11-03-2024 Hematocrit (Bld) [Volume fraction] Hematocrit [Volume Fraction] of Blood by Automated count 39.0-51.0 [facility] Hematocrit (Bld) [Volume fraction] 40.0 % 39.0-51.0 [facility] Hemoglobin [Mass/volume] in Bloodon 11-03-2024 Hemoglobin (Bld) [Mass/Vol] Hemoglobin [Mass/volume] in Blood 13.0-17.0 [facility] Hemoglobin (Bld) [Mass/Vol] 13.6 g/dL 13.0-17.0 [facility] Laboratory - Hematology and Cell countson 11-03-2024 Eosinophils (Bld) [#/Vol] 0.16 10*3/uL <0.46 [facility] Immature granulocytes/100 WBC (Bld) 0.2 % [facility] Leukocytes [#/volume] correc mone for nucleated erythrocytes in Blood by Automated counon 11-03-2024 WBC corrected for nucl RBC Auto (Bld) [#/Vol] Leukocytes [#/volume] corrected for nucleated erythrocytes in Blood by Automated coun - [facility] WBC corrected for nucl RBC Auto (Bld) [#/Vol] 6.03 k/uL 3.70-11.00 [facility] Lymphocytes Auto (Bld) [#/Vo l]on 11-03-2024 Lymphocytes (Bld) [#/Vol] Lymphocytes [#/volume] in Blood by Automated count 1.00-4.00 [facility] Lymphocytes (Bld) [#/Vol] 2.73 10*3/uL 1.00-4.00 [facility] Lymphocytes/100 WBC Auto (Bl d)on 11-03-2024 Lymphocytes/100 WBC (Bld) Lymphocytes/100 leukocytes in Blood by Automated count [facility] Lymphocytes/100 WBC (Bld) 45.3 % [facility] MCH Auto (RBC) [Entitic mass ]on 11-03-2024 MCH (RBC) [Entitic mass] MCH [Entitic mass] by Automated count 26.0-34.0 [facility] MCH (RBC) [Entitic mass] 31.9 pg 26.0-34.0 [facility] MCHC Auto (RBC) [Mass/Vol]on 11-03-2024 MCHC (RBC) [Mass/Vol] MCHC [Mass/volume] by Automated count 30.5-36.0 [facility] MCHC (RBC) [Mass/Vol] 34.0 g/dL 30.5-36.0 [facility] MCV Auto (RBC) [Entitic vol] on 11-03-2024 MCV (RBC) [Entitic vol] MCV [Entitic volume] by Automated count 80.0-100.0 [facility] MCV (RBC) [Entitic vol] 93.9 fL 80.0-100.0 [facility] Monocytes Auto (Bld) [#/Vol] on 11-03-2024 Monocytes (Bld) [#/Vol] Automated blood monocyte count <0.87 [facility] Monocytes (Bld) [#/Vol] 0.40 10*3/uL <0.87 [facility] Monocytes/100 WBC Auto (Bld) on 11-03-2024 Monocytes/100 WBC (Bld) Automated monocyte % [facility] Monocytes/100 WBC (Bld) 6.6 % [facility] Neutrophils Auto (Bld) [#/Vo l]on 11-03-2024 Neutrophils (Bld) [#/Vol] Neutrophils [#/volume] in Blood by Automated count 1.45-7.50 [facility] Neutrophils (Bld) [#/Vol] 2.67 10*3/uL 1.45-7.50 [facility] Neutrophils/100 WBC Auto (Bl d)on 11-03-2024 Neutrophils/100 WBC (Bld) Automated neutrophil % [facility] Neutrophils/100 WBC (Bld) 44.2 % [facility] No Panel Informationon 11-03 Radiology Study observation (narrative) [facility] Immature Granulocyte # (Auto) <0.03 k/uL <0.10 [facility] Nucleated RBC Auto (Bld) [#/ Vol]on 11-03-2024 Nucleated RBC (Bld) [#/Vol] Nucleated erythrocytes [#/volume] in Blood by Automated count <0.01 [facility] Nucleated RBC (Bld) [#/Vol] 10*3/uL <0.01 [facility] Nucleated erythrocytes [Pres ence] in Blood by Automated counton 11-03-2024 Nucleated RBC Auto Ql (Bld) Nucleated erythrocytes [Presence] in Blood by Automated count [facility] Nucleated RBC Auto Ql (Bld) 0.0 /100{WBC} [facility] Platelet mean volume Auto (B ld) [Entitic vol]on 11-03-2024 Platelet mean volume (Bld) [Entitic vol] Platelet mean volume [Entitic volume] in Blood by Automated count 9.0-12.7 [facility] Platelet mean volume (Bld) [Entitic vol] 11.0 fL 9.0-12.7 [facility] Platelets Auto (Bld) [#/Vol] on 11-03-2024 Platelets (Bld) [#/Vol] Platelets [#/volume] in Blood by Automated count 150-400 [facility] Platelets (Bld) [#/Vol] 281 10*3/uL 150-400 [facility] RBC Auto (Bld) [#/Vol]on RBC (Bld) [#/Vol] Erythrocytes [#/volu me] in Blood by Automated count 4.20-6.00 [facility] RBC (Bld) [#/Vol] 4.26 10*6/uL 4.20-6.00 [facility] MR TRANSFER OF OUTSIDE FILMS on 10-21-2024 MR TRANSFER OF OUTSIDE FILMS Outside images for comparison or treatment purposes, not interpreted by Radiologists. [facility] Study Interpretation of outs jeffrey studyon 10-21-2024 Outside images for comparison or treatment purposes, not interpreted by Radiologists. IMAGING X-ray reportOrdered By: Evie Eubanks on 10-10-2024 Study report [facility] [place] [address] XRay Report Signed Patient: Shantel Melendez MR#: [id number] : 1960 Acct:[id number] Age/Sex: 63 / M ADM Date: 5 Loc: XD Room: Type: [facility] Attending Dr: Solomon Narayanan PA-C Copies to: Solomon Narayanan PAC~ Ordering Provider: Solomon DAUGHERTY Date of Service: 10/10/24 XR/XR cervical spine [...] Eubanks M.D. 10/10/2024 3:02 PM Dictation Location: [facility] Transcribed By: MARISA 10/10/24 150 Dictated By: Dorothy Eubanks MD 10/10/241454 Signed By: 10/10/24 [facility] Work Phone: XR cervical spine 2Von 10-10 XR cervical spine 2V [facility] [place] [address] [place] [address] XRay Report Signed Patient: Shantel Melendez MR#: [id number] : 1960 Acct:[id number] Age/Sex: 63 / M ADM Date: 10/10/24 Loc: XD Room: Type: [facility] Attending Dr: Solomon Narayanan PA-C Copies to: [...] Eubanks M.D. 10/10/2024 3:02 PM Dictation Location: [facility] Transcribed By: MARISA 10/10/241501 Dictated By: Dorothy Eubanks MD 10/10/241454 Signed By: 10/10/24 150 Normal [facility] Alanine aminotransferase [En zymatic activity/volume] in Serum or PlasmaOrdered By: Griselda Hastings on 10-07-2024 ALT [Catalytic activity/Vol] Alanine aminotransferase [Enzymatic activity/volume] in Serum or Plasma Low 7-52 [facility] Albumin [Mass/volume] in Ser um or Plasma by Bromocresol green (BCG) dye binding methoOrdered By: Griselda Hastings on 10-07-2024 Albumin BCG dye [Mass/Vol] Albumin [Mass/volume] in Serum or Plasma by Bromocresol green (BCG) dye binding metho Low 3.5-5.7 [facility] Alkaline phosphatase [Enzyma tic activity/volume] in Serum or PlasmaOrdered By: Griselda Hastings on 10-07-2024 ALP [Catalytic activity/Vol] Alkaline phosphatase [Enzymatic activity/volume] in Serum or Plasma 34-104 [facility] Aspartate aminotransferase [ Enzymatic activity/volume] in Serum or PlasmaOrdered By: Griselda Hastings on 10-07-2024 AST [Catalytic activity/Vol] Aspartate aminotransferase [Enzymatic activity/volume] in Serum or Plasma Low 13-39 [facility] Basophils Auto (Bld) [#/Vol] Ordered By: Griselda Hastings on 10-07-2024 Basophils (Bld) [#/Vol] Automated basophil count 0.0-0.2 [facility] Basophils/100 WBC Auto (Bld) Ordered By: Griselda Hastings on 10-07-2024 Basophils/100 WBC (Bld) Automated basophil % . [facility] Bilirubin.total [Mass/volume ] in Serum or PlasmaOrdered By: Griselda Hastings on 10-07-2024 Bilirubin [Mass/Vol] Bilirubin.total [Mass/volume] in Serum or Plasma 0.3-1.0 [facility] Calcium [Mass/volume] in Ser um or PlasmaOrdered By: Griselda Hastings on 10-07-2024 Calcium [Mass/Vol] Calcium [Mass/volume ] in Serum or Plasma 8.6-10.3 [facility] Carbon dioxide, total [Moles /volume] in Serum or PlasmaOrdered By: Griselda Hastings on 10-07-2024 CO2 [Moles/Vol] Carbon dioxide, tota l [Moles/volume] in Serum or Plasma 21.0-31.0 [facility] Chloride [Moles/volume] in S rica or PlasmaOrdered By: Griselda Hastings on 10-07-2024 Chloride [Moles/Vol] Chloride [Moles/vol ume] in Serum or Plasma 98-107 [facility] Cholesterol [Mass/volume] in Serum or PlasmaOrdered By: Griselda Hastings on 10-07-2024 Cholesterol [Mass/Vol] Cholesterol [Mass /volume] in Serum or Plasma High 140-200 [facility] Comment on above: Chol less than 200 m g/dl low riskChol 201-239 mg/dl borderline riskChol 240 mg/dl and greater high risk Cholesterol in HDL [Mass/vol ume] in Serum or PlasmaOrdered By: Griselda Hastings on 10-07-2024 Cholesterol in HDL [Mass/Vol] Serum or plasma high density lipoprotein (HDL) cholesterol measurement 23- [facility] Comment on above: HDL CHOL ATP-III CLA SSIFICATION Cardiovascular RiskHDL > or equal to 60 mg/dL LOWHDL < 40 mg/dL HIGH Cholesterol in LDL Calc [Mas s/Vol]Ordered By: Griselda Hastings on 10-07-2024 Cholesterol in LDL [Mass/Vol] Cholesterol in LDL [Mass/volume] in Serum or Plasma by calculation High 0-100 [facility] Comment on above: LDL ATP III CLASSIFI CATIONLDL less than 100 mg/dL OptimalLDL 100-129 mg/dL Near or above optimalLDL 130-159 mg/dL Borderline highLDL 160-189 mg/dL HighLDL greater than 189 mg/dL Very high Cholesterol in VLDL Calc [Ma ss/Vol]Ordered By: Griselda Hastings on 10-07-2024 Cholesterol in VLDL [Mass/Vol] Cholesterol in VLDL [Mass/volume] in Serum or Plasma by calculation [facility] Clostridioides difficile tox in B tcdB gene [Presence] in Stool by JER with probe deteOrdered By: Manisha Negron on 10-07-2024 C. difficile toxin B tcdB gene JER+probe Ql (Stl) Clostridioides difficile toxin B tcdB gene [Presence] in Stool by JER with probe dete Negative [facility] Comment on above: Testing performed by RT-PCR Clostridium Difficileon 09-17 Clostridium Difficile Negative Normal Negative [facility] Comment on above: Result Comment: Test ing performed by RT-PCR PERFORMED BY: [place] [address] PATHOLOGIST BAKERY HELPER RAKEL LAZARO M.D. Performed By: #### C DT #### [address] Complete Blood Count Auto Di ffon 10-07-2024 Basophils (Bld) [#/Vol] 0.0 10*3/uL Normal 0.0-0.2 [facility] Comment on above: Result Comment: PERF ORMED BY: [place] [address] PATHOLOGIST BAKERY HELPER RAKEL LAZARO M.D. Performed By: #### H S TROP #### [address] Basophils/100 WBC (Bld) 0.8 % Normal . [facility] Comment on above: Performed By: #### H S TROP #### [address] Eosinophils (Bld) [#/Vol] 0.0 10*3/uL Normal 0.0-0.45 [facility] Comment on above: Performed By: #### H S TROP #### [address] Eosinophils/100 WBC (Bld) 0.8 % Normal . [facility] Comment on above: Performed By: #### H S TROP #### [address] Erythrocyte distribution width (RBC) [Ratio] 13.7 % Normal 12.0-14.8 [facility] Comment on above: Performed By: #### H S TROP #### [address] Hematocrit (Bld) [Volume fraction] 36.6 % Low 38.8-50.0 [facility] Comment on above: Performed By: #### H S TROP #### [address] Hemoglobin (Bld) [Mass/Vol] 12.8 g/dL Low 13.0-17.0 [facility] Comment on above: Performed By: #### H S TROP #### [address] Lymphocytes (Bld) [#/Vol] 1.7 10*3/uL Normal 1.00-4.8 [facility] Comment on above: Performed By: #### H S TROP #### [address] Lymphocytes/100 WBC (Bld) 31.1 % Normal . [facility] Comment on above: Performed By: #### H S TROP #### [address] MCH (RBC) [Entitic mass] 32.4 pg Normal 27.5-35.2 [facility] Comment on above: Performed By: #### H S TROP #### [address] MCV (RBC) [Entitic vol] 92.8 fL Normal 83.5-101 [facility] Comment on above: Performed By: #### H S TROP #### [address] Mean Corpuscular HGB Conc 34.9 g/dL Normal 32.5-35.6 [facility] Comment on above: Performed By: #### H S TROP #### [address] Monocytes (Bld) [#/Vol] 0.3 10*3/uL Normal 0.0-0.8 [facility] Comment on above: Performed By: #### H S TROP #### [address] Monocytes/100 WBC (Bld) 4.9 % Normal . [facility] Comment on above: Performed By: #### H S TROP #### [address] Neutrophils (Bld) [#/Vol] 3.4 10*3/uL Normal 1.8-7.7 [facility] Comment on above: Performed By: #### H S TROP #### [facility] [address] Neutrophils/100 WBC (Bld) 62.4 % Normal . [facility] Comment on above: Performed By: #### H S TROP #### [facility] [address] NRBC% 0.0 /100{WBC} Normal 0-0.5 [facility] Comment on above: Performed By: #### H S TROP #### [address] Platelet mean volume (Bld) [Entitic vol] 8.8 fL Normal 6.6-10.[address] [facility] Comment on above: Performed By: #### H S TROP #### [address] Platelets (Bld) [#/Vol] 343 10*3/uL Normal 150-450 [facility] Comment on above: Performed By: #### H S TROP #### [place] [address] [place] RBC (Bld) [#/Vol] 3.94 10*6/uL Normal 3.90-5.60 [facility] Comment on above: Performed By: #### H S TROP #### [address] WBC (Bld) [#/Vol] 5.5 10*3/uL Normal 4.1-10.5 [facility] Comment on above: Performed By: #### H S TROP #### [address] Comprehensive Metabolic Pane chanel 10-07-2024 Albumin [Mass/Vol] 3.4 g/dL Low 3.5-5.7 [facility] Comment on above: Performed By: #### H S TROP #### [address] Albumin/Globulin [Mass ratio] 1.8 {ratio} Normal [facility] Comment on above: Performed By: #### H S TROP #### [address] ALP [Catalytic activity/Vol] 62 U/L Normal 34-104 [facility] Comment on above: Performed By: #### H S TROP #### [address] ALT [Catalytic activity/Vol] 6 U/L Low 7-52 [facility] Comment on above: Performed By: #### H S TROP #### [address] Anion gap [Moles/Vol] 9.7 mmol/L Normal 6.0-15.0 [facility] Comment on above: Performed By: #### H S TROP #### [address] AST [Catalytic activity/Vol] 8 U/L Low 13-39 [facility] Comment on above: Performed By: #### H S TROP #### [address] Bilirubin [Mass/Vol] 0.6 mg/dL Normal 0.3-1.0 [facility] Comment on above: Performed By: #### H S TROP #### [address] Calcium [Mass/Vol] 9.3 mg/dL Normal 8.6-10.3 [facility] Comment on above: Performed By: #### H S TROP #### [place] [address] [place] Chloride [Moles/Vol] 103 mmol/L Normal 98-107 [facility] Comment on above: Performed By: #### H S TROP #### [address] CO2 [Moles/Vol] 29.1 mmol/L Normal 21.0-31.0 [facility] Comment on above: Performed By: #### H S TROP #### [address] Creatinine [Mass/Vol] 0.74 mg/dL Normal 0.70-1.30 [facility] Comment on above: Performed By: #### H S TROP #### [place] [address] [place] GFR/1.73 sq M.predicted MDRD (S/P/Bld) [Vol rate/Area] mL/min/{1.73_m2} Normal [facility] Comment on above: Performed By: #### H S TROP #### [address] Globulin (S) [Mass/Vol] 1.9 g/dL Normal [facility] Comment on above: Performed By: #### H S TROP #### [address] Glucose [Mass/Vol] 84 mg/dL Normal 70-100 [facility] [facility] Comment on above: Result Comment: [facility] Glucose Reference Range is dependent on time and content of last meal. Glucose of more than 200 mg/dL in a nonstressed, ambulatory subject supports the diagnosis of Diabetes Mellitus. ADA recommended reference range Performed By: #### H S TROP #### [address] Potassium [Moles/Vol] 4.8 mmol/L Normal 3.5-5.1 [facility] Comment on above: Performed By: #### H S TROP #### [address] Protein [Mass/Vol] 5.3 g/dL Low 6.4-8.9 [facility] Comment on above: Performed By: #### H S TROP #### [place] [address] [place] Sodium [Moles/Vol] 137 mmol/L Normal 136-145 [facility] Comment on above: Performed By: #### H S TROP #### [address] Urea nitrogen [Mass/Vol] 7 mg/dL Normal 7-25 [facility] Comment on above: Performed By: #### H S TROP #### [facility] [address] Creatinine [Mass/volume] in Serum or PlasmaOrdered By: Griselda Hastings on 10-07-2024 Creatinine [Mass/Vol] Creatinine [Mass/v olume] in Serum or Plasma 0.70-1.30 [facility] Eosinophils Auto (Bld) [#/Vo l]Ordered By: Griselda Hastings on 10-07-2024 Eosinophils (Bld) [#/Vol] Automated eosinophil count 0.0-0.45 [facility] Eosinophils/100 WBC Auto (Bl d)Ordered By: Griselda Hastings on 10-07-2024 Eosinophils/100 WBC (Bld) Automated eosinophil % . [facility] Erythrocyte distribution wid th Auto (RBC) [Ratio]Ordered By: Griselda Hastings on 10-07-2024 Erythrocyte distribution width (RBC) [Ratio] Erythrocyte distribution width [Ratio] by Automated count 12.0-14.8 [facility] Globulin Calc (S) [Mass/Vol] Ordered By: Griselda Hastings on 10-07-2024 Globulin (S) [Mass/Vol] Serum globulin measurement by calculation (mass/volume) [facility] Glucose [Mass/volume] in Ser um or PlasmaOrdered By: Griselda Hastings on 10-07-2024 Glucose [Mass/Vol] Glucose [Mass/volume ] in Serum or Plasma 70-100 [facility] Comment on above: ADA recommended refe rence rangeRandom Glucose Reference Range is dependent on time and content of last meal. Glucose of more than 200 mg/dL in a nonstressed, ambulatory subject supports the diagnosis of Diabetes Mellitus. Hematocrit Auto (Bld) [Volum e fraction]Ordered By: Griselda Hastings on 10-07-2024 Hematocrit (Bld) [Volume fraction] Hematocrit [Volume Fraction] of Blood by Automated count Low 38.8-50.0 [facility] Hemoglobin [Mass/volume] in BloodOrdered By: Griselda Hastings on 10-07-2024 Hemoglobin (Bld) [Mass/Vol] Hemoglobin [Mass/volume] in Blood Low 13.0-17.0 [facility] Leukocytes [#/volume] correc mone for nucleated erythrocytes in Blood by Automated counOrdered By: Griselda Hastings on 10-07-2024 WBC corrected for nucl RBC Auto (Bld) [#/Vol] Leukocytes [#/volume] corrected for nucleated erythrocytes in Blood by Automated coun 4.1-10.5 [facility] Lipid Panelon 10-07-2024 Cholesterol [Mass/Vol] 204 mg/dL High 140-200 [facility] Comment on above: Result Comment: Chol less than 200 mg/dl low risk Chol 201-239 mg/dl borderline risk Chol 240 mg/dl and greater high risk Performed By: #### H S TROP #### [facility] [address] [place] [address] [place] Cholesterol in HDL [Mass/Vol] 35 mg/dL Normal 23-92 [facility] Comment on above: Result Comment: HDL CHOL ATP-III CLASSIFICATION Cardiovascular Risk HDL > or equal to 60 mg/dL LOW HDL < 40 mg/dL HIGH Performed By: #### H S TROP #### [facility] [address] [place] [id number] [place] Cholesterol.total/Chol esterol in HDL [Mass ratio] 5.8 {ratio} Normal <5.0 [facility] Comment on above: Performed By: #### H S TROP #### [facility] [address] [place] [id number] [place] LDL Cholesterol,Calculated 145 mg/dL High 0-100 [facility] Comment on above: Result Comment: LDL ATP III CLASSIFICATION LDL less than 100 mg/dL Optimal LDL 100-129 mg/dL Near or above optimal LDL 130-159 mg/dL Borderline high LDL 160-189 mg/dL High LDL greater than 189 mg/dL Very high Performed By: #### H S TROP #### [facility] [address] [place] [id number] [place] Triglyceride w/Reflex 118 mg/dL Normal 0-149 [facility] Comment on above: Result Comment: TRIG ATP III CLASSIFICATION TRIG less than 150 mg/dL Normal TRIG 150-199 mg/dL Borderline high TRIG 200-500 mg/dL High TRIG greater than 500 mg/dL Very high Standard traceable to the Center for Disease Conrtrol and Prevention (CDC) test method. Performed By: #### H S TROP #### [facility] [address] VLDL CHOLESTEROL 23 mg/dL Normal [facility] Comment on above: Performed By: #### H S TROP #### [facility] [address] Lymphocytes Auto (Bld) [#/Vo l]Ordered By: Griselda Hastings on 10-07-2024 Lymphocytes (Bld) [#/Vol] Lymphocytes [#/volume] in Blood by Automated count 1.00-4.8 [facility] Lymphocytes/100 WBC Auto (Bl d)Ordered By: Griselda Hastings on 10-07-2024 Lymphocytes/100 WBC (Bld) Lymphocytes/100 leukocytes in Blood by Automated count . [facility] MCH Auto (RBC) [Entitic mass ]Ordered By: Griselda Hastings on 10-07-2024 MCH (RBC) [Entitic mass] MCH [Entitic mass] by Automated count 27.5-35.2 [facility] MCHC Auto (RBC) [Mass/Vol]Or dered By: Griselda Hastings on 10-07-2024 MCHC (RBC) [Mass/Vol] MCHC [Mass/volume] by Automated count 32.5-35.6 [facility] MCV Auto (RBC) [Entitic vol] Ordered By: Griselda Hastings on 10-07-2024 MCV (RBC) [Entitic vol] MCV [Entitic volume] by Automated count 83.5-101 [facility] Monocytes Auto (Bld) [#/Vol] Ordered By: Griselda Hastings on 10-07-2024 Monocytes (Bld) [#/Vol] Automated blood monocyte count 0.0-0.8 [facility] Monocytes/100 WBC Auto (Bld) Ordered By: Griselda Hastings on 10-07-2024 Monocytes/100 WBC (Bld) Automated monocyte % . [facility] Neutrophils Auto (Bld) [#/Vo l]Ordered By: Griselda Hastings on 10-07-2024 Neutrophils (Bld) [#/Vol] Neutrophils [#/volume] in Blood by Automated count 1.8-7.7 [facility] Neutrophils/100 WBC Auto (Bl d)Ordered By: Griselda Hastings on 10-07-2024 Neutrophils/100 WBC (Bld) Automated neutrophil % . [facility] No Panel InformationOrdered By: Griselda Hastings on 10-07-2024 Estimated GFR (CKD-EPI) > 60.0 mL/Min [facility] Creatinine Clearance (Chem N/A [facility] Nucleated erythrocytes [Pres ence] in Blood by Automated countOrdered By: Griselda Hastings on 10-07-2024 Nucleated RBC Auto Ql (Bld) Nucleated erythrocytes [Presence] in Blood by Automated count 0-0.5 [facility] PSA Screen (Yearly Only)on 0 10-07-2024 PSA Screen (Yearly Only) 0.670 ng/mL Normal 0.000-4.00 0 [facility] Comment on above: Result Comment: Santhosh al tumor marker results determined by assays using different manufacturers or methods may not be comparable. [facility] shell machine operator and method: WUT DXI, CHEMILUMINESCENT IMMUNOASSAY. PERFORMED BY: [place] [address] PATHOLOGIST BAKERY HELPER RAKEL LAZARO M.D. Performed By: #### H S TROP #### [address] Platelet mean volume Auto (B ld) [Entitic vol]Ordered By: Griselda Hastings on 10-07-2024 Platelet mean volume (Bld) [Entitic vol] Platelet mean volume [Entitic volume] in Blood by Automated count 6.6-10.1 [facility] Platelets Auto (Bld) [#/Vol] Ordered By: Griselda Hastings on 10-07-2024 Platelets (Bld) [#/Vol] Platelets [#/volume] in Blood by Automated count 150-450 [facility] Potassium [Moles/volume] in Serum or PlasmaOrdered By: Griselda Hastings on 10-07-2024 Potassium [Moles/Vol] Potassium [Moles/v olume] in Serum or Plasma 3.5-5.1 [facility] Prostate specific Ag [Mass/v olume] in Serum or PlasmaOrdered By: Griselda Hastings on 10-07-2024 Prostate specific Ag [Mass/Vol] Prostate specific Ag [Mass/volume] in Serum or Plasma 0.000-4.00 0 [facility] Comment on above: Serial tumor marker results determined by assays using different manufacturers or methods may not be comparable.[facility] shell machine operator and method:THELMA UNICEL DXI, CHEMILUMINESCENT IMMUNOASSAY. Protein [Mass/volume] in Ser um or PlasmaOrdered By: Griselda Hastings on 10-07-2024 Protein [Mass/Vol] Protein [Mass/volume ] in Serum or Plasma Low 6.4-8.9 [facility] RBC Auto (Bld) [#/Vol]Ordere d By: Griselda Hastings on 10-07-2024 RBC (Bld) [#/Vol] Erythrocytes [#/volu me] in Blood by Automated count 3.90-5.60 [facility] Serum or plasma albumin/glob ulin mass ratioOrdered By: Griselda Hastings on 10-07-2024 Albumin/Globulin [Mass ratio] Serum or plasma albumin/globulin mass ratio [facility] Serum or plasma anion gap de terminationOrdered By: Griselda Hastings on 10-07-2024 Anion gap [Moles/Vol] Serum or plasma an ion gap determination 6.0-15.0 [facility] Serum or plasma total choles terol/high density lipoprotein (HDL) cholesterol mass ratOrdered By: Griselda Hastings on 10-07-2024 Cholesterol.total/Chol esterol in HDL [Mass ratio] Serum or plasma total cholesterol/high density lipoprotein (HDL) cholesterol mass rat <5.0 [facility] Sodium [Moles/volume] in Ser um or PlasmaOrdered By: Griselda Hastings on 10-07-2024 Sodium [Moles/Vol] Sodium [Moles/volume ] in Serum or Plasma 136-145 [facility] Thyroid Stimulating Hormoneo n 10-07-2024 TSH Qn 1.03 m[IU]/L Normal 0.45-5.[address] [facility] Comment on above: Result Comment: PERF ORMED BY: [facility] [address] [place] [address] PATHOLOGIST BAKERY HELPER RAKEL LAZARO M.D. Performed By: #### H S TROP #### [facility] [address] Thyrotropin [Units/volume] i n Serum or PlasmaOrdered By: Griselda Hastings on 10-07-2024 TSH Qn Thyrotropin [Units/volume] in Serum or Plasma 0.45-5.33 [facility] Triglyceride [Mass/volume] i n Serum or PlasmaOrdered By: Griselda Hastings on 10-07-2024 Triglyceride [Mass/Vol] Triglyceride [Mass/volume] in Serum or Plasma 0-149 [facility] Comment on above: TRIG ATP III CLASSIF ICATIONTRIG less than 150 mg/dL NormalTRIG 150-199 mg/dL Borderline highTRIG 200-500 mg/dL High TRIG greater than 500 mg/dL Very highStandard traceable to the Center for Disease Conrtrol and Prevention (CDC) test method. Urea nitrogen [Mass/volume] in Serum or PlasmaOrdered By: Griselda Hastings on 10-07-2024 Urea nitrogen [Mass/Vol] Urea nitrogen [Mass/volume] in Serum or Plasma 01-09 [facility] WBC Auto (Bld) [#/Vol]Ordere d By: Griselda Hastings on 10-07-2024 WBC (Bld) [#/Vol] Leukocytes [#/volume ] in Blood by Automated count 4.1-10.5 [facility] Alanine aminotransferase [En zymatic activity/volume] in Serum or PlasmaOrdered By: PROVIDER TEMP on 10-06-2024 ALT [Catalytic activity/Vol] Alanine aminotransferase [Enzymatic activity/volume] in Serum or Plasma [facility] Albumin [Mass/volume] in Ser um or Plasma by Bromocresol green (BCG) dye binding methoOrdered By: PROVIDER TEMP on 10-06-2024 Albumin BCG dye [Mass/Vol] Albumin [Mass/volume] in Serum or Plasma by Bromocresol green (BCG) dye binding metho 3.5-5.7 [facility] Alkaline phosphatase [Enzyma tic activity/volume] in Serum or PlasmaOrdered By: PROVIDER TEMP on 10-06-2024 ALP [Catalytic activity/Vol] Alkaline phosphatase [Enzymatic activity/volume] in Serum or Plasma 34-104 [facility] Appearance of UrineOrdered B y: Manisha Negron on 10-06-2024 Appearance (U) Urine appearance Clear [facility] Aspartate aminotransferase [ Enzymatic activity/volume] in Serum or PlasmaOrdered By: PROVIDER TEMP on 10-06-2024 AST [Catalytic activity/Vol] Aspartate aminotransferase [Enzymatic activity/volume] in Serum or Plasma Low 13-39 [facility] Bacteria [Presence] in Urine by AutomatedOrdered By: Manisha Negron on 10-06-2024 Bacteria Auto Ql (U) Bacteria [Presence] in Urine by Automated None Seen [facility] Basic Metabolic Panelon 04-2 Anion gap [Moles/Vol] 8.5 mmol/L Normal 6.0-15.0 [facility] Comment on above: Performed By: #### L IPASE, BMP, CBC, HEPATIC #### [facility] [address] [place] [id number] [place] Calcium [Mass/Vol] 9.5 mg/dL Normal 8.6-10.3 [facility] Comment on above: Performed By: #### L IPASE, BMP, CBC, HEPATIC #### [facility] [address] [place] [address] [place] Chloride [Moles/Vol] 104 mmol/L Normal 98-107 [facility] Comment on above: Performed By: #### L IPASE, BMP, CBC, HEPATIC #### [facility] [address] [place] [address] [place] CO2 [Moles/Vol] 28.3 mmol/L Normal 21.0-31.0 [facility] Comment on above: Performed By: #### L IPASE, BMP, CBC, HEPATIC #### [facility] [address] [place] [address] [place] Creatinine [Mass/Vol] 0.82 mg/dL Normal 0.70-1.30 [facility] Comment on above: Performed By: #### L IPASE, BMP, CBC, HEPATIC #### [facility] [address] [place] [address] [place] Creatinine Clr Calc Pharmacy 91.52 Normal [facility] Comment on above: Performed By: #### L IPASE, BMP, CBC, HEPATIC #### [facility] [address] [place] [address] [place] GFR/1.73 sq M.predicted MDRD (S/P/Bld) [Vol rate/Area] mL/min/{1.73_m2} Normal [facility] Comment on above: Performed By: #### L IPASE, BMP, CBC, HEPATIC #### [facility] [address] [place] [address] [place] Glucose [Mass/Vol] 86 mg/dL Normal 70-100 [facility] Comment on above: Result Comment: [facility] Glucose Reference Range is dependent on time and content of last meal. Glucose of more than 200 mg/dL in a nonstressed, ambulatory subject supports the diagnosis of Diabetes Mellitus. ADA recommended reference range Performed By: #### L IPASE, BMP, CBC, HEPATIC #### [facility] [address] [place] [address] [place] Potassium [Moles/Vol] 4.8 mmol/L Normal 3.5-5.1 [facility] Comment on above: Performed By: #### L IPASE, BMP, CBC, HEPATIC #### [facility] [address] [place] [address] [place] Sodium [Moles/Vol] 136 mmol/L Normal 136-145 [facility] Comment on above: Performed By: #### L IPASE, BMP, CBC, HEPATIC #### [facility] [address] [place] [address] [place] Urea nitrogen [Mass/Vol] 9 mg/dL Normal 7-25 [facility] Comment on above: Performed By: #### L IPASE, BMP, CBC, HEPATIC #### [facility] [address] [place] [id number] [place] Basophils Auto (Bld) [#/Vol] Ordered By: PROVIDER TEMP on 10-06-2024 Basophils (Bld) [#/Vol] Automated basophil count 0.0-0.2 [facility] Basophils/100 WBC Auto (Bld) Ordered By: PROVIDER TEMP on 10-06-2024 Basophils/100 WBC (Bld) Automated basophil % . [facility] Bilirubin Test strip Ql (U)O rdered By: Manisha Negron on 10-06-2024 Bilirubin Ql (U) Bilirubin.total [Presence] in Urine by Test strip Negative [facility] Bilirubin.direct [Mass/volum e] in Serum or PlasmaOrdered By: PROVIDER TEMP on 10-06-2024 Bilirubin.direct [Mass/Vol] Bilirubin.direct [Mass/volume] in Serum or Plasma 0.03-0.18 [facility] Bilirubin.total [Mass/volume ] in Serum or PlasmaOrdered By: PROVIDER TEMP on 10-06-2024 Bilirubin [Mass/Vol] Bilirubin.total [Mass/volume] in Serum or Plasma 0.3-1.0 [facility] CT abdomen pelvis w conon CT abdomen pelvis w con [facility] [place] [address] CT Scan Report Signed Patient: Shantel Melendez MR#: [id number] : 1960 Acct:[id number] Age/Sex: 63 / M ADM Date: 10/06/24 Loc: ER Room: Type: [facility] ER Attending Dr: Copies to: Manisha Negron [...] Dorothy Eubanks M.D.10/06/2024 4:08 PM Dictation Location: [place] [address] Transcribed By: [facility] 10/06/24 1608 Dictated By: Dorothy Eubanks MD 10/06/24 1556 Signed By: 10/06/24 1608 Normal [facility] CT soft tissue neck w jc 10-06-2024 CT soft tissue neck w con [facility] [place] [address] CT Scan Report Signed Patient: Shantel Melendez MR#: [id number] : 1960 Acct:[id number] Age/Sex: 63 / M ADM Date: 10/06/24 Loc: ER Room: Type: [facility] ER Attending Dr: Copies to: Manisha Negron [...] Dorothy Eubanks M.D.10/06/2024 3:56 PM Dictation Location: [place] [address] Transcribed By: [facility] 10/06/24 1556 Dictated By: Dorothy Eubanks MD 10/06/24 1551 Signed By: 10/06/24 1556 Normal [facility] Calcium [Mass/volume] in Ser um or PlasmaOrdered By: PROVIDER TEMP on 10-06-2024 Calcium [Mass/Vol] Calcium [Mass/volume ] in Serum or Plasma 8.6-10.3 [facility] Carbon dioxide, total [Moles /volume] in Serum or PlasmaOrdered By: PROVIDER TEMP on 10-06-2024 CO2 [Moles/Vol] Carbon dioxide, tota l [Moles/volume] in Serum or Plasma 21.0-31.0 [facility] Chloride [Moles/volume] in S r[place] or PlasmaOrdered By: PROVIDER TEMP on 10-06-2024 Chloride [Moles/Vol] Chloride [Moles/vol ume] in Serum or Plasma 98-107 [facility] Color Auto (U)Ordered By: Braeden Negron on 10-06-2024 Color (U) Color of Urine by Auto Yellow Fi [facility] Complete Blood Count Auto Di ffon 10-06-2024 Basophils (Bld) [#/Vol] 0.1 10*3/uL Normal 0.0-0.2 [facility] Comment on above: Result Comment: PERF ORMED BY: [place] [address] PATHOLOGIST BAKERY HELPER RAKEL LAZARO M.D. Performed By: #### L IPASE, BMP, CBC, HEPATIC #### [address] Basophils/100 WBC (Bld) 1.1 % Normal . [facility] Comment on above: Performed By: #### L IPASE, BMP, CBC, HEPATIC #### [address] Eosinophils (Bld) [#/Vol] 0.1 10*3/uL Normal 0.0-0.45 [facility] Comment on above: Performed By: #### L IPASE, BMP, CBC, HEPATIC #### [address] Eosinophils/100 WBC (Bld) 0.9 % Normal . [facility] Comment on above: Performed By: #### L IPASE, BMP, CBC, HEPATIC #### [address] Erythrocyte distribution width (RBC) [Ratio] 13.7 % Normal 12.0-14.8 [facility] Comment on above: Performed By: #### L IPASE, BMP, CBC, HEPATIC #### [address] Hematocrit (Bld) [Volume fraction] 37.0 % Low 38.8-50.0 [facility] Comment on above: Performed By: #### L IPASE, BMP, CBC, HEPATIC #### [address] Hemoglobin (Bld) [Mass/Vol] 12.8 g/dL Low 13.0-17.0 [facility] Comment on above: Performed By: #### L IPASE, BMP, CBC, HEPATIC #### [address] Lymphocytes (Bld) [#/Vol] 2.0 10*3/uL Normal 1.00-4.8 [facility] Comment on above: Performed By: #### L IPASE, BMP, CBC, HEPATIC #### [address] Lymphocytes/100 WBC (Bld) 28.2 % Normal . [facility] Comment on above: Performed By: #### L IPASE, BMP, CBC, HEPATIC #### [address] MCH (RBC) [Entitic mass] 32.0 pg Normal 27.5-35.2 [facility] Comment on above: Performed By: #### L IPASE, BMP, CBC, HEPATIC #### [address] MCV (RBC) [Entitic vol] 92.6 fL Normal 83.5-101 [facility] Comment on above: Performed By: #### L IPASE, BMP, CBC, HEPATIC #### [address] Mean Corpuscular HGB Conc 34.6 g/dL Normal 32.5-35.6 [facility] Comment on above: Performed By: #### L IPASE, BMP, CBC, HEPATIC #### [address] Monocytes (Bld) [#/Vol] 0.4 10*3/uL Normal 0.0-0.8 [facility] Comment on above: Performed By: #### L IPASE, BMP, CBC, HEPATIC #### [address] Monocytes/100 WBC (Bld) 17.04 % Normal 0.00-20.00 [facility] Comment on above: Performed By: #### L IPASE, BMP, CBC, HEPATIC #### [place] [address] [place] Monocytes/100 WBC (Bld) 5.4 % Normal . [facility] Comment on above: Performed By: #### L IPASE, BMP, CBC, HEPATIC #### [address] Neutrophils (Bld) [#/Vol] 4.7 10*3/uL Normal 1.8-7.7 [facility] Comment on above: Performed By: #### L IPASE, BMP, CBC, HEPATIC #### [address] Neutrophils/100 WBC (Bld) 64.4 % Normal . [facility] Comment on above: Performed By: #### L IPASE, BMP, CBC, HEPATIC #### [address] NRBC% 0.1 /100{WBC} Normal 0-0.5 [facility] Comment on above: Performed By: #### L IPASE, BMP, CBC, HEPATIC #### [address] Platelet mean volume (Bld) [Entitic vol] 8.4 fL Normal 6.6-10.[address] [facility] Comment on above: Performed By: #### L IPASE, BMP, CBC, HEPATIC #### [place] [address] [place] Platelets (Bld) [#/Vol] 357 10*3/uL Normal 150-450 [facility] Comment on above: Performed By: #### L IPASE, BMP, CBC, HEPATIC #### [facility] [address] [place] [address] [place] RBC (Bld) [#/Vol] 3.99 10*6/uL Normal 3.90-5.60 [facility] Comment on above: Performed By: #### L IPASE, BMP, CBC, HEPATIC #### [place] [address] [place] WBC (Bld) [#/Vol] 7.2 10*3/uL Normal 4.1-10.5 [facility] Comment on above: Performed By: #### L IPASE, BMP, CBC, HEPATIC #### [facility] [address] [place] [address] [place] Creatinine [Mass/volume] in Serum or PlasmaOrdered By: PROVIDER TEMP on 10-06-2024 Creatinine [Mass/Vol] Creatinine [Mass/v olume] in Serum or Plasma 0.70-1.30 [facility] Dipstick and Microscopicon 0 10-06-2024 Appearance (U) Clear Normal Clear [facility] Comment on above: Order Comment: Name Collection Type:: Clean-Voided Midstream Performed By: #### L IPASE, BMP, CBC, HEPATIC #### [facility] [address] [place] [address] [place] Bacteria,Urine None Seen Normal None Seen [facility] Comment on above: Order Comment: Name Collection Type:: Clean-Voided Midstream Performed By: #### L IPASE, BMP, CBC, HEPATIC #### [facility] [address] [place] [address] [place] Bilirubin,Urine Negative Normal Negative [facility] Comment on above: Order Comment: Name Collection Type:: Clean-Voided Midstream Performed By: #### L IPASE, BMP, CBC, HEPATIC #### [facility] [address] [place] [address] [place] Color (U) Yellow Normal Yellow [facility] Comment on above: Order Comment: Name Collection Type:: Clean-Voided Midstream Performed By: #### L IPASE, BMP, CBC, HEPATIC #### [facility] [address] [place] [address] [place] Glucose Ql (U) Normal Normal Normal [facility] Comment on above: Order Comment: Name Collection Type:: Clean-Voided Midstream Performed By: #### L IPASE, BMP, CBC, HEPATIC #### [facility] [address] [place] [id number] [place] Hyaline Casts,Urine None Normal 0-8 [facility] Comment on above: Order Comment: Name Collection Type:: Clean-Voided Midstream Performed By: #### L IPASE, BMP, CBC, HEPATIC #### [address] Ketones Ql (U) Negative Normal Negative [facility] Comment on above: Order Comment: Name Collection Type:: Clean-Voided Midstream Performed By: #### L IPASE, BMP, CBC, HEPATIC #### [place] [id number] [facility] Leukocyte esterase Test strip Ql (U) Negative Normal Negative [facility] Comment on above: Order Comment: Name Collection Type:: Clean-Voided Midstream Performed By: #### L IPASE, BMP, CBC, HEPATIC #### [place] [address] [place] Mucus,Urine Rare Normal [facility] Comment on above: Order Comment: Name Collection Type:: Clean-Voided Midstream Result Comment: PERF ORMED BY: [place] [address] PATHOLOGIST BAKERY HELPER RAKEL LAZARO M.D. Performed By: #### L IPASE, BMP, CBC, HEPATIC #### [place] [address] [place] Nitrite,Urine Negative Normal Negative [facility] Comment on above: Order Comment: Name Collection Type:: Clean-Voided Midstream Performed By: #### L IPASE, BMP, CBC, HEPATIC #### [place] [id number] [place] Occult Blood,Urine Trace High Negative [facility] Comment on above: Order Comment: Name Collection Type:: Clean-Voided Midstream Result Comment: PERF ORMED BY: [place] [address] PATHOLOGIST BAKERY HELPER RAKEL LAZARO M.D. Performed By: #### L IPASE, BMP, CBC, HEPATIC #### [place] [address] [place] pH (U) 5.5 [pH] Normal 5.0-9.0 [facility] Comment on above: Order Comment: Name Collection Type:: Clean-Voided Midstream Performed By: #### L IPASE, BMP, CBC, HEPATIC #### [address] Protein,Urine Negative Normal Negative [facility] Comment on above: Order Comment: Name Collection Type:: Clean-Voided Midstream Performed By: #### L IPASE, BMP, CBC, HEPATIC #### [address] RBC,Urine 1-2 Normal 0-4 [facility] Comment on above: Order Comment: Name Collection Type:: Clean-Voided Midstream Performed By: #### L IPASE, BMP, CBC, HEPATIC #### [address] Specificy [place],Urine >1.050 High 1.001-1.03 0 [facility] Comment on above: Order Comment: Name Collection Type:: Clean-Voided Midstream Performed By: #### L IPASE, BMP, CBC, HEPATIC #### [address] Squamous Epithelial Cell,Urine 1-2 Normal 0-2 [facility] Comment on above: Order Comment: Name Collection Type:: Clean-Voided Midstream Performed By: #### L IPASE, BMP, CBC, HEPATIC #### [place] [address] [place] Urobilinogen,Urine Normal Normal Normal [facility] Comment on above: Order Comment: Name Collection Type:: Clean-Voided Midstream Performed By: #### L IPASE, BMP, CBC, HEPATIC #### [place] [address] [place] WBC,Urine 1-2 Normal 0-4 [facility] Comment on above: Order Comment: Name Collection Type:: Clean-Voided Midstream Performed By: #### L IPASE, BMP, CBC, HEPATIC #### [place] [id number] [facility] ECG 12 lead ECGon 10-06-2024 ECG 12 lead ECG [facility] Main [place] [address] [place] [address] Electrocardiograph Report Signed Patient: Shantel Melendez MR#: [id number] : 1960 Acct:[id number] Age/Sex: 63 / M ADM Date: 10/06/24 Loc: ER Room: Type: [facility] ER Attending Dr: Ordering Provider: Manisha eNgron APRN Date of Service: 10/06/24 ECG/ECG 12 [...] now present Confirmed by Duke Kaufman DO ([id number]) on 10/06/2024 7:36:01 PM Referred By: Electronically Signed By: Duke Kaufman DO Transcribed By: MUS Signed By Duke Kaufman DO 1935 Normal [facility] Eosinophils Auto (Bld) [#/Vo l]Ordered By: PROVIDER TEMP on 10-06-2024 Eosinophils (Bld) [#/Vol] Automated eosinophil count 0.0-0.45 [facility] Eosinophils/100 WBC Auto (Bl d)Ordered By: PROVIDER TEMP on 10-06-2024 Eosinophils/100 WBC (Bld) Automated eosinophil % . [facility] Epithelial cells.squamous [# /area] in Urine sediment by Automated countOrdered By: Manisha Negron on 10-06-2024 Epithelial cells.squamous Auto (Urine sed) [#/Area] Epithelial cells.squamous [#/area] in Urine sediment by Automated count 0-2 [facility] Erythrocyte distribution wid th Auto (RBC) [Ratio]Ordered By: PROVIDER TEMP on 10-06-2024 Erythrocyte distribution width (RBC) [Ratio] Erythrocyte distribution width [Ratio] by Automated count 12.0-14.8 [facility] Erythrocytes [#/area] in Uri ne sediment by Automated countOrdered By: Manisha Negron on 10-06-2024 RBC Auto (Urine sed) [#/Area] Erythrocytes [#/area] in Urine sediment by Automated count 0-4 [facility] Globulin Calc (S) [Mass/Vol] Ordered By: PROVIDER TEMP on 10-06-2024 Globulin (S) [Mass/Vol] Serum globulin measurement by calculation (mass/volume) [facility] Glucose [Mass/volume] in Ser um or PlasmaOrdered By: PROVIDER TEMP on 10-06-2024 Glucose [Mass/Vol] Glucose [Mass/volume ] in Serum or Plasma 70-100 [facility] Comment on above: ADA recommended refe [...] [Mass/volume] in Urine by Test strip Normal [facility] Hematocrit Auto (Bld) [Volum e fraction]Ordered By: PROVIDER TEMP on 10-06-2024 Hematocrit (Bld) [Volume fraction] Hematocrit [Volume Fraction] of Blood by Automated count Low 38.8-50.0 [facility] Hemoglobin Test strip Ql (U) Ordered By: Manisha Negron on 10-06-2024 Hemoglobin Ql (U) Hemoglobin [Presence ] in Urine by Test strip High Negative [facility] Hemoglobin [Mass/volume] in BloodOrdered By: PROVIDER TEMP on 10-06-2024 Hemoglobin (Bld) [Mass/Vol] Hemoglobin [Mass/volume] in Blood Low 13.0-17.0 [facility] Hepatic Panelon 10-06-2024 Albumin [Mass/Vol] 3.6 g/dL Normal 3.5-5.7 [facility] Comment on above: Performed By: #### L CHIQUI BMP, CBC, HEPATIC #### [facility] [address] [place] [address] [place] Albumin/Globulin [Mass ratio] 1.4 {ratio} Normal [facility] Comment on above: Performed By: #### L IPASE, BMP, CBC, HEPATIC #### [facility] [address] [place] [id number] [facility] ALP [Catalytic activity/Vol] 63 U/L Normal 34-104 [facility] Comment on above: Performed By: #### L IPASE, BMP, CBC, HEPATIC #### [facility] [address] ALT [Catalytic activity/Vol] 7 U/L Normal 7-52 [facility] Comment on above: Performed By: #### L IPASE, BMP, CBC, HEPATIC #### [place] [address] [place] AST [Catalytic activity/Vol] 8 U/L Low 13-39 [facility] Comment on above: Performed By: #### L IPASE, BMP, CBC, HEPATIC #### [facility] [address] [place] [address] [place] Bilirubin [Mass/Vol] 0.6 mg/dL Normal 0.3-1.0 [facility] Comment on above: Performed By: #### L IPASE, BMP, CBC, HEPATIC #### [facility] [address] [place] [address] [place] Bilirubin,Indirect 0.5 mg/dL Normal [facility] Comment on above: Performed By: #### L IPASE, BMP, CBC, HEPATIC #### [facility] [address] [place] [address] [place] Bilirubin.indirect [Mass/Vol] 0.10 mg/dL Normal 0.03-0.18 [facility] Comment on above: Performed By: #### L IPASE, BMP, CBC, HEPATIC #### [facility] [address] [place] [address] [place] Globulin (S) [Mass/Vol] 2.5 g/dL Normal [facility] Comment on above: Performed By: #### L IPASE, BMP, CBC, HEPATIC #### [facility] [address] Protein [Mass/Vol] 6.1 g/dL Low 6.4-8.9 [facility] Comment on above: Performed By: #### L IPASE, BMP, CBC, HEPATIC #### [facility] [address] Hyaline casts [#/area] in Ur ine sediment by Automated countOrdered By: Manisha Negron on 10-06-2024 Hyaline casts Auto (Urine sed) [#/Area] Hyaline casts [#/area] in Urine sediment by Automated count 0-8 [facility] Ketones Test strip Ql (U)Ord ered By: Manisha Negron on 10-06-2024 Ketones Ql (U) Ketones [Presence] i n Urine by Test strip Negative [facility] Leukocyte esterase [Presence ] in Urine by Test stripOrdered By: Manisha Negron on 10-06-2024 Leukocyte esterase Test strip Ql (U) Leukocyte esterase [Presence] in Urine by Test strip Negative [facility] Leukocytes [#/area] in Urine sediment by Automated countOrdered By: Manisha Negron on 10-06-2024 WBC Auto (Urine sed) [#/Area] Leukocytes [#/area] in Urine sediment by Automated count 0-4 [facility] Leukocytes [#/volume] correc mone for nucleated erythrocytes in Blood by Automated counOrdered By: PROVIDER TEMP on 10-06-2024 WBC corrected for nucl RBC Auto (Bld) [#/Vol] Leukocytes [#/volume] corrected for nucleated erythrocytes in Blood by Automated coun 4.1-10.5 [facility] Lipaseon 10-06-2024 Lipase [Catalytic activity/Vol] 11.0 U/L Normal 11.0-82.0 [facility] Comment on above: Result Comment: PERF ORMED BY: [facility] [address] [place] [address] PATHOLOGIST BAKERY HELPER RAKEL LAZARO M.D. Performed By: #### L IPASE, BMP, CBC, HEPATIC #### [facility] [address] [place] [id number] [facility] Lipase [Enzymatic activity/v olume] in Serum or PlasmaOrdered By: PROVIDER TEMP on 10-06-2024 Lipase [Catalytic activity/Vol] Lipase [Enzymatic activity/volume] in Serum or Plasma 11.0-82.0 [facility] Lymphocytes Auto (Bld) [#/Vo l]Ordered By: PROVIDER TEMP on 10-06-2024 Lymphocytes (Bld) [#/Vol] Lymphocytes [#/volume] in Blood by Automated count 1.00-4.8 [facility] Lymphocytes/100 WBC Auto (Bl d)Ordered By: PROVIDER TEMP on 10-06-2024 Lymphocytes/100 WBC (Bld) Lymphocytes/100 leukocytes in Blood by Automated count . [facility] MCH Auto (RBC) [Entitic mass ]Ordered By: PROVIDER TEMP on 10-06-2024 MCH (RBC) [Entitic mass] MCH [Entitic mass] by Automated count 27.5-35.2 [facility] MCHC Auto (RBC) [Mass/Vol]Or dered By: PROVIDER TEMP on 10-06-2024 MCHC (RBC) [Mass/Vol] MCHC [Mass/volume] by Automated count 32.5-35.6 [facility] MCV Auto (RBC) [Entitic vol] Ordered By: PROVIDER TEMP on 10-06-2024 MCV (RBC) [Entitic vol] MCV [Entitic volume] by Automated count 83.5-101 [facility] Monocyte distribution width [Entitic volume] in Blood by AutomatedOrdered By: PROVIDER TEMP on 10-06-2024 Monocyte distribution width Auto (Bld) [Entitic vol] Monocyte distribution width [Entitic volume] in Blood by Automated 0.00-20.00 [facility] Monocytes Auto (Bld) [#/Vol] Ordered By: PROVIDER TEMP on 10-06-2024 Monocytes (Bld) [#/Vol] Automated blood monocyte count 0.0-0.8 [facility] Monocytes/100 WBC Auto (Bld) Ordered By: PROVIDER TEMP on 10-06-2024 Monocytes/100 WBC (Bld) Automated monocyte % . [facility] Mucus [Presence] in Urine by AutomatedOrdered By: Manisha Negron on 10-06-2024 Mucus Auto Ql (U) Mucus [Presence] in Urine by Automated [facility] Neutrophils Auto (Bld) [#/Vo l]Ordered By: PROVIDER TEMP on 10-06-2024 Neutrophils (Bld) [#/Vol] Neutrophils [#/volume] in Blood by Automated count 1.8-7.7 [facility] Neutrophils/100 WBC Auto (Bl d)Ordered By: PROVIDER TEMP on 10-06-2024 Neutrophils/100 WBC (Bld) Automated neutrophil % . [facility] Nitrite Test strip Ql (U)Ord ered By: Manisha Negron on 10-06-2024 Nitrite Ql (U) Nitrite [Presence] i n Urine by Test strip Negative [facility] No Panel InformationOrdered By: PROVIDER TEMP on 10-06-2024 Estimated GFR (CKD-EPI) > 60.0 mL/Min [facility] Creatinine Clearance (Chem 91.52 [facility] Nucleated erythrocytes [Pres ence] in Blood by Automated countOrdered By: PROVIDER TEMP on 10-06-2024 Nucleated RBC Auto Ql (Bld) Nucleated erythrocytes [Presence] in Blood by Automated count 0-0.5 [facility] Platelet mean volume Auto (B ld) [Entitic vol]Ordered By: PROVIDER TEMP on 10-06-2024 Platelet mean volume (Bld) [Entitic vol] Platelet mean volume [Entitic volume] in Blood by Automated count 6.6-10.1 [facility] Platelets Auto (Bld) [#/Vol] Ordered By: PROVIDER TEMP on 10-06-2024 Platelets (Bld) [#/Vol] Platelets [#/volume] in Blood by Automated count 150-450 [facility] Potassium [Moles/volume] in Serum or PlasmaOrdered By: PROVIDER TEMP on 10-06-2024 Potassium [Moles/Vol] Potassium [Moles/v olume] in Serum or Plasma 3.5-5.1 [facility] Protein Test strip (U) [Mass /Vol]Ordered By: Manisha Negron on 10-06-2024 Protein (U) [Mass/Vol] Protein [Mass/vol ume] in Urine by Test strip Negative [facility] Protein [Mass/volume] in Ser um or PlasmaOrdered By: PROVIDER TEMP on 10-06-2024 Protein [Mass/Vol] Protein [Mass/volume ] in Serum or Plasma Low 6.4-8.9 [facility] RBC Auto (Bld) [#/Vol]Ordere d By: PROVIDER TEMP on 10-06-2024 RBC (Bld) [#/Vol] Erythrocytes [#/volu me] in Blood by Automated count 3.90-5.60 [facility] Serum or plasma albumin/glob ulin mass ratioOrdered By: PROVIDER TEMP on 10-06-2024 Albumin/Globulin [Mass ratio] Serum or plasma albumin/globulin mass ratio [facility] Serum or plasma anion gap de terminationOrdered By: PROVIDER TEMP on 10-06-2024 Anion gap [Moles/Vol] Serum or plasma an ion gap determination 6.0-15.0 [facility] Serum or plasma non-glucuron idated bilirubin measurement (mass/volume)Ordered By: PROVIDER TEMP on 10-06-2024 Bilirubin.indirect [Mass/Vol] Serum or plasma non-glucuronidated bilirubin measurement (mass/volume) [facility] Sodium [Moles/volume] in Ser um or PlasmaOrdered By: PROVIDER TEMP on 10-06-2024 Sodium [Moles/Vol] Sodium [Moles/volume ] in Serum or Plasma 136-145 [facility] Specific gravity Test strip (U) [Rel density]Ordered By: Manisha Negron on 10-06-2024 Specific gravity (U) [Rel density] Specific gravity of Urine by Test strip High 1.001-1.03 0 [facility] Urea nitrogen [Mass/volume] in Serum or PlasmaOrdered By: PROVIDER TEMP on 10-06-2024 Urea nitrogen [Mass/Vol] Urea nitrogen [Mass/volume] in Serum or Plasma 7-25 [facility] Urobilinogen Test strip (U) [Mass/Vol]Ordered By: Manisha Negron on 10-06-2024 Urobilinogen (U) [Mass/Vol] Urobilinogen [Mass/volume] in Urine by Test strip Normal [facility] WBC Auto (Bld) [#/Vol]Ordere d By: PROVIDER TEMP on 10-06-2024 WBC (Bld) [#/Vol] Leukocytes [#/volume ] in Blood by Automated count 4.1-10.5 [facility] pH Test strip (U)Ordered By: Manisha Negron on 10-06-2024 pH (U) pH of Urine by Test strip 5.0-9.0 [facility] B-Type Natriuretic Peptideon 09-20-2024 Natriuretic peptide B (Bld) [Mass/Vol] 43.0 pg/mL Normal 5-100 [facility] Comment on above: Result Comment: PERF ORMED BY: [place] [address] PATHOLOGIST BAKERY HELPER RAKEL LAZARO M.D. Performed By: #### H S TROP #### [address] Basic Metabolic Panelon Anion gap [Moles/Vol] 11.2 mmol/L Normal 6.0-15.0 [facility] Comment on above: Performed By: #### C BC, BNP, BMP, HS TROP #### [facility] [address] [place] [address] [place] Calcium [Mass/Vol] 9.3 mg/dL Normal 8.6-10.3 [facility] Comment on above: Performed By: #### C BC, BNP, BMP, HS TROP #### [facility] [address] [place] [address] [place] Chloride [Moles/Vol] 100 mmol/L Normal 98-107 [facility] Comment on above: Performed By: #### C BC, BNP, BMP, HS TROP #### [facility] [address] [place] [address] [place] CO2 [Moles/Vol] 26.0 mmol/L Normal 21.0-31.0 [facility] Comment on above: Performed By: #### C BC, BNP, BMP, HS TROP #### [place] [address] [place] Creatinine [Mass/Vol] 0.91 mg/dL Normal 0.70-1.30 [facility] Comment on above: Performed By: #### C BC, BNP, BMP, HS TROP #### [facility] [address] [place] [address] [place] Creatinine Clr Calc Pharmacy 82.47 Normal [facility] Comment on above: Result Comment: PERF ORMED BY: [place] [address] PATHOLOGIST BAKERY HELPER RAKEL LAZARO M.D. Performed By: #### C BC, BNP, BMP, HS TROP #### [place] [address] [place] GFR/1.73 sq M.predicted MDRD (S/P/Bld) [Vol rate/Area] mL/min/{1.73_m2} Normal [facility] Comment on above: Performed By: #### C BC, BNP, BMP, HS TROP #### [place] [address] [place] Glucose [Mass/Vol] 100 mg/dL Normal 70-100 [facility] Comment on above: Result Comment: [place] Glucose Reference Range is dependent on time and content of last meal. Glucose of more than 200 mg/dL in a nonstressed, ambulatory subject supports the diagnosis of Diabetes Mellitus. ADA recommended reference range Performed By: #### C BC, BNP, BMP, HS TROP #### [place] [address] [place] Potassium [Moles/Vol] 4.2 mmol/L Normal 3.5-5.1 [facility] Comment on above: Performed By: #### C BC, BNP, BMP, HS TROP #### [place] [address] [place] Sodium [Moles/Vol] 133 mmol/L Low 136-145 [facility] Comment on above: Performed By: #### C BC, BNP, BMP, HS TROP #### [facility] [address] [place] [address] [place] Urea nitrogen [Mass/Vol] 18 mg/dL Normal 7-25 [facility] Comment on above: Performed By: #### C BC, BNP, BMP, HS TROP #### [facility] [address] Basophils Auto (Bld) [#/Vol] Ordered By: Daisy Paul on 09-20-2024 Basophils (Bld) [#/Vol] Automated basophil count 0.0-0.2 [facility] Basophils/100 WBC Auto (Bld) Ordered By: Daisy Paul on 09-20-2024 Basophils/100 WBC (Bld) Automated basophil % . [facility] BioFire Not Detectedon 09-20 BioFire Not Detected Not detected Normal Not Detecte [facility] Comment on above: Result Comment: This is a duplicate RP2.1 COVID (PCR) result to be used for statistical tracking purpose only. PERFORMED BY: [address] [place] [address] PATHOLOGIST BAKERY HELPER RAKEL LAZARO M.D. Performed By: #### H S TROP #### [address] COVID-19 Detected/Not Detect edOrdered By: Daisy Paul on 09-20-2024 SARS-CoV-2 (COVID-19) RNA JER+non-probe Ql (Nph) Not detected Not Detecte [facility] Comment on above: This is a duplicate RP2.1 COVID (PCR) result to be used for statistical tracking purpose only. Calcium [Mass/volume] in Ser um or PlasmaOrdered By: Daisy Paul on 09-20-2024 Calcium [Mass/Vol] Calcium [Mass/volume ] in Serum or Plasma 8.6-10.3 [facility] Carbon dioxide, total [Moles /volume] in Serum or PlasmaOrdered By: Daisy Paul on 09-20-2024 CO2 [Moles/Vol] Carbon dioxide, tota l [Moles/volume] in Serum or Plasma 21.0-31.0 [facility] Chloride [Moles/volume] in [place] or PlasmaOrdered By: Daisy Paul on 09-20-2024 Chloride [Moles/Vol] Chloride [Moles/vol ume] in Serum or Plasma 98-107 [facility] Complete Blood Count Auto Di ffon 09-20-2024 Basophils (Bld) [#/Vol] 0.0 10*3/uL Normal 0.0-0.2 [facility] Comment on above: Result Comment: PERF ORMED BY: [place] [address] PATHOLOGIST BAKERY HELPER RAKEL LAZARO M.D. Performed By: #### C BC, BNP, BMP, HS TROP #### [address] Basophils/100 WBC (Bld) 0.5 % Normal . [facility] Comment on above: Performed By: #### C BC, BNP, BMP, HS TROP #### [address] Eosinophils (Bld) [#/Vol] 0.0 10*3/uL Normal 0.0-0.45 [facility] Comment on above: Performed By: #### C BC, BNP, BMP, HS TROP #### [address] Eosinophils/100 WBC (Bld) 0.1 % Normal . [facility] Comment on above: Performed By: #### C BC, BNP, BMP, HS TROP #### [address] Erythrocyte distribution width (RBC) [Ratio] 13.9 % Normal 12.0-14.8 [facility] Comment on above: Performed By: #### C BC, BNP, BMP, HS TROP #### [address] Hematocrit (Bld) [Volume fraction] 41.1 % Normal 38.8-50.0 [facility] Comment on above: Performed By: #### C BC, BNP, BMP, HS TROP #### [address] Hemoglobin (Bld) [Mass/Vol] 14.1 g/dL Normal 13.0-17.0 [facility] Comment on above: Performed By: #### C BC, BNP, BMP, HS TROP #### [address] Lymphocytes (Bld) [#/Vol] 1.1 10*3/uL Normal 1.00-4.8 [facility] Comment on above: Performed By: #### C BC, BNP, BMP, HS TROP #### [address] Lymphocytes/100 WBC (Bld) 11.5 % Normal . [facility] Comment on above: Performed By: #### C BC, BNP, BMP, HS TROP #### [address] MCH (RBC) [Entitic mass] 32.1 pg Normal 27.5-35.2 [facility] Comment on above: Performed By: #### C BC, BNP, BMP, HS TROP #### [address] MCV (RBC) [Entitic vol] 93.6 fL Normal 83.5-101 [facility] Comment on above: Performed By: #### C BC, BNP, BMP, HS TROP #### [address] Mean Corpuscular HGB Conc 34.3 g/dL Normal 32.5-35.6 [facility] Comment on above: Performed By: #### C BC, BNP, BMP, HS TROP #### [address] Monocytes (Bld) [#/Vol] 0.5 10*3/uL Normal 0.0-0.8 [facility] Comment on above: Performed By: #### C BC, BNP, BMP, HS TROP #### [address] Monocytes/100 WBC (Bld) 23.57 % High 0.00-20.00 [facility] Comment on above: Result Comment: For adults in ED, MDW > 20.0 may be associated with a higher risk of sepsis during the first 12 hrs of hospital admission Performed By: #### C BC, BNP, BMP, HS TROP #### [place] [address] [place] Monocytes/100 WBC (Bld) 5.4 % Normal . [facility] Comment on above: Performed By: #### C BC, BNP, BMP, HS TROP #### [address] Neutrophils (Bld) [#/Vol] 8.1 10*3/uL High 1.8-7.7 [facility] Comment on above: Performed By: #### C BC, BNP, BMP, HS TROP #### [address] Neutrophils/100 WBC (Bld) 82.5 % Normal . [facility] Comment on above: Performed By: #### C BC, BNP, BMP, HS TROP #### [address] NRBC% 0.1 /100{WBC} Normal 0-0.5 [facility] Comment on above: Performed By: #### C BC, BNP, BMP, HS TROP #### [address] Platelet mean volume (Bld) [Entitic vol] 8.9 fL Normal 6.6-10.[address] [facility] Comment on above: Performed By: #### C BC, BNP, BMP, HS TROP #### [place] [address] [place] Platelets (Bld) [#/Vol] 215 10*3/uL Normal 150-450 [facility] Comment on above: Performed By: #### C BC, BNP, BMP, HS TROP #### [place] [address] [place] RBC (Bld) [#/Vol] 4.39 10*6/uL Normal 3.90-5.60 [facility] Comment on above: Performed By: #### C BC, BNP, BMP, HS TROP #### [place] [id number] [place] WBC (Bld) [#/Vol] 9.8 10*3/uL Normal 4.1-10.5 [facility] Comment on above: Performed By: #### C BC, BNP, BMP, HS TROP #### [address] Creatinine [Mass/volume] in Serum or PlasmaOrdered By: Daisy Paul on 09-20-2024 Creatinine [Mass/Vol] Creatinine [Mass/v olume] in Serum or Plasma 0.70-1.30 [facility] ECG 12 lead ECGon 09-20-2024 ECG 12 lead ECG [facility] [place] [address] [place] [address] Electrocardiograph Report Signed Patient: Shantel Melendez MR#: [id number] : 1960 Acct:[id number] Age/Sex: 63 / M ADM Date: 09/20/24 Loc: ER Room: Type: [facility] ER Attending Dr: Ordering Provider: Daisy [...] Nonspecific T wave abnormality Confirmed by Daisy Pual MD ([id number]) on 09/20/2024 7:46:03 PM Referred By: Electronically Signed By: Daisy Paul MD Transcribed By: MUS Signed By Daisy Paul MD 11/09 Normal [facility] Eosinophils Auto (Bld) [#/Vo l]Ordered By: Daisy Paul on 09-20-2024 Eosinophils (Bld) [#/Vol] Automated eosinophil count 0.0-0.45 [facility] Eosinophils/100 WBC Auto (Bl d)Ordered By: Daisy Paul on 09-20-2024 Eosinophils/100 WBC (Bld) Automated eosinophil % . [facility] [facility] Erythrocyte distribution wid th Auto (RBC) [Ratio]Ordered By: Daisy Paul on 09-20-2024 Erythrocyte distribution width (RBC) [Ratio] Erythrocyte distribution width [Ratio] by Automated count 12.0-14.8 [facility] Glucose [Mass/volume] in Ser um or PlasmaOrdered By: Daisy Paul on 09-20-2024 Glucose [Mass/Vol] Glucose [Mass/volume ] in Serum or Plasma 70-100 [facility] Comment on above: ADA recommended refe rence rangeRandom Glucose Reference Range is dependent on time and content of last meal. Glucose of more than 200 mg/dL in a nonstressed, ambulatory subject supports the diagnosis of Diabetes Mellitus. Hematocrit Auto (Bld) [Volum e fraction]Ordered By: Daisy Paul on 09-20-2024 Hematocrit (Bld) [Volume fraction] Hematocrit [Volume Fraction] of Blood by Automated count 38.8-50.0 [facility] Hemoglobin [Mass/volume] in BloodOrdered By: Daisy Paul on 09-20-2024 Hemoglobin (Bld) [Mass/Vol] Hemoglobin [Mass/volume] in Blood 13.0-17.0 [facility] Leukocytes [#/volume] correc mone for nucleated erythrocytes in Blood by Automated counOrdered By: Daisy Paul on 09-20-2024 WBC corrected for nucl RBC Auto (Bld) [#/Vol] Leukocytes [#/volume] corrected for nucleated erythrocytes in Blood by Automated coun 4.1-10.5 [facility] Lymphocytes Auto (Bld) [#/Vo l]Ordered By: Daisy Paul on 09-20-2024 Lymphocytes (Bld) [#/Vol] Lymphocytes [#/volume] in Blood by Automated count 1.00-4.8 [facility] Lymphocytes/100 WBC Auto (Bl d)Ordered By: Daisy Paul on 09-20-2024 Lymphocytes/100 WBC (Bld) Lymphocytes/100 leukocytes in Blood by Automated count . [facility] MCH Auto (RBC) [Entitic mass ]Ordered By: Daisy Paul on 09-20-2024 MCH (RBC) [Entitic mass] MCH [Entitic mass] by Automated count 27.5-35.2 [facility] MCHC Auto (RBC) [Mass/Vol]Or dered By: Daisy Paul on 09-20-2024 MCHC (RBC) [Mass/Vol] MCHC [Mass/volume] by Automated count 32.5-35.6 [facility] MCV Auto (RBC) [Entitic vol] Ordered By: Daisy Paul on 09-20-2024 MCV (RBC) [Entitic vol] MCV [Entitic volume] by Automated count 83.5-101 [facility] Monocyte distribution width [Entitic volume] in Blood by AutomatedOrdered By: Daisy Paul on 09-20-2024 Monocyte distribution width Auto (Bld) [Entitic vol] Monocyte distribution width [Entitic volume] in Blood by Automated High 0.00-20.00 [facility] Comment on above: For adults in ED, MD W > 20.0 may be associated with a higher risk of sepsis during the first 12 hrs of hospital admission Monocytes Auto (Bld) [#/Vol] Ordered By: Daisy Paul on 09-20-2024 Monocytes (Bld) [#/Vol] Automated blood monocyte count 0.0-0.8 [facility] Monocytes/100 WBC Auto (Bld) Ordered By: Daisy Paul on 09-20-2024 Monocytes/100 WBC (Bld) Automated monocyte % . [facility] Natriuretic peptide B [Mass/ Vol]Ordered By: Daisy Paul on 09-20-2024 Natriuretic peptide B (Bld) [Mass/Vol] BNP ser/plas 5-100 [facility] Neutrophils Auto (Bld) [#/Vo l]Ordered By: Daisy Paul on 09-20-2024 Neutrophils (Bld) [#/Vol] Neutrophils [#/volume] in Blood by Automated count High 1.8-7.7 [facility] Neutrophils/100 WBC Auto (Bl d)Ordered By: Daisy Paul on 09-20-2024 Neutrophils/100 WBC (Bld) Automated neutrophil % . [facility] No Panel InformationOrdered By: Daisy Paul on 09-20-2024 Estimated GFR (CKD-EPI) > 60.0 mL/Min [facility] Creatinine Clearance (Chem 82.47 [facility] Nucleated erythrocytes [Pres ence] in Blood by Automated countOrdered By: Daisy Paul on 09-20-2024 Nucleated RBC Auto Ql (Bld) Nucleated erythrocytes [Presence] in Blood by Automated count 0-0.5 [facility] Platelet mean volume Auto (B ld) [Entitic vol]Ordered By: Daisy Paul on 09-20-2024 Platelet mean volume (Bld) [Entitic vol] Platelet mean volume [Entitic volume] in Blood by Automated count 6.6-10.1 [facility] Platelets Auto (Bld) [#/Vol] Ordered By: Daisy Paul on 09-20-2024 Platelets (Bld) [#/Vol] Platelets [#/volume] in Blood by Automated count 150-450 [facility] Potassium [Moles/volume] in Serum or PlasmaOrdered By: Daisy Paul on 09-20-2024 Potassium [Moles/Vol] Potassium [Moles/v olume] in Serum or Plasma 3.5-5.1 [facility] RBC Auto (Bld) [#/Vol]Ordere d By: Daisy Paul on 09-20-2024 RBC (Bld) [#/Vol] Erythrocytes [#/volu me] in Blood by Automated count 3.90-5.60 [facility] Respiratory (Upper) Panel, P CRon 09-20-2024 [...] A H3 Blank Space ---- PERFORMED BY: [address] [address] PATHOLOGIST BAKERY HELPER RAKEL LAZARO M.D. Normal [facility] Comment on above: Performed By: #### H S TROP #### [facility] [address] [place] [address] [facility] Respiratory pathogens DNA an d RNA panel - Nasopharynx by JER with non-probe detectionOrdered By: Daisy Paul on 09-20-2024 Respiratory pathogens DNA and RNA panel JER+non-probe (Nph) Respiratory pathogens DNA and RNA panel - Nasopharynx by JER with non-probe detection [facility] Serum or plasma anion gap de terminationOrdered By: Daisy Paul on 09-20-2024 Anion gap [Moles/Vol] Serum or plasma an ion gap determination 6.0-15.0 [facility] Sodium [Moles/volume] in Ser um or PlasmaOrdered By: Daisy Paul on 09-20-2024 Sodium [Moles/Vol] Sodium [Moles/volume ] in Serum or Plasma Low 136-145 [facility] Troponin I High Sensitivityo n 09-20-2024 Troponin I High Sensitivity 8 Normal 0-20 [facility] Comment on above: Result Comment: The Troponin units of report have been changed to meet the Chest Pain Accreditation requirement, element EC5.M1l2. Troponin units are changed from pg/ml to ng/L. Also, the decimal is removed and results are in whole numbers. PERFORMED BY: [address] [address] PATHOLOGIST BAKERY HELPER RAKEL LAZARO M.D. Performed By: #### H S TROP #### [facility] [address] [place] [address] [facility] Troponin I High Sensitivity 8 Normal 0-20 [facility] Comment on above: Result Comment: The Troponin units of report have been changed to meet the Chest Pain Accreditation requirement, element EC5.M1l2. Troponin units are changed from pg/ml to ng/L. Also, the decimal is removed and results are in whole numbers. PERFORMED BY: [place] [address] PATHOLOGIST BAKERY HELPER RAKEL LAZARO M.D. Performed By: #### C BC, BNP, BMP, HS TROP #### [address] Troponin I.cardiac [Mass/vol ume] in Serum or Plasma by Detection limit <= 0.01 ng/Ordered By: Daisy Paul on 09-20-2024 Troponin I.cardiac DL <= 0.01 ng/mL [Mass/Vol] Troponin I.cardiac [Mass/volume] in Serum or Plasma by Detection limit <= 0.01 ng/ 0-20 [facility] Comment on above: The Troponin units [...] nitrogen [Mass/volume] in Serum or Plasma 7-25 [facility] WBC Auto (Bld) [#/Vol]Ordere d By: Daisy Paul on 09-20-2024 WBC (Bld) [#/Vol] Leukocytes [#/volume ] in Blood by Automated count 4.1-10.5 [facility] X-ray reportOrdered By: Rex Hutchins on 09-20-2024 Study report [facility] [place] [address] [place] [address] XRay Report Signed Patient: Shantel Melendez MR#: [id number] : 1960 Acct:[id number] Age/Sex: 63 / M ADM Date: 5 Loc: ER Room: Type: [facility] ER Attending Dr: Copies to: Daisy Paul [...] Gee Hutchins M.D.09/20/2024 12:47 PM Dictation Location: [place] [address] Transcribed By: MARISA 09/20/24 1247 Dictated By: Gee Hutchins MD 09/20/241244 Signed By: 09/20/[address] [place] [address] Work Phone: XR chest 2V*on 09-20-2024 XR chest 2V* [facility] [place] [address] [place] [address] XRay Report Signed Patient: Shantel Melendez MR#: [id number] : 1960 Acct:[id number] Age/Sex: 63 / M ADM Date: 09/20/24 Loc: ER Room: Type: [facility] ER Attending Dr: Copies to: Daisy Paul MD [...] Gee Hutchins M.D.09/20/2024 12:47 PM Dictation Location: [place] [address] Transcribed By: MARISA 09/20/24 1247 Dictated By: Gee Hutchins MD 09/20/24 1245 Signed By: 09/20/24 1247 Normal [facility] US ankle/arm indiceson 09-16 US ankle/arm indices [facility] [address] [place] [address] Ultrasound Report Signed Patient: Shantel Melendez MR#: [id number] : 1960 Acct:[id number] Age/Sex: 63 / M ADM Date: 09/11/24 Loc: [facility] Room: Type: [facility] Attending Dr: Ruddy Harvey MD Ordering [...] Filipe Hess M.D.09/16/2024 2:46 PM Dictation Location: [place] [address] Tech: Agueda Helm Transcribed By: MARISA 09/16/24 1446 Dictated By: Filipe Hess MD 09/16/24 1445 Signed By: 09/16/24 1446 Normal [facility] X-ray reportOrdered By: Yehuda Pozo on 06-24-2024 Study report [facility] [place] [address] [place], [place] [id number] XRay Report Signed Patient: Shantel Melendez MR#: [id number] : 1960 Acct:[id number] Age/Sex: 63 / M ADM Date: 5 Loc: XD Room: Type: [facility] CLI Attending Dr: Solomon Narayanan PA-C Copies to: [...] SWELLING. Impression dictated by: Yung Pozo Jr., DMaria ROMaria R06/24/2024 8:08 PM Dictation Location: [place] [address] Transcribed By: [facility] 06/24/242007 Dictated By: Yung Pozo Jr, DO 06/24/242005 Signed By: 06/24/242007 [facility] XR cervical spine LAT/FLX/EX Ton 06-24-2024 XR cervical spine LAT/FLX/EXT [address] [address] XRay Report Signed Patient: Shantel Melendez MR#: [id number] : 1960 Acct:[id number] Age/Sex: 63 / M ADM Date: 06/24/24 Loc: XD Room: Type: [facility] CLI Attending Dr: Solomon Narayanan PA-C Copies to: Solomon DAUGHERTY Ordering Provider: Solomon DAUGHERTY Date of Service: [...] SWELLING. Impression dictated by: Yung Pozo Jr., Ritesh06/24/2024 8:08 PM Dictation Location: [facility]-18 Transcribed By: [facility] 06/24/242007 Dictated By: Yung Pozo Jr, DO 06/24/242005 Signed By: 06/24/242007 Normal [facility] Basic metabolic 2000 panelon 04-10-2024 Anion gap [Moles/Vol] 14 mmol/L 10 - 2 0 mmol/L [facility] Calcium [Mass/Vol] 9 mg/dL 8.6 - 10. 6 mg/dL [facility] Chloride [Moles/Vol] 103 mmol/L 98 - 10 7 mmol/L [facility] CO2 [Moles/Vol] 26 mmol/L 21 - 32 mmol/L [facility] Creatinine [Mass/Vol] 0.86 mg/dL 0.50 - 1.30 mg/dL [facility] eGFR - PINF [facility] Comment on above: Calculations of sandra mated GFR are performed using the 2020 CKD-EPI Study Refit equation without the race variable for the IDMS-Traceable creatinine methods. https://jasn.asnjournals.org/content/early//ASN.00645 58966 Glucose [Mass/Vol] 159 mg/dL High 74 - 99 mg/dL [facility] Interpretation and review of laboratory results Abnormal [facility] Potassium [Moles/Vol] 4.5 mmol/L 3.5 - 5.3 mmol/L [facility] Sodium [Moles/Vol] 138 mmol/L 136 - 145 mmol/L [facility] Urea nitrogen [Mass/Vol] 14 mg/dL 6 - 23 mg/dL [facility] Anion gap [Moles/Vol] 14 mmol/L Normal 10-20 [facility] Comment on above: Performed By: #### 5 7021-8 #### TITUS SOLORZANO L ([id number]) [facility] ([facility]) [address] [place] [address] Calcium [Mass/Vol] 9.0 mg/dL Normal 8.6-10.6 [facility] Comment on above: Performed By: #### 5 7021-8 #### TITUS SOLORZANO L ([id number]) [facility] ([facility]) [address] [place] [address] Chloride [Moles/Vol] 103 mmol/L Normal 98-107 [facility] Comment on above: Performed By: #### 5 7021-8 #### TITUS SOLORZANO L ([id number]) [facility] ([facility]) [address] [place] [address] CO2 [Moles/Vol] 26 mmol/L Normal 21-32 [facility] Comment on above: Performed By: #### 5 7021-8 #### TITUS SOLORZANO L ([id number]) [facility] ([facility]) [address] [place] [address] Creatinine [Mass/Vol] 0.86 mg/dL Normal 0.50-1.30 [facility] Comment on above: Performed By: #### 5 7021-8 #### TITUS SOLORZANO L ([id number]) [facility] ([facility]) [address] [place] [address] GFR/1.73 sq M.predicted MDRD (S/P/Bld) [Vol rate/Area] mL/min/{1.73_m2} Normal >60 [facility] Comment on above: Result Comment: Calc ulations of estimated GFR are performed using the 2020 CKD-EPI Study Refit equation without the race variable for the IDMS-Traceable creatinine methods. https://jasn.asnjournals.org/content///ASN.03290 [address] Performed By: #### 5 7021-8 #### TITUS SOLORZANO L ([id number]) [facility] ([facility]) [address] [place] [address] Glucose [Mass/Vol] 159 mg/dL High 74-99 [facility] Comment on above: Performed By: #### 5 7021-8 #### TITUS Mercado ([id number]) [facility] ([facility]) [address] [place] [address] Potassium [Moles/Vol] 4.5 mmol/L Normal 3.5-5.3 [facility] Comment on above: Performed By: #### 5 7021-8 #### TITUS Mercado ([id number]) [facility] ([facility]) [address] [place] [address] Sodium [Moles/Vol] 138 mmol/L Normal 136-145 [facility] Comment on above: Performed By: #### 5 7021-8 #### TITUS Mercado ([id number]) [facility] ([facility]) [address] [place] [address] Urea nitrogen [Mass/Vol] 14 mg/dL Normal 6-23 [facility] Comment on above: Performed By: #### 5 7021-8 #### TIUTS Mercado ([id number]) [facility] ([facility]) [address] [place] [address] CBC panel Auto (Bld)on 04-10 Erythrocyte distribution width (RBC) [Ratio] 13.3 % 11.5 - 14.5 % [facility] Hematocrit (Bld) [Volume fraction] 38 % Low 41.0 - 52.0 % [facility] Hemoglobin (Bld) [Mass/Vol] 12.9 g/dL Low 13.5 - 17.5 g/dL [facility] Interpretation and review of laboratory results Abnormal [facility] MCH (RBC) [Entitic mass] 31.9 pg 26.0 - 34.0 pg [facility] MCHC (RBC) [Mass/Vol] 33.9 g/dL 32.0 - 36.0 g/dL [facility] MCV (RBC) [Entitic vol] 94 fL 80 - 100 fL [facility] Nucleated RBC/100 WBC (Bld) [Ratio] 0 % [facility] Platelets (Bld) [#/Vol] 221 10*3/uL [facility] RBC (Bld) [#/Vol] 4.05 10*6/uL Low [facility] WBC (Bld) [#/Vol] 9.6 10*3/uL [facility] Erythrocyte distribution width (RBC) [Ratio] 13.3 % Normal 11.5-14.5 [facility] Comment on above: Performed By: #### 5 7021-8 #### TITUS Mercado ([id number]) [facility] ([facility]) [address] [place] [address] Hematocrit (Bld) [Volume fraction] 38.0 % Low 41.0-52.0 [facility] Comment on above: Performed By: #### 5 7021-8 #### TITUS Mercado ([id number]) [facility] ([facility]) [address] [place] [address] Hemoglobin (Bld) [Mass/Vol] 12.9 g/dL Low 13.5-17.5 [facility] Comment on above: Performed By: #### 5 7021-8 #### TITUS Mercado ([id number]) [facility] ([facility]) [address] [place] [address] MCH (RBC) [Entitic mass] 31.9 pg Normal 26.0-34.0 [facility] Comment on above: Performed By: #### 5 7021-8 #### TITUS Mercado ([id number]) [facility] ([facility]) [address] [place] [address] MCHC (RBC) [Mass/Vol] 33.9 g/dL Normal 32.0-36.0 [facility] Comment on above: Performed By: #### 5 7021-8 #### TITUS Mercado ([id number]) [facility] ([facility]) [address] [place] [address] MCV (RBC) [Entitic vol] 94 fL Normal 80-100 [facility] Comment on above: Performed By: #### 5 7021-8 #### TITUS PAYANMOTZER L ([id number]) [facility] ([facility]) [address] [place] [address] Nucleated RBC/100 WBC (Bld) [Ratio] 0.0 /100 WBCs Normal 0.0-0.0 [facility] Comment on above: Performed By: #### 5 7021-8 #### TITUS SCHMOTZER L ([id number]) [facility] ([facility]) [address] [place] [address] Platelets (Bld) [#/Vol] 221 x10*3/uL Normal 150-450 [facility] Comment on above: Performed By: #### 5 7021-8 #### TITUS SCHMOTZER L ([id number]) [facility] ([facility]) [address] [place] [address] RBC (Bld) [#/Vol] 4.05 x10*6/uL Low 4.50-5.90 [facility] Comment on above: Performed By: #### 5 7021-8 #### TITUS PAYANMOTZER L ([id number]) [facility] ([facility]) [address] [place] [address] WBC (Bld) [#/Vol] 9.6 x10*3/uL Normal 4.4-11.3 [facility] Comment on above: Performed By: #### 5 7021-8 #### TITUS PAYANMOTZER L ([id number]) [facility] ([facility]) [address] [place] [address] XR CERVICAL SPINE 2-3 VIEWSo n 04-10-2024 XR CERVICAL SPINE 2-3 VIEWS Interpreted By: Shubham Eubanks, STUDY: Cervical spine dated 04/10/2024. INDICATION: Signs/Symptoms:Post surgery COMPARISON: None. ACCESSION NUMBER(S): [id number] ORDERING CLINICIAN: DORETHA HARRIS TECHNIQUE: Two views of the cervical [...] Shubham Eubanks 04/10/2024 10:05 AM Dictation workstation: [id number] [facility] Comment on above: Order Comment: Micheal alvarado have patient upright XR Cervical spine 2 or 3 Vie wson 04-10-2024 Surgical and degener ative change as above without osseous injury evident. MACRO: None Signed by: Shubham Eubanks 04/10/2024 10:05 AM Dictation workstation: [id number] MMODAL Interpreted By: Shubham Curran, STUDY: Cervical spine dated 04/10/2024. INDICATION: Signs/Symptoms:Post surgery COMPARISON: None. ACCESSION NUMBER(S): [id number] ORDERING CLINICIAN: DORETHA HARRIS TECHNIQUE: Two views of the cervical [...] INDICATION: Signs/Symptoms:Post surgery COMPARISON: None. ACCESSION NUMBER(S): [id number] ORDERING CLINICIAN: DORETHA HARRIS TECHNIQUE: Two views of the cervical [...] Shubham Eubanks 04/10/2024 10:05 AM Dictation workstation: [id number] [facility] Work Phone: Radiology Study observation (narrative) [facility] Work Phone: XR Cervical spine 2 or 3 Vie wsOrdered By: Shubham Eubanks on 04-10-2024 [facility] Work Phone: Blood type and Indirect anti body screen panel (Bld)on 04-09-2024 ABO group Nom (Bld) A [facility] Blood group antibody screen Ql Negative [facility] D Ag Ql (Bld) Positive [facility] ABO group Nom (Bld) A Normal [facility] Comment on above: Order Comment: As ne eded for scheduled for aortic, liver, cardiac, or thoracic surgery OR hgb<7.5mg/dl and no active type and screen. Performed By: #### 5 7021-8 #### TITUS Mercado ([id number]) [facility] ([facility]) [address] [place] [address] Blood group antibody screen Ql Negative [facility] Comment on above: Order Comment: As ne eded for scheduled for aortic, liver, cardiac, or thoracic surgery OR hgb<7.5mg/dl and no active type and screen. Performed By: #### 5 7021-8 #### TITUS Mercado ([id number]) [facility] ([facility]) [address] [place] [address] D Ag Ql (Bld) Positive [facility] Comment on above: Order Comment: As ne eded for scheduled for aortic, liver, cardiac, or thoracic surgery OR hgb<7.5mg/dl and no active type and screen. Performed By: #### 5 7021-8 #### TITUS Mercado ([id number]) [facility] ([facility]) [address] [place] [id number] FL FLUORO IMAGES NO CHARGEon 04-09-2024 FL FLUORO IMAGES NO CHARGE These images are not reportable by radiology and will not be interpreted by Radiologists. Normal [facility] Gas and Carbon monoxide and Electrolytes panel (BldA)on 04-09-2024 Anion gap 4 (BldA) [Moles/Vol] 8 Low [facility] Base excess Calc (Bld) [Moles/Vol] -1.9000 mmol/L -2.0 - 3.0 mmol/L [facility] Calcium.ionized (BldA) [Moles/Vol] 1.24 mmol/L 1.10 - 1.33 mmol/L [facility] Chloride (BldA) [Moles/Vol] 104 mmol/L 98 - 107 mmol/L [facility] CO2 (Bld) [Partial pressure] 46 mm[Hg] High [facility] Glucose [Mass/Vol] 132 mg/dL High 74 - 99 mg/dL [facility] HCO3 (Bld) [Moles/Vol] 24.3 mmol/L 22.0 - 26.0 mmol/L [facility] Hematocrit Est (Bld) [Volume fraction] 39 % Low 41.0 - 52.0 % [facility] Hemoglobin (Bld) [Mass/Vol] 12.9 g/dL Low 13.5 - 17.5 g/dL [facility] Inhaled oxygen concentration 44 % [facility] Interpretation and review of laboratory results Abnormal [facility] Lactate (BldA) [Moles/Vol] 0.7 mmol/L 0.4 - 2.0 mmol/L [facility] Oxygen (Bld) [Partial pressure] 156 mm[Hg] High [facility] Oxyhemoglobin (BldA) [Mass fraction] 95 % 94.0 - 98.0 % [facility] pH (Bld) 7.33 [pH] Low 7.38 - 7.42 pH [facility] Potassium (BldA) [Moles/Vol] 4.5 mmol/L 3.5 - 5.3 mmol/L [facility] Sodium (BldA) [Moles/Vol] 132 mmol/L Low 136 - 145 mmol/L [facility] Anion gap 4 (BldA) [Moles/Vol] 8 mmo/L Low 10-25 [facility] Comment on above: Performed By: #### 5 7021-8 #### TITUS Mercado ([id number]) [facility] ([facility]) [address] [place] [address] Base excess Calc (Bld) [Moles/Vol] -1.9000 mmol/L Normal -2.0-3.0 [facility] Comment on above: Performed By: #### 5 7021-8 #### TITUS Mercado ([id number]) [facility] ([facility]) [address] [place] [address] Calcium.ionized (BldA) [Moles/Vol] 1.24 mmol/L Normal 1.10-1.33 [facility] Comment on above: Performed By: #### 5 7021-8 #### TITUS Mercado ([id number]) [facility] ([facility]) [address] [place] [address] Chloride (BldA) [Moles/Vol] 104 mmol/L Normal 98-107 [facility] Comment on above: Performed By: #### 5 7021-8 #### TITUS Mercado ([id number]) [facility] ([facility]) [address] [place] [address] CO2 (Bld) [Partial pressure] 46 mm Hg High 38-42 [facility] Comment on above: Performed By: #### 5 7021-8 #### TITUS Mercado ([id number]) [facility] ([facility]) [address] [place] [address] Glucose [Mass/Vol] 132 mg/dL High 74-99 [facility] Comment on above: Performed By: #### 5 7021-8 #### TITUS Mercado ([id number]) [facility] ([facility]) [address] [place] [address]87 HCO3 (Bld) [Moles/Vol] 24.3 mmol/L Normal 22.0-26.0 [facility] Comment on above: Performed By: #### 5 7021-8 #### TITUS Mercado ([id number]) [facility] ([facility]) [address] [place] [address] Hematocrit Est (Bld) [Volume fraction] 39.0 % Low 41.0-52.0 [facility] Comment on above: Performed By: #### 5 7021-8 #### TITUS Mercado ([id number]) [facility] ([facility]) [address] [place] [address] 19773 Hemoglobin (Bld) [Mass/Vol] 12.9 g/dL Low 13.5-17.5 [facility] Comment on above: Performed By: #### 5 7021-8 #### TITUS Mercado ([id number]) [facility] ([facility]) [address] [place] [address] 27221 Inhaled oxygen concentration 44 % Normal [facility] Comment on above: Performed By: #### 5 7021-8 #### TITUS Mercado ([id number]) [facility] ([facility]) [address] [place] [address] 63017 Lactate (BldA) [Moles/Vol] 0.7 mmol/L Normal 0.4-2.0 [facility] Comment on above: Performed By: #### 5 7021-8 #### TITUS Mercado ([id number]) [facility] ([facility]) [address] [place] [address] 12582 Oxygen (Bld) [Partial pressure] 156 mm Hg High 85-95 [facility] Comment on above: Performed By: #### 5 7021-8 #### TITUS Mercado ([id number]) [facility] ([facility]) [address] [place] [address] 84528 Oxyhemoglobin (BldA) [Mass fraction] 95.0 % Normal 94.0-98.0 [facility] Comment on above: Performed By: #### 5 7021-8 #### TITUS Mercado ([id number]) [facility] ([facility]) [address] [place] [address] pH (Bld) 7.33 [pH] Low 7.38-7.42 [facility] Comment on above: Performed By: #### 5 7021-8 #### TITUS Mercado ([id number]) [facility] ([facility]) [address] [place] [address] 59577 Potassium (BldA) [Moles/Vol] 4.5 mmol/L Normal 3.5-5.3 [facility] Comment on above: Performed By: #### 5 7021-8 #### TITUS Mercado ([id number]) [facility] ([facility]) [address] [place] [address] 92677 Sodium (BldA) [Moles/Vol] 132 mmol/L Low 136-145 [facility] Comment on above: Performed By: #### 5 7021-8 #### TITUS Mercado ([id number]) [facility] ([facility]) [address] [place] [address] 83581 XR tomography Unspecified monique dy regionon 04-09-2024 These images are not reportable by radiology and will not be interpreted by Radiologists. IMAGING CT TRANSFER OF OUTSIDE FILMS on 03-31-2024 CT TRANSFER OF OUTSIDE FILMS Outside images for comparison or treatment purposes, not interpreted by Radiologists. Normal [facility] Study Interpretation of outs jeffrey studyon 03-31-2024 Outside images for comparison or treatment purposes, not interpreted by Radiologists. IMAGING Blood type and Indirect anti body screen panel (Bld)on 03-26-2024 ABO group Nom (Bld) A Normal [facility] Comment on above: Performed By: #### 3 4532-2 #### TITUS Mercado ([id number]) [facility] ([facility]) [address] [place] [address] 81833 Blood group antibody screen Ql Negative Normal [facility] Comment on above: Performed By: #### 3 4532-2 #### TITUS Mercado ([id number]) [facility] ([facility]) [address] [place] [address] D Ag Ql (Bld) Positive Normal [facility] Comment on above: Performed By: #### 3 4532-2 #### TITUS Mercado ([id number]) [facility] [address] [place] [address] DEXA BONE DENSITYon 02-13-20 DEXA BONE DENSITY Interpreted By: Ruddy Simmons, STUDY: DEXA BONE DENSITY02/13/2024 10:50 am INDICATION: Signs/Symptoms:r/o osteoporosis, NEED AXIAL SKELETON IMAGES.. The patient is a 63 y/o year old M. ,M54.12 Radiculopathy, cervical region COMPARISON: None. ACCESSION NUMBER(S): [id number] ORDERING CLINICIAN: DORETHA HARRIS TECHNIQUE: DEXA BONE DENSITY FINDINGS: SPINE [...] Ruddy Lopez 12/29/2024 8:09 AM Dictation workstation: [id number] [facility] DXA Skeletal system Views fo r bone [...] Radiculopathy, cervical region COMPARISON: None. ACCESSION NUMBER(S): [id number] ORDERING CLINICIAN: DORETHA HARRIS FINDINGS: C-spine, 6 views There is [...] Romulo Medrano 02/19/2024 6:35 PM Dictation workstation: [id number] [facility] Comment on above: Order Comment: Pleas e obtain with flexion and extension XR CHEST 2 VIEWSon XR CHEST 2 VIEWS Interpreted By: Romulo Hubbard, STUDY: XR CHEST 2 VIEWS; 02/13/2024 11:10 am INDICATION: Signs/Symptoms:Preop surgery 02/[address] Steven MD. ,M54.12 Radiculopathy, cervical region,M81.0 Age-related osteoporosis without current pathological fracture COMPARISON: None. ACCESSION NUMBER(S): [id number] ORDERING CLINICIAN: DORETHA HARRIS FINDINGS: CARDIOMEDIASTINAL SILHOUETTE: Cardiomediastinal silhouette is normal in size and configuration. LUNGS: Lungs are clear. ABDOMEN: No remarkable upper abdominal findings. BONES: No acute osseous changes. IMPRESSION: 1. No evidence of acute cardiopulmonary process. MACRO: None Signed by: Romulo Medrano 02/19/2024 6:53 PM Dictation workstation: [id number] [facility] ECG 12 leadOrdered By: Shavon Rico on 02-12-2024 Atrial Rate 63 BPM [facility] Work Phone: [phone] P Beverly 58 degrees [facility] Work Phone: [phone] P Offset 149 ms [facility] Work Phone: [phone] P Onset 90 ms [facility] Work Phone: [phone] WA Interval 268 ms [facility] Work Phone: [phone] Q Onset 224 ms [facility] Work Phone: [phone] QRS Count 10 beats [facility] Work Phone: [phone] QRS Duration 74 ms [facility] Work Phone: [phone] QT Interval 406 ms [facility] Work Phone: [phone] QTC Calculation(Bazett) 415 ms [facility] Work Phone: [phone] QTC Fredericia 412 ms [facility] Work Phone: [phone] R Beverly -3 degrees [facility] Work Phone: [phone] T Beverly 18 degrees [facility] Work Phone: [phone] T Offset 427 ms [facility] Work Phone: [phone] Ventricular Rate 63 BPM [facility] Work Phone: [phone] [facility] Work Phone: [phone] ECG 12 leadon 02-12-2024 Sinus rhythm with 1s t degree AV block Otherwise normal ECG When compared with ECG of 30-JAN-2019 19:26, heart rate decreased Confirmed by Tobi Rico ([id number]) on 02/12/2024 12:20:00 PM MUSE Tobi Rico MD - 02/12/2024 Sinus rhythm with 1st degree AV block Otherwise normal ECG When compared with ECG of 15-AUG-2019 19:26, heart rate decreased Confirmed by Tobi Rico ([id number]) on 02/12/2024 12:20:00 PM [facility] Work Phone: Basic metabolic 2000 panelon 02-11-2024 Anion gap [Moles/Vol] 13 mmol/L Normal 10-20 [facility] Comment on above: Performed By: #### 2 4321-2 #### TITUS Mercado ([id number]) [facility] ([facility]) [address] [place] [address] 30331 Calcium [Mass/Vol] 9.6 mg/dL Normal 8.6-10.6 [facility] Comment on above: Performed By: #### 2 4321-2 #### TITUS Mercado ([id number]) [facility] ([facility]) [address] [place] [address] 86250 Chloride [Moles/Vol] 104 mmol/L Normal 98-107 [facility] Comment on above: Performed By: #### 2 4321-2 #### TITUS Mercado ([id number]) [facility] ([facility]) [address] [place] [address] CO2 [Moles/Vol] 26 mmol/L Normal 21-32 [facility] Comment on above: Performed By: #### 2 4321-2 #### TITUS Mercado ([id number]) [facility] ([facility]) [address] [place] [address] Creatinine [Mass/Vol] 0.89 mg/dL Normal 0.50-1.30 [facility] Comment on above: Performed By: #### 2 4321-2 #### TITUS Mercado ([id number]) [facility] ([facility]) [address] [place] [address] 38837 GFR/1.73 sq M.predicted MDRD (S/P/Bld) [Vol rate/Area] mL/min/{1.73_m2} Normal >60 [facility] Comment on above: Result Comment: Calc ulations of estimated GFR are performed using the 2020 CKD-EPI Study Refit equation without the race variable for the IDMS-Traceable creatinine methods. https://jasn.asnjournals.org/content//ASN.05383 90510 Performed By: #### 2 4321-2 #### TITUS Mercado ([id number]) [facility] ([facility]) [address] [place] [address] 37515 Glucose [Mass/Vol] 77 mg/dL Normal 74-99 [facility] Comment on above: Performed By: #### 2 4321-2 #### TITUS Mercado ([id number]) [facility] ([facility]) [address] [place] [address] 00860 Potassium [Moles/Vol] 4.6 mmol/L Normal 3.5-5.3 [facility] Comment on above: Performed By: #### 2 4321-2 #### TITUS Mercado ([id number]) [facility] ([facility]) [address] [place] [address] 02786 Sodium [Moles/Vol] 138 mmol/L Normal 136-145 [facility] Comment on above: Performed By: #### 2 4321-2 #### TITUS Mercado ([id number]) [facility] ([facility]) [address] [place] [address] 08365 Urea nitrogen [Mass/Vol] 9 mg/dL Normal 6-23 [facility] Comment on above: Performed By: #### 2 4321-2 #### TITUS Mercado ([id number]) [facility] ([facility]) [address] [place] [address] 32674 Blood type and Indirect anti body screen panel (Bld)on 02-11-2024 ABO group Nom (Bld) A Normal [facility] Comment on above: Performed By: #### 3 4532-2 #### TITUS Mercado ([id number]) [facility] ([facility]) [address] [place] [address] 56307 Blood group antibody screen Ql Negative [facility] Comment on above: Performed By: #### 3 4532-2 #### TITUS Mercado ([id number]) [facility] ([facility]) [address] [place] [address] 27449 D Ag Ql (Bld) Positive Normal [facility] Comment on above: Performed By: #### 3 4532-2 #### TITUS Mercado ([id number]) [facility] ([facility]) [address] [place] [address] 66913 CBC W Auto Differential pane l (Bld)on 02-11-2024 Basophils (Bld) [#/Vol] 0.04 x10*3/uL Normal 0.00-0.10 [facility] Comment on above: Performed By: #### 5 7021-8 #### TITUS Mercado ([id number]) [facility] ([facility]) [address] [place] [address] 47994 Basophils/100 WBC (Bld) 0.8 % Normal 0.0-2.0 [facility] Comment on above: Performed By: #### 5 7021-8 #### TITUS Mercado ([id number]) [facility] ([facility]) [address] [place] [address] 46942 Eosinophils (Bld) [#/Vol] 0.05 x10*3/uL Normal 0.00-0.70 [facility] Comment on above: Performed By: #### 5 7021-8 #### TITUS Mercado ([id number]) [facility] ([facility]) [address] [place] [address] 56606 Eosinophils/100 WBC (Bld) 1.0 % Normal 0.0-6.0 [facility] Comment on above: Performed By: #### 5 7021-8 #### TITUS Mercado ([id number]) [facility] ([facility]) [address] [place] [address] 97253 Erythrocyte distribution width (RBC) [Ratio] 13.2 % Normal 11.5-14.5 [facility] Comment on above: Performed By: #### 5 7021-8 #### TITUS Mercado ([id number]) [facility] ([facility]) [address] [place] [address] Hematocrit (Bld) [Volume fraction] 39.6 % Low 41.0-52.0 [facility] Comment on above: Performed By: #### 5 7021-8 #### TITUS Mercado ([id number]) [facility] ([facility]) [address] [place] [address] 00692 Hemoglobin (Bld) [Mass/Vol] 13.2 g/dL Low 13.5-17.5 [facility] Comment on above: Performed By: #### 5 7021-8 #### TITUS Mercado ([id number]) [facility] ([facility]) [address] [place] [address] 48282 Immature granulocytes (Bld) [#/Vol] 0.00 x10*3/uL Normal 0.00-0.70 [facility] Comment on above: Performed By: #### 5 7021-8 #### TITUS Mercado ([id number]) [facility] ([facility]) [address] [place] [address] 69607 Immature granulocytes/100 WBC (Bld) 0.0 % Normal 0.0-0.9 [facility] Comment on above: Result Comment: Dayan ture Granulocyte Count (IG) includes promyelocytes, myelocytes and metamyelocytes but does not include bands. Percent differential counts (%) should be interpreted in the context of the absolute cell counts (cells/UL). Performed By: #### 5 7021-8 #### TITUS Mercado ([id number]) [facility] ([facility]) [address] [place] [address] 57424 Lymphocytes (Bld) [#/Vol] 1.74 x10*3/uL Normal 1.20-4.80 [facility] Comment on above: Performed By: #### 5 7021-8 #### TITUS Mercado ([id number]) [facility] ([facility]) [address] [place] [address] 79820 Lymphocytes/100 WBC (Bld) 33.1 % Normal 13.0-44.0 [facility] Comment on above: Performed By: #### 5 7021-8 #### TITUS Mercado ([id number]) [facility] ([facility]) [address] [place] [address] 14808 MCH (RBC) [Entitic mass] 31.5 pg Normal 26.0-34.0 [facility] Comment on above: Performed By: #### 5 7021-8 #### TTIUS Mercado ([id number]) [facility] ([facility]) [address] [place] [address] 57602 MCHC (RBC) [Mass/Vol] 33.3 g/dL Normal 32.0-36.0 [facility] Comment on above: Performed By: #### 5 7021-8 #### TITUS Mercado ([id number]) [facility] ([facility]) [address] [place] [address] 32084 MCV (RBC) [Entitic vol] 95 fL Normal 80-100 [facility] Comment on above: Performed By: #### 5 7021-8 #### TITUS Mercado ([id number]) [facility] ([facility]) [address] [place] [address] 07430 Monocytes (Bld) [#/Vol] 0.30 x10*3/uL Normal 0.10-1.00 [facility] Comment on above: Performed By: #### 5 7021-8 #### TITUS Mercado ([id number]) [facility] ([facility]) [address] [place] [address] 83436 Monocytes/100 WBC (Bld) 5.7 % Normal 2.0-10.0 [facility] Comment on above: Performed By: #### 5 7021-8 #### TITUS Mercado ([id number]) [facility] ([facility]) [address] [place] [address] 74025 Neutrophils (Bld) [#/Vol] 3.13 x10*3/uL Normal 1.20-7.70 [facility] Comment on above: Result Comment: Perc ent differential counts (%) should be interpreted in the context of the absolute cell counts (cells/uL). Performed By: #### 5 7021-8 #### TITUS Mercado ([id number]) [facility] ([facility]) [address] [place] [address] 30187 Neutrophils/100 WBC (Bld) 59.4 % Normal 40.0-80.0 [facility] Comment on above: Performed By: #### 5 7021-8 #### TITUS Mercado ([id number]) [facility] ([facility]) [address] [place] [address] 07065 Nucleated RBC/100 WBC (Bld) [Ratio] 0.0 /100 WBCs Normal 0.0-0.0 [facility] Comment on above: Performed By: #### 5 7021-8 #### TITUS Mercado ([id number]) [facility] ([facility]) [address] [place] [address] 23365 Platelets (Bld) [#/Vol] 271 x10*3/uL Normal 150-450 [facility] Comment on above: Performed By: #### 5 7021-8 #### TITUS Mercado ([id number]) [facility] ([facility]) [address] [place] [address] 47551 RBC (Bld) [#/Vol] 4.19 x10*6/uL Low 4.50-5.90 [facility] Comment on above: Performed By: #### 5 7021-8 #### TITUS Mercado ([id number]) [facility] ([facility]) [address] [place] [address] 07772 WBC (Bld) [#/Vol] 5.3 x10*3/uL Normal 4.4-11.3 [facility] Comment on above: Performed By: #### 5 7021-8 #### TITUS Mercado ([id number]) [facility] ([facility]) [address] [place] [address] ECG 12-LEADon 02-11-2024 ECG 12-LEAD Ventricular Rate 63 Atrial Rate 63 P-R Interval 268 QRS Duration 74 Q-T Interval 406 QTC Calculation(Bazett) 415 P Beverly 58 R Beverly -3 T Beverly 18 QRS Count 10 Q Onset 224 P Onset 90 P Offset 149 T Offset 427 QTC Fredericia 412 Diagnosis Sinus rhythm with 1st degree AV block Otherwise normal ECG When compared with ECG of 30-JAN-2019 19:26, heart rate decreased Confirmed by Tobi Rico ([id number]) on 02/12/2024 12:20:00 PM Normal [facility] NICOTINE AND METABOLITES,Son 02-11-2024 Cotinine [Mass/Vol] 152 ng/mL Normal [facility] Comment on above: Performed By: #### N I+ME #### [facility] [employer]) ([id number]) [address] [place] [address] 04526 Nicotine [Mass/Vol] 6 ng/mL Normal [facility] Comment on above: Result Comment: INTE RPRETIVE [...] developed and its performance characteristics determined by [employer]. It has not been cleared or approved by the [place] Food and Drug Administration. This test was performed in a CLIA certified laboratory and is intended for clinical purposes. Performed By: [facility] [address] [place] [address] 09854 Glaze Wiper: Benjamin Bullock MD, PhD CLIA Number: [id number] Performed By: #### N I+ME #### [facility] ([id number]) [address] [place] [address] PT and aPTT panel Coag (PPP) on 02-11-2024 aPTT Coag (PPP) [Time] 33 s Normal 27-38 Un [facility] Comment on above: Order Comment: The A PTT is no longer used for monitoring Unfractionated Heparin Therapy. For monitoring Heparin Therapy, use the Heparin Assay. Performed By: #### 3 4529-8 #### TITUS Mercado ([id number]) [facility] ([facility]) [address] [place] [address] INR Coag (PPP) [Relative time] 1.0 Normal 0.9-1.1 [facility] Comment on above: Order Comment: The A PTT is no longer used for monitoring Unfractionated Heparin Therapy. For monitoring Heparin Therapy, use the Heparin Assay. Performed By: #### 3 4529-8 #### TITUS Mercado ([id number]) [facility] ([facility]) [address] [place] [address] PT Coag (PPP) [Time] 11.5 s Normal 9.8-12.8 [facility] Comment on above: Order Comment: The A PTT is no longer used for monitoring Unfractionated Heparin Therapy. For monitoring Heparin Therapy, use the Heparin Assay. Performed By: #### 3 4529-8 #### TITUS Mercado ([id number]) [facility] ([facility]) [address] [place] [address] Staphylococcus aureus.methic illin resistant isolateon 02-11-2024 MRSA isol Org specific cx Ql (Nose) Test: Staphylococcus aureus/MRSA colonization, Culture Specimen Source: Anterior Nares Specimen Type: Swab Specimen Date: 02/11/2024 1505 Result Date: 02/13/2024825 Result Status: Final result Abnormal: No Resulting Lab: [facility] [address] [place] [address] CULTURE No Staphylococcus aureus isolated Normal [facility] Comment on above: Performed By: #### 5 2969-3 #### TITUS Mercado ([id number]) [facility] ([facility]) [address] [place] [address] 48540 Urinalysis complete W Reflex Culture panel (U)on 02-11-2024 Appearance (U) Clear Normal Clear [facility] Comment on above: Performed By: #### 5 8077-9 #### TITUS Mercado ([id number]) [facility] ([facility]) [address] [place] [address] 39082 Bilirubin (U) [Mass/Vol] Negative Normal NEGATIVE [facility] Comment on above: Performed By: #### 5 8077-9 #### TITUS Mercado ([id number]) [facility] ([facility]) [address] [place] [address] 43144 Color (U) Colorless Normal Light-Davison ow, Yellow, Dark-Yello w [facility] Comment on above: Performed By: #### 5 8077-9 #### TITUS Mercado ([id number]) [facility] ([facility]) [address] [place] [address] 91106 Glucose Auto test strip (U) [Mass/Vol] Normal Normal Normal [facility] Comment on above: Performed By: #### 5 8077-9 #### TITUS Mercado ([id number]) [facility] ([facility]) [address] [place] [address] 14664 Ketones (U) [Mass/Vol] Negative Normal NEGATIVE [facility] Comment on above: Performed By: #### 5 8077-9 #### TITUS Mercado ([id number]) [facility] ([facility]) [address] [place] [address] 88587 Leukocyte esterase Auto test strip Ql (U) Negative Normal NEGATIVE [facility] Comment on above: Performed By: #### 5 8077-9 #### TITUS SOLORZANO L ([id number]) [facility] ([facility]) [address] [place] [address] 34791 Nitrite Auto test strip Ql (U) Negative Normal NEGATIVE [facility] Comment on above: Performed By: #### 5 8077-9 #### TITUS Mercado ([id number]) [facility] ([facility]) [address] [place] [address] 84675 pH (U) 5.5 [pH] Normal 5.0, 5.5, 6.0, 6.5, 7.0, 7.5, 8.0 [facility] Comment on above: Performed By: #### 5 8077-9 #### TITUS Mercado ([id number]) [facility] ([facility]) [address] [place] [address] 98966 Protein (U) [Mass/Vol] Negative Normal NEGAT KURT, 10 (TRACE), 20 (TRACE) [facility] Comment on above: Performed By: #### 5 8077-9 #### TITUS Mercado ([id number]) [facility] ([facility]) [address] [place] [address] 49158 RBC (U) [#/Vol] Negative Normal NEGATIVE [facility] Comment on above: Performed By: #### 5 8077-9 #### TITUS Mercado ([id number]) [facility] ([facility]) [address] [place] [address] 92213 Specific gravity (U) [Rel density] 1.007 Normal 1.005-1.03 5 [facility] Comment on above: Performed By: #### 5 8077-9 #### TITUS Mercado ([id number]) [facility] ([facility]) [address] [place] [address] 48450 Urobilinogen (U) [Mass/Vol] Normal Normal Normal [facility] Comment on above: Performed By: #### 5 8077-9 #### TITUS Mercado ([id number]) [facility] ([facility]) [address] [place] [address] 20523 MR BRAIN TUMOR PERFUSION PRO TOCOL W AND WO IV CONTRASTon 12-13-2023 MR BRAIN TUMOR PERFUSION PROTOCOL W AND WO IV CONTRAST Interpreted By: Nate Benavidez, STUDY: MR BRAIN TUMOR PERFUSION PROTOCOL W AND WO IV CONTRAST; 12/13/2023 8:49 am INDICATION: Signs/Symptoms:pontine lesion, imaging surveillance. COMPARISON: None. ACCESSION NUMBER(S): [id number] ORDERING CLINICIAN: SHIMON HEATON TECHNIQUE: Axial diffusion, [...] infiltrating the brainstem most pronounced within the jose right slightly greater than left unchanged in appearance when compared with the prior study dated 07/18/2023. There is no significant associated mass effect or volume loss. On the obtained advanced MRI imaging, an ROIs was placed over the area of nonspecific nonenhancing bright signal on the FLAIR and T2 images within the right aspect of the jose and compared with contralateral more normal appearing brain parenchymal within the left lateral aspect of the jose which demonstrates no abnormal elevated corrected rCBV [...] infiltrating the brainstem most pronounced within the jose right slightly greater than left unchanged in appearance when compared with the prior study dated 07/18/2023. There is no significant associated mass effect or volume loss. On the obtained advanced MRI imaging, an ROIs was placed over the area of nonspecific nonenhancing bright signal on the FLAIR and T2 images within the right aspect of the jose and compared with contralateral more normal appearing brain parenchymal within the left lateral aspect of the jose which demonstrates no abnormal elevated corrected rCBV [...] Nate Benavidez 12/13/2023 9:38 AM Dictation workstation: [id number] [facility] Comment on above: Order Comment: JESSICA huerta cc'd to [facility] for new diagnosis t umor WO and W contrast Tristin 12-13-2023 There is again evide nce of nonspecific nonenhancing ill-defined abnormal bright signal on the FLAIR and T2 weighted images infiltrating the brainstem most pronounced within the jose right slightly greater than left unchanged in appearance when compared with the prior study dated 07/18/2023. There is no significant associated mass effect or volume loss. On the obtained advanced MRI imaging, an ROIs was placed over the area of nonspecific nonenhancing bright signal on the FLAIR and T2 images within the right aspect of the jose and compared with contralateral more normal appearing brain parenchymal within the left lateral aspect of the jose which demonstrates no abnormal elevated corrected rCBV [...] Nate Benavidez 12/13/2023 9:38 AM Dictation workstation: [id number] MMODAL Interpreted By: Nate Dejesus, STUDY: MR BRAIN TUMOR PERFUSION PROTOCOL W AND WO IV CONTRAST; 12/13/2023 8:49 am INDICATION: Signs/Symptoms:pontine lesion, imaging surveillance. COMPARISON: None. ACCESSION NUMBER(S): [id number] ORDERING CLINICIAN: SHIMON HEATON TECHNIQUE: Axial diffusion, [...] infiltrating the brainstem most pronounced within the jose right slightly greater than left unchanged in appearance when compared with the prior study dated 07/18/2023. There is no significant associated mass effect or volume loss. On the obtained advanced MRI imaging, an ROIs was placed over the area of nonspecific nonenhancing bright signal on the FLAIR and T2 images within the right aspect of the jose and compared with contralateral more normal appearing brain parenchymal within the left lateral aspect of the jose which demonstrates no abnormal elevated corrected rCBV [...] cells. The mastoid air cells are clear. MMODAL Nate Benavidez M D - 12/13/2023 Interpreted By: Nate Benavidez, STUDY: MR BRAIN TUMOR PERFUSION PROTOCOL W AND WO IV CONTRAST; 12/13/2023 8:49 am INDICATION: Signs/Symptoms:pontine lesion, imaging surveillance. COMPARISON: None. ACCESSION NUMBER(S): [id number] ORDERING CLINICIAN: SHIMON HEATON TECHNIQUE: Axial diffusion, [...] infiltrating the brainstem most pronounced within the jose right slightly greater than left unchanged in appearance when compared with the prior study dated 07/18/2023. There is no significant associated mass effect or volume loss. On the obtained advanced MRI imaging, an ROIs was placed over the area of nonspecific nonenhancing bright signal on the FLAIR and T2 images within the right aspect of the jose and compared with contralateral more normal appearing brain parenchymal within the left lateral aspect of the jose which demonstrates no abnormal elevated corrected rCBV [...] infiltrating the brainstem most pronounced within the jose right slightly greater than left unchanged in appearance when compared with the prior study dated 07/18/2023. There is no significant associated mass effect or volume loss. On the obtained advanced MRI imaging, an ROIs was placed over the area of nonspecific nonenhancing bright signal on the FLAIR and T2 images within the right aspect of the jose and compared with contralateral more normal appearing brain parenchymal within the left lateral aspect of the jose which demonstrates no abnormal elevated corrected rCBV [...] Nate Benavidez 12/13/2023 9:38 AM Dictation workstation: [id number] [facility] Work Phone: Radiology Study observation (narrative) [facility] Work Phone: MR Brain for new diagnosis t umor WO and W contrast IVOrdered By: Nate Benavidez on 12-13-2023 [facility] Work Phone: Basophils Auto (Bld) [#/Vol] on 10-26-2023 Basophils (Bld) [#/Vol] 0.04 10*3/uL <0.11 [facility] Basophils/100 WBC Auto (Bld) on 10-26-2023 Basophils/100 WBC (Bld) 0.5 % [facility] Blood manual differential co mment interpretation narrativeon 10-26-2023 Manual differential comment Curtis (Bld) [Interp] Auto [facility] CBC W Auto Differential pane l (Bld)on 10-26-2023 Basophils (Bld) [#/Vol] 0.04 10*3/uL [facility] Basophils/100 WBC (Bld) 0.5 % [facility] Differential cell count method Nom (Bld) Auto [facility] Eosinophils (Bld) [#/Vol] 0.13 10*3/uL [facility] Eosinophils/100 WBC (Bld) 1.5 % [facility] Erythrocyte distribution width (RBC) [Ratio] 13.8 % 11.5 - 15.0 % [facility] Hematocrit (Bld) [Volume fraction] 42.6 % 39.0 - 51.0 % [facility] Hemoglobin (Bld) [Mass/Vol] 14.4 g/dL 13.0 - 17.0 g/dL [facility] Immature granulocytes (Bld) [#/Vol] 0.03 10*3/uL [facility] Immature granulocytes/100 WBC (Bld) 0.3 % [facility] Lymphocytes (Bld) [#/Vol] 2.18 10*3/uL [facility] Lymphocytes/100 WBC (Bld) 24.8 % [facility] MCH (RBC) [Entitic mass] 32.0 pg 26.0 - 34.0 pg [facility] MCHC (RBC) [Mass/Vol] 33.8 g/dL 30.5 - 36.0 g/dL [facility] MCV (RBC) [Entitic vol] 94.7 fL 80.0 - 100.0 fL [facility] Monocytes (Bld) [#/Vol] 0.60 10*3/uL [facility] Monocytes/100 WBC (Bld) 6.8 % [facility] Neutrophils (Bld) [#/Vol] 5.80 10*3/uL [facility] Neutrophils/100 WBC (Bld) 66.1 % [facility] Nucleated RBC (Bld) [#/Vol] [facility] Nucleated RBC/100 WBC (Bld) [Ratio] 0.0 % /100 WBC [facility] Platelet mean volume (Bld) [Entitic vol] 10.2 fL 9.0 - 12.7 fL [facility] Platelets (Bld) [#/Vol] 314 10*3/uL [facility] RBC (Bld) [#/Vol] 4.50 10*6/uL 4.20 - 6.00 m/uL [facility] WBC (Bld) [#/Vol] 8.78 10*3/uL [facility] CT Chest W contrast Tristin IMPRESSION: 1. [...] any questions regarding this interpretation, please call [phone]. If you are unable to reach us at the number above, please feel free to contact [facility] at [phone]. DIVISION OF RADIOLOGY * * *Final Report* * * DATE OF EXAM: Oct 26 2023 10:05AM [facility] 0539 - CT CHEST W IVCON [...] findings. DIVISION OF RADIOLOGY Provider, [facility] Em[facility] - 10/26/2023 * * *Final Report* * * DATE OF EXAM: Oct 26 2023 10:05AM [facility] 0539 - CT CHEST W IVCON [...] any questions regarding this interpretation, please call [phone]. If you are unable to reach us at the number above, please feel free to contact [facility] at [phone]. [facility] CT Neck W contrast Tristin 05-1 IMPRESSION: Primary: 1: Expected post-treatment changes in the neck without evidence of recurrent disease in the primary site. Neck: 1: No evidence of abnormal lymph nodes. [email or web address] Transcribe Date/Time: Oct 26 2023 10:15A Dictated by: LIMA LIZ MD This examination was interpreted and the report reviewed and electronically signed by: LIMA LIZ MD on Oct 26 2023 10:35AM EST Thank you for allowing us to participate in the care of your patient. Should there be any questions regarding this interpretation, please call [phone]. If you are unable to reach us at the number above, please feel free to contact [facility] at [phone]. 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 Resected T1 N1 base [...] normal. Parotid and submandibular spaces are normal. [employer] spaces appear normal. Infrahyoid Neck: Hypopharynx, larynx, [...] are clear of focal consolidation or mass. 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 Resected T1 N1 base [...] normal. Parotid and submandibular spaces are normal. [employer] spaces appear normal. Infrahyoid Neck: Hypopharynx, larynx, [...] are clear of focal consolidation or mass. Rn Birthing (topogram) images: Noncontributory IMPRESSION IMPRESSION: Primary: 1: Expected post-treatment changes in the neck without evidence of recurrent disease in the primary site. Neck: 1: No evidence of abnormal lymph nodes. [email or web address] Transcribe Date/Time: Oct 26 2023 10:15A Dictated by: LIMA LIZ MD This examination was interpreted and the report reviewed and electronically signed by: (more content not included)... [facility] CT Neck W contrast IVOrdered By: Ccf Provider on 10-26-2023 [facility] Comprehensive metabolic 2000 panelOrdered By: Pauly Chan on 10-26-2023 Albumin [Mass/Vol] 4.3 g/dL 3.9 - 4.9 g/dL [facility] ALP [Catalytic activity/Vol] 75 U/L 38 - 113 U/L [facility] ALT [Catalytic activity/Vol] 10 U/L 10 - 54 U/L [facility] Anion gap [Moles/Vol] 8 mmol/L Low 9 - 18 mmol/L [facility] AST [Catalytic activity/Vol] 9 U/L Low 14 - 40 U/L [facility] Bilirubin [Mass/Vol] 0.5 mg/dL 0.2 - 1 .3 mg/dL [facility] Calcium [Mass/Vol] 9.9 mg/dL 8.5 - 10. 2 mg/dL [facility] Chloride [Moles/Vol] 106 mmol/L High 97 - 10 5 mmol/L [facility] CO2 [Moles/Vol] 27 mmol/L 22 - 30 mmol/L [facility] Creatinine [Mass/Vol] 1.01 mg/dL 0.73 - 1.22 mg/dL [facility] GFR/1.73 sq M.predicted among non-blacks MDRD (S/P/Bld) [Vol rate/Area] 85 mL/min/{1.73_m2} - PINF [facility] Comment on above: Estimated Glomerular Filtration [...] [Mass/Vol] 89 mg/dL 74 - 99 mg/dL [facility] Comment on above: The [place] Diab[employer] Association (ADA) provides guidance for [...] Standards of Medical Care in Diabetes 2016, [place] Diabetes Association. Diabetes Care. 2016.39(Suppl 1). Interpretation and review of laboratory results Abnormal [facility] Potassium [Moles/Vol] 4.0 mmol/L 3.7 - 5.1 mmol/L [facility] Protein [Mass/Vol] 6.4 g/dL 6.3 - 8.0 g/dL [facility] Sodium [Moles/Vol] 141 mmol/L 136 - 144 mmol/L [facility] Urea nitrogen [Mass/Vol] 16 mg/dL 9 - 24 mg/dL [facility] Eosinophils/100 WBC Auto (Bl d)on 10-26-2023 Eosinophils/100 WBC (Bld) 1.5 % [facility] Erythrocyte distribution wid th Auto (RBC) [Ratio]on 10-26-2023 Erythrocyte distribution width (RBC) [Ratio] 13.8 % 11.5-15.0 [facility] Hematocrit Auto (Bld) [Volum e fraction]on 10-26-2023 Hematocrit (Bld) [Volume fraction] 42.6 % 39.0-51.0 [facility] Hemoglobin [Mass/volume] in Bloodon 10-26-2023 Hemoglobin (Bld) [Mass/Vol] 14.4 g/dL 13.0-17.0 [facility] Laboratory - Chemistry and C hemistry - challengeon 10-26-2023 Albumin [Mass/Vol] 4.3 g/dL 3.9-4.9 [facility] ALP [Catalytic activity/Vol] 75 U/L 38-113 [facility] ALT [Catalytic activity/Vol] 10 U/L 10-54 [facility] AST [Catalytic activity/Vol] 9 U/L 14-40 [facility] Bilirubin [Mass/Vol] 0.5 mg/dL 0.2-1.3 [facility] Calcium [Mass/Vol] 9.9 mg/dL 8.5-10.2 [facility] Chloride [Moles/Vol] 106 mmol/L 97-105 [facility] CO2 [Moles/Vol] 27 mmol/L 22-30 [facility] Creatinine [Mass/Vol] 1.01 mg/dL 0.73-1.22 [facility] Glucose [Mass/Vol] 89 mg/dL 74-99 [facility] Comment on above: The [place] Diab[employer] s Association (ADA) provides guidance for [...] Standards of Medical Care in Diabetes 2016, [place] Diabetes Association. Diabetes Care. 2016.39(Suppl 1). Potassium [Moles/Vol] 4.0 mmol/L 3.7-5.1 [facility] Sodium [Moles/Vol] 141 mmol/L 136-144 [facility] Urea nitrogen [Mass/Vol] 16 mg/dL 9-24 [facility] Laboratory - Hematology and Cell countson 10-26-2023 Eosinophils (Bld) [#/Vol] 0.13 10*3/uL <0.46 [facility] Immature granulocytes (Bld) [#/Vol] 0.03 10*3/uL <0.10 [facility] Immature granulocytes/100 WBC (Bld) 0.3 % [facility] Leukocytes [#/volume] correc mone for nucleated erythrocytes in Blood by Automated counon 10-26-2023 WBC corrected for nucl RBC Auto (Bld) [#/Vol] 8.78 k/uL 3.70-11.00 [facility] Lymphocytes Auto (Bld) [#/Vo l]on 10-26-2023 Lymphocytes (Bld) [#/Vol] 2.18 10*3/uL 1.00-4.00 [facility] Lymphocytes/100 WBC Auto (Bl d)on 10-26-2023 Lymphocytes/100 WBC (Bld) 24.8 % [facility] MCH Auto (RBC) [Entitic mass ]on 10-26-2023 MCH (RBC) [Entitic mass] 32.0 pg 26.0-34.0 [facility] MCHC Auto (RBC) [Mass/Vol]on 10-26-2023 MCHC (RBC) [Mass/Vol] 33.8 g/dL 30.5-36.0 [facility] MCV Auto (RBC) [Entitic vol] on 10-26-2023 MCV (RBC) [Entitic vol] 94.7 fL 80.0-100.0 [facility] Monocytes Auto (Bld) [#/Vol] on 10-26-2023 Monocytes (Bld) [#/Vol] 0.60 10*3/uL <0.87 [facility] Monocytes/100 WBC Auto (Bld) on 10-26-2023 Monocytes/100 WBC (Bld) 6.8 % [facility] Neutrophils Auto (Bld) [#/Vo l]on 10-26-2023 Neutrophils (Bld) [#/Vol] 5.80 10*3/uL 1.45-7.50 [facility] Neutrophils/100 WBC Auto (Bl d)on 10-26-2023 Neutrophils/100 WBC (Bld) 66.1 % [facility] No Panel Informationon 10-25 [facility]iology [facility]narrative[facility] Estimated GFR (CKD-EPI) 85 mL/min/1.73m??? >=60 [facility] Comment on above: Estimated Glomerular Filtration [...] 10-26-2023 Nucleated RBC (Bld) [#/Vol] 10*3/uL <0.01 [facility] Nucleated erythrocytes [Pres ence] in Blood by Automated counton 10-26-2023 Nucleated RBC Auto Ql (Bld) 0.0 /100{WBC} [facility] Platelet mean volume Auto (B ld) [Entitic vol]on 10-26-2023 Platelet mean volume (Bld) [Entitic vol] 10.2 fL 9.0-12.7 [facility] Platelets Auto (Bld) [#/Vol] on 10-26-2023 Platelets (Bld) [#/Vol] 314 10*3/uL 150-400 [facility] Protein [Mass/volume] in Ser um or Plasmaon 10-26-2023 Protein [Mass/Vol] 6.4 g/dL 6.3-8.0 [facility] RBC Auto (Bld) [#/Vol]on RBC (Bld) [#/Vol] 4.50 10*6/uL 4.20-6.00 [facility] Serum or plasma anion gap de terminationon 10-26-2023 Anion gap [Moles/Vol] 8 mmol/L 9-18 [facility] Alanine aminotransferase [En zymatic activity/volume] in Serum or PlasmaOrdered By: Griselda Hastings on 10-09-2023 ALT [Catalytic activity/Vol] 8 U/L 7-52 [facility] Albumin [Mass/volume] in Ser um or Plasma by Bromocresol green (BCG) dye binding methoOrdered By: Griselda Hastings on 10-09-2023 Albumin BCG dye [Mass/Vol] 3.9 g/dL 3.5-5.7 [facility] Alkaline phosphatase [Enzyma tic activity/volume] in Serum or PlasmaOrdered By: Griselda Hastings on 10-09-2023 ALP [Catalytic activity/Vol] 59 U/L 34-104 [facility] Aspartate aminotransferase [ Enzymatic activity/volume] in Serum or PlasmaOrdered By: Griselda Hastings on 10-09-2023 AST [Catalytic activity/Vol] 7 U/L 13-39 [facility] Basophils Auto (Bld) [#/Vol] Ordered By: Griselda Hastings on 10-09-2023 Basophils (Bld) [#/Vol] 0.1 10*3/uL 0.0-0.2 [facility] Basophils/100 WBC Auto (Bld) Ordered By: Griselda Hastings on 10-09-2023 Basophils/100 WBC (Bld) 0.9 % . [facility] Bilirubin.total [Mass/volume ] in Serum or PlasmaOrdered By: Griselda Hastings on 10-09-2023 Bilirubin [Mass/Vol] 0.5 mg/dL 0.3-1.0 [facility] COVID-19 Detected/Not Detect edOrdered By: Griselda Hastings on 10-09-2023 SARS-CoV-2 (COVID-19) RNA JER+non-probe Ql (Nph) Not detected Not Detecte [facility] Comment on above: This is a duplicate RP2.1 COVID (PCR) result to be used for statistical tracking purpose only. Calcium [Mass/volume] in Ser um or PlasmaOrdered By: Griselda Hastings on 10-09-2023 Calcium [Mass/Vol] 9.5 mg/dL 8.6-10.3 [facility] Carbon dioxide, total [Moles /volume] in Serum or PlasmaOrdered By: Griselda Hastings on 10-09-2023 CO2 [Moles/Vol] 30.0 mmol/L 21.0-31.0 [facility] Chloride [Moles/volume] in [place] r[place] or PlasmaOrdered By: Griselda Hastings on 10-09-2023 Chloride [Moles/Vol] 103 mmol/L 98-107 [facility] Creatinine [Mass/volume] in Serum or PlasmaOrdered By: Griselda Hastings on 10-09-2023 Creatinine [Mass/Vol] 0.92 mg/dL 0.70-1.30 [facility] Eosinophils Auto (Bld) [#/Vo l]Ordered By: Griselda Hastings on 10-09-2023 Eosinophils (Bld) [#/Vol] 0.1 10*3/uL 0.0-0.45 [facility] Eosinophils/100 WBC Auto (Bl d)Ordered By: Griselda Hastings on 10-09-2023 Eosinophils/100 WBC (Bld) 1.0 % . [facility] Erythrocyte distribution wid th Auto (RBC) [Ratio]Ordered By: Griselda Hastings on 10-09-2023 Erythrocyte distribution width (RBC) [Ratio] 14.3 % 12.0-14.8 [facility] Globulin Calc (S) [Mass/Vol] Ordered By: Griselda Hastings on 10-09-2023 Globulin (S) [Mass/Vol] 2.0 g/dL [facility] Glucose [Mass/volume] in Ser um or PlasmaOrdered By: Griselda Hastings on 10-09-2023 Glucose [Mass/Vol] 84 mg/dL 70-100 [facility] Comment on above: ADA recommended refe rence rangeRandom Glucose Reference Range is dependent on time and content of last meal. Glucose of more than 200 mg/dL in a nonstressed, ambulatory subject supports the diagnosis of Diabetes Mellitus. Hematocrit Auto (Bld) [Volum e fraction]Ordered By: Griselda Hastings on 10-09-2023 Hematocrit (Bld) [Volume fraction] 41.9 % 38.8-50.0 [facility] Hemoglobin [Mass/volume] in BloodOrdered By: Griselda Hastings on 10-09-2023 Hemoglobin (Bld) [Mass/Vol] 14.4 g/dL 13.0-17.0 [facility] Leukocytes [#/volume] correc mone for nucleated erythrocytes in Blood by Automated counOrdered By: Griselda Hastings on 10-09-2023 WBC corrected for nucl RBC Auto (Bld) [#/Vol] 8.1 10*3/uL 4.1-10.5 [facility] Lymphocytes Auto (Bld) [#/Vo l]Ordered By: Griselda Hastings on 10-09-2023 Lymphocytes (Bld) [#/Vol] 2.7 10*3/uL 1.00-4.8 [facility] Lymphocytes/100 WBC Auto (Bl d)Ordered By: Griselda Hastings on 10-09-2023 Lymphocytes/100 WBC (Bld) 33.6 % . [facility] MCH Auto (RBC) [Entitic mass ]Ordered By: Griselda Hastings on 10-09-2023 MCH (RBC) [Entitic mass] 32.7 pg 27.5-35.2 [facility] MCHC Auto (RBC) [Mass/Vol]Or dered By: Griselda Hastings on 10-09-2023 MCHC (RBC) [Mass/Vol] 34.4 g/dL 32.5-35.6 [facility] MCV Auto (RBC) [Entitic vol] Ordered By: Griselda Hastings on 10-09-2023 MCV (RBC) [Entitic vol] 94.8 fL 83.5-101 [facility] Monocytes Auto (Bld) [#/Vol] Ordered By: Griselda Hastings on 10-09-2023 Monocytes (Bld) [#/Vol] 0.6 10*3/uL 0.0-0.8 [facility] Monocytes/100 WBC Auto (Bld) Ordered By: Griselda Hastings on 10-09-2023 Monocytes/100 WBC (Bld) 7.5 % . [facility] Neutrophils Auto (Bld) [#/Vo l]Ordered By: Griselda Hastings on 10-09-2023 Neutrophils (Bld) [#/Vol] 4.6 10*3/uL 1.8-7.7 [facility] Neutrophils/100 WBC Auto (Bl d)Ordered By: Griselda Hastings on 10-09-2023 Neutrophils/100 WBC (Bld) 57.0 % . [facility] No Panel InformationOrdered By: Griselda Hastings on 10-09-2023 Estimated GFR (CKD-EPI) > 60.0 mL/Min [facility] Creatinine Clearance (Chem N/A [facility] Nucleated erythrocytes [Pres ence] in Blood by Automated countOrdered By: Griselda Hastings on 10-09-2023 Nucleated RBC Auto Ql (Bld) 0.2 /100{WBC} 0-0.5 [facility] Platelet mean volume Auto (B ld) [Entitic vol]Ordered By: Griselda Hastings on 10-09-2023 Platelet mean volume (Bld) [Entitic vol] 8.3 fL 6.6-10.1 [facility] Platelets Auto (Bld) [#/Vol] Ordered By: Griselda Hastings on 10-09-2023 Platelets (Bld) [#/Vol] 349 10*3/uL 150-450 [facility] Potassium [Moles/volume] in Serum or PlasmaOrdered By: Griselda Hastings on 10-09-2023 Potassium [Moles/Vol] 4.5 mmol/L 3.5-5.1 [facility] Protein [Mass/volume] in Ser um or PlasmaOrdered By: Griselda Hastings on 10-09-2023 Protein [Mass/Vol] 5.9 g/dL 6.4-8.9 [facility] RBC Auto (Bld) [#/Vol]Ordere d By: Griselda Hastings on 10-09-2023 RBC (Bld) [#/Vol] 4.42 10*6/uL 3.90-5.60 [facility] Respiratory pathogens DNA an d RNA panel - Nasopharynx by JER with non-probe detectionOrdered By: Griselda Hastings on 10-09-2023 Respiratory pathogens DNA and RNA panel JER+non-probe (Nph) [facility] Serum or plasma albumin/glob ulin mass ratioOrdered By: Griselda Hastings on 10-09-2023 Albumin/Globulin [Mass ratio] 2.0 {ratio} [facility] Serum or plasma anion gap de terminationOrdered By: Griselda Hastings on 10-09-2023 Anion gap [Moles/Vol] 9.5 mmol/L 6.0-15.0 [facility] Sodium [Moles/volume] in Ser um or PlasmaOrdered By: Griselda Hastings on 10-09-2023 Sodium [Moles/Vol] 138 mmol/L 136-145 [facility] Urea nitrogen [Mass/volume] in Serum or PlasmaOrdered By: Griselda Hastings on 10-09-2023 Urea nitrogen [Mass/Vol] 14 mg/dL 7-25 [facility] WBC Auto (Bld) [#/Vol]Ordere d By: Griselda Hastings on 10-09-2023 WBC (Bld) [#/Vol] 8.1 10*3/uL 4.1-10.5 [facility] Study Interpretation of outs jeffrey studyon [...] patchy increased T2 signal throughout the right jose and in the medial left jose. This is not associated with any hemorrhage [...] 1. Abnormal increased T2 signal in the jose, right greater than left, worrisome for low-grade malignancy such as a glioma. Infectious or inflammatory process cannot be excluded, although this seems unlikely given the absence of enhancement. 2. No acute intracranial hemorrhage, infarction, mass effect or midline shift elsewhere in the brain Interpreted by: Vitor Hickman MD Signed by: Vitor Hickman MD 08/01/23 Final result [facility] MRI CERVICAL SPINE WO CONTRA STon [...] Vitor Hickman MD 08/01/23 Final result [facility] COVID + FLU Quick Testingon 07-02-2023 SARS-CoV-2 (COVID-19) RNA JER+probe Ql (Unsp spec) Negative [facility] [employer] Other COVID + FLU Quick Testing Negative [facility] [employer] Other Quick Strepon 07-02-2023 S. pyogenes Org specific cx Ql (Throat) Negative [employer] Other Quick Strep [facility] [employer] Other RSVon 07-02-2023 RSV Ag IA Ql (Unsp spec) Negative [facility] [employer] Other Creatinine [Mass/volume] in Serum or PlasmaOrdered By: Ruddy Harvey on 05-07-2023 Creatinine [Mass/Vol] 0.91 mg/dL 0.70-1.30 [facility] No Panel InformationOrdered By: Ruddy Harvey on 05-07-2023 Estimated GFR (CKD-EPI) > 60.0 mL/Min [facility] Creatinine Clearance (Chem 83.52 [facility] Urea nitrogen [Mass/volume] in Serum or PlasmaOrdered By: Ruddy Harvey on 05-07-2023 Urea nitrogen [Mass/Vol] 15 mg/dL 01-09 [facility] Creatinine (Bld) [Mass/Vol]O rdered By: Nikole Mota on 05-04-2023 Creatinine [Mass/Vol] 0.9 mg/dL 0.6-1.3 [facility] Comment on above: ER/ESD physician is notified/shown all ISTAT results.Critical values may be confirmed by laboratory testing ifdeemed necessary by ER attending doctor. No Panel InformationOrdered By: Nikole Mota on 05-04-2023 Bedside Estimated GFR (eGFR) > 60.0 [facility] Alanine aminotransferase [En zymatic activity/volume] in Serum or PlasmaOrdered By: Griselda Hastings on 03-30-2023 ALT [Catalytic activity/Vol] 10 U/L [facility] Albumin [Mass/volume] in Ser um or Plasma by Bromocresol green (BCG) dye binding methoOrdered By: Griselda Hastings on 03-30-2023 Albumin BCG dye [Mass/Vol] 4.2 g/dL 3.5-5.7 [facility] Alkaline phosphatase [Enzyma tic activity/volume] in Serum or PlasmaOrdered By: Griselda Hastings on 03-30-2023 ALP [Catalytic activity/Vol] 61 U/L 34-104 [facility] Aspartate aminotransferase [ Enzymatic activity/volume] in Serum or PlasmaOrdered By: Griselda Hastings on 03-30-2023 AST [Catalytic activity/Vol] 8 U/L 13-39 [facility] Basophils Auto (Bld) [#/Vol] Ordered By: Griselda Hastings on 03-30-2023 Basophils (Bld) [#/Vol] 0.1 10*3/uL 0.0-0.2 [facility] Basophils/100 WBC Auto (Bld) Ordered By: Griselda Hastings on 03-30-2023 Basophils/100 WBC (Bld) 0.8 % . [facility] Bilirubin.total [Mass/volume ] in Serum or PlasmaOrdered By: Griselda Hastings on 03-30-2023 Bilirubin [Mass/Vol] 0.9 mg/dL 0.3-1.0 [facility] Calcium [Mass/volume] in Ser um or PlasmaOrdered By: Griselda Hastings on 03-30-2023 Calcium [Mass/Vol] 9.1 mg/dL 8.6-10.3 [facility] Carbon dioxide, total [Moles /volume] in Serum or PlasmaOrdered By: Griselda Hastings on 03-30-2023 CO2 [Moles/Vol] 27.0 mmol/L 21.0-31.0 [facility] Chloride [Moles/volume] in S r[place] or PlasmaOrdered By: Griselda Hastings on 03-30-2023 Chloride [Moles/Vol] 103 mmol/L 98-107 [facility] Cholesterol [Mass/volume] in Serum or PlasmaOrdered By: Griselda Hastings on 03-30-2023 Cholesterol [Mass/Vol] 224 mg/dL 140-200 [facility] Comment on above: Chol less than 200 m g/dl low riskChol 201-239 mg/dl borderline riskChol 240 mg/dl and greater high risk Cholesterol in LDL Calc [Mas s/Vol]Ordered By: Griselda Hastings on 03-30-2023 Cholesterol in LDL [Mass/Vol] 148 mg/dL 0-100 [facility] Comment on above: LDL ATP III CLASSIFI CATIONLDL less than 100 mg/dL OptimalLDL 100-129 mg/dL Near or above optimalLDL 130-159 mg/dL Borderline highLDL 160-189 mg/dL HighLDL greater than 189 mg/dL Very high Cholesterol in VLDL Calc [Ma ss/Vol]Ordered By: Griselda Hastings on 03-30-2023 Cholesterol in VLDL [Mass/Vol] 31 mg/dL [facility] Creatinine [Mass/volume] in Serum or PlasmaOrdered By: Griselda Hastings on 03-30-2023 Creatinine [Mass/Vol] 0.82 mg/dL 0.70-1.30 [facility] Eosinophils Auto (Bld) [#/Vo l]Ordered By: Griselda Hastings on 03-30-2023 Eosinophils (Bld) [#/Vol] 0.1 10*3/uL 0.0-0.45 [facility] Eosinophils/100 WBC Auto (Bl d)Ordered By: Griselda Hastings on 03-30-2023 Eosinophils/100 WBC (Bld) 0.6 % . [facility] Erythrocyte distribution wid th Auto (RBC) [Ratio]Ordered By: Griselda Hastings on 03-30-2023 Erythrocyte distribution width (RBC) [Ratio] 14.1 % 12.0-14.8 [facility] Globulin Calc (S) [Mass/Vol] Ordered By: Griselda Hastings on 03-30-2023 Globulin (S) [Mass/Vol] 1.9 g/dL [facility] Glucose [Mass/volume] in Ser um or PlasmaOrdered By: Griselda Hastings on 03-30-2023 Glucose [Mass/Vol] 83 mg/dL 70-100 [facility] Comment on above: ADA recommended refe rence rangeRandom Glucose Reference Range is dependent on time and content of last meal. Glucose of more than 200 mg/dL in a nonstressed, ambulatory subject supports the diagnosis of Diabetes Mellitus. Hematocrit Auto (Bld) [Volum e fraction]Ordered By: Griselda Hastings on 03-30-2023 Hematocrit (Bld) [Volume fraction] 41.4 % 38.8-50.0 [facility] Hemoglobin [Mass/volume] in BloodOrdered By: Griselda Hastings on 03-30-2023 Hemoglobin (Bld) [Mass/Vol] 14.4 g/dL 13.0-17.0 [facility] Leukocytes [#/volume] correc mone for nucleated erythrocytes in Blood by Automated counOrdered By: Griselda Hastings on 03-30-2023 WBC corrected for nucl RBC Auto (Bld) [#/Vol] 10.0 10*3/uL 4.1-10.5 [facility] Lymphocytes Auto (Bld) [#/Vo l]Ordered By: Griselda Hastings on 03-30-2023 Lymphocytes (Bld) [#/Vol] 1.7 10*3/uL 1.00-4.8 [facility] Lymphocytes/100 WBC Auto (Bl d)Ordered By: Griselda Hastings on 03-30-2023 Lymphocytes/100 WBC (Bld) 16.8 % . [facility] MCH Auto (RBC) [Entitic mass ]Ordered By: Griselda Hastings on 03-30-2023 MCH (RBC) [Entitic mass] 33.9 pg 27.5-35.2 [facility] MCHC Auto (RBC) [Mass/Vol]Or dered By: Griselda Hastings on 03-30-2023 MCHC (RBC) [Mass/Vol] 34.9 g/dL 32.5-35.6 [facility] MCV Auto (RBC) [Entitic vol] Ordered By: Griselda Hastings on 03-30-2023 MCV (RBC) [Entitic vol] 97.1 fL 83.5-101 [facility] Monocytes Auto (Bld) [#/Vol] Ordered By: Griselda Hastings on 03-30-2023 Monocytes (Bld) [#/Vol] 0.8 10*3/uL 0.0-0.8 [facility] Monocytes/100 WBC Auto (Bld) Ordered By: Griselda Hastings on 03-30-2023 Monocytes/100 WBC (Bld) 8.0 % . [facility] Neutrophils Auto (Bld) [#/Vo l]Ordered By: Griselda Hastings on 03-30-2023 Neutrophils (Bld) [#/Vol] 7.3 10*3/uL 1.8-7.7 [facility] Neutrophils/100 WBC Auto (Bl d)Ordered By: Griselda Hastings on 03-30-2023 Neutrophils/100 WBC (Bld) 73.8 % . [facility] No Panel InformationOrdered By: Griselda Hastings on 03-30-2023 Estimated GFR (CKD-EPI) > 60.0 mL/Min [facility] Creatinine Clearance (Chem N/A [facility] Nucleated erythrocytes [Pres ence] in Blood by Automated countOrdered By: Griselda Hastings on 03-30-2023 Nucleated RBC Auto Ql (Bld) 0.1 /100{WBC} 0-0.5 [facility] Platelet mean volume Auto (B ld) [Entitic vol]Ordered By: Griselda Hastings on 03-30-2023 Platelet mean volume (Bld) [Entitic vol] 9.2 fL 6.6-10.1 [facility] Platelets Auto (Bld) [#/Vol] Ordered By: Griselda Hastings on 03-30-2023 Platelets (Bld) [#/Vol] 221 10*3/uL 150-450 [facility] Potassium [Moles/volume] in Serum or PlasmaOrdered By: Griselda Hastings on 03-30-2023 Potassium [Moles/Vol] 4.1 mmol/L 3.5-5.1 [facility] Protein [Mass/volume] in Ser um or PlasmaOrdered By: Griselda Hastings on 03-30-2023 Protein [Mass/Vol] 6.1 g/dL 6.4-8.9 [facility] RBC Auto (Bld) [#/Vol]Ordere d By: Griselda Hastings on 03-30-2023 RBC (Bld) [#/Vol] 4.26 10*6/uL 3.90-5.60 [facility] Serum or plasma albumin/glob ulin mass ratioOrdered By: Griselda Hastings on 03-30-2023 Albumin/Globulin [Mass ratio] 2.2 {ratio} [facility] Serum or plasma anion gap de terminationOrdered By: Griselda Hastings on 03-30-2023 Anion gap [Moles/Vol] 12.1 mmol/L 6.0-15.0 [facility] Serum or plasma high density lipoprotein (HDL) cholesterol measurementOrdered By: Griselda Hastings on 03-30-2023 Cholesterol in HDL [Mass/Vol] 44 mg/dL 23-92 [facility] Comment on above: HDL CHOL ATP-III CLA SSIFICATION Cardiovascular RiskHDL > or equal to 60 mg/dL LOWHDL < 40 mg/dL HIGH Serum or plasma total choles terol/high density lipoprotein (HDL) cholesterol mass ratOrdered By: Griselda Hastings on 03-30-2023 Cholesterol.total/Chol esterol in HDL [Mass ratio] 5.1 {ratio} <5.0 [facility] Sodium [Moles/volume] in Ser um or PlasmaOrdered By: Griselda Hastings on 03-30-2023 Sodium [Moles/Vol] 138 mmol/L 136-145 [facility] Thyrotropin [Units/volume] i n Serum or PlasmaOrdered By: Griselda Hastings on 03-30-2023 TSH Qn 0.93 m[IU]/L 0.45-5.33 [facility] Triglyceride [Mass/volume] i n Serum or PlasmaOrdered By: Griselda Hastings on 03-30-2023 Triglyceride [Mass/Vol] 159 mg/dL 0-149 [facility] Comment on above: TRIG ATP III CLASSIF ICATIONTRIG less than 150 mg/dL NormalTRIG 150-199 mg/dL Borderline highTRIG 200-500 mg/dL High TRIG greater than 500 mg/dL Very highStandard traceable to the Center for Disease Conrtrol and Prevention (CDC) test method. Urea nitrogen [Mass/volume] in Serum or PlasmaOrdered By: Griselda Hastings on 03-30-2023 Urea nitrogen [Mass/Vol] 10 mg/dL 7-25 [facility] WBC Auto (Bld) [#/Vol]Ordere d By: Griselda Hastings on 03-30-2023 WBC (Bld) [#/Vol] 10.0 10*3/uL 4.1-10.5 [facility] COVID-19 SOFIAOrdered By: Brandyn Gaytan on 02-26-2023 SARS-CoV+SARS-CoV-2 (COVID-19) Ag IA.rapid Ql (Resp) Negative Negative [facility] Comment on above: This is a duplicate Anna SARS Antigen (JAMILA) result to be used for statistical tracking purpose only. No Panel InformationOrdered By: Daniel Gaytan on 02-26-2023 SARS Antigen (LFIA) [facility] SARS Antigen (LFIA) [facility] No Panel Informationon 12-28 XR Pain Management C ase (Reference Range: not available) *FINAL Date of Service: 12/28/2022 08:49 Adm #: [id number] Reading Dr:RICARDO CAPPS Signoff Dr: RICARDO CAPPS PROCEDURE: PAIN MANAGEMENT CASE - BXR 0999 REASON FOR EXAM: SPONDYLOSIS W/O MYELOPATHY OR RADICULOPATHY, CERVICAL REGION RESULT: Patient Name: SHANTEL MELENDEZ STUDY: PAIN MANAGEMENT CASE INDICATION: SPONDYLOSIS W/O MYELOPATHY OR RADICULOPATHY, CERVICAL REGION COMPARISON: None. ACCESSION NUMBER(S): [id number] ORDERING CLINICIAN: LIMA JOSEPH TECHNIQUE: See below: FINDINGS: Fluoroscopy was provided during therapeutic puncture in the region of the cervical spine for pain management. Total fluoroscopy time: 14.56mgy, images: 4. IMPRESSION: Fluoroscopy for pain management. Dictation workstation: [id number] Original Interpreting Physician: RICARDO CAPPS M.D. Original Transcribed by/Date: MMODAL Dec 28 2022 6:14A Original Electronically Signed by/Date: RICARDO CAPPS M.D. Dec 28 2022 9:04A Addendum Interpreting Physician: Addendum Transcribed by/Date: NO ADDENDUM Addendum Electronically Signed by/Date: [facility] [employer]Solar Quick Strepon 12-05-2022 S. pyogenes Org specific cx Ql (Throat) Negative [employer] Other App[employer] Strep MetaSolv Other CT Chest W contrast Tristin IMPRESSION: [...] any questions regarding this interpretation, please call [phone]. If you are unable to reach us at the number above, please feel free to contact [facility] at [phone]. DIVISION OF RADIOLOGY * * *Final Report* * * DATE OF EXAM: Oct 27 2022 11:44AM [facility] 0539 - CT CHEST W IVCON [...] No abnormality in the imaged upper abdomen. Rn Birthing (topogram) images: No additional findings. DIVISION OF RADIOLOGY Provider, [facility] - 10/30/2022 * * *Final Report* * * DATE OF EXAM: Oct 27 2022 11:44AM [facility] 0539 - CT CHEST W IVCON [...] No abnormality in the imaged upper abdomen. Rn Birthing (topogram) images: No additional findings. IMPRESSION IMPRESSION: [...] any questions regarding this interpretation, please call [phone]. If you are unable to reach us at the number above, please feel free to contact [facility] at [phone]. [facility] CBC W Auto Differential pane l (Bld)on 10-27-2022 Basophils (Bld) [#/Vol] 0.03 10*3/uL [facility] Basophils/100 WBC (Bld) 0.3 % [facility] Differential cell count method Nom (Bld) Auto [facility] Eosinophils (Bld) [#/Vol] 0.06 10*3/uL [facility] Eosinophils/100 WBC (Bld) 0.7 % [facility] Erythrocyte distribution width (RBC) [Ratio] 14.0 % 11.5 - 15.0 % [facility] Hematocrit (Bld) [Volume fraction] 43.5 % 39.0 - 51.0 % [facility] Hemoglobin (Bld) [Mass/Vol] 14.5 g/dL 13.0 - 17.0 g/dL [facility] Immature granulocytes (Bld) [#/Vol] 0.03 10*3/uL [facility] Immature granulocytes/100 WBC (Bld) 0.3 % [facility] Lymphocytes (Bld) [#/Vol] 2.00 10*3/uL [facility] Lymphocytes/100 WBC (Bld) 21.9 % [facility] MCH (RBC) [Entitic mass] 31.3 pg 26.0 - 34.0 pg [facility] MCHC (RBC) [Mass/Vol] 33.3 g/dL 30.5 - 36.0 g/dL [facility] MCV (RBC) [Entitic vol] 93.8 fL 80.0 - 100.0 fL [facility] Monocytes (Bld) [#/Vol] 0.53 10*3/uL [facility] Monocytes/100 WBC (Bld) 5.8 % [facility] Neutrophils (Bld) [#/Vol] 6.47 10*3/uL [facility] Neutrophils/100 WBC (Bld) 71.0 % [facility] Nucleated RBC (Bld) [#/Vol] [facility] Nucleated RBC/100 WBC (Bld) [Ratio] 0.0 % /100 WBC [facility] Platelet mean volume (Bld) [Entitic vol] 10.8 fL 9.0 - 12.7 fL [facility] Platelets (Bld) [#/Vol] 253 10*3/uL [facility] RBC (Bld) [#/Vol] 4.64 10*6/uL 4.20 - 6.00 m/uL [facility] WBC (Bld) [#/Vol] 9.12 10*3/uL [facility] CT Neck W contrast Tristin 05- IMPRESSION: Primary NIRADS Category: 1. Expected post-treatment changes in the neck without evidence of recurrent disease in the primary site. Neck NIRADS Category: 1. No evidence of abnormal lymph nodes. [email or web address] Transcribe Date/Time: Oct 27 2022 11:56A Dictated by: KALPANA HAMPTON MD This examination was interpreted and the report reviewed and electronically signed by: KALPANA HAMPTON MD on Oct 27 2022 12:14PM EST Thank you for allowing us to participate in the care of your patient. Should there be any questions regarding this interpretation, please call [phone]. If you are unable to reach us at the number above, please feel free to contact [facility] at [phone]. 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 Parotid and submandibular spaces are normal. [employer] Assembler spaces appear normal. Infrahyoid Neck: Hypopharynx, larynx, [...] consolidation or mass. 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 Parotid and submandibular spaces are normal. Gold Frame Assembler spaces appear normal. Infrahyoid Neck: Hypopharynx, larynx, [...] evidence of abnormal lymph nodes. [email or web address] Transcribe Date/Time: Oct 27 2022 11:56A Dictated by: KALPANA HAMPTON MD This examination was interpreted and the report reviewed and electronically signed by: KALPANA HAMPTON MD on Oct 27 2022 12:14PM EST Thank you for allowing us to participate in the care of your patient. Should there be any questions regarding this interpretation, please call [phone]. If you are unable to reach us at the number above, please feel free to contact [facility] at [phone]. [facility] CT Neck W contrast IVOrdered By: [facility] Provider on 10-27-2022 [facility] Comprehensive metabolic 2000 panelOrdered By: Kelly Goodson on 10-27-2022 Albumin [Mass/Vol] 4.3 g/dL 3.9 - 4.9 g/dL [facility] ALP [Catalytic activity/Vol] 89 U/L 38 - 113 U/L [facility] ALT [Catalytic activity/Vol] 7 U/L Low 10 - 54 U/L [facility] Anion gap [Moles/Vol] 10 mmol/L 9 - 18 mmol/L [facility] AST [Catalytic activity/Vol] 8 U/L Low 14 - 40 U/L [facility] Bilirubin [Mass/Vol] 0.3 mg/dL 0.2 - 1 .3 mg/dL [facility] Calcium [Mass/Vol] 9.6 mg/dL 8.5 - 10. 2 mg/dL [facility] Chloride [Moles/Vol] 104 mmol/L 97 - 10 5 mmol/L [facility] CO2 [Moles/Vol] 27 mmol/L 22 - 30 mmol/L [facility] Creatinine [Mass/Vol] 0.93 mg/dL 0.73 - 1.22 mg/dL [facility] GFR/1.73 sq M.predicted among non-blacks MDRD (S/P/Bld) [Vol rate/Area] 95 mL/min/{1.73_m2} - PINF [facility] Comment on above: Estimated Glomerular Filtration [...] [Mass/Vol] 98 mg/dL 74 - 99 mg/dL [facility] Comment on above: The [place] Diab[employer] s Association (ADA) provides guidance for [...] Standards of Medical Care in Diabetes 2016, [place] Diabetes Association. Diabetes Care. 2016.39(Suppl 1). Interpretation and review of laboratory results Abnormal [facility] Potassium [Moles/Vol] 4.5 mmol/L 3.7 - 5.1 mmol/L [facility] Protein [Mass/Vol] 6.6 g/dL 6.3 - 8.0 g/dL [facility] Sodium [Moles/Vol] 141 mmol/L 136 - 144 mmol/L [facility] Urea nitrogen [Mass/Vol] 12 mg/dL 9 - 24 mg/dL [facility] No Panel Informationon 10-27 Radiology Study observation (narrative) [facility] Alanine aminotransferase [En zymatic activity/volume] in Serum or PlasmaOrdered By: Griselda Hastings on 10-24-2022 ALT [Catalytic activity/Vol] 7 U/L 7-52 [facility] Albumin [Mass/volume] in Ser um or Plasma by Bromocresol green (BCG) dye binding methoOrdered By: Griselda Hastings on 10-24-2022 Albumin BCG dye [Mass/Vol] 4.2 g/dL 3.5-5.7 [facility] Alkaline phosphatase [Enzyma tic activity/volume] in Serum or PlasmaOrdered By: Griselda Hastings on 10-24-2022 ALP [Catalytic activity/Vol] 76 U/L 34-104 [facility] Aspartate aminotransferase [ Enzymatic activity/volume] in Serum or PlasmaOrdered By: Griselda Hastings on 10-24-2022 AST [Catalytic activity/Vol] 10 U/L 13-39 [facility] Basophils Auto (Bld) [#/Vol] Ordered By: Griselda Hastings on 10-24-2022 Basophils (Bld) [#/Vol] 0.0 10*3/uL 0.0-0.2 [facility] Basophils/100 WBC Auto (Bld) Ordered By: Griselda Hastings on 10-24-2022 Basophils/100 WBC (Bld) 0.9 % . [facility] Bilirubin.total [Mass/volume ] in Serum or PlasmaOrdered By: Griselda Hastings on 10-24-2022 Bilirubin [Mass/Vol] 0.4 mg/dL 0.3-1.0 [facility] Calcium [Mass/volume] in Ser um or PlasmaOrdered By: Griselda Hastings on 10-24-2022 Calcium [Mass/Vol] 9.1 mg/dL 8.6-10.3 [facility] Carbon dioxide, total [Moles /volume] in Serum or PlasmaOrdered By: Griselda Hastings on 10-24-2022 CO2 [Moles/Vol] 28.3 mmol/L 21.0-31.0 [facility] Chloride [Moles/volume] in S rica or PlasmaOrdered By: Griselda Hastings on 10-24-2022 Chloride [Moles/Vol] 105 mmol/L 98-107 [facility] Cholesterol [Mass/volume] in Serum or PlasmaOrdered By: Griselda Hastings on 10-24-2022 Cholesterol [Mass/Vol] 240 mg/dL 140-200 [facility] Comment on above: Chol less than 200 m g/dl low riskChol 201-239 mg/dl borderline riskChol 240 mg/dl and greater high risk Cholesterol in LDL Calc [Mas s/Vol]Ordered By: Griselda Hastings on 10-24-2022 Cholesterol in LDL [Mass/Vol] 169 mg/dL 0-100 [facility] Comment on above: LDL ATP III CLASSIFI CATIONLDL less than 100 mg/dL OptimalLDL 100-129 mg/dL Near or above optimalLDL 130-159 mg/dL Borderline highLDL 160-189 mg/dL HighLDL greater than 189 mg/dL Very high Cholesterol in VLDL Calc [Ma ss/Vol]Ordered By: Griselda Hastings on 10-24-2022 Cholesterol in VLDL [Mass/Vol] 35 mg/dL [facility] Creatinine [Mass/volume] in Serum or PlasmaOrdered By: Griselda Hastings on 10-24-2022 Creatinine [Mass/Vol] 0.88 mg/dL 0.70-1.30 [facility] Eosinophils Auto (Bld) [#/Vo l]Ordered By: Griselda Hastings on 10-24-2022 Eosinophils (Bld) [#/Vol] 0.1 10*3/uL 0.0-0.45 [facility] Eosinophils/100 WBC Auto (Bl d)Ordered By: Griselda Hastings on 10-24-2022 Eosinophils/100 WBC (Bld) 2.0 % . [facility] Erythrocyte distribution wid th Auto (RBC) [Ratio]Ordered By: Griselda Hastings on 10-24-2022 Erythrocyte distribution width (RBC) [Ratio] 14.7 % 12.0-14.8 [facility] Globulin Calc (S) [Mass/Vol] Ordered By: Griselda Hastings on 10-24-2022 Globulin (S) [Mass/Vol] 2.1 g/dL [facility] Glucose [Mass/volume] in Ser um or PlasmaOrdered By: Griselda Hastings on 10-24-2022 Glucose [Mass/Vol] 82 mg/dL 70-100 [facility] Comment on above: ADA recommended refe rence rangeRandom Glucose Reference Range is dependent on time and content of last meal. Glucose of more than 200 mg/dL in a nonstressed, ambulatory subject supports the diagnosis of Diabetes Mellitus. Hematocrit Auto (Bld) [Volum e fraction]Ordered By: Griselda Hastings on 10-24-2022 Hematocrit (Bld) [Volume fraction] 43.4 % 38.8-50.0 [facility] Hemoglobin [Mass/volume] in BloodOrdered By: Griselda Hastings on 10-24-2022 Hemoglobin (Bld) [Mass/Vol] 14.5 g/dL 13.0-17.0 [facility] Leukocytes [#/volume] correc mone for nucleated erythrocytes in Blood by Automated counOrdered By: Griselda Hastings on 10-24-2022 WBC corrected for nucl RBC Auto (Bld) [#/Vol] 5.0 10*3/uL 4.1-10.5 [facility] Lymphocytes Auto (Bld) [#/Vo l]Ordered By: Griselda Hastings on 10-24-2022 Lymphocytes (Bld) [#/Vol] 2.0 10*3/uL 1.00-4.8 [facility] Lymphocytes/100 WBC Auto (Bl d)Ordered By: Griselda Hastings on 10-24-2022 Lymphocytes/100 WBC (Bld) 39.8 % . [facility] MCH Auto (RBC) [Entitic mass ]Ordered By: Griselda Hastings on 10-24-2022 MCH (RBC) [Entitic mass] 31.5 pg 27.5-35.2 [facility] MCHC Auto (RBC) [Mass/Vol]Or dered By: Griselda Hastings on 10-24-2022 MCHC (RBC) [Mass/Vol] 33.5 g/dL 32.5-35.6 [facility] MCV Auto (RBC) [Entitic vol] Ordered By: Griselda Hastings on 10-24-2022 MCV (RBC) [Entitic vol] 94.0 fL 83.5-101 [facility] Monocytes Auto (Bld) [#/Vol] Ordered By: Griselda Hastings on 10-24-2022 Monocytes (Bld) [#/Vol] 0.3 10*3/uL 0.0-0.8 [facility] Monocytes/100 WBC Auto (Bld) Ordered By: Griselda Hastings on 10-24-2022 Monocytes/100 WBC (Bld) 5.4 % . [facility] Neutrophils Auto (Bld) [#/Vo l]Ordered By: Griselda Hastings on 10-24-2022 Neutrophils (Bld) [#/Vol] 2.6 10*3/uL 1.8-7.7 [facility] Neutrophils/100 WBC Auto (Bl d)Ordered By: Griselda Hastings on 10-24-2022 Neutrophils/100 WBC (Bld) 51.9 % . [facility] No Panel InformationOrdered By: Griselda Hastings on 10-24-2022 Estimated GFR (CKD-EPI) > 60.0 mL/Min [facility] Creatinine Clearance (Chem N/A [facility] Nucleated erythrocytes [Pres ence] in Blood by Automated countOrdered By: Griselda Hastings on 10-24-2022 Nucleated RBC Auto Ql (Bld) 0.1 /100{WBC} 0-0.5 [facility] Platelet mean volume Auto (B ld) [Entitic vol]Ordered By: Griselda Hastings on 10-24-2022 Platelet mean volume (Bld) [Entitic vol] 9.6 fL 6.6-10.1 [facility] Platelets Auto (Bld) [#/Vol] Ordered By: Griselda Hastings on 10-24-2022 Platelets (Bld) [#/Vol] 247 10*3/uL 150-450 [facility] Potassium [Moles/volume] in Serum or PlasmaOrdered By: Griselda Hastings on 10-24-2022 Potassium [Moles/Vol] 4.0 mmol/L 3.5-5.1 [facility] Prostate specific Ag [Mass/v olume] in Serum or PlasmaOrdered By: Griselda Hastings on 10-24-2022 Prostate specific Ag [Mass/Vol] 0.370 ng/mL 0.000-4.00 0 [facility] Protein [Mass/volume] in Ser um or PlasmaOrdered By: Griselda Hastings on 10-24-2022 Protein [Mass/Vol] 6.3 g/dL 6.4-8.9 [facility] RBC Auto (Bld) [#/Vol]Ordere d By: Griselda Hastings on 10-24-2022 RBC (Bld) [#/Vol] 4.61 10*6/uL 3.90-5.60 [facility] Serum or plasma albumin/glob ulin mass ratioOrdered By: Griselda Hastings on 10-24-2022 Albumin/Globulin [Mass ratio] 2.0 {ratio} [facility] Serum or plasma anion gap de terminationOrdered By: Griselda Hastings on 10-24-2022 Anion gap [Moles/Vol] 11.7 mmol/L 6.0-15.0 [facility] Serum or plasma high density lipoprotein (HDL) cholesterol measurementOrdered By: Griselda Hastings on 10-24-2022 Cholesterol in HDL [Mass/Vol] 36 mg/dL 29-71 [facility] Comment on above: HDL CHOL ATP-III CLA SSIFICATION Cardiovascular RiskHDL > or equal to 60 mg/dL LOWHDL < 40 mg/dL HIGH Serum or plasma total choles terol/high density lipoprotein (HDL) cholesterol mass ratOrdered By: Griselda Hastings on 10-24-2022 Cholesterol.total/Chol esterol in HDL [Mass ratio] 6.7 {ratio} <5.0 [facility] Sodium [Moles/volume] in Ser um or PlasmaOrdered By: Griselda Hastings on 10-24-2022 Sodium [Moles/Vol] 141 mmol/L 136-145 [facility] Thyrotropin [Units/volume] i n Serum or PlasmaOrdered By: Griselda Hastings on 10-24-2022 TSH Qn 1.26 m[IU]/L 0.45-5.33 [facility] Triglyceride [Mass/volume] i n Serum or PlasmaOrdered By: Grieslda Hastings on 10-24-2022 Triglyceride [Mass/Vol] 175 mg/dL 0-149 [facility] Comment on above: TRIG ATP III CLASSIF ICATIONTRIG less than 150 mg/dL NormalTRIG 150-199 mg/dL Borderline highTRIG 200-500 mg/dL High TRIG greater than 500 mg/dL Very highStandard traceable to the Center for Disease Conrtrol and Prevention (CDC) test method. Urea nitrogen [Mass/volume] in Serum or PlasmaOrdered By: Griselda Hastings on 10-24-2022 Urea nitrogen [Mass/Vol] 15 mg/dL 7-25 [facility] WBC Auto (Bld) [#/Vol]Ordere d By: Griselda Hastings on 10-24-2022 WBC (Bld) [#/Vol] 5.0 10*3/uL 4.1-10.5 [facility] BRIEF OP NOTon 09-28-2022 BRIEF OP NOT HNO ID: [id number] Author: Flores Cat APRN.BINDERY MACHINE SETTER Service: Interventional Radiology Author Type: Nurse Practitioner Type: Brief Op Note Filed: 09/28/2022 3:14 PM Note Text: BRIEF OPERATIVE / PROCEDURE NOTE LOG ID: [id number] SURGERY/PROCEDURE DATE: 09/28/2022 INCISION/PROCEDURE START TIME: 1:58 PM INCISION CLOSE/PROCEDURE END TIME: 2:27 PM SURGEON(S)/PROCEDURALIST( S) AND LOGGING TRACTOR OPERATOR(S): Surgeon(s) and Role: * Flores Cat APRN.BINDERY MACHINE SETTER - Primary No Additional Staff SURGERY/PROCEDURE(S): LP with fluoroscopy ANESTHESIA: Local FINDINGS: attempted access at L2-L3, unable to advance needle to subarachnoid space. Next access L4-L5. Clear CSF. OP 15. CP < 9. A total of 24 cc of CSF was removed. ESTIMATED BLOOD LOSS: trace SPECIMENS: 11 mL of clear CSF COMPLICATIONS: None PRE-OP/PRE-PROCEDURE DIAGNOSIS: headache POST-OP/POST-PROCEDURE DIAGNOSIS: Same as Preop SIGNATURE: Flores Cat APRN.BINDERY MACHINE SETTER PATIENT NAME: Shantel Melendez DATE: September 28, 2022 TIME: 3:10 PM [facility] IR LUMBAR PUNCTURE DIAGon IR LUMBAR PUNCTURE DIAG * * *Final Report* * * DATE OF EXAM: Sep 28 2022 2:41PM [facility] 7594 - IR LUMBAR PUNCTURE DIAG [...] guidance was performed in conjunction with the cardiac cath lab radiology technologist. Plane A, Air Kerma: 20.0 mGy Dose Area Product (DAP): 00297.1 mGy*cm2 Fluoro time: 3:54 min: sec Post-Procedure: [...] LUMBAR PUNCTURE. The procedure was performed by: Flores Cat APRN.CNP Pipe Line Maintenance Supervisor: HARPER Transcribe Date/Time: Sep 28 2022 3:15P Dictated by : FLORES CAT CNP This examination was interpreted and the report reviewed and electronically signed by: FLORES CAT CNP on Sep 28 2022 3:22PM EST [id number] Normal [facility] NURSING PROGon 09-28-2022 NURSING PROG HNO ID: [id number] Author: Court Magana RN Service: Nursing Author Type: Registered Nurse Type: Nursing Progress Note Filed: 09/28/2022 1:09 PM Note Text: PATIENT EDUCATION TOPIC: PROCEDURE / SURGERY: Pre Procedure Teaching: LP Post Procedure Teaching: LP PATIENT NAME: Shantel Melendez PATIENT LOCATION: [facility] INTERVENTIONAL RADIOL* READINESS [...] Primary Care Provider Electronically Signed By: Court Magnaa [facility] MRI BRAIN WO/W IVCONon 09-22 [facility] COVID + FLU Quick Testingon 08-01-2022 SARS-CoV-2 (COVID-19) RNA JER+probe Ql (Unsp spec) Negative [employer] [facility] [employer] Other COVID + FLU Quick Testing neagative [employer] [facility] [employer] Other COVID + FLU Quick Testing Negative [employer] Other RSVon 08-01-2022 RSV Ag IA Ql (Unsp spec) Positive [employer] Other Cerebrospinal fluid post-valdez trifugation appearance determinationOrdered By: Oziel Cadena on 07-17-2022 Appearance (Spun CSF) Colorless Colorless [facility] Cerebrospinal fluid sample t ube volume measurementOrdered By: Oziel Cadena on 07-17-2022 Specimen volume (CSF) 22.0 mL [facility] Color CSFOrdered By: Oziel Cadena on 07-17-2022 Color (CSF) Colorless Colorless [facility] Manual cerebrospinal fluid e rythrocytes count (number/volume)Ordered By: Oziel Cadena on 07-17-2022 RBC Manual cnt (CSF) [#/Vol] 0 /uL [facility] Comment on above: The reference interv al and other method performance specifications have not been established for this body fluid. The test result must be integrated into the clinical context for interpretation. No Panel InformationOrdered By: Oziel Cadena on 07-17-2022 CSF Appearance Clear Clear [facility] CSF Tube Number Tube number: 1 [facility] Nucleated cells [#/volume] i n Cerebral spinal fluid by Manual countOrdered By: Oziel Cadena on 07-17-2022 Nucleated cells Manual cnt (CSF) [#/Vol] 0.003 10*3/uL 0-5 [facility] Activated partial thrombopla stin time (aPTT) in platelet poor plasma by coagulation aOrdered By: Loi Wong on 04-16-2022 aPTT Coag (PPP) [Time] 32.8 s 25.1-36.5 [facility] Basophils Auto (Bld) [#/Vol] Ordered By: Loi Wong on 04-16-2022 Basophils (Bld) [#/Vol] 0.1 10*3/uL 0.0-0.2 [facility] Basophils/100 WBC Auto (Bld) Ordered By: Loi Wong on 04-16-2022 Basophils/100 WBC (Bld) 1.2 % . [facility] Creatine kinase [Enzymatic a ctivity/volume] in Serum or PlasmaOrdered By: Loi Wong on 04-16-2022 CK [Catalytic activity/Vol] 69 U/L 22-269 [facility] Creatinine and Glomerular fi ltration rate.predicted panel (S/P/Bld)Ordered By: Loi Wong on 04-16-2022 Creatinine [Mass/Vol] 0.97 mg/dL 0.64-1.27 [facility] Eosinophils Auto (Bld) [#/Vo l]Ordered By: Loi Wong on 04-16-2022 Eosinophils (Bld) [#/Vol] 0.1 10*3/uL 0.0-0.45 [facility] Eosinophils/100 WBC Auto (Bl d)Ordered By: Loi Wong on 04-16-2022 Eosinophils/100 WBC (Bld) 1.2 % . [facility] Erythrocyte distribution wid th Auto (RBC) [Ratio]Ordered By: Loi Wong on 04-16-2022 Erythrocyte distribution width (RBC) [Ratio] 14.1 % 12.0-14.8 [facility] Estimated glomerular filtrat ion rate (GFR) non- AmericanOrdered By: Loi Wong on 04-16-2022 GFR/1.73 sq M.predicted among non-blacks MDRD (S/P/Bld) [Vol rate/Area] > 60 mL/Min [facility] Hematocrit Auto (Bld) [Volum e fraction]Ordered By: Loi Wong on 04-16-2022 Hematocrit (Bld) [Volume fraction] 43.2 % 38.8-50.0 [facility] Hemoglobin [Mass/volume] in BloodOrdered By: Loi Wong on 04-16-2022 Hemoglobin (Bld) [Mass/Vol] 14.7 g/dL 13.0-17.0 [facility] Laboratory - Chemistry and C hemistry - challengeOrdered By: Loi Wong on 04-16-2022 Natriuretic peptide B (Bld) [Mass/Vol] 29.0 pg/mL 5-100 [facility] Laboratory - CoagulationOrde red By: Loi Wong on 04-16-2022 PT Coag (PPP) [Time] 12.0 s 9.0-12.9 [facility] Laboratory - Hematology and Cell countsOrdered By: Loi Wong on 04-16-2022 Nucleated RBC/100 WBC (Bld) [Ratio] 0.1 % 0-0.5 [facility] Leukocytes [#/volume] in Blo od by Automated countOrdered By: Loi Wong on 04-16-2022 WBC (Bld) [#/Vol] 7.7 10*3/uL 4.5-11.0 [facility] Lymphocytes Auto (Bld) [#/Vo l]Ordered By: Loi Wong on 04-16-2022 Lymphocytes (Bld) [#/Vol] 2.3 10*3/uL 1.00-4.8 [facility] Lymphocytes/100 WBC Auto (Bl d)Ordered By: Loi Wong on 04-16-2022 Lymphocytes/100 WBC (Bld) 29.4 % . [facility] MCH Auto (RBC) [Entitic mass ]Ordered By: Loi Wong on 04-16-2022 MCH (RBC) [Entitic mass] 32.0 pg 27.5-35.2 [facility] MCHC Auto (RBC) [Mass/Vol]Or dered By: Loi Wong on 04-16-2022 MCHC (RBC) [Mass/Vol] 34.0 g/dL 32.5-35.6 [facility] MCV Auto (RBC) [Entitic vol] Ordered By: Loi Wong on 04-16-2022 MCV (RBC) [Entitic vol] 94.0 fL 83.5-101 [facility] Monocytes Auto (Bld) [#/Vol] Ordered By: Loi Wong on 04-16-2022 Monocytes (Bld) [#/Vol] 0.6 10*3/uL 0.0-0.8 [facility] Monocytes/100 WBC Auto (Bld) Ordered By: Loi Wong on 04-16-2022 Monocytes/100 WBC (Bld) 7.7 % . [facility] Neutrophils Auto (Bld) [#/Vo l]Ordered By: Loi Wong on 04-16-2022 Neutrophils (Bld) [#/Vol] 4.7 10*3/uL 1.8-7.7 [facility] Neutrophils/100 WBC Auto (Bl d)Ordered By: Loi Wong on 04-16-2022 Neutrophils/100 WBC (Bld) 60.5 % . [facility] No Panel InformationOrdered By: Loi Wong on 04-16-2022 D-Dimer Quantitative (PE/DVT) < 200 ng/mL 0-243 [facility] Comment on above: The reference range [...] conditions. Estimated GFR () > 60 mL/Min [facility] Comment on above: GFR estimated refere nce range: According to KDOQI guidelines, <60 ml/min/1.73m2 is sufficient to diagnose a patient with chronic kidney disease. Pharmacy Creatinine Clearance (Chem 79.33 [facility] Platelet mean volume Auto (B ld) [Entitic vol]Ordered By: Loi Wong on 04-16-2022 Platelet mean volume (Bld) [Entitic vol] 9.7 fL 6.6-10.1 [facility] Platelet poor plasma interna tional normalized ratio (INR) by coagulation assay (relatOrdered By: Loi Wong on 04-16-2022 INR Coag (PPP) [Relative time] 1.1 {INR} [facility] Comment on above: INR Therapeutic Rang [...] 04-16-2022 Platelets (Bld) [#/Vol] 238 10*3/uL 150-450 [facility] RBC Auto (Bld) [#/Vol]Ordere d By: Loi Wong on 04-16-2022 RBC (Bld) [#/Vol] 4.59 10*6/uL 3.90-5.60 [facility] Serum or plasma anion gap de terminationOrdered By: Loi Wong on 04-16-2022 Anion gap [Moles/Vol] 12.4 mmol/L 6.0-15.0 [facility] Serum or plasma calcium paramjit urement (mass/volume)Ordered By: Loi Wong on 04-16-2022 Calcium [Mass/Vol] 9.0 mg/dL 8.2-10.2 [facility] Serum or plasma chloride robby surement (moles/volume)Ordered By: Loi Wong on 04-16-2022 Chloride [Moles/Vol] 103 mmol/L 95-114 [facility] Serum or plasma creatine kin ase MB (CKMB)/total creatine kinase (CK) ratio by calculaOrdered By: Loi Wong on 10-30-2022 CK.MB Calc [Catalytic fraction] 2.0 % 0.00-2.50 [facility] Serum or plasma creatine kin ase MB measurement (mass/volume)Ordered By: Loi Wong on 04-16-2022 CK.MB [Mass/Vol] 1.4 ng/mL 0.6-6.3 [facility] Serum or plasma glucose paramjit urement (mass/volume)Ordered By: Loi Wong on 04-16-2022 Glucose [Mass/Vol] 88 mg/dL 70-100 [facility] Comment on above: ADA recommended refe rence rangeRandom Glucose Reference Range is dependent on time and content of last meal. Glucose of more than 200 mg/dL in a nonstressed, ambulatory subject supports the diagnosis of Diabetes Mellitus. Serum or plasma potassium me asurement (moles/volume)Ordered By: Loi Wong on 04-16-2022 Potassium [Moles/Vol] 4.3 mmol/L 3.5-5.1 [facility] Serum or plasma sodium measu rement (moles/volume)Ordered By: Loi Wong on 04-16-2022 Sodium [Moles/Vol] 135 mmol/L 136-146 [facility] Serum or plasma total carbon dioxide measurement (moles/volume)Ordered By: Loi Wong on 04-16-2022 CO2 [Moles/Vol] 23.9 mmol/L 22.0-30.0 [facility] Serum or plasma urea nitroge n measurement (mass/volume)Ordered By: Loi Wong on 04-16-2022 Urea nitrogen [Mass/Vol] 12 mg/dL 9-23 [facility] Troponin I.cardiac [Mass/vol ume] in Serum or Plasma by High sensitivity methodOrdered By: Loi Wong on 04-16-2022 Troponin I.cardiac High sensitivity method [Mass/Vol] 5 pg/mL 0-20 [facility] COVID Quick Testingon 2021 Result Negative [employer] Other Quick Fluon 03-16-2022 FLUAV Ab CF (S) [Titer] Negative [employer] Other FLUBV Ab CF (S) [Titer] Negative [employer] Other MRI Brain w/o + w/on 022 [...] Moderate patchy increased T2 signal within the jose appears substantially similar to the prior study, [...] T2 WHITE MATTER SIGNAL CHANGES OF THE JOSE, 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 MINIMAL SUPRATENTORIAL WHITE MATTER CHANGES MOST CONSISTENT WITH CHRONIC SMALL VESSEL ISCHEMIC DISEASE. Report reported and signed by Jillian Morales on 01/18/2022 1413 Normal [facility] Cell Count + Differential, C on 11-07-2021 WBC (Bld) [#/Vol] 0.006 10*3/uL above high threshold 0 - 5 [facility] [employer] Work Phone: [phone] Cell Count + Differential, CSF 70 1 [facility] [employer] Work Phone: [phone] Cell Count + Differential, CSF 10 % [facility] [employer] Work Phone: Cell Count + Differential, CSF [...] Phone: [phone] Albumin [Mass/Vol] 4578 mg/dL [phone] [facility] Work Phone: [phone] IgG (CSF) [Mass/Vol] 2.2 mg/dL 0.0-6.0 [facility] Work Phone: [phone] IgG [Mass/Vol] 496 mg/dL below low threshold [phone] [facility] Work Phone: [phone] Comment on above: REFERENCE INTERVAL: Immunoglobulin GAccess complete set of age- and/or gender-specific reference intervals for this test in the [facility] Test Directory (Second & Fourth). IgG clearance/Albumin clearance (S+CSF) [Ratio] 0.56 {ratio} [...] sclerosis will have a negative result.Performed By: [employer] [place] [id number] Director: Paula Middleton MD Albumin (CSF) [Mass/Vol] Canceled [facility] [employer] Work Phone: [phone] Albumin [Mass/Vol] Canceled [facility] [employer] Work Phone: [phone] Glucose (CSF) [Mass/Vol] 56 mg/dL 40 - 70 [facility] [employer] Work Phone: [phone] IgG (CSF) [Mass/Vol] Canceled [facility] [employer] Work Phone: [phone] IgG [Mass/Vol] Canceled [facility] [employer] Work Phone: [phone] IgG clearance/Albumin clearance (S+CSF) [Ratio] Canceled [facility] Work Phone: [phone] IgG synthesis rate Calc (S+CSF) [Mass/Time] Canceled [facility] Work Phone: [phone] IgG/Albumin (CSF) [Mass ratio] Canceled [facility] Work Phone: [phone] Oligoclonal bands Elph (CSF) [Interp] Canceled [facility] Work Phone: [phone] Oligoclonal bands Elph Curtis (CSF) [Interp] Canceled [facility] Work Phone: [phone] Protein (CSF) [Mass/Vol] 66 mg/dL above high threshold 15 - 45 [facility] Work Phone: [phone] No Panel Informationon 11-07 0 {Bands} 0-1 [facility] Work Phone: [phone] [facility] Work Phone: [phone] Canceled [facility] Work Phone: [phone] [...] a) No falls within the last year [facility] Work Phone: Tobacco use status [facility] a) Yes [facility] Work Phone: Blood Pressure Cuff Size Adult QU[facility] Work Phone: Initial Visit (Neurosurgery) on 11-03-2021 Initial Visit (Neurosurgery) Diagnoses/Problems Weight loss (783.21) (R63.4) Anxiety (300.00) (F41.9) Depression (311) (F32.A) History of high cholesterol (V12.29) (Z86.39) 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 In [...] Dr. Rodrigez for diagnosis. I have asked Kalpana Beryl to see the patient and she [...] worse. MRI showed abnormal signal in the jose and he sent to me in consultation. He has mild headaches but denies weakness numbness or seizure. He saw Dr. Ba a neurologist in [facility] [place]. He describes his vision as seeing 1-1/2 [...] Tablet Vitals Vital Signs Recorded: 03Nov2021 09:38AM Wjyhjruwcba17.2 F Heart Rate63 Iqvsvzxzftq77 Xniihkby428 Lxppzyedg81 Blood Pressure Cuff SizeAdult Height5 ft 7.13 in Mtktkf411 lb 6 oz BMI Npuxtggenz27.05 kg/m2 BSA Calculated1.91 Tobacco Usea) Yes Fall Screeninga) No falls within the last year O2 Pqdvqrijva16 Pain Scale7 Physical Exam Constitutional - General appearance: No acute distress, well de (more content not included)... 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 In [...] Dr. Rodrigez for diagnosis. I have asked Kalpana Cordoba to see the patient and she [...] worse. MRI showed abnormal signal in the jose and he sent to me in consultation. He has mild headaches but denies weakness numbness or seizure. He saw Dr. Ba a neurologist in [facility] [place]. He describes his vision as seeing 1-1/2 [...] MG Oral Tablet Vitals Vital Signs Recorded: [id number] 09:38AM Rehgnjimjrc03.2 F Heart Rate63 Yyacrtgddsi07 Vntuogtq366 Fqnmagtgm02 Blood Pressure Cuff SizeAdult Height5 ft 7.13 in Aeusia783 lb 6 oz BMI Dhjjqtzkje00.05 kg/m2 BSA Calculated1.91 Tobacco Usea) Yes Fall Screeninga) No falls within the last year O2 Hfdmeszptr34 Pain Scale7 Ph (more content not included)... [facility] CBC W Auto Differential pane l (Bld)on 10-06-2021 Basophils (Bld) [#/Vol] 0.06 10*3/uL [facility] Basophils/100 WBC (Bld) 0.8 % [facility] Differential cell count method Nom (Bld) Auto [facility] Eosinophils (Bld) [#/Vol] 0.11 10*3/uL [facility] Eosinophils/100 WBC (Bld) 1.5 % [facility] Erythrocyte distribution width (RBC) [Ratio] 12.8 % 11.5 - 15.0 % [facility] Hematocrit (Bld) [Volume fraction] 43.7 % 39.0 - 51.0 % [facility] Hemoglobin (Bld) [Mass/Vol] 14.6 g/dL 13.0 - 17.0 g/dL [facility] Immature granulocytes (Bld) [#/Vol] NINF [facility] Immature granulocytes/100 WBC (Bld) 0.3 % [facility] Lymphocytes (Bld) [#/Vol] 1.75 10*3/uL [facility] Lymphocytes/100 WBC (Bld) 23.7 % [facility] MCH (RBC) [Entitic mass] 32.7 pg 26.0 - 34.0 pg [facility] MCHC (RBC) [Mass/Vol] 33.4 g/dL 30.5 - 36.0 g/dL [facility] MCV (RBC) [Entitic vol] 98.0 fL 80.0 - 100.0 fL [facility] Monocytes (Bld) [#/Vol] 0.52 10*3/uL [facility] Monocytes/100 WBC (Bld) 7.0 % [facility] Neutrophils (Bld) [#/Vol] 4.92 10*3/uL [facility] Neutrophils/100 WBC (Bld) 66.7 % [facility] Nucleated RBC (Bld) [#/Vol] [facility] Nucleated RBC/100 WBC (Bld) [Ratio] 0.0 % /100 WBC [facility] Platelet mean volume (Bld) [Entitic vol] 10.8 fL 9.0 - 12.7 fL [facility] Platelets (Bld) [#/Vol] 246 10*3/uL [facility] RBC (Bld) [#/Vol] 4.46 10*6/uL 4.20 - 6.00 m/uL [facility] WBC (Bld) [#/Vol] 7.38 10*3/uL [facility] This is an appended report. These results have been appended to a previously verified report. [facility] CT Chest W contrast Tristin IMPRESSION: [...] any questions regarding this interpretation, please call [phone]. If you are unable to reach us at the number above, please feel free to contact [facility] at [phone]. ZZZ_DO_NOT_US E_DIVISION OF RADIOLOGY * * *Final Report* * * DATE OF EXAM: Oct 06 2021 8:22AM [facility] 0539 - CT CHEST W IVCON [...] images through the upper abdomen appear stable. Rn Birthing (topogram) images: No additional findings. ZZZ_DO_NOT_US E_DIVISION OF RADIOLOGY Provider, Dacia Guillory - 10/06/2021 * * *Final Report* * * DATE OF EXAM: Oct 06 2021 8:22AM [facility] 0539 - CT CHEST W IVCON [...] images through the upper abdomen appear stable. Rn Birthing (topogram) images: No additional findings. IMPRESSION IMPRESSION: [...] any questions regarding this interpretation, please call [phone]. If you are unable to reach us at the number above, please feel free to contact [facility] at [phone]. [facility] CT Neck W contrast Tristin 09-17 IMPRESSION: MODERATE DEGENERATIVE CHANGES INVOLVING THE CERVICAL [...] any questions regarding this interpretation, please call [phone]. If you are unable to reach us at the number above, please feel free to contact [facility] at [phone]. ZZZ_DO_NOT_US E_DIVISION OF RADIOLOGY * * *Final Report* * * DATE OF EXAM: Oct 06 2021 8:22AM [facility] 0013 - CT NECK SOFT TISSUE [...] carotid siphons. ZZZ_DO_NOT_US E_DIVISION OF RADIOLOGY Provider, [facility] - 10/06/2021 * * *Final Report* * * DATE OF EXAM: Oct 06 2021 8:22AM [facility] 0013 - CT NECK SOFT TISSUE [...] any questions regarding this interpretation, please call [phone]. If you are unable to reach us at the number above, please feel free to contact [facility] at [phone]. [facility] CT Neck W contrast IVOrdered By: Ccf Provider on 10-06-2021 [facility] Comprehensive metabolic 2000 panelOrdered By: Micheal Vizcaino on 10-06-2021 Albumin [Mass/Vol] 4.5 g/dL 3.9 - 4.9 g/dL [facility] ALP [Catalytic activity/Vol] 82 U/L 38 - 113 U/L [facility] ALT [Catalytic activity/Vol] 25 U/L 10 - 54 U/L [facility] Anion gap [Moles/Vol] 10 mmol/L 9 - 18 mmol/L [facility] AST [Catalytic activity/Vol] 21 U/L 14 - 40 U/L [facility] Bilirubin [Mass/Vol] 0.6 mg/dL 0.2 - 1 .3 mg/dL [facility] Calcium [Mass/Vol] 9.5 mg/dL 8.5 - 10. 2 mg/dL [facility] Chloride [Moles/Vol] 106 mmol/L High 97 - 10 5 mmol/L [facility] CO2 [Moles/Vol] 29 mmol/L 22 - 30 mmol/L [facility] Creatinine [Mass/Vol] 1.01 mg/dL 0.73 - 1.22 mg/dL [facility] GFR/1.73 sq M.predicted among non-blacks MDRD (S/P/Bld) [Vol rate/Area] 86 mL/min/{1.73_m2} - PINF [facility] Comment on above: Estimated Glomerular Filtration [...] 107 mg/dL High 74 - 99 mg/dL [facility] Comment on above: The [place] Diab[employer] s Association (ADA) provides guidance for [...] Standards of Medical Care in Diabetes 2016, [place] Diabetes Association. Diabetes Care. 2016.39(Suppl 1). Interpretation and review of laboratory results Abnormal [facility] Potassium [Moles/Vol] 4.2 mmol/L 3.7 - 5.1 mmol/L [facility] Protein [Mass/Vol] 6.5 g/dL 6.3 - 8.0 g/dL [facility] Sodium [Moles/Vol] 145 mmol/L High 136 - 144 mmol/L [facility] Urea nitrogen [Mass/Vol] 10 mg/dL 9 - 24 mg/dL [facility] No Panel Informationon 10-06 Radiology Study observation (narrative) [facility] COVID + FLU Quick Testingon 06-30-2021 SARS-CoV-2 (COVID-19) RNA JER+probe Ql (Unsp spec) Negative [employer] [facility] [employer] Other COVID + FLU Quick Testing Negative [employer] Other COVID Quick Testingon 2020 Result Negative [employer] [facility] [employer] Other Basophils Auto (Bld) [#/Vol] on 09-20-2020 Basophils (Bld) [#/Vol] 0.0 10*3/uL 0.0-0.2 [facility] Basophils/100 WBC Auto (Bld) on 09-20-2020 Basophils/100 WBC (Bld) 0.6 % [facility] Blood hemoglobin measurement (mass/volume)on 09-20-2020 Hemoglobin (Bld) [Mass/Vol] 14.4 g/dL 13.0-17.0 [facility] Blood leukocytes automated c ount (number/volume)on 09-20-2020 WBC (Bld) [#/Vol] 7.4 10*3/uL 4.5-11.0 [facility] Eosinophils Auto (Bld) [#/Vo l]on 09-20-2020 Eosinophils (Bld) [#/Vol] 0.1 10*3/uL 0.0-0.45 [facility] Eosinophils/100 WBC Auto (Bl d)on 09-20-2020 Eosinophils/100 WBC (Bld) 0.9 % [facility] Erythrocyte distribution wid th Auto (RBC) [Ratio]on 09-20-2020 Erythrocyte distribution width (RBC) [Ratio] 14.6 % 12.0-14.8 [facility] Hematocrit Auto (Bld) [Volum e fraction]on 09-20-2020 Hematocrit (Bld) [Volume fraction] 41.7 % 38.8-50.0 [facility] Lymphocytes Auto (Bld) [#/Vo l]on 09-20-2020 Lymphocytes (Bld) [#/Vol] 1.6 10*3/uL 1.00-4.8 [facility] Lymphocytes/100 WBC Auto (Bl d)on 09-20-2020 Lymphocytes/100 WBC (Bld) 21.3 % [facility] MCH Auto (RBC) [Entitic mass ]on 09-20-2020 MCH (RBC) [Entitic mass] 32.4 pg 27.5-35.2 [facility] MCHC Auto (RBC) [Mass/Vol]on 09-20-2020 MCHC (RBC) [Mass/Vol] 34.5 g/dL 32.5-35.6 [facility] MCV Auto (RBC) [Entitic vol] on 09-20-2020 MCV (RBC) [Entitic vol] 93.9 fL 83.5-101 [facility] Monocytes Auto (Bld) [#/Vol] on 09-20-2020 Monocytes (Bld) [#/Vol] 0.6 10*3/uL 0.0-0.8 [facility] Monocytes/100 WBC Auto (Bld) on 09-20-2020 Monocytes/100 WBC (Bld) 8.6 % [facility] Neutrophils Auto (Bld) [#/Vo l]on 09-20-2020 Neutrophils (Bld) [#/Vol] 5.1 10*3/uL 1.8-7.7 [facility] Neutrophils/100 WBC Auto (Bl d)on 09-20-2020 Neutrophils/100 WBC (Bld) 68.6 % [facility] Otheron 09-20-2020 Nucleated RBC/100 WBC (Bld) [Ratio] 0.0 % 0-0.5 [facility] Platelet mean volume Auto (B ld) [Entitic vol]on 09-20-2020 Platelet mean volume (Bld) [Entitic vol] 9.3 fL 6.6-10.1 [facility] Platelets Auto (Bld) [#/Vol] on 09-20-2020 Platelets (Bld) [#/Vol] 182 10*3/uL 150-450 [facility] RBC Auto (Bld) [#/Vol]on RBC (Bld) [#/Vol] 4.44 10*6/uL 3.90-5.60 [facility] Body fluid albumin measureme nt (mass/volume)on 09-13-2020 Albumin (Body fld) [Mass/Vol] 4.3 g/dL 3.2-5.5 [facility] Cholesterol [Mass/volume] in Serum or Plasmaon 09-13-2020 Cholesterol [Mass/Vol] 219 mg/dL 140-200 [facility] Comment on above: Chol less than 200 m g/dl low riskChol 201-239 mg/dl borderline riskChol 240 mg/dl and greater high risk Cholesterol in LDL Calc [Mas s/Vol]on 09-13-2020 Cholesterol in LDL [Mass/Vol] 149 mg/dL 0-100 [facility] Comment on above: LDL ATP III CLASSIFI CATIONLDL less than 100 mg/dL OptimalLDL 100-129 mg/dL Near or above optimalLDL 130-159 mg/dL Borderline highLDL 160-189 mg/dL HighLDL greater than 189 mg/dL Very high Cholesterol in VLDL Calc [Ma ss/Vol]on 09-13-2020 Cholesterol in VLDL [Mass/Vol] 28 mg/dL [facility] Creatinine and Glomerular fi ltration rate.predicted panel (S/P/Bld)on 09-13-2020 Creatinine [Mass/Vol] 0.89 mg/dL 0.64-1.27 [facility] GFR/1.73 sq M.predicted roverto g non-blacks MDRD (S/P/Bld) [Vol rate/Area]on 09-13-2020 GFR/1.73 sq M predicted among non-blacks MDRD (S/P/Bld) [Vol rate/Area] > 60 mL/Min [facility] Globulin Calc (S) [Mass/Vol] on 09-13-2020 Globulin (S) [Mass/Vol] 2.0 g/dL [facility] No Panel Informationon 09-13 Estimated GFR () > 60 mL/Min [facility] Comment on above: GFR estimated refere nce range: According to KDOQI guidelines, <60 ml/min/1.73m2 is sufficient to diagnose a patient with chronic kidney disease. Otheron 09-13-2020 GFR/1.73 sq M.predicted MDRD (S/P/Bld) [Vol rate/Area] > 60 mL/Min [facility] Comment on above: GFR estimated refere nce range: According to KDOQI guidelines, <60 ml/min/1.73m2 is sufficient to diagnose a patient with chronic kidney disease. Pharmacy Creatinine Clearance (Chem N/A [facility] Prostate Specific Antigen Screen 0.480 ng/mL 0.000-4.00 0 [facility] Protein [Mass/volume] in Ser um or Plasmaon 09-13-2020 Protein [Mass/Vol] 6.3 g/dL 6.1-7.9 [facility] SARS-CoV-2 (COVID-19) IgG Ab [Presence] in Serum or Plasma by Immunoassayon 09-13-2020 SARS-CoV-2 (COVID-19) IgG Ab [Presence] in Serum or Plasma by Immunoassay Positive Negative [facility] Comment on above: Results suggest rece nt or prior infection with SARS-CoV-2.Correlation with epidemiologic risk factors and otherclinical and laboratory findings is recommended. Serologicresults should not be used as the sole basis to diagnose orexclude recent SARS-CoV-2 infection. False positive resultsinfrequently occur due to prior infection with other humanCoronaviruses.This assay was performed using the [employer]ison(R)SARS-CoV-2 S1/S2 IgG assay.This assay detects antibodies against SARS-CoV-2 spikeprotein including the receptor binding domain (RBD).Performed at: [facility] [id number] Director: Florencio Wu PhD, Phone: [phone] SARS-CoV-2 (COVID-19) IgG IA Ql Positive Negative [facility] Comment on above: Results suggest rece nt or prior infection with SARS-CoV-2.Correlation with epidemiologic risk factors and otherclinical and laboratory findings is recommended. Serologicresults should not be used as the sole basis to diagnose orexclude recent SARS-CoV-2 infection. False positive resultsinfrequently occur due to prior infection with other humanCoronaviruses.This assay was performed using the [employer]ison(R)SARS-CoV-2 S1/S2 IgG assay.This assay detects antibodies against SARS-CoV-2 spikeprotein including the receptor binding domain (RBD).Performed at: [facility] [id number] Director: Florencio Wu PhD, Phone: [phone] Serum or plasma alanine mclaughlin otransferase measurement without P-5'-P (enzymatic activion 09-13-2020 ALT No additional P-5'-P [Catalytic activity/Vol] 19 U/L 1060 [facility] Serum or plasma albumin/glob ulin mass ratioon 09-13-2020 Albumin/Globulin [Mass ratio] 2.2 {ratio} [facility] Serum or plasma alkaline fuentes sphatase measurement (enzymatic activity/volume)on 09-13-2020 ALP [Catalytic activity/Vol] 53 U/L 32-92 [facility] Serum or plasma aspartate am inotransferase measurement (enzymatic activity/volume)on 09-13-2020 AST [Catalytic activity/Vol] 22 U/L 10-42 [facility] Serum or plasma calcium paramjit urement (mass/volume)on 09-13-2020 Calcium [Mass/Vol] 9.1 mg/dL 8.2-10.2 [facility] Serum or plasma chloride robby surement (moles/volume)on 09-13-2020 Chloride [Moles/Vol] 105 mmol/L 95-114 [facility] Serum or plasma glucose paramjit urement (mass/volume)on 09-13-2020 Glucose [Mass/Vol] 97 mg/dL 70-100 [facility] Comment on above: ADA recommended refe rence rangeRandom Glucose Reference Range is dependent on time and content of last meal. Glucose of more than 200 mg/dL in a nonstressed, ambulatory subject supports the diagnosis of Diabetes Mellitus. Serum or plasma high density lipoprotein (HDL) cholesterol measurementon 09-13-2020 Cholesterol in HDL [Mass/Vol] 41 mg/dL [facility] Comment on above: HDL CHOL ATP-III CLA SSIFICATION Cardiovascular RiskHDL > or equal to 60 mg/dL LOWHDL < 40 mg/dL HIGH Serum or plasma potassium me asurement (moles/volume)on 09-13-2020 Potassium [Moles/Vol] 4.2 mmol/L 3.5-5.1 [facility] Serum or plasma sodium measu rement (moles/volume)on 09-13-2020 Sodium [Moles/Vol] 135 mmol/L 136-146 [facility] Serum or plasma thyroid stim ulating hormone (TSH) measurement by high sensitivity meton 09-13-2020 TSH Qn 1.66 u[iU]/mL 0.45-5.33 [facility] Serum or plasma total biliru bin measurement (mass/volume)on 09-13-2020 Bilirubin [Mass/Vol] 0.9 mg/dL 0.3-1.2 [facility] Serum or plasma total carbon dioxide measurement (moles/volume)on 09-13-2020 CO2 [Moles/Vol] 22.5 mmol/L 22.0-30.0 [facility] Serum or plasma total choles terol/high density lipoprotein (HDL) cholesterol mass gia 09-13-2020 Cholesterol.total/Chol esterol in HDL [Mass ratio] 5.3 {ratio} [facility] Serum or plasma urea nitroge n measurement (mass/volume)on 09-13-2020 Urea nitrogen [Mass/Vol] 12 mg/dL 9-23 [facility] TSH DL <= 0.005 mIU/L Qnon 0 09-13-2020 TSH Qn 1.66 m[IU]/L 0.45-5.33 [facility] Triglyceride [Mass/volume] i n Serum or Plasmaon 09-13-2020 Triglyceride [Mass/Vol] 144 mg/dL 35-149 [facility] Comment on above: TRIG ATP III CLASSIF [...] lens implantation, left eye. Coleen Grajeda M.D. annette Dictated: 04/14/2019 #[id number] Typed 04/14/2019 #[id number] cc: Coleen Grajeda M.D. [facility] Comment on above: Result Comment: Elec [...] and inferior fornices of the eye. A Openplayan manometer was set on the eye at [...] condition. Coleen Grajeda M.D. gls Dictated: 04/14/2019 #[id number] Typed: 04/15/2019 #[id number] cc: Coleen Grajeda M.D. [facility] Comment on above: Result Comment: Elec tronically Signed By: Coleen Grajeda MD\.br\Date and Time Signed: 04/18/19 09:54 EDT Coding Summary.on 04-15-2019 Coding Summary. 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 Name: SHANTEL MELENDEZ /Sex: 1960 Male Med Rec #: [id number] Physician: Coleen Grajeda MD Financial #: [id number] Pt. Type: A Room/Bed: [place] [address] Admit/Disch: 04/14/19 12:59:00 - 04/14/19 16:00:00 Institution: [...] 3 Case Attendee Coleen Grajeda MD, CST, Johnathon Krishna RN Role Performed Surgeon - Primary Scrub - Primary Lapidary Apprentice - Primary Time In 04/14/19 14:55:00 04/14/19 14:55:00 04/14/19 15:00:00 Time Out 04/14/19 15:17:00 04/14/19 15:17:00 04/14/19 15:17:00 Procedure CATARACT EXTRACTION W/ CATARACT EXTRACTION W/ CATARACT EXTRACTION W/ INTRAOCULAR LENS(Left) INTRAOCULAR LENS(Left) INTRAOCULAR LENS(Left) Comments Last Modified By: Sachi VERNON, Johnathon Kraimi RN, Johnathon Hurtado RN 04/14/19 15:16:27 04/14/19 15:16:27 04/14/19 15:16:27 Entry 4 Entry 5 Case Attendee Omar VERNON, Pauly GOODEN, RN, Tierra Role Performed Lapidary Apprentice - Primary Lapidary Apprentice - Relief Time In 04/14/19 14:55:00 04/14/19 14:55:00 Time Out 04/14/19 15:17:00 04/14/19 15:00:00 Procedure CATARACT EXTRACTION W/ CATARACT EXTRACTION W/ INTRAOCULAR LENS(Left) INTRAOCULAR LENS(Left) Comments Last Modified By: Johnathon Karimi RN, RN, Kail M 04/14/19 15:16:27 04/14/19 15:16:27 Perioperative Protocols FT [...] Unable to Visualize, Outcomes Met? Yes Warm, Dennison, Dry Last Modified By: Johnathon Karimi RN [...] transport Entry 1 Via Cart By Patrick MYERS RN, Kelly Safety Precautions Side Rails Up Outcomes Met? [...] Instruments Instruments Status Correct Correct Time By Long APPLICATIONS PACKAGER, Asya Alves CST, Asya Outcomes Met? Yes Yes Last Modified By: [...] RN Patient Status Stable Skin. Condition Warm, Dennison, Dry Description unchanged Airway Maintenance Oxygen in [...] safely administered during the perioperative period For [facility] please see scanned medication reconcilliation form for medications used at the field during the procedure. Implant Log FT Pre-Care Text: Records devices implanted during the operative or invasive procedure Entry 1 Procedure CATARACT EXTRACTION W/ Implant/Explant Implant INTRAOCULAR LENS(Left) Implant Identification FT Description MONYT IOL [id number] [employer] Serial Number [id number] SIZE 21.0 [[id number] 21.0][F] Lot Number [id number] [employer] FT-[employer] Catalog ?# [id number] 21.0[F] Expiration Date 10/16/23 Unique Device [id number] Identifier (BERNARD) Usage Data FT Implant Site [...] 15:16 Asya Alves CST 04/15/19 14:44 Normal [facility] Inpatient Patient Summaryon 04-14-2019 Inpatient Patient Summary [facility] Clinical Discharge Instructions PERSON INFORMATION Name: SHANTEL MELENDEZ PHYSICIANS Admitting Physician: Coleen Grajeda MD Attending Physician: Coleen Grajeda MD PCP: JILLIAN BARONE DO Discharge Diagnosis: Cataract Comment: PATIENT EDUCATION INFORMATION Instructions: Medication Leaflets: Follow up: With: Address: When: Coleen Mcgee [address], [place] [phone] Business (1) Comments: Call physician if symptoms worsen Keep scheduled appointment MEDICATION LIST Comment: Normal [facility] Main OR PACU II Recordon Main OR PACU II Record PACU Phase II Doc ument Type FT Summary Primary Physician: Coleen Grajeda MD Finalized Date/Time: 04/14/19 17:54:42 Pt. Name: SHANTEL MELENDEZ/Sex: 1960 Male Med Rec #: [id number] Physician: Coleen Grajeda MD Financial #: [id number] Pt. Type: A Room/Bed: [place] [address] Admit/Disch: 04/14/19 12:59:23 - Institution: Case Times [...] By: Lizeth Rush RN 04/14/19 17:54 Normal [facility] Main OR Preoperative Recordo n 04-14-2019 Main OR Preoperative Record PreOp Document Type FT Summary Primary Physician: Coleen Grajeda MD Finalized Date/Time: 04/14/19 15:14:03 Pt. Name: MELENDEZSHANTEL/Sex: 1960 Male Med Rec #: [id number] Physician: Coleen Grajeda MD Financial #: [id number] Pt. Type: A Room/Bed: [place] [address] Admit/Disch: 04/14/19 12:59:23 - Institution: Case Times PreOp FT Pre-Care Text: Verifies consent for planned procedure, identifies individual values and wishes concerning care, includes family members in perioperative teaching Entry 1 Patient Times. In Pre Surgery 04/14/19 13:05:00 Out Pre Surgery 04/14/19 14:53:00 Outcomes Met? Yes Last Modified By: Johanthon Karimi RN 04/14/19 15:14:00 Post-Care Text: The patient participates in decisions affecting his or her perioperative plan of care Finalized By: Johnathon Karimi RN Document Signatures Signed By: Johnathon Karimi RN 04/14/19 15:14 Normal [facility] Patient Education - Texton 1 Patient Education - Text Normal [facility] Vital Signs Date Time Vital Sign Value Performing Clinician Facility 01-12-2025 15:20-0400 Body height 172.72 cm Griselda Kuns DO Work Phone: [facility] 01-12-2025 15:20-0400 Body mass index (BMI) [Ratio] 27 kg/m2 Griselda Kuns DO Work Phone: [facility] 01-12-2025 15:20-0400 Body weight 80.73 kg Griselda Kuns DO Work Phone: [facility] 01-12-2025 15:20-0400 Diastolic blood pressure 74 mm[Hg] Grisedla Kuns DO Work Phone: [facility] 01-12-2025 15:20-0400 Heart rate 76 /min Griselda Kuns DO Work Phone: [facility] 01-12-2025 15:20-0400 Systolic blood pressure 120 mm[Hg] Griselda Kuns DO Work Phone: [facility] 12-24-2024 14:12-0400 Body mass index (BMI) [Ratio] 25.09 kg/m2 Oziel Cadena MD Work Phone: [facility] 12-24-2024 14:12-0400 Body weight 74.84 kg Oziel Cadena MD Work Phone: [facility] 12-24-2024 14:12-0400 Diastolic blood pressure 87 mm[Hg] Oziel Cadena MD Work Phone: [facility] 12-24-2024 14:12-0400 Heart rate 85 /min Oziel Cadena MD Work Phone: [facility] 12-24-2024 14:12-0400 Systolic blood pressure 125 mm[Hg] Oziel Cadena MD Work Phone: [facility] 11-19-2024 14:04-0400 Body height 172.72 cm Griselda Kuns DO Work Phone: [facility] 11-19-2024 14:04-0400 Body temperature 100.7 [degF] Griselda Kuns DO Work Phone: [facility] 11-19-2024 14:04-0400 Heart rate 96 /min Griselda Kuns DO Work Phone: [facility] 11-19-2024 14:04-0400 Respiratory rate 18 /min Griselda Kuns DO Work Phone: [facility] 11-19-2024 14:04-0400 SaO2% (BldA) [Mass fraction] 99 % Griselda Kuns DO Work Phone: [facility] 11-17-2024 14:03-0400 Body height 172.72 cm Griselda Kuns DO Work Phone: [facility] 11-17-2024 14:03-0400 Body mass index (BMI) [Ratio] 26.3 kg/m2 Griselda Kuns DO Work Phone: [facility] 11-17-2024 14:03-0400 Body weight 78.47 kg Griselda Kuns DO Work Phone: [facility] 11-17-2024 14:03-0400 Diastolic blood pressure 80 mm[Hg] Griselda Kuns DO Work Phone: [facility] 11-17-2024 14:03-0400 Heart rate 109 /min Griselda Kuns DO Work Phone: [facility] 11-17-2024 14:03-0400 Systolic blood pressure 120 mm[Hg] Griselda Kuns DO Work Phone: [facility] 11-05-2024 10:30-0400 Diastolic blood pressure 76 mm[Hg] Griselda Kuns DO Work Phone: [facility] 11-05-2024 10:30-0400 Heart rate 71 /min Griselda Kuns DO Work Phone: [facility] 11-05-2024 10:30-0400 Respiratory rate 20 /min Griselda Kuns DO Work Phone: [facility] 11-05-2024 10:30-0400 SaO2% (BldA) [Mass fraction] 98 % Griselda Kuns DO Work Phone: [facility] 11-05-2024 10:30-0400 Systolic blood pressure 110 mm[Hg] Grisleda Kuns DO Work Phone: [facility] 11-05-2024 07:12-0400 Body height 172.72 cm Griselda Kuns DO Work Phone: [facility] 11-05-2024 07:12-0400 Body weight 77.11 kg Griselda Kuns DO Work Phone: [facility] 10-27-2024 09:57-0400 Body height 172.72 cm Griselda Kuns DO Work Phone: [facility] 10-27-2024 09:57-0400 Body mass index (BMI) [Ratio] 26.4 kg/m2 Griselda Kuns DO Work Phone: [facility] 10-27-2024 09:57-0400 Body weight 78.92 kg Griselda Kuns DO Work Phone: [facility] 10-27-2024 09:57-0400 Diastolic blood pressure 64 mm[Hg] Griselda Kuns DO Work Phone: [facility] 10-27-2024 09:57-0400 Heart rate 64 /min Griselda Kuns DO Work Phone: [facility] 10-27-2024 09:57-0400 Respiratory rate 18 /min Griselda Kuns DO Work Phone: [facility] 10-27-2024 09:57-0400 SaO2% (BldA) [Mass fraction] 98 % Griselda Kuns DO Work Phone: [facility] 10-27-2024 09:57-0400 Systolic blood pressure 110 mm[Hg] Griselda Kuns DO Work Phone: [facility] 10-13-2024 09:06-0400 Body height 172.7 cm Doretha Harris MD Work Phone: [facility] 10-13-2024 09:06-0400 Body mass index (BMI) [Ratio] 25.54 kg/m2 Doretha Harris MD Work Phone: [facility] 10-13-2024 09:06-0400 Body weight 76.2 kg Doretha Harris MD Work Phone: [facility] 10-13-2024 09:06-0400 Diastolic blood pressure 60 mm[Hg] Doretha Harris MD Work Phone: [facility] 10-13-2024 09:06-0400 Heart rate 75 /min Doretha Harris MD Work Phone: [facility] 10-13-2024 09:06-0400 Systolic blood pressure 100 mm[Hg] Doretha Harris MD Work Phone: [facility] 10-10-2024 13:05-0400 Body height 172.72 cm Griselda Kuns DO Work Phone: [facility] 10-10-2024 13:05-0400 Body mass index (BMI) [Ratio] 25.4 kg/m2 Griselda Kuns DO Work Phone: [facility] 10-10-2024 13:05-0400 Body weight 75.74 kg Griselda Kuns DO Work Phone: [facility] 10-10-2024 13:05-0400 Diastolic blood pressure 58 mm[Hg] Griselda Kuns DO Work Phone: [facility] 10-10-2024 13:05-0400 Heart rate 76 /min Griselda Kuns DO Work Phone: [facility] 10-10-2024 13:05-0400 Systolic blood pressure 94 mm[Hg] Griselda Kuns DO Work Phone: [facility] 10-06-2024 18:42-0400 Diastolic blood pressure 80 mm[Hg] Griselda Kuns DO Work Phone: [facility] 10-06-2024 18:42-0400 Heart rate 80 /min Griselda Kuns DO Work Phone: [facility] 10-06-2024 18:42-0400 Respiratory rate 16 /min Griselda Kuns DO Work Phone: [facility] 10-06-2024 18:42-0400 SaO2% (BldA) [Mass fraction] 98 % Griselda Kuns DO Work Phone: [facility] 10-06-2024 18:42-0400 Systolic blood pressure 142 mm[Hg] Griselda Kuns DO Work Phone: [facility] 10-06-2024 14:04-0400 Body height 172.72 cm Griselda Kuns DO Work Phone: [facility] 10-06-2024 14:04-0400 Body temperature 98.2 [degF] Griselda Kuns DO Work Phone: [facility] 10-06-2024 14:04-0400 Body weight 77.9 kg Griselda Kuns DO Work Phone: [facility] 09-20-2024 14:00-0400 Heart rate 88 /min Griselda Kuns DO Work Phone: [facility] 09-20-2024 14:00-0400 Respiratory rate 20 /min Griselda Kuns DO Work Phone: [facility] 09-20-2024 14:00-0400 SaO2% (BldA) [Mass fraction] 93 % Griselda Kuns DO Work Phone: [facility] 09-20-2024 13:48-0400 Body temperature 99.4 [degF] Griselda Kuns DO Work Phone: [facility] 09-20-2024 13:48-0400 Diastolic blood pressure 59 mm[Hg] Griselda Kuns DO Work Phone: [facility] 09-20-2024 13:48-0400 Systolic blood pressure 103 mm[Hg] Griselda Kuns DO Work Phone: [facility] 09-20-2024 10:55-0400 Body height 172.72 cm Griselda Kuns DO Work Phone: [facility] 09-20-2024 10:55-0400 Body weight 77.9 kg Griselda Kuns DO Work Phone: [facility] 09-11-2024 10:46-0400 Body mass index (BMI) [Ratio] 27.06 kg/m2 Oziel Cadena MD Work Phone: [facility] 09-11-2024 10:46-0400 Body weight 80.74 kg Oziel Cadena MD Work Phone: [facility] 09-11-2024 10:46-0400 Diastolic blood pressure 68 mm[Hg] Oziel Cadena MD Work Phone: [facility] 09-11-2024 10:46-0400 Heart rate 61 /min Oziel Cadena MD Work Phone: [facility] 09-11-2024 10:46-0400 Systolic blood pressure 135 mm[Hg] Oziel Cadena MD Work Phone: [facility] 09-11-2024 09:22-0400 Body height 172.72 cm Griselda Kuns DO Work Phone: [facility] 09-11-2024 09:22-0400 Body mass index (BMI) [Ratio] 28.1 kg/m2 Griselda Kuns DO Work Phone: [facility] 09-11-2024 09:22-0400 Body temperature 96.6 [degF] Griselda Kuns DO Work Phone: [facility] 09-11-2024 09:22-0400 Body weight 84 kg Griselda Kuns DO Work Phone: [facility] 09-11-2024 09:22-0400 Diastolic blood pressure 86 mm[Hg] Griselda Kuns DO Work Phone: [facility] 09-11-2024 09:22-0400 Heart rate 78 /min Griselda Kuns DO Work Phone: [facility] 09-11-2024 09:22-0400 Respiratory rate 16 /min Griselda Kuns DO Work Phone: [facility] 09-11-2024 09:22-0400 SaO2% (BldA) [Mass fraction] 98 % Griselda Kuns DO Work Phone: [facility] 09-11-2024 09:22-0400 Systolic blood pressure 122 mm[Hg] Griselda Kuns DO Work Phone: [facility] 07-31-2024 13:26-0500 Body mass index (BMI) [Ratio] 27.37 kg/m2 Oziel Cadena MD Work Phone: [facility] 07-31-2024 13:26-0500 Body weight 81.65 kg Oziel Cadena MD Work Phone: [facility] 07-31-2024 13:26-0500 Diastolic blood pressure 89 mm[Hg] Oziel Cadena MD Work Phone: [facility] 07-31-2024 13:26-0500 Heart rate 81 /min Oziel Cadena MD Work Phone: [facility] 07-31-2024 13:26-0500 Systolic blood pressure 131 mm[Hg] Oziel Cadena MD Work Phone: [facility] 07-03-2024 09:54-0500 Body height 172.72 cm Griselda Kuns DO Work Phone: [facility] 07-03-2024 09:54-0500 Body mass index (BMI) [Ratio] 28.4 kg/m2 Griselda Kuns DO Work Phone: [facility] 07-03-2024 09:54-0500 Body weight 84.82 kg Griselda Kuns DO Work Phone: [facility] 07-03-2024 09:54-0500 Diastolic blood pressure 70 mm[Hg] Griselda Kuns DO Work Phone: [facility] 07-03-2024 09:54-0500 Heart rate 81 /min Griselda Kuns DO Work Phone: [facility] 07-03-2024 09:54-0500 Respiratory rate 18 /min Griselda Kuns DO Work Phone: [facility] 07-03-2024 09:54-0500 SaO2% (BldA) [Mass fraction] 98 % Griselda Kuns DO Work Phone: [facility] 07-03-2024 09:54-0500 Systolic blood pressure 120 mm[Hg] Griselda Kuns DO Work Phone: [facility] 07-02-2024 14:18-0500 Body mass index (BMI) [Ratio] 28.28 kg/m2 Oziel Cadena MD Work Phone: [facility] 07-02-2024 14:18-0500 Body weight 84.37 kg Oziel Cadena MD Work Phone: [facility] 07-02-2024 14:18-0500 Diastolic blood pressure 77 mm[Hg] Oziel Cadena MD Work Phone: [facility] 07-02-2024 14:18-0500 Heart rate 86 /min Oziel Cadena MD Work Phone: [facility] 07-02-2024 14:18-0500 Systolic blood pressure 143 mm[Hg] Oziel Cadena MD Work Phone: [facility] 06-30-2024 08:56-0500 Body height 172.7 cm Doretha Harris MD Work Phone: 5(902)311-492795 [place] [address] 06-30-2024 08:56-0500 Body mass index (BMI) [Ratio] 27.37 kg/m2 Doretha Harris MD Work Phone: 4(685)474-337595 [place] [address] 06-30-2024 08:56-0500 Body weight 81.65 kg Doretha Harris MD Work Phone: 4(164)674-531695 [place] [address] 06-30-2024 08:56-0500 Diastolic blood pressure 70 mm[Hg] Doretha Harris MD Work Phone: 0(170)[phone] [place] [address] 06-30-2024 08:56-0500 Heart rate 75 /min Doretha Harris MD Work Phone: 8(797)596-274595 [place] [address] 06-30-2024 08:56-0500 Systolic blood pressure 124 mm[Hg] Doretha Harris MD Work Phone: 4(528)458-103495 [place] [address] 05-21-2024 14:04-0500 Body height 172.7 cm Oziel Cadena MD Work Phone: [facility] 05-21-2024 14:04-0500 Body mass index (BMI) [Ratio] 26.46 kg/m2 Oziel Cadena MD Work Phone: [facility] 05-21-2024 14:04-0500 Body weight 78.93 kg Oziel Cadena MD Work Phone: [facility] 05-21-2024 14:04-0500 Diastolic blood pressure 82 mm[Hg] Oziel Cadena MD Work Phone: [facility] 05-21-2024 14:04-0500 Systolic blood pressure 120 mm[Hg] Oziel Cadena MD Work Phone: [facility] 04-28-2024 09:48-0500 Body height 172.72 cm [facility] 04-28-2024 09:48-0500 Body mass index (BMI) [Ratio] 27 kg/m2 [facility] 04-28-2024 09:48-0500 Body weight 80.73 kg [facility] 04-28-2024 09:48-0500 Diastolic blood pressure 76 mm[Hg] [facility] 04-28-2024 09:48-0500 Heart rate 61 /min [facility] 04-28-2024 09:48-0500 Respiratory rate 18 /min [facility] 04-28-2024 09:48-0500 SaO2% (BldA) [Mass fraction] 96 % [facility] 04-28-2024 09:48-0500 Systolic blood pressure 130 mm[Hg] [facility] 04-10-2024 12:11-0400 Body temperature 98.1 [degF] Doretha Harris MD Work Phone: [facility] 04-10-2024 12:11-0400 Diastolic blood pressure 58 mm[Hg] Doretha Harris MD Work Phone: [facility] 04-10-2024 12:11-0400 Heart rate 82 /min Doretha Harris MD Work Phone: [facility] 04-10-2024 12:11-0400 Respiratory rate 17 /min Doretha Harris MD Work Phone: [facility] 04-10-2024 12:11-0400 Systolic blood pressure 118 mm[Hg] Doretha Harris MD Work Phone: [facility] 04-10-2024 09:20-0400 SaO2% (BldA) [Mass fraction] 93 % Doretha Harris MD Work Phone: [facility] 04-09-2024 15:07-0400 Body temperature 37 Doretha Harris MD Work Phone: [facility] 04-09-2024 15:07-0400 SaO2% (BldA) [Mass fraction] 100 % Doretha Harris MD Work Phone: [facility] 04-09-2024 14:47-0400 Body temperature 37.0 degrees Celsius [facility] Comment on above: Performed By: #### [id number] #### TITUS Mercado ([id number]) [facility] ([facility]) [address] [place] [address] 04-09-2024 14:47-0400 SaO2% (BldA) [Mass fraction] 100 % [facility] Comment on above: Performed By: #### [id number] #### TITUS Mercado ([id number]) [facility] ([facility]) [address] [place] [address] 04-09-2024 12:11-0400 Body height 172.7 cm Doretha Harris MD Work Phone: [facility] 04-09-2024 12:11-0400 Body mass index (BMI) [Ratio] 27.12 kg/m2 Doretha Harris MD Work Phone: [facility] 04-09-2024 12:11-0400 Body weight 80.9 kg Doretha Harris MD Work Phone: [facility] 04-01-2024 10:47-0400 Body height 172.72 cm [facility] 04-01-2024 10:47-0400 Body mass index (BMI) [Ratio] 27.2 kg/m2 [facility] 04-01-2024 10:47-0400 Body weight 81.19 kg [facility] 04-01-2024 10:47-0400 Diastolic blood pressure 70 mm[Hg] [facility] 04-01-2024 10:47-0400 Heart rate 50 /min [facility] 04-01-2024 10:47-0400 Respiratory rate 16 /min [facility] 04-01-2024 10:47-0400 SaO2% (BldA) [Mass fraction] 99 % [facility] 04-01-2024 10:47-0400 Systolic blood pressure 120 mm[Hg] [facility] 01-31-2024 10:24-0400 Body height 172.72 cm [facility] 01-31-2024 10:24-0400 Body mass index (BMI) [Ratio] 27.3 kg/m2 [facility] 01-31-2024 10:24-0400 Body weight 81.64 kg [facility] 01-31-2024 10:24-0400 Diastolic blood pressure 70 mm[Hg] [facility] 01-31-2024 10:24-0400 Heart rate 75 /min [facility] 01-31-2024 10:24-0400 Respiratory rate 18 /min [facility] 01-31-2024 10:24-0400 SaO2% (BldA) [Mass fraction] 98 % [facility] 01-31-2024 10:24-0400 Systolic blood pressure 122 mm[Hg] [facility] 01-03-2024 13:36-0400 Body height 172.7 cm Doretha Harris MD Work Phone: [facility] 01-03-2024 13:36-0400 Body mass index (BMI) [Ratio] 27.43 kg/m2 Doretha Harris MD Work Phone: [facility] 01-03-2024 13:36-0400 Body weight 81.83 kg Dorehta Harris MD Work Phone: [facility] 01-03-2024 13:36-0400 Diastolic blood pressure 80 mm[Hg] Doretha Harris MD Work Phone: [facility] 01-03-2024 13:36-0400 Heart rate 80 /min Doretha Harris MD Work Phone: [facility] 01-03-2024 13:36-0400 Systolic blood pressure 160 mm[Hg] Doretha Harris MD Work Phone: [facility] 12-13-2023 10:00-0400 Body mass index (BMI) [Ratio] 27.1 kg/m2 Helder Jack MD Work Phone: [facility] 12-13-2023 10:00-0400 Body temperature 97.5 [degF] Helder Jack MD Work Phone: [facility] 12-13-2023 10:00-0400 Body weight 80.83 kg Helder Jack MD Work Phone: [facility] 12-13-2023 10:00-0400 Diastolic blood pressure 59 mm[Hg] Helder Jack MD Work Phone: [facility] 12-13-2023 10:00-0400 Heart rate 92 /min Helder Jack MD Work Phone: [facility] 12-13-2023 10:00-0400 Respiratory rate 17 /min Helder Jack MD Work Phone: [facility] 12-13-2023 10:00-0400 SaO2% (BldA) [Mass fraction] 96 % Helder Jack MD Work Phone: [facility] 12-13-2023 10:00-0400 Systolic blood pressure 133 mm[Hg] Helder Jack MD Work Phone: [facility] 12-12-2023 13:08-0400 Body height 172.7 cm Solomon Milks PA-C Work Phone: [facility] 12-12-2023 13:08-0400 Body mass index (BMI) [Ratio] 26.91 kg/m2 Solomon Milks PA-C Work Phone: [facility] 12-12-2023 13:08-0400 Body weight 80.29 kg Solomon Milks PA-C Work Phone: [facility] 12-12-2023 13:08-0400 Diastolic blood pressure 70 mm[Hg] Solomon Milks PA-C Work Phone: [facility] 12-12-2023 13:08-0400 Heart rate 91 /min Solomon Milks PA-C Work Phone: [facility] 12-12-2023 13:08-0400 Systolic blood pressure 116 mm[Hg] Solomon Milks PA-C Work Phone: [facility] 12-03-2023 10:51-0400 Body height 172.72 cm DO Griselda Kuns Work Phone: [facility] 12-03-2023 10:51-0400 Body mass index (BMI) [Ratio] 26.1 kg/m2 DO Griselda Kuns Work Phone: [facility] 12-03-2023 10:51-0400 Body weight 78.01 kg DO Griselda Kuns Work Phone: [facility] 12-03-2023 10:51-0400 Diastolic blood pressure 82 mm[Hg] DO Griselda Kuns Work Phone: [facility] 12-03-2023 10:51-0400 Heart rate 97 /min DO Griselda Kuns Work Phone: [facility] 12-03-2023 10:51-0400 Respiratory rate 18 /min DO Griselda Kuns Work Phone: [facility] 12-03-2023 10:51-0400 SaO2% (BldA) [Mass fraction] 96 % DO Griselda Kuns Work Phone: [facility] 12-03-2023 10:51-0400 Systolic blood pressure 110 mm[Hg] DO Griselda Kuns Work Phone: [facility] 11-02-2023 09:49-0400 Body height 170.6 cm Racquel Cole MD Work Phone: [facility] 11-02-2023 09:49-0400 Body mass index (BMI) [Ratio] 27.38 kg/m2 Racquel Cole MD Work Phone: [facility] 11-02-2023 09:49-0400 Body temperature 97.7 [degF] Racquel Cole MD Work Phone: [facility] 11-02-2023 09:49-0400 Body weight 79.7 kg Racquel Cole MD Work Phone: [facility] 11-02-2023 09:49-0400 Diastolic blood pressure 76 mm[Hg] Racquel Cole MD Work Phone: [facility] 11-02-2023 09:49-0400 Heart rate 72 /min Racquel Cole MD Work Phone: [facility] 11-02-2023 09:49-0400 Respiratory rate 16 /min Racquel Cole MD Work Phone: [facility] 11-02-2023 09:49-0400 SaO2% (BldA) [Mass fraction] 99 % Racquel Cole MD Work Phone: [facility] 11-02-2023 09:49-0400 Systolic blood pressure 130 mm[Hg] Racquel Cole MD Work Phone: [facility] 10-29-2023 10:32-0400 Body height 172.72 cm DO Griselda Kuns Work Phone: [facility] 10-29-2023 10:32-0400 Body mass index (BMI) [Ratio] 26.6 kg/m2 DO Griselda Kuns Work Phone: [facility] 10-29-2023 10:32-0400 Body weight 79.37 kg DO Griselda Kuns Work Phone: [facility] 10-29-2023 10:32-0400 Diastolic blood pressure 82 mm[Hg] DO Griselda Kuns Work Phone: [facility] 10-29-2023 10:32-0400 Heart rate 71 /min DO Griselda Kuns Work Phone: [facility] 10-29-2023 10:32-0400 Respiratory rate 16 /min DO Griselda Kuns Work Phone: [facility] 10-29-2023 10:32-0400 SaO2% (BldA) [Mass fraction] 98 % DO Griselda Kuns Work Phone: [facility] 10-29-2023 10:32-0400 Systolic blood pressure 128 mm[Hg] DO Griselda Kuns Work Phone: [facility] 10-18-2023 09:02-0400 Diastolic blood pressure 68 mm[Hg] DO Griselda Kuns Work Phone: [facility] 10-18-2023 09:02-0400 Systolic blood pressure 132 mm[Hg] DO Griselda Kuns Work Phone: [facility] 10-18-2023 08:58-0400 Body height 172.72 cm DO Griselda Kuns Work Phone: [facility] 10-18-2023 08:58-0400 Body mass index (BMI) [Ratio] 26.6 kg/m2 DO Griselda Kuns Work Phone: [facility] 10-18-2023 08:58-0400 Body weight 79.37 kg DO Griselda Kuns Work Phone: [facility] 10-18-2023 08:58-0400 Heart rate 57 /min DO Griselda Kuns Work Phone: [facility] 10-18-2023 08:58-0400 Respiratory rate 18 /min DO Griselda Kuns Work Phone: [facility] 10-18-2023 08:58-0400 SaO2% (BldA) [Mass fraction] 98 % DO Griselda Kuns Work Phone: [facility] 10-05-2023 09:37-0400 Body height 172.2 cm Helder Jack MD Work Phone: [facility] 10-05-2023 09:37-0400 Body mass index (BMI) [Ratio] 26.25 kg/m2 Helder Jack MD Work Phone: [facility] 10-05-2023 09:37-0400 Body temperature 97.3 [degF] Helder Jack MD Work Phone: [facility] 10-05-2023 09:37-0400 Body weight 77.84 kg Helder Jack MD Work Phone: [facility] 10-05-2023 09:37-0400 Diastolic blood pressure 68 mm[Hg] Helder Jack MD Work Phone: [facility] 10-05-2023 09:37-0400 Heart rate 81 /min Helder Jack MD Work Phone: [facility] 10-05-2023 09:37-0400 Respiratory rate 16 /min Helder Jack MD Work Phone: [facility] 10-05-2023 09:37-0400 SaO2% (BldA) [Mass fraction] 99 % Helder Jack MD Work Phone: [facility] 10-05-2023 09:37-0400 Systolic blood pressure 116 mm[Hg] Helder Jack MD Work Phone: [facility] 09-05-2023 13:44-0400 Diastolic blood pressure 99 mm[Hg] DO Griselda Kuns Work Phone: [facility] 09-05-2023 13:44-0400 Systolic blood pressure 160 mm[Hg] DO Griselda Kuns Work Phone: [facility] 09-05-2023 13:41-0400 Body height 172.72 cm DO Griselda Kuns Work Phone: [facility] 09-05-2023 13:41-0400 Body mass index (BMI) [Ratio] 27.8 kg/m2 DO Griselda Kuns Work Phone: [facility] 09-05-2023 13:41-0400 Body weight 83 kg DO Griselda Kuns Work Phone: [facility] 09-05-2023 13:41-0400 Heart rate 66 /min DO Griselda Kuns Work Phone: [facility] 09-05-2023 13:41-0400 Respiratory rate 18 /min DO Griselda Kuns Work Phone: [facility] 09-05-2023 13:41-0400 SaO2% (BldA) [Mass fraction] 99 % DO Griselda Kuns Work Phone: [facility] 09-05-2023 11:58-0400 Body height 172.72 cm DO Griselda Kuns Work Phone: [facility] 09-05-2023 11:58-0400 Body mass index (BMI) [Ratio] 27.3 kg/m2 DO Griselda Kuns Work Phone: [facility] 09-05-2023 11:58-0400 Body temperature 97.8 [degF] DO Griselda Kuns Work Phone: [facility] 09-05-2023 11:58-0400 Body weight 81.64 kg DO Griselda Kuns Work Phone: [facility] 09-05-2023 11:58-0400 Diastolic blood pressure 92 mm[Hg] DO Griselda Kuns Work Phone: [facility] 09-05-2023 11:58-0400 Heart rate 71 /min DO Griselda Kuns Work Phone: [facility] 09-05-2023 11:58-0400 SaO2% (BldA) [Mass fraction] 96 % DO Griselda Kuns Work Phone: [facility] 09-05-2023 11:58-0400 Systolic blood pressure 160 mm[Hg] DO Griselda Kuns Work Phone: [facility] 08-15-2023 15:41-0500 Body height 172.72 cm DO Griselda Kuns Work Phone: [facility] 08-15-2023 15:41-0500 Body mass index (BMI) [Ratio] 28.1 kg/m2 DO Griselda Kuns Work Phone: [facility] 08-15-2023 15:41-0500 Body weight 84.08 kg DO Griselda Kuns Work Phone: [facility] 08-15-2023 15:41-0500 Diastolic blood pressure 72 mm[Hg] DO Griselda Kuns Work Phone: [facility] 08-15-2023 15:41-0500 Heart rate 62 /min DO Griselda Kuns Work Phone: [facility] 08-15-2023 15:41-0500 Respiratory rate 18 /min DO Griselda Kuns Work Phone: [facility] 08-15-2023 15:41-0500 SaO2% (BldA) [Mass fraction] 99 % DO Griselda Kuns Work Phone: [facility] 08-15-2023 15:41-0500 Systolic blood pressure 128 mm[Hg] DO Griselda Kuns Work Phone: [facility] 08-02-2023 13:11-0500 Body height 172.72 cm DO Griselda Kuns Work Phone: [facility] 08-02-2023 13:11-0500 Body mass index (BMI) [Ratio] 27.9 kg/m2 DO Griselda Kuns Work Phone: [facility] 08-02-2023 13:11-0500 Body weight 83.46 kg DO Griselda Kuns Work Phone: [facility] 08-02-2023 13:11-0500 Diastolic blood pressure 70 mm[Hg] DO Griselda Kuns Work Phone: [facility] 08-02-2023 13:11-0500 Heart rate 68 /min DO Griselda Kuns Work Phone: [facility] 08-02-2023 13:11-0500 Respiratory rate 16 /min DO Griselda Kuns Work Phone: [facility] 08-02-2023 13:11-0500 SaO2% (BldA) [Mass fraction] 97 % DO Griselda Kuns Work Phone: [facility] 08-02-2023 13:11-0500 Systolic blood pressure 130 mm[Hg] DO Griselda Kuns Work Phone: [facility] 07-02-2023 09:30-0500 Body height 172.72 cm Griselda [employer] Other [facility] 07-02-2023 09:30-0500 Body mass index (BMI) [Ratio] 28.28 kg/m2 Griselda XML[employer] Other [employer] [facility] [employer] Other 07-02-2023 09:30-0500 Body weight 84.37 kg Griselda [employer] Other [employer] [facility] [employer] Other 07-02-2023 09:30-0500 Body weight 84.36 kg DO Griselda Kuns Work Phone: [facility] 07-02-2023 09:30-0500 Diastolic blood pressure 92 mm[Hg] Griselda Kuns Other [facility] 07-02-2023 09:30-0500 Respiratory rate 16 /min Griselda Kuns Other [employer] Other 07-02-2023 09:30-0500 SaO2% (BldA) [Mass fraction] 97 % Griselda Kuns Other [employer] Other 07-02-2023 09:30-0500 Systolic blood pressure 160 mm[Hg] Griselda Kuns Other [facility] 05-31-2023 13:45-0500 Body height 172.72 cm Griselda Kuns Other [facility] 05-31-2023 13:45-0500 Body mass index (BMI) [Ratio] 27.37 kg/m2 Griselda Kuns Other [employer] Other 05-31-2023 13:45-0500 Body weight 81.65 kg Griselda Kuns Other [facility] [employer] Other 05-31-2023 13:45-0500 Body weight 81.64 kg DO Griselda Kuns Work Phone: [facility] 05-31-2023 13:45-0500 Diastolic blood pressure 80 mm[Hg] Griselda Kuns Other [facility] 05-31-2023 13:45-0500 Respiratory rate 18 /min Griselda Kuns Other [employer] Other 05-31-2023 13:45-0500 SaO2% (BldA) [Mass fraction] 98 % Griselda Kuns Other [facility] [employer] Other 05-31-2023 13:45-0500 Systolic blood pressure 120 mm[Hg] Griselda Kuns Other [facility] 05-30-2023 11:15-0500 Body height 172.72 cm Ruddy Harvey Other [facility] 05-30-2023 11:15-0500 Body mass index (BMI) [Ratio] 27.52 kg/m2 Ruddy Harvey Other [employer] Other 05-30-2023 11:15-0500 Body temperature 97.8 [degF] Ruddy Harvey Other [employer] Other 05-30-2023 11:15-0500 Body weight 82.1 kg Ruddy Harvey Other [facility] 05-30-2023 11:15-0500 SaO2% (BldA) [Mass fraction] 98 % Ruddy Harvey Other [employer] Other 05-15-2023 13:20-0500 Body height 172.72 cm Lilliam Kamla Other [facility] 05-15-2023 13:20-0500 Body mass index (BMI) [Ratio] 27.52 kg/m2 Lilliam Kamla Other [facility] [employer] Other 05-15-2023 13:20-0500 Body weight 82.1 kg Lilliam Kamla Other [facility] 05-15-2023 13:20-0500 Diastolic blood pressure 84 mm[Hg] Lilliam Kamla Other [facility] 05-15-2023 13:20-0500 Respiratory rate 18 /min Lilliam Kamla Other [employer] Other 05-15-2023 13:20-0500 SaO2% (BldA) [Mass fraction] 98 % Lilliam Kamla Other [employer] Other 05-15-2023 13:20-0500 Systolic blood pressure 142 mm[Hg] Lilliam Kamla Other [facility] 05-07-2023 13:16-0500 Diastolic blood pressure 78 mm[Hg] DO Griselda Kuns Work Phone: [facility] 05-07-2023 13:16-0500 Heart rate 75 /min DO Griselda Kuns Work Phone: [facility] 05-07-2023 13:16-0500 Respiratory rate 16 /min DO Griselda Kuns Work Phone: [facility] 05-07-2023 13:16-0500 SaO2% (BldA) [Mass fraction] 96 % DO Griselda Kuns Work Phone: [facility] 05-07-2023 13:16-0500 Systolic blood pressure 135 mm[Hg] DO Griselda Kuns Work Phone: [facility] 05-07-2023 10:30-0500 Inhaled oxygen flow rate 3 L/min DO Grisedla Kuns Work Phone: [facility] 05-07-2023 08:29-0500 Body height 172.72 cm DO Griselda Kuns Work Phone: [facility] 05-07-2023 08:29-0500 Body weight 79.37 kg DO Griselda Kuns Work Phone: [facility] 05-03-2023 09:15-0500 Body height 172.72 cm Ruddy Harvey Other [employer] Other 05-03-2023 09:15-0500 Body mass index (BMI) [Ratio] 27.06 kg/m2 Ruddy Harvey Other [employer] Other 05-03-2023 09:15-0500 Body temperature 97.8 [degF] Ruddy Harvey Other [employer] Other 05-03-2023 09:15-0500 Body weight 80.74 kg Ruddy Harvey Other [employer] Other 05-03-2023 09:15-0500 Diastolic blood pressure 78 mm[Hg] Ruddy Harvey Other [employer] Other 05-03-2023 09:15-0500 SaO2% (BldA) [Mass fraction] 97 % Ruddy Harvey Other [employer] Other 05-03-2023 09:15-0500 Systolic blood pressure 146 mm[Hg] Ruddy Harvey Other [employer] Other 05-01-2023 10:30-0500 Body height 172.72 cm Griselda [employer] Other [employer] Other 05-01-2023 10:30-0500 Body mass index (BMI) [Ratio] 27.06 kg/m2 Griselda XML[employer] Other [employer] Other 05-01-2023 10:30-0500 Body weight 80.74 kg Griselda XML[employer] Other [employer] Other 05-01-2023 10:30-0500 Diastolic blood pressure 80 mm[Hg] Griselda XML[employer]s Other [employer] Other 05-01-2023 10:30-0500 Respiratory rate 18 /min Griselda XML[employer] Other [employer] Other 05-01-2023 10:30-0500 SaO2% (BldA) [Mass fraction] 96 % Griselda Yibailin Other [employer] Other 05-01-2023 10:30-0500 Systolic blood pressure 144 mm[Hg] Griselda Kuns Other [employer] Other 04-11-2023 10:40-0400 Body height 172.72 cm Lilliam Cason Other [employer] Other 04-11-2023 10:40-0400 Body mass index (BMI) [Ratio] 26.67 kg/m2 Lilliam Grecooroge Other [employer] Other 04-11-2023 10:40-0400 Body weight 79.56 kg Lilliam Grecooroge Other [employer] Other 04-11-2023 10:40-0400 Diastolic blood pressure 80 mm[Hg] Lilliam Kamla Other [employer] Other 04-11-2023 10:40-0400 SaO2% (BldA) [Mass fraction] 96 % Lilliam Grecooroge Other [employer] Other 04-11-2023 10:40-0400 Systolic blood pressure 148 mm[Hg] Lilliam Kamla Other [employer] Other 03-21-2023 02:42-0400 Diastolic blood pressure 98 mm[Hg] DO Griselda Kuns Work Phone: [facility] 03-21-2023 02:42-0400 Heart rate 72 /min DO Griselda Kuns Work Phone: [facility] 03-21-2023 02:42-0400 Respiratory rate 16 /min DO Griselda Kuns Work Phone: [facility] 03-21-2023 02:42-0400 SaO2% (BldA) [Mass fraction] 97 % DO Griselda Kuns Work Phone: [facility] 03-21-2023 02:42-0400 Systolic blood pressure 170 mm[Hg] DO Griselda Kuns Work Phone: [facility] 03-21-2023 00:12-0400 Body height 172.72 cm DO Griselda Kuns Work Phone: [facility] 03-21-2023 00:12-0400 Body temperature 98 [degF] DO Griselda Kuns Work Phone: [facility] 03-21-2023 00:12-0400 Body weight 79.37 kg DO Griselda Kuns Work Phone: [facility] 03-15-2023 10:30-0400 Body height 172.72 cm Griselda XML[employer] Other [employer] Other 03-15-2023 10:30-0400 Body mass index (BMI) [Ratio] 26.76 kg/m2 Griselda XMLAWs Other [employer] Other 03-15-2023 10:30-0400 Body weight 79.83 kg Griselda XML[employer] Other [employer] Other 03-15-2023 10:30-0400 Diastolic blood pressure 86 mm[Hg] Griselda XMLAWs Other [employer] Other 03-15-2023 10:30-0400 Respiratory rate 16 /min Griselda XMLAWs Other [employer] Other 03-15-2023 10:30-0400 SaO2% (BldA) [Mass fraction] 97 % Griselda XMLAWs Other [employer] Other 03-15-2023 10:30-0400 Systolic blood pressure 174 mm[Hg] Griselda Kuns Other [employer] Other 03-08-2023 10:00-0400 Body height 172.72 cm Griselda Kuns Other [employer] Other 03-08-2023 10:00-0400 Body mass index (BMI) [Ratio] 27.18 kg/m2 Griselda Kuns Other [employer] Other 03-08-2023 10:00-0400 Body weight 81.1 kg Griselda Kuns Other [employer] Other 03-08-2023 10:00-0400 Diastolic blood pressure 82 mm[Hg] Griselda Kuns Other [employer] Other 03-08-2023 10:00-0400 Respiratory rate 16 /min Griselda Kuns Other [employer] Other 03-08-2023 10:00-0400 SaO2% (BldA) [Mass fraction] 96 % Griselda Kuns Other [employer] Other 03-08-2023 10:00-0400 Systolic blood pressure 118 mm[Hg] Griselda Kuns Other [employer] Other 02-26-2023 14:13-0400 Body height 172.72 cm DO Griselda Kuns Work Phone: [facility] 02-26-2023 14:13-0400 Body temperature 98 [degF] DO Griselda Kuns Work Phone: [facility] 02-26-2023 14:13-0400 Body weight 78.6 kg DO Griselda Kuns Work Phone: [facility] 02-26-2023 14:13-0400 Diastolic blood pressure 77 mm[Hg] DO Griselda Kuns Work Phone: [facility] 02-26-2023 14:13-0400 Heart rate 56 /min DO Griselda Kuns Work Phone: [facility] 02-26-2023 14:13-0400 Respiratory rate 18 /min DO Griselda Kuns Work Phone: [facility] 02-26-2023 14:13-0400 SaO2% (BldA) [Mass fraction] 96 % DO Griselda Kuns Work Phone: [facility] 02-26-2023 14:13-0400 Systolic blood pressure 142 mm[Hg] DO Griselda Kuns Work Phone: [facility] 12-05-2022 10:15-0400 Body height 172.72 cm Griselda Hastings Other [employer] Other 12-05-2022 10:15-0400 Body mass index (BMI) [Ratio] 25.85 kg/m2 Griseldakeith Mnedezs Other [employer] Other 12-05-2022 10:15-0400 Body weight 77.11 kg Griseldakeith Mendezs Other [employer] Other 12-05-2022 10:15-0400 Diastolic blood pressure 80 mm[Hg] Griselda XML[employer] Other [employer] Other 12-05-2022 10:15-0400 Respiratory rate 16 /min Griselda XML[employer]s Other [employer] Other 12-05-2022 10:15-0400 SaO2% (BldA) [Mass fraction] 96 % Griselda Hastings Other [employer] Other 12-05-2022 10:15-0400 Systolic blood pressure 140 mm[Hg] Griselda Hastings Other [employer] Other 09-13-2022 10:57-0400 Body height 170.6 cm Kelly Moorek PA-C Work Phone: [facility] 09-13-2022 10:57-0400 Body temperature 97.39 [degF] Kelly Moorek PA-C Work Phone: [facility] 09-13-2022 10:57-0400 Body weight 77.34 kg Kelly Moorek PA-C Work Phone: [facility] 09-13-2022 10:57-0400 Diastolic blood pressure 61 mm[Hg] Kelly Moorek PA-C Work Phone: [facility] 09-13-2022 10:57-0400 Heart rate 70 /min Kelly Moorek PA-C Work Phone: [facility] 09-13-2022 10:57-0400 Respiratory rate 18 /min Kelly Moorek PA-C Work Phone: [facility] 09-13-2022 10:57-0400 SaO2% (BldA) [Mass fraction] 100 % Kelly Moorek PA-C Work Phone: [facility] 09-13-2022 10:57-0400 Systolic blood pressure 133 mm[Hg] Kelly Moorek PA-C Work Phone: [facility] 08-31-2022 11:15-0400 Body height 172.72 cm Griseldakeith Mendezroge Other [employer] Other 08-31-2022 11:15-0400 Body mass index (BMI) [Ratio] 26.79 kg/m2 Griselda Kuns Other [employer] Other 08-31-2022 11:15-0400 Body weight 79.92 kg Griselda Kuns Other [employer] Other 08-31-2022 11:15-0400 Diastolic blood pressure 78 mm[Hg] Griselda Kuns Other [employer] Other 08-31-2022 11:15-0400 Respiratory rate 16 /min Griselda Kuns Other [employer] Other 08-31-2022 11:15-0400 SaO2% (BldA) [Mass fraction] 98 % Griselda Kuns Other [employer] Other 08-31-2022 11:15-0400 Systolic blood pressure 138 mm[Hg] Griselda Kuns Other [employer] Other 08-01-2022 10:30-0500 Body height 172.72 cm Griselda Kuns Other [employer] Other 08-01-2022 10:30-0500 Body mass index (BMI) [Ratio] 27.27 kg/m2 Griselda Kuns Other [employer] Other 08-01-2022 10:30-0500 Body weight 81.38 kg Griselda Kuns Other [employer] Other 08-01-2022 10:30-0500 Diastolic blood pressure 82 mm[Hg] Griselda Kuns Other [employer] Other 08-01-2022 10:30-0500 Respiratory rate 16 /min Griselda Kuns Other [employer] [facility] [employer] Other 08-01-2022 10:30-0500 SaO2% (BldA) [Mass fraction] 99 % Griselda Kuns Other [facility] [employer] Other 08-01-2022 10:30-0500 Systolic blood pressure 146 mm[Hg] Griselda Kuns Other [facility] [employer] Other 07-17-2022 09:45-0500 Diastolic blood pressure 98 mm[Hg] DO Griselda Kuns Work Phone: [facility] 07-17-2022 09:45-0500 Heart rate 69 /min DO Griselda Kuns Work Phone: [facility] 07-17-2022 09:45-0500 Respiratory rate 16 /min DO Griselda Kuns Work Phone: [facility] 07-17-2022 09:45-0500 SaO2% (BldA) [Mass fraction] 99 % DO Griselda Kuns Work Phone: [facility] 07-17-2022 09:45-0500 Systolic blood pressure 144 mm[Hg] DO Griselda Kuns Work Phone: [facility] 07-17-2022 07:58-0500 Body height 172.72 cm DO Griselda Kuns Work Phone: [facility] 07-17-2022 07:58-0500 Body weight 79.37 kg DO Griselda Kuns Work Phone: [facility] 06-28-2022 10:20-0500 Body height 172.72 cm Trish Blades Other [facility] [employer] Other 06-28-2022 10:20-0500 Body mass index (BMI) [Ratio] 26.67 kg/m2 Trish Blades Other [employer] Other 06-28-2022 10:20-0500 Body weight 79.56 kg Trish Blades Other [employer] Other 06-28-2022 10:20-0500 Diastolic blood pressure 80 mm[Hg] Trish Blades Other [employer] Other 06-28-2022 10:20-0500 Systolic blood pressure 140 mm[Hg] Trish Blades Other [employer] Other 05-26-2022 13:30-0500 Body height 172.72 cm Griselda Kuns Other [employer] Other 05-26-2022 13:30-0500 Body mass index (BMI) [Ratio] 26.7 kg/m2 Griselda Kuns Other [employer] Other 05-26-2022 13:30-0500 Body weight 79.65 kg Griselda Kuns Other [employer] Other 05-26-2022 13:30-0500 Diastolic blood pressure 82 mm[Hg] Griselda Kuns Other [employer] Other 05-26-2022 13:30-0500 Respiratory rate 18 /min Griselda Kuns Other [employer] Other 05-26-2022 13:30-0500 SaO2% (BldA) [Mass fraction] 98 % Griselda Kuns Other [employer] Other 05-26-2022 13:30-0500 Systolic blood pressure 144 mm[Hg] Griselda Kuns Other [facility] [employer] Other 04-17-2022 00:30-0400 Diastolic blood pressure 64 mm[Hg] DO Griselda Kuns Work Phone: [facility] 04-17-2022 00:30-0400 Heart rate 78 /min DO Griselda Kuns Work Phone: [facility] 04-17-2022 00:30-0400 Respiratory rate 16 /min DO Griselda Kuns Work Phone: [facility] 04-17-2022 00:30-0400 SaO2% (BldA) [Mass fraction] 97 % DO Rgiselda Kuns Work Phone: [facility] 04-17-2022 00:30-0400 Systolic blood pressure 135 mm[Hg] DO Griselda Kuns Work Phone: [facility] 04-16-2022 19:45-0400 Body height 172.72 cm DO Griselda Kuns Work Phone: [facility] 04-16-2022 19:45-0400 Body temperature 98.1 [degF] DO Griselda Kuns Work Phone: [facility] 04-16-2022 19:45-0400 Body weight 78 kg DO Griselda Kuns Work Phone: [facility] 04-06-2022 16:31-0400 Body height 172.72 cm DO Griselda Kuns Work Phone: [facility] 04-06-2022 16:31-0400 Body temperature 98.1 [degF] DO Griselda Kuns Work Phone: [facility] 04-06-2022 16:31-0400 Body weight 79.37 kg DO Griselda Kuns Work Phone: [facility] 04-06-2022 16:31-0400 Diastolic blood pressure 108 mm[Hg] DO Griselda Kuns Work Phone: [facility] 04-06-2022 16:31-0400 Heart rate 95 /min DO Grisleda Kuns Work Phone: [facility] 04-06-2022 16:31-0400 Respiratory rate 19 /min DO Griselda Kuns Work Phone: [facility] 04-06-2022 16:31-0400 SaO2% (BldA) [Mass fraction] 97 % DO Griselda Kuns Work Phone: [facility] 04-06-2022 16:31-0400 Systolic blood pressure 138 mm[Hg] DO Griselda Kuns Work Phone: [facility] 03-16-2022 13:30-0400 Body height 172.72 cm Griselda XMLAWs Other [employer] Other 03-16-2022 13:30-0400 Body mass index (BMI) [Ratio] 26.91 kg/m2 Griselda XMLAWs Other [employer] Other 03-16-2022 13:30-0400 Body weight 80.29 kg Griselda XML[employer]s Other [employer] Other 03-16-2022 13:30-0400 Diastolic blood pressure 80 mm[Hg] Griselda XMLAWs Other [employer] Other 03-16-2022 13:30-0400 Respiratory rate 16 /min Griselda XMLAWs Other [employer] Other 03-16-2022 13:30-0400 SaO2% (BldA) [Mass fraction] 97 % Griselda XMLAWs Other [employer] Other 03-16-2022 13:30-0400 Systolic blood pressure 140 mm[Hg] Griselda Kuns Other [employer] Other 01-30-2022 12:00-0400 Body height 172.72 cm Griselda Kuns Other [employer] Other 01-30-2022 12:00-0400 Body mass index (BMI) [Ratio] 26.3 kg/m2 Griselda Kuns Other [employer] Other 01-30-2022 12:00-0400 Body weight 78.47 kg Griselda Kuns Other [employer] Other 01-30-2022 12:00-0400 Diastolic blood pressure 82 mm[Hg] Griselda Kuns Other [employer] Other 01-30-2022 12:00-0400 Respiratory rate 16 /min Griselda Kuns Other [employer] Other 01-30-2022 12:00-0400 SaO2% (BldA) [Mass fraction] 99 % Griselda Kuns Other [employer] Other 01-30-2022 12:00-0400 Systolic blood pressure 146 mm[Hg] Griselda Kuns Other [employer] Other 12-26-2021 11:00-0400 Body height 172.72 cm Griselda Kuns Other [employer] Other 12-26-2021 11:00-0400 Body mass index (BMI) [Ratio] 26.61 kg/m2 Griselda Kuns Other [employer] Other 12-26-2021 11:00-0400 Body weight 79.38 kg Griselda Kuns Other [employer] Other 12-26-2021 11:00-0400 Diastolic blood pressure 80 mm[Hg] Griselda Kuns Other [employer] Other 12-26-2021 11:00-0400 Respiratory rate 16 /min Griselda Kuns Other [employer] Other 12-26-2021 11:00-0400 SaO2% (BldA) [Mass fraction] 96 % Griselda Kuns Other [employer] Other 12-26-2021 11:00-0400 Systolic blood pressure 166 mm[Hg] Griselda Kuns Other [employer] Other 12-05-2021 10:15-0400 Body height 172.72 cm Griselda Kuns Other [employer] Other 12-05-2021 10:15-0400 Body mass index (BMI) [Ratio] 269.71 kg/m2 Griselda Kuns Other [employer] Other 12-05-2021 10:15-0400 Body weight 804.69 kg Griselda Kuns Other [employer] Other 12-05-2021 10:15-0400 Diastolic blood pressure 72 mm[Hg] Griselda Kuns Other [employer] Other 12-05-2021 10:15-0400 Respiratory rate 18 /min Griselda Kuns Other [employer] Other 12-05-2021 10:15-0400 SaO2% (BldA) [Mass fraction] 99 % Griselda Kuns Other [employer] Other 12-05-2021 10:15-0400 Systolic blood pressure 130 mm[Hg] Griselda Kuns Other [employer] Other 11-08-2021 11:15-0400 Body height 172.72 cm Griselda Kuns Other [employer] Other 11-08-2021 11:15-0400 Body mass index (BMI) [Ratio] 27.06 kg/m2 Griselda Kuns Other [employer] Other 11-08-2021 11:15-0400 Body weight 80.74 kg Griselda Kuns Other [employer] Other 11-08-2021 11:15-0400 Diastolic blood pressure 80 mm[Hg] Griselda Kuns Other [employer] Other 11-08-2021 11:15-0400 Respiratory rate 16 /min Griselda Kuns Other [employer] Other 11-08-2021 11:15-0400 SaO2% (BldA) [Mass fraction] 97 % Griselda Kuns Other [employer] Other 11-08-2021 11:15-0400 Systolic blood pressure 128 mm[Hg] Griselda Kuns Other [employer] Other 11-03-2021 09:38-0400 Body height 170.51 cm Griselda Hastings Work Phone: [facility] Work Phone: 11-03-2021 09:38-0400 Body mass index (BMI) [Ratio] 27.05 kg/m2 Griselda Hastings Work Phone: [facility] Work Phone: 11-03-2021 09:38-0400 Body surface area Derived from formula 1.91 m2 Griselda Hastings Work Phone: [facility] Work Phone: 11-03-2021 09:38-0400 Body temperature 98.2 [degF] Griselda Hastings Work Phone: [facility] Work Phone: 11-03-2021 09:38-0400 Body weight 78.65 kg Griselda Hastings Work Phone: [facility] Work Phone: 11-03-2021 09:38-0400 Diastolic blood pressure 67 mm[Hg] Griselda Hastings Work Phone: [facility] Work Phone: 11-03-2021 09:38-0400 Heart rate 63 /min Griselda Hastings Work Phone: [facility] Work Phone: 11-03-2021 09:38-0400 Respiratory rate 16 /min Griselda Hastings Work Phone: [facility] Work Phone: 11-03-2021 09:38-0400 SaO2% (BldA) [Mass fraction] 99 % Griselda Hastings Work Phone: [facility] Work Phone: 11-03-2021 09:38-0400 Systolic blood pressure 147 mm[Hg] Griselda R Kuns Work Phone: [facility] Work Phone: 11-03-2021 09:38-0400 7 1 Griselda R Kuns Work Phone: [facility] Work Phone: Comment on above: [employer] 11-01-2021 13:30-0400 Body height 172.72 cm Griselda Andreas Other [employer] [facility] [employer] Other 11-01-2021 13:30-0400 Body mass index (BMI) [Ratio] 26.61 kg/m2 Griselda Andreas Other [employer] Other 11-01-2021 13:30-0400 Body weight 79.38 kg Griseldakeith Mendezs Other [employer] Other 11-01-2021 13:30-0400 Diastolic blood pressure 78 mm[Hg] Griselda Kuns Other [employer] Other 11-01-2021 13:30-0400 Respiratory rate 18 /min Griselda Andreas Other [employer] Other 11-01-2021 13:30-0400 SaO2% (BldA) [Mass fraction] 99 % Griselda Kuns Other [employer] Other 11-01-2021 13:30-0400 Systolic blood pressure 140 mm[Hg] Griselda Kuns Other [employer] Other 10-24-2021 09:45-0400 Body height 172.72 cm Sheng Schneider Other [employer] Other 10-24-2021 09:45-0400 Body mass index (BMI) [Ratio] 26.76 kg/m2 Sheng Schneider Other [employer] Other 10-24-2021 09:45-0400 Body weight 79.83 kg Sheng Schneider Other [employer] Other 10-13-2021 09:50-0400 Body height 172 cm Racquel Cole MD Work Phone: [facility] 10-13-2021 09:50-0400 Body temperature 97.5 [degF] Racquel Cole MD Work Phone: [facility] 10-13-2021 09:50-0400 Body weight 81.28 kg Racquel Cole MD Work Phone: [facility] 10-13-2021 09:50-0400 Diastolic blood pressure 77 mm[Hg] Racquel Cole MD Work Phone: [facility] 10-13-2021 09:50-0400 Heart rate 70 /min Racquel Cole MD Work Phone: [facility] 10-13-2021 09:50-0400 Respiratory rate 16 /min Racquel Cole MD Work Phone: [facility] 10-13-2021 09:50-0400 SaO2% (BldA) [Mass fraction] 99 % Racquel Cole MD Work Phone: [facility] 10-13-2021 09:50-0400 Systolic blood pressure 152 mm[Hg] Racquel Cole MD Work Phone: [facility] 09-19-2021 10:45-0400 Body height 172.72 cm Griselda Hastings Other [employer] Other 09-19-2021 10:45-0400 Body mass index (BMI) [Ratio] 26.15 kg/m2 Griselda Kuns Other [employer] Other 09-19-2021 10:45-0400 Body weight 78.02 kg Griselda Kuns Other [employer] Other 09-19-2021 10:45-0400 Diastolic blood pressure 80 mm[Hg] Griselda Kuns Other [employer] Other 09-19-2021 10:45-0400 Respiratory rate 18 /min Griselda Kuns Other [employer] Other 09-19-2021 10:45-0400 SaO2% (BldA) [Mass fraction] 99 % Griselda Kuns Other [employer] Other 09-19-2021 10:45-0400 Systolic blood pressure 140 mm[Hg] Griselda Kuns Other [employer] Other 06-30-2021 13:30-0500 Body height 172.72 cm Griselda Kuns Other [employer] Other 04-14-2021 08:45-0400 Body height 172.72 cm Griselda Kuns Other [employer] Other 04-14-2021 08:45-0400 Body mass index (BMI) [Ratio] 25.85 kg/m2 Griselda Kuns Other [employer] Other 04-14-2021 08:45-0400 Body weight 77.11 kg Griselda Kuns Other [employer] Other 04-14-2021 08:45-0400 Diastolic blood pressure 80 mm[Hg] Griselda Hastings Other [employer] Other 04-14-2021 08:45-0400 Respiratory rate 16 /min Griselda Hastings Other [employer] Other 04-14-2021 08:45-0400 SaO2% (BldA) [Mass fraction] 99 % Griselda Andrearoge Other [employer] Other 04-14-2021 08:45-0400 Systolic blood pressure 124 mm[Hg] Griselda Hastings Other [employer] Other Encounters Encounter Date Encounter Type Care Provider Facility Start: 02-13-2025 End: [facility] Start: 02-09-2025 End: 02-09-2025 [facility]ulatory [facility] Start: 02-04-2025 End: 02-04-2025 ambulatory OZIEL CADENA Not Available Start: 02-04-2025 End: 02-04-2025 Lorenza Cadena MD Work Phone: [facility] Start: 02-04-2025 End: 02-04-2025 Lorenza Cadena MD Work Phone: [facility] Start: 01-26-2025 End: 01-26-2025 ambulatory Sarina Ramsey MD Facility:[facility] Start: 01-12-2025 End: 01-12-2025 ambulatory Griselda Hastings DO Work Phone: [facility] Work Phone: Start: 01-12-2025 End: 01-12-2025 Patient encounter procedure Solomon Mullins APRN -[facility] Work Phone: Start: 01-08-2025 End: 01-08-2025 Bamboo flowsheet Anahi Franco PA Work Phone: [facility] Start: 01-08-2025 End: 01-08-2025 Bamboo flowsheet Anahi Franco PA Work Phone: [facility] Start: 01-08-2025 End: 01-08-2025 Office outpatient visit 15 minutes Anahi Franco PA Work Phone: [facility] Comment on above: Melanocytic nevus of trunk (Primary Dx); Seborrheic keratosis; Inflamed seborrheic keratosis; Actinic keratosis; Capillary angioma; History of SCC (squamous cell carcinoma) of skin Start: 01-08-2025 End: 01-08-2025 ambulatory ANAHI FRANCO Not Available Start: 12-29-2024 End: 12-29-2024 ambulatory DORETHA HARRIS Not Available Start: 12-24-2024 End: 12-24-2024 Bamboo flowsheet Oziel Cadena MD Work Phone: [facility] Start: 12-24-2024 End: 12-24-2024 Bamboo flowsheet Oziel Cadena MD Work Phone: [facility] Start: 12-24-2024 End: 12-24-2024 Clinical Support Oziel Cadena MD Work Phone: [facility] Comment on above: Nerve root and plexu s disorder, unspecified (Primary Dx); Acute pain of left shoulder Start: 2024 End: 2024 Patient encounter procedure Griseldakeith Mendezs DO Work Phone: [facility] Start: 2024 End: 2024 ambulatory Griselda Kuns DO Work Phone: [facility] Work Phone: Start: 11-19-2024 End: 11-19-2024 ambulatory Griselda Kuns DO Work Phone: [facility] Work Phone: Start: 11-19-2024 End: 11-19-2024 Patient encounter procedure Griselda Kuns DO Work Phone: [facility] Work Phone: Start: 11-17-2024 End: 11-17-2024 ambulatory Griselda Kuns DO Work Phone: [facility] Work Phone: Start: 11-17-2024 End: 11-17-2024 Patient encounter procedure Griselda Kuns DO Work Phone: [facility] Work Phone: Start: 11-12-2024 End: 11-12-2024 Bamboo flowsheet Oziel Cadena MD Work Phone: [facility] Start: 11-12-2024 End: 11-12-2024 Bamboo flowsheet Oziel Cadena MD Work Phone: [facility] Start: 11-12-2024 End: 11-12-2024 Clinical Support Oziel Cadena MD Work Phone: [facility] Comment on above: Nerve root and plexu s disorder, unspecified (Primary Dx); Acute pain of left shoulder Start: 11-07-2024 End: 11-07-2024 ambulatory RACQUEL ABHYANKAR Facility:[facility] Start: 11-05-2024 Non-patient / Non-visit Griselda Kuns DO Work Phone: [facility] Work Phone: Start: 11-05-2024 End: 11-05-2024 Admission to same day surgery center Griselda Kuns DO Work Phone: [facility] Work Phone: Start: 11-05-2024 End: 11-05-2024 ambulatory Griselda Kuns Facility:[facility] Start: 11-03-2024 End: 11-03-2024 Telephone encounter Racquel Cole MD Work Phone: Hematology/Oncology Comment on above: Orders Start: 11-03-2024 Non-patient / Non-visit Griselda Kuns DO Work Phone: [facility] Work Phone: Start: 11-03-2024 ambulatory ARCQUEL COLE Facilit y:[facility] Start: 11-03-2024 End: 11-03-2024 Subsequent hospital visit by physician Arrival Time Radiology Work Phone: Radiology Pet CT Comment on above: 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] Start: 10-27-2024 End: 10-27-2024 ambulatory Griselda Kuns DO Work Phone: [facility] Work Phone: Start: 10-27-2024 End: 10-27-2024 Patient encounter procedure Griselda Andreas DO Work [facility] Work Phone: Start: 10-21-2024 End: 10-21-2024 Subsequent hospital visit by physician Rad External Film EF [facility] [employer]TERNAL [employer] Comment on above: Arrived Start: 10-21-2024 End: 10-21-2024 ambulatory [facility] Start: 10-13-2024 End: 10-13-2024 Office outpatient visit 40 minutes Doretha Harris MD Work Phone: [facility] Comment on above: Status post cervical spinal fusion (Primary Dx) Start: 10-13-2024 End: 10-13-2024 ambulatory [facility] Amb[facility] Start: 10-10-2024 End: 10-10-2024 ambulatory Griselda Kuns DO Work Phone: [facility] Work Phone: Start: 10-10-2024 End: 10-10-2024 Patient encounter procedure Griselda Kuns DO Work Phone: [facility] Work Phone: Start: 10-10-2024 End: 10-10-2024 Patient encounter procedure Griselda Kuns DO Work Phone: [facility] [place] Work Phone: Start: 10-10-2024 End: 10-10-2024 ambulatory Griselda Kuns DO Work Phone: [facility] Work Phone: Start: 10-07-2024 End: 10-07-2024 Patient encounter procedure Griselda Kuns DO Work Phone: [facility] [place] Work Phone: Start: 10-07-2024 End: 10-07-2024 ambulatory Griselda Kuns DO Work Phone: [facility] Work Phone: Start: 10-06-2024 End: 10-06-2024 Emergency department patient visit Griselda Kuns DO Work Phone: [facility] Work Phone: Start: 09-22-2024 End: 09-22-2024 ambulatory Sarina Ramsey MD Facility:[facility] [place] Start: 09-20-2024 End: 09-20-2024 Emergency department patient visit Griselda Kuns DO Work Phone: [facility] Work Phone: Start: 09-15-2024 End: 09-15-2024 ambulatory Sarina Ramsey MD Facility:[facility] [place] Start: 09-11-2024 End: 09-11-2024 [place] flowsheet Oziel Cadena MD Work Phone: [facility] Start: 09-11-2024 End: 09-11-2024 Bamboo flowsheet Oziel Cadena MD Work Phone: [facility] Start: 09-11-2024 End: 09-11-2024 Clinical Support Oziel Cadena MD Work Phone: [facility] Comment on above: Nerve root and plexu s disorder, unspecified (Primary Dx) Start: 09-11-2024 End: 09-11-2024 Patient encounter procedure Griselda Kuns DO Work Phone: [facility] Vascular Surg Work Phone: Start: 09-11-2024 End: 09-11-2024 ambulatory Griselda Kuns DO Work Phone: [facility] Work Phone: Start: 07-31-2024 End: 07-31-2024 Bamboo flowsheet Oziel Cadena MD Work Phone: [facility] Start: 07-31-2024 End: 07-31-2024 Bamboo flowsheet Oziel Cadena MD Work Phone: [facility] Start: 07-31-2024 End: 07-31-2024 Clinical Support Oziel Cadena MD Work Phone: [facility] Comment on above: Nerve root and plexu s disorder, unspecified (Primary Dx) Start: 07-28-2024 End: 07-28-2024 ambulatory [facility] Start: 07-07-2024 End: 07-07-2024 ambulatory Sarina Ramsey MD Facility:[facility] [place] Start: 07-03-2024 End: 07-03-2024 ambulatory Griselda Kuns DO Work Phone: [facility] Work Phone: Start: 07-03-2024 End: 07-03-2024 Patient encounter procedure Griselda Kuns DO Work Phone: [facility] [place] Work Phone: Start: 07-02-2024 End: 07-02-2024 Bamboo flowsheet Oziel Cadena MD Work Phone: [facility] Start: 07-02-2024 End: 07-02-2024 Bamboo flowspeggy Cadena MD Work Phone: [facility] Start: 07-02-2024 End: 07-02-2024 Clinical Support Oziel Cadena MD Work Phone: [facility] Comment on above: Nerve root and plexu s disorder, unspecified (Primary Dx) Start: 06-30-2024 End: 06-30-2024 Postop follow up visit related to original px Doretha Harris MD Work Phone: [facility] Comment on above: Status post cervical spinal fusion (Primary Dx) Start: 06-30-2024 End: 06-30-2024 ambulatory [facility] Ambulatory Start: 06-24-2024 End: 06-24-2024 Patient encounter procedure Griselda Kuns DO Work Phone: [facility] Work Phone: Start: 06-24-2024 End: 06-24-2024 ambulatory Griselda Kuns DO Work Phone: [facility] Work Phone: Start: 05-21-2024 End: 05-21-2024 Bamboo flowsheet Oziel Cadena MD Work Phone: [facility] Start: 05-21-2024 End: 05-21-2024 Bamboo flowsheet Oziel Cadena MD Work Phone: [facility] Start: 05-21-2024 End: 05-21-2024 Clinical Support Oziel Cadena MD Work Phone: [facility] Comment on above: Other nerve root and plexus disorders (Primary Dx); Cervical paraspinal muscle spasm; Cervical stenosis of spinal canal Start: 04-30-2024 End: 04-30-2024 Postop follow up visit related to original px Solomon Narayanan PA-C Work Phone: [place] Comment on above: Cervical radiculopat hy (Primary Dx); Status post cervical spinal fusion; Acute postoperative pain; Muscle spasms of neck Start: 04-30-2024 End: 04-30-2024 ambulatory [place] [facility] Start: 04-28-2024 End: 04-28-[address] [facility] Work Phone: Start: 04-28-2024 End: 04-28-2024 Patient encounter procedure [facility] Cardiology Work Phone: Start: 04-09-2024 End: 04-10-2024 ambulatory [facility] Start: 04-09-2024 End: 04-10-2024 Evaluation and management of inpatient Doretha Harris MD Work Phone: [facility] [place] [facility] Comment on above: Cervical radiculopat hy (Primary Dx); Senile osteoporosis Start: 04-01-2024 End: 04-01-2024 [facility] [facility] Work Phone: Start: 04-01-2024 End: 04-01-2024 Patient encounter procedure [facility] [place] Work Phone: Start: 03-31-2024 End: 03-31-2024 Subsequent hospital visit by physician Rad External Film EF RAD EXTERNAL FILM VIRTUAL Comment on above: Arrived Start: 03-31-2024 End: 03-31-2024 ambulatory [facility] Start: 03-26-2024 End: 03-26-2024 ambulatory [facility] Start: 03-19-2024 End: 03-19-2024 ambulatory [facility] Start: 02-13-2024 End: 02-13-2024 Subsequent hospital visit by physician Kasey X-Ray 1 [facility] Comment on above: Cervical radiculopat hy Start: 02-13-2024 End: 02-13-2024 ambulatory [facility] Start: 02-13-2024 End: 02-13-2024 ambulatory [facility] Start: 02-11-2024 End: 02-12-2024 ambulatory [facility] Start: 02-11-2024 End: 02-11-2024 ambulatory [facility] Start: 02-11-2024 End: 02-11-2024 Subsequent hospital visit by physician Daniel [id number] Cr Nonv1 Holter/Ecg Resource [facility] Comment on above: Cervical radiculopat hy; Senile osteoporosis Start: 02-04-2024 End: 02-04-2024 ambulatory [facility] Start: 01-31-2024 End: 01-31-[address] [facility] Work Phone: Start: 01-31-2024 End: 01-31-2024 Patient encounter procedure [facility] [place] Work Phone: Start: 01-03-2024 End: 01-03-2024 Office outpatient new 60 minutes Doretha Harris MD Work Phone: [facility] Comment on above: Cervical radiculopat hy (Primary Dx); Senile osteoporosis Start: 12-13-2023 End: 12-13-2023 Office outpatient visit 40 minutes Helder Jack MD Work Phone: [facility] 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) Start: 12-13-2023 End: 12-13-2023 ambulatory HELDER JACK [facility] Start: 12-13-2023 End: 12-13-2023 Subsequent hospital visit by physician Daniel Mri 1 [facility] 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) Start: 12-13-2023 End: 12-13-2023 ambulatory [facility] Start: 12-12-2023 End: 12-12-2023 Office outpatient new 45 minutes Solomon Narayanan PA-C Work Phone: [facility] Comment on above: Cervical radiculopat hy (Primary Dx); Occipital neuralgia of left side; Balance problem Start: 12-03-2023 End: 12-03-2023 ambulatory DO Griselda Kuns Work Phone: [facility] Work Phone: Start: 12-03-2023 End: 12-03-2023 Patient encounter procedure DO Griselda Kuns Work Phone: [facility] Work Phone: Start: 11-02-2023 End: 11-02-2023 Office outpatient visit 25 minutes Racquel Cole MD Work Phone: Hematology/Oncology Comment on above: 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) Start: 10-29-2023 End: 10-29-2023 ambulatory DO Griselda Kuns Work Phone: [facility] Work Phone: Start: 10-29-2023 End: 10-29-2023 Patient encounter procedure DO Griselad Kuns Work Phone: [facility] Work Phone: Start: 10-26-2023 Non-patient / Non-visit DO Katy tt Kuns Work Phone: [facility] [employer] Work Phone: Start: 10-26-2023 End: 10-26-2023 Subsequent hospital visit by physician Arrival Time Radiology Work Phone: Radiology [facility] Comment on above: 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] Start: 10-18-2023 End: 10-18-2023 Patient encounter procedure DO Griselda Kuns Work Phone: [facility] Work Phone: Start: 10-09-2023 End: 10-09-2023 ambulatory DO Griselda Kuns Work Phone: [facility] Work Phone: Start: 10-09-2023 End: 10-09-2023 Patient encounter procedure DO Griselda Kuns Work Phone: [facility]XRay [address] [place] Work Phone: Start: 10-05-2023 End: 10-05-2023 Office outpatient new 60 minutes Helder Jack MD Work Phone: [facility] Comment on above: Brainstem lesion (Pr imary Dx); Pontine glioma (Multi) Start: 09-19-2023 End: 09-19-2023 Subsequent hospital visit by physician Rad External Film EF RAD EXTERNAL FILM VIRTUAL Comment on above: Arrived Start: 09-05-2023 End: 09-05-2023 ambulatory DO Griselda Kuns Work Phone: [facility] Work Phone: Start: 09-05-2023 End: 09-05-2023 Patient encounter procedure DO Griselda Kuns Work Phone: [facility] Work Phone: Start: 09-05-2023 End: 09-05-2023 ambulatory DO Griselda Kuns Work Phone: [facility] Work Phone: Start: 09-05-2023 End: 09-05-2023 Patient encounter procedure DO Griselda Kuns Work Phone: [facility] Work Phone: Start: 08-15-2023 End: 08-15-2023 Patient encounter procedure DO [facility]iselda Kuns [facility] [place] Work Phone: Start: 08-02-2023 End: 08-02-2023 ambulatory DO Griselda Kuns Work Phone: [facility] Work Phone: Start: 08-02-2023 End: 08-02-2023 Patient encounter procedure DO Griselda Kuns Work Phone: [facility] [place] Work Phone: Start: 07-26-2023 Chart abstracting Nikole Mota RESEARCH PROGRAM MANAGER Work Phone: [facility] [address] Start: 07-19-2023 Bamboo flowsheet Nikole Mota RESEARCH PROGRAM MANAGER Work Phone: [facility] Start: 07-19-2023 Bamboo flowsheet Nikole Mota RESEARCH PROGRAM MANAGER Work Phone: [facility] Start: 07-18-2023 End: 07-21-2023 [facility] Start: 07-02-2023 End: 07-02-2023 ambulatory Griselda Kuns Other [employer] Other Start: 07-02-2023 Office outpatient vi sit 25 minutes Griselda Kuns [facility] [place] Start: 07-02-2023 End: 07-02-2023 Patient encounter procedure DO Griselda Kuns Work Phone: [facility] [place] Work Phone: Start: 05-31-2023 End: 05-31-2023 ambulatory Griselda Kuns Other [employer] Other Start: 05-31-2023 Office outpatient vi sit 25 minutes Griselda Kuns [facility] [place] Start: 05-30-2023 Office outpatient vi sit 15 minutes Ruddy Harvey [facility] Start: 05-30-2023 End: 05-30-2023 ambulatory DO Griselda Kuns Work Phone: [facility] [employer] Other Start: 05-30-2023 End: 05-31-2023 Patient encounter procedure DO Griselda Kuns Work Phone: [facility] Start: 05-30-2023 End: 05-30-2023 Patient encounter procedure DO Griselda Kuns Work Phone: [facility] Work Phone: Start: 05-15-2023 End: 05-15-2023 ambulatory Lilliam Cason Other [facility] [employer] Other Start: 05-15-2023 Office outpatient vi sit 25 minutes Lilliam Cason [facility] Cardiology Start: 05-15-2023 Telephone encounter Lilliam Cason [employer] Start: 05-15-2023 End: 05-15-2023 Patient encounter procedure DO Griselda Kuns Work Phone: [facility] Cardiology Work Phone: Start: 05-07-2023 End: 05-07-2023 Admission to same day surgery center DO Griselda Kuns Work Phone: [facility]-Interventional Radiology Work Phone: Start: 05-07-2023 End: 05-07-2023 ambulatory DO Griselda Kuns Work Phone: [facility] Work Phone: Start: 05-04-2023 End: 05-04-2023 ambulatory DO Griselda Kuns Work Phone: [facility] Work Phone: Start: 05-04-2023 End: 05-04-2023 Patient encounter procedure DO Griselda Kuns Work Phone: [facility]-CT Scan [address] [place] Work Phone: Start: 05-03-2023 End: 05-03-2023 ambulatory Ruddy Harvey Other [employer] Other Start: 05-03-2023 Office outpatient ne w 45 minutes Ruddy Harvey [facility] Start: 05-03-2023 Telephone encounter Ruddy craft [facility] [employer] Start: 05-01-2023 End: 05-01-2023 ambulatory Griselda Kuns Other [employer] Other Start: 05-01-2023 Office outpatient vi sit 25 minutes Griseldakeith Mendezs [facility] [place] Start: 04-25-2023 End: 04-25-2023 ambulatory DO Griselda Kuns Work Phone: [facility] Work Phone: Start: 04-25-2023 End: 04-25-2023 Patient encounter procedure DO Griselda Kuns Work Phone: [facility]-Ultrasound [address] [place] Work Phone: Start: 04-12-2023 End: 04-12-2023 ambulatory Lilliam Cason Other [employer] Other Start: 04-12-2023 Telephone encounter Lilliam Cason [facility] Start: 04-11-2023 End: 04-11-2023 ambulatory Lilliam Cason Other [employer] Other Start: 04-11-2023 Office outpatient ne w 45 minutes Lilliam Cason [facility] Start: 04-10-2023 End: 04-10-2023 ambulatory Griselda Kuns Other [employer] Other Start: 04-10-2023 Telephone encounter Griseldakeith Mendezs [facility] [place] Start: 03-30-2023 End: 03-30-2023 ambulatory DO Griselda Kuns Work Phone: [facility] Work Phone: Start: 03-30-2023 End: 03-30-2023 Patient encounter procedure DO Griselda Kuns Work Phone: [facility]-Lab [address] [place] Work Phone: Start: 03-21-2023 End: 03-21-2023 Emergency department patient visit DO Griselda Kuns Work Phone: [facility]-Emergency Room Work Phone: Start: 03-15-2023 End: 03-15-2023 ambulatory Griselda Kuns Other [employer] Other Start: 03-15-2023 Office outpatient vi sit 25 minutes Griselda Kuns [facility] Start: 03-08-2023 End: 03-08-2023 ambulatory Griselda Kuns Other [employer] Other Start: 03-08-2023 Office outpatient vi sit 25 minutes Griselda Kuns [facility] Start: 02-26-2023 End: 02-26-2023 Emergency department patient visit DO Griselda Kuns Work Phone: [facility]-Emergency Room Work Phone: Start: 12-28-[address] BRET HDEZ Facil ity:UNKNOWN Start: 12-05-2022 End: 12-05-2022 ambulatory Griselda Kuns Other [employer] Other Start: 12-05-2022 Office outpatient vi sit 25 minutes Griselda Kuns [facility] Start: 11-15-2022 End: 11-15-2022 ambulatory DO Griselda Kuns Work Phone: [facility] Work Phone: Start: 11-15-2022 End: 11-15-2022 Patient encounter procedure DO Griselda Kuns Work Phone: [facility]-MRI [address] Work Phone: Start: 10-27-2022 End: 10-27-2022 Subsequent hospital visit by physician Arrival Time Radiology Work Phone: Radiology [facility] Comment on above: Malignant neoplasm o f head, 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] Start: 10-24-2022 End: 10-24-2022 ambulatory DO Griselda Kuns Work Phone: [facility] Work Phone: Start: 10-24-2022 End: 10-24-2022 Patient encounter procedure DO Griselda Kuns Work Phone: [facility]-Lab [place] Work Phone: Start: 09-28-2022 End: 09-28-2022 [facility] Start: 09-22-2022 End: 09-22-2022 Subsequent hospital visit by physician Mri Navina (I-Stat/3t) Work Phone: Radiology Comment on above: 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] Start: 09-18-2022 Telephone encounter Kelly ghosh PA-C Work Phone: [facility] [place] Comment on above: Patient Question Start: 09-13-2022 End: 09-13-2022 Patient encounter procedure Kelly Perez PA-C Work Phone: [facility] Tumor [place] Comment on above: NPH (normal pressure hydrocephalus) (HCC) (Primary Dx) Start: 08-31-2022 End: 08-31-2022 ambulatory Griselda Kuns Other [employer] Other Start: 08-31-2022 Office outpatient vi sit 25 minutes Griseldakeith Hastings [facility] [place] Start: 08-01-2022 End: 08-01-2022 ambulatory Griselda Kuns Other [employer] Other Start: 08-01-2022 Office outpatient vi sit 25 minutes Griselda Kuns [facility] Start: 07-17-2022 End: 07-17-2022 ambulatory DO Griselda Kuns Work Phone: [facility] Work Phone: Start: 07-17-2022 End: 07-17-2022 Patient encounter procedure DO Griselda Kuns Work Phone: [facility]-XRay [address] [place] Work Phone: Start: 07-14-2022 End: 07-14-2022 Patient encounter procedure DO Griselda Kuns Work Phone: [facility]-CT Scan [address] [place] Work Phone: Start: 06-28-2022 End: 06-28-2022 ambulatory Trish Blades Other [employer] Other Start: 06-28-2022 Office outpatient ne w 45 minutes Trish Blades [facility] Neurosurgery Start: 05-26-2022 End: 05-26-2022 ambulatory Griselda Kuns Other [employer] Other Start: 05-26-2022 Office outpatient vi sit 25 minutes Griselda Kuns [facility] Start: 05-17-2022 End: 05-17-2022 ambulatory DO Griselda Kuns Work Phone: [facility] Work Phone: Start: 05-17-2022 End: 05-17-2022 Discharged Recurring DO Griselda Kuns Work Phone: [facility]-Physical Therapy [address] Start: 04-27-2022 Registered Recurring DO Griselda Kuns Work Phone: [facility]-Physical Therapy [address] Start: 04-16-2022 End: 04-17-2022 Emergency department patient visit DO Griselda Kuns Work Phone: [facility]-Emergency Room Start: 04-10-2022 End: 04-10-2022 ambulatory Griselda Kuns Other [employer] Other Start: 04-10-2022 Telephone encounter Griselda Kuns [facility] [place] Start: 04-06-2022 End: 04-06-2022 Emergency department patient visit DO Griselda Kuns Work Phone: [facility]-Emergency Room Start: 03-27-2022 Telephone encounter Asya Reynolds RN Hematology/Oncology Comment on above: Appointment Start: 03-22-2022 End: 03-22-2022 ambulatory Griselda Kuns Other [employer] Other Start: 03-22-2022 Telephone encounter Griselda Kuns [facility] [place] Start: 03-16-2022 End: 03-16-2022 ambulatory Griselda Kuns Other [employer] Other Start: 03-16-2022 Office outpatient vi sit 25 minutes Griselda Kuns [facility] [place] Start: 03-16-2022 Telephone encounter Self [facility] [place] Comment on above: Triage (Internal Ref erral--old) Start: 03-09-2022 End: 03-09-2022 ambulatory Griselda Kuns Other [employer] Other Start: 03-09-2022 Telephone encounter Griselda Kuns [facility] [place] Start: 03-07-2022 End: 03-07-2022 ambulatory Griselda Kuns Other [employer] Other Start: 03-07-2022 Telephone encounter Griselda Kuns [facility] [place] Start: 03-03-2022 Telephone encounter Griselda Kuns [facility] [place] Start: 03-03-2022 End: 03-03-2022 ambulatory DO Griselda Kuns Work Phone: [employer] Other Start: 03-03-2022 End: 03-03-2022 Discharged Recurring DO Griselda Kuns Work Phone: [facility]-Physical Therapy [address] Start: 03-03-2022 Registered Recurring DO Griselda Kuns Work Phone: [facility]-Physical Therapy [address] Start: 02-07-2022 End: 02-07-2022 ambulatory Griselda Kuns Other [employer] Other Start: 02-07-2022 [facility] Start: 01-30-2022 End: 01-30-2022 ambulatory Griselda Kuns Other [employer] Other Start: 01-30-2022 Office outpatient vi sit 25 minutes Griselda Kuns [facility] [place] Start: 01-12-2022 End: 01-12-2022 ambulatory Griselda Kuns Other [employer] Other Start: 01-12-2022 Telephone encounter Griselda Kuns [facility] [place] Start: 12-26-2021 End: 12-26-2021 ambulatory Griselda Kuns Other [employer] Other Start: 12-26-2021 Office outpatient vi sit 25 minutes Griselda Kuns [facility] [place] Start: 12-23-2021 End: 12-23-2021 ambulatory Griselda Kuns Other [employer] Other Start: 12-23-2021 Telephone encounter Griselda Kuns [facility] [place] Start: 12-05-2021 End: 12-05-2021 ambulatory Griselda Kuns Other [employer] Other Start: 12-05-2021 Office outpatient vi sit 25 minutes [facility] Start: 12-05-2021 Telephone encounter [facility] Start: 11-22-2021 End: 11-22-2021 ambulatory Griselda Kuns Other [employer] Other Start: 11-22-2021 Telephone encounter [facility] Start: 11-21-2021 Office outpatient vi sit 15 minutes Griselda R Kuns Work Phone: [facility] Work Phone: Start: 11-09-2021 End: 11-09-2021 ambulatory Griselda Kuns Other [employer] Other Start: 11-09-2021 Telephone encounter Griselda Kuns [facility] Start: 11-08-2021 End: 11-08-2021 ambulatory Griselda Kuns Other [employer] Other Start: 11-08-2021 Office outpatient vi sit 25 minutes Griselda Kuns [facility] Start: 11-03-2021 Office consultation new/estab patient 60 min Griselda R Kuns Work Phone: [facility] Work Phone: Start: 11-01-2021 End: 11-01-2021 ambulatory Griselda Kuns Other [employer] Other Start: 11-01-2021 Office outpatient vi sit 25 minutes Griselda Kuns [facility] Start: 10-31-2021 End: 10-31-2021 ambulatory Sheng Schneider Other [employer] Other Start: 10-31-2021 Telephone encounter Sheng Clark [facility] Neurosurgery Start: 10-27-2021 End: 10-27-2021 ambulatory Racquel Cole MD Work Phone: Hematology/Oncology Comment on above: 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); Lung nodules; Malignant neoplasm of head, face and neck (HCC) Start: 10-27-2021 End: 10-27-2021 Telemedicine consultation with patient Racquel Cole MD Work Phone: [employer] Start: 10-24-2021 End: 10-24-2021 ambulatory Sheng Schneider Other [facility] [employer] Other Start: 10-24-2021 Office outpatient ne w 30 minutes Sheng Schneider [facility] Neurosurgery Start: 10-13-2021 Telephone encounter Racquel kapoor MD Work Phone: [facility] Comment on above: Referral Information (Neurosurgery) Start: 10-13-2021 End: 10-13-2021 ambulatory Racquel Cole MD Work Phone: Hematology/Oncology Comment on above: Glioma of brain (HCC ) (Primary Dx); Lung nodules; 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) Start: 10-13-2021 End: 10-13-2021 Patient encounter procedure Racquel Cole MD Work Phone: [employer] Start: 10-06-2021 End: 10-06-2021 ambulatory Griselda Hastings Other [employer] Other Start: 10-06-2021 Telephone encounter Asya Kumar RN Hematology/Oncology Comment on above: Results Start: 10-06-2021 End: 10-06-2021 Subsequent hospital visit by physician Arrival Time Radiology Work Phone: Radiology [facility] Comment on above: Malignant neoplasm o f head, 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] Start: 09-29-2021 End: 09-29-2021 ambulatory Griselda Kuns Other [employer] Other Start: 09-29-2021 Telephone encounter Griselda Kuns [facility] [place] [facility] Start: 09-27-2021 End: 09-27-2021 ambulatory Griselda Kuns Other [employer] Other Start: 09-27-2021 Telephone encounter Griselda Kuns [facility] Start: 09-19-2021 End: 09-19-2021 ambulatory Griselda Kuns Other [employer] Other Start: 09-19-2021 Office outpatient vi sit 25 minutes Griselda Kuns [facility] Start: 09-12-2021 End: 09-12-2021 ambulatory Griselda Kuns Other [employer] Other Start: 09-12-2021 Telephone encounter [facility] Start: 09-08-2021 End: 09-08-2021 ambulatory Griselda Kuns Other [employer] Other Start: 09-08-2021 Telephone encounter [facility] Start: 06-30-2021 End: 06-30-2021 ambulatory Griselda Kuns Other [employer] Other Start: 06-30-2021 Office outpatient vi sit 15 minutes Griselda Kuns [facility] [place] Start: 06-30-2021 Telephone encounter Griselda Kuns [facility] [place] Start: 06-29-2021 End: 06-29-2021 ambulatory Griselda Kuns Other [employer] Other Start: 06-29-2021 Nursing evaluation o f patient and report Griselda Kuns [facility] [place] Start: 04-19-2021 End: 04-19-2021 ambulatory Griselda Hastings Other [facility] [employer] Other Start: 04-19-2021 Nursing evaluation o f patient and report Griselda Hastings [facility] Start: 04-19-2021 Telephone encounter Griselda Hastings [facility] Start: 04-14-2021 Office outpatient vi sit 15 minutes Griseldakeith Hastings [facility] Start: 10-01-2020 End: 10-01-2020 Patient encounter procedure Griselda Hastings Work Phone: -Electrodiagnostics Start: 09-20-2020 End: 09-20-2020 Patient encounter procedure Griseldakeith Hastings -Lab [facility] Start: 09-13-2020 End: 09-13-2020 Patient encounter procedure Griseldakeith Hastings -XRay [facility] Procedures Date Procedure Procedure Detail Performing Clinician Start: 01-08-2025 End: 01-08-2025 CRYOTHERAPY SKIN LESION Anahi Sandersyola Soni Work Phone: Start: 2024 Plain chest X-ray Griselda Hastings DO Work Phone: Start: 11-19-2024 Quick Strep (POC) Griselda Hastings DO Work Phone: Start: 11-19-2024 RSV (POC) Griselda Hastings DO Work Phone: Start: 11-05-2024 Esophagogastroduodenoscopy Griseldakeith Mendezroge DO Work Phone: Start: 11-03-2024 Ct soft tissue neck w/contrast material Racquel Cole MD Work Phone: Start: 11-03-2024 Ct thorax w/contrast material Racquel kapoor MD Work Phone: Start: 11-03-2024 Blood count complete auto&auto difrntl wbc Elizabeth Hagan PA-C Work Phone: Start: 10-21-2024 Study Interpretation of outside study Doretha Harris MD Work Phone: Start: 10-10-2024 X-ray of cervical spine Griselda Kuns DO Work Phone: Start: 10-06-2024 Computed tomography of abdomen and pelvis with contrast Griselda Kuns DO Work Phone: Start: 10-06-2024 CT of soft tissues of neck with contrast Griselda Kuns DO Work Phone: Start: 09-20-2024 Respiratory Panel (PCR) Griselda Kuns DO Work Phone: Start: 09-20-2024 Plain chest X-ray Griselda Kuns DO Work Phone: Start: 09-11-2024 Ankle brachial pressure index Griselda Kuns DO Work Phone: Start: 06-24-2024 X-ray of cervical spine Griselda Kuns DO Work Phone: Start: 04-10-2024 Basic metabolic panel calcium total Chicho Bryan MD Work Phone: Start: 04-10-2024 Radex spine cervical 2 or 3 views Aleyda Alvarez MD Work Phone: Start: 04-09-2024 PULSE OXIMETRY, CONTINUOUS Fred flores MD Work Phone: Start: 04-09-2024 XR tomography Unspecified body region Doretha Harris MD Work Phone: Start: 04-09-2024 Chloride bld Shelly M Capp CAA Work Phone: Start: 04-09-2024 End: 04-09-2024 Arthrd ant interbody decompress cervical belw c2 Doretha Harris MD Work Phone: Start: 04-09-2024 Blood typing serologic rh (d) Doretha meza MD Work Phone: Start: 03-31-2024 Study Interpretation of outside study Doretha Harris MD Work Phone: Start: 02-13-2024 Dxa bone density study 1/> sites axial skel Doretha Harris MD Work Phone: Start: 02-12-2024 Ecg routine ecg w/least 12 lds trcg only w/o i&r Doretha Harris MD Work Phone: Start: 12-13-2023 Mri brain brain stem w/o w/contrast material Shimon Heaton PA-C Work Phone: Start: 10-26-2023 Ct soft tissue neck w/contrast material Racquel Cole MD Work Phone: Start: 10-26-2023 Ct thorax w/contrast material Racquel kapoor MD Work Phone: Start: 10-26-2023 Blood count complete auto&auto difrntl wbc Racquel Cole MD Work Phone: Start: 10-09-2023 Respiratory Panel (PCR) DO Griselda XMLAWroge Work Phone: Start: 10-09-2023 Plain chest X-ray DO [employer] Work Phone: Start: 09-19-2023 Study Interpretation of outside study Ayah Gross MD Work Phone: Start: 09-05-2023 Ankle brachial pressure index DO Griseldakeith cavanaugh Work Phone: Start: 05-07-2023 Lower limb angiography DO Griselda XMLAWroge Work Phone: Start: 05-04-2023 CT angiography of head DO [employer] Work Phone: Start: 05-04-2023 CT angiography of neck vessels DO [employer] Work Phone: Start: 04-25-2023 Pulse volume recorder pneumoplethysmography DO [employer] Work Phone: Start: 02-26-2023 SARS Antigen (LFIA) DO [employer] Work Phone: Start: 11-15-2022 MR lumbar spine wo con DO Griselda Hastings Work Phone: Start: 11-15-2022 XR pre/post mri xray DO Griselda Hastings Work Phone: Start: 10-27-2022 Ct thorax w/contrast material Racquel kapoor MD Work Phone: Start: 10-27-2022 Ct soft tissue neck w/contrast material Racquel Cole MD Work Phone: Start: 10-27-2022 Blood count complete auto&auto difrntl wbc Racquel Cole MD Work Phone: Start: 09-22-2022 Mri brain brain stem w/o w/contrast material Kelly Perez PA-C Work Phone: Start: 07-14-2022 CT of head without contrast DO Griselda meneses Work Phone: Start: 04-16-2022 Plain chest X-ray DO Griselda Hastings Work Phone: Start: 04-06-2022 CT cervical spine without contrast DO Don Hastings Work Phone: Start: 10-13-2021 Adult depression screening assessment Racquel Cole MD Work Phone: Start: 10-06-2021 Ct soft tissue neck w/contrast material Racquel Cole MD Work Phone: Start: 10-06-2021 Ct thorax w/contrast material Racquel kapoor MD Work Phone: Start: 10-06-2021 Blood count complete auto&auto difrntl wbc Racquel Cole MD Work Phone: Start: 10-14-2020 Adult depression screening assessment Asya Kumar RN Start: 09-13-2020 Plain chest X-ray Griseldakeith Mendezs Excision of melanoma Griselda Hastings Work Phone: Plan of Treatment Date Care Activity Detail Author Start: 2037 RSV Vaccine (1 - 1-dose 75+ series) RSV Vaccine (1 - 1-dose 75+ series) [facility] Start: 04-10-2027 Diabetes Screening Diabetes Screening [facility] Start: 10-25-2026 Diabetes Screening Diabetes Screening [facility] Start: 02-12-2026 Screening for osteoporosis Bone Density Scan [facility] Start: 01-08-2026 End: 01-08-2026 Patient encounter procedure [facility] Start: 04-06-2025 End: 04-06-2025 Patient encounter procedure 04/06/2025 9:30 AM EDT Office Visit [facility] [address] [facility] [address] [place] [phone] Dorteha Harris MD [address] [place], [place] [phone] [facility] Start: 02-16-2025 Influenza vaccination [facility] Start: 02-04-2025 End: 02-04-2025 Clinical Support [facility] Comment on above: Arrived Start: 01-08-2025 End: 01-08-2025 Patient encounter procedure [facility] Comment on above: Arrived Start: 01-01-2025 End: 01-01-2025 Patient encounter procedure 01/01/2025 10:30 AM EDT Office Visit [facility] [address] [place] [phone] Anahi Franco PA [address] [place] [address] [facility] Start: 12-24-2024 End: 12-24-2024 Clinical Support [facility] Comment on above: Arrived Start: 11-12-2024 End: 11-12-2024 Clinical Support [facility] Comment on above: Arrived Start: 11-07-2024 End: 11-07-2024 Follow-up encounter Hematology/Oncolog y Comment on above: [address] and lab Start: 11-05-2024 [facility] Start: 11-03-2024 End: 02-02-2025 Comprehensive metabolic 2000 panel - Serum or Plasma COMPREHENSIVE METABOLIC PANEL Lab Routine 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) Expected: 11/03/2024 (Approximate), Expires: 02/02/2025 [facility] Work Phone: Comment on above: Expected: 11/03/2024 (Approximate), Expi res: 02/02/2025 Start: 11-03-2024 End: 11-03-2024 Patient encounter procedure 11/03/2024 9:00 AM EDT Appointment Radiology [facility] CT [address] [place] [address] [place] [address] Ct Chest and neck with contrast and lab [facility]iology [facility] CT Comment on above: Ct Chest and neck with contrast and lab Start: 11-01-2024 End: 11-01-2024 CBC W Auto Differential panel - Blood COMPLETE BLOOD COUNT AND DIFFERENTIAL Lab Routine 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) Expected: 11/01/2024 (Approximate), Expires: 11/01/2024 [facility] Comment on above: Expected: 11/01/2024 (Approximate), Expi res: 11/01/2024 Start: 11-01-2024 End: 11-01-2024 Comprehensive metabolic 2000 panel - Serum or Plasma COMPREHENSIVE METABOLIC PANEL Lab Routine 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) Expected: 11/01/2024 (Approximate), Expires: 11/01/2024 [facility] Comment on above: Expected: 11/01/2024 (Approximate), Expi res: 11/01/2024 Start: 11-01-2024 End: 12-01-2024 CT Chest W contrast IV CT CHEST W IVCON Radiology Routine 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) Expected: 11/01/2024 (Approximate), Expires: 12/01/2024 [facility] Comment on above: Expected: 11/01/2024 (Approximate), Expi res: 12/01/2024 Start: 11-01-2024 End: 12-01-2024 CT Neck W contrast IV CT NECK SOFT TISSUE W IVCON Radiology Routine 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) Expected: 11/01/2024 (Approximate), Expires: 12/01/2024 [facility] Work Phone: Comment on above: Expected: 11/01/2024 (Approximate), Expi res: 12/01/2024 Start: 10-10-2024 X-ray of cervical spine XR cervical spine 2V [facility] Start: 10-10-2024 XR Cervical spine 2 Views [facility] Start: 10-06-2024 DIABETES SCREEN DIABETES SCREEN [facility] Start: 09-29-2024 End: 09-29-2024 Patient encounter procedure 09/29/2024 11:00 AM EDT Office Visit [facility] [address] [facility] [address] [place] [phone] Doretha Harris MD [address] [facility] [place] [address] [facility] Start: 09-11-2024 End: 09-11-2024 Clinical Support 09/11/2024 10:40 AM EDT Clinical Support [facility] [address] [place] [address] Oziel Cadena MD [address] [facility] [address] [place], [place] [phone] [facility] Start: 09-11-2024 Ankle brachial pressure index US ankle/arm indices [facility] Start: 07-31-2024 End: 07-31-2024 Clinical Support [facility] Comment on above: Arrived Start: 07-02-2024 End: 07-02-2024 Clinical Support [facility] Comment on above: Arrived Start: 06-30-2024 End: 06-30-2025 XR Cervical spine 2 or 3 Views XR cervical spine 2-3 views Imaging Routine Status post cervical spinal fusion Expected: 06/30/2024, Expires: 06/30/2025 [facility] Service Area Work Phone: Comment on above: Expected: 06/30/2024, Expires: Start: 06-30-2024 End: 06-30-2024 Patient encounter procedure [facility] Start: 05-21-2024 End: 05-21-2024 Clinical Support 05/21/2024 2:00 PM EST Clinical Support [facility] [address] [place] [address] Oziel Cadena MD [address] [facility] [address] [place] [address] Arrived [facility] Comment on above: Arrived Start: 05-16-2024 End: 05-16-2024 Patient encounter procedure 05/16/2024 9:15 AM EST Office Visit [facility] [address] [facility] [address] [place] [address] Doretha Harris MD [address] [facility], [address] [place], [place] [phone] [facility] Start: 05-02-2024 End: 05-02-2024 Patient encounter procedure [facility] Start: 04-30-2024 End: 04-30-2025 XR Cervical spine 2 or 3 Views XR cervical spine 2-3 views Imaging Routine Cervical radiculopathy Status post cervical spinal fusion Expected: 04/30/2024, Expires: 04/30/2025 [facility] Service Area Work Phone: Comment on above: Expected: 04/30/2024, Expires: Start: 04-30-2024 End: 04-30-2024 Patient encounter procedure 04/30/2024 1:00 PM EST Office Visit [place] [address] [facility] [address] [place] [address] Solomon Narayanan PA-C [address] [place], [place] [phone] [facility] Start: 04-09-2024 End: 04-09-2024 Admission to same day surgery center 04/09/2024 7:45 AM EDT - 04/09/2024 12:25 PM EDT [place] [address] [place] [address] Doretha Harris MD [address] [facility], [address] [place] [address] Fusion Spine Anterior Cervical and Discectomy C5-6, C6-7 [36707 (CPT )] [facility] [place] Comment on above: Fusion Spine Anterior Cervical and Disce ctomy C5-6, C6-7 [36661 (CPT )] Start: 04-09-2024 End: 04-09-2024 Arthrd ant interbody decompress cervical belw c2 Fusion Spine Anterior Cervical and Discectomy Cervical radiculopathy Senile osteoporosis 04/09/2024 7:45 AM EDT Virtual [facility] [place] Start: 04-09-2024 Subsequent hospital visit by physician 04/09/2024 7:45 AM EDT Hospital Encounter [facility] [address] [address] [place] [address] Doretha Harris MD [address] [facility], [address] [place] [address] [facility] [place] Start: 03-15-2024 DTaP/Tdap/Td Vaccines (2 - Td or Tdap) DTaP/Tdap/Td Vaccines (2 - Td or Tdap) [facility] Start: 03-15-2024 Urine microalbumin profile DTaP,Tdap,Td Vaccine (2 - Td or Tdap) [facility] Start: 03-11-2024 End: 03-11-2024 Patient encounter procedure 03/11/2024 11:30 AM EDT Office Visit [place] [address] [facility] [address] [place] [address] Solomon Narayanan PA-C [address] [place] [address] [facility] Start: 03-03-2024 Influenza vaccination Influenza Vaccine (#1) [facility] Comment on above: Postponed from 02/16/2023 (Patient Refus ed) Start: 02-27-2024 End: 02-27-2024 Admission to same day surgery center [facility] [place] Comment on above: Anterior Cervical Discectomy and Fusion C5-6, C6-7 [04702 (CPT )] Start: 02-27-2024 End: 02-27-2024 Arthrd ant interbody decompress cervical belw c2 [facility] [place] Start: 02-27-2024 Subsequent hospital visit by physician [facility] [place] Start: 02-17-2024 COVID-19 Vaccine ( season) COVID-19 Vaccine ( season) [facility] Start: 02-17-2024 Covid-19 Vaccine ( season) Covid-19 Vaccine ( season) [facility] Start: 02-17-2024 Covid-19 Vaccine ( season) Covid-19 Vaccine ( season) [facility] Start: 02-17-2024 Influenza vaccination [facility] Start: 02-15-2024 End: 02-15-2024 Patient encounter procedure 02/15/2024 9:00 AM EDT Office Visit [address] [address] Vincenzo Sanchez MD [address] [place] [address] Dr [address], [address] [address] [facility] Start: 02-13-2024 End: 02-13-2024 Patient encounter procedure 02/13/2024 11:00 AM EDT Appointment [place] [address] [place] [address] [facility] Start: 02-03-2024 End: 01-02-2025 Nicotine and Metabolites,S Nicotine and Metabolites,S Lab Routine Cervical radiculopathy Senile osteoporosis Expected: 02/03/2024 (Approximate), Expires: 01/02/2025 [facility] Work Phone: Comment on above: Expected: 02/03/2024 (Approximate), Expi res: 01/02/2025 Start: 01-03-2024 End: 01-02-2025 DXA Skeletal system.axial Views for bone density XR DEXA bone density axial skeleton w VFA Imaging Routine Senile osteoporosis Expected: 01/03/2024, Expires: 01/02/2025 [facility] Service Area Work Phone: Comment on above: Expected: 01/03/2024, Expires: Start: 01-03-2024 End: 01-02-2025 XR Cervical spine 6 Views XR cervical spine complete 6+ views Imaging Routine Cervical radiculopathy Expected: 01/03/2024, Expires: 01/02/2025 [facility] Work Phone: Comment on above: Expected: 01/03/2024, Expires: Start: 01-03-2024 End: 01-03-2024 Patient encounter procedure 01/03/2024 1:30 PM EDT Office Visit [facility] [address] [address] Doretha Harris MD [address] [facility], [address] [phone] [facility] Start: 12-13-2023 End: 12-12-2024 MR Brain WO and W contrast IV MR brain w and wo IV contrast Imaging Routine Pontine glioma (Multi) Expected: 12/13/2023 (Approximate), Expires: 12/12/2024 [facility] Work Phone: Comment on above: Expected: 12/13/2023 (Approximate), Expi res: 12/12/2024 Start: 12-13-2023 End: 12-13-2023 Patient encounter procedure [facility] Start: 09-28-2023 End: 09-28-2023 Patient encounter procedure 09/28/2023 10:15 AM EDT Office Visit [facility] [address] [place] [address] [place] [address] Department [place] [address] [facility] Start: 09-05-2023 Ankle brachial pressure index [facility] Start: 08-30-2023 End: 08-30-2023 Patient encounter procedure 08/30/2023 9:40 AM EDT Office Visit [facility] [address] [facility] [address] [place] [phone] Nikole Mota RESEARCH PROGRAM MANAGER [address] [place] [address] [facility] Start: 07-26-2023 End: 07-26-2023 Patient encounter procedure 07/26/2023 1:30 PM EST Procedure Visit [facility] [address] [facility] [facility] [address] [place] [address], [place] [address] Nikole Mota RESEARCH PROGRAM MANAGER [address] [place] [address], [place] [address] [facility] 210 Start: 07-19-2023 End: 07-19-2023 Clinical Support 07/19/2023 1:30 PM EST Clinical Support [facility] [address] [place] [address] Nikole Mota RESEARCH PROGRAM MANAGER [address] [place] [address], [place] [address] Cervical dystonia [facility] Comment on above: Cervical dystonia Start: 06-18-2023 Behavioral Health Screening Behavioral Health Screening [facility] Start: 05-07-2023 Pulse volume recorder pneumoplethysmography US arterial pvr rest [facility] Start: 05-07-2023 [facility] Start: 05-07-2023 [facility] Start: 04-25-2023 Pulse volume recorder pneumoplethysmography US arterial pvr rest [facility] Start: 02-16-2023 COVID-19 Vaccine ( season) COVID-19 Vaccine () [facility] Start: 02-16-2023 Influenza vaccination INFLUENZA (Season Ended) [facility] Start: 2022 RSV High Risk: (Elderly (60+) or Population) (1 - Risk 60-74 years 1-dose series) RSV High Risk: (Elderly (60+) or Population) (1 - Risk 60-74 years 1-dose series) [facility] Start: 2022 RSV patients and/or patients aged 60+ years (1 - 1-dose 60+ series) RSV patients and/or patients aged 60+ years (1 - 1-dose 60+ series) [facility] Start: 2022 RSV Vaccine (1 - 1-dose 60+ series) RSV Vaccine (1 - 1-dose 60+ series) [facility] Start: 10-30-2022 End: 10-30-2022 CBC W Auto Differential panel - Blood CBC + DIFF Lab Routine 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) Lung nodules Malignant neoplasm of head, face and neck (HCC) Expected: 10/30/2022 (Approximate), Expires: 10/30/2022 [facility] Work Phone: Comment on above: Expected: 10/30/2022 (Approximate), Expi res: 10/30/2022 Start: 10-30-2022 End: 10-30-2022 Comprehensive metabolic 2000 panel - Serum or Plasma COMP METABOLIC PANEL Lab Routine 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) Lung nodules Malignant neoplasm of head, face and neck (HCC) Expected: 10/30/2022 (Approximate), Expires: 10/30/2022 [facility] Work Phone: Comment on above: Expected: 10/30/2022 (Approximate), Expi res: 10/30/2022 Start: 10-30-2022 End: 11-29-2022 Ct soft tissue neck w/contrast material CT NECK SOFT TISSUE W IVCON Radiology Routine Malignant neoplasm of head, face and neck (HCC) Expected: 10/30/2022 (Approximate), Expires: 11/29/2022 [facility] Work Phone: Comment on above: Expected: 10/30/2022 (Approximate), Expi res: 11/29/2022 Start: 10-30-2022 End: 11-29-2022 Ct thorax w/contrast material CT CHEST W IVCON Radiology Routine Lung nodules Expected: 10/30/2022 (Approximate), Expires: 11/29/2022 [facility] Work Phone: Comment on above: Expected: 10/30/2022 (Approximate), Expi res: 11/29/2022 Start: 10-13-2022 Adult depression screening assessment DEPRESSION SCREENING [facility] Start: 07-17-2022 Aerobic Culture Aerobic Culture [facility] Start: 07-17-2022 Anaerobic Culture Anaerobic Culture [facility] Start: 07-17-2022 Microscopic observation [Identifier] in Unspecified specimen by Gram stain [facility] Start: 07-17-2022 Cerebrospinal fluid culture [facility] Start: 07-17-2022 End: 07-17-2022 [facility] Start: 07-17-2022 [facility] Start: 06-18-2022 DEPRESSION ASSESSMENT DEPRESSION ASSESSMENT [facility] Start: 04-16-2022 Plain chest X-ray XR ribs LT min 3V w [id number]* [facility] Start: 04-16-2022 XR Unspecified body region Views [facility] Start: 02-16-2022 Influenza vaccination [facility] Start: 10-14-2021 Adult depression screening assessment DEPRESSION SCREENING [facility] Start: 06-23-2021 COVID-19 VACCINE (3 - Booster for Pfizer series) COVID-19 VACCINE (3 - Booster for Pfizer series) [facility] Start: 06-18-2021 DEPRESSION ASSESSMENT DEPRESSION ASSESSMENT [facility] Start: 10-01-2021 COVID-19 VACCINE (3 - Booster for Pfizer series) COVID-19 VACCINE (3 - Booster for Pfizer series) [facility] Start: 2017 PROSTATE CANCER SCREENING DISCUSSION PROSTATE CANCER SCREENING DISCUSSION [facility] Start: 2017 Prostate specific antigen measurement Prostate Cancer Screening Discussion [facility] Start: 2012 Pneumococcal Vaccine: 50+ (1 of 1 - PCV) Pneumococcal Vaccine: 50+ (1 of 1 - PCV) [facility] Start: 2012 Screening for malignant neoplasm of lung Lung Cancer Screening [facility] Start: 2012 SHINGRIX VACCINE (1 of 2) SHINGRIX VACCINE (1 of 2) [facility] Start: 2012 Zoster Vaccines (1 of 2) Zoster Vaccines (1 of 2) [facility] Start: 11-25-2007 COLOGUARD (FIT-DNA) COLOGUARD (FIT-DNA) [facility] Start: 11-25-2007 Colonoscopy COLONOSCOPY [facility] Start: 11-25-2007 COLORECTAL CANCER SCREENING COLORECTAL CANCER SCREENING [facility] Start: 11-25-[address] COLONOGRAPHY [facility] Start: 11-25-2007 FECAL OCCULT BLOOD FECAL OCCULT BLOOD [facility] Start: 11-25-2007 Prostate specific antigen measurement Prostate Cancer Screening Discussion [facility] Start: 11-25-2007 Screening for malignant neoplasm of colon [facility] Start: 11-25-2007 SIGMOIDOSCOPY SIGMOIDOSCOPY [facility] Start: 1997 Lipid panel Lipid Screening [facility] Start: 1997 LIPID SCREEN LIPID SCREEN [facility] Start: 1981 Hepatitis A Vaccines (1 of 2 - Risk 2-dose series) Hepatitis A Vaccines (1 of 2 - Risk 2-dose series) [facility] Start: 1981 Pneumococcal vaccination Pneumococcal Vaccine (1 of 2 - PCV) [facility] Start: 1981 Urine microalbumin profile DTAP,TDAP,TD (1 - Tdap) [facility] Start: 1980 Anxiety Screening Anxiety Screening [facility] Start: 1980 Depression Screening Depression Screening [facility] Start: 1980 Diabetes mellitus screening Diabetes Screening [facility] Start: 1980 HEPATITIS C SCREENING HEPATITIS C SCREENING [facility] Start: 1980 Hepatitis C screening Hepatitis C Screening [facility] Start: 1980 HIV SCREENING HIV SCREENING [facility] Start: 1980 HIV screening HIV Screening [facility] Start: 1968 Pneumococcal Vaccine: Pediatrics (0 to 5 Years) and At-Risk Patients (6 to 64 Years) (1 of 2 - PCV) Pneumococcal Vaccine: Pediatrics (0 to 5 Years) and At-Risk Patients (6 to 64 Years) (1 of 2 - PCV) [facility] Start: 11-25-1963 MMR Vaccines (1 of 1 - Standard series) MMR Vaccines (1 of 1 - Standard series) [facility] Start: 1962 Annual wellness visit Welcome to Medicare Visit [facility] Start: 1962 HIV screening HIV Screening [facility] Start: 1962 Lipid panel Lipid Panel [facility] Start: 1962 Screening for malignant neoplasm of colon [facility] Start: 1962 Screening for osteoporosis Bone Density Scan [facility] Start: 1962 Yearly Adult Physical Yearly Adult Physical [facility] Ankle brachial pressure index [facility] Bacteria identified in Cerebral spinal fluid by Culture CSF CULT + STAIN Microbiology Routine NPH (normal pressure hydrocephalus) (HCC) Ordered: 09/13/2022 [facility] Work Phone: Comment on above: Ordered: 09/13/2022 Bacteria identified in Unspecified specimen by Aerobe culture [facility] Bacteria identified in Unspecified specimen by Anaerobe culture [facility] End: 04-12-2024 Basic metabolic 2000 panel - Serum or Plasma Basic metabolic panel Lab Routine Morning draw (Lab) for 3 Occurrences starting 04/10/2024 until 04/12/2024, 1 completed [facility] Work Phone: Comment on above: Morning draw (Lab) for 3 Occurrences sta rting 04/10/2024 until 04/12/2024, 1 completed End: 04-12-2024 CBC panel - Blood by Automated count CBC Lab Routine Morning draw (Lab) for 3 Occurrences starting 04/10/2024 until 04/12/2024, 1 completed [facility] Work Phone: Comment on above: Morning draw (Lab) for 3 Occurrences sta rting 04/10/2024 until 04/12/2024, 1 completed Cell count panel - C erebral spinal fluid CSF CELL COUNT Lab Routine NPH (normal pressure hydrocephalus) ([facility]) Ordered: 09/13/2022 [facility] Work Phone: Comment on above: Ordered: 09/13/2022 Cell count, cerebros roberto fluid [facility] Comprehensive metabo lic 2000 panel - Serum or Plasma [facility] End: 04-09-2024 Continuous Pulse oximetry, In Phase 1 Continuous Pulse oximetry, In Phase 1 Respiratory Care Routine Continuous until discontinued starting 04/09/2024 [facility] Service Area Work Phone: Comment on above: Continuous until discontinued starting 1 Enolase.neuron speci fic [Mass/volume] in Serum or Plasma by Immunoassay [facility] Fungus identified in Unspecified specimen by Culture [facility] Glucose [Mass/volume ] in Cerebral spinal fluid [facility] Glucose [Mass/volume ] in Serum or Plasma POCT Glucose Point of Care Testing - Docked Device Routine As needed (Lab) until discontinued starting 04/09/2024 [facility] Service Area Work Phone: Comment on above: As needed (Lab) until discontinued start ing 04/09/2024 End: 04-09-2024 Incentive spirometry Instruct Incentive spirometry Instruct Respiratory Care Routine Once for 1 Occurrences starting 04/09/2024 until 04/09/2024 [facility] Work Phone: Comment on above: Once for 1 Occurrences starting 04/09/20 until 04/09/2024 IR LP FOR DRAINAGE (PRESSURE) IR LP FOR DRAINAGE (PRESSURE) Radiology Routine NPH (normal pressure hydrocephalus) ([facility]) Ordered: 09/13/2022 [facility] Work Phone: Comment on above: Ordered: 09/13/2022 Meningitis+Encephali tis pathogens DNA and RNA panel - Cerebral spinal fluid by JER with non-probe detection [facility] End: 10-20-2023 Mri brain brain stem w/o w/contrast material MRI BRAIN WO/W IVCON Radiology Routine 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HCC) 1 Occurrences starting 09/20/2022 until 10/20/2023 [facility] Work Phone: Comment on above: 1 Occurrences starting 09/20/2022 until 10/20/2023 Patient Education [facility] Work Phone: Patient referral [facility] Work Phone: Protein [Mass/volume ] in Cerebral spinal fluid [facility] End: 04-09-2024 Urethral Catheter Removal Urethral Catheter Removal Procedures Routine Once for 1 Occurrences starting 04/09/2024 until 04/09/2024 [facility] Work Phone: Comment on above: Once for 1 Occurrences starting 04/09/20 until 04/09/2024 Virus identified in Unspecified specimen by Culture [facility] End: 02-13-2024 XR Cervical spine 6 Views [facility] Service A hermila Work Phone: Comment on above: Once for 1 Occurrences starting 02/13/20 until 02/13/2024 XR Chest 2 Views XR chest 2 view s Imaging Routine Cervical radiculopathy Senile osteoporosis 02/13/2024 11:10 AM EDT [facility] Work Phone: XR Chest 2 Views [facility] Immunizations Immunization Date Immunization Notes Care Provider Fa adryanty 01-21-2021 COVID-19 Vaccine Pfi zer - Documentation Purposes Only Griselda Kuns Other [facility] 12-30-2020 COVID-19 Vaccine Pfi zer - Documentation Purposes Only Griselda Kuns Other [facility] 01-24-2016 KENALOG - 10 mg Griselda Kuns Other [facility] Other 01-27-2015 Toradol per 15 mg Griselda Kuns Other [facility] Other 03-15-2014 tetanus toxoid, redu julienne diphtheria toxoid, and acellular pertussis vaccine, adsorbed Griselda Hastings Other [facility] Other Payers Date Payer Category Payer Self-pay [id number] 2024 Medicare [id number]. [id number] 2024 Medicare [id number] 2023 Managed Care (Private) [facility] [id number]. [id number] 2022 Private Health Insurance [id number] 2.16.840.1.847479.19 2021 Private Health Insurance [facility] [employer] [id number] 2021-Present [phone] [address] [place] [address] PPO [id number]. [id number] 2019 Medicaid [employer] [id number] 2019-Present [phone] [address] [place] [address] Medicaid [id number] [id number]. [id number] 2019 Medicaid [id number]. 1.13.159.2. [id number] 2019 Private Health Insurance 1.2 .840.922346.1.13.159.2. 7.3.315259.315 2019 Unknown [id number] 2019 Unknown 2019 Unknown [id number] 2.16.840.1.607915.19 1962 Unknown [id number] 2.16.840.1.735193.3.579.2. 693 1962 Unknown [id number] 2.16.840.1.756616.3.579.2. 182 1962 Unknown [id number] 2.16.840.1.237982.3.579.2. 182 1962 Unknown [id number] 2.16.840.1.598406.3.579.2. 124 1962 Unknown [id number] 2.16.840.1.918131.3.579.2. 1244 1962 Unknown [id number] 2.16.840.1.359924.3.579.2. 1245 1962 Unknown [id number] 2.16.840.1.827411.3.579.2. 124 1962 Unknown [id number] 2.16.840.1.606006.3.579.2. 124 1962 Unknown [id number] 2.16.840.1.800916.3.579.2. 1244 1962 Unknown [id number] 2.16.840.1.541553.3.579.2. 124 1962 Unknown [id number] 2.16.840.1.351057.3.579.2. 124 1962 Unknown [id number] 2.16.840.1.718608.3.579.2. 1245 1962 Unknown [id number] 2.16.840.1.874385.3.579.2. 1244 1962 Unknown [id number] 2.16.840.1.792072.3.579.2. 1244 1962 Unknown [id number] 2.16.840.1.748243.3.579.2. 1245 1962 Unknown [id number] 2.16.840.1.864654.3.579.2. 1245 1962 Unknown [id number] 2.16.840.1.602019.3.579.2. 1245 1962 Unknown [id number] 2.16.840.1.807395.3.579.2. 1243 1962 Unknown [id number] 2.840.1.917106.3.579.2. 1243 1962 Unknown [id number] 2.16.840.1.213701.3.579.2. 1243 1962 Unknown [id number] 2.16.840.1.464274.3.579.2. 1258 1962 Unknown [id number] 2.16.840.1.936676.3.579.2. 1258 1962 Unknown [id number] 2.16840.1.365779.3.579.2. 1258 1962 Unknown [id number] 2.16.840.1.858203.3.579.2. 1258 1962 Unknown [id number] 2.16.840.1.329965.3.579.2. 1258 1962 Unknown [id number] 2.16.840.1.813399.3.579.2. 1258 1962 Unknown [id number] 2.16.840.1.077235.3.579.2. 1258 1962 Unknown [id number] 2.16.840.1.174698.3.579.2. 1259 1962 Unknown [id number] 2.16.840.1.547585.3.579.2. 1259 1962 Unknown [id number] 2.16.840.1.242677.3.579.2. 196 1962 Unknown [id number] 2.16.840.1.399032.3.579.2. 196 1962 Unknown [id number] 2.16.840.1.171687.3.579.2. 196 1962 Unknown [id number] 2.16.840.1.964727.3.579.2. 196 1962 Unknown [id number] 2.16.840.1.458854.3.579.2. 196 1962 Unknown [id number] 2.840.1.934936.3.579.2. 196 Private Health Insurance [id number] Unknown [id number] Unknown [id number] 2.16.840.1.115174.3.579.2. 531 Unknown [id number] 2.16840.1.012081.3.579.2. 531 Unknown [id number] 2.16.840.1.404546.3.579.2. 531 Unknown [id number] 2.16.840.1.862951.3.579.2. 531 Unknown [id number] 2.16.840.1.802095.3.579.2. 531 Unknown [id number] 2.16.840.1.778664.3.579.2. 531 Unknown [id number] 2.16.840.1.803694.3.579.2. 531 Unknown [id number] 2.16.840.1.865809.3.579.2. 531 Social History Date Type Detail Facility Start: 04-29-2018 End: 11-05-2024 Tobacco smoking status NHIS Smoker (finding) [facility] Start: 1960 Sex Assigned At Male F [facility] Start: 10-16-2019 Tobacco smoking status NHIS Ex-smoker [facility] Start: 06-18-1973 History of tobacco use Cigarette Smoker [facility] Start: 10-16-2019 End: 09-24-2024 Cigarettes smoked current (pack per day) - Reported 1.5 [facility] Start: 10-16-2019 End: 01-02-2024 Tobacco use and exposure Smokeless tobacco non-user [facility] Start: 10-14-2020 End: 01-08-2025 Alcohol intake Ex-drinker (finding) [facility] Start: 01-20-2019 History SDOH Alcohol Comment quit 2002 [facility] Start: 10-16-2019 Tobacco Comment quit smoking 01/2019 [facility] Start: 1960 Sex Assigned At Not on file C [facility] Start: 10-03-2021 End: 10-13-2024 Exposure to SARS-CoV-2 (event) Not sure [facility] Start: 07-03-2023 End: 09-24-[address] [facility] Start: 03-10-2022 End: 03-20-2022 Exposure to SARS-CoV-2 (event) Unable to assess [facility] Work Phone: Start: 12-28-2022 End: 01-02-[address] [facility] Start: 03-13-2023 Tobacco Comment 6-10 cigarettes/day [facility] Start: 09-20-2022 Gender identity Identifies as male gender (finding) [facility] Start: 09-20-2022 Sexual orientation Heterosexual (fin ding) [facility] Tobacco smoking status MIIS Tobacco smoking consumption unknown [facility] Work Phone: Start: 10-05-2023 End: 01-03-2024 Alcoholic beverage intake Lifetime non-drinker (finding) [facility] Work Phone: Adult Depression Screening Assessment 2 [facility] How often to you hav e a drink containing alcohol? Never [facility] In the past 12 months, was there a time when you were not able to pay the mortgage or rent on time? No [facility] Work Phone: Start: 04-28-2024 End: 11-25-2024 Sex Male (finding) [facility] NEGATED: Highlighted rowStart: NINF History of tobacco use Passive smoker [facility] Work Phone: Medical Equipment Procedure Code Equipment Code Equipment Origin al Text Equipment Identifier Dates Angiogram, lower extremity, left Multiple peripheral artery stent, bare-metal ([id number] FDA Start: 05-07-2023 Allograft, Triad Lordotic 6 X 11 X 14 - [id number] - [id number] Start: 04-09-2024 Allograft, Triad Lordotic 6 X 11 X 14 - [id number] - [id number] Start: 04-09-2024 Plate, Acp, 1.6v , 2 Level, 34mm - [id number] Start: 04-09-2024 Screw, Acp, Self Drill, 3.5 X 17mm, Variable - [id number] Start: 04-09-2024 3.5 X 19mm Screw [id number] Start: 04-09-2024 Comment on above: Description: per juan carlos l only jdr 04/10 Goals Date Patient Goal Desired Activity /State Personal health goal Functional Status Date Assessment Result Facility 10-13-2024 Patient Health Quest ionnaire 2 item (PHQ-2) [Reported] [facility] Work Phone: 10-13-2024 PHQ-9 quick depressi on assessment panel [Reported.PHQ] [facility] Work Phone: Clinical Notes 11-03-2008 to 01-08-2025 [...] INFLAMED SEBORRHEIC KERATOSIS Left Wrist - Anterior Dennison and brown stuck on verrucous scaly papule [...] limited to risks of scarring, darker or model and pattern supervisor pigmentary changes, recurrence, incomplete removal and infection. [...] limited to risks of scarring, darker or model and pattern supervisor pigmentary changes, recurrence, incomplete removal and infection. [...] year, skin check documented in this encounter [facility] 12-24-2024 History of Presen t illness Narrative Images from the original note were not included. Subjective Shantel Melendez is a 64 y.o. male who [...] spinal cord stimulator, as suggested by his parking line painter, and is scheduled to see his doctor [...] folder. The Procedure was done by Dr. Oziel Cadena. Left Anterior Shoulder After explaining the [...] chart. The Procedure was done by Dr. Oziel Cadena. This note was scribed by Jocelyn Arango(Neisha) acting under the direction of Oziel Cadena MD. The content has been reviewed and confirmed for accuracy by Oziel Cadena MD Assessment & Plan 1. Neck [...] was administered today. documented in this encounter [facility] 11-19-2024 Evaluation note Authored November 19, 2024 2:36p m Sooner if needed, the ER if concerns,The above note written by Shilpi Lantigua LPN acting as human recorder, note dictated by Dr. Griselda Hastings [facility] Work Phone: 1(730) 316-364405-28-2025 History of Present illness Narrative* Oziel Cadena MD - 11/12/2024 1:40 PM EDT Images from the original note were not included. CHIEF COMPLAINT REASON FOR VISIT: Patient is here today for headaches, neck pain and left shoulder pain. HPI: Shantel Melendez is a 63 y.o. male who [...] ezetimibe (ZETIA) 10 mg, Oral, Daily HYDROcodone-acetaminophen (Elkins) 5-325 MG tablet take 1 tablet orally [...] Depression: Not at risk (11/05/2024) Received from [facility] PHQ-2 PHQ-2 score: 2 REVIEW OF SYMPTOMS: [...] Ana Luisa's absent. Ankle clonus absent. Coordination Vmotsw-gz-qfcq, rapid alternating movements and bhzd-zq-wnjk normal bilaterally without dysmetria. Gait Normal casual, [...] site. The Procedure was done by Dr. Oziel Cadena. Posterior Shoulder Injection After explaining the [...] site. The Procedure was done by Dr. Oziel Cadena. This note was scribed by Jocelyn Arango(Neisha) acting under the direction of Oziel Cadena MD. Thecontent has been reviewed and confirmed for accuracy by Oziel Cadena MD ASSESSMENT AND PLAN: 1. Nerve [...] the injections if needed. documented in this encounter[facility] [id number] NoteHNO ID: [id number] Author: RACQUEL COLE MD Service: ? Author Type: Physician Type: Progress Notes Filed: 11/07/2024 11:09 Note Text: NAME: Shantel Melendez CLINIC NO.: [id number] DATE OF SERVICE: November 07, 2024 (Curtis) Some elements in this clinic note that are critical to medical decision making have been carefully reviewed and included from a prior clinic note dated: November 02, 2023 (Curtis) Referring Provider: Griselda Hastings DO Additional Clinicians involved in Shantel Melendez's care: Dr Kimberly Nichloe ENT, Dr. 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 10/05/2021 - MRI Brain: [facility] There is T2 and T2 flair hyperintense signal predominantly to the right of midline in the jose but also involving the left anterior jose with extension to the right facial colliculus [...] midline into the left side of the jose. There appears to be a 2 mm [...] change. Brainst (more content not included)...[facility]05-19-2025 History of Present illness Narrative* Curtis Da [...] SIGNATURE: Curtis Da Silva RN PATIENT NAME: Shantel Melendez DATE: November 03, 2024 TIME: 8:13 AM * Sally Doyle RT(R) - 11/03/2024 8:15 AM EDT Radiology Service Progress Note PATIENT NAME: Shantel Melendez DATE OF SERVICE: November 03, 2024 [...] PATIENT PRESENTS WITH AN IMPLANTABLE OR ATTACHED ADMINISTRATIVE UNDERWRITER: No RADIOLOGY DEPARTMENT: CT; Exam(s) Completed: Chest and Neck PERIPHERAL IV DATA: Site assessment: Clean,Dry and Intact, Site disposition Discontinued SIGNED BY: RT Craig(R) November 03, 2024 8:32 AM [facility] NoteHNO ID: [id number] Author: CURTIS DA SILVA RN Service: ? [...] SIGNATURE: Curtis Da Silva RN PATIENT NAME: Shantel Melendez DATE: November 03, 2024 TIME: 8:13 [facility]05-19-2025 NoteHNO ID: [id number] Author: SALLY DOYLE RT(R) Service: ? Author Type: Technologist Type: Progress Notes Filed: 11/03/2024 08:32 Note Text: Radiology Service Progress Note PATIENT NAME: Shantel Melendez DATE OF SERVICE: November 03, 2024 [...] PATIENT PRESENTS WITH AN IMPLANTABLE OR ATTACHED ADMINISTRATIVE UNDERWRITER: No RADIOLOGY DEPARTMENT: CT; Exam(s) Completed: Chest and Neck PERIPHERAL IV DATA: Site assessment: Clean,Dry and Intact, Site disposition Discontinued SIGNED BY: Sally Doyle, RT(R) November 03, 2024 8:32 [facility]05-19-2025 Telephone encounter Note* Telephone Encounter - Curtis Da Silva RN - 11/03/2024 7:49 AM EDT Please sign pended labs for 1 year f/u-will draw with CT today Thank You! Curtis Da Silva RN [facility]05-19-2025 Miscellaneous Notes* Telephone Encounter - Curtis Da Silva RN - 11/03/2024 7:49 AM EDT Please sign pended labs for 1 year f/u-will draw with CT today Thank You! Curtis Da Silva RN [facility] History of Present illness Narrative* Doretha Harris MD - 10/13/2024 9:00 AM EDT Shantel Melendez is a 63 y.o. year old [...] C-spine: moderate stenosis C4-7 Assessment and Plan: Shantel Melendez is a very nice 63 y.o. [...] 2 months to assess the C7 screw. Doretha Harris MD Chief Engineer Waterworks of Neurosurgery [facility] Office: [phone] [1] Past Surgical History: Procedure Laterality Date [...] 60 capsule, Rfl: 0 documented in this [facility] Work Phone: 1(872) 914-250204-21-2025 [facility] [place] [address] [place] [address] CT Scan Report Signed Patient: Shantel Melendez MR#: [id number] : 1960 Acct:[id number] Age/Sex: 63 / M ADM Date: 5 Loc: ER Room: Type: [facility] ER Attending Dr: Copies to: Manisha Negron [...] Dorothy Eubanks M.D.10/06/2024 4:08 PM Dictation Location: [place] [address] Transcribed By: [facility] 10/06/24 1608 Dictated By: Dorothy Eubanks MD 10/06/24 1556 Signed By: 10/06/24 1608 [facility] Work Phone: 1(982) 141-514104-21-2025 Radiology [facility] Main [place] [address] [place] [address] CT Scan Report Signed Patient: Shantel Melendez MR#: [id number] : 1960 Acct:[id number] Age/Sex: 63 / M ADM Date: 5 Loc: ER Room: Type: [facility] ER Attending Dr: Copies to: Manisha Negron [...] Dorothy Eubanks M.D.10/06/2024 3:56 PM Dictation Location: [place] [address] Transcribed By: [facility] 10/06/24 155 Dictated By: Dorothy Eubanks MD 10/06/24 1551 Signed By: 10/06/24 1556 [facility] Work Phone: 1(480) 821-803503-27-2025 Evaluation note* Diagnosis Onset Date Resolution Status Admit Date Current every day smoker acute September 11, 2024 8:53am PAD (peripheral artery disease) acut e September 11, 2024 8:53am Right leg claudication acute [facility] 2024 8:53am [facility] Work Phone: 1(886) 469-663403-27-2025 Evaluation note* Diagnosis Onset Date Resolution Status Admit Date Current every day smoker acute September 11, 2024 8:53am PAD (peripheral artery disease) acut e September 11, 2024 8:53am Right leg claudication acute [facility] 2024 8:53am Cardiac arrhythmia acute October 272024 9:37am Essential hypertension acute Nd 2024 9:37am Hyperlipidemia acute October 27, 2024 9:37am 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, 2024 9:37am PAD (peripheral artery disease) sophy mone October 27, 2024 9:37am [facility] Work Phone: 1(147) 472-282103-27-2025 Evaluation note* Diagnosis Onset Date Resolution Status Admit Date Current every day smoker acute September 11, 2024 8:53am PAD (peripheral artery disease) acut e September 11, 2024 8:53am Right leg claudication acute Ma rch 2024 8:53am Abdominal pain acute September 1:02pm Change in bowel habits acute Ap ril 2024 1:02pm Diarrhea acute October 10 1:02pm Dysphagia acute October 10 1:02pm Early [...] 1:57pm Change in bowel habits acute Ju 2024 1:57pm Diarrhea acute November 17, 2024 1:57pm Dysphagia acute November 17, 2024 1:57pm [facility] Work Phone: 1(166) 138-178903-27-2025 Evaluation note* Diagnosis Onset Date Resolution Status Admit Date Current every day smoker acute September 11, 2024 8:53am PAD (peripheral artery disease) acut e September 11, 2024 8:53am Right leg claudication acute [facility] 2024 8:53am Abdominal pain acute September 1:02pm Change in bowel habits acute Ap ril 2024 1:02pm Diarrhea acute October 10 1:02pm Dysphagia acute October 10 1:02pm Early [...] 1:57pm Change in bowel habits acute Ju 2024 1:57pm Diarrhea acute November 17, 2024 1:57pm Dysphagia acute November 17, 2024 1:57pm RSV (respiratory syncytial v irus infection) acute November 19, 2024 2 :26pm [facility] Work Phone: 1(613) 940-702103-27-2025 History of Present illness Narrative* Oziel Cadena MD - 09/11/2024 10:40 AM EDT Images from the original note were not included. CHIEF COMPLAINT REASON FOR VISIT : Injection HPI: Shantel Melendez is a 63 y.o. male who [...] ezetimibe (ZETIA) 10 mg, Oral, Daily HYDROcodone-acetaminophen (Elkins) 5-325 MG tablet take 1 tablet orally [...] Depression: Not at risk (06/30/2024) Received from [facility] PHQ-2 Patient Health Questionnaire-2 Score: 2 [...] Ana Luisa's absent. Ankle clonus absent. Coordination Hkbzwr-ni-yxgd, rapid alternating movements and wrlg-io-pysp normal bilaterally without dysmetria. Gait Normal casual, [...] and surface anesthetic; a 25 gauge 1 /2 spinal needle was advanced and the patient [...] the injections if needed. documented in this encounterMer[facility] [id number] History of Present illness Narrative* Oziel Cadena MD - 07/31/2024 1:20 PM EST Images from the original note were not included. CHIEF COMPLAINT REASON FOR VISIT : Injections HPI: Shantel Melendez is a 63 y.o. male who [...] ezetimibe (ZETIA) 10 mg, Oral, Daily HYDROcodone-acetaminophen (Elkins) 5-325 MG tablet take 1 tablet orally [...] Depression: Not at risk (06/30/2024) Received from [facility] PHQ-2 Patient Health Questionnaire-2 Score: 2 [...] the injections if needed. documented in this encounterMercy [facility] [id number] Evaluation note* Author Shilpi Lantigua [facility] Authored July 03, 2024 4 :44pm Sooner if needed, the ER if concerns,The above note written by Shilpi Lantigua LPN acting as human recorder, note dictated by Dr. Griselda Hastings [facility] Work Phone: 1([phone]) 505-449101-15-2025 History of Present illness Narrative* Oziel Cadena MD - 07/02/2024 2:00 PM EST Images from the original note were not included. CHIEF COMPLAINT REASON FOR VISIT : Injections HPI: Shantel Melendez is a 63 y.o. male who [...] ezetimibe (ZETIA) 10 mg, Oral, Daily HYDROcodone-acetaminophen (Elkins) 5-325 MG tablet take 1 tablet orally [...] Depression: Not at risk (06/30/2024) Received from [facility] PHQ-2 Patient Health Questionnaire-2 Score: 2 [...] injections at that time. documented in this encounterMercy McCune-Brooks [id number] History of Present illness Narrative* Doretha Harris MD - 06/30/2024 9:00 AM EST Shantel Melendez is a 63 y.o. year old [...] hardware in good position Assessment and Plan: Shantel Melendez is a very nice 63 y.o. [...] 3 months with another set of XR. Doretha Harris MD Chief Engineer Waterworks of Neurosurgery [facility] Office: [phone] Scribe Attestation By signing my name below, I, Shira Sen, Scribe, attest that this documentation has been preparedunder the direction and in the presence of Doretha Harris MD. documented in this [facility] Work Phone: 1(800) 849-735712-04-2024 History of Present illness Narrative* Oziel Cadena MD - 05/21/2024 2:00 PM EST Images from the original note were not included. CHIEF COMPLAINT REASON FOR VISIT : Injections HPI: Shantel Melendez is a 63 y.o. male who [...] ezetimibe (ZETIA) 10 mg, Oral, Daily HYDROcodone-acetaminophen (Elkins) 5-325 MG tablet take 1 tablet orally [...] Depression: Not at risk (04/09/2024) Received from [facility] PHQ-2 Patient Health Questionnaire-2 Score: 0 [...] his injections if needed. documented in this encounterMercy McCune-Brooks [id number] History of Present illness Narrative* Solomon Narayanan PA-C - 04/30/2024 1:00 PM EST Images from the original note were not included. [facility] Department of Neurological Surgery Post Operative Patient Visit History of Present Illness: Shantel Melendez is a 70 y.o. year old [...] CAD (coronary artery disease) Peripheral vascular disease ([facility]) Past Medical History: Diagnosis Date Anxiety Cataract s/p excision of left Cervical radiculopathy Chronic pain disorder Coronary artery disease Depression Dysphagia thin liquids Hypertension NPH (normal pressure hydrocephalus) (Multi) PAD (peripheral artery disease) ([facility]) s/p stent (05/2023) on ASA 81mg Peripheral vascular disease ([facility]) Pontine lesion watchful waiting Pulmonary nodule Skin [...] directly. Sincerely, RICH Hernandez PA-C Associate Physician Elementary Substitute Teacher, Neurosurgery Clinical Chief Engineer Waterworks [facility] [employer] [place] [address] [place] [address] documented in this [facility] Work Phone: 1([phone]) 336-634811-11-2024 Evaluation note* Diagnosis Onset Date Resolution Status [...] prostate cancer acute July 03, 2024 9:23am [facility] Work Phone: 1([phone]) 748-887810-24-2024 Hospital course Narrative* Aaron Gallo PA-C - [...] HYDROcodone-acetaminophen 5-325 mg tablet; Commonly known as: Elkins tiZANidine 4 mg capsule; Commonly known as: Zanaflex Outpatient Follow-Up Future Appointments Date Time Provider Department Center 04/30/2024 1:00 PM Solomon Narayanan PA-C [id number] [place] 05/02/2024 9:00 AM [facility] [place] 05/02/2024 10:00 AM Helder Jack MD [id number] [facility] 06/30/2024 9:00 AM Doretha Harris MD [id number] [place] Aaron Gallo PA-C documented in this [facility] Work Phone: 1([phone]) 136-577010-24-2024 History of Present illness Narrative* Nikole Lezama, PharmD - 04/10/2024 12:11 PM EDT Pharmacy Medication History Review Shantel Melendez is a 63 y.o. male admitted for Cervical radiculopathy. Pharmacy reviewed the patient's qgsnb-il-frafeyqoq medications and allergies for accuracy. Medications ADDED: norco Medications CHANGED: Tizanidine nightly to as needed Medications REMOVED: Diamox Albuterol The list below reflects the updated PIPELINE INTEGRITY ENGINEER list. Prior to Admission Medications Prescriptions Last Dose Informant HYDROcodone-acetaminophen (Elkins) 5-325 mg tablet Self Sig: Take 1.5 [...] Report Patient interview (good historian-required some prompting) [facility] medical note 01/29 Additional Comments: none Nikole Lezama PharmD Transitions of Care Pharmacist 04/10/24 Secure Chat preferred If no response call [id number] or Echolocation Rec * Tori Johnson OT - 04/10/2024 11:57 AM EDT Occupational Therapy Evaluation Patient Name: Shantel Melendez Today's Date: 04/10/2024 Room: [address] [place] [address]-A Time Calculation Start Time: 9 Stop Time: 1032 Time Calculation (min): 13 [...] bars in shower Prior Function: Level of Reeves: Independent with ADLs and functional transfers, Independent with homemaking with ambulation ADL Assistance: Independent Homemaking Assistance: Independent Ambulatory Assistance: Independent 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, 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 [...] LUE LUE: Within Functional Limits Outcome Measures: [facility] Daily Activity Putting on and taking off [...] 11:57 AM TORI JOHNSON OT Rehab Office: [phone] * Tia Caceres, PT - 04/10/2024 10:33 AM EDT Physical Therapy Physical Therapy Evaluation Patient Name: Shantel Melendez Department: [place] [address] Room: 4058/4058-A Today's Date: 04/10/2024 Time Calculation Start Time: [...] Prior Function Per Pt/Caregiver Report Level of Reeves: (independent ambulation in/outdoors no device, independent stairclimbing as needed, no falls) ADL Assistance: Independent Homemaking Assistance: Independent Ambulatory Assistance: Independent 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 male on [...] today PTOT Nate Alvarez MD Cosigned by Doretha Harris MD at 04/10/2024 12:31 PM EDT Associated attestation - Doretha Harris MD - 04/10/2024 12:31 PM EDT I reviewed the resident/fellow's documentation and discussed the patient with the resident/fellow. I agree with the resident/fellow's medical decision making as documented in the note. [facility] Work Phone: 1([phone]) 433-448410-23-2024 Plan of care note* Care Plan - [...] goals for the shift include pain management. [facility] Work Phone: 1([phone]) 115-301910-23-2024 Miscellaneous Notes* Care Plan - Elizabeth Esposito [...] (B) Operative Note Date: 04/09/2024 OR Location: [facility] OR Name: Shantel Melendez, : 1960, Age: 63 y.o., , Sex: male Diagnosis Pre-op Diagnosis * Cervical radiculopathy [M54.12] * Senile osteoporosis [M81.0] Post-op Diagnosis * Cervical radiculopathy [M54.12] * Senile osteoporosis [M81.0] Procedures Fusion Spine Anterior Cervical and Discectomy C5-6, C6-7 50086 - WA ARTHRD ANT INTERBODY DECOMPRESS CERVICAL BELW C2 WA ARTHRD ANT INTERBODY DECOMPRESS CERVICAL BELW C2 [81210] WA ARTHRD ANT INTERDY CERVCL BELW C2 EA ADDL NTRSPC [50591] WA ALLOGRAFT FOR SPINE SURGERY ONLY STRUCTURAL [10679] WA MICROSURG TQS REQ USE OPERATING MICROSCOPE [00925] Surgeons * Doretha Harris - Primary Resident/Fellow/Other Elementary Substitute Teacher: Surgeons and Role: * Chicho Bryan MD - Resident - Assisting * Rojas Edwards MD - Resident - Assisting Procedure Summary Anesthesia: General ASA: III Anesthesia Staff: Anesthesiologist: Fred Cheek MD C-AA: NAVEEN Bear Capp; ANVEEN Reddy IVONE: Jamee Woodall Estimated Blood Loss: [...] 85 mL Specimen: No specimens collected Staff: Lapidary Apprentice: Derrell Scrub Person: Beverly Scrub Person: Shaina Drains and/or Catheters: Closed/Suction Drain 1 Neck Bulb 10 Fr. (Active) Urethral Catheter Double-lumen;Non-latex 16 Fr. (Active) Tourniquet Times: Implants: Implants Type Name Action Serial No. Spinal Hardware SCREW, DISTRACTION, 14 MM - [id number] Used, Not Implanted Spinal Hardware ALLOGRAFT, TRIAD LORDOTIC 6 X 11 X 14 - [id number] - [id number] Implanted [id number] Spinal Hardware ALLOGRAFT, TRIAD LORDOTIC 6 X 11 X 14 - [id number] - [id number] Implanted [id number] Spinal Hardware PLATE, ACP, 1.6V, 2 LEVEL, 34MM - [id number] Implanted Spinal Hardware SCREW, ACP, SELF DRILL, 3.5 X 17MM, VARIABLE - [id number] Implanted 3.5 X 19MM SCREW Implanted Findings: good placement of hardware on fluoro Indications: Shantel Melendez is an 63 y.o. male who [...] then placed our self-retaining retractor in and Crane pins in and placed the disc space [...] Condition: stable Additional Details: none Attending Attestation: Doretha Harris Cosigned by Doretha Harris MD at 04/09/2024 4:50 PM EDT documented in this [facility] Work Phone: 1(658) 573-328010-23-2024 Nurse Note* Shantelle Pacheco RN - 04/09/2024 7:03 PM EDT Patient transferred from PACU to [id number] via stretcher in stable condition. Patient oriented to room, bed, and call light. Skin assessment witnessed by Brianda Dowling RN. Will continue to monitor. [facility] Nurse Note* Shantelle Pacheco RN - 04/09/2024 7:03 PM EDT Patient transferred from PACU to [id number] via stretcher in stable condition. Patient oriented to room, bed, and call light. Skin assessment witnessed by Brianda Dowling RN. Will continue to monitor. documented in [facility] Work Phone: 1(840) 194-612710-23-2024 Hospital Note* Hospital Course - Aaron Gallo PA-C - 04/09/2024 5:04 PM EDT 63M h/p HTN, CAD, PAD s/p stent on ASA81, pontine glioma, tongue cancer p/w LUE radiculopathy, 04/09 s/p C5-7 ACDF 04/10 PT/OT DC recs no needs, post operative xray shows good position, Drain removed [facility] Work Phone: 1(248) 826-894510-23-2024 Note* Op Note - Chicho Bryan MD - 04/09/2024 2:30 PM EDT Fusion Spine Anterior Cervical and Discectomy C5-6, C6-7 (B) Operative Note Date: 04/09/2024 OR Location: [facility] OR Name: Shantel Melendez, : 1960, Age: 63 y.o., , Sex: male Diagnosis Pre-op Diagnosis * Cervical radiculopathy [M54.12] * Senile osteoporosis [M81.0] Post-op Diagnosis * Cervical radiculopathy [M54.12] * Senile osteoporosis [M81.0] Procedures Fusion Spine Anterior Cervical and Discectomy C5-6, C6-7 94214 - WA ARTHRD ANT INTERBODY DECOMPRESS CERVICAL BELW C2 WA ARTHRD ANT INTERBODY DECOMPRESS CERVICAL BELW C2 [88588] WA ARTHRD ANT INTERDY CERVCL BELW C2 EA ADDL NTRSPC [41144] WA ALLOGRAFT FOR SPINE SURGERY ONLY STRUCTURAL [80311] WA MICROSURG TQS REQ USE OPERATING MICROSCOPE [61724] Surgeons * Doretha Harris - Primary Resident/Fellow/Other Elementary Substitute Teacher: Surgeons and Role: * Chicho Bryan MD [...] 85 mL Specimen: No specimens collected Staff: Lapidary Apprentice: Derrell Scrub Person: Beverly Scrub Person: Shaina Drains and/or Catheters: Closed/Suction Drain 1 Neck Bulb 10 Fr. (Active) Urethral Catheter Double-lumen;Non-latex 16 Fr. (Active) Tourniquet Times: Implants: Implants Type Name Action Serial No. Spinal Hardware SCREW, DISTRACTION, 14 MM - [id number] Used, Not Implanted Spinal Hardware ALLOGRAFT, TRIAD LORDOTIC 6 X 11 X 14 - [id number] - [id number] Implanted [id number] Spinal Hardware ALLOGRAFT, TRIAD LORDOTIC 6 X 11 X 14 - [id number] - [id number] Implanted [id number] Spinal Hardware PLATE, ACP, 1.6V, 2 LEVEL, 34MM - [id number] Implanted Spinal Hardware SCREW, ACP, SELF DRILL, 3.5 X 17MM, VARIABLE - [id number] Implanted 3.5 X 19MM SCREW Implanted Findings: good placement of hardware on fluoro Indications: Shantel Melendez is an 63 y.o. male who [...] then placed our self-retaining retractor in and Crane pins in and placed the disc space [...] Condition: stable Additional Details: none Attending Attestation: Doretha Harris Cosigned by Doretha Harris MD at 04/09/2024 4:50 PM EDT [facility] Work Phone: [phone] Attending History and physical note* Rojas Edwards MD - 04/09/2024 12:22 PM EDT H&P reviewed. The patient was examined and there are no changes to the H&P. Cosigned by Doretha Harris MD at 04/09/2024 12:53 PM EDT Source Note - Rick MckinneyBAILEY-BINDERY MACHINE SETTER - 03/26/2024 10:30 AM EDT Images from the original note were not included. CPM/PAT Evaluation Name: Shantel Melendez (Shantel Melendez) /Age: 611/24/1960/63 y.o. Visit Type: In-Person [...] pressure hydrocephalus) (Multi) PAD (peripheral artery disease) ([facility]) s/p stent (05/2023) on ASA 81mg Peripheral vascular disease ([facility]) Pontine lesion watchful waiting Pulmonary nodule Skin [...] mg) by mouth once daily. 08/02/23 Historical ProviderMD busPIRone (Buspar) 5 mg tablet Take by [...] Flowsheet Row Pre-Admission Testing from 02/11/2024 in [facility] Questionnaire Series Submission from 02/06/2024 in [facility] with Generic Provider Laura Can you take care of yourself (eat, dress, bathe, or use toilet)? 2.75 filed at 02/11/20248 2.75 filed at 02/06/2024 003 Can you walk indoors, such as around your house? 1.75 filed at 02/11/20248 1.75 filed at 02/06/2024 0032 Can you walk a block or two on level ground? 2.75 filed at 02/11/20248 2.75 filed at 32 Can you climb a flight of stairs or walk up a hill? 5.5 filed at 02/11/20241417 5.5 filed at 02/06/2024 0032 Can you run a short distance? 0 filed at 02/11/20248 8 filed at 02/06/202431 Can you do light work around the house like dusting or washing dishes? 2.7 filed at 02/11/2024 46118.7 filed at 02/06/2024 0032 Can you do moderate work around the house like vacuuming, sweeping floors or carrying groceries? 3.5 filed at 02/11/20248 3.5 filed at 02/06/202431 Can you do [...] 02/11/2024 1418 0 filed at 02/06/2024 003 DASI SCORE 18.95 filed at 02/11/20241417 39.45 filed at 02/06/2024 0032 METS Score (Will be calculated only when all the questions are answered) 5.1 filed at 02/11/2024 141 7.6 filed at 02/06/2024 0032 Caprini DVT Assessment Flowsheet Row Pre-Admission Testing from 02/11/2024 in [facility] DVT Score 11 filed at 02/11/2024 1506 BMI 30 or less filed at 02/11/2024 1506 RETIRED: Current Status Major surgery planned, lasting over 3 hours filed at 02/11/2024 1506 RETIRED: History Prior major surgery, Previous malignancy filed at 02/11/2024 1506 RETIRED: Age 60-75 years filed at 02/11/2024 1506 Modified Frailty Index Flowsheet Row Pre-Admission Testing from 02/11/2024 in [facility] Non-independent functional status (problems with dressing, bathing, personal grooming, or cooking) 0 filed at 02/11/2024 1505 History of diabetes mellitus 0 filed at 02/11/2024 1505 History of COPD 0 filed at 02/11/2024 1505 History of CHF No filed at 02/11/2024 1505 History of UT 0 filed at 02/11/2024 1505 History of [...] Flowsheet Row Pre-Admission Testing from 02/11/2024 in [facility] High-Risk Surgery (Intraperitoneal, Intrathoracic,Suprainguinal vascular) 0 filed at 02/11/2024 1505 History of ischemic heart disease (History of UT, History of positive exercuse test, Current chest [...] Flowsheet Row Pre-Admission Testing from 02/11/2024 in [facility] Smoking status 0 filed at [...] Flowsheet Row Pre-Admission Testing from 03/26/2024 in [facility] Pre-Admission Testing from 02/11/2024 in [facility] Do you snore loudly? 0 [...] Yellow, Dark-Yellow Appearance, Urine Clear Clear Specific Midway, Urine 1.007 1.005 - 1.035 pH, Urine [...] Rate 63 BPM Atrial Rate 63 BPM WA Interval 268 ms QRS Duration 74 ms QT Interval 406 ms QTC Calculation(Bazett) 415 ms P Beverly 58 degrees R Beverly -3 degrees T Beverly 18 degrees QRS Count 10 beats Q [...] infiltrating the brainstem most pronounced within the jose right slightly greater than left unchanged in appearance when compared with the prior study dated 07/18/2023. There is no significant associated mass effect or volume loss. On the obtained advanced MRI imaging, an ROIs was placed over the area of nonspecific nonenhancing bright signal on the FLAIR and T2 images within the right aspect of the jose and compared with contralateral more normal appearing brain parenchymal within the left lateral aspect of the jose which demonstrates no abnormal elevated corrected rCBV [...] preoperative brain exercises given to patient. Neurosurgery: Doretha Harris MD [facility] 01/03/24 seen for cervical radiculopathy. Neurosurgery: Jose Cruz Khan MD [facility] 11/05/23- [facility] seen for cervical stenosis of spine. Oncology: Helder Jack MD [facility] 12/13/23 seen for incidental pontine lesion- appears to be low-grade. HEENT/Airway The patient has history of selective right neck dissection (II-V) and bilateral base of tongue/linguial tonsillar excision on 01/30/[address] 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 Currently with limited neck extension. No documented or reported history of airway difficulty. HemOnc: Racquel Cole MD [facility] 11/02/23-[facility] seen for head and neck cancer. Cardiovascular [...] Cardiology Evaluation Cardiology: Lilliam Cason MD - [facility] (see media tab for last office note) [...] understanding ofpreoperative instructions. After Visit Summary given. [facility] Work Phone: 1(585) 750-291710-23-2024 History and physical note* Rojas Edwards MD - 04/09/2024 12:22 PM EDT H&P reviewed. The patient was examined and there are no changes to the H&P. Cosigned by Doretha Harris MD at 04/09/2024 12:53 PM EDT Source Note - ANOOP Yanes - 03/26/2024 10:30 AM EDT Images from the original note were not included. CPM/PAT Evaluation Name: Shantel Melendez (Shantelkal Melendez) /Age: 611/24/1960/63 y.o. Visit Type: In-Person [...] pressure hydrocephalus) (Multi) PAD (peripheral artery disease) ([facility]) s/p stent (05/2023) on ASA 81mg Peripheral vascular disease ([facility]) Pontine lesion watchful waiting Pulmonary nodule Skin [...] as directed daily preoperatively 02/11/24 Rick Mckinney APRN-LUCIO chlorhexidine (Peridex) 0.12 % solution Swish and spit with 15ml of solution the night before and morning of surgery. Do not swallow. 02/11/24 Rick Mckinney APRN-BINDERY MACHINE SETTER citalopram (CeleXA) 20 mg tablet Take 0.5 [...] Flowsheet Row Pre-Admission Testing from 02/11/2024 in [facility] Questionnaire Series Submission from 02/06/2024 in [facility] Care with Generic Provider Laura Can you [...] or washing dishes? 2.7 filed at 02/11/2024 02720.7 filed at 02/06/2024 003 Can you do moderate work around the house like vacuuming, sweeping floors or carrying groceries? 3.5 filed at 02/11/20248 3.5 filed at 02/06/2024 0032 Can you [...] Flowsheet Row Pre-Admission Testing from 02/11/2024 in [facility] DVT Score 11 filed at 02/11/2024 1506 BMI 30 or less filed at 02/11/2024 1506 RETIRED: Current Status Major surgery planned, lasting over 3 hours filed at 02/11/2024 1506 RETIRED: History Prior major surgery, Previous malignancy filed at 02/11/2024 1506 RETIRED: Age 60-75 years filed at 02/11/2024 1506 Modified Frailty Index Flowsheet Row Pre-Admission Testing from 02/11/2024 in [facility] Non-independent functional status (problems with dressing, bathing, personal grooming, or cooking) 0 filed at 02/11/2024 1505 History of diabetes mellitus 0 filed at 02/11/2024 1505 History of COPD 0 filed at 02/11/2024 1505 History of CHF No filed at 02/11/2024 1505 History of UT 0 filed at 02/11/2024 1505 History of [...] Flowsheet Row Pre-Admission Testing from 02/11/2024 in [facility] High-Risk Surgery (Intraperitoneal, Intrathoracic,Suprainguinal vascular) 0 filed at 02/11/2024 1505 History of ischemic heart disease (History of UT, History of positive exercuse test, Current chest [...] Flowsheet Row Pre-Admission Testing from 02/11/2024 in [facility] Smoking status 0 filed at [...] Flowsheet Row Pre-Admission Testing from 03/26/2024 in [facility] Pre-Admission Testing from 02/11/2024 in [facility] Do you snore loudly? 0 [...] Yellow, Dark-Yellow Appearance, Urine Clear Clear Specific Midway, Urine 1.007 1.005 - 1.035 pH, Urine [...] Rate 63 BPM Atrial Rate 63 BPM WA Interval 268 ms QRS Duration 74 ms QT Interval 406 ms QTC Calculation(Bazett) 415 ms P Beverly 58 degrees R Beverly -3 degrees T Beverly 18 degrees QRS Count 10 beats Q [...] infiltrating the brainstem most pronounced within the jose right slightly greater than left unchanged in appearance when compared with the prior study dated 07/18/2023. There is no significant associated mass effect or volume loss. On the obtained advanced MRI imaging, an ROIs was placed over the area of nonspecific nonenhancing bright signal on the FLAIR and T2 images within the right aspect of the jose and compared with contralateral more normal appearing brain parenchymal within the left lateral aspect of the jose which demonstrates no abnormal elevated corrected rCBV [...] preoperative brain exercises given to patient. Neurosurgery: Doretha Harris MD [facility] 01/03/24 seen for cervical radiculopathy. Neurosurgery: Jose Cruz Khan MD [facility] 11/05/23- [facility] seen for cervical stenosis of spine. Oncology: Helder Jack MD [facility] 12/13/23 seen for incidental pontine lesion- appears to be low-grade. HEENT/Airway The patient has history of selective right neck dissection (II-V) and bilateral base of tongue/linguial tonsillar excision on 01/30/[address] 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 Currently with limited neck extension. No documented or reported history of airway difficulty. HemOnc: Racquel Cole MD [facility] 11/02/23-[facility] seen for head and neck cancer. Cardiovascular [...] Cardiology Evaluation Cardiology: Lilliam Cason MD - [facility] (see media tab for last office note) [...] After Visit Summary given. [facility] Work Phone: 1(925) 109-610610-15-2024 Evaluation note* Author [facility] Authored April 01, 2024 1 0:01am The above note written by Leon Humphreys LPN, acting as human recorder, note dictated by Dr. Griselda Hastings. [facility] Work Phone: 1(194) 379-690108-15-2024 Evaluation note* Author [facility] Authored January 31, 2024 10 :40am The above note written by Leon Humphreys LPN, acting as human recorder, note dictated by Dr. Griselda Hastings. Author [facility] Authored April 01, 2024 1 1:01am The above note written by Leon Humphreys LPN, acting as human recorder, note dictated by Dr. Griselda Hastings. [facility] Work Phone: 1(353) 531-701507-18-2024 History of Present illness Narrative* Doretha Harris MD - 01/03/2024 1:30 PM EDT Shantel Melendez is a 63 y.o. year old [...] Items Addressed This Visit None Assessment/Plan Mr. Shantel Melendez is a very nice 63 y.o. [...] will need a bone stimulator after surgery. Doretha Harris MD Chief Engineer Water[employer] of Neurosurgery [facility] Office: [phone] Scribe Attestation By signing my name below, I, Erlinda Salas attest that this documentation has been prepared under the direction and in the presence of MD Shirley. documented in this [facility] Work Phone: 1(102) 272-663206-27-2024 History of Present illness Narrative* Helder Jack MD - 12/13/2023 10:00 AM EDT Patient ID: Shantel Melendez is a 63 y.o. male. Referring Physician: Shimon Heaton PA-C [id number] [place] [address] Primary Care Provider: Griselda Hastings DO Subjective History of Present Ilness: 62 y.o. presents in neurosurgical consultation from [facility] for cervical stenosis.C/o neck pain and LUE pain, numbness and weakness down to hand for 2 years. SawNeurosurgeon at and has had 2 spinal taps with some improvement. Went to [facility] to be assessed for hydrocephal;us and was told he does not have hydrocephalus. He saw Dr. Lara at the [facility]. Also pain behind left eye. No RUE sx. On Plavix for PVD- stent in leg 2 months. Past Medical History: Hypercholesterolemia Cervical foraminal stenosis Past Surgical History: History reviewed. No pertinent surgical history. INTERVAL HISTORY (10/05/2023): Shantel Melendez is a 62 yo RH male [...] issues. 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 INTERVAL HISTORY (12/13/2023): Since the last visit, he continues to have severe neck pain, which isslowly getting worse, along with some muffled hearing on the left side. He tried going back to parttime work, but the activity made the neck pain much more severe. 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 He has now been to see a Neurosurgery PA (Solomon Narayanan) at [facility] about the neck, who thought surgical decompression was reasonable. He will see the Neurosurgeon soon to discuss the possible surgery. He has had some Botox injections into the neck and associated muscles, and has some steroid injections due next week. He tried some test shots for an Ablation procedure, but they were too painful. The ROS is as per documentation in the [facility]. Objective BSA: There is no height or weight on file to calculate BSA. There were no vitals taken for this visit. No family history on file. Oncology History No history exists. Shantel Melendez reports that he has been smoking [...] infiltrating the brainstem most pronounced within the jose right slightly greater than left unchanged in appearance when compared with the prior study dated 07/18/2023. There is no significant associated mass effect or volume loss. On the obtained advanced MRI imaging, an ROIs was placed over the area of nonspecific nonenhancing bright signal on the FLAIR and T2 images within the right aspect of the jose and compared with contralateral more normal appearing brain parenchymal within the left lateral aspect of the jose which demonstrates no abnormal elevated corrected rCBV [...] Nate Benavidez 12/13/2023 9:38 AM Dictation workstation: [id number] Impression 1. Abnormal increased T2 signal in the jose, right greater than left, worrisome for low-grade malignancy such as a glioma. Infectious or inflammatory process cannot be excluded, although this seems unlikely given the absence of enhancement. 2. No acute intracranial hemorrhage, infarction, mass effect or midline shift elsewhere in the brain Assessment/Plan -Shantel has severe cervical stenosis and is now [...] will undergo a new MRI brain at [facility]. -I spent > 40 minutes in face to face consultation to review and discuss the above; 50% of whichor more was dedicated to counseling. Helder Jack MD documented in this [facility]UnOhio[facility] Work Phone: 1(127) 469-976206-27-2024 Instructions* Patient Instructions* Alondra Escamilla RN - 12/13/2023 10:00 AM EDT Your next appointment will be in 5 months. Please schedule your MRI prior to this visit. Please contact [phone] option 5 then option 2 with any questions or concerns. For any scheduling concerns please call [phone] option 1 documented in [facility] Work Phone: 1(611) 210-774806-26-2024 History of Present illness Narrative* Solomon Narayanan PA-C - 12/12/2023 1:00 PM EDT Images from the original note were not included. [facility] Department of Neurological Surgery New Patient Visit History of Present Illness: Shantel Melendez is a 63 y.o. 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 year old [...] as well as had multiple interventions via [facility] including trial ablation which [...] directly. Sincerely, RICH Hernandez PA-C Associate Physician Elementary Substitute Teacher, Neurosurgery Clinical Chief Engineer [employer] [facility] [place] [address] documented in this encounterTwin City Hospital Work Phone: 1(994) 393-309905-17-2024 Instructions* Patient Instructions* Racquel Cole MD - 11/02/2023 10:13 AM EDT Scans and labs in 1 year RTC 1 week after documented in this encounterMedina Hospital05-17-2024 History of Present illness Narrative* Racquel Cole MD - 11/02/2023 9:45 AM EDT Images from the original note were not included. NAME: Shantel Melendez NO.: [id number] DATE OF SERVICE: November 02, 2023 (Curtis) Some elements in this clinic note that are critical to medical decision making have been carefully reviewed and included from a prior clinic note dated: November 03, 2022 (Curtis). Referring Provider: Griselda Hastings, DO Additional Clinicians involved in Shantel Melendez's care: Dr Kimberly Nichole ENT, Dr. 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 Abnormal increased T2 signal in the jose, right greater than left, worrisome for low-grade [...] adenopathy is identified. 10/05/2021 - MRI Brain: [facility] There is T2 and T2 flair hyperintense signal predominantly to the right of midline in the jose but also involving the left anterior jose with extension to the right facial colliculus [...] midline into the left side of the jose. There appears to be a 2 mm [...] to the right of midline in the jose but also involving the left anterior jose with extension to the right facial colliculus [...] respiratory bronchiolitis. 01/30/2019 - Neck dissection at [facility] Base of tongue did note a [...] 2020: Doing well, still smokes, works at [employer]. Reviewed scans and there is no evidence of scarring or progressive disease. He does have chronic lung disease associated with tobacco useand perhaps has bronchiolitis of both upper lobe. He continues regular follow-up with ENT and Dr. Ibarra. Updated Visit, April 15, 2020: Shantel is 59 years old and returns today [...] which included preparing to see the patient, [id number] patient care, completing clinical documentation, performing a medically appropriate examination, counseling and educating the patient/family/caregiver, ordering medications, tests, or p rocedures, independently interpreting results (not separately reported), communicating results to the patient/family/caregiver, and care coordination (not separately reported). Racquel Cole MD, CPE Hematology and Oncology Services Provided at: [facility], [place], [place] Scribe Attestation: This note was scribed by Tanvi Salazar on November 02, 2023 under the direction and supervision of Dr. Racquel Cole. I attest that all of the information documented is correct to the best of my knowledge. Provider Attestation: I, Racquel Cole MD, attest that all information documented by the above scribe is correct, and was supervised by me and under my direction. CC: Griselda Hastings, [address] [place] [phone] [address] Harris [facility] ENT. Dr. Nichole ENT Dr. Ibarra [place] surgery [facility]. documented in this encounterMedina Hospital05-13-2024 Evaluation note* Author Shilpi Lantigua [facility] Authored October 29, 2023 10:32 am Sooner if needed, the ER if concerns,The above note written by Shilpi Lantigua LPN acting as human recorder, note dictated by Dr. Griselda Hastings [facility] Work Phone: [phone]) 626-937705-10-2024 History of Present illness Narrative* Curtis Da [...] SIGNATURE: Curtis Da Silva RN PATIENT NAME: Shantel Melendez DATE: October 26, 2023 TIME: 9:30 AM * Sally Doyle, RT(R) - 10/26/2023 9:45 AM EDT Radiology Service Progress Note PATIENT NAME: Shantel Melendez DATE OF SERVICE: October 26, 2023 [...] PATIENT PRESENTS WITH AN IMPLANTABLE OR ATTACHED ADMINISTRATIVE UNDERWRITER: No RADIOLOGY DEPARTMENT: CT; Exam(s) Completed: Chest and Neck PERIPHERAL IV DATA: Site assessment: Clean,Dry and Intact, Site disposition Discontinued SIGNED BY: RT Craig(R) October 26, 2023 10:07 AM documented in this encounterMedina Hospital04-19-2024 History of Present illness Narrative* Helder Jack MD - 10/05/2023 9:30 AM EDT Patient ID: Shantel Melendez is a 62 y.o. male. Referring [...] hydrocephalus. He saw Dr. Lara at the [facility]. Also pain behind left eye. No RUE sx. On Plavix for PVD- stent in leg 2 months. Past Medical History: Hypercholesterolemia Cervical foraminal stenosis Past Surgical History: History reviewed. No pertinent surgical history. INTERVAL HISTORY (10/05/2023): Shantel Melendez is a 62 yo RH male [...] issues. 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 The ROS is as per documentation in the HPI. Objective BSA: 1.93 meters squared Ht 1.722 m (5' 7.8 ) Wt 77.8 kg (171 lb 9.6 oz) BMI 26.25 kg/m No family history on file. Oncology History No history exists. Shantel Melendez has no history on file for [...] 1. Abnormal increased T2 signal in the jose, right greater than left, worrisome for low-grade malignancy such as a glioma. Infectious or inflammatory process cannot be excluded, although this seems unlikely given the absence of enhancement. 2. No acute intracranial hemorrhage, infarction, mass effect or midline shift elsewhere in the brain Assessment/Plan -Shantel has severe cervical stenosis and is working [...] of whichor more was dedicated to counseling. Helder Jack MD documented in this [facility] Work Phone: 1(648) 530-882404-19-2024 Instructions* Patient Instructions* Adriana Thomas RN - 10/05/2023 9:[address] Jack will present your case at Tumor Board next Sunday. Someone from the office will call you that day or about your plan. Please call us with any questions or concerns at [phone] opt. 5, opt. 2 For scheduling concerns please call [phone] option 1 documented in this encounterTwin City Hospital Work Phone: 1(284) 519-838402-28-2024 Evaluation note* Author Curtis Covarrubias [facility] Authored August 15, 2023 5:19pm The above note written by Serafin Flood acting as human recorder, note dictated by Dr. Griselda Hastings . [facility] Work Phone: 1(651) 490-869702-28-2024 Evaluation note* Author Curtis Olmosolson [facility] Authored August 15, 2023 5:19pm The above note written by Serafin Flood acting as human recorder, note dictated by Dr. Griselda Hastings . Author Shilpi Lantigua [facility] Authored October 29, 2023 10:32 am Sooner if needed, the ER if concerns,The above note written by Shilpi Lantigua LPN acting as human recorder, note dictated by Dr. Griselda Hastings [facility] Work Phone: 1(379) 400-799801-15-2024 Evaluation note* Encounter Date Diagnosis Assessment Notes [...] continue to follow with them as scheduled. [employer] Other 12-14-2023 Evaluation note* Encounter Date Diagnosis Assessment Notes Treatment Notes Treatment Clinical Notes May, PAD (peripheral artery disease) (ICD-10 - I73.9) Patient recently had angioplasty for occlusion of right iliac artery that was discovered by call center dispatcher. He has been doing well since the [...] work before I provide him that consent. [employer] Other 12-13-2023 Evaluation note* Encounter Date Diagnosis [...] I will see him in 3 months. [employer] Other 11-28-2023 Evaluation note* Encounter Date Diagnosis [...] 3 months Apr, Lightheadedness (ICD-10 - R42) [facility] Other 11-20-2023 [facility]Ohio[facility]11-16-[facility] Evaluation note* Encounter Date Diagnosis Assessment [...] questions were addressed and consent was obtained. [employer] Other 11-14-2023 Evaluation note* Encounter Date Diagnosis [...] M54.2) The patient is now following with [facility]. He states he has an upcoming cervical epidural scheduled. 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 Apr, PAD (peripheral artery disease) (ICD-10 - I73.9) Arterial studies ordered by call center dispatcher indicating peripheral artery disease. The patient does report lower extremity pain and heaviness and I recommend it would be beneficial to consult with a vascular specialist. The patient is in agreement, therefore a referral was initiated. A CTA has been ordered by neurologist , appointment pending [facility] scheduling. Apr, Hyperlipidemia (ICD-10 - E78.5) Blood [...] vocies understanding. We will continue to monitor. [employer] Other 10-26-2023 Evaluation note* Encounter Date Diagnosis Assessment Notes Treatment Notes Treatment Clinical Notes Mar, Claudication (ICD-10 - I73.9) [employer] Other 10-25-2023 Evaluation note* Encounter Date Diagnosis [...] 4 weeks Mar, Lightheadedness (ICD-10 - R42) [facility] Other 10-24-2023 Evaluation note* Encounter Date Diagnosis Assessment Notes Treatment Notes Treatment Clinical Notes Mar, Elevated blood pressure reading (ICD-10 - R03.0) [employer] Other 09-28-2023 Evaluation note* Encounter Date Diagnosis [...] infection. Feb, Burning sensation (ICD-10 - R20.8) [employer] Other 09-21-2023 Evaluation note* Encounter Date Diagnosis [...] index finger. We will continue to monitor. [facility] Other 07-13-2023 Hospital Discharge instructions Diet Plan/Instructions [...] * Discharge Physician: : Lima Joseph MD ([id number]) - Anesthesiology, Pain Management * Discharge Physician Phone: : [id number], [facility] [id number] Special Plan/Instructions for Discharge from 12/27/2022 10:26 AM: * Special Instructions : Spoke to patient Wound Care Instruction for Discharge from 12/27/2022 10:26 AM: * Special Instructions : Spoke to patient Arte Manifiesto 06-20-2023 Evaluation note* Encounter Date Diagnosis Assessment [...] sent to the office to be completed. [facility] Other 05-12-2023 History of Present illness Narrative* Sally Doyle RT(R) - 10/27/2022 10:45 AM EDT RADIOLOGY [...] found usingthis link: [email or web address] SIGNATURE: RT Craig(R) PATIENT NAME: Shantel Melendez DATE: October 27, 2022 TIME: 11:55 AM PAGER/CONTACT #: documented in this encounterMedina Hospital04-07-2023 History of Present illness Narrative* RT [...] Head: IAC/CPA SIGNATURE: RT Julio(R) PATIENT NAME: Shantel Melendez DATE: September 22, 2022 TIME: 2:39 PM documented in this encounterMedina Hospital04-05-2023 Miscellaneous Notes* Telephone Encounter - Akash [...] 12:20 PM EDT General Call Caller : Shantel Contact Reason for Call : Pt has follow up questions after most recent visit. Patient requesting return call ? Yes documented in this encounterMedina Hospital03-29-2023 Instructions* Patient Instructions* Kelly Perez PA-C [...] perform on same dariusz. documented in this encounterMedina Hospital03-29-2023 Nurse Note* Antonia Tripathi MA - 09/13/2022 10:55 AM EDT Additional intake questions: Has the patient had fever, nausea, vomiting, diarrhea, constipation, fatigue for > 1 week? Yes, diarrhea ( 3 times in last 24 hours), fatigue, and Provider Notified Does the patient have a decreased appetite? No Does patient want to see a Applications Administrator? No (yes to any of above refer patient to schedulers for dietitian appointment) ) Does patient have any new or increased numbness or tingling of extremities? Yes, left fingers tingling, pain in r calf Is patient interested in fertility information? No Does patient need any prescription refills? No Does patient have an advanced directive in place? No, Patient referred to [facility] Electronically Signed By: Antonia Tripathi MA documented in this encounterMedina Hospital03-29-2023 History of Present illness Narrative* Kelly Perez PA-C - 09/13/2022 10:44 AM EDT This note was created using Cucinialeriter. Subjective Shantel Melendez is a 61 year old male [...] or pronator drift. Coordination: Romberg sign negative. Ywhlij-Gmzt-Bnnwcb Test normal. Gait: Gait abnormal. Comments: Slightly [...] which included preparing to see the patient, uczs-hw-hrzf patient care, completing clinical documentation, obtaining and/or reviewing separately obtained history, performing a medically appropriate examination, counseling and educating the pat ient/family/caregiver, ordering medications, tests, or procedures, communicating with other HCPs (not separately reported), independently interpreting results (not separately reported), communicatingresults to the patient/family/caregiver, and care coordination (not separately reported). documented in this encounterMedina Hospital03-16-2023 Evaluation note* Encounter Date Diagnosis Assessment [...] her mid twenties. He will see the RESEARCH PROGRAM MANAGER at Dr. Cadena's office today, and will see the [facility] 09/13/22. I do feel pt needs his FMLA extended until 12/16/22. I encouraged him to continue to follow with these doctors, and we will continue to monitor. 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 I did prescribe the above medication and encouraged pt to increase fluid intake, throat lozenges or gargle with mouth wash as needed. Pt is to also take OTC pain medication and fever reducers as needed. [facility] Other 01-11-2023 Evaluation note* Encounter Date Diagnosis Assessment Notes Treatment Notes Treatment Clinical Notes Jun, Other complicated headache syndrome (ICD-10 - G44.59) [employer] Other 12-09-2022 Evaluation note* Encounter Date Diagnosis [...] check on him again in 1 month. [employer] Other 10-30-2022 Hospital Discharge instructions Additional Instructions [...] week to see how you are doing. [facility] Work Phone: 1(359) 372-609010-10-2022 Miscellaneous Notes* Telephone Encounter - Racquel Cole MD - 03/27/2022 3:54 PM EDT Good with me * Telephone Encounter - Asya Reynolds RN - 03/27/2022 2:17 PM EDT Informed patient of your recommendations. He states that he is seeing neurology in [place] and they do not feel he needs to see NS at this point. They are treating him for occipital neuralgia currently. Patient plans to cancel NS appointment. Asya Reynolds RN * Telephone Encounter - Racquel Cole MD - 03/27/2022 2:00 PM EDT I don't quite remember what the discussion was - and Helene is gone - I think still worthwhile seeing NS. - not sure what prompted the call 5 months later.... * Telephone Encounter - Asya Reynolds RN - 03/27/2022 12:13 PM EDT Patient got a text over the weekend about an appointment with a [facility] neurosurgeon. He has not seen you since 10/2021. He states st that time you did not see the need for a neurosurgeon as his tumor wastoo small. Now he all of the sudden has an appointment with this [facility] neurosurgeon and is confused. Can you review and advise as to this appointment with the neurosurgeon. Asya Reynolds RN documented in this encounterMedina Hospital09-29-2022 Miscellaneous Notes* Telephone Encounter - Pamela Nascimento APRN.CNP - 03/16/2022 2:51 PM EDT Time Frame: Next available Provider: Intra-axial neurosurgeon & Neuro-Oncology (same day) Referring: Racquel Cole MD Please instruct patient to hand carry/ upload images prior to appt Dx: Low grade glioma Patient: Shantel Melendez Address: Shantel Melendez [id number] [place] [address] Per Triage: Shantel Melendez is a 61 year old male that requests evaluation of previously diagnosed possible low grade glioma. Patient expectations: Second opinion Tumor Specifics: Location: brain Previous Evaluations: MRI w/wo contrast (10/05/21): 10/05/2021 MRI Brain [facility] Impression: 1. There is T2 and T2 flair hyperintense signal predominantly to the right of midline in the jose but also involving the left anterior jose with extension to the right facial colliculus [...] midline into the left side of the jose. 2. There appears to be a 2 [...] predominantly to the right of midline inthe jose but also involving the left anterior jose with extension to the right facial colliculus and base of the right middle cerebellar peduncle. No accompanying diffusion restriction is noted. There is no accompanying abnormal postcontrast enhancement. Previous Treatments: N/A Impression: As above. Pamela Nascimento APRN.CNP March 16, 2022 * Telephone Encounter - Ivelisse Guan Coord - 03/16/2022 12:26 PM EDT MD Racquel Gomez MD Future Order Information Expires 10/13/22 Associated Diagnoses Glioma of brain (HCC) [C71.9] Reason for Exam Priority: Routine Dx: Glioma of brain (HCC) [C71.9 (ICD-10-CM)] Order Questions Question Answer [facility] Brain Tumor [facility] Epic access? Yes documented in this encounterMedina Hospital09-29-2022 Evaluation note* Encounter Date Diagnosis Assessment [...] see if this gives him some relief [employer] Other 08-15-2022 Evaluation note* Encounter Date Diagnosis [...] - G93.9) Patient had another MRI at [facility]. We are awaiting for the [...] Patient has recently started following with Dr. Oziel Cadena, they are planning to do another spinal punture in the near future. Patient is scheduled to follow up again next week. We are awaiting for [facility] to fax over the consult and MRI results. Jan, Neck pain (ICD-10 - M54.2) The patients neck pain is persistant but the headache has improved with a medication change. Discussed with Dr. Cadena his persistent neck pain, may need MRI of his neck and/or EMG. Due to his multiple other medications did hold off on any pain medications. [employer] Other 07-11-2022 Evaluation note* Encounter Date Diagnosis [...] blood pressure was elevated upon check in. [employer] Other 06-20-2022 Evaluation note* Encounter Date Diagnosis [...] rule out other causes of his symptoms. [employer] Other 05-24-2022 Evaluation note* Encounter Date Diagnosis [...] will complete the necessary medical disability forms. 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 Narayan, and he is now referring on to [facility]. Reviewed consult note [...] this medication. Will continue to follow up [employer] Other 05-12-2022 History of Present illness Narrative* Racquel Cole MD - 10/27/2021 5:05 PM EDT Images from the original note were not included. NAME: Shantel Melendez CLINIC NO.: [id number] DATE OF SERVICE: October 27, 2021 Some elements in this clinic note that are critical to medical decision making have been carefully reviewed and included from a prior clinic note dated: October 13, 2021 Referring Provider: Griselda Hastings, DO Additional Clinicians involved in Shantel Melendez's care: Dr Kimberly Nichole ENT, Dr. Ibarra [place] surgery [facility] AMBULATORY TELEPHONE VISIT Shantel Melendez has consented to this telephone encounter. 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 TREATMENT TO DATE: . 01/30/19 He had a neck dissection at [facility] HPI: Updated Visit, October 27, 2021: [...] IVCON, CBC + DIFF, COMP METABOLIC PANEL Racquel Cole MD, CPE [place], [place] CC: Griselda Hastings, DO [address] [id number] [address] Kimberly NEW[place] ENT[address] Dr[address] Nichole ENT Dr. Ibarra [place] surgery [facility]. documented in this encounterMedina Hospital05-09-2022 Evaluation note* Encounter Date Diagnosis Assessment [...] him on to see Dr. Jonny Vigil. [facility] [employer] Other 05-04-2022 Miscellaneous Notes* Telephone Encounter - Haily Jovel [facility] - 10/19/2021 12:56 PM EDT Called [facility] Neuro Office spoke with Leslee. She states they have received patient records/referral and have patient scheduled to see Dr Narayan on 10/24. Haily Jovle [facility] * Telephone Encounter - Asya Gramajo [facility] - 10/18/2021 10:34 AM EDT Records faxed. * Telephone Encounter - Haily Jovel [facility] - 10/13/2021 12:24 PM EDT Noelle: Information ready for you. Haily Roth Pss * Telephone Encounter - Antonia Mcguire - 10/13/2021 10:33 AM EDT Referral to neurosurgery - Dr. Narayan or [facility] Noelle/Layo: Can you please refer patient and follow up? Thanks! Antonia Mcguire documented in this encounterMedina Hospital04-28-2022 History of Present illness Narrative* Racquel Cole MD - 10/13/2021 10:19 AM EDT Images from the original note were not included. NAME: Shantel Melendez [place] CLINIC NO.: [id number] DATE OF SERVICE: October 13, 2021 Some elements in this clinic note that are critical to medical decision making have been carefully reviewed and included from a prior clinic note dated:October 14, 2020 Referring Provider: Griselda Hastings, DO Additional Clinicians involved in Shantel Melendez's care: Dr Kimberly Nichole ENT, Dr. 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 Reviewed scans and there is no evidence of scarring or progressive disease. He does have chronic lung disease associated with tobacco useand perhaps has bronchiolitis of both upper lobe. He continues regular follow-up with ENT and Dr. Ibarra. Updated Visit, April 15, 2020: Shantel is 59 years old and returns today [...] adenopathy is identified. 4. 10/05/2021 MRI Brain [facility] Impression: 1. There is T2 and T2 flair hyperintense signal predominantly to the right of midline in the jose but also involving the left anterior jose with extension to the right facial colliculus [...] midline into the left side of the jose. 2. There appears to be a 2 [...] predominantly to the right of midline inthe jose but also involving the left anterior jose with extension to the right facial colliculus [...] cell carcinoma of head and neck (HCC) Racquel Cole MD, CPE [place], [place] CC: Griselda Hastings, DO [address] [phone] [address] [facility] Nichole ENT Dr. Ibarra CT surgery [facility]. documented in this encounterMedina Hospital04-21-2022 Miscellaneous Notes* Telephone Encounter - Racquel Cole MD - 10/06/2021 4:05 PM EDT [...] Hastings thinks pt may need referral to [facility] Neuro but wanted to let Dr Mcgregor review and decide next steps. Asya Kumar RN documented in this encounterMedina Hospital04-21-2022 History of Present illness Narrative* Marilyn Hernandez, JANEEN - 10/06/2021 8:00 AM EDT Radiology Service [...] Intact SIGNATURE: Marilyn Hernandez RN PATIENT NAME: Shantel Melendez DATE: October 06, 2021 TIME: 8:09 AM * Sally Doyle RT(R) - 10/06/2021 8:00 AM EDT Radiology Service Progress Note PATIENT NAME: Shantel Melendez DATE OF SERVICE: October 06, 2021 [...] 06, 2021 8:07 AM [facility] Encounter Date Diagnosis Assessment [...] to continue with monitoring diet and exercise. [employer] Other 03-28-2022 Evaluation note* Encounter Date Diagnosis Assessment Notes Treatment Notes Treatment Clinical Notes Aug, Anxiety and depression (ICD-10 - F41.8) [employer] Other 01-13-2022 Evaluation note* Encounter Date Diagnosis Assessment Notes Treatment Notes Treatment Clinical Notes Jun, Sinusitis (ICD-10 - J32.9) I did prescribe the above medications and work note provided. [employer] Other 01-12-2022 Evaluation note* Encounter Date Diagnosis Assessment Notes Treatment Notes Treatment Clinical Notes Jun, Sinus pressure (ICD-10 - J34.89) Patient advised of negative results. Encouraged him to call if symtpoms persist or worsen, he verbalized understanding. [employer] Other 11-02-2021 Evaluation note* Encounter Date Diagnosis Assessment Notes Treatment Notes Treatment Clinical Notes Apr, Sinus congestion (ICD-10 - R09.81) [employer] Other 10-28-2021 Evaluation note* Encounter Date Diagnosis [...] Encouraged patient to continue with their efforts. [employer] Other 12-01-2016 History general Narrative - Reported* [...] surgery 02/04 19 Hospitalization History see above [employer] Other 12-01-2016 History general Narrative - Reported* [...] 02/04 19 Surgical History Spinal tap at [facility] 11/07/2021 Hospitalization History see above [employer] Other 12-01-2016 History general Narrative - Reported* [...] 02/04 19 Surgical History Spinal tap at [facility] 11/07/2021 Hospitalization History see above [employer] Other 12-01-2016 History general Narrative - Reported* [...] dissection 01/2019 Surgical History Spinal tap at [facility] 11/07/2021 Hospitalization History see above [employer] Other 12-01-2016 History general Narrative - Reported* [...] dissection 01/2019 Surgical History Spinal tap at [facility] 11/07/2021 Surgical History LP at [facility] 08/2022 Hospitalization History see above [employer] Other 12-01-2016 History general Narrative - Reported* [...] dissection 01/2019 Surgical History Spinal tap at [facility] 11/07/2021 Surgical History LP at [facility] 08/2022 Hospitalization History see above [employer] Other 12-01-2016 History general Narrative - Reported* [...] dissection 01/2019 Surgical History Spinal tap at [facility] 11/07/2021 Surgical History LP at [facility] 08/2022 Surgical History angioplasty right iliac artery 04/2023 Hospitalization History see above [employer] Other 05-19-2009 History of Present illness Narrative* [...] * MRI showed abnormal signal in the jose and he sent to me in consultation. * He has mild headaches but denies weakness numbness or seizure. He saw Dr. Ba a neurologist in [facility] [place]. * He describes his vision as seeing 1-1/2 . He describes this does not seem quite to but finding a time lab between moving his eyes and having the visual change. [facility] Work Phone: chitx complaint+Reason for visit Narrative* Chief Complaint 2 month 2 month f/u Reason for Visit Cervical spondylosis History of COVID-19 Nicotine dependence with current use SCC (squamous cell carcinoma) Nicotine dependence with current use Osteoarthritis cervical spine [facility] Work Phone: Clinical Notes [facility] Evaluation + Plan note 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 Malignant neoplasm of head, face, and neck Lung nodules Other nonspecific abnormal finding of lung field Malignant neoplasm of head, face and neck (HCC) Malignant neoplasm of head, face, and neck documented in [facility] noteNo InformationNort [employer] Other Evaluation noteNo assessment information available [facility] Work Phone: Evaluation note* Diagnosis Onset Date Resolution Status Migraine acute [facility] Work Phone: Evaluation note* Diagnosis NPH (normal pressure hydrocephalus) (HCC)- Primary Idiopathic normal pressure hydrocephalus (INPH) documented in this encounter [facility] note* Diagnosis 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HCC)- Primary NPH (normal pressure hydrocephalus) (HCC) Idiopathic normal pressure hydrocephalus (INPH) documented in this encounter [facility] note* Diagnosis 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HCC) NPH (normal pressure hydrocephalus) (HCC) Idiopathic normal pressure hydrocephalus (INPH) documented in this encounter [facility] note* Diagnosis Onset Date Resolution Status Anxiety and depression acute Essential hypertension acute Hyperlipidemia acute Osteoarthritis cervical spine acute PAD (peripheral artery disease) acute [facility] Work Phone: Evaluation note* Diagnosis 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 [facility] Work Phone: Evaluation note* Diagnosis 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 Griselda Hastings. 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) Malignant neoplasm of head, face, and neck [facility] Diagnosis Malignant neoplasm of head, face and neck (HCC) Malignant neoplasm of head, face, and neck Lung nodules Other nonspecific abnormal finding of lung field 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) Malignant neoplasm of head, face, and neck Localized swelling, mass or lump of neck Swelling, mass, or lump in head and neck [facility] Diagnosis Cervical radiculopathy- Primary Brachial neuritis or radiculitis nos Cervical radiculopathy Brachial neuritis or radiculitis nos Senile osteoporosis Senile osteoporosis documented in this encounter [facility] Work Phone: [phone] note* Diagnosis Cervical radiculopathy- Primary Brachial neuritis or radiculitis nos Status post cervical spinal fusion Arthrodesis status Acute postoperative pain Other acute postoperative pain Muscle spasms of neck documented in this encounter [facility] Work Phone: [phone] note* Diagnosis Other nerve root and plexus disorders- Primary Cervical paraspinal muscle spasm Spasm of muscle Cervical stenosis of spinal canal Spinal stenosis in cervical region [facility]* Diagnosis Cervical radiculopathy- Primary Brachial neuritis or radiculitis nos Occipital neuralgia of left side Balance problem Abnormality of gait documented in this encounter [facility] Work Phone: [phone] note* 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 [facility] Work Phone: [phone] note* 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 [facility] Work Phone: [phone] note* Diagnosis Cervical radiculopathy- Primary Brachial neuritis or radiculitis nos Senile osteoporosis documented in this encounter [facility] Work Phone: [phone] note* Diagnosis Cervical radiculopathy Brachial neuritis or radiculitis nos Senile osteoporosis Cervical radiculopathy Brachial neuritis or radiculitis nos Senile osteoporosis Cervical radiculopathy Brachial neuritis or radiculitis nos Senile osteoporosis documented in this encounter [facility] Work Phone: Evaluation note* Diagnosis Cervical radiculopathy Brachial neuritis or radiculitis nos Senile osteoporosis Cervical radiculopathy Brachial neuritis or radiculitis nos Cervical radiculopathy Brachial neuritis or radiculitis nos Senile osteoporosis documented in this encounter [facility] Work Phone: Evaluation note* Diagnosis Cervical radiculopathy Brachial neuritis or radiculitis nos Senile osteoporosis Cervical radiculopathy Brachial neuritis or radiculitis nos Cervical radiculopathy Brachial neuritis or radiculitis nos Senile osteoporosis documented in this encounter [facility] Work Phone: Evaluation note* Diagnosis Status post cervical spinal fusion- Primary Arthrodesis status documented in this encounter [facility] Work Phone: Evaluation note* Diagnosis Nerve root and plexus disorder, unspecified- Primary [facility] Diagnosis Nerve root and plexus disorder, unspecified- Primary [facility] Diagnosis Nerve root and plexus disorder, unspecified- Primary [facility] Diagnosis Status post cervical spinal fusion- Primary Arthrodesis status documented in this encounter [facility] Work Phone: Evaluation note* Diagnosis 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 Malignant neoplasm of head, face, and neck [facility] 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) Malignant neoplasm of head, face, and neck [facility] Diagnosis Nerve root and plexus disorder, unspecified- Primary Acute pain of left shoulder [facility] Diagnosis Melanocytic nevus of trunk- Primary Benign neoplasm of skin of trunk, except scrotum Seborrheic keratosis Inflamed seborrheic keratosis Actinic keratosis Capillary angioma Nevus, non-neoplastic History of SCC (squamous cell carcinoma) of skin Personal history of other malignant neoplasm of skin documented in [facility] encounter [facility]* Diagnosis Nerve root and plexus disorder, unspecified- Primary Acute pain of left shoulder documented in this encounter [facility] Healthcare[facility]ospital Discharge instructions Additional Instructions Obtain Elsy pot and perform nasal irrigations [facility] a [facility] Work Phone: Hospital Discharge instructions Additional Instructions Please return to emergency department for any new or worrisome symptoms including any chest pain, shortness of breath, vomiting, fever. Take all antibiotics even if you start feeling better.[facility] Work Phone: Hospital Discharge instructions Additional Instructions Push fluids Zofran for nausea vomiting Follow-up with the GI specialist as discussed for possible colonoscopy Return here if any problems persist or worsen If you are able to collect a urine specimen take it to the lab.[facility] Work Phone: Reason for referral (narrative)* Diagnostic Procedure Only (Routine) - Closed Specialty Diagnoses / Procedures Referred By Contac dimitry Referred To Contact CT IMAGING Diagnoses Malignant neoplasm of head, face and neck (HCC) Lung nodules 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) Localized swelling, mass or lump of neck Procedures CT CHEST W IVCON CAT SCAN OF CHEST CONTRAST Racquel Cole MD [address] [place] [address] [place] [address] [place] [address] Referral ID Status Reason Start Date Expiration Date V isits Requested Visits Authorized [id number] Closed Auto-Generate d Referral 09/23/2021 11/22/2021 1 1 * Diagnostic Procedure Only (Routine) - Closed Specialty Diagnoses / Procedures Referred By Contac Referred To Contact CT IMAGING Diagnoses Malignant neoplasm of head, face and neck (HCC) Lung nodules 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) Localized swelling, mass or lump of neck Procedures CT NECK SOFT TISSUE W IVCON CONTRAST CAT OF NECK TISSUE Racquel Cole MD [address] [place] [address] [place] [address] Referral ID Status Reason Start Date Expiration Date V isits Requested Visits Authorized [id number] Closed Auto-Generate d Referral 09/23/2021 11/22/2021 1 1 [facility]No reason for referral [facility]: Reason for visit Narrative* Auth/Cert Specialty Diagnoses / Procedures Referred By Roverto moraes Referred To Contact Diagnoses Cervical radiculopathy Senile osteoporosis Cervical radiculopathy [M54.12] Senile osteoporosis [M81.0] Procedures WA ARTHRD ANT INTERBODY DECOMPRESS CERVICAL BELW C2 WA ARTHRD ANT INTERBODY DECOMPRESS CERVICAL BELW C2 WA ARTHRD ANT INTERDY CERVCL BELW C2 EA ADDL NTRSPC WA ALLOGRAFT FOR SPINE SURGERY ONLY STRUCTURAL WA MICROSURG TQS REQ USE OPERATING MICROSCOPE Fusion Spine Anterior Cervical and Discectomy C5-6, C6-7 Doretha Harris MD [address] [facility], [facility] [address] [place] [address] Phone: tel: fax: [facility] [place] [address] [place] [address] fax: Referral ID Status Reason Start Date Expiration Date Visits Re quested Visits Authorized [id number] 1 1 [facility] Work Phone: Reason for visit Narrative* Injection (Routine) - Closed Specialty Diagnoses / Procedures Referred By Roverto moraes Referred To Contact Neurology Diagnoses Acute pain of left shoulder Procedures WA OFFICE/OUTPATIENT NEW HIGH MDM 60 MINUTES Oziel Cadena MD [address] [facility] [address], [place] [address] Phone: tel: fax: Oziel Cadena MD [address] [place] [address] Phone: tel: fax: Referral ID Status Reason Start Date Expiration Date V isits Requested Visits Authorized [id number] Closed Perform Procedure 11/12/2024 05/18/2025 1 1 [...] Documents on File Type Date Recorded 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 Living Will 10/05/2023 9:39 AM Documents on File Type Date Recorded 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 Living Will 10/05/2023 9:39 AM [...] (HCC) Procedures CONSULT TO NEUROSURGERY OFFICE/OUTPATIENT [facility] 60-74 MINUTES Racquel Cole MD [address] [place] [address] [place] [address] Referral ID Status Reason Start Date Expiration Date Visits Requested Visits Authorized [id number] Authorized PCP Requested Referral 10/13/2021 10/13/2022 1 1 Specialty Diagnoses / Procedures Referred By Contac t Referred To Contact CT IMAGING Diagnoses Lung nodules Procedures CT CHEST W IVCON DIAGNOSTIC COMPUTED TOMOGRAPHY THORAX W/CONTRAST Racquel Cole MD [address] [place] [address] [place] [address] Ct Imaging Referral ID Status Reason Start Date Expiration Date Visits Requested Visits Authorized [id number] Pending Review Auto-Generat ed Referral 10/30/2022 11/29/2022 1 1 Specialty Diagnoses / Procedures Referred By Contac t Referred To Contact CT IMAGING Diagnoses Malignant neoplasm of head, face and neck (HCC) Procedures CT NECK SOFT TISSUE W IVCON CT SOFT TISSUE NECK W/CONTRAST MATERIAL Racquel Cole MD [address] [place] [address] [place] [address] Ct Imaging Referral ID Status Reason Start Date Expiration Date Visits Requested Visits Authorized [id number] Pending Review Auto-Generat ed Referral 10/30/2022 11/29/2022 1 1 Reason *FU 10/31 Evaluate and Treat Brainstem Lesion 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) Referral Organization [facility] urosurgery Referring Provider First Name Sheng Referring Provider Last Name Wyatt Referring Provider Specialty Neurosurger y Referred Organization [facility] Referred Provider Jonny Vigil Referred Address [address] [facility] [place], [place],[address] Referred Provider Specialty Neurological Surgery Referral Priority Routine General Notes Linnea Alvarado 022 02:09:54 PM >Received and fax referral today Reason consult and treat (p t is willing to see him in [place], if not then will see at 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) Diagnosis 2 Cervical pain (neck) (M54.2) Diagnosis 3 Pressure in head (R5 1.9) Referral Organization [facility] [place] Referring Provider First Name Griselda Referring Provider Last Name Darling Referring Provider Specialty Family Prac henny Referred Organization [facility] Referred Provider Oziel Cadena Referred Address [address] [place], [place],[address] Referral Priority Routine Specialty Diagnoses / Procedures Referred By Roverto moraes Referred To Contact MR IMAGING Diagnoses 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HCC) Procedures MRI BRAIN WO/W IVCON MRI BRAIN BRAIN STEM W/O W/CONTRAST MATERIAL Kelly Perez, BILLY [address] [email or web address] [address] Mr Imaging Referral ID Status Reason Start Date Expiration Date Visits Requested Visits Authorized [id number] Authorized Auto-Generat ed Referral 09/20/2022 10/20/2023 1 1 Referral ID Status Reason Start Date Expiration Date V isits Requested Visits Authorized [id number] Closed Auto-Generate d Referral 09/20/2022 10/20/2023 1 1 Reason pt requesting n ot Dr. Verma, but can see other providers from that group evaluate and treat tinnitus and balance issues Diagnosis 1 Tinnitus of both ear s (H93.13) Diagnosis 2 Balance disorder (R2 6.89) Referral Organization [facility] Cardiology Referring Provider First Name Lilliam Referring Provider Last Name Kamla Referring Provider Specialty Cardiovascu lar Disease Referred Organization [facility] Referred Provider Manuela Ballesteors Referred Address ,[place], [place],[address] Referred Provider Specialty Ear, Nose an d Throat Referral Priority Routine General Notes Yessica Brown 12:40:36 PM >received today, pt has medicaid insurance, will send to Dr. Ballesteros, attachments made, waiting for notes to be locked Reason consult and treat Diagnosis 1 PAD (peripheral arnie ry disease) (I73.9) Referral Organization [facility] [place] Referring Provider First Name Griselda Referring Provider Last Name Darling Referring Provider Specialty [facility] Prac henny Referred Organization [facility] Vascular Surge ry Referred Provider Filipe Hess Referred Address [address] [place] [address],[place] [address],[place], [place],[address] Referred Provider Specialty Vascular Abdirahman yvon Referral Priority Routine General Notes Linnea Alvarado 023 11:58:24 AM >Received today and sent P2P Specialty Diagnoses / Procedures Referred By Contac t Referred To Contact CT IMAGING Diagnoses 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) Procedures CT CHEST W IVCON DIAGNOSTIC COMPUTED TOMOGRAPHY THORAX W/CONTRAST Racquel Cole MD [address] [place] [address] [place] [address] [place] [address] Referral ID Status Reason Start Date Expiration Date Visits Requested Visits Authorized [id number] Authorized Auto-Generat ed Referral 11/01/2024 12/01/2024 1 1 Specialty Diagnoses / Procedures Referred By Contac t Referred To Contact CT IMAGING Diagnoses 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) Procedures CT NECK SOFT TISSUE W IVCON CT SOFT TISSUE NECK W/CONTRAST MATERIAL Racquel Cole MD [address] [place] [address] [place] [address] [place] [address] Referral ID Status Reason Start Date Expiration Date Visits Requested Visits Authorized [id number] Authorized Auto-Generat ed Referral 11/01/2024 12/01/2024 1 1 Referral ID Status Reason Start Date Expiration Date V isits Requested Visits Authorized [id number] Closed Auto-Generate d Referral 10/26/2023 06/17/2024 1 1 Referral ID Status Reason Start Date Expiration Date V isits Requested Visits Authorized [id number] Closed Auto-Generate d Referral 10/26/2023 06/17/2024 1 1 Specialty Diagnoses / Procedures Referred By Contac t Referred To Contact CT IMAGING Diagnoses Lung nodules Procedures CT CHEST W IVCON DIAGNOSTIC COMPUTED TOMOGRAPHY THORAX W/CONTRAST Racquel Cole MD [address] [place] [address] [place] [address] [place] [address] Referral ID Status Reason Start Date Expiration Date V isits Requested Visits Authorized [id number] Closed Auto-Generate d Referral 10/30/2022 11/29/2022 1 1 Specialty Diagnoses / Procedures Referred By Contac t Referred To Contact CT IMAGING Diagnoses Malignant neoplasm of head, face and neck (HCC) Procedures CT NECK SOFT TISSUE W IVCON CT SOFT TISSUE NECK W/CONTRAST MATERIAL Racquel Cole MD [address] [place] [address] [place] [address] [place] [address] Referral ID Status Reason Start Date Expiration Date V isits Requested Visits Authorized [id number] Closed Auto-Generate d Referral 10/30/2022 11/29/2022 1 1 Specialty Diagnoses / Procedures Referred By Contac t Referred To Contact Radiology 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 [place] [address] [place] [address] Referral ID Status Reason Start Date Expiration Date Visits Requested Visits Authorized [id number] Pending Review Perform Procedure 12/13/2023 12/12/2024 1 1 Specialty Diagnoses / Procedures Referred By Contac t Referred To Contact Radiology 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 tumor perfusion protocol w and wo IV contrast Shimon Heaton PA-C [address] [place] [address] Referral ID Status Reason Start Date Expiration Date Visits Requested Visits Authorized [id number] Authorized Perform Procedure 10/24/2023 10/23/2024 1 1 Specialty Diagnoses / Procedures Referred By Contac t Referred To Contact Radiology Diagnoses Cervical radiculopathy Procedures XR cervical spine complete 6+ views Doretha Harris MD [address] [facility], [address] [address] Referral ID Status Reason Start Date Expiration Date Visits Requested Visits Authorized [id number] Authorized Perform Procedure 01/03/2024 01/02/2025 1 1 Specialty Diagnoses / Procedures Referred By Contac t Referred To Contact Radiology Diagnoses Senile osteoporosis Procedures XR DEXA bone density axial skeleton w VFA Doretha Harris MD [address] [facility], [address] [address] Referral ID Status Reason Start Date Expiration Date Visits Requested Visits Authorized [id number] Pending Review Perform Procedure 01/03/2024 01/02/2025 1 1 Specialty Diagnoses / Procedures Referred By Contac t Referred To Contact Diagnoses Cervical radiculopathy Senile osteoporosis Procedures ECG 12 lead Doretha Harris MD [address] [facility], [address] [address] Referral ID Status Reason Start Date Expiration Date V isits Requested Visits Authorized [id number] Authorized 01/09/2024 01/08/2025 1 1 Specialty Diagnoses / Procedures Referred By Contac t Referred To Contact Radiology Diagnoses Cervical radiculopathy Procedures XR DEXA bone density Doretha Harris MD [address] [facility], [facility] [address] [place] [address] Referral ID Status Reason Start Date Expiration Date Visits Requested Visits Authorized [id number] Authorized Perform Procedure 01/08/2024 01/07/2025 1 1 [...] section and content) DATE CREATED AUTHOR 08/01/2019 [facility] DATE CREATED AUTHOR AUTHOR'S ORGANIZ ATION 11/05/2021 [employer] DATE CREATED AUTHOR AUTHOR'S ORGANIZ ATION 01/19/2022 [facility] dical Specialist DATE CREATED AUTHOR AUTHOR'S ORGANIZ ATION 10/02/2022 [facility] DATE CREATED AUTHOR AUTHOR'S ORGANIZ ATION 12/25/2022 [facility] DATE CREATED AUTHOR AUTHOR'S ORGANIZ ATION 08/03/2023 [facility] DATE CREATED AUTHOR AUTHOR'S ORGANIZ ATION 02/13/2024 [facility] DATE CREATED AUTHOR AUTHOR'S ORGANIZ ATION 10/27/2024 [facility] DATE CREATED AUTHOR AUTHOR'S ORGANIZ ATION 11/13/2024 [facility] DATE CREATED AUTHOR AUTHOR'S ORGANIZ ATION 12/29/2024 [facility] DATE CREATED AUTHOR AUTHOR'S ORGANIZ ATION 01/01/2025 [facility] DATE CREATED AUTHOR AUTHOR'S ORGANIZ ATION 01/03/2025 [facility] DATE CREATED AUTHOR AUTHOR'S ORGANIZ ATION 02/06/2025 [facility] dical Specialists EPIC DATE CREATED AUTHOR AUTHOR'S ORGANIZ ATION 02/14/2025 [facility] DATE CREATED AUTHOR AUTHOR'S ORGANIZ ATION 02/17/2025 [facility] Source Comments (unrecognize d section and content) In the event this informatio n is protected by the Federal Confidentiality of Alcohol and Drug Abuse Patient Records regulations: The Federal rules restrict any use of the information to criminally investigate or prosecute any alcohol or drug abuse patient.[facility] Hospital[facility] the event this information is protected by the Federal Confidentiality of Alcohol and Drug Abuse Patient Records regulations: The Federal rules restrict any use of the information to criminally investigate or prosecute any alcohol or drug abuse patient.[facility] HospitalIn the event this information is protected by the Federal Confidentiality of Alcohol and Drug Abuse Patient Records regulations: The Federal rules restrict any use of the information to criminally investigate or prosecute any alcohol or drug abuse patient.[facility] HospitalIn the event this information is protected by the Federal Confidentiality of Alcohol and Drug Abuse Patient Records regulations: The Federal rules restrict any use of the information to criminally investigate or prosecute any alcohol or drug abuse patient.[facility] HospitalIn the event this information is protected by the Federal Confidentiality of Alcohol and Drug Abuse Patient Records regulations: The Federal rules restrict any use of the information to criminally investigate or prosecute any alcohol or drug abuse patient.[facility] HospitalIn the event this information is protected by the Federal Confidentiality of Alcohol and Drug Abuse Patient Records regulations: The Federal rules restrict any use of the information to criminally investigate or prosecute any alcohol or drug abuse patient.[facility] HospitalIn the event this information is protected by the Federal Confidentiality of Alcohol and Drug Abuse Patient Records regulations: The Federal rules restrict any use of the information to criminally investigate or prosecute any alcohol or drug abuse patient.[facility] HospitalIn the event this information is protected by the Federal Confidentiality of Alcohol and Drug Abuse Patient Records regulations: The Federal rules restrict any use of the information to criminally investigate or prosecute any alcohol or drug abuse patient.[facility] HospitalIn the event this information is protected by the Federal Confidentiality of Alcohol and Drug Abuse Patient Records regulations: The Federal rules restrict any use of the information to criminally investigate or prosecute any alcohol or drug abuse patient.[facility] HospitalIn the event this information is protected by the Federal Confidentiality of Alcohol and Drug Abuse Patient Records regulations: The Federal rules restrict any use of the information to criminally investigate or prosecute any alcohol or drug abuse patient.[facility] HospitalIn the event this information is protected by the Federal Confidentiality of Alcohol and Drug Abuse Patient Records regulations: The Federal rules restrict any use of the information to criminally investigate or prosecute any alcohol or drug abuse patient.[facility] HospitalIn the event this information is protected by the Federal Confidentiality of Alcohol and Drug Abuse Patient Records regulations: The Federal rules restrict any use of the information to criminally investigate or prosecute any alcohol or drug abuse patient.[facility] HospitalIn the event this information is protected by the Federal Confidentiality of Alcohol and Drug Abuse Patient Records regulations: The Federal rules restrict any use of the information to criminally investigate or prosecute any alcohol or drug abuse patient.[facility] HospitalIn the event this information is protected by the Federal Confidentiality of Alcohol and Drug Abuse Patient Records regulations: The Federal rules restrict any use of the information to criminally investigate or prosecute any alcohol or drug abuse patient.[facility] HospitalIn the event this information is protected by the Federal Confidentiality of Alcohol and Drug Abuse Patient Records regulations: The Federal rules restrict any use of the information to criminally investigate or prosecute any alcohol or drug abuse patient.[facility] Reason for Visit (unrecogniz ed section and content) Reason Comments Results Reason Comments Head and Neck Cancer Specialty Diagnoses / Procedures Referred By Contac t Referred To Contact Hematology/Oncology / HEMATOLOGY/ONCOLOGY Diagnoses Follow-up examination 1 year follow up LABS WITH CT Procedures EST PATIENT Racquel Cole MD [facility] [place] [address] Racquel Cole MD [address] [place] [address] [place] [address] Referral ID Status Reason Start Date Expiration Date Visits Re quested Visits Authorized [id number] Closed 10/13/2021 06/17/2022 1 1 Reason Comments Referral Information Neurosurgery Reason Comments Established Patient Specialty Diagnoses / Procedures Referred By Contac t Referred To Contact Hematology/Oncology / HEMATOLOGY/ONCOLOGY Diagnoses 2 week phone follow up [phone] Procedures PHYS/QHP TELEPHONE EVALUATION 5-10 MIN PROVIDER SPECIALTY PHONE CALL Racquel Cole MD [address] [place] [address] Racquel Cole MD [facility] [address] Referral ID Status Reason Start Date Expiration Date Visits Re quested Visits Authorized [id number] Closed 10/27/2021 06/17/2022 1 1 Reason Comments Triage Internal Referral--o ld Reason Comments Appointment Reason Comments New Patient Specialty Diagnoses / Procedures Referred By Contac t Referred To Contact Neurology / BRAIN TUMOR Diagnoses Hydrocephalus (HCC) Hydrocephalus Procedures OFFICE/OUTPATIENT NEW MODERATE MDM 45-59 MINUTES NEW SURGICAL Oziel Cadena MD [address] [place] [id number] Kelly Peerz PA-C [address] [place] [address] Referral ID Status Reason Start Date Expiration Date Visits Re quested Visits Authorized [id number] Closed 09/13/2022 06/17/2023 1 1 Reason Comments Patient Question Reason Comments Radiology MRI Specialty Diagnoses / Procedures Referred By Contac t Referred To Contact MR IMAGING Diagnoses 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HCC) Procedures MRI BRAIN WO/W IVCON MRI BRAIN BRAIN STEM W/O W/CONTRAST MATERIAL Kelly Perez PA-C [address] [place] [address] Mr Imaging Referral ID Status Reason Start Date Expiration Date V isits Requested Visits Authorized [id number] Closed Auto-Generate d Referral 09/20/2022 10/20/2023 1 1 Reason Comments New Patient Visit Reason Comments Head and Neck Cancer 1 year follow up Reason Comments Radiology CT Specialty Diagnoses / Procedures Referred By Contac t Referred To Contact CT IMAGING Diagnoses 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 Referral ID Status Reason Start Date Expiration Date V isits Requested Visits Authorized [id number] Closed Auto-Generate d Referral 10/26/2023 06/17/2024 1 1 Specialty Diagnoses / Procedures Referred By Contac t Referred To Contact CT IMAGING Diagnoses Lung nodules Procedures CT CHEST W IVCON DIAGNOSTIC COMPUTED TOMOGRAPHY THORAX W/CONTRAST Racquel Cole MD [address] [facility] [place] [address] [place] [address] Referral ID Status Reason Start Date Expiration Date V isits Requested Visits Authorized [id number] Closed Auto-Generate d Referral 10/30/2022 11/29/2022 1 1 Specialty Diagnoses / Procedures Referred By Contac t Referred To Contact CT IMAGING Diagnoses Malignant neoplasm of head, face and neck (HCC) Lung nodules 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) Localized swelling, mass or lump of neck Procedures CT NECK SOFT TISSUE W IVCON CONTRAST CAT OF NECK TISSUE Racquel Cole MD [address] [place] [address] [place] [address] [place] [address] Referral ID Status Reason Start Date Expiration Date V isits Requested Visits Authorized [id number] Closed Auto-Generate d Referral 09/23/2021 11/22/2021 1 1 Reason Comments Neck Pain Tingling Numbness Specialty Diagnoses / Procedures Referred By Contac t Referred To Contact Radiology 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 tumor perfusion protocol w and wo IV contrast Shimon Heaton, PA-C [address] [place] [address] Referral ID Status Reason Start Date Expiration Date Visits Requested Visits Authorized [id number] Authorized Perform Procedure 10/24/2023 10/23/2024 1 1 Reason Comments Neck Pain Specialty Diagnoses / Procedures Referred By Contac t Referred To Contact Diagnoses Cervical radiculopathy Senile osteoporosis Procedures ECG 12 lead Doretha Harris MD [address] [facility], [address] [address] Referral ID Status Reason Start Date Expiration Date V isits Requested Visits Authorized [id number] Authorized 01/09/2024 01/08/2025 1 1 Specialty Diagnoses / Procedures Referred By Contac t Referred To Contact Radiology Diagnoses Cervical radiculopathy Procedures XR cervical spine complete 6+ views Doretha Harris MD [address] [facility], [address] [address] Referral ID Status Reason Start Date Expiration Date Visits Requested Visits Authorized [id number] Authorized Perform Procedure 01/03/2024 01/02/2025 1 1 Specialty Diagnoses / Procedures Referred By Contac t Referred To Contact Radiology Diagnoses Cervical radiculopathy Procedures XR DEXA bone density Doretha Harris MD [address] [facility], [address] [place] [address] Referral ID Status Reason Start Date Expiration Date Visits Requested Visits Authorized [id number] Authorized Perform Procedure 01/08/2024 01/07/2025 1 1 [...] W IVCON DIAGNOSTIC COMPUTED TOMOGRAPHY THORAX W/CONTRAST Racquel Cole MD [address] [place] [address] [place] [address] Phone: tel: fax: [place] [address] Referral ID Status Reason Start Date Expiration Date V isits Requested Visits Authorized [id number] Closed Auto-Generate d Referral 11/01/2024 12/01/2024 1 1 Reason Comments Skin Check Care Teams (unrecognized sec tion and content) Peoplesoft Analyst Relationship Specialty Start Date End Date Griselda Hastings [address] [place], [place] [phone] PCP - General Family Practice 11/20/18 Griselda Hastings [address] [place] [phone] Referring Family Practice 11/20/18 Peoplesoft Analyst Relationship Specialty Start Date End Date Griselda Hastings [address] [place], [place] [phone] PCP - General Family Practice 11/20/18 Griselda Hastings [address] [place], [place] [phone] Referring Family Practice 11/20/18 Peoplesoft Analyst Relationship Specialty Start Date End Date Griselda Hastings [address] [place] [address], [place] [address] PCP - General Family Practice 11/20/18 Griselda Hastings [address] [place] [address], [place] [address] Referring Family Practice 11/20/18 Peoplesoft Analyst Relationship Specialty Start Date End Date Griselda Hastings [address] [place] [address], [place] [address] PCP - General Family Practice 11/20/18 Griselda Hastings [address] [place] [address], [place] [address] Referring Family Practice 11/20/18 Peoplesoft Analyst Relationship Specialty Start Date End Date Griselda Hastings [address] [place] [address], [place] [address] PCP - General Family Medicine 11/20/18 Griselda Hastings [address] [place] [address], [place] [address] Referring Family Medicine 11/20/18 Peoplesoft Analyst Relationship Specialty Start Date End Date Griselda Hastings [address] [place] [address], [place] [address] PCP - General Family Medicine 11/20/18 Griselda Hastings [address] [place] [address], [place] [address] Referring Family Medicine 11/20/18 Team Status: Inactive Member Role Status Dates Griselda Hastings DO Primary Care Provider Active Daniel Gaytan APRN Emergency Provider Active Team Status: Active Member Role Status Dates Griselda Hastings , Primary Care Provider Active Oziel Cadena MD Attending Provider Active Team Status: Active Member Role Status Griselda Darling , DO Primary Care Provider Active Team Status: Inactive Member Role Status Griselda Darling , DO Primary Care Provider Active Loi Wong Jr, MD Emergency Provider Active Team Status: Active Member Role Status Griselda Darling , DO Primary Care Provider Active Nikole Mota APRN RESEARCH PROGRAM MANAGER-C Attending Provider A ctive Team Status: Inactive Member Role Status Griselda Hastings , DO Primary Care Provider Active Oziel Cadena MD Attending Provider Active Team Status: Inactive Member Role Status Griselda Hastings , Primary Care Provider Active Nikole Mota APRN RESEARCH PROGRAM MANAGER-C Attending Provider A ctive Peoplesoft Analyst Relationship Specialty Start Date End Date Griselda Hastings [address] [place], [place] [phone] PCP - General Family Medicine 11/20/18 Griselda Hastings [address] [place], [place] [phone] Referring Family Medicine 11/20/18 Oziel Cadena MD [address] [place] [address] Referring Neurology 08/18/22 Peoplesoft Analyst Relationship Specialty Start Date End Date Griselda Hastings [address] [place], [place] [phone] PCP - General Family Medicine 11/20/18 Griselda Hastings [address] [place] [phone] Referring Family Medicine 11/20/18 Oziel Cadena MD [address] [place] [address], [place] [address] Referring Neurology 08/18/22 Peoplesoft Analyst Relationship Specialty Start Date End Date Darling Griselda Agudeloer [address] [place] [phone] PCP - General Family Medicine 11/20/18 AndreaGriselda meneseser [address] [place] [phone] Referring Family Medicine 11/20/18 Oziel Cadena MD [address] [facility] [address] [id number] Referring Neurology 08/18/22 Team Status: Inactive Member Role Status Dates Griselda Hastings DO Primary Care Provider, Attending Provi caron Active Team Status: Inactive Member Role Status Dates Griselda Hastings DO Primary Care Provider Active Lima Joseph MD Attending Provider Active Team Status: Inactive Member Role Status Dates Griselda Hastings DO Primary Care Provider Active Rohit gArawal DO Emergency Provider Active Team Status: Inactive Member Role Status Dates Griselda Hastings DO Primary Care Provider Active Lilliam Cason MD Attending Provider Active Team Status: Inactive Member Role Status Dates Griselda Hastings DO Primary Care Provider Active Ruddy Harvey MD Attending Provider Active Peoplesoft Analyst Relationship Specialty Start Date End Date Griselda Hastings DO [address] [place] [phone] PCP - General Family Medicine 02/13/23 Peoplesoft Analyst Relationship Specialty Start Date End Date Griselda Hastings DO [address] [place] [phone] PCP - General Family Medicine 02/13/23 Team Status: Inactive Member Role Status Dates Griselda Hastings DO Primary Care Provider Active Sta rt: May 04, 2023 End: May 04, 2023 Nikole Mota APRN RESEARCH PROGRAM MANAGER-C Attending Provider Active Start: April End: May 04, 2023 Team Status: Inactive Member Role Status Dates Griselda Mendezs , DO Primary Care Provider Active Sta [...] Poornima Hastings DO Attending Provider Active Start: July [...] September 05, 2023 End: September 05, 2023 Peoplesoft Analyst Relationship Specialty Start Date End Date Griselda Hastings DO PCP - General 01/03/19 Peoplesoft Analyst Relationship Specialty Start Date End Date Griselda Hastings DO [address] [facility] [address] [place] [address] PCP - General 01/03/19 [place] [address] [place] [address] Consulting Physician Hematology and Oncology 10/05/23 Team Status: Inactive Member Role Status Dates Grisleda Hastings DO Primary Care Provide r, Attending [...] Provider Active Sta rt: October 26, 2023 Racquel Cole MD Attending Provider Active Start: October 26, 2023 Team Status: Inactive Member Role Status Dates Griselda Hastings DO Primary Care Provide r, Attending Provider Active Start: October 29, 2023 End: October 29, 2023 Peoplesoft Analyst Relationship Specialty Start Date End Date Griselda Hastings [address] [place] [address] PCP - General Family Medicine 11/20/18 Griselda Hastings [address] [place] [address] Referring Family Medicine 11/20/18 Oziel Cadena MD [address] [facility] [address] [address] Referring Neurology 08/18/22 Team Status: Active Member Role Status Dates Lilliam Cason MD Powder Loader Active Griselda Hastings DO Primary Care Provider Active Team Status: Inactive Member Role Status Dates Griselda Hastings DO Primary Care Provide r, Attending Provider Active Start: December 03, 2023 End: December 03, 2023 Team Status: Inactive Member Role Status Dates Griselda Hastings DO Primary Care Provide r, Attending Provider Active Start: January 31, 2024 End: January 31, 2024 Peoplesoft Analyst Relationship Specialty Start Date End Date Griselda Hastings [address] [place] [phone] PCP - General Family Medicine 11/20/18 Griselda Hastings [address] [place], [place] [phone] Referring Family Medicine 11/20/18 Oziel Cadena MD [address] [facility] [address] [place] [address] Referring Neurology 08/18/22 Peoplesoft Analyst Relationship Specialty Start Date End Date Griselda Hastings [address] [place] [phone] PCP - General Family Medicine 11/20/18 Griselda Hastings [address] [place] [phone] Referring Family Medicine 11/20/18 Oziel Cadena MD [address] [place] [address] Referring Neurology 08/18/22 Peoplesoft Analyst Relationship Specialty Start Date End Date Griselda Hastings [address] [place] [address] PCP - General Family Medicine 11/20/18 Griselda Hastings [address] [place] [address] Referring Family Medicine 11/20/18 Peoplesoft Analyst Relationship Specialty Start Date End Date Griselda Hastings DO [address] [place] [address] PCP - General 01/03/19 [place] [address] [place] [address] Consulting Physician Hematology and Oncology 10/05/23 Solomon Narayanan PA-C [address] [facility], [address] [address] Physician 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 12/12/23 Team Status: Inactive Member Role Status Dates Griselda Hastings DO Primary Care Provide r, Attending Provider Active Start: April 01, 2024 End: April 01, 2024 Peoplesoft Analyst Relationship Specialty Start Date End Date Griselda Hastings DO [address] [place] [address] PCP - General 01/03/19 [place] [address] [place] [address] Consulting Physician Hematology and Oncology 10/05/23 Solomon Narayanan PA-C [address] [facility], [address] [address] Physician 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 12/12/23 Peoplesoft Analyst Relationship Specialty Start Date End Date Griselda Hastings DO [address] [place] [address] PCP - General 01/03/19 [place] [address] [place] [address] Consulting Physician Hematology and Oncology 10/05/23 Solomon Narayanan PA-C [address] [place] [address] Physician 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 12/12/23 Team Status: Inactive Member Role Status Dates Griselda Hastings DO Primary Care Provider Active Sta rt: April 28, 2024 End: April 28, 2024 Lilliam Cason MD Attending Provider Active Sta rt: April 28, 2024 End: April 28, 2024 Peoplesoft Analyst Relationship Specialty Start Date End Date Griselda Hastings DO [address] [place] [address] PCP - General Family Medicine 02/13/23 Peoplesoft Analyst Relationship Specialty Start Date End Date Griselda Hastings DO [address] [place] [address] PCP - General Family Medicine 02/13/23 Peoplesoft Analyst Relationship Specialty Start Date End Date Griselda Hastings DO [address] [place] [address] PCP - General 01/03/19 [place] [address] [place] [address] Consulting Physician Hematology and Oncology 10/05/23 Solomon Narayanan PA-C [address] [facility], [address] [address] Physician 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 12/12/23 Peoplesoft Analyst Relationship Specialty Start Date End Date Griselda Hastings DO [address] [place] [address] PCP - General 01/03/19 [place] [address] [place] [address] Consulting Physician Hematology and Oncology 10/05/23 Solomon Narayanan PA-C [address] [facility], [address] [address] Physician 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 12/12/23 Peoplesoft Analyst Relationship Specialty Start Date End Date Griselda Hastings DO [address] [place] [address] PCP - General 01/03/19 [place] [address] [place] [address] Consulting Physician Hematology and Oncology 10/05/23 Solomon Narayanan PA-C [address] [facility], [address] [address] Physician 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 12/12/23 Peoplesoft Analyst Relationship Specialty Start Date End Date Griselda Hastings DO [address] [place] [address] PCP - General 01/03/19 [place] [address] [place] [address] Consulting Physician Hematology and Oncology 10/05/23 Solomon Narayanan PA-C [address] [facility], [address] [address] Physician 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 12/12/23 Peoplesoft Analyst Relationship Specialty Start Date End Date Griselda Hastings DO [address] [place] [address] PCP - General 01/03/19 [place] [address] [place] [address] Consulting Physician Hematology and Oncology 10/05/23 Solomon Narayanan PA-C [address] [facility], [address] [address] Physician 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 12/12/23 Peoplesoft Analyst Relationship Specialty Start Date End Date Griselda Hastings DO [facility] [place] [address] PCP - General 01/03/19 [place] [address] [place] [address] Consulting Physician Hematology and Oncology 10/05/23 Solomon Narayanan PA-C [address] [facility], [address] [address] Physician 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 12/12/23 Team Status: Inactive Member Role Status Dates Griselda Hastings DO Primary Care Provider Active Sta rt: June 24, 2024 End: June 24, 2024 Solomon Narayanan PA-C Attending Provider Active St art: June 24, 2024 End: June 24, 2024 Peoplesoft Analyst Relationship Specialty Start Date End Date Griselda Hastings DO [address] [place] [facility] [place] [address] PCP - General 01/03/19 [place] [address] [place] [address] Consulting Physician Hematology and Oncology 10/05/23 Solomon Narayanan PA-C [address] [place] [address] Physician 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 12/12/23 Peoplesoft Analyst Relationship Specialty Start Date End Date Griselda Hastings DO [address] [place] [facility] [place] [address] PCP - General Family Medicine 02/13/23 Team Status: Inactive Member Role Status Dates Griselda Hastings DO Primary Care Provide r, Attending Provider Active Start: July 03, 2024 End: July 03, 2024 Peoplesoft Analyst Relationship Specialty Start Date End Date Griselda Hastings DO [address] [place] [facility] [place] [facility] [phone] PCP - General Family Medicine 02/13/23 Peoplesoft Analyst Relationship Specialty Start Date End Date Griselda Hastings DO [address] [place] [facility] [place] [facility] [address] PCP - General Family Medicine 02/13/23 Team Status: Active Member Role Status Dates Griselda Hastings DO Primary Care Provider Active Sta rt: September 11, 2024 Ruddy Harvey MD Attending Provider Active Start: September 11, 2024 Team Status: Inactive Member Role Status Dates Griselda Hastings DO Primary Care Provider Active Sta rt: September 11, 2024 End: September 11, 2024 KAJAL JuddC Attending Provider Active Start: September 11, 2024 End: September 11, 2024 Peoplesoft Analyst Relationship Specialty Start Date End Date Griselda Hastings DO [address] [place] [phone] PCP - [facility] Family Medicine 02/13/23 Team Status: Inactive Member [...] September 20, 2024 End: September 20, 2024 Peoplesoft Analyst Relationship Specialty Start Date End Date Griselda Hastings DO PCP - [facility] Medicine 02/13/23 Team Status: Inactive Member Role [...] October 10, 2024 End: October 10, 2024 Peoplesoft Analyst Relationship Specialty Start Date End Date Griselda Hastings DO [address] [place] [address] PCP - General 01/03/19 [place] [address] [place] [address] Consulting Physician Hematology and Oncology 10/05/23 Solomon Narayanan PA-C [address] [place] [address] Physician 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 12/12/23 Peoplesoft Analyst Relationship Specialty Start Date End Date Griselda Hastings DO [address] [place] [address] PCP - General 01/03/19 [place] [address] [place] [address] Consulting Physician Hematology and Oncology 10/05/23 Solomon Narayanan PA-C [address] [place] [address] Physician 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 12/12/23 Team Status: Inactive Member Role Status Dates Griselda Hastings DO Primary Care Provider Active Sta rt: October 27, 2024 End: October 27, 2024 Lilliam Cason MD Attending Provider Active Sta rt: October 27, 2024 End: October 27, 2024 Peoplesoft Analyst Relationship Specialty Start Date End Date Griselda Hastings [address] [place] [phone] PCP - General Family Medicine 11/20/18 Griselda Hastings [address] [place] [phone] Referring Family Medicine 11/20/18 Oziel Cadena MD [address] [facility] [address] [id number] Referring Neurology 08/18/22 Peoplesoft Analyst Relationship Specialty Start Date End Date Griselda Hastings [address] [place], [place] [phone] PCP - General Family Medicine 11/20/18 Griselda Hastings [address] [place], [place] [phone] Referring Family Medicine 11/20/18 Oziel Cadena MD [address] [facility] [address] Rothman [address] [place] [id number] Referring Neurology 08/18/22 Peoplesoft Analyst Relationship Specialty Start Date End Date Griselda [...] Arango MD Attending Provider, Other Provider Act kurt Start: November 05, 2024 Team Status: Inactive Member Role Status Dates Griselda Hastnigs DO Primary Care Provider Active Sta rt: November 17, 2024 End: November 17, 2024 Solomon Montez APRN Attending Provider Active Start: November 17, 2024 End: November 17, 2024 Team Status: Inactive Member Role Status Dates Griselda Hastings DO Primary Care Provide r, Attending Provider Active Start: November 19, 2024 End: November 19, 2024 Peoplesoft Analyst Relationship Specialty Start Date End Date Griselda Hastings DO PCP - General Family Medicine 02/13/23 Team Status: Inactive Member Role Status Dates Griselda Hastings DO Primary Care Provide r, Attending Provider Active Start: 2024 End: 2024 Peoplesoft Analyst Relationship Specialty Start Date End Date Griselda Hastings DO PCP - [facility] Family Medicine 02/13/23 Team Status: Active Member [...] January 12, 2025 End: January 12, 2025 Peoplesoft Analyst Relationship Specialty Start Date End Date Griselda Hastings DO PCP - General Family Medicine 02/13/23 Peoplesoft Analyst Relationship Specialty Start Date End Date Griselda [...] RN)0615 (Given - Provider: Elizabeth Esposito RN)1315 (Due)1914 (Due) amLODIPine (Norvasc) tablet 10 mg 10 [...] refused) 1034 (Given - Provider: Whitney Kaufman RN)2099 (Due) tiZANidine (Zanaflex) tablet 4 mg 4 mg, oral, Nightly, First dose on Sun04/09/24 at 2100, Phase II/On Unit 2022 (Given - Provider: Elizabeth Esposito RN) 2100 (Due) Continuous Medication Order 04/08/2024 04/09/2024 04/10/2024 lactated Ringer's infusion (CANCELED) 20 mL/hr, intravenous, Continuous, Starting on Sun04/09/24 at 1215, Preprocedure 1341 (New Bag - Provider: Shelly Mullins Capp [facility])1630 (Stopped - Provider: NAVEEN Reddy)1631 (Continued from OR - Provider: Goyo Agarwal RN) 1451 (Due: Stopped - Provider: Nikole Lezama, AnuradhaD) lactated Ringer's infusion 100 mL/hr, intravenous, Continuous, Starting on Sun04/09/24 at 1915, For 24 hours, Phase II/On Unit, Convert IV to saline lock when taking oral fluids. 194 (Not Given - Provider: Elizabeth Esposito RN [...] 2025 (Given - Provider: Elizabeth Esposito RN) 0030 (Given - Provider: Elizabeth Esposito RN)0615 (Given [...] BE BASED ON THE PRIMARY CLINICAL RECORDS. [employer] provides no warranty or guarantee of the accuracy or completeness of information in this document.
--- NOTE | 2025-02-18 21:57 | ECG_ITS ---
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
--- NOTE | 2025-02-18 21:58 | ED.EXTPRO1 ---
HPI - Extremity Problem General Chief complaint: Extremity Problem, Nontraumatic Stated complaint: Extremity Injury, Lower Time Seen by Provider: 02/18/25 21:31 Source: patient Mode of arrival: walk-in Limitations: no limitations History of Present Illness HPI Narrative: This 64-year-old male with a history of peripheral vascular disease who has a stent in his right leg and has had a DVT in the past and who is a smoker who was formally on Plavix after having the stent placed in 2022 at [facility] presents for evaluation of intermittent episodes of numbness of his right leg. The patient states if he is driving and has his leg bent for more than 10 minutes he starts to have numbness in his right foot. When he is walking he has aching sensation in his right thigh. He states that for approximately 1 month he stopped taking his Plavix because he did not like the side effects of bruising but started taking the Plavix again on Sunday. He does not have any calf pain or swelling. He states he has intermittent pain in the lower sternal area of his chest but does not feel short of breath. He has not had any syncopal episodes or episodes of tachycardia. Related Data Home Medications ?Medication ?Instructions ?Recorded ?Confirmed amlodipine 5 mg tablet (Norvasc) 10 mg PO DAILY 04/16/23 02/09/25 aspirin 81 mg tablet,delayed 81 mg PO DAILY 04/16/23 02/09/25 release (Adult Low Dose Aspirin) alirocumab 75 mg/mL subcutaneous 75 mg subcut Q14D 01/27/25 02/09/25 pen injector (Praluent Pen) citalopram 10 mg tablet 10 mg PO DAILY 01/27/25 02/09/25 ezetimibe 10 mg tablet 10 mg PO DAILY 01/27/25 02/09/25 multivitamin (Daily Multi-Vitamin 1 tab PO DAILY 01/27/25 02/09/25 tablet) pantoprazole 40 mg tablet,delayed 40 mg PO Q12H 01/27/25 02/09/25 release pravastatin 40 mg tablet 40 mg PO DAILY 01/27/25 02/09/25 tizanidine 4 mg capsule 4 mg PO Q12H 01/27/25 02/09/25 Previous Rx's ?Medication ?Instructions ?Recorded naloxone 4 mg/actuation nasal 4 mg intranasal Q2M PRN opioid 09/11/24 spray (Narcan) overdose #2 ea hydrocodone 7.5 mg-acetaminophen 1 tab PO BID PRN pain #60 tabs 01/01/25 325 mg tablet Allergies Allergy/AdvReac Type Severity Reaction Status Date / Time cephalexin (From Keflex) Allergy Unknown hives Verified 02/09/25 06:56 Review of Systems ROS Status of ROS 10 or more systems reviewed and unremarkable except as noted in history and below [facility] Medical History (Updated 02/18/25 @ 23:02 by Sofia Arias MD) Tongue carcinoma ?C02.9 - Malignant neoplasm of tongue, unspecified (ICD-10) First degree AV block ?I44.0 - Atrioventricular block, first degree (ICD-10) Claudication of both lower extremities ?I73.9 - Peripheral vascular disease, unspecified (ICD-10) Nicotine dependence with current use ?F17.200 - Nicotine dependence, unspecified, uncomplicated (ICD-10) Oral cancer ?C06.9 - Malignant neoplasm of mouth, unspecified (ICD-10) Cervical radiculopathy ?M54.12 - Radiculopathy, cervical region (ICD-10) Myofascial pain ?M79.18 - Myalgia, other site (ICD-10) Left shoulder pain ?M25.512 - Pain in left shoulder (ICD-10) Mononeuropathy of left suprascapular nerve ?G56.82 - Other specified mononeuropathies of left upper limb (ICD-10) Neuropathy, axillary nerve ?G56.90 - Unspecified mononeuropathy of unspecified upper limb (ICD-10) Cervical spondylosis ?M47.812 - Spondylosis without myelopathy or radiculopathy, cervical region (ICD-10) Degenerative disc disease, cervical ?M50.30 - Other cervical disc degeneration, unspecified cervical region (ICD-10) Chronic prescription opiate use ?Z79.891 - intermission coordinator (current) use of opiate analgesic (ICD-10) Myalgia, other site ?M79.18 - Myalgia, other site (ICD-10) Malignant neoplasm of head and neck ?C76.0 - Malignant neoplasm of head, face and neck (ICD-10) Squamous cell carcinoma Skin cancer ?C44.90 - Unspecified malignant neoplasm of skin, unspecified (ICD-10) Osteoarthritis ?M19.90 - Unspecified osteoarthritis, unspecified site (ICD-10) Depression ?F32.A - Depression, unspecified (ICD-10) Anxiety ?F41.9 - Anxiety disorder, unspecified (ICD-10) Seasonal allergies ?J30.2 - Other seasonal allergic rhinitis (ICD-10) Cataract ?H26.9 - Unspecified cataract (ICD-10) GERD (gastroesophageal reflux disease) ?K21.9 - Gastro-esophageal reflux disease without esophagitis (ICD-10) Dyspnea on exertion ?R06.09 - Other forms of dyspnea (ICD-10) PVD (peripheral vascular disease) ?I73.9 - Peripheral vascular disease, unspecified (ICD-10) High cholesterol ?E78.00 - Pure hypercholesterolemia, unspecified (ICD-10) Neck pain ?M54.2 - Cervicalgia (ICD-10) Low back pain ?M54.50 - Low back pain, unspecified (ICD-10) Smoker ?F17.200 - Nicotine dependence, unspecified, uncomplicated (ICD-10) Irregular heart beat ?I49.9 - Cardiac arrhythmia, unspecified (ICD-10) Hypertension ?I10 - Essential (primary) hypertension (ICD-10) Surgical History Status post surgical removal of malignant neoplasm of skin ?Z98.890 - Other specified postprocedural states (ICD-10) History of tonsillectomy ?Z90.89 - Acquired absence of other organs (ICD-10) Status post cervical spinal fusion ?Z98.1 - Arthrodesis status (ICD-10) Cataract extraction status of left eye ?Z98.42 - Cataract extraction status, left eye (ICD-10) H/O cervical spine surgery ?Z98.890 - Other specified postprocedural states (ICD-10) H/O neck dissection ?Z98.890 - Other specified postprocedural states (ICD-10) Family History Other Family history of COPD (chronic obstructive pulmonary disease) Family history of diabetes mellitus Family history of emphysema Family history of heart disease Family history of hypertension Family history of stroke Family history of throat cancer Social History Within the past year, how often did you have a drink containing alcohol: never Score interpretation: A score less than 4 is consistent with normal alcohol consumption. Smoking status: Current every day smoker Non-prescribed substance use: denies use Previous occupational history: disabled Highest level of school completed/degree received: high school graduate Little interest or pleasure in doing things: not at all Feeling down, depressed, or hopeless: not at all Exam Narrative Exam Narrative: Vital signs and Nursing Notes reviewed: Patient is afebrile with a normal pulse, normal blood pressure, he is not hypoxic with pulse ox of 98% on room air General: Nontoxic, thin adult male he is awake, alert, oriented, no acute distress, lying comfortably on the stretcher HEENT: Normocephalic atraumatic, mucous membranes are moist and pink, eyes are clear, normal conjunctiva, vision is grossly intact, posterior pharynx is normal in appearance. Neck: Supple, no meningeal signs, no anterior or posterior cervical lymphadenopathy Chest: Lungs are clear to auscultation with good air entry, there is no wheezing rhonchi or rales appreciated no accessory muscle use, patient is speaking in complete sentences-no chest wall tenderness to palpation CVS: Regular rate and rhythm S1-S2, no murmurs rubs or gallops, pulses are brisk and equal bilaterally ABD: Soft, nondistended, nontender, no rebound guarding or rigidity, bowel sounds are normal, no pulsatile masses appreciated Extremities: Moving all extremities, no lower extremity tenderness or swelling noted, calves are equal in appearance, lower extremity sensation is intact. Dorsalis pedis posterior tibialis and femoral pulses are present in the right lower extremity. The foot is warm and sensate. Skin: Normal in appearance without rash,pallor, petechiae or purpura Neuro: No focal deficits Constitutional Vital Signs, click to edit/add: Last Vital Signs Temp 98.3 F 02/18/25 21:30 Pulse 88 02/18/25 21:30 Resp 02/18/25 21:30 BP 124/95 H 02/18/25 21:30 Pulse Ox 98 02/18/25 21:30 O2 Del Method Room Air 02/18/25 21:30 Course Vital Signs Vital signs: Vital Signs Temperature 98.3 F 02/18/25 21:30 Pulse Rate 88 02/18/25 21:30 Respiratory Rate 18 02/18/25 21:30 Blood Pressure 124/95 H 02/18/25 21:30 Pulse Oximetry 98 02/18/25 21:30 Oxygen Delivery Method Room Air 02/18/25 21:30 Temperature 98.3 F 02/18/25 21:30 Pulse Rate 88 02/18/25 21:30 Respiratory Rate 18 02/18/25 21:30 Blood Pressure 124/95 H 02/18/25 21:30 Pulse Oximetry 98 02/18/25 21:30 Oxygen Delivery Method Room Air 02/18/25 21:30 MDM - Extremity (Nontraumatic) MDM Narrative Medical decision making narrative: This 64-year-old male who is a smoker and has a history of a DVT in the right leg as well as a stent in the right leg presumably due to vascular disease presents for evaluation of intermittent episodes of numbness in the right leg particularly when he is sitting and driving for longer than 10 minutes as well as pain in the right thigh. The patient was placed on Plavix after he had his stent however due to the side effects of bruising he stopped taking the Plavix for over a month. He started taking it again last Sunday. He also complains of some chest pain in his subxiphoid region. He denies any abdominal pain dizziness tachycardia or syncope. His physical exam is benign. Calf sizes are equal. Feet are warm and sensate with normal pulses. EKG is a sinus rhythm at 77 bpm with a first-degree AV block and no acute changes. An IV was placed and routine labs are ordered. He has normal white count and hemoglobin. Electrolyte panel is normal. Liver function tests are normal. Troponin is normal. D-dimer is normal. The results of the studies were discussed with him. I explained that he likely does not have a DVT or arterial occlusion at this time but suggested that he follow-up closely with his family physician and vascular surgeon. He states he has an appointment tomorrow with his primary physician. He will be given a copy of his lab results to share with his doctor at that time. He is otherwise stable for discharge. I encouraged him to continue compliance with his Plavix. Lab Data Attestation: I reviewed the patient's lab results. Labs: Lab Results 02/18/25 Range/Units 22:05 WBC 7.4 (4.0-11.0) 10^3/uL RBC 4.25 L (4.70-6.10) 10^6/uL Hgb 13.8 L (14.0-18.0) g/dL Hct 39.7 L (42.0-54.0) % MCV 93.4 (80.0-94.0) fL MCH 32.5 (25.9-34.0) pg MCHC 34.8 (29.9-35.2) g/dL RDW 13.4 (11.0-15.0) % Plt Count 246 (150-450) 10^3/uL MPV 11.4 (9.5-13.5) fL Neut % (Auto) 63.5 (43.0-75.0) % Lymph % (Auto) 28.8 (20.5-60.0) % [place] % (Auto) 5.6 (1.7-12.0) % Eos % (Auto) 1.1 (0.9-7.0) % Baso % (Auto) 0.7 (0.2-2.0) % Neut # (Auto) 4.7 (1.4-6.5) 10^3/uL Lymph # (Auto) 2.1 (1.2-3.8) 10^3/uL [place] # (Auto) 0.4 (0.3-0.8) 10^3/uL Eos # (Auto) 0.1 (0.0-0.7) 10^3/uL Baso # (Auto) 0.1 (0.0-0.1) 10^3/uL Abs Immat Gran (auto) 0.02 (0.00-0.03) 10^3/uL Imm/Tot Granulo (auto) 0.3 (0.0-0.5) % D-Dimer 0.56 (<=0.59) mg/L FEU Sodium 144 (136-145) mmol/L Potassium 4.1 (3.5-5.1) mmol/L Chloride 108 H (98-107) mmol/L Carbon Dioxide 27.5 (21.0-32.0) mmol/L Anion Gap 12.6 BUN 11.0 (7.0-18.0) mg/dL Creatinine 0.87 (0.70-1.30) mg/dL Est GFR ( Amer) >60 (>=60 mL/min/1.73m^2) Est GFR (Non-Af Amer) >60 (>=60 mL/min/1.73m^2) BUN/Creatinine Ratio 12.6 Glucose 78 (74-106) mg/dL Calcium 9.5 (8.5-10.1) mg/dL Total Bilirubin 0.8 (0.2-1.0) mg/dL AST 11 L (15-37) U/L ALT 18 (16-63) U/L Alkaline Phosphatase 68 (46-116) U/L Troponin I High Sens 11.3 (4.0-76.1) pg/mL Total Protein 5.5 L (6.4-8.2) g/dL Albumin 3.0 L (3.4-5.0) g/dL Globulin 2.5 g/dL Albumin/Globulin Ratio 1.2 ECG Data Attestation ECG: I personally reviewed and interpreted this ECG as follows: (Sinus rhythm at 77 bpm, first-degree AV block, low voltage QRS in chest leads, no acute ST segment elevation or T wave inversion) Discharge Plan Discharge Chief Complaint: Extremity Problem, Nontraumatic Clinical Impression: Claudication in peripheral vascular disease Patient Disposition: Home, Self-Care Time of Disposition Decision: 23:02 Condition: Good Prescriptions / Home Meds: No Action amlodipine [Norvasc] 5 mg tablet 10 mg PO DAILY aspirin [Adult Low Dose Aspirin] 81 mg tablet,delayed release (DR/EC) 81 mg PO DAILY hydrocodone-acetaminophen 7.5-325 mg tablet 1 tab PO BID PRN (Reason: pain) Qty: 60 0RF Praluent Pen 75 mg/mL pen injector 75 mg SUBCUT Q14D citalopram 10 mg tablet 10 mg PO DAILY ezetimibe 10 mg tablet 10 mg PO DAILY pantoprazole 40 mg tablet,delayed release (DR/EC) 40 mg PO Q12H pravastatin 40 mg tablet 40 mg PO DAILY tizanidine 4 mg capsule 4 mg PO Q12H multivitamin [Daily Multi-Vitamin] Tablet 1 tab PO DAILY naloxone [Narcan] 4 mg/actuation spray,non-aerosol 4 mg intranasal Q2M PRN (Reason: opioid overdose) Qty: 2 0RF Rx Instructions: spray 1 dose into ONE nostril; alternate nostrils w each dose until help arrives Print Language: Vietnamese Instructions: Peripheral Vascular Disease (ED), Peripheral Artery Disease (ED) Referrals: GRISELDA KRAUSE [Primary Care Provider, Family Practice] - 1 week
[2025-02-18 22:28] LABS: Hematocrit 39.7 % (42.0-54.0); Hemoglobin 13.8 g/dL (14.0-18.0); Immature Granulocytes Abs Auto 0.02 10^3/uL (0.00-0.03); Immature Granulocytes Pct Auto 0.3 % (0.0-0.5); Lymphocytes Absolute Auto 2.1 10^3/uL (1.2-3.8); Mean Corpuscular HGB Conc 34.8 g/dL (29.9-35.2); Mean Corpuscular Hemoglobin 32.5 pg (25.9-34.0); Mean Corpuscular Volume 93.4 fL (80.0-94.0); Platelet Count 246 10^3/uL (150-450); Red Blood Count 4.25 10^6/uL (4.70-6.10); White Blood Count 7.4 10^3/uL (4.0-11.0)
--- NOTE | 2025-02-18 22:28 | PC.NURSE ---
this patient updated abut that now we are waiting on the blood test results to come back and Dr Arias has seen your 12 lead EKG. this patient voices no concerns, needs and shows no signs of distress
[2025-02-18 22:47] LABS: Alanine Aminotransferase 18 U/L (16-63); Albumin Globulin Ratio 1.2; Albumin Level 3.0 g/dL (3.4-5.0); Alkaline Phosphatase 68 U/L (46-116); Anion Gap 12.6; Aspartate Amino Transferase 11 U/L (15-37); Blood Urea Nitrogen 11.0 mg/dL (7.0-18.0); Calcium 9.5 mg/dL (8.5-10.1); Carbon Dioxide 27.5 mmol/L (21.0-32.0); Chloride 108 mmol/L (98-107); Estimated GFR (African America >60 (>=60 mL/min/1.73m^2); Estimated GFR (Non-African Ame >60 (>=60 mL/min/1.73m^2); Globulin 2.5 g/dL; Glucose 78 mg/dL (74-106); Potassium 4.1 mmol/L (3.5-5.1); Sodium 144 mmol/L (136-145); Total Protein 5.5 g/dL (6.4-8.2)
--- NOTE | 2025-02-18 23:15 | PC.NURSE ---
i gave this patient verbal and written discharge orders and this patient voices yes to understanding these. at time of discharge this patient voices no concerns, needs and shows no signs of distress
== END 2025-02-18 23:17 | disposition home or self-care (01) ==
PROVIDERS: Emergency Provider Emergency Medicine; PCP Family Medicine
DX: I70.211 Atherosclerosis of native arteries of extremities with intermittent claudication, right leg (principal); R20.2 Paresthesia of skin
CPT/HCPCS: 36415; 80053; 84484; 85025; 85378; 93005; 99284

== ENCOUNTER 2025-03-12 11:11 | Outpatient (OUT) | payer MEDICARE, OTHER, SELFPAY ==
--- OUTSIDE RECORDS SUMMARY | 2025-02-26 20:57 | XMS_ITS | Continuity of Care Document ---
Author Organization [facility] Address [address] [place] [address] Phone Care Team Providers Care Location Worker Name Role Phone Jax Hastings DO Primary Care Provider René Montez APRN Attending Provider [phone] Sarina Ramsey MD Attending Provider [phone] Sofia Arias DO Attending Provider [phone] Jax Hastings DO Attending Provider Care Teams Patient Care Team Team Status: Active Member Role Status Dates Lilliam Cason MD Dike Supervisor Active Jax Hastings DO Primary Care Provider Active Visit Care Team Team Status: Inactive Member Role Status Dates Jax Hastings DO Primary Care Provider Active Sta rt: January 12, 2025 End: January 12, 2025 René Montez APRN Attending Provider Active Start: January 12, 2025 End: January 12, 2025 Visit Care Team Team Status: Active Member Role Status Poornima Hastings DO Primary Care Provider Active Sta rt: January 27, 2025 Sarina Ramsey MD Attending Provider Active Start: January 27, 2025 Visit Care Team Team Status: Active Member Role Status Poornima Hastings DO Primary Care Provider Active Sta rt: February 18, 2025 Sofia Arias DO Attending Provider Active Start: February 18, 2025 Visit Care Team Team Status: Inactive Member Role Status Dates Jax Hastings DO Primary Care Provider Active Sta rt: February 19, 2025 End: February 19, 2025 Jax Hastings DO Attending Provider Active Start: February 19, 2025 End: February 19, 2025 Patient Care Team Team Status: Inactive Member Role Status Dates Jax Hastings DO Primary Care Provider Active Sta rt: February 26, 2025 End: February 26, 2025 Jax Hastings DO Attending Provider Active Start: February 26, 2025 End: February 26, 2025 Chief Complaint and Reason for Visit Chief Complaint Admit Date follow up Dyspepsia/GERD January 12, 2025 3:14pm medicare wellness February 19, 2025 10:28am I73.9 February 26, 2025 1:18pm Reason for Visit Admit Date Colon polyps January 12, 2025 3:14 pm Dyspepsia January 12, 2025 3:14 pm GERD (gastroesophageal reflux disease) J kurtis 2024 3:14pm Anxiety and depression February 19 10:28am Burning sensation February 19, 2025 10:28am Colon polyps February 19, 2025 10:28am Hyperlipidemia February 19, 2025 10:28am Medicare annual wellness visit, initial February 19, 2025 10:28am Nicotine dependence with current use Sep tember 2024 10:28am PAD (peripheral artery disease) Septembe r 2024 10:28am S/P cervical discectomy February 19, 2 025 10:28am Screening for prostate cancer February 19, 2025 10:28am Allergies, Adverse Reactions, Alerts Allergen Type Severity Reaction Last Updated Verified Status cephalexin Allergy Unknown Hives, rash February 19, 2025 11:34 am Yes Active varenicline Allergy Unknown nightmares February 19, 2025 11:34 am Yes Active Social History Smoking Status Status Start [...] dependence with current use Unknown Acti ve Medicare annual wellness visit, initial Unknown A ctive History of COVID-19 Unknown Active Insomnia Unknown [...] 2008 Active Hypertension March 02, 2023 Active Colon polyps Unknown Active Inactive/Resolved Problems Medical Problem Onset Date [...] once daily Citalopram (Celexa) 10 mg tablet Discont inued 10 MG PO Daily September 29, 2024 3:10pm Septe mber 2024 12:00 pm Amlodipine 10 mg tablet Active 10 MG PO Daily September 29, 2024 3:11pm Unknown Lisinopril 10 mg tablet Active 10 MG PO Daily September 29, 2024 3:11pm Unknown Alirocumab (Praluent Pen) 75 mg/mL pen injector Active 75 MG SUBCUT Q14D 7 November 03, 2024 12:00a m Unknown Meclizine 25 mg tablet Discont inued 25 MG PO Three times daily as needed for dizziness b er 2017 1:00am Octob er 2021 4:26p m Promethazin e 25 mg tablet Discont inued 25 MG PO Q6H as needed for motion sickness b er 2017 1:00am Octob er 2021 4:26p m Amoxicillin -Pot Clavulanate 875-125 mg tablet Discont inued 1 TAB PO Twice daily 2022 12:00a m Novem unique 2022 9:23a m Cyclobenzap rine 10 mg tablet Discont inued 10 MG PO Three times daily as needed for Muscle Spasm 10 Marobe r 2022 12:00a m Novem unique [...] PO Daily Novemb er 2022 1:00am Febru eloise 2023 1:45p m Clotrimazol e-Betametha sone 1-0.05 % cream Discont inued 1 APPLIC TOPICA L Twice daily Novemb er 2022 1:00am Febru [email or web address] 1:47p m Gabapentin 300 mg capsule Discont inued 300 MG PO Three times daily Novemb er 2022 1:00am Febru [email or web address] 1:47p m Olmesartan 20 mg tablet Discont inued MG Novemb er 2022 1:00am Febru [email or web address] 1:50p m Clopidogrel 75 mg Tablet Discont inued 75 MG PO Daily 90 180 Novemb er 2022 1:00am Febru [email or web address] 1:46p m Albuterol Sulfate 90 mcg/actuati on [...] Daily December 10, 2017 12:00a m Novem 2017 3:12p m Naproxen 500 mg tablet Discont inued 500 MG PO Twice daily December 10, 2017 12:00a m unique 2017 3:12p m administer with food or milk Hydrocodone -Acetaminop hen ([place]) 5-325 mg tablet Discont inued 1 TAB PO Q4H December 10, 2017 Novem unique 2017 3:12p m Promethazin e 25 mg Tablet Discont inued 25 MG PO Q6H as needed for Nausea September 08, 2021 12:00a m Octob er 2021 4:26p m Citalopram 20 mg tablet Discont inued 20 MG PO Daily Octobe r 2021 12:00a m Febru [email or web address] 1:46p m Rimegepant (Nurtec Odt) 75 mg tablet,disi ntegrating Discont inued 75 MG PO Q48H Octobe r 2021 12:00a m Janua ry 2022 9:02a m Tizanidine 4 mg tablet Discont inued 8 MG PO Bedtime Octobe r 2021 12:00a m Febru [email or web address] 1:50p m Prednisone 20 mg tablet Discont inued 40 [facility] Jun[facility] 2022 9:01a m administer with food or milk Oxycodone-A cetaminophe n (Percocet) 5-325 mg tablet Discont inued 1 - 2 TAB PO Every 6 hours as needed for pain 20 4 Octobe r 2021 9:01a m Ibuprofen 600 mg tablet Discont inued 600 MG PO Q8H as needed for pain 20 [facility] 2021 12:00a m Janua ry 2022 9:01a m Tizanidine 4 mg capsule Discont inued 4 MG PO Twice daily as needed for muscle spasticity 14 Octobe r 2021 12:00a m Janua ry 2022 9:02a m Indomethaci n 25 mg Capsule Discont inued 25 MG PO Daily 2022 1:00am Febru 2023 1:48p m Montelukast (Singulair) 10 mg Tablet Discont inued 10 MG PO Daily 2022 1:00am Febru [email or web address] 1:49p m Hydroxyzine Hcl 25 mg Tablet Discont inued 25 MG PO Bedtime as needed for Insomnia 2022 1:00am 2023 1:48p m Mirtazapine 7.5 mg Tablet Discont inued 7.5 MG PO Bedtime as needed for Insomnia 2022 1:00am 2023 1:49p m Aspirin 81 mg Capsule Discont inued 81 MG PO Daily 2022 1:00am 2023 1:45p m Hydrocodone -Acetaminop hen 7.5-325 mg tablet Active 1 TAB PO Twice daily as needed for pain October 06, 2024 12:00a m Unknown Ondansetron 4 mg tablet,disi ntegrating Discont inued [...] inued 75 MG PO Daily 2023 1:00am Aug2023 2:33p m FreeTextSi tablet Orally Once a [...] Active 81 MG PO Daily 2023 1:00am Unknown Multivitami n (Multiple Vitamins) tablet Active 1 TAB PO Daily 2023 1:00am Unknown Brexpiprazo le 1 mg tablet Discont inued [...] APPLIC TOPICA L Twice daily 2023 1:00am 2023 1:47p m FreeTextSi application Externally Twice [...] day; Note: Source Status: Continue; Provider: Darling Burnsxpiprazo le 1 mg tablet Discont inued 0.5 MG PO Daily 2023 2:09pm October 18, 2023 8:55a m Hydroxyzine Hcl 25 mg tablet Active 25 MG PO Daily at bedtime as needed for insomnia September 05, 2023 1:34pm FreeTextSi-2 tablets Orally HS as needed; Note: Source Status: Taking; Provider: Darling Driver Unknown Ibuprofen 800 mg tablet Discont inued 800 [...] tablet Discont inued 10 MG PO Daily December 03, 2023 12:00a m Octob er 2023 11:02 am Buspirone 5 mg tablet Discont inued 5 MG PO January 31, 2024 12:00a m Janua ry 2024 10:50 am Alprazolam (Xanax) 0.25 mg tablet Discont inued 0.25 MG PO Daily January 31, 2024 12:00a m Octob er [...] inued 140 MG SUBCUT EVERY 2 WEEKS October 27, 2024 12:00a m November 03, 2024 9:56a m Pantoprazol e 40 mg tablet,natalio yed release (DR/EC) Active 40 MG PO Twice daily 60 November 17, 2024 2:10pm Unknown Azithromyci n (Zithromax Z-Slim) 250 mg tablet Discont inued 0 PO .COMPLEX November 19, 2024 12:00a m [facility] 2024 11:11 am For 250 mg dose pack: take 500 mg today (day 1), then 250 mg for 4 days (days 2-5) PO Methylpredn isolone (Medrol (Slim)) 4 mg tablets,dos e pack Discont inued 0 PO per package directions November 19, 2024 12:00a m [facility] 2024 11:11 am PO PER PKG DIR for 6 days Doxycycline Hyclate 100 mg capsule Discont inued 100 MG PO Twice daily 06 04November 25, 2024 12:00a m [facility] 2024 11:11 am Methylpredn isolone 4 mg tablets,dos e pack Discont inued 0 PO per package directions November 25, 2024 12:00a m [facility] 2024 11:11 am PO PER PKG DIR Pravastatin 40 mg tablet Discont inued 40 MG PO Daily [facility] 2024 12:00a m [facility] 2024 12:00 pm Ezetimibe 10 mg tablet Discont inued 10 MG PO Daily [facility] 2024 12:00a m [facility] 2024 12:00 pm Tizanidine 4 mg capsule Active 4 MG PO Twice daily as needed Feb 2024 12:00a m Unknown Clopidogrel 75 mg tablet Active 75 MG PO Daily [facility]2024 12:00a m Unknown Citalopram 20 mg tablet Active 20 MG PO Daily 2024 11:51a m Unknown Pravastatin 40 mg tablet Active 40 MG PO Daily [facility] 2024 11:59a m Unknown Ezetimibe 10 mg tablet Active 10 MG PO Daily [facility] 2024 11:59a m Unknown Ezetimibe 10 mg tablet Discont inued 10 MG PO Daily October 29, 2023 12:00a m November 05, 2023 10:42 am Pravastatin 40 mg tablet Discont inued 40 MG PO Daily October 29, 2023 12:00a m November 05, 2023 10:42 am Hydrocodone -Acetaminop hen 5-325 mg tablet Discont inued TAB PO Every 8 hours as needed September 05, 2023 12:00a m Octob 2023 11:01 am Amlodipine 10 mg tablet Discont inued 10 MG PO Daily 30 September 05, 2023 12:00a m November 29, 2023 12:15 pm Lisinopril 5 mg tablet Discont inued 5 MG PO Daily 30 September 05, 2023 12:00a m October 18, [...] 12:00a m August 27, 2024 4:02p m [id number] Sul-Nacl-Salvador l-Asb-C (Plenvu) 140-9-5.2 gram powder in packet, sequential Discont inued 0 PO .COMPLEX 3 October 10, 2024 12:00a m October 24, 2024 11:48 am PO Immunizations Immunization Event Date Not Given Reason Dose Number Comedian Lot Number Vaccine Information Statement (VIS) Detail Administration Location COVID-19 mRNA, Comirnatluisito (Zedmo) December 30, 2020 COVID-19 mRNA, Comirnatluisito (Zedmo) January 21, 2021 Tetanus, Diphtheria, Pertussis (Tdap) March 15, 2014 Medical Equipment Device Date Implanted Device Details Multiple peripheral artery stent, bare-metal May 07, 2023 BERNARD: [id number] Issuing Agency: [id number] Device Id: [id number] Expiration Date: 2024-03-20 Serial Number: [id number] Procedures Procedure Date Performed Status US ankle/arm indices February 26, 2025 1:22pm active Relevant Diagnostic Tests and/or Laboratory Data Laboratory Results Test Collection Date/Time Result Date/Time Result Interpretation Reference Range Result Comment Performing Site Anion Gap January 27, 2025 9:59am January 27, 2025 9:59am 7.0 Activated Partial Thrombopl ast Time January 27, 2025 9:59am January 27, 2025 9:59am 24.2 sec 22.3-36.2 Prothromb Time Internati onal Ratio January 27, 2025 9:59am January 27, 2025 9:59am 1.09 DESIRED INR:2.0-3.0 CONDITIONS NOT LISTED BELOW2.5-3.5 FOR PROSTHETIC HEART VALVE REPLACEMENT2 .5-3.5 RECURRENT THROMBOSIS Basophils # (Auto) January 27, 2025 9:59am January 27, 2025 9:59am 0.0 10 3/uL 0.0-0.1 D-Dimer Quantitat kurt (PE/DVT) February 18, 2025 10:05pm February 18, 2025 10:05pm 0.56 mg/L FEU <=0.59 Increases in D-Dimer concentratio n observed withthromboe mbolic events can be variable due to localization ,size, and age of the thrombus. Therefore, a thromboembol icevent cannot be diagnosed with certainty on the basis of thereference range. D-Dimers may also be elevated for a varietyof disorders including advanced age, , coronarydise ase, cancer, liver disease, infection, inflammation ,hematoma, DIC, trauma, post-surgery , diabetes, thrombolytic or anticoagulan t therapy, stress, and generalizedh ospitalizati on. Troponin I High Sensitivi ty February 18, 2025 10:05pm February 18, 2025 10:05pm 11.3 pg/mL 4.0-76.1 CUT-OFF POINTS HAVE BEEN ESTABLISHED BASED ON THE FOURTHUNIVER TERRA DEFINITION OF MYOCARDIAL INFARCTION. THE UPPERREFEREN CE LIMIT (URL) OF TROPONIN, DEFINED THE 99THPERCENTI LE OF cTnI DISTRIBUTION IN A REFERENCE POPULATION,H BEEN CONFIRMED THE DECISION THRESHOLD FOR MIDIAGNOSIS. 99TH PERCENTILE = 76.2 PG/MLNOTE: HIGH-SENSITI VITY TROPONIN ASSAY IS NOT INTENDED TO BEUSED IN ISOLATION BUT SHOULD BE INTERPRETED IN CONJUNCTIONW ITH OTHER DIAGNOSTIC AND CLINICAL INFORMATION. Anion Gap February 18, 2025 10:05pm February 18, 2025 10:05pm 12.6 Basophils # (Auto) February 18, 2025 10:05pm February 18, 2025 10:05pm 0.1 10 3/uL 0.0-0.1 BUN/Creat inine Ratio January 27, 2025 9:59am January 27, 2025 9:59am 21.0 Prothromb in Time January 27, 2025 9:59am January 27, 2025 9:59am 11.5 sec 9.0-11.6 Basophils (%) (Auto) January 27, 2025 9:59am January 27, 2025 9:59am 0.2 % 0.2-2.0 Albumin/G lobulin Ratio February 18, 2025 10:05pm February 18, 2025 10:05pm 1.2 Basophils (%) (Auto) February 18, 2025 10:05pm February 18, 2025 10:05pm 0.7 % 0.2-2.0 Blood Urea Nitrogen January 27, 2025 9:59am January 27, 2025 9:59am 17.0 mg/dL 7.0-18.0 Eosinophi ls # (Auto) January 27, 2025 9:59am January 27, 2025 9:59am 0.0 10 3/uL 0.0-0.7 Albumin February 18, 2025 10:05pm February 18, 2025 10:05pm 3.0 g/dL Below low normal 3.4-5.0 Eosinophi ls # (Auto) February 18, 2025 10:05pm February 18, 2025 10:05pm 0.1 10 3/uL 0.0-0.7 Calcium Level January 27, 2025 9:59am January 27, 2025 9:59am 9.2 mg/dL 8.5-10.1 Eosinophi ls (%) (Auto) January 27, 2025 9:59am January 27, 2025 9:59am 0.1 % Below low normal 0.9-7.0 Alkaline Phosphata se February 18, 2025 10:05pm February 18, 2025 10:05pm 68 U/L 46-116 Eosinophi ls (%) (Auto) February 18, 2025 10:05pm February 18, 2025 10:05pm 1.1 % 0.9-7.0 Chloride Level January 27, 2025 9:59am January 27, 2025 9:59am 106 mmol/L 98-107 Hematocri t January 27, 2025 9:59am January 27, 2025 9:59am 38.0 % Below low normal 42.0-54.0 Alanine Aminotran sferase (ALT/SGPT ) February 18, 2025 10:05pm February 18, 2025 10:05pm 18 U/L 16-63 Hematocri t February 18, 2025 10:05pm February 18, 2025 10:05pm 39.7 % Below low normal 42.0-54.0 Carbon Dioxide Level January 27, 2025 9:59am January 27, 2025 9:59am 28.7 mmol/L 21.0-32.0 Hemoglobi n January 27, 2025 9:59am January 27, 2025 9:59am 13.0 g/dL Below low normal 14.0-18.0 Aspartate Amino Transf (AST/SGOT ) February 18, 2025 10:05pm February 18, 2025 10:05pm 11 U/L Below low normal 15-37 Hemoglobi n February 18, 2025 10:05pm February 18, 2025 10:05pm 13.8 g/dL Below low normal 14.0-18.0 Creatinin e January 27, 2025 9:59am January 27, 2025 9:59am 0.81 mg/dL 0.70-1.30 Immature Granulocy te # (Auto) January 27, 2025 9:59am January 27, 2025 9:59am 0.02 10 3/uL 0.00-0.03 BUN/Creat inine Ratio February 18, 2025 10:05pm February 18, 2025 10:05pm 12.6 Immature Granulocy te # (Auto) February 18, 2025 10:05pm February 18, 2025 10:05pm 0.02 10 3/uL 0.00-0.03 Estimated GFR () January 27, 2025 9:59am January 27, 2025 9:59am >60 >=60 mL/min/1.7 3m 2 Immature Granulocy te % (Auto) January 27, 2025 9:59am January 27, 2025 9:59am 0.2 % 0.0-0.5 Blood Urea Nitrogen February 18, 2025 10:05pm February 18, 2025 10:05pm 11.0 mg/dL 7.0-18.0 Immature Granulocy te % (Auto) February 18, 2025 10:05pm February 18, 2025 10:05pm 0.3 % 0.0-0.5 Estimated GFR (Non-Afri can Guyanese January 27, 2025 9:59am January 27, 2025 9:59am >60 >=60 mL/min/1.7 3m 2 Lymphocyt es # (Auto) January 27, 2025 9:59am January 27, 2025 9:59am 2.4 10 3/uL 1.2-3.8 Calcium Level February 18, 2025 10:05pm February 18, 2025 10:05pm 9.5 mg/dL 8.5-10.1 Lymphocyt es # (Auto) February 18, 2025 10:05pm February 18, 2025 10:05pm 2.1 10 3/uL 1.2-3.8 Glucose Level January 27, 2025 9:59am January 27, 2025 9:59am 89 mg/dL 74-106 Lymphocyt es (%) (Auto) January 27, 2025 9:59am January 27, 2025 9:59am 29.3 % 20.5-60.0 Chloride Level February 18, 2025 10:05pm February 18, 2025 10:05pm 108 mmol/L Above high normal 98-107 Lymphocyt es (%) (Auto) February 18, 2025 10:05pm February 18, 2025 10:05pm 28.8 % 20.5-60.0 Potassium Level January 27, 2025 9:59am January 27, 2025 9:59am 3.7 mmol/L 3.5-5.1 Mean Corpuscul ar Hemoglobi n January 27, 2025 9:59am January 27, 2025 9:59am 32.1 pg 25.9-34.0 Carbon Dioxide Level February 18, 2025 10:05pm February 18, 2025 10:05pm 27.5 mmol/L 21.0-32.0 Mean Corpuscul ar Hemoglobi n February 18, 2025 10:05pm February 18, 2025 10:05pm 32.5 pg 25.9-34.0 Sodium Level January 27, 2025 9:59am January 27, 2025 9:59am 138 mmol/L 136-145 Mean Corpuscul ar Hemoglobi n Concent January 27, 2025 9:59am January 27, 2025 9:59am 34.2 g/dL 29.9-35.2 Creatinin e February 18, 2025 10:05pm February 18, 2025 10:05pm 0.87 mg/dL 0.70-1.30 Mean Corpuscul ar Hemoglobi n Concent February 18, 2025 10:05pm February 18, 2025 10:05pm 34.8 g/dL 29.9-35.2 Mean Corpuscul ar Volume January 27, 2025 9:59am January 27, 2025 9:59am 93.8 fL 80.0-94.0 Estimated GFR () February 18, 2025 10:05pm February 18, 2025 10:05pm >60 >=60 mL/min/1.7 3m 2 Mean Corpuscul ar Volume February 18, 2025 10:05pm February 18, 2025 10:05pm 93.4 fL 80.0-94.0 Monocytes # (Auto) January 27, 2025 9:59am January 27, 2025 9:59am 0.4 10 3/uL 0.3-0.8 Estimated GFR (Non-Afri can Guyanese February 18, 2025 10:05pm February 18, 2025 10:05pm >60 >=60 mL/min/1.7 3m 2 Monocytes # (Auto) February 18, 2025 10:05pm February 18, 2025 10:05pm 0.4 10 3/uL 0.3-0.8 Monocytes (%) (Auto) January 27, 2025 9:59am January 27, 2025 9:59am 5.0 % 1.7-12.0 Globulin February 18, 2025 10:05pm February 18, 2025 10:05pm 2.5 g/dL Monocytes (%) (Auto) February 18, 2025 10:05pm February 18, 2025 10:05pm 5.6 % 1.7-12.0 Mean Platelet Volume January 27, 2025 9:59am January 27, 2025 9:59am 11.4 fL 9.5-13.5 Glucose Level February 18, 2025 10:05pm February 18, 2025 10:05pm 78 mg/dL 74-106 Mean Platelet Volume February 18, 2025 10:05pm February 18, 2025 10:05pm 11.4 fL 9.5-13.5 Neutrophi ls # (Auto) January 27, 2025 9:59am January 27, 2025 9:59am 5.4 10 3/uL 1.4-6.5 Potassium Level February 18, 2025 10:05pm February 18, 2025 10:05pm 4.1 mmol/L 3.5-5.1 Neutrophi ls # (Auto) February 18, 2025 10:05pm February 18, 2025 10:05pm 4.7 10 3/uL 1.4-6.5 Neutrophi ls (%) (Auto) January 27, 2025 9:59am January 27, 2025 9:59am 65.2 % 43.0-75.0 Sodium Level February 18, 2025 10:05pm February 18, 2025 10:05pm 144 mmol/L 136-145 Neutrophi ls (%) (Auto) February 18, 2025 10:05pm February 18, 2025 10:05pm 63.5 % 43.0-75.0 Platelet Count January 27, 2025 9:59am January 27, 2025 9:59am 214 10 3/uL 150-450 Total Bilirubin February 18, 2025 10:05pm February 18, 2025 10:05pm 0.8 mg/dL 0.2-1.0 Platelet Count February 18, 2025 10:05pm February 18, 2025 10:05pm 246 10 3/uL 150-450 Red Blood Count January 27, 2025 9:59am January 27, 2025 9:59am 4.05 10 6/uL Below low normal 4.70-6.10 Total Protein February 18, 2025 10:05pm February 18, 2025 10:05pm 5.5 g/dL Below low normal 6.4-8.2 Red Blood Count February 18, 2025 10:05pm February 18, 2025 10:05pm 4.25 10 6/uL Below low normal 4.70-6.10 Red Cell Distribut ion Width January 27, 2025 9:59am January 27, 2025 9:59am 14.1 % 11.0-15.0 Red Cell Distribut ion Width February 18, 2025 10:05pm February 18, 2025 10:05pm 13.4 % 11.0-15.0 Corrected White Blood Count January 27, 2025 9:59am January 27, 2025 9:59am 8.2 10 3/uL 4.0-11.0 Corrected White Blood Count February 18, 2025 10:05pm February 18, 2025 10:05pm 7.4 10 3/uL 4.0-11.0 Vital Signs Vital Reading Result Reference Range Collection Date/Time Height 68 [in_i] January 12, 2025 3:20pm Weight 80.73 kg January 12, 2025 3:20pm Heart Rate 76 /min 60-100 January 12, 2025 3:20pm BP Systolic 120 mm[Hg] 100-140 January 12, 2025 3:20pm BP Diastolic 74 mm[Hg] 60-100 January 12, 2025 3:20pm BMI (Body Mass Index) 27.0 kg/m2 December 172024 3:20pm Height 68 [in_i] February 19, 2025 11:25am Weight 72.12 kg February 19, 2025 11:25am Heart Rate 107 /min 60-100 February 19, 2025 11:25am Respiratory rate 16 /min 12-24 February 192024 11:25am Oxygen saturation by Pulse oximetry 98 % 95-100 February 19, 2025 11:25am BP Systolic 102 mm[Hg] 100-140 February 19, 2025 11:25am BP Diastolic 68 mm[Hg] 60-100 February 19, 2025 11:25am BMI (Body Mass Index) 24.1 kg/m2 2024 11:25am Advance Directives Advance Directive Response Recorded Date/ Time Advance Directives No July 07, 2023 9:27am Insurance Providers Guarantor Jovani Kong Address [address] [place] [phone] Contact Info. Home Phone: Payer Policy Id Subscriber's Name Subscriber Id Effective Date Expiration Date Nahum PALUMBO [id number] Jovani Kong [id number] Medicaid [id number] Jovani Kong [id number] Encounters Encounter Location(s) Arrival/Admit Date Discharge/Depart Date Provider(s) Departed Physician/Prov ider Office Visit -[facility] January 12, 2025 3:14pm January 12, 2025 3:38pm Harpreet Mcghee APRN Non-patient / Non-visit -[facility] January 27, 2025 9:59am Sarina Ramsey MD Non-patient / Non-visit -[facility] February 18, 2025 10:05pm Sofia Arias DO Departed Physician/Prov ider Office Visit -[facility] February 19, 2025 10:28am February 19, 2025 12:04pm Jax Hastings DO Departed Clinical -[facility] February 26, 2025 1:18pm February 26, 2025 1:19pm Jax Hastings DO Recent Diagnosis Onset Date Admit Date Colon polyps Unknown January 12, 2025 3:14pm Dyspepsia Unknown January 12, 2025 3:14pm GERD (gastroesophageal reflux disease) Unknown January 12, 2025 3:14pm Anxiety and depression Unknown February 19, 2025 10:28am Burning sensation Unknown February 19, 2025 10:28am Colon polyps Unknown February 19, 025 10:28am Hyperlipidemia Unknown February 19 025 10:28am Medicare annual wellness visit, initial Unknown February 19, 2025 10:28am Nicotine dependence with current use Unknown February 19, 2025 10:28am PAD (peripheral artery disease) Unknown February 19, 2025 10:28am S/P cervical discectomy Unknown 2024 10:28am Screening for prostate cancer Unknown Se 2024 10:28am Assessments Author Shilpi Lantigua [facility] Authored February 19, 2025 5:18pm Sooner if needed, the ER if concerns,The above note written by Shilpi Lantigua LPN acting as human recorder, note dictated by Dr. Jax Hastings Plan of Treatment Author Shilpi Lantig[facility] Authored February 19, 2025 5:18pm Celexa has worked well overa ll but he does voice increased irritability therefore I am in agreement with increasing from 10mg to 20mg. Patient voiced understanding. Burning/cramping sensation in the anterior aspect of the right upper thigh similar to when he had a DVT previously though this was thought to be unlikely after his ER visit yesterday after a negative Ddimer and troponin levels. He did have an arterial PVR 04/2023 noting severe claudication in the RLE with PAD and occluding right external iliac artery. Due to imaging findings, Dr. Harvey performed a right external iliac artery angioplasty and stenting, distal right common iliac artery angioplasty and stenting using the [place] [address] reentry device, intravascular ultrasound with interpretation 04/2023. I suggested repeating arterial studies, patient is in agreement. Order provided. Blood work reviewed with the patient. No signs of anemia or leukemia noted. Renal function, liver enzymes, and electrolytes are stable. Cholesterol overall is slightly elevated but he is on Pravastatin and Zetia and was started on Praluent by Cardiology in October. Encouraged patient monitor diet, increase water intake, and stay active. Rx escribed. Patient reports currently smoking about a 1/2 pack per day over the last 20 years but prior to that smoked approx. a pack to a pack and a half per day for around 30 years. Encouraged patient to continue with their efforts to reduce and/or quit smoking all together. Encouraged patient follow with Dr. Harvey as scheduled and advised depending on the results of his arterial studies, he may need to see him sooner than scheduled. Patient voiced understanding. PSA from 09/2024 is within normal range. Pathology reviewed with the patient from Colonoscopy/EGD performed 10/2024, encouraged he keep appointment scheduled in May for repeat Colonoscopy. Patient agreed and voiced understanding. Personalized health advice was given to the beneficiary including a written plan for screenings discussed and provided. Advanced care planning reviewed and/or information given as requested. The above visit was performed by Shilpi Lantigua LPN, under direct supervision of Dr. Jax Hastings. Document reviewed and amended by provider signed below. Encouraged he update Tdap and consider Shingrix. Patient does have multiple specialists involved in his care regarding his neck pain including neurosurgeon, Dr. Harris with , Dr. Ramsey for pain management, Dr. Cadena who he will be seeing in March for trigger point injections, and soon will be consulting with Dr. Ramirez for surgical implantation of the spinal cord pain stimulator since this did help alleviate a good majority of the cervical spine pain. Encouraged he follow with all specialists as scheduled. Author [facility] Authored January 28, 2025 10 :07am A 64-year-old male patient w ith diagnosis of GERD and dyspepsia, colon polyps Continue Protonix 40 mg twice daily as patient dyspeptic complaints and acid reflux symptoms have been well-controlled. Patient negative for breakthrough symptoms or alarm features such as dysphagia/odynophagia Patient scheduled for repeat colonoscopy in early May 2025 due to significant polyp burden 5+ polyps with over 1 cm in size. Last colonoscopy last EGD 11/05/2024, polyp pathology revealing for tubular adenomas with no high-grade dysplasia however patient had increased risk due to polyp size and polyp burden Follow-up after repeat colonoscopy Future Tests Future scheduled test information is unavailable Pending Tests Pending diagnostic test information is unavailable Future Visits Future appointment information is unavailable Referrals to Other Providers Referral information is unavailable Future Procedures Procedure Name Ordered Date Scheduled Date US ankle/arm indices February 26, 2025 1:22pm February 26, 2025 1:22pm Future Medications Future medication information is unavailable Patient Instructions Patient instructions are unavailable
--- OUTSIDE RECORDS SUMMARY | 2025-03-12 11:15 | XMS_ITS | Clinical Summary ---
Author Organization [facility] Healthcare Address [address] [place] [address] Care Team Providers Care Singer And Unloader Name Role Phone Jax Hastings DO Primary Care Provider [phone] Allergies Active Allergy Reactions Criticality Noted Date [...] 1 MG tablet 4 Active HYDROcodone-vanda taminophen (Cascade) 5-325 MG tablet 4 Active terbinafine (LamISIL [...] Description 02/04/2025 2:30 PM EDT Clinical Support [facility] [address] [facility] [address] [place] [address] Oziel Cadena MD Acute pain of right shoulder (Primary Dx); Nerve root and plexus disorder, unspecified; Acute pain of left shoulder 02/04/2025 Bamboo flowsheet [facility] [address] [place] [address] Ozile Cadena MD 02/04/2025 Travel 01/28/2025 Travel 01/27/2025 Telephone [facility] [address] [place] [address] Mayte Morrison MA 01/08/2025 10:20 AM EDT Office Visit [facility] [address] [place] [address] Anahi Franco PA Melanocytic nevus of trunk (Primary Dx); Seborrheic keratosis; Inflamed seborrheic keratosis; Actinic keratosis; Capillary angioma; History of SCC (squamous cell carcinoma) of skin 01/08/2025 Bamboo flowsheet [facility] [address] [place] [address] Anahi Franco PA 01/08/2025 Travel 01/07/2025 Travel 12/30/2024 Telephone [facility] [address] [place] [address] Ary Lugo RT. R 12/29/2024 1:30 PM EDT Ancillary Procedure [facility] [address] [place] [address] Arthrodesis status 12/29/2024 Refill [facility] [address] [place] [address] Amber Mi MA Cervical stenosis of spinal canal (Primary Dx) 12/29/2024 Travel 12/24/2024 2:00 PM EDT Clinical Support [facility] [address] [place] [address] Oziel Cadena MD Nerve root and plexus disorder, unspecified (Primary Dx); Acute pain of left shoulder 12/24/2024 Bamboo flowsheet [facility] [address] [place] [address] Oziel Cadena MD 12/24/2024 Travel 12/17/2024 Travel from Last 3 Months Immunizations Immunization [...] [facility] [address] [facility] [address] [place] [address] Oziel Cadena MD [address] [facility] [address] [place] [address] 01/08/2026 8:30 AM EDT Office Visit [facility] [address] [place] [address] Anahi Franco PA [address] [place] [address] Health Maintenance Due Date Last [...] Final Result from Last 3 Months Insurance [facility] MEDICARE Care Teams Singer And Unloader Relationship Specialty Start Date End Date Jax Hastings DO PCP - General Family Medicine 02/13/23
--- OUTSIDE RECORDS SUMMARY | 2025-03-12 11:15 | XMS_ITS | Clinical Summary ---
Author Organization [facility] Address [address] [facility], [address] [place] [address] Care Team Providers Care Boatswain'S Mate Name Role Phone Jax Hastings DO Primary Care Provider [phone] Allergies Active Allergy Reactions Criticality Noted Date [...] 11/25/2007 FIT/FOBT: Average risk 11/25/2007 Fecal-DNA (Cologuard): [place] ge risk 11/25/2007 Sigmoidoscopy/CT colonography 11/25/2007 Shingles vaccine (1 of 2) 2012 DTaP/Tdap/Td vaccine (2 - Td or Tdap) 03/15/2024 03/15/2014 Flu vaccine (#1) 01/16/2025 COVID-19 Vaccine (3 - 2024-2 6 season) 2025 01/21/2021, 12/30/2020 Respiratory Syncytial Virus (RSV) or age 60 [...] patient's age to complete this topic Insurance [facility] Care Teams Boatswain'S Mate Relationship Specialty Start Date End Date Jax Hastings DO [address] [facility] [address] [place] [address] PCP - General Family Medicine 06/13/23
--- OUTSIDE RECORDS SUMMARY | 2025-03-12 11:15 | XMS_ITS | Encounter Summary ---
Author Organization [facility] Address [address] [place] [address] Phone Care Team Providers Care Sludge Control Operator Name Role Phone Jax Hastings DO Primary Care Provider [phone] Helder Saleem MD Unavailable [phone] René Narayanan PA-C Unavailable [phone] Encounter Details Date Type Department Care Team (Late st Contact Info) Description 11/07/2024 Scanned Document [facility] [address] [place] [address] [place] [address] [place], [place] [id number] Social History Tobacco Use Types Packs/Day Years [...] any time in the past 12 m [facility], were you homeless or living in a longterm (including now)? No 04/09/2024 Sex and Gender [...] Care Team (Late st Contact Info) Description 09/25/2025 9:00 AM EDT Office Visit [facility] [address] [facility] [address] [place] [address] Doretha Harris MD [address] [place] [address] documented as of this encounter Goals Goal [...] documented as of this encounter Care Teams Sludge Control Operator Relationship Specialty Start Date End Date Jax Hastings DO [address] [place] [address] PCP - General 01/03/19 [place] [address] [place] [address] Consulting Physician Hematology and Oncology 10/05/23 René Narayanan PA-C [address] [place] [address] Physician Aged Or Disabled Care Worker Neurosurgery 12/12/23 documented as of this encounter
--- OUTSIDE RECORDS SUMMARY | 2025-03-12 11:15 | XMS_ITS | Clinical Summary ---
Author Organization [facility] Address [address] [place] [address] Phone Care Team Providers Care Equipment Service Engineer Name Role Phone DarlingJax Neisha JOSÉ Primary Care Provider [phone] Helder Saleem MD Unavailable [phone] René Narayanan PA-C Unavailable [phone] Allergies Active Allergy Reactions Criticality Noted [...] Date Type Department Care Team Description 12/30/2024 [facility] [address] [facility] [address] [place] [address] Asya Ashley MA from Last [...] any time in the past 12 m [facility], were you homeless or living in a skilled nursing (including now)? No 04/09/2024 Sex and Gender [...] Description 09/25/2025 9:00 AM EDT Office Visit [facility] [address] [facility] [address] [place] [address] Camille Harris MD [address] [place] [address] Health Maintenance Due Date Last Done Comments CT Colonography 1960 Colonoscopy 1960 Colorectal Cancer Screening 1960 FIT-DNA (Cologuard) 1960 FIT 1960 HIV Screening 1960 Lipid Panel 1960 Medicare Annual Wellness Visit (AWV) 1960 Sigmoidoscopy 1962 MMR Vaccines (1 of 1 - Standard series) 11/25/1963 Hepatitis C Screening 1980 Pneumococcal Vaccine (1 of 2 - PCV) 1981 Lung Cancer Screening 2012 PSA Prostate Cancer Screening 2012 Zoster Vaccines (1 of 2) 2012 RSV High Risk: (Elderly (60+) or Population) (1 - Risk 60-74 years 1-dose series) 2022 DTaP/Tdap/Td Vaccines (2 - Td or Tdap) 03/15/2024 03/15/2014 COVID-19 Vaccine (1 - season) 2025 Influenza Vaccine (#1) 2025 Diabetes Screening 04/10/2025 [...] Harris MD Medical Devices Implanted Type Area Foam Fabricator Device Identifier Shelf Expiration Date Model / Serial / Lot Allograft, Triad [employer]otic 6 X 11 X 14 - [id number] - [id number] Implanted:Qt y: 1 on 04/09/2024 by Rojas Edwards MD at [facility] Spinal Hardware N/A: [employer] 03/14/2028 [id number] / [id number] / Allograft, Triad Lordotic 6 X 11 X 14 - [id number] - [id number] Implanted:Qt y: 1 on 04/09/2024 by Rojas Edwards MD at [facility] Spinal Hardware N/A: [employer] 04/29/2028 [id number] / [id number] / Plate, Acp, 1.6v, 2 Level, 34mm - [id number] Implanted:Qt y: 1 on 04/09/2024 by Rojas Edwards MD at [facility] Spinal Hardware N/A: [employer] [id number] / / Screw, Acp, Self Drill, 3.5 X 17mm, Variable - [id number] Implanted:Qt y: 2 on 04/09/2024 by Rojas Edwards MD at [facility] Spinal Hardware N/A: [employer] [id number] / / 3.5 X 19mm Screw Implanted:Qt y: 4 on 04/09/2024 by Rojas Edwards MD at [facility] N/A: [employer] [id number] / / Description:per bill only brent r [...] LAB CHEMISTRY METHOD 04/10/2024 10:32 AM EDT [facility] Sodium 138 136 - 145 mmol/L LAB CHEMISTRY METHOD 04/10/2024 10:32 AM EDT [facility] Potassium 4.5 3.5 - 5.3 mmol/L LAB CHEMISTRY METHOD 04/10/2024 10:32 AM EDT [facility] Chloride 103 98 - 107 mmol/L LAB CHEMISTRY METHOD 04/10/2024 10:32 AM EDT [facility] Bicarbonate 26 21 - 32 mmol/L LAB CHEMISTRY METHOD 04/10/2024 10:32 AM EDT [facility] Anion Gap 14 10 - 20 mmol/L LAB CHEMISTRY METHOD 04/10/2024 10:32 AM EDT [facility] Urea Nitrogen 14 6 - 23 mg/dL LAB CHEMISTRY METHOD 04/10/2024 10:32 AM EDT [facility] Creatinine 0.86 0.50 - 1.30 mg/dL LAB CHEMISTRY METHOD 04/10/2024 10:32 AM EDT [facility] eGFR >90 >60 mL/min/1. 73m*2 LAB CHEMISTRY METHOD 04/10/2024 10:32 AM EDT [facility] Comment: Calculations of estimated GFR are performed using the 2020 CKD-EPI Study Refit equation without the race variable for the IDMS-Traceable creatinine methods. https://jasn.asnjournals.org/content/early//ASN.3482745879 Calcium 9.0 8.6 - 10.6 mg/dL LAB CHEMISTRY METHOD 04/10/2024 10:32 AM EDT [facility] Blood Venous blood specimen / Unknown Venipuncture / Unknown 04/10/2024 9:19 AM EDT 04/10/2024 10:03 AM EDT us Camille Harris MD LAB BLOOD ORDERABLES Final Resul t [facility] [id number] [place], [place] [id number] * XR DEXA bone density (02/13/2024 10:50 [...] Ruddy Lopez 12/29/2024 8:09 AM Dictation workstation: [id number] Narrative [facility] - 12/29/2024 8:09 AM EDT Interpreted By: Ruddy Lopez, STUDY: DEXA BONE DENSITY02/13/2024 10:50 am INDICATION: Signs/Symptoms:r/o osteoporosis, NEED AXIAL SKELETON IMAGES.. The patient is a 63 y/o year old M. ,M54.12 Radiculopathy, cervical region COMPARISON: None. ACCESSION NUMBER(S): [id number] ORDERING CLINICIAN: CAMILLE HARRIS TECHNIQUE: DEXA BONE [...] Radiculopathy, cervical region COMPARISON: None. ACCESSION NUMBER(S): [id number] ORDERING CLINICIAN: CAMILLE HARRIS TECHNIQUE: DEXA BONE [...] Ruddy Lopez 12/29/2024 8:09 AM Dictation workstation: [id number] us Camille Harris MD IMG DXA PROCEDURES Final Result [facility] from Last 3 Months or Most Recently Relevant to Health Maintenance Additional Health Concerns Active Problems Noted Date Diagnosed Date Patient has spine surgery 01/09/2024 Insurance [facility] MEDICARE PART A AND B [facility] MEDICARE PART A AND B Advance Directives For more information, please contact: [phone] (Available ) Documents on File Type Date Recorded Patient Lathe Hand Expl anation Living Will 10/05/2023 9:39 AM [...] Discussion Completed Decision Maker: Patient Care Teams Equipment Service Engineer Relationship Specialty Start Date End Date Jax Hastings DO [address] [place] [address] PCP - General 01/03/19 [place] [address] [place] [address] Consulting Physician Hematology and Oncology 10/05/23 René Narayanan PA-C [address] [place] [address] Physician Compound Filler Neurosurgery 12/12/23
--- OUTSIDE RECORDS SUMMARY | 2025-03-12 11:16 | XMS_ITS | Encounter Summary ---
Author Organization [facility] Address [address] [place] [address] Phone Care Team Providers Care Sterilizer Machine Operator Name Role Phone Jax Hastings DO Primary Care Provider [phone] Helder Saleem MD Unavailable [phone] René Narayanan PA-C Unavailable [phone] Encounter Details Date Type Department Care Team (Late st Contact Info) Description 04/10/2024 Scanned Document [facility] [address] [place] [address] Doretha Harris MD [address] [place], [place] [id number] Social History Tobacco Use Types Packs/Day Years [...] any time in the past 12 m [facility], were you homeless or living in a penitentiary (including now)? No 04/09/2024 Sex and Gender [...] as of this encounter Functional Status * Question Answer Date of Assessment Author BP 118/58 04/10/2024 12:11 PM EDT Jose Cruz Moffett Pulse 82 04/10/2024 12:11 PM EDT Jose Cruz Moffett * Menendez Fall Risk Question Answer Date of Assessment Author History of Falling, Immediat e or Within 3 Months 0 04/10/2024 7:00 AM EDT Whitney Kaufman RN Secondary Diagnosis 15 04/10/2024 7:00 AM ED T Whitney Kaufman senior warehouse clerk Aid 0 04/10/2024 7:00 AM EDT Whitney Waldron RN Intravenous Therapy/Heparin Lock 20 04/10/20 7:00 AM EDT Kaufman, Whitney A, RN Gait/Transferring 0 04/10/2024 7:00 AM EDWhitney Aldridge RN Mental Status 0 04/10/2024 7:00 AM EDT Whitney Perdomo RN Menendez Fall Risk Score 35 04/10/2024 7:00 AM EDT Whitney Kaufman RN * Edy Scale Question Answer Date of Assessment Author Sensory Perceptions 4 04/10/2024 8:00 AM ED T Whitney Kaufman RN Moisture 4 04/10/2024 8:00 AM EDT Whitney Alvarez RN Activity 3 04/10/2024 8:00 AM TREYT Whitney Alvarez RN Mobility 4 04/10/2024 8:00 AM Whitney Duncan RN Nutrition 3 04/10/2024 8:00 AM Whitney Duncan RN Friction and Shear 3 04/10/2024 8:00 AM Whitney Johnson RN Edy Scale Score 21 04/10/2024 8:00 AM EDT Whitney Kaufman RN * Question Answer Date of Assessment Author Heels/Feet Heels elevated off bed 04/10/2024 7:00 AM Whitney Johnson RN * AM-PAC Basic Mobility Question Answer Date of Assessment Author Turning from your back to yo ur side while in a flat bed without using bedrails 4 04/10/2024 7:00 AM Whitney Johnson RN Moving from lying on your ba ck to sitting on the side of a flat bed without using bedrails 4 04/10/2024 7:00 AM Daisy Johnson RN Moving to and from bed to ch air (including a wheelchair) 4 04/10/2024 7:00 AM Hector Johnson RN Standing up from a chair usi ng your arms (e.g. wheelchair or bedside chair) 4 04/10/2024 7:00 AM Whitney Johnson RN To walk in hospital room 4 04/10/2024 7:00 AM Whitney Johnson RN Climbing 3-5 steps with railing 4 7:00 AM Whitney Johnson RN Basic Mobility - Total Score 24 04/10/2024 7 :00 AM Whitney Johnson RN * AM-PAC Daily Activity Question Answer Date of Assessment Author Putting on and taking off re gular lower body clothing 4 04/10/2024 7:00 AM Whitney Johnson RN Bathing (including washing, rinsing, drying) 4 04/10/2024 7:00 AM Whitney Johnson RN Putting on and taking off re gular upper body clothing 4 04/10/2024 7:00 AM Whitney Johnson RN Toileting, which includes us ing toilet, bedpan or urinal 4 04/10/2024 7:00 AM Hector Johnson RN Taking care of personal [place] such as brushing teeth 4 04/10/2024 7:00 AM Daisy Johnson RN Eating Meals 4 04/10/2024 7:00 AM Whitney Duncan RN Daily Activity - Total Score 24 04/10/2024 7 :00 AM Whitney Johnson RN documented as of this encounter Plan of Treatment Upcoming Encounters Date Type Department Care Team (Late st Contact Info) Description 09/25/2025 9:00 AM EDT Office Visit [facility] [address] [place], [place] [address] [place] [address] Doretha Harris MD [address] [place] [address] documented as of this encounter Goals Goal [...] documented as of this encounter Care Teams Sterilizer Machine Operator Relationship Specialty Start Date End Date Jax Hastings DO [address] [place] [address] PCP - General 01/03/19 [place] [address] [place] [address] Consulting Physician Hematology and Oncology 10/05/23 René Narayanan PA-C [address] [place] [address] Physician Supervisor Production Neurosurgery 12/12/23 documented as of this encounter
--- OUTSIDE RECORDS SUMMARY | 2025-03-12 11:16 | XMS_ITS | Encounter Summary ---
Author Organization [facility] Address [address] [place] [address] Phone Care Team Providers Care Business Systems Administrator Name Role Phone Jax Hastings DO Primary Care Provider [phone] Helder Saleem MD Unavailable [phone] René Narayanan PA-C Unavailable [phone] Encounter Details Date Type Department Care Team (Late st Contact Info) Description 12/18/2022 Patient Risk Score ACO Care Management [address] [place] [address] Social History Tobacco Use Types [...] Description 09/25/2025 9:00 AM EDT Office Visit [facility] [address] [facility] [address] [place] [address] Doretha Harris MD [address] [place], [place] [phone] documented as of this encounter Visit Diagnoses Not on filedocumented in this encounter Care Teams Business Systems Administrator Relationship Specialty Start Date End Date Jax Hastings DO [address] [place] [address] PCP - General 01/03/19 [place] [address] [place] [address] Consulting Physician Hematology and Oncology 10/05/23 René Narayanan PA-C [address] [place] [address] Physician Analytical Engineer Neurosurgery 12/12/23 documented as of this encounter
--- OUTSIDE RECORDS SUMMARY | 2025-03-12 11:16 | XMS_ITS | Encounter Summary ---
Author Organization [facility] Address [address] [place] [address] Phone Care Team Providers Care Tripe Scraper Name Role Phone Jax Hastings DO Primary Care Provider [phone] Helder Saleem MD Unavailable [phone] René Narayanan PA-C Unavailable [phone] Encounter Details Date Type Department Care Team (Late st Contact Info) Description 01/09/2024 Scanned Document [facility] [address] [place] [address] Doretha Harris MD [address] [place], [place] [phone] Social History Tobacco Use Types Packs/Day Years [...] Description 09/25/2025 9:00 AM EDT Office Visit [facility] [address] [facility] [address] [place] [address] Doretha Harris MD [address] [place] [address] documented as of this encounter Goals Goal [...] documented as of this encounter Care Teams Tripe Scraper Relationship Specialty Start Date End Date Jax Hastings DO [address] [place] [address] PCP - General 01/03/19 [place] [address] [place] [address] Consulting Physician Hematology and Oncology 10/05/23 René Narayanan PA-C [address] [place] [address] Physician Senior Windows Administrator Neurosurgery 12/12/23 documented as of this encounter
--- OUTSIDE RECORDS SUMMARY | 2025-03-12 11:16 | XMS_ITS | Encounter Summary ---
Author Organization [facility] Address [address] [place] [address] Care Team Providers Care Russian Language Instructor Name Role Phone Jax Hastings Primary Care Provider Encounter Details Date Type Department Care Team (Late Contact Info) Description 05/04/2023 External Result Encounter [facility] External Department Unsolicited Nikole Mota NP [address] [address] Social History Tobacco Use Types Packs/Day Years [...] 03/18/2025 2:20 PM EDT Clinical Support [facility] [address] [place] [address] Oziel Cadena MD [address] [place] [address] 01/08/2026 8:30 AM EDT Office Visit [facility] [address] [place] [address] Anahi Franco PA [address] [place] [address] documented as of this encounter Procedures [...] Alber Goodson M.D.05/04/2023 4:34 PM Dictation Location: [place] [address] Transcribed By: [facility] 05/04/23 1634 Dictated By: Alber Goodson II, MD 05/04/23 1549 Signed By: <Electronically signed by Alber Goodson II, MD in OV> 05/04/23 1634 Narrative 05/07/2023 4:31 PM EST [facility] [address] [address] [address] Scan Report Signed Patient: Jovani Kong MR#: [id number] : 1960 Acct:[id number] Age/Sex: 62 / M ADM Date: 05/04/23 Loc: CT Room: Type: [facility] Attending Dr: Nikole Mota APRN, HOSEMAN-C Copies to: Nikole Mota APRN, CNP Ordering Provider: Nikole Mota APRN, CNP Date of Service: 05/04/23 CT/CT angio neck: H53.9, I65.23, I65.1, I66.09, I65.29 ([id number]) CT/CT angio head: H53.9, I65.23, I65.1, I66.09, [...] head Procedure Note Radiology, Radiologist, - 05/07/2023 [facility] [place] [address] [place] [address] CT Scan Report Signed Patient: Jovani Kong CMR#: [id number] : 1960Acct:[id number] Age/Sex: 62 / MADM Date: 05/04/23 Loc: CT Room:Type: [facility] Attending Dr: Nikole Mota APRN, HOSEMAN-C Copies to: Nikole Mota APRN,CIGAR PACKING EXAMINER Ordering Provider: Nikole Mota APRN,LUCIO Date of Service: 05/04/23 CT/CT angio neck: H53.9, I65.23, I65.1, I66.09,I65.29 ([id number]) CT/CT angio head: H53.9, I65.23, I65.1, I66.09, [...] Alber Goodson M.D.05/04/2023 4:34 PM Dictation Location: [place] [address] Transcribed By: [facility] 05/04/23 1634 Dictated By: Alber Goodson II, MD 05/04/23 1549 Signed By: <Electronically signed by Alber Goodson II, MD inOV> 05/04/23 1634 us Nikole Mota HOSEMAN IMG CT PROCEDURES Final Result documented in this encounter Visit Diagnoses Not on filedocumented in this encounter Care Teams Russian Language Instructor Relationship Specialty Start Date End Date Jax Hastings DO PCP - General Family Medicine 02/13/23 documented as of this encounter
--- OUTSIDE RECORDS SUMMARY | 2025-03-12 11:16 | XMS_ITS | Encounter Summary ---
Author Organization [facility] Address [address] [place] [address] Phone Care Team Providers Care Zipper Repairer Name Role Phone Jax Hastings DO Primary Care Provider [phone] Helder Saleem MD Unavailable [phone] René Narayanan PA-C Unavailable [phone] Encounter Details Date Type Department Care Team (Late st Contact Info) Description 01/11/2024 Scanned Document [facility] [address] [place] [address] Doretha Harrsi MD [address] [place], [place] [id number] Social History Tobacco Use Types Packs/Day Years [...] Description 09/25/2025 9:00 AM EDT Office Visit [facility] [address] [facility] [address] [place] [address] Doretha Harris MD [address] [place] [address] documented as of this encounter Goals Goal [...] documented as of this encounter Care Teams Zipper Repairer Relationship Specialty Start Date End Date Jax Hastings DO [address] [place] [address] PCP - General 01/03/19 [place] [address] [place] [address] Consulting Physician Hematology and Oncology 10/05/23 René Narayanan PA-C [address] [place] [address] Physician Vice President Planning Neurosurgery 12/12/23 documented as of this encounter
--- OUTSIDE RECORDS SUMMARY | 2025-03-12 11:16 | XMS_ITS | Encounter Summary ---
Author Organization [facility] Address [address] [place] [address] Phone Care Team Providers Care Twisting Machine Operator Name Role Phone Jax Hastings DO Primary Care Provider [phone] Helder Saleem MD Unavailable [phone] René Narayanan PA-C Unavailable [phone] Encounter Details Date Type Department Care Team (Late st Contact Info) Description 01/18/2023 Patient Risk Score ACO Care Management [address] [place] [address] Social History Tobacco Use Types [...] 09/25/2025 9:00 AM EDT Office Visit [facility] [address] [facility] [address] [place] [address] Doretha Harris MD [address] [place], [place] [id number] documented as of this encounter Visit Diagnoses Not on filedocumented in this encounter Care Teams Twisting Machine Operator Relationship Specialty Start Date End Date Jax Hastings DO [address] [place] [address] PCP - General 01/03/19 [place] [address] [place] [address] Consulting Physician Hematology and Oncology 10/05/23 René Narayanan PA-C [address] [place] [address] Physician Merchandising Manager Neurosurgery 12/12/23 documented as of this encounter
--- OUTSIDE RECORDS SUMMARY | 2025-03-12 11:16 | XMS_ITS | Encounter Summary ---
Author Organization [facility] Address [address] [place] [address] Care Team Providers Care Garbage Worker Name Role Phone Andreagideon Jax Neisha JOSÉ Primary Care Provider Encounter Details Date Type Department Care Team (Late Contact Info) Description 03/13/2023 Abstract [facility] [address] [place] [address] Oziel Cadena MD [address] [address] Social History Tobacco Use Types Packs/Day Years [...] [facility] [address] [facility] [address] [place] [address] Oziel Cadena MD 6517 [facility] [address] [id number] 01/08/2026 8:30 AM EDT Office Visit [facility] [address] [facility] [address] [place] [address] Anahi Franco PA [address] [facility] [address] [place] [address] documented as of this encounter Visit Diagnoses Not on filedocumented in this encounter Care Teams Garbage Worker Relationship Specialty Start Date End Date Jax Hastings DO PCP - General Family Medicine 02/13/23 documented as of this encounter
--- OUTSIDE RECORDS SUMMARY | 2025-03-12 11:16 | XMS_ITS | Encounter Summary ---
Author Organization [facility] Address [address] [place] [address] Phone Care Team Providers Care Convenience Recycle Center Tech Name Role Phone Jax Hastings DO Primary Care Provider [phone] Helder Saleem MD Unavailable [phone] René Narayanan PA-C Unavailable [phone] Encounter Details Date Type Department Care Team (Late st Contact Info) Description 02/18/2023 Patient Risk Score ACO Care Management [address] [place] [address] Social History Tobacco Use Types [...] 9:00 AM EDT Office Visit [facility] [address] [facility] [address] [place] [address] Doretha Harris MD [address] [place], [place] [phone] documented as of this encounter Visit Diagnoses Not on filedocumented in this encounter Care Teams Convenience Recycle Center Tech Relationship Specialty Start Date End Date Jax Hastings DO [address] [place] [address] PCP - General 01/03/19 [place] [address] [place] [address] Consulting Physician Hematology and Oncology 10/05/23 René Narayanan PA-C [address] [place] [address] Physician Antenna Installer Neurosurgery 12/12/23 documented as of this encounter
--- OUTSIDE RECORDS SUMMARY | 2025-03-12 11:16 | XMS_ITS | Clinical Summary ---
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 AST 9(L) 14 - 40 U/L 10/26/2023 9:[address] [facility] ALT 10 10 - 54 U/L 10/26/2023 9:[address] [facility] Glucose 89 74 - 99 mg/dL 10/26/2023 9:[address] [facility] Comment: The [place] Diabetes Association (ADA) provides guidance for cutoff [...] Standards of Medical Care in Diabetes 2016, [place] Diabetes Association. Diabetes Care. 2016.39(Suppl 1). BUN 16 9 - 24 mg/dL 10/26/2023 9:[address] [facility] Creatinine 1.01 0.73 - 1.22 mg/dL 10/26/2023 9:[address] [facility] Sodium 141 136 - 144 mmol/L 10/26/2023 9:[address] [facility] Potassium 4.0 3.7 - 5.1 mmol/L 10/26/2023 9:[address] [facility] Chloride 106(H) 97 - 105 mmol/L 10/26/2023 9:[address] [facility] CO2 27 22 - 30 mmol/L 10/26/2023 9:[address] [facility] Anion Gap 8(L) 9 - 18 mmol/L 10/26/2023 9:[address] [facility] Estimated Glomerular Filtration Rate 85 >=60 mL/min/1. 73m 10/26/2023 9:39 AM EDT [facility] Comment:Estimated Glomerular Filtration Rate (eGFR) is [...] 9:02 AM EDT 10/26/2023 9:11 AM EDT Memo Acevedo MD LABORATORY Final Result [facility] [address] [place] [address] from Last 3 Months or Most Recently Relevant to Health Maintenance Insurance [facility] [employer] MEDICARE Care Teams Rotary Derrick Operator Relationship Specialty Start Date End Date Jax Hastings [address] [place] [address] PCP - General Family Medicine 11/20/18 Jax Hastings [address] [place] [address] Referring Family Medicine 11/20/18 Oziel Cadena MD 5319 [facility] [address] [address] Referring Neurology 08/18/22
--- OUTSIDE RECORDS SUMMARY | 2025-03-12 11:16 | XMS_ITS | Encounter Summary ---
Author Organization [facility] Address [address] [place] [address] Phone Care Team Providers Care Full Stack Engineer Name Role Phone Jax Hastings DO Primary Care Provider [phone] Helder Saleem MD Unavailable [phone] René Narayanan PA-C Unavailable [phone] Encounter Details Date Type Department Care Team (Late st Contact Info) Description 10/10/2024 Scanned Document [facility] [address] [facility] [address] [place] [address] Doretha Harris MD [address] [place], [place] [phone] Social History Tobacco Use Types Packs/Day Years [...] any time in the past [address] [facility], were you homeless or living in a fci (including now)? No 04/09/2024 Sex and Gender [...] as of this encounter Functional Status * BP Answer Date of Assessment Author 100/60 10/13/2024 9:06 AM EDT Asya Vogel MA * Pulse Answer Date of Assessment Author 75 10/13/2024 9:06 AM EDT Asya Vogel MA * Communicable Disease Screening Question Answer Date of Assessment Author Do you have any of the following new or worsening symptoms? None of these 10/13/2024 8:51 AM EDT Agueda Faulkner M A * Question Answer Date of Assessment Author Little interest or pleasure in doing things Several days 10/13/2024 9:06 AM EDT Asya Unger MA Feeling down, depressed, or hopeless Several days 10/13/2024 9:06 AM EDT Asya Ashley MA * Over the past 2 weeks, how [...] Description 09/25/2025 9:00 AM EDT Office Visit [facility] [address] [facility] [address] [place] [address] oDretha Harris MD 7255 [place] [address] documented as of this encounter Goals Goal [...] documented as of this encounter Care Teams Full Stack Engineer Relationship Specialty Start Date End Date Jax Hastings DO [address] [place] [address] PCP - General 01/03/19 [place] [address] [place] [address] Consulting Physician Hematology and Oncology 10/05/23 René Narayanan PA-C [address] [place] [address] Physician Manufacturing Shift Supervisor Neurosurgery 12/12/23 documented as of this encounter
--- OUTSIDE RECORDS SUMMARY | 2025-03-12 11:16 | XMS_ITS | Encounter Summary ---
Author Organization [facility] Address [address] [place] [address] Phone Care Team Providers Care Stripper Preliminary Name Role Phone Jax Hastings DO Primary Care Provider [phone] Jax Hastings DO Unavailable Jax Hastings DO Unavailable Helder Saleem MD Unavailable [phone] René Narayanan PA-C Unavailable [phone] Encounter Details Date Type Department Care Team (Late st Contact Info) Description 02/13/2019 Orders Only [facility] [address] [place] [address] Conversion, Onbase Social History Tobacco Use Types [...] [facility] [address] [facility] [address] [place] [address] Doretha Harris MD [address] [place], [place] [phone] Scheduled Orders Name Type Priority Associated Diagnoses Belén barnes Schedule OUTSIDE LAB SCAN Lab Ordered: 02/13/2019 documented as of this encounter Visit Diagnoses Not on filedocumented in this encounter Care Teams Stripper Preliminary Relationship Specialty Start Date End Date Jax Hastings DO [address] [place] [address] PCP - General 01/03/19 Jax Hastings DO [address] [place], [place] [address] PCP - [facility] PCP 09/16/21 11/15/22 Jax Hastings DO [address] [place], [place] 57[address] [facility] 10/16/21 12/15/22 [place] [address] [place] [address] Consulting Physician Hematology and Oncology 10/05/23 René Narayanan PA-C [address] [place] [address] Physician Chief Operator Synthesis Neurosurgery 12/12/23 documented as of this encounter
--- OUTSIDE RECORDS SUMMARY | 2025-03-12 11:16 | XMS_ITS | Encounter Summary ---
Author Organization [facility] Address [address] [facility] [place] [address] Care Team Providers Care Interrelated Special Education Teacher Name Role Phone Jax Hastings DO Primary Care Provider [phone] Encounter Details Date Type Department Care Team (Late st Contact Info) Description 04/03/2023 Abstract [facility] [address] [place] [address] Nikole Mota, HEAD OF ENGLISH [address] [place] [address] Social History Tobacco Use Types Packs/Day Years [...] [facility] [address] [facility] [address] [place] [address] Oziel Cadena MD 9431 [facility] [address] [id number] 01/08/2026 8:30 AM EDT Office Visit [facility] [address] [facility] [address] [place] [address] Anahi Franco PA [address] [facility] [address] [place] [address] documented as of this encounter Visit Diagnoses Not on filedocumented in this encounter Care Teams Interrelated Special Education Teacher Relationship Specialty Start Date End Date Jax Hastings DO PCP - General Family Medicine 02/13/23 documented as of this encounter
--- OUTSIDE RECORDS SUMMARY | 2025-03-12 11:16 | XMS_ITS | Clinical Summary ---
Author Organization [facility] Address [address] [place] [address] Care Team Providers Care Lcsw Name Role Phone Jax Hastings Primary Care Provider [phone] Encounters Date Type Department Care Team Description 02/13/2025 - 02/13/2025 11:59 PM EDT Hospital Encounter [facility] Radiology External Films [address] [place] [address] Discharge Disposition: Home or Self Care () 02/13/2025 Telephone [facility] Surgery Clinic [address] [place] [address] Ayah Ortega MA from Last 3 Months Social History Tobacco Use Types Packs/Day Years Used Date Smoking Tobacco: Never Assessed Sex and Gender Information Value Date Recorded Sex Assigned at Male 02/13/2025 1:20 PM EDT Legal Sex Male 9:31 AM EDT Gender Identity Male 02/13/2025 1:20 PM EDT Sexual Orientation Choose not to disclose 2024 1:20 PM EDT Plan of Treatment Upcoming Encounters Date Type Department Care Team (Late st Contact Info) Description 03/24/2025 10:30 AM EDT Consult [facility] Surgery [facility] [address] [facility] [place] [address] Isaias Ramirez MD [address] [place] [address] Health Maintenance Due Date Last Done Comments CT Colonography 1962 Colonoscopy 1962 Colorectal Cancer Screening 1962 FIT-DNA 1962 FIT 1962 FOBT 1962 Medicare Annual Wellness (AWV) 1962 Sigmoidoscopy 1962 Depression Screening 1974 Zoster Vaccines (1 of 2) 2012 Adult Tetanus 03/15/2024 03/15/2014 COVID-19 Vaccine (3 - 2024-2 6 season) 2025 01/21/2021, 12/30/2020 Influenza Vaccine (#1) 2025 HIB Vaccines Aged Out No longer eligi ble based on patient's age to complete this topic HPV Vaccines Aged Out No longer eligi ble based on patient's age to complete this topic IPV Vaccines Aged Out No longer eligi ble based on patient's age to complete this topic Meningococcal B Vaccine Aged Out No l onger eligible based on patient's age to complete this topic Meningococcal Vaccine Aged Out No chanel lambert eligible based on patient's age to complete this topic Pneumococcal Vaccine: Pediatrics (0 to 5 Years) and At-Risk Patients (6 to 64 Years) Aged Out No longer eligible b ased on patient's age to complete this topic Rotavirus Vaccines Aged Out No longer eligible based on patient's age to complete this topic Procedures Procedure Name Priority Date/Time Associated Diagnosis Comments MR TRANSFER OF OUTSIDE FILMS Routine 02/13/2025 12:00 AM EDT from Last 3 Months Results * MR transfer of outside films (02/13/2025 12:00 AM EDT) Narrative IMAGING - 02/13/2025 10:59 AM EDT This order has been auto-finalized and does not contain a result. Isaias Ramirez MD IMG MRI PROCEDURES Final Result IMAGING from Last 3 Months Insurance MEDICARE Member Subscriber Plan / Payer (Ef fective 2025-Present) Name:Jovani Kong Member ID:[id number] Relation to Subscriber:Self Name:Jovani Kong Subscriber ID:[id number] Payer ID:[id number] Group ID:Not on file Type:Medicare Address: [id number] [facility] Care Teams Lcsw Relationship Specialty Start Date End Date Jax Hastings DO [address] [place] [address] PCP - General Family Medicine 02/13/25
--- OUTSIDE RECORDS SUMMARY | 2025-03-12 11:16 | XMS_ITS | Encounter Summary ---
Author Organization [facility] Address [address] [place] [address] Phone Care Team Providers Care Sericulturist Name Role Phone Jax Hastings DO Primary Care Provider [phone] Helder Saleem MD Unavailable [phone] René Narayanan PA-C Unavailable [phone] Encounter Details Date Type Department Care Team (Late st Contact Info) Description 01/14/2024 Scanned Document [facility] [address] [place] [address] Doretha Harris MD [address] [place], [place] [address] Social History Tobacco Use Types Packs/Day Years [...] Description 09/25/2025 9:00 AM EDT Office Visit [facility] [address] [facility] [address] [place] [address] Doretha Harris MD [address] [place] [address] documented as of this encounter Goals Goal [...] documented as of this encounter Care Teams Sericulturist Relationship Specialty Start Date End Date Jax Hastings DO [address] [place] [address] PCP - General 01/03/19 [place] [address] [place] [address] Consulting Physician Hematology and Oncology 10/05/23 René Narayanan PA-C [address] [place] [address] Physician Drug Safety Associate Neurosurgery 12/12/23 documented as of this encounter
--- OUTSIDE RECORDS SUMMARY | 2025-03-12 11:16 | XMS_ITS | Encounter Summary ---
Author Organization [facility] Address [address] [place] [address] Care Team Providers Care Edge Bonder Name Role Phone AndreaJax meneses Neisha JOSÉ Primary Care Provider [phone] Encounter Details Date Type Department Care Team (Late st Contact Info) Description 02/19/2023 Abstract [facility] [address] [facility] [address] [place] [address] Mary Henderson, NICK [address] [facility] [address] [place] [address] Social History Tobacco Use Types Packs/Day Years [...] Clinical Support [facility] [address] [facility] [address] [place] [address] Oziel Cadena MD [address] [facility] [address] [place] [address] 01/08/2026 8:30 AM EDT Office Visit [facility] [address] [place] [address] Anahi Franco PA [address] [place] [address] documented as of this encounter Visit Diagnoses Not on filedocumented in this encounter Care Teams Edge Bonder Relationship Specialty Start Date End Date Jax Hastings DO PCP - General Family Medicine 02/13/23 documented as of this encounter
--- OUTSIDE RECORDS SUMMARY | 2025-03-12 11:16 | XMS_ITS | Encounter Summary ---
Author Organization [facility] Address [address] [place] [address] Phone Care Team Providers Care Box Truck Owner Operator Name Role Phone Jax Hastings DO Primary Care Provider [phone] Helder Saleem MD Unavailable [phone] René Narayanan PA-C Unavailable [phone] Encounter Details Date Type Department Care Team (Late st Contact Info) Description 12/12/2023 Scanned Document [facility] [address] [place] [address] René Narayanan PA-C [address] [facility] [address], [facility] [address] [place], [place] [phone] Social History Tobacco Use Types Packs/Day Years [...] Question Answer Date of Assessment Author BP 133/59 12/13/2023 10:00 AM EDT Autumn Wynn MA Pulse 92 12/13/2023 10:00 AM EDT Autumn Wynn MA * Menendez Fall Risk Question Answer Date of Assessment Author History of Falling, Immediat e or Within 3 Months 0 12/13/2023 10:29 AM EDT Alondra Patel RN Secondary Diagnosis 0 12/13/2023 10:29 AM E Alondra Li RN Ambulatory Aid 0 12/13/2023 10:29 AM EDT Alondra Mohan RN Intravenous Therapy/Heparin Lock 0 12/13/2023 10:29 AM EDT Alondra Patel RN Gait/Transferring 0 12/13/2023 10:29 AM EDT Alondra Patel RN Mental Status 0 12/13/2023 10:29 AM EDT Alondra Rodriguez RN Menendez Fall Risk Score 0 12/13/2023 10:29 AM EDT Alondra Patel RN * Edy Scale Question Answer Date of Assessment Author Sensory Perceptions 3 12/13/2023 10:29 AM E Alondra Li RN Moisture 4 12/13/2023 10:29 AM EDT Alondra Guerrero RN Activity 4 12/13/2023 10:29 AM EDT Alondra Guerrero RN Mobility 4 12/13/2023 10:29 AM EDT Alondra Guerrero RN Nutrition 3 12/13/2023 10:29 AM EDT Alondra Guerrero RN Friction and Shear 3 12/13/2023 10:29 AM ED T Alondra Patel RN Edy Scale Score 21 12/13/2023 10:29 AM ED T Alondra Patel RN * Communicable Disease Screening Question Answer Date of Assessment Author Do you have any of the following new or worsening symptoms? None of these 12/13/2023 7:07 AM EDT Carleen Mckinney * Question Answer Date of Assessment Author Little interest or pleasure in doing things Several days 12/12/2023 1:10 PM EDT Asya Garrison MA Feeling down, depressed, or hopeless Several days 12/12/2023 1:10 PM EDT Asya Ashley MA * Over the [...] Description 09/25/2025 9:00 AM EDT Office Visit [facility] [address] [address] Doretha Harris MD 7255 [place] [address] documented as of this encounter Visit Diagnoses Not on filedocumented in this encounter Additional Health Concerns Assessment Noted Time A fall risk assessment has been complete d for the patient 12/12/2023 1:10 PM EDT documented as of this encounter Care Teams Box Truck Owner Operator Relationship Specialty Start Date End Date Jax Hastings DO [address] [place] [address] PCP - General 01/03/19 [place] [address] [place] [address] Consulting Physician Hematology and Oncology 10/05/23 René Narayanan PA-C [address] [place] [address] Physician Associate Programmer Analyst Neurosurgery 12/12/23 documented as of this encounter
--- OUTSIDE RECORDS SUMMARY | 2025-03-12 11:16 | XMS_ITS | Encounter Summary ---
Author Organization [facility] Address [address] [place] [address] Care Team Providers Care Screening Tech Name Role Phone Jax Hastings Neisha JOSÉ Primary Care Provider [phone] Encounter Details Date Type Department Care Team (Late st Contact Info) Description 12/11/2023 Orders Only [facility] [address], [place] [address] Amber Mi MA Social History Tobacco Use [...] [facility] [address] [place] [address] Oziel Cadena MD [address], [place] [address] 01/08/2026 8:30 AM EDT Office Visit [facility] [address] [place] [address] Anahi Franco PA [address] [place] [address] documented as of this encounter Visit Diagnoses Not on filedocumented in this encounter Care Teams Screening Tech Relationship Specialty Start Date End Date Jax Hastings DO PCP - General Family Medicine 02/13/23 documented as of this encounter
--- OUTSIDE RECORDS SUMMARY | 2025-03-12 11:22 | XMS_ITS | CCD ---
Author Organization [facility]ini[facility] Care Team Providers Care Upholsterer Helper Name Role Phone Griselda Hastings Primary Care Provider Griselda Hastings Attending Provider [phone] Griselda Hastings Unavailable Unavailable Unavailable Griselda Hastings Unavailable Sheng Schneider Unavailable Griselda Hastings Primary Care Provider [phone] Griselda Hastings Unavailable DO Griselda Hastings Primary Care Provider MD Oziel Cadena Attending Provider [phone] BAILEY Gaytan Emergency Provider MD Loi Wong Jr Emergency Provider Unavailable Unavailable DO Griselda Hastings Primary Care Provider MD Oziel Cadena Attending Provider BAILEY Gaytan Emergency Provider MD Loi Wong Jr Emergency Provider BAILEY Mota Attending Provider BAILEY Mota Attending Provider DO Griselda Hastings Primary Care Provider MD Oziel Cadena Attending Provider Trish Carney Unavailable Griselda Hastings Primary Care Provider KunGriselda meneses Unavailable Tammi NORRIS, Oziel Ruiz Unavailable FLORES CAT Attending Unavailable FLORES CAT Admitting Unavailable KUNS, GRISELDA WRIGHT Primary Care Unavailable Kuns, DO Griselda Primary Care Provider [phone] Kuns, DO Griselda Attending Provider [phone] MD Lima Joseph Attending Provider Dr. BRET HDEZ Attending Unavailable PCP, OTHER Primary Care Unavailable PCP, Other Primary Care Physician Kuns, DO Griselda Primary Care Provider BAILEY Gaytan Emergency Provider quentin, DO Rohit Mullins Emergency Provider Darling, DO Griselda Attending Provider Lilliam Cason Unavailable Andreas, DO Griselda Primary Care Provider [phone] BAILEY Gaytan Emergency Provider Tuquentin, DO Rohit Mullins Emergency Provider Darling, DO Griselda Attending Provider MD Lilliam Cason Attending Provider [phone] Ruddy Harvey Unavailable BAILEY Mota Attending Provider MD Ruddy Harvey Attending Provider Kuns, DO Griselda Primary Care Provider Kuns DO, Griselda R Primary Care Provider Kuns, DO Griselda Primary Care Provider [phone] JOSE CRUZ KHAN Attending Unavailable JOSE CRUZ KHAN Referring Unavailable KUNS, GRISELDA R Primary Care Unavailable JOSE CRUZ KHAN Attending Unavailable JOSE CRUZ KHAN Referring Unavailable KUNS, GRISELDA R Primary Care Unavailable Kuns, DO Griselda Primary Care Provider MD Ruddy Harvey Attending Provider Kuns DO, Griselda R Primary Care Provider Kuns DO, Griselda R Primary Care Provider Stiven NORRIS, Helder B Unavailable Kuns, DO Burnstt Attending Provider [phone] AndreasGriselda Zackary Primary Care Provider Oziel Cadena MD Unavailable Kuns DO, Griselda R Primary Care Provider Milks PA-C, Solomon A Unavailable Milks PA-C, Solomon A Unavailable Kuns DO, Griselda R Primary Care Provider Andreas DO, Griselda Primary Care Provider Milks PA-C, Solomon A Attending Provider [phone] Andreas DO, Griselda Primary Care Provider [phone] Milks PA-C, Solomon A Attending Provider Wes NORRIS, Ruddy Moraes Attending Provider Daisy Paul MD Emergency Provider Kuns DO, Griselda R Primary Care Provider Andreas DO, Griselda Primary Care Provider [phone] Manisha Negron APRN Emergency Provider Kuns DO, Griselda Other Provider Manisha Negron APRN Attending Provider [phone] Milks PA-C Solomon Nae Attending Provider Andreas DO, Griselda R Primary Care [...] Unavailable KUNS, GRISELDA ZACKARY Primary Care Unavailable Conchita NORRIS, Nathanael Attending Provider Kuns Katy JOSÉtt Attending Provider HARRIS, XIAOFEI Referring Unavailable KUNS, GRISELDA R [...] Care Provider Lilliam Cason MD Attending Provider [phone] Elizabeth Hagan PA-C Attending Provider Nathanael Arango MD Other Provider Solomon Montez APRN Attending Provider Kuns DO Griselda Attending Provider OZIEL CADENA Attending Unavailable OZIEL CADENA Attending Unavailable OZIEL CADENA Attending Unavailable OZIEL CADENA Attending Unavailable DORETHA HARRIS Referring Unavailable ANAHI FRANCO Attending Unavailable OZIEL CADENA Attending Unavailable OZIEL CADENA Attending Unavailable OZIEL CADENA W Attending Unavailable Giedraitis MD, Andrius Vytautas Attending Unavailable Giedraitis MD, Andrius Vytautas Attending Unavailable Giedraitis MD, Andrius Vytautas Attending Unavailable Giedraitis MD, Andrius Vytautas Attending Unavailable Giedraitis MD, Andrius Vytautas Attending Unavailable Giedraitis MD, Andrius Vytautas Attending Unavailable HENRY, DEBRA Referring Unavailable Andreas DO Griselda Primary Care Provider Solomon Montez APRN Attending Provider Roxy NORRIS, Andrius Attending Provider Sofia Arias DO Attending Provider [phone] Griselda Hastings DO Primary Care Provider [phone] Griselda Hastings DO Attending Provider Kuns, Griselda Primary Care Unavailable Daisy Paul Admitting Unavailable Daisy Paul Attending Unavailable Manisha Negron Attending Unavailable Kuns, Griselda Primary Care Unavailable Manisha Negron Admitting Unavailable Kuns, Griselda Primary Care Unavailable Kuns, Griselda Attending Unavailable Kuns, Griselda Admitting Unavailable Kuns, Griselda Primary Care Unavailable Kuns, Griselda Attending Unavailable Kuns, Griselda Admitting Unavailable Milks, Solomon A Admitting Unavailable Milks, Solomon A Attending Unavailable Kuns, Griselda Primary Care Unavailable Kuns, Griselda Primary Care Unavailable Ruddy Harvey Admitting UnavailRuddy Clemens Attending Unavailabl e Manisha Negron Attending Unavailable Kuns, Griselda Primary Care Unavailable Kuns, Griselda Consulting Unavailable Manisha Negron N Admitting Unavailable Kuns, Griselda Primary Care Unavailable MilksSolomon Admitting Unavailable MilksSolomon Attending Unavailable Asaad, Imad Admitting Unavailable Kuns, Griselda Primary Care Unavailable Asaad, Imad Attending Unavailable Unavailable Unavailable Unavailable Allergies Allergy Classification Reported Allergen(s) Allergy Type Date of Onset Reaction(s) Facility Cephalosporins (antibiotic) (1 source) Cephalexin Drug Allergy 8 [facility] (20 sources) Cephalexin; Translations: [CEPHALEXIN] Drug Allergy 8 [facility] (20 sources) Cephalexin; Translations: [Keflex] Drug Allergy rash [facility] Other (1 source) Cephalexin; Translations: [Keflex] Drug Allergy [facility] [place] (17 sources) Keflet; Translations: [KEFLET] Propensity to adverse reactions 4 [facility] (1 source) ALLERGIES NOT ON FILE; Translations: [ALLERGIES NOT ON FILE] Propensity to adverse reactions (disorder) [facility] (3 sources) varenicline; Translations: [varenicline] Drug Allergy 5 [facility] NEGATED: Highlighted row has been ruled out! (1 source) natural latex rubber; Translations: [LATEX, NATURAL RUBBER] Drug allergy (disorder) [facility] [place] NEGATED: Highlighted row has been ruled out! (1 source) No IV Contrast Allergy.; Translations: [IV Dye, Iodine Containing] Drug allergy (disorder) [facility] [place] Medications Current Medications Medication Drug Class(es) Dates [...] mouth twice daily as needed for pain Start: 04-01-2024 End: 04-28-2024 take 1 tablet by mouth twice daily Hydrocodone-Acetaminophen 7.5-300 mg tablet Discontinued 1 TAB PO Twice daily April 01, 2024 12:00am April 28, 2024 10:44am Start: 10-10-2023 HYDROcodone-ac etaminophen ([place]) 5-325 MG tablet 10/10/2023 Active Start: 09-05-2023 End: 04-01-2024 take 1 tablet by mouth every eight hours as needed Hydrocodone-Acetaminophen 5-325 mg table t Discontinued TAB PO Every 8 hours as needed September 05, 2023 12:00am April 01, 2024 11:01am Start: 06-04-2023 take 1 tablet by myles th once daily as needed for pain HYDROcodone-acetaminophen ([place]) 5-325 MG tablet take 1 tablet orally daily NEEDED FOR PAIN MUST LAST 30 DAYS 10/10/2023 Active Start: 12-10-2017 End: 04-29-2018 take 1 tablet by mouth every four hours Hydrocodone-Acetaminophen ([place]) 5-325 mg tablet Discontinued 1 TAB PO Q4H December 10, 2017 April 29, 2018 3:12pm End: 04-10-2024 take 1.5 tablets by mouth twice daily as needed for pain HYDROcodone-acetaminophen ([place]) 5-325 mg tablet Take 1.5 tablets by [...] hours as needed for pain 20 4 April 17, 2022 July 17, 2022 9:01am 1 ml alirocumab 75 mg/ml auto-injector (3 sources) PCSK9 Inhibitor Start: 11-03-2024 inject 75 mg by subcutaneous injection every other week Alirocumab (Praluent Pen) 75 mg/mL pen injector (3 sources) Start: 11-03-2024 inject 75 mg by subcutaneous injection every other week Alirocumab (Praluent Pen) 75 mg/mL pen injector Active 75 MG SUBCUT Q14D 7 90 November 03, 2024 12:00am aspirin 81 mg [...] 1 tablet by mouth once daily Start: 07-17-2022 End: 08-02-2023 take 1 capsule [...] TA BS Quantity: 0 Refills: 0 Ordered: 19-May-2022 DO Active take 1 tablet by myles th once daily Aspirin 81 MG 1 tablet Orally Once a day Active atogepant 60 MG Oral Tablet [Qulipta] (5 sources) take 1 tablet by mouth every twenty-four hours Qulipta 60 MG 1 tablet Orally Once a day Active baclofen 10 mg oral tablet (2 sources) gamma-Aminobutyric Acid-ergic Agonist Start: 3 take 1 tablet by mouth three times daily as needed baclofen (Lioresal) 10 MG tablet Take 1 tablet 3 times a day by oral route as needed for 15 days. 0 03/30/2023 Active bisacodyl 5 mg delayed release oral tablet (1 source) Stimulant Laxative Start: 4 take 1 tablet by mouth every twenty-four hours as needed busPIRone hydrochloride 10 mg oral tablet (20 sources) Start: 4 take 5 mg by mouth twice daily [...] 04/10/2024 Discontinued (Stop Taking at Discharge) citalopram 20 mg oral tablet (20 sources) Serotonin Reuptake Inhibitor Start: 02-19-2025 take 1 tablet by mouth once daily Start: 12-03-2023 End: 02-19-2025 take 1 tablet by mouth once daily [...] tablet (20 sources) P2Y12 Platelet Inhibitor Start: 02-19-2025 take 1 tablet by mouth once daily Start: 04-23-2024 clopidogrel (P lavix) 75 mg [...] once daily Clopidogrel (Plavix) 75 mg tablet Discontinued 75 MG PO Daily August 02, 2023 1:00am January 23, 2024 2:33pm FreeTextSi tablet Orally Once a day; Note: Source Status: Taking; Provider: Darling Camara ( ) cyclobenzaprine hydrochloride 10 mg oral tablet (20 [...] 21, 2023 12:00am May 07, 2023 9:22am 0.4 ml enoxaparin sodium 100 mg/ml prefilled [...] total of 4 mg regardless of dose. iv contrast (will be provide d with radiology test) (20 sources) Start: 11-02-2023 [...] in the MR contrast administration guidelines link Multiple Vitamin (MULTIVITAMIN ADULT PO) (19 sources) take 1 capsule by mouth in [...] 1 tablet by mouth once daily Start: 08-02-2023 take 1 tablet by myles [...] pantoprazole 40 mg delayed release oral tablet (12 sources) Proton Pump Inhibitor Start: 11-17-2024 take 1 tablet by mouth twice daily Start: 11-05-2024 End: 11-17-2024 take 1 tablet by mouth once daily at bedtime Pantoprazole 40 mg tablet,delayed release (DR/EC) Discontinued 40 MG PO Daily at bedtime 56 56 November 05, 2024 12:00am November 17, 2024 2:16pm polyethylene glycol 3350 [id number] mg powder for oral solution (1 source) Osmotic Laxative Start: 04-09-2024 17 g, oral, 2 times daily, First dose on Sun04/09/24 at 2100, Phase II/On Unit, Bowel Regimen - for prevention of constipation. tiZANidine 4 mg oral capsule (20 sources) Central alpha-2 Adrenergic Agonist Start: 02-19-2025 take 1 capsule by mouth twice daily as needed Start: 08-29-2022 End: 11-03-2024 take 1 tablet by mouth once daily at bedtime Tizanidine (Zanaflex) 4 mg tablet Discontinued 4 MG PO Daily at bedtime August 02, 2023 1:00am December 03, 2023 10:58am FreeTextSi tablet as needed Orally at bedtime; Note: Source Status: Taking; Provider: Satish Rogers Start: 04-17-2022 End: 12-29-2024 take 1 capsule by mouth twice daily as needed Tizanidine 4 mg capsule Discontinued 4 MG PO Twice daily as needed for muscle spasticity April 17, 2022 12:00am July 17, 2022 9:02am Start: 04-06-2022 End: 08-02-2023 take 2 tablets [...] 01-Nov-2021 Active take 1 capsule by mo [facility] once daily at bedtime tiZANidine (Zanaflex) 4 [...] AFTERNOON and 2 at bedtime as directed [id number] 200 actuat albuterol 0.09 mg/actuat metered dose [...] mg tablet Discontinued 10 MG PO Daily April 01, 2024 11:02am September 29, 2024 [...] 26, 2023 12:00am May 07, 2023 9:23am [id number] Vzx-Ehnr-Vll-Asb-C (9 sources) Osmotic Laxative, Vitamin C Start: 10-10-2024 End: 10-24-2024 [id number] Azv-Pfcl-Jxd-Asb-C (Plenvu) 140-9-5.2 gram powder in packet, sequential Discontinued 0 PO .COMPLEX 3 October 10, 2024 12:00am October 24, 2024 11:48am PO Start: 10-10-2024 [id number] Cantrell j-Bcpa-Wbz-Asb-C (Plenvu) 140-9-5.2 gram powder in packet, sequential [...] Take 10 mg by mouth once daily. azithromycin 250 mg oral tablet (20 sources) Macrolide Antimicrobial Start: 11-19-2024 End: 02-19-2025 Azithromycin (Zithromax Z-Slim) 250 mg tablet Discontinued 0 PO .COMPLEX 6 November 19, 2024 12:00am February 19, 2025 11:11am For 250 mg dose pack: take 500 mg today (day 1), then 250 mg for 4 days (days 2-5) PO Start: 09-20-2024 End: 10-06-2024 take 2 tablets [...] days Orally Once a day Jun, Active betamethasone 0.5 mg/ml / clotrimazole 10 mg/ml topical cream (20 sources) Azole Antifungal, Corticosteroid Start: 03-08-2023 End: 08-02-2023 Clotrimazole-Betamethasone 1-0.05 % cream Discontinued 1 APPLIC TOPICAL Twice daily August 02, 2023 1:00am August 02, 2023 1:47pm FreeTextSi application Externally Twice a day; Note: Source Status: Not-TakingundefinedPRN; Refills: 1; Qty: 45 grams; Provider: Darling Driver onabotulinumtoxina 200 unt injection (16 sources) Acetylcholine Release Inhibitor Start: 07-20-2023 End: 01-08-2025 Botox 200u vial IJ Soln 200 units injection Indications: Spasmodic Torticollis Inject 400 units into neck muscles every 90 days 2 each 3 07/20/2023 01/08/2025 Discontinued brexpiprazole 1 mg oral tablet (20 sources) Atypical Antipsychotic Start: 08-02-2023 End: 10-18-2023 take 0.5 mg by mouth once daily Brexpiprazole Discontinued 0.5 MG PO Daily August 02, 2023 2:09pm October 18, 2023 8:55am Start: 08-02-2023 End: 10-18-2023 take 1 tablet by mouth once daily Brexpiprazole 1 mg tablet Discontinued 0.5 MG PO Daily August 02, 2023 2:09pm October 18, 2023 8:55am Start: 05-31-2023 take 1 tablet by myles th every twenty-four hours Rexulti 1 MG 1 tablet Orally Once a day samples provided May, Active Start: 05-31-2023 take 1 tablet by myles th every twenty-four hours Rexulti 0.5 MG 1 tablet Orally Once a day for 7 days samples provided May, Active bupivacaine hydrochloride 5 mg/ml injectable solution (14 sources) Amide Local Anesthetic Start: 02-17-2025 End: 02-04-2025 bupivacaine (Marcaine) 0.5 % injection 5 mg Start: 02-17-2025 End: 02-04-2025 5 mg, Injection, Once, On 02/17/25 at 1345, For 1 dose Start: 12-30-2024 End: 12-24-2024 bupivacaine (Marcaine) 0.5 [...] Comment on above: Take 1 tablet by [facility] twice daily. dexamethasone phosphate 4 mg/ml injectable solution (20 sources) Corticosteroid Start: 02-17-2025 End: 02-04-2025 dexAMETHasone sod phos (Decadron) injection 4 mg Start: 02-17-2025 End: 02-04-2025 4 mg (1 mL), Injection, Once , On Sun02/17/25 at 1345, For 1 dose Start: 12-30-2024 End: 12-24-2024 dexAMETHasone sod phos (Deca dron) injection 4 mg Start: 12-30-2024 End: 12-24-2024 [...] End: 04-10-2024 6 mg, intravenous, Once, On 04/09/24 at 2215, For 1 dose Start: 12-03-2023 Dexamethasone Active MG PO December 03, 2023 12:00am Start: 12-03-2023 End: 12-29-2024 Dexamethasone 2 mg tablet Discontinued MG PO December 03, 2023 12:00am April 28, 2024 10:43am Start: 06-14-2023 dexAMETHasone (Decadron) 2 MG tablet Indications: Cervical radiculopathy , Cervical stenosis of spinal canal , Occipital neuralgia of left side 2mg 3 pills po X3 days,2 pills po daily X3 days , then 1 pill po daily X3 days then stop 9 days 18 pills 18 tablet 0 06/14/2023 Active doxycycline hyclate 100 mg oral capsule (13 sources) Tetracycline-class Drug Start: 11-25-2024 End: 02-19-2025 take 1 capsule by mouth twice daily Doxycycline Hyclate 100 mg capsule Discontinued 100 MG PO Twice daily 20 November 25, 2024 12:00am February 19, 2025 11:11am Start: 11-05-2018 End: 10-17-2022 take 1 capsule by mouth every twelve hours doxycycline monohydrate (MONODOX) 100 mg capsule TAKE 1 CAPSULE BY MOUTH EVERY 12 HOURS FOR 10 DAYS 0 11/05/2018 10/17/2022 Discontinued Comment on above: TAKE 1 CAPSULE BY [facility] EVERY 12 HOURS FOR 10 DAYS DULoxetine 20 mg delayed release oral capsule (4 sources) Serotonin and Norepinephrine Reuptake Inhibitor take 1 capsule by mouth every twelve hours Cymbalta 20 MG 1 capsule Orally Twice a day Not-Taking 1 ml evolocumab 140 mg/ml auto-injector (3 sources) PCSK9 Inhibitor Start: 025 End: 025 inject 140 mg by subcutaneous injection every other week Evolocumab (Repatha Sureclick) 140 mg/mL pen injector Discontinued 140 MG SUBCUT EVERY 2 WEEKS October 27, 2024 12:00am November 03, 2024 9:56am Evolocumab (Repatha Sureclick) 140 mg/mL pen injector (3 sources) Start: 025 End: inject 140 mg by subcutaneous injection [...] September 05, 2023 1:34pm Start: 06-08-2023 End: 02-19-2025 take 1 tablet by mouth once daily Ezetimibe (Zetia) 10 mg tablet Discontinued 10 MG PO Daily August 27, 2024 12:00am August 27, 2024 4:02pm Start: 05-15-2023 End: 08-02-2023 take 1 tablet [...] 02/27/2019 10/17/2022 Discontinued take 1 capsule by [facility] every twenty-four hours Gabapentin 100 MG 1 capsule Orally Once a day Not-Taking/PRN Comment on above: Take 1 capsule by [facility] three times daily for 30 days. gadoterate meglumine (Dotarem) 0.5 mmol/mL contrast injection 30 mL (1 source) Start: End: inject 30 mL intravenously once 30 mL, intravenous, Once in imaging, Starting on [facility] 12/13/23 at 0817, For 1 dose, Administer undiluted as rapid I.V. bolus injection hydrOXYzine hydrochloride 25 mg oral tablet (20 sources) Antihistamine Start: End: take 1-2 tablets by mouth at bedtime as needed Hydroxyzine Hcl 25 mg tablet Discontinued MG PO August 02, 2023 1:00am September 05, 2023 1:37pm FreeTextSi-2 tablets Orally HS as needed; Note: Source Status: Taking; Provider: Darling Driver Comment on above: take 1 to 2 [...] 17, 2022 9:01am [facility] daily at mealtime as needed [...] 02, 2023 1:48pm take 1 capsule by [facility] once daily at mealtime indomethacin SR [...] Toradol per 15 mg Jan, 2 mL lisinopril 10 mg oral tablet (20 sources) Angiotensin Converting Enzyme Inhibitor Start: 10-18-2023 End: 09-29-2024 take 1 tablet by mouth once daily Lisinopril 10 mg tablet Discontinued 10 MG PO Daily 90 90 April 01, 2024 11:02am September 29, 2024 3:11pm Start: 09-05-2023 End: 10-18-2023 take 1 tablet by mouth once daily Lisinopril 5 mg tablet Discontinued 5 MG PO Daily September 05, 2023 12:00am October 18, 2023 9:30am take 2 tablets by mo ut once [...] sources) Muscle Relaxant Start: 05-21-2024 End: 01-08-2025 take 1 tablet by mouth once daily at bedtime Methocarbamol 750 mg tablet Discontinued 750 MG PO Daily at bedtime July 03, 2024 1:00am September 20, 2024 11:05am Start: 12-03-2023 End: 01-08-2025 Methocarbamol 500 mg tablet Discontinued 500 MG PO December 03, 2023 10:58am April 28, 2024 10:45am Start: 12-03-2023 End: 12-03-2023 Methocarbamol Discontinued M G PO December 03, 2023 12:00am December 03, 2023 10:59am methylPREDNISolone 4 mg oral tablet (20 sources) Corticosteroid Start: 11-25-2024 End: 02-19-2025 Methylprednisolone 4 mg tablets,dose pack Discontinued 0 PO per package directions November 25, 2024 12:00am February 19, 2025 11:11am PO PER PKG DIR Start: 11-19-2024 End: 02-19-2025 take 1 tablet by mouth once Methylprednisolone (Medrol (Slim)) 4 mg tablets,dose pack Discontinued 0 PO per package directions November 19, 2024 12:00am February 19, 2025 11:11am PO PER PKG DIR for 6 days Start: 08-02-2023 End: 08-02-2023 Methylprednisolone 4 mg [...] directed Jun, Active mirtazapine 15 mg oral tablet (20 sources) Start: 09-01-2022 End: 10-29-2023 take 0.5 tablet by mouth once daily at bedtime as needed Mirtazapine 15 mg tablet Discontinued MG PO Daily at bedtime as needed September 05, 2023 1:35pm October 29, 2023 10:19am FreeTextSi/2 tablet at bedtime Orally Once a day; Note: Source Status: Taking; Provider: Darling Camara ( ) Start: 09-01-2022 End: 10-06-2024 take 1 tablet by mouth once daily at bedtime as needed Mirtazapine 15 mg tablet Discontinued 15 MG PO Daily at bedtime as needed for restless leg(s) October 29, 2023 10:18am October 06, 2024 2:06pm Start: 07-17-2022 End: 08-02-2023 take 1 tablet by mouth at bedtime as needed Mirtazapine 7.5 mg Tablet Discontinued 7.5 MG PO Bedtime as needed for Insomnia July 17, 2022 1:00am August 02, 2023 1:49pm Comment on above: Take by mouth daily at bedtime. montelukast 10 mg oral tablet (20 sources) Leukotriene Receptor Antagonist Start: 07-17-19 End: 08-02-19 take 1 tablet by mouth [...] tablet (20 sources) Nonsteroidal Anti-inflammatory Drug Start: 12-11-19 End: 04-29-20 take 1 tablet by mouth twice daily at mealtime Naproxen 500 mg tablet Discontinued 500 MG PO Twice daily December 10, 2017 12:00am April 29, 2018 3:12pm administer with food or milk 24 hr nicotine 0.875 mg/hr transdermal system (12 sources) Cholinergic Nicotinic Agonist Start: 08-14-19 End: 01-09-20 apply 1 dose transdermal route every twenty-four [...] (20 sources) Angiotensin 2 Receptor Clara Start: 05-07-20 End: 08-02-19 Olmesartan 20 mg tablet Discontinued MG May 07, 2023 1:00am August 02, 2023 1:50pm Start: 05-07-2023 End: 08-02-2023 Olmesartan Discontinued MG T ABLET May 07, 2023 1:00am August 02, 2023 1:50pm ondansetron 4 mg disintegrating oral tablet (12 sources) Serotonin-3 Receptor Antagonist Start: 10-06-2024 End: 10-24-2024 take 1 tablet by mouth every eight hours as needed for nausea and vomiting Ondansetron 4 mg tablet,disintegrating Discontinued 4 MG PO Every 8 hours as needed for nausea and vomiting 9 3 October 06, 2024 12:00am October 24, 2024 11:48am Start: 04-09-2024 take 1 tablet by myles every eight hours as needed ondansetron (Zofran) [...] 40 mg tablet Discontinued 0 .ROUTE .COMPLEX August 27, 2024 4:02pm October 06, 2024 2:06pm take 1 tablet by mouth once daily Start: 07-06-2023 End: 02-19-2025 take 1 tablet by mouth once daily Pravastatin 40 mg tablet Discontinued 40 MG PO Daily October 29, 2023 12:00am November 05, 2023 10:42am Start: 05-15-2023 take 1 tablet by myles every twenty-four hours Pravastatin Sodium 40 MG [...] End: 01-08-2025 take 1 capsule by mouth once daily Pregabalin 50 mg capsule Discontinued 50 MG PO Daily July 03, 2024 1:00am September 20, 2024 11:05am Start: 06-30-2024 End: 07-30-2024 take 1 capsule [...] Status: Not-TakingundefinedPRN; Refills: 1; Provider: Darling Driver SUMAtriptan 100 mg oral tablet (8 sources) [...] Classification Problem Date Documented Da te Episodic/Chronic Allergic reactions (20 sources) Eczema; Translations: [Dermatitis, unspecified] Episodic Anxiety disorders (20 sources) Anxiety; Translations: [Anxiety state, unspecified] Onset: 1 Resolved: 2 Chronic Cancer of head and neck (20 sources) Squamous cell carcinoma of head and neck; 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 of head, face and neck] Onset: 2 Chronic Cancer of head and neck (20 sources) History of malignant neoplasm of head and/or neck; Translations: [Personal history of malignant neoplasm of unspecified site of lip, oral cavity, and pharynx] Onset: 4 08-02-2023 Episodic Cancer; other and unspecified primary (3 sources) History of squamous cell carcinoma; Translations: [Personal history of malignant neoplasm of other sites] Episodic Cardiac dysrhythmias (20 sources) Cardiac arrhythmia; Translations: [Cardiac arrhythmia, unspecified] Onset: 4 Chronic Cataract (20 sources) Age-related nuclear cataract of right eye; Translations: [Age-related nuclear cataract, right eye] Onset: 3 12-10-2022 Chronic Conditions associated with dizziness or vertigo (20 sources) Lightheadedness; Translations: [Dizziness and giddiness] Onset: 3 Episodic Conduction disorders (20 sources) First degree atrioventricular block; Translations: [Atrioventricular block, first degree] Onset: 4 08-02-2023 Chronic Coronary atherosclerosis and other heart disease (20 sources) Coronary arteriosclerosis; Translations: [Atherosclerotic heart disease of [place] coronary artery without angina pectoris] Onset: 4 02-26-2024 Chronic Disorders of lipid metabolism (20 sources) Hyperlipidemia; Translations: [Hyperlipidemia, unspecified] Onset: 2 Resolved: 2 Chronic Esophageal disorders (6 sources) Gastroesophageal reflux disease; Translations: [Gastro-esophageal reflux disease without esophagitis] 01-12-2025 Chronic Essential hypertension (20 sources) Essential hypertension; Translations: [Essential (primary) hypertension] Onset: 3 Chronic Fluid and electrolyte disorders (11 sources) Dehydration; Translations: [Dehydration] 10-06-2024 Episodic Glaucoma (19 sources) Preglaucoma, unspecified, right eye; Translations: [Preglaucoma, [...] [Melanocytic nevi of trunk] 01-08-2025 Episodic Other and unspecified benign neoplasm (6 sources) Polyp of colon; Translations: [Polyp of colon] 01-28-2025 Episodic Other circulatory disease (1 source) Presence [...] source) Tinnitus, bilateral Episodic Other gastrointestinal disorders (7 sources) Altered bowel function; Translations: [Change in bowel habit] 11-04-2024 Episodic Other gastrointestinal disorders (7 sources) Dysphagia; Translations: [Dysphagia, unspecified] 11-04-2024 Episodic Other gastrointestinal disorders (7 sources) Diarrhea; Translations: [Diarrhea, unspecified] 11-04-2024 Episodic Other gastrointestinal disorders (6 sources) Change in bowel habit; Translations: [Other symptoms involving digestive system] 10-10-2024 Episodic Other gastrointestinal disorders (6 sources) Dysphagia, unspecified; Translations: [Dysphagia, unspecified] 10-10-2024 Episodic Other hereditary and degenerative nervous system conditions (19 sources) Isolated cervical dystonia; Translations: [Spasmodic torticollis] Onset: 4 07-03-2023 Chronic Other infections; including parasitic (20 sources) Personal history of other infectious and parasitic diseases; Translations: [History of COVID-19] 01-31-2024 Episodic Other lower respiratory disease (20 sources) Solitary nodule of lung; Translations: [Solitary pulmonary nodule] Episodic Other lower respiratory disease (20 sources) Productive cough ; Translations: [Productive cough] Onset: 4 10-08-2023 Episodic Other nervous system disorders (3 [...] Onset: 3 Chronic Other nervous system disorders (19 sources) Brachial plexus disorder; Translations: [Brachial plexus disorders] Onset: 3 11-23-2022 Chronic Other nervous system disorders (19 sources) Ulnar neuropathy; Translations: [Lesion of ulnar nerve, unspecified upper limb] Onset: 3 12-29-2022 Chronic Other nervous system disorders (1 source) Lesion of brainstem; Translations: [Disorder of brain, unspecified] 10-05-2023 Chronic Other nervous system disorders (4 sources) Other specified disorders of brain; Translations: [Other conditions of brain] 10-29-2023 Chronic Other nervous system disorders (17 sources) Central pontine myelinolysis; 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] joint] 08-02-2023 Episodic Other non-traumatic joint disorders (20 sources) Pain in left shoulder; Translations: [Pain in joint, shoulder region] Onset: 4 Episodic Other non-traumatic joint disorders (1 source) Pain in unspecified joint Episodic Other non-traumatic joint disorders (1 source) Pain in right shoulder; Translations: [Pain in joint, shoulder region] 02-17-2025 Episodic Other nutritional; endocrine; and metabolic disorders (3 sources) Weight loss; Translations: [Loss of weight] Episodic Other nutritional; endocrine; and metabolic disorders (3 sources) H/O: metabolic disorder; Translations: [Personal history of other endocrine, metabolic, and immunity disorders] Episodic Other nutritional; endocrine; and metabolic disorders (6 sources) Unexplained weight loss ; Translations: [Abnormal weight loss] 11-04-2024 Episodic Other nutritional; endocrine; and metabolic disorders (3 sources) Abnormal weight loss; Translations: [Loss of weight] 10-10-2024 Episodic Other skin disorders (20 sources) Mass of neck; Translations: [Localized swelling, mass and lump, neck] Episodic Other skin disorders (20 sources) Vesicular eczema; 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]] Onset: 4 08-02-2023 Episodic Other skin disorders (1 source) [...] sinusitis, unspecified] Onset: 2 Resolved: 2 Chronic Other upper respiratory infections (20 sources) Acute pharyngitis, unspecified; Translations: [Acute sinusitis] Onset: 4 Episodic Otitis media and related conditions (20 sources) Acute transudative otitis media; Translations: [Other acute nonsuppurative otitis media, left ear] Onset: 4 02-26-2023 Episodic Peripheral and visceral atherosclerosis (20 sources) Intermittent claudication; Translations: [Peripheral vascular disease, unspecified] Onset: 4 Chronic Pneumonia (except that caused by tuberculosis or sexually transmitted disease) (12 sources) Pneumonia; Translations: [Pneumonia, unspecified organism] 09-20-2024 Episodic Residual codes; unclassified (3 sources) Postprocedural state finding; Translations: [Presence of other specified functional implants] 01-12-2025 Chronic Residual codes; unclassified (20 sources) Insomnia; Translations: [Insomnia, unspecified] Onset: 3 12-10-2022 Episodic Residual codes; unclassified (2 sources) Insomnia, unspecified Episodic Residual codes; unclassified (16 sources) History of cervical discectomy; Translations: [Other specified postprocedural states] 07-03-2024 Episodic Residual codes; unclassified (4 sources) Other specified postprocedural states; Translations: [Other postprocedural status] 07-03-2024 Episodic Residual codes; unclassified (6 sources) Early satiety; Translations: [Early satiety] 11-04-2024 [...] without specification of site] Chronic Secondary malignancies (19 sources) Secondary malignant neoplasm of lymph node; [...] Spine Surgery; Translations: [Post-op Spine Surgery] Onset: 5 Past or Other Problems Problem Classification Problem Date Documented Da te Episodic/Chronic Abdominal pain (20 sources) Abdominal pain; Translations: [Unspecified abdominal pain] Onset: 10-06-2024 10-06-2024 Episodic Blindness and vision defects (20 sources) Unspecified visual disturbance; Translations: [Visual disturbance] Onset: 01-30-2022 Resolved: 01-30-2022 Episodic Cancer of brain and nervous system (20 sources) Glial tumor of brain; 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, unspecified] Onset: 10-13-2021 Resolved: 07-19-2023 Chronic Encephalitis (except that caused by tuberculosis or sexually transmitted disease) (17 sources) Myelitis; Translations: [Myelitis, unspecified] Onset: 08-29-2023 08-29-2023 Episodic Headache; including migraine (3 sources) Headache; including migraine Onset: 11-01-2021 Resolved: 01-30-2022 Malaise and fatigue (19 sources) Asthenia; Translations: [Weakness] Onset: 12-29-2022 12-29-2022 Episodic Other and unspecified benign neoplasm (19 sources) Schwannoma; Translations: [Benign neoplasm of peripheral nerves and autonomic nervous system, unspecified] Onset: 12-10-2022 12-10-2022 Episodic Other connective tissue disease (19 sources) Muscle pain; Translations: [Myalgia, unspecified site] Onset: 12-10-2022 12-10-2022 Episodic Other connective tissue disease (19 sources) Pain in left arm; Translations: [Pain in left arm] Onset: 12-29-2022 12-29-2022 Episodic Other connective tissue disease (20 sources) Spasm of cervical paraspinous muscle; Translations: [Other muscle spasm] Onset: 12-29-2022 12-29-2022 Episodic Other connective tissue disease (19 sources) Radicular pain; Translations: [Neuralgia and neuritis, unspecified] Onset: 04-04-2023 04-04-2023 Episodic Other connective tissue disease (2 sources) Arthrodesis status; Translations: [Arthrodesis status] Onset: 04-30-2024 Episodic Other connective tissue disease (2 sources) Other muscle spasm; Translations: [Other muscle spasm] Onset: 04-30-2024 Episodic Other gastrointestinal disorders (7 sources) Diarrhea, unspecified; Translations: [Diarrhea] Onset: 11-05-2024 10-10-2024 Episodic Other lower respiratory disease (20 sources) Multiple nodules of lung; Translations: [Other nonspecific abnormal finding of lung field] Onset: 10-13-2021 Episodic Other lower respiratory disease (1 source) Shortness of breath; Translations: [Shortness of breath] Onset: 09-20-2024 Episodic Other nervous system disorders (20 sources) Skin sensation disturbance; Translations: [Anesthesia of skin] Onset: 12-29-2022 12-29-2022 Episodic Other nervous system disorders (2 sources) Other acute postprocedural pain; Translations: [Other acute postprocedural pain] Onset: 04-30-2024 Episodic Other screening for suspected conditions (not mental disorders or infectious disease) (20 sources) Encounter for screening for malignant neoplasm of prostate; Translations: [Magnetic resonance imaging of brain abnormal] Onset: 09-19-2021 Resolved: 09-19-2021 Episodic Other upper respiratory disease (1 source) [...] (14 sources) Onset: 10-05-2023 Resolved: 10-13-2024 10-05-2023 Viral infection (14 sources) Respiratory syncytial virus infection; Translations: [Other specified viral diseases] Onset: 2024 Episodic Results Test Name Value Interpretation Reference Range Facility US ankle/arm indiceson 02-27 US ankle/arm indices [place] [address] Ultrasound Report Signed Patient: Shantel Melendez MR#: [id number] : 1960 Acct:[id number] Age/Sex: 64 / M ADM Date: 02/26/25 Loc: Room: Type: [facility] Attending Dr: Griselda Hastings DO Ordering Provider: Griselda Hastings DO Date of Service: 02/26/25 US/US ankle/arm indices: I73.9 - Peripheral vascular disease, unspecified Copies to: Griselda Hastings DO LOWER EXTREMITY SEGMENTAL ARTERIAL DOPSCAN (PVR) INDICATION: Right leg numbness. PROCEDURE: Right arm blood pressure is 88 , left is 111 . Pressures at the right ankle are 120 using the posterior tibial artery, and 118 using the dorsalis pedis artery with ankle-brachial index of 1.08 1.06 . Pressures at the left ankle are 131 using the posterior tibial artery, and 123 with ankle- brachial index of 1.18 1.11 . Wave forms by plethysmography are normal. US/US ankle/arm indices IMPRESSION: NO HEMODYNAMICALLY SIGNIFICANT PERIPHERAL VASCULAR OCCLUSIVE DISEASE AT REST IN EITHER LOWER EXTREMITY. Impression dictated by: Ruddy Harvey MD,FACS,FSVS 02/27/2025 7:42 AM Dictation Location: [place] [address] Tech: Agueda Helm Transcribed By: PWS 02/27/25741 Dictated By: Ruddy Harvey MD 02/27/25740 Signed By: 02/27/25741 Normal [facility] Basophils Auto (Bld) [#/Vol] Ordered By: Sofia Marker on 02-18-2025 Basophils (Bld) [#/Vol] 0.1 10 3/uL 0.0-0.1 [facility] Basophils/100 WBC Auto (Bld) Ordered By: Sofia Marker on 02-18-2025 Basophils/100 WBC (Bld) 0.7 % 0.2-2.0 [facility] Eosinophils/100 WBC Auto (Bl d)Ordered By: Sofia Marker on 02-18-2025 Eosinophils/100 WBC (Bld) 1.1 % 0.9-7.0 [facility] Erythrocyte distribution wid th Auto (RBC) [Ratio]Ordered By: Sofia Marker on 02-18-2025 Erythrocyte distribution width (RBC) [Ratio] 13.4 % 11.0-15.0 [facility] Fibrin D-dimer [Presence] in Platelet poor plasma by Latex agglutinationOrdered By: Sofia Marker on 02-18-2025 Fibrin D-dimer LA Ql (PPP) 0.56 mg/L FEU <=0.59 [facility] Comment on above: Increases in D-Dimer concentration observed withthromboembolic events can be variable due to localization,size, and age of the thrombus. Therefore, a thromboembolicevent cannot be diagnosed with certainty on the basis of thereference range. D-Dimers may also be elevated for a varietyof disorders including advanced age, , coronarydisease, cancer, liver disease, infection, inflammation,hematoma, DIC, trauma, post-surgery, diabetes, thrombolyticor anticoagulant therapy, stress, and generalizedhospitalization. Globulin Calc (S) [Mass/Vol] Ordered By: Sofia Marker on 02-18-2025 Globulin (S) [Mass/Vol] 2.5 g/dL [facility] Glomerular filtration rate ( GFR) estimation in non- AmericanOrdered By: Sofia Marker on 02-18-2025 GFR/1.73 sq M.predicted among non-blacks MDRD (S/P/Bld) [Vol rate/Area] mL/min/{1.73_m2} >=60 mL/min/1.7 3m 2 [facility] Hematocrit Auto (Bld) [Volum e fraction]Ordered By: Sofia Marker on 02-18-2025 Hematocrit (Bld) [Volume fraction] 39.7 % Low 42.0-54.0 [facility] Hemoglobin [Mass/volume] in BloodOrdered By: Sofia Marker on 02-18-2025 Hemoglobin (Bld) [Mass/Vol] 13.8 g/dL Low 14.0-18.0 [facility] Laboratory - Chemistry and C hemistry - challengeOrdered By: Sofia Marker on 02-18-2025 Albumin [Mass/Vol] 3.0 g/dL Low 3.4-5.0 [facility] ALP [Catalytic activity/Vol] 68 U/L 46-116 [facility] ALT [Catalytic activity/Vol] 18 U/L 16-63 [facility] AST [Catalytic activity/Vol] 11 U/L Low 15-37 [facility] Bilirubin [Mass/Vol] 0.8 mg/dL 0.2-1.0 [facility] Calcium [Mass/Vol] 9.5 mg/dL 8.5-10.1 [facility] Chloride [Moles/Vol] 108 mmol/L High 98-107 [facility] CO2 [Moles/Vol] 27.5 mmol/L 21.0-32.0 [facility] Creatinine [Mass/Vol] 0.87 mg/dL 0.70-1.30 [facility] GFR/1.73 sq M.predicted MDRD (S/P/Bld) [Vol rate/Area] mL/min/{1.73_m2} >=60 mL/min/1.7 3m 2 [facility] Glucose [Mass/Vol] 78 mg/dL 74-106 [facility] Potassium [Moles/Vol] 4.1 mmol/L 3.5-5.1 [facility] Protein [Mass/Vol] 5.5 g/dL Low 6.4-8.2 [facility] Sodium [Moles/Vol] 144 mmol/L 136-145 [facility] Urea nitrogen [Mass/Vol] 11.0 mg/dL 7.0-18.0 [facility] Urea nitrogen/Creatinine [Mass ratio] 12.6 mg/mg [facility] - Hematology and Cell countsOrdered By: Sofia Marker on 02-18-2025 Immature granulocytes/100 WBC (Bld) 0.3 % 0.0-0.5 [facility] Leukocytes [#/volume] correc mone for nucleated erythrocytes in Blood by Automated counOrdered By: Sofia Marker on 02-18-2025 WBC corrected for nucl RBC Auto (Bld) [#/Vol] 7.4 10 3/uL 4.0-11.0 [facility] Lymphocytes Auto (Bld) [#/Vo l]Ordered By: Sofia Marker on 02-18-2025 Lymphocytes (Bld) [#/Vol] 2.1 10 3/uL 1.2-3.8 [facility] Lymphocytes/100 WBC Auto (Bl d)Ordered By: Sofia Marker on 02-18-2025 Lymphocytes/100 WBC (Bld) 28.8 % 20.5-60.0 [facility] MCH Auto (RBC) [Entitic mass ]Ordered By: Sofia Marker on 02-18-2025 MCH (RBC) [Entitic mass] 32.5 pg 25.9-34.0 [facility] MCHC Auto (RBC) [Mass/Vol]Or dered By: Sofia Marker on 02-18-2025 MCHC (RBC) [Mass/Vol] 34.8 g/dL 29.9-35.2 [facility] MCV Auto (RBC) [Entitic vol] Ordered By: Sofia Marker on 02-18-2025 MCV (RBC) [Entitic vol] 93.4 fL 80.0-94.0 [facility] Monocytes Auto (Bld) [#/Vol] Ordered By: Sofia Marker on 02-18-2025 Monocytes (Bld) [#/Vol] 0.4 10 3/uL 0.3-0.8 [facility] Monocytes/100 WBC Auto (Bld) Ordered By: Sofia Marker on 02-18-2025 Monocytes/100 WBC (Bld) 5.6 % 1.7-12.0 [facility] Neutrophils Auto (Bld) [#/Vo l]Ordered By: Sofia Marker on 02-18-2025 Neutrophils (Bld) [#/Vol] 4.7 10 3/uL 1.4-6.5 [facility] Neutrophils/100 WBC Auto (Bl d)Ordered By: Sofia Marker on 02-18-2025 Neutrophils/100 WBC (Bld) 63.5 % 43.0-75.0 [facility] No Panel InformationOrdered By: Sofia Marker on 02-18-2025 Eosinophils # (Auto) 0.1 10 3/uL 0.0-0.7 [facility] Immature Granulocyte # (Auto) 0.02 10 3/uL 0.00-0.03 [facility] Troponin I High Sensitivity 11.3 pg/mL 4.0-76.1 [facility] Comment on above: CUT-OFF POINTS HAVE BEEN ESTABLISHED BASED ON THE FOURTHUNIVERSAL DEFINITION OF MYOCARDIAL INFARCTION. THE UPPERREFERENCE LIMIT (URL) OF TROPONIN, DEFINED THE 99THPERCENTILE OF cTnI DISTRIBUTION IN A REFERENCE POPULATION,HAS BEEN CONFIRMED THE DECISION THRESHOLD FOR MIDIAGNOSIS.99TH PERCENTILE = 76.2 PG/MLNOTE: HIGH-SENSITIVITY TROPONIN ASSAY IS NOT INTENDED TO BEUSED IN ISOLATION BUT SHOULD BE INTERPRETED IN CONJUNCTIONWITH OTHER DIAGNOSTIC AND CLINICAL INFORMATION. Platelet mean volume Auto (B ld) [Entitic vol]Ordered By: Sofia Marker on 02-18-2025 Platelet mean volume (Bld) [Entitic vol] 11.4 fL 9.5-13.5 [facility] Platelets Auto (Bld) [#/Vol] Ordered By: Sofia Marker on 02-18-2025 Platelets (Bld) [#/Vol] 246 10 3/uL 150-450 [facility] RBC Auto (Bld) [#/Vol]Ordere d By: Sofia Marker on 02-18-2025 RBC (Bld) [#/Vol] 4.25 10 6/uL Low 4.70-6.10 [facility] Serum or plasma albumin/glob ulin mass ratioOrdered By: Sofia Marker on 02-18-2025 Albumin/Globulin [Mass ratio] 1.2 {ratio} [facility] Serum or plasma anion gap de terminationOrdered By: Sofia Marker on 02-18-2025 Anion gap [Moles/Vol] 12.6 mmol/L [facility] 36on 02-13-2025 36 Patient scheduled fo r 03/24/25 @ 10:30am [facility] 36 LVM for pt to call fatimah ferrer to schedule consult with Dr. Ramirez to discuss SCS placement. Imaging requested. Please transfer pt to pre reg after call. Please inform technical document writer when scheduled. [employer] reps will need notified. Normal [facility] Telephoneon 02-13-2025 Telephone [phone] Shantel Melendez 1960 M Date Provider Department Center 02/13/2025 [facility] Second Fl No family history on file Normal [facility] Activated partial thrombopla stin time (aPTT) in platelet poor plasma by coagulation aOrdered By: Andrius Giedraitis on 01-27-2025 aPTT Coag (PPP) [Time] 24.2 s 22.3-36.2 [facility] Basophils Auto (Bld) [#/Vol] Ordered By: Andrius Giedraitis on 01-27-2025 Basophils (Bld) [#/Vol] 0.0 10 3/uL 0.0-0.1 [facility] Basophils/100 WBC Auto (Bld) Ordered By: Andrius Giedraitis on 01-27-2025 Basophils/100 WBC (Bld) 0.2 % 0.2-2.0 [facility] Eosinophils/100 WBC Auto (Bl d)Ordered By: Andrius Giedraitis on 01-27-2025 Eosinophils/100 WBC (Bld) 0.1 % Low 0.9-7.0 [facility] Erythrocyte distribution wid th Auto (RBC) [Ratio]Ordered By: Sarina Ramsey on 01-27-2025 Erythrocyte distribution width (RBC) [Ratio] 14.1 % 11.0-15.0 [facility] Glomerular filtration rate ( GFR) estimation in non- AmericanOrdered By: Sarina Ramsey on 01-27-2025 GFR/1.73 sq M.predicted among non-blacks MDRD (S/P/Bld) [Vol rate/Area] mL/min/{1.73_m2} >=60 mL/min/1.7 3m 2 [facility] Hematocrit Auto (Bld) [Volum e fraction]Ordered By: Sarina Ramsey on 01-27-2025 Hematocrit (Bld) [Volume fraction] 38.0 % Low 42.0-54.0 [facility] Hemoglobin [Mass/volume] in BloodOrdered By: Sarina Ramsey on 01-27-2025 Hemoglobin (Bld) [Mass/Vol] 13.0 g/dL Low 14.0-18.0 [facility] INR in Platelet poor plasma by Coagulation assayOrdered By: Sarina Ramsey on 01-27-2025 INR Coag (PPP) [Relative time] 1.09 {INR} [facility] Comment on above: DESIRED INR:2.0-3.0 CONDITIONS NOT LISTED BELOW2.5-3.5 FOR PROSTHETIC HEART VALVE REPLACEMENT2.5-3.5 RECURRENT THROMBOSIS Laboratory - Chemistry and C hemistry - challengeOrdered By: Sarina Ramsey on 01-27-2025 Calcium [Mass/Vol] 9.2 mg/dL 8.5-10.1 [facility] Chloride [Moles/Vol] 106 mmol/L 98-107 [facility] CO2 [Moles/Vol] 28.7 mmol/L 21.0-32.0 [facility] Creatinine [Mass/Vol] 0.81 mg/dL 0.70-1.30 [facility] GFR/1.73 sq M.predicted MDRD (S/P/Bld) [Vol rate/Area] mL/min/{1.73_m2} >=60 mL/min/1.7 3m 2 [facility] Glucose [Mass/Vol] 89 mg/dL 74-106 [facility] Potassium [Moles/Vol] 3.7 mmol/L 3.5-5.1 [facility] Sodium [Moles/Vol] 138 mmol/L 136-145 [facility] Urea nitrogen [Mass/Vol] 17.0 mg/dL 7.0-18.0 [facility] Urea nitrogen/Creatinine [Mass ratio] 21.0 mg/mg [facility] Laboratory - Hematology and Cell countsOrdered By: Sarina Ramsey on 01-27-2025 Immature granulocytes/100 WBC (Bld) 0.2 % 0.0-0.5 [facility] Leukocytes [#/volume] correc mone for nucleated erythrocytes in Blood by Automated counOrdered By: Andrius Giedraitis on 01-27-2025 WBC corrected for nucl RBC Auto (Bld) [#/Vol] 8.2 10 3/uL 4.0-11.0 [facility] Lymphocytes Auto (Bld) [#/Vo l]Ordered By: Andrius Giedraitis on 01-27-2025 Lymphocytes (Bld) [#/Vol] 2.4 10 3/uL 1.2-3.8 [facility] Lymphocytes/100 WBC Auto (Bl d)Ordered By: Andrius Giedraitis on 01-27-2025 Lymphocytes/100 WBC (Bld) 29.3 % 20.5-60.0 [facility] MCH Auto (RBC) [Entitic mass ]Ordered By: Andrius Giedraitis on 01-27-2025 MCH (RBC) [Entitic mass] 32.1 pg 25.9-34.0 [facility] MCHC Auto (RBC) [Mass/Vol]Or dered By: Andrius Giedraitis on 01-27-2025 MCHC (RBC) [Mass/Vol] 34.2 g/dL 29.9-35.2 [facility] MCV Auto (RBC) [Entitic vol] Ordered By: Andrius Giedraitis on 01-27-2025 MCV (RBC) [Entitic vol] 93.8 fL 80.0-94.0 [facility] Monocytes Auto (Bld) [#/Vol] Ordered By: Andrius Giedraitis on 01-27-2025 Monocytes (Bld) [#/Vol] 0.4 10 3/uL 0.3-0.8 [facility] Monocytes/100 WBC Auto (Bld) Ordered By: Andrius Giedraitis on 01-27-2025 Monocytes/100 WBC (Bld) 5.0 % 1.7-12.0 [facility] Neutrophils Auto (Bld) [#/Vo l]Ordered By: Andrius Giedraitis on 01-27-2025 Neutrophils (Bld) [#/Vol] 5.4 10 3/uL 1.4-6.5 [facility] Neutrophils/100 WBC Auto (Bl d)Ordered By: Andrius Giedraitis on 01-27-2025 Neutrophils/100 WBC (Bld) 65.2 % 43.0-75.0 [facility] No Panel InformationOrdered By: Andrius Giedraitis on 01-27-2025 Eosinophils # (Auto) 0.0 10 3/uL 0.0-0.7 [facility] Immature Granulocyte # (Auto) 0.02 10 3/uL 0.00-0.03 [facility] Platelet mean volume Auto (B ld) [Entitic vol]Ordered By: Andrius Giedraitis on 01-27-2025 Platelet mean volume (Bld) [Entitic vol] 11.4 fL 9.5-13.5 [facility] Platelets Auto (Bld) [#/Vol] Ordered By: Andrius Giedraitis on 01-27-2025 Platelets (Bld) [#/Vol] 214 10 3/uL 150-450 [facility] Prothrombin time (PT)Ordered By: Andrius Giedraitis on 01-27-2025 PT Coag (PPP) [Time] 11.5 s 9.0-11.6 [facility] RBC Auto (Bld) [#/Vol]Ordere d By: Sarina Flowersfrances on 01-27-2025 RBC (Bld) [#/Vol] 4.05 10 6/uL Low 4.70-6.10 [facility] Serum or plasma anion gap de terminationOrdered By: Boubacarguillaume Ramsey on 01-27-2025 Anion gap [Moles/Vol] 7.0 mmol/L [facility] No Panel Informationon 01-08 [facility] X[facility] CERVICAL SPINE 2-3 VIEWSo n 12-29-2024 [...] By: Yehuda Pozo on 2024 Study report [facility] [place] [address] [place] [address] XRay Report Signed Patient: Shantel Melendez MR#: [id number] : 1960 Acct:[id number] Age/Sex: 64 / M ADM Date: 5 Loc: XDS Room: Type: [facility] Attending Dr: Griselda Hastings DO Copies to: [...] NO ACUTE CARDIOPULMONARY ABNORMALITY. Impression dictated by: Yina Solorzano Jr..OMaria R 2024 4:30 PM Dictation Location: [facility]IO-PC-19 Transcribed By: MARISA 11/24/24 1630 Dictated By: Yung Pozo Jr, DO 11/24/24 1630 Signed By: 11/24/24 1630 [facility] XR chest 2V*on 2024 XR chest 2V* [place] [address] XRay Report Signed Patient: Shantel Melendez MR#: [id number] : 1960 Acct:[id number] Age/Sex: 64 / M ADM Date: 11/24/24 [facility] Attending Dr: Griselda Hastings DO Copies to: Grsielda Hastings DO Ordering Provider: Griselda Hastings DO Date of Service: 11/24/24 XR/XR chest 2V*: B33.8 - Other specified viral diseases Chest 2 views CLINICAL HISTORY: Productive cough sinus drainage COMPARISON: Chest 09/20/2024 FINDINGS: Heart is normal in size. No consolidation pneumothorax pleural effusion or free air. Lingular scarring. XR/XR chest 2V* IMPRESSION: NO ACUTE CARDIOPULMONARY ABNORMALITY. Impression dictated by: Yina Solorzano Jr..OMaria R 2024 4:30 PM Dictation Location: RADIO-PC-19 Transcribed By: MARISA 11/24/24 1630 Dictated By: Yung Pozo Jr, DO 11/24/24 1630 Signed By: 11/24/24 1630 Normal [facility] Influenza virus B Ag [Presen ce] in Upper respiratory specimen by Rapid immunoassayon 11-19-2024 FLUBV Ag IA.rapid Ql (Nph) Influenza virus B Ag [Presence] in Upper respiratory specimen by Rapid immunoassay [facility] FLUBV Ag IA.rapid Ql (Nph) Negative [facility] No Panel Informationon 11-19 Influenza Type A (Rapid) Negative [facility] POC SARS CoV-2 Antigen Negative [facility] No Panel InformationOrdered By: Griselda Hastings on 11-19-2024 Quick Strep (POC) [facility] RSV (POC) [facility] CNOVSPon 11-07-2024 CNOVSP Visit (SP) Office ([place]) ----- SHANTEL MELENDEZ ([id number]) 1960 M Date Time Provider Department 11/07/24 9:20 AM RACQUEL COLE During your visit today, we recorded the following information about you: Temperature Pulse Respiration Blood pressure 97.5 degrees 72/minute 16/minute 115/89 Weight Height 79.3 kg 1.706 m Racquel Cole MD 11/07/2024 11:09 AM Signed NAME: Shantel Melendez CLINIC NO.: [id number] DATE OF SERVICE: November 07, 2024 (Curtis) Some elements in this clinic note that are critical to medical decision making have been carefully reviewed and included from a prior clinic note dated: November 02, 2023 (Curtis) Referring Provider: Griselda Hastings, DO Additional Clinicians involved in Shantel Melendez's care: Dr Kimberly Nichole ENT, Dr. 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 10/05/2021 - MRI Brain: [facility] There is T2 and T2 flair hyperintense [...] may represent (more content not included)... Normal [facility] No Panel InformationOrdered By: Nathanael Arango on 11-05-2024 Miscellaneous Pathology Test See comment [facility] Comment on above: See report. Scanned copy available in EMR. Pathology Request for Lab Co rpon 11-05-2024 Pathology Request for Lab Nancy Normal [facility] Comment on above: Order Comment: GI SP ECIMEN Result Comment: See report. Scanned copy available in EMR. PERFORMED BY: [place] [address] PATHOLOGIST [employer] EDUARDO HOLLINGSWORTH M.D. Performed By: #### P ATH TO [facility] #### [address] Basophils Auto (Bld) [#/Vol] on 11-03-2024 Basophils (Bld) [#/Vol] Automated basophil count <0.11 [facility] Basophils (Bld) [#/Vol] 0.06 10*3/uL <0.11 [facility] Basophils/100 WBC Auto (Bld) on 11-03-2024 Basophils/100 WBC (Bld) Automated basophil % [facility] Basophils/100 WBC (Bld) 1.0 % [facility] Blood manual differential co mment interpretation narrativeon 11-03-2024 Manual differential comment Curtis (Bld) [Interp] Blood manual differential comment interpretation narrative [facility] Manual differential comment Curtis (Bld) [Interp] Auto [facility] CBC W Auto Differential pane l (Bld)on 11-03-2024 Basophils (Bld) [#/Vol] 0.06 10*3/uL [facility] Basophils/100 WBC (Bld) 1 % [facility] Differential cell count method Nom (Bld) Auto [facility] Eosinophils (Bld) [#/Vol] 0.16 10*3/uL [facility] Eosinophils/100 WBC (Bld) 2.7 % [facility] Erythrocyte distribution width (RBC) [Ratio] 14.6 % 11.5 - 15.0 % [facility] Hematocrit (Bld) [Volume fraction] 40 % 39.0 - 51.0 % [facility] Hemoglobin (Bld) [Mass/Vol] 13.6 g/dL 13.0 - 17.0 g/dL [facility] Immature granulocytes (Bld) [#/Vol] [facility] Immature granulocytes/100 WBC (Bld) 0.2 % [facility] Lymphocytes (Bld) [#/Vol] 2.73 10*3/uL [facility] Lymphocytes/100 WBC (Bld) 45.3 % [facility] MCH (RBC) [Entitic mass] 31.9 pg 26.0 - 34.0 pg [facility] MCHC (RBC) [Mass/Vol] 34 g/dL 30.5 - 36.0 g/dL [facility] MCV (RBC) [Entitic vol] 93.9 fL 80.0 - 100.0 fL [facility] Monocytes (Bld) [#/Vol] 0.4 10*3/uL [facility] Monocytes/100 WBC (Bld) 6.6 % [facility] Neutrophils (Bld) [#/Vol] 2.67 10*3/uL [facility] Neutrophils/100 WBC (Bld) 44.2 % [facility] Nucleated RBC (Bld) [#/Vol] [facility] Nucleated RBC/100 WBC (Bld) [Ratio] 0 % /100 WBC [facility] Platelet mean volume (Bld) [Entitic vol] 11 fL 9.0 - 12.7 fL [facility] Platelets (Bld) [#/Vol] 281 10*3/uL [facility] RBC (Bld) [#/Vol] 4.26 10*6/uL 4.20 - 6.00 m/uL [facility] WBC (Bld) [#/Vol] 6.03 10*3/uL [facility] Basophils (Bld) [#/Vol] 0.06 10*3/uL Normal <0.11 [facility] Comment on above: Order Comment: Speci men Type: BLOOD SPECIMEN Ordering Facility: [facility] Address: [address] [place] [address] Performed By: #### 5 7021-8 #### [facility] CLIA [id number] [address] [place] [address] Basophils/100 WBC (Bld) 1.0 % Normal [facility] Comment on above: Order Comment: Speci men Type: BLOOD SPECIMEN Ordering Facility: [facility] Address: [address] [place] [address] Performed By: #### 5 7021-8 #### [facility] CLIA [id number] [address] [place] [address] Differential cell count method Nom (Bld) Auto Normal [facility] Comment on above: Order Comment: Speci men Type: BLOOD SPECIMEN Ordering Facility: [facility] Address: [address] [place] [address] Performed By: #### 5 7021-8 #### [facility] CLIA [id number] [address] [place] [address] Eosinophils (Bld) [#/Vol] 0.16 10*3/uL Normal <0.46 [facility] Comment on above: Order Comment: Speci men Type: BLOOD SPECIMEN Ordering Facility: [facility] Address: [facility] [place] [address] Performed By: #### 5 7021-8 #### [facility] CLIA [id number] [address] [place] [address] Eosinophils/100 WBC (Bld) 2.7 % Normal [facility] Comment on above: Order Comment: Speci men Type: BLOOD SPECIMEN Ordering Facility: [facility] Address: [address] [place] [address] Performed By: #### 5 7021-8 #### [facility] CLIA [id number] [address] [place] [address] Erythrocyte distribution width (RBC) [Ratio] 14.6 % Normal 11.5-15.0 [facility] Comment on above: Order Comment: Speci men Type: BLOOD SPECIMEN Ordering Facility: [facility] Address: [address] [place] [address] Performed By: #### 5 7021-8 #### [facility] CLIA [id number] [address] [place] [address] Hematocrit (Bld) [Volume fraction] 40.0 % Normal 39.0-51.0 [facility] Comment on above: Order Comment: Speci men Type: BLOOD SPECIMEN Ordering Facility: [facility] Address: [address] [place] [address] Performed By: #### 5 7021-8 #### [facility] CLIA [id number] [address] [place] [address] Hemoglobin (Bld) [Mass/Vol] 13.6 g/dL Normal 13.0-17.0 [facility] Comment on above: Order Comment: Speci men Type: BLOOD SPECIMEN Ordering Facility: [facility] Address: [address] [place] [address] Performed By: #### 5 7021-8 #### [facility] CLIA [id number] [address] [place] [address] Immature granulocytes (Bld) [#/Vol] 10*3/uL Normal <0.10 [facility] Comment on above: Order Comment: Speci men Type: BLOOD SPECIMEN Ordering Facility: [facility] Address: [address] [place] [address] Performed By: #### 5 7021-8 #### [facility] CLIA [id number] [address] [place] [address] Immature granulocytes/100 WBC (Bld) 0.2 % Normal [facility] Comment on above: Order Comment: Speci men Type: BLOOD SPECIMEN Ordering Facility: [facility] Address: [address] [place] [address] Performed By: #### 5 7021-8 #### [facility] CLIA [id number] [address] [place] [address]65 Lymphocytes (Bld) [#/Vol] 2.73 10*3/uL Normal 1.00-4.00 [facility] Comment on above: Order Comment: Speci men Type: BLOOD SPECIMEN Ordering Facility: [facility] Address: [address] [place] [address] Performed By: #### 5 7021-8 #### [facility] CLIA [id number] [address] [place] [address]69 Lymphocytes/100 WBC (Bld) 45.3 % Normal [facility] Comment on above: Order Comment: Speci men Type: BLOOD SPECIMEN Ordering Facility: [facility] Address: [address] [place] [address] Performed By: #### 5 7021-8 #### [facility] CLIA [id number] [address] [place] [address]195 MCH (RBC) [Entitic mass] 31.9 pg Normal 26.0-34.0 [facility] Comment on above: Order Comment: Speci men Type: BLOOD SPECIMEN Ordering Facility: [facility] Address: [address] [place] [address] Performed By: #### 5 7021-8 #### [facility] CLIA [id number] [address] [place] [address] MCHC (RBC) [Mass/Vol] 34.0 g/dL Normal 30.5-36.0 [facility] Comment on above: Order Comment: Speci men Type: BLOOD SPECIMEN Ordering Facility: [facility] Address: [address] [place] [address] Performed By: #### 5 7021-8 #### [facility] CLIA [id number] [address] [place] [address] 77550 MCV (RBC) [Entitic vol] 93.9 fL Normal 80.0-100.0 [facility] Comment on above: Order Comment: Speci men Type: BLOOD SPECIMEN Ordering Facility: [facility] Address: [address] [place] [address] Performed By: #### 5 7021-8 #### [facility] CLIA [id number] [address] [place] [address]15 Monocytes (Bld) [#/Vol] 0.40 10*3/uL Normal <0.87 [facility] Comment on above: Order Comment: Speci men Type: BLOOD SPECIMEN Ordering Facility: [facility] Address: [address] [place] [address] Performed By: #### 5 7021-8 #### [facility] CLIA [id number] [address] [place] [address] 45457 Monocytes/100 WBC (Bld) 6.6 % Normal [facility] Comment on above: Order Comment: Speci men Type: BLOOD SPECIMEN Ordering Facility: [facility] Address: [address] [place] [address] Performed By: #### 5 7021-8 #### [facility] CLIA [id number] [address] [place] [address] 84654 Neutrophils (Bld) [#/Vol] 2.67 10*3/uL Normal 1.45-7.50 [facility] Comment on above: Order Comment: Speci men Type: BLOOD SPECIMEN Ordering Facility: [facility] Address: [address] [place] [address] Performed By: #### 5 7021-8 #### [facility] CLIA [id number] [address] [place] [address] 40185 Neutrophils/100 WBC (Bld) 44.2 % Normal [facility] Comment on above: Order Comment: Speci men Type: BLOOD SPECIMEN Ordering Facility: [facility] Address: [address] [place] [address] Performed By: #### 5 7021-8 #### [facility] CLIA [id number] [address] [place] [address] Nucleated RBC (Bld) [#/Vol] 10*3/uL Normal <0.01 [facility] Comment on above: Order Comment: Speci men Type: BLOOD SPECIMEN Ordering Facility: [facility] Address: [address] [place] [address] Performed By: #### 5 7021-8 #### [facility] CLIA [id number] [address] [place] [address] 82485 Nucleated RBC/100 WBC (Bld) [Ratio] 0.0 /100 WBC Normal [facility] Comment on above: Order Comment: Speci men Type: BLOOD SPECIMEN Ordering Facility: [facility] Address: [address] [place] [address] Performed By: #### 5 7021-8 #### [facility] CLIA [id number] [address] [place] [address] 0[address]69 Platelet mean volume (Bld) [Entitic vol] 11.0 fL Normal 9.0-12.7 [facility] Comment on above: Order Comment: Speci men Type: BLOOD SPECIMEN Ordering Facility: [facility] Address: [address] [place] [address] Performed By: #### 5 7021-8 #### [facility] CLIA [id number] [address] [place] [address] Platelets (Bld) [#/Vol] 281 10*3/uL Normal 150-400 [facility] Comment on above: Order Comment: Speci men Type: BLOOD SPECIMEN Ordering Facility: [facility] Address: [address] [place] [address] Performed By: #### 5 7021-8 #### [facility] CLIA [id number] [address] [place] [address] RBC (Bld) [#/Vol] 4.26 10*6/uL Normal 4.20-6.00 [facility] Comment on above: Order Comment: Speci men Type: BLOOD SPECIMEN Ordering Facility: [facility] Address: [address] [place] [address] Performed By: #### 5 7021-8 #### [facility] CLIA [id number] [address] [place] [address] 08947 WBC (Bld) [#/Vol] 6.03 10*3/uL Normal 3.70-11.00 [facility] Comment on above: Order Comment: Speci men Type: BLOOD SPECIMEN Ordering Facility: [facility] Address: [address] [place] [address] Performed By: #### 5 7021-8 #### [facility] CLIA [id number] [address] [place] [address] Hyun 11-03-2024 CNPN Telephone ([place]) ----- SHANTEL MELENDEZ ([id number]) 1960 M Date Time Provider Department 11/03/24 RACQUEL COLE HEMTSA During your visit today, we recorded the [...] [C76.0] Order(s):COMPREHENSIVE METABOLIC PANEL [SQCMP] Order #: [id number] FUTURE COMPLETE BLOOD COUNT AND DIFFERENTIAL [SQCBCDIF] Order #: [id number] FUTURE Prescriptions as of 11/03/2024 - amLODIPine [...] Encounter Status:Closed by RACQUEL COLE on 11/03/24 Normal [facility] CT CHEST W IVCONon CT CHEST W IVCON * * *Final Report* * * DATE OF EXAM: Nov 03 2024 8:41AM [facility] 0539 - CT CHEST W [...] any questions regarding this interpretation, please call [phone]. If you are unable to reach us at the number above, please feel free to contact [facility] eRadiology at [phone]. [id number] Normal [facility] CT Chest W contrast Tristin [...] any questions regarding this interpretation, please call [phone]. If you are unable to reach us at the number above, please feel free to contact [facility] eRadiology at [phone]. DIVISION OF RADIOLOGY * * *Final Report* * * DATE OF EXAM: Nov 03 2024 8:41AM [facility] 0539 - CT CHEST W [...] No additional findings. DIVISION OF RADIOLOGY Provider, [facility] - 11/03/2024 * * *Final Report* * * DATE OF EXAM: Nov 03 2024 8:41AM [facility] 0539 - CT CHEST W [...] any questions regarding this interpretation, please call [phone]. If you are unable to reach us at the number above, please feel free to contact [facility] eRadiology at [phone]. [facility] CT NECK SOFT TISSUE W IVCONo n 11-03-2024 CT NECK SOFT TISSUE W IVCON * * *Final Report* * * DATE OF EXAM: Nov 03 2024 8:41AM [facility] 0013 - CT NECK SOFT [...] evidence of abnormal lymph nodes. [email or web address] Transcribe Date/Time: Nov 03 2024 8:53A Dictated by: BENJAMIN AL MD This examination was interpreted and the report reviewed and electronically signed by: BENJAMIN AL MD on Nov 03 2024 9:01AM EST Thank you for allowing us to participate in the care of your patient. Should there be any questions regarding this interpretation, please call [phone]. If you are unable to reach us at the number above, please feel free to contact [facility] eRadiology at [phone]. [id number] Normal [facility] CT Neck W contrast Tristin 10-16 IMPRESSION: Primary: Category 1. Expected post-treatment changes in the neck without evidence of recurrent disease in the primary site. Neck: Category 1. No evidence of abnormal lymph nodes. [email or web address] Transcribe Date/Time: Nov 03 2024 8:53A Dictated by: BENJAMIN AL MD This examination was interpreted and the report reviewed and electronically signed by: BENJAMIN AL MD on Nov 03 2024 9:01AM EST Thank you for allowing us to participate in the care of your patient. Should there be any questions regarding this interpretation, please call [phone]. If you are unable to reach us at the number above, please feel free to contact [facility] eRadiology at [phone]. DIVISION OF RADIOLOGY * * *Final Report* * * DATE OF EXAM: Nov 03 2024 8:41AM [facility] 0013 - CT NECK SOFT [...] Other: Not applicable. DIVISION OF RADIOLOGY Provider, [facility] - 11/03/2024 * * *Final Report* * * DATE OF EXAM: Nov 03 2024 8:41AM [facility] 0013 - CT NECK SOFT [...] evidence of abnormal lymph nodes. [email or web address] Transcribe Date/Time: Nov 03 2024 8:53A Dictated by: BNEJAMIN AL MD This examination was interpreted and the report reviewed and electronically signed by: BENJAMIN AL MD on Nov 03 2024 9:01AM EST Thank you for allowing us to participate in the care of your patient. Should there be any questions regarding this interpretation, please call [phone]. If you are unable to reach us at the number above, please feel free to contact [facility] eRadiology at [phone]. [facility] CT Neck W contrast IVOrdered By: Ccf Provider on 11-03-2024 [facility] Eosinophils/100 WBC Auto (Bl d)on 11-03-2024 Eosinophils/100 WBC (Bld) Automated eosinophil % [facility] Eosinophils/100 WBC (Bld) 2.7 % [facility] Erythrocyte distribution wid th Auto (RBC) [Ratio]on 11-03-2024 Erythrocyte distribution width (RBC) [Ratio] Erythrocyte distribution width [Ratio] by Automated count 11.5-15.0 [facility] Erythrocyte distribution width (RBC) [Ratio] 14.6 % 11.5-15.0 [facility] Hematocrit Auto (Bld) [Volum e fraction]on 11-03-2024 Hematocrit (Bld) [Volume fraction] Hematocrit [Volume Fraction] of Blood by Automated count 39.0-51.0 [facility] Hematocrit (Bld) [Volume fraction] 40.0 % 39.0-51.0 [facility] Hemoglobin [Mass/volume] in Bloodon 11-03-2024 Hemoglobin (Bld) [Mass/Vol] Hemoglobin [Mass/volume] in Blood 13.0-17.0 [facility] Hemoglobin (Bld) [Mass/Vol] 13.6 g/dL 13.0-17.0 [facility] Laboratory - Hematology and Cell countson 11-03-2024 Eosinophils (Bld) [#/Vol] 0.16 10*3/uL <0.46 [facility] Immature granulocytes/100 WBC (Bld) 0.2 % [facility] Leukocytes [#/volume] correc mone for nucleated erythrocytes in Blood by Automated counon 11-03-2024 WBC corrected for nucl RBC Auto (Bld) [#/Vol] Leukocytes [#/volume] corrected for nucleated erythrocytes in Blood by Automated coun 3.70-. [facility] WBC corrected for nucl RBC Auto (Bld) [#/Vol] 6.03 k/uL 3.70-11.00 [facility] Lymphocytes Auto (Bld) [#/Vo l]on 11-03-2024 Lymphocytes (Bld) [#/Vol] Lymphocytes [#/volume] in Blood by Automated count 1.00-4.00 [facility] Lymphocytes (Bld) [#/Vol] 2.73 10*3/uL 1.00-4.00 [facility] Lymphocytes/100 WBC Auto (Bl d)on 11-03-2024 Lymphocytes/100 WBC (Bld) Lymphocytes/100 leukocytes in Blood by Automated count [facility] Lymphocytes/100 WBC (Bld) 45.3 % [facility] MCH Auto (RBC) [Entitic mass ]on 11-03-2024 MCH (RBC) [Entitic mass] MCH [Entitic mass] by Automated count 26.0-34.0 [facility] MCH (RBC) [Entitic mass] 31.9 pg 26.0-34.0 [facility] MCHC Auto (RBC) [Mass/Vol]on 11-03-2024 MCHC (RBC) [Mass/Vol] MCHC [Mass/volume] by Automated count 30.5-36.0 [facility] MCHC (RBC) [Mass/Vol] 34.0 g/dL 30.5-36.0 [facility] MCV Auto (RBC) [Entitic vol] on 11-03-2024 MCV (RBC) [Entitic vol] MCV [Entitic volume] by Automated count 80.0-100.0 [facility] MCV (RBC) [Entitic vol] 93.9 fL 80.0-100.0 [facility] Monocytes Auto (Bld) [#/Vol] on 11-03-2024 Monocytes (Bld) [#/Vol] Automated blood monocyte count <0.87 [facility] Monocytes (Bld) [#/Vol] 0.40 10*3/uL <0.87 [facility] Monocytes/100 WBC Auto (Bld) on 11-03-2024 Monocytes/100 WBC (Bld) Automated monocyte % [facility] Monocytes/100 WBC (Bld) 6.6 % [facility] Neutrophils Auto (Bld) [#/Vo l]on 11-03-2024 Neutrophils (Bld) [#/Vol] Neutrophils [#/volume] in Blood by Automated count 1.45-7.50 [facility] Neutrophils (Bld) [#/Vol] 2.67 10*3/uL 1.45-7.50 [facility] Neutrophils/100 WBC Auto (Bl d)on 11-03-2024 Neutrophils/100 WBC (Bld) Automated neutrophil % [facility] Neutrophils/100 WBC (Bld) 44.2 % [facility] No Panel Informationon 11-03 Radiology Study observation (narrative) [facility] Immature Granulocyte # (Auto) <0.03 k/uL <0.10 [facility] Nucleated RBC Auto (Bld) [#/ Vol]on 11-03-2024 Nucleated RBC (Bld) [#/Vol] Nucleated erythrocytes [#/volume] in Blood by Automated count <0.01 [facility] Nucleated RBC (Bld) [#/Vol] 10*3/uL <0.01 [facility] Nucleated erythrocytes [Pres ence] in Blood by Automated counton 11-03-2024 Nucleated RBC Auto Ql (Bld) Nucleated erythrocytes [Presence] in Blood by Automated count [facility] Nucleated RBC Auto Ql (Bld) 0.0 /100{WBC} [facility] Platelet mean volume Auto (B ld) [Entitic vol]on 11-03-2024 Platelet mean volume (Bld) [Entitic vol] Platelet mean volume [Entitic volume] in Blood by Automated count 9.0-12.7 [facility] Platelet mean volume (Bld) [Entitic vol] 11.0 fL 9.0-12.7 [facility] Platelets Auto (Bld) [#/Vol] on 11-03-2024 Platelets (Bld) [#/Vol] Platelets [#/volume] in Blood by Automated count 150-400 [facility] Platelets (Bld) [#/Vol] 281 10*3/uL 150-400 [facility] RBC Auto (Bld) [#/Vol]on RBC (Bld) [#/Vol] Erythrocytes [#/volu me] in Blood by Automated count 4.20-6.00 [facility] RBC (Bld) [#/Vol] 4.26 10*6/uL 4.20-6.00 [facility] MR TRANSFER OF OUTSIDE FILMS on 10-21-2024 MR TRANSFER OF OUTSIDE FILMS Outside images for comparison or treatment purposes, not interpreted by Radiologists. Normal [facility] Study Interpretation of outs jeffrey studyon 10-21-2024 Outside images for comparison or treatment purposes, not interpreted by Radiologists. IMAGING X-ray reportOrdered By: Evie Eubanks on 10-10-2024 Study report [facility] Main [place] [address] XRay Report Signed Patient: Shantel Melendez MR#: [id number] : 1960 Acct:[id number] Age/Sex: 63 / M ADM Date: 5 Loc: XD Room: Type: [facility] CLI Attending Dr: Solomon Narayanan PAFranC Copies to: Solomon Narayanan PAC~ Ordering Provider: [...] Eubanks M.D. 10/10/2024 3:02 PM Dictation Location: [place] [address] Transcribed By: MARISA 10/10/24 1502 Dictated By: Dorothy Eubanks MD 10/10/24 145 Signed By: 10/10/24 1507 [facility] Work Phone: XR cervical spine 2Von 10-10 XR cervical spine 2V [facility] [place] [address] [place] [address] XRay Report Signed Patient: Shantel Melendez MR#: [id number] : 1960 Acct:[id number] Age/Sex: 63 / M ADM Date: 10/10/24 Loc: XD Room: Type: [facility] Attending Dr: Solomon Narayanan PA-C Copies to: Solomon Narayanan PAC Ordering Provider: Sloomon Narayanan PAC Date of Service: 10/10/24 XR/XR [...] Eubanks M.D. 10/10/2024 3:02 PM Dictation Location: [place] [address] Transcribed By: MARISA 10/10/24 150 Dictated By: Dorothy Eubanks MD 10/10/241454 Signed By: 10/10/24 1502 Normal [facility] Alanine aminotransferase [En zymatic activity/volume] in Serum or PlasmaOrdered By: Griselda Hastings on 10-07-2024 ALT [Catalytic activity/Vol] Alanine aminotransferase [Enzymatic activity/volume] in Serum or Plasma Low 7-52 [facility] Albumin [Mass/volume] in Ser um or Plasma by Bromocresol green (BCG) dye binding methoOrdered By: Griselda Hastings on 10-07-2024 Albumin BCG dye [Mass/Vol] Albumin [Mass/volume] in Serum or Plasma by Bromocresol green (BCG) dye binding metho Low 3.5-5.7 [facility] Alkaline phosphatase [Enzyma tic activity/volume] in Serum or PlasmaOrdered By: Griselda Hastings on 10-07-2024 ALP [Catalytic activity/Vol] Alkaline phosphatase [Enzymatic activity/volume] in Serum or Plasma 34-104 [facility] Aspartate aminotransferase [ Enzymatic activity/volume] in Serum or PlasmaOrdered By: Griselda Hastings on 10-07-2024 AST [Catalytic activity/Vol] Aspartate aminotransferase [Enzymatic activity/volume] in Serum or Plasma Low 13-39 [facility] Basophils Auto (Bld) [#/Vol] Ordered By: Griselda Hastings on 10-07-2024 Basophils (Bld) [#/Vol] Automated basophil count 0.0-0.2 [facility] Basophils/100 WBC Auto (Bld) Ordered By: Griselda Hastings on 10-07-2024 Basophils/100 WBC (Bld) Automated basophil % . [facility] Bilirubin.total [Mass/volume ] in Serum or PlasmaOrdered By: Griselda Hastings on 10-07-2024 Bilirubin [Mass/Vol] Bilirubin.total [Mass/volume] in Serum or Plasma 0.3-1.0 [facility] Calcium [Mass/volume] in Ser um or PlasmaOrdered By: Griselda Hastings on 10-07-2024 Calcium [Mass/Vol] Calcium [Mass/volume ] in Serum or Plasma 8.6-10.3 [facility] Carbon dioxide, total [Moles /volume] in Serum or PlasmaOrdered By: Griselda Hastings on 10-07-2024 CO2 [Moles/Vol] Carbon dioxide, tota l [Moles/volume] in Serum or Plasma 21.0-31.0 [facility] Chloride [Moles/volume] in [place] or PlasmaOrdered By: Griselda Hastings on 10-07-2024 Chloride [Moles/Vol] Chloride [Moles/vol ume] in Serum or Plasma 98-107 [facility] Cholesterol [Mass/volume] in Serum or PlasmaOrdered By: Griselda Hastings on 10-07-2024 Cholesterol [Mass/Vol] Cholesterol [Mass /volume] in Serum or Plasma High 140-200 [facility] Comment on above: Chol less than 200 m g/dl low riskChol 201-239 mg/dl borderline riskChol 240 mg/dl and greater high risk Cholesterol in HDL [Mass/vol ume] in Serum or PlasmaOrdered By: Griselda Hastings on 10-07-2024 Cholesterol in HDL [Mass/Vol] Serum or plasma high density lipoprotein (HDL) cholesterol measurement 23-92 [facility] Comment on above: HDL CHOL ATP-III CLA SSIFICATION Cardiovascular RiskHDL > or equal to 60 mg/dL LOWHDL < 40 mg/dL HIGH Cholesterol in LDL Calc [Mas s/Vol]Ordered By: Griselda Hastings on 10-07-2024 Cholesterol in LDL [Mass/Vol] Cholesterol in LDL [Mass/volume] in Serum or Plasma by calculation High 0-100 [facility] Comment on above: LDL ATP III CLASSIFI CATIONLDL less than 100 mg/dL OptimalLDL 100-129 mg/dL Near or above optimalLDL 130-159 mg/dL Borderline highLDL 160-189 mg/dL HighLDL greater than 189 mg/dL Very high Cholesterol in VLDL Calc [Ma ss/Vol]Ordered By: Griselda Hastings on 10-07-2024 Cholesterol in VLDL [Mass/Vol] Cholesterol in VLDL [Mass/volume] in Serum or Plasma by calculation [facility] Clostridioides difficile tox in B tcdB gene [Presence] in Stool by JER with probe deteOrdered By: Manisha Negron on 10-07-2024 C. difficile toxin B tcdB gene JER+probe Ql (Stl) Clostridioides difficile toxin B tcdB gene [Presence] in Stool by JER with probe dete Negative [facility] Comment on above: Testing performed by RT-PCR Clostridium Difficileon 09-17 Clostridium Difficile Negative Normal Negative [facility] Comment on above: Result Comment: Test ing performed by RT-PCR PERFORMED BY: [place] [address] PATHOLOGIST WATER SERVER RAKEL LAZARO M.D. Performed By: #### C DT #### [address] Complete Blood Count Auto Di ffon 10-07-2024 Basophils (Bld) [#/Vol] 0.0 10*3/uL Normal 0.0-0.2 [facility] Comment on above: Result Comment: PERF ORMED BY: [place] [address] PATHOLOGIST WATER SERVER RAKEL LAZARO M.D. Performed By: #### L IPASE, BMP, CBC, HEPATIC #### [address] Basophils/100 WBC (Bld) 0.8 % Normal . [facility] Comment on above: Performed By: #### L IPASE, BMP, CBC, HEPATIC #### [address] Eosinophils (Bld) [#/Vol] 0.0 10*3/uL Normal 0.0-0.45 [facility] Comment on above: Performed By: #### L IPASE, BMP, CBC, HEPATIC #### [address] Eosinophils/100 WBC (Bld) 0.8 % Normal . [facility] Comment on above: Performed By: #### L IPASE, BMP, CBC, HEPATIC #### [address] Erythrocyte distribution width (RBC) [Ratio] 13.7 % Normal 12.0-14.8 [facility] Comment on above: Performed By: #### L IPASE, BMP, CBC, HEPATIC #### [address] Hematocrit (Bld) [Volume fraction] 36.6 % Low 38.8-50.0 [facility] Comment on above: Performed By: #### L IPASE, BMP, CBC, HEPATIC #### [address] Hemoglobin (Bld) [Mass/Vol] 12.8 g/dL Low 13.0-17.0 [facility] Comment on above: Performed By: #### L IPASE, BMP, CBC, HEPATIC #### [address] Lymphocytes (Bld) [#/Vol] 1.7 10*3/uL Normal 1.00-4.8 [facility] Comment on above: Performed By: #### L IPASE, BMP, CBC, HEPATIC #### [address] Lymphocytes/100 WBC (Bld) 31.1 % Normal . [facility] Comment on above: Performed By: #### L IPASE, BMP, CBC, HEPATIC #### [address] MCH (RBC) [Entitic mass] 32.4 pg Normal 27.5-35.2 [facility] Comment on above: Performed By: #### L IPASE, BMP, CBC, HEPATIC #### [address] MCV (RBC) [Entitic vol] 92.8 fL Normal 83.5-101 [facility] Comment on above: Performed By: #### L IPASE, BMP, CBC, HEPATIC #### [address] Mean Corpuscular HGB Conc 34.9 g/dL Normal 32.5-35.6 [facility] Comment on above: Performed By: #### L IPASE, BMP, CBC, HEPATIC #### [address] Monocytes (Bld) [#/Vol] 0.3 10*3/uL Normal 0.0-0.8 [facility] Comment on above: Performed By: #### L IPASE, BMP, CBC, HEPATIC #### [address] Monocytes/100 WBC (Bld) 4.9 % Normal . [facility] Comment on above: Performed By: #### L IPASE, BMP, CBC, HEPATIC #### [address] Neutrophils (Bld) [#/Vol] 3.4 10*3/uL Normal 1.8-7.7 [facility] Comment on above: Performed By: #### L IPASE, BMP, CBC, HEPATIC #### [address] Neutrophils/100 WBC (Bld) 62.4 % Normal . [facility] Comment on above: Performed By: #### L IPASE, BMP, CBC, HEPATIC #### [address] NRBC% 0.0 /100{WBC} Normal 0-0.5 [facility] Comment on above: Performed By: #### L IPASE, BMP, CBC, HEPATIC #### [address] Platelet mean volume (Bld) [Entitic vol] 8.8 fL Normal 6.6-10.1 [facility] Comment on above: Performed By: #### L IPASE, BMP, CBC, HEPATIC #### [address] Platelets (Bld) [#/Vol] 343 10*3/uL Normal 150-450 [facility] Comment on above: Performed By: #### L IPASE, BMP, CBC, HEPATIC #### [place] [address] [place] RBC (Bld) [#/Vol] 3.94 10*6/uL Normal 3.90-5.60 [facility] Comment on above: Performed By: #### L IPASE, BMP, CBC, HEPATIC #### [place] [address] WBC (Bld) [#/Vol] 5.5 10*3/uL Normal 4.1-10.5 [facility] Comment on above: Performed By: #### L IPASE, BMP, CBC, HEPATIC #### [place] [address] Comprehensive Metabolic Pane chanel 10-07-2024 Albumin [Mass/Vol] 3.4 g/dL Low 3.5-5.7 [facility] Comment on above: Performed By: #### L IPASE, BMP, CBC, HEPATIC #### [place] [address] Albumin/Globulin [Mass ratio] 1.8 {ratio} Normal [facility] Comment on above: Performed By: #### L IPASE, BMP, CBC, HEPATIC #### [place] [address] ALP [Catalytic activity/Vol] 62 U/L Normal 34-104 [facility] Comment on above: Performed By: #### L IPASE, BMP, CBC, HEPATIC #### [place] [address] ALT [Catalytic activity/Vol] 6 U/L Low 7-52 [facility] Comment on above: Performed By: #### L IPASE, BMP, CBC, HEPATIC #### [facility] [address] Anion gap [Moles/Vol] 9.7 mmol/L Normal 6.0-15.0 [facility] Comment on above: Performed By: #### L IPASE, BMP, CBC, HEPATIC #### [place] [address] AST [Catalytic activity/Vol] 8 U/L Low 13-39 [facility] Comment on above: Performed By: #### L IPASE, BMP, CBC, HEPATIC #### [address] Bilirubin [Mass/Vol] 0.6 mg/dL Normal 0.3-1.0 [facility] Comment on above: Performed By: #### L IPASE, BMP, CBC, HEPATIC #### [address] Calcium [Mass/Vol] 9.3 mg/dL Normal 8.6-10.3 [facility] Comment on above: Performed By: #### L IPASE, BMP, CBC, HEPATIC #### [address] Chloride [Moles/Vol] 103 mmol/L Normal 98-107 [facility] Comment on above: Performed By: #### L IPASE, BMP, CBC, HEPATIC #### [address] CO2 [Moles/Vol] 29.1 mmol/L Normal 21.0-31.0 [facility] Comment on above: Performed By: #### L IPASE, BMP, CBC, HEPATIC #### [address] Creatinine [Mass/Vol] 0.74 mg/dL Normal 0.70-1.30 [facility] Comment on above: Performed By: #### L IPASE, BMP, CBC, HEPATIC #### [address] GFR/1.73 sq M.predicted MDRD (S/P/Bld) [Vol rate/Area] mL/min/{1.73_m2} Normal [facility] Comment on above: Performed By: #### L IPASE, BMP, CBC, HEPATIC #### [address] Globulin (S) [Mass/Vol] 1.9 g/dL Normal [facility] Comment on above: Performed By: #### L IPASE, BMP, CBC, HEPATIC #### [address] Glucose [Mass/Vol] 84 mg/dL Normal 70-100 [facility] Comment on above: Result Comment: [place] Glucose Reference Range is dependent on time and content of last meal. Glucose of more than 200 mg/dL in a nonstressed, ambulatory subject supports the diagnosis of Diabetes Mellitus. ADA recommended reference range Performed By: #### L IPASE, BMP, CBC, HEPATIC #### [address] Potassium [Moles/Vol] 4.8 mmol/L Normal 3.5-5.1 [facility] Comment on above: Performed By: #### L IPASE, BMP, CBC, HEPATIC #### [address] Protein [Mass/Vol] 5.3 g/dL Low 6.4-8.9 [facility] Comment on above: Performed By: #### L IPASE, BMP, CBC, HEPATIC #### [address] Sodium [Moles/Vol] 137 mmol/L Normal 136-145 [facility] Comment on above: Performed By: #### L IPASE, BMP, CBC, HEPATIC #### [address] Urea nitrogen [Mass/Vol] 7 mg/dL Normal 7-25 [facility] Comment on above: Performed By: #### L IPASE, BMP, CBC, HEPATIC #### [address] Creatinine [Mass/volume] in Serum or PlasmaOrdered By: Griselda Hastings on 10-07-2024 Creatinine [Mass/Vol] Creatinine [Mass/v olume] in Serum or Plasma 0.70-1.30 [facility] Eosinophils Auto (Bld) [#/Vo l]Ordered By: Griselda Hastings on 10-07-2024 Eosinophils (Bld) [#/Vol] Automated eosinophil count 0.0-0.45 [facility] Eosinophils/100 WBC Auto (Bl d)Ordered By: Griselda Hastings on 10-07-2024 Eosinophils/100 WBC (Bld) Automated eosinophil % . [facility] Erythrocyte distribution wid th Auto (RBC) [Ratio]Ordered By: Griselda Hastings on 10-07-2024 Erythrocyte distribution width (RBC) [Ratio] Erythrocyte distribution width [Ratio] by Automated count 12.0-14.8 [facility] Globulin Calc (S) [Mass/Vol] Ordered By: Griselda Hastings on 10-07-2024 Globulin (S) [Mass/Vol] Serum globulin measurement by calculation (mass/volume) [facility] Glucose [Mass/volume] in Ser um or PlasmaOrdered By: Griselda Hastings on 10-07-2024 Glucose [Mass/Vol] Glucose [Mass/volume ] in Serum or Plasma 70-100 [facility] Comment on above: ADA recommended refe rence rangeRandom Glucose Reference Range is dependent on time and content of last meal. Glucose of more than 200 mg/dL in a nonstressed, ambulatory subject supports the diagnosis of Diabetes Mellitus. Hematocrit Auto (Bld) [Volum e fraction]Ordered By: Griselda Hastnigs on 10-07-2024 Hematocrit (Bld) [Volume fraction] Hematocrit [Volume Fraction] of Blood by Automated count Low 38.8-50.0 [facility] Hemoglobin [Mass/volume] in BloodOrdered By: Griselda Hastings on 10-07-2024 Hemoglobin (Bld) [Mass/Vol] Hemoglobin [Mass/volume] in Blood Low 13.0-17.0 [facility] Leukocytes [#/volume] correc mone for nucleated erythrocytes in Blood by Automated counOrdered By: Griselda Hastings on 10-07-2024 WBC corrected for nucl RBC Auto (Bld) [#/Vol] Leukocytes [#/volume] corrected for nucleated erythrocytes in Blood by Automated coun 4.1-10.5 [facility] Lipid Panelon 10-07-2024 Cholesterol [Mass/Vol] 204 mg/dL High 140-200 [facility] Comment on above: Result Comment: Chol less than 200 mg/dl low risk Chol 201-239 mg/dl borderline risk Chol 240 mg/dl and greater high risk Performed By: #### L IPASE, BMP, CBC, HEPATIC #### [facility] [address] Cholesterol in HDL [Mass/Vol] 35 mg/dL Normal 23-92 [facility] Comment on above: Result Comment: HDL CHOL ATP-III CLASSIFICATION Cardiovascular Risk HDL > or equal to 60 mg/dL LOW HDL < 40 mg/dL HIGH Performed By: #### L IPASE, BMP, CBC, HEPATIC #### [facility] [address] Cholesterol.total/Chol esterol in HDL [Mass ratio] 5.8 {ratio} Normal <5.0 [facility] Comment on above: Performed By: #### L IPASE, BMP, CBC, HEPATIC #### [place] [address] LDL Cholesterol,Calculated 145 mg/dL High 0-100 [facility] Comment on above: Result Comment: LDL ATP III CLASSIFICATION LDL less than 100 mg/dL Optimal LDL 100-129 mg/dL Near or above optimal LDL 130-159 mg/dL Borderline high LDL 160-189 mg/dL High LDL greater than 189 mg/dL Very high Performed By: #### L IPASE, BMP, CBC, HEPATIC #### [place] [address] [place] [id number] [facility] Triglyceride w/Reflex 118 mg/dL Normal 0-149 [facility] Comment on above: Result Comment: TRIG ATP III CLASSIFICATION TRIG less than 150 mg/dL Normal TRIG 150-199 mg/dL Borderline high TRIG 200-500 mg/dL High TRIG greater than 500 mg/dL Very high Standard traceable to the Center for Disease Conrtrol and Prevention (CDC) test method. Performed By: #### L IPASE, BMP, CBC, HEPATIC #### [place] [address] [place] [id number] [facility] VLDL CHOLESTEROL 23 mg/dL Normal [facility] Comment on above: Performed By: #### L IPASE, BMP, CBC, HEPATIC #### [place] [address] [place] [address] [place] Lymphocytes Auto (Bld) [#/Vo l]Ordered By: Griselda Hastings on 10-07-2024 Lymphocytes (Bld) [#/Vol] Lymphocytes [#/volume] in Blood by Automated count 1.00-4.8 [facility] Lymphocytes/100 WBC Auto (Bl d)Ordered By: Griselda Hastings on 10-07-2024 Lymphocytes/100 WBC (Bld) Lymphocytes/100 leukocytes in Blood by Automated count . [facility] MCH Auto (RBC) [Entitic mass ]Ordered By: Griselda Hastings on 10-07-2024 MCH (RBC) [Entitic mass] MCH [Entitic mass] by Automated count 27.5-35.2 [facility] MCHC Auto (RBC) [Mass/Vol]Or dered By: Griselda Hastings on 10-07-2024 MCHC (RBC) [Mass/Vol] MCHC [Mass/volume] by Automated count 32.5-35.6 [facility] MCV Auto (RBC) [Entitic vol] Ordered By: Griselda Hastings on 10-07-2024 MCV (RBC) [Entitic vol] MCV [Entitic volume] by Automated count 83.5-101 [facility] Monocytes Auto (Bld) [#/Vol] Ordered By: Griselda Hastings on 10-07-2024 Monocytes (Bld) [#/Vol] Automated blood monocyte count 0.0-0.8 [facility] Monocytes/100 WBC Auto (Bld) Ordered By: Griselda Hastings on 10-07-2024 Monocytes/100 WBC (Bld) Automated monocyte % . [facility] Neutrophils Auto (Bld) [#/Vo l]Ordered By: Griselda Hastings on 10-07-2024 Neutrophils (Bld) [#/Vol] Neutrophils [#/volume] in Blood by Automated count 1.8-7.7 [facility] Neutrophils/100 WBC Auto (Bl d)Ordered By: Griselda Hastings on 10-07-2024 Neutrophils/100 WBC (Bld) Automated neutrophil % . [facility] No Panel InformationOrdered By: Griselda Hastings on 10-07-2024 Estimated GFR (CKD-EPI) > 60.0 mL/Min [facility] Creatinine Clearance (Chem N/A [facility] Nucleated erythrocytes [Pres ence] in Blood by Automated countOrdered By: Griselda Hastings on 10-07-2024 Nucleated RBC Auto Ql (Bld) Nucleated erythrocytes [Presence] in Blood by Automated count 0-0.5 [facility] PSA Screen (Yearly Only)on 0 10-07-2024 PSA Screen (Yearly Only) 0.670 ng/mL Normal 0.000-4.00 0 [facility] Comment on above: Result Comment: Seri al tumor marker results determined by assays using different manufacturers or methods may not be comparable. [facility] mechanic insulator and method: [employer] DXI, CHEMILUMINESCENT IMMUNOASSAY. PERFORMED BY: [place] [address] PATHOLOGIST WATER SERVER RAKEL LAZARO M.D. Performed By: #### L IPASE, BMP, CBC, HEPATIC #### [address] Platelet mean volume Auto (B ld) [Entitic vol]Ordered By: Griselda Hastings on 10-07-2024 Platelet mean volume (Bld) [Entitic vol] Platelet mean volume [Entitic volume] in Blood by Automated count 6.6-10.1 [facility] Platelets Auto (Bld) [#/Vol] Ordered By: Griselda Hastings on 10-07-2024 Platelets (Bld) [#/Vol] Platelets [#/volume] in Blood by Automated count 150-450 [facility] Potassium [Moles/volume] in Serum or PlasmaOrdered By: Griselda Hastings on 10-07-2024 Potassium [Moles/Vol] Potassium [Moles/v olume] in Serum or Plasma 3.5-5.1 [facility] Prostate specific Ag [Mass/v olume] in Serum or PlasmaOrdered By: Griselda Hastings on 10-07-2024 Prostate specific Ag [Mass/Vol] Prostate specific Ag [Mass/volume] in Serum or Plasma 0.000-4.00 0 [facility] Comment on above: Serial tumor marker results determined by assays using different manufacturers or methods may not be comparable.[facility] mechanic insulator and method:[employer] DXI, CHEMILUMINESCENT IMMUNOASSAY. Protein [Mass/volume] in Ser um or PlasmaOrdered By: Griselda Hastings on 10-07-2024 Protein [Mass/Vol] Protein [Mass/volume ] in Serum or Plasma Low 6.4-8.9 [facility] RBC Auto (Bld) [#/Vol]Ordere d By: Griselda Hastings on 10-07-2024 RBC (Bld) [#/Vol] Erythrocytes [#/volu me] in Blood by Automated count 3.90-5.60 [facility] Serum or plasma albumin/glob ulin mass ratioOrdered By: Griselda Hastings on 10-07-2024 Albumin/Globulin [Mass ratio] Serum or plasma albumin/globulin mass ratio [facility] Serum or plasma anion gap de terminationOrdered By: Griselda Hastings on 10-07-2024 Anion gap [Moles/Vol] Serum or plasma an ion gap determination 6.0-15.0 [facility] Serum or plasma total choles terol/high density lipoprotein (HDL) cholesterol mass ratOrdered By: Griselda Hastings on 10-07-2024 Cholesterol.total/Chol esterol in HDL [Mass ratio] Serum or plasma total cholesterol/high density lipoprotein (HDL) cholesterol mass rat <5.0 [facility] Sodium [Moles/volume] in Ser um or PlasmaOrdered By: Griselda Hastings on 10-07-2024 Sodium [Moles/Vol] Sodium [Moles/volume ] in Serum or Plasma 136-145 [facility] Thyroid Stimulating Hormoneo n 10-07-2024 TSH Qn 1.03 m[IU]/L Normal 0.45-5.33 [facility] Comment on above: Result Comment: PERF ORMED BY: [facility] [address] [place] [address] PATHOLOGIST WATER SERVER RAKEL LAZARO M.D. Performed By: #### L IPASE, BMP, CBC, HEPATIC #### [place] [address] [place] Thyrotropin [Units/volume] i n Serum or PlasmaOrdered By: Griselda Hastings on 10-07-2024 TSH Qn Thyrotropin [Units/volume] in Serum or Plasma 0.45-5.33 [facility] Triglyceride [Mass/volume] i n Serum or PlasmaOrdered By: Griselda Hastings on 10-07-2024 Triglyceride [Mass/Vol] Triglyceride [Mass/volume] in Serum or Plasma 0-149 [facility] Comment on above: TRIG ATP III CLASSIF ICATIONTRIG less than 150 mg/dL NormalTRIG 150-199 mg/dL Borderline highTRIG 200-500 mg/dL High TRIG greater than 500 mg/dL Very highStandard traceable to the Center for Disease Conrtrol and Prevention (CDC) test method. Urea nitrogen [Mass/volume] in Serum or PlasmaOrdered By: Griselda Hastings on 10-07-2024 Urea nitrogen [Mass/Vol] Urea nitrogen [Mass/volume] in Serum or Plasma 01-09 [facility] WBC Auto (Bld) [#/Vol]Ordere d By: Griselda Hastings on 10-07-2024 WBC (Bld) [#/Vol] Leukocytes [#/volume ] in Blood by Automated count 4.1-10.5 [facility] Alanine aminotransferase [En zymatic activity/volume] in Serum or PlasmaOrdered By: PROVIDER TEMP on 10-06-2024 ALT [Catalytic activity/Vol] Alanine aminotransferase [Enzymatic activity/volume] in Serum or Plasma [facility] Albumin [Mass/volume] in Ser um or Plasma by Bromocresol green (BCG) dye binding methoOrdered By: PROVIDER TEMP on 10-06-2024 Albumin BCG dye [Mass/Vol] Albumin [Mass/volume] in Serum or Plasma by Bromocresol green (BCG) dye binding metho 3.5-5.7 [facility] Alkaline phosphatase [Enzyma tic activity/volume] in Serum or PlasmaOrdered By: PROVIDER TEMP on 10-06-2024 ALP [Catalytic activity/Vol] Alkaline phosphatase [Enzymatic activity/volume] in Serum or Plasma 34-104 [facility] Appearance of UrineOrdered B y: Manisha Negron on 10-06-2024 Appearance (U) Urine appearance [facility] Aspartate aminotransferase [ Enzymatic activity/volume] in Serum or PlasmaOrdered By: PROVIDER TEMP on 10-06-2024 AST [Catalytic activity/Vol] Aspartate aminotransferase [Enzymatic activity/volume] in Serum or Plasma Low 13-39 [facility] Bacteria [Presence] in Urine by AutomatedOrdered By: Manisha Negron on 10-06-2024 Bacteria Auto Ql (U) Bacteria [Presence] in Urine by Automated None Seen [facility] Basic Metabolic Panelon 09-17 Anion gap [Moles/Vol] 8.5 mmol/L Normal 6.0-15.0 [facility] Comment on above: Performed By: #### L IPASE, BMP, CBC, HEPATIC #### [place] [address] [place] [address] [place] Calcium [Mass/Vol] 9.5 mg/dL Normal 8.6-10.3 [facility] Comment on above: Performed By: #### L IPASE, BMP, CBC, HEPATIC #### [place] [address] [place] [address] [place] Chloride [Moles/Vol] 104 mmol/L Normal 98-107 [facility] Comment on above: Performed By: #### L IPASE, BMP, CBC, HEPATIC #### [place] [address] [place] [address] [place] CO2 [Moles/Vol] 28.3 mmol/L Normal 21.0-31.0 [facility] Comment on above: Performed By: #### L IPASE, BMP, CBC, HEPATIC #### [place] [address] [place] [address] [place] Creatinine [Mass/Vol] 0.82 mg/dL Normal 0.70-1.30 [facility] Comment on above: Performed By: #### L IPASE, BMP, CBC, HEPATIC #### [place] [address] [place] [address] [place] Creatinine Clr Calc Pharmacy 91.52 Normal [facility] Comment on above: Performed By: #### L IPASE, BMP, CBC, HEPATIC #### [place] [address] [place] [address] [place] GFR/1.73 sq M.predicted MDRD (S/P/Bld) [Vol rate/Area] mL/min/{1.73_m2} Normal [facility] Comment on above: Performed By: #### L IPASE, BMP, CBC, HEPATIC #### [place] [address] [place] [address] [place] Glucose [Mass/Vol] 86 mg/dL Normal 70-100 [facility] Comment on above: Result Comment: [facility] Glucose Reference Range is dependent on time and content of last meal. Glucose of more than 200 mg/dL in a nonstressed, ambulatory subject supports the diagnosis of Diabetes Mellitus. ADA recommended reference range Performed By: #### L IPASE, BMP, CBC, HEPATIC #### [facility] [address] Potassium [Moles/Vol] 4.8 mmol/L Normal 3.5-5.1 [facility] Comment on above: Performed By: #### L IPASE, BMP, CBC, HEPATIC #### [facility] [address] Sodium [Moles/Vol] 136 mmol/L Normal 136-145 [facility] Comment on above: Performed By: #### L IPASE, BMP, CBC, HEPATIC #### [facility] [address] Urea nitrogen [Mass/Vol] 9 mg/dL Normal 7-25 [facility] Comment on above: Performed By: #### L IPASE, BMP, CBC, HEPATIC #### [facility] [address] Basophils Auto (Bld) [#/Vol] Ordered By: PROVIDER TEMP on 10-06-2024 Basophils (Bld) [#/Vol] Automated basophil count 0.0-0.2 [facility] Basophils/100 WBC Auto (Bld) Ordered By: PROVIDER TEMP on 10-06-2024 Basophils/100 WBC (Bld) Automated basophil % . [facility] Bilirubin Test strip Ql (U)O rdered By: Manisha Negron on 10-06-2024 Bilirubin Ql (U) Bilirubin.total [Presence] in Urine by Test strip Negative [facility] Bilirubin.direct [Mass/volum e] in Serum or PlasmaOrdered By: PROVIDER TEMP on 10-06-2024 Bilirubin.direct [Mass/Vol] Bilirubin.direct [Mass/volume] in Serum or Plasma 0.03-0.18 [facility] Bilirubin.total [Mass/volume ] in Serum or PlasmaOrdered By: PROVIDER TEMP on 10-06-2024 Bilirubin [Mass/Vol] Bilirubin.total [Mass/volume] in Serum or Plasma 0.3-1.[address] [facility] [address] abdomen pelvis w conon CT abdomen pelvis w con [facility] [place] [address] [place] [address] CT Scan Report Signed Patient: Shantel Melendez MR#: [id number] : 1960 Acct:[id number] Age/Sex: 63 / M ADM Date: 10/06/24 Loc: ER Room: Type: [facility] ER Attending Dr: Copies [...] Dorothy Eubanks M.D.10/06/2024 4:08 PM Dictation Location: [place] [address] Transcribed By: [facility] 10/06/24 1608 Dictated By: Dorothy Eubanks MD 10/06/24 1556 Signed By: 10/06/24 1608 Normal [facility] CT soft tissue neck w conon 10-06-2024 CT soft tissue neck w con [facility] [place] [address] [place] [address] CT Scan Report Signed Patient: Shantel Melendez MR#: [id number] : 1960 Acct:[id number] Age/Sex: 63 / M ADM Date: 10/06/24 Loc: ER Room: Type: [facility] ER Attending Dr: Copies [...] Dorothy Eubanks M.D.10/06/2024 3:56 PM Dictation Location: [place] [address] Transcribed By: MARISA 10/06/24 1556 Dictated By: Dorothy Eubanks MD 10/06/24 155 Signed By: 10/06/24 155 Normal [facility] Calcium [Mass/volume] in Ser um or PlasmaOrdered By: PROVIDER TEMP on 10-06-2024 Calcium [Mass/Vol] Calcium [Mass/volume ] in Serum or Plasma 8.6-10.3 [facility] Carbon dioxide, total [Moles /volume] in Serum or PlasmaOrdered By: PROVIDER TEMP on 10-06-2024 CO2 [Moles/Vol] Carbon dioxide, tota l [Moles/volume] in Serum or Plasma 21.0-31.0 [facility] Chloride [Moles/volume] in [place] or PlasmaOrdered By: PROVIDER TEMP on 10-06-2024 Chloride [Moles/Vol] Chloride [Moles/vol ume] in Serum or Plasma 98-107 [facility] Color Auto (U)Ordered By: Braeden Negron on 10-06-2024 Color (U) Color of Urine by Auto Yellow Fi [facility] Complete Blood Count Auto Di ffon 10-06-2024 Basophils (Bld) [#/Vol] 0.1 10*3/uL Normal 0.0-0.2 [facility] Comment on above: Result Comment: PERF ORMED BY: [facility] [address] [place] [address] PATHOLOGIST [employer] RAKEL LAZARO M.D. Performed By: #### L IPASE, BMP, CBC, HEPATIC #### [address] Basophils/100 WBC (Bld) 1.1 % Normal . [facility] Comment on above: Performed By: #### L IPASE, BMP, CBC, HEPATIC #### [address] Eosinophils (Bld) [#/Vol] 0.1 10*3/uL Normal 0.0-0.45 [facility] Comment on above: Performed By: #### L IPASE, BMP, CBC, HEPATIC #### [address] Eosinophils/100 WBC (Bld) 0.9 % Normal . [facility] Comment on above: Performed By: #### L IPASE, BMP, CBC, HEPATIC #### [address] Erythrocyte distribution width (RBC) [Ratio] 13.7 % Normal 12.0-14.8 [facility] Comment on above: Performed By: #### L IPASE, BMP, CBC, HEPATIC #### [address] Hematocrit (Bld) [Volume fraction] 37.0 % Low 38.8-50.0 [facility] Comment on above: Performed By: #### L IPASE, BMP, CBC, HEPATIC #### [address] Hemoglobin (Bld) [Mass/Vol] 12.8 g/dL Low 13.0-17.0 [facility] Comment on above: Performed By: #### L IPASE, BMP, CBC, HEPATIC #### [address] Lymphocytes (Bld) [#/Vol] 2.0 10*3/uL Normal 1.00-4.8 [facility] Comment on above: Performed By: #### L IPASE, BMP, CBC, HEPATIC #### [address] Lymphocytes/100 WBC (Bld) 28.2 % Normal . [facility] Comment on above: Performed By: #### L IPASE, BMP, CBC, HEPATIC #### [address] MCH (RBC) [Entitic mass] 32.0 pg Normal 27.5-35.2 [facility] Comment on above: Performed By: #### L IPASE, BMP, CBC, HEPATIC #### [address] MCV (RBC) [Entitic vol] 92.6 fL Normal 83.5-101 [facility] Comment on above: Performed By: #### L IPASE, BMP, CBC, HEPATIC #### [address] Mean Corpuscular HGB Conc 34.6 g/dL Normal 32.5-35.6 [facility] Comment on above: Performed By: #### L IPASE, BMP, CBC, HEPATIC #### [place] [address] [place] Monocytes (Bld) [#/Vol] 0.4 10*3/uL Normal 0.0-0.8 [facility] Comment on above: Performed By: #### L IPASE, BMP, CBC, HEPATIC #### [place] [address] [place] Monocytes/100 WBC (Bld) 17.04 % Normal 0.00-20.00 [facility] Comment on above: Performed By: #### L IPASE, BMP, CBC, HEPATIC #### [place] [address] [place] Monocytes/100 WBC (Bld) 5.4 % Normal . [facility] Comment on above: Performed By: #### L IPASE, BMP, CBC, HEPATIC #### [place] [address] [place] Neutrophils (Bld) [#/Vol] 4.7 10*3/uL Normal 1.8-7.7 [facility] Comment on above: Performed By: #### L IPASE, BMP, CBC, HEPATIC #### [place] [address] Neutrophils/100 WBC (Bld) 64.4 % Normal . [facility] Comment on above: Performed By: #### L IPASE, BMP, CBC, HEPATIC #### [facility] [address] NRBC% 0.1 /100{WBC} Normal 0-0.5 [facility] Comment on above: Performed By: #### L IPASE, BMP, CBC, HEPATIC #### [place] [address] Platelet mean volume (Bld) [Entitic vol] 8.4 fL Normal 6.6-10.1 [facility] Comment on above: Performed By: #### L IPASE, BMP, CBC, HEPATIC #### [place] [address] Platelets (Bld) [#/Vol] 357 10*3/uL Normal 150-450 [facility] Comment on above: Performed By: #### L IPASE, BMP, CBC, HEPATIC #### [address] RBC (Bld) [#/Vol] 3.99 10*6/uL Normal 3.90-5.60 [facility] Comment on above: Performed By: #### L IPASE, BMP, CBC, HEPATIC #### [address] WBC (Bld) [#/Vol] 7.2 10*3/uL Normal 4.1-10.5 [facility] Comment on above: Performed By: #### L IPASE, BMP, CBC, HEPATIC #### [address] Creatinine [Mass/volume] in Serum or PlasmaOrdered By: PROVIDER TEMP on 10-06-2024 Creatinine [Mass/Vol] Creatinine [Mass/v olume] in Serum or Plasma 0.70-1.30 [facility] Dipstick and Microscopicon 0 10-06-2024 Appearance (U) Clear Normal Clear [facility] Comment on above: Order Comment: Name Collection Type:: Clean-Voided Midstream Performed By: #### L IPASE, BMP, CBC, HEPATIC #### [place] [address] Bacteria,Urine None Seen Normal None Seen [facility] Comment on above: Order Comment: Name Collection Type:: Clean-Voided Midstream Performed By: #### L IPASE, BMP, CBC, HEPATIC #### [address] Bilirubin,Urine Negative Normal Negative [facility] Comment on above: Order Comment: Name Collection Type:: Clean-Voided Midstream Performed By: #### L IPASE, BMP, CBC, HEPATIC #### [address] Color (U) Yellow Normal Yellow [facility] Comment on above: Order Comment: Name Collection Type:: Clean-Voided Midstream Performed By: #### L IPASE, BMP, CBC, HEPATIC #### [address] Glucose Ql (U) Normal Normal Normal [facility] Comment on above: Order Comment: Name Collection Type:: Clean-Voided Midstream Performed By: #### L IPASE, BMP, CBC, HEPATIC #### [address] Hyaline Casts,Urine None Normal 0-8 [facility] Comment on above: Order Comment: Name Collection Type:: Clean-Voided Midstream Performed By: #### L IPASE, BMP, CBC, HEPATIC #### [address] Ketones Ql (U) Negative Normal Negative [facility] Comment on above: Order Comment: Name Collection Type:: Clean-Voided Midstream Performed By: #### L IPASE, BMP, CBC, HEPATIC #### [place] [address] [place] [address] [place] Leukocyte esterase Test strip Ql (U) Negative Normal Negative [facility] Comment on above: Order Comment: Name Collection Type:: Clean-Voided Midstream Performed By: #### L IPASE, BMP, CBC, HEPATIC #### [place] [address] [place] [address] [place] Mucus,Urine Rare Normal [facility] Comment on above: Order Comment: Name Collection Type:: Clean-Voided Midstream Result Comment: PERF ORMED BY: [place] [address] PATHOLOGIST WATER SERVER RAKEL LAZARO M.D. Performed By: #### L IPASE, BMP, CBC, HEPATIC #### [place] [address] [place] Nitrite,Urine Negative Normal Negative [facility] Comment on above: Order Comment: Name Collection Type:: Clean-Voided Midstream Performed By: #### L IPASE, BMP, CBC, HEPATIC #### [place] [address] [place] [address] [place] Occult Blood,Urine Trace High Negative [facility] Comment on above: Order Comment: Name Collection Type:: Clean-Voided Midstream Result Comment: PERF ORMED BY: [place] [address] PATHOLOGIST WATER SERVER RAKEL LAZARO M.D. Performed By: #### L IPASE, BMP, CBC, HEPATIC #### [place] [address] [place] [address] [place] pH (U) 5.5 [pH] Normal 5.0-9.0 [facility] Comment on above: Order Comment: Name Collection Type:: Clean-Voided Midstream Performed By: #### L IPASE, BMP, CBC, HEPATIC #### [place] [address] [place] [address] [place] Protein,Urine Negative Normal Negative [facility] Comment on above: Order Comment: Name Collection Type:: Clean-Voided Midstream Performed By: #### L IPASE, BMP, CBC, HEPATIC #### [address] RBC,Urine 1-2 Normal 0-4 [facility] Comment on above: Order Comment: Name Collection Type:: Clean-Voided Midstream Performed By: #### L IPASE, BMP, CBC, HEPATIC #### [address] Specificy [place],Urine >1.050 High 1.001-1.03 0 [facility] Comment on above: Order Comment: Name Collection Type:: Clean-Voided Midstream Performed By: #### L IPASE, BMP, CBC, HEPATIC #### [address] Squamous Epithelial Cell,Urine 1-2 Normal 0-2 [facility] Comment on above: Order Comment: Name Collection Type:: Clean-Voided Midstream Performed By: #### L IPASE, BMP, CBC, HEPATIC #### [address] Urobilinogen,Urine Normal Normal Normal [facility] Comment on above: Order Comment: Name Collection Type:: Clean-Voided Midstream Performed By: #### L IPASE, BMP, CBC, HEPATIC #### [address] WBC,Urine 1-2 Normal 0-4 [facility] Comment on above: Order Comment: Name Collection Type:: Clean-Voided Midstream Performed By: #### L IPASE, BMP, CBC, HEPATIC #### [address] ECG 12 lead ECGon 10-06-2024 ECG 12 lead ECG [facility] [place] [address] [place] [address] Electrocardiograph Report Signed Patient: Shantel Melendez MR#: [id number] : 1960 Acct:[id number] Age/Sex: 63 / M ADM Date: 10/06/24 Loc: ER Room: Type: [facility] ER Attending Dr: Ordering Provider: Manisha [...] now present Confirmed by Duke Kaufman DO ([id number]) on 10/06/2024 7:36:01 PM Referred By: Electronically Signed By: Duke Kaufman DO Transcribed By: MUS Signed By Duke Kaufman DO 1935 Normal [facility] Eosinophils Auto (Bld) [#/Vo l]Ordered By: PROVIDER TEMP on 10-06-2024 Eosinophils (Bld) [#/Vol] Automated eosinophil count 0.0-0.45 [facility] Eosinophils/100 WBC Auto (Bl d)Ordered By: PROVIDER TEMP on 10-06-2024 Eosinophils/100 WBC (Bld) Automated eosinophil % . [facility] Epithelial cells.squamous [# /area] in Urine sediment by Automated countOrdered By: Manisha Negron on 10-06-2024 Epithelial cells.squamous Auto (Urine sed) [#/Area] Epithelial cells.squamous [#/area] in Urine sediment by Automated count 0-2 [facility] Erythrocyte distribution wid th Auto (RBC) [Ratio]Ordered By: PROVIDER TEMP on 10-06-2024 Erythrocyte distribution width (RBC) [Ratio] Erythrocyte distribution width [Ratio] by Automated count 12.0-14.8 [facility] Erythrocytes [#/area] in Uri ne sediment by Automated countOrdered By: Manisha Negron on 10-06-2024 RBC Auto (Urine sed) [#/Area] Erythrocytes [#/area] in Urine sediment by Automated count 0-4 [facility] Globulin Calc (S) [Mass/Vol] Ordered By: PROVIDER TEMP on 10-06-2024 Globulin (S) [Mass/Vol] Serum globulin measurement by calculation (mass/volume) [facility] Glucose [Mass/volume] in Ser um or PlasmaOrdered By: PROVIDER TEMP on 10-06-2024 Glucose [Mass/Vol] Glucose [Mass/volume ] in Serum or Plasma 70-100 [facility] Comment on above: ADA recommended refe [...] [Mass/volume] in Urine by Test strip Normal [facility] Hematocrit Auto (Bld) [Volum e fraction]Ordered By: PROVIDER TEMP on 10-06-2024 Hematocrit (Bld) [Volume fraction] Hematocrit [Volume Fraction] of Blood by Automated count Low 38.8-50.0 [facility] Hemoglobin Test strip Ql (U) Ordered By: Manisha Negron on 10-06-2024 Hemoglobin Ql (U) Hemoglobin [Presence ] in Urine by Test strip High Negative [facility] Hemoglobin [Mass/volume] in BloodOrdered By: PROVIDER TEMP on 10-06-2024 Hemoglobin (Bld) [Mass/Vol] Hemoglobin [Mass/volume] in Blood Low 13.0-17.0 [facility] Hepatic Panelon 10-06-2024 Albumin [Mass/Vol] 3.6 g/dL Normal 3.5-5.7 [facility] Comment on above: Performed By: #### L IPASE, BMP, CBC, HEPATIC #### [facility] [address] [place] [address] [place] Albumin/Globulin [Mass ratio] 1.4 {ratio} Normal [facility] Comment on above: Performed By: #### L IPASE, BMP, CBC, HEPATIC #### [facility] [address] [place] [id number] [place] ALP [Catalytic activity/Vol] 63 U/L Normal 34-104 [facility] Comment on above: Performed By: #### L IPASE, BMP, CBC, HEPATIC #### [place] [address] [place] [address] [place] ALT [Catalytic activity/Vol] 7 U/L Normal 7-52 [facility] Comment on above: Performed By: #### L IPASE, BMP, CBC, HEPATIC #### [facility] [address] [place] [address] [place] AST [Catalytic activity/Vol] 8 U/L Low 13-39 [facility] Comment on above: Performed By: #### L IPASE, BMP, CBC, HEPATIC #### [place] [address] [place] [address] [place] Bilirubin [Mass/Vol] 0.6 mg/dL Normal 0.3-1.0 [facility] Comment on above: Performed By: #### L IPASE, BMP, CBC, HEPATIC #### [place] [address] Bilirubin,Indirect 0.5 mg/dL Normal [facility] Comment on above: Performed By: #### L IPASE, BMP, CBC, HEPATIC #### [place] [address] [place] [address] [place] Bilirubin.indirect [Mass/Vol] 0.10 mg/dL Normal 0.03-0.18 [facility] Comment on above: Performed By: #### L IPASE, BMP, CBC, HEPATIC #### [place] [address] [place] [address] [place] Globulin (S) [Mass/Vol] 2.5 g/dL Normal [facility] Comment on above: Performed By: #### L IPASE, BMP, CBC, HEPATIC #### [facility] [address] [place] [address] [place] Protein [Mass/Vol] 6.1 g/dL Low 6.4-8.9 [facility] Comment on above: Performed By: #### L IPASE, BMP, CBC, HEPATIC #### [place] [address] [place] [address] [place] Hyaline casts [#/area] in Ur ine sediment by Automated countOrdered By: Manisha Negron on 10-06-2024 Hyaline casts Auto (Urine sed) [#/Area] Hyaline casts [#/area] in Urine sediment by Automated count 0-8 [facility] Ketones Test strip Ql (U)Ord ered By: Manisha Negron on 10-06-2024 Ketones Ql (U) Ketones [Presence] i n Urine by Test strip Negative [facility] Leukocyte esterase [Presence ] in Urine by Test stripOrdered By: Manisha Negron on 10-06-2024 Leukocyte esterase Test strip Ql (U) Leukocyte esterase [Presence] in Urine by Test strip Negative [facility] Leukocytes [#/area] in Urine sediment by Automated countOrdered By: Manisha Negron on 10-06-2024 WBC Auto (Urine sed) [#/Area] Leukocytes [#/area] in Urine sediment by Automated count 0-4 [facility] Leukocytes [#/volume] correc mone for nucleated erythrocytes in Blood by Automated counOrdered By: PROVIDER TEMP on 10-06-2024 WBC corrected for nucl RBC Auto (Bld) [#/Vol] Leukocytes [#/volume] corrected for nucleated erythrocytes in Blood by Automated coun 4.1-10.5 [facility] Lipaseon 10-06-2024 Lipase [Catalytic activity/Vol] 11.0 U/L Normal 11.0-82.0 [facility] Comment on above: Result Comment: PERF ORMED BY: [place] [address] PATHOLOGIST WATER SERVER RAKEL LAZARO M.D. Performed By: #### L IPASE, BMP, CBC, HEPATIC #### [place] [address] [place] Lipase [Enzymatic activity/v olume] in Serum or PlasmaOrdered By: PROVIDER TEMP on 10-06-2024 Lipase [Catalytic activity/Vol] Lipase [Enzymatic activity/volume] in Serum or Plasma 11.0-82.0 [facility] Lymphocytes Auto (Bld) [#/Vo l]Ordered By: PROVIDER TEMP on 10-06-2024 Lymphocytes (Bld) [#/Vol] Lymphocytes [#/volume] in Blood by Automated count 1.00-4.8 [facility] Lymphocytes/100 WBC Auto (Bl d)Ordered By: PROVIDER TEMP on 10-06-2024 Lymphocytes/100 WBC (Bld) Lymphocytes/100 leukocytes in Blood by Automated count . [facility] MCH Auto (RBC) [Entitic mass ]Ordered By: PROVIDER TEMP on 10-06-2024 MCH (RBC) [Entitic mass] MCH [Entitic mass] by Automated count 27.5-35.2 [facility] MCHC Auto (RBC) [Mass/Vol]Or dered By: PROVIDER TEMP on 10-06-2024 MCHC (RBC) [Mass/Vol] MCHC [Mass/volume] by Automated count 32.5-35.6 [facility] MCV Auto (RBC) [Entitic vol] Ordered By: PROVIDER TEMP on 10-06-2024 MCV (RBC) [Entitic vol] MCV [Entitic volume] by Automated count 83.5-101 [facility] Monocyte distribution width [Entitic volume] in Blood by AutomatedOrdered By: PROVIDER TEMP on 10-06-2024 Monocyte distribution width Auto (Bld) [Entitic vol] Monocyte distribution width [Entitic volume] in Blood by Automated 0.00-20.00 [facility] Monocytes Auto (Bld) [#/Vol] Ordered By: PROVIDER TEMP on 10-06-2024 Monocytes (Bld) [#/Vol] Automated blood monocyte count 0.0-0.8 [facility] Monocytes/100 WBC Auto (Bld) Ordered By: PROVIDER TEMP on 10-06-2024 Monocytes/100 WBC (Bld) Automated monocyte % . [facility] Mucus [Presence] in Urine by AutomatedOrdered By: Manisha Negron on 10-06-2024 Mucus Auto Ql (U) Mucus [Presence] in Urine by Automated [facility] Neutrophils Auto (Bld) [#/Vo l]Ordered By: PROVIDER TEMP on 10-06-2024 Neutrophils (Bld) [#/Vol] Neutrophils [#/volume] in Blood by Automated count 1.8-7.7 [facility] Neutrophils/100 WBC Auto (Bl d)Ordered By: PROVIDER TEMP on 10-06-2024 Neutrophils/100 WBC (Bld) Automated neutrophil % . [facility] Nitrite Test strip Ql (U)Ord ered By: Manisha Negron on 10-06-2024 Nitrite Ql (U) Nitrite [Presence] i n Urine by Test strip Negative [facility] No Panel InformationOrdered By: PROVIDER TEMP on 10-06-2024 Estimated GFR (CKD-EPI) > 60.0 mL/Min [facility] Creatinine Clearance (Chem 91.52 [facility] Nucleated erythrocytes [Pres ence] in Blood by Automated countOrdered By: PROVIDER TEMP on 10-06-2024 Nucleated RBC Auto Ql (Bld) Nucleated erythrocytes [Presence] in Blood by Automated count 0-0.5 [facility] Platelet mean volume Auto (B ld) [Entitic vol]Ordered By: PROVIDER TEMP on 10-06-2024 Platelet mean volume (Bld) [Entitic vol] Platelet mean volume [Entitic volume] in Blood by Automated count 6.6-10.1 [facility] Platelets Auto (Bld) [#/Vol] Ordered By: PROVIDER TEMP on 10-06-2024 Platelets (Bld) [#/Vol] Platelets [#/volume] in Blood by Automated count 150-450 [facility] Potassium [Moles/volume] in Serum or PlasmaOrdered By: PROVIDER TEMP on 10-06-2024 Potassium [Moles/Vol] Potassium [Moles/v olume] in Serum or Plasma 3.5-5.1 [facility] Protein Test strip (U) [Mass /Vol]Ordered By: Manisha Negron on 10-06-2024 Protein (U) [Mass/Vol] Protein [Mass/vol ume] in Urine by Test strip Negative [facility] Protein [Mass/volume] in Ser um or PlasmaOrdered By: PROVIDER TEMP on 10-06-2024 Protein [Mass/Vol] Protein [Mass/volume ] in Serum or Plasma Low 6.4-8.9 [facility] RBC Auto (Bld) [#/Vol]Ordere d By: PROVIDER TEMP on 10-06-2024 RBC (Bld) [#/Vol] Erythrocytes [#/volu me] in Blood by Automated count 3.90-5.60 [facility] Serum or plasma albumin/glob ulin mass ratioOrdered By: PROVIDER TEMP on 10-06-2024 Albumin/Globulin [Mass ratio] Serum or plasma albumin/globulin mass ratio [facility] Serum or plasma anion gap de terminationOrdered By: PROVIDER TEMP on 10-06-2024 Anion gap [Moles/Vol] Serum or plasma an ion gap determination 6.0-15.0 [facility] Serum or plasma non-glucuron idated bilirubin measurement (mass/volume)Ordered By: PROVIDER TEMP on 10-06-2024 Bilirubin.indirect [Mass/Vol] Serum or plasma non-glucuronidated bilirubin measurement (mass/volume) [facility] Sodium [Moles/volume] in Ser um or PlasmaOrdered By: PROVIDER TEMP on 10-06-2024 Sodium [Moles/Vol] Sodium [Moles/volume ] in Serum or Plasma 136-145 [facility] Specific gravity Test strip (U) [Rel density]Ordered By: Manisha Negron on 10-06-2024 Specific gravity (U) [Rel density] Specific gravity of Urine by Test strip High 1.001-1.03 0 [facility] Urea nitrogen [Mass/volume] in Serum or PlasmaOrdered By: PROVIDER TEMP on 10-06-2024 Urea nitrogen [Mass/Vol] Urea nitrogen [Mass/volume] in Serum or Plasma 7-25 [facility] Urobilinogen Test strip (U) [Mass/Vol]Ordered By: Manisha Negron on 10-06-2024 Urobilinogen (U) [Mass/Vol] Urobilinogen [Mass/volume] in Urine by Test strip Normal [facility] WBC Auto (Bld) [#/Vol]Ordere d By: PROVIDER TEMP on 10-06-2024 WBC (Bld) [#/Vol] Leukocytes [#/volume ] in Blood by Automated count 4.1-10.5 [facility] pH Test strip (U)Ordered By: Manisha Negron on 10-06-2024 pH (U) pH of Urine by Test strip 5.0-9.0 [facility] B-Type Natriuretic Peptideon 09-20-2024 Natriuretic peptide B (Bld) [Mass/Vol] 43.0 pg/mL Normal 5-100 [facility] Comment on above: Result Comment: PERF ORMED BY: [place] [address] PATHOLOGIST WATER SERVER RAKEL LAZARO M.D. Performed By: #### H S TROP #### [address] Basic Metabolic Panelon 04-0 Anion gap [Moles/Vol] 11.2 mmol/L Normal 6.0-15.0 [facility] Comment on above: Performed By: #### C BC, BNP, BMP, HS TROP #### [address] Calcium [Mass/Vol] 9.3 mg/dL Normal 8.6-10.3 [facility] Comment on above: Performed By: #### C BC, BNP, BMP, HS TROP #### [address] Chloride [Moles/Vol] 100 mmol/L Normal 98-107 [facility] Comment on above: Performed By: #### C BC, BNP, BMP, HS TROP #### [address] CO2 [Moles/Vol] 26.0 mmol/L Normal 21.0-31.0 [facility] Comment on above: Performed By: #### C BC, BNP, BMP, HS TROP #### [address] Creatinine [Mass/Vol] 0.91 mg/dL Normal 0.70-1.30 [facility] Comment on above: Performed By: #### C BC, BNP, BMP, HS TROP #### [address] Creatinine Clr Calc Pharmacy 82.47 Normal [facility] Comment on above: Result Comment: PERF ORMED BY: [place] [address] PATHOLOGIST WATER SERVER RAKEL LAZAOR M.D. Performed By: #### C BC, BNP, BMP, HS TROP #### [place] [address] [place] [address] [place] GFR/1.73 sq M.predicted MDRD (S/P/Bld) [Vol rate/Area] mL/min/{1.73_m2} Normal [facility] Comment on above: Performed By: #### C BC, BNP, BMP, HS TROP #### [address] Glucose [Mass/Vol] 100 mg/dL Normal 70-100 [facility] Comment on above: Result Comment: [facility] Glucose Reference Range is dependent on time and content of last meal. Glucose of more than 200 mg/dL in a nonstressed, ambulatory subject supports the diagnosis of Diabetes Mellitus. ADA recommended reference range Performed By: #### C BC, BNP, BMP, HS TROP #### [address] Potassium [Moles/Vol] 4.2 mmol/L Normal 3.5-5.1 [facility] Comment on above: Performed By: #### C BC, BNP, BMP, HS TROP #### [address] Sodium [Moles/Vol] 133 mmol/L Low 136-145 [facility] Comment on above: Performed By: #### C BC, BNP, BMP, HS TROP #### [place] [address] [place] Urea nitrogen [Mass/Vol] 18 mg/dL Normal 7-25 [facility] Comment on above: Performed By: #### C BC, BNP, BMP, HS TROP #### [place] [address] [place] Basophils Auto (Bld) [#/Vol] Ordered By: Daisy Paul on 09-20-2024 Basophils (Bld) [#/Vol] Automated basophil count 0.0-0.2 [facility] Basophils/100 WBC Auto (Bld) Ordered By: Daisy Paul on 09-20-2024 Basophils/100 WBC (Bld) Automated basophil % . [facility] BioFire Not Detectedon 09-20 BioFire Not Detected Not detected Normal Not Detecte [facility] Comment on above: Result Comment: This is a duplicate RP2.1 COVID (PCR) result to be used for statistical tracking purpose only. PERFORMED BY: [place] [address] PATHOLOGIST WATER SERVER RAKEL LAZARO M.D. Performed By: #### H S TROP #### [address] COVID-19 Detected/Not Detect edOrdered By: Daisy Paul on 09-20-2024 SARS-CoV-2 (COVID-19) RNA JER+non-probe Ql (Nph) Not detected Not Detecte [facility] Comment on above: This is a duplicate RP2.1 COVID (PCR) result to be used for statistical tracking purpose only. Calcium [Mass/volume] in Ser um or PlasmaOrdered By: Daisy Paul on 09-20-2024 Calcium [Mass/Vol] Calcium [Mass/volume ] in Serum or Plasma 8.6-10.3 [facility] Carbon dioxide, total [Moles /volume] in Serum or PlasmaOrdered By: Daisy Paul on 09-20-2024 CO2 [Moles/Vol] Carbon dioxide, tota l [Moles/volume] in Serum or Plasma 21.0-31.0 [facility] Chloride [Moles/volume] in [place] r[place] or PlasmaOrdered By: Daisy Paul on 09-20-2024 Chloride [Moles/Vol] Chloride [Moles/vol ume] in Serum or Plasma 98-107 [facility] Complete Blood Count Auto Di ffon 09-20-2024 Basophils (Bld) [#/Vol] 0.0 10*3/uL Normal 0.0-0.2 [facility] Comment on above: Result Comment: PERF ORMED BY: [address] [address] PATHOLOGIST WATER SERVER MOHAMED M EL-FAKHARANY M.D. Performed By: #### C BC, BNP, BMP, HS TROP #### [address] Basophils/100 WBC (Bld) 0.5 % Normal . [facility] Comment on above: Performed By: #### C BC, BNP, BMP, HS TROP #### [address] Eosinophils (Bld) [#/Vol] 0.0 10*3/uL Normal 0.0-0.45 [facility] Comment on above: Performed By: #### C BC, BNP, BMP, HS TROP #### [address] Eosinophils/100 WBC (Bld) 0.1 % Normal . [facility] Comment on above: Performed By: #### C BC, BNP, BMP, HS TROP #### [address] Erythrocyte distribution width (RBC) [Ratio] 13.9 % Normal 12.0-14.8 [facility] Comment on above: Performed By: #### C BC, BNP, BMP, HS TROP #### [address] Hematocrit (Bld) [Volume fraction] 41.1 % Normal 38.8-50.0 [facility] Comment on above: Performed By: #### C BC, BNP, BMP, HS TROP #### [address] Hemoglobin (Bld) [Mass/Vol] 14.1 g/dL Normal 13.0-17.0 [facility] Comment on above: Performed By: #### C BC, BNP, BMP, HS TROP #### [address] Lymphocytes (Bld) [#/Vol] 1.1 10*3/uL Normal 1.00-4.8 [facility] Comment on above: Performed By: #### C BC, BNP, BMP, HS TROP #### [place] [address] [place] Lymphocytes/100 WBC (Bld) 11.5 % Normal . [facility] Comment on above: Performed By: #### C BC, BNP, BMP, HS TROP #### [address] MCH (RBC) [Entitic mass] 32.1 pg Normal 27.5-35.2 [facility] Comment on above: Performed By: #### C BC, BNP, BMP, HS TROP #### [address] MCV (RBC) [Entitic vol] 93.6 fL Normal 83.5-101 [facility] Comment on above: Performed By: #### C BC, BNP, BMP, HS TROP #### [address] Mean Corpuscular HGB Conc 34.3 g/dL Normal 32.5-35.6 [facility] Comment on above: Performed By: #### C BC, BNP, BMP, HS TROP #### [address] Monocytes (Bld) [#/Vol] 0.5 10*3/uL Normal 0.0-0.8 [facility] Comment on above: Performed By: #### C BC, BNP, BMP, HS TROP #### [address] Monocytes/100 WBC (Bld) 23.57 % High 0.00-20.00 [facility] Comment on above: Result Comment: For adults in ED, MDW > 20.0 may be associated with a higher risk of sepsis during the first 12 hrs of hospital admission Performed By: #### C BC, BNP, BMP, HS TROP #### [place] [address] [place] Monocytes/100 WBC (Bld) 5.4 % Normal . [facility] Comment on above: Performed By: #### C BC, BNP, BMP, HS TROP #### [address] Neutrophils (Bld) [#/Vol] 8.1 10*3/uL High 1.8-7.7 [facility] Comment on above: Performed By: #### C BC, BNP, BMP, HS TROP #### [place] [address] [place] Neutrophils/100 WBC (Bld) 82.5 % Normal . [facility] Comment on above: Performed By: #### C BC, BNP, BMP, HS TROP #### [facility] [address] NRBC% 0.1 /100{WBC} Normal 0-0.5 [facility] Comment on above: Performed By: #### C BC, BNP, BMP, HS TROP #### [address] Platelet mean volume (Bld) [Entitic vol] 8.9 fL Normal 6.6-10.1 [facility] Comment on above: Performed By: #### C BC, BNP, BMP, HS TROP #### [place] [address] [place] Platelets (Bld) [#/Vol] 215 10*3/uL Normal 150-450 [facility] Comment on above: Performed By: #### C BC, BNP, BMP, HS TROP #### [place] [address] [place] RBC (Bld) [#/Vol] 4.39 10*6/uL Normal 3.90-5.60 [facility] Comment on above: Performed By: #### C BC, BNP, BMP, HS TROP #### [place] [address] [place] WBC (Bld) [#/Vol] 9.8 10*3/uL Normal 4.1-10.5 [facility] Comment on above: Performed By: #### C BC, BNP, BMP, HS TROP #### [place] [address] [place] Creatinine [Mass/volume] in Serum or PlasmaOrdered By: Daisy Paul on 09-20-2024 Creatinine [Mass/Vol] Creatinine [Mass/v olume] in Serum or Plasma 0.70-1.30 [facility] ECG 12 lead ECGon 09-20-2024 ECG 12 lead ECG [facility] [address] [address] Electrocardiograph Report Signed Patient: Shantel Melendez MR#: [id number] : 1960 Acct:[id number] Age/Sex: 63 / M ADM Date: 09/20/24 Loc: ER Room: Type: [facility] ER Attending Dr: Ordering Provider: Daisy [...] wave abnormality Confirmed by Daisy Paul MD ([id number]) on 09/20/2024 7:46:03 PM Referred By: Electronically Signed By: Daisy Paul MD Transcribed By: MUS Signed By Daisy Paul MD 11/09 Normal [facility] Eosinophils Auto (Bld) [#/Vo l]Ordered By: Daisy Paul on 09-20-2024 Eosinophils (Bld) [#/Vol] Automated eosinophil count 0.0-0.45 [facility] Eosinophils/100 WBC Auto (Bl d)Ordered By: Daisy Paul on 09-20-2024 Eosinophils/100 WBC (Bld) Automated eosinophil % . [facility] Erythrocyte distribution wid th Auto (RBC) [Ratio]Ordered By: Daisy Paul on 09-20-2024 Erythrocyte distribution width (RBC) [Ratio] Erythrocyte distribution width [Ratio] by Automated count 12.0-14.8 [facility] Glucose [Mass/volume] in Ser um or PlasmaOrdered By: Daisy Paul on 09-20-2024 Glucose [Mass/Vol] Glucose [Mass/volume ] in Serum or Plasma 70-100 [facility] Comment on above: ADA recommended refe rence rangeRandom Glucose Reference Range is dependent on time and content of last meal. Glucose of more than 200 mg/dL in a nonstressed, ambulatory subject supports the diagnosis of Diabetes Mellitus. Hematocrit Auto (Bld) [Volum e fraction]Ordered By: Daisy Paul on 09-20-2024 Hematocrit (Bld) [Volume fraction] Hematocrit [Volume Fraction] of Blood by Automated count 38.8-50.0 [facility] Hemoglobin [Mass/volume] in BloodOrdered By: Daisy Paul on 09-20-2024 Hemoglobin (Bld) [Mass/Vol] Hemoglobin [Mass/volume] in Blood 13.0-17.0 [facility] Leukocytes [#/volume] correc mone for nucleated erythrocytes in Blood by Automated counOrdered By: Daisy Paul on 09-20-2024 WBC corrected for nucl RBC Auto (Bld) [#/Vol] Leukocytes [#/volume] corrected for nucleated erythrocytes in Blood by Automated coun 4.1-10.5 [facility] Lymphocytes Auto (Bld) [#/Vo l]Ordered By: Daisy Paul on 09-20-2024 Lymphocytes (Bld) [#/Vol] Lymphocytes [#/volume] in Blood by Automated count 1.00-4.8 [facility] Lymphocytes/100 WBC Auto (Bl d)Ordered By: Daisy Paul on 09-20-2024 Lymphocytes/100 WBC (Bld) Lymphocytes/100 leukocytes in Blood by Automated count . [facility] MCH Auto (RBC) [Entitic mass ]Ordered By: Daisy Paul on 09-20-2024 MCH (RBC) [Entitic mass] MCH [Entitic mass] by Automated count 27.5-35.2 [facility] MCHC Auto (RBC) [Mass/Vol]Or dered By: Daisy Paul on 09-20-2024 MCHC (RBC) [Mass/Vol] MCHC [Mass/volume] by Automated count 32.5-35.6 [facility] MCV Auto (RBC) [Entitic vol] Ordered By: Daisy Paul on 09-20-2024 MCV (RBC) [Entitic vol] MCV [Entitic volume] by Automated count 83.5-101 [facility] Monocyte distribution width [Entitic volume] in Blood by AutomatedOrdered By: Daisy Paul on 09-20-2024 Monocyte distribution width Auto (Bld) [Entitic vol] Monocyte distribution width [Entitic volume] in Blood by Automated High 0.00-20.00 [facility] Comment on above: For adults in ED, MD W > 20.0 may be associated with a higher risk of sepsis during the first 12 hrs of hospital admission Monocytes Auto (Bld) [#/Vol] Ordered By: Daisy Paul on 09-20-2024 Monocytes (Bld) [#/Vol] Automated blood monocyte count 0.0-0.8 [facility] Monocytes/100 WBC Auto (Bld) Ordered By: Daisy Paul on 09-20-2024 Monocytes/100 WBC (Bld) Automated monocyte % . [facility] Natriuretic peptide B [Mass/ Vol]Ordered By: Daisy Paul on 09-20-2024 Natriuretic peptide B (Bld) [Mass/Vol] BNP ser/plas 5-100 [facility] Neutrophils Auto (Bld) [#/Vo l]Ordered By: Daisy Paul on 09-20-2024 Neutrophils (Bld) [#/Vol] Neutrophils [#/volume] in Blood by Automated count High 1.8-7.7 [facility] Neutrophils/100 WBC Auto (Bl d)Ordered By: Daisy Paul on 09-20-2024 Neutrophils/100 WBC (Bld) Automated neutrophil % . [facility] No Panel InformationOrdered By: Daisy Paul on 09-20-2024 Estimated GFR (CKD-EPI) > 60.0 mL/Min [facility] Creatinine Clearance (Chem 82.47 [facility] Nucleated erythrocytes [Pres ence] in Blood by Automated countOrdered By: Daisy Paul on 09-20-2024 Nucleated RBC Auto Ql (Bld) Nucleated erythrocytes [Presence] in Blood by Automated count 0-0.5 [facility] Platelet mean volume Auto (B ld) [Entitic vol]Ordered By: Daisy Paul on 09-20-2024 Platelet mean volume (Bld) [Entitic vol] Platelet mean volume [Entitic volume] in Blood by Automated count 6.6-10.1 [facility] Platelets Auto (Bld) [#/Vol] Ordered By: Daisy Paul on 09-20-2024 Platelets (Bld) [#/Vol] Platelets [#/volume] in Blood by Automated count 150-450 [facility] Potassium [Moles/volume] in Serum or PlasmaOrdered By: Daisy Paul on 09-20-2024 Potassium [Moles/Vol] Potassium [Moles/v olume] in Serum or Plasma 3.5-5.1 [facility] RBC Auto (Bld) [#/Vol]Ordere d By: Daisy Paul on 09-20-2024 RBC (Bld) [#/Vol] Erythrocytes [#/volu me] in Blood by Automated count 3.90-5.60 [facility] Respiratory (Upper) Panel, P CRon 09-20-2024 [...] A H3 Blank Space ---- PERFORMED BY: [facility] [place] [address] PATHOLOGIST WATER SERVER RAKEL LAZARO M.D. Normal [facility] Comment on above: Performed By: #### H S TROP #### [address] Respiratory pathogens DNA an d RNA panel - Nasopharynx by JER with non-probe detectionOrdered By: Daisy Paul on 09-20-2024 Respiratory pathogens DNA and RNA panel JER+non-probe (Nph) Respiratory pathogens DNA and RNA panel - Nasopharynx by JER with non-probe detection [facility] Serum or plasma anion gap de terminationOrdered By: Daisy Paul on 09-20-2024 Anion gap [Moles/Vol] Serum or plasma an ion gap determination 6.0-15.0 [facility] Sodium [Moles/volume] in Ser um or PlasmaOrdered By: Daisy Paul on 09-20-2024 Sodium [Moles/Vol] Sodium [Moles/volume ] in Serum or Plasma Low 136-145 [facility] Troponin I High Sensitivityo n 09-20-2024 Troponin I High Sensitivity 8 Normal 0-20 [facility] Comment on above: Result Comment: The Troponin units of report have been changed to meet the Chest Pain Accreditation requirement, element EC5.M1l2. Troponin units are changed from pg/ml to ng/L. Also, the decimal is removed and results are in whole numbers. PERFORMED BY: [place] [address] PATHOLOGIST WATER SERVER RAKEL LAZARO M.D. Performed By: #### H S TROP #### [address] Troponin I High Sensitivity 8 Normal 0-20 [facility] Comment on above: Result Comment: The Troponin units of report have been changed to meet the Chest Pain Accreditation requirement, element EC5.M1l2. Troponin units are changed from pg/ml to ng/L. Also, the decimal is removed and results are in whole numbers. PERFORMED BY: [place] [address] PATHOLOGIST WATER SERVER RAKEL LAZARO M.D. Performed By: #### C BC, BNP, BMP, HS TROP #### [place] [address] Troponin I.cardiac [Mass/vol ume] in Serum or Plasma by Detection limit <= 0.01 ng/Ordered By: Daisy Paul on 09-20-2024 Troponin I.cardiac DL <= 0.01 ng/mL [Mass/Vol] Troponin I.cardiac [Mass/volume] in Serum or Plasma by Detection limit <= 0.01 ng/ 0-20 [facility] Comment on above: The Troponin units o f report have been changed to meet the Chest Pain Accreditation requirement, element EC5.M1l2. Troponin units are changed from pg/ml to ng/L. Also, the decimal is removed and results are in whole numbers. Urea nitrogen [Mass/volume] in Serum or PlasmaOrdered By: Daisy Paul on 09-20-2024 Urea nitrogen [Mass/Vol] Urea nitrogen [Mass/volume] in Serum or Plasma 7 [facility] WBC Auto (Bld) [#/Vol]Ordere d By: Daisy Paul on 09-20-2024 WBC (Bld) [#/Vol] Leukocytes [#/volume ] in Blood by Automated count 4.1-10.5 [facility] X-ray reportOrdered By: Rex Hutchins on 09-20-2024 Study report [place] [address] XRay Report Signed Patient: Shantel Melendez MR#: [id number] : 1960 Acct:[id number] Age/Sex: 63 / M ADM Date: 5 Loc: ER Room: Type: [facility] ER Attending Dr: Copies [...] PM Dictation Location: RADIO-PC-29 Transcribed By: MARISA 09/20/241246 Dictated By: Gee Hutchins MD 09/20/241244 Signed By: 09/20/24 124 [facility] Work Phone: XR chest 2V*on 09-20-2024 XR chest 2V* [facility] [place] [address] [place] [address] XRay Report Signed Patient: Shantel Melendez MR#: [id number] : 1960 Acct:[id number] Age/Sex: 63 / M ADM Date: 09/20/24 Loc: ER Room: Type: [facility] ER Attending Dr: Copies [...] PM Dictation Location: RADIO-PC-29 Transcribed By: MARISA 09/20/241246 Dictated By: Gee Hutchins MD 09/20/241244 Signed By: 09/20/241246 Normal [facility] US ankle/arm indiceson 09-16 US ankle/arm indices [facility] [address] [place], [place] [id number] Ultrasound Report Signed Patient: Shantel Melendez MR#: [id number] : 1960 Acct:[id number] Age/Sex: 63 / M ADM Date: 09/11/24 Loc: [facility] Room: Type: [facility] CLI Attending Dr: Ruddy Harvey MD Ordering [...] Filipe Hess M.D.09/16/2024 2:46 PM Dictation Location: [place] [address] Tech: Agueda Helm Transcribed By: MARISA 09/16/24 1446 Dictated By: Filipe Hess MD 09/16/24 1445 Signed By: 09/16/24 1446 Normal [facility] X-ray reportOrdered By: Yehuda Pozo on 06-24-2024 Study report [place] [address] XRay Report Signed Patient: Shantel Melendez MR#: [id number] : 1960 Acct:[id number] Age/Sex: 63 / M ADM Date: 2 5 Loc: XD Room: Type: [facility] CLI Attending Dr: Solomon [...] Pozo Jr, DO 06/24/242005 Signed By: 06/24/242007 [facility] XR cervical spine LAT/FLX/EX Ivan 06-24-2024 XR cervical spine LAT/FLX/EXT [place] [address] XRay Report Signed Patient: Shantel Melendez MR#: [id number] : 1960 Acct:[id number] Age/Sex: 63 / M ADM Date: 06/24/24 Loc: XD Room: Type: [facility] Attending Dr: Solomon Narayanan PA-C Copies to: [...] DO 06/24/242005 Signed By: 06/24/242007 Normal [facility] Basic metabolic 2000 panelon 04-10-2024 Anion gap [Moles/Vol] 14 mmol/L 10 - 2 0 mmol/L [facility] Calcium [Mass/Vol] 9 mg/dL 8.6 - 10. 6 mg/dL [facility] Chloride [Moles/Vol] 103 mmol/L 98 - 10 7 mmol/L [facility] CO2 [Moles/Vol] 26 mmol/L 21 - 32 mmol/L [facility] Creatinine [Mass/Vol] 0.86 mg/dL 0.50 - 1.30 mg/dL [facility] eGFR - PINF [facility] Comment on above: Calculations of sandra mated GFR are performed using the 2020 CKD-EPI Study Refit equation without the race variable for the IDMS-Traceable creatinine methods. https://jasn.asnjournals.org/content/early/ASN.54789 72956 Glucose [Mass/Vol] 159 mg/dL High 74 - 99 mg/dL [facility] Interpretation and review of laboratory results Abnormal [facility] Potassium [Moles/Vol] 4.5 mmol/L 3.5 - 5.3 mmol/L [facility] Sodium [Moles/Vol] 138 mmol/L 136 - 145 mmol/L [facility] Urea nitrogen [Mass/Vol] 14 mg/dL 6 - 23 mg/dL [facility] Anion gap [Moles/Vol] 14 mmol/L Normal 10-20 [facility] Comment on above: Performed By: #### 5 7021-8 #### TITUS Mercaod ([id number]) [facility] ([facility]) [address] [place] [address] Calcium [Mass/Vol] 9.0 mg/dL Normal 8.6-10.6 [facility] Comment on above: Performed By: #### 5 7021-8 #### TITUS Mercado ([id number]) [facility] ([facility]) [address] [place] [address] Chloride [Moles/Vol] 103 mmol/L Normal 98-107 [facility] Comment on above: Performed By: #### 5 7021-8 #### TITUS Mercado ([id number]) [facility] ([facility]) [address] [place] [address] CO2 [Moles/Vol] 26 mmol/L Normal 21-32 [facility] Comment on above: Performed By: #### 5 7021-8 #### TITUS Mercado ([id number]) [facility] ([facility]) [address] [place] [address] Creatinine [Mass/Vol] 0.86 mg/dL Normal 0.50-1.30 [facility] Comment on above: Performed By: #### 5 7021-8 #### TITUS Mercado ([id number]) [facility] ([facility]) [address] [place] [address] GFR/1.73 sq M.predicted MDRD (S/P/Bld) [Vol rate/Area] mL/min/{1.73_m2} Normal >60 [facility] Comment on above: Result Comment: Calc ulations of estimated GFR are performed using the 2020 CKD-EPI Study Refit equation without the race variable for the IDMS-Traceable creatinine methods. https://jasn.asnjournals.org/content/early//ASN.69445 81825 Performed By: #### 5 7021-8 #### TITUS Mercado ([id number]) [facility] ([facility]) [address] [place] [address] Glucose [Mass/Vol] 159 mg/dL High 74-99 [facility] Comment on above: Performed By: #### 5 7021-8 #### TITUS Mercado ([id number]) [facility] ([facility]) [address] [place] [address] Potassium [Moles/Vol] 4.5 mmol/L Normal 3.5-5.3 [facility] Comment on above: Performed By: #### 5 7021-8 #### TITUS Mercado ([id number]) [facility] ([facility]) [address] [place] [address] Sodium [Moles/Vol] 138 mmol/L Normal 136-145 [facility] Comment on above: Performed By: #### 5 7021-8 #### TITUS Mercado ([id number]) [facility] ([facility]) [address] [place] [address] Urea nitrogen [Mass/Vol] 14 mg/dL Normal 6-23 [facility] Comment on above: Performed By: #### 5 7021-8 #### TITUS Mercado ([id number]) [facility] ([facility]) [address] [place] [address] 31616 CBC panel Auto (Bld)on 04-10 Erythrocyte distribution width (RBC) [Ratio] 13.3 % 11.5 - 14.5 % [facility] Hematocrit (Bld) [Volume fraction] 38 % Low 41.0 - 52.0 % [facility] Hemoglobin (Bld) [Mass/Vol] 12.9 g/dL Low 13.5 - 17.5 g/dL [facility] Interpretation and review of laboratory results Abnormal [facility] MCH (RBC) [Entitic mass] 31.9 pg 26.0 - 34.0 pg [facility] MCHC (RBC) [Mass/Vol] 33.9 g/dL 32.0 - 36.0 g/dL [facility] MCV (RBC) [Entitic vol] 94 fL 80 - 100 fL [facility] Nucleated RBC/100 WBC (Bld) [Ratio] 0 % [facility] Platelets (Bld) [#/Vol] 221 10*3/uL [facility] RBC (Bld) [#/Vol] 4.05 10*6/uL Low [facility] WBC (Bld) [#/Vol] 9.6 10*3/uL [facility] Erythrocyte distribution width (RBC) [Ratio] 13.3 % Normal 11.5-14.5 [facility] Comment on above: Performed By: #### 5 7021-8 #### TITUS Mercado ([id number]) [facility] ([facility]) [address] [place] [address] Hematocrit (Bld) [Volume fraction] 38.0 % Low 41.0-52.0 [facility] Comment on above: Performed By: #### 5 7021-8 #### TITUS Mercado ([id number]) [facility] ([facility]) [address] [place] [address]5527 Hemoglobin (Bld) [Mass/Vol] 12.9 g/dL Low 13.5-17.5 [facility] Comment on above: Performed By: #### 5 7021-8 #### TITUS Mercado ([id number]) [facility] ([facility]) [address] [place] [address]242 MCH (RBC) [Entitic mass] 31.9 pg Normal 26.0-34.0 [facility] Comment on above: Performed By: #### 5 7021-8 #### TITUS Mercado ([id number]) [facility] ([facility]) [address] [place] [address] 11389 MCHC (RBC) [Mass/Vol] 33.9 g/dL Normal 32.0-36.0 [facility] Comment on above: Performed By: #### 5 7021-8 #### TITUS Mercado ([id number]) [facility] ([facility]) [address] [place] [address] 98480 MCV (RBC) [Entitic vol] 94 fL Normal 80-100 [facility] Comment on above: Performed By: #### 5 7021-8 #### TITUS Mercado ([id number]) [facility] ([facility]) [address] [place] [address] 29436 Nucleated RBC/100 WBC (Bld) [Ratio] 0.0 /100 WBCs Normal 0.0-0.0 [facility] Comment on above: Performed By: #### 5 7021-8 #### TITUS ELENAER L ([id number]) [facility] ([facility]) [address] [place] [address] Platelets (Bld) [#/Vol] 221 x10*3/uL Normal 150-450 [facility] Comment on above: Performed By: #### 5 7021-8 #### TITUS SCHMOTZER L ([id number]) [facility] ([facility]) [address] [place] [address] RBC (Bld) [#/Vol] 4.05 x10*6/uL Low 4.50-5.90 [facility] Comment on above: Performed By: #### 5 7021-8 #### TITUS SCHMOTZER L ([id number]) [facility] ([facility]) [address] [place] [address] WBC (Bld) [#/Vol] 9.6 x10*3/uL Normal 4.4-11.3 [facility] Comment on above: Performed By: #### 5 7021-8 #### TITUS PAYANMOTZER L ([id number]) [facility] ([facility]) [address] [place] [address] XR CERVICAL SPINE 2-3 VIEWSo 04-10-2024 XR CERVICAL SPINE 2-3 VIEWS Interpreted By: Shubham Eubanks, STUDY: Cervical spine dated 04/10/2024. INDICATION: Signs/Symptoms:Post surgery COMPARISON: None. ACCESSION NUMBER(S): [id number] ORDERING CLINICIAN: DORETHA HARRIS TECHNIQUE: Two views [...] Shubham Eubanks 04/10/2024 10:05 AM Dictation workstation: [id number] [facility] Comment on above: Order Comment: Micheal alvarado have patient upright XR Cervical spine 2 or 3 Vie wson 04-10-2024 Surgical and degener ative change as above without osseous injury evident. MACRO: None Signed by: Shubham Eubanks 04/10/2024 10:05 AM Dictation workstation: [id number] Interpreted By: Shubham Curran, STUDY: Cervical spine dated 04/10/2024. INDICATION: Signs/Symptoms:Post surgery COMPARISON: None. ACCESSION NUMBER(S): [id number] ORDERING CLINICIAN: DORETHA HARRIS TECHNIQUE: Two views [...] INDICATION: Signs/Symptoms:Post surgery COMPARISON: None. ACCESSION NUMBER(S): [id number] ORDERING CLINICIAN: DORETHA HARRIS TECHNIQUE: Two views [...] Shubham Eubanks 04/10/2024 10:05 AM Dictation workstation: [id number] [facility] Work Phone: Radiology Study observation (narrative) [facility] Work Phone: XR Cervical spine 2 or 3 Vie wsOrdered By: Shubham Eubanks on 04-10-2024 [facility] Work Phone: Blood type and Indirect anti body screen panel (Bld)on 04-09-2024 ABO group Nom (Bld) A [facility] Blood group antibody screen Ql Negative [facility] D Ag Ql (Bld) Positive [facility] ABO group Nom (Bld) A Normal [facility] Comment on above: Order Comment: As ne eded for scheduled for aortic, liver, cardiac, or thoracic surgery OR hgb<7.5mg/dl and no active type and screen. Performed By: #### 5 7021-8 #### TITUS Mercado ([id number]) [facility] ([facility]) [address] [place] [address] Blood group antibody screen Ql Negative [facility] Comment on above: Order Comment: As ne eded for scheduled for aortic, liver, cardiac, or thoracic surgery OR hgb<7.5mg/dl and no active type and screen. Performed By: #### 5 7021-8 #### TITUS Mercado ([id number]) [facility] ([facility]) [address] [place], [place] [address] D Ag Ql (Bld) Positive [facility] Comment on above: Order Comment: As ne eded for scheduled for aortic, liver, cardiac, or thoracic surgery OR hgb<7.5mg/dl and no active type and screen. Performed By: #### 5 7021-8 #### TITUS Mercado ([id number]) [facility] ([facility]) [address] [place] [address] FL FLUORO IMAGES NO CHARGEon 04-09-2024 FL FLUORO IMAGES NO CHARGE These images are not reportable by radiology and will not be interpreted by Radiologists. Normal [facility] Gas and Carbon monoxide and Electrolytes panel (BldA)on 04-09-2024 Anion gap 4 (BldA) [Moles/Vol] 8 Low [facility] Base excess Calc (Bld) [Moles/Vol] -1.9000 mmol/L -2.0 - 3.0 mmol/L [facility] Calcium.ionized (BldA) [Moles/Vol] 1.24 mmol/L 1.10 - 1.33 mmol/L [facility] Chloride (BldA) [Moles/Vol] 104 mmol/L 98 - 107 mmol/L [facility] CO2 (Bld) [Partial pressure] 46 mm[Hg] High [facility] Glucose [Mass/Vol] 132 mg/dL High 74 - 99 mg/dL [facility] HCO3 (Bld) [Moles/Vol] 24.3 mmol/L 22.0 - 26.0 mmol/L [facility] Hematocrit Est (Bld) [Volume fraction] 39 % Low 41.0 - 52.0 % [facility] Hemoglobin (Bld) [Mass/Vol] 12.9 g/dL Low 13.5 - 17.5 g/dL [facility] Inhaled oxygen concentration 44 % [facility] Interpretation and review of laboratory results Abnormal [facility] Lactate (BldA) [Moles/Vol] 0.7 mmol/L 0.4 - 2.0 mmol/L [facility] Oxygen (Bld) [Partial pressure] 156 mm[Hg] High [facility] Oxyhemoglobin (BldA) [Mass fraction] 95 % 94.0 - 98.0 % [facility] pH (Bld) 7.33 [pH] Low 7.38 - 7.42 pH [facility] Potassium (BldA) [Moles/Vol] 4.5 mmol/L 3.5 - 5.3 mmol/L [facility] Sodium (BldA) [Moles/Vol] 132 mmol/L Low 136 - 145 mmol/L [facility] Anion gap 4 (BldA) [Moles/Vol] 8 mmo/L Low 10-25 [facility] Comment on above: Performed By: #### 5 7021-8 #### TITUS Mercado ([id number]) [facility] ([facility]) [address] [place] [address] Base excess Calc (Bld) [Moles/Vol] -1.9000 mmol/L Normal -2.0-3.0 [facility] Comment on above: Performed By: #### 5 7021-8 #### TITUS Mercado ([id number]) [facility] ([facility]) [address] [place] [address]93 Calcium.ionized (BldA) [Moles/Vol] 1.24 mmol/L Normal 1.10-1.33 [facility] Comment on above: Performed By: #### 5 7021-8 #### TITUS Mercado ([id number]) [facility] ([facility]) [address] [place] [address] 30093 Chloride (BldA) [Moles/Vol] 104 mmol/L Normal 98-107 [facility] Comment on above: Performed By: #### 5 7021-8 #### TITUS Mercado ([id number]) [facility] ([facility]) [address] [place] [address] 98465 CO2 (Bld) [Partial pressure] 46 mm Hg High 38-42 [facility] Comment on above: Performed By: #### 5 7021-8 #### TITUS Mercado ([id number]) [facility] ([facility]) [address] [place] [address] 82968 Glucose [Mass/Vol] 132 mg/dL High 74-99 [facility] Comment on above: Performed By: #### 5 7021-8 #### TITUS Mercado ([id number]) [facility] ([facility]) [address] [place] [address] 24933 HCO3 (Bld) [Moles/Vol] 24.3 mmol/L Normal 22.0-26.0 [facility] Comment on above: Performed By: #### 5 7021-8 #### TITUS Mercado ([id number]) [facility] ([facility]) [address] [place] [address] 63763 Hematocrit Est (Bld) [Volume fraction] 39.0 % Low 41.0-52.0 [facility] Comment on above: Performed By: #### 5 7021-8 #### TITUS Mercado ([id number]) [facility] ([facility]) [address] [place] [address] 42185 Hemoglobin (Bld) [Mass/Vol] 12.9 g/dL Low 13.5-17.5 [facility] Comment on above: Performed By: #### 5 7021-8 #### TITUS Mercado ([id number]) [facility] ([facility]) [address] [place] [address] 93117 Inhaled oxygen concentration 44 % Normal [facility] Comment on above: Performed By: #### 5 7021-8 #### TITUS Mercado ([id number]) [facility] ([facility]) [address] [place] [address] 67871 Lactate (BldA) [Moles/Vol] 0.7 mmol/L Normal 0.4-2.0 [facility] Comment on above: Performed By: #### 5 7021-8 #### TITUS Mercado ([id number]) [facility] ([facility]) [address] [place] [address] 79622 Oxygen (Bld) [Partial pressure] 156 mm Hg High 85-95 [facility] Comment on above: Performed By: #### 5 7021-8 #### TITUS Mercado ([id number]) [facility] ([facility]) [address] [place] [address] 27162 Oxyhemoglobin (BldA) [Mass fraction] 95.0 % Normal 94.0-98.0 [facility] Comment on above: Performed By: #### 5 7021-8 #### TITUS Mercado ([id number]) [facility] ([facility]) [address] [place] [address] 84196 pH (Bld) 7.33 [pH] Low 7.38-7.42 [facility] Comment on above: Performed By: #### 5 7021-8 #### TITUS Mercado ([id number]) [facility] ([facility]) [address] [place] [address] 96720 Potassium (BldA) [Moles/Vol] 4.5 mmol/L Normal 3.5-5.3 [facility] Comment on above: Performed By: #### 5 7021-8 #### TITUS Mercado ([id number]) [facility] ([facility]) [address] [place] [address] Sodium (BldA) [Moles/Vol] 132 mmol/L Low 136-145 [facility] Comment on above: Performed By: #### 5 7021-8 #### TITUS Mercado ([id number]) [facility] ([facility]) [address] [place] [address] 56676 XR tomography Unspecified monique dy regionon 04-09-2024 These images are not reportable by radiology and will not be interpreted by Radiologists. IMAGING CT TRANSFER OF OUTSIDE FILMS on 03-31-2024 CT TRANSFER OF OUTSIDE FILMS Outside images for comparison or treatment purposes, not interpreted by Radiologists. Normal [facility] Study Interpretation of outs jeffrey studyon 03-31-2024 Outside images for comparison or treatment purposes, not interpreted by Radiologists. IMAGING Blood type and Indirect anti body screen panel (Bld)on 03-26-2024 ABO group Nom (Bld) A Normal [facility] Comment on above: Performed By: #### 3 4532-2 #### TITUS Mercado ([id number]) [facility] ([facility]) [address] [place] [address]348 Blood group antibody screen Ql Negative [facility] Comment on above: Performed By: #### 3 4532-2 #### TITUS Mercado ([id number]) [facility] ([facility]) [address] [place] [address] D Ag Ql (Bld) Positive [facility] Comment on above: Performed By: #### 3 4532-2 #### TITUS Mercado ([id number]) [facility] ([facility]) [address] [place] [address] DEXA BONE DENSITYon 02-13-20 24 DEXA BONE DENSITY Interpreted By: Ruddy Simmons, STUDY: DEXA BONE DENSITY8/ 10:50 am INDICATION: Signs/Symptoms:r/o osteoporosis, NEED AXIAL SKELETON IMAGES.. The patient is a 63 y/o year old M. ,M54.12 Radiculopathy, cervical region COMPARISON: None. ACCESSION NUMBER(S): [id number] ORDERING CLINICIAN: DORETHA HARRIS TECHNIQUE: DEXA BONE [...] Ruddy Lopez 12/29/2024 8:09 AM Dictation workstation: [id number] [facility] DXA Skeletal system Views fo r bone [...] Radiculopathy, cervical region COMPARISON: None. ACCESSION NUMBER(S): [id number] ORDERING CLINICIAN: DORETHA HARRIS FINDINGS: C-spine, 6 [...] Romulo Medrano 02/19/2024 6:35 PM Dictation workstation: [id number] [facility] Comment on above: Order Comment: Pleas e obtain with flexion and extension XR CHEST 2 VIEWSon XR CHEST 2 VIEWS Interpreted By: Romulo Hubbard, STUDY: XR CHEST 2 VIEWS; 02/13/2024 11:10 am INDICATION: Signs/Symptoms:Preop surgery 02/[address] Steven MD. ,M54.12 Radiculopathy, cervical region,M81.0 Age-related osteoporosis without current pathological fracture COMPARISON: None. ACCESSION NUMBER(S): [id number] ORDERING CLINICIAN: DORETHA HARRIS FINDINGS: CARDIOMEDIASTINAL SILHOUETTE: Cardiomediastinal silhouette is normal in size and configuration. LUNGS: Lungs are clear. ABDOMEN: No remarkable upper abdominal findings. BONES: No acute osseous changes. IMPRESSION: 1. No evidence of acute cardiopulmonary process. MACRO: None Signed by: Romulo Medrano 02/19/2024 6:53 PM Dictation workstation: [id number] [facility] ECG 12 leadOrdered By: Shavon Rico on 02-12-2024 Atrial Rate 63 BPM [facility] Work Phone: P Rio 58 degrees [facility] Work Phone: P Offset 149 ms [facility] Work Phone: P Onset 90 ms [facility] Work Phone: [phone] VA Interval 268 ms [facility] Work Phone: [phone] Q Onset 224 ms [facility] Work Phone: [phone] QRS Count 10 beats [facility] Work Phone: [phone] QRS Duration 74 ms [facility] Work Phone: [phone] QT Interval 406 ms [facility] Work Phone: [phone] QTC Calculation(Bazett) 415 ms [facility] Work Phone: [phone] QTC Fredericia 412 ms [facility] Work Phone: [phone] R Rio -3 degrees [facility] Work Phone: [phone] T Rio 18 degrees [facility] Work Phone: [phone] T Offset 427 ms [facility] Work Phone: [phone] Ventricular Rate 63 BPM [facility] Work Phone: [phone] [facility] Work Phone: [phone] ECG 12 leadon 02-12-2024 Sinus rhythm [...] Tobi Rico ([id number]) on 02/12/2024 12:20:00 PM [facility] Work Phone: Basic metabolic 2000 panelon 02-11-2024 Anion gap [Moles/Vol] 13 mmol/L Normal 10-20 [facility] Comment on above: Performed By: #### 2 4321-2 #### TITUS Mercado ([id number]) [facility] ([facility]) [address] [place] [address] Calcium [Mass/Vol] 9.6 mg/dL Normal 8.6-10.6 [facility] Comment on above: Performed By: #### 2 4321-2 #### TITUS Mercado ([id number]) [facility] ([facility]) [address] [place] [address] Chloride [Moles/Vol] 104 mmol/L Normal 98-107 [facility] Comment on above: Performed By: #### 2 4321-2 #### TITUS Mercado ([id number]) [facility] ([facility]) [address] [place] [address] CO2 [Moles/Vol] 26 mmol/L Normal 21-32 [facility] Comment on above: Performed By: #### 2 4321-2 #### TITUS Mercado ([id number]) [facility] ([facility]) [address] [place] [address] Creatinine [Mass/Vol] 0.89 mg/dL Normal 0.50-1.30 [facility] Comment on above: Performed By: #### 2 4321-2 #### TITUS Mercado ([id number]) [facility] ([facility]) [address] [place] [address] GFR/1.73 sq M.predicted MDRD (S/P/Bld) [Vol rate/Area] mL/min/{1.73_m2} Normal >60 [facility] Comment on above: Result Comment: Calc ulations of estimated GFR are performed using the 2020 CKD-EPI Study Refit equation without the race variable for the IDMS-Traceable creatinine methods. https://jasn.asnjournals.org/content/early/ASN.63011 09811 Performed By: #### 2 4321-2 #### TITUS Mercado ([id number]) [facility] ([facility]) [address] [place] [address] Glucose [Mass/Vol] 77 mg/dL Normal 74-99 [facility] Comment on above: Performed By: #### 2 4321-2 #### TITUS Mercado ([id number]) [facility] ([facility]) [address] [place] [address] Potassium [Moles/Vol] 4.6 mmol/L Normal 3.5-5.3 [facility] Comment on above: Performed By: #### 2 4321-2 #### TITUS Mercado ([id number]) [facility] ([facility]) [address] [place] [address] 92968 Sodium [Moles/Vol] 138 mmol/L Normal 136-145 [facility] Comment on above: Performed By: #### 2 4321-2 #### TITUS Mercado ([id number]) [facility] ([facility]) [address] [place] [address] 32301 Urea nitrogen [Mass/Vol] 9 mg/dL Normal 6-23 [facility] Comment on above: Performed By: #### 2 432-2 #### TITUS Mercado ([id number]) [facility] ([facility]) [address] [place] [address] 70368 Blood type and Indirect anti body screen panel (Bld)on 02-11-2024 ABO group Nom (Bld) A Normal [facility] Comment on above: Performed By: #### 3 453-2 #### TITUS Mercado ([id number]) [facility] ([facility]) [address] [place] [address] Blood group antibody screen Ql Negative [facility] Comment on above: Performed By: #### 3 4532-2 #### TITUS Mercado ([id number]) [facility] ([facility]) [address] [place] [address] 77177 D Ag Ql (Bld) Positive [facility] Comment on above: Performed By: #### 3 453-2 #### TITUS Mercado ([id number]) [facility] ([facility]) [address] [place] [address] 27418 CBC W Auto Differential pane l (Bld)on 02-11-2024 Basophils (Bld) [#/Vol] 0.04 x10*3/uL Normal 0.00-0.10 [facility] Comment on above: Performed By: #### 5 7021-8 #### TITUS Mercado ([id number]) [facility] ([facility]) [address] [place] [address] 97923 Basophils/100 WBC (Bld) 0.8 % Normal 0.0-2.0 [facility] Comment on above: Performed By: #### 5 7021-8 #### TITUS Mercado ([id number]) [facility] ([facility]) [address] [place] [address] 07802 Eosinophils (Bld) [#/Vol] 0.05 x10*3/uL Normal 0.00-0.70 [facility] Comment on above: Performed By: #### 5 7021-8 #### TITUS SOLORZANO L ([id number]) [facility] ([facility]) [address] [place] [address] 07880 Eosinophils/100 WBC (Bld) 1.0 % Normal 0.0-6.0 [facility] Comment on above: Performed By: #### 5 7021-8 #### TITUS Mercado ([id number]) [facility] ([facility]) [address] [place] [address] 53386 Erythrocyte distribution width (RBC) [Ratio] 13.2 % Normal 11.5-14.5 [facility] Comment on above: Performed By: #### 5 7021-8 #### TITUS Mercado ([id number]) [facility] ([facility]) [address] [place] [address] 94264 Hematocrit (Bld) [Volume fraction] 39.6 % Low 41.0-52.0 [facility] Comment on above: Performed By: #### 5 7021-8 #### TITUS Mercado ([id number]) [facility] ([facility]) [address] [place] [address] Hemoglobin (Bld) [Mass/Vol] 13.2 g/dL Low 13.5-17.5 [facility] Comment on above: Performed By: #### 5 7021-8 #### TITUS Mercado ([id number]) [facility] ([facility]) [address] [place] [address] 11177 Immature granulocytes (Bld) [#/Vol] 0.00 x10*3/uL Normal 0.00-0.70 [facility] Comment on above: Performed By: #### 5 7021-8 #### TITUS Mercado ([id number]) [facility] ([facility]) [address] [place] [address] [address] Immature granulocytes/100 WBC (Bld) 0.0 % Normal 0.0-0.9 [facility] Comment on above: Result Comment: Dayan ture Granulocyte Count (IG) includes promyelocytes, myelocytes and metamyelocytes but does not include bands. Percent differential counts (%) should be interpreted in the context of the absolute cell counts (cells/UL). Performed By: #### 5 7021-8 #### TITUS Mercado ([id number]) [facility] ([facility]) [address] [place] [address] Lymphocytes (Bld) [#/Vol] 1.74 x10*3/uL Normal 1.20-4.80 [facility] Comment on above: Performed By: #### 5 7021-8 #### TITUS Mercado ([id number]) [facility] ([facility]) [address] [place] [address]9616 Lymphocytes/100 WBC (Bld) 33.1 % Normal 13.0-44.0 [facility] Comment on above: Performed By: #### 5 7021-8 #### TITUS Mercado ([id number]) [facility] ([facility]) [address] [place] [address] MCH (RBC) [Entitic mass] 31.5 pg Normal 26.0-34.0 [facility] Comment on above: Performed By: #### 5 7021-8 #### TITUS Mercado ([id number]) [facility] ([facility]) [address] [place] [address] MCHC (RBC) [Mass/Vol] 33.3 g/dL Normal 32.0-36.0 [facility] Comment on above: Performed By: #### 5 7021-8 #### TITUS Mercado ([id number]) [facility] ([facility]) [address] [place] [address]84 MCV (RBC) [Entitic vol] 95 fL Normal 80-100 [facility] Comment on above: Performed By: #### 5 7021-8 #### TITUS Mercado ([id number]) [facility] ([facility]) [address] [place] [address] Monocytes (Bld) [#/Vol] 0.30 x10*3/uL Normal 0.10-1.00 [facility] Comment on above: Performed By: #### 5 7021-8 #### TITUS Mercado ([id number]) [facility] ([facility]) [address] [place] [address] Monocytes/100 WBC (Bld) 5.7 % Normal 2.0-10.0 [facility] Comment on above: Performed By: #### 5 7021-8 #### TITUS Mercado ([id number]) [facility] ([facility]) [address] [place] [address] Neutrophils (Bld) [#/Vol] 3.13 x10*3/uL Normal 1.20-7.70 [facility] Comment on above: Result Comment: Perc ent differential counts (%) should be interpreted in the context of the absolute cell counts (cells/uL). Performed By: #### 5 7021-8 #### TITUS PAYANMOTZSIMI L ([id number]) [facility] ([facility]) [address] [place] [address] Neutrophils/100 WBC (Bld) 59.4 % Normal 40.0-80.0 [facility] Comment on above: Performed By: #### 5 7021-8 #### TITUS SOLORZANO L ([id number]) [facility] ([facility]) [address] [place] [address] Nucleated RBC/100 WBC (Bld) [Ratio] 0.0 /100 WBCs Normal 0.0-0.0 [facility] Comment on above: Performed By: #### 5 7021-8 #### TITUS SOLORZANO L ([id number]) [facility] ([facility]) [address] [place] [address] Platelets (Bld) [#/Vol] 271 x10*3/uL Normal 150-450 [facility] Comment on above: Performed By: #### 5 7021-8 #### TITUS Mercado ([id number]) [facility] ([facility]) [address] [place] [address]08 RBC (Bld) [#/Vol] 4.19 x10*6/uL Low 4.50-5.90 [facility] Comment on above: Performed By: #### 5 7021-8 #### TITUS SOLORZANO L ([id number]) [facility] ([facility]) [address] [place] [address] WBC (Bld) [#/Vol] 5.3 x10*3/uL Normal 4.4-11.3 [facility] Comment on above: Performed By: #### 5 7021-8 #### TITUS SOLORZANO L ([id number]) [facility] ([facility]) [address] [place] [address] 39177 ECG 12-LEADon 02-11-2024 ECG 12-LEAD Ventricular Rate 63 Atrial Rate 63 P-R Interval 268 QRS Duration 74 Q-T Interval 406 QTC Calculation(Bazett) 415 P Rio 58 R Rio -3 T Rio 18 QRS Count 10 Q Onset 224 P Onset 90 P Offset 149 T Offset 427 QTC Fredericia 412 Diagnosis Sinus rhythm with 1st degree AV block Otherwise normal ECG When compared with ECG of 30-JAN-2019 19:26, heart rate decreased Confirmed by Tobi Rico ([id number]) on 02/12/2024 12:20:00 PM Normal [facility] NICOTINE AND METABOLITES,Son 02-11-2024 Cotinine [Mass/Vol] 152 ng/mL Normal [facility] Comment on above: Performed By: #### N I+ME #### [facility] [place]) ([id number]) [address] [place] [address] Nicotine [Mass/Vol] 6 ng/mL Normal [facility] Comment on above: Result Comment: INTE RPRETIVE [...] developed and its performance characteristics determined by [employer]. It has not been cleared or approved by the US Food and Drug Administration. This test was performed in a CLIA certified laboratory and is intended for clinical purposes. Performed By: [employer] [address] [place] [address] Daycare Manager: Benjamin Bullock MD, PhD CLIA Number: [id number] Performed By: #### N I+ME #### [facility] ([place]) ([id number]) [address] [place] [address] PT and aPTT panel Coag (PPP) on 02-11-2024 aPTT Coag (PPP) [Time] 33 s Normal 27-38 Un [facility] Comment on above: Order Comment: The A PTT is no longer used for monitoring Unfractionated Heparin Therapy. For monitoring Heparin Therapy, use the Heparin Assay. Performed By: #### 3 4529-8 ###Payam Mercado ([id number]) [facility] ([facility]) [address] [place] [address] INR Coag (PPP) [Relative time] 1.0 Normal 0.9-1.1 [facility] Comment on above: Order Comment: The A PTT is no longer used for monitoring Unfractionated Heparin Therapy. For monitoring Heparin Therapy, use the Heparin Assay. Performed By: #### 3 4529-8 #### TITUS Mercado ([id number]) [facility] ([facility]) [address] [place] [address] PT Coag (PPP) [Time] 11.5 s Normal 9.8-12.8 [facility] Comment on above: Order Comment: The A PTT is no longer used for monitoring Unfractionated Heparin Therapy. For monitoring Heparin Therapy, use the Heparin Assay. Performed By: #### 3 4529-8 #### TITUS Mercado ([id number]) [facility] ([facility]) [address] [place] [address] Staphylococcus aureus.methic illin resistant isolateon 02-11-2024 MRSA isol Org specific cx Ql (Nose) Test: Staphylococcus aureus/MRSA colonization, Culture Specimen Source: Anterior Nares Specimen Type: Swab Specimen Date: 02/11/20241504 Result Date: 02/13/2024825 Result Status: Final result Abnormal: No Resulting Lab: [facility] [address] [place] [address] CULTURE No Staphylococcus aureus isolated Normal [facility] Comment on above: Performed By: #### 5 2969-3 #### TITUS Mercado ([id number]) [facility] ([facility]) [address] [place] [address] Urinalysis complete W Reflex Culture panel (U)on 02-11-2024 Appearance (U) Clear Normal Clear [facility] Comment on above: Performed By: #### 5 8077-9 #### TITUS Mercado ([id number]) [facility] ([facility]) [address] [place] [address] Bilirubin (U) [Mass/Vol] Negative Normal NEGATIVE [facility] Comment on above: Performed By: #### 5 8077-9 #### TITUS Mercado ([id number]) [facility] ([facility]) [address] [place] [address] 15484 Color (U) Colorless Normal Light-Warrick ow, Yellow, Dark-Yello w [facility] Comment on above: Performed By: #### 5 8077-9 #### TITUS SOLORZANO L ([id number]) [facility] ([facility]) [address] [place] [address] 79258 Glucose Auto test strip (U) [Mass/Vol] Normal Normal Normal [facility] Comment on above: Performed By: #### 5 8077-9 #### TITUS Mercado ([id number]) [facility] ([facility]) [address] [place] [address]46 Ketones (U) [Mass/Vol] Negative Normal NEGATIVE [facility] Comment on above: Performed By: #### 5 8077-9 #### TITUS Mercado ([id number]) [facility] ([facility]) [address] [place] [address] 97439 Leukocyte esterase Auto test strip Ql (U) Negative Normal NEGATIVE [facility] Comment on above: Performed By: #### 5 8077-9 #### TITUS Mercado ([id number]) [facility] ([facility]) [address] [place] [address] 93595 Nitrite Auto test strip Ql (U) Negative Normal NEGATIVE [facility] Comment on above: Performed By: #### 5 8077-9 #### TITUS SOLORZANO L ([id number]) [facility] ([facility]) [address] [place] [address] 74017 pH (U) 5.5 [pH] Normal 5.0, 5.5, 6.0, 6.5, 7.0, 7.5, 8.0 [facility] Comment on above: Performed By: #### 5 8077-9 #### TITUS SOLORZANO L ([id number]) [facility] ([facility]) [address] [place] [address] 08099 Protein (U) [Mass/Vol] Negative Normal NEGAT KURT, 10 (TRACE), 20 (TRACE) [facility] Comment on above: Performed By: #### 5 8077-9 #### TITUS PAYANMOTZER L ([id number]) [facility] ([facility]) [address] [place] [address] 91692 RBC (U) [#/Vol] Negative Normal NEGATIVE [facility] Comment on above: Performed By: #### 5 8077-9 #### TITUS ORTIZTZER L ([id number]) [facility] ([facility]) [address] [place] [address] 78880 Specific gravity (U) [Rel density] 1.007 Normal 1.005-1.03 5 [facility] Comment on above: Performed By: #### 5 8077-9 #### TITUS PAYANMOTZER L ([id number]) [facility] ([facility]) [address] [place] [address] 46417 Urobilinogen (U) [Mass/Vol] Normal Normal Normal [facility] Comment on above: Performed By: #### 5 8077-9 #### TITUS PAYANMOTZER L ([id number]) [facility] ([facility]) [address] [place] [address] 32395 MR BRAIN TUMOR PERFUSION PRO TOCOL W AND WO IV CONTRASTon 12-13-2023 MR BRAIN TUMOR PERFUSION PROTOCOL W AND WO IV CONTRAST Interpreted By: Nate Benavidez, STUDY: MR BRAIN TUMOR PERFUSION PROTOCOL W AND WO IV CONTRAST; 12/13/2023 8:49 am INDICATION: Signs/Symptoms:pontine lesion, imaging surveillance. COMPARISON: None. ACCESSION NUMBER(S): [id number] ORDERING CLINICIAN: SHIMON HEATON TECHNIQUE: Axial diffusion, [...] Nate Benavidez 12/13/2023 9:38 AM Dictation workstation: [id number] [facility] Comment on above: Order Comment: JESSICA huerta cc'd to [facility] Brain for new diagnosis t umor [...] Nate Benavidez 12/13/2023 9:38 AM Dictation workstation: [id number] Interpreted By: Nate Dejesus, STUDY: MR BRAIN TUMOR PERFUSION PROTOCOL W AND WO IV CONTRAST; 12/13/2023 8:49 am INDICATION: Signs/Symptoms:pontine lesion, imaging surveillance. COMPARISON: None. ACCESSION NUMBER(S): [id number] ORDERING CLINICIAN: SHIMON HEATON TECHNIQUE: Axial diffusion, [...] lesion, imaging surveillance. COMPARISON: None. ACCESSION NUMBER(S): [id number] ORDERING CLINICIAN: SHIMON HEATON TECHNIQUE: Axial diffusion, [...] Nate Benavidez 12/13/2023 9:38 AM Dictation workstation: [id number] [facility] Work Phone: Radiology Study observation (narrative) [facility] Work Phone: MR Brain for new diagnosis t umor WO and W contrast IVOrdered By: Nate Benavidez on 12-13-2023 [facility] Work Phone: Basophils Auto (Bld) [#/Vol] on 10-26-2023 Basophils (Bld) [#/Vol] 0.04 10*3/uL <0.11 [facility] Basophils/100 WBC Auto (Bld) on 10-26-2023 Basophils/100 WBC (Bld) 0.5 % [facility] Blood manual differential co mment interpretation narrativeon 10-26-2023 Manual differential comment Curtis (Bld) [Interp] Auto [facility] CBC W Auto Differential pane l (Bld)on 10-26-2023 Basophils (Bld) [#/Vol] 0.04 10*3/uL [facility] Basophils/100 WBC (Bld) 0.5 % [facility] Differential cell count method Nom (Bld) Auto [facility] Eosinophils (Bld) [#/Vol] 0.13 10*3/uL [facility] Eosinophils/100 WBC (Bld) 1.5 % [facility] Erythrocyte distribution width (RBC) [Ratio] 13.8 % 11.5 - 15.0 % [facility] Hematocrit (Bld) [Volume fraction] 42.6 % 39.0 - 51.0 % [facility] Hemoglobin (Bld) [Mass/Vol] 14.4 g/dL 13.0 - 17.0 g/dL [facility] Immature granulocytes (Bld) [#/Vol] 0.03 10*3/uL [facility] Immature granulocytes/100 WBC (Bld) 0.3 % [facility] Lymphocytes (Bld) [#/Vol] 2.18 10*3/uL [facility] Lymphocytes/100 WBC (Bld) 24.8 % [facility] MCH (RBC) [Entitic mass] 32.0 pg 26.0 - 34.0 pg [facility] MCHC (RBC) [Mass/Vol] 33.8 g/dL 30.5 - 36.0 g/dL [facility] MCV (RBC) [Entitic vol] 94.7 fL 80.0 - 100.0 fL [facility] Monocytes (Bld) [#/Vol] 0.60 10*3/uL [facility] Monocytes/100 WBC (Bld) 6.8 % [facility] Neutrophils (Bld) [#/Vol] 5.80 10*3/uL [facility] Neutrophils/100 WBC (Bld) 66.1 % [facility] Nucleated RBC (Bld) [#/Vol] [facility] Nucleated RBC/100 WBC (Bld) [Ratio] 0.0 % /100 WBC [facility] Platelet mean volume (Bld) [Entitic vol] 10.2 fL 9.0 - 12.7 fL [facility] Platelets (Bld) [#/Vol] 314 10*3/uL [facility] RBC (Bld) [#/Vol] 4.50 10*6/uL 4.20 - 6.00 m/uL [facility] WBC (Bld) [#/Vol] 8.78 10*3/uL [facility] CT Chest W contrast Tristin IMPRESSION: [...] any questions regarding this interpretation, please call [phone]. If you are unable to reach us at the number above, please feel free to contact [facility] eRadiology at [phone]. DIVISION OF RADIOLOGY * * *Final Report* * * DATE OF EXAM: Oct 26 2023 10:05AM [facility] 0539 - CT CHEST W [...] DATE OF EXAM: Oct 26 2023 10:05AM [facility] 0539 - CT CHEST W [...] any questions regarding this interpretation, please call [phone]. If you are unable to reach us at the number above, please feel free to contact [facility] at [phone]. [facility] CT Neck W contrast Tristin 05-1 IMPRESSION: Primary: 1: Expected post-treatment changes in the neck without evidence of recurrent disease in the primary site. Neck: 1: No evidence of abnormal lymph nodes. [email or web address] Transcribe Date/Time: Oct 26 2023 10:15A Dictated by: LIMA LIZ MD This examination was interpreted and the report reviewed and electronically signed by: LIMA LIZ MD on Oct 26 2023 10:35AM EST Thank you for allowing us to participate in the care of your patient. Should there be any questions regarding this interpretation, please call [phone]. If you are unable to reach us at the number above, please feel free to contact [facility] at [phone]. 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 Resected T1 N1 base [...] normal. Parotid and submandibular spaces are normal. Highway Commissioner spaces appear normal. Infrahyoid Neck: Hypopharynx, larynx, [...] are clear of focal consolidation or mass. 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 Resected T1 N1 base [...] normal. Parotid and submandibular spaces are normal. Highway Commissioner spaces appear normal. Infrahyoid Neck: Hypopharynx, larynx, [...] are clear of focal consolidation or mass. [employer] (topogram) images: Noncontributory IMPRESSION IMPRESSION: Primary: 1: Expected post-treatment changes in the neck without evidence of recurrent disease in the primary site. Neck: 1: No evidence of abnormal lymph nodes. [email or web address] Transcribe Date/Time: Oct 26 2023 10:15A Dictated by: LIMA LIZ MD This examination was interpreted and the report reviewed and electronically signed by: (more content not included)... [facility] CT Neck W contrast IVOrdered By: [facility]cf Provider on 10-26-2023 [facility] Comprehensive metabolic 2000 panelOrdered By: Pauly Chan on 10-26-2023 Albumin [Mass/Vol] 4.3 g/dL 3.9 - 4.9 g/dL [facility] ALP [Catalytic activity/Vol] 75 U/L 38 - 113 U/L [facility] ALT [Catalytic activity/Vol] 10 U/L 10 - 54 U/L [facility] Anion gap [Moles/Vol] 8 mmol/L Low 9 - 18 mmol/L [facility] AST [Catalytic activity/Vol] 9 U/L Low 14 - 40 U/L [facility] Bilirubin [Mass/Vol] 0.5 mg/dL 0.2 - 1 .3 mg/dL [facility] Calcium [Mass/Vol] 9.9 mg/dL 8.5 - 10. 2 mg/dL [facility] Chloride [Moles/Vol] 106 mmol/L High 97 - 10 5 mmol/L [facility] CO2 [Moles/Vol] 27 mmol/L 22 - 30 mmol/L [facility] Creatinine [Mass/Vol] 1.01 mg/dL 0.73 - 1.22 mg/dL [facility] GFR/1.73 sq M.predicted among non-blacks MDRD (S/P/Bld) [Vol rate/Area] 85 mL/min/{1.73_m2} - PINF [facility] Comment on above: Estimated Glomerular Filtration [...] [Mass/Vol] 89 mg/dL 74 - 99 mg/dL [facility] Comment on above: The [place] Di[employer] Association (ADA) provides guidance for [...] Standards of Medical Care in Diabetes 2016, [place] [employer]. Diabetes Care. 2016.39(Suppl 1). Interpretation and review of laboratory results Abnormal [facility] Potassium [Moles/Vol] 4.0 mmol/L 3.7 - 5.1 mmol/L [facility] Protein [Mass/Vol] 6.4 g/dL 6.3 - 8.0 g/dL [facility] Sodium [Moles/Vol] 141 mmol/L 136 - 144 mmol/L [facility] Urea nitrogen [Mass/Vol] 16 mg/dL 9 - 24 mg/dL [facility] Eosinophils/100 WBC Auto (Bl d)on 10-26-2023 Eosinophils/100 WBC (Bld) 1.5 % [facility] Erythrocyte distribution wid th Auto (RBC) [Ratio]on 10-26-2023 Erythrocyte distribution width (RBC) [Ratio] 13.8 % 11.5-15.0 [facility] Hematocrit Auto (Bld) [Volum e fraction]on 10-26-2023 Hematocrit (Bld) [Volume fraction] 42.6 % 39.0-51.0 [facility] Hemoglobin [Mass/volume] in Bloodon 10-26-2023 Hemoglobin (Bld) [Mass/Vol] 14.4 g/dL 13.0-17.0 [facility] Laboratory - Chemistry and C hemistry - challengeon 10-26-2023 Albumin [Mass/Vol] 4.3 g/dL 3.9-4.9 [facility] ALP [Catalytic activity/Vol] 75 U/L 38-113 [facility] ALT [Catalytic activity/Vol] 10 U/L 10-54 [facility] AST [Catalytic activity/Vol] 9 U/L 14-40 [facility] Bilirubin [Mass/Vol] 0.5 mg/dL 0.2-1.3 [facility] Calcium [Mass/Vol] 9.9 mg/dL 8.5-10.2 [facility] Chloride [Moles/Vol] 106 mmol/L 97-105 [facility] CO2 [Moles/Vol] 27 mmol/L 22-30 [facility] Creatinine [Mass/Vol] 1.01 mg/dL 0.73-1.22 [facility] Glucose [Mass/Vol] 89 mg/dL 74-99 [facility] Comment on above: The [place] Diab[employer] Association (ADA) provides guidance for [...] Standards of Medical Care in Diabetes 2016, [place] [employer] Association. Diabetes Care. 2016.39(Suppl 1). Potassium [Moles/Vol] 4.0 mmol/L 3.7-5.1 [facility] Sodium [Moles/Vol] 141 mmol/L 136-144 [facility] Urea nitrogen [Mass/Vol] 16 mg/dL 9-24 [facility] - Hematology and Cell countson 10-26-2023 Eosinophils (Bld) [#/Vol] 0.13 10*3/uL <0.46 [facility] Immature granulocytes (Bld) [#/Vol] 0.03 10*3/uL <0.10 [facility] Immature granulocytes/100 WBC (Bld) 0.3 % [facility] Leukocytes [#/volume] correc mone for nucleated erythrocytes in Blood by Automated counon 10-26-2023 WBC corrected for nucl RBC Auto (Bld) [#/Vol] 8.78 k/uL 3.70-11.00 [facility] Lymphocytes Auto (Bld) [#/Vo l]on 10-26-2023 Lymphocytes (Bld) [#/Vol] 2.18 10*3/uL 1.00-4.00 [facility] Lymphocytes/100 WBC Auto (Bl d)on 10-26-2023 Lymphocytes/100 WBC (Bld) 24.8 % [facility] MCH Auto (RBC) [Entitic mass ]on 10-26-2023 MCH (RBC) [Entitic mass] 32.0 pg 26.0-34.0 [facility] MCHC Auto (RBC) [Mass/Vol]on 10-26-2023 MCHC (RBC) [Mass/Vol] 33.8 g/dL 30.5-36.0 [facility] MCV Auto (RBC) [Entitic vol] on 10-26-2023 MCV (RBC) [Entitic vol] 94.7 fL 80.0-100.0 [facility] Monocytes Auto (Bld) [#/Vol] on 10-26-2023 Monocytes (Bld) [#/Vol] 0.60 10*3/uL <0.87 [facility] Monocytes/100 WBC Auto (Bld) on 10-26-2023 Monocytes/100 WBC (Bld) 6.8 % [facility] Neutrophils Auto (Bld) [#/Vo l]on 10-26-2023 Neutrophils (Bld) [#/Vol] 5.80 10*3/uL 1.45-7.50 [facility] Neutrophils/100 WBC Auto (Bl d)on 10-26-2023 Neutrophils/100 WBC (Bld) 66.1 % [facility] No Panel Informationon 10-25 Radiology Study observation (narrative) [facility] Estimated GFR (CKD-EPI) 85 mL/min/1.73m??? >=60 [facility] Comment on above: Estimated Glomerular Filtration [...] 10-26-2023 Nucleated RBC (Bld) [#/Vol] 10*3/uL <0.01 [facility] Nucleated erythrocytes [Pres ence] in Blood by Automated counton 10-26-2023 Nucleated RBC Auto Ql (Bld) 0.0 /100{WBC} [facility] Platelet mean volume Auto (B ld) [Entitic vol]on 10-26-2023 Platelet mean volume (Bld) [Entitic vol] 10.2 fL 9.0-12.7 [facility] Platelets Auto (Bld) [#/Vol] on 10-26-2023 Platelets (Bld) [#/Vol] 314 10*3/uL 150-400 [facility] Protein [Mass/volume] in Ser um or Plasmaon 10-26-2023 Protein [Mass/Vol] 6.4 g/dL 6.3-8.0 [facility] RBC Auto (Bld) [#/Vol]on RBC (Bld) [#/Vol] 4.50 10*6/uL 4.20-6.00 [facility] Serum or plasma anion gap de terminationon 10-26-2023 Anion gap [Moles/Vol] 8 mmol/L 9-18 [facility] Alanine aminotransferase [En zymatic activity/volume] in Serum or PlasmaOrdered By: Griselda Hastings on 10-09-2023 ALT [Catalytic activity/Vol] 8 U/L 7-52 [facility] Albumin [Mass/volume] in Ser um or Plasma by Bromocresol green (BCG) dye binding methoOrdered By: Griselda Hastings on 10-09-2023 Albumin BCG dye [Mass/Vol] 3.9 g/dL 3.5-5.7 [facility] Alkaline phosphatase [Enzyma tic activity/volume] in Serum or PlasmaOrdered By: Griselda Hastings on 10-09-2023 ALP [Catalytic activity/Vol] 59 U/L 34-104 [facility] Aspartate aminotransferase [ Enzymatic activity/volume] in Serum or PlasmaOrdered By: Griselda Hastings on 10-09-2023 AST [Catalytic activity/Vol] 7 U/L 13-39 [facility] Basophils Auto (Bld) [#/Vol] Ordered By: Griselda Hastings on 10-09-2023 Basophils (Bld) [#/Vol] 0.1 10*3/uL 0.0-0.2 [facility] Basophils/100 WBC Auto (Bld) Ordered By: Griselda Hastings on 10-09-2023 Basophils/100 WBC (Bld) 0.9 % . [facility] Bilirubin.total [Mass/volume ] in Serum or PlasmaOrdered By: Griselda Hastings on 10-09-2023 Bilirubin [Mass/Vol] 0.5 mg/dL 0.3-1.0 [facility] COVID-19 Detected/Not Detect edOrdered By: Griselda Hastings on 10-09-2023 SARS-CoV-2 (COVID-19) RNA JER+non-probe Ql (Nph) Not detected Not Detecte [facility] Comment on above: This is a duplicate RP2.1 COVID (PCR) result to be used for statistical tracking purpose only. Calcium [Mass/volume] in Ser um or PlasmaOrdered By: Griselda Hastings on 10-09-2023 Calcium [Mass/Vol] 9.5 mg/dL 8.6-10.3 [facility] Carbon dioxide, total [Moles /volume] in Serum or PlasmaOrdered By: Griselda Hastings on 10-09-2023 CO2 [Moles/Vol] 30.0 mmol/L 21.0-31.0 [facility] Chloride [Moles/volume] in S rica or PlasmaOrdered By: Griselda Hastings on 10-09-2023 Chloride [Moles/Vol] 103 mmol/L 98-107 [facility] Creatinine [Mass/volume] in Serum or PlasmaOrdered By: Griselda Hastings on 10-09-2023 Creatinine [Mass/Vol] 0.92 mg/dL 0.70-1.30 [facility] Eosinophils Auto (Bld) [#/Vo l]Ordered By: Griselda Hastings on 10-09-2023 Eosinophils (Bld) [#/Vol] 0.1 10*3/uL 0.0-0.45 [facility] Eosinophils/100 WBC Auto (Bl d)Ordered By: Griselda Hastings on 10-09-2023 Eosinophils/100 WBC (Bld) 1.0 % . [facility] Erythrocyte distribution wid th Auto (RBC) [Ratio]Ordered By: Griselda Hastings on 10-09-2023 Erythrocyte distribution width (RBC) [Ratio] 14.3 % 12.0-14.8 [facility] Globulin Calc (S) [Mass/Vol] Ordered By: Griselda Hastings on 10-09-2023 Globulin (S) [Mass/Vol] 2.0 g/dL [facility] Glucose [Mass/volume] in Ser um or PlasmaOrdered By: Griselda Hastings on 10-09-2023 Glucose [Mass/Vol] 84 mg/dL 70-100 [facility] Comment on above: ADA recommended refe rence rangeRandom Glucose Reference Range is dependent on time and content of last meal. Glucose of more than 200 mg/dL in a nonstressed, ambulatory subject supports the diagnosis of Diabetes Mellitus. Hematocrit Auto (Bld) [Volum e fraction]Ordered By: Griselda Hastings on 10-09-2023 Hematocrit (Bld) [Volume fraction] 41.9 % 38.8-50.0 [facility] Hemoglobin [Mass/volume] in BloodOrdered By: Griselda Hastings on 10-09-2023 Hemoglobin (Bld) [Mass/Vol] 14.4 g/dL 13.0-17.0 [facility] Leukocytes [#/volume] correc mone for nucleated erythrocytes in Blood by Automated counOrdered By: Griselda Hastings on 10-09-2023 WBC corrected for nucl RBC Auto (Bld) [#/Vol] 8.1 10*3/uL 4.1-10.5 [facility] Lymphocytes Auto (Bld) [#/Vo l]Ordered By: Griselda Hastings on 10-09-2023 Lymphocytes (Bld) [#/Vol] 2.7 10*3/uL 1.00-4.8 [facility] Lymphocytes/100 WBC Auto (Bl d)Ordered By: Griselda Hastings on 10-09-2023 Lymphocytes/100 WBC (Bld) 33.6 % . [facility] MCH Auto (RBC) [Entitic mass ]Ordered By: Griselda Hastings on 10-09-2023 MCH (RBC) [Entitic mass] 32.7 pg 27.5-35.2 [facility] MCHC Auto (RBC) [Mass/Vol]Or dered By: Griselda Hastings on 10-09-2023 MCHC (RBC) [Mass/Vol] 34.4 g/dL 32.5-35.6 [facility] MCV Auto (RBC) [Entitic vol] Ordered By: Griselda Hastings on 10-09-2023 MCV (RBC) [Entitic vol] 94.8 fL 83.5-101 [facility] Monocytes Auto (Bld) [#/Vol] Ordered By: Griselda Hastings on 10-09-2023 Monocytes (Bld) [#/Vol] 0.6 10*3/uL 0.0-0.8 [facility] Monocytes/100 WBC Auto (Bld) Ordered By: Griselda Hastings on 10-09-2023 Monocytes/100 WBC (Bld) 7.5 % . [facility] Neutrophils Auto (Bld) [#/Vo l]Ordered By: Griselda Hastings on 10-09-2023 Neutrophils (Bld) [#/Vol] 4.6 10*3/uL 1.8-7.7 [facility] Neutrophils/100 WBC Auto (Bl d)Ordered By: Griselda Hastings on 10-09-2023 Neutrophils/100 WBC (Bld) 57.0 % . [facility] No Panel InformationOrdered By: Griselda Hastings on 10-09-2023 Estimated GFR (CKD-EPI) > 60.0 mL/Min [facility] Creatinine Clearance (Chem N/A [facility] Nucleated erythrocytes [Pres ence] in Blood by Automated countOrdered By: Griselda Hastings on 10-09-2023 Nucleated RBC Auto Ql (Bld) 0.2 /100{WBC} 0-0.5 [facility] Platelet mean volume Auto (B ld) [Entitic vol]Ordered By: Griselda Hastings on 10-09-2023 Platelet mean volume (Bld) [Entitic vol] 8.3 fL 6.6-10.1 [facility] Platelets Auto (Bld) [#/Vol] Ordered By: Griselda Hastings on 10-09-2023 Platelets (Bld) [#/Vol] 349 10*3/uL 150-450 [facility] Potassium [Moles/volume] in Serum or PlasmaOrdered By: Griselda Hastings on 10-09-2023 Potassium [Moles/Vol] 4.5 mmol/L 3.5-5.1 [facility] Protein [Mass/volume] in Ser um or PlasmaOrdered By: Griselda Hastings on 10-09-2023 Protein [Mass/Vol] 5.9 g/dL 6.4-8.9 [facility] RBC Auto (Bld) [#/Vol]Ordere d By: Griselda Hastings on 10-09-2023 RBC (Bld) [#/Vol] 4.42 10*6/uL 3.90-5.60 [facility] Respiratory pathogens DNA an d RNA panel - Nasopharynx by JER with non-probe detectionOrdered By: Griselda Hastings on 10-09-2023 Respiratory pathogens DNA and RNA panel JER+non-probe (Nph) [facility] Serum or plasma albumin/glob ulin mass ratioOrdered By: Griselda Hastings on 10-09-2023 Albumin/Globulin [Mass ratio] 2.0 {ratio} [facility] Serum or plasma anion gap de terminationOrdered By: Griselda Hastings on 10-09-2023 Anion gap [Moles/Vol] 9.5 mmol/L 6.0-15.0 [facility] Sodium [Moles/volume] in Ser um or PlasmaOrdered By: Griselda Hastings on 10-09-2023 Sodium [Moles/Vol] 138 mmol/L 136-145 [facility] Urea nitrogen [Mass/volume] in Serum or PlasmaOrdered By: Griselda Hastings on 10-09-2023 Urea nitrogen [Mass/Vol] 14 mg/dL 7-25 [facility] WBC Auto (Bld) [#/Vol]Ordere d By: Griselda Hastings on 10-09-2023 WBC (Bld) [#/Vol] 8.1 10*3/uL 4.1-10.5 [facility] Study Interpretation of outs jeffrey studyon [...] Hickman MD 08/01/23 Final result Normal [facility] MRI CERVICAL SPINE WO CONTRA STon [...] Hickman MD 08/01/23 Final result Normal [facility] COVID + FLU Quick [facility]on 07-02-2023 SARS-CoV-2 (COVID-19) RNA JER+probe Ql (Unsp spec) Negative [employer] [facility] [employer] Other COVID + FLU Quick Testing Negative [employer] Other [facility] Strep[facility] 07-02-2023 S. pyogenes Org specific cx Ql (Throat) Negative [employer] [facility] [employer] Other Quick Strep [employer] Other RSVon 07-02-2023 RSV Ag IA Ql (Unsp spec) Negative [employer] [facility] [employer] Other Creatinine [Mass/volume] in Serum or PlasmaOrdered By: Ruddy Harvey on 05-07-2023 Creatinine [Mass/Vol] 0.91 mg/dL 0.70-1.30 [facility] No Panel InformationOrdered By: Ruddy Harvey on 05-07-2023 Estimated GFR (CKD-EPI) > 60.0 mL/Min [facility] Creatinine Clearance (Chem 83.52 [facility] Urea nitrogen [Mass/volume] in Serum or PlasmaOrdered By: Ruddy Harvey on 05-07-2023 Urea nitrogen [Mass/Vol] 15 mg/dL 7-25 [facility] Creatinine (Bld) [Mass/Vol]O rdered By: Nikole Mota on 05-04-2023 Creatinine [Mass/Vol] 0.9 mg/dL 0.6-1.3 [facility] Comment on above: ER/ESD physician is notified/shown all ISTAT results.Critical values may be confirmed by laboratory testing ifdeemed necessary by ER attending doctor. No Panel InformationOrdered By: Nikole Mota on 05-04-2023 Bedside Estimated GFR (eGFR) > 60.0 [facility] Alanine aminotransferase [En zymatic activity/volume] in Serum or PlasmaOrdered By: Griselda Hastings on 03-30-2023 ALT [Catalytic activity/Vol] 10 U/L 7-52 [facility] Albumin [Mass/volume] in Ser um or Plasma by Bromocresol green (BCG) dye binding methoOrdered By: Griselda Hastings on 03-30-2023 Albumin BCG dye [Mass/Vol] 4.2 g/dL 3.5-5.7 [facility] Alkaline phosphatase [Enzyma tic activity/volume] in Serum or PlasmaOrdered By: Griselda Hastings on 03-30-2023 ALP [Catalytic activity/Vol] 61 U/L 34-104 [facility] Aspartate aminotransferase [ Enzymatic activity/volume] in Serum or PlasmaOrdered By: Griselda Hastings on 03-30-2023 AST [Catalytic activity/Vol] 8 U/L 13-39 [facility] Basophils Auto (Bld) [#/Vol] Ordered By: Griselda Hastings on 03-30-2023 Basophils (Bld) [#/Vol] 0.1 10*3/uL 0.0-0.2 [facility] Basophils/100 WBC Auto (Bld) Ordered By: Griselda Hastings on 03-30-2023 Basophils/100 WBC (Bld) 0.8 % . [facility] Bilirubin.total [Mass/volume ] in Serum or PlasmaOrdered By: Griselda Hastings on 03-30-2023 Bilirubin [Mass/Vol] 0.9 mg/dL 0.3-1.0 [facility] Calcium [Mass/volume] in Ser um or PlasmaOrdered By: Griselda Hastings on 03-30-2023 Calcium [Mass/Vol] 9.1 mg/dL 8.6-10.3 [facility] Carbon dioxide, total [Moles /volume] in Serum or PlasmaOrdered By: Griselda Hastings on 03-30-2023 CO2 [Moles/Vol] 27.0 mmol/L 21.0-31.0 [facility] Chloride [Moles/volume] in S rica or PlasmaOrdered By: Griselda Hastings on 03-30-2023 Chloride [Moles/Vol] 103 mmol/L 98-107 [facility] Cholesterol [Mass/volume] in Serum or PlasmaOrdered By: Griselda Hastings on 03-30-2023 Cholesterol [Mass/Vol] 224 mg/dL 140-200 [facility] Comment on above: Chol less than 200 m g/dl low riskChol 201-239 mg/dl borderline riskChol 240 mg/dl and greater high risk Cholesterol in LDL Calc [Mas s/Vol]Ordered By: Griselda Hastings on 03-30-2023 Cholesterol in LDL [Mass/Vol] 148 mg/dL 0-100 [facility] Comment on above: LDL ATP III CLASSIFI CATIONLDL less than 100 mg/dL OptimalLDL 100-129 mg/dL Near or above optimalLDL 130-159 mg/dL Borderline highLDL 160-189 mg/dL HighLDL greater than 189 mg/dL Very high Cholesterol in VLDL Calc [Ma ss/Vol]Ordered By: Griselda Hastings on 03-30-2023 Cholesterol in VLDL [Mass/Vol] 31 mg/dL [facility] Creatinine [Mass/volume] in Serum or PlasmaOrdered By: Griselda Hastings on 03-30-2023 Creatinine [Mass/Vol] 0.82 mg/dL 0.70-1.30 [facility] Eosinophils Auto (Bld) [#/Vo l]Ordered By: Griselda Hastings on 03-30-2023 Eosinophils (Bld) [#/Vol] 0.1 10*3/uL 0.0-0.45 [facility] Eosinophils/100 WBC Auto (Bl d)Ordered By: Griselda Hastings on 03-30-2023 Eosinophils/100 WBC (Bld) 0.6 % . [facility] Erythrocyte distribution wid th Auto (RBC) [Ratio]Ordered By: Griselda Hastings on 03-30-2023 Erythrocyte distribution width (RBC) [Ratio] 14.1 % 12.0-14.8 [facility] Globulin Calc (S) [Mass/Vol] Ordered By: Griselda Hastings on 03-30-2023 Globulin (S) [Mass/Vol] 1.9 g/dL [facility] Glucose [Mass/volume] in Ser um or PlasmaOrdered By: Griselda Hastings on 03-30-2023 Glucose [Mass/Vol] 83 mg/dL 70-100 [facility] Comment on above: ADA recommended refe rence rangeRandom Glucose Reference Range is dependent on time and content of last meal. Glucose of more than 200 mg/dL in a nonstressed, ambulatory subject supports the diagnosis of Diabetes Mellitus. Hematocrit Auto (Bld) [Volum e fraction]Ordered By: Griselda Hastings on 03-30-2023 Hematocrit (Bld) [Volume fraction] 41.4 % 38.8-50.0 [facility] Hemoglobin [Mass/volume] in BloodOrdered By: Griselda Hastings on 03-30-2023 Hemoglobin (Bld) [Mass/Vol] 14.4 g/dL 13.0-17.0 [facility] Leukocytes [#/volume] correc mone for nucleated erythrocytes in Blood by Automated counOrdered By: Griselda Hastings on 03-30-2023 WBC corrected for nucl RBC Auto (Bld) [#/Vol] 10.0 10*3/uL 4.1-10.5 [facility] Lymphocytes Auto (Bld) [#/Vo l]Ordered By: Griselda Hastings on 03-30-2023 Lymphocytes (Bld) [#/Vol] 1.7 10*3/uL 1.00-4.8 [facility] Lymphocytes/100 WBC Auto (Bl d)Ordered By: Griselda Hastings on 03-30-2023 Lymphocytes/100 WBC (Bld) 16.8 % . [facility] MCH Auto (RBC) [Entitic mass ]Ordered By: Griselda aHstings on 03-30-2023 MCH (RBC) [Entitic mass] 33.9 pg 27.5-35.2 [facility] MCHC Auto (RBC) [Mass/Vol]Or dered By: Griselda Hastings on 03-30-2023 MCHC (RBC) [Mass/Vol] 34.9 g/dL 32.5-35.6 [facility] MCV Auto (RBC) [Entitic vol] Ordered By: Griselda Hastings on 03-30-2023 MCV (RBC) [Entitic vol] 97.1 fL 83.5-101 [facility] Monocytes Auto (Bld) [#/Vol] Ordered By: Griselda Hastings on 03-30-2023 Monocytes (Bld) [#/Vol] 0.8 10*3/uL 0.0-0.8 [facility] Monocytes/100 WBC Auto (Bld) Ordered By: Griselda Hastings on 03-30-2023 Monocytes/100 WBC (Bld) 8.0 % . [facility] Neutrophils Auto (Bld) [#/Vo l]Ordered By: Griselda Hastings on 03-30-2023 Neutrophils (Bld) [#/Vol] 7.3 10*3/uL 1.8-7.7 [facility] Neutrophils/100 WBC Auto (Bl d)Ordered By: Griselda Hastings on 03-30-2023 Neutrophils/100 WBC (Bld) 73.8 % . [facility] No Panel InformationOrdered By: Griselda Hastings on 03-30-2023 Estimated GFR (CKD-EPI) > 60.0 mL/Min [facility] Creatinine Clearance (Chem N/A [facility] Nucleated erythrocytes [Pres ence] in Blood by Automated countOrdered By: Griselda Hastings on 03-30-2023 Nucleated RBC Auto Ql (Bld) 0.1 /100{WBC} 0-0.5 [facility] Platelet mean volume Auto (B ld) [Entitic vol]Ordered By: Griselda Hastings on 03-30-2023 Platelet mean volume (Bld) [Entitic vol] 9.2 fL 6.6-10.1 [facility] Platelets Auto (Bld) [#/Vol] Ordered By: Griselda Hastings on 03-30-2023 Platelets (Bld) [#/Vol] 221 10*3/uL 150-450 [facility] Potassium [Moles/volume] in Serum or PlasmaOrdered By: Griselda Hastings on 03-30-2023 Potassium [Moles/Vol] 4.1 mmol/L 3.5-5.1 [facility] Protein [Mass/volume] in Ser um or PlasmaOrdered By: Griselda Hastings on 03-30-2023 Protein [Mass/Vol] 6.1 g/dL 6.4-8.9 [facility] RBC Auto (Bld) [#/Vol]Ordere d By: Griselda Hastings on 03-30-2023 RBC (Bld) [#/Vol] 4.26 10*6/uL 3.90-5.60 [facility] Serum or plasma albumin/glob ulin mass ratioOrdered By: Griselda Hastings on 03-30-2023 Albumin/Globulin [Mass ratio] 2.2 {ratio} [facility] Serum or plasma anion gap de terminationOrdered By: Griselda Hastings on 03-30-2023 Anion gap [Moles/Vol] 12.1 mmol/L 6.0-15.0 [facility] Serum or plasma high density lipoprotein (HDL) cholesterol measurementOrdered By: Griselda Hastings on 03-30-2023 Cholesterol in HDL [Mass/Vol] 44 mg/dL 23-92 [facility] Comment on above: HDL CHOL ATP-III CLA SSIFICATION Cardiovascular RiskHDL > or equal to 60 mg/dL LOWHDL < 40 mg/dL HIGH Serum or plasma total choles terol/high density lipoprotein (HDL) cholesterol mass ratOrdered By: Griselda Hastings on 03-30-2023 Cholesterol.total/Chol esterol in HDL [Mass ratio] 5.1 {ratio} <5.0 [facility] Sodium [Moles/volume] in Ser um or PlasmaOrdered By: Griselda Hastings on 03-30-2023 Sodium [Moles/Vol] 138 mmol/L 136-145 [facility] Thyrotropin [Units/volume] i n Serum or PlasmaOrdered By: Griselda Hastings on 03-30-2023 TSH Qn 0.93 m[IU]/L 0.45-5.33 [facility] Triglyceride [Mass/volume] i n Serum or PlasmaOrdered By: Griselda Hastings on 03-30-2023 Triglyceride [Mass/Vol] 159 mg/dL 0-149 [facility] Comment on above: TRIG ATP III CLASSIF ICATIONTRIG less than 150 mg/dL NormalTRIG 150-199 mg/dL Borderline highTRIG 200-500 mg/dL High TRIG greater than 500 mg/dL Very highStandard traceable to the Center for Disease Conrtrol and Prevention (CDC) test method. Urea nitrogen [Mass/volume] in Serum or PlasmaOrdered By: Griselda Hastings on 03-30-2023 Urea nitrogen [Mass/Vol] 10 mg/dL 7-25 [facility] WBC Auto (Bld) [#/Vol]Ordere d By: Griselda Hastings on 03-30-2023 WBC (Bld) [#/Vol] 10.0 10*3/uL 4.1-10.5 [facility] COVID-19 SOFIAOrdered By: Brandyn Gaytan on 02-26-2023 SARS-CoV+SARS-CoV-2 (COVID-19) Ag IA.rapid Ql (Resp) Negative Negative [facility] Comment on above: This is a duplicate Anna SARS Antigen (JAMILA) result to be used for statistical tracking purpose only. No Panel InformationOrdered By: Daniel Gaytan on 02-26-2023 SARS Antigen (LFIA) [facility] SARS Antigen (LFIA) [facility] No Panel Informationon 12-28 XR Pain Management C ase (Reference Range: not available) *FINAL Date of Service: 12/28/2022 08:49 Adm #: [id number] Reading Dr:RICARDO CAPPS Signoff Dr: RICARDO CAPPS PROCEDURE: PAIN MANAGEMENT CASE - BXR 0999 REASON FOR EXAM: SPONDYLOSIS W/O MYELOPATHY OR RADICULOPATHY, CERVICAL REGION RESULT: Patient Name: SHANTEL MELENDEZ STUDY: PAIN MANAGEMENT CASE INDICATION: SPONDYLOSIS W/O MYELOPATHY OR RADICULOPATHY, CERVICAL REGION COMPARISON: None. ACCESSION NUMBER(S): [id number] ORDERING CLINICIAN: LIMA JOSEPH TECHNIQUE: See below: FINDINGS: Fluoroscopy was provided during therapeutic puncture in the region of the cervical spine for pain management. Total fluoroscopy time: 14.56mgy, images: 4. IMPRESSION: Fluoroscopy for pain management. Dictation workstation: [id number] Original Interpreting Physician: RICARDO CAPPS M.D. Original Transcribed by/Date: MMODAL Dec 28 2022 6:14A Original Electronically Signed by/Date: RICARDO CAPPS M.D. Dec 28 2022 9:04A Addendum Interpreting Physician: Addendum Transcribed by/Date: NO ADDENDUM Addendum Electronically Signed by/Date: [facility] 12-05-2022 S. pyogenes Org specific cx Ql (Throat) Negative [employer] Other [facility] [employer] Other CT Chest W contrast Tristin IMPRESSION: [...] any questions regarding this interpretation, please call [phone]. If you are unable to reach us at the number above, please feel free to contact [facility] at [phone]. DIVISION OF RADIOLOGY * * *Final Report* * * DATE OF EXAM: Oct 27 2022 11:44AM [facility] 0539 - CT CHEST W [...] No abnormality in the imaged upper abdomen. [employer] (topogram) images: No additional findings. DIVISION OF RADIOLOGY Provider, [facility] - 10/30/2022 * * *Final Report* * * DATE OF EXAM: Oct 27 2022 11:44AM [facility] 0539 - CT CHEST W [...] No abnormality in the imaged upper abdomen. [employer] (topogram) images: No additional findings. IMPRESSION IMPRESSION: [...] any questions regarding this interpretation, please call [phone]. If you are unable to reach us at the number above, please feel free to contact [facility] at [phone]. [facility] CBC W Auto Differential pane l (Bld)on 10-27-2022 Basophils (Bld) [#/Vol] 0.03 10*3/uL [facility] Basophils/100 WBC (Bld) 0.3 % [facility] Differential cell count method Nom (Bld) Auto [facility] Eosinophils (Bld) [#/Vol] 0.06 10*3/uL [facility] Eosinophils/100 WBC (Bld) 0.7 % [facility] Erythrocyte distribution width (RBC) [Ratio] 14.0 % 11.5 - 15.0 % [facility] Hematocrit (Bld) [Volume fraction] 43.5 % 39.0 - 51.0 % [facility] Hemoglobin (Bld) [Mass/Vol] 14.5 g/dL 13.0 - 17.0 g/dL [facility] Immature granulocytes (Bld) [#/Vol] 0.03 10*3/uL [facility] Immature granulocytes/100 WBC (Bld) 0.3 % [facility] Lymphocytes (Bld) [#/Vol] 2.00 10*3/uL [facility] Lymphocytes/100 WBC (Bld) 21.9 % [facility] MCH (RBC) [Entitic mass] 31.3 pg 26.0 - 34.0 pg [facility] MCHC (RBC) [Mass/Vol] 33.3 g/dL 30.5 - 36.0 g/dL [facility] MCV (RBC) [Entitic vol] 93.8 fL 80.0 - 100.0 fL [facility] Monocytes (Bld) [#/Vol] 0.53 10*3/uL NINF [facility] Monocytes/100 WBC (Bld) 5.8 % [facility] Neutrophils (Bld) [#/Vol] 6.47 10*3/uL [facility] Neutrophils/100 WBC (Bld) 71.0 % [facility] Nucleated RBC (Bld) [#/Vol] NINF [facility] Nucleated RBC/100 WBC (Bld) [Ratio] 0.0 % /100 WBC [facility] Platelet mean volume (Bld) [Entitic vol] 10.8 fL 9.0 - 12.7 fL [facility] Platelets (Bld) [#/Vol] 253 10*3/uL [facility] RBC (Bld) [#/Vol] 4.64 10*6/uL 4.20 - 6.00 m/uL [facility] WBC (Bld) [#/Vol] 9.12 10*3/uL [facility] CT Neck W contrast Tristin 05-1 IMPRESSION: Primary NIRADS Category: 1. Expected post-treatment changes in the neck without evidence of recurrent disease in the primary site. Neck NIRADS Category: 1. No evidence of abnormal lymph nodes. [email or web address] Transcribe Date/Time: Oct 27 2022 11:56A Dictated by: KALPANA HAMPTON MD This examination was interpreted and the report reviewed and electronically signed by: KALPANA HAMPTON MD on Oct 27 2022 12:14PM EST Thank you for allowing us to participate in the care of your patient. Should there be any questions regarding this interpretation, please call [phone]. If you are unable to reach us at the number above, please feel free to contact [facility] at [phone]. 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 Parotid and submandibular spaces are normal. Highway Commissioner spaces appear normal. Infrahyoid Neck: Hypopharynx, larynx, [...] consolidation or mass. 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 Parotid and submandibular spaces are normal. [address] Commissioner spaces appear normal. Infrahyoid Neck: Hypopharynx, larynx, [...] evidence of abnormal lymph nodes. [email or web address] Transcribe Date/Time: Oct 27 2022 11:56A Dictated by: KALPANA HAMPTON MD This examination was interpreted and the report reviewed and electronically signed by: KALPANA HAMPTON MD on Oct 27 2022 12:14PM EST Thank you for allowing us to participate in the care of your patient. Should there be any questions regarding this interpretation, please call [phone]. If you are unable to reach us at the number above, please feel free to contact [facility] at [phone]. [facility] CT Neck W contrast IVOrdered By: [facility] Provider on 10-27-2022 [facility] Comprehensive metabolic 2000 panelOrdered By: Kelly Goodson on 10-27-2022 Albumin [Mass/Vol] 4.3 g/dL 3.9 - 4.9 g/dL [facility] ALP [Catalytic activity/Vol] 89 U/L 38 - 113 U/L [facility] ALT [Catalytic activity/Vol] 7 U/L Low 10 - 54 U/L [facility] Anion gap [Moles/Vol] 10 mmol/L 9 - 18 mmol/L [facility] AST [Catalytic activity/Vol] 8 U/L Low 14 - 40 U/L [facility] Bilirubin [Mass/Vol] 0.3 mg/dL 0.2 - 1 .3 mg/dL [facility] Calcium [Mass/Vol] 9.6 mg/dL 8.5 - 10. 2 mg/dL [facility] Chloride [Moles/Vol] 104 mmol/L 97 - 10 5 mmol/L [facility] CO2 [Moles/Vol] 27 mmol/L 22 - 30 mmol/L [facility] Creatinine [Mass/Vol] 0.93 mg/dL 0.73 - 1.22 mg/dL [facility] GFR/1.73 sq M.predicted among non-blacks MDRD (S/P/Bld) [Vol rate/Area] 95 mL/min/{1.73_m2} - PINF [facility] Comment on above: Estimated Glomerular Filtration [...] [Mass/Vol] 98 mg/dL 74 - 99 mg/dL [facility] Comment on above: The [place] Diab[employer] Association (ADA) provides guidance for [...] Standards of Medical Care in Diabetes 2016, [place] [employer] Association. Diabetes Care. 2016.39(Suppl 1). Interpretation and review of laboratory results Abnormal [facility] Potassium [Moles/Vol] 4.5 mmol/L 3.7 - 5.1 mmol/L [facility] Protein [Mass/Vol] 6.6 g/dL 6.3 - 8.0 g/dL [facility] [facility] Sodium [Moles/Vol] 141 mmol/L 136 - 144 mmol/L [facility] Urea nitrogen [Mass/Vol] 12 mg/dL 9 - 24 mg/dL [facility] No Panel Informationon 10-27 Radiology Study observation (narrative) [facility] Alanine aminotransferase [En zymatic activity/volume] in Serum or PlasmaOrdered By: Griselda Hastings on 10-24-2022 ALT [Catalytic activity/Vol] 7 U/L 7-52 [facility] Albumin [Mass/volume] in Ser um or Plasma by Bromocresol green (BCG) dye binding methoOrdered By: Griselda Hastings on 10-24-2022 Albumin BCG dye [Mass/Vol] 4.2 g/dL 3.5-5.7 [facility] Alkaline phosphatase [Enzyma tic activity/volume] in Serum or PlasmaOrdered By: Griselda Hastings on 10-24-2022 ALP [Catalytic activity/Vol] 76 U/L 34-104 [facility] Aspartate aminotransferase [ Enzymatic activity/volume] in Serum or PlasmaOrdered By: Griselda Hastings on 10-24-2022 AST [Catalytic activity/Vol] 10 U/L 13-39 [facility] Basophils Auto (Bld) [#/Vol] Ordered By: Griselda Hastings on 10-24-2022 Basophils (Bld) [#/Vol] 0.0 10*3/uL 0.0-0.2 [facility] Basophils/100 WBC Auto (Bld) Ordered By: Griselda Hastings on 10-24-2022 Basophils/100 WBC (Bld) 0.9 % . [facility] Bilirubin.total [Mass/volume ] in Serum or PlasmaOrdered By: Griselda Hsatings on 10-24-2022 Bilirubin [Mass/Vol] 0.4 mg/dL 0.3-1.0 [facility] Calcium [Mass/volume] in Ser um or PlasmaOrdered By: Griselda Hastings on 10-24-2022 Calcium [Mass/Vol] 9.1 mg/dL 8.6-10.3 [facility] Carbon dioxide, total [Moles /volume] in Serum or PlasmaOrdered By: Griselda Hastings on 10-24-2022 CO2 [Moles/Vol] 28.3 mmol/L 21.0-31.0 [facility] Chloride [Moles/volume] in S r[place] or PlasmaOrdered By: Griselda Hastings on 10-24-2022 Chloride [Moles/Vol] 105 mmol/L 98-107 [facility] Cholesterol [Mass/volume] in Serum or PlasmaOrdered By: Griselda Hastings on 10-24-2022 Cholesterol [Mass/Vol] 240 mg/dL 140-200 [facility] Comment on above: Chol less than 200 m g/dl low riskChol 201-239 mg/dl borderline riskChol 240 mg/dl and greater high risk Cholesterol in LDL Calc [Mas s/Vol]Ordered By: Griselda Hastings on 10-24-2022 Cholesterol in LDL [Mass/Vol] 169 mg/dL 0-100 [facility] Comment on above: LDL ATP III CLASSIFI CATIONLDL less than 100 mg/dL OptimalLDL 100-129 mg/dL Near or above optimalLDL 130-159 mg/dL Borderline highLDL 160-189 mg/dL HighLDL greater than 189 mg/dL Very high Cholesterol in VLDL Calc [Ma ss/Vol]Ordered By: Griselda Hastings on 10-24-2022 Cholesterol in VLDL [Mass/Vol] 35 mg/dL [facility] Creatinine [Mass/volume] in Serum or PlasmaOrdered By: Griselda Hastings on 10-24-2022 Creatinine [Mass/Vol] 0.88 mg/dL 0.70-1.30 [facility] Eosinophils Auto (Bld) [#/Vo l]Ordered By: Griselda Hastings on 10-24-2022 Eosinophils (Bld) [#/Vol] 0.1 10*3/uL 0.0-0.45 [facility] Eosinophils/100 WBC Auto (Bl d)Ordered By: Griselda Hastings on 10-24-2022 Eosinophils/100 WBC (Bld) 2.0 % . [facility] Erythrocyte distribution wid th Auto (RBC) [Ratio]Ordered By: Griselda Hastings on 10-24-2022 Erythrocyte distribution width (RBC) [Ratio] 14.7 % 12.0-14.8 [facility] Globulin Calc (S) [Mass/Vol] Ordered By: Griselda Hastings on 10-24-2022 Globulin (S) [Mass/Vol] 2.1 g/dL [facility] Glucose [Mass/volume] in Ser um or PlasmaOrdered By: Griselda Hastings on 10-24-2022 Glucose [Mass/Vol] 82 mg/dL 70-100 [facility] Comment on above: ADA recommended refe rence rangeRandom Glucose Reference Range is dependent on time and content of last meal. Glucose of more than 200 mg/dL in a nonstressed, ambulatory subject supports the diagnosis of Diabetes Mellitus. Hematocrit Auto (Bld) [Volum e fraction]Ordered By: Griselda Hastings on 10-24-2022 Hematocrit (Bld) [Volume fraction] 43.4 % 38.8-50.0 [facility] Hemoglobin [Mass/volume] in BloodOrdered By: Griselda Hastings on 10-24-2022 Hemoglobin (Bld) [Mass/Vol] 14.5 g/dL 13.0-17.0 [facility] Leukocytes [#/volume] correc mone for nucleated erythrocytes in Blood by Automated counOrdered By: Griselda Hastings on 10-24-2022 WBC corrected for nucl RBC Auto (Bld) [#/Vol] 5.0 10*3/uL 4.1-10.5 [facility] Lymphocytes Auto (Bld) [#/Vo l]Ordered By: Griselda Hastings on 10-24-2022 Lymphocytes (Bld) [#/Vol] 2.0 10*3/uL 1.00-4.8 [facility] Lymphocytes/100 WBC Auto (Bl d)Ordered By: Griselda Hastings on 10-24-2022 Lymphocytes/100 WBC (Bld) 39.8 % . [facility] MCH Auto (RBC) [Entitic mass ]Ordered By: Griselda Hastings on 10-24-2022 MCH (RBC) [Entitic mass] 31.5 pg 27.5-35.2 [facility] MCHC Auto (RBC) [Mass/Vol]Or dered By: Griselda Hastings on 10-24-2022 MCHC (RBC) [Mass/Vol] 33.5 g/dL 32.5-35.6 [facility] MCV Auto (RBC) [Entitic vol] Ordered By: Griselda Hastings on 10-24-2022 MCV (RBC) [Entitic vol] 94.0 fL 83.5-101 [facility] Monocytes Auto (Bld) [#/Vol] Ordered By: Griselda Hastings on 10-24-2022 Monocytes (Bld) [#/Vol] 0.3 10*3/uL 0.0-0.8 [facility] Monocytes/100 WBC Auto (Bld) Ordered By: Griselda Hastings on 10-24-2022 Monocytes/100 WBC (Bld) 5.4 % . [facility] Neutrophils Auto (Bld) [#/Vo l]Ordered By: Griselda Hastings on 10-24-2022 Neutrophils (Bld) [#/Vol] 2.6 10*3/uL 1.8-7.7 [facility] Neutrophils/100 WBC Auto (Bl d)Ordered By: Griselda Hastings on 10-24-2022 Neutrophils/100 WBC (Bld) 51.9 % . [facility] No Panel InformationOrdered By: Griselda Hastings on 10-24-2022 Estimated GFR (CKD-EPI) > 60.0 mL/Min [facility] Creatinine Clearance (Chem N/A [facility] Nucleated erythrocytes [Pres ence] in Blood by Automated countOrdered By: Griselda Hastings on 10-24-2022 Nucleated RBC Auto Ql (Bld) 0.1 /100{WBC} 0-0.5 [facility] Platelet mean volume Auto (B ld) [Entitic vol]Ordered By: Griselda Hastings on 10-24-2022 Platelet mean volume (Bld) [Entitic vol] 9.6 fL 6.6-10.1 [facility] Platelets Auto (Bld) [#/Vol] Ordered By: Griselda Hastings on 10-24-2022 Platelets (Bld) [#/Vol] 247 10*3/uL 150-450 [facility] Potassium [Moles/volume] in Serum or PlasmaOrdered By: Griselda Hastings on 10-24-2022 Potassium [Moles/Vol] 4.0 mmol/L 3.5-5.1 [facility] Prostate specific Ag [Mass/v olume] in Serum or PlasmaOrdered By: Griselda Hastings on 10-24-2022 Prostate specific Ag [Mass/Vol] 0.370 ng/mL 0.000-4.00 0 [facility] Protein [Mass/volume] in Ser um or PlasmaOrdered By: Griselda Hastings on 10-24-2022 Protein [Mass/Vol] 6.3 g/dL 6.4-8.9 [facility] RBC Auto (Bld) [#/Vol]Ordere d By: Griselda Hastings on 10-24-2022 RBC (Bld) [#/Vol] 4.61 10*6/uL 3.90-5.60 [facility] Serum or plasma albumin/glob ulin mass ratioOrdered By: Griselda Hastings on 10-24-2022 Albumin/Globulin [Mass ratio] 2.0 {ratio} [facility] Serum or plasma anion gap de terminationOrdered By: Griselda Hastings on 10-24-2022 Anion gap [Moles/Vol] 11.7 mmol/L 6.0-15.0 [facility] Serum or plasma high density lipoprotein (HDL) cholesterol measurementOrdered By: Griselda Hastings on 10-24-2022 Cholesterol in HDL [Mass/Vol] 36 mg/dL 29-71 [facility] Comment on above: HDL CHOL ATP-III CLA SSIFICATION Cardiovascular RiskHDL > or equal to 60 mg/dL LOWHDL < 40 mg/dL HIGH Serum or plasma total choles terol/high density lipoprotein (HDL) cholesterol mass ratOrdered By: Griselda Hastings on 10-24-2022 Cholesterol.total/Chol esterol in HDL [Mass ratio] 6.7 {ratio} <5.0 [facility] Sodium [Moles/volume] in Ser um or PlasmaOrdered By: Griselda Hastings on 10-24-2022 Sodium [Moles/Vol] 141 mmol/L 136-145 [facility] Thyrotropin [Units/volume] i n Serum or PlasmaOrdered By: Griselda Hastings on 10-24-2022 TSH Qn 1.26 m[IU]/L 0.45-5.33 [facility] Triglyceride [Mass/volume] i n Serum or PlasmaOrdered By: Griselda Hastings on 10-24-2022 Triglyceride [Mass/Vol] 175 mg/dL 0-149 [facility] Comment on above: TRIG ATP III CLASSIF ICATIONTRIG less than 150 mg/dL NormalTRIG 150-199 mg/dL Borderline highTRIG 200-500 mg/dL High TRIG greater than 500 mg/dL Very highStandard traceable to the Center for Disease Conrtrol and Prevention (CDC) test method. Urea nitrogen [Mass/volume] in Serum or PlasmaOrdered By: Griselda Hastings on 10-24-2022 Urea nitrogen [Mass/Vol] 15 mg/dL 7-25 [facility] WBC Auto (Bld) [#/Vol]Ordere d By: Griselda Hastings on 10-24-2022 WBC (Bld) [#/Vol] 5.0 10*3/uL 4.1-10.5 [facility] BRIEF OP NOTon 09-28-2022 BRIEF OP NOT HNO ID: [id number] Author: Flores Cat APRN.CNP Service: Interventional Radiology Author Type: Nurse Practitioner Type: Brief Op Note Filed: 09/28/2022 3:14 PM Note Text: BRIEF OPERATIVE / PROCEDURE NOTE LOG ID: [id number] SURGERY/PROCEDURE DATE: 09/28/2022 INCISION/PROCEDURE START TIME: 1:58 PM INCISION CLOSE/PROCEDURE END TIME: 2:27 PM SURGEON(S)/PROCEDURALIST( S) AND REHAB THERAPY MANAGER(S): Surgeon(s) and Role: * Flores Cat APRN.DAIRY AND FOOD LABORATORY ASSISTANT - Primary No Additional Staff SURGERY/PROCEDURE(S): LP [...] DIAGNOSIS: Same as Preop SIGNATURE: Flores Cat APRN.DAIRY AND FOOD LABORATORY ASSISTANT PATIENT NAME: Shantel Melendez DATE: September 28, 2022 TIME: 3:10 PM [facility] IR LUMBAR PUNCTURE DIAGon IR LUMBAR PUNCTURE DIAG * * *Final Report* * * DATE OF EXAM: Sep 28 2022 2:41PM DENI [id number] - IR LUMBAR PUNCTURE DIAG / [...] guidance was performed in conjunction with the quality control engineering technician. Plane A, Air Kerma: 20.0 mGy Dose Area Product (DAP): 48303.1 mGy*cm2 Fluoro time: 3:54 min: sec Post-Procedure: [...] procedure was performed by: Flores Cat APRN.CNP Communications Professor: HARPER Transcribe Date/Time: Sep 28 2022 3:15P Dictated by : FLORES CAT CNP This examination was interpreted and the report reviewed and electronically signed by: FLORES CAT CNP on Sep 28 2022 3:22PM EST [id number] [facility] NURSING PROGon 09-28-2022 NURSING PROG HNO ID: [id number] Author: Court Magana RN Service: Nursing Author Type: Registered Nurse Type: Nursing Progress Note Filed: 09/28/2022 1:09 PM Note Text: PATIENT EDUCATION TOPIC: PROCEDURE / SURGERY: Pre Procedure Teaching: LP Post Procedure Teaching: LP PATIENT NAME: Shantel Melendez PATIENT LOCATION: INTERVENTIONAL RADIOL* READINESS TO [...] Provider Electronically Signed By: Shellieluisito Magana Normal [facility] MRI BRAIN WO/W IVCONon 09-22 [facility] COVID + FLU Quick Testingon 08-01-2022 SARS-CoV-2 (COVID-19) RNA JER+probe Ql (Unsp spec) Negative [employer] [facility] [employer] Other COVID + FLU Quick Testing neagative [employer] [facility] [employer] Other COVID + FLU Quick Testing Negative [employer] Other RSVon 08-01-2022 RSV Ag IA Ql (Unsp spec) Positive [employer] Other Cerebrospinal fluid post-valdez trifugation appearance determinationOrdered By: Oziel Cadena on 07-17-2022 Appearance (Spun CSF) Colorless Colorless [facility] Cerebrospinal fluid sample t ube volume measurementOrdered By: Oziel Cadena on 07-17-2022 Specimen volume (CSF) 22.[address] [facility] Color CSFOrdered By: Oziel Cadena on 07-17-2022 Color (CSF) Colorless Colorless [facility] Manual cerebrospinal fluid e rythrocytes count (number/volume)Ordered By: Oziel Cadena on 07-17-2022 RBC Manual cnt (CSF) [#/Vol] 0 /uL [facility] Comment on above: The reference interv al and other method performance specifications have not been established for this body fluid. The test result must be integrated into the clinical context for interpretation. No Panel InformationOrdered By: Oziel Cadena on 07-17-2022 CSF Appearance Clear Clear [facility] CSF Tube Number Tube number: 1 [facility] Nucleated cells [#/volume] i n Cerebral spinal fluid by Manual countOrdered By: Oziel Cadena on 07-17-2022 Nucleated cells Manual cnt (CSF) [#/Vol] 0.003 10*3/uL 0-5 [facility] Activated partial thrombopla stin time (aPTT) in platelet poor plasma by coagulation aOrdered By: Loi Wong on 04-16-2022 aPTT Coag (PPP) [Time] 32.8 s 25.1-36.5 [facility] Basophils Auto (Bld) [#/Vol] Ordered By: Loi Wong on 04-16-2022 Basophils (Bld) [#/Vol] 0.1 10*3/uL 0.0-0.2 [facility] Basophils/100 WBC Auto (Bld) Ordered By: Loi Wogn on 04-16-2022 Basophils/100 WBC (Bld) 1.2 % . [facility] Creatine kinase [Enzymatic a ctivity/volume] in Serum or PlasmaOrdered By: Loi Wong on 04-16-2022 CK [Catalytic activity/Vol] 69 U/L 22-269 [facility] Creatinine and Glomerular fi ltration rate.predicted panel (S/P/Bld)Ordered By: Loi Wong on 04-16-2022 Creatinine [Mass/Vol] 0.97 mg/dL 0.64-1.27 [facility] Eosinophils Auto (Bld) [#/Vo l]Ordered By: Loi Wong on 04-16-2022 Eosinophils (Bld) [#/Vol] 0.1 10*3/uL 0.0-0.45 [facility] Eosinophils/100 WBC Auto (Bl d)Ordered By: Loi Wong on 04-16-2022 Eosinophils/100 WBC (Bld) 1.2 % . [facility] Erythrocyte distribution wid th Auto (RBC) [Ratio]Ordered By: Loi Wong on 04-16-2022 Erythrocyte distribution width (RBC) [Ratio] 14.1 % 12.0-14.8 [facility] Estimated glomerular filtrat ion rate (GFR) non- AmericanOrdered By: Loi Wong on 04-16-2022 GFR/1.73 sq M.predicted among non-blacks MDRD (S/P/Bld) [Vol rate/Area] > 60 mL/Min [facility] Hematocrit Auto (Bld) [Volum e fraction]Ordered By: Loi Wong on 04-16-2022 Hematocrit (Bld) [Volume fraction] 43.2 % 38.8-50.0 [facility] Hemoglobin [Mass/volume] in BloodOrdered By: Loi Wong on 04-16-2022 Hemoglobin (Bld) [Mass/Vol] 14.7 g/dL 13.0-17.0 [facility] - Chemistry and C hemistry - challengeOrdered By: Loi Wong on 04-16-2022 Natriuretic peptide B (Bld) [Mass/Vol] 29.0 pg/mL 5-100 [facility] - CoagulationOrde red By: Loi Wong on 04-16-2022 PT Coag (PPP) [Time] 12.0 s 9.0-12.9 [facility] - Hematology and Cell countsOrdered By: Loi Wong on 04-16-2022 Nucleated RBC/100 WBC (Bld) [Ratio] 0.1 % 0-0.5 [facility] Leukocytes [#/volume] in Blo od by Automated countOrdered By: Loi Wong on 04-16-2022 WBC (Bld) [#/Vol] 7.7 10*3/uL 4.5-11.0 [facility] Lymphocytes Auto (Bld) [#/Vo l]Ordered By: Loi Wong on 04-16-2022 Lymphocytes (Bld) [#/Vol] 2.3 10*3/uL 1.00-4.8 [facility] Lymphocytes/100 WBC Auto (Bl d)Ordered By: Loi Wong on 04-16-2022 Lymphocytes/100 WBC (Bld) 29.4 % . [facility] MCH Auto (RBC) [Entitic mass ]Ordered By: Loi Wong on 04-16-2022 MCH (RBC) [Entitic mass] 32.0 pg 27.5-35.2 [facility] MCHC Auto (RBC) [Mass/Vol]Or dered By: Loi Wong on 04-16-2022 MCHC (RBC) [Mass/Vol] 34.0 g/dL 32.5-35.6 [facility] MCV Auto (RBC) [Entitic vol] Ordered By: Loi Wong on 04-16-2022 MCV (RBC) [Entitic vol] 94.0 fL 83.5-101 [facility] Monocytes Auto (Bld) [#/Vol] Ordered By: Loi Wong on 04-16-2022 Monocytes (Bld) [#/Vol] 0.6 10*3/uL 0.0-0.8 [facility] Monocytes/100 WBC Auto (Bld) Ordered By: Loi Wong on 04-16-2022 Monocytes/100 WBC (Bld) 7.7 % . [facility] Neutrophils Auto (Bld) [#/Vo l]Ordered By: Loi Wong on 04-16-2022 Neutrophils (Bld) [#/Vol] 4.7 10*3/uL 1.8-7.7 [facility] Neutrophils/100 WBC Auto (Bl d)Ordered By: Loi Wong on 04-16-2022 Neutrophils/100 WBC (Bld) 60.5 % . [facility] No Panel InformationOrdered By: Loi Wong on 04-16-2022 D-Dimer Quantitative (PE/DVT) < 200 ng/mL 0-243 [facility] Comment on above: The reference range [...] conditions. Estimated GFR () > 60 mL/Min [facility] Comment on above: GFR estimated refere nce range: According to KDOQI guidelines, <60 ml/min/1.73m2 is sufficient to diagnose a patient with chronic kidney disease. Pharmacy Creatinine Clearance (Chem 79.33 [facility] Platelet mean volume Auto (B ld) [Entitic vol]Ordered By: Loi Wong on 04-16-2022 Platelet mean volume (Bld) [Entitic vol] 9.7 fL 6.6-10.1 [facility] Platelet poor plasma interna tional normalized ratio (INR) by coagulation assay (relatOrdered By: Loi Wong on 04-16-2022 INR Coag (PPP) [Relative time] 1.1 {INR} [facility] Comment on above: INR Therapeutic Rang [...] 04-16-2022 Platelets (Bld) [#/Vol] 238 10*3/uL 150-450 [facility] RBC Auto (Bld) [#/Vol]Ordere d By: Loi Wong on 04-16-2022 RBC (Bld) [#/Vol] 4.59 10*6/uL 3.90-5.60 [facility] Serum or plasma anion gap de terminationOrdered By: Loi Wong on 04-16-2022 Anion gap [Moles/Vol] 12.4 mmol/L 6.0-15.0 [facility] Serum or plasma calcium paramjit urement (mass/volume)Ordered By: Loi Wong on 04-16-2022 Calcium [Mass/Vol] 9.0 mg/dL 8.2-10.2 [facility] Serum or plasma chloride robby surement (moles/volume)Ordered By: Loi Wong on 04-16-2022 Chloride [Moles/Vol] 103 mmol/L 95-114 [facility] Serum or plasma creatine kin ase MB (CKMB)/total creatine kinase (CK) ratio by calculaOrdered By: Loi Wong on 04-16-2022 CK.MB Calc [Catalytic fraction] 2.0 % 0.00-2.50 [facility] Serum or plasma creatine kin ase MB measurement (mass/volume)Ordered By: Loi Wong on 04-16-2022 CK.MB [Mass/Vol] 1.4 ng/mL 0.6-6.3 [facility] Serum or plasma glucose paramjit urement (mass/volume)Ordered By: Loi Wong on 04-16-2022 Glucose [Mass/Vol] 88 mg/dL 70-100 [facility] Comment on above: ADA recommended refe rence rangeRandom Glucose Reference Range is dependent on time and content of last meal. Glucose of more than 200 mg/dL in a nonstressed, ambulatory subject supports the diagnosis of Diabetes Mellitus. Serum or plasma potassium me asurement (moles/volume)Ordered By: Loi Wong on 04-16-2022 Potassium [Moles/Vol] 4.3 mmol/L 3.5-5.1 [facility] Serum or plasma sodium measu rement (moles/volume)Ordered By: Loi Wong on 04-16-2022 Sodium [Moles/Vol] 135 mmol/L 136-146 [facility] Serum or plasma total carbon dioxide measurement (moles/volume)Ordered By: Loi Wong on 04-16-2022 CO2 [Moles/Vol] 23.9 mmol/L 22.0-30.0 [facility] Serum or plasma urea nitroge n measurement (mass/volume)Ordered By: Loi Wong on 04-16-2022 Urea nitrogen [Mass/Vol] 12 mg/dL 03-10 [facility] Troponin I.cardiac [Mass/vol ume] in Serum or Plasma by High sensitivity methodOrdered By: Loi Wong on 04-16-2022 Troponin I.cardiac High sensitivity method [Mass/Vol] 5 pg/mL 0- [facility] COVID Quick Testingon 2021 Result Negative [employer] Other Quick Fluon 03-16-2022 FLUAV Ab CF (S) [Titer] Negative [employer] Other FLUBV Ab CF (S) [Titer] Negative [employer] Other MRI Brain w/o + w/on 022 [...] by Jillian Morales on 01/18/2022 1413 Normal [facility] Cell Count + Differential, C on 11-07-2021 WBC (Bld) [#/Vol] 0.006 10*3/uL above high threshold 0 - 5 [facility] Work Phone: [phone] Cell Count + Differential, CSF 70 1 [facility] [employer] Work Phone: [phone] Cell Count + Differential, CSF 10 % [facility] Work Phone: [phone] Cell Count + Differential, CSF 60 % [facility] Work Phone: [phone] Cell Count + Differential, CSF 30 % [facility] Work Phone: [phone] Cell Count + Differential, CSF Colorless COLORLESS [facility] Work Phone: [phone] Cell Count + Differential, CSF 245 /uL above high threshold 0 - 5 [facility] Work Phone: [phone] Cell Count + [...] Phone: [phone] Albumin [Mass/Vol] 4578 mg/dL [phone] [facility] [employer] Work Phone: [phone] IgG (CSF) [Mass/Vol] 2.2 mg/dL 0.0-6.0 [facility] Work Phone: [phone] IgG [Mass/Vol] 496 mg/dL below low threshold [phone] [facility] Work Phone: [phone] Comment on above: REFERENCE INTERVAL: Immunoglobulin GAccess complete set of age- and/or gender-specific reference intervals for this test in the [facility] Test Directory ([facility]). IgG clearance/Albumin clearance (S+CSF) [Ratio] 0.56 {ratio} [...] sclerosis will have a negative result.Performed By: [employer] [place] [id number] Director: Paula Middleton MD Albumin (CSF) [Mass/Vol] Canceled [facility] Work Phone: [phone] Albumin [Mass/Vol] Canceled [facility] [employer] Work Phone: [phone] Glucose (CSF) [Mass/Vol] 56 mg/dL 40 - 70 [facility] Work Phone: [phone] IgG (CSF) [Mass/Vol] Canceled [facility] [employer] Work Phone: [phone] IgG [Mass/Vol] Canceled [facility] Work Phone: [phone] IgG clearance/Albumin clearance (S+CSF) [Ratio] Canceled [facility] Work Phone: [phone] IgG synthesis rate Calc (S+CSF) [Mass/Time] Canceled [facility] Work Phone: [phone] IgG/Albumin (CSF) [Mass ratio] Canceled [facility] Work Phone: [phone] Oligoclonal bands Elph (CSF) [Interp] Canceled [facility] Work Phone: Oligoclonal bands Elph Curtis (CSF) [Interp] Canceled [facility] Work Phone: Protein (CSF) [Mass/Vol] 66 mg/dL above high threshold 15 - 45 [facility] Work Phone: No Panel Informationon 11-07 0 {Bands} 0-1 [facility] Work Phone: [facility] Work Phone: [phone] Canceled [facility] Work Phone: Path [...] a) No falls within the last year [facility] Work Phone: Tobacco use status [facility] a) Yes [facility] Work Phone: Blood Pressure Cuff Size Adult [facility] Work Phone: Initial Visit (Neurosurgery) on 11-03-2021 Initial Visit (Neurosurgery) Diagnoses/Problems Weight loss (783.21) (R63.4) Anxiety (300.00) (F41.9) Depression (311) (F32.A) History of high cholesterol (V12.29) (Z86.39) 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 In [...] He saw Dr. Ba a neurologist in [facility]. He describes his vision as seeing [...] MG Oral Tablet Vitals Vital Signs Recorded: [id number] 09:38AM Flgtlavcyak23.2 F Heart Rate63 Pivvwvwxmbf92 Sdepcslq717 Odctcipqc80 Blood Pressure Cuff SizeAdult Height5 ft 7.13 in Qxjzgg096 lb 6 oz BMI Jleagbqrpj27.05 kg/m2 BSA Calculated1.91 Tobacco Usea) Yes Fall Screeninga) No falls within the last year O2 Utqypahfca59 Pain Scale7 Physical Exam Constitutional - General appearance: No acute distress, well de (more content not included)... 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 In [...] He saw Dr. Ba a neurologist in [facility]. He describes his vision as seeing [...] MG Oral Tablet Vitals Vital Signs Recorded: [id number] 09:38AM Iqccvljfuwh38.2 F Heart Rate63 Nixdmuoupqa09 Baaglrrh873 Gditapjxq38 Blood Pressure Cuff SizeAdult Height5 ft 7.13 in Xftmax032 lb 6 oz BMI Mqolvdihjc02.05 kg/m2 BSA Calculated1.91 Tobacco Usea) Yes Fall Screeninga) No falls within the last year O2 Jemndppzay71 Pain Scale7 Ph (more content not included)... Normal [employer] CBC W Auto Differential pane l (Bld)on 10-06-2021 Basophils (Bld) [#/Vol] 0.06 10*3/uL [facility] Basophils/100 WBC (Bld) 0.8 % [facility] Differential cell count method Nom (Bld) Auto [facility] Eosinophils (Bld) [#/Vol] 0.11 10*3/uL [facility] Eosinophils/100 WBC (Bld) 1.5 % [facility] Erythrocyte distribution width (RBC) [Ratio] 12.8 % 11.5 - 15.0 % [facility] Hematocrit (Bld) [Volume fraction] 43.7 % 39.0 - 51.0 % [facility] Hemoglobin (Bld) [Mass/Vol] 14.6 g/dL 13.0 - 17.0 g/dL [facility] Immature granulocytes (Bld) [#/Vol] [facility] Immature granulocytes/100 WBC (Bld) 0.3 % [facility] Lymphocytes (Bld) [#/Vol] 1.75 10*3/uL [facility] Lymphocytes/100 WBC (Bld) 23.7 % [facility] MCH (RBC) [Entitic mass] 32.7 pg 26.0 - 34.0 pg [facility] MCHC (RBC) [Mass/Vol] 33.4 g/dL 30.5 - 36.0 g/dL [facility] MCV (RBC) [Entitic vol] 98.0 fL 80.0 - 100.0 fL [facility] Monocytes (Bld) [#/Vol] 0.52 10*3/uL NINF [facility] Monocytes/100 WBC (Bld) 7.0 % [facility] Neutrophils (Bld) [#/Vol] 4.92 10*3/uL [facility] Neutrophils/100 WBC (Bld) 66.7 % [facility] Nucleated RBC (Bld) [#/Vol] NINF [facility] Nucleated RBC/100 WBC (Bld) [Ratio] 0.0 % /100 WBC [facility] Platelet mean volume (Bld) [Entitic vol] 10.8 fL 9.0 - 12.7 fL [facility] Platelets (Bld) [#/Vol] 246 10*3/uL [facility] RBC (Bld) [#/Vol] 4.46 10*6/uL 4.20 - 6.00 m/uL [facility] WBC (Bld) [#/Vol] 7.38 10*3/uL [facility] This is an appended report. These results have been appended to a previously verified report. [facility] CT Chest W contrast Tristin IMPRESSION: [...] any questions regarding this interpretation, please call [phone]. If you are unable to reach us at the number above, please feel free to contact [facility] eRadiology at [phone]. ZZZ_DO_NOT_US E_DIVISION OF RADIOLOGY * * *Final Report* * * DATE OF EXAM: Oct 06 2021 8:22AM [facility] 0539 - CT CHEST W [...] images through the upper abdomen appear stable. Vice President Education (topogram) images: No additional findings. FlorentinZZ_DO_NOT_US E_DIVISION OF RADIOLOGY Provider, [facility] Emilia [facility] - 10/06/2021 * * *Final Report* * * DATE OF EXAM: Oct 06 2021 8:22AM [facility] 0539 - CT CHEST W [...] images through the upper abdomen appear stable. Vice President Education (topogram) images: No additional findings. IMPRESSION IMPRESSION: [...] any questions regarding this interpretation, please call [phone]. If you are unable to reach us at the number above, please feel free to contact [facility] eRadiology at [phone]. [facility] CT Neck W contrast Tristin 04-2 [...] any questions regarding this interpretation, please call [phone]. If you are unable to reach us at the number above, please feel free to contact [facility] eRadiology at [phone]. ZZZ_DO_NOT_US E_DIVISION OF RADIOLOGY * * *Final Report* * * DATE OF EXAM: Oct 06 2021 8:22AM [facility] 0013 - CT NECK SOFT [...] siphons. ZZZ_DO_NOT_US E_DIVISION OF RADIOLOGY Provider, Dacia Jansenbishnu villagomez [place] - 10/06/2021 * * *Final Report* * * DATE OF EXAM: Oct 06 2021 8:22AM [facility] 0013 - CT NECK SOFT [...] any questions regarding this interpretation, please call [phone]. If you are unable to reach us at the number above, please feel free to contact [facility] eRadiology at [phone]. [facility] CT Neck W contrast IVOrdered By: [facility]cf Provider on 10-06-2021 [facility] metabolic 2000 panelOrdered By: Micheal Vizcaino on 10-06-2021 Albumin [Mass/Vol] 4.5 g/dL 3.9 - 4.9 g/dL [facility] ALP [Catalytic activity/Vol] 82 U/L 38 - 113 U/L [facility] ALT [Catalytic activity/Vol] 25 U/L 10 - 54 U/L [facility] Anion gap [Moles/Vol] 10 mmol/L 9 - 18 mmol/L [facility] AST [Catalytic activity/Vol] 21 U/L 14 - 40 U/L [facility] Bilirubin [Mass/Vol] 0.6 mg/dL 0.2 - 1 .3 mg/dL [facility] Calcium [Mass/Vol] 9.5 mg/dL 8.5 - 10. 2 mg/dL [facility] Chloride [Moles/Vol] 106 mmol/L High 97 - 10 5 mmol/L [facility] CO2 [Moles/Vol] 29 mmol/L 22 - 30 mmol/L [facility] Creatinine [Mass/Vol] 1.01 mg/dL 0.73 - 1.22 mg/dL [facility] GFR/1.73 sq M.predicted among non-blacks MDRD (S/P/Bld) [Vol rate/Area] 86 mL/min/{1.73_m2} - PINF [facility] Comment on above: Estimated Glomerular Filtration [...] 107 mg/dL High 74 - 99 mg/dL [facility] Comment on above: The [place] Diabete s Association (ADA) provides guidance for [...] Standards of Medical Care in Diabetes 2016, [place] Diabetes Association. Diabetes Care. 2016.39(Suppl 1). Interpretation and review of laboratory results Abnormal [facility] Potassium [Moles/Vol] 4.2 mmol/L 3.7 - 5.1 mmol/L [facility] Protein [Mass/Vol] 6.5 g/dL 6.3 - 8.0 g/dL [facility] Sodium [Moles/Vol] 145 mmol/L High 136 - 144 mmol/L [facility] Urea nitrogen [Mass/Vol] 10 mg/dL 9 - 24 mg/dL [facility] No Panel Informationon 10-06 Radiology Study observation (narrative) [facility] COVID + FLU Quick Testingon 06-30-2021 SARS-CoV-2 (COVID-19) RNA JER+probe Ql (Unsp spec) Negative [facility] Other COVID + FLU Quick Testing Negative [facility] Other COVID Quick Testingon 2020 Result Negative [facility] Other Basophils Auto (Bld) [#/Vol] on 09-20-2020 Basophils (Bld) [#/Vol] 0.0 10*3/uL 0.0-0.2 [place] Basophils/100 WBC Auto (Bld) on 09-20-2020 Basophils/100 WBC (Bld) 0.6 % [place] Blood hemoglobin measurement (mass/volume)on 09-20-2020 Hemoglobin (Bld) [Mass/Vol] 14.4 g/dL 13.0-17.0 [place] Blood leukocytes automated c ount (number/volume)on 09-20-2020 WBC (Bld) [#/Vol] 7.4 10*3/uL 4.5-11.[address] [facility] Eosinophils Auto (Bld) [#/Vo l]on 09-20-2020 Eosinophils (Bld) [#/Vol] 0.1 10*3/uL 0.0-0.45 [place] Eosinophils/100 WBC Auto (Bl d)on 09-20-2020 Eosinophils/100 WBC (Bld) 0.9 % [place] Erythrocyte distribution wid th Auto (RBC) [Ratio]on 09-20-2020 Erythrocyte distribution width (RBC) [Ratio] 14.6 % 12.0-14.8 [place] Hematocrit Auto (Bld) [Volum e fraction]on 09-20-2020 Hematocrit (Bld) [Volume fraction] 41.7 % 38.8-50.0 [place] Lymphocytes Auto (Bld) [#/Vo l]on 09-20-2020 Lymphocytes (Bld) [#/Vol] 1.6 10*3/uL 1.00-4.8 [place] Lymphocytes/100 WBC Auto (Bl d)on 09-20-2020 Lymphocytes/100 WBC (Bld) 21.3 % [place] MCH Auto (RBC) [Entitic mass ]on 09-20-2020 MCH (RBC) [Entitic mass] 32.4 pg 27.5-35.2 [place] MCHC Auto (RBC) [Mass/Vol]on 09-20-2020 MCHC (RBC) [Mass/Vol] 34.5 g/dL 32.5-35.6 [facility] MCV Auto (RBC) [Entitic vol] on 09-20-2020 MCV (RBC) [Entitic vol] 93.9 fL 83.5-101 [place] Monocytes Auto (Bld) [#/Vol] on 09-20-2020 Monocytes (Bld) [#/Vol] 0.6 10*3/uL 0.0-0.8 [place] Monocytes/100 WBC Auto (Bld) on 09-20-2020 Monocytes/100 WBC (Bld) 8.6 % [place] Neutrophils Auto (Bld) [#/Vo l]on 09-20-2020 Neutrophils (Bld) [#/Vol] 5.1 10*3/uL 1.8-7.7 [place] Neutrophils/100 WBC Auto (Bl d)on 09-20-2020 Neutrophils/100 WBC (Bld) 68.6 % [place] Otheron 09-20-2020 Nucleated RBC/100 WBC (Bld) [Ratio] 0.0 % 0-0.5 [place] Platelet mean volume Auto (B ld) [Entitic vol]on 09-20-2020 Platelet mean volume (Bld) [Entitic vol] 9.3 fL 6.6-10.1 [place] Platelets Auto (Bld) [#/Vol] on 09-20-2020 Platelets (Bld) [#/Vol] 182 10*3/uL 150-450 [place] RBC Auto (Bld) [#/Vol]on RBC (Bld) [#/Vol] 4.44 10*6/uL 3.90-5.60 [facility] Body fluid albumin measureme nt (mass/volume)on 09-13-2020 Albumin (Body fld) [Mass/Vol] 4.3 g/dL 3.2-5.5 [place] Cholesterol [Mass/volume] in Serum or Plasmaon 09-13-2020 Cholesterol [Mass/Vol] 219 mg/dL 140-200 [facility] Comment on above: Chol less than 200 m g/dl low riskChol 201-239 mg/dl borderline riskChol 240 mg/dl and greater high risk Cholesterol in LDL Calc [Mas s/Vol]on 09-13-2020 Cholesterol in LDL [Mass/Vol] 149 mg/dL 0-100 [place] Comment on above: LDL ATP III CLASSIFI CATIONLDL less than 100 mg/dL OptimalLDL 100-129 mg/dL Near or above optimalLDL 130-159 mg/dL Borderline highLDL 160-189 mg/dL HighLDL greater than 189 mg/dL Very high Cholesterol in VLDL Calc [Ma ss/Vol]on 09-13-2020 Cholesterol in VLDL [Mass/Vol] 28 mg/dL [place] Creatinine and Glomerular fi ltration rate.predicted panel (S/P/Bld)on 09-13-2020 Creatinine [Mass/Vol] 0.89 mg/dL 0.64-1.27 [facility] GFR/1.73 sq M.predicted roverto g non-blacks MDRD (S/P/Bld) [Vol rate/Area]on 09-13-2020 GFR/1.73 sq M predicted among non-blacks MDRD (S/P/Bld) [Vol rate/Area] > 60 mL/Min [place] Globulin Calc (S) [Mass/Vol] on 09-13-2020 Globulin (S) [Mass/Vol] 2.0 g/dL [place] No Panel Informationon 09-13 Estimated GFR () > 60 mL/Min [place] Comment on above: GFR estimated refere nce range: According to KDOQI guidelines, <60 ml/min/1.73m2 is sufficient to diagnose a patient with chronic kidney disease. Otheron 09-13-2020 GFR/1.73 sq M.predicted MDRD (S/P/Bld) [Vol rate/Area] > 60 mL/Min [place] Comment on above: GFR estimated refere nce range: According to KDOQI guidelines, <60 ml/min/1.73m2 is sufficient to diagnose a patient with chronic kidney disease. Pharmacy Creatinine Clearance (Chem N/A [place] Prostate Specific Antigen Screen 0.480 ng/mL 0.000-4.00 0 [place] Protein [Mass/volume] in Ser um or Plasmaon 09-13-2020 Protein [Mass/Vol] 6.3 g/dL 6.1-7.[address] [facility] SARS-CoV-2 (COVID-19) IgG Ab [Presence] in Serum or Plasma by Immunoassayon 09-13-2020 SARS-CoV-2 (COVID-19) IgG Ab [Presence] in Serum or Plasma by Immunoassay Positive Negative [place] Comment on above: Results suggest rece nt or prior infection with SARS-CoV-2.Correlation with epidemiologic risk factors and otherclinical and laboratory findings is recommended. Serologicresults should not be used as the sole basis to diagnose orexclude recent SARS-CoV-2 infection. False positive resultsinfrequently occur due to prior infection with other humanCoronaviruses.This assay was performed using the [employer](R)SARS-CoV-2 S1/S2 IgG assay.This assay detects antibodies against SARS-CoV-2 spikeprotein including the receptor binding domain (RBD).Performed at: [address] [id number] Director: Florencio Wu PhD, Phone: [phone] SARS-CoV-2 (COVID-19) IgG IA Ql Positive Negative [place] Comment on above: Results suggest rece nt or prior infection with SARS-CoV-2.Correlation with epidemiologic risk factors and otherclinical and laboratory findings is recommended. Serologicresults should not be used as the sole basis to diagnose orexclude recent SARS-CoV-2 infection. False positive resultsinfrequently occur due to prior infection with other humanCoronaviruses.This assay was performed using the [employer](R)SARS-CoV-2 S1/S2 IgG assay.This assay detects antibodies against SARS-CoV-2 spikeprotein including the receptor binding domain (RBD).Performed at: [facility] [employer] Director: Florencio Wu PhD, Phone: [phone] Serum or plasma alanine mclaughlin otransferase measurement without P-5'-P (enzymatic activion 09-13-2020 ALT No additional P-5'-P [Catalytic activity/Vol] 19 U/L 10-60 [place] Serum or plasma albumin/glob ulin mass ratioon 09-13-2020 Albumin/Globulin [Mass ratio] 2.2 {ratio} [place] Serum or plasma alkaline fuentes sphatase measurement (enzymatic activity/volume)on 09-13-2020 ALP [Catalytic activity/Vol] 53 U/L 32-92 [place] Serum or plasma aspartate am inotransferase measurement (enzymatic activity/volume)on 09-13-2020 AST [Catalytic activity/Vol] 22 U/L 10-42 [place] Serum or plasma calcium paramjit urement (mass/volume)on 09-13-2020 Calcium [Mass/Vol] 9.1 mg/dL 8.2-10.[address] [facility] Serum or plasma chloride robby surement (moles/volume)on 09-13-2020 Chloride [Moles/Vol] 105 mmol/L 95-114 [facility] Serum or plasma glucose paramjit urement (mass/volume)on 09-13-2020 Glucose [Mass/Vol] 97 mg/dL 70-[address] [facility] Comment on above: ADA recommended refe rence rangeRandom Glucose Reference Range is dependent on time and content of last meal. Glucose of more than 200 mg/dL in a nonstressed, ambulatory subject supports the diagnosis of Diabetes Mellitus. Serum or plasma high density lipoprotein (HDL) cholesterol measurementon 09-13-2020 Cholesterol in HDL [Mass/Vol] 41 mg/dL [place] Comment on above: HDL CHOL ATP-III CLA SSIFICATION Cardiovascular RiskHDL > or equal to 60 mg/dL LOWHDL < 40 mg/dL HIGH Serum or plasma potassium me asurement (moles/volume)on 09-13-2020 Potassium [Moles/Vol] 4.2 mmol/L 3.5-5.1 [facility] Serum or plasma sodium measu rement (moles/volume)on 09-13-2020 Sodium [Moles/Vol] 135 mmol/L 136-[address] [facility] Serum or plasma thyroid stim ulating hormone (TSH) measurement by high sensitivity meton 09-13-2020 TSH Qn 1.66 u[iU]/mL 0.45-5.33 [place] Serum or plasma total biliru bin measurement (mass/volume)on 09-13-2020 Bilirubin [Mass/Vol] 0.9 mg/dL 0.3-1.2 [facility] Serum or plasma total carbon dioxide measurement (moles/volume)on 09-13-2020 CO2 [Moles/Vol] 22.5 mmol/L 22.0-30.0 [facility] Serum or plasma total choles terol/high density lipoprotein (HDL) cholesterol mass gia 09-13-2020 Cholesterol.total/Chol esterol in HDL [Mass ratio] 5.3 {ratio} [place] Serum or plasma urea nitroge n measurement (mass/volume)on 09-13-2020 Urea nitrogen [Mass/Vol] 12 mg/dL 9-23 [place] TSH DL <= 0.005 mIU/L Qnon 0 09-13-2020 TSH Qn 1.66 m[IU]/L 0.45-5.33 [place] Triglyceride [Mass/volume] i n Serum or Plasmaon 09-13-2020 Triglyceride [Mass/Vol] 144 mg/dL 35-149 [place] Comment on above: TRIG ATP III CLASSIF [...] Cataract extraction with lens implantation, left eye. Lux Benito Dictated: 04/14/2019 #[id number] Typed 04/14/2019 #[id number] cc: Coleen Grajeda M.D. [facility] Comment on above: Result Comment: Elec tronically Signed By: Coleen Grajeda MDbr\Date and Time Signed: 04/18/19 09:54 EDT Operative [...] and inferior fornices of the eye. A [employer] manometer was set on the eye at [...] condition. Coleen Grajeda M.D. gls Dictated: 04/14/2019 #[id number] Typed: 04/15/2019 #[id number] cc: Coleen Grajeda M.D. [facility] Comment on above: Result Comment: Elec tronically Signed By: Coleen Grajeda MD\.br\Date and Time Signed: 04/18/19 09:54 EDT Coding Summary.on 04-15-2019 Coding Summary. 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 Name: SHANTEL MELENDEZ /Sex: 1960 Male Med Rec #: [id number] Physician: Coleen Grajeda MD Financial #: [id number] Pt. Type: A Room/Bed: [place] [address] Admit/Disch: 04/14/19 12:59:00 - 04/14/19 16:00:00 Institution: [...] Performed Surgeon - Primary Scrub - Primary Quality Consultant - Primary Time In 04/14/19 14:55:00 04/14/19 14:55:00 04/14/19 15:00:00 Time Out 04/14/19 15:17:00 04/14/19 15:17:00 04/14/19 15:17:00 Procedure CATARACT EXTRACTION W/ CATARACT EXTRACTION W/ CATARACT EXTRACTION W/ INTRAOCULAR LENS(Left) INTRAOCULAR LENS(Left) INTRAOCULAR LENS(Left) Comments Last Modified By: Sachi RN, Johnathon Karimi RN, Johnathon Hurtado RN 04/14/19 15:16:27 04/14/19 15:16:27 04/14/19 15:16:27 Entry 4 Entry 5 Case Attendee Omar VERNON, Pauly GOODEN, RN, Tierra Role Performed Quality Consultant - Primary Quality Consultant - Relief Time In 04/14/19 14:55:00 [...] Given Participants Asya Alves CST, Tinker RN, Kail M, Crosby RN, Pauly Da Silva Time Out Complete [...] Unable to Visualize, Outcomes Met? Yes Warm, [place], Dry Last Modified By: Johnathon Karimi RN [...] RN Patient Status Stable Skin. 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 please see scanned medication reconcilliation form for medications used at the field during the procedure. Implant Log FT Pre-Care Text: Records devices implanted during the operative or invasive procedure Entry 1 Procedure CATARACT EXTRACTION W/ Implant/Explant Implant INTRAOCULAR LENS(Left) Implant Identification FT Description MONTY [employer]OL [id number] [employer] Serial Number [id number] SIZE 21.0 [[id number] 21.0][F] Lot Number [id number] [employer] Catalog ?# [id number] 21.0[F] Expiration Date 10/16/23 Unique Device [id number] Identifier (BERNARD) Usage Data FT Implant Site [...] 15:16 Asya Alves CST 04/15/19 14:44 Normal [facility] Inpatient Patient Summaryon 04-14-2019 Inpatient Patient Summary [facility] Clinical Discharge Instructions PERSON INFORMATION Name: SHANTEL MELENDEZ PHYSICIANS Admitting Physician: Coleen Grajeda MD Attending Physician: Coleen Grajeda MD PCP: JILLIAN BARONE DO Discharge Diagnosis: Cataract Comment: PATIENT EDUCATION INFORMATION Instructions: Medication Leaflets: Follow up: With: Address: When: [facility] [address] [place] [id number] Business (1) Comments: Call physician if symptoms worsen Keep scheduled appointment MEDICATION LIST Comment: Normal [facility] Main OR PACU II [facility] Main OR PACU II Record PACU Phase II Doc ument Type FT Summary Primary Physician: Coleen Grajeda MD Finalized Date/Time: 04/14/19 17:54:42 Pt. Name: SHANTEL MELENDEZ /Sex: 1960 Male Med Rec #: [id number] Physician: Coleen Grajeda MD Financial #: [id number] Pt. Type: A Room/Bed: [place] [address] Admit/Disch: 04/14/19 12:59:23 - Institution: Case Times [...] By: Lizeth Rush RN 04/14/19 17:54 Normal [facility] Main OR Preoperative Recordo n 04-14-2019 Main OR Preoperative Record PreOp Document Type FT Summary Primary Physician: Coleen Grajeda MD Finalized Date/Time: 04/14/19 15:14:03 Pt. Name: SHANTEL MELENDEZ Fatimah Ashraf./Sex: 1960 Male Med Rec #: [id number] Physician: Coleen Grajeda MD Financial #: [id number] Pt. Type: Room/Bed: [place] [address] Admit/Disch: 04/14/19 12:59:23 - Institution: Case Times [...] By: Johnathon Karimi RN 04/14/19 15:14 Normal [facility] Patient Education - Texton 1 Patient Education - Text [facility] Vital Signs Date Time Vital Sign Value Performing Clinician Facility 02-19-2025 11:25-0400 Body height 172.72 cm [facility] DO Work Phone: [facility] 02-19-2025 11:25-0400 Body mass index (BMI) [Ratio] 24.1 kg/m2 Griselda Taomees DO Work Phone: [facility] 02-19-2025 11:25-0400 Body weight 72.12 kg Griselda Taomees DO Work Phone: [facility] 02-19-2025 11:25-0400 Diastolic blood pressure 68 mm[Hg] Griselda Kuns DO Work Phone: [facility] 02-19-2025 11:25-0400 Heart rate 107 /min Griselda Kuns DO Work Phone: [facility] 02-19-2025 11:25-0400 Respiratory rate 16 /min Griselda Kuns DO Work Phone: [facility] 02-19-2025 11:25-0400 SaO2% (BldA) [Mass fraction] 98 % Griselda Kuns DO Work Phone: [facility] 02-19-2025 11:25-0400 Systolic blood pressure 102 mm[Hg] Griselda Kuns DO Work Phone: [facility] 02-04-2025 14:41-0400 Body mass index (BMI) [Ratio] 24.18 kg/m2 Oziel Cadena MD Work Phone: [facility] 02-04-2025 14:41-0400 Body weight 72.12 kg Oziel Cadena MD Work Phone: [facility] 02-04-2025 14:41-0400 Diastolic blood pressure 93 mm[Hg] Oziel Cadena MD Work Phone: [facility] 02-04-2025 14:41-0400 Heart rate 113 /min Oziel Cadena MD Work Phone: [facility] 02-04-2025 14:41-0400 Systolic blood pressure 133 mm[Hg] Oziel Cadena MD Work Phone: [facility] 01-12-2025 15:20-0400 Body height 172.72 cm Griselda Kuns DO Work Phone: [facility] 01-12-2025 15:20-0400 Body mass index (BMI) [Ratio] 27 kg/m2 Griselda Kuns DO Work Phone: [facility] 01-12-2025 15:20-0400 Body weight 80.73 kg Griselda Kuns DO Work Phone: [facility] 01-12-2025 15:20-0400 Diastolic blood pressure 74 mm[Hg] Griselda Kuns DO Work Phone: [facility] 01-12-2025 15:20-0400 Heart rate 76 /min Griselda Kuns DO Work Phone: [facility] 01-12-2025 15:20-0400 Systolic blood pressure 120 mm[Hg] Griselda Kuns DO Work Phone: [facility] 12-24-2024 14:12-0400 Body mass index (BMI) [Ratio] 25.09 kg/m2 Oziel Cadena MD Work Phone: [facility] 12-24-2024 14:12-0400 Body weight 74.84 kg Oziel Cadena MD Work Phone: [facility] 12-24-2024 14:12-0400 Diastolic blood pressure 87 mm[Hg] Oziel Cadena MD Work Phone: [facility] 12-24-2024 14:12-0400 Heart rate 85 /min Oziel Cadena MD Work Phone: [facility] 12-24-2024 14:12-0400 Systolic blood pressure 125 mm[Hg] Oziel Cadena MD Work Phone: [facility] 11-19-2024 14:04-0400 Body height 172.72 cm Griselda Kuns DO Work Phone: [facility] 11-19-2024 14:04-0400 Body temperature 100.7 [degF] Griselda Kuns DO Work Phone: [facility] 11-19-2024 14:04-0400 Heart rate 96 /min Griselda Kuns DO Work Phone: [facility] 11-19-2024 14:04-0400 Respiratory rate 18 /min Griselda Kuns DO Work Phone: [facility] 11-19-2024 14:04-0400 SaO2% (BldA) [Mass fraction] 99 % Griselda Kuns DO Work Phone: [facility] 11-17-2024 14:03-0400 Body height 172.72 cm Griselda Kuns DO Work Phone: [facility] 11-17-2024 14:03-0400 Body mass index (BMI) [Ratio] 26.3 kg/m2 Griselda Kuns DO Work Phone: [facility] 11-17-2024 14:03-0400 Body weight 78.47 kg Griselda Kuns DO Work Phone: [facility] 11-17-2024 14:03-0400 Diastolic blood pressure 80 mm[Hg] Griselda Kuns DO Work Phone: [facility] 11-17-2024 14:03-0400 Heart rate 109 /min Griselda Kuns DO Work Phone: [facility] 11-17-2024 14:03-0400 Systolic blood pressure 120 mm[Hg] Griselda Kuns DO Work Phone: [facility] 11-05-2024 10:30-0400 Diastolic blood pressure 76 mm[Hg] Griselda Kuns DO Work Phone: [facility] 11-05-2024 10:30-0400 Heart rate 71 /min Griselda Kuns DO Work Phone: [facility] 11-05-2024 10:30-0400 Respiratory rate 20 /min Griselda Kuns DO Work Phone: [facility] 11-05-2024 10:30-0400 SaO2% (BldA) [Mass fraction] 98 % Griselda Kuns DO Work Phone: [facility] 11-05-2024 10:30-0400 Systolic blood pressure 110 mm[Hg] Griselda Kuns DO Work Phone: [facility] 11-05-2024 07:12-0400 Body height 172.72 cm Griselda Kuns DO Work Phone: [facility] 11-05-2024 07:12-0400 Body weight 77.11 kg Griselda Kuns DO Work Phone: [facility] 10-27-2024 09:57-0400 Body height 172.72 cm Griselda Kuns DO Work Phone: [facility] 10-27-2024 09:57-0400 Body mass index (BMI) [Ratio] 26.4 kg/m2 Griselda Kuns DO Work Phone: [facility] 10-27-2024 09:57-0400 Body weight 78.92 kg Griselda Kuns DO Work Phone: [facility] 10-27-2024 09:57-0400 Diastolic blood pressure 64 mm[Hg] Griselda Kuns DO Work Phone: [facility] 10-27-2024 09:57-0400 Heart rate 64 /min Griselda Kuns DO Work Phone: [facility] 10-27-2024 09:57-0400 Respiratory rate 18 /min Griselda Kuns DO Work Phone: [facility] 10-27-2024 09:57-0400 SaO2% (BldA) [Mass fraction] 98 % Griselda Kuns DO Work Phone: [facility] 10-27-2024 09:57-0400 Systolic blood pressure 110 mm[Hg] Griselda Kuns DO Work Phone: [facility] 10-13-2024 09:06-0400 Body height 172.7 cm Doretha Harris MD Work Phone: [facility] 10-13-2024 09:06-0400 Body mass index (BMI) [Ratio] 25.54 kg/m2 Doretha Harris MD Work Phone: [facility] 10-13-2024 09:06-0400 Body weight 76.2 kg Doretha Harris MD Work Phone: [facility] 10-13-2024 09:06-0400 Diastolic blood pressure 60 mm[Hg] Doretha Harris MD Work Phone: [facility] 10-13-2024 09:06-0400 Heart rate 75 /min Doretha Harris MD Work Phone: [facility] 10-13-2024 09:06-0400 Systolic blood pressure 100 mm[Hg] Doretha Harris MD Work Phone: [facility] 10-10-2024 13:05-0400 Body height 172.72 cm Griselda Kuns DO Work Phone: [facility] 10-10-2024 13:05-0400 Body mass index (BMI) [Ratio] 25.4 kg/m2 Griselda Kuns DO Work Phone: [facility] 10-10-2024 13:05-0400 Body weight 75.74 kg Griselda Kuns DO Work Phone: [facility] 10-10-2024 13:05-0400 Diastolic blood pressure 58 mm[Hg] Griselda Kuns DO Work Phone: [facility] 10-10-2024 13:05-0400 Heart rate 76 /min Griselda Kuns DO Work Phone: [facility] 10-10-2024 13:05-0400 Systolic blood pressure 94 mm[Hg] Griselda Kuns DO Work Phone: [facility] 10-06-2024 18:42-0400 Diastolic blood pressure 80 mm[Hg] Griselda Kuns DO Work Phone: [facility] 10-06-2024 18:42-0400 Heart rate 80 /min Griselda Kuns DO Work Phone: [facility] 10-06-2024 18:42-0400 Respiratory rate 16 /min Griselda Kuns DO Work Phone: [facility] 10-06-2024 18:42-0400 SaO2% (BldA) [Mass fraction] 98 % Griselda Kuns DO Work Phone: [facility] 10-06-2024 18:42-0400 Systolic blood pressure 142 mm[Hg] Griselda Kuns DO Work Phone: [facility] 10-06-2024 14:04-0400 Body height 172.72 cm Griselda Kuns DO Work Phone: [facility] 10-06-2024 14:04-0400 Body temperature 98.2 [degF] Griselda Kuns DO Work Phone: [facility] 10-06-2024 14:04-0400 Body weight 77.9 kg Griselda Kuns DO Work Phone: [facility] 09-20-2024 14:00-0400 Heart rate 88 /min Griselda Kuns DO Work Phone: [facility] 09-20-2024 14:00-0400 Respiratory rate 20 /min Griselda Kuns DO Work Phone: [facility] 09-20-2024 14:00-0400 SaO2% (BldA) [Mass fraction] 93 % Griselda Kuns DO Work Phone: [facility] 09-20-2024 13:48-0400 Body temperature 99.4 [degF] Griselda Kuns DO Work Phone: [facility] 09-20-2024 13:48-0400 Diastolic blood pressure 59 mm[Hg] Griselda Kuns DO Work Phone: [facility] 09-20-2024 13:48-0400 Systolic blood pressure 103 mm[Hg] Griselda Kuns DO Work Phone: [facility] 09-20-2024 10:55-0400 Body height 172.72 cm Griselda Kuns DO Work Phone: [facility] 09-20-2024 10:55-0400 Body weight 77.9 kg Griselda Kuns DO Work Phone: [facility] 09-11-2024 10:46-0400 Body mass index (BMI) [Ratio] 27.06 kg/m2 Oziel Cadena MD Work Phone: [facility] 09-11-2024 10:46-0400 Body weight 80.74 kg Oziel Cadena MD Work Phone: [facility] 09-11-2024 10:46-0400 Diastolic blood pressure 68 mm[Hg] Oziel Cadena MD Work Phone: [facility] 09-11-2024 10:46-0400 Heart rate 61 /min Oziel Cadena MD Work Phone: [facility] 09-11-2024 10:46-0400 Systolic blood pressure 135 mm[Hg] Oziel Cadena MD Work Phone: [facility] 09-11-2024 09:22-0400 Body height 172.72 cm Griselda Kuns DO Work Phone: [facility] 09-11-2024 09:22-0400 Body mass index (BMI) [Ratio] 28.1 kg/m2 Griselda Kuns DO Work Phone: [facility] 09-11-2024 09:22-0400 Body temperature 96.6 [degF] Griselda Kuns DO Work Phone: [facility] 09-11-2024 09:22-0400 Body weight 84 kg Griselda Kuns DO Work Phone: [facility] 09-11-2024 09:22-0400 Diastolic blood pressure 86 mm[Hg] Griselda Kuns DO Work Phone: [facility] 09-11-2024 09:22-0400 Heart rate 78 /min Griselda Kuns DO Work Phone: [facility] 09-11-2024 09:22-0400 Respiratory rate 16 /min Griselda Kuns DO Work Phone: [facility] 09-11-2024 09:22-0400 SaO2% (BldA) [Mass fraction] 98 % Griselda Kuns DO Work Phone: [facility] 09-11-2024 09:22-0400 Systolic blood pressure 122 mm[Hg] Griselda Kuns DO Work Phone: [facility] 07-31-2024 13:26-0500 Body mass index (BMI) [Ratio] 27.37 kg/m2 Oziel Cadena MD Work Phone: [facility] 07-31-2024 13:26-0500 Body weight 81.65 kg Oziel Cadena MD Work Phone: [facility] 07-31-2024 13:26-0500 Diastolic blood pressure 89 mm[Hg] Oziel Cadena MD Work Phone: [facility] 07-31-2024 13:26-0500 Heart rate 81 /min Oziel Cadena MD Work Phone: [facility] 07-31-2024 13:26-0500 Systolic blood pressure 131 mm[Hg] Oziel Cadena MD Work Phone: [facility] 07-03-2024 09:54-0500 Body height 172.72 cm Griselda Kuns DO Work Phone: [facility] 07-03-2024 09:54-0500 Body mass index (BMI) [Ratio] 28.4 kg/m2 Griselda Kuns DO Work Phone: [facility] 07-03-2024 09:54-0500 Body weight 84.82 kg Griselda Kuns DO Work Phone: [facility] 07-03-2024 09:54-0500 Diastolic blood pressure 70 mm[Hg] Griselda Kuns DO Work Phone: [facility] 07-03-2024 09:54-0500 Heart rate 81 /min Griselda Kuns DO Work Phone: [facility] 07-03-2024 09:54-0500 Respiratory rate 18 /min Griselda Kuns DO Work Phone: [facility] 07-03-2024 09:54-0500 SaO2% (BldA) [Mass fraction] 98 % Griselda Kuns DO Work Phone: [facility] 07-03-2024 09:54-0500 Systolic blood pressure 120 mm[Hg] Griselda Kuns DO Work Phone: [facility] 07-02-2024 14:18-0500 Body mass index (BMI) [Ratio] 28.28 kg/m2 Oziel Cadena MD Work Phone: [facility] 07-02-2024 14:18-0500 Body weight 84.37 kg Oziel Cadena MD Work Phone: [facility] 07-02-2024 14:18-0500 Diastolic blood pressure 77 mm[Hg] Oziel Cadena MD Work Phone: [facility] 07-02-2024 14:18-0500 Heart rate 86 /min Oziel Cadena MD Work Phone: [facility] 07-02-2024 14:18-0500 Systolic blood pressure 143 mm[Hg] Oziel Cadena MD Work Phone: [facility] 06-30-2024 08:56-0500 Body height 172.7 cm Doretha Harris MD Work Phone: [facility] 06-30-2024 08:56-0500 Body mass index (BMI) [Ratio] 27.37 kg/m2 Doretha Harris MD Work Phone: [facility] 06-30-2024 08:56-0500 Body weight 81.65 kg Doretha Harris MD Work Phone: 5(578)045-[address] [place] [address] 06-30-2024 08:56-0500 Diastolic blood pressure 70 mm[Hg] Doretha Harris MD Work Phone: 7(864)[phone] [place] [address] 06-30-2024 08:56-0500 Heart rate 75 /min Doretha Harris MD Work Phone: 6(286)359-4523[address] [place] [address] 06-30-2024 08:56-0500 Systolic blood pressure 124 mm[Hg] Doretha Harris MD Work Phone: [facility] 05-21-2024 14:04-0500 Body height 172.7 cm Oziel Cadena MD Work Phone: [facility] 05-21-2024 14:04-0500 Body mass index (BMI) [Ratio] 26.46 kg/m2 Oziel Cadena MD Work Phone: [facility] 05-21-2024 14:04-0500 Body weight 78.93 kg Oziel Cadena MD Work Phone: [facility] 05-21-2024 14:04-0500 Diastolic blood pressure 82 mm[Hg] Oziel Cadena MD Work Phone: [facility] 05-21-2024 14:04-0500 Systolic blood pressure 120 mm[Hg] Oziel Cadena MD Work Phone: [facility] 04-28-2024 09:48-0500 Body height 172.72 cm [facility] 04-28-2024 09:48-0500 Body mass index (BMI) [Ratio] 27 kg/m2 [facility] 04-28-2024 09:48-0500 Body weight 80.73 kg [facility] 04-28-2024 09:48-0500 Diastolic blood pressure 76 mm[Hg] [facility] 04-28-2024 09:48-0500 Heart rate 61 /min [facility] 04-28-2024 09:48-0500 Respiratory rate 18 /min [facility] 04-28-2024 09:48-0500 SaO2% (BldA) [Mass fraction] 96 % [facility] 04-28-2024 09:48-0500 Systolic blood pressure 130 mm[Hg] [facility] 04-10-2024 12:11-0400 Body temperature 98.1 [degF] Doretha Harris MD Work Phone: [facility] 04-10-2024 12:11-0400 Diastolic blood pressure 58 mm[Hg] Doretha Harris MD Work Phone: [facility] 04-10-2024 12:11-0400 Heart rate 82 /min Doretha Harris MD Work Phone: [facility] 04-10-2024 12:11-0400 Respiratory rate 17 /min Doretha Harris MD Work Phone: [facility] 04-10-2024 12:11-0400 Systolic blood pressure 118 mm[Hg] Doretha Harris MD Work Phone: [facility] 04-10-2024 09:20-0400 SaO2% (BldA) [Mass fraction] 93 % Doretha Harris MD Work Phone: [facility] 04-09-2024 15:07-0400 Body temperature 37 Doretha Harris MD Work Phone: [facility] 04-09-2024 15:07-0400 SaO2% (BldA) [Mass fraction] 100 % Doretha Harris MD Work Phone: [facility] 04-09-2024 14:47-0400 Body temperature 37.0 degrees Celsius [facility] Comment on above: Performed By: #### [id number] #### TITUS Mercado ([id number]) [facility] ([facility]) [address] [place] [address] 04-09-2024 14:47-0400 SaO2% (BldA) [Mass fraction] 100 % [facility] Comment on above: Performed By: #### [id number] #### TITUS Mercado ([id number]) [facility] ([facility]) [address] [place] [address] 04-09-2024 12:11-0400 Body height 172.7 cm Doretha Harris MD Work Phone: [facility] 04-09-2024 12:11-0400 Body mass index (BMI) [Ratio] 27.12 kg/m2 Doretha Harris MD Work Phone: [facility] 04-09-2024 12:11-0400 Body weight 80.9 kg Doretha Harris MD Work Phone: [facility] 04-01-2024 10:47-0400 Body height 172.72 cm [facility] 04-01-2024 10:47-0400 Body mass index (BMI) [Ratio] 27.2 kg/m2 [facility] 04-01-2024 10:47-0400 Body weight 81.19 kg [facility] 04-01-2024 10:47-0400 Diastolic blood pressure 70 mm[Hg] [facility] 04-01-2024 10:47-0400 Heart rate 50 /min [facility] 04-01-2024 10:47-0400 Respiratory rate 16 /min [facility] 04-01-2024 10:47-0400 SaO2% (BldA) [Mass fraction] 99 % [facility] 04-01-2024 10:47-0400 Systolic blood pressure 120 mm[Hg] [facility] 01-31-2024 10:24-0400 Body height 172.72 cm [facility] 01-31-2024 10:24-0400 Body mass index (BMI) [Ratio] 27.3 kg/m2 [facility] 01-31-2024 10:24-0400 Body weight 81.64 kg [facility] 01-31-2024 10:24-0400 Diastolic blood pressure 70 mm[Hg] [facility] 01-31-2024 10:24-0400 Heart rate 75 /min [facility] 01-31-2024 10:24-0400 Respiratory rate 18 /min [facility] 01-31-2024 10:24-0400 SaO2% (BldA) [Mass fraction] 98 % [facility] 01-31-2024 10:24-0400 Systolic blood pressure 122 mm[Hg] [facility] 01-03-2024 13:36-0400 Body height 172.7 cm Doretha Harris MD Work Phone: [facility] 01-03-2024 13:36-0400 Body mass index (BMI) [Ratio] 27.43 kg/m2 Doretha Harris MD Work Phone: [facility] 01-03-2024 13:36-0400 Body weight 81.83 kg Doretha Harris MD Work Phone: [facility] 01-03-2024 13:36-0400 Diastolic blood pressure 80 mm[Hg] Doretha Harris MD Work Phone: [facility] 01-03-2024 13:36-0400 Heart rate 80 /min Doretha Harris MD Work Phone: [facility] 01-03-2024 13:36-0400 Systolic blood pressure 160 mm[Hg] Doretha Harris MD Work Phone: [facility] 12-13-2023 10:00-0400 Body mass index (BMI) [Ratio] 27.1 kg/m2 Helder Jack MD Work Phone: [facility] 12-13-2023 10:00-0400 Body temperature 97.5 [degF] Helder Jack MD Work Phone: [facility] 12-13-2023 10:00-0400 Body weight 80.83 kg Helder Jack MD Work Phone: [facility] 12-13-2023 10:00-0400 Diastolic blood pressure 59 mm[Hg] Helder Jack MD Work Phone: [facility] 12-13-2023 10:00-0400 Heart rate 92 /min Helder Jack MD Work Phone: [facility] 12-13-2023 10:00-0400 Respiratory rate 17 /min Helder Jack MD Work Phone: [facility] 12-13-2023 10:00-0400 SaO2% (BldA) [Mass fraction] 96 % Helder Jack MD Work Phone: [facility] 12-13-2023 10:00-0400 Systolic blood pressure 133 mm[Hg] Helder Jack MD Work Phone: [facility] 12-12-2023 13:08-0400 Body height 172.7 cm Solomon Milks PA-C Work Phone: [facility] 12-12-2023 13:08-0400 Body mass index (BMI) [Ratio] 26.91 kg/m2 Solomon Milks PA-C Work Phone: [facility] 12-12-2023 13:08-0400 Body weight 80.29 kg Solomon Milks PA-C Work Phone: [facility] 12-12-2023 13:08-0400 Diastolic blood pressure 70 mm[Hg] Solomon Milks PA-C Work Phone: [facility] 12-12-2023 13:08-0400 Heart rate 91 /min Solomno Milks PA-C Work Phone: [facility] 12-12-2023 13:08-0400 Systolic blood pressure 116 mm[Hg] Solomon Narayanan PA-C Work Phone: [facility] 12-03-2023 10:51-0400 Body height 172.72 cm DO Griselda Kuns Work Phone: [facility] 12-03-2023 10:51-0400 Body mass index (BMI) [Ratio] 26.1 kg/m2 DO Griselda Kuns Work Phone: [facility] 12-03-2023 10:51-0400 Body weight 78.01 kg DO Griselda Kuns Work Phone: [facility] 12-03-2023 10:51-0400 Diastolic blood pressure 82 mm[Hg] DO Griselda Kuns Work Phone: [facility] 12-03-2023 10:51-0400 Heart rate 97 /min DO Griselda Kuns Work Phone: [facility] 12-03-2023 10:51-0400 Respiratory rate 18 /min DO Griselda Kuns Work Phone: [facility] 12-03-2023 10:51-0400 SaO2% (BldA) [Mass fraction] 96 % DO Griselda Kuns Work Phone: [facility] 12-03-2023 10:51-0400 Systolic blood pressure 110 mm[Hg] DO Griselda Kuns Work Phone: [facility] 11-02-2023 09:49-0400 Body height 170.6 cm Racquel Cole MD Work Phone: [facility] 11-02-2023 09:49-0400 Body mass index (BMI) [Ratio] 27.38 kg/m2 Racquel Cole MD Work Phone: [facility] 11-02-2023 09:49-0400 Body temperature 97.7 [degF] Racquel Cole MD Work Phone: [facility] 11-02-2023 09:49-0400 Body weight 79.7 kg Racquel Cole MD Work Phone: [facility] 11-02-2023 09:49-0400 Diastolic blood pressure 76 mm[Hg] Racquel Cole MD Work Phone: [facility] 11-02-2023 09:49-0400 Heart rate 72 /min Racquel Cole MD Work Phone: [facility] 11-02-2023 09:49-0400 Respiratory rate 16 /min Racquel Cole MD Work Phone: [facility] 11-02-2023 09:49-0400 SaO2% (BldA) [Mass fraction] 99 % Racquel Cole MD Work Phone: [facility] 11-02-2023 09:49-0400 Systolic blood pressure 130 mm[Hg] Racquel Cole MD Work Phone: [facility] 10-29-2023 10:32-0400 Body height 172.72 cm DO Griselda Kuns Work Phone: [facility] 10-29-2023 10:32-0400 Body mass index (BMI) [Ratio] 26.6 kg/m2 DO Griselda Kuns Work Phone: [facility] 10-29-2023 10:32-0400 Body weight 79.37 kg DO Griselda Kuns Work Phone: [facility] 10-29-2023 10:32-0400 Diastolic blood pressure 82 mm[Hg] DO Griselda Kuns Work Phone: [facility] 10-29-2023 10:32-0400 Heart rate 71 /min DO Griselda Kuns Work Phone: [facility] 10-29-2023 10:32-0400 Respiratory rate 16 /min DO Griselda Kuns Work Phone: [facility] 10-29-2023 10:32-0400 SaO2% (BldA) [Mass fraction] 98 % DO Griselda Kuns Work Phone: [facility] 10-29-2023 10:32-0400 Systolic blood pressure 128 mm[Hg] DO Griselda Kuns Work Phone: [facility] 10-18-2023 09:02-0400 Diastolic blood pressure 68 mm[Hg] DO Griselda Kuns Work Phone: [facility] 10-18-2023 09:02-0400 Systolic blood pressure 132 mm[Hg] DO Griselda Kuns Work Phone: [facility] 10-18-2023 08:58-0400 Body height 172.72 cm DO Griselda Kuns Work Phone: [facility] 10-18-2023 08:58-0400 Body mass index (BMI) [Ratio] 26.6 kg/m2 DO Griselda Kuns Work Phone: [facility] 10-18-2023 08:58-0400 Body weight 79.37 kg DO Griselda Kuns Work Phone: [facility] 10-18-2023 08:58-0400 Heart rate 57 /min DO Griselda Kuns Work Phone: [facility] 10-18-2023 08:58-0400 Respiratory rate 18 /min DO Griselda Kuns Work Phone: [facility] 10-18-2023 08:58-0400 SaO2% (BldA) [Mass fraction] 98 % DO Griselda Kuns Work Phone: [facility] 10-05-2023 09:37-0400 Body height 172.2 cm Helder Jack MD Work Phone: [facility] 10-05-2023 09:37-0400 Body mass index (BMI) [Ratio] 26.25 kg/m2 Helder Jack MD Work Phone: [facility] 10-05-2023 09:37-0400 Body temperature 97.3 [degF] Helder Jack MD Work Phone: [facility] 10-05-2023 09:37-0400 Body weight 77.84 kg Helder Jack MD Work Phone: [facility] 10-05-2023 09:37-0400 Diastolic blood pressure 68 mm[Hg] Helder Jack MD Work Phone: [facility] 10-05-2023 09:37-0400 Heart rate 81 /min Helder Jack MD Work Phone: [facility] 10-05-2023 09:37-0400 Respiratory rate 16 /min Helder Jack MD Work Phone: [facility] 10-05-2023 09:37-0400 SaO2% (BldA) [Mass fraction] 99 % Helder Jack MD Work Phone: [facility] 10-05-2023 09:37-0400 Systolic blood pressure 116 mm[Hg] Helder Jack MD Work Phone: [facility] 09-05-2023 13:44-0400 Diastolic blood pressure 99 mm[Hg] DO Griselda Kuns Work Phone: [facility] 09-05-2023 13:44-0400 Systolic blood pressure 160 mm[Hg] DO Griselda Kuns Work Phone: [facility] 09-05-2023 13:41-0400 Body height 172.72 cm DO Griselda Kuns Work Phone: [facility] 09-05-2023 13:41-0400 Body mass index (BMI) [Ratio] 27.8 kg/m2 DO Griselda Kuns Work Phone: [facility] 09-05-2023 13:41-0400 Body weight 83 kg DO Griselda Kuns Work Phone: [facility] 09-05-2023 13:41-0400 Heart rate 66 /min DO Griselda Kuns Work Phone: [facility] 09-05-2023 13:41-0400 Respiratory rate 18 /min DO Griselda Kuns Work Phone: [facility] 09-05-2023 13:41-0400 SaO2% (BldA) [Mass fraction] 99 % DO Griselda Kuns Work Phone: [facility] 09-05-2023 11:58-0400 Body height 172.72 cm DO Griselda Kuns Work Phone: [facility] 09-05-2023 11:58-0400 Body mass index (BMI) [Ratio] 27.3 kg/m2 DO Griselda Kuns Work Phone: [facility] 09-05-2023 11:58-0400 Body temperature 97.8 [degF] DO Griselda Kuns Work Phone: [facility] 09-05-2023 11:58-0400 Body weight 81.64 kg DO Griselda Kuns Work Phone: [facility] 09-05-2023 11:58-0400 Diastolic blood pressure 92 mm[Hg] DO Griselda Kuns Work Phone: [facility] 09-05-2023 11:58-0400 Heart rate 71 /min DO Griselda Kuns Work Phone: [facility] 09-05-2023 11:58-0400 SaO2% (BldA) [Mass fraction] 96 % DO Griselda Kuns Work Phone: [facility] 09-05-2023 11:58-0400 Systolic blood pressure 160 mm[Hg] DO Griselda Kuns Work Phone: [facility] 08-15-2023 15:41-0500 Body height 172.72 cm DO Griselda Kuns Work Phone: [facility] 08-15-2023 15:41-0500 Body mass index (BMI) [Ratio] 28.1 kg/m2 DO Griselda Kuns Work Phone: [facility] 08-15-2023 15:41-0500 Body weight 84.08 kg DO Griselda Kuns Work Phone: [facility] 08-15-2023 15:41-0500 Diastolic blood pressure 72 mm[Hg] DO Griselda Kuns Work Phone: [facility] 08-15-2023 15:41-0500 Heart rate 62 /min DO Griselda Kuns Work Phone: [facility] 08-15-2023 15:41-0500 Respiratory rate 18 /min DO Griselda Kuns Work Phone: [facility] 08-15-2023 15:41-0500 SaO2% (BldA) [Mass fraction] 99 % DO Griselda Kuns Work Phone: [facility] 08-15-2023 15:41-0500 Systolic blood pressure 128 mm[Hg] DO Griselda Kuns Work Phone: [facility] 08-02-2023 13:11-0500 Body height 172.72 cm DO Griselda Kuns Work Phone: [facility] 08-02-2023 13:11-0500 Body mass index (BMI) [Ratio] 27.9 kg/m2 DO Griselda Kuns Work Phone: [facility] 08-02-2023 13:11-0500 Body weight 83.46 kg DO Griselda Kuns Work Phone: [facility] 08-02-2023 13:11-0500 Diastolic blood pressure 70 mm[Hg] DO Griselda Kuns Work Phone: [facility] 08-02-2023 13:11-0500 Heart rate 68 /min DO Griselda Kuns Work Phone: [facility] 08-02-2023 13:11-0500 Respiratory rate 16 /min DO Griselda Kuns Work Phone: [facility] 08-02-2023 13:11-0500 SaO2% (BldA) [Mass fraction] 97 % DO Griselda Kuns Work Phone: [facility] 08-02-2023 13:11-0500 Systolic blood pressure 130 mm[Hg] DO Griselda Kuns Work Phone: [facility] 07-02-2023 09:30-0500 Body height 172.72 cm Griselda Kuns Other [facility] 07-02-2023 09:30-0500 Body mass index (BMI) [Ratio] 28.28 kg/m2 Griselda Kuns Other [facility] [employer] Other 07-02-2023 09:30-0500 Body weight 84.37 kg Griselda Kuns Other [facility] [employer] Other 07-02-2023 09:30-0500 Body weight 84.36 kg DO Griselda Kuns Work Phone: [facility] 07-02-2023 09:30-0500 Diastolic blood pressure 92 mm[Hg] Griselda Kuns Other [facility] 07-02-2023 09:30-0500 Respiratory rate 16 /min Griselda Kuns Other [employer] Other 07-02-2023 09:30-0500 SaO2% (BldA) [Mass fraction] 97 % Griselda Kuns Other [employer] Other 07-02-2023 09:30-0500 Systolic blood pressure 160 mm[Hg] Griselda Kuns Other [facility] 05-31-2023 13:45-0500 Body height 172.72 cm Griselda Andreas Other [facility] 05-31-2023 13:45-0500 Body mass index (BMI) [Ratio] 27.37 kg/m2 Griseldakeith Mendezs Other [employer] Other 05-31-2023 13:45-0500 Body weight 81.65 kg Griseldakeith Mendezs Other [employer] Other 05-31-2023 13:45-0500 Body weight 81.64 kg DO Griselda Hastings Work Phone: [facility] 05-31-2023 13:45-0500 Diastolic blood pressure 80 mm[Hg] Griselda Andreas Other [facility] 05-31-2023 13:45-0500 Respiratory rate 18 /min Griselda Mendezs Other [employer] Other 05-31-2023 13:45-0500 SaO2% (BldA) [Mass fraction] 98 % Griseldakeith Mendezs Other [employer] Other 05-31-2023 13:45-0500 Systolic blood pressure 120 mm[Hg] Griselda Andreas Other [facility] 05-30-2023 11:15-0500 Body height 172.72 cm Ruddy Harvey Other [facility] 05-30-2023 11:15-0500 Body mass index (BMI) [Ratio] 27.52 kg/m2 Ruddy Harvey Other [employer] Other 05-30-2023 11:15-0500 Body temperature 97.8 [degF] Ruddy Harvey Other [employer] [facility] [employer] Other 05-30-2023 11:15-0500 Body weight 82.1 kg Ruddy Ovalledoris Other [facility] 05-30-2023 11:15-0500 SaO2% (BldA) [Mass fraction] 98 % Ruddy Wes Other [employer] [facility] [employer] Other 05-15-2023 13:20-0500 Body height 172.72 cm Lilliam Kamla Other [facility] 05-15-2023 13:20-0500 Body mass index (BMI) [Ratio] 27.52 kg/m2 Lilliam Kamla Other [employer] Other 05-15-2023 13:20-0500 Body weight 82.1 kg Lilliam Kamla Other [facility] 05-15-2023 13:20-0500 Diastolic blood pressure 84 mm[Hg] Lilliam Kamla Other [facility] 05-15-2023 13:20-0500 Respiratory rate 18 /min Lilliam Kamla Other [employer] Other 05-15-2023 13:20-0500 SaO2% (BldA) [Mass fraction] 98 % Lilliam Kamla Other [employer] [facility] [employer] Other 05-15-2023 13:20-0500 Systolic blood pressure 142 mm[Hg] Lilliam Kamla Other [facility] 05-07-2023 13:16-0500 Diastolic blood pressure 78 mm[Hg] DO [employer] Work Phone: [facility] 05-07-2023 13:16-0500 Heart rate 75 /min DO [employer] Work Phone: [facility] 05-07-2023 13:16-0500 Respiratory rate 16 /min DO Griselda Taomees Work Phone: [facility] 05-07-2023 13:16-0500 SaO2% (BldA) [Mass fraction] 96 % DO Griselda Kuns Work Phone: [facility] 05-07-2023 13:16-0500 Systolic blood pressure 135 mm[Hg] DO Griselda Taomees Work Phone: [facility] 05-07-2023 10:30-0500 Inhaled oxygen flow rate 3 L/min DO Griselda Taomees Work Phone: [facility] 05-07-2023 08:29-0500 Body height 172.72 cm DO Griselda Taomees Work Phone: [facility] 05-07-2023 08:29-0500 Body weight 79.37 kg DO Griselda Taomees Work Phone: [facility] 05-03-2023 09:15-0500 Body height 172.72 cm Ruddy Harvey Other [employer] Other 05-03-2023 09:15-0500 Body mass index (BMI) [Ratio] 27.06 kg/m2 Ruddy Harvey Other [employer] Other 05-03-2023 09:15-0500 Body temperature 97.8 [degF] Ruddy Harvey Other [employer] Other 05-03-2023 09:15-0500 Body weight 80.74 kg Ruddy Harvey Other [employer] Other 05-03-2023 09:15-0500 Diastolic blood pressure 78 mm[Hg] Ruddy Harvey Other [employer] Other 05-03-2023 09:15-0500 SaO2% (BldA) [Mass fraction] 97 % Ruddy Ovalledoris Other [employer] Other 05-03-2023 09:15-0500 Systolic blood pressure 146 mm[Hg] Ruddy Ovalledoris Other [employer] Other 05-01-2023 10:30-0500 Body height 172.72 cm Griselda Taomees Other [employer] Other 05-01-2023 10:30-0500 Body mass index (BMI) [Ratio] 27.06 kg/m2 Griselda Kuns Other [employer] Other 05-01-2023 10:30-0500 Body weight 80.74 kg Griselda Kuns Other [employer] Other 05-01-2023 10:30-0500 Diastolic blood pressure 80 mm[Hg] Griselda Kuns Other [employer] Other 05-01-2023 10:30-0500 Respiratory rate 18 /min Griselda Kuns Other [employer] Other 05-01-2023 10:30-0500 SaO2% (BldA) [Mass fraction] 96 % Griselda Kuns Other [employer] Other 05-01-2023 10:30-0500 Systolic blood pressure 144 mm[Hg] Griselda Kuns Other [employer] Other 04-11-2023 10:40-0400 Body height 172.72 cm Lilliam Cason Other [employer] Other 04-11-2023 10:40-0400 Body mass index (BMI) [Ratio] 26.67 kg/m2 Lilliam Cason Other [employer] Other 04-11-2023 10:40-0400 Body weight 79.56 kg Lilliam Cason Other [employer] Other 04-11-2023 10:40-0400 Diastolic blood pressure 80 mm[Hg] Lilliam Cason Other [employer] Other 04-11-2023 10:40-0400 SaO2% (BldA) [Mass fraction] 96 % Lilliam Cason Other [employer] Other 04-11-2023 10:40-0400 Systolic blood pressure 148 mm[Hg] Lilliam Cason Other [employer] Other 03-21-2023 02:42-0400 Diastolic blood pressure 98 mm[Hg] DO Griselda Kuns Work Phone: [facility] 03-21-2023 02:42-0400 Heart rate 72 /min DO Griselda Kuns Work Phone: [facility] 03-21-2023 02:42-0400 Respiratory rate 16 /min DO Griselda Kuns Work Phone: [facility] 03-21-2023 02:42-0400 SaO2% (BldA) [Mass fraction] 97 % DO Griselda Kuns Work Phone: [facility] 03-21-2023 02:42-0400 Systolic blood pressure 170 mm[Hg] DO Griselda Kuns Work Phone: [facility] 03-21-2023 00:12-0400 Body height 172.72 cm DO Griselda Kuns Work Phone: [facility] 03-21-2023 00:12-0400 Body temperature 98 [degF] DO Griselda Kuns Work Phone: [facility] 03-21-2023 00:12-0400 Body weight 79.37 kg DO Griselda Kuns Work Phone: [facility] 03-15-2023 10:30-0400 Body height 172.72 cm Griselda Kuns Other [employer] Other 03-15-2023 10:30-0400 Body mass index (BMI) [Ratio] 26.76 kg/m2 Griselda Kuns Other [employer] Other 03-15-2023 10:30-0400 Body weight 79.83 kg Griselda Kuns Other [employer] Other 03-15-2023 10:30-0400 Diastolic blood pressure 86 mm[Hg] Griselda Kuns Other [employer] Other 03-15-2023 10:30-0400 Respiratory rate 16 /min Griselda Kuns Other [employer] Other 03-15-2023 10:30-0400 SaO2% (BldA) [Mass fraction] 97 % Griselda Kuns Other [employer] Other 03-15-2023 10:30-0400 Systolic blood pressure 174 mm[Hg] Griselda Kuns Other [employer] Other 03-08-2023 10:00-0400 Body height 172.72 cm Griselda Kuns Other [employer] Other 03-08-2023 10:00-0400 Body mass index (BMI) [Ratio] 27.18 kg/m2 Griselda Kuns Other [employer] Other 03-08-2023 10:00-0400 Body weight 81.1 kg Griselda Kuns Other [employer] Other 03-08-2023 10:00-0400 Diastolic blood pressure 82 mm[Hg] Griselda Kuns Other [employer] Other 03-08-2023 10:00-0400 Respiratory rate 16 /min Griselda Andreas Other [employer] Other 03-08-2023 10:00-0400 SaO2% (BldA) [Mass fraction] 96 % Griselda Andreas Other [employer] Other 03-08-2023 10:00-0400 Systolic blood pressure 118 mm[Hg] Griselda Kuns Other [employer] Other 02-26-2023 14:13-0400 Body height 172.72 cm DO Griselda Kuns Work Phone: [facility] 02-26-2023 14:13-0400 Body temperature 98 [degF] DO Griselda Kuns Work Phone: [facility] 02-26-2023 14:13-0400 Body weight 78.6 kg DO Griselda Kuns Work Phone: [facility] 02-26-2023 14:13-0400 Diastolic blood pressure 77 mm[Hg] DO Griselda Kuns Work Phone: [facility] 02-26-2023 14:13-0400 Heart rate 56 /min DO Griselda Kuns Work Phone: [facility] 02-26-2023 14:13-0400 Respiratory rate 18 /min DO Griselda Kuns Work Phone: [facility] 02-26-2023 14:13-0400 SaO2% (BldA) [Mass fraction] 96 % DO Griselda Kuns Work Phone: [facility] 02-26-2023 14:13-0400 Systolic blood pressure 142 mm[Hg] DO Griselda Kuns Work Phone: [facility] 12-05-2022 10:15-0400 Body height 172.72 cm Griselda Kuns Other [employer] Other 12-05-2022 10:15-0400 Body mass index (BMI) [Ratio] 25.85 kg/m2 Griselda Kuns Other [employer] Other 12-05-2022 10:15-0400 Body weight 77.11 kg Griselda Kuns Other [employer] Other 12-05-2022 10:15-0400 Diastolic blood pressure 80 mm[Hg] Griselda Kuns Other [employer] Other 12-05-2022 10:15-0400 Respiratory rate 16 /min Griselda Kuns Other [employer] Other 12-05-2022 10:15-0400 SaO2% (BldA) [Mass fraction] 96 % Griselda Kuns Other [employer] Other 12-05-2022 10:15-0400 Systolic blood pressure 140 mm[Hg] Griselda Kuns Other [employer] Other 09-13-2022 10:57-0400 Body height 170.6 cm Kelly Moorek PA-C Work Phone: [facility] 09-13-2022 10:57-0400 Body temperature 97.39 [degF] Kelly Moorek PA-C Work Phone: [facility] 09-13-2022 10:57-0400 Body weight 77.34 kg Kelly Moorek PA-C Work Phone: [facility] 09-13-2022 10:57-0400 Diastolic blood pressure 61 mm[Hg] Kelly Moorek PA-C Work Phone: [facility] 09-13-2022 10:57-0400 Heart rate 70 /min Kelly Moorek PA-C Work Phone: [facility] 09-13-2022 10:57-0400 Respiratory rate 18 /min Kelly Moorek PA-C Work Phone: [facility] 09-13-2022 10:57-0400 SaO2% (BldA) [Mass fraction] 100 % Kelly Moorek PA-C Work Phone: [facility] 09-13-2022 10:57-0400 Systolic blood pressure 133 mm[Hg] Kelly Moorek PA-C Work Phone: [facility] 08-31-2022 11:15-0400 Body height 172.72 cm Griseldakeith Mendezroge Other [employer] Other 08-31-2022 11:15-0400 Body mass index (BMI) [Ratio] 26.79 kg/m2 Griselda Taomees Other [employer] Other 08-31-2022 11:15-0400 Body weight 79.92 kg Griselda Taomeeroge Other [employer] Other 08-31-2022 11:15-0400 Diastolic blood pressure 78 mm[Hg] Griselda Kuns Other [employer] Other 08-31-2022 11:15-0400 Respiratory rate 16 /min Griselda Kuns Other [employer] Other 08-31-2022 11:15-0400 SaO2% (BldA) [Mass fraction] 98 % Griselda Kuns Other [employer] Other 08-31-2022 11:15-0400 Systolic blood pressure 138 mm[Hg] Griselda Kuns Other [employer] Other 08-01-2022 10:30-0500 Body height 172.72 cm Griselda Kuns Other [employer] Other 08-01-2022 10:30-0500 Body mass index (BMI) [Ratio] 27.27 kg/m2 Griselda Kuns Other [employer] Other 08-01-2022 10:30-0500 Body weight 81.38 kg Griselda Kuns Other [employer] Other 08-01-2022 10:30-0500 Diastolic blood pressure 82 mm[Hg] Griselda Kuns Other [employer] Other 08-01-2022 10:30-0500 Respiratory rate 16 /min Griselda Kuns Other [employer] Other 08-01-2022 10:30-0500 SaO2% (BldA) [Mass fraction] 99 % Griselda Kuns Other [employer] [facility] [employer] Other 08-01-2022 10:30-0500 Systolic blood pressure 146 mm[Hg] Griselda Kuns Other [employer] Other 07-17-2022 09:45-0500 Diastolic blood pressure 98 mm[Hg] DO Griselda Kuns Work Phone: [facility] 07-17-2022 09:45-0500 Heart rate 69 /min DO Griselda Kuns Work Phone: [facility] 07-17-2022 09:45-0500 Respiratory rate 16 /min DO Griselda Kuns Work Phone: [facility] 07-17-2022 09:45-0500 SaO2% (BldA) [Mass fraction] 99 % DO Griselda Kuns Work Phone: [facility] 07-17-2022 09:45-0500 Systolic blood pressure 144 mm[Hg] DO Griselda Kuns Work Phone: [facility] 07-17-2022 07:58-0500 Body height 172.72 cm DO Griselda Kuns Work Phone: [facility] 07-17-2022 07:58-0500 Body weight 79.37 kg DO Griselda Kuns Work Phone: [facility] 06-28-2022 10:20-0500 Body height 172.72 cm Trish Blades Other [employer] Other 06-28-2022 10:20-0500 Body mass index (BMI) [Ratio] 26.67 kg/m2 Trish Blades Other [employer] Other 06-28-2022 10:20-0500 Body weight 79.56 kg Trish Blades Other [employer] Other 06-28-2022 10:20-0500 Diastolic blood pressure 80 mm[Hg] Trish Blades Other [employer] Other 06-28-2022 10:20-0500 Systolic blood pressure 140 mm[Hg] Trish Blades Other [employer] Other 05-26-2022 13:30-0500 Body height 172.72 cm Griselda Kuns Other [employer] Other 05-26-2022 13:30-0500 Body mass index (BMI) [Ratio] 26.7 kg/m2 Griselda Kuns Other [employer] Other 05-26-2022 13:30-0500 Body weight 79.65 kg Griselda Kuns Other [employer] Other 05-26-2022 13:30-0500 Diastolic blood pressure 82 mm[Hg] Griselda Kuns Other [employer] Other 05-26-2022 13:30-0500 Respiratory rate 18 /min Griselda Kuns Other [employer] Other 05-26-2022 13:30-0500 SaO2% (BldA) [Mass fraction] 98 % Griselda Kuns Other [employer] Other 05-26-2022 13:30-0500 Systolic blood pressure 144 mm[Hg] Griselda Kuns Other [employer] Other 04-17-2022 00:30-0400 Diastolic blood pressure 64 mm[Hg] DO Griselda Kuns Work Phone: [facility] 04-17-2022 00:30-0400 Heart rate 78 /min DO Griselda Kuns Work Phone: [facility] 04-17-2022 00:30-0400 Respiratory rate 16 /min DO Griselda Kuns Work Phone: [facility] 04-17-2022 00:30-0400 SaO2% (BldA) [Mass fraction] 97 % DO Griselda Kuns Work Phone: [facility] 04-17-2022 00:30-0400 Systolic blood pressure 135 mm[Hg] DO Griselda Kuns Work Phone: [facility] 04-16-2022 19:45-0400 Body height 172.72 cm DO Griselda Kuns Work Phone: [facility] 04-16-2022 19:45-0400 Body temperature 98.1 [degF] DO Griselda Kuns Work Phone: [facility] 04-16-2022 19:45-0400 Body weight 78 kg DO Griselda Kuns Work Phone: [facility] 04-06-2022 16:31-0400 Body height 172.72 cm DO Griselda Kuns Work Phone: [facility] 04-06-2022 16:31-0400 Body temperature 98.1 [degF] DO Griselda Kuns Work Phone: [facility] 04-06-2022 16:31-0400 Body weight 79.37 kg DO Griselda Kuns Work Phone: [facility] 04-06-2022 16:31-0400 Diastolic blood pressure 108 mm[Hg] DO Griselda Kuns Work Phone: [facility] 04-06-2022 16:31-0400 Heart rate 95 /min DO Griselda Kuns Work Phone: [facility] 04-06-2022 16:31-0400 Respiratory rate 19 /min DO Griselda Kuns Work Phone: [facility] 04-06-2022 16:31-0400 SaO2% (BldA) [Mass fraction] 97 % DO Griselda Kuns Work Phone: [facility] 04-06-2022 16:31-0400 Systolic blood pressure 138 mm[Hg] DO Griselda Kuns Work Phone: [facility] 03-16-2022 13:30-0400 Body height 172.72 cm Griselda Taomees Other [employer] Other 03-16-2022 13:30-0400 Body mass index (BMI) [Ratio] 26.91 kg/m2 Griselda Taomees Other [employer] Other 03-16-2022 13:30-0400 Body weight 80.29 kg Griselda Kuns Other [employer] Other 03-16-2022 13:30-0400 Diastolic blood pressure 80 mm[Hg] Griselda Kuns Other [employer] Other 03-16-2022 13:30-0400 Respiratory rate 16 /min Griselda Taomees Other [employer] Other 03-16-2022 13:30-0400 SaO2% (BldA) [Mass fraction] 97 % Griselda Kuns Other [employer] Other 03-16-2022 13:30-0400 Systolic blood pressure 140 mm[Hg] Griselda Kuns Other [employer] Other 01-30-2022 12:00-0400 Body height 172.72 cm Griselda Kuns Other [employer] Other 01-30-2022 12:00-0400 Body mass index (BMI) [Ratio] 26.3 kg/m2 Griselda Kuns Other [employer] Other 01-30-2022 12:00-0400 Body weight 78.47 kg Griselda Kuns Other [employer] Other 01-30-2022 12:00-0400 Diastolic blood pressure 82 mm[Hg] Griselda Kuns Other [employer] Other 01-30-2022 12:00-0400 Respiratory rate 16 /min Griselda Kuns Other [employer] Other 01-30-2022 12:00-0400 SaO2% (BldA) [Mass fraction] 99 % Griselda Kuns Other [employer] Other 01-30-2022 12:00-0400 Systolic blood pressure 146 mm[Hg] Griselda Kuns Other [employer] Other 12-26-2021 11:00-0400 Body height 172.72 cm Griselda Kuns Other [employer] Other 12-26-2021 11:00-0400 Body mass index (BMI) [Ratio] 26.61 kg/m2 Griselda Kuns Other [employer] Other 12-26-2021 11:00-0400 Body weight 79.38 kg Griselda Kuns Other [employer] Other 12-26-2021 11:00-0400 Diastolic blood pressure 80 mm[Hg] Griselda Kuns Other [employer] Other 12-26-2021 11:00-0400 Respiratory rate 16 /min Griselda Kuns Other [employer] Other 12-26-2021 11:00-0400 SaO2% (BldA) [Mass fraction] 96 % Griselda Kuns Other [employer] Other 12-26-2021 11:00-0400 Systolic blood pressure 166 mm[Hg] Griselda Kuns Other [employer] Other 12-05-2021 10:15-0400 Body height 172.72 cm Griselda Kuns Other [employer] Other 12-05-2021 10:15-0400 Body mass index (BMI) [Ratio] 269.71 kg/m2 Griselda Kuns Other [employer] Other 12-05-2021 10:15-0400 Body weight 804.69 kg Griselda Kuns Other [employer] Other 12-05-2021 10:15-0400 Diastolic blood pressure 72 mm[Hg] Griselda Kuns Other [employer] Other 12-05-2021 10:15-0400 Respiratory rate 18 /min Griselda Kuns Other [employer] Other 12-05-2021 10:15-0400 SaO2% (BldA) [Mass fraction] 99 % Griselda Kuns Other [employer] Other 12-05-2021 10:15-0400 Systolic blood pressure 130 mm[Hg] Griselda Kuns Other [employer] Other 11-08-2021 11:15-0400 Body height 172.72 cm Griselda Kuns Other [employer] Other 11-08-2021 11:15-0400 Body mass index (BMI) [Ratio] 27.06 kg/m2 Griselda Kuns Other [employer] Other 11-08-2021 11:15-0400 Body weight 80.74 kg Griselda Kuns Other [employer] Other 11-08-2021 11:15-0400 Diastolic blood pressure 80 mm[Hg] Griselda Kuns Other [employer] Other 11-08-2021 11:15-0400 Respiratory rate 16 /min Griselda Kuns Other [employer] Other 11-08-2021 11:15-0400 SaO2% (BldA) [Mass fraction] 97 % Griselda Kuns Other [employer] Other 11-08-2021 11:15-0400 Systolic blood pressure 128 mm[Hg] Griselda Kuns Other [employer] Other 11-03-2021 09:38-0400 Body height 170.51 cm Griselda R Andreas Work Phone: [facility] Work Phone: 11-03-2021 09:38-0400 Body mass index (BMI) [Ratio] 27.05 kg/m2 Griselda R Kuns Work Phone: [facility] Work Phone: 11-03-2021 09:38-0400 Body surface area Derived from formula 1.91 m2 Griselda Hastings Work Phone: [facility] Work Phone: 11-03-2021 09:38-0400 Body temperature 98.2 [degF] Griselda Hastings Work Phone: [facility] Work Phone: 11-03-2021 09:38-0400 Body weight 78.65 kg Griselda Hastings Work Phone: [facility] Work Phone: 11-03-2021 09:38-0400 Diastolic blood pressure 67 mm[Hg] Griselda Hastings Work Phone: [facility] Work Phone: 11-03-2021 09:38-0400 Heart rate 63 /min Griselda Hastings Work Phone: [facility] Work Phone: 11-03-2021 09:38-0400 Respiratory rate 16 /min Griselda Hastings Work Phone: [facility] Work Phone: 11-03-2021 09:38-0400 SaO2% (BldA) [Mass fraction] 99 % Griselda Hastings Work Phone: [facility] Work Phone: 11-03-2021 09:38-0400 Systolic blood pressure 147 mm[Hg] Griselda Hastings Work Phone: [facility] Work Phone: 11-03-2021 09:38-0400 7 1 Griselda Hastings Work Phone: [facility] Work Phone: Comment on above: [employer] 11-01-2021 13:30-0400 Body height 172.72 cm Griseldakeith Mendezs Other [employer] Other 11-01-2021 13:30-0400 Body mass index (BMI) [Ratio] 26.61 kg/m2 Griseldakeith Mednezs Other [employer] Other 11-01-2021 13:30-0400 Body weight 79.38 kg Griseldakeith Mendezs Other [employer] Other 11-01-2021 13:30-0400 Diastolic blood pressure 78 mm[Hg] Griseldakeith Mendezs Other [employer] Other 11-01-2021 13:30-0400 Respiratory rate 18 /min Griseldakeith Mendezs Other [employer] Other 11-01-2021 13:30-0400 SaO2% (BldA) [Mass fraction] 99 % Griseldakeith Mendezs Other [employer] Other 11-01-2021 13:30-0400 Systolic blood pressure 140 mm[Hg] Griselda Andreas Other [employer] Other 10-24-2021 09:45-0400 Body height 172.72 cm Sheng Schneider Other [employer] Other 10-24-2021 09:45-0400 Body mass index (BMI) [Ratio] 26.76 kg/m2 Sheng Schneider Other [employer] Other 10-24-2021 09:45-0400 Body weight 79.83 kg Sheng Schneider Other [employer] Other 10-13-2021 09:50-0400 Body height 172 cm Racquel Cole MD Work Phone: [facility] 10-13-2021 09:50-0400 Body temperature 97.5 [degF] Racquel Cole MD Work Phone: [facility] 10-13-2021 09:50-0400 Body weight 81.28 kg Racquel Cole MD Work Phone: [facility] 10-13-2021 09:50-0400 Diastolic blood pressure 77 mm[Hg] Racquel Cole MD Work Phone: [facility] 10-13-2021 09:50-0400 Heart rate 70 /min Racquel Cole MD Work Phone: [facility] 10-13-2021 09:50-0400 Respiratory rate 16 /min Racquel Cole MD Work Phone: [facility] 10-13-2021 09:50-0400 SaO2% (BldA) [Mass fraction] 99 % Racquel Cole MD Work Phone: [facility] 10-13-2021 09:50-0400 Systolic blood pressure 152 mm[Hg] Racquel Cole MD Work Phone: [facility] 09-19-2021 10:45-0400 Body height 172.72 cm Griselda Hastings Other [employer] Other 09-19-2021 10:45-0400 Body mass index (BMI) [Ratio] 26.15 kg/m2 Griselda Hastings Other [employer] Other 09-19-2021 10:45-0400 Body weight 78.02 kg Griselda Hastings Other [employer] Other 09-19-2021 10:45-0400 Diastolic blood pressure 80 mm[Hg] Griselda Kuns Other [employer] Other 09-19-2021 10:45-0400 Respiratory rate 18 /min Griselda Kuns Other [employer] Other 09-19-2021 10:45-0400 SaO2% (BldA) [Mass fraction] 99 % Griselda Kuns Other [employer] Other 09-19-2021 10:45-0400 Systolic blood pressure 140 mm[Hg] Griselda Kuns Other [employer] Other 06-30-2021 13:30-0500 Body height 172.72 cm Griselda Kuns Other [employer] Other 04-14-2021 08:45-0400 Body height 172.72 cm Griselda Kuns Other [employer] Other 04-14-2021 08:45-0400 Body mass index (BMI) [Ratio] 25.85 kg/m2 Griselda Kuns Other [employer] Other 04-14-2021 08:45-0400 Body weight 77.11 kg Griselda Kuns Other [employer] Other 04-14-2021 08:45-0400 Diastolic blood pressure 80 mm[Hg] Griselda Kuns Other [employer] Other 04-14-2021 08:45-0400 Respiratory rate 16 /min Griselda Kuns Other [employer] Other 04-14-2021 08:45-0400 SaO2% (BldA) [Mass fraction] 99 % Griselda Darling Other [employer] Other 04-14-2021 08:45-0400 Systolic blood pressure 124 mm[Hg] Griselda Hastings Other [employer] Other Encounters Encounter Date Encounter Type Care Provider Facility Start: 02-26-2025 End: 02-26-2025 Patient encounter procedure Griselda Hastings DO -[facility] [place] Work Phone: Start: 02-26-2025 End: 02-26-2025 ambulatory Griselda Hastings DO Work Phone: [place] Work Phone: Start: 02-19-2025 Patient encounter procedure Griseldakeith Mendezs DO Work Phone: [facility] Start: 02-19-2025 End: 02-19-2025 ambulatory Griselda Hastings DO Work Phone: [facility] Work Phone: Start: 02-19-2025 End: 02-19-2025 Patient encounter procedure Griselda Hastings DO -[facility] Work Phone: Start: 02-18-2025 Non-patient / Non-visit Mayra Arias DO -[facility] Work Phone: Start: 02-13-2025 End: 02-13-2025 ambulatory DEBRA [facility] Start: 02-09-2025 End: 02-09-2025 ambulatory Sarina Ramsey MD Facility:[facility] Start: 02-04-2025 End: 02-04-2025 ambulatory OZIEL CADENA Not Available Comment on above: Acute pain of right shoulder (Primary Dx); Nerve root and plexus disorder, unspecified; Acute pain of left shoulder Start: 02-04-2025 End: 02-04-2025 Bamboo flowsheet Oziel Cadena MD Work Phone: [facility] Start: 02-04-2025 End: 02-04-2025 Bamboo flowsheet Oziel Cadena MD Work Phone: [facility] Start: 01-27-2025 Non-patient / Non-visit Sarina daniels MD -[facility] Work Phone: Start: 01-26-2025 End: 01-26-2025 ambulatory Sarina Ramsey MD Facility:[facility] Start: 01-12-2025 End: 01-12-2025 ambulatory Griselda Hastings DO Work Phone: [facility] Work Phone: Start: 01-12-2025 End: 01-12-2025 Patient encounter procedure Solomon Mullins APRN [facility] Work Phone: Start: 01-08-2025 End: 01-08-2025 Bamboo flowsheet Anahi Northeim PA Work Phone: [facility] Start: 01-08-2025 End: 01-08-2025 Bamboo flowsheet Anahi Northeim PA Work Phone: [facility] Start: 01-08-2025 End: 01-08-2025 Office outpatient visit 15 minutes Anahi Northeim PA Work Phone: [facility] Comment on above: Melanocytic nevus of trunk (Primary Dx); Seborrheic keratosis; Inflamed seborrheic keratosis; Actinic keratosis; Capillary angioma; History of SCC (squamous cell carcinoma) of skin Start: 01-08-2025 End: 01-08-2025 ambulatory ANAHI NORTHEIM Not Available Start: 12-29-2024 End: 12-29-2024 ambulatory XIAOFEI HARRIS Not Available Start: 12-24-2024 End: 12-24-2024 Bamboo flowsheet Oziel Cadena MD Work Phone: [facility] Start: 12-24-2024 End: 12-24-2024 Bamboo flowsheet Oziel Cadena MD Work Phone: [facility] Start: 12-24-2024 End: 12-24-2024 Clinical Support Oziel Cadena MD Work Phone: [facility] Comment on above: Nerve root and plexu s disorder, unspecified (Primary Dx); Acute pain of left shoulder Start: 2024 End: 2024 Patient encounter procedure Griselda Kuns DO Work Phone: [facility] Start: 2024 End: 2024 ambulatory Griselda Kuns DO Work Phone: [place] Work Phone: Start: 11-19-2024 End: 11-19-2024 ambulatory Griselda Kuns DO Work Phone: [facility] Work Phone: Start: 11-19-2024 End: 11-19-2024 Patient encounter procedure Griselda Kuns DO Work Phone: [facility] Work Phone: Start: 11-17-2024 End: 11-17-2024 ambulatory Griselda Kuns DO Work Phone: [facility] Work Phone: Start: 11-17-2024 End: 11-17-2024 Patient encounter procedure Griselda Kuns DO Work Phone[facility] Work Phone: Start: 11-12-2024 End: 11-12-2024 Bamboo flowsheet Oziel Cadena MD Work Phone: [facility] Start: 11-12-2024 End: 11-12-2024 Bamboo flowsheet Oziel Cadena MD Work Phone: [facility]OLOG[facility] Start: 11-12-2024 End: 11-12-2024 Clinical Support Oziel Cadena MD Work Phone: [facility] Comment on above: Nerve root and plexu s disorder, unspecified (Primary Dx); Acute pain of left shoulder Start: 11-07-2024 End: 11-07-2024 ambulatory RACQUEL COLE Facility:[facility] Start: 11-05-2024 Non-patient / Non-visit Griselda Hastings DO Work Phone: [facility] Work Phone: Start: 11-05-2024 End: 11-05-2024 Admission to same day surgery center Griselda Hastings DO Work Phone: [place] Work Phone: Start: 11-05-2024 End: 11-05-2024 ambulatory Imad Asaad Facility:[facility] Start: 11-03-2024 End: 11-03-2024 Telephone encounter Racquel Cole MD Work Phone: Hematology/Oncology Comment on above: Orders Start: 11-03-2024 Non-patient / Non-visit Griselda Hastings DO Work Phone: [facility] Physician 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] Start: 10-27-2024 End: 10-27-2024 ambulatory Griselda Kuns DO Work Phone: [facility] Work Phone: Start: 10-27-2024 End: 10-27-2024 Patient encounter procedure Griselda Kuns DO Work Phone: [facility] Work Phone: Start: 10-21-2024 End: 10-21-2024 Subsequent hospital visit by physician Rad External Film EF RAD EXTERNAL FILM VIRTUAL Comment on above: Arrived Start: 10-21-2024 End: 10-21-2024 ambulatory [place] Start: 10-13-2024 End: 10-13-2024 Office outpatient visit 40 minutes Doretha Harris MD Work Phone: [facility] Comment on above: Status post cervical spinal fusion (Primary Dx) Start: 10-13-2024 End: 10-13-2024 ambulatory [facility] Start: 10-10-2024 End: 10-10-2024 ambulatory Griselda Kuns DO Work Phone: [facility] Work Phone: Start: 10-10-2024 End: 10-10-2024 Patient encounter procedure Griselda Kuns DO Work Phone: [facility] Work Phone: Start: 10-10-2024 End: 10-10-2024 Patient encounter procedure Griselda Kuns DO Work Phone: [facility]-XRay [facility] [place] Work Phone: Start: 10-10-2024 End: 10-10-2024 ambulatory Griselda Kuns DO Work Phone: [place] Work Phone: Start: 10-07-2024 End: 10-07-2024 Patient encounter procedure Griselda Kuns DO Work Phone: [facility]-Lab [facility] [place] Work Phone: Start: 10-07-2024 End: 10-07-2024 ambulatory Griselda Kuns DO Work Phone: [place] Work Phone: Start: 10-06-2024 End: 10-06-2024 Emergency department patient visit Griselda Kuns DO Work Phone: [place] Work Phone: Start: 09-22-2024 End: 09-22-2024 ambulatory Sarina Ramsey MD Facility:[facility] Start: 09-20-2024 End: 09-20-2024 Emergency department patient visit Griselda Kuns DO Work Phone: [place] Work Phone: Start: 09-15-2024 End: 09-15-2024 ambulatory Sarina Ramsey MD Facility:[facility] [place] Start: 09-11-2024 End: 09-11-2024 Bamboo flowsheet Oziel Cadena MD Work Phone: [facility] Start: 09-11-2024 End: 09-11-2024 Bamboo flowsheet Oziel Cadena MD Work Phone: [facility] Start: 09-11-2024 End: 09-11-2024 Clinical Support Oziel Cadena MD Work Phone: [facility] Comment on above: Nerve root and plexu s disorder, unspecified (Primary Dx) Start: 09-11-2024 End: 09-11-2024 Patient encounter procedure Griselda Kuns DO Work Phone: [facility] Surg Work Phone: Start: 09-11-2024 End: 09-11-2024 ambulatory Griselda Kuns DO Work Phone: [facility] Work Phone: Start: 07-31-2024 End: 07-31-2024 Bamboo flowsheet Ozile Cadena MD Work Phone: [facility] Start: 07-31-2024 End: 07-31-2024 Bamboo flowsheet Oziel Cadena MD Work Phone: [facility] Start: 07-31-2024 End: 07-31-2024 Clinical Support Oziel Cadena MD Work Phone: [facility] Comment on above: Nerve root and plexu s disorder, unspecified (Primary Dx) Start: 07-28-2024 End: 07-28-2024 ambulatory Sarina Ramsey MD Facility:[facility] Start: 07-07-2024 End: 07-07-2024 [facility]ulatory [facility] Start: 07-03-2024 End: 07-03-2024 ambulatory Griselda Hastings DO Work Phone: [facility] Work Phone: Start: 07-03-2024 End: 07-03-2024 Patient encounter procedure Griselda Hastings DO Work Phone: [facility] Family Medicine [place] Work Phone: Start: 07-02-2024 End: 07-02-2024 Bamboo flowsheet Oziel Cadena MD Work Phone: [facility] Start: 07-02-2024 End: 07-02-2024 Bamboo flowsheet Oziel Cadena MD Work Phone: [facility] Start: 07-02-2024 End: 07-02-2024 Clinical Support Oziel Cadena MD Work Phone: [facility] Comment on above: Nerve root and plexu s disorder, unspecified (Primary Dx) Start: 06-30-2024 End: 06-30-2024 Postop follow up visit related to original px Doretha Hraris MD Work Phone: [facility] Comment on above: Status post cervical spinal fusion (Primary Dx) Start: 06-30-2024 End: 06-30-2024 ambulatory [facility] Start: 06-24-2024 End: 06-24-2024 Patient encounter procedure Griselda Hastings DO Work Phone: [facility]-XRay [facility] Work Phone: Start: 06-24-2024 End: 06-24-2024 ambulatory Griseldakeith Hastings DO Work Phone: [place] Work Phone: Start: 05-21-2024 End: 05-21-2024 Bambojake flowspeggy Cadena MD Work Phone: [facility] Start: 05-21-2024 End: 05-21-2024 Lorenza flowsheet Oziel Cadena MD Work Phone: [facility] Start: 05-21-2024 End: 05-21-2024 Clinical Support Oziel Cadena MD Work Phone: [facility] Comment on above: Other nerve root and plexus disorders (Primary Dx); Cervical paraspinal muscle spasm; Cervical stenosis of spinal canal Start: 04-30-2024 End: 04-30-2024 Postop follow up visit related to original px Solomon Narayanan PA-C Work Phone: [facility] Comment on above: Cervical radiculopat hy (Primary Dx); Status post cervical spinal fusion; Acute postoperative pain; Muscle spasms of neck Start: 04-30-2024 End: 04-30-2024 [facility] Amb[facility] Start: 04-28-2024 End: 04-28-[address] [facility] Work Phone: Start: 04-28-2024 End: 04-28-2024 Patient encounter procedure [facility] Cardiology Work Phone: Start: 04-09-2024 End: 04-10-2024 ambulatory [place] Start: 04-09-2024 End: 04-10-2024 Evaluation and management of inpatient Doretha Harris MD Work Phone: [facility] Kassandra Chu 4 Comment on above: Cervical radiculopat hy (Primary Dx); Senile osteoporosis Start: 04-01-2024 End: 04-01-[address] [facility] Work Phone: Start: 04-01-2024 End: 04-01-2024 Patient encounter procedure [facility] Family Medicine [place] Work Phone: Start: 03-31-2024 End: 03-31-2024 Subsequent hospital visit by physician Rad External Film EF RAD EXTERNAL FILM VIRTUAL Comment on above: Arrived Start: 03-31-2024 End: 03-31-2024 ambulatory [place] Start: 03-26-2024 End: 03-26-2024 ambulatory [place] Start: 03-19-2024 End: 03-19-2024 [facility] Start: 02-13-2024 End: 02-13-2024 Subsequent hospital visit by physician [facility] X-[facility] [place] Comment on above: Cervical radiculopat hy Start: 02-13-2024 End: 02-13-2024 ambulatory [facility] Start: 02-13-2024 End: 02-13-2024 ambulatory [facility] Start: 02-11-2024 End: 02-12-2024 ambulatory [place] Start: 02-11-2024 End: 02-11-2024 ambulatory [place] Start: 02-11-2024 End: 02-11-2024 Subsequent hospital visit by physician Daniel [id number] Cr Nonv1 Holter/Ecg Resource [facility] Comment on above: Cervical radiculopat hy; Senile osteoporosis Start: 02-04-2024 End: 02-04-2024 ambulatory GRISELDA R KUNS [facility] Start: 01-31-2024 End: 01-31-[address] [facility] Work Phone: Start: 01-31-2024 End: 01-31-2024 Patient encounter procedure [facility] Family Medicine [facility] Work Phone: Start: 01-03-2024 End: 01-03-2024 Office outpatient new 60 minutes Doretha Harris MD Work Phone: [facility] Comment on above: Cervical radiculopat hy (Primary Dx); Senile osteoporosis Start: 12-13-2023 End: 12-13-2023 Office outpatient visit 40 minutes Helder Jack MD Work Phone: [facility] 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) Start: 12-13-2023 End: 12-13-2023 ambulatory HELDER JACK [facility] Start: 12-13-2023 End: 12-13-2023 Subsequent hospital visit by physician [facility] 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) Start: 12-13-2023 End: 12-13-2023 ambulatory SHIMON HEATON [facility] Start: 12-12-2023 End: 12-12-2023 Office outpatient new 45 minutes Solomon Narayanan PA-C Work Phone: [facility] Comment on above: Cervical radiculopat hy (Primary Dx); Occipital neuralgia of left side; Balance problem Start: 12-03-2023 End: 12-03-2023 ambulatory DO Griselda Kuns Work Phone: [facility] Work Phone: Start: 12-03-2023 End: 12-03-2023 Patient encounter procedure DO Griselda Kuns Work Phone: [facility] Work Phone: Start: 11-02-2023 End: 11-02-2023 Office outpatient visit 25 minutes Racquel Cole MD Work Phone: Hematology/Oncology Comment on above: 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) Start: 10-29-2023 End: 10-29-2023 ambulatory DO Griselda Kuns Work Phone: [facility] Work Phone: Start: 10-29-2023 End: 10-29-2023 Patient encounter procedure DO Griselda Kuns Work Phone: [facility] Work Phone: Start: 10-26-2023 Non-patient / Non-visit DO Katy tt Kuns Work Phone: [facility] Physician 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 Work Phone: Start: 10-09-2023 End: 10-09-2023 Patient encounter procedure DO Griselda Kuns Work Phone: [facility]Ray [facility] Work Phone: Start: 10-05-2023 End: 10-05-2023 Office outpatient new 60 minutes Helder Jack MD Work Phone: [facility] [place] Comment on above: Brainstem lesion (Pr imary Dx); Pontine glioma (Multi) Start: 09-19-2023 End: 09-19-2023 Subsequent hospital visit by physician Rad External Film EF RAD EXTERNAL FILM VIRTUAL Comment on above: Arrived Start: 09-05-2023 End: 09-05-2023 ambulatory DO Griselda Kuns Work Phone: [facility] Work Phone: Start: 09-05-2023 End: 09-05-2023 Patient encounter procedure DO Griselda Kuns Work Phone: [facility] Cardiology Work Phone: Start: 09-05-2023 End: 09-05-2023 ambulatory DO Griselda Kuns Work Phone: [facility] Work Phone: Start: 09-05-2023 End: 09-05-2023 Patient encounter procedure DO Griselda Kuns Work Phone: [facility] Physician [facility] Vascular Surgery Work Phone: Start: 08-15-2023 End: 08-15-2023 Patient encounter procedure DO Griselda Kuns Work Phone: [facility] Physician [facility] Family Medicine [place] Work Phone: Start: 08-02-2023 End: 08-02-2023 ambulatory DO Griselda Kuns Work Phone: [facility] Work Phone: Start: 08-02-2023 End: 08-02-2023 Patient encounter procedure DO Griselda Kuns Work Phone: [facility] Physician [facility] Family Medicine [place] Work Phone: Start: 07-26-2023 Chart abstracting Nikole Mota SENIOR SALES OPERATIONS MANAGER Work Phone: [facility] 210 Start: 07-19-2023 Bamboo flowsheet Nikole Mota SENIOR SALES OPERATIONS MANAGER Work Phone: [facility] Start: 07-19-2023 Bamboo flowsheet Nikole Mota SENIOR SALES OPERATIONS MANAGER Work Phone: [facility] Start: 07-18-2023 End: 07-21-20[address] [facility] Start: 07-02-2023 End: 07-02-2023 ambulatory Griselda Kuns Other [employer] Other Start: 07-02-2023 Office outpatient vi sit 25 minutes Griselda Kuns [facility] Start: 07-02-2023 End: 07-02-2023 Patient encounter procedure DO Griselda Kuns Work Phone: [facility] Work Phone: Start: 05-31-2023 End: 05-31-2023 ambulatory Griselda Kuns Other [employer] Other Start: 05-31-2023 Office outpatient vi sit 25 minutes Griselda Kuns [facility] Start: 05-30-2023 Office outpatient vi sit 15 minutes Ruddy Harvey [facility] Vascular Surgery Start: 05-30-2023 End: 05-30-2023 ambulatory DO Griselda Kuns Work Phone: [place] [employer] Other Start: 05-30-2023 End: 05-31-2023 Patient encounter procedure DO Griselda Kuns Work Phone: [facility]-Ultrasound [facility] Vascular Start: 05-30-2023 End: 05-30-2023 Patient encounter procedure DO Griselda Kuns Work Phone: [facility] Vascular Surgery Work Phone: Start: 05-15-2023 End: 05-15-2023 ambulatory Lilliam Kamla Other [employer] Other Start: 05-15-2023 Office outpatient vi sit 25 minutes Lilliam Kamla [facility] Card[facility] Start: 05-15-2023 Telephone encounter Lilliam CHENG [employer] Senior Manager Insurance Start: 05-15-2023 End: 05-15-2023 Patient encounter procedure DO Griselda Kuns Work Phone: [facility] Card[facility] Work Phone: Start: 05-07-2023 End: 05-07-2023 Admission to same day surgery center DO Griselda Kuns Work Phone: [facility]-Interventional Radiology Work Phone: Start: 05-07-2023 End: 05-07-2023 ambulatory DO Griselda Kuns Work Phone: [facility] Work Phone: Start: 05-04-2023 End: 05-04-2023 ambulatory DO Griselda Kuns Work Phone: [facility] Work Phone: Start: 05-04-2023 End: 05-04-2023 Patient encounter procedure DO Griselda Kuns Work Phone: [facility]-CT Scan [facility] [place] Work Phone: Start: 05-03-2023 End: 05-03-2023 ambulatory Ruddy Harvey Other [employer] Other Start: 05-03-2023 Office outpatient ne w 45 minutes Ruddy Harvey [facility] Vascular Surgery Start: 05-03-2023 Telephone encounter Ruddy craft [facility] [employer] Senior [employer] Start: 05-01-2023 End: 05-01-2023 ambulatory Griselda Kuns Other [employer] Other Start: 05-01-2023 Office outpatient vi sit 25 minutes Griselda Kuns [facility] Start: 04-25-2023 End: 04-25-2023 ambulatory DO Griselda Kuns Work Phone: [facility] Work Phone: Start: 04-25-2023 End: 04-25-2023 Patient encounter procedure DO Griselda Kuns Work Phone: [place]-Ultrasound [facility] [place] Work Phone: Start: 04-12-2023 End: 04-12-2023 ambulatory Lilliam Grecooroge Other [employer] Other Start: 04-12-2023 Telephone encounter Lilliam Kamla [facility] Card[facility] Start: 04-11-2023 End: 04-11-2023 ambulatory Lilliam Kamla Other [employer] Other Start: 04-11-2023 Office outpatient ne w 45 minutes Lilliam Kamla [facility] Start: 04-10-2023 End: 04-10-2023 ambulatory Griselda Kuns Other [employer] Other Start: 04-10-2023 Telephone encounter Griselda Kuns [facility] Start: 03-30-2023 End: 03-30-2023 ambulatory DO Griselda Kuns Work Phone: [place] Work Phone: Start: 03-30-2023 End: 03-30-2023 Patient encounter procedure DO Griselda Kuns Work Phone: [place]-Lab [facility] [place] Work Phone: Start: 03-21-2023 End: 03-21-2023 Emergency department patient visit DO Griselda Kuns Work Phone: [place] Work Phone: Start: 03-15-2023 End: 03-15-2023 ambulatory Griselda Kuns Other [employer] Other Start: 03-15-2023 Office outpatient vi sit 25 minutes Griselda Kuns [facility] Start: 03-08-2023 End: 03-08-2023 ambulatory Griselda Kuns Other [employer] Other Start: 03-08-2023 Office outpatient vi sit 25 minutes Griselda Kuns [facility] Start: 02-26-2023 End: 02-26-2023 Emergency department patient visit DO Griselda Kuns Work Phone: [place] Work Phone: Start: 12-28-[address] BRET Lawrence ity:UNKNOWN Start: 12-05-2022 End: 12-05-2022 ambulatory Griselda Kuns Other [employer] Other Start: 12-05-2022 Office outpatient vi sit 25 minutes Griselda Kuns [facility] Start: 11-15-2022 End: 11-15-2022 ambulatory DO Griselda Kuns Work Phone: [place] Work Phone: Start: 11-15-2022 End: 11-15-2022 Patient encounter procedure DO Griselda Kuns Work Phone: [place]-MRI [address] Work Phone: Start: 10-27-2022 End: 10-27-2022 Subsequent hospital visit by physician Arrival Time Radiology Work Phone: Radiology [facility] Comment on above: Malignant neoplasm o f head, 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] Start: 10-24-2022 End: 10-24-2022 ambulatory DO Griselda Kuns Work Phone: [place] Work Phone: Start: 10-24-2022 End: 10-24-2022 Patient encounter procedure DO Griselda Kuns Work Phone: [place]-Lab [place] Work Phone: Start: 09-28-2022 End: 09-28-2022 ambulatory FLORES R SULLINGER Facility:[facility] Start: 09-22-2022 End: 09-22-2022 Subsequent hospital visit by physician Jonelle Hernandez (I-Stat/3t) Work Phone: Radiology Comment on above: 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] Start: 09-18-2022 Telephone encounter Kelly ghosh PA-C Work Phone: [facility] Wall Comment on above: Patient Question Start: 09-13-2022 End: 09-13-2022 Patient encounter procedure Kelly Perez PA-C Work Phone: [facility] Comment on above: NPH (normal pressure hydrocephalus) (HCC) (Primary Dx) Start: 08-31-2022 End: 08-31-2022 ambulatory Griselda Kuns Other [employer] Other Start: 08-31-2022 Office outpatient vi sit 25 minutes Griselda Kuns [facility] Start: 08-01-2022 End: 08-01-2022 ambulatory Griselda Kuns Other [employer] Other Start: 08-01-2022 Office outpatient vi sit 25 minutes Griselda Kuns [facility] Start: 07-17-2022 End: 07-17-2022 ambulatory DO Griselda Kuns Work Phone: [facility] Work Phone: Start: 07-17-2022 End: 07-17-2022 Patient encounter procedure DO Griselda Kuns Work Phone: [facility]-XRay [facility] [place] Work Phone: Start: 07-14-2022 End: 07-14-2022 Patient encounter procedure DO Griselda Kuns Work Phone: [facility]-CT Scan [facility] [place] Work Phone: Start: 06-28-2022 End: 06-28-2022 ambulatory Trish Blades Other [employer] Other Start: 06-28-2022 Office outpatient ne w 45 minutes Trish Blades [facility] Neurosurgery Start: 05-26-2022 End: 05-26-2022 ambulatory Griselda Kuns Other [employer] Other Start: 05-26-2022 Office outpatient vi sit 25 minutes Griselda Kuns [facility] Start: 05-17-2022 End: 05-17-2022 ambulatory DO Griselda Kuns Work Phone: [place] Work Phone: Start: 05-17-2022 End: 05-17-2022 Discharged Recurring DO Griselda Kuns Work Phone: [place]-Physical Therapy [address] Start: 04-27-2022 Registered Recurring DO Griselda Kuns Work Phone: [place]-Physical Therapy [address] Start: 04-16-2022 End: 04-17-2022 Emergency department patient visit DO Griselda Kuns Work Phone: [place]Emergency Room Start: 04-10-2022 End: 04-10-2022 ambulatory Griselda Kuns Other [facility] [employer] Other Start: 04-10-2022 Telephone encounter Griselda Kuns [facility] Start: 04-06-2022 End: 04-06-2022 Emergency department patient visit DO Griselda Kuns Work Phone: [place]-Emergency Room Start: 03-27-2022 Telephone encounter Asya Reynolds RN Hematology/Oncology Comment on above: Appointment Start: 03-22-2022 End: 03-22-2022 ambulatory Griselda Kuns Other [employer] Other Start: 03-22-2022 Telephone encounter [facility]uns [facility] Start: 03-16-2022 End: 03-16-2022 ambulatory Griselda Kuns Other [employer] Other Start: 03-16-2022 Office outpatient vi sit 25 minutes [facility] Start: 03-16-2022 Telephone encounter Self [facility] Comment on above: Triage (Internal Ref erral--old) Start: 03-09-2022 End: 03-09-2022 ambulatory Griselda Kuns Other [employer] Other Start: 03-09-2022 Telephone encounter Griselda Kuns [facility] Start: 03-07-2022 End: 03-07-2022 ambulatory Griselda Kuns Other [employer] Other Start: 03-07-2022 Telephone encounter Griselda Kuns [facility] Start: 03-03-2022 Telephone encounter Griselda Kuns [facility] Start: 03-03-2022 End: 03-03-2022 ambulatory DO Griselda Kuns Work Phone: [employer] Other Start: 03-03-2022 End: 03-03-2022 Discharged Recurring DO Griselda Kuns Work Phone: [place] [address] Start: 03-03-2022 Registered Recurring DO Griselda Kuns Work Phone: [place] [address] Start: 02-07-2022 End: 02-07-2022 ambulatory Griselda Kuns Other [employer] Other Start: 02-07-2022 Telephone encounter Griselda Kuns [facility] Start: 01-30-2022 End: 01-30-2022 ambulatory Griselda Kuns Other [employer] Other Start: 01-30-2022 Office outpatient vi sit 25 minutes Griselda Kuns [facility] Start: 01-12-2022 End: 01-12-2022 ambulatory Griselda Kuns Other [employer] Other Start: 01-12-2022 Telephone encounter Griselda Kuns [facility] Start: 12-26-2021 End: 12-26-2021 ambulatory Griselda Kuns Other [employer] Other Start: 12-26-2021 Office outpatient vi sit 25 minutes Griselda Kuns [facility] Family Medicine [facility] Start: 12-23-2021 End: 12-23-2021 ambulatory Griselda Kuns Other [employer] Other Start: 12-23-2021 Telephone encounter Griselda Kuns [facility] Start: 12-05-2021 End: 12-05-2021 ambulatory Griselda Kuns Other [employer] Other Start: 12-05-2021 Office outpatient vi sit 25 minutes Griselda Kuns [facility] Family Medicine [facility] Start: 12-05-2021 Telephone encounter Griselda Kuns [facility] Start: 11-22-2021 End: 11-22-2021 ambulatory Griselda Kuns Other [employer] Other Start: 11-22-2021 Telephone encounter Griselda Kuns [facility] Start: 11-21-2021 Office outpatient vi sit 15 minutes Griselda R Kuns Work Phone: [id number] Work Phone: Start: 11-09-2021 End: 11-09-2021 ambulatory Griselda Kuns Other [employer] Other Start: 11-09-2021 Telephone encounter Griselda Hastings [facility] Start: 11-08-2021 End: 11-08-2021 ambulatory Griselda Hastings Other [employer] Other Start: 11-08-2021 Office outpatient vi sit 25 minutes Griselda Andreas [facility] Start: 11-03-2021 Office consultation new/estab patient 60 min Griselda R Darling Work Phone: [facility] Work Phone: Start: 11-01-2021 End: 11-01-2021 ambulatory Griselda Hastings Other [employer] Other Start: 11-01-2021 Office outpatient vi sit 25 minutes Griseldakeith Hastings [facility] Start: 10-31-2021 End: 10-31-2021 ambulatory Sheng Schneider Other [employer] Other Start: 10-31-2021 Telephone encounter Sheng Clark [facility] Start: 10-27-2021 End: 10-27-2021 ambulatory Racquel Cole MD Work Phone: Hematology/Oncology Comment on above: 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); Lung nodules; Malignant neoplasm of head, face and neck (HCC) Start: 10-27-2021 End: 10-27-2021 Telemedicine consultation with patient Racquel Cole MD Work Phone: [place] Start: 10-24-2021 End: 10-24-2021 ambulatory Sheng Schneider Other [employer] Other Start: 10-24-2021 Office outpatient ne w 30 minutes Sheng Schneider [facility] Neurosurgery Start: 10-13-2021 Telephone encounter Racquel kapoor MD Work Phone: [facility] Comment on above: Referral Information (Neurosurgery) Start: 10-13-2021 End: 10-13-2021 ambulatory Racquel Cole MD Work Phone: Hematology/Oncology Comment on above: Glioma of brain (HCC ) (Primary Dx); Lung nodules; 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) Start: 10-13-2021 End: 10-13-2021 Patient encounter procedure Racquel Cole MD Work Phone: [place] Start: 10-06-2021 End: 10-06-2021 ambulatory Griselda Kuns Other [employer] Other Start: 10-06-2021 Telephone encounter Asya Kumar RN Hematology/Oncology Comment on above: Results Start: 10-06-2021 End: 10-06-2021 Subsequent hospital visit by physician Arrival Time Radiology Work Phone: Radiology Pet CT Comment on above: Malignant neoplasm o f head, 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] Start: 09-29-2021 End: 09-29-2021 ambulatory Griselda Kuns Other [employer] Other Start: 09-29-2021 Telephone encounter Griselda Kuns [facility] Start: 09-27-2021 End: 09-27-2021 ambulatory Griselda Kuns Other [employer] Other Start: 09-27-2021 Telephone encounter Griselda Kuns [facility] Start: 09-19-2021 End: 09-19-2021 ambulatory Griselda Kuns Other [employer] Other Start: 09-19-2021 Office outpatient vi sit 25 minutes Griselda Kuns [facility] Start: 09-12-2021 End: 09-12-2021 ambulatory Griselda Kuns Other [employer] Other Start: 09-12-2021 Telephone encounter Griselda Kuns [facility] Start: 09-08-2021 End: 09-08-2021 ambulatory Griselda Kuns Other [employer] Other Start: 09-08-2021 Telephone encounter Griselda Kuns [facility] Start: 06-30-2021 End: 06-30-2021 ambulatory Griselda Kuns Other [employer] Other Start: 06-30-2021 Office outpatient vi sit 15 minutes Griselda Kuns [facility] Start: 06-30-2021 Telephone encounter Griselda Kuns [facility] Start: 06-29-2021 End: 06-29-2021 ambulatory Griselda Kuns Other [employer] Other Start: 06-29-2021 Nursing evaluation o f patient and report Griselda Kuns [facility] Start: 04-19-2021 End: 04-19-2021 ambulatory Griselda Kuns Other [employer] Other Start: 04-19-2021 Nursing evaluation o f patient and report Griselda Kuns [facility] Start: 04-19-2021 Telephone encounter Griselda Kuns [facility] Start: 04-14-2021 Office outpatient vi sit 15 minutes Griselda Kuns [facility] Start: 10-01-2020 End: 10-01-2020 Patient encounter procedure Griselda Kuns Work Phone: -Electrodiagnostics Start: 09-20-2020 End: 09-20-2020 Patient encounter procedure Griselda Andreas -Lab [facility] Start: 09-13-2020 End: 09-13-2020 Patient encounter procedure Griselda Andreas -XRay [facility] Procedures Date Procedure Procedure Detail Performing Clinician Start: 01-08-2025 End: 01-08-2025 CRYOTHERAPY SKIN LESION Anahi Soni Work Phone: Start: 2024 Plain chest X-ray Griselda Andreas DO Work Phone: Start: 11-19-2024 Quick Strep (POC) Griselda Andreas DO Work Phone: Start: 11-19-2024 RSV (POC) Griseldakeith Mendezs DO Work Phone: Start: 11-05-2024 Esophagogastroduodenoscopy Griselda [...] tomography of abdomen and pelvis with contrast Griseldakeith Mendezs DO Work Phone: Start: 10-06-2024 CT of soft tissues of neck with contrast Griseldakeith Mendezs DO Work Phone: Start: 09-20-2024 Respiratory Panel (PCR) Griselda Kuns DO Work Phone: Start: 09-20-2024 Plain chest X-ray Griselda Andreas DO Work Phone: Start: 09-11-2024 Ankle brachial pressure index Griselda Kuns DO Work Phone: Start: 06-24-2024 X-ray of cervical spine Griselda Andreas DO Work Phone: Start: 04-10-2024 Basic metabolic [...] 12 lds trcg only w/o i&r Doretha Harirs MD Work Phone: Start: 12-13-2023 Mri brain [...] Phone: Start: 10-09-2023 Plain chest X-ray DO Griseldakeith Hastings Work Phone: Start: 09-19-2023 Study Interpretation of outside study Ayah Gross MD Work Phone: Start: 09-05-2023 Ankle brachial pressure index DO Griselda cavanaugh Work Phone: Start: 05-07-2023 Lower limb angiography DO Griseldakeith Hastings Work Phone: Start: 05-04-2023 CT angiography of head DO Griselda Taomeeroge Work Phone: Start: 05-04-2023 CT angiography of neck vessels DO Griselda Taomeeroge Work Phone: Start: 04-25-2023 Pulse volume recorder pneumoplethysmography DO Griselda Taomeeroge Work Phone: Start: 02-26-2023 SARS Antigen (LFIA) DO Griseldakeith Hastings Work Phone: Start: 11-15-2022 MR lumbar spine wo con DO Griselda Taomeeroge Work Phone: Start: 11-15-2022 XR pre/post mri [...] CT of head without contrast DO Griselda Taomee roge Work Phone: Start: 04-16-2022 Plain chest X-ray [...] RSV Vaccine (1 - 1-dose 75+ series) [facility] Start: 04-10-2027 Diabetes Screening Diabetes Screening [facility] Start: 10-25-2026 Diabetes Screening Diabetes Screening [facility] Start: 02-12-2026 Screening for osteoporosis Bone Density Scan [facility] Start: 01-08-2026 End: 01-08-2026 Patient encounter procedure TRENT ZEE Start: 04-06-2025 End: 04-06-2025 Patient encounter procedure 04/06/2025 9:30 AM EDT Office Visit [facility] [address] [facility] [address] [place] [phone] Doretha Harris MD [address] [place] [address] [facility] Start: 03-18-2025 End: 03-18-2025 Clinical Support 03/18/2025 2:20 PM EDT Clinical Support [facility] [address] [place] [phone] Oziel Cadena MD [address] [facility] [address] [place] [phone] [facility] Start: 02-26-2025 Ankle brachial pressure index [facility] Start: 02-16-2025 Influenza vaccination [facility] Start: 02-04-2025 End: 02-04-2025 Clinical Support [facility] Comment on above: Arrived Start: 01-08-2025 End: 01-08-2025 Patient encounter procedure [facility] Comment on above: Arrived Start: 01-01-2025 End: 01-01-2025 Patient encounter procedure 01/01/2025 10:30 AM EDT Office Visit [facility] [address] [place] [phone] Anahi Franco PA [address] [place] [phone] [facility] Start: 12-24-2024 End: 12-24-2024 Clinical Support [facility] Comment on above: Arrived Start: 11-12-2024 End: 11-12-2024 Clinical Support [facility] Comment on above: Arrived Start: 11-07-2024 End: 11-07-2024 Follow-up encounter Hematology/Oncolog y Comment on above: [address] and lab Start: 11-05-2024 [facility] Start: 11-03-2024 End: 02-02-2025 Comprehensive metabolic 2000 panel - Serum or Plasma COMPREHENSIVE METABOLIC PANEL Lab Routine 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) Expected: 11/03/2024 (Approximate), Expires: 02/02/2025 [facility] Work Phone: Comment on above: Expected: 11/03/2024 (Approximate), Expi res: 02/02/2025 Start: 11-03-2024 End: 11-03-2024 Patient encounter procedure 11/03/2024 9:00 AM EDT Appointment Radiology Pet CT [address] [place] [address] [place] [address] Ct Chest and neck with contrast and lab Radiology Pet CT Comment on above: Ct Chest and neck with contrast and lab Start: 11-01-2024 End: 11-01-2024 CBC W Auto Differential panel - Blood COMPLETE BLOOD COUNT AND DIFFERENTIAL Lab Routine 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) Expected: 11/01/2024 (Approximate), Expires: 11/01/2024 [facility] Comment on above: Expected: 11/01/2024 (Approximate), Expi res: 11/01/2024 Start: 11-01-2024 End: 11-01-2024 Comprehensive metabolic 2000 panel - Serum or Plasma COMPREHENSIVE METABOLIC PANEL Lab Routine 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) Expected: 11/01/2024 (Approximate), Expires: 11/01/2024 [facility] Comment on above: Expected: 11/01/2024 (Approximate), Expi res: 11/01/2024 Start: 11-01-2024 End: 12-01-2024 CT Chest W contrast IV CT CHEST W IVCON Radiology Routine 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) Expected: 11/01/2024 (Approximate), Expires: 12/01/2024 [facility] Comment on above: Expected: 11/01/2024 (Approximate), Expi res: 12/01/2024 Start: 11-01-2024 End: 12-01-2024 CT Neck W contrast IV CT NECK SOFT TISSUE W IVCON Radiology Routine 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) Expected: 11/01/2024 (Approximate), Expires: 12/01/2024 [facility] Work Phone: Comment on above: Expected: 11/01/2024 (Approximate), Expi res: 12/01/2024 Start: 10-10-2024 X-ray of cervical spine XR cervical spine 2V [facility] Start: 10-10-2024 XR Cervical spine 2 Views [facility] Start: 10-06-2024 DIABETES SCREEN DIABETES SCREEN [facility] Start: 09-29-2024 End: 09-29-2024 Patient encounter procedure 09/29/2024 11:00 AM EDT Office Visit [facility] [address] [facility] [address] [place] [phone] Doretha Harris MD [address] [facility], [address] [facility] [place] [address] [facility] Start: 09-11-2024 End: 09-11-2024 Clinical Support 09/11/2024 10:40 AM EDT Clinical Support [facility] [address] [facility] [address] [place] [address] Oziel Cadena MD [address] [place] [address], [place] [phone] [facility] Start: 09-11-2024 Ankle brachial pressure index US ankle/arm indices [facility] Start: 07-31-2024 End: 07-31-2024 Clinical Support [facility] Comment on above: Arrived Start: 07-02-2024 End: 07-02-2024 Clinical Support [facility] Comment on above: Arrived Start: 06-30-2024 End: 06-30-2025 XR Cervical spine 2 or 3 Views XR cervical spine 2-3 views Imaging Routine Status post cervical spinal fusion Expected: 06/30/2024, Expires: 06/30/2025 [facility] Service Area Work Phone: Comment on above: Expected: 06/30/2024, Expires: Start: 06-30-2024 End: 06-30-2024 Patient encounter procedure [facility] Start: 05-21-2024 End: 05-21-2024 Clinical Support 05/21/2024 2:00 PM EST Clinical Support [facility] [address] [facility] [address] [place] [address] Oziel Cadena MD [address] [facility] [address] [place] [address], [place] [id number] Arrived [facility] Comment on above: Arrived Start: 05-16-2024 End: 05-16-2024 Patient encounter procedure 05/16/2024 9:15 AM EST Office Visit [facility] [address] [facility] [address] [place] [phone] Doretha Harris MD [address] [facility], [address] [place] [address] [facility] Start: 05-02-2024 End: 05-02-2024 Patient encounter procedure [facility] Start: 04-30-2024 End: 04-30-2025 XR Cervical spine 2 or 3 Views XR cervical spine 2-3 views Imaging Routine Cervical radiculopathy Status post cervical spinal fusion Expected: 04/30/2024, Expires: 04/30/2025 [facility] Service Area Work Phone: Comment on above: Expected: 04/30/2024, Expires: Start: 04-30-2024 End: 04-30-2024 Patient encounter procedure 04/30/2024 1:00 PM EST Office Visit [place] [id number] [facility] [address] [phone] Solomon Narayanan PA-C [address] [place], [place] [phone] [facility] Start: 04-09-2024 End: 04-09-2024 Admission to same day surgery center 04/09/2024 7:45 AM EDT - 04/09/2024 12:25 PM EDT Surgery [facility] [place] [address] [place] [address] Doretha Harris MD [address] [facility], [address] [place] [address] Fusion Spine Anterior Cervical and Discectomy C5-6, C6-7 [23954 (CPT )] [facility] [place] Comment on above: Fusion Spine Anterior Cervical and Disce ctomy C5-6, C6-7 [30111 (CPT )] Start: 04-09-2024 End: 04-09-2024 Arthrd ant interbody decompress cervical belw c2 Fusion Spine Anterior Cervical and Discectomy Cervical radiculopathy Senile osteoporosis 04/09/2024 7:45 AM EDT [facility] [place] Start: 04-09-2024 Subsequent hospital visit by physician 04/09/2024 7:45 AM EDT Hospital [place] [address] [place] [address] Doretha Harris MD [address] [facility], [address] [place] [address] [facility] [place] Start: 03-15-2024 DTaP/Tdap/Td Vaccines (2 - Td or Tdap) DTaP/Tdap/Td Vaccines (2 - Td or Tdap) [facility] Start: 03-15-2024 Urine microalbumin profile DTaP,Tdap,Td Vaccine (2 - Td or Tdap) [facility] Start: 03-11-2024 End: 03-11-2024 Patient encounter procedure 03/11/2024 11:30 AM EDT Office Visit [facility] [address] [facility] [address] [place] [address] Solomon Narayanan PA-C [address] [place], [place] [phone] [facility] Start: 03-03-2024 Influenza vaccination Influenza Vaccine (#1) [facility] Comment on above: Postponed from 02/16/2023 (Patient Refus ed) Start: 02-27-2024 End: 02-27-2024 Admission to same day surgery center [facility] [place] Comment on above: Anterior Cervical Discectomy and Fusion C5-6, C6-7 [68933 (CPT )] Start: 02-27-2024 End: 02-27-2024 Arthrd ant interbody decompress cervical belw c2 [facility] [place] Start: 02-27-2024 Subsequent hospital visit by physician [facility] [place] Start: 02-17-2024 COVID-19 Vaccine ( season) COVID-19 Vaccine ( season) [facility] Start: 02-17-2024 Covid-19 Vaccine ( season) Covid-19 Vaccine () [facility] Start: 02-17-2024 Covid-19 Vaccine ( season) Covid-19 Vaccine () [facility] Start: 02-17-2024 Influenza vaccination [facility] Start: 02-15-2024 End: 02-15-2024 Patient encounter procedure 02/15/2024 9:00 AM EDT Office Visit [address] [phone] Vincenzo Sanchez MD [address] [place] [address] [address], [address] [place] [address] [facility] Start: 02-13-2024 End: 02-13-2024 Patient encounter procedure 02/13/2024 11:00 AM EDT Appointment [place] [address] [place] [address] [facility] Start: 02-03-2024 End: 01-02-2025 Nicotine and Metabolites,S Nicotine and Metabolites,S Lab Routine Cervical radiculopathy Senile osteoporosis Expected: 02/03/2024 (Approximate), Expires: 01/02/2025 [facility] Work Phone: Comment on above: Expected: 02/03/2024 (Approximate), Expi res: 01/02/2025 Start: 01-03-2024 End: 01-02-2025 DXA Skeletal system.axial Views for bone density XR DEXA bone density axial skeleton w VFA Imaging Routine Senile osteoporosis Expected: 01/03/2024, Expires: 01/02/2025 [facility] Service Area Work Phone: Comment on above: Expected: 01/03/2024, Expires: 5 Start: 01-03-2024 End: 01-02-2025 XR Cervical spine 6 Views XR cervical spine complete 6+ views Imaging Routine Cervical radiculopathy Expected: 01/03/2024, Expires: 01/02/2025 [facility] Work Phone: Comment on above: Expected: 01/03/2024, Expires: 5 Start: 01-03-2024 End: 01-03-2024 Patient encounter procedure 01/03/2024 1:30 PM EDT Office Visit [facility] [address] [address] Doretha Harris MD [address] [facility], [address] [address] [facility] Start: 12-13-2023 End: 12-12-2024 MR Brain WO and W contrast IV MR brain w and wo IV contrast Imaging Routine Pontine glioma (Multi) Expected: 12/13/2023 (Approximate), Expires: 12/12/2024 [facility] Area Work Phone: Comment on above: Expected: 12/13/2023 (Approximate), Expi res: 12/12/2024 Start: 12-13-2023 End: 12-13-2023 Patient encounter procedure [facility] Start: 09-28-2023 End: 09-28-2023 Patient encounter procedure 09/28/2023 10:15 AM EDT Office Visit [facility] [address] [place] [phone] [place] [address] Department [place] [address] [facility] Start: 09-05-2023 Ankle brachial pressure index [facility] Start: 08-30-2023 End: 08-30-2023 Patient encounter procedure 08/30/2023 9:40 AM EDT Office Visit [facility] [address] [place] [address] Nikole Mota, SENIOR SALES OPERATIONS MANAGER [address] [place] [address], [place] [address] [facility] Start: 07-26-2023 End: 07-26-2023 Patient encounter procedure 07/26/2023 1:30 PM EST Procedure Visit [facility] [address] [place] [address], [place] [address] Nikole Mota, SENIOR SALES OPERATIONS MANAGER [address] [place] [address], [place] [address] [facility] [address] Start: 07-19-2023 End: 07-19-2023 Clinical Support 07/19/2023 1:30 PM EST Clinical Support [facility] [address] [place] [address] Nikole Mota, SENIOR SALES OPERATIONS MANAGER [address] [place] [address], [place] [address] Cervical dystonia [facility] Comment on above: Cervical dystonia Start: 06-18-2023 Behavioral Health Screening Behavioral Health Screening [facility] Start: 05-07-2023 Pulse volume recorder pneumoplethysmography US arterial pvr rest [facility] Start: 05-07-2023 [facility] Start: 05-07-2023 [facility] Start: 04-25-2023 Pulse volume recorder pneumoplethysmography US arterial pvr rest [facility] Start: 02-16-2023 COVID-19 Vaccine () COVID-19 Vaccine () [facility] Start: 02-16-2023 Influenza vaccination INFLUENZA (Season Ended) [facility] Start: 2022 RSV High Risk: (Elderly (60+) or Population) (1 - Risk 60-74 years 1-dose series) RSV High Risk: (Elderly (60+) or Population) (1 - Risk 60-74 years 1-dose series) [facility] Start: 2022 RSV patients and/or patients aged 60+ years (1 - 1-dose 60+ series) RSV patients and/or patients aged 60+ years (1 - 1-dose 60+ series) [facility] Start: 2022 RSV Vaccine (1 - 1-dose 60+ series) RSV Vaccine (1 - 1-dose 60+ series) [facility] Start: 10-30-2022 End: 10-30-2022 CBC W Auto Differential panel - Blood CBC + DIFF Lab Routine 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) Lung nodules Malignant neoplasm of head, face and neck (HCC) Expected: 10/30/2022 (Approximate), Expires: 10/30/2022 [facility] Work Phone: Comment on above: Expected: 10/30/2022 (Approximate), Expi res: 10/30/2022 Start: 10-30-2022 End: 10-30-2022 Comprehensive metabolic 2000 panel - Serum or Plasma COMP METABOLIC PANEL Lab Routine 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) Lung nodules Malignant neoplasm of head, face and neck (HCC) Expected: 10/30/2022 (Approximate), Expires: 10/30/2022 [facility] Work Phone: Comment on above: Expected: 10/30/2022 (Approximate), Expi res: 10/30/2022 Start: 10-30-2022 End: 11-29-2022 Ct soft tissue neck w/contrast material CT NECK SOFT TISSUE W IVCON Radiology Routine Malignant neoplasm of head, face and neck (HCC) Expected: 10/30/2022 (Approximate), Expires: 11/29/2022 [facility] Work Phone: Comment on above: Expected: 10/30/2022 (Approximate), Expi res: 11/29/2022 Start: 10-30-2022 End: 11-29-2022 Ct thorax w/contrast material CT CHEST W IVCON Radiology Routine Lung nodules Expected: 10/30/2022 (Approximate), Expires: 11/29/2022 [facility] Work Phone: Comment on above: Expected: 10/30/2022 (Approximate), Expi res: 11/29/2022 Start: 10-13-2022 Adult depression screening assessment DEPRESSION SCREENING [facility] Start: 07-17-2022 Aerobic Culture Aerobic Culture [facility] Start: 07-17-2022 Anaerobic Culture Anaerobic Culture [facility] Start: 07-17-2022 Microscopic observation [Identifier] in Unspecified specimen by Gram stain [facility] Start: 07-17-2022 Cerebrospinal fluid culture [facility] Start: 07-17-2022 End: 07-17-2022 [facility] Start: 07-17-2022 [facility] Start: 06-18-2022 DEPRESSION ASSESSMENT DEPRESSION ASSESSMENT [facility] Start: 04-16-2022 Plain chest X-ray XR ribs LT min 3V w [id number]* [facility] Start: 04-16-2022 XR Unspecified body region Views [facility] Start: 02-16-2022 Influenza vaccination [facility] Start: 10-14-2021 Adult depression screening assessment DEPRESSION SCREENING [facility] Start: 06-23-2021 COVID-19 VACCINE (3 - Booster for Pfizer series) COVID-19 VACCINE (3 - Booster for Pfizer series) [facility] Start: 06-18-2021 DEPRESSION ASSESSMENT DEPRESSION ASSESSMENT [facility] Start: 03-18-2021 COVID-19 VACCINE (3 - Booster for Pfizer series) COVID-19 VACCINE (3 - Booster for Pfizer series) [facility] Start: 2017 PROSTATE CANCER SCREENING DISCUSSION PROSTATE CANCER SCREENING DISCUSSION [facility] Start: 2017 Prostate specific antigen measurement Prostate Cancer Screening Discussion [facility] Start: 2012 Pneumococcal Vaccine: 50+ (1 of 1 - PCV) Pneumococcal Vaccine: 50+ (1 of 1 - PCV) [facility] Start: 2012 Screening for malignant neoplasm of lung Lung Cancer Screening [facility] Start: 2012 SHINGRIX VACCINE (1 of 2) SHINGRIX VACCINE (1 of 2) [facility] Start: 2012 Zoster Vaccines (1 of 2) Zoster Vaccines (1 of 2) [facility] Start: 11-25-2007 COLOGUARD (FIT-DNA) COLOGUARD (FIT-DNA) [facility] Start: 11-25-2007 Colonoscopy COLONOSCOPY [facility] Start: 11-25-2007 COLORECTAL CANCER SCREENING COLORECTAL CANCER SCREENING [facility] Start: 11-25-[address] COLONOGRAPHY [facility] Start: 11-25-2007 FECAL OCCULT BLOOD FECAL OCCULT BLOOD [facility] Start: 11-25-2007 Prostate specific antigen measurement Prostate Cancer Screening Discussion [facility] Start: 11-25-2007 Screening for malignant neoplasm of colon [facility] Start: 11-25-2007 SIGMOIDOSCOPY SIGMOIDOSCOPY [facility] Start: 1997 Lipid panel Lipid Screening [facility] Start: 1997 LIPID SCREEN LIPID SCREEN [facility] Start: 1981 Hepatitis A Vaccines (1 of 2 - Risk 2-dose series) Hepatitis A Vaccines (1 of 2 - Risk 2-dose series) [facility] Start: 1981 Pneumococcal vaccination Pneumococcal Vaccine (1 of 2 - PCV) [facility] Start: 1981 Urine microalbumin profile DTAP,TDAP,TD (1 - Tdap) [facility] Start: 1980 Anxiety Screening Anxiety Screening [facility] Start: 1980 Depression Screening Depression Screening [facility] Start: 1980 Diabetes mellitus screening Diabetes Screening [facility] Start: 1980 HEPATITIS C SCREENING HEPATITIS C SCREENING [facility] Start: 1980 Hepatitis C screening Hepatitis C Screening [facility] Start: 1980 HIV SCREENING HIV SCREENING [facility] Start: 1980 HIV screening HIV Screening [facility] Start: 1968 Pneumococcal Vaccine: Pediatrics (0 to 5 Years) and At-Risk Patients (6 to 64 Years) (1 of 2 - PCV) Pneumococcal Vaccine: Pediatrics (0 to 5 Years) and At-Risk Patients (6 to 64 Years) (1 of 2 - PCV) [facility] Start: 11-25-1963 MMR Vaccines (1 of 1 - Standard series) MMR Vaccines (1 of 1 - Standard series) [facility] Start: 1962 Annual wellness visit Welcome to Medicare Visit [facility] Start: 1962 HIV screening HIV Screening [facility] Start: 1962 Lipid panel Lipid Panel [facility] Start: 1962 Screening for malignant neoplasm of colon [facility] Start: 1962 Screening for osteoporosis Bone Density Scan [facility] Start: 1962 Yearly Adult Physical Yearly Adult Physical [facility] Ankle brachial pressure index [facility] Bacteria identified in Cerebral spinal fluid by Culture CSF CULT + STAIN Microbiology Routine NPH (normal pressure hydrocephalus) (HCC) Ordered: 09/13/2022 [facility] Work Phone: Comment on above: Ordered: 09/13/2022 Bacteria identified in Unspecified specimen by Aerobe culture [facility] Bacteria identified in Unspecified specimen by Anaerobe culture [facility] End: 04-12-2024 Basic metabolic 2000 panel - Serum or Plasma Basic metabolic panel Lab Routine Morning draw (Lab) for 3 Occurrences starting 04/10/2024 until 04/12/2024, 1 completed [facility] Work Phone: Comment on above: Morning draw (Lab) for 3 Occurrences sta rting 04/10/2024 until 04/12/2024, 1 completed End: 04-12-2024 CBC panel - Blood by Automated count CBC Lab Routine Morning draw (Lab) for 3 Occurrences starting 04/10/2024 until 04/12/2024, 1 completed [facility] Work Phone: Comment on above: Morning draw (Lab) for 3 Occurrences sta rting 04/10/2024 until 04/12/2024, 1 completed Cell count panel - C erebral spinal fluid CSF CELL COUNT Lab Routine NPH (normal pressure hydrocephalus) (HCC) Ordered: 09/13/2022 [facility] Work Phone: Comment on above: Ordered: 09/13/2022 Cell count, cerebros roberto fluid [facility] Comprehensive metabo lic 2000 panel - Serum or Plasma [facility] End: 04-09-2024 Continuous Pulse oximetry, In Phase 1 Continuous Pulse oximetry, In Phase 1 Respiratory Care Routine Continuous until discontinued starting 04/09/2024 [facility] Work Phone: Comment on above: Continuous until discontinued starting 1 Enolase.neuron speci fic [Mass/volume] in Serum or Plasma by Immunoassay [facility] Fungus identified in Unspecified specimen by Culture [facility] Glucose [Mass/volume ] in Cerebral spinal fluid [facility] Glucose [Mass/volume ] in Serum or Plasma POCT Glucose Point of Care Testing - Docked Device Routine As needed (Lab) until discontinued starting 04/09/2024 [facility] Work Phone: Comment on above: As needed (Lab) until discontinued start ing 04/09/2024 End: 04-09-2024 Incentive spirometry Instruct Incentive spirometry Instruct Respiratory Care Routine Once for 1 Occurrences starting 04/09/2024 until 04/09/2024 [facility] Work Phone: Comment on above: Once for 1 Occurrences starting 04/09/20 until 04/09/2024 IR LP FOR DRAINAGE (PRESSURE) IR LP FOR DRAINAGE (PRESSURE) Radiology Routine NPH (normal pressure hydrocephalus) (HCC) Ordered: 09/13/2022 [facility] Work Phone: Comment on above: Ordered: 09/13/2022 Meningitis+Encephali tis pathogens DNA and RNA panel - Cerebral spinal fluid by JER with non-probe detection [facility] End: 10-20-2023 Mri brain brain stem w/o w/contrast material MRI BRAIN WO/W IVCON Radiology Routine 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HCC) 1 Occurrences starting 09/20/2022 until 10/20/2023 [facility] Work Phone: Comment on above: 1 Occurrences starting 09/20/2022 until 10/20/[address] [facility] Work Phone: Patient referral [facility] Work Phone: Protein [Mass/volume ] in Cerebral spinal fluid [facility] End: 04-09-2024 Urethral Catheter Removal Urethral Catheter Removal Procedures Routine Once for 1 Occurrences starting 04/09/2024 until 04/09/2024 [facility] Work Phone: Comment on above: Once for 1 Occurrences starting 04/09/20 until 04/09/2024 Virus identified in Unspecified specimen by Culture [facility] End: 02-13-2024 XR Cervical spine 6 Views [facility] Service A hermila Work Phone: Comment on above: Once for 1 Occurrences starting 02/13/20 until 02/13/2024 XR Chest 2 Views XR chest 2 view s Imaging Routine Cervical radiculopathy Senile osteoporosis 02/13/2024 11:10 AM EDT [facility] Work Phone: XR Chest 2 Views [facility] Immunizations Immunization Date Immunization Notes Care Provider Fa cility 01-21-2021 COVID-19 Vaccine Pfi zer - Documentation Purposes Only Griselda Kuns Other [facility] 12-30-2020 COVID-19 Vaccine Pfi zer - Documentation Purposes Only Griselda Kuns Other [facility] 01-24-2016 KENALOG - 10 mg Griselda Kuns Other [facility] [employer] Other 01-27-2015 Toradol per 15 mg Griselda Kuns Other [facility] [employer] Other 03-15-2014 tetanus toxoid, redu julienne diphtheria toxoid, and acellular pertussis vaccine, adsorbed Griselda Kuns Other [facility] [employer] Other Payers Date Payer Category Payer Self-pay [id number] 2024 Medicare [id number]. [id number] 2024 Medicare [id number] 2023 Managed Care (Private) [facility] [id number]. [id number] 2022 Private Health Insurance [id number] 2.16.840.1.020149.19 2021 Private Health Insurance [facility] [employer] GENERIC [id number] 2021-Present [phone] [address] [place] [address] PPO [id number]. [id number] 2019 Medicaid [employer] [id number] 2019-Present [phone] [address] [place] [address] Medicaid [id number]. [id number] 2019 Medicaid [id number]. 1.13.159.2. [id number] 2019 Private Health Insurance 1.2 .840.290724.1.13.159.2. 7.3.908770.315 2019 Unknown [id number] 2019 Unknown 2019 Unknown [id number] 2.16.840.1.069697.19 1962 Unknown [id number] 2.16.840.1.845265.3.579.2. 693 1962 Unknown [id number] 2.16.840.1.217982.3.579.2. 182 1962 Unknown [id number] 2.16.840.1.719411.3.579.2. 182 1962 Unknown [id number] 2.16.840.1.589753.3.579.2. 1244 1962 Unknown [id number] 2.16.840.1.457488.3.579.2. 1244 1962 Unknown [id number] 2.16.840.1.053680.3.579.2. 1244 1962 Unknown [id number] 2.16.840.1.401206.3.579.2. 1244 1962 Unknown [id number] 2.16.840.1.585031.3.579.2. 1244 1962 Unknown [id number] 2.16.840.1.929385.3.579.2. 1244 1962 Unknown [id number] 2.16.840.1.450436.3.579.2. 1244 1962 Unknown [id number] 2.16.840.1.405071.3.579.2. 1244 1962 Unknown [id number] 2.16.840.1.717037.3.579.2. 1244 1962 Unknown [id number] 2.16.840.1.936756.3.579.2. 1244 1962 Unknown [id number] 2.16.840.1.617231.3.579.2. 1244 1962 Unknown [id number] 2.16.840.1.263646.3.579.2. 1246 1962 Unknown [id number] 2.16.840.1.615412.3.579.2. 1246 1962 Unknown [id number] 2.16.840.1.164155.3.579.2. 1246 1962 Unknown [id number] 2.16.840.1.394319.3.579.2. 1244 1962 Unknown [id number] 2.16.840.1.849090.3.579.2. 1244 1962 Unknown [id number] 2.16.840.1.797478.3.579.2. 1244 1962 Unknown [id number] 2.16.840.1.097649.3.579.2. 9 1962 Unknown [id number] 2.16.840.1.263033.3.579.2. 1258 1962 Unknown [id number] 2.16.840.1.268381.3.579.2. 1258 1962 Unknown [id number] 2.16.840.1.437435.3.579.2. 1258 1962 Unknown [id number] 2.16.840.1.283860.3.579.2. 9 1962 Unknown [id number] 2.16.840.1.422094.3.579.2. 1258 1962 Unknown [id number] 2.16.840.1.116640.3.579.2. 9 1962 Unknown [id number] 2.16.840.1.426314.3.579.2. 1258 1962 Unknown [id number] 2.16.840.1.245083.3.579.2. 1258 1962 Unknown [id number] 2.16.840.1.153286.3.579.2. 196 1962 Unknown [id number] 2.16.840.1.820618.3.579.2. 196 1962 Unknown [id number] 2.16.840.1.490050.3.579.2. 196 1962 Unknown [id number] 2.16.840.1.701444.3.579.2. 196 1962 Unknown [id number] 2.16.840.1.716199.3.579.2. 196 1962 Unknown [id number] 2.16.840.1.955960.3.579.2. 196 Private Health Insurance [id number] Unknown [id number] Unknown [id number] 2.16.840.1.560390.3.579.2. 531 Unknown [id number] 2.16840.1.271426.3.579.2. 531 Unknown [id number] 2.16.840.1.570882.3.579.2. 531 Unknown [id number] 2.16.840.1.502255.3.579.2. 531 Unknown [id number] 2.16840.1.201480.3.579.2. 531 Unknown [id number] 2.16840.1.411185.3.579.2. 531 Unknown [id number] 2.16840.1.022882.3.579.2. 531 Unknown [id number] 2.16840.1.644156.3.579.2. 531 Unknown [id number] 2.16840.1.129974.3.579.2. 531 Social History Date Type Detail Facility Start: 04-29-2018 End: 11-05-2024 Tobacco smoking status IDIS Smoker (finding) [facility] Start: 1960 Sex Assigned At Male F [facility] Start: 10-16-2019 Tobacco smoking status NHIS Ex-smoker [facility] Start: 06-18-1973 History of tobacco use Cigarette Smoker [facility] Start: 10-16-2019 End: 09-24-2024 Cigarettes smoked current (pack per day) - Reported 1.5 [facility] Start: 10-16-2019 End: 01-02-2024 Tobacco use and exposure Smokeless tobacco non-user [facility] Start: 10-14-2020 End: 01-08-2025 Alcohol intake Ex-drinker (finding) [facility] Start: 01-20-2019 History SDOH Alcohol Comment quit 2002 [facility] Start: 10-16-2019 Tobacco Comment quit smoking 01/2019 [facility] Start: 1960 Sex Assigned At Not on file [facility] Start: 10-03-2021 End: 10-13-2024 Exposure to SARS-CoV-2 (event) Not sure [facility] Start: 07-03-2023 End: 09-24-2024 Sex Assigned At [facility] Start: 03-10-2022 End: 03-20-2022 Exposure to SARS-CoV-2 (event) Unable to assess [facility] Work Phone: Start: 12-28-2022 End: 11-05-2024 Daily Smoker [facility] Start: 03-13-2023 Tobacco Comment 6-10 cigarettes/day [facility] Start: 09-20-2022 Gender identity Identifies as male gender (finding) [facility] Start: 09-20-2022 Sexual orientation Heterosexual (fin ding) [facility] Tobacco smoking status NHIS Tobacco smoking consumption unknown [facility] Work Phone: Start: 10-05-2023 End: 01-03-2024 Alcoholic beverage intake Lifetime non-drinker (finding) [facility] Work Phone: Adult Depression Screening Assessment 2 [facility] How often to you hav e a drink containing alcohol? Never [facility] In the past 12 months, was there a time when you were not able to pay the mortgage or rent on time? No [facility] Work Phone: Start: 04-28-2024 End: 11-25-2024 Sex Male (finding) [facility] NEGATED: Highlighted rowStart: NINF History of tobacco use Passive smoker [facility] Work Phone: Medical Equipment Procedure Code Equipment Code Equipment Origin al Text Equipment Identifier Dates Angiogram, lower extremity, left Multiple peripheral artery stent, bare-metal [id number] FDA Start: 05-07-2023 Allograft, Triad Lordotic 6 X 11 X 14 - [id number] - [id number] Start: 04-09-2024 Allograft, Triad Lordotic 6 X 11 X 14 - [id number] - [id number] Start: 04-09-2024 Plate, Acp, 1.6v , 2 Level, 34mm - [id number] Start: 04-09-2024 Screw, Acp, Self Drill, 3.5 X 17mm, Variable - [id number] Start: 04-09-2024 3.5 X 19mm Screw [id number] Start: 04-09-2024 Comment on above: Description: per juan carlos l only jdr 04/10 Goals Date Patient Goal Desired Activity /State Personal health goal Functional Status Date Assessment Result Facility 10-13-2024 Patient Health [facility] ionnaire 2 item (PHQ-2) [Reported] [facility] Work Phone: 10-13-2024 PHQ-9 quick depressi on assessment panel [Reported.PHQ] [facility] Work Phone: Clinical Notes 11-03-2008 to 02-19-2025 Note Date & Type Note Facility 02-19-2025 Evaluation note Authored February 19, 2025 5:18pm Sooner if needed, the ER if concerns,The above note written by Shilpi Lantigua LPN acting as human recorder, note dictated by Dr. Griselda Hastings [place] Work Phone: [phone]) 645-763708-20-2025 History of Present illness Narrative* Oziel Cadena MD - 02/04/2025 2:30 PM EDT Images from the original note were not included. Subjective Shantel Melendez is a 64 y.o. male who presents for severe neck pain History of Present Illness The patient presents for left shoulder pain. He reports experiencing pain in his left shoulder, which occasionally extends to the right side. The pain is particularly severe today. He has been unable to work for the past 3.5 years due to this condition. MEDICATIONS PREVIOUS MEDS: Aldactone Review of Systems Const: Denies appetite change, fever, chills. Allergy: Denies medication reaction. Ocular: Denies visual acuity change. ENT: Denies hearing change. Endoc: Denies weight loss. Resp: Denies dyspnoea, wheezing. Cardiac: Denies angina, palpitations. GI: Denies nausea, vomiting. Haem: Denies bleeding. : Denies incontinence. MSK: Denies arthralgias, joint oedema. Derm: Denies rash, hair loss. Neuro: Denies ataxia, tremor. Also see HPI for elements of ROS documented therein and for details of positive findings, which shall supersede the foregoing. Objective Blood pressure (!) 133/93, pulse (!) 113, weight 159 lb. Physical Exam Musculoskeletal: Tenderness noted in the left shoulder. Results Brachial Plexus injection After explaining the [...] reviewed, the consent was signed. Palpated the bilateral posterior edge of the acromion the most tender area is recognized and marked for the injection site. Using sterile technique, and surface anesthetic; a 25 gauge 1 1/2 spinal needle was inserted inferior to the posterolateral acromion and directed laterally into the subacromial space, aiming for the anterolateral corner of the acromion.The needle was then withdrawn about 1mm. The patient received an injection of 3cc of Bupivacaine 0.5% and 1 cc of Dexamethasone 4mg in a fan-like distribution. The needle was removed, and the patient handled the procedure well. A band-Aid was applied on the injection site. The Procedure was done by Dr. Oziel Cadena. This note was scribed by Jocelyn Arango(Neisha) acting under the direction of Oziel Cadnea MD. Thecontent has been reviewed and confirmed for accuracy by Oziel Cadena MD Assessment & Plan 1. Left shoulder pain and neck pain He reports significant pain in the left shoulder, with occasional tenderness on the right side. Thepain is described as severe and persistent, affecting his daily activities. He has been out of workfor 3.5 years due to this condition. An injection was administered today to alleviate the pain. documented in this encounterProgress West [id number] Evaluation note* Diagnosis Onset Date Resolution Status Admit Date Colon polyps acute January 12, 025 3:14pm Dyspepsia acute January 12 3:14pm GERD (gastroesophageal reflu x disease) acute January 12, 2025 3:14pm Anxiety and depression acute Se ptember 2024 10:28am Burning sensation acute Septemb er 2024 10:28am Colon polyps acute February 10:28am Hyperlipidemia acute February 19, 2025 10:28am Medicare annual wellness vis it, initial acute February 19 10:28am Nicotine dependence with current use acute February 19 10:28am PAD (peripheral artery disease) acut e February 19, 2025 10:28am Screening for prostate cancer acute February 19, 2025 10:28am [facility] Work Phone: 1(439) 219-667407-24-2025 History of Present illness Narrative* QUENTIN Vail - 01/08/2025 10:20 AM EDT Skin Check Location: Patient requests a skin [...] INFLAMED SEBORRHEIC KERATOSIS Left Wrist - Anterior [place] and brown stuck on verrucous scaly papule [...] office if abnormal redness or tenderness develops atthe treatment site. Cryotherapy today, see procedure note. Diagnosis: Inflamed seborrheic keratosis Indication: Inflamed Consent: Verbal consent was obtained and risks were discussed, including, but not limited to risks of scarring, darker or histological illustrator pigmentary changes, recurrence, incomplete removal and infection. [...] lesions that fail to resolve should be re- evaluated. Cryotherapy performed today; see procedure note Diagnosis: Actinic keratosis Indication: Precancerous Location: see skin exam Consent: Verbal consent was obtained and risks were discussed, including, but not limited to risks of scarring, darker or histological illustrator pigmentary changes, recurrence, incomplete removal and infection. [...] 1 year, skin check documented in this encounterProgress West [id number] History of Present illness Narrative* Oziel Cadena MD - 12/24/2024 2:00 PM EDT Images from the original note were not included. Subjective Shantel Melendez is a 64 y.o. male who presents for Neck pain History of Present Illness The patient presents for evaluation of neck pain. He reports persistent neck pain, which he describes as severe. The pain is primarily located in hisshoulder, with some discomfort extending to his neck. He has not undergone ablation therapy due to a previous surgical intervention. Additionally, he experiences tightness on the right side and soreness in the anterior bursa. Swimming recently resulted in a sunburn on his lower right arm. He has been considering the use of a spinal cord stimulator, as suggested by his aircraft painter, and is scheduled to see his [...] reviewed and confirmed for accuracy by Oziel aCdena MD Assessment & Plan 1. Neck pain. Since his last visit, he reports that his pain level was at a 6 today, which had decreased to a 1 for about 4 to 5 weeks but has since increased to a 5 or 6 over the past 6 weeks. He experienced morethan a 50% reduction in pain with the last set of injections. A trial of a peripheral nerve stimulator is recommended, as it may help with the pain down his arm. If the peripheral nerve stimulator isnot effective, a spinal cord stimulator may be [...] injection was administered today. documented in this [facility]06-04-2025 Evaluation note* Author Shilpi Lantigua [facility] Authored November 19, 2024 2:36p m Sooner if needed, the ER if concerns,The above note written by Shilpi Lantigua LPN acting as human recorder, note dictated by Dr. Griselad Hastings [place] Work Phone: [phone] 556-502405-28-2025 History of Present illness Narrative* Oziel Cadena [...] ezetimibe (ZETIA) 10 mg, Oral, Daily HYDROcodone-acetaminophen ([place]) 5-325 MG tablet take 1 tablet orally [...] Depression: Not at risk (11/05/2024) Received from [facility] PHQ-2 PHQ-2 score: 2 REVIEW OF [...] Ana Luisa's absent. Ankle clonus absent. Coordination Qxmnnb-yx-tiro, rapid alternating movements and blin-kr-pyfw normal bilaterally without dysmetria. Gait Normal casual, [...] the injections if needed. documented in this encounterProgress West [id number] NoteHNO ID: [id number] Author: RACQUEL COLE MD Service: ? Author Type: Physician Type: Progress Notes Filed: 11/07/2024 11:09 Note Text: NAME: DilanShantel CLINIC NO.: [id number] DATE OF SERVICE: November 07, 2024 (Curtis) Some elements in this clinic note that are critical to medical decision making have been carefully reviewed and included from a prior clinic note dated: November 02, 2023 (Curtis) Referring Provider: Griselda Hastings DO Additional Clinicians involved in Shantel Melendez's care: Dr Kimberly Nichole ENT, Dr. 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 10/05/2021 - MRI Brain: [facility] There is T2 and T2 flair hyperintense [...] microvascular ischemic change. Brainst (more content not included)...[facility]05-19-2025 History of Present illness Narrative* Curtis Da [...] PATIENT PRESENTS WITH AN IMPLANTABLE OR ATTACHED VAULT CUSTODIAN: No RADIOLOGY DEPARTMENT: CT; Exam(s) Completed: Chest and Neck PERIPHERAL IV DATA: Site assessment: Clean,Dry and Intact, Site disposition Discontinued SIGNED BY: RT Craig(R) November 03, 2024 8:32 AM [facility] NoteHNO ID: [id number] Author: CURTIS DA SILVA RN Service: ? [...] Melendez DATE: November 03, 2024 TIME: 8:13 [facility]05-19-2025 NoteHNO ID: [id number] Author: SALLY DOYLE RT(R) Service: ? Author [...] PATIENT PRESENTS WITH AN IMPLANTABLE OR ATTACHED VAULT CUSTODIAN: No RADIOLOGY DEPARTMENT: CT; Exam(s) Completed: Chest and Neck PERIPHERAL IV DATA: Site assessment: Clean,Dry and Intact, Site disposition Discontinued SIGNED BY: Sally Doyle, RT(R) November 03, 2024 8:32 [facility]05-19-2025 Telephone encounter Note* Telephone Encounter - Curtis Da Silva RN - 11/03/2024 7:49 AM EDT Please sign pended labs for 1 year f/u-will draw with CT today Thank You! Curtis Da Silva RN [facility]05-19-2025 Miscellaneous Notes* Telephone Encounter - Curtis Da Silva RN - 11/03/2024 7:49 AM EDT Please sign pended labs for 1 year f/u-will draw with CT today Thank You! Curtis Da Silva RN documented in [facility] History of Present illness Narrative* Doretha [...] assess the C7 screw. Doretha Harris MD Loss Prevention/Safety District Manager of Neurosurgery [facility] Spine [facility] Neuroscience ICU Office: [phone] [1] Past Surgical History: Procedure Laterality Date [...] 60 capsule, Rfl: 0 documented in this [facility] Work Phone: 1(182) 769-641804-21-2025 Radiology [facility] [place] [address] [place] [address] CT Scan Report Signed Patient: Shantel Melendez MR#: [id number] : 1960 Acct:[id number] Age/Sex: 63 / M ADM Date: 5 Loc: ER Room: Type: [facility] ER Attending Dr: Copies [...] Dorothy Eubanks M.D.10/06/2024 4:08 PM Dictation Location: [place] [address] Transcribed By: [facility] 10/06/24 1608 Dictated By: Dorothy Eubanks MD 10/06/24 1556 Signed By: 10/06/24 1603 [facility] Work Phone: 1(429) 616-619404-21-2025 Radiology [facility] [place] [address] [place] [address] CT Scan Report Signed Patient: Shantel Melendez MR#: [id number] : 1960 Acct:[id number] Age/Sex: 63 / M ADM Date: 5 Loc: ER Room: Type: [facility] ER Attending Dr: Copies [...] Dorothy Eubanks M.D.10/06/2024 3:56 PM Dictation Location: [place] [address] Transcribed By: [facility] 10/06/24 1556 Dictated By: Dorothy Eubanks MD 10/06/24 1551 Signed By: 10/06/24 1556 [facility] Work Phone: 1(175) 946-440803-27-2025 Evaluation note* Diagnosis Onset Date Resolution Status Admit Date Current every day smoker acute September 11, 2024 8:53am PAD (peripheral artery disease) acut e September 11, 2024 8:53am Right leg claudication acute [facility] 2024 8:53am [place] Work Phone: [phone] Evaluation note* Diagnosis Onset Date Resolution Status Admit Date Current every day smoker acute September 11, 2024 8:53am PAD (peripheral artery disease) acut e September 11, 2024 8:53am Right leg claudication acute [facility] 2024 8:53am Cardiac arrhythmia acute October 272024 9:37am Essential hypertension acute [place] 2024 9:37am Hyperlipidemia acute October 27, 2024 9:37am 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, 2024 9:37am PAD (peripheral artery disease) sophy mnoe October 27, 2024 9:37am [facility] Work Phone: [phone] Evaluation note* Diagnosis Onset Date Resolution Status [...] 1:57pm Dysphagia acute November 17, 2024 1:57pm [facility] Work Phone: [phone] 127-802203-27-2025 Evaluation note* Diagnosis Onset Date Resolution Status Admit Date Current every day smoker acute September 11, 2024 8:53am PAD (peripheral artery disease) acut e September 11, 2024 8:53am Right leg claudication acute [facility] 2024 8:53am Abdominal pain acute September 1:02pm [...] infection) acute November 19, 2024 2 :26pm [facility] Work Phone: [phone] History of Present illness Narrative* Oziel Cadena [...] ezetimibe (ZETIA) 10 mg, Oral, Daily HYDROcodone-acetaminophen ([place]) 5-325 MG tablet take 1 tablet orally [...] Depression: Not at risk (06/30/2024) Received from [facility] PHQ-2 Patient Health Questionnaire-2 Score: 2 REVIEW [...] Ana Luisa's absent. Ankle clonus absent. Coordination Arxzbs-mx-giif, rapid alternating movements and stbs-ty-ylzs normal bilaterally without dysmetria. Gait Normal casual, [...] the injections if needed. documented in this encounterProgress West [id number] History of Present illness Narrative* Oziel Cadena [...] ezetimibe (ZETIA) 10 mg, Oral, Daily HYDROcodone-acetaminophen ([place]) 5-325 MG tablet take 1 tablet orally [...] Past Medical History: Diagnosis Date Anxiety Depression ([facility]) HCVD (hypertensive cardiovascular disease) (CMS/HCC) Headache History [...] Depression: Not at risk (06/30/2024) Received from [facility] PHQ-2 Patient Health Questionnaire-2 Score: 2 REVIEW [...] the injections if needed. documented in this encounterProgress West [id number] Evaluation note* Author Shilpi Lantigua [facility] Authored July 03, 2024 4 :44pm Sooner if needed, the ER if concerns,The above note written by Shilpi Lantigua LPN acting as human recorder, note dictated by Dr. Griselda Hastings [facility] Work Phone: 1(642) 526-991501-15-2025 History of Present illness Narrative* Oziel Cadena [...] ezetimibe (ZETIA) 10 mg, Oral, Daily HYDROcodone-acetaminophen ([place]) 5-325 MG tablet take 1 tablet orally [...] Depression: Not at risk (06/30/2024) Received from [facility] PHQ-2 Patient Health Questionnaire-2 Score: 2 REVIEW [...] injections at that time. documented in this encounterProgress West [id number] History of Present illness Narrative* Doretha Harris [...] another set of XR. Doretha Harris MD Loss Prevention/Safety District Manager of Neurosurgery [facility] Neuroscience ICU Office: [phone] Scribe Attestation By signing my name below, I, Shira Sen, Scribe, attest that this documentation has been preparedunder the direction and in the presence of Doretha Harris MD. documented in this [facility] Work Phone: [phone]) 994-269112-04-2024 History of Present illness Narrative* Oziel Cadena [...] ezetimibe (ZETIA) 10 mg, Oral, Daily HYDROcodone-acetaminophen ([place]) 5-325 MG tablet take 1 tablet orally [...] Depression: Not at risk (04/09/2024) Received from [facility] PHQ-2 Patient Health Questionnaire-2 Score: 0 REVIEW [...] his injections if needed. documented in this encounterProgress West [id number] History of Present illness Narrative* Solomon Narayanan PA-C - 04/30/2024 1:00 PM EST Images from the original note were not included. [facility] Department of Neurological Surgery Post Operative Patient [...] CAD (coronary artery disease) Peripheral vascular disease ([facility]) Past Medical History: Diagnosis Date Anxiety Cataract s/p excision of left Cervical radiculopathy Chronic pain disorder Coronary artery disease Depression Dysphagia thin liquids Hypertension NPH (normal pressure hydrocephalus) (Multi) PAD (peripheral artery disease) ([facility]) s/p stent (05/2023) on ASA 81mg Peripheral vascular disease ([facility]) Pontine lesion watchful waiting Pulmonary nodule Skin [...] 28 tablet, Rfl: 0 Allergies Allergen Reactions Keflet Hives The above clinical summary has been dictated [...] directly. Sincerely, RICH Hernandez PA-C Associate Physician General Road Supervisor, Neurosurgery Clinical Loss Prevention/Safety District Manager [facility] [place] [address] [place] [address] documented in this [facility] Work Phone: [phone]) [phone] Evaluation note* Diagnosis Onset Date Resolution Status [...] prostate cancer acute July 03, 2024 9:23am [facility] Work Phone: [phone] Hospital course Narrative* Aaron Gallo PA-C - [...] HYDROcodone-acetaminophen 5-325 mg tablet; Commonly known as: [place] tiZANidine 4 mg capsule; Commonly known as: Zanaflex Outpatient Follow-Up Future Appointments Date Time Provider Department Center 04/30/2024 1:00 PM Solomon Narayanan PA-C [id number] [place] 05/02/2024 9:00 AM [facility] SCC PET MRI CMCSCCMRI [facility] [place] 05/02/2024 10:00 AM Helder Jack MD [id number] [facility] 06/30/2024 9:00 AM Doretha Harris MD [id number] [place] Aaron Gallo PA-C documented in this [facility] Work Phone: [phone]) 251-644310-24-2024 History of Present illness Narrative* Nikole Lezama, PharmD - 04/10/2024 12:11 PM EDT Pharmacy Medication History Review Shantel Melendez is a 63 y.o. male admitted for Cervical radiculopathy. Pharmacy reviewed the patient's euxel-ye-lkwvvukqb medications and allergies for accuracy. Medications ADDED: norco Medications CHANGED: Tizanidine nightly to as needed Medications REMOVED: Diamox Albuterol The list below reflects the updated CONTINUITY READER list. Prior to Admission Medications Prescriptions Last Dose Informant HYDROcodone-acetaminophen ([place]) 5-325 mg tablet Self Sig: Take 1.5 [...] Report Patient interview (good historian-required some prompting) [facility] medical note 01/29 Additional Comments: none Nikole Lezama PharmD Transitions of Care Pharmacist 04/10/24 Secure Chat preferred If no response call [phone] or USEREADY Rec * Tori Johnson OT - 04/10/2024 11:57 AM EDT Occupational Therapy Evaluation Patient Name: Shantel Melendez Today's Date: 04/10/2024 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 [...] LUE LUE: Within Functional Limits Outcome Measures: [facility] Daily Activity Putting on and taking [...] 11:57 AM TORI JOHNSON OT Rehab Office: [phone] * Tia Caceres PT - 04/10/2024 10:33 AM EDT Physical Therapy Physical Therapy Evaluation Patient Name: Shantel Melendez Department: [place] [address] Room: [address] [place] [address] Today's Date: 04/10/2024 Time Calculation Start Time: [...] Prior Function Per Pt/Caregiver Report Level of [place]: (independent ambulation in/outdoors no device, independent stairclimbing as needed, no falls) ADL Assistance: Independent Homemaking Assistance: Independent Ambulatory Assistance: Independent 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 Learner: Significant [...] documented in the note. [facility] Work Phone: [phone]) 142-322110-23-2024 Plan of care note* Care Plan - [...] goals for the shift include pain management. [facility] Work Phone: [phone]) [phone] Miscellaneous Notes* Care Plan - Elizabeth Esposito [...] (B) Operative Note Date: 04/09/2024 OR Location: [facility] OR Name: Shantel Melendez, : 1960, Age: 63 y.o., , Sex: male Diagnosis Pre-op Diagnosis * Cervical radiculopathy [M54.12] * Senile osteoporosis [M81.0] Post-op Diagnosis * Cervical radiculopathy [M54.12] * Senile osteoporosis [M81.0] Procedures Fusion Spine Anterior Cervical and Discectomy C5-6, C6-7 15339 - [facility] ARTHRD ANT INTERBODY DECOMPRESS CERVICAL BELW C2 VA ARTHRD ANT INTERBODY DECOMPRESS CERVICAL BELW C2 [94245] VA ARTHRD ANT INTERDY CERVCL BELW C2 EA ADDL NTRSPC [03602] VA ALLOGRAFT FOR SPINE SURGERY ONLY STRUCTURAL [55689] VA MICROSURG TQS REQ USE OPERATING MICROSCOPE [35606] Surgeons * Doretha Harris - Primary Resident/Fellow/Other General Road Supervisor: Surgeons and Role: * Chicho Bryan MD - Resident - Assisting * Rojas Edwards MD - Resident - Assisting Procedure Summary Anesthesia: General ASA: III Anesthesia Staff: Anesthesiologist: Fred Cheek MD C-AA: Shelly Mullins Capp, [facility]; NAVEEN Reddy IVONE: Jamee Woodall Estimated Blood [...] 85 mL Specimen: No specimens collected Staff: Quality Consultant: Derrell Scrub Person: Beverly Scrub Person: Shaina Drains and/or Catheters: Closed/Suction Drain 1 Neck Bulb 10 Fr. (Active) Urethral Catheter Double-lumen;Non-latex 16 Fr. (Active) Tourniquet Times: Implants: Implants Type Name Action Serial No. Spinal Hardware SCREW, DISTRACTION, 14 MM - [id number] Used, Not Implanted Spinal Hardware ALLOGRAFT, TRIAD LORDOTIC 6 X 11 X 14 - [id number] - [id number] Implanted [id number] Spinal Hardware ALLOGRAFT, TRIAD LORDOTIC 6 X 11 X 14 - [id number] - [id number] Implanted [id number] Spinal Hardware PLATE, ACP, 1.6V, 2 LEVEL, 34MM - [id number] Implanted Spinal Hardware SCREW, ACP, SELF DRILL, 3.5 X 17MM, VARIABLE - [id number] Implanted 3.5 X 19MM SCREW Implanted Findings: [...] then placed our self-retaining retractor in and [place] pins in and placed the disc space [...] 04/09/2024 4:50 PM EDT documented in this [facility]Ohio [facility] Work Phone: [phone]) 510-362710-23-2024 Nurse Note* Shantelle Pacheco RN - 04/09/2024 7:03 PM EDT Patient transferred from PACU to [id number] via stretcher in stable condition. Patient oriented to room, bed, and call light. Skin assessment witnessed by Brianda Dowling RN. Will continue to monitor. [facility]10-23-2024 Nurse Note* Shantelle Pacheco RN - 04/09/2024 7:03 PM EDT Patient transferred from PACU to [id number] via stretcher in stable condition. Patient oriented to room, bed, and call light. Skin assessment witnessed by Brianda Dowling RN. Will continue to monitor. documented in this encounterUnSumma Health Work Phone: [phone]) [phone] Hospital Note* Hospital Course - Aaron Gallo PA-C - 04/09/2024 5:04 PM EDT 63M h/p HTN, CAD, PAD s/p stent on ASA81, pontine glioma, tongue cancer p/w LUE radiculopathy, 04/09 s/p C5-7 ACDF 04/10 PT/OT DC recs no needs, post operative xray shows good position, Drain removed [facility] Work Phone: [phone]) [phone] Note* Op Note - Chicho Bryan MD - 04/09/2024 2:30 PM EDT Fusion Spine Anterior Cervical and Discectomy C5-6, C6-7 (B) Operative Note Date: 04/09/2024 OR Location: [facility] OR Name: Shantel Melendez, : 1960, Age: 63 y.o., , Sex: male Diagnosis Pre-op Diagnosis * Cervical radiculopathy [M54.12] * Senile osteoporosis [M81.0] Post-op Diagnosis * Cervical radiculopathy [M54.12] * Senile osteoporosis [M81.0] Procedures Fusion Spine Anterior Cervical and Discectomy C5-6, C6-7 40075 - VA ARTHRD ANT INTERBODY DECOMPRESS CERVICAL BELW C2 VA ARTHRD ANT INTERBODY DECOMPRESS CERVICAL BELW C2 [34421] VA ARTHRD ANT INTERDY CERVCL BELW C2 EA ADDL NTRSPC [45906] VA ALLOGRAFT FOR SPINE SURGERY ONLY STRUCTURAL [] VA MICROSURG TQS REQ USE OPERATING MICROSCOPE [31202] Surgeons * Doretha Harris - Primary Resident/Fellow/Other General Road Supervisor: Surgeons and Role: * Chicho Bryan MD [...] 85 mL Specimen: No specimens collected Staff: Quality Consultant: Derrell Scrub Person: Beverly Scrub Person: Shaina Drains and/or Catheters: Closed/Suction Drain 1 Neck Bulb 10 Fr. (Active) Urethral Catheter Double-lumen;Non-latex 16 Fr. (Active) Tourniquet Times: Implants: Implants Type Name Action Serial No. Spinal Hardware SCREW, DISTRACTION, 14 MM - [id number] Used, Not Implanted Spinal Hardware ALLOGRAFT, TRIAD LORDOTIC 6 X 11 X 14 - [id number] - [id number] Implanted [id number] Spinal Hardware ALLOGRAFT, TRIAD LORDOTIC 6 X 11 X 14 - [id number] - [id number] Implanted [id number] Spinal Hardware PLATE, ACP, 1.6V, 2 LEVEL, 34MM - [id number] Implanted Spinal Hardware SCREW, ACP, SELF DRILL, 3.5 X 17MM, VARIABLE - [id number] Implanted 3.5 X 19MM SCREW Implanted Findings: [...] then placed our self-retaining retractor in and [place] pins in and placed the disc space [...] Harris MD at 04/09/2024 4:50 PM EDT [facility] Work Phone: [phone]) 337-780210-23-2024 Attending History and physical note* Rojas Edwards MD - 04/09/2024 12:22 PM EDT H&P reviewed. The patient was examined and there are no changes to the H&P. Cosigned by Doretha Harris MD at 04/09/2024 12:53 PM EDT Source Note - Rick BAILEY Mckinney-DAIRY AND FOOD LABORATORY ASSISTANT - 03/26/2024 10:30 AM EDT Images from [...] pressure hydrocephalus) (Multi) PAD (peripheral artery disease) ([facility]) s/p stent (05/2023) on ASA 81mg Peripheral vascular disease ([facility]) Pontine lesion watchful waiting Pulmonary nodule Skin [...] Flowsheet Row Pre-Admission Testing from 02/11/2024 in [facility] Questionnaire Series Submission from 02/06/2024 in [facility] with Generic Provider Laura Can [...] or washing dishes? 2.7 filed at 02/11/2024 44369.7 filed at 02/06/2024 0032 Can you do [...] 02/06/2024 003 DASI SCORE 18.95 filed at 02/11/2024 141 39.45 filed at 02/06/2024 003 METS Score (Will be calculated only when all the questions are answered) 5.1 filed at 02/11/2024 1418 7.6 filed at 02/06/2024 003 Capasiyai DVT Assessment Flowsheet Row Pre-Admission Testing from 02/11/2024 in [facility] DVT Score 11 filed at 02/11/2024 1506 BMI 30 or less filed at 02/11/2024 1506 RETIRED: Current Status Major surgery planned, lasting over 3 hours filed at 02/11/2024 1506 RETIRED: History Prior major surgery, Previous malignancy filed at 02/11/2024 1506 RETIRED: Age 60-75 years filed at 02/11/2024 1506 Modified Frailty Index Flowsheet Row Pre-Admission Testing from 02/11/2024 in [facility] Non-independent functional status (problems with dressing, bathing, [...] Flowsheet Row Pre-Admission Testing from 02/11/2024 in [facility] High-Risk Surgery (Intraperitoneal, Intrathoracic,Suprainguinal vascular) 0 filed [...] Flowsheet Row Pre-Admission Testing from 02/11/2024 in [facility] Smoking status 0 filed at 02/11/2024 1506 [...] Flowsheet Row Pre-Admission Testing from 03/26/2024 in [facility] Pre-Admission Testing from 02/11/2024 in [facility] Do you snore loudly? 0 filed at [...] Yellow, Dark-Yellow Appearance, Urine Clear Clear Specific [place], Urine 1.007 1.005 - 1.035 pH, Urine [...] 406 ms QTC Calculation(Bazett) 415 ms P Rio 58 degrees R Rio -3 degrees T Rio 18 degrees QRS Count 10 beats Q [...] given to patient. Neurosurgery: Doretha Harris MD [facility] 01/03/24 seen for cervical radiculopathy. Neurosurgery: Jose Cruz Khan MD [facility] 11/05/23- [facility] seen for cervical stenosis of spine. Oncology: Helder Jack MD [facility] 12/13/23 seen for incidental pontine lesion- appears to be low-grade. HEENT/Airway The patient has history of selective right neck dissection (II-V) and bilateral base of tongue/linguial tonsillar excision on 01/30/[address] 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 Currently with limited neck extension. No documented or reported history of airway difficulty. HemOnc: Racquel Cole MD [facility] 11/02/23-[facility] seen for head and neck cancer. [...] Cardiology Evaluation Cardiology: Lilliam Cason MD - [facility] (see media tab for last office note) [...] understanding ofpreoperative instructions. After Visit Summary given. [facility] Work Phone: 1(446) 243-161310-23-2024 History and physical note* Rojas Edwards MD [...] thin liquids Hypertension NPH (normal pressure hydrocephalus) ([facility]) PAD (peripheral artery disease) ([facility]) s/p stent (05/2023) on ASA 81mg Peripheral vascular disease ([facility]) Pontine lesion watchful waiting Pulmonary nodule Skin [...] as directed daily preoperatively 02/11/24 Rick Mckinney APRN-DAIRY AND FOOD LABORATORY ASSISTANT chlorhexidine (Peridex) 0.12 % solution Swish and spit with 15ml of solution the night before and morning of surgery. Do not swallow. 02/11/24 Rick Mckinney, FIRE [employer]SHAL REFINERY-DAIRY AND FOOD LABORATORY ASSISTANT citalopram (CeleXA) 20 mg tablet Take 0.5 tablets (10 mg) by mouth once daily. Historical Provider, clopidogrel (Plavix) 75 mg tablet Take by mouth once daily. Historical Provider, lisinopril 5 mg tablet Take 2 tablets (10 mg) by mouth once daily. Historical Provider, tiZANidine (Zanaflex) 4 mg capsule Take 1 capsule (4 mg) by mouth once daily at bedtime. HistoricalProvider, PAT ROS: Constitutional: neg Neuro/Psych: LUE weakness [...] Flowsheet Row Pre-Admission Testing from 02/11/2024 in [facility] Questionnaire Series Submission from 02/06/2024 in Virtual Care with Generic Provider Laura Can you [...] 5.5 filed at 02/11/20241417 5.5 filed at 02/06/202431 Can you run a short distance? 0 filed at 02/11/20248 8 filed at 02/06/202431 Can you do light work around the house like dusting or washing dishes? 2.7 filed at 02/11/2024 25233.7 filed at 02/06/2024 003 Can you do [...] Flowsheet Row Pre-Admission Testing from 02/11/2024 in [facility] DVT Score 11 filed at 02/11/2024 1506 BMI 30 or less filed at 02/11/2024 1506 RETIRED: Current Status Major surgery planned, lasting over 3 hours filed at 02/11/2024 1506 RETIRED: History Prior major surgery, Previous malignancy filed at 02/11/2024 1506 RETIRED: Age 60-75 years filed at 02/11/2024 1506 Modified Frailty Index Flowsheet Row Pre-Admission Testing from 02/11/2024 in [facility] Non-independent functional status (problems with dressing, bathing, [...] Flowsheet Row Pre-Admission Testing from 02/11/2024 in [facility] High-Risk Surgery (Intraperitoneal, Intrathoracic,Suprainguinal vascular) 0 filed [...] Flowsheet Row Pre-Admission Testing from 02/11/2024 in [facility] Smoking status 0 filed at 02/11/2024 1506 [...] Flowsheet Row Pre-Admission Testing from 03/26/2024 in [facility] Pre-Admission Testing from 02/11/2024 in [facility] Do you snore loudly? 0 filed at [...] Yellow, Dark-Yellow Appearance, Urine Clear Clear Specific [place], Urine 1.007 1.005 - 1.035 pH, Urine [...] 406 ms QTC Calculation(Bazett) 415 ms P Rio 58 degrees R Rio -3 degrees T Rio 18 degrees QRS Count 10 beats Q [...] given to patient. Neurosurgery: Doretha Harris MD [facility] 01/03/24 seen for cervical radiculopathy. Neurosurgery: Jose Cruz Khan MD [facility] 11/05/23- [facility] seen for cervical stenosis of spine. Oncology: Helder Jack MD [facility] 12/13/23 seen for incidental pontine lesion- appears to be low-grade. HEENT/Airway The patient has history of selective right neck dissection (II-V) and bilateral base of tongue/linguial tonsillar excision on 01/30/[address] 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 Currently with limited neck extension. No documented or reported history of airway difficulty. HemOnc: Racquel Cole MD [facility] 11/02/23-[facility] seen for head and neck cancer. [...] Cardiology Evaluation Cardiology: Lilliam Cason MD - [facility] (see media tab for last office note) [...] After Visit Summary given. documented [facility] Work Phone: 1(153) 953-843410-15-2024 Evaluation note* Author [facility] Authored April 01, 2024 1 0:01am The above note written by Leon Humphreys LPN, acting as human recorder, note dictated by Dr. Griselda Hastings. [facility] Work Phone: 1(784) 469-142208-15-2024 Evaluation note* Author [facility] Authored January 31, 2024 10 :40am The above note written by Leon Humphreys LPN, acting as human recorder, note dictated by Dr. Griselda Hastings. Author [facility] Authored April 01, 2024 1 1:01am The above note written by Leon Humphreys LPN, acting as human recorder, note dictated by Dr. Griselda Hastings. [facility] Work Phone: 1(428) 753-153807-18-2024 History of Present illness Narrative* Doretha Harris [...] bone stimulator after surgery. Doretha Harris MD Loss Prevention/Safety District Manager of Neurosurgery [facility] [facility] Neuroscience ICU Office: [phone] Scribe Attestation By signing my name below, IParisa , Erlinda attest that this documentation has been prepared under the direction and in the presence of MD Shirley. documented in this [facility] Work Phone: 1(961) 319-971806-27-2024 History of Present illness Narrative* Helder Jack MD - 12/13/2023 10:00 AM EDT Patient ID: Shantel Melendez is a 63 y.o. male. Referring Physician: Shimon Heaton, BILLY [id number] [address] [place] [id number] Primary Care Provider: Griselda Hastings DO Subjective History of Present Ilness: 62 y.o. presents in neurosurgical consultation from [facility] for cervical stenosis.C/o neck pain and LUE pain, numbness and weakness down to hand for 2 years. SawNeurosurgeon at and has had 2 spinal taps with some improvement. Went to [facility] to be assessed for hydrocephal;us and was told he does not have hydrocephalus. He saw Dr. Lara at the [facility]. Also pain behind left eye. No [...] issues. 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 INTERVAL HISTORY (12/13/2023): Since the last visit, he continues to have severe neck pain, which isslowly getting worse, along with some muffled hearing on the left side. He tried going back to parttime work, but the activity made the neck pain much more severe. 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 He has now been to see a Neurosurgery PA (Solomon Narayanan) at [facility] about the neck, who thought surgical decompression [...] per documentation in the HPI. Objective BSA: There is no height or [...] Nate Benavidez 12/13/2023 9:38 AM Dictation workstation: [id number] Impression 1. Abnormal increased T2 signal in [...] will undergo a new MRI brain at [facility]. -I spent > 40 minutes in face to face consultation to review and discuss the above; 50% of whichor more was dedicated to counseling. Helder Jack MD documented in this encounterUnSum[facility] Work Phone: 1(989) 136-917106-27-2024 Instructions* Patient Instructions* Alondra Escamilla RN - 12/13/2023 10:00 AM EDT Your next appointment will be in 5 months. Please schedule your MRI prior to this visit. Please contact [phone] option 5 then option 2 with any questions or concerns. For any scheduling concerns please call [phone] option 1 [facility] Work Phone: 1(689) 200-367006-26-2024 History of Present illness Narrative* oSlomon Narayanan PA-C - 12/12/2023 1:00 PM EDT Images from the original note were not included. 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 Sincerely, RICH Hernandez PA-C Associate Physician General Road Supervisor, Neurosurgery Clinical Loss Prevention/Safety District Manager [facility] [employer] [facility] [place] [address] [place] [address] documented in this encounterOhio [facility] Work Phone: 1([phone]) 359-619205-17-2024 Instructions* Patient Instructions* Racquel Cole MD - 11/02/2023 10:13 AM EDT Scans and labs in 1 year RTC 1 week after documented in this encounterCleveland [facility]05-17-2024 History of Present illness Narrative* Racquel Cole MD - 11/02/2023 9:45 AM EDT Images from the original note were not included. NAME: MelendezShantel [facility] NO.: [id number] DATE OF SERVICE: November 02, 2023 ([facility]) Some elements in this clinic note that are critical to medical decision making have been carefully reviewed and included from a prior clinic note dated: November 03, 2022 (Curtis). Referring Provider: Griselda Hastings, DO Additional Clinicians involved in Shantel Melendez's care: Dr Kimberly Nichole ENT, Dr. 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 10/05/2021 - [place] Brain: [facility] There is T2 and T2 flair hyperintense [...] respiratory bronchiolitis. 01/30/2019 - Neck dissection at [facility] Base of tongue did note [...] 2020: Doing well, still smokes, works at [email or web address]. Reviewed scans and there is no evidence [...] which included preparing to see the patient, pvtq-hg-kcec patient care, completing clinical documentation, performing a medically appropriate examination, counseling and educating the patient/family/caregiver, ordering medications, tests, or p rocedures, independently interpreting results (not separately reported), communicating results to the patient/family/caregiver, and care coordination (not separately reported). Racquel Cole MD, CPE Hematology and Oncology Services Provided at: [place], [place] Scribe Attestation: This note was scribed [...] under my direction. CC: Griselda Hastings, DO [address] [place] [id number] [address] NEWMAN ENT[address] Dr. Nichole ENT Dr. Ibarra MA surgery [facility]. documented in this encounterCleveland Clinic [facility] Hospital05-13-2024 Evaluation note* Author Shilpi Lantigua [facility] Authored October 29, 2023 10:32 am Sooner if needed, the ER if concerns,The above note written by Shilpi Lantigua LPN acting as human recorder, note dictated by Dr. Griselda Hastings [facility] Work Phone: 1(752) 434-773105-10-2024 History of Present illness Narrative* Curtis Da [...] PATIENT PRESENTS WITH AN IMPLANTABLE OR ATTACHED VAULT CUSTODIAN: No RADIOLOGY DEPARTMENT: CT; Exam(s) Completed: Chest and Neck PERIPHERAL IV DATA: Site assessment: Clean,Dry and Intact, Site disposition Discontinued SIGNED BY: RT Craig(R) October 26, 2023 10:07 AM documented in this encounterCleveland Clinic [facility]on Hospital04-19-2024 History of Present illness Narrative* Helder [...] hydrocephalus. He saw Dr. Lara at the [facility]. Also pain behind left eye. No [...] issues. 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 The ROS is as per documentation in the [facility]. Objective BSA: 1.93 meters squared Ht [...] counseling. Helder Jack MD documented in this [facility] Work Phone: 1(867) 346-126704-19-2024 Instructions* Patient Instructions* Adriana Thomas RN - 10/05/2023 9:[address] Jack will present your case at Tumor Board next Sunday. Someone from the office will call you that day or about your plan. Please call us with any questions or concerns at [phone] opt. 5, opt. 2 For scheduling concerns please call [phone] option 1 documented in this encounterOhio [facility] Work Phone: 1(694) 975-805502-28-2024 Evaluation note* Author Curtis Olmosolson [facility] Authored August 15, 2023 5:19pm The above note written by Serafin Flood acting as human recorder, note dictated by Dr. Griselda Hastings . [facility] Work Phone: 1(346) 163-372102-28-2024 Evaluation note* Author [facility] Authored August 15, 2023 5:19pm The above note written by Serafin Flood acting as human recorder, note dictated by Dr. Griselda Hastings . Author Shilpi Lantigua [facility] Authored October 29, 2023 10:32 am Sooner if needed, the ER if concerns,The above note written by Shilpi Lantigua LPN acting as human recorder, note dictated by Dr. Griselda Hastings [facility] Work Phone: [phone]) 841-432701-15-2024 Evaluation note* Encounter Date Diagnosis Assessment Notes Treatment Notes Treatment Clinical Notes Jun, Acute cough (ICD-10 - R05.1) [place], flu, strep and rsv test was [...] continue to follow with them as scheduled. [facility] Other 12-14-2023 Evaluation note* Encounter Date Diagnosis Assessment Notes Treatment Notes Treatment Clinical Notes May, PAD (peripheral artery disease) (ICD-10 - I73.9) Patient recently had angioplasty for occlusion of right iliac artery that was discovered by bacteriology professor. He has been doing well since the [...] work before I provide him that consent. [facility] Other 12-13-2023 Evaluation note* Encounter Date Diagnosis [...] I will see him in 3 months. [facility] Other 11-28-2023 Evaluation note* Encounter Date Diagnosis [...] 3 months Apr, Lightheadedness (ICD-10 - R42) [facility] Other 11-20-2023 [facility] Evaluation [facility]* Encounter Date Diagnosis Assessment [...] questions were addressed and consent was obtained. [facility] Other 11-14-2023 Evaluation note* Encounter Date Diagnosis [...] M54.2) The patient is now following with [facility]. He states he has an upcoming cervical epidural scheduled. 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 Apr, PAD (peripheral artery disease) (ICD-10 - I73.9) Arterial studies ordered by bacteriology professor indicating peripheral artery disease. The patient does report lower extremity pain and heaviness and I recommend it would be beneficial to consult with a vascular specialist. The patient is in agreement, therefore a referral was initiated. A CTA has been ordered by neurologist , appointment pending [facility] scheduling. Apr, Hyperlipidemia (ICD-10 - E78.5) Blood [...] vocies understanding. We will continue to monitor. [facility] Other 10-26-2023 Evaluation note* Encounter Date Diagnosis Assessment Notes Treatment Notes Treatment Clinical Notes Mar, Claudication (ICD-10 - I73.9) [facility] Other 10-25-2023 Evaluation note* Encounter Date Diagnosis [...] 4 weeks Mar, Lightheadedness (ICD-10 - R42) [facility] 10-24-2023 Evaluation note* Encounter Date Diagnosis Assessment Notes Treatment Notes Treatment Clinical Notes Mar, Elevated blood pressure reading (ICD-10 - R03.0) [facility] Other 09-28-2023 Evaluation note* Encounter Date Diagnosis [...] infection. Feb, Burning sensation (ICD-10 - R20.8) [facility] Other 09-21-2023 Evaluation note* Encounter Date Diagnosis [...] index finger. We will continue to monitor. [facility] Other 07-13-2023 Hospital Discharge instructions Diet Plan/Instructions [...] * Discharge Physician: : Lima Joseph MD ([id number]) - Anesthesiology, Pain Management * Discharge Physician Phone: : [phone] [id number] [id number] Special Plan/Instructions for Discharge from 12/27/2022 10:26 AM: * Special Instructions : Spoke to patient Wound Care Instruction for Discharge from 12/27/2022 10:26 AM: * Special Instructions : Spoke to patient [facility] 06-20-2023 Evaluation note* Encounter Date Diagnosis Assessment [...] sent to the office to be completed. [facility] Other 05-12-2023 History of Present illness Narrative* [...] with PATIENT DISCHARGED TO: Ambulatory patient, left OR department area. A Diagnostic radioactive procedure has taken place, with no further precautions necessary other than routine body substance precautions. More information regarding radiation safety can be found usingthis link: [email or web address] SIGNATURE: RT Craig(Neisha) PATIENT NAME: Shantel Melendez DATE: October 27, 2022 TIME: 11:55 AM PAGER/CONTACT #: documented in this encounterCleveland Clinic [facility]on Hospital04-07-2023 History of Present illness Narrative* RT [...] 2022 TIME: 2:39 PM documented in this encounterCleveland Clinic [facility]on Hospital04-05-2023 Miscellaneous Notes* Telephone Encounter - Akash [...] return call ? Yes documented in this encounterCleveland Clinic Avon Hospital03-29-2023 Instructions* Patient Instructions* Kelly Perez PA-C [...] perform on same dariusz. documented in this encounterCleveland Clinic Avon Hospital03-29-2023 Nurse Note* Antonia Tripathi MA - 09/13/2022 10:55 AM EDT Additional intake questions: Has the patient had fever, nausea, vomiting, diarrhea, constipation, fatigue for > 1 week? Yes, diarrhea ( 3 times in last 24 hours), fatigue, and Provider Notified Does the patient have a decreased appetite? No Does patient want to see a Health Insurance Agent? No (yes to any of above refer [...] By: Antonia Tripathi MA documented in this encounterCleveland Clinic Avon Hospital03-29-2023 History of Present illness Narrative* Kelly Perez PA-C - 09/13/2022 10:44 AM EDT This note was created using ServiceFrameriter. Subjective Shantel Melendez is a 61 year [...] or pronator drift. Coordination: Romberg sign negative. Ofgway-Ssvo-Oquwuf Test normal. Gait: Gait abnormal. Comments: Slightly [...] video tape. Pt will f/u with Dr. Vorster for consideration of surgical intervention after LP completed. I spent a total of 50 minutes on the date of the service which included preparing to see the patient, lvtn-so-lhlg patient care, completing clinical documentation, obtaining and/or reviewing separately obtained history, performing a medically appropriate examination, counseling and educating the pat ient/family/caregiver, ordering medications, tests, or procedures, communicating with other HCPs (not separately reported), independently interpreting results (not separately reported), communicatingresults to the patient/family/caregiver, and care coordination (not separately reported). documented in this encounterCleveland Clinic Avon Hospital03-16-2023 Evaluation note* Encounter Date Diagnosis Assessment [...] her mid twenties. He will see the SENIOR SALES OPERATIONS MANAGER at Dr. Cadena's office today, and will see the [facility] 09/13/22. I do feel pt needs his FMLA extended until 12/16/22. I encouraged him to continue to follow with these doctors, and we will continue to monitor. [facility] Other 02-14-2023 Evaluation note* Encounter Date Diagnosis [...] pain medication and fever reducers as needed. [facility] Other 01-11-2023 Evaluation note* Encounter Date Diagnosis Assessment Notes Treatment Notes Treatment Clinical Notes Jun, Other complicated headache syndrome (ICD-10 - G44.59) [facility] Other 12-09-2022 Evaluation note* Encounter Date Diagnosis [...] check on him again in 1 month. [facility] Other 10-30-2022 Hospital Discharge instructions Additional Instructions [...] week to see how you are doing. [place] Work Phone: 1(242) 360-453110-10-2022 Miscellaneous Notes* Telephone Encounter - Racquel Cole MD - 03/27/2022 3:54 PM EDT Good with me * Telephone Encounter - Asya Reynolds RN - 03/27/2022 2:17 PM EDT Informed patient of your recommendations. He states that he is seeing neurology in [place] and they do not feel he needs [...] the weekend about an appointment with a [facility] neurosurgeon. He has not seen you since 10/2021. He states st that time you did not see the need for a neurosurgeon as his tumor wastoo small. Now he all of the sudden has an appointment with this [facility] neurosurgeon and is confused. Can you review and advise as to this appointment with the neurosurgeon. Asya Reynolds RN documented in this encounterCleveland Clinic Avon Hospital09-29-2022 Miscellaneous Notes* Telephone Encounter - Pamela Nascimento APRN.LUCIO - 03/16/2022 2:51 PM EDT Time Frame: Next available Provider: Intra-axial neurosurgeon & Neuro-Oncology (same day) Referring: Racquel Cole MD Please instruct patient to hand carry/ upload images prior to appt Dx: Low grade glioma Patient: Shantel Melendez Address: Shantel Melendez [id number] [place] [address] Per Triage: Shantel Melendez is a 61 year old male that requests evaluation of previously diagnosed possible low grade glioma. Patient expectations: Second opinion Tumor Specifics: Location: brain Previous Evaluations: MRI w/wo contrast (10/05/21): 10/05/2021 MRI Brain [facility] Impression: 1. There is T2 and T2 [...] Dumont - 03/16/2022 12:26 PM EDT MD Racquel Gomez MD Future Order Information Expires 10/13/22 Associated Diagnoses Glioma of brain (HCC) [C71.9] Reason for Exam Priority: Routine Dx: Glioma of brain (HCC) [C71.9 (ICD-10-CM)] Order Questions Question Answer [facility] access? Yes documented in this encounterCleveland Clinic [facility]on Hospital09-29-2022 Evaluation note* Encounter Date Diagnosis Assessment [...] see if this gives him some relief [facility] Other 08-15-2022 Evaluation note* Encounter Date Diagnosis [...] - G93.9) Patient had another MRI at [facility]. We are awaiting for the [...] again next week. We are awaiting for [facility] to fax over the consult and MRI results. Jan, Neck pain (ICD-10 - M54.2) The patients neck pain is persistant but the headache has improved with a medication change. Discussed with Dr. Cadena his persistent neck pain, may need MRI of his neck and/or EMG. Due to his multiple other medications did hold off on any pain medications. [facility] Other 07-11-2022 Evaluation note* Encounter Date Diagnosis [...] blood pressure was elevated upon check in. [facility] Other 06-20-2022 Evaluation note* Encounter Date Diagnosis [...] rule out other causes of his symptoms. [facility] Other 05-24-2022 Evaluation note* Encounter Date Diagnosis [...] will complete the necessary medical disability forms. [facility] Other 05-17-2022 Evaluation note* Encounter Date Diagnosis Assessment Notes Treatment Notes Treatment Clinical Notes October, Glioma of brain (ICD-10 - C71.9) Patient has consulted neurosurgeon, Dr. Narayan, and he is now referring on to Dr. [facility]ig[facility] for 2[facility]. Reviewed consult note [...] this medication. Will continue to follow up [facility] Other 05-12-2022 History of Present illness Narrative* Racquel Cole MD - 10/27/2021 5:05 PM EDT Images from the original note were not included. NAME: Shantel Melendez CLINIC NO.: [id number] DATE OF SERVICE: October 27, 2021 Some elements in this clinic note that are critical to medical decision making have been carefully reviewed and included from a prior clinic note dated: October 13, 2021 Referring Provider: Griselda Hastings, DO Additional Clinicians involved in Shantel Melendez's care: Dr Kimberly Nichole ENT, Dr. Ibarra MA surgery [facility] AMBULATORY TELEPHONE VISIT Shantel Melendez has consented [...] 1.8 mm of invasive disease (Stage I, [id number], HPV+ oropharyngeal SCC).resected T1 N1 base of [...] 01/30/19 He had a neck dissection at [facility] HPI: Updated Visit, October 27, [...] COMP METABOLIC PANEL Racquel Cole MD, CPE [facility] Cancer [place], [place] CC: Griselda Hastings, DO [address] [phone] [address] Kimber[address] EL[address]ABETHS ENT[address] Dr. Nichole ENT Dr. Ibarra MA surgery [facility]. documented in this encounterCleveland Clinic [facility] Hospital05-09-2022 Evaluation note* Encounter Date Diagnosis Assessment [...] see Dr. Jonny Vigil. [facility] Other 05-04-2022 Miscellaneous Notes* Telephone Encounter - Haily Jovel [facility] - 10/19/2021 12:56 PM EDT Called [facility] Neuro Office spoke with Leslee. She states they have received patient records/referral and have patient scheduled to see Dr Narayan on 10/24. Haily Jovel [facility] * Telephone Encounter - Asya Gramajo [facility] - 10/18/2021 10:34 AM EDT Records faxed. * Telephone Encounter - Haily Jovel [facility] - 10/13/2021 12:24 PM EDT Noelle: Information ready for you. Haily Jovel Pss * Telephone Encounter - Antonia Mcguire - 10/13/2021 10:33 AM EDT Referral to neurosurgery - Dr. Narayan or Talya Drake/Layo: Can you please refer patient and follow up? Thanks! Antonia Mcguire documented in this encounterCleveland Clinic [facility]on Hospital04-28-2022 History of Present illness Narrative* Racquel Cole MD - 10/13/2021 10:19 AM EDT Images from the original note were not included. NAME: Shantel Melendez [facility] NO.: [id number] DATE OF SERVICE: October 13, 2021 Some elements in this clinic note that are critical to medical decision making have been carefully reviewed and included from a prior clinic note dated:October 14, 2020 Referring Provider: Griselda Hastings, DO Additional Clinicians involved in Shantel Melendez's care: Dr Kimberly Nichole ENT, Dr. Ibarra MA surgery [facility] CC: Head and neck [...] 1.8 mm of invasive disease (Stage I, [id number], HPV+ oropharyngeal SCC).resected T1 N1 base of [...] 01/30/19 He had a neck dissection at [facility] HPI: Updated Visit, October 13, [...] 2020: Doing well, still smokes, works at [email or web address]. Reviewed scans and there is no evidence [...] adenopathy is identified. 4. 10/05/2021 MRI Brain [facility] Impression: 1. There is T2 and T2 [...] and neck (HCC) Racquel Cole MD, CPE [place], [place] CC: Griselda Hastings, DO [address] [phone] [address] Kimberly ELIZABETHS ENT[address] Dr. Nichole ENT Dr. Ibarra MA surgery [facility]. documented in this encounterCleveland Clinic [facility]on Hospital04-21-2022 Miscellaneous Notes* Telephone Encounter - Racquel [...] steps. Asya Kumar RN documented in this encounterCleveland Clinic Avon Hospital04-21-2022 History of Present illness Narrative* Marilyn [...] 06, 2021 8:07 AM documented in this encounterLaura [place] [address]-04-2022 Evaluation note* Encounter Date Diagnosis Assessment Notes [...] to continue with monitoring diet and exercise. [facility] Other 03-28-2022 Evaluation note* Encounter Date Diagnosis Assessment Notes Treatment Notes Treatment Clinical Notes Aug, Anxiety and depression (ICD-10 - F41.8) [facility] Other 01-13-2022 Evaluation note* Encounter Date Diagnosis Assessment Notes Treatment Notes Treatment Clinical Notes Jun, Sinusitis (ICD-10 - J32.9) I did prescribe the above medications and work note provided. [facility] Other 01-12-2022 Evaluation note* Encounter Date Diagnosis Assessment Notes Treatment Notes Treatment Clinical Notes Jun, Sinus pressure (ICD-10 - J34.89) Patient advised of negative results. Encouraged him to call if symtpoms persist or worsen, he verbalized understanding. [facility] Other 11-02-2021 Evaluation note* Encounter Date Diagnosis Assessment Notes Treatment Notes Treatment Clinical Notes Apr, Sinus congestion (ICD-10 - R09.81) [facility] Other 10-28-2021 Evaluation note* Encounter Date Diagnosis [...] Encouraged patient to continue with their efforts. [facility] Other 12-01-2016 History general Narrative - Reported* [...] surgery 02/04 19 Hospitalization History see above [facility] Other 12-01-2016 History general Narrative - Reported* [...] 02/04 19 Surgical History [facility] 11/07/2021 Hospitalization History see above [facility] 12-01-2016 History general Narrative - Reported* [...] 02/04 19 Surgical History Spinal tap at [facility] 11/07/2021 Hospitalization History see above [facility] 12-01-2016 History general Narrative - Reported* [...] dissection 01/2019 Surgical History Spinal tap at [facility] 11/07/2021 Hospitalization History see above [facility] 12-01-2016 History general Narrative - Reported* [...] dissection 01/2019 Surgical History [facility] 11/07/2021 Surgical History LP at [facility] 08/2022 Hospitalization History see above [facility] Other 12-01-2016 History general Narrative - Reported* [...] dissection 01/2019 Surgical History Spinal tap at [facility] 11/07/2021 Surgical History LP at [facility] 08/2022 Hospitalization History see above [facility] Other 12-01-2016 History general Narrative - Reported* [...] dissection 01/2019 Surgical History Spinal tap at [facility] 11/07/2021 Surgical History LP at [facility] 08/2022 Surgical History angioplasty right iliac artery 04/2023 Hospitalization History see above [facility] Other [id number] History of Present illness Narrative* The patient [...] He saw Dr. Ba a neurologist in [facility]. * He describes his vision as seeing 1-1/2 . He describes this does not seem quite to but finding a time lab between moving his eyes and having the visual change. [facility] Work Phone: chief complaint+Reason for visit Narrative* Chief Complaint 2 month 2 month f/u Reason for Visit Cervical spondylosis History of COVID-19 Nicotine dependence with current use SCC (squamous cell carcinoma) Nicotine dependence with current use Osteoarthritis cervical spine [facility] Work Phone: Clinical Notes [facility] [place] + Plan note [facility] Evaluation noteNo Assessments Information Available 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 Malignant neoplasm of head, face, and neck Lung nodules Other nonspecific abnormal finding of lung field Malignant neoplasm of head, face and neck (HCC) Malignant neoplasm of head, face, and neck [facility] noteNo InformationNort tribr Other Evaluation noteNo assessment information available [place] Work Phone: Evaluation note* Diagnosis Onset Date Resolution Status Migraine acute [place] Work Phone: Evaluation note* Diagnosis NPH (normal pressure hydrocephalus) (HCC)- Primary Idiopathic normal pressure hydrocephalus (INPH) [facility] Diagnosis 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HCC)- Primary NPH (normal pressure hydrocephalus) (HCC) Idiopathic normal pressure hydrocephalus (INPH) documented in this encounter [facility] note* Diagnosis 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HCC) NPH (normal pressure hydrocephalus) (HCC) Idiopathic normal pressure hydrocephalus (INPH) documented in this encounter [facility] note* Diagnosis Onset Date Resolution Status Anxiety and depression acute Essential hypertension acute Hyperlipidemia acute Osteoarthritis cervical spine acute PAD (peripheral artery disease) acute [facility] Work Phone: Evaluation note* Diagnosis 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 Griselda Hastings. 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) Malignant neoplasm of head, face, and neck Localized swelling, mass or lump of neck Swelling, mass, or lump in head and neck [facility] Diagnosis Cervical radiculopathy- Primary Brachial neuritis or radiculitis nos Cervical radiculopathy Brachial neuritis or radiculitis nos Senile osteoporosis Senile osteoporosis documented in this encounter [facility] Work Phone: [phone] note* Diagnosis Cervical radiculopathy- Primary Brachial neuritis or radiculitis nos Status post cervical spinal fusion Arthrodesis status Acute postoperative pain Other acute postoperative pain Muscle spasms of neck documented in this encounter [facility] Work Phone: [phone] note* Diagnosis Other nerve root and plexus disorders- Primary Cervical paraspinal muscle spasm Spasm of muscle Cervical stenosis of spinal canal Spinal stenosis in cervical region [facility] Diagnosis Cervical radiculopathy- Primary Brachial neuritis or radiculitis nos Occipital neuralgia of left side Balance problem Abnormality of gait documented in this encounter [facility] Work Phone: [phone] note* 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 [facility] Work Phone: [phone] note* 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 [facility] Work Phone: [phone] note* Diagnosis Cervical radiculopathy- Primary Brachial neuritis or radiculitis nos Senile osteoporosis documented in this encounter [facility] Work Phone: [phone] note* Diagnosis Cervical radiculopathy Brachial neuritis or radiculitis nos Senile osteoporosis Cervical radiculopathy Brachial neuritis or radiculitis nos Senile osteoporosis Cervical radiculopathy Brachial neuritis or radiculitis nos Senile osteoporosis documented in this encounter [facility] Work Phone: Evaluation note* Diagnosis Cervical radiculopathy Brachial neuritis or radiculitis nos Senile osteoporosis Cervical radiculopathy Brachial neuritis or radiculitis nos Cervical radiculopathy Brachial neuritis or radiculitis nos Senile osteoporosis documented in this encounter [facility] Work Phone: Evaluation note* Diagnosis Cervical radiculopathy Brachial neuritis or radiculitis nos Senile osteoporosis Cervical radiculopathy Brachial neuritis or radiculitis nos Cervical radiculopathy Brachial neuritis or radiculitis nos Senile osteoporosis documented in this encounter [facility] Work Phone: Evaluation note* Diagnosis Status post cervical spinal fusion- Primary Arthrodesis status documented in this encounter [facility] Work Phone: Evaluation note* Diagnosis Nerve root and plexus disorder, unspecified- Primary [facility] Diagnosis Nerve root and plexus disorder, unspecified- Primary [facility] Diagnosis Nerve root and plexus disorder, unspecified- Primary [facility]* Diagnosis Status post cervical spinal fusion- Primary Arthrodesis status documented in this encounter [facility] Work Phone: Evaluation note* Diagnosis 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 Malignant neoplasm of head, face, and neck [facility] Diagnosis Primary squamous cell carcinoma [...] neoplasm of skin [facility]* Diagnosis Nerve root and plexus disorder, unspecified- Primary Acute pain of left shoulder documented in this encounter [facility]* Diagnosis Acute pain of right shoulder- Primary Nerve root and plexus disorder, unspecified Acute pain of left shoulder documented in this encounter [facility] HealthcareHospital Discharge instructions Additional Instructions Obtain Elsy pot and perform nasal irrigations twice a daySt[facility] Work Phone: Hospital Discharge instructions Additional Instructions Please return to emergency department for any new or worrisome symptoms including any chest pain, shortness of breath, vomiting, fever. Take all antibiotics even if you start feeling better.[facility] Work Phone: Hospital Discharge instructions Additional Instructions Push fluids Zofran for nausea vomiting Follow-up with the GI specialist as discussed for possible colonoscopy Return here if any problems persist or worsen If you are able to collect a urine specimen take it to the lab.[place] Work Phone: Reason for referral (narrative)* Diagnostic [...] SCAN OF CHEST CONTRAST Racquel Cole MD [address] [place] [address] [place] [address] Ct Imaging [facility] Referral ID Status Reason Start Date Expiration Date V isits Requested Visits Authorized [id number] Closed Auto-Generate d Referral 09/23/2021 11/22/2021 1 [...] CAT OF NECK TISSUE Racquel Cole MD [address] [place] [address] [place] [address] [place] [address] Referral ID Status Reason Start Date Expiration Date V isits Requested Visits Authorized [id number] Closed Auto-Generate d Referral 09/23/2021 11/22/2021 1 1 [facility]narrative)No reason for referral information [facility] Work Phone: Reason for visit Narrative* Auth/Cert [...] and Discectomy C5-6, C6-7 Doretha Harris MD [address] [facility], [facility] [address] [place] [address] Phone: tel: fax: [place] [address] [place] [address] fax: Referral ID Status Reason Start Date Expiration Date Visits Re quested Visits Authorized [id number] 1 1 [facility] Work Phone: Reason for visit Narrative* Injection (Routine) - Closed Specialty Diagnoses / Procedures Referred By Contac t Referred To Contact Neurology Diagnoses Acute pain of left shoulder Procedures VA OFFICE/OUTPATIENT NEW HIGH MDM 60 MINUTES Oziel Cadena MD [address] [facility] [address], [place] [address] Phone: tel: fax: Oziel Cadena MD [address] [place] [address] Phone: tel: fax: Referral ID Status Reason Start Date Expiration Date V isits Requested Visits Authorized [id number] Closed Perform Procedure 11/12/2024 05/18/2025 1 1 [...] Documents on File Type Date Recorded 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 Living Will 10/05/2023 9:39 AM Documents on File Type Date Recorded 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 Living Will 10/05/2023 9:39 AM [...] arrhythmia April 28, 2024 9:39am Essential hypertension November 11th, 20 24 9:39am Hyperlipidemia April 28, 2024 9:39am Glioma [...] (gastroesophageal reflux disease) J kurtis 2024 3:14pm Chief Complaint Admit Date B33.8 2024 2:12p m follow up Dyspepsia/GERD January 12, 2025 3:14pm medicare wellness February 19, 2025 10:28am Reason for Visit Admit Date Colon polyps [...] tember 2024 10:28am PAD (peripheral artery disease) [facility] [place] 10:28am Screening for prostate cancer February 19, 2025 10:28am Chief Complaint Admit Date follow up Dyspepsia/GERD January 12, 2025 3:14pm medicare wellness February 19, 2025 10:28am I73.9 February 26, 2025 1:18pm Reason for Visit Admit Date Colon polyps January 12, 2025 3:14 pm Dyspepsia January 12, 2025 3:14 pm GERD (gastroesophageal reflux disease) J [facility] 2024 3:14pm Anxiety and depression February 19 [...] for prostate cancer February 19, 2025 10:28am Assessments No Assessments Information Available Reason for Referral Specialty Diagnoses / Procedures Referred By Contac t Referred To Contact Neurosurgery Diagnoses Glioma of brain (HCC) Procedures CONSULT TO NEUROSURGERY OFFICE/OUTPATIENT [facility] 60-74 MINUTES Racquel Cole MD [address] [place] [address] [place] [address] Referral ID Status Reason Start Date Expiration Date Visits Requested Visits Authorized [id number] Authorized PCP Requested Referral 10/13/2021 10/13/2022 1 1 Specialty Diagnoses / Procedures Referred By Roverto t Referred To Contact CT IMAGING Diagnoses Lung nodules Procedures CT CHEST W IVCON DIAGNOSTIC COMPUTED TOMOGRAPHY THORAX W/CONTRAST Racquel Cole MD [address] [place] [address] [place] [address] Ct Imaging Referral ID Status Reason Start Date Expiration Date Visits Requested Visits Authorized [id number] Pending Review Auto-Generat ed Referral 10/30/2022 11/29/2022 1 1 Specialty Diagnoses / Procedures Referred By Roverto t Referred To Contact CT IMAGING Diagnoses Malignant neoplasm of head, face and neck (HCC) Procedures CT NECK SOFT TISSUE W IVCON CT SOFT TISSUE NECK W/CONTRAST MATERIAL Racquel Cole MD [address] [place] [address] [place] [address] Ct Imaging Referral ID Status Reason Start Date Expiration Date Visits Requested Visits Authorized [id number] Pending Review Auto-Generat ed Referral 10/30/2022 11/29/2022 1 1 Reason *FU 10/31 Evaluate and Treat Brainstem Lesion 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) Referral Organization [facility] urosurgery Referring Provider First Name Sheng Referring Provider Last Name Wyatt Referring Provider Specialty Neurosurger y Referred Organization [facility] Referred Provider Jonny Vigil Referred Address [address] [place] [address] [place], [place] Referred Provider Specialty Neurological Surgery Referral Priority Routine General Notes Fore, Linnea M 022 02:09:54 PM >Received and fax referral today Reason consult and treat (p t is willing to see him in [place], if not then will see at [facility]) 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) Diagnosis 2 Cervical pain (neck) (M54.2) Diagnosis 3 Pressure in head (R5 1.9) Referral Organization [facility] Medicin e Igo Referring Provider First Name Griselda Referring Provider Last Name Darling Referring Provider Specialty Family Prac henny Referred Organization [facility] Referred Provider Oziel Cadena Referred Address [address] [facility],[place], [place],[address] Referral Priority Routine Specialty Diagnoses / Procedures Referred By Roverto moraes Referred To Contact MR IMAGING Diagnoses 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HCC) Procedures MRI BRAIN WO/W IVCON MRI BRAIN BRAIN STEM W/O W/CONTRAST MATERIAL Kelly Perez, BILLY [address] [place] [address] Mr Imaging Referral ID Status Reason Start Date Expiration Date Visits Requested Visits Authorized [id number] Authorized Auto-Generat ed Referral 09/20/2022 10/20/2023 1 1 Referral ID Status Reason Start Date Expiration Date V isits Requested Visits Authorized [id number] Closed Auto-Generate d Referral 09/20/2022 10/20/2023 1 1 Reason pt requesting n ot Dr. Verma, but can see other providers from that group evaluate and treat tinnitus and balance issues Diagnosis 1 Tinnitus of both ear s (H93.13) Diagnosis 2 Balance disorder (R2 6.89) Referral Organization [facility] Cardiology Referring Provider First Name Lilliam Referring Provider Last Name Kamla Referring Provider Specialty Cardiovascu lar Disease Referred Organization [facility] Referred Provider Manuela Ballesteros Referred Address ,[place], [place],[address] Referred Provider Specialty Ear, Nose an d Throat Referral Priority Routine General Notes Yessica Brown 12:40:36 PM >received today, pt has medicaid insurance, will send to Dr. Ballesteros, attachments made, waiting for notes to be locked Reason consult and treat Diagnosis 1 PAD (peripheral arnie ry disease) (I73.9) Referral Organization [facility] Referring Provider First Name Griselda Referring Provider Last Name Darling Referring Provider Specialty Family Prac henny Referred Organization [facility] Vascular Surge ry Referred Provider Filipe Hess Referred Address [address] [facility] [address],[place], [place],[address] Referred Provider Specialty Vascular Abdirahman yvon Referral Priority Routine General Notes Linnea Alvarado 023 11:58:24 AM >Received today and sent P2P Specialty Diagnoses / Procedures Referred By Roverto moraes Referred To Contact CT IMAGING Diagnoses 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) Procedures CT CHEST W IVCON DIAGNOSTIC COMPUTED TOMOGRAPHY THORAX W/CONTRAST Racquel Cole MD [address] [facility] [place] [address] [place] [address] Referral ID Status Reason Start Date Expiration Date Visits Requested Visits Authorized [id number] Authorized Auto-Generat ed Referral 11/01/2024 12/01/2024 1 1 Specialty Diagnoses / Procedures Referred By Contac t Referred To Contact CT IMAGING Diagnoses 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) Procedures CT NECK SOFT TISSUE W IVCON CT SOFT TISSUE NECK W/CONTRAST MATERIAL Racquel Cole MD [address] [place] [address] [place] [address] Ct Imaging [facility] Referral ID Status Reason Start Date Expiration Date Visits Requested Visits Authorized [id number] Authorized Auto-Generat ed Referral 11/01/2024 12/01/2024 1 1 Referral ID Status Reason Start Date Expiration Date V isits Requested Visits Authorized [id number] Closed Auto-Generate d Referral 10/26/2023 06/17/2024 1 1 Referral ID Status Reason Start Date Expiration Date V isits Requested Visits Authorized [id number] Closed Auto-Generate d Referral 10/26/2023 06/17/2024 1 1 Specialty Diagnoses / Procedures Referred By Contac t Referred To Contact CT IMAGING Diagnoses Lung nodules Procedures CT CHEST W IVCON DIAGNOSTIC COMPUTED TOMOGRAPHY THORAX W/CONTRAST Racquel Cole MD [address] [place] [address] [place] [address] [place] [address] Referral ID Status Reason Start Date Expiration Date V isits Requested Visits Authorized [id number] Closed Auto-Generate d Referral 10/30/2022 11/29/2022 1 1 Specialty Diagnoses / Procedures Referred By Contac t Referred To Contact CT IMAGING Diagnoses Malignant neoplasm of head, face and neck (HCC) Procedures CT NECK SOFT TISSUE W IVCON CT SOFT TISSUE NECK W/CONTRAST MATERIAL Racquel Cole MD [address] [place] [address] Ct Imaging [facility] Referral ID Status Reason Start Date Expiration Date V isits Requested Visits Authorized [id number] Closed Auto-Generate d Referral 10/30/2022 11/29/2022 1 1 Specialty Diagnoses / Procedures Referred By Contac t Referred To Contact Radiology 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 [place] [address] [place] [address] Referral ID Status Reason Start Date Expiration Date Visits Requested Visits Authorized [id number] Pending Review Perform Procedure 12/13/2023 12/12/2024 1 1 Specialty Diagnoses / Procedures Referred By Contac t Referred To Contact Radiology 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 tumor perfusion protocol w and wo IV contrast Shimon Heaton, PA-C [address] [place] [address] Referral ID Status Reason Start Date Expiration Date Visits Requested Visits Authorized [id number] Authorized Perform Procedure 10/24/2023 10/23/2024 1 1 Specialty Diagnoses / Procedures Referred By Contac t Referred To Contact Radiology Diagnoses Cervical radiculopathy Procedures XR cervical spine complete 6+ views Doretha Harris MD [address] [facility], [address] [address] Referral ID Status Reason Start Date Expiration Date Visits Requested Visits Authorized [id number] Authorized Perform Procedure 01/03/2024 01/02/2025 1 1 Specialty Diagnoses / Procedures Referred By Contac t Referred To Contact Radiology Diagnoses Senile osteoporosis Procedures XR DEXA bone density axial skeleton w VFA Doretha Harris MD [address] [facility], [address] [address] Referral ID Status Reason Start Date Expiration Date Visits Requested Visits Authorized [id number] Pending Review Perform Procedure 01/03/2024 01/02/2025 1 1 Specialty Diagnoses / Procedures Referred By Contac t Referred To Contact Diagnoses Cervical radiculopathy Senile osteoporosis Procedures ECG 12 lead Doretha Harris MD [address] [facility], [address] [place] [address] Referral ID Status Reason Start Date Expiration Date V isits Requested Visits Authorized [id number] Authorized 01/09/2024 01/08/2025 1 1 Specialty Diagnoses / Procedures Referred By Contpalomo t Referred To Contact Radiology Diagnoses Cervical radiculopathy Procedures XR DEXA bone density Doretha Harris MD [address] [facility], [address] [place] [address] Referral ID Status Reason Start Date Expiration Date Visits Requested Visits Authorized [id number] Authorized Perform Procedure 01/08/2024 01/07/2025 1 1 [...] section and content) DATE CREATED AUTHOR 08/01/2019 [facility] DATE CREATED AUTHOR AUTHOR'S ORGANIZ ATION 11/05/2021 [employer] DATE CREATED AUTHOR AUTHOR'S ORGANIZ ATION 01/19/2022 [facility] dical Specialist DATE CREATED AUTHOR AUTHOR'S ORGANIZ ATION 10/02/2022 [facility] DATE CREATED AUTHOR AUTHOR'S ORGANIZ ATION 12/25/2022 [facility] DATE CREATED AUTHOR AUTHOR'S ORGANIZ ATION 08/03/2023 [facility] DATE CREATED AUTHOR AUTHOR'S ORGANIZ ATION 02/13/2024 [facility] DATE CREATED AUTHOR AUTHOR'S ORGANIZ ATION 10/27/2024 [facility] DATE CREATED AUTHOR AUTHOR'S ORGANIZ ATION 11/13/2024 [facility] DATE CREATED AUTHOR AUTHOR'S ORGANIZ ATION 01/01/2025 [facility] DATE CREATED AUTHOR AUTHOR'S ORGANIZ ATION 01/03/2025 [facility] DATE CREATED AUTHOR AUTHOR'S ORGANIZ ATION 02/06/2025 [facility] DATE CREATED AUTHOR AUTHOR'S ORGANIZ ATION 02/14/2025 [facility] DATE CREATED AUTHOR AUTHOR'S ORGANIZ ATION 02/17/2025 [facility] DATE CREATED AUTHOR AUTHOR'S ORGANIZ ATION 03/08/2025 [facility] ysician Group Source Comments (unrecognize d section and content) In the event this informatio n is protected by the Federal Confidentiality of Alcohol and Drug Abuse Patient Records regulations: The Federal rules restrict any use of the information to criminally investigate or prosecute any alcohol or drug abuse patient.[facility] the event this information is protected by the Federal Confidentiality of Alcohol and Drug Abuse Patient Records regulations: The Federal rules restrict any use of the information to criminally investigate or prosecute any alcohol or drug abuse patient.[facility] the event this information is protected by the Federal Confidentiality of Alcohol and Drug Abuse Patient Records regulations: The Federal rules restrict any use of the information to criminally investigate or prosecute any alcohol or drug abuse patient.[facility] the event this information is protected by the Federal Confidentiality of Alcohol and Drug Abuse Patient Records regulations: The Federal rules restrict any use of the information to criminally investigate or prosecute any alcohol or drug abuse patient.[facility] Hospital[facility] the event this information is protected by the Federal Confidentiality of Alcohol and Drug Abuse Patient Records regulations: The Federal rules restrict any use of the information to criminally investigate or prosecute any alcohol or drug abuse patient.[facility] HospitalIn the event this information is protected by the Federal Confidentiality of Alcohol and Drug Abuse Patient Records regulations: The Federal rules restrict any use of the information to criminally investigate or prosecute any alcohol or drug abuse patient.[facility] HospitalIn the event this information is protected by the Federal Confidentiality of Alcohol and Drug Abuse Patient Records regulations: The Federal rules restrict any use of the information to criminally investigate or prosecute any alcohol or drug abuse patient.[facility] HospitalIn the event this information is protected by the Federal Confidentiality of Alcohol and Drug Abuse Patient Records regulations: The Federal rules restrict any use of the information to criminally investigate or prosecute any alcohol or drug abuse patient.[facility] HospitalIn the event this information is protected by the Federal Confidentiality of Alcohol and Drug Abuse Patient Records regulations: The Federal rules restrict any use of the information to criminally investigate or prosecute any alcohol or drug abuse patient.[facility] HospitalIn the event this information is protected by the Federal Confidentiality of Alcohol and Drug Abuse Patient Records regulations: The Federal rules restrict any use of the information to criminally investigate or prosecute any alcohol or drug abuse patient.[facility] HospitalIn the event this information is protected by the Federal Confidentiality of Alcohol and Drug Abuse Patient Records regulations: The Federal rules restrict any use of the information to criminally investigate or prosecute any alcohol or drug abuse patient.[facility] HospitalIn the event this information is protected by the Federal Confidentiality of Alcohol and Drug Abuse Patient Records regulations: The Federal rules restrict any use of the information to criminally investigate or prosecute any alcohol or drug abuse patient.[facility] HospitalIn the event this information is protected by the Federal Confidentiality of Alcohol and Drug Abuse Patient Records regulations: The Federal rules restrict any use of the information to criminally investigate or prosecute any alcohol or drug abuse patient.[facility] HospitalIn the event this information is protected by the Federal Confidentiality of Alcohol and Drug Abuse Patient Records regulations: The Federal rules restrict any use of the information to criminally investigate or prosecute any alcohol or drug abuse patient.[facility] HospitalIn the event this information is protected by the Federal Confidentiality of Alcohol and Drug Abuse Patient Records regulations: The Federal rules restrict any use of the information to criminally investigate or prosecute any alcohol or drug abuse patient.[facility] Reason for Visit (unrecogniz ed section and content) Reason Comments Results Reason Comments Head and Neck Cancer Specialty Diagnoses / Procedures Referred By Contac t Referred To Contact Hematology/Oncology / HEMATOLOGY/ONCOLOGY Diagnoses Follow-up examination 1 year follow up LABS WITH CT Procedures EST PATIENT Racquel Cole MD [address] [place] [address] Racquel Cole MD [address] [place] [address] [place] [address] Referral ID Status Reason Start Date Expiration Date Visits Re quested Visits Authorized [id number] Closed 10/13/2021 06/17/2022 1 1 Reason Comments Referral Information Neurosurgery Reason Comments Established Patient Specialty Diagnoses / Procedures Referred By Contac t Referred To Contact Hematology/Oncology / HEMATOLOGY/ONCOLOGY Diagnoses 2 week phone follow up [phone] Procedures PHYS/QHP TELEPHONE EVALUATION 5-10 MIN PROVIDER SPECIALTY PHONE CALL Racquel Cole MD [address] [place] [address] [place] [address] Racquel Cole MD [address] [place] [address] [place] [address] Referral ID Status Reason Start Date Expiration Date Visits Re quested Visits Authorized [id number] Closed 10/27/2021 06/17/2022 1 1 Reason Comments Triage Internal Referral--o ld Reason Comments Appointment Reason Comments New Patient Specialty Diagnoses / Procedures Referred By Contac t Referred To Contact Neurology / BRAIN TUMOR Diagnoses Hydrocephalus (HCC) Hydrocephalus Procedures OFFICE/OUTPATIENT NEW MODERATE MDM 45-59 MINUTES NEW SURGICAL Oziel Cadena MD [address] [place] [address] Kelly Perez PA-C [address] [id number] Referral ID Status Reason Start Date Expiration Date Visits Re quested Visits Authorized [id number] Closed 09/13/2022 06/17/2023 1 1 Reason Comments Patient Question Reason Comments Radiology MRI Specialty Diagnoses / Procedures Referred By Contac t Referred To Contact MR IMAGING Diagnoses 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HCC) Procedures MRI BRAIN WO/W IVCON MRI BRAIN BRAIN STEM W/O W/CONTRAST MATERIAL Kelly Perez PA-C [address] [place] [address] Mr Imaging Referral ID Status Reason Start Date Expiration Date V isits Requested Visits Authorized [id number] Closed Auto-Generate d Referral 09/20/2022 10/20/2023 1 [...] NECK W/CONTRAST MATERIAL Racquel Cole MD [address] [place] [id number] Ct Imaging [id number] Referral ID Status Reason Start Date Expiration Date V isits Requested Visits Authorized [id number] Closed Auto-Generate d Referral 10/26/2023 06/17/2024 1 1 Specialty Diagnoses / Procedures Referred By Contac t Referred To Contact CT IMAGING Diagnoses Lung nodules Procedures CT CHEST W IVCON DIAGNOSTIC COMPUTED TOMOGRAPHY THORAX W/CONTRAST Racquel Cole MD [address] [address] Ct Imaging [id number] Referral ID Status Reason Start Date Expiration Date V isits Requested Visits Authorized [id number] Closed Auto-Generate d Referral 10/30/2022 11/29/2022 1 1 Specialty Diagnoses / Procedures Referred By Contac t Referred To Contact CT IMAGING Diagnoses Malignant neoplasm of head, face and neck (HCC) Lung nodules 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) Localized swelling, mass or lump of neck Procedures CT NECK SOFT TISSUE W IVCON CONTRAST CAT OF NECK TISSUE Racquel Cole MD [address] [place] [address] [place] [address] [place] [address] Referral ID Status Reason Start Date Expiration Date V isits Requested Visits Authorized [id number] Closed Auto-Generate d Referral 09/23/2021 11/22/2021 1 1 Reason Comments Neck Pain Tingling Numbness Specialty Diagnoses / Procedures Referred By Contac t Referred To Contact Radiology 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 tumor perfusion protocol w and wo IV contrast Shimon Heaton PA-C [address] [place] [id number] Referral ID Status Reason Start Date Expiration Date Visits Requested Visits Authorized [id number] Authorized Perform Procedure 10/24/2023 10/23/2024 1 1 Reason Comments Neck Pain Specialty Diagnoses / Procedures Referred By Contac t Referred To Contact Diagnoses Cervical radiculopathy Senile osteoporosis Procedures ECG 12 lead Doretha Harris MD [address] [facility], [address] [address] Referral ID Status Reason Start Date Expiration Date V isits Requested Visits Authorized [id number] Authorized 01/09/2024 01/08/2025 1 1 Specialty Diagnoses / Procedures Referred By Contac t Referred To Contact Radiology Diagnoses Cervical radiculopathy Procedures XR cervical spine complete 6+ views Doretha Harris MD [address] [facility], [address] [address] Referral ID Status Reason Start Date Expiration Date Visits Requested Visits Authorized [id number] Authorized Perform Procedure 01/03/2024 01/02/2025 1 1 Specialty Diagnoses / Procedures Referred By Contac t Referred To Contact Radiology Diagnoses Cervical radiculopathy Procedures XR DEXA bone density Doretha Harris MD [address] [facility], [address] [place] [address] Referral ID Status Reason Start Date Expiration Date Visits Requested Visits Authorized [id number] Authorized Perform Procedure 01/08/2024 01/07/2025 1 1 [...] COMPUTED TOMOGRAPHY THORAX W/CONTRAST Racquel Cole MD [address] [place] [address] [place] [address] Phone: tel: fax: [place] [address] Referral ID Status Reason Start Date Expiration Date V isits Requested Visits Authorized [id number] Closed Auto-Generate d Referral 11/01/2024 12/01/2024 1 1 Reason Comments Skin Check Care Teams (unrecognized sec tion and content) Upholsterer Helper Relationship Specialty Start Date End Date Griselda Hastings [address] [place], [place] [phone] PCP - General Family Practice 11/20/18 Griselda Hastings [address] [place] [phone] Referring Family Practice 11/20/18 Upholsterer Helper Relationship Specialty Start Date End Date Griselda Hastings [address] [place], [place] [phone] PCP - General Family Practice 11/20/18 Griselda Hastings [address] [place] [phone] Referring Family Practice 11/20/18 Upholsterer Helper Relationship Specialty Start Date End Date Griselda Hastings [address] [place], [place] [phone] PCP - General Family Practice 11/20/18 Griselda Hastings [address] [place] [address], [place] [address] Referring Family Practice 11/20/18 Upholsterer Helper Relationship Specialty Start Date End Date Griselda Hastings [address] [place] [address], [place] [address] PCP - General Family Practice 11/20/18 Griselda Hastings [address] [place] [address], [place] [address] Referring Family Practice 11/20/18 Upholsterer Helper Relationship Specialty Start Date End Date Griselda Hastings [address] [place] [address], [place] [address] PCP - General Family Medicine 11/20/18 Griselda Hastings [address] [place] [address], [place] [phone] Referring Family Medicine 11/20/18 Upholsterer Helper Relationship Specialty Start Date End Date Griselda Hastings [address] [place] [address], [place] [address] PCP - General Family Medicine 11/20/18 Griselda Hastings [address] [place] [address], [place] [address] Referring Family Medicine 11/20/18 Team Status: Inactive Member Role Status Dates Griselda Hastings , DO Primary Care Provider Active Daniel Gaytan APRN Emergency Provider Active Team Status: Active Member Role Status Dates Griselda Hastings , DO Primary Care Provider Active Oziel Cadena MD Attending Provider Active Team Status: Active Member Role Status Dates Griselda Hastings DO Primary Care Provider Active Team Status: Inactive Member Role Status Dates Griselda Hastings , DO Primary Care Provider Active Loi Wong Jr, MD Emergency Provider Active Team Status: Active Member Role Status Dates Griseldakeith Mendezroge , Primary Care Provider Active Nikole Mota APRN SENIOR SALES OPERATIONS MANAGER-C Attending Provider A ctive Team Status: Inactive Member Role Status Dates Griselda Hastings , Primary Care Provider Active Oziel Cadena MD Attending Provider Active Team Status: Inactive Member Role Status Dates Griselda Hastings , Primary Care Provider Active Nikole Mota APRN SENIOR SALES OPERATIONS MANAGER-C Attending Provider A ctive Upholsterer Helper Relationship Specialty Start Date End Date Griselda Hastings [address] [place] [address], [place] [address] PCP - General Family Medicine 11/20/18 Griselda Hastings [address] [place] [address], [place] [address] Referring Family Medicine 11/20/18 Oziel Cadena MD [address] [facility] [address] [place] [address] Referring Neurology 08/18/22 Upholsterer Helper Relationship Specialty Start Date End Date Griselda Hatsings [address] [place] [phone] PCP - General Family Medicine 11/20/[address] [place] [address] Referring Family Medicine 11/20/18 Oziel Cadena MD [address] [facility] [address] ROTHMAN [address] [place] [address] Referring Neurology 08/18/22 Upholsterer Helper Relationship Specialty Start Date End Date Griselda Hastings [address] [place] [phone] PCP - General Family Medicine 11/20/[address] [place] [address] Referring Family Medicine 11/20/18 Oziel Cadena MD [address] [facility] [address]OTH[address] [place] [address] Referring Neurology 08/18/22 Team Status: Inactive Member [...] Active Ruddy Harvey MD Attending Provider Active Upholsterer Helper Relationship Specialty Start Date End Date Griselda Hastings DO [address] [place] [phone] PCP - General Family Medicine 02/13/23 Upholsterer Helper Relationship Specialty Start Date End Date Griselda Hastings DO [address] [place] [phone] PCP - General Family Medicine 02/13/23 Team Status: Inactive Member Role Status Poornima Hastings DO Primary Care Provider Active Sta rt: May 04, 2023 End: May 04, 2023 Nikole Mota APRN SENIOR SALES OPERATIONS MANAGER-C Attending Provider Active Start: April End: [...] September 05, 2023 End: September 05, 2023 Upholsterer Helper Relationship Specialty Start Date End Date Griselda Hastings DO PCP - General 01/03/19 Upholsterer Helper Relationship Specialty Start Date End Date Griselda Hastings DO [address] [place] [address] 1 [place] [address] PCP - General 01/03/19 [place] [address] [place] [address] Consulting Physician Hematology and Oncology 10/05/23 Team [...] October 29, 2023 End: October 29, 2023 Upholsterer Helper Relationship Specialty Start Date End Date Griselda Hastings [address] [place] [phone] PCP - General Family Medicine 11/20/18 Griselda Hastings [address] [place] [phone] Referring Family Medicine 11/20/18 Oziel Cadnea MD 53[address] [facility] [address] [address] Referring Neurology 08/18/22 Team Status: Active Member Role Status Dates Lilliam Cason MD Ink Technician Active Griselda Hastings DO Primary Care Provider Active Team Status: Inactive Member Role Status Poornima Hastings DO Primary Care Provide r, Attending Provider Active Start: December 03, 2023 End: December 03, 2023 Team Status: Inactive Member Role Status Dates Griselda Hastings DO Primary Care Provide r, Attending Provider Active Start: January 31, 2024 End: January 31, 2024 Upholsterer Helper Relationship Specialty Start Date End Date Griselda Hastings [address] [place] [phone] PCP - General Family Medicine 11/20/18 Griselda Hastings [address] [place] [phone] Referring Family Medicine 11/20/18 Oziel Cadena MD [address] [facility] [address] [place] [address] Referring Neurology 08/18/22 Upholsterer Helper Relationship Specialty Start Date End Date Griselda Hastings [address] [place], [place] [phone] PCP - General Family Medicine 11/20/18 Griselda Hastings [address] [place], [place] [phone] Referring Family Medicine 11/20/18 Oziel Cadena MD [address] [facility] [address] [place] [address] Referring Neurology 08/18/22 Upholsterer Helper Relationship Specialty Start Date End Date Griselda Hastings [address] [place] [phone] PCP - General Family Medicine 11/20/18 Griselda Hastings [address] [place] [address] Referring Family Medicine 11/20/18 Upholsterer Helper Relationship Specialty Start Date End Date Griselda Hastings DO [address] [place] [address] PCP - General 01/03/19 [place] [address] [place] [address] Consulting Physician Hematology and Oncology 10/05/23 Solomon Narayanan PA-C [address] [facility], [address] Supervisor Neurosurgery 12/12/23 Team Status: Inactive Member Role Status Dates Griselda Hastings DO Primary Care Provide r, Attending Provider Active Start: April 01, 2024 End: April 01, 2024 Upholsterer Helper Relationship Specialty Start Date End Date Griselda Hastings DO [address] [place] [address] PCP - General 01/03/19 [place] [address] [place] [address] Consulting Physician Hematology and Oncology 10/05/23 Solomon Narayanan PA-C [address] [facility], [address] Supervisor Neurosurgery 12/12/23 Upholsterer Helper Relationship Specialty Start Date End Date Griselda Hastings DO [address] [place] [address] PCP - General 01/03/19 [place] [address] [place] [address] Consulting Physician Hematology and Oncology 10/05/23 Solomon Narayanan PA-C [address] [place] [address] Supervisor Neurosurgery 12/12/23 Team Status: Inactive Member Role Status Dates Griselda Hastings DO Primary Care Provider Active Sta rt: April 28, 2024 End: April 28, 2024 Lilliam Cason MD Attending Provider Active Sta rt: April 28, 2024 End: April 28, 2024 Upholsterer Helper Relationship Specialty Start Date End Date Griselda Hastings DO [address] [place] [phone] PCP - General Family Medicine 02/13/23 Upholsterer Helper Relationship Specialty Start Date End Date Griselda Hastings DO [address] [place] [phone] PCP - General Family Medicine 02/13/23 Upholsterer Helper Relationship Specialty Start Date End Date Griselda Hastings DO [address] [place] [address] PCP - General 01/03/19 [place] [address] [place] [address] Consulting Physician Hematology and Oncology 10/05/23 Solomon Narayanan PA-C [address] [facility], [address] Supervisor Neurosurgery 12/12/23 Upholsterer Helper Relationship Specialty Start Date End Date Griselda Hastings DO [address] [place] [address] PCP - General 01/03/19 [place] [address] [place] [address] Consulting Physician Hematology and Oncology 10/05/23 Solomon Narayanan PA-C [address] [facility], [address] [place] [address] Supervisor Neurosurgery 12/12/23 Upholsterer Helper Relationship Specialty Start Date End Date Griselda Hastings DO [address] [place] [address] PCP - General 01/03/19 [place] [address] [place] [address] Consulting Physician Hematology and Oncology 10/05/23 Solomon Narayanan PA-C [address] [facility], [address] [place] [address] Supervisor Neurosurgery 12/12/23 Upholsterer Helper Relationship Specialty Start Date End Date Griselda Hastings DO [address] [place] [address] PCP - General 01/03/19 [place] [address] [place] [address] Consulting Physician Hematology and Oncology 10/05/23 Solomon Narayanan PA-C [address] [facility], [address] Supervisor Neurosurgery 12/12/23 Upholsterer Helper Relationship Specialty Start Date End Date Griselda Hastings DO [address] [place] [address] PCP - General 01/03/19 [place] [address] [place] [address] Consulting Physician Hematology and Oncology 10/05/23 Solomon Narayanan PA-C [address] [facility], [address] Supervisor Neurosurgery 12/12/23 Upholsterer Helper Relationship Specialty Start Date End Date Griselda Hastings DO [address] [place] [address] PCP - General 01/03/19 [place] [address] [place] [address] Consulting Physician Hematology and Oncology 10/05/23 Solomon Narayanan PA-C [address] [facility], [address] Supervisor Neurosurgery 12/12/23 Team Status: Inactive Member Role Status Dates Griselda Hastings DO Primary Care Provider Active Sta rt: June 24, 2024 End: June 24, 2024 Solomon Narayanan PA-C Attending Provider Active St art: June 24, 2024 End: June 24, 2024 Upholsterer Helper Relationship Specialty Start Date End Date Griselda Hastings DO [address] [place], [place] [phone] PCP - General 01/03/19 [place] [address] [place] [address] Consulting Physician Hematology and Oncology 10/05/23 Solomon Narayanan PA-C [address] [place] [address] Supervisor Neurosurgery 12/12/23 Upholsterer Helper Relationship Specialty Start Date End Date Griselda Hastings DO [address] [place] [place] [address] PCP - General Family Medicine 02/13/23 Team Status: Inactive Member Role Status Dates Griselda Hastings DO Primary Care Provide r, Attending Provider Active Start: July 03, 2024 End: July 03, 2024 Upholsterer Helper Relationship Specialty Start Date End Date Griselda Hastings DO [address] [place] [place] [address] PCP - General Family Medicine 02/13/23 Upholsterer Helper Relationship Specialty Start Date End Date Griselda Hastings DO [address] [place] [address] PCP - General Family Medicine [...] September 11, 2024 End: September 11, 2024 Upholsterer Helper Relationship Specialty Start Date End Date Griselda Hastings DO [facility] [place] [address] PCP - General Family Medicine 02/13/23 Team [...] September 20, 2024 End: September 20, 2024 Upholsterer Helper Relationship Specialty Start Date End Date Griselda [...] October 10, 2024 End: October 10, 2024 Upholsterer Helper Relationship Specialty Start Date End Date Griselda Hastings DO [address] [place] [address] PCP - General 01/03/19 [place] [address] [place] [address] Consulting Physician Hematology and Oncology 10/05/23 Solomon Narayanan PA-C [address] [place] [address] Supervisor Neurosurgery 12/12/23 Upholsterer Helper Relationship Specialty Start Date End Date Griselda Hastings DO [address] [place], [place] [phone] PCP - General 01/03/19 [place] [address] [place] [address] Consulting Physician Hematology and Oncology 10/05/23 Solomon Narayanan PA-C [address] [place] [address] Supervisor Neurosurgery 12/12/23 Team Status: Inactive Member Role Status Dates Griselda Hastings DO Primary Care Provider Active Sta rt: October 27, 2024 End: October 27, 2024 Lilliam Cason MD Attending Provider Active Sta rt: October 27, 2024 End: October 27, 2024 Upholsterer Helper Relationship Specialty Start Date End Date Griselda Hastings [address] [place] [phone] PCP - General Family Medicine 11/20/18 Griselda Hastings [address] [place] [phone] Referring Family Medicine 11/20/18 Oziel Cadena MD [address] [facility] [address] [place] [phone] Referring Neurology 08/18/22 Upholsterer Helper Relationship Specialty Start Date End Date Griselda Hastings [address] [place] [phone] PCP - General Family Medicine 11/20/18 Griselda Hastings [address] [place] [phone] Referring Family Medicine 11/20/18 Oziel Cadena MD [address] [facility] [address] [place] [phone] Referring Neurology 08/18/22 Upholsterer Helper Relationship Specialty Start Date End Date Griselda [...] November 19, 2024 End: November 19, 2024 Upholsterer Helper Relationship Specialty Start Date End Date Griselda Hastings DO PCP - [facility] Medicine 02/13/23 Team Status: Inactive Member Role Status Dates Griselda Hastings DO Primary Care Provide r, Attending Provider Active Start: 2024 End: 2024 Upholsterer Helper Relationship Specialty Start Date End Date Griselda Hastings DO PCP - [facility] Medicine 02/13/23 Team Status: Active Member Role [...] Team Status: Inactive Member Role Status Dates Grieslda Hastings DO Primary Care Provider Active Sta rt: January 12, 2025 End: January 12, 2025 Solomon Montez APRN Attending Provider Active Start: January 12, 2025 End: January 12, 2025 Upholsterer Helper Relationship Specialty Start Date End Date Griselda Hastings DO PCP - [facility] 02/13/23 Upholsterer Helper Relationship Specialty Start Date End Date Griselda Hastings DO PCP - [facility] 02/13/23 Team Status: Active Member Role Status Dates Griselda Hastings DO Primary Care Provider Active Sta rt: January 27, 2025 Sarina Ramsey MD Attending Provider Active Start: January 27, 2025 Team Status: Active Member Role Status Dates Griselda Hastings DO Primary Care Provider Active Sta rt: February 18, 2025 Sofia Arias DO Attending Provider Active Start: February 18, 2025 Team Status: Inactive Member Role Status Dates Griselda Hastings DO Primary Care Provider Active Sta rt: February 19, 2025 End: February 19, 2025 Griselda Hastings DO Attending Provider Active Start: February 19, 2025 End: February 19, 2025 Upholsterer Helper Relationship Specialty Start Date End Date Griselda Hastings DO PCP - [facility] 02/13/23 Team Status: Inactive Member Role Status Dates Griselda Hastings DO Primary Care Provider Active Sta rt: February 26, 2025 End: February 26, 2025 Griselda Hastings DO Attending Provider Active Start: February 26, 2025 End: February 26, 2025 Goals (unrecognized section and content) Goals from [...] Phase II/On Unit 2022 (Given - Provider: Elizabeht Esposito RN) 2099 (Due) Continuous Medication Order 04/08/2024 04/09/2024 04/10/2024 lactated Ringer's infusion (CANCELED) 20 mL/hr, intravenous, Continuous, Starting on Sun04/09/24 at 1215, Preprocedure 1341 (New Bag - Provider: Shelly Mullins Capp [facility])1630 (Stopped - Provider: Guanaco Fofana [facility])1631 (Continued from OR - Provider: Goyo Agarwal [...] constipation, first line, Starting on Sun04/09/24 at 1856, Phase II/On Unit, 1st line for treatment [...] 2025 (Given - Provider: Elizabeth Esposito RN) 003 (Given - Provider: Elizabeth Esposito RN)0615 (Given [...] BE BASED ON THE PRIMARY CLINICAL RECORDS. [facility]. provides no warranty or guarantee of the accuracy or completeness of information in this document.
--- NOTE | 2025-03-12 11:34 | PM.CN ---
Consult Note: HPI Data of Consult Patient: known to practice within the last 3 years Requesting Physician: Delia Bowser NP Primary Care Provider: GRISELDA KRAUSE Consult Narrative Reason for consult: left shoulder/arm and right hip pain Narrative: Jovani Kong a pleasant 64 year old male presents for evaluation and management of chronic left shoulder pain and right hip pain. notes worsening left shoulder and upper arm pain since last visit, hx of OA unresponsive to > 6 weeks of HEP, heat, ice, tylenol, nsaids. previously underwent left suprascapular/axillary nerve block with >80% improvement greater than 6 months and pt is interested in repeating. he would also like to address his worsening right hip pain without known injury or cause. cc:: CC: Delia Bowser NP Review of Systems ROS Musculoskeletal Reports: extremity pain and joint pain PFSH [facility] Medical History (Updated 03/12/25 @ 11:37 by Delia Bowser NP) Tongue carcinoma ?C02.9 - Malignant neoplasm of tongue, unspecified (ICD-10) First degree AV block ?I44.0 - Atrioventricular block, first degree (ICD-10) Claudication of both lower extremities ?I73.9 - Peripheral vascular disease, unspecified (ICD-10) Nicotine dependence with current use ?F17.200 - Nicotine dependence, unspecified, uncomplicated (ICD-10) Oral cancer ?C06.9 - Malignant neoplasm of mouth, unspecified (ICD-10) Cervical radiculopathy ?M54.12 - Radiculopathy, cervical region (ICD-10) Myofascial pain ?M79.18 - Myalgia, other site (ICD-10) Mononeuropathy of left suprascapular nerve ?G56.82 - Other specified mononeuropathies of left upper limb (ICD-10) Neuropathy, axillary nerve ?G56.90 - Unspecified mononeuropathy of unspecified upper limb (ICD-10) Cervical spondylosis ?M47.812 - Spondylosis without myelopathy or radiculopathy, cervical region (ICD-10) Degenerative disc disease, cervical ?M50.30 - Other cervical disc degeneration, unspecified cervical region (ICD-10) Chronic prescription opiate use ?Z79.891 - intermediate (current) use of opiate analgesic (ICD-10) Myalgia, other site ?M79.18 - Myalgia, other site (ICD-10) Malignant neoplasm of head and neck ?C76.0 - Malignant neoplasm of head, face and neck (ICD-10) Squamous cell carcinoma Skin cancer ?C44.90 - Unspecified malignant neoplasm of skin, unspecified (ICD-10) Osteoarthritis ?M19.90 - Unspecified osteoarthritis, unspecified site (ICD-10) Depression ?F32.A - Depression, unspecified (ICD-10) Anxiety ?F41.9 - Anxiety disorder, unspecified (ICD-10) Seasonal allergies ?J30.2 - Other seasonal allergic rhinitis (ICD-10) Cataract ?H26.9 - Unspecified cataract (ICD-10) GERD (gastroesophageal reflux disease) ?K21.9 - Gastro-esophageal reflux disease without esophagitis (ICD-10) Dyspnea on exertion ?R06.09 - Other forms of dyspnea (ICD-10) PVD (peripheral vascular disease) ?I73.9 - Peripheral vascular disease, unspecified (ICD-10) High cholesterol ?E78.00 - Pure hypercholesterolemia, unspecified (ICD-10) Neck pain ?M54.2 - Cervicalgia (ICD-10) Low back pain ?M54.50 - Low back pain, unspecified (ICD-10) Smoker ?F17.200 - Nicotine dependence, unspecified, uncomplicated (ICD-10) Irregular heart beat ?I49.9 - Cardiac arrhythmia, unspecified (ICD-10) Hypertension ?I10 - Essential (primary) hypertension (ICD-10) Surgical History Status post surgical removal of malignant neoplasm of skin ?Z98.890 - Other specified postprocedural states (ICD-10) History of tonsillectomy ?Z90.89 - Acquired absence of other organs (ICD-10) Status post cervical spinal fusion ?Z98.1 - Arthrodesis status (ICD-10) Cataract extraction status of left eye ?Z98.42 - Cataract extraction status, left eye (ICD-10) H/O cervical spine surgery ?Z98.890 - Other specified postprocedural states (ICD-10) H/O neck dissection ?Z98.890 - Other specified postprocedural states (ICD-10) Family History Other Family history of COPD (chronic obstructive pulmonary disease) Family history of diabetes mellitus Family history of emphysema Family history of heart disease Family history of hypertension Family history of stroke Family history of throat cancer Social History Within the past year, how often did you have a drink containing alcohol: never Score interpretation: A score less than 4 is consistent with normal alcohol consumption. Smoking status: Current every day smoker Non-prescribed substance use: denies use Previous occupational history: disabled Highest level of school completed/degree received: high school graduate Little interest or pleasure in doing things: not at all Feeling down, depressed, or hopeless: not at all Meds Home Medications and Allergies Home Medications ?Medication ?Instructions ?Recorded ?Confirmed ?Type amlodipine 5 mg tablet (Norvasc) 10 mg PO DAILY 04/16/23 02/09/25 History aspirin 81 mg tablet,delayed 81 mg PO DAILY 04/16/23 02/09/25 History release (Adult Low Dose Aspirin) naloxone 4 mg/actuation nasal 4 mg intranasal Q2M PRN opioid 09/11/24 02/09/25 Rx spray (Narcan) overdose #2 ea hydrocodone 7.5 mg-acetaminophen 1 tab PO BID PRN pain #60 tabs 01/01/25 02/09/25 Rx 325 mg tablet alirocumab 75 mg/mL subcutaneous 75 mg subcut Q14D 01/27/25 02/09/25 History pen injector (Praluent Pen) citalopram 10 mg tablet 10 mg PO DAILY 01/27/25 02/09/25 History ezetimibe 10 mg tablet 10 mg PO DAILY 01/27/25 02/09/25 History multivitamin (Daily Multi-Vitamin 1 tab PO DAILY 01/27/25 02/09/25 History tablet) pantoprazole 40 mg tablet,delayed 40 mg PO Q12H 01/27/25 02/09/25 History release pravastatin 40 mg tablet 40 mg PO DAILY 01/27/25 02/09/25 History tizanidine 4 mg capsule 4 mg PO Q12H 01/27/25 02/09/25 History hydrocodone 7.5 mg-acetaminophen 1 tab PO BID PRN pain #60 tabs 03/04/25 Rx 325 mg tablet Allergies Allergy/AdvReac Type Severity Reaction Status Date / Time cephalexin (From Keflex) Allergy Unknown hives Verified 02/09/25 06:56 Exam Constitutional Documenting provider has reviewed patient's vital signs: yes Common normals: no apparent distress, oriented x3, healthy appearing, alert and well nourished General appearance: cooperative HENMT Common normals: normocephalic, hearing grossly normal bilaterally and moist oral mucous membranes Head and scalp: normocephalic Eye Common normals: PERRL Pupil: PERRL Neck & C-Spine Common normals: full ROM General: normal visual inspection Chest Common normals: inspection of chest normal Respiratory Common normals: normal respiratory effort, no retractions and no use of accessory muscles Extremity Left upper extremity: shoulder joint Right lower extremity: hip joint Other: right sij positive elyse(patricks), gaenslens, thigh thrust, compression test mild pain with external rotation of right hip left shoulder positive posterior liftoff, apleys scratch test, empty can test. increased pain with overhead ROM. strength 4/5 in LUE and 5/5 in RUE Neuro Common normals: oriented x3 Sensorium/orientation: alert Psych Common normals: mental status grossly normal, thought process normal, cooperative, affect normal, speech normal and activity/motor behavior normal Speech: normal speech Thought process: normal thought process Results Additional Findings Additional findings: If on a controlled substance or opioids, I have checked an [place] report on this patient and there are no aberrancies noted in the prescribing history.??If on a controlled substance or opioid a drug screen was completed and reviewed within the last year, and if there has not been a drug screen completed we ordered one today to monitor higher risk, state monitored pain medication use. As part of providing excellent, safe, comprehensive care, the following was completed at our patient's visit: 1. A medication reconciliation and review to ensure accurate knowledge of current/active medications, including asking our patients to inform us about any [id number] medications or herbal remedies/nutritional supplements/alternative remedies. 2. A review to specifically ensure our patients have had annual screening for screening for depression, screening for tobacco use, and screening for unhealthy alcohol use. For concerning screenings had a discussion with the patient, provided patient education, and recommended follow-up with primary care provider when appropriate. If patient noted with a risk of falling, they received education on strength, gait, and balance training to prevent future risk of falling. Portions of this note may have been carried over from the previous visit and updated as appropriate. Please note this office utilizes paper charting in addition to the electronic medical record. A list of current medications, vitals, and PMH is available there as the clinical staff outside of myself do not have access to [employer] charting during the clinic day operations. As part of providing quality comprehensive care the current medications, vitals, and PMH were reviewed in the paper chart. Assessment and Plan Assessment and Plan (1) Osteoarthritis of left shoulder: (2) Mononeuropathy of left suprascapular nerve: (3) Neuropathy, axillary nerve: (4) Right hip pain: (5) Sacroiliitis: Plan The patient has had over 3 months of moderate to severe left shoulder pain with functional impairment and inadequate response to conservative care including NSAIDS (unless there are contraindication such as concurrent blood thinners), multiple oral or topical pain medications, and home exercise program/physical therapy.? Patient has completed >6 weeks of guided home exercise program and/or formal physical therapy program without relief of their symptoms.? I have reviewed the imaging of the left shoulder and no red flags were identified.? The imaging reveals radiographic findings consistent with OA The Oswestry Disability Index was completed, and the patient scored a 27%.? repeat left suprascapular and axillary nerve block under fluoroscopy in consideration of RFA restart lyrica 50mg daily, pt reports he previously found benefit despite side effects update right hip and SIJ xray assessing pain continue HEP as tolerated f/u after injection
== END 2025-03-12 11:12 | disposition home or self-care (01) ==
LOC: PM 11:12
PROVIDERS: PCP Family Medicine; Visit Provider Nurse Practitioner
DX: M46.1 Sacroiliitis, not elsewhere classified (principal); M25.551 Pain in right hip; M19.012 Primary osteoarthritis, left shoulder; G56.90 Unspecified mononeuropathy of unspecified upper limb; G56.82 Other specified mononeuropathies of left upper limb
CPT/HCPCS: 72202; 73502; G0463

== ENCOUNTER 2025-03-12 11:53 | Outpatient (OUT) | payer MEDICARE, OTHER, SELFPAY ==
--- NOTE | 2025-03-12 12:08 | XR_ITS ---
The [address] [address] Patient Name: SHANTEL MELENDEZ MRN: [id number] date: 1960 Sex: M Assigned Patient Location: [facility] Current Patient Location: [facility] Accession/Order Number: [id number] Exam Date: 03/12/2025 12:12 Report Date: 03/12/2025 12:42 At the request of: BABATUNDE YOST NP Procedure: XR sacroiliac joint ABIODUN SI joints 3 views. Reason for exam: Sacroiliitis. COMPARISON: None FINDINGS: Right iliac stent is in place. Degenerative changes involving the SI joints. No acute bony process. Sacral foramina appear intact. XR/XR sacroiliac joint ABIODUN IMPRESSION: Degenerative changes involving the SI joints without acute bony process. Impression dictated by: Yung Pozo Jr., DMaria ROMaria R 03/12/2025 12:42 PM Dictation Location: [place] [address] Electronically authenticated by: [id number] Y Date: 03/12/2025 12:42
--- NOTE | 2025-03-12 12:08 | XR_ITS ---
The [address] [address] Patient Name: SHANTEL MELENDEZ MRN: [id number] date: 1960 Sex: M Assigned Patient Location: [facility] Current Patient Location: [facility] Accession/Order Number: [id number] Exam Date: 03/12/2025 12:12 Report Date: 03/12/2025 12:43 At the request of: BABATUNDE YOST NP Procedure: XR hip RT 2V w/ pelvis Right hip 2 views of one view pelvis. Reason for exam: Right hip pain. COMPARISON: None. FINDINGS: Mild degenerative changes involving the hips without acute bony process. XR/XR hip RT 2V w/ pelvis IMPRESSION: Mild degenerative changes of the hips without acute bony process. Impression dictated by: Yung Pozo Jr., D.O. 03/12/2025 12:43 PM Dictation Location: [place] [address] Electronically authenticated by: [id number] Y Date: 03/12/2025 12:43
--- OUTSIDE RECORDS SUMMARY | 2025-03-12 12:10 | XMS_ITS | CCD ---
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 Name Role Phone Griselda Hastings Primary Care Provider Griselda Hastings Attending Provider [phone] Griselda Hastings Unavailable Unavailable Unavailable Griselda Hastings Unavailable Sheng Schneider Unavailable Griselda Hastings Primary Care Provider [phone] Griselda Hastings Unavailable DO Griselda Hastings Primary [...] Care Provider MD Oziel Cadena Attending Provider [phone] Trish Carney Unavailable Griselda Hastings Primary Care Provider [phone] KunGriselda meneses Unavailable Tammi NORRIS, Oziel Ruiz Unavailable FLORES CAT Attending Unavailable FLORES CAT Admitting Unavailable KUNS, GRISELDA WRIGHT Primary Care Unavailable Kuns, DO Griselda Primary Care Provider [phone] Kuns, DO Griselda Attending Provider [phone] MD Lima Joseph Attending Provider [phone] BRET HDEZ Attending Unavailable PCP, OTHER Primary Care Unavailable PCP, Other Primary Care Physician Kuns, DO Griselda Primary Care Provider [phone] BAILEY Gaytan Emergency Provider quentin, DO Rohit Mullins Emergency Provider Darling, DO Griselda Attending Provider [phone] Lilliam Cason Unavailable Andreas, DO Griselda Primary Care Provider BAILEY Gaytan Emergency Provider [phone] Tuquentin, DO Rohit Mullins Emergency Provider Darling, DO Griselda Attending Provider [phone] MD Lilliam Cason Attending Provider Ruddy Harvey [phone] BAILEY Mota Attending Provider MD Ruddy Havrey Attending Provider [phone] Kuns, DO Griselda Primary Care Provider [phone] Kuns DO, Griselda R Primary Care Provider Kuns, DO Griselda Primary Care Provider JOSE CRUZ KHAN Attending Unavailable JOSE CRUZ KHAN Referring Unavailable KUNS, GRISELDA R Primary Care Unavailable JOSE CRUZ KHAN Attending Unavailable JOSE CRUZ KHAN Referring Unavailable KUNS, GRISELDA R Primary Care Unavailable Kuns, DO Griselda Primary Care Provider MD Ruddy Harvey Attending Provider Kuns DO, Griselda R Primary Care Provider [phone] Kuns DO, Griselda R Primary Care Provider Stiven NORRIS, Helder B Unavailable Kuns, DO Burnstt Attending Provider AndreasGriselda Zackary Primary Care Provider [phone] Oziel Cadena MD Unavailable Kuns DO, Griselda R Primary Care Provider Milks PA-C, Solomon A Unavailable Milks PA-C, Solomon A Unavailable Kuns DO, Griselda R Primary Care Provider Andreas DO, Griselda Primary Care Provider Milks PA-C, Solomon A Attending Provider Andreas DO, Griselda Primary Care Provider [phone] Milks PA-C, Solomon A Attending Provider Wes NORRIS, Ruddy Moraes Attending Provider Daisy Paul MD Emergency Provider Kuns DO, Griselda R Primary Care Provider Andreas DO, Griselda Primary Care Provider [phone] Manisha Negron APRN Emergency Provider Kuns DO, Griselda Other Provider Manisha Negron APRN Attending Provider Milks PA-C Solomon Nae Attending Provider Andreas [...] Care Unavailable HARRIS, XIAOFEI Referring Unavailable KUNS, GRISEDLA R Primary Care Unavailable HARRIS, XIAOFEI Admitting [...] Attending Provider Kuns Katy JOSÉtt Attending Provider [phone] HARRIS, XIAOFEI Referring Unavailable KUNS, GRISELDA R [...] Attending Provider Elizabeth Hagan PA-C Attending Provider Nathanael Arango [...] Attending Provider Sofia Arias DO Attending Provider Griselda Hastings DO Primary Care Provider Griselda Hastings DO Attending Provider Kuns, Griselda Primary Care Unavailable Daisy Paul Admitting Unavailable Daisy Paul Attending Unavailable Manisha Negron Attending Unavailable Kuns, Griselda Primary Care Unavailable Manisha Negron Admitting Unavailable Kuns, Griselda Primary Care Unavailable Kuns, Grieslda Attending Unavailable Kuns, Griselda Admitting Unavailable Kuns, [...] (antibiotic) (1 source) Cephalexin Drug Allergy 8 [facility] (20 sources) Cephalexin; Translations: [CEPHALEXIN] Drug Allergy 8 [facility] (20 sources) Cephalexin; Translations: [Keflex] Drug Allergy rash EXPO Other (1 source) Cephalexin; Translations: [Keflex] Drug Allergy [facility] [place] (17 sources) Keflet; Translations: [KEFLET] Propensity to adverse reactions 4 [facility] (1 source) ALLERGIES NOT ON FILE; Translations: [ALLERGIES NOT ON FILE] Propensity to adverse reactions (disorder) [facility] (3 sources) varenicline; Translations: [varenicline] Drug Allergy 5 [facility] NEGATED: Highlighted row has been ruled out! (1 source) natural latex rubber; Translations: [LATEX, NATURAL RUBBER] Drug allergy (disorder) [place] NEGATED: Highlighted row has been ruled out! (1 source) No IV Contrast Allergy.; Translations: [IV Dye, Iodine Containing] Drug allergy (disorder) [facility] [place] Medications Current Medications Medication Drug Class(es) Dates [...] 28, 2024 10:44am Start: 10-10-2023 HYDROcodone-ac etaminophen ([place]) 5-325 MG tablet 10/10/2023 Active Start: 09-05-2023 End: 04-01-2024 take 1 tablet by mouth every eight hours as needed Hydrocodone-Acetaminophen 5-325 mg table t Discontinued TAB PO Every 8 hours as needed September 05, 2023 12:00am April 01, 2024 11:01am Start: 06-04-2023 take 1 tablet by myles th once daily as needed for pain HYDROcodone-acetaminophen ([place]) 5-325 MG tablet take 1 tablet orally daily NEEDED FOR PAIN MUST LAST 30 DAYS 10/10/2023 Active Start: 12-10-2017 End: 04-29-2018 take 1 tablet by mouth every four hours Hydrocodone-Acetaminophen ([place]) 5-325 mg tablet Discontinued 1 TAB PO Q4H December 10, 2017 April 29, 2018 3:12pm End: 04-10-2024 take 1.5 tablets by mouth twice daily as needed for pain HYDROcodone-acetaminophen ([place]) 5-325 mg tablet Take 1.5 tablets by [...] November 17, 2024 2:16pm polyethylene glycol 3350 26252 mg powder for oral solution (1 source) [...] 01-Nov-2021 Active take 1 capsule by mo [facility] once daily at bedtime tiZANidine (Zanaflex) [...] AFTERNOON and 2 at bedtime as directed [id number] 200 actuat albuterol 0.09 mg/actuat metered dose [...] 26, 2023 12:00am May 07, 2023 9:23am [id number] Njc-Mflv-Nbr-Asb-C (9 sources) Osmotic Laxative, Vitamin C Start: 10-10-2024 End: 10-24-2024 [id number] Qls-Mloq-Bxg-Asb-C (Plenvu) 140-9-5.2 gram powder in packet, sequential Discontinued 0 PO .COMPLEX 3 October 10, 2024 12:00am October 24, 2024 11:48am PO Start: 10-10-2024 [id number] Cantrell f-Fwwv-Cup-Asb-C (Plenvu) 140-9-5.2 gram powder in packet, sequential [...] Comment on above: Take 1 tablet by [facility] twice daily. dexamethasone phosphate 4 mg/ml [...] Comment on above: TAKE 1 CAPSULE BY [facility] EVERY 12 HOURS FOR [...] 02/27/2019 10/17/2022 Discontinued take 1 capsule by [facility] every twenty-four hours Gabapentin 100 MG 1 capsule Orally Once a day Not-Taking/PRN Comment on above: Take 1 capsule by [facility] three times daily for 30 days. gadoterate meglumine (Dotarem) 0.5 mmol/mL contrast injection 30 mL (1 source) Start: End: inject 30 mL intravenously once 30 mL, intravenous, Once in imaging, Starting on [facility] 12/13/23 at 0817, For 1 dose, [...] 17, 2022 9:01am [facility] at [facility] as [...] 02, 2023 1:48pm take 1 capsule by [facility] once daily at mealtime indomethacin SR [...] Coronary arteriosclerosis; Translations: [Atherosclerotic heart disease of [place] coronary artery without angina pectoris] Onset: 4 [...] US ankle/arm indiceson 02-27 US ankle/arm indices [place] [address] Ultrasound Report Signed Patient: Shantel Melendez MR#: [id number] : 1960 Acct:[id number] Age/Sex: 64 / M ADM Date: 02/26/25 Loc: Room: Type: [facility] Attending Dr: Griselda Hastings DO Ordering [...] Harvey MD,FACS,FSVS 02/27/2025 7:42 AM Dictation Location: [place] [address] Tech: Agueda Helm Transcribed By: PWS 02/27/25741 Dictated By: Ruddy Harvey MD 02/27/25740 Signed By: 02/27/25741 Normal [facility] Basophils Auto (Bld) [#/Vol] Ordered By: Sofia Marker on 02-18-2025 Basophils (Bld) [#/Vol] 0.1 10 3/uL 0.0-0.1 [facility] Basophils/100 WBC Auto (Bld) Ordered By: Sofia Marker on 02-18-2025 Basophils/100 WBC (Bld) 0.7 % 0.2-2.0 [facility] Eosinophils/100 WBC Auto (Bl d)Ordered By: Sofia Marker on 02-18-2025 Eosinophils/100 WBC (Bld) 1.1 % 0.9-7.0 [facility] Erythrocyte distribution wid th Auto (RBC) [Ratio]Ordered By: Sofia Marker on 02-18-2025 Erythrocyte distribution width (RBC) [Ratio] 13.4 % 11.0-15.0 [facility] Fibrin D-dimer [Presence] in Platelet poor plasma by Latex agglutinationOrdered By: Sofia Marker on 02-18-2025 Fibrin D-dimer LA Ql (PPP) 0.56 mg/L FEU <=0.59 [facility] Comment on above: Increases in D-Dimer concentration [...] on 02-18-2025 Globulin (S) [Mass/Vol] 2.5 g/dL [facility] Glomerular filtration rate ( GFR) estimation in non- AmericanOrdered By: Sofia Marker on 02-18-2025 GFR/1.73 sq M.predicted among non-blacks MDRD (S/P/Bld) [Vol rate/Area] mL/min/{1.73_m2} >=60 mL/min/1.7 3m 2 [facility] Hematocrit Auto (Bld) [Volum e fraction]Ordered By: Sofia Marker on 02-18-2025 Hematocrit (Bld) [Volume fraction] 39.7 % Low 42.0-54.0 [facility] Hemoglobin [Mass/volume] in BloodOrdered By: Sofia Marker on 02-18-2025 Hemoglobin (Bld) [Mass/Vol] 13.8 g/dL Low 14.0-18.0 [facility] Laboratory - Chemistry and C hemistry - challengeOrdered By: Sofia Marker on 02-18-2025 Albumin [Mass/Vol] 3.0 g/dL Low 3.4-5.0 [facility] ALP [Catalytic activity/Vol] 68 U/L 46-116 [facility] ALT [Catalytic activity/Vol] 18 U/L 16-63 [facility] AST [Catalytic activity/Vol] 11 U/L Low 15-37 [facility] Bilirubin [Mass/Vol] 0.8 mg/dL 0.2-1.0 [facility] Calcium [Mass/Vol] 9.5 mg/dL 8.5-10.1 [facility] Chloride [Moles/Vol] 108 mmol/L High 98-107 [facility] CO2 [Moles/Vol] 27.5 mmol/L 21.0-32.0 [facility] Creatinine [Mass/Vol] 0.87 mg/dL 0.70-1.30 [facility] GFR/1.73 sq M.predicted MDRD (S/P/Bld) [Vol rate/Area] mL/min/{1.73_m2} >=60 mL/min/1.7 3m 2 [facility] Glucose [Mass/Vol] 78 mg/dL 74-106 [facility] Potassium [Moles/Vol] 4.1 mmol/L 3.5-5.1 [facility] Protein [Mass/Vol] 5.5 g/dL Low 6.4-8.2 [facility] Sodium [Moles/Vol] 144 mmol/L 136-145 [facility] Urea nitrogen [Mass/Vol] 11.0 mg/dL 7.0-18.0 [facility] Urea nitrogen/Creatinine [Mass ratio] 12.6 mg/mg [facility] - Hematology and Cell countsOrdered By: Sofia Marker on 02-18-2025 Immature granulocytes/100 WBC (Bld) 0.3 % 0.0-0.5 [facility] Leukocytes [#/volume] correc mone for nucleated erythrocytes in Blood by Automated counOrdered By: Sofia Marker on 02-18-2025 WBC corrected for nucl RBC Auto (Bld) [#/Vol] 7.4 10 3/uL 4.0-11.0 [facility] Lymphocytes Auto (Bld) [#/Vo l]Ordered By: Sofia Marker on 02-18-2025 Lymphocytes (Bld) [#/Vol] 2.1 10 3/uL 1.2-3.8 [facility] Lymphocytes/100 WBC Auto (Bl d)Ordered By: Sofia Marker on 02-18-2025 Lymphocytes/100 WBC (Bld) 28.8 % 20.5-60.0 [facility] MCH Auto (RBC) [Entitic mass ]Ordered By: Sofia Marker on 02-18-2025 MCH (RBC) [Entitic mass] 32.5 pg 25.9-34.0 [facility] MCHC Auto (RBC) [Mass/Vol]Or dered By: Sofia Marker on 02-18-2025 MCHC (RBC) [Mass/Vol] 34.8 g/dL 29.9-35.2 [facility] MCV Auto (RBC) [Entitic vol] Ordered By: Sofia Marker on 02-18-2025 MCV (RBC) [Entitic vol] 93.4 fL 80.0-94.0 [facility] Monocytes Auto (Bld) [#/Vol] Ordered By: Sofia Marker on 02-18-2025 Monocytes (Bld) [#/Vol] 0.4 10 3/uL 0.3-0.8 [facility] Monocytes/100 WBC Auto (Bld) Ordered By: Sofia Marker on 02-18-2025 Monocytes/100 WBC (Bld) 5.6 % 1.7-12.0 [facility] Neutrophils Auto (Bld) [#/Vo l]Ordered By: Sofia Marker on 02-18-2025 Neutrophils (Bld) [#/Vol] 4.7 10 3/uL 1.4-6.5 [facility] Neutrophils/100 WBC Auto (Bl d)Ordered By: Sofia Marker on 02-18-2025 Neutrophils/100 WBC (Bld) 63.5 % 43.0-75.0 [facility] No Panel InformationOrdered By: Sofia Marker on 02-18-2025 Eosinophils # (Auto) 0.1 10 3/uL 0.0-0.7 [facility] Immature Granulocyte # (Auto) 0.02 10 3/uL 0.00-0.03 [facility] Troponin I High Sensitivity 11.3 pg/mL 4.0-76.1 [facility] Comment on above: CUT-OFF POINTS HAVE BEEN [...] volume (Bld) [Entitic vol] 11.4 fL 9.5-13.5 [facility] Platelets Auto (Bld) [#/Vol] Ordered By: Sofia Marker on 02-18-2025 Platelets (Bld) [#/Vol] 246 10 3/uL 150-450 [facility] RBC Auto (Bld) [#/Vol]Ordere d By: Sofia Marker on 02-18-2025 RBC (Bld) [#/Vol] 4.25 10 6/uL Low 4.70-6.10 [facility] Serum or plasma albumin/glob ulin mass ratioOrdered By: Sofia Marker on 02-18-2025 Albumin/Globulin [Mass ratio] 1.2 {ratio} [facility] Serum or plasma anion gap de terminationOrdered By: Sofia Marker on 02-18-2025 Anion gap [Moles/Vol] 12.6 mmol/L [facility] 36on 02-13-2025 36 Patient scheduled fo r 03/24/25 @ 10:30am [facility] 36 LVM for pt to call fatimah ferrer to schedule consult with Dr. Ramirez to discuss SCS placement. Imaging requested. Please transfer pt to pre reg after call. Please inform development writer when scheduled. [employer] reps will need notified. Normal [facility] Telephoneon 02-13-2025 Telephone [phone] Shantel Melendez 1960 M Date Provider Department Center 02/13/2025 AYAH ALCOCER [facility] SURG Second Fl No family history on file Normal [facility] Activated partial thrombopla stin time (aPTT) in platelet poor plasma by coagulation aOrdered By: Andrius Giedraitis on 01-27-2025 aPTT Coag (PPP) [Time] 24.2 s 22.3-36.2 [facility] Basophils Auto (Bld) [#/Vol] Ordered By: Andrius Giedraitis on 01-27-2025 Basophils (Bld) [#/Vol] 0.0 10 3/uL 0.0-0.1 [facility] Basophils/100 WBC Auto (Bld) Ordered By: Andrius Giedraitis on 01-27-2025 Basophils/100 WBC (Bld) 0.2 % 0.2-2.0 [facility] Eosinophils/100 WBC Auto (Bl d)Ordered By: Andrius Giedraitis on 01-27-2025 Eosinophils/100 WBC (Bld) 0.1 % Low 0.9-7.0 [facility] Erythrocyte distribution wid th Auto (RBC) [Ratio]Ordered By: Sarina Ramsey on 01-27-2025 Erythrocyte distribution width (RBC) [Ratio] 14.1 % 11.0-15.0 [facility] Glomerular filtration rate ( GFR) estimation in non- AmericanOrdered By: Sarina Ramsey on 01-27-2025 GFR/1.73 sq M.predicted among non-blacks MDRD (S/P/Bld) [Vol rate/Area] mL/min/{1.73_m2} >=60 mL/min/1.7 3m 2 [facility] Hematocrit Auto (Bld) [Volum e fraction]Ordered By: Sarina Ramsey on 01-27-2025 Hematocrit (Bld) [Volume fraction] 38.0 % Low 42.0-54.0 [facility] Hemoglobin [Mass/volume] in BloodOrdered By: Sarina Ramsey on 01-27-2025 Hemoglobin (Bld) [Mass/Vol] 13.0 g/dL Low 14.0-18.0 [facility] INR in Platelet poor plasma by Coagulation assayOrdered By: Sarina Ramsey on 01-27-2025 INR Coag (PPP) [Relative time] 1.09 {INR} [facility] Comment on above: DESIRED INR:2.0-3.0 CONDITIONS NOT LISTED BELOW2.5-3.5 FOR PROSTHETIC HEART VALVE REPLACEMENT2.5-3.5 RECURRENT THROMBOSIS Laboratory - Chemistry and C hemistry - challengeOrdered By: Sarina Ramsey on 01-27-2025 Calcium [Mass/Vol] 9.2 mg/dL 8.5-10.1 [facility] Chloride [Moles/Vol] 106 mmol/L 98-107 [facility] CO2 [Moles/Vol] 28.7 mmol/L 21.0-32.0 [facility] Creatinine [Mass/Vol] 0.81 mg/dL 0.70-1.30 [facility] GFR/1.73 sq M.predicted MDRD (S/P/Bld) [Vol rate/Area] mL/min/{1.73_m2} >=60 mL/min/1.7 3m 2 [facility] Glucose [Mass/Vol] 89 mg/dL 74-106 [facility] Potassium [Moles/Vol] 3.7 mmol/L 3.5-5.1 [facility] Sodium [Moles/Vol] 138 mmol/L 136-145 [facility] Urea nitrogen [Mass/Vol] 17.0 mg/dL 7.0-18.0 [facility] Urea nitrogen/Creatinine [Mass ratio] 21.0 mg/mg [facility] Laboratory - Hematology and Cell countsOrdered By: Sarina Ramsey on 01-27-2025 Immature granulocytes/100 WBC (Bld) 0.2 % 0.0-0.5 [facility] Leukocytes [#/volume] correc mnoe for nucleated erythrocytes in Blood by Automated counOrdered By: Andrius Giedraitis on 01-27-2025 WBC corrected for nucl RBC Auto (Bld) [#/Vol] 8.2 10 3/uL 4.0-11.0 [facility] Lymphocytes Auto (Bld) [#/Vo l]Ordered By: Andrius Giedraitis on 01-27-2025 Lymphocytes (Bld) [#/Vol] 2.4 10 3/uL 1.2-3.8 [facility] Lymphocytes/100 WBC Auto (Bl d)Ordered By: Andrius Giedraitis on 01-27-2025 Lymphocytes/100 WBC (Bld) 29.3 % 20.5-60.0 [facility] MCH Auto (RBC) [Entitic mass ]Ordered By: Andrius Giedraitis on 01-27-2025 MCH (RBC) [Entitic mass] 32.1 pg 25.9-34.0 [facility] MCHC Auto (RBC) [Mass/Vol]Or dered By: Andrius Giedraitis on 01-27-2025 MCHC (RBC) [Mass/Vol] 34.2 g/dL 29.9-35.2 [facility] MCV Auto (RBC) [Entitic vol] Ordered By: Andrius Giedraitis on 01-27-2025 MCV (RBC) [Entitic vol] 93.8 fL 80.0-94.0 [facility] Monocytes Auto (Bld) [#/Vol] Ordered By: Andrius Giedraitis on 01-27-2025 Monocytes (Bld) [#/Vol] 0.4 10 3/uL 0.3-0.8 [facility] Monocytes/100 WBC Auto (Bld) Ordered By: Andrius Giedraitis on 01-27-2025 Monocytes/100 WBC (Bld) 5.0 % 1.7-12.0 [facility] Neutrophils Auto (Bld) [#/Vo l]Ordered By: Andrius Giedraitis on 01-27-2025 Neutrophils (Bld) [#/Vol] 5.4 10 3/uL 1.4-6.5 [facility] Neutrophils/100 WBC Auto (Bl d)Ordered By: Andrius Giedraitis on 01-27-2025 Neutrophils/100 WBC (Bld) 65.2 % 43.0-75.0 [facility] No Panel InformationOrdered By: Andrius Giedraitis on 01-27-2025 Eosinophils # (Auto) 0.0 10 3/uL 0.0-0.7 [facility] Immature Granulocyte # (Auto) 0.02 10 3/uL 0.00-0.03 [facility] Platelet mean volume Auto (B ld) [Entitic vol]Ordered By: Andrius Giedraitis on 01-27-2025 Platelet mean volume (Bld) [Entitic vol] 11.4 fL 9.5-13.5 [facility] Platelets Auto (Bld) [#/Vol] Ordered By: Andrius Giedraitis on 01-27-2025 Platelets (Bld) [#/Vol] 214 10 3/uL 150-450 [facility] Prothrombin time (PT)Ordered By: Andrius Giedraitis on 01-27-2025 PT Coag (PPP) [Time] 11.5 s 9.0-11.6 [facility] RBC Auto (Bld) [#/Vol]Ordere d By: Sarina Flowersfrances on 01-27-2025 RBC (Bld) [#/Vol] 4.05 10 6/uL Low 4.70-6.10 [facility] Serum or plasma anion gap de terminationOrdered By: Boubacarguillaume Ramsey on 01-27-2025 Anion gap [Moles/Vol] 7.0 mmol/L [facility] No Panel Informationon 01-08 [facility] [...] By: Yehuda Pozo on 2024 Study report [facility] [address] [place] [address] [place] [address] XRay Report Signed Patient: Shantel Melendez MR#: [id number] : 1960 Acct:[id number] Age/Sex: 64 / M ADM Date: 5 Loc: XDS Room: Type: [facility] Attending Dr: Griselda Hastings DO Copies [...] DO 11/24/24 1630 Signed By: 11/24/24 1630 [facility] XR chest 2V*on 2024 XR chest 2V* [place] [address] XRay Report Signed Patient: Shantel Melendez MR#: [id number] : 1960 Acct:[id number] Age/Sex: 64 / M ADM Date: 11/24/24 [facility]: Type: [facility] Attending Dr: Griselda Hastings DO Copies [...] 1630 Signed By: 11/24/24 1630 Normal [facility] Influenza virus B Ag [Presen ce] in Upper respiratory specimen by Rapid immunoassayon 11-19-2024 FLUBV Ag IA.rapid Ql (Nph) Influenza virus B Ag [Presence] in Upper respiratory specimen by Rapid immunoassay [facility] FLUBV Ag IA.rapid Ql (Nph) Negative [facility] No Panel Informationon 11-19 Influenza Type A (Rapid) Negative [facility] POC SARS CoV-2 Antigen Negative [facility] No Panel InformationOrdered By: Griselda Hastings on 11-19-2024 Quick Strep (POC) [facility] RSV (POC) [facility] CNOVSPon 11-07-2024 CNOVSP Visit (SP) Office ([place]) ----- SHANTEL MELENDEZ ([id number]) 1960 M Date Time Provider Department 11/07/24 9:20 AM RACQUEL COLE During your visit today, we recorded the following information about you: Temperature Pulse Respiration Blood pressure 97.5 degrees 72/minute 16/minute 115/89 Weight Height 79.3 kg 1.706 m Racquel Cole MD 11/07/2024 11:09 AM Signed NAME: Shantel Melendez CLINIC NO.: [id number] DATE OF SERVICE: November 07, 2024 ([place]) Some elements in this clinic note that are critical to medical decision making have been carefully reviewed and included from a prior clinic note dated: November 02, 2023 ([place]) Referring Provider: Griselda Hastings, DO Additional Clinicians involved in Shantel Melendez's care: Dr Kimberly Nichole ENT, Dr. 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 10/05/2021 - MRI Brain: [facility] There is T2 and T2 flair hyperintense [...] may represent (more content not included)... Normal [facility] No Panel InformationOrdered By: Nathanael Arango on 11-05-2024 Miscellaneous Pathology Test See comment [facility] Comment on above: See report. Scanned copy available in EMR. Pathology Request for Lab Co rpon 11-05-2024 Pathology Request for Lab Nancy Normal [facility] Comment on above: Order Comment: GI SP ECIMEN Result Comment: See report. Scanned copy available in EMR. PERFORMED BY: [place] [address] PATHOLOGIST PIPER HELPER EDUARDO HOLLINGSWORTH M.D. Performed By: #### P ATH TO [facility] #### [address] Basophils Auto (Bld) [#/Vol] on 11-03-2024 Basophils (Bld) [#/Vol] Automated basophil count <0.11 [facility] Basophils (Bld) [#/Vol] 0.06 10*3/uL <0.11 [facility] Basophils/100 WBC Auto (Bld) on 11-03-2024 Basophils/100 WBC (Bld) Automated basophil % [facility] Basophils/100 WBC (Bld) 1.0 % [facility] Blood manual differential co mment interpretation narrativeon 11-03-2024 Manual differential comment Curtis (Bld) [Interp] Blood manual differential comment interpretation narrative [facility] Manual differential comment Curtis (Bld) [Interp] Auto [facility] CBC W Auto Differential pane l (Bld)on 11-03-2024 Basophils (Bld) [#/Vol] 0.06 10*3/uL [facility] Basophils/100 WBC (Bld) 1 % [facility] Differential cell count method Nom (Bld) Auto [facility] Eosinophils (Bld) [#/Vol] 0.16 10*3/uL [facility] Eosinophils/100 WBC (Bld) 2.7 % [facility] Erythrocyte distribution width (RBC) [Ratio] 14.6 % 11.5 - 15.0 % [facility] Hematocrit (Bld) [Volume fraction] 40 % 39.0 - 51.0 % [facility] Hemoglobin (Bld) [Mass/Vol] 13.6 g/dL 13.0 - 17.0 g/dL [facility] Immature granulocytes (Bld) [#/Vol] [facility] Immature granulocytes/100 WBC (Bld) 0.2 % [facility] Lymphocytes (Bld) [#/Vol] 2.73 10*3/uL [facility] Lymphocytes/100 WBC (Bld) 45.3 % [facility] MCH (RBC) [Entitic mass] 31.9 pg 26.0 - 34.0 pg [facility] MCHC (RBC) [Mass/Vol] 34 g/dL 30.5 - 36.0 g/dL [facility] MCV (RBC) [Entitic vol] 93.9 fL 80.0 - 100.0 fL [facility] Monocytes (Bld) [#/Vol] 0.4 10*3/uL [facility] Monocytes/100 WBC (Bld) 6.6 % [facility] Neutrophils (Bld) [#/Vol] 2.67 10*3/uL [facility] Neutrophils/100 WBC (Bld) 44.2 % [facility] Nucleated RBC (Bld) [#/Vol] [facility] Nucleated RBC/100 WBC (Bld) [Ratio] 0 % /100 WBC [facility] Platelet mean volume (Bld) [Entitic vol] 11 fL 9.0 - 12.7 fL [facility] Platelets (Bld) [#/Vol] 281 10*3/uL [facility] RBC (Bld) [#/Vol] 4.26 10*6/uL 4.20 - 6.00 m/uL [facility] WBC (Bld) [#/Vol] 6.03 10*3/uL [facility] Basophils (Bld) [#/Vol] 0.06 10*3/uL Normal <0.11 [facility] Comment on above: Order Comment: Speci men Type: BLOOD SPECIMEN [facility] Facility: [facility] Address: [address] [place] [address] Performed By: #### 5 7021-8 #### [facility] CLIA [id number] [address] [place] [address] 87880 Basophils/100 WBC (Bld) 1.0 % Normal [facility] Comment on above: Order Comment: Speci men Type: BLOOD SPECIMEN Ordering Facility: [facility] Address: [address] [place] [address] Performed By: #### 5 7021-8 #### [facility] CLIA [id number] [address] [place] [address] 60446 Differential cell count method Nom (Bld) Auto Normal [facility] Comment on above: Order Comment: Speci men Type: BLOOD SPECIMEN [facility]ing Facility: [facility] Address: [address] [place] [address] Performed By: #### 5 7021-8 #### [facility] CLIA [id number] [address] [place] [address] 66869 Eosinophils (Bld) [#/Vol] 0.16 10*3/uL Normal <0.46 [facility] Comment on above: Order Comment: Speci men Type: BLOOD SPECIMEN [facility]ing Facility: [facility] Address: [facility] [place] [address] Performed By: #### 5 7021-8 #### [facility] CLIA [id number] [address] [place] [address] 97068 Eosinophils/100 WBC (Bld) 2.7 % Normal [facility] Comment on above: Order Comment: Speci men Type: BLOOD SPECIMEN Ordering Facility: [facility] Address: [address] [place] [address] Performed By: #### 5 7021-8 #### [facility] CLIA [id number] [address] [place] [address] 71668 Erythrocyte distribution width (RBC) [Ratio] 14.6 % Normal 11.5-15.0 [facility] Comment on above: Order Comment: Speci men Type: BLOOD SPECIMEN Ordering Facility: [facility] Address: [address] [place] [address] Performed By: #### 5 7021-8 #### [facility] CLIA [id number] [address] [place] [address] 86822 Hematocrit (Bld) [Volume fraction] 40.0 % Normal 39.0-51.0 [facility] Comment on above: Order Comment: Speci men Type: BLOOD SPECIMEN [facility]ing Facility: [facility] Address: [address] [place] [address] Performed By: #### 5 7021-8 #### [facility] CLIA [id number] [address] [place] [address] 27521 Hemoglobin (Bld) [Mass/Vol] 13.6 g/dL Normal 13.0-17.0 [facility] Comment on above: Order Comment: Speci men Type: BLOOD SPECIMEN Ordering Facility: [facility] Address: [address] [place] [address] Performed By: #### 5 7021-8 #### [facility] CLIA [id number] [address] [place] [address]492 Immature granulocytes (Bld) [#/Vol] 10*3/uL Normal <0.10 [facility] Comment on above: Order Comment: Speci men Type: BLOOD SPECIMEN Ordering Facility: [facility] Address: [address] [place] [address] Performed By: #### 5 7021-8 #### [facility] CLIA [id number] [address] [place] [address] Immature granulocytes/100 WBC (Bld) 0.2 % Normal [facility] Comment on above: Order Comment: Speci men Type: BLOOD SPECIMEN [facility]ing Facility: [facility] Address: [address] [place] [address] Performed By: #### 5 7021-8 #### [facility] CLIA [id number] [address] [place] [address] 60587 Lymphocytes (Bld) [#/Vol] 2.73 10*3/uL Normal 1.00-4.00 [facility] Comment on above: Order Comment: Speci men Type: BLOOD SPECIMEN Ordering Facility: [facility] Address: [address] [place] [address] Performed By: #### 5 7021-8 #### [facility] CLIA [id number] [address] [place] [address] 67478 Lymphocytes/100 WBC (Bld) 45.3 % Normal [facility] Comment on above: Order Comment: Speci men Type: BLOOD SPECIMEN [facility]ing Facility: [facility] Address: [address] [place] [address] Performed By: #### 5 7021-8 #### [facility] CLIA [id number] [address] [place] [address] 36601 MCH (RBC) [Entitic mass] 31.9 pg Normal 26.0-34.0 [facility] Comment on above: Order Comment: Speci men Type: BLOOD SPECIMEN [facility]ing Facility: [facility] Address: [address] [place] [address] Performed By: #### 5 7021-8 #### [facility] CLIA [id number] [address] [place] [address] 33336 MCHC (RBC) [Mass/Vol] 34.0 g/dL Normal 30.5-36.0 [facility] Comment on above: Order Comment: Speci men Type: BLOOD SPECIMEN Ordering Facility: [facility] Address: [address] [place] [address] Performed By: #### 5 7021-8 #### [facility] CLIA [id number] [address] [place] [address] 18459 MCV (RBC) [Entitic vol] 93.9 fL Normal 80.0-100.0 [facility] Comment on above: Order Comment: Speci men Type: BLOOD SPECIMEN [facility]ing Facility: [facility] Address: [address] [place] [address] Performed By: #### 5 7021-8 #### [facility] CLIA [id number] [address] [place] [address] 08363 Monocytes (Bld) [#/Vol] 0.40 10*3/uL Normal <0.87 [facility] Comment on above: Order Comment: Speci men Type: BLOOD SPECIMEN Ordering Facility: [facility] Address: [address] [place] [address] Performed By: #### 5 7021-8 #### [facility] CLIA [id number] [address] [place] [address] 24929 Monocytes/100 WBC (Bld) 6.6 % Normal [facility] Comment on above: Order Comment: Speci men Type: BLOOD SPECIMEN Ordering Facility: [facility] Address: [address] [place] [address] Performed By: #### 5 7021-8 #### [facility] CLIA [id number] [address] [place] [address] 99920 Neutrophils (Bld) [#/Vol] 2.67 10*3/uL Normal 1.45-7.50 [facility] Comment on above: Order Comment: Speci men Type: BLOOD SPECIMEN Ordering Facility: [facility] Address: [address] [place] [address] Performed By: #### 5 7021-8 #### [facility] CLIA [id number] [address] [place] [address] 38440 Neutrophils/100 WBC (Bld) 44.2 % Normal [facility] Comment on above: Order Comment: Speci men Type: BLOOD SPECIMEN [facility]ing Facility: [facility] Address: [address] [place] [address] Performed By: #### 5 7021-8 #### [facility] CLIA [id number] [address] [place] [address] Nucleated RBC (Bld) [#/Vol] 10*3/uL Normal <0.01 [facility] Comment on above: Order Comment: Speci men Type: BLOOD SPECIMEN [facility]ing Facility: [facility] Address: [address] [place] [address] Performed By: #### 5 7021-8 #### [facility] CLIA [id number] [address] [place] [address] 32851 Nucleated RBC/100 WBC (Bld) [Ratio] 0.0 /100 WBC Normal [facility] Comment on above: Order Comment: Speci men Type: BLOOD SPECIMEN [facility]ing Facility: [facility] Address: [address] [place] [address] Performed By: #### 5 7021-8 #### [facility] CLIA [id number] [address] [place] [address] 12204 Platelet mean volume (Bld) [Entitic vol] 11.0 fL Normal 9.0-12.7 [facility] Comment on above: Order Comment: Speci men Type: BLOOD SPECIMEN [facility]ing Facility: [facility] Address: [address] [place] [address] Performed By: #### 5 7021-8 #### [facility] CLIA [id number] [address] [place] [address] 72194 Platelets (Bld) [#/Vol] 281 10*3/uL Normal 150-400 [facility] Comment on above: Order Comment: Speci men Type: BLOOD SPECIMEN [facility]ing Facility: [facility] Address: [address] [place] [address] Performed By: #### 5 7021-8 #### [facility] CLIA [id number] [address] [place] [address] RBC (Bld) [#/Vol] 4.26 10*6/uL Normal 4.20-6.00 [facility] Comment on above: Order Comment: Speci men Type: BLOOD SPECIMEN Ordering Facility: [facility] Address: [address] [place] [address] Performed By: #### 5 7021-8 #### [facility] CLIA [id number] [address] [place] [address] 60928 WBC (Bld) [#/Vol] 6.03 10*3/uL Normal 3.70-11.00 [facility] Comment on above: Order Comment: Speci men Type: BLOOD SPECIMEN Ordering Facility: [facility] Address: [address] [place] [address] Performed By: #### 5 7021-8 #### [facility] CLIA [id number] [address] [place] [address]4508 Hyun 11-03-2024 CNPN Telephone (HEMTSA) ----- SHANTEL MELENDEZ ([id number]) 1960 M Date Time Provider Department 11/03/24 [...] [C76.0] Order(s):COMPREHENSIVE METABOLIC PANEL [SQCMP] Order #: [id number] FUTURE COMPLETE BLOOD COUNT AND DIFFERENTIAL [SQCBCDIF] Order #: [id number] FUTURE Prescriptions as of 11/03/2024 - amLODIPine [...] Status:Closed by RACQUEL COLE on 11/03/24 Normal [facility] CT CHEST W IVCONon CT CHEST W IVCON * * *Final Report* * * DATE OF EXAM: Nov 03 2024 8:41AM [facility] 0539 - CT CHEST W IVCON / [...] any questions regarding this interpretation, please call [phone]. If you are unable to reach us at the number above, please feel free to contact [facility] eRadiology at [phone]. [id number] Normal [facility] CT Chest W contrast Tristin IMPRESSION: [...] any questions regarding this interpretation, please call [phone]. If you are unable to reach us at the number above, please feel free to contact [facility] eRadiology at [phone]. DIVISION OF RADIOLOGY * * *Final Report* * * DATE OF EXAM: Nov 03 2024 8:41AM [facility] 0539 - CT CHEST W IVCON / [...] [facility] - 11/03/2024 * * *Final Report* * * DATE OF EXAM: Nov 03 2024 8:41AM [facility] 0539 - CT CHEST W IVCON / [...] any questions regarding this interpretation, please call [phone]. If you are unable to reach us at the number above, please feel free to contact [facility] eRadiology at [phone]. [facility] CT NECK SOFT TISSUE W IVCONo n 11-03-2024 CT NECK SOFT TISSUE W IVCON * * *Final Report* * * DATE OF EXAM: Nov 03 2024 8:41AM [facility] 0013 - CT NECK SOFT TISSUE W [...] evidence of abnormal lymph nodes. [email or web address] Transcribe Date/Time: Nov 03 2024 8:53A Dictated by: BENJAMIN AL MD This examination was interpreted and the report reviewed and electronically signed by: BENJAMIN AL MD on Nov 03 2024 9:01AM EST Thank you for allowing us to participate in the care of your patient. Should there be any questions regarding this interpretation, please call [phone]. If you are unable to reach us at the number above, please feel free to contact [facility] eRadiology at [phone]. [id number] Normal [facility] CT Neck W contrast Tristin 10-16 IMPRESSION: Primary: Category 1. Expected post-treatment changes in the neck without evidence of recurrent disease in the primary site. Neck: Category 1. No evidence of abnormal lymph nodes. [email or web address] Transcribe Date/Time: Nov 03 2024 8:53A Dictated by: BENJAMIN AL MD This examination was interpreted and the report reviewed and electronically signed by: BENJAMIN AL MD on Nov 03 2024 9:01AM EST Thank you for allowing us to participate in the care of your patient. Should there be any questions regarding this interpretation, please call [phone]. If you are unable to reach us at the number above, please feel free to contact [facility] eRadiology at [phone]. DIVISION OF RADIOLOGY * * *Final Report* * * DATE OF EXAM: Nov 03 2024 8:41AM [facility] 0013 - CT NECK SOFT TISSUE W [...] Other: Not applicable. DIVISION OF RADIOLOGY Provider, [facility] - 11/03/2024 * * *Final Report* * * DATE OF EXAM: Nov 03 2024 8:41AM [facility] 0013 - CT NECK SOFT TISSUE W [...] evidence of abnormal lymph nodes. [email or web address] Transcribe Date/Time: Nov 03 2024 8:53A Dictated by: BENJAMIN AL MD This examination was interpreted and the report reviewed and electronically signed by: BENJAMIN AL MD on Nov 03 2024 9:01AM EST Thank you for allowing us to participate in the care of your patient. Should there be any questions regarding this interpretation, please call [phone]. If you are unable to reach us at the number above, please feel free to contact [facility] eRadiology at [phone]. [facility] CT Neck W contrast IVOrdered By: Ccf Provider on 11-03-2024 [facility] Eosinophils/100 WBC Auto (Bl d)on 11-03-2024 Eosinophils/100 WBC (Bld) Automated eosinophil % [facility] Eosinophils/100 WBC (Bld) 2.7 % [facility] Erythrocyte distribution wid th Auto (RBC) [Ratio]on 11-03-2024 Erythrocyte distribution width (RBC) [Ratio] Erythrocyte distribution width [Ratio] by Automated count 11.5-15.0 [facility] Erythrocyte distribution width (RBC) [Ratio] 14.6 % 11.5-15.0 [facility] Hematocrit Auto (Bld) [Volum e fraction]on 11-03-2024 Hematocrit (Bld) [Volume fraction] Hematocrit [Volume Fraction] of Blood by Automated count 39.0-51.0 [facility] Hematocrit (Bld) [Volume fraction] 40.0 % 39.0-51.0 [facility] Hemoglobin [Mass/volume] in Bloodon 11-03-2024 Hemoglobin (Bld) [Mass/Vol] Hemoglobin [Mass/volume] in Blood 13.0-17.0 [facility] Hemoglobin (Bld) [Mass/Vol] 13.6 g/dL 13.0-17.0 [facility] Laboratory - Hematology and Cell countson 11-03-2024 Eosinophils (Bld) [#/Vol] 0.16 10*3/uL <0.46 [facility] Immature granulocytes/100 WBC (Bld) 0.2 % [facility] Leukocytes [#/volume] correc mone for nucleated erythrocytes in Blood by Automated counon 11-03-2024 WBC corrected for nucl RBC Auto (Bld) [#/Vol] Leukocytes [#/volume] corrected for nucleated erythrocytes in Blood by Automated coun 3.70-. [facility] WBC corrected for nucl RBC Auto (Bld) [#/Vol] 6.03 k/uL 3.70-11.00 [facility] Lymphocytes Auto (Bld) [#/Vo l]on 11-03-2024 Lymphocytes (Bld) [#/Vol] Lymphocytes [#/volume] in Blood by Automated count 1.00-4.00 [facility] Lymphocytes (Bld) [#/Vol] 2.73 10*3/uL 1.00-4.00 [facility] Lymphocytes/100 WBC Auto (Bl d)on 11-03-2024 Lymphocytes/100 WBC (Bld) Lymphocytes/100 leukocytes in Blood by Automated count [facility] Lymphocytes/100 WBC (Bld) 45.3 % [facility] MCH Auto (RBC) [Entitic mass ]on 11-03-2024 MCH (RBC) [Entitic mass] MCH [Entitic mass] by Automated count 26.0-34.0 [facility] MCH (RBC) [Entitic mass] 31.9 pg 26.0-34.0 [facility] MCHC Auto (RBC) [Mass/Vol]on 11-03-2024 MCHC (RBC) [Mass/Vol] MCHC [Mass/volume] by Automated count 30.5-36.0 [facility] MCHC (RBC) [Mass/Vol] 34.0 g/dL 30.5-36.0 [facility] MCV Auto (RBC) [Entitic vol] on 11-03-2024 MCV (RBC) [Entitic vol] MCV [Entitic volume] by Automated count 80.0-100.0 [facility] MCV (RBC) [Entitic vol] 93.9 fL 80.0-100.0 [facility] Monocytes Auto (Bld) [#/Vol] on 11-03-2024 Monocytes (Bld) [#/Vol] Automated blood monocyte count <0.87 [facility] Monocytes (Bld) [#/Vol] 0.40 10*3/uL <0.87 [facility] Monocytes/100 WBC Auto (Bld) on 11-03-2024 Monocytes/100 WBC (Bld) Automated monocyte % [facility] Monocytes/100 WBC (Bld) 6.6 % [facility] Neutrophils Auto (Bld) [#/Vo l]on 11-03-2024 Neutrophils (Bld) [#/Vol] Neutrophils [#/volume] in Blood by Automated count 1.45-7.50 [facility] Neutrophils (Bld) [#/Vol] 2.67 10*3/uL 1.45-7.50 [facility] Neutrophils/100 WBC Auto (Bl d)on 11-03-2024 Neutrophils/100 WBC (Bld) Automated neutrophil % [facility] Neutrophils/100 WBC (Bld) 44.2 % [facility] No Panel Informationon 11-03 Radiology Study observation (narrative) [facility] Immature Granulocyte # (Auto) <0.03 k/uL <0.10 [facility] Nucleated RBC Auto (Bld) [#/ Vol]on 11-03-2024 Nucleated RBC (Bld) [#/Vol] Nucleated erythrocytes [#/volume] in Blood by Automated count <0.01 [facility] Nucleated RBC (Bld) [#/Vol] 10*3/uL <0.01 [facility] Nucleated erythrocytes [Pres ence] in Blood by Automated counton 11-03-2024 Nucleated RBC Auto Ql (Bld) Nucleated erythrocytes [Presence] in Blood by Automated count [facility] Nucleated RBC Auto Ql (Bld) 0.0 /100{WBC} [facility] Platelet mean volume Auto (B ld) [Entitic vol]on 11-03-2024 Platelet mean volume (Bld) [Entitic vol] Platelet mean volume [Entitic volume] in Blood by Automated count 9.0-12.7 [facility] Platelet mean volume (Bld) [Entitic vol] 11.0 fL 9.0-12.7 [facility] Platelets Auto (Bld) [#/Vol] on 11-03-2024 Platelets (Bld) [#/Vol] Platelets [#/volume] in Blood by Automated count 150-400 [facility] Platelets (Bld) [#/Vol] 281 10*3/uL 150-400 [facility] RBC Auto (Bld) [#/Vol]on RBC (Bld) [#/Vol] Erythrocytes [#/volu me] in Blood by Automated count 4.20-6.00 [facility] RBC (Bld) [#/Vol] 4.26 10*6/uL 4.20-6.00 [facility] MR TRANSFER OF OUTSIDE FILMS on 10-21-2024 MR TRANSFER OF OUTSIDE FILMS Outside images for comparison or treatment purposes, not interpreted by Radiologists. Normal [facility] Study Interpretation of outs jeffrey studyon 10-21-2024 Outside images for comparison or treatment purposes, not interpreted by Radiologists. IMAGING X-ray reportOrdered By: Evie Eubanks on 10-10-2024 Study report [place] [address] XRay Report Signed Patient: Shantel Melendez MR#: [id number] : 1960 Acct:[id number] Age/Sex: 63 / M ADM Date: 5 Loc: XD Room: Type: [facility] CLI Attending Dr: Solomon Narayanan [...] Eubanks M.D. 10/10/2024 3:02 PM Dictation Location: [place] [address] Transcribed By: MARISA 10/10/24 1502 Dictated By: Dorothy Eubanks MD 10/10/24 1458 Signed By: 10/10/24 1505 [facility] Work Phone: XR cervical spine 2Von 10-10 XR cervical spine 2V [facility] [address] [place] [address] [place] [address] XRay Report Signed Patient: Shantel Melendez MR#: [id number] : 1960 Acct:[id number] Age/Sex: 63 / M ADM Date: 10/10/24 Loc: XD Room: Type: [facility] Attending Dr: Sloomon Narayanan PA-C Copies to: Solomon Narayanan PAC [...] Eubanks M.D. 10/10/2024 3:02 PM Dictation Location: [place] [address] Transcribed By: MARISA 10/10/24 150 Dictated By: Dorothy Eubanks MD 10/10/241454 Signed By: 10/10/24 1502 Normal [facility] Alanine aminotransferase [En zymatic activity/volume] in Serum or PlasmaOrdered By: Griselda Hastings on 10-07-2024 ALT [Catalytic activity/Vol] Alanine aminotransferase [Enzymatic activity/volume] in Serum or Plasma Low 7-52 [facility] Albumin [Mass/volume] in Ser um or Plasma by Bromocresol green (BCG) dye binding methoOrdered By: Griselda Hastings on 10-07-2024 Albumin BCG dye [Mass/Vol] Albumin [Mass/volume] in Serum or Plasma by Bromocresol green (BCG) dye binding metho Low 3.5-5.7 [facility] Alkaline phosphatase [Enzyma tic activity/volume] in Serum or PlasmaOrdered By: Griselda Hastings on 10-07-2024 ALP [Catalytic activity/Vol] Alkaline phosphatase [Enzymatic activity/volume] in Serum or Plasma 34-104 [facility] Aspartate aminotransferase [ Enzymatic activity/volume] in Serum or PlasmaOrdered By: Griselda Hastings on 10-07-2024 AST [Catalytic activity/Vol] Aspartate aminotransferase [Enzymatic activity/volume] in Serum or Plasma Low 13-39 [facility] Basophils Auto (Bld) [#/Vol] Ordered By: Griselda Hastings on 10-07-2024 Basophils (Bld) [#/Vol] Automated basophil count 0.0-0.2 [facility] Basophils/100 WBC Auto (Bld) Ordered By: Griselda Hastings on 10-07-2024 Basophils/100 WBC (Bld) Automated basophil % . [facility] Bilirubin.total [Mass/volume ] in Serum or PlasmaOrdered By: Griselda Hastings on 10-07-2024 Bilirubin [Mass/Vol] Bilirubin.total [Mass/volume] in Serum or Plasma 0.3-1.0 [facility] Calcium [Mass/volume] in Ser um or PlasmaOrdered By: Griselda Hastings on 10-07-2024 Calcium [Mass/Vol] Calcium [Mass/volume ] in Serum or Plasma 8.6-10.3 [facility] Carbon dioxide, total [Moles /volume] in Serum or PlasmaOrdered By: Griselda Hastings on 10-07-2024 CO2 [Moles/Vol] Carbon dioxide, tota l [Moles/volume] in Serum or Plasma 21.0-31.0 [facility] Chloride [Moles/volume] in S rica or PlasmaOrdered By: Griselda Hastings on 10-07-2024 Chloride [Moles/Vol] Chloride [Moles/vol ume] in Serum or Plasma 98-107 [facility] Cholesterol [Mass/volume] in Serum or PlasmaOrdered By: Griselda Hastings on 10-07-2024 Cholesterol [Mass/Vol] Cholesterol [Mass /volume] in Serum or Plasma High 140-200 [facility] Comment on above: Chol less than 200 m g/dl low riskChol 201-239 mg/dl borderline riskChol 240 mg/dl and greater high risk Cholesterol in HDL [Mass/vol ume] in Serum or PlasmaOrdered By: Griselda Hastings on 10-07-2024 Cholesterol in HDL [Mass/Vol] Serum or plasma high density lipoprotein (HDL) cholesterol measurement 23-92 [facility] Comment on above: HDL CHOL ATP-III CLA SSIFICATION Cardiovascular RiskHDL > or equal to 60 mg/dL LOWHDL < 40 mg/dL HIGH Cholesterol in LDL Calc [Mas s/Vol]Ordered By: Griselda Hastings on 10-07-2024 Cholesterol in LDL [Mass/Vol] Cholesterol in LDL [Mass/volume] in Serum or Plasma by calculation High 0-100 [facility] Comment on above: LDL ATP III CLASSIFI CATIONLDL less than 100 mg/dL OptimalLDL 100-129 mg/dL Near or above optimalLDL 130-159 mg/dL Borderline highLDL 160-189 mg/dL HighLDL greater than 189 mg/dL Very high Cholesterol in VLDL Calc [Ma ss/Vol]Ordered By: Griselda Hastings on 10-07-2024 Cholesterol in VLDL [Mass/Vol] Cholesterol in VLDL [Mass/volume] in Serum or Plasma by calculation [facility] Clostridioides difficile tox in B tcdB gene [Presence] in Stool by JER with probe deteOrdered By: Manisha Negron on 10-07-2024 C. difficile toxin B tcdB gene JER+probe Ql (Stl) Clostridioides difficile toxin B tcdB gene [Presence] in Stool by JER with probe dete Negative [facility] Comment on above: Testing performed by RT-PCR Clostridium Difficileon 09-17 Clostridium Difficile Negative Normal Negative [facility] Comment on above: Result Comment: Test ing performed by RT-PCR PERFORMED BY: [place] [address] PATHOLOGIST [employer] RAKEL LAZARO M.D. Performed By: #### C DT #### [address] Complete Blood Count Auto Di ffon 10-07-2024 Basophils (Bld) [#/Vol] 0.0 10*3/uL Normal 0.0-0.2 [facility] Comment on above: Result Comment: PERF ORMED BY: [place] [address] PATHOLOGIST [employer] RAKEL LAZARO M.D. Performed By: #### L IPASE, BMP, CBC, HEPATIC #### 08 [address] Basophils/100 WBC (Bld) 0.8 % Normal . [facility] Comment on above: Performed By: #### L IPASE, BMP, CBC, HEPATIC #### [address] Eosinophils (Bld) [#/Vol] 0.0 10*3/uL Normal 0.0-0.45 The [facility] Comment on above: Performed By: #### L IPASE, BMP, CBC, HEPATIC #### [address] Eosinophils/100 WBC (Bld) 0.8 % Normal . The [facility] Comment on above: Performed By: #### L IPASE, BMP, CBC, HEPATIC #### [address] Erythrocyte distribution width (RBC) [Ratio] 13.7 % Normal 12.0-14.8 The [facility] Comment on above: Performed By: #### L IPASE, BMP, CBC, HEPATIC #### [address] Hematocrit (Bld) [Volume fraction] 36.6 % Low 38.8-50.0 The [facility] Comment on above: Performed By: #### L IPASE, BMP, CBC, HEPATIC #### [address] Hemoglobin (Bld) [Mass/Vol] 12.8 g/dL Low 13.0-17.0 The [facility] Comment on above: Performed By: #### L IPASE, BMP, CBC, HEPATIC #### [address] Lymphocytes (Bld) [#/Vol] 1.7 10*3/uL Normal 1.00-4.8 The [facility] Comment on above: Performed By: #### L IPASE, BMP, CBC, HEPATIC #### [address] Lymphocytes/100 WBC (Bld) 31.1 % Normal . The [facility] Comment on above: Performed By: #### L IPASE, BMP, CBC, HEPATIC #### [address] MCH (RBC) [Entitic mass] 32.4 pg Normal 27.5-35.2 The [facility] Comment on above: Performed By: #### L IPASE, BMP, CBC, HEPATIC #### [address] MCV (RBC) [Entitic vol] 92.8 fL Normal 83.5-101 The [facility] Comment on above: Performed By: #### L IPASE, BMP, CBC, HEPATIC #### [address] Mean Corpuscular HGB Conc 34.9 g/dL Normal 32.5-35.6 The [facility] Comment on above: Performed By: #### L IPASE, BMP, CBC, HEPATIC #### [address] Monocytes (Bld) [#/Vol] 0.3 10*3/uL Normal 0.0-0.8 The [facility] Comment on above: Performed By: #### L IPASE, BMP, CBC, HEPATIC #### [address] Monocytes/100 WBC (Bld) 4.9 % Normal . The [facility] Comment on above: Performed By: #### L IPASE, BMP, CBC, HEPATIC #### [address] Neutrophils (Bld) [#/Vol] 3.4 10*3/uL Normal 1.8-7.7 The [facility] Comment on above: Performed By: #### L IPASE, BMP, CBC, HEPATIC #### [address] Neutrophils/100 WBC (Bld) 62.4 % Normal . The [facility] Comment on above: Performed By: #### L IPASE, BMP, CBC, HEPATIC #### [address] NRBC% 0.0 /100{WBC} Normal 0-0.5 The [facility] Comment on above: Performed By: #### L IPASE, BMP, CBC, HEPATIC #### [address] Platelet mean volume (Bld) [Entitic vol] 8.8 fL Normal 6.6-10.1 The [facility] Comment on above: Performed By: #### L IPASE, BMP, CBC, HEPATIC #### [address] Platelets (Bld) [#/Vol] 343 10*3/uL Normal 150-450 The [facility] Comment on above: Performed By: #### L IPASE, BMP, CBC, HEPATIC #### [place] [address] [place] RBC (Bld) [#/Vol] 3.94 10*6/uL Normal 3.90-5.60 The [facility] Comment on above: Performed By: #### L IPASE, BMP, CBC, HEPATIC #### [facility] [address] WBC (Bld) [#/Vol] 5.5 10*3/uL Normal 4.1-10.5 The [facility] Comment on above: Performed By: #### L IPASE, BMP, CBC, HEPATIC #### [facility] [address] Comprehensive Metabolic Pane chanel 10-07-2024 Albumin [Mass/Vol] 3.4 g/dL Low 3.5-5.7 The [facility] Comment on above: Performed By: #### L IPASE, BMP, CBC, HEPATIC #### [facility] [address] Albumin/Globulin [Mass ratio] 1.8 {ratio} Normal The [facility] Comment on above: Performed By: #### L IPASE, BMP, CBC, HEPATIC #### [facility] [address] ALP [Catalytic activity/Vol] 62 U/L Normal 34-104 The [facility] Comment on above: Performed By: #### L IPASE, BMP, CBC, HEPATIC #### [facility] [address] ALT [Catalytic activity/Vol] 6 U/L Low 7-52 The [facility] Comment on above: Performed By: #### L IPASE, BMP, CBC, HEPATIC #### [facility] [address] Anion gap [Moles/Vol] 9.7 mmol/L Normal 6.0-15.0 The [facility] Comment on above: Performed By: #### L IPASE, BMP, CBC, HEPATIC #### [facility] [address] AST [Catalytic activity/Vol] 8 U/L Low 13-39 The [facility] Comment on above: Performed By: #### L IPASE, BMP, CBC, HEPATIC #### [address] Bilirubin [Mass/Vol] 0.6 mg/dL Normal 0.3-1.0 The [facility] Comment on above: Performed By: #### L IPASE, BMP, CBC, HEPATIC #### [address] Calcium [Mass/Vol] 9.3 mg/dL Normal 8.6-10.3 The [facility] Comment on above: Performed By: #### L IPASE, BMP, CBC, HEPATIC #### [address] Chloride [Moles/Vol] 103 mmol/L Normal 98-107 The [facility] Comment on above: Performed By: #### L IPASE, BMP, CBC, HEPATIC #### [address] CO2 [Moles/Vol] 29.1 mmol/L Normal 21.0-31.0 The [facility] Comment on above: Performed By: #### L IPASE, BMP, CBC, HEPATIC #### [address] Creatinine [Mass/Vol] 0.74 mg/dL Normal 0.70-1.30 The [facility] Comment on above: Performed By: #### L IPASE, BMP, CBC, HEPATIC #### [address] GFR/1.73 sq M.predicted MDRD (S/P/Bld) [Vol rate/Area] mL/min/{1.73_m2} Normal The [facility] Comment on above: Performed By: #### L IPASE, BMP, CBC, HEPATIC #### [address] Globulin (S) [Mass/Vol] 1.9 g/dL Normal The [facility] Comment on above: Performed By: #### L IPASE, BMP, CBC, HEPATIC #### [address] Glucose [Mass/Vol] 84 mg/dL Normal 70-100 The [facility] Comment on above: Result Comment: [place] Glucose Reference Range is dependent on time and content of last meal. Glucose of more than 200 mg/dL in a nonstressed, ambulatory subject supports the diagnosis of Diabetes Mellitus. ADA recommended reference range Performed By: #### L IPASE, BMP, CBC, HEPATIC #### [address] Potassium [Moles/Vol] 4.8 mmol/L Normal 3.5-5.1 The [facility] Comment on above: Performed By: #### L IPASE, BMP, CBC, HEPATIC #### [address] Protein [Mass/Vol] 5.3 g/dL Low 6.4-8.9 The [facility] Comment on above: Performed By: #### L IPASE, BMP, CBC, HEPATIC #### [address] Sodium [Moles/Vol] 137 mmol/L Normal 136-145 The [facility] Comment on above: Performed By: #### L IPASE, BMP, CBC, HEPATIC #### [address] Urea nitrogen [Mass/Vol] 7 mg/dL Normal 7-25 The [facility] Comment on above: Performed By: #### L IPASE, BMP, CBC, HEPATIC #### [address] Creatinine [Mass/volume] in Serum or PlasmaOrdered By: Griselda Hastings on 10-07-2024 Creatinine [Mass/Vol] Creatinine [Mass/v olume] in Serum or Plasma 0.70-1.30 [facility] Eosinophils Auto (Bld) [#/Vo l]Ordered By: Griselda Hastings on 10-07-2024 Eosinophils (Bld) [#/Vol] Automated eosinophil count 0.0-0.45 [facility] Eosinophils/100 WBC Auto (Bl d)Ordered By: Griselda Hastings on 10-07-2024 Eosinophils/100 WBC (Bld) Automated eosinophil % . [facility] Erythrocyte distribution wid th Auto (RBC) [Ratio]Ordered By: Griselda Hastings on 10-07-2024 Erythrocyte distribution width (RBC) [Ratio] Erythrocyte distribution width [Ratio] by Automated count 12.0-14.8 [facility] Globulin Calc (S) [Mass/Vol] Ordered By: Griselda Hastings on 10-07-2024 Globulin (S) [Mass/Vol] Serum globulin measurement by calculation (mass/volume) [facility] Glucose [Mass/volume] in Ser um or PlasmaOrdered By: Griselda Hastings on 10-07-2024 Glucose [Mass/Vol] Glucose [Mass/volume ] in Serum or Plasma 70-100 [facility] Comment on above: ADA recommended refe rence rangeRandom Glucose Reference Range is dependent on time and content of last meal. Glucose of more than 200 mg/dL in a nonstressed, ambulatory subject supports the diagnosis of Diabetes Mellitus. Hematocrit Auto (Bld) [Volum e fraction]Ordered By: Griselda Hastings on 10-07-2024 Hematocrit (Bld) [Volume fraction] Hematocrit [Volume Fraction] of Blood by Automated count Low 38.8-50.0 [facility] Hemoglobin [Mass/volume] in BloodOrdered By: Griselda Hastings on 10-07-2024 Hemoglobin (Bld) [Mass/Vol] Hemoglobin [Mass/volume] in Blood Low 13.0-17.0 [facility] Leukocytes [#/volume] correc mone for nucleated erythrocytes in Blood by Automated counOrdered By: Griselda Hastings on 10-07-2024 WBC corrected for nucl RBC Auto (Bld) [#/Vol] Leukocytes [#/volume] corrected for nucleated erythrocytes in Blood by Automated coun 4.1-10.5 [facility] Lipid Panelon 10-07-2024 Cholesterol [Mass/Vol] 204 mg/dL High 140-200 Th [facility] Comment on above: Result Comment: Chol less than 200 mg/dl low risk Chol 201-239 mg/dl borderline risk Chol 240 mg/dl and greater high risk Performed By: #### L IPASE, BMP, CBC, HEPATIC #### [facility] [address] Cholesterol in HDL [Mass/Vol] 35 mg/dL Normal 23-92 The [facility] Comment on above: Result Comment: HDL CHOL ATP-III CLASSIFICATION Cardiovascular Risk HDL > or equal to 60 mg/dL LOW HDL < 40 mg/dL HIGH Performed By: #### L IPASE, BMP, CBC, HEPATIC #### [facility] [address] Cholesterol.total/Chol esterol in HDL [Mass ratio] 5.8 {ratio} Normal <5.0 The [facility] Comment on above: Performed By: #### L IPASE, BMP, CBC, HEPATIC #### [facility] [address] LDL Cholesterol,Calculated 145 mg/dL High 0-100 The [facility] Comment on above: Result Comment: LDL ATP III CLASSIFICATION LDL less than 100 mg/dL Optimal LDL 100-129 mg/dL Near or above optimal LDL 130-159 mg/dL Borderline high LDL 160-189 mg/dL High LDL greater than 189 mg/dL Very high Performed By: #### L IPASE, BMP, CBC, HEPATIC #### [facility] [address] [place] [id number] [facility] Triglyceride w/Reflex 118 mg/dL Normal 0-149 The [facility] Comment on above: Result Comment: TRIG ATP III CLASSIFICATION TRIG less than 150 mg/dL Normal TRIG 150-199 mg/dL Borderline high TRIG 200-500 mg/dL High TRIG greater than 500 mg/dL Very high Standard traceable to the Center for Disease Conrtrol and Prevention (CDC) test method. Performed By: #### L IPASE, BMP, CBC, HEPATIC #### [facility] [address] [place] [id number] [facility] VLDL CHOLESTEROL 23 mg/dL Normal The [facility] Comment on above: Performed By: #### L IPASE, BMP, CBC, HEPATIC #### [facility] [address] [place] [address] [place] Lymphocytes Auto (Bld) [#/Vo l]Ordered By: Griselda Hastings on 10-07-2024 Lymphocytes (Bld) [#/Vol] Lymphocytes [#/volume] in Blood by Automated count 1.00-4.8 [facility] Lymphocytes/100 WBC Auto (Bl d)Ordered By: Griselda Hastings on 10-07-2024 Lymphocytes/100 WBC (Bld) Lymphocytes/100 leukocytes in Blood by Automated count . [facility] MCH Auto (RBC) [Entitic mass ]Ordered By: Griselda Hastings on 10-07-2024 MCH (RBC) [Entitic mass] MCH [Entitic mass] by Automated count 27.5-35.2 [facility] MCHC Auto (RBC) [Mass/Vol]Or dered By: Griselda Hastings on 10-07-2024 MCHC (RBC) [Mass/Vol] MCHC [Mass/volume] by Automated count 32.5-35.6 [facility] MCV Auto (RBC) [Entitic vol] Ordered By: Griselda Hastings on 10-07-2024 MCV (RBC) [Entitic vol] MCV [Entitic volume] by Automated count 83.5-101 [facility] Monocytes Auto (Bld) [#/Vol] Ordered By: Griselda Hastings on 10-07-2024 Monocytes (Bld) [#/Vol] Automated blood monocyte count 0.0-0.8 [facility] Monocytes/100 WBC Auto (Bld) Ordered By: Griselda Hastings on 10-07-2024 Monocytes/100 WBC (Bld) Automated monocyte % . [facility] Neutrophils Auto (Bld) [#/Vo l]Ordered By: Griselda Hastings on 10-07-2024 Neutrophils (Bld) [#/Vol] Neutrophils [#/volume] in Blood by Automated count 1.8-7.7 [facility] Neutrophils/100 WBC Auto (Bl d)Ordered By: Griselda Hastings on 10-07-2024 Neutrophils/100 WBC (Bld) Automated neutrophil % . [facility] No Panel InformationOrdered By: Griselda Hastings on 10-07-2024 Estimated GFR (CKD-EPI) > 60.0 mL/Min [facility] Creatinine Clearance (Chem N/A [facility] Nucleated erythrocytes [Pres ence] in Blood by Automated countOrdered By: Griselda Hastings on 10-07-2024 Nucleated RBC Auto Ql (Bld) Nucleated erythrocytes [Presence] in Blood by Automated count 0-0.5 [facility] PSA Screen (Yearly Only)on 0 10-07-2024 PSA Screen (Yearly Only) 0.670 ng/mL Normal 0.000-4.00 0 [facility] Comment on above: Result Comment: Seri al tumor marker results determined by assays using different manufacturers or methods may not be comparable. [facility], [facility] Laboratory lens polisher and method: spigit DXI, CHEMILUMINESCENT IMMUNOASSAY. PERFORMED BY: [place] [address] PATHOLOGIST [employer]ER HELPER RAKEL LAZARO M.D. Performed By: #### L IPASE, BMP, CBC, HEPATIC #### [address] Platelet mean volume Auto (B ld) [Entitic vol]Ordered By: Griselda Hastings on 10-07-2024 Platelet mean volume (Bld) [Entitic vol] Platelet mean volume [Entitic volume] in Blood by Automated count 6.6-10.1 [facility] Platelets Auto (Bld) [#/Vol] Ordered By: Griselda Hastings on 10-07-2024 Platelets (Bld) [#/Vol] Platelets [#/volume] in Blood by Automated count 150-450 [facility] Potassium [Moles/volume] in Serum or PlasmaOrdered By: Griselda Hastings on 10-07-2024 Potassium [Moles/Vol] Potassium [Moles/v olume] in Serum or Plasma 3.5-5.1 [facility] Prostate specific Ag [Mass/v olume] in Serum or PlasmaOrdered By: Griselda Hastings on 10-07-2024 Prostate specific Ag [Mass/Vol] Prostate specific Ag [Mass/volume] in Serum or Plasma 0.000-4.00 0 [facility] Comment on above: Serial tumor marker results determined by assays using different manufacturers or methods may not be comparable.[facility], [facility] Laboratory lens polisher and method:KirondoEL DXI, CHEMILUMINESCENT IMMUNOASSAY. Protein [Mass/volume] in Ser um or PlasmaOrdered By: Griselda Hastings on 10-07-2024 Protein [Mass/Vol] Protein [Mass/volume ] in Serum or Plasma Low 6.4-8.9 [facility] RBC Auto (Bld) [#/Vol]Ordere d By: Griselda Hastings on 10-07-2024 RBC (Bld) [#/Vol] Erythrocytes [#/volu me] in Blood by Automated count 3.90-5.60 [facility] Serum or plasma albumin/glob ulin mass ratioOrdered By: Griselda Hastings on 10-07-2024 Albumin/Globulin [Mass ratio] Serum or plasma albumin/globulin mass ratio [facility] Serum or plasma anion gap de terminationOrdered By: Griselda Hastings on 10-07-2024 Anion gap [Moles/Vol] Serum or plasma an ion gap determination 6.0-15.0 [facility] Serum or plasma total choles terol/high density lipoprotein (HDL) cholesterol mass ratOrdered By: Griselda Hastings on 10-07-2024 Cholesterol.total/Chol esterol in HDL [Mass ratio] Serum or plasma total cholesterol/high density lipoprotein (HDL) cholesterol mass rat <5.0 [facility] Sodium [Moles/volume] in Ser um or PlasmaOrdered By: Griselda Hastings on 10-07-2024 Sodium [Moles/Vol] Sodium [Moles/volume ] in Serum or Plasma 136-145 [facility] Thyroid Stimulating Hormoneo n 10-07-2024 TSH Qn 1.03 m[IU]/L Normal 0.45-5.33 [facility] Comment on above: Result Comment: PERF ORMED BY: [facility] [address] [place] [address] PATHOLOGIST [employer]PER RAKEL LAZARO M.D. Performed By: #### L IPASE, BMP, CBC, HEPATIC #### [place] [address] [place] Thyrotropin [Units/volume] i n Serum or PlasmaOrdered By: Griselda Hastings on 10-07-2024 TSH Qn Thyrotropin [Units/volume] in Serum or Plasma 0.45-5.33 [facility] Triglyceride [Mass/volume] i n Serum or PlasmaOrdered By: Griselda Hastings on 10-07-2024 Triglyceride [Mass/Vol] Triglyceride [Mass/volume] in Serum or Plasma 0-149 [facility] Comment on above: TRIG ATP III CLASSIF ICATIONTRIG less than 150 mg/dL NormalTRIG 150-199 mg/dL Borderline highTRIG 200-500 mg/dL High TRIG greater than 500 mg/dL Very highStandard traceable to the Center for Disease Conrtrol and Prevention (CDC) test method. Urea nitrogen [Mass/volume] in Serum or PlasmaOrdered By: Griselda Hastings on 10-07-2024 Urea nitrogen [Mass/Vol] Urea nitrogen [Mass/volume] in Serum or Plasma 01-09 [facility] WBC Auto (Bld) [#/Vol]Ordere d By: Griselda Hastings on 10-07-2024 WBC (Bld) [#/Vol] Leukocytes [#/volume ] in Blood by Automated count 4.1-10.5 [facility] Alanine aminotransferase [En zymatic activity/volume] in Serum or PlasmaOrdered By: PROVIDER TEMP on 10-06-2024 ALT [Catalytic activity/Vol] Alanine aminotransferase [Enzymatic activity/volume] in Serum or Plasma [facility] Albumin [Mass/volume] in Ser um or Plasma by Bromocresol green (BCG) dye binding methoOrdered By: PROVIDER TEMP on 10-06-2024 Albumin BCG dye [Mass/Vol] Albumin [Mass/volume] in Serum or Plasma by Bromocresol green (BCG) dye binding metho 3.5-5.7 [facility] Alkaline phosphatase [Enzyma tic activity/volume] in Serum or PlasmaOrdered By: PROVIDER TEMP on 10-06-2024 ALP [Catalytic activity/Vol] Alkaline phosphatase [Enzymatic activity/volume] in Serum or Plasma 34-104 [facility] Appearance of UrineOrdered B y: Manisha Negron on 10-06-2024 Appearance (U) Urine appearance [facility] Aspartate aminotransferase [ Enzymatic activity/volume] in Serum or PlasmaOrdered By: PROVIDER TEMP on 10-06-2024 AST [Catalytic activity/Vol] Aspartate aminotransferase [Enzymatic activity/volume] in Serum or Plasma Low 13-39 [facility] Bacteria [Presence] in Urine by AutomatedOrdered By: Manisha Negron on 10-06-2024 Bacteria Auto Ql (U) Bacteria [Presence] in Urine by Automated None Seen [facility] Basic Metabolic Panelon 09-17 Anion gap [Moles/Vol] 8.5 mmol/L Normal 6.0-15.0 The [facility] Comment on above: Performed By: #### L IPASE, BMP, CBC, HEPATIC #### [facility] [address] [place] [address] [place] Calcium [Mass/Vol] 9.5 mg/dL Normal 8.6-10.3 The [facility] Comment on above: Performed By: #### L IPASE, BMP, CBC, HEPATIC #### [facility] [address] [place] [address] [place] Chloride [Moles/Vol] 104 mmol/L Normal 98-107 The [facility] Comment on above: Performed By: #### L IPASE, BMP, CBC, HEPATIC #### [facility] [address] [place] [address] [place] CO2 [Moles/Vol] 28.3 mmol/L Normal 21.0-31.0 The [facility] Comment on above: Performed By: #### L IPASE, BMP, CBC, HEPATIC #### [facility] [address] [place] [address] [place] Creatinine [Mass/Vol] 0.82 mg/dL Normal 0.70-1.30 The [facility] Comment on above: Performed By: #### L IPASE, BMP, CBC, HEPATIC #### [facility] [address] [place] [address] [place] Creatinine Clr Calc Pharmacy 91.52 Normal The [facility] Comment on above: Performed By: #### L IPASE, BMP, CBC, HEPATIC #### [facility] [address] [place] [address] [place] GFR/1.73 sq M.predicted MDRD (S/P/Bld) [Vol rate/Area] mL/min/{1.73_m2} Normal The [facility] Comment on above: Performed By: #### L IPASE, BMP, CBC, HEPATIC #### [facility] [address] [place] [address] [place] Glucose [Mass/Vol] 86 mg/dL Normal 70-100 [facility] Comment on above: Result Comment: [facility] Glucose Reference Range is dependent on time and content of last meal. Glucose of more than 200 mg/dL in a nonstressed, ambulatory subject supports the diagnosis of Diabetes Mellitus. ADA recommended reference range Performed By: #### L IPASE, BMP, CBC, HEPATIC #### [facility] [address] Potassium [Moles/Vol] 4.8 mmol/L Normal 3.5-5.1 The [facility] Comment on above: Performed By: #### L IPASE, BMP, CBC, HEPATIC #### [facility] [address] Sodium [Moles/Vol] 136 mmol/L Normal 136-145 [facility] Comment on above: Performed By: #### L IPASE, BMP, CBC, HEPATIC #### [facility] [address] Urea nitrogen [Mass/Vol] 9 mg/dL Normal 7-25 The [facility] Comment on above: Performed By: #### L IPASE, BMP, CBC, HEPATIC #### [facility] [address] Basophils Auto (Bld) [#/Vol] Ordered By: PROVIDER TEMP on 10-06-2024 Basophils (Bld) [#/Vol] Automated basophil count 0.0-0.2 [facility] Basophils/100 WBC Auto (Bld) Ordered By: PROVIDER TEMP on 10-06-2024 Basophils/100 WBC (Bld) Automated basophil % . [facility] Bilirubin Test strip Ql (U)O rdered By: Manisha Negron on 10-06-2024 Bilirubin Ql (U) Bilirubin.total [Presence] in Urine by Test strip Negative [facility] Bilirubin.direct [Mass/volum e] in Serum or PlasmaOrdered By: PROVIDER TEMP on 10-06-2024 Bilirubin.direct [Mass/Vol] Bilirubin.direct [Mass/volume] in Serum or Plasma 0.03-0.18 [facility] Bilirubin.total [Mass/volume ] in Serum or PlasmaOrdered By: PROVIDER TEMP on 10-06-2024 Bilirubin [Mass/Vol] Bilirubin.total [Mass/volume] in Serum or Plasma 0.3-1.[address] [facility] [address] abdomen pelvis w conon CT abdomen pelvis w con [facility] [place] [address] [place] [address] CT Scan Report Signed Patient: Shantel Melendez MR#: [id number] : 1960 Acct:[id number] Age/Sex: 63 / M ADM Date: 10/06/24 Loc: ER Room: Type: [facility] ER Attending Dr: Copies to: [...] Dorothy Eubanks M.D.10/06/2024 4:08 PM Dictation Location: [place] [address] Transcribed By: [facility] [facility] 10/06/24 1608 Dictated By: Dorothy Eubanks MD 10/06/24 1556 Signed By: 10/06/24 1608 Normal [facility] soft tissue neck w conon 10-06-2024 CT soft tissue neck w con [facility] [address] [place] [address] CT Scan Report Signed Patient: Shantel Melendez MR#: [id number] : 1960 Acct:[id number] Age/Sex: 63 / M ADM Date: 10/06/24 Loc: ER Room: Type: [facility] ER Attending Dr: Copies to: [...] Dorothy Eubanks M.D.10/06/2024 3:56 PM Dictation Location: [place] [address] Transcribed By: MARISA 10/06/24 1556 Dictated By: Dorothy Eubanks MD 10/06/24 155 Signed By: 10/06/24 155 Normal [facility] Calcium [Mass/volume] in Ser um or PlasmaOrdered By: PROVIDER TEMP on 10-06-2024 Calcium [Mass/Vol] Calcium [Mass/volume ] in Serum or Plasma 8.6-10.3 [facility] Carbon dioxide, total [Moles /volume] in Serum or PlasmaOrdered By: PROVIDER TEMP on 10-06-2024 CO2 [Moles/Vol] Carbon dioxide, tota l [Moles/volume] in Serum or Plasma 21.0-31.0 [facility] Chloride [Moles/volume] in [place] or PlasmaOrdered By: PROVIDER TEMP on 10-06-2024 Chloride [Moles/Vol] Chloride [Moles/vol ume] in Serum or Plasma 98-107 [facility] Color Auto (U)Ordered By: Braeden Negron on 10-06-2024 Color (U) Color of Urine by Auto Yellow [facility] Complete Blood Count Auto Di ffon 10-06-2024 Basophils (Bld) [#/Vol] 0.1 10*3/uL Normal 0.0-0.2 [facility] Comment on above: Result Comment: PERF ORMED BY: [facility] [address] [place] [address] PATHOLOGIST [employer] RAKEL LAZARO M.D. Performed By: #### L IPASE, BMP, CBC, HEPATIC #### [address] Basophils/100 WBC (Bld) 1.1 % Normal . [facility] Comment on above: Performed By: #### L IPASE, BMP, CBC, HEPATIC #### [address] Eosinophils (Bld) [#/Vol] 0.1 10*3/uL Normal 0.0-0.45 [facility] Comment on above: Performed By: #### L IPASE, BMP, CBC, HEPATIC #### [address] Eosinophils/100 WBC (Bld) 0.9 % Normal . [facility] Comment on above: Performed By: #### L IPASE, BMP, CBC, HEPATIC #### [address] Erythrocyte distribution width (RBC) [Ratio] 13.7 % Normal 12.0-14.8 [facility] Comment on above: Performed By: #### L IPASE, BMP, CBC, HEPATIC #### [address] Hematocrit (Bld) [Volume fraction] 37.0 % Low 38.8-50.0 [facility] Comment on above: Performed By: #### L IPASE, BMP, CBC, HEPATIC #### [address] Hemoglobin (Bld) [Mass/Vol] 12.8 g/dL Low 13.0-17.0 [facility] Comment on above: Performed By: #### L IPASE, BMP, CBC, HEPATIC #### [address] Lymphocytes (Bld) [#/Vol] 2.0 10*3/uL Normal 1.00-4.8 [facility] Comment on above: Performed By: #### L IPASE, BMP, CBC, HEPATIC #### [address] Lymphocytes/100 WBC (Bld) 28.2 % Normal . [facility] Comment on above: Performed By: #### L IPASE, BMP, CBC, HEPATIC #### [address] MCH (RBC) [Entitic mass] 32.0 pg Normal 27.5-35.2 [facility] Comment on above: Performed By: #### L IPASE, BMP, CBC, HEPATIC #### [address] MCV (RBC) [Entitic vol] 92.6 fL Normal 83.5-101 [facility] Comment on above: Performed By: #### L IPASE, BMP, CBC, HEPATIC #### [address] Mean Corpuscular HGB Conc 34.6 g/dL Normal 32.5-35.6 [facility] Comment on above: Performed By: #### L IPASE, BMP, CBC, HEPATIC #### [place] [address] [place] Monocytes (Bld) [#/Vol] 0.4 10*3/uL Normal 0.0-0.8 [facility] Comment on above: Performed By: #### L IPASE, BMP, CBC, HEPATIC #### [place] [address] [place] Monocytes/100 WBC (Bld) 17.04 % Normal 0.00-20.00 [facility] Comment on above: Performed By: #### L IPASE, BMP, CBC, HEPATIC #### [place] [address] [place] Monocytes/100 WBC (Bld) 5.4 % Normal . [facility] Comment on above: Performed By: #### L IPASE, BMP, CBC, HEPATIC #### [place] [address] [place] Neutrophils (Bld) [#/Vol] 4.7 10*3/uL Normal 1.8-7.7 [facility] Comment on above: Performed By: #### L IPASE, BMP, CBC, HEPATIC #### [facility] [address] Neutrophils/100 WBC (Bld) 64.4 % Normal . [facility] Comment on above: Performed By: #### L IPASE, BMP, CBC, HEPATIC #### [facility] [address] NRBC% 0.1 /100{WBC} Normal 0-0.5 [facility] Comment on above: Performed By: #### L IPASE, BMP, CBC, HEPATIC #### [facility] [address] Platelet mean volume (Bld) [Entitic vol] 8.4 fL Normal 6.6-10.1 [facility] Comment on above: Performed By: #### L IPASE, BMP, CBC, HEPATIC #### [facility] [address] Platelets (Bld) [#/Vol] 357 10*3/uL Normal 150-450 [facility] Comment on above: Performed By: #### L IPASE, BMP, CBC, HEPATIC #### [address] RBC (Bld) [#/Vol] 3.99 10*6/uL Normal 3.90-5.60 [facility] Comment on above: Performed By: #### L IPASE, BMP, CBC, HEPATIC #### [address] WBC (Bld) [#/Vol] 7.2 10*3/uL Normal 4.1-10.5 [facility] Comment on above: Performed By: #### L IPASE, BMP, CBC, HEPATIC #### [address] Creatinine [Mass/volume] in Serum or PlasmaOrdered By: PROVIDER TEMP on 10-06-2024 Creatinine [Mass/Vol] Creatinine [Mass/v olume] in Serum or Plasma 0.70-1.30 [facility] Dipstick and Microscopicon 0 10-06-2024 Appearance (U) Clear Normal Clear [facility] Comment on above: Order Comment: Name Collection Type:: Clean-Voided Midstream Performed By: #### L IPASE, BMP, CBC, HEPATIC #### [facility] [address] Bacteria,Urine None Seen Normal None Seen [facility] Comment on above: Order Comment: Name Collection Type:: Clean-Voided Midstream Performed By: #### L IPASE, BMP, CBC, HEPATIC #### [address] Bilirubin,Urine Negative Normal Negative [facility] Comment on above: Order Comment: Name Collection Type:: Clean-Voided Midstream Performed By: #### L IPASE, BMP, CBC, HEPATIC #### [address] Color (U) Yellow Normal Yellow [facility] Comment on above: Order Comment: Name Collection Type:: Clean-Voided Midstream Performed By: #### L IPASE, BMP, CBC, HEPATIC #### [address] Glucose Ql (U) Normal Normal Normal [facility] Comment on above: Order Comment: Name Collection Type:: Clean-Voided Midstream Performed By: #### L IPASE, BMP, CBC, HEPATIC #### [address] Hyaline Casts,Urine None Normal 0-8 [facility] Comment on above: Order Comment: Name Collection Type:: Clean-Voided Midstream Performed By: #### L IPASE, BMP, CBC, HEPATIC #### [address] Ketones Ql (U) Negative Normal Negative [facility] Comment on above: Order Comment: Name Collection Type:: Clean-Voided Midstream Performed By: #### L IPASE, BMP, CBC, HEPATIC #### [facility] [address] [place] [address] [place] Leukocyte esterase Test strip Ql (U) Negative Normal Negative [facility] Comment on above: Order Comment: Name Collection Type:: Clean-Voided Midstream Performed By: #### L IPASE, BMP, CBC, HEPATIC #### [facility] [address] [place] [address] [place] Mucus,Urine Rare Normal [facility] Comment on above: Order Comment: Name Collection Type:: Clean-Voided Midstream Result Comment: PERF ORMED BY: [place] [address] PATHOLOGIST [employer]PER RAKEL LAZARO M.D. Performed By: #### L IPASE, BMP, CBC, HEPATIC #### [place] [address] [place] Nitrite,Urine Negative Normal Negative [facility] Comment on above: Order Comment: Name Collection Type:: Clean-Voided Midstream Performed By: #### L IPASE, BMP, CBC, HEPATIC #### [facility] [address] [place] [address] [place] Occult Blood,Urine Trace High Negative [facility] Comment on above: Order Comment: Name Collection Type:: Clean-Voided Midstream Result Comment: PERF ORMED BY: [place] [address] PATHOLOGIST [employer]PER RAKEL LAZARO M.D. Performed By: #### L IPASE, BMP, CBC, HEPATIC #### [facility] [address] [place] [address] [place] pH (U) 5.5 [pH] Normal 5.0-9.0 [facility] Comment on above: Order Comment: Name Collection Type:: Clean-Voided Midstream Performed By: #### L IPASE, BMP, CBC, HEPATIC #### [facility] [address] [place] [address] [place] Protein,Urine Negative Normal Negative [facility] Comment on above: Order Comment: Name Collection Type:: Clean-Voided Midstream Performed By: #### L IPASE, BMP, CBC, HEPATIC #### [address] RBC,Urine 1-2 Normal 0-4 [facility] Comment on above: Order Comment: Name Collection Type:: Clean-Voided Midstream Performed By: #### L IPASE, BMP, CBC, HEPATIC #### [address] Specificy [place],Urine >1.050 High 1.001-1.03 0 [facility] Comment on above: Order Comment: Name Collection Type:: Clean-Voided Midstream Performed By: #### L IPASE, BMP, CBC, HEPATIC #### [address] Squamous Epithelial Cell,Urine 1-2 Normal 0-2 [facility] Comment on above: Order Comment: Name Collection Type:: Clean-Voided Midstream Performed By: #### L IPASE, BMP, CBC, HEPATIC #### [address] Urobilinogen,Urine Normal Normal Normal [facility] Comment on above: Order Comment: Name Collection Type:: Clean-Voided Midstream Performed By: #### L IPASE, BMP, CBC, HEPATIC #### [address] WBC,Urine 1-2 Normal 0-4 [facility] Comment on above: Order Comment: Name Collection Type:: Clean-Voided Midstream Performed By: #### L IPASE, BMP, CBC, HEPATIC #### [address] ECG 12 lead ECGon 10-06-2024 ECG 12 lead ECG [facility] [place] [address] [place] [address] Electrocardiograph Report Signed Patient: Shantel Melendez MR#: [id number] : 1960 Acct:[id number] Age/Sex: 63 / M ADM Date: 10/06/24 Loc: ER Room: Type: [facility] ER Attending Dr: Ordering Provider: [...] now present Confirmed by Duke Kaufman DO ([id number]) on 10/06/2024 7:36:01 PM Referred By: Electronically Signed By: Duke Kaufman DO Transcribed By: MUS Signed By Duke Kaufman DO 1935 Normal [facility] Eosinophils Auto (Bld) [#/Vo l]Ordered By: PROVIDER TEMP on 10-06-2024 Eosinophils (Bld) [#/Vol] Automated eosinophil count 0.0-0.45 [facility] Eosinophils/100 WBC Auto (Bl d)Ordered By: PROVIDER TEMP on 10-06-2024 Eosinophils/100 WBC (Bld) Automated eosinophil % . [facility] Epithelial cells.squamous [# /area] in Urine sediment by Automated countOrdered By: Manisha Negron on 10-06-2024 Epithelial cells.squamous Auto (Urine sed) [#/Area] Epithelial cells.squamous [#/area] in Urine sediment by Automated count 0-2 [facility] Erythrocyte distribution wid th Auto (RBC) [Ratio]Ordered By: PROVIDER TEMP on 10-06-2024 Erythrocyte distribution width (RBC) [Ratio] Erythrocyte distribution width [Ratio] by Automated count 12.0-14.8 [facility] Erythrocytes [#/area] in Uri ne sediment by Automated countOrdered By: Manisha Negron on 10-06-2024 RBC Auto (Urine sed) [#/Area] Erythrocytes [#/area] in Urine sediment by Automated count 0-4 [facility] Globulin Calc (S) [Mass/Vol] Ordered By: PROVIDER TEMP on 10-06-2024 Globulin (S) [Mass/Vol] Serum globulin measurement by calculation (mass/volume) [facility] Glucose [Mass/volume] in Ser um or PlasmaOrdered By: PROVIDER TEMP on 10-06-2024 Glucose [Mass/Vol] Glucose [Mass/volume ] in Serum or Plasma 70-100 [facility] Comment on above: ADA recommended refe rence rangeRandom Glucose Reference Range is dependent on time and content of last meal. Glucose of more than 200 mg/dL in a nonstressed, ambulatory subject supports the diagnosis of Diabetes Mellitus. Glucose [Mass/volume] in Uri ne by Test stripOrdered By: Manisha Negron on 10-06-2024 Glucose Test strip (U) [Mass/Vol] Glucose [Mass/volume] in Urine by Test strip Normal [facility] Hematocrit Auto (Bld) [Volum e fraction]Ordered By: PROVIDER TEMP on 10-06-2024 Hematocrit (Bld) [Volume fraction] Hematocrit [Volume Fraction] of Blood by Automated count Low 38.8-50.0 [facility] Hemoglobin Test strip Ql (U) Ordered By: Manisha Negron on 10-06-2024 Hemoglobin Ql (U) Hemoglobin [Presence ] in Urine by Test strip High Negative [facility] Hemoglobin [Mass/volume] in BloodOrdered By: PROVIDER TEMP on 10-06-2024 Hemoglobin (Bld) [Mass/Vol] Hemoglobin [Mass/volume] in Blood Low 13.0-17.0 [facility] Hepatic Panelon 10-06-2024 Albumin [Mass/Vol] 3.6 g/dL Normal 3.5-5.7 [facility] Comment on above: Performed By: #### L IPASE, BMP, CBC, HEPATIC #### [facility] [address] [place] [address] [place] Albumin/Globulin [Mass ratio] 1.4 {ratio} Normal [facility] Comment on above: Performed By: #### L IPASE, BMP, CBC, HEPATIC #### [facility] [address] [place] [id number] [place] ALP [Catalytic activity/Vol] 63 U/L Normal 34-104 [facility] Comment on above: Performed By: #### L IPASE, BMP, CBC, HEPATIC #### [facility] [address] [place] [address] [place] ALT [Catalytic activity/Vol] 7 U/L Normal 7-52 [facility] Comment on above: Performed By: #### L IPASE, BMP, CBC, HEPATIC #### [facility] [address] [place] [address] [place] AST [Catalytic activity/Vol] 8 U/L Low 13-39 [facility] Comment on above: Performed By: #### L IPASE, BMP, CBC, HEPATIC #### [facility] [address] [place] [address] [place] Bilirubin [Mass/Vol] 0.6 mg/dL Normal 0.3-1.0 [facility] Comment on above: Performed By: #### L IPASE, BMP, CBC, HEPATIC #### [facility] [address] Bilirubin,Indirect 0.5 mg/dL Normal [facility] Comment on above: Performed By: #### L IPASE, BMP, CBC, HEPATIC #### [facility] [address] [place] [address] [place] Bilirubin.indirect [Mass/Vol] 0.10 mg/dL Normal 0.03-0.18 [facility] Comment on above: Performed By: #### L IPASE, BMP, CBC, HEPATIC #### [facility] [address] [place] [address] [place] Globulin (S) [Mass/Vol] 2.5 g/dL Normal [facility] Comment on above: Performed By: #### L IPASE, BMP, CBC, HEPATIC #### [facility] [address] [place] [address] [place] Protein [Mass/Vol] 6.1 g/dL Low 6.4-8.9 [facility] Comment on above: Performed By: #### L IPASE, BMP, CBC, HEPATIC #### [facility] [address] [place] [address] [place] Hyaline casts [#/area] in Ur ine sediment by Automated countOrdered By: Manisha Negron on 10-06-2024 Hyaline casts Auto (Urine sed) [#/Area] Hyaline casts [#/area] in Urine sediment by Automated count 0-8 [facility] Ketones Test strip Ql (U)Ord ered By: Manisha Negron on 10-06-2024 Ketones Ql (U) Ketones [Presence] i n Urine by Test strip Negative [facility] Leukocyte esterase [Presence ] in Urine by Test stripOrdered By: Manisha Negron on 10-06-2024 Leukocyte esterase Test strip Ql (U) Leukocyte esterase [Presence] in Urine by Test strip Negative [facility] Leukocytes [#/area] in Urine sediment by Automated countOrdered By: Manisha Negron on 10-06-2024 WBC Auto (Urine sed) [#/Area] Leukocytes [#/area] in Urine sediment by Automated count 0-4 [facility] Leukocytes [#/volume] correc mone for nucleated erythrocytes in Blood by Automated counOrdered By: PROVIDER TEMP on 10-06-2024 WBC corrected for nucl RBC Auto (Bld) [#/Vol] Leukocytes [#/volume] corrected for nucleated erythrocytes in Blood by Automated coun 4.1-10.5 [facility] Lipaseon 10-06-2024 Lipase [Catalytic activity/Vol] 11.0 U/L Normal 11.0-82.0 [facility] Comment on above: Result Comment: PERF ORMED BY: [place] [address] PATHOLOGIST [employer] HELPER RAKEL LAZARO M.D. Performed By: #### L IPASE, BMP, CBC, HEPATIC #### [place] [address] [place] Lipase [Enzymatic activity/v olume] in Serum or PlasmaOrdered By: PROVIDER TEMP on 10-06-2024 Lipase [Catalytic activity/Vol] Lipase [Enzymatic activity/volume] in Serum or Plasma 11.0-82.0 [facility] Lymphocytes Auto (Bld) [#/Vo l]Ordered By: PROVIDER TEMP on 10-06-2024 Lymphocytes (Bld) [#/Vol] Lymphocytes [#/volume] in Blood by Automated count 1.00-4.8 [facility] Lymphocytes/100 WBC Auto (Bl d)Ordered By: PROVIDER TEMP on 10-06-2024 Lymphocytes/100 WBC (Bld) Lymphocytes/100 leukocytes in Blood by Automated count . [facility] MCH Auto (RBC) [Entitic mass ]Ordered By: PROVIDER TEMP on 10-06-2024 MCH (RBC) [Entitic mass] MCH [Entitic mass] by Automated count 27.5-35.2 [facility] MCHC Auto (RBC) [Mass/Vol]Or dered By: PROVIDER TEMP on 10-06-2024 MCHC (RBC) [Mass/Vol] MCHC [Mass/volume] by Automated count 32.5-35.6 [facility] MCV Auto (RBC) [Entitic vol] Ordered By: PROVIDER TEMP on 10-06-2024 MCV (RBC) [Entitic vol] MCV [Entitic volume] by Automated count 83.5-101 [facility] Monocyte distribution width [Entitic volume] in Blood by AutomatedOrdered By: PROVIDER TEMP on 10-06-2024 Monocyte distribution width Auto (Bld) [Entitic vol] Monocyte distribution width [Entitic volume] in Blood by Automated 0.00-20.00 [facility] Monocytes Auto (Bld) [#/Vol] Ordered By: PROVIDER TEMP on 10-06-2024 Monocytes (Bld) [#/Vol] Automated blood monocyte count 0.0-0.8 [facility] Monocytes/100 WBC Auto (Bld) Ordered By: PROVIDER TEMP on 10-06-2024 Monocytes/100 WBC (Bld) Automated monocyte % . [facility] Mucus [Presence] in Urine by AutomatedOrdered By: Manisha Negron on 10-06-2024 Mucus Auto Ql (U) Mucus [Presence] in Urine by Automated [facility] Neutrophils Auto (Bld) [#/Vo l]Ordered By: PROVIDER TEMP on 10-06-2024 Neutrophils (Bld) [#/Vol] Neutrophils [#/volume] in Blood by Automated count 1.8-7.7 [facility] Neutrophils/100 WBC Auto (Bl d)Ordered By: PROVIDER TEMP on 10-06-2024 Neutrophils/100 WBC (Bld) Automated neutrophil % . [facility] Nitrite Test strip Ql (U)Ord ered By: Manisha Negron on 10-06-2024 Nitrite Ql (U) Nitrite [Presence] i n Urine by Test strip Negative [facility] No Panel InformationOrdered By: PROVIDER TEMP on 10-06-2024 Estimated GFR (CKD-EPI) > 60.0 mL/Min [facility] Creatinine Clearance (Chem 91.52 [facility] Nucleated erythrocytes [Pres ence] in Blood by Automated countOrdered By: PROVIDER TEMP on 10-06-2024 Nucleated RBC Auto Ql (Bld) Nucleated erythrocytes [Presence] in Blood by Automated count 0-0.5 [facility] Platelet mean volume Auto (B ld) [Entitic vol]Ordered By: PROVIDER TEMP on 10-06-2024 Platelet mean volume (Bld) [Entitic vol] Platelet mean volume [Entitic volume] in Blood by Automated count 6.6-10.1 [facility] Platelets Auto (Bld) [#/Vol] Ordered By: PROVIDER TEMP on 10-06-2024 Platelets (Bld) [#/Vol] Platelets [#/volume] in Blood by Automated count 150-450 [facility] Potassium [Moles/volume] in Serum or PlasmaOrdered By: PROVIDER TEMP on 10-06-2024 Potassium [Moles/Vol] Potassium [Moles/v olume] in Serum or Plasma 3.5-5.1 [facility] Protein Test strip (U) [Mass /Vol]Ordered By: Manisha Negron on 10-06-2024 Protein (U) [Mass/Vol] Protein [Mass/vol ume] in Urine by Test strip Negative [facility] Protein [Mass/volume] in Ser um or PlasmaOrdered By: PROVIDER TEMP on 10-06-2024 Protein [Mass/Vol] Protein [Mass/volume ] in Serum or Plasma Low 6.4-8.9 [facility] RBC Auto (Bld) [#/Vol]Ordere d By: PROVIDER TEMP on 10-06-2024 RBC (Bld) [#/Vol] Erythrocytes [#/volu me] in Blood by Automated count 3.90-5.60 [facility] Serum or plasma albumin/glob ulin mass ratioOrdered By: PROVIDER TEMP on 10-06-2024 Albumin/Globulin [Mass ratio] Serum or plasma albumin/globulin mass ratio [facility] Serum or plasma anion gap de terminationOrdered By: PROVIDER TEMP on 10-06-2024 Anion gap [Moles/Vol] Serum or plasma an ion gap determination 6.0-15.0 [facility] Serum or plasma non-glucuron idated bilirubin measurement (mass/volume)Ordered By: PROVIDER TEMP on 10-06-2024 Bilirubin.indirect [Mass/Vol] Serum or plasma non-glucuronidated bilirubin measurement (mass/volume) [facility] Sodium [Moles/volume] in Ser um or PlasmaOrdered By: PROVIDER TEMP on 10-06-2024 Sodium [Moles/Vol] Sodium [Moles/volume ] in Serum or Plasma 136-145 [facility] Specific gravity Test strip (U) [Rel density]Ordered By: Manisha Negron on 10-06-2024 Specific gravity (U) [Rel density] Specific gravity of Urine by Test strip High 1.001-1.03 0 [facility] Urea nitrogen [Mass/volume] in Serum or PlasmaOrdered By: PROVIDER TEMP on 10-06-2024 Urea nitrogen [Mass/Vol] Urea nitrogen [Mass/volume] in Serum or Plasma 7-25 [facility] Urobilinogen Test strip (U) [Mass/Vol]Ordered By: Manisha Negron on 10-06-2024 Urobilinogen (U) [Mass/Vol] Urobilinogen [Mass/volume] in Urine by Test strip Normal [facility] WBC Auto (Bld) [#/Vol]Ordere d By: PROVIDER TEMP on 10-06-2024 WBC (Bld) [#/Vol] Leukocytes [#/volume ] in Blood by Automated count 4.1-10.5 [facility] pH Test strip (U)Ordered By: Manisha Negron on 10-06-2024 pH (U) pH of Urine by Test strip 5.0-9.0 [facility] B-Type Natriuretic Peptideon 09-20-2024 Natriuretic peptide B (Bld) [Mass/Vol] 43.0 pg/mL Normal 5-100 [facility] Comment on above: Result Comment: PERF ORMED BY: [place] [address] PATHOLOGIST [employer] HELPER RAKEL LAZARO M.D. Performed By: #### H S TROP #### [address] Basic Metabolic Panelon 04-0 Anion gap [Moles/Vol] 11.2 mmol/L Normal 6.0-15.0 [facility] Comment on above: Performed By: #### C BC, BNP, BMP, HS TROP #### [address] Calcium [Mass/Vol] 9.3 mg/dL Normal 8.6-10.3 [facility] Comment on above: Performed By: #### C BC, BNP, BMP, HS TROP #### [address] Chloride [Moles/Vol] 100 mmol/L Normal 98-107 [facility] Comment on above: Performed By: #### C BC, BNP, BMP, HS TROP #### [address] CO2 [Moles/Vol] 26.0 mmol/L Normal 21.0-31.0 The [facility] Comment on above: Performed By: #### C BC, BNP, BMP, HS TROP #### [address] Creatinine [Mass/Vol] 0.91 mg/dL Normal 0.70-1.30 [facility] Comment on above: Performed By: #### C BC, BNP, BMP, HS TROP #### [address] Creatinine Clr Calc Pharmacy 82.47 Normal [facility] Comment on above: Result Comment: PERF ORMED BY: [place] [address] PATHOLOGIST PIPER HELPER RAKEL LAZARO M.D. Performed By: #### C BC, BNP, BMP, HS TROP #### [facility] [address] [place] [address] [place] GFR/1.73 sq M.predicted MDRD (S/P/Bld) [Vol rate/Area] mL/min/{1.73_m2} Normal [facility] Comment on above: Performed By: #### C BC, BNP, BMP, HS TROP #### [address] Glucose [Mass/Vol] 100 mg/dL Normal 70-100 The [facility] Comment on above: Result Comment: [facility] Glucose Reference Range is dependent on time and content of last meal. Glucose of more than 200 mg/dL in a nonstressed, ambulatory subject supports the diagnosis of Diabetes Mellitus. ADA recommended reference range Performed By: #### C BC, BNP, BMP, HS TROP #### [address] Potassium [Moles/Vol] 4.2 mmol/L Normal 3.5-5.1 [facility] Comment on above: Performed By: #### C BC, BNP, BMP, HS TROP #### [address] Sodium [Moles/Vol] 133 mmol/L Low 136-145 [facility] Comment on above: Performed By: #### C BC, BNP, BMP, HS TROP #### [place] [address] [place] Urea nitrogen [Mass/Vol] 18 mg/dL Normal 7-25 [facility] Comment on above: Performed By: #### C BC, BNP, BMP, HS TROP #### [place] [address] [place] Basophils Auto (Bld) [#/Vol] Ordered By: Daisy Paul on 09-20-2024 Basophils (Bld) [#/Vol] Automated basophil count 0.0-0.2 [facility] Basophils/100 WBC Auto (Bld) Ordered By: Daisy Paul on 09-20-2024 Basophils/100 WBC (Bld) Automated basophil % . [facility] BioFire Not Detectedon 09-20 BioFire Not Detected Not detected Normal Not Detecte [facility] Comment on above: Result Comment: This is a duplicate RP2.1 COVID (PCR) result to be used for statistical tracking purpose only. PERFORMED BY: [place] [address] PATHOLOGIST PIPER HELPER RAKEL LAZARO M.D. Performed By: #### H S TROP #### [address] COVID-19 Detected/Not Detect edOrdered By: Daisy Paul on 09-20-2024 SARS-CoV-2 (COVID-19) RNA JER+non-probe Ql (Nph) Not detected Not Detecte [facility] Comment on above: This is a duplicate RP2.1 COVID (PCR) result to be used for statistical tracking purpose only. Calcium [Mass/volume] in Ser um or PlasmaOrdered By: Daisy Paul on 09-20-2024 Calcium [Mass/Vol] Calcium [Mass/volume ] in Serum or Plasma 8.6-10.3 [facility] Carbon dioxide, total [Moles /volume] in Serum or PlasmaOrdered By: Daisy Paul on 09-20-2024 CO2 [Moles/Vol] Carbon dioxide, tota l [Moles/volume] in Serum or Plasma 21.0-31.0 [facility] Chloride [Moles/volume] in S r[place] or PlasmaOrdered By: Daisy Paul on 09-20-2024 Chloride [Moles/Vol] Chloride [Moles/vol ume] in Serum or Plasma 98-107 [facility] Complete Blood Count Auto Di ffon 09-20-2024 Basophils (Bld) [#/Vol] 0.0 10*3/uL Normal 0.0-0.2 [facility] Comment on above: Result Comment: PERF ORMED BY: [address] [address] PATHOLOGIST PIPER HELPER MOHAMED M EL-FAKHARANY M.D. Performed By: #### C BC, BNP, BMP, HS TROP #### [address] Basophils/100 WBC (Bld) 0.5 % Normal . [facility] Comment on above: Performed By: #### C BC, BNP, BMP, HS TROP #### [address] Eosinophils (Bld) [#/Vol] 0.0 10*3/uL Normal 0.0-0.45 [facility] Comment on above: Performed By: #### C BC, BNP, BMP, HS TROP #### [address] Eosinophils/100 WBC (Bld) 0.1 % Normal . [facility] Comment on above: Performed By: #### C BC, BNP, BMP, HS TROP #### [address] Erythrocyte distribution width (RBC) [Ratio] 13.9 % Normal 12.0-14.8 [facility] Comment on above: Performed By: #### C BC, BNP, BMP, HS TROP #### [address] Hematocrit (Bld) [Volume fraction] 41.1 % Normal 38.8-50.0 [facility] Comment on above: Performed By: #### C BC, BNP, BMP, HS TROP #### [address] Hemoglobin (Bld) [Mass/Vol] 14.1 g/dL Normal 13.0-17.0 [facility] Comment on above: Performed By: #### C BC, BNP, BMP, HS TROP #### [address] Lymphocytes (Bld) [#/Vol] 1.1 10*3/uL Normal 1.00-4.8 [facility] Comment on above: Performed By: #### C BC, BNP, BMP, HS TROP #### [place] [address] [place] Lymphocytes/100 WBC (Bld) 11.5 % Normal . [facility] Comment on above: Performed By: #### C BC, BNP, BMP, HS TROP #### [address] MCH (RBC) [Entitic mass] 32.1 pg Normal 27.5-35.2 [facility] Comment on above: Performed By: #### C BC, BNP, BMP, HS TROP #### [address] MCV (RBC) [Entitic vol] 93.6 fL Normal 83.5-101 [facility] Comment on above: Performed By: #### C BC, BNP, BMP, HS TROP #### [address] Mean Corpuscular HGB Conc 34.3 g/dL Normal 32.5-35.6 [facility] Comment on above: Performed By: #### C BC, BNP, BMP, HS TROP #### [address] Monocytes (Bld) [#/Vol] 0.5 10*3/uL Normal 0.0-0.8 [facility] Comment on above: Performed By: #### C BC, BNP, BMP, HS TROP #### [address] Monocytes/100 WBC (Bld) 23.57 % High 0.00-20.00 [facility] Comment on above: Result Comment: For adults in ED, MDW > 20.0 may be associated with a higher risk of sepsis during the first 12 hrs of hospital admission Performed By: #### C BC, BNP, BMP, HS TROP #### [place] [address] [place] Monocytes/100 WBC (Bld) 5.4 % Normal . [facility] Comment on above: Performed By: #### C BC, BNP, BMP, HS TROP #### [address] Neutrophils (Bld) [#/Vol] 8.1 10*3/uL High 1.8-7.7 [facility] Comment on above: Performed By: #### C BC, BNP, BMP, HS TROP #### [place] [address] [place] Neutrophils/100 WBC (Bld) 82.5 % Normal . [facility] Comment on above: Performed By: #### C BC, BNP, BMP, HS TROP #### [facility] [address] NRBC% 0.1 /100{WBC} Normal 0-0.5 The [facility] Comment on above: Performed By: #### C BC, BNP, BMP, HS TROP #### [address] Platelet mean volume (Bld) [Entitic vol] 8.9 fL Normal 6.6-10.1 The [facility] Comment on above: Performed By: #### C BC, BNP, BMP, HS TROP #### [place] [address] [place] Platelets (Bld) [#/Vol] 215 10*3/uL Normal 150-450 [facility] Comment on above: Performed By: #### C BC, BNP, BMP, HS TROP #### [place] [address] [place] RBC (Bld) [#/Vol] 4.39 10*6/uL Normal 3.90-5.60 The [facility] Comment on above: Performed By: #### C BC, BNP, BMP, HS TROP #### [place] [address] [place] WBC (Bld) [#/Vol] 9.8 10*3/uL Normal 4.1-10.5 [facility] Comment on above: Performed By: #### C BC, BNP, BMP, HS TROP #### [place] [address] [place] Creatinine [Mass/volume] in Serum or PlasmaOrdered By: Daisy Paul on 09-20-2024 Creatinine [Mass/Vol] Creatinine [Mass/v olume] in Serum or Plasma 0.70-1.30 [facility] ECG 12 lead ECGon 09-20-2024 ECG 12 lead ECG [facility] [address] [address] Electrocardiograph Report Signed Patient: Shantel Melendez MR#: [id number] : 1960 Acct:[id number] Age/Sex: 63 / M ADM Date: 09/20/24 Loc: ER Room: Type: [facility] ER Attending Dr: Ordering Provider: [...] wave abnormality Confirmed by Daisy Paul MD ([id number]) on 09/20/2024 7:46:03 PM Referred By: Electronically Signed By: Daisy Paul MD Transcribed By: MUS Signed By Daisy Paul MD 11/09 Normal [facility] Eosinophils Auto (Bld) [#/Vo l]Ordered By: Daisy Paul on 09-20-2024 Eosinophils (Bld) [#/Vol] Automated eosinophil count 0.0-0.45 [facility] Eosinophils/100 WBC Auto (Bl d)Ordered By: Daisy Paul on 09-20-2024 Eosinophils/100 WBC (Bld) Automated eosinophil % . [facility] Erythrocyte distribution wid th Auto (RBC) [Ratio]Ordered By: Daisy Paul on 09-20-2024 Erythrocyte distribution width (RBC) [Ratio] Erythrocyte distribution width [Ratio] by Automated count 12.0-14.8 [facility] Glucose [Mass/volume] in Ser um or PlasmaOrdered By: Daisy Paul on 09-20-2024 Glucose [Mass/Vol] Glucose [Mass/volume ] in Serum or Plasma 70-100 [facility] Comment on above: ADA recommended refe rence rangeRandom Glucose Reference Range is dependent on time and content of last meal. Glucose of more than 200 mg/dL in a nonstressed, ambulatory subject supports the diagnosis of Diabetes Mellitus. Hematocrit Auto (Bld) [Volum e fraction]Ordered By: Daisy Paul on 09-20-2024 Hematocrit (Bld) [Volume fraction] Hematocrit [Volume Fraction] of Blood by Automated count 38.8-50.0 [facility] Hemoglobin [Mass/volume] in BloodOrdered By: Daisy Paul on 09-20-2024 Hemoglobin (Bld) [Mass/Vol] Hemoglobin [Mass/volume] in Blood 13.0-17.0 [facility] Leukocytes [#/volume] correc mone for nucleated erythrocytes in Blood by Automated counOrdered By: Daisy Paul on 09-20-2024 WBC corrected for nucl RBC Auto (Bld) [#/Vol] Leukocytes [#/volume] corrected for nucleated erythrocytes in Blood by Automated coun 4.1-10.5 [facility] Lymphocytes Auto (Bld) [#/Vo l]Ordered By: Daisy Paul on 09-20-2024 Lymphocytes (Bld) [#/Vol] Lymphocytes [#/volume] in Blood by Automated count 1.00-4.8 [facility] Lymphocytes/100 WBC Auto (Bl d)Ordered By: Daisy Paul on 09-20-2024 Lymphocytes/100 WBC (Bld) Lymphocytes/100 leukocytes in Blood by Automated count . [facility] MCH Auto (RBC) [Entitic mass ]Ordered By: Daisy Paul on 09-20-2024 MCH (RBC) [Entitic mass] MCH [Entitic mass] by Automated count 27.5-35.2 [facility] MCHC Auto (RBC) [Mass/Vol]Or dered By: Daisy Paul on 09-20-2024 MCHC (RBC) [Mass/Vol] MCHC [Mass/volume] by Automated count 32.5-35.6 [facility] MCV Auto (RBC) [Entitic vol] Ordered By: Daisy Paul on 09-20-2024 MCV (RBC) [Entitic vol] MCV [Entitic volume] by Automated count 83.5-101 [facility] Monocyte distribution width [Entitic volume] in Blood by AutomatedOrdered By: Daisy Paul on 09-20-2024 Monocyte distribution width Auto (Bld) [Entitic vol] Monocyte distribution width [Entitic volume] in Blood by Automated High 0.00-20.00 [facility] Comment on above: For adults in ED, MD W > 20.0 may be associated with a higher risk of sepsis during the first 12 hrs of hospital admission Monocytes Auto (Bld) [#/Vol] Ordered By: Daisy Paul on 09-20-2024 Monocytes (Bld) [#/Vol] Automated blood monocyte count 0.0-0.8 [facility] Monocytes/100 WBC Auto (Bld) Ordered By: Daisy Paul on 09-20-2024 Monocytes/100 WBC (Bld) Automated monocyte % . [facility] Natriuretic peptide B [Mass/ Vol]Ordered By: Daisy Paul on 09-20-2024 Natriuretic peptide B (Bld) [Mass/Vol] BNP ser/plas 5-100 [facility] Neutrophils Auto (Bld) [#/Vo l]Ordered By: Daisy Paul on 09-20-2024 Neutrophils (Bld) [#/Vol] Neutrophils [#/volume] in Blood by Automated count High 1.8-7.7 [facility] Neutrophils/100 WBC Auto (Bl d)Ordered By: Daisy Paul on 09-20-2024 Neutrophils/100 WBC (Bld) Automated neutrophil % . [facility] No Panel InformationOrdered By: Daisy Paul on 09-20-2024 Estimated GFR (CKD-EPI) > 60.0 mL/Min [facility] Creatinine Clearance (Chem 82.47 [facility] Nucleated erythrocytes [Pres ence] in Blood by Automated countOrdered By: Daisy Paul on 09-20-2024 Nucleated RBC Auto Ql (Bld) Nucleated erythrocytes [Presence] in Blood by Automated count 0-0.5 [facility] Platelet mean volume Auto (B ld) [Entitic vol]Ordered By: Daisy Paul on 09-20-2024 Platelet mean volume (Bld) [Entitic vol] Platelet mean volume [Entitic volume] in Blood by Automated count 6.6-10.1 [facility] Platelets Auto (Bld) [#/Vol] Ordered By: Daisy Paul on 09-20-2024 Platelets (Bld) [#/Vol] Platelets [#/volume] in Blood by Automated count 150-450 [facility] Potassium [Moles/volume] in Serum or PlasmaOrdered By: Daisy Paul on 09-20-2024 Potassium [Moles/Vol] Potassium [Moles/v olume] in Serum or Plasma 3.5-5.1 [facility] RBC Auto (Bld) [#/Vol]Ordere d By: Daisy Paul on 09-20-2024 RBC (Bld) [#/Vol] Erythrocytes [#/volu me] in Blood by Automated count 3.90-5.60 [facility] Respiratory (Upper) Panel, P CRon 09-20-2024 Respiratory [...] A H3 Blank Space ---- PERFORMED BY: [facility] [place] [address] PATHOLOGIST PIPER HELPER RAKEL LAZARO M.D. Normal [facility] Comment on above: Performed By: #### H S TROP #### [address] Respiratory pathogens DNA an d RNA panel - Nasopharynx by JER with non-probe detectionOrdered By: Daisy Paul on 09-20-2024 Respiratory pathogens DNA and RNA panel JER+non-probe (Nph) Respiratory pathogens DNA and RNA panel - Nasopharynx by JER with non-probe detection [facility] Serum or plasma anion gap de terminationOrdered By: Daisy Paul on 09-20-2024 Anion gap [Moles/Vol] Serum or plasma an ion gap determination 6.0-15.0 [facility] Sodium [Moles/volume] in Ser um or PlasmaOrdered By: Daisy Paul on 09-20-2024 Sodium [Moles/Vol] Sodium [Moles/volume ] in Serum or Plasma Low 136-145 [facility] Troponin I High Sensitivityo n 09-20-2024 Troponin I High Sensitivity 8 Normal 0-20 [facility] Comment on above: Result Comment: The Troponin units of report have been changed to meet the Chest Pain Accreditation requirement, element EC5.M1l2. Troponin units are changed from pg/ml to ng/L. Also, the decimal is removed and results are in whole numbers. PERFORMED BY: [place] [address] PATHOLOGIST PIPER HELPER RAKEL LAZARO M.D. Performed By: #### H S TROP #### [address] Troponin I High Sensitivity 8 Normal 0-20 [facility] Comment on above: Result Comment: The Troponin units of report have been changed to meet the Chest Pain Accreditation requirement, element EC5.M1l2. Troponin units are changed from pg/ml to ng/L. Also, the decimal is removed and results are in whole numbers. PERFORMED BY: [place] [address] PATHOLOGIST PIPER HELPER RAKEL LAZARO M.D. Performed By: #### C BC, BNP, BMP, HS TROP #### [facility] [address] Troponin I.cardiac [Mass/vol ume] in Serum or Plasma by Detection limit <= 0.01 ng/Ordered By: Daisy Paul on 09-20-2024 Troponin I.cardiac DL <= 0.01 ng/mL [Mass/Vol] Troponin I.cardiac [Mass/volume] in Serum or Plasma by Detection limit <= 0.01 ng/ 0-20 [facility] Comment on above: The Troponin units o f report have been changed to meet the Chest Pain Accreditation requirement, element EC5.M1l2. Troponin units are changed from pg/ml to ng/L. Also, the decimal is removed and results are in whole numbers. Urea nitrogen [Mass/volume] in Serum or PlasmaOrdered By: Daisy Paul on 09-20-2024 Urea nitrogen [Mass/Vol] Urea nitrogen [Mass/volume] in Serum or Plasma 7 [facility] WBC Auto (Bld) [#/Vol]Ordere d By: Daisy Paul on 09-20-2024 WBC (Bld) [#/Vol] Leukocytes [#/volume ] in Blood by Automated count 4.1-10.5 [facility] X-ray reportOrdered By: Rex Hutchins on 09-20-2024 Study report [place] [address] XRay Report Signed Patient: Shantel Melendez MR#: [id number] : 1960 Acct:[id number] Age/Sex: 63 / M ADM Date: 5 Loc: ER Room: Type: [facility] ER Attending Dr: Copies to: [...] Hutchins MD 09/20/241244 Signed By: 09/20/24 124 [facility] Work Phone: XR chest 2V*on 09-20-2024 XR chest 2V* [facility] [place] [address] [place] [address] XRay Report Signed Patient: Shantel Melendez MR#: [id number] : 1960 Acct:[id number] Age/Sex: 63 / M ADM Date: 09/20/24 Loc: ER Room: Type: [facility] ER Attending Dr: Copies to: [...] MD 09/20/241244 Signed By: 09/20/241246 Normal [facility] US ankle/arm indiceson 09-16 US ankle/arm indices [facility] [address] [place], [place] [id number] Ultrasound Report Signed Patient: Shantel Melendez MR#: [id number] : 1960 Acct:[id number] Age/Sex: 63 / M ADM Date: 09/11/24 Loc: [facility] Room: Type: [facility] CLI Attending Dr: Ruddy Harvey MD Ordering [...] Filipe Hess M.D.09/16/2024 2:46 PM Dictation Location: [place] [address] Tech: Agueda Helm Transcribed By: MARISA 09/16/24 1446 Dictated By: Filipe Hess MD 09/16/24 1445 Signed By: 09/16/24 1446 Normal [facility] X-ray reportOrdered By: Yehuda Pozo on 06-24-2024 Study report [place] [address] XRay Report Signed Patient: Shantel Melendez MR#: [id number] : 1960 Acct:[id number] Age/Sex: 63 / M ADM Date: 2 5 Loc: XD Room: Type: [facility] CLI Attending Dr: Solomon DIETRICHC [...] Pozo Jr, DO 06/24/242005 Signed By: 06/24/242007 [facility] XR cervical spine LAT/FLX/EX Ivan 06-24-2024 XR cervical spine LAT/FLX/EXT [place] [address] XRay Report Signed Patient: Shantel Melendez MR#: [id number] : 1960 Acct:[id number] Age/Sex: 63 / M ADM Date: 06/24/24 Loc: XD Room: Type: [facility] Attending Dr: Solomon Narayanan PA-C Copies [...] DO 06/24/242005 Signed By: 06/24/242007 Normal [facility] Basic metabolic 2000 panelon 04-10-2024 Anion gap [Moles/Vol] 14 mmol/L 10 - 2 0 mmol/L [facility] Calcium [Mass/Vol] 9 mg/dL 8.6 - 10. 6 mg/dL [facility] Chloride [Moles/Vol] 103 mmol/L 98 - 10 7 mmol/L [facility] CO2 [Moles/Vol] 26 mmol/L 21 - 32 mmol/L [facility] Creatinine [Mass/Vol] 0.86 mg/dL 0.50 - 1.30 mg/dL [facility] eGFR - PINF [facility] Comment on above: Calculations of sandra mated GFR are performed using the 2020 CKD-EPI Study Refit equation without the race variable for the IDMS-Traceable creatinine methods. https://jasn.asnjournals.org/content/early/ASN.63519 58858 Glucose [Mass/Vol] 159 mg/dL High 74 - 99 mg/dL [facility] Interpretation and review of laboratory results Abnormal [facility] Potassium [Moles/Vol] 4.5 mmol/L 3.5 - 5.3 mmol/L [facility] Sodium [Moles/Vol] 138 mmol/L 136 - 145 mmol/L [facility] Urea nitrogen [Mass/Vol] 14 mg/dL 6 - 23 mg/dL [facility] Anion gap [Moles/Vol] 14 mmol/L Normal 10-[address] [facility] Comment on above: Performed By: #### 5 7021-8 #### TITUS Mercado ([id number]) [facility] ([facility]) [address] [place] [address] Calcium [Mass/Vol] 9.0 mg/dL Normal 8.6-10.6 [facility] Comment on above: Performed By: #### 5 7021-8 #### TITUS Mercado ([id number]) [facility] ([facility]) [address] [place] [address] Chloride [Moles/Vol] 103 mmol/L Normal 98-107 [facility] Comment on above: Performed By: #### 5 7021-8 #### TITUS Mercado ([id number]) [facility] ([facility]) [address] [place] [address] CO2 [Moles/Vol] 26 mmol/L Normal 21-32 [facility] Comment on above: Performed By: #### 5 7021-8 #### TITUS Mercado ([id number]) [facility] ([facility]) [address] [place] [address] Creatinine [Mass/Vol] 0.86 mg/dL Normal 0.50-1.[address] [facility] Comment on above: Performed By: #### 5 7021-8 #### TITUS Mercado ([id number]) [facility] ([facility]) [address] [place] [address] GFR/1.73 sq M.predicted MDRD (S/P/Bld) [Vol rate/Area] mL/min/{1.73_m2} Normal >60 [facility] Comment on above: Result Comment: Calc ulations of estimated GFR are performed using the 2020 CKD-EPI Study Refit equation without the race variable for the IDMS-Traceable creatinine methods. https://jasn.asnjournals.org/content/early//ASN.62009 95544 Performed By: #### 5 7021-8 #### TITUS Mercado ([id number]) [facility] ([facility]) [address] [place] [address] Glucose [Mass/Vol] 159 mg/dL High 74-99 [facility] Comment on above: Performed By: #### 5 7021-8 #### TITUS Mercado ([id number]) [facility] ([facility]) [address] [place] [address] Potassium [Moles/Vol] 4.5 mmol/L Normal 3.5-5.[address] [facility] Comment on above: Performed By: #### 5 7021-8 #### TITUS Mercado ([id number]) [facility] ([facility]) [address] [place] [address] Sodium [Moles/Vol] 138 mmol/L Normal 136-145 [facility] Comment on above: Performed By: #### 5 7021-8 #### TITUS Mercado ([id number]) [facility] ([facility]) [id number] [place] [address] Urea nitrogen [Mass/Vol] 14 mg/dL Normal 6-23 [facility] Comment on above: Performed By: #### 5 7021-8 #### TITUS Mercado ([id number]) [facility] ([facility]) [id number] [place] [address] CBC panel Auto (Bld)on 04-10 Erythrocyte distribution width (RBC) [Ratio] 13.3 % 11.5 - 14.5 % [facility] Hematocrit (Bld) [Volume fraction] 38 % Low 41.0 - 52.0 % [facility] Hemoglobin (Bld) [Mass/Vol] 12.9 g/dL Low 13.5 - 17.5 g/dL [facility] Interpretation and review of laboratory results Abnormal [facility] MCH (RBC) [Entitic mass] 31.9 pg 26.0 - 34.0 pg [facility] MCHC (RBC) [Mass/Vol] 33.9 g/dL 32.0 - 36.0 g/dL [facility] MCV (RBC) [Entitic vol] 94 fL 80 - 100 fL [facility] Nucleated RBC/100 WBC (Bld) [Ratio] 0 % [facility] Platelets (Bld) [#/Vol] 221 10*3/uL [facility] RBC (Bld) [#/Vol] 4.05 10*6/uL Low [facility] WBC (Bld) [#/Vol] 9.6 10*3/uL [facility] Erythrocyte distribution width (RBC) [Ratio] 13.3 % Normal 11.5-14.5 [facility] Comment on above: Performed By: #### 5 7021-8 #### TITUS Mercado ([id number]) [facility] ([facility]) [address] [place] [address] Hematocrit (Bld) [Volume fraction] 38.0 % Low 41.0-52.0 [facility] Comment on above: Performed By: #### 5 7021-8 #### TITUS Mercado ([id number]) [facility] ([facility]) [address] [place] [address] Hemoglobin (Bld) [Mass/Vol] 12.9 g/dL Low 13.5-17.5 [facility] Comment on above: Performed By: #### 5 7021-8 #### TITUS Mercado ([id number]) [facility] ([facility]) [address] [place] [address] 21243 MCH (RBC) [Entitic mass] 31.9 pg Normal 26.0-34.0 [facility] Comment on above: Performed By: #### 5 7021-8 #### TITUS Mercado ([id number]) [facility] ([facility]) [address] [place] [address] 83792 MCHC (RBC) [Mass/Vol] 33.9 g/dL Normal 32.0-36.[address] [facility] Comment on above: Performed By: #### 5 7021-8 #### TITUS Mercado ([id number]) [facility] ([facility]) [address] [place] [address] 84773 MCV (RBC) [Entitic vol] 94 fL Normal 80-100 [facility] Comment on above: Performed By: #### 5 7021-8 #### TITUS Mercdao ([id number]) [facility] ([facility]) [address] [place] [address] 55427 Nucleated RBC/100 WBC (Bld) [Ratio] 0.0 /100 WBCs Normal 0.0-0.0 [facility] Comment on above: Performed By: #### 5 7021-8 #### TITUS ELENAER L ([id number]) [facility] ([facility]) [address] [place] [address] Platelets (Bld) [#/Vol] 221 x10*3/uL Normal 150-450 [facility] Comment on above: Performed By: #### 5 7021-8 #### TITUS SCHMOTZER L ([id number]) [facility] ([facility]) [address] [place] [address] RBC (Bld) [#/Vol] 4.05 x10*6/uL Low 4.50-5.90 [facility] Comment on above: Performed By: #### 5 7021-8 #### TITUS SCHMOTZER L ([id number]) [facility] ([facility]) [address] [place] [address] WBC (Bld) [#/Vol] 9.6 x10*3/uL Normal 4.4-11.3 [facility] Comment on above: Performed By: #### 5 7021-8 #### TITUS PAYANMOTZER L ([id number]) [facility] ([facility]) [address] [place] [address] 34821 XR CERVICAL SPINE 2-3 VIEWSo 04-10-2024 XR CERVICAL SPINE 2-3 VIEWS Interpreted By: Shubham Eubanks, STUDY: Cervical spine dated 04/10/2024. INDICATION: Signs/Symptoms:Post surgery COMPARISON: None. ACCESSION NUMBER(S): [id number] ORDERING CLINICIAN: DORETHA HARRIS TECHNIQUE: Two views [...] Shubham Eubanks 04/10/2024 10:05 AM Dictation workstation: [id number] [facility] Comment on above: Order Comment: Micheal alvarado have patient upright XR Cervical spine 2 or 3 Vie wson 04-10-2024 Surgical and degener ative change as above without osseous injury evident. MACRO: None Signed by: Shubham Eubanks 04/10/2024 10:05 AM Dictation workstation: [id number] Interpreted By: Shubham Curran, STUDY: Cervical spine dated 04/10/2024. INDICATION: Signs/Symptoms:Post surgery COMPARISON: None. ACCESSION NUMBER(S): [id number] ORDERING CLINICIAN: DORETHA HARRIS TECHNIQUE: Two views [...] INDICATION: Signs/Symptoms:Post surgery COMPARISON: None. ACCESSION NUMBER(S): [id number] ORDERING CLINICIAN: DORETHA HARRIS TECHNIQUE: Two views [...] Shubham Eubanks 04/10/2024 10:05 AM Dictation workstation: [id number] [facility] Work Phone: Radiology Study observation (narrative) [facility] Work Phone: XR Cervical spine 2 or 3 Vie wsOrdered By: Shubham Eubanks on 04-10-2024 [facility] Work Phone: Blood type and Indirect anti body screen panel (Bld)on 04-09-2024 ABO group Nom (Bld) A [facility] Blood group antibody screen Ql Negative [facility] D Ag Ql (Bld) Positive [facility] ABO group Nom (Bld) A Normal [facility] Comment on above: Order Comment: As ne eded for scheduled for aortic, liver, cardiac, or thoracic surgery OR hgb<7.5mg/dl and no active type and screen. Performed By: #### 5 7021-8 #### TITUS Mercado ([id number]) [facility] ([facility]) [address] [place] [address] Blood group antibody screen Ql Negative [facility] Comment on above: Order Comment: As ne eded for scheduled for aortic, liver, cardiac, or thoracic surgery OR hgb<7.5mg/dl and no active type and screen. Performed By: #### 5 7021-8 #### TITUS Mercado ([id number]) [facility] ([facility]) [address] [place], [place] [id number] D Ag Ql (Bld) Positive [facility] Comment on above: Order Comment: As ne eded for scheduled for aortic, liver, cardiac, or thoracic surgery OR hgb<7.5mg/dl and no active type and screen. Performed By: #### 5 7021-8 #### TITUS Mercado ([id number]) [facility] ([facility]) [address] [place] [address] 68463 FL FLUORO IMAGES NO CHARGEon 04-09-2024 FL FLUORO IMAGES NO CHARGE These images are not reportable by radiology and will not be interpreted by Radiologists. Normal [facility] Gas and Carbon monoxide and Electrolytes panel (BldA)on 04-09-2024 Anion gap 4 (BldA) [Moles/Vol] 8 Low [facility] Base excess Calc (Bld) [Moles/Vol] -1.9000 mmol/L -2.0 - 3.0 mmol/L [facility] Calcium.ionized (BldA) [Moles/Vol] 1.24 mmol/L 1.10 - 1.33 mmol/L [facility] Chloride (BldA) [Moles/Vol] 104 mmol/L 98 - 107 mmol/L [facility] CO2 (Bld) [Partial pressure] 46 mm[Hg] High [facility] Glucose [Mass/Vol] 132 mg/dL High 74 - 99 mg/dL [facility] HCO3 (Bld) [Moles/Vol] 24.3 mmol/L 22.0 - 26.0 mmol/L [facility] Hematocrit Est (Bld) [Volume fraction] 39 % Low 41.0 - 52.0 % [facility] Hemoglobin (Bld) [Mass/Vol] 12.9 g/dL Low 13.5 - 17.5 g/dL [facility] Inhaled oxygen concentration 44 % [facility] Interpretation and review of laboratory results Abnormal [facility] Lactate (BldA) [Moles/Vol] 0.7 mmol/L 0.4 - 2.0 mmol/L [facility] Oxygen (Bld) [Partial pressure] 156 mm[Hg] High [facility] Oxyhemoglobin (BldA) [Mass fraction] 95 % 94.0 - 98.0 % [facility] pH (Bld) 7.33 [pH] Low 7.38 - 7.42 pH [facility] Potassium (BldA) [Moles/Vol] 4.5 mmol/L 3.5 - 5.3 mmol/L [facility] Sodium (BldA) [Moles/Vol] 132 mmol/L Low 136 - 145 mmol/L [facility] Anion gap 4 (BldA) [Moles/Vol] 8 mmo/L Low 10-25 [facility] Comment on above: Performed By: #### 5 7021-8 #### TITUS Mercado ([id number]) [facility] ([facility]) [address] [place] [address] Base excess Calc (Bld) [Moles/Vol] -1.9000 mmol/L Normal -2.0-3.0 [facility] Comment on above: Performed By: #### 5 7021-8 #### TITUS Mercado ([id number]) [facility] ([facility]) [address] [place] [address] 20035 Calcium.ionized (BldA) [Moles/Vol] 1.24 mmol/L Normal 1.10-1.33 [facility] Comment on above: Performed By: #### 5 7021-8 #### TITUS Mercado ([id number]) [facility] ([facility]) [address] [place] [address] 40977 Chloride (BldA) [Moles/Vol] 104 mmol/L Normal 98-107 [facility] Comment on above: Performed By: #### 5 7021-8 #### TITUS Mercado ([id number]) [facility] ([facility]) [address] [place] [address] 25069 CO2 (Bld) [Partial pressure] 46 mm Hg High 38-42 [facility] Comment on above: Performed By: #### 5 7021-8 #### TITUS Mercado ([id number]) [facility] ([facility]) [address] [place] [address] 52972 Glucose [Mass/Vol] 132 mg/dL High 74-99 [facility] Comment on above: Performed By: #### 5 7021-8 #### TITUS Mercado ([id number]) [facility] ([facility]) [address] [place] [address] 36944 HCO3 (Bld) [Moles/Vol] 24.3 mmol/L Normal 22.0-26.0 [facility] Comment on above: Performed By: #### 5 7021-8 #### TITUS Mercado ([id number]) [facility] ([facility]) [address] [place] [address] 12811 Hematocrit Est (Bld) [Volume fraction] 39.0 % Low 41.0-52.0 [facility] Comment on above: Performed By: #### 5 7021-8 #### TITUS Mercado ([id number]) [facility] ([facility]) [address] [place] [address] 75502 Hemoglobin (Bld) [Mass/Vol] 12.9 g/dL Low 13.5-17.5 [facility] Comment on above: Performed By: #### 5 7021-8 #### TITUS Mercado ([id number]) [facility] ([facility]) [address] [place] [address] 49971 Inhaled oxygen concentration 44 % Normal [facility] Comment on above: Performed By: #### 5 7021-8 #### TITUS Mercado ([id number]) [facility] ([facility]) [address] [place] [address] 18196 Lactate (BldA) [Moles/Vol] 0.7 mmol/L Normal 0.4-2.0 [facility] Comment on above: Performed By: #### 5 7021-8 #### TITUS Mercado ([id number]) [facility] ([facility]) [address] [place] [address] 60135 Oxygen (Bld) [Partial pressure] 156 mm Hg High 85-95 [facility] Comment on above: Performed By: #### 5 7021-8 #### TITUS Mercado ([id number]) [facility] ([facility]) [address] [place] [address] 67929 Oxyhemoglobin (BldA) [Mass fraction] 95.0 % Normal 94.0-98.0 [facility] Comment on above: Performed By: #### 5 7021-8 #### TITUS Mercado ([id number]) [facility] ([facility]) [address] [place] [address] 11047 pH (Bld) 7.33 [pH] Low 7.38-7.42 [facility] Comment on above: Performed By: #### 5 7021-8 #### TITUS Mercado ([id number]) [facility] ([facility]) [address] [place] [address] 15126 Potassium (BldA) [Moles/Vol] 4.5 mmol/L Normal 3.5-5.3 [facility] Comment on above: Performed By: #### 5 7021-8 #### TITUS Mercado ([id number]) [facility] ([facility]) [address] [place] [address] Sodium (BldA) [Moles/Vol] 132 mmol/L Low 136-145 [facility] Comment on above: Performed By: #### 5 7021-8 #### TITUS Mercado ([id number]) [facility] ([facility]) [address] [place] [address] 01336 XR tomography Unspecified monique dy regionon 04-09-2024 These images are not reportable by radiology and will not be interpreted by Radiologists. IMAGING CT TRANSFER OF OUTSIDE FILMS on 03-31-2024 CT TRANSFER OF OUTSIDE FILMS Outside images for comparison or treatment purposes, not interpreted by Radiologists. Normal [facility] Study Interpretation of outs jeffrey studyon 03-31-2024 Outside images for comparison or treatment purposes, not interpreted by Radiologists. IMAGING Blood type and Indirect anti body screen panel (Bld)on 03-26-2024 ABO group Nom (Bld) A Normal [facility] Comment on above: Performed By: #### 3 4532-2 #### TITUS Mercado ([id number]) [facility] ([facility]) [address] [place] [address] 35117 Blood group antibody screen Ql Negative [facility] Comment on above: Performed By: #### 3 4532-2 #### TITUS Mercado ([id number]) [facility] ([facility]) [address] [place] [address] D Ag Ql (Bld) Positive [facility] Comment on above: Performed By: #### 3 4532-2 #### TITUS Mercado ([id number]) [facility] ([facility]) [address] [place] [address] DEXA BONE DENSITYon 02-13-20 24 DEXA BONE DENSITY Interpreted By: Ruddy Simmons, STUDY: DEXA BONE DENSITY8/ 10:50 am INDICATION: Signs/Symptoms:r/o osteoporosis, NEED AXIAL SKELETON IMAGES.. The patient is a 63 y/o year old M. ,M54.12 Radiculopathy, cervical region COMPARISON: None. ACCESSION NUMBER(S): [id number] ORDERING CLINICIAN: DORETHA HARRIS TECHNIQUE: DEXA BONE [...] Ruddy Lopez 12/29/2024 8:09 AM Dictation workstation: [id number] [facility] DXA Skeletal system Views fo [...] Radiculopathy, cervical region COMPARISON: None. ACCESSION NUMBER(S): [id number] ORDERING CLINICIAN: DORETHA HARRIS FINDINGS: C-spine, 6 [...] Romulo Medrano 02/19/2024 6:35 PM Dictation workstation: [id number] [facility] Comment on above: Order Comment: Pleas e obtain with flexion and extension XR CHEST 2 VIEWSon XR CHEST 2 VIEWS Interpreted By: Romulo Hubbard, STUDY: XR CHEST 2 VIEWS; 02/13/2024 11:10 am INDICATION: Signs/Symptoms:Preop surgery 02/[address] Steven MD. ,M54.12 Radiculopathy, cervical region,M81.0 Age-related osteoporosis without current pathological fracture COMPARISON: None. ACCESSION NUMBER(S): [id number] ORDERING CLINICIAN: DORETHA HARRIS FINDINGS: CARDIOMEDIASTINAL SILHOUETTE: Cardiomediastinal silhouette is normal in size and configuration. LUNGS: Lungs are clear. ABDOMEN: No remarkable upper abdominal findings. BONES: No acute osseous changes. IMPRESSION: 1. No evidence of acute cardiopulmonary process. MACRO: None Signed by: Romulo Medrano 02/19/2024 6:53 PM Dictation workstation: [id number] [facility] ECG 12 leadOrdered By: Shavon Rico on 02-12-2024 Atrial Rate 63 BPM [facility] Work Phone: P [place] 58 degrees [facility] Work Phone: P Offset 149 ms [facility] Work Phone: P Onset 90 ms [facility] Work Phone: [phone] HI Interval 268 ms [facility] Work Phone: [phone] Q Onset 224 ms [facility] Work Phone: [phone] QRS Count 10 beats [facility] Work Phone: [phone] QRS Duration 74 ms [facility] Work Phone: [phone] QT Interval 406 ms [facility] Work Phone: [phone] QTC Calculation(Bazett) 415 ms [facility] Work Phone: [phone] QTC Fredericia 412 ms [facility] Work Phone: [phone] R [place] -3 degrees [facility] Work Phone: [phone] T [place] 18 degrees [facility] Work Phone: [phone] T Offset 427 ms [facility] Work Phone: [phone] Ventricular Rate 63 BPM [facility] Work Phone: [phone] [facility] Work Phone: [phone] ECG 12 leadon 02-12-2024 Sinus rhythm [...] Tobi Rico ([id number]) on 02/12/2024 12:20:00 PM [facility] Work Phone: Basic metabolic 2000 panelon 02-11-2024 Anion gap [Moles/Vol] 13 mmol/L Normal 10-[address] [facility] Comment on above: Performed By: #### 2 4321-2 #### TITUS Mercado ([id number]) [facility] ([facility]) [address] [place] [address] Calcium [Mass/Vol] 9.6 mg/dL Normal 8.6-10.6 [facility] Comment on above: Performed By: #### 2 4321-2 #### TITUS Mercado ([id number]) [facility] ([facility]) [address] [place] [address] Chloride [Moles/Vol] 104 mmol/L Normal 98-107 [facility] Comment on above: Performed By: #### 2 4321-2 #### TITUS Mercado ([id number]) [facility] ([facility]) [address] [place] [address] CO2 [Moles/Vol] 26 mmol/L Normal 21-32 [facility] Comment on above: Performed By: #### 2 4321-2 #### TITUS Mercado ([id number]) [facility] ([facility]) [address] [place] [address] Creatinine [Mass/Vol] 0.89 mg/dL Normal 0.50-1.[address] [facility] Comment on above: Performed By: #### 2 4321-2 #### TITUS Mercado ([id number]) [facility] ([facility]) [address] [place] [address] GFR/1.73 sq M.predicted MDRD (S/P/Bld) [Vol rate/Area] mL/min/{1.73_m2} Normal >60 [facility] Comment on above: Result Comment: Calc ulations of estimated GFR are performed using the 2020 CKD-EPI Study Refit equation without the race variable for the IDMS-Traceable creatinine methods. https://jasn.asnjournals.org/content/early/ASN.60039 86611 Performed By: #### 2 4321-2 #### TITUS Mercado (58757) [facility] ([facility]) [address] [place] [address] Glucose [Mass/Vol] 77 mg/dL Normal 74-99 [facility] Comment on above: Performed By: #### 2 4321-2 #### TITUS Mercado ([id number]) [facility] ([facility]) [address] [place] [address] Potassium [Moles/Vol] 4.6 mmol/L Normal 3.5-5.[address] [facility] Comment on above: Performed By: #### 2 4321-2 #### TITUS Mercado ([id number]) [facility] ([facility]) [address] [place] [address] 58548 Sodium [Moles/Vol] 138 mmol/L Normal 136-145 [facility] Comment on above: Performed By: #### 2 4321-2 #### TITUS Mercado ([id number]) [facility] ([facility]) [address] [place] [address] 86341 Urea nitrogen [Mass/Vol] 9 mg/dL Normal 6-23 [facility] Comment on above: Performed By: #### 2 432-2 #### TITUS Mercado ([id number]) [facility] ([facility]) [address] [place] [address] 88613 Blood type and Indirect anti body screen panel (Bld)on 02-11-2024 ABO group Nom (Bld) A Normal [facility] Comment on above: Performed By: #### 3 453-2 #### TITUS Mercado ([id number]) [facility] ([facility]) [address] [place] [address] Blood group antibody screen Ql Negative [facility] Comment on above: Performed By: #### 3 4532-2 #### TITUS Mercado ([id number]) [facility] ([facility]) [address] [place] [address] 57055 D Ag Ql (Bld) Positive [facility] Comment on above: Performed By: #### 3 453-2 #### TITUS Mercado ([id number]) [facility] ([facility]) [address] [place] [address] 16795 CBC W Auto Differential pane l (Bld)on 02-11-2024 Basophils (Bld) [#/Vol] 0.04 x10*3/uL Normal 0.00-0.10 [facility] Comment on above: Performed By: #### 5 7021-8 #### TITUS Mercado ([id number]) [facility] ([facility]) [address] [place] [address] 00768 Basophils/100 WBC (Bld) 0.8 % Normal 0.0-2.0 [facility] Comment on above: Performed By: #### 5 7021-8 #### TITUS Mercado ([id number]) [facility] ([facility]) [address] [place] [address] 96342 Eosinophils (Bld) [#/Vol] 0.05 x10*3/uL Normal 0.00-0.70 [facility] Comment on above: Performed By: #### 5 7021-8 #### TITUS SOLORZANO L (60629) [facility] ([facility]) [address] [place] [address] 43095 Eosinophils/100 WBC (Bld) 1.0 % Normal 0.0-6.0 [facility] Comment on above: Performed By: #### 5 7021-8 #### TITUS Mercado ([id number]) [facility] ([facility]) [address] [place] [address] 55260 Erythrocyte distribution width (RBC) [Ratio] 13.2 % Normal 11.5-14.5 [facility] Comment on above: Performed By: #### 5 7021-8 #### TITUS Mercado ([id number]) [facility] ([facility]) [address] [place] [address] 08257 Hematocrit (Bld) [Volume fraction] 39.6 % Low 41.0-52.0 [facility] Comment on above: Performed By: #### 5 7021-8 #### TITUS Mercado ([id number]) [facility] ([facility]) [address] [place] [address] Hemoglobin (Bld) [Mass/Vol] 13.2 g/dL Low 13.5-17.5 [facility] Comment on above: Performed By: #### 5 7021-8 #### TITUS Mercado ([id number]) [facility] ([facility]) [address] [place] [address] 69043 Immature granulocytes (Bld) [#/Vol] 0.00 x10*3/uL Normal 0.00-0.70 [facility] Comment on above: Performed By: #### 5 7021-8 #### TITUS Mercado ([id number]) [facility] ([facility]) [address] [place] [address] 56178 Immature granulocytes/100 WBC (Bld) 0.0 % Normal 0.0-0.9 [facility] Comment on above: Result Comment: Dayan ture Granulocyte Count (IG) includes promyelocytes, myelocytes and metamyelocytes but does not include bands. Percent differential counts (%) should be interpreted in the context of the absolute cell counts (cells/UL). Performed By: #### 5 7021-8 #### TITUS Mercado (48337) [facility] ([facility]) [address] [place] [address] 90385 Lymphocytes (Bld) [#/Vol] 1.74 x10*3/uL Normal 1.20-4.80 [facility] Comment on above: Performed By: #### 5 7021-8 #### TITUS Mercado ([id number]) [facility] ([facility]) [address] [place] [address] 07967 Lymphocytes/100 WBC (Bld) 33.1 % Normal 13.0-44.0 [facility] Comment on above: Performed By: #### 5 7021-8 #### TITUS Mercado ([id number]) [facility] ([facility]) [address] [place] [address] MCH (RBC) [Entitic mass] 31.5 pg Normal 26.0-34.0 [facility] Comment on above: Performed By: #### 5 7021-8 #### TITUS Mercado (87259) [facility] ([facility]) [address] [place] [address] MCHC (RBC) [Mass/Vol] 33.3 g/dL Normal 32.0-36.[address] [facility] Comment on above: Performed By: #### 5 7021-8 #### TITUS Mercado ([id number]) [facility] ([facility]) [address] [place] [address] 68487 MCV (RBC) [Entitic vol] 95 fL Normal 80-100 [facility] Comment on above: Performed By: #### 5 7021-8 #### TITUS Mercado ([id number]) [facility] ([facility]) [address] [place] [address] 45472 Monocytes (Bld) [#/Vol] 0.30 x10*3/uL Normal 0.10-1.00 [facility] Comment on above: Performed By: #### 5 7021-8 #### TITUS Mercado ([id number]) [facility] ([facility]) [address] [place] [address] 74144 Monocytes/100 WBC (Bld) 5.7 % Normal 2.0-10.0 [facility] Comment on above: Performed By: #### 5 7021-8 #### TITUS Mercado ([id number]) [facility] ([facility]) [address] [place] [address] 52451 Neutrophils (Bld) [#/Vol] 3.13 x10*3/uL Normal 1.20-7.70 [facility] Comment on above: Result Comment: Perc ent differential counts (%) should be interpreted in the context of the absolute cell counts (cells/uL). Performed By: #### 5 7021-8 #### TITUS PAYANMOTZSIMI L ([id number]) [facility] ([facility]) [address] [place] [address] Neutrophils/100 WBC (Bld) 59.4 % Normal 40.0-80.0 [facility] Comment on above: Performed By: #### 5 7021-8 #### TITUS SOLORZANO L ([id number]) [facility] ([facility]) [address] [place] [address] Nucleated RBC/100 WBC (Bld) [Ratio] 0.0 /100 WBCs Normal 0.0-0.0 [facility] Comment on above: Performed By: #### 5 7021-8 #### TITUS SOLORZANO L (19891) [facility] ([facility]) [address] [place] [address] 10524 Platelets (Bld) [#/Vol] 271 x10*3/uL Normal 150-450 [facility] Comment on above: Performed By: #### 5 7021-8 #### TITUS Mercado ([id number]) [facility] ([facility]) [address] [place] [address] 98589 RBC (Bld) [#/Vol] 4.19 x10*6/uL Low 4.50-5.90 [facility] Comment on above: Performed By: #### 5 7021-8 #### TITUS SOLORZANO L ([id number]) [facility] ([facility]) [address] [place] [address] 03103 WBC (Bld) [#/Vol] 5.3 x10*3/uL Normal 4.4-11.3 [facility] Comment on above: Performed By: #### 5 7021-8 #### TITUS SOLORZANO L ([id number]) [facility] ([facility]) [address] [place] [address] 14711 ECG 12-LEADon 02-11-2024 ECG 12-LEAD Ventricular Rate 63 Atrial Rate 63 P-R Interval 268 QRS Duration 74 Q-T Interval 406 QTC Calculation(Bazett) 415 P Norwich 58 R [place] -3 T [place] 18 QRS Count 10 Q Onset 224 P Onset 90 P Offset 149 T Offset 427 QTC Fredericia 412 Diagnosis Sinus rhythm with 1st degree AV block Otherwise normal ECG When compared with ECG of 30-JAN-2019 19:26, heart rate decreased Confirmed by Tobi Rico ([id number]) on 02/12/2024 12:20:00 PM Normal [facility] NICOTINE AND METABOLITES,Son 02-11-2024 Cotinine [Mass/Vol] 152 ng/mL Normal [facility] Comment on above: Performed By: #### N I+ME #### [facility] TRINA) ([id number]) [address] [place] [address] Nicotine [Mass/Vol] 6 ng/mL Normal [facility] Comment on above: Result Comment: INTE RPRETIVE [...] developed and its performance characteristics determined by [facility]. It has not been cleared or approved by the US Food and Drug Administration. This test was performed in a CLIA certified laboratory and is intended for clinical purposes. Performed By: [facility] [address] [place] [address] Ciaio Counter Molder: Benjamin Bullock MD, PhD CLIA Number: [id number] Performed By: #### N I+ME #### [facility] (ADAM) ([id number]) [address] [place] [address] PT and aPTT panel Coag (PPP) on 02-11-2024 aPTT Coag (PPP) [Time] 33 s Normal 27-38 Un [facility] Comment on above: Order Comment: The A PTT is no longer used for monitoring Unfractionated Heparin Therapy. For monitoring Heparin Therapy, use the Heparin Assay. Performed By: #### 3 4529-8 ###Payam Mercado ([id number]) [facility] ([facility]) [address] [place] [address] INR Coag (PPP) [Relative time] 1.0 Normal 0.9-1.1 [facility] Comment on above: Order Comment: The A PTT is no longer used for monitoring Unfractionated Heparin Therapy. For monitoring Heparin Therapy, use the Heparin Assay. Performed By: #### 3 4529-8 #### TITUS Mercado ([id number]) [facility] ([facility]) [address] [place] [address] PT Coag (PPP) [Time] 11.5 s Normal 9.8-12.8 [facility] Comment on above: Order Comment: The A PTT is no longer used for monitoring Unfractionated Heparin Therapy. For monitoring Heparin Therapy, use the Heparin Assay. Performed By: #### 3 4529-8 #### TITUS Mercado ([id number]) [facility] ([facility]) [address] [place] [address] Staphylococcus aureus.methic illin resistant isolateon 02-11-2024 MRSA isol Org specific cx Ql (Nose) Test: Staphylococcus aureus/MRSA colonization, Culture Specimen Source: Anterior Nares Specimen Type: Swab Specimen Date: 02/11/20241504 Result Date: 02/13/2024825 Result Status: Final result Abnormal: No Resulting Lab: [facility] [address] [place] [address] CULTURE No Staphylococcus aureus isolated Normal [facility] Comment on above: Performed By: #### 5 2969-3 #### TITUS Mercado ([id number]) [facility] ([facility]) [address] [place] [address] Urinalysis complete W Reflex Culture panel (U)on 02-11-2024 Appearance (U) Clear Normal Clear [facility] Comment on above: Performed By: #### 5 8077-9 #### TITUS Mercado ([id number]) [facility] ([facility]) [address] [place] [address] Bilirubin (U) [Mass/Vol] Negative Normal NEGATIVE [facility] Comment on above: Performed By: #### 5 8077-9 #### TITUS Mercado ([id number]) [facility] ([facility]) [address] [place] [address] Color (U) Colorless Normal Light-[place] ow, Yellow, Dark-Yello w [facility] Comment on above: Performed By: #### 5 8077-9 #### TITUS SOLORZANO L ([id number]) [facility] ([facility]) [address] [place] [address] Glucose Auto test strip (U) [Mass/Vol] Normal Normal Normal [facility] Comment on above: Performed By: #### 5 8077-9 #### TITUS Mercado ([id number]) [facility] ([facility]) [address] [place] [address] Ketones (U) [Mass/Vol] Negative Normal NEGATIVE [facility] Comment on above: Performed By: #### 5 8077-9 #### TITUS Mercado ([id number]) [facility] ([facility]) [address] [place] [address] Leukocyte esterase Auto test strip Ql (U) Negative Normal NEGATIVE [facility] Comment on above: Performed By: #### 5 8077-9 #### TITUS Mercado ([id number]) [facility] ([facility]) [address] [place] [address] Nitrite Auto test strip Ql (U) Negative Normal NEGATIVE [facility] Comment on above: Performed By: #### 5 8077-9 #### TITUS SOLORZANO L ([id number]) [facility] ([facility]) [address] [place] [address] pH (U) 5.5 [pH] Normal 5.0, 5.5, 6.0, 6.5, 7.0, 7.5, 8.0 [facility] Comment on above: Performed By: #### 5 8077-9 #### TITUS SOLORZANO L ([id number]) [facility] ([facility]) [address] [place] [address] Protein (U) [Mass/Vol] Negative Normal NEGAT KURT, 10 (TRACE), 20 (TRACE) [facility] Comment on above: Performed By: #### 5 8077-9 #### TITUS PAYANMOTZER L ([id number]) [facility] ([facility]) [address] [place] [address] RBC (U) [#/Vol] Negative Normal NEGATIVE [facility] Comment on above: Performed By: #### 5 8077-9 #### TITUS ORTIZTZER L ([id number]) [facility] ([facility]) [address] [place] [address] Specific gravity (U) [Rel density] 1.007 Normal 1.005-1.03 5 [facility] Comment on above: Performed By: #### 5 8077-9 #### TITUS PAYANMOTZER L ([id number]) [facility] ([facility]) [address] [place] [address] Urobilinogen (U) [Mass/Vol] Normal Normal Normal [facility] Comment on above: Performed By: #### 5 8077-9 #### TITUS PAYANMOTZER L ([id number]) [facility] ([facility]) [address] [place] [address] MR BRAIN TUMOR PERFUSION PRO TOCOL W AND WO IV CONTRASTon 12-13-2023 MR BRAIN TUMOR PERFUSION PROTOCOL W AND WO IV CONTRAST Interpreted By: Nate Benavidez, STUDY: MR BRAIN TUMOR PERFUSION PROTOCOL W AND WO IV CONTRAST; 12/13/2023 8:49 am INDICATION: Signs/Symptoms:pontine lesion, imaging surveillance. COMPARISON: None. ACCESSION NUMBER(S): [id number] ORDERING CLINICIAN: SHIMON HEATON TECHNIQUE: Axial diffusion, [...] Nate Benavidez 12/13/2023 9:38 AM Dictation workstation: [id number] [facility] Comment on above: Order Comment: JESSICA huerta cc'd to [facility] Brain for new diagnosis t umor WO [...] Nate Benavidez 12/13/2023 9:38 AM Dictation workstation: [id number] [facility]AL Interpreted By: Nate Dejesus, STUDY: MR BRAIN TUMOR PERFUSION PROTOCOL W AND WO IV CONTRAST; 12/13/2023 8:49 am INDICATION: Signs/Symptoms:pontine lesion, imaging surveillance. COMPARISON: None. ACCESSION NUMBER(S): [id number] ORDERING CLINICIAN: SHIMON HEATON TECHNIQUE: Axial diffusion, [...] lesion, imaging surveillance. COMPARISON: None. ACCESSION NUMBER(S): [id number] ORDERING CLINICIAN: SHIMON HEATON TECHNIQUE: Axial diffusion, [...] Nate Benavidez 12/13/2023 9:38 AM Dictation workstation: [id number] [facility] Work Phone: Radiology Study observation (narrative) [facility] Work Phone: MR Brain for new diagnosis t umor WO and W contrast IVOrdered By: Nate Benavidez on 12-13-2023 [facility] Work Phone: Basophils Auto (Bld) [#/Vol] on 10-26-2023 Basophils (Bld) [#/Vol] 0.04 10*3/uL <0.11 [facility] Basophils/100 WBC Auto (Bld) on 10-26-2023 Basophils/100 WBC (Bld) 0.5 % [facility] Blood manual differential co mment interpretation narrativeon 10-26-2023 Manual differential comment Curtis (Bld) [Interp] Auto [facility] CBC W Auto Differential pane l (Bld)on 10-26-2023 Basophils (Bld) [#/Vol] 0.04 10*3/uL [facility] Basophils/100 WBC (Bld) 0.5 % [facility] Differential cell count method Nom (Bld) Auto [facility] Eosinophils (Bld) [#/Vol] 0.13 10*3/uL [facility] Eosinophils/100 WBC (Bld) 1.5 % [facility] Erythrocyte distribution width (RBC) [Ratio] 13.8 % 11.5 - 15.0 % [facility] Hematocrit (Bld) [Volume fraction] 42.6 % 39.0 - 51.0 % [facility] Hemoglobin (Bld) [Mass/Vol] 14.4 g/dL 13.0 - 17.0 g/dL [facility] Immature granulocytes (Bld) [#/Vol] 0.03 10*3/uL [facility] Immature granulocytes/100 WBC (Bld) 0.3 % [facility] Lymphocytes (Bld) [#/Vol] 2.18 10*3/uL [facility] Lymphocytes/100 WBC (Bld) 24.8 % [facility] MCH (RBC) [Entitic mass] 32.0 pg 26.0 - 34.0 pg [facility] MCHC (RBC) [Mass/Vol] 33.8 g/dL 30.5 - 36.0 g/dL [facility] MCV (RBC) [Entitic vol] 94.7 fL 80.0 - 100.0 fL [facility] Monocytes (Bld) [#/Vol] 0.60 10*3/uL [facility] Monocytes/100 WBC (Bld) 6.8 % [facility] Neutrophils (Bld) [#/Vol] 5.80 10*3/uL [facility] Neutrophils/100 WBC (Bld) 66.1 % [facility] Nucleated RBC (Bld) [#/Vol] [facility] Nucleated RBC/100 WBC (Bld) [Ratio] 0.0 % /100 WBC [facility] Platelet mean volume (Bld) [Entitic vol] 10.2 fL 9.0 - 12.7 fL [facility] Platelets (Bld) [#/Vol] 314 10*3/uL [facility] RBC (Bld) [#/Vol] 4.50 10*6/uL 4.20 - 6.00 m/uL [facility] WBC (Bld) [#/Vol] 8.78 10*3/uL [facility] CT Chest W contrast Tristin IMPRESSION: [...] any questions regarding this interpretation, please call [phone]. If you are unable to reach us at the number above, please feel free to contact [facility] eRadiology at [phone]. DIVISION OF RADIOLOGY * * *Final Report* * * DATE OF EXAM: Oct 26 2023 10:05AM [facility] 0539 - CT CHEST W IVCON / [...] DATE OF EXAM: Oct 26 2023 10:05AM [facility] 0539 - CT CHEST W IVCON / [...] any questions regarding this interpretation, please call [phone]. If you are unable to reach us at the number above, please feel free to contact [facility] at [phone]. [facility] CT Neck W contrast Tristin 05-1 IMPRESSION: Primary: 1: Expected post-treatment changes in the neck without evidence of recurrent disease in the primary site. Neck: 1: No evidence of abnormal lymph nodes. [email or web address] Transcribe Date/Time: Oct 26 2023 10:15A Dictated by: LIMA LIZ MD This examination was interpreted and the report reviewed and electronically signed by: LIMA LIZ MD on Oct 26 2023 10:35AM EST Thank you for allowing us to participate in the care of your patient. Should there be any questions regarding this interpretation, please call [phone]. If you are unable to reach us at the number above, please feel free to contact [facility] at [phone]. 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 Resected T1 N1 base [...] normal. Parotid and submandibular spaces are normal. Signing Agent spaces appear normal. Infrahyoid Neck: Hypopharynx, larynx, [...] are clear of focal consolidation or mass. 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 Resected T1 N1 base [...] normal. Parotid and submandibular spaces are normal. Signing Agent spaces appear normal. Infrahyoid Neck: Hypopharynx, larynx, [...] are clear of focal consolidation or mass. Operation Specialist (topogram) images: Noncontributory IMPRESSION IMPRESSION: Primary: 1: Expected post-treatment changes in the neck without evidence of recurrent disease in the primary site. Neck: 1: No evidence of abnormal lymph nodes. [email or web address] Transcribe Date/Time: Oct 26 2023 10:15A Dictated by: LIMA LIZ MD This examination was interpreted and the report reviewed and electronically signed by: (more content not included)... [facility] CT Neck W contrast IVOrdered By: Ccf Provider on 10-26-2023 [facility] Comprehensive metabolic 2000 panelOrdered By: Pauly Chan on 10-26-2023 Albumin [Mass/Vol] 4.3 g/dL 3.9 - 4.9 g/dL [facility] ALP [Catalytic activity/Vol] 75 U/L 38 - 113 U/L [facility] ALT [Catalytic activity/Vol] 10 U/L 10 - 54 U/L [facility] Anion gap [Moles/Vol] 8 mmol/L Low 9 - 18 mmol/L [facility] AST [Catalytic activity/Vol] 9 U/L Low 14 - 40 U/L [facility] Bilirubin [Mass/Vol] 0.5 mg/dL 0.2 - 1 .3 mg/dL [facility] Calcium [Mass/Vol] 9.9 mg/dL 8.5 - 10. 2 mg/dL [facility] Chloride [Moles/Vol] 106 mmol/L High 97 - 10 5 mmol/L [facility] CO2 [Moles/Vol] 27 mmol/L 22 - 30 mmol/L [facility] Creatinine [Mass/Vol] 1.01 mg/dL 0.73 - 1.22 mg/dL [facility] GFR/1.73 sq M.predicted among non-blacks MDRD (S/P/Bld) [Vol rate/Area] 85 mL/min/{1.73_m2} - PINF [facility] Comment on above: Estimated Glomerular [...] [Mass/Vol] 89 mg/dL 74 - 99 mg/dL [facility] Comment on above: The [place] Diab[employer] Association (ADA) provides guidance for [...] Standards of Medical Care in Diabetes 2016, [place] Diabetes Association. Diabetes Care. 2016.39(Suppl 1). Interpretation and review of laboratory results Abnormal [facility] Potassium [Moles/Vol] 4.0 mmol/L 3.7 - 5.1 mmol/L [facility] Protein [Mass/Vol] 6.4 g/dL 6.3 - 8.0 g/dL [facility] Sodium [Moles/Vol] 141 mmol/L 136 - 144 mmol/L [facility] Urea nitrogen [Mass/Vol] 16 mg/dL 9 - 24 mg/dL [facility] Eosinophils/100 WBC Auto (Bl d)on 10-26-2023 Eosinophils/100 WBC (Bld) 1.5 % [facility] Erythrocyte distribution wid th Auto (RBC) [Ratio]on 10-26-2023 Erythrocyte distribution width (RBC) [Ratio] 13.8 % 11.5-15.0 [facility] Hematocrit Auto (Bld) [Volum e fraction]on 10-26-2023 Hematocrit (Bld) [Volume fraction] 42.6 % 39.0-51.0 [facility] Hemoglobin [Mass/volume] in Bloodon 10-26-2023 Hemoglobin (Bld) [Mass/Vol] 14.4 g/dL 13.0-17.0 [facility] Laboratory - Chemistry and C hemistry - challengeon 10-26-2023 Albumin [Mass/Vol] 4.3 g/dL 3.9-4.9 [facility] ALP [Catalytic activity/Vol] 75 U/L 38-113 [facility] ALT [Catalytic activity/Vol] 10 U/L 10-54 [facility] AST [Catalytic activity/Vol] 9 U/L 14-40 [facility] Bilirubin [Mass/Vol] 0.5 mg/dL 0.2-1.3 [facility] Calcium [Mass/Vol] 9.9 mg/dL 8.5-10.2 [facility] Chloride [Moles/Vol] 106 mmol/L 97-105 [facility] CO2 [Moles/Vol] 27 mmol/L 22-30 [facility] Creatinine [Mass/Vol] 1.01 mg/dL 0.73-1.22 [facility] Glucose [Mass/Vol] 89 mg/dL 74-99 [facility] Comment on above: The [place] Diab[employer] Association (ADA) provides guidance for [...] Standards of Medical Care in Diabetes 2016, [place] Diabetes Association. Diabetes Care. 2016.39(Suppl 1). Potassium [Moles/Vol] 4.0 mmol/L 3.7-5.1 [facility] Sodium [Moles/Vol] 141 mmol/L 136-144 [facility] Urea nitrogen [Mass/Vol] 16 mg/dL 9-24 [facility] - Hematology and Cell countson 10-26-2023 Eosinophils (Bld) [#/Vol] 0.13 10*3/uL <0.46 [facility] Immature granulocytes (Bld) [#/Vol] 0.03 10*3/uL <0.10 [facility] Immature granulocytes/100 WBC (Bld) 0.3 % [facility] Leukocytes [#/volume] correc mone for nucleated erythrocytes in Blood by Automated counon 10-26-2023 WBC corrected for nucl RBC Auto (Bld) [#/Vol] 8.78 k/uL 3.70-11.00 [facility] Lymphocytes Auto (Bld) [#/Vo l]on 10-26-2023 Lymphocytes (Bld) [#/Vol] 2.18 10*3/uL 1.00-4.00 [facility] Lymphocytes/100 WBC Auto (Bl d)on 10-26-2023 Lymphocytes/100 WBC (Bld) 24.8 % [facility] MCH Auto (RBC) [Entitic mass ]on 10-26-2023 MCH (RBC) [Entitic mass] 32.0 pg 26.0-34.0 [facility] MCHC Auto (RBC) [Mass/Vol]on 10-26-2023 MCHC (RBC) [Mass/Vol] 33.8 g/dL 30.5-36.0 [facility] MCV Auto (RBC) [Entitic vol] on 10-26-2023 MCV (RBC) [Entitic vol] 94.7 fL 80.0-100.0 [facility] Monocytes Auto (Bld) [#/Vol] on 10-26-2023 Monocytes (Bld) [#/Vol] 0.60 10*3/uL <0.87 [facility] Monocytes/100 WBC Auto (Bld) on 10-26-2023 Monocytes/100 WBC (Bld) 6.8 % [facility] Neutrophils Auto (Bld) [#/Vo l]on 10-26-2023 Neutrophils (Bld) [#/Vol] 5.80 10*3/uL 1.45-7.50 [facility] Neutrophils/100 WBC Auto (Bl d)on 10-26-2023 Neutrophils/100 WBC (Bld) 66.1 % [facility] No Panel Informationon 10-25 Radiology Study observation (narrative) [facility] Estimated GFR (CKD-EPI) 85 mL/min/1.73m??? >=60 [facility] Comment on above: Estimated Glomerular Filtration Rate [...] 10-26-2023 Nucleated RBC (Bld) [#/Vol] 10*3/uL <0.01 [facility] Nucleated erythrocytes [Pres ence] in Blood by Automated counton 10-26-2023 Nucleated RBC Auto Ql (Bld) 0.0 /100{WBC} [facility] Platelet mean volume Auto (B ld) [Entitic vol]on 10-26-2023 Platelet mean volume (Bld) [Entitic vol] 10.2 fL 9.0-12.7 [facility] Platelets Auto (Bld) [#/Vol] on 10-26-2023 Platelets (Bld) [#/Vol] 314 10*3/uL 150-400 [facility] Protein [Mass/volume] in Ser um or Plasmaon 10-26-2023 Protein [Mass/Vol] 6.4 g/dL 6.3-8.0 [facility] RBC Auto (Bld) [#/Vol]on RBC (Bld) [#/Vol] 4.50 10*6/uL 4.20-6.00 [facility] Serum or plasma anion gap de terminationon 10-26-2023 Anion gap [Moles/Vol] 8 mmol/L 9-18 [facility] Alanine aminotransferase [En zymatic activity/volume] in Serum or PlasmaOrdered By: Griselda aHstings on 10-09-2023 ALT [Catalytic activity/Vol] 8 U/L 7-52 [facility] Albumin [Mass/volume] in Ser um or Plasma by Bromocresol green (BCG) dye binding methoOrdered By: Griselda Hastings on 10-09-2023 Albumin BCG dye [Mass/Vol] 3.9 g/dL 3.5-5.7 [facility] Alkaline phosphatase [Enzyma tic activity/volume] in Serum or PlasmaOrdered By: Griselda Hastings on 10-09-2023 ALP [Catalytic activity/Vol] 59 U/L 34-104 [facility] Aspartate aminotransferase [ Enzymatic activity/volume] in Serum or PlasmaOrdered By: Griselda Hastings on 10-09-2023 AST [Catalytic activity/Vol] 7 U/L 13-39 [facility] Basophils Auto (Bld) [#/Vol] Ordered By: Griselda Hastings on 10-09-2023 Basophils (Bld) [#/Vol] 0.1 10*3/uL 0.0-0.2 [facility] Basophils/100 WBC Auto (Bld) Ordered By: Griselda Hastings on 10-09-2023 Basophils/100 WBC (Bld) 0.9 % . [facility] Bilirubin.total [Mass/volume ] in Serum or PlasmaOrdered By: Griselda Hastings on 10-09-2023 Bilirubin [Mass/Vol] 0.5 mg/dL 0.3-1.0 [facility] COVID-19 Detected/Not Detect edOrdered By: Griselda Hastings on 10-09-2023 SARS-CoV-2 (COVID-19) RNA JER+non-probe Ql (Nph) Not detected Not Detecte [facility] Comment on above: This is a duplicate RP2.1 COVID (PCR) result to be used for statistical tracking purpose only. Calcium [Mass/volume] in Ser um or PlasmaOrdered By: Griselda Hastings on 10-09-2023 Calcium [Mass/Vol] 9.5 mg/dL 8.6-10.3 [facility] Carbon dioxide, total [Moles /volume] in Serum or PlasmaOrdered By: Griselda Hastings on 10-09-2023 CO2 [Moles/Vol] 30.0 mmol/L 21.0-31.0 [facility] Chloride [Moles/volume] in S r[place] or PlasmaOrdered By: Griselda Hastings on 10-09-2023 Chloride [Moles/Vol] 103 mmol/L 98-107 [facility] Creatinine [Mass/volume] in Serum or PlasmaOrdered By: Griselda Hastings on 10-09-2023 Creatinine [Mass/Vol] 0.92 mg/dL 0.70-1.30 [facility] Eosinophils Auto (Bld) [#/Vo l]Ordered By: Griselda Hastings on 10-09-2023 Eosinophils (Bld) [#/Vol] 0.1 10*3/uL 0.0-0.45 [facility] Eosinophils/100 WBC Auto (Bl d)Ordered By: Griselda Hastings on 10-09-2023 Eosinophils/100 WBC (Bld) 1.0 % . [facility] Erythrocyte distribution wid th Auto (RBC) [Ratio]Ordered By: Griselda Hastings on 10-09-2023 Erythrocyte distribution width (RBC) [Ratio] 14.3 % 12.0-14.8 [facility] Globulin Calc (S) [Mass/Vol] Ordered By: Griselda Hastings on 10-09-2023 Globulin (S) [Mass/Vol] 2.0 g/dL [facility] Glucose [Mass/volume] in Ser um or PlasmaOrdered By: Griselda Hastings on 10-09-2023 Glucose [Mass/Vol] 84 mg/dL 70-100 [facility] Comment on above: ADA recommended refe rence rangeRandom Glucose Reference Range is dependent on time and content of last meal. Glucose of more than 200 mg/dL in a nonstressed, ambulatory subject supports the diagnosis of Diabetes Mellitus. Hematocrit Auto (Bld) [Volum e fraction]Ordered By: Griselda Hastings on 10-09-2023 Hematocrit (Bld) [Volume fraction] 41.9 % 38.8-50.0 [facility] Hemoglobin [Mass/volume] in BloodOrdered By: Griselda Hastings on 10-09-2023 Hemoglobin (Bld) [Mass/Vol] 14.4 g/dL 13.0-17.0 [facility] Leukocytes [#/volume] correc mone for nucleated erythrocytes in Blood by Automated counOrdered By: Griselda Hastings on 10-09-2023 WBC corrected for nucl RBC Auto (Bld) [#/Vol] 8.1 10*3/uL 4.1-10.5 [facility] Lymphocytes Auto (Bld) [#/Vo l]Ordered By: Griselda Hastings on 10-09-2023 Lymphocytes (Bld) [#/Vol] 2.7 10*3/uL 1.00-4.8 [facility] Lymphocytes/100 WBC Auto (Bl d)Ordered By: Griselda Hastings on 10-09-2023 Lymphocytes/100 WBC (Bld) 33.6 % . [facility] MCH Auto (RBC) [Entitic mass ]Ordered By: Griselda Hastings on 10-09-2023 MCH (RBC) [Entitic mass] 32.7 pg 27.5-35.2 [facility] MCHC Auto (RBC) [Mass/Vol]Or dered By: Griselda Hastings on 10-09-2023 MCHC (RBC) [Mass/Vol] 34.4 g/dL 32.5-35.6 [facility] MCV Auto (RBC) [Entitic vol] Ordered By: Griselda Hastings on 10-09-2023 MCV (RBC) [Entitic vol] 94.8 fL 83.5-101 [facility] Monocytes Auto (Bld) [#/Vol] Ordered By: Griselda Hastings on 10-09-2023 Monocytes (Bld) [#/Vol] 0.6 10*3/uL 0.0-0.8 [facility] Monocytes/100 WBC Auto (Bld) Ordered By: Griselda Hastings on 10-09-2023 Monocytes/100 WBC (Bld) 7.5 % . [facility] Neutrophils Auto (Bld) [#/Vo l]Ordered By: Griselda Hastings on 10-09-2023 Neutrophils (Bld) [#/Vol] 4.6 10*3/uL 1.8-7.7 [facility] Neutrophils/100 WBC Auto (Bl d)Ordered By: Griselda Hastings on 10-09-2023 Neutrophils/100 WBC (Bld) 57.0 % . [facility] No Panel InformationOrdered By: Griselda Hastings on 10-09-2023 Estimated GFR (CKD-EPI) > 60.0 mL/Min [facility] Creatinine Clearance (Chem N/A [facility] Nucleated erythrocytes [Pres ence] in Blood by Automated countOrdered By: Griselda Hastings on 10-09-2023 Nucleated RBC Auto Ql (Bld) 0.2 /100{WBC} 0-0.5 [facility] Platelet mean volume Auto (B ld) [Entitic vol]Ordered By: Griselda Hastings on 10-09-2023 Platelet mean volume (Bld) [Entitic vol] 8.3 fL 6.6-10.1 [facility] Platelets Auto (Bld) [#/Vol] Ordered By: Griselda Hastings on 10-09-2023 Platelets (Bld) [#/Vol] 349 10*3/uL 150-450 [facility] Potassium [Moles/volume] in Serum or PlasmaOrdered By: Griselda Hastings on 10-09-2023 Potassium [Moles/Vol] 4.5 mmol/L 3.5-5.1 [facility] Protein [Mass/volume] in Ser um or PlasmaOrdered By: Griselda Hastings on 10-09-2023 Protein [Mass/Vol] 5.9 g/dL 6.4-8.9 [facility] RBC Auto (Bld) [#/Vol]Ordere d By: Griselda Hastings on 10-09-2023 RBC (Bld) [#/Vol] 4.42 10*6/uL 3.90-5.60 [facility] Respiratory pathogens DNA an d RNA panel - Nasopharynx by JER with non-probe detectionOrdered By: Griselda Hastings on 10-09-2023 Respiratory pathogens DNA and RNA panel JER+non-probe (Nph) [facility] Serum or plasma albumin/glob ulin mass ratioOrdered By: Griselda Hastings on 10-09-2023 Albumin/Globulin [Mass ratio] 2.0 {ratio} [facility] Serum or plasma anion gap de terminationOrdered By: Griselda Hastings on 10-09-2023 Anion gap [Moles/Vol] 9.5 mmol/L 6.0-15.0 [facility] Sodium [Moles/volume] in Ser um or PlasmaOrdered By: Griselda Hastings on 10-09-2023 Sodium [Moles/Vol] 138 mmol/L 136-145 [facility] Urea nitrogen [Mass/volume] in Serum or PlasmaOrdered By: Grisleda Hastings on 10-09-2023 Urea nitrogen [Mass/Vol] 14 mg/dL 7-25 [facility] WBC Auto (Bld) [#/Vol]Ordere d By: Griselda Hastings on 10-09-2023 WBC (Bld) [#/Vol] 8.1 10*3/uL 4.1-10.5 [facility] Study Interpretation of outs jeffrey [...] Vitor Hickman MD 08/01/23 Final result Normal [facility] MRI CERVICAL SPINE WO CONTRA STon [...] Vitor Hickman MD 08/01/23 Final result Normal [facility] COVID + FLU Quick Testingon 07-02-2023 SARS-CoV-2 (COVID-19) RNA JER+probe Ql (Unsp spec) Negative [facility] Other COVID + FLU Quick Testing Negative EXPO Other Quick Strepon 07-02-2023 S. pyogenes Org specific cx Ql (Throat) Negative [facility] [employer] Other Quick Strep EXPO Other RSVon 07-02-2023 RSV Ag IA Ql (Unsp spec) Negative [facility] [employer] Other Creatinine [Mass/volume] in Serum or PlasmaOrdered By: Ruddy Harvey on 05-07-2023 Creatinine [Mass/Vol] 0.91 mg/dL 0.70-1.30 [facility] No Panel InformationOrdered By: Ruddy Harvey on 05-07-2023 Estimated GFR (CKD-EPI) > 60.0 mL/Min [facility] Creatinine Clearance (Chem 83.52 [facility] Urea nitrogen [Mass/volume] in Serum or PlasmaOrdered By: Ruddy Harvey on 05-07-2023 Urea nitrogen [Mass/Vol] 15 mg/dL 7-25 [facility] Creatinine (Bld) [Mass/Vol]O rdered By: Nikole Mota on 05-04-2023 Creatinine [Mass/Vol] 0.9 mg/dL 0.6-1.3 [facility] Comment on above: ER/ESD physician is notified/shown all ISTAT results.Critical values may be confirmed by laboratory testing ifdeemed necessary by ER attending doctor. No Panel InformationOrdered By: Nikole Mota on 05-04-2023 Bedside Estimated GFR (eGFR) > 60.0 [facility] Alanine aminotransferase [En zymatic activity/volume] in Serum or PlasmaOrdered By: Griselda Hastings on 03-30-2023 ALT [Catalytic activity/Vol] 10 U/L 7-52 [facility] Albumin [Mass/volume] in Ser um or Plasma by Bromocresol green (BCG) dye binding methoOrdered By: Griselda Hastings on 03-30-2023 Albumin BCG dye [Mass/Vol] 4.2 g/dL 3.5-5.7 [facility] Alkaline phosphatase [Enzyma tic activity/volume] in Serum or PlasmaOrdered By: Griselda Hastings on 03-30-2023 ALP [Catalytic activity/Vol] 61 U/L 34-104 [facility] Aspartate aminotransferase [ Enzymatic activity/volume] in Serum or PlasmaOrdered By: Griselda Hastings on 03-30-2023 AST [Catalytic activity/Vol] 8 U/L 13-39 [facility] Basophils Auto (Bld) [#/Vol] Ordered By: Griselda Hastings on 03-30-2023 Basophils (Bld) [#/Vol] 0.1 10*3/uL 0.0-0.2 [facility] Basophils/100 WBC Auto (Bld) Ordered By: Griselda Hastings on 03-30-2023 Basophils/100 WBC (Bld) 0.8 % . [facility] Bilirubin.total [Mass/volume ] in Serum or PlasmaOrdered By: Griselda Hastings on 03-30-2023 Bilirubin [Mass/Vol] 0.9 mg/dL 0.3-1.0 [facility] Calcium [Mass/volume] in Ser um or PlasmaOrdered By: Griselda Hastings on 03-30-2023 Calcium [Mass/Vol] 9.1 mg/dL 8.6-10.3 [facility] Carbon dioxide, total [Moles /volume] in Serum or PlasmaOrdered By: Griselda Hastings on 03-30-2023 CO2 [Moles/Vol] 27.0 mmol/L 21.0-31.0 [facility] Chloride [Moles/volume] in S rica or PlasmaOrdered By: Griselda Hastings on 03-30-2023 Chloride [Moles/Vol] 103 mmol/L 98-107 [facility] Cholesterol [Mass/volume] in Serum or PlasmaOrdered By: Griselda Hastings on 03-30-2023 Cholesterol [Mass/Vol] 224 mg/dL 140-200 [facility] Comment on above: Chol less than 200 m g/dl low riskChol 201-239 mg/dl borderline riskChol 240 mg/dl and greater high risk Cholesterol in LDL Calc [Mas s/Vol]Ordered By: Griselda Hastings on 03-30-2023 Cholesterol in LDL [Mass/Vol] 148 mg/dL 0-100 [facility] Comment on above: LDL ATP III CLASSIFI CATIONLDL less than 100 mg/dL OptimalLDL 100-129 mg/dL Near or above optimalLDL 130-159 mg/dL Borderline highLDL 160-189 mg/dL HighLDL greater than 189 mg/dL Very high Cholesterol in VLDL Calc [Ma ss/Vol]Ordered By: Griselda Hastings on 03-30-2023 Cholesterol in VLDL [Mass/Vol] 31 mg/dL [facility] Creatinine [Mass/volume] in Serum or PlasmaOrdered By: Griselda Hastings on 03-30-2023 Creatinine [Mass/Vol] 0.82 mg/dL 0.70-1.30 [facility] Eosinophils Auto (Bld) [#/Vo l]Ordered By: Griselda Hastings on 03-30-2023 Eosinophils (Bld) [#/Vol] 0.1 10*3/uL 0.0-0.45 [facility] Eosinophils/100 WBC Auto (Bl d)Ordered By: Griselda Hastings on 03-30-2023 Eosinophils/100 WBC (Bld) 0.6 % . [facility] Erythrocyte distribution wid th Auto (RBC) [Ratio]Ordered By: Griselda Hastings on 03-30-2023 Erythrocyte distribution width (RBC) [Ratio] 14.1 % 12.0-14.8 [facility] Globulin Calc (S) [Mass/Vol] Ordered By: Griselda Hastings on 03-30-2023 Globulin (S) [Mass/Vol] 1.9 g/dL [facility] Glucose [Mass/volume] in Ser um or PlasmaOrdered By: Griselda Hastings on 03-30-2023 Glucose [Mass/Vol] 83 mg/dL 70-100 [facility] Comment on above: ADA recommended refe rence rangeRandom Glucose Reference Range is dependent on time and content of last meal. Glucose of more than 200 mg/dL in a nonstressed, ambulatory subject supports the diagnosis of Diabetes Mellitus. Hematocrit Auto (Bld) [Volum e fraction]Ordered By: Griselda Hastings on 03-30-2023 Hematocrit (Bld) [Volume fraction] 41.4 % 38.8-50.0 [facility] Hemoglobin [Mass/volume] in BloodOrdered By: Griselda Hastings on 03-30-2023 Hemoglobin (Bld) [Mass/Vol] 14.4 g/dL 13.0-17.0 [facility] Leukocytes [#/volume] correc mone for nucleated erythrocytes in Blood by Automated counOrdered By: Griselda Hastings on 03-30-2023 WBC corrected for nucl RBC Auto (Bld) [#/Vol] 10.0 10*3/uL 4.1-10.5 [facility] Lymphocytes Auto (Bld) [#/Vo l]Ordered By: Griselda Hastings on 03-30-2023 Lymphocytes (Bld) [#/Vol] 1.7 10*3/uL 1.00-4.8 [facility] Lymphocytes/100 WBC Auto (Bl d)Ordered By: Griselda Hastings on 03-30-2023 Lymphocytes/100 WBC (Bld) 16.8 % . [facility] MCH Auto (RBC) [Entitic mass ]Ordered By: Griselda Hastings on 03-30-2023 MCH (RBC) [Entitic mass] 33.9 pg 27.5-35.2 [facility] MCHC Auto (RBC) [Mass/Vol]Or dered By: Griselda Hastings on 03-30-2023 MCHC (RBC) [Mass/Vol] 34.9 g/dL 32.5-35.6 [facility] MCV Auto (RBC) [Entitic vol] Ordered By: Griselda Hastings on 03-30-2023 MCV (RBC) [Entitic vol] 97.1 fL 83.5-101 [facility] Monocytes Auto (Bld) [#/Vol] Ordered By: Griselda Hastings on 03-30-2023 Monocytes (Bld) [#/Vol] 0.8 10*3/uL 0.0-0.8 [facility] Monocytes/100 WBC Auto (Bld) Ordered By: Griselda Hastings on 03-30-2023 Monocytes/100 WBC (Bld) 8.0 % . [facility] Neutrophils Auto (Bld) [#/Vo l]Ordered By: Griselda Hastigns on 03-30-2023 Neutrophils (Bld) [#/Vol] 7.3 10*3/uL 1.8-7.7 [facility] Neutrophils/100 WBC Auto (Bl d)Ordered By: Griselda Hastings on 03-30-2023 Neutrophils/100 WBC (Bld) 73.8 % . [facility] No Panel InformationOrdered By: Griselda Hastings on 03-30-2023 Estimated GFR (CKD-EPI) > 60.0 mL/Min [facility] Creatinine Clearance (Chem N/A [facility] Nucleated erythrocytes [Pres ence] in Blood by Automated countOrdered By: Griselda Hastings on 03-30-2023 Nucleated RBC Auto Ql (Bld) 0.1 /100{WBC} 0-0.5 [facility] Platelet mean volume Auto (B ld) [Entitic vol]Ordered By: Griselda Hastings on 03-30-2023 Platelet mean volume (Bld) [Entitic vol] 9.2 fL 6.6-10.1 [facility] Platelets Auto (Bld) [#/Vol] Ordered By: Griselda Hastings on 03-30-2023 Platelets (Bld) [#/Vol] 221 10*3/uL 150-450 [facility] Potassium [Moles/volume] in Serum or PlasmaOrdered By: Griselda Hastings on 03-30-2023 Potassium [Moles/Vol] 4.1 mmol/L 3.5-5.1 [facility] Protein [Mass/volume] in Ser um or PlasmaOrdered By: Griselda Hastings on 03-30-2023 Protein [Mass/Vol] 6.1 g/dL 6.4-8.9 [facility] RBC Auto (Bld) [#/Vol]Ordere d By: Griselda Hastings on 03-30-2023 RBC (Bld) [#/Vol] 4.26 10*6/uL 3.90-5.60 [facility] Serum or plasma albumin/glob ulin mass ratioOrdered By: Griselda Hastings on 03-30-2023 Albumin/Globulin [Mass ratio] 2.2 {ratio} [facility] Serum or plasma anion gap de terminationOrdered By: Griselda Hastings on 03-30-2023 Anion gap [Moles/Vol] 12.1 mmol/L 6.0-15.0 [facility] Serum or plasma high density lipoprotein (HDL) cholesterol measurementOrdered By: Griselda Hastings on 03-30-2023 Cholesterol in HDL [Mass/Vol] 44 mg/dL 23-92 [facility] Comment on above: HDL CHOL ATP-III CLA SSIFICATION Cardiovascular RiskHDL > or equal to 60 mg/dL LOWHDL < 40 mg/dL HIGH Serum or plasma total choles terol/high density lipoprotein (HDL) cholesterol mass ratOrdered By: Griselda Hastings on 03-30-2023 Cholesterol.total/Chol esterol in HDL [Mass ratio] 5.1 {ratio} <5.0 [facility] Sodium [Moles/volume] in Ser um or PlasmaOrdered By: Griselda Hastings on 03-30-2023 Sodium [Moles/Vol] 138 mmol/L 136-145 [facility] Thyrotropin [Units/volume] i n Serum or PlasmaOrdered By: Griselda Hastings on 03-30-2023 TSH Qn 0.93 m[IU]/L 0.45-5.33 [facility] Triglyceride [Mass/volume] i n Serum or PlasmaOrdered By: Griselda Hastings on 03-30-2023 Triglyceride [Mass/Vol] 159 mg/dL 0-149 [facility] Comment on above: TRIG ATP III CLASSIF ICATIONTRIG less than 150 mg/dL NormalTRIG 150-199 mg/dL Borderline highTRIG 200-500 mg/dL High TRIG greater than 500 mg/dL Very highStandard traceable to the Center for Disease Conrtrol and Prevention (CDC) test method. Urea nitrogen [Mass/volume] in Serum or PlasmaOrdered By: Griselda Hastings on 03-30-2023 Urea nitrogen [Mass/Vol] 10 mg/dL 7-25 [facility] WBC Auto (Bld) [#/Vol]Ordere d By: Griselda Hastings on 03-30-2023 WBC (Bld) [#/Vol] 10.0 10*3/uL 4.1-10.5 [facility] COVID-19 SOFIAOrdered By: Brandyn Gaytan on 02-26-2023 SARS-CoV+SARS-CoV-2 (COVID-19) Ag IA.rapid Ql (Resp) Negative Negative [facility] Comment on above: This is a duplicate Anna SARS Antigen (JAMILA) result to be used for statistical tracking purpose only. No Panel InformationOrdered By: Daniel Gaytan on 02-26-2023 SARS Antigen (LFIA) [facility] SARS Antigen (LFIA) [facility] No Panel Informationon 12-28 XR Pain Management C ase (Reference Range: not available) *FINAL Date of Service: 12/28/2022 08:49 Adm #: [id number] Reading Dr:RICARDO CAPPS Signoff Dr: RICARDO CAPPS PROCEDURE: PAIN MANAGEMENT CASE - BXR 0999 REASON FOR EXAM: SPONDYLOSIS W/O MYELOPATHY OR RADICULOPATHY, CERVICAL REGION RESULT: Patient Name: SHANTEL MELENDEZ STUDY: PAIN MANAGEMENT CASE INDICATION: SPONDYLOSIS W/O MYELOPATHY OR RADICULOPATHY, CERVICAL REGION COMPARISON: None. ACCESSION NUMBER(S): [id number] ORDERING CLINICIAN: LIMA JOSEPH TECHNIQUE: See below: FINDINGS: Fluoroscopy was provided during therapeutic puncture in the region of the cervical spine for pain management. Total fluoroscopy time: 14.56mgy, images: 4. IMPRESSION: Fluoroscopy for pain management. Dictation workstation: [id number] Original Interpreting Physician: RICARDO CAPPS M.D. Original Transcribed by/Date: MMODAL Dec 28 2022 6:14A Original Electronically Signed by/Date: RICARDO CAPPS M.D. Dec 28 2022 9:04A Addendum Interpreting Physician: Addendum Transcribed by/Date: NO ADDENDUM Addendum Electronically Signed by/Date: [facility] [place] [place] Quick Strepon 12-05-2022 S. pyogenes Org specific cx Ql (Throat) Negative EXPO Other Quick Strep EXPO Other CT Chest W contrast Tristin IMPRESSION: [...] any questions regarding this interpretation, please call [phone]. If you are unable to reach us at the number above, please feel free to contact [facility] at [phone]. DIVISION OF RADIOLOGY * * *Final Report* * * DATE OF EXAM: Oct 27 2022 11:44AM [facility] 0539 - CT CHEST W IVCON / [...] No abnormality in the imaged upper abdomen. Operation Specialist (topogram) images: No additional findings. DIVISION OF RADIOLOGY Provider, [facility] - 10/30/2022 * * *Final Report* * * DATE OF EXAM: Oct 27 2022 11:44AM [facility] 0539 - CT CHEST W IVCON / [...] No abnormality in the imaged upper abdomen. Operation Specialist (topogram) images: No additional findings. IMPRESSION IMPRESSION: [...] any questions regarding this interpretation, please call [phone]. If you are unable to reach us at the number above, please feel free to contact [facility] at [phone]. [facility] CBC W Auto Differential pane l (Bld)on 10-27-2022 Basophils (Bld) [#/Vol] 0.03 10*3/uL [facility] Basophils/100 WBC (Bld) 0.3 % [facility] Differential cell count method Nom (Bld) Auto [facility] Eosinophils (Bld) [#/Vol] 0.06 10*3/uL [facility] Eosinophils/100 WBC (Bld) 0.7 % [facility] Erythrocyte distribution width (RBC) [Ratio] 14.0 % 11.5 - 15.0 % [facility] Hematocrit (Bld) [Volume fraction] 43.5 % 39.0 - 51.0 % [facility] Hemoglobin (Bld) [Mass/Vol] 14.5 g/dL 13.0 - 17.0 g/dL [facility] Immature granulocytes (Bld) [#/Vol] 0.03 10*3/uL [facility] Immature granulocytes/100 WBC (Bld) 0.3 % [facility] Lymphocytes (Bld) [#/Vol] 2.00 10*3/uL [facility] Lymphocytes/100 WBC (Bld) 21.9 % [facility] MCH (RBC) [Entitic mass] 31.3 pg 26.0 - 34.0 pg [facility] MCHC (RBC) [Mass/Vol] 33.3 g/dL 30.5 - 36.0 g/dL [facility] MCV (RBC) [Entitic vol] 93.8 fL 80.0 - 100.0 fL [facility] Monocytes (Bld) [#/Vol] 0.53 10*3/uL NINF [facility] Monocytes/100 WBC (Bld) 5.8 % [facility] Neutrophils (Bld) [#/Vol] 6.47 10*3/uL [facility] Neutrophils/100 WBC (Bld) 71.0 % [facility] Nucleated RBC (Bld) [#/Vol] NINF [facility] Nucleated RBC/100 WBC (Bld) [Ratio] 0.0 % /100 WBC [facility] Platelet mean volume (Bld) [Entitic vol] 10.8 fL 9.0 - 12.7 fL [facility] Platelets (Bld) [#/Vol] 253 10*3/uL [facility] RBC (Bld) [#/Vol] 4.64 10*6/uL 4.20 - 6.00 m/uL [facility] WBC (Bld) [#/Vol] 9.12 10*3/uL [facility] CT Neck W contrast Tristin 05-1 IMPRESSION: Primary NIRADS Category: 1. Expected post-treatment changes in the neck without evidence of recurrent disease in the primary site. Neck NIRADS Category: 1. No evidence of abnormal lymph nodes. [email or web address] Transcribe Date/Time: Oct 27 2022 11:56A Dictated by: KALPANA HAMPTON MD This examination was interpreted and the report reviewed and electronically signed by: KALPANA HAMPTON MD on Oct 27 2022 12:14PM EST Thank you for allowing us to participate in the care of your patient. Should there be any questions regarding this interpretation, please call [phone]. If you are unable to reach us at the number above, please feel free to contact [facility]Radiology at [phone]. 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 Parotid and submandibular spaces are normal. Signing Agent spaces appear normal. Infrahyoid Neck: Hypopharynx, larynx, [...] consolidation or mass. 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 Parotid and submandibular spaces are normal. Signing Agent spaces appear normal. Infrahyoid Neck: Hypopharynx, larynx, [...] evidence of abnormal lymph nodes. [email or web address] Transcribe Date/Time: Oct 27 2022 11:56A Dictated by: KALPANA HAMPTON MD This examination was interpreted and the report reviewed and electronically signed by: KALPANA HAMPTON MD on Oct 27 2022 12:14PM EST Thank you for allowing us to participate in the care of your patient. Should there be any questions regarding this interpretation, please call [phone]. If you are unable to reach us at the number above, please feel free to contact [facility]iology at [phone]. [facility] CT Neck W contrast IVOrdered By: [facility]cf Provider on 10-27-2022 [facility] Comprehensive metabolic 2000 panelOrdered By: Kelly Goodson on 10-27-2022 Albumin [Mass/Vol] 4.3 g/dL 3.9 - 4.9 g/dL [facility] ALP [Catalytic activity/Vol] 89 U/L 38 - 113 U/L [facility] ALT [Catalytic activity/Vol] 7 U/L Low 10 - 54 U/L [facility] Anion gap [Moles/Vol] 10 mmol/L 9 - 18 mmol/L [facility] AST [Catalytic activity/Vol] 8 U/L Low 14 - 40 U/L [facility] Bilirubin [Mass/Vol] 0.3 mg/dL 0.2 - 1 .3 mg/dL [facility] Calcium [Mass/Vol] 9.6 mg/dL 8.5 - 10. 2 mg/dL [facility] Chloride [Moles/Vol] 104 mmol/L 97 - 10 5 mmol/L [facility] CO2 [Moles/Vol] 27 mmol/L 22 - 30 mmol/L [facility] Creatinine [Mass/Vol] 0.93 mg/dL 0.73 - 1.22 mg/dL [facility] GFR/1.73 sq M.predicted among non-blacks MDRD (S/P/Bld) [Vol rate/Area] 95 mL/min/{1.73_m2} - PINF [facility] Comment on above: Estimated Glomerular [...] [Mass/Vol] 98 mg/dL 74 - 99 mg/dL [facility] Comment on above: The [place] Diab[employer] s Association (ADA) provides guidance for [...] Standards of Medical Care in Diabetes 2016, [place] Diabetes Association. Diabetes Care. 2016.39(Suppl 1). Interpretation and review of laboratory results Abnormal [facility] Potassium [Moles/Vol] 4.5 mmol/L 3.7 - 5.1 mmol/L [facility] Protein [Mass/Vol] 6.6 g/dL 6.3 - 8.0 g/dL [facility] Sodium [Moles/Vol] 141 mmol/L 136 - 144 mmol/L [facility] Urea nitrogen [Mass/Vol] 12 mg/dL 9 - 24 mg/dL [facility] No Panel Informationon 10-27 Radiology Study observation (narrative) [facility] Alanine aminotransferase [En zymatic activity/volume] in Serum or PlasmaOrdered By: Griselda Hastings on 10-24-2022 ALT [Catalytic activity/Vol] 7 U/L 7-52 [facility] Albumin [Mass/volume] in Ser um or Plasma by Bromocresol green (BCG) dye binding methoOrdered By: Griselda Hastings on 10-24-2022 Albumin BCG dye [Mass/Vol] 4.2 g/dL 3.5-5.7 [facility] Alkaline phosphatase [Enzyma tic activity/volume] in Serum or PlasmaOrdered By: Griselda Hastings on 10-24-2022 ALP [Catalytic activity/Vol] 76 U/L 34-104 [facility] Aspartate aminotransferase [ Enzymatic activity/volume] in Serum or PlasmaOrdered By: Griselda Hastings on 10-24-2022 AST [Catalytic activity/Vol] 10 U/L 13-39 [facility] Basophils Auto (Bld) [#/Vol] Ordered By: Griselda Hastings on 10-24-2022 Basophils (Bld) [#/Vol] 0.0 10*3/uL 0.0-0.2 [facility] Basophils/100 WBC Auto (Bld) Ordered By: Griselda Hastings on 10-24-2022 Basophils/100 WBC (Bld) 0.9 % . [facility] Bilirubin.total [Mass/volume ] in Serum or PlasmaOrdered By: Griselda Hastings on 10-24-2022 Bilirubin [Mass/Vol] 0.4 mg/dL 0.3-1.0 [facility] Calcium [Mass/volume] in Ser um or PlasmaOrdered By: Griselda Hastings on 10-24-2022 Calcium [Mass/Vol] 9.1 mg/dL 8.6-10.3 [facility] Carbon dioxide, total [Moles /volume] in Serum or PlasmaOrdered By: Griselda Hastings on 10-24-2022 CO2 [Moles/Vol] 28.3 mmol/L 21.0-31.0 [facility] Chloride [Moles/volume] in S rica or PlasmaOrdered By: Griselda Hastings on 10-24-2022 Chloride [Moles/Vol] 105 mmol/L 98-107 [facility] Cholesterol [Mass/volume] in Serum or PlasmaOrdered By: Griselda Hastings on 10-24-2022 Cholesterol [Mass/Vol] 240 mg/dL 140-200 [facility] Comment on above: Chol less than 200 m g/dl low riskChol 201-239 mg/dl borderline riskChol 240 mg/dl and greater high risk Cholesterol in LDL Calc [Mas s/Vol]Ordered By: Griselda Hastings on 10-24-2022 Cholesterol in LDL [Mass/Vol] 169 mg/dL 0-100 [facility] Comment on above: LDL ATP III CLASSIFI CATIONLDL less than 100 mg/dL OptimalLDL 100-129 mg/dL Near or above optimalLDL 130-159 mg/dL Borderline highLDL 160-189 mg/dL HighLDL greater than 189 mg/dL Very high Cholesterol in VLDL Calc [Ma ss/Vol]Ordered By: Griselda Hastings on 10-24-2022 Cholesterol in VLDL [Mass/Vol] 35 mg/dL [facility] Creatinine [Mass/volume] in Serum or PlasmaOrdered By: Griselda Hastings on 10-24-2022 Creatinine [Mass/Vol] 0.88 mg/dL 0.70-1.30 [facility] Eosinophils Auto (Bld) [#/Vo l]Ordered By: Griselda Hastings on 10-24-2022 Eosinophils (Bld) [#/Vol] 0.1 10*3/uL 0.0-0.45 [facility] Eosinophils/100 WBC Auto (Bl d)Ordered By: Griselda Hastings on 10-24-2022 Eosinophils/100 WBC (Bld) 2.0 % . [facility] Erythrocyte distribution wid th Auto (RBC) [Ratio]Ordered By: Griselda Hastings on 10-24-2022 Erythrocyte distribution width (RBC) [Ratio] 14.7 % 12.0-14.8 [facility] Globulin Calc (S) [Mass/Vol] Ordered By: Griselda Hastings on 10-24-2022 Globulin (S) [Mass/Vol] 2.1 g/dL [facility] Glucose [Mass/volume] in Ser um or PlasmaOrdered By: Griselda Hastings on 10-24-2022 Glucose [Mass/Vol] 82 mg/dL 70-100 [facility] Comment on above: ADA recommended refe rence rangeRandom Glucose Reference Range is dependent on time and content of last meal. Glucose of more than 200 mg/dL in a nonstressed, ambulatory subject supports the diagnosis of Diabetes Mellitus. Hematocrit Auto (Bld) [Volum e fraction]Ordered By: Griselda Hastings on 10-24-2022 Hematocrit (Bld) [Volume fraction] 43.4 % 38.8-50.0 [facility] Hemoglobin [Mass/volume] in BloodOrdered By: Griselda Hastings on 10-24-2022 Hemoglobin (Bld) [Mass/Vol] 14.5 g/dL 13.0-17.0 [facility] Leukocytes [#/volume] correc mone for nucleated erythrocytes in Blood by Automated counOrdered By: Griselda Hastings on 10-24-2022 WBC corrected for nucl RBC Auto (Bld) [#/Vol] 5.0 10*3/uL 4.1-10.5 [facility] Lymphocytes Auto (Bld) [#/Vo l]Ordered By: Griselda Hastings on 10-24-2022 Lymphocytes (Bld) [#/Vol] 2.0 10*3/uL 1.00-4.8 [facility] Lymphocytes/100 WBC Auto (Bl d)Ordered By: Griselda Hastings on 10-24-2022 Lymphocytes/100 WBC (Bld) 39.8 % . [facility] MCH Auto (RBC) [Entitic mass ]Ordered By: Griselda Hastings on 10-24-2022 MCH (RBC) [Entitic mass] 31.5 pg 27.5-35.2 [facility] MCHC Auto (RBC) [Mass/Vol]Or dered By: Griselda Hastings on 10-24-2022 MCHC (RBC) [Mass/Vol] 33.5 g/dL 32.5-35.6 [facility] MCV Auto (RBC) [Entitic vol] Ordered By: Griselda Hastings on 10-24-2022 MCV (RBC) [Entitic vol] 94.0 fL 83.5-101 [facility] Monocytes Auto (Bld) [#/Vol] Ordered By: Griselda Hastings on 10-24-2022 Monocytes (Bld) [#/Vol] 0.3 10*3/uL 0.0-0.8 [facility] Monocytes/100 WBC Auto (Bld) Ordered By: Griselda Hastings on 10-24-2022 Monocytes/100 WBC (Bld) 5.4 % . [facility] Neutrophils Auto (Bld) [#/Vo l]Ordered By: Griselda Hastings on 10-24-2022 Neutrophils (Bld) [#/Vol] 2.6 10*3/uL 1.8-7.7 [facility] Neutrophils/100 WBC Auto (Bl d)Ordered By: Griselda Hastings on 10-24-2022 Neutrophils/100 WBC (Bld) 51.9 % . [facility] No Panel InformationOrdered By: Griselda Hastings on 10-24-2022 Estimated GFR (CKD-EPI) > 60.0 mL/Min [facility] Creatinine Clearance (Chem N/A [facility] Nucleated erythrocytes [Pres ence] in Blood by Automated countOrdered By: Griselda Hastings on 10-24-2022 Nucleated RBC Auto Ql (Bld) 0.1 /100{WBC} 0-0.5 [facility] Platelet mean volume Auto (B ld) [Entitic vol]Ordered By: Griselda Hastings on 10-24-2022 Platelet mean volume (Bld) [Entitic vol] 9.6 fL 6.6-10.1 [facility] Platelets Auto (Bld) [#/Vol] Ordered By: Griselda Hastings on 10-24-2022 Platelets (Bld) [#/Vol] 247 10*3/uL 150-450 [facility] Potassium [Moles/volume] in Serum or PlasmaOrdered By: Griselda Hastings on 10-24-2022 Potassium [Moles/Vol] 4.0 mmol/L 3.5-5.1 [facility] Prostate specific Ag [Mass/v olume] in Serum or PlasmaOrdered By: Griselda Hastings on 10-24-2022 Prostate specific Ag [Mass/Vol] 0.370 ng/mL 0.000-4.00 0 [facility] Protein [Mass/volume] in Ser um or PlasmaOrdered By: Griselda Hastings on 10-24-2022 Protein [Mass/Vol] 6.3 g/dL 6.4-8.9 [facility] RBC Auto (Bld) [#/Vol]Ordere d By: Griselda Hastings on 10-24-2022 RBC (Bld) [#/Vol] 4.61 10*6/uL 3.90-5.60 [facility] Serum or plasma albumin/glob ulin mass ratioOrdered By: Griselda Hastings on 10-24-2022 Albumin/Globulin [Mass ratio] 2.0 {ratio} [facility] Serum or plasma anion gap de terminationOrdered By: Griselda Hastings on 10-24-2022 Anion gap [Moles/Vol] 11.7 mmol/L 6.0-15.0 [facility] Serum or plasma high density lipoprotein (HDL) cholesterol measurementOrdered By: Griselda Hastings on 10-24-2022 Cholesterol in HDL [Mass/Vol] 36 mg/dL 29-71 [facility] Comment on above: HDL CHOL ATP-III CLA SSIFICATION Cardiovascular RiskHDL > or equal to 60 mg/dL LOWHDL < 40 mg/dL HIGH Serum or plasma total choles terol/high density lipoprotein (HDL) cholesterol mass ratOrdered By: Griselda Hastings on 10-24-2022 Cholesterol.total/Chol esterol in HDL [Mass ratio] 6.7 {ratio} <5.0 [facility] Sodium [Moles/volume] in Ser um or PlasmaOrdered By: Griselda Hastings on 10-24-2022 Sodium [Moles/Vol] 141 mmol/L 136-145 [facility] Thyrotropin [Units/volume] i n Serum or PlasmaOrdered By: Griselda Hastings on 10-24-2022 TSH Qn 1.26 m[IU]/L 0.45-5.33 [facility] Triglyceride [Mass/volume] i n Serum or PlasmaOrdered By: Griselda Hastings on 10-24-2022 Triglyceride [Mass/Vol] 175 mg/dL 0-149 [facility] Comment on above: TRIG ATP III CLASSIF ICATIONTRIG less than 150 mg/dL NormalTRIG 150-199 mg/dL Borderline highTRIG 200-500 mg/dL High TRIG greater than 500 mg/dL Very highStandard traceable to the Center for Disease Conrtrol and Prevention (CDC) test method. Urea nitrogen [Mass/volume] in Serum or PlasmaOrdered By: Griselda Hastings on 10-24-2022 Urea nitrogen [Mass/Vol] 15 mg/dL 7-25 [facility] WBC Auto (Bld) [#/Vol]Ordere d By: Griselda Hastings on 10-24-2022 WBC (Bld) [#/Vol] 5.0 10*3/uL 4.1-10.5 [facility] BRIEF OP NOTon 09-28-2022 BRIEF OP NOT HNO ID: [id number] Author: Flores Cat APRN.CNP Service: Interventional Radiology Author Type: Nurse Practitioner Type: Brief Op Note Filed: 09/28/2022 3:14 PM Note Text: BRIEF OPERATIVE / PROCEDURE NOTE LOG ID: [id number] SURGERY/PROCEDURE DATE: 09/28/2022 INCISION/PROCEDURE START TIME: 1:58 PM INCISION CLOSE/PROCEDURE END TIME: 2:27 PM SURGEON(S)/PROCEDURALIST( S) AND DIRECTOR BEHAVIORAL HEALTH(S): Surgeon(s) and Role: * Flores Cat APRN.IP PARALEGAL - Primary No Additional Staff SURGERY/PROCEDURE(S): LP [...] DIAGNOSIS: Same as Preop SIGNATURE: Flores Cat APRN.IP PARALEGAL PATIENT NAME: Shantel Melendez DATE: September 28, 2022 TIME: 3:10 PM [facility] IR LUMBAR PUNCTURE DIAGon IR LUMBAR [...] guidance was performed in conjunction with the hotel maintenance technician. Plane A, Air Kerma: 20.0 mGy Dose Area Product (DAP): 65230.1 mGy*cm2 Fluoro time: 3:54 min: sec Post-Procedure: [...] procedure was performed by: Flores Cat APRN.CNP Mid Level Project Manager: HARPER Transcribe Date/Time: Sep 28 2022 3:15P Dictated by : FLORES CTA CNP This examination was interpreted and the report reviewed and electronically signed by: FLORES CAT CNP on Sep 28 2022 3:22PM EST [id number] [facility] NURSING PROGon 09-28-2022 NURSING PROG HNO ID: [id number] Author: Court Magana RN Service: Nursing Author [...] Provider Electronically Signed By: Shellieluisito Magana Normal [facility] MRI BRAIN WO/W IVCONon 09-22 [facility] COVID + FLU Quick Testingon 08-01-2022 SARS-CoV-2 (COVID-19) RNA JER+probe Ql (Unsp spec) Negative [facility] Other COVID + FLU Quick Testing neagative [facility] [employer] Other COVID + FLU Quick Testing Negative EXPO Other RSVon 08-01-2022 RSV Ag IA Ql (Unsp spec) Positive EXPO Other Cerebrospinal fluid post-valdez trifugation appearance determinationOrdered By: Oziel Cadena on 07-17-2022 Appearance (Spun CSF) Colorless Colorless [facility] Cerebrospinal fluid sample t ube volume measurementOrdered By: Oziel Cadena on 07-17-2022 Specimen volume (CSF) 22.0 mL [facility] Color CSFOrdered By: Oziel Cadena on 07-17-2022 Color (CSF) Colorless Colorless [facility] Manual cerebrospinal fluid e rythrocytes count (number/volume)Ordered By: Oziel Cadena on 07-17-2022 RBC Manual cnt (CSF) [#/Vol] 0 /uL [facility] Comment on above: The reference interv al and other method performance specifications have not been established for this body fluid. The test result must be integrated into the clinical context for interpretation. No Panel InformationOrdered By: Oziel Cadena on 07-17-2022 CSF Appearance Clear Clear [facility] CSF Tube Number Tube number: 1 [facility] Nucleated cells [#/volume] i n Cerebral spinal fluid by Manual countOrdered By: Oziel Cadena on 07-17-2022 Nucleated cells Manual cnt (CSF) [#/Vol] 0.003 10*3/uL 0-5 [facility] Activated partial thrombopla stin time (aPTT) in platelet poor plasma by coagulation aOrdered By: Loi Wong on 04-16-2022 aPTT Coag (PPP) [Time] 32.8 s 25.1-36.5 [facility] Basophils Auto (Bld) [#/Vol] Ordered By: oLi Wong on 04-16-2022 Basophils (Bld) [#/Vol] 0.1 10*3/uL 0.0-0.2 [facility] Basophils/100 WBC Auto (Bld) Ordered By: Loi Wong on 04-16-2022 Basophils/100 WBC (Bld) 1.2 % . [facility] Creatine kinase [Enzymatic a ctivity/volume] in Serum or PlasmaOrdered By: Loi Wong on 04-16-2022 CK [Catalytic activity/Vol] 69 U/L 22-269 [facility] Creatinine and Glomerular fi ltration rate.predicted panel (S/P/Bld)Ordered By: Loi Wong on 04-16-2022 Creatinine [Mass/Vol] 0.97 mg/dL 0.64-1.27 [facility] Eosinophils Auto (Bld) [#/Vo l]Ordered By: Loi Wong on 04-16-2022 Eosinophils (Bld) [#/Vol] 0.1 10*3/uL 0.0-0.45 [facility] Eosinophils/100 WBC Auto (Bl d)Ordered By: Loi Wong on 04-16-2022 Eosinophils/100 WBC (Bld) 1.2 % . [facility] Erythrocyte distribution wid th Auto (RBC) [Ratio]Ordered By: Loi Wong on 04-16-2022 Erythrocyte distribution width (RBC) [Ratio] 14.1 % 12.0-14.8 [facility] Estimated glomerular filtrat ion rate (GFR) non- AmericanOrdered By: Loi Wong on 04-16-2022 GFR/1.73 sq M.predicted among non-blacks MDRD (S/P/Bld) [Vol rate/Area] > 60 mL/Min [facility] Hematocrit Auto (Bld) [Volum e fraction]Ordered By: Loi Wong on 04-16-2022 Hematocrit (Bld) [Volume fraction] 43.2 % 38.8-50.0 [facility] Hemoglobin [Mass/volume] in BloodOrdered By: Loi Wong on 04-16-2022 Hemoglobin (Bld) [Mass/Vol] 14.7 g/dL 13.0-17.0 [facility] - Chemistry and C hemistry - challengeOrdered By: Loi Wong on 04-16-2022 Natriuretic peptide B (Bld) [Mass/Vol] 29.0 pg/mL 5-100 [facility] - CoagulationOrde red By: Loi Wong on 04-16-2022 PT Coag (PPP) [Time] 12.0 s 9.0-12.9 [facility] - Hematology and Cell countsOrdered By: Loi Wong on 04-16-2022 Nucleated RBC/100 WBC (Bld) [Ratio] 0.1 % 0-0.5 [facility] Leukocytes [#/volume] in Blo od by Automated countOrdered By: Loi Wong on 04-16-2022 WBC (Bld) [#/Vol] 7.7 10*3/uL 4.5-11.0 [facility] Lymphocytes Auto (Bld) [#/Vo l]Ordered By: Loi Wong on 04-16-2022 Lymphocytes (Bld) [#/Vol] 2.3 10*3/uL 1.00-4.8 [facility] Lymphocytes/100 WBC Auto (Bl d)Ordered By: Loi Wong on 04-16-2022 Lymphocytes/100 WBC (Bld) 29.4 % . [facility] MCH Auto (RBC) [Entitic mass ]Ordered By: Loi Wong on 04-16-2022 MCH (RBC) [Entitic mass] 32.0 pg 27.5-35.2 [facility] MCHC Auto (RBC) [Mass/Vol]Or dered By: Loi Wong on 04-16-2022 MCHC (RBC) [Mass/Vol] 34.0 g/dL 32.5-35.6 [facility] MCV Auto (RBC) [Entitic vol] Ordered By: Loi Wong on 04-16-2022 MCV (RBC) [Entitic vol] 94.0 fL 83.5-101 [facility] Monocytes Auto (Bld) [#/Vol] Ordered By: Loi Wong on 04-16-2022 Monocytes (Bld) [#/Vol] 0.6 10*3/uL 0.0-0.8 [facility] Monocytes/100 WBC Auto (Bld) Ordered By: Loi Wong on 04-16-2022 Monocytes/100 WBC (Bld) 7.7 % . [facility] Neutrophils Auto (Bld) [#/Vo l]Ordered By: Loi Wong on 04-16-2022 Neutrophils (Bld) [#/Vol] 4.7 10*3/uL 1.8-7.7 [facility] Neutrophils/100 WBC Auto (Bl d)Ordered By: Loi Wong on 04-16-2022 Neutrophils/100 WBC (Bld) 60.5 % . [facility] No Panel InformationOrdered By: Loi Wong on 04-16-2022 D-Dimer Quantitative (PE/DVT) < 200 ng/mL 0-243 [facility] Comment on above: The reference range for [...] conditions. Estimated GFR () > 60 mL/Min [facility] Comment on above: GFR estimated refere nce range: According to KDOQI guidelines, <60 ml/min/1.73m2 is sufficient to diagnose a patient with chronic kidney disease. Pharmacy Creatinine Clearance (Chem 79.33 [facility] Platelet mean volume Auto (B ld) [Entitic vol]Ordered By: Loi Wong on 04-16-2022 Platelet mean volume (Bld) [Entitic vol] 9.7 fL 6.6-10.1 [facility] Platelet poor plasma interna tional normalized ratio (INR) by coagulation assay (relatOrdered By: Loi Wong on 04-16-2022 INR Coag (PPP) [Relative time] 1.1 {INR} [facility] Comment on above: INR Therapeutic Rang e [...] 04-16-2022 Platelets (Bld) [#/Vol] 238 10*3/uL 150-450 [facility] RBC Auto (Bld) [#/Vol]Ordere d By: Loi Wong on 04-16-2022 RBC (Bld) [#/Vol] 4.59 10*6/uL 3.90-5.60 [facility] Serum or plasma anion gap de terminationOrdered By: Loi Wong on 04-16-2022 Anion gap [Moles/Vol] 12.4 mmol/L 6.0-15.0 [facility] Serum or plasma calcium paramjit urement (mass/volume)Ordered By: Loi Wong on 04-16-2022 Calcium [Mass/Vol] 9.0 mg/dL 8.2-10.2 [facility] Serum or plasma chloride robby surement (moles/volume)Ordered By: Loi Wong on 04-16-2022 Chloride [Moles/Vol] 103 mmol/L 95-114 [facility] Serum or plasma creatine kin ase MB (CKMB)/total creatine kinase (CK) ratio by calculaOrdered By: Loi Wong on 04-16-2022 CK.MB Calc [Catalytic fraction] 2.0 % 0.00-2.50 [facility] Serum or plasma creatine kin ase MB measurement (mass/volume)Ordered By: Loi Wong on 04-16-2022 CK.MB [Mass/Vol] 1.4 ng/mL 0.6-6.3 [facility] Serum or plasma glucose paramjit urement (mass/volume)Ordered By: Loi Wong on 04-16-2022 Glucose [Mass/Vol] 88 mg/dL 70-100 [facility] Comment on above: ADA recommended refe rence rangeRandom Glucose Reference Range is dependent on time and content of last meal. Glucose of more than 200 mg/dL in a nonstressed, ambulatory subject supports the diagnosis of Diabetes Mellitus. Serum or plasma potassium me asurement (moles/volume)Ordered By: Loi Wong on 04-16-2022 Potassium [Moles/Vol] 4.3 mmol/L 3.5-5.1 [facility] Serum or plasma sodium measu rement (moles/volume)Ordered By: Loi Wong on 04-16-2022 Sodium [Moles/Vol] 135 mmol/L 136-146 [facility] Serum or plasma total carbon dioxide measurement (moles/volume)Ordered By: Loi Wong on 04-16-2022 CO2 [Moles/Vol] 23.9 mmol/L 22.0-30.0 [facility] Serum or plasma urea nitroge n measurement (mass/volume)Ordered By: Loi Wong on 04-16-2022 Urea nitrogen [Mass/Vol] 12 mg/dL 03-10 [facility] Troponin I.cardiac [Mass/vol ume] in Serum or Plasma by High sensitivity methodOrdered By: Loi Wong on 04-16-2022 Troponin I.cardiac High sensitivity method [Mass/Vol] 5 pg/mL 0- [facility] COVID Quick Testingon 2021 Result Negative EXPO Other Quick Fluon 03-16-2022 FLUAV Ab CF (S) [Titer] Negative EXPO Other FLUBV Ab CF (S) [Titer] Negative EXPO Other MRI Brain w/o + w/on 022 [...] by Jillian Morales on 01/18/2022 1413 Normal [facility] Cell Count + Differential, C on 11-07-2021 WBC (Bld) [#/Vol] 0.006 10*3/uL above high threshold 0 - 5 [facility] [employer] Work Phone: [phone] Cell Count + Differential, CSF 70 1 [facility] [employer] Work Phone: [phone] Cell Count + Differential, CSF 10 % [facility] [employer] Work Phone: [phone] Cell Count + Differential, CSF 60 % [facility] [employer] Work Phone: [phone] Cell Count + Differential, CSF 30 % [facility] [employer] Work Phone: [phone] Cell Count + Differential, CSF Colorless COLORLESS [facility] [employer] Work Phone: [phone] Cell Count + Differential, CSF 245 /uL above high threshold 0 - 5 [facility] [employer] Work Phone: [phone] Cell Count + [...] Phone: [phone] Albumin [Mass/Vol] 4578 mg/dL [phone] MG-Luis rosurge [employer] Work Phone: [phone] IgG (CSF) [Mass/Vol] 2.2 mg/dL 0.0-6.0 MG-N euro[facility]ge [facility] Work Phone: [phone] IgG [Mass/Vol] 496 mg/dL below low threshold [phone] [facility] Work Phone: [phone] Comment on above: REFERENCE INTERVAL: Immunoglobulin GAccess complete set of age- and/or gender-specific reference intervals for this test in the [facility] Test Directory ([place]). IgG clearance/Albumin clearance (S+CSF) [Ratio] 0.56 {ratio} [...] sclerosis will have a negative result.Performed By: [place] [facility] [place] [address] [id number] Director: Paula Middleton MD Albumin (CSF) [Mass/Vol] Canceled [facility] Work Phone: [phone] Albumin [Mass/Vol] Canceled [facility]Luis [facility]surge [employer] Work Phone: [phone] Glucose (CSF) [Mass/Vol] 56 mg/dL 40 - 70 [facility] Work Phone: [phone] IgG (CSF) [Mass/Vol] Canceled MG-N [facility]sur[facility] [employer] Work Phone: [phone] IgG [Mass/Vol] Canceled [...] ry-Lynn Work Phone: [facility] Work Phone: [phone] Canceled [facility] Work Phone: Path [...] a) No falls within the last year SO[facility]Demwcvm[facility] [place] Work Phone: Tobacco use status [facility] a) Yes EI[facility] Work Phone: Blood Pressure Cuff Size Adult BF-Bgmqeim-Ey [facility] [place] Work Phone: Initial Visit (Neurosurgery) on 11-03-2021 Initial Visit (Neurosurgery) Diagnoses/Problems Weight loss (783.21) (R63.4) Anxiety (300.00) (F41.9) Depression (311) (F32.A) History of high cholesterol (V12.29) (Z86.39) 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 In [...] He saw Dr. Ba a neurologist in [facility]. He describes his vision as seeing 1-1/2 [...] MG Oral Tablet Vitals Vital Signs Recorded: [id number] 09:38AM Oaairtljrsl72.2 F Heart Rate63 Wtslsejcgoz51 Yfbcuems369 Tbuisviqq56 Blood Pressure Cuff SizeAdult Height5 ft 7.13 in Ursmwa093 lb 6 oz BMI Uvhbkhjvvf92.05 kg/m2 BSA Calculated1.91 Tobacco Usea) Yes Fall Screeninga) No falls within the last year O2 Enimkwjhoi27 Pain Scale7 Physical Exam Constitutional - General appearance: No acute distress, well de (more content not included)... 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 In [...] He saw Dr. Ba a neurologist in [facility]. He describes his vision as seeing 1-1/2 [...] MG Oral Tablet Vitals Vital Signs Recorded: [id number] 09:38AM Cqvshwzllkg83.2 F Heart Rate63 Qmetotjuzgf43 Wjcctyhm061 Pcrufjdgm33 Blood Pressure Cuff SizeAdult Height5 ft 7.13 in Ivzjzb639 lb 6 oz BMI Nldtvvdhjk54.05 kg/m2 BSA Calculated1.91 Tobacco Usea) Yes Fall Screeninga) No falls within the last year O2 Phsjqnmsjt98 Pain Scale7 Ph (more content not included)... Normal [facility] CBC W Auto Differential pane l (Bld)on 10-06-2021 Basophils (Bld) [#/Vol] 0.06 10*3/uL [facility] Basophils/100 WBC (Bld) 0.8 % [facility] Differential cell count method Nom (Bld) Auto [facility] Eosinophils (Bld) [#/Vol] 0.11 10*3/uL [facility] Eosinophils/100 WBC (Bld) 1.5 % [facility] Erythrocyte distribution width (RBC) [Ratio] 12.8 % 11.5 - 15.0 % [facility] Hematocrit (Bld) [Volume fraction] 43.7 % 39.0 - 51.0 % [facility] Hemoglobin (Bld) [Mass/Vol] 14.6 g/dL 13.0 - 17.0 g/dL [facility] Immature granulocytes (Bld) [#/Vol] [facility] Immature granulocytes/100 WBC (Bld) 0.3 % [facility] Lymphocytes (Bld) [#/Vol] 1.75 10*3/uL [facility] Lymphocytes/100 WBC (Bld) 23.7 % [facility] MCH (RBC) [Entitic mass] 32.7 pg 26.0 - 34.0 pg [facility] MCHC (RBC) [Mass/Vol] 33.4 g/dL 30.5 - 36.0 g/dL [facility] MCV (RBC) [Entitic vol] 98.0 fL 80.0 - 100.0 fL [facility] Monocytes (Bld) [#/Vol] 0.52 10*3/uL NINF [facility] Monocytes/100 WBC (Bld) 7.0 % [facility] Neutrophils (Bld) [#/Vol] 4.92 10*3/uL [facility] Neutrophils/100 WBC (Bld) 66.7 % [facility] Nucleated RBC (Bld) [#/Vol] NINF [facility] Nucleated RBC/100 WBC (Bld) [Ratio] 0.0 % /100 WBC [facility] Platelet mean volume (Bld) [Entitic vol] 10.8 fL 9.0 - 12.7 fL [facility] Platelets (Bld) [#/Vol] 246 10*3/uL [facility] RBC (Bld) [#/Vol] 4.46 10*6/uL 4.20 - 6.00 m/uL [facility] WBC (Bld) [#/Vol] 7.38 10*3/uL [facility] This is an appended report. These results have been appended to a previously verified report. [facility] CT Chest W contrast Tristin IMPRESSION: [...] any questions regarding this interpretation, please call [phone]. If you are unable to reach us at the number above, please feel free to contact [facility] eRadiology at [phone]. [email or web address]_NOT_US E_DIVISION OF RADIOLOGY * * *Final Report* * * DATE OF EXAM: Oct 06 2021 8:22AM [facility] 0539 - CT CHEST W IVCON / [...] images through the upper abdomen appear stable. Operation Specialist (topogram) images: No additional findings. FlorentinZZ_DO_NOT_US E_DIVISION OF RADIOLOGY Provider, [facility] - 10/06/2021 * * *Final Report* * * DATE OF EXAM: Oct 06 2021 8:22AM [facility] 0539 - CT CHEST W IVCON / [...] images through the upper abdomen appear stable. Operation Specialist (topogram) images: No additional findings. IMPRESSION IMPRESSION: [...] any questions regarding this interpretation, please call [phone]. If you are unable to reach us at the number above, please feel free to contact [facility] eRadiology at [phone]. [facility] CT Neck W contrast Tristin 04-2 IMPRESSION: [...] any questions regarding this interpretation, please call [phone]. If you are unable to reach us at the number above, please feel free to contact [facility] eRadiology at [phone]. [email or web address]_NOT_US E_DIVISION OF RADIOLOGY * * *Final Report* * * DATE OF EXAM: Oct 06 2021 8:22AM [facility] 0013 - CT NECK SOFT TISSUE W [...] E_DIVISION OF RADIOLOGY Provider, Dacia Jansenbishnu villagomez [place] - 10/06/2021 * * *Final Report* * * DATE OF EXAM: Oct 06 2021 8:22AM [facility] 0013 - CT NECK SOFT TISSUE W [...] any questions regarding this interpretation, please call [phone]. If you are unable to reach us at the number above, please feel free to contact [facility] eRadiology at [phone]. [facility] CT Neck W contrast IVOrdered By: Ccf Provider on 10-06-[address] [facility] metabolic 2000 panelOrdered By: Micheal Vizcaino on 10-06-2021 Albumin [Mass/Vol] 4.5 g/dL 3.9 - 4.9 g/dL [facility] ALP [Catalytic activity/Vol] 82 U/L 38 - 113 U/L [facility] ALT [Catalytic activity/Vol] 25 U/L 10 - 54 U/L [facility] Anion gap [Moles/Vol] 10 mmol/L 9 - 18 mmol/L [facility] AST [Catalytic activity/Vol] 21 U/L 14 - 40 U/L [facility] Bilirubin [Mass/Vol] 0.6 mg/dL 0.2 - 1 .3 mg/dL [facility] Calcium [Mass/Vol] 9.5 mg/dL 8.5 - 10. 2 mg/dL [facility] Chloride [Moles/Vol] 106 mmol/L High 97 - 10 5 mmol/L [facility] CO2 [Moles/Vol] 29 mmol/L 22 - 30 mmol/L [facility] Creatinine [Mass/Vol] 1.01 mg/dL 0.73 - 1.22 mg/dL [facility] GFR/1.73 sq M.predicted among non-blacks MDRD (S/P/Bld) [Vol rate/Area] 86 mL/min/{1.73_m2} - PINF [facility] Comment on above: Estimated Glomerular [...] 107 mg/dL High 74 - 99 mg/dL [facility] Comment on above: The [place] Diab[employer] Association (ADA) provides guidance for [...] Standards of Medical Care in Diabetes 2016, [place] Diabetes Association. Diabetes Care. 2016.39(Suppl 1). Interpretation and review of laboratory results Abnormal [facility] Potassium [Moles/Vol] 4.2 mmol/L 3.7 - 5.1 mmol/L [facility] Protein [Mass/Vol] 6.5 g/dL 6.3 - 8.0 g/dL [facility] [facility] Sodium [Moles/Vol] 145 mmol/L High 136 - 144 mmol/L [facility] Urea nitrogen [Mass/Vol] 10 mg/dL 9 - 24 mg/dL [facility] No Panel Informationon 10-06 Radiology Study observation (narrative) [facility] COVID + FLU Quick Testingon 06-30-2021 SARS-CoV-2 (COVID-19) RNA JER+probe Ql (Unsp spec) Negative EXPO Other COVID + FLU Quick Testing Negative EXPO Other COVID Quick Testingon 2020 Result Negative EXPO Other Basophils Auto (Bld) [#/Vol] on 09-20-2020 Basophils (Bld) [#/Vol] 0.0 10*3/uL 0.0-0.2 [facility] Basophils/100 WBC Auto (Bld) on 09-20-2020 Basophils/100 WBC (Bld) 0.6 % [facility] Blood hemoglobin measurement (mass/volume)on 09-20-2020 Hemoglobin (Bld) [Mass/Vol] 14.4 g/dL 13.0-17.0 [facility] Blood leukocytes automated c ount (number/volume)on 09-20-2020 WBC (Bld) [#/Vol] 7.4 10*3/uL 4.5-11.0 [facility] Eosinophils Auto (Bld) [#/Vo l]on 09-20-2020 Eosinophils (Bld) [#/Vol] 0.1 10*3/uL 0.0-0.45 [facility] Eosinophils/100 WBC Auto (Bl d)on 09-20-2020 Eosinophils/100 WBC (Bld) 0.9 % [facility] Erythrocyte distribution wid th Auto (RBC) [Ratio]on 09-20-2020 Erythrocyte distribution width (RBC) [Ratio] 14.6 % 12.0-14.8 [facility] Hematocrit Auto (Bld) [Volum e fraction]on 09-20-2020 Hematocrit (Bld) [Volume fraction] 41.7 % 38.8-50.0 [facility] Lymphocytes Auto (Bld) [#/Vo l]on 09-20-2020 Lymphocytes (Bld) [#/Vol] 1.6 10*3/uL 1.00-4.8 [facility] Lymphocytes/100 WBC Auto (Bl d)on 09-20-2020 Lymphocytes/100 WBC (Bld) 21.3 % [facility] MCH Auto (RBC) [Entitic mass ]on 09-20-2020 MCH (RBC) [Entitic mass] 32.4 pg 27.5-35.2 [facility] MCHC Auto (RBC) [Mass/Vol]on 09-20-2020 MCHC (RBC) [Mass/Vol] 34.5 g/dL 32.5-35.6 [facility] MCV Auto (RBC) [Entitic vol] on 09-20-2020 MCV (RBC) [Entitic vol] 93.9 fL 83.5-101 [facility] Monocytes Auto (Bld) [#/Vol] on 09-20-2020 Monocytes (Bld) [#/Vol] 0.6 10*3/uL 0.0-0.8 [facility] Monocytes/100 WBC Auto (Bld) on 09-20-2020 Monocytes/100 WBC (Bld) 8.6 % [facility] Neutrophils Auto (Bld) [#/Vo l]on 09-20-2020 Neutrophils (Bld) [#/Vol] 5.1 10*3/uL 1.8-7.7 [facility] Neutrophils/100 WBC Auto (Bl d)on 09-20-2020 Neutrophils/100 WBC (Bld) 68.6 % [facility] Otheron 09-20-2020 Nucleated RBC/100 WBC (Bld) [Ratio] 0.0 % 0-0.5 [facility] Platelet mean volume Auto (B ld) [Entitic vol]on 09-20-2020 Platelet mean volume (Bld) [Entitic vol] 9.3 fL 6.6-10.1 [facility] Platelets Auto (Bld) [#/Vol] on 09-20-2020 Platelets (Bld) [#/Vol] 182 10*3/uL 150-450 [facility] RBC Auto (Bld) [#/Vol]on RBC (Bld) [#/Vol] 4.44 10*6/uL 3.90-5.60 [facility] Body fluid albumin measureme nt (mass/volume)on 09-13-2020 Albumin (Body fld) [Mass/Vol] 4.3 g/dL 3.2-5.5 [facility] Cholesterol [Mass/volume] in Serum or Plasmaon 09-13-2020 Cholesterol [Mass/Vol] 219 mg/dL 140-200 [facility] Comment on above: Chol less than 200 m g/dl low riskChol 201-239 mg/dl borderline riskChol 240 mg/dl and greater high risk Cholesterol in LDL Calc [Mas s/Vol]on 09-13-2020 Cholesterol in LDL [Mass/Vol] 149 mg/dL 0-100 [facility] Comment on above: LDL ATP III CLASSIFI CATIONLDL less than 100 mg/dL OptimalLDL 100-129 mg/dL Near or above optimalLDL 130-159 mg/dL Borderline highLDL 160-189 mg/dL HighLDL greater than 189 mg/dL Very high Cholesterol in VLDL Calc [Ma ss/Vol]on 09-13-2020 Cholesterol in VLDL [Mass/Vol] 28 mg/dL [facility] Creatinine and Glomerular fi ltration rate.predicted panel (S/P/Bld)on 09-13-2020 Creatinine [Mass/Vol] 0.89 mg/dL 0.64-1.27 [facility] GFR/1.73 sq M.predicted orverto g non-blacks MDRD (S/P/Bld) [Vol rate/Area]on 09-13-2020 GFR/1.73 sq M predicted among non-blacks MDRD (S/P/Bld) [Vol rate/Area] > 60 mL/Min [facility] Globulin Calc (S) [Mass/Vol] on 09-13-2020 Globulin (S) [Mass/Vol] 2.0 g/dL [facility] No Panel Informationon 09-13 Estimated GFR () > 60 mL/Min [facility] Comment on above: GFR estimated refere nce range: According to KDOQI guidelines, <60 ml/min/1.73m2 is sufficient to diagnose a patient with chronic kidney disease. Otheron 09-13-2020 GFR/1.73 sq M.predicted MDRD (S/P/Bld) [Vol rate/Area] > 60 mL/Min [facility] Comment on above: GFR estimated refere nce range: According to KDOQI guidelines, <60 ml/min/1.73m2 is sufficient to diagnose a patient with chronic kidney disease. Pharmacy Creatinine Clearance (Chem N/A [facility] Prostate Specific Antigen Screen 0.480 ng/mL 0.000-4.00 0 [facility] Protein [Mass/volume] in Ser um or Plasmaon 09-13-2020 Protein [Mass/Vol] 6.3 g/dL 6.1-7.9 [facility] SARS-CoV-2 (COVID-19) IgG Ab [Presence] in Serum or Plasma by Immunoassayon 09-13-2020 SARS-CoV-2 (COVID-19) IgG Ab [Presence] in Serum or Plasma by Immunoassay Positive Negative [facility] Comment on above: Results suggest rece nt or prior infection with SARS-CoV-2.Correlation with epidemiologic risk factors and otherclinical and laboratory findings is recommended. Serologicresults should not be used as the sole basis to diagnose orexclude recent SARS-CoV-2 infection. False positive resultsinfrequently occur due to prior infection with other humanCoronaviruses.This assay was performed using the [employer] Liaison(R)SARS-CoV-2 S1/S2 IgG assay.This assay detects antibodies against SARS-CoV-2 spikeprotein including the receptor binding domain (RBD).Performed at: [address] [id number] Director: Florencio Wu PhD, Phone: [phone] SARS-CoV-2 (COVID-19) IgG IA Ql Positive Negative [facility] Comment on above: Results suggest rece nt or prior infection with SARS-CoV-2.Correlation with epidemiologic risk factors and otherclinical and laboratory findings is recommended. Serologicresults should not be used as the sole basis to diagnose orexclude recent SARS-CoV-2 infection. False positive resultsinfrequently occur due to prior infection with other humanCoronaviruses.This assay was performed using the [employer] Liaison(R)SARS-CoV-2 S1/S2 IgG assay.This assay detects antibodies against SARS-CoV-2 spikeprotein including the receptor binding domain (RBD).Performed at: [facility] [employer] Director: Florencio Wu PhD, Phone: [phone] Serum or plasma alanine mclaughlin otransferase measurement without P-5'-P (enzymatic activion 09-13-2020 ALT No additional P-5'-P [Catalytic activity/Vol] 19 U/L 10-60 [facility] Serum or plasma albumin/glob ulin mass ratioon 09-13-2020 Albumin/Globulin [Mass ratio] 2.2 {ratio} [facility] Serum or plasma alkaline fuentes sphatase measurement (enzymatic activity/volume)on 09-13-2020 ALP [Catalytic activity/Vol] 53 U/L 32-92 [facility] Serum or plasma aspartate am inotransferase measurement (enzymatic activity/volume)on 09-13-2020 AST [Catalytic activity/Vol] 22 U/L 10-42 [facility] Serum or plasma calcium paramjit urement (mass/volume)on 09-13-2020 Calcium [Mass/Vol] 9.1 mg/dL 8.2-10.2 [facility] Serum or plasma chloride robby surement (moles/volume)on 09-13-2020 Chloride [Moles/Vol] 105 mmol/L 95-114 [facility] Serum or plasma glucose paramjit urement (mass/volume)on 09-13-2020 Glucose [Mass/Vol] 97 mg/dL 70-100 [facility] Comment on above: ADA recommended refe rence rangeRandom Glucose Reference Range is dependent on time and content of last meal. Glucose of more than 200 mg/dL in a nonstressed, ambulatory subject supports the diagnosis of Diabetes Mellitus. Serum or plasma high density lipoprotein (HDL) cholesterol measurementon 09-13-2020 Cholesterol in HDL [Mass/Vol] 41 mg/dL [facility] Comment on above: HDL CHOL ATP-III CLA SSIFICATION Cardiovascular RiskHDL > or equal to 60 mg/dL LOWHDL < 40 mg/dL HIGH Serum or plasma potassium me asurement (moles/volume)on 09-13-2020 Potassium [Moles/Vol] 4.2 mmol/L 3.5-5.1 [facility] Serum or plasma sodium measu rement (moles/volume)on 09-13-2020 Sodium [Moles/Vol] 135 mmol/L 136-146 [facility] Serum or plasma thyroid stim ulating hormone (TSH) measurement by high sensitivity meton 09-13-2020 TSH Qn 1.66 u[iU]/mL 0.45-5.33 [facility] Serum or plasma total biliru bin measurement (mass/volume)on 09-13-2020 Bilirubin [Mass/Vol] 0.9 mg/dL 0.3-1.2 [facility] Serum or plasma total carbon dioxide measurement (moles/volume)on 09-13-2020 CO2 [Moles/Vol] 22.5 mmol/L 22.0-30.0 [facility] Serum or plasma total choles terol/high density lipoprotein (HDL) cholesterol mass gia 09-13-2020 Cholesterol.total/Chol esterol in HDL [Mass ratio] 5.3 {ratio} [facility] Serum or plasma urea nitroge n measurement (mass/volume)on 09-13-2020 Urea nitrogen [Mass/Vol] 12 mg/dL 9-23 [facility] TSH DL <= 0.005 mIU/L Qnon 0 09-13-2020 TSH Qn 1.66 m[IU]/L 0.45-5.33 [facility] Triglyceride [Mass/volume] i n Serum or Plasmaon 09-13-2020 Triglyceride [Mass/Vol] 144 mg/dL 35-149 [facility] Comment on above: TRIG ATP [...] implantation, left eye. [employer] [place] Dictated: 04/14/2019 #[id number] Typed 04/14/2019 #[id number] cc: Coleen Grajeda M.D. [facility] Comment on above: Result Comment: Elec [...] and inferior fornices of the eye. A Knowledge Factoran manometer was set on the eye at [...] condition. Coleen Grajeda M.D. gls Dictated: 04/14/2019 #[id number] Typed: 04/15/2019 #[id number] cc: Coleen Grajeda M.D. [facility] Comment on above: Result Comment: Elec tronically Signed By: Coleen Grajeda MD\.br\Date and Time Signed: 04/18/19 09:54 EDT Coding Summary.on 04-15-2019 Coding Summary. 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 Name: SHANTEL MELENDEZ /Sex: 1960 Male Med Rec #: [id number] Physician: Coleen Grajeda MD Financial #: [id number] Pt. Type: A Room/Bed: [place] [address] Admit/Disch: 04/14/19 12:59:00 - 04/14/19 16:00:00 Institution: [...] Performed Surgeon - Primary Scrub - Primary Outsole Cementer Machine - Primary Time In 04/14/19 14:55:00 04/14/19 [...] VERNON, Pauly GOODEN, RN, Tierra Role Performed Outsole Cementer Machine - Primary Outsole Cementer Machine - Relief Time In 04/14/19 14:55:00 04/14/19 [...] Unable to Visualize, Outcomes Met? Yes Warm, [place], Dry Last Modified By: Johnathon Karimi RN [...] RN Patient Status Stable Skin. 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-[employer] Catalog ?# [id number] 21.0[F] Expiration Date 10/16/23 Unique Device [id number] Identifier (BERNARD) Usage Data FT Implant Site [...] 15:16 Asya Alves CST 04/15/19 14:44 Normal [facility] Inpatient Patient Summaryon 04-14-2019 Inpatient Patient Summary [facility] Clinical Discharge Instructions PERSON INFORMATION Name: SHANTEL MELENDEZ PHYSICIANS Admitting Physician: Coleen Grajeda MD Attending Physician: Coleen Grajeda MD PCP: JILLIAN BARONE DO Discharge Diagnosis: Cataract Comment: PATIENT EDUCATION INFORMATION Instructions: Medication Leaflets: Follow up: With: Address: When: [facility] [address], [place] [phone] Business (1) Comments: Call physician if symptoms worsen Keep scheduled appointment MEDICATION LIST Comment: Normal [facility] Main OR PACU II Recordon Main OR PACU II Record PACU Phase II Doc ument Type FT Summary Primary Physician: Coleen Grajeda MD Finalized Date/Time: 04/14/19 17:54:42 Pt. Name: SHANTEL MELENDEZ /Sex: 1960 Male Med Rec #: [id number] Physician: Coleen Grajeda MD Financial #: [id number] Pt. Type: A Room/Bed: [place] [address] Admit/Disch: 04/14/19 12:59:23 - Institution: Case Times [...] By: Lizeth Rush RN 04/14/19 17:54 Normal [facility] Main OR Preoperative Recordo n 04-14-2019 Main OR Preoperative Record PreOp Document Type FT Summary Primary Physician: Coleen Grajeda MD Finalized Date/Time: 04/14/19 15:14:03 Pt. Name: SHANTEL MELENDEZ Fatimah Ashraf./Sex: 1960 Male Med Rec #: [id number] Physician: Coleen Grajeda MD Financial #: [id number] Pt. Type: Room/Bed: [place] [address] Admit/Disch: 04/14/19 12:59:23 - Institution: Case Times [...] By: Johnathon Karimi RN 04/14/19 15:14 Normal [facility] Patient Education - Texton 1 Patient Education - Text [facility] Vital Signs Date Time Vital Sign Value Performing Clinician Facility 02-19-2025 11:25-0400 Body height 172.72 cm [employer] DO Work Phone: [facility] 02-19-2025 11:25-0400 Body mass index (BMI) [Ratio] 24.1 kg/m2 Griselda Sprout[employer]s DO Work Phone: [facility] 02-19-2025 11:25-0400 Body weight 72.12 kg Griselda [employer]s DO Work Phone: [facility] 02-19-2025 11:25-0400 Diastolic blood pressure 68 mm[Hg] Griselda Kuns DO Work Phone: [facility] 02-19-2025 11:25-0400 Heart rate 107 /min Griselda Kuns DO Work Phone: [facility] 02-19-2025 11:25-0400 Respiratory rate 16 /min Griselda Kuns DO Work Phone: [facility] 02-19-2025 11:25-0400 SaO2% (BldA) [Mass fraction] 98 % Griselda Kuns DO Work Phone: [facility] 02-19-2025 11:25-0400 Systolic blood pressure 102 mm[Hg] Griselda Kuns DO Work Phone: [facility] 02-04-2025 14:41-0400 Body mass index (BMI) [Ratio] 24.18 kg/m2 Oziel Cadena MD Work Phone: [facility] 02-04-2025 14:41-0400 Body weight 72.12 kg Oziel Cadena MD Work Phone: [facility] 02-04-2025 14:41-0400 Diastolic blood pressure 93 mm[Hg] Oziel Cadena MD Work Phone: [facility] 02-04-2025 14:41-0400 Heart rate 113 /min Oziel Cadena MD Work Phone: [facility] 02-04-2025 14:41-0400 Systolic blood pressure 133 mm[Hg] Oziel Cadena MD Work Phone: [facility] 01-12-2025 15:20-0400 Body height 172.72 cm Griselda Kuns DO Work Phone: [facility] 01-12-2025 15:20-0400 Body mass index (BMI) [Ratio] 27 kg/m2 Griselda Kuns DO Work Phone: [facility] 01-12-2025 15:20-0400 Body weight 80.73 kg Griselda Kuns DO Work Phone: [facility] 01-12-2025 15:20-0400 Diastolic blood pressure 74 mm[Hg] Griselda Kuns DO Work Phone: [facility] 01-12-2025 15:20-0400 Heart rate 76 /min Griselda Kuns DO Work Phone: [facility] 01-12-2025 15:20-0400 Systolic blood pressure 120 mm[Hg] Griselda Kuns DO Work Phone: [facility] 12-24-2024 14:12-0400 Body mass index (BMI) [Ratio] 25.09 kg/m2 Oziel Cadena MD Work Phone: [facility] 12-24-2024 14:12-0400 Body weight 74.84 kg Oziel Cadena MD Work Phone: [facility] 12-24-2024 14:12-0400 Diastolic blood pressure 87 mm[Hg] Oziel Cadena MD Work Phone: [facility] 12-24-2024 14:12-0400 Heart rate 85 /min Oziel Cadena MD Work Phone: [facility] 12-24-2024 14:12-0400 Systolic blood pressure 125 mm[Hg] Oziel Cadena MD Work Phone: [facility] 11-19-2024 14:04-0400 Body height 172.72 cm Griselda Kuns DO Work Phone: [facility] 11-19-2024 14:04-0400 Body temperature 100.7 [degF] Griselda Kuns DO Work Phone: [facility] 11-19-2024 14:04-0400 Heart rate 96 /min Griselda Kuns DO Work Phone: [facility] 11-19-2024 14:04-0400 Respiratory rate 18 /min Griselda Kuns DO Work Phone: [facility] 11-19-2024 14:04-0400 SaO2% (BldA) [Mass fraction] 99 % Griselda Kuns DO Work Phone: [facility] 11-17-2024 14:03-0400 Body height 172.72 cm Griselda Kuns DO Work Phone: [facility] 11-17-2024 14:03-0400 Body mass index (BMI) [Ratio] 26.3 kg/m2 Griselda Kuns DO Work Phone: [facility] 11-17-2024 14:03-0400 Body weight 78.47 kg Griselda Kuns DO Work Phone: [facility] 11-17-2024 14:03-0400 Diastolic blood pressure 80 mm[Hg] Griselda Kuns DO Work Phone: [facility] 11-17-2024 14:03-0400 Heart rate 109 /min Griselda Kuns DO Work Phone: [facility] 11-17-2024 14:03-0400 Systolic blood pressure 120 mm[Hg] Griselda Kuns DO Work Phone: [facility] 11-05-2024 10:30-0400 Diastolic blood pressure 76 mm[Hg] Griselda Kuns DO Work Phone: [facility] 11-05-2024 10:30-0400 Heart rate 71 /min Griselda Kuns DO Work Phone: [facility] 11-05-2024 10:30-0400 Respiratory rate 20 /min Griselda Kuns DO Work Phone: [facility] 11-05-2024 10:30-0400 SaO2% (BldA) [Mass fraction] 98 % Griselda Kuns DO Work Phone: [facility] 11-05-2024 10:30-0400 Systolic blood pressure 110 mm[Hg] Griselda Kuns DO Work Phone: [facility] 11-05-2024 07:12-0400 Body height 172.72 cm Griselda Kuns DO Work Phone: [facility] 11-05-2024 07:12-0400 Body weight 77.11 kg Griselda Kuns DO Work Phone: [facility] 10-27-2024 09:57-0400 Body height 172.72 cm Griselda Kuns DO Work Phone: [facility] 10-27-2024 09:57-0400 Body mass index (BMI) [Ratio] 26.4 kg/m2 Griselda Kuns DO Work Phone: [facility] 10-27-2024 09:57-0400 Body weight 78.92 kg Griselda Kuns DO Work Phone: [facility] 10-27-2024 09:57-0400 Diastolic blood pressure 64 mm[Hg] Griselda Kuns DO Work Phone: [facility] 10-27-2024 09:57-0400 Heart rate 64 /min Griselda Kuns DO Work Phone: [facility] 10-27-2024 09:57-0400 Respiratory rate 18 /min Griselda Kuns DO Work Phone: [facility] 10-27-2024 09:57-0400 SaO2% (BldA) [Mass fraction] 98 % Griselda Kuns DO Work Phone: [facility] 10-27-2024 09:57-0400 Systolic blood pressure 110 mm[Hg] Griselda Kuns DO Work Phone: [facility] 10-13-2024 09:06-0400 Body height 172.7 cm Doretha Harris MD Work Phone: [facility] 10-13-2024 09:06-0400 Body mass index (BMI) [Ratio] 25.54 kg/m2 Doretha Harris MD Work Phone: [facility] 10-13-2024 09:06-0400 Body weight 76.2 kg Doretha Harris MD Work Phone: [facility] 10-13-2024 09:06-0400 Diastolic blood pressure 60 mm[Hg] Doretha Harris MD Work Phone: [facility] 10-13-2024 09:06-0400 Heart rate 75 /min Doretha Harris MD Work Phone: [facility] 10-13-2024 09:06-0400 Systolic blood pressure 100 mm[Hg] Doretha Harris MD Work Phone: [facility] 10-10-2024 13:05-0400 Body height 172.72 cm Griselda Kuns DO Work Phone: [facility] 10-10-2024 13:05-0400 Body mass index (BMI) [Ratio] 25.4 kg/m2 Griselda Kuns DO Work Phone: [facility] 10-10-2024 13:05-0400 Body weight 75.74 kg Griselda Kuns DO Work Phone: [facility] 10-10-2024 13:05-0400 Diastolic blood pressure 58 mm[Hg] Griselda Kuns DO Work Phone: [facility] 10-10-2024 13:05-0400 Heart rate 76 /min Griselda Kuns DO Work Phone: [facility] 10-10-2024 13:05-0400 Systolic blood pressure 94 mm[Hg] Griselda Kuns DO Work Phone: [facility] 10-06-2024 18:42-0400 Diastolic blood pressure 80 mm[Hg] Griselda Kuns DO Work Phone: [facility] 10-06-2024 18:42-0400 Heart rate 80 /min Griselda Kuns DO Work Phone: [facility] 10-06-2024 18:42-0400 Respiratory rate 16 /min Griselda Kuns DO Work Phone: [facility] 10-06-2024 18:42-0400 SaO2% (BldA) [Mass fraction] 98 % Griselda Kuns DO Work Phone: [facility] 10-06-2024 18:42-0400 Systolic blood pressure 142 mm[Hg] Griselda Kuns DO Work Phone: [facility] 10-06-2024 14:04-0400 Body height 172.72 cm Griselda Kuns DO Work Phone: [facility] 10-06-2024 14:04-0400 Body temperature 98.2 [degF] Griselda Kuns DO Work Phone: [facility] 10-06-2024 14:04-0400 Body weight 77.9 kg Griselda Kuns DO Work Phone: [facility] 09-20-2024 14:00-0400 Heart rate 88 /min Griselda Kuns DO Work Phone: [facility] 09-20-2024 14:00-0400 Respiratory rate 20 /min Griselda Kuns DO Work Phone: [facility] 09-20-2024 14:00-0400 SaO2% (BldA) [Mass fraction] 93 % Griselda Kuns DO Work Phone: [facility] 09-20-2024 13:48-0400 Body temperature 99.4 [degF] Griselda Kuns DO Work Phone: [facility] 09-20-2024 13:48-0400 Diastolic blood pressure 59 mm[Hg] Griselda Kuns DO Work Phone: [facility] 09-20-2024 13:48-0400 Systolic blood pressure 103 mm[Hg] Griselda Kuns DO Work Phone: [facility] 09-20-2024 10:55-0400 Body height 172.72 cm Griselda Kuns DO Work Phone: [facility] 09-20-2024 10:55-0400 Body weight 77.9 kg Griselda Kuns DO Work Phone: [facility] 09-11-2024 10:46-0400 Body mass index (BMI) [Ratio] 27.06 kg/m2 Oziel Cadena MD Work Phone: [facility] 09-11-2024 10:46-0400 Body weight 80.74 kg Oziel Cadena MD Work Phone: [facility] 09-11-2024 10:46-0400 Diastolic blood pressure 68 mm[Hg] Oziel Cadena MD Work Phone: [facility] 09-11-2024 10:46-0400 Heart rate 61 /min Oziel Cadena MD Work Phone: [facility] 09-11-2024 10:46-0400 Systolic blood pressure 135 mm[Hg] Oziel Cadena MD Work Phone: [facility] 09-11-2024 09:22-0400 Body height 172.72 cm Griselda Kuns DO Work Phone: [facility] 09-11-2024 09:22-0400 Body mass index (BMI) [Ratio] 28.1 kg/m2 Griselda Kuns DO Work Phone: [facility] 09-11-2024 09:22-0400 Body temperature 96.6 [degF] Griselda Kuns DO Work Phone: [facility] 09-11-2024 09:22-0400 Body weight 84 kg Griselda Kuns DO Work Phone: [facility] 09-11-2024 09:22-0400 Diastolic blood pressure 86 mm[Hg] Griselda Kuns DO Work Phone: [facility] 09-11-2024 09:22-0400 Heart rate 78 /min Griselda Kuns DO Work Phone: [facility] 09-11-2024 09:22-0400 Respiratory rate 16 /min Griselda Kuns DO Work Phone: [facility] 09-11-2024 09:22-0400 SaO2% (BldA) [Mass fraction] 98 % Griselda Kuns DO Work Phone: [facility] 09-11-2024 09:22-0400 Systolic blood pressure 122 mm[Hg] Griselda Kuns DO Work Phone: [facility] 07-31-2024 13:26-0500 Body mass index (BMI) [Ratio] 27.37 kg/m2 Oziel Cadena MD Work Phone: [facility] 07-31-2024 13:26-0500 Body weight 81.65 kg Oziel Cadena MD Work Phone: [facility] 07-31-2024 13:26-0500 Diastolic blood pressure 89 mm[Hg] Oziel Cadena MD Work Phone: [facility] 07-31-2024 13:26-0500 Heart rate 81 /min Oziel Cadena MD Work Phone: [facility] 07-31-2024 13:26-0500 Systolic blood pressure 131 mm[Hg] Oziel Cadena MD Work Phone: [facility] 07-03-2024 09:54-0500 Body height 172.72 cm Griselda Kuns DO Work Phone: [facility] 07-03-2024 09:54-0500 Body mass index (BMI) [Ratio] 28.4 kg/m2 Griselda Kuns DO Work Phone: [facility] 07-03-2024 09:54-0500 Body weight 84.82 kg Griselda Kuns DO Work Phone: [facility] 07-03-2024 09:54-0500 Diastolic blood pressure 70 mm[Hg] Griselda Kuns DO Work Phone: [facility] 07-03-2024 09:54-0500 Heart rate 81 /min Griselda Kuns DO Work Phone: [facility] 07-03-2024 09:54-0500 Respiratory rate 18 /min Griselda Kuns DO Work Phone: [facility] 07-03-2024 09:54-0500 SaO2% (BldA) [Mass fraction] 98 % Griselda Kuns DO Work Phone: [facility] 07-03-2024 09:54-0500 Systolic blood pressure 120 mm[Hg] Griselda Kuns DO Work Phone: [facility] 07-02-2024 14:18-0500 Body mass index (BMI) [Ratio] 28.28 kg/m2 Oziel Cadena MD Work Phone: [facility] 07-02-2024 14:18-0500 Body weight 84.37 kg Oziel Cadena MD Work Phone: [facility] 07-02-2024 14:18-0500 Diastolic blood pressure 77 mm[Hg] Oziel Cadena MD Work Phone: [facility] 07-02-2024 14:18-0500 Heart rate 86 /min Oziel Cadena MD Work Phone: [facility] 07-02-2024 14:18-0500 Systolic blood pressure 143 mm[Hg] Oziel Cadena MD Work Phone: [facility] 06-30-2024 08:56-0500 Body height 172.7 cm Doretha Harris MD Work Phone: [facility] 06-30-2024 08:56-0500 Body mass index (BMI) [Ratio] 27.37 kg/m2 Doretha Harris MD Work Phone: [facility] 06-30-2024 08:56-0500 Body weight 81.65 kg Doretha Harris MD Work Phone: 0(705)[phone] [place] [address] 06-30-2024 08:56-0500 Diastolic blood pressure 70 mm[Hg] Doretha Harris MD Work Phone: 5(150)[phone] [place] [address] 06-30-2024 08:56-0500 Heart rate 75 /min Doretha Harris MD Work Phone: 7(148)[phone] [place] [address] 06-30-2024 08:56-0500 Systolic blood pressure 124 mm[Hg] Doretha Harris MD Work Phone: [facility] 05-21-2024 14:04-0500 Body height 172.7 cm Oziel Cadena MD Work Phone: [facility] 05-21-2024 14:04-0500 Body mass index (BMI) [Ratio] 26.46 kg/m2 Oziel Cadena MD Work Phone: [facility] 05-21-2024 14:04-0500 Body weight 78.93 kg Oziel Cadena MD Work Phone: [facility] 05-21-2024 14:04-0500 Diastolic blood pressure 82 mm[Hg] Oziel Cadena MD Work Phone: [facility] 05-21-2024 14:04-0500 Systolic blood pressure 120 mm[Hg] Oziel Cadena MD Work Phone: [facility] 04-28-2024 09:48-0500 Body height 172.72 cm [facility] 04-28-2024 09:48-0500 Body mass index (BMI) [Ratio] 27 kg/m2 [facility] 04-28-2024 09:48-0500 Body weight 80.73 kg [facility] 04-28-2024 09:48-0500 Diastolic blood pressure 76 mm[Hg] [facility] 04-28-2024 09:48-0500 Heart rate 61 /min [facility] 04-28-2024 09:48-0500 Respiratory rate 18 /min [facility] 04-28-2024 09:48-0500 SaO2% (BldA) [Mass fraction] 96 % [facility] 04-28-2024 09:48-0500 Systolic blood pressure 130 mm[Hg] [facility] 04-10-2024 12:11-0400 Body temperature 98.1 [degF] Doretha Harris MD Work Phone: [facility] 04-10-2024 12:11-0400 Diastolic blood pressure 58 mm[Hg] Doretha Harris MD Work Phone: [facility] 04-10-2024 12:11-0400 Heart rate 82 /min Doretha Harris MD Work Phone: [facility] 04-10-2024 12:11-0400 Respiratory rate 17 /min Doretha Harris MD Work Phone: [facility] 04-10-2024 12:11-0400 Systolic blood pressure 118 mm[Hg] Doretha Harris MD Work Phone: [facility] 04-10-2024 09:20-0400 SaO2% (BldA) [Mass fraction] 93 % Doretha Harris MD Work Phone: [facility] 04-09-2024 15:07-0400 Body temperature 37 Doretha Harris MD Work Phone: [facility] 04-09-2024 15:07-0400 SaO2% (BldA) [Mass fraction] 100 % Doretha Harris MD Work Phone: [facility] 04-09-2024 14:47-0400 Body temperature 37.0 degrees Celsius [facility] Comment on above: Performed By: #### [id number] #### TITUS Mercado ([id number]) [facility] ([facility]) [address] [place] [address] 04-09-2024 14:47-0400 SaO2% (BldA) [Mass fraction] 100 % [facility] Comment on above: Performed By: #### [id number] #### TITUS eMrcado ([id number]) [facility] ([facility]) [address] [place] [address] 04-09-2024 12:11-0400 Body height 172.7 cm Doretha Harris MD Work Phone: [facility] 04-09-2024 12:11-0400 Body mass index (BMI) [Ratio] 27.12 kg/m2 Doretha Harris MD Work Phone: [facility] 04-09-2024 12:11-0400 Body weight 80.9 kg Doretha Harris MD Work Phone: [facility] 04-01-2024 10:47-0400 Body height 172.72 cm [facility] 04-01-2024 10:47-0400 Body mass index (BMI) [Ratio] 27.2 kg/m2 [facility] 04-01-2024 10:47-0400 Body weight 81.19 kg [facility] 04-01-2024 10:47-0400 Diastolic blood pressure 70 mm[Hg] [facility] 04-01-2024 10:47-0400 Heart rate 50 /min [facility] 04-01-2024 10:47-0400 Respiratory rate 16 /min [facility] 04-01-2024 10:47-0400 SaO2% (BldA) [Mass fraction] 99 % [facility] 04-01-2024 10:47-0400 Systolic blood pressure 120 mm[Hg] [facility] 01-31-2024 10:24-0400 Body height 172.72 cm [facility] 01-31-2024 10:24-0400 Body mass index (BMI) [Ratio] 27.3 kg/m2 [facility] 01-31-2024 10:24-0400 Body weight 81.64 kg [facility] 01-31-2024 10:24-0400 Diastolic blood pressure 70 mm[Hg] [facility] 01-31-2024 10:24-0400 Heart rate 75 /min [facility] 01-31-2024 10:24-0400 Respiratory rate 18 /min [facility] 01-31-2024 10:24-0400 SaO2% (BldA) [Mass fraction] 98 % [facility] 01-31-2024 10:24-0400 Systolic blood pressure 122 mm[Hg] [facility] 01-03-2024 13:36-0400 Body height 172.7 cm Doretha Harris MD Work Phone: [facility] 01-03-2024 13:36-0400 Body mass index (BMI) [Ratio] 27.43 kg/m2 Doretha Harris MD Work Phone: [facility] 01-03-2024 13:36-0400 Body weight 81.83 kg Doretha Harris MD Work Phone: [facility] 01-03-2024 13:36-0400 Diastolic blood pressure 80 mm[Hg] Doretha Harris MD Work Phone: [facility] 01-03-2024 13:36-0400 Heart rate 80 /min Doretha Harris MD Work Phone: [facility] 01-03-2024 13:36-0400 Systolic blood pressure 160 mm[Hg] Doretha Harris MD Work Phone: [facility] 12-13-2023 10:00-0400 Body mass index (BMI) [Ratio] 27.1 kg/m2 Helder Jack MD Work Phone: [facility] 12-13-2023 10:00-0400 Body temperature 97.5 [degF] Helder Jack MD Work Phone: [facility] 12-13-2023 10:00-0400 Body weight 80.83 kg Helder Jack MD Work Phone: [facility] 12-13-2023 10:00-0400 Diastolic blood pressure 59 mm[Hg] Helder Jack MD Work Phone: [facility] 12-13-2023 10:00-0400 Heart rate 92 /min Helder Jack MD Work Phone: [facility] 12-13-2023 10:00-0400 Respiratory rate 17 /min Helder Jack MD Work Phone: [facility] 12-13-2023 10:00-0400 SaO2% (BldA) [Mass fraction] 96 % Helder Jack MD Work Phone: [facility] 12-13-2023 10:00-0400 Systolic blood pressure 133 mm[Hg] Helder Jack MD Work Phone: [facility] 12-12-2023 13:08-0400 Body height 172.7 cm Solomon Milks PA-C Work Phone: [facility] 12-12-2023 13:08-0400 Body mass index (BMI) [Ratio] 26.91 kg/m2 Solomon Milks PA-C Work Phone: [facility] 12-12-2023 13:08-0400 Body weight 80.29 kg Solomon Milks PA-C Work Phone: [facility] 12-12-2023 13:08-0400 Diastolic blood pressure 70 mm[Hg] Solomon Milks PA-C Work Phone: [facility] 12-12-2023 13:08-0400 Heart rate 91 /min Solomon Milks PA-C Work Phone: [facility] 12-12-2023 13:08-0400 Systolic blood pressure 116 mm[Hg] Solomon Narayanan PA-C Work Phone: [facility] 12-03-2023 10:51-0400 Body height 172.72 cm DO Griselda Kuns Work Phone: [facility] 12-03-2023 10:51-0400 Body mass index (BMI) [Ratio] 26.1 kg/m2 DO Griselda Kuns Work Phone: [facility] 12-03-2023 10:51-0400 Body weight 78.01 kg DO Griselda Kuns Work Phone: [facility] 12-03-2023 10:51-0400 Diastolic blood pressure 82 mm[Hg] DO Griselda Kuns Work Phone: [facility] 12-03-2023 10:51-0400 Heart rate 97 /min DO Griselda Kuns Work Phone: [facility] 12-03-2023 10:51-0400 Respiratory rate 18 /min DO Griselda Kuns Work Phone: [facility] 12-03-2023 10:51-0400 SaO2% (BldA) [Mass fraction] 96 % DO Griselda Kuns Work Phone: [facility] 12-03-2023 10:51-0400 Systolic blood pressure 110 mm[Hg] DO Griselda Kuns Work Phone: [facility] 11-02-2023 09:49-0400 Body height 170.6 cm Racquel Cole MD Work Phone: [facility] 11-02-2023 09:49-0400 Body mass index (BMI) [Ratio] 27.38 kg/m2 Racquel Cole MD Work Phone: [facility] 11-02-2023 09:49-0400 Body temperature 97.7 [degF] Racquel Cole MD Work Phone: [facility] 11-02-2023 09:49-0400 Body weight 79.7 kg Racquel Cole MD Work Phone: [facility] 11-02-2023 09:49-0400 Diastolic blood pressure 76 mm[Hg] Racquel Cole MD Work Phone: [facility] 11-02-2023 09:49-0400 Heart rate 72 /min Racquel Cole MD Work Phone: [facility] 11-02-2023 09:49-0400 Respiratory rate 16 /min Racquel Cole MD Work Phone: [facility] 11-02-2023 09:49-0400 SaO2% (BldA) [Mass fraction] 99 % Racquel Cole MD Work Phone: [facility] 11-02-2023 09:49-0400 Systolic blood pressure 130 mm[Hg] Racquel Cole MD Work Phone: [facility] 10-29-2023 10:32-0400 Body height 172.72 cm DO Griselda Kuns Work Phone: [facility] 10-29-2023 10:32-0400 Body mass index (BMI) [Ratio] 26.6 kg/m2 DO Griselda Kuns Work Phone: [facility] 10-29-2023 10:32-0400 Body weight 79.37 kg DO Griselda Kuns Work Phone: [facility] 10-29-2023 10:32-0400 Diastolic blood pressure 82 mm[Hg] DO Griselda Kuns Work Phone: [facility] 10-29-2023 10:32-0400 Heart rate 71 /min DO Griselda Kuns Work Phone: [facility] 10-29-2023 10:32-0400 Respiratory rate 16 /min DO Griselda Kuns Work Phone: [facility] 10-29-2023 10:32-0400 SaO2% (BldA) [Mass fraction] 98 % DO Griselda Kuns Work Phone: [facility] 10-29-2023 10:32-0400 Systolic blood pressure 128 mm[Hg] DO Griselda Kuns Work Phone: [facility] 10-18-2023 09:02-0400 Diastolic blood pressure 68 mm[Hg] DO Griselda Kuns Work Phone: [facility] 10-18-2023 09:02-0400 Systolic blood pressure 132 mm[Hg] DO Griselda Kuns Work Phone: [facility] 10-18-2023 08:58-0400 Body height 172.72 cm DO Griselda Kuns Work Phone: [facility] 10-18-2023 08:58-0400 Body mass index (BMI) [Ratio] 26.6 kg/m2 DO Griselda Kuns Work Phone: [facility] 10-18-2023 08:58-0400 Body weight 79.37 kg DO Griselda Kuns Work Phone: [facility] 10-18-2023 08:58-0400 Heart rate 57 /min DO Griselda Kuns Work Phone: [facility] 10-18-2023 08:58-0400 Respiratory rate 18 /min DO Griselda Kuns Work Phone: [facility] 10-18-2023 08:58-0400 SaO2% (BldA) [Mass fraction] 98 % DO Griselda Kuns Work Phone: [facility] 10-05-2023 09:37-0400 Body height 172.2 cm Helder Jack MD Work Phone: [facility] 10-05-2023 09:37-0400 Body mass index (BMI) [Ratio] 26.25 kg/m2 Helder Jack MD Work Phone: [facility] 10-05-2023 09:37-0400 Body temperature 97.3 [degF] Helder Jack MD Work Phone: [facility] 10-05-2023 09:37-0400 Body weight 77.84 kg Helder Jack MD Work Phone: [facility] 10-05-2023 09:37-0400 Diastolic blood pressure 68 mm[Hg] Helder Jack MD Work Phone: [facility] 10-05-2023 09:37-0400 Heart rate 81 /min Helder Jack MD Work Phone: [facility] 10-05-2023 09:37-0400 Respiratory rate 16 /min Helder Jack MD Work Phone: [facility] 10-05-2023 09:37-0400 SaO2% (BldA) [Mass fraction] 99 % Helder Jack MD Work Phone: [facility] 10-05-2023 09:37-0400 Systolic blood pressure 116 mm[Hg] Helder Jack MD Work Phone: [facility] 09-05-2023 13:44-0400 Diastolic blood pressure 99 mm[Hg] DO Griselda Kuns Work Phone: [facility] 09-05-2023 13:44-0400 Systolic blood pressure 160 mm[Hg] DO Griselda Kuns Work Phone: [facility] 09-05-2023 13:41-0400 Body height 172.72 cm DO Griselda Kuns Work Phone: [facility] 09-05-2023 13:41-0400 Body mass index (BMI) [Ratio] 27.8 kg/m2 DO Griselda Kuns Work Phone: [facility] 09-05-2023 13:41-0400 Body weight 83 kg DO Griselda Kuns Work Phone: [facility] 09-05-2023 13:41-0400 Heart rate 66 /min DO Griselda Kuns Work Phone: [facility] 09-05-2023 13:41-0400 Respiratory rate 18 /min DO Griselda Kuns Work Phone: [facility] 09-05-2023 13:41-0400 SaO2% (BldA) [Mass fraction] 99 % DO Griselda Kuns Work Phone: [facility] 09-05-2023 11:58-0400 Body height 172.72 cm DO Griselda Kuns Work Phone: [facility] 09-05-2023 11:58-0400 Body mass index (BMI) [Ratio] 27.3 kg/m2 DO Griselda Kuns Work Phone: [facility] 09-05-2023 11:58-0400 Body temperature 97.8 [degF] DO Griselda Kuns Work Phone: [facility] 09-05-2023 11:58-0400 Body weight 81.64 kg DO Griselda Kuns Work Phone: [facility] 09-05-2023 11:58-0400 Diastolic blood pressure 92 mm[Hg] DO Griselda Kuns Work Phone: [facility] 09-05-2023 11:58-0400 Heart rate 71 /min DO Griselda Kuns Work Phone: [facility] 09-05-2023 11:58-0400 SaO2% (BldA) [Mass fraction] 96 % DO Griselda Kuns Work Phone: [facility] 09-05-2023 11:58-0400 Systolic blood pressure 160 mm[Hg] DO Grisleda Kuns Work Phone: [facility] 08-15-2023 15:41-0500 Body height 172.72 cm DO Griselda Kuns Work Phone: [facility] 08-15-2023 15:41-0500 Body mass index (BMI) [Ratio] 28.1 kg/m2 DO Griselda Kuns Work Phone: [facility] 08-15-2023 15:41-0500 Body weight 84.08 kg DO Griselda Kuns Work Phone: [facility] 08-15-2023 15:41-0500 Diastolic blood pressure 72 mm[Hg] DO Griselda Kuns Work Phone: [facility] 08-15-2023 15:41-0500 Heart rate 62 /min DO Griselda Kuns Work Phone: [facility] 08-15-2023 15:41-0500 Respiratory rate 18 /min DO Griselda Kuns Work Phone: [facility] 08-15-2023 15:41-0500 SaO2% (BldA) [Mass fraction] 99 % DO Griselda Kuns Work Phone: [facility] 08-15-2023 15:41-0500 Systolic blood pressure 128 mm[Hg] DO Griselda Kuns Work Phone: [facility] 08-02-2023 13:11-0500 Body height 172.72 cm DO Griselda Kuns Work Phone: [facility] 08-02-2023 13:11-0500 Body mass index (BMI) [Ratio] 27.9 kg/m2 DO Griselda Kuns Work Phone: [facility] 08-02-2023 13:11-0500 Body weight 83.46 kg DO Griselda Kuns Work Phone: [facility] 08-02-2023 13:11-0500 Diastolic blood pressure 70 mm[Hg] DO Griselda Kuns Work Phone: [facility] 08-02-2023 13:11-0500 Heart rate 68 /min DO Griselda Kuns Work Phone: [facility] 08-02-2023 13:11-0500 Respiratory rate 16 /min DO Griselda Kuns Work Phone: [facility] 08-02-2023 13:11-0500 SaO2% (BldA) [Mass fraction] 97 % DO Griselda Kuns Work Phone: [facility] 08-02-2023 13:11-0500 Systolic blood pressure 130 mm[Hg] DO Griselda Kuns Work Phone: [facility] 07-02-2023 09:30-0500 Body height 172.72 cm Griselda Kuns Other [facility] 07-02-2023 09:30-0500 Body mass index (BMI) [Ratio] 28.28 kg/m2 Griselda Kuns Other [facility] [employer] Other 07-02-2023 09:30-0500 Body weight 84.37 kg Griselda Kuns Other [facility] [employer] Other 07-02-2023 09:30-0500 Body weight 84.36 kg DO Griselda Kuns Work Phone: [facility] 07-02-2023 09:30-0500 Diastolic blood pressure 92 mm[Hg] Griselda Kuns Other [facility] 07-02-2023 09:30-0500 Respiratory rate 16 /min Griselda Kuns Other [employer] Other 07-02-2023 09:30-0500 SaO2% (BldA) [Mass fraction] 97 % Griselda Kuns Other [employer] Other 07-02-2023 09:30-0500 Systolic blood pressure 160 mm[Hg] Griselda Kuns Other [facility] 05-31-2023 13:45-0500 Body height 172.72 cm Griselda Andreas Other [facility] 05-31-2023 13:45-0500 Body mass index (BMI) [Ratio] 27.37 kg/m2 [employer]iseldakeith [employer] Other [employer] Other 05-31-2023 13:45-0500 Body weight 81.65 kg Griseldakeith Mendezs Other [employer] Other 05-31-2023 13:45-0500 Body weight 81.64 kg DO Griselda Hastings Work Phone: [facility] 05-31-2023 13:45-0500 Diastolic blood pressure 80 mm[Hg] Griselda Andreas Other [facility] 05-31-2023 13:45-0500 Respiratory rate 18 /min Griselda Mendezs Other [facility] Other 05-31-2023 13:45-0500 SaO2% (BldA) [Mass fraction] 98 % Griseldakeith Mendezs Other [employer] Other 05-31-2023 13:45-0500 Systolic blood pressure 120 mm[Hg] Griselda Andreas Other [facility] 05-30-2023 11:15-0500 Body height 172.72 cm Ruddy Harvey Other [facility] 05-30-2023 11:15-0500 Body mass index (BMI) [Ratio] 27.52 kg/m2 Ruddy Harvey Other [employer] Other 05-30-2023 11:15-0500 Body temperature 97.8 [degF] Ruddy Harvey Other [facility] [employer] Other 05-30-2023 11:15-0500 Body weight 82.1 kg Ruddy Ovalledoris Other [facility] 05-30-2023 11:15-0500 SaO2% (BldA) [Mass fraction] 98 % Ruddy Wes Other [facility] [employer] Other 05-15-2023 13:20-0500 Body height 172.72 cm Lilliam Kamla Other [facility] 05-15-2023 13:20-0500 Body mass index (BMI) [Ratio] 27.52 kg/m2 Lilliam Kamla Other [employer] Other 05-15-2023 13:20-0500 Body weight 82.1 kg Lilliam Kamla Other [facility] 05-15-2023 13:20-0500 Diastolic blood pressure 84 mm[Hg] Lilliam Kamla Other [facility] 05-15-2023 13:20-0500 Respiratory rate 18 /min Lilliam Kamla Other [employer] Other 05-15-2023 13:20-0500 SaO2% (BldA) [Mass fraction] 98 % Lilliam Kamla Other [facility] [employer] Other 05-15-2023 13:20-0500 Systolic blood pressure 142 mm[Hg] Lilliam Kamla Other [facility] 05-07-2023 13:16-0500 Diastolic blood pressure 78 mm[Hg] DO [employer] Work Phone: [facility] 05-07-2023 13:16-0500 Heart rate 75 /min DO [employer] Work Phone: [facility] 05-07-2023 13:16-0500 Respiratory rate 16 /min DO Griselda [employer] Work Phone: [facility] 05-07-2023 13:16-0500 SaO2% (BldA) [Mass fraction] 96 % DO Griselda Kuns Work Phone: [facility] 05-07-2023 13:16-0500 Systolic blood pressure 135 mm[Hg] DO Griselda [employer] Work Phone: [facility] 05-07-2023 10:30-0500 Inhaled oxygen flow rate 3 L/min DO Griselda [employer] Work Phone: [facility] 05-07-2023 08:29-0500 Body height 172.72 cm DO Griselda [employer] Work Phone: [facility] 05-07-2023 08:29-0500 Body weight 79.37 kg DO Griselda [employer] Work Phone: [facility] 05-03-2023 09:15-0500 Body height 172.72 cm Ruddy Harvey Other [employer] Other 05-03-2023 09:15-0500 Body mass index (BMI) [Ratio] 27.06 kg/m2 Ruddy Harvey Other [employer] Other 05-03-2023 09:15-0500 Body temperature 97.8 [degF] Ruddy Harvey Other [employer] Other 05-03-2023 09:15-0500 Body weight 80.74 kg Ruddy Harvey Other [employer] Other 05-03-2023 09:15-0500 Diastolic blood pressure 78 mm[Hg] Ruddy Harvey Other [employer] Other 05-03-2023 09:15-0500 SaO2% (BldA) [Mass fraction] 97 % Ruddy Ovalledoris Other [employer] Other 05-03-2023 09:15-0500 Systolic blood pressure 146 mm[Hg] Ruddy Ovalledoris Other [employer] Other 05-01-2023 10:30-0500 Body height 172.72 cm Griselda [employer] Other [employer] Other 05-01-2023 10:30-0500 Body mass index (BMI) [Ratio] 27.06 kg/m2 Griselda Kuns Other [employer] Other 05-01-2023 10:30-0500 Body weight 80.74 kg Griselda Kuns Other [employer] Other 05-01-2023 10:30-0500 Diastolic blood pressure 80 mm[Hg] Griselda Kuns Other [employer] Other 05-01-2023 10:30-0500 Respiratory rate 18 /min Griselda Kuns Other [employer] Other 05-01-2023 10:30-0500 SaO2% (BldA) [Mass fraction] 96 % Griselda Kuns Other [employer] Other 05-01-2023 10:30-0500 Systolic blood pressure 144 mm[Hg] Griselda Kuns Other [employer] Other 04-11-2023 10:40-0400 Body height 172.72 cm Lilliam Cason Other [employer] Other 04-11-2023 10:40-0400 Body mass index (BMI) [Ratio] 26.67 kg/m2 Lilliam Cason Other [employer] Other 04-11-2023 10:40-0400 Body weight 79.56 kg Lilliam Cason Other [employer] Other 04-11-2023 10:40-0400 Diastolic blood pressure 80 mm[Hg] Lilliam Cason Other [employer] Other 04-11-2023 10:40-0400 SaO2% (BldA) [Mass fraction] 96 % Lilliam Cason Other [employer] Other 04-11-2023 10:40-0400 Systolic blood pressure 148 mm[Hg] Lilliam Cason Other [employer] Other 03-21-2023 02:42-0400 Diastolic blood pressure 98 mm[Hg] DO Griselda Kuns Work Phone: [facility] 03-21-2023 02:42-0400 Heart rate 72 /min DO Griselda Kuns Work Phone: [facility] 03-21-2023 02:42-0400 Respiratory rate 16 /min DO Griselda Kuns Work Phone: [facility] 03-21-2023 02:42-0400 SaO2% (BldA) [Mass fraction] 97 % DO Griselda Kuns Work Phone: [facility] 03-21-2023 02:42-0400 Systolic blood pressure 170 mm[Hg] DO Griselda Kuns Work Phone: [facility] 03-21-2023 00:12-0400 Body height 172.72 cm DO Griselda Kuns Work Phone: [facility] 03-21-2023 00:12-0400 Body temperature 98 [degF] DO Griselda Kuns Work Phone: [facility] 03-21-2023 00:12-0400 Body weight 79.37 kg DO Griselda Kuns Work Phone: [facility] 03-15-2023 10:30-0400 Body height 172.72 cm Griselda Kuns Other [employer] Other 03-15-2023 10:30-0400 Body mass index (BMI) [Ratio] 26.76 kg/m2 Griselda Kuns Other [employer] Other 03-15-2023 10:30-0400 Body weight 79.83 kg Griselda Kuns Other [employer] Other 03-15-2023 10:30-0400 Diastolic blood pressure 86 mm[Hg] Griselda Kuns Other [employer] Other 03-15-2023 10:30-0400 Respiratory rate 16 /min Griselda Kuns Other [employer] Other 03-15-2023 10:30-0400 SaO2% (BldA) [Mass fraction] 97 % Griselda Kuns Other [employer] Other 03-15-2023 10:30-0400 Systolic blood pressure 174 mm[Hg] Griselda Kuns Other [employer] Other 03-08-2023 10:00-0400 Body height 172.72 cm Griselda Kuns Other [employer] Other 03-08-2023 10:00-0400 Body mass index (BMI) [Ratio] 27.18 kg/m2 Griselda Kuns Other [employer] Other 03-08-2023 10:00-0400 Body weight 81.1 kg Griselda Kuns Other [employer] Other 03-08-2023 10:00-0400 Diastolic blood pressure 82 mm[Hg] Griselda Kuns Other [employer] Other 03-08-2023 10:00-0400 Respiratory rate 16 /min Griselda Andreas Other [employer] Other 03-08-2023 10:00-0400 SaO2% (BldA) [Mass fraction] 96 % Griselda Andreas Other [employer] Other 03-08-2023 10:00-0400 Systolic blood pressure 118 mm[Hg] Griselda Kuns Other [employer] Other 02-26-2023 14:13-0400 Body height 172.72 cm DO Griselda Kuns Work Phone: [facility] 02-26-2023 14:13-0400 Body temperature 98 [degF] DO Griselda Kuns Work Phone: [facility] 02-26-2023 14:13-0400 Body weight 78.6 kg DO Griselda Kuns Work Phone: [facility] 02-26-2023 14:13-0400 Diastolic blood pressure 77 mm[Hg] DO Griselda Kuns Work Phone: [facility] 02-26-2023 14:13-0400 Heart rate 56 /min DO Griselda Kuns Work Phone: [facility] 02-26-2023 14:13-0400 Respiratory rate 18 /min DO Griselda Kuns Work Phone: [facility] 02-26-2023 14:13-0400 SaO2% (BldA) [Mass fraction] 96 % DO Griselda Kuns Work Phone: [facility] 02-26-2023 14:13-0400 Systolic blood pressure 142 mm[Hg] DO Griselda Kuns Work Phone: [facility] 12-05-2022 10:15-0400 Body height 172.72 cm Griselda Kuns Other [employer] Other 12-05-2022 10:15-0400 Body mass index (BMI) [Ratio] 25.85 kg/m2 Griselda Kuns Other [employer] Other 12-05-2022 10:15-0400 Body weight 77.11 kg Griselda Kuns Other [employer] Other 12-05-2022 10:15-0400 Diastolic blood pressure 80 mm[Hg] Griselda Kuns Other [employer] Other 12-05-2022 10:15-0400 Respiratory rate 16 /min Griselda Kuns Other [employer] Other 12-05-2022 10:15-0400 SaO2% (BldA) [Mass fraction] 96 % Griselda Kuns Other [employer] Other 12-05-2022 10:15-0400 Systolic blood pressure 140 mm[Hg] Griselda Kuns Other [employer] Other 09-13-2022 10:57-0400 Body height 170.6 cm Kelly Moorek PA-C Work Phone: [facility] 09-13-2022 10:57-0400 Body temperature 97.39 [degF] Kelly Moorek PA-C Work Phone: [facility] 09-13-2022 10:57-0400 Body weight 77.34 kg Kelly Moorek PA-C Work Phone: [facility] 09-13-2022 10:57-0400 Diastolic blood pressure 61 mm[Hg] Kelly Moorek PA-C Work Phone: [facility] 09-13-2022 10:57-0400 Heart rate 70 /min Kelly Moorek PA-C Work Phone: [facility] 09-13-2022 10:57-0400 Respiratory rate 18 /min Kelly Moorek PA-C Work Phone: [facility] [facility] 09-13-2022 10:57-0400 SaO2% (BldA) [Mass fraction] 100 % Kelly Moorek PA-C Work Phone: [facility] 09-13-2022 10:57-0400 Systolic blood pressure 133 mm[Hg] Kelly Moorek PA-C Work Phone: [facility] 08-31-2022 11:15-0400 Body height 172.72 cm Griseldakeith Mendezroge Other [employer] Other 08-31-2022 11:15-0400 Body mass index (BMI) [Ratio] 26.79 kg/m2 Griselda Sprout[employer]s Other [employer] Other 08-31-2022 11:15-0400 Body weight 79.92 kg Griselda SproutBoxroge Other [employer] Other 08-31-2022 11:15-0400 Diastolic blood pressure 78 mm[Hg] Griselda Kuns Other [employer] Other 08-31-2022 11:15-0400 Respiratory rate 16 /min Griselda Kuns Other [employer] Other 08-31-2022 11:15-0400 SaO2% (BldA) [Mass fraction] 98 % Griselda Kuns Other [employer] Other 08-31-2022 11:15-0400 Systolic blood pressure 138 mm[Hg] Griselda Kuns Other [employer] Other 08-01-2022 10:30-0500 Body height 172.72 cm Griselda Kuns Other [employer] Other 08-01-2022 10:30-0500 Body mass index (BMI) [Ratio] 27.27 kg/m2 Griselda Kuns Other [employer] Other 08-01-2022 10:30-0500 Body weight 81.38 kg Griselda Kuns Other [employer] Other 08-01-2022 10:30-0500 Diastolic blood pressure 82 mm[Hg] Griselda Kuns Other [employer] Other 08-01-2022 10:30-0500 Respiratory rate 16 /min Griselda Kuns Other [employer] Other 08-01-2022 10:30-0500 SaO2% (BldA) [Mass fraction] 99 % Griselda Kuns Other [facility] [employer] Other 08-01-2022 10:30-0500 Systolic blood pressure 146 mm[Hg] Griselda Kuns Other [employer] Other 07-17-2022 09:45-0500 Diastolic blood pressure 98 mm[Hg] DO Griselda Kuns Work Phone: [facility] 07-17-2022 09:45-0500 Heart rate 69 /min DO Griselda Kuns Work Phone: [facility] 07-17-2022 09:45-0500 Respiratory rate 16 /min DO Griselda Kuns Work Phone: [facility] 07-17-2022 09:45-0500 SaO2% (BldA) [Mass fraction] 99 % DO Griselda Kuns Work Phone: [facility] 07-17-2022 09:45-0500 Systolic blood pressure 144 mm[Hg] DO Griselda Kuns Work Phone: [facility] 07-17-2022 07:58-0500 Body height 172.72 cm DO Griselda Kuns Work Phone: [facility] 07-17-2022 07:58-0500 Body weight 79.37 kg DO Griselda Kuns Work Phone: [facility] 06-28-2022 10:20-0500 Body height 172.72 cm Trish Blades Other [employer] Other 06-28-2022 10:20-0500 Body mass index (BMI) [Ratio] 26.67 kg/m2 Trish Blades Other [employer] Other 06-28-2022 10:20-0500 Body weight 79.56 kg Trish Blades Other [employer] Other 06-28-2022 10:20-0500 Diastolic blood pressure 80 mm[Hg] Trish Blades Other [employer] Other 06-28-2022 10:20-0500 Systolic blood pressure 140 mm[Hg] Trish Blades Other [employer] Other 05-26-2022 13:30-0500 Body height 172.72 cm Griselda Kuns Other [employer] Other 05-26-2022 13:30-0500 Body mass index (BMI) [Ratio] 26.7 kg/m2 Griselda Kuns Other [employer] Other 05-26-2022 13:30-0500 Body weight 79.65 kg Griselda Kuns Other [employer] Other 05-26-2022 13:30-0500 Diastolic blood pressure 82 mm[Hg] Griselda Kuns Other [employer] Other 05-26-2022 13:30-0500 Respiratory rate 18 /min Griselda Kuns Other [employer] Other 05-26-2022 13:30-0500 SaO2% (BldA) [Mass fraction] 98 % Griselda Kuns Other [employer] Other 05-26-2022 13:30-0500 Systolic blood pressure 144 mm[Hg] Griselda Kuns Other [employer] Other 04-17-2022 00:30-0400 Diastolic blood pressure 64 mm[Hg] DO Griselda Kuns Work Phone: [facility] 04-17-2022 00:30-0400 Heart rate 78 /min DO Griselda Kuns Work Phone: [facility] 04-17-2022 00:30-0400 Respiratory rate 16 /min DO Griselda Kuns Work Phone: [facility] 04-17-2022 00:30-0400 SaO2% (BldA) [Mass fraction] 97 % DO Griselda Kuns Work Phone: [facility] 04-17-2022 00:30-0400 Systolic blood pressure 135 mm[Hg] DO Griselda Kuns Work Phone: [facility] 04-16-2022 19:45-0400 Body height 172.72 cm DO Griselda Kuns Work Phone: [facility] 04-16-2022 19:45-0400 Body temperature 98.1 [degF] DO Griselda Kuns Work Phone: [facility] 04-16-2022 19:45-0400 Body weight 78 kg DO Griselda Kuns Work Phone: [facility] 04-06-2022 16:31-0400 Body height 172.72 cm DO Griselda Kuns Work Phone: [facility] 04-06-2022 16:31-0400 Body temperature 98.1 [degF] DO Griselda Kuns Work Phone: [facility] 04-06-2022 16:31-0400 Body weight 79.37 kg DO Griselda Kuns Work Phone: [facility] 04-06-2022 16:31-0400 Diastolic blood pressure 108 mm[Hg] DO Griselda Kuns Work Phone: [facility] 04-06-2022 16:31-0400 Heart rate 95 /min DO Griselda Kuns Work Phone: [facility] 04-06-2022 16:31-0400 Respiratory rate 19 /min DO Griselda Kuns Work Phone: [facility] 04-06-2022 16:31-0400 SaO2% (BldA) [Mass fraction] 97 % DO Griselda Kuns Work Phone: [facility] 04-06-2022 16:31-0400 Systolic blood pressure 138 mm[Hg] DO Griselda Kuns Work Phone: [facility] 03-16-2022 13:30-0400 Body height 172.72 cm Griselda [employer] Other [employer] Other 03-16-2022 13:30-0400 Body mass index (BMI) [Ratio] 26.91 kg/m2 Griselda [employer] Other [employer] Other 03-16-2022 13:30-0400 Body weight 80.29 kg Griselda Kuns Other [employer] Other 03-16-2022 13:30-0400 Diastolic blood pressure 80 mm[Hg] Griselda Kuns Other [employer] Other 03-16-2022 13:30-0400 Respiratory rate 16 /min Griselda [employer] Other [employer] Other 03-16-2022 13:30-0400 SaO2% (BldA) [Mass fraction] 97 % Griselda Kuns Other [employer] Other 03-16-2022 13:30-0400 Systolic blood pressure 140 mm[Hg] Griselda Kuns Other [employer] Other 01-30-2022 12:00-0400 Body height 172.72 cm Griselda Kuns Other [employer] Other 01-30-2022 12:00-0400 Body mass index (BMI) [Ratio] 26.3 kg/m2 Griselda Kuns Other [employer] Other 01-30-2022 12:00-0400 Body weight 78.47 kg Griselda Kuns Other [employer] Other 01-30-2022 12:00-0400 Diastolic blood pressure 82 mm[Hg] Griselda Kuns Other [employer] Other 01-30-2022 12:00-0400 Respiratory rate 16 /min Griselda Kuns Other [employer] Other 01-30-2022 12:00-0400 SaO2% (BldA) [Mass fraction] 99 % Griselda Kuns Other [employer] Other 01-30-2022 12:00-0400 Systolic blood pressure 146 mm[Hg] Griselda Kuns Other [employer] Other 12-26-2021 11:00-0400 Body height 172.72 cm Griselda Kuns Other [employer] Other 12-26-2021 11:00-0400 Body mass index (BMI) [Ratio] 26.61 kg/m2 Griselda Kuns Other [employer] Other 12-26-2021 11:00-0400 Body weight 79.38 kg Griselda Kuns Other [employer] Other 12-26-2021 11:00-0400 Diastolic blood pressure 80 mm[Hg] Griselda Kuns Other [employer] Other 12-26-2021 11:00-0400 Respiratory rate 16 /min Griselda Kuns Other [employer] Other 12-26-2021 11:00-0400 SaO2% (BldA) [Mass fraction] 96 % Griselda Kuns Other [employer] Other 12-26-2021 11:00-0400 Systolic blood pressure 166 mm[Hg] Griselda Kuns Other [employer] Other 12-05-2021 10:15-0400 Body height 172.72 cm Griselda Kuns Other [employer] Other 12-05-2021 10:15-0400 Body mass index (BMI) [Ratio] 269.71 kg/m2 Griselda Kuns Other [employer] Other 12-05-2021 10:15-0400 Body weight 804.69 kg Griselda Kuns Other [employer] Other 12-05-2021 10:15-0400 Diastolic blood pressure 72 mm[Hg] Griselda Kuns Other [employer] Other 12-05-2021 10:15-0400 Respiratory rate 18 /min Griselda Kuns Other [employer] Other 12-05-2021 10:15-0400 SaO2% (BldA) [Mass fraction] 99 % Griselda Kuns Other [employer] Other 12-05-2021 10:15-0400 Systolic blood pressure 130 mm[Hg] Griselda Kuns Other [employer] Other 11-08-2021 11:15-0400 Body height 172.72 cm Griselda Kuns Other [employer] Other 11-08-2021 11:15-0400 Body mass index (BMI) [Ratio] 27.06 kg/m2 Griselda Kuns Other [employer] Other 11-08-2021 11:15-0400 Body weight 80.74 kg Griselda Kuns Other [employer] Other 11-08-2021 11:15-0400 Diastolic blood pressure 80 mm[Hg] Griselda Kuns Other [employer] Other 11-08-2021 11:15-0400 Respiratory rate 16 /min Griselda Kuns Other [employer] Other 11-08-2021 11:15-0400 SaO2% (BldA) [Mass fraction] 97 % Griselda Kuns Other [employer] Other 11-08-2021 11:15-0400 Systolic blood pressure 128 mm[Hg] Griselda Kuns Other [place] [employer] Other 11-03-2021 09:38-0400 Body height 170.51 cm Griselda R Andreas Work Phone: [facility] Work Phone: 11-03-2021 09:38-0400 Body mass index (BMI) [Ratio] 27.05 kg/m2 Griselda R Kuns Work Phone: [facility] Work Phone: 11-03-2021 09:38-0400 Body surface area Derived from formula 1.91 m2 Griselda Hastings Work Phone: [facility] Work Phone: 11-03-2021 09:38-0400 Body temperature 98.2 [degF] Griselda Hastings Work Phone: [facility] Work Phone: 11-03-2021 09:38-0400 Body weight 78.65 kg Griselda Hastings Work Phone: [facility] Work Phone: 11-03-2021 09:38-0400 Diastolic blood pressure 67 mm[Hg] Griselda Hastings Work Phone: [facility] Work Phone: 11-03-2021 09:38-0400 Heart rate 63 /min Griselda Hastings Work Phone: [facility] Work Phone: 11-03-2021 09:38-0400 Respiratory rate 16 /min Griselda Hastings Work Phone: [facility] Work Phone: 11-03-2021 09:38-0400 SaO2% (BldA) [Mass fraction] 99 % Griselda Hastings Work Phone: [facility] Work Phone: 11-03-2021 09:38-0400 Systolic blood pressure 147 mm[Hg] Griselda Hastings Work Phone: [facility] Work Phone: 11-03-2021 09:38-0400 7 1 Griselda Hastings Work Phone: [facility] Work Phone: Comment on above: [employer] 11-01-2021 13:30-0400 Body height 172.72 cm Griseldakeith Mendezs Other [employer] Other 11-01-2021 13:30-0400 Body mass index (BMI) [Ratio] 26.61 kg/m2 Griseldakeith Mendezs Other [employer] Other 11-01-2021 13:30-0400 Body weight 79.38 kg Griseldakeith Mendezs Other [employer] Other 11-01-2021 13:30-0400 Diastolic blood pressure 78 mm[Hg] Griseldakeith Mendezs Other [employer] Other 11-01-2021 13:30-0400 Respiratory rate 18 /min Griseldakeith Mendezs Other [employer] Other 11-01-2021 13:30-0400 SaO2% (BldA) [Mass fraction] 99 % Griseldakeith Mendezs Other [employer] Other 11-01-2021 13:30-0400 Systolic blood pressure 140 mm[Hg] Griselda Andreas Other [employer] Other 10-24-2021 09:45-0400 Body height 172.72 cm Sheng Schneider Other [employer] Other 10-24-2021 09:45-0400 Body mass index (BMI) [Ratio] 26.76 kg/m2 Sheng Schneider Other [employer] Other 10-24-2021 09:45-0400 Body weight 79.83 kg Sheng Schneider Other [employer] Other 10-13-2021 09:50-0400 Body height 172 cm Racquel Cole MD Work Phone: [facility] 10-13-2021 09:50-0400 Body temperature 97.5 [degF] Racquel Cole MD Work Phone: [facility] 10-13-2021 09:50-0400 Body weight 81.28 kg Racquel Cole MD Work Phone: [facility] 10-13-2021 09:50-0400 Diastolic blood pressure 77 mm[Hg] Racquel Cole MD Work Phone: [facility] 10-13-2021 09:50-0400 Heart rate 70 /min Racquel Cole MD Work Phone: [facility] 10-13-2021 09:50-0400 Respiratory rate 16 /min Racquel Cole MD Work Phone: [facility] 10-13-2021 09:50-0400 SaO2% (BldA) [Mass fraction] 99 % Racquel Cole MD Work Phone: [facility] 10-13-2021 09:50-0400 Systolic blood pressure 152 mm[Hg] Racquel Cole MD Work Phone: [facility] 09-19-2021 10:45-0400 Body height 172.72 cm Griselda Hastings Other [employer] Other 09-19-2021 10:45-0400 Body mass index (BMI) [Ratio] 26.15 kg/m2 Griselda Hastings Other [employer] Other 09-19-2021 10:45-0400 Body weight 78.02 kg Griselda Hastings Other [employer] Other 09-19-2021 10:45-0400 Diastolic blood pressure 80 mm[Hg] Griselda Kuns Other [employer] Other 09-19-2021 10:45-0400 Respiratory rate 18 /min Griselda Kuns Other [employer] Other 09-19-2021 10:45-0400 SaO2% (BldA) [Mass fraction] 99 % Griselda Kuns Other [employer] Other 09-19-2021 10:45-0400 Systolic blood pressure 140 mm[Hg] Griselda Kuns Other [employer] Other 06-30-2021 13:30-0500 Body height 172.72 cm Griselda Kuns Other [employer] Other 04-14-2021 08:45-0400 Body height 172.72 cm Griselda Kuns Other [employer] Other 04-14-2021 08:45-0400 Body mass index (BMI) [Ratio] 25.85 kg/m2 Griselda Kuns Other [employer] Other 04-14-2021 08:45-0400 Body weight 77.11 kg Griselda Kuns Other [employer] Other 04-14-2021 08:45-0400 Diastolic blood pressure 80 mm[Hg] Griselda Kuns Other [employer] Other 04-14-2021 08:45-0400 Respiratory rate 16 /min Griselda Kuns Other [employer] Other 04-14-2021 08:45-0400 SaO2% (BldA) [Mass fraction] 99 % Griselda Darling Other [employer] Other 04-14-2021 08:45-0400 Systolic blood pressure 124 mm[Hg] Griselda Hastings Other [employer] Other Encounters Encounter Date Encounter Type Care Provider Facility Start: 02-26-2025 End: 02-26-2025 Patient encounter procedure Griselda Hastings DO -[facility] Work Phone: Start: 02-26-2025 End: 02-26-2025 ambulatory Griselda Hastings DO Work Phone: [facility] Work Phone: Start: 02-19-2025 Patient encounter procedure Griseldakeith Mendezs DO Work Phone: [facility] Start: 02-19-2025 End: 02-19-2025 ambulatory Griselda Hastings DO Work Phone: [facility] Work Phone: Start: 02-19-2025 End: 02-19-2025 Patient encounter procedure Griselda Hastings DO -[facility] [place] Work Phone: Start: 02-18-2025 Non-patient / Non-visit Mayra Arias DO -[facility] Work Phone: Start: 02-13-2025 End: 02-13-2025 ambulatory DEBRA [facility] Start: 02-09-2025 End: 02-09-2025 ambulatory Sarina Ramsey MD Facility:[facility] Start: 02-04-2025 End: 02-04-2025 ambulatory OZIEL CADENA Not Available Comment on above: Acute pain of right shoulder (Primary Dx); Nerve root and plexus disorder, unspecified; Acute pain of left shoulder Start: 02-04-2025 End: 02-04-2025 Bamboo flowsheet Oziel Cadena MD Work Phone: [facility] Start: 02-04-2025 End: 02-04-2025 Bamboo flowsheet Oziel aCdena MD Work Phone: [facility] Start: 01-27-2025 Non-patient / Non-visit Sarina daniels MD -[facility] Work Phone: Start: 01-26-2025 End: 01-26-2025 ambulatory Sarina Ramsey MD Facility:[facility] Start: 01-12-2025 End: 01-12-2025 ambulatory Griselda Hastings DO Work Phone: [facility] Work Phone: Start: 01-12-2025 End: 01-12-2025 Patient encounter procedure Solomon Mullins APRN -[facility] Work Phone: Start: 01-08-2025 End: 01-08-2025 [...] Bamboo flowsheet Oziel Cadena MD Work Phone: [facility] Start: 12-24-2024 End: 12-24-2024 Bamboo flowsheet Oziel Cadena MD Work Phone: [facility] Start: 12-24-2024 End: 12-24-2024 Clinical Support Oziel Cadena MD Work Phone: [facility] Comment on above: Nerve root and plexu s disorder, unspecified (Primary Dx); Acute pain of left shoulder Start: 2024 End: 2024 Patient encounter procedure Griselda Kuns DO Work Phone: [facility] Start: 2024 End: 2024 ambulatory Griselda Kuns DO Work Phone: [facility] Work Phone: Start: 11-19-2024 End: 11-19-2024 ambulatory Griselda Kuns DO Work Phone: [facility] Work Phone: Start: 11-19-2024 End: 11-19-2024 Patient encounter procedure Griselda Kuns DO Work Phone: [facility] Physician [facility] Work Phone: Start: 11-17-2024 End: 11-17-2024 ambulatory Griselda Kuns DO Work Phone: [facility] Work Phone: Start: 11-17-2024 End: 11-17-2024 Patient encounter procedure Griselda Kuns DO Work Phone: [facility] Work Phone: Start: 11-12-2024 End: 11-12-2024 Bamboo flowsheet Oziel Cadena MD Work Phone: [facility] Start: 11-12-2024 End: 11-12-2024 Bamboo flowsheet Oziel Cadena MD Work Phone: [facility] Start: 11-12-2024 End: 11-12-2024 Clinical Support Oziel Cadena MD Work Phone: [facility] Comment on above: Nerve root and plexu s disorder, unspecified (Primary Dx); Acute pain of left shoulder Start: 11-07-2024 End: 11-07-2024 ambulatory RACQUEL COLE Facility:[facility] Start: 11-05-2024 Non-patient / Non-visit Griselda Hastings DO Work Phone: [facility] Work Phone: Start: 11-05-2024 End: 11-05-2024 Admission to same day surgery center Griselda Hastings DO Work Phone: [facility]-Digestive [facility] Work Phone: Start: 11-05-2024 End: 11-05-2024 ambulatory Imad Asaad Facility:[facility] Start: 11-03-2024 End: 11-03-2024 Telephone encounter Racquel Cole MD Work Phone: Hematology/Oncology Comment on above: Orders Start: 11-03-2024 Non-patient / Non-visit Griselda Hastings DO Work Phone: [facility] 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] Start: 10-27-2024 End: 10-27-2024 ambulatory Griselda Kuns DO Work Phone: [facility] Work Phone: Start: 10-27-2024 End: 10-27-2024 Patient encounter procedure Griselda Kuns DO Work Phone: [facility] Work Phone: Start: 10-21-2024 End: 10-21-2024 Subsequent hospital visit by physician Rad External Film EF RAD EXTERNAL [employer]M [employer] Comment on above: Arrived Start: 10-21-2024 End: 10-21-2024 ambulatory [facility] Start: 10-13-2024 End: 10-13-2024 Office outpatient visit 40 minutes Doretha Harris MD Work Phone: [facility] Comment on above: Status post cervical spinal fusion (Primary Dx) Start: 10-13-2024 End: 10-13-2024 ambulatory [facility] Ambulatory Start: 10-10-2024 End: 10-10-2024 ambulatory Griselda Kuns DO Work Phone: [facility] Work Phone: Start: 10-10-2024 End: 10-10-2024 Patient encounter procedure Griselda Kuns DO Work Phone: [facility] Work Phone: Start: 10-10-2024 End: 10-10-2024 Patient encounter procedure Griselda Kuns DO Work Phone: [facility] Work Phone: Start: 10-10-2024 End: 10-10-2024 ambulatory Griselda Kuns DO Work Phone: [facility] Work Phone: Start: 10-07-2024 End: 10-07-2024 Patient encounter procedure Griselda Kuns DO Work Phone: [facility] Work Phone: Start: 10-07-2024 End: 10-07-2024 ambulatory Griselda Kuns DO Work Phone: [facility] Work Phone: Start: 10-06-2024 End: 10-06-2024 Emergency department patient visit Griselda Kuns DO Work Phone: [facility]-Emergency Room Work Phone: Start: 09-22-2024 End: 09-22-2024 ambulatory Sarina Ramsey MD Facility:[facility] Start: 09-20-2024 End: 09-20-2024 Emergency department patient visit Griselda Kuns DO Work Phone: [facility]-Emergency Room Work Phone: Start: 09-15-2024 End: 09-15-2024 ambulatory Sarina Ramsey MD Facility:[facility] Start: 09-11-2024 End: 09-11-2024 Bamboo flowsheet Oziel Cadena MD Work Phone: [facility] Start: 09-11-2024 End: 09-11-2024 Bamboo flowsheet Oziel Cadena MD Work Phone: [facility] Start: 09-11-2024 End: 09-11-2024 Clinical Support Oziel Cadena MD Work Phone: [facility] Comment on above: Nerve root and plexu s disorder, unspecified (Primary Dx) Start: 09-11-2024 End: 09-11-2024 Patient encounter procedure Griselda Kuns DO Work Phone: [facility] Physician Group-[facility] Work Phone: Start: 09-11-2024 End: 09-11-2024 ambulatory Griselda Kuns DO Work Phone: [facility] Work Phone: Start: 07-31-2024 End: 07-31-2024 Bamboo flowsheet Oziel Cadena MD Work Phone: [facility] Start: 07-31-2024 End: 07-31-2024 Bamboo flowsheet Oziel Cadena MD Work Phone: [facility] Start: 07-31-2024 End: 07-31-2024 Clinical Support Oziel Cadena MD Work Phone: [facility] Comment on above: Nerve root and plexu s disorder, unspecified (Primary Dx) Start: 07-28-2024 End: 07-28-2024 ambulatory Sarina Ramsey MD Facility:[facility] Start: 07-07-2024 End: 07-07-2024 ambulatory [facility] Start: 07-03-2024 End: 07-03-2024 ambulatory Griselda Hastings DO Work Phone: [facility] Work Phone: Start: 07-03-2024 End: 07-03-2024 Patient encounter procedure Griselda Hastings DO Work Phone: [facility] Physician Group-[facility] [place] Work Phone: Start: 07-02-2024 End: 07-02-2024 Bamboo flowsheet Oziel Cadena MD Work Phone: [facility] Start: 07-02-2024 End: 07-02-2024 Bamboo flowsheet Oziel Cadena MD Work Phone: [facility] Start: 07-02-2024 End: 07-02-2024 Clinical Support Oziel Cadena MD Work Phone: [facility] Comment on above: Nerve root and plexu s disorder, unspecified (Primary Dx) Start: 06-30-2024 End: 06-30-2024 Postop follow up visit related to original px Doretha Harris MD Work Phone: [facility] Comment on above: Status post cervical spinal fusion (Primary Dx) Start: 06-30-2024 End: 06-30-2024 ambulatory [facility] Ambulatory Start: 06-24-2024 End: 06-24-2024 Patient encounter procedure Griselda Hastings DO Work Phone: [facility]-XRay [facility] Work Phone: Start: 06-24-2024 End: 06-24-2024 ambulatory Griseldakeith Hastings DO Work Phone: [facility] Work Phone: Start: 05-21-2024 End: 05-21-2024 Bambojake flowspeggy Cadena MD Work Phone: [facility] Start: 05-21-2024 End: 05-21-2024 Lorenza flowsheet Oziel Cadena MD Work Phone: [facility] Start: 05-21-2024 End: 05-21-2024 Clinical Support Oziel Cadena MD Work Phone: [facility] Comment on above: Other nerve root and plexus disorders (Primary Dx); Cervical paraspinal muscle spasm; Cervical stenosis of spinal canal Start: 04-30-2024 End: 04-30-2024 Postop follow up visit related to original px Solomon Narayanan PA-C Work Phone: [facility] Comment on above: Cervical radiculopat hy (Primary Dx); Status post cervical spinal fusion; Acute postoperative pain; Muscle spasms of neck Start: 04-30-2024 End: 04-30-2024 [facility] Start: 04-28-2024 End: 04-28-2024 ambulatory [facility] Work Phone: Start: 04-28-2024 End: 04-28-2024 Patient encounter procedure [facility] Physician Group-[facility] Cardiology Work Phone: Start: 04-09-2024 End: 04-10-2024 ambulatory [facility] Start: 04-09-2024 End: 04-10-2024 Evaluation and management of inpatient Doretha Harris MD Work Phone: [facility] Kassandra Chu 4 Comment on above: Cervical radiculopat hy (Primary Dx); Senile osteoporosis Start: 04-01-2024 End: 04-01-2024 ambulatory [facility] Work Phone: Start: 04-01-2024 End: 04-01-2024 Patient encounter procedure [facility] Physician Group[facility] [place] Work Phone: Start: 03-31-2024 End: 03-31-2024 Subsequent hospital visit by physician Rad External Film EF RAD EXTERNAL [employer]M [employer] Comment on above: Arrived Start: 03-31-2024 End: 03-31-2024 ambulatory [facility] Start: 03-26-2024 End: 03-26-2024 ambulatory [facility] Start: 03-19-2024 End: 03-19-2024 [facility] Start: 02-13-2024 End: 02-13-2024 Subsequent hospital visit by physician Kasey X-Ray [facility] Comment on above: Cervical radiculopat hy Start: 02-13-2024 End: 02-13-2024 ambulatory [facility] Start: 02-13-2024 End: 02-13-2024 ambulatory [facility] Start: 02-11-2024 End: 02-12-2024 ambulatory [facility] Start: 02-11-2024 End: 02-11-2024 ambulatory [facility] Start: 02-11-2024 End: 02-11-2024 Subsequent hospital visit by physician Daniel [id number] Cr Nonv1 Holter/Ecg Resource [facility] Comment on above: Cervical radiculopat hy; Senile osteoporosis Start: 02-04-2024 End: 02-04-2024 ambulatory GRISELDA R KUNS [facility] Start: 01-31-2024 End: 01-31-2024 ambulatory [facility] Work Phone: Start: 01-31-2024 End: 01-31-2024 Patient encounter procedure [facility]ly [facility] Physician Group-[facility] Family [facility] [place] Work Phone: Start: 01-03-2024 End: 01-03-2024 Office outpatient new 60 minutes Doretha Harris MD Work Phone: [facility] Comment on above: Cervical radiculopat hy (Primary Dx); Senile osteoporosis Start: 12-13-2023 End: 12-13-2023 Office outpatient visit 40 minutes Helder Jack MD Work Phone: [facility] 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) Start: 12-13-2023 End: 12-13-2023 ambulatory HELDER JACK [facility] Start: 12-13-2023 End: 12-13-2023 Subsequent hospital visit by physician [facility] 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) Start: 12-13-2023 End: 12-13-2023 ambulatory SHIMON HEATON [facility] Start: 12-12-2023 End: 12-12-2023 Office outpatient new 45 minutes Solomon Narayanan PA-C Work Phone: [facility] Comment on above: Cervical radiculopat hy (Primary Dx); Occipital neuralgia of left side; Balance problem Start: 12-03-2023 End: 12-03-2023 ambulatory DO Griselda Kuns Work Phone: [facility] Work Phone: Start: 12-03-2023 End: 12-03-2023 Patient encounter procedure DO Griselda Kuns Work Phone: [facility] [place] Work Phone: Start: 11-02-2023 End: 11-02-2023 Office outpatient visit 25 minutes Racquel Cole MD Work Phone: Hematology/Oncology Comment on above: 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 Work Phone: Start: 10-05-2023 End: 10-05-2023 Office outpatient new 60 minutes Helder Jack MD Work Phone: [facility] Comment on above: Brainstem lesion (Pr imary Dx); Pontine glioma (Multi) Start: 09-19-2023 End: 09-19-2023 Subsequent hospital visit by physician Rad External Film EF RAD EXTERNAL FILM VIRTUAL Comment on above: Arrived Start: 09-05-2023 End: 09-05-2023 ambulatory DO Griselda Kuns Work Phone: [facility] Work Phone: Start: 09-05-2023 End: 09-05-2023 Patient encounter procedure DO Griselda Kuns Work Phone: [facility] Physician [facility] Cardiology Work Phone: Start: 09-05-2023 End: 09-05-2023 ambulatory DO Griselda Kuns Work Phone: [facility] Work Phone: Start: 09-05-2023 End: 09-05-2023 Patient encounter procedure DO Griselda Kuns Work Phone: [facility] Physician [facility] V[facility] Surgery Work Phone: Start: 08-15-2023 End: 08-15-2023 Patient encounter procedure DO Griselda Kuns Work Phone: [facility] Physician [facility] [place] Work Phone: Start: 08-02-2023 End: 08-02-2023 ambulatory DO Griselda Kuns Work Phone: [facility] Work Phone: Start: 08-02-2023 End: 08-02-2023 Patient encounter procedure DO Griselda Kuns Work Phone: [facility] Physician [facility] [place] Work Phone: Start: 07-26-2023 Chart abstracting Nikole Mota WALL WASHER Work Phone: [facility] [address] Start: 07-19-2023 Bamboo flowsheet Nikole Mota WALL WASHER Work Phone: [facility] Start: 07-19-2023 Bamboo flowsheet Nikole Mota WALL WASHER Work Phone: [facility] Start: 07-18-2023 End: 07-21-2023 ambulatory JOSE CRUZ DUENASMERLIN [facility] Start: 07-02-2023 End: 07-02-2023 ambulatory Griselda Kuns Other [employer] Other Start: 07-02-2023 Office outpatient vi sit 25 minutes Griselda Kuns [facility] [place] Start: 07-02-2023 End: 07-02-2023 Patient encounter procedure DO Griselda Kuns Work Phone: [facility] Physician Group[facility] Work Phone: Start: 05-31-2023 End: 05-31-2023 ambulatory Griselda Kuns Other [employer] Other Start: 05-31-2023 Office outpatient vi sit 25 minutes Griselda Kuns [facility] Start: 05-30-2023 Office outpatient vi sit 15 minutes Ruddy Harvey [facility] Start: 05-30-2023 End: 05-30-2023 ambulatory DO Griselda Kuns Work Phone: [place] [employer] Other Start: 05-30-2023 End: 05-31-2023 Patient encounter procedure DO Griselda Kuns Work Phone: [facility]-Ultrasound [facility] Start: 05-30-2023 End: 05-30-2023 Patient encounter procedure DO Griselda Kuns Work Phone: [facility]ician [facility] Vascular Surgery Work Phone: Start: 05-15-2023 End: 05-15-2023 ambulatory Lilliam Kamla Other [employer] Other Start: 05-15-2023 Office outpatient vi sit 25 minutes Lilliam Kamla [facility] Start: 05-15-2023 Telephone encounter 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 Start: 05-15-2023 End: 05-15-2023 Patient encounter procedure DO Griselda Kuns Work Phone: [facility] Physician Group[facility] Work Phone: Start: 05-07-2023 [...] [facility] [place] Work Phone: Start: 05-03-2023 End: 05-03-2023 ambulatory Ruddy Harvey Other [employer] Other Start: 05-03-2023 Office outpatient ne w 45 minutes Ruddy Harvey [facility] Vascular Surgery Start: 05-03-2023 Telephone encounter Ruddy craft [facility] [employer] Start: 05-01-2023 End: 05-01-2023 ambulatory Griselda Kuns Other [employer] Other Start: 05-01-2023 Office outpatient vi sit 25 minutes Griselda Kuns [facility] [place] Start: 04-25-2023 End: 04-25-2023 ambulatory DO Griselda Kuns Work Phone: [facility] Work Phone: Start: 04-25-2023 End: 04-25-2023 Patient encounter procedure DO Griselda Kuns Work Phone: [facility]-Ultrasound [place] Work Phone: Start: 04-12-2023 End: 04-12-2023 ambulatory Lilliam Grecooroge Other [employer] Other Start: 04-12-2023 Telephone encounter Lilliam Kamla [facility] Start: 04-11-2023 End: 04-11-2023 ambulatory Lilliam Kamla Other [employer] Other Start: 04-11-2023 Office outpatient ne w 45 minutes Lilliam Kamla [facility] Start: 04-10-2023 End: 04-10-2023 ambulatory Griselda Kuns Other [employer] Other Start: 04-10-2023 Telephone encounter Griselda Kuns [facility] [place] Start: 03-30-2023 End: 03-30-2023 ambulatory DO Griselda Kuns Work Phone: [facility] Work Phone: Start: 03-30-2023 End: 03-30-2023 Patient encounter procedure DO Griselda Kuns Work Phone: [facility]-Lab [place] Work Phone: Start: 03-21-2023 End: 03-21-2023 Emergency department patient visit DO Griselda Kuns Work Phone: [facility]-Emergency Room Work Phone: Start: 03-15-2023 End: 03-15-2023 ambulatory Griselda Kuns Other [employer] Other Start: 03-15-2023 Office outpatient vi sit 25 minutes Griselda Kuns [facility] [place] Start: 03-08-2023 End: 03-08-2023 ambulatory Griselda Kuns Other [employer] Other Start: 03-08-2023 Office outpatient vi sit 25 minutes Griselda Kuns [facility] Start: 02-26-2023 End: 02-26-2023 Emergency department patient visit DO Griselda Kuns Work Phone: [facility]-Emergency Room Work Phone: Start: 12-28-[address] BRET Lawrence ity:UNKNOWN Start: 12-05-2022 End: 12-05-2022 ambulatory Griselda Kuns Other [employer] Other Start: 12-05-2022 Office outpatient vi sit 25 minutes Griselda Kuns [facility] Start: 11-15-2022 End: 11-15-2022 ambulatory DO Griselda Kuns Work Phone: [facility] Work Phone: Start: 11-15-2022 End: 11-15-2022 Patient encounter procedure DO Griselda Kuns Work Phone: [facility]-MRI [address] Work Phone: Start: 10-27-2022 End: 10-27-2022 Subsequent hospital visit by physician Arrival Time Radiology Work Phone: [facility]iology [facility] Comment on above: Malignant neoplasm o f head, 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] Start: 10-24-2022 End: 10-24-2022 ambulatory DO Griselda Kuns Work Phone: [facility] Work Phone: Start: 10-24-2022 End: 10-24-2022 Patient encounter procedure DO Griselda Kuns Work Phone: [facility]-Lab [place] Work Phone: Start: 09-28-2022 End: 09-28-2022 ambulatory FLORES R SULLINGER Facility:[facility] Start: 09-22-2022 End: 09-22-2022 Subsequent hospital visit by physician Jonelle Hernandez (I-Stat/3t) Work Phone: Radiology Comment on above: 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] Start: 09-18-2022 Telephone encounter Kelly ghosh PA-C Work Phone: [facility] [place] Comment on above: Patient Question Start: 09-13-2022 End: 09-13-2022 Patient encounter procedure Kelly Perez PA-C Work Phone: [facility] Comment on above: NPH (normal pressure hydrocephalus) (HCC) (Primary Dx) Start: 08-31-2022 End: 08-31-2022 ambulatory Griselda Kuns Other [employer] Other Start: 08-31-2022 Office outpatient vi sit 25 minutes Griselda Kuns [facility] Start: 08-01-2022 End: 08-01-2022 ambulatory Griselda Kuns Other [employer] Other Start: 08-01-2022 Office outpatient vi sit 25 minutes Griselda Kuns [facility] Start: 07-17-2022 End: 07-17-2022 ambulatory DO Griselda Kuns Work Phone: [facility] Work Phone: Start: 07-17-2022 End: 07-17-2022 Patient encounter procedure DO Griselda Kuns Work Phone: [facility]-XRay [place] Work Phone: Start: 07-14-2022 End: 07-14-2022 Patient encounter procedure DO Griselda Kuns Work Phone: [facility]-CT Scan [place] Work Phone: Start: 06-28-2022 End: 06-28-2022 ambulatory Trish Blades Other [employer] Other Start: 06-28-2022 Office outpatient ne w 45 minutes Trish Blades [facility] Neurosurgery Start: 05-26-2022 End: 05-26-2022 ambulatory Griselda Kuns Other [employer] Other Start: 05-26-2022 Office outpatient vi sit 25 minutes Griselda Kuns [facility] Start: 05-17-2022 End: 05-17-2022 ambulatory DO Griselda Kuns Work Phone: [facility] Work Phone: Start: 05-17-2022 End: 05-17-2022 Discharged Recurring DO Griselda Kuns Work Phone: [facility]-Physical Therapy [address] Start: 04-27-2022 Registered Recurring DO Griselda Kuns Work Phone: [facility]-Physical Therapy [address] Start: 04-16-2022 End: 04-17-2022 Emergency department patient visit DO Griselda Kuns Work Phone: [facility]-Emergency Room Start: 04-10-2022 End: 04-10-2022 ambulatory Griselda Kuns Other [facility] [place] [employer] Other Start: 04-10-2022 Telephone encounter Griselda Kuns [facility] Start: 04-06-2022 End: 04-06-2022 Emergency department patient visit DO Griselda Kuns Work Phone: [facility]-Emergency Room Start: 03-27-2022 Telephone encounter Asya Reynolds RN Hematology/Oncology Comment on above: Appointment Start: 03-22-2022 End: 03-22-2022 ambulatory Griselda Kuns Other [employer] Other Start: 03-22-2022 Telephone encounter [facility] Start: 03-16-2022 End: 03-16-2022 ambulatory Griselda Kuns Other [employer] Other Start: 03-16-2022 Office outpatient vi sit 25 minutes [facility]isel[facility]uns [facility] Start: 03-16-2022 Telephone encounter Self [facility] Comment on above: Triage (Internal Ref erral--old) Start: 03-09-2022 End: 03-09-2022 ambulatory Griselda Kuns Other [employer] Other Start: 03-09-2022 Telephone encounter Griselda Kuns [facility] Start: 03-07-2022 End: 03-07-2022 ambulatory Griselda Kuns Other [employer] Other Start: 03-07-2022 Telephone encounter Griselda Kuns [facility] Start: 03-03-2022 Telephone encounter Griselda Kuns [facility] Start: 03-03-2022 End: 03-03-2022 ambulatory DO Griselda Kuns Work Phone: [employer] Other Start: 03-03-2022 End: 03-03-2022 Discharged Recurring DO Griselda Kuns Work Phone: [facility]-Physical Therapy [address] Start: 03-03-2022 Registered Recurring DO Griselda Kuns Work Phone: [facility]-Physical Therapy [address] Start: 02-07-2022 End: 02-07-2022 ambulatory Griselda Kuns Other [employer] Other Start: 02-07-2022 Telephone encounter Griselda Kuns [facility] Start: 01-30-2022 End: 01-30-2022 ambulatory Griselda Kuns Other [employer] Other Start: 01-30-2022 Office outpatient vi sit 25 minutes Griselda Kuns [facility] [place] Start: 01-12-2022 End: 01-12-2022 ambulatory Griselda Kuns Other [employer] Other Start: 01-12-2022 Telephone encounter Griselda Kuns [facility] [place] Start: 12-26-2021 End: 12-26-2021 ambulatory Griselda Kuns Other [employer] Other Start: 12-26-2021 Office outpatient vi sit 25 minutes Griselda Kuns [facility] [place] Start: 12-23-2021 End: 12-23-2021 ambulatory Griselda Kuns Other [employer] Other Start: 12-23-2021 Telephone encounter Griselda Kuns [facility] [place] Start: 12-05-2021 End: 12-05-2021 ambulatory Griselda Kuns Other [employer] Other Start: 12-05-2021 Office outpatient vi sit 25 minutes Griselda Kuns [facility] [place] Start: 12-05-2021 Telephone encounter Griselda Kuns [facility] [place] Start: 11-22-2021 End: 11-22-2021 ambulatory Griselda Kuns Other [employer] Other Start: 11-22-2021 Telephone encounter Griselda Kuns [facility] [place] Start: 11-21-2021 Office outpatient vi sit 15 minutes Griselda R Kuns Work Phone: [facility] Work Phone: Start: 11-09-2021 End: 11-09-2021 ambulatory Griselda Kuns Other [employer] Other Start: 11-09-2021 Telephone encounter Griselda Hastings [facility] Start: 11-08-2021 End: 11-08-2021 ambulatory Griselda Hastings Other [employer] Other Start: 11-08-2021 Office outpatient vi sit 25 minutes Griselda Andreas [facility] Start: 11-03-2021 Office consultation new/estab patient 60 min Griselda R Darling Work Phone: [facility] Work Phone: Start: 11-01-2021 End: 11-01-2021 ambulatory Griselda Hastings Other [place] [employer] Other Start: 11-01-2021 Office outpatient vi sit 25 minutes Griseldakeith Hastings [facility] Start: 10-31-2021 End: 10-31-2021 ambulatory Sheng Schneider Other [employer] Other Start: 10-31-2021 Telephone encounter Sheng Clark [facility] Neurosurgery Start: 10-27-2021 End: 10-27-2021 ambulatory Racquel Cole MD Work Phone: Hematology/Oncology Comment on above: 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); Lung nodules; Malignant neoplasm of head, face and neck (HCC) Start: 10-27-2021 End: 10-27-2021 Telemedicine consultation with patient Racquel Cole MD Work Phone: [place] Start: 10-24-2021 End: 10-24-2021 ambulatory Sheng Schneider Other [employer] Other Start: 10-24-2021 Office outpatient ne w 30 minutes Sheng Schneider [facility] Neuro[facility] Start: 10-13-2021 Telephone encounter Racquel kapoor [...] 10-06-2021 End: 10-06-2021 ambulatory Griselda Kuns Other [employer] Other Start: 10-06-2021 Telephone encounter Asya Kumar RN Hematology/Oncology Comment on above: Results Start: 10-06-2021 End: 10-06-2021 Subsequent hospital visit by physician Arrival Time Radiology Work Phone: Radiology [facility] Comment on above: Malignant neoplasm o f head, 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] Start: 09-29-2021 End: 09-29-2021 ambulatory Griselda Kuns Other [employer] Other Start: 09-29-2021 Telephone encounter Griselda Kuns [facility] Start: 09-27-2021 End: 09-27-2021 ambulatory Griselda Kuns Other [employer] Other Start: 09-27-2021 Telephone encounter Griselda Kuns [facility] Start: 09-19-2021 End: 09-19-2021 ambulatory Griselda Kuns Other [employer] Other Start: 09-19-2021 Office outpatient vi sit 25 minutes Griselda Kuns [facility] [place] Start: 09-12-2021 End: 09-12-2021 ambulatory Griselda Kuns Other [employer] Other Start: 09-12-2021 Telephone encounter Griselda Kuns [facility] Start: 09-08-2021 End: 09-08-2021 ambulatory Griselda Kuns Other [employer] Other Start: 09-08-2021 Telephone encounter Griselda Kuns [facility] Start: 06-30-2021 End: 06-30-2021 ambulatory Griselda Kuns Other [employer] Other Start: 06-30-2021 Office outpatient vi sit 15 minutes Griselda Kuns [facility] Start: 06-30-2021 Telephone encounter Griselda Kuns [facility] Start: 06-29-2021 End: 06-29-2021 ambulatory Griselda Kuns Other [employer] Other Start: 06-29-2021 Nursing evaluation o f patient and report [facility]isel[facility] Start: 04-19-2021 End: 04-19-2021 ambulatory Griselda Kuns Other [employer] Other Start: 04-19-2021 Nursing evaluation o f patient and report Griselda Kuns [facility] Start: 04-19-2021 Telephone encounter Griselda Kuns [facility] Start: 04-14-2021 Office outpatient vi sit 15 minutes Griselda Kuns [facility] Start: 10-01-2020 End: 10-01-2020 Patient encounter procedure Griselda Kuns Work Phone: -Electrodiagnostics Start: 09-20-2020 End: 09-20-2020 Patient encounter procedure Griselda Andreas -Lab [facility] Start: 09-13-2020 End: 09-13-2020 Patient encounter procedure Griselda Andreas -XRay [facility] Procedures Date Procedure Procedure Detail Performing [...] Work Phone: Start: 09-20-2024 Respiratory Panel (PCR) Grisedla Kuns DO Work Phone: Start: 09-20-2024 Plain [...] 05-04-2023 CT angiography of head DO Griselda SproutBoxroge Work Phone: Start: 05-04-2023 CT angiography of neck vessels DO Griselda SproutBoxroge Work Phone: Start: 04-25-2023 Pulse volume recorder pneumoplethysmography DO Griselda Sprout[employer]roge Work Phone: Start: 02-26-2023 SARS Antigen (LFIA) DO Griseldakeith [place] Work Phone: Start: 11-15-2022 MR lumbar spine wo con DO Griselda SproutBoxroge Work Phone: Start: 11-15-2022 XR pre/post mri [...] CT of head without contrast DO Griselda SproutBox roge Work Phone: Start: 04-16-2022 Plain chest [...] RSV Vaccine (1 - 1-dose 75+ series) [facility] Start: 04-10-2027 Diabetes Screening Diabetes Screening [facility] Start: 10-25-2026 Diabetes Screening Diabetes Screening [facility] Start: 02-12-2026 Screening for osteoporosis Bone Density Scan [facility] Start: 01-08-2026 End: 01-08-2026 Patient encounter procedure TRENT ZEE Start: 04-06-2025 End: 04-06-2025 Patient encounter procedure 04/06/2025 9:30 AM EDT Office Visit [facility] [address] [facility] [address] [place] [phone] Doretha Harris MD [address] [place] [address] [facility] Start: 03-18-2025 End: 03-18-2025 Clinical Support 03/18/2025 2:20 PM EDT Clinical Support [facility] [address] [place] [phone] Oziel Cadena MD [address] [facility] [address] [place] [address] [place] [address] [id number] [facility] Start: 02-26-2025 Ankle brachial pressure index [facility] Start: 02-16-2025 Influenza vaccination [facility] Start: 02-04-2025 End: 02-04-2025 Clinical Support [facility] Comment on above: Arrived Start: 01-08-2025 End: 01-08-2025 Patient encounter procedure [facility] Comment on above: Arrived Start: 01-01-2025 End: 01-01-2025 Patient encounter procedure 01/01/2025 10:30 AM EDT Office Visit [facility] [address] [place] [phone] Anahi Franco PA [address] [place] [phone] [facility] Start: 12-24-2024 End: 12-24-2024 Clinical Support [facility] Comment on above: Arrived Start: 11-12-2024 End: 11-12-2024 Clinical Support [facility] Comment on above: Arrived Start: 11-07-2024 End: 11-07-2024 Follow-up encounter Hematology/Oncolog y Comment on above: [address] and lab Start: 11-05-2024 [facility] Start: 11-03-2024 End: 02-02-2025 Comprehensive metabolic 2000 panel - Serum or Plasma COMPREHENSIVE METABOLIC PANEL Lab Routine 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) Expected: 11/03/2024 (Approximate), Expires: 02/02/2025 [facility] Work Phone: Comment on above: Expected: 11/03/2024 (Approximate), Expi res: 02/02/2025 Start: 11-03-2024 End: 11-03-2024 Patient encounter procedure 11/03/2024 9:00 AM EDT Appointment Radiology Pet CT [address] [place] [address] [place] [address] Ct Chest and neck with contrast and lab Radiology Pet CT Comment on above: Ct Chest and neck with contrast and lab Start: 11-01-2024 End: 11-01-2024 CBC W Auto Differential panel - Blood COMPLETE BLOOD COUNT AND DIFFERENTIAL Lab Routine 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) Expected: 11/01/2024 (Approximate), Expires: 11/01/2024 [facility] Comment on above: Expected: 11/01/2024 (Approximate), Expi res: 11/01/2024 Start: 11-01-2024 End: 11-01-2024 Comprehensive metabolic 2000 panel - Serum or Plasma COMPREHENSIVE METABOLIC PANEL Lab Routine 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) Expected: 11/01/2024 (Approximate), Expires: 11/01/2024 [facility] Comment on above: Expected: 11/01/2024 (Approximate), Expi res: 11/01/2024 Start: 11-01-2024 End: 12-01-2024 CT Chest W contrast IV CT CHEST W IVCON Radiology Routine 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) Expected: 11/01/2024 (Approximate), Expires: 12/01/2024 [facility] Comment on above: Expected: 11/01/2024 (Approximate), Expi res: 12/01/2024 Start: 11-01-2024 End: 12-01-2024 CT Neck W contrast IV CT NECK SOFT TISSUE W IVCON Radiology Routine 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) Expected: 11/01/2024 (Approximate), Expires: 12/01/2024 [facility] Work Phone: Comment on above: Expected: 11/01/2024 (Approximate), Expi res: 12/01/2024 Start: 10-10-2024 X-ray of cervical spine XR cervical spine 2V [facility] Start: 10-10-2024 XR Cervical spine 2 Views [facility] Start: 10-06-2024 DIABETES SCREEN DIABETES SCREEN [facility] Start: 09-29-2024 End: 09-29-2024 Patient encounter procedure 09/29/2024 11:00 AM EDT Office Visit [facility] [address] [facility] [address] [place] [phone] Doretha Harris MD [address] [facility] [place] [address] [place] [address] [facility] Start: 09-11-2024 End: 09-11-2024 Clinical Support 09/11/2024 10:40 AM EDT Clinical Support [facility] [address] [facility] [address] [place] [address] Oziel Cadena MD [address] [place] [address], [place] [id number] [facility] Start: 09-11-2024 Ankle brachial pressure index US ankle/arm indices [facility] Start: 07-31-2024 End: 07-31-2024 Clinical Support [facility] Comment on above: Arrived Start: 07-02-2024 End: 07-02-2024 Clinical Support [facility] Comment on above: Arrived Start: 06-30-2024 End: 06-30-2025 XR Cervical spine 2 or 3 Views XR cervical spine 2-3 views Imaging Routine Status post cervical spinal fusion Expected: 06/30/2024, Expires: 06/30/2025 [facility] Service Area Work Phone: Comment on above: Expected: 06/30/2024, Expires: Start: 06-30-2024 End: 06-30-2024 Patient encounter procedure [facility] Start: 05-21-2024 End: 05-21-2024 Clinical Support 05/21/2024 2:00 PM EST Clinical Support [facility] [address] [facility] [address] [place] [address] Oziel Cadena MD [address] [facility] [address] [place] [address], [place] [id number] Arrived [facility] Comment on above: Arrived Start: 05-16-2024 End: 05-16-2024 Patient encounter procedure 05/16/2024 9:15 AM EST Office Visit [facility] [address] [facility] [address] [place] [phone] Doretha Harris MD [address] [facility] [place] [address] [place] [address] [facility] Start: 05-02-2024 End: 05-02-2024 Patient encounter procedure [facility] [place] Start: 04-30-2024 End: 04-30-2025 XR Cervical spine 2 or 3 Views XR cervical spine 2-3 views Imaging Routine Cervical radiculopathy Status post cervical spinal fusion Expected: 04/30/2024, Expires: 04/30/2025 [facility] Service Area Work Phone: Comment on above: Expected: 04/30/2024, Expires: Start: 04-30-2024 End: 04-30-2024 Patient encounter procedure 04/30/2024 1:00 PM EST Office Visit [place] [id number] [facility] [address] [phone] Solomon Narayanan PA-C [address] [place], [place] [phone] [facility] Start: 04-09-2024 End: 04-09-2024 Admission to same day surgery center 04/09/2024 7:45 AM EDT - 04/09/2024 12:25 PM EDT Surgery [facility] [place] [address] [place] [address] Doretha Harris MD [address] [facility] [place] [address] [place] [address] Fusion Spine Anterior Cervical and Discectomy C5-6, C6-7 [75407 (CPT )] [facility] [place] Comment on above: Fusion Spine Anterior Cervical and Disce ctomy C5-6, C6-7 [89809 (CPT )] Start: 04-09-2024 End: 04-09-2024 Arthrd ant interbody decompress cervical belw c2 Fusion Spine Anterior Cervical and Discectomy Cervical radiculopathy Senile osteoporosis 04/09/2024 7:45 AM EDT [facility] [place] Start: 04-09-2024 Subsequent hospital visit by physician 04/09/2024 7:45 AM EDT Hospital Encounter [facility] [place] [address] [place] [address] Doretha Harris MD [address] [facility] [place] [address] [place] [address] [facility] [place] Start: 03-15-2024 DTaP/Tdap/Td Vaccines (2 - Td or Tdap) DTaP/Tdap/Td Vaccines (2 - Td or Tdap) [facility] Start: 03-15-2024 Urine microalbumin profile DTaP,Tdap,Td Vaccine (2 - Td or Tdap) [facility] Start: 03-11-2024 End: 03-11-2024 Patient encounter procedure 03/11/2024 11:30 AM EDT Office Visit [facility] [address] [facility] [address] [place] [address] Solomon Narayanan PA-C [address] [place], [place] [phone] [facility] Start: 03-03-2024 Influenza vaccination Influenza Vaccine (#1) [facility] Comment on above: Postponed from 02/16/2023 (Patient Refus ed) Start: 02-27-2024 End: 02-27-2024 Admission to same day surgery center [facility] [place] Comment on above: Anterior Cervical Discectomy and Fusion C5-6, C6-7 [31514 (CPT )] Start: 02-27-2024 End: 02-27-2024 Arthrd ant interbody decompress cervical belw c2 [facility] [place] Start: 02-27-2024 Subsequent hospital visit by physician [facility] [place] Start: 02-17-2024 COVID-19 Vaccine ( season) COVID-19 Vaccine ( season) [facility] Start: 02-17-2024 Covid-19 Vaccine ( season) Covid-19 Vaccine () [facility] Start: 02-17-2024 Covid-19 Vaccine ( season) Covid-19 Vaccine () [facility] Start: 02-17-2024 Influenza vaccination [facility] Start: 02-15-2024 End: 02-15-2024 Patient encounter procedure 02/15/2024 9:00 AM EDT Office Visit [address] Linda [address] [phone] Vincenzo Sanchez MD [address] [place] [address] [address], [address] [place] [address] [facility] Start: 02-13-2024 End: 02-13-2024 Patient encounter procedure 02/13/2024 11:00 AM EDT Appointment [place] [address] [place] [address] [facility] Start: 02-03-2024 End: 01-02-2025 Nicotine and Metabolites,S Nicotine and Metabolites,S Lab Routine Cervical radiculopathy Senile osteoporosis Expected: 02/03/2024 (Approximate), Expires: 01/02/2025 [facility] Work Phone: Comment on above: Expected: 02/03/2024 (Approximate), Expi res: 01/02/2025 Start: 01-03-2024 End: 01-02-2025 DXA Skeletal system.axial Views for bone density XR DEXA bone density axial skeleton w VFA Imaging Routine Senile osteoporosis Expected: 01/03/2024, Expires: 01/02/2025 [facility] Service Area Work Phone: Comment on above: Expected: 01/03/2024, Expires: 5 Start: 01-03-2024 End: 01-02-2025 XR Cervical spine 6 Views XR cervical spine complete 6+ views Imaging Routine Cervical radiculopathy Expected: 01/03/2024, Expires: 01/02/2025 [facility] Work Phone: Comment on above: Expected: 01/03/2024, Expires: 5 Start: 01-03-2024 End: 01-03-2024 Patient encounter procedure 01/03/2024 1:30 PM EDT Office Visit [facility] [address] [address] Doretha Harris MD [address] [facility], [address] [address] [facility] Start: 12-13-2023 End: 12-12-2024 MR Brain WO and W contrast IV MR brain w and wo IV contrast Imaging Routine Pontine glioma (Multi) Expected: 12/13/2023 (Approximate), Expires: 12/12/2024 [facility] Area Work Phone: Comment on above: Expected: 12/13/2023 (Approximate), Expi res: 12/12/2024 Start: 12-13-2023 End: 12-13-2023 Patient encounter procedure [facility] Start: 09-28-2023 End: 09-28-2023 Patient encounter procedure 09/28/2023 10:15 AM EDT Office Visit [facility] [address] [place] [phone] [place] [address] Department [place] [address] [facility] Start: 09-05-2023 Ankle brachial pressure index [facility] Start: 08-30-2023 End: 08-30-2023 Patient encounter procedure 08/30/2023 9:40 AM EDT Office Visit [facility] [address] [place] [address] Nikole Mota, WALL WASHER [address] [place] [address], [place] [address] [facility] Start: 07-26-2023 End: 07-26-2023 Patient encounter procedure 07/26/2023 1:30 PM EST Procedure Visit [facility] [address] [place] [address], [place] [address] Nikole Mota, WALL WASHER [address] [place] [address], [place] [address] [facility] [address] Start: 07-19-2023 End: 07-19-2023 Clinical Support 07/19/2023 1:30 PM EST Clinical Support [facility] [address] [place] [address] Nikole Mota, WALL WASHER [address] [place] [address], [place] [address] Cervical dystonia [facility] Comment on above: Cervical dystonia Start: 06-18-2023 Behavioral Health Screening Behavioral Health Screening [facility] Start: 05-07-2023 Pulse volume recorder pneumoplethysmography US arterial pvr rest [facility] Start: 05-07-2023 [facility] Start: 05-07-2023 [facility] Start: 04-25-2023 Pulse volume recorder pneumoplethysmography US arterial pvr rest [facility] Start: 02-16-2023 COVID-19 Vaccine () COVID-19 Vaccine () [facility] Start: 02-16-2023 Influenza vaccination INFLUENZA (Season Ended) [facility] Start: 2022 RSV High Risk: (Elderly (60+) or Population) (1 - Risk 60-74 years 1-dose series) RSV High Risk: (Elderly (60+) or Population) (1 - Risk 60-74 years 1-dose series) [facility] Start: 2022 RSV patients and/or patients aged 60+ years (1 - 1-dose 60+ series) RSV patients and/or patients aged 60+ years (1 - 1-dose 60+ series) [facility] Start: 2022 RSV Vaccine (1 - 1-dose 60+ series) RSV Vaccine (1 - 1-dose 60+ series) [facility] Start: 10-30-2022 End: 10-30-2022 CBC W Auto Differential panel - Blood CBC + DIFF Lab Routine 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) Lung nodules Malignant neoplasm of head, face and neck (HCC) Expected: 10/30/2022 (Approximate), Expires: 10/30/2022 [facility] Work Phone: Comment on above: Expected: 10/30/2022 (Approximate), Expi res: 10/30/2022 Start: 10-30-2022 End: 10-30-2022 Comprehensive metabolic 2000 panel - Serum or Plasma COMP METABOLIC PANEL Lab Routine 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) Lung nodules Malignant neoplasm of head, face and neck (HCC) Expected: 10/30/2022 (Approximate), Expires: 10/30/2022 [facility] Work Phone: Comment on above: Expected: 10/30/2022 (Approximate), Expi res: 10/30/2022 Start: 10-30-2022 End: 11-29-2022 Ct soft tissue neck w/contrast material CT NECK SOFT TISSUE W IVCON Radiology Routine Malignant neoplasm of head, face and neck (HCC) Expected: 10/30/2022 (Approximate), Expires: 11/29/2022 [facility] Work Phone: Comment on above: Expected: 10/30/2022 (Approximate), Expi res: 11/29/2022 Start: 10-30-2022 End: 11-29-2022 Ct thorax w/contrast material CT CHEST W IVCON Radiology Routine Lung nodules Expected: 10/30/2022 (Approximate), Expires: 11/29/2022 [facility] Work Phone: Comment on above: Expected: 10/30/2022 (Approximate), Expi res: 11/29/2022 Start: 10-13-2022 Adult depression screening assessment DEPRESSION SCREENING [facility] Start: 07-17-2022 Aerobic Culture Aerobic Culture [facility] Start: 07-17-2022 Anaerobic Culture Anaerobic Culture [facility] Start: 07-17-2022 Microscopic observation [Identifier] in Unspecified specimen by Gram stain [facility] Start: 07-17-2022 Cerebrospinal fluid culture [facility] Start: 07-17-2022 End: 07-17-2022 [facility] Start: 07-17-2022 [facility] Start: 06-18-2022 DEPRESSION ASSESSMENT DEPRESSION ASSESSMENT [facility] Start: 04-16-2022 Plain chest X-ray XR ribs LT min 3V w [id number]* [facility] Start: 04-16-2022 XR Unspecified body region Views [facility] Start: 02-16-2022 Influenza vaccination [facility] Start: 10-14-2021 Adult depression screening assessment DEPRESSION SCREENING [facility] Start: 06-23-2021 COVID-19 VACCINE (3 - Booster for Pfizer series) COVID-19 VACCINE (3 - Booster for Pfizer series) [facility] Start: 06-18-2021 DEPRESSION ASSESSMENT DEPRESSION ASSESSMENT [facility] Start: 03-18-2021 COVID-19 VACCINE (3 - Booster for Pfizer series) COVID-19 VACCINE (3 - Booster for Pfizer series) [facility] Start: 2017 PROSTATE CANCER SCREENING DISCUSSION PROSTATE CANCER SCREENING DISCUSSION [facility] Start: 2017 Prostate specific antigen measurement Prostate Cancer Screening Discussion [facility] Start: 2012 Pneumococcal Vaccine: 50+ (1 of 1 - PCV) Pneumococcal Vaccine: 50+ (1 of 1 - PCV) [facility] Start: 2012 Screening for malignant neoplasm of lung Lung Cancer Screening [facility] Start: 2012 SHINGRIX VACCINE (1 of 2) SHINGRIX VACCINE (1 of 2) [facility] Start: 2012 Zoster Vaccines (1 of 2) Zoster Vaccines (1 of 2) [facility] Start: 11-25-2007 COLOGUARD (FIT-DNA) COLOGUARD (FIT-DNA) [facility] Start: 11-25-2007 Colonoscopy COLONOSCOPY [facility] Start: 11-25-2007 COLORECTAL CANCER SCREENING COLORECTAL CANCER SCREENING [facility] Start: 11-25-[address] COLONOGRAPHY [facility] Start: 11-25-2007 FECAL OCCULT BLOOD FECAL OCCULT BLOOD [facility] Start: 11-25-2007 Prostate specific antigen measurement Prostate Cancer Screening Discussion [facility] Start: 11-25-2007 Screening for malignant neoplasm of colon [facility] Start: 11-25-2007 SIGMOIDOSCOPY SIGMOIDOSCOPY [facility] Start: 1997 Lipid panel Lipid Screening [facility] Start: 1997 LIPID SCREEN LIPID SCREEN [facility] Start: 1981 Hepatitis A Vaccines (1 of 2 - Risk 2-dose series) Hepatitis A Vaccines (1 of 2 - Risk 2-dose series) [facility] Start: 1981 Pneumococcal vaccination Pneumococcal Vaccine (1 of 2 - PCV) [facility] Start: 1981 Urine microalbumin profile DTAP,TDAP,TD (1 - Tdap) [facility] Start: 1980 Anxiety Screening Anxiety Screening [facility] Start: 1980 Depression Screening Depression Screening [facility] Start: 1980 Diabetes mellitus screening Diabetes Screening [facility] Start: 1980 HEPATITIS C SCREENING HEPATITIS C SCREENING [facility] Start: 1980 Hepatitis C screening Hepatitis C Screening [facility] Start: 1980 HIV SCREENING HIV SCREENING [facility] Start: 1980 HIV screening HIV Screening [facility] Start: 1968 Pneumococcal Vaccine: Pediatrics (0 to 5 Years) and At-Risk Patients (6 to 64 Years) (1 of 2 - PCV) Pneumococcal Vaccine: Pediatrics (0 to 5 Years) and At-Risk Patients (6 to 64 Years) (1 of 2 - PCV) [facility] Start: 11-25-1963 MMR Vaccines (1 of 1 - Standard series) MMR Vaccines (1 of 1 - Standard series) [facility] Start: 1962 Annual wellness visit Welcome to Medicare Visit [facility] Start: 1962 HIV screening HIV Screening [facility] Start: 1962 Lipid panel Lipid Panel [facility] Start: 1962 Screening for malignant neoplasm of colon [facility] Start: 1962 Screening for osteoporosis Bone Density Scan [facility] Start: 1962 Yearly Adult Physical Yearly Adult Physical [facility] Ankle brachial pressure index [facility] Bacteria identified in Cerebral spinal fluid by Culture CSF CULT + STAIN Microbiology Routine NPH (normal pressure hydrocephalus) (HCC) Ordered: 09/13/2022 [facility] Work Phone: Comment on above: Ordered: 09/13/2022 Bacteria identified in Unspecified specimen by Aerobe culture [facility] Bacteria identified in Unspecified specimen by Anaerobe culture [facility] End: 04-12-2024 Basic metabolic 2000 panel - Serum or Plasma Basic metabolic panel Lab Routine Morning draw (Lab) for 3 Occurrences starting 04/10/2024 until 04/12/2024, 1 completed [facility] Work Phone: Comment on above: Morning draw (Lab) for 3 Occurrences sta rting 04/10/2024 until 04/12/2024, 1 completed End: 04-12-2024 CBC panel - Blood by Automated count CBC Lab Routine Morning draw (Lab) for 3 Occurrences starting 04/10/2024 until 04/12/2024, 1 completed [facility] Work Phone: Comment on above: Morning draw (Lab) for 3 Occurrences sta rting 04/10/2024 until 04/12/2024, 1 completed Cell count panel - C erebral spinal fluid CSF CELL COUNT Lab Routine NPH (normal pressure hydrocephalus) (HCC) Ordered: 09/13/2022 [facility] Work Phone: Comment on above: Ordered: 09/13/2022 Cell count, cerebros roberto fluid [facility] Comprehensive metabo lic 2000 panel - Serum or Plasma [facility] End: 04-09-2024 Continuous Pulse oximetry, In Phase 1 Continuous Pulse oximetry, In Phase 1 Respiratory Care Routine Continuous until discontinued starting 04/09/2024 [facility] Work Phone: Comment on above: Continuous until discontinued starting 1 Enolase.neuron speci fic [Mass/volume] in Serum or Plasma by Immunoassay [facility] Fungus identified in Unspecified specimen by Culture [facility] Glucose [Mass/volume ] in Cerebral spinal fluid [facility] Glucose [Mass/volume ] in Serum or Plasma POCT Glucose Point of Care Testing - Docked Device Routine As needed (Lab) until discontinued starting 04/09/2024 [facility] Work Phone: Comment on above: As needed (Lab) until discontinued start ing 04/09/2024 End: 04-09-2024 Incentive spirometry Instruct Incentive spirometry Instruct Respiratory Care Routine Once for 1 Occurrences starting 04/09/2024 until 04/09/2024 [facility] Work Phone: Comment on above: Once for 1 Occurrences starting 04/09/20 until 04/09/2024 IR LP FOR DRAINAGE (PRESSURE) IR LP FOR DRAINAGE (PRESSURE) Radiology Routine NPH (normal pressure hydrocephalus) (HCC) Ordered: 09/13/2022 [facility] Work Phone: Comment on above: Ordered: 09/13/2022 Meningitis+Encephali tis pathogens DNA and RNA panel - Cerebral spinal fluid by JER with non-probe detection [facility] End: 10-20-2023 Mri brain brain stem w/o w/contrast material MRI BRAIN WO/W IVCON Radiology Routine 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HCC) 1 Occurrences starting 09/20/2022 until 10/20/2023 [facility] Work Phone: Comment on above: 1 Occurrences starting 09/20/2022 until 10/20/2023 Patient Education [facility] Work Phone: Patient referral [facility] Work Phone: Protein [Mass/volume ] in Cerebral spinal fluid [facility] End: 04-09-2024 Urethral Catheter Removal Urethral Catheter Removal Procedures Routine Once for 1 Occurrences starting 04/09/2024 until 04/09/2024 [facility] Work Phone: Comment on above: Once for 1 Occurrences starting 04/09/20 until 04/09/2024 Virus identified in Unspecified specimen by Culture [facility] End: 02-13-2024 XR Cervical spine 6 Views [facility] Service A hermila Work Phone: Comment on above: Once for 1 Occurrences starting 02/13/20 until 02/13/2024 XR Chest 2 Views XR chest 2 view s Imaging Routine Cervical radiculopathy Senile osteoporosis 02/13/2024 11:10 AM EDT [facility] Work Phone: XR Chest 2 Views [facility] Immunizations Immunization Date Immunization Notes Care Provider Fa cility 01-21-2021 COVID-19 Vaccine Pfi zer - Documentation Purposes Only Griselda Kuns Other [facility] 12-30-2020 COVID-19 Vaccine Pfi zer - Documentation Purposes Only Griselda Kuns Other [facility] 01-24-2016 KENALOG - 10 mg Griselda Kuns Other [facility] Other 01-27-2015 Toradol per 15 mg Griselda Kuns Other [facility] Other 03-15-2014 tetanus toxoid, redu julienne diphtheria toxoid, and acellular pertussis vaccine, adsorbed Griselda Kuns Other [facility] Other Payers Date Payer Category Payer Self-pay [id number] 2024 Medicare [id number] 2024 Medicare [id number] 2023 Managed Care (Private) [facility] [id number]. [id number] 2022 Private Health Insurance [id number] 2.16.840.1.469812.19 2021 Private Health Insurance [facility] [employer] [id number] 2021-Present [phone] [address] [place] [address] PPO [id number]. [id number] 2019 Medicaid [employer] [id number] 2019-Present [phone] [address] [place] [address] Medicaid [id number]. [id number] 2019 Medicaid [id number] 1.13.159.2. [id number] 2019 Private Health Insurance 1.2 .[id number]. [id number] 2019 Unknown [id number] 2019 Unknown 2019 Unknown [id number] 2.16.840.1.104623.19 1962 Unknown [id number] 2.16.840.1.805869.3.579.2. 693 1962 Unknown [id number] 2.16.840.1.487787.3.579.2. 182 1962 Unknown [id number] 2.16.840.1.613260.3.579.2. 182 1962 Unknown [id number] 2.16.840.1.327023.3.579.2. 1244 1962 Unknown [id number] 2.16.840.1.580783.3.579.2. 1244 1962 Unknown [id number] 2.16.840.1.954786.3.579.2. 1244 1962 Unknown [id number] 2.16.840.1.552922.3.579.2. 1244 1962 Unknown [id number] 2.16.840.1.027624.3.579.2. 1244 1962 Unknown [id number] 2.16.840.1.629245.3.579.2. 1244 1962 Unknown [id number] 2.16.840.1.783597.3.579.2. 1244 1962 Unknown [id number] 2.16.840.1.285334.3.579.2. 1244 1962 Unknown [id number] 2.16.840.1.352777.3.579.2. 1244 1962 Unknown [id number] 2.16.840.1.028518.3.579.2. 1244 1962 Unknown [id number] 2.16.840.1.671777.3.579.2. 1244 1962 Unknown [id number] 2.16.840.1.755229.3.579.2. 1246 1962 Unknown [id number] 2.16.840.1.449769.3.579.2. 1246 1962 Unknown [id number] 2.16.840.1.256029.3.579.2. 1246 1962 Unknown [id number] 2.16.840.1.195119.3.579.2. 1244 1962 Unknown [id number] 2.16.840.1.411009.3.579.2. 1244 1962 Unknown [id number] 2.16.840.1.273459.3.579.2. 1244 1962 Unknown [id number] 2.16.840.1.988370.3.579.2. 9 1962 Unknown [id number] 2.16.840.1.933849.3.579.2. 1258 1962 Unknown [id number] 2.16.840.1.983799.3.579.2. 1258 1962 Unknown [id number] 2.16.840.1.102117.3.579.2. 1258 1962 Unknown [id number] 2.16.840.1.717548.3.579.2. 9 1962 Unknown [id number] 2.16.840.1.726016.3.579.2. 1258 1962 Unknown [id number] 2.16.840.1.116112.3.579.2. 9 1962 Unknown [id number] 2.16.840.1.455142.3.579.2. 1258 1962 Unknown [id number] 2.16.840.1.569276.3.579.2. 1258 1962 Unknown [id number] 2.16.840.1.416004.3.579.2. 196 1962 Unknown [id number] 2.16.840.1.094347.3.579.2. 196 1962 Unknown [id number] 2.16.840.1.997887.3.579.2. 196 1962 Unknown [id number] 2.16.840.1.699769.3.579.2. 196 1962 Unknown [id number] 2.16.840.1.031844.3.579.2. 196 1962 Unknown [id number] 2.16.840.1.426190.3.579.2. 196 Private Health Insurance [id number] Unknown [id number] Unknown [id number] 531 Unknown [id number] 531 Unknown [id number] 531 Unknown [id number]. 531 Unknown [id number] [id number]. 531 Unknown [id number] [id number]. 531 Unknown [id number]. 531 Unknown [id number] [id number]. 531 Unknown [id number]. 531 Social History Date Type Detail Facility Start: 04-29-2018 End: 11-05-2024 Tobacco smoking status NMIS Smoker (finding) [facility] Start: 1960 Sex Assigned At Male [facility] Start: 10-16-2019 Tobacco smoking status NHIS Ex-smoker [facility] Start: 06-18-1973 History of tobacco use Cigarette Smoker [facility] Start: 10-16-2019 End: 09-24-2024 Cigarettes smoked current (pack per day) - Reported 1.5 [facility] Start: 10-16-2019 End: 01-02-2024 Tobacco use and exposure Smokeless tobacco non-user [facility] Start: 10-14-2020 End: 01-08-2025 Alcohol intake Ex-drinker (finding) [facility] Start: 01-20-2019 History SDOH Alcohol Comment quit 2002 [facility] Start: 10-16-2019 Tobacco Comment quit smoking 01/2019 [facility] Start: 1960 Sex Assigned At Not on file [facility] Start: 10-03-2021 End: 10-13-2024 Exposure to SARS-CoV-2 (event) Not sure [facility] Start: 07-03-2023 End: 09-24-2024 Sex Assigned At [facility] Start: 03-10-2022 End: 03-20-2022 Exposure to SARS-CoV-2 (event) Unable to assess [facility] Work Phone: Start: 12-28-2022 End: 11-05-2024 Daily Smoker [facility] Start: 03-13-2023 Tobacco Comment 6-10 cigarettes/day [facility] Start: 09-20-2022 Gender identity Identifies as male gender (finding) [facility] Start: 09-20-2022 Sexual orientation Heterosexual (fin ding) [facility] Tobacco smoking status NHIS Tobacco smoking consumption unknown [facility] Work Phone: Start: 10-05-2023 End: 01-03-2024 Alcoholic beverage intake Lifetime non-drinker (finding) [facility] Work Phone: Adult Depression Screening Assessment 2 [facility] How often to you hav e a drink containing alcohol? Never [facility] In the past 12 months, was there a time when you were not able to pay the mortgage or rent on time? No [facility] Work Phone: Start: 04-28-2024 End: 11-25-2024 Sex Male (finding) [facility] NEGATED: Highlighted rowStart: NINF History of tobacco use Passive smoker [facility] Work Phone: Medical Equipment Procedure Code Equipment Code Equipment Origin al Text Equipment Identifier Dates Angiogram, lower extremity, left Multiple peripheral artery stent, bare-metal [id number] Start: 05-07-2023 Allograft, Triad Lordotic 6 X 11 X 14 - [id number] - [id number] Start: 04-09-2024 Allograft, Triad Lordotic 6 X 11 X 14 - [id number] - [id number] Start: 04-09-2024 Plate, Acp, 1.6v , 2 Level, 34mm - [id number] Start: 04-09-2024 Screw, Acp, Self Drill, 3.5 X 17mm, Variable - [id number] Start: 04-09-2024 3.5 X 19mm Screw [id number] Start: 04-09-2024 Comment on above: Description: per juan carlos l only jdr 04/10 Goals Date Patient Goal Desired Activity /State Personal health goal Functional Status Date Assessment Result Facility 10-13-2024 Patient Health [facility] ionnaire 2 item (PHQ-2) [Reported] [facility] Work Phone: 10-13-2024 PHQ-9 quick depressi on assessment panel [Reported.PHQ] [facility] Work Phone: Clinical Notes 11-03-2008 to 02-19-2025 Note Date & Type Note Facility 02-19-2025 Evaluation note Authored February 19, 2025 5:18pm Sooner if needed, the ER if concerns,The above note written by Shilpi Lantigua LPN acting as human recorder, note dictated by Dr. Grsielda Hastings [facility] Work Phone: 1(419) 769-188408-20-2025 History of Present illness Narrative* Oziel Cadena MD - 02/04/2025 2:30 PM EDT Images from the original note were not included. Subjective Shantel Meelndez is a 64 y.o. male who presents [...] to alleviate the pain. documented in this encounterCrittenton Behavioral [id number] Evaluation note* Diagnosis Onset Date Resolution Status [...] prostate cancer acute February 19, 2025 10:28am [facility] Work Phone: 1(190) 158-322007-24-2025 History of Present illness Narrative* UQENTIN Vail - 01/08/2025 10:20 AM EDT Skin [...] INFLAMED SEBORRHEIC KERATOSIS Left Wrist - Anterior [place] and brown stuck on verrucous scaly papule [...] limited to risks of scarring, darker or field map technician pigmentary changes, recurrence, incomplete removal and infection. [...] limited to risks of scarring, darker or field map technician pigmentary changes, recurrence, incomplete removal and infection. [...] 1 year, skin check documented in this encounterCrittenton Behavioral [id number] History of Present illness Narrative* Oziel Cadena [...] spinal cord stimulator, as suggested by his paint preparer, and is scheduled to see his doctor [...] injection was administered today. documented in this [facility]06-04-2025 Evaluation note* Author Shilpi Lantigua [facility] Authored November 19, 2024 2:36p m Sooner if needed, the ER if concerns,The above note written by Shilpi Lantigua LPN acting as human recorder, note dictated by Dr. Griselda Hastings [facility] Work Phone: 1(215) 259-679605-28-2025 History of Present illness Narrative* Oziel Cadena [...] ezetimibe (ZETIA) 10 mg, Oral, Daily HYDROcodone-acetaminophen ([place]) 5-325 MG tablet take 1 tablet orally [...] Depression: Not at risk (11/05/2024) Received from [facility] PHQ-2 PHQ-2 score: 2 REVIEW OF [...] Ana Luisa's absent. Ankle clonus absent. Coordination Xtzaoc-jv-slfr, rapid alternating movements and ftdu-lm-znlo normal bilaterally without dysmetria. Gait Normal casual, [...] the injections if needed. documented in this encounterCrittenton Behavioral [id number] NoteHNO ID: [id number] Author: RACQUEL COLE MD Service: ? Author Type: Physician Type: Progress Notes Filed: 11/07/2024 11:09 Note Text: NAME: DilanShantel CLINIC NO.: [id number] DATE OF SERVICE: November 07, 2024 (Curtis) Some elements in this clinic note that are critical to medical decision making have been carefully reviewed and included from a prior clinic note dated: November 02, 2023 (Curtis) Referring Provider: Griselda Hastings DO Additional Clinicians involved in Shantel Melendez's care: Dr Kimberly Nichole ENT, Dr. 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 10/05/2021 - MRI Brain: [facility] There is T2 and T2 flair hyperintense [...] microvascular ischemic change. Brainst (more content not included)...[facility]05-19-2025 History of Present illness Narrative* Curtis [...] PATIENT PRESENTS WITH AN IMPLANTABLE OR ATTACHED DRAG SEINER: No RADIOLOGY DEPARTMENT: CT; Exam(s) Completed: Chest and Neck PERIPHERAL IV DATA: Site assessment: Clean,Dry and Intact, Site disposition Discontinued SIGNED BY: RT Craig(R) November 03, 2024 8:32 AM documented in this encounterK[facility] NoteHNO ID: [id number] Author: CURTIS DA SILVA RN Service: ? [...] Melendez DATE: November 03, 2024 TIME: 8:13 [facility]05-19-2025 NoteHNO ID: [id number] Author: SALLY DOYLE RT(R) Service: ? Author [...] PATIENT PRESENTS WITH AN IMPLANTABLE OR ATTACHED DRAG SEINER: No RADIOLOGY DEPARTMENT: CT; Exam(s) Completed: Chest and Neck PERIPHERAL IV DATA: Site assessment: Clean,Dry and Intact, Site disposition Discontinued SIGNED BY: Sally Doyle, RT(R) November 03, 2024 8:32 [facility]05-19-2025 Telephone encounter Note* Telephone Encounter - Curtis Da Silva RN - 11/03/2024 7:49 AM EDT Please sign pended labs for 1 year f/u-will draw with CT today Thank You! Curtis Da Silva RN [facility]05-19-2025 Miscellaneous Notes* Telephone Encounter - Curtis Da Silva RN - 11/03/2024 7:49 AM EDT Please sign pended labs for 1 year f/u-will draw with CT today Thank You! Curtis Da Silva RN documented in this encounterK[facility]04-28-[facility] History of Present illness Narrative* Doretha Harris [...] assess the C7 screw. Doretha Harris MD Thermostat Mechanic of Neurosurgery [facility] [place] [facility] Neuroscience ICU Office: [phone] [1] Past Surgical History: Procedure Laterality Date [...] 60 capsule, Rfl: 0 documented in this [facility] Work Phone: 1(322) 953-358104-21-2025 Radiology [facility] [address] [place] [address] CT Scan Report Signed Patient: Shantel Melendez MR#: [id number] : 1960 Acct:[id number] Age/Sex: 63 / M ADM Date: 5 Loc: ER Room: Type: [facility] ER Attending Dr: Copies to: [...] Dorothy Eubanks M.D.10/06/2024 4:08 PM Dictation Location: [place] [address] Transcribed By: [facility] 10/06/24 1608 Dictated By: Dorothy Eubanks MD 10/06/24 1556 Signed By: 10/06/24 1605 [facility] Work Phone: 1(555) 493-750604-21-2025 Radiology Diagnostic [facility] [address] [place] [address] CT Scan Report Signed Patient: Shantel Melendez MR#: [id number] : 1960 Acct:[id number] Age/Sex: 63 / M ADM Date: 5 Loc: ER Room: Type: [facility] ER Attending Dr: Copies to: [...] Dorothy Eubanks M.D.10/06/2024 3:56 PM Dictation Location: [place] [address] Transcribed By: [facility] 10/06/24 1556 Dictated By: Dorothy Eubanks MD 10/06/24 1551 Signed By: 10/06/24 1556 [facility] Work Phone: 1(737) 944-413103-27-2025 Evaluation note* Diagnosis Onset Date Resolution Status Admit Date Current every day smoker acute September 11, 2024 8:53am PAD (peripheral artery disease) acut e September 11, 2024 8:53am Right leg claudication acute [facility] 2024 8:53am [facility] Work Phone: 1(204) 303-630303-27-2025 Evaluation note* Diagnosis Onset Date Resolution Status Admit Date Current every day smoker acute September 11, 2024 8:53am PAD (peripheral artery disease) acut e September 11, 2024 8:53am Right leg claudication acute [facility] 2024 8:53am Cardiac arrhythmia acute October 272024 9:37am Essential hypertension acute [facility] 2024 9:37am Hyperlipidemia acute October 27, 2024 9:37am 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, 2024 9:37am PAD (peripheral artery disease) sophy mone October 27, 2024 9:37am [facility] Work Phone: 1([phone]) 518-309903-27-2025 Evaluation note* Diagnosis Onset Date Resolution Status [...] 1:57pm Dysphagia acute November 17, 2024 1:57pm [facility] Work Phone: 1([phone]) 261-394303-27-2025 Evaluation note* Diagnosis Onset Date Resolution Status [...] infection) acute November 19, 2024 2 :26pm [facility] Work Phone: [phone]) 191-151703-27-2025 History of Present illness Narrative* Oziel Cadena [...] ezetimibe (ZETIA) 10 mg, Oral, Daily HYDROcodone-acetaminophen ([place]) 5-325 MG tablet take 1 tablet orally [...] Depression: Not at risk (06/30/2024) Received from [facility] PHQ-2 Patient Health Questionnaire-2 Score: 2 [...] Ana Luisa's absent. Ankle clonus absent. Coordination Kzrfij-ep-xjlf, rapid alternating movements and mlnb-gj-exqs normal bilaterally without dysmetria. Gait Normal casual, [...] the injections if needed. documented in this encounterCrittenton Behavioral [id number] History of Present illness Narrative* Oziel Cadena [...] ezetimibe (ZETIA) 10 mg, Oral, Daily HYDROcodone-acetaminophen ([place]) 5-325 MG tablet take 1 tablet orally [...] Past Medical History: Diagnosis Date Anxiety Depression ([facility]) HCVD (hypertensive cardiovascular disease) (CMS/HCC) Headache History [...] Depression: Not at risk (06/30/2024) Received from [facility] PHQ-2 Patient Health Questionnaire-2 Score: 2 [...] the injections if needed. documented in this encounterCrittenton Behavioral HealthIhetmrzjow20-34-4347 Evaluation note* Author Shilpi Lantigua [facility] Authored July 03, 2024 4 :44pm Sooner if needed, the ER if concerns,The above note written by Shilpi Lantigua LPN acting as human recorder, note dictated by Dr. Griselda Hastings [facility] Work Phone: 1([phone]) 747-337601-15-2025 History of Present illness Narrative* Oziel Cadena [...] ezetimibe (ZETIA) 10 mg, Oral, Daily HYDROcodone-acetaminophen ([place]) 5-325 MG tablet take 1 tablet orally [...] Depression: Not at risk (06/30/2024) Received from [facility] PHQ-2 Patient Health Questionnaire-2 Score: 2 [...] injections at that time. documented in this encounterCrittenton Behavioral [id number] History of Present illness Narrative* Doretha Harris [...] another set of XR. Doretha Harris MD Thermostat Mechanic of Neurosurgery [facility] [place] [facility] Neuroscience ICU Office: [phone] Scribe Attestation By signing my name below, I, Shira Sen, Scribe, attest that this documentation has been preparedunder the direction and in the presence of Doretha Harris MD. documented in this [facility] Work Phone: 1(500) 513-616412-04-2024 History of Present illness Narrative* Oziel Cadena [...] ezetimibe (ZETIA) 10 mg, Oral, Daily HYDROcodone-acetaminophen ([place]) 5-325 MG tablet take 1 tablet orally [...] Depression: Not at risk (04/09/2024) Received from [facility] PHQ-2 Patient Health Questionnaire-2 Score: 0 [...] his injections if needed. documented in this encounterCrittenton Behavioral [id number] History of Present illness Narrative* Solomon Narayanan PA-C - 04/30/2024 1:00 PM EST Images from the original note were not included. [facility] [place] Department of Neurological Surgery Post Operative Patient [...] CAD (coronary artery disease) Peripheral vascular disease ([facility]) Past Medical History: Diagnosis Date Anxiety Cataract s/p excision of left Cervical radiculopathy Chronic pain disorder Coronary artery disease Depression Dysphagia thin liquids Hypertension NPH (normal pressure hydrocephalus) (Multi) PAD (peripheral artery disease) ([facility]) s/p stent (05/2023) on ASA 81mg Peripheral vascular disease ([facility]) Pontine lesion watchful waiting Pulmonary nodule Skin [...] directly. Sincerely, RICH Hernandez PA-C Associate Physician Inspection Clerk, Neurosurgery Clinical Thermostat Mechanic [facility] [place] [address] [place] [address] documented in this [facility] Work Phone: [phone]) 995-815611-11-2024 Evaluation note* Diagnosis Onset Date Resolution Status [...] prostate cancer acute July 03, 2024 9:23am [facility] Work Phone: 1([phone]) 154-573210-24-2024 Hospital course Narrative* Aaron Gallo PA-C - [...] HYDROcodone-acetaminophen 5-325 mg tablet; Commonly known as: [place] tiZANidine 4 mg capsule; Commonly known as: Zanaflex Outpatient Follow-Up Future Appointments Date Time Provider Department Center 04/30/2024 1:00 PM Solomon Narayanan PA-C [id number] [place] 05/02/2024 9:00 AM [facility] PET MRI CMCSCCMRI [facility] [place] 05/02/2024 10:00 AM Helder Jack MD [id number] Academic 06/30/2024 9:00 AM Doretha Harris MD [id number] [place] Aaron Gallo PA-C documented in this [facility] Work Phone: [phone]) 765-108110-24-2024 History of Present illness Narrative* Nikole Lezama, PharmD - 04/10/2024 12:11 PM EDT Pharmacy Medication History Review Shantel Melendez is a 63 y.o. male admitted for Cervical radiculopathy. Pharmacy reviewed the patient's asske-so-mgccuirzm medications and allergies for accuracy. Medications ADDED: norco Medications CHANGED: Tizanidine nightly to as needed Medications REMOVED: Diamox Albuterol The list below reflects the updated [employer] SUPERVISOR list. Prior to Admission Medications Prescriptions Last Dose Informant HYDROcodone-acetaminophen ([place]) 5-325 mg tablet Self Sig: Take 1.5 [...] Report Patient interview (good historian-required some prompting) [facility], [facility] medical note 01/29 Additional Comments: none Nikole Lezama PharmD Transitions of Care Pharmacist 04/10/24 Secure Chat preferred If no response call [phone] or iSpye Rec * Tori Johnson OT - 04/10/2024 11:57 AM EDT Occupational Therapy Evaluation Patient Name: Shantel Melendez Today's Date: 04/10/2024 [facility] Start Time: 1019 Stop Time: [...] bars in shower Prior Function: Level of [place]: Independent with ADLs and functional transfers, Independent with homemaking with ambulation ADL Assistance: Independent Homemaking Assistance: Independent Ambulatory Assistance: Independent 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 Daily Activity Putting on and taking off [...] 11:57 AM TORI JOHNSON OT Rehab Office: [phone] * Tia Caceres PT - 04/10/2024 10:33 AM EDT Physical Therapy Physical Therapy Evaluation Patient Name: Shantel Melendez Department: [place] [address] Room: [address] [place] [address] Today's Date: 04/10/2024 Time Calculation Start Time: [...] Prior Function Per Pt/Caregiver Report Level of [place]: (independent ambulation in/outdoors no device, independent stairclimbing as needed, no falls) ADL Assistance: Independent Homemaking Assistance: Independent Ambulatory Assistance: Independent 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 Basic Mobility Turning from your back to [...] documented in the note. [facility] Work Phone: 1([phone]) 198-610810-23-2024 Plan of care note* Care Plan - [...] goals for the shift include pain management. [facility] Work Phone: [phone]) 308-839710-23-2024 Miscellaneous Notes* Care Plan - Elizabeth Esposito [...] (B) Operative Note Date: 04/09/2024 OR Location: [facility] OR Name: Shantel Melendez, : 1960, Age: 63 y.o., , Sex: male Diagnosis Pre-op Diagnosis * Cervical radiculopathy [M54.12] * Senile osteoporosis [M81.0] Post-op Diagnosis * Cervical radiculopathy [M54.12] * Senile osteoporosis [M81.0] Procedures Fusion Spine Anterior Cervical and Discectomy C5-6, C6-7 74789 - HI ARTHRD ANT INTERBODY DECOMPRESS CERVICAL BELW C2 HI ARTHRD ANT INTERBODY DECOMPRESS CERVICAL BELW C2 [38203] HI ARTHRD ANT INTERDY CERVCL BELW C2 EA ADDL NTRSPC [52012] HI ALLOGRAFT FOR SPINE SURGERY ONLY STRUCTURAL [07113] HI MICROSURG TQS REQ USE OPERATING MICROSCOPE [99108] Surgeons * Doretha Harris - Primary Resident/Fellow/Other Inspection Clerk: Surgeons and Role: * Chicho Bryan MD - Resident - Assisting * Rojas Edwards MD - Resident - Assisting Procedure Summary Anesthesia: General ASA: III Anesthesia Staff: Anesthesiologist: Fred Cheek MD C-AA: Shelly Mullins Capp, [facility]; NAVEEN Reddy IVONE: Jamee Woodall Estimated Blood [...] 85 mL Specimen: No specimens collected Staff: Outsole Cementer Machine: Derrell Scrub Person: Beverly Scrub Person: Shaina Drains and/or Catheters: Closed/Suction Drain 1 Neck Bulb 10 Fr. (Active) Urethral Catheter Double-lumen;Non-latex 16 Fr. (Active) Tourniquet Times: Implants: Implants Type Name Action Serial No. Spinal Hardware SCREW, DISTRACTION, 14 MM - [id number] Used, Not Implanted Spinal Hardware ALLOGRAFT, TRIAD LORDOTIC 6 X 11 X 14 - [id number] - [id number] Implanted [id number] Spinal Hardware ALLOGRAFT, TRIAD LORDOTIC 6 X 11 X 14 - [id number] - [id number] Implanted [id number] Spinal Hardware PLATE, ACP, 1.6V, 2 LEVEL, 34MM - [id number] Implanted Spinal Hardware SCREW, ACP, SELF DRILL, 3.5 X 17MM, VARIABLE - [id number] Implanted 3.5 X 19MM SCREW Implanted Findings: [...] then placed our self-retaining retractor in and [place] pins in and placed the disc space [...] 04/09/2024 4:50 PM EDT documented in [facility]White [facility] Work Phone: [phone] 301-141110-23-2024 Nurse Note* Shantelle Pacheco RN - 04/09/2024 7:03 PM EDT Patient transferred from PACU to [id number] via stretcher in stable condition. Patient oriented to room, bed, and call light. Skin assessment witnessed by Brianda Dowling RN. Will continue to monitor. [facility] Nurse Note* Shantelle Pacheco RN - 04/09/2024 7:03 PM EDT Patient transferred from PACU to [id number] via stretcher in stable condition. Patient oriented to room, bed, and call light. Skin assessment witnessed by Brianda Dowling RN. Will continue to monitor. documented in this encounterUnHocking [facility] Work Phone: [phone]) 501-151410-23-2024 Hospital Note* Hospital Course - Aaron Gallo PA-C - 04/09/2024 5:04 PM EDT 63M h/p HTN, CAD, PAD s/p stent on ASA81, pontine glioma, tongue cancer p/w LUE radiculopathy, 04/09 s/p C5-7 ACDF 04/10 PT/OT DC recs no needs, post operative xray shows good position, Drain removed [facility] Work Phone: 1(737) 277-369010-23-2024 Note* Op Note - Chicho Bryan MD - 04/09/2024 2:30 PM EDT Fusion Spine Anterior Cervical and Discectomy C5-6, C6-7 (B) Operative Note Date: 04/09/2024 OR Location: [facility] OR Name: Shantel Melendez, : 1960, Age: 63 y.o., , Sex: male Diagnosis Pre-op Diagnosis * Cervical radiculopathy [M54.12] * Senile osteoporosis [M81.0] Post-op Diagnosis * Cervical radiculopathy [M54.12] * Senile osteoporosis [M81.0] Procedures Fusion Spine Anterior Cervical and Discectomy C5-6, C6-7 50492 - HI ARTHRD ANT INTERBODY DECOMPRESS CERVICAL BELW C2 HI ARTHRD ANT INTERBODY DECOMPRESS CERVICAL BELW C2 [31045] HI ARTHRD ANT INTERDY CERVCL BELW C2 EA ADDL NTRSPC [75173] HI ALLOGRAFT FOR SPINE SURGERY ONLY STRUCTURAL [] HI MICROSURG TQS REQ USE OPERATING MICROSCOPE [41270] Surgeons * Doretha Harris - Primary Resident/Fellow/Other Inspection Clerk: Surgeons and Role: * Chicho Bryan MD [...] 85 mL Specimen: No specimens collected Staff: Outsole Cementer Machine: Derrell Scrub Person: Beverly Scrub Person: Shaina Drains and/or Catheters: Closed/Suction Drain 1 Neck Bulb 10 Fr. (Active) Urethral Catheter Double-lumen;Non-latex 16 Fr. (Active) Tourniquet Times: Implants: Implants Type Name Action Serial No. Spinal Hardware SCREW, DISTRACTION, 14 MM - [id number] Used, Not Implanted Spinal Hardware ALLOGRAFT, TRIAD LORDOTIC 6 X 11 X 14 - [id number] - [id number] Implanted [id number] Spinal Hardware ALLOGRAFT, TRIAD LORDOTIC 6 X 11 X 14 - [id number] - [id number] Implanted [id number] Spinal Hardware PLATE, ACP, 1.6V, 2 LEVEL, 34MM - [id number] Implanted Spinal Hardware SCREW, ACP, SELF DRILL, 3.5 X 17MM, VARIABLE - [id number] Implanted 3.5 X 19MM SCREW Implanted Findings: [...] then placed our self-retaining retractor in and [place] pins in and placed the disc space [...] Harris MD at 04/09/2024 4:50 PM EDT [facility] Work Phone: 1(162) 723-460710-23-2024 Attending History and physical note* Rojas Edwards MD - 04/09/2024 12:22 PM EDT H&P reviewed. The patient was examined and there are no changes to the H&P. Cosigned by Doretha Harris MD at 04/09/2024 12:53 PM EDT Source Note - Rick BAILEY Mckinney-IP PARALEGAL - 03/26/2024 10:30 AM EDT Images from [...] pressure hydrocephalus) (Multi) PAD (peripheral artery disease) ([facility]) s/p stent (05/2023) on ASA 81mg Peripheral vascular disease ([facility]) Pontine lesion watchful waiting Pulmonary nodule Skin [...] Flowsheet Row Pre-Admission Testing from 02/11/2024 in [facility] Questionnaire Series Submission from 02/06/2024 in [facility] with Generic Provider Laura Can you [...] or washing dishes? 2.7 filed at 02/11/2024 24354.7 filed at 02/06/2024 0032 Can you do [...] Flowsheet Row Pre-Admission Testing from 02/11/2024 in [facility] DVT Score 11 filed at 02/11/2024 1506 BMI 30 or less filed at 02/11/2024 1506 RETIRED: Current Status Major surgery planned, lasting over 3 hours filed at 02/11/2024 1506 RETIRED: History Prior major surgery, Previous malignancy filed at 02/11/2024 1506 RETIRED: Age 60-75 years filed at 02/11/2024 1506 Modified Frailty Index Flowsheet Row Pre-Admission Testing from 02/11/2024 in [facility] Non-independent functional status (problems with dressing, bathing, personal grooming, or cooking) 0 filed at 02/11/2024 1505 History of diabetes mellitus 0 filed at 02/11/2024 1505 History of COPD 0 filed at 02/11/2024 1505 History of CHF No filed at 02/11/2024 1505 History of HI 0 filed at 02/11/2024 1505 History of [...] Flowsheet Row Pre-Admission Testing from 02/11/2024 in [facility] High-Risk Surgery (Intraperitoneal, Intrathoracic,Suprainguinal vascular) 0 filed at 02/11/2024 1505 History of ischemic heart disease (History of HI, History of positive exercuse test, Current chest [...] Flowsheet Row Pre-Admission Testing from 02/11/2024 in [facility] Smoking status 0 filed at 02/11/2024 1506 [...] Flowsheet Row Pre-Admission Testing from 03/26/2024 in [facility] Pre-Admission Testing from 02/11/2024 in [facility] Do you snore loudly? 0 filed at [...] Yellow, Dark-Yellow Appearance, Urine Clear Clear Specific [place], Urine 1.007 1.005 - 1.035 pH, Urine [...] Rate 63 BPM Atrial Rate 63 BPM HI Interval 268 ms QRS Duration 74 ms QT Interval 406 ms QTC Calculation(Bazett) 415 ms P [place] 58 degrees R [place] -3 degrees T [place] 18 degrees QRS Count 10 beats Q [...] given to patient. Neurosurgery: Doretha Harris MD [facility] 01/03/24 seen for cervical radiculopathy. Neurosurgery: Jose Cruz Khan MD [facility] 11/05/23- [facility] seen for cervical stenosis of spine. Oncology: Helder Jack MD [facility] 12/13/23 seen for incidental pontine lesion- appears to be low-grade. HEENT/Airway The patient has history of selective right neck dissection (II-V) and bilateral base of tongue/linguial tonsillar excision on 01/30/[address] 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 Currently with limited neck extension. No documented or reported history of airway difficulty. HemOnc: Racquel Cole MD [facility] 11/02/23-[facility] seen for head and neck cancer. [...] Cardiology Evaluation Cardiology: Lilliam Cason MD - Formerly [facility], [facility]–1983 (see media tab for last office note) [...] understanding ofpreoperative instructions. After Visit Summary given. [facility] Work Phone: 1(722) 613-320310-23-2024 History and physical note* Rojas Edwards MD [...] thin liquids Hypertension NPH (normal pressure hydrocephalus) ([facility]) PAD (peripheral artery disease) ([facility]) s/p stent (05/2023) on ASA 81mg Peripheral vascular disease ([facility]) Pontine lesion watchful waiting Pulmonary nodule Skin [...] as directed daily preoperatively 02/11/24 Rick Mckinney APRN-IP PARALEGAL chlorhexidine (Peridex) 0.12 % solution Swish and spit with 15ml of solution the night before and morning of surgery. Do not swallow. 02/11/24 Rick Mckinney, HOT REPAIRMAN-IP PARALEGAL citalopram (CeleXA) 20 mg tablet Take 0.5 [...] Flowsheet Row Pre-Admission Testing from 02/11/2024 in [facility] Questionnaire Series Submission from 02/06/2024 in [facility] [...] or washing dishes? 2.7 filed at 02/11/2024 47782.7 filed at 02/06/2024 003 Can you do [...] Flowsheet Row Pre-Admission Testing from 02/11/2024 in [facility] DVT Score 11 filed at 02/11/2024 1506 BMI 30 or less filed at 02/11/2024 1506 RETIRED: Current Status Major surgery planned, lasting over 3 hours filed at 02/11/2024 1506 RETIRED: History Prior major surgery, Previous malignancy filed at 02/11/2024 1506 RETIRED: Age 60-75 years filed at 02/11/2024 1506 Modified Frailty Index Flowsheet Row Pre-Admission Testing from 02/11/2024 in [facility] Non-independent functional status (problems with dressing, bathing, personal grooming, or cooking) 0 filed at 02/11/2024 1505 History of diabetes mellitus 0 filed at 02/11/2024 1505 History of COPD 0 filed at 02/11/2024 1505 History of CHF No filed at 02/11/2024 1505 History of HI 0 filed at 02/11/2024 1505 History of [...] Flowsheet Row Pre-Admission Testing from 02/11/2024 in [facility] High-Risk Surgery (Intraperitoneal, Intrathoracic,Suprainguinal vascular) 0 filed at 02/11/2024 1505 History of ischemic heart disease (History of HI, History of positive exercuse test, Current chest [...] Flowsheet Row Pre-Admission Testing from 02/11/2024 in [facility] Smoking status 0 filed at 02/11/2024 1506 [...] Flowsheet Row Pre-Admission Testing from 03/26/2024 in [facility] Pre-Admission Testing from 02/11/2024 in [facility] Do you snore loudly? 0 filed at [...] Yellow, Dark-Yellow Appearance, Urine Clear Clear Specific [place], Urine 1.007 1.005 - 1.035 pH, Urine [...] Rate 63 BPM Atrial Rate 63 BPM HI Interval 268 ms QRS Duration 74 ms QT Interval 406 ms QTC Calculation(Bazett) 415 ms P [place] 58 degrees R [place] -3 degrees T [place] 18 degrees QRS Count 10 beats Q [...] given to patient. Neurosurgery: Doretha Harris MD [facility] 01/03/24 seen for cervical radiculopathy. Neurosurgery: Jose Cruz Khan MD [facility] 11/05/23- [facility] seen for cervical stenosis of spine. Oncology: Helder Jack MD [facility] 12/13/23 seen for incidental pontine lesion- appears to be low-grade. HEENT/Airway The patient has history of selective right neck dissection (II-V) and bilateral base of tongue/linguial tonsillar excision on 01/30/[address] 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 Currently with limited neck extension. No documented or reported history of airway difficulty. HemOnc: Racquel Cole MD [facility] 11/02/23-[facility] seen for head and neck cancer. Cardiovascular [...] Cardiology Evaluation Cardiology: Lilliam Cason MD - Former[facility], [facility]–1983 (see media tab for last office note) [...] After Visit Summary given. documented in this encounterWhite Hospital Work Phone: [phone]) 722-143110-15-2024 Evaluation note* Author [facility] Authored April 01, 2024 1 0:01am The above note written by Leon Humphreys LPN, acting as human recorder, note dictated by Dr. Griselda Hastings. [facility] Work Phone: 1(357) 106-855108-15-2024 Evaluation note* Author [facility] Authored January 31, 2024 10 :40am The above note written by Leon Humphreys LPN, acting as human recorder, note dictated by Dr. Griselda Hastings. Author [facility] Authored April 01, 2024 1 1:01am The above note written by Leon Humphreys LPN, acting as human recorder, note dictated by Dr. Griselda Hastings. [facility] Work Phone: 1(478) 373-816207-18-2024 History of Present illness Narrative* Doretha Harris [...] bone stimulator after surgery. Doretha Harris MD Thermostat Mechanic of Neurosurgery [facility] Spine [place] [facility] Neuroscience ICU Office: [phone] Scribe Attestation By signing my name below, IParisa , Erlinda attest that this documentation has been prepared under the direction and in the presence of MD Shirley. documented in this [facility] Work Phone: 1(935) 305-276206-27-2024 History of Present illness Narrative* Helder Jack MD - 12/13/2023 10:00 AM EDT Patient ID: Shantel Melendez is a 63 y.o. male. Referring Physician: Shimon Heaton, BILL[place] [id number] [address] [place] [id number] Primary Care Provider: Griselda Hastings DO Subjective History of Present Ilness: 62 y.o. presents in neurosurgical consultation from [facility] for cervical stenosis.C/o neck pain and LUE pain, numbness and weakness down to hand for 2 years. SawNeurosurgeon at and has had 2 spinal taps with some improvement. Went to [facility] to be assessed for hydrocephal;us and was told he does not have hydrocephalus. He saw Dr. Lara at the [facility]. Also pain behind left eye. [...] issues. 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 INTERVAL HISTORY (12/13/2023): Since the last visit, he continues to have severe neck pain, which isslowly getting worse, along with some muffled hearing on the left side. He tried going back to parttime work, but the activity made the neck pain much more severe. He saw a Neurosurgeon at [facility] about the cervical stenosis, but he was unwilling to consider surgery for the neck due to the pontine lesion. He has now been to see a Neurosurgery PA (Solomon Narayanan) at [facility] about the neck, who thought surgical decompression [...] Nate Benavidez 12/13/2023 9:38 AM Dictation workstation: [id number] Impression 1. Abnormal increased T2 signal in [...] will undergo a new MRI brain at [facility]. -I spent > 40 minutes in face to face consultation to review and discuss the above; 50% of whichor more was dedicated to counseling. Helder Jack MD documented in this [facility] Work Phone: 1(985) 465-492806-27-2024 Instructions* Patient Instructions* Alondra Escamilla RN - 12/13/2023 10:00 AM EDT Your next appointment will be in 5 months. Please schedule your MRI prior to this visit. Please contact [phone] option 5 then option 2 with any questions or concerns. For any scheduling concerns please call [phone] option 1 documented in this encounterWhite Hospital Work Phone: 1(415) 895-609306-26-2024 History of Present illness Narrative* Solomon Narayanan PA-C - 12/12/2023 1:00 PM EDT Images from the original note were not included. [facility] Department of Neurological Surgery New Patient Visit [...] as well as had multiple interventions via [facility] including trial ablation which did provide [...] Motor Strength: 4/5 left biceps, triceps, wrist, division director Muscle Bulk: Decreased muscle bulk left bicep [...] as well as had multiple interventions via [facility] center including trial ablation which did [...] directly. Sincerely, RICH Hernandez PA-C Associate Physician Inspection Clerk, Neurosurgery Clinical Thermostat Mechanic [facility] [place] [address] [place] [address] documented in this encounterWhite Hospital Work Phone: 1(137) 488-793205-17-2024 Instructions* Patient Instructions* Racquel Cole MD - 11/02/2023 10:13 AM EDT Scans and labs in 1 year RTC 1 week after documented in this encounterKet[facility] History of Present illness Narrative* Racquel Cole MD - 11/02/2023 9:45 AM EDT Images from the original note were not included. NAME: MelendezShantel [facility] NO[facility] [id number] DATE OF SERVICE: November 02, 2023 ([facility]) Some elements in this clinic note that are critical to medical decision making have been carefully reviewed and included from a prior clinic note dated: November 03, 2022 ([facility]). Referring Provider: Griselda Hastings, DO Additional Clinicians involved in Shantel Melendez's care: Dr Kimberly Nichole ENT, Dr. Ibarra [place] surgery [facility], [facility] DIAGNOSIS: Head and neck cancer ASSESSMENT: 62 [...] 1.8 mm of invasive disease (Stage I, [id number], HPV+ oropharyngeal SCC).resected T1 N1 base of [...] adenopathy is identified. 10/05/2021 - MRI Brain: [facility] There is T2 and T2 flair hyperintense [...] respiratory bronchiolitis. 01/30/2019 - Neck dissection at [facility] Base of tongue did note [...] 2020: Doing well, still smokes, works at [employer]. Reviewed scans and there is no evidence [...] which included preparing to see the patient, povv-ql-llim patient care, completing clinical documentation, performing a medically appropriate examination, counseling and educating the patient/family/caregiver, ordering medications, tests, or p rocedures, independently interpreting results (not separately reported), communicating results to the patient/family/caregiver, and care coordination (not separately reported). Racquel Cole MD, CPE Hematology and Oncology Services Provided at: [place], [place] Scribe Attestation: This note was scribed [...] under my direction. CC: Griselda Hastings, DO [address] [place] [phone] [address] NEW[address] ENT[address] Dr[address] Nichole ENT Dr. Ibarra [place] surgery [facility]. documented in this encounterK[facility] Evaluation note* Author Shilpi Lantigua [facility] Authored October 29, 2023 10:32 am Sooner if needed, the ER if concerns,The above note written by Shilpi Lantigua LPN acting as human recorder, note dictated by Dr. Griselda Hastings [facility] Work Phone: [phone]) 168-278105-10-2024 History of Present illness Narrative* Curtis Da [...] PATIENT PRESENTS WITH AN IMPLANTABLE OR ATTACHED DRAG SEINER: No RADIOLOGY DEPARTMENT: CT; Exam(s) Completed: Chest and Neck PERIPHERAL IV DATA: Site assessment: Clean,Dry and Intact, Site disposition Discontinued SIGNED BY: RT Craig(R) October 26, 2023 10:07 AM documented in this encounterKettering [facility]04-19-2024 History of Present illness Narrative* Helder Jack [...] hydrocephalus. He saw Dr. Lara at the [facility]. Also pain behind left eye. [...] issues. 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 The ROS is as per documentation in the [facility]. Objective BSA: 1.93 meters squared Ht [...] counseling. Helder Jack MD documented in this [facility] Work Phone: 1(679) 935-620804-19-2024 Instructions* Patient Instructions* Adriana Thomas RN - 10/05/2023 9:[address] Jack will present your case at [facility] next Sunday. Someone from the office will call you that day or about your plan. Please call us with any questions or concerns at [phone] opt. 5, opt. 2 For scheduling concerns please call [phone] option 1 documented in this encounterWhite Hospital Work Phone: [phone]) [phone] Evaluation note* Author Curtis Olmosolson [facility] Authored August 15, 2023 5:19pm The above note written by Serafin Flood acting as human recorder, note dictated by Dr. Griselda Hastings . [facility] Work Phone: 1(846) 365-454702-28-2024 Evaluation note* Author [facility] Authored August 15, 2023 5:19pm The above note written by Serafin Flood acting as human recorder, note dictated by Dr. Griselda Hastings . Author Shilpi Lantigua [facility] Authored October 29, 2023 10:32 am Sooner if needed, the ER if concerns,The above note written by Shilpi Lantigua LPN acting as human recorder, note dictated by Dr. Griselda Hastings [facility] Work Phone: [phone]) 680-623401-15-2024 Evaluation note* Encounter Date Diagnosis Assessment Notes Treatment Notes Treatment Clinical Notes Jun, Acute cough (ICD-10 - R05.1) In [place] covid, flu, strep and rsv test was [...] continue to follow with them as scheduled. [facility] Other 12-14-2023 Evaluation note* Encounter Date Diagnosis Assessment Notes Treatment Notes Treatment Clinical Notes May, PAD (peripheral artery disease) (ICD-10 - I73.9) Patient recently had angioplasty for occlusion of right iliac artery that was discovered by gear machine operator general. He has been doing well since the [...] work before I provide him that consent. [facility]PO Other 12-13-2023 Evaluation note* Encounter Date Diagnosis [...] I will see him in 3 months. [facility] Other 11-28-2023 Evaluation note* Encounter Date Diagnosis [...] 3 months Apr, Lightheadedness (ICD-10 - R42) [facility] Other 11-20-2023 [facility]11-16-2023 Evaluation note* Encounter Date Diagnosis Assessment Notes [...] questions were addressed and consent was obtained. EXPO Other 11-14-2023 Evaluation note* Encounter Date Diagnosis [...] M54.2) The patient is now following with [facility]. He states he has an upcoming cervical epidural scheduled. 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 Apr, PAD (peripheral artery disease) (ICD-10 - I73.9) Arterial studies ordered by gear machine operator general indicating peripheral artery disease. The patient does report lower extremity pain and heaviness and I recommend it would be beneficial to consult with a vascular specialist. The patient is in agreement, therefore a referral was initiated. A CTA has been ordered by neurologist , appointment pending [facility] scheduling. Apr, Hyperlipidemia (ICD-10 - [...] vocies understanding. We will continue to monitor. [facility] Other 10-26-2023 Evaluation note* Encounter Date Diagnosis Assessment Notes Treatment Notes Treatment Clinical Notes Mar, Claudication (ICD-10 - I73.9) [facility] Other 10-25-2023 Evaluation note* Encounter Date Diagnosis [...] 4 weeks Mar, Lightheadedness (ICD-10 - R42) [facility] Other 10-24-2023 Evaluation note* Encounter Date Diagnosis Assessment Notes Treatment Notes Treatment Clinical Notes Mar, Elevated blood pressure reading (ICD-10 - R03.0) [facility] Other 09-28-2023 Evaluation note* Encounter Date Diagnosis [...] infection. Feb, Burning sensation (ICD-10 - R20.8) [facility] Other 09-21-2023 Evaluation note* Encounter Date Diagnosis [...] index finger. We will continue to monitor. EXPO Other 07-13-2023 Hospital Discharge instructions Diet Plan/Instructions [...] * Discharge Physician: : Lima Joseph MD ([id number]) - Anesthesiology, Pain Management * Discharge Physician Phone: : [phone] [id number] [id number] Special Plan/Instructions for Discharge from 12/27/2022 10:26 AM: * Special Instructions : Spoke to patient Wound Care Instruction for Discharge from 12/27/2022 10:26 AM: * Special Instructions : Spoke to patient [employer] [facility] 06-20-2023 Evaluation note* Encounter Date Diagnosis Assessment [...] sent to the office to be completed. EXPO Other 05-12-2023 History of Present illness Narrative* [...] with PATIENT DISCHARGED TO: Ambulatory patient, left [place] department area. A Diagnostic radioactive procedure has taken place, with no further precautions necessary other than routine body substance precautions. More information regarding radiation safety can be found usingthis link: [email or web address] SIGNATURE: RT Craig(Neisah) PATIENT NAME: Shantel Melendez DATE: October 27, 2022 TIME: 11:55 AM PAGER/CONTACT #: documented in this encounterKet[facility]04-07-2023 History of Present illness Narrative* RT Julio(R) [...] 2022 TIME: 2:39 PM documented in this encounterKettering Health [facility]04-05-2023 Miscellaneous Notes* Telephone Encounter - [...] return call ? Yes documented in this encounterKettering Health [facility]03-29-2023 Instructions* Patient Instructions* Kelly Perez [...] perform on same dariusz. documented in this encounterKettering Health [facility]03-29-2023 Nurse Note* Antonia Tripathi MA - 09/13/2022 10:55 AM EDT Additional intake questions: Has the patient had fever, nausea, vomiting, diarrhea, constipation, fatigue for > 1 week? Yes, diarrhea ( 3 times in last 24 hours), fatigue, and Provider Notified Does the patient have a decreased appetite? No Does patient want to see a Driving Teacher? No (yes to any of above refer [...] By: Antonia Tripathi MA documented in this encounterKettering Health [facility]03-29-2023 History of Present illness Narrative* Kelly Perez PA-C - 09/13/2022 10:44 AM EDT This note was created using EyeLockriter. Subjective Shantel Melendez is a 61 year [...] or pronator drift. Coordination: Romberg sign negative. Pusnus-Uiph-Xqmwpe Test normal. Gait: Gait abnormal. Comments: Slightly [...] which included preparing to see the patient, qzoj-[id number]-vfjd patient care, completing clinical documentation, obtaining and/or reviewing separately obtained history, performing a medically appropriate examination, counseling and educating the pat ient/family/caregiver, ordering medications, tests, or procedures, communicating with other HCPs (not separately reported), independently interpreting results (not separately reported), communicatingresults to the patient/family/caregiver, and care coordination (not separately reported). documented in this encounterKettering Health [facility]03-16-2023 Evaluation note* Encounter Date Diagnosis [...] her mid twenties. He will see the WALL WASHER at Dr. Cadena's office today, and will see the [facility] 09/13/22. I do feel pt needs his FMLA extended until 12/16/22. I encouraged him to continue to follow with these doctors, and we will continue to monitor. EXPO Other 02-14-2023 Evaluation note* Encounter Date Diagnosis [...] pain medication and fever reducers as needed. EXPO Other 01-11-2023 Evaluation note* Encounter Date Diagnosis Assessment Notes Treatment Notes Treatment Clinical Notes Jun, Other complicated headache syndrome (ICD-10 - G44.59) EXPO Other 12-09-2022 Evaluation note* Encounter Date Diagnosis [...] check on him again in 1 month. EXPO Other 10-30-2022 Hospital Discharge instructions Additional Instructions [...] week to see how you are doing. [facility] Work Phone: 1(208) 832-894410-10-2022 Miscellaneous Notes* Telephone Encounter - Racquel Cole MD - 03/27/2022 3:54 PM EDT Good with me * Telephone Encounter - Asya Reynolds RN - 03/27/2022 2:17 PM EDT Informed patient of your recommendations. He states that he is seeing neurology in [place] and they do not feel he needs [...] the weekend about an appointment with a [facility] neurosurgeon. He has not seen you since 10/2021. He states st that time you did not see the need for a neurosurgeon as his tumor wastoo small. Now he all of the sudden has an appointment with this [facility] neurosurgeon and is confused. Can you review and advise as to this appointment with the neurosurgeon. Asya Reynolds RN documented in this encounterK[facility]09[facility] Miscellaneous Notes* Telephone Encounter - Pamela Nascimento APRN.LUCIO - 03/16/2022 2:51 PM EDT Time Frame: Next available Provider: Intra-axial neurosurgeon & Neuro-Oncology (same day) Referring: Racquel Cole MD Please instruct patient to hand carry/ upload images prior to appt Dx: Low grade glioma Patient: Shantel Melendez Address: Shantel Melendez [id number] [place] [address] Per Triage: Shantel Melendez is a 61 year old male that requests evaluation of previously diagnosed possible low grade glioma. Patient expectations: Second opinion Tumor Specifics: Location: brain Previous Evaluations: MRI w/wo contrast (10/05/21): 10/05/2021 MRI Brain [facility] Impression: 1. 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 Yes documented in this encounterKettering [facility]09-29-2022 Evaluation note* Encounter Date Diagnosis [...] see if this gives him some relief EXPO Other 08-15-2022 Evaluation note* Encounter Date Diagnosis [...] - G93.9) Patient had another MRI at [facility]. We are awaiting for the [...] again next week. We are awaiting for [facility] to fax over the consult and MRI results. Jan, Neck pain (ICD-10 - M54.2) The patients neck pain is persistant but the headache has improved with a medication change. Discussed with Dr. Cadena his persistent neck pain, may need MRI of his neck and/or EMG. Due to his multiple other medications did hold off on any pain medications. EXPO Other 07-11-2022 Evaluation note* Encounter Date Diagnosis [...] blood pressure was elevated upon check in. EXPO Other 06-20-2022 Evaluation note* Encounter Date Diagnosis [...] rule out other causes of his symptoms. EXPO Other 05-24-2022 Evaluation note* Encounter Date Diagnosis [...] will complete the necessary medical disability forms. EXPO Other 05-17-2022 Evaluation note* Encounter Date Diagnosis Assessment Notes Treatment Notes Treatment Clinical Notes October, Glioma of brain (ICD-10 - C71.9) Patient has consulted neurosurgeon, Dr. Narayan, and he is now referring on to Dr. Jonny Vigil at the [facility] for [facility] opinion. Reviewed consult [...] this medication. Will continue to follow up EXPO Other 05-12-2022 History of Present illness Narrative* Racquel Cole MD - 10/27/2021 5:05 PM EDT Images from the original note were not included. NAME: Shantel Melendez CLINIC NO.: [id number] DATE OF SERVICE: October 27, 2021 Some elements in this clinic note that are critical to medical decision making have been carefully reviewed and included from a prior clinic note dated: October 13, 2021 Referring Provider: Griselda Hastings, DO Additional Clinicians involved in Shantel Melendez's care: Dr Kimberly Nichole ENT, Dr. 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 Dr. Nichole ENT Dr. Ibarra [place] surgery [facility]. documented in this encounterKettering [facility]05-09-2022 Evaluation note* Encounter Date Diagnosis [...] him on to see Dr. Jonny Vigil. [facility] [place] [employer] Other 05-04-2022 Miscellaneous Notes* Telephone Encounter - Haily Jovel [facility] - 10/19/2021 12:56 PM EDT Called [facility] Neuro Office spoke with Leslee. She states they have received patient records/referral and have patient scheduled to see Dr Narayan on 10/24. Haily Jovel [facility] * Telephone Encounter - Asya Gramajo [facility] - 10/18/2021 10:34 AM EDT Records faxed. * Telephone Encounter - Haily Jovel [facility] - 10/13/2021 12:24 PM EDT Noelle: Information ready for you. Haily Jovel Pss * Telephone Encounter - Antonia Mcguire - 10/13/2021 10:33 AM EDT Referral to neurosurgery - Dr. Narayan or Talya Drake/Layo: Can you please refer patient and follow up? Thanks! Antonia Mcguire documented in this encounterKettering [facility]04-28-2022 History of Present illness Narrative* Racquel Cole MD - 10/13/2021 10:19 AM EDT Images from the original note were not included. NAME: Shantel Melendez [facility] NO.: [id number] DATE OF SERVICE: October 13, 2021 Some elements in this clinic note that are critical to medical decision making have been carefully reviewed and included from a prior clinic note dated:October 14, 2020 Referring Provider: Griselda Hastings, DO Additional Clinicians involved in Shantel Melendez's care: Dr Kimberly Nichole ENT, Dr. 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 Reviewed scans and there is no evidence [...] adenopathy is identified. 4. 10/05/2021 MRI Brain [facility] Impression: 1. There is T2 [...] and neck (HCC) Racquel Cole MD, CPE [place], [place] CC: Griselda Hastings, DO [address] [address] [address] Kimberly ELIZABETHS ENT. Dr. Nichole ENT Dr. Ibarra [place] [facility]. documented in this encounterKet[facility]04-21-2022 Miscellaneous Notes* Telephone Encounter - Racquel Cole [...] steps. Asya Kumar RN documented in this encounterKettering [facility]04-21-2022 History of Present illness Narrative* Marilyn [...] 06, 2021 8:07 AM documented [place] encounterMad[place] [address]-04-2022 Evaluation note* Encounter Date Diagnosis Assessment Notes [...] to continue with monitoring diet and exercise. EXPO Other 03-28-2022 Evaluation note* Encounter Date Diagnosis Assessment Notes Treatment Notes Treatment Clinical Notes Aug, Anxiety and depression (ICD-10 - F41.8) EXPO Other 01-13-2022 Evaluation note* Encounter Date Diagnosis Assessment Notes Treatment Notes Treatment Clinical Notes Jun, Sinusitis (ICD-10 - J32.9) I did prescribe the above medications and work note provided. EXPO Other 01-12-2022 Evaluation note* Encounter Date Diagnosis Assessment Notes Treatment Notes Treatment Clinical Notes Jun, Sinus pressure (ICD-10 - J34.89) Patient advised of negative results. Encouraged him to call if symtpoms persist or worsen, he verbalized understanding. EXPO Other 11-02-2021 Evaluation note* Encounter Date Diagnosis Assessment Notes Treatment Notes Treatment Clinical Notes Apr, Sinus congestion (ICD-10 - R09.81) EXPO Other 10-28-2021 Evaluation note* Encounter Date Diagnosis [...] Encouraged patient to continue with their efforts. EXPO Other 12-01-2016 History general Narrative - Reported* [...] surgery 02/04 19 Hospitalization History see above EXPO Other 12-01-2016 History general Narrative - Reported* [...] 02/04 19 Surgical History Spinal tap at [facility] 11/07/2021 Hospitalization History see above EXPO Other 12-01-2016 History general Narrative - Reported* [...] 02/04 19 Surgical History Spinal tap at [facility] 11/07/2021 Hospitalization History see above EXPO Other 12-01-2016 History general Narrative - Reported* [...] dissection 01/2019 Surgical History Spinal tap at [facility] 11/07/2021 Hospitalization History see above EXPO Other 12-01-2016 History general Narrative - Reported* [...] dissection 01/2019 Surgical History Spinal tap at [facility] 11/07/2021 Surgical History LP at [facility] 08/2022 Hospitalization History see above EXPO Other 12-01-2016 History general Narrative - Reported* [...] dissection 01/2019 Surgical History Spinal tap at [facility] 11/07/2021 Surgical History LP at [facility] 08/2022 Hospitalization History see above EXPO Other 12-01-2016 History general Narrative - Reported* [...] dissection 01/2019 Surgical History Spinal tap at [facility] 11/07/2021 Surgical History LP at [facility] 08/2022 Surgical History angioplasty right iliac artery 04/2023 Hospitalization History see above EXPO Other [id number] History of Present illness Narrative* The patient [...] He saw Dr. Ba a neurologist in [facility]. * He describes his vision as seeing 1-1/2 . He describes this does not seem quite to but finding a time lab between moving his eyes and having the visual change. [facility] Work Phone: chief complaint+Reason for visit Narrative* Chief Complaint 2 month 2 month f/u Reason for Visit Cervical spondylosis History of COVID-19 Nicotine dependence with current use SCC (squamous cell carcinoma) Nicotine dependence with current use Osteoarthritis cervical spine [facility] Work Phone: Clinical Notes [facility] Evaluation + Plan note [facility] Evaluation noteNo Assessments Information Available [facility]* Diagnosis Glioma of brain (HCC)- Primary Malignant neoplasm of brain, unspecified site Lung nodules Other nonspecific abnormal finding of lung field 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) Malignant neoplasm of head, face, and neck documented in this encounter [facility]* Diagnosis 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 Malignant neoplasm of head, face, and neck Lung nodules Other nonspecific abnormal finding of lung field Malignant neoplasm of head, face and neck (HCC) Malignant neoplasm of head, face, and neck documented in this encounter [facility] CenterEvaludel[facility] noteNo InformationNort Meshfire Other Evaluation noteNo assessment information available [facility] Work Phone: Evaluation note* Diagnosis Onset Date Resolution Status Migraine acute [facility] Work Phone: Evaluation note* Diagnosis NPH (normal pressure hydrocephalus) (HCC)- Primary Idiopathic normal pressure hydrocephalus (INPH) documented [facility] this encounter [facility]* Diagnosis 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HCC)- Primary NPH (normal pressure hydrocephalus) (HCC) Idiopathic normal pressure hydrocephalus (INPH) documented in this encounter [facility] note* Diagnosis 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HCC) NPH (normal pressure hydrocephalus) (HCC) Idiopathic normal pressure hydrocephalus (INPH) documented in this encounter [facility] note* Diagnosis Onset Date Resolution Status Anxiety and depression acute Essential hypertension acute Hyperlipidemia acute Osteoarthritis cervical spine acute PAD (peripheral artery disease) acute [facility] Work Phone: Evaluation note* Diagnosis 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 [facility] Work Phone: Evaluation note* Diagnosis 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 Griselda Hastings. 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) Malignant neoplasm of head, face, and neck documented in this encounter [facility]* Diagnosis Malignant neoplasm of head, face and neck (HCC) Malignant neoplasm of head, face, and neck Lung nodules Other nonspecific abnormal finding of lung field 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) Malignant neoplasm of head, face, and neck Localized swelling, mass or lump of neck Swelling, mass, or lump in head and neck documented in this encounter [facility]* Diagnosis Cervical radiculopathy- Primary Brachial neuritis or radiculitis nos Cervical radiculopathy Brachial neuritis or radiculitis nos Senile osteoporosis Senile osteoporosis documented in this encounter [facility] Work Phone: [phone] note* Diagnosis Cervical radiculopathy- Primary Brachial neuritis or radiculitis nos Status post cervical spinal fusion Arthrodesis status Acute postoperative pain Other acute postoperative pain Muscle spasms of neck documented in this encounter [facility] Work Phone: [phone] note* Diagnosis Other nerve root and plexus disorders- Primary Cervical paraspinal muscle spasm Spasm of muscle Cervical stenosis of spinal canal Spinal stenosis in cervical region [facility] Diagnosis Cervical radiculopathy- Primary Brachial neuritis or radiculitis nos Occipital neuralgia of left side Balance problem Abnormality of gait documented in this encounter [facility] Work Phone: [phone] note* 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 [facility] Work Phone: [phone] note* 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 [facility] Work Phone: [phone] note* Diagnosis Cervical radiculopathy- Primary Brachial neuritis or radiculitis nos Senile osteoporosis documented in this encounter [facility] Work Phone: [phone] note* Diagnosis Cervical radiculopathy Brachial neuritis or radiculitis nos Senile osteoporosis Cervical radiculopathy Brachial neuritis or radiculitis nos Senile osteoporosis Cervical radiculopathy Brachial neuritis or radiculitis nos Senile osteoporosis documented in this encounter [facility] Work Phone: Evaluation note* Diagnosis Cervical radiculopathy Brachial neuritis or radiculitis nos Senile osteoporosis Cervical radiculopathy Brachial neuritis or radiculitis nos Cervical radiculopathy Brachial neuritis or radiculitis nos Senile osteoporosis documented in this encounter [facility] Work Phone: Evaluation note* Diagnosis Cervical radiculopathy Brachial neuritis or radiculitis nos Senile osteoporosis Cervical radiculopathy Brachial neuritis or radiculitis nos Cervical radiculopathy Brachial neuritis or radiculitis nos Senile osteoporosis documented in this encounter [facility] Work Phone: Evaluation note* Diagnosis Status post cervical spinal fusion- Primary Arthrodesis status documented in this encounter [facility] Work Phone: Evaluation note* Diagnosis Nerve root and plexus disorder, unspecified- Primary [facility] Diagnosis Nerve root and plexus disorder, unspecified- Primary [facility]* Diagnosis Nerve root and plexus disorder, unspecified- Primary [facility]* Diagnosis Status post cervical spinal fusion- Primary Arthrodesis status documented in this encounter [facility] Work Phone: Evaluation note* Diagnosis 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 Malignant neoplasm of head, face, and neck [facility]* Diagnosis Primary squamous cell carcinoma [...] of left shoulder documented in this encounter [facility] HealthcareEvaluation note* Diagnosis Acute pain of right shoulder- Primary Nerve root and plexus disorder, unspecified Acute pain of left shoulder documented in this encounter [facility] HealthcareHospital Discharge instructions Additional Instructions Obtain Elsy pot and perform nasal irrigations twice a day[facility] Work Phone: Hospital Discharge instructions Additional Instructions Please return to emergency department for any new or worrisome symptoms including any chest pain, shortness of breath, vomiting, fever. Take all antibiotics even if you start feeling better.[facility] Work Phone: Hospital Discharge instructions Additional Instructions Push fluids Zofran for nausea vomiting Follow-up with the GI specialist as discussed for possible colonoscopy Return here if any problems persist or worsen If you are able to collect a urine specimen take it to the lab.[facility] Work Phone: Reason for referral (narrative)* Diagnostic [...] SCAN OF CHEST CONTRAST Racquel Cole MD [address] [place] [address] [place] [address] Ct Imaging [facility] Referral ID Status Reason Start Date Expiration Date V isits Requested Visits Authorized [id number] Closed Auto-Generate d Referral 09/23/2021 11/22/2021 1 [...] CAT OF NECK TISSUE Racquel Cole MD [address] [place] [address] [place] [address] [place] [address] Referral ID Status Reason Start Date Expiration Date V isits Requested Visits Authorized [id number] Closed Auto-Generate d Referral 09/23/2021 11/22/2021 1 1 [facility] for referral (narrative)No reason for referral information availableK[facility] Work Phone: Reason for visit Narrative* Auth/Cert Specialty Diagnoses / Procedures Referred By Contac t Referred To Contact Diagnoses Cervical radiculopathy Senile osteoporosis Cervical radiculopathy [M54.12] Senile osteoporosis [M81.0] Procedures HI ARTHRD ANT INTERBODY DECOMPRESS CERVICAL BELW C2 HI ARTHRD ANT INTERBODY DECOMPRESS CERVICAL BELW C2 HI ARTHRD ANT INTERDY CERVCL BELW C2 EA ADDL NTRSPC HI ALLOGRAFT FOR SPINE SURGERY ONLY STRUCTURAL HI MICROSURG TQS REQ USE OPERATING MICROSCOPE Fusion Spine Anterior Cervical and Discectomy C5-6, C6-7 Doretha Harris MD [address] [facility] [address] [place] [address] Phone: tel: fax: [facility] [place] [address] [place] [address] fax: Referral ID Status Reason Start Date Expiration Date Visits Re quested Visits Authorized [id number] 1 1 [facility] Work Phone: Reason for visit Narrative* Injection (Routine) - Closed Specialty Diagnoses / Procedures Referred By Contac t Referred To Contact Neurology Diagnoses Acute pain of left shoulder Procedures HI OFFICE/OUTPATIENT NEW HIGH MDM 60 MINUTES Oziel Cadena MD [address] [facility] [address], [place] [address] Phone: tel: fax: Oziel Cadena MD [address] [place] [address] Phone: tel: fax: Referral ID Status Reason Start Date Expiration Date V isits Requested Visits Authorized [id number] Closed Perform Procedure 11/12/2024 05/18/2025 1 1 [...] Documents on File Type Date Recorded Patient [employer] Expl anation Living Will 10/05/2023 9:39 AM Documents on File Type Date Recorded Patient [employer] Expl anation Living Will 10/05/2023 9:39 AM [...] tember 2024 10:28am PAD (peripheral artery disease) [facility] 2024 10:28am Screening for prostate cancer February 19, 2025 10:28am Chief Complaint Admit Date follow up Dyspepsia/GERD January 12, 2025 3:14pm medicare wellness February 19, 2025 10:28am I73.9 February 26, 2025 1:18pm Reason for Visit Admit Date Colon polyps January 12, 2025 3:14 pm Dyspepsia January 12, 2025 3:14 pm GERD (gastroesophageal reflux disease) [facility] 2024 3:14pm Anxiety and depression February 19 [...] brain (HCC) Procedures CONSULT TO [facility]GERY [facility] Racquel Cole MD [address] [place] [address] [place] [address] Referral ID Status Reason Start Date Expiration Date Visits Requested Visits Authorized [id number] Authorized PCP Requested Referral 10/13/2021 10/13/2022 1 1 Specialty Diagnoses / Procedures Referred By Roverto t Referred To Contact CT IMAGING Diagnoses Lung nodules Procedures CT CHEST W IVCON DIAGNOSTIC COMPUTED TOMOGRAPHY THORAX W/CONTRAST Racquel Cole MD [address] [place] [address] [place] [address] Ct Imaging Referral ID Status Reason Start Date Expiration Date Visits Requested Visits Authorized [id number] Pending Review Auto-Generat ed Referral 10/30/2022 11/29/2022 1 1 Specialty Diagnoses / Procedures Referred By Roverto t Referred To Contact CT IMAGING Diagnoses Malignant neoplasm of head, face and neck (HCC) Procedures CT NECK SOFT TISSUE W IVCON CT SOFT TISSUE NECK W/CONTRAST MATERIAL Racquel Cole MD [address] [place] [address] [place] [address] Ct Imaging Referral ID Status Reason Start Date Expiration Date Visits Requested Visits Authorized [id number] Pending Review Auto-Generat ed Referral 10/30/2022 11/29/2022 1 1 Reason *FU 10/31 Evaluate and Treat Brainstem Lesion 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) Referral Organization [facility] urosurgery Referring Provider First Name Sheng Referring Provider Last Name Wyatt Referring Provider Specialty Neurosurger y Referred Organization [facility] Referred Provider Jonny Vigil Referred Address [address] [place] [address] [place], [place],[address] Referred Provider Specialty Neurological Surgery Referral Priority Routine General Notes Fore, Linnea M 022 02:09:54 PM >Received and fax referral today Reason consult and treat (p t is willing to see him in [place], if not then will see at [facility]) 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) Diagnosis 2 Cervical pain (neck) (M54.2) Diagnosis 3 Pressure in head (R5 1.9) Referral Organization [facility] [place] Referring Provider First Name Griselda Referring Provider Last Name Darling Referring Provider Specialty Family Prac henny Referred Organization [facility] Referred Provider Oziel Cadena Referred Address [address] [facility], [place],[address] Referral Priority Routine Specialty Diagnoses / Procedures Referred By Roverto moraes Referred To Contact MR IMAGING Diagnoses 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HCC) Procedures MRI BRAIN WO/W IVCON MRI BRAIN BRAIN STEM W/O W/CONTRAST MATERIAL Kelly Perez, BILLY [address] [place] [address] Mr Imaging Referral ID Status Reason Start Date Expiration Date Visits Requested Visits Authorized [id number] Authorized Auto-Generat ed Referral 09/20/2022 10/20/2023 1 1 Referral ID Status Reason Start Date Expiration Date V isits Requested Visits Authorized [id number] Closed Auto-Generate d Referral 09/20/2022 10/20/2023 1 [...] NOMS Referred Provider Manuela Ballesteros Referred Address ,[place], [place],[address] Referred Provider Specialty Ear, Nose an d Throat Referral Priority Routine General Notes Yessica Brown 12:40:36 PM >received today, pt has medicaid insurance, will send to Dr. Ballesteros, attachments made, waiting for notes to be locked Reason consult and treat Diagnosis 1 PAD (peripheral arnie ry disease) (I73.9) Referral Organization [facility] Referring Provider First Name Griselda Referring Provider Last Name Darling Referring Provider Specialty Family Prac henny Referred Organization [facility] Vascular Surge ry Referred Provider Filipe Hess Referred Address [address],[facility] [address],[place], [place],[address] Referred Provider Specialty Vascular Abdirahman yvon Referral Priority Routine General Notes Linnea Alvarado 023 11:58:24 AM >Received today and sent P2P Specialty Diagnoses / Procedures Referred By Roverto moraes Referred To Contact CT IMAGING Diagnoses 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) Procedures CT CHEST W IVCON DIAGNOSTIC COMPUTED TOMOGRAPHY THORAX W/CONTRAST Racquel Cole MD [address] [facility] [place] [address] [place] [address] Referral ID Status Reason Start Date Expiration Date Visits Requested Visits Authorized [id number] Authorized Auto-Generat ed Referral 11/01/2024 12/01/2024 1 1 Specialty Diagnoses / Procedures Referred By Contac t Referred To Contact CT IMAGING Diagnoses 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) Procedures CT NECK SOFT TISSUE W IVCON CT SOFT TISSUE NECK W/CONTRAST MATERIAL Racquel Cloe MD [address] [place] [address] [place] [address] Ct Imaging [facility] Referral ID Status Reason Start Date Expiration Date Visits Requested Visits Authorized [id number] Authorized Auto-Generat ed Referral 11/01/2024 12/01/2024 1 1 Referral ID Status Reason Start Date Expiration Date V isits Requested Visits Authorized [id number] Closed Auto-Generate d Referral 10/26/2023 06/17/2024 1 1 Referral ID Status Reason Start Date Expiration Date V isits Requested Visits Authorized [id number] Closed Auto-Generate d Referral 10/26/2023 06/17/2024 1 1 Specialty Diagnoses / Procedures Referred By Contac t Referred To Contact CT IMAGING Diagnoses Lung nodules Procedures CT CHEST W IVCON DIAGNOSTIC COMPUTED TOMOGRAPHY THORAX W/CONTRAST Racquel Cole MD [address] [place] [address] [place] [address] [place] [address] Referral ID Status Reason Start Date Expiration Date V isits Requested Visits Authorized [id number] Closed Auto-Generate d Referral 10/30/2022 11/29/2022 1 1 Specialty Diagnoses / Procedures Referred By Contac t Referred To Contact CT IMAGING Diagnoses Malignant neoplasm of head, face and neck (HCC) Procedures CT NECK SOFT TISSUE W IVCON CT SOFT TISSUE NECK W/CONTRAST MATERIAL Racquel Cole MD [address] [place] [place] [address] Ct Imaging [facility] Referral ID Status Reason Start Date Expiration Date V isits Requested Visits Authorized [id number] Closed Auto-Generate d Referral 10/30/2022 11/29/2022 1 1 Specialty Diagnoses / Procedures Referred By Contac t Referred To Contact Radiology 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 [place] [address] [place] [address] Referral ID Status Reason Start Date Expiration Date Visits Requested Visits Authorized [id number] Pending Review Perform Procedure 12/13/2023 12/12/2024 1 1 Specialty Diagnoses / Procedures Referred By Contac t Referred To Contact Radiology 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 tumor perfusion protocol w and wo IV contrast Shimon Heaton, PA-C [address] [place] [address] Referral ID Status Reason Start Date Expiration Date Visits Requested Visits Authorized [id number] Authorized Perform Procedure 10/24/2023 10/23/2024 1 1 Specialty Diagnoses / Procedures Referred By Contac t Referred To Contact Radiology Diagnoses Cervical radiculopathy Procedures XR cervical spine complete 6+ views Doretha Harris MD [address] [facility], [address] [address] Referral ID Status Reason Start Date Expiration Date Visits Requested Visits Authorized [id number] Authorized Perform Procedure 01/03/2024 01/02/2025 1 1 Specialty Diagnoses / Procedures Referred By Contac t Referred To Contact Radiology Diagnoses Senile osteoporosis Procedures XR DEXA bone density axial skeleton w VFA Doretha Hraris MD [address] [facility], [address] [address] Referral ID Status Reason Start Date Expiration Date Visits Requested Visits Authorized [id number] Pending Review Perform Procedure 01/03/2024 01/02/2025 1 1 Specialty Diagnoses / Procedures Referred By Contac t Referred To Contact Diagnoses Cervical radiculopathy Senile osteoporosis Procedures ECG 12 lead Doretha Harris MD [address] [facility], [address] [place] [address] Referral ID Status Reason Start Date Expiration Date V isits Requested Visits Authorized [id number] Authorized 01/09/2024 01/08/2025 1 1 Specialty Diagnoses / Procedures Referred By Contpalomo t Referred To Contact Radiology Diagnoses Cervical radiculopathy Procedures XR DEXA bone density Doretha Harris MD [address] [facility], [address] [place] [address] Referral ID Status Reason Start Date Expiration Date Visits Requested Visits Authorized [id number] Authorized Perform Procedure 01/08/2024 01/07/2025 1 1 [...] section and content) DATE CREATED AUTHOR 08/01/2019 [facility] DATE CREATED AUTHOR AUTHOR'S ORGANIZ ATION 11/05/2021 [employer] DATE CREATED AUTHOR AUTHOR'S ORGANIZ ATION 01/19/[address] [facility] dical Specialist DATE CREATED AUTHOR AUTHOR'S ORGANIZ ATION 10/02/2022 [facility] DATE CREATED AUTHOR AUTHOR'S ORGANIZ ATION 12/25/2022 [facility] DATE CREATED AUTHOR AUTHOR'S ORGANIZ ATION 08/03/2023 [facility] DATE CREATED AUTHOR AUTHOR'S ORGANIZ ATION 02/13/2024 [facility] DATE CREATED AUTHOR AUTHOR'S ORGANIZ ATION 10/27/2024 [facility] DATE CREATED AUTHOR AUTHOR'S ORGANIZ ATION 11/13/2024 [facility] DATE CREATED AUTHOR AUTHOR'S ORGANIZ ATION 01/01/2025 [facility] DATE CREATED AUTHOR AUTHOR'S ORGANIZ ATION 01/03/2025 [facility] DATE CREATED AUTHOR AUTHOR'S ORGANIZ ATION 02/06/2025 [facility] DATE CREATED AUTHOR AUTHOR'S ORGANIZ ATION 02/14/2025 [facility] DATE CREATED AUTHOR AUTHOR'S ORGANIZ ATION 02/17/2025 [facility] DATE CREATED AUTHOR AUTHOR'S ORGANIZ ATION 03/08/2025 [facility] Source Comments (unrecognize d section and content) In the event this informatio n is protected by the Federal Confidentiality of Alcohol and Drug Abuse Patient Records regulations: The Federal rules restrict any use of the information to criminally investigate or prosecute any alcohol or drug abuse patient.[facility] the event this information is protected by the Federal Confidentiality of Alcohol and Drug Abuse Patient Records regulations: The Federal rules restrict any use of the information to criminally investigate or prosecute any alcohol or drug abuse patient.[facility] the event this information is protected by the Federal Confidentiality of Alcohol and Drug Abuse Patient Records regulations: The Federal rules restrict any use of the information to criminally investigate or prosecute any alcohol or drug abuse patient.[facility] the event this information is protected by the Federal Confidentiality of Alcohol and Drug Abuse Patient Records regulations: The Federal rules restrict any use of the information to criminally investigate or prosecute any alcohol or drug abuse patient.[facility] the event this information is protected by the Federal Confidentiality of Alcohol and Drug Abuse Patient Records regulations: The Federal rules restrict any use of the information to criminally investigate or prosecute any alcohol or drug abuse patient.[facility] the event this information is protected by the Federal Confidentiality of Alcohol and Drug Abuse Patient Records regulations: The Federal rules restrict any use of the information to criminally investigate or prosecute any alcohol or drug abuse patient.[facility] the event this information is protected by the Federal Confidentiality of Alcohol and Drug Abuse Patient Records regulations: The Federal rules restrict any use of the information to criminally investigate or prosecute any alcohol or drug abuse patient.[facility] the event this information is protected by the Federal Confidentiality of Alcohol and Drug Abuse Patient Records regulations: The Federal rules restrict any use of the information to criminally investigate or prosecute any alcohol or drug abuse patient.[facility] the event this information is protected by the Federal Confidentiality of Alcohol and Drug Abuse Patient Records regulations: The Federal rules restrict any use of the information to criminally investigate or prosecute any alcohol or drug abuse patient.[facility] the event this information is protected by the Federal Confidentiality of Alcohol and Drug Abuse Patient Records regulations: The Federal rules restrict any use of the information to criminally investigate or prosecute any alcohol or drug abuse patient.[facility] the event this information is protected by the Federal Confidentiality of Alcohol and Drug Abuse Patient Records regulations: The Federal rules restrict any use of the information to criminally investigate or prosecute any alcohol or drug abuse patient.[facility] the event this information is protected by the Federal Confidentiality of Alcohol and Drug Abuse Patient Records regulations: The Federal rules restrict any use of the information to criminally investigate or prosecute any alcohol or drug abuse patient.[facility] Center[facility] the event this information is protected by the Federal Confidentiality of Alcohol and Drug Abuse Patient Records regulations: The Federal rules restrict any use of the information to criminally investigate or prosecute any alcohol or drug abuse patient.[facility] the event this information is protected by the Federal Confidentiality of Alcohol and Drug Abuse Patient Records regulations: The Federal rules restrict any use of the information to criminally investigate or prosecute any alcohol or drug abuse patient.[facility] CenterIn the event this information is protected by the Federal Confidentiality of Alcohol and Drug Abuse Patient Records regulations: The Federal rules restrict any use of the information to criminally investigate or prosecute any alcohol or drug abuse patient.[facility] Reason for Visit (unrecogniz ed section and content) Reason Comments Results Reason Comments Head and Neck Cancer Specialty Diagnoses / Procedures Referred By Contac t Referred To Contact Hematology/Oncology / HEMATOLOGY/ONCOLOGY Diagnoses Follow-up examination 1 year follow up LABS WITH CT Procedures EST PATIENT Racquel Cole MD [address] [place] [address] Racquel Cole MD [address] [place] [address] [place] [address] Referral ID Status Reason Start Date Expiration Date Visits Re quested Visits Authorized [id number] Closed 10/13/2021 06/17/2022 1 1 Reason Comments Referral Information Neurosurgery Reason Comments Established Patient Specialty Diagnoses / Procedures Referred By Contac t Referred To Contact Hematology/Oncology / HEMATOLOGY/ONCOLOGY Diagnoses 2 week phone follow up [phone] Procedures PHYS/QHP TELEPHONE EVALUATION 5-10 MIN PROVIDER SPECIALTY PHONE CALL Racquel Cole MD [address] [place] [address] [place] [address] Racquel Cole MD [address] [place] [address] [place] [address] Referral ID Status Reason Start Date Expiration Date Visits Re quested Visits Authorized [id number] Closed 10/27/2021 06/17/2022 1 1 Reason Comments Triage Internal Referral--o ld Reason Comments Appointment Reason Comments New Patient Specialty Diagnoses / Procedures Referred By Contac t Referred To Contact Neurology / BRAIN TUMOR Diagnoses Hydrocephalus (HCC) Hydrocephalus Procedures OFFICE/OUTPATIENT NEW MODERATE MDM 45-59 MINUTES NEW SURGICAL Oziel Cadena MD [address] [place] [address] Kelly Perez PA-C [address] [place] [id number] Referral ID Status Reason Start Date Expiration Date Visits Re quested Visits Authorized [id number] Closed 09/13/2022 06/17/2023 1 1 Reason Comments Patient Question Reason Comments Radiology MRI Specialty Diagnoses / Procedures Referred By Contac t Referred To Contact MR IMAGING Diagnoses 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HCC) Procedures MRI BRAIN WO/W IVCON MRI BRAIN BRAIN STEM W/O W/CONTRAST MATERIAL Kelly Perez PA-C [address] [place] [address] Mr Imaging Referral ID Status Reason Start Date Expiration Date V isits Requested Visits Authorized [id number] Closed Auto-Generate d Referral 09/20/2022 10/20/2023 1 [...] NECK W/CONTRAST MATERIAL Racquel Cole MD [address] [facility] [address] [place] [id number] Ct Imaging [facility] Referral ID Status Reason Start Date Expiration Date V isits Requested Visits Authorized [id number] Closed Auto-Generate d Referral 10/26/2023 06/17/2024 1 1 Specialty Diagnoses / Procedures Referred By Contac t Referred To Contact CT IMAGING Diagnoses Lung nodules Procedures CT CHEST W IVCON DIAGNOSTIC COMPUTED TOMOGRAPHY THORAX W/CONTRAST Racquel Cole MD [address] [facility] [place] [address] Ct Imaging [facility] Referral ID Status Reason Start Date Expiration Date V isits Requested Visits Authorized [id number] Closed Auto-Generate d Referral 10/30/2022 11/29/2022 1 1 Specialty Diagnoses / Procedures Referred By Contac t Referred To Contact CT IMAGING Diagnoses Malignant neoplasm of head, face and neck (HCC) Lung nodules 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) Localized swelling, mass or lump of neck Procedures CT NECK SOFT TISSUE W IVCON CONTRAST CAT OF NECK TISSUE Racquel Cole MD [address] [place] [address] [place] [address] [place] [address] Referral ID Status Reason Start Date Expiration Date V isits Requested Visits Authorized [id number] Closed Auto-Generate d Referral 09/23/2021 11/22/2021 1 1 Reason Comments Neck Pain Tingling Numbness Specialty Diagnoses / Procedures Referred By Contac t Referred To Contact Radiology 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 tumor perfusion protocol w and wo IV contrast Shimon Heaton PA-C [address] [place] [id number] Referral ID Status Reason Start Date Expiration Date Visits Requested Visits Authorized [id number] Authorized Perform Procedure 10/24/2023 10/23/2024 1 1 Reason Comments Neck Pain Specialty Diagnoses / Procedures Referred By Contac t Referred To Contact Diagnoses Cervical radiculopathy Senile osteoporosis Procedures ECG 12 lead Doretha Harris MD [address] [facility], [address] [address] Referral ID Status Reason Start Date Expiration Date V isits Requested Visits Authorized [id number] Authorized 01/09/2024 01/08/2025 1 1 Specialty Diagnoses / Procedures Referred By Contac t Referred To Contact Radiology Diagnoses Cervical radiculopathy Procedures XR cervical spine complete 6+ views Doretha Harris MD [address] [facility], [address] [address] Referral ID Status Reason Start Date Expiration Date Visits Requested Visits Authorized [id number] Authorized Perform Procedure 01/03/2024 01/02/2025 1 1 Specialty Diagnoses / Procedures Referred By Contac t Referred To Contact Radiology Diagnoses Cervical radiculopathy Procedures XR DEXA bone density Doretha Harris MD [address] [facility], [address] [place] [address] Referral ID Status Reason Start Date Expiration Date Visits Requested Visits Authorized [id number] Authorized Perform Procedure 01/08/2024 01/07/2025 1 1 [...] COMPUTED TOMOGRAPHY THORAX W/CONTRAST Racquel Cole MD [address] [place] [address] [place] [address] Phone: tel: fax: [place] [address] Referral ID Status Reason Start Date Expiration Date V isits Requested Visits Authorized [id number] Closed Auto-Generate d Referral 11/01/2024 12/01/2024 1 1 Reason Comments Skin Check Care Teams (unrecognized sec tion and content) Cocoa Press Operator Relationship Specialty Start Date End Date Griselda Hastings [address] [place], [place] [phone] PCP - General Family Practice 11/20/18 Griselda Hastings [address] [place] [phone] Referring Family Practice 11/20/18 Cocoa Press Operator Relationship Specialty Start Date End Date Griselda Hastings [address] [place], [place] [phone] PCP - General Family Practice 11/20/18 Griselda Hastings [address] [place] [phone] Referring Family Practice 11/20/18 Cocoa Press Operator Relationship Specialty Start Date End Date Griselda Hastings [address] [place], [place] [phone] PCP - General Family Practice 11/20/18 Griselda Hastings [address] [place] [address], [place] [phone] Referring Family Practice 11/20/18 Cocoa Press Operator Relationship Specialty Start Date End Date Griselda Hastings [address] [place] [address], [place] [phone] PCP - General Family Practice 11/20/18 Griselda Hastings [address] [place] [address], [place] [phone] Referring Family Practice 11/20/18 Cocoa Press Operator Relationship Specialty Start Date End Date Griselda Hastings [address] [place] [address], [place] [phone] PCP - General Family Medicine 11/20/18 Griselda Hastings [address] [place] [address], [place] [phone] Referring Family Medicine 11/20/18 Cocoa Press Operator Relationship Specialty Start Date End Date Griselda Hastings [address] [place] [address], [place] [phone] PCP - General Family Medicine 11/20/18 Griselda Hastings [address] [place] [address], [place] [phone] Referring Family Medicine 11/20/18 Team Status: Inactive [...] Primary Care Provider Active Nikole Mota APRN WALL WASHER-C Attending Provider A ctive Team Status: Inactive Member Role Status Dates Griselda Hastings , Primary Care Provider Active Oziel Cadena MD Attending Provider Active Team Status: Inactive Member Role Status Dates Griselda Hastings , Primary Care Provider Active Nikole Mota APRN WALL WASHER-C Attending Provider A ctive Cocoa Press Operator Relationship Specialty Start Date End Date Griselda Hastings [address] [place] [address], [place] [phone] PCP - General Family Medicine 11/20/18 Griselda Hastings [address] [place] [address], [place] [phone] Referring Family Medicine 11/20/18 Oziel Cadena MD [address] [facility] [address] [place] [address] Referring Neurology 08/18/22 Cocoa Press Operator Relationship Specialty Start Date End Date Griselda Hastings [address] [place] [phone] PCP - General Family Medicine 11/20/[address] [place] [address] Referring Family Medicine 11/20/18 Oziel Cadena MD [address] [facility] [address] [place] [address] Referring Neurology 08/18/22 Cocoa Press Operator Relationship Specialty Start Date End Date Griselda Hastings [address] [place] [phone] PCP - General Family Medicine 11/20/[address] [place] [phone] Referring Family Medicine 11/20/18 Oziel Cadena MD [address] [facility] [address] [place] [address] Referring Neurology 08/18/22 Team Status: Inactive Member [...] Active Ruddy Harvey MD Attending Provider Active Cocoa Press Operator Relationship Specialty Start Date End Date Griselda Hastings DO [address] [place] [phone] PCP - General Family Medicine 02/13/23 Cocoa Press Operator Relationship Specialty Start Date End Date Griselda Hastings DO [address] [place] [phone] PCP - General Family Medicine 02/13/23 Team Status: Inactive Member Role Status Poornima Hastings DO Primary Care Provider Active Sta rt: May 04, 2023 End: May 04, 2023 Nikole Mota APRN WALL WASHER-C Attending Provider Active Start: April End: May [...] 2023 Team Status: Inactive Member Role Status Poornmia Hastings DO Primary Care Provide r, Attending [...] September 05, 2023 End: September 05, 2023 Cocoa Press Operator Relationship Specialty Start Date End Date Griselda Hastings DO PCP - General 01/03/19 Cocoa Press Operator Relationship Specialty Start Date End Date Griselda Hastings DO [address] [place] [address] 1 [place] [address] PCP - General 01/03/19 [place] [address] [place] [address] Consulting Physician Hematology and Oncology 10/05/23 Team [...] October 29, 2023 End: October 29, 2023 Cocoa Press Operator Relationship Specialty Start Date End Date Griselda Hastings [address] [place] [phone] PCP - General Family Medicine 11/20/18 Griselda Hastings [address] [place] [phone] Referring Family Medicine 11/20/18 Oziel Cadena MD [address] [facility] [address] [address] Referring Neurology 08/18/22 Team Status: Active Member Role Status Dates Lilliam Cason MD Continuous Process Machine Operator Active Griselda Hastings DO Primary Care Provider Active Team Status: Inactive Member Role Status Poornima Hastings DO Primary Care Provide r, Attending Provider Active Start: December 03, 2023 End: December 03, 2023 Team Status: Inactive Member Role Status Dates Griselda Hastings DO Primary Care Provide r, Attending Provider Active Start: January 31, 2024 End: January 31, 2024 Cocoa Press Operator Relationship Specialty Start Date End Date Griselda Hastings [address] [place] [phone] PCP - General Family Medicine 11/20/18 Griselda Hastings [address] [place] [phone] Referring Family Medicine 11/20/18 Oziel Cadena MD [address] [facility] [address] [place] [phone] Referring Neurology 08/18/22 Cocoa Press Operator Relationship Specialty Start Date End Date Griselda Hastings [address] [place], [place] [phone] PCP - General Family Medicine 11/20/18 Griselda Hastings [address] [place], [place] [phone] Referring Family Medicine 11/20/18 Oziel Cadena MD [address] [facility] [address] [place] [address] Referring Neurology 08/18/22 Cocoa Press Operator Relationship Specialty Start Date End Date Griselda Hastings [address] [place] [phone] PCP - General Family Medicine 11/20/18 Griselda Hastings [address] [place] [address] Referring Family Medicine 11/20/18 Cocoa Press Operator Relationship Specialty Start Date End Date Griselda Hastings DO [address] [place] [address] PCP - General 01/03/19 [place] [address] [place] [address] Consulting Physician Hematology and Oncology 10/05/23 Solomon Narayanan PA-C [address] [facility], [address] [address] [address] Physician Inspection Clerk Neurosurgery 12/12/23 Team Status: Inactive Member Role Status Dates Griselda Hastings DO Primary Care Provide r, Attending Provider Active Start: April 01, 2024 End: April 01, 2024 Cocoa Press Operator Relationship Specialty Start Date End Date Griselda Hastings DO [address] [place] [address] PCP - General 01/03/19 [place] [address] [place] [address] Consulting Physician Hematology and Oncology 10/05/23 Solomon Narayanan PA-C 5007 [facility], [address] [address] Physician Inspection Clerk Neurosurgery 12/12/23 Cocoa Press Operator Relationship Specialty Start Date End Date Griselda Hastings DO [address] [place] [address] PCP - General 01/03/19 [place] [address] [place] [address] Consulting Physician Hematology and Oncology 10/05/23 Solomon Narayanan PA-C [address] [place] [address] Physician Inspection Clerk Neurosurgery 12/12/23 Team Status: Inactive Member Role Status Dates Griselda Hastings DO Primary Care Provider Active Sta rt: April 28, 2024 End: April 28, 2024 Lilliam Cason MD Attending Provider Active Sta rt: April 28, 2024 End: April 28, 2024 Cocoa Press Operator Relationship Specialty Start Date End Date Griselda Hastings DO [address] [phone] PCP - General Family Medicine 02/13/23 Cocoa Press Operator Relationship Specialty Start Date End Date Griselda Hastings DO [address] [phone] PCP - General Family Medicine 02/13/23 Cocoa Press Operator Relationship Specialty Start Date End Date Griselda Hastings DO [address] [place] [address] PCP - General 01/03/19 [place] [address] [place] [address] Consulting Physician Hematology and Oncology 10/05/23 Solomon Narayanan PA-C 5001 Transportation [facility], [address] [address] Physician Inspection Clerk Neurosurgery 12/12/23 Cocoa Press Operator Relationship Specialty Start Date End Date Griselda Hastings DO [address] [place] [address] PCP - General 01/03/19 [place] [address] [place] [address] Consulting Physician Hematology and Oncology 10/05/23 Solomon Narayanan PA-C 5001 Transportation [facility], [address] [place] [address] Physician Inspection Clerk Neurosurgery 12/12/23 Cocoa Press Operator Relationship Specialty Start Date End Date Griselda Hastings DO [address] [place] [address] PCP - General 01/03/19 [place] [address] [place] [address] Consulting Physician Hematology and Oncology 10/05/23 Solomon Narayanan PA-C 5001 [address] [facility], [address] [place] [address] Physician Inspection Clerk Neurosurgery 12/12/23 Cocoa Press Operator Relationship Specialty Start Date End Date Griselda Hastings DO [address] [place] [address] PCP - General 01/03/19 [place] [address] [place] [address] Consulting Physician Hematology and Oncology 10/05/23 Solomon Narayanan PA-C 5001 Transportation [facility], [address] [address] Physician Inspection Clerk Neurosurgery 12/12/23 Cocoa Press Operator Relationship Specialty Start Date End Date Griselda Hastings DO [address] [place] [address] PCP - General 01/03/19 [place] [address] [place] [address] Consulting Physician Hematology and Oncology 10/05/23 Solomon Narayanan PA-C 5001 Transportation [facility], [address] [address] Physician Inspection Clerk Neurosurgery 12/12/23 Cocoa Press Operator Relationship Specialty Start Date End Date Griselda Hastings DO [address] [place] [address] PCP - General 01/03/19 [place] [address] [place] [address] Consulting Physician Hematology and Oncology 10/05/23 Solomon Narayanan PA-C 5001 [address] [facility], [address] [address] Physician Inspection Clerk Neurosurgery 12/12/23 Team Status: Inactive Member Role Status Dates Griselda Hastings DO Primary Care Provider Active Sta rt: June 24, 2024 End: June 24, 2024 Solomon Narayanan PA-C Attending Provider Active St art: June 24, 2024 End: June 24, 2024 Cocoa Press Operator Relationship Specialty Start Date End Date Griselda Hastings DO [address], [place] [id number] PCP - General 01/03/19 [place] [address] [place] [address] Consulting Physician Hematology and Oncology 10/05/23 Solomon Narayanan PA-C [address] [place] [address] Physician Inspection Clerk Neurosurgery 12/12/23 Cocoa Press Operator Relationship Specialty Start Date End Date Griselda Hastings DO [address] [place] [facility] [place] [address] PCP - General Family Medicine 02/13/23 Team Status: Inactive Member Role Status Dates Griselda Hastinsg DO Primary Care Provide r, Attending Provider Active Start: July 03, 2024 End: July 03, 2024 Cocoa Press Operator Relationship Specialty Start Date End Date Griselda Hastings DO [address] [place] [facility] [place] [address] PCP - General Family Medicine 02/13/23 Cocoa Press Operator Relationship Specialty Start Date End Date Griselda Hastings DO [address] [place] [address] PCP - General Family Medicine [...] September 11, 2024 End: September 11, 2024 Cocoa Press Operator Relationship Specialty Start Date End Date Griselda Hastings DO [facility] [place] [address] PCP - General Family Medicine 02/13/23 Team [...] September 20, 2024 End: September 20, 2024 Cocoa Press Operator Relationship Specialty Start Date End Date Griselda [...] October 07, 2024 End: October 07, 2024 Mnaisha Negron APRN Attending Provider Active Start: October [...] October 10, 2024 End: October 10, 2024 Cocoa Press Operator Relationship Specialty Start Date End Date Griselda Hastings DO [address] [place] [address] PCP - General 01/03/19 [place] [address] [place] [address] Consulting Physician Hematology and Oncology 10/05/23 Solomon Narayanan PA-C [address] [place] [address] Physician Inspection Clerk Neurosurgery 12/12/23 Cocoa Press Operator Relationship Specialty Start Date End Date Griselda Hastings DO [address] [place], [place] [id number] PCP - General 01/03/19 [place] [address] [place] [address] Consulting Physician Hematology and Oncology 10/05/23 Solomon Narayanan PA-C [address] [place] [address] Physician Inspection Clerk Neurosurgery 12/12/23 Team Status: Inactive Member Role Status Dates Griselda Hastings DO Primary Care Provider Active Sta rt: October 27, 2024 End: October 27, 2024 Lilliam Cason MD Attending Provider Active Sta rt: October 27, 2024 End: October 27, 2024 Cocoa Press Operator Relationship Specialty Start Date End Date Griselda Hastings [address] [place] [phone] PCP - General Family Medicine 11/20/18 Griselda Hastings [address] [place] [phone] Referring Family Medicine 11/20/18 Oziel Cadena MD [address] [facility] [address] [place] [phone] Referring Neurology 08/18/22 Cocoa Press Operator Relationship Specialty Start Date End Date Griselda Hastings [address] [place] [phone] PCP - General Family Medicine 11/20/18 Griselda Hastings [address] [place] [phone] Referring Family Medicine 11/20/18 Oziel Cadena MD [address] [facility] [address] [place] [phone] Referring Neurology 08/18/22 Cocoa Press Operator Relationship Specialty Start Date End Date Griselda [...] November 19, 2024 End: November 19, 2024 Cocoa Press Operator Relationship Specialty Start Date End Date Griselda Hastings DO PCP - [facility] Medicine 02/13/23 Team Status: Inactive Member Role Status Dates Griselda Hastings DO Primary Care Provide r, Attending Provider Active Start: 2024 End: 2024 Cocoa Press Operator Relationship Specialty Start Date End Date Griselda Hastings DO PCP - [facility] Medicine 02/13/23 Team Status: Active Member Role [...] January 12, 2025 End: January 12, 2025 Cocoa Press Operator Relationship Specialty Start Date End Date Griselda Hastings DO PCP - [facility] 02/13/23 Cocoa Press Operator Relationship Specialty Start Date End Date Griselda Hastings DO PCP - [facility] 02/13/23 Team Status: Active Member Role [...] February 19, 2025 End: February 19, 2025 Cocoa Press Operator Relationship Specialty Start Date End Date Griselda Hastings DO PCP - [facility] 02/13/23 Team Status: Inactive Member Role [...] (New Bag - Provider: Shelly Mullins [facility])1630 (Stopped - Provider: [place] [facility])1631 (Continued from OR - Provider: Goyo Agarwal [...] BE BASED ON THE PRIMARY CLINICAL RECORDS. [employer] [facility]. provides no warranty or guarantee of the accuracy or completeness of information in this document.
== END 2025-03-12 11:54 | disposition home or self-care (01) ==
LOC: RAD 12:00
PROVIDERS: PCP Family Medicine; Visit Provider Nurse Practitioner
DX: M25.551 Pain in right hip (principal); M46.1 Sacroiliitis, not elsewhere classified
CPT/HCPCS: 72202; 73502

== ENCOUNTER 2025-03-30 08:28 | Day surgery (SDC) | payer MEDICARE, OTHER, SELFPAY ==
--- OUTSIDE RECORDS SUMMARY | 2025-03-18 11:30 | XMS_ITS | Encounter Summary ---
Author Organization [facility] Address [address] [place] [address] Care Team Providers Care Gluer Name Role Phone Jax Hastings Neisha JOSÉ Primary Care Provider [phone] Encounter Details Date Type Department Care Team (Latest Contact Info) Description 03/18/2025 11:30 AM EDT Clinical Support [facility] [address] [address] Oziel Cadena MD 5319 [facility] [address] [place] [phone] Other nerve root and plexus disorders (Primary Dx); Acute pain of left shoulder; Acute pain of right shoulder Social History Tobacco Use Types Packs/Day [...] PM EDT documented as of this encounter Progress Notes * Oziel Cadena MD - 03/18/2025 11:30 AM EDT Images from the original note were not included. Subjective Jovanikal Kong is a 64 y.o. male who's chief complaint is pain in his left brachial and left anteriorshoulder. History of Present Illness The patient presents for evaluation of left shoulder pain. He reports that his left shoulder pain is severe enough to disrupt his sleep. He has not made any changes to his medication regimen. He has resumed taking Lyrica 50 mg, which he typically takes around 9 or 10 PM. However, he experiences a sensation similar to a hangover upon waking up in the morning. MEDICATIONS CURRENT MEDS: Lyrica 50 mg Oral Twice daily Review of Systems Const: Denies appetite change, [...] findings, which shall supersede the foregoing. Objective There were no vitals taken for this visit. Physical Exam GENERAL EXAMINATION Appearance: in no acute distress, well developed, well nourished. Head: normocephalic, atraumatic. Eyes: pupils equal, round, reactive to light and accommodation. Ears: normal. Mouth: mucosa moist. Throat: clear. Neck: neck supple, full range of motion, no cervical lymphadenopathy. Skin: no suspicious lesions, warm and dry. Heart: no murmurs, regular rate and rhythm, S1, S2 normal. Lungs: clear to auscultation bilaterally. Abdomen: normal, bowel sounds present, soft, nontender, nondistended. Extremities: no clubbing, cyanosis, or edema. NEUROLOGICAL EXAMINATION Mental Status: The patient is alert and oriented to person, place, and time. Except as noted, thought content, form, and comprehension was normal. Phonation, articulation, resonance, and prosody are normal. Cranial Nerves: Pupils were 4.0 millimeters, equal, round, and reactive to light and accommodation,both directly and consensually. Visual mcgrath were full by confrontation. There was no ptosis; extra-ocular movements were full; and there was no nystagmus. Funduscopic exam is normal. Masseters are of normal strength. Facial movement is normal. Hearing is grossly intact. There is no dysarthria. The gag reflex is equal bilaterally. Sternocleidomastoids and trapezii are of normal strength. The tongue protrudes in the midline. Motor: Muscle testing was performed in all four extremities, including at least ethylene compressor operator, finger abductors, biceps, triceps, deltoid, toe flexors and extensors, tibialis anterior, triceps surae, quadriceps femoris, biceps femoris, and iliopsoases. Tone is normal. Muscle bulk is normal. Fasciculations are not seen . Pronator drift was not evident. Sensory: Sensation to touch, temperature, and vibration was normal in the arms, legs and face. Romberg is negative. Reflexes: Biceps, triceps, brachioradialis are 2/4 bilaterally. Patellar and Achilles reflexes are 2/4 bilaterally. Plantar responses were flexor bilaterally. Coordination: Dysmetria and dysdiadochokinesia are absent. Tremor is absent; dystonia is absent; chorea is absent. Gait And Station: Station and gait are normal. Apraxia and spasticity are not evident. Arm swing isnormal. Toe, heel, and tandem walking are performed without difficulty. Musculoskeletal: Trigger-point tenderness was absent. There is no spasm of the trapezii or paraspinals. Results Brachial Plexus injection After explaining the [...] dressing was applied on the injection site. TheProcedure was done by Dr. Oziel Cadena. Anterior Shoulder injection After explaining the risks, complications, and benefits of the procedure, the patient was seated inthe chair. Allergies were reviewed, the consent was signed. After palpating the left humeral head, distal clavicle, and coracoid process for the most tender area in the bursa, the area was marked forthe injections site. Using sterile technique and surface anesthetic; a 25 gauge 1 1/2 spinal needleis inserted medial to the head of humerus, lateral to the coracoid process by 1cm and directed posteriorly at a slight superior and lateral angle. The patient received an injection of 0.5 cc of 0.50% Sensorcaine and 0.5 cc of Dexamethasone 4mg in a fan-like distribution. The needle was removed. The patient tolerated the procedure well. A Band-Aid dressing was applied on the injection site. The Procedure was done by Dr. Oziel Cadena. This note was scribed by Jocelyn Aragno(R) acting under the direction of Oziel Cadena MD. Thecontent has been reviewed and confirmed for accuracy by Oziel Cadena MD Assessment & Plan 1. Left shoulder pain and left brachial injections. He reports that the pain in his left shoulder wakes him up at night. He is currently on Lyrica 50 mg but experiences grogginess in the morning when taking it at night. He is advised to take Lyrica inthe morning to avoid feeling hungover or groggy. documented in this encounter Plan of Treatment Upcoming Encounters Date Type Department Care Team (Late st Contact Info) Description 04/30/2025 2:00 PM EST Clinical Support [facility] [address] [facility] [address] [place] [address] Oziel Cadena MD 53[address] [facility] [address] [place] [phone] 01/08/2026 8:30 AM EDT Office Visit [facility] [address] [facility] [address] [place] [address] Anahi Franco PA [address] [facility] [address] [place] [address] documented as of this encounter Visit Diagnoses Diagnosis Other nerve root and plexus disorders- Primary Acute pain of left shoulder Acute pain of right shoulder documented in this encounter Administered Medications Inactive Administered Medications - up to 3 most recent administrations Medication Order MAR Action Action Date Dose Rate Site bupivacaine (Marcaine) 0.5 % injection 5 mg 5 mg, Injection, Once, On Sun03/24/25 at 1415, For 1 doseIndications:Other nerve root and plexus disorders,Acute pain of left shoulder,Acute pain of right shoulder Given 03/18/2025 2:01 PM EDT 5 mg bupivacaine (Marcaine) 0.5 % injection 5 mg 5 mg, Injection, Once, On Sun03/24/25 at 1415, For 1 doseIndications:Other nerve root and plexus disorders,Acute pain of left shoulder,Acute pain of right shoulder Given 03/18/2025 11:45 AM EDT 5 mg dexAMETHasone sod phos (Decadron) injection 4 mg 4 mg (1 mL), Injection, Once, On Sun03/24/25 at 1415, For 1 doseIndications:Other nerve root and plexus disorders,Acute pain of left shoulder,Acute pain of right shoulder Given 03/18/2025 11:45 AM EDT 4 mg documented in this encounter Care Teams Gluer Relationship Specialty Start Date End Date Jax Hastings DO PCP - General Family Medicine 02/13/23 documented as of this encounter
--- OUTSIDE RECORDS SUMMARY | 2025-03-30 08:32 | XMS_ITS | Encounter Summary ---
Author Organization [facility] Address [address] [place] [address] Care Team Providers Care Hr Assistant Name Role Phone Jax Hastings Primary Care Provider [phone] Encounter Details Date Type Department Care Team (Late st Contact Info) Description 12/11/2023 Orders Only [facility] [phone], [place] [phone] Amber Mi MA Social History Tobacco Use [...] [facility] [address] [place] [address] Oziel Cadena MD [address] [place] [address] 01/08/2026 8:30 AM EDT Office Visit [facility] [address] [place] [address] Anahi Franco PA [address] [place] [address] documented as of this encounter Visit Diagnoses Not on filedocumented in this encounter Care Teams Hr Assistant Relationship Specialty Start Date End Date Jax Hastings DO PCP - General Family Medicine 02/13/23 documented as of this encounter
--- OUTSIDE RECORDS SUMMARY | 2025-03-30 08:32 | XMS_ITS | Clinical Summary ---
Author Organization [facility] Address [address] [place] [address] Phone Care Team Providers Care Typesetter Perforator Operator Name Role Phone DarlingJax Neisha JOSÉ Primary Care Provider [phone] Helder Saleem MD Unavailable René Narayanan PA-C Unavailable [phone] Allergies Active Allergy Reactions Criticality Noted [...] Date Type Department Care Team Description 12/30/2024 [facility] [address] [facility] [address] [place] [address] Asya Ashley MA from Last 3 Months Family History Medical History Relation Name Comments Throat cancer Father bladder cancer Father Heart disease Mother Relation Name Status Comments Father Mother Social History Tobacco Use Types Packs/Day Years Used Date Smoking Tobacco: Every Day Cigarettes 0.5 51.8 Started: 1973 Passive Smoke Exposure: Never Smokeless [...] any time in the past 12 m [facility], were you homeless or living in [...] Description 09/25/2025 9:00 AM EDT Office Visit [facility] [address] [facility] [address] [place] [address] Camille Harris MD [address] [place] [address] Health Maintenance Due Date Last Done Comments [...] Harris MD Medical Devices Implanted Type Area Data Sciences Director Device Identifier Shelf Expiration Date Model / Serial / Lot Allograft, Triad Lordotic 6 X 11 X 14 - [id number] - [id number] Implanted:Qt y: 1 on 04/09/2024 by Rojas Edwards MD at [facility] Spinal Hardware N/A: [employer] 03/14/2028 [id number] / [id number] / Allograft, Triad Lordotic 6 X 11 X 14 - [id number] - [id number] Implanted:Qt y: 1 on 04/09/2024 by Rojas Edwards MD at [facility] Spinal Hardware N/A: [employer] 04/29/2028 [id number] / [id number] / Plate, Acp, 1.6v, 2 Level, 34mm - [id number] Implanted:Qt y: 1 on 04/09/2024 by Rojas Edwards MD at [facility] Spinal Hardware N/A: [employer] [id number] / / Screw, Acp, Self Drill, 3.5 X 17mm, Variable - [id number] Implanted:Qt y: 2 on 04/09/2024 by Rojas Edwards MD at [facility] Spinal Hardware N/A: [employer] [id number] / / 3.5 X 19mm Screw Implanted:Qt y: 4 on 04/09/2024 by Rojas Edwards MD at [facility] N/A: [employer] [id number] / / Description:per bill only brent r [...] LAB CHEMISTRY METHOD 04/10/2024 10:32 AM EDT [facility] Sodium 138 136 - 145 mmol/L LAB CHEMISTRY METHOD 04/10/2024 10:32 AM EDT [facility] Potassium 4.5 3.5 - 5.3 mmol/L LAB CHEMISTRY METHOD 04/10/2024 10:32 AM EDT [facility] Chloride 103 98 - 107 mmol/L LAB CHEMISTRY METHOD 04/10/2024 10:32 AM EDT [facility] Bicarbonate 26 21 - 32 mmol/L LAB CHEMISTRY METHOD 04/10/2024 10:32 AM EDT [facility] Anion Gap 14 10 - 20 mmol/L LAB CHEMISTRY METHOD 04/10/2024 10:32 AM EDT [facility] Urea Nitrogen 14 6 - 23 mg/dL LAB CHEMISTRY METHOD 04/10/2024 10:32 AM EDT [facility] Creatinine 0.86 0.50 - 1.30 mg/dL LAB CHEMISTRY METHOD 04/10/2024 10:32 AM EDT [facility] eGFR >90 >60 mL/min/1. 73m*2 LAB CHEMISTRY METHOD 04/10/2024 10:32 AM EDT [facility] Comment: Calculations of estimated GFR are performed using the 2020 CKD-EPI Study Refit equation without the race variable for the IDMS-Traceable creatinine methods. https://jasn.asnjournals.org/content/early//ASN.5387128415 Calcium 9.0 8.6 - 10.6 mg/dL LAB CHEMISTRY METHOD 04/10/2024 10:32 AM EDT [facility] Blood Venous blood specimen / Unknown Venipuncture / Unknown 04/10/2024 9:19 AM EDT 04/10/2024 10:03 AM EDT us Camille Harris MD LAB BLOOD ORDERABLES Final Resul t [facility] [id number] [place], [place] [id number] * XR DEXA bone density (02/13/2024 10:50 [...] Ruddy Lopez 12/29/2024 8:09 AM Dictation workstation: [id number] Narrative [facility] - 12/29/2024 8:09 AM EDT Interpreted By: Ruddy Lopez, STUDY: DEXA BONE DENSITY02/13/2024 10:50 am INDICATION: Signs/Symptoms:r/o osteoporosis, NEED AXIAL SKELETON IMAGES.. The patient is a 63 y/o year old M. ,M54.12 Radiculopathy, cervical region COMPARISON: None. ACCESSION NUMBER(S): [id number] ORDERING CLINICIAN: CAMILLE HARRIS TECHNIQUE: DEXA BONE [...] Radiculopathy, cervical region COMPARISON: None. ACCESSION NUMBER(S): [id number] ORDERING CLINICIAN: CAMILLE HARRIS TECHNIQUE: DEXA BONE [...] Ruddy Lopez 12/29/2024 8:09 AM Dictation workstation: [id number] us Camille Harris MD IMG DXA PROCEDURES Final Result [facility] from Last 3 Months or Most Recently Relevant to Health Maintenance Additional Health Concerns Active Problems Noted Date Diagnosed Date Patient has spine surgery 01/09/2024 Insurance [facility] MEDICARE PART A AND B [facility] MEDICARE PART A AND B Advance Directives For more information, please contact: [phone] (Available ) Documents on File Type Date Recorded 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
--- OUTSIDE RECORDS SUMMARY | 2025-03-30 08:32 | XMS_ITS | Clinical Summary ---
Author Organization [facility] Address [address] [place] [address] Care Team Providers Care Cafe Operator Name Role Phone Jax Hastings DO Primary Care Provider [phone] Allergies Active Allergy Reactions Criticality Noted Date [...] 1 MG tablet 4 Active HYDROcodone-vanda taminophen ([place]) 5-325 MG tablet 4 Active terbinafine (LamISIL [...] 18 pills 18 tablet 1 5 Active Hospital, Clinic, or Other Facility Administered Medication Ordered Dose Route Frequency Start Date End Date Status dexAMETHasone sod phos (Decadron) injection 4 mgIndications:Other nerve root and plexus disorders,Acute pain of left shoulder,Acute pain of right shoulder 4 mg IJ Once 03/24/2025 03/18/2025 Ended bupivacaine (Marcaine) 0.5 % injection 5 mgIndications:Other nerve root and plexus disorders,Acute pain of left shoulder,Acute pain of right shoulder 5 mg IJ Once 03/24/2025 03/18/2025 Ended bupivacaine (Marcaine) 0.5 % injection 5 mgIndications:Other nerve root and plexus disorders,Acute pain of left shoulder,Acute pain of right shoulder 5 mg IJ Once 03/24/2025 03/18/2025 Ended Active Problems Problem Noted Date Diagnosed [...] Encounters Date Type Department Care Team Description 03/24/2025 Telephone [facility] [address] [facility] [address] [place] [address] Ary Lugo, RT. R 03/24/2025 Telephone [facility] [address] [facility] [address] [place] [address] Ary Lugo, RT. R 03/18/2025 11:30 AM EDT Clinical Support [facility] [address] [facility] [address] [place] [address] Oziel Cadena MD Other nerve root and plexus disorders (Primary Dx); Acute pain of left shoulder; Acute pain of right shoulder 03/18/2025 Bamboo flowsheet [facility] [address] [place] [address] Oziel Cadena MD 03/18/2025 Travel 03/17/2025 Travel 02/04/2025 2:30 PM EDT [facility] [address] [facility] [address] [place] [address] Oziel Cadena MD Acute pain of right shoulder (Primary Dx); Nerve root and plexus disorder, unspecified; Acute pain of left shoulder 02/04/2025 Bamboo flowsheet [facility] [address] [place] [address] Oziel Cadena MD 02/04/2025 Travel 01/28/2025 Travel 01/27/2025 Telephone [facility] [address] [facility] [address] [place] [address] Mayte Morrison MA 01/08/2025 10:20 AM EDT Office Visit [facility] [address] [facility] [address] [place] [address] Anahi Franco PA Melanocytic nevus of trunk (Primary Dx); Seborrheic keratosis; Inflamed seborrheic keratosis; Actinic keratosis; Capillary angioma; History of SCC (squamous cell carcinoma) of skin 01/08/2025 Bamboo flowsheet [facility] [place] [facility] [address] [place] [address] Anahi Franco PA 01/08/2025 Travel 01/07/2025 Travel 12/30/2024 Telephone [facility] [address] [place] [address] Ary Lugo RTMaria R Driver 12/29/2024 1:30 PM EDT Ancillary Procedure [facility] [address] [place] [address] Arthrodesis status 12/29/2024 Refill [facility] [address] [place] [address] Amber Mi MA Cervical stenosis of spinal canal (Primary Dx) 12/29/2024 Travel from Last 3 Months Immunizations Immunization [...] Neurology [address] [place] [address] Oziel Cadena MD [address] [facility] [address] [address] 01/08/2026 8:30 AM EDT Office Visit [facility] [address] [place] [address] Anahi Franco PA [address] [place] [address] Health Maintenance Due Date Last [...] Cryotherapy, skin lesion (01/08/2025 10:27 AM EDT) us Anahi SAAVEDRA DERM PROCEDURE ORDERABLES Geetha l Result * Cryotherapy, skin lesion (01/08/2025 10:23 AM EDT) us Anahi SAAVEDRA DERM PROCEDURE ORDERABLES Geetha l [...] Final Result from Last 3 Months Insurance [facility] MEDICARE Care Teams Cafe Operator Relationship Specialty Start Date End Date Jax Hastings DO PCP - General Family Medicine 02/13/23
--- OUTSIDE RECORDS SUMMARY | 2025-03-30 08:32 | XMS_ITS | Encounter Summary ---
Author Organization [facility] Address [address] [place] [address] Phone Care Team Providers Care Top Loader Name Role Phone Jax Hastings DO Primary Care Provider [phone] Helder Saleem MD Unavailable [phone] René Narayanan PA-C Unavailable [phone] Encounter Details Date Type Department Care Team (Late st Contact Info) Description 11/07/2024 Scanned Document [facility] [address] [place] [address] [place] [address] [place], [place] [phone] Social History Tobacco Use Types Packs/Day Years [...] in the past 12 m [facility], were you homeless or living in a correction (including now)? No 04/09/2024 Sex and Gender [...] Description 09/25/2025 9:00 AM EDT Office Visit [facility] [address] [facility] [address] [place] [address] Doretha Harris MD [address] [place] [address] documented as of this encounter Goals Goal [...] documented as of this encounter Care Teams Top Loader Relationship Specialty Start Date End Date Jxa Hastings DO [address] [place] [address] PCP - General 01/03/19 [place] [address] [place] [address] Consulting Physician Hematology and Oncology 10/05/23 René Narayanan PA-C [address] [place] [address] Physician Construction Equipment Mechanic Helper Neurosurgery 12/12/23 documented as of this encounter
--- OUTSIDE RECORDS SUMMARY | 2025-03-30 08:33 | XMS_ITS | Encounter Summary ---
Author Organization [facility] Address [address] [place] [address] Phone Care Team Providers Care Pantograph I Engraver Name Role Phone Jax Hastings DO Primary Care Provider [phone] Helder Saleem MD Unavailable [phone] René Narayanan PA-C Unavailable [phone] Encounter Details Date Type Department Care Team (Late st Contact Info) Description 04/10/2024 Scanned Document [facility] [address] [place] [address] Doretha Harris MD [address] [place], [place] [phone] Social History Tobacco Use Types Packs/Day Years [...] any time in the past 12 m [facility], were you homeless or living [...] 04/10/2024 7:00 AM ED T Whitney Kaufman clinical pharmacy technician Aid 0 04/10/2024 7:00 AM EDT Whitney [...] Description 09/25/2025 9:00 AM EDT Office Visit [facility] [address] [place], [place] [address] [place] [address] Doretha Harris MD [address] [place] [address] documented as of this encounter Goals Goal [...] documented as of this encounter Care Teams Pantograph I Engraver Relationship Specialty Start Date End Date Jax Hastings DO [address] [place] [address] PCP - General 01/03/19 [place] [address] [place] [address] Consulting Physician Hematology and Oncology 10/05/23 René Narayanan PA-C [address] [place] [address] Physician Bisque Tile Burner Neurosurgery 12/12/23 documented as of this encounter
--- OUTSIDE RECORDS SUMMARY | 2025-03-30 08:33 | XMS_ITS | Encounter Summary ---
Author Organization [facility] Address [address] [place] [address] Care Team Providers Care Behavioral Modification Assistant Name Role Phone Jax Hastings Primary Care Provider [phone] Encounter Details Date Type Department Care Team (Latest Contact Info) Description 03/17/2025 Travel Social History Tobacco Use Types Packs/Day [...] Neurology [address] [place] [address] Oziel Cadena MD [address] [facility] [address] [place] [address] [phone] 01/08/2026 8:30 AM EDT Office Visit [facility] [address] [place] [address] Anahi Franco PA [address] [place] [address] documented as of this encounter Visit Diagnoses Not on filedocumented in this encounter Care Teams Behavioral Modification Assistant Relationship Specialty Start Date End Date Jax Hastings DO PCP - General Family Medicine 02/13/23 documented as of this encounter
--- OUTSIDE RECORDS SUMMARY | 2025-03-30 08:33 | XMS_ITS | Encounter Summary ---
Author Organization [facility] Address [address] [facility] [place] [address] Care Team Providers Care Tuber Machine Cutter Name Role Phone AndreaJax meneses Neisha JOSÉ Primary Care Provider [phone] Encounter Details Date Type Department Care Team (Late st Contact Info) Description 03/18/2025 Bamboo flowsheet [facility] [address] [facility] [place] [address] Oziel Cadena MD [address] [place] [address] [id number] Social History Tobacco Use Types Packs/Day Years [...] Description 04/30/2025 2:00 PM EST Clinical Support [facility] [place] [facility] [address] [place] [address] [place] [address] Oziel Cadena MD [address] [place] [phone] 01/08/2026 8:30 AM EDT Office Visit [facility] [address] [place] [address] Anahi Franco PA [address] [place] [address] documented as of this encounter Visit Diagnoses Not on filedocumented in this encounter Care Teams Tuber Machine Cutter Relationship Specialty Start Date End Date Jax Hastings DO PCP - General Family Medicine 02/13/23 documented as of this encounter
--- OUTSIDE RECORDS SUMMARY | 2025-03-30 08:33 | XMS_ITS | Encounter Summary ---
Author Organization [facility] Address [address] [place] [address] Phone Care Team Providers Care Dairy Powder Mixer Operator Name Role Phone Jax Hastings DO Primary Care Provider [phone] Helder Saleem MD Unavailable [phone] René Narayanan PA-C Unavailable [phone] Encounter Details Date Type Department Care Team (Late st Contact Info) Description 01/18/2023 Patient Risk Score ACO Care Management [address] [place] [address] Social History Tobacco Use Types [...] 9:00 AM EDT Office Visit [facility] [address] [facility] [address] [place] [address] Doretha Harris MD [address] [place], [place] [phone] documented as of this encounter Visit Diagnoses Not on filedocumented in this encounter Care Teams Dairy Powder Mixer Operator Relationship Specialty Start Date End Date Jax Hastings DO [address] [place] [address] PCP - General 01/03/19 [place] [address] [place] [address] Consulting Physician Hematology and Oncology 10/05/23 René Narayanan PA-C [address] [place] [address] Physician Press Assistant And Feeder Neurosurgery 12/12/23 documented as of this encounter
--- OUTSIDE RECORDS SUMMARY | 2025-03-30 08:33 | XMS_ITS | Encounter Summary ---
Author Organization [facility] Address [address] [place] [address] Phone Care Team Providers Care Unscrambler Name Role Phone Jax Hastings DO Primary Care Provider [phone] Jax Hastings DO Unavailable Jax Hastings DO Unavailable Helder Saleem MD Unavailable [phone] René Narayanan PA-C Unavailable [phone] Encounter Details Date Type Department Care Team (Late st Contact Info) Description 02/13/2019 Orders Only [facility] [address] [place] [address] Conversion, Onbase Social History Tobacco Use Types [...] Description 09/25/2025 9:00 AM EDT Office Visit [facility] [address] [facility] [address] [place] [address] Doretha Harris MD [address] [place], [place] [phone] Scheduled Orders Name Type Priority Associated Diagnoses Belén barnes Schedule OUTSIDE LAB SCAN Lab Ordered: 02/13/2019 documented as of this encounter Visit Diagnoses Not on filedocumented in this encounter Care Teams Unscrambler Relationship Specialty Start Date End Date Jax Hastings DO [address] [place] [address] PCP - General 01/03/19 Jax Hastings DO [address] [place], [place] [address] PCP - [facility] PCP 09/16/21 11/15/22 Jax Hastings DO [address] [place], [place] [address] PCP - [facility] PCP 10/16/21 12/15/22 [place] [address] [place] [address] Consulting Physician Hematology and Oncology 10/05/23 René Narayanan PA-C [address] [place] [address] Physician Silica Dry Press Helper Neurosurgery 12/12/23 documented as of this encounter
--- OUTSIDE RECORDS SUMMARY | 2025-03-30 08:33 | XMS_ITS | Encounter Summary ---
Author Organization [facility] Address [address] [place] [address] Care Team Providers Care Cover Mat Machine Operator Name Role Phone Jax Hastings Primary Care Provider [phone] Encounter Details Date Type Department Care Team (Latest Contact Info) Description 03/18/2025 Travel Social History Tobacco Use Types Packs/Day [...] Neurology [address] [place] [address] Oziel Cadena MD [address] [facility] [address] [place] [address] [phone] 01/08/2026 8:30 AM EDT Office Visit [facility] [address] [place] [address] Anahi Franco PA [address] [place] [address] documented as of this encounter Visit Diagnoses Not on filedocumented in this encounter Care Teams Cover Mat Machine Operator Relationship Specialty Start Date End Date Jax Hastings DO PCP - General Family Medicine 02/13/23 documented as of this encounter
--- OUTSIDE RECORDS SUMMARY | 2025-03-30 08:33 | XMS_ITS | Encounter Summary ---
Author Organization [facility] Address [address] [place] [address] Phone Care Team Providers Care Chemical Process Project Engineer Name Role Phone Jax Hastings DO Primary Care Provider [phone] Helder Saleem MD Unavailable [phone] René Narayanan PA-C Unavailable [phone] Encounter Details Date Type Department Care Team (Late st Contact Info) Description 10/10/2024 Scanned Document [facility] [address] [facility] [address] [place] [address] Doretha Harris MD [address] [place], [place] [phone] Social History Tobacco Use Types Packs/Day Years [...] time in the past 12 m [facility], were you homeless or living in a senior care (including now)? No 04/09/2024 Sex and Gender [...] Description 09/25/2025 9:00 AM EDT Office Visit [facility] [address] [facility] [address] [place] [address] Doretha Harris MD [address] [place] [address] documented as of this encounter Goals Goal [...] documented as of this encounter Care Teams Chemical Process Project Engineer Relationship Specialty Start Date End Date Jax Hastings DO [address] [place] [address] PCP - General 01/03/19 [place] [address] [place] [address] Consulting Physician Hematology and Oncology 10/05/23 René Narayanan PA-C [address] [place] [address] Physician Stoneworking Sander Neurosurgery 12/12/23 documented as of this encounter
--- OUTSIDE RECORDS SUMMARY | 2025-03-30 08:33 | XMS_ITS | Encounter Summary ---
Author Organization [facility] Address [address] [place] [address] Care Team Providers Care Voice Intercept Technician Name Role Phone Jax Hastings DO Primary Care Provider [phone] Reason for Referral * Imaging (Routine) - Closed Specialty Diagnoses / Procedures Referred By Roverto t Referred To Contact [facility] Diagnoses Neoplasm of brain (HCC) Procedures MR brain w and wo contrast routine Oziel Cadena MD [address] [facility] [address] [address] Phone: tel: fax: [facility] [address] [place] [address] Phone: tel: fax: Referral ID Status Reason Start Date Expiration Date Visits Re quested Visits Authorized [id number] Closed 03/25/2025 09/21/2025 1 0 Encounter Details Date Type Department Care Team (Late st Contact Info) Description 03/24/2025 Telephone [facility] [address] [address] Ary Lugo, RT. R Social [...] as of this encounter Miscellaneous Notes * Addendum Note - Jovani Mi MA - 03/25/2025 8:54 AM EDTAddended by: JOVANI MI on: 03/25/2025 08:54 AM Modules accepted: Orders * Telephone Encounter - Jovani Mi MA - 03/25/2025 8:52 AM EDT Pt stopped in office and said wants it at [place] * Telephone Encounter - Jovani Mi MA - 03/25/2025 8:26 AM EDT I called patient and left a message to see where he wants to go. * Telephone Encounter - RT. Neisha Arango - 03/24/2025 2:13 PM EDT Patient to have MRI of brain ( brain stem?) with and w/o contrast documented in this encounter Plan of Treatment Upcoming Encounters Date Type Department Care Team (Late st Contact Info) Description 04/30/2025 2:00 PM EST Clinical Support [facility] [address] [place] [address] Oziel Cadena MD [address] [facility] [address] [place] [address] [phone] 01/08/2026 8:30 AM EDT Office Visit [facility] [address] [place] [address] Anahi Franco PA [address] [place] [address] Scheduled Orders Name Type Priority Associated Diagnoses Orde r Schedule MR brain w and wo contrast routine Imaging Routine Neoplasm of brain (HCC) Expected: 03/25/2025, Expires: 03/25/2026 documented as of this encounter Visit Diagnoses Diagnosis Neoplasm of brain (HCC)- Primary Neoplasm of unspecified nature of brain documented in this encounter Care Teams Voice Intercept Technician Relationship Specialty Start Date End Date Jax Hastings DO PCP - General Family Medicine 02/13/23 documented as of this encounter
--- OUTSIDE RECORDS SUMMARY | 2025-03-30 08:33 | XMS_ITS | Encounter Summary ---
Author Organization [facility] Address [address] [place] [address] Care Team Providers Care Retail Assistant Name Role Phone Jax Hastings DO Primary Care Provider [phone] Reason for Referral * Injection (Routine) - Authorized Specialty Diagnoses / Procedures Referred By Contac t Referred To Contact Neurology Diagnoses Other nerve root and plexus disorders Acute pain of right shoulder Acute pain of left shoulder Procedures CO OFFICE/OUTPATIENT [facility] 60 MINUTES Oziel Cadena MD [address] [facility] [address] [place] [address] Phone: tel: fax: Oziel Cadena MD [address] [facility] [address] [place] [address] Phone: tel: fax: Referral ID Status Reason Start Date Expiration Date Visits Requested Visits Authorized [id number] Authorized Perform Procedure 03/18/2025 09/20/2025 6 6 Encounter Details Date Type Department Care Team (Late st Contact Info) Description 03/24/2025 Telephone [facility] [address] [address] Ary Lugo, RT. R Social [...] encounter Miscellaneous Notes * Telephone Encounter - RT. Conchita R - 03/24/2025 1:47 PM EDT [id number], [id number] documented in this encounter Plan of Treatment Upcoming Encounters Date Type Department Care Team (Late st Contact Info) Description 04/30/2025 2:00 PM EST Clinical Support [facility] [address] [place] [address] Oziel Cadena MD 5339 [facility] [address] [address] 01/08/2026 8:30 AM EDT Office Visit [facility] [address] [place] [address] Anahi Franco PA [address] [place] [address] Scheduled Referrals Name Type Priority Associated Diagnoses Order Schedule Ambulatory referral to Neurology Outpatient Referral Routine Other nerve root and plexus disorders Acute pain of right shoulder Acute pain of left shoulder Expected: 03/24/2025 (Approximate), Expires: 09/22/2025 documented as of this encounter Visit Diagnoses Diagnosis Other nerve root and plexus disorders- Primary Acute pain of right shoulder Acute pain of left shoulder documented in this encounter Care Teams Retail Assistant Relationship Specialty Start Date End Date Jax Hastings DO PCP - General Family Medicine 02/13/23 documented as of this encounter
--- OUTSIDE RECORDS SUMMARY | 2025-03-30 08:33 | XMS_ITS | Encounter Summary ---
Author Organization [facility] Address [address] [place] [address] Phone Care Team Providers Care Spud Sorter Name Role Phone Jax Hastings DO Primary Care Provider [phone] Helder Saleem MD Unavailable [phone] René Narayanan PA-C Unavailable [phone] Encounter Details Date Type Department Care Team (Late st Contact Info) Description 02/18/2023 Patient Risk Score ACO Care Management [address] [place] [address] Social History Tobacco Use Types [...] Description 09/25/2025 9:00 AM EDT Office Visit [facility] [address] [facility] [address] [place] [address] Doretha Harris MD 7255 [place], [place] [phone] documented as of this encounter Visit Diagnoses Not on filedocumented in this encounter Care Teams Spud Sorter Relationship Specialty Start Date End Date Jax Hastings DO [address] [place] [address] PCP - General 01/03/19 [place] [address] [place] [address] Consulting Physician Hematology and Oncology 10/05/23 René Narayanan PA-C [address] [place] [address] Physician Sql Database Administrator Neurosurgery 12/12/23 documented as of this encounter
--- OUTSIDE RECORDS SUMMARY | 2025-03-30 08:33 | XMS_ITS | Encounter Summary ---
Author Organization [facility] Address [address] [place] [address] Phone Care Team Providers Care Junior Recruiter Name Role Phone Jax Hastings DO Primary Care Provider [phone] Helder Saleem MD Unavailable [phone] René Narayanan PA-C Unavailable [phone] Encounter Details Date Type Department Care Team (Late st Contact Info) Description 12/18/2022 Patient Risk Score ACO Care Management [address] [place] [address] Social History Tobacco Use Types [...] Description 09/25/2025 9:00 AM EDT Office Visit [facility] [address] [facility] [address] [place] [address] Doretha Harris MD 7255 [place], [place] [phone] documented as of this encounter Visit Diagnoses Not on filedocumented in this encounter Care Teams Junior Recruiter Relationship Specialty Start Date End Date Jax Hastings DO [address] [place] [address] PCP - General 01/03/19 [place] [address] [place] [address] Consulting Physician Hematology and Oncology 10/05/23 René Narayanan PA-C [address] [place] [address] Physician Handle And Vent Machine Operator Neurosurgery 12/12/23 documented as of this encounter
--- OUTSIDE RECORDS SUMMARY | 2025-03-30 08:34 | XMS_ITS | Clinical Summary ---
Author Organization [facility] Address [address] [place] [address] Care Team Providers Care Commercial Baker Helper Name Role Phone Jax Hastings Primary Care Provider [phone] Jax Hastings Unavailable [phone] Oziel Cadena MD Unavailable [phone] Allergies Active Allergy Reactions Criticality Noted [...] is lower risk 5 11/03/2022 Data from: https://www.neighborhoodatlas.medicine.[facility]/. Last address used for calculation [address] 11/03/2022 Sex and Gender Information Value Date Recorded Sex Assigned at Male 09/20/2022 2:46 PM EDT Legal Sex Male 10:55 AM EDT Gender Identity Male 09/20/2022 2:46 PM EDT Sexual Orientation Straight 09/20/2022 2: 46 PM EDT Occupation Industry Job Start Date Job End Date [place] Not on file Not on file Not [...] AM EDT Appointment Radiology Pet CT [address] [place] [address] Ct CN with contrast and lab 11/06/2025 9:00 AM EDT Visit (SP) Office Hematology/Oncology [address] [place] [address] Memo Acevedo MD [address] [place] [address] [place] [address] 1 [address] follow up for ct [...] (2 - Td or Tdap) 03/15/2024 03/15/2014 Covid-19 Vaccine (3 - 2024-2 6 season) 2025 01/21/2021, 12/30/2020 Influenza Vaccine (#1) 2025 Diabetes Screening 04/10/2027 [...] - 8.0 g/dL 10/26/2023 9:39 AM EDT [facility] Albumin 4.3 3.9 - 4.9 g/dL 10/26/2023 9:39 AM EDT [facility] Calcium, Total 9.9 8.5 - 10.2 mg/dL 10/26/2023 9:39 AM EDT [facility] Bilirubin, Total 0.5 0.2 - 1.3 mg/dL 10/26/2023 9:39 AM [facility] Alkaline Phosphatase 75 38 - 113 U/L 10/26/2023 9:39 AM [facility] AST 9(L) 14 - 40 U/L 10/26/2023 9:39 AM [facility] ALT 10 10 - 54 U/L 10/26/2023 9:39 AM [facility] Glucose 89 74 - 99 mg/dL 10/26/2023 9:39 AM [facility] Comment: The [place] Diabetes Association (ADA) provides guidance for cutoff [...] Standards of Medical Care in Diabetes 2016, [employer] Diabetes Association. Diabetes Care. 2016.39(Suppl 1). BUN 16 9 - 24 mg/dL 10/26/2023 9:39 AM [facility] Creatinine 1.01 0.73 - 1.22 mg/dL 10/26/2023 9:39 AM [facility] Sodium 141 136 - 144 mmol/L 10/26/2023 9:39 AM [facility] Potassium 4.0 3.7 - 5.1 mmol/L 10/26/2023 9:39 AM [facility] Chloride 106(H) 97 - 105 mmol/L 10/26/2023 9:39 AM [facility] CO2 27 22 - 30 mmol/L 10/26/2023 9:39 AM [facility] Anion Gap 8(L) 9 - 18 mmol/L 10/26/2023 9:39 AM EDT [facility] Estimated Glomerular Filtration Rate 85 >=60 mL/min/1. 73m 10/26/2023 9:39 AM EDT [facility] Comment:Estimated Glomerular Filtration Rate (eGFR) [...] EDT Memo Acevedo MD LABORATORY Final Result [facility] [address] [place] [address] from Last 3 Months or Most Recently Relevant to Health Maintenance Insurance [facility] CHOICE PLUS MEDICARE Care Teams Commercial Baker Helper Relationship Specialty Start Date End Date Jax Hastings [address] [place] [address] PCP - General Family Medicine 11/20/18 Jax Hastings [address] [place] [address] Referring Family Medicine 11/20/18 Oziel Cadena MD [address] [facility] [address] [phone] Referring Neurology 08/18/22
--- OUTSIDE RECORDS SUMMARY | 2025-03-30 08:34 | XMS_ITS | Encounter Summary ---
Author Organization [facility] Address [address] [place] [address] Phone Care Team Providers Care Junior Estimator Name Role Phone Jax Hastings DO Primary Care Provider [phone] Helder Saleem MD Unavailable [phone] René Narayanan PA-C Unavailable [phone] Encounter Details Date Type Department Care Team (Late st Contact Info) Description 01/11/2024 Scanned Document [facility] [address] [place] [address] Doretha Harris MD [address] [place], [place] [phone] Social History Tobacco Use Types Packs/Day Years [...] 09/25/2025 9:00 AM EDT Office Visit [facility] [address] [facility] [address] [place] [address] Doretha Harris MD [address] [place] [address] documented as of this encounter Goals Goal [...] documented as of this encounter Care Teams Junior Estimator Relationship Specialty Start Date End Date Jax Hastings DO [address] [place] [address] PCP - General 01/03/19 [place] [address] [place] [address] Consulting Physician Hematology and Oncology 10/05/23 René Narayanan PA-C [address] [place] [address] Physician Choirmaster Neurosurgery 12/12/23 documented as of this encounter
--- OUTSIDE RECORDS SUMMARY | 2025-03-30 08:34 | XMS_ITS | Encounter Summary ---
Author Organization [facility] Address [address] [place] [address] Phone Care Team Providers Care Servomechanism Assembler Name Role Phone Jax Hastings DO Primary Care Provider [phone] Helder Saleem MD Unavailable [phone] René Narayanan PA-C Unavailable Encounter Details Date Type Department Care Team (Late st Contact Info) Description 01/09/2024 Scanned Document [facility] [address] [place] [address] Doretha Harris MD [address] [place], [place] [address] Social History Tobacco Use Types Packs/Day Years [...] Office Visit [facility] [address] [facility] [address] [place] [address] Doretha Harris MD 7255 [place] [address] documented as of this encounter Goals Goal [...] documented as of this encounter Care Teams Servomechanism Assembler Relationship Specialty Start Date End Date Jax Hastings DO [address] [place] [address] PCP - General 01/03/19 [place] [address] [place] [address] Consulting Physician Hematology and Oncology 10/05/23 René Narayanan PA-C [address] [place] [address] Physician Operations General Agent Neurosurgery 12/12/23 documented as of this encounter
--- OUTSIDE RECORDS SUMMARY | 2025-03-30 08:34 | XMS_ITS | Encounter Summary ---
Author Organization [facility] Address [address] [place] [address] Phone Care Team Providers Care Parks Worker Name Role Phone Jax Hastings DO Primary Care Provider [phone] Helder Saleem MD Unavailable [phone] René Narayanan PA-C Unavailable [phone] Encounter Details Date Type Department Care Team (Late st Contact Info) Description 01/14/2024 Scanned Document [facility] [address] [place] [address] Doretha Harris MD 7119 [place], [place] [phone] Social History Tobacco Use Types Packs/Day Years [...] Description 09/25/2025 9:00 AM EDT Office Visit [facility] [address] [facility] [address] [place] [address] Doretha Harris MD [address] [place] [address] documented as of this encounter Goals Goal [...] documented as of this encounter Care Teams Parks Worker Relationship Specialty Start Date End Date Jax aHstings DO [address] [place] [address] PCP - General 01/03/19 [place] [address] [place] [address] Consulting Physician Hematology and Oncology 10/05/23 René Narayanan PA-C [address] [place] [address] Physician Sort Worker Neurosurgery 12/12/23 documented as of this encounter
--- OUTSIDE RECORDS SUMMARY | 2025-03-30 08:34 | XMS_ITS | Encounter Summary ---
Author Organization [facility] Address [address] [place] [address] Care Team Providers Care Coffee Grinder Name Role Phone Andreagideon Jax Neisha JOSÉ Primary Care Provider [phone] Encounter Details Date Type Department Care Team (Late Contact Info) Description 03/13/2023 Abstract [facility] [address] [place] [address] Oziel Cadena MD [address], [place] [address] Social History Tobacco Use Types Packs/Day Years [...] Description 04/30/2025 2:00 PM EST Clinical Support [facility] [place] [facility] [address] [facility] [address] [place] [address] Oziel Cadena MD 2385 [facility] [address] [phone] 01/08/2026 8:30 AM EDT Office Visit [facility] [address] [facility] [address] [place] [address] Anahi Franco PA [address] [facility] [address] [place] [address] documented as of this encounter Visit Diagnoses Not on filedocumented in this encounter Care Teams Coffee Grinder Relationship Specialty Start Date End Date Jax Hastings DO PCP - General Family Medicine 02/13/23 documented as of this encounter
--- OUTSIDE RECORDS SUMMARY | 2025-03-30 08:34 | XMS_ITS | Encounter Summary ---
Author Organization [facility] Address [address] [place] [address] Care Team Providers Care Mining Machinery Assembler Name Role Phone AndreaJax meneses Neisha JOSÉ Primary Care Provider [phone] Encounter Details Date Type Department Care Team (Late st Contact Info) Description 02/19/2023 Abstract [facility] [address] [facility] [address] [place] [address] Mary Henderson, NICK [address] [facility] [address] [place] [address] Social History Tobacco Use Types Packs/Day Years [...] Clinical Support [facility] [address] [facility] [address] [place] [address] Oziel Cadena MD [address] [facility] [address] [place] [address] 01/08/2026 8:30 AM EDT Office Visit [facility] [address] [place] [address] Anahi Franco PA [address] [place] [address] documented as of this encounter Visit Diagnoses Not on filedocumented in this encounter Care Teams Mining Machinery Assembler Relationship Specialty Start Date End Date Jax Hastings DO PCP - General Family Medicine 02/13/23 documented as of this encounter
--- OUTSIDE RECORDS SUMMARY | 2025-03-30 08:34 | XMS_ITS | Encounter Summary ---
Author Organization [facility] Address [address] [place] [address] Care Team Providers Care Steam Fitter Helper Name Role Phone Jax Hastings Primary Care Provider [phone] Encounter Details Date Type Department Care Team (Late Contact Info) Description 05/04/2023 External Result Encounter [facility] External Department Unsolicited Nikole Mota NP [address], [place] [phone] Social History Tobacco Use Types Packs/Day Years [...] Department Care Team (Late Contact Info) Description 04/30/2025 2:00 PM EST Clinical Support [facility] [address] [place] [address] Oziel Cadena MD [address] [place], [place] [address] 01/08/2026 8:30 AM EDT Office Visit [facility] [address] [place] [address] Anahi Franco PA [address] [place] [address] documented as of [...] Alber Goodson M.D.05/04/2023 4:34 PM Dictation Location: [place] [address] Transcribed By: [facility] 05/04/23 1634 Dictated By: Alber Goodson II, MD 05/04/23 1549 Signed By: <Electronically signed by Alber Goodson II, MD in OV> 05/04/23 1634 Narrative 05/07/2023 4:31 PM EST [facility] Main [address] [address] [address] Scan Report Signed Patient: Jovani Kong MR#: [id number] : 1960 Acct:[id number] Age/Sex: 62 / M ADM Date: 05/04/23 Loc: CT Room: Type: [facility] Attending Dr: Nikole Mota APRN, HYPERBARIC TECHNOLOGIST-C Copies to: Nikole Mota APRN, CNP Ordering Provider: Nikole Mota APRN, CNP Date of Service: 05/04/23 CT/CT angio neck: H53.9, I65.23, I65.1, I66.09, I65.29 ([id number]) CT/CT angio head: H53.9, I65.23, I65.1, I66.09, [...] CT/CT angio head Procedure Note Radiology, Radiologist, MD - 05/07/2023 [facility] Main [place] [address] [place] [address] CT Scan Report Signed Patient: Jovani Kong CMR#: [id number] : 1960Acct:[id number] Age/Sex: 62 / MADM Date: 05/04/23 Loc: CT Room:Type: [facility] Attending Dr: Nikole Mota APRN, HYPERBARIC TECHNOLOGIST-C Copies to: Nikole Mota APRN,BEZEL CUTTER Ordering Provider: Nikole Mota APRN,BEZEL CUTTER Date of Service: 05/04/23 CT/CT angio neck: H53.9, I65.23, I65.1, I66.09,I65.29 ([id number]) CT/CT angio head: H53.9, I65.23, I65.1, I66.09, [...] Alber Goodson M.D.05/04/2023 4:34 PM Dictation Location: [place] [address] Transcribed By: [facility] 05/04/23 1634 Dictated By: Alber Goodson II, MD 05/04/23 1549 Signed By: <Electronically signed by Alber Goodson II, MD inOV> 05/04/23 1634 us Nikole Mota HYPERBARIC TECHNOLOGIST IMG CT PROCEDURES Final Result documented in this encounter Visit Diagnoses Not on filedocumented in this encounter Care Teams Steam Fitter Helper Relationship Specialty Start Date End Date Jax Hastings DO PCP - General Family Medicine 02/13/23 documented as of this encounter
--- OUTSIDE RECORDS SUMMARY | 2025-03-30 08:34 | XMS_ITS | Encounter Summary ---
Author Organization [facility] Address [address] [place] [address] Phone Care Team Providers Care Welding Manager Name Role Phone Jax Hastings DO Primary Care Provider [phone] Helder Saleem MD Unavailable [phone] René Narayanan PA-C Unavailable [phone] Encounter Details Date Type Department Care Team (Late st Contact Info) Description 12/12/2023 Scanned Document [facility] [address] [place] [address] René Narayanan PA-C [address] [facility] [address], [facility] [address] [place], [place] [address] Social History Tobacco Use Types Packs/Day Years [...] Description 09/25/2025 9:00 AM EDT Office Visit [facility] [address] [address] Doretha Harris MD 7255 [place] [address] documented as of this encounter Visit Diagnoses Not on filedocumented in this encounter Additional Health Concerns Assessment Noted Time A fall risk assessment has been complete d for the patient 12/12/2023 1:10 PM EDT documented as of this encounter Care Teams Welding Manager Relationship Specialty Start Date End Date Jax Hastings DO [address] [place] [address] PCP - General 01/03/19 [place] [address] [place] [address] Consulting Physician Hematology and Oncology 10/05/23 René Narayanan PA-C [address] [place] [address] Physician Legal Counsel Neurosurgery 12/12/23 documented as of this encounter
--- OUTSIDE RECORDS SUMMARY | 2025-03-30 08:34 | XMS_ITS | Encounter Summary ---
Author Organization [facility] Address [address] [place] [address] Care Team Providers Care Plastics Plater Name Role Phone Jax Hastings DO Primary Care Provider [phone] Encounter Details Date Type Department Care Team (Late st Contact Info) Description 04/03/2023 Abstract [facility] [facility] [address] [place] [address] Nikole Mota, DIRECTOR OF STRATEGIC COMMUNICATIONS [address] [place] [address] Social History Tobacco Use Types Packs/Day Years [...] [address] [facility] [address] [place] [address] Oziel Cadena MD 0389 [facility] [address] [phone] 01/08/2026 8:30 AM EDT Office Visit [facility] [address] [facility] [address] [place] [address] Anahi Franco PA [address] [facility] [address] [place] [address] documented as of this encounter Visit Diagnoses Not on filedocumented in this encounter Care Teams Plastics Plater Relationship Specialty Start Date End Date Jax Hastings DO PCP - General Family Medicine 02/13/23 documented as of this encounter
--- OUTSIDE RECORDS SUMMARY | 2025-03-30 08:34 | XMS_ITS | Encounter Summary ---
Author Organization [facility] Address [address] [place] [address] Care Team Providers Care Enrollment Services Dean Name Role Phone Jax Hastings Primary Care Provider [phone] Jax Hastings Unavailable [phone] Oziel Cadena MD Unavailable [phone] Source Comments In the event this information is protected by the Federal Confidentiality of Alcohol and Drug AbusePatient Records regulations: The Federal rules restrict any use of the information to criminally investigate or prosecute any alcohol or drug abuse patient.[facility] Encounter Details Date Type Department Care Team [...] 10:15 AM EDT Appointment Radiology Pet CT [address] [place] [address] [place] [address] Ct CN with contrast and lab 11/06/2025 9:00 AM EDT Visit (SP) Office Hematology/Oncology [address] [place] [address] [place] [address] Memo Acevedo MD [address] [place] [address] [place] [address] 1 year follow up for ct and lab results documented as of this encounter Visit Diagnoses Not on filedocumented in this encounter Care Teams Enrollment Services Dean Relationship Specialty Start Date End Date Jax Hastings [address] [place] [phone] PCP - General Family Medicine 11/20/18 Jax Hastings [address] [place] [phone] Referring Family Medicine 11/20/18 Oziel Cadena MD 5319 [facility] [address] [address] Referring Neurology 08/18/22 documented as of this encounter
--- OUTSIDE RECORDS SUMMARY | 2025-03-30 08:37 | XMS_ITS | CCD ---
Author Organization [facility] CliniSymd Care Team Providers Care Hand Ii Cutter Name Role Phone Griselda Hastings Primary Care Provider Griselda Hastings Attending Provider Griselda Hastings Unavailable Unavailable Unavailable Griselda Hastings Unavailable Sheng Schneider Unavailable Griselda Hastings Primary Care Provider Griselda Hastings Unavailable DO Griselda Hastings Primary Care Provider MD Oziel Cadena Attending Provider BAILEY Gaytan Emergency Provider [phone] MD Loi Wong Jr Emergency Provider Unavailable Unavailable DO Griselda Hastings Primary Care Provider MD Oziel Cadena Attending Provider BAILEY Gaytan Emergency Provider MD Loi Wong Jr Emergency Provider BAILEY Mota Attending Provider BAILEY Mota Attending Provider DO Griselda Hastings Primary Care Provider MD Oziel Cadena Attending Provider Trish Carney Unavailable Griselda Hastings Primary Care Provider Darling Griselda Wright Unavailable Tammi NORRIS, Oziel Ruiz Unavailable [phone] FLORES CAT Attending Unavailable FLORES CAT Admitting Unavailable KUNS, GRISELDA WRIGHT Primary Care Unavailable Kuns, DO Griselda Primary Care Provider [phone] Kuns, DO Griselda Attending Provider MD Lima Joseph Attending Provider Dr. BRET HDEZ Attending Unavailable PCP, OTHER Primary Care Unavailable PCP, Other Primary Care Physician Kuns, DO Griselda Primary Care Provider BAILEY Gaytan Emergency Provider quentin, DO Rohit Mullins Emergency Provider Darling, DO Camara Attending Provider Lilliam Cason Unavailable Andreas, DO Griselda Primary Care Provider [phone] BAILEY Gaytan Emergency Provider quentin, DO Rohit Mullins Emergency Provider Darling, DO Griselda Attending Provider [phone] MD Lilliam Cason Attending Provider [phone] Ruddy Harvey Unavailable BAILEY Mota Attending Provider [...] Unavailable Kuns, DO Griselda Primary Care Provider [phone] MD Ruddy Harvey Attending Provider Darling DOGriselda R Primary Care Provider Andreas DO, Griselda R Primary Care Provider Stiven NORRIS, Helder Jarrett Unavailable AndreasDO Camara Attending Provider Griselda Hastings Primary Care Provider Oziel Cadena MD Unavailable Andreas DO, Griselda R Primary Care Provider Milks PA-C, Solomon A Unavailable Milks PA-C, Solomon A Unavailable [phone] Darling Griselda JOSÉ R Primary Care Provider Griselda Hastings DO Primary Care Provider Milks PA-C, Solomon A Attending Provider Andreas Griselda JOSÉ Primary Care Provider Milks PA-C, Solomon A Attending Provider [phone] Wes NORRIS, Ruddy Moraes Attending Provider Humberto NORRIS, Daisy Driver Emergency Provider Griselda Hastings DO R Primary Care Provider Griselda Hastings DO Primary Care Provider Manisha Negron APRN Emergency Provider [phone] Andreas DOGriselda Other Provider Manisha Negron APRN Attending Provider Milks PA-C, Solomon Nae Attending Provider Griselda [...] Unavailable ABHYANKAR, RACQUEL Attending Unavailable KUNS, GRISELDA ADRIANA Primary Care Unavailable ABHYANKAR, RACQUEL Referring Unavailable KUNS, GRISELDA ADRIANA Primary Care Unavailable Conchita NORRIS, Nathanael Attending Provider Kuns DO, Griselda Attending Provider HARRIS, XIAOFEI Referring Unavailable KUNS, [...] Care Provider Lilliam Cason MD Attending Provider Danya CERVANTES, Elizabeth Mullins Attending Provider [phone] Conchita NORRIS, Nathanael Other Provider Solomon Montez APRN Attending Provider Kuns DO, Griselda Attending Provider Roxy NORRIS, Sarina Badillo Attending Unavailable Giedraitis , Andrius Vytautscott Attending Unavailable Giedraitis , Andrius Vytautas Attending Unavailable Giedraitis , Andrius Vytautas Attending Unavailable Giedraitis , Andrius Vytautas Attending Unavailable Giedraitis , Andrius Vytautas Attending Unavailable Kuns DO, Griselda Primary Care Provider Solomon Montez APRN Attending Provider Roxy NORRIS, Andri Attending Provider Marker Sofia JOSÉ Attending Provider Kuns DO, Griselda Primary Care Provider [phone] Kuns DO, Griselda Attending Provider Manisha Negron Attending Unavailable Manisha Negron N Admitting Unavailable Kuns, Griselda Primary Care Unavailable Daisy Paul Attending Unavailable Daisy Paul Admitting Unavailable Kuns, Griselda Primary Care Unavailable Manisha Negron Attending Unavailable Saffle, Manisha N Admitting Unavailable Kuns, Griselda Consulting Unavailable Kuns, Griselda Primary Care Unavailable Ruddy Harvey Attending Unavailabl e Ruddy Harvey Admitting Unavailabl e Kuns, Griselda Primary Care Unavailable Kuns, Griselda Primary Care Unavailable Milks, Solomon A Attending Unavailable MilksSolomon Admitting Unavailable Kuns, Griselda Admitting Unavailable Kuns, Griselda Attending Unavailable Kuns, Griselda Primary Care Unavailable Kuns, Griselda Admitting Unavailable Kuns, Griselda Attending Unavailable Kuns, Griselda Primary Care Unavailable Milks Solomon A Attending Unavailable MilksSolomon A Admitting Unavailable Kuns, Griselda Primary Care Unavailable Asaad, Imad Admitting Unavailable Asaad, Imad Attending Unavailable Kuns, Griselda Primary Care Unavailable OZIEL CADENA Attending Unavailable OZIEL CADENA Attending Unavailable OZIEL CADENA Attending Unavailable OZIEL CADENA Attending Unavailable DORETHA HARRIS Unavailable ANAHI FRANCO Attending Unavailable OZIEL CADENA Attending Unavailable OZIEL CADENA Attending Unavailable OZIEL CADENA Attending Unavailable OZIEL CADENA Attending Unavailable DEBRA FIGUEROA Attending Unavailable DEBRA FIGUEROA Referring Unavailable Unavailable Unavailable Unavailable Allergies Allergy Classification Reported Allergen(s) Allergy Type Date of Onset Reaction(s) Facility Cephalosporins (antibiotic) (1 source) Cephalexin Drug Allergy 8 [facility] (20 sources) Cephalexin; Translations: [CEPHALEXIN] Drug Allergy 8 [facility] (20 sources) Cephalexin; Translations: [Keflex] Drug Allergy rash [employer] Other (1 source) Cephalexin; Translations: [Keflex] Drug Allergy [facility] [place] (17 sources) Keflet; Translations: [KEFLET] Propensity to adverse reactions 4 [facility] (3 sources) varenicline; Translations: [varenicline] Drug Allergy 5 [facility] (1 source) ALLERGIES NOT ON FILE; Translations: [ALLERGIES NOT ON FILE] Propensity to adverse reactions (disorder) [facility] Repository NEGATED: Highlighted row has been ruled out! (1 source) natural latex rubber; Translations: [LATEX, NATURAL RUBBER] Drug allergy (disorder) [facility] [place] NEGATED: Highlighted row has been ruled out! (1 source) No IV Contrast Allergy.; Translations: [IV Dye, Iodine Containing] Drug allergy (disorder) [facility] [place] Medications Current Medications Medication Drug Class(es) Dates [...] 28, 2024 10:44am Start: 10-10-2023 HYDROcodone-ac etaminophen (Rainbow) 5-325 MG tablet 10/10/2023 Active Start: 09-05-2023 End: 04-01-2024 take 1 tablet by mouth every eight hours as needed Hydrocodone-Acetaminophen 5-325 mg table t Discontinued TAB PO Every 8 hours as needed September 05, 2023 12:00am April 01, 2024 11:01am Start: 06-04-2023 take 1 tablet by myles th once daily as needed for pain HYDROcodone-acetaminophen (Rainbow) 5-325 MG tablet take 1 tablet orally daily NEEDED FOR PAIN MUST LAST 30 DAYS 10/10/2023 Active Start: 12-10-2017 End: 04-29-2018 take 1 tablet by mouth every four hours Hydrocodone-Acetaminophen (Rainbow) 5-325 mg tablet Discontinued 1 TAB PO Q4H December 10, 2017 April 29, 2018 3:12pm End: 04-10-2024 take 1.5 tablets by mouth twice daily as needed for pain HYDROcodone-acetaminophen (Rainbow) 5-325 mg tablet Take 1.5 tablets by [...] tablet (2 sources) gamma-Aminobutyric Acid-ergic Agonist Start: take 1 tablet by mouth three times daily as needed baclofen (Lioresal) 10 MG tablet Take 1 tablet 3 times a day by oral route as needed for 15 days. 0 03/30/2023 Active bisacodyl 5 mg delayed release oral tablet (1 source) Stimulant Laxative Start: take 1 tablet by mouth every twenty-four hours as needed brexpiprazole 1 mg oral tablet (20 sources) Atypical Antipsychotic Start: End: take 0.5 mg by mouth once daily [...] oral tablet (20 sources) Start: 09-01-2022 End: 10-06-2024 mirtazapine [...] at bedtime. Multiple Vitamin (MULTIVITAMIN ADULT PO) (20 sources) take 1 capsule by mouth in [...] November 17, 2024 2:16pm polyethylene glycol 3350 23516 mg powder for oral solution (1 source) [...] 01-Nov-2021 Active take 1 capsule by mo ut once daily at bedtime tiZANidine (Zanaflex) 4 [...] AFTERNOON and 2 at bedtime as directed [id number] 200 actuat albuterol 0.09 mg/actuat metered dose [...] 26, 2023 12:00am May 07, 2023 9:23am [id number] Xdp-Tibz-Smv-Asb-C (9 sources) Osmotic Laxative, Vitamin C Start: 10-10-2024 End: 10-24-2024 [id number] Jgv-Qntj-Szt-Asb-C (Plenvu) 140-9-5.2 gram powder in packet, sequential Discontinued 0 PO .COMPLEX 3 October 10, 2024 12:00am October 24, 2024 11:48am PO Start: 10-10-2024 [id number] Cantrell f-Tmwd-Gqt-Asb-C (Plenvu) 140-9-5.2 gram powder in packet, sequential [...] 250 mg tablet Discontinued 0 PO .COMPLEX November 19, 2024 12:00am February 19, 2025 11:11am For 250 mg dose pack: take 500 mg today (day 1), then 250 mg for 4 days (days 2-5) PO Start: 09-20-2024 End: 10-06-2024 take 2 tablets by mouth once daily Azithromycin 250 mg tablet Discontinued 250 MG PO Daily 09 19September 20, 2024 12:00am October 06, 2024 2:06pm [...] Discontinued bupivacaine hydrochloride 5 mg/ml injectable solution (18 sources) Amide Local Anesthetic Start: 03-24-2025 End: 03-18-2025 bupivacaine (Marcaine) 0.5 % injection 5 mg Start: 03-24-2025 End: 03-18-2025 bupivacaine (Marcaine) 0.5 % injection 5 mg Start: 03-24-2025 End: 03-18-2025 5 mg, Injection, Once, On 03/24/25 at 1415, For 1 dose Start: 03-24-2025 End: 03-18-2025 5 mg, Injection, Once, On 03/24/25 at 1415, For 1 dose Start: 02-17-2025 End: 02-04-2025 bupivacaine (Marcaine) 0.5 [...] Comment on above: Take 1 tablet by [facility] twice daily. dexamethasone phosphate 4 mg/ml injectable solution (20 sources) Corticosteroid Start: 03-24-2025 End: 03-18-2025 dexAMETHasone sod phos (Decadron) injection 4 mg Start: 03-24-2025 End: 03-18-2025 4 mg (1 mL), Injection, Once , On Sun03/24/25 at 1415, For 1 dose Start: 02-17-2025 End: 02-04-2025 dexAMETHasone sod phos (Deca dron) injection 4 mg Start: 02-17-2025 End: 02-04-2025 [...] capsule Discontinued 100 MG PO Twice daily 06 04November 25, 2024 12:00am February 19, 2025 11:11am Start: 11-05-2018 End: 10-17-2022 take 1 capsule by mouth every twelve hours doxycycline monohydrate (MONODOX) 100 mg capsule TAKE 1 CAPSULE BY MOUTH EVERY 12 HOURS FOR 10 DAYS 0 11/05/2018 10/17/2022 Discontinued Comment on above: TAKE 1 CAPSULE BY [facility] EVERY 12 HOURS FOR 10 DAYS DULoxetine 20 mg delayed release oral capsule (4 sources) Serotonin and Norepinephrine Reuptake Inhibitor take 1 capsule by mouth every twelve hours Cymbalta 20 MG 1 capsule Orally Twice a day Not-Taking 1 ml evolocumab 140 mg/ml auto-injector (3 sources) PCSK9 Inhibitor Start: End: inject 140 mg [...] Ruiz Start: 05-15-2023 take 1 tablet by [facility] every twenty-four hours Ezetimibe 10 MG 1 [...] 02/27/2019 10/17/2022 Discontinued take 1 capsule by [facility] every twenty-four hours Gabapentin 100 MG 1 capsule Orally Once a day Not-Taking/PRN Comment on above: Take 1 capsule by [facility] three times daily for 30 days. gadoterate meglumine (Dotarem) 0.5 mmol/mL contrast injection 30 mL (1 source) Start: 12-13-19 End: 12-13-19 inject 30 mL intravenously once 30 mL, intravenous, Once in imaging, Starting on [facility] 12/13/23 at 0817, For 1 dose, [...] 17, 2022 9:01am take 1 tablet by [facility] three times daily at mealtime as [...] 02, 2023 1:48pm take 1 capsule by [facility] once daily at mealtime indomethacin SR (Indocin SR) 75 MG ER capsule indomethacin ER 75 mg capsule,extended release take 1 capsule by mouth once daily with food 0 Active take 1 capsule by [facility] every twenty-four hours Indomethacin ER 75 [...] End: 02-19-2025 take 1 tablet by mouth at bedtime [...] Coronary arteriosclerosis; Translations: [Atherosclerotic heart disease of [place] coronary artery without angina pectoris] Onset: 4 [...] sources) Dehydration; Translations: [Dehydration] 10-06-2024 Episodic Glaucoma (20 sources) Preglaucoma, unspecified, right eye; Translations: [Preglaucoma, [...] Other hereditary and degenerative nervous system conditions (20 sources) Isolated cervical dystonia; Translations: [Spasmodic torticollis] [...] Onset: 3 Chronic Other nervous system disorders (20 sources) Brachial plexus disorder; Translations: [Brachial plexus disorders] Onset: 3 11-23-2022 Chronic Other nervous system disorders (20 sources) Ulnar neuropathy; Translations: [Lesion of ulnar nerve, unspecified upper limb] Onset: 3 12-29-2022 Chronic Other nervous system disorders (1 source) Lesion of brainstem; Translations: [Disorder of brain, unspecified] 10-05-2023 Chronic Other nervous system disorders (4 sources) Other specified disorders of brain; Translations: [Other conditions of brain] 10-29-2023 Chronic Other nervous system disorders (19 sources) Central pontine myelinolysis; Translations: [Central pontine [...] unspecified joint Episodic Other non-traumatic joint disorders (2 sources) Pain in right shoulder; Translations: [Pain in [...] without specification of site] Chronic Secondary malignancies (20 sources) Secondary malignant neoplasm of lymph node; [...] Spine Surgery; Translations: [Post-op Spine Surgery] Onset: Past or Other Problems Problem Classification Problem [...] caused by tuberculosis or sexually transmitted disease) (19 sources) Myelitis; Translations: [Myelitis, unspecified] Onset: 08-29-2023 08-29-2023 Episodic Headache; including migraine (3 sources) Headache; including migraine Onset: 11-01-2021 Resolved: 01-30-2022 Malaise and fatigue (20 sources) Asthenia; Translations: [Weakness] Onset: 12-29-2022 12-29-2022 Episodic Other and unspecified benign neoplasm (20 sources) Schwannoma; Translations: [Benign neoplasm of peripheral nerves and autonomic nervous system, unspecified] Onset: 12-10-2022 12-10-2022 Episodic Other connective tissue disease (20 sources) Muscle pain; Translations: [Myalgia, unspecified site] Onset: 12-10-2022 12-10-2022 Episodic Other connective tissue disease (20 sources) Pain in left arm; Translations: [Pain in left arm] Onset: 12-29-2022 12-29-2022 Episodic Other connective tissue disease (20 sources) Spasm of cervical paraspinous muscle; Translations: [Other muscle spasm] Onset: 12-29-2022 12-29-2022 Episodic Other connective tissue disease (20 sources) Radicular pain; Translations: [Neuralgia and neuritis, [...] US ankle/arm indiceson 02-27 US ankle/arm indices [facility] [place] [address] Ultrasound Report Signed Patient: Shantel Melendez MR#: [id number] : 1960 Acct:[id number] Age/Sex: 64 / M ADM Date: 02/26/25 Loc: Room: Type: [facility] Attending Dr: Griselda Hastings DO Ordering Provider: Griselda Hastings DO Date of Service: 02/26/25 US/US ankle/arm indices: I73.9 - Peripheral vascular disease, unspecified Copies to: Griselda R Kuns,DO LOWER EXTREMITY SEGMENTAL ARTERIAL DOPSCAN (PVR) INDICATION: [...] Harvey MD,FACS,FSVS 02/27/2025 7:42 AM Dictation Location: [place] [address] Tech: Agueda Helm Transcribed By: MARISA 02/27/2542 Dictated By: Ruddy Harvey MD 02/27/2541 Signed By: 02/27/25741 Normal [facility] Basophils Auto (Bld) [#/Vol] Ordered By: Sofia Marker on 02-18-2025 Basophils (Bld) [#/Vol] 0.1 10 3/uL 0.0-0.1 [facility] Basophils/100 WBC Auto (Bld) Ordered By: Sofia Marker on 02-18-2025 Basophils/100 WBC (Bld) 0.7 % 0.2-2.0 [facility] Eosinophils/100 WBC Auto (Bl d)Ordered By: Sofia Marker on 02-18-2025 Eosinophils/100 WBC (Bld) 1.1 % 0.9-7.0 [facility] Erythrocyte distribution wid th Auto (RBC) [Ratio]Ordered By: Sofia Marker on 02-18-2025 Erythrocyte distribution width (RBC) [Ratio] 13.4 % 11.0-15.0 [facility] Fibrin D-dimer [Presence] in Platelet poor plasma by Latex agglutinationOrdered By: Sofia Marker on 02-18-2025 Fibrin D-dimer LA Ql (PPP) 0.56 mg/L FEU <=0.59 [facility] Comment on above: Increases in D-Dimer [...] on 02-18-2025 Globulin (S) [Mass/Vol] 2.5 g/dL [facility] Glomerular filtration rate ( GFR) estimation in non- AmericanOrdered By: Sofia Marker on 02-18-2025 GFR/1.73 sq M.predicted among non-blacks MDRD (S/P/Bld) [Vol rate/Area] mL/min/{1.73_m2} >=60 mL/min/1.7 3m 2 [facility] Hematocrit Auto (Bld) [Volum e fraction]Ordered By: Sofia Marker on 02-18-2025 Hematocrit (Bld) [Volume fraction] 39.7 % Low 42.0-54.0 [facility] Hemoglobin [Mass/volume] in BloodOrdered By: Sofia Marker on 02-18-2025 Hemoglobin (Bld) [Mass/Vol] 13.8 g/dL Low 14.0-18.0 [facility] Laboratory - Chemistry and C hemistry - challengeOrdered By: Sofia Marker on 02-18-2025 Albumin [Mass/Vol] 3.0 g/dL Low 3.4-5.0 [facility] ALP [Catalytic activity/Vol] 68 U/L 46-116 [facility] ALT [Catalytic activity/Vol] 18 U/L 16-63 [facility] AST [Catalytic activity/Vol] 11 U/L Low 15-37 [facility] Bilirubin [Mass/Vol] 0.8 mg/dL 0.2-1.0 [facility] Calcium [Mass/Vol] 9.5 mg/dL 8.5-10.1 [facility] Chloride [Moles/Vol] 108 mmol/L High 98-107 [facility] CO2 [Moles/Vol] 27.5 mmol/L 21.0-32.0 [facility] Creatinine [Mass/Vol] 0.87 mg/dL 0.70-1.30 [facility] GFR/1.73 sq M.predicted MDRD (S/P/Bld) [Vol rate/Area] mL/min/{1.73_m2} >=60 mL/min/1.7 3m 2 [facility] Glucose [Mass/Vol] 78 mg/dL 74-106 [facility] Potassium [Moles/Vol] 4.1 mmol/L 3.5-5.1 [facility] Protein [Mass/Vol] 5.5 g/dL Low 6.4-8.2 [facility] Sodium [Moles/Vol] 144 mmol/L 136-145 [facility] Urea nitrogen [Mass/Vol] 11.0 mg/dL 7.0-18.0 [facility] Urea nitrogen/Creatinine [Mass ratio] 12.6 mg/mg [facility] Laboratory - Hematology and Cell countsOrdered By: Sofia Marker on 02-18-2025 Immature granulocytes/100 WBC (Bld) 0.3 % 0.0-0.5 [facility] Leukocytes [#/volume] correc mone for nucleated erythrocytes in Blood by Automated counOrdered By: Sofia Marker on 02-18-2025 WBC corrected for nucl RBC Auto (Bld) [#/Vol] 7.4 10 3/uL 4.0-11.0 [facility] Lymphocytes Auto (Bld) [#/Vo l]Ordered By: Sofia Marker on 02-18-2025 Lymphocytes (Bld) [#/Vol] 2.1 10 3/uL 1.2-3.8 [facility] Lymphocytes/100 WBC Auto (Bl d)Ordered By: Sofia Marker on 02-18-2025 Lymphocytes/100 WBC (Bld) 28.8 % 20.5-60.0 [facility] MCH Auto (RBC) [Entitic mass ]Ordered By: Sofia Marker on 02-18-2025 MCH (RBC) [Entitic mass] 32.5 pg 25.9-34.0 [facility] MCHC Auto (RBC) [Mass/Vol]Or dered By: Sofia Marker on 02-18-2025 MCHC (RBC) [Mass/Vol] 34.8 g/dL 29.9-35.2 [facility] MCV Auto (RBC) [Entitic vol] Ordered By: Sofia Marker on 02-18-2025 MCV (RBC) [Entitic vol] 93.4 fL 80.0-94.0 [facility] Monocytes Auto (Bld) [#/Vol] Ordered By: Sofia Marker on 02-18-2025 Monocytes (Bld) [#/Vol] 0.4 10 3/uL 0.3-0.8 [facility] Monocytes/100 WBC Auto (Bld) Ordered By: Sofia Marker on 02-18-2025 Monocytes/100 WBC (Bld) 5.6 % 1.7-12.0 [facility] Neutrophils Auto (Bld) [#/Vo l]Ordered By: Sofia Marker on 02-18-2025 Neutrophils (Bld) [#/Vol] 4.7 10 3/uL 1.4-6.5 [facility] Neutrophils/100 WBC Auto (Bl d)Ordered By: Sofia Marker on 02-18-2025 Neutrophils/100 WBC (Bld) 63.5 % 43.0-75.0 [facility] No Panel InformationOrdered By: Sofia Marker on 02-18-2025 Eosinophils # (Auto) 0.1 10 3/uL 0.0-0.7 [facility] Immature Granulocyte # (Auto) 0.02 10 3/uL 0.00-0.03 [facility] Troponin I High Sensitivity 11.3 pg/mL 4.0-76.1 [facility] Comment on above: CUT-OFF POINTS HAVE [...] volume (Bld) [Entitic vol] 11.4 fL 9.5-13.5 [facility] Platelets Auto (Bld) [#/Vol] Ordered By: Sofia Marker on 02-18-2025 Platelets (Bld) [#/Vol] 246 10 3/uL 150-450 [facility] RBC Auto (Bld) [#/Vol]Ordere d By: Sofia Marker on 02-18-2025 RBC (Bld) [#/Vol] 4.25 10 6/uL Low 4.70-6.10 [facility] Serum or plasma albumin/glob ulin mass ratioOrdered By: Sofia Marker on 02-18-2025 Albumin/Globulin [Mass ratio] 1.2 {ratio} [facility] Serum or plasma anion gap de terminationOrdered By: Sofia Marker on 02-18-2025 Anion gap [Moles/Vol] 12.6 mmol/L [facility] 36on 02-13-2025 36 Patient scheduled fo r 03/24/25 @ 10:30am Normal [facility] 36 LVM for pt to call fatimah ferrer to schedule consult with Dr. Figueroa to discuss SCS placement. Imaging requested. Please transfer pt to pre reg after call. Please inform ad writer when scheduled. [employer] reps will need notified. Normal [facility] Telephoneon 02-13-2025 Telephone [phone] Don Melendezian 1960 M Date Provider Department Center 02/13/2025 AYAH ALCOCER [facility] SURG Second Fl No family history on file Normal [facility] Activated partial thrombopla stin time (aPTT) in platelet poor plasma by coagulation aOrdered By: Andrius Giedraitis on 01-27-2025 aPTT Coag (PPP) [Time] 24.2 s 22.3-36.2 [facility] Basophils Auto (Bld) [#/Vol] Ordered By: Andrius Giedraitis on 01-27-2025 Basophils (Bld) [#/Vol] 0.0 10 3/uL 0.0-0.1 [facility] Basophils/100 WBC Auto (Bld) Ordered By: Sarina Ramsey on 01-27-2025 Basophils/100 WBC (Bld) 0.2 % 0.2-2.0 [facility] Eosinophils/100 WBC Auto (Bl d)Ordered By: Andguillaume Ramsey on 01-27-2025 Eosinophils/100 WBC (Bld) 0.1 % Low 0.9-7.0 [facility] Erythrocyte distribution wid th Auto (RBC) [Ratio]Ordered By: Sarina Ramsey on 01-27-2025 Erythrocyte distribution width (RBC) [Ratio] 14.1 % 11.0-15.0 [facility] Glomerular filtration rate ( GFR) estimation in non- AmericanOrdered By: Sarina Ramsey on 01-27-2025 GFR/1.73 sq M.predicted among non-blacks MDRD (S/P/Bld) [Vol rate/Area] mL/min/{1.73_m2} >=60 mL/min/1.7 3m 2 [facility] Hematocrit Auto (Bld) [Volum e fraction]Ordered By: Sarina Ramsey on 01-27-2025 Hematocrit (Bld) [Volume fraction] 38.0 % Low 42.0-54.0 [facility] Hemoglobin [Mass/volume] in BloodOrdered By: Sarina Ramsey on 01-27-2025 Hemoglobin (Bld) [Mass/Vol] 13.0 g/dL Low 14.0-18.0 [facility] INR in Platelet poor plasma by Coagulation assayOrdered By: Sarina Ramsey on 01-27-2025 INR Coag (PPP) [Relative time] 1.09 {INR} [facility] Comment on above: DESIRED INR:2.0-3.0 CONDITIONS NOT LISTED BELOW2.5-3.5 FOR PROSTHETIC HEART VALVE REPLACEMENT2.5-3.5 RECURRENT THROMBOSIS Laboratory - Chemistry and C hemistry - challengeOrdered By: Sarina Ramsey on 01-27-2025 Calcium [Mass/Vol] 9.2 mg/dL 8.5-10.1 [facility] Chloride [Moles/Vol] 106 mmol/L 98-107 [facility] CO2 [Moles/Vol] 28.7 mmol/L 21.0-32.0 [facility] Creatinine [Mass/Vol] 0.81 mg/dL 0.70-1.30 [facility] GFR/1.73 sq M.predicted MDRD (S/P/Bld) [Vol rate/Area] mL/min/{1.73_m2} >=60 mL/min/1.7 3m 2 [facility] Glucose [Mass/Vol] 89 mg/dL 74-106 [facility] Potassium [Moles/Vol] 3.7 mmol/L 3.5-5.1 [facility] Sodium [Moles/Vol] 138 mmol/L 136-145 [facility] Urea nitrogen [Mass/Vol] 17.0 mg/dL 7.0-18.0 [facility] Urea nitrogen/Creatinine [Mass ratio] 21.0 mg/mg [facility] Laboratory - Hematology and Cell countsOrdered By: Andrius Giedraitis on 01-27-2025 Immature granulocytes/100 WBC (Bld) 0.2 % 0.0-0.5 [facility] Leukocytes [#/volume] correc mone for nucleated erythrocytes in Blood by Automated counOrdered By: Andrius Giedraitis on 01-27-2025 WBC corrected for nucl RBC Auto (Bld) [#/Vol] 8.2 10 3/uL 4.0-11.0 [facility] Lymphocytes Auto (Bld) [#/Vo l]Ordered By: Andrius Giedraitis on 01-27-2025 Lymphocytes (Bld) [#/Vol] 2.4 10 3/uL 1.2-3.8 [facility] Lymphocytes/100 WBC Auto (Bl d)Ordered By: Andrius Giedraitis on 01-27-2025 Lymphocytes/100 WBC (Bld) 29.3 % 20.5-60.0 [facility] MCH Auto (RBC) [Entitic mass ]Ordered By: Andrius Giedraitis on 01-27-2025 MCH (RBC) [Entitic mass] 32.1 pg 25.9-34.0 [facility] MCHC Auto (RBC) [Mass/Vol]Or dered By: Andrius Giedraitis on 01-27-2025 MCHC (RBC) [Mass/Vol] 34.2 g/dL 29.9-35.2 [facility] MCV Auto (RBC) [Entitic vol] Ordered By: Andrius Giedraitis on 01-27-2025 MCV (RBC) [Entitic vol] 93.8 fL 80.0-94.0 [facility] Monocytes Auto (Bld) [#/Vol] Ordered By: Andrius Giedraitis on 01-27-2025 Monocytes (Bld) [#/Vol] 0.4 10 3/uL 0.3-0.8 [facility] Monocytes/100 WBC Auto (Bld) Ordered By: Andrius Giedraitis on 01-27-2025 Monocytes/100 WBC (Bld) 5.0 % 1.7-12.0 [facility] Neutrophils Auto (Bld) [#/Vo l]Ordered By: Andrius Giedraitis on 01-27-2025 Neutrophils (Bld) [#/Vol] 5.4 10 3/uL 1.4-6.5 [facility] Neutrophils/100 WBC Auto (Bl d)Ordered By: Andrius Giedraitis on 01-27-2025 Neutrophils/100 WBC (Bld) 65.2 % 43.0-75.0 [facility] No Panel InformationOrdered By: Andrius Giedraitis on 01-27-2025 Eosinophils # (Auto) 0.0 10 3/uL 0.0-0.7 [facility] Immature Granulocyte # (Auto) 0.02 10 3/uL 0.00-0.03 [facility] Platelet mean volume Auto (B ld) [Entitic vol]Ordered By: Andrius Giedraitis on 01-27-2025 Platelet mean volume (Bld) [Entitic vol] 11.4 fL 9.5-13.5 [facility] Platelets Auto (Bld) [#/Vol] Ordered By: Andrius Giedraitis on 01-27-2025 Platelets (Bld) [#/Vol] 214 10 3/uL 150-450 [facility] Prothrombin time (PT)Ordered By: Sarina Roxy on 01-27-2025 PT Coag (PPP) [Time] 11.5 s 9.0-11.6 [facility] RBC Auto (Bld) [#/Vol]Ordere d By: Sarina Ramsey on 01-27-2025 RBC (Bld) [#/Vol] 4.05 10 6/uL Low 4.70-6.10 [facility] Serum or plasma anion gap de terminationOrdered By: Sarina Ramsey on 01-27-2025 Anion gap [Moles/Vol] 7.0 mmol/L [facility] No Panel Informationon 01-08 [facility] XR CERVICAL SPINE 2-3 VIEWSo n [...] By: Yehuda Pozo on 2024 Study report [facility] [place] [address] XRay Report Signed Patient: Shantel Melendez MR#: [id number] : 1960 Acct:[id number] Age/Sex: 64 / M ADM Date: 5 Loc: [facility] Room: Type: [facility] Attending Dr: Griselda Hastings DO Copies to: [...] NO ACUTE CARDIOPULMONARY ABNORMALITY. Impression dictated by: Samantha Solorzano Jr..OMaria R 2024 4:30 PM Dictation Location: RADIO-PC-19 Transcribed By: MARISA 11/24/24 1630 Dictated By: Yung Pozo Jr, DO 11/24/24 1630 Signed By: 11/24/24 1630 [facility] XR chest 2V*on 2024 XR chest 2V* [facility] [place] [address] [place] [address] XRay Report Signed Patient: Shantel Melendez MR#: [id number] : 1960 Acct:[id number] Age/Sex: 64 / M ADM Date: 11/24/24 Loc: [facility] Room: Type: [facility] Attending Dr: Griselda Hastings DO Copies [...] NO ACUTE CARDIOPULMONARY ABNORMALITY. Impression dictated by: Samantha Solorzano Jr..OMaria R 2024 4:30 PM Dictation Location: RADIO-PC-19 Transcribed By: MARISA 11/24/24 1630 Dictated By: Yung Pozo Jr, DO 11/24/24 1630 Signed By: 11/24/24 1630 Normal [facility] Influenza virus B Ag [Presen ce] in Upper respiratory specimen by Rapid immunoassayon 11-19-2024 FLUBV Ag IA.rapid Ql (Nph) Influenza virus B Ag [Presence] in Upper respiratory specimen by Rapid immunoassay [facility] FLUBV Ag IA.rapid Ql (Nph) Negative [facility] No Panel Informationon 11-19 Influenza Type A (Rapid) Negative [facility] POC SARS CoV-2 Antigen Negative [facility] No Panel InformationOrdered By: Griselda Hastings on 11-19-2024 Quick Strep (POC) [facility] RSV (POC) [facility] CNOVSPon 11-07-2024 CNOVSP Visit (SP) Office ([place]) ----- SHANTEL MELENDEZ ([id number]) 1960 M Date Time Provider Department 11/07/24 9:20 AM RACQUEL COLE During your visit today, we recorded the following information about you: Temperature Pulse Respiration Blood pressure 97.5 degrees 72/minute 16/minute 115/89 Weight Height 79.3 kg 1.706 m Racquel Cole MD 11/07/2024 11:09 AM Signed NAME: Shantel Melendez CLINIC NO.: [id number] DATE [facility]: [facility] Some elements in this clinic note that are critical to medical decision making have been carefully reviewed and included from a prior clinic note dated: November 02, 2023 ([place]) Referring Provider: Griselda Hastings DO Additional Clinicians involved in Shantel Melendez's care: Dr Kimberly Nichole ENT, Dr. 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 10/05/2021 - MRI Brain: [facility] There is T2 and T2 [...] may represent (more content not included)... Normal [facility] No Panel InformationOrdered By: Nathanael Arango on 11-05-2024 Miscellaneous Pathology Test See comment [facility] Comment on above: See report. Scanned copy available in EMR. Pathology Request for Lab Co rpon 11-05-2024 Pathology Request for Lab Nancy Normal [facility] Comment on above: Order Comment: MARITZA MEEK ECIMEN Result Comment: See report. Scanned copy available in EMR. PERFORMED BY: [place] [address] PATHOLOGIST ENGINEER OF SYSTEM DEVELOPMENT EDUARDO HOLLINGSWORTH M.D. Performed By: #### P ATH TO [facility] #### [address] Basophils Auto (Bld) [#/Vol] on 11-03-2024 Basophils (Bld) [#/Vol] Automated basophil count <0.11 [facility] Basophils (Bld) [#/Vol] 0.06 10*3/uL <0.11 [facility] Basophils/100 WBC Auto (Bld) on 11-03-2024 Basophils/100 WBC (Bld) Automated basophil % [facility] Basophils/100 WBC (Bld) 1.0 % [facility] Blood manual differential co mment interpretation narrativeon 11-03-2024 Manual differential comment Curtis (Bld) [Interp] Blood manual differential comment interpretation narrative [facility] Manual differential comment Curtis (Bld) [Interp] Auto [facility] CBC W Auto Differential pane l (Bld)on 11-03-2024 Basophils (Bld) [#/Vol] 0.06 10*3/uL [facility] Basophils/100 WBC (Bld) 1 % [facility] Differential cell count method Nom (Bld) Auto [facility] Eosinophils (Bld) [#/Vol] 0.16 10*3/uL [facility] Eosinophils/100 WBC (Bld) 2.7 % [facility] Erythrocyte distribution width (RBC) [Ratio] 14.6 % 11.5 - 15.0 % [facility] Hematocrit (Bld) [Volume fraction] 40 % 39.0 - 51.0 % [facility] Hemoglobin (Bld) [Mass/Vol] 13.6 g/dL 13.0 - 17.0 g/dL [facility] Immature [facility] (Bld) [#/Vol] [facility] Immature granulocytes/100 WBC (Bld) 0.2 % [facility] Lymphocytes (Bld) [#/Vol] 2.73 10*3/uL [facility] Lymphocytes/100 WBC (Bld) 45.3 % [facility] MCH (RBC) [Entitic mass] 31.9 pg 26.0 - 34.0 pg [facility] MCHC (RBC) [Mass/Vol] 34 g/dL 30.5 - 36.0 g/dL [facility] MCV (RBC) [Entitic vol] 93.9 fL 80.0 - 100.0 fL [facility] Monocytes (Bld) [#/Vol] 0.4 10*3/uL [facility] Monocytes/100 WBC (Bld) 6.6 % [facility] Neutrophils (Bld) [#/Vol] 2.67 10*3/uL [facility] Neutrophils/100 WBC (Bld) 44.2 % [facility] Nucleated RBC (Bld) [#/Vol] NINF [facility] Nucleated RBC/100 WBC (Bld) [Ratio] 0 % /100 WBC [facility] Platelet mean volume (Bld) [Entitic vol] 11 fL 9.0 - 12.7 fL [facility] Platelets (Bld) [#/Vol] 281 10*3/uL [facility] RBC (Bld) [#/Vol] 4.26 10*6/uL 4.20 - 6.00 m/uL [facility] WBC (Bld) [#/Vol] 6.03 10*3/uL [facility] Basophils (Bld) [#/Vol] 0.06 10*3/uL Normal <0.11 [facility] Comment on above: Order Comment: Speci men Type: BLOOD SPECIMEN Ordering Facility: [facility] Address: [address] [place] [address] Performed By: #### 5 7021-8 #### [facility] CLIA [id number] [address] [place] [address] Basophils/100 WBC (Bld) 1.0 % Normal [facility] Comment on above: Order Comment: Speci men Type: BLOOD SPECIMEN Ordering Facility: [facility] Address: [address] [place] [address] Performed By: #### 5 7021-8 #### [facility] CLIA [id number] [address] [place] [address] Differential cell count method Nom (Bld) Auto Normal [facility] Comment on above: Order Comment: Speci men Type: BLOOD SPECIMEN Ordering Facility: [facility] Address: [address] [place] [address] Performed By: #### 5 7021-8 #### [facility] CLIA [id number] [address] [place] [address] Eosinophils (Bld) [#/Vol] 0.16 10*3/uL Normal <0.46 [facility] Comment on above: Order Comment: Speci men Type: BLOOD SPECIMEN Ordering Facility: [facility] Address: [address] [place] [address] Performed By: #### 5 7021-8 #### [facility] CLIA [id number] [address] [place] [address] Eosinophils/100 WBC (Bld) 2.7 % Normal [facility] Comment on above: Order Comment: Speci men Type: BLOOD SPECIMEN Ordering Facility: [facility] Address: [address] [place] [address] Performed By: #### 5 7021-8 #### [facility] CLIA [id number] [address] [place] [address] Erythrocyte distribution width (RBC) [Ratio] 14.6 % Normal 11.5-15.0 [facility] Comment on above: Order Comment: Speci men Type: BLOOD SPECIMEN Ordering Facility: [facility] Address: [address] [place] [address] Performed By: #### 5 7021-8 #### [facility] CLIA [id number] [address] [place] [address] Hematocrit (Bld) [Volume fraction] 40.0 % Normal 39.0-51.0 [facility] Comment on above: Order Comment: Speci men Type: BLOOD SPECIMEN Ordering Facility: [facility] Address: [address] [place] [address] Performed By: #### 5 7021-8 #### [facility] CLIA [id number] [address] [place] [address] Hemoglobin (Bld) [Mass/Vol] 13.6 g/dL Normal 13.0-17.0 [facility] Comment on above: Order Comment: Speci men Type: BLOOD SPECIMEN Ordering Facility: [facility] Address: [address] [place] [address] Performed By: #### 5 7021-8 #### [facility] CLIA [id number] [address] [place] [address] Immature granulocytes (Bld) [#/Vol] 10*3/uL Normal <0.10 [facility] Comment on above: Order Comment: Speci men Type: BLOOD SPECIMEN Ordering Facility: [facility] Address: [address] [place] [address] Performed By: #### 5 7021-8 #### [facility] CLIA [id number] [address] [place] [address] Immature granulocytes/100 WBC (Bld) 0.2 % Normal [facility] Comment on above: Order Comment: Speci men Type: BLOOD SPECIMEN Ordering Facility: [facility] Address: [address] [place] [address] Performed By: #### 5 7021-8 #### [facility] CLIA [id number] [address] [place] [address] Lymphocytes (Bld) [#/Vol] 2.73 10*3/uL Normal 1.00-4.00 [facility] Comment on above: Order Comment: Speci men Type: BLOOD SPECIMEN Ordering Facility: [facility] Address: [address] [place] [address] Performed By: #### 5 7021-8 #### [facility] CLIA [id number] [address] [place] [address]41 Lymphocytes/100 WBC (Bld) 45.3 % Normal [facility] Comment on above: Order Comment: Speci men Type: BLOOD SPECIMEN Ordering Facility: [facility] Address: [address] [place] [address] Performed By: #### 5 7021-8 #### [facility] CLIA [id number] [address] [place] [address]9916 MCH (RBC) [Entitic mass] 31.9 pg Normal 26.0-34.0 [facility] Comment on above: Order Comment: Speci men Type: BLOOD SPECIMEN Ordering Facility: [facility] Address: [address] [place] [address] Performed By: #### 5 7021-8 #### [facility] CLIA [id number] [address] [place] [address] MCHC (RBC) [Mass/Vol] 34.0 g/dL Normal 30.5-36.0 [facility] Comment on above: Order Comment: Speci men Type: BLOOD SPECIMEN Ordering Facility: [facility] Address: [address] [place] [address] Performed By: #### 5 7021-8 #### [facility] CLIA [id number] [address] [place] [address] MCV (RBC) [Entitic vol] 93.9 fL Normal 80.0-100.0 [facility] Comment on above: Order Comment: Speci men Type: BLOOD SPECIMEN Ordering Facility: [facility] Address: [address] [place] [address] Performed By: #### 5 7021-8 #### [facility] CLIA [id number] [address] [place] [address]37 Monocytes (Bld) [#/Vol] 0.40 10*3/uL Normal <0.87 [facility] Comment on above: Order Comment: Speci men Type: BLOOD SPECIMEN Ordering Facility: [facility] Address: [address] [place] [address] Performed By: #### 5 7021-8 #### [facility] CLIA [id number] [address] [place] [address]126 Monocytes/100 WBC (Bld) 6.6 % Normal [facility] Comment on above: Order Comment: Speci men Type: BLOOD SPECIMEN Ordering Facility: [facility] Address: [address] [place] [address] Performed By: #### 5 7021-8 #### [facility] CLIA [id number] [address] [place] [address]104 Neutrophils (Bld) [#/Vol] 2.67 10*3/uL Normal 1.45-7.50 [facility] Comment on above: Order Comment: Speci men Type: BLOOD SPECIMEN Ordering Facility: [facility] Address: [address] [place] [address] Performed By: #### 5 7021-8 #### [facility] CLIA [id number] [address] [place] [address] Neutrophils/100 WBC (Bld) 44.2 % Normal [facility] Comment on above: Order Comment: Speci men Type: BLOOD SPECIMEN Ordering Facility: [facility] Address: [address] [place] [address] Performed By: #### 5 7021-8 #### [facility] CLIA [id number] [address] [place] [address] Nucleated RBC (Bld) [#/Vol] 10*3/uL Normal <0.01 [facility] Comment on above: Order Comment: Speci men Type: BLOOD SPECIMEN Ordering Facility: [facility] Address: [address] [place] [address] Performed By: #### 5 7021-8 #### [facility] CLIA [id number] [address] [place] [address] 28098 Nucleated RBC/100 WBC (Bld) [Ratio] 0.0 /100 WBC Normal [facility] Comment on above: Order Comment: Speci men Type: BLOOD SPECIMEN Ordering Facility: [facility] Address: [address] [place] [address] Performed By: #### 5 7021-8 #### [facility] CLIA [id number] [address] [place] [address] Platelet mean volume (Bld) [Entitic vol] 11.0 fL Normal 9.0-12.7 [facility] Comment on above: Order Comment: Speci men Type: BLOOD SPECIMEN Ordering Facility: [facility] Address: [address] [place] [address] Performed By: #### 5 7021-8 #### [facility] CLIA [id number] [address] [place] [address] Platelets (Bld) [#/Vol] 281 10*3/uL Normal 150-400 [facility] Comment on above: Order Comment: Speci men Type: BLOOD SPECIMEN Ordering Facility: [facility] Address: [address] [place], [place] [address] Performed By: #### 5 7021-8 #### [facility] CLIA [id number] [address] [place] [address] 28783 RBC (Bld) [#/Vol] 4.26 10*6/uL Normal 4.20-6.00 [facility] Comment on above: Order Comment: Speci men Type: BLOOD SPECIMEN Ordering Facility: [facility] Address: [address] [place], [place] [address] Performed By: #### 5 7021-8 #### [facility] CLIA [id number] [address] [place] [address]20 WBC (Bld) [#/Vol] 6.03 10*3/uL Normal 3.70-11.00 [facility] Comment on above: Order Comment: Speci men Type: BLOOD SPECIMEN Ordering Facility: [facility] Address: [address] [place], [place] [address] Performed By: #### 5 7021-8 #### [facility] CLIA [id number] [address] [place] [address] [facility] SHANTEL MELENDEZ ([id number]) 1960 M Date Time Provider Department 11/03/24 [...] [C76.0] Order(s):COMPREHENSIVE METABOLIC PANEL [SQCMP] Order #: [id number] FUTURE COMPLETE BLOOD COUNT AND DIFFERENTIAL [SQCBCDIF] Order #: [id number] FUTURE Prescriptions as of 11/03/2024 - amLODIPine [...] Status:Closed by RACQUEL COLE on 11/03/24 Normal [facility] CT CHEST W IVCONon CT CHEST W IVCON * * *Final Report* * * DATE OF EXAM: Nov 03 2024 8:41AM [facility] 0539 - CT CHEST [...] any questions regarding this interpretation, please call [phone]. If you are unable to reach us at the number above, please feel free to contact [facility]iology at [phone]. [id number] Normal [facility] CT Chest W contrast Tristin IMPRESSION: [...] any questions regarding this interpretation, please call [phone]. If you are unable to reach us at the number above, please feel free to contact [facility] at [phone]. DIVISION OF RADIOLOGY * * *Final Report* * * DATE OF EXAM: Nov 03 2024 8:41AM [facility] 0539 - CT CHEST [...] No additional findings. DIVISION OF RADIOLOGY Provider, [facility] - 11/03/2024 * * *Final Report* * * DATE OF EXAM: Nov 03 2024 8:41AM [facility] 0539 - CT CHEST [...] any questions regarding this interpretation, please call [phone]. If you are unable to reach us at the number above, please feel free to contact [facility] at [phone]. [facility] CT NECK SOFT TISSUE W IVCONo n 11-03-2024 CT NECK SOFT TISSUE W IVCON * * *Final Report* * * DATE OF EXAM: Nov 03 2024 8:41AM [facility] 0013 - CT NECK [...] evidence of abnormal lymph nodes. [email or web address] Transcribe Date/Time: Nov 03 2024 8:53A Dictated by: BENJAMIN AL MD This examination was interpreted and the report reviewed and electronically signed by: BENJAMIN AL MD on Nov 03 2024 9:01AM EST Thank you for allowing us to participate in the care of your patient. Should there be any questions regarding this interpretation, please call [phone]. If you are unable to reach us at the number above, please feel free to contact [facility] at [phone]. [id number] Normal [facility] CT Neck W contrast Tristin - IMPRESSION: Primary: Category 1. Expected post-treatment changes in the neck without evidence of recurrent disease in the primary site. Neck: Category 1. No evidence of abnormal lymph nodes. [email or web address] Transcribe Date/Time: Nov 03 2024 8:53A Dictated by: BENJAMIN AL MD This examination was interpreted and the report reviewed and electronically signed by: BENJAMIN AL MD on Nov 03 2024 9:01AM EST Thank you for allowing us to participate in the care of your patient. Should there be any questions regarding this interpretation, please call [phone]. If you are unable to reach us at the number above, please feel free to contact [facility] at [phone]. DIVISION OF RADIOLOGY * * *Final Report* * * DATE OF EXAM: Nov 03 2024 8:41AM [facility] 0013 - CT NECK [...] Other: Not applicable. DIVISION OF RADIOLOGY Provider, [facility] - 11/03/2024 * * *Final Report* * * DATE OF EXAM: Nov 03 2024 8:41AM [facility] 0013 - CT NECK [...] evidence of abnormal lymph nodes. [email or web address] Transcribe Date/Time: Nov 03 2024 8:53A Dictated by: BENJAMIN AL MD This examination was interpreted and the report reviewed and electronically signed by: BENJAMIN AL MD on Nov 03 2024 9:01AM EST Thank you for allowing us to participate in the care of your patient. Should there be any questions regarding this interpretation, please call [phone]. If you are unable to reach us at the number above, please feel free to contact [facility] at [phone]. [facility] CT Neck W contrast IVOrdered By: Ccf Provider on 11-03-2024 [facility] Eosinophils/100 WBC Auto (Bl d)on 11-03-2024 Eosinophils/100 WBC (Bld) Automated eosinophil % [facility] Eosinophils/100 WBC (Bld) 2.7 % [facility] Erythrocyte distribution wid th Auto (RBC) [Ratio]on 11-03-2024 Erythrocyte distribution width (RBC) [Ratio] Erythrocyte distribution width [Ratio] by Automated count 11.5-15.0 [facility] Erythrocyte distribution width (RBC) [Ratio] 14.6 % 11.5-15.0 [facility] Hematocrit Auto (Bld) [Volum e fraction]on 11-03-2024 Hematocrit (Bld) [Volume fraction] Hematocrit [Volume Fraction] of Blood by Automated count 39.0-51.0 [facility] [facility] Hematocrit (Bld) [Volume fraction] 40.0 % 39.0-51.0 [facility] Hemoglobin [Mass/volume] in Bloodon 11-03-2024 Hemoglobin (Bld) [Mass/Vol] Hemoglobin [Mass/volume] in Blood 13.0-17.0 [facility] Hemoglobin (Bld) [Mass/Vol] 13.6 g/dL 13.0-17.0 [facility] Laboratory - Hematology and Cell countson 11-03-2024 Eosinophils (Bld) [#/Vol] 0.16 10*3/uL <0.46 [facility] Immature granulocytes/100 WBC (Bld) 0.2 % [facility] Leukocytes [#/volume] correc mone for nucleated erythrocytes in Blood by Automated counon 11-03-2024 WBC corrected for nucl RBC Auto (Bld) [#/Vol] Leukocytes [#/volume] corrected for nucleated erythrocytes in Blood by Automated coun .70-11 [facility] WBC corrected for nucl RBC Auto (Bld) [#/Vol] 6.03 k/uL 3.70-11.00 [facility] Lymphocytes Auto (Bld) [#/Vo l]on 11-03-2024 Lymphocytes (Bld) [#/Vol] Lymphocytes [#/volume] in Blood by Automated count 1.00-4.00 [facility] Lymphocytes (Bld) [#/Vol] 2.73 10*3/uL 1.00-4.00 [facility] Lymphocytes/100 WBC Auto (Bl d)on 11-03-2024 Lymphocytes/100 WBC (Bld) Lymphocytes/100 leukocytes in Blood by Automated count [facility] Lymphocytes/100 WBC (Bld) 45.3 % [facility] MCH Auto (RBC) [Entitic mass ]on 11-03-2024 MCH (RBC) [Entitic mass] MCH [Entitic mass] by Automated count 26.0-34.0 [facility] MCH (RBC) [Entitic mass] 31.9 pg 26.0-34.0 [facility] MCHC Auto (RBC) [Mass/Vol]on 11-03-2024 MCHC (RBC) [Mass/Vol] MCHC [Mass/volume] by Automated count 30.5-36.0 [facility] MCHC (RBC) [Mass/Vol] 34.0 g/dL 30.5-36.0 [facility] MCV Auto (RBC) [Entitic vol] on 11-03-2024 MCV (RBC) [Entitic vol] MCV [Entitic volume] by Automated count 80.0-100.0 [facility] MCV (RBC) [Entitic vol] 93.9 fL 80.0-100.0 [facility] Monocytes Auto (Bld) [#/Vol] on 11-03-2024 Monocytes (Bld) [#/Vol] Automated blood monocyte count <0.87 [facility] Monocytes (Bld) [#/Vol] 0.40 10*3/uL <0.87 [facility] Monocytes/100 WBC Auto (Bld) on 11-03-2024 Monocytes/100 WBC (Bld) Automated monocyte % [facility] Monocytes/100 WBC (Bld) 6.6 % [facility] Neutrophils Auto (Bld) [#/Vo l]on 11-03-2024 Neutrophils (Bld) [#/Vol] Neutrophils [#/volume] in Blood by Automated count 1.45-7.50 [facility] Neutrophils (Bld) [#/Vol] 2.67 10*3/uL 1.45-7.50 [facility] Neutrophils/100 WBC Auto (Bl d)on 11-03-2024 Neutrophils/100 WBC (Bld) Automated neutrophil % [facility] Neutrophils/100 WBC (Bld) 44.2 % [facility] No Panel Informationon 11-03 Radiology Study observation (narrative) [facility] Immature Granulocyte # (Auto) <0.03 k/uL <0.10 [facility] Nucleated RBC Auto (Bld) [#/ Vol]on 11-03-2024 Nucleated RBC (Bld) [#/Vol] Nucleated erythrocytes [#/volume] in Blood by Automated count <0.01 [facility] Nucleated RBC (Bld) [#/Vol] 10*3/uL <0.01 [facility] Nucleated erythrocytes [Pres ence] in Blood by Automated counton 11-03-2024 Nucleated RBC Auto Ql (Bld) Nucleated erythrocytes [Presence] in Blood by Automated count [facility] Nucleated RBC Auto Ql (Bld) 0.0 /100{WBC} [facility] Platelet mean volume Auto (B ld) [Entitic vol]on 11-03-2024 Platelet mean volume (Bld) [Entitic vol] Platelet mean volume [Entitic volume] in Blood by Automated count 9.0-12.7 [facility] Platelet mean volume (Bld) [Entitic vol] 11.0 fL 9.0-12.7 [facility] Platelets Auto (Bld) [#/Vol] on 11-03-2024 Platelets (Bld) [#/Vol] Platelets [#/volume] in Blood by Automated count 150-400 [facility] Platelets (Bld) [#/Vol] 281 10*3/uL 150-400 [facility] RBC Auto (Bld) [#/Vol]on RBC (Bld) [#/Vol] Erythrocytes [#/volu me] in Blood by Automated count 4.20-6.00 [facility] RBC (Bld) [#/Vol] 4.26 10*6/uL 4.20-6.00 [facility] MR TRANSFER OF OUTSIDE FILMS on 10-21-2024 MR TRANSFER OF OUTSIDE FILMS Outside images for comparison or treatment purposes, not interpreted by Radiologists. [facility] Study Interpretation of outs jeffrey studyon 10-21-2024 Outside images for comparison or treatment purposes, not interpreted by Radiologists. IMAGING X-ray reportOrdered By: Evie Eubanks on 10-10-2024 Study report [facility] [place] [address] XRay Report Signed Patient: Shantel Melendez MR#: [id number] : 1960 Acct:[id number] Age/Sex: 63 / M ADM Date: 5 Loc: XD Room: Type: [facility] Attending Dr: Solomon Narayanan PA-C Copies to: [...] Eubanks M.D. 10/10/2024 3:02 PM Dictation Location: [place] [address] Transcribed By: [facility] 10/10/24 1502 Dictated By: Dorothy Eubanks MD 10/10/24 1455 Signed By: 10/10/24 1502 [facility] Work Phone: XR cervical spine 2Von 10-10 XR cervical spine 2V [facility] [address] [place] [address] [place] [address] XRay Report Signed Patient: Shantel Melendez MR#: [id number] : 1960 Acct:[id number] Age/Sex: 63 / M ADM Date: 10/10/24 Loc: XD Room: Type: [facility] Attending Dr: Solomon Narayanan PA-C Copies to: [...] Eubanks M.D. 10/10/2024 3:02 PM Dictation Location: [place] [address] Transcribed By: MARISA 10/10/24 1502 Dictated By: Dorothy Eubanks MD 10/10/24 1455 Signed By: 10/10/24 1502 Normal [facility] Alanine aminotransferase [En zymatic activity/volume] in Serum or PlasmaOrdered By: Griselda Hastings on 10-07-2024 ALT [Catalytic activity/Vol] Alanine aminotransferase [Enzymatic activity/volume] in Serum or Plasma Low 7-52 [facility] Albumin [Mass/volume] in Ser um or Plasma by Bromocresol green (BCG) dye binding methoOrdered By: Griselda Hastings on 10-07-2024 Albumin BCG dye [Mass/Vol] Albumin [Mass/volume] in Serum or Plasma by Bromocresol green (BCG) dye binding metho Low 3.5-5.7 [facility] Alkaline phosphatase [Enzyma tic activity/volume] in Serum or PlasmaOrdered By: Griselda Hastings on 10-07-2024 ALP [Catalytic activity/Vol] Alkaline phosphatase [Enzymatic activity/volume] in Serum or Plasma 34-104 [facility] Aspartate aminotransferase [ Enzymatic activity/volume] in Serum or PlasmaOrdered By: Griselda Hastings on 10-07-2024 AST [Catalytic activity/Vol] Aspartate aminotransferase [Enzymatic activity/volume] in Serum or Plasma Low 13-39 [facility] Basophils Auto (Bld) [#/Vol] Ordered By: Griselda Hastings on 10-07-2024 Basophils (Bld) [#/Vol] Automated basophil count 0.0-0.2 [facility] Basophils/100 WBC Auto (Bld) Ordered By: Griselda Hastings on 10-07-2024 Basophils/100 WBC (Bld) Automated basophil % . [facility] Bilirubin.total [Mass/volume ] in Serum or PlasmaOrdered By: Griselda Hastings on 10-07-2024 Bilirubin [Mass/Vol] Bilirubin.total [Mass/volume] in Serum or Plasma 0.3-1.0 [facility] Calcium [Mass/volume] in Ser um or PlasmaOrdered By: Griselda Hastings on 10-07-2024 Calcium [Mass/Vol] Calcium [Mass/volume ] in Serum or Plasma 8.6-10.3 [facility] Carbon dioxide, total [Moles /volume] in Serum or PlasmaOrdered By: Griselda Hastings on 10-07-2024 CO2 [Moles/Vol] Carbon dioxide, tota l [Moles/volume] in Serum or Plasma 21.0-31.0 [facility] Chloride [Moles/volume] in S rica or PlasmaOrdered By: Griselda Hastings on 10-07-2024 Chloride [Moles/Vol] Chloride [Moles/vol ume] in Serum or Plasma 98-107 [facility] Cholesterol [Mass/volume] in Serum or PlasmaOrdered By: Griselda Hastings on 10-07-2024 Cholesterol [Mass/Vol] Cholesterol [Mass /volume] in Serum or Plasma High 140-200 [facility] Comment on above: Chol less than 200 m g/dl low riskChol 201-239 mg/dl borderline riskChol 240 mg/dl and greater high risk Cholesterol in HDL [Mass/vol ume] in Serum or PlasmaOrdered By: Griselda Hastings on 10-07-2024 Cholesterol in HDL [Mass/Vol] Serum or plasma high density lipoprotein (HDL) cholesterol measurement 23-92 [facility] Comment on above: HDL CHOL ATP-III CLA SSIFICATION Cardiovascular RiskHDL > or equal to 60 mg/dL LOWHDL < 40 mg/dL HIGH Cholesterol in LDL Calc [Mas s/Vol]Ordered By: Griselda Hastings on 10-07-2024 Cholesterol in LDL [Mass/Vol] Cholesterol in LDL [Mass/volume] in Serum or Plasma by calculation High 0-100 [facility] Comment on above: LDL ATP III CLASSIFI CATIONLDL less than 100 mg/dL OptimalLDL 100-129 mg/dL Near or above optimalLDL 130-159 mg/dL Borderline highLDL 160-189 mg/dL HighLDL greater than 189 mg/dL Very high Cholesterol in VLDL Calc [Ma ss/Vol]Ordered By: Griselda Hastings on 10-07-2024 Cholesterol in VLDL [Mass/Vol] Cholesterol in VLDL [Mass/volume] in Serum or Plasma by calculation [facility] Clostridioides difficile tox in B tcdB gene [Presence] in Stool by JER with probe deteOrdered By: Manisha Negron on 10-07-2024 C. difficile toxin B tcdB gene JER+probe Ql (Stl) Clostridioides difficile toxin B tcdB gene [Presence] in Stool by JER with probe dete Negative [facility] Comment on above: Testing performed by RT-PCR Clostridium Difficileon 09-17 Clostridium Difficile Negative Normal Negative [facility] Comment on above: Result Comment: Test ing performed by RT-PCR PERFORMED BY: [place] [address] PATHOLOGIST ENGINEER OF SYSTEM DEVELOPMENT RAKEL LAZARO M.D. Performed By: #### C DT #### [address] Complete Blood Count Auto Di ffon 10-07-2024 Basophils (Bld) [#/Vol] 0.0 10*3/uL Normal 0.0-0.2 [facility] Comment on above: Result Comment: PERF ORMED BY: [place] [address] PATHOLOGIST ENGINEER OF SYSTEM DEVELOPMENT RAKEL LAZARO M.D. Performed By: #### C BC, HEPATIC, BMP, LIPASE #### [address] Basophils/100 WBC (Bld) 0.8 % Normal . [facility] Comment on above: Performed By: #### C BC, HEPATIC, BMP, LIPASE #### [place] [address] [place] Eosinophils (Bld) [#/Vol] 0.0 10*3/uL Normal 0.0-0.45 [facility] Comment on above: Performed By: #### C BC, HEPATIC, BMP, LIPASE #### [place] [address] [place] Eosinophils/100 WBC (Bld) 0.8 % Normal . [facility] Comment on above: Performed By: #### C BC, HEPATIC, BMP, LIPASE #### [address] Erythrocyte distribution width (RBC) [Ratio] 13.7 % Normal 12.0-14.8 [facility] Comment on above: Performed By: #### C BC, HEPATIC, BMP, LIPASE #### [address] Hematocrit (Bld) [Volume fraction] 36.6 % Low 38.8-50.0 [facility] Comment on above: Performed By: #### C BC, HEPATIC, BMP, LIPASE #### [address] Hemoglobin (Bld) [Mass/Vol] 12.8 g/dL Low 13.0-17.0 [facility] Comment on above: Performed By: #### C BC, HEPATIC, BMP, LIPASE #### [address] Lymphocytes (Bld) [#/Vol] 1.7 10*3/uL Normal 1.00-4.8 [facility] Comment on above: Performed By: #### C BC, HEPATIC, BMP, LIPASE #### [address] Lymphocytes/100 WBC (Bld) 31.1 % Normal . [facility] Comment on above: Performed By: #### C BC, HEPATIC, BMP, LIPASE #### [address] MCH (RBC) [Entitic mass] 32.4 pg Normal 27.5-35.2 [facility] Comment on above: Performed By: #### C BC, HEPATIC, BMP, LIPASE #### [address] MCV (RBC) [Entitic vol] 92.8 fL Normal 83.5-101 [facility] Comment on above: Performed By: #### C BC, HEPATIC, BMP, LIPASE #### [facility] [address] Mean Corpuscular HGB Conc 34.9 g/dL Normal 32.5-35.6 [facility] Comment on above: Performed By: #### C BC, HEPATIC, BMP, LIPASE #### [address] Monocytes (Bld) [#/Vol] 0.3 10*3/uL Normal 0.0-0.8 [facility] Comment on above: Performed By: #### C BC, HEPATIC, BMP, LIPASE #### [address] Monocytes/100 WBC (Bld) 4.9 % Normal . [facility] Comment on above: Performed By: #### C BC, HEPATIC, BMP, LIPASE #### [address] Neutrophils (Bld) [#/Vol] 3.4 10*3/uL Normal 1.8-7.7 [facility] Comment on above: Performed By: #### C BC, HEPATIC, BMP, LIPASE #### [place] [address] [place] Neutrophils/100 WBC (Bld) 62.4 % Normal . [facility] Comment on above: Performed By: #### C BC, HEPATIC, BMP, LIPASE #### [address] NRBC% 0.0 /100{WBC} Normal 0-0.5 [facility] Comment on above: Performed By: #### C BC, HEPATIC, BMP, LIPASE #### [address] Platelet mean volume (Bld) [Entitic vol] 8.8 fL Normal 6.6-10.1 [facility] Comment on above: Performed By: #### C BC, HEPATIC, BMP, LIPASE #### [place] [address] [place] Platelets (Bld) [#/Vol] 343 10*3/uL Normal 150-450 [facility] Comment on above: Performed By: #### C BC, HEPATIC, BMP, LIPASE #### [address] RBC (Bld) [#/Vol] 3.94 10*6/uL Normal 3.90-5.60 [facility] Comment on above: Performed By: #### C BC, HEPATIC, BMP, LIPASE #### [address] WBC (Bld) [#/Vol] 5.5 10*3/uL Normal 4.1-10.5 [facility] Comment on above: Performed By: #### C BC, HEPATIC, BMP, LIPASE #### [address] Comprehensive Metabolic Pane chanel 10-07-2024 Albumin [Mass/Vol] 3.4 g/dL Low 3.5-5.7 [facility] Comment on above: Performed By: #### C BC, HEPATIC, BMP, LIPASE #### [address] Albumin/Globulin [Mass ratio] 1.8 {ratio} Normal [facility] Comment on above: Performed By: #### C BC, HEPATIC, BMP, LIPASE #### [address] ALP [Catalytic activity/Vol] 62 U/L Normal 34-104 [facility] Comment on above: Performed By: #### C BC, HEPATIC, BMP, LIPASE #### [address] ALT [Catalytic activity/Vol] 6 U/L Low 7-52 [facility] Comment on above: Performed By: #### C BC, HEPATIC, BMP, LIPASE #### [address] Anion gap [Moles/Vol] 9.7 mmol/L Normal 6.0-15.0 [facility] Comment on above: Performed By: #### C BC, HEPATIC, BMP, LIPASE #### [address] AST [Catalytic activity/Vol] 8 U/L Low 13-39 [facility] Comment on above: Performed By: #### C BC, HEPATIC, BMP, LIPASE #### [address] Bilirubin [Mass/Vol] 0.6 mg/dL Normal 0.3-1.0 [facility] Comment on above: Performed By: #### C BC, HEPATIC, BMP, LIPASE #### [address] Calcium [Mass/Vol] 9.3 mg/dL Normal 8.6-10.3 [facility] Comment on above: Performed By: #### C BC, HEPATIC, BMP, LIPASE #### [address] Chloride [Moles/Vol] 103 mmol/L Normal 98-107 [facility] Comment on above: Performed By: #### C BC, HEPATIC, BMP, LIPASE #### [address] CO2 [Moles/Vol] 29.1 mmol/L Normal 21.0-31.0 [facility] Comment on above: Performed By: #### C BC, HEPATIC, BMP, LIPASE #### [address] Creatinine [Mass/Vol] 0.74 mg/dL Normal 0.70-1.30 [facility] Comment on above: Performed By: #### C BC, HEPATIC, BMP, LIPASE #### [place] [address] [place] GFR/1.73 sq M.predicted MDRD (S/P/Bld) [Vol rate/Area] mL/min/{1.73_m2} Normal [facility] Comment on above: Performed By: #### C BC, HEPATIC, BMP, LIPASE #### [place] [address] [place] Globulin (S) [Mass/Vol] 1.9 g/dL Normal [facility] Comment on above: Performed By: #### C BC, HEPATIC, BMP, LIPASE #### [facility] [address] Glucose [Mass/Vol] 84 mg/dL Normal 70-100 [facility] Comment on above: Result Comment: Paia Glucose Reference Range is dependent on time and content of last meal. Glucose of more than 200 mg/dL in a nonstressed, ambulatory subject supports the diagnosis of Diabetes Mellitus. ADA recommended reference range Performed By: #### C BC, HEPATIC, BMP, LIPASE #### [address] Potassium [Moles/Vol] 4.8 mmol/L Normal 3.5-5.1 [facility] Comment on above: Performed By: #### C BC, HEPATIC, BMP, LIPASE #### [address] Protein [Mass/Vol] 5.3 g/dL Low 6.4-8.9 [facility] Comment on above: Performed By: #### C BC, HEPATIC, BMP, LIPASE #### [place] [address] [place] Sodium [Moles/Vol] 137 mmol/L Normal 136-145 [facility] Comment on above: Performed By: #### C BC, HEPATIC, BMP, LIPASE #### [place] [address] [place] Urea nitrogen [Mass/Vol] 7 mg/dL Normal 7-25 [facility] Comment on above: Performed By: #### C BC, HEPATIC, BMP, LIPASE #### [place] [address] [place] Creatinine [Mass/volume] in Serum or PlasmaOrdered By: Griselda Hastings on 10-07-2024 Creatinine [Mass/Vol] Creatinine [Mass/v olume] in Serum or Plasma 0.70-1.30 [facility] Eosinophils Auto (Bld) [#/Vo l]Ordered By: Griselda Hastings on 10-07-2024 Eosinophils (Bld) [#/Vol] Automated eosinophil count 0.0-0.45 [facility] Eosinophils/100 WBC Auto (Bl d)Ordered By: Griselda Hastings on 10-07-2024 Eosinophils/100 WBC (Bld) Automated eosinophil % . [facility] Erythrocyte distribution wid th Auto (RBC) [Ratio]Ordered By: Griselda Hastings on 10-07-2024 Erythrocyte distribution width (RBC) [Ratio] Erythrocyte distribution width [Ratio] by Automated count 12.0-14.8 [facility] Globulin Calc (S) [Mass/Vol] Ordered By: Griselda Hastings on 10-07-2024 Globulin (S) [Mass/Vol] Serum globulin measurement by calculation (mass/volume) [facility] Glucose [Mass/volume] in Ser um or PlasmaOrdered By: Griselda Hastings on 10-07-2024 Glucose [Mass/Vol] Glucose [Mass/volume ] in Serum or Plasma 70-100 [facility] Comment on above: ADA recommended [...] of Blood by Automated count Low 38.8-50.0 [facility] Hemoglobin [Mass/volume] in BloodOrdered By: Griselda Hastings on 10-07-2024 Hemoglobin (Bld) [Mass/Vol] Hemoglobin [Mass/volume] in Blood Low 13.0-17.0 [facility] Leukocytes [#/volume] correc mone for nucleated erythrocytes in Blood by Automated counOrdered By: Griselda Hastings on 10-07-2024 WBC corrected for nucl RBC Auto (Bld) [#/Vol] Leukocytes [#/volume] corrected for nucleated erythrocytes in Blood by Automated coun 4.1-10.5 [facility] Lipid Panelon 10-07-2024 Cholesterol [Mass/Vol] 204 mg/dL High 140-200 [facility] Comment on above: Result Comment: Chol less than 200 mg/dl low risk Chol 201-239 mg/dl borderline risk Chol 240 mg/dl and greater high risk Performed By: #### C BC, HEPATIC, BMP, LIPASE #### [facility] [address] Cholesterol in HDL [Mass/Vol] 35 mg/dL Normal 23-92 [facility] Comment on above: Result Comment: HDL CHOL ATP-III CLASSIFICATION Cardiovascular Risk HDL > or equal to 60 mg/dL LOW HDL < 40 mg/dL HIGH Performed By: #### C BC, HEPATIC, BMP, LIPASE #### [facility] [address] Cholesterol.total/Chol esterol in HDL [Mass ratio] 5.8 {ratio} Normal <5.0 [facility] Comment on above: Performed By: #### C BC, HEPATIC, BMP, LIPASE #### [facility] [address] LDL Cholesterol,Calculated 145 mg/dL High 0-100 [facility] Comment on above: Result Comment: LDL ATP III CLASSIFICATION LDL less than 100 mg/dL Optimal LDL 100-129 mg/dL Near or above optimal LDL 130-159 mg/dL Borderline high LDL 160-189 mg/dL High LDL greater than 189 mg/dL Very high Performed By: #### C BC, HEPATIC, BMP, LIPASE #### [facility] [address] Triglyceride w/Reflex 118 mg/dL Normal 0-149 [facility] Comment on above: Result Comment: TRIG ATP III CLASSIFICATION TRIG less than 150 mg/dL Normal TRIG 150-199 mg/dL Borderline high TRIG 200-500 mg/dL High TRIG greater than 500 mg/dL Very high Standard traceable to the Center for Disease Conrtrol and Prevention (CDC) test method. Performed By: #### C BC, HEPATIC, BMP, LIPASE #### [facility] [address] VLDL CHOLESTEROL 23 mg/dL Normal [facility] Comment on above: Performed By: #### C BC, HEPATIC, BMP, LIPASE #### [facility] [address] Lymphocytes Auto (Bld) [#/Vo l]Ordered By: Griselda Hastings on 10-07-2024 Lymphocytes (Bld) [#/Vol] Lymphocytes [#/volume] in Blood by Automated count 1.00-4.8 [facility] Lymphocytes/100 WBC Auto (Bl d)Ordered By: Griselda Hastings on 10-07-2024 Lymphocytes/100 WBC (Bld) Lymphocytes/100 leukocytes in Blood by Automated count . [facility] MCH Auto (RBC) [Entitic mass ]Ordered By: Griselda Hastings on 10-07-2024 MCH (RBC) [Entitic mass] MCH [Entitic mass] by Automated count 27.5-35.2 [facility] MCHC Auto (RBC) [Mass/Vol]Or dered By: Griselda Hastings on 10-07-2024 MCHC (RBC) [Mass/Vol] MCHC [Mass/volume] by Automated count 32.5-35.6 [facility] MCV Auto (RBC) [Entitic vol] Ordered By: Griselda Hastings on 10-07-2024 MCV (RBC) [Entitic vol] MCV [Entitic volume] by Automated count 83.5-101 [facility] Monocytes Auto (Bld) [#/Vol] Ordered By: Griselda Hastings on 10-07-2024 Monocytes (Bld) [#/Vol] Automated blood monocyte count 0.0-0.8 [facility] Monocytes/100 WBC Auto (Bld) Ordered By: Griselda Hastings on 10-07-2024 Monocytes/100 WBC (Bld) Automated monocyte % . [facility] Neutrophils Auto (Bld) [#/Vo l]Ordered By: Griselda Hastings on 10-07-2024 Neutrophils (Bld) [#/Vol] Neutrophils [#/volume] in Blood by Automated count 1.8-7.7 [facility] Neutrophils/100 WBC Auto (Bl d)Ordered By: Griselda Hastings on 10-07-2024 Neutrophils/100 WBC (Bld) Automated neutrophil % . [facility] No Panel InformationOrdered By: Griselda Hastings on 10-07-2024 Estimated GFR (CKD-EPI) > 60.0 mL/Min [facility] Creatinine Clearance (Chem N/A [facility] Nucleated erythrocytes [Pres ence] in Blood by Automated countOrdered By: Griselda Hastings on 10-07-2024 Nucleated RBC Auto Ql (Bld) Nucleated erythrocytes [Presence] in Blood by Automated count 0-0.5 [facility] PSA Screen (Yearly Only)on 0 10-07-2024 PSA Screen (Yearly Only) 0.670 ng/mL Normal 0.000-4.00 0 [facility] Comment on above: Result Comment: Seri al tumor marker results determined by assays using different manufacturers or methods may not be comparable. [facility] asphalt layer and method: [employer] DXI, CHEMILUMINESCENT IMMUNOASSAY. PERFORMED BY: [place] [address] PATHOLOGIST ENGINEER OF SYSTEM DEVELOPMENT RAKEL LAZARO M.D. Performed By: #### C BC, HEPATIC, BMP, LIPASE #### [address] Platelet mean volume Auto (B ld) [Entitic vol]Ordered By: Griselda Hastings on 10-07-2024 Platelet mean volume (Bld) [Entitic vol] Platelet mean volume [Entitic volume] in Blood by Automated count 6.6-10.1 [facility] Platelets Auto (Bld) [#/Vol] Ordered By: Griselda Hastings on 10-07-2024 Platelets (Bld) [#/Vol] Platelets [#/volume] in Blood by Automated count 150-450 [facility] Potassium [Moles/volume] in Serum or PlasmaOrdered By: Griselda Hastings on 10-07-2024 Potassium [Moles/Vol] Potassium [Moles/v olume] in Serum or Plasma 3.5-5.1 [facility] Prostate specific Ag [Mass/v olume] in Serum or PlasmaOrdered By: Griselda Hastings on 10-07-2024 Prostate specific Ag [Mass/Vol] Prostate specific Ag [Mass/volume] in Serum or Plasma 0.000-4.00 0 [facility] Comment on above: Serial tumor marker results determined by assays using different manufacturers or methods may not be comparable.[facility] asphalt layer and method:[employer] DXI, CHEMILUMINESCENT IMMUNOASSAY. Protein [Mass/volume] in Ser um or PlasmaOrdered By: Griselda Hastings on 10-07-2024 Protein [Mass/Vol] Protein [Mass/volume ] in Serum or Plasma Low 6.4-8.9 [facility] RBC Auto (Bld) [#/Vol]Ordere d By: Griselda Hastings on 10-07-2024 RBC (Bld) [#/Vol] Erythrocytes [#/volu me] in Blood by Automated count 3.90-5.60 [facility] Serum or plasma albumin/glob ulin mass ratioOrdered By: Griselda Hastings on 10-07-2024 Albumin/Globulin [Mass ratio] Serum or plasma albumin/globulin mass ratio [facility] Serum or plasma anion gap de terminationOrdered By: Griselda Hastings on 10-07-2024 Anion gap [Moles/Vol] Serum or plasma an ion gap determination 6.0-15.0 [facility] Serum or plasma total choles terol/high density lipoprotein (HDL) cholesterol mass ratOrdered By: Griselda Hastings on 10-07-2024 Cholesterol.total/Chol esterol in HDL [Mass ratio] Serum or plasma total cholesterol/high density lipoprotein (HDL) cholesterol mass rat <5.0 [facility] Sodium [Moles/volume] in Ser um or PlasmaOrdered By: Griselda Hastings on 10-07-2024 Sodium [Moles/Vol] Sodium [Moles/volume ] in Serum or Plasma 136-145 [facility] Thyroid Stimulating Hormoneo n 10-07-2024 TSH Qn 1.03 m[IU]/L Normal 0.45-5.33 [facility] Comment on above: Result Comment: PERF ORMED BY: [place] [address] PATHOLOGIST ENGINEER OF SYSTEM DEVELOPMENT RAKEL LAZARO M.D. Performed By: #### C BC, HEPATIC, BMP, LIPASE #### [address] Thyrotropin [Units/volume] i n Serum or PlasmaOrdered By: Griselda Hastings on 10-07-2024 TSH Qn Thyrotropin [Units/volume] in Serum or Plasma 0.45-5.33 [facility] Triglyceride [Mass/volume] i n Serum or PlasmaOrdered By: Griselda Hastings on 10-07-2024 Triglyceride [Mass/Vol] Triglyceride [Mass/volume] in Serum or Plasma 0-149 [facility] Comment on above: TRIG ATP III CLASSIF ICATIONTRIG less than 150 mg/dL NormalTRIG 150-199 mg/dL Borderline highTRIG 200-500 mg/dL High TRIG greater than 500 mg/dL Very highStandard traceable to the Center for Disease Conrtrol and Prevention (CDC) test method. Urea nitrogen [Mass/volume] in Serum or PlasmaOrdered By: Griselda Hastings on 10-07-2024 Urea nitrogen [Mass/Vol] Urea nitrogen [Mass/volume] in Serum or Plasma 7- [facility] WBC Auto (Bld) [#/Vol]Ordere d By: Griselda Hastings on 10-07-2024 WBC (Bld) [#/Vol] Leukocytes [#/volume ] in Blood by Automated count 4.1-10.5 [facility] Alanine aminotransferase [En zymatic activity/volume] in Serum or PlasmaOrdered By: PROVIDER TEMP on 10-06-2024 ALT [Catalytic activity/Vol] Alanine aminotransferase [Enzymatic activity/volume] in Serum or Plasma 7-52 [facility] Albumin [Mass/volume] in Ser um or Plasma by Bromocresol green (BCG) dye binding methoOrdered By: PROVIDER TEMP on 10-06-2024 Albumin BCG dye [Mass/Vol] Albumin [Mass/volume] in Serum or Plasma by Bromocresol green (BCG) dye binding metho 3.5-5.7 [facility] Alkaline phosphatase [Enzyma tic activity/volume] in Serum or PlasmaOrdered By: PROVIDER TEMP on 10-06-2024 ALP [Catalytic activity/Vol] Alkaline phosphatase [Enzymatic activity/volume] in Serum or Plasma 34-104 [facility] Appearance of UrineOrdered B y: Manisha Negron on 10-06-2024 Appearance (U) Urine appearance Clear [facility] Aspartate aminotransferase [ Enzymatic activity/volume] in Serum or PlasmaOrdered By: PROVIDER TEMP on 10-06-2024 AST [Catalytic activity/Vol] Aspartate aminotransferase [Enzymatic activity/volume] in Serum or Plasma Low 13-39 [facility] Bacteria [Presence] in Urine by AutomatedOrdered By: Manisha Negron on 10-06-2024 Bacteria Auto Ql (U) Bacteria [Presence] in Urine by Automated None Seen [facility] Basic Metabolic Panelon 09-17 Anion gap [Moles/Vol] 8.5 mmol/L Normal 6.0-15.0 [facility] Comment on above: Performed By: #### C BC, HEPATIC, BMP, LIPASE #### [address] Calcium [Mass/Vol] 9.5 mg/dL Normal 8.6-10.3 [facility] Comment on above: Performed By: #### C BC, HEPATIC, BMP, LIPASE #### [address] Chloride [Moles/Vol] 104 mmol/L Normal 98-107 [facility] Comment on above: Performed By: #### C BC, HEPATIC, BMP, LIPASE #### [address] CO2 [Moles/Vol] 28.3 mmol/L Normal 21.0-31.0 [facility] Comment on above: Performed By: #### C BC, HEPATIC, BMP, LIPASE #### [address] Creatinine [Mass/Vol] 0.82 mg/dL Normal 0.70-1.30 [facility] Comment on above: Performed By: #### C BC, HEPATIC, BMP, LIPASE #### [address] Creatinine Clr Calc Pharmacy 91.52 Normal [facility] Comment on above: Performed By: #### C BC, HEPATIC, BMP, LIPASE #### [place] [address] [place] GFR/1.73 sq M.predicted MDRD (S/P/Bld) [Vol rate/Area] mL/min/{1.73_m2} Normal [facility] Comment on above: Performed By: #### C BC, HEPATIC, BMP, LIPASE #### [place] [address] [place] Glucose [Mass/Vol] 86 mg/dL Normal 70-100 [facility] Comment on above: Result Comment: Paia Glucose Reference Range is dependent on time and content of last meal. Glucose of more than 200 mg/dL in a nonstressed, ambulatory subject supports the diagnosis of Diabetes Mellitus. ADA recommended reference range Performed By: #### C BC, HEPATIC, BMP, LIPASE #### [facility] [address] Potassium [Moles/Vol] 4.8 mmol/L Normal 3.5-5.1 [facility] Comment on above: Performed By: #### C BC, HEPATIC, BMP, LIPASE #### [facility] [address] Sodium [Moles/Vol] 136 mmol/L Normal 136-145 [facility] Comment on above: Performed By: #### C BC, HEPATIC, BMP, LIPASE #### [facility] [address] Urea nitrogen [Mass/Vol] 9 mg/dL Normal 7-25 [facility] Comment on above: Performed By: #### C BC, HEPATIC, BMP, LIPASE #### [facility] [address] Basophils Auto (Bld) [#/Vol] Ordered By: PROVIDER TEMP on 10-06-2024 Basophils (Bld) [#/Vol] Automated basophil count 0.0-0.2 [facility] Basophils/100 WBC Auto (Bld) Ordered By: PROVIDER TEMP on 10-06-2024 Basophils/100 WBC (Bld) Automated basophil % . [facility] Bilirubin Test strip Ql (U)O rdered By: Manisha Negron on 10-06-2024 Bilirubin Ql (U) Bilirubin.total [Presence] in Urine by Test strip Negative [facility] Bilirubin.direct [Mass/volum e] in Serum or PlasmaOrdered By: PROVIDER TEMP on 10-06-2024 Bilirubin.direct [Mass/Vol] Bilirubin.direct [Mass/volume] in Serum or Plasma 0.03-0.18 [facility] Bilirubin.total [Mass/volume ] in Serum or PlasmaOrdered By: PROVIDER TEMP on 10-06-2024 Bilirubin [Mass/Vol] Bilirubin.total [Mass/volume] in Serum or Plasma 0.3-1.0 [facility] CT abdomen pelvis w conon CT abdomen pelvis w con [facility] [place] [address] [place] [address] CT Scan Report Signed Patient: Shantel Melendez MR#: [id number] : 1960 Acct:[id number] Age/Sex: 63 / M ADM Date: 10/06/24 Loc: ER Room: Type: [facility] ER Attending Dr: Copies to: Manisha [...] Dorothy Eubanks M.D.10/06/2024 4:08 PM Dictation Location: [place] [address] Transcribed By: [facility] 10/06/24 1608 Dictated By: Dorothy Eubanks MD 10/06/24 1556 Signed By: 10/06/24 1608 Normal [facility] CT soft tissue neck w conon 10-06-2024 CT soft tissue neck w con [facility] [place] [address] [place] [address] CT Scan Report Signed Patient: Shantel Melendez MR#: [id number] : 1960 Acct:[id number] Age/Sex: 63 / M ADM Date: 10/06/24 Loc: ER Room: Type: [facility] ER Attending Dr: Copies to: Manisha [...] Dorothy Eubanks M.D.10/06/2024 3:56 PM Dictation Location: [place] [address] Transcribed By: MARISA 10/06/24 1556 Dictated By: Dorothy Eubanks MD 10/06/24 155 Signed By: 10/06/24 155 Normal [facility] Calcium [Mass/volume] in Ser um or PlasmaOrdered By: PROVIDER TEMP on 10-06-2024 Calcium [Mass/Vol] Calcium [Mass/volume ] in Serum or Plasma 8.6-10.3 [facility] Carbon dioxide, total [Moles /volume] in Serum or PlasmaOrdered By: PROVIDER TEMP on 10-06-2024 CO2 [Moles/Vol] Carbon dioxide, tota l [Moles/volume] in Serum or Plasma 21.0-31.0 [facility] Chloride [Moles/volume] in S r[place] or PlasmaOrdered By: PROVIDER TEMP on 10-06-2024 Chloride [Moles/Vol] Chloride [Moles/vol ume] in Serum or Plasma 98-107 [facility] Color Auto (U)Ordered By: Braeden Negron on 10-06-2024 Color (U) Color of Urine by Auto Yellow Fi [facility] Complete Blood Count Auto Di ffon 10-06-2024 Basophils (Bld) [#/Vol] 0.1 10*3/uL Normal 0.0-0.2 [facility] Comment on above: Result Comment: PERF ORMED BY: [facility] [address] [place] [address] PATHOLOGIST ENGINEER OF SYSTEM DEVELOPMENT RAKEL LAZARO M.D. Performed By: #### C BC, HEPATIC, BMP, LIPASE #### [address] Basophils/100 WBC (Bld) 1.1 % Normal . [facility] Comment on above: Performed By: #### C BC, HEPATIC, BMP, LIPASE #### [address] Eosinophils (Bld) [#/Vol] 0.1 10*3/uL Normal 0.0-0.45 [facility] Comment on above: Performed By: #### C BC, HEPATIC, BMP, LIPASE #### [address] Eosinophils/100 WBC (Bld) 0.9 % Normal . [facility] Comment on above: Performed By: #### C BC, HEPATIC, BMP, LIPASE #### [address] Erythrocyte distribution width (RBC) [Ratio] 13.7 % Normal 12.0-14.8 [facility] Comment on above: Performed By: #### C BC, HEPATIC, BMP, LIPASE #### [address] Hematocrit (Bld) [Volume fraction] 37.0 % Low 38.8-50.0 [facility] Comment on above: Performed By: #### C BC, HEPATIC, BMP, LIPASE #### [address] Hemoglobin (Bld) [Mass/Vol] 12.8 g/dL Low 13.0-17.0 [facility] Comment on above: Performed By: #### C BC, HEPATIC, BMP, LIPASE #### [address] Lymphocytes (Bld) [#/Vol] 2.0 10*3/uL Normal 1.00-4.8 [facility] Comment on above: Performed By: #### C BC, HEPATIC, BMP, LIPASE #### [address] Lymphocytes/100 WBC (Bld) 28.2 % Normal . [facility] Comment on above: Performed By: #### C BC, HEPATIC, BMP, LIPASE #### [address] MCH (RBC) [Entitic mass] 32.0 pg Normal 27.5-35.2 [facility] Comment on above: Performed By: #### C BC, HEPATIC, BMP, LIPASE #### [address] MCV (RBC) [Entitic vol] 92.6 fL Normal 83.5-101 [facility] Comment on above: Performed By: #### C BC, HEPATIC, BMP, LIPASE #### [address] Mean Corpuscular HGB Conc 34.6 g/dL Normal 32.5-35.6 [facility] Comment on above: Performed By: #### C BC, HEPATIC, BMP, LIPASE #### [address] Monocytes (Bld) [#/Vol] 0.4 10*3/uL Normal 0.0-0.8 [facility] Comment on above: Performed By: #### C BC, HEPATIC, BMP, LIPASE #### [address] Monocytes/100 WBC (Bld) 17.04 % Normal 0.00-20.00 [facility] Comment on above: Performed By: #### C BC, HEPATIC, BMP, LIPASE #### [place] [address] [place] Monocytes/100 WBC (Bld) 5.4 % Normal . [facility] Comment on above: Performed By: #### C BC, HEPATIC, BMP, LIPASE #### [address] Neutrophils (Bld) [#/Vol] 4.7 10*3/uL Normal 1.8-7.7 [facility] Comment on above: Performed By: #### C BC, HEPATIC, BMP, LIPASE #### [facility] [address] Neutrophils/100 WBC (Bld) 64.4 % Normal . [facility] Comment on above: Performed By: #### C BC, HEPATIC, BMP, LIPASE #### [facility] [address] NRBC% 0.1 /100{WBC} Normal 0-0.5 [facility] Comment on above: Performed By: #### C BC, HEPATIC, BMP, LIPASE #### [facility] [address] Platelet mean volume (Bld) [Entitic vol] 8.4 fL Normal 6.6-10.1 [facility] Comment on above: Performed By: #### C BC, HEPATIC, BMP, LIPASE #### [address] Platelets (Bld) [#/Vol] 357 10*3/uL Normal 150-450 [facility] Comment on above: Performed By: #### C BC, HEPATIC, BMP, LIPASE #### [address] RBC (Bld) [#/Vol] 3.99 10*6/uL Normal 3.90-5.60 [facility] Comment on above: Performed By: #### C BC, HEPATIC, BMP, LIPASE #### [address] WBC (Bld) [#/Vol] 7.2 10*3/uL Normal 4.1-10.5 [facility] Comment on above: Performed By: #### C BC, HEPATIC, BMP, LIPASE #### [address] Creatinine [Mass/volume] in Serum or PlasmaOrdered By: PROVIDER TEMP on 10-06-2024 Creatinine [Mass/Vol] Creatinine [Mass/v olume] in Serum or Plasma 0.70-1.30 [facility] Dipstick and Microscopicon 0 10-06-2024 Appearance (U) Clear Normal Clear [facility] Comment on above: Order Comment: Name Collection Type:: Clean-Voided Midstream Performed By: #### C BC, HEPATIC, BMP, LIPASE #### [facility] [address] Bacteria,Urine None Seen Normal None Seen [facility] Comment on above: Order Comment: Name Collection Type:: Clean-Voided Midstream Performed By: #### C BC, HEPATIC, BMP, LIPASE #### [facility] [address] Bilirubin,Urine Negative Normal Negative [facility] Comment on above: Order Comment: Name Collection Type:: Clean-Voided Midstream Performed By: #### C BC, HEPATIC, BMP, LIPASE #### [address] Color (U) Yellow Normal Yellow [facility] Comment on above: Order Comment: Name Collection Type:: Clean-Voided Midstream Performed By: #### C BC, HEPATIC, BMP, LIPASE #### [address] Glucose Ql (U) Normal Normal Normal [facility] Comment on above: Order Comment: Name Collection Type:: Clean-Voided Midstream Performed By: #### C BC, HEPATIC, BMP, LIPASE #### [facility] [address] [place] [address] [place] Hyaline Casts,Urine None Normal 0-8 [facility] Comment on above: Order Comment: Name Collection Type:: Clean-Voided Midstream Performed By: #### C BC, HEPATIC, BMP, LIPASE #### [facility] [address] [place] [address] [place] Ketones Ql (U) Negative Normal Negative [facility] Comment on above: Order Comment: Name Collection Type:: Clean-Voided Midstream Performed By: #### C BC, HEPATIC, BMP, LIPASE #### [address] Leukocyte esterase Test strip Ql (U) Negative Normal Negative [facility] Comment on above: Order Comment: Name Collection Type:: Clean-Voided Midstream Performed By: #### C BC, HEPATIC, BMP, LIPASE #### [address] Mucus,Urine Rare Normal [facility] Comment on above: Order Comment: Name Collection Type:: Clean-Voided Midstream Result Comment: PERF ORMED BY: [place] [address] PATHOLOGIST ENGINEER OF SYSTEM DEVELOPMENT RAKEL LAZARO M.D. Performed By: #### C BC, HEPATIC, BMP, LIPASE #### [address] Nitrite,Urine Negative Normal Negative [facility] Comment on above: Order Comment: Name Collection Type:: Clean-Voided Midstream Performed By: #### C BC, HEPATIC, BMP, LIPASE #### [address] Occult Blood,Urine Trace High Negative [facility] Comment on above: Order Comment: Name Collection Type:: Clean-Voided Midstream Result Comment: PERF ORMED BY: [place] [address] PATHOLOGIST ENGINEER OF SYSTEM DEVELOPMENT RAKEL LAZARO M.D. Performed By: #### C BC, HEPATIC, BMP, LIPASE #### [address] pH (U) 5.5 [pH] Normal 5.0-9.0 [facility] Comment on above: Order Comment: Name Collection Type:: Clean-Voided Midstream Performed By: #### C BC, HEPATIC, BMP, LIPASE #### [address] Protein,Urine Negative Normal Negative [facility] Comment on above: Order Comment: Name Collection Type:: Clean-Voided Midstream Performed By: #### C BC, HEPATIC, BMP, LIPASE #### [address] RBC,Urine 1-2 Normal 0-4 [facility] Comment on above: Order Comment: Name Collection Type:: Clean-Voided Midstream Performed By: #### C BC, HEPATIC, BMP, LIPASE #### [facility] [address] Specificy [place],Urine >1.050 High 1.001-1.03 0 [facility] Comment on above: Order Comment: Name Collection Type:: Clean-Voided Midstream Performed By: #### C BC, HEPATIC, BMP, LIPASE #### [facility] [address] Squamous Epithelial Cell,Urine 1-2 Normal 0-2 [facility] Comment on above: Order Comment: Name Collection Type:: Clean-Voided Midstream Performed By: #### C BC, HEPATIC, BMP, LIPASE #### [address] Urobilinogen,Urine Normal Normal Normal [facility] Comment on above: Order Comment: Name Collection Type:: Clean-Voided Midstream Performed By: #### C BC, HEPATIC, BMP, LIPASE #### [address] WBC,Urine 1-2 Normal 0-4 [facility] Comment on above: Order Comment: Name Collection Type:: Clean-Voided Midstream Performed By: #### C BC, HEPATIC, BMP, LIPASE #### [address] ECG 12 lead ECGon 10-06-2024 ECG 12 lead ECG [facility] [place] [address] [place] [address] Electrocardiograph Report Signed Patient: Shantel Melendez MR#: [id number] : 1960 Acct:[id number] Age/Sex: 63 / M ADM Date: 10/06/24 Loc: ER Room: Type: [facility] ER Attending Dr: Ordering Provider: Manisha [...] now present Confirmed by Duke Kaufman DO ([id number]) on 10/06/2024 7:36:01 PM Referred By: Electronically Signed By: Duke Kaufman DO Transcribed By: MUS Signed By Duke Kaufman DO 1935 Normal [facility] Eosinophils Auto (Bld) [#/Vo l]Ordered By: PROVIDER TEMP on 10-06-2024 Eosinophils (Bld) [#/Vol] Automated eosinophil count 0.0-0.45 [facility] Eosinophils/100 WBC Auto (Bl d)Ordered By: PROVIDER TEMP on 10-06-2024 Eosinophils/100 WBC (Bld) Automated eosinophil % . [facility] Epithelial cells.squamous [# /area] in Urine sediment by Automated countOrdered By: Manisha Negron on 10-06-2024 Epithelial cells.squamous Auto (Urine sed) [#/Area] Epithelial cells.squamous [#/area] in Urine sediment by Automated count 0-2 [facility] Erythrocyte distribution wid th Auto (RBC) [Ratio]Ordered By: PROVIDER TEMP on 10-06-2024 Erythrocyte distribution width (RBC) [Ratio] Erythrocyte distribution width [Ratio] by Automated count 12.0-14.8 [facility] Erythrocytes [#/area] in Uri ne sediment by Automated countOrdered By: Manisha Negron on 10-06-2024 RBC Auto (Urine sed) [#/Area] Erythrocytes [#/area] in Urine sediment by Automated count 0-4 [facility] Globulin Calc (S) [Mass/Vol] Ordered By: PROVIDER TEMP on 10-06-2024 Globulin (S) [Mass/Vol] Serum globulin measurement by calculation (mass/volume) [facility] Glucose [Mass/volume] in Ser um or PlasmaOrdered By: PROVIDER TEMP on 10-06-2024 Glucose [Mass/Vol] Glucose [Mass/volume ] in Serum or Plasma 70-100 [facility] Comment on above: ADA recommended refe renjany rangeRandom Glucose Reference Range is dependent on time and content of last meal. Glucose of more than 200 mg/dL in a nonstressed, ambulatory subject supports the diagnosis of Diabetes Mellitus. Glucose [Mass/volume] in Uri ne by Test stripOrdered By: Manisha Negron on 10-06-2024 Glucose Test strip (U) [Mass/Vol] Glucose [Mass/volume] in Urine by Test strip Normal [facility] Hematocrit Auto (Bld) [Volum e fraction]Ordered By: PROVIDER TEMP on 10-06-2024 Hematocrit (Bld) [Volume fraction] Hematocrit [Volume Fraction] of Blood by Automated count Low 38.8-50.0 [facility] Hemoglobin Test strip Ql (U) Ordered By: Manisha Negron on 10-06-2024 Hemoglobin Ql (U) Hemoglobin [Presence ] in Urine by Test strip High Negative [facility] Hemoglobin [Mass/volume] in BloodOrdered By: PROVIDER TEMP on 10-06-2024 Hemoglobin (Bld) [Mass/Vol] Hemoglobin [Mass/volume] in Blood Low 13.0-17.0 [facility] Hepatic Panelon 10-06-2024 Albumin [Mass/Vol] 3.6 g/dL Normal 3.5-5.7 [facility] Comment on above: Performed By: #### C BC, HEPATIC, BMP, LIPASE #### [address] Albumin/Globulin [Mass ratio] 1.4 {ratio} Normal [facility] Comment on above: Performed By: #### C BC, HEPATIC, BMP, LIPASE #### [facility] [address] ALP [Catalytic activity/Vol] 63 U/L Normal 34-104 [facility] Comment on above: Performed By: #### C BC, HEPATIC, BMP, LIPASE #### [facility] [address] [place] [address] [place] ALT [Catalytic activity/Vol] 7 U/L Normal 7-52 [facility] Comment on above: Performed By: #### C BC, HEPATIC, BMP, LIPASE #### [facility] [address] AST [Catalytic activity/Vol] 8 U/L Low 13-39 [facility] Comment on above: Performed By: #### C BC, HEPATIC, BMP, LIPASE #### [facility] [address] Bilirubin [Mass/Vol] 0.6 mg/dL Normal 0.3-1.0 [facility] Comment on above: Performed By: #### C BC, HEPATIC, BMP, LIPASE #### [address] Bilirubin,Indirect 0.5 mg/dL Normal [facility] Comment on above: Performed By: #### C BC, HEPATIC, BMP, LIPASE #### [address] Bilirubin.indirect [Mass/Vol] 0.10 mg/dL Normal 0.03-0.18 [facility] Comment on above: Performed By: #### C BC, HEPATIC, BMP, LIPASE #### [address] Globulin (S) [Mass/Vol] 2.5 g/dL Normal [facility] Comment on above: Performed By: #### C BC, HEPATIC, BMP, LIPASE #### [address] Protein [Mass/Vol] 6.1 g/dL Low 6.4-8.9 [facility] Comment on above: Performed By: #### C BC, HEPATIC, BMP, LIPASE #### [place] [address] [place] Hyaline casts [#/area] in Ur ine sediment by Automated countOrdered By: Manisha Negron on 10-06-2024 Hyaline casts Auto (Urine sed) [#/Area] Hyaline casts [#/area] in Urine sediment by Automated count 0-8 [facility] Ketones Test strip Ql (U)Ord ered By: Manisha Negron on 10-06-2024 Ketones Ql (U) Ketones [Presence] i n Urine by Test strip Negative [facility] Leukocyte esterase [Presence ] in Urine by Test stripOrdered By: Manisha Negron on 10-06-2024 Leukocyte esterase Test strip Ql (U) Leukocyte esterase [Presence] in Urine by Test strip Negative [facility] Leukocytes [#/area] in Urine sediment by Automated countOrdered By: Manisha Negron on 10-06-2024 WBC Auto (Urine sed) [#/Area] Leukocytes [#/area] in Urine sediment by Automated count 0-4 [facility] Leukocytes [#/volume] correc mone for nucleated erythrocytes in Blood by Automated counOrdered By: PROVIDER TEMP on 10-06-2024 WBC corrected for nucl RBC Auto (Bld) [#/Vol] Leukocytes [#/volume] corrected for nucleated erythrocytes in Blood by Automated coun 4.1-10.5 [facility] Lipaseon 10-06-2024 Lipase [Catalytic activity/Vol] 11.0 U/L Normal 11.0-82.0 [facility] Comment on above: Result Comment: PERF ORMED BY: [place] [address] PATHOLOGIST ENGINEER OF SYSTEM DEVELOPMENT RAKEL LAZARO M.D. Performed By: #### C BC, HEPATIC, BMP, LIPASE #### [address] Lipase [Enzymatic activity/v olume] in Serum or PlasmaOrdered By: PROVIDER TEMP on 10-06-2024 Lipase [Catalytic activity/Vol] Lipase [Enzymatic activity/volume] in Serum or Plasma 11.0-82.0 [facility] Lymphocytes Auto (Bld) [#/Vo l]Ordered By: PROVIDER TEMP on 10-06-2024 Lymphocytes (Bld) [#/Vol] Lymphocytes [#/volume] in Blood by Automated count 1.00-4.8 [facility] Lymphocytes/100 WBC Auto (Bl d)Ordered By: PROVIDER TEMP on 10-06-2024 Lymphocytes/100 WBC (Bld) Lymphocytes/100 leukocytes in Blood by Automated count . [facility] MCH Auto (RBC) [Entitic mass ]Ordered By: PROVIDER TEMP on 10-06-2024 MCH (RBC) [Entitic mass] MCH [Entitic mass] by Automated count 27.5-35.2 [facility] MCHC Auto (RBC) [Mass/Vol]Or dered By: PROVIDER TEMP on 10-06-2024 MCHC (RBC) [Mass/Vol] MCHC [Mass/volume] by Automated count 32.5-35.6 [facility] MCV Auto (RBC) [Entitic vol] Ordered By: PROVIDER TEMP on 10-06-2024 MCV (RBC) [Entitic vol] MCV [Entitic volume] by Automated count 83.5-101 [facility] Monocyte distribution width [Entitic volume] in Blood by AutomatedOrdered By: PROVIDER TEMP on 10-06-2024 Monocyte distribution width Auto (Bld) [Entitic vol] Monocyte distribution width [Entitic volume] in Blood by Automated 0.00-20.00 [facility] Monocytes Auto (Bld) [#/Vol] Ordered By: PROVIDER TEMP on 10-06-2024 Monocytes (Bld) [#/Vol] Automated blood monocyte count 0.0-0.8 [facility] Monocytes/100 WBC Auto (Bld) Ordered By: PROVIDER TEMP on 10-06-2024 Monocytes/100 WBC (Bld) Automated monocyte % . [facility] Mucus [Presence] in Urine by AutomatedOrdered By: Manisha Negron on 10-06-2024 Mucus Auto Ql (U) Mucus [Presence] in Urine by Automated [facility] Neutrophils Auto (Bld) [#/Vo l]Ordered By: PROVIDER TEMP on 10-06-2024 Neutrophils (Bld) [#/Vol] Neutrophils [#/volume] in Blood by Automated count 1.8-7.7 [facility] Neutrophils/100 WBC Auto (Bl d)Ordered By: PROVIDER TEMP on 10-06-2024 Neutrophils/100 WBC (Bld) Automated neutrophil % . [facility] Nitrite Test strip Ql (U)Ord ered By: Manisha Negron on 10-06-2024 Nitrite Ql (U) Nitrite [Presence] i n Urine by Test strip Negative [facility] No Panel InformationOrdered By: PROVIDER TEMP on 10-06-2024 Estimated GFR (CKD-EPI) > 60.0 mL/Min [facility] Creatinine Clearance (Chem 91.52 [facility] Nucleated erythrocytes [Pres ence] in Blood by Automated countOrdered By: PROVIDER TEMP on 10-06-2024 Nucleated RBC Auto Ql (Bld) Nucleated erythrocytes [Presence] in Blood by Automated count 0-0.5 [facility] Platelet mean volume Auto (B ld) [Entitic vol]Ordered By: PROVIDER TEMP on 10-06-2024 Platelet mean volume (Bld) [Entitic vol] Platelet mean volume [Entitic volume] in Blood by Automated count 6.6-10.1 [facility] Platelets Auto (Bld) [#/Vol] Ordered By: PROVIDER TEMP on 10-06-2024 Platelets (Bld) [#/Vol] Platelets [#/volume] in Blood by Automated count 150-450 [facility] Potassium [Moles/volume] in Serum or PlasmaOrdered By: PROVIDER TEMP on 10-06-2024 Potassium [Moles/Vol] Potassium [Moles/v olume] in Serum or Plasma 3.5-5.1 [facility] Protein Test strip (U) [Mass /Vol]Ordered By: Manisha Negron on 10-06-2024 Protein (U) [Mass/Vol] Protein [Mass/vol ume] in Urine by Test strip Negative [facility] Protein [Mass/volume] in Ser um or PlasmaOrdered By: PROVIDER TEMP on 10-06-2024 Protein [Mass/Vol] Protein [Mass/volume ] in Serum or Plasma Low 6.4-8.9 [facility] RBC Auto (Bld) [#/Vol]Ordere d By: PROVIDER TEMP on 10-06-2024 RBC (Bld) [#/Vol] Erythrocytes [#/volu me] in Blood by Automated count 3.90-5.60 [facility] Serum or plasma albumin/glob ulin mass ratioOrdered By: PROVIDER TEMP on 10-06-2024 Albumin/Globulin [Mass ratio] Serum or plasma albumin/globulin mass ratio [facility] Serum or plasma anion gap de terminationOrdered By: PROVIDER TEMP on 10-06-2024 Anion gap [Moles/Vol] Serum or plasma an ion gap determination 6.0-15.0 [facility] Serum or plasma non-glucuron idated bilirubin measurement (mass/volume)Ordered By: PROVIDER TEMP on 10-06-2024 Bilirubin.indirect [Mass/Vol] Serum or plasma non-glucuronidated bilirubin measurement (mass/volume) [facility] Sodium [Moles/volume] in Ser um or PlasmaOrdered By: PROVIDER TEMP on 10-06-2024 Sodium [Moles/Vol] Sodium [Moles/volume ] in Serum or Plasma 136-145 [facility] Specific gravity Test strip (U) [Rel density]Ordered By: Manisha Negron on 10-06-2024 Specific gravity (U) [Rel density] Specific gravity of Urine by Test strip High 1.001-1.03 0 [facility] Urea nitrogen [Mass/volume] in Serum or PlasmaOrdered By: PROVIDER TEMP on 10-06-2024 Urea nitrogen [Mass/Vol] Urea nitrogen [Mass/volume] in Serum or Plasma 7-25 [facility] Urobilinogen Test strip (U) [Mass/Vol]Ordered By: Manisha Negron on 10-06-2024 Urobilinogen (U) [Mass/Vol] Urobilinogen [Mass/volume] in Urine by Test strip Normal [facility] WBC Auto (Bld) [#/Vol]Ordere d By: PROVIDER TEMP on 10-06-2024 WBC (Bld) [#/Vol] Leukocytes [#/volume ] in Blood by Automated count 4.1-10.5 [facility] pH Test strip (U)Ordered By: Manisha Negron on 10-06-2024 pH (U) pH of Urine by Test strip 5.0-9.0 [facility] B-Type Natriuretic Peptideon 09-20-2024 Natriuretic peptide B (Bld) [Mass/Vol] 43.0 pg/mL Normal 5-100 [facility] Comment on above: Result Comment: PERF ORMED BY: [facility] [address] [place] [address] PATHOLOGIST ENGINEER OF SYSTEM DEVELOPMENT RAKEL LAZARO M.D. Performed By: #### H S TROP #### [address] Basic Metabolic Panelon 04-0 Anion gap [Moles/Vol] 11.2 mmol/L Normal 6.0-15.0 [facility] Comment on above: Performed By: #### C BC, BMP, HS TROP, BNP #### [address] Calcium [Mass/Vol] 9.3 mg/dL Normal 8.6-10.3 [facility] Comment on above: Performed By: #### C BC, BMP, HS TROP, BNP #### [address] Chloride [Moles/Vol] 100 mmol/L Normal 98-107 [facility] Comment on above: Performed By: #### C BC, BMP, HS TROP, BNP #### [address] CO2 [Moles/Vol] 26.0 mmol/L Normal 21.0-31.0 [facility] Comment on above: Performed By: #### C BC, BMP, HS TROP, BNP #### [place] [address] [place] Creatinine [Mass/Vol] 0.91 mg/dL Normal 0.70-1.30 [facility] Comment on above: Performed By: #### C BC, BMP, HS TROP, BNP #### [place] [address] [place] Creatinine Clr Calc Pharmacy 82.47 Normal [facility] Comment on above: Result Comment: PERF ORMED BY: [place] [address] PATHOLOGIST ENGINEER OF SYSTEM DEVELOPMENT RAKEL LAZARO M.D. Performed By: #### C BC, BMP, HS TROP, BNP #### [place] [address] [place] GFR/1.73 sq M.predicted MDRD (S/P/Bld) [Vol rate/Area] mL/min/{1.73_m2} Normal [facility] Comment on above: Performed By: #### C BC, BMP, HS TROP, BNP #### [address] Glucose [Mass/Vol] 100 mg/dL Normal 70-100 [facility] Comment on above: Result Comment: [facility] Glucose Reference Range is dependent on time and content of last meal. Glucose of more than 200 mg/dL in a nonstressed, ambulatory subject supports the diagnosis of Diabetes Mellitus. ADA recommended reference range Performed By: #### C BC, BMP, HS TROP, BNP #### [address] Potassium [Moles/Vol] 4.2 mmol/L Normal 3.5-5.1 [facility] Comment on above: Performed By: #### C BC, BMP, HS TROP, BNP #### [address] Sodium [Moles/Vol] 133 mmol/L Low 136-145 [facility] Comment on above: Performed By: #### C BC, BMP, HS TROP, BNP #### [address] Urea nitrogen [Mass/Vol] 18 mg/dL Normal 7-25 [facility] Comment on above: Performed By: #### C BC, BMP, HS TROP, BNP #### [place] [address] [place] Basophils Auto (Bld) [#/Vol] Ordered By: Daisy Paul on 09-20-2024 Basophils (Bld) [#/Vol] Automated basophil count 0.0-0.2 [facility] Basophils/100 WBC Auto (Bld) Ordered By: Daisy Paul on 09-20-2024 Basophils/100 WBC (Bld) Automated basophil % . [facility] BioFire Not Detectedon 09-20 BioFire Not Detected Not detected Normal Not Detecte [facility] Comment on above: Result Comment: This is a duplicate RP2.1 COVID (PCR) result to be used for statistical tracking purpose only. PERFORMED BY: [address] [address] PATHOLOGIST ENGINEER OF SYSTEM DEVELOPMENT RAKEL LAZARO M.D. Performed By: #### H S TROP #### [facility] [address] [place], [place] [address] COVID-19 Detected/Not Detect edOrdered By: Daisy Paul on 09-20-2024 SARS-CoV-2 (COVID-19) RNA JER+non-probe Ql (Nph) Not detected Not Detecte [facility] Comment on above: This is a duplicate RP2.1 COVID (PCR) result to be used for statistical tracking purpose only. Calcium [Mass/volume] in Ser um or PlasmaOrdered By: Daisy Paul on 09-20-2024 Calcium [Mass/Vol] Calcium [Mass/volume ] in Serum or Plasma 8.6-10.3 [facility] Carbon dioxide, total [Moles /volume] in Serum or PlasmaOrdered By: Daisy Paul on 09-20-2024 CO2 [Moles/Vol] Carbon dioxide, tota l [Moles/volume] in Serum or Plasma 21.0-31.0 [facility] Chloride [Moles/volume] in S r[place] or PlasmaOrdered By: Daisy Paul on 09-20-2024 Chloride [Moles/Vol] Chloride [Moles/vol ume] in Serum or Plasma 98-107 [facility] Complete Blood Count Auto Di ffon 09-20-2024 Basophils (Bld) [#/Vol] 0.0 10*3/uL Normal 0.0-0.2 [facility] Comment on above: Result Comment: PERF ORMED BY: [address] [address] PATHOLOGIST ENGINEER OF SYSTEM DEVELOPMENT RAKEL LAZARO M.D. Performed By: #### C BC, BMP, HS TROP, BNP #### [facility] [address] [address] [facility] Bas[facility]/100 WBC (Bld) 0.5 % Normal . [facility] Comment on above: Performed By: #### C BC, BMP, HS TROP, BNP #### [address] Eosinophils (Bld) [#/Vol] 0.0 10*3/uL Normal 0.0-0.45 [facility] Comment on above: Performed By: #### C BC, BMP, HS TROP, BNP #### [address] Eosinophils/100 WBC (Bld) 0.1 % Normal . [facility] Comment on above: Performed By: #### C BC, BMP, HS TROP, BNP #### [address] Erythrocyte distribution width (RBC) [Ratio] 13.9 % Normal 12.0-14.8 [facility] Comment on above: Performed By: #### C BC, BMP, HS TROP, BNP #### [address] Hematocrit (Bld) [Volume fraction] 41.1 % Normal 38.8-50.0 [facility] Comment on above: Performed By: #### C BC, BMP, HS TROP, BNP #### [address] Hemoglobin (Bld) [Mass/Vol] 14.1 g/dL Normal 13.0-17.0 [facility] Comment on above: Performed By: #### C BC, BMP, HS TROP, BNP #### [address] Lymphocytes (Bld) [#/Vol] 1.1 10*3/uL Normal 1.00-4.8 [facility] Comment on above: Performed By: #### C BC, BMP, HS TROP, BNP #### [address] Lymphocytes/100 WBC (Bld) 11.5 % Normal . [facility] Comment on above: Performed By: #### C BC, BMP, HS TROP, BNP #### [address] MCH (RBC) [Entitic mass] 32.1 pg Normal 27.5-35.2 [facility] Comment on above: Performed By: #### C BC, BMP, HS TROP, BNP #### [address] MCV (RBC) [Entitic vol] 93.6 fL Normal 83.5-101 [facility] Comment on above: Performed By: #### C BC, BMP, HS TROP, BNP #### [address] Mean Corpuscular HGB Conc 34.3 g/dL Normal 32.5-35.6 [facility] Comment on above: Performed By: #### C BC, BMP, HS TROP, BNP #### [address] Monocytes (Bld) [#/Vol] 0.5 10*3/uL Normal 0.0-0.8 [facility] Comment on above: Performed By: #### C BC, BMP, HS TROP, BNP #### [address] Monocytes/100 WBC (Bld) 23.57 % High 0.00-20.00 [facility] Comment on above: Result Comment: For adults in ED, MDW > 20.0 may be associated with a higher risk of sepsis during the first 12 hrs of hospital admission Performed By: #### C BC, BMP, HS TROP, BNP #### [address] Monocytes/100 WBC (Bld) 5.4 % Normal . [facility] Comment on above: Performed By: #### C BC, BMP, HS TROP, BNP #### [address] Neutrophils (Bld) [#/Vol] 8.1 10*3/uL High 1.8-7.7 [facility] Comment on above: Performed By: #### C BC, BMP, HS TROP, BNP #### [place] [address] [place] Neutrophils/100 WBC (Bld) 82.5 % Normal . [facility] Comment on above: Performed By: #### C BC, BMP, HS TROP, BNP #### [facility] [address] NRBC% 0.1 /100{WBC} Normal 0-0.5 [facility] Comment on above: Performed By: #### C BC, BMP, HS TROP, BNP #### [address] Platelet mean volume (Bld) [Entitic vol] 8.9 fL Normal 6.6-10.1 [facility] Comment on above: Performed By: #### C BC, BMP, HS TROP, BNP #### [place] [address] [place] Platelets (Bld) [#/Vol] 215 10*3/uL Normal 150-450 [facility] Comment on above: Performed By: #### C BC, BMP, HS TROP, BNP #### [place] [address] [place] RBC (Bld) [#/Vol] 4.39 10*6/uL Normal 3.90-5.60 [facility] Comment on above: Performed By: #### C BC, BMP, HS TROP, BNP #### [place] [address] [place] WBC (Bld) [#/Vol] 9.8 10*3/uL Normal 4.1-10.5 [facility] Comment on above: Performed By: #### C BC, BMP, HS TROP, BNP #### [place] [address] [place] Creatinine [Mass/volume] in Serum or PlasmaOrdered By: Daisy Paul on 09-20-2024 Creatinine [Mass/Vol] Creatinine [Mass/v olume] in Serum or Plasma 0.70-1.30 [facility] ECG 12 lead ECGon 09-20-2024 ECG 12 lead ECG [facility] [place] [address] Electrocardiograph Report Signed Patient: Shantel Melendez MR#: [id number] : 1960 Acct:[id number] Age/Sex: 63 / M ADM Date: 09/20/24 Loc: ER Room: Type: [facility] ER Attending Dr: Ordering Provider: Daisy [...] wave abnormality Confirmed by Daisy Paul MD ([id number]) on 09/20/2024 7:46:03 PM Referred By: Electronically Signed By: Daisy Paul MD Transcribed By: MUS Signed By Daisy Paul MD 11/09 Normal [facility] Eosinophils Auto (Bld) [#/Vo l]Ordered By: Daisy Paul on 09-20-2024 Eosinophils (Bld) [#/Vol] Automated eosinophil count 0.0-0.45 [facility] Eosinophils/100 WBC Auto (Bl d)Ordered By: Daisy Paul on 09-20-2024 Eosinophils/100 WBC (Bld) Automated eosinophil % . [facility] Erythrocyte distribution wid th Auto (RBC) [Ratio]Ordered By: Daisy Paul on 09-20-2024 Erythrocyte distribution width (RBC) [Ratio] Erythrocyte distribution width [Ratio] by Automated count 12.0-14.8 [facility] Glucose [Mass/volume] in Ser um or PlasmaOrdered By: Daisy aPul on 09-20-2024 Glucose [Mass/Vol] Glucose [Mass/volume ] in Serum or Plasma 70-100 [facility] Comment on above: ADA recommended refe rence rangeRandom Glucose Reference Range is dependent on time and content of last meal. Glucose of more than 200 mg/dL in a nonstressed, ambulatory subject supports the diagnosis of Diabetes Mellitus. Hematocrit Auto (Bld) [Volum e fraction]Ordered By: Daisy Paul on 09-20-2024 Hematocrit (Bld) [Volume fraction] Hematocrit [Volume Fraction] of Blood by Automated count 38.8-50.0 [facility] Hemoglobin [Mass/volume] in BloodOrdered By: Daisy Paul on 09-20-2024 Hemoglobin (Bld) [Mass/Vol] Hemoglobin [Mass/volume] in Blood 13.0-17.0 [facility] Leukocytes [#/volume] correc mnoe for nucleated erythrocytes in Blood by Automated counOrdered By: Daisy Paul on 09-20-2024 WBC corrected for nucl RBC Auto (Bld) [#/Vol] Leukocytes [#/volume] corrected for nucleated erythrocytes in Blood by Automated coun 4.1-10.5 [facility] Lymphocytes Auto (Bld) [#/Vo l]Ordered By: Daisy Paul on 09-20-2024 Lymphocytes (Bld) [#/Vol] Lymphocytes [#/volume] in Blood by Automated count 1.00-4.8 [facility] Lymphocytes/100 WBC Auto (Bl d)Ordered By: Daisy Paul on 09-20-2024 Lymphocytes/100 WBC (Bld) Lymphocytes/100 leukocytes in Blood by Automated count . [facility] MCH Auto (RBC) [Entitic mass ]Ordered By: Daisy Paul on 09-20-2024 MCH (RBC) [Entitic mass] MCH [Entitic mass] by Automated count 27.5-35.2 [facility] MCHC Auto (RBC) [Mass/Vol]Or dered By: Daisy Paul on 09-20-2024 MCHC (RBC) [Mass/Vol] MCHC [Mass/volume] by Automated count 32.5-35.6 [facility] MCV Auto (RBC) [Entitic vol] Ordered By: Daisy Paul on 09-20-2024 MCV (RBC) [Entitic vol] MCV [Entitic volume] by Automated count 83.5-101 [facility] Monocyte distribution width [Entitic volume] in Blood by AutomatedOrdered By: Daisy Paul on 09-20-2024 Monocyte distribution width Auto (Bld) [Entitic vol] Monocyte distribution width [Entitic volume] in Blood by Automated High 0.00-20.00 [facility] Comment on above: For adults in ED, MD W > 20.0 may be associated with a higher risk of sepsis during the first 12 hrs of hospital admission Monocytes Auto (Bld) [#/Vol] Ordered By: Daisy Paul on 09-20-2024 Monocytes (Bld) [#/Vol] Automated blood monocyte count 0.0-0.8 [facility] Monocytes/100 WBC Auto (Bld) Ordered By: Daisy Paul on 09-20-2024 Monocytes/100 WBC (Bld) Automated monocyte % . [facility] Natriuretic peptide B [Mass/ Vol]Ordered By: Daisy Paul on 09-20-2024 Natriuretic peptide B (Bld) [Mass/Vol] BNP ser/plas 5-100 [facility] Neutrophils Auto (Bld) [#/Vo l]Ordered By: Daisy Paul on 09-20-2024 Neutrophils (Bld) [#/Vol] Neutrophils [#/volume] in Blood by Automated count High 1.8-7.7 [facility] Neutrophils/100 WBC Auto (Bl d)Ordered By: Daisy Paul on 09-20-2024 Neutrophils/100 WBC (Bld) Automated neutrophil % . [facility] No Panel InformationOrdered By: Daisy Paul on 09-20-2024 Estimated GFR (CKD-EPI) > 60.0 mL/Min [facility] Creatinine Clearance (Chem 82.47 [facility] Nucleated erythrocytes [Pres ence] in Blood by Automated countOrdered By: Daisy Paul on 09-20-2024 Nucleated RBC Auto Ql (Bld) Nucleated erythrocytes [Presence] in Blood by Automated count 0-0.5 [facility] Platelet mean volume Auto (B ld) [Entitic vol]Ordered By: Daisy Paul on 09-20-2024 Platelet mean volume (Bld) [Entitic vol] Platelet mean volume [Entitic volume] in Blood by Automated count 6.6-10.1 [facility] Platelets Auto (Bld) [#/Vol] Ordered By: Daisy Paul on 09-20-2024 Platelets (Bld) [#/Vol] Platelets [#/volume] in Blood by Automated count 150-450 [facility] Potassium [Moles/volume] in Serum or PlasmaOrdered By: Daisy Paul on 09-20-2024 Potassium [Moles/Vol] Potassium [Moles/v olume] in Serum or Plasma 3.5-5.1 [facility] RBC Auto (Bld) [#/Vol]Ordere d By: Daisy Paul on 09-20-2024 RBC (Bld) [#/Vol] Erythrocytes [#/volu me] in Blood by Automated count 3.90-5.60 [facility] Respiratory (Upper) Panel, P CRon 09-20-2024 [...] A H3 Blank Space ---- PERFORMED BY: [facility] [address] [facility] [place] [address] PATHOLOGIST ENGINEER OF SYSTEM DEVELOPMENT RAKEL LAZARO M.D. Normal [facility] Comment on above: Performed By: #### H S TROP #### [facility] [address] [place] [address] [facility] Respiratory pathogens DNA an d RNA panel - Nasopharynx by JER with non-probe detectionOrdered By: Daisy Paul on 09-20-2024 Respiratory pathogens DNA and RNA panel JER+non-probe (Nph) Respiratory pathogens DNA and RNA panel - Nasopharynx by JER with non-probe detection [facility] Serum or plasma anion gap de terminationOrdered By: aDisy Paul on 09-20-2024 Anion gap [Moles/Vol] Serum or plasma an ion gap determination 6.0-15.0 [facility] Sodium [Moles/volume] in Ser um or PlasmaOrdered By: Daisy Paul on 09-20-2024 Sodium [Moles/Vol] Sodium [Moles/volume ] in Serum or Plasma Low 136-145 [facility] Troponin I High Sensitivityo n 09-20-2024 Troponin I High Sensitivity 8 Normal 0-20 [facility] Comment on above: Result Comment: The Troponin units of report have been changed to meet the Chest Pain Accreditation requirement, element EC5.M1l2. Troponin units are changed from pg/ml to ng/L. Also, the decimal is removed and results are in whole numbers. PERFORMED BY: [place] [address] PATHOLOGIST ENGINEER OF SYSTEM DEVELOPMENT RAKEL LAZARO M.D. Performed By: #### H S TROP #### [facility] [address] [place] [address] Troponin I High Sensitivity 8 Normal 0-20 [facility] Comment on above: Result Comment: The Troponin units of report have been changed to meet the Chest Pain Accreditation requirement, element EC5.M1l2. Troponin units are changed from pg/ml to ng/L. Also, the decimal is removed and results are in whole numbers. PERFORMED BY: [place] [address] PATHOLOGIST ENGINEER OF SYSTEM DEVELOPMENT RAKEL LAZARO M.D. Performed By: #### C BC, BMP, HS TROP, BNP #### [facility] [address] [place], [place] [id number] [facility] Troponin I.cardiac [Mass/vol ume] in Serum or Plasma by Detection limit <= 0.01 ng/Ordered By: Daisy Paul on 09-20-2024 Troponin I.cardiac DL <= 0.01 ng/mL [Mass/Vol] Troponin I.cardiac [Mass/volume] in Serum or Plasma by Detection limit <= 0.01 ng/ 0-20 [facility] Comment on above: The Troponin units [...] nitrogen [Mass/volume] in Serum or Plasma 01-09 [facility] WBC Auto (Bld) [#/Vol]Ordere d By: Daisy Paul on 09-20-2024 WBC (Bld) [#/Vol] Leukocytes [#/volume ] in Blood by Automated count 4.1-10.5 [facility] X-ray reportOrdered By: Rex Hutchins on 09-20-2024 Study report [facility] [place] [address] [place] [address] XRay Report Signed Patient: Shantel Melendez MR#: [id number] : 1960 Acct:[id number] Age/Sex: 63 / M ADM Date: 5 Loc: ER Room: Type: [facility] ER Attending Dr: Copies to: Daisy [...] ATELECTASIS, CONSIDER FOLLOW-UPTO RESOLUTION Impression dictated by: eGe Hutchins M.D.09/20/2024 12:47 PM Dictation Location: RADIO-PC-29 Transcribed By: MARISA 09/20/24 1247 Dictated By: Gee Hutchins MD 09/20/241244 Signed By: 09/20/24 1247 [facility] Work Phone: XR chest 2V*on 09-20-2024 XR chest 2V* [facility] [place] [address] [place] [address] XRay Report Signed Patient: Shantel Melendez MR#: [id number] : 1960 Acct:[id number] Age/Sex: 63 / M ADM Date: 09/20/24 Loc: ER Room: Type: [facility] ER Attending Dr: Copies to: Daisy [...] 09/20/241244 Signed By: 09/20/24 1247 Normal [facility] US ankle/arm indiceson 09-16 US ankle/arm indices [facility] [address] [place] [address] Ultrasound Report Signed Patient: Shantel Melendez MR#: [id number] : 1960 Acct:[id number] Age/Sex: 63 / M ADM Date: 09/11/24 Loc: [facility] Room: Type: DEP CLI Attending Dr: Ruddy [...] Filipe Hess M.D.09/16/2024 2:46 PM Dictation Location: [place] [address] Tech: Aguedasteven Helm Transcribed By: MARISA 09/16/24 1446 Dictated By: Filipe Hess MD 09/16/24 1445 Signed By: 09/16/24 1446 Normal [facility] X-ray reportOrdered By: Yehuda Pozo on 06-24-2024 Study report [facility] [place] [address] XRay Report Signed Patient: Shantel Melendez MR#: [id number] : 1960 Acct:[id number] Age/Sex: 63 / M ADM Date: 5 Loc: XD Room: Type: [facility] CLI Attending Dr: Solomon DIETRICHC Copies to: [...] Pozo Jr, DO 06/24/242005 Signed By: 06/24/242007 [facility] XR cervical spine LAT/FLX/EX Ton 06-24-2024 XR cervical spine LAT/FLX/EXT [facility] [place] [address] XRay Report Signed Patient: Shantel Melendez MR#: [id number] : 1960 Acct:[id number] Age/Sex: 63 / M ADM Date: 06/24/24 Loc: XD Room: Type: [facility] Attending Dr: Solomon Narayanan PA-C Copies to: [...] DO 06/24/242005 Signed By: 06/24/242007 Normal [facility] Basic metabolic 2000 panelon 04-10-2024 Anion gap [Moles/Vol] 14 mmol/L 10 - 2 0 mmol/L [facility] Calcium [Mass/Vol] 9 mg/dL 8.6 - 10. 6 mg/dL [facility] Chloride [Moles/Vol] 103 mmol/L 98 - 10 7 mmol/L [facility] CO2 [Moles/Vol] 26 mmol/L 21 - 32 mmol/L [facility] Creatinine [Mass/Vol] 0.86 mg/dL 0.50 - 1.30 mg/dL [facility] eGFR - PINF [facility] Comment on above: Calculations of sandra mated GFR are performed using the 2020 CKD-EPI Study Refit equation without the race variable for the IDMS-Traceable creatinine methods. https://jasn.asnjournals.org/content/early//ASN.39897 14090 Glucose [Mass/Vol] 159 mg/dL High 74 - 99 mg/dL [facility] Interpretation and review of laboratory results Abnormal [facility] Potassium [Moles/Vol] 4.5 mmol/L 3.5 - 5.3 mmol/L [facility] Sodium [Moles/Vol] 138 mmol/L 136 - 145 mmol/L [facility] Urea nitrogen [Mass/Vol] 14 mg/dL 6 - 23 mg/dL [facility] Anion gap [Moles/Vol] 14 mmol/L Normal 10-20 [facility] Comment on above: Performed By: #### 5 7021-8 #### TITUS Mercado ([id number]) [facility] ([facility]) [id number] [place] [address] Calcium [Mass/Vol] 9.0 mg/dL Normal 8.6-10.6 [facility] Comment on above: Performed By: #### 5 7021-8 #### TITUS Mercado (19999) [facility] ([facility]) [address] [place] [address] Chloride [Moles/Vol] 103 mmol/L Normal 98-107 [facility] Comment on above: Performed By: #### 5 7021-8 #### TITUS Mercado (57727) [facility] ([facility]) [address] [place] [address] CO2 [Moles/Vol] 26 mmol/L Normal 21-32 [facility] Comment on above: Performed By: #### 5 7021-8 #### TITUS Mercado (61468) [facility] ([facility]) [address] [place] [address] Creatinine [Mass/Vol] 0.86 mg/dL Normal 0.50-1.30 [facility] Comment on above: Performed By: #### 5 7021-8 #### TITUS Mercado ([id number]) [facility] ([facility]) [address] [place] [address] GFR/1.73 sq M.predicted MDRD (S/P/Bld) [Vol rate/Area] mL/min/{1.73_m2} Normal >60 [facility] Comment on above: Result Comment: Calc ulations of estimated GFR are performed using the 2020 CKD-EPI Study Refit equation without the race variable for the IDMS-Traceable creatinine methods. https://jasn.asnjournals.org/content/early//ASN.80250 52633 Performed By: #### 5 7021-8 #### TITUS Mercado (09499) [facility] ([facility]) [address] [place] [address] Glucose [Mass/Vol] 159 mg/dL High 74-99 [facility] Comment on above: Performed By: #### 5 7021-8 #### TITUS Mercado (18299) [facility] ([facility]) [address] [place] [address] Potassium [Moles/Vol] 4.5 mmol/L Normal 3.5-5.3 [facility] Comment on above: Performed By: #### 5 7021-8 #### TITUS Mercado (07591) [facility] ([facility]) [address] [place] [address] Sodium [Moles/Vol] 138 mmol/L Normal 136-145 [facility] Comment on above: Performed By: #### 5 7021-8 #### TITUS Mercado ([id number]) [facility] ([facility]) [address] [place], [place] [address] Urea nitrogen [Mass/Vol] 14 mg/dL Normal 6-23 [facility] Comment on above: Performed By: #### 5 7021-8 #### TITUS Mercado ([id number]) [facility] ([facility]) [address] [place], [place] [address] CBC panel Auto (Bld)on 04-10 Erythrocyte distribution width (RBC) [Ratio] 13.3 % 11.5 - 14.5 % [facility] Hematocrit (Bld) [Volume fraction] 38 % Low 41.0 - 52.0 % [facility] Hemoglobin (Bld) [Mass/Vol] 12.9 g/dL Low 13.5 - 17.5 g/dL [facility] Interpretation and review of laboratory results Abnormal [facility] MCH (RBC) [Entitic mass] 31.9 pg 26.0 - 34.0 pg [facility] MCHC (RBC) [Mass/Vol] 33.9 g/dL 32.0 - 36.0 g/dL [facility] MCV (RBC) [Entitic vol] 94 fL 80 - 100 fL [facility] Nucleated RBC/100 WBC (Bld) [Ratio] 0 % [facility] Platelets (Bld) [#/Vol] 221 10*3/uL [facility] RBC (Bld) [#/Vol] 4.05 10*6/uL Low [facility] WBC (Bld) [#/Vol] 9.6 10*3/uL [facility] Erythrocyte distribution width (RBC) [Ratio] 13.3 % Normal 11.5-14.5 [facility] Comment on above: Performed By: #### 5 7021-8 #### TITUS Mercado (50438) [facility] ([facility]) [address] [place] [address] Hematocrit (Bld) [Volume fraction] 38.0 % Low 41.0-52.0 [facility] Comment on above: Performed By: #### 5 7021-8 #### TITUS Mercado (50361) [facility] ([facility]) [address] [place] [address] Hemoglobin (Bld) [Mass/Vol] 12.9 g/dL Low 13.5-17.5 [facility] Comment on above: Performed By: #### 5 7021-8 #### TITUS Mercado ([id number]) [facility] ([facility]) [address] [place] [address] MCH (RBC) [Entitic mass] 31.9 pg Normal 26.0-34.0 [facility] Comment on above: Performed By: #### 5 7021-8 #### TITUS Mercado (58445) [facility] ([facility]) [address] [place] [address] MCHC (RBC) [Mass/Vol] 33.9 g/dL Normal 32.0-36.0 [facility] Comment on above: Performed By: #### 5 7021-8 #### TITUS Mercado (86138) [facility] ([facility]) [address] [place] [address] MCV (RBC) [Entitic vol] 94 fL Normal 80-100 [facility] Comment on above: Performed By: #### 5 7021-8 #### TITUS Mercado (83352) [facility] ([facility]) [address] [place] [address]39 Nucleated RBC/100 WBC (Bld) [Ratio] 0.0 /100 WBCs Normal 0.0-0.0 [facility] Comment on above: Performed By: #### 5 7021-8 #### TITUS Mercado (23397) [facility] ([facility]) [address] [place] [address] Platelets (Bld) [#/Vol] 221 x10*3/uL Normal 150-450 [facility] Comment on above: Performed By: #### 5 7021-8 #### TITUS ORTIZTZER L (79653) [facility] ([facility]) [address] [place] [address] RBC (Bld) [#/Vol] 4.05 x10*6/uL Low 4.50-5.90 [facility] Comment on above: Performed By: #### 5 7021-8 #### TITUS SCHMOTZER L (36462) [facility] ([facility]) [address] [place] [address] WBC (Bld) [#/Vol] 9.6 x10*3/uL Normal 4.4-11.3 [facility] Comment on above: Performed By: #### 5 7021-8 #### TITUS SCHUYLERMOTZER L (98706) [facility] ([facility]) [address] [place] [address] XR CERVICAL SPINE 2-3 VIEWSo n 04-10-2024 XR CERVICAL SPINE 2-3 VIEWS Interpreted By: Shubham Eubanks, STUDY: Cervical spine dated 04/10/2024. INDICATION: Signs/Symptoms:Post surgery COMPARISON: None. ACCESSION NUMBER(S): [id number] ORDERING CLINICIAN: DORETHA HARRIS TECHNIQUE: Two views [...] Shubham Eubanks 04/10/2024 10:05 AM Dictation workstation: [id number] [facility] Comment on above: Order Comment: Pleas e have patient upright XR Cervical spine 2 or 3 Vie wson 04-10-2024 Surgical and degener ative change as above without osseous injury evident. MACRO: None Signed by: Shubham Eubanks 04/10/2024 10:05 AM Dictation workstation: [id number] [facility] Interpreted By: Shubham Curran, STUDY: Cervical spine dated 04/10/2024. INDICATION: Signs/Symptoms:Post surgery COMPARISON: None. ACCESSION NUMBER(S): [id number] ORDERING CLINICIAN: DORETHA HARRIS TECHNIQUE: Two views [...] INDICATION: Signs/Symptoms:Post surgery COMPARISON: None. ACCESSION NUMBER(S): [id number] ORDERING CLINICIAN: DORETHA HARRIS TECHNIQUE: Two views [...] Shubham Eubanks 04/10/2024 10:05 AM Dictation workstation: [id number] [facility] Work Phone: Radiology Study observation (narrative) [facility] Work Phone: XR Cervical spine 2 or 3 Vie wsOrdered By: Shubham Eubanks on 04-10-2024 [facility] Work Phone: Blood type and Indirect anti body screen panel (Bld)on 04-09-2024 ABO group Nom (Bld) A [facility] Blood group antibody screen Ql Negative [facility] D Ag Ql (Bld) Positive [facility] ABO group Nom (Bld) A Normal [facility] Comment on above: Order Comment: As ne eded for scheduled for aortic, liver, cardiac, or thoracic surgery OR hgb<7.5mg/dl and no active type and screen. Performed By: #### 5 7021-8 #### TITUS Mercado ([id number]) [facility] ([facility]) [address] [place], [place] [address] Blood group antibody screen Ql Negative Normal [facility] Comment on above: Order Comment: As ne eded for scheduled for aortic, liver, cardiac, or thoracic surgery OR hgb<7.5mg/dl and no active type and screen. Performed By: #### 5 7021-8 #### TITUS Mercado ([id number]) [facility] ([facility]) [address] [place], [place] [address] D Ag Ql (Bld) Positive Normal [facility] Comment on above: Order Comment: As ne eded for scheduled for aortic, liver, cardiac, or thoracic surgery OR hgb<7.5mg/dl and no active type and screen. Performed By: #### 5 7021-8 #### TITUS Mercado ([id number]) [facility] ([facility]) [address] [place] [address] FL FLUORO IMAGES NO CHARGEon 04-09-2024 FL FLUORO IMAGES NO CHARGE These images are not reportable by radiology and will not be interpreted by Radiologists. Normal [facility] Gas and Carbon monoxide and Electrolytes panel (BldA)on 04-09-2024 Anion gap 4 (BldA) [Moles/Vol] 8 Low [facility] Base excess Calc (Bld) [Moles/Vol] -1.9000 mmol/L -2.0 - 3.0 mmol/L [facility] Calcium.ionized (BldA) [Moles/Vol] 1.24 mmol/L 1.10 - 1.33 mmol/L [facility] Chloride (BldA) [Moles/Vol] 104 mmol/L 98 - 107 mmol/L [facility] CO2 (Bld) [Partial pressure] 46 mm[Hg] High [facility] Glucose [Mass/Vol] 132 mg/dL High 74 - 99 mg/dL [facility] HCO3 (Bld) [Moles/Vol] 24.3 mmol/L 22.0 - 26.0 mmol/L [facility] Hematocrit Est (Bld) [Volume fraction] 39 % Low 41.0 - 52.0 % [facility] Hemoglobin (Bld) [Mass/Vol] 12.9 g/dL Low 13.5 - 17.5 g/dL [facility] Inhaled oxygen concentration 44 % [facility] Interpretation and review of laboratory results Abnormal [facility] Lactate (BldA) [Moles/Vol] 0.7 mmol/L 0.4 - 2.0 mmol/L [facility] Oxygen (Bld) [Partial pressure] 156 mm[Hg] High [facility] Oxyhemoglobin (BldA) [Mass fraction] 95 % 94.0 - 98.0 % [facility] pH (Bld) 7.33 [pH] Low 7.38 - 7.42 pH [facility] Potassium (BldA) [Moles/Vol] 4.5 mmol/L 3.5 - 5.3 mmol/L [facility] Sodium (BldA) [Moles/Vol] 132 mmol/L Low 136 - 145 mmol/L [facility] Anion gap 4 (BldA) [Moles/Vol] 8 mmo/L Low 10-25 [facility] Comment on above: Performed By: #### 5 7021-8 #### TITUS Mercado (16439) [facility] ([facility]) [address] [place] [address] Base excess Calc (Bld) [Moles/Vol] -1.9000 mmol/L Normal -2.0-3.0 [facility] Comment on above: Performed By: #### 5 7021-8 #### TITUS Mercado (39895) [facility] ([facility]) [address] [place] [address] Calcium.ionized (BldA) [Moles/Vol] 1.24 mmol/L Normal 1.10-1.33 [facility] Comment on above: Performed By: #### 5 7021-8 #### TITUS Mercado (33110) [facility] ([facility]) [address] [place] [address] Chloride (BldA) [Moles/Vol] 104 mmol/L Normal 98-107 [facility] Comment on above: Performed By: #### 5 7021-8 #### TITUS SOLORZANO L (73192) [facility] ([facility]) [address] [place] [address]36 CO2 (Bld) [Partial pressure] 46 mm Hg High 38-42 [facility] Comment on above: Performed By: #### 5 7021-8 #### TITUS SOLORZANO L (65369) [facility] ([facility]) [address] [place] [address] Glucose [Mass/Vol] 132 mg/dL High 74-99 [facility] Comment on above: Performed By: #### 5 7021-8 #### TITUS SOLORZANO L (70101) [facility] ([facility]) [address] [place] [address] 28208 HCO3 (Bld) [Moles/Vol] 24.3 mmol/L Normal 22.0-26.0 [facility] Comment on above: Performed By: #### 5 7021-8 #### TITUS SOLORZANO L (55644) [facility] ([facility]) [address] [place] [address] Hematocrit Est (Bld) [Volume fraction] 39.0 % Low 41.0-52.0 [facility] Comment on above: Performed By: #### 5 7021-8 #### TITUS SOLORZANO L (38067) [facility] ([facility]) [address] [place] [address] Hemoglobin (Bld) [Mass/Vol] 12.9 g/dL Low 13.5-17.5 [facility] Comment on above: Performed By: #### 5 7021-8 #### TITUS Mercado (87235) [facility] ([facility]) [address] [place] [address]861 Inhaled oxygen concentration 44 % Normal [facility] Comment on above: Performed By: #### 5 7021-8 #### TITUS Mercado (50753) [facility] ([facility]) [address] [place] [address] Lactate (BldA) [Moles/Vol] 0.7 mmol/L Normal 0.4-2.0 [facility] Comment on above: Performed By: #### 5 7021-8 #### TITUS Mercado (81989) [facility] ([facility]) [address] [place] [address] 21717 Oxygen (Bld) [Partial pressure] 156 mm Hg High 85-95 [facility] Comment on above: Performed By: #### 5 7021-8 #### TITUS Mercado (13804) [facility] ([facility]) [address] [place] [address] 03564 Oxyhemoglobin (BldA) [Mass fraction] 95.0 % Normal 94.0-98.0 [facility] Comment on above: Performed By: #### 5 7021-8 #### TITUS Mercado (67078) [facility] ([facility]) [address] [place] [address]1939 pH (Bld) 7.33 [pH] Low 7.38-7.42 [facility] Comment on above: Performed By: #### 5 7021-8 #### TITUS Mercado (69404) [facility] ([facility]) [address] [place] [address] Potassium (BldA) [Moles/Vol] 4.5 mmol/L Normal 3.5-5.3 [facility] Comment on above: Performed By: #### 5 7021-8 #### TITUS Mercado (06049) [facility] ([facility]) [address] [place] [address] Sodium (BldA) [Moles/Vol] 132 mmol/L Low 136-145 [facility] Comment on above: Performed By: #### 5 7021-8 #### TITUS Mercado (37018) [facility] ([facility]) [address] [place] [address]052 XR tomography Unspecified monique dy regionon 04-09-2024 These images are not reportable by radiology and will not be interpreted by Radiologists. IMAGING CT TRANSFER OF OUTSIDE FILMS on 03-31-2024 CT TRANSFER OF OUTSIDE FILMS Outside images for comparison or treatment purposes, not interpreted by Radiologists. Normal [facility] Study Interpretation of outs jeffrey studyon 03-31-2024 Outside images for comparison or treatment purposes, not interpreted by Radiologists. IMAGING Blood type and Indirect anti body screen panel (Bld)on 03-26-2024 ABO group Nom (Bld) A Normal [facility] Comment on above: Performed By: #### 3 4532-2 #### TITUS Mercado (47850) [facility] ([facility]) [id number] [place] [address] Blood group antibody screen Ql Negative [facility] Comment on above: Performed By: #### 3 4532-2 #### TITUS Mercado (39809) [facility] ([facility]) [address] [place] [address] D Ag Ql (Bld) Positive [facility] Comment on above: Performed By: #### 3 4532-2 #### TITUS Mercado (26538) [facility] ([facility] [place] [place] [address] [place] [address] DEXA BONE DENSITYon 02-13-20 24 DEXA BONE DENSITY Interpreted By: Ruddy Simmons, STUDY: DEXA BONE DENSITY02/13/2024 10:50 am INDICATION: Signs/Symptoms:r/o osteoporosis, NEED AXIAL SKELETON IMAGES.. The patient is a 63 y/o year old M. ,M54.12 Radiculopathy, cervical region COMPARISON: None. ACCESSION NUMBER(S): [id number] ORDERING CLINICIAN: DORETHA HARRIS TECHNIQUE: DEXA BONE [...] Ruddy Lopez 12/29/2024 8:09 AM Dictation workstation: [id number] [facility] DXA Skeletal system Views fo r [...] Radiculopathy, cervical region COMPARISON: None. ACCESSION NUMBER(S): [id number] ORDERING CLINICIAN: DORETHA HARRIS FINDINGS: C-spine, 6 [...] Romulo Medrano 02/19/2024 6:35 PM Dictation workstation: [id number] [facility] Comment on above: Order Comment: Pleas e obtain with flexion and extension XR CHEST 2 VIEWSon XR CHEST 2 VIEWS Interpreted By: Romulo Hubbard, STUDY: XR CHEST 2 VIEWS; 02/13/2024 11:10 am INDICATION: Signs/Symptoms:Preop surgery 02/[address] Steven MD. ,M54.12 Radiculopathy, cervical region,M81.0 Age-related osteoporosis without current pathological fracture COMPARISON: None. ACCESSION NUMBER(S): [id number] ORDERING CLINICIAN: DORETHA HARRIS FINDINGS: CARDIOMEDIASTINAL SILHOUETTE: Cardiomediastinal silhouette is normal in size and configuration. LUNGS: Lungs are clear. ABDOMEN: No remarkable upper abdominal findings. BONES: No acute osseous changes. IMPRESSION: 1. No evidence of acute cardiopulmonary process. MACRO: None Signed by: Romulo Medrano 02/19/2024 6:53 PM Dictation workstation: [id number] [facility] ECG 12 leadOrdered By: Shavon Rico on 02-12-2024 Atrial Rate 63 BPM [facility] Work Phone: [phone] P Dimock 58 degrees [facility] Work Phone: [phone] P Offset 149 ms [facility] Work Phone: [phone] P Onset 90 ms [facility] Work Phone: [phone] MO Interval 268 ms [facility] Work Phone: [phone] Q Onset 224 ms [facility] Work Phone: [phone] QRS Count 10 beats [facility] Work Phone: QRS Duration 74 ms [facility] Work Phone: [phone] QT Interval 406 ms [facility] Work Phone: [phone] QTC Calculation(Bazett) 415 ms [facility] Work Phone: [phone] QTC Fredericia 412 ms [facility] Work Phone: [phone] R Dimock -3 degrees [facility] Work Phone: [phone] T Dimock 18 degrees [facility] Work Phone: T Offset 427 ms [facility] Work Phone: Ventricular Rate 63 BPM [facility] Work Phone: [facility] Work Phone: ECG 12 leadon 02-12-2024 Sinus [...] Tobi Rico (1008) on 02/12/2024 12:20:00 PM [facility] Work Phone: Basic metabolic 2000 panelon 02-11-2024 Anion gap [Moles/Vol] 13 mmol/L Normal 10-20 [facility] Comment on above: Performed By: #### 2 4321-2 #### TITUS Mercado ([id number]) [facility] ([facility]) [address] [place] [address] Calcium [Mass/Vol] 9.6 mg/dL Normal 8.6-10.6 [facility] Comment on above: Performed By: #### 2 4321-2 #### TITUS Mercado ([id number]) [facility] ([facility]) [address] [place] [address] Chloride [Moles/Vol] 104 mmol/L Normal 98-107 [facility] Comment on above: Performed By: #### 2 4321-2 #### TITUS Mercado (54054) [facility] ([facility]) [address] [place] [address] CO2 [Moles/Vol] 26 mmol/L Normal 21-32 [facility] Comment on above: Performed By: #### 2 4321-2 #### TITUS Mercado ([id number]) [facility] ([facility]) [address] [place] [address] Creatinine [Mass/Vol] 0.89 mg/dL Normal 0.50-1.30 [facility] Comment on above: Performed By: #### 2 4321-2 #### TITUS Mercado ([id number]) [facility] ([facility]) [address] [place] [address] GFR/1.73 sq M.predicted MDRD (S/P/Bld) [Vol rate/Area] mL/min/{1.73_m2} Normal >60 [facility] Comment on above: Result Comment: Calc ulations of estimated GFR are performed using the 2020 CKD-EPI Study Refit equation without the race variable for the IDMS-Traceable creatinine methods. https://jasn.asnjournals.org/content/early//ASN.34104 69947 Performed By: #### 2 4321-2 #### TITUS Mercado ([id number]) [facility] ([facility]) [address] [place] [address] Glucose [Mass/Vol] 77 mg/dL Normal 74-99 [facility] Comment on above: Performed By: #### 2 4321-2 #### TITUS Mercado ([id number]) [facility] ([facility]) [address] [place] [address] Potassium [Moles/Vol] 4.6 mmol/L Normal 3.5-5.3 [facility] Comment on above: Performed By: #### 2 4321-2 #### TITUS Mercado ([id number]) [facility] ([facility]) [address] [place] [address] Sodium [Moles/Vol] 138 mmol/L Normal 136-145 [facility] Comment on above: Performed By: #### 2 4321-2 #### TITUS Mercado ([id number]) [facility] ([facility]) [address] [place] [address] Urea nitrogen [Mass/Vol] 9 mg/dL Normal 6-23 [facility] Comment on above: Performed By: #### 2 4321-2 #### TITUS Mercado ([id number]) [facility] ([facility]) [address] [place] [address] Blood type and Indirect anti body screen panel (Bld)on 02-11-2024 ABO group Nom (Bld) A Normal [facility] Comment on above: Performed By: #### 3 4532-2 #### TITUS Mercado ([id number]) [facility] ([facility]) [address] [place] [address] Blood group antibody screen Ql Negative [facility] Comment on above: Performed By: #### 3 4532-2 #### TITUS Mercado ([id number]) [facility] ([facility]) [id number] [place] [address] D Ag Ql (Bld) Positive [facility] Comment on above: Performed By: #### 3 4532-2 #### TITUS Mercado ([id number]) [facility] ([facility]) [address] [place] [address]111 CBC W Auto Differential pane l (Bld)on 02-11-2024 Basophils (Bld) [#/Vol] 0.04 x10*3/uL Normal 0.00-0.10 [facility] Comment on above: Performed By: #### 5 7021-8 #### TITUS Mercado ([id number]) [facility] ([facility]) [address] [place] [address] Basophils/100 WBC (Bld) 0.8 % Normal 0.0-2.0 [facility] Comment on above: Performed By: #### 5 7021-8 #### TITUS Mercado ([id number]) [facility] ([facility]) [address] [place] [address] Eosinophils (Bld) [#/Vol] 0.05 x10*3/uL Normal 0.00-0.70 [facility] Comment on above: Performed By: #### 5 7021-8 #### TITUS Mercado (65549) [facility] ([facility]) [address] [place] [address] Eosinophils/100 WBC (Bld) 1.0 % Normal 0.0-6.0 [facility] Comment on above: Performed By: #### 5 7021-8 #### TITUS Mercado ([id number]) [facility] ([facility]) [address] [place] [address]2365 Erythrocyte distribution width (RBC) [Ratio] 13.2 % Normal 11.5-14.5 [facility] Comment on above: Performed By: #### 5 7021-8 #### TITUS Mercdao ([id number]) [facility] ([facility]) [address] [place] [address] Hematocrit (Bld) [Volume fraction] 39.6 % Low 41.0-52.0 [facility] Comment on above: Performed By: #### 5 7021-8 #### TITUS Mercado (58137) [facility] ([facility]) [address] [place] [address]69[address] Hemoglobin (Bld) [Mass/Vol] 13.2 g/dL Low 13.5-17.5 [facility] Comment on above: Performed By: #### 5 7021-8 #### TITUS Mercado (32555) [facility] ([facility]) [address] [place] [address] Immature granulocytes (Bld) [#/Vol] 0.00 x10*3/uL Normal 0.00-0.70 [facility] Comment on above: Performed By: #### 5 7021-8 #### TITUS Mercado ([id number]) [facility] ([facility]) [address] [place] [address] Immature granulocytes/100 WBC (Bld) 0.0 % Normal 0.0-0.9 [facility] Comment on above: Result Comment: Dayan ture Granulocyte Count (IG) includes promyelocytes, myelocytes and metamyelocytes but does not include bands. Percent differential counts (%) should be interpreted in the context of the absolute cell counts (cells/UL). Performed By: #### 5 7021-8 #### TITUS Mercado ([id number]) [facility] ([facility]) [address] [place] [address] Lymphocytes (Bld) [#/Vol] 1.74 x10*3/uL Normal 1.20-4.80 [facility] Comment on above: Performed By: #### 5 7021-8 #### TITUS Mercado ([id number]) [facility] ([facility]) [address] [place] [address] 47777 Lymphocytes/100 WBC (Bld) 33.1 % Normal 13.0-44.0 [facility] Comment on above: Performed By: #### 5 7021-8 #### TITUS Mercado ([id number]) [facility] ([facility]) [address] [place] [address] 48644 MCH (RBC) [Entitic mass] 31.5 pg Normal 26.0-34.0 [facility] Comment on above: Performed By: #### 5 7021-8 #### TITUS SOLORZANO L (68027) [facility] ([facility]) [address] [place] [address] 91360 MCHC (RBC) [Mass/Vol] 33.3 g/dL Normal 32.0-36.0 [facility] Comment on above: Performed By: #### 5 7021-8 #### TITUS Mercado ([id number]) [facility] ([facility]) [address] [place] [address] 47956 MCV (RBC) [Entitic vol] 95 fL Normal 80-100 [facility] Comment on above: Performed By: #### 5 7021-8 #### TITUS Mercado (38149) [facility] ([facility]) [address] [place] [address] 70609 Monocytes (Bld) [#/Vol] 0.30 x10*3/uL Normal 0.10-1.00 [facility] Comment on above: Performed By: #### 5 7021-8 #### TITUS Mercado ([id number]) [facility] ([facility]) [address] [place] [address] 91856 Monocytes/100 WBC (Bld) 5.7 % Normal 2.0-10.0 [facility] Comment on above: Performed By: #### 5 7021-8 #### TITUS Mercado (43429) [facility] ([facility]) [address] [place] [address] 57322 Neutrophils (Bld) [#/Vol] 3.13 x10*3/uL Normal 1.20-7.70 [facility] Comment on above: Result Comment: Perc ent differential counts (%) should be interpreted in the context of the absolute cell counts (cells/uL). Performed By: #### 5 7021-8 #### TITUS Mercado ([id number]) [facility] ([facility]) [address] [place] [address] Neutrophils/100 WBC (Bld) 59.4 % Normal 40.0-80.0 [facility] Comment on above: Performed By: #### 5 7021-8 #### TITUS Mercado ([id number]) [facility] ([facility]) [address] [place] [address] 68366 Nucleated RBC/100 WBC (Bld) [Ratio] 0.0 /100 WBCs Normal 0.0-0.0 [facility] Comment on above: Performed By: #### 5 7021-8 #### TITUS Mercado ([id number]) [facility] ([facility]) [address] [place] [address] Platelets (Bld) [#/Vol] 271 x10*3/uL Normal 150-450 [facility] Comment on above: Performed By: #### 5 7021-8 #### TITUS Mercado ([id number]) [facility] ([facility]) [address] [place] [address] RBC (Bld) [#/Vol] 4.19 x10*6/uL Low 4.50-5.90 [facility] Comment on above: Performed By: #### 5 7021-8 #### TITUS Mercado ([id number]) [facility] ([facility]) [address] [place] [address] WBC (Bld) [#/Vol] 5.3 x10*3/uL Normal 4.4-11.3 [facility] Comment on above: Performed By: #### 5 7021-8 #### TITUS Mercado ([id number]) [facility] ([facility]) [address] [place] [address] ECG 12-LEADon 02-11-2024 ECG 12-LEAD Ventricular Rate 63 Atrial Rate 63 P-R Interval 268 QRS Duration 74 Q-T Interval 406 QTC Calculation(Bazett) 415 P Dimock 58 R Dimock -3 T Dimock 18 QRS Count 10 Q Onset 224 P Onset 90 P Offset 149 T Offset 427 QTC Fredericia 412 Diagnosis Sinus rhythm with 1st degree AV block Otherwise normal ECG When compared with ECG of 30-JAN-2019 19:26, heart rate decreased Confirmed by Tobi Rico ([id number]) on 02/12/2024 12:20:00 PM Normal [facility] NICOTINE AND METABOLITES,Son 02-11-2024 Cotinine [Mass/Vol] 152 ng/mL Normal [facility] Comment on above: Performed By: #### N I+ME #### [facility] TRINA) ([id number]) [address] [place] [address] Nicotine [Mass/Vol] 6 ng/mL Normal [facility] Comment on above: Result Comment: INTE [...] developed and its performance characteristics determined by [facility]. It has not been cleared or approved by the US Food and Drug Administration. This test was performed in a CLIA certified laboratory and is intended for clinical purposes. Performed By: [facility] [address] [place] [address] Laboratory Animal Care Veterinarian: Benjamin Bullock MD, PhD CLIA Number: [id number] Performed By: #### N I+ME #### light [employer] TRNIA) ([id number]) [address] [place] [address] PT and aPTT panel Coag (PPP) on 02-11-2024 aPTT Coag (PPP) [Time] 33 s Normal 27-38 Un [facility] Comment on above: Order Comment: The A PTT is no longer used for monitoring Unfractionated Heparin Therapy. For monitoring Heparin Therapy, use the Heparin Assay. Performed By: #### 3 4529-8 #### TITUS Mercado (54500) [facility] ([facility]) [address] [place] [address] INR Coag (PPP) [Relative time] 1.0 Normal 0.9-1.1 [facility] Comment on above: Order Comment: The A PTT is no longer used for monitoring Unfractionated Heparin Therapy. For monitoring Heparin Therapy, use the Heparin Assay. Performed By: #### 3 4529-8 #### TITUS Mercado ([id number]) [facility] ([facility]) [address] [place], [place] [address] PT Coag (PPP) [Time] 11.5 s Normal 9.8-12.8 [facility] Comment on above: Order Comment: The A PTT is no longer used for monitoring Unfractionated Heparin Therapy. For monitoring Heparin Therapy, use the Heparin Assay. Performed By: #### 3 4529-8 #### TITUS Mercado ([id number]) [facility] ([facility]) [address] [place], [place] [address] Staphylococcus aureus.methic illin resistant isolateon 02-11-2024 MRSA isol Org specific cx Ql (Nose) Test: Staphylococcus aureus/MRSA colonization, Culture Specimen Source: Anterior Nares Specimen Type: Swab Specimen Date: 02/11/2024 150 Result Date: 02/13/2024825 Result Status: Final result Abnormal: No Resulting Lab: [facility] [address] [place], [place] [address] CULTURE No Staphylococcus aureus isolated Normal [facility] Comment on above: Performed By: #### 5 2969-3 #### TITUS Mercado ([id number]) [facility] ([facility]) [address] [place] [address] 25363 Urinalysis complete W Reflex Culture panel (U)on 02-11-2024 Appearance (U) Clear Normal Clear [facility] Comment on above: Performed By: #### 5 8077-9 #### TITUS Mercado ([id number]) [facility] ([facility]) [address] [place] [address] 82338 Bilirubin (U) [Mass/Vol] Negative Normal NEGATIVE [facility] Comment on above: Performed By: #### 5 8077-9 #### TITUS Mercado (32409) [facility] ([facility]) [address] [place] [address] 55630 Color (U) Colorless Normal Light-[place] ow, Yellow, Dark-Yello w [facility] Comment on above: Performed By: #### 5 8077-9 #### TITUS Mercado (81584) [facility] ([facility]) [address] [place] [address] 19167 Glucose Auto test strip (U) [Mass/Vol] Normal Normal Normal [facility] Comment on above: Performed By: #### 5 8077-9 #### TITUS SOLORZANO L (04366) [facility] ([facility]) [address] [place] [address] 97219 Ketones (U) [Mass/Vol] Negative Normal NEGATIVE Un [facility] Comment on above: Performed By: #### 5 8077-9 #### TITUS Mercado (39553) [facility] ([facility]) [address] [place] [address] 07816 Leukocyte esterase Auto test strip Ql (U) Negative Normal NEGATIVE [facility] Comment on above: Performed By: #### 5 8077-9 #### TITUS Mercado (15351) [facility] ([facility]) [address] [place] [address] 97362 Nitrite Auto test strip Ql (U) Negative Normal NEGATIVE [facility] Comment on above: Performed By: #### 5 8077-9 #### TITUS SOLORZANO L ([id number]) [facility] ([facility]) [address] [place] [address] 12176 pH (U) 5.5 [pH] Normal 5.0, 5.5, 6.0, 6.5, 7.0, 7.5, 8.0 [facility] Comment on above: Performed By: #### 5 8077-9 #### TITUS SOLORZANO L (08110) [facility] ([facility]) [address] [place] [address] 13643 Protein (U) [Mass/Vol] Negative Normal NEGAT KURT, 10 (TRACE), 20 (TRACE) [facility] Comment on above: Performed By: #### 5 8077-9 #### TITUS ORTIZTZER L (09435) [facility] ([facility]) [address] [place] [address] 54049 RBC (U) [#/Vol] Negative Normal NEGATIVE [facility] Comment on above: Performed By: #### 5 8077-9 #### TITUS SCHMOTZER L (60029) [facility] ([facility]) [address] [place] [address] 99757 Specific gravity (U) [Rel density] 1.007 Normal 1.005-1.03 5 [facility] Comment on above: Performed By: #### 5 8077-9 #### TITUS PAYANMOTZER L (28904) [facility] ([facility]) [address] [place] [address] 68924 Urobilinogen (U) [Mass/Vol] Normal Normal Normal [facility] Comment on above: Performed By: #### 5 8077-9 #### TITUS PAYANMOTZER L (82132) [facility] ([facility]) [address] [place] [address] 82554 MR BRAIN TUMOR PERFUSION PRO TOCOL W AND WO IV CONTRASTon 12-13-2023 MR BRAIN TUMOR PERFUSION PROTOCOL W AND WO IV CONTRAST Interpreted By: Nate Benavidez, STUDY: MR BRAIN TUMOR PERFUSION PROTOCOL W AND WO IV CONTRAST; 12/13/2023 8:49 am INDICATION: Signs/Symptoms:pontine lesion, imaging surveillance. COMPARISON: None. ACCESSION NUMBER(S): [id number] ORDERING CLINICIAN: SHIMON HEATON TECHNIQUE: Axial diffusion, [...] Nate Benavidez 12/13/2023 9:38 AM Dictation workstation: [id number] [facility] Comment on above: Order Comment: JESSICA huerta cc'd to [place] MR Brain for new diagnosis t umor [...] Nate Benavidez 12/13/2023 9:38 AM Dictation workstation: [id number] Interpreted By: Nate Dejesus, STUDY: MR BRAIN TUMOR PERFUSION PROTOCOL W AND WO IV CONTRAST; 12/13/2023 8:49 am INDICATION: Signs/Symptoms:pontine lesion, imaging surveillance. COMPARISON: None. ACCESSION NUMBER(S): [id number] ORDERING CLINICIAN: SHIMON HEATON TECHNIQUE: Axial diffusion, [...] lesion, imaging surveillance. COMPARISON: None. ACCESSION NUMBER(S): [id number] ORDERING CLINICIAN: SHIMON HEATON TECHNIQUE: Axial diffusion, [...] Nate Benavidez 12/13/2023 9:38 AM Dictation workstation: [id number] [facility] Work Phone: Radiology Study observation (narrative) [facility] Work Phone: MR Brain for new diagnosis t umor WO and W contrast IVOrdered By: Nate Benavidez on 12-13-2023 [facility] Work Phone: Basophils Auto (Bld) [#/Vol] on 10-26-2023 Basophils (Bld) [#/Vol] 0.04 10*3/uL <0.11 [facility] Basophils/100 WBC Auto (Bld) on 10-26-2023 Basophils/100 WBC (Bld) 0.5 % [facility] Blood manual differential co mment interpretation narrativeon 10-26-2023 Manual differential comment Curtis (Bld) [Interp] Auto [facility] CBC W Auto Differential pane l (Bld)on 10-26-2023 Basophils (Bld) [#/Vol] 0.04 10*3/uL [facility] Basophils/100 WBC (Bld) 0.5 % [facility] Differential cell count method Nom (Bld) Auto [facility] Eosinophils (Bld) [#/Vol] 0.13 10*3/uL [facility] Eosinophils/100 WBC (Bld) 1.5 % [facility] Erythrocyte distribution width (RBC) [Ratio] 13.8 % 11.5 - 15.0 % [facility] Hematocrit (Bld) [Volume fraction] 42.6 % 39.0 - 51.0 % [facility] Hemoglobin (Bld) [Mass/Vol] 14.4 g/dL 13.0 - 17.0 g/dL [facility] Immature granulocytes (Bld) [#/Vol] 0.03 10*3/[facility]L [facility] Immature granulocytes/100 WBC (Bld) 0.3 % [facility] Lymphocytes (Bld) [#/Vol] 2.18 10*3/uL [facility] Lymphocytes/100 WBC (Bld) 24.8 % [facility] MCH (RBC) [Entitic mass] 32.0 pg 26.0 - 34.0 pg [facility] MCHC (RBC) [Mass/Vol] 33.8 g/dL 30.5 - 36.0 g/dL [facility] MCV (RBC) [Entitic vol] 94.7 fL 80.0 - 100.0 fL [facility] Monocytes (Bld) [#/Vol] 0.60 10*3/uL NINF [facility] Monocytes/100 WBC (Bld) 6.8 % [facility] Neutrophils (Bld) [#/Vol] 5.80 10*3/uL [facility] Neutrophils/100 WBC (Bld) 66.1 % [facility] Nucleated RBC (Bld) [#/Vol] NINF [facility] Nucleated RBC/100 WBC (Bld) [Ratio] 0.0 % /100 WBC [facility] Platelet mean volume (Bld) [Entitic vol] 10.2 fL 9.0 - 12.7 fL [facility] Platelets (Bld) [#/Vol] 314 10*3/uL [facility] RBC (Bld) [#/Vol] 4.50 10*6/uL 4.20 - 6.00 m/uL [facility] WBC (Bld) [#/Vol] 8.78 10*3/uL [facility] CT Chest W contrast Tristin IMPRESSION: [...] any questions regarding this interpretation, please call [phone]. If you are unable to reach us at the number above, please feel free to contact [facility] e[facility]iology at [phone]. DIVISION OF RADIOLOGY * * *Final Report* [...] No additional findings. DIVISION OF RADIOLOGY Provider, [facility] - 10/26/2023 * * *Final Report* * [...] any questions regarding this interpretation, please call [phone]. If you are unable to reach us at the number above, please feel free to contact [facility] at [phone]. [facility] CT Neck W contrast Tristin 05-1 IMPRESSION: Primary: 1: Expected post-treatment changes in the neck without evidence of recurrent disease in the primary site. Neck: 1: No evidence of abnormal lymph nodes. [email or web address] Transcribe Date/Time: Oct 26 2023 10:15A Dictated by: LIMA LIZ MD This examination was interpreted and the report reviewed and electronically signed by: LIMA LIZ MD on Oct 26 2023 10:35AM EST Thank you for allowing us to participate in the care of your patient. Should there be any questions regarding this interpretation, please call [phone]. If you are unable to reach us at the number above, please feel free to contact [facility] at [phone]. 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 Resected T1 N1 base [...] normal. Parotid and submandibular spaces are normal. Mallet Cutter spaces appear normal. Infrahyoid Neck: Hypopharynx, larynx, [...] are clear of focal consolidation or mass. 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 Resected T1 N1 base [...] normal. Parotid and submandibular spaces are normal. Mallet Cutter spaces appear normal. Infrahyoid Neck: Hypopharynx, larynx, [...] are clear of focal consolidation or mass. Brim Rounder (topogram) images: Noncontributory IMPRESSION IMPRESSION: Primary: 1: Expected post-treatment changes in the neck without evidence of recurrent disease in the primary site. Neck: 1: No evidence of abnormal lymph nodes. [email or web address] Transcribe Date/Time: Oct 26 2023 10:15A Dictated by: LIMA LIZ MD This examination was interpreted and the report reviewed and electronically signed by: (more content not included)... [facility] CT Neck W contrast IVOrdered By: [facility] Provider on 10-26-2023 [facility] Comprehensive metabolic 2000 panelOrdered By: Pauly Chan on 10-26-2023 Albumin [Mass/Vol] 4.3 g/dL 3.9 - 4.9 g/dL [facility] ALP [Catalytic activity/Vol] 75 U/L 38 - 113 U/L [facility] ALT [Catalytic activity/Vol] 10 U/L 10 - 54 U/L [facility] Anion gap [Moles/Vol] 8 mmol/L Low 9 - 18 mmol/L [facility] AST [Catalytic activity/Vol] 9 U/L Low 14 - 40 U/L [facility] Bilirubin [Mass/Vol] 0.5 mg/dL 0.2 - 1 .3 mg/dL [facility] Calcium [Mass/Vol] 9.9 mg/dL 8.5 - 10. 2 mg/dL [facility] Chloride [Moles/Vol] 106 mmol/L High 97 - 10 5 mmol/L [facility] CO2 [Moles/Vol] 27 mmol/L 22 - 30 mmol/L [facility] Creatinine [Mass/Vol] 1.01 mg/dL 0.73 - 1.22 mg/dL [facility] GFR/1.73 sq M.predicted among non-blacks MDRD (S/P/Bld) [Vol rate/Area] 85 mL/min/{1.73_m2} - PINF [facility] Comment on above: Estimated Glomerular Filtration [...] [Mass/Vol] 89 mg/dL 74 - 99 mg/dL [facility] Comment on above: The [place] Diabete s Association (ADA) provides guidance for [...] Standards of Medical Care in Diabetes 2016, [place] Diabetes Association. Diabetes Care. 2016.39(Suppl 1). Interpretation and review of laboratory results Abnormal [facility] Potassium [Moles/Vol] 4.0 mmol/L 3.7 - 5.1 mmol/L [facility] Protein [Mass/Vol] 6.4 g/dL 6.3 - 8.0 g/dL [facility] Sodium [Moles/Vol] 141 mmol/L 136 - 144 mmol/L [facility] Urea nitrogen [Mass/Vol] 16 mg/dL 9 - 24 mg/dL [facility] Eosinophils/100 WBC Auto (Bl d)on 10-26-2023 Eosinophils/100 WBC (Bld) 1.5 % [facility] Erythrocyte distribution wid th Auto (RBC) [Ratio]on 10-26-2023 Erythrocyte distribution width (RBC) [Ratio] 13.8 % 11.5-15.0 [facility] Hematocrit Auto (Bld) [Volum e fraction]on 10-26-2023 Hematocrit (Bld) [Volume fraction] 42.6 % 39.0-51.0 [facility] Hemoglobin [Mass/volume] in Bloodon 10-26-2023 Hemoglobin (Bld) [Mass/Vol] 14.4 g/dL 13.0-17.0 [facility] Laboratory - Chemistry and C hemistry - challengeon 10-26-2023 Albumin [Mass/Vol] 4.3 g/dL 3.9-4.9 [facility] ALP [Catalytic activity/Vol] 75 U/L 38-113 [facility] ALT [Catalytic activity/Vol] 10 U/L 10-54 [facility] AST [Catalytic activity/Vol] 9 U/L 14-40 [facility] Bilirubin [Mass/Vol] 0.5 mg/dL 0.2-1.3 [facility] Calcium [Mass/Vol] 9.9 mg/dL 8.5-10.2 [facility] Chloride [Moles/Vol] 106 mmol/L 97-105 [facility] CO2 [Moles/Vol] 27 mmol/L 22-30 [facility] Creatinine [Mass/Vol] 1.01 mg/dL 0.73-1.22 [facility] Glucose [Mass/Vol] 89 mg/dL 74-99 [facility] Comment on above: The [place] Diabete s Association (ADA) provides guidance for [...] Standards of Medical Care in Diabetes 2016, [place] Diabetes Association. Diabetes Care. 2016.39(Suppl 1). Potassium [Moles/Vol] 4.0 mmol/L 3.7-5.1 [facility] Sodium [Moles/Vol] 141 mmol/L 136-144 [facility] Urea nitrogen [Mass/Vol] 16 mg/dL 9-24 [facility] Laboratory - Hematology and Cell countson 10-26-2023 Eosinophils (Bld) [#/Vol] 0.13 10*3/uL <0.46 [facility] Immature granulocytes (Bld) [#/Vol] 0.03 10*3/uL <0.10 [facility] Immature granulocytes/100 WBC (Bld) 0.3 % [facility] Leukocytes [#/volume] correc mone for nucleated erythrocytes in Blood by Automated counon 10-26-2023 WBC corrected for nucl RBC Auto (Bld) [#/Vol] 8.78 k/uL 3.70-11.00 [facility] Lymphocytes Auto (Bld) [#/Vo l]on 10-26-2023 Lymphocytes (Bld) [#/Vol] 2.18 10*3/uL 1.00-4.00 [facility] Lymphocytes/100 WBC Auto (Bl d)on 10-26-2023 Lymphocytes/100 WBC (Bld) 24.8 % [facility] MCH Auto (RBC) [Entitic mass ]on 10-26-2023 MCH (RBC) [Entitic mass] 32.0 pg 26.0-34.0 [facility] MCHC Auto (RBC) [Mass/Vol]on 10-26-2023 MCHC (RBC) [Mass/Vol] 33.8 g/dL 30.5-36.0 [facility] MCV Auto (RBC) [Entitic vol] on 10-26-2023 MCV (RBC) [Entitic vol] 94.7 fL 80.0-100.0 [facility] Monocytes Auto (Bld) [#/Vol] on 10-26-2023 Monocytes (Bld) [#/Vol] 0.60 10*3/uL <0.87 [facility] Monocytes/100 WBC Auto (Bld) on 10-26-2023 Monocytes/100 WBC (Bld) 6.8 % [facility] Neutrophils Auto (Bld) [#/Vo l]on 10-26-2023 Neutrophils (Bld) [#/Vol] 5.80 10*3/uL 1.45-7.50 [facility] Neutrophils/100 WBC Auto (Bl d)on 10-26-2023 Neutrophils/100 WBC (Bld) 66.1 % [facility] No Panel Informationon 10-25 Radiology Study observation (narrative) [facility] Estimated GFR (CKD-EPI) 85 mL/min/1.73m??? >=60 [facility] Comment on above: Estimated Glomerular Filtration [...] 10-26-2023 Nucleated RBC (Bld) [#/Vol] 10*3/uL <0.01 [facility] Nucleated erythrocytes [Pres ence] in Blood by Automated counton 10-26-2023 Nucleated RBC Auto Ql (Bld) 0.0 /100{WBC} [facility] Platelet mean volume Auto (B ld) [Entitic vol]on 10-26-2023 Platelet mean volume (Bld) [Entitic vol] 10.2 fL 9.0-12.7 [facility] Platelets Auto (Bld) [#/Vol] on 10-26-2023 Platelets (Bld) [#/Vol] 314 10*3/uL 150-400 [facility] Protein [Mass/volume] in Ser um or Plasmaon 10-26-2023 Protein [Mass/Vol] 6.4 g/dL 6.3-8.0 [facility] RBC Auto (Bld) [#/Vol]on RBC (Bld) [#/Vol] 4.50 10*6/uL 4.20-6.00 [facility] Serum or plasma anion gap de terminationon 10-26-2023 Anion gap [Moles/Vol] 8 mmol/L 9-18 [facility] Alanine aminotransferase [En zymatic activity/volume] in Serum or PlasmaOrdered By: Griselda Hastings on 10-09-2023 ALT [Catalytic activity/Vol] 8 U/L 7-52 [facility] Albumin [Mass/volume] in Ser um or Plasma by Bromocresol green (BCG) dye binding methoOrdered By: Griselda Hastings on 10-09-2023 Albumin BCG dye [Mass/Vol] 3.9 g/dL 3.5-5.7 [facility] Alkaline phosphatase [Enzyma tic activity/volume] in Serum or PlasmaOrdered By: Griselda Hastings on 10-09-2023 ALP [Catalytic activity/Vol] 59 U/L 34-104 [facility] Aspartate aminotransferase [ Enzymatic activity/volume] in Serum or PlasmaOrdered By: Griselda Hastings on 10-09-2023 AST [Catalytic activity/Vol] 7 U/L 13-39 [facility] Basophils Auto (Bld) [#/Vol] Ordered By: Griselda Hastings on 10-09-2023 Basophils (Bld) [#/Vol] 0.1 10*3/uL 0.0-0.2 [facility] Basophils/100 WBC Auto (Bld) Ordered By: Griselda Hastings on 10-09-2023 Basophils/100 WBC (Bld) 0.9 % . [facility] Bilirubin.total [Mass/volume ] in Serum or PlasmaOrdered By: Griselda Hastings on 10-09-2023 Bilirubin [Mass/Vol] 0.5 mg/dL 0.3-1.0 [facility] COVID-19 Detected/Not Detect edOrdered By: Griselda Hastings on 10-09-2023 SARS-CoV-2 (COVID-19) RNA JER+non-probe Ql (Nph) Not detected Not Detecte [facility] Comment on above: This is a duplicate RP2.1 COVID (PCR) result to be used for statistical tracking purpose only. Calcium [Mass/volume] in Ser um or PlasmaOrdered By: Griselda Hastings on 10-09-2023 Calcium [Mass/Vol] 9.5 mg/dL 8.6-10.3 [facility] Carbon dioxide, total [Moles /volume] in Serum or PlasmaOrdered By: Griselda Hastings on 10-09-2023 CO2 [Moles/Vol] 30.0 mmol/L 21.0-31.0 [facility] Chloride [Moles/volume] in S rica or PlasmaOrdered By: Griselda Hastings on 10-09-2023 Chloride [Moles/Vol] 103 mmol/L 98-107 [facility] Creatinine [Mass/volume] in Serum or PlasmaOrdered By: Griselda Hastings on 10-09-2023 Creatinine [Mass/Vol] 0.92 mg/dL 0.70-1.30 [facility] Eosinophils Auto (Bld) [#/Vo l]Ordered By: Griselda Hastings on 10-09-2023 Eosinophils (Bld) [#/Vol] 0.1 10*3/uL 0.0-0.45 [facility] Eosinophils/100 WBC Auto (Bl d)Ordered By: Griselda Hastings on 10-09-2023 Eosinophils/100 WBC (Bld) 1.0 % . [facility] Erythrocyte distribution wid th Auto (RBC) [Ratio]Ordered By: Griselda Hastings on 10-09-2023 Erythrocyte distribution width (RBC) [Ratio] 14.3 % 12.0-14.8 [facility] Globulin Calc (S) [Mass/Vol] Ordered By: Griselda Hastings on 10-09-2023 Globulin (S) [Mass/Vol] 2.0 g/dL [facility] Glucose [Mass/volume] in Ser um or PlasmaOrdered By: Griselda Hastings on 10-09-2023 Glucose [Mass/Vol] 84 mg/dL 70-100 [facility] Comment on above: ADA recommended refe rence rangeRandom Glucose Reference Range is dependent on time and content of last meal. Glucose of more than 200 mg/dL in a nonstressed, ambulatory subject supports the diagnosis of Diabetes Mellitus. Hematocrit Auto (Bld) [Volum e fraction]Ordered By: Griselda Hastings on 10-09-2023 Hematocrit (Bld) [Volume fraction] 41.9 % 38.8-50.0 [facility] Hemoglobin [Mass/volume] in BloodOrdered By: Griselda Hastings on 10-09-2023 Hemoglobin (Bld) [Mass/Vol] 14.4 g/dL 13.0-17.0 [facility] Leukocytes [#/volume] correc mone for nucleated erythrocytes in Blood by Automated counOrdered By: Griselda Hastings on 10-09-2023 WBC corrected for nucl RBC Auto (Bld) [#/Vol] 8.1 10*3/uL 4.1-10.5 [facility] Lymphocytes Auto (Bld) [#/Vo l]Ordered By: Griselda Hastings on 10-09-2023 Lymphocytes (Bld) [#/Vol] 2.7 10*3/uL 1.00-4.8 [facility] Lymphocytes/100 WBC Auto (Bl d)Ordered By: Griselda Hastings on 10-09-2023 Lymphocytes/100 WBC (Bld) 33.6 % . [facility] MCH Auto (RBC) [Entitic mass ]Ordered By: Griselda Hastings on 10-09-2023 MCH (RBC) [Entitic mass] 32.7 pg 27.5-35.2 [facility] MCHC Auto (RBC) [Mass/Vol]Or dered By: Griselda Hastings on 10-09-2023 MCHC (RBC) [Mass/Vol] 34.4 g/dL 32.5-35.6 [facility] MCV Auto (RBC) [Entitic vol] Ordered By: Griselda Hastings on 10-09-2023 MCV (RBC) [Entitic vol] 94.8 fL 83.5-101 [facility] Monocytes Auto (Bld) [#/Vol] Ordered By: Griselda Hastings on 10-09-2023 Monocytes (Bld) [#/Vol] 0.6 10*3/uL 0.0-0.8 [facility] Monocytes/100 WBC Auto (Bld) Ordered By: Griselda Hastings on 10-09-2023 Monocytes/100 WBC (Bld) 7.5 % . [facility] Neutrophils Auto (Bld) [#/Vo l]Ordered By: Griselda Hastings on 10-09-2023 Neutrophils (Bld) [#/Vol] 4.6 10*3/uL 1.8-7.7 [facility] Neutrophils/100 WBC Auto (Bl d)Ordered By: Griselda Hastings on 10-09-2023 Neutrophils/100 WBC (Bld) 57.0 % . [facility] No Panel InformationOrdered By: Griselda Hastings on 10-09-2023 Estimated GFR (CKD-EPI) > 60.0 mL/Min [facility] Creatinine Clearance (Chem N/A [facility] Nucleated erythrocytes [Pres ence] in Blood by Automated countOrdered By: Griselda Hastings on 10-09-2023 Nucleated RBC Auto Ql (Bld) 0.2 /100{WBC} 0-0.5 [facility] Platelet mean volume Auto (B ld) [Entitic vol]Ordered By: Griselda Hastings on 10-09-2023 Platelet mean volume (Bld) [Entitic vol] 8.3 fL 6.6-10.1 [facility] Platelets Auto (Bld) [#/Vol] Ordered By: Griselda Hastings on 10-09-2023 Platelets (Bld) [#/Vol] 349 10*3/uL 150-450 [facility] Potassium [Moles/volume] in Serum or PlasmaOrdered By: Griselda Hastings on 10-09-2023 Potassium [Moles/Vol] 4.5 mmol/L 3.5-5.1 [facility] Protein [Mass/volume] in Ser um or PlasmaOrdered By: Griselda Hastings on 10-09-2023 Protein [Mass/Vol] 5.9 g/dL 6.4-8.9 [facility] RBC Auto (Bld) [#/Vol]Ordere d By: Griselda Hastings on 10-09-2023 RBC (Bld) [#/Vol] 4.42 10*6/uL 3.90-5.60 [facility] Respiratory pathogens DNA an d RNA panel - Nasopharynx by JER with non-probe detectionOrdered By: Griselda Hastings on 10-09-2023 Respiratory pathogens DNA and RNA panel JER+non-probe (Nph) [facility] Serum or plasma albumin/glob ulin mass ratioOrdered By: Griselda Hastings on 10-09-2023 Albumin/Globulin [Mass ratio] 2.0 {ratio} [facility] Serum or plasma anion gap de terminationOrdered By: Griselda Hastings on 10-09-2023 Anion gap [Moles/Vol] 9.5 mmol/L 6.0-15.0 [facility] Sodium [Moles/volume] in Ser um or PlasmaOrdered By: Griselda Hastings on 10-09-2023 Sodium [Moles/Vol] 138 mmol/L 136-145 [facility] Urea nitrogen [Mass/volume] in Serum or PlasmaOrdered By: Griselda Hastings on 10-09-2023 Urea nitrogen [Mass/Vol] 14 mg/dL 7-25 [facility] WBC Auto (Bld) [#/Vol]Ordere d By: Griselda Hastings on 10-09-2023 WBC (Bld) [#/Vol] 8.1 10*3/uL 4.1-10.5 [facility] Study Interpretation of outs jeffrey [...] (COVID-19) RNA JER+probe Ql (Unsp spec) Negative [employer] Other COVID + FLU Quick Testing Negative [employer] Other Quick Strepon 07-02-2023 S. pyogenes Org specific cx Ql (Throat) Negative [employer] Other Quick Strep [employer] Other RSVon 07-02-2023 RSV Ag IA Ql (Unsp spec) Negative [employer] Other Creatinine [Mass/volume] in Serum or PlasmaOrdered By: Ruddy Harvey on 05-07-2023 Creatinine [Mass/Vol] 0.91 mg/dL 0.70-1.30 [facility] No Panel InformationOrdered By: Ruddy Harvey on 05-07-2023 Estimated GFR (CKD-EPI) > 60.0 mL/Min [facility] Creatinine Clearance (Chem 83.52 [facility] Urea nitrogen [Mass/volume] in Serum or PlasmaOrdered By: Ruddy Harvey on 05-07-2023 Urea nitrogen [Mass/Vol] 15 mg/dL 7-25 [facility] Creatinine (Bld) [Mass/Vol]O rdered By: Nikole Mota on 05-04-2023 Creatinine [Mass/Vol] 0.9 mg/dL 0.6-1.3 [facility] Comment on above: ER/ESD physician is notified/shown all ISTAT results.Critical values may be confirmed by laboratory testing ifdeemed necessary by ER attending doctor. No Panel InformationOrdered By: Nikole Mota on 11-17-2023 Bedside Estimated GFR (eGFR) > 60.0 [facility] Alanine aminotransferase [En zymatic activity/volume] in Serum or PlasmaOrdered By: Griselda Hastings on 03-30-2023 ALT [Catalytic activity/Vol] 10 U/L 7-52 [facility] Albumin [Mass/volume] in Ser um or Plasma by Bromocresol green (BCG) dye binding methoOrdered By: Griselda Hastings on 03-30-2023 Albumin BCG dye [Mass/Vol] 4.2 g/dL 3.5-5.7 [facility] Alkaline phosphatase [Enzyma tic activity/volume] in Serum or PlasmaOrdered By: Griselda Hastings on 03-30-2023 ALP [Catalytic activity/Vol] 61 U/L 34-104 [facility] Aspartate aminotransferase [ Enzymatic activity/volume] in Serum or PlasmaOrdered By: Griselda Hastings on 03-30-2023 AST [Catalytic activity/Vol] 8 U/L 13-39 [facility] Basophils Auto (Bld) [#/Vol] Ordered By: Griselda Hastings on 03-30-2023 Basophils (Bld) [#/Vol] 0.1 10*3/uL 0.0-0.2 [facility] Basophils/100 WBC Auto (Bld) Ordered By: Griselda Hastings on 03-30-2023 Basophils/100 WBC (Bld) 0.8 % . [facility] Bilirubin.total [Mass/volume ] in Serum or PlasmaOrdered By: Griselda Hastings on 03-30-2023 Bilirubin [Mass/Vol] 0.9 mg/dL 0.3-1.0 [facility] Calcium [Mass/volume] in Ser um or PlasmaOrdered By: Griselda Hastings on 03-30-2023 Calcium [Mass/Vol] 9.1 mg/dL 8.6-10.3 [facility] Carbon dioxide, total [Moles /volume] in Serum or PlasmaOrdered By: Griselda Hastings on 03-30-2023 CO2 [Moles/Vol] 27.0 mmol/L 21.0-31.0 [facility] Chloride [Moles/volume] in S rica or PlasmaOrdered By: Griselda Hastings on 03-30-2023 Chloride [Moles/Vol] 103 mmol/L 98-107 [facility] Cholesterol [Mass/volume] in Serum or PlasmaOrdered By: Griselda Hastings on 03-30-2023 Cholesterol [Mass/Vol] 224 mg/dL 140-200 [facility] Comment on above: Chol less than 200 m g/dl low riskChol 201-239 mg/dl borderline riskChol 240 mg/dl and greater high risk Cholesterol in LDL Calc [Mas s/Vol]Ordered By: Griselda Hastings on 03-30-2023 Cholesterol in LDL [Mass/Vol] 148 mg/dL 0-100 [facility] Comment on above: LDL ATP III CLASSIFI CATIONLDL less than 100 mg/dL OptimalLDL 100-129 mg/dL Near or above optimalLDL 130-159 mg/dL Borderline highLDL 160-189 mg/dL HighLDL greater than 189 mg/dL Very high Cholesterol in VLDL Calc [Ma ss/Vol]Ordered By: Griselda Hastings on 03-30-2023 Cholesterol in VLDL [Mass/Vol] 31 mg/dL [facility] Creatinine [Mass/volume] in Serum or PlasmaOrdered By: Griselda Hastings on 03-30-2023 Creatinine [Mass/Vol] 0.82 mg/dL 0.70-1.30 [facility] Eosinophils Auto (Bld) [#/Vo l]Ordered By: Griselda Hastings on 03-30-2023 Eosinophils (Bld) [#/Vol] 0.1 10*3/uL 0.0-0.45 [facility] Eosinophils/100 WBC Auto (Bl d)Ordered By: Griselda Hastings on 03-30-2023 Eosinophils/100 WBC (Bld) 0.6 % . [facility] Erythrocyte distribution wid th Auto (RBC) [Ratio]Ordered By: Griselda Hastings on 03-30-2023 Erythrocyte distribution width (RBC) [Ratio] 14.1 % 12.0-14.8 [facility] Globulin Calc (S) [Mass/Vol] Ordered By: Griselda Hastings on 03-30-2023 Globulin (S) [Mass/Vol] 1.9 g/dL [facility] Glucose [Mass/volume] in Ser um or PlasmaOrdered By: Griselda Hastings on 03-30-2023 Glucose [Mass/Vol] 83 mg/dL 70-100 [facility] Comment on above: ADA recommended refe rence rangeRandom Glucose Reference Range is dependent on time and content of last meal. Glucose of more than 200 mg/dL in a nonstressed, ambulatory subject supports the diagnosis of Diabetes Mellitus. Hematocrit Auto (Bld) [Volum e fraction]Ordered By: Griselda Hastings on 03-30-2023 Hematocrit (Bld) [Volume fraction] 41.4 % 38.8-50.0 [facility] Hemoglobin [Mass/volume] in BloodOrdered By: Griselda Hastings on 03-30-2023 Hemoglobin (Bld) [Mass/Vol] 14.4 g/dL 13.0-17.0 [facility] Leukocytes [#/volume] correc mone for nucleated erythrocytes in Blood by Automated counOrdered By: Griselda Hastings on 03-30-2023 WBC corrected for nucl RBC Auto (Bld) [#/Vol] 10.0 10*3/uL 4.1-10.5 [facility] Lymphocytes Auto (Bld) [#/Vo l]Ordered By: Griselda Hastings on 03-30-2023 Lymphocytes (Bld) [#/Vol] 1.7 10*3/uL 1.00-4.8 [facility] Lymphocytes/100 WBC Auto (Bl d)Ordered By: Griselda Hastings on 03-30-2023 Lymphocytes/100 WBC (Bld) 16.8 % . [facility] MCH Auto (RBC) [Entitic mass ]Ordered By: Griselda Hastings on 03-30-2023 MCH (RBC) [Entitic mass] 33.9 pg 27.5-35.2 [facility] MCHC Auto (RBC) [Mass/Vol]Or dered By: Griselda Hastings on 03-30-2023 MCHC (RBC) [Mass/Vol] 34.9 g/dL 32.5-35.6 [facility] MCV Auto (RBC) [Entitic vol] Ordered By: Griselda Hastings on 03-30-2023 MCV (RBC) [Entitic vol] 97.1 fL 83.5-101 [facility] Monocytes Auto (Bld) [#/Vol] Ordered By: Grisedla Hastings on 03-30-2023 Monocytes (Bld) [#/Vol] 0.8 10*3/uL 0.0-0.8 [facility] Monocytes/100 WBC Auto (Bld) Ordered By: Griselda Hastings on 03-30-2023 Monocytes/100 WBC (Bld) 8.0 % . [facility] Neutrophils Auto (Bld) [#/Vo l]Ordered By: Griselda Hastings on 03-30-2023 Neutrophils (Bld) [#/Vol] 7.3 10*3/uL 1.8-7.7 [facility] Neutrophils/100 WBC Auto (Bl d)Ordered By: Griselda Hastings on 03-30-2023 Neutrophils/100 WBC (Bld) 73.8 % . [facility] No Panel InformationOrdered By: Griselda Hastings on 03-30-2023 Estimated GFR (CKD-EPI) > 60.0 mL/Min [facility] Creatinine Clearance (Chem N/A [facility] Nucleated erythrocytes [Pres ence] in Blood by Automated countOrdered By: Griselda Hastings on 03-30-2023 Nucleated RBC Auto Ql (Bld) 0.1 /100{WBC} 0-0.5 [facility] Platelet mean volume Auto (B ld) [Entitic vol]Ordered By: Griselda Hastings on 03-30-2023 Platelet mean volume (Bld) [Entitic vol] 9.2 fL 6.6-10.1 [facility] Platelets Auto (Bld) [#/Vol] Ordered By: Griselda Hastings on 03-30-2023 Platelets (Bld) [#/Vol] 221 10*3/uL 150-450 [facility] Potassium [Moles/volume] in Serum or PlasmaOrdered By: Griselda Hastings on 03-30-2023 Potassium [Moles/Vol] 4.1 mmol/L 3.5-5.1 [facility] Protein [Mass/volume] in Ser um or PlasmaOrdered By: Griselda Hastings on 03-30-2023 Protein [Mass/Vol] 6.1 g/dL 6.4-8.9 [facility] RBC Auto (Bld) [#/Vol]Ordere d By: Griselda Hastings on 03-30-2023 RBC (Bld) [#/Vol] 4.26 10*6/uL 3.90-5.60 [facility] Serum or plasma albumin/glob ulin mass ratioOrdered By: Griselda Hastings on 03-30-2023 Albumin/Globulin [Mass ratio] 2.2 {ratio} [facility] Serum or plasma anion gap de terminationOrdered By: Griselda Hastings on 03-30-2023 Anion gap [Moles/Vol] 12.1 mmol/L 6.0-15.0 [facility] Serum or plasma high density lipoprotein (HDL) cholesterol measurementOrdered By: Griselda Hastings on 03-30-2023 Cholesterol in HDL [Mass/Vol] 44 mg/dL 23-92 [facility] Comment on above: HDL CHOL ATP-III CLA SSIFICATION Cardiovascular RiskHDL > or equal to 60 mg/dL LOWHDL < 40 mg/dL HIGH Serum or plasma total choles terol/high density lipoprotein (HDL) cholesterol mass ratOrdered By: Griselda Hastings on 03-30-2023 Cholesterol.total/Chol esterol in HDL [Mass ratio] 5.1 {ratio} <5.0 [facility] Sodium [Moles/volume] in Ser um or PlasmaOrdered By: Griselda Hastings on 03-30-2023 Sodium [Moles/Vol] 138 mmol/L 136-145 [facility] Thyrotropin [Units/volume] i n Serum or PlasmaOrdered By: Griselda Hastings on 03-30-2023 TSH Qn 0.93 m[IU]/L 0.45-5.33 [facility] Triglyceride [Mass/volume] i n Serum or PlasmaOrdered By: Griselda Hastings on 03-30-2023 Triglyceride [Mass/Vol] 159 mg/dL 0-149 [facility] Comment on above: TRIG ATP III CLASSIF ICATIONTRIG less than 150 mg/dL NormalTRIG 150-199 mg/dL Borderline highTRIG 200-500 mg/dL High TRIG greater than 500 mg/dL Very highStandard traceable to the Center for Disease Conrtrol and Prevention (CDC) test method. Urea nitrogen [Mass/volume] in Serum or PlasmaOrdered By: Griselda Hastings on 03-30-2023 Urea nitrogen [Mass/Vol] 10 mg/dL 7-25 [facility] WBC Auto (Bld) [#/Vol]Ordere d By: Griselda Hastings on 03-30-2023 WBC (Bld) [#/Vol] 10.0 10*3/uL 4.1-10.5 [facility] COVID-19 SOFIAOrdered By: Brandyn Gaytan on 02-26-2023 SARS-CoV+SARS-CoV-2 (COVID-19) Ag IA.rapid Ql (Resp) Negative Negative [facility] Comment on above: This is a duplicate Anna SARS Antigen (JAMILA) result to be used for statistical tracking purpose only. No Panel InformationOrdered By: Daniel Gaytan on 02-26-2023 SARS Antigen (LFIA) [facility] SARS Antigen (LFIA) [facility] No Panel Informationon 12-28 XR Pain Management C ase (Reference Range: not available) *FINAL Date of Service: 12/28/2022 08:49 Adm #: [id number] Reading Dr:RICARDO CAPPS Signoff Dr: RICARDO CAPPS PROCEDURE: PAIN MANAGEMENT CASE - BXR [id number] REASON FOR EXAM: SPONDYLOSIS W/O MYELOPATHY OR RADICULOPATHY, CERVICAL REGION RESULT: Patient Name: SHANTEL MELENDEZ STUDY: PAIN MANAGEMENT CASE INDICATION: SPONDYLOSIS W/O MYELOPATHY OR RADICULOPATHY, CERVICAL REGION COMPARISON: None. ACCESSION NUMBER(S): [id number] ORDERING CLINICIAN: LIMA JOSEPH TECHNIQUE: See below: FINDINGS: Fluoroscopy was provided during therapeutic puncture in the region of the cervical spine for pain management. Total fluoroscopy time: 14.56mgy, images: 4. IMPRESSION: Fluoroscopy for pain management. Dictation workstation: [id number] Original Interpreting Physician: RICARDO CAPPS M.D. Original Transcribed by/Date: MMODAL Dec 28 2022 6:14A Original Electronically Signed by/Date: RICARDO CAPPS M.D. Dec 28 2022 9:04A Addendum Interpreting Physician: Addendum Transcribed by/Date: NO ADDENDUM Addendum Electronically Signed by/Date: [facility] Quick Strepon 12-05-2022 S. pyogenes Org specific cx Ql (Throat) Negative [employer] Other Quick Strep [employer] Other CT Chest W contrast Tristin IMPRESSION: [...] any questions regarding this interpretation, please call [phone]. If you are unable to reach us at the number above, please feel free to contact [facility] at [phone]. DIVISION OF RADIOLOGY * * *Final Report* [...] No abnormality in the imaged upper abdomen. Brim Rounder (topogram) images: No additional findings. DIVISION OF RADIOLOGY Provider, [facility] - 10/30/2022 * * *Final Report* * [...] No abnormality in the imaged upper abdomen. Brim Rounder (topogram) images: No additional findings. IMPRESSION IMPRESSION: [...] any questions regarding this interpretation, please call [phone]. If you are unable to reach us at the number above, please feel free to contact [facility] eRadiology at [phone]. [facility] CBC W Auto Differential pane l (Bld)on 10-27-2022 Basophils (Bld) [#/Vol] 0.03 10*3/uL [facility] Basophils/100 WBC (Bld) 0.3 % [facility] Differential cell count method Nom (Bld) Auto [facility] Eosinophils (Bld) [#/Vol] 0.06 10*3/uL [facility] Eosinophils/100 WBC (Bld) 0.7 % [facility] Erythrocyte distribution width (RBC) [Ratio] 14.0 % 11.5 - 15.0 % [facility] Hematocrit (Bld) [Volume fraction] 43.5 % 39.0 - 51.0 % [facility] Hemoglobin (Bld) [Mass/Vol] 14.5 g/dL 13.0 - 17.0 g/dL [facility] Immature granulocytes (Bld) [#/Vol] 0.03 10*3/[facility] Immature granulocytes/100 WBC (Bld) 0.3 % [facility] Lymphocytes (Bld) [#/Vol] 2.00 10*3/uL [facility] Lymphocytes/100 WBC (Bld) 21.9 % [facility] MCH (RBC) [Entitic mass] 31.3 pg 26.0 - 34.0 pg [facility] MCHC (RBC) [Mass/Vol] 33.3 g/dL 30.5 - 36.0 g/dL [facility] MCV (RBC) [Entitic vol] 93.8 fL 80.0 - 100.0 fL [facility] Monocytes (Bld) [#/Vol] 0.53 10*3/uL NINF [facility] Monocytes/100 WBC (Bld) 5.8 % [facility] Neutrophils (Bld) [#/Vol] 6.47 10*3/uL [facility] Neutrophils/100 WBC (Bld) 71.0 % [facility] Nucleated RBC (Bld) [#/Vol] NINF [facility] Nucleated RBC/100 WBC (Bld) [Ratio] 0.0 % /100 WBC [facility] Platelet mean volume (Bld) [Entitic vol] 10.8 fL 9.0 - 12.7 fL [facility] Platelets (Bld) [#/Vol] 253 10*3/uL [facility] RBC (Bld) [#/Vol] 4.64 10*6/uL 4.20 - 6.00 m/uL [facility] WBC (Bld) [#/Vol] 9.12 10*3/uL [facility] CT Neck W contrast Tristin 05- IMPRESSION: Primary NIRADS Category: 1. Expected post-treatment changes in the neck without evidence of recurrent disease in the primary site. Neck NIRADS Category: 1. No evidence of abnormal lymph nodes. [email or web address] Transcribe Date/Time: Oct 27 2022 11:56A Dictated by: KALPANA HAMPTON MD This examination was interpreted and the report reviewed and electronically signed by: KALPANA HAMPTON MD on Oct 27 2022 12:14PM EST Thank you for allowing us to participate in the care of your patient. Should there be any questions regarding this interpretation, please call [phone]. If you are unable to reach us at the number above, please feel free to contact [facility] eRadiology at [phone]. 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 Parotid and submandibular spaces are normal. Mallet Cutter spaces appear normal. Infrahyoid Neck: Hypopharynx, larynx, [...] consolidation or mass. 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 Parotid and submandibular spaces are normal. Mallet Cutter spaces appear normal. Infrahyoid Neck: Hypopharynx, larynx, [...] evidence of abnormal lymph nodes. [email or web address] Transcribe Date/Time: Oct 27 2022 11:56A Dictated by: KALPANA HAMPTON MD This examination was interpreted and the report reviewed and electronically signed by: KALPANA HAMPTON MD on Oct 27 2022 12:14PM EST Thank you for allowing us to participate in the care of your patient. Should there be any questions regarding this interpretation, please call [phone]. If you are unable to reach us at the number above, please feel free to contact [facility] eRadiology at [phone]. [facility] CT Neck W contrast IVOrdered By: Dacia Provider on 10-27-2022 [facility] Comprehensive metabolic 2000 panelOrdered By: Kelly Goodson on 10-27-2022 Albumin [Mass/Vol] 4.3 g/dL 3.9 - 4.9 g/dL [facility] ALP [Catalytic activity/Vol] 89 U/L 38 - 113 U/L [facility] ALT [Catalytic activity/Vol] 7 U/L Low 10 - 54 U/L [facility] Anion gap [Moles/Vol] 10 mmol/L 9 - 18 mmol/L [facility] AST [Catalytic activity/Vol] 8 U/L Low 14 - 40 U/L [facility] Bilirubin [Mass/Vol] 0.3 mg/dL 0.2 - 1 .3 mg/dL [facility] Calcium [Mass/Vol] 9.6 mg/dL 8.5 - 10. 2 mg/dL [facility] Chloride [Moles/Vol] 104 mmol/L 97 - 10 5 mmol/L [facility] CO2 [Moles/Vol] 27 mmol/L 22 - 30 mmol/L [facility] Creatinine [Mass/Vol] 0.93 mg/dL 0.73 - 1.22 mg/dL [facility] GFR/1.73 sq M.predicted among non-blacks MDRD (S/P/Bld) [Vol rate/Area] 95 mL/min/{1.73_m2} - PINF [facility] Comment on above: Estimated Glomerular Filtration [...] [Mass/Vol] 98 mg/dL 74 - 99 mg/dL [facility] Comment on above: The [place] Diabete s Association (ADA) provides guidance for [...] Standards of Medical Care in Diabetes 2016, [place] Diabetes Association. Diabetes Care. 2016.39(Suppl 1). Interpretation and review of laboratory results Abnormal [facility] Potassium [Moles/Vol] 4.5 mmol/L 3.7 - 5.1 mmol/L [facility] Protein [Mass/Vol] 6.6 g/dL 6.3 - 8.0 g/dL [facility] Sodium [Moles/Vol] 141 mmol/L 136 - 144 mmol/L [facility] Urea nitrogen [Mass/Vol] 12 mg/dL 9 - 24 mg/dL [facility] No Panel Informationon 10-27 Radiology Study observation (narrative) [facility] Alanine aminotransferase [En zymatic activity/volume] in Serum or PlasmaOrdered By: Griselda Hastings on 10-24-2022 ALT [Catalytic activity/Vol] 7 U/L 7-52 [facility] Albumin [Mass/volume] in Ser um or Plasma by Bromocresol green (BCG) dye binding methoOrdered By: Griselda Hastings on 10-24-2022 Albumin BCG dye [Mass/Vol] 4.2 g/dL 3.5-5.7 [facility] Alkaline phosphatase [Enzyma tic activity/volume] in Serum or PlasmaOrdered By: Griselda Hastings on 10-24-2022 ALP [Catalytic activity/Vol] 76 U/L 34-104 [facility] Aspartate aminotransferase [ Enzymatic activity/volume] in Serum or PlasmaOrdered By: Griselda Hastings on 10-24-2022 AST [Catalytic activity/Vol] 10 U/L 13-39 [facility] Basophils Auto (Bld) [#/Vol] Ordered By: Griselda Hastings on 10-24-2022 Basophils (Bld) [#/Vol] 0.0 10*3/uL 0.0-0.2 [facility] Basophils/100 WBC Auto (Bld) Ordered By: Griselda Hastings on 10-24-2022 Basophils/100 WBC (Bld) 0.9 % . [facility] Bilirubin.total [Mass/volume ] in Serum or PlasmaOrdered By: Griselda Hastings on 10-24-2022 Bilirubin [Mass/Vol] 0.4 mg/dL 0.3-1.0 [facility] Calcium [Mass/volume] in Ser um or PlasmaOrdered By: Griselda Hastings on 10-24-2022 Calcium [Mass/Vol] 9.1 mg/dL 8.6-10.3 [facility] Carbon dioxide, total [Moles /volume] in Serum or PlasmaOrdered By: Griselda Hastings on 10-24-2022 CO2 [Moles/Vol] 28.3 mmol/L 21.0-31.0 [facility] Chloride [Moles/volume] in S r[place] or PlasmaOrdered By: Griselda Hastings on 10-24-2022 Chloride [Moles/Vol] 105 mmol/L 98-107 [facility] Cholesterol [Mass/volume] in Serum or PlasmaOrdered By: Griselda Hastings on 10-24-2022 Cholesterol [Mass/Vol] 240 mg/dL 140-200 [facility] Comment on above: Chol less than 200 m g/dl low riskChol 201-239 mg/dl borderline riskChol 240 mg/dl and greater high risk Cholesterol in LDL Calc [Mas s/Vol]Ordered By: Griselda Hastings on 10-24-2022 Cholesterol in LDL [Mass/Vol] 169 mg/dL 0-100 [facility] Comment on above: LDL ATP III CLASSIFI CATIONLDL less than 100 mg/dL OptimalLDL 100-129 mg/dL Near or above optimalLDL 130-159 mg/dL Borderline highLDL 160-189 mg/dL HighLDL greater than 189 mg/dL Very high Cholesterol in VLDL Calc [Ma ss/Vol]Ordered By: Griselda Hastings on 10-24-2022 Cholesterol in VLDL [Mass/Vol] 35 mg/dL [facility] Creatinine [Mass/volume] in Serum or PlasmaOrdered By: Griselda Hastings on 10-24-2022 Creatinine [Mass/Vol] 0.88 mg/dL 0.70-1.30 [facility] Eosinophils Auto (Bld) [#/Vo l]Ordered By: Griselda Hastings on 10-24-2022 Eosinophils (Bld) [#/Vol] 0.1 10*3/uL 0.0-0.45 [facility] Eosinophils/100 WBC Auto (Bl d)Ordered By: Griselda Hastings on 10-24-2022 Eosinophils/100 WBC (Bld) 2.0 % . [facility] Erythrocyte distribution wid th Auto (RBC) [Ratio]Ordered By: Griselda Hastings on 10-24-2022 Erythrocyte distribution width (RBC) [Ratio] 14.7 % 12.0-14.8 [facility] Globulin Calc (S) [Mass/Vol] Ordered By: Griselda Hastings on 10-24-2022 Globulin (S) [Mass/Vol] 2.1 g/dL [facility] Glucose [Mass/volume] in Ser um or PlasmaOrdered By: Griselda Hastings on 10-24-2022 Glucose [Mass/Vol] 82 mg/dL 70-100 [facility] Comment on above: ADA recommended refe rence rangeRandom Glucose Reference Range is dependent on time and content of last meal. Glucose of more than 200 mg/dL in a nonstressed, ambulatory subject supports the diagnosis of Diabetes Mellitus. Hematocrit Auto (Bld) [Volum e fraction]Ordered By: Griselda Hastings on 10-24-2022 Hematocrit (Bld) [Volume fraction] 43.4 % 38.8-50.0 [facility] Hemoglobin [Mass/volume] in BloodOrdered By: Griselda Hastings on 10-24-2022 Hemoglobin (Bld) [Mass/Vol] 14.5 g/dL 13.0-17.0 [facility] Leukocytes [#/volume] correc omne for nucleated erythrocytes in Blood by Automated counOrdered By: Griselda Hastings on 10-24-2022 WBC corrected for nucl RBC Auto (Bld) [#/Vol] 5.0 10*3/uL 4.1-10.5 [facility] Lymphocytes Auto (Bld) [#/Vo l]Ordered By: Griselda Hastings on 10-24-2022 Lymphocytes (Bld) [#/Vol] 2.0 10*3/uL 1.00-4.8 [facility] Lymphocytes/100 WBC Auto (Bl d)Ordered By: Griselda Hastings on 10-24-2022 Lymphocytes/100 WBC (Bld) 39.8 % . [facility] MCH Auto (RBC) [Entitic mass ]Ordered By: Griselda Hastings on 10-24-2022 MCH (RBC) [Entitic mass] 31.5 pg 27.5-35.2 [facility] MCHC Auto (RBC) [Mass/Vol]Or dered By: Griselda Hastings on 10-24-2022 MCHC (RBC) [Mass/Vol] 33.5 g/dL 32.5-35.6 [facility] MCV Auto (RBC) [Entitic vol] Ordered By: Griselda Hastings on 10-24-2022 MCV (RBC) [Entitic vol] 94.0 fL 83.5-101 [facility] Monocytes Auto (Bld) [#/Vol] Ordered By: Griselda Hastings on 10-24-2022 Monocytes (Bld) [#/Vol] 0.3 10*3/uL 0.0-0.8 [facility] Monocytes/100 WBC Auto (Bld) Ordered By: Griselda Hastings on 10-24-2022 Monocytes/100 WBC (Bld) 5.4 % . [facility] Neutrophils Auto (Bld) [#/Vo l]Ordered By: Griselda Hastings on 10-24-2022 Neutrophils (Bld) [#/Vol] 2.6 10*3/uL 1.8-7.7 [facility] Neutrophils/100 WBC Auto (Bl d)Ordered By: Griselda Hastings on 10-24-2022 Neutrophils/100 WBC (Bld) 51.9 % . [facility] No Panel InformationOrdered By: Griselda Hastings on 10-24-2022 Estimated GFR (CKD-EPI) > 60.0 mL/Min [facility] Creatinine Clearance (Chem N/A [facility] Nucleated erythrocytes [Pres ence] in Blood by Automated countOrdered By: Griselda Hastings on 10-24-2022 Nucleated RBC Auto Ql (Bld) 0.1 /100{WBC} 0-0.5 [facility] Platelet mean volume Auto (B ld) [Entitic vol]Ordered By: Griselda Hastings on 10-24-2022 Platelet mean volume (Bld) [Entitic vol] 9.6 fL 6.6-10.1 [facility] Platelets Auto (Bld) [#/Vol] Ordered By: Griselda Hastings on 10-24-2022 Platelets (Bld) [#/Vol] 247 10*3/uL 150-450 [facility] Potassium [Moles/volume] in Serum or PlasmaOrdered By: Griselda Hastings on 10-24-2022 Potassium [Moles/Vol] 4.0 mmol/L 3.5-5.1 [facility] Prostate specific Ag [Mass/v olume] in Serum or PlasmaOrdered By: Griselda Hastings on 10-24-2022 Prostate specific Ag [Mass/Vol] 0.370 ng/mL 0.000-4.00 0 [facility] Protein [Mass/volume] in Ser um or PlasmaOrdered By: Griselda Hastings on 10-24-2022 Protein [Mass/Vol] 6.3 g/dL 6.4-8.9 [facility] RBC Auto (Bld) [#/Vol]Ordere d By: Griselda Hastings on 10-24-2022 RBC (Bld) [#/Vol] 4.61 10*6/uL 3.90-5.60 [facility] Serum or plasma albumin/glob ulin mass ratioOrdered By: Griselda Hastings on 10-24-2022 Albumin/Globulin [Mass ratio] 2.0 {ratio} [facility] Serum or plasma anion gap de terminationOrdered By: Griselda Hastings on 10-24-2022 Anion gap [Moles/Vol] 11.7 mmol/L 6.0-15.0 [facility] Serum or plasma high density lipoprotein (HDL) cholesterol measurementOrdered By: Griselda Hastings on 10-24-2022 Cholesterol in HDL [Mass/Vol] 36 mg/dL 29-71 [facility] Comment on above: HDL CHOL ATP-III CLA SSIFICATION Cardiovascular RiskHDL > or equal to 60 mg/dL LOWHDL < 40 mg/dL HIGH Serum or plasma total choles terol/high density lipoprotein (HDL) cholesterol mass ratOrdered By: Griselda Hastings on 10-24-2022 Cholesterol.total/Chol esterol in HDL [Mass ratio] 6.7 {ratio} <5.0 [facility] Sodium [Moles/volume] in Ser um or PlasmaOrdered By: Griselda Hastings on 10-24-2022 Sodium [Moles/Vol] 141 mmol/L 136-145 [facility] Thyrotropin [Units/volume] i n Serum or PlasmaOrdered By: Griselda Hastings on 10-24-2022 TSH Qn 1.26 m[IU]/L 0.45-5.33 [facility] Triglyceride [Mass/volume] i n Serum or PlasmaOrdered By: Griselda Hastings on 10-24-2022 Triglyceride [Mass/Vol] 175 mg/dL 0-149 [facility] Comment on above: TRIG ATP III CLASSIF ICATIONTRIG less than 150 mg/dL NormalTRIG 150-199 mg/dL Borderline highTRIG 200-500 mg/dL High TRIG greater than 500 mg/dL Very highStandard traceable to the Center for Disease Conrtrol and Prevention (CDC) test method. Urea nitrogen [Mass/volume] in Serum or PlasmaOrdered By: Griselda Hastings on 10-24-2022 Urea nitrogen [Mass/Vol] 15 mg/dL 7-25 [facility] WBC Auto (Bld) [#/Vol]Ordere d By: Griselda Hastings on 10-24-2022 WBC (Bld) [#/Vol] 5.0 10*3/uL 4.1-10.5 [facility] BRIEF OP NOTon 09-28-2022 BRIEF OP NOT HNO ID: [id number] Author: Flores Cat APRN.CNP Service: Interventional Radiology Author Type: Nurse Practitioner Type: Brief Op Note Filed: 09/28/2022 3:14 PM Note Text: BRIEF OPERATIVE / PROCEDURE NOTE LOG ID: [id number] SURGERY/PROCEDURE DATE: 09/28/2022 INCISION/PROCEDURE START TIME: 1:58 PM INCISION CLOSE/PROCEDURE END TIME: 2:27 PM SURGEON(S)/PROCEDURALIST( S) AND MANAGER LOAN(S): Surgeon(s) and Role: * Flores Cat APRN.DECORATIVE [employer] - Primary No Additional Staff SURGERY/PROCEDURE(S): LP [...] DIAGNOSIS: Same as Preop SIGNATURE: Flores Cat APRN.DECORATIVE [employer] PATIENT NAME: Shantel Melendez DATE: September 28, 2022 TIME: 3:10 PM [facility] IR LUMBAR PUNCTURE DIAGon IR LUMBAR PUNCTURE DIAG * * *Final Report* * * DATE OF EXAM: Sep 28 2022 2:41PM [facility] [id number] - IR LUMBAR PUNCTURE DIAG / PROCEDURE REASON: NPH (normal pressure hydrocephalus) ([facility]) [G91.2] * * * * Physician [...] was performed in conjunction with the radiology nurse. Plane A, Air Kerma: 20.0 mGy Dose Area Product (DAP): 60107.1 mGy*cm2 Fluoro time: 3:54 min: sec Post-Procedure: [...] procedure was performed by: Flores Cat APRN.CNP Senior Benefits Manager: HARPER Transcribe Date/Time: Sep 28 2022 3:15P Dictated by : FLORES CAT CNP This examination was interpreted and the report reviewed and electronically signed by: FLORES CAT CNP on Sep 28 2022 3:22PM EST [id number] [facility] NURSING PROGon 09-28-2022 NURSING PROG HNO ID: [id number] Author: Court Magana RN Service: Nursing Author [...] Primary Care Provider Electronically Signed By: Court Kraus Haroonjefferson Normal [facility] MRI BRAIN WO/W IVCONon 09-22 [facility] COVID + FLU Quick Testingon 08-01-2022 SARS-CoV-2 (COVID-19) RNA JER+probe Ql (Unsp spec) Negative [facility] [employer] Other COVID + FLU Quick Testing neagative [employer] Other COVID + FLU Quick Testing Negative [employer] Other RSVon 08-01-2022 RSV Ag IA Ql (Unsp spec) Positive [employer] Other Cerebrospinal fluid post-valdez trifugation appearance determinationOrdered By: Oziel Cadena on 07-17-2022 Appearance (Spun CSF) Colorless Colorless [facility] Cerebrospinal fluid sample t ube volume measurementOrdered By: Oziel Cadena on 07-17-2022 Specimen volume (CSF) 22.0 mL [facility] Color CSFOrdered By: Oziel Cadena on 07-17-2022 Color (CSF) Colorless Colorless [facility] Manual cerebrospinal fluid e rythrocytes count (number/volume)Ordered By: Ozeil Cadena on 07-17-2022 RBC Manual cnt (CSF) [#/Vol] 0 /uL [facility] Comment on above: The reference interv al and other method performance specifications have not been established for this body fluid. The test result must be integrated into the clinical context for interpretation. No Panel InformationOrdered By: Oizel Cadena on 07-17-2022 CSF Appearance Clear Clear [facility] CSF Tube Number Tube number: 1 [facility] Nucleated cells [#/volume] i n Cerebral spinal fluid by Manual countOrdered By: Oziel Cadena on 07-17-2022 Nucleated cells Manual cnt (CSF) [#/Vol] 0.003 10*3/uL 0-5 [facility] Activated partial thrombopla stin time (aPTT) in platelet poor plasma by coagulation aOrdered By: Loi Wong on 04-16-2022 aPTT Coag (PPP) [Time] 32.8 s 25.1-36.5 [facility] Basophils Auto (Bld) [#/Vol] Ordered By: Loi Wong on 04-16-2022 Basophils (Bld) [#/Vol] 0.1 10*3/uL 0.0-0.2 [facility] Basophils/100 WBC Auto (Bld) Ordered By: Loi Wong on 04-16-2022 Basophils/100 WBC (Bld) 1.2 % . [facility] Creatine kinase [Enzymatic a ctivity/volume] in Serum or PlasmaOrdered By: Loi Wong on 04-16-2022 CK [Catalytic activity/Vol] 69 U/L 22-269 [facility] Creatinine and Glomerular fi ltration rate.predicted panel (S/P/Bld)Ordered By: Loi Wong on 04-16-2022 Creatinine [Mass/Vol] 0.97 mg/dL 0.64-1.27 [facility] Eosinophils Auto (Bld) [#/Vo l]Ordered By: Loi Wong on 04-16-2022 Eosinophils (Bld) [#/Vol] 0.1 10*3/uL 0.0-0.45 [facility] Eosinophils/100 WBC Auto (Bl d)Ordered By: Loi Wong on 04-16-2022 Eosinophils/100 WBC (Bld) 1.2 % . [facility] Erythrocyte distribution wid th Auto (RBC) [Ratio]Ordered By: Loi Wong on 04-16-2022 Erythrocyte distribution width (RBC) [Ratio] 14.1 % 12.0-14.8 [facility] Estimated glomerular filtrat ion rate (GFR) non- AmericanOrdered By: Loi Wong on 04-16-2022 GFR/1.73 sq M.predicted among non-blacks MDRD (S/P/Bld) [Vol rate/Area] > 60 mL/Min [facility] Hematocrit Auto (Bld) [Volum e fraction]Ordered By: Loi Wong on 04-16-2022 Hematocrit (Bld) [Volume fraction] 43.2 % 38.8-50.0 [facility] Hemoglobin [Mass/volume] in BloodOrdered By: Loi Wong on 04-16-2022 Hemoglobin (Bld) [Mass/Vol] 14.7 g/dL 13.0-17.0 [facility] Laboratory - Chemistry and C hemistry - challengeOrdered By: Loi Wong on 04-16-2022 Natriuretic peptide B (Bld) [Mass/Vol] 29.0 pg/mL 5-100 [facility] Laboratory - CoagulationOrde red By: Loi Wong on 04-16-2022 PT Coag (PPP) [Time] 12.0 s 9.0-12.9 [facility] Laboratory - Hematology and Cell countsOrdered By: Loi Wong on 04-16-2022 Nucleated RBC/100 WBC (Bld) [Ratio] 0.1 % 0-0.5 [facility] Leukocytes [#/volume] in Blo od by Automated countOrdered By: Loi Wong on 04-16-2022 WBC (Bld) [#/Vol] 7.7 10*3/uL 4.5-11.0 [facility] Lymphocytes Auto (Bld) [#/Vo l]Ordered By: Loi Wong on 04-16-2022 Lymphocytes (Bld) [#/Vol] 2.3 10*3/uL 1.00-4.8 [facility] Lymphocytes/100 WBC Auto (Bl d)Ordered By: Loi Wong on 04-16-2022 Lymphocytes/100 WBC (Bld) 29.4 % . [facility] MCH Auto (RBC) [Entitic mass ]Ordered By: Loi Wong on 04-16-2022 MCH (RBC) [Entitic mass] 32.0 pg 27.5-35.2 [facility] MCHC Auto (RBC) [Mass/Vol]Or dered By: Loi Wong on 04-16-2022 MCHC (RBC) [Mass/Vol] 34.0 g/dL 32.5-35.6 [facility] MCV Auto (RBC) [Entitic vol] Ordered By: Loi Wong on 04-16-2022 MCV (RBC) [Entitic vol] 94.0 fL 83.5-101 [facility] Monocytes Auto (Bld) [#/Vol] Ordered By: Loi Wong on 04-16-2022 Monocytes (Bld) [#/Vol] 0.6 10*3/uL 0.0-0.8 [facility] Monocytes/100 WBC Auto (Bld) Ordered By: Loi Wong on 04-16-2022 Monocytes/100 WBC (Bld) 7.7 % . [facility] Neutrophils Auto (Bld) [#/Vo l]Ordered By: Loi Wong on 04-16-2022 Neutrophils (Bld) [#/Vol] 4.7 10*3/uL 1.8-7.7 [facility] Neutrophils/100 WBC Auto (Bl d)Ordered By: Loi Wong on 04-16-2022 Neutrophils/100 WBC (Bld) 60.5 % . [facility] No Panel InformationOrdered By: Loi Wong on 04-16-2022 D-Dimer Quantitative (PE/DVT) < 200 ng/mL 0-243 [facility] Comment on above: The reference range [...] conditions. Estimated GFR () > 60 mL/Min [facility] Comment on above: GFR estimated refere nce range: According to KDOQI guidelines, <60 ml/min/1.73m2 is sufficient to diagnose a patient with chronic kidney disease. Pharmacy Creatinine Clearance (Chem 79.33 [facility] Platelet mean volume Auto (B ld) [Entitic vol]Ordered By: Loi Wong on 04-16-2022 Platelet mean volume (Bld) [Entitic vol] 9.7 fL 6.6-10.1 [facility] Platelet poor plasma interna tional normalized ratio (INR) by coagulation assay (relatOrdered By: Loi Wong on 04-16-2022 INR Coag (PPP) [Relative time] 1.1 {INR} [facility] Comment on above: INR Therapeutic Rang [...] 04-16-2022 Platelets (Bld) [#/Vol] 238 10*3/uL 150-450 [facility] RBC Auto (Bld) [#/Vol]Ordere d By: Loi Wong on 04-16-2022 RBC (Bld) [#/Vol] 4.59 10*6/uL 3.90-5.60 [facility] Serum or plasma anion gap de terminationOrdered By: Loi Wong on 04-16-2022 Anion gap [Moles/Vol] 12.4 mmol/L 6.0-15.0 [facility] Serum or plasma calcium paramjit urement (mass/volume)Ordered By: Loi Wong on 04-16-2022 Calcium [Mass/Vol] 9.0 mg/dL 8.2-10.2 [facility] Serum or plasma chloride robby surement (moles/volume)Ordered By: Loi Wong on 04-16-2022 Chloride [Moles/Vol] 103 mmol/L 95-114 [facility] Serum or plasma creatine kin ase MB (CKMB)/total creatine kinase (CK) ratio by calculaOrdered By: Loi Wong on 04-16-2022 CK.MB Calc [Catalytic fraction] 2.0 % 0.00-2.50 [facility] Serum or plasma creatine kin ase MB measurement (mass/volume)Ordered By: Loi Wong on 04-16-2022 CK.MB [Mass/Vol] 1.4 ng/mL 0.6-6.3 [facility] Serum or plasma glucose paramjit urement (mass/volume)Ordered By: Loi Wong on 04-16-2022 Glucose [Mass/Vol] 88 mg/dL 70-100 [facility] Comment on above: ADA recommended refe rence rangeRandom Glucose Reference Range is dependent on time and content of last meal. Glucose of more than 200 mg/dL in a nonstressed, ambulatory subject supports the diagnosis of Diabetes Mellitus. Serum or plasma potassium me asurement (moles/volume)Ordered By: Loi Wong on 04-16-2022 Potassium [Moles/Vol] 4.3 mmol/L 3.5-5.1 [facility] Serum or plasma sodium measu rement (moles/volume)Ordered By: Loi Wong on 04-16-2022 Sodium [Moles/Vol] 135 mmol/L 136-146 [facility] Serum or plasma total carbon dioxide measurement (moles/volume)Ordered By: Loi Wong on 04-16-2022 CO2 [Moles/Vol] 23.9 mmol/L 22.0-30.0 [facility] Serum or plasma urea nitroge n measurement (mass/volume)Ordered By: Loi Wong on 04-16-2022 Urea nitrogen [Mass/Vol] 12 mg/dL 03-10 [facility] Troponin I.cardiac [Mass/vol ume] in Serum or Plasma by High sensitivity methodOrdered By: Loi Wong on 04-16-2022 Troponin I.cardiac High sensitivity method [Mass/Vol] 5 pg/mL 0- [facility] COVID Quick Testingon 2021 Result Negative [employer] Other Quick Fluon 03-16-2022 FLUAV Ab CF (S) [Titer] Negative [employer] Other FLUBV Ab CF (S) [Titer] Negative [employer] Other MRI Brain w/o + w/on 022 [...] by Jillian Morales on 01/18/2022 1413 Normal [facility] Cell Count + Differential, C SFon [...] CSF Clear CLEAR [facility] Work Phone: [phone] Cult, CSF, includes smearon 11-07-2021 Bacteria identified Cx Nom (CSF) [facility] Work Phone: [phone] Laboratoryon 11-07-2021 Albumin in CSF/Albumin in Serum or Plasma (S/P+CSF) [Relative ratio] 7.9 {ratio} 0.0-9.0 [facility] Work Phone: [phone] Albumin in CSF/Albumin in Serum or Plasma (S/P+CSF) [Relative ratio] Canceled [facility] Work Phone: [phone] Laboratory - Chemistry and C hemistry - challengeon 11-07-2021 Albumin (CSF) [Mass/Vol] 36 mg/dL above high threshold 0-35 [facility] Work Phone: [phone] Albumin [Mass/Vol] 4578 mg/dL [phone] [facility] Work Phone: [phone] IgG (CSF) [Mass/Vol] 2.2 mg/dL 0.0-6.0 [facility] Work Phone: [phone] IgG [Mass/Vol] 496 mg/dL below low threshold [phone] [facility] Work Phone: [phone] Comment on above: REFERENCE INTERVAL: Immunoglobulin GAccess complete set of age- and/or gender-specific reference intervals for this test in the [facility] Test Directory ([employer]). IgG clearance/Albumin clearance (S+CSF) [Ratio] 0.56 {ratio} 0.28-0.66 [facility] Work Phone: [phone] IgG synthesis rate Calc (S+CSF) [Mass/Time] 0.5 mg/d <=8.0 [facility] Work Phone: [phone] IgG/Albumin (CSF) [Mass ratio] 0.06 {ratio} [...] sclerosis will have a negative result.Performed By: [employer] [place] [address] [id number] Director: Paula Middleton MD Albumin (CSF) [Mass/Vol] Canceled [facility] Work Phone: [phone] Albumin [Mass/Vol] Canceled [facility]ge [employer] Work Phone: [phone] Glucose (CSF) [Mass/Vol] 56 mg/dL 40 - 70 [facility] Work Phone: [phone] IgG (CSF) [Mass/Vol] Canceled [facility] Work Phone: [phone] IgG [Mass/Vol] Canceled [facility] Work Phone: [phone] IgG clearance/Albumin clearance [...] above high threshold 15 - 45 [facility] Work Phone: No Panel Informationon 11-07 0 {Bands} 0-1 [facility] Work Phone: [facility] Work Phone: Canceled [facility] Work Phone: Path Review, CSFon 2 Path Review, CSF R.REHANA [facility] Work Phone: Comment on above: By her/his signature above, the Pathologist listed as making the final interpretation certifies that she/he has personally reviewed this case. HEMORRHAGIC SPECIMEN, NO MALIGNANT CELLS IDENTIFIED. 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 In [...] He saw Dr. Ba a neurologist in [facility]. He describes his vision as seeing 1-1/2 [...] MG Oral Tablet Vitals Vital Signs Recorded: [id number] 09:38AM Xiievghrdzv58.2 F Heart Rate63 Nmuxcpkuyyz83 Rjqcxcrk235 Sbjytbcei15 Blood Pressure Cuff SizeAdult Height5 ft 7.13 in Xummae466 lb 6 oz BMI Ebnrnqlivt36.05 kg/m2 BSA Calculated1.91 Tobacco Usea) Yes Fall Screeninga) No falls within the last year O2 Ykneavulmd37 Pain Scale7 Physical Exam Constitutional - General appearance: No acute distress, well de (more content not included)... 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 In [...] He saw Dr. Ba a neurologist in [facility]. He describes his vision as seeing 1-1/2 [...] Tablet Vitals Vital Signs Recorded: 03Nov2021 09:38AM Dqrulsghjrp65.2 F Heart Rate63 Hyqiqggnqcc18 Yfzeboyw681 Dnxogeuek40 Blood Pressure Cuff SizeAdult Height5 ft 7.13 in Qapaqh700 lb 6 oz BMI Fercaawwrk92.05 kg/m2 BSA Calculated1.91 Tobacco Usea) Yes Fall Screeninga) No falls within the last year O2 Uzigmhryqu13 Pain Scale7 Ph (more content not included)... Normal [employer] CBC W Auto Differential pane l (Bld)on 10-06-2021 Basophils (Bld) [#/Vol] 0.06 10*3/uL [facility] Basophils/100 WBC (Bld) 0.8 % [facility] Differential cell count method Nom (Bld) Auto [facility] Eosinophils (Bld) [#/Vol] 0.11 10*3/uL [facility] Eosinophils/100 WBC (Bld) 1.5 % [facility] Erythrocyte distribution width (RBC) [Ratio] 12.8 % 11.5 - 15.0 % [facility] Hematocrit (Bld) [Volume fraction] 43.7 % 39.0 - 51.0 % [facility] Hemoglobin (Bld) [Mass/Vol] 14.6 g/dL 13.0 - 17.0 g/dL [facility] Immature granul[facility] (Bld) [#/Vol] [facility] Immature granulocytes/100 WBC (Bld) 0.3 % [facility] Lymphocytes (Bld) [#/Vol] 1.75 10*3/uL [facility] Lymphocytes/100 WBC (Bld) 23.7 % [facility] MCH (RBC) [Entitic mass] 32.7 pg 26.0 - 34.0 pg [facility] MCHC (RBC) [Mass/Vol] 33.4 g/dL 30.5 - 36.0 g/dL [facility] MCV (RBC) [Entitic vol] 98.0 fL 80.0 - 100.0 fL [facility] Monocytes (Bld) [#/Vol] 0.52 10*3/uL [facility] Monocytes/100 WBC (Bld) 7.0 % [facility] Neutrophils (Bld) [#/Vol] 4.92 10*3/uL [facility] Neutrophils/100 WBC (Bld) 66.7 % [facility] Nucleated RBC (Bld) [#/Vol] NINF [facility] Nucleated RBC/100 WBC (Bld) [Ratio] 0.0 % /100 WBC [facility] Platelet mean volume (Bld) [Entitic vol] 10.8 fL 9.0 - 12.7 fL [facility] Platelets (Bld) [#/Vol] 246 10*3/uL [facility] RBC (Bld) [#/Vol] 4.46 10*6/uL 4.20 - 6.00 m/uL [facility] WBC (Bld) [#/Vol] 7.38 10*3/uL [facility] This is an appended report. These results have been appended to a previously verified report. [facility] CT Chest W contrast Tristin IMPRESSION: 1. [...] any questions regarding this interpretation, please call [phone]. If you are unable to reach us at the number above, please feel free to contact [facility] eRadiology at [phone]. MATHEW_DO_NOT_US E_DIVISION OF RADIOLOGY * * *Final [...] images through the upper abdomen appear stable. Brim Rounder (topogram) images: No additional findings. ZZZ_DO_NOT_US E_DIVISION OF RADIOLOGY Provider, [facility] - 10/06/2021 * * *Final Report* * [...] images through the upper abdomen appear stable. Brim Rounder (topogram) images: No additional findings. IMPRESSION IMPRESSION: [...] any questions regarding this interpretation, please call [phone]. If you are unable to reach us at the number above, please feel free to contact [facility] eRadiology at [phone]. [facility] CT Neck W contrast Tristin 04-2 IMPRESSION: [...] any questions regarding this interpretation, please call [phone]. If you are unable to reach us at the number above, please feel free to contact [facility] eRadiology at [phone]. ZZZ_DO_NOT_US E_DIVISION OF RADIOLOGY * * *Final [...] carotid siphons. ZZZ_DO_NOT_US E_DIVISION OF RADIOLOGY Provider, [facility] - 10/06/2021 * * *Final Report* * * DATE OF EXAM: Oct 06 2021 8:22AM [facility] 0013 - CT NECK SOFT TISSUE W [...] any questions regarding this interpretation, please call [phone]. If you are unable to reach us at the number above, please feel free to contact [facility] eRadiology at [phone]. [facility] CT Neck W contrast IVOrdered By: Ccf Provider on 10-06-2021 [facility] Comprehensive metabolic 2000 panelOrdered By: Micheal Vizcaino on 10-06-2021 Albumin [Mass/Vol] 4.5 g/dL 3.9 - 4.9 g/dL [facility] ALP [Catalytic activity/Vol] 82 U/L 38 - 113 U/L [facility] ALT [Catalytic activity/Vol] 25 U/L 10 - 54 U/L [facility] Anion gap [Moles/Vol] 10 mmol/L 9 - 18 mmol/L [facility] AST [Catalytic activity/Vol] 21 U/L 14 - 40 U/L [facility] Bilirubin [Mass/Vol] 0.6 mg/dL 0.2 - 1 .3 mg/dL [facility] Calcium [Mass/Vol] 9.5 mg/dL 8.5 - 10. 2 mg/dL [facility] Chloride [Moles/Vol] 106 mmol/L High 97 - 10 5 mmol/L [facility] CO2 [Moles/Vol] 29 mmol/L 22 - 30 mmol/L [facility] Creatinine [Mass/Vol] 1.01 mg/dL 0.73 - 1.22 mg/dL [facility] GFR/1.73 sq M.predicted among non-blacks MDRD (S/P/Bld) [Vol rate/Area] 86 mL/min/{1.73_m2} - PINF [facility] Comment on above: Estimated Glomerular Filtration [...] 107 mg/dL High 74 - 99 mg/dL [facility] Comment on above: The [place] Diabete s Association (ADA) provides guidance for [...] Standards of Medical Care in Diabetes 2016, [place] Diabetes Association. Diabetes Care. 2016.39(Suppl 1). Interpretation and review of laboratory results Abnormal [facility] Potassium [Moles/Vol] 4.2 mmol/L 3.7 - 5.1 mmol/L [facility] Protein [Mass/Vol] 6.5 g/dL 6.3 - 8.0 g/dL [facility] Sodium [Moles/Vol] 145 mmol/L High 136 - 144 mmol/L [facility] Urea nitrogen [Mass/Vol] 10 mg/dL 9 - 24 mg/dL [facility] No Panel Informationon 10-06 Radiology Study observation (narrative) [facility] COVID + FLU Quick Testingon 06-30-2021 SARS-CoV-2 (COVID-19) RNA JER+probe Ql (Unsp spec) Negative [employer] Other COVID + FLU Quick Testing Negative [employer] Other COVID Quick Testingon 2020 Result Negative [employer] Other Basophils Auto (Bld) [#/Vol] on 09-20-2020 Basophils (Bld) [#/Vol] 0.0 10*3/uL 0.0-0.2 [facility] Basophils/100 WBC Auto (Bld) on 09-20-2020 Basophils/100 WBC (Bld) 0.6 % [facility] Blood hemoglobin measurement (mass/volume)on 09-20-2020 Hemoglobin (Bld) [Mass/Vol] 14.4 g/dL 13.0-17.0 [facility] Blood leukocytes automated c ount (number/volume)on 09-20-2020 WBC (Bld) [#/Vol] 7.4 10*3/uL 4.5-11.0 [facility] Eosinophils Auto (Bld) [#/Vo l]on 09-20-2020 Eosinophils (Bld) [#/Vol] 0.1 10*3/uL 0.0-0.45 [facility] Eosinophils/100 WBC Auto (Bl d)on 09-20-2020 Eosinophils/100 WBC (Bld) 0.9 % [facility] Erythrocyte distribution wid th Auto (RBC) [Ratio]on 09-20-2020 Erythrocyte distribution width (RBC) [Ratio] 14.6 % 12.0-14.8 [facility] Hematocrit Auto (Bld) [Volum e fraction]on 09-20-2020 Hematocrit (Bld) [Volume fraction] 41.7 % 38.8-50.0 [facility] Lymphocytes Auto (Bld) [#/Vo l]on 09-20-2020 Lymphocytes (Bld) [#/Vol] 1.6 10*3/uL 1.00-4.8 [facility] Lymphocytes/100 WBC Auto (Bl d)on 09-20-2020 Lymphocytes/100 WBC (Bld) 21.3 % [facility] MCH Auto (RBC) [Entitic mass ]on 09-20-2020 MCH (RBC) [Entitic mass] 32.4 pg 27.5-35.2 [facility] MCHC Auto (RBC) [Mass/Vol]on 09-20-2020 MCHC (RBC) [Mass/Vol] 34.5 g/dL 32.5-35.6 [facility] MCV Auto (RBC) [Entitic vol] on 09-20-2020 MCV (RBC) [Entitic vol] 93.9 fL 83.5-101 [facility] Monocytes Auto (Bld) [#/Vol] on 09-20-2020 Monocytes (Bld) [#/Vol] 0.6 10*3/uL 0.0-0.8 [facility] Monocytes/100 WBC Auto (Bld) on 09-20-2020 Monocytes/100 WBC (Bld) 8.6 % [facility] Neutrophils Auto (Bld) [#/Vo l]on 09-20-2020 Neutrophils (Bld) [#/Vol] 5.1 10*3/uL 1.8-7.7 [facility] Neutrophils/100 WBC Auto (Bl d)on 09-20-2020 Neutrophils/100 WBC (Bld) 68.6 % [facility] Otheron 09-20-2020 Nucleated RBC/100 WBC (Bld) [Ratio] 0.0 % 0-0.5 [facility] Platelet mean volume Auto (B ld) [Entitic vol]on 09-20-2020 Platelet mean volume (Bld) [Entitic vol] 9.3 fL 6.6-10.1 [facility] Platelets Auto (Bld) [#/Vol] on 09-20-2020 Platelets (Bld) [#/Vol] 182 10*3/uL 150-450 [facility] RBC Auto (Bld) [#/Vol]on RBC (Bld) [#/Vol] 4.44 10*6/uL 3.90-5.60 [facility] Body fluid albumin measureme nt (mass/volume)on 09-13-2020 Albumin (Body fld) [Mass/Vol] 4.3 g/dL 3.2-5.5 [facility] Cholesterol [Mass/volume] in Serum or Plasmaon 09-13-2020 Cholesterol [Mass/Vol] 219 mg/dL 140-200 [facility] Comment on above: Chol less than 200 m g/dl low riskChol 201-239 mg/dl borderline riskChol 240 mg/dl and greater high risk Cholesterol in LDL Calc [Mas s/Vol]on 09-13-2020 Cholesterol in LDL [Mass/Vol] 149 mg/dL 0-100 [facility] Comment on above: LDL ATP III CLASSIFI CATIONLDL less than 100 mg/dL OptimalLDL 100-129 mg/dL Near or above optimalLDL 130-159 mg/dL Borderline highLDL 160-189 mg/dL HighLDL greater than 189 mg/dL Very high Cholesterol in VLDL Calc [Ma ss/Vol]on 09-13-2020 Cholesterol in VLDL [Mass/Vol] 28 mg/dL [facility] Creatinine and Glomerular fi ltration rate.predicted panel (S/P/Bld)on 09-13-2020 Creatinine [Mass/Vol] 0.89 mg/dL 0.64-1.27 [facility] GFR/1.73 sq M.predicted roverto g non-blacks MDRD (S/P/Bld) [Vol rate/Area]on 09-13-2020 GFR/1.73 sq M predicted among non-blacks MDRD (S/P/Bld) [Vol rate/Area] > 60 mL/Min [facility] Globulin Calc (S) [Mass/Vol] on 09-13-2020 Globulin (S) [Mass/Vol] 2.0 g/dL [facility] No Panel Informationon 09-13 Estimated GFR () > 60 mL/Min [facility] Comment on above: GFR estimated refere nce range: According to KDOQI guidelines, <60 ml/min/1.73m2 is sufficient to diagnose a patient with chronic kidney disease. Otheron 09-13-2020 GFR/1.73 sq M.predicted MDRD (S/P/Bld) [Vol rate/Area] > 60 mL/Min [facility] Comment on above: GFR estimated refere nce range: According to KDOQI guidelines, <60 ml/min/1.73m2 is sufficient to diagnose a patient with chronic kidney disease. Pharmacy Creatinine Clearance (Chem N/A [facility] Prostate Specific Antigen Screen 0.480 ng/mL 0.000-4.00 0 [facility] Protein [Mass/volume] in Ser um or Plasmaon 09-13-2020 Protein [Mass/Vol] 6.3 g/dL 6.1-7.9 [facility] SARS-CoV-2 (COVID-19) IgG Ab [Presence] in Serum or Plasma by Immunoassayon 09-13-2020 SARS-CoV-2 (COVID-19) IgG Ab [Presence] in Serum or Plasma by Immunoassay Positive Negative [facility] Comment on above: Results suggest [...] including the receptor binding domain (RBD).Performed at: [address] [id number] Director: Florencio Wu PhD, Phone: [phone] SARS-CoV-2 (COVID-19) IgG IA Ql Positive Negative [facility] Comment on above: Results suggest [...] including the receptor binding domain (RBD).Performed at: [address] [id number] Director: Florencio Wu PhD, Phone: [phone] Serum or plasma alanine mclaughlin otransferase measurement without P-5'-P (enzymatic activion 09-13-2020 ALT No additional P-5'-P [Catalytic activity/Vol] 19 U/L 1060 [facility] Serum or plasma albumin/glob ulin mass ratioon 09-13-2020 Albumin/Globulin [Mass ratio] 2.2 {ratio} [facility] Serum or plasma alkaline fuentes sphatase measurement (enzymatic activity/volume)on 09-13-2020 ALP [Catalytic activity/Vol] 53 U/L 32-92 [facility] Serum or plasma aspartate am inotransferase measurement (enzymatic activity/volume)on 09-13-2020 AST [Catalytic activity/Vol] 22 U/L 1042 [facility] Serum or plasma calcium paramjit urement (mass/volume)on 09-13-2020 Calcium [Mass/Vol] 9.1 mg/dL 8.2-10.2 [facility] Serum or plasma chloride robby surement (moles/volume)on 09-13-2020 Chloride [Moles/Vol] 105 mmol/L 95-114 [facility] Serum or plasma glucose paramjit urement (mass/volume)on 09-13-2020 Glucose [Mass/Vol] 97 mg/dL 70-100 [facility] Comment on above: ADA recommended refe rence rangeRandom Glucose Reference Range is dependent on time and content of last meal. Glucose of more than 200 mg/dL in a nonstressed, ambulatory subject supports the diagnosis of Diabetes Mellitus. Serum or plasma high density lipoprotein (HDL) cholesterol measurementon 09-13-2020 Cholesterol in HDL [Mass/Vol] 41 mg/dL [facility] Comment on above: HDL CHOL ATP-III CLA SSIFICATION Cardiovascular RiskHDL > or equal to 60 mg/dL LOWHDL < 40 mg/dL HIGH Serum or plasma potassium me asurement (moles/volume)on 09-13-2020 Potassium [Moles/Vol] 4.2 mmol/L 3.5-5.1 [facility] Serum or plasma sodium measu rement (moles/volume)on 09-13-2020 Sodium [Moles/Vol] 135 mmol/L 136-146 [facility] Serum or plasma thyroid stim ulating hormone (TSH) measurement by high sensitivity meton 09-13-2020 TSH Qn 1.66 u[iU]/mL 0.45-5.33 [facility] Serum or plasma total biliru bin measurement (mass/volume)on 09-13-2020 Bilirubin [Mass/Vol] 0.9 mg/dL 0.3-1.2 [facility] Serum or plasma total carbon dioxide measurement (moles/volume)on 09-13-2020 CO2 [Moles/Vol] 22.5 mmol/L 22.0-30.0 [facility] Serum or plasma total choles terol/high density lipoprotein (HDL) cholesterol mass gia 09-13-2020 Cholesterol.total/Chol esterol in HDL [Mass ratio] 5.3 {ratio} [facility] Serum or plasma urea nitroge n measurement (mass/volume)on 09-13-2020 Urea nitrogen [Mass/Vol] 12 mg/dL 9-23 [facility] TSH DL <= 0.005 mIU/L Qnon 0 09-13-2020 TSH Qn 1.66 m[IU]/L 0.45-5.33 [facility] Triglyceride [Mass/volume] i n Serum or Plasmaon 09-13-2020 Triglyceride [Mass/Vol] 144 mg/dL 35-149 [facility] Comment on above: TRIG ATP [...] eye. Coleen Grajeda M.D. aek Dictated: 04/14/2019 #[id number] Typed 04/14/2019 #[id number] cc: Coleen Grajeda M.D. [facility] Comment on above: Result Comment: Elec tronically [...] and inferior fornices of the eye. A Rentlordan manometer was set on the eye at [...] condition. Coleen Grajeda M.D. gls Dictated: 04/14/2019 #[id number] Typed: 04/15/2019 #[id number] cc: Coleen Grajeda M.D. [facility] Comment on above: Result Comment: Elec tronically Signed By: Coleen Grajeda MD\.br\Date and Time Signed: 04/18/19 09:54 EDT Coding Summary.on 04-15-2019 Coding Summary. 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 Name: SHANTEL MELENDEZ/Sex: 1960 Male Med Rec #: [id number] Physician: Taras NORRIS, Coleen Mullins Financial #: [id number] Pt. Type: A Room/Bed: Admit/Disch: 04/14/19 12:59:00 - 04/14/19 16:00:00 Institution: Case Times FT Entry 1 Patient Times In Room 04/14/19 14:55:00 Out Room 04/14/19 15:17:00 Procedure Times Start 04/14/19 15:03:00 Stop 04/14/19 15:14:00 Anesthesia Times Last Modified By: Asya Alves CST 04/14/19 15:16:26 General Comments: 04/15/19 Chart opened to review and send charges Avinash Alves [employer] Case Attendance FT Entry 1 Entry 2 Entry 3 Case Attendee Taras NORRIS, Coleen Alves CST, Asya Karimi RN, Johnathon Mullins Role Performed Surgeon - Primary Scrub - Primary Decorating And Assembly Supervisor - Primary Time In 04/14/19 14:55:00 04/14/19 [...] VERNON, Pauly GOODEN, RN, Tierra Role Performed Decorating And Assembly Supervisor - Primary Decorating And Assembly Supervisor - Relief Time In 04/14/19 14:55:00 04/14/19 [...] Unable to Visualize, Outcomes Met? Yes Warm, [place], Dry Last Modified By: Johnathon Karimi RN 04/14/19 15:02:52 Post-Care Text: The patient is free from signs and symptoms of injury caused by extraneous objects General Comments: pt partially clothed, unable to assess all of skin/ shantaler rn Patient Positioning FT Pre-Care Text: Identifies [...] RN Patient Status Stable Skin. 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-[employer] Catalog ?# [id number] 21.0[F] Expiration Date 10/16/23 Unique Device [id number] Identifier (BERNARD) Usage Data FT Implant Site [...] 15:16 Asya Alves CST 04/15/19 14:44 Normal [facility] Inpatient Patient Summaryon 04-14-2019 Inpatient Patient Summary [facility] Clinical Discharge Instructions PERSON INFORMATION Name: SHANTEL MELENDEZ PH[facility]ICIANS Admitting Physician: Coleen Grajeda MD Attending Physician: Coleen Grajeda MD PCP: JILLIAN BARONE DO Discharge Diagnosis: Cataract Comment: PATIENT EDUCATION INFORMATION Instructions: Medication Leaflets: Follow up: With: Address: When: Coleen Grajeda [address] [facility] [address], [place] [id number] [facility] (1) Comments: Call physician if symptoms worsen Keep scheduled appointment MEDICATION LIST Comment: Normal [facility] Main OR PACU II Recordon Main OR PACU II Record PACU Phase II Doc ument Type FT Summary Primary Physician: Coleen Grajeda MD Finalized Date/Time: 04/14/19 17:54:42 Pt. Name: SHANTEL MELENDEZ Fatimah Roland/Sex: 1960 Male Med Rec #: [id number] Physician: Coleen Grajeda MD Financial #: [id number] Pt. Type: A Room/Bed: [facility]07/19 Admit/Disch: 04/14/19 12:59:23 - Institution: Case [...] administered during the perioperative period Finalized By: Oney RN, Lizeth R Document Signatures Signed By: Lizeth Rush RN 04/14/19 17:54 Normal [facility] Main OR Preoperative Recordo n 04-14-2019 Main OR Preoperative Record PreOp Document Type FT Summary Primary Physician: Coleen Grajeda MD Finalized Date/Time: 04/14/19 15:14:03 Pt. Name: SHANTEL MELENDEZ /Sex: 1960 Male Med Rec #: [id number] Physician: Coleen Grajeda MD Financial #: [id number] Pt. Type: A Room/Bed: [facility]07/19 Admit/Disch: 04/14/19 12:59:23 - Institution: Case [...] By: Johnathon Karimi RN 04/14/19 15:14 Normal [facility] Patient Education - Texton 1 Patient Education - Text Normal [facility] Vital Signs Date Time Vital Sign Value Performing Clinician Facility 02-19-2025 11:25-0400 Body height 172.72 cm [employer] DO Work Phone: [facility] 02-19-2025 11:25-0400 Body mass index (BMI) [Ratio] 24.1 kg/m2 Griselda Helprs DO Work Phone: [facility] 02-19-2025 11:25-040 Body weight 72.12 kg WEEZEVENTs DO Work Phone: [facility] 02-19-2025 11:25-0400 Diastolic blood pressure 68 mm[Hg] Griselda Helprs DO Work Phone: [facility] 02-19-2025 11:25-0400 Heart rate 107 /min Griselda Kuns DO Work Phone: [facility] 02-19-2025 11:25-0400 Respiratory rate 16 /min Griselda Kuns DO Work Phone: [facility] 02-19-2025 11:25-0400 SaO2% (BldA) [Mass fraction] 98 % Griselda Kuns DO Work Phone: [facility] 02-19-2025 11:25-0400 Systolic blood pressure 102 mm[Hg] Griselda Kuns DO Work Phone: [facility] 02-04-2025 14:41-0400 Body mass index (BMI) [Ratio] 24.18 kg/m2 Oziel Cadena MD Work Phone: [facility] 02-04-2025 14:41-0400 Body weight 72.12 kg Oziel Cadena MD Work Phone: [facility] 02-04-2025 14:41-0400 Diastolic blood pressure 93 mm[Hg] Oziel Cadena MD Work Phone: [facility] 02-04-2025 14:41-0400 Heart rate 113 /min Oziel Cadena MD Work Phone: [facility] 02-04-2025 14:41-0400 Systolic blood pressure 133 mm[Hg] Oziel Cadena MD Work Phone: [facility] 01-12-2025 15:20-0400 Body height 172.72 cm Griselda Kuns DO Work Phone: [facility] 01-12-2025 15:20-0400 Body mass index (BMI) [Ratio] 27 kg/m2 Griselda Kuns DO Work Phone: [facility] 01-12-2025 15:20-0400 Body weight 80.73 kg Griselda Kuns DO Work Phone: [facility] 01-12-2025 15:20-0400 Diastolic blood pressure 74 mm[Hg] Griselda Kuns DO Work Phone: [facility] 01-12-2025 15:20-0400 Heart rate 76 /min Griselda Kuns DO Work Phone: [facility] 01-12-2025 15:20-0400 Systolic blood pressure 120 mm[Hg] Griselda Kuns DO Work Phone: [facility] 12-24-2024 14:12-0400 Body mass index (BMI) [Ratio] 25.09 kg/m2 Oziel Cadena MD Work Phone: [facility] 12-24-2024 14:12-0400 Body weight 74.84 kg Oziel Cadena MD Work Phone: [facility] 12-24-2024 14:12-0400 Diastolic blood pressure 87 mm[Hg] Oziel Cadena MD Work Phone: [facility] 12-24-2024 14:12-0400 Heart rate 85 /min Oziel Cadena MD Work Phone: [facility] 12-24-2024 14:12-0400 Systolic blood pressure 125 mm[Hg] Oziel Cadena MD Work Phone: [facility] 11-19-2024 14:04-0400 Body height 172.72 cm Griselda Kuns DO Work Phone: [facility] 11-19-2024 14:04-0400 Body temperature 100.7 [degF] Griselda Kuns DO Work Phone: [facility] 11-19-2024 14:04-0400 Heart rate 96 /min Griselda Kuns DO Work Phone: [facility] 11-19-2024 14:04-0400 Respiratory rate 18 /min Griselda Kuns DO Work Phone: [facility] 11-19-2024 14:04-0400 SaO2% (BldA) [Mass fraction] 99 % Griselda Kuns DO Work Phone: [facility] 11-17-2024 14:03-0400 Body height 172.72 cm Griselda Kuns DO Work Phone: [facility] 11-17-2024 14:03-0400 Body mass index (BMI) [Ratio] 26.3 kg/m2 Griselda Kuns DO Work Phone: [facility] 11-17-2024 14:03-0400 Body weight 78.47 kg Griselda Kuns DO Work Phone: [facility] 11-17-2024 14:03-0400 Diastolic blood pressure 80 mm[Hg] Griselda Kuns DO Work Phone: [facility] 11-17-2024 14:03-0400 Heart rate 109 /min Griselda Kuns DO Work Phone: [facility] 11-17-2024 14:03-0400 Systolic blood pressure 120 mm[Hg] Griselda Kuns DO Work Phone: [facility] 11-05-2024 10:30-0400 Diastolic blood pressure 76 mm[Hg] Griselda Kuns DO Work Phone: [facility] 11-05-2024 10:30-0400 Heart rate 71 /min Griselda Kuns DO Work Phone: [facility] 11-05-2024 10:30-0400 Respiratory rate 20 /min Griselda Kuns DO Work Phone: [facility] 11-05-2024 10:30-0400 SaO2% (BldA) [Mass fraction] 98 % Griselda Kuns DO Work Phone: [facility] 11-05-2024 10:30-0400 Systolic blood pressure 110 mm[Hg] Griselda Kuns DO Work Phone: [facility] 11-05-2024 07:12-0400 Body height 172.72 cm Griselda Kuns DO Work Phone: [facility] 11-05-2024 07:12-0400 Body weight 77.11 kg Griselda Kuns DO Work Phone: [facility] 10-27-2024 09:57-0400 Body height 172.72 cm Griselda Kuns DO Work Phone: [facility] 10-27-2024 09:57-0400 Body mass index (BMI) [Ratio] 26.4 kg/m2 Griselda Kuns DO Work Phone: [facility] 10-27-2024 09:57-0400 Body weight 78.92 kg Griselda Kuns DO Work Phone: [facility] 10-27-2024 09:57-0400 Diastolic blood pressure 64 mm[Hg] Griselda Kuns DO Work Phone: [facility] 10-27-2024 09:57-0400 Heart rate 64 /min Griselda Kuns DO Work Phone: [facility] 10-27-2024 09:57-0400 Respiratory rate 18 /min Griselda Kuns DO Work Phone: [facility] 10-27-2024 09:57-0400 SaO2% (BldA) [Mass fraction] 98 % Griselda Kuns DO Work Phone: [facility] 10-27-2024 09:57-0400 Systolic blood pressure 110 mm[Hg] Griselda Kuns DO Work Phone: [facility] 10-13-2024 09:06-0400 Body height 172.7 cm Doretha Harris MD Work Phone: [facility] 10-13-2024 09:06-0400 Body mass index (BMI) [Ratio] 25.54 kg/m2 Doretha Harris MD Work Phone: [facility] 10-13-2024 09:06-0400 Body weight 76.2 kg Doretha Harris MD Work Phone: [facility] 10-13-2024 09:06-0400 Diastolic blood pressure 60 mm[Hg] Doretha Harris MD Work Phone: [facility] 10-13-2024 09:06-0400 Heart rate 75 /min Doretha Harris MD Work Phone: [facility] 10-13-2024 09:06-0400 Systolic blood pressure 100 mm[Hg] Doretha Harris MD Work Phone: [facility] 10-10-2024 13:05-0400 Body height 172.72 cm Griselda Kuns DO Work Phone: [facility] 10-10-2024 13:05-0400 Body mass index (BMI) [Ratio] 25.4 kg/m2 Griselda Kuns DO Work Phone: [facility] 10-10-2024 13:05-0400 Body weight 75.74 kg Griselda Kuns DO Work Phone: [facility] 10-10-2024 13:05-0400 Diastolic blood pressure 58 mm[Hg] Griselda Kuns DO Work Phone: [facility] 10-10-2024 13:05-0400 Heart rate 76 /min Griselda Kuns DO Work Phone: [facility] 10-10-2024 13:05-0400 Systolic blood pressure 94 mm[Hg] Griselda Kuns DO Work Phone: [facility] 10-06-2024 18:42-0400 Diastolic blood pressure 80 mm[Hg] Griselda Kuns DO Work Phone: [facility] 10-06-2024 18:42-0400 Heart rate 80 /min Griselda Kuns DO Work Phone: [facility] 10-06-2024 18:42-0400 Respiratory rate 16 /min Griselda Kuns DO Work Phone: [facility] 10-06-2024 18:42-0400 SaO2% (BldA) [Mass fraction] 98 % Griselda Kuns DO Work Phone: [facility] 10-06-2024 18:42-0400 Systolic blood pressure 142 mm[Hg] Griselda Kuns DO Work Phone: [facility] 10-06-2024 14:04-0400 Body height 172.72 cm Griselda Kuns DO Work Phone: [facility] 10-06-2024 14:04-0400 Body temperature 98.2 [degF] Griselda Kuns DO Work Phone: [facility] 10-06-2024 14:04-0400 Body weight 77.9 kg Griselda Kuns DO Work Phone: [facility] 09-20-2024 14:00-0400 Heart rate 88 /min Griselda Kuns DO Work Phone: [facility] 09-20-2024 14:00-0400 Respiratory rate 20 /min Griselda Kuns DO Work Phone: [facility] 09-20-2024 14:00-0400 SaO2% (BldA) [Mass fraction] 93 % Griselda Kuns DO Work Phone: [facility] 09-20-2024 13:48-0400 Body temperature 99.4 [degF] Griselda Kuns DO Work Phone: [facility] 09-20-2024 13:48-0400 Diastolic blood pressure 59 mm[Hg] Griselda Kuns DO Work Phone: [facility] 09-20-2024 13:48-0400 Systolic blood pressure 103 mm[Hg] Griselda Kuns DO Work Phone: [facility] 09-20-2024 10:55-0400 Body height 172.72 cm Griselda Kuns DO Work Phone: [facility] 09-20-2024 10:55-0400 Body weight 77.9 kg Griselda Kuns DO Work Phone: [facility] 09-11-2024 10:46-0400 Body mass index (BMI) [Ratio] 27.06 kg/m2 Oziel Cadena MD Work Phone: [facility] 09-11-2024 10:46-0400 Body weight 80.74 kg Oziel Cadena MD Work Phone: [facility] 09-11-2024 10:46-0400 Diastolic blood pressure 68 mm[Hg] Oziel Cadena MD Work Phone: [facility] 09-11-2024 10:46-0400 Heart rate 61 /min Oziel Cadena MD Work Phone: [facility] 09-11-2024 10:46-0400 Systolic blood pressure 135 mm[Hg] Oziel Cadena MD Work Phone: [facility] 09-11-2024 09:22-0400 Body height 172.72 cm Griselda Kuns DO Work Phone: [facility] 09-11-2024 09:22-0400 Body mass index (BMI) [Ratio] 28.1 kg/m2 Griselda Kuns DO Work Phone: [facility] 09-11-2024 09:22-0400 Body temperature 96.6 [degF] Griselda Kuns DO Work Phone: [facility] 09-11-2024 09:22-0400 Body weight 84 kg Griselda Kuns DO Work Phone: [facility] 09-11-2024 09:22-0400 Diastolic blood pressure 86 mm[Hg] Griselda Kuns DO Work Phone: [facility] 09-11-2024 09:22-0400 Heart rate 78 /min Griselda Kuns DO Work Phone: [facility] 09-11-2024 09:22-0400 Respiratory rate 16 /min Griselda Kuns DO Work Phone: [facility] 09-11-2024 09:22-0400 SaO2% (BldA) [Mass fraction] 98 % Griselda Kuns DO Work Phone: [facility] 09-11-2024 09:22-0400 Systolic blood pressure 122 mm[Hg] Griselda Kuns DO Work Phone: [facility] 07-31-2024 13:26-0500 Body mass index (BMI) [Ratio] 27.37 kg/m2 Oziel Cadena MD Work Phone: [facility] 07-31-2024 13:26-0500 Body weight 81.65 kg Oziel Cadena MD Work Phone: [facility] 07-31-2024 13:26-0500 Diastolic blood pressure 89 mm[Hg] Oziel Cadena MD Work Phone: [facility] 07-31-2024 13:26-0500 Heart rate 81 /min Oziel Cadena MD Work Phone: [facility] 07-31-2024 13:26-0500 Systolic blood pressure 131 mm[Hg] Oziel Cadena MD Work Phone: [facility] 07-03-2024 09:54-0500 Body height 172.72 cm Griselda Kuns DO Work Phone: [facility] 07-03-2024 09:54-0500 Body mass index (BMI) [Ratio] 28.4 kg/m2 Griselda Kuns DO Work Phone: [facility] 07-03-2024 09:54-0500 Body weight 84.82 kg Griselda Kuns DO Work Phone: [facility] 07-03-2024 09:54-0500 Diastolic blood pressure 70 mm[Hg] Griselda Kuns DO Work Phone: [facility] 07-03-2024 09:54-0500 Heart rate 81 /min Griselda Kuns DO Work Phone: [facility] 07-03-2024 09:54-0500 Respiratory rate 18 /min Griselda Kuns DO Work Phone: [facility] 07-03-2024 09:54-0500 SaO2% (BldA) [Mass fraction] 98 % Griselda Kuns DO Work Phone: [facility] 07-03-2024 09:54-0500 Systolic blood pressure 120 mm[Hg] Griselda Kuns DO Work Phone: [facility] 07-02-2024 14:18-0500 Body mass index (BMI) [Ratio] 28.28 kg/m2 Oziel Cadena MD Work Phone: [facility] 07-02-2024 14:18-0500 Body weight 84.37 kg Oziel Cadena MD Work Phone: [facility] 07-02-2024 14:18-0500 Diastolic blood pressure 77 mm[Hg] Oziel Cadena MD Work Phone: [facility] 07-02-2024 14:18-0500 Heart rate 86 /min Oziel Cadena MD Work Phone: [facility] 07-02-2024 14:18-0500 Systolic blood pressure 143 mm[Hg] Oziel Cadena MD Work Phone: [facility] 06-30-2024 08:56-0500 Body height 172.7 cm Doretha Harris MD Work Phone: [facility] 06-30-2024 08:56-0500 Body mass index (BMI) [Ratio] 27.37 kg/m2 Doretha Harris MD Work Phone: [facility] 06-30-2024 08:56-0500 Body weight 81.65 kg Doretha Harris MD Work Phone: [facility] 06-30-2024 08:56-0500 Diastolic blood pressure 70 mm[Hg] Doretha Harris MD Work Phone: [facility] 06-30-2024 08:56-0500 Heart rate 75 /min Doretha Harris MD Work Phone: [facility] 06-30-2024 08:56-0500 Systolic blood pressure 124 mm[Hg] Doretha Harris MD Work Phone: [facility] 05-21-2024 14:04-0500 Body height 172.7 cm Oziel Cadena MD Work Phone: [facility] 05-21-2024 14:04-0500 Body mass index (BMI) [Ratio] 26.46 kg/m2 Oziel Cadena MD Work Phone: [facility] 05-21-2024 14:04-0500 Body weight 78.93 kg Oziel Cadena MD Work Phone: [facility] 05-21-2024 14:04-0500 Diastolic blood pressure 82 mm[Hg] Oziel Cadena MD Work Phone: [facility] 05-21-2024 14:04-0500 Systolic blood pressure 120 mm[Hg] Oziel Cadena MD Work Phone: [facility] 04-28-2024 09:48-0500 Body height 172.72 cm [facility] 04-28-2024 09:48-0500 Body mass index (BMI) [Ratio] 27 kg/m2 [facility] 04-28-2024 09:48-0500 Body weight 80.73 kg [facility] 04-28-2024 09:48-0500 Diastolic blood pressure 76 mm[Hg] [facility] 04-28-2024 09:48-0500 Heart rate 61 /min [facility] 04-28-2024 09:48-0500 Respiratory rate 18 /min [facility] 04-28-2024 09:48-0500 SaO2% (BldA) [Mass fraction] 96 % [facility] 04-28-2024 09:48-0500 Systolic blood pressure 130 mm[Hg] [facility] 04-10-2024 12:11-0400 Body temperature 98.1 [degF] Doretha Harris MD Work Phone: [facility] 04-10-2024 12:11-0400 Diastolic blood pressure 58 mm[Hg] Doretha Harris MD Work Phone: [facility] 04-10-2024 12:11-0400 Heart rate 82 /min Doretha Harris MD Work Phone: [facility] 04-10-2024 12:11-0400 Respiratory rate 17 /min Doretha Harris MD Work Phone: [facility] 04-10-2024 12:11-0400 Systolic blood pressure 118 mm[Hg] Doretha Harris MD Work Phone: [facility] 04-10-2024 09:20-0400 SaO2% (BldA) [Mass fraction] 93 % Doretha Harris MD Work Phone: [facility] 04-09-2024 15:07-0400 Body temperature 37 Doretha Harris MD Work Phone: [facility] 04-09-2024 15:07-0400 SaO2% (BldA) [Mass fraction] 100 % Doretha Harris MD Work Phone: [facility] 04-09-2024 14:47-0400 Body temperature 37.0 degrees Celsius [facility] Comment on above: Performed By: #### [id number] #### TITUS Mercado ([id number]) [facility] ([facility]) [address] [place] [id number] 04-09-2024 14:47-0400 SaO2% (BldA) [Mass fraction] 100 % SHIMON HEATON [facility] Comment on above: Performed By: #### [id number] #### TITUS Mercado ([id number]) [facility] ([facility]) [address] [place] [address] 04-09-2024 12:11-0400 Body height 172.7 cm Doretha Harris MD Work Phone: [facility] 04-09-2024 12:11-0400 Body mass index (BMI) [Ratio] 27.12 kg/m2 Doretha Harris MD Work Phone: [facility] 04-09-2024 12:11-0400 Body weight 80.9 kg Doretha Harris MD Work Phone: [facility] 04-01-2024 10:47-0400 Body height 172.72 cm [facility] 04-01-2024 10:47-0400 Body mass index (BMI) [Ratio] 27.2 kg/m2 [facility] 04-01-2024 10:47-0400 Body weight 81.19 kg [facility] 04-01-2024 10:47-0400 Diastolic blood pressure 70 mm[Hg] [facility] 04-01-2024 10:47-0400 Heart rate 50 /min [facility] 04-01-2024 10:47-0400 Respiratory rate 16 /min [facility] 04-01-2024 10:47-0400 SaO2% (BldA) [Mass fraction] 99 % [facility] 04-01-2024 10:47-0400 Systolic blood pressure 120 mm[Hg] [facility] 01-31-2024 10:24-0400 Body height 172.72 cm [facility] 01-31-2024 10:24-0400 Body mass index (BMI) [Ratio] 27.3 kg/m2 [facility] 01-31-2024 10:24-0400 Body weight 81.64 kg [facility] 01-31-2024 10:24-0400 Diastolic blood pressure 70 mm[Hg] [facility] 01-31-2024 10:24-0400 Heart rate 75 /min [facility] 01-31-2024 10:24-0400 Respiratory rate 18 /min [facility] 01-31-2024 10:24-0400 SaO2% (BldA) [Mass fraction] 98 % [facility] 01-31-2024 10:24-0400 Systolic blood pressure 122 mm[Hg] [facility] 01-03-2024 13:36-0400 Body height 172.7 cm Doretha Harris MD Work Phone: [facility] 01-03-2024 13:36-0400 Body mass index (BMI) [Ratio] 27.43 kg/m2 Doretha Harris MD Work Phone: [facility] 01-03-2024 13:36-0400 Body weight 81.83 kg Doretha Harris MD Work Phone: [facility] 01-03-2024 13:36-0400 Diastolic blood pressure 80 mm[Hg] Doretha Harris MD Work Phone: [facility] 01-03-2024 13:36-0400 Heart rate 80 /min Doretha Harris MD Work Phone: [facility] 01-03-2024 13:36-0400 Systolic blood pressure 160 mm[Hg] Doretha Harris MD Work Phone: [facility] 12-13-2023 10:00-0400 Body mass index (BMI) [Ratio] 27.1 kg/m2 Helder Jack MD Work Phone: [facility] 12-13-2023 10:00-0400 Body temperature 97.5 [degF] Helder Jack MD Work Phone: [facility] 12-13-2023 10:00-0400 Body weight 80.83 kg Helder Jack MD Work Phone: [facility] 12-13-2023 10:00-0400 Diastolic blood pressure 59 mm[Hg] Helder Jack MD Work Phone: [facility] 12-13-2023 10:00-0400 Heart rate 92 /min Helder Jack MD Work Phone: [facility] 12-13-2023 10:00-0400 Respiratory rate 17 /min Helder Jack MD Work Phone: [facility] 12-13-2023 10:00-0400 SaO2% (BldA) [Mass fraction] 96 % Helder Jack MD Work Phone: [facility] 12-13-2023 10:00-0400 Systolic blood pressure 133 mm[Hg] Helder Jack MD Work Phone: [facility] 12-12-2023 13:08-0400 Body height 172.7 cm Solomon Milks PA-C Work Phone: [facility] 12-12-2023 13:08-0400 Body mass index (BMI) [Ratio] 26.91 kg/m2 Solomon Milks PA-C Work Phone: [facility] 12-12-2023 13:08-0400 Body weight 80.29 kg Solomon Milks PA-C Work Phone: [facility] 12-12-2023 13:08-0400 Diastolic blood pressure 70 mm[Hg] Solomon Milks PA-C Work Phone: [facility] 12-12-2023 13:08-0400 Heart rate 91 /min Solomon Milks PA-C Work Phone: [facility] 12-12-2023 13:08-0400 Systolic blood pressure 116 mm[Hg] Solomon Milks PA-C Work Phone: [facility] 12-03-2023 10:51-0400 Body height 172.72 cm DO Griselda Kuns Work Phone: [facility] 12-03-2023 10:51-0400 Body mass index (BMI) [Ratio] 26.1 kg/m2 DO Griselda Kuns Work Phone: [facility] 12-03-2023 10:51-0400 Body weight 78.01 kg DO Griselda Kuns Work Phone: [facility] 12-03-2023 10:51-0400 Diastolic blood pressure 82 mm[Hg] DO Griselda Kuns Work Phone: [facility] 12-03-2023 10:51-0400 Heart rate 97 /min DO Griselda Kuns Work Phone: [facility] 12-03-2023 10:51-0400 Respiratory rate 18 /min DO Griselda Kuns Work Phone: [facility] 12-03-2023 10:51-0400 SaO2% (BldA) [Mass fraction] 96 % DO Griselda Kuns Work Phone: [facility] 12-03-2023 10:51-0400 Systolic blood pressure 110 mm[Hg] DO Griselda Kuns Work Phone: [facility] 11-02-2023 09:49-0400 Body height 170.6 cm Racquel Cole MD Work Phone: [facility] 11-02-2023 09:49-0400 Body mass index (BMI) [Ratio] 27.38 kg/m2 Racquel Cole MD Work Phone: [facility] 11-02-2023 09:49-0400 Body temperature 97.7 [degF] Racquel Cole MD Work Phone: [facility] 11-02-2023 09:49-0400 Body weight 79.7 kg Racquel Cole MD Work Phone: [facility] 11-02-2023 09:49-0400 Diastolic blood pressure 76 mm[Hg] Racquel Cole MD Work Phone: [facility] 11-02-2023 09:49-0400 Heart rate 72 /min Racquel Cole MD Work Phone: [facility] 11-02-2023 09:49-0400 Respiratory rate 16 /min Racquel Cole MD Work Phone: [facility] 11-02-2023 09:49-0400 SaO2% (BldA) [Mass fraction] 99 % Racquel Cole MD Work Phone: [facility] 11-02-2023 09:49-0400 Systolic blood pressure 130 mm[Hg] Racquel Cole MD Work Phone: [facility] 10-29-2023 10:32-0400 Body height 172.72 cm DO Griselda Kuns Work Phone: [facility] 10-29-2023 10:32-0400 Body mass index (BMI) [Ratio] 26.6 kg/m2 DO Griselda Kuns Work Phone: [facility] 10-29-2023 10:32-0400 Body weight 79.37 kg DO Griselda Kuns Work Phone: [facility] 10-29-2023 10:32-0400 Diastolic blood pressure 82 mm[Hg] DO Griselda Kuns Work Phone: [facility] 10-29-2023 10:32-0400 Heart rate 71 /min DO Griselda Kuns Work Phone: [facility] 10-29-2023 10:32-0400 Respiratory rate 16 /min DO Griselda Kuns Work Phone: [facility] 10-29-2023 10:32-0400 SaO2% (BldA) [Mass fraction] 98 % DO Griselda Kuns Work Phone: [facility] 10-29-2023 10:32-0400 Systolic blood pressure 128 mm[Hg] DO Griselda Kuns Work Phone: [facility] 10-18-2023 09:02-0400 Diastolic blood pressure 68 mm[Hg] DO Griselda Kuns Work Phone: [facility] 10-18-2023 09:02-0400 Systolic blood pressure 132 mm[Hg] DO Griselda Kuns Work Phone: [facility] 10-18-2023 08:58-0400 Body height 172.72 cm DO Griselda Kuns Work Phone: [facility] 10-18-2023 08:58-0400 Body mass index (BMI) [Ratio] 26.6 kg/m2 DO Griselda Kuns Work Phone: [facility] 10-18-2023 08:58-0400 Body weight 79.37 kg DO Griselda Kuns Work Phone: [facility] 10-18-2023 08:58-0400 Heart rate 57 /min DO Griselda Kuns Work Phone: [facility] 10-18-2023 08:58-0400 Respiratory rate 18 /min DO Griselda Kuns Work Phone: [facility] 10-18-2023 08:58-0400 SaO2% (BldA) [Mass fraction] 98 % DO Griselda Kuns Work Phone: [facility] 10-05-2023 09:37-0400 Body height 172.2 cm Helder Jack MD Work Phone: [facility] 10-05-2023 09:37-0400 Body mass index (BMI) [Ratio] 26.25 kg/m2 Helder Jack MD Work Phone: [facility] 10-05-2023 09:37-0400 Body temperature 97.3 [degF] Helder Jack MD Work Phone: [facility] 10-05-2023 09:37-0400 Body weight 77.84 kg Helder Jack MD Work Phone: [facility] 10-05-2023 09:37-0400 Diastolic blood pressure 68 mm[Hg] Helder Jack MD Work Phone: [facility] 10-05-2023 09:37-0400 Heart rate 81 /min Helder Jack MD Work Phone: [facility] 10-05-2023 09:37-0400 Respiratory rate 16 /min Helder Jack MD Work Phone: [facility] 10-05-2023 09:37-0400 SaO2% (BldA) [Mass fraction] 99 % Helder Jack MD Work Phone: [facility] 10-05-2023 09:37-0400 Systolic blood pressure 116 mm[Hg] Helder Jack MD Work Phone: [facility] 09-05-2023 13:44-0400 Diastolic blood pressure 99 mm[Hg] DO Griselda Kuns Work Phone: [facility] 09-05-2023 13:44-0400 Systolic blood pressure 160 mm[Hg] DO Griselda Kuns Work Phone: [facility] 09-05-2023 13:41-0400 Body height 172.72 cm DO Griselda Kuns Work Phone: [facility] 09-05-2023 13:41-0400 Body mass index (BMI) [Ratio] 27.8 kg/m2 DO Griselda Kuns Work Phone: [facility] 09-05-2023 13:41-0400 Body weight 83 kg DO Griselda Kuns Work Phone: [facility] 09-05-2023 13:41-0400 Heart rate 66 /min DO Griselda Kuns Work Phone: [facility] 09-05-2023 13:41-0400 Respiratory rate 18 /min DO Griselda Kuns Work Phone: [facility] 09-05-2023 13:41-0400 SaO2% (BldA) [Mass fraction] 99 % DO Griselda Kuns Work Phone: [facility] 09-05-2023 11:58-0400 Body height 172.72 cm DO Griselda Kuns Work Phone: [facility] 09-05-2023 11:58-0400 Body mass index (BMI) [Ratio] 27.3 kg/m2 DO Griselda Kuns Work Phone: [facility] 09-05-2023 11:58-0400 Body temperature 97.8 [degF] DO Griselda Kuns Work Phone: [facility] 09-05-2023 11:58-0400 Body weight 81.64 kg DO Griselda Kuns Work Phone: [facility] 09-05-2023 11:58-0400 Diastolic blood pressure 92 mm[Hg] DO Griselda Kuns Work Phone: [facility] 09-05-2023 11:58-0400 Heart rate 71 /min DO Griselda Kuns Work Phone: [facility] 09-05-2023 11:58-0400 SaO2% (BldA) [Mass fraction] 96 % DO Griselda Kuns Work Phone: [facility] 09-05-2023 11:58-0400 Systolic blood pressure 160 mm[Hg] DO Griselda Kuns Work Phone: [facility] 08-15-2023 15:41-0500 Body height 172.72 cm DO Griselda Kuns Work Phone: [facility] 08-15-2023 15:41-0500 Body mass index (BMI) [Ratio] 28.1 kg/m2 DO Griselda Kuns Work Phone: [facility] 08-15-2023 15:41-0500 Body weight 84.08 kg DO Griselda Kuns Work Phone: [facility] 08-15-2023 15:41-0500 Diastolic blood pressure 72 mm[Hg] DO Griselda Kuns Work Phone: [facility] 08-15-2023 15:41-0500 Heart rate 62 /min DO Griselda Kuns Work Phone: [facility] 08-15-2023 15:41-0500 Respiratory rate 18 /min DO Griselda Kuns Work Phone: [facility] 08-15-2023 15:41-0500 SaO2% (BldA) [Mass fraction] 99 % DO Griselda Kuns Work Phone: [facility] 08-15-2023 15:41-0500 Systolic blood pressure 128 mm[Hg] DO Griselda Kuns Work Phone: [facility] 08-02-2023 13:11-0500 Body height 172.72 cm DO Griselda Kuns Work Phone: [facility] 08-02-2023 13:11-0500 Body mass index (BMI) [Ratio] 27.9 kg/m2 DO Griselda Kuns Work Phone: [facility] 08-02-2023 13:11-0500 Body weight 83.46 kg DO Griselda Kuns Work Phone: [facility] 08-02-2023 13:11-0500 Diastolic blood pressure 70 mm[Hg] DO Griselda Kuns Work Phone: [facility] 08-02-2023 13:11-0500 Heart rate 68 /min DO Griselda Kuns Work Phone: [facility] 08-02-2023 13:11-0500 Respiratory rate 16 /min DO Griselda Kuns Work Phone: [facility] 08-02-2023 13:11-0500 SaO2% (BldA) [Mass fraction] 97 % DO Griselda Kuns Work Phone: [facility] 08-02-2023 13:11-0500 Systolic blood pressure 130 mm[Hg] DO Griselda Kuns Work Phone: [facility] 07-02-2023 09:30-0500 Body height 172.72 cm Griselda Kuns Other [facility] 07-02-2023 09:30-0500 Body mass index (BMI) [Ratio] 28.28 kg/m2 Griselda Kuns Other [employer] [facility] [employer] Other 07-02-2023 09:30-0500 Body weight 84.37 kg Griselda Kuns Other [employer] [facility] [employer] Other 07-02-2023 09:30-0500 Body weight 84.36 kg DO Griselda Kuns Work Phone: [facility] 07-02-2023 09:30-0500 Diastolic blood pressure 92 mm[Hg] Griselda Kuns Other [facility] 07-02-2023 09:30-0500 Respiratory rate 16 /min Griselda Kuns Other [employer] Other 07-02-2023 09:30-0500 SaO2% (BldA) [Mass fraction] 97 % Griselda Kuns Other [employer] Other 07-02-2023 09:30-0500 Systolic blood pressure 160 mm[Hg] Griselda Kuns Other [facility] 05-31-2023 13:45-0500 Body height 172.72 cm Griselda Kuns Other [facility] 05-31-2023 13:45-0500 Body mass index (BMI) [Ratio] 27.37 kg/m2 Griselda Andreas Other [employer] [facility] [employer] Other 05-31-2023 13:45-0500 Body weight 81.65 kg Griselda Kuns Other [employer] Other 05-31-2023 13:45-0500 Body weight 81.64 kg DO Griselda Kuns Work Phone: [facility] 05-31-2023 13:45-0500 Diastolic blood pressure 80 mm[Hg] Griselda Kuns Other [facility] 05-31-2023 13:45-0500 Respiratory rate 18 /min Griselda Andreas Other [facility] [employer] Other 05-31-2023 13:45-0500 SaO2% (BldA) [Mass fraction] 98 % Griselda Andreas Other [facility] [employer] Other 05-31-2023 13:45-0500 Systolic blood pressure 120 mm[Hg] Griselda Kuns Other [facility] 05-30-2023 11:15-0500 Body height 172.72 cm Ruddy Harvey Other [facility] 05-30-2023 11:15-0500 Body mass index (BMI) [Ratio] 27.52 kg/m2 Ruddy Harvey Other [employer] Other 05-30-2023 11:15-0500 Body temperature 97.8 [degF] Ruddy Harvey Other [employer] Other 05-30-2023 11:15-0500 Body weight 82.1 kg Ruddy Harvey Other [facility] 05-30-2023 11:15-0500 SaO2% (BldA) [Mass fraction] 98 % Ruddy Wes Other [employer] [facility] [employer] Other 05-15-2023 13:20-0500 Body height 172.72 cm Lilliam Kamla Other [facility] 05-15-2023 13:20-0500 Body mass index (BMI) [Ratio] 27.52 kg/m2 Lilliam Kamla Other [facility] [employer] Other 05-15-2023 13:20-0500 Body weight 82.1 kg Lilliam Kamla Other [facility] 05-15-2023 13:20-0500 Diastolic blood pressure 84 mm[Hg] Lilliam Kamla Other [facility] 05-15-2023 13:20-0500 Respiratory rate 18 /min Lilliam Kamla Other [facility] [employer] Other 05-15-2023 13:20-0500 SaO2% (BldA) [Mass fraction] 98 % Lilliam Kamla Other [facility] [employer] Other 05-15-2023 13:20-0500 Systolic blood pressure 142 mm[Hg] Lilliam Kamla Other [facility] 05-07-2023 13:16-0500 Diastolic blood pressure 78 mm[Hg] DO Griselda Kuns Work Phone: [facility] 05-07-2023 13:16-0500 Heart rate 75 /min DO Griselda Kuns Work Phone: [facility] 05-07-2023 13:16-0500 Respiratory rate 16 /min DO Griselda Kuns Work Phone: [facility] 05-07-2023 13:16-0500 SaO2% (BldA) [Mass fraction] 96 % DO [employer] Work Phone: [facility] 05-07-2023 13:16-0500 Systolic blood pressure 135 mm[Hg] DO [employer] Work Phone: [facility] 05-07-2023 10:30-0500 Inhaled oxygen flow rate 3 L/min DO [employer] Phone: [facility] 05-07-2023 08:29-0500 Body height 172.72 cm DO [employer] Work Phone: [facility] 05-07-2023 08:29-0500 Body weight 79.37 kg DO [employer] Phone: [facility] 05-03-2023 09:15-0500 Body height 172.72 cm Ruddy Harvey Other [employer] Other 05-03-2023 09:15-0500 Body mass index (BMI) [Ratio] 27.06 kg/m2 Ruddy Harvey Other [employer] Other 05-03-2023 09:15-0500 Body temperature 97.8 [degF] Ruddy Harvey Other [employer] Other 05-03-2023 09:15-0500 Body weight 80.74 kg Ruddy Harvey Other [employer] Other 05-03-2023 09:15-0500 Diastolic blood pressure 78 mm[Hg] Ruddy Harvey Other [employer] Other 05-03-2023 09:15-0500 SaO2% (BldA) [Mass fraction] 97 % Ruddy Harvey Other [employer] Other 05-03-2023 09:15-0500 Systolic blood pressure 146 mm[Hg] Ruddy Harvey Other [employer] Other 05-01-2023 10:30-0500 Body height 172.72 cm Griseldakeith Eckerts Other [employer] Other 05-01-2023 10:30-0500 Body mass index (BMI) [Ratio] 27.06 kg/m2 Griselda Andreas Other [employer] Other 05-01-2023 10:30-0500 Body weight 80.74 kg Griselda Kuns Other [employer] Other 05-01-2023 10:30-0500 Diastolic blood pressure 80 mm[Hg] Griselda Kuns Other [employer] Other 05-01-2023 10:30-0500 Respiratory rate 18 /min Griselda Kuns Other [employer] Other 05-01-2023 10:30-0500 SaO2% (BldA) [Mass fraction] 96 % Griselda Kuns Other [employer] Other 05-01-2023 10:30-0500 Systolic blood pressure 144 mm[Hg] Griselda Kuns Other [employer] Other 04-11-2023 10:40-0400 Body height 172.72 cm Lilliam Cason Other [employer] Other 04-11-2023 10:40-0400 Body mass index (BMI) [Ratio] 26.67 kg/m2 Lilliam Cason Other [employer] Other 04-11-2023 10:40-0400 Body weight 79.56 kg Lilliam Cason Other [employer] Other 04-11-2023 10:40-0400 Diastolic blood pressure 80 mm[Hg] Lilliam Cason Other [employer] Other 04-11-2023 10:40-0400 SaO2% (BldA) [Mass fraction] 96 % Lilliam Cason Other [employer] Other 04-11-2023 10:40-0400 Systolic blood pressure 148 mm[Hg] Lilliam Cason Other [employer] Other 03-21-2023 02:42-0400 Diastolic blood pressure 98 mm[Hg] DO Griselda Kuns Work Phone: [facility] 03-21-2023 02:42-0400 Heart rate 72 /min DO Griselda Kuns Work Phone: [facility] 03-21-2023 02:42-0400 Respiratory rate 16 /min DO Griselda Kuns Work Phone: [facility] 03-21-2023 02:42-0400 SaO2% (BldA) [Mass fraction] 97 % DO Griselda Kuns Work Phone: [facility] 03-21-2023 02:42-0400 Systolic blood pressure 170 mm[Hg] DO Griselda Kuns Work Phone: [facility] 03-21-2023 00:12-0400 Body height 172.72 cm DO Griselda Kuns Work Phone: [facility] 03-21-2023 00:12-0400 Body temperature 98 [degF] DO Griselda Kuns Work Phone: [facility] 03-21-2023 00:12-0400 Body weight 79.37 kg DO Griselda Kuns Work Phone: [facility] 03-15-2023 10:30-0400 Body height 172.72 cm Griselda Kuns Other [facility] [employer] Other 03-15-2023 10:30-0400 Body mass index (BMI) [Ratio] 26.76 kg/m2 Griselda Kuns Other [employer] Other 03-15-2023 10:30-0400 Body weight 79.83 kg Griselda Kuns Other [employer] Other 03-15-2023 10:30-0400 Diastolic blood pressure 86 mm[Hg] Griselda Kuns Other [employer] Other 03-15-2023 10:30-0400 Respiratory rate 16 /min Griselda Kuns Other [employer] Other 03-15-2023 10:30-0400 SaO2% (BldA) [Mass fraction] 97 % Griselda Kuns Other [employer] Other 03-15-2023 10:30-0400 Systolic blood pressure 174 mm[Hg] Griselda Kuns Other [employer] Other 03-08-2023 10:00-0400 Body height 172.72 cm Griselda Kuns Other [employer] Other 03-08-2023 10:00-0400 Body mass index (BMI) [Ratio] 27.18 kg/m2 Griselda Kuns Other [employer] Other 03-08-2023 10:00-0400 Body weight 81.1 kg Griselda Kuns Other [employer] Other 03-08-2023 10:00-0400 Diastolic blood pressure 82 mm[Hg] Griselda Kuns Other [employer] Other 03-08-2023 10:00-0400 Respiratory rate 16 /min Griselda Kuns Other [employer] Other 03-08-2023 10:00-0400 SaO2% (BldA) [Mass fraction] 96 % Griselda Andreas Other [employer] Other 03-08-2023 10:00-0400 Systolic blood pressure 118 mm[Hg] Griselda Kuns Other [employer] Other 02-26-2023 14:13-0400 Body height 172.72 cm DO Griselda Kuns Work Phone: [facility] 02-26-2023 14:13-0400 Body temperature 98 [degF] DO Griselda Kuns Work Phone: [facility] 02-26-2023 14:13-0400 Body weight 78.6 kg DO Griselda Kuns Work Phone: [facility] 02-26-2023 14:13-0400 Diastolic blood pressure 77 mm[Hg] DO Griselda Kuns Work Phone: [facility] 02-26-2023 14:13-0400 Heart rate 56 /min DO Griselda Kuns Work Phone: [facility] 02-26-2023 14:13-0400 Respiratory rate 18 /min DO Griselda Kuns Work Phone: [facility] 02-26-2023 14:13-0400 SaO2% (BldA) [Mass fraction] 96 % DO Griselda Kuns Work Phone: [facility] 02-26-2023 14:13-0400 Systolic blood pressure 142 mm[Hg] DO Griselda Kuns Work Phone: [facility] 12-05-2022 10:15-0400 Body height 172.72 cm Griselda Andreas Other [employer] [facility] [employer] Other 12-05-2022 10:15-0400 Body mass index (BMI) [Ratio] 25.85 kg/m2 Griselda Andreas Other [employer] Other 12-05-2022 10:15-0400 Body weight 77.11 kg Griselda Andreas Other [employer] Other 12-05-2022 10:15-0400 Diastolic blood pressure 80 mm[Hg] Griselda Kuns Other [employer] Other 12-05-2022 10:15-0400 Respiratory rate 16 /min Griselda Andreas Other [employer] Other 12-05-2022 10:15-0400 SaO2% (BldA) [Mass fraction] 96 % Griselda Andreas Other [employer] Other 12-05-2022 10:15-0400 Systolic blood pressure 140 mm[Hg] Griselda Kuns Other [employer] Other 09-13-2022 10:57-0400 Body height 170.6 cm Kelly Perez PA-C Work Phone: [facility] 09-13-2022 10:57-0400 Body temperature 97.39 [degF] Kelly Perez PA-C Work Phone: [facility] 09-13-2022 10:57-0400 Body weight 77.34 kg Kelly Perez PA-C Work Phone: [facility] 09-13-2022 10:57-0400 Diastolic blood pressure 61 mm[Hg] Kelly Perez PA-C Work Phone: [facility] 09-13-2022 10:57-0400 Heart rate 70 /min Kelly Perez PA-C Work Phone: [facility] 09-13-2022 10:57-0400 Respiratory rate 18 /min Kelly Perez PA-C Work Phone: [facility] 09-13-2022 10:57-0400 SaO2% (BldA) [Mass fraction] 100 % Kelly Perez PA-C Work Phone: [facility] 09-13-2022 10:57-0400 Systolic blood pressure 133 mm[Hg] Kelly Perez PA-C Work Phone: [facility] 08-31-2022 11:15-0400 Body height 172.72 cm Griselda Helprroge Other [employer] Other 08-31-2022 11:15-0400 Body mass index (BMI) [Ratio] 26.79 kg/m2 Griselda [employer] Other [employer] Other 08-31-2022 11:15-0400 Body weight 79.92 kg Griselda [employer] Other [employer] Other 08-31-2022 11:15-0400 Diastolic blood pressure 78 mm[Hg] Griselda [employer] Other [employer] Other 08-31-2022 11:15-0400 Respiratory rate 16 /min Griselda Kuns Other [employer] Other 08-31-2022 11:15-0400 SaO2% (BldA) [Mass fraction] 98 % Griselda Kuns Other [employer] Other 08-31-2022 11:15-0400 Systolic blood pressure 138 mm[Hg] Griselda Kuns Other [employer] Other 08-01-2022 10:30-0500 Body height 172.72 cm Griselda Kuns Other [employer] Other 08-01-2022 10:30-0500 Body mass index (BMI) [Ratio] 27.27 kg/m2 Griselda Kuns Other [employer] Other 08-01-2022 10:30-0500 Body weight 81.38 kg Griselda Kuns Other [employer] Other 08-01-2022 10:30-0500 Diastolic blood pressure 82 mm[Hg] Griselda Kuns Other [employer] Other 08-01-2022 10:30-0500 Respiratory rate 16 /min Griselda Kuns Other [employer] Other 08-01-2022 10:30-0500 SaO2% (BldA) [Mass fraction] 99 % Griselda Kuns Other [employer] Other 08-01-2022 10:30-0500 Systolic blood pressure 146 mm[Hg] Griselda Kuns Other [facility] [employer] Other 07-17-2022 09:45-0500 Diastolic blood pressure 98 mm[Hg] DO Griselda Kuns Work Phone: [facility] 07-17-2022 09:45-0500 Heart rate 69 /min DO Griselda Kuns Work Phone: [facility] 07-17-2022 09:45-0500 Respiratory rate 16 /min DO Griselda Kuns Work Phone: [facility] 07-17-2022 09:45-0500 SaO2% (BldA) [Mass fraction] 99 % DO Griselda Kuns Work Phone: [facility] 07-17-2022 09:45-0500 Systolic blood pressure 144 mm[Hg] DO Griselda Kuns Work Phone: [facility] 07-17-2022 07:58-0500 Body height 172.72 cm DO Griselda Kuns Work Phone: [facility] 07-17-2022 07:58-0500 Body weight 79.37 kg DO Griselda Kuns Work Phone: [facility] 06-28-2022 10:20-0500 Body height 172.72 cm Trish Blades Other [employer] Other 06-28-2022 10:20-0500 Body mass index (BMI) [Ratio] 26.67 kg/m2 Trish Blades Other [employer] Other 06-28-2022 10:20-0500 Body weight 79.56 kg Trish Blades Other [employer] Other 06-28-2022 10:20-0500 Diastolic blood pressure 80 mm[Hg] Trish Blades Other [employer] Other 06-28-2022 10:20-0500 Systolic blood pressure 140 mm[Hg] Trish Hongs Other [employer] Other 05-26-2022 13:30-0500 Body height 172.72 cm Griselda Kuns Other [employer] Other 05-26-2022 13:30-0500 Body mass index (BMI) [Ratio] 26.7 kg/m2 Griselda Kuns Other [employer] Other 05-26-2022 13:30-0500 Body weight 79.65 kg Griselda Kuns Other [employer] Other 05-26-2022 13:30-0500 Diastolic blood pressure 82 mm[Hg] Griselda Kuns Other [employer] Other 05-26-2022 13:30-0500 Respiratory rate 18 /min Griselda Kuns Other [employer] Other 05-26-2022 13:30-0500 SaO2% (BldA) [Mass fraction] 98 % Griselda Kuns Other [employer] Other 05-26-2022 13:30-0500 Systolic blood pressure 144 mm[Hg] Griselda Kuns Other [employer] Other 04-17-2022 00:30-0400 Diastolic blood pressure 64 mm[Hg] DO Griselda Kuns Work Phone: [facility] 04-17-2022 00:30-0400 Heart rate 78 /min DO Griselda Kuns Work Phone: [facility] 04-17-2022 00:30-0400 Respiratory rate 16 /min DO Griselda Kuns Work Phone: [facility] 04-17-2022 00:30-0400 SaO2% (BldA) [Mass fraction] 97 % DO Griselda Kuns Work Phone: [facility] 04-17-2022 00:30-0400 Systolic blood pressure 135 mm[Hg] DO Griselda Kuns Work Phone: [facility] 04-16-2022 19:45-0400 Body height 172.72 cm DO Griselda Kuns Work Phone: [facility] 04-16-2022 19:45-0400 Body temperature 98.1 [degF] DO Griselda Kuns Work Phone: [facility] 04-16-2022 19:45-0400 Body weight 78 kg DO Griselda Kuns Work Phone: [facility] 04-06-2022 16:31-0400 Body height 172.72 cm DO Griselda Kuns Work Phone: [facility] 04-06-2022 16:31-0400 Body temperature 98.1 [degF] DO Griselda Kuns Work Phone: [facility] 04-06-2022 16:31-0400 Body weight 79.37 kg DO Griselda Kuns Work Phone: [facility] 04-06-2022 16:31-0400 Diastolic blood pressure 108 mm[Hg] DO Griselda Kuns Work Phone: [facility] 04-06-2022 16:31-0400 Heart rate 95 /min DO Griselda Kuns Work Phone: [facility] 04-06-2022 16:31-0400 Respiratory rate 19 /min DO Griselda Kuns Work Phone: [facility] 04-06-2022 16:31-0400 SaO2% (BldA) [Mass fraction] 97 % DO Griselda Kuns Work Phone: [facility] 04-06-2022 16:31-0400 Systolic blood pressure 138 mm[Hg] DO Griselda Kuns Work Phone: [facility] 03-16-2022 13:30-0400 Body height 172.72 cm Griselda Helprs Other [employer] Other 03-16-2022 13:30-0400 Body mass index (BMI) [Ratio] 26.91 kg/m2 Griselda Helprs Other [employer] Other 03-16-2022 13:30-0400 Body weight 80.29 kg Griselda Helprs Other [employer] Other 03-16-2022 13:30-0400 Diastolic blood pressure 80 mm[Hg] Griselda Kuns Other [employer] Other 03-16-2022 13:30-0400 Respiratory rate 16 /min Griselda Kuns Other [employer] Other 03-16-2022 13:30-0400 SaO2% (BldA) [Mass fraction] 97 % Griselda Helprs Other [employer] Other 03-16-2022 13:30-0400 Systolic blood pressure 140 mm[Hg] Griselda Kuns Other [employer] Other 01-30-2022 12:00-0400 Body height 172.72 cm Griselda Helprs Other [employer] Other 01-30-2022 12:00-0400 Body mass index (BMI) [Ratio] 26.3 kg/m2 Griselda Kuns Other [employer] Other 01-30-2022 12:00-0400 Body weight 78.47 kg Griselda Kuns Other [employer] Other 01-30-2022 12:00-0400 Diastolic blood pressure 82 mm[Hg] Griselda Kuns Other [employer] Other 01-30-2022 12:00-0400 Respiratory rate 16 /min Griselda Kuns Other [employer] Other 01-30-2022 12:00-0400 SaO2% (BldA) [Mass fraction] 99 % Griselda Kuns Other [employer] Other 01-30-2022 12:00-0400 Systolic blood pressure 146 mm[Hg] Griselda Kuns Other [employer] Other 12-26-2021 11:00-0400 Body height 172.72 cm Griselda Kuns Other [employer] Other 12-26-2021 11:00-0400 Body mass index (BMI) [Ratio] 26.61 kg/m2 Griselda Kuns Other [employer] Other 12-26-2021 11:00-0400 Body weight 79.38 kg Griselda Kuns Other [employer] Other 12-26-2021 11:00-0400 Diastolic blood pressure 80 mm[Hg] Griselda Kuns Other [employer] Other 12-26-2021 11:00-0400 Respiratory rate 16 /min Griselda Kuns Other [employer] Other 12-26-2021 11:00-0400 SaO2% (BldA) [Mass fraction] 96 % Griselda Kuns Other [employer] Other 12-26-2021 11:00-0400 Systolic blood pressure 166 mm[Hg] Griselda Kuns Other [employer] Other 12-05-2021 10:15-0400 Body height 172.72 cm Griselda Kuns Other [employer] Other 12-05-2021 10:15-0400 Body mass index (BMI) [Ratio] 269.71 kg/m2 Griselda Kuns Other [employer] Other 12-05-2021 10:15-0400 Body weight 804.69 kg Griselda Kuns Other [employer] Other 12-05-2021 10:15-0400 Diastolic blood pressure 72 mm[Hg] Griselda Kuns Other [employer] Other 12-05-2021 10:15-0400 Respiratory rate 18 /min Griselda Kuns Other [employer] Other 12-05-2021 10:15-0400 SaO2% (BldA) [Mass fraction] 99 % Griselda Kuns Other [employer] Other 12-05-2021 10:15-0400 Systolic blood pressure 130 mm[Hg] Griselda Kuns Other [employer] Other 11-08-2021 11:15-0400 Body height 172.72 cm [employer]iseld[employer]ith [employer] Other [employer] Other 11-08-2021 11:15-0400 Body mass index (BMI) [Ratio] 27.06 kg/m2 Griseldakeith Eckerts Other [employer] Other 11-08-2021 11:15-0400 Body weight 80.74 kg Griseldakeith Eckerts Other [facility] [employer] Other 11-08-2021 11:15-0400 Diastolic blood pressure 80 mm[Hg] Griseldakeith Eckerts Other [facility] [employer] Other 11-08-2021 11:15-0400 Respiratory rate 16 /min Griseldakeith Eckerts Other [facility] [employer] Other 11-08-2021 11:15-0400 SaO2% (BldA) [Mass fraction] 97 % Griseldakeith Hastings Other [facility] [employer] Other 11-08-2021 11:15-0400 Systolic blood pressure 128 mm[Hg] Griseldakeith Eckerts Other [facility] [employer] Other 11-03-2021 09:38-0400 Body height 170.51 cm Griselda R Andreas Work Phone: [facility] Work Phone: 11-03-2021 09:38-0400 Body mass index (BMI) [Ratio] 27.05 kg/m2 Griselda R Kuns Work Phone: [facility] Work Phone: 11-03-2021 09:38-0400 Body surface area Derived from formula 1.91 m2 Griselda R Kuns Work Phone: [facility] Work Phone: 11-03-2021 09:38-0400 Body temperature 98.2 [degF] Griseldakeith Hastings Work Phone: [facility] Work Phone: 11-03-2021 09:38-0400 Body weight 78.65 kg Griseldakeith Hastings Work Phone: [facility] Work Phone: 11-03-2021 09:38-0400 Diastolic blood pressure 67 mm[Hg] Griseldakeith Hastings Work Phone: [facility] Work Phone: 11-03-2021 09:38-0400 Heart rate 63 /min Griseldakeith Hastings Work Phone: [facility] Work Phone: 11-03-2021 09:38-0400 Respiratory rate 16 /min Griseldakeith Hastings Work Phone: [facility] Work Phone: 11-03-2021 09:38-0400 SaO2% (BldA) [Mass fraction] 99 % Griselda Neisha Hastings Work Phone: [facility] Work Phone: 11-03-2021 09:38-0400 Systolic blood pressure 147 mm[Hg] Griselda Neisha Hastings Work Phone: [facility] Work Phone: 11-03-2021 09:38-0400 7 1 Griseldakeith Hastings Work Phone: [facility] Work Phone: Comment on above: [employer] 11-01-2021 13:30-0400 Body height 172.72 cm Griselda Kuns Other [employer] Other 11-01-2021 13:30-0400 Body mass index (BMI) [Ratio] 26.61 kg/m2 Griselda Kuns Other [employer] Other 11-01-2021 13:30-0400 Body weight 79.38 kg Griselda Kuns Other [employer] Other 11-01-2021 13:30-0400 Diastolic blood pressure 78 mm[Hg] Griselda Kuns Other [employer] Other 11-01-2021 13:30-0400 Respiratory rate 18 /min Griselda Kuns Other [employer] Other 11-01-2021 13:30-0400 SaO2% (BldA) [Mass fraction] 99 % Griselda Kuns Other [employer] Other 11-01-2021 13:30-0400 Systolic blood pressure 140 mm[Hg] Griselda Kuns Other [employer] Other 10-24-2021 09:45-0400 Body height 172.72 cm Sheng Schneider Other [employer] Other 10-24-2021 09:45-0400 Body mass index (BMI) [Ratio] 26.76 kg/m2 Sheng Schneider Other [employer] Other 10-24-2021 09:45-0400 Body weight 79.83 kg Sheng Schneider Other [employer] Other 10-13-2021 09:50-0400 Body height 172 cm Racquel Cole MD Work Phone: [facility] 10-13-2021 09:50-0400 Body temperature 97.5 [degF] Racquel Cole MD Work Phone: [facility] 10-13-2021 09:50-0400 Body weight 81.28 kg Racquel Cole MD Work Phone: [facility] 10-13-2021 09:50-0400 Diastolic blood pressure 77 mm[Hg] Racquel Cole MD Work Phone: [facility] 10-13-2021 09:50-0400 Heart rate 70 /min Racquel Cole MD Work Phone: [facility] 10-13-2021 09:50-0400 Respiratory rate 16 /min Racquel Cole MD Work Phone: [facility] 10-13-2021 09:50-0400 SaO2% (BldA) [Mass fraction] 99 % Racquel Cole MD Work Phone: [facility] 10-13-2021 09:50-0400 Systolic blood pressure 152 mm[Hg] Racquel Cole MD Work Phone: [facility] 09-19-2021 10:45-0400 Body height 172.72 cm Griselda Hastings Other [employer] Other 09-19-2021 10:45-0400 Body mass index (BMI) [Ratio] 26.15 kg/m2 Griseldakeith Hastings Other [employer] Other 09-19-2021 10:45-0400 Body weight 78.02 kg Griselda Hastings Other [employer] Other 09-19-2021 10:45-0400 Diastolic blood pressure 80 mm[Hg] Griselda Hastings Other [employer] Other 09-19-2021 10:45-0400 Respiratory rate 18 /min Griselda Kuns Other [employer] Other 09-19-2021 10:45-0400 SaO2% (BldA) [Mass fraction] 99 % Griselda Kuns Other [employer] Other 09-19-2021 10:45-0400 Systolic blood pressure 140 mm[Hg] Griselda Kuns Other [employer] Other 06-30-2021 13:30-0500 Body height 172.72 cm Griselda Kuns Other [employer] Other 04-14-2021 08:45-0400 Body height 172.72 cm Griselda Kuns Other [employer] Other 04-14-2021 08:45-0400 Body mass index (BMI) [Ratio] 25.85 kg/m2 Griselda Kuns Other [employer] Other 04-14-2021 08:45-0400 Body weight 77.11 kg Griselda Kuns Other [employer] Other 04-14-2021 08:45-0400 Diastolic blood pressure 80 mm[Hg] Griselda Kuns Other [employer] Other 04-14-2021 08:45-0400 Respiratory rate 16 /min Griselda Kuns Other [employer] Other 04-14-2021 08:45-0400 SaO2% (BldA) [Mass fraction] 99 % Griselda Kuns Other [facility] [employer] Other 04-14-2021 08:45-0400 Systolic blood pressure 124 mm[Hg] Griselda Hastings Other [facility] [employer] Other Encounters Encounter Date Encounter Type Care Provider Facility Start: 03-24-2025 End: 03-24-2025 ambulatory [facility] Start: 03-18-2025 End: 03-18-2025 Bamboo flowsheet Oziel Cadena MD Work Phone: [facility] Start: 03-18-2025 End: [email or web address] Work Phone: [facility] Start: 03-18-2025 End: 03-18-2025 ambulatory OZIEL CADENA Not Available Comment on above: Other nerve root and plexus disorders (Primary Dx); Acute pain of left shoulder; Acute pain of right shoulder Start: 02-26-2025 End: 02-26-2025 Patient encounter procedure Griselda Hastings DO -Ultrasound [facility] Work Phone: Start: 02-26-2025 End: 02-26-2025 ambulatory Griselda Hastings DO Work Phone: [facility] Work Phone: Start: 02-19-2025 Patient encounter procedure Griselda Hastings DO Work Phone: [facility] Start: 02-19-2025 End: 02-19-2025 ambulatory Griselda Eckerts DO Work Phone: [facility] Work Phone: Start: 02-19-2025 End: 02-19-2025 Patient encounter procedure Griselda Hastings DO -[facility] [place] Work Phone: Start: 02-18-2025 Non-patient / Non-visit Mayra Arias DO -[facility] Work Phone: Start: 02-13-2025 End: 02-13-2025 ambulatory DEBRA FIGUEROA [facility] Start: 02-09-2025 End: 02-09-2025 ambulatory Sarina Ramsey MD Facility:[facility] Start: 02-04-2025 End: 02-04-2025 Clinical Support Oziel Cadena MD Work Phone: [facility] [place] [facility] Comment on above: Acute pain of right shoulder (Primary Dx); Nerve root and plexus disorder, unspecified; Acute pain of left shoulder Start: 02-04-2025 End: 02-04-2025 Bamboo flowsheet Oziel Cadena MD Work Phone: [facility] Start: 02-04-2025 End: 02-04-2025 Bamboo flowsheet Oziel Cadena MD Work Phone: [facility] Start: 01-27-2025 Non-patient / Non-visit Sarina daniels MD -[facility] Work Phone: Start: 01-26-2025 End: 01-26-2025 ambulatory Sarina Ramsey MD Facility:[facility] Start: 01-12-2025 End: 01-12-2025 ambulatory Griselda Hastings DO Work Phone: [facility] Work Phone: Start: 01-12-2025 End: 01-12-2025 Patient encounter procedure Solomon Mullins APRN -[facility] Work Phone: Start: 01-08-2025 End: 01-08-2025 Bamboo flowsheet Anahi Franco PA Work Phone: [facility] Start: 01-08-2025 End: 01-08-2025 Bamboo flowsheet Anahilouise Franco PA Work Phone: [facility] Start: 01-08-2025 End: 01-08-2025 Office outpatient visit 15 minutes Anahi Franco QUENTIN Work Phone: [facility] Comment on above: Melanocytic nevus of trunk (Primary Dx); Seborrheic keratosis; Inflamed seborrheic keratosis; Actinic keratosis; Capillary angioma; History of SCC (squamous cell carcinoma) of skin Start: 01-08-2025 End: 01-08-2025 ambulatory ANAHI FRANCO Not Available Start: 12-29-2024 End: 12-29-2024 ambulatory DORETHA HARRIS Not Available Start: 12-24-2024 End: 12-24-2024 Bamboo flowsheet Oziel Cadena MD Work Phone: [facility] Start: 12-24-2024 End: 12-24-2024 Bamboo flowsheet Oziel Cadena MD Work Phone: [facility] Start: 12-24-2024 End: 12-24-2024 Clinical Support Oziel Cadena MD Work Phone: [facility] Comment on above: Nerve root and plexu s disorder, unspecified (Primary Dx); Acute pain of left shoulder Start: 2024 End: 2024 Patient encounter procedure Griselda Kuns DO Work Phone: [facility] Start: 2024 End: 2024 ambulatory Griselda Kuns DO Work Phone: [facility] Work Phone: Start: 11-19-2024 End: 11-19-2024 ambulatory Griselda Kuns DO Work Phone: [facility] Work Phone: Start: 11-19-2024 End: 11-19-2024 Patient encounter procedure Griselda Kuns DO Work Phone: [facility] [place] Work Phone: Start: 11-17-2024 End: 11-17-2024 ambulatory Griselda Kuns DO Work Phone: [facility] Work Phone: Start: 11-17-2024 End: 11-17-2024 Patient encounter procedure Griselda Kuns DO Work Phone: [facility] Work Phone: Start: 11-12-2024 End: 11-12-2024 Bamboo flowsheet Oziel Cadena MD Work Phone: [facility] Start: 11-12-2024 End: 11-12-2024 Bamboo flowsheet Oziel Cadena MD Work Phone: [facility] Start: 11-12-2024 End: 11-12-2024 Clinical Support Oziel Cadena MD Work Phone: [facility] Comment on above: Nerve root and plexu s disorder, unspecified (Primary Dx); Acute pain of left shoulder Start: 11-07-2024 End: 11-07-2024 ambulatory RACQUEL COLE Facility:[facility] Start: 11-05-2024 Non-patient / Non-visit Griselda Kuns DO Work Phone: [facility] Work Phone: Start: 11-05-2024 End: 11-05-2024 Admission to same day surgery center Griselda Kuns DO Work Phone: [facility] Work Phone: Start: 11-05-2024 End: 11-05-2024 ambulatory Imad Asaad Facility:[facility] Start: 11-03-2024 End: 11-03-2024 Telephone encounter Racquel Cole MD Work Phone: Hematology/Oncology Comment on above: Orders Start: 11-03-2024 Non-patient / Non-visit Griselda Kuns DO Work Phone: [facility] Work Phone: Start: 11-03-2024 ambulatory RACQUEL COLE Raji y:[facility] Start: 11-03-2024 End: 11-03-2024 Subsequent hospital visit by physician Arrival Time Radiology Work Phone: Radiology [facility] Comment on above: 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] Start: 10-27-2024 End: 10-27-2024 ambulatory Griselda Kuns DO Work Phone: [facility] Work Phone: Start: 10-27-2024 End: 10-27-2024 Patient encounter procedure Griselda Kuns DO Work Phone: [facility] [address] Card[facility] Work Phone: Start: 10-21-2024 End: 10-21-2024 Subsequent hospital visit by physician Rad External Film EF [facility] EXTERNAL FILM [facility]IRTUAL Comment on above: Arrived Start: 10-21-2024 End: 10-21-2024 ambulatory [facility] Start: 10-13-2024 End: 10-13-2024 Office outpatient visit 40 minutes Doretha Harris MD Work Phone: [facility] Comment on above: Status post cervical spinal fusion (Primary Dx) Start: 10-13-2024 End: 10-13-2024 ambulatory [facility] Start: 10-10-2024 End: 10-10-2024 ambulatory Griselda Kuns DO Work Phone: [facility] Work Phone: Start: 10-10-2024 End: 10-10-2024 Patient encounter procedure Griselda Kuns DO Work Phone: [facility] Work Phone: Start: 10-10-2024 End: 10-10-2024 Patient encounter procedure Griselda Kuns DO Work Phone: [facility] [place] Work Phone: Start: 10-10-2024 End: 10-10-2024 ambulatory Griselda Kuns DO Work Phone: [facility] Work Phone: Start: 10-07-2024 End: 10-07-2024 Patient encounter procedure Griselda Kuns DO Work Phone: [facility] [place] Work Phone: Start: 10-07-2024 End: 10-07-2024 ambulatory Griselda Kuns DO Work Phone: [facility] Work Phone: Start: 10-06-2024 End: 10-06-2024 Emergency department patient visit Griselda Kuns DO Work Phone: [facility] Work Phone: Start: 09-22-2024 End: 09-22-2024 ambulatory Sarina Ramsey MD Facility:[facility] Start: 09-20-2024 End: 09-20-2024 Emergency department patient visit Griselda Kuns DO Work Phone: [facility] Work Phone: Start: 09-15-2024 End: 09-15-2024 ambulatory Sarina Ramsey MD Facility:[facility] Start: 09-11-2024 End: 09-11-2024 Bamboo flowsheet Oziel Cadena MD Work Phone: [facility] Start: 09-11-2024 End: 09-11-2024 Bamboo flowsheet Oziel Cadena MD Work Phone: [facility] Start: 09-11-2024 End: 09-11-2024 Clinical Support Oziel Cadena MD Work Phone: [facility] Comment on above: Nerve root and plexu s disorder, unspecified (Primary Dx) Start: 09-11-2024 End: 09-11-2024 Patient encounter procedure Griselda Kuns DO [facility] Work Phone: Start: 09-11-2024 End: 09-11-2024 ambulatory Griselda Kuns DO Work Phone: [facility] Work Phone: Start: 07-31-2024 End: 07-31-2024 Bamboo flowsheet Oziel Cadena MD Work Phone: [facility] Start: 07-31-2024 End: 07-31-2024 Bamboo flowsheet Oziel Cadena MD Work Phone: [facility] Start: 07-31-2024 End: 07-31-2024 Clinical Support Oziel Cadena MD Work Phone: [facility] Comment on above: Nerve root and plexu s disorder, unspecified (Primary Dx) Start: 07-28-2024 End: 07-28-2024 ambulatory [facility] Start: 07-07-2024 End: 07-07-2024 ambulatory Sarina Ramsey MD Facility: [facility] Start: 07-03-2024 End: 07-03-2024 ambulatory Griselda Kuns DO Work Phone: [facility] Work Phone: Start: 07-03-2024 End: 07-03-2024 Patient encounter procedure Griselda Kuns DO [facility] Phone[facility] [place] Work Phone: Start: 07-02-2024 End: 07-02-2024 Bamboo flowsheet Oziel Cadena MD Work Phone: [facility] Start: 07-02-2024 End: 07-02-2024 Bamboo flowsheet Oziel Cadena MD Work Phone: [facility] Start: 07-02-2024 End: 07-02-2024 Clinical Support Oziel Cadena MD Work Phone: [facility] Comment on above: Nerve root and plexu s disorder, unspecified (Primary Dx) Start: 06-30-2024 End: 06-30-2024 Postop follow up visit related to original px Doretha Harris MD Work Phone: [facility] Comment on above: Status post cervical spinal fusion (Primary Dx) Start: 06-30-2024 End: 06-30-2024 ambulatory [facility] Amb[facility] Start: 06-24-2024 End: 06-24-2024 Patient encounter procedure Griselda Kuns DO Work Phone: [facility] Work Phone: Start: 06-24-2024 End: 06-24-2024 ambulatory Griselda Kuns DO Work Phone: [facility] Work Phone: Start: 05-21-2024 End: 05-21-2024 Bamboo flowsheet Oziel Cadena MD Work Phone: [facility] Start: 05-21-2024 End: 05-21-2024 Bamboo flowsheet Oziel Cadena MD Work Phone: [facility] Start: 05-21-2024 End: 05-21-2024 Clinical Support Oziel Cadena MD Work Phone: [facility] Comment on above: Other nerve root and plexus disorders (Primary Dx); Cervical paraspinal muscle spasm; Cervical stenosis of spinal canal Start: 04-30-2024 End: 04-30-2024 Postop follow up visit related to original px Solomon Narayanan PA-C Work Phone: [facility] Comment on above: Cervical radiculopat hy (Primary Dx); Status post cervical spinal fusion; Acute postoperative pain; Muscle spasms of neck Start: 04-30-2024 End: 04-30-2024 ambulatory [facility] Ambulatory Start: 04-28-2024 End: 04-28-2024 ambulatory [facility] Work Phone: Start: 04-28-2024 End: 04-28-2024 Patient encounter procedure [facility] Work Phone: Start: 04-09-2024 End: 04-10-2024 ambulatory [facility] Start: 04-09-2024 End: 04-10-2024 Evaluation and management of inpatient Doretha Harris MD Work Phone: [facility] Kassandra Thornton 4 Comment on above: Cervical radiculopat hy (Primary Dx); Senile osteoporosis Start: 04-01-2024 End: 04-01-2024 [facility] Work Phone: Start: 04-01-2024 End: 04-01-2024 Patient encounter procedure [facility] [place] Work Phone: Start: 03-31-2024 End: 03-31-2024 Subsequent hospital visit by physician Rad External Film EF RAD EXTERNAL FILM VIRTUAL Comment on above: Arrived Start: 03-31-2024 End: 03-31-2024 ambulatory [facility] Start: 03-26-2024 End: 03-26-2024 ambulatory [facility] Start: 03-19-2024 End: 03-19-2024 [facility] Start: 02-13-2024 End: 02-13-2024 Subsequent hospital visit by physician [facility] 1 [facility] Comment on above: Cervical radiculopat hy Start: 02-13-2024 End: 02-13-2024 ambulatory [facility] Start: 02-13-2024 End: 02-13-2024 ambulatory [facility] Start: 02-11-2024 End: 02-12-2024 ambulatory DORETHA HARRIS [facility] Start: 02-11-2024 End: 02-11-2024 ambulatory DORETHA HARRIS [facility] Start: 02-11-2024 End: 02-11-2024 Subsequent hospital visit by physician Daniel [id number] Cr [id number] Holter/Ecg Resource [facility] Comment on above: Cervical radiculopat hy; Senile osteoporosis Start: 02-04-2024 End: 02-04-2024 ambulatory GRISELDA R [facility] Start: 01-31-2024 End: 01-31-2024 ambulatory [facility] Work Phone: Start: 01-31-2024 End: 01-31-2024 Patient encounter procedure [facility] [place] Work Phone: Start: 01-03-2024 End: 01-03-2024 Office outpatient new 60 minutes Doretha Harris MD Work Phone: [facility] Comment on above: Cervical radiculopat hy (Primary Dx); Senile osteoporosis Start: 12-13-2023 End: 12-13-2023 Office outpatient visit 40 minutes Helder Jack MD Work Phone: [facility] 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) Start: 12-13-2023 End: 12-13-2023 ambulatory HELDER JACK [facility] Start: 12-13-2023 End: 12-13-2023 Subsequent hospital visit by physician Daniel Mri 1 [facility] 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) Start: 12-13-2023 End: 12-13-2023 ambulatory SHIMON HEATON [facility] Start: 12-12-2023 End: 12-12-2023 Office outpatient new 45 minutes Solomon Narayanan PA-C Work Phone: [facility] Comment on above: Cervical radiculopat hy (Primary Dx); Occipital neuralgia of left side; Balance problem Start: 12-03-2023 End: 12-03-2023 ambulatory DO Griselda Kuns Work Phone: [facility] Work Phone: Start: 12-03-2023 End: 12-03-2023 Patient encounter procedure DO Griselda Kuns Work Phone: [facility] Work Phone: Start: 11-02-2023 End: 11-02-2023 Office outpatient visit 25 minutes Racquel Cole MD Work Phone: Hematology/Oncology Comment on above: 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) Start: 10-29-2023 End: 10-29-2023 ambulatory DO Griselda Kuns Work Phone: [facility] Work Phone: Start: 10-29-2023 End: 10-29-2023 Patient encounter procedure DO Griselda Kuns Work Phone: [facility] Work Phone: Start: 10-26-2023 Non-patient / Non-visit DO Katy tt Kuns Work Phone: [facility] Work Phone: Start: 10-26-2023 End: 10-26-2023 Subsequent hospital visit by physician Arrival Time Radiology Work Phone: Radiology [facility] Comment on above: 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] Start: 10-18-2023 End: 10-18-2023 Patient encounter procedure DO Griselda Kuns Work Phone: [facility] Work Phone: Start: 10-09-2023 End: 10-09-2023 ambulatory DO Griselda Kuns Work Phone: [facility] Work Phone: Start: 10-09-2023 End: 10-09-2023 Patient encounter procedure DO Griselda Kuns Work Phone: [facility] [place] Work Phone: Start: 10-05-2023 End: 10-05-2023 Office outpatient new 60 minutes Helder Jack MD Work Phone: [facility] Comment on above: Brainstem lesion (Pr imary Dx); Pontine glioma (Multi) Start: 09-19-2023 End: 09-19-2023 Subsequent hospital visit by physician Rad External Film EF RAD EXTERNAL FILM VIRTUAL Comment on above: Arrived Start: 09-05-2023 End: 09-05-2023 ambulatory DO Griselda Kuns Work Phone: [facility] Work Phone: Start: 09-05-2023 End: 09-05-2023 Patient encounter procedure DO Griselda Kuns Work Phone: [facility] Work Phone: Start: 09-05-2023 End: 09-05-2023 ambulatory DO Griselda Kuns Work Phone: [facility] Work Phone: Start: 09-05-2023 End: 09-05-2023 Patient encounter procedure DO Griselda Kuns Work Phone: [facility] Work Phone: Start: 08-15-2023 End: 08-15-2023 Patient encounter procedure DO Griselda Kuns Work Phone: [facility] [place] Work Phone: Start: 08-02-2023 End: 08-02-2023 ambulatory DO Griselda Kuns Work Phone: [facility] Work Phone: Start: 08-02-2023 End: 08-02-2023 Patient encounter procedure DO Griselda Kuns Work Phone: [facility] [place] Work Phone: Start: 07-26-2023 Chart abstracting Nikole Mota [employer] Work Phone: [facility] Start: 07-19-2023 Bamboo flowsheet Nikole Mota [employer] Work Phone: [facility] Start: 07-19-2023 Bamboo flowsheet Nikole Mota [employer] Work Phone: [facility] Start: 07-18-2023 End: 07-21-[address] [facility] Start: 07-02-2023 End: 07-02-2023 ambulatory Griselda Kuns Other [employer] Other Start: 07-02-2023 Office outpatient vi sit 25 minutes Griselda Kuns [facility] [place] Start: 07-02-2023 End: 07-02-2023 Patient encounter procedure DO Griselda Kuns Work Phone: [facility] [place] Work Phone: Start: 05-31-2023 End: 05-31-2023 ambulatory Griselda Kuns Other [employer] Other Start: 05-31-2023 Office outpatient vi sit 25 minutes Griselda Kuns [facility] [place] Start: 05-30-2023 Office outpatient vi sit 15 minutes Ruddy Harvey [facility] Vascular Surgery Start: 05-30-2023 End: 05-30-2023 ambulatory DO Griselda Kuns Work Phone: [employer] Other Start: 05-30-2023 End: 05-31-2023 Patient encounter procedure DO Griselda Kuns Work Phone: [facility]Ul[facility]ound [facility] Start: 05-30-2023 End: 05-30-2023 Patient encounter procedure DO Griselda Kuns Work Phone: [facility] Vascular Surgery Work Phone: Start: 05-15-2023 End: 05-15-2023 ambulatory Lilliam Cason Other [facility] [employer] Other Start: 05-15-2023 Office outpatient vi sit 25 minutes Lilliam Cason [facility] Start: 05-15-2023 Telephone encounter Lilliam Cason [facility] Start: 05-15-2023 End: 05-15-2023 Patient encounter procedure DO Griselda Kuns Work Phone: [facility] Cardiology Work Phone: Start: 05-07-2023 End: 05-07-2023 Admission to same day surgery center DO Griselda Kuns Work Phone: [facility]-Interventional Radiology Work Phone: Start: 05-07-2023 End: 05-07-2023 ambulatory DO Griselda Kuns Work Phone: [facility] Work Phone: Start: 05-04-2023 End: 05-04-2023 ambulatory DO Griselda Kuns Work Phone: [facility] Work Phone: Start: 05-04-2023 End: 05-04-2023 Patient encounter procedure DO Griselda Kuns Work Phone: [facility] [place] Work Phone: Start: 05-03-2023 End: 05-03-2023 ambulatory Ruddy Harvey Other [facility] [employer] Other Start: 05-03-2023 Office outpatient ne w 45 minutes Ruddy Harvey [facility] Vascular Surgery Start: 05-03-2023 Telephone encounter Ruddy Bond rg [facility] Start: 05-01-2023 End: 05-01-2023 ambulatory Griselda Kuns Other [employer] Other Start: 05-01-2023 Office outpatient vi sit 25 minutes Griselda Kuns [facility] [place] Start: 04-25-2023 End: 04-25-2023 ambulatory DO Griselda Kuns Work Phone: [facility] Work Phone: Start: 04-25-2023 End: 04-25-2023 Patient encounter procedure DO Griselda Kuns Work Phone: [facility] [place] Work Phone: Start: 04-12-2023 End: 04-12-2023 ambulatory Lilliam Kamla Other [employer] Other Start: 04-12-2023 Telephone encounter Lilliam Cason [facility] Start: 04-11-2023 End: 04-11-2023 ambulatory Lilliam Kamla Other [employer] Other Start: 04-11-2023 Office outpatient ne w 45 minutes Lilliam Kamla [facility] Start: 04-10-2023 End: 04-10-2023 ambulatory Griselda Kuns Other [employer] Other Start: 04-10-2023 Telephone encounter Griselda Kuns [facility] [place] Start: 03-30-2023 End: 03-30-2023 ambulatory DO Griselda Kuns Work Phone: [facility] Work Phone: Start: 03-30-2023 End: 03-30-2023 Patient encounter procedure DO Griselda Kuns Work Phone: [facility] [place] Work Phone: Start: 03-21-2023 End: 03-21-2023 Emergency department patient visit DO Griselda Kuns Work Phone: [facility]Emergency Room Work Phone: Start: 03-15-2023 End: 03-15-2023 ambulatory Griselda Kuns Other [employer] Other Start: 03-15-2023 Office outpatient vi sit 25 minutes Griselda Kuns [facility] Start: 03-08-2023 End: 03-08-2023 ambulatory Griselda Kuns Other [employer] Other Start: 03-08-2023 Office outpatient vi sit 25 minutes Griselda Kuns [facility] Start: 02-26-2023 End: 02-26-2023 Emergency department patient visit DO Griselda Kuns Work Phone: [facility] Work Phone: Start: 12-28-[address] BRET HDEZ [facility] ity:UNKNOWN Start: 12-05-2022 End: 12-05-2022 ambulatory Griselda Kuns Other [employer] Other Start: 12-05-2022 Office outpatient vi sit 25 minutes Griselda Kuns [facility] Start: 11-15-2022 End: 11-15-2022 ambulatory DO Griselda Kuns Work Phone: [facility] Work Phone: Start: 11-15-2022 End: 11-15-2022 Patient encounter procedure DO Griselda Kuns Work Phone: [facility] [address] Work Phone: Start: 10-27-2022 End: 10-27-2022 Subsequent hospital visit by physician Arrival Time Radiology Work Phone: Radiology [facility] Comment on above: Malignant neoplasm o f head, 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] Start: 10-24-2022 End: 10-24-2022 ambulatory DO Griselda Kuns Work Phone: [facility] Work Phone: Start: 10-24-2022 End: 10-24-2022 Patient encounter procedure DO Griselda Kuns Work Phone: [facility]-Lab [place] Work Phone: Start: 09-28-2022 End: 09-28-2022 ambulatory FLORES R EMORY Facility:[facility] Start: 09-22-2022 End: 09-22-2022 Subsequent hospital visit by physician Jonelle Hernandez (I-Stat/3t) Work Phone: Radiology Comment on above: 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] Start: 09-18-2022 Telephone encounter Kelly ghosh PA-C Work Phone: [facility] Comment on above: Patient Question Start: 09-13-2022 End: 09-13-2022 Patient encounter procedure Kelly Perez PA-C Work Phone: [facility] Comment on above: NPH (normal pressure hydrocephalus) (HCC) (Primary Dx) Start: 08-31-2022 End: 08-31-2022 ambulatory Griselda Kuns Other [employer] Other Start: 08-31-2022 Office outpatient vi sit 25 minutes Griselda Kuns [facility] Start: 08-01-2022 End: 08-01-2022 ambulatory Griselda Kuns Other [employer] Other Start: 08-01-2022 Office outpatient vi sit 25 minutes Griselda Kuns [facility] Start: 07-17-2022 End: 07-17-2022 ambulatory DO Griselda Kuns Work Phone: [facility] Work Phone: Start: 07-17-2022 End: 07-17-2022 Patient encounter procedure DO Griselda Kuns Work Phone: [facility]XRay [facility] [place] Work Phone: Start: 07-14-2022 End: 07-14-2022 Patient encounter procedure DO Griselda Kuns Work Phone: [facility]CT [facility] [place] Work Phone: Start: 06-28-2022 End: 06-28-2022 ambulatory Trish Blades Other [employer] Other Start: 06-28-2022 Office outpatient ne w 45 minutes Trish Blades [facility] Neurosurgery Start: 05-26-2022 End: 05-26-2022 ambulatory Griselda Kuns Other [employer] Other Start: 05-26-2022 Office outpatient vi sit 25 minutes Griselda Kuns [facility] [place] Start: 05-17-2022 End: 05-17-2022 ambulatory DO Griselda Kuns Work Phone: [facility] Work Phone: Start: 05-17-2022 End: 05-17-2022 Discharged Recurring DO Griselda Kuns Work Phone: [facility] Therapy [address] Start: 04-27-2022 Registered Recurring DO Griselda Kuns Work Phone: [facility]-Physical Therapy [address] Start: 04-16-2022 End: 04-17-2022 Emergency department patient visit DO Griselda Kuns Work Phone: [facility]gency [facility] Start: 04-10-2022 End: 04-10-2022 ambulatory Griselda Kuns Other [employer] Other Start: 04-10-2022 Telephone encounter Griselda Kuns [facility] [place] Start: 04-06-2022 End: 04-06-2022 Emergency department patient visit DO Griselda Kuns Work Phone: [facility]Emergency [facility] Start: 03-27-2022 Telephone encounter Asya Reynolds RN Hematology/Oncology Comment on above: Appointment Start: 03-22-2022 End: 03-22-2022 ambulatory Griselda Kuns Other [employer] Other Start: 03-22-2022 Telephone encounter [facility] Start: 03-16-2022 End: 03-16-2022 ambulatory Griselda Kuns Other [employer] Other Start: 03-16-2022 Office outpatient vi sit 25 minutes Griselda Kuns [facility] Start: 03-16-2022 Telephone encounter Self [facility] Comment on above: Triage (Internal Ref erral--old) Start: 03-09-2022 End: 03-09-2022 ambulatory Griselda Kuns Other [employer] Other Start: 03-09-2022 Telephone encounter [facility] Start: 03-07-2022 End: 03-07-2022 ambulatory Griselda Kuns Other [employer] Other Start: 03-07-2022 Telephone encounter Griselda Kuns [facility] [place] Start: 03-03-2022 Telephone encounter Griselda Kuns [facility] [place] Start: 03-03-2022 End: 03-03-2022 ambulatory DO Griselda Kuns Work Phone: [employer] Other Start: 03-03-2022 End: 03-03-2022 Discharged Recurring DO Griselda Kuns Work Phone: [facility]Physical Therapy [address] Start: 03-03-2022 Registered Recurring DO Griselda Kuns Work Phone: [facility]-Physical [facility] Start: 02-07-2022 End: 02-07-2022 ambulatory Griselda Kuns Other [employer] Other Start: 02-07-2022 Telephone encounter Griselda Kuns [facility] Medicine [place] Start: 01-30-2022 End: 01-30-2022 ambulatory Griselda Kuns Other [employer] Other Start: 01-30-2022 Office outpatient vi sit 25 minutes Griselda Kuns [facility] [place] Start: 01-12-2022 End: 01-12-2022 ambulatory Griselda Kuns Other [employer] Other Start: 01-12-2022 Telephone encounter Griselda Kuns [facility] [place] Start: 12-26-2021 End: 12-26-2021 ambulatory Griselda Kuns Other [employer] Other Start: 12-26-2021 Office outpatient vi sit 25 minutes Griselda Kuns [facility] [place] Start: 12-23-2021 End: 12-23-2021 ambulatory Griselda Kuns Other [employer] Other Start: 12-23-2021 Telephone encounter Griselda Kuns [facility] [place] Start: 12-05-2021 End: 12-05-2021 ambulatory Griselda Kuns Other [employer] Other Start: 12-05-2021 Office outpatient vi sit 25 minutes Griselda Kuns [facility] [place] Start: 12-05-2021 Telephone encounter Griselda Kuns [facility] [place] Start: 11-22-2021 End: 11-22-2021 ambulatory Griselda Kuns Other [employer] Other Start: 11-22-2021 Telephone encounter Griselda Kuns [facility] Start: 11-21-2021 Office outpatient vi sit 15 minutes Griselda R Kuns Work Phone: [facility] Work Phone: Start: 11-09-2021 End: 11-09-2021 ambulatory Griselda Kuns Other [employer] Other Start: 11-09-2021 Telephone encounter Griselda Kuns [facility] Start: 11-08-2021 End: 11-08-2021 ambulatory Griselda Kuns Other [employer] Other Start: 11-08-2021 Office outpatient vi sit 25 minutes Griselda Kuns [facility] Start: 11-03-2021 Office consultation new/estab patient 60 min Griselda R Kuns Work Phone: 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) Start: 10-13-2021 End: 10-13-2021 Patient encounter procedure Racquel Cole MD Work Phone: [place] Start: 10-06-2021 End: 10-06-2021 ambulatory Griselda Hastings Other [employer] Other Start: 10-06-2021 Telephone encounter Asya Kumar RN Hematology/Oncology Comment on above: Results Start: 10-06-2021 End: 10-06-2021 Subsequent hospital visit by physician Arrival Time Radiology Work Phone: Radiology [facility] Comment on above: Malignant neoplasm o f head, 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] Start: 09-29-2021 End: 09-29-2021 ambulatory Griselda Hastings Other [employer] Other Start: 09-29-2021 Telephone encounter Griselda Hastings [facility] Start: 09-27-2021 End: 09-27-2021 ambulatory Griselda Hastings Other [employer] Other Start: 09-27-2021 Telephone encounter Griselda Kuns [facility] Start: 09-19-2021 End: 09-19-2021 ambulatory Griselda Kuns Other [employer] Other Start: 09-19-2021 Office outpatient vi sit 25 minutes Griselda Kuns [facility] [place] Start: 09-12-2021 End: 09-12-2021 ambulatory Griselda Kuns Other [employer] Other Start: 09-12-2021 Telephone encounter Griselda Kuns [facility] [place] Start: 09-08-2021 End: 09-08-2021 ambulatory Griselda Kuns Other [employer] Other Start: 09-08-2021 Telephone encounter Griselda Kuns [facility] [place] Start: 06-30-2021 End: 06-30-2021 ambulatory Griselda Kuns Other [employer] Other Start: 06-30-2021 Office outpatient vi sit 15 minutes Griselda Kuns [facility] [place] Start: 06-30-2021 Telephone encounter Griselda Kuns [facility] [place] Start: 06-29-2021 End: 06-29-2021 ambulatory Griselda Kuns Other [employer] Other Start: 06-29-2021 Nursing evaluation o f patient and report Griselda Kuns [facility] [place] Start: 04-19-2021 End: 04-19-2021 ambulatory Griselda Kuns Other [employer] Other Start: 04-19-2021 Nursing evaluation o f patient and report Griselda Kuns [facility] [place] Start: 04-19-2021 Telephone encounter Griselda Kuns [facility] [place] Start: 04-14-2021 Office outpatient vi sit 15 minutes Griselda Kuns [facility] [place] Start: 10-01-2020 End: 10-01-2020 Patient encounter procedure Griselda Hastings Work Phone: -Electrodiagnostics Start: 09-20-2020 End: 09-20-2020 Patient encounter procedure Griselda Hastings -Lab [facility] Start: 09-13-2020 End: 09-13-2020 Patient encounter procedure Griselda Hastings -XRay [facility] Procedures Date Procedure Procedure Detail Performing Clinician Start: 01-08-2025 End: 01-08-2025 CRYOTHERAPY SKIN LESION Anahi Soni Work Phone: Start: 2024 Plain chest X-ray Griselda Hastings DO Work Phone: Start: 11-19-2024 Quick Strep (POC) Griselda Hastings DO Work Phone: Start: 11-19-2024 RSV (POC) Griselda Hastings DO Work Phone: Start: 11-05-2024 Esophagogastroduodenoscopy Griselda Hastings DO Work Phone: Start: 11-03-2024 Ct soft tissue neck w/contrast material Racquel Cole MD Work Phone: Start: 11-03-2024 Ct thorax w/contrast material Racquel kapoor MD Work Phone: Start: 11-03-2024 Blood count complete auto&auto difrntl wbc Elizabeth Hagan PA-C Work Phone: Start: 10-21-2024 Study Interpretation of outside study Doretha Harris MD Work Phone: Start: 10-10-2024 X-ray of cervical spine Griselda Hastings DO Work Phone: Start: 10-06-2024 Computed tomography of abdomen and pelvis with contrast Griselda Hastings DO Work Phone: Start: 10-06-2024 CT of soft tissues of neck with contrast Griselda Hastings DO Work Phone: Start: 09-20-2024 Respiratory Panel (PCR) Griselda Hastings DO Work Phone: Start: 09-20-2024 Plain chest X-ray Griselda Hastings DO Work Phone: Start: 09-11-2024 Ankle brachial [...] Phone: Start: 10-09-2023 Respiratory Panel (PCR) DO [employer] Work Phone: Start: 10-09-2023 Plain chest X-ray DO [employer] Work Phone: Start: 09-19-2023 Study Interpretation of outside study Ayah Gross MD Work Phone: Start: 09-05-2023 Ankle brachial pressure index DO [employer] Work Phone: Start: 05-07-2023 Lower limb angiography DO [employer] Work Phone: Start: 05-04-2023 CT angiography of head DO [employer] Work Phone: Start: 05-04-2023 CT angiography of neck vessels DO [employer] Work Phone: Start: 04-25-2023 Pulse volume recorder pneumoplethysmography DO [employer] Work Phone: Start: 02-26-2023 SARS Antigen (LFIA) DO [employer] Work Phone: Start: 11-15-2022 MR lumbar spine wo con DO [employer] Work Phone: Start: 11-15-2022 XR pre/post mri xray DO [employer] Work Phone: Start: 10-27-2022 Ct thorax w/contrast material Racquel kapoor MD Work Phone: Start: 10-27-2022 Ct soft tissue neck w/contrast material Racquel Cole MD Work Phone: Start: 10-27-2022 Blood count complete auto&auto difrntl wbc Racquel Cole MD Work Phone: Start: 09-22-2022 Mri brain brain stem w/o w/contrast material Kelly Perez PA-C Work Phone: Start: 07-14-2022 CT of head without contrast DO Griselda Andrea s Work Phone: Start: 04-16-2022 Plain chest X-ray DO Griselda Kuns Work Phone: Start: 04-06-2022 CT cervical spine without contrast DO Br ett Kuns Work Phone: Start: 10-13-2021 Adult depression screening [...] RN Start: 09-13-2020 Plain chest X-ray Griselda Kuns Excision of melanoma Griselda R Darling Work Phone: Plan of Treatment Date Care Activity Detail Author Start: 2037 RSV Vaccine (1 - 1-dose 75+ series) RSV Vaccine (1 - 1-dose 75+ series) [facility] Start: 04-10-2027 Diabetes Screening Diabetes Screening [facility] Start: 10-25-2026 Diabetes Screening Diabetes Screening [facility] Start: 02-12-2026 Screening for osteoporosis Bone Density Scan [facility] Start: 01-08-2026 End: 01-08-2026 Patient encounter procedure TRENT ZEE Start: 04-30-2025 End: 04-30-2025 Clinical Support 04/30/2025 2:00 PM EST Clinical Support [facility] [address] [facility] [address] [place] [id number] Oziel Cadena MD [address] [facility] [address] [place] [address] [place] [id number] [facility] [place] [facility] Start: 04-06-2025 End: 04-06-2025 Patient encounter procedure 04/06/2025 9:30 AM EDT Office Visit [facility] [address] [facility] [address] [place] [id number] Doretha Harris MD [address] [place] [address] [facility] Start: 03-18-2025 End: 03-18-2025 Clinical Support 03/18/2025 2:20 PM EDT Clinical Support [facility] [address] [place] [address] [place] [id number] Oziel Cadena MD [address] [facility] [address] [place] [address] [place] [id number] [facility] Start: 03-18-2025 End: 03-18-2025 Clinical Support 03/18/2025 11:30 AM EDT Clinical Support [facility] [address] [facility] [address] [place] [address] Oziel Cadena MD [address] [facility] [address] [place] [address] [place] [id number] Arrived [facility] Comment on above: Arrived Start: 02-26-2025 Ankle brachial pressure index [facility] Start: 02-16-2025 Influenza vaccination [facility] Start: 02-04-2025 End: 02-04-2025 Clinical Support [facility] Comment on above: Arrived Start: 01-08-2025 End: 01-08-2025 Patient encounter procedure [facility] M Comment on above: Arrived Start: 01-01-2025 End: 01-01-2025 Patient encounter procedure 01/01/2025 10:30 AM EDT Office Visit [facility] [address] [place] [address] Anahi Franco PA [address] [place] [address] [facility] Start: 12-24-2024 End: 12-24-2024 Clinical Support [facility] Comment on above: Arrived Start: 11-12-2024 End: 11-12-2024 Clinical Support [facility] Comment on above: Arrived Start: 11-07-2024 End: 11-07-2024 Follow-up encounter Hematology/Oncolog y Comment on above: [address] and lab Start: 11-05-2024 [facility] Start: 11-03-2024 End: 02-02-2025 Comprehensive metabolic 2000 panel - Serum or Plasma COMPREHENSIVE METABOLIC PANEL Lab Routine 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) Expected: 11/03/2024 (Approximate), Expires: 02/02/2025 [facility] Work Phone: Comment on above: Expected: 11/03/2024 (Approximate), Expi res: 02/02/2025 Start: 11-03-2024 End: 11-03-2024 Patient encounter procedure 11/03/2024 9:00 AM EDT Appointment Radiology Pet CT [address] [place] [address] [place] [address] Ct Chest and neck with contrast and lab Radiology Pet CT Comment on above: Ct Chest and neck with contrast and lab Start: 11-01-2024 End: 11-01-2024 CBC W Auto Differential panel - Blood COMPLETE BLOOD COUNT AND DIFFERENTIAL Lab Routine 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) Expected: 11/01/2024 (Approximate), Expires: 11/01/2024 [facility] Comment on above: Expected: 11/01/2024 (Approximate), Expi res: 11/01/2024 Start: 11-01-2024 End: 11-01-2024 Comprehensive metabolic 2000 panel - Serum or Plasma COMPREHENSIVE METABOLIC PANEL Lab Routine 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) Expected: 11/01/2024 (Approximate), Expires: 11/01/2024 [facility] Comment on above: Expected: 11/01/2024 (Approximate), Expi res: 11/01/2024 Start: 11-01-2024 End: 12-01-2024 CT Chest W contrast IV CT CHEST W IVCON Radiology Routine 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) Expected: 11/01/2024 (Approximate), Expires: 12/01/2024 [facility] Comment on above: Expected: 11/01/2024 (Approximate), Expi res: 12/01/2024 Start: 11-01-2024 End: 12-01-2024 CT Neck W contrast IV CT NECK SOFT TISSUE W IVCON Radiology Routine 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) Expected: 11/01/2024 (Approximate), Expires: 12/01/2024 [facility] Work Phone: Comment on above: Expected: 11/01/2024 (Approximate), Expi res: 12/01/2024 Start: 10-10-2024 X-ray of cervical spine XR cervical spine 2V [facility] Start: 10-10-2024 XR Cervical spine 2 Views [facility] Start: 10-06-2024 DIABETES SCREEN DIABETES SCREEN [facility] Start: 09-29-2024 End: 09-29-2024 Patient encounter procedure 09/29/2024 11:00 AM EDT Office Visit [facility] [address] [facility] [address] [place] [address] Doretha Harris MD [address] [facility] [place] [address] [facility] Start: 09-11-2024 End: 09-11-2024 Clinical Support 09/11/2024 10:40 AM EDT Clinical Support [facility] [address] [facility] [address] [place] [address] Oziel Cadena MD [address] [facility] [address] [address], [place] [address] [facility] Start: 09-11-2024 Ankle brachial pressure index US ankle/arm indices [facility] Start: 07-31-2024 End: 07-31-2024 Clinical Support [facility] Comment on above: Arrived Start: 07-02-2024 End: 07-02-2024 Clinical Support [facility] Comment on above: Arrived Start: 06-30-2024 End: 06-30-2025 XR Cervical spine 2 or 3 Views XR cervical spine 2-3 views Imaging Routine Status post cervical spinal fusion Expected: 06/30/2024, Expires: 06/30/2025 [facility] Service Area Work Phone: Comment on above: Expected: 06/30/2024, Expires: Start: 06-30-2024 End: 06-30-2024 Patient encounter procedure [facility] Start: 05-21-2024 End: 05-21-2024 Clinical Support 05/21/2024 2:00 PM EST Clinical Support [facility] [address] [facility] [address] [place] [id number] Oziel Cadena MD [address] [facility] [address] [place] [address] [place] [id number] Arrived [facility] Comment on above: Arrived Start: 05-16-2024 End: 05-16-2024 Patient encounter procedure 05/16/2024 9:15 AM EST Office Visit [facility] [address] [facility] [address] [place] [address] Doretha Harris MD [address] [facility] [place] [address] [place] [address] [facility] Start: 05-02-2024 End: 05-02-2024 Patient encounter procedure [facility] Start: 04-30-2024 End: 04-30-2025 XR Cervical spine 2 or 3 Views XR cervical spine 2-3 views Imaging Routine Cervical radiculopathy Status post cervical spinal fusion Expected: 04/30/2024, Expires: 04/30/2025 [facility] Service Area Work Phone: Comment on above: Expected: 04/30/2024, Expires: Start: 04-30-2024 End: 04-30-2024 Patient encounter procedure 04/30/2024 1:00 PM EST Office Visit [facility] [address] [facility] [address] [place] [phone] Solomon Narayanan PA-C [address] [place], [place] [id number] [facility] Start: 04-09-2024 End: 04-09-2024 Admission to same day surgery center 04/09/2024 7:45 AM EDT - 04/09/2024 12:25 PM EDT [place] [address] [place] [phone] Doretha Harris MD [address] [facility], [address] [place] [address] Fusion Spine Anterior Cervical and Discectomy C5-6, C6-7 [59798 (CPT )] [facility] [place] Comment on above: Fusion Spine Anterior Cervical and Disce ctomy C5-6, C6-7 [90212 (CPT )] Start: 04-09-2024 End: 04-09-2024 Arthrd ant interbody decompress cervical belw c2 Fusion Spine Anterior Cervical and Discectomy Cervical radiculopathy Senile osteoporosis 04/09/2024 7:45 AM EDT Virtual [facility] [place] Start: 04-09-2024 Subsequent hospital visit by physician 04/09/2024 7:45 AM EDT Hospital [place] [address] [place] [address] Doretha Harris MD [address] [facility], [address] [place] [address] [facility] [place] Start: 03-15-2024 DTaP/Tdap/Td Vaccines (2 - Td or Tdap) DTaP/Tdap/Td Vaccines (2 - Td or Tdap) [facility] Start: 03-15-2024 Urine microalbumin profile DTaP,Tdap,Td Vaccine (2 - Td or Tdap) [facility] Start: 03-11-2024 End: 03-11-2024 Patient encounter procedure 03/11/2024 11:30 AM EDT Office Visit [facility] [address] [place] [address] Solomon Narayanan PA-C [address] [place] [phone] [facility] Start: 03-03-2024 Influenza vaccination Influenza Vaccine (#1) [facility] Comment on above: Postponed from 02/16/2023 (Patient Refus ed) Start: 02-27-2024 End: 02-27-2024 Admission to same day surgery center [facility] [place] Comment on above: Anterior Cervical Discectomy and Fusion C5-6, C6-7 [86390 (CPT )] Start: 02-27-2024 End: 02-27-2024 Arthrd ant interbody decompress cervical belw c2 Virtual [facility] [place] Start: 02-27-2024 Subsequent hospital visit by physician [facility] [place] Start: 02-17-2024 COVID-19 Vaccine ( season) COVID-19 Vaccine ( season) [facility] Start: 02-17-2024 Covid-19 Vaccine () Covid-19 Vaccine () [facility] Start: 02-17-2024 Covid-19 Vaccine ( season) Covid-19 Vaccine ( season) [facility] Start: 02-17-2024 Influenza vaccination [facility] Start: 02-15-2024 End: 02-15-2024 Patient encounter procedure 02/15/2024 9:00 AM EDT Office Visit [address] Linda [address] [phone] Vincenzo Sanchez MD [address] [place] [address] Dr Linda [address], [address] [address] [facility] Start: 02-13-2024 End: 02-13-2024 Patient encounter procedure 02/13/2024 11:00 AM EDT Appointment [facility] [address] [place] [address] [facility] Start: 02-03-2024 End: 01-02-2025 Nicotine and Metabolites,S Nicotine and Metabolites,S Lab Routine Cervical radiculopathy Senile osteoporosis Expected: 02/03/2024 (Approximate), Expires: 01/02/2025 [facility] Work Phone: Comment on above: Expected: 02/03/2024 (Approximate), Expi res: 01/02/2025 Start: 01-03-2024 End: 01-02-2025 DXA Skeletal system.axial Views for bone density XR DEXA bone density axial skeleton w VFA Imaging Routine Senile osteoporosis Expected: 01/03/2024, Expires: 01/02/2025 [facility] Service Area Work Phone: Comment on above: Expected: 01/03/2024, Expires: Start: 01-03-2024 End: 01-02-2025 XR Cervical spine 6 Views XR cervical spine complete 6+ views Imaging Routine Cervical radiculopathy Expected: 01/03/2024, Expires: 01/02/2025 [facility] Work Phone: Comment on above: Expected: 01/03/2024, Expires: Start: 01-03-2024 End: 01-03-2024 Patient encounter procedure 01/03/2024 1:30 PM EDT Office Visit [facility] [address] [place] [address] Doretha Harris MD [address] [facility], [facility] [address] [place] [address] [facility] Start: 12-13-2023 End: 12-12-2024 MR Brain WO and W contrast IV MR brain w and wo IV contrast Imaging Routine Pontine glioma (Multi) Expected: 12/13/2023 (Approximate), Expires: 12/12/2024 [facility] Service Area Work Phone: Comment on above: Expected: 12/13/2023 (Approximate), Expi res: 12/12/2024 Start: 12-13-2023 End: 12-13-2023 Patient encounter procedure [facility] Start: 09-28-2023 End: 09-28-2023 Patient encounter procedure 09/28/2023 10:15 AM EDT Office Visit [facility] [address] [facility] 1st [place] [phone] [place] [address] [facility] [place] [address] [facility] Start: 09-05-2023 Ankle brachial pressure index [facility] Start: 08-30-2023 End: 08-30-2023 Patient encounter procedure 08/30/2023 9:40 AM EDT Office Visit [facility] [address] [place] [address] Nikole Mota, [employer] [address] [place] [address] [facility] Start: 07-26-2023 End: 07-26-2023 Patient encounter procedure 07/26/2023 1:30 PM EST Procedure Visit [facility] [address] [address] Nikole Mota [employer] [address] [address] [facility] [address] Start: 07-19-2023 End: 07-19-2023 Clinical Support 07/19/2023 1:30 PM EST Clinical Support [facility] [address] [facility] [address] [place] [address] Nikole Mota [employer] [address] [place] [address], [place] [address] Cervical dystonia [facility] Comment on above: Cervical dystonia Start: 06-18-2023 Behavioral Health Screening Behavioral Health Screening [facility] Start: 05-07-2023 Pulse volume recorder pneumoplethysmography US arterial pvr rest [facility] Start: 05-07-2023 [facility] Start: 05-07-2023 [facility] Start: 04-25-2023 Pulse volume recorder pneumoplethysmography US arterial pvr rest [facility] Start: 02-16-2023 COVID-19 Vaccine ( season) COVID-19 Vaccine ( season) [facility] Start: 02-16-2023 Influenza vaccination INFLUENZA (Season Ended) [facility] Start: 2022 RSV High Risk: (Elderly (60+) or Population) (1 - Risk 60-74 years 1-dose series) RSV High Risk: (Elderly (60+) or Population) (1 - Risk 60-74 years 1-dose series) [facility] Start: 2022 RSV patients and/or patients aged 60+ years (1 - 1-dose 60+ series) RSV patients and/or patients aged 60+ years (1 - 1-dose 60+ series) [facility] Start: 2022 RSV Vaccine (1 - 1-dose 60+ series) RSV Vaccine (1 - 1-dose 60+ series) [facility] Start: 10-30-2022 End: 10-30-2022 CBC W Auto Differential panel - Blood CBC + DIFF Lab Routine 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) Lung nodules Malignant neoplasm of head, face and neck (HCC) Expected: 10/30/2022 (Approximate), Expires: 10/30/2022 [facility] Work Phone: Comment on above: Expected: 10/30/2022 (Approximate), Expi res: 10/30/2022 Start: 10-30-2022 End: 10-30-2022 Comprehensive metabolic 2000 panel - Serum or Plasma COMP METABOLIC PANEL Lab Routine 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) Lung nodules Malignant neoplasm of head, face and neck (HCC) Expected: 10/30/2022 (Approximate), Expires: 10/30/2022 [facility] Work Phone: Comment on above: Expected: 10/30/2022 (Approximate), Expi res: 10/30/2022 Start: 10-30-2022 End: 11-29-2022 Ct soft tissue neck w/contrast material CT NECK SOFT TISSUE W IVCON Radiology Routine Malignant neoplasm of head, face and neck (HCC) Expected: 10/30/2022 (Approximate), Expires: 11/29/2022 [facility] Work Phone: Comment on above: Expected: 10/30/2022 (Approximate), Expi res: 11/29/2022 Start: 10-30-2022 End: 11-29-2022 Ct thorax w/contrast material CT CHEST W IVCON Radiology Routine Lung nodules Expected: 10/30/2022 (Approximate), Expires: 11/29/2022 [facility] Work Phone: Comment on above: Expected: 10/30/2022 (Approximate), Expi res: 11/29/2022 Start: 10-13-2022 Adult depression screening assessment DEPRESSION SCREENING [facility] Start: 07-17-2022 Aerobic Culture Aerobic Culture [facility] Start: 07-17-2022 Anaerobic Culture Anaerobic Culture [facility] Start: 07-17-2022 Microscopic observation [Identifier] in Unspecified specimen by Gram stain [facility] Start: 07-17-2022 Cerebrospinal fluid culture [facility] Start: 07-17-2022 End: 07-17-2022 [facility] Start: 07-17-2022 [facility] Start: 06-18-2022 DEPRESSION ASSESSMENT DEPRESSION ASSESSMENT [facility] Start: 04-16-2022 Plain chest X-ray XR ribs LT min 3V w [id number]* [facility] Start: 04-16-2022 XR Unspecified body region Views [facility] Start: 02-16-2022 Influenza vaccination [facility] Start: 10-14-2021 Adult depression screening assessment DEPRESSION SCREENING [facility] Start: 06-23-2021 COVID-19 VACCINE (3 - Booster for Pfizer series) COVID-19 VACCINE (3 - Booster for Pfizer series) [facility] Start: 06-18-2021 DEPRESSION ASSESSMENT DEPRESSION ASSESSMENT [facility] Start: 03-18-2021 COVID-19 VACCINE (3 - Booster for Pfizer series) COVID-19 VACCINE (3 - Booster for Pfizer series) [facility] Start: 2017 PROSTATE CANCER SCREENING DISCUSSION PROSTATE CANCER SCREENING DISCUSSION [facility] Start: 2017 Prostate specific antigen measurement Prostate Cancer Screening Discussion [facility] Start: 2012 Pneumococcal Vaccine: 50+ (1 of 1 - PCV) Pneumococcal Vaccine: 50+ (1 of 1 - PCV) [facility] Start: 2012 Screening for malignant neoplasm of lung Lung Cancer Screening [facility] Start: 2012 SHINGRIX VACCINE (1 of 2) SHINGRIX VACCINE (1 of 2) [facility] Start: 2012 Zoster Vaccines (1 of 2) Zoster Vaccines (1 of 2) [facility] Start: 11-25-2007 COLOGUARD (FIT-DNA) COLOGUARD (FIT-DNA) [facility] Start: 11-25-2007 Colonoscopy COLONOSCOPY [facility] Start: 11-25-2007 COLORECTAL CANCER SCREENING COLORECTAL CANCER SCREENING [facility] Start: 11-25-[address] COLONOGRAPHY [facility] Start: 11-25-2007 FECAL OCCULT BLOOD FECAL OCCULT BLOOD [facility] Start: 11-25-2007 Prostate specific antigen measurement Prostate Cancer Screening Discussion [facility] Start: 11-25-2007 Screening for malignant neoplasm of colon [facility] Start: 11-25-2007 SIGMOIDOSCOPY SIGMOIDOSCOPY [facility] Start: 1997 Lipid panel Lipid Screening [facility] Start: 1997 LIPID SCREEN LIPID SCREEN [facility] Start: 1981 Hepatitis A Vaccines (1 of 2 - Risk 2-dose series) Hepatitis A Vaccines (1 of 2 - Risk 2-dose series) [facility] Start: 1981 Pneumococcal vaccination Pneumococcal Vaccine (1 of 2 - PCV) [facility] Start: 1981 Urine microalbumin profile DTAP,TDAP,TD (1 - Tdap) [facility] Start: 1980 Anxiety Screening Anxiety Screening [facility] Start: 1980 Depression Screening Depression Screening [facility] Start: 1980 Diabetes mellitus screening Diabetes Screening [facility] Start: 1980 HEPATITIS C SCREENING HEPATITIS C SCREENING [facility] Start: 1980 Hepatitis C screening Hepatitis C Screening [facility] Start: 1980 HIV SCREENING HIV SCREENING [facility] Start: 1980 HIV screening HIV Screening [facility] Start: 1968 Pneumococcal Vaccine: Pediatrics (0 to 5 Years) and At-Risk Patients (6 to 64 Years) (1 of 2 - PCV) Pneumococcal Vaccine: Pediatrics (0 to 5 Years) and At-Risk Patients (6 to 64 Years) (1 of 2 - PCV) [facility] Start: 11-25-1963 MMR Vaccines (1 of 1 - Standard series) MMR Vaccines (1 of 1 - Standard series) [facility] Start: 1962 Annual wellness visit Welcome to Medicare Visit [facility] Start: 1962 HIV screening HIV Screening [facility] Start: 1962 Lipid panel Lipid Panel [facility] Start: 1962 Screening for malignant neoplasm of colon [facility] Start: 1962 Screening for osteoporosis Bone Density Scan [facility] Start: 1962 Yearly Adult Physical Yearly Adult Physical [facility] Ankle brachial pressure index [facility] Bacteria identified in Cerebral spinal fluid by Culture CSF CULT + STAIN Microbiology Routine NPH (normal pressure hydrocephalus) ([facility]) Ordered: 09/13/2022 [facility] Work Phone: Comment on above: Ordered: 09/13/2022 Bacteria identified in Unspecified specimen by Aerobe culture [facility] Bacteria identified in Unspecified specimen by Anaerobe culture [facility] End: 04-12-2024 Basic metabolic 2000 panel - Serum or Plasma Basic metabolic panel Lab Routine Morning draw (Lab) for 3 Occurrences starting 04/10/2024 until 04/12/2024, 1 completed [facility] Work Phone: Comment on above: Morning draw (Lab) for 3 Occurrences sta rting 04/10/2024 until 04/12/2024, 1 completed End: 04-12-2024 CBC panel - Blood by Automated count CBC Lab Routine Morning draw (Lab) for 3 Occurrences starting 04/10/2024 until 04/12/2024, 1 completed [facility] Work Phone: Comment on above: Morning draw (Lab) for 3 Occurrences sta rting 04/10/2024 until 04/12/2024, 1 completed Cell count panel - C erebral spinal fluid CSF CELL COUNT Lab Routine NPH (normal pressure hydrocephalus) ([facility]) Ordered: 09/13/2022 [facility] Work Phone: Comment on above: Ordered: 09/13/2022 Cell count, cerebros roberto fluid [facility] Comprehensive metabo lic 2000 panel - Serum or Plasma [facility] End: 04-09-2024 Continuous Pulse oximetry, In Phase 1 Continuous Pulse oximetry, In Phase 1 Respiratory Care Routine Continuous until discontinued starting 04/09/2024 [facility] Service Area Work Phone: Comment on above: Continuous until discontinued starting 1 Enolase.neuron speci fic [Mass/volume] in Serum or Plasma by Immunoassay [facility] Fungus identified in Unspecified specimen by Culture [facility] Glucose [Mass/volume ] in Cerebral spinal fluid [facility] Glucose [Mass/volume ] in Serum or Plasma POCT Glucose Point of Care Testing - Docked Device Routine As needed (Lab) until discontinued starting 04/09/2024 [facility] Service Area Work Phone: Comment on above: As needed (Lab) until discontinued start ing 04/09/2024 End: 04-09-2024 Incentive spirometry Instruct Incentive spirometry Instruct Respiratory Care Routine Once for 1 Occurrences starting 04/09/2024 until 04/09/2024 [facility] Work Phone: Comment on above: Once for 1 Occurrences starting 04/09/20 until 04/09/2024 IR LP FOR DRAINAGE (PRESSURE) IR LP FOR DRAINAGE (PRESSURE) Radiology Routine NPH (normal pressure hydrocephalus) (HCC) Ordered: 09/13/2022 [facility] Work Phone: Comment on above: Ordered: 09/13/2022 Meningitis+Encephali tis pathogens DNA and RNA panel - Cerebral spinal fluid by JER with non-probe detection [facility] End: 10-20-2023 Mri brain brain stem w/o w/contrast material MRI BRAIN WO/W IVCON Radiology Routine 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HCC) 1 Occurrences starting 09/20/2022 until 10/20/2023 [facility] Work Phone: Comment on above: 1 Occurrences starting 09/20/2022 until 10/20/2023 Patient Education [facility] Work Phone: Patient referral [facility] Work Phone: Protein [Mass/volume ] in Cerebral spinal fluid [facility] End: 04-09-2024 Urethral Catheter Removal Urethral Catheter Removal Procedures Routine Once for 1 Occurrences starting 04/09/2024 until 04/09/2024 [facility] Work Phone: Comment on above: Once for 1 Occurrences starting 04/09/20 until 04/09/2024 Virus identified in Unspecified specimen by Culture [facility] End: 02-13-2024 XR Cervical spine 6 Views [facility] Service A hermila Work Phone: Comment on above: Once for 1 Occurrences starting 02/13/20 until 02/13/2024 XR Chest 2 Views XR chest 2 view s Imaging Routine Cervical radiculopathy Senile osteoporosis 02/13/2024 11:10 AM EDT [facility] Work Phone: XR Chest 2 Views [facility] Immunizations Immunization Date Immunization Notes Care Provider Fa cility 01-21-2021 COVID-19 Vaccine Pfi zer - Documentation Purposes Only Griselda Kuns Other [facility] 12-30-2020 COVID-19 Vaccine Pfi zer - Documentation Purposes Only Griselda Kuns Other [facility] 01-24-2016 KENALOG - 10 mg Griselda Kuns Other [employer] [facility] [employer] Other 01-27-2015 Toradol per 15 mg Griselda Kuns Other [employer] [facility] Other 03-15-2014 tetanus toxoid, redu julienne diphtheria toxoid, and acellular pertussis vaccine, adsorbed Griselda Kuns Other [employer] [facility] Other Payers Date Payer Category Payer Self-pay [id number] 2024 Medicare [id number]. [id number] 2024 Medicare [id number] 2023 Managed Care (Private) [facility] [id number]. [id number] 2022 Private Health Insurance [id number] 2.16.840.1.051063.19 2021 Private Health Insurance [facility] [employer]IC [id number] 2021-Present [phone] [address] [place] [address] PPO [id number]. [id number] 2019 Medicaid [employer] [id number] 2019-Present [phone] [address] [place] [address] Medicaid [id number]. [id number] 2019 Medicaid [id number] 1.13.159.2. [id number] 2019 Private Health Insurance 1.2 .840.235984.1.13.159.2. 7.3.249424.315 2019 Unknown [id number] 2019 Unknown 2019 Unknown [id number] 2.16.840.1.151047.19 1962 Unknown [id number] 2.16.840.1.085133.3.579.2. 693 1962 Unknown [id number] 2.16.840.1.440898.3.579.2. 182 1962 Unknown [id number] 2.16.840.1.751438.3.579.2. 182 1962 Unknown [id number] 2.16.840.1.335380.3.579.2. 1244 1962 Unknown [id number] 2.16.840.1.264780.3.579.2. 1244 1962 Unknown [id number] 2.16.840.1.785058.3.579.2. 1244 1962 Unknown [id number] 2.16.840.1.667370.3.579.2. 1244 1962 Unknown [id number] 2.16.840.1.892939.3.579.2. 1244 1962 Unknown [id number] 2.16.840.1.088412.3.579.2. 1244 1962 Unknown [id number] 2.16.840.1.209826.3.579.2. 1244 1962 Unknown [id number] 2.16.840.1.440168.3.579.2. 1244 1962 Unknown [id number] 2.16.840.1.434503.3.579.2. 1244 1962 Unknown [id number] 2.16.840.1.253223.3.579.2. 1244 1962 Unknown [id number] 2.16.840.1.611609.3.579.2. 1244 1962 Unknown [id number] 2.16.840.1.717662.3.579.2. 1245 1962 Unknown [id number] 2.16.840.1.601288.3.579.2. 1245 1962 Unknown [id number] 2.16.840.1.033664.3.579.2. 1245 1962 Unknown [id number] 2.16.840.1.338249.3.579.2. 1243 1962 Unknown [id number] 2.16.840.1.192548.3.579.2. 1244 1962 Unknown [id number] 2.16.840.1.805712.3.579.2. 1244 1962 Unknown [id number] 2.16.840.1.012538.3.579.2. 196 1962 Unknown [id number] 2.16.840.1.372642.3.579.2. 196 1962 Unknown [id number] 2.16.840.1.443825.3.579.2. 1962 Unknown [id number] 2.16.840.1.211051.3.579.2. 196 1962 Unknown [id number] 2.16.840.1.333970.3.579.2. 1962 Unknown [id number] 2.16.840.1.987821.3.579.2. 1962 Unknown [id number] 2.16.840.1.790300.3.579.2. 1258 1962 Unknown [id number] 2.16.840.1.642696.3.579.2. 1258 1962 Unknown [id number] 2.16.840.1.111001.3.579.2. 1258 1962 Unknown [id number] 2.16.840.1.292051.3.579.2. 1258 1962 Unknown [id number] 2.16.840.1.080596.3.579.2. 1258 1962 Unknown [id number] 2.16.840.1.530285.3.579.2. 1258 1962 Unknown [id number] 2.16.840.1.600407.3.579.2. 1258 1962 Unknown [id number] 2.16.840.1.963152.3.579.2. 1258 1962 Unknown [id number] 2.16.840.1.114218.3.579.2. 1259 1962 Unknown [id number] 2.16.840.1.534176.3.579.2. 1259 Private Health Insurance [id number] Unknown [id number] Unknown [id number] 2.16.840.1.306753.3.579.2. 531 Unknown [id number] 2.16.840.1.520703.3.579.2. 531 Unknown [id number] 2.16.840.1.264326.3.579.2. 531 Unknown [id number] 2.16.840.1.610574.3.579.2. 531 Unknown [id number] 2.16.840.1.091424.3.579.2. 531 Unknown [id number] 2.16.840.1.185151.3.579.2. 531 Unknown [id number] 2.16.840.1.111788.3.579.2. 531 Unknown [id number] 2.16.840.1.286601.3.579.2. 531 Unknown [id number] 2.16.840.1.383472.3.579.2. 531 Social History Date Type Detail Facility Start: 04-29-2018 End: 11-05-2024 Tobacco smoking status [facility] Smoker (finding) [facility] Start: 1960 Sex Assigned At Male F [facility] Start: 10-16-2019 Tobacco smoking status COIS Ex-smoker [facility] Start: 06-18-1973 History of tobacco use Cigarette Smoker [facility] Start: 10-16-2019 End: 09-24-2024 Cigarettes smoked current (pack per day) - Reported 1.5 [facility] Start: 10-16-2019 End: 01-02-2024 Tobacco use and exposure Smokeless tobacco non-user [facility] Start: 10-14-2020 End: 01-08-2025 Alcohol intake Ex-drinker (finding) [facility] Start: 01-20-2019 History SDOH Alcohol Comment quit 2001 [facility] Start: 10-16-2019 Tobacco Comment quit smoking 01/2019 [facility] Start: 1960 Sex Assigned At Not on file [facility] Start: 10-03-2021 End: 10-13-2024 Exposure to SARS-CoV-2 (event) Not sure [facility] Start: 07-03-2023 End: 09-24-2024 Sex Assigned At [facility] Start: 03-10-2022 End: 03-20-2022 Exposure to SARS-CoV-2 (event) Unable to assess [facility] Work Phone: Start: 12-28-2022 End: 01-02-2024 Daily Smoker [facility] Start: 03-13-2023 Tobacco Comment 6-10 cigarettes/day [facility] Start: 09-20-2022 Gender identity Identifies as male gender (finding) [facility] Start: 09-20-2022 Sexual orientation Heterosexual (fin ding) [facility] Tobacco smoking status NHIS Tobacco smoking consumption unknown [facility] Work Phone: Start: 10-05-2023 End: 01-03-2024 Alcoholic beverage intake Lifetime non-drinker (finding) [facility] Work Phone: Adult Depression Screening Assessment 2 [facility] How often to you hav e a drink containing alcohol? Never [facility] In the past 12 months, was there a time when you were not able to pay the mortgage or rent on time? No [facility] Work Phone: Start: 04-28-2024 End: 11-25-2024 Sex Male (finding) [facility] NEGATED: Highlighted rowStart: NINF History of tobacco use Passive smoker [facility] Work Phone: Medical Equipment Procedure Code Equipment Code Equipment Origin al Text Equipment Identifier Dates Angiogram, lower extremity, left Multiple peripheral artery stent, bare-metal [id number] Start: 05-07-2023 Allograft, Triad Lordotic 6 X 11 X 14 - [id number] - [id number] Start: 04-09-2024 Allograft, Triad Lordotic 6 X 11 X 14 - [id number] - [id number] Start: 04-09-2024 Plate, Acp, 1.6v , 2 Level, 34mm - [id number] Start: 04-09-2024 Screw, Acp, Self Drill, 3.5 X 17mm, Variable - [id number] Start: 04-09-2024 3.5 X 19mm Screw [id number] Start: 04-09-2024 Comment on above: Description: per juan carlos l only jdr 04/10 Goals Date Patient Goal Desired Activity /State Personal health goal Functional Status Date Assessment Result Facility 10-13-2024 Patient Health Quest ionnaire 2 item (PHQ-2) [Reported] [facility] Work Phone: 10-13-2024 PHQ-9 quick depressi on assessment panel [Reported.PHQ] [facility] Work Phone: Clinical Notes 11-03-2008 to 03-18-2025 Oziel Cadena MD - 03/18/2025 11:30 AM EDT Note Date & Type Note Facility 03-18-2025 History of Presen t illness Narrative Images from the original note were not included. Subjective Shantel Melendez is a 64 y.o. male who's chief complaint is pain in his left brachial and left anterior shoulder. History of Present Illness The patient presents [...] equal, round, and reactive to light and accommodation, both directly and consensually. Visual mcgrath were full [...] in all four extremities, including at least cabinet maker, finger abductors, biceps, triceps, deltoid, toe flexors [...] and spasticity are not evident. Arm swing is normal. Toe, heel, and tandem walking are performed [...] Procedure was done by Dr. Oziel Cadena. Anterior Shoulder injection After explaining the risks, complications, and benefits of the procedure, the patient was seated in the chair. Allergies were reviewed, the consent was signed. After palpating the left humeral head, distal clavicle, and coracoid process for the most tender area in the bursa, the area was marked for the injections site. Using sterile technique and surface anesthetic; a 25 gauge 1 1/2 spinal needle is inserted medial to the head of humerus, [...] night. He is advised to take Lyrica in the morning to avoid feeling hungover or groggy. documented in this encounter [facility] 02-19-2025 Evaluation note Authored February 19, 2025 5:18pm Sooner if needed, the ER if concerns,The above note written by Shilpi Lantigua LPN acting as human recorder, note dictated by Dr. Griselda Hastings [facility] Work Phone: 1(391) 792-792008-20-2025 History of Present illness Narrative* Oziel Cadena [...] to alleviate the pain. documented in this encounterHannibal Regional [id number] Evaluation note* Diagnosis Onset Date Resolution Status Admit Date Colon polyps acute January 12, 2 025 3:14pm Dyspepsia acute January 12 3:14pm GERD (gastroesophageal reflu x disease) acute January 12, 2025 3:14pm Anxiety and depression acute Se ptember 2024 10:28am Burning sensation acute Septemb er 2024 10:28am Colon polyps acute February 10:28am Hyperlipidemia acute February 19, 2025 10:28am Medicare annual wellness vis it, initial acute February 19, 10:28am Nicotine dependence with current use acute February 19 10:28am PAD (peripheral artery disease) acut e February 19, 2025 10:28am Screening for prostate cancer acute February 19, 2025 10:28am [facility] Work Phone: 1(796) 699-350607-24-2025 History of Present illness Narrative* QUENTIN Vail [...] INFLAMED SEBORRHEIC KERATOSIS Left Wrist - Anterior [place] and brown stuck on verrucous scaly papule [...] limited to risks of scarring, darker or family coach pigmentary changes, recurrence, incomplete removal and infection. [...] limited to risks of scarring, darker or family coach pigmentary changes, recurrence, incomplete removal and infection. [...] 1 year, skin check documented in this encounterHannibal Regional [id number] History of Present illness Narrative* Oziel Cadena [...] spinal cord stimulator, as suggested by his stage settings painter, and is scheduled to see his [...] injection was administered today. documented in this encounterHannibal Regional HospitalNbwlbaaokn60-52-5705 Evaluation note* Author Shilpi Lantigua [facility] Authored November 19, 2024 2:36p m Sooner if needed, the ER if concerns,The above note written by Shilpi Lantigua LPN acting as human recorder, note dictated by Dr. Griselda Hastings [facility] Work Phone: 1(877) 264-433005-28-2025 History of Present illness Narrative* Oziel Cadena [...] ezetimibe (ZETIA) 10 mg, Oral, Daily HYDROcodone-acetaminophen (Rainbow) 5-325 MG tablet take 1 tablet orally [...] Depression: Not at risk (11/05/2024) Received from [facility] PHQ-2 PHQ-2 score: 2 REVIEW OF [...] Ana Luisa's absent. Ankle clonus absent. Coordination Lgezdc-xi-hxun, rapid alternating movements and kfcq-bl-dmie normal bilaterally without dysmetria. Gait Normal casual, [...] the injections if needed. documented in this encounterHannibal Regional HospitalOiftkepgso55-86-7340 NoteHNO ID: [id number] Author: RACQUEL COLE MD Service: ? Author Type: Physician Type: Progress Notes Filed: 11/07/2024 11:09 Note Text: NAME: Shantel Melendez CLINIC NO.: [id number] DATE OF SERVICE: November 07, 2024 (Curtis) Some elements in this clinic note that are critical to medical decision making have been carefully reviewed and included from a prior clinic note dated: November 02, 2023 (Curtis) Referring Provider: Griselda Hastings, DO Additional Clinicians involved in Shantel Fatimah Melendez's care: Dr Kimberly Nichole ENT, Dr. Ibarra [place] surgery [facility] DIAGNOSIS: Head and neck cancer ASSESSMENT: [...] 1.8 mm of invasive disease (Stage I, [id number], HPV+ oropharyngeal SCC).resected T1 N1 base of [...] Obtain coloscopy report and pathology results from [facility] Scans and labs in 1 [...] adenopathy is identified. 10/05/2021 - MRI Brain: [facility] There is T2 and T2 [...] microvascular ischemic change. 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 [...] IV SITE APPEARANCE: Clean,Dry and Intact SIGNATURE: Curtsi Da Silva RN PATIENT NAME: Shantel Melendez DATE: November 03, 2024 TIME: 8:13 [facility]05-19-2025 NoteHNO ID: [id number] Author: SALLY DOYLE RT(R) Service: ? 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 Curtis Da Silva RN [facility]05-19-2025 Miscellaneous Notes* Telephone Encounter - Curtis Da Silva RN - 11/03/2024 7:49 AM EDT Please sign pended labs for 1 year f/u-will draw with CT today Thank You! Curtis Da Silva RN documented in this encounterPark[facility]04-28-2025 History of Present illness Narrative* Doretha [...] assess the C7 screw. Doretha Harris MD Auditing Coder of Neurosurgery [facility] [place] [facility] ICU Office: [phone] [1] Past Surgical History: Procedure Laterality Date [...] 60 capsule, Rfl: 0 documented in this [facility] Work Phone: 1(733) 239-428404-21-2025 [facility]iology [facility] Main [place] [address] [place] [address] CT Scan Report Signed Patient: Shantel Melendez MR#: [id number] : 1960 Acct:[id number] Age/Sex: 63 / M ADM Date: 5 Loc: ER Room: Type: [facility] ER Attending Dr: Copies to: Manisha [...] Dorothy Eubanks M.D.10/06/2024 4:08 PM Dictation Location: [place] [address] Transcribed By: [facility] 10/06/24 5803 Dictated By: Dorothy Eubanks MD 10/06/24 1556 Signed By: 10/06/24 1604 [facility] Work Phone: 1(876) 757-335904-21-2025 [facility]iology [facility] [place] [address] [place], [place] [address] CT Scan Report Signed Patient: Shantel Melendez MR#: [id number] : 1960 Acct:[id number] Age/Sex: 63 / M ADM Date: 5 Loc: ER Room: Type: [facility] ER Attending Dr: Copies to: Manisha [...] Dorothy Eubanks M.D.10/06/2024 3:56 PM Dictation Location: [place] [address] Transcribed By: [facility] 10/06/24 1556 Dictated By: Dorothy Eubanks MD 10/06/24 155 Signed By: 10/06/24 155 [facility] Work Phone: 1(364) 426-663303-27-2025 Evaluation note* Diagnosis Onset Date Resolution Status Admit Date Current every day smoker acute September 11, 2024 8:53am PAD (peripheral artery disease) acut e September 11, 2024 8:53am Right leg claudication acute [facility] 2024 8:53am [facility] Work Phone: 1(997) 909-463603-27-2025 Evaluation note* Diagnosis Onset Date Resolution Status Admit Date Current every day smoker acute September 11, 2024 8:53am PAD (peripheral artery disease) acut e September 11, 2024 8:53am Right leg claudication acute [facility] 2024 8:53am Cardiac arrhythmia acute October 272024 9:37am Essential hypertension acute Ma y 2024 9:37am Hyperlipidemia acute October 27, 2024 9:37am 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, 2024 9:37am PAD (peripheral artery disease) sophy mone October 27, 2024 9:37am [facility] Work Phone: [phone] 930-664803-27-2025 Evaluation note* Diagnosis Onset Date Resolution Status Admit Date Current every day smoker acute September 11, 2024 8:53am PAD (peripheral artery disease) acut e September 11, 2024 8:53am Right leg claudication acute [facility] 2024 8:53am Abdominal pain acute September 1:02pm Change in bowel habits acute Ap ril 2024 1:02pm Diarrhea acute October 10 1:02pm Dysphagia acute October 10 1:02pm Early satiety acute October 10, 2024 1:02pm Unexplained weight loss acute A pril 2024 1:02pm Cardiac arrhythmia acute October 272024 9:37am Essential hypertension acute Ma 2024 9:37am Hyperlipidemia acute October 27, 2024 9:37am 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, 2024 9:37am PAD (peripheral artery disease) sophy mone October 27, 2024 9:37am Abdominal pain acute November 17, 2024 1:57pm Change in bowel habits acute Ju 2024 1:57pm Diarrhea acute November 17, 2024 1:57pm Dysphagia acute November 17, 2024 1:57pm [facility] Work Phone: 1(486) 393-156803-27-2025 Evaluation note* Diagnosis Onset Date Resolution Status [...] infection) acute November 19, 2024 2 :26pm [facility] Work Phone: 1(448) 129-794403-27-2025 History of Present illness Narrative* Oziel Cadena [...] ezetimibe (ZETIA) 10 mg, Oral, Daily HYDROcodone-acetaminophen (Rainbow) 5-325 MG tablet take 1 tablet orally [...] Past Medical History: Diagnosis Date Anxiety Depression (CMS/[facility]) HCVD (hypertensive cardiovascular disease) (CMS/HCC) Headache History [...] Depression: Not at risk (06/30/2024) Received from [facility] PHQ-2 Patient Health Questionnaire-2 Score: 2 [...] Ana Luisa's absent. Ankle clonus absent. Coordination Scrsrz-yt-ppoa, rapid alternating movements and xsbl-qw-xgfz normal bilaterally without dysmetria. Gait Normal casual, [...] the injections if needed. documented in this encounterHannibal Regional HospitalUsetjvcxgh61-77-4599 History of Present illness Narrative* Oziel Cadena [...] ezetimibe (ZETIA) 10 mg, Oral, Daily HYDROcodone-acetaminophen (Rainbow) 5-325 MG tablet take 1 tablet orally [...] Depression: Not at risk (06/30/2024) Received from [facility] PHQ-2 Patient Health Questionnaire-2 Score: 2 [...] the injections if needed. documented in this encounterHannibal Regional HospitalCrrespotbt17-86-7338 Evaluation note* Author Shilpi Lantigua [facility] Authored July 03, 2024 4 :44pm Sooner if needed, the ER if concerns,The above note written by Shilpi Lantigua LPN acting as human recorder, note dictated by Dr. Griselda Hastings [facility] Work Phone: 1([phone]) 993-396201-15-2025 History of Present illness Narrative* Oziel Cadena [...] ezetimibe (ZETIA) 10 mg, Oral, Daily HYDROcodone-acetaminophen (Rainbow) 5-325 MG tablet take 1 tablet orally [...] Depression: Not at risk (06/30/2024) Received from [facility] PHQ-2 Patient Health Questionnaire-2 Score: 2 [...] injections at that time. documented in this encounterHannibal Regional HospitalChllwqushb53-10-4399 History of Present illness Narrative* Doretha Harris [...] another set of XR. Doretha Harris MD Auditing Coder of Neurosurgery [facility] [place] [facility] ICU Office: [phone] Scribe Attestation By signing my name below, I, Shira Sen, Scribe, attest that this documentation has been preparedunder the direction and in the presence of Doretha Harris MD. documented in this [facility] Work Phone: 1([phone]) 103-298412-04-2024 History of Present illness Narrative* Oziel Cadena [...] ezetimibe (ZETIA) 10 mg, Oral, Daily HYDROcodone-acetaminophen (Rainbow) 5-325 MG tablet take 1 tablet orally [...] Depression: Not at risk (04/09/2024) Received from [facility] PHQ-2 Patient Health Questionnaire-2 Score: 0 [...] his injections if needed. documented in this encounterHannibal Regional HospitalYqnfibmhzk41-35-3490 History of Present illness Narrative* Solomon Narayanan PA-C - 04/30/2024 1:00 PM EST Images from the original note were not included. [facility] [place] Department of Neurological Surgery Post Operative Patient [...] CAD (coronary artery disease) Peripheral vascular disease (CMS-HCC) Past Medical History: Diagnosis Date Anxiety Cataract s/p excision of left Cervical radiculopathy Chronic pain disorder Coronary artery disease Depression Dysphagia thin liquids Hypertension NPH (normal pressure hydrocephalus) ([facility]) PAD (peripheral artery disease) ([facility]) s/p stent (05/2023) on ASA 81mg Peripheral vascular disease ([facility]) Pontine lesion watchful waiting Pulmonary nodule Skin cancer of scalp s/p excsison Spinal stenosis severe cervical stenosis, left sided foraminal stenosis at C5-6 and C6-7 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 Sincerely, RICH Hernandez PA-C Associate Physician Investigation Division Captain, Neurosurgery Clinical Auditing Coder [facility] [place] [address] documented in this [facility]Gu[facility] Work Phone: 1([phone]) 652-130811-11-2024 Evaluation note* Diagnosis Onset Date Resolution Status [...] prostate cancer acute July 03, 2024 9:23am [facility] Work Phone: 1([phone]) 117-864210-24-2024 Hospital course Narrative* Aaron Gallo PA-C - [...] HYDROcodone-acetaminophen 5-325 mg tablet; Commonly known as: Rainbow tiZANidine 4 mg capsule; Commonly known as: Zanaflex Outpatient Follow-Up Future Appointments Date Time Provider Department Center 04/30/2024 1:00 PM Solomon Narayanan PA-C [id number] [place] 05/02/2024 9:00 AM [facility] [place] SCC PET [facility] [place] [place] [place] [place] 05/02/2024 10:00 AM Helder Jack MD [id number] [facility] 06/30/2024 9:00 AM Doretha Harris MD [id number] [place] Aaron Gallo PA-C documented in this [facility] Work Phone: [phone]) 914-507410-24-2024 History of Present illness Narrative* Nikole Lezama, AnuradhaD - 04/10/2024 12:11 PM EDT Pharmacy Medication History Review Shantel Melendez is a 63 y.o. male admitted for Cervical radiculopathy. Pharmacy reviewed the patient's wckuq-od-refoanoey medications and allergies for accuracy. Medications ADDED: norco Medications CHANGED: Tizanidine nightly to as needed Medications REMOVED: Diamox Albuterol The list below reflects the updated [employer] list. Prior to Admission Medications Prescriptions Last Dose Informant HYDROcodone-acetaminophen (Rainbow) 5-325 mg tablet Self Sig: Take 1.5 [...] Report Patient interview (good historian-required some prompting) [facility] medical note 01/29 Additional Comments: none Nikole Lezama PharmD Transitions of Care Pharmacist 04/10/24 Secure Chat preferred If no response call [phone] or [employer] Med Rec * Tori Johnson, OT - 04/10/2024 11:57 AM EDT Occupational Therapy Evaluation Patient Name: Shantel Melendez Today's Date: 04/10/2024 Room: [address] [place] [address] Time Calculation Start Time: 1019 Stop Time: 1032 Time Calculation (min): 13 min Assessment IP OT Assessment OT Assessment: Pt presents is at [facility] and reports improved overall condition since surgery. 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.] Prior Function Per Pt/Caregiver Report Level of [place]uria: (independent ambulation in/outdoors no device, independent stairclimbing as needed, no falls) ADL Assistance: Independent Homemaking Assistance: Independent Ambulatory Assistance: Independent 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 documented in this [facility] Work Phone: 1(325) 153-666310-23-2024 Plan of care note* Care Plan - [...] goals for the shift include pain management. [facility] Work Phone: 1(625) 101-810710-23-2024 Miscellaneous Notes* Care Plan - Elizabeth Esposito [...] (B) Operative Note Date: 04/09/2024 OR Location: [facility] OR Name: Shantel Melendez, : 1960, Age: 63 y.o., , Sex: male Diagnosis Pre-op Diagnosis * Cervical radiculopathy [M54.12] * Senile osteoporosis [M81.0] Post-op Diagnosis * Cervical radiculopathy [M54.12] * Senile osteoporosis [M81.0] Procedures Fusion Spine Anterior Cervical and Discectomy C5-6, C6-7 33323 - MO ARTHRD ANT INTERBODY DECOMPRESS CERVICAL BELW C2 MO ARTHRD ANT INTERBODY DECOMPRESS CERVICAL BELW C2 [88424] MO ARTHRD ANT INTERDY CERVCL BELW C2 EA ADDL NTRSPC [45445] MO ALLOGRAFT FOR SPINE SURGERY ONLY STRUCTURAL [92919] MO MICROSURG TQS REQ USE OPERATING MICROSCOPE [03050] Surgeons * Doretha Harris - Primary Resident/Fellow/Other Investigation Division Captain: Surgeons and Role: * Chicho Bryan MD [...] 85 mL Specimen: No specimens collected Staff: Decorating And Assembly Supervisor: Derrell Scrub Person: Beverly Scrub Person: Shaina Drains and/or Catheters: Closed/Suction Drain 1 Neck Bulb 10 Fr. (Active) Urethral Catheter Double-lumen;Non-latex 16 Fr. (Active) Tourniquet Times: Implants: Implants Type Name Action Serial No. Spinal Hardware SCREW, DISTRACTION, 14 MM - [id number] Used, Not Implanted Spinal Hardware ALLOGRAFT, TRIAD LORDOTIC 6 X 11 X 14 - [id number] - [id number] Implanted [id number] Spinal Hardware ALLOGRAFT, TRIAD LORDOTIC 6 X 11 X 14 - [id number] - [id number] Implanted [id number] Spinal Hardware PLATE, ACP, 1.6V, 2 LEVEL, 34MM - [id number] Implanted Spinal Hardware SCREW, ACP, SELF DRILL, 3.5 X 17MM, VARIABLE - [id number] Implanted 3.5 X 19MM SCREW Implanted Findings: [...] then placed our self-retaining retractor in and [place] pins in and placed the disc space [...] 04/09/2024 4:50 PM EDT documented in this [facility] Work Phone: [phone]) 260-651910-23-2024 Nurse Note* Shantelle Pacheco RN - 04/09/2024 7:03 PM EDT Patient transferred from PACU to [facility] via stretcher in stable condition. Patient oriented to room, bed, and call light. Skin assessment witnessed by Brianda Dowling RN. Will continue to monitor. [facility]10-23-[facility] Nurse Note* Shantelle Pacheco RN - 04/09/2024 7:03 PM EDT Patient transferred from PACU to [id number] via stretcher in stable condition. Patient oriented to room, bed, and call light. Skin assessment witnessed by Brianda Dowling RN. Will continue to monitor. documented in this [facility] Work Phone: 1(183) 533-458410-23-2024 Hospital Note* Hospital Course - Aaron Gallo PA-C - 04/09/2024 5:04 PM EDT 63M h/p HTN, CAD, PAD s/p stent on ASA81, pontine glioma, tongue cancer p/w LUE radiculopathy, 04/09 s/p C5-7 ACDF 04/10 PT/OT DC recs no needs, post operative xray shows good position, Drain removed [facility] Work Phone: 1([phone]) 407-667410-23-2024 Note* Op Note - Chicho Bryan MD - 04/09/2024 2:30 PM EDT Fusion Spine Anterior Cervical and Discectomy C5-6, C6-7 (B) Operative Note Date: 04/09/2024 OR Location: [facility] OR Name: Shantel Melendez, : 1960, Age: 63 y.o., , Sex: male Diagnosis Pre-op Diagnosis * Cervical radiculopathy [M54.12] * Senile osteoporosis [M81.0] Post-op Diagnosis * Cervical radiculopathy [M54.12] * Senile osteoporosis [M81.0] Procedures Fusion Spine Anterior Cervical and Discectomy C5-6, C6-7 84893 - MO ARTHRD ANT INTERBODY DECOMPRESS CERVICAL BELW C2 MO ARTHRD ANT INTERBODY DECOMPRESS CERVICAL BELW C2 [28640] MO ARTHRD ANT INTERDY CERVCL BELW C2 EA ADDL NTRSPC [51646] MO ALLOGRAFT FOR SPINE SURGERY ONLY STRUCTURAL [36090] MO MICROSURG TQS REQ USE OPERATING MICROSCOPE [81701] Surgeons * Doretha Harris - Primary Resident/Fellow/Other Investigation Division Captain: Surgeons and Role: * Chicho Bryan MD - Resident - Assisting * Rojas Edwards MD - Resident - Assisting Procedure Summary Anesthesia: General ASA: III Anesthesia Staff: Anesthesiologist: Fred Cheek MD C-AA: Shelly Mullins Capp [facility]; Guanaco Fofana [facility] IVONE: Jamee Woodall Estimated Blood Loss: 50 [...] 85 mL Specimen: No specimens collected Staff: Decorating And Assembly Supervisor: Derrell Scrub Person: Beverly Scrub Person: Shaina Drains and/or Catheters: Closed/Suction Drain 1 Neck Bulb 10 Fr. (Active) Urethral Catheter Double-lumen;Non-latex 16 Fr. (Active) Tourniquet Times: Implants: Implants Type Name Action Serial No. Spinal Hardware SCREW, DISTRACTION, 14 MM - [id number] Used, Not Implanted Spinal Hardware ALLOGRAFT, TRIAD LORDOTIC 6 X 11 X 14 - [id number] - [id number] Implanted [id number] Spinal Hardware ALLOGRAFT, TRIAD LORDOTIC 6 X 11 X 14 - [id number] - [id number] Implanted [id number] Spinal Hardware PLATE, ACP, 1.6V, 2 LEVEL, 34MM - [id number] Implanted Spinal Hardware SCREW, ACP, SELF DRILL, 3.5 X 17MM, VARIABLE - [id number] Implanted 3.5 X 19MM SCREW Implanted Findings: [...] then placed our self-retaining retractor in and [place] pins in and placed the disc space [...] Harris MD at 04/09/2024 4:50 PM EDT [facility] Work Phone: 1(357) 463-561610-23-2024 Attending History and physical note* Rojas Edwards MD - 04/09/2024 12:22 PM EDT H&P reviewed. The patient was examined and there are no changes to the H&P. Cosigned by Doretha Harris MD at 04/09/2024 12:53 PM EDT Source Note - Rick Mckinney APRN-DECORATIVE [employer] - 03/26/2024 10:30 AM EDT Images from [...] thin liquids Hypertension NPH (normal pressure hydrocephalus) ([facility]) PAD (peripheral artery disease) ([facility]) s/p stent (05/2023) on ASA 81mg [...] Flowsheet Row Pre-Admission Testing from 02/11/2024 in [facility] Questionnaire Series Submission from 02/06/2024 in [facility] with Generic Provider Laura Can you [...] walk up a hill? 5.5 filed at 02/11/2024 1418 5.5 filed at 02/06/2024 0032 Can you run a short distance? 0 filed at 02/11/2024 1418 8 filed at 02/06/2024 0032 Can you do light work around the house like dusting or washing dishes? 2.7 filed at 02/11/2024 85097.7 filed at 02/06/2024 003 Can you do moderate work around the house like vacuuming, sweeping floors or carrying groceries? 3.5 filed at 02/11/2024 1418 3.5 filed at 02/06/2024 003 Can you do heavy work around the house like scrubbing floors or lifting and moving heavy furniture?0 filed at 02/11/2024 1418 8 filed at 02/06/2024 003 Can you do yard work like raking leaves, weeding or pushing a mower? 0 filed at 02/11/2024 1418 4.5filed at 02/06/2024 003 Can you have sexual relations? 0 filed at 02/11/2024 1418 0 filed at 02/06/202431 Can you participate in moderate recreational activities like golf, bowling, dancing, doubles tennisor throwing a baseball or football? 0 filed at 02/11/2024 1418 0 filed at 02/06/2024 003 Can you participate in strenous sports like swimming, singles tennis, football, basketball, or skiing? 0 filed at 02/11/2024 1418 0 filed at 02/06/2024 003 DASI SCORE 18.95 filed at 02/11/2024 1418 39.45 filed at 02/06/2024 003 METS Score (Will be calculated only when all the questions are answered) 5.1 filed at 02/11/2024 1418 7.6 filed at 02/06/2024 0032 Meño DVT Assessment Flowsheet Row Pre-Admission Testing from 02/11/2024 in [facility] DVT Score 11 filed at 02/11/2024 1506 BMI 30 or less filed at 02/11/2024 1506 RETIRED: Current Status Major surgery planned, lasting over 3 hours filed at 02/11/2024 1506 RETIRED: History Prior major surgery, Previous malignancy filed at 02/11/2024 1506 RETIRED: Age 60-75 years filed at 02/11/2024 1506 Modified Frailty Index Flowsheet Row Pre-Admission Testing from 02/11/2024 in [facility] Non-independent functional status (problems with dressing, bathing, personal grooming, or cooking) 0 filed at 02/11/2024 1505 History of diabetes mellitus 0 filed at 02/11/2024 1505 History of COPD 0 filed at 02/11/2024 1505 History of CHF No filed at 02/11/2024 1505 History of MA 0 filed at 02/11/2024 1505 History of [...] Flowsheet Row Pre-Admission Testing from 02/11/2024 in [facility] High-Risk Surgery (Intraperitoneal, Intrathoracic,Suprainguinal vascular) 0 filed at 02/11/2024 1505 History of ischemic heart disease (History of MA, History of positive exercuse test, Current chest [...] Flowsheet Row Pre-Admission Testing from 02/11/2024 in [facility] Smoking status 0 filed at 02/11/2024 1506 [...] Flowsheet Row Pre-Admission Testing from 03/26/2024 in [facility] Pre-Admission Testing from 02/11/2024 in [facility] Do you snore loudly? 0 filed at [...] Yellow, Dark-Yellow Appearance, Urine Clear Clear Specific Fishtail, Urine 1.007 1.005 - 1.035 pH, Urine [...] Rate 63 BPM Atrial Rate 63 BPM MO Interval 268 ms QRS Duration 74 ms QT Interval 406 ms QTC Calculation(Bazett) 415 ms P Dimock 58 degrees R Dimock -3 degrees T Dimock 18 degrees QRS Count 10 beats Q [...] given to patient. Neurosurgery: Doretha Harris MD [facility] 01/03/24 seen for cervical radiculopathy. Neurosurgery: Jose Cruz Khan MD [facility] 11/05/23- [facility] seen for cervical stenosis of spine. 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 HEENT/Airway The patient has history of selective right neck dissection (II-V) and bilateral base of tongue/linguial tonsillar excision on 01/30/[address] 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 Currently with limited neck extension. No documented or reported history of airway difficulty. HemOnc: Racquel Cole MD [facility] 11/02/23-[facility] seen for head and neck [...] Cardiology Evaluation Cardiology: Lilliam Cason MD - [facility] (see media tab for last office [...] understanding ofpreoperative instructions. After Visit Summary given. [facility] Work Phone: 1(956) 612-497310-23-2024 History and physical note* Rojas Edwards MD - 04/09/2024 12:22 PM EDT H&P reviewed. The patient was examined and there are no changes to the H&P. Cosigned by Doretha Harris MD at 04/09/2024 12:53 PM EDT Source Note - Rick Mckinney APRN-DECORATIVE [employer] - 03/26/2024 10:30 AM EDT Images from [...] pressure hydrocephalus) (Multi) PAD (peripheral artery disease) ([facility]) s/p stent (05/2023) on ASA 81mg Peripheral vascular disease ([facility]) Pontine lesion watchful waiting Pulmonary nodule [...] Flowsheet Row Pre-Admission Testing from 02/11/2024 in [facility] Questionnaire Series Submission from 02/06/2024 in [facility] with Generic Provider Laura Can you [...] or washing dishes? 2.7 filed at 02/11/2024 71753.7 filed at 02/06/2024 0032 Can you do [...] 003 DASI SCORE 18.95 filed at 02/11/2024 1418 39.45 filed at 02/06/2024 003 METS Score (Will be calculated only when all the questions are answered) 5.1 filed at 02/11/2024 1418 7.6 filed at 02/06/2024 0032 Caprini DVT Assessment Flowsheet Row Pre-Admission Testing from 02/11/2024 in [facility] DVT Score 11 filed at 02/11/2024 1506 BMI 30 or less filed at 02/11/2024 1506 RETIRED: Current Status Major surgery planned, lasting over 3 hours filed at 02/11/2024 1506 RETIRED: History Prior major surgery, Previous malignancy filed at 02/11/2024 1506 RETIRED: Age 60-75 years filed at 02/11/2024 1506 Modified Frailty Index Flowsheet Row Pre-Admission Testing from 02/11/2024 in [facility] Non-independent functional status (problems with dressing, bathing, personal grooming, or cooking) 0 filed at 02/11/2024 1505 History of diabetes mellitus 0 filed at 02/11/2024 1505 History of COPD 0 filed at 02/11/2024 1505 History of CHF No filed at 02/11/2024 1505 History of MA 0 filed at 02/11/2024 1505 History of [...] Flowsheet Row Pre-Admission Testing from 02/11/2024 in [facility] High-Risk Surgery (Intraperitoneal, Intrathoracic,Suprainguinal vascular) 0 filed at 02/11/2024 1505 History of ischemic heart disease (History of MA, History of positive exercuse test, Current chest [...] Flowsheet Row Pre-Admission Testing from 02/11/2024 in [facility] Smoking status 0 filed at 02/11/2024 1506 [...] Flowsheet Row Pre-Admission Testing from 03/26/2024 in [facility] Pre-Admission Testing from 02/11/2024 in [facility] Do you snore loudly? 0 filed at [...] Yellow, Dark-Yellow Appearance, Urine Clear Clear Specific Fishtail, Urine 1.007 1.005 - 1.035 pH, Urine [...] Rate 63 BPM Atrial Rate 63 BPM MO Interval 268 ms QRS Duration 74 ms QT Interval 406 ms QTC Calculation(Bazett) 415 ms P Dimock 58 degrees R Dimock -3 degrees T Dimock 18 degrees QRS Count 10 beats Q [...] given to patient. Neurosurgery: Doretha Harris MD [facility] 01/03/24 seen for cervical radiculopathy. Neurosurgery: Jose Cruz Khan MD [facility] 11/05/23- [facility] seen for cervical stenosis of spine. 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 HEENT/Airway The patient has history of selective right neck dissection (II-V) and bilateral base of tongue/linguial tonsillar excision on 01/30/[address] 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 Currently with limited neck extension. No documented or reported history of airway difficulty. HemOnc: Racquel Cole MD [facility] 11/02/23-[facility] seen for head and neck [...] Cardiology Evaluation Cardiology: Lilliam Cason MD - [facility] (see media tab for last office [...] After Visit Summary given. documented in this encounterGuern[facility] Work Phone: 1(648) 560-172010-15-2024 Evaluation note* Author [facility] Authored April 01, 2024 1 0:01am The above note written by Leon Humphreys LPN, acting as human recorder, note dictated by Dr. Griselda Hastings. [facility] Work Phone: 1(651) 491-977208-15-2024 Evaluation note* Author Nida [facility] Authored January 31, 2024 10 :40am The above note written by Leon Humphreys LPN, acting as human recorder, note dictated by Dr. Griselda Hastings. Author Nidajennifer Humphreys [facility] Authored April 01, 2024 1 1:01am The above note written by Leon Humphreys LPN, acting as human recorder, note dictated by Dr. Griselda Hastings. [facility] Work Phone: 1([phone]) 532-582307-18-2024 History of Present illness Narrative* Doretha Harris [...] bone stimulator after surgery. Doretha Harris MD Auditing Coder of Neurosurgery [facility] [place] [facility] ICU Office: [phone] Scribe Attestation By signing my name below, I, Parisa Cabrera , Scribe attest that this documentation has been prepared under the direction and in the presence of MD Shirley. documented in this [facility] Work Phone: 1(962) 381-176706-27-2024 History of Present illness Narrative* Helder Jack MD - 12/13/2023 10:00 AM EDT Patient ID: Shantel Melendez is a 63 y.o. male. Referring Physician: Shimon Heaton PA-C [id number] [place] [address] Primary Care Provider: Griselda Hastings DO Subjective [...] hydrocephalus. He saw Dr. Lara at the [facility]. Also pain behind left eye. No RUE [...] issues. 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 INTERVAL HISTORY (12/13/2023): Since the last visit, he continues to have severe neck pain, which isslowly getting worse, along with some muffled hearing on the left side. He tried going back to parttime work, but the activity made the neck pain much more severe. He saw a Neurosurgeon at [facility] about the cervical stenosis, but he was unwilling to consider surgery for the neck due to the pontine lesion. He has now been to see a Neurosurgery PA (Solomon Narayanan) at [facility] about the neck, who thought surgical decompression was reasonable. He will see the Neurosurgeon soon to discuss the possible surgery. He has had some Botox injections into the neck and associated muscles, and has some steroid injections due next week. He tried some test shots for an Ablation procedure, but they were too painful. The ROS is as per documentation in the [facility] Objective BSA: There is no height or [...] Nate Benavidez 12/13/2023 9:38 AM Dictation workstation: [id number] Impression 1. Abnormal increased T2 signal in [...] will undergo a new MRI brain at [facility]. -I spent > 40 minutes in face to face consultation to review and discuss the above; 50% of whichor more was dedicated to counseling. Helder Jack MD documented in this [facility] Work Phone: 1(936) 671-921106-27-2024 Instructions* Patient Instructions* Alondra Escamilla RN - 12/13/2023 10:00 AM EDT Your next appointment will be in 5 months. Please schedule your MRI prior to this visit. Please contact [phone] option 5 then option 2 with any questions or concerns. For any scheduling concerns please call [phone] option 1 documented in this [facility] Work Phone: 1(139) 635-398306-26-2024 History of Present illness Narrative* Solomon Narayanan PA-C - 12/12/2023 1:00 PM EDT Images from the original note were not included. 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 Sincerely, RICH Hernandez PA-C Associate Physician Investigation Division Captain, Neurosurgery Clinical Auditing Coder [facility] [place] [address] documented in this [facility]Gu[facility] Work Phone: 1(511) 226-625005-17-2024 Instructions* Patient Instructions* Racquel Cole MD - 11/02/2023 10:13 AM EDT Scans and labs in 1 year RTC 1 week after documented in this encounterParkview [facility]05-17-[facility]24 History of Present illness Narrative* Racquel Cole MD - 11/02/2023 9:45 AM EDT Images from the original note were not included. NAME: Shantel Melendez CLINIC NO.: [id number] DATE OF SERVICE: November 02, 2023 (Juliapoornima) Some elements in this clinic note that are critical to medical decision making have been carefully reviewed and included from a prior clinic note dated: November 03, 2022 (Curtis). Referring Provider: Griselda Hastings, Additional Clinicians involved in Shantel Melendez's care: Dr Kimberly Nichole ENT, Dr. 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 10/05/2021 - MRI Brain: [facility] There is T2 and T2 [...] respiratory bronchiolitis. 01/30/2019 - Neck dissection at [facility] Base of tongue did [...] 2020: Doing well, still smokes, works at [employer]. Reviewed scans and there is no evidence [...] which included preparing to see the patient, iozw-ef-zvin patient care, completing clinical documentation, performing a medically appropriate examination, counseling and educating the patient/family/caregiver, ordering medications, tests, or p rocedures, independently interpreting results (not separately reported), communicating results to the patient/family/caregiver, and care coordination (not separately reported). Racquel Cole MD, CPE Hematology and Oncology Services Provided at: [place], [place] Scribe Attestation: This note was scribed [...] under my direction. CC: Griselda Hastings, DO [address] [place] [phone] [address] NEWMAN ENT[address] Dr[address] Nichole ENT Dr. Ibarra CT [facility]. documented in this encounterParkview Health [facility] Hospital05-13-2024 Evaluation note* Author Shilpi Lantigua [facility] Authored October 29, 2023 10:32 am Sooner if needed, the ER if concerns,The above note written by Shilpi Lantigua LPN acting as human recorder, note dictated by Dr. 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 male. Referring Physician: No referring provider defined for this encounter. Primary Care Provider: Griselda Hastings DO Subjective History of Present Ilness: 62 y.o. presents in neurosurgical consultation from [facility] for cervical stenosis.C/o neck pain and LUE pain, numbness and weakness down to hand for 2 years. SawNeurosurgeon at and has had 2 spinal taps with some improvement. Went to [facility] to be assessed for hydrocephal;us and was told he does not have hydrocephalus. He saw Dr. Lara at the [facility]. Also pain behind left eye. No RUE [...] issues. 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 The ROS is as per documentation in the [facility] Objective BSA: 1.93 meters squared Ht 1.722 [...] counseling. Helder Jack MD documented in this encounterGuernsey [facility] Work Phone: 1(493) 163-901004-19-2024 Instructions* Patient Instructions* Adriana Thomas RN - 10/05/2023 9:[address] Jack will present your case at [facility] next Sunday. Someone from the office will call you that day or about your plan. Please call us with any questions or concerns at [phone] opt. 5, opt. 2 For scheduling concerns please call [phone] option 1 documented in this encounterGuernsey [facility] Hospital Work Phone: 1(641) 740-744902-28-2024 Evaluation note* Author Curtis Covarrubias [facility] Authored August 15, 2023 5:19pm The above note written by Serafin Flood acting as human recorder, note dictated by Dr. Griselda Hastings . [facility] Work Phone: 1([phone]) 782-327402-28-2024 Evaluation note* Author Curtis Covarrubias [facility] Authored August 15, 2023 5:19pm The above note written by Serafin Flood acting as human recorder, note dictated by Dr. Griselda Hastings . Author Shilpi Lantigua [facility] Authored October 29, 2023 10:32 am Sooner if needed, the ER if concerns,The above note written by Shilpi Lantigua LPN acting as human recorder, note dictated by Dr. Griselda Hastings [facility] Work Phone: 1(596) 821-728401-15-2024 Evaluation note* Encounter Date Diagnosis Assessment Notes [...] continue to follow with them as scheduled. [employer] Other 12-14-2023 Evaluation note* Encounter Date Diagnosis Assessment Notes Treatment Notes Treatment Clinical Notes May, PAD (peripheral artery disease) (ICD-10 - I73.9) Patient recently had angioplasty for occlusion of right iliac artery that was discovered by commercial attorney. He has been doing well since the [...] work before I provide him that consent. [employer] Other 12-13-2023 Evaluation note* Encounter Date Diagnosis [...] I will see him in 3 months. [employer] Other 11-28-2023 Evaluation note* Encounter Date Diagnosis [...] 3 months Apr, Lightheadedness (ICD-10 - R42) [employer] Other [id number] [facility] Evaluation note* Encounter Date Diagnosis Assessment [...] questions were addressed and consent was obtained. [employer] Other 11-14-2023 Evaluation note* Encounter Date Diagnosis [...] M54.2) The patient is now following with [facility]. He states he has an upcoming cervical epidural scheduled. 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 Apr, PAD (peripheral artery disease) (ICD-10 - I73.9) Arterial studies ordered by commercial attorney indicating peripheral artery disease. The patient does report lower extremity pain and heaviness and I recommend it would be beneficial to consult with a vascular specialist. The patient is in agreement, therefore a referral was initiated. A CTA has been ordered by neurologist , appointment pending [facility] scheduling. Apr, Hyperlipidemia (ICD-10 - [...] vocies understanding. We will continue to monitor. [employer] Other 10-26-2023 Evaluation note* Encounter Date Diagnosis Assessment Notes Treatment Notes Treatment Clinical Notes Mar, Claudication (ICD-10 - I73.9) [employer] Other 10-25-2023 Evaluation note* Encounter Date Diagnosis [...] 4 weeks Mar, Lightheadedness (ICD-10 - R42) [employer] Other 10-24-2023 Evaluation note* Encounter Date Diagnosis Assessment Notes Treatment Notes Treatment Clinical Notes Mar, Elevated blood pressure reading (ICD-10 - R03.0) [employer] Other 09-28-2023 Evaluation note* Encounter Date Diagnosis [...] infection. Feb, Burning sensation (ICD-10 - R20.8) [employer] Other 09-21-2023 Evaluation note* Encounter Date Diagnosis [...] index finger. We will continue to monitor. [employer] Other 07-13-2023 Hospital Discharge instructions Diet Plan/Instructions [...] * Discharge Physician: : Lima Joseph MD ([id number]) - Anesthesiology, Pain Management * Discharge Physician Phone: : [phone] [facility] [address], [facility] [address] Special Plan/Instructions for Discharge from 12/27/2022 [...] sent to the office to be completed. [employer] Other 05-12-2023 History of Present illness Narrative* Ray Doyleca, RT(R) - 10/27/2022 10:45 AM EDT RADIOLOGY [...] with PATIENT DISCHARGED TO: Ambulatory patient, left [place] department area. A Diagnostic radioactive procedure has taken place, with no further precautions necessary other than routine body substance precautions. More information regarding radiation safety can be found usingthis link: [email or web address] SIGNATURE: RT Craig(Neisha) PATIENT NAME: Shantle Melendez DATE: October 27, 2022 TIME: 11:55 AM PAGER/CONTACT #: documented in this encounterParkview Health Bryan Hospital04-07-2023 History of Present illness Narrative* TABITHA Kim) [...] with a Butterfly: 23 gauge. RADIOLOGY DEPARTMENT: ; Exam(s) Completed: Head: IAC/CPA SIGNATURE: RT Julio(Neisha) PATIENT NAME: Shantel Melendez DATE: September 22, 2022 TIME: 2:39 PM documented in this encounterParkview Health Bryan [facility] Miscellaneous Notes* Telephone Encounter - Akash [...] return call ? Yes documented in this encounterPark[facility]-29-[facility]23 Instructions* Patient Instructions* Kelly Perez PA-C [...] perform on same dariusz. documented in this encounterParkview Health [facility] Hospital03-29-2023 Nurse Note* Antonia Tripathi MA - 09/13/2022 10:55 AM EDT Additional intake questions: Has the patient had fever, nausea, vomiting, diarrhea, constipation, fatigue for > 1 week? Yes, diarrhea ( 3 times in last 24 hours), fatigue, and Provider Notified Does the patient have a decreased appetite? No Does patient want to see a Ror Engineer? No (yes to any of above refer [...] By: Antonia Tripathi MA documented in this [facility]03-29-2023 History of Present illness Narrative* Kelly Perez PA-C - 09/13/2022 10:44 AM EDT This note was created using NoteWriter. Subjective Shantel Melendez is a 61 year [...] or pronator drift. Coordination: Romberg sign negative. Etqxnc-Ttua-Kxakya Test normal. Gait: Gait abnormal. Comments: Slightly [...] which included preparing to see the patient, [id number] patient care, completing clinical documentation, obtaining and/or reviewing separately obtained history, performing a medically appropriate examination, counseling and educating the pat ient/family/caregiver, ordering medications, tests, or procedures, communicating with other HCPs (not separately reported), independently interpreting results (not separately reported), communicatingresults to the patient/family/caregiver, and care coordination (not separately reported). documented in this encounterParkview Health Bryan Hospital03-16-2023 Evaluation note* Encounter Date Diagnosis Assessment [...] her mid twenties. He will see the [employer] C[employer] PASTER at Dr. Cadena's office today, and will see the [facility] 09/13/22. I do feel pt needs his FMLA extended until 12/16/22. I encouraged him to continue to follow with these doctors, and we will continue to monitor. [employer] Other 02-14-2023 Evaluation note* Encounter Date Diagnosis [...] pain medication and fever reducers as needed. [employer] Other 01-11-2023 Evaluation note* Encounter Date Diagnosis Assessment Notes Treatment Notes Treatment Clinical Notes Jun, Other complicated headache syndrome (ICD-10 - G44.59) [employer] Other 12-09-2022 Evaluation note* Encounter Date Diagnosis [...] check on him again in 1 month. [employer] Other 10-30-2022 Hospital Discharge instructions Additional Instructions [...] week to see how you are doing. [facility] Work Phone: [phone] Miscellaneous Notes* Telephone Encounter - Racquel Cole MD - 03/27/2022 3:54 PM EDT Good with me * Telephone Encounter - Asya Reynolds RN - 03/27/2022 2:17 PM EDT Informed patient of your recommendations. He states that he is seeing neurology in [place] and they do not feel he needs [...] the weekend about an appointment with a [facility] neurosurgeon. He has not seen you since 10/2021. He states st that time you did not see the need for a neurosurgeon as his tumor wastoo small. Now he all of the sudden has an appointment with this F neurosurgeon and is confused. Can you review and advise as to this appointment with the neurosurgeon. Asya Reynolds RN documented in this encounterParkview Health Bryan Hospital09-29-2022 Miscellaneous Notes* Telephone Encounter - Pamela Nascimento APRN.LUCIO - 03/16/2022 2:51 PM EDT Time Frame: Next available Provider: Intra-axial neurosurgeon & Neuro-Oncology (same day) Referring: Racquel Cole MD Please instruct patient to hand carry/ upload images prior to appt Dx: Low grade glioma Patient: Shantel Melendez Address: Shantel Melendez [id number] [place] [id number] Per Triage: Shantel Melendez is a 61 year old male that requests evaluation of previously diagnosed possible low grade glioma. Patient expectations: Second opinion Tumor Specifics: Location: brain Previous Evaluations: MRI w/wo contrast (10/05/21): 10/05/2021 MRI Brain [facility] Impression: 1. There is T2 [...] 2022 * Telephone Encounter - Ivelisse Guan Tim - 03/16/2022 12:26 PM EDT MD Racquel Gomez MD Future Order Information Expires 10/13/22 Associated Diagnoses Glioma of brain (HCC) [C71.9] Reason for Exam Priority: Routine Dx: Glioma of brain (HCC) [C71.9 (ICD-10-CM)] Order Questions Question Answer [facility] Brain Tumor [facility] Epic access? Yes documented in this encounterParkview Health [facility] Hospital09-29-2022 Evaluation note* Encounter Date Diagnosis Assessment [...] see if this gives him some relief [employer] Other 08-15-2022 Evaluation note* Encounter Date Diagnosis [...] - G93.9) Patient had another MRI at [facility]. We are awaiting for [...] again next week. We are awaiting for [facility] to fax over the consult and MRI results. Jan, Neck pain (ICD-10 - M54.2) The patients neck pain is persistant but the headache has improved with a medication change. Discussed with Dr. Cadena his persistent neck pain, may need MRI of his neck and/or EMG. Due to his multiple other medications did hold off on any pain medications. [employer] Other 07-11-2022 Evaluation note* Encounter Date Diagnosis [...] blood pressure was elevated upon check in. [employer] Other 06-20-2022 Evaluation note* Encounter Date Diagnosis [...] rule out other causes of his symptoms. [employer] Other 05-24-2022 Evaluation note* Encounter Date Diagnosis [...] will complete the necessary medical disability forms. [employer] Other 05-17-2022 Evaluation note* Encounter Date Diagnosis Assessment Notes Treatment Notes Treatment Clinical Notes October, Glioma of brain (ICD-10 - C71.9) Patient has consulted neurosurgeon, Dr. Narayan, and he is now referring on to Dr. [facility]ig[facility] for [facility]. Reviewed consult note [...] this medication. Will continue to follow up [employer] Other 05-12-2022 History of Present illness Narrative* Racquel Cole MD - 10/27/2021 5:05 PM EDT Images from the original note were not included. NAME: Shantel Melendez CLINIC NO.: [id number] DATE OF SERVICE: October 27, 2021 Some elements in this clinic note that are critical to medical decision making have been carefully reviewed and included from a prior clinic note dated: October 13, 2021 Referring Provider: Griselda Hastings DO Additional Clinicians involved in Shantel Melendez's care: Dr Kimberly Nichole ENT, Dr. Ibarra [place] surgery [facility] AMBULATORY TELEPHONE VISIT Shantelkal Melendez has consented to this telephone encounter. [...] 1.8 mm of invasive disease (Stage I, [id number], HPV+ oropharyngeal SCC).resected T1 N1 base of [...] 01/30/19 He had a neck dissection at [facility] HPI: Updated Visit, October [...] COMP METABOLIC PANEL Racquel Cole MD, CPE [place], [place] CC: Griselda Hastings, [address] [address] [address] NEWMAN ENT[address] Dr[address] Nichole ENT Dr. Ibarra [place] [facility]. documented in this encounterParkview Health [facility] Hospital05-09-2022 Evaluation note* Encounter Date Diagnosis Assessment [...] him on to see Dr. Jonny Vigil. [employer] Other 05-04-2022 Miscellaneous Notes* Telephone Encounter - Haily Jovel [facility] - 10/19/2021 12:56 PM EDT [facility] spoke with Lelsee. She states they have received patient records/referral and have patient scheduled to see Dr Narayan on 10/24. Haily Issa * Telephone Encounter - Asya Gramajo [facility] - 10/18/2021 10:34 AM EDT Records faxed. * Telephone Encounter - Haily Jovel [facility] - 10/13/2021 12:24 PM EDT Noelle: Information ready for you. Haily Jovel Pss * Telephone Encounter - Antonia Mcguire - 10/13/2021 10:33 AM EDT Referral to neurosurgery - Dr. Narayan or [facility] Noelle/Layo: Can you please refer patient and follow up? Thanks! Antonia Mcguire documented in this encounterDebra Ville [address]-28-2022 History of Present illness Narrative* Racquel Cole MD - 10/13/2021 10:19 AM EDT Images from the original note were not included. NAME: Shantel Melendez NO.: [id number] DATE OF SERVICE: October 13, 2021 Some elements in this clinic note that are critical to medical decision making have been carefully reviewed and included from a prior clinic note dated:October 14, 2020 Referring Provider: Griselda Hastings, DO Additional Clinicians involved in Shantel Melendez's care: Dr Kimberly Nichole ENT, Dr. Ibarra [place] surgery [facility] CC: Head and neck cancer ASSESSMENT: [...] 1.8 mm of invasive disease (Stage I, [id number], HPV+ oropharyngeal SCC).resected T1 N1 base of [...] 01/30/19 He had a neck dissection at [facility] HPI: Updated Visit, October [...] 2020: Doing well, still smokes, works at [employer]. Reviewed scans and there is no evidence [...] adenopathy is identified. 4. 10/05/2021 MRI Brain [facility] Impression: 1. There is T2 [...] and neck (HCC) Racquel Cole MD, CPE [place], [place] CC: Griselda Hastings, [address] [address] [address] Harris [facility] Dr. Nichole ENT Dr. Ibarra [place] [facility]. documented in this encounterParkview Health [facility] Hospital04-21-2022 Miscellaneous Notes* Telephone Encounter - Racquel [...] steps. Asya Kumar RN documented in this encounterParkview Health Bryan Hospital04-21-2022 History of Present illness Narrative* Hernandez, Marilyn, RN - 10/06/2021 8:00 AM EDT Radiology [...] 06, 2021 TIME: 8:09 AM * Sally Doyle, RT(R) - 10/06/2021 8:00 AM EDT Radiology [...] 06, 2021 8:07 AM documented in this encounterParkview Health Bryan Hospital04-04-2022 Evaluation note* Encounter Date Diagnosis Assessment [...] to continue with monitoring diet and exercise. [employer] Other 03-28-2022 Evaluation note* Encounter Date Diagnosis Assessment Notes Treatment Notes Treatment Clinical Notes Aug, Anxiety and depression (ICD-10 - F41.8) [employer] Other 01-13-2022 Evaluation note* Encounter Date Diagnosis Assessment Notes Treatment Notes Treatment Clinical Notes Jun, Sinusitis (ICD-10 - J32.9) I did prescribe the above medications and work note provided. [employer] Other 01-12-2022 Evaluation note* Encounter Date Diagnosis Assessment Notes Treatment Notes Treatment Clinical Notes Jun, Sinus pressure (ICD-10 - J34.89) Patient advised of negative results. Encouraged him to call if symtpoms persist or worsen, he verbalized understanding. [employer] Other 11-02-2021 Evaluation note* Encounter Date Diagnosis Assessment Notes Treatment Notes Treatment Clinical Notes Apr, Sinus congestion (ICD-10 - R09.81) [employer] Other 10-28-2021 Evaluation note* Encounter Date Diagnosis [...] Encouraged patient to continue with their efforts. [employer] Other 12-01-2016 History general Narrative - Reported* [...] surgery 02/04 19 Hospitalization History see above [employer] Other 12-01-2016 History general Narrative - Reported* [...] 02/04 19 [facility] 11/07/[facility]21 Hospitalization History see above [employer] Other 12-01-2016 History general Narrative - Reported* [...] 02/04 19 Surgical History Sp[facility] 11/07/2021 Hospitalization History see above [employer] Other 12-01-2016 History general Narrative - Reported* [...] dissection 01/2019 Surgical History [facility] 11/07/2021 Hospitalization History see above [employer] Other 12-01-2016 History general Narrative - Reported* [...] dissection 01/2019 Surgical History Sp[facility] 11/07/2021 [facility] 08/2022 Hospitalization History see above [employer] Other 12-01-2016 History general Narrative - Reported* [...] dissection 01/2019 Surgical History Sp[facility] 11/07/2021 [facility] 08/2022 Hospitalization History see above [employer] Other 12-01-2016 History general Narrative - Reported* [...] dissection 01/2019 Surgical History Sp[facility] 11/07/2021 [facility] 08/2022 Surgical History angioplasty right iliac artery 04/2023 Hospitalization History see above [employer] Other 05-19-2009 History of Present illness Narrative* [...] He saw Dr. Ba a neurologist in [facility]. * He describes his vision as seeing 1-1/2 . He describes this does not seem quite to but finding a time lab between moving his eyes and having the visual change. [facility]X-Mpdbsat-XxndklzAscension [facility] Work Phone: chifx complaint+Reason for visit Narrative* Chief Complaint 2 month 2 month f/u Reason for Visit Cervical spondylosis History of COVID-19 Nicotine dependence with current use SCC (squamous cell carcinoma) Nicotine dependence with current use Osteoarthritis cervical spine [facility] Work Phone: Clinical Notes [facility] Evaluation + Plan note [facility] Evaluation noteNo Assessments Information Available [facility] Diagnosis Glioma of brain (HCC)- Primary Malignant neoplasm of brain, unspecified site Lung nodules Other nonspecific abnormal finding of lung field 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) Malignant neoplasm of head, face, and neck documented in this encounter [facility]* Diagnosis 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 Malignant neoplasm of head, face, and neck Lung nodules Other nonspecific abnormal finding of lung field Malignant neoplasm of head, face and neck (HCC) Malignant neoplasm of head, face, and neck documented in this encounter [facility] HospitalEvaluation noteNo OTC PR GroupNort Placed Other Evaluqltaz noteNo assessment information available [facility] Work Phone: Evaluation note* Diagnosis Onset Date Resolution Status Migraine acute [facility] Work Phone: Evaluation note* Diagnosis NPH (normal pressure hydrocephalus) (HCC)- Primary Idiopathic normal pressure hydrocephalus (INPH) [facility] Diagnosis 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HCC)- Primary NPH (normal pressure hydrocephalus) (HCC) Idiopathic normal pressure hydrocephalus (INPH) documented in this encounter [facility]* Diagnosis 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HCC) NPH (normal pressure hydrocephalus) (HCC) Idiopathic normal pressure hydrocephalus (INPH) documented in this encounter [facility]* Diagnosis Onset Date Resolution Status Anxiety and depression acute Essential hypertension acute Hyperlipidemia acute Osteoarthritis cervical spine acute PAD (peripheral artery disease) acute [facility] Work Phone: Evaluation note* Diagnosis 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 [facility] Work Phone: Evaluation note* Diagnosis 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 Griselda Hastings. 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) Malignant neoplasm of head, face, and neck documented in this encounter [facility] [place] [facility]* Diagnosis Malignant neoplasm [...] head and neck documented in this encounter [facility]* Diagnosis Cervical radiculopathy- Primary Brachial neuritis or radiculitis nos Cervical radiculopathy Brachial neuritis or radiculitis nos Senile osteoporosis Senile osteoporosis documented in this encounter [facility] Work Phone: Evaluation note* Diagnosis Cervical radiculopathy- Primary Brachial neuritis or radiculitis nos Status post cervical spinal fusion Arthrodesis status Acute postoperative pain Other acute postoperative pain Muscle spasms of neck documented in this encounter [facility] Work Phone: Evaluation note* Diagnosis Other nerve root and plexus disorders- Primary Cervical paraspinal muscle spasm Spasm of muscle Cervical stenosis of spinal canal Spinal stenosis in cervical region [facility] Diagnosis Cervical radiculopathy- Primary Brachial neuritis or radiculitis nos Occipital neuralgia of left side Balance problem Abnormality of gait documented in this encounter [facility] Work Phone: [phone] note* 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 [facility] Work Phone: [phone] note* 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 [facility] Work Phone: [phone] note* Diagnosis Cervical radiculopathy- Primary Brachial neuritis or radiculitis nos Senile osteoporosis documented in this encounter [facility] Work Phone: [phone] note* Diagnosis Cervical radiculopathy Brachial neuritis or radiculitis nos Senile osteoporosis Cervical radiculopathy Brachial neuritis or radiculitis nos Senile osteoporosis Cervical radiculopathy Brachial neuritis or radiculitis nos Senile osteoporosis documented in this encounter [facility] Work Phone: [phone] note* Diagnosis Cervical radiculopathy Brachial neuritis or radiculitis nos Senile osteoporosis Cervical radiculopathy Brachial neuritis or radiculitis nos Cervical radiculopathy Brachial neuritis or radiculitis nos Senile osteoporosis documented in this encounter [facility] Work Phone: [phone] note* Diagnosis Cervical radiculopathy Brachial neuritis or radiculitis nos Senile osteoporosis Cervical radiculopathy Brachial neuritis or radiculitis nos Cervical radiculopathy Brachial neuritis or radiculitis nos Senile osteoporosis documented in this encounter [facility] Work Phone: [phone] note* Diagnosis Status post cervical spinal fusion- Primary Arthrodesis status documented in this encounter [facility] Work Phone: [phone] note* Diagnosis Nerve root and plexus disorder, unspecified- Primary [facility]* Diagnosis Nerve root and plexus disorder, unspecified- Primary documented [facility] encounter [facility]* Diagnosis Nerve root and plexus disorder, unspecified- Primary documented in this encounter [facility] HealthcareEvaluation note* Diagnosis Status post cervical spinal fusion- Primary Arthrodesis status documented in this encounter [facility] Work Phone: Evaluation note* Diagnosis 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 Malignant neoplasm of head, face, and neck documented in this encounter [facility] [place] [facility]* Diagnosis 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) Malignant neoplasm of head, face, and neck documented in this encounter [facility] [place] [facility]* Diagnosis Nerve root and plexus disorder, unspecified- Primary Acute pain of left shoulder documented in this encounter [facility] HealthcareEvaluation note* Diagnosis Melanocytic nevus of trunk- Primary Benign neoplasm of skin of trunk, except scrotum Seborrheic keratosis Inflamed seborrheic keratosis Actinic keratosis Capillary angioma Nevus, non-neoplastic History of SCC (squamous cell carcinoma) of skin Personal history of other malignant neoplasm of skin documented in this encounter [facility] HealthcareEvaluation note* Diagnosis Nerve root and plexus disorder, unspecified- Primary Acute pain of left shoulder documented in this encounter [facility] HealthcareEvaluation note* Diagnosis Acute pain of right shoulder- Primary Nerve root and plexus disorder, unspecified Acute pain of left shoulder documented in this encounter [facility] HealthcareEvaluation note* Diagnosis Other nerve root and plexus disorders- Primary Acute pain of left shoulder Acute pain of right shoulder documented in this encounter [facility] HealthcareHospital Discharge instructions Additional Instructions Obtain Elsy pot and perform nasal irrigations twice a dayReg[facility] Center Work Phone: Hospital Discharge instructions Additional Instructions Please return to emergency department for any new or worrisome symptoms including any chest pain, shortness of breath, vomiting, fever. Take all antibiotics even if you start feeling better.[facility] Work Phone: Hospital Discharge instructions Additional Instructions Push fluids Zofran for nausea vomiting Follow-up with the GI specialist as discussed for possible colonoscopy Return here if any problems persist or worsen If you are able to collect a urine specimen take it to the lab.[facility] Work Phone: Reason for referral [...] W IVCON CAT SCAN OF CHEST CONTRAST Raqcuel Cole MD [address] [place] [address] [place] [address] [place] [address] Referral ID Status Reason Start Date Expiration Date V isits Requested Visits Authorized [id number] Closed Auto-Generate d Referral 09/23/2021 11/22/2021 1 [...] CAT OF NECK TISSUE Racquel Cole MD [address] [place] [address] [place] [address] [place] [address] Referral ID Status Reason Start Date Expiration Date V isits Requested Visits Authorized [id number] Closed Auto-Generate d Referral 09/23/2021 11/22/2021 1 1 [facility]narrative)No reason for referral information availableHolzer Health System Work Phone: Reason for visit Narrative* Auth/Cert Specialty Diagnoses / Procedures Referred By Roverto moraes Referred To Contact Diagnoses Cervical radiculopathy Senile osteoporosis Cervical radiculopathy [M54.12] Senile osteoporosis [M81.0] Procedures MO ARTHRD ANT INTERBODY DECOMPRESS CERVICAL BELW C2 MO ARTHRD ANT INTERBODY DECOMPRESS CERVICAL BELW C2 MO ARTHRD ANT INTERDY CERVCL BELW C2 EA ADDL NTRSPC MO ALLOGRAFT FOR SPINE SURGERY ONLY STRUCTURAL MO MICROSURG TQS REQ USE OPERATING MICROSCOPE Fusion Spine Anterior Cervical and Discectomy C5-6, C6-7 Doretha Harris MD [address] [facility], [address] [place] [address] Phone: tel: fax: [facility] [address] [place] [address] [place] [address] fax: Referral ID Status Reason Start Date Expiration Date Visits Re quested Visits Authorized [id number] 1 1 [facility] Work Phone: Reason for visit Narrative* Injection (Routine) - Closed Specialty Diagnoses / Procedures Referred By Contac t Referred To Contact Neurology Diagnoses Acute pain of left shoulder Procedures MO OFFICE/OUTPATIENT NEW HIGH MDM 60 MINUTES Oziel Cadena MD [address] [facility] [address] [place] [address] Phone: tel: fax: Oziel Cadena MD [address] [place] [address] Phone: tel: fax: Referral ID Status Reason Start Date Expiration Date V isits Requested Visits Authorized [id number] Closed Perform Procedure 11/12/2024 05/18/2025 1 1 [facility] Healthcare Summary Purpose Family History Unknown Family Member [...] mother Heart disease Unknown Unknown Advance Directives Advance Directive Response Recorded Date/ Time Advance Directives No December 10 8:00pm Advance Directive Response Recorded Date/ Time Advance Directives No December 10 7:00pm Advance Directive Response Recorded Date/ Time Advance Directives No July 07, 2023 8:27am Advance Directive Response Recorded Date/ Time Advance Directives No July 07, 2023 9:27am Documents on File Type Date Recorded 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 Living Will 10/05/2023 9:39 AM Documents on File Type Date Recorded 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 Living Will 10/05/2023 9:39 AM [...] body aches September 20 10:51am abd pain Celia 21st, 2025 2:0 2pm Diarrhea spec drop/ e78.5 z12.5 [...] tember 2024 10:28am PAD (peripheral artery disease) [facility] r 2024 10:28am Screening for prostate cancer [...] r 2024 10:28am S/P cervical discectomy February 19 025 10:28am Screening for prostate cancer February 19, 2025 10:28am Assessments No Assessments Information Available Reason for Referral Specialty Diagnoses / Procedures Referred By Contac t Referred To Contact Neurosurgery Diagnoses Glioma of brain (HCC) Procedures CONSULT TO NEUROSURGERY OFFICE/OUTPATIENT [facility] MDM 60-74 MINUTES Racquel Cole MD [address] [place] [address] [place] [address] Referral ID Status Reason Start Date Expiration Date Visits Requested Visits Authorized [id number] Authorized PCP Requested Referral 10/13/2021 10/13/2022 1 1 Specialty Diagnoses / Procedures Referred By Contac t Referred To Contact CT IMAGING Diagnoses Lung nodules Procedures CT CHEST W IVCON DIAGNOSTIC COMPUTED TOMOGRAPHY THORAX W/CONTRAST Racquel Cole MD [address] [place] [address] [place] [address] Ct Imaging Referral ID Status Reason Start Date Expiration Date Visits Requested Visits Authorized [id number] Pending Review Auto-Generat ed Referral 10/30/2022 11/29/2022 1 1 Specialty Diagnoses / Procedures Referred By Contac t Referred To Contact CT IMAGING Diagnoses Malignant neoplasm of head, face and neck (HCC) Procedures CT NECK SOFT TISSUE W IVCON CT SOFT TISSUE NECK W/CONTRAST MATERIAL Racquel Cole MD [address] [facility] [place] [address] Ct Imaging Referral ID Status Reason Start Date Expiration Date Visits Requested Visits Authorized [id number] Pending Review Auto-Generat ed Referral 10/30/2022 11/29/2022 1 1 Reason *FU 10/31 Evaluate and Treat Brainstem Lesion 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) Referral Organization [facility] urosurgery Referring Provider First Name Sheng Referring Provider Last Name Wyatt Referring Provider Specialty Neurosurger y Referred Organization [facility] Referred Provider Jonny Vigil [place] Address [address] [facility] [address] [place] Referred Provider Specialty Neurological Surgery Referral Priority Routine General Notes Linnea Alvarado 022 02:09:54 PM >Received and fax referral today Reason consult and treat (p t is willing to see him in [place], if not then will see at [facility]) 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) Diagnosis 2 Cervical pain (neck) (M54.2) Diagnosis 3 Pressure in head (R5 1.9) Referral Organization [facility] [place] Referring Provider First Name Griselda Referring Provider Last Name Darling Referring Provider Specialty Family Prac henny Referred Organization [facility] Referred Provider Oziel Cadena Referred Address [address] [place], [place],[address] Referral Priority Routine Specialty Diagnoses / Procedures Referred By Roverto moraes Referred To Contact MR IMAGING Diagnoses 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HCC) Procedures MRI BRAIN WO/W IVCON MRI BRAIN BRAIN STEM W/O W/CONTRAST MATERIAL Kelly Perez, BILL[address] [place] [address] Mr Imaging Referral ID Status Reason Start Date Expiration Date Visits Requested Visits Authorized [id number] Authorized Auto-Generat ed Referral 09/20/2022 10/20/2023 1 1 Referral ID Status Reason Start Date Expiration Date V isits Requested Visits Authorized [id number] Closed Auto-Generate d Referral 09/20/2022 10/20/2023 1 1 Reason pt requesting n ot Dr. Verma, but can see other providers from that group evaluate and treat tinnitus and balance issues Diagnosis 1 Tinnitus of both ear s (H93.13) Diagnosis 2 Balance disorder (R2 6.89) Referral Organization [facility] Cardiology Referring Provider First Name Lilliam Referring Provider Last Name Kamla Referring Provider Specialty Cardiovascu lar Disease Referred Organization [facility] Referred Provider Manuela Ballesteros Referred Address ,[place], [place],[address] Referred Provider Specialty Ear, Nose an d Throat Referral Priority Routine General Notes Yessica Brown 12:40:36 PM >received today, pt has medicaid insurance, will send to Dr. Ballesteros, attachments made, waiting for notes to be locked Reason consult and treat Diagnosis 1 PAD (peripheral arnie ry disease) (I73.9) Referral Organization [facility] [place] Referring Provider First Name Griselda Referring Provider Last Name Andreas Referring Provider Specialty Family Prac henny Referred Organization [facility] Vascular Surge ry Referred Provider Filipe Hess Referred Address [address] [place] [address],[facility] [address],[place], [place],[address] Referred Provider Specialty Vascular Abdirahman yvon Referral Priority Routine General Notes Linnea Alvarado 023 11:58:24 AM >Received today and sent P2P Specialty Diagnoses / Procedures Referred By Roverto t Referred To Contact CT IMAGING Diagnoses 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) Procedures CT CHEST W IVCON DIAGNOSTIC COMPUTED TOMOGRAPHY THORAX W/CONTRAST Racquel Cole MD [address] [place] [address] [place] [address] [place] [address] Referral ID Status Reason Start Date Expiration Date Visits Requested Visits Authorized [id number] Authorized Auto-Generat ed Referral 11/01/2024 12/01/2024 1 1 Specialty Diagnoses / Procedures Referred By Contac t Referred To Contact CT IMAGING Diagnoses 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) Procedures CT NECK SOFT TISSUE W IVCON CT SOFT TISSUE NECK W/CONTRAST MATERIAL Racquel Cole MD [address] [place] [address] [place] [address] [place] [address] Referral ID Status Reason Start Date Expiration Date Visits Requested Visits Authorized [id number] Authorized Auto-Generat ed Referral 11/01/2024 12/01/2024 1 1 Referral ID Status Reason Start Date Expiration Date V isits Requested Visits Authorized [id number] Closed Auto-Generate d Referral 10/26/2023 06/17/2024 1 1 Referral ID Status Reason Start Date Expiration Date V isits Requested Visits Authorized [id number] Closed Auto-Generate d Referral 10/26/2023 06/17/2024 1 1 Specialty Diagnoses / Procedures Referred By Contac t Referred To Contact CT IMAGING Diagnoses Lung nodules Procedures CT CHEST W IVCON DIAGNOSTIC COMPUTED TOMOGRAPHY THORAX W/CONTRAST Racquel Cole MD [address] [facility] [address] Ct Imaging [place] [address] Referral ID Status Reason Start Date Expiration Date V isits Requested Visits Authorized [id number] Closed Auto-Generate d Referral 10/30/2022 11/29/2022 1 1 Specialty Diagnoses / Procedures Referred By Contac t Referred To Contact CT IMAGING Diagnoses Malignant neoplasm of head, face and neck (HCC) Procedures CT NECK SOFT TISSUE W IVCON CT SOFT TISSUE NECK W/CONTRAST MATERIAL Racquel Cole MD [address] [facility] [address] Ct Imaging [place] [address] Referral ID Status Reason Start Date Expiration Date V isits Requested Visits Authorized [id number] Closed Auto-Generate d Referral 10/30/2022 11/29/2022 1 1 Specialty Diagnoses / Procedures Referred By Contac t Referred To Contact Radiology 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 [address] [place] [id number] Referral ID Status Reason Start Date Expiration Date Visits Requested Visits Authorized [id number] Pending Review Perform Procedure 12/13/2023 12/12/2024 1 1 Specialty Diagnoses / Procedures Referred By Contac t Referred To Contact Radiology 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 tumor perfusion protocol w and wo IV contrast Shimon Heaton PA-C [id number] [place] [id number] Referral ID Status Reason Start Date Expiration Date Visits Requested Visits Authorized [id number] Authorized Perform Procedure 10/24/2023 10/23/2024 1 1 Specialty Diagnoses / Procedures Referred By Contac t Referred To Contact Radiology Diagnoses Cervical radiculopathy Procedures XR cervical spine complete 6+ views Doretha Harris MD [address] [facility], [address] [address] Referral ID Status Reason Start Date Expiration Date Visits Requested Visits Authorized [id number] Authorized Perform Procedure 01/03/2024 01/02/2025 1 1 Specialty Diagnoses / Procedures Referred By Contac t Referred To Contact Radiology Diagnoses Senile osteoporosis Procedures XR DEXA bone density axial skeleton w VFA Doretha Harris MD [address] [facility], [address] [address] Referral ID Status Reason Start Date Expiration Date Visits Requested Visits Authorized [id number] Pending Review Perform Procedure 01/03/2024 01/02/2025 1 1 Specialty Diagnoses / Procedures Referred By Contac t Referred To Contact Diagnoses Cervical radiculopathy Senile osteoporosis Procedures ECG 12 lead Doretha Harris MD [address] [facility], [address] [address] Referral ID Status Reason Start Date Expiration Date V isits Requested Visits Authorized [id number] Authorized 01/09/2024 01/08/2025 1 1 Specialty Diagnoses / Procedures Referred By Contac t Referred To Contact Radiology Diagnoses Cervical radiculopathy Procedures XR DEXA bone density Doretha Harris MD [address] [facility], [address] [address] Referral ID Status Reason Start Date Expiration Date Visits Requested Visits Authorized [id number] Authorized Perform Procedure 01/08/2024 01/07/2025 1 1 [...] section and content) DATE CREATED AUTHOR 08/01/2019 [facility] DATE CREATED AUTHOR AUTHOR'S ORGANIZ ATION 11/05/2021 [employer] DATE CREATED AUTHOR AUTHOR'S ORGANIZ ATION 01/19/2022 [facility] DATE CREATED AUTHOR AUTHOR'S ORGANIZ ATION 10/02/2022 [facility] DATE CREATED AUTHOR AUTHOR'S ORGANIZ ATION 12/25/2022 [facility] DATE CREATED AUTHOR AUTHOR'S ORGANIZ ATION 08/03/2023 [facility] DATE CREATED AUTHOR AUTHOR'S ORGANIZ ATION 02/13/2024 [facility] DATE CREATED AUTHOR AUTHOR'S ORGANIZ ATION 10/27/2024 [facility] DATE CREATED AUTHOR AUTHOR'S ORGANIZ ATION 11/13/2024 [facility] DATE CREATED AUTHOR AUTHOR'S ORGANIZ ATION 01/01/2025 [facility] DATE CREATED AUTHOR AUTHOR'S ORGANIZ ATION 01/03/2025 [facility] DATE CREATED AUTHOR AUTHOR'S ORGANIZ ATION 02/14/2025 [facility] DATE CREATED AUTHOR AUTHOR'S ORGANIZ ATION 03/21/2025 [facility] DATE CREATED AUTHOR AUTHOR'S ORGANIZ ATION 03/23/2025 [facility] EPIC DATE CREATED AUTHOR AUTHOR'S ORGANIZ ATION 03/26/2025 [facility] Source Comments (unrecognize d section and content) In the event this informatio n is protected by the Federal Confidentiality of Alcohol and Drug Abuse Patient Records regulations: The Federal rules restrict any use of the information to criminally investigate or prosecute any alcohol or drug abuse patient.[facility] the event this information is protected by the Federal Confidentiality of Alcohol and Drug Abuse Patient Records regulations: The Federal rules restrict any use of the information to criminally investigate or prosecute any alcohol or drug abuse patient.[facility] Hospital[facility] the event this information is protected by the Federal Confidentiality of Alcohol and Drug Abuse Patient Records regulations: The Federal rules restrict any use of the information to criminally investigate or prosecute any alcohol or drug abuse patient.[facility] Hospital[facility] the event this information is protected by the Federal Confidentiality of Alcohol and Drug Abuse Patient Records regulations: The Federal rules restrict any use of the information to criminally investigate or prosecute any alcohol or drug abuse patient.[facility] Hospital[facility] the event this information is protected by the Federal Confidentiality of Alcohol and Drug Abuse Patient Records regulations: The Federal rules restrict any use of the information to criminally investigate or prosecute any alcohol or drug abuse patient.[facility] Hospital[facility] the event this information is protected by the Federal Confidentiality of Alcohol and Drug Abuse Patient Records regulations: The Federal rules restrict any use of the information to criminally investigate or prosecute any alcohol or drug abuse patient.[facility] Hospital[facility] the event this information is protected by the Federal Confidentiality of Alcohol and Drug Abuse Patient Records regulations: The Federal rules restrict any use of the information to criminally investigate or prosecute any alcohol or drug abuse patient.[facility] Hospital[facility] the event this information is protected by the Federal Confidentiality of Alcohol and Drug Abuse Patient Records regulations: The Federal rules restrict any use of the information to criminally investigate or prosecute any alcohol or drug abuse patient.[facility] Hospital[facility] the event this information is protected by the Federal Confidentiality of Alcohol and Drug Abuse Patient Records regulations: The Federal rules restrict any use of the information to criminally investigate or prosecute any alcohol or drug abuse patient.[facility] Hospital[facility] the event this information is protected by the Federal Confidentiality of Alcohol and Drug Abuse Patient Records regulations: The Federal rules restrict any use of the information to criminally investigate or prosecute any alcohol or drug abuse patient.[facility] Hospital[facility] the event this information is protected by the Federal Confidentiality of Alcohol and Drug Abuse Patient Records regulations: The Federal rules restrict any use of the information to criminally investigate or prosecute any alcohol or drug abuse patient.[facility] Hospital[facility] the event this information is protected by the Federal Confidentiality of Alcohol and Drug Abuse Patient Records regulations: The Federal rules restrict any use of the information to criminally investigate or prosecute any alcohol or drug abuse patient.[facility] Hospital[facility] the event this information is protected by the Federal Confidentiality of Alcohol and Drug Abuse Patient Records regulations: The Federal rules restrict any use of the information to criminally investigate or prosecute any alcohol or drug abuse patient.[facility] Hospital[facility] the event this information is protected by the Federal Confidentiality of Alcohol and Drug Abuse Patient Records regulations: The Federal rules restrict any use of the information to criminally investigate or prosecute any alcohol or drug abuse patient.[facility] HospitalIn the event this information is protected by the Federal Confidentiality of Alcohol and Drug Abuse Patient Records regulations: The Federal rules restrict any use of the information to criminally investigate or prosecute any alcohol or drug abuse patient.[facility] Reason for Visit (unrecogniz ed section and content) Reason Comments Results Reason Comments Head and Neck Cancer Specialty Diagnoses / Procedures Referred By Contac t Referred To Contact Hematology/Oncology / HEMATOLOGY/ONCOLOGY Diagnoses Follow-up examination 1 year follow up LABS WITH CT Procedures EST PATIENT Racquel Cole MD [facility] [place] [address] Racquel Cole MD [facility] [place] [address] Referral ID Status Reason Start Date Expiration Date Visits Re quested Visits Authorized [id number] Closed 10/13/2021 06/17/2022 1 1 Reason Comments Referral Information Neurosurgery Reason Comments Established Patient Specialty Diagnoses / Procedures Referred By Contac t Referred To Contact Hematology/Oncology / HEMATOLOGY/ONCOLOGY Diagnoses 2 week phone follow up [phone] Procedures PHYS/QHP TELEPHONE EVALUATION 5-10 MIN PROVIDER SPECIALTY PHONE CALL Racquel Cole MD [address] [place] [address] [place] [address] Racquel Cole MD [address] [place] [address] [place] [address] Referral ID Status Reason Start Date Expiration Date Visits Re quested Visits Authorized [id number] Closed 10/27/2021 06/17/2022 1 1 Reason Comments Triage Internal Referral--o ld Reason Comments Appointment Reason Comments New Patient Specialty Diagnoses / Procedures Referred By Contac t Referred To Contact Neurology / BRAIN TUMOR Diagnoses Hydrocephalus (HCC) Hydrocephalus Procedures OFFICE/OUTPATIENT NEW MODERATE MDM 45-59 MINUTES NEW SURGICAL Oziel Cadena MD [address] [facility] [address] [address] Kelly Perez PA-C [address] [place] [address] Referral ID Status Reason Start Date Expiration Date Visits Re quested Visits Authorized [id number] Closed 09/13/2022 06/17/2023 1 1 Reason Comments Patient Question Reason Comments Radiology MRI Specialty Diagnoses / Procedures Referred By Contac t Referred To Contact MR IMAGING Diagnoses 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HCC) Procedures MRI BRAIN WO/W IVCON MRI BRAIN BRAIN STEM W/O W/CONTRAST MATERIAL Kelly Perez PA-C [address] [place] [address] Mr Imaging Referral ID Status Reason Start Date Expiration Date V isits Requested Visits Authorized [id number] Closed Auto-Generate d Referral 09/20/2022 10/20/2023 1 [...] TISSUE NECK W/CONTRAST MATERIAL Racquel Cole MD [address] [place] [address] [place] [address] Ct Imaging [facility] Referral ID Status Reason Start Date Expiration Date V isits Requested Visits Authorized [id number] Closed Auto-Generate d Referral 10/26/2023 06/17/2024 1 1 Specialty Diagnoses / Procedures Referred By Contac t Referred To Contact CT IMAGING Diagnoses Lung nodules Procedures CT CHEST W IVCON DIAGNOSTIC COMPUTED TOMOGRAPHY THORAX W/CONTRAST Racquel Cole MD [address] [place] [address] [place] [address] Ct Imaging [place] [address] Referral ID Status Reason Start Date Expiration Date V isits Requested Visits Authorized [id number] Closed Auto-Generate d Referral 10/30/2022 11/29/2022 1 1 Specialty Diagnoses / Procedures Referred By Contac t Referred To Contact CT IMAGING Diagnoses Malignant neoplasm of head, face and neck (HCC) Lung nodules 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) Localized swelling, mass or lump of neck Procedures CT NECK SOFT TISSUE W IVCON CONTRAST CAT OF NECK TISSUE Racquel Cole MD [address] [place] [address] [place] [address] Ct Imaging [facility] Referral ID Status Reason Start Date Expiration Date V isits Requested Visits Authorized [id number] Closed Auto-Generate d Referral 09/23/2021 11/22/2021 1 1 Reason Comments Neck Pain Tingling Numbness Specialty Diagnoses / Procedures Referred By Contac t Referred To Contact Radiology 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 tumor perfusion protocol w and wo IV contrast Shimon Heaton PA-C [id number] [place] [address] Referral ID Status Reason Start Date Expiration Date Visits Requested Visits Authorized [id number] Authorized Perform Procedure 10/24/2023 10/23/2024 1 1 Reason Comments Neck Pain Specialty Diagnoses / Procedures Referred By Contac t Referred To Contact Diagnoses Cervical radiculopathy Senile osteoporosis Procedures ECG 12 lead Doretha Harris MD [address] [facility], [address] [address] Referral ID Status Reason Start Date Expiration Date V isits Requested Visits Authorized [id number] Authorized 01/09/2024 01/08/2025 1 1 Specialty Diagnoses / Procedures Referred By Contac t Referred To Contact Radiology Diagnoses Cervical radiculopathy Procedures XR cervical spine complete 6+ views Doretha Harris MD [address] [facility], [address] [address] Referral ID Status Reason Start Date Expiration Date Visits Requested Visits Authorized [id number] Authorized Perform Procedure 01/03/2024 01/02/2025 1 1 Specialty Diagnoses / Procedures Referred By Contac t Referred To Contact Radiology Diagnoses Cervical radiculopathy Procedures XR DEXA bone density Doretha Harris MD [address] [facility], [address] [address] Referral ID Status Reason Start Date Expiration Date Visits Requested Visits Authorized [id number] Authorized Perform Procedure 01/08/2024 01/07/2025 1 1 [...] COMPUTED TOMOGRAPHY THORAX W/CONTRAST Racquel Cole MD [address] [place] [address] [place] [address] Phone: tel: fax: [place] [address] Referral ID Status Reason Start Date Expiration Date V isits Requested Visits Authorized [id number] Closed Auto-Generate d Referral 11/01/2024 12/01/2024 1 1 Reason Comments Skin Check Care Teams (unrecognized sec tion and content) Hand Ii Cutter Relationship Specialty Start Date End Date Griselda Hastings [address] [place] [address], [place] [address] PCP - General Family Practice 11/20/18 Griselda Hastings [address] [place] [address], [place] [address] Referring Family Practice 11/20/18 Hand Ii Cutter Relationship Specialty Start Date End Date Griselda Hastings [address] [place] [address], [place] [address] PCP - General Family Practice 11/20/18 Griselda Hastings [address] [place] [address], [place] [address] Referring Family Practice 11/20/18 Hand Ii Cutter Relationship Specialty Start Date End Date Griselda Hastings [address] [place] [address], [id number] PCP - General Family Practice 11/20/18 Griselda Hastings [address] [place] [address], [id number] Referring Family Practice 11/20/18 Hand Ii Cutter Relationship Specialty Start Date End Date Griselda Hastings [address] [place] [address], [place] [address] PCP - General Family Practice 11/20/18 Griselda Hastings [address] [place] [address], [place] [address] Referring Family Practice 11/20/18 Hand Ii Cutter Relationship Specialty Start Date End Date Griselda Hastings [address] [place] [address], [place] [address] PCP - General Family Medicine 11/20/18 Griselda Hastings [address] [place] [address], [place] [address] Referring Family Medicine 11/20/18 Hand Ii Cutter Relationship Specialty Start Date End Date Griselda Hastings [address] [place], [place] [id number] PCP - General Family Medicine 11/20/18 Griselda Hastings [address] [place] [address], [place] [address] Referring Family Medicine 11/20/18 Team Status: Inactive Member Role Status Griselda Hastings , DO Primary Care Provider Active Daniel Gaytan APRN Emergency Provider Active Team Status: Active Member Role Status Griselda Hastings , DO Primary Care Provider Active Oziel Cadena MD Attending Provider Active Team Status: Active Member Role Status Griselda Hastings , DO Primary Care Provider Active Team Status: Inactive Member Role Status Griselda [place] , DO Primary Care Provider Active Loi Wong Jr, MD Emergency Provider Active Team Status: Active Member Role Status Griselda [place] , DO Primary Care Provider Active Nikole Mota APRN [employer] CLIPPINGS CUTTER [employer] PASTER-C Attending Provider A ctive Team Status: Inactive Member Role Status Griselda Hastings , DO Primary Care Provider Active Oziel Cadena MD Attending Provider Active Team Status: Inactive Member Role Status Griseldakeith Hastings , DO Primary Care Provider Active Nikole Moat APRN [employer]TER [employer] PASTER-C Attending Provider A ctive Hand Ii Cutter Relationship Specialty Start Date End Date Griselda Hastings [address] [place], [place] [phone] PCP - General Family Medicine 11/20/18 Griselda Hastings [address] [place] [phone] Referring Family Medicine 11/20/18 Oziel Cadena MD [address] [facility] [place] [address] Referring Neurology 08/18/22 Hand Ii Cutter Relationship Specialty Start Date End Date Griselda Hastings [address] [place] [address], [place] [address] PCP - General Family Medicine 11/20/18 Griselda Hastings [address] [place] [address], [place] [address] Referring Family Medicine 11/20/18 Oziel Cadena MD [address] [facility] [address] [facility] [place] [address] Referring Neurology 08/18/22 Hand Ii Cutter Relationship Specialty Start Date End Date Griselda Hastings [address] [place] [address], [place] [address] PCP - General Family Medicine 11/20/18 Griselda Hastings [address] [place] [address], [place] [address] Referring Family Medicine 11/20/18 Oziel Cadnea MD [address] [facility] [address] [facility] [place] [address] Referring Neurology 08/18/22 Team Status: Inactive Member Role Status Dates Griselda Hastings DO Primary Care Provider, Attending Provi caron Active Team Status: Inactive Member Role Status Dates Griselda Hastings , DO Primary Care Provider Active Lima [...] Active Ruddy Harvey MD Attending Provider Active Hand Ii Cutter Relationship Specialty Start Date End Date Griselda Hastings DO [address] [place] [address], [place] [address] PCP - General Family Medicine 02/13/23 Hand Ii Cutter Relationship Specialty Start Date End Date Griselda Hastings DO [address] [place] [address] PCP - General Family Medicine 02/13/23 Team Status: Inactive Member Role Status Poornima Hastings DO Primary Care Provider Active Sta rt: May 04, 2023 End: May 04, 2023 Nikole Mota APRN [employer] PASTER-C Attending Provider Active Start: April End: May [...] September 05, 2023 End: September 05, 2023 Hand Ii Cutter Relationship Specialty Start Date End Date Griselda Hastings DO PCP - General 01/03/19 Hand Ii Cutter Relationship Specialty Start Date End Date Griselda Hastings DO [facility] 1 [place] [address] PCP - General 01/03/19 [place] [address] [place] [address] Consulting Physician Hematology and Oncology 10/05/23 Team [...] October 29, 2023 End: October 29, 2023 Hand Ii Cutter Relationship Specialty Start Date End Date Griselda Hastings [address] [place] [phone] PCP - General Family Medicine 11/20/18 Griselda Hastings [address] [place] [phone] Referring Family Medicine 11/20/18 Oziel Cadena MD [address] [facility] [address] [place] [address], [place] [phone] Referring Neurology 08/18/22 Team Status: Active Member Role Status Dates Lilliam Cason MD Turkey Roll Maker Active Griselda Hastings DO Primary Care Provider Active Team Status: Inactive Member Role Status Dates Griselda Hastings DO Primary Care Provide r, Attending Provider Active Start: December 03, 2023 End: December 03, 2023 Team Status: Inactive Member Role Status Dates Griselda Hastings DO Primary Care Provide r, Attending Provider Active Start: January 31, 2024 End: January 31, 2024 Hand Ii Cutter Relationship Specialty Start Date End Date Griselda Hastings [address] [place] [phone] PCP - General Family Medicine 11/20/18 Griselda Hastings [address] [place] [phone] Referring Family Medicine 11/20/18 Oziel Cadena MD [address] [place], [place] [address] [facility] [place] [address] Referring Neurology 08/18/22 Hand Ii Cutter Relationship Specialty Start Date End Date Griselda Hastings [address] [place] [phone] PCP - General Family Medicine 11/20/18 Griselda Hastings [address] [place] [phone] Referring Family Medicine 11/20/18 Oziel Cadena MD [address] [facility] [address] [id number] Referring Neurology 08/18/22 Hand Ii Cutter Relationship Specialty Start Date End Date Griselda Hastings [address] [place], [place] [phone] PCP - General Family Medicine 11/20/18 Griselda Hastings [address] [place] [phone] Referring Family Medicine 11/20/18 Hand Ii Cutter Relationship Specialty Start Date End Date Griselda Hastings DO [address] [place] [address] [phone] PCP - General 01/03/19 [place] [address] [place] [address] Consulting Physician Hematology and Oncology 10/05/23 Solomon Narayanan PA-C [address] [facility], [address] [address] Physician Investigation Division Captain Neurosurgery 12/12/23 Team Status: Inactive Member Role Status Dates Griselda Hastings DO Primary Care Jung driver Attending Provider Active Start: April 01, 2024 End: April 01, 2024 Hand Ii Cutter Relationship Specialty Start Date End Date Griselda Hastings DO [address] [place] [address] PCP - General 01/03/19 [place] [address] [place] [address] Consulting Physician Hematology and Oncology 10/05/23 Solomon Narayanan PA-C [address] [facility], [address] [address] Physician Investigation Division Captain Neurosurgery 12/12/23 Hand Ii Cutter Relationship Specialty Start Date End Date Griselda Hastings DO [address] [place] [address] PCP - General 01/03/19 [place] [address] [place] [address] Consulting Physician Hematology and Oncology 10/05/23 Solomon Narayanan PA-C [address] [place] [address] Physician Investigation Division Captain Neurosurgery 12/12/23 Team Status: Inactive Member Role Status Dates Griselda Hastings DO Primary Care Provider Active Sta rt: April 28, 2024 End: April 28, 2024 Lilliam Cason MD Attending Provider Active Sta rt: April 28, 2024 End: April 28, 2024 Hand Ii Cutter Relationship Specialty Start Date End Date Griselda Hastings DO [address] [place] [address] PCP - General Family Medicine 02/13/23 Hand Ii Cutter Relationship Specialty Start Date End Date Griselda Hastings DO [address] [place] [facility] [place] [address] PCP - General Family Medicine 02/13/23 Hand Ii Cutter Relationship Specialty Start Date End Date Griselda Hastings DO [address] [place] [facility] [place] [address] PCP - General 01/03/19 [place] [address] [place] [address] Consulting Physician Hematology and Oncology 10/05/23 Solomon Narayanan PA-C [address] [facility], [address] [address] Physician Investigation Division Captain Neurosurgery 12/12/23 Hand Ii Cutter Relationship Specialty Start Date End Date Griselda Hastings DO [address] [place] [address] PCP - General 01/03/19 [place] [address] [place] [address] Consulting Physician Hematology and Oncology 10/05/23 Solomon Narayanan PA-C [address] [facility], [address] [address] Physician Investigation Division Captain Neurosurgery 12/12/23 Hand Ii Cutter Relationship Specialty Start Date End Date Griselda Hastings DO [address] [place] [facility] [place] [address] PCP - General 01/03/19 [place] [address] [place] [address] Consulting Physician Hematology and Oncology 10/05/23 Solomon Narayanan PA-C [address] [facility], [address] [address] Physician Investigation Division Captain Neurosurgery 12/12/23 Hand Ii Cutter Relationship Specialty Start Date End Date Griselda Hastings DO [address] [place] [address] PCP - General 01/03/19 [place] [address] [place] [address] Consulting Physician Hematology and Oncology 10/05/23 Solomon Narayanan PA-C [address] [facility], [address] [address] Physician Investigation Division Captain Neurosurgery 12/12/23 Hand Ii Cutter Relationship Specialty Start Date End Date Griselda Hastings DO [facility] [place] [address] PCP - General 01/03/19 [place] [address] [place] [address] Consulting Physician Hematology and Oncology 10/05/23 Solomon Narayanan PA-C [address] [facility], [address] [address] Physician Investigation Division Captain Neurosurgery 12/12/23 Hand Ii Cutter Relationship Specialty Start Date End Date Griselda Hastings DO [address] [place] [address] PCP - General 01/03/19 [place] [address] [place] [address] Consulting Physician Hematology and Oncology 10/05/23 Solomon Narayanan PA-C [address] [facility], [address] [place] [address] Physician Investigation Division Captain Neurosurgery 12/12/23 Team Status: Inactive Member Role Status Dates Griselda Hastings DO Primary Care Provider Active Sta rt: June 24, 2024 End: June 24, 2024 Solomon Narayanan PA-C Attending Provider Active St art: June 24, 2024 End: June 24, 2024 Hand Ii Cutter Relationship Specialty Start Date End Date Griselda Hastings DO [address] [place] [address] PCP - General 01/03/19 [place] [address] [place] [address] Consulting Physician Hematology and Oncology 10/05/23 Solomon Narayanan PA-C [address] [place] [address] Physician Investigation Division Captain Neurosurgery 12/12/23 Hand Ii Cutter Relationship Specialty Start Date End Date Griselda Hastings DO [address] [place] [phone] PCP - General Family Medicine 02/13/23 Team Status: Inactive Member Role Status Dates Griselda Hastings DO Primary Care Jung r, Attending Provider Active Start: July 03, 2024 End: July 03, 2024 Hand Ii Cutter Relationship Specialty Start Date End Date Griselda Hastings DO [address] [place] [phone] PCP - General Family Medicine 02/13/23 Hand Ii Cutter Relationship Specialty Start Date End Date Griselda Hastings DO [address] [place] [phone] PCP - General Family Medicine 02/13/23 Team Status: Active Member Role Status Dates Griselda Hastings DO Primary Care Provider Active Sta rt: September 11, 2024 Ruddy Harvey MD Attending Provider Active Start: September 11, 2024 Team Status: Inactive Member Role Status Dates Griselda Hastings DO Primary Care Provider Active Sta rt: September 11, 2024 End: September 11, 2024 Keysha Guy PR[employer] CLIPPINGS CUTTER [employer] PASTER-C Attending Provider Active Start: September 11, 2024 End: September 11, 2024 Hand Ii Cutter Relationship Specialty Start Date End Date Griselda Hastings DO [address] [place] [address] PCP - General Family Medicine [...] September 20, 2024 End: September 20, 2024 Hand Ii Cutter Relationship Specialty Start Date End Date Griselda [...] October 10, 2024 End: October 10, 2024 Hand Ii Cutter Relationship Specialty Start Date End Date Griselda Hastings DO [address] [place] [address] PCP - General 01/03/19 [place] [address] [place] [address] Consulting Physician Hematology and Oncology 10/05/23 Solomon Narayanan PA-C [address] [place] [address] Physician Investigation Division Captain Neurosurgery 12/12/23 Hand Ii Cutter Relationship Specialty Start Date End Date Griselda Hastings DO [address] [place] [phone] PCP - General 01/03/19 [place] [address] [place] [address] Consulting Physician Hematology and Oncology 10/05/23 Solomon Narayanan PA-C [address] [place] [address] Physician Investigation Division Captain Neurosurgery 12/12/23 Team Status: Inactive Member Role Status Dates Griselda Hastings DO Primary Care Provider Active Sta rt: October 27, 2024 End: October 27, 2024 Lilliam Cason MD Attending Provider Active Sta rt: October 27, 2024 End: October 27, 2024 Hand Ii Cutter Relationship Specialty Start Date End Date Griselda Hastings [address] [phone] PCP - General Family Medicine 11/20/18 Griselda Hastings [address] [place] [phone] Referring Family Medicine 11/20/18 Oziel Cadena MD [address] [facility] [address] [phone] Referring Neurology 08/18/22 Hand Ii Cutter Relationship Specialty Start Date End Date Griselda Hastings [address] [place] [address] PCP - General Family Medicine 11/20/18 Griselda Hastings [address] [place] [address] Referring Family Medicine 11/20/18 Oziel Cadena MD [address] [facility] [place] [address] Referring Neurology 08/18/22 Hand Ii Cutter Relationship Specialty Start Date End Date Griselda [...] November 19, 2024 End: November 19, 2024 Hand Ii Cutter Relationship Specialty Start Date End Date Griselda Hastings DO PCP - General Family Medicine 02/13/23 Team Status: Inactive Member Role Status Dates Griselda Hastings DO Primary Care Provide r, Attending Provider Active Start: 2024 End: 2024 Hand Ii Cutter Relationship Specialty Start Date End Date Griselda [...] January 12, 2025 End: January 12, 2025 Hand Ii Cutter Relationship Specialty Start Date End Date Griselda Hastings DO PCP - [facility] Medicine 02/13/23 Hand Ii Cutter Relationship Specialty Start Date End Date Griselda Hastings DO PCP - [facility] Family Medicine 02/13/23 Team Status: Active Member [...] February 19, 2025 End: February 19, 2025 Hand Ii Cutter Relationship Specialty Start Date End Date Griselda Hastings DO PCP - General Family Medicine 02/13/23 Team Status: Inactive Member Role Status Dates Griselda Hastings DO Primary Care Provider Active Sta rt: February 26, 2025 End: February 26, 2025 Griselda Hastings DO Attending Provider Active Start: February 26, 2025 End: February 26, 2025 Hand Ii Cutter Relationship Specialty Start Date End Date Griselda [...] Esposito RN) 1035 (Given - Provider: Whitney Kaufman, JANEEN) busPIRone (Buspar) tablet 5 mg 5 mg, oral, 2 times daily, First dose on Sun04/09/24 at 2100, Phase II/On Unit 2014 (Not Given - Provider: Elizabeth Esposito RN - Reason: Patient/family refused) 1035 (Given - Provider: Whitney Kaufman RN)2100 (Due) citalopram (CeleXA) tablet 10 mg 10 mg, oral, Daily, First dose on Lynda 04/10/24 at 0900, Phase II/On Unit 1035 (Given [...] (New Bag - Provider: Shelly Mullins Capp [facility])1630 (Stopped - Provider: NAVEEN Reddy)1631 (Continued from [...] BE BASED ON THE PRIMARY CLINICAL RECORDS. [employer] provides no warranty or guarantee of the accuracy or completeness of information in this document.
[2025-03-30 08:38] VITALS: BP 140/83; PULSE 85; TEMP 36.2; O2SAT 98
[2025-03-30 09:11] VITALS: BP 118/61; BP 123/70; PULSE 90; PULSE 94; O2SAT 100; O2SAT 98
[2025-03-30] MEDS: LIDOCAINE HCL 2% 400 MG/20 ML MDV INJ (09:12)
[2025-03-30] MEDS: BUPIVACAINE HCL 0.25% PF 25 MG/10 ML VIAL INJ (09:12)
[2025-03-30] MEDS: METHYLPREDNISOLONE ACETATE 40 MG/ML VIAL INJ (09:13)
--- NOTE | 2025-03-30 09:14 | W.PM.PROCNOT ---
Date of procedure: 03/30/25 Pre-op diagnosis: Pain due to left shoulder osteoarthritis Post-op diagnosis: same as pre-op Procedure: Procedure: Left suprascapular and axillary nerve block Medications: Bupivacaine 0.25% 4cc, depomedrol 40mg The patient was seen and examined in the preoperative holding area. Informed consent was obtained and placed on the chart.? The patient was brought to the medical procedure unit and placed in the prone position. A timeout was completed verifying correct patient, procedure site, positioning, plan, and special equipment.? Using aseptic technique, under direct fluoroscopic visualization, a 25-gauge 3-1/2 inch spinal needle was advanced to the superior portion of the left posterior osseous rim of the glenoid fossa, lateral and superior to the spinal glenoid notch.? 0.5 cc of the above solution was injected.? The needle was then redirected 3 mm inferiorly and another 0.5 cc of the above medication was injected.? This needle was then removed.? Using aseptic technique, under direct fluoroscopic visualization, another 25-gauge 3-1/2 inch spinal needle was advanced toward the most inferior and lateral border of the greater tubercle.? 0.5 cc of the above medication was administered.? The needle was then redirected 3 mm inferiorly.? 0.5 cc was administered in this region.? This needle was removed. ? The patient was taken to the postprocedural recovery area and monitored for an appropriate length of time before being found suitable for discharge in the accompaniment of a responsible adult. Anesthesia: Local Surgeon: Sarina Ramsey Pathology: none sent Condition: stable Disposition: no change
== END 2025-03-30 09:19 | disposition home or self-care (01) ==
PROVIDERS: PCP Family Medicine; Visit Provider Anesthesiology
DX: M19.012 Primary osteoarthritis, left shoulder (principal); M25.512 Pain in left shoulder
CPT/HCPCS: 64417; 64418; J0665; J1010

== ENCOUNTER 2025-04-03 13:17 | Outpatient (OUT) | payer MEDICARE, OTHER, SELFPAY ==
--- OUTSIDE RECORDS SUMMARY | 2025-03-24 10:30 | XMS_ITS | Encounter Summary ---
Author Organization [facility] Address [address] [place] [address] Care Team Providers Care Grain Combine Driver Name Role Phone Jax Hastings DO Primary Care Provider [phone] Lilliam Cason MD Unavailable Encounter Details Date Type Department Care Team (Late st Contact Info) Description 03/24/2025 10:30 AM EDT Consult [facility] [address] [place] [address] Isaias Ramirez MD [address] [place] [address] Social History Tobacco Use Types Packs/Day Years Used Date Smoking Tobacco: Every Day Cigarettes 0.5 52.4 Started: 1970 Smokeless Tobacco: Never Tobacco Cessation:Ready to Q uit: Not Asked; Counseling Given: Not Answered Alcohol Use Standard Drinks/Week Comments Never 0 (1 standard drink = 0.6 oz pur e alcohol) Humiliation, Afraid, Rape, a nd Kick questionnaire Answer Date Recorded Within the last year, have y ou been afraid of your partner or ex-partner? Patient unable to answer 03/24/2025 Emotionally Abused Not on file 03/24/2025 Physically Abused Not on file 03/24/2025 Sexually Abused Not on file 03/24/2025 PHQ-2 Answer Date Recorded Patient Health Questionnaire-2 Score 1 03/24/2025 Sex and Gender Information Value Date Recorded Sex Assigned at Male 02/13/2025 1:20 PM EDT Legal Sex Male 9:31 AM EDT Gender Identity Male 02/13/2025 1:20 PM EDT Sexual Orientation Choose not to disclose 2024 1:20 PM EDT documented as of this encounter Last Filed Vital Signs Vital Sign Reading Time Taken Comments Blood Pressure 113/70 03/24/2025 10:42 AM EDT Pulse 76 03/24/2025 10:42 AM EDT Temperature 36.9 C (98.4 F) 03/24/2025 10:42 AM EDT Respiratory Rate - - Oxygen Saturation - - Inhaled Oxygen Concentration - - Weight 72.6 kg (160 lb) 03/24/2025 10:42 AM EDT Height 172.7 cm (5' 8 ) 03/24/2025 10:42 AM EDT Body Mass Index 24.33 03/24/2025 10:42 AM EDT documented in this encounter Functional Status * BP Answer Date of Assessment Author 113/70 03/24/2025 10:42 AM Ayah Lopez MA * Pulse Answer Date of Assessment Author 76 03/24/2025 10:42 AM Ayah Lopez MA * Actions Question Answer Date of Assessment Author Provided Fall Risk Handout to Patient Handout provided 03/24/2025 10:43 AM Ayah Lopez MA Provider Notified Yes 03/24/2025 10:43 AM Ayah Lopez MA * Patient Position Answer Date of Assessment Author Sitting 03/24/2025 10:42 AM Ayah Lopez MA * Fall Risk Question Answer Date of Assessment Author Worried about fallin 03/24/2025 10:43 A M Ayah Lopez MA One or more falls in the las t year: No 03/24/2025 10:43 AM Ayah Lopez MA Feels unsteady when walkin 03/24/2025 1 0:43 AM Ayah Lopez MA * BP Answer Date of Assessment Author 113/70 03/24/2025 10:42 AM Ayah Lopez MA * Temp Answer Date of Assessment Author 98.4 03/24/2025 10:42 AM Ayah Lopez MA * Temp src Answer Date of Assessment Author Temporal 03/24/2025 10:42 AM Ayah Lopez MA * Pulse Answer Date of Assessment Author 76 03/24/2025 10:42 AM Ayah Lopez MA * Over the past 2 weeks, how often have you been bothered by any of the following problems? Question Answer Date of Assessment Author Thoughts that you would be better off or hurting yourself in some way Not at all 03/24/2025 10:43 AM Adia Lopez MA Patient Health Questionnaire-9 Score 1 03/24/2025 10:43 AM Peterson Lopez MA Trouble falling or staying asleep, or sleeping too much Not at all 03/24/2025 10:43 AM Ayah Lopez MA Feeling tired or having little energy Not at all 03/24/2025 10:43 AM Ayah Lopez MA Poor appetite or overeating Not at all 03/24/2025 10 :43 AM Ayah Lopez MA Feeling bad about yourself - or that you are a failure or have let yourself or your family down Not at all 03/24/2025 10:43 AM Ayah Lopez MA Trouble concentrating on things, such as reading the newspaper or watching television Not at all 03/24/2025 10:43 AM Ayah Lopez MA Moving or speaking so slowly that other people could have noticed? Or the opposite - being so fidgety or restless that you have been moving around a lot more than usual. Not at all 03/24/2025 10:43 AM Ayah Mchugh MA * Over the past 2 weeks, how often have you been bothered by any of the following problems? Question Answer Date of Assessment Author Little interest or pleasure in doing things Not at all 03/24/2025 10:43 AM Ayah Lopez MA Feeling down, depressed, or hopeless Several days 03/24/2025 10:43 AM Ayah Lopez MA Patient Health Questionnaire-2 Score 1 03/24/2025 10:43 AM Peterson Lopez MA * BP Location Answer Date of Assessment Author Right arm 03/24/2025 10:42 AM Ayah Lopez MA * Modified Malnutrition Screen Tool (MST) Question Answer Date of Assessment Author Have you been eating poorly because of a decreased appetite? Yes 03/24/2025 10:43 AM Ayah Lopez MA Provider Notified Yes 03/24/2025 10:43 AM Ayah Lopez MA Have you recently lost weight without trying? Yes 03/24/2025 10:43 AM Justine Lopez MA How much has your food intake decreased? 25-60% of normal 03/24/2025 10:43 AM Ayah Lopez MA If yes, how much weight have you lost? Lost 2 - 9 pounds 03/24/2025 10:43 AM Ayah Lopez MA Unplanned weight loss over: Past Month 03/24/2025 10:43 AM Ayah Lopez MA * Patient Position Answer Date of Assessment Author Sitting 03/24/2025 10:42 AM Ayah Lopez MA documented as of this encounter Plan of Treatment Not on file documented as of this encounter Visit Diagnoses Not on filedocumented in this encounter Care Teams Grain Combine Driver Relationship Specialty Start Date End Date Jax Hastings DO [facility] [place] [address] PCP - General Family Medicine 02/13/25 Lilliam Cason MD [address] [place] [phone] Referring Physician Cardiovascular Disease 03/24/25 documented as of this encounter
--- OUTSIDE RECORDS SUMMARY | 2025-04-03 13:21 | XMS_ITS | Encounter Summary ---
Author Organization [facility] Address [address] [place] [address] Care Team Providers Care Double Bass Player Name Role Phone Jax Hastings Primary Care Provider [phone] Jax Hastings Unavailable [phone] Oziel Cadena MD Unavailable [phone] Source Comments In the event this information is protected by the Federal Confidentiality of Alcohol and Drug AbusePatient Records regulations: The Federal rules restrict any use of the information to criminally investigate or prosecute any alcohol or drug abuse patient.[facility] Encounter Details Date Type Department Care [...] 10:15 AM EDT Appointment Radiology Pet CT [address] [place] [address] [place] [address] Ct CN with contrast and lab 11/06/2025 9:00 AM EDT Visit (SP) Office Hematology/Oncology [address] [place] [address] [place] [address] Memo Acevedo MD [address] [place] [address] [place] [address] 1 year follow up for ct and lab results documented as of this encounter Visit Diagnoses Not on filedocumented in this encounter Care Teams Double Bass Player Relationship Specialty Start Date End Date Jax Hastings [address] [place] [phone] PCP - General Family Medicine 11/20/18 Jax Hastings [address] [place] [phone] Referring Family Medicine 11/20/18 Oziel Cadena MD 5319 [facility] [address] [address] Referring Neurology 08/18/22 documented as of this encounter
--- OUTSIDE RECORDS SUMMARY | 2025-04-03 13:21 | XMS_ITS | Encounter Summary ---
Author Organization [facility] Address [address] [place] [address] Phone Care Team Providers Care Line Closer Name Role Phone Jax [place] DO Primary Care Provider [phone] Helder Saleem MD Unavailable [phone] René Narayanan PA-C Unavailable [phone] Encounter Details Date Type Department Care Team (Late st Contact Info) Description 11/07/2024 Scanned Document [facility] [address] [place] [address] [place] [address] [place], [place] [phone] Social History Tobacco Use Types Packs/Day Years [...] any time in the past 12 m [facility], were you homeless or living in a [facility] (including now)? No 04/09/2024 Sex and Gender [...] Description 09/25/2025 9:00 AM EDT Office Visit [facility] [address] [facility] [address] [place] [phone] Doretha [place] MD [address] [place] [address] documented as of this encounter Goals Goal [...] documented as of this encounter Care Teams Line Closer Relationship Specialty Start Date End Date Jax Hastings DO [address] [place] [address] PCP - General 01/03/19 [place] [address] [place] [address] Consulting Physician Hematology and Oncology 10/05/23 René Narayanan PA-C [address] [place] [address] Physician Mixer Operator Vacuum Pan Salt Neurosurgery 12/12/23 documented as of this encounter
--- OUTSIDE RECORDS SUMMARY | 2025-04-03 13:21 | XMS_ITS | Encounter Summary ---
Author Organization [facility] Address [address] [place] [address] Care Team Providers Care Seedling Puller Name Role Phone Jax Hastings Primary Care Provider [phone] Encounter Details Date Type Department Care Team (Late Contact Info) Description 05/04/2023 External Result Encounter [facility] External Department Unsolicited Nikole Mota NP [address], [place] [id number] Social History Tobacco Use Types Packs/Day Years [...] [facility] [address] [place] [phone] Oziel Cadena MD [address] [place], [place] [phone] 01/08/2026 8:30 AM EDT Office Visit [facility] [...] Alber Goodson M.D.05/04/2023 4:34 PM Dictation Location: [place] [address] Transcribed By: [facility] 05/04/23 1634 Dictated By: Alber Goodson II, MD 05/04/23 1549 Signed By: <Electronically signed by Alber Goodson II, MD in OV> 05/04/23 1634 Narrative 05/07/2023 4:31 PM EST [facility] Main [address] [address] [address] Scan Report Signed Patient: Jovani Kong MR#: [id number] : 1960 Acct:[id number] Age/Sex: 62 / M ADM Date: 05/04/23 Loc: CT Room: Type: [facility] Attending Dr: Nikole Mota APRN, HOSTESS PARTY SALES REPRESENTATIVE-C Copies to: Nikole Mota APRN, CNP Ordering Provider: Nikole Mota APRN, CNP Date of Service: 05/04/23 CT/CT angio neck: H53.9, I65.23, I65.1, I66.09, I65.29 ([id number]) CT/CT angio head: H53.9, I65.23, I65.1, I66.09, [...] Procedure Note Radiology, Radiologist, MD - 05/07/2023 [facility] Main [place] [address] [place] [address] CT Scan Report Signed Patient: Jovani Kong CMR#: [id number] : 1960Acct:[id number] Age/Sex: 62 / MADM Date: 05/04/23 Loc: CT Room:Type: [facility] Attending Dr: Nikole Mota APRN, HOSTESS PARTY SALES REPRESENTATIVE-C Copies to: Nikole Mota APRN,STEAM PLANT OPERATOR Ordering Provider: Nikole Mota APRN,STEAM PLANT OPERATOR Date of Service: 05/04/23 CT/CT angio neck: H53.9, I65.23, I65.1, I66.09,I65.29 ([id number]) CT/CT angio head: H53.9, I65.23, I65.1, I66.09, [...] Alber Goodson M.D.05/04/2023 4:34 PM Dictation Location: [place] [address] Transcribed By: [facility] 05/04/23 1634 Dictated By: Alber Goodson II, MD 05/04/23 1549 Signed By: <Electronically signed by Alber Goodson II, MD inOV> 05/04/23 1634 us Nikole Mota HOSTESS PARTY SALES REPRESENTATIVE IMG CT PROCEDURES Final Result documented in this encounter Visit Diagnoses Not on filedocumented in this encounter Care Teams Seedling Puller Relationship Specialty Start Date End Date Jax Hastings DO PCP - General Family Medicine 02/13/23 documented as of this encounter
--- OUTSIDE RECORDS SUMMARY | 2025-04-03 13:21 | XMS_ITS | Encounter Summary ---
Author Organization [facility] Address [address] [facility] [place] [address] Care Team Providers Care Supervisor Display Fabrication Name Role Phone Jax Hastings DO Primary Care Provider [phone] Encounter Details Date Type Department Care Team (Late st Contact Info) Description 04/03/2023 Abstract [facility] [facility] [address] [place] [phone] Nikole Mota, CASINO FLOOR WALKER [address] [place] [address] Social History Tobacco Use Types Packs/Day Years [...] [facility] [address] [facility] [address] [place] [address] Oziel Cadena MD [address] [facility] [address] [phone] 01/08/2026 8:30 AM EDT Office Visit [facility] [address] [facility] [address] [place] [address] Anahi Franco PA [address] [facility] [address] [place] [address] documented as of this encounter Visit Diagnoses Not on filedocumented in this encounter Care Teams Supervisor Display Fabrication Relationship Specialty Start Date End Date Jax Hastings DO PCP - General Family Medicine 02/13/23 documented as of this encounter
--- OUTSIDE RECORDS SUMMARY | 2025-04-03 13:21 | XMS_ITS | Clinical Summary ---
Author Organization [facility] Address [address] [place] [address] Care Team Providers Care Fabric Inspector Name Role Phone Jax Hastings Primary Care Provider [phone] Jax Hastings Unavailable [phone] Oziel Cadena MD Unavailable [phone] Allergies Active Allergy Reactions Criticality Noted [...] is lower risk 5 11/03/2022 Data from: https://www.neighborhoodatlas.medicine.[facility]/. Last address used for calculation [address] 11/03/2022 Sex and Gender Information Value Date Recorded Sex Assigned at Male 09/20/2022 2:46 PM EDT Legal Sex Male 10:55 AM EDT Gender Identity Male 09/20/2022 2:46 PM EDT Sexual Orientation Straight 09/20/2022 2: 46 PM EDT Occupation Industry Job Start Date Job End Date [place] Not on file Not on file Not [...] AM EDT Appointment Radiology Pet CT [address] [facility] [place] [address] Ct CN with contrast and lab 11/06/2025 9:00 AM EDT Visit (SP) Office Hematology/Oncology [address] [facility] [place] [address] Memo Acevedo MD [address] [place] [address] [place] [address] 1 year follow up for ct [...] - 8.0 g/dL 10/26/2023 9:39 AM EDT [facility] Albumin 4.3 3.9 - 4.9 g/dL 10/26/2023 9:39 AM EDT [facility] Calcium, Total 9.9 8.5 - 10.2 mg/dL 10/26/2023 9:39 AM EDT [facility] Bilirubin, Total 0.5 0.2 - 1.3 mg/dL 10/26/2023 9:39 AM [facility] Alkaline Phosphatase 75 38 - 113 U/L 10/26/2023 9:39 AM [facility] AST 9(L) 14 - 40 U/L 10/26/2023 9:39 AM [facility] ALT 10 10 - 54 U/L 10/26/2023 9:39 AM [facility] Glucose 89 74 - 99 mg/dL 10/26/2023 9:39 AM [facility] Comment: The [place] Diabetes Association (ADA) provides guidance for cutoff [...] Standards of Medical Care in Diabetes 2016, [place] [employer] Association. Diabetes Care. 2016.39(Suppl 1). BUN [...] - 18 mmol/L 10/26/2023 9:39 AM EDT [facility] Estimated Glomerular Filtration Rate 85 >=60 mL/min/1. 73m 10/26/2023 9:39 AM EDT [facility] Comment:Estimated Glomerular Filtration Rate (eGFR) is [...] EDT Memo Acevedo MD LABORATORY Final Result [facility] [address] [place] [address] from Last 3 Months or Most Recently Relevant to Health Maintenance Insurance [facility] CHOICE PLUS MEDICARE Care Teams Fabric Inspector Relationship Specialty Start Date End Date Jax Hastings [address] [place] [address] PCP - General Family Medicine 11/20/18 Jax Hastings [address] [place] [address] Referring Family Medicine 11/20/18 Oziel Cadena MD 5319 [facility] [address] [phone] Referring Neurology 08/18/22
--- OUTSIDE RECORDS SUMMARY | 2025-04-03 13:21 | XMS_ITS | Encounter Summary ---
Author Organization [facility] Address [address] [place] [address] Phone Care Team Providers Care Brush Polisher Name Role Phone Jax Hastings DO Primary Care Provider [phone] Helder Saleem MD Unavailable [phone] René Narayanan PA-C Unavailable Encounter Details Date Type Department Care Team (Late st Contact Info) Description 01/14/2024 Scanned Document [facility] [address] [place] [address] Doretha [place] MD [address] [place], [place] [phone] Social History Tobacco Use Types Packs/Day Years [...] 9:00 AM EDT Office Visit [facility] [address] [facility] [address] [place] [phone] Doretha [place] MD [address] [place] [address] documented as of this encounter Goals Goal [...] documented as of this encounter Care Teams Brush Polisher Relationship Specialty Start Date End Date Jax Hastings DO [address] [place] [address] PCP - General 01/03/19 [place] [address] [place] [address] Consulting Physician Hematology and Oncology 10/05/23 René Narayanan PA-C [address] [place] [address] Physician Chief Ii Dispatcher Neurosurgery 12/12/23 documented as of this encounter
--- OUTSIDE RECORDS SUMMARY | 2025-04-03 13:21 | XMS_ITS | Encounter Summary ---
Author Organization [facility] Address [address] [place] [address] Phone Care Team Providers Care Special Education Educational Assistant Name Role Phone Jax Hastings DO Primary Care Provider [phone] Helder Saleem MD Unavailable [phone] René Narayanan PA-C Unavailable [phone] Encounter Details Date Type Department Care Team (Late st Contact Info) Description 12/18/2022 Patient Risk Score ACO Care Management [address] [place] [address] Social History Tobacco Use Types [...] Description 09/25/2025 9:00 AM EDT Office Visit [facility] [address] [facility] [address] [place] [address] Doretha [place] MD [address] [place], [place] [phone] documented as of this encounter Visit Diagnoses Not on filedocumented in this encounter Care Teams Special Education Educational Assistant Relationship Specialty Start Date End Date Jax Hastings DO [address] [place] [address] PCP - General 01/03/19 [place] [address] [place] [address] Consulting Physician Hematology and Oncology 10/05/23 René Narayanan PA-C [address] [place] [address] Physician Bowl Turner Neurosurgery 12/12/23 documented as of this encounter
--- OUTSIDE RECORDS SUMMARY | 2025-04-03 13:21 | XMS_ITS | Clinical Summary ---
Author Organization [facility] Address [address] [place] [address] Phone Care Team Providers Care Test Kitchen Home Economist Name Role Phone DarlingJax Neisha JOSÉ Primary Care Provider [phone] Helder Saleem MD Unavailable René Narayanan PA-C Unavailable [phone] Allergies Active Allergy Reactions Criticality Noted [...] 02/26/2024 Cervical radiculopathy 01/03/2024 Senile osteoporosis 01/03/2024 Family History Medical History Relation Name Comments [...] time in the past 12 m [facility], were you homeless or living in a care home (including now)? No 04/09/2024 Sex and [...] Description 09/25/2025 9:00 AM EDT Office Visit [facility] [address] [facility] [address] [place] [address] Camille Harris MD [address] [place] [address] Health Maintenance Due Date Last Done Comments [...] Tdap) 03/15/2024 03/15/2014 Influenza Vaccine (#1) 2025 COVID-19 Vaccine (1 - season) 2025 Diabetes Screening 04/10/2025 04/10/2024, 0 02/11/2024, [...] surgery Care Plan Patient has spine surgery Camille Jimenez MD Medical Devices Implanted Type Area Safety Assistant Device Identifier Shelf Expiration Date Model / Serial / Lot Allograft, Triad [employer]otic 6 X 11 X 14 - [id number] - [id number] Implanted:Qt y: 1 on 04/09/2024 by Rojas Edwards MD at [facility] Spinal Hardware N/A: [employer] 03/14/2028 [id number] / [id number] / Allograft, Triad Lordotic 6 X 11 X 14 - [id number] - [id number] Implanted:Qt y: 1 on 04/09/2024 by Rojas Edwards MD at [facility] Spinal Hardware N/A: [employer] 04/29/2028 [id number] / [id number] / Plate, Acp, 1.6v, 2 Level, 34mm - [id number] Implanted:Qt y: 1 on 04/09/2024 by Rojas Edwards MD at [facility] Spinal Hardware N/A: [employer] [id number] / / Screw, Acp, Self Drill, 3.5 X 17mm, Variable - [id number] Implanted:Qt y: 2 on 04/09/2024 by Rojas Edwards MD at [facility] Spinal Hardware N/A: [employer] [id number] / / 3.5 X 19mm Screw Implanted:Qt y: 4 on 04/09/2024 by Rojas Edwards MD at [facility] N/A: [employer] [id number] / / Description:per bill only brent r [...] LAB CHEMISTRY METHOD 04/10/2024 10:32 AM EDT [facility] Sodium 138 136 - 145 mmol/L LAB CHEMISTRY METHOD 04/10/2024 10:32 AM EDT [facility] Potassium 4.5 3.5 - 5.3 mmol/L LAB CHEMISTRY METHOD 04/10/2024 10:32 AM EDT [facility] Chloride 103 98 - 107 mmol/L LAB CHEMISTRY METHOD 04/10/2024 10:32 AM EDT [facility] Bicarbonate 26 21 - 32 mmol/L LAB CHEMISTRY METHOD 04/10/2024 10:32 AM EDT [facility] Anion Gap 14 10 - 20 mmol/L LAB CHEMISTRY METHOD 04/10/2024 10:32 AM EDT [facility] Urea Nitrogen 14 6 - 23 mg/dL LAB CHEMISTRY METHOD 04/10/2024 10:32 AM EDT [facility] Creatinine 0.86 0.50 - 1.30 mg/dL LAB CHEMISTRY METHOD 04/10/2024 10:32 AM EDT [facility] eGFR >90 >60 mL/min/1. 73m*2 LAB CHEMISTRY METHOD 04/10/2024 10:32 AM EDT [facility] Comment: Calculations of estimated GFR are performed using the 2020 CKD-EPI Study Refit equation without the race variable for the IDMS-Traceable creatinine methods. https://jasn.asnjournals.org/content/early//ASN.1589150128 Calcium 9.0 8.6 - 10.6 mg/dL LAB CHEMISTRY METHOD 04/10/2024 10:32 AM EDT [facility] Blood Venous blood specimen / Unknown Venipuncture / Unknown 04/10/2024 9:19 AM EDT 04/10/2024 10:03 AM EDT us Camille Harris MD LAB BLOOD ORDERABLES Final Resul t [facility] [id number] [place], [place] [id number] * XR DEXA bone density (02/13/2024 10:50 AM EDT) 12/29/2024 8:11 AM EDT 12/29/2024 8:[address] [facility] - 12/29/2024 8:09 AM EDT DEXA: Moderately low bone mineral density FRAX and Z-Score calculations include ethnicity in determining the score for these values, as determined by organizations such as the NIH, WHO and NOF. All images and detailed analysis are available on the Radiology PACS. MACRO: None Signed by: Ruddy Lopez 12/29/2024 8:09 AM Dictation workstation: [id number] Narrative [facility] 12/29/2024 8:09 AM EDT Interpreted By: Ruddy Lopez, STUDY: DEXA BONE DENSITY02/13/2024 10:50 am INDICATION: Signs/Symptoms:r/o osteoporosis, NEED AXIAL SKELETON IMAGES.. The patient is a 63 y/o year old M. ,M54.12 Radiculopathy, cervical region COMPARISON: None. ACCESSION NUMBER(S): [id number] ORDERING CLINICIAN: CAMILLE HARRIS TECHNIQUE: DEXA BONE [...] Radiculopathy, cervical region COMPARISON: None. ACCESSION NUMBER(S): [id number] ORDERING CLINICIAN: CAMILLE HARRIS TECHNIQUE: DEXA BONE [...] Ruddy Lopez 12/29/2024 8:09 AM Dictation workstation: [id number] Camille Harris MD IMG DXA PROCEDURES Final Result MMODAL from Last 3 Months or Most Recently Relevant to Health Maintenance Additional Health Concerns Active Problems Noted Date Diagnosed Date Patient has spine surgery 01/09/2024 Insurance [facility] MEDICARE PART A AND B [facility] MEDICARE PART A AND B Advance Directives For more information, please contact: [phone] (Available ) Documents on File Type Date Recorded Patient Activity Therapy Teacher Expl anation Living Will 10/05/2023 9:39 [...] Discussion Completed Decision Maker: Patient Care Teams Test Kitchen Home Economist Relationship Specialty Start Date End Date Jax Hastings DO [facility] [place] [address] PCP - General 01/03/19 [place] [address] [place] [address] Consulting Physician Hematology and Oncology 10/05/23 René Narayanan PA-C [address] [place] [address] Physician Nurse Office Neurosurgery 12/12/23
--- OUTSIDE RECORDS SUMMARY | 2025-04-03 13:21 | XMS_ITS | Encounter Summary ---
Author Organization [facility] Address [address] [place] [address] Phone Care Team Providers Care Can Line Examiner Name Role Phone Jax Hastings DO Primary Care Provider [phone] Helder Saleem MD Unavailable [phone] René Narayanan PA-C Unavailable [phone] Encounter Details Date Type Department Care Team (Late st Contact Info) Description 01/18/2023 Patient Risk Score ACO Care Management [address] [place] [address] Social History Tobacco Use Types [...] Description 09/25/2025 9:00 AM EDT Office Visit [facility] [address] [facility] [address] [place] [address] Doretha Harris MD [address] [place], [place] [phone] documented as of this encounter Visit Diagnoses Not on filedocumented in this encounter Care Teams Can Line Examiner Relationship Specialty Start Date End Date Jax Hastings DO [address] [place] [address] PCP - General 01/03/19 [place] [address] [place] [address] Consulting Physician Hematology and Oncology 10/05/23 René Narayanan PA-C [address] [place] [address] Physician Bundle Tier And Labeler Neurosurgery 12/12/23 documented as of this encounter
--- OUTSIDE RECORDS SUMMARY | 2025-04-03 13:21 | XMS_ITS | Encounter Summary ---
Author Organization [facility] Address [address] [place] [address] Phone Care Team Providers Care Perfume And Toilet Water Maker Name Role Phone Jax Hastings DO Primary Care Provider [phone] Helder Saleem MD Unavailable [phone] René Narayanan PA-C Unavailable [phone] Encounter Details Date Type Department Care Team (Late st Contact Info) Description 01/11/2024 Scanned Document [facility] [address] [place] [address] Doretha Harris MD [address] [place], [place] [phone] Social History Tobacco Use Types Packs/Day Years [...] Description 09/25/2025 9:00 AM EDT Office Visit [facility] [address] [facility] [address] [place] [address] Doretha Harris MD [address] [place] [address] documented as of this encounter Goals Goal [...] documented as of this encounter Care Teams Perfume And Toilet Water Maker Relationship Specialty Start Date End Date Jax Hastings DO [address] [place] [address] PCP - General 01/03/19 [place] [address] [place] [address] Consulting Physician Hematology and Oncology 10/05/23 René Narayanan PA-C [address] [place] [address] Physician Fertilizer Supervisor Neurosurgery 12/12/23 documented as of this encounter
--- OUTSIDE RECORDS SUMMARY | 2025-04-03 13:21 | XMS_ITS | Encounter Summary ---
Author Organization [facility] Address [address] [place] [address] Phone Care Team Providers Care Semiconductor Processor Name Role Phone Jax Hastings DO Primary Care Provider [phone] Helder Saleem MD Unavailable [phone] René Narayanan PA-C Unavailable [phone] Encounter Details Date Type Department Care Team (Late st Contact Info) Description 02/18/2023 Patient Risk Score ACO Care Management [address] [place] [address] Social History Tobacco Use Types [...] 09/25/2025 9:00 AM EDT Office Visit [facility] [address] [facility] [address] [place] [address] Doretha Harris MD [address] [place], [place] [phone] documented as of this encounter Visit Diagnoses Not on filedocumented in this encounter Care Teams Semiconductor Processor Relationship Specialty Start Date End Date Jax Hastings DO [address] [place] [address] PCP - General 01/03/19 [place] [address] [place] [address] Consulting Physician Hematology and Oncology 10/05/23 René Narayanan PA-C [address] [place] [address] Physician Detective Neurosurgery 12/12/23 documented as of this encounter
--- OUTSIDE RECORDS SUMMARY | 2025-04-03 13:21 | XMS_ITS | Clinical Summary ---
Author Organization [facility] Address [address] [place] [address] Care Team Providers Care Supervisor Curing Room Name Role Phone Jax Hastings DO Primary Care Provider [phone] Lilliam Cason MD Unavailable [phone] Allergies Active Allergy Reactions Criticality Noted Date Comments Cephalexin Hives 11/25/2018 Other Reaction(s): hives, Unknown Medications albuterol 90 mcg/actuation inhaler Inhale 2 puffs every 4 (four) hours if needed. 4 Active Praluent Pen 75 mg/mL pen injector 5 Active aspirin 81 mg EC tablet Take 81 mg by mouth in the morning. 4 Active atorvastatin (Lipitor) 10 mg tablet Take 1 tablet by mouth in the morning. Active citalopram (CeleXA) 20 mg tablet Active clopidogrel (Plavix) 75 mg tablet Take 75 mg by mouth in the morning. 4 Active ezetimibe (Zetia) 10 mg tablet Take 10 mg by mouth in the morning. 3 Active HYDROcodone-vanda taminophen ([place]) 7.5-325 mg tablet 5 Active hydrOXYzine HCL (Atarax) 25 mg tablet 2 Active montelukast (Singulair) 10 mg tablet Take 10 mg by mouth. 3 Active pantoprazole (ProtoNix) 40 mg EC tablet 5 Active pravastatin (Pravachol) 40 mg tablet Take 40 mg by mouth. 4 Active pregabalin (Lyrica) 50 mg capsule Take 50 mg by mouth twice a day. 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 Brain mass 10/16/2023 Burning sensation 10/16/2023 Cardiac arrhythmia 10/16/2023 Dizziness 10/16/2023 Dyshidrotic eczema 10/16/2023 Essential hypertension 10/16/2023 Heart block 10/16/2023 History of oral cancer 10/16/2023 Hyperlipidemia 10/16/2023 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/16/2023 PAD (peripheral artery disease) 10/16/2023 Paresthesia of left lower extremity 10/16/2023 Productive cough 10/16/2023 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 Myelitis 08/29/2023 Cigarette nicotine dependenc e with nicotine-induced disorder 08/14/2023 Acute pain of left shoulder 07/23/2023 Cervical dystonia 07/03/2023 Radicular pain in left arm 04/04/2023 Cervical radiculopathy 03/01/2023 Cervical paraspinal muscle spasm 12/29/2022 Cervical stenosis of spinal canal 12/29/2022 Pain in left arm 12/29/2022 Preglaucoma, unspecified, right eye 12/29/2022 Skin sensation disturbance 12/29/2022 Visual disturbance 12/29/2022 Weakness 12/29/2022 Age-related nuclear cataract of right eye 2022 Degeneration of cervical intervertebral disc Impairment of balance 12/10/2022 Insomnia 12/10/2022 Lumbar radiculopathy 12/10/2022 Malignant (primary) neoplasm, unspecified 2022 Myalgia 12/10/2022 Other abnormal findings on d iagnostic imaging of central nervous system 12/10/2022 Pseudophakia 12/10/2022 Schwannoma 12/10/2022 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, unspecified 12/10/2022 Vertigo of central origin 12/10/2022 Neck pain 11/23/2022 Cervico-occipital neuralgia 11/23/2022 Brachial plexopathy 11/23/2022 Glioma of brain 10/13/2021 Lung nodules 10/13/2021 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 Encounters Date Type Department Care Team Description 03/24/2025 10:30 AM EDT Consult [facility] [address] [place] [address] Isaias Ramirez MD 02/13/2025 - 02/13/2025 11:59 PM EDT Hospital Encounter [facility] Radiology External Films [address] [place] [address] Discharge Disposition: Home or Self Care (01) 02/13/2025 Telephone [facility] [address] [place] [address] Ayah Ortega MA from Last 3 Months Family History Medical History Relation Name Comments Cancer Father Omar Kong Heart disease Mother Paty Kong Stroke Paternal Grandfather Omar Kong Jr Relation Name Status Comments Father Omar Kong Alive Mother Paty Kong Alive Paternal Grandfather Omar Kong Jr Alive Social History Tobacco Use Types Packs/Day [...] not to disclose 2024 1:20 PM EDT Last Filed Vital Signs Vital [...] Mass Index 24.33 03/24/2025 10:42 AM EDT Plan of Treatment Health Maintenance Due Date Last Done Comments CT Colonography 1962 Colonoscopy 1962 Colorectal Cancer Screening 1962 FIT-DNA 1962 FIT 1962 FOBT 1962 Medicare Annual Wellness (AWV) 1962 Sigmoidoscopy 1962 Pneumococcal Vaccine: Pediatrics (0 to 5 Years) and At-Risk Patients (6 to 64 Years) (1 of 2 - PCV) 1981 Zoster Vaccines (1 of 2) 2012 Adult Tetanus 03/15/2024 03/15/2014 COVID-19 Vaccine (3 - 2024-2 6 season) 2025 01/21/2021, 12/30/2020 Influenza Vaccine (#1) 2025 Depression Screening 03/24/2026 03/24/2025 HIB Vaccines Aged Out No longer eligi [...] IMAGING from Last 3 Months Insurance [facility] Care Teams Supervisor Curing Room Relationship Specialty Start Date End Date Jax Hastings DO [facility] [place] [address] PCP - General Family Medicine 02/13/25 Lilliam Cason MD [address] [address] Referring Physician Cardiovascular Disease 03/24/25
--- OUTSIDE RECORDS SUMMARY | 2025-04-03 13:21 | XMS_ITS | Encounter Summary ---
Author Organization [facility] Address [address] [place] [address] Care Team Providers Care Art Gallery Internship Name Role Phone Andreagideon Jax Neisha JOSÉ Primary Care Provider [phone] Encounter Details Date Type Department Care Team (Late Contact Info) Description 03/13/2023 Abstract [facility] [address] [place] [address] Oziel Cadena MD [address], [place] [address] Social History Tobacco Use Types Packs/Day Years [...] CLARAGideon [place] [facility] [address] [facility] [address] [place] [address] Oziel Cadena MD [address] [facility] [address] [id number] 01/08/2026 8:30 AM EDT Office Visit [facility] [address] [email or web address] [address] [place] [address] Anahi Franco PA [address] [facility] [[email or web address]] [address] [place] [address] documented as of this encounter Visit Diagnoses Not on filedocumented in this encounter Care Teams Art Gallery Internship Relationship Specialty Start Date End Date Jax Hastings DO PCP - General Family Medicine 02/13/23 documented as of this encounter
--- OUTSIDE RECORDS SUMMARY | 2025-04-03 13:21 | XMS_ITS | Clinical Summary ---
Author Organization [facility] Address [address] [facility], [address] [place] [address] Care Team Providers Care Home Health Clinical Supervisor Name Role Phone Jax Hastings DO Primary Care Provider [phone] Allergies Active Allergy Reactions Criticality Noted Date [...] 11/25/2007 FIT/FOBT: Average risk 11/25/2007 Fecal-DNA (Cologuard): [place] ge risk 11/25/2007 Sigmoidoscopy/CT colonography 11/25/2007 Shingles [...] patient's age to complete this topic Insurance [facility] Care Teams Home Health Clinical Supervisor Relationship Specialty Start Date End Date Jax Hastings DO [address] [facility] [address] [place] [address] PCP - General Family Medicine 06/13/23
--- OUTSIDE RECORDS SUMMARY | 2025-04-03 13:21 | XMS_ITS | Encounter Summary ---
Author Organization [facility] Address [address] [place] [address] Phone Care Team Providers Care Derrick Car Operator Name Role Phone aJx Hastings DO Primary Care Provider [phone] Helder Saleem MD Unavailable [phone] René Narayanan PA-C Unavailable [phone] Encounter Details Date Type Department Care Team (Late st Contact Info) Description 04/10/2024 Scanned Document [facility] [address] [place] [address] Doretha Harris MD [address] [place], [place] [address] Social History Tobacco Use Types Packs/Day Years [...] were you homeless or living in a half-way (including now)? No 04/09/2024 Sex and Gender [...] 04/10/2024 7:00 AM ED T Whitney Kaufman nursery technician Aid 0 04/10/2024 7:00 AM EDT [...] Description 09/25/2025 9:00 AM EDT Office Visit [facility] [address] [place], [place] [address] [place] [address] Doretha Harris MD [address] [place] [address] documented as of this encounter Goals Goal [...] documented as of this encounter Care Teams Derrick Car Operator Relationship Specialty Start Date End Date Jax Hastings DO [address] [place] [address] PCP - General 01/03/19 [place] [address] [place] [address] Consulting Physician Hematology and Oncology 10/05/23 René Narayanan PA-C [address] [place] [address] Physician Associate Pastor Neurosurgery 12/12/23 documented as of this encounter
--- OUTSIDE RECORDS SUMMARY | 2025-04-03 13:21 | XMS_ITS | Encounter Summary ---
Author Organization [facility] Address [address] [place] [address] Care Team Providers Care Floor Sanding Machine Operator Name Role Phone Jax Hastings DO Primary Care Provider [phone] Reason for Referral * Injection (Routine) - Authorized Specialty Diagnoses / Procedures Referred By Contac t Referred To Contact Neurology Diagnoses Other nerve root and plexus disorders Acute pain of right shoulder Acute pain of left shoulder Procedures [place] OFFICE/OUTPATIENT [facility] 60 MINUTES Oziel Cadena MD [address] [facility] [address] [place] [address] Phone: tel: fax: Oziel Cadena MD [address] [facility] [address] [place] [address] Phone: tel: fax: Referral ID Status Reason Start Date Expiration Date Visits Requested Visits Authorized [id number] Authorized Perform Procedure 03/18/2025 09/20/2025 6 6 Encounter Details Date Type Department Care Team (Late st Contact Info) Description 03/24/2025 Telephone [facility] [address] [address] Ary Lugo, RT. R Social [...] Conchita R - 03/24/2025 1:47 PM EDT [id number], [id number] documented in this encounter Plan of Treatment Upcoming Encounters Date Type Department Care Team (Late st Contact Info) Description 04/30/2025 2:00 PM EST Clinical Support [facility] [address] [place] [address] Oziel Cadena MD [address] [facility] [address] [address] 01/08/2026 8:30 AM EDT Office Visit [facility] [address] [place] [address] Anahi Franco PA [address] [place] [address] Scheduled Referrals Name Type Priority [...] shoulder documented in this encounter Care Teams Floor Sanding Machine Operator Relationship Specialty Start Date End Date Jax Hastings DO PCP - General Family Medicine 02/13/23 documented as of this encounter
--- OUTSIDE RECORDS SUMMARY | 2025-04-03 13:21 | XMS_ITS | Data Portability ---
Author Organization [place] [facility] [place], [facility] Address [address] [place] [address] Care Team Providers Care Desk Monitor Name Role Phone TOMEKARoge GRISELDA Primary Care Provider [phone] Assessment Encounter Date Assessment Date Assessment LastModified by Organization Details LastModified Time 01/26/2023 01/26/2023 61 yo M hx of ne ck pain mainly axial in nature and associated occipital POWERS presents today for further E/M. Worse pain in the neck as he has previously had occipital nerve blocks with great relief. Pains do not radiate at this time, just accompanied by POWERS. We are suspicious for cervicogenic headaches. He has tried mutliple rounds of PT/HEP for the neck, chiropratics, otc medicines. s/p second round of cervical mbb's, discussed rfa, will proceed. On exam, he grossly retains strength and sensation, no umn signs. For the occipital neuralgia, would consider possible RF vs. PNS in the future if necessary. For a presumed lumbar radiculopathy of the RLE, would prefer to have him have XR/MRI as he now has pain radiating, will discuss further therapy in the future. The patient has not reached full improvement after 3 months of therapy or spinal alignment as well as a trial of nsaids, tylenol, neuropathic agents, muscle relaxants and physical therapy or spinal manipulation. The patient is not a surgical candidate at this time. The pain is severe and impairing function and adl's despite activity modification. There are no contraindications to injection therapy, such as bleeding or infection risk. The injection is medically necessary so as to avoid any potential escalation to opioid therapy We discussed throughly with the patient the risks and benefits of the steroid injection including hyperglycemia or elevated blood sugar and osteoporosis. The patient voiced their understanding and acknowledges that their blood sugar and/or diabetes is under control and the potential risk for bone loss and by extension bone fracture. I counseled the patient extensively regarding activity modification, their diagnosis, treatment options and the plan of care. Discussed the risks, benefits, and alternatives. The patient is agreeable. I look forward to their response. They will follow up accordingly. Thank you for allowing me to participate in their care. enrrique Not available 01/26/2023 12:16:03 03/30/2023 03/30/2023 61 yo M hx of ne ck pain mainly axial in nature and associated occipital POWERS presents today for further E/M. Worse pain in the neck as he has previously had occipital nerve blocks with great relief. We are suspicious for cervicogenic headaches. He has tried mutliple rounds of PT/HEP for the neck, chiropratics, otc medicines. s/p second round of cervical mbb's. RFA provided relief of the axial neck pain; however, now he is having pain in the arms radiating from the neck specifically. At this time, will trial a C6 and C7 SNRB with sedation as it matches a dermatomal pattern down the arm. Will also continue duloxetine 20mg BID. and trial baclofen for muscle spasms. For a presumed lumbar radiculopathy of the RLE, would prefer to have him have XR/MRI as he now has pain radiating, will discuss further therapy in the future. We discussed the risks and benefits of centrally acting selective norepinephrine re-uptake inhibitors including the risk of co-administering these medications with other selective norepinephrine or selective serotonin re-uptake inhibitors. We discussed the relatively uncommon risk of agitation, headache, changes in mood, clara, the rare condition of serotonin syndrome that may occur, and the black box warning of suicide. The patient voiced their understanding, was agreeable, and recognized that these medications are being recommended for the treatment of their chronic pain condition and not a major mood disorder or mental health issue. They acknowledged that if they have an underlying mental health condition, it is their responsibility to coordinate with their mental health treating provider any potential medication adjustment; and that they will seek out their physician assists prior to initiating or co-administration of these medications. The risks and benefits of muscle relaxants was discussed. The patient understands that medications have different effects on different people, and that they need to take medication that relax their muscles with caution. We discussed the potential depressing effects of this medication both on the central nervous system and overall respiratory system; particularly in the setting of other sedating medications. The patient was advised, and it was recommended that they do not co-administer this medication with other medications. We also discussed the risk of sedation and fall precautions, and to avoid driving while administering this medication or other important decision making. And that should they have a side effect they contact our office immediately or go to the emergency room. The patient has not reached full improvement after 3 months of therapy or spinal alignment as well as a trial of nsaids, tylenol, neuropathic agents, muscle relaxants and physical therapy or spinal manipulation. The patient is not a surgical candidate at this time. The pain is severe and impairing function and adl's despite activity modification. There are no contraindications to injection therapy, such as bleeding or infection risk. The injection is medically necessary so as to avoid any potential escalation to opioid therapy We discussed throughly with the patient the risks and benefits of the steroid injection including hyperglycemia or elevated blood sugar and osteoporosis. The patient voiced their understanding and acknowledges that their blood sugar and/or diabetes is under control and the potential risk for bone loss and by extension bone fracture. I counseled the patient extensively regarding activity modification, their diagnosis, treatment options and the plan of care. Discussed the risks, benefits, and alternatives. The patient is agreeable. I look forward to their response. They will follow up accordingly. Thank you for allowing me to participate in their care. terry Not available 03/30/2023 13:32:49 Plan of Treatment Reminders Order Date Submit Date Provider Last Modified By Organization Details Last Modified Time Details Appointments None recorded. Lab None recorded. Referral None recorded. Procedures None recorded. Surgeries Selective Nerve Root Block (SURG) 2022 023 amccliman s2 Not available 4 13:54:41 radiofreque ncy ablation (SURG) 2022 023 amccliman s2 Not available 4 09:39:41 radiofreque ncy ablation (SURG) 2022 023 amccliman s2 Not available 09:39:41 Imaging None recorded. Medication Orders baclofen 10 mg tablet 2022 023 terry [id number], [address] [place] [address], [id number], 3 13:32:36 Patient TargetsNo targets recorded. Patient InstructionsNo instructions recorded. Reason for Referral None Reported. Problems No Known Problems Procedures Surgical History Date Name Laterality Status Provider Name and Address Organization Details Recorded Time 3 RFA - Cervical/Thor acic completed Pardeep Milligan MD [address] [place], [address], [facility] 03/09/2023 14:03:53 3 RFA - Cervical/Thor acic completed Pardeep Milligan MD [address] [place], [address], [facility] 02/09/2023 09:41:50 3 cervical mbb b/l c2-c5 completed Jason Prieto [facility] 12/28/2022 08:24:54 3 cervical mbb b/l c2-c5 completed Pardeep Milligan MD [address] [place], [address], [facility] 11/10/2022 10:25:12 Imaging Results None recorded. Procedure Notes None recorded. Medical Equipment None Reported. Allergies Allergen ID Allergen Name Allergen Category Reaction Reaction Severity Criticality Documentation Date Start Date Code Code System Note Provider Name and Address Organization Details Recorded Time 8297 Keflex medicatio n Not available Not available Not available 10/27/202238241 7 RxNorm Jason Prieto [facility] 3 13:14:32 Medications Name Sig Start Date Stop Date Status Note LastModified by Organization Details LastModified Time cyclobenzapr ine 10 mg tablet take 1 tablet orally three times a day if needed for muscle spasm active Not Available Not Available No t Available prednisone 10 mg tablet take 6 tablets orally daily with food or milk active Not Available Not Available No t Available doxycycline hyclate 100 mg capsule TAKE ONE CAPSULE BY MOUTH IN THE MORNING THEN TAKE ONE CAPSULE BY... (REFER TO PRESCRIPTIO N NOTES). active Not Available Not Available No t Available atorvastatin 10 mg tablet take 1 tablet by mouth once daily active Not Available Not Available No t Available azithromycin 250 mg tablet take 2 tablets by mouth TODAY then take 1 tablet DAILY FOR 4 DAYS active Not Available Not Available No t Available tizanidine 4 mg tablet take 1 tablet by mouth at bedtime if needed active Not Available Not Available No t Available acetazolamid e 125 mg tablet take 1 tablet by mouth twice a day active Not Available Not Available No t Available sumatriptan 100 mg tablet PLEASE SEE ATTACHED FOR DETAILED DIRECTIONS active Not Available Not Available N ot Available prednisone 20 mg tablet take 1 tablet by mouth every morning and at bedtime for 5 days active Not Available Not Available N ot Available acetazolamid e 250 mg tablet take 1 tablet by mouth every morning and AFTERNOON and 2 at bedtime as directed active Not Available Not Available No t Available topiramate 25 mg tablet TAKE 1 TAB BY MOUTH AT BEDTIME FOR WEEK, THEN 2 TABS X 1 WEEK, 3 TABS X 1 WEEK, THEN SWITCH TO 100MG active Not Available Not Available No t Available amlodipine 5 mg tablet take 1 tablet by mouth once daily active Not Available Not Available No t Available acyclovir 400 mg tablet TAKE 1 TABLET BY MOUTH IN THE MORNING, EVENING, AND AT BEDTIME active Not Available Not Available No t Available sulfamethoxa zole 800 mg-trimethop rim 160 mg tablet TAKE 1 TABLET BY MOUTH IN THE MORNING AND AT BEDTIME FOR 7 DAYS active Not Available Not Available No t Available butalbital-a cetaminophen -caffeine 50 mg-325 mg-40 mg tablet take 1 tablet by mouth every 4 to 6 hours if needed for headache or migraines for 30 DAYS active Not Available Not Available Not Available oxycodone-ac etaminophen 5 mg-325 mg tablet take 1-2 tablets by mouth every 6 hours if needed for pain active Not Available Not Available No t Available citalopram 20 mg tablet take 1 tablet by mouth once daily active Not Available Not Available No t Available baclofen 10 mg tablet take 1 tablet by mouth three times a day if needed for 15 DAYS active Not Available Not Available Not Available dexamethason e 2 mg tablet take 3 tablets by mouth daily for 3 days then 2 tablets daily for... (REFER TO PRESCRIPTIO N NOTES). active Not Available Not Available No t Available clotrimazole -betamethaso ne 1 %-0.05 % topical cream active Not Available Not Available Not Available indomethacin 25 mg capsule take 1 capsule by mouth every morning and every evening with meals active Not Available Not Available N ot Available montelukast 10 mg tablet take 1 tablet by mouth at bedtime active Not Available Not Available No t Available hydroxyzine HCl 25 mg tablet take 1 to 2 tablets by mouth at bedtime if needed active Not Available Not Available No t Available mirtazapine 15 mg tablet take 1/2 tablet by mouth at bedtime active Not Available Not Available No t Available ibuprofen 600 mg tablet take 1 tablet by mouth every 8 hours NEEDED FOR PAIN active Not Available Not Available No t Available methylpredni solone 4 mg tablets in a dose pack use as directed FOLLOW DIRECTIONS ON BACK OF FOIL PACK active Not Available Not Available No t Available indomethacin ER 75 mg capsule,exte nded release take 1 capsule by mouth once daily with food active Not Available Not Available No t Available topiramate 100 mg tablet TAKE 1 TABLET BY MOUTH EVERY DAY active Not Available Not Available No t Available amoxicillin 875 mg-potassium clavulanate 125 mg tablet take 1 tablet by mouth twice a day active Not Available Not Available No t Available olmesartan 20 mg tablet take 1 tablet by mouth once daily active Not Available Not Available No t Available divalproex ER 250 mg tablet,exten ded release 24 hr take 1 tablet by mouth once daily 90 active Not Available Not Available No t Available zonisamide 25 mg capsule take 1 capsule by mouth at bedtime for 1 week then INCREASE to 1 ... (REFER TO PRESCRIPTIO N NOTES). active Not Available Not Available No t Available duloxetine 20 mg capsule,natalio yed release take 1 capsule by mouth twice a day active Not Available Not Available No t Available tizanidine 4 mg capsule TAKE ONE CAPSULE BY MOUTH TWICE DAILY IF NEEDED FOR MUSCLE SPASTICITY active Not Available Not Available N ot Available [facility] ODT 75 mg disintegrati ng tablet DISSOLVE 1 TABLET ON THE TONGUE EVERY OTHER DAY active Not Available Not Available No t Available Vitals None Recorded Social History None recorded. Functional Status None recorded. Mental Status None recorded. Family History Relationship Description Onset Age of this Age Resolved Age Notes LastModified by Organization Details LastModified Time Father No current problems or disability desparaz Not available 10/27 13:14:47 Mother No current problems or disability desparaz Not available 10/27 13:14:47 Medical History No medical history recorded. Past Encounters Encounter ID Performer Location Encounter Start Date Encounter Closed Date Diagnosis/Indication Diagnosis SNOMED-CT Code Diagnosis ICD10 Code Diagnosis IMO Codes Diagnosis Note [id number] MD Zoe [facility]/ [facility] [address] [place] [address] 10/27/2022 12:26:03 10/27/2022 13:33:12 Multiple-level cervical spondylosis without myelopathy 607137245 M47.812 Cervico-oc cipital neuralgia 58080369 M54.81 Lumbosacra l radiculopathy 3136545 M54.17 [id number] Pardeep Milligan MD [facility] [address] [place] [address] 11/10/2022 10:15:19 11/16/2022 17:00:01 [id number] MD [facility]/ [facility] [address] [facility] [place] [address] 12/15/2022 10:45:15 12/15/2022 11:26:50 Multiple-level cervical spondylosis without myelopathy 779294105 M47.812 Cervico-oc cipital neuralgia 56984381 M54.81 Lumbosacra l radiculopathy 5991565 M54.17 [id number] Pardeep Milligan MD [facility] [address] [place] [address] [place] [address] 12/28/2022 07:48:11 12/28/2022 10:59:39 [id number] MD Zoe Brooks/ [facility] [address] [place] [address] 01/26/2023 11:48:06 01/26/2023 12:22:24 Multiple-level cervical spondylosis without myelopathy 707865512 M47.812 Cervico-oc cipital neuralgia 00232951 M54.81 Lumbosacra l radiculopathy 2181569 M54.17 [id number] Pardeep Milligan MD [facility] [address] [place] [address] 02/09/2023 09:25:56 02/09/2023 14:04:30 [id number] Pardeep Milligan MD [facility] [address] [place] [address] 03/09/2023 08:11:47 03/09/2023 14:05:58 [id number] MD Zoe [facility]/ [facility] [address] [place] [address] 03/30/2023 13:19:08 03/30/2023 13:43:38 Multiple-level cervical spondylosis without myelopathy [id number] M47.812 Cervico-oc cipital neuralgia 03554929 M54.81 Lumbosacra l radiculopathy 1070301 M54.17 Cervical radiculopathy 54574826 M54.12 Muscle pain 07146170 M79 .10 Health Concerns Section Related Observation LastModified by Organization Detai ls LastModified Time None Recorded Concern Status LastModified by Organization Details LastModified Time None Recorded Advance Directives Directive None Recorded Payers Insurance Date Sequence Insurance Name Policy Number Policy Gregorio Covered Member ID Gregorio Member ID Guarantor Name 03/29/2023 1 [facility] [id number] [facility] [id number] [facility] 03/29/2023 2 [facility] [id number] [facility] Notes Date Note Type Note Provider Name and Address Organization Details Recorded Time 3 text/html Pain Management HeadacheReported by PatientHPIFor location, patient reportsat the back of the head (occipital)andon both sides. For severity, patient reportspain level 5/10andmoderate. For quality, patient reportsconstant intesity. For previous tests and diagnostic procedures, patient reportsmri. Back PainReported by PatientHPIFor location, patient reportspain radiating to the buttocks,pain radiating to the legs, andpain radiating to the footbut reportslumbarandsacral. For quality, patient reportssharpandtingling. For severity, patient reportspain level 8/10,severe (8-10),interference with sleep, andinterference with work. For duration, patient reportschronic. For context, patient reportsatraumatic,prior back problems, andused medications for back pain. For alleviating factors, patient reportsrestandrelieved by changing position. For aggravating factors, patient reportsmovement/positioning andflexing back. For associated symptoms, patient reportsno bowel/bladder symptoms. For prior imaging, patient reportsnone. Neck PainReported by PatientHPIFor location, patient reportsbilateral,posterior, andlateral. For quality, patient reportsstabbing,throbbing,a holley, andradiates to bilateral shoulder. For severity, patient reportssevere,pain level 8/10, andworst pain 8/10. For timing, patient reportschronic. For context, patient reportsoveruseandatraumatic . For alleviating factors, patient reportsheat,ice,rest,exerci se, andstretching. For aggravating factors, patient reportstwisting,rom, andexercise. For neurological complaints, patient reportsnone. For treatment, patient reportsnsaidsandsteroids. For prior imaging, patient reportsx-rayandmri. Pardeep Milligan MD [address] [place] [address], [address], [facility] 01/26/2023 12:16:45 3 text/html Pain Management HeadacheReported by PatientHPIFor location, patient reportsat the back of the head (occipital)andon both sides. For severity, patient reportspain level 5/10andmoderate. For quality, patient reportsconstant intesity. For previous tests and diagnostic procedures, patient reportsmri. Back PainReported by PatientHPIFor location, patient reportspain radiating to the buttocks,pain radiating to the legs, andpain radiating to the footbut reportslumbarandsacral. For quality, patient reportssharpandtingling. For severity, patient reportspain level 8/10,severe (8-10),interference with sleep, andinterference with work. For duration, patient reportschronic. For context, patient reportsatraumatic,prior back problems, andused medications for back pain. For alleviating factors, patient reportsrestandrelieved by changing position. For aggravating factors, patient reportsmovement/positioning andflexing back. For associated symptoms, patient reportsno bowel/bladder symptoms. For prior imaging, patient reportsnone. Neck PainReported by PatientHPIFor location, patient reportsbilateral,posterior, andlateral. For quality, patient reportsstabbing,throbbing,a holley, andradiates to bilateral 5th digit. For severity, patient reportssevere,pain level 8/10, andworst pain 8/10. For timing, patient reportschronic. For context, patient reportsoveruseandatraumatic . For alleviating factors, patient reportsheat,ice,rest,exerci se, andstretching. For aggravating factors, patient reportstwisting,rom, andexercise. For neurological complaints, patient reportsnone. For treatment, patient reportsnsaidsandsteroids. For prior imaging, patient reportsx-rayandmri. Jason stewart [place] - [facility] 03/30/2023 13:33:12
--- OUTSIDE RECORDS SUMMARY | 2025-04-03 13:21 | XMS_ITS | Encounter Summary ---
Author Organization [facility] Address [address] [place] [address] Care Team Providers Care Shoe Clerk Name Role Phone Jax Hastings Primary Care Provider [phone] Encounter Details Date Type Department Care Team (Late st Contact Info) Description 12/11/2023 Orders Only [facility] [address], [place] [id number] Amber Mi MA Social History Tobacco Use [...] [facility] [address] [place] [address] Oziel Cadena MD [address] [place] [address] 01/08/2026 8:30 AM EDT Office Visit [facility] [address] [place] [address] Anahi Franco PA [address] [place] [address] documented as of this encounter Visit Diagnoses Not on filedocumented in this encounter Care Teams Shoe Clerk Relationship Specialty Start Date End Date Jax Hastings DO PCP - General Family Medicine 02/13/23 documented as of this encounter
--- OUTSIDE RECORDS SUMMARY | 2025-04-03 13:21 | XMS_ITS | Encounter Summary ---
Author Organization [facility] Address [address] [place] [address] Phone Care Team Providers Care Project Construction Assistant Manager Name Role Phone Jax Hastings DO Primary Care Provider [phone] Helder Saleem MD Unavailable [phone] René Narayanan PA-C Unavailable [phone] Encounter Details Date Type Department Care Team (Late st Contact Info) Description 10/10/2024 Scanned Document [facility] [address] [facility] [address] [place] [address] Doretha Harris MD [address] [place], [place] [id number] Social History Tobacco Use Types Packs/Day Years [...] any time in the past 12 m [facility], were you homeless or living in [...] Description 09/25/2025 9:00 AM EDT Office Visit [facility] [address] [facility] [address] [place] [address] Doretha Harris MD [address] [place] [address] documented as of this encounter Goals Goal [...] documented as of this encounter Care Teams Project Construction Assistant Manager Relationship Specialty Start Date End Date Jax Hastings DO [address] [place] [address] PCP - General 01/03/19 [place] [address] [place] [address] Consulting Physician Hematology and Oncology 10/05/23 René Narayanan PA-C [address] [place] [address] Physician Grinder Operator Neurosurgery 12/12/23 documented as of this encounter
--- OUTSIDE RECORDS SUMMARY | 2025-04-03 13:21 | XMS_ITS | Encounter Summary ---
Author Organization [facility] Address [address] [place] [address] Phone Care Team Providers Care Manager Hris Name Role Phone Jax Hastings DO Primary Care Provider [phone] Helder Saleem MD Unavailable [phone] René Narayanan PA-C Unavailable [phone] Encounter Details Date Type Department Care Team (Late st Contact Info) Description 12/12/2023 Scanned Document [facility] [address] [place] [address] René Narayanan PA-C [address] [facility] [address], [facility] [address] [place], [place] [id number] Social History Tobacco Use Types Packs/Day Years [...] Description 09/25/2025 9:00 AM EDT Office Visit [facility] [address] [facility] [address] [place] [address] Doretha Harris MD [address] [place] [address] documented as of this encounter Visit Diagnoses Not on filedocumented in this encounter Additional Health Concerns Assessment Noted Time A fall risk assessment has been complete d for the patient 12/12/2023 1:10 PM EDT documented as of this encounter Care Teams Manager Hris Relationship Specialty Start Date End Date Jax Hastings DO [address] [place] [address] PCP - General 01/03/19 [place] [address] [place] [address] Consulting Physician Hematology and Oncology 10/05/23 René Narayanan PA-C [address] [place] [address] Physician Licensed Midwife Neurosurgery 12/12/23 documented as of this encounter
--- OUTSIDE RECORDS SUMMARY | 2025-04-03 13:21 | XMS_ITS | Encounter Summary ---
Author Organization [facility] Address [address] [place] [address] Phone Care Team Providers Care Transplant Rn Name Role Phone Jax Hastings DO Primary Care Provider [phone] Helder Saleem MD Unavailable [phone] René Narayanan PA-C Unavailable [phone] Encounter Details Date Type Department Care Team (Late st Contact Info) Description 01/09/2024 Scanned Document [facility] [address] [place] [address] Doretha Harris MD [address] [place], [place] [id number] Social History Tobacco Use Types Packs/Day Years [...] EDT Office Visit [facility] [address] [facility] [address] [place] [address] Doretha Harris MD [address] [place] [address] documented as of this encounter Goals Goal [...] documented as of this encounter Care Teams Transplant Rn Relationship Specialty Start Date End Date Jax Hastings DO [address] [place] [address] PCP - General 01/03/19 [place] [address] [place] [address] Consulting Physician Hematology and Oncology 10/05/23 René Narayanan PA-C [address] [place] [address] Physician Engineered Wood Designer Neurosurgery 12/12/23 documented as of this encounter
--- OUTSIDE RECORDS SUMMARY | 2025-04-03 13:21 | XMS_ITS | Encounter Summary ---
Author Organization [facility] Address [address] [place] [address] Care Team Providers Care Braille Coder Name Role Phone AndreaJax meneses Neisha JOSÉ Primary Care Provider [phone] Encounter Details Date Type Department Care Team (Late st Contact Info) Description 02/19/2023 Abstract [facility] [address] [facility] [address] [place] [address] Mary Henderson, NICK [address] [place] [address] Social History Tobacco Use Types Packs/Day Years [...] Clinical Support [facility] [address] [place] [address] Oziel Cadena MD [address] [facility] [address] [place] [address] 01/08/2026 8:30 AM EDT Office Visit [facility] [address] [place] [address] Anahi Franco PA [address] [place] [address] documented as of this encounter Visit Diagnoses Not on filedocumented in this encounter Care Teams Braille Coder Relationship Specialty Start Date End Date Jax Hastings DO PCP - General Family Medicine 02/13/23 documented as of this encounter
--- OUTSIDE RECORDS SUMMARY | 2025-04-03 13:21 | XMS_ITS | Encounter Summary ---
Author Organization [facility] Address [address] [place] [address] Phone Care Team Providers Care Ict Support Engineer Name Role Phone Jax Hastings DO Primary Care Provider [phone] Jax Hastings DO Unavailable Jax Hastings DO Unavailable Helder Saleem MD Unavailable [phone] René Narayanan PA-C Unavailable [phone] Encounter Details Date Type Department Care Team (Late st Contact Info) Description 02/13/2019 Orders Only [facility] [address] [place] [address] Conversion, Onbase Social History Tobacco Use Types [...] Description 09/25/2025 9:00 AM EDT Office Visit [facility] [address] [facility] [address] [place] [address] Doretha Harris MD [address] [place], [place] [phone] Scheduled Orders Name Type Priority Associated Diagnoses Belén barnes Schedule OUTSIDE LAB SCAN Lab Ordered: 02/13/2019 documented as of this encounter Visit Diagnoses Not on filedocumented in this encounter Care Teams Ict Support Engineer Relationship Specialty Start Date End Date Jax Hastings DO [address] [place] [address] PCP - General 01/03/19 Jax Hastings DO [address] [place], [place] [id number] PCP - [place] [facility] PCP 09/16/21 11/15/22 Jax Hastings DO [address] [place], [place] [id number] [facility] 10/16/21 12/15/22 [place] [address] [place] [address] Consulting Physician Hematology and Oncology 10/05/23 René Narayanan PA-C [address] [place] [address] Physician Residential Specialist Neurosurgery 12/12/23 documented as of this encounter
--- OUTSIDE RECORDS SUMMARY | 2025-04-03 13:21 | XMS_ITS | Clinical Summary ---
Author Organization [facility] Address [address] [place] [address] Care Team Providers Care Legal Coordinator Name Role Phone Jax Hastings DO Primary Care Provider [phone] Allergies Active Allergy Reactions Criticality Noted Date [...] 1 MG tablet 4 Active HYDROcodone-vanda taminophen ([place]) 5-325 MG tablet 4 Active terbinafine (LamISIL [...] [facility] [place] [facility] [address] [facility] [address] [place] [address] Ary Lugo, RT. R 03/24/2025 Telephone [facility] [address] [facility] [address] [place] [address] Ary Lugo, RT. R 03/18/2025 11:30 AM EDT Clinical Support [facility] [address] [facility] [address] [place] [phone] Oziel Cadena MD Other nerve root and plexus disorders (Primary Dx); Acute pain of left shoulder; Acute pain of right shoulder 03/18/2025 Bamboo flowsheet [facility] [address] [place] [address] Oziel Cadena MD 03/18/2025 Travel 03/17/2025 Travel 02/04/2025 2:30 PM EDT [facility] [address] [facility] [address] [place] [address] Oziel Cadena MD Acute pain of right shoulder (Primary Dx); Nerve root and plexus disorder, unspecified; Acute pain of left shoulder 02/04/2025 Bamboo flowsheet [facility] [address] [place] [address] Oziel Caedna MD 02/04/2025 Travel 01/28/2025 Travel 01/27/2025 Telephone [facility] [address] [facility] [address] [place] [address] Mayte Morrison MA 01/08/2025 10:20 AM EDT Office Visit [facility] [address] [facility] [address] [place] [address] Anahi Franco PA Melanocytic nevus of trunk (Primary Dx); Seborrheic keratosis; Inflamed seborrheic keratosis; Actinic keratosis; Capillary angioma; History of SCC (squamous cell carcinoma) of skin 01/08/2025 Bamboo flowsheet [facility] [address] [place] [address] Anahi Franco PA 01/08/2025 Travel 01/07/2025 Travel from Last 3 Months Immunizations Immunization [...] Neurology [address] [place] [address] Oziel Cadena MD [address] [facility] [address] [place] [id number] 01/08/2026 8:30 AM EDT Office Visit [facility] [address] [place] [address] Anahi Franco PA [address] [place] [address] Health Maintenance Due Date Last Done Comments CT Colonography 1962 Colonoscopy 1962 Colorectal Cancer Screening 1962 FIT-DNA 1962 FIT 1962 FOBT 1962 Sigmoidoscopy 1962 Influenza Vaccine (#1) 2025 Procedures Procedure Name Priority Date/Time Associated Diagnosis Comments CRYOTHERAPY SKIN LESION Routine 01/09/20 10:27 AM EDT Inflamed seborrheic keratosis CRYOTHERAPY SKIN LESION Routine 01/09/20 10:23 AM EDT Actinic keratosis from Last 3 Months Results * Cryotherapy, skin lesion (01/08/2025 10:27 AM EDT) Anahi SAAVEDRA DERM PROCEDURE ORDERABLES Geetha l Result * Cryotherapy, skin lesion (01/08/2025 10:23 AM EDT) Anahi SAAVEDRA DERM PROCEDURE ORDERABLES Geetha l Result from Last 3 Months Insurance [facility] MED[facility] Care Teams Legal Coordinator Relationship Specialty Start Date End Date Jax Hastings DO PCP - General Family Medicine 02/13/23
--- OUTSIDE RECORDS SUMMARY | 2025-04-03 13:21 | XMS_ITS | Encounter Summary ---
Author Organization [facility] Address [address] [place] [address] Care Team Providers Care Low Altitude Air Defense Officer Name Role Phone Jax Hastings DO Primary Care Provider [phone] Reason for Referral * Imaging (Routine) - Closed Specialty Diagnoses / Procedures Referred By Roverto t Referred To Contact [facility] Diagnoses Neoplasm of brain (HCC) Procedures MR brain w and wo contrast routine Oziel Cadena MD [address] [facility] [address] [address] Phone: tel: fax: [place] [facility] [address] [place] [address] Phone: tel: fax: Referral ID Status Reason Start Date Expiration Date Visits Re quested Visits Authorized [id number] Closed 03/25/2025 09/21/2025 1 0 Encounter Details Date Type Department Care Team (Late st Contact Info) Description 03/24/2025 Telephone [facility] [address] [address] Ary Lugo, RT. R Social [...] in office and said wants it at [facility] * Telephone Encounter - Jovani Mi MA [...] Neurology [address] [place] [address] Oziel Cadena MD [address] [facility] [address] [place] [id number] 01/08/2026 8:30 AM EDT Office Visit [facility] [address] [place] [address] Anahi Franco PA [address] [place] [address] Scheduled Orders Name Type Priority Associated Diagnoses Orde r Schedule MR brain w and wo contrast routine Imaging Routine Neoplasm of brain (HCC) Expected: 03/25/2025, Expires: 03/25/2026 documented as of this encounter Visit Diagnoses Diagnosis Neoplasm of brain (HCC)- Primary Neoplasm of unspecified nature of brain documented in this encounter Care Teams Low Altitude Air Defense Officer Relationship Specialty Start Date End Date Jax Hastings DO PCP - General Family Medicine 02/13/23 documented as of this encounter
--- OUTSIDE RECORDS SUMMARY | 2025-04-03 13:24 | XMS_ITS | CCD ---
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 Name Role Phone Griselda Hastings Primary Care Provider [phone] Griselda Hastings Attending Provider Griselda Hastings Unavailable Unavailable Unavailable Griselda Hastings Unavailable Sheng Schneider Unavailable Griselda Hastings Primary Care Provider Griselda Hastings Unavailable DO Griselda Hastings Primary Care Provider [phone] MD Oziel Cadena Attending Provider BAILEY Gaytan Emergency Provider [phone] MD Loi Wong Jr Emergency Provider Unavailable Unavailable DO Griselda Hastings Primary Care Provider MD Oziel Cadena Attending Provider BAILEY Gaytan Emergency Provider MD Loi Wong Jr Emergency Provider BAILEY Mota Attending Provider BAILEY Mota Attending Provider DO Griselda Hastings Primary Care Provider MD Oziel Cadena Attending Provider [phone] Trish Carney Unavailable Griselda Hastings Primary Care Provider KunGriselda meneses Unavailable Tammi NORRIS, Oziel Ruiz Unavailable [phone] FLORES CAT Attending Unavailable FLORES CAT Admitting Unavailable KUNS, GRISELDA WRIGHT Primary Care Unavailable Kuns, DO Griselda Primary Care Provider Kuns, DO Griselda Attending Provider [phone] MD Lima Joseph Attending Provider Dr. BRET HDEZ Attending Unavailable PCP, OTHER Primary Care Unavailable PCP, Other Primary Care Physician [phone] Kuns, DO Griselda Primary Care Provider [phone] BAILEY Gaytan Emergency Provider quentin, DO Rohit Mullins Emergency Provider Darling, DO Griselda Attending Provider Lilliam Cason Unavailable Andreas, DO Griselda Primary Care Provider BAILEY Gaytan Emergency Provider Tuquentin, DO Rohit Mullins Emergency Provider Darling, DO Griselda Attending Provider [phone] MD Lilliam Cason Attending Provider Ruddy Harvey Unavailable [phone] BAILEY Mota Attending Provider MD Ruddy [...] Attending Provider AndreasGriselda Zackary Primary Care Provider Oziel Cadena MD Unavailable Kuns DO, Griselda R Primary Care Provider Milks PA-C, Solomon A Unavailable Milks PA-C, Solomon A Unavailable [phone] Kuns DO, Griselda R Primary Care Provider Andreas DO, Griselda Primary Care Provider Milks PA-C, Solomon A Attending Provider Andreas DO, Griselda Primary Care Provider Milks PA-C, Solomon A Attending Provider Wes NORRIS, Ruddy Moraes Attending Provider [phone] Daisy Paul MD Emergency Provider [phone] Kuns DO, Griselda R Primary Care Provider [phone] Andreas DO, Griselda Primary Care Provider Manisha Negron APRN Emergency Provider Kuns DO, Griselda Other Provider Manisha Negron APRN Attending Provider [phone] Milks PA-C Solomon Nae Attending Provider Andreas [...] Unavailable Conchita NORRIS, Nathanael Attending Provider Kuns DO Griselda Attending Provider [phone] HARRIS, XIAOFEI Referring Unavailable KUNS, GRISELDA R [...] Provider Danya CERVANTES, Elizabeth Mullins Attending Provider Conchita NORRIS, Nathanael Other Provider Solomon Montez APRN Attending Provider Kuns , Griselda Attending Provider [phone] Roxy NORRIS, Sarina Badillo Attending Unavailable Roxy NORRIS, Sarina Barnettytsharla Attending Unavailable Giedraitis , Andrius Vytautas Attending Unavailable Giedraitis , Andrius Vytautscott Attending Unavailable Giedraitis , Andrius Vytautas Attending Unavailable Giedraitis , Andrius Vytautas Attending Unavailable Kuns DO, Griselda Primary Care Provider Solomon Montez APRN Attending Provider Roxy NORRIS, Sarina Attending Provider Sofia Arias DO Attending Provider Kuns DO, Griselda Primary Care Provider Kun DO, Griselda Attending Provider Manisha Negron Attending Unavailable Manisha Negron Admitting Unavailable Kuns, Griselda Primary Care Unavailable Daisy Paul Attending Unavailable Daisy Paul Admitting Unavailable Kuns, Griselda Primary Care Unavailable Manisha Negron Attending Unavailable OliviaeManisha N Admitting Unavailable Kuns, Griselda Consulting Unavailable Kuns, Griselda Primary Care Unavailable Ruddy Harvey Attending Unavailabl e Ruddy Harvey Admitting Unavailabl e Kuns, Griselda Primary Care Unavailable Kuns, Griselda Primary Care Unavailable Milks, Solomon A Attending Unavailable Milks, Solomon A Admitting Unavailable Kuns, Griselda Admitting Unavailable Kuns, Griselda Attending Unavailable Kuns, Griselda Primary Care Unavailable Kuns, Griselda Admitting Unavailable Kuns, Griselda Attending Unavailable Kuns, Griselda Primary Care Unavailable Milks, Solomon A Attending Unavailable Milks, Solomon A Admitting Unavailable Kuns, Griselda Primary Care [...] (antibiotic) (1 source) Cephalexin Drug Allergy 8 [facility] (20 sources) Cephalexin; Translations: [CEPHALEXIN] Drug Allergy 8 [facility] (20 sources) Cephalexin; Translations: [Keflex] Drug Allergy rash [facility] Other (1 source) Cephalexin; Translations: [Keflex] [facility] [place] (17 sources) Keflet; Translations: [KEFLET] Propensity to adverse reactions 4 [facility] (4 sources) varenicline; Translations: [varenicline] Drug Allergy 5 [facility] (1 source) ALLERGIES NOT ON FILE; Translations: [ALLERGIES NOT ON FILE] Propensity to adverse reactions (disorder) [facility] Repository NEGATED: Highlighted row has been ruled out! (1 source) natural latex rubber; Translations: [LATEX, NATURAL RUBBER] Drug allergy (disorder) [place] NEGATED: Highlighted row has been ruled out! (1 source) No IV Contrast Allergy.; Translations: [IV Dye, Iodine Containing] Drug allergy (disorder) [place] Medications Current Medications Medication Drug Class(es) Dates [...] 28, 2024 10:44am Start: 10-10-2023 HYDROcodone-ac etaminophen (Milroy) 5-325 MG tablet 10/10/2023 Active Start: 09-05-2023 End: 04-01-2024 take 1 tablet by mouth every eight hours as needed Hydrocodone-Acetaminophen 5-325 mg table t Discontinued TAB PO Every 8 hours as needed September 05, 2023 12:00am April 01, 2024 11:01am Start: 06-04-2023 take 1 tablet by myles th once daily as needed for pain HYDROcodone-acetaminophen (Milroy) 5-325 MG tablet take 1 tablet orally daily NEEDED FOR PAIN MUST LAST 30 DAYS 10/10/2023 Active Start: 12-10-2017 End: 04-29-2018 take 1 tablet by mouth every four hours Hydrocodone-Acetaminophen (Milroy) 5-325 mg tablet Discontinued 1 TAB PO Q4H December 10, 2017 April 29, 2018 3:12pm End: 04-10-2024 take 1.5 tablets by mouth twice daily as needed for pain HYDROcodone-acetaminophen (Milroy) 5-325 mg tablet Take 1.5 tablets by [...] 9:01am 1 ml alirocumab 75 mg/ml auto-injector (4 sources) PCSK9 Inhibitor Start: 11-03-2024 inject 75 mg by subcutaneous injection every other week Alirocumab (Praluent Pen) 75 mg/mL pen injector Active 75 MG SUBCUT Q14D 7 November 03, 2024 12:00am Complies with drug [...] mouth once daily Citalopram 20 mg tablet Active 20 MG PO Daily February 19, 2025 11:51am Complies with drug therapy Start: 12-03-2023 End: 02-19-2025 take 1 tablet [...] 1 tablet by mouth once daily Clopidogrel 75 mg tablet Active 75 MG PO Daily February 19, 2025 12:00am Complies with drug therapy Start: 04-23-2024 clopidogrel (P lavix) 75 mg [...] guidelines link Multiple Vitamin (MULTIVITAMIN ADULT PO) (20 sources) [...] 1 tablet by mouth once daily Start: 02-15-2024 take 1 tablet by myles th once [...] (15 sources) take 1 capsule by mo [facility] once daily Multivitamin capsule Take 1 capsule by mouth once daily. Active take 1 capsule by mouth once danitza ly Multivitamin capsule Take 1 capsule by mouth once daily. 0 Active Comment on above: Take 1 capsule by mo [facility] once daily. Naloxone (1 source) Opioid Antagonist [...] pantoprazole 40 mg delayed release oral tablet (14 sources) Proton Pump Inhibitor Start: 11-17-2024 take [...] November 17, 2024 2:16pm polyethylene glycol 3350 17256 mg powder for oral solution (1 source) Osmotic Laxative Start: 04-09-2024 17 g, oral, 2 times daily, First dose on Sun04/09/24 at 2100, Phase II/On Unit, Bowel Regimen - for prevention of constipation. tiZANidine 4 mg oral capsule (20 sources) Central alpha-2 Adrenergic Agonist Start: 02-19-2025 take 1 capsule by mouth twice daily as needed Tizanidine 4 mg capsule Active 4 MG PO Twice daily as needed February 19, 2025 12:00am Complies with drug therapy Start: 08-29-2022 End: 11-03-2024 take 1 tablet by mouth once daily at bedtime Tizanidine (Zanaflex) 4 mg tablet Discontinued 4 MG PO Daily at bedtime August 02, 2023 1:00am December 03, 2023 10:58am FreeTextSi tablet as needed Orally at bedtime; Note: Source Status: Taking; Provider: Satish Rogres Start: 04-17-2022 End: 12-29-2024 take 1 capsule [...] 01-Nov-2021 Active take 1 capsule by mo [facility] once daily at bedtime [...] AFTERNOON and 2 at bedtime as directed [id number] 200 actuat albuterol 0.09 mg/actuat metered dose [...] Dihydropyridine Calcium Channel Clara Start: 02-01-20 End: 04-01-20 take 1 tablet by mouth once daily [...] 26, 2023 12:00am May 07, 2023 9:23am [id number] Dfe-Fwrq-Ieq-Asb-C (10 sources) Osmotic Laxative, Vitamin C Start: 10-10-2024 End: 10-24-2024 [id number] Pud-Msdv-Hvj-Asb-C (Plenvu) 140-9-5.2 gram powder in packet, sequential Discontinued 0 PO .COMPLEX 3 October 10, 2024 12:00am October 24, 2024 11:48am PO Start: 10-10-2024 [id number] Cantrell f-Lplh-Knj-Asb-C (Plenvu) 140-9-5.2 gram powder in packet, sequential [...] tablet Discontinued 250 MG PO Daily 4 4 September 20, 2024 12:00am October 06, [...] Active bupivacaine hydrochloride 5 mg/ml injectable solution (18 [...] Comment on above: Take 1 tablet by [facility] twice daily. dexamethasone phosphate 4 mg/ml injectable [...] injection once 4 mg, Intramuscular, Once, On 05/22/24 at 1330, For 1 dose Start: [...] Active doxycycline hyclate 100 mg oral capsule (14 sources) Tetracycline-class Drug Start: 11-25-2024 End: 02-19-2025 [...] Comment on above: TAKE 1 CAPSULE BY [facility] EVERY 12 HOURS FOR 10 DAYS DULoxetine 20 mg delayed release oral capsule (4 sources) Serotonin and Norepinephrine Reuptake Inhibitor take 1 capsule by mouth every twelve hours Cymbalta 20 MG 1 capsule Orally Twice a day Not-Taking 1 ml evolocumab 140 mg/ml auto-injector (4 sources) PCSK9 Inhibitor Start: End: inject 140 mg by subcutaneous injection every other week Evolocumab (Repatha Sureclick) 140 mg/mL pen injector Discontinued 140 MG SUBCUT EVERY 2 WEEKS 6 October 27, 2024 12:00am November 03, 2024 9:56am Evolocumab (Repatha Sureclick) 140 mg/mL pen injector (3 sources) Start: End: inject 140 mg by subcutaneous injection every other week Evolocumab (atha Samick) 140 mg/mL pen injector Discontinued 140 MG [...] 10/17/2022 Discontinued take 1 capsule by [facility] every twenty-four hours Gabapentin 100 MG 1 capsule Orally Once a day Not-Taking/PRN Comment on above: Take 1 capsule by [facility] three times daily for 30 days. gadoterate meglumine (Dotarem) 0.5 mmol/mL contrast injection 30 mL (1 source) Start: End: inject 30 mL intravenously once 30 mL, intravenous, Once in imaging, Starting on Lynda 12/13/23 at 0817, For 1 dose, Administer [...] 9:01am [facility] daily at mealtime as [...] 2023 1:48pm take 1 capsule by [facility] once daily at mealtime indomethacin SR (Indocin SR) 75 MG ER capsule indomethacin ER 75 mg capsule,extended release take 1 capsule by mouth once daily with food 0 Active take 1 capsule by [facility] every twenty-four hours Indomethacin ER 75 MG 1 capsule with food Orally Once a day prn Active Ketorolac (20 sources) Nonsteroidal Anti-inflammatory Drug, Cyclooxygenase Inhibitor Start: 01-27-2015 Toradol per 15 mg Jan, 2 mL lisinopril 10 mg oral tablet (20 sources) Angiotensin Converting Enzyme Inhibitor Start: 10-18-2023 End: 04-01-2025 take 1 tablet by mouth once daily [...] 1:50pm ondansetron 4 mg disintegrating oral tablet (13 sources) Serotonin-3 Receptor Antagonist Start: 10-06-2024 End: 10-24-2024 take 1 tablet by mouth every eight hours as needed for nausea and vomiting Ondansetron 4 mg tablet,disintegrating Discontinued 4 MG PO Every 8 hours as needed for nausea and vomiting 9 October 06, 2024 12:00am October 24, 2024 [...] Coronary arteriosclerosis; Translations: [Atherosclerotic heart disease of morongo coronary artery without angina pectoris] Onset: 4 02-26-2024 Chronic Disorders of lipid metabolism (20 sources) Hyperlipidemia; Translations: [Hyperlipidemia, unspecified] Onset: 2 Resolved: 2 Chronic Esophageal disorders (8 sources) Gastroesophageal reflux disease; Translations: [Gastro-esophageal reflux disease without esophagitis] 01-12-2025 Chronic Essential hypertension (20 sources) Essential hypertension; Translations: [Essential (primary) hypertension] Onset: 3 Chronic Fluid and electrolyte disorders (12 sources) Dehydration; Translations: [Dehydration] 10-06-2024 Episodic Glaucoma [...] 01-08-2025 Episodic Other and unspecified benign neoplasm (9 sources) Polyp of colon; Translations: [Polyp of [...] source) Tinnitus, bilateral Episodic Other gastrointestinal disorders (8 sources) Altered bowel function; Translations: [Change in bowel habit] 11-04-2024 Episodic Other gastrointestinal disorders (8 sources) Dysphagia; Translations: [Dysphagia, unspecified] 11-04-2024 Episodic Other gastrointestinal disorders (8 sources) Diarrhea; Translations: [Diarrhea, unspecified] 11-04-2024 Episodic [...] Episodic Other nutritional; endocrine; and metabolic disorders (7 sources) Unexplained weight loss ; Translations: [Abnormal weight loss] 11-04-2024 Episodic Other nutritional; endocrine; and metabolic disorders (3 sources) Abnormal weight loss; Translations: [Loss of weight] 10-10-2024 Episodic Other screening for suspected conditions (not mental disorders or infectious disease) (20 sources) Encounter for screening for malignant neoplasm of prostate; Translations: [Magnetic resonance imaging of brain abnormal] Onset: 2 Resolved: 2 Episodic Other skin disorders (20 sources) Mass [...] caused by tuberculosis or sexually transmitted disease) (13 sources) Pneumonia; Translations: [Pneumonia, unspecified organism] 09-20-2024 Episodic Residual codes; unclassified (4 sources) Postprocedural state finding; Translations: [Presence of other specified functional implants] 01-12-2025 Chronic Residual codes; unclassified (20 sources) Insomnia; Translations: [Insomnia, unspecified] Onset: 3 12-10-2022 Episodic Residual codes; unclassified (2 sources) Insomnia, unspecified Episodic Residual codes; unclassified (18 sources) History of cervical discectomy; Translations: [Other specified postprocedural states] 07-03-2024 Episodic Residual codes; unclassified (4 sources) Other specified postprocedural states; Translations: [Other postprocedural status] 07-03-2024 Episodic Residual codes; unclassified (7 sources) Early satiety; Translations: [Early satiety] 11-04-2024 [...] or radiculopathy, cervical region] Onset: 3 Chronic Spondylosis; intervertebral disc disorders; other back problems (20 sources) Neck pain; Translations: [Cervicalgia] Onset: 2 Resolved: 2 Episodic Substance-related disorders (20 sources) Nicotine dependence [...] Surgery; Translations: [Post-op Spine Surgery] Onset: 5 Viral infection (15 sources) Respiratory syncytial virus infection; Translations: [Other specified viral diseases] Onset: 5 Episodic Past or Other Problems Problem Classification Problem Date Documented Da te Episodic/Chronic Blindness and vision defects (20 sources) Unspecified [...] acute postprocedural pain] Onset: 04-30-2024 Episodic Other upper respiratory disease (1 source) [...] US ankle/arm indiceson 02-27 US ankle/arm indices [facility] [address] Ultrasound Report Signed Patient: Shantel Melendez MR#: [id number] : 1960 Acct:[id number] Age/Sex: 64 / M ADM Date: 02/26/25 Loc: Room: Type: [facility] Attending Dr: Griselda Hastings DO Ordering Provider: [...] Harvey MD,FACS,FSVS 02/27/2025 7:42 AM Dictation Location: [facility] Tech: Agueda Helm Transcribed By: MARISA 02/27/25741 Dictated By: Ruddy Harvey MD 02/27/2541 Signed By: 02/27/25741 Normal [facility] Basophils Auto (Bld) [#/Vol] Ordered By: Sofia Marker on 02-18-2025 Basophils (Bld) [#/Vol] 0.1 10 3/uL 0.0-0.1 [facility] Basophils/100 WBC Auto (Bld) Ordered By: Sofia Marker on 02-18-2025 Basophils/100 WBC (Bld) 0.7 % 0.2-2.0 [facility] Eosinophils/100 WBC Auto (Bl d)Ordered By: Sofia Marker on 02-18-2025 Eosinophils/100 WBC (Bld) 1.1 % 0.9-7.0 [facility] Erythrocyte distribution wid th Auto (RBC) [Ratio]Ordered By: Sofia Marker on 02-18-2025 Erythrocyte distribution width (RBC) [Ratio] 13.4 % 11.0-15.0 [facility] Fibrin D-dimer [Presence] in Platelet poor plasma by Latex agglutinationOrdered By: Sofia Marker on 02-18-2025 Fibrin D-dimer LA Ql (PPP) 0.56 mg/L FEU <=0.59 [facility] Comment on above: Increases in D-Dimer [...] on 02-18-2025 Globulin (S) [Mass/Vol] 2.5 g/dL [facility] Glomerular filtration rate ( GFR) estimation in non- AmericanOrdered By: Sofia Marker on 02-18-2025 GFR/1.73 sq M.predicted among non-blacks MDRD (S/P/Bld) [Vol rate/Area] mL/min/{1.73_m2} >=60 mL/min/1.7 3m 2 [facility] Hematocrit Auto (Bld) [Volum e fraction]Ordered By: Sofia Marker on 02-18-2025 Hematocrit (Bld) [Volume fraction] 39.7 % Low 42.0-54.0 [facility] Hemoglobin [Mass/volume] in BloodOrdered By: Sofia Marker on 02-18-2025 Hemoglobin (Bld) [Mass/Vol] 13.8 g/dL Low 14.0-18.0 [facility] Laboratory - Chemistry and C hemistry - challengeOrdered By: Sofia Marker on 02-18-2025 Albumin [Mass/Vol] 3.0 g/dL Low 3.4-5.0 [facility] ALP [Catalytic activity/Vol] 68 U/L 46-116 [facility] ALT [Catalytic activity/Vol] 18 U/L 16-63 [facility] AST [Catalytic activity/Vol] 11 U/L Low 15-37 [facility] Bilirubin [Mass/Vol] 0.8 mg/dL 0.2-1.0 [facility] Calcium [Mass/Vol] 9.5 mg/dL 8.5-10.1 [facility] Chloride [Moles/Vol] 108 mmol/L High 98-107 [facility] CO2 [Moles/Vol] 27.5 mmol/L 21.0-32.0 [facility] Creatinine [Mass/Vol] 0.87 mg/dL 0.70-1.30 [facility] GFR/1.73 sq M.predicted MDRD (S/P/Bld) [Vol rate/Area] mL/min/{1.73_m2} >=60 mL/min/1.7 3m 2 [facility] Glucose [Mass/Vol] 78 mg/dL 74-106 [facility] Potassium [Moles/Vol] 4.1 mmol/L 3.5-5.1 [facility] Protein [Mass/Vol] 5.5 g/dL Low 6.4-8.2 [facility] Sodium [Moles/Vol] 144 mmol/L 136-145 [facility] Urea nitrogen [Mass/Vol] 11.0 mg/dL 7.0-18.0 [facility] Urea nitrogen/Creatinine [Mass ratio] 12.6 mg/mg [facility] - Hematology and Cell countsOrdered By: Sofia Marker on 02-18-2025 Immature granulocytes/100 WBC (Bld) 0.3 % 0.0-0.5 [facility] Leukocytes [#/volume] correc mone for nucleated erythrocytes in Blood by Automated counOrdered By: Sofia Marker on 02-18-2025 WBC corrected for nucl RBC Auto (Bld) [#/Vol] 7.4 10 3/uL 4.0-11.0 [facility] Lymphocytes Auto (Bld) [#/Vo l]Ordered By: Sofia Marker on 02-18-2025 Lymphocytes (Bld) [#/Vol] 2.1 10 3/uL 1.2-3.8 [facility] Lymphocytes/100 WBC Auto (Bl d)Ordered By: Sofia Marker on 02-18-2025 Lymphocytes/100 WBC (Bld) 28.8 % 20.5-60.0 [facility] MCH Auto (RBC) [Entitic mass ]Ordered By: Sofia Marker on 02-18-2025 MCH (RBC) [Entitic mass] 32.5 pg 25.9-34.0 [facility] MCHC Auto (RBC) [Mass/Vol]Or dered By: Sofia Marker on 02-18-2025 MCHC (RBC) [Mass/Vol] 34.8 g/dL 29.9-35.2 [facility] MCV Auto (RBC) [Entitic vol] Ordered By: Sofia Marker on 02-18-2025 MCV (RBC) [Entitic vol] 93.4 fL 80.0-94.0 [facility] Monocytes Auto (Bld) [#/Vol] Ordered By: Sofia Marker on 02-18-2025 Monocytes (Bld) [#/Vol] 0.4 10 3/uL 0.3-0.8 [facility] Monocytes/100 WBC Auto (Bld) Ordered By: Sofia Marker on 02-18-2025 Monocytes/100 WBC (Bld) 5.6 % 1.7-12.0 [facility] Neutrophils Auto (Bld) [#/Vo l]Ordered By: Sofia Marker on 02-18-2025 Neutrophils (Bld) [#/Vol] 4.7 10 3/uL 1.4-6.5 [facility] Neutrophils/100 WBC Auto (Bl d)Ordered By: Sofia Marker on 02-18-2025 Neutrophils/100 WBC (Bld) 63.5 % 43.0-75.0 [facility] No Panel InformationOrdered By: Sofia Marker on 02-18-2025 Eosinophils # (Auto) 0.1 10 3/uL 0.0-0.7 [facility] Immature Granulocyte # (Auto) 0.02 10 3/uL 0.00-0.03 [facility] Troponin I High Sensitivity 11.3 pg/mL 4.0-76.1 [facility] Comment on above: CUT-OFF POINTS HAVE [...] volume (Bld) [Entitic vol] 11.4 fL 9.5-13.5 [facility] Platelets Auto (Bld) [#/Vol] Ordered By: Sofia Marker on 02-18-2025 Platelets (Bld) [#/Vol] 246 10 3/uL 150-450 [facility] RBC Auto (Bld) [#/Vol]Ordere d By: Sofia Marker on 02-18-2025 RBC (Bld) [#/Vol] 4.25 10 6/uL Low 4.70-6.10 [facility] Serum or plasma albumin/glob ulin mass ratioOrdered By: Sofia Marker on 02-18-2025 Albumin/Globulin [Mass ratio] 1.2 {ratio} [facility] Serum or plasma anion gap de terminationOrdered By: Sofia Marker on 02-18-2025 Anion gap [Moles/Vol] 12.6 mmol/L [facility] 36on 02-13-2025 36 Patient scheduled fo r 03/24/25 @ 10:30am Normal [facility] 36 LVM for pt to call fatimah ferrer to schedule consult with Dr. Figueroa to discuss SCS placement. Imaging requested. Please transfer pt to pre reg after call. Please inform fiction and nonfiction prose writer when scheduled. [employer] reps will need notified. Normal [facility] Telephoneon 02-13-2025 Telephone [phone] Shantel Melendez 1960 M Date Provider Department Center 02/13/2025 [facility]OC[facility] SURG Second Fl No family history on file Normal [facility] Activated partial thrombopla stin time (aPTT) in platelet poor plasma by coagulation aOrdered By: Andrius Giedraitis on 01-27-2025 aPTT Coag (PPP) [Time] 24.2 s 22.3-36.2 [facility] Basophils Auto (Bld) [#/Vol] Ordered By: Andrius Giedraitis on 01-27-2025 Basophils (Bld) [#/Vol] 0.0 10 3/uL 0.0-0.1 [facility] Basophils/100 WBC Auto (Bld) Ordered By: Andrius Giedraitis on 01-27-2025 Basophils/100 WBC (Bld) 0.2 % 0.2-2.0 [facility] Eosinophils/100 WBC Auto (Bl d)Ordered By: Andrius Giedraitis on 01-27-2025 Eosinophils/100 WBC (Bld) 0.1 % Low 0.9-7.0 [facility] Erythrocyte distribution wid th Auto (RBC) [Ratio]Ordered By: Andrius Giedraitis on 01-27-2025 Erythrocyte distribution width (RBC) [Ratio] 14.1 % 11.0-15.0 [facility] Glomerular filtration rate ( GFR) estimation in non- AmericanOrdered By: Sarina Ramsey on 01-27-2025 GFR/1.73 sq M.predicted among non-blacks MDRD (S/P/Bld) [Vol rate/Area] mL/min/{1.73_m2} >=60 mL/min/1.[address] [place] [address] Hematocrit Auto (Bld) [Volum e fraction]Ordered By: Sarina Ramsey on 01-27-2025 Hematocrit (Bld) [Volume fraction] 38.0 % Low 42.0-54.0 [facility] Hemoglobin [Mass/volume] in BloodOrdered By: Sarina Ramsey on 01-27-2025 Hemoglobin (Bld) [Mass/Vol] 13.0 g/dL Low 14.0-18.0 [facility] INR in Platelet poor plasma by Coagulation assayOrdered By: Sarina Ramsey on 01-27-2025 INR Coag (PPP) [Relative time] 1.09 {INR} [facility] Comment on above: DESIRED INR:2.0-3.0 CONDITIONS NOT LISTED BELOW2.5-3.5 FOR PROSTHETIC HEART VALVE REPLACEMENT2.5-3.5 RECURRENT THROMBOSIS Laboratory - Chemistry and C hemistry - challengeOrdered By: Sarina Ramsey on 01-27-2025 Calcium [Mass/Vol] 9.2 mg/dL 8.5-10.1 [facility] Chloride [Moles/Vol] 106 mmol/L 98-107 [facility] [facility] CO2 [Moles/Vol] 28.7 mmol/L 21.0-32.0 [facility] Creatinine [Mass/Vol] 0.81 mg/dL 0.70-1.30 [facility] GFR/1.73 sq M.predicted MDRD (S/P/Bld) [Vol rate/Area] mL/min/{1.73_m2} >=60 mL/min/1.[address] [place] [address] Glucose [Mass/Vol] 89 mg/dL 74-106 [facility] Potassium [Moles/Vol] 3.7 mmol/L 3.5-5.1 [facility] Sodium [Moles/Vol] 138 mmol/L 136-145 [facility] Urea nitrogen [Mass/Vol] 17.0 mg/dL 7.0-18.0 [facility] Urea nitrogen/Creatinine [Mass ratio] 21.0 mg/mg [facility] - Hematology and Cell countsOrdered By: Sarina Ramsey on 01-27-2025 Immature granulocytes/100 WBC (Bld) 0.2 % 0.0-0.5 [facility] Leukocytes [#/volume] correc mone for nucleated erythrocytes in Blood by Automated counOrdered By: Andguillaume Ramsey on 01-27-2025 WBC corrected for nucl RBC Auto (Bld) [#/Vol] 8.2 10 3/uL 4.0-11.0 [facility] Lymphocytes Auto (Bld) [#/Vo l]Ordered By: Andguillaume Ramsey on 01-27-2025 Lymphocytes (Bld) [#/Vol] 2.4 10 3/uL 1.2-3.8 [facility] Lymphocytes/100 WBC Auto (Bl d)Ordered By: Andguillaume Flowersrajovany on 01-27-2025 Lymphocytes/100 WBC (Bld) 29.3 % 20.5-60.0 [facility] MCH Auto (RBC) [Entitic mass ]Ordered By: Andguillaume Flowersrajovany on 01-27-2025 MCH (RBC) [Entitic mass] 32.1 pg 25.9-34.0 [facility] MCHC Auto (RBC) [Mass/Vol]Or dered By: Andrius Kristieraitis on 01-27-2025 MCHC (RBC) [Mass/Vol] 34.2 g/dL 29.9-35.2 [facility] MCV Auto (RBC) [Entitic vol] Ordered By: Andrius Kristieraitis on 01-27-2025 MCV (RBC) [Entitic vol] 93.8 fL 80.0-94.0 [facility] Monocytes Auto (Bld) [#/Vol] Ordered By: Andrius Giedraitis on 01-27-2025 Monocytes (Bld) [#/Vol] 0.4 10 3/uL 0.3-0.8 [facility] Monocytes/100 WBC Auto (Bld) Ordered By: Andrius Giedraitis on 01-27-2025 Monocytes/100 WBC (Bld) 5.0 % 1.7-12.0 [facility] Neutrophils Auto (Bld) [#/Vo l]Ordered By: Andrius Giedraitis on 01-27-2025 Neutrophils (Bld) [#/Vol] 5.4 10 3/uL 1.4-6.5 [facility] Neutrophils/100 WBC Auto (Bl d)Ordered By: Andrius Giedraitis on 01-27-2025 Neutrophils/100 WBC (Bld) 65.2 % 43.0-75.0 [facility] No Panel InformationOrdered By: Andrius Giedraitis on 01-27-2025 Eosinophils # (Auto) 0.0 10 3/uL 0.0-0.7 [facility] Immature Granulocyte # (Auto) 0.02 10 3/uL 0.00-0.03 [facility] Platelet mean volume Auto (B ld) [Entitic vol]Ordered By: Andrius Giedraitis on 01-27-2025 Platelet mean volume (Bld) [Entitic vol] 11.4 fL 9.5-13.5 [facility] Platelets Auto (Bld) [#/Vol] Ordered By: Andrius Giedraitis on 01-27-2025 Platelets (Bld) [#/Vol] 214 10 3/uL 150-450 [facility] Prothrombin time (PT)Ordered By: Andrius Giedraitis on 01-27-2025 PT Coag (PPP) [Time] 11.5 s 9.0-11.6 [facility] RBC Auto (Bld) [#/Vol]Ordere d By: Andrius Giedraitis on 01-27-2025 RBC (Bld) [#/Vol] 4.05 10 6/uL Low 4.70-6.10 [facility] Serum or plasma anion gap de terminationOrdered By: Sarina Ramsey on 01-27-2025 Anion gap [Moles/Vol] 7.0 mmol/L [facility] No Panel Informationon 01-08 [facility] XR CERVICAL SPINE 2-3 VIEWSo n 12-29-2024 [...] Normal Not Available X-ray reportOrdered By: Yehuda Pzoo on 2024 Study report [facility] [address] [place] [address] XRay Report Signed Patient: Shantel Melendez MR#: [id number] : 1960 Acct:[id number] Age/Sex: 64 / M ADM Date: 5 Loc: XDSHC Room: Type: [facility] Attending Dr: Griselda Hastings DO Copies [...] D.OMaria R 2024 4:30 PM Dictation Location: [place] [address] Transcribed By: [facility] 11/24/24 1630 Dictated By: Yung Pozo Jr, DO 11/24/24 1630 Signed By: 11/24/24 1630 [facility] XR chest 2V*on 2024 XR chest 2V* [facility] [address] [place], [place] [id number] XRay Report Signed Patient: Shantel Melendez MR#: [id number] : 1960 Acct:[id number] Age/Sex: 64 / M ADM Date: 11/24/24 Loc: XDS Room: Type: [facility] Attending Dr: Griselda Hastings DO [...] D.OMaria R 2024 4:30 PM Dictation Location: [place] [address] Transcribed By: [facility] 11/24/24 1630 Dictated By: Yung Pozo Jr, DO 11/24/24 1630 Signed By: 11/24/24 1630 Normal [facility] Influenza virus B Ag [Presen ce] in Upper respiratory specimen by Rapid immunoassayon 11-19-2024 FLUBV Ag IA.rapid Ql (Nph) Influenza virus B Ag [Presence] in Upper respiratory specimen by Rapid immunoassay [facility] FLUBV Ag IA.rapid Ql (Nph) Negative [facility] No Panel Informationon 11-19 Influenza Type A (Rapid) Negative [facility] POC SARS CoV-2 Antigen Negative [facility] No Panel InformationOrdered By: Griselda Hastings on 11-19-2024 Quick Strep (POC) [facility] RSV (POC) [facility] CNOVSPon 11-07-2024 CNOVSP Visit (SP) Office ([place]) ----- SHANTEL MELENDEZ ([id number]) 1960 M Date Time Provider Department 11/07/24 9:20 AM RACQUEL COLE During your visit today, we recorded the following information about you: Temperature Pulse Respiration Blood pressure 97.5 degrees 72/minute 16/minute 115/89 Weight Height 79.3 kg 1.706 m Racquel Cole MD 11/07/2024 11:09 AM Signed NAME: Shantel Melendez CLINIC NO.: [id number] DATE OF SERVICE: November 07, 2024 ([place]is) Some elements in this clinic note that are critical to medical decision making have been carefully reviewed and included from a prior clinic note dated: November 02, 2023 (Curtis) Referring Provider: Griselda Hastings DO Additional Clinicians involved in Shantel Melendez's care: Dr Kimberly Nichole ENT, Dr. 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 10/05/2021 - MRI Brain: [facility] There is T2 and T2 flair hyperintense [...] may represent (more content not included)... Normal [facility] No Panel InformationOrdered By: Nathanael Arango on 11-05-2024 Miscellaneous Pathology Test See comment [facility] Comment on above: See report. Scanned copy available in EMR. Pathology Request for Lab Co rpon 11-05-2024 Pathology Request for Lab Nancy Normal [facility] Comment on above: Order Comment: MARITZA MEEK ECIMEN Result Comment: See report. Scanned copy available in EMR. PERFORMED BY: [place] [address] PATHOLOGIST RACE STEWARD EDUARDO HOLLINGSWORTH M.D. Performed By: #### P ATH TO [facility] #### [address] Basophils Auto (Bld) [#/Vol] on 11-03-2024 Basophils (Bld) [#/Vol] Automated basophil count <0.11 [facility] Basophils (Bld) [#/Vol] 0.06 10*3/uL <0.11 [facility] Basophils/100 WBC Auto (Bld) on 11-03-2024 Basophils/100 WBC (Bld) Automated basophil % [facility] Basophils/100 WBC (Bld) 1.0 % [facility] Blood manual differential co mment interpretation narrativeon 11-03-2024 Manual differential comment Curtis (Bld) [Interp] Blood manual differential comment interpretation narrative [facility] Manual differential comment Curtis (Bld) [Interp] Auto [facility] CBC W Auto Differential pane l (Bld)on 11-03-2024 Basophils (Bld) [#/Vol] 0.06 10*3/uL [facility] Basophils/100 WBC (Bld) 1 % [facility] Differential cell count method Nom (Bld) Auto [facility] Eosinophils (Bld) [#/Vol] 0.16 10*3/uL [facility] Eosinophils/100 WBC (Bld) 2.7 % [facility] Erythrocyte distribution width (RBC) [Ratio] 14.6 % 11.5 - 15.0 % [facility] Hematocrit (Bld) [Volume fraction] 40 % 39.0 - 51.0 % [facility] Hemoglobin (Bld) [Mass/Vol] 13.6 g/dL 13.0 - 17.0 g/dL [facility] Immature granulocytes (Bld) [#/Vol] [facility] Immature granulocytes/100 WBC (Bld) 0.2 % [facility] Lymphocytes (Bld) [#/Vol] 2.73 10*3/uL [facility] Lymphocytes/100 WBC (Bld) 45.3 % [facility] MCH (RBC) [Entitic mass] 31.9 pg 26.0 - 34.0 pg [facility] MCHC (RBC) [Mass/Vol] 34 g/dL 30.5 - 36.0 g/dL [facility] MCV (RBC) [Entitic vol] 93.9 fL 80.0 - 100.0 fL [facility] Monocytes (Bld) [#/Vol] 0.4 10*3/uL [facility] Monocytes/100 WBC (Bld) 6.6 % [facility] Neutrophils (Bld) [#/Vol] 2.67 10*3/uL [facility] Neutrophils/100 WBC (Bld) 44.2 % [facility] Nucleated RBC (Bld) [#/Vol] [facility] Nucleated RBC/100 WBC (Bld) [Ratio] 0 % /100 WBC [facility] Platelet mean volume (Bld) [Entitic vol] 11 fL 9.0 - 12.7 fL [facility] Platelets (Bld) [#/Vol] 281 10*3/uL [facility] RBC (Bld) [#/Vol] 4.26 10*6/uL 4.20 - 6.00 m/uL [facility] WBC (Bld) [#/Vol] 6.03 10*3/uL [facility] Basophils (Bld) [#/Vol] 0.06 10*3/uL Normal <0.11 [facility] Comment on above: Order Comment: Speci men Type: BLOOD SPECIMEN Ordering Facility: [facility] Address: [address] [place] [address] Performed By: #### 5 7021-8 #### [facility] CLIA [id number] [address] [place] [address] Basophils/100 WBC (Bld) 1.0 % Normal [facility] Comment on above: Order Comment: Speci men Type: BLOOD SPECIMEN Ordering Facility: [facility] Address: [address] [place] [address] Performed By: #### 5 7021-8 #### [facility] CLIA [id number] [address] [place] [address] Differential cell count method Nom (Bld) Auto Normal [facility] Comment on above: Order Comment: Speci men Type: BLOOD SPECIMEN Ordering Facility: [facility] Address: [address] [place] [address] Performed By: #### 5 7021-8 #### [facility] CLIA [id number] [address] [place] [address] Eosinophils (Bld) [#/Vol] 0.16 10*3/uL Normal <0.46 [facility] Comment on above: Order Comment: Speci men Type: BLOOD SPECIMEN Ordering Facility: [facility] Address: [address] [place] [address] Performed By: #### 5 7021-8 #### [facility] CLIA [id number] [address] [place] [address] Eosinophils/100 WBC (Bld) 2.7 % Normal [facility] Comment on above: Order Comment: Speci men Type: BLOOD SPECIMEN Ordering Facility: [facility] Address: [address] [place] [address] Performed By: #### 5 7021-8 #### [facility] CLIA [id number] [address] [place] [address] Erythrocyte distribution width (RBC) [Ratio] 14.6 % Normal 11.5-15.0 [facility] Comment on above: Order Comment: Speci men Type: BLOOD SPECIMEN Ordering Facility: [facility] Address: [address] [place] [address] Performed By: #### 5 7021-8 #### [facility] CLIA [id number] [address] [place] [address] Hematocrit (Bld) [Volume fraction] 40.0 % Normal 39.0-51.0 [facility] Comment on above: Order Comment: Speci men Type: BLOOD SPECIMEN Ordering Facility: [facility] Address: [address] [place] [address] Performed By: #### 5 7021-8 #### [facility] CLIA [id number] [address] [place] [address] Hemoglobin (Bld) [Mass/Vol] 13.6 g/dL Normal 13.0-17.0 [facility] Comment on above: Order Comment: Speci men Type: BLOOD SPECIMEN Ordering Facility: [facility] Address: [address] [place] [address] Performed By: #### 5 7021-8 #### [facility] CLIA [id number] [address] [place] [address] Immature granulocytes (Bld) [#/Vol] 10*3/uL Normal <0.10 [facility] Comment on above: Order Comment: Speci men Type: BLOOD SPECIMEN Ordering Facility: [facility] Address: [address] [place] [address] Performed By: #### 5 7021-8 #### [facility] CLIA [id number] [address] [place] [address] Immature granulocytes/100 WBC (Bld) 0.2 % Normal [facility] Comment on above: Order Comment: Speci men Type: BLOOD SPECIMEN Ordering Facility: [facility] Address: [address] [place] [address] Performed By: #### 5 7021-8 #### [facility] CLIA [id number] [address] [place] [address]270 Lymphocytes (Bld) [#/Vol] 2.73 10*3/uL Normal 1.00-4.00 [facility] Comment on above: Order Comment: Speci men Type: BLOOD SPECIMEN Ordering Facility: [facility] Address: [address] [place] [address] Performed By: #### 5 7021-8 #### [facility] CLIA [id number] [address] [place] [address] 21651 Lymphocytes/100 WBC (Bld) 45.3 % Normal [facility] Comment on above: Order Comment: Speci men Type: BLOOD SPECIMEN Ordering Facility: [facility] Address: [address] [place] [address] Performed By: #### 5 7021-8 #### [facility] CLIA [id number] [address] [place] [address] 15655 MCH (RBC) [Entitic mass] 31.9 pg Normal 26.0-34.0 [facility] Comment on above: Order Comment: Speci men Type: BLOOD SPECIMEN Ordering Facility: [facility] Address: [address] [place] [address] Performed By: #### 5 7021-8 #### [facility] CLIA [id number] [address] [place] [address]85 MCHC (RBC) [Mass/Vol] 34.0 g/dL Normal 30.5-36.0 [facility] Comment on above: Order Comment: Speci men Type: BLOOD SPECIMEN Ordering Facility: [facility] Address: [address] [place] [address] Performed By: #### 5 7021-8 #### [facility] CLIA [id number] [address] [place] [address]248 MCV (RBC) [Entitic vol] 93.9 fL Normal 80.0-100.0 [facility] Comment on above: Order Comment: Speci men Type: BLOOD SPECIMEN Ordering Facility: [facility] Address: [address] [place] [address] Performed By: #### 5 7021-8 #### [facility] CLIA [id number] [address] [place] [address]756 Monocytes (Bld) [#/Vol] 0.40 10*3/uL Normal <0.87 [facility] Comment on above: Order Comment: Speci men Type: BLOOD SPECIMEN Ordering Facility: [facility] Address: [address] [place] [address] Performed By: #### 5 7021-8 #### [facility] CLIA [id number] [address] [place] [address]44 Monocytes/100 WBC (Bld) 6.6 % Normal [facility] Comment on above: Order Comment: Speci men Type: BLOOD SPECIMEN Ordering Facility: [facility] Address: [address] [place] [address] Performed By: #### 5 7021-8 #### [facility] CLIA [id number] [address] [place] [address]259 Neutrophils (Bld) [#/Vol] 2.67 10*3/uL Normal 1.45-7.50 [facility] Comment on above: Order Comment: Speci men Type: BLOOD SPECIMEN Ordering Facility: [facility] Address: [address] [place] [address] Performed By: #### 5 7021-8 #### [facility] CLIA [id number] [address] [place] [address] 24335 Neutrophils/100 WBC (Bld) 44.2 % Normal [facility] Comment on above: Order Comment: Speci men Type: BLOOD SPECIMEN Ordering Facility: [facility] Address: [address] [place] [address] Performed By: #### 5 7021-8 #### [facility] CLIA [id number] [address] [place] [address]45 Nucleated RBC (Bld) [#/Vol] 10*3/uL Normal <0.01 [facility] Comment on above: Order Comment: Speci men Type: BLOOD SPECIMEN Ordering Facility: [facility] Address: [address] [place] [address] Performed By: #### 5 7021-8 #### [facility] CLIA [id number] [address] [place] [address]22 Nucleated RBC/100 WBC (Bld) [Ratio] 0.0 /100 WBC Normal [facility] Comment on above: Order Comment: Speci men Type: BLOOD SPECIMEN Ordering Facility: [facility] Address: [address] [place] [address] Performed By: #### 5 7021-8 #### [facility] CLIA [id number] [address] [place] [address] Platelet mean volume (Bld) [Entitic vol] 11.0 fL Normal 9.0-12.7 [facility] Comment on above: Order Comment: Speci men Type: BLOOD SPECIMEN Ordering Facility: [facility] Address: [address] [place] [address] Performed By: #### 5 7021-8 #### [facility] CLIA [id number] [address] [place] [address]646 Platelets (Bld) [#/Vol] 281 10*3/uL Normal 150-400 [facility] Comment on above: Order Comment: Speci men Type: BLOOD SPECIMEN Ordering Facility: [facility] Address: [address] [place] [address] Performed By: #### 5 7021-8 #### [facility] CLIA [id number] [address] [place] [address]3891 RBC (Bld) [#/Vol] 4.26 10*6/uL Normal 4.20-6.00 [facility] Comment on above: Order Comment: Speci men Type: BLOOD SPECIMEN Ordering Facility: [facility] Address: [address] [place], [place] [address] Performed By: #### 5 7021-8 #### [facility] CLIA [id number] [address] [place] [address]42 WBC (Bld) [#/Vol] 6.03 10*3/uL Normal 3.70-11.00 [facility] Comment on above: Order Comment: Speci men Type: BLOOD SPECIMEN Ordering Facility: [facility] Address: [address] [place], [place] [address] Performed By: #### 5 7021-8 #### [facility] CLIA [id number] [address] [place] [address] CNPNon 11-03-2024 CNPN Telephone (HEMTSA) ----- SHANTEL MELENDEZ ([id number]) 1960 M Date Time Provider Department 11/03/24 [...] [C76.0] Order(s):COMPREHENSIVE METABOLIC PANEL [SQCMP] Order #: [id number] FUTURE COMPLETE BLOOD COUNT AND DIFFERENTIAL [SQCBCDIF] Order #: [id number] FUTURE Prescriptions as of 11/03/2024 - amLODIPine [...] Status:Closed by RACQUEL COLE on 11/03/24 Normal [facility] CT CHEST W IVCONon 5 CT CHEST W IVCON * * *Final Report* * * DATE OF EXAM: Nov 03 2024 8:41AM [facility] 0539 - CT CHEST W [...] any questions regarding this interpretation, please call [phone]. If you are unable to reach us at the number above, please feel free to contact [facility] at [phone]. [id number] Normal [facility] CT Chest W contrast Tristin [...] any questions regarding this interpretation, please call [phone]. If you are unable to reach us at the number above, please feel free to contact [facility] at [phone]. DIVISION OF RADIOLOGY * * *Final Report* * * DATE OF EXAM: Nov 03 2024 8:41AM [facility] 0539 - CT CHEST W [...] No additional findings. DIVISION OF RADIOLOGY Provider, [facility] - 11/03/2024 * * *Final Report* * * DATE OF EXAM: Nov 03 2024 8:41AM [facility] 0539 - CT CHEST W [...] any questions regarding this interpretation, please call [phone]. If you are unable to reach us at the number above, please feel free to contact [facility] at [phone]. [facility] CT NECK SOFT TISSUE W IVCONo n 11-03-2024 CT NECK SOFT TISSUE W IVCON * * *Final Report* * * DATE OF EXAM: Nov 03 2024 8:41AM [facility] 0013 - CT NECK SOFT [...] evidence of abnormal lymph nodes. [email or web address] Transcribe Date/Time: Nov 03 2024 8:53A Dictated by: BENJAMIN AL MD This examination was interpreted and the report reviewed and electronically signed by: BENJAMIN AL MD on Nov 03 2024 9:01AM EST Thank you for allowing us to participate in the care of your patient. Should there be any questions regarding this interpretation, please call [phone]. If you are unable to reach us at the number above, please feel free to contact [facility] at [phone]. [id number] Normal [facility] CT Neck W contrast Tristin - IMPRESSION: Primary: Category 1. Expected post-treatment changes in the neck without evidence of recurrent disease in the primary site. Neck: Category 1. No evidence of abnormal lymph nodes. [email or web address] Transcribe Date/Time: Nov 03 2024 8:53A Dictated by: BENJAMIN AL MD This examination was interpreted and the report reviewed and electronically signed by: BENJAMIN AL MD on Nov 03 2024 9:01AM EST Thank you for allowing us to participate in the care of your patient. Should there be any questions regarding this interpretation, please call [phone]. If you are unable to reach us at the number above, please feel free to contact [facility] at [phone]. DIVISION OF RADIOLOGY * * *Final Report* * * DATE OF EXAM: Nov 03 2024 8:41AM [facility] 0013 - CT NECK SOFT [...] Other: Not applicable. DIVISION OF RADIOLOGY Provider, [facility] - 11/03/2024 * * *Final Report* * * DATE OF EXAM: Nov 03 2024 8:41AM [facility] 0013 - CT NECK SOFT [...] evidence of abnormal lymph nodes. [email or web address] Transcribe Date/Time: Nov 03 2024 8:53A Dictated by: BENJAMIN AL MD This examination was interpreted and the report reviewed and electronically signed by: BENJAMIN AL MD on Nov 03 2024 9:01AM EST Thank you for allowing us to participate in the care of your patient. Should there be any questions regarding this interpretation, please call [phone]. If you are unable to reach us at the number above, please feel free to contact [facility] at [phone]. [facility] CT Neck W contrast IVOrdered By: Ccf Provider on 11-03-2024 [facility] Eosinophils/100 WBC Auto (Bl d)on 11-03-2024 Eosinophils/100 WBC (Bld) Automated eosinophil % [facility] Eosinophils/100 WBC (Bld) 2.7 % [facility] Erythrocyte distribution wid th Auto (RBC) [Ratio]on 11-03-2024 Erythrocyte distribution width (RBC) [Ratio] Erythrocyte distribution width [Ratio] by Automated count 11.5-15.0 [facility] Erythrocyte distribution width (RBC) [Ratio] 14.6 % 11.5-15.0 [facility] Hematocrit Auto (Bld) [Volum e fraction]on 11-03-2024 Hematocrit (Bld) [Volume fraction] Hematocrit [Volume Fraction] of Blood by Automated count 39.0-51.0 [facility] Hematocrit (Bld) [Volume fraction] 40.0 % 39.0-51.0 [facility] Hemoglobin [Mass/volume] in Bloodon 11-03-2024 Hemoglobin (Bld) [Mass/Vol] Hemoglobin [Mass/volume] in Blood 13.0-17.0 [facility] Hemoglobin (Bld) [Mass/Vol] 13.6 g/dL 13.0-17.0 [facility] - Hematology and Cell countson 11-03-2024 Eosinophils (Bld) [#/Vol] 0.16 10*3/uL <0.46 [facility] Immature granulocytes/100 WBC (Bld) 0.2 % [facility] Leukocytes [#/volume] correc mone for nucleated erythrocytes in Blood by Automated counon 11-03-2024 WBC corrected for nucl RBC Auto (Bld) [#/Vol] Leukocytes [#/volume] corrected for nucleated erythrocytes in Blood by Automated coun .70-. [facility] WBC corrected for nucl RBC Auto (Bld) [#/Vol] 6.03 k/uL 3.70-11.00 [facility] Lymphocytes Auto (Bld) [#/Vo l]on 11-03-2024 Lymphocytes (Bld) [#/Vol] Lymphocytes [#/volume] in Blood by Automated count 1.00-4.00 [facility] Lymphocytes (Bld) [#/Vol] 2.73 10*3/uL 1.00-4.00 [facility] Lymphocytes/100 WBC Auto (Bl d)on 11-03-2024 Lymphocytes/100 WBC (Bld) Lymphocytes/100 leukocytes in Blood by Automated count [facility] Lymphocytes/100 WBC (Bld) 45.3 % [facility] MCH Auto (RBC) [Entitic mass ]on 11-03-2024 MCH (RBC) [Entitic mass] MCH [Entitic mass] by Automated count 26.0-34.0 [facility] MCH (RBC) [Entitic mass] 31.9 pg 26.0-34.0 [facility] MCHC Auto (RBC) [Mass/Vol]on 11-03-2024 MCHC (RBC) [Mass/Vol] MCHC [Mass/volume] by Automated count 30.5-36.0 [facility] MCHC (RBC) [Mass/Vol] 34.0 g/dL 30.5-36.0 [facility] MCV Auto (RBC) [Entitic vol] on 11-03-2024 MCV (RBC) [Entitic vol] MCV [Entitic volume] by Automated count 80.0-100.0 [facility] MCV (RBC) [Entitic vol] 93.9 fL 80.0-100.0 [facility] Monocytes Auto (Bld) [#/Vol] on 11-03-2024 Monocytes (Bld) [#/Vol] Automated blood monocyte count <0.87 [facility] Monocytes (Bld) [#/Vol] 0.40 10*3/uL <0.87 [facility] Monocytes/100 WBC Auto (Bld) on 11-03-2024 Monocytes/100 WBC (Bld) Automated monocyte % [facility] Monocytes/100 WBC (Bld) 6.6 % [facility] Neutrophils Auto (Bld) [#/Vo l]on 11-03-2024 Neutrophils (Bld) [#/Vol] Neutrophils [#/volume] in Blood by Automated count 1.45-7.50 [facility] Neutrophils (Bld) [#/Vol] 2.67 10*3/uL 1.45-7.50 [facility] Neutrophils/100 WBC Auto (Bl d)on 11-03-2024 Neutrophils/100 WBC (Bld) Automated neutrophil % [facility] Neutrophils/100 WBC (Bld) 44.2 % [facility] No Panel Informationon 11-03 Radiology Study observation (narrative) [facility] Immature Granulocyte # (Auto) <0.03 k/uL <0.10 [facility] Nucleated RBC Auto (Bld) [#/ Vol]on 11-03-2024 Nucleated RBC (Bld) [#/Vol] Nucleated erythrocytes [#/volume] in Blood by Automated count <0.01 [facility] Nucleated RBC (Bld) [#/Vol] 10*3/uL <0.01 [facility] Nucleated erythrocytes [Pres ence] in Blood by Automated counton 11-03-2024 Nucleated RBC Auto Ql (Bld) Nucleated erythrocytes [Presence] in Blood by Automated count [facility] Nucleated RBC Auto Ql (Bld) 0.0 /100{WBC} [facility] Platelet mean volume Auto (B ld) [Entitic vol]on 11-03-2024 Platelet mean volume (Bld) [Entitic vol] Platelet mean volume [Entitic volume] in Blood by Automated count 9.0-12.7 [facility] Platelet mean volume (Bld) [Entitic vol] 11.0 fL 9.0-12.7 [facility] Platelets Auto (Bld) [#/Vol] on 11-03-2024 Platelets (Bld) [#/Vol] Platelets [#/volume] in Blood by Automated count 150-400 [facility] Platelets (Bld) [#/Vol] 281 10*3/uL 150-400 [facility] RBC Auto (Bld) [#/Vol]on RBC (Bld) [#/Vol] Erythrocytes [#/volu me] in Blood by Automated count 4.20-6.00 [facility] RBC (Bld) [#/Vol] 4.26 10*6/uL 4.20-6.00 [facility] MR TRANSFER OF OUTSIDE FILMS on 10-21-2024 MR TRANSFER OF OUTSIDE FILMS Outside images for comparison or treatment purposes, not interpreted by Radiologists. [facility] Study Interpretation of outs jeffrey studyon 10-21-2024 Outside images for comparison or treatment purposes, not interpreted by Radiologists. IMAGING X-ray reportOrdered By: Evie Eubanks on 10-10-2024 Study report [facility] [address] XRay Report Signed Patient: Shantel Melendez MR#: [id number] : 1960 Acct:[id number] Age/Sex: 63 / M ADM Date: 5 Loc: XD Room: Type: [facility] Attending Dr: Solomon Narayanan PA-C Copies [...] Eubanks M.D. 10/10/2024 3:02 PM Dictation Location: [facility]02 Transcribed By: MARISA 10/10/24 1502 Dictated By: Dorothy Eubanks MD 10/10/24 1455 Signed By: 10/10/24 150 [facility] Work Phone: XR cervical spine 2Von 10-10 XR cervical spine 2V [facility] [place] [address] [place] [address] XRay Report Signed Patient: Shantel Melendez MR#: [id number] : 1960 Acct:[id number] Age/Sex: 63 / M ADM Date: 10/10/24 Loc: XD Room: Type: [facility] Attending Dr: Solomon Narayanan PA-C Copies [...] Eubanks M.D. 10/10/2024 3:02 PM Dictation Location: [facility]--02 Transcribed By: MARISA 10/10/24 1502 Dictated By: Dorothy Eubanks MD 10/10/24 1455 Signed By: 10/10/24 1502 Normal [facility] Alanine aminotransferase [En zymatic activity/volume] in Serum or PlasmaOrdered By: Griselda Hastings on 10-07-2024 ALT [Catalytic activity/Vol] Alanine aminotransferase [Enzymatic activity/volume] in Serum or Plasma Low 7-52 [facility] Albumin [Mass/volume] in Ser um or Plasma by Bromocresol green (BCG) dye binding methoOrdered By: Griselda Hastings on 10-07-2024 Albumin BCG dye [Mass/Vol] Albumin [Mass/volume] in Serum or Plasma by Bromocresol green (BCG) dye binding metho Low 3.5-5.7 [facility] Alkaline phosphatase [Enzyma tic activity/volume] in Serum or PlasmaOrdered By: Griselda Hastings on 10-07-2024 ALP [Catalytic activity/Vol] Alkaline phosphatase [Enzymatic activity/volume] in Serum or Plasma 34-104 [facility] Aspartate aminotransferase [ Enzymatic activity/volume] in Serum or PlasmaOrdered By: Griselda Hastings on 10-07-2024 AST [Catalytic activity/Vol] Aspartate aminotransferase [Enzymatic activity/volume] in Serum or Plasma Low 13-39 [facility] Basophils Auto (Bld) [#/Vol] Ordered By: Griselda Hastings on 10-07-2024 Basophils (Bld) [#/Vol] Automated basophil count 0.0-0.2 [facility] Basophils/100 WBC Auto (Bld) Ordered By: Griselda Hastings on 10-07-2024 Basophils/100 WBC (Bld) Automated basophil % . [facility] Bilirubin.total [Mass/volume ] in Serum or PlasmaOrdered By: Griselda Hastings on 10-07-2024 Bilirubin [Mass/Vol] Bilirubin.total [Mass/volume] in Serum or Plasma 0.3-1.0 [facility] Calcium [Mass/volume] in Ser um or PlasmaOrdered By: Griselda Hastings on 10-07-2024 Calcium [Mass/Vol] Calcium [Mass/volume ] in Serum or Plasma 8.6-10.3 [facility] Carbon dioxide, total [Moles /volume] in Serum or PlasmaOrdered By: Griselda Hastings on 10-07-2024 CO2 [Moles/Vol] Carbon dioxide, tota l [Moles/volume] in Serum or Plasma 21.0-31.0 [facility] Chloride [Moles/volume] in S rica or PlasmaOrdered By: Griselda Hastings on 10-07-2024 Chloride [Moles/Vol] Chloride [Moles/vol ume] in Serum or Plasma 98-107 [facility] Cholesterol [Mass/volume] in Serum or PlasmaOrdered By: Griselda Hastings on 10-07-2024 Cholesterol [Mass/Vol] Cholesterol [Mass /volume] in Serum or Plasma High 140-200 [facility] Comment on above: Chol less than 200 m g/dl low riskChol 201-239 mg/dl borderline riskChol 240 mg/dl and greater high risk Cholesterol in HDL [Mass/vol ume] in Serum or PlasmaOrdered By: Griselda Hastings on 10-07-2024 Cholesterol in HDL [Mass/Vol] Serum or plasma high density lipoprotein (HDL) cholesterol measurement 23-92 [facility] Comment on above: HDL CHOL ATP-III CLA SSIFICATION Cardiovascular RiskHDL > or equal to 60 mg/dL LOWHDL < 40 mg/dL HIGH Cholesterol in LDL Calc [Mas s/Vol]Ordered By: Griselda Hastings on 10-07-2024 Cholesterol in LDL [Mass/Vol] Cholesterol in LDL [Mass/volume] in Serum or Plasma by calculation High 0-100 [facility] Comment on above: LDL ATP III CLASSIFI CATIONLDL less than 100 mg/dL OptimalLDL 100-129 mg/dL Near or above optimalLDL 130-159 mg/dL Borderline highLDL 160-189 mg/dL HighLDL greater than 189 mg/dL Very high Cholesterol in VLDL Calc [Ma ss/Vol]Ordered By: Griselda Hastings on 10-07-2024 Cholesterol in VLDL [Mass/Vol] Cholesterol in VLDL [Mass/volume] in Serum or Plasma by calculation [facility] Clostridioides difficile tox in B tcdB gene [Presence] in Stool by JER with probe deteOrdered By: Manisha Negron on 10-07-2024 C. difficile toxin B tcdB gene JER+probe Ql (Stl) Clostridioides difficile toxin B tcdB gene [Presence] in Stool by JER with probe dete Negative [facility] Comment on above: Testing performed by RT-PCR Clostridium Difficileon 09-17 Clostridium Difficile Negative Normal Negative [facility] Comment on above: Result Comment: Test ing performed by RT-PCR PERFORMED BY: [place] [address] PATHOLOGIST RACE STEWARD RAKEL LAZARO M.D. Performed By: #### C DT #### [address] Complete Blood Count Auto Di ffon 10-07-2024 Basophils (Bld) [#/Vol] 0.0 10*3/uL Normal 0.0-0.2 [facility] Comment on above: Result Comment: PERF ORMED BY: [place] [address] PATHOLOGIST RACE STEWARD RAKEL LAZARO M.D. Performed By: #### C BC, HEPATIC, BMP, LIPASE #### [address] Basophils/100 WBC (Bld) 0.8 % Normal . [facility] Comment on above: Performed By: #### C BC, HEPATIC, BMP, LIPASE #### [address] Eosinophils (Bld) [#/Vol] 0.0 10*3/uL Normal 0.0-0.45 [facility] Comment on above: Performed By: #### C BC, HEPATIC, BMP, LIPASE #### [address] Eosinophils/100 WBC (Bld) 0.8 % Normal . [facility] Comment on above: Performed By: #### C BC, HEPATIC, BMP, LIPASE #### [address] Erythrocyte distribution width (RBC) [Ratio] 13.7 % Normal 12.0-14.8 [facility] Comment on above: Performed By: #### C BC, HEPATIC, BMP, LIPASE #### [address] Hematocrit (Bld) [Volume fraction] 36.6 % Low 38.8-50.0 [facility] Comment on above: Performed By: #### C BC, HEPATIC, BMP, LIPASE #### [address] Hemoglobin (Bld) [Mass/Vol] 12.8 g/dL Low 13.0-17.0 [facility] Comment on above: Performed By: #### C BC, HEPATIC, BMP, LIPASE #### [address] Lymphocytes (Bld) [#/Vol] 1.7 10*3/uL Normal 1.00-4.8 [facility] Comment on above: Performed By: #### C BC, HEPATIC, BMP, LIPASE #### [address] Lymphocytes/100 WBC (Bld) 31.1 % Normal . [facility] Comment on above: Performed By: #### C BC, HEPATIC, BMP, LIPASE #### [address] MCH (RBC) [Entitic mass] 32.4 pg Normal 27.5-35.2 [facility] Comment on above: Performed By: #### C BC, HEPATIC, BMP, LIPASE #### [address] MCV (RBC) [Entitic vol] 92.8 fL Normal 83.5-101 [facility] Comment on above: Performed By: #### C BC, HEPATIC, BMP, LIPASE #### [address] Mean Corpuscular HGB Conc 34.9 g/dL Normal 32.5-35.6 [facility] Comment on above: Performed By: #### C BC, HEPATIC, BMP, LIPASE #### [address] Monocytes (Bld) [#/Vol] 0.3 10*3/uL Normal 0.0-0.8 [facility] Comment on above: Performed By: #### C BC, HEPATIC, BMP, LIPASE #### [address] Monocytes/100 WBC (Bld) 4.9 % Normal . [facility] Comment on above: Performed By: #### C BC, HEPATIC, BMP, LIPASE #### [address] Neutrophils (Bld) [#/Vol] 3.4 10*3/uL Normal 1.8-7.7 [facility] Comment on above: Performed By: #### C BC, HEPATIC, BMP, LIPASE #### [address] Neutrophils/100 WBC (Bld) 62.4 % Normal . [facility] Comment on above: Performed By: #### C BC, HEPATIC, BMP, LIPASE #### [address] NRBC% 0.0 /100{WBC} Normal 0-0.5 [facility] Comment on above: Performed By: #### C BC, HEPATIC, BMP, LIPASE #### [address] Platelet mean volume (Bld) [Entitic vol] 8.8 fL Normal 6.6-10.1 [facility] Comment on above: Performed By: #### C BC, HEPATIC, BMP, LIPASE #### [place] [address] [place] Platelets (Bld) [#/Vol] 343 10*3/uL Normal 150-450 [facility] Comment on above: Performed By: #### C BC, HEPATIC, BMP, LIPASE #### [place] [address] [place] RBC (Bld) [#/Vol] 3.94 10*6/uL Normal 3.90-5.[address] [facility] Comment on above: Performed By: #### C BC, HEPATIC, BMP, LIPASE #### [address] WBC (Bld) [#/Vol] 5.5 10*3/uL Normal 4.1-10.5 [facility] Comment on above: Performed By: #### C BC, HEPATIC, BMP, LIPASE #### [address] Comprehensive Metabolic Pane chanel 10-07-2024 Albumin [Mass/Vol] 3.4 g/dL Low 3.5-5.7 [facility] Comment on above: Performed By: #### C BC, HEPATIC, BMP, LIPASE #### [address] Albumin/Globulin [Mass ratio] 1.8 {ratio} Normal [facility] Comment on above: Performed By: #### C BC, HEPATIC, BMP, LIPASE #### [address] ALP [Catalytic activity/Vol] 62 U/L Normal 34-104 [facility] Comment on above: Performed By: #### C BC, HEPATIC, BMP, LIPASE #### [address] ALT [Catalytic activity/Vol] 6 U/L Low 7-52 [facility] Comment on above: Performed By: #### C BC, HEPATIC, BMP, LIPASE #### [address] Anion gap [Moles/Vol] 9.7 mmol/L Normal 6.0-15.0 [facility] Comment on above: Performed By: #### C BC, HEPATIC, BMP, LIPASE #### [address] AST [Catalytic activity/Vol] 8 U/L Low 13-39 [facility] Comment on above: Performed By: #### C BC, HEPATIC, BMP, LIPASE #### [address] Bilirubin [Mass/Vol] 0.6 mg/dL Normal 0.3-1.0 [facility] Comment on above: Performed By: #### C BC, HEPATIC, BMP, LIPASE #### [facility] [address] Calcium [Mass/Vol] 9.3 mg/dL Normal 8.6-10.3 [facility] Comment on above: Performed By: #### C BC, HEPATIC, BMP, LIPASE #### [facility] [address] Chloride [Moles/Vol] 103 mmol/L Normal 98-107 [facility] Comment on above: Performed By: #### C BC, HEPATIC, BMP, LIPASE #### [address] CO2 [Moles/Vol] 29.1 mmol/L Normal 21.0-31.0 [facility] Comment on above: Performed By: #### C BC, HEPATIC, BMP, LIPASE #### [address] Creatinine [Mass/Vol] 0.74 mg/dL Normal 0.70-1.30 [facility] Comment on above: Performed By: #### C BC, HEPATIC, BMP, LIPASE #### [address] GFR/1.73 sq M.predicted MDRD (S/P/Bld) [Vol rate/Area] mL/min/{1.73_m2} Normal [facility] Comment on above: Performed By: #### C BC, HEPATIC, BMP, LIPASE #### [address] Globulin (S) [Mass/Vol] 1.9 g/dL Normal [facility] Comment on above: Performed By: #### C BC, HEPATIC, BMP, LIPASE #### [address] Glucose [Mass/Vol] 84 mg/dL Normal 70-100 [facility] Comment on above: Result Comment: [place] Glucose Reference Range is dependent on time and content of last meal. Glucose of more than 200 mg/dL in a nonstressed, ambulatory subject supports the diagnosis of Diabetes Mellitus. ADA recommended reference range Performed By: #### C BC, HEPATIC, BMP, LIPASE #### [facility] [address] Potassium [Moles/Vol] 4.8 mmol/L Normal 3.5-5.1 [facility] Comment on above: Performed By: #### C BC, HEPATIC, BMP, LIPASE #### [facility] [address] Protein [Mass/Vol] 5.3 g/dL Low 6.4-8.9 [facility] Comment on above: Performed By: #### C BC, HEPATIC, BMP, LIPASE #### [facility] [address] Sodium [Moles/Vol] 137 mmol/L Normal 136-145 [facility] Comment on above: Performed By: #### C BC, HEPATIC, BMP, LIPASE #### [facility] [address] Urea nitrogen [Mass/Vol] 7 mg/dL Normal 7-25 [facility] Comment on above: Performed By: #### C BC, HEPATIC, BMP, LIPASE #### [facility] [address] Creatinine [Mass/volume] in Serum or PlasmaOrdered By: Griselda Hastings on 10-07-2024 Creatinine [Mass/Vol] Creatinine [Mass/v olume] in Serum or Plasma 0.70-1.30 [facility] Eosinophils Auto (Bld) [#/Vo l]Ordered By: Griselda Hastings on 10-07-2024 Eosinophils (Bld) [#/Vol] Automated eosinophil count 0.0-0.45 [facility] Eosinophils/100 WBC Auto (Bl d)Ordered By: Griselda Hastings on 10-07-2024 Eosinophils/100 WBC (Bld) Automated eosinophil % . [facility] Erythrocyte distribution wid th Auto (RBC) [Ratio]Ordered By: Griselda Hastings on 10-07-2024 Erythrocyte distribution width (RBC) [Ratio] Erythrocyte distribution width [Ratio] by Automated count 12.0-14.8 [facility] Globulin Calc (S) [Mass/Vol] Ordered By: Griselda Hastings on 10-07-2024 Globulin (S) [Mass/Vol] Serum globulin measurement by calculation (mass/volume) [facility] Glucose [Mass/volume] in Ser um or PlasmaOrdered By: Griselda Hastings on 10-07-2024 Glucose [Mass/Vol] Glucose [Mass/volume ] in Serum or Plasma 70-100 [facility] Comment on above: ADA recommended refe rence rangeRandom Glucose Reference Range is dependent on time and content of last meal. Glucose of more than 200 mg/dL in a nonstressed, ambulatory subject supports the diagnosis of Diabetes Mellitus. Hematocrit Auto (Bld) [Volum e fraction]Ordered By: Griselda Hastings on 10-07-2024 Hematocrit (Bld) [Volume fraction] Hematocrit [Volume Fraction] of Blood by Automated count Low 38.8-50.0 [facility] Hemoglobin [Mass/volume] in BloodOrdered By: Griselda Hastings on 10-07-2024 Hemoglobin (Bld) [Mass/Vol] Hemoglobin [Mass/volume] in Blood Low 13.0-17.0 [facility] Leukocytes [#/volume] correc mone for nucleated erythrocytes in Blood by Automated counOrdered By: Griselda Hastings on 10-07-2024 WBC corrected for nucl RBC Auto (Bld) [#/Vol] Leukocytes [#/volume] corrected for nucleated erythrocytes in Blood by Automated coun 4.1-10.5 [facility] Lipid Panelon 10-07-2024 Cholesterol [Mass/Vol] 204 mg/dL High 140-200 [facility] Comment on above: Result Comment: Chol less than 200 mg/dl low risk Chol 201-239 mg/dl borderline risk Chol 240 mg/dl and greater high risk Performed By: #### C BC, HEPATIC, BMP, LIPASE #### [facility] [address] Cholesterol in HDL [Mass/Vol] 35 mg/dL Normal 23-92 [facility] Comment on above: Result Comment: HDL CHOL ATP-III CLASSIFICATION Cardiovascular Risk HDL > or equal to 60 mg/dL LOW HDL < 40 mg/dL HIGH Performed By: #### C BC, HEPATIC, BMP, LIPASE #### [address] Cholesterol.total/Chol esterol in HDL [Mass ratio] 5.8 {ratio} Normal <5.0 [facility] Comment on above: Performed By: #### C BC, HEPATIC, BMP, LIPASE #### [address] LDL Cholesterol,Calculated 145 mg/dL High 0-100 [facility] Comment on above: Result Comment: LDL ATP III CLASSIFICATION LDL less than 100 mg/dL Optimal LDL 100-129 mg/dL Near or above optimal LDL 130-159 mg/dL Borderline high LDL 160-189 mg/dL High LDL greater than 189 mg/dL Very high Performed By: #### C BC, HEPATIC, BMP, LIPASE #### [address] Triglyceride w/Reflex 118 mg/dL Normal 0-149 [facility] Comment on above: Result Comment: TRIG ATP III CLASSIFICATION TRIG less than 150 mg/dL Normal TRIG 150-199 mg/dL Borderline high TRIG 200-500 mg/dL High TRIG greater than 500 mg/dL Very high Standard traceable to the Center for Disease Conrtrol and Prevention (CDC) test method. Performed By: #### C BC, HEPATIC, BMP, LIPASE #### [address] VLDL CHOLESTEROL 23 mg/dL Normal [facility] Comment on above: Performed By: #### C BC, HEPATIC, BMP, LIPASE #### [address] Lymphocytes Auto (Bld) [#/Vo l]Ordered By: Griselda Hastings on 10-07-2024 Lymphocytes (Bld) [#/Vol] Lymphocytes [#/volume] in Blood by Automated count 1.00-4.8 [facility] Lymphocytes/100 WBC Auto (Bl d)Ordered By: Griselda Hastings on 10-07-2024 Lymphocytes/100 WBC (Bld) Lymphocytes/100 leukocytes in Blood by Automated count . [facility] MCH Auto (RBC) [Entitic mass ]Ordered By: Griselda Hastings on 10-07-2024 MCH (RBC) [Entitic mass] MCH [Entitic mass] by Automated count 27.5-35.2 [facility] MCHC Auto (RBC) [Mass/Vol]Or dered By: Griselda Hastings on 10-07-2024 MCHC (RBC) [Mass/Vol] MCHC [Mass/volume] by Automated count 32.5-35.6 [facility] MCV Auto (RBC) [Entitic vol] Ordered By: Griselda Hastings on 10-07-2024 MCV (RBC) [Entitic vol] MCV [Entitic volume] by Automated count 83.5-101 [facility] Monocytes Auto (Bld) [#/Vol] Ordered By: Griselda Hastings on 10-07-2024 Monocytes (Bld) [#/Vol] Automated blood monocyte count 0.0-0.8 [facility] Monocytes/100 WBC Auto (Bld) Ordered By: Griselda Hastings on 10-07-2024 Monocytes/100 WBC (Bld) Automated monocyte % . [facility] Neutrophils Auto (Bld) [#/Vo l]Ordered By: Griselda Hastings on 10-07-2024 Neutrophils (Bld) [#/Vol] Neutrophils [#/volume] in Blood by Automated count 1.8-7.7 [facility] Neutrophils/100 WBC Auto (Bl d)Ordered By: Griselda Hastings on 10-07-2024 Neutrophils/100 WBC (Bld) Automated neutrophil % . [facility] No Panel InformationOrdered By: Griselda Hastings on 10-07-2024 Estimated GFR (CKD-EPI) > 60.0 mL/Min [facility] Creatinine Clearance (Chem N/A [facility] Nucleated erythrocytes [Pres ence] in Blood by Automated countOrdered By: Griselda Hastings on 10-07-2024 Nucleated RBC Auto Ql (Bld) Nucleated erythrocytes [Presence] in Blood by Automated count 0-0.5 [facility] PSA Screen (Yearly Only)on 0 10-07-2024 PSA Screen (Yearly Only) 0.670 ng/mL Normal 0.000-4.00 0 [facility] Comment on above: Result Comment: Dustyi al tumor marker results determined by assays using different manufacturers or methods may not be comparable. [facility] drupal programmer and method: [employer] DXI, CHEMILUMINESCENT IMMUNOASSAY. PERFORMED BY: [place] [address] PATHOLOGIST RACE STEWARD RAKEL LAZARO M.D. Performed By: #### C BC, HEPATIC, BMP, LIPASE #### [address] Platelet mean volume Auto (B ld) [Entitic vol]Ordered By: Griselda Hastings on 10-07-2024 Platelet mean volume (Bld) [Entitic vol] Platelet mean volume [Entitic volume] in Blood by Automated count 6.6-10.1 [facility] Platelets Auto (Bld) [#/Vol] Ordered By: Griselda Hastings on 10-07-2024 Platelets (Bld) [#/Vol] Platelets [#/volume] in Blood by Automated count 150-450 [facility] Potassium [Moles/volume] in Serum or PlasmaOrdered By: Griselda Hastings on 10-07-2024 Potassium [Moles/Vol] Potassium [Moles/v olume] in Serum or Plasma 3.5-5.1 [facility] Prostate specific Ag [Mass/v olume] in Serum or PlasmaOrdered By: Griselda Hastings on 10-07-2024 Prostate specific Ag [Mass/Vol] Prostate specific Ag [Mass/volume] in Serum or Plasma 0.000-4.00 0 [facility] Comment on above: Serial tumor marker results determined by assays using different manufacturers or methods may not be comparable.[facility] drupal programmer and method:Wikia DXI, CHEMILUMINESCENT IMMUNOASSAY. Protein [Mass/volume] in Ser um or PlasmaOrdered By: Griselda Hastings on 10-07-2024 Protein [Mass/Vol] Protein [Mass/volume ] in Serum or Plasma Low 6.4-8.9 [facility] RBC Auto (Bld) [#/Vol]Ordere d By: Griselda Hastings on 10-07-2024 RBC (Bld) [#/Vol] Erythrocytes [#/volu me] in Blood by Automated count 3.90-5.60 [facility] Serum or plasma albumin/glob ulin mass ratioOrdered By: Griselda Hastings on 10-07-2024 Albumin/Globulin [Mass ratio] Serum or plasma albumin/globulin mass ratio [facility] Serum or plasma anion gap de terminationOrdered By: Griselda Hastings on 10-07-2024 Anion gap [Moles/Vol] Serum or plasma an ion gap determination 6.0-15.0 [facility] Serum or plasma total choles terol/high density lipoprotein (HDL) cholesterol mass ratOrdered By: Griselda Hastings on 10-07-2024 Cholesterol.total/Chol esterol in HDL [Mass ratio] Serum or plasma total cholesterol/high density lipoprotein (HDL) cholesterol mass rat <5.0 [facility] Sodium [Moles/volume] in Ser um or PlasmaOrdered By: Griselda Hastings on 10-07-2024 Sodium [Moles/Vol] Sodium [Moles/volume ] in Serum or Plasma 136-145 [facility] Thyroid Stimulating Hormoneo n 10-07-2024 TSH Qn 1.03 m[IU]/L Normal 0.45-5.33 [facility] Comment on above: Result Comment: PERF ORMED BY: [place] [address] PATHOLOGIST RACE STEWARD RAKEL LAZARO M.D. Performed By: #### C BC, HEPATIC, BMP, LIPASE #### [address] Thyrotropin [Units/volume] i n Serum or PlasmaOrdered By: Griselda Hastings on 10-07-2024 TSH Qn Thyrotropin [Units/volume] in Serum or Plasma 0.45-5.33 [facility] Triglyceride [Mass/volume] i n Serum or PlasmaOrdered By: Griselda Hastings on 10-07-2024 Triglyceride [Mass/Vol] Triglyceride [Mass/volume] in Serum or Plasma 0-149 [facility] Comment on above: TRIG ATP III CLASSIF ICATIONTRIG less than 150 mg/dL NormalTRIG 150-199 mg/dL Borderline highTRIG 200-500 mg/dL High TRIG greater than 500 mg/dL Very highStandard traceable to the Center for Disease Conrtrol and Prevention (CDC) test method. Urea nitrogen [Mass/volume] in Serum or PlasmaOrdered By: Griselda Hastings on 10-07-2024 Urea nitrogen [Mass/Vol] Urea nitrogen [Mass/volume] in Serum or Plasma 01-09 [facility] WBC Auto (Bld) [#/Vol]Ordere d By: Griselda Hastings on 10-07-2024 WBC (Bld) [#/Vol] Leukocytes [#/volume ] in Blood by Automated count 4.1-10.5 [facility] Alanine aminotransferase [En zymatic activity/volume] in Serum or PlasmaOrdered By: PROVIDER TEMP on 10-06-2024 ALT [Catalytic activity/Vol] Alanine aminotransferase [Enzymatic activity/volume] in Serum or Plasma [facility] Albumin [Mass/volume] in Ser um or Plasma by Bromocresol green (BCG) dye binding methoOrdered By: PROVIDER TEMP on 10-06-2024 Albumin BCG dye [Mass/Vol] Albumin [Mass/volume] in Serum or Plasma by Bromocresol green (BCG) dye binding metho 3.5-5.7 [facility] Alkaline phosphatase [Enzyma tic activity/volume] in Serum or PlasmaOrdered By: PROVIDER TEMP on 10-06-2024 ALP [Catalytic activity/Vol] Alkaline phosphatase [Enzymatic activity/volume] in Serum or Plasma 34-104 [facility] Appearance of UrineOrdered B y: Manisha Negron on 10-06-2024 Appearance (U) Urine appearance [facility] Aspartate aminotransferase [ Enzymatic activity/volume] in Serum or PlasmaOrdered By: PROVIDER TEMP on 10-06-2024 AST [Catalytic activity/Vol] Aspartate aminotransferase [Enzymatic activity/volume] in Serum or Plasma Low 13-39 [facility] Bacteria [Presence] in Urine by AutomatedOrdered By: Manisha Negron on 10-06-2024 Bacteria Auto Ql (U) Bacteria [Presence] in Urine by Automated None Seen [facility] Basic Metabolic Panelon 09-17 Anion gap [Moles/Vol] 8.5 mmol/L Normal 6.0-15.0 [facility] Comment on above: Performed By: #### C BC, HEPATIC, BMP, LIPASE #### [facility] [address] [place] [address] Calcium [Mass/Vol] 9.5 mg/dL Normal 8.6-10.3 [facility] Comment on above: Performed By: #### C BC, HEPATIC, BMP, LIPASE #### [address] Chloride [Moles/Vol] 104 mmol/L Normal 98-107 [facility] Comment on above: Performed By: #### C BC, HEPATIC, BMP, LIPASE #### [address] CO2 [Moles/Vol] 28.3 mmol/L Normal 21.0-31.0 [facility] Comment on above: Performed By: #### C BC, HEPATIC, BMP, LIPASE #### [address] Creatinine [Mass/Vol] 0.82 mg/dL Normal 0.70-1.30 [facility] Comment on above: Performed By: #### C BC, HEPATIC, BMP, LIPASE #### [place] [address] [place] Creatinine Clr Calc Pharmacy 91.52 Normal [facility] Comment on above: Performed By: #### C BC, HEPATIC, BMP, LIPASE #### [place] [address] [place] GFR/1.73 sq M.predicted MDRD (S/P/Bld) [Vol rate/Area] mL/min/{1.73_m2} Normal [facility] Comment on above: Performed By: #### C BC, HEPATIC, BMP, LIPASE #### [address] Glucose [Mass/Vol] 86 mg/dL Normal 70-100 [facility] Comment on above: Result Comment: [place] Glucose Reference Range is dependent on time and content of last meal. Glucose of more than 200 mg/dL in a nonstressed, ambulatory subject supports the diagnosis of Diabetes Mellitus. ADA recommended reference range Performed By: #### C BC, HEPATIC, BMP, LIPASE #### [place] [address] [place] Potassium [Moles/Vol] 4.8 mmol/L Normal 3.5-5.1 [facility] Comment on above: Performed By: #### C BC, HEPATIC, BMP, LIPASE #### [facility] [address] Sodium [Moles/Vol] 136 mmol/L Normal 136-145 [facility] Comment on above: Performed By: #### C BC, HEPATIC, BMP, LIPASE #### [facility] [address] Urea nitrogen [Mass/Vol] 9 mg/dL Normal 7-25 [facility] Comment on above: Performed By: #### C BC, HEPATIC, BMP, LIPASE #### [facility] [address] Basophils Auto (Bld) [#/Vol] Ordered By: PROVIDER TEMP on 10-06-2024 Basophils (Bld) [#/Vol] Automated basophil count 0.0-0.2 [facility] Basophils/100 WBC Auto (Bld) Ordered By: PROVIDER TEMP on 10-06-2024 Basophils/100 WBC (Bld) Automated basophil % . [facility] Bilirubin Test strip Ql (U)O rdered By: Manisha Negron on 10-06-2024 Bilirubin Ql (U) Bilirubin.total [Presence] in Urine by Test strip Negative [facility] Bilirubin.direct [Mass/volum e] in Serum or PlasmaOrdered By: PROVIDER TEMP on 10-06-2024 Bilirubin.direct [Mass/Vol] Bilirubin.direct [Mass/volume] in Serum or Plasma 0.03-0.18 [facility] Bilirubin.total [Mass/volume ] in Serum or PlasmaOrdered By: PROVIDER TEMP on 10-06-2024 Bilirubin [Mass/Vol] Bilirubin.total [Mass/volume] in Serum or Plasma 0.3-1.[address] [facility] [address] abdomen pelvis w conon CT abdomen pelvis w con [facility] [address] CT Scan Report Signed Patient: Shantel Melendez MR#: [id number] : 1960 Acct:[id number] Age/Sex: 63 / M ADM Date: 10/06/24 Loc: ER Room: Type: [facility] ER Attending Dr: Copies to: Manisha [...] Dorothy Eubanks M.D.10/06/2024 4:08 PM Dictation Location: [place] [address] Transcribed By: [facility] 10/06/24 1608 Dictated By: Dorothy Eubansk MD 10/06/24 1556 Signed By: 10/06/24 1608 Normal [facility] CT soft tissue neck w conon 10-06-2024 CT soft tissue neck w con [facility] [place] [address] [place] [address] CT Scan Report Signed Patient: Shantel Melendez MR#: [id number] : 1960 Acct:[id number] Age/Sex: 63 / M ADM Date: 10/06/24 Loc: ER Room: Type: [facility] ER Attending Dr: Copies to: Manisha [...] Dorothy Eubanks M.D.10/06/2024 3:56 PM Dictation Location: [place] [address] Transcribed By: [facility] 10/06/24 1556 Dictated By: Dorothy Eubanks MD 10/06/241550 Signed By: 10/06/24 155 Normal [facility] Calcium [Mass/volume] in Ser um or PlasmaOrdered By: PROVIDER TEMP on 10-06-2024 Calcium [Mass/Vol] Calcium [Mass/volume ] in Serum or Plasma 8.6-10.3 [facility] Carbon dioxide, total [Moles /volume] in Serum or PlasmaOrdered By: PROVIDER TEMP on 10-06-2024 CO2 [Moles/Vol] Carbon dioxide, tota l [Moles/volume] in Serum or Plasma 21.0-31.0 [facility] Chloride [Moles/volume] in S r[place] or PlasmaOrdered By: PROVIDER TEMP on 10-06-2024 Chloride [Moles/Vol] Chloride [Moles/vol ume] in Serum or Plasma 98-107 [facility] Color Auto (U)Ordered By: Braeden Negron on 10-06-2024 Color (U) Color of Urine by Auto Yellow Fi [facility] Complete Blood Count Auto Di ffon 10-06-2024 Basophils (Bld) [#/Vol] 0.1 10*3/uL Normal 0.0-0.2 [facility] Comment on above: Result Comment: PERF ORMED BY: [place] [address] PATHOLOGIST RACE STEWARD RAKEL LAZARO M.D. Performed By: #### C BC, HEPATIC, BMP, LIPASE #### [address] Basophils/100 WBC (Bld) 1.1 % Normal . [facility] Comment on above: Performed By: #### C BC, HEPATIC, BMP, LIPASE #### [facility] [address] Eosinophils (Bld) [#/Vol] 0.1 10*3/uL Normal 0.0-0.45 [facility] Comment on above: Performed By: #### C BC, HEPATIC, BMP, LIPASE #### [address] Eosinophils/100 WBC (Bld) 0.9 % Normal . [facility] Comment on above: Performed By: #### C BC, HEPATIC, BMP, LIPASE #### [address] Erythrocyte distribution width (RBC) [Ratio] 13.7 % Normal 12.0-14.8 [facility] Comment on above: Performed By: #### C BC, HEPATIC, BMP, LIPASE #### [address] Hematocrit (Bld) [Volume fraction] 37.0 % Low 38.8-50.0 [facility] Comment on above: Performed By: #### C BC, HEPATIC, BMP, LIPASE #### [address] Hemoglobin (Bld) [Mass/Vol] 12.8 g/dL Low 13.0-17.0 [facility] Comment on above: Performed By: #### C BC, HEPATIC, BMP, LIPASE #### [address] Lymphocytes (Bld) [#/Vol] 2.0 10*3/uL Normal 1.00-4.8 [facility] Comment on above: Performed By: #### C BC, HEPATIC, BMP, LIPASE #### [address] Lymphocytes/100 WBC (Bld) 28.2 % Normal . [facility] Comment on above: Performed By: #### C BC, HEPATIC, BMP, LIPASE #### [address] MCH (RBC) [Entitic mass] 32.0 pg Normal 27.5-35.2 [facility] Comment on above: Performed By: #### C BC, HEPATIC, BMP, LIPASE #### [address] MCV (RBC) [Entitic vol] 92.6 fL Normal 83.5-101 [facility] Comment on above: Performed By: #### C BC, HEPATIC, BMP, LIPASE #### [address] Mean Corpuscular HGB Conc 34.6 g/dL Normal 32.5-35.6 [facility] Comment on above: Performed By: #### C BC, HEPATIC, BMP, LIPASE #### [address] Monocytes (Bld) [#/Vol] 0.4 10*3/uL Normal 0.0-0.8 [facility] Comment on above: Performed By: #### C BC, HEPATIC, BMP, LIPASE #### [address] Monocytes/100 WBC (Bld) 17.04 % Normal 0.00-20.00 [facility] Comment on above: Performed By: #### C BC, HEPATIC, BMP, LIPASE #### [address] Monocytes/100 WBC (Bld) 5.4 % Normal . [facility] Comment on above: Performed By: #### C BC, HEPATIC, BMP, LIPASE #### [address] Neutrophils (Bld) [#/Vol] 4.7 10*3/uL Normal 1.8-7.7 [facility] Comment on above: Performed By: #### C BC, HEPATIC, BMP, LIPASE #### [address] Neutrophils/100 WBC (Bld) 64.4 % Normal . [facility] Comment on above: Performed By: #### C BC, HEPATIC, BMP, LIPASE #### [address] NRBC% 0.1 /100{WBC} Normal 0-0.5 [facility] Comment on above: Performed By: #### C BC, HEPATIC, BMP, LIPASE #### [address] Platelet mean volume (Bld) [Entitic vol] 8.4 fL Normal 6.6-10.1 [facility] Comment on above: Performed By: #### C BC, HEPATIC, BMP, LIPASE #### [address] Platelets (Bld) [#/Vol] 357 10*3/uL Normal 150-450 [facility] Comment on above: Performed By: #### C BC, HEPATIC, BMP, LIPASE #### [address] RBC (Bld) [#/Vol] 3.99 10*6/uL Normal 3.90-5.[address] [facility] Comment on above: Performed By: #### C BC, HEPATIC, BMP, LIPASE #### [address] WBC (Bld) [#/Vol] 7.2 10*3/uL Normal 4.1-10.5 [facility] Comment on above: Performed By: #### C BC, HEPATIC, BMP, LIPASE #### [address] Creatinine [Mass/volume] in Serum or PlasmaOrdered By: PROVIDER TEMP on 10-06-2024 Creatinine [Mass/Vol] Creatinine [Mass/v olume] in Serum or Plasma 0.70-1.30 [facility] Dipstick and Microscopicon 0 10-06-2024 Appearance (U) Clear Normal Clear [facility] Comment on above: Order Comment: Name Collection Type:: Clean-Voided Midstream Performed By: #### C BC, HEPATIC, BMP, LIPASE #### [address] Bacteria,Urine None Seen Normal None Seen [facility] Comment on above: Order Comment: Name Collection Type:: Clean-Voided Midstream Performed By: #### C BC, HEPATIC, BMP, LIPASE #### [address] Bilirubin,Urine Negative Normal Negative [facility] Comment on above: Order Comment: Name Collection Type:: Clean-Voided Midstream Performed By: #### C BC, HEPATIC, BMP, LIPASE #### [address] Color (U) Yellow Normal Yellow [facility] Comment on above: Order Comment: Name Collection Type:: Clean-Voided Midstream Performed By: #### C BC, HEPATIC, BMP, LIPASE #### [address] Glucose Ql (U) Normal Normal Normal [facility] Comment on above: Order Comment: Name Collection Type:: Clean-Voided Midstream Performed By: #### C BC, HEPATIC, BMP, LIPASE #### [address] Hyaline Casts,Urine None Normal 0-8 [facility] Comment on above: Order Comment: Name Collection Type:: Clean-Voided Midstream Performed By: #### C BC, HEPATIC, BMP, LIPASE #### [address] Ketones Ql (U) Negative Normal Negative [facility] Comment on above: Order Comment: Name Collection Type:: Clean-Voided Midstream Performed By: #### C BC, HEPATIC, BMP, LIPASE #### [address] Leukocyte esterase Test strip Ql (U) Negative Normal Negative [facility] Comment on above: Order Comment: Name Collection Type:: Clean-Voided Midstream Performed By: #### C BC, HEPATIC, BMP, LIPASE #### [address] Mucus,Urine Rare Normal [facility] Comment on above: Order Comment: Name Collection Type:: Clean-Voided Midstream Result Comment: PERF ORMED BY: [place] [address] PATHOLOGIST RACE STEWARD RAKEL LAZARO M.D. Performed By: #### C BC, HEPATIC, BMP, LIPASE #### [place] [address] [place] Nitrite,Urine Negative Normal Negative [facility] Comment on above: Order Comment: Name Collection Type:: Clean-Voided Midstream Performed By: #### C BC, HEPATIC, BMP, LIPASE #### [address] Occult Blood,Urine Trace High Negative [facility] Comment on above: Order Comment: Name Collection Type:: Clean-Voided Midstream Result Comment: PERF ORMED BY: [place] [address] PATHOLOGIST RACE STEWARD RAKEL LAZARO M.D. Performed By: #### C BC, HEPATIC, BMP, LIPASE #### [address] pH (U) 5.5 [pH] Normal 5.0-9.0 [facility] Comment on above: Order Comment: Name Collection Type:: Clean-Voided Midstream Performed By: #### C BC, HEPATIC, BMP, LIPASE #### [address] Protein,Urine Negative Normal Negative [facility] Comment on above: Order Comment: Name Collection Type:: Clean-Voided Midstream Performed By: #### C BC, HEPATIC, BMP, LIPASE #### [address] RBC,Urine 1-2 Normal 0-4 [facility] Comment on above: Order Comment: Name Collection Type:: Clean-Voided Midstream Performed By: #### C BC, HEPATIC, BMP, LIPASE #### [address] Specificy [place],Urine >1.050 High 1.001-1.03 0 [facility] Comment on above: Order Comment: Name Collection Type:: Clean-Voided Midstream Performed By: #### C BC, HEPATIC, BMP, LIPASE #### [facility] [address] Squamous Epithelial Cell,Urine 1-2 Normal 0-2 [facility] Comment on above: Order Comment: Name Collection Type:: Clean-Voided Midstream Performed By: #### C BC, HEPATIC, BMP, LIPASE #### [facility] [address] Urobilinogen,Urine Normal Normal Normal [facility] Comment on above: Order Comment: Name Collection Type:: Clean-Voided Midstream Performed By: #### C BC, HEPATIC, BMP, LIPASE #### [facility] [address] WBC,Urine 1-2 Normal 0-4 [facility] Comment on above: Order Comment: Name Collection Type:: Clean-Voided Midstream Performed By: #### C BC, HEPATIC, BMP, LIPASE #### [address] ECG 12 lead ECGon 10-06-2024 ECG 12 lead ECG [facility] [place] [address] [place] [address] Electrocardiograph Report Signed Patient: Shantel Melendez MR#: [id number] : 1960 Acct:[id number] Age/Sex: 63 / M ADM Date: 10/06/24 Loc: ER Room: Type: [facility] ER Attending Dr: Ordering Provider: [...] now present Confirmed by Duke Kaufman DO ([id number]) on 10/06/2024 7:36:01 PM Referred By: Electronically Signed By: Duke Kaufman DO Transcribed By: MUS Signed By Duke Kaufman DO 193 Normal [facility] Eosinophils Auto (Bld) [#/Vo l]Ordered By: PROVIDER TEMP on 10-06-2024 Eosinophils (Bld) [#/Vol] Automated eosinophil count 0.0-0.45 [facility] Eosinophils/100 WBC Auto (Bl d)Ordered By: PROVIDER TEMP on 10-06-2024 Eosinophils/100 WBC (Bld) Automated eosinophil % . [facility] Epithelial cells.squamous [# /area] in Urine sediment by Automated countOrdered By: Manisha Negron on 10-06-2024 Epithelial cells.squamous Auto (Urine sed) [#/Area] Epithelial cells.squamous [#/area] in Urine sediment by Automated count 0-2 [facility] Erythrocyte distribution wid th Auto (RBC) [Ratio]Ordered By: PROVIDER TEMP on 10-06-2024 Erythrocyte distribution width (RBC) [Ratio] Erythrocyte distribution width [Ratio] by Automated count 12.0-14.8 [facility] Erythrocytes [#/area] in Uri ne sediment by Automated countOrdered By: Manisha Negron on 10-06-2024 RBC Auto (Urine sed) [#/Area] Erythrocytes [#/area] in Urine sediment by Automated count 0-4 [facility] Globulin Calc (S) [Mass/Vol] Ordered By: PROVIDER TEMP on 10-06-2024 Globulin (S) [Mass/Vol] Serum globulin measurement by calculation (mass/volume) [facility] Glucose [Mass/volume] in Ser um or PlasmaOrdered By: PROVIDER TEMP on 10-06-2024 Glucose [Mass/Vol] Glucose [Mass/volume ] in Serum or Plasma 70-100 [facility] Comment on above: ADA recommended refe [...] [Mass/volume] in Urine by Test strip Normal [facility] Hematocrit Auto (Bld) [Volum e fraction]Ordered By: PROVIDER TEMP on 10-06-2024 Hematocrit (Bld) [Volume fraction] Hematocrit [Volume Fraction] of Blood by Automated count Low 38.8-50.0 [facility] Hemoglobin Test strip Ql (U) Ordered By: Manisha Negron on 10-06-2024 Hemoglobin Ql (U) Hemoglobin [Presence ] in Urine by Test strip High Negative [facility] Hemoglobin [Mass/volume] in BloodOrdered By: PROVIDER TEMP on 10-06-2024 Hemoglobin (Bld) [Mass/Vol] Hemoglobin [Mass/volume] in Blood Low 13.0-17.0 [facility] Hepatic Panelon 10-06-2024 Albumin [Mass/Vol] 3.6 g/dL Normal 3.5-5.7 [facility] Comment on above: Performed By: #### C BC, HEPATIC, BMP, LIPASE #### [address] Albumin/Globulin [Mass ratio] 1.4 {ratio} Normal [facility] Comment on above: Performed By: #### C BC, HEPATIC, BMP, LIPASE #### [address] ALP [Catalytic activity/Vol] 63 U/L Normal 34-104 [facility] Comment on above: Performed By: #### C BC, HEPATIC, BMP, LIPASE #### [address] ALT [Catalytic activity/Vol] 7 U/L Normal 7-52 [facility] Comment on above: Performed By: #### C BC, HEPATIC, BMP, LIPASE #### [address] AST [Catalytic activity/Vol] 8 U/L Low 13-39 [facility] Comment on above: Performed By: #### C BC, HEPATIC, BMP, LIPASE #### [place] [address] [place] Bilirubin [Mass/Vol] 0.6 mg/dL Normal 0.3-1.0 [facility] Comment on above: Performed By: #### C BC, HEPATIC, BMP, LIPASE #### [facility] [address] Bilirubin,Indirect 0.5 mg/dL Normal [facility] Comment on above: Performed By: #### C BC, HEPATIC, BMP, LIPASE #### [facility] [address] Bilirubin.indirect [Mass/Vol] 0.10 mg/dL Normal 0.03-0.18 [facility] Comment on above: Performed By: #### C BC, HEPATIC, BMP, LIPASE #### [facility] [address] Globulin (S) [Mass/Vol] 2.5 g/dL Normal [facility] Comment on above: Performed By: #### C BC, HEPATIC, BMP, LIPASE #### [address] Protein [Mass/Vol] 6.1 g/dL Low 6.4-8.9 [facility] Comment on above: Performed By: #### C BC, HEPATIC, BMP, LIPASE #### [address] Hyaline casts [#/area] in Ur ine sediment by Automated countOrdered By: Manisha Negron on 10-06-2024 Hyaline casts Auto (Urine sed) [#/Area] Hyaline casts [#/area] in Urine sediment by Automated count 0-8 [facility] Ketones Test strip Ql (U)Ord ered By: Manisha Negron on 10-06-2024 Ketones Ql (U) Ketones [Presence] i n Urine by Test strip Negative [facility] Leukocyte esterase [Presence ] in Urine by Test stripOrdered By: Manisha Negron on 10-06-2024 Leukocyte esterase Test strip Ql (U) Leukocyte esterase [Presence] in Urine by Test strip Negative [facility] Leukocytes [#/area] in Urine sediment by Automated countOrdered By: Manisha Negron on 10-06-2024 WBC Auto (Urine sed) [#/Area] Leukocytes [#/area] in Urine sediment by Automated count 0-4 [facility] Leukocytes [#/volume] correc mone for nucleated erythrocytes in Blood by Automated counOrdered By: PROVIDER TEMP on 10-06-2024 WBC corrected for nucl RBC Auto (Bld) [#/Vol] Leukocytes [#/volume] corrected for nucleated erythrocytes in Blood by Automated coun 4.1-10.5 [facility] Lipaseon 10-06-2024 Lipase [Catalytic activity/Vol] 11.0 U/L Normal 11.0-82.0 [facility] Comment on above: Result Comment: PERF ORMED BY: [place] [address] PATHOLOGIST RACE STEWARD RAKEL LAZARO M.D. Performed By: #### C BC, HEPATIC, BMP, LIPASE #### [address] Lipase [Enzymatic activity/v olume] in Serum or PlasmaOrdered By: PROVIDER TEMP on 10-06-2024 Lipase [Catalytic activity/Vol] Lipase [Enzymatic activity/volume] in Serum or Plasma 11.0-82.0 [facility] Lymphocytes Auto (Bld) [#/Vo l]Ordered By: PROVIDER TEMP on 10-06-2024 Lymphocytes (Bld) [#/Vol] Lymphocytes [#/volume] in Blood by Automated count 1.00-4.8 [facility] Lymphocytes/100 WBC Auto (Bl d)Ordered By: PROVIDER TEMP on 10-06-2024 Lymphocytes/100 WBC (Bld) Lymphocytes/100 leukocytes in Blood by Automated count . [facility] MCH Auto (RBC) [Entitic mass ]Ordered By: PROVIDER TEMP on 10-06-2024 MCH (RBC) [Entitic mass] MCH [Entitic mass] by Automated count 27.5-35.2 [facility] MCHC Auto (RBC) [Mass/Vol]Or dered By: PROVIDER TEMP on 10-06-2024 MCHC (RBC) [Mass/Vol] MCHC [Mass/volume] by Automated count 32.5-35.6 [facility] MCV Auto (RBC) [Entitic vol] Ordered By: PROVIDER TEMP on 10-06-2024 MCV (RBC) [Entitic vol] MCV [Entitic volume] by Automated count 83.5-101 [facility] Monocyte distribution width [Entitic volume] in Blood by AutomatedOrdered By: PROVIDER TEMP on 10-06-2024 Monocyte distribution width Auto (Bld) [Entitic vol] Monocyte distribution width [Entitic volume] in Blood by Automated 0.00-20.00 [facility] Monocytes Auto (Bld) [#/Vol] Ordered By: PROVIDER TEMP on 10-06-2024 Monocytes (Bld) [#/Vol] Automated blood monocyte count 0.0-0.8 [facility] Monocytes/100 WBC Auto (Bld) Ordered By: PROVIDER TEMP on 10-06-2024 Monocytes/100 WBC (Bld) Automated monocyte % . [facility] Mucus [Presence] in Urine by AutomatedOrdered By: Manisha Negron on 10-06-2024 Mucus Auto Ql (U) Mucus [Presence] in Urine by Automated [facility] Neutrophils Auto (Bld) [#/Vo l]Ordered By: PROVIDER TEMP on 10-06-2024 Neutrophils (Bld) [#/Vol] Neutrophils [#/volume] in Blood by Automated count 1.8-7.7 [facility] Neutrophils/100 WBC Auto (Bl d)Ordered By: PROVIDER TEMP on 10-06-2024 Neutrophils/100 WBC (Bld) Automated neutrophil % . [facility] Nitrite Test strip Ql (U)Ord ered By: Manisha Negron on 10-06-2024 Nitrite Ql (U) Nitrite [Presence] i n Urine by Test strip Negative [facility] No Panel InformationOrdered By: PROVIDER TEMP on 10-06-2024 Estimated GFR (CKD-EPI) > 60.0 mL/Min [facility] Creatinine Clearance (Chem 91.52 [facility] Nucleated erythrocytes [Pres ence] in Blood by Automated countOrdered By: PROVIDER TEMP on 10-06-2024 Nucleated RBC Auto Ql (Bld) Nucleated erythrocytes [Presence] in Blood by Automated count 0-0.5 [facility] Platelet mean volume Auto (B ld) [Entitic vol]Ordered By: PROVIDER TEMP on 10-06-2024 Platelet mean volume (Bld) [Entitic vol] Platelet mean volume [Entitic volume] in Blood by Automated count 6.6-10.1 [facility] Platelets Auto (Bld) [#/Vol] Ordered By: PROVIDER TEMP on 10-06-2024 Platelets (Bld) [#/Vol] Platelets [#/volume] in Blood by Automated count 150-450 [facility] Potassium [Moles/volume] in Serum or PlasmaOrdered By: PROVIDER TEMP on 10-06-2024 Potassium [Moles/Vol] Potassium [Moles/v olume] in Serum or Plasma 3.5-5.1 [facility] Protein Test strip (U) [Mass /Vol]Ordered By: Manisha Negron on 10-06-2024 Protein (U) [Mass/Vol] Protein [Mass/vol ume] in Urine by Test strip Negative [facility] Protein [Mass/volume] in Ser um or PlasmaOrdered By: PROVIDER TEMP on 10-06-2024 Protein [Mass/Vol] Protein [Mass/volume ] in Serum or Plasma Low 6.4-8.9 [facility] RBC Auto (Bld) [#/Vol]Ordere d By: PROVIDER TEMP on 10-06-2024 RBC (Bld) [#/Vol] Erythrocytes [#/volu me] in Blood by Automated count 3.90-5.60 [facility] Serum or plasma albumin/glob ulin mass ratioOrdered By: PROVIDER TEMP on 10-06-2024 Albumin/Globulin [Mass ratio] Serum or plasma albumin/globulin mass ratio [facility] Serum or plasma anion gap de terminationOrdered By: PROVIDER TEMP on 10-06-2024 Anion gap [Moles/Vol] Serum or plasma an ion gap determination 6.0-15.0 [facility] Serum or plasma non-glucuron idated bilirubin measurement (mass/volume)Ordered By: PROVIDER TEMP on 10-06-2024 Bilirubin.indirect [Mass/Vol] Serum or plasma non-glucuronidated bilirubin measurement (mass/volume) [facility] Sodium [Moles/volume] in Ser um or PlasmaOrdered By: PROVIDER TEMP on 10-06-2024 Sodium [Moles/Vol] Sodium [Moles/volume ] in Serum or Plasma 136-145 [facility] Specific gravity Test strip (U) [Rel density]Ordered By: Manisha Negron on 10-06-2024 Specific gravity (U) [Rel density] Specific gravity of Urine by Test strip High 1.001-1.03 0 [facility] Urea nitrogen [Mass/volume] in Serum or PlasmaOrdered By: PROVIDER TEMP on 10-06-2024 Urea nitrogen [Mass/Vol] Urea nitrogen [Mass/volume] in Serum or Plasma 7-25 [facility] Urobilinogen Test strip (U) [Mass/Vol]Ordered By: Manisha Negron on 10-06-2024 Urobilinogen (U) [Mass/Vol] Urobilinogen [Mass/volume] in Urine by Test strip Normal [facility] WBC Auto (Bld) [#/Vol]Ordere d By: PROVIDER TEMP on 10-06-2024 WBC (Bld) [#/Vol] Leukocytes [#/volume ] in Blood by Automated count 4.1-10.5 [facility] pH Test strip (U)Ordered By: Manisha Negron on 10-06-2024 pH (U) pH of Urine by Test strip 5.0-9.0 [facility] B-Type Natriuretic Peptideon 09-20-2024 Natriuretic peptide B (Bld) [Mass/Vol] 43.0 pg/mL Normal 5-100 [facility] Comment on above: Result Comment: PERF ORMED BY: [place] [address] PATHOLOGIST RACE STEWARD RAKEL LAZARO M.D. Performed By: #### H S TROP #### [address] Basic Metabolic Panelon Anion gap [Moles/Vol] 11.2 mmol/L Normal 6.0-15.0 [facility] Comment on above: Performed By: #### C BC, BMP, HS TROP, BNP #### [place] [address] [place] Calcium [Mass/Vol] 9.3 mg/dL Normal 8.6-10.3 [facility] Comment on above: Performed By: #### C BC, BMP, HS TROP, BNP #### [facility] [address] [place] [address] [place] Chloride [Moles/Vol] 100 mmol/L Normal 98-107 [facility] Comment on above: Performed By: #### C BC, BMP, HS TROP, BNP #### [place] [address] [place] CO2 [Moles/Vol] 26.0 mmol/L Normal 21.0-31.0 [facility] Comment on above: Performed By: #### C BC, BMP, HS TROP, BNP #### [place] [address] [place] Creatinine [Mass/Vol] 0.91 mg/dL Normal 0.70-1.30 [facility] Comment on above: Performed By: #### C BC, BMP, HS TROP, BNP #### [place] [address] [place] Creatinine Clr Calc Pharmacy 82.47 Normal [facility] Comment on above: Result Comment: PERF ORMED BY: [place] [address] PATHOLOGIST RACE STEWARD RAKEL LAZARO M.D. Performed By: #### C BC, BMP, HS TROP, BNP #### [place] [address] [place] GFR/1.73 sq M.predicted MDRD (S/P/Bld) [Vol rate/Area] mL/min/{1.73_m2} Normal [facility] Comment on above: Performed By: #### C BC, BMP, HS TROP, BNP #### [place] [address] [place] Glucose [Mass/Vol] 100 mg/dL Normal 70-100 [facility] Comment on above: Result Comment: [place] Glucose Reference Range is dependent on time and content of last meal. Glucose of more than 200 mg/dL in a nonstressed, ambulatory subject supports the diagnosis of Diabetes Mellitus. ADA recommended reference range Performed By: #### C BC, BMP, HS TROP, BNP #### [address] Potassium [Moles/Vol] 4.2 mmol/L Normal 3.5-5.1 [facility] Comment on above: Performed By: #### C BC, BMP, HS TROP, BNP #### [address] Sodium [Moles/Vol] 133 mmol/L Low 136-145 [facility] Comment on above: Performed By: #### C BC, BMP, HS TROP, BNP #### [address] Urea nitrogen [Mass/Vol] 18 mg/dL Normal 7-25 [facility] Comment on above: Performed By: #### C BC, BMP, HS TROP, BNP #### [place] [address] [place] Basophils Auto (Bld) [#/Vol] Ordered By: Daisy Paul on 09-20-2024 Basophils (Bld) [#/Vol] Automated basophil count 0.0-0.2 [facility] Basophils/100 WBC Auto (Bld) Ordered By: Daisy Paul on 09-20-2024 Basophils/100 WBC (Bld) Automated basophil % . [facility] BioFire Not Detectedon 09-20 BioFire Not Detected Not detected Normal Not Detecte [facility] Comment on above: Result Comment: This is a duplicate RP2.1 COVID (PCR) result to be used for statistical tracking purpose only. PERFORMED BY: [place] [address] PATHOLOGIST RACE STEWARD RAKEL LAZARO M.D. Performed By: #### H S TROP #### [address] COVID-19 Detected/Not Detect edOrdered By: Daisy Paul on 09-20-2024 SARS-CoV-2 (COVID-19) RNA JER+non-probe Ql (Nph) Not detected Not Detecte [facility] Comment on above: This is a duplicate RP2.1 COVID (PCR) result to be used for statistical tracking purpose only. Calcium [Mass/volume] in Ser um or PlasmaOrdered By: Daisy Paul on 09-20-2024 Calcium [Mass/Vol] Calcium [Mass/volume ] in Serum or Plasma 8.6-10.3 [facility] Carbon dioxide, total [Moles /volume] in Serum or PlasmaOrdered By: Daisy Paul on 09-20-2024 CO2 [Moles/Vol] Carbon dioxide, tota l [Moles/volume] in Serum or Plasma 21.0-31.0 [facility] Chloride [Moles/volume] in S r[place] or PlasmaOrdered By: Daisy Paul on 09-20-2024 Chloride [Moles/Vol] Chloride [Moles/vol ume] in Serum or Plasma 98-107 [facility] Complete Blood Count Auto Di ffon 09-20-2024 Basophils (Bld) [#/Vol] 0.0 10*3/uL Normal 0.0-0.2 [facility] Comment on above: Result Comment: PERF ORMED BY: [place] [address] PATHOLOGIST RACE STEWARD RAKEL LAZARO M.D. Performed By: #### C BC, BMP, HS TROP, BNP #### [place] [address] [place] Basophils/100 WBC (Bld) 0.5 % Normal . [facility] Comment on above: Performed By: #### C BC, BMP, HS TROP, BNP #### [place] [address] [place] Eosinophils (Bld) [#/Vol] 0.0 10*3/uL Normal 0.0-0.45 [facility] Comment on above: Performed By: #### C BC, BMP, HS TROP, BNP #### [place] [address] [place] Eosinophils/100 WBC (Bld) 0.1 % Normal . [facility] Comment on above: Performed By: #### C BC, BMP, HS TROP, BNP #### [address] Erythrocyte distribution width (RBC) [Ratio] 13.9 % Normal 12.0-14.8 [facility] Comment on above: Performed By: #### C BC, BMP, HS TROP, BNP #### [address] Hematocrit (Bld) [Volume fraction] 41.1 % Normal 38.8-50.0 [facility] Comment on above: Performed By: #### C BC, BMP, HS TROP, BNP #### [address] Hemoglobin (Bld) [Mass/Vol] 14.1 g/dL Normal 13.0-17.0 [facility] Comment on above: Performed By: #### C BC, BMP, HS TROP, BNP #### [address] Lymphocytes (Bld) [#/Vol] 1.1 10*3/uL Normal 1.00-4.8 [facility] Comment on above: Performed By: #### C BC, BMP, HS TROP, BNP #### [address] Lymphocytes/100 WBC (Bld) 11.5 % Normal . [facility] Comment on above: Performed By: #### C BC, BMP, HS TROP, BNP #### [address] MCH (RBC) [Entitic mass] 32.1 pg Normal 27.5-35.2 [facility] Comment on above: Performed By: #### C BC, BMP, HS TROP, BNP #### [address] MCV (RBC) [Entitic vol] 93.6 fL Normal 83.5-101 [facility] Comment on above: Performed By: #### C BC, BMP, HS TROP, BNP #### [address] Mean Corpuscular HGB Conc 34.3 g/dL Normal 32.5-35.6 [facility] Comment on above: Performed By: #### C BC, BMP, HS TROP, BNP #### [place] [address] [place] Monocytes (Bld) [#/Vol] 0.5 10*3/uL Normal 0.0-0.8 [facility] Comment on above: Performed By: #### C BC, BMP, HS TROP, BNP #### [place] [address] [place] Monocytes/100 WBC (Bld) 23.57 % High 0.00-20.00 [facility] Comment on above: Result Comment: For adults in ED, MDW > 20.0 may be associated with a higher risk of sepsis during the first 12 hrs of hospital admission Performed By: #### C BC, BMP, HS TROP, BNP #### [place] [address] [place] Monocytes/100 WBC (Bld) 5.4 % Normal . [facility] Comment on above: Performed By: #### C BC, BMP, HS TROP, BNP #### [place] [address] [place] Neutrophils (Bld) [#/Vol] 8.1 10*3/uL High 1.8-7.7 [facility] Comment on above: Performed By: #### C BC, BMP, HS TROP, BNP #### [place] [address] [place] Neutrophils/100 WBC (Bld) 82.5 % Normal . [facility] Comment on above: Performed By: #### C BC, BMP, HS TROP, BNP #### [place] [address] [place] NRBC% 0.1 /100{WBC} Normal 0-0.5 [facility] Comment on above: Performed By: #### C BC, BMP, HS TROP, BNP #### [facility] [address] [place] [address] [place] Platelet mean volume (Bld) [Entitic vol] 8.9 fL Normal 6.6-10.1 [facility] Comment on above: Performed By: #### C BC, BMP, HS TROP, BNP #### [facility] [address] [place] [id number] [place] Platelets (Bld) [#/Vol] 215 10*3/uL Normal 150-450 [facility] Comment on above: Performed By: #### C BC, BMP, HS TROP, BNP #### [facility] [address] [place] [address] [place] RBC (Bld) [#/Vol] 4.39 10*6/uL Normal 3.90-5.[address] [facility] Comment on above: Performed By: #### C BC, BMP, HS TROP, BNP #### [facility] [address] [place] [address] [place] WBC (Bld) [#/Vol] 9.8 10*3/uL Normal 4.1-10.5 [facility] Comment on above: Performed By: #### C BC, BMP, HS TROP, BNP #### [facility] [address] Creatinine [Mass/volume] in Serum or PlasmaOrdered By: Daisy Paul on 09-20-2024 Creatinine [Mass/Vol] Creatinine [Mass/v olume] in Serum or Plasma 0.70-1.30 [facility] ECG 12 lead ECGon 09-20-2024 ECG 12 lead ECG [facility] [place] [address] [place] [address] Electrocardiograph Report Signed Patient: Shantel Melendez MR#: [id number] : 1960 Acct:[id number] Age/Sex: 63 / M ADM Date: 09/20/24 Loc: ER Room: Type: [facility] ER Attending Dr: Ordering Provider: [...] wave abnormality Confirmed by Daisy Paul MD ([id number]) on 09/20/2024 7:46:03 PM Referred By: Electronically Signed By: Daisy Paul MD Transcribed By: MUS Signed By Daisy Paul MD 11/09 Normal [facility] Eosinophils Auto (Bld) [#/Vo l]Ordered By: Daisy Paul on 09-20-2024 Eosinophils (Bld) [#/Vol] Automated eosinophil count 0.0-0.45 [facility] Eosinophils/100 WBC Auto (Bl d)Ordered By: Daisy Paul on 09-20-2024 Eosinophils/100 WBC (Bld) Automated eosinophil % . [facility] Erythrocyte distribution wid th Auto (RBC) [Ratio]Ordered By: Daisy Paul on 09-20-2024 Erythrocyte distribution width (RBC) [Ratio] Erythrocyte distribution width [Ratio] by Automated count 12.0-14.8 [facility] Glucose [Mass/volume] in Ser um or PlasmaOrdered By: Daisy Paul on 09-20-2024 Glucose [Mass/Vol] Glucose [Mass/volume ] in Serum or Plasma 70-100 [facility] Comment on above: ADA recommended refe rence rangeRandom Glucose Reference Range is dependent on time and content of last meal. Glucose of more than 200 mg/dL in a nonstressed, ambulatory subject supports the diagnosis of Diabetes Mellitus. Hematocrit Auto (Bld) [Volum e fraction]Ordered By: Daisy Paul on 09-20-2024 Hematocrit (Bld) [Volume fraction] Hematocrit [Volume Fraction] of Blood by Automated count 38.8-50.0 [facility] Hemoglobin [Mass/volume] in BloodOrdered By: Daisy Paul on 09-20-2024 Hemoglobin (Bld) [Mass/Vol] Hemoglobin [Mass/volume] in Blood 13.0-17.0 [facility] Leukocytes [#/volume] correc mone for nucleated erythrocytes in Blood by Automated counOrdered By: Daisy Paul on 09-20-2024 WBC corrected for nucl RBC Auto (Bld) [#/Vol] Leukocytes [#/volume] corrected for nucleated erythrocytes in Blood by Automated coun 4.1-10.5 [facility] Lymphocytes Auto (Bld) [#/Vo l]Ordered By: Daisy Paul on 09-20-2024 Lymphocytes (Bld) [#/Vol] Lymphocytes [#/volume] in Blood by Automated count 1.00-4.8 [facility] Lymphocytes/100 WBC Auto (Bl d)Ordered By: Daisy Paul on 09-20-2024 Lymphocytes/100 WBC (Bld) Lymphocytes/100 leukocytes in Blood by Automated count . [facility] MCH Auto (RBC) [Entitic mass ]Ordered By: Daisy Paul on 09-20-2024 MCH (RBC) [Entitic mass] MCH [Entitic mass] by Automated count 27.5-35.2 [facility] MCHC Auto (RBC) [Mass/Vol]Or dered By: Daisy Paul on 09-20-2024 MCHC (RBC) [Mass/Vol] MCHC [Mass/volume] by Automated count 32.5-35.6 [facility] MCV Auto (RBC) [Entitic vol] Ordered By: Daisy Paul on 09-20-2024 MCV (RBC) [Entitic vol] MCV [Entitic volume] by Automated count 83.5-101 [facility] Monocyte distribution width [Entitic volume] in Blood by AutomatedOrdered By: Daisy Paul on 09-20-2024 Monocyte distribution width Auto (Bld) [Entitic vol] Monocyte distribution width [Entitic volume] in Blood by Automated High 0.00-20.00 [facility] Comment on above: For adults in ED, MD W > 20.0 may be associated with a higher risk of sepsis during the first 12 hrs of hospital admission Monocytes Auto (Bld) [#/Vol] Ordered By: Daiys Paul on 09-20-2024 Monocytes (Bld) [#/Vol] Automated blood monocyte count 0.0-0.8 [facility] Monocytes/100 WBC Auto (Bld) Ordered By: Daisy Paul on 09-20-2024 Monocytes/100 WBC (Bld) Automated monocyte % . [facility] Natriuretic peptide B [Mass/ Vol]Ordered By: Daisy Paul on 09-20-2024 Natriuretic peptide B (Bld) [Mass/Vol] BNP ser/plas 5-100 [facility] Neutrophils Auto (Bld) [#/Vo l]Ordered By: Daisy Paul on 09-20-2024 Neutrophils (Bld) [#/Vol] Neutrophils [#/volume] in Blood by Automated count High 1.8-7.7 [facility] Neutrophils/100 WBC Auto (Bl d)Ordered By: Daisy Paul on 09-20-2024 Neutrophils/100 WBC (Bld) Automated neutrophil % . [facility] No Panel InformationOrdered By: Daisy Paul on 09-20-2024 Estimated GFR (CKD-EPI) > 60.0 mL/Min [facility] Creatinine Clearance (Chem 82.47 [facility] Nucleated erythrocytes [Pres ence] in Blood by Automated countOrdered By: Daisy Paul on 09-20-2024 Nucleated RBC Auto Ql (Bld) Nucleated erythrocytes [Presence] in Blood by Automated count 0-0.5 [facility] Platelet mean volume Auto (B ld) [Entitic vol]Ordered By: Daisy Paul on 09-20-2024 Platelet mean volume (Bld) [Entitic vol] Platelet mean volume [Entitic volume] in Blood by Automated count 6.6-10.1 [facility] Platelets Auto (Bld) [#/Vol] Ordered By: Daisy Paul on 09-20-2024 Platelets (Bld) [#/Vol] Platelets [#/volume] in Blood by Automated count 150-450 [facility] Potassium [Moles/volume] in Serum or PlasmaOrdered By: Daisy Paul on 09-20-2024 Potassium [Moles/Vol] Potassium [Moles/v olume] in Serum or Plasma 3.5-5.1 [facility] RBC Auto (Bld) [#/Vol]Ordere d By: Daisy Paul on 09-20-2024 RBC (Bld) [#/Vol] Erythrocytes [#/volu me] in Blood by Automated count 3.90-5.60 [facility] Respiratory (Upper) Panel, P CRon 09-20-2024 [...] A H3 Blank Space ---- PERFORMED BY: [place] [address] PATHOLOGIST RACE STEWARD RAKEL LAZARO M.D. Normal [facility] Comment on above: Performed By: #### H S TROP #### [facility] [address] Respiratory pathogens DNA an d RNA panel - Nasopharynx by JER with non-probe detectionOrdered By: Daisy Paul on 09-20-2024 Respiratory pathogens DNA and RNA panel JER+non-probe (Nph) Respiratory pathogens DNA and RNA panel - Nasopharynx by JER with non-probe detection [facility] Serum or plasma anion gap de terminationOrdered By: Daisy Paul on 09-20-2024 Anion gap [Moles/Vol] Serum or plasma an ion gap determination 6.0-15.0 [facility] Sodium [Moles/volume] in Ser um or PlasmaOrdered By: Daisy Paul on 09-20-2024 Sodium [Moles/Vol] Sodium [Moles/volume ] in Serum or Plasma Low 136-145 [facility] Troponin I High Sensitivityo n 09-20-2024 Troponin I High Sensitivity 8 Normal 0-20 [facility] Comment on above: Result Comment: The Troponin units of report have been changed to meet the Chest Pain Accreditation requirement, element EC5.M1l2. Troponin units are changed from pg/ml to ng/L. Also, the decimal is removed and results are in whole numbers. PERFORMED BY: [place] [address] PATHOLOGIST RACE STEWARD RAKEL LAZARO M.D. Performed By: #### H S TROP #### [address] Troponin I High Sensitivity 8 Normal 0-20 [facility] Comment on above: Result Comment: The Troponin units of report have been changed to meet the Chest Pain Accreditation requirement, element EC5.M1l2. Troponin units are changed from pg/ml to ng/L. Also, the decimal is removed and results are in whole numbers. PERFORMED BY: [place] [address] PATHOLOGIST RACE STEWARD RAKEL LAZARO M.D. Performed By: #### C BC, BMP, HS TROP, BNP #### [address] Troponin I.cardiac [Mass/vol ume] in Serum or Plasma by Detection limit <= 0.01 ng/Ordered By: Daisy Paul on 09-20-2024 Troponin I.cardiac DL <= 0.01 ng/mL [Mass/Vol] Troponin I.cardiac [Mass/volume] in Serum or Plasma by Detection limit <= 0.01 ng/ 0-20 [facility] Comment on above: The Troponin units [...] nitrogen [Mass/volume] in Serum or Plasma 01-09 [facility] WBC Auto (Bld) [#/Vol]Ordere d By: Daisy Paul on 09-20-2024 WBC (Bld) [#/Vol] Leukocytes [#/volume ] in Blood by Automated count 4.1-10.5 [facility] X-ray reportOrdered By: Rex Hutchins on 09-20-2024 Study report [facility] [address] [address] XRay Report Signed Patient: Shantel Melendez MR#: [id number] : 1960 Acct:[id number] Age/Sex: 63 / M ADM Date: 5 Loc: ER Room: Type: [facility] ER Attending Dr: Copies to: Daisy [...] Gee Hutchins M.D.09/20/2024 12:47 PM Dictation Location: [facility]--29 Transcribed By: MARISA 09/20/241246 Dictated By: Gee Hutchins MD 09/20/241244 Signed By: 09/20/241246 [facility] Work Phone: XR chest 2V*on 09-20-2024 XR chest 2V* [facility] [address] [address] XRay Report Signed Patient: Shantel Melendez MR#: [id number] : 1960 Acct:[id number] Age/Sex: 63 / M ADM Date: 09/20/24 Loc: ER Room: Type: [facility] Attending Dr: Copies to: Daisy Paul [...] Gee Hutchins M.D.09/20/2024 12:47 PM Dictation Location: [place] [address] Transcribed By: [facility] 09/20/24 1247 Dictated By: Gee Hutchins MD 09/20/24 1245 Signed By: 09/20/24 1247 Normal [facility] US ankle/arm indiceson 09-16 US ankle/arm indices [facility] [address] [place] [address] Ultrasound Report Signed Patient: Shantel Melendez MR#: [id number] : 1960 Acct:[id number] Age/Sex: 63 / M ADM Date: 09/11/24 Loc: [facility] Dr: Ruddy Harvey MD Ordering Provider: [...] Filipe Hess M.D.09/16/2024 2:46 PM Dictation Location: [place] [address] Tech: Agueda Helm Transcribed By: MARISA 09/16/241445 Dictated By: Filipe Hess MD 09/16/241444 Signed By: 09/16/241445 Normal [facility] X-ray reportOrdered By: Yehuda Pozo on 06-24-2024 Study report [facility] [address] XRay Report Signed Patient: Shantel Melendez MR#: [id number] : 1960 Acct:[id number] Age/Sex: 63 / M ADM Date: 5 Loc: XD Room: Type: [facility] Attending Dr: Solomon Narayanan PA-C Copies [...] Pozo Jr., D.O.06/24/2024 8:08 PM Dictation Location: [facility] Transcribed By: MARISA 06/24/242007 Dictated By: Yung Pozo Jr, DO 06/24/242005 Signed By: 06/24/242007 [facility] XR cervical spine LAT/FLX/EX Ton 06-24-2024 XR cervical spine LAT/FLX/EXT [facility] [address] [address] XRay Report Signed Patient: Shantel Melendez MR#: [id number] : 1960 Acct:[id number] Age/Sex: 63 / M ADM Date: 06/24/24 Loc: XD Room: Type: [facility] CLI Attending Dr: Solomon Narayanan PA-C [...] Pozo Jr., D.O.06/24/2024 8:08 PM Dictation Location: [place] [address] Transcribed By: [facility] 06/24/242007 Dictated By: Yung Pozo Jr, DO 06/24/242005 Signed By: 06/24/242007 Normal [facility] Basic metabolic 2000 panelon 04-10-2024 Anion gap [Moles/Vol] 14 mmol/L 10 - 2 0 mmol/L [facility] Calcium [Mass/Vol] 9 mg/dL 8.6 - 10. 6 mg/dL [facility] Chloride [Moles/Vol] 103 mmol/L 98 - 10 7 mmol/L [facility] CO2 [Moles/Vol] 26 mmol/L 21 - 32 mmol/L [facility] Creatinine [Mass/Vol] 0.86 mg/dL 0.50 - 1.30 mg/dL [facility] eGFR - PINF [facility] Comment on above: Calculations of sandra mated GFR are performed using the 2020 CKD-EPI Study Refit equation without the race variable for the IDMS-Traceable creatinine methods. https://jasn.asnjournals.org/content//ASN.07453 96103 Glucose [Mass/Vol] 159 mg/dL High 74 - 99 mg/dL [facility] Interpretation and review of laboratory results Abnormal [facility] Potassium [Moles/Vol] 4.5 mmol/L 3.5 - 5.3 mmol/L [facility] Sodium [Moles/Vol] 138 mmol/L 136 - 145 mmol/L [facility] Urea nitrogen [Mass/Vol] 14 mg/dL 6 - 23 mg/dL [facility] Anion gap [Moles/Vol] 14 mmol/L Normal 10-20 [facility] Comment on above: Performed By: #### 5 7021-8 #### TITUS SCHMOTZER L ([id number]) [facility] ([facility]) [id number] [place] [address] 28492 Calcium [Mass/Vol] 9.0 mg/dL Normal 8.6-10.6 [facility] Comment on above: Performed By: #### 5 7021-8 #### TITUS SCHMOTZER L ([id number]) [facility] ([facility]) [address] [place] [address] 75474 Chloride [Moles/Vol] 103 mmol/L Normal 98-107 [facility] Comment on above: Performed By: #### 5 7021-8 #### TITUS SCHMOTZER L ([id number]) [facility] ([facility]) [address] [place] [address] 09982 CO2 [Moles/Vol] 26 mmol/L Normal 21-32 [facility] Comment on above: Performed By: #### 5 7021-8 #### TITUS PAYANMOTZER L ([id number]) [facility] ([facility]) [address] [place] [address] 36395 Creatinine [Mass/Vol] 0.86 mg/dL Normal 0.50-1.30 [facility] Comment on above: Performed By: #### 5 7021-8 #### TITUS Mrecado ([id number]) [facility] ([facility]) [address] [place] [address] 51157 GFR/1.73 sq M.predicted MDRD (S/P/Bld) [Vol rate/Area] mL/min/{1.73_m2} Normal >60 [facility] Comment on above: Result Comment: Calc ulations of estimated GFR are performed using the 2020 CKD-EPI Study Refit equation without the race variable for the IDMS-Traceable creatinine methods. https://jasn.asnjournals.org/content/early//ASN.92780 76939 Performed By: #### 5 7021-8 #### TITUS Mercado ([id number]) [facility] ([facility]) [address] [place] [address] 81596 Glucose [Mass/Vol] 159 mg/dL High 74-99 [facility] Comment on above: Performed By: #### 5 7021-8 #### TITUS Mercado ([id number]) [facility] ([facility]) [address] [place] [address] 00820 Potassium [Moles/Vol] 4.5 mmol/L Normal 3.5-5.3 [facility] Comment on above: Performed By: #### 5 7021-8 #### TITUS SOLORZANO L ([id number]) [facility] ([facility]) [address] [place] [address] 60254 Sodium [Moles/Vol] 138 mmol/L Normal 136-145 [facility] Comment on above: Performed By: #### 5 7021-8 #### TITUS SOLORZANO L ([id number]) [facility] ([facility]) [address] [place] [address] 69374 Urea nitrogen [Mass/Vol] 14 mg/dL Normal 6-23 [facility] Comment on above: Performed By: #### 5 7021-8 #### TITUS Mercado ([id number]) [facility] ([facility]) [address] [place] [address] 20636 CBC panel Auto (Bld)on 04-10 Erythrocyte distribution width (RBC) [Ratio] 13.3 % 11.5 - 14.5 % [facility] Hematocrit (Bld) [Volume fraction] 38 % Low 41.0 - 52.0 % [facility] Hemoglobin (Bld) [Mass/Vol] 12.9 g/dL Low 13.5 - 17.5 g/dL [facility] Interpretation and review of laboratory results Abnormal [facility] MCH (RBC) [Entitic mass] 31.9 pg 26.0 - 34.0 pg [facility] MCHC (RBC) [Mass/Vol] 33.9 g/dL 32.0 - 36.0 g/dL [facility] MCV (RBC) [Entitic vol] 94 fL 80 - 100 fL [facility] Nucleated RBC/100 WBC (Bld) [Ratio] 0 % [facility] Platelets (Bld) [#/Vol] 221 10*3/uL [facility] RBC (Bld) [#/Vol] 4.05 10*6/uL Low [facility] WBC (Bld) [#/Vol] 9.6 10*3/uL [facility] Erythrocyte distribution width (RBC) [Ratio] 13.3 % Normal 11.5-14.5 [facility] Comment on above: Performed By: #### 5 7021-8 #### TITUS Mercado ([id number]) [facility] ([facility]) [address] [place] [address] 19918 Hematocrit (Bld) [Volume fraction] 38.0 % Low 41.0-52.0 [facility] Comment on above: Performed By: #### 5 7021-8 #### TITUS Mercado ([id number]) [facility] ([facility]) [address] [place] [address] 87675 Hemoglobin (Bld) [Mass/Vol] 12.9 g/dL Low 13.5-17.5 [facility] Comment on above: Performed By: #### 5 7021-8 #### TITUS Mercado ([id number]) [facility] ([facility]) [address] [place] [address] 92383 MCH (RBC) [Entitic mass] 31.9 pg Normal 26.0-34.0 [facility] Comment on above: Performed By: #### 5 7021-8 #### TITUS Mercado ([id number]) [facility] ([facility]) [address] [place] [address] 88220 MCHC (RBC) [Mass/Vol] 33.9 g/dL Normal 32.0-36.0 [facility] Comment on above: Performed By: #### 5 7021-8 #### TITUS Mercado ([id number]) [facility] ([facility]) [address] [place] [address] 66162 MCV (RBC) [Entitic vol] 94 fL Normal 80-100 [facility] Comment on above: Performed By: #### 5 7021-8 #### TITUS Mercado ([id number]) [facility] ([facility]) [address] [place] [address] 91308 Nucleated RBC/100 WBC (Bld) [Ratio] 0.0 /100 WBCs Normal 0.0-0.0 [facility] Comment on above: Performed By: #### 5 7021-8 #### TITUS Mercado ([id number]) [facility] ([facility]) [address] [place] [address] 20143 Platelets (Bld) [#/Vol] 221 x10*3/uL Normal 150-450 [facility] Comment on above: Performed By: #### 5 7021-8 #### TITUS Mercado ([id number]) [facility] ([facility]) [address] [place] [address] 86512 RBC (Bld) [#/Vol] 4.05 x10*6/uL Low 4.50-5.90 [facility] Comment on above: Performed By: #### 5 7021-8 #### TITUS Mercado ([id number]) [facility] ([facility]) [address] [place] [address] WBC (Bld) [#/Vol] 9.6 x10*3/uL Normal 4.4-11.3 [facility] Comment on above: Performed By: #### 5 7021-8 #### TITUS SOLORZANO L ([id number]) [facility] ([facility]) [address] [place] [address] XR CERVICAL SPINE 2-3 VIEWSo n 04-10-2024 XR CERVICAL SPINE 2-3 VIEWS Interpreted By: Shubham Eubanks, STUDY: Cervical spine dated 04/10/2024. INDICATION: Signs/Symptoms:Post surgery COMPARISON: None. ACCESSION NUMBER(S): [id number] ORDERING CLINICIAN: DORETHA HARRIS TECHNIQUE: Two views [...] Shubham Eubanks 04/10/2024 10:05 AM Dictation workstation: [id number] [facility] Comment on above: Order Comment: Pleas e have patient upright XR Cervical spine 2 or 3 Vie wson 04-10-2024 Surgical and degener ative change as above without osseous injury evident. MACRO: None Signed by: Shubham Eubanks 04/10/2024 10:05 AM Dictation workstation: [id number] [facility]ODAL Interpreted By: Shubham Curran, STUDY: Cervical spine dated 04/10/2024. INDICATION: Signs/Symptoms:Post surgery COMPARISON: None. ACCESSION NUMBER(S): [id number] ORDERING CLINICIAN: DORETHA HARRIS TECHNIQUE: Two views [...] seen at the right neck soft tissues. [facility] MMODAL Shubham Eubanks M D - 04/10/2024 Interpreted By: Shubham Eubanks, STUDY: Cervical spine dated 04/10/2024. INDICATION: Signs/Symptoms:Post surgery COMPARISON: None. ACCESSION NUMBER(S): [id number] ORDERING CLINICIAN: DORETHA HARRIS TECHNIQUE: Two views [...] Shubham Eubanks 04/10/2024 10:05 AM Dictation workstation: [id number] [facility] Work Phone: Radiology Study observation (narrative) [facility] Work Phone: XR Cervical spine 2 or 3 Vie wsOrdered By: Shubham Eubanks on 04-10-2024 [facility] Work Phone: Blood type and Indirect anti body screen panel (Bld)on 04-09-2024 ABO group Nom (Bld) A [facility] Blood group antibody screen Ql Negative [facility] D Ag Ql (Bld) Positive [facility] ABO group Nom (Bld) A [facility] Comment on above: Order Comment: As ne eded for scheduled for aortic, liver, cardiac, or thoracic surgery OR hgb<7.5mg/dl and no active type and screen. Performed By: #### 5 7021-8 #### TITUS Mercado ([id number]) [facility] ([facility]) [address] [place] [address] 90003 Blood group antibody screen Ql Negative [facility] Comment on above: Order Comment: As ne eded for scheduled for aortic, liver, cardiac, or thoracic surgery OR hgb<7.5mg/dl and no active type and screen. Performed By: #### 5 7021-8 #### TITUS Mercado ([id number]) [facility] ([facility]) [address] [place] [address] 73210 D Ag Ql (Bld) Positive [facility] Comment on above: Order Comment: As ne eded for scheduled for aortic, liver, cardiac, or thoracic surgery OR hgb<7.5mg/dl and no active type and screen. Performed By: #### 5 7021-8 #### TITUS Mercado ([id number]) [facility] ([facility]) [address] [place], [place] [id number] [place] FLUORO IMAGES NO CHARGEon 04-09-2024 [place] FLUORO IMAGES NO CHARGE These images are not reportable by radiology and will not be interpreted by Radiologists. Normal [facility] Gas and Carbon monoxide and Electrolytes panel (BldA)on 04-09-2024 Anion gap 4 (BldA) [Moles/Vol] 8 Low [facility] Base excess Calc (Bld) [Moles/Vol] -1.9000 mmol/L -2.0 - 3.0 mmol/L [facility] Calcium.ionized (BldA) [Moles/Vol] 1.24 mmol/L 1.10 - 1.33 mmol/L [facility] Chloride (BldA) [Moles/Vol] 104 mmol/L 98 - 107 mmol/L [facility] CO2 (Bld) [Partial pressure] 46 mm[Hg] High [facility] Glucose [Mass/Vol] 132 mg/dL High 74 - 99 mg/dL [facility] HCO3 (Bld) [Moles/Vol] 24.3 mmol/L 22.0 - 26.0 mmol/L [facility] Hematocrit Est (Bld) [Volume fraction] 39 % Low 41.0 - 52.0 % [facility] Hemoglobin (Bld) [Mass/Vol] 12.9 g/dL Low 13.5 - 17.5 g/dL [facility] Inhaled oxygen concentration 44 % [facility] Interpretation and review of laboratory results Abnormal [facility] Lactate (BldA) [Moles/Vol] 0.7 mmol/L 0.4 - 2.0 mmol/L [facility] Oxygen (Bld) [Partial pressure] 156 mm[Hg] High [facility] Oxyhemoglobin (BldA) [Mass fraction] 95 % 94.0 - 98.0 % [facility] pH (Bld) 7.33 [pH] Low 7.38 - 7.42 pH [facility] Potassium (BldA) [Moles/Vol] 4.5 mmol/L 3.5 - 5.3 mmol/L [facility] Sodium (BldA) [Moles/Vol] 132 mmol/L Low 136 - 145 mmol/L [facility] Anion gap 4 (BldA) [Moles/Vol] 8 mmo/L Low 10-25 [facility] Comment on above: Performed By: #### 5 7021-8 #### TITUS Mercado ([id number]) [facility] ([facility]) [address] [place] [address] 41962 Base excess Calc (Bld) [Moles/Vol] -1.9000 mmol/L Normal -2.0-3.0 [facility] Comment on above: Performed By: #### 5 7021-8 #### TITUS Mercado ([id number]) [facility] ([facility]) [address] [place] [address] 69009 Calcium.ionized (BldA) [Moles/Vol] 1.24 mmol/L Normal 1.10-1.33 [facility] Comment on above: Performed By: #### 5 7021-8 #### TITUS Mercado ([id number]) [facility] ([facility]) [address] [place] [address] 59311 Chloride (BldA) [Moles/Vol] 104 mmol/L Normal 98-107 [facility] Comment on above: Performed By: #### 5 7021-8 #### TITUS Mercado ([id number]) [facility] ([facility]) [address] [place] [address] 13680 CO2 (Bld) [Partial pressure] 46 mm Hg High 38-42 [facility] Comment on above: Performed By: #### 5 7021-8 #### TITUS Mercado ([id number]) [facility] ([facility]) [address] [place] [address] 08217 Glucose [Mass/Vol] 132 mg/dL High 74-99 [facility] Comment on above: Performed By: #### 5 7021-8 #### TITUS Mercado (79695) [facility] ([facility]) [address] [place] [address] 61503 HCO3 (Bld) [Moles/Vol] 24.3 mmol/L Normal 22.0-26.0 [facility] Comment on above: Performed By: #### 5 7021-8 #### TITUS Mercado ([id number]) [facility] ([facility]) [address] [place] [address] 14319 Hematocrit Est (Bld) [Volume fraction] 39.0 % Low 41.0-52.0 [facility] Comment on above: Performed By: #### 5 7021-8 #### TITUS Mercado ([id number]) [facility] ([facility]) [address] [place] [address] 23150 Hemoglobin (Bld) [Mass/Vol] 12.9 g/dL Low 13.5-17.5 [facility] Comment on above: Performed By: #### 5 7021-8 #### TITUS Mercado ([id number]) [facility] ([facility]) [address] [place] [address] 29340 Inhaled oxygen concentration 44 % Normal [facility] Comment on above: Performed By: #### 5 7021-8 #### TITUS Mercado ([id number]) [facility] ([facility]) [address] [place] [address] 90085 Lactate (BldA) [Moles/Vol] 0.7 mmol/L Normal 0.4-2.0 [facility] Comment on above: Performed By: #### 5 7021-8 #### TITUS Mercado ([id number]) [facility] ([facility]) [address] [place] [address] 46867 Oxygen (Bld) [Partial pressure] 156 mm Hg High 85-95 [facility] Comment on above: Performed By: #### 5 7021-8 #### TIUTS Mercado ([id number]) [facility] ([facility]) [address] [place] [address] 06073 Oxyhemoglobin (BldA) [Mass fraction] 95.0 % Normal 94.0-98.0 [facility] Comment on above: Performed By: #### 5 7021-8 #### TITUS Mercado ([id number]) [facility] ([facility]) [address] [place] [address] 90799 pH (Bld) 7.33 [pH] Low 7.38-7.42 [facility] Comment on above: Performed By: #### 5 7021-8 #### TITUS Mercado (46265) [facility] ([facility]) [address] [place] [address] 36634 Potassium (BldA) [Moles/Vol] 4.5 mmol/L Normal 3.5-5.3 [facility] Comment on above: Performed By: #### 5 7021-8 #### TITUS Mercado ([id number]) [facility] ([facility]) [address] [place] [address] 40027 Sodium (BldA) [Moles/Vol] 132 mmol/L Low 136-145 [facility] Comment on above: Performed By: #### 5 7021-8 #### TITUS Mercado ([id number]) [facility] ([facility]) [address] [place] [address] 90500 XR tomography Unspecified monique dy regionon 04-09-2024 These images are not reportable by radiology and will not be interpreted by Radiologists. IMAGING CT TRANSFER OF OUTSIDE FILMS on 03-31-2024 CT TRANSFER OF OUTSIDE FILMS Outside images for comparison or treatment purposes, not interpreted by Radiologists. [facility] Study Interpretation of outs jeffrey studyon 03-31-2024 Outside images for comparison or treatment purposes, not interpreted by Radiologists. IMAGING Blood type and Indirect anti body screen panel (Bld)on 03-26-2024 ABO group Nom (Bld) A [facility] Comment on above: Performed By: #### 3 4532-2 #### TITUS Mercado ([id number]) [facility] ([facility]) [address] [place] [address] Blood group antibody screen Ql Negative [facility] Comment on above: Performed By: #### 3 4532-2 #### TITUS Mercado ([id number]) [facility] ([facility]) [address] [place] [address] D Ag Ql (Bld) Positive [facility] Comment on above: Performed By: #### 3 4532-2 #### ITTUS Mercado ([id number]) [facility] ([facility]) [address] [place] [address] DEXA BONE DENSITYon 02-13-20 24 DEXA BONE DENSITY Interpreted By: Ruddy Simmons, STUDY: DEXA BONE DENSITY02/13/2024 10:50 am INDICATION: Signs/Symptoms:r/o osteoporosis, NEED AXIAL SKELETON IMAGES.. The patient is a 63 y/o year old M. ,M54.12 Radiculopathy, cervical region COMPARISON: None. ACCESSION NUMBER(S): [id number] ORDERING CLINICIAN: DORETHA HARRIS TECHNIQUE: DEXA BONE [...] Ruddy Lopez 12/29/2024 8:09 AM Dictation workstation: [id number] [facility] DXA Skeletal system Views fo r bone [...] Radiculopathy, cervical region COMPARISON: None. ACCESSION NUMBER(S): [id number] ORDERING CLINICIAN: DORETHA HARRIS FINDINGS: C-spine, 6 [...] Romulo Medrano 02/19/2024 6:35 PM Dictation workstation: [id number] [facility] Comment on above: Order Comment: Micheal christiano marlene with flexion and extension XR CHEST 2 VIEWSon XR CHEST 2 VIEWS Interpreted By: Romulo Hubbard, STUDY: XR CHEST 2 VIEWS; 02/13/2024 11:10 am INDICATION: Signs/Symptoms:Preop surgery 02/[address] Steven MD. ,M54.12 Radiculopathy, cervical region,M81.0 Age-related osteoporosis without current pathological fracture COMPARISON: None. ACCESSION NUMBER(S): [id number] ORDERING CLINICIAN: DORETHA HARRIS FINDINGS: CARDIOMEDIASTINAL SILHOUETTE: Cardiomediastinal silhouette is normal in size and configuration. LUNGS: Lungs are clear. ABDOMEN: No remarkable upper abdominal findings. BONES: No acute osseous changes. IMPRESSION: 1. No evidence of acute cardiopulmonary process. MACRO: None Signed by: Romulo Medrano 02/19/2024 6:53 PM Dictation workstation: [id number] [facility] ECG 12 leadOrdered By: Shavon Rico on 02-12-2024 Atrial Rate 63 BPM [facility] Work Phone: [phone] P [place] 58 degrees [facility] Work Phone: [phone] P Offset 149 ms [facility] Work Phone: [phone] P Onset 90 ms [facility] Work Phone: [phone] Interval 268 ms [facility] Work Phone: [phone] Q Onset 224 ms [facility] Work Phone: [phone] QRS Count 10 beats [facility] Work Phone: [phone] QRS Duration 74 ms [facility] Work Phone: [phone] QT Interval 406 ms [facility] Work Phone: [phone] QTC Calculation(Bazett) 415 ms [facility] Work Phone: [phone] QTC Fredericia 412 ms [facility] Work Phone: R [place] -3 degrees [facility] Work Phone: T [place] 18 degrees [facility] Work Phone: T Offset 427 ms [facility] Work Phone: Ventricular Rate 63 BPM [facility] Work Phone: [facility] Work Phone: ECG 12 leadon 02-12-2024 [...] Tobi Rico ([id number]) on 02/12/2024 12:20:00 PM [facility] Work Phone: Basic metabolic 2000 panelon 02-11-2024 Anion gap [Moles/Vol] 13 mmol/L Normal 10-20 [facility] Comment on above: Performed By: #### 2 4321-2 #### TITUS Mercado ([id number]) [facility] ([facility]) [address] [place] [address] 04407 Calcium [Mass/Vol] 9.6 mg/dL Normal 8.6-10.6 [facility] Comment on above: Performed By: #### 2 4321-2 #### TITUS Mercado ([id number]) [facility] ([facility]) [address] [place] [address] 23971 Chloride [Moles/Vol] 104 mmol/L Normal 98-107 [facility] Comment on above: Performed By: #### 2 4321-2 #### TITUS Mercado ([id number]) [facility] ([facility]) [address] [place] [address] CO2 [Moles/Vol] 26 mmol/L Normal 21-32 [facility] Comment on above: Performed By: #### 2 4321-2 #### TITUS Mercado ([id number]) [facility] ([facility]) [address] [place] [address] Creatinine [Mass/Vol] 0.89 mg/dL Normal 0.50-1.30 [facility] Comment on above: Performed By: #### 2 4321-2 #### TITUS Mercado ([id number]) [facility] ([facility]) [address] [place] [address] GFR/1.73 sq M.predicted MDRD (S/P/Bld) [Vol rate/Area] mL/min/{1.73_m2} Normal >60 [facility] Comment on above: Result Comment: Calc ulations of estimated GFR are performed using the 2020 CKD-EPI Study Refit equation without the race variable for the IDMS-Traceable creatinine methods. https://jasn.asnjournals.org/content/early/ASN.54280 19534 Performed By: #### 2 4321-2 #### TITUS Mercado ([id number]) [facility] ([facility]) [address] [place] [address] Glucose [Mass/Vol] 77 mg/dL Normal 74-99 [facility] Comment on above: Performed By: #### 2 4321-2 #### TITUS Mercado ([id number]) [facility] ([facility]) [address] [place], [place] [address] Potassium [Moles/Vol] 4.6 mmol/L Normal 3.5-5.3 [facility] Comment on above: Performed By: #### 2 4321-2 #### TITUS Mercado ([id number]) [facility] ([facility]) [address] [place] [address] Sodium [Moles/Vol] 138 mmol/L Normal 136-145 [facility] Comment on above: Performed By: #### 2 4321-2 #### TITUS Mercado ([id number]) [facility] ([facility]) [address] [place], [place] [address] Urea nitrogen [Mass/Vol] 9 mg/dL Normal 6-23 [facility] Comment on above: Performed By: #### 2 4321-2 #### TITUS Mercado ([id number]) [facility] ([facility]) [address] [place], [place] [address] Blood type and Indirect anti body screen panel (Bld)on 02-11-2024 ABO group Nom (Bld) A [facility] Comment on above: Performed By: #### 3 4532-2 #### TITUS Mercado ([id number]) [facility] ([facility]) [address] [place], [place] [address] Blood group antibody screen Ql Negative Normal [facility] Comment on above: Performed By: #### 3 4532-2 #### TITUS Mercado ([id number]) [facility] ([facility]) [address] [place], [place] [address] D Ag Ql (Bld) Positive Normal [facility] Comment on above: Performed By: #### 3 4532-2 #### TITUS Mercado ([id number]) [facility] ([facility]) [address] [place], [place] [address] CBC W Auto Differential pane l (Bld)on 02-11-2024 Basophils (Bld) [#/Vol] 0.04 x10*3/uL Normal 0.00-0.10 [facility] Comment on above: Performed By: #### 5 7021-8 #### TITUS Mercado ([id number]) [facility] ([facility]) [address] [place] [address] 239[address] Basophils/100 WBC (Bld) 0.8 % Normal 0.0-2.0 [facility] Comment on above: Performed By: #### 5 7021-8 #### TITUS Mercado ([id number]) [facility] ([facility]) [address] [place] [address] Eosinophils (Bld) [#/Vol] 0.05 x10*3/uL Normal 0.00-0.70 [facility] Comment on above: Performed By: #### 5 7021-8 #### TITUS Mercado ([id number]) [facility] ([facility]) [address] [place] [address]70 Eosinophils/100 WBC (Bld) 1.0 % Normal 0.0-6.0 [facility] Comment on above: Performed By: #### 5 7021-8 #### TITUS Mercado ([id number]) [facility] ([facility]) [address] [place] [address] Erythrocyte distribution width (RBC) [Ratio] 13.2 % Normal 11.5-14.5 [facility] Comment on above: Performed By: #### 5 7021-8 #### TITUS Mercado ([id number]) [facility] ([facility]) [address] [place] [address] Hematocrit (Bld) [Volume fraction] 39.6 % Low 41.0-52.0 [facility] Comment on above: Performed By: #### 5 7021-8 #### TITUS Mercado ([id number]) [facility] ([facility]) [address] [place] [address] Hemoglobin (Bld) [Mass/Vol] 13.2 g/dL Low 13.5-17.5 [facility] Comment on above: Performed By: #### 5 7021-8 #### TITUS Mercado ([id number]) [facility] ([facility]) [address] [place] [address] Immature granulocytes (Bld) [#/Vol] 0.00 x10*3/uL Normal 0.00-0.70 [facility] Comment on above: Performed By: #### 5 7021-8 #### TITUS Mercado ([id number]) [facility] ([facility]) [address] [place] [address] 27858 Immature granulocytes/100 WBC (Bld) 0.0 % Normal 0.0-0.9 [facility] Comment on above: Result Comment: Dayan ture Granulocyte Count (IG) includes promyelocytes, myelocytes and metamyelocytes but does not include bands. Percent differential counts (%) should be interpreted in the context of the absolute cell counts (cells/UL). Performed By: #### 5 7021-8 #### TITUS Mercado ([id number]) [facility] ([facility]) [address] [place] [address]649 Lymphocytes (Bld) [#/Vol] 1.74 x10*3/uL Normal 1.20-4.80 [facility] Comment on above: Performed By: #### 5 7021-8 #### TITUS Mercado ([id number]) [facility] ([facility]) [address] [place] [address] 18807 Lymphocytes/100 WBC (Bld) 33.1 % Normal 13.0-44.0 [facility] Comment on above: Performed By: #### 5 7021-8 #### TITUS Mercado ([id number]) [facility] ([facility]) [address] [place] [address]64 MCH (RBC) [Entitic mass] 31.5 pg Normal 26.0-34.0 [facility] Comment on above: Performed By: #### 5 7021-8 #### TITUS Mercado ([id number]) [facility] ([facility]) [address] [place] [address]139 MCHC (RBC) [Mass/Vol] 33.3 g/dL Normal 32.0-36.0 [facility] Comment on above: Performed By: #### 5 7021-8 #### TITUS Mercado ([id number]) [facility] ([facility]) [address] [place] [address] MCV (RBC) [Entitic vol] 95 fL Normal 80-100 [facility] Comment on above: Performed By: #### 5 7021-8 #### TITUS Mercado ([id number]) [facility] ([facility]) [address] [place] [address] Monocytes (Bld) [#/Vol] 0.30 x10*3/uL Normal 0.10-1.00 [facility] Comment on above: Performed By: #### 5 7021-8 #### TITUS Mercado ([id number]) [facility] ([facility]) [address] [place] [address]21 Monocytes/100 WBC (Bld) 5.7 % Normal 2.0-10.0 [facility] Comment on above: Performed By: #### 5 7021-8 #### TITUS Mercado ([id number]) [facility] ([facility]) [address] [place] [address]10[address] Neutrophils (Bld) [#/Vol] 3.13 x10*3/uL Normal 1.20-7.70 [facility] Comment on above: Result Comment: Perc ent differential counts (%) should be interpreted in the context of the absolute cell counts (cells/uL). Performed By: #### 5 7021-8 #### TITUS Mercado ([id number]) [facility] ([facility]) [id number] [place] [address] 01897 Neutrophils/100 WBC (Bld) 59.4 % Normal 40.0-80.0 [facility] Comment on above: Performed By: #### 5 7021-8 #### TITUS Mercado ([id number]) [facility] ([facility]) [address] [place] [address] 15448 Nucleated RBC/100 WBC (Bld) [Ratio] 0.0 /100 WBCs Normal 0.0-0.0 [facility] Comment on above: Performed By: #### 5 7021-8 #### TITUS Mercado ([id number]) [facility] ([facility]) [address] [place] [address] 10244 Platelets (Bld) [#/Vol] 271 x10*3/uL Normal 150-450 [facility] Comment on above: Performed By: #### 5 7021-8 #### TITUS SOLORZANO L ([id number]) [facility] ([facility]) [address] [place] [address] RBC (Bld) [#/Vol] 4.19 x10*6/uL Low 4.50-5.90 [facility] Comment on above: Performed By: #### 5 7021-8 #### TITUS PAYANMOTZER L ([id number]) [facility] ([facility]) [address] [place] [address] WBC (Bld) [#/Vol] 5.3 x10*3/uL Normal 4.4-11.3 [facility] Comment on above: Performed By: #### 5 7021-8 #### TITUS ELENAER L ([id number]) [facility] ([facility]) [address] [place] [address] ECG 12-LEADon 02-11-2024 ECG 12-LEAD Ventricular Rate 63 Atrial Rate 63 P-R Interval 268 QRS Duration 74 Q-T Interval 406 QTC Calculation(Bazett) 415 P [place] 58 R [place] -3 T [place] 18 QRS Count 10 Q Onset 224 P Onset 90 P Offset 149 T Offset 427 QTC Fredericia 412 Diagnosis Sinus rhythm with 1st degree AV block Otherwise normal ECG When compared with ECG of 30-JAN-2019 19:26, heart rate decreased Confirmed by Tobi Rico ([id number]) on 02/12/2024 12:20:00 PM Normal [facility] NICOTINE AND METABOLITES,Son 02-11-2024 Cotinine [Mass/Vol] 152 ng/mL [facility] Comment on above: Performed By: #### N I+ME #### [facility]) ([id number]) [address] [place] [address]3982 Nicotine [Mass/Vol] 6 ng/mL [facility] Comment on above: Result Comment: INTE [...] developed and its performance characteristics determined by [email or web address]. It has not been cleared or approved by the US Food and Drug Administration. This test was performed in a CLIA certified laboratory and is intended for clinical purposes. Performed By: [email or web address] [address] [place] [address] Dental Internship: Benjamin Bullock MD, PhD CLIA Number: [id number] Performed By: #### N I+ME #### [facility] ([id number]) [address] [place] [address] 16928 PT and aPTT panel Coag (PPP) on 02-11-2024 aPTT Coag (PPP) [Time] 33 s Normal 27-38 [facility] Comment on above: Order Comment: The A PTT is no longer used for monitoring Unfractionated Heparin Therapy. For monitoring Heparin Therapy, use the Heparin Assay. Performed By: #### 3 4529-8 #### TITUS Mercado ([id number]) [facility] ([facility]) [address] [place] [address] 67624 INR Coag (PPP) [Relative time] 1.0 Normal 0.9-1.1 [facility] Comment on above: Order Comment: The A PTT is no longer used for monitoring Unfractionated Heparin Therapy. For monitoring Heparin Therapy, use the Heparin Assay. Performed By: #### 3 4529-8 #### TITUS Mercado ([id number]) [facility] ([facility]) [address] [place] [address] 49922 PT Coag (PPP) [Time] 11.5 s Normal 9.8-12.8 [facility] Comment on above: Order Comment: The A PTT is no longer used for monitoring Unfractionated Heparin Therapy. For monitoring Heparin Therapy, use the Heparin Assay. Performed By: #### 3 4529-8 #### TITUS Mercado ([id number]) [facility] ([facility]) [address] [place] [address] 18773 Staphylococcus aureus.methic illin resistant isolateon 02-11-2024 MRSA isol Org specific cx Ql (Nose) Test: Staphylococcus aureus/MRSA colonization, Culture Specimen Source: Anterior Nares Specimen Type: Swab Specimen Date: 02/11/2024 1505 Result Date: 02/13/2024 08 Result Status: Final result Abnormal: No Resulting Lab: [facility] [address] [place], [place] [address] CULTURE No Staphylococcus aureus isolated Normal [facility] Comment on above: Performed By: #### 5 2969-3 #### TITUS Mercado ([id number]) [facility] ([facility]) [address] [place] [address] 38521 Urinalysis complete W Reflex Culture panel (U)on 02-11-2024 Appearance (U) Clear Normal Clear [facility] Comment on above: Performed By: #### 5 8077-9 #### TITUS Mercado ([id number]) [facility] ([facility]) [address] [place] [address] 92007 Bilirubin (U) [Mass/Vol] Negative Normal NEGATIVE [facility] Comment on above: Performed By: #### 5 8077-9 #### TITUS Mercado ([id number]) [facility] ([facility]) [address] [place] [address] 06462 Color (U) Colorless Normal Light-Sunflower ow, Yellow, Dark-Yello w [facility] Comment on above: Performed By: #### 5 8077-9 #### TITUS Mercado ([id number]) [facility] ([facility]) [address] [place] [address] 93568 Glucose Auto test strip (U) [Mass/Vol] Normal Normal Normal [facility] Comment on above: Performed By: #### 5 8077-9 #### TITUS Mercado ([id number]) [facility] ([facility]) [address] [place] [address] 46612 Ketones (U) [Mass/Vol] Negative Normal [facility]GATIVE [facility] Comment on above: Performed By: #### 5 8077-9 #### TITUS Mercado ([id number]) [facility] ([facility]) [address] [place] [address]553 Leukocyte esterase Auto test strip Ql (U) Negative Normal NEGATIVE [facility] Comment on above: Performed By: #### 5 8077-9 #### TITUS Mercado ([id number]) [facility] ([facility]) [address] [place] [address] 21407 Nitrite Auto test strip Ql (U) Negative Normal NEGATIVE [facility] Comment on above: Performed By: #### 5 8077-9 #### TITUS Mercado ([id number]) [facility] ([facility]) [address] [place] [address] 47916 pH (U) 5.5 [pH] Normal 5.0, 5.5, 6.0, 6.5, 7.0, 7.5, 8.0 [facility] Comment on above: Performed By: #### 5 8077-9 #### TITUS Mercado ([id number]) [facility] ([facility]) [address] [place] [address] 92984 Protein (U) [Mass/Vol] Negative Normal NEGAT KURT, 10 (TRACE), 20 (TRACE) [facility] Comment on above: Performed By: #### 5 8077-9 #### TITUS Mercado ([id number]) [facility] ([facility]) [address] [place] [address] 65079 RBC (U) [#/Vol] Negative Normal NEGATIVE [facility] Comment on above: Performed By: #### 5 8077-9 #### TITUS Mercado ([id number]) [facility] ([facility]) [address] [place] [address] Specific gravity (U) [Rel density] 1.007 Normal 1.005-1.03 5 [facility] Comment on above: Performed By: #### 5 8077-9 #### TITUS Mercado ([id number]) [facility] ([facility]) [address] [place] [address] Urobilinogen (U) [Mass/Vol] Normal Normal Normal [facility] Comment on above: Performed By: #### 5 8077-9 #### TITUS Mercado ([id number]) [facility] ([facility]) [id number] [place] [address] 35242 MR BRAIN TUMOR PERFUSION PRO TOCOL W AND WO IV CONTRASTon 12-13-2023 MR BRAIN TUMOR PERFUSION PROTOCOL W AND WO IV CONTRAST Interpreted By: Nate Benavidez, STUDY: MR BRAIN TUMOR PERFUSION PROTOCOL W AND WO IV CONTRAST; 12/13/2023 8:49 am INDICATION: Signs/Symptoms:pontine lesion, imaging surveillance. COMPARISON: None. ACCESSION NUMBER(S): [id number] ORDERING CLINICIAN: SHIMON HEATON TECHNIQUE: Axial diffusion, [...] Nate Benavidez 12/13/2023 9:38 AM Dictation workstation: [id number] [facility] Comment on above: Order Comment: JESSICA huerta cc'd to jack MR Brain for new diagnosis t umor WO and W contrast Tristin 12-13-2023 There is again evide nce of nonspecific nonenhancing ill-defined abnormal bright signal on the FLAIR and T2 weighted images infiltrating the brainstem most pronounced within the joes right slightly greater than left unchanged in [...] Nate Benavidez 12/13/2023 9:38 AM Dictation workstation: [id number] Interpreted By: Nate Dejesus, STUDY: MR BRAIN TUMOR PERFUSION PROTOCOL W AND WO IV CONTRAST; 12/13/2023 8:49 am INDICATION: Signs/Symptoms:pontine lesion, imaging surveillance. COMPARISON: None. ACCESSION NUMBER(S): [id number] ORDERING CLINICIAN: SHIMON HEATON TECHNIQUE: Axial diffusion, [...] lesion, imaging surveillance. COMPARISON: None. ACCESSION NUMBER(S): [id number] ORDERING CLINICIAN: SHIMON HEATON TECHNIQUE: Axial diffusion, [...] Nate Benavidez 12/13/2023 9:38 AM Dictation workstation: [id number] [facility] Work Phone: Radiology Study observation (narrative) [facility] Work Phone: MR Brain for new diagnosis t umor WO and W contrast IVOrdered By: Nate Benavidez on 12-13-2023 [facility] Work Phone: Basophils Auto (Bld) [#/Vol] on 10-26-2023 Basophils (Bld) [#/Vol] 0.04 10*3/uL <0.11 [facility] Basophils/100 WBC Auto (Bld) on 10-26-2023 Basophils/100 WBC (Bld) 0.5 % [facility] Blood manual differential co mment interpretation narrativeon 10-26-2023 Manual differential comment Curtis (Bld) [Interp] Auto [facility] CBC W Auto Differential pane l (Bld)on 10-26-2023 Basophils (Bld) [#/Vol] 0.04 10*3/uL [facility] Basophils/100 WBC (Bld) 0.5 % [facility] Differential cell count method Nom (Bld) Auto [facility] Eosinophils (Bld) [#/Vol] 0.13 10*3/uL [facility] Eosinophils/100 WBC (Bld) 1.5 % [facility] Erythrocyte distribution width (RBC) [Ratio] 13.8 % 11.5 - 15.0 % [facility] Hematocrit (Bld) [Volume fraction] 42.6 % 39.0 - 51.0 % [facility] Hemoglobin (Bld) [Mass/Vol] 14.4 g/dL 13.0 - 17.0 g/dL [facility] Immature granulocytes (Bld) [#/Vol] 0.03 10*3/uL [facility] Immature granulocytes/100 WBC (Bld) 0.3 % [facility] Lymphocytes (Bld) [#/Vol] 2.18 10*3/uL [facility] Lymphocytes/100 WBC (Bld) 24.8 % [facility] MCH (RBC) [Entitic mass] 32.0 pg 26.0 - 34.0 pg [facility] MCHC (RBC) [Mass/Vol] 33.8 g/dL 30.5 - 36.0 g/dL [facility] MCV (RBC) [Entitic vol] 94.7 fL 80.0 - 100.0 fL [facility] Monocytes (Bld) [#/Vol] 0.60 10*3/uL [facility] Monocytes/100 WBC (Bld) 6.8 % [facility] Neutrophils (Bld) [#/Vol] 5.80 10*3/uL [facility] Neutrophils/100 WBC (Bld) 66.1 % [facility] Nucleated RBC (Bld) [#/Vol] NINF [facility] Nucleated RBC/100 WBC (Bld) [Ratio] 0.0 % /100 WBC [facility] Platelet mean volume (Bld) [Entitic vol] 10.2 fL 9.0 - 12.7 fL [facility] Platelets (Bld) [#/Vol] 314 10*3/uL [facility] RBC (Bld) [#/Vol] 4.50 10*6/uL 4.20 - 6.00 m/uL [facility] WBC (Bld) [#/Vol] 8.78 10*3/uL [facility] CT Chest W contrast Tristin IMPRESSION: 1. [...] any questions regarding this interpretation, please call [phone]. If you are unable to reach us at the number above, please feel free to contact [facility] at [phone]. DIVISION OF RADIOLOGY * * *Final Report* * * DATE OF EXAM: Oct 26 2023 10:05AM [facility] 0539 - CT CHEST W [...] No additional findings. DIVISION OF RADIOLOGY Provider, [facility] - 10/26/2023 * * *Final Report* * * DATE OF EXAM: Oct 26 2023 10:05AM [facility] 0539 - CT CHEST W [...] any questions regarding this interpretation, please call [phone]. If you are unable to reach us at the number above, please feel free to contact [facility] at [phone]. [facility] CT Neck W contrast Tristin 05-1 IMPRESSION: Primary: 1: Expected post-treatment changes in the neck without evidence of recurrent disease in the primary site. Neck: 1: No evidence of abnormal lymph nodes. [email or web address] Transcribe Date/Time: Oct 26 2023 10:15A Dictated by: LIMA LIZ MD This examination was interpreted and the report reviewed and electronically signed by: LIMA LIZ MD on Oct 26 2023 10:35AM EST Thank you for allowing us to participate in the care of your patient. Should there be any questions regarding this interpretation, please call [phone]. If you are unable to reach us at the number above, please feel free to contact [facility] at [phone]. DIVISION OF RADIOLOGY * * *Final Report* * * DATE OF EXAM: Oct 26 2023 10:05AM 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 Resected T1 N1 base [...] normal. Parotid and submandibular spaces are normal. Project Eng spaces appear normal. Infrahyoid Neck: Hypopharynx, larynx, [...] are clear of focal consolidation or mass. Slubber Runner (topogram) images: Noncontributory DIVISION OF RADIOLOGY Provider, Dacia Nieto [facility] - 10/26/2023 * * *Final Report* * * DATE OF EXAM: Oct 26 2023 10:05AM 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 Resected T1 N1 base [...] normal. Parotid and submandibular spaces are normal. Project Eng spaces appear normal. Infrahyoid Neck: Hypopharynx, larynx, [...] are clear of focal consolidation or mass. Slubber Runner (topogram) images: Noncontributory IMPRESSION IMPRESSION: Primary: 1: Expected post-treatment changes in the neck without evidence of recurrent disease in the primary site. Neck: 1: No evidence of abnormal lymph nodes. [email or web address] Transcribe Date/Time: Oct 26 2023 10:15A Dictated by: LIMA LIZ MD This examination was interpreted and the report reviewed and electronically signed by: (more content not included)... [facility] CT Neck W contrast IVOrdered By: [facility] Provider on 10-26-2023 [facility] metabolic 2000 panelOrdered By: Pauly Chan on 10-26-2023 Albumin [Mass/Vol] 4.3 g/dL 3.9 - 4.9 g/dL [facility] ALP [Catalytic activity/Vol] 75 U/L 38 - 113 U/L [facility] ALT [Catalytic activity/Vol] 10 U/L 10 - 54 U/L [facility] Anion gap [Moles/Vol] 8 mmol/L Low 9 - 18 mmol/L [facility] AST [Catalytic activity/Vol] 9 U/L Low 14 - 40 U/L [facility] Bilirubin [Mass/Vol] 0.5 mg/dL 0.2 - 1 .3 mg/dL [facility] Calcium [Mass/Vol] 9.9 mg/dL 8.5 - 10. 2 mg/dL [facility] Chloride [Moles/Vol] 106 mmol/L High 97 - 10 5 mmol/L [facility] CO2 [Moles/Vol] 27 mmol/L 22 - 30 mmol/L [facility] Creatinine [Mass/Vol] 1.01 mg/dL 0.73 - 1.22 mg/dL [facility] GFR/1.73 sq M.predicted among non-blacks MDRD (S/P/Bld) [Vol rate/Area] 85 mL/min/{1.73_m2} - PINF [facility] Comment on above: Estimated Glomerular Filtration [...] [Mass/Vol] 89 mg/dL 74 - 99 mg/dL [facility] Comment on above: The [place] [employer] Association (ADA) provides guidance for [...] Standards of Medical Care in Diabetes 2016, [place] [employer]. Diabetes Care. 2016.39(Suppl 1). Interpretation and review of laboratory results Abnormal [facility] Potassium [Moles/Vol] 4.0 mmol/L 3.7 - 5.1 mmol/L [facility] Protein [Mass/Vol] 6.4 g/dL 6.3 - 8.0 g/dL [facility] Sodium [Moles/Vol] 141 mmol/L 136 - 144 mmol/L [facility] Urea nitrogen [Mass/Vol] 16 mg/dL 9 - 24 mg/dL [facility] Eosinophils/100 WBC Auto (Bl d)on 10-26-2023 Eosinophils/100 WBC (Bld) 1.5 % [facility] Erythrocyte distribution wid th Auto (RBC) [Ratio]on 10-26-2023 Erythrocyte distribution width (RBC) [Ratio] 13.8 % 11.5-15.0 [facility] Hematocrit Auto (Bld) [Volum e fraction]on 10-26-2023 Hematocrit (Bld) [Volume fraction] 42.6 % 39.0-51.0 [facility] Hemoglobin [Mass/volume] in Bloodon 10-26-2023 Hemoglobin (Bld) [Mass/Vol] 14.4 g/dL 13.0-17.0 [facility] - Chemistry and C hemistry - challengeon 10-26-2023 Albumin [Mass/Vol] 4.3 g/dL 3.9-4.9 [facility] ALP [Catalytic activity/Vol] 75 U/L 38-113 [facility] ALT [Catalytic activity/Vol] 10 U/L 10-54 [facility] AST [Catalytic activity/Vol] 9 U/L 14-40 [facility] Bilirubin [Mass/Vol] 0.5 mg/dL 0.2-1.3 [facility] Calcium [Mass/Vol] 9.9 mg/dL 8.5-10.2 [facility] Chloride [Moles/Vol] 106 mmol/L 97-105 [facility] CO2 [Moles/Vol] 27 mmol/L 22-30 [facility] Creatinine [Mass/Vol] 1.01 mg/dL 0.73-1.22 [facility] Glucose [Mass/Vol] 89 mg/dL 74-99 [facility] Comment on above: The [place] Diab[employer] Association (ADA) provides guidance for [...] Standards of Medical Care in Diabetes 2016, [place] [employer]. Diabetes Care. 2016.39(Suppl 1). Potassium [Moles/Vol] 4.0 mmol/L 3.7-5.1 [facility] Sodium [Moles/Vol] 141 mmol/L 136-144 [facility] Urea nitrogen [Mass/Vol] 16 mg/dL 9 [facility] - Hematology and Cell countson 10-26-2023 Eosinophils (Bld) [#/Vol] 0.13 10*3/uL <0.46 [facility] Immature granulocytes (Bld) [#/Vol] 0.03 10*3/uL <0.10 [facility] Immature granulocytes/100 WBC (Bld) 0.3 % [facility] Leukocytes [#/volume] correc mone for nucleated erythrocytes in Blood by Automated counon 10-26-2023 WBC corrected for nucl RBC Auto (Bld) [#/Vol] 8.78 k/uL 3.70-11.00 [facility] Lymphocytes Auto (Bld) [#/Vo l]on 10-26-2023 Lymphocytes (Bld) [#/Vol] 2.18 10*3/uL 1.00-4.00 [facility] Lymphocytes/100 WBC Auto (Bl d)on 10-26-2023 Lymphocytes/100 WBC (Bld) 24.8 % [facility] MCH Auto (RBC) [Entitic mass ]on 10-26-2023 MCH (RBC) [Entitic mass] 32.0 pg 26.0-34.0 [facility] MCHC Auto (RBC) [Mass/Vol]on 10-26-2023 MCHC (RBC) [Mass/Vol] 33.8 g/dL 30.5-36.0 [facility] MCV Auto (RBC) [Entitic vol] on 10-26-2023 MCV (RBC) [Entitic vol] 94.7 fL 80.0-100.0 [facility] Monocytes Auto (Bld) [#/Vol] on 10-26-2023 Monocytes (Bld) [#/Vol] 0.60 10*3/uL <0.87 [facility] Monocytes/100 WBC Auto (Bld) on 10-26-2023 Monocytes/100 WBC (Bld) 6.8 % [facility] Neutrophils Auto (Bld) [#/Vo l]on 10-26-2023 Neutrophils (Bld) [#/Vol] 5.80 10*3/uL 1.45-7.50 [facility] Neutrophils/100 WBC Auto (Bl d)on 10-26-2023 Neutrophils/100 WBC (Bld) 66.1 % [facility] No Panel Informationon 10-25 Radiology Study observation (narrative) [facility] Estimated GFR (CKD-EPI) 85 mL/min/1.73m??? >=60 [facility] Comment on above: Estimated Glomerular Filtration [...] 10-26-2023 Nucleated RBC (Bld) [#/Vol] 10*3/uL <0.01 [facility] Nucleated erythrocytes [Pres ence] in Blood by Automated counton 10-26-2023 Nucleated RBC Auto Ql (Bld) 0.0 /100{WBC} [facility] Platelet mean volume Auto (B ld) [Entitic vol]on 10-26-2023 Platelet mean volume (Bld) [Entitic vol] 10.2 fL 9.0-12.7 [facility] Platelets Auto (Bld) [#/Vol] on 10-26-2023 Platelets (Bld) [#/Vol] 314 10*3/uL 150-400 [facility] Protein [Mass/volume] in Ser um or Plasmaon 10-26-2023 Protein [Mass/Vol] 6.4 g/dL 6.3-8.0 [facility] RBC Auto (Bld) [#/Vol]on RBC (Bld) [#/Vol] 4.50 10*6/uL 4.20-6.00 [facility] Serum or plasma anion gap de terminationon 10-26-2023 Anion gap [Moles/Vol] 8 mmol/L 9-18 [facility] Alanine aminotransferase [En zymatic activity/volume] in Serum or PlasmaOrdered By: Griselda Hastings on 10-09-2023 ALT [Catalytic activity/Vol] 8 U/L 7-52 [facility] Albumin [Mass/volume] in Ser um or Plasma by Bromocresol green (BCG) dye binding methoOrdered By: Griselda Hasitngs on 10-09-2023 Albumin BCG dye [Mass/Vol] 3.9 g/dL 3.5-5.7 [facility] Alkaline phosphatase [Enzyma tic activity/volume] in Serum or PlasmaOrdered By: Griselda Hastings on 10-09-2023 ALP [Catalytic activity/Vol] 59 U/L 34-104 [facility] Aspartate aminotransferase [ Enzymatic activity/volume] in Serum or PlasmaOrdered By: Griselda Hastings on 10-09-2023 AST [Catalytic activity/Vol] 7 U/L 13-39 [facility] Basophils Auto (Bld) [#/Vol] Ordered By: Griselda Hastings on 10-09-2023 Basophils (Bld) [#/Vol] 0.1 10*3/uL 0.0-0.2 [facility] Basophils/100 WBC Auto (Bld) Ordered By: Griselda Hastings on 10-09-2023 Basophils/100 WBC (Bld) 0.9 % . [facility] Bilirubin.total [Mass/volume ] in Serum or PlasmaOrdered By: Griselda Hastings on 10-09-2023 Bilirubin [Mass/Vol] 0.5 mg/dL 0.3-1.0 [facility] COVID-19 Detected/Not Detect edOrdered By: Griselda Hastings on 10-09-2023 SARS-CoV-2 (COVID-19) RNA JER+non-probe Ql (Nph) Not detected Not Detecte [facility] Comment on above: This is a duplicate RP2.1 COVID (PCR) result to be used for statistical tracking purpose only. Calcium [Mass/volume] in Ser um or PlasmaOrdered By: Griselda Hastings on 10-09-2023 Calcium [Mass/Vol] 9.5 mg/dL 8.6-10.3 [facility] Carbon dioxide, total [Moles /volume] in Serum or PlasmaOrdered By: Griselda Hastings on 10-09-2023 CO2 [Moles/Vol] 30.0 mmol/L 21.0-31.0 [facility] Chloride [Moles/volume] in S rica or PlasmaOrdered By: Griselda Hastings on 10-09-2023 Chloride [Moles/Vol] 103 mmol/L 98-107 [facility] Creatinine [Mass/volume] in Serum or PlasmaOrdered By: Griselda Hastings on 10-09-2023 Creatinine [Mass/Vol] 0.92 mg/dL 0.70-1.30 [facility] Eosinophils Auto (Bld) [#/Vo l]Ordered By: Griselda Hastings on 10-09-2023 Eosinophils (Bld) [#/Vol] 0.1 10*3/uL 0.0-0.45 [facility] Eosinophils/100 WBC Auto (Bl d)Ordered By: Griselda Hastings on 10-09-2023 Eosinophils/100 WBC (Bld) 1.0 % . [facility] Erythrocyte distribution wid th Auto (RBC) [Ratio]Ordered By: Griselda Hastings on 10-09-2023 Erythrocyte distribution width (RBC) [Ratio] 14.3 % 12.0-14.8 [facility] Globulin Calc (S) [Mass/Vol] Ordered By: Griselda Hastings on 10-09-2023 Globulin (S) [Mass/Vol] 2.0 g/dL [facility] Glucose [Mass/volume] in Ser um or PlasmaOrdered By: Griselda Hastings on 10-09-2023 Glucose [Mass/Vol] 84 mg/dL 70-100 [facility] Comment on above: ADA recommended refe rence rangeRandom Glucose Reference Range is dependent on time and content of last meal. Glucose of more than 200 mg/dL in a nonstressed, ambulatory subject supports the diagnosis of Diabetes Mellitus. Hematocrit Auto (Bld) [Volum e fraction]Ordered By: Griselda Hastings on 10-09-2023 Hematocrit (Bld) [Volume fraction] 41.9 % 38.8-50.0 [facility] Hemoglobin [Mass/volume] in BloodOrdered By: Griselda Hastings on 10-09-2023 Hemoglobin (Bld) [Mass/Vol] 14.4 g/dL 13.0-17.0 [facility] Leukocytes [#/volume] correc mone for nucleated erythrocytes in Blood by Automated counOrdered By: Griselda Hastings on 10-09-2023 WBC corrected for nucl RBC Auto (Bld) [#/Vol] 8.1 10*3/uL 4.1-10.5 [facility] Lymphocytes Auto (Bld) [#/Vo l]Ordered By: Griselda Hastings on 10-09-2023 Lymphocytes (Bld) [#/Vol] 2.7 10*3/uL 1.00-4.8 [facility] Lymphocytes/100 WBC Auto (Bl d)Ordered By: Griselda Hastings on 10-09-2023 Lymphocytes/100 WBC (Bld) 33.6 % . [facility] MCH Auto (RBC) [Entitic mass ]Ordered By: Griselda Hastings on 10-09-2023 MCH (RBC) [Entitic mass] 32.7 pg 27.5-35.2 [facility] MCHC Auto (RBC) [Mass/Vol]Or dered By: Griselda Hastings on 10-09-2023 MCHC (RBC) [Mass/Vol] 34.4 g/dL 32.5-35.6 [facility] MCV Auto (RBC) [Entitic vol] Ordered By: Griselda Hastings on 10-09-2023 MCV (RBC) [Entitic vol] 94.8 fL 83.5-101 [facility] Monocytes Auto (Bld) [#/Vol] Ordered By: Griselda Hastings on 10-09-2023 Monocytes (Bld) [#/Vol] 0.6 10*3/uL 0.0-0.8 [facility] Monocytes/100 WBC Auto (Bld) Ordered By: Griselda Hastings on 10-09-2023 Monocytes/100 WBC (Bld) 7.5 % . [facility] Neutrophils Auto (Bld) [#/Vo l]Ordered By: Griselda Hastings on 10-09-2023 Neutrophils (Bld) [#/Vol] 4.6 10*3/uL 1.8-7.7 [facility] Neutrophils/100 WBC Auto (Bl d)Ordered By: Griselda Hastings on 10-09-2023 Neutrophils/100 WBC (Bld) 57.0 % . [facility] No Panel InformationOrdered By: Griselda Hastings on 10-09-2023 Estimated GFR (CKD-EPI) > 60.0 mL/Min [facility] Creatinine Clearance (Chem N/A [facility] Nucleated erythrocytes [Pres ence] in Blood by Automated countOrdered By: Griselda Hastings on 10-09-2023 Nucleated RBC Auto Ql (Bld) 0.2 /100{WBC} 0-0.5 [facility] Platelet mean volume Auto (B ld) [Entitic vol]Ordered By: Griselda Hastings on 10-09-2023 Platelet mean volume (Bld) [Entitic vol] 8.3 fL 6.6-10.1 [facility] Platelets Auto (Bld) [#/Vol] Ordered By: Griselda Hastings on 10-09-2023 Platelets (Bld) [#/Vol] 349 10*3/uL 150-450 [facility] Potassium [Moles/volume] in Serum or PlasmaOrdered By: Griselda Hastings on 10-09-2023 Potassium [Moles/Vol] 4.5 mmol/L 3.5-5.1 [facility] Protein [Mass/volume] in Ser um or PlasmaOrdered By: Griselda Hastings on 10-09-2023 Protein [Mass/Vol] 5.9 g/dL 6.4-8.9 [facility] RBC Auto (Bld) [#/Vol]Ordere d By: Griselda Hastings on 10-09-2023 RBC (Bld) [#/Vol] 4.42 10*6/uL 3.90-5.60 [facility] Respiratory pathogens DNA an d RNA panel - Nasopharynx by JER with non-probe detectionOrdered By: Griselda Hastings on 10-09-2023 Respiratory pathogens DNA and RNA panel JER+non-probe (Nph) [facility] Serum or plasma albumin/glob ulin mass ratioOrdered By: Griselda Hastings on 10-09-2023 Albumin/Globulin [Mass ratio] 2.0 {ratio} [facility] Serum or plasma anion gap de terminationOrdered By: Griselda Hastings on 10-09-2023 Anion gap [Moles/Vol] 9.5 mmol/L 6.0-15.0 [facility] Sodium [Moles/volume] in Ser um or PlasmaOrdered By: Griselda Hastings on 10-09-2023 Sodium [Moles/Vol] 138 mmol/L 136-145 [facility] Urea nitrogen [Mass/volume] in Serum or PlasmaOrdered By: Griselda Hastings on 10-09-2023 Urea nitrogen [Mass/Vol] 14 mg/dL 7-25 [facility] WBC Auto (Bld) [#/Vol]Ordere d By: Griselda Hastings on 10-09-2023 WBC (Bld) [#/Vol] 8.1 10*3/uL 4.1-10.5 [facility] Study Interpretation of outs jeffrey studyon 09-19-2023 [...] Vitor Hickman MD 08/01/23 Final result Normal [facility] MRI CERVICAL SPINE WO CONTRA STon 07-18-2023 [...] Vitor Hickman MD 08/01/23 Final result Normal [facility] COVID + FLU Quick Testingon 07-02-2023 SARS-CoV-2 (COVID-19) RNA JER+probe Ql (Unsp spec) Negative [facility] Other COVID + FLU Quick Testing Negative [facility] Other Quick Strepon 07-02-2023 S. pyogenes Org specific cx Ql (Throat) Negative [facility] Other Quick Strep [facility] Other RSVon 07-02-2023 RSV Ag IA Ql (Unsp spec) Negative [facility] Other Creatinine [Mass/volume] in Serum or PlasmaOrdered By: Ruddy Harvey on 05-07-2023 Creatinine [Mass/Vol] 0.91 mg/dL 0.70-1.30 [facility] No Panel InformationOrdered By: Ruddy Harvey on 05-07-2023 Estimated GFR (CKD-EPI) > 60.0 mL/Min [facility] Creatinine Clearance (Chem 83.52 [facility] Urea nitrogen [Mass/volume] in Serum or PlasmaOrdered By: Ruddy Harvey on 05-07-2023 Urea nitrogen [Mass/Vol] 15 mg/dL 01-09 [facility] Creatinine (Bld) [Mass/Vol]O rdered By: Nikole Mota on 05-04-2023 Creatinine [Mass/Vol] 0.9 mg/dL 0.6-1.3 [facility] Comment on above: ER/ESD physician is notified/shown all ISTAT results.Critical values may be confirmed by laboratory testing ifdeemed necessary by ER attending doctor. No Panel InformationOrdered By: Nikole Mota on 05-04-2023 Bedside Estimated GFR (eGFR) > 60.0 [facility] Alanine aminotransferase [En zymatic activity/volume] in Serum or PlasmaOrdered By: Griselda Hastings on 03-30-2023 ALT [Catalytic activity/Vol] 10 U/L [facility] Albumin [Mass/volume] in Ser um or Plasma by Bromocresol green (BCG) dye binding methoOrdered By: Griselda Hastings on 03-30-2023 Albumin BCG dye [Mass/Vol] 4.2 g/dL 3.5-5.7 [facility] Alkaline phosphatase [Enzyma tic activity/volume] in Serum or PlasmaOrdered By: Griselda Hastings on 03-30-2023 ALP [Catalytic activity/Vol] 61 U/L 34-104 [facility] Aspartate aminotransferase [ Enzymatic activity/volume] in Serum or PlasmaOrdered By: Griselda Hastings on 03-30-2023 AST [Catalytic activity/Vol] 8 U/L 13-39 [facility] Basophils Auto (Bld) [#/Vol] Ordered By: Griselda Hastings on 03-30-2023 Basophils (Bld) [#/Vol] 0.1 10*3/uL 0.0-0.2 [facility] Basophils/100 WBC Auto (Bld) Ordered By: Griselda Hastings on 03-30-2023 Basophils/100 WBC (Bld) 0.8 % . [facility] Bilirubin.total [Mass/volume ] in Serum or PlasmaOrdered By: Griselda Hastings on 03-30-2023 Bilirubin [Mass/Vol] 0.9 mg/dL 0.3-1.0 [facility] Calcium [Mass/volume] in Ser um or PlasmaOrdered By: Griselda Hastings on 03-30-2023 Calcium [Mass/Vol] 9.1 mg/dL 8.6-10.3 [facility] Carbon dioxide, total [Moles /volume] in Serum or PlasmaOrdered By: Griselda Hastings on 03-30-2023 CO2 [Moles/Vol] 27.0 mmol/L 21.0-31.0 [facility] Chloride [Moles/volume] in S rica or PlasmaOrdered By: Griselda Hastings on 03-30-2023 Chloride [Moles/Vol] 103 mmol/L 98-107 [facility] Cholesterol [Mass/volume] in Serum or PlasmaOrdered By: Griselda Hastings on 03-30-2023 Cholesterol [Mass/Vol] 224 mg/dL 140-200 [facility] Comment on above: Chol less than 200 m g/dl low riskChol 201-239 mg/dl borderline riskChol 240 mg/dl and greater high risk Cholesterol in LDL Calc [Mas s/Vol]Ordered By: Griselda Hastings on 03-30-2023 Cholesterol in LDL [Mass/Vol] 148 mg/dL 0-100 [facility] Comment on above: LDL ATP III CLASSIFI CATIONLDL less than 100 mg/dL OptimalLDL 100-129 mg/dL Near or above optimalLDL 130-159 mg/dL Borderline highLDL 160-189 mg/dL HighLDL greater than 189 mg/dL Very high Cholesterol in VLDL Calc [Ma ss/Vol]Ordered By: Griselda Hastings on 03-30-2023 Cholesterol in VLDL [Mass/Vol] 31 mg/dL [facility] Creatinine [Mass/volume] in Serum or PlasmaOrdered By: Griselda Hastings on 03-30-2023 Creatinine [Mass/Vol] 0.82 mg/dL 0.70-1.30 [facility] Eosinophils Auto (Bld) [#/Vo l]Ordered By: Griselda Hastings on 03-30-2023 Eosinophils (Bld) [#/Vol] 0.1 10*3/uL 0.0-0.45 [facility] Eosinophils/100 WBC Auto (Bl d)Ordered By: Griselda Hastings on 03-30-2023 Eosinophils/100 WBC (Bld) 0.6 % . [facility] Erythrocyte distribution wid th Auto (RBC) [Ratio]Ordered By: Griselda Hastings on 03-30-2023 Erythrocyte distribution width (RBC) [Ratio] 14.1 % 12.0-14.8 [facility] Globulin Calc (S) [Mass/Vol] Ordered By: Griselda Hastings on 03-30-2023 Globulin (S) [Mass/Vol] 1.9 g/dL [facility] Glucose [Mass/volume] in Ser um or PlasmaOrdered By: Griselda Hastings on 03-30-2023 Glucose [Mass/Vol] 83 mg/dL 70-100 [facility] Comment on above: ADA recommended refe rence rangeRandom Glucose Reference Range is dependent on time and content of last meal. Glucose of more than 200 mg/dL in a nonstressed, ambulatory subject supports the diagnosis of Diabetes Mellitus. Hematocrit Auto (Bld) [Volum e fraction]Ordered By: Griselda Hastings on 03-30-2023 Hematocrit (Bld) [Volume fraction] 41.4 % 38.8-50.0 [facility] Hemoglobin [Mass/volume] in BloodOrdered By: Griselda Hastings on 03-30-2023 Hemoglobin (Bld) [Mass/Vol] 14.4 g/dL 13.0-17.0 [facility] Leukocytes [#/volume] correc mone for nucleated erythrocytes in Blood by Automated counOrdered By: Griselda Hastings on 03-30-2023 WBC corrected for nucl RBC Auto (Bld) [#/Vol] 10.0 10*3/uL 4.1-10.5 [facility] Lymphocytes Auto (Bld) [#/Vo l]Ordered By: Griselda Hastings on 03-30-2023 Lymphocytes (Bld) [#/Vol] 1.7 10*3/uL 1.00-4.8 [facility] Lymphocytes/100 WBC Auto (Bl d)Ordered By: Griselda Hastings on 03-30-2023 Lymphocytes/100 WBC (Bld) 16.8 % . [facility] MCH Auto (RBC) [Entitic mass ]Ordered By: Griselda Hastings on 03-30-2023 MCH (RBC) [Entitic mass] 33.9 pg 27.5-35.2 [facility] MCHC Auto (RBC) [Mass/Vol]Or dered By: Griselda Hastings on 03-30-2023 MCHC (RBC) [Mass/Vol] 34.9 g/dL 32.5-35.6 [facility] MCV Auto (RBC) [Entitic vol] Ordered By: Griselda Hastings on 03-30-2023 MCV (RBC) [Entitic vol] 97.1 fL 83.5-101 [facility] Monocytes Auto (Bld) [#/Vol] Ordered By: Griselda Hastings on 03-30-2023 Monocytes (Bld) [#/Vol] 0.8 10*3/uL 0.0-0.8 [facility] Monocytes/100 WBC Auto (Bld) Ordered By: Griselda Hastings on 03-30-2023 Monocytes/100 WBC (Bld) 8.0 % . [facility] Neutrophils Auto (Bld) [#/Vo l]Ordered By: Griselda Hastings on 03-30-2023 Neutrophils (Bld) [#/Vol] 7.3 10*3/uL 1.8-7.7 [facility] Neutrophils/100 WBC Auto (Bl d)Ordered By: Griselda Hastings on 03-30-2023 Neutrophils/100 WBC (Bld) 73.8 % . [facility] No Panel InformationOrdered By: Griselda Hastings on 03-30-2023 Estimated GFR (CKD-EPI) > 60.0 mL/Min [facility] Creatinine Clearance (Chem N/A [facility] Nucleated erythrocytes [Pres ence] in Blood by Automated countOrdered By: Griselda Hastings on 03-30-2023 Nucleated RBC Auto Ql (Bld) 0.1 /100{WBC} 0-0.5 [facility] Platelet mean volume Auto (B ld) [Entitic vol]Ordered By: Griselda Hastings on 03-30-2023 Platelet mean volume (Bld) [Entitic vol] 9.2 fL 6.6-10.1 [facility] Platelets Auto (Bld) [#/Vol] Ordered By: Griselda Hastings on 03-30-2023 Platelets (Bld) [#/Vol] 221 10*3/uL 150-450 [facility] Potassium [Moles/volume] in Serum or PlasmaOrdered By: Griselda Hastings on 03-30-2023 Potassium [Moles/Vol] 4.1 mmol/L 3.5-5.1 [facility] Protein [Mass/volume] in Ser um or PlasmaOrdered By: Griselda Hastings on 03-30-2023 Protein [Mass/Vol] 6.1 g/dL 6.4-8.9 [facility] RBC Auto (Bld) [#/Vol]Ordere d By: Griselda Hastings on 03-30-2023 RBC (Bld) [#/Vol] 4.26 10*6/uL 3.90-5.60 [facility] Serum or plasma albumin/glob ulin mass ratioOrdered By: Griselda Hastings on 03-30-2023 Albumin/Globulin [Mass ratio] 2.2 {ratio} [facility] Serum or plasma anion gap de terminationOrdered By: Griselda Hastings on 03-30-2023 Anion gap [Moles/Vol] 12.1 mmol/L 6.0-15.0 [facility] Serum or plasma high density lipoprotein (HDL) cholesterol measurementOrdered By: Griselda Hastings on 03-30-2023 Cholesterol in HDL [Mass/Vol] 44 mg/dL 23-92 [facility] Comment on above: HDL CHOL ATP-III CLA SSIFICATION Cardiovascular RiskHDL > or equal to 60 mg/dL LOWHDL < 40 mg/dL HIGH Serum or plasma total choles terol/high density lipoprotein (HDL) cholesterol mass ratOrdered By: Griselda Hastings on 03-30-2023 Cholesterol.total/Chol esterol in HDL [Mass ratio] 5.1 {ratio} <5.0 [facility] Sodium [Moles/volume] in Ser um or PlasmaOrdered By: Griselda Hastings on 03-30-2023 Sodium [Moles/Vol] 138 mmol/L 136-145 [facility] Thyrotropin [Units/volume] i n Serum or PlasmaOrdered By: Griselda Hastings on 03-30-2023 TSH Qn 0.93 m[IU]/L 0.45-5.33 [facility] Triglyceride [Mass/volume] i n Serum or PlasmaOrdered By: Griselda Hastings on 03-30-2023 Triglyceride [Mass/Vol] 159 mg/dL 0-149 [facility] Comment on above: TRIG ATP III CLASSIF ICATIONTRIG less than 150 mg/dL NormalTRIG 150-199 mg/dL Borderline highTRIG 200-500 mg/dL High TRIG greater than 500 mg/dL Very highStandard traceable to the Center for Disease Conrtrol and Prevention (CDC) test method. Urea nitrogen [Mass/volume] in Serum or PlasmaOrdered By: Griselda Hastings on 03-30-2023 Urea nitrogen [Mass/Vol] 10 mg/dL 7-25 [facility] WBC Auto (Bld) [#/Vol]Ordere d By: Griselda Hastings on 03-30-2023 WBC (Bld) [#/Vol] 10.0 10*3/uL 4.1-10.5 [facility] COVID-19 SOFIAOrdered By: Brandyn Gaytan on 02-26-2023 SARS-CoV+SARS-CoV-2 (COVID-19) Ag IA.rapid Ql (Resp) Negative Negative [facility] Comment on above: This is a duplicate Anna SARS Antigen (JAMILA) result to be used for statistical tracking purpose only. No Panel InformationOrdered By: Daniel Mimsmond on 02-26-2023 SARS Antigen (LFIA) [facility] SARS Antigen (LFIA) [facility] No Panel Informationon 12-28 XR Pain Management C ase (Reference Range: not available) *FINAL Date of Service: 12/28/2022 08:49 Adm #: [id number] Reading Dr:RICARDO CAPPS Signoff Dr: RICARDO CAPPS PROCEDURE: PAIN MANAGEMENT CASE - BXR 0999 REASON FOR EXAM: SPONDYLOSIS W/O MYELOPATHY OR RADICULOPATHY, CERVICAL REGION RESULT: Patient Name: SHANTEL MELENDEZ STUDY: PAIN MANAGEMENT CASE INDICATION: SPONDYLOSIS W/O MYELOPATHY OR RADICULOPATHY, CERVICAL REGION COMPARISON: None. ACCESSION NUMBER(S): [id number] ORDERING CLINICIAN: LIMA JOSEPH TECHNIQUE: See below: FINDINGS: Fluoroscopy was provided during therapeutic puncture in the region of the cervical spine for pain management. Total fluoroscopy time: 14.56mgy, images: 4. IMPRESSION: Fluoroscopy for pain management. Dictation workstation: [id number] Original Interpreting Physician: RICARDO CAPPS M.D. Original Transcribed by/Date: MMODAL Dec 28 2022 6:14A Original Electronically Signed by/Date: RICARDO CAPPS M.D. Dec 28 2022 9:04A Addendum Interpreting Physician: Addendum Transcribed by/Date: NO ADDENDUM Addendum Electronically Signed by/Date: [facility] [place] Quick Strepon 12-05-2022 S. pyogenes Org specific cx Ql (Throat) Negative [facility] Other Quick Strep [facility] Other CT Chest W contrast Tristin IMPRESSION: [...] any questions regarding this interpretation, please call [phone]. If you are unable to reach us at the number above, please feel free to contact [facility] [phone][facility] DIVISION OF RADIOLOGY * * *Final Report* * * DATE OF EXAM: Oct 27 2022 11:44AM [facility] 0539 - CT CHEST W [...] No abnormality in the imaged upper abdomen. Slubber Runner (topogram) images: No additional findings. DIVISION OF RADIOLOGY Provider, [facility] - 10/30/2022 * * *Final Report* * * DATE OF EXAM: Oct 27 2022 11:44AM [facility] 0539 - CT CHEST W [...] No abnormality in the imaged upper abdomen. Slubber Runner (topogram) images: No additional findings. IMPRESSION IMPRESSION: Stable CT of the chest. Unchanged appearance of left-sided nodular opacities. No new or enlarging nodules are visualized. Transcribe Date/Time: Oct 30 2022 2:17P Dictated by: EFRA PABLO MD This examination was interpreted and the report reviewed and electronically signed by: EFRA PABLO MD on May 15 2023 2:37PM EST Thank you for allowing us to participate in the care of your patient. Should there be any questions regarding this interpretation, please call [phone]. If you are unable to reach us at the number above, please feel free to contact [facility] at [phone]. [facility] CBC W Auto Differential pane l (Bld)on 10-27-2022 Basophils (Bld) [#/Vol] 0.03 10*3/[facility]L [facility] Basophils/100 WBC (Bld) 0.3 % [facility] Differential cell count method Nom (Bld) Auto [facility] Eosinophils (Bld) [#/Vol] 0.06 10*3/uL [facility] Eosinophils/100 WBC (Bld) 0.7 % [facility] Erythrocyte distribution width (RBC) [Ratio] 14.0 % 11.5 - 15.0 % [facility] Hematocrit (Bld) [Volume fraction] 43.5 % 39.0 - 51.0 % [facility] Hemoglobin (Bld) [Mass/Vol] 14.5 g/dL 13.0 - 17.0 g/dL [facility] Immature granulocytes (Bld) [#/Vol] 0.03 10*3/uL [facility] Immature granulocytes/100 WBC (Bld) 0.3 % [facility] Lymphocytes (Bld) [#/Vol] 2.00 10*3/uL [facility] Lymphocytes/100 WBC (Bld) 21.9 % [facility] MCH (RBC) [Entitic mass] 31.3 pg 26.0 - 34.0 pg [facility] MCHC (RBC) [Mass/Vol] 33.3 g/dL 30.5 - 36.0 g/dL [facility] MCV (RBC) [Entitic vol] 93.8 fL 80.0 - 100.0 fL [facility] Monocytes (Bld) [#/Vol] 0.53 10*3/uL [facility] Monocytes/100 WBC (Bld) 5.8 % [facility] Neutrophils (Bld) [#/Vol] 6.47 10*3/uL [facility] Neutrophils/100 WBC (Bld) 71.0 % [facility]Bld) [#/Vol] [facility] Nucleated RBC/100 WBC (Bld) [Ratio] 0.0 % /100 WBC [facility] Platelet mean volume (Bld) [Entitic vol] 10.8 fL 9.0 - 12.7 fL [facility] Platelets (Bld) [#/Vol] 253 10*3/uL [facility] RBC (Bld) [#/Vol] 4.64 10*6/uL 4.20 - 6.00 m/uL [facility] WBC (Bld) [#/Vol] 9.12 10*3/uL [facility] CT Neck W contrast Tristin 05- IMPRESSION: Primary NIRADS Category: 1. Expected post-treatment changes in the neck without evidence of recurrent disease in the primary site. Neck NIRADS Category: 1. No evidence of abnormal lymph nodes. [email or web address] Transcribe Date/Time: Oct 27 2022 11:56A Dictated by: KALPANA HAMPTON MD This examination was interpreted and the report reviewed and electronically signed by: KALPANA HAMPTON MD on Oct 27 2022 12:14PM EST Thank you for allowing us to participate in the care of your patient. Should there be any questions regarding this interpretation, please call [phone]. If you are unable to reach us at the number above, please feel free to contact [facility] eRadiology at [phone]. DIVISION OF RADIOLOGY * * *Final Report* * * DATE OF EXAM: Oct 27 2022 11:28AM 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 Parotid and submandibular spaces are normal. Project Eng spaces appear normal. Infrahyoid Neck: Hypopharynx, larynx, [...] consolidation or mass. DIVISION OF RADIOLOGY Provider, [facility] - 10/27/2022 * * *Final Report* * * DATE OF EXAM: Oct 27 2022 11:28AM 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 Parotid and submandibular spaces are normal. Project Eng spaces appear normal. Infrahyoid Neck: Hypopharynx, larynx, [...] evidence of abnormal lymph nodes. [email or web address] Transcribe Date/Time: Oct 27 2022 11:56A Dictated by: KALPANA HAMPTON MD This examination was interpreted and the report reviewed and electronically signed by: KALPANA HAMPTON MD on Oct 27 2022 12:14PM EST Thank you for allowing us to participate in the care of your patient. Should there be any questions regarding this interpretation, please call [phone]. If you are unable to reach us at the number above, please feel free to contact [facility] eRadiology at [phone]. [facility] CT Neck W contrast IVOrdered By: [facility]cf Provider on 10-27-2022 [facility] Comprehensive metabolic 2000 panelOrdered By: Kelly Goodson on 10-27-2022 Albumin [Mass/Vol] 4.3 g/dL 3.9 - 4.9 g/dL [facility] ALP [Catalytic activity/Vol] 89 U/L 38 - 113 U/L [facility] ALT [Catalytic activity/Vol] 7 U/L Low 10 - 54 U/L [facility] Anion gap [Moles/Vol] 10 mmol/L 9 - 18 mmol/L [facility] AST [Catalytic activity/Vol] 8 U/L Low 14 - 40 U/L [facility] Bilirubin [Mass/Vol] 0.3 mg/dL 0.2 - 1 .3 mg/dL [facility] Calcium [Mass/Vol] 9.6 mg/dL 8.5 - 10. 2 mg/dL [facility] Chloride [Moles/Vol] 104 mmol/L 97 - 10 5 mmol/L [facility] CO2 [Moles/Vol] 27 mmol/L 22 - 30 mmol/L [facility] Creatinine [Mass/Vol] 0.93 mg/dL 0.73 - 1.22 mg/dL [facility] GFR/1.73 sq M.predicted among non-blacks MDRD (S/P/Bld) [Vol rate/Area] 95 mL/min/{1.73_m2} - PINF [facility] Comment on above: Estimated Glomerular Filtration [...] [Mass/Vol] 98 mg/dL 74 - 99 mg/dL [facility] Comment on above: The [place] Diab[employer] s Association (ADA) provides guidance for [...] Standards of Medical Care in Diabetes 2016, [place] [employer]. Diabetes Care. 2016.39(Suppl 1). Interpretation and review of laboratory results Abnormal [facility] Potassium [Moles/Vol] 4.5 mmol/L 3.7 - 5.1 mmol/L [facility] Protein [Mass/Vol] 6.6 g/dL 6.3 - 8.0 g/dL [facility] Sodium [Moles/Vol] 141 mmol/L 136 - 144 mmol/L [facility] Urea nitrogen [Mass/Vol] 12 mg/dL 9 - 24 mg/dL [facility] No Panel Informationon 10-27 Radiology Study observation (narrative) [facility] Alanine aminotransferase [En zymatic activity/volume] in Serum or PlasmaOrdered By: Griselda Hastings on 10-24-2022 ALT [Catalytic activity/Vol] 7 U/L 7-52 [facility] Albumin [Mass/volume] in Ser um or Plasma by Bromocresol green (BCG) dye binding methoOrdered By: Griselda Hastings on 10-24-2022 Albumin BCG dye [Mass/Vol] 4.2 g/dL 3.5-5.7 [facility] Alkaline phosphatase [Enzyma tic activity/volume] in Serum or PlasmaOrdered By: Grisedla Hastings on 10-24-2022 ALP [Catalytic activity/Vol] 76 U/L 34-104 [facility] Aspartate aminotransferase [ Enzymatic activity/volume] in Serum or PlasmaOrdered By: Griselda Hastings on 10-24-2022 AST [Catalytic activity/Vol] 10 U/L 13-39 [facility] Basophils Auto (Bld) [#/Vol] Ordered By: Griselda Hastings on 10-24-2022 Basophils (Bld) [#/Vol] 0.0 10*3/uL 0.0-0.2 [facility] Basophils/100 WBC Auto (Bld) Ordered By: Griselda Hastings on 10-24-2022 Basophils/100 WBC (Bld) 0.9 % . [facility] Bilirubin.total [Mass/volume ] in Serum or PlasmaOrdered By: Griselda Hastings on 10-24-2022 Bilirubin [Mass/Vol] 0.4 mg/dL 0.3-1.0 [facility] Calcium [Mass/volume] in Ser um or PlasmaOrdered By: Griselda Hastings on 10-24-2022 Calcium [Mass/Vol] 9.1 mg/dL 8.6-10.3 [facility] Carbon dioxide, total [Moles /volume] in Serum or PlasmaOrdered By: Griselda Hastings on 10-24-2022 CO2 [Moles/Vol] 28.3 mmol/L 21.0-31.0 [facility] Chloride [Moles/volume] in [place] r[place] or PlasmaOrdered By: Griselda Hastings on 10-24-2022 Chloride [Moles/Vol] 105 mmol/L 98-107 [facility] Cholesterol [Mass/volume] in Serum or PlasmaOrdered By: Griselda Hastings on 10-24-2022 Cholesterol [Mass/Vol] 240 mg/dL 140-200 [facility] Comment on above: Chol less than 200 m g/dl low riskChol 201-239 mg/dl borderline riskChol 240 mg/dl and greater high risk Cholesterol in LDL Calc [Mas s/Vol]Ordered By: Griselda Hastings on 10-24-2022 Cholesterol in LDL [Mass/Vol] 169 mg/dL 0-100 [facility] Comment on above: LDL ATP III CLASSIFI CATIONLDL less than 100 mg/dL OptimalLDL 100-129 mg/dL Near or above optimalLDL 130-159 mg/dL Borderline highLDL 160-189 mg/dL HighLDL greater than 189 mg/dL Very high Cholesterol in VLDL Calc [Ma ss/Vol]Ordered By: Griselda Hastings on 10-24-2022 Cholesterol in VLDL [Mass/Vol] 35 mg/dL [facility] Creatinine [Mass/volume] in Serum or PlasmaOrdered By: Griselda Hastings on 10-24-2022 Creatinine [Mass/Vol] 0.88 mg/dL 0.70-1.30 [facility] Eosinophils Auto (Bld) [#/Vo l]Ordered By: Griselda Hastings on 10-24-2022 Eosinophils (Bld) [#/Vol] 0.1 10*3/uL 0.0-0.45 [facility] Eosinophils/100 WBC Auto (Bl d)Ordered By: Griselda Hastings on 10-24-2022 Eosinophils/100 WBC (Bld) 2.0 % . [facility] Erythrocyte distribution wid th Auto (RBC) [Ratio]Ordered By: Griselda Hastings on 10-24-2022 Erythrocyte distribution width (RBC) [Ratio] 14.7 % 12.0-14.8 [facility] Globulin Calc (S) [Mass/Vol] Ordered By: Griselda Hastings on 10-24-2022 Globulin (S) [Mass/Vol] 2.1 g/dL [facility] Glucose [Mass/volume] in Ser um or PlasmaOrdered By: Griselda Hastings on 10-24-2022 Glucose [Mass/Vol] 82 mg/dL 70-100 [facility] Comment on above: ADA recommended refe rence rangeRandom Glucose Reference Range is dependent on time and content of last meal. Glucose of more than 200 mg/dL in a nonstressed, ambulatory subject supports the diagnosis of Diabetes Mellitus. Hematocrit Auto (Bld) [Volum e fraction]Ordered By: Griselda Hastings on 10-24-2022 Hematocrit (Bld) [Volume fraction] 43.4 % 38.8-50.0 [facility] Hemoglobin [Mass/volume] in BloodOrdered By: Griselda Hastings on 10-24-2022 Hemoglobin (Bld) [Mass/Vol] 14.5 g/dL 13.0-17.0 [facility] Leukocytes [#/volume] correc mone for nucleated erythrocytes in Blood by Automated counOrdered By: Griselda Hastings on 10-24-2022 WBC corrected for nucl RBC Auto (Bld) [#/Vol] 5.0 10*3/uL 4.1-10.5 [facility] Lymphocytes Auto (Bld) [#/Vo l]Ordered By: Griselda Hastings on 10-24-2022 Lymphocytes (Bld) [#/Vol] 2.0 10*3/uL 1.00-4.8 [facility] Lymphocytes/100 WBC Auto (Bl d)Ordered By: Griselda Hastings on 10-24-2022 Lymphocytes/100 WBC (Bld) 39.8 % . [facility] MCH Auto (RBC) [Entitic mass ]Ordered By: Griselda Hastings on 10-24-2022 MCH (RBC) [Entitic mass] 31.5 pg 27.5-35.2 [facility] MCHC Auto (RBC) [Mass/Vol]Or dered By: Griselda Hastings on 10-24-2022 MCHC (RBC) [Mass/Vol] 33.5 g/dL 32.5-35.6 [facility] MCV Auto (RBC) [Entitic vol] Ordered By: Griselda Hastings on 10-24-2022 MCV (RBC) [Entitic vol] 94.0 fL 83.5-101 [facility] Monocytes Auto (Bld) [#/Vol] Ordered By: Griselda Hastings on 10-24-2022 Monocytes (Bld) [#/Vol] 0.3 10*3/uL 0.0-0.8 [facility] Monocytes/100 WBC Auto (Bld) Ordered By: Griselda Hastings on 10-24-2022 Monocytes/100 WBC (Bld) 5.4 % . [facility] Neutrophils Auto (Bld) [#/Vo l]Ordered By: Griselda Hastings on 10-24-2022 Neutrophils (Bld) [#/Vol] 2.6 10*3/uL 1.8-7.7 [facility] Neutrophils/100 WBC Auto (Bl d)Ordered By: Griselda Hastings on 10-24-2022 Neutrophils/100 WBC (Bld) 51.9 % . [facility] No Panel InformationOrdered By: Griselda Hastings on 10-24-2022 Estimated GFR (CKD-EPI) > 60.0 mL/Min [facility] Creatinine Clearance (Chem N/A [facility] Nucleated erythrocytes [Pres ence] in Blood by Automated countOrdered By: Griselda Hastings on 10-24-2022 Nucleated RBC Auto Ql (Bld) 0.1 /100{WBC} 0-0.5 [facility] Platelet mean volume Auto (B ld) [Entitic vol]Ordered By: Griselda Hastings on 10-24-2022 Platelet mean volume (Bld) [Entitic vol] 9.6 fL 6.6-10.1 [facility] Platelets Auto (Bld) [#/Vol] Ordered By: Griselda Hastings on 10-24-2022 Platelets (Bld) [#/Vol] 247 10*3/uL 150-450 [facility] Potassium [Moles/volume] in Serum or PlasmaOrdered By: Griselda Hastings on 10-24-2022 Potassium [Moles/Vol] 4.0 mmol/L 3.5-5.1 [facility] Prostate specific Ag [Mass/v olume] in Serum or PlasmaOrdered By: Griselda Hastings on 10-24-2022 Prostate specific Ag [Mass/Vol] 0.370 ng/mL 0.000-4.00 0 [facility] Protein [Mass/volume] in Ser um or PlasmaOrdered By: Griselda Hastings on 10-24-2022 Protein [Mass/Vol] 6.3 g/dL 6.4-8.9 [facility] RBC Auto (Bld) [#/Vol]Ordere d By: Griselda Hastings on 10-24-2022 RBC (Bld) [#/Vol] 4.61 10*6/uL 3.90-5.60 [facility] Serum or plasma albumin/glob ulin mass ratioOrdered By: Griselda Hastings on 10-24-2022 Albumin/Globulin [Mass ratio] 2.0 {ratio} [facility] Serum or plasma anion gap de terminationOrdered By: Griselda Hastings on 10-24-2022 Anion gap [Moles/Vol] 11.7 mmol[facility]L [facility]0-[facility] Serum or plasma high density lipoprotein (HDL) cholesterol measurementOrdered By: Griselda Hastings on 10-24-2022 Cholesterol in HDL [Mass/Vol] 36 mg/dL 29- [facility] Comment on above: HDL CHOL ATP-III CLA SSIFICATION Cardiovascular RiskHDL > or equal to 60 mg/dL LOWHDL < 40 mg/dL HIGH Serum or plasma total choles terol/high density lipoprotein (HDL) cholesterol mass ratOrdered By: Griselda Hastings on 10-24-2022 Cholesterol.total/Chol esterol in HDL [Mass ratio] 6.7 {ratio} <5.0 [facility] Sodium [Moles/volume] in Ser um or PlasmaOrdered By: Griselda Hastings on 10-24-2022 Sodium [Moles/Vol] 141 mmol/L 136-145 [facility] Thyrotropin [Units/volume] i n Serum or PlasmaOrdered By: Griselda Hastings on 10-24-2022 TSH Qn 1.26 m[IU]/L 0.45-5.33 [facility] Triglyceride [Mass/volume] i n Serum or PlasmaOrdered By: Griselda Hastings on 10-24-2022 Triglyceride [Mass/Vol] 175 mg/dL 0-149 [facility] Comment on above: TRIG ATP III CLASSIF ICATIONTRIG less than 150 mg/dL NormalTRIG 150-199 mg/dL Borderline highTRIG 200-500 mg/dL High TRIG greater than 500 mg/dL Very highStandard traceable to the Center for Disease Conrtrol and Prevention (CDC) test method. Urea nitrogen [Mass/volume] in Serum or PlasmaOrdered By: Griselda Hastings on 10-24-2022 Urea nitrogen [Mass/Vol] 15 mg/dL 7- [facility] WBC Auto (Bld) [#/Vol]Ordere d By: Griselda Hastings on 10-24-2022 WBC (Bld) [#/Vol] 5.0 10*3/uL 4.1-10.5 [facility] BRIEF OP NOTon 09-28-2022 BRIEF OP NOT HNO ID: [id number] Author: Flores Cat APRN.CNP Service: Interventional Radiology Author Type: Nurse Practitioner Type: Brief Op Note Filed: 09/28/2022 3:14 PM Note Text: BRIEF OPERATIVE / PROCEDURE NOTE LOG ID: [id number] SURGERY/PROCEDURE DATE: 09/28/2022 INCISION/PROCEDURE START TIME: 1:58 PM INCISION CLOSE/PROCEDURE END TIME: 2:27 PM SURGEON(S)/PROCEDURALIST( S) AND LOCKER ATTENDANT(S): Surgeon(s) and Role: * Flores Cat APRN.PEST CONTROLLER - Primary No Additional Staff SURGERY/PROCEDURE(S): LP [...] DIAGNOSIS: Same as Preop SIGNATURE: Flores Cat APRN.CNP PATIENT NAME: Shantel Melendez DATE: September 28, 2022 TIME: 3:10 PM [facility] IR LUMBAR PUNCTURE DIAGon IR LUMBAR PUNCTURE DIAG * * *Final Report* * * DATE OF EXAM: Sep 28 2022 2:41PM [facility] 7594 - IR LUMBAR PUNCTURE DIAG [...] guidance was performed in conjunction with the stress test technician. Plane A, Air Kerma: 20.0 mGy Dose Area Product (DAP): 75738.1 mGy*cm2 Fluoro time: 3:54 min: sec Post-Procedure: [...] procedure was performed by: Flores Cat APRN.CNP Hide Puller: HARPER Transcribe Date/Time: Sep 28 2022 3:15P Dictated by : FLORES CAT CNP This examination was interpreted and the report reviewed and electronically signed by: FLORES CAT CNP on Sep 28 2022 3:22PM EST [id number] [facility] NURSING PROGon 09-28-2022 NURSING PROG HNO ID: [id number] Author: Court Magana RN Service: Nursing Author [...] Care Provider Electronically Signed By: Court Magana [facility] MRI BRAIN WO/W IVCONon 09-22 [facility] COVID + FLU Quick Testingon 08-01-2022 SARS-CoV-2 (COVID-19) RNA JER+probe Ql (Unsp spec) Negative [facility] Other COVID + FLU Quick Testing neagative [facility] Other COVID + FLU Quick Testing Negative [facility] Other RSVon 08-01-2022 RSV Ag IA Ql (Unsp spec) Positive [facility] [place] Other Cerebrospinal fluid post-valdez trifugation appearance determinationOrdered By: Oziel Cadena on 07-17-2022 Appearance (Spun CSF) Colorless Colorless [facility] Cerebrospinal fluid sample t ube volume measurementOrdered By: Oziel Cadena on 07-17-2022 Specimen volume (CSF) 22.0 mL [facility] Color CSFOrdered By: Oziel Cadena on 07-17-2022 Color (CSF) Colorless Colorless [facility] Manual cerebrospinal fluid e rythrocytes count (number/volume)Ordered By: Oziel Cadena on 07-17-2022 RBC Manual cnt (CSF) [#/Vol] 0 /uL [facility] Comment on above: The reference interv al and other method performance specifications have not been established for this body fluid. The test result must be integrated into the clinical context for interpretation. No Panel InformationOrdered By: Oziel Cadena on 07-17-2022 CSF Appearance Clear Clear [facility] CSF Tube Number Tube number: 1 [facility] Nucleated cells [#/volume] i n Cerebral spinal fluid by Manual countOrdered By: Oziel Cadena on 07-17-2022 Nucleated cells Manual cnt (CSF) [#/Vol] 0.003 10*3/uL 0-5 [facility] Activated partial thrombopla stin time (aPTT) in platelet poor plasma by coagulation aOrdered By: Loi Wong on 04-16-2022 aPTT Coag (PPP) [Time] 32.8 s 25.1-36.5 [facility] Basophils Auto (Bld) [#/Vol] Ordered By: oLi Wong on 04-16-2022 Basophils (Bld) [#/Vol] 0.1 10*3/uL 0.0-0.2 [facility] Basophils/100 WBC Auto (Bld) Ordered By: Loi Wong on 04-16-2022 Basophils/100 WBC (Bld) 1.2 % . [facility] Creatine kinase [Enzymatic a ctivity/volume] in Serum or PlasmaOrdered By: Loi Wong on 04-16-2022 CK [Catalytic activity/Vol] 69 U/L 22-269 [facility] Creatinine and Glomerular fi ltration rate.predicted panel (S/P/Bld)Ordered By: Loi Wong on 04-16-2022 Creatinine [Mass/Vol] 0.97 mg/dL 0.64-1.27 [facility] Eosinophils Auto (Bld) [#/Vo l]Ordered By: Loi Wong on 04-16-2022 Eosinophils (Bld) [#/Vol] 0.1 10*3/uL 0.0-0.45 [facility] Eosinophils/100 WBC Auto (Bl d)Ordered By: Loi Wong on 04-16-2022 Eosinophils/100 WBC (Bld) 1.2 % . [facility] Erythrocyte distribution wid th Auto (RBC) [Ratio]Ordered By: Loi Wong on 04-16-2022 Erythrocyte distribution width (RBC) [Ratio] 14.1 % 12.0-14.8 [facility] Estimated glomerular filtrat ion rate (GFR) non- AmericanOrdered By: Loi Wong on 04-16-2022 GFR/1.73 sq M.predicted among non-blacks MDRD (S/P/Bld) [Vol rate/Area] > 60 mL/Min [facility] Hematocrit Auto (Bld) [Volum e fraction]Ordered By: Lio Wong on 04-16-2022 Hematocrit (Bld) [Volume fraction] 43.2 % 38.8-50.0 [facility] Hemoglobin [Mass/volume] in BloodOrdered By: Loi Wong on 04-16-2022 Hemoglobin (Bld) [Mass/Vol] 14.7 g/dL 13.0-17.0 [facility] - Chemistry and C hemistry - challengeOrdered By: Loi Wong on 04-16-2022 Natriuretic peptide B (Bld) [Mass/Vol] 29.0 pg/mL 5-100 [facility] - CoagulationOrde red By: Loi Wong on 04-16-2022 PT Coag (PPP) [Time] 12.0 s 9.0-12.9 [facility] - Hematology and Cell countsOrdered By: Loi Wong on 04-16-2022 Nucleated RBC/100 WBC (Bld) [Ratio] 0.1 % 0-0.5 [facility] Leukocytes [#/volume] in Blo od by Automated countOrdered By: Loi Wong on 04-16-2022 WBC (Bld) [#/Vol] 7.7 10*3/uL 4.5-11.0 [facility] Lymphocytes Auto (Bld) [#/Vo l]Ordered By: Loi Wong on 04-16-2022 Lymphocytes (Bld) [#/Vol] 2.3 10*3/uL 1.00-4.8 [facility] Lymphocytes/100 WBC Auto (Bl d)Ordered By: Loi Wong on 04-16-2022 Lymphocytes/100 WBC (Bld) 29.4 % . [facility] MCH Auto (RBC) [Entitic mass ]Ordered By: Loi Wong on 04-16-2022 MCH (RBC) [Entitic mass] 32.0 pg 27.5-35.2 [facility] MCHC Auto (RBC) [Mass/Vol]Or dered By: Loi Wong on 04-16-2022 MCHC (RBC) [Mass/Vol] 34.0 g/dL 32.5-35.6 [facility] MCV Auto (RBC) [Entitic vol] Ordered By: Loi Wong on 04-16-2022 MCV (RBC) [Entitic vol] 94.0 fL 83.5-101 [facility] Monocytes Auto (Bld) [#/Vol] Ordered By: Loi Wong on 04-16-2022 Monocytes (Bld) [#/Vol] 0.6 10*3/uL 0.0-0.8 [facility] Monocytes/100 WBC Auto (Bld) Ordered By: Loi Wong on 04-16-2022 Monocytes/100 WBC (Bld) 7.7 % . [facility] Neutrophils Auto (Bld) [#/Vo l]Ordered By: Loi Wong on 04-16-2022 Neutrophils (Bld) [#/Vol] 4.7 10*3/uL 1.8-7.7 [facility] Neutrophils/100 WBC Auto (Bl d)Ordered By: Loi Wong on 04-16-2022 Neutrophils/100 WBC (Bld) 60.5 % . [facility] No Panel InformationOrdered By: Loi Wong on 04-16-2022 D-Dimer Quantitative (PE/DVT) < 200 ng/mL 0-243 [facility] Comment on above: The reference range [...] conditions. Estimated GFR () > 60 mL/Min [facility] Comment on above: GFR estimated refere nce range: According to KDOQI guidelines, <60 ml/min/1.73m2 is sufficient to diagnose a patient with chronic kidney disease. Pharmacy Creatinine Clearance (Chem 79.33 [facility] Platelet mean volume Auto (B ld) [Entitic vol]Ordered By: Loi Wong on 04-16-2022 Platelet mean volume (Bld) [Entitic vol] 9.7 fL 6.6-10.1 [facility] Platelet poor plasma interna tional normalized ratio (INR) by coagulation assay (relatOrdered By: Loi Wong on 04-16-2022 INR Coag (PPP) [Relative time] 1.1 {INR} [facility] Comment on above: INR Therapeutic Rang [...] 04-16-2022 Platelets (Bld) [#/Vol] 238 10*3/uL 150-450 [facility] RBC Auto (Bld) [#/Vol]Ordere d By: Loi Wong on 04-16-2022 RBC (Bld) [#/Vol] 4.59 10*6/uL 3.90-5.60 [facility] Serum or plasma anion gap de terminationOrdered By: Loi Wong on 04-16-2022 Anion gap [Moles/Vol] 12.4 mmol/L 6.0-15.0 [facility] Serum or plasma calcium paramjit urement (mass/volume)Ordered By: oLi Wong on 04-16-2022 Calcium [Mass/Vol] 9.0 mg/dL 8.2-10.2 [facility] Serum or plasma chloride robby surement (moles/volume)Ordered By: Loi Wong on 04-16-2022 Chloride [Moles/Vol] 103 mmol/L 95-114 [facility] Serum or plasma creatine kin ase MB (CKMB)/total creatine kinase (CK) ratio by calculaOrdered By: Loi Wong on 04-16-2022 CK.MB Calc [Catalytic fraction] 2.0 % 0.00-2.50 [facility] Serum or plasma creatine kin ase MB measurement (mass/volume)Ordered By: Loi Wong on 04-16-2022 CK.MB [Mass/Vol] 1.4 ng/mL 0.6-6.3 [facility] Serum or plasma glucose paramjit urement (mass/volume)Ordered By: Loi Wong on 04-16-2022 Glucose [Mass/Vol] 88 mg/dL 70-100 [facility] Comment on above: ADA recommended refe rence rangeRandom Glucose Reference Range is dependent on time and content of last meal. Glucose of more than 200 mg/dL in a nonstressed, ambulatory subject supports the diagnosis of Diabetes Mellitus. Serum or plasma potassium me asurement (moles/volume)Ordered By: Loi Wong on 04-16-2022 Potassium [Moles/Vol] 4.3 mmol/L 3.5-5.1 [facility] Serum or plasma sodium measu rement (moles/volume)Ordered By: Loi Wong on 04-16-2022 Sodium [Moles/Vol] 135 mmol/L 136-146 [facility] Serum or plasma total carbon dioxide measurement (moles/volume)Ordered By: Loi Wong on 04-16-2022 CO2 [Moles/Vol] 23.9 mmol/L 22.0-30.0 [facility] Serum or plasma urea nitroge n measurement (mass/volume)Ordered By: Loi Wong on 04-16-2022 Urea nitrogen [Mass/Vol] 12 mg/dL 03-10 [facility] Troponin I.cardiac [Mass/vol ume] in Serum or Plasma by High sensitivity methodOrdered By: Loi Wong on 04-16-2022 Troponin I.cardiac High sensitivity method [Mass/Vol] 5 pg/mL 0 [facility] COVID Quick Testingon 2021 Result Negative [facility] [place] Other Quick Fluon 03-16-2022 FLUAV Ab CF (S) [Titer] Negative [facility] Other FLUBV Ab CF (S) [Titer] Negative [facility] Other MRI Brain w/o + w/on 022 [...] by Jillian Morales on 01/18/2022 1413 Normal [facility] Cell Count + Differential, C SFon 11-07-2021 WBC (Bld) [#/Vol] 0.006 10*3/uL above high threshold 0 - 5 [facility] Work Phone: [phone] Cell Count + Differential, CSF 70 1 [facility] [employer] Work Phone: [phone] Cell Count + Differential, CSF 10 % [facility] [employer] Work Phone: [phone] Cell Count + Differential, CSF 60 % [facility] [employer] Work Phone: [phone] Cell Count + Differential, CSF 30 % [facility] [employer] Work Phone: [phone] Cell Count + Differential, CSF Colorless COLORLESS [facility] Work Phone: [phone] Cell Count + Differential, CSF 245 /uL above high threshold 0 - 5 [facility] [employer] Work Phone: [phone] Cell Count + Differential, CSF Tube 1 [facility] [employer] Work Phone: [phone] Cell Count + Differential, CSF Clear CLEAR [facility] [employer] Work Phone: [phone] Cult, CSF, includes smearon 11-07-2021 Bacteria identified Cx Nom (CSF) [facility] [employer] Work Phone: [phone] Laboratoryon 11-07-2021 Albumin [...] Phone: [phone] Albumin [Mass/Vol] 4578 mg/dL [phone] [facility] Work Phone: [phone] IgG (CSF) [Mass/Vol] 2.2 mg/dL 0.0-6.0 [facility] Work Phone: [phone] IgG [Mass/Vol] 496 mg/dL below low threshold [phone] [facility] [employer] Work Phone: [phone] Comment on above: REFERENCE INTERVAL: Immunoglobulin GAccess complete set of age- and/or gender-specific reference intervals for this test in the [facility] ([facility]). IgG clearance/Albumin clearance (S+CSF) [Ratio] 0.56 {ratio} 0.28-0.66 [facility] Work Phone: [phone] IgG synthesis rate Calc (S+CSF) [Mass/Time] 0.5 mg/d <=8.0 [facility] [employer] Work Phone: [phone] IgG/Albumin (CSF) [Mass ratio] 0.06 {ratio} below low threshold 0.09-0.25 [facility] Work Phone: [phone] Oligoclonal bands Elph (CSF) [Interp] Negative Negative [facility] Work Phone: [phone] Oligoclonal bands Elph Curtis (CSF) [Interp] See Note [facility] Work Phone: [phone] Comment on above: Isoelectric focusing /immunofixation revealed no oligoclonal bands in either the CSF or the serum. This is considered to be a negative result for oligoclonal bands. Approximately 5 percent of patients with clinically definitive multiple sclerosis will have a negative result.Performed By: [employer] [place] [address] [id number] Director: Paula Middleton MD Albumin (CSF) [Mass/Vol] [...] [phone] Canceled [facility] Work Phone: Path Review, CSFon 2 Path Review, CSF JIMBO [facility] Work Phone: Comment on above: By her/his signature above, the Pathologist listed as making the final interpretation certifies that she/he has personally reviewed this case. HEMORRHAGIC SPECIMEN, NO MALIGNANT CELLS IDENTIFIED. Blood Pressure Cuff Sizeon 0 11-03-2021 Fall risk assessment a) No falls within the last year [facility] Phone: Tobacco use status CPHS a) Yes [facility] Work Phone: Blood Pressure Cuff Size Adult [facility] Work Phone: Initial Visit (Neurosurgery) on 11-03-2021 Initial Visit (Neurosurgery) Diagnoses/Problems Weight loss (783.21) (R63.4) Anxiety (300.00) (F41.9) Depression (311) (F32.A) History of high cholesterol (V12.29) (Z86.39) 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 In [...] He saw Dr. Ba a neurologist in [facility]. He describes his vision as seeing [...] MG Oral Tablet Vitals Vital Signs Recorded: [id number] 09:38AM Ixhwkkrpkdm24.2 F Heart Rate63 Uvdngdmkwxd53 Gaqyzpdo438 Ddrfrhayi46 Blood Pressure Cuff SizeAdult Height5 ft 7.13 in Kfvadp864 lb 6 oz BMI Fyispimqjx59.05 kg/m2 BSA Calculated1.91 Tobacco Usea) Yes Fall Screeninga) No falls within the last year O2 Dnogpoypoc92 Pain Scale7 Physical Exam Constitutional - General appearance: No acute distress, well de (more content not included)... 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 In [...] He saw Dr. Ba a neurologist in [facility]. He describes his vision as seeing [...] MG Oral Tablet Vitals Vital Signs Recorded: [id number] 09:38AM Fbjzzdczqum99.2 F Heart Rate63 Snnidfktkyp16 Hufkqxiy817 Zhubgkmus39 Blood Pressure Cuff SizeAdult Height5 ft 7.13 in Nezrco093 lb 6 oz BMI Tcfvleagid09.05 kg/m2 BSA Calculated1.91 Tobacco Usea) Yes Fall Screeninga) No falls within the last year O2 Mmkxtwimnz81 Pain Scale7 Ph (more content not included)... Normal [facility] CBC W Auto Differential pane l (Bld)on 10-06-2021 Basophils (Bld) [#/Vol] 0.06 10*3/uL [facility] Basophils/100 WBC (Bld) 0.8 % [facility] Differential cell count method Nom (Bld) Auto [facility] Eosinophils (Bld) [#/Vol] 0.11 10*3/uL [facility] Eosinophils/100 WBC (Bld) 1.5 % [facility] Erythrocyte distribution width (RBC) [Ratio] 12.8 % 11.5 - 15.0 % [facility] Hematocrit (Bld) [Volume fraction] 43.7 % 39.0 - 51.0 % [facility] Hemoglobin (Bld) [Mass/Vol] 14.6 g/dL 13.0 - 17.0 g/dL [facility] Immature granulocytes (Bld) [#/Vol] [facility] Immature granulocytes/100 WBC (Bld) 0.3 % [facility] Lymphocytes (Bld) [#/Vol] 1.75 10*3/uL [facility] Lymphocytes/100 WBC (Bld) 23.7 % [facility] MCH (RBC) [Entitic mass] 32.7 pg 26.0 - 34.0 pg [facility] MCHC (RBC) [Mass/Vol] 33.4 g/dL 30.5 - 36.0 g/dL [facility] MCV (RBC) [Entitic vol] 98.0 fL 80.0 - 100.0 fL [facility] Monocytes (Bld) [#/Vol] 0.52 10*3/uL [facility] Monocytes/100 WBC (Bld) 7.0 % [facility] Neutrophils (Bld) [#/Vol] 4.92 10*3/uL [facility] Neutrophils/100 WBC (Bld) 66.7 % [facility] Nucleated RBC (Bld) [#/Vol] [facility] Nucleated RBC/100 WBC (Bld) [Ratio] 0.0 % /100 WBC [facility] Platelet mean volume (Bld) [Entitic vol] 10.8 fL 9.0 - 12.7 fL [facility] Platelets (Bld) [#/Vol] 246 10*3/uL [facility] RBC (Bld) [#/Vol] 4.46 10*6/uL 4.20 - 6.00 m/uL [facility] WBC (Bld) [#/Vol] 7.38 10*3/uL [facility] This is an appended report. These results have been appended to a previously verified report. [facility] CT Chest W contrast Tristin IMPRESSION: [...] any questions regarding this interpretation, please call [phone]. If you are unable to reach us at the number above, please feel free to contact [facility] at [phone]. ZZZ_DO_NOT_US E_DIVISION OF RADIOLOGY * * *Final Report* * * DATE OF EXAM: Oct 06 2021 8:22AM [facility] 0539 - CT CHEST W [...] images through the upper abdomen appear stable. Slubber Runner (topogram) images: No additional findings. ZZZ_DO_NOT_US E_DIVISION OF RADIOLOGY Provider, [facility] - 10/06/2021 * * *Final Report* * * DATE OF EXAM: Oct 06 2021 8:22AM [facility] 0539 - CT CHEST W [...] images through the upper abdomen appear stable. Slubber Runner (topogram) images: No additional findings. IMPRESSION IMPRESSION: [...] any questions regarding this interpretation, please call [phone]. If you are unable to reach us at the number above, please feel free to contact [facility] at [phone]. [facility] CT Neck W contrast Tristin 04-2 [...] any questions regarding this interpretation, please call [phone]. If you are unable to reach us at the number above, please feel free to [facility] at [phone]. ZZZ_DO_NOT_US E_DIVISION OF RADIOLOGY * * *Final Report* * * DATE OF EXAM: Oct 06 2021 8:22AM [facility] 0013 - CT NECK SOFT [...] siphons. ZZZ_DO_NOT_US E_DIVISION OF RADIOLOGY Provider, Dacia Guillory - 10/06/2021 * * *Final Report* * * DATE OF EXAM: Oct 06 2021 8:22AM [facility] 0013 - CT NECK SOFT [...] any questions regarding this interpretation, please call [phone]. If you are unable to reach us at the number above, please feel free to contact [facility] at [phone]. [facility] CT Neck W contrast IVOrdered By: Ccf Provider on 10-06-2021 [facility] Comprehensive metabolic 2000 panelOrdered By: Micheal Vizcaino on 10-06-2021 Albumin [Mass/Vol] 4.5 g/dL 3.9 - 4.9 g/dL [facility] ALP [Catalytic activity/Vol] 82 U/L 38 - 113 U/L [facility] ALT [Catalytic activity/Vol] 25 U/L 10 - 54 U/L [facility] Anion gap [Moles/Vol] 10 mmol/L 9 - 18 mmol/L [facility] AST [Catalytic activity/Vol] 21 U/L 14 - 40 U/L [facility] Bilirubin [Mass/Vol] 0.6 mg/dL 0.2 - 1 .3 mg/dL [facility] Calcium [Mass/Vol] 9.5 mg/dL 8.5 - 10. 2 mg/dL [facility] Chloride [Moles/Vol] 106 mmol/L High 97 - 10 5 mmol/L [facility] CO2 [Moles/Vol] 29 mmol/L 22 - 30 mmol/L [facility] Creatinine [Mass/Vol] 1.01 mg/dL 0.73 - 1.22 mg/dL [facility] GFR/1.73 sq M.predicted among non-blacks MDRD (S/P/Bld) [Vol rate/Area] 86 mL/min/{1.73_m2} - PINF [facility] Comment on above: Estimated Glomerular Filtration [...] 107 mg/dL High 74 - 99 mg/dL [facility] Comment on above: The [place] Diab[employer] s Association (ADA) provides guidance for [...] Standards of Medical Care in Diabetes 2016, [place] [employer] Association. Diabetes Care. 2016.39(Suppl 1). Interpretation and review of laboratory results Abnormal [facility] Potassium [Moles/Vol] 4.2 mmol/L 3.7 - 5.1 mmol/L [facility] Protein [Mass/Vol] 6.5 g/dL 6.3 - 8.0 g/dL [facility] Sodium [Moles/Vol] 145 mmol/L High 136 - 144 mmol/L [facility] Urea nitrogen [Mass/Vol] 10 mg/dL 9 - 24 mg/dL [facility] No Panel Informationon 10-06 Radiology Study observation (narrative) [facility] COVID + FLU Quick Testingon 06-30-2021 SARS-CoV-2 (COVID-19) RNA JER+probe Ql (Unsp spec) Negative [facility] Other COVID + FLU Quick Testing Negative [facility] Other COVID Quick Testingon 2020 Result Negative [facility] Other Basophils Auto (Bld) [#/Vol] on 09-20-2020 Basophils (Bld) [#/Vol] 0.0 10*3/uL 0.0-0.2 [facility] Basophils/100 WBC Auto (Bld) on 09-20-2020 Basophils/100 WBC (Bld) 0.6 % [facility] Blood hemoglobin measurement (mass/volume)on 09-20-2020 Hemoglobin (Bld) [Mass/Vol] 14.4 g/dL 13.0-17.0 [facility] Blood leukocytes automated c ount (number/volume)on 09-20-2020 WBC (Bld) [#/Vol] 7.4 10*3/uL 4.5-11.0 [facility] Eosinophils Auto (Bld) [#/Vo l]on 09-20-2020 Eosinophils (Bld) [#/Vol] 0.1 10*3/uL 0.0-0.45 [facility] Eosinophils/100 WBC Auto (Bl d)on 09-20-2020 Eosinophils/100 WBC (Bld) 0.9 % [facility] Erythrocyte distribution wid th Auto (RBC) [Ratio]on 09-20-2020 Erythrocyte distribution width (RBC) [Ratio] 14.6 % 12.0-14.8 [facility] Hematocrit Auto (Bld) [Volum e fraction]on 09-20-2020 Hematocrit (Bld) [Volume fraction] 41.7 % 38.8-50.0 [facility] Lymphocytes Auto (Bld) [#/Vo l]on 09-20-2020 Lymphocytes (Bld) [#/Vol] 1.6 10*3/uL 1.00-4.8 [facility] Lymphocytes/100 WBC Auto (Bl d)on 09-20-2020 Lymphocytes/100 WBC (Bld) 21.3 % [facility] MCH Auto (RBC) [Entitic mass ]on 09-20-2020 MCH (RBC) [Entitic mass] 32.4 pg 27.5-35.2 [facility] MCHC Auto (RBC) [Mass/Vol]on 09-20-2020 MCHC (RBC) [Mass/Vol] 34.5 g/dL 32.5-35.6 [facility] MCV Auto (RBC) [Entitic vol] on 09-20-2020 MCV (RBC) [Entitic vol] 93.9 fL 83.5-101 [facility] Monocytes Auto (Bld) [#/Vol] on 09-20-2020 Monocytes (Bld) [#/Vol] 0.6 10*3/uL 0.0-0.8 [facility] Monocytes/100 WBC Auto (Bld) on 09-20-2020 Monocytes/100 WBC (Bld) 8.6 % [facility] Neutrophils Auto (Bld) [#/Vo l]on 09-20-2020 Neutrophils (Bld) [#/Vol] 5.1 10*3/uL 1.8-7.7 [facility] Neutrophils/100 WBC Auto (Bl d)on 09-20-2020 Neutrophils/100 WBC (Bld) 68.6 % [facility] Otheron 09-20-2020 Nucleated RBC/100 WBC (Bld) [Ratio] 0.0 % 0-0.5 [facility] Platelet mean volume Auto (B ld) [Entitic vol]on 09-20-2020 Platelet mean volume (Bld) [Entitic vol] 9.3 fL 6.6-10.1 [facility] Platelets Auto (Bld) [#/Vol] on 09-20-2020 Platelets (Bld) [#/Vol] 182 10*3/uL 150-450 [facility] RBC Auto (Bld) [#/Vol]on RBC (Bld) [#/Vol] 4.44 10*6/uL 3.90-5.60 [facility] Body fluid albumin measureme nt (mass/volume)on 09-13-2020 Albumin (Body fld) [Mass/Vol] 4.3 g/dL 3.2-5.5 [facility] Cholesterol [Mass/volume] in Serum or Plasmaon 09-13-2020 Cholesterol [Mass/Vol] 219 mg/dL 140-200 [facility] Comment on above: Chol less than 200 m g/dl low riskChol 201-239 mg/dl borderline riskChol 240 mg/dl and greater high risk Cholesterol in LDL Calc [Mas s/Vol]on 09-13-2020 Cholesterol in LDL [Mass/Vol] 149 mg/dL 0-100 [facility] Comment on above: LDL ATP III CLASSIFI CATIONLDL less than 100 mg/dL OptimalLDL 100-129 mg/dL Near or above optimalLDL 130-159 mg/dL Borderline highLDL 160-189 mg/dL HighLDL greater than 189 mg/dL Very high Cholesterol in VLDL Calc [Ma ss/Vol]on 09-13-2020 Cholesterol in VLDL [Mass/Vol] 28 mg/dL [facility] Creatinine and Glomerular fi ltration rate.predicted panel (S/P/Bld)on 09-13-2020 Creatinine [Mass/Vol] 0.89 mg/dL 0.64-1.27 [facility] GFR/1.73 sq M.predicted roverto g non-blacks MDRD (S/P/Bld) [Vol rate/Area]on 09-13-2020 GFR/1.73 sq M predicted among non-blacks MDRD (S/P/Bld) [Vol rate/Area] > 60 mL/Min [facility] Globulin Calc (S) [Mass/Vol] on 09-13-2020 Globulin (S) [Mass/Vol] 2.0 g/dL [facility] No Panel Informationon 09-13 Estimated GFR () > 60 mL/Min [facility] Comment on above: GFR estimated refere nce range: According to KDOQI guidelines, <60 ml/min/1.73m2 is sufficient to diagnose a patient with chronic kidney disease. Otheron 09-13-2020 GFR/1.73 sq M.predicted MDRD (S/P/Bld) [Vol rate/Area] > 60 mL/Min [facility] Comment on above: GFR estimated refere nce range: According to KDOQI guidelines, <60 ml/min/1.73m2 is sufficient to diagnose a patient with chronic kidney disease. Pharmacy Creatinine Clearance (Chem N/A [facility] Prostate Specific Antigen Screen 0.480 ng/mL 0.000-4.00 0 [facility] Protein [Mass/volume] in Ser um or Plasmaon 09-13-2020 Protein [Mass/Vol] 6.3 g/dL 6.1-7.9 [facility] SARS-CoV-2 (COVID-19) IgG Ab [Presence] in Serum or Plasma by Immunoassayon 09-13-2020 SARS-CoV-2 (COVID-19) IgG Ab [Presence] in Serum or Plasma by Immunoassay Positive Negative [facility] Comment on above: Results suggest rece nt or prior infection with SARS-CoV-2.Correlation with epidemiologic risk factors and otherclinical and laboratory findings is recommended. Serologicresults should not be used as the sole basis to diagnose orexclude recent SARS-CoV-2 infection. False positive resultsinfrequently occur due to prior infection with other humanCoronaviruses.This assay was performed using the [employer](R)SARS-CoV-2 S1/S2 IgG assay.This assay detects antibodies against SARS-CoV-2 spikeprotein including the receptor binding domain (RBD).Performed at: [facility] [id number] Director: Florencio Wu PhD, Phone: [phone] SARS-CoV-2 (COVID-19) IgG IA Ql Positive Negative [facility] Comment on above: Results suggest rece nt or prior infection with SARS-CoV-2.Correlation with epidemiologic risk factors and otherclinical and laboratory findings is recommended. Serologicresults should not be used as the sole basis to diagnose orexclude recent SARS-CoV-2 infection. False positive resultsinfrequently occur due to prior infection with other humanCoronaviruses.This assay was performed using the [employer](R)SARS-CoV-2 S1/S2 IgG assay.This assay detects antibodies against SARS-CoV-2 spikeprotein including the receptor binding domain (RBD).Performed at: [employer] [address] [id number] Director: Florencio Wu PhD, Phone: [phone] Serum or plasma alanine mclaughlin otransferase measurement without P-5'-P (enzymatic activion 09-13-2020 ALT No additional P-5'-P [Catalytic activity/Vol] 19 U/L 1060 [facility] Serum or plasma albumin/glob ulin mass ratioon 09-13-2020 Albumin/Globulin [Mass ratio] 2.2 {ratio} [facility] Serum or plasma alkaline fuentes sphatase measurement (enzymatic activity/volume)on 09-13-2020 ALP [Catalytic activity/Vol] 53 U/L 3292 [facility] Serum or plasma aspartate am inotransferase measurement (enzymatic activity/volume)on 09-13-2020 AST [Catalytic activity/Vol] 22 U/L 1042 [facility] Serum or plasma calcium paramjit urement (mass/volume)on 09-13-2020 Calcium [Mass/Vol] 9.1 mg/dL 8.2-10.2 [facility] Serum or plasma chloride robby surement (moles/volume)on 09-13-2020 Chloride [Moles/Vol] 105 mmol/L 95-114 [facility] Serum or plasma glucose paramjit urement (mass/volume)on 09-13-2020 Glucose [Mass/Vol] 97 mg/dL 70-100 [facility] Comment on above: ADA recommended refe rence rangeRandom Glucose Reference Range is dependent on time and content of last meal. Glucose of more than 200 mg/dL in a nonstressed, ambulatory subject supports the diagnosis of Diabetes Mellitus. Serum or plasma high density lipoprotein (HDL) cholesterol measurementon 09-13-2020 Cholesterol in HDL [Mass/Vol] 41 mg/dL [facility] Comment on above: HDL CHOL ATP-III CLA SSIFICATION Cardiovascular RiskHDL > or equal to 60 mg/dL LOWHDL < 40 mg/dL HIGH Serum or plasma potassium me asurement (moles/volume)on 09-13-2020 Potassium [Moles/Vol] 4.2 mmol/L 3.5-5.1 [facility] Serum or plasma sodium measu rement (moles/volume)on 09-13-2020 Sodium [Moles/Vol] 135 mmol/L 136-146 [facility] Serum or plasma thyroid stim ulating hormone (TSH) measurement by high sensitivity meton 09-13-2020 TSH Qn 1.66 u[iU]/mL 0.45-5.33 [facility] Serum or plasma total biliru bin measurement (mass/volume)on 09-13-2020 Bilirubin [Mass/Vol] 0.9 mg/dL 0.3-1.2 [facility] Serum or plasma total carbon dioxide measurement (moles/volume)on 09-13-2020 CO2 [Moles/Vol] 22.5 mmol/L 22.0-30.0 [facility] Serum or plasma total choles terol/high density lipoprotein (HDL) cholesterol mass gia 09-13-2020 Cholesterol.total/Chol esterol in HDL [Mass ratio] 5.3 {ratio} [facility] Serum or plasma urea nitroge n measurement (mass/volume)on 09-13-2020 Urea nitrogen [Mass/Vol] 12 mg/dL 9- [facility] TSH DL <= 0.005 mIU/L Qnon 0 09-13-2020 TSH Qn 1.66 m[IU]/L 0.45-5.33 [facility] Triglyceride [Mass/volume] i n Serum or Plasmaon 09-13-2020 Triglyceride [Mass/Vol] 144 mg/dL 35-149 [facility] Comment on above: TRIG ATP [...] eye. Coleen Grajeda M.D. aek Dictated: 04/14/2019 #[id number] Typed 04/14/2019 #[id number] cc: Coleen Grajeda M.D. [facility] Comment on above: Result Comment: [...] and inferior fornices of the eye. A The True Equestriansan manometer was set on the eye at [...] Room in good condition. Coleen Grajeda M.D. s Dictated: 04/14/2019 #[id number] Typed: 04/15/2019 #[id number] cc: Coleen Grajeda M.D. [facility] Comment on above: Result Comment: Elec tronically Signed By: Coleen Grajeda MD\.br\Date and Time Signed: 04/18/19 09:54 EDT Coding Summary.on 04-15-2019 Coding Summary. 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 Name: SHANTEL MELENDEZ/Sex: 1960 Male Med Rec #: [id number] Physician: Coleen Grajeda MD Financial #: [id number] Pt. Type: A Room/Bed: [facility]07/19 Admit/Disch: 04/14/19 12:59:00 - 04/14/19 16:00:00 Institution: Case Times FT Entry 1 Patient Times In Room 04/14/19 14:55:00 Out Room 04/14/19 15:17:00 Procedure Times Start 04/14/19 15:03:00 Stop 04/14/19 15:14:00 Anesthesia Times Last Modified By: Asya Alves CST 04/14/19 15:16:26 General Comments: 04/15/19 Chart opened to review and send charges Avinash Alves STRIPE MARKER Case Attendance FT Entry 1 Entry 2 Entry 3 Case Attendee Taras NORRIS, Coleen Alves CST, Asya Karimi RN, Johnathon Mullins Role Performed Surgeon - Primary Scrub - Primary Executive Legal Secretary - Primary Time In 04/14/19 14:55:00 04/14/19 [...] VERNON, Pauly GOODEN, RN, Tierra Role Performed Executive Legal Secretary - Primary Executive Legal Secretary - Relief Time In 04/14/19 14:55:00 04/14/19 [...] Grajeda MD, Given Participants Asya Alves CST, Sachi VERNON, Omar Motley RN, Pauly Da Silva Time [...] Unable to Visualize, Outcomes Met? Yes Warm, [place], Dry Last Modified By: Johnathon Karimi RN [...] RN Patient Status Stable Skin. Condition Warm, [place], Dry Description unchanged Airway Maintenance Oxygen in [...] LENS(Left) Implant Identification FT Description [employer] [id number] [employer] Serial Number [id number] SIZE 21.0 [[id number] 21.0][F] Lot Number [id number] Photograph Finisher FT-BAUSCH [employer]OM[employer] Catalog ?# [id number] 21.0[F] Expiration Date 10/16/23 Unique Device [id number] Identifier (BERANRD) Usage Data FT Implant Site Eye L [...] 15:16 Asya Alves CST 04/15/19 14:44 Normal [facility] Inpatient Patient Summaryon 04-14-2019 Inpatient Patient Summary [facility] Clinical Discharge Instructions PERSON INFORMATION Name: SHANTEL MELENDEZ PHYSICIANS Admitting Physician: Coleen Grajeda MD Attending Physician: Coleen Grajeda MD PCP: JILLIAN BARONE DO Discharge Diagnosis: Cataract Comment: PATIENT EDUCATION INFORMATION Instructions: Medication Leaflets: Follow up: With: Address: When: Coleen Grajeda [address] [place] [address] [facility] (1) Comments: Call physician if symptoms worsen Keep scheduled appointment MEDICATION LIST Comment: Normal [facility] Main OR PACU II [facility] Main OR PACU II Record PACU Phase II Doc ument Type FT Summary Primary Physician: Coleen Grajeda MD Finalized Date/Time: 04/14/19 17:54:42 Pt. Name: SHANTEL MELENDEZO.B./Sex: 1960 Male Med Rec #: [id number] Physician: Coleen Grajeda MD Financial #: [id number] Pt. Type: A Room/Bed: [facility] Admit/Disch: 04/14/19 12:59:23 - Institution: Case [...] By: Lizeth Rush RN 04/14/19 17:54 Normal [facility] Main OR Preoperative Recordo n 04-14-2019 Main OR Preoperative Record PreOp Document Type FT Summary Primary Physician: Coleen Grajeda MD Finalized Date/Time: 04/14/19 15:14:03 Pt. Name: SHANTEL MELENDEZ/Sex: 1960 Male Med Rec #: [id number] Physician: Coleen Grajeda MD Financial #: [id number] Pt. Type: A Room/Bed: [place] [address] Admit/Disch: 04/14/19 12:59:23 - Institution: Case Times [...] By: Johnathon Karimi RN 04/14/19 15:14 Normal [facility] Patient Education - Texton 1 Patient Education - Text [facility] Vital Signs Date Time Vital Sign Value Performing Clinician Facility 04-01-2025 14:04-0400 Body height 172.72 cm [employer] DO Work Phone: [facility] 04-01-2025 14:04-0400 Body mass index (BMI) [Ratio] 24.1 kg/m2 Griselda [employer] DO Work Phone: [facility] 04-01-2025 14:04-0400 Body weight 72.12 kg [employer] DO Work Phone: [facility] 04-01-2025 14:04-0400 Diastolic blood pressure 70 mm[Hg] Griselda [employer] DO Work Phone: [facility] 04-01-2025 14:04-0400 Heart rate 103 /min Griselda [employer] DO Work Phone: [facility] 04-01-2025 14:04-0400 Respiratory rate 16 /min Griselda [employer] DO Work Phone: [facility] 04-01-2025 14:04-0400 SaO2% (BldA) [Mass fraction] 99 % Griselda [employer] DO Work Phone: [facility] 04-01-2025 14:04-0400 Systolic blood pressure 112 mm[Hg] Griselda Kuns DO Work Phone: [facility] 02-19-2025 11:25-0400 Body height 172.72 cm Griselda Kuns DO Work Phone: [facility] 02-19-2025 11:25-0400 Body mass index (BMI) [Ratio] 24.1 kg/m2 Griselda Kuns DO Work Phone: [facility] 02-19-2025 11:25-0400 Body weight 72.12 kg Griselda Kuns DO Work Phone: [facility] 02-19-2025 11:25-0400 Diastolic blood pressure 68 mm[Hg] Griselda Kuns DO Work Phone: [facility] 02-19-2025 11:25-0400 Heart rate 107 /min Griselda Kuns DO Work Phone: [facility] 02-19-2025 11:25-0400 Respiratory rate 16 /min Griselda Kuns DO Work Phone: [facility] 02-19-2025 11:25-0400 SaO2% (BldA) [Mass fraction] 98 % Griselda Kuns DO Work Phone: [facility] 02-19-2025 11:25-0400 Systolic blood pressure 102 mm[Hg] Griselda Kuns DO Work Phone: [facility] 02-04-2025 14:41-0400 Body mass index (BMI) [Ratio] 24.18 kg/m2 Oziel Cadena MD Work Phone: [facility] 02-04-2025 14:41-0400 Body weight 72.12 kg Oziel Cadena MD Work Phone: [facility] 02-04-2025 14:41-0400 Diastolic blood pressure 93 mm[Hg] Oziel Cadena MD Work Phone: [facility] 02-04-2025 14:41-0400 Heart rate 113 /min Oziel Cadena MD Work Phone: [facility] 02-04-2025 14:41-0400 Systolic blood pressure 133 mm[Hg] Oziel Cadena MD Work Phone: [facility] 01-12-2025 15:20-0400 Body height 172.72 cm Griselda Kuns DO Work Phone: [facility] 01-12-2025 15:20-0400 Body mass index (BMI) [Ratio] 27 kg/m2 Griselda Kuns DO Work Phone: [facility] 01-12-2025 15:20-0400 Body weight 80.73 kg Griselda Kuns DO Work Phone: [facility] 01-12-2025 15:20-0400 Diastolic blood pressure 74 mm[Hg] Griselda Kuns DO Work Phone: [facility] 01-12-2025 15:20-0400 Heart rate 76 /min Griselda Kuns DO Work Phone: [facility] 01-12-2025 15:20-0400 Systolic blood pressure 120 mm[Hg] Griselda Kuns DO Work Phone: [facility] 12-24-2024 14:12-0400 Body mass index (BMI) [Ratio] 25.09 kg/m2 Oziel Cadena MD Work Phone: [facility] 12-24-2024 14:12-0400 Body weight 74.84 kg Oziel Cadena MD Work Phone: [facility] 12-24-2024 14:12-0400 Diastolic blood pressure 87 mm[Hg] Oziel Cadena MD Work Phone: [facility] 12-24-2024 14:12-0400 Heart rate 85 /min Oziel Cadena MD Work Phone: [facility] 12-24-2024 14:12-0400 Systolic blood pressure 125 mm[Hg] Oziel Cadena MD Work Phone: [facility] 11-19-2024 14:04-0400 Body height 172.72 cm Griselda Kuns DO Work Phone: [facility] 11-19-2024 14:04-0400 Body temperature 100.7 [degF] Griselda Kuns DO Work Phone: [facility] 11-19-2024 14:04-0400 Heart rate 96 /min Griselda Kuns DO Work Phone: [facility] 11-19-2024 14:04-0400 Respiratory rate 18 /min Griselda Kuns DO Work Phone: [facility] 11-19-2024 14:04-0400 SaO2% (BldA) [Mass fraction] 99 % Griselda Kuns DO Work Phone: [facility] 11-17-2024 14:03-0400 Body height 172.72 cm Griselda Kuns DO Work Phone: [facility] 11-17-2024 14:03-0400 Body mass index (BMI) [Ratio] 26.3 kg/m2 Griselda Kuns DO Work Phone: [facility] 11-17-2024 14:03-0400 Body weight 78.47 kg Griselda Kuns DO Work Phone: [facility] 11-17-2024 14:03-0400 Diastolic blood pressure 80 mm[Hg] Griselda Kuns DO Work Phone: [facility] 11-17-2024 14:03-0400 Heart rate 109 /min Griselda Kuns DO Work Phone: [facility] 11-17-2024 14:03-0400 Systolic blood pressure 120 mm[Hg] Griselda Kuns DO Work Phone: [facility] 11-05-2024 10:30-0400 Diastolic blood pressure 76 mm[Hg] Griselda Kuns DO Work Phone: [facility] 11-05-2024 10:30-0400 Heart rate 71 /min Griselda Kuns DO Work Phone: [facility] 11-05-2024 10:30-0400 Respiratory rate 20 /min Griselda Kuns DO Work Phone: [facility] 11-05-2024 10:30-0400 SaO2% (BldA) [Mass fraction] 98 % Griselda Kuns DO Work Phone: [facility] 11-05-2024 10:30-0400 Systolic blood pressure 110 mm[Hg] Griselda Kuns DO Work Phone: [facility] 11-05-2024 07:12-0400 Body height 172.72 cm Griselda Kuns DO Work Phone: [facility] 11-05-2024 07:12-0400 Body weight 77.11 kg Griselda Kuns DO Work Phone: [facility] 10-27-2024 09:57-0400 Body height 172.72 cm Griselda Kuns DO Work Phone: [facility] 10-27-2024 09:57-0400 Body mass index (BMI) [Ratio] 26.4 kg/m2 Griselda Kuns DO Work Phone: [facility] 10-27-2024 09:57-0400 Body weight 78.92 kg Griselda Kuns DO Work Phone: [facility] 10-27-2024 09:57-0400 Diastolic blood pressure 64 mm[Hg] Griselda Kuns DO Work Phone: [facility] 10-27-2024 09:57-0400 Heart rate 64 /min Griselda Kuns DO Work Phone: [facility] 10-27-2024 09:57-0400 Respiratory rate 18 /min Griselda Kuns DO Work Phone: [facility] 10-27-2024 09:57-0400 SaO2% (BldA) [Mass fraction] 98 % Griselda Kuns DO Work Phone: [facility] 10-27-2024 09:57-0400 Systolic blood pressure 110 mm[Hg] Griselda Kuns DO Work Phone: [facility] 10-13-2024 09:06-0400 Body height 172.7 cm Doretha Harris MD Work Phone: [facility] 10-13-2024 09:06-0400 Body mass index (BMI) [Ratio] 25.54 kg/m2 Doretha Harris MD Work Phone: [facility] 10-13-2024 09:06-0400 Body weight 76.2 kg Doretha Harris MD Work Phone: [facility] 10-13-2024 09:06-0400 Diastolic blood pressure 60 mm[Hg] Doretha Harris MD Work Phone: [facility] 10-13-2024 09:06-0400 Heart rate 75 /min Doretha Harris MD Work Phone: [facility] 10-13-2024 09:06-0400 Systolic blood pressure 100 mm[Hg] Doretha Harris MD Work Phone: [facility] 10-10-2024 13:05-0400 Body height 172.72 cm Griselda Kuns DO Work Phone: [facility] 10-10-2024 13:05-0400 Body mass index (BMI) [Ratio] 25.4 kg/m2 Griselda Kuns DO Work Phone: [facility] 10-10-2024 13:05-0400 Body weight 75.74 kg Griselda Kuns DO Work Phone: [facility] 10-10-2024 13:05-0400 Diastolic blood pressure 58 mm[Hg] Griselda Kuns DO Work Phone: [facility] 10-10-2024 13:05-0400 Heart rate 76 /min Griselda Kuns DO Work Phone: [facility] 10-10-2024 13:05-0400 Systolic blood pressure 94 mm[Hg] Griselda Kuns DO Work Phone: [facility] 10-06-2024 18:42-0400 Diastolic blood pressure 80 mm[Hg] Griselda Kuns DO Work Phone: [facility] 10-06-2024 18:42-0400 Heart rate 80 /min Griselda Kuns DO Work Phone: [facility] 10-06-2024 18:42-0400 Respiratory rate 16 /min Griselda Kuns DO Work Phone: [facility] 10-06-2024 18:42-0400 SaO2% (BldA) [Mass fraction] 98 % Griselda Kuns DO Work Phone: [facility] 10-06-2024 18:42-0400 Systolic blood pressure 142 mm[Hg] Griselda Kuns DO Work Phone: [facility] 10-06-2024 14:04-0400 Body height 172.72 cm Griselda Kuns DO Work Phone: [facility] 10-06-2024 14:04-0400 Body temperature 98.2 [degF] Griselda Kuns DO Work Phone: [facility] 10-06-2024 14:04-0400 Body weight 77.9 kg Griselda Kuns DO Work Phone: [facility] 09-20-2024 14:00-0400 Heart rate 88 /min Griselda Kuns DO Work Phone: [facility] 09-20-2024 14:00-0400 Respiratory rate 20 /min Griselda Kuns DO Work Phone: [facility] 09-20-2024 14:00-0400 SaO2% (BldA) [Mass fraction] 93 % Griselda Kuns DO Work Phone: [facility] 09-20-2024 13:48-0400 Body temperature 99.4 [degF] Griselda Kuns DO Work Phone: [facility] 09-20-2024 13:48-0400 Diastolic blood pressure 59 mm[Hg] Griselda Kuns DO Work Phone: [facility] 09-20-2024 13:48-0400 Systolic blood pressure 103 mm[Hg] Griselda Kuns DO Work Phone: [facility] 09-20-2024 10:55-0400 Body height 172.72 cm Griselda Kuns DO Work Phone: [facility] 09-20-2024 10:55-0400 Body weight 77.9 kg Griselda Kuns DO Work Phone: [facility] 09-11-2024 10:46-0400 Body mass index (BMI) [Ratio] 27.06 kg/m2 Oziel Cadena MD Work Phone: [facility] 09-11-2024 10:46-0400 Body weight 80.74 kg Oziel Cadena MD Work Phone: [facility] 09-11-2024 10:46-0400 Diastolic blood pressure 68 mm[Hg] Oziel Cadena MD Work Phone: [facility] 09-11-2024 10:46-0400 Heart rate 61 /min Oziel Cadena MD Work Phone: [facility] 09-11-2024 10:46-0400 Systolic blood pressure 135 mm[Hg] Oziel Cadena MD Work Phone: [facility] 09-11-2024 09:22-0400 Body height 172.72 cm Griselda Kuns DO Work Phone: [facility] 09-11-2024 09:22-0400 Body mass index (BMI) [Ratio] 28.1 kg/m2 Griselda Kuns DO Work Phone: [facility] 09-11-2024 09:22-0400 Body temperature 96.6 [degF] Griselda Kuns DO Work Phone: [facility] 09-11-2024 09:22-0400 Body weight 84 kg Griselda Kuns DO Work Phone: [facility] 09-11-2024 09:22-0400 Diastolic blood pressure 86 mm[Hg] Griselda Kuns DO Work Phone: [facility] 09-11-2024 09:22-0400 Heart rate 78 /min Griselda Kuns DO Work Phone: [facility] 09-11-2024 09:22-0400 Respiratory rate 16 /min Griselda Kuns DO Work Phone: [facility] 09-11-2024 09:22-0400 SaO2% (BldA) [Mass fraction] 98 % Griselda Kuns DO Work Phone: [facility] 09-11-2024 09:22-0400 Systolic blood pressure 122 mm[Hg] Griselda Kuns DO Work Phone: [facility] 07-31-2024 13:26-0500 Body mass index (BMI) [Ratio] 27.37 kg/m2 Oziel Cadena MD Work Phone: [facility] 07-31-2024 13:26-0500 Body weight 81.65 kg Oziel Cadena MD Work Phone: [facility] 07-31-2024 13:26-0500 Diastolic blood pressure 89 mm[Hg] Oziel Cadena MD Work Phone: [facility] 07-31-2024 13:26-0500 Heart rate 81 /min Oziel Cadena MD Work Phone: [facility] 07-31-2024 13:26-0500 Systolic blood pressure 131 mm[Hg] Oziel Cadena MD Work Phone: [facility] 07-03-2024 09:54-0500 Body height 172.72 cm Griselda Kuns DO Work Phone: [facility] 07-03-2024 09:54-0500 Body mass index (BMI) [Ratio] 28.4 kg/m2 Griselda Kuns DO Work Phone: [facility] 07-03-2024 09:54-0500 Body weight 84.82 kg Griselda Kuns DO Work Phone: [facility] 07-03-2024 09:54-0500 Diastolic blood pressure 70 mm[Hg] Griselda Kuns DO Work Phone: [facility] 07-03-2024 09:54-0500 Heart rate 81 /min Griselda Kuns DO Work Phone: [facility] 07-03-2024 09:54-0500 Respiratory rate 18 /min Griselda Kuns DO Work Phone: [facility] 07-03-2024 09:54-0500 SaO2% (BldA) [Mass fraction] 98 % Griselda Kuns DO Work Phone: [facility] 07-03-2024 09:54-0500 Systolic blood pressure 120 mm[Hg] Griselda Kuns DO Work Phone: [facility] 07-02-2024 14:18-0500 Body mass index (BMI) [Ratio] 28.28 kg/m2 Oziel Cadena MD Work Phone: [facility] 07-02-2024 14:18-0500 Body weight 84.37 kg Oziel Cadena MD Work Phone: [facility] 07-02-2024 14:18-0500 Diastolic blood pressure 77 mm[Hg] Oziel Cadena MD Work Phone: [facility] 07-02-2024 14:18-0500 Heart rate 86 /min Oziel Cadena MD Work Phone: [facility] 07-02-2024 14:18-0500 Systolic blood pressure 143 mm[Hg] Oziel Cadena MD Work Phone: [facility] 06-30-2024 08:56-0500 Body height 172.7 cm Doretha Harris MD Work Phone: 4(907)[phone] [place] [address] 06-30-2024 08:56-0500 Body mass index (BMI) [Ratio] 27.37 kg/m2 Doretha Harris MD Work Phone: 7(029)[phone] [place] [address] 06-30-2024 08:56-0500 Body weight 81.65 kg Doretha Harris MD Work Phone: 6(898)[phone] [place] [address] 06-30-2024 08:56-0500 Diastolic blood pressure 70 mm[Hg] Doretha Harris MD Work Phone: 4(972)[phone] [place] [address] 06-30-2024 08:56-0500 Heart rate 75 /min Doretha Harris MD Work Phone: 0(580)[phone] [place] [address] 06-30-2024 08:56-0500 Systolic blood pressure 124 mm[Hg] Doretha Harris MD Work Phone: 8(287)[phone] [place] [address] 05-21-2024 14:04-0500 Body height 172.7 cm Oziel Cadena MD Work Phone: [facility] 05-21-2024 14:04-0500 Body mass index (BMI) [Ratio] 26.46 kg/m2 Oziel Cadena MD Work Phone: [facility] 05-21-2024 14:04-0500 Body weight 78.93 kg zOiel Cadena MD Work Phone: [facility] 05-21-2024 14:04-0500 Diastolic blood pressure 82 mm[Hg] Oziel Cadena MD Work Phone: [facility] 05-21-2024 14:04-0500 Systolic blood pressure 120 mm[Hg] Oziel Cadena MD Work Phone: [facility] 04-28-2024 09:48-0500 Body height 172.72 cm [facility] 04-28-2024 09:48-0500 Body mass index (BMI) [Ratio] 27 kg/m2 [facility] 04-28-2024 09:48-0500 Body weight 80.73 kg [facility] 04-28-2024 09:48-0500 Diastolic blood pressure 76 mm[Hg] [facility] 04-28-2024 09:48-0500 Heart rate 61 /min [facility] 04-28-2024 09:48-0500 Respiratory rate 18 /min [facility] 04-28-2024 09:48-0500 SaO2% (BldA) [Mass fraction] 96 % [facility] 04-28-2024 09:48-0500 Systolic blood pressure 130 mm[Hg] [facility] 04-10-2024 12:11-0400 Body temperature 98.1 [degF] Doretha Harris MD Work Phone: [facility] 04-10-2024 12:11-0400 Diastolic blood pressure 58 mm[Hg] Doretha Harris MD Work Phone: [facility] 04-10-2024 12:11-0400 Heart rate 82 /min Doretha Harris MD Work Phone: [facility] 04-10-2024 12:11-0400 Respiratory rate 17 /min Doretha Harris MD Work Phone: [facility] 04-10-2024 12:11-0400 Systolic blood pressure 118 mm[Hg] Doretha Harris MD Work Phone: [facility] 04-10-2024 09:20-0400 SaO2% (BldA) [Mass fraction] 93 % Doretha Harris MD Work Phone: [facility] 04-09-2024 15:07-0400 Body temperature 37 Doretha Harris MD Work Phone: [facility] 04-09-2024 15:07-0400 SaO2% (BldA) [Mass fraction] 100 % Doretha Harris MD Work Phone: [facility] 04-09-2024 14:47-0400 Body temperature 37.0 degrees Celsius [facility] Comment on above: Performed By: #### [id number] #### TITUS Mercado ([id number]) [facility] ([facility]) [address] [place] [address] 04-09-2024 14:47-0400 SaO2% (BldA) [Mass fraction] 100 % [facility] Comment on above: Performed By: #### [id number] #### TITUS Mercado ([id number]) [facility] ([facility]) [address] [place] [address] 04-09-2024 12:11-0400 Body height 172.7 cm Doretha Harris MD Work Phone: [facility] 04-09-2024 12:11-0400 Body mass index (BMI) [Ratio] 27.12 kg/m2 Doretha Harris MD Work Phone: [facility] 04-09-2024 12:11-0400 Body weight 80.9 kg Doretha Harris MD Work Phone: [facility] 04-01-2024 10:47-0400 Body height 172.72 cm [facility] 04-01-2024 10:47-0400 Body mass index (BMI) [Ratio] 27.2 kg/m2 [facility] 04-01-2024 10:47-0400 Body weight 81.19 kg [facility] 04-01-2024 10:47-0400 Diastolic blood pressure 70 mm[Hg] [facility] 04-01-2024 10:47-0400 Heart rate 50 /min [facility] 04-01-2024 10:47-0400 Respiratory rate 16 /min [facility] 04-01-2024 10:47-0400 SaO2% (BldA) [Mass fraction] 99 % [facility] 04-01-2024 10:47-0400 Systolic blood pressure 120 mm[Hg] [facility] 01-31-2024 10:24-0400 Body height 172.72 cm [facility] 01-31-2024 10:24-0400 Body mass index (BMI) [Ratio] 27.3 kg/m2 [facility] 01-31-2024 10:24-0400 Body weight 81.64 kg [facility] 01-31-2024 10:24-0400 Diastolic blood pressure 70 mm[Hg] [facility] 01-31-2024 10:24-0400 Heart rate 75 /min [facility] 01-31-2024 10:24-0400 Respiratory rate 18 /min [facility] 01-31-2024 10:24-0400 SaO2% (BldA) [Mass fraction] 98 % [facility] 01-31-2024 10:24-0400 Systolic blood pressure 122 mm[Hg] [facility] 01-03-2024 13:36-0400 Body height 172.7 cm Doretha Harris MD Work Phone: [facility] 01-03-2024 13:36-0400 Body mass index (BMI) [Ratio] 27.43 kg/m2 Doretha Harris MD Work Phone: [facility] 01-03-2024 13:36-0400 Body weight 81.83 kg Doretha Harris MD Work Phone: [facility] 01-03-2024 13:36-0400 Diastolic blood pressure 80 mm[Hg] Doretha Harris MD Work Phone: [facility] 01-03-2024 13:36-0400 Heart rate 80 /min Doretha Harris MD Work Phone: [facility] 01-03-2024 13:36-0400 Systolic blood pressure 160 mm[Hg] Doretha Harris MD Work Phone: [facility] 12-13-2023 10:00-0400 Body mass index (BMI) [Ratio] 27.1 kg/m2 Helder Jack MD Work Phone: [facility] 12-13-2023 10:00-0400 Body temperature 97.5 [degF] Helder Jack MD Work Phone: [facility] 12-13-2023 10:00-0400 Body weight 80.83 kg Helder Jack MD Work Phone: [facility] 12-13-2023 10:00-0400 Diastolic blood pressure 59 mm[Hg] Helder Jack MD Work Phone: [facility] 12-13-2023 10:00-0400 Heart rate 92 /min Helder Jack MD Work Phone: [facility] 12-13-2023 10:00-0400 Respiratory rate 17 /min Helder Jack MD Work Phone: [facility] 12-13-2023 10:00-0400 SaO2% (BldA) [Mass fraction] 96 % Helder Jack MD Work Phone: [facility] 12-13-2023 10:00-0400 Systolic blood pressure 133 mm[Hg] Helder Jack MD Work Phone: [facility] 12-12-2023 13:08-0400 Body height 172.7 cm Solomon Narayanan PA-C Work Phone: [facility] 12-12-2023 13:08-0400 Body mass index (BMI) [Ratio] 26.91 kg/m2 Solomon Milks PA-C Work Phone: [facility] 12-12-2023 13:08-0400 Body weight 80.29 kg Solomon Milks PA-C Work Phone: [facility] 12-12-2023 13:08-0400 Diastolic blood pressure 70 mm[Hg] Solomon Milks PA-C Work Phone: [facility] 12-12-2023 13:08-0400 Heart rate 91 /min Solomon Milks PA-C Work Phone: [facility] 12-12-2023 13:08-0400 Systolic blood pressure 116 mm[Hg] Solomon Milks PA-C Work Phone: [facility] 12-03-2023 10:51-0400 Body height 172.72 cm DO Griselda Kuns Work Phone: [facility] 12-03-2023 10:51-0400 Body mass index (BMI) [Ratio] 26.1 kg/m2 DO Griselda Kuns Work Phone: [facility] 12-03-2023 10:51-0400 Body weight 78.01 kg DO Griselda Kuns Work Phone: [facility] 12-03-2023 10:51-0400 Diastolic blood pressure 82 mm[Hg] DO Griselda Kuns Work Phone: [facility] 12-03-2023 10:51-0400 Heart rate 97 /min DO Griselda Kuns Work Phone: [facility] 12-03-2023 10:51-0400 Respiratory rate 18 /min DO Griselda Kuns Work Phone: [facility] 12-03-2023 10:51-0400 SaO2% (BldA) [Mass fraction] 96 % DO Griselda Kuns Work Phone: [facility] 12-03-2023 10:51-0400 Systolic blood pressure 110 mm[Hg] DO Griselda Andreas Work Phone: [facility] 11-02-2023 09:49-0400 Body height 170.6 cm Racquel Cole MD Work Phone: [facility] 11-02-2023 09:49-0400 Body mass index (BMI) [Ratio] 27.38 kg/m2 Racquel Cole MD Work Phone: [facility] 11-02-2023 09:49-0400 Body temperature 97.7 [degF] Racquel Cole MD Work Phone: [facility] 11-02-2023 09:49-0400 Body weight 79.7 kg Racquel Cole MD Work Phone: [facility] 11-02-2023 09:49-0400 Diastolic blood pressure 76 mm[Hg] Racquel Cole MD Work Phone: [facility] 11-02-2023 09:49-0400 Heart rate 72 /min Racquel Cole MD Work Phone: [facility] 11-02-2023 09:49-0400 Respiratory rate 16 /min Racquel Cole MD Work Phone: [facility] 11-02-2023 09:49-0400 SaO2% (BldA) [Mass fraction] 99 % Racquel Cole MD Work Phone: [facility] 11-02-2023 09:49-0400 Systolic blood pressure 130 mm[Hg] Racquel Cole MD Work Phone: [facility] 10-29-2023 10:32-0400 Body height 172.72 cm DO Griselda Kuns Work Phone: [facility] 10-29-2023 10:32-0400 Body mass index (BMI) [Ratio] 26.6 kg/m2 DO Griselda [employer] Work Phone: [facility] 10-29-2023 10:32-0400 Body weight 79.37 kg DO Griselda Kuns Work Phone: [facility] 10-29-2023 10:32-0400 Diastolic blood pressure 82 mm[Hg] DO Griselda Kuns Work Phone: [facility] 10-29-2023 10:32-0400 Heart rate 71 /min DO Griselda Kuns Work Phone: [facility] 10-29-2023 10:32-0400 Respiratory rate 16 /min DO Griselda Kuns Work Phone: [facility] 10-29-2023 10:32-0400 SaO2% (BldA) [Mass fraction] 98 % DO Griselda Kuns Work Phone: [facility] 10-29-2023 10:32-0400 Systolic blood pressure 128 mm[Hg] DO Griselda Kuns Work Phone: [facility] 10-18-2023 09:02-0400 Diastolic blood pressure 68 mm[Hg] DO Griselda Kuns Work Phone: [facility] 10-18-2023 09:02-0400 Systolic blood pressure 132 mm[Hg] DO Griselda Kuns Work Phone: [facility] 10-18-2023 08:58-0400 Body height 172.72 cm DO Griselda Kuns Work Phone: [facility] 10-18-2023 08:58-0400 Body mass index (BMI) [Ratio] 26.6 kg/m2 DO Griselda Kuns Work Phone: [facility] 10-18-2023 08:58-0400 Body weight 79.37 kg DO Griselda Kuns Work Phone: [facility] 10-18-2023 08:58-0400 Heart rate 57 /min DO Griselda Kuns Work Phone: [facility] 10-18-2023 08:58-0400 Respiratory rate 18 /min DO Griselda Kuns Work Phone: [facility] 10-18-2023 08:58-0400 SaO2% (BldA) [Mass fraction] 98 % DO Griselda Kuns Work Phone: [facility] 10-05-2023 09:37-0400 Body height 172.2 cm Helder Jack MD Work Phone: [facility] 10-05-2023 09:37-0400 Body mass index (BMI) [Ratio] 26.25 kg/m2 Helder Jack MD Work Phone: [facility] 10-05-2023 09:37-0400 Body temperature 97.3 [degF] Helder Jack MD Work Phone: [facility] 10-05-2023 09:37-0400 Body weight 77.84 kg Helder Jack MD Work Phone: [facility] 10-05-2023 09:37-0400 Diastolic blood pressure 68 mm[Hg] Helder Jack MD Work Phone: [facility] 10-05-2023 09:37-0400 Heart rate 81 /min Helder Jack MD Work Phone: [facility] 10-05-2023 09:37-0400 Respiratory rate 16 /min Helder Jack MD Work Phone: [facility] 10-05-2023 09:37-0400 SaO2% (BldA) [Mass fraction] 99 % Helder Jack MD Work Phone: [facility] 10-05-2023 09:37-0400 Systolic blood pressure 116 mm[Hg] Helder Jack MD Work Phone: [facility] 09-05-2023 13:44-0400 Diastolic blood pressure 99 mm[Hg] DO Griselda Kuns Work Phone: [facility] 09-05-2023 13:44-0400 Systolic blood pressure 160 mm[Hg] DO Griselda Kuns Work Phone: [facility] 09-05-2023 13:41-0400 Body height 172.72 cm DO Griselda Kuns Work Phone: [facility] 09-05-2023 13:41-0400 Body mass index (BMI) [Ratio] 27.8 kg/m2 DO Griselda Kuns Work Phone: [facility] 09-05-2023 13:41-0400 Body weight 83 kg DO Griselda Kuns Work Phone: [facility] 09-05-2023 13:41-0400 Heart rate 66 /min DO Griselda Kuns Work Phone: [facility] 09-05-2023 13:41-0400 Respiratory rate 18 /min DO Griselda Kuns Work Phone: [facility] 09-05-2023 13:41-0400 SaO2% (BldA) [Mass fraction] 99 % DO Griselda Kuns Work Phone: [facility] 09-05-2023 11:58-0400 Body height 172.72 cm DO Griselda Kuns Work Phone: [facility] 09-05-2023 11:58-0400 Body mass index (BMI) [Ratio] 27.3 kg/m2 DO Griselda Kuns Work Phone: [facility] 09-05-2023 11:58-0400 Body temperature 97.8 [degF] DO Griselda Kuns Work Phone: [facility] 09-05-2023 11:58-0400 Body weight 81.64 kg DO Griselda Kuns Work Phone: [facility] 09-05-2023 11:58-0400 Diastolic blood pressure 92 mm[Hg] DO Griselda Kuns Work Phone: [facility] 09-05-2023 11:58-0400 Heart rate 71 /min DO Griselda Kuns Work Phone: [facility] 09-05-2023 11:58-0400 SaO2% (BldA) [Mass fraction] 96 % DO Griselda Kuns Work Phone: [facility] 09-05-2023 11:58-0400 Systolic blood pressure 160 mm[Hg] DO Griselda Kuns Work Phone: [facility] 08-15-2023 15:41-0500 Body height 172.72 cm DO Griselda Kuns Work Phone: [facility] 08-15-2023 15:41-0500 Body mass index (BMI) [Ratio] 28.1 kg/m2 DO Griselda Kuns Work Phone: [facility] 08-15-2023 15:41-0500 Body weight 84.08 kg DO Griselda Kuns Work Phone: [facility] 08-15-2023 15:41-0500 Diastolic blood pressure 72 mm[Hg] DO Griselda Kuns Work Phone: [facility] 08-15-2023 15:41-0500 Heart rate 62 /min DO Griselda Kuns Work Phone: [facility] 08-15-2023 15:41-0500 Respiratory rate 18 /min DO Griselda Kuns Work Phone: [facility] 08-15-2023 15:41-0500 SaO2% (BldA) [Mass fraction] 99 % DO Griselda Kuns Work Phone: [facility] 08-15-2023 15:41-0500 Systolic blood pressure 128 mm[Hg] DO Griselda Kuns Work Phone: [facility] 08-02-2023 13:11-0500 Body height 172.72 cm DO Griselda Kuns Work Phone: [facility] 08-02-2023 13:11-0500 Body mass index (BMI) [Ratio] 27.9 kg/m2 DO Griselda Kuns Work Phone: [facility] 08-02-2023 13:11-0500 Body weight 83.46 kg DO Griselda Kuns Work Phone: [facility] 08-02-2023 13:11-0500 Diastolic blood pressure 70 mm[Hg] DO Griselda Kuns Work Phone: [facility] 08-02-2023 13:11-0500 Heart rate 68 /min DO Griselda Kuns Work Phone: [facility] 08-02-2023 13:11-0500 Respiratory rate 16 /min DO Griselda Kuns Work Phone: [facility] 08-02-2023 13:11-0500 SaO2% (BldA) [Mass fraction] 97 % DO Griselda Kuns Work Phone: [facility] 08-02-2023 13:11-0500 Systolic blood pressure 130 mm[Hg] DO Griselda Kuns Work Phone: [facility] 07-02-2023 09:30-0500 Body height 172.72 cm Griselda [employer] Other [facility] 07-02-2023 09:30-0500 Body mass index (BMI) [Ratio] 28.28 kg/m2 Griselda [employer] Other [facility] Other 07-02-2023 09:30-0500 Body weight 84.37 kg Griselda Kuns Other [facility] Other 07-02-2023 09:30-0500 Body weight 84.36 kg DO Griselda Kuns Work Phone: [facility] 07-02-2023 09:30-0500 Diastolic blood pressure 92 mm[Hg] Griselda Kuns Other [facility] 07-02-2023 09:30-0500 Respiratory rate 16 /min Griselda Kuns Other [employer] Other 07-02-2023 09:30-0500 SaO2% (BldA) [Mass fraction] 97 % Griselda Kuns Other [facility] Other 07-02-2023 09:30-0500 Systolic blood pressure 160 mm[Hg] Griselda Kuns Other [facility] 05-31-2023 13:45-0500 Body height 172.72 cm Griselda Kuns Other [facility] 05-31-2023 13:45-0500 Body mass index (BMI) [Ratio] 27.37 kg/m2 Griselda Kuns Other [facility] Other 05-31-2023 13:45-0500 Body weight 81.65 kg Griselda Kuns Other [employer] Other 05-31-2023 13:45-0500 Body weight 81.64 kg DO Griselda Kuns Work Phone: [facility] 05-31-2023 13:45-0500 Diastolic blood pressure 80 mm[Hg] Griselda Kuns Other [facility] 05-31-2023 13:45-0500 Respiratory rate 18 /min Griselda Kuns Other [employer] Other 05-31-2023 13:45-0500 SaO2% (BldA) [Mass fraction] 98 % Griselda Kuns Other [employer] Other 05-31-2023 13:45-0500 Systolic blood pressure 120 mm[Hg] Griselda Hastings Other [facility] 05-30-2023 11:15-0500 Body height 172.72 cm Ruddy Ovalledoris Other [facility] 05-30-2023 11:15-0500 Body mass index (BMI) [Ratio] 27.52 kg/m2 Ruddy Ovalledoris Other [employer] Other 05-30-2023 11:15-0500 Body temperature 97.8 [degF] Ruddy Wes Other [facility] Other 05-30-2023 11:15-0500 Body weight 82.1 kg Ruddy Wes Other [facility] 05-30-2023 11:15-0500 SaO2% (BldA) [Mass fraction] 98 % Ruddy Ovalledoris Other [employer] Other 05-15-2023 13:20-0500 Body height 172.72 cm Lilliam Cason Other [facility] 05-15-2023 13:20-0500 Body mass index (BMI) [Ratio] 27.52 kg/m2 Lilliam Grecooroge Other [facility] Other 05-15-2023 13:20-0500 Body weight 82.1 kg Lilliam Kamla Other [facility] 05-15-2023 13:20-0500 Diastolic blood pressure 84 mm[Hg] Lilliam Grecooroge Other [facility] 05-15-2023 13:20-0500 Respiratory rate 18 /min Lilliam Cason Other [employer] Other 05-15-2023 13:20-0500 SaO2% (BldA) [Mass fraction] 98 % Lilliam Cason Other [employer] Other 05-15-2023 13:20-0500 Systolic blood pressure 142 mm[Hg] Lilliam Cason Other [facility] 05-07-2023 13:16-0500 Diastolic blood pressure 78 mm[Hg] DO Griselda Kuns Work Phone: [facility] 05-07-2023 13:16-0500 Heart rate 75 /min DO Griselda Kuns Work Phone: [facility] 05-07-2023 13:16-0500 Respiratory rate 16 /min DO Griselda Kuns Work Phone: [facility] 05-07-2023 13:16-0500 SaO2% (BldA) [Mass fraction] 96 % DO Griselda Kuns Work Phone: [facility] 05-07-2023 13:16-0500 Systolic blood pressure 135 mm[Hg] DO Griselda Kuns Work Phone: [facility] 05-07-2023 10:30-0500 Inhaled oxygen flow rate 3 L/min DO Griselda Kuns Work Phone: [facility] 05-07-2023 08:29-0500 Body height 172.72 cm DO Griselda Kuns Work Phone: [facility] 05-07-2023 08:29-0500 Body weight 79.37 kg DO Griselda Kuns Work Phone: [facility] 05-03-2023 09:15-0500 Body height 172.72 cm Ruddy Harvey Other [employer] Other 05-03-2023 09:15-0500 Body mass index (BMI) [Ratio] 27.06 kg/m2 Ruddy Ovalledoris Other [employer] Other 05-03-2023 09:15-0500 Body temperature 97.8 [degF] Ruddy Wes Other [employer] Other 05-03-2023 09:15-0500 Body weight 80.74 kg Ruddy Wes Other [employer] Other 05-03-2023 09:15-0500 Diastolic blood pressure 78 mm[Hg] Ruddy Harvey Other [employer] Other 05-03-2023 09:15-0500 SaO2% (BldA) [Mass fraction] 97 % Ruddy Wes Other [employer] Other 05-03-2023 09:15-0500 Systolic blood pressure 146 mm[Hg] Ruddy Wes Other [employer] Other 05-01-2023 10:30-0500 Body height 172.72 cm Griseldakeith Mendezs Other [employer] Other 05-01-2023 10:30-0500 Body mass index (BMI) [Ratio] 27.06 kg/m2 Griselda [employer] Other [facility] Other 05-01-2023 10:30-0500 Body weight 80.74 kg Griselda [employer] Other [facility] Other 05-01-2023 10:30-0500 Diastolic blood pressure 80 mm[Hg] Griselda [employer] Other [facility] Other 05-01-2023 10:30-0500 Respiratory rate 18 /min Griselda Kuns Other [employer] Other 05-01-2023 10:30-0500 SaO2% (BldA) [Mass fraction] 96 % Griselda Kuns Other [employer] Other 05-01-2023 10:30-0500 Systolic blood pressure 144 mm[Hg] Griselda Kuns Other [employer] Other 04-11-2023 10:40-0400 Body height 172.72 cm Lilliam Kamla Other [employer] Other 04-11-2023 10:40-0400 Body mass index (BMI) [Ratio] 26.67 kg/m2 Lilliam Kamla Other [employer] Other 04-11-2023 10:40-0400 Body weight 79.56 kg Lilliam Kamla Other [employer] Other 04-11-2023 10:40-0400 Diastolic blood pressure 80 mm[Hg] Lilliam Kamla Other [employer] Other 04-11-2023 10:40-0400 SaO2% (BldA) [Mass fraction] 96 % Lilliam Kamla Other [employer] Other 04-11-2023 10:40-0400 Systolic blood pressure 148 mm[Hg] Lilliam Kamla Other [employer] Other 03-21-2023 02:42-0400 Diastolic blood pressure 98 mm[Hg] DO Griselda Kuns Work Phone: [facility] 03-21-2023 02:42-0400 Heart rate 72 /min DO Griselda Kuns Work Phone: [facility] 03-21-2023 02:42-0400 Respiratory rate 16 /min DO Griselda Kuns Work Phone: [facility] 03-21-2023 02:42-0400 SaO2% (BldA) [Mass fraction] 97 % DO Griselda Kuns Work Phone: [facility] 03-21-2023 02:42-0400 Systolic blood pressure 170 mm[Hg] DO Griselda Kuns Work Phone: [facility] 03-21-2023 00:12-0400 Body height 172.72 cm DO Griselda Kuns Work Phone: [facility] 03-21-2023 00:12-0400 Body temperature 98 [degF] DO Griselda Kuns Work Phone: [facility] 03-21-2023 00:12-0400 Body weight 79.37 kg DO Griselda Kuns Work Phone: [facility] 03-15-2023 10:30-0400 Body height 172.72 cm Griselda [employer] Other [facility] Other 03-15-2023 10:30-0400 Body mass index (BMI) [Ratio] 26.76 kg/m2 Griselda [employer] Other [facility] Other 03-15-2023 10:30-0400 Body weight 79.83 kg Griselda [employer] Other [facility] Other 03-15-2023 10:30-0400 Diastolic blood pressure 86 mm[Hg] F[facility] Other [employer] Other 03-15-2023 10:30-0400 Respiratory rate 16 /min Griselda Kuns Other [employer] Other 03-15-2023 10:30-0400 SaO2% (BldA) [Mass fraction] 97 % Griselda Kuns Other [employer] Other 03-15-2023 10:30-0400 Systolic blood pressure 174 mm[Hg] Griselda Kuns Other [employer] Other 03-08-2023 10:00-0400 Body height 172.72 cm Griselda Kuns Other [employer] Other 03-08-2023 10:00-0400 Body mass index (BMI) [Ratio] 27.18 kg/m2 Griselda Kuns Other [employer] Other 03-08-2023 10:00-0400 Body weight 81.1 kg Griselda Kuns Other [employer] Other 03-08-2023 10:00-0400 Diastolic blood pressure 82 mm[Hg] Griselda Kuns Other [employer] Other 03-08-2023 10:00-0400 Respiratory rate 16 /min Griselda Kuns Other [employer] Other 03-08-2023 10:00-0400 SaO2% (BldA) [Mass fraction] 96 % Griselda Kuns Other [employer] Other 03-08-2023 10:00-0400 Systolic blood pressure 118 mm[Hg] Griselda Kuns Other [employer] Other 02-26-2023 14:13-0400 Body height 172.72 cm DO Griselda Kuns Work Phone: [facility] 02-26-2023 14:13-0400 Body temperature 98 [degF] DO Griselda Kuns Work Phone: [facility] 02-26-2023 14:13-0400 Body weight 78.6 kg DO Griselda Kuns Work Phone: [facility] 02-26-2023 14:13-0400 Diastolic blood pressure 77 mm[Hg] DO Griselda Kuns Work Phone: [facility] 02-26-2023 14:13-0400 Heart rate 56 /min DO Griselda Kuns Work Phone: [facility] 02-26-2023 14:13-0400 Respiratory rate 18 /min DO Griselda Kuns Work Phone: [facility] 02-26-2023 14:13-0400 SaO2% (BldA) [Mass fraction] 96 % DO Griselda Kuns Work Phone: [facility] 02-26-2023 14:13-0400 Systolic blood pressure 142 mm[Hg] DO Griselda Kuns Work Phone: [facility] 12-05-2022 10:15-0400 Body height 172.72 cm FRSs Other [facility] Other 12-05-2022 10:15-0400 Body mass index (BMI) [Ratio] 25.85 kg/m2 [employer] Other [facility] Other 12-05-2022 10:15-0400 Body weight 77.11 kg Griselda [employer] Other [facility] Other 12-05-2022 10:15-0400 Diastolic blood pressure 80 mm[Hg] Griselda Hastings Other [employer] Other 12-05-2022 10:15-0400 Respiratory rate 16 /min Griselda Hastings Other [employer] Other 12-05-2022 10:15-0400 SaO2% (BldA) [Mass fraction] 96 % Griselda Hastings Other [employer] Other 12-05-2022 10:15-0400 Systolic blood pressure 140 mm[Hg] Griselda Mendezs Other [employer] Other 09-13-2022 10:57-0400 Body height 170.6 cm Kelly Moorek PA-C Work Phone: [facility] 09-13-2022 10:57-0400 Body temperature 97.39 [degF] Kelly Moorek PA-C Work Phone: [facility] 09-13-2022 10:57-0400 Body weight 77.34 kg Kelly Moorek PA-C Work Phone: [facility] 09-13-2022 10:57-0400 Diastolic blood pressure 61 mm[Hg] Kelly Moorek PA-C Work Phone: [facility] 09-13-2022 10:57-0400 Heart rate 70 /min Kelly Moorek PA-C Work Phone: [facility] 09-13-2022 10:57-0400 Respiratory rate 18 /min Kelly Moorek PA-C Work Phone: [facility] 09-13-2022 10:57-0400 SaO2% (BldA) [Mass fraction] 100 % Kelly Moorek PA-C Work Phone: [facility] 09-13-2022 10:57-0400 Systolic blood pressure 133 mm[Hg] Kelly Perez PA-C Work Phone: [facility] 08-31-2022 11:15-0400 Body height 172.72 cm Griselda Kuns Other [employer] Other 08-31-2022 11:15-0400 Body mass index (BMI) [Ratio] 26.79 kg/m2 Griselda Kuns Other [employer] Other 08-31-2022 11:15-0400 Body weight 79.92 kg Griselda Kuns Other [employer] Other 08-31-2022 11:15-0400 Diastolic blood pressure 78 mm[Hg] Griselda Kuns Other [employer] Other 08-31-2022 11:15-0400 Respiratory rate 16 /min Griselda Kuns Other [employer] Other 08-31-2022 11:15-0400 SaO2% (BldA) [Mass fraction] 98 % Griselda Kuns Other [employer] Other 08-31-2022 11:15-0400 Systolic blood pressure 138 mm[Hg] Griselda Kuns Other [employer] Other 08-01-2022 10:30-0500 Body height 172.72 cm Griselda Kuns Other [employer] Other 08-01-2022 10:30-0500 Body mass index (BMI) [Ratio] 27.27 kg/m2 Griselda Kuns Other [employer] Other 08-01-2022 10:30-0500 Body weight 81.38 kg Griselda Kuns Other [employer] Other 08-01-2022 10:30-0500 Diastolic blood pressure 82 mm[Hg] Griselda Kuns Other [facility] [employer] Other 08-01-2022 10:30-0500 Respiratory rate 16 /min Griselda Kuns Other [employer] Other 08-01-2022 10:30-0500 SaO2% (BldA) [Mass fraction] 99 % Griselda Kuns Other [facility] Other 08-01-2022 10:30-0500 Systolic blood pressure 146 mm[Hg] Griselda Kuns Other [facility] Other 07-17-2022 09:45-0500 Diastolic blood pressure 98 mm[Hg] DO Griselda Kuns Work Phone: [facility] 07-17-2022 09:45-0500 Heart rate 69 /min DO Griselda Kuns Work Phone: [facility] 07-17-2022 09:45-0500 Respiratory rate 16 /min DO Griselda Kuns Work Phone: [facility] 07-17-2022 09:45-0500 SaO2% (BldA) [Mass fraction] 99 % DO Griselda Kuns Work Phone: [facility] 07-17-2022 09:45-0500 Systolic blood pressure 144 mm[Hg] DO Griselda Kuns Work Phone: [facility] 07-17-2022 07:58-0500 Body height 172.72 cm DO Griselda Kuns Work Phone: [facility] 07-17-2022 07:58-0500 Body weight 79.37 kg DO Griselda Kuns Work Phone: [facility] 06-28-2022 10:20-0500 Body height 172.72 cm Trish Blades Other [employer] Other 06-28-2022 10:20-0500 Body mass index (BMI) [Ratio] 26.67 kg/m2 Trish Blades Other [employer] Other 06-28-2022 10:20-0500 Body weight 79.56 kg Trish Blades Other [employer] Other 06-28-2022 10:20-0500 Diastolic blood pressure 80 mm[Hg] Trish Blades Other [employer] Other 06-28-2022 10:20-0500 Systolic blood pressure 140 mm[Hg] Trish Blades Other [employer] Other 05-26-2022 13:30-0500 Body height 172.72 cm Griselda Kuns Other [employer] Other 05-26-2022 13:30-0500 Body mass index (BMI) [Ratio] 26.7 kg/m2 Griselda Kuns Other [employer] Other 05-26-2022 13:30-0500 Body weight 79.65 kg Griselda Kuns Other [employer] Other 05-26-2022 13:30-0500 Diastolic blood pressure 82 mm[Hg] Griselda Kuns Other [employer] Other 05-26-2022 13:30-0500 Respiratory rate 18 /min Griselda Kuns Other [facility] Other 05-26-2022 13:30-0500 SaO2% (BldA) [Mass fraction] 98 % Griselda Kuns Other [facility] Other 05-26-2022 13:30-0500 Systolic blood pressure 144 mm[Hg] Griselda Kuns Other [facility] Other 04-17-2022 00:30-0400 Diastolic blood pressure 64 mm[Hg] DO Griselda Kuns Work Phone: [facility] 04-17-2022 00:30-0400 Heart rate 78 /min DO Griselda Kuns Work Phone: [facility] 04-17-2022 00:30-0400 Respiratory rate 16 /min DO Griselda Kuns Work Phone: [facility] 04-17-2022 00:30-0400 SaO2% (BldA) [Mass fraction] 97 % DO Griselda Kuns Work Phone: [facility] 04-17-2022 00:30-0400 Systolic blood pressure 135 mm[Hg] DO Griselda Kuns Work Phone: [facility] 04-16-2022 19:45-0400 Body height 172.72 cm DO Griselda Kuns Work Phone: [facility] 04-16-2022 19:45-0400 Body temperature 98.1 [degF] DO Griselda Kuns Work Phone: [facility] 04-16-2022 19:45-0400 Body weight 78 kg DO Griselda Kuns Work Phone: [facility] 04-06-2022 16:31-0400 Body height 172.72 cm DO Griselda Kuns Work Phone: [facility] 04-06-2022 16:31-0400 Body temperature 98.1 [degF] DO Griselda Kuns Work Phone: [facility] 04-06-2022 16:31-0400 Body weight 79.37 kg DO Griselda Kuns Work Phone: [facility] 04-06-2022 16:31-0400 Diastolic blood pressure 108 mm[Hg] DO Griselda Kuns Work Phone: [facility] 04-06-2022 16:31-0400 Heart rate 95 /min DO Griselda Kuns Work Phone: [facility] 04-06-2022 16:31-0400 Respiratory rate 19 /min DO Griselda Kuns Work Phone: [facility] 04-06-2022 16:31-0400 SaO2% (BldA) [Mass fraction] 97 % DO Griselda Kuns Work Phone: [facility] 04-06-2022 16:31-0400 Systolic blood pressure 138 mm[Hg] DO Grisedla Kuns Work Phone: [facility] 03-16-2022 13:30-0400 Body height 172.72 cm Griseldakeith Mendezs Other [employer] Other 03-16-2022 13:30-0400 Body mass index (BMI) [Ratio] 26.91 kg/m2 Griseldakeith Mendezs Other [employer] Other 03-16-2022 13:30-0400 Body weight 80.29 kg Griselda [employer] Other [facility] Other 03-16-2022 13:30-0400 Diastolic blood pressure 80 mm[Hg] Griselda [employer] Other [facility] Other 03-16-2022 13:30-0400 Respiratory rate 16 /min Griselda Kuns Other [employer] Other 03-16-2022 13:30-0400 SaO2% (BldA) [Mass fraction] 97 % Griselda Kuns Other [employer] Other 03-16-2022 13:30-0400 Systolic blood pressure 140 mm[Hg] Griselda Kuns Other [employer] Other 01-30-2022 12:00-0400 Body height 172.72 cm Griselda Kuns Other [employer] Other 01-30-2022 12:00-0400 Body mass index (BMI) [Ratio] 26.3 kg/m2 Griselda Kuns Other [employer] Other 01-30-2022 12:00-0400 Body weight 78.47 kg Griselda Kuns Other [employer] Other 01-30-2022 12:00-0400 Diastolic blood pressure 82 mm[Hg] Griselda Kuns Other [employer] Other 01-30-2022 12:00-0400 Respiratory rate 16 /min Griselda Kuns Other [employer] Other 01-30-2022 12:00-0400 SaO2% (BldA) [Mass fraction] 99 % Griselda Kuns Other [employer] Other 01-30-2022 12:00-0400 Systolic blood pressure 146 mm[Hg] Griselda Kuns Other [employer] Other 12-26-2021 11:00-0400 Body height 172.72 cm Griselda Kuns Other [employer] Other 12-26-2021 11:00-0400 Body mass index (BMI) [Ratio] 26.61 kg/m2 Griselda Kuns Other [employer] Other 12-26-2021 11:00-0400 Body weight 79.38 kg Griselda Kuns Other [employer] Other 12-26-2021 11:00-0400 Diastolic blood pressure 80 mm[Hg] Griselda Kuns Other [employer] Other 12-26-2021 11:00-0400 Respiratory rate 16 /min Griselda Kuns Other [employer] Other 12-26-2021 11:00-0400 SaO2% (BldA) [Mass fraction] 96 % Griselda Kuns Other [employer] Other 12-26-2021 11:00-0400 Systolic blood pressure 166 mm[Hg] Griselda Kuns Other [employer] Other 12-05-2021 10:15-0400 Body height 172.72 cm Griselda Kuns Other [employer] Other 12-05-2021 10:15-0400 Body mass index (BMI) [Ratio] 269.71 kg/m2 Griselda Kuns Other [employer] Other 12-05-2021 10:15-0400 Body weight 804.69 kg Griselda Kuns Other [employer] Other 12-05-2021 10:15-0400 Diastolic blood pressure 72 mm[Hg] Griselda Kuns Other [employer] Other 12-05-2021 10:15-0400 Respiratory rate 18 /min Griselda Kuns Other [employer] Other 12-05-2021 10:15-0400 SaO2% (BldA) [Mass fraction] 99 % Griselda Kuns Other [employer] Other 12-05-2021 10:15-0400 Systolic blood pressure 130 mm[Hg] Griselda Kuns Other [employer] Other 11-08-2021 11:15-0400 Body height 172.72 cm Griselda Kuns Other [employer] Other 11-08-2021 11:15-0400 Body mass index (BMI) [Ratio] 27.06 kg/m2 Griselda Kuns Other [employer] Other 11-08-2021 11:15-0400 Body weight 80.74 kg Griselda Kuns Other [employer] Other 11-08-2021 11:15-0400 Diastolic blood pressure 80 mm[Hg] Griselda Kuns Other [employer] Other 11-08-2021 11:15-0400 Respiratory rate 16 /min Griselda Kuns Other [employer] Other 11-08-2021 11:15-0400 SaO2% (BldA) [Mass fraction] 97 % Griselda Kuns Other [facility] Other 11-08-2021 11:15-0400 Systolic blood pressure 128 mm[Hg] Griselda Andrearoge Other [facility] Other 11-03-2021 09:38-0400 Body height 170.51 cm Griselda Driver Darling Work Phone: [facility] Work Phone: 11-03-2021 09:38-0400 Body mass index (BMI) [Ratio] 27.05 kg/m2 Griselda Hastings Work Phone: [facility] Work Phone: 11-03-2021 09:38-0400 Body surface area Derived from formula 1.91 m2 Griselda Hastings Work Phone: [facility] Work Phone: 11-03-2021 09:38-0400 Body temperature 98.2 [degF] Griselda Neisha Hastings Work Phone: [facility] Work Phone: 11-03-2021 09:38-0400 Body weight 78.65 kg Griselda Neisha Hastings Work Phone: [facility] Work Phone: 11-03-2021 09:38-0400 Diastolic blood pressure 67 mm[Hg] Griselda Hastings Work Phone: [facility] Work Phone: 11-03-2021 09:38-0400 Heart rate 63 /min Griselda Hastings Work Phone: [facility] Work Phone: 11-03-2021 09:38-0400 Respiratory rate 16 /min Griselda R Kuns Work Phone: [facility] Work Phone: 11-03-2021 09:38-0400 SaO2% (BldA) [Mass fraction] 99 % Griselda R Andreas Work Phone: [facility] Work Phone: 11-03-2021 09:38-0400 Systolic blood pressure 147 mm[Hg] Griselda R Kuns Work Phone: [facility] Work Phone: 11-03-2021 09:38-0400 7 1 Griselda R Kuns Work Phone: [facility] Work Phone: Comment on above: [employer] 11-01-2021 13:30-0400 Body height 172.72 cm Griselda Andreas Other [facility] Other 11-01-2021 13:30-0400 Body mass index (BMI) [Ratio] 26.61 kg/m2 Griselda Andreas Other [employer] Other 11-01-2021 13:30-0400 Body weight 79.38 kg Griselda Andreas Other [employer] Other 11-01-2021 13:30-0400 Diastolic blood pressure 78 mm[Hg] Griselda Andreas Other [employer] Other 11-01-2021 13:30-0400 Respiratory rate 18 /min Griselda Andreas Other [employer] Other 11-01-2021 13:30-0400 SaO2% (BldA) [Mass fraction] 99 % Griselda Andreas Other [employer] Other 11-01-2021 13:30-0400 Systolic blood pressure 140 mm[Hg] Griselda Hastings Other [employer] Other 10-24-2021 09:45-0400 Body height 172.72 cm Sheng Schneider Other [employer] Other 10-24-2021 09:45-0400 Body mass index (BMI) [Ratio] 26.76 kg/m2 Sheng Schneider Other [employer] Other 10-24-2021 09:45-0400 Body weight 79.83 kg Sheng Ibarrajonroge Other [employer] Other 10-13-2021 09:50-0400 Body height 172 cm Racquel Cole MD Work Phone: [facility] 10-13-2021 09:50-0400 Body temperature 97.5 [degF] Racquel Cole MD Work Phone: [facility] 10-13-2021 09:50-0400 Body weight 81.28 kg Racquel Cole MD Work Phone: [facility] 10-13-2021 09:50-0400 Diastolic blood pressure 77 mm[Hg] Racquel Cole MD Work Phone: [facility] 10-13-2021 09:50-0400 Heart rate 70 /min Racquel Cole MD Work Phone: [facility] 10-13-2021 09:50-0400 Respiratory rate 16 /min Racquel Cole MD Work Phone: [facility] 10-13-2021 09:50-0400 SaO2% (BldA) [Mass fraction] 99 % Racquel Cole MD Work Phone: [facility] 10-13-2021 09:50-0400 Systolic blood pressure 152 mm[Hg] Racquel Cole MD Work Phone: [facility] 09-19-2021 10:45-0400 Body height 172.72 cm Griselda Kuns Other [employer] Other 09-19-2021 10:45-0400 Body mass index (BMI) [Ratio] 26.15 kg/m2 Griselda Kuns Other [employer] Other 09-19-2021 10:45-0400 Body weight 78.02 kg Griselda Kuns Other [employer] Other 09-19-2021 10:45-0400 Diastolic blood pressure 80 mm[Hg] Griselda Kuns Other [employer] Other 09-19-2021 10:45-0400 Respiratory rate 18 /min Griselda Kuns Other [employer] Other 09-19-2021 10:45-0400 SaO2% (BldA) [Mass fraction] 99 % Griselda Kuns Other [employer] Other 09-19-2021 10:45-0400 Systolic blood pressure 140 mm[Hg] Griselda Kuns Other [employer] Other 06-30-2021 13:30-0500 Body height 172.72 cm Griselda Kuns Other [employer] Other 04-14-2021 08:45-0400 Body height 172.72 cm Griselda Kuns Other [employer] Other 04-14-2021 08:45-0400 Body mass index (BMI) [Ratio] 25.85 kg/m2 Griselda Hastings Other [employer] Other 04-14-2021 08:45-0400 Body weight 77.11 kg Griselda Hastings Other [employer] Other 04-14-2021 08:45-0400 Diastolic blood pressure 80 mm[Hg] Griseldakeith Mendezs Other [employer] Other 04-14-2021 08:45-0400 Respiratory rate 16 /min Griselda Hastings Other [employer] Other 04-14-2021 08:45-0400 SaO2% (BldA) [Mass fraction] 99 % Griselda Hastings Other [employer] Other 04-14-2021 08:45-0400 Systolic blood pressure 124 mm[Hg] Griselda Hastings Other [employer]visor Other Encounters Encounter Date Encounter Type Care Provider Facility Start: 04-01-2025 End: 04-01-2025 ambulatory Griselda Hastings DO Work Phone: [facility] Work Phone: Start: 04-01-2025 End: 04-01-2025 Patient encounter procedure Griselda Hastings DO -[facility] [place] Work Phone: Start: 03-24-2025 End: 03-24-2025 ambulatory [facility] Start: 03-18-2025 End: 03-18-2025 Lorenza flowspeggy Cadena MD Work Phone: [facility] Start: 03-18-2025 End: 03-18-2025 Bamboo flowsheet Oziel Cadena MD Work Phone: [facility] Start: 03-18-2025 End: 03-18-2025 ambulatory OZIEL CADENA Not Available Comment on above: Other nerve root and plexus disorders (Primary Dx); Acute pain of left shoulder; Acute pain of right shoulder Start: 02-26-2025 End: 02-26-2025 Patient encounter procedure Griselda Hastings DO -Ultrasound [facility] Work Phone: Start: 02-26-2025 End: 02-26-2025 ambulatory Griseldakeith Mendezs DO Work Phone: [facility] Work Phone: Start: 02-19-2025 Patient encounter procedure Griselda Mendezs DO Work Phone: [facility] Start: 02-19-2025 End: 02-19-2025 ambulatory Griselda Mendezs DO Work Phone: [facility] Work Phone: Start: 02-19-2025 End: 02-19-2025 Patient encounter procedure Griselda Hastings DO -[facility] [place] Work Phone: Start: 02-18-2025 Non-patient / Non-visit Mayra Arias DO -[facility] Work Phone: Start: 02-13-2025 End: 02-13-20[facility] Start: 02-09-2025 End: 02-09-2025 ambulatory Sarina Ramsey MD Facility:[facility] Start: 02-04-2025 End: 02-04-2025 Clinical Support Oziel Cadena MD Work Phone: [facility] Comment on above: Acute pain of right shoulder (Primary Dx); Nerve root and plexus disorder, unspecified; Acute pain of left shoulder Start: 02-04-2025 End: 02-04-2025 Bamboo flowsheet Oziel Cadena MD Work Phone: [facility] Start: 02-04-2025 End: 02-04-2025 Bamboo flowsheet Oziel Cadena MD Work Phone: [facility] Start: 01-27-2025 Non-patient / Non-visit Sarina daniels MD -[facility] Work Phone: Start: 01-26-2025 End: 01-26-2025 [facility]ulatory [facility] Start: 01-12-2025 End: 01-12-2025 ambulatory Griseldakeith Mendezroge JOSÉ Work Phone: [facility] Work Phone: Start: 01-12-2025 End: 01-12-2025 Patient encounter procedure Solomon Mullins APRN -[facility] Work Phone: Start: 01-08-2025 End: [...] Bamboo flowsheet Oziel Cadena MD Work Phone: [facility] Start: 12-24-2024 End: 12-24-2024 Bamboo flowsheet Oziel Cadena MD Work Phone: [facility] Start: 12-24-2024 End: 12-24-2024 Clinical Support Oziel Cadena MD Work Phone: [facility] Comment on above: Nerve root and plexu s disorder, unspecified (Primary Dx); Acute pain of left shoulder Start: 2024 End: 2024 Patient encounter procedure Griselda Kuns DO Work Phone: [facility] Start: 2024 End: 2024 ambulatory Griselda Kuns DO Work Phone: [facility] Work Phone: Start: 11-19-2024 End: 11-19-2024 ambulatory Griselda Kuns DO Work Phone: [facility] Work Phone: Start: 11-19-2024 End: 11-19-2024 Patient encounter procedure Griselda Kuns DO Work Phone: [facility] Work Phone: Start: 11-17-2024 End: 11-17-2024 ambulatory Griselda Kuns DO Work Phone: [facility] Work Phone: Start: 11-17-2024 End: 11-17-2024 Patient encounter procedure Griselda Kuns DO Work Phone: [facility] Work Phone: Start: 11-12-2024 End: 11-12-2024 Bamboo flowsheet Oziel Cadena MD Work Phone: [facility] Start: 11-12-2024 End: 11-12-2024 Bamboo flowsheet Oziel Cadena MD Work Phone: [facility] Start: 11-12-2024 End: 11-12-2024 Clinical Support Oziel Cadena MD Work Phone: [facility] Comment on above: Nerve root and plexu s disorder, unspecified (Primary Dx); Acute pain of left shoulder Start: 11-07-2024 End: 11-07-2024 ambulatory RACQUEL COLE Facility:[facility] Start: 11-05-2024 Non-patient / Non-visit Griselda Kuns DO Work Phone: [facility] Work Phone: Start: 11-05-2024 End: 11-05-2024 Admission to same day surgery center Griseldakeith Mendezs DO Work Phone: [facility]-Digestive Health Work Phone: Start: 11-05-2024 End: 11-05-2024 ambulatory Imad Asaad Facility:[facility] Start: 11-03-2024 End: 11-03-2024 Telephone encounter Racquel Cole MD Work Phone: Hematology/Oncology Comment on above: Orders Start: 11-03-2024 Non-patient / Non-visit Griselda Andreas DO Work Phone: [facility] Work Phone: Start: 11-03-2024 ambulatory RACQUEL COLE Facilit y:[facility] Start: 11-03-2024 End: 11-03-2024 Subsequent hospital visit by physician Arrival Time Radiology Work Phone: Radiology [facility] Comment on above: 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] Start: 10-27-2024 End: 10-27-2024 ambulatory Griselda Kuns DO Work Phone: [facility] Work Phone: Start: 10-27-2024 End: 10-27-2024 Patient encounter procedure Griselda Kuns DO Work Phone: [facility] Work Phone: Start: 10-21-2024 End: 10-21-2024 Subsequent hospital visit by physician Rad External Film EF RAD EXTERNAL FILM VIRTUAL Comment on above: Arrived Start: 10-21-2024 End: 10-21-2024 ambulatory [facility] Start: 10-13-2024 End: 10-13-2024 Office outpatient visit 40 minutes Doretha Harris MD Work Phone: [facility] Comment on above: Status post cervical spinal fusion (Primary Dx) Start: 10-13-2024 End: 10-13-2024 ambulatory [facility] Ambulatory Start: 10-10-2024 End: 10-10-2024 ambulatory Griselda Kuns DO Work Phone: [facility] Work Phone: Start: 10-10-2024 End: 10-10-2024 Patient encounter procedure Griselda Kuns DO Work Phone: [facility] Work Phone: Start: 10-10-2024 End: 10-10-2024 Patient encounter procedure Griselda Kuns DO Work Phone: [facility] Work Phone: Start: 10-10-2024 End: 10-10-2024 ambulatory Griselda Kuns DO Work Phone: [facility] Work Phone: Start: 10-07-2024 End: 10-07-2024 Patient encounter procedure Griselda Kuns DO Work Phone: [facility] Work Phone: Start: 10-07-2024 End: 10-07-2024 ambulatory Griselda Kuns DO Work Phone: [facility] Work Phone: Start: 10-06-2024 End: 10-06-2024 Emergency department patient visit Griselda Kuns DO Work Phone: [facility]-Emergency Room Work Phone: Start: 09-22-2024 End: 09-22-2024 ambulatory Sarina Ramsey MD Facility:[facility] Start: 09-20-2024 End: 09-20-2024 Emergency department patient visit Griselda Andreas DO Work Phone: [facility]-Emergency Room Work Phone: Start: 09-15-2024 End: 09-15-2024 ambulatory Sarina Ramsey MD Facility:[facility] Start: 09-11-2024 End: 09-11-2024 Bamboo flowsheet Oziel Cadena MD Work Phone: [facility] Start: 09-11-2024 End: 09-11-2024 Bamboo flowsheet Oziel Cadena MD Work Phone: [facility] Start: 09-11-2024 End: 09-11-2024 Clinical Support Oziel Cadena MD Work Phone: [facility] Comment on above: Nerve root and plexu s disorder, unspecified (Primary Dx) Start: 09-11-2024 End: 09-11-2024 Patient encounter procedure Griselda Kuns DO Work Phone: [facility] Surg Work Phone: Start: 09-11-2024 End: 09-11-2024 ambulatory Griselda Kuns DO Work Phone: [facility] Work Phone: Start: 07-31-2024 End: 07-31-2024 Bamboo flowsheet Oziel Cadena MD Work Phone: [facility] Start: 07-31-2024 End: 07-31-2024 Bamboo flowsheet Oziel Cadena MD Work Phone: [facility] Start: 07-31-2024 End: 07-31-2024 Clinical Support Oziel Cadena MD Work Phone: [facility] Comment on above: Nerve root and plexu s disorder, unspecified (Primary Dx) Start: 07-28-2024 End: 07-28-2024 ambulatory Sarina Ramsey MD Facility: [facility] Start: 07-07-2024 End: 07-07-2024 ambulatory Sarina Ramsey MD Facility: [facility] Start: 07-03-2024 End: 07-03-2024 ambulatory Griselda Hastings DO Work Phone: [facility] Work Phone: Start: 07-03-2024 End: 07-03-2024 Patient encounter procedure Griselda Hastings DO Work Phone: [facility] [place] Work Phone: Start: 07-02-2024 End: 07-02-2024 Bamboo flowsheet Oziel Cadena MD Work Phone: [facility] NE[facility] Start: 07-02-2024 End: 07-02-2024 Bamboo flowsheet Oziel Cadena MD Work Phone: [facility] Start: 07-02-2024 End: 07-02-2024 Clinical Support Oziel Cadena MD Work Phone: [facility] Comment on above: Nerve root and plexu s disorder, unspecified (Primary Dx) Start: 06-30-2024 End: 06-30-2024 Postop follow up visit related to original px Doretha Harris MD Work Phone: [facility] Comment on above: Status post cervical spinal fusion (Primary Dx) Start: 06-30-2024 End: 06-30-2024 ambulatory [facility] Ambulatory Start: 06-24-2024 End: 06-24-2024 Patient encounter procedure Griseldakeith Mendezs DO Work Phone: [facility] Work Phone: Start: 06-24-2024 End: 06-24-2024 ambulatory Griseldakeith Mendezs DO Work Phone: [facility] Work Phone: Start: 05-21-2024 End: 05-21-2024 Bamboo flowsheet Oziel Cadena MD Work Phone: [facility] Start: 05-21-2024 End: 05-21-2024 Bamboo flowsheet Oziel Cadena MD Work Phone: [facility] Start: 05-21-2024 End: 05-21-2024 Clinical Support Oziel Cadena MD Work Phone: [facility] Comment on above: Other nerve root and plexus disorders (Primary Dx); Cervical paraspinal muscle spasm; Cervical stenosis of spinal canal Start: 04-30-2024 End: 04-30-2024 Postop follow up visit related to original px Solomon Okeeferoge PA-C Work Phone: [facility] Comment on above: Cervical radiculopat hy (Primary Dx); Status post cervical spinal fusion; Acute postoperative pain; Muscle spasms of neck Start: 04-30-2024 End: 04-30-2024 ambulatory [facility] Ambulatory Start: 04-28-2024 End: 04-28-[address] [facility] Work Phone: Start: 04-28-2024 End: 04-28-2024 Patient encounter procedure [facility] Work Phone: Start: 04-09-2024 End: 04-10-2024 ambulatory DORETHA HARRIS [facility] Start: 04-09-2024 End: 04-10-2024 Evaluation and management of inpatient Doretha Harris MD Work Phone: [facility] Kassandra [place] 4 Comment on above: Cervical radiculopat hy (Primary Dx); Senile osteoporosis Start: 04-01-2024 End: 04-01-[address] [facility] Work Phone: Start: 04-01-2024 End: 04-01-2024 Patient encounter procedure [facility] [place] Work Phone: Start: 03-31-2024 End: 03-31-2024 Subsequent hospital visit by physician Rad External Film EF RAD EXTERNAL FILM VIRTUAL Comment on above: Arrived Start: 03-31-2024 End: 03-31-2024 ambulatory [facility] Start: 03-26-2024 End: 03-26-2024 ambulatory [facility] Start: 03-19-2024 End: 03-19-2024 ambulatory [facility] Start: 02-13-2024 End: 02-13-2024 Subsequent hospital visit by physician [facility] [place] Comment on above: Cervical radiculopat hy Start: 02-13-2024 End: 02-13-2024 ambulatory [facility] Start: 02-13-2024 End: 02-13-2024 [facility] Start: 02-11-2024 End: 02-12-2024 ambulatory [facility] Start: 02-11-2024 End: 02-11-2024 ambulatory [facility] Start: 02-11-2024 End: 02-11-2024 Subsequent hospital visit by physician Daniel [id number] Cr [id number] Holter/Ecg Resource [facility] [place] Comment on above: Cervical radiculopat hy; Senile osteoporosis Start: 02-04-2024 End: 02-04-2024 ambulatory [facility] Start: 01-31-2024 End: 01-31-2024 [facility] Work Phone: Start: 01-31-2024 End: 01-31-2024 [facility] [place] Work Phone: Start: 01-03-2024 End: 01-03-2024 Office outpatient new 60 minutes Doretha Harris MD Work Phone: [facility] Comment on above: Cervical radiculopat hy (Primary Dx); Senile osteoporosis Start: 12-13-2023 End: 12-13-2023 Office outpatient visit 40 minutes Helder Jack MD Work Phone: [facility] 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) Start: 12-13-2023 End: 12-13-2023 ambulatory HELDER JACK [facility] Start: 12-13-2023 End: 12-13-2023 Subsequent hospital visit by physician [facility] 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) Start: 12-13-2023 End: 12-13-2023 ambulatory SHIMON HEATON [facility] Start: 12-12-2023 End: 12-12-2023 Office outpatient new 45 minutes Solomon Narayanan PA-C Work Phone: [facility] Comment on above: Cervical radiculopat hy (Primary Dx); Occipital neuralgia of left side; Balance problem Start: 12-03-2023 End: 12-03-2023 ambulatory DO Griselda Mendezs Work Phone: [facility] Work Phone: Start: 12-03-2023 End: 12-03-2023 Patient encounter procedure DO Griselda Mendezs Work Phone: [facility] [place] Work Phone: Start: 11-02-2023 End: 11-02-2023 Office outpatient visit 25 minutes Racquel Cole MD Work Phone: Hematology/Oncology Comment on above: 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) Start: 10-29-2023 End: 10-29-2023 ambulatory DO Griseldakeith Mendezs Work Phone: [facility] Work Phone: Start: 10-29-2023 End: 10-29-2023 Patient encounter procedure DO Griseldakeith Mendezs Work Phone: [facility] [place] Work Phone: Start: 10-26-2023 Non-patient / Non-visit DO Katy keith Kuns Work Phone: 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] Start: 10-18-2023 End: 10-18-2023 Patient encounter procedure DO Griseldakeith Mendezs Work Phone: [facility] Cardiology Work Phone: Start: 10-09-2023 End: 10-09-2023 ambulatory DO Griseldakeith Hastings Work Phone: [facility] Work Phone: Start: 10-09-2023 End: 10-09-2023 Patient encounter procedure DO Griseldakeith Mendezs Work Phone: [facility] Work Phone: Start: 10-05-2023 End: 10-05-2023 Office outpatient new 60 minutes Helder Jack MD Work Phone: [facility] Comment on above: Brainstem lesion (Pr imary Dx); Pontine glioma (Multi) Start: 09-19-2023 End: 09-19-2023 Subsequent hospital visit by physician Rad External Film EF RAD EXTERNAL FILM VIRTUAL Comment on above: Arrived Start: 09-05-2023 End: 09-05-2023 ambulatory DO Griselda Kuns Work Phone: [facility] Work Phone: Start: 09-05-2023 End: 09-05-2023 Patient encounter procedure DO Griselda Kuns Work Phone: [facility] Card[facility] Work Phone: Start: 09-05-2023 End: 09-05-2023 ambulatory DO Griselda Kuns Work Phone: [facility] Work Phone: Start: 09-05-2023 End: 09-05-2023 Patient encounter procedure DO Griselda Kuns Work Phone: [facility] Vascular Surgery Work Phone: Start: 08-15-2023 End: 08-15-2023 Patient encounter procedure DO Griselda Kuns Work Phone: [facility] [place] Work Phone: Start: 08-02-2023 End: 08-02-2023 ambulatory DO Griselda Kuns Work Phone: [facility] Work Phone: Start: 08-02-2023 End: 08-02-2023 Patient encounter procedure DO Griselda Kuns Work Phone: [facility] [place] Work Phone: Start: 07-26-2023 Chart abstracting Nikole Mota CISTERN ROOM OPERATOR Work Phone: [facility] [address] Start: 07-19-2023 Bamboo flowsheet Nikole Mota CISTERN ROOM OPERATOR Work Phone: [facility] Start: 07-19-2023 Bamboo flowsheet Nikole Mota CISTERN ROOM OPERATOR Work Phone: [facility] Start: 07-18-2023 End: 07-21-2023 ambulatory JOSE CRUZ KHAN [facility] Start: 07-02-2023 End: 07-02-2023 ambulatory Griselda Kuns Other [employer] Other Start: 07-02-2023 Office outpatient vi sit 25 minutes Griselda Kuns [facility] [place] Start: 07-02-2023 End: 07-02-2023 Patient encounter procedure DO Griselda Kuns Work Phone: [facility] Work Phone: Start: 05-31-2023 End: 05-31-2023 ambulatory Griselda Kuns Other [employer] Other Start: 05-31-2023 Office outpatient vi sit 25 minutes Griselda Kuns [facility] Start: 05-30-2023 Office outpatient vi sit 15 minutes Ruddy Harvey [facility] Start: 05-30-2023 End: 05-30-2023 ambulatory DO Griselda Kuns Work Phone: [employer] [employer] Other Start: 05-30-2023 End: 05-31-2023 Patient encounter procedure DO Griselda Kuns Work Phone: [facility]-Ultrasound [facility] Vascular Start: 05-30-2023 End: 05-30-2023 Patient encounter procedure DO Griselda Kuns Work Phone: [facility] Vascular Surgery Work Phone: Start: 05-15-2023 End: 05-15-2023 ambulatory Lilliam Cason Other [employer] Other Start: 05-15-2023 Office outpatient vi sit 25 minutes Lilliam Cason [facility] Start: 05-15-2023 Telephone encounter Lilliam Cason G Electronic Funds Transfer Coordinator Start: 05-15-2023 End: 05-15-2023 Patient encounter procedure DO Griselda Kuns Work Phone: [facility] Work Phone: Start: 05-07-2023 End: 05-07-2023 Admission to same day surgery center DO Griselda Kuns Work Phone: [facility]-Interventional Radiology Work Phone: Start: 05-07-2023 End: 05-07-2023 ambulatory DO Griselda Kuns Work Phone: [facility] Work Phone: Start: 05-04-2023 End: 05-04-2023 ambulatory DO Griselda Kuns Work Phone: [facility] Work Phone: Start: 05-04-2023 End: 05-04-2023 Patient encounter procedure DO Griselda Kuns Work Phone: [facility]-CT Scan [facility] Work Phone: Start: 05-03-2023 End: 05-03-2023 ambulatory Ruddy Harvey Other [employer] Other Start: 05-03-2023 Office outpatient ne w 45 minutes Ruddy Harvey [facility] Vascular Surgery Start: 05-03-2023 Telephone encounter Ruddy Bond [facility] Electronic Funds Transfer Coordinator Start: 05-01-2023 End: 05-01-2023 ambulatory Griselda Kuns Other [employer] Other Start: 05-01-2023 Office outpatient vi sit 25 minutes Griseldakeith Mendezs [facility] [place] Start: 04-25-2023 End: 04-25-2023 ambulatory DO Griselda Kuns Work Phone: [facility] Work Phone: Start: 04-25-2023 End: 04-25-2023 Patient encounter procedure DO Griselda Kuns Work Phone: [facility] Work Phone: Start: 04-12-2023 End: 04-12-2023 ambulatory Lilliam Cason Other [employer] Other Start: 04-12-2023 Telephone encounter Lilliam Cason [facility] Card[facility] Start: 04-11-2023 End: 04-11-2023 ambulatory Lilliam Cason Other [employer] Other Start: 04-11-2023 Office outpatient ne w 45 minutes Lilliam Cason [facility] Start: 04-10-2023 End: 04-10-2023 ambulatory Griselda Kuns Other [employer] Other Start: 04-10-2023 Telephone encounter Griseldakeith Mendezs [facility] [place] Start: 03-30-2023 End: 03-30-2023 ambulatory DO Griselda Kuns Work Phone: [facility] Work Phone: Start: 03-30-2023 End: 03-30-2023 Patient encounter procedure DO Griselda Kuns Work Phone: [facility] Work Phone: Start: 03-21-2023 End: 03-21-2023 Emergency department patient visit DO Griselda Kuns Work Phone: [facility]-Emergency Room Work Phone: Start: 03-15-2023 End: 03-15-2023 ambulatory Griselda Kuns Other [employer] Other Start: 03-15-2023 Office outpatient vi sit 25 minutes Griselda Kuns [facility] [place] Start: 03-08-2023 End: 03-08-2023 ambulatory Griselda Kuns Other [employer] Other Start: 03-08-2023 Office outpatient vi sit 25 minutes Griselda Kuns [facility] Start: 02-26-2023 End: 02-26-2023 Emergency department patient visit DO Griselda Kuns Work Phone: [facility]-Emergency Room Work Phone: Start: 12-28-[address] BRET Lawrence ity:UNKNOWN Start: 12-05-2022 End: 12-05-2022 ambulatory Griselda Kuns Other [facility] Other Start: 12-05-2022 Office outpatient vi sit 25 minutes Griselda Kuns [facility] Start: 11-15-2022 End: 11-15-2022 ambulatory DO Griselda Kuns Work Phone: [facility] Work Phone: Start: 11-15-2022 End: 11-15-2022 Patient encounter procedure DO Griselda Kuns Work Phone: [facility]-MRI [address] Work Phone: Start: 10-27-2022 End: 10-27-2022 Subsequent hospital visit by physician Arrival Time Radiology Work Phone: Radiology Pet CT Comment on above: Malignant neoplasm o f head, 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] Start: 10-24-2022 End: 10-24-2022 ambulatory DO Griselda Kuns Work Phone: [facility] Work Phone: Start: 10-24-2022 End: 10-24-2022 Patient encounter procedure DO Griselda Kuns Work Phone: [facility] [place] Work Phone: Start: 09-28-2022 End: 09-28-2022 ambulatory FLORES CAT Facility:[facility] Start: 09-22-2022 End: 09-22-2022 Subsequent hospital visit by physician Mri David (I-Stat/3t) Work Phone: Radiology Comment on above: 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] Start: 09-18-2022 Telephone encounter Kelly ghosh PA-C Work Phone: [facility] Comment on above: Patient Question Start: 09-13-2022 End: 09-13-2022 Patient encounter procedure Kelly Perez PA-C Work Phone: [facility] Comment on above: NPH (normal pressure hydrocephalus) (HCC) (Primary Dx) Start: 08-31-2022 End: 08-31-2022 ambulatory Griselda Kuns Other [employer] Other Start: 08-31-2022 Office outpatient vi sit 25 minutes Griselda Kuns [facility] Start: 08-01-2022 End: 08-01-2022 ambulatory Griselda Kuns Other [employer] Other Start: 08-01-2022 Office outpatient vi sit 25 minutes Griselda Kuns [facility] Start: 07-17-2022 End: 07-17-2022 ambulatory DO Griselda Kuns Work Phone: [facility] Work Phone: Start: 07-17-2022 End: 07-17-2022 Patient encounter procedure DO Griselda Kuns Work Phone: [facility]-XRay [facility] [place] Work Phone: Start: 07-14-2022 End: 07-14-2022 Patient encounter procedure DO Griselda Kuns Work Phone: [facility]-CT Scan [facility] Work Phone: Start: 06-28-2022 End: 06-28-2022 ambulatory Trish Carney Other [employer] Other Start: 06-28-2022 Office outpatient ne w 45 minutes Trish Carney [facility] Neurosurgery Start: 05-26-2022 End: 05-26-2022 ambulatory Griselda Kuns Other [employer] Other Start: 05-26-2022 Office outpatient vi sit 25 minutes Girselda Kuns [facility] Start: 05-17-2022 End: 05-17-2022 ambulatory DO Griselda Kuns Work Phone: [facility] Work Phone: Start: 05-17-2022 End: 05-17-2022 Discharged Recurring DO Griselda Kuns Work Phone: [facility]-Physical Therapy [address] Start: 04-27-2022 Registered Recurring DO Griselda Kuns Work Phone: [facility]-Physical Therapy [address] Start: 04-16-2022 End: 04-17-2022 Emergency department patient visit DO Griselda Kuns Work Phone: [facility]-Emergency Room Start: 04-10-2022 End: 04-10-2022 ambulatory Griselda Kuns Other [facility] Other Start: 04-10-2022 Telephone encounter Griselda Kuns [facility] Start: 04-06-2022 End: 04-06-2022 Emergency department patient visit DO Griselda Kuns Work Phone: [facility]-Emergency Room Start: 03-27-2022 Telephone encounter Asya Reynolds RN Hematology/Oncology Comment on above: Appointment Start: 03-22-2022 End: 03-22-2022 ambulatory Griselda Kuns Other [employer] Other Start: 03-22-2022 Telephone encounter Griselda Kuns [facility] Start: 03-16-2022 End: 03-16-2022 ambulatory Griselda Kuns Other [employer] Other Start: 03-16-2022 Office outpatient vi sit 25 minutes Griselda Kuns [facility] Start: 03-16-2022 Telephone encounter Self [facility] Comment on above: Triage (Internal Ref erral--old) Start: 03-09-2022 End: 03-09-2022 ambulatory Griselda Kuns Other [employer] Other Start: 03-09-2022 Telephone encounter Griselda Kuns [facility] Start: 03-07-2022 End: 03-07-2022 ambulatory Griselda Kuns Other [employer] Other Start: 03-07-2022 Telephone encounter Griselda Kuns [facility] Start: 03-03-2022 Telephone encounter Griselda Kuns [facility] Start: 03-03-2022 End: 03-03-2022 ambulatory DO Griselda Kuns Work Phone: [employer] Other Start: 03-03-2022 End: 03-03-2022 Discharged Recurring DO Griselda Kuns Work Phone: [facility]-Physical Therapy [address] Start: 03-03-2022 Registered Recurring DO Griselda Kuns Work Phone: [facility]Physical Therapy [address] Start: 02-07-2022 End: 02-07-2022 ambulatory Griselda Kuns Other [employer] Other Start: 02-07-2022 Telephone encounter Griselda Kuns [facility] Start: 01-30-2022 End: 01-30-2022 ambulatory Griselda Kuns Other [employer] Other Start: 01-30-2022 Office outpatient vi sit 25 minutes Griselda Kuns [facility] Start: 01-12-2022 End: 01-12-2022 ambulatory Griselda Kuns Other [employer] Other Start: 01-12-2022 Telephone encounter Griselda Kuns [facility] [place] Start: 12-26-2021 End: 12-26-2021 ambulatory Griselda Kuns Other [employer] Other Start: 12-26-2021 Office outpatient vi sit 25 minutes Griselda Kuns [facility] Start: 12-23-2021 End: 12-23-2021 ambulatory Griselda Kuns Other [employer] Other Start: 12-23-2021 Telephone encounter Griselda Kuns [facility] Start: 12-05-2021 End: 12-05-2021 ambulatory Griselda Kuns Other [employer] Other Start: 12-05-2021 Office outpatient vi sit 25 minutes Griselda Kuns [facility] Start: 12-05-2021 Telephone encounter Griselda Kuns [facility] Start: 11-22-2021 End: 11-22-2021 ambulatory Griselda Kuns Other [employer] Other Start: 11-22-2021 Telephone encounter Griselda Kuns [facility] Start: 11-21-2021 Office outpatient vi sit 15 minutes Griselda R Kuns Work Phone: [facility] Work Phone: Start: 11-09-2021 End: 11-09-2021 ambulatory Griselda Kuns Other [employer] Other Start: 11-09-2021 Telephone encounter Griselda Kuns [facility] Start: 11-08-2021 End: 11-08-2021 ambulatory Griselda Kuns Other [employer] Other Start: 11-08-2021 Office outpatient vi sit 25 minutes Griselda Andreas [facility] Start: 11-03-2021 Office consultation new/estab patient 60 min Griselda R Andreas Work Phone: [facility] Work Phone: Start: 11-01-2021 End: 11-01-2021 ambulatory Griselda Kuns Other [employer] Other Start: 11-01-2021 Office outpatient vi sit 25 minutes Griselda Kuns [facility] Start: 10-31-2021 End: 10-31-2021 ambulatory Sheng Schneider Other [employer] Other Start: 10-31-2021 Telephone encounter Sheng Clark [facility] Neurosurgery Start: 10-27-2021 End: 10-27-2021 ambulatory Racquel Cole MD Work Phone: Hematology/Oncology Comment on above: 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); Lung nodules; Malignant neoplasm of head, face and neck (HCC) Start: 10-27-2021 End: 10-27-2021 Telemedicine consultation with patient Racquel Cole MD Work Phone: [place] Start: 10-24-2021 End: 10-24-2021 ambulatory Sheng Schneider Other [employer] Other Start: 10-24-2021 Office outpatient ne w 30 minutes Sheng Schneider [facility] Neurosurgery Start: 10-13-2021 Telephone encounter [facility] MD [facility] Comment on above: Referral Information (Neurosurgery) Start: 10-13-2021 End: 10-13-2021 ambulatory Racquel Cole MD Work Phone: Hematology/Oncology Comment on above: Glioma of brain (HCC ) (Primary Dx); Lung nodules; Primary squamous cell carcinoma of head and neck (HCC) Start: 10-13-2021 End: 10-13-2021 Patient encounter procedure Racquel Cole MD Work Phone: [place] Start: 10-06-2021 End: 10-06-2021 ambulatory Griselda Kuns Other [employer] Other Start: 10-06-2021 Telephone encounter Asya Kumar RN Hematology/Oncology Comment on above: Results Start: 10-06-2021 End: 10-06-2021 Subsequent hospital visit by physician Arrival Time Radiology Work Phone: Radiology [facility] Comment on above: Malignant neoplasm o f head, 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] Start: 09-29-2021 End: 09-29-2021 ambulatory Griselda Kuns Other [employer] Other Start: 09-29-2021 Telephone encounter Griselda Kuns [facility] Start: 09-27-2021 End: 09-27-2021 ambulatory Griselda Kuns Other [employer] Other Start: 09-27-2021 Telephone encounter Griselda Kuns [facility] Start: 09-19-2021 End: 09-19-2021 ambulatory Griselda Kuns Other [employer] Other Start: 09-19-2021 Office outpatient vi sit 25 minutes Griselda Kuns [facility] Start: 09-12-2021 End: 09-12-2021 ambulatory Griselda Kuns Other [employer] Other Start: 09-12-2021 Telephone encounter Griselda Kuns [facility] Start: 09-08-2021 End: 09-08-2021 ambulatory Griselda Kuns Other [employer] Other Start: 09-08-2021 Telephone encounter Griselda Andreas [facility] Start: 06-30-2021 End: 06-30-2021 ambulatory Griselda Kuns Other [employer] Other Start: 06-30-2021 Office outpatient vi sit 15 minutes Griselda Andreas [facility] Start: 06-30-2021 Telephone encounter Griselda Andreas [facility] Start: 06-29-2021 End: 06-29-2021 ambulatory Griselda Andreas Other [employer] Other Start: 06-29-2021 Nursing evaluation o f patient and report Griselda Andreas [facility] Start: 04-19-2021 End: 04-19-2021 ambulatory Griselda Andreas Other [employer] Other Start: 04-19-2021 Nursing evaluation o f patient and report Griselda Andreas [facility] Start: 04-19-2021 Telephone encounter Griselda Andreas [facility] Start: 04-14-2021 Office outpatient vi sit 15 minutes Griselda Andreas [facility] Start: 10-01-2020 End: 10-01-2020 Patient encounter procedure Griselda Hastings Work Phone: -Electrodiagnostics Start: 09-20-2020 End: 09-20-2020 Patient encounter procedure Griselda Hastings -Lab [facility] Start: 09-13-2020 End: 09-13-2020 Patient encounter procedure Griselda Hastings -XRay [facility] [place] Procedures Date Procedure Procedure Detail Performing Clinician Start: 02-26-2025 Ankle brachial pressure index Griselda Hastings DO Work Phone: Start: 01-08-2025 End: 01-08-2025 CRYOTHERAPY SKIN LESION Anahi Soni Work Phone: Start: 2024 Plain chest X-ray Griselda Kuns DO Work Phone: Start: 11-19-2024 Quick Strep (POC) Griselda Kuns DO Work Phone: Start: 11-19-2024 RSV (POC) Griselda Kuns DO Work Phone: Start: 11-05-2024 Esophagogastroduodenoscopy Griselda Kuns DO Work Phone: Start: 11-03-2024 Ct soft [...] brain brain stem w/o w/contrast material Shimon SAAVEDRA-Fatimah Work Phone: Start: 10-26-2023 Ct soft tissue [...] CT angiography of neck vessels DO Griselda Hastings Work Phone: Start: 04-25-2023 Pulse volume recorder pneumoplethysmography DO Griselda Hastings Work Phone: Start: 02-26-2023 SARS Antigen (LFIA) DO Griselda Hastings Work Phone: Start: 11-15-2022 MR lumbar [...] CT cervical spine without contrast DO Br lena Hastings Work Phone: Start: 10-13-2021 Adult depression [...] RSV Vaccine (1 - 1-dose 75+ series) [facility] Start: 04-10-2027 Diabetes Screening Diabetes Screening [facility] Start: 10-25-2026 Diabetes Screening Diabetes Screening [facility] Start: 02-12-2026 Screening for osteoporosis Bone Density Scan [facility] Start: 01-08-2026 End: 01-08-2026 Patient encounter procedure TRENT ZEE Start: 04-30-2025 End: 04-30-2025 Clinical Support 04/30/2025 2:00 PM EST Clinical Support [facility] [address] [facility] [address] [place] [address] Oziel Cadena MD [address] [facility] [address] [place] [id number] [facility] Start: 04-06-2025 End: 04-06-2025 Patient encounter procedure 04/06/2025 9:30 AM EDT Office Visit [address] [place] [phone] Doretha Harris MD [address] [facility], [place] [phone] [facility] Start: 03-18-2025 End: 03-18-2025 Clinical Support 03/18/2025 2:20 PM EDT Clinical Support [facility] [address] [place] [address] Oziel Cadena MD [address] [facility] [address] [place] [id number] [facility] Start: 03-18-2025 End: 03-18-2025 Clinical Support 03/18/2025 11:30 AM EDT Clinical Support [facility] [place] [facility] [address] [place] [address] Oziel Cadena MD [address] [facility] [address] [place] [phone] Arrived [facility] Comment on above: Arrived Start: 02-26-2025 Ankle brachial pressure index [facility] Start: 02-16-2025 Influenza vaccination [facility] Start: 02-04-2025 End: 02-04-2025 Clinical Support [facility] Comment on above: Arrived Start: 01-08-2025 End: 01-08-2025 Patient encounter procedure [facility] M Comment on above: Arrived Start: 01-01-2025 End: 01-01-2025 Patient encounter procedure 01/01/2025 10:30 AM EDT Office Visit [facility]ARD[facility] [address] [place] [address] Anahi Franco PA [address] [place] [address] [facility] Start: 12-24-2024 End: 12-24-2024 Clinical Support [facility] Comment on above: Arrived Start: 11-12-2024 End: 11-12-2024 Clinical Support [facility] Comment on above: Arrived Start: 11-07-2024 End: 11-07-2024 Follow-up encounter Hematology/Oncolog y Comment on above: [address] and lab Start: 11-05-2024 [facility] Start: 11-03-2024 End: 02-02-2025 Comprehensive metabolic 2000 panel - Serum or Plasma COMPREHENSIVE METABOLIC PANEL Lab Routine Primary squamous cell carcinoma of head and neck (HCC) Expected: 11/03/2024 (Approximate), Expires: 02/02/2025 [facility] Work Phone: Comment on above: Expected: 11/03/2024 (Approximate), Expi res: 02/02/2025 Start: 11-03-2024 End: 11-03-2024 Patient encounter procedure 11/03/2024 9:00 AM EDT Appointment Radiology Pet CT [address] [place] [address] [place] [address] Ct Chest and neck with contrast and lab Radiology Pet CT Comment on above: Ct Chest and neck with contrast and lab Start: 11-01-2024 End: 11-01-2024 CBC W Auto Differential panel - Blood COMPLETE BLOOD COUNT AND DIFFERENTIAL Lab Routine Primary squamous cell carcinoma of head and neck (HCC) Expected: 11/01/2024 (Approximate), Expires: 11/01/2024 [facility] Comment on above: Expected: 11/01/2024 (Approximate), Expi res: 11/01/2024 Start: 11-01-2024 End: 11-01-2024 Comprehensive metabolic 2000 panel - Serum or Plasma COMPREHENSIVE METABOLIC PANEL Lab Routine Primary squamous cell carcinoma of head and neck (HCC) Expected: 11/01/2024 (Approximate), Expires: 11/01/2024 [facility] Comment on above: Expected: 11/01/2024 (Approximate), Expi res: 11/01/2024 Start: 11-01-2024 End: 12-01-2024 CT Chest W contrast IV CT CHEST W IVCON Radiology Routine Primary squamous cell carcinoma of head and neck (HCC) Expected: 11/01/2024 (Approximate), Expires: 12/01/2024 [facility] Comment on above: Expected: 11/01/2024 (Approximate), Expi res: 12/01/2024 Start: 11-01-2024 End: 12-01-2024 CT Neck W contrast IV CT NECK SOFT TISSUE W IVCON Radiology Routine Primary squamous cell carcinoma of head and neck (HCC) Expected: 11/01/2024 (Approximate), Expires: 12/01/2024 [facility] Work Phone: Comment on above: Expected: 11/01/2024 (Approximate), Expi res: 12/01/2024 Start: 10-10-2024 X-ray of cervical spine XR cervical spine 2V [facility] Start: 10-10-2024 XR Cervical spine 2 Views [facility] Start: 10-06-2024 DIABETES SCREEN DIABETES SCREEN [facility] Start: 09-29-2024 End: 09-29-2024 Patient encounter procedure 09/29/2024 11:00 AM EDT Office Visit [facility] [address] [facility] [address] [place] [phone] Doretha Harris MD [address] [facility] [place], [place] [phone] [facility] Start: 09-11-2024 End: 09-11-2024 Clinical Support 09/11/2024 10:40 AM EDT Clinical Support [facility] [address] [place] [address] Oziel Cadena MD [address] [facility] [address] [place] [address] [facility] Start: 09-11-2024 Ankle brachial pressure index US ankle/arm indices [facility] Start: 07-31-2024 End: 07-31-2024 Clinical Support [facility] Comment on above: Arrived Start: 07-02-2024 End: 07-02-2024 Clinical Support [facility] Comment on above: Arrived Start: 06-30-2024 End: 06-30-2025 XR Cervical spine 2 or 3 Views XR cervical spine 2-3 views Imaging Routine Status post cervical spinal fusion Expected: 06/30/2024, Expires: 06/30/2025 [facility] Service Area Work Phone: Comment on above: Expected: 06/30/2024, Expires: Start: 06-30-2024 End: 06-30-2024 Patient encounter procedure [facility] Start: 05-21-2024 End: 05-21-2024 Clinical Support 05/21/2024 2:00 PM EST Clinical Support [facility] [address] [facility] [address] [place] [address] Oziel Cadena MD [address] [address] Arrived [facility] Comment on above: Arrived Start: 05-16-2024 End: 05-16-2024 Patient encounter procedure 05/16/2024 9:15 AM EST Office Visit [facility] [address] [facility] [address] [place] [address] Doretha Harris MD [address] [facility], [address] [place] [address] [facility] Start: 05-02-2024 End: 05-02-2024 Patient encounter procedure [facility] [place] Start: 04-30-2024 End: 04-30-2025 XR Cervical spine 2 or 3 Views XR cervical spine 2-3 views Imaging Routine Cervical radiculopathy Status post cervical spinal fusion Expected: 04/30/2024, Expires: 04/30/2025 [facility] Service Area Work Phone: Comment on above: Expected: 04/30/2024, Expires: Start: 04-30-2024 End: 04-30-2024 Patient encounter procedure 04/30/2024 1:00 PM EST Office Visit [facility] [address] [facility] [address] [place] [phone] Solomon Narayanan PA-C [address] [place] [address] [facility] Start: 04-09-2024 End: 04-09-2024 Admission to same day surgery center 04/09/2024 7:45 AM EDT - 04/09/2024 12:25 PM EDT Surgery [facility] [place] [address] [place] [address] Doretha Harris MD [address] [facility], [address] [place] [address] Fusion Spine Anterior Cervical and Discectomy C5-6, C6-7 [80090 (CPT )] [facility] [place] Comment on above: Fusion Spine Anterior Cervical and Disce ctomy C5-6, C6-7 [97908 (CPT )] Start: 04-09-2024 End: 04-09-2024 Arthrd ant interbody decompress cervical belw c2 Fusion Spine Anterior Cervical and Discectomy Cervical radiculopathy Senile osteoporosis 04/09/2024 7:45 AM EDT [facility] [place] Start: 04-09-2024 Subsequent hospital visit by physician 04/09/2024 7:45 AM EDT Hospital Encounter [facility] [place] [address] [place] [address] Doretha Harris MD [address] [facility], [address] [place] [address] [facility] [place] Start: 03-15-2024 DTaP/Tdap/Td Vaccines (2 - Td or Tdap) DTaP/Tdap/Td Vaccines (2 - Td or Tdap) [facility] Start: 03-15-2024 Urine microalbumin profile DTaP,Tdap,Td Vaccine (2 - Td or Tdap) [facility] Start: 03-11-2024 End: 03-11-2024 Patient encounter procedure 03/11/2024 11:30 AM EDT Office Visit [address] [place] [address] Solomon Narayanan PA-C [address] [facility] [place], [place] [phone] [facility] Start: 03-03-2024 Influenza vaccination Influenza Vaccine (#1) [facility] Comment on above: Postponed from 02/16/2023 (Patient Refus ed) Start: 02-27-2024 End: 02-27-2024 Admission to same day surgery center [facility] [place] Comment on above: Anterior Cervical Discectomy and Fusion C5-6, C6-7 [19689 (CPT )] Start: 02-27-2024 End: 02-27-2024 Arthrd ant interbody decompress cervical belw c2 [facility] [place] Start: 02-27-2024 Subsequent hospital visit by physician [facility] [place] Start: 02-17-2024 COVID-19 Vaccine ( season) COVID-19 Vaccine ( season) [facility] Start: 02-17-2024 Covid-19 Vaccine ( season) Covid-19 Vaccine ( season) [facility] Start: 02-17-2024 Covid-19 Vaccine ( season) Covid-19 Vaccine ( season) [facility] Start: 02-17-2024 Influenza vaccination [facility] Start: 02-15-2024 End: 02-15-2024 Patient encounter procedure 02/15/2024 9:00 AM EDT Office Visit [address] [place] [address] Vincenzo Sanchez MD [address] [place] [address] [address] [place] [address] [facility] Start: 02-13-2024 End: 02-13-2024 Patient encounter procedure 02/13/2024 11:00 AM EDT Appointment [facility] [address] [place] [phone] [facility] Start: 02-03-2024 End: 01-02-2025 Nicotine and Metabolites,S Nicotine and Metabolites,S Lab Routine Cervical radiculopathy Senile osteoporosis Expected: 02/03/2024 (Approximate), Expires: 01/02/2025 [facility] Work Phone: Comment on above: Expected: 02/03/2024 (Approximate), Expi res: 01/02/2025 Start: 01-03-2024 End: 01-02-2025 DXA Skeletal system.axial Views for bone density XR DEXA bone density axial skeleton w VFA Imaging Routine Senile osteoporosis Expected: 01/03/2024, Expires: 01/02/2025 [facility] Service Area Work Phone: Comment on above: Expected: 01/03/2024, Expires: 5 Start: 01-03-2024 End: 01-02-2025 XR Cervical spine 6 Views XR cervical spine complete 6+ views Imaging Routine Cervical radiculopathy Expected: 01/03/2024, Expires: 01/02/2025 [facility] Work Phone: Comment on above: Expected: 01/03/2024, Expires: 5 Start: 01-03-2024 End: 01-03-2024 Patient encounter procedure 01/03/2024 1:30 PM EDT Office Visit [facility] [address] [phone] Doretha Harris MD [address] [facility], [address] [address] [facility] Start: 12-13-2023 End: 12-12-2024 MR Brain WO and W contrast IV MR brain w and wo IV contrast Imaging Routine Pontine glioma (Multi) Expected: 12/13/2023 (Approximate), Expires: 12/12/2024 [facility] Service Area Work Phone: Comment on above: Expected: 12/13/2023 (Approximate), Expi res: 12/12/2024 Start: 12-13-2023 End: 12-13-2023 Patient encounter procedure [facility] Start: 09-28-2023 End: 09-28-2023 Patient encounter procedure 09/28/2023 10:15 AM EDT Office Visit [facility] [address] [place] [phone] [place] [address] Department [place] [address] [facility] Start: 09-05-2023 Ankle brachial pressure index [facility] Start: 08-30-2023 End: 08-30-2023 Patient encounter procedure 08/30/2023 9:40 AM EDT Office Visit [facility] [address] [facility] [address] [place] [phone] Nikole Mota NP [address] Rtohman [address] [place] [address] [facility] Start: 07-26-2023 End: 07-26-2023 Patient encounter procedure 07/26/2023 1:30 PM EST Procedure Visit [facility] 210 [id number] KATIE ROTHMAN [address] [place] [address] [phone] Nikole Mota NP [address]man [address] [place] [id number] [facility] 210 Start: 07-19-2023 End: 07-19-2023 Clinical Support 07/19/2023 1:30 PM EST Clinical Support [facility] [address] [place] [address] Nikole Mota, CISTERN ROOM OPERATOR [address] [phone] Cervical dystonia [facility] Comment on above: Cervical dystonia Start: 06-18-2023 Behavioral Health Screening Behavioral Health Screening [facility] Start: 05-07-2023 Pulse volume recorder pneumoplethysmography US arterial pvr rest [facility] Start: 05-07-2023 [facility] Start: 05-07-2023 [facility] Start: 04-25-2023 Pulse volume recorder pneumoplethysmography US arterial pvr rest [facility] Start: 02-16-2023 COVID-19 Vaccine ( season) COVID-19 Vaccine ( season) [facility] Start: 02-16-2023 Influenza vaccination INFLUENZA (Season Ended) [facility] Start: 2022 RSV High Risk: (Elderly (60+) or Population) (1 - Risk 60-74 years 1-dose series) RSV High Risk: (Elderly (60+) or Population) (1 - Risk 60-74 years 1-dose series) [facility] Start: 2022 RSV patients and/or patients aged 60+ years (1 - 1-dose 60+ series) RSV patients and/or patients aged 60+ years (1 - 1-dose 60+ series) [facility] Start: 2022 RSV Vaccine (1 - 1-dose 60+ series) RSV Vaccine (1 - 1-dose 60+ series) [facility] Start: 10-30-2022 End: 10-30-2022 CBC W Auto Differential panel - Blood CBC + DIFF Lab Routine 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) Lung nodules Malignant neoplasm of head, face and neck (HCC) Expected: 10/30/2022 (Approximate), Expires: 10/30/2022 [facility] Work Phone: Comment on above: Expected: 10/30/2022 (Approximate), Expi res: 10/30/2022 Start: 10-30-2022 End: 10-30-2022 Comprehensive metabolic 2000 panel - Serum or Plasma COMP METABOLIC PANEL Lab Routine 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) Lung nodules Malignant neoplasm of head, face and neck (HCC) Expected: 10/30/2022 (Approximate), Expires: 10/30/2022 [facility] Work Phone: Comment on above: Expected: 10/30/2022 (Approximate), Expi res: 10/30/2022 Start: 10-30-2022 End: 11-29-2022 Ct soft tissue neck w/contrast material CT NECK SOFT TISSUE W IVCON Radiology Routine Malignant neoplasm of head, face and neck (HCC) Expected: 10/30/2022 (Approximate), Expires: 11/29/2022 [facility] Work Phone: Comment on above: Expected: 10/30/2022 (Approximate), Expi res: 11/29/2022 Start: 10-30-2022 End: 11-29-2022 Ct thorax w/contrast material CT CHEST W IVCON Radiology Routine Lung nodules Expected: 10/30/2022 (Approximate), Expires: 11/29/2022 [facility] Work Phone: Comment on above: Expected: 10/30/2022 (Approximate), Expi res: 11/29/2022 Start: 10-13-2022 Adult depression screening assessment DEPRESSION SCREENING [facility] Start: 07-17-2022 Aerobic Culture Aerobic Culture [facility] Start: 07-17-2022 Anaerobic Culture Anaerobic Culture [facility] Start: 07-17-2022 Microscopic observation [Identifier] in Unspecified specimen by Gram stain [facility] Start: 07-17-2022 Cerebrospinal fluid culture [facility] Start: 07-17-2022 End: 07-17-2022 [facility] Start: 07-17-2022 [facility] Start: 06-18-2022 DEPRESSION ASSESSMENT DEPRESSION ASSESSMENT [facility] Start: 04-16-2022 Plain chest X-ray XR ribs LT min 3V w CXR1V* [facility] Start: 04-16-2022 XR Unspecified body region Views [facility] Start: 02-16-2022 Influenza vaccination [facility] Start: 10-14-2021 Adult depression screening assessment DEPRESSION SCREENING [facility] Start: 06-23-2021 COVID-19 VACCINE (3 - Booster for Pfizer series) COVID-19 VACCINE (3 - Booster for Pfizer series) [facility] Start: 06-18-2021 DEPRESSION ASSESSMENT DEPRESSION ASSESSMENT [facility] Start: 03-18-2021 COVID-19 VACCINE (3 - Booster for Pfizer series) COVID-19 VACCINE (3 - Booster for Pfizer series) [facility] Start: 2017 PROSTATE CANCER SCREENING DISCUSSION PROSTATE CANCER SCREENING DISCUSSION [facility] Start: 2017 Prostate specific antigen measurement Prostate Cancer Screening Discussion [facility] Start: 2012 Pneumococcal Vaccine: 50+ (1 of 1 - PCV) Pneumococcal Vaccine: 50+ (1 of 1 - PCV) [facility] Start: 2012 Screening for malignant neoplasm of lung Lung Cancer Screening [facility] Start: 2012 SHINGRIX VACCINE (1 of 2) SHINGRIX VACCINE (1 of 2) [facility] Start: 2012 Zoster Vaccines (1 of 2) Zoster Vaccines (1 of 2) [facility] Start: 11-25-2007 COLOGUARD (FIT-DNA) COLOGUARD (FIT-DNA) [facility] Start: 11-25-2007 Colonoscopy COLONOSCOPY [facility] Start: 11-25-2007 COLORECTAL CANCER SCREENING COLORECTAL CANCER SCREENING [facility] Start: 11-25-[address] COLONOGRAPHY [facility] Start: 11-25-2007 FECAL OCCULT BLOOD FECAL OCCULT BLOOD [facility] Start: 11-25-2007 Prostate specific antigen measurement Prostate Cancer Screening Discussion [facility] Start: 11-25-2007 Screening for malignant neoplasm of colon [facility] Start: 11-25-2007 SIGMOIDOSCOPY SIGMOIDOSCOPY [facility] Start: 1997 Lipid panel Lipid Screening [facility] Start: 1997 LIPID SCREEN LIPID SCREEN [facility] Start: 1981 Hepatitis A Vaccines (1 of 2 - Risk 2-dose series) Hepatitis A Vaccines (1 of 2 - Risk 2-dose series) [facility] Start: 1981 Pneumococcal vaccination Pneumococcal Vaccine (1 of 2 - PCV) [facility] Start: 1981 Urine microalbumin profile DTAP,TDAP,TD (1 - Tdap) [facility] Start: 1980 Anxiety Screening Anxiety Screening [facility] Start: 1980 Depression Screening Depression Screening [facility] Start: 1980 Diabetes mellitus screening Diabetes Screening [facility] Start: 1980 HEPATITIS C SCREENING HEPATITIS C SCREENING [facility] Start: 1980 Hepatitis C screening Hepatitis C Screening [facility] Start: 1980 HIV SCREENING HIV SCREENING [facility] Start: 1980 HIV screening HIV Screening [facility] Start: 1968 Pneumococcal Vaccine: Pediatrics (0 to 5 Years) and At-Risk Patients (6 to 64 Years) (1 of 2 - PCV) Pneumococcal Vaccine: Pediatrics (0 to 5 Years) and At-Risk Patients (6 to 64 Years) (1 of 2 - PCV) [facility] Start: 11-25-1963 MMR Vaccines (1 of 1 - Standard series) MMR Vaccines (1 of 1 - Standard series) [facility] Start: 1962 Annual wellness visit Welcome to Medicare Visit [facility] Start: 1962 HIV screening HIV Screening [facility] Start: 1962 Lipid panel Lipid Panel [facility] Start: 1962 Screening for malignant neoplasm of colon [facility] Start: 1962 Screening for osteoporosis Bone Density Scan [facility] Start: 1962 Yearly Adult Physical Yearly Adult Physical [facility] Ankle brachial pressure index [facility] Bacteria identified in Cerebral spinal fluid by Culture CSF CULT + STAIN Microbiology Routine NPH (normal pressure hydrocephalus) (HCC) Ordered: 09/13/2022 [facility] Work Phone: Comment on above: Ordered: 09/13/2022 Bacteria identified in Unspecified specimen by Aerobe culture [facility] Bacteria identified in Unspecified specimen by Anaerobe culture [facility] End: 04-12-2024 Basic metabolic 2000 panel - Serum or Plasma Basic metabolic panel Lab Routine Morning draw (Lab) for 3 Occurrences starting 04/10/2024 until 04/12/2024, 1 completed [facility] Work Phone: Comment on above: Morning draw (Lab) for 3 Occurrences sta rting 04/10/2024 until 04/12/2024, 1 completed End: 04-12-2024 CBC panel - Blood by Automated count CBC Lab Routine Morning draw (Lab) for 3 Occurrences starting 04/10/2024 until 04/12/2024, 1 completed [facility] Work Phone: Comment on above: Morning draw (Lab) for 3 Occurrences sta rting 04/10/2024 until 04/12/2024, 1 completed Cell count panel - C erebral spinal fluid CSF CELL COUNT Lab Routine NPH (normal pressure hydrocephalus) ([facility]) Ordered: 09/13/2022 [facility] Work Phone: Comment on above: Ordered: 09/13/2022 Cell count, cerebros roberto fluid [facility] Comprehensive metabo lic 1999 panel - Serum or Plasma [facility] Comprehensive metabo lic 1999 panel - Serum or Plasma [facility] End: 04-09-2024 Continuous Pulse oximetry, In Phase 1 Continuous Pulse oximetry, In Phase 1 Respiratory Care Routine Continuous until discontinued starting 04/09/2024 [facility] Service Area Work Phone: Comment on above: Continuous until discontinued starting 1 Enolase.neuron speci fic [Mass/volume] in Serum or Plasma by Immunoassay [facility] Fungus identified in Unspecified specimen by Culture [facility] Glucose [Mass/volume ] in Cerebral spinal fluid [facility] Glucose [Mass/volume ] in Serum or Plasma POCT Glucose Point of Care Testing - Docked Device Routine As needed (Lab) until discontinued starting 04/09/2024 [facility] Service Area Work Phone: Comment on above: As needed (Lab) until discontinued start ing 04/09/2024 End: 04-09-2024 Incentive spirometry Instruct Incentive spirometry Instruct Respiratory Care Routine Once for 1 Occurrences starting 04/09/2024 until 04/09/2024 [facility] Work Phone: Comment on above: Once for 1 Occurrences starting 04/09/20 until 04/09/2024 IR LP FOR DRAINAGE (PRESSURE) IR LP FOR DRAINAGE (PRESSURE) Radiology Routine NPH (normal pressure hydrocephalus) (HCC) Ordered: 09/13/2022 [facility] Work Phone: Comment on above: Ordered: 09/13/2022 Meningitis+Encephali tis pathogens DNA and RNA panel - Cerebral spinal fluid by JER with non-probe detection [facility] End: 10-20-2023 Mri brain brain stem w/o w/contrast material MRI BRAIN WO/W IVCON Radiology Routine 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HCC) 1 Occurrences starting 09/20/2022 until 10/20/2023 [facility] Work Phone: Comment on above: 1 Occurrences starting 09/20/2022 until 10/20/2023 Patient Education [facility] Work Phone: Patient referral [facility] Work Phone: Protein [Mass/volume ] in Cerebral spinal fluid [facility] End: 04-09-2024 Urethral Catheter Removal Urethral Catheter Removal Procedures Routine Once for 1 Occurrences starting 04/09/2024 until 04/09/2024 [facility] Work Phone: Comment on above: Once for 1 Occurrences starting 04/09/20 until 04/09/2024 Virus identified in Unspecified specimen by Culture [facility] End: 02-13-2024 XR Cervical spine 6 Views [facility] Service A [facility] Work Phone: Comment on above: Once for 1 Occurrences starting 02/13/20 until 02/13/2024 XR Chest 2 Views XR chest 2 view s Imaging Routine Cervical radiculopathy Senile osteoporosis 02/13/2024 11:10 AM EDT [facility] Work Phone: XR Chest 2 Views [facility] Immunizations Immunization Date Immunization Notes Care Provider Fa frank 01-21-2021 COVID-19 Vaccine Pfi zer - Documentation Purposes Only Griselda Hastings Other [facility] 12-30-2020 COVID-19 Vaccine Pfi zer - Documentation Purposes Only Griselda Hastings Other [facility] 01-24-2016 KENALOG - 10 mg Griselda Hastings Other [facility] Other 01-27-2015 Toradol per 15 mg Griseldakeith Mendezs Other [facility] Other 03-15-2014 tetanus toxoid, redu julienne diphtheria toxoid, and acellular pertussis vaccine, adsorbed Griselda Hastings Other [facility] Other Payers Date Payer Category Payer Self-pay [id number] 2024 Medicare [id number]. [id number] 2024 Medicare [id number] 2023 Managed Care (Private) [facility] [id number]. [id number] 2022 Private Health Insurance [id number] 2.16.840.1.686459.19 2021 Private Health Insurance [facility] [employer] GENERIC [id number] 2021-Present [phone] [address] [place] [address] PPO [id number]. [id number] 2019 Medicaid [employer] [id number] 2019-Present [phone] [address] [place] [address] Medicaid [id number] [id number]. [id number] 2019 Medicaid [id number]. 1.13.159.2. [id number] 2019 Private Health Insurance 1.2 .840.701245.1.13.159.2. 7.3.442391.315 2019 Unknown [id number] 2019 Unknown 2019 Unknown [id number] 2.16.840.1.833788.19 1962 Unknown [id number] 2.16.840.1.844171.3.579.2. 693 1962 Unknown [id number] 2.16.840.1.225705.3.579.2. 182 1962 Unknown [id number] 2.16.840.1.683845.3.579.2. 182 1962 Unknown [id number] 2.16.840.1.021311.3.579.2. 124 1962 Unknown [id number] 2.16.840.1.815624.3.579.2. 1244 1962 Unknown [id number] 2.16.840.1.971908.3.579.2. 1245 1962 Unknown [id number] 2.16.840.1.843489.3.579.2. 1245 1962 Unknown [id number] 2.16.840.1.229673.3.579.2. 1244 1962 Unknown [id number] 2.16.840.1.374076.3.579.2. 1244 1962 Unknown [id number] 2.16.840.1.730063.3.579.2. 1244 1962 Unknown [id number] 2.16.840.1.289392.3.579.2. 1244 1962 Unknown [id number] 2.16.840.1.277529.3.579.2. 1244 1962 Unknown [id number] 2.16.840.1.099816.3.579.2. 1244 1962 Unknown [id number] 2.16.840.1.381705.3.579.2. 1244 1962 Unknown [id number] 2.16.840.1.335723.3.579.2. 1245 1962 Unknown [id number] 2.16.840.1.378241.3.579.2. 1245 1962 Unknown [id number] 2.16.840.1.977387.3.579.2. 1245 1962 Unknown [id number] 2.16.840.1.441118.3.579.2. 1243 1962 Unknown [id number] 2.16.840.1.110425.3.579.2. 1243 1962 Unknown [id number] 2.16.840.1.275640.3.579.2. 1243 1962 Unknown [id number] 2.16.840.1.995320.3.579.2. 1962 Unknown [id number] 2.16.840.1.304137.3.579.2. 1962 Unknown [id number] 2.16.840.1.578367.3.579.2. 196 1962 Unknown [id number] 2.16.840.1.003010.3.579.2. 196 1962 Unknown [id number] 2.16.840.1.879319.3.579.2. 1962 Unknown [id number] 2.16.840.1.131754.3.579.2. 1962 Unknown [id number] 2.16.840.1.711230.3.579.2. 1258 1962 Unknown [id number] 2.16.840.1.235454.3.579.2. 1258 1962 Unknown [id number] 2.16.840.1.377700.3.579.2. 1258 1962 Unknown [id number] 2.16840.1.491314.3.579.2. 1258 1962 Unknown [id number] 2.16840.1.214619.3.579.2. 1258 1962 Unknown [id number] 2.16.840.1.539939.3.579.2. 1258 1962 Unknown [id number] 2.16.840.1.385909.3.579.2. 1258 1962 Unknown [id number] 2.16840.1.828525.3.579.2. 1258 1962 Unknown [id number] 2.16.840.1.765387.3.579.2. 1258 1962 Unknown [id number] 2.16.840.1.507886.3.579.2. 1259 Private Health Insurance [id number] Unknown [id number] Unknown [id number] 2.16.840.1.168346.3.579.2. 531 Unknown [id number] 2.16.840.1.062832.3.579.2. 531 Unknown [id number] 2.16.840.1.861932.3.579.2. 531 Unknown [id number] 2.16.840.1.382705.3.579.2. 531 Unknown [id number] 2.16.840.1.752567.3.579.2. 531 Unknown [id number] 2.16.840.1.208716.3.579.2. 531 Unknown [id number] 2.16.840.1.014501.3.579.2. 531 Unknown [id number] 2.16.840.1.369896.3.579.2. 531 Unknown [id number] 2.16.840.1.628818.3.579.2. 531 Social History Date Type Detail Facility Start: 04-29-2018 End: 11-05-2024 Tobacco smoking status [facility] Smoker (finding) [facility] Start: 1960 Sex Assigned At Male [facility] Start: 10-16-2019 Tobacco smoking status CTIS Ex-smoker [facility] Start: 06-18-1973 History of tobacco use Cigarette Smoker [facility] Start: 10-16-2019 End: 09-24-2024 Cigarettes smoked current (pack per day) - Reported 1.5 [facility] Start: 10-16-2019 End: 01-02-2024 Tobacco use and exposure Smokeless tobacco non-user [facility] Start: 10-14-2020 End: 01-08-2025 Alcohol intake Ex-drinker (finding) [facility] Start: 01-20-2019 History SDOH Alcohol Comment quit 2002 [facility] Start: 10-16-2019 Tobacco Comment quit smoking 01/2019 [facility] Start: 1960 Sex Assigned At Not on file [facility] Start: 10-03-2021 End: 10-13-2024 Exposure to SARS-CoV-2 (event) Not sure [facility] Start: 07-03-2023 End: 09-24-2024 Sex Assigned At [facility] [place] Start: 03-10-2022 End: 03-20-2022 Exposure to SARS-CoV-2 (event) Unable to assess [facility] Work Phone: Start: 12-28-2022 End: 11-05-2024 Daily Smoker S [place] Start: 03-13-2023 Tobacco Comment 6-10 cigarettes/day [facility] Start: 09-20-2022 Gender identity Identifies as male gender (finding) [facility] Start: 09-20-2022 Sexual orientation Heterosexual (fin ding) [facility] Tobacco smoking status NHIS Tobacco smoking consumption unknown [facility] Work Phone: Start: 10-05-2023 End: 01-03-2024 Alcoholic beverage intake Lifetime non-drinker (finding) [facility] Work Phone: Adult Depression Screening Assessment 2 [facility] How often to you hav e a drink containing alcohol? Never [facility] In the past 12 months, was there a time when you were not able to pay the mortgage or rent on time? No [facility] Work Phone: Start: 04-28-2024 End: 11-25-2024 Sex Male (finding) [facility] NEGATED: Highlighted rowStart: NINF History of tobacco use Passive smoker [facility] Work Phone: Medical Equipment Procedure Code Equipment Code Equipment Origin al Text Equipment Identifier Dates Angiogram, lower extremity, left Multiple peripheral artery stent, bare-metal [id number] Start: 05-07-2023 Allograft, Triad Lordotic 6 X 11 X 14 - [id number] - [id number] Start: 04-09-2024 Allograft, Triad Lordotic 6 X 11 X 14 - [id number] - [id number] Start: 04-09-2024 Plate, Acp, 1.6v , 2 Level, 34mm - [id number] Start: 04-09-2024 Screw, Acp, Self Drill, 3.5 X 17mm, Variable - [id number] Start: 04-09-2024 3.5 X 19mm Screw [id number] Start: 04-09-2024 Comment on above: Description: per juan carlos l only jdr 04/10 Goals Date Patient Goal Desired Activity /State Personal health goal Functional Status Date Assessment Result Facility 10-13-2024 Patient Health [facility] ionnaire 2 item (PHQ-2) [Reported] [facility] Work Phone: 10-13-2024 PHQ-9 quick depressi on assessment panel [Reported.PHQ] [facility] Work Phone: Clinical Notes 11-03-2008 to [...] in all four extremities, including at least digital marketing officer, finger abductors, biceps, triceps, deltoid, toe flexors [...] hungover or groggy. documented in this encounter [facility] 02-19-2025 Evaluation note Authored February 19, 2025 5:18pm Sooner if needed, the ER if concerns,The above note written by Shilpi Lantigua LPN acting as human recorder, note dictated by Dr. Griselda Hastings [facility] Work Phone: 1(185) 748-942509-04-2025 Evaluation note* Author Shilpi Lantigua [facility] Authored February 19, 2025 5:18pm Sooner if needed, the ER if concerns,The above note written by Shilpi Lantigua LPN acting as human recorder, note dictated by Dr. Griselda Hastings Author Curtis Covarrubias [facility] Authored April 01, 2025 1 :58pm The above note written by YOBANI Pollock acting as human recorder, note dictated by Dr.Brett Hastings. [facility] Work Phone: 1(317) 666-410108-20-2025 History of Present illness Narrative* Oziel Cadena [...] to alleviate the pain. documented in this encounterResearch Psychiatric [id number] Evaluation note* Diagnosis Onset Date Resolution Status [...] prostate cancer acute February 19, 2025 10:28am [facility] Work Phone: 1(950) 148-891107-24-2025 History of Present illness Narrative* QUENTIN V[place] [...] INFLAMED SEBORRHEIC KERATOSIS Left Wrist - Anterior [place] and brown stuck on verrucous scaly papule [...] limited to risks of scarring, darker or body maker pigmentary changes, recurrence, incomplete removal and infection. [...] limited to risks of scarring, darker or body maker pigmentary changes, recurrence, incomplete removal and infection. [...] 1 year, skin check documented in this encounterResearch Psychiatric [id number] History of Present illness Narrative* Oziel Cadena [...] cord stimulator, as suggested by his paint spray inspector, and is scheduled to see his doctor [...] Jocelyn Arango(R) acting under the direction of Oziel Cadena [...] injection was administered today. documented in this encounterResearch Psychiatric [id number] Evaluation note* Author Shilpi Lantigua [facility] Authored November 19, 2024 2:36p m Sooner if needed, the ER if concerns,The above note written by Shilpi Lantigua LPN acting as human recorder, note dictated by Dr. Griselda Hastings [facility] Work Phone: 1(800) 420-448605-28-2025 History of Present illness Narrative* Oziel Cadena [...] ezetimibe (ZETIA) 10 mg, Oral, Daily HYDROcodone-acetaminophen ([place]) 5-325 MG tablet take 1 tablet orally [...] Depression: Not at risk (11/05/2024) Received from [facility] PHQ-2 PHQ-2 score: 2 REVIEW OF [...] Ana Luisa's absent. Ankle clonus absent. Coordination Tnokik-me-eehk, rapid alternating movements and txmf-oq-dyhh normal bilaterally without dysmetria. Gait Normal casual, [...] the injections if needed. documented in this encounterResearch Psychiatric [id number] NoteHNO ID: [id number] Author: RACQUEL COLE MD Service: ? Author Type: Physician Type: Progress Notes Filed: 11/07/2024 11:09 Note Text: NAME: Shantel Melendez CLINIC NO.: [id number] DATE OF SERVICE: November 07, 2024 (Curtis) Some elements in this clinic note that are critical to medical decision making have been carefully reviewed and included from a prior clinic note dated: November 02, 2023 (Curtis) Referring Provider: Griselda Hastings DO Additional Clinicians involved in Shantel Melendez's care: Dr Kimberly Nichole ENT, Dr. 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 10/05/2021 - MRI Brain: [facility] There is T2 and T2 flair hyperintense [...] microvascular ischemic change. 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 [...] Melendez DATE: November 03, 2024 TIME: 8:13 [facility]05-19-2025 NoteHNO ID: [id number] Author: SALLY DOYLE RT(R) Service: ? Author [...] PATIENT PRESENTS WITH AN IMPLANTABLE OR ATTACHED HANDHOLE MACHINE OPERATOR: No RADIOLOGY DEPARTMENT: CT; Exam(s) Completed: Chest and Neck PERIPHERAL IV DATA: Site assessment: Clean,Dry and Intact, Site disposition Discontinued SIGNED BY: RT Craig(R) November 03, 2024 8:32 [facility]05-19-2025 Telephone encounter Note* Telephone Encounter - Curtis Da Silva RN - 11/03/2024 7:49 AM EDT Please sign pended labs for 1 year f/u-will draw with CT today Thank You! Curtis Da Silva RN [facility]05-19-2025 Miscellaneous Notes* Telephone Encounter - Curtis Da Silva RN - 11/03/2024 7:49 AM EDT Please sign pended labs for 1 year f/u-will draw with CT today Thank You! Curtis Da Silva RN [facility] History of Present illness Narrative* Doretha [...] assess the C7 screw. Doretha Harris MD Administrative Fellow of Neurosurgery [facility] [place] [facility] Neuroscience ICU Office: [phone] [1] Past Surgical History: Procedure Laterality Date [...] 60 capsule, Rfl: 0 documented in this [facility] Work Phone: 1(233) 435-997104-21-2025 [facility] [place] [address] [place] [address] CT Scan Report Signed Patient: Shantel Melendez MR#: [id number] : 1960 Acct:[id number] Age/Sex: 63 / M ADM Date: 5 Loc: ER Room: Type: [facility] ER Attending Dr: Copies to: Manisha [...] Dorothy Eubanks M.D.10/06/2024 4:08 PM Dictation Location: [place] [address] Transcribed By: MARISA 10/06/24 0733 Dictated By: Dorothy Eubanks MD 10/06/24 1556 Signed By: 10/06/24 1609 [facility] Work Phone: 1(493) 438-117904-21-2025 [facility] [place] [address] [place] [address] CT Scan Report Signed Patient: Shantel Melendez MR#: [id number] : 1960 Acct:[id number] Age/Sex: 63 / M ADM Date: 5 Loc: ER Room: Type: [facility] ER Attending Dr: Copies to: Manisha [...] Dorothy Eubanks M.D.10/06/2024 3:56 PM Dictation Location: [place] [address] Transcribed By: MARISA 10/06/24 1556 Dictated By: Dorothy Eubanks MD 10/06/24 1551 Signed By: 10/06/24 1556 [facility] Work Phone: 1(888) 472-518103-27-2025 Evaluation note* Diagnosis Onset Date Resolution Status Admit Date Current every day smoker acute September 11, 2024 8:53am PAD (peripheral artery disease) acut e September 11, 2024 8:53am Right leg claudication acute [facility] 2024 8:53am [facility] Work Phone: 1([phone] 846-161203-27-2025 Evaluation note* Diagnosis Onset Date Resolution Status Admit Date Current every day smoker acute September 11, 2024 8:53am PAD (peripheral artery disease) acut e September 11, 2024 8:53am Right leg claudication acute [facility] 2024 8:53am Cardiac arrhythmia acute October 272024 9:37am Essential hypertension acute Ma 2024 9:37am Hyperlipidemia acute October 27, 2024 9:37am 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, 2024 9:37am PAD (peripheral artery disease) sophy mone October 27, 2024 9:37am [facility] Work Phone: 1(149) 986-811003-27-2025 Evaluation note* Diagnosis Onset Date Resolution Status Admit Date Current every day smoker acute September 11, 2024 8:53am PAD (peripheral artery disease) acut e September 11, 2024 8:53am Right leg claudication acute [facility] 2024 8:53am Abdominal pain acute September 1:02pm [...] 1:57pm Dysphagia acute November 17, 2024 1:57pm [facility] Work Phone: 1(859) 367-715803-27-2025 Evaluation note* Diagnosis Onset Date Resolution Status [...] infection) acute November 19, 2024 2 :26pm [facility] Work Phone: [phone]) 762-546903-27-2025 History of Present illness Narrative* Oziel Cadena [...] ezetimibe (ZETIA) 10 mg, Oral, Daily HYDROcodone-acetaminophen (Milroy) 5-325 MG tablet take 1 tablet orally [...] Depression: Not at risk (06/30/2024) Received from [facility] PHQ-2 Patient Health Questionnaire-2 Score: 2 [...] Ana Luisa's absent. Ankle clonus absent. Coordination Gxmyym-vc-eufx, rapid alternating movements and ajjr-jn-jbtx normal bilaterally without dysmetria. Gait Normal casual, [...] the injections if needed. documented in this encounterResearch Psychiatric [id number] History of Present illness Narrative* Oziel Cadena [...] ezetimibe (ZETIA) 10 mg, Oral, Daily HYDROcodone-acetaminophen (Milroy) 5-325 MG tablet take 1 tablet orally [...] Depression: Not at risk (06/30/2024) Received from [facility] PHQ-2 Patient Health Questionnaire-2 Score: 2 [...] the injections if needed. documented in this encounterResearch Psychiatric [id number] Evaluation note* Author Shilpi Lantigua [facility] Authored July 03, 2024 4 :44pm Sooner if needed, the ER if concerns,The above note written by Shilpi Lantigua LPN acting as human recorder, note dictated by Dr. Griselda Hastings [facility] Work Phone: 1([phone]) 505-431201-15-2025 History of Present illness Narrative* Oziel Cadena [...] ezetimibe (ZETIA) 10 mg, Oral, Daily HYDROcodone-acetaminophen (Milroy) 5-325 MG tablet take 1 tablet orally [...] Depression: Not at risk (06/30/2024) Received from [facility] PHQ-2 Patient Health Questionnaire-2 Score: 2 [...] injections at that time. documented in this encounterResearch Psychiatric [id number] History of Present illness Narrative* Doretha Harris [...] another set of XR. Doretha Harris MD Administrative Fellow of Neurosurgery [facility] [place] [facility] Neuroscience ICU Office: [phone] Scribe Attestation By signing my name below, I, Shira Francy, Scribe, attest that this documentation has been preparedunder the direction and in the presence of Doretha Harris MD. documented in this [facility] Work Phone: 1([phone]) 785-989612-04-2024 History of Present illness Narrative* Oziel Cadena [...] ezetimibe (ZETIA) 10 mg, Oral, Daily HYDROcodone-acetaminophen (Milroy) 5-325 MG tablet take 1 tablet orally [...] Depression: Not at risk (04/09/2024) Received from [facility] PHQ-2 Patient Health Questionnaire-2 Score: 0 [...] his injections if needed. documented in this encounterResearch Psychiatric [id number] History of Present illness Narrative* Solomon Narayanan PA-C - 04/30/2024 1:00 PM EST Images from the original note were not included. [facility] [place] Department of Neurological Surgery Post Operative Patient [...] CAD (coronary artery disease) Peripheral vascular disease ([facility]) Past Medical History: Diagnosis Date Anxiety Cataract s/p excision of left Cervical radiculopathy Chronic pain disorder Coronary artery disease Depression Dysphagia thin liquids Hypertension NPH (normal pressure hydrocephalus) ([facility]) PAD (peripheral artery disease) ([facility]) s/p stent (05/2023) on ASA 81mg Peripheral vascular disease ([facility]) Pontine lesion watchful waiting Pulmonary nodule Skin cancer of scalp s/p excsison Spinal stenosis severe cervical stenosis, left sided foraminal stenosis at C5-6 and C6-7 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 Tongue cancer ([facility]) s/p resection Vision loss Past Surgical [...] directly. Sincerely, RICH Hernandez PA-C Associate Physician Flexible Nanny, Neurosurgery Clinical Administrative Fellow [facility] [place] [address] documented in this [facility] Work Phone: [phone]) 537-641011-11-2024 Evaluation note* Diagnosis Onset Date Resolution Status [...] prostate cancer acute July 03, 2024 9:23am [facility] Work Phone: 1([phone]) 212-349410-24-2024 Hospital course Narrative* Aaron Gallo PA-C - [...] HYDROcodone-acetaminophen 5-325 mg tablet; Commonly known as: Milroy tiZANidine 4 mg capsule; Commonly known as: Zanaflex Outpatient Follow-Up Future Appointments Date Time Provider Department Center 04/30/2024 1:00 PM Solomon Narayanan PA-C [id number] [place] 05/02/2024 9:00 AM [facility] SCC PET MRI [facility] [place] 05/02/2024 10:00 AM Helder Jack MD [id number] [facility] 06/30/2024 9:00 AM Doretha Harris MD [id number] [place] Aaron Gallo PA-C documented in this [facility] Work Phone: [phone] 485-483710-24-2024 History of Present illness Narrative* iNkole Lezama, PharmD - 04/10/2024 12:11 PM EDT Pharmacy Medication History Review Shantel Melendez is a 63 y.o. male admitted for Cervical radiculopathy. Pharmacy reviewed the patient's zxutk-xm-kjylkrseq medications and allergies for accuracy. Medications ADDED: norco Medications CHANGED: Tizanidine nightly to as needed Medications REMOVED: Diamox Albuterol The list below reflects the updated STATISTICIAN MATHEMATICAL list. Prior to Admission Medications Prescriptions Last Dose Informant HYDROcodone-acetaminophen (Milroy) 5-325 mg tablet Self Sig: Take 1.5 [...] Report Patient interview (good historian-required some prompting) [facility] medical note 01/29 Additional Comments: none Nikole Lezama PharmD Transitions of Care Pharmacist 04/10/24 Secure Chat preferred If no response call [phone] or Vocera Med Rec * Tori Johnson, OT - 04/10/2024 11:57 AM EDT Occupational Therapy Evaluation Patient Name: Shantel Melendez Today's Date: 04/10/2024 Room: [address] [place] [address] Time Calculation Start Time: 1019 Stop Time: 1032 Time Calculation (min): 13 min Assessment IP OT Assessment OT Assessment: Pt presents is at OF and reports improved overall condition since surgery. 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 [...] LUE: Within Functional Limits Outcome Measures: [facility] Daily Activity Putting on and taking [...] 11:57 AM TORI JOHNSON OT Rehab Office: [phone] * Tia Caceres, PT - 04/10/2024 10:33 AM EDT Physical Therapy Physical Therapy Evaluation Patient Name: Shantel Melendez Department: [place] [address] Room: [address] [place] [address] Today's Date: 04/10/2024 Time Calculation Start Time: [...] Prior Function Per Pt/Caregiver Report Level of Luce: (independent ambulation in/outdoors no device, independent stairclimbing as needed, no falls) ADL Assistance: Independent Homemaking Assistance: Independent Ambulatory Assistance: Independent 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 documented in this [facility] Work Phone: [phone]) 512-222510-23-2024 Plan of care note* Care Plan - [...] goals for the shift include pain management. [facility] Work Phone: [phone]) 576-240310-23-2024 Miscellaneous Notes* Care Plan - Elizabeth Esposito [...] (B) Operative Note Date: 04/09/2024 OR Location: [facility] OR Name: Shantel Melendez, : 1960, Age: 63 y.o., , Sex: male Diagnosis Pre-op Diagnosis * Cervical radiculopathy [M54.12] * Senile osteoporosis [M81.0] Post-op Diagnosis * Cervical radiculopathy [M54.12] * Senile osteoporosis [M81.0] Procedures Fusion Spine Anterior Cervical and Discectomy C5-6, C6-7 54311 - CT ARTHRD ANT INTERBODY DECOMPRESS CERVICAL BELW C2 CT ARTHRD ANT INTERBODY DECOMPRESS CERVICAL BELW C2 [98520] CT ARTHRD ANT INTERDY CERVCL BELW C2 EA ADDL NTRSPC [25477] CT ALLOGRAFT FOR SPINE SURGERY ONLY STRUCTURAL [36455] CT MICROSURG TQS REQ USE OPERATING MICROSCOPE [73359] Surgeons * Doretha Harris - Primary Resident/Fellow/Other Flexible Nanny: Surgeons and Role: * Chicho Bryan MD [...] 85 mL Specimen: No specimens collected Staff: Executive Legal Secretary: Derrell Scrub Person: Beverly Scrub Person: Shaina Drains and/or Catheters: Closed/Suction Drain 1 Neck Bulb 10 Fr. (Active) Urethral Catheter Double-lumen;Non-latex 16 Fr. (Active) Tourniquet Times: Implants: Implants Type Name Action Serial No. Spinal Hardware SCREW, DISTRACTION, 14 MM - [id number] Used, Not Implanted Spinal Hardware ALLOGRAFT, TRIAD LORDOTIC 6 X 11 X 14 - [id number] - [id number] Implanted [id number] Spinal Hardware ALLOGRAFT, TRIAD LORDOTIC 6 X 11 X 14 - [id number] - [id number] Implanted [id number] Spinal Hardware PLATE, ACP, 1.6V, 2 LEVEL, 34MM - [id number] Implanted Spinal Hardware SCREW, ACP, SELF DRILL, 3.5 X 17MM, VARIABLE - [id number] Implanted 3.5 X 19MM SCREW Implanted Findings: [...] then placed our self-retaining retractor in and [place] pins in and placed the disc space [...] 04/09/2024 4:50 PM EDT documented in this [facility] Work Phone: [phone]) 546-668110-23-2024 Nurse Note* Shantelle Pacheco RN - 04/09/2024 7:03 PM EDT Patient transferred from PACU to [place] via stretcher in stable condition. Patient oriented to room, bed, and call light. Skin assessment witnessed by Brianda Dowling RN. Will continue to monitor. [facility]10-23-2024 Nurse Note* Shantelle Pacheco RN - 04/09/2024 7:03 PM EDT Patient transferred from PACU to [id number] via stretcher in stable condition. Patient oriented to room, bed, and call light. Skin assessment witnessed by Brianda Dowling RN. Will continue to monitor. documented in this [facility] Work Phone: 1(810) 193-456010-23-2024 Hospital Note* Hospital Course - Aaron Gallo PA-C - 04/09/2024 5:04 PM EDT 63M h/p HTN, CAD, PAD s/p stent on ASA81, pontine glioma, tongue cancer p/w LUE radiculopathy, 04/09 s/p C5-7 ACDF 04/10 PT/OT DC recs no needs, post operative xray shows good position, Drain removed [facility] Work Phone: [phone] Note* Op Note - Chicho Bryan MD - 04/09/2024 2:30 PM EDT Fusion Spine Anterior Cervical and Discectomy C5-6, C6-7 (B) Operative Note Date: 04/09/2024 OR Location: [facility] OR Name: Shantel Melendez, : 1960, Age: 63 y.o., , Sex: male Diagnosis Pre-op Diagnosis * Cervical radiculopathy [M54.12] * Senile osteoporosis [M81.0] Post-op Diagnosis * Cervical radiculopathy [M54.12] * Senile osteoporosis [M81.0] Procedures Fusion Spine Anterior Cervical and Discectomy C5-6, C6-7 14712 - CT ARTHRD ANT INTERBODY DECOMPRESS CERVICAL BELW C2 CT ARTHRD ANT INTERBODY DECOMPRESS CERVICAL BELW C2 [07676] CT ARTHRD ANT INTERDY CERVCL BELW C2 EA ADDL NTRSPC [66760] CT ALLOGRAFT FOR SPINE SURGERY ONLY STRUCTURAL [16561] CT MICROSURG TQS REQ USE OPERATING MICROSCOPE [37023] Surgeons * Doretha Harris - Primary Resident/Fellow/Other Flexible Nanny: Surgeons and Role: * Chicho Bryan MD - Resident - Assisting * Rojas Edwards MD - Resident - Assisting Procedure Summary Anesthesia: General ASA: III Anesthesia Staff: Anesthesiologist: Fred Cheek MD C-AA: Shelly Mullins Capp [facility]; NAVEEN Reddy IVONE: Jamee Woodall Estimated Blood [...] 85 mL Specimen: No specimens collected Staff: Executive Legal Secretary: Derrell Scrub Person: Beverly Scrub Person: Shaina Drains and/or Catheters: Closed/Suction Drain 1 Neck Bulb 10 Fr. (Active) Urethral Catheter Double-lumen;Non-latex 16 Fr. (Active) Tourniquet Times: Implants: Implants Type Name Action Serial No. Spinal Hardware SCREW, DISTRACTION, 14 MM - [id number] Used, Not Implanted Spinal Hardware ALLOGRAFT, TRIAD LORDOTIC 6 X 11 X 14 - [id number] - [id number] Implanted [id number] Spinal Hardware ALLOGRAFT, TRIAD LORDOTIC 6 X 11 X 14 - [id number] - [id number] Implanted [id number] Spinal Hardware PLATE, ACP, 1.6V, 2 LEVEL, 34MM - [id number] Implanted Spinal Hardware SCREW, ACP, SELF DRILL, 3.5 X 17MM, VARIABLE - [id number] Implanted 3.5 X 19MM SCREW Implanted Findings: [...] then placed our self-retaining retractor in and [place]on pins in and placed the disc space [...] Harris MD at 04/09/2024 4:50 PM EDT [facility] Work Phone: [phone] Attending History and physical note* Rojas Edwards MD - 04/09/2024 12:22 PM EDT H&P reviewed. The patient was examined and there are no changes to the H&P. Cosigned by Doretha Harris MD at 04/09/2024 12:53 PM EDT Source Note - Rick Mckinney APRN-PEST CONTROLLER - 03/26/2024 10:30 AM EDT Images from [...] pressure hydrocephalus) (Multi) PAD (peripheral artery disease) ([facility]) s/p stent (05/2023) on ASA 81mg Peripheral vascular disease ([facility]) Pontine lesion watchful waiting Pulmonary nodule Skin [...] Flowsheet Row Pre-Admission Testing from 02/11/2024 in [facility] Questionnaire Series Submission from 02/06/2024 in [facility] with Generic Provider Laura Can [...] at 02/11/2024 1418 5.5 filed at 02/06/2024 003 Can you run a short distance? 0 filed at 02/11/2024 1418 8 filed at 02/06/2024 0032 Can you do light work around the house like dusting or washing dishes? 2.7 filed at 02/11/2024 13628.7 filed at 02/06/2024 003 Can you do moderate work around the house like vacuuming, sweeping floors or carrying groceries? 3.5 filed at 02/11/2024 1418 3.5 filed at 02/06/202431 Can you do heavy work around the house like scrubbing floors or lifting and moving heavy furniture?0 filed at 02/11/2024 1418 8 filed at 02/06/202431 Can you do [...] Flowsheet Row Pre-Admission Testing from 02/11/2024 in [facility] DVT Score 11 filed at 02/11/2024 1506 BMI 30 or less filed at 02/11/2024 1506 RETIRED: Current Status Major surgery planned, lasting over 3 hours filed at 02/11/2024 1506 RETIRED: History Prior major surgery, Previous malignancy filed at 02/11/2024 1506 RETIRED: Age 60-75 years filed at 02/11/2024 1506 Modified Frailty Index Flowsheet Row Pre-Admission Testing from 02/11/2024 in [facility] Non-independent functional status (problems with dressing, bathing, personal grooming, or cooking) 0 filed at 02/11/2024 1505 History of diabetes mellitus 0 filed at 02/11/2024 1505 History of COPD 0 filed at 02/11/2024 1505 History of CHF No filed at 02/11/2024 1505 History of NC 0 filed at 02/11/2024 1505 History of [...] Flowsheet Row Pre-Admission Testing from 02/11/2024 in [facility] High-Risk Surgery (Intraperitoneal, Intrathoracic,Suprainguinal vascular) 0 filed at 02/11/2024 1505 History of ischemic heart disease (History of NC, History of positive exercuse test, Current chest [...] Flowsheet Row Pre-Admission Testing from 02/11/2024 in [facility] Smoking status 0 filed at 02/11/2024 1506 [...] Flowsheet Row Pre-Admission Testing from 03/26/2024 in [facility] Pre-Admission Testing from 02/11/2024 in [facility] Do you snore loudly? 0 filed at [...] Yellow, Dark-Yellow Appearance, Urine Clear Clear Specific [place], Urine 1.007 1.005 - 1.035 pH, Urine [...] Rate 63 BPM Atrial Rate [address] Interval 268 ms QRS Duration 74 ms QT Interval 406 ms QTC Calculation(Bazett) 415 ms P [place] 58 degrees R [place] -3 degrees T [place] 18 degrees QRS Count 10 beats Q [...] given to patient. Neurosurgery: Doretha Harris MD [facility] 01/03/24 seen for cervical radiculopathy. Neurosurgery: Jose Cruz Khan MD [facility] 11/05/23- [facility] seen for cervical stenosis of spine. Oncology: Helder Jack MD [facility] 12/13/23 seen for incidental pontine lesion- appears to be low-grade. HEENT/Airway The patient has history of selective right neck dissection (II-V) and bilateral base of tongue/linguial tonsillar excision on 01/30/[address] 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 Currently with limited neck extension. No documented or reported history of airway difficulty. HemOnc: Racquel Cole MD [facility] 11/02/23-[facility] seen for head and neck cancer. [...] Cardiology Evaluation Cardiology: Lilliam Cason MD - [facility] (see media tab for last office note) [...] ofpreoperative instructions. After Visit Summary given. [facility] Work Phone: 1(123) 976-975210-23-2024 History and physical note* Rojas Edwards MD - 04/09/2024 12:22 PM EDT H&P reviewed. The patient was examined and there are no changes to the H&P. Cosigned by Doretha Harris MD at 04/09/2024 12:53 PM EDT Source Note - Rick BAILEY Mckinney-PEST CONTROLLER - 03/26/2024 10:30 AM EDT Images from [...] pressure hydrocephalus) (Multi) PAD (peripheral artery disease) ([facility]) s/p stent (05/2023) on ASA 81mg Peripheral vascular disease ([facility]) Pontine lesion watchful waiting Pulmonary nodule Skin [...] Father Throat cancer Father Allergies Allergen Reactions Sandra Chu Prior to Admission medications Medication Sig Start [...] Flowsheet Row Pre-Admission Testing from 02/11/2024 in [facility] Questionnaire Series Submission from 02/06/2024 in [facility] with Generic Provider Laura Can [...] or washing dishes? 2.7 filed at 02/11/2024 18479.7 filed at 02/06/2024 0032 Can you do [...] Flowsheet Row Pre-Admission Testing from 02/11/2024 in [facility] DVT Score 11 filed at 02/11/2024 1506 BMI 30 or less filed at 02/11/2024 1506 RETIRED: Current Status Major surgery planned, lasting over 3 hours filed at 02/11/2024 1506 RETIRED: History Prior major surgery, Previous malignancy filed at 02/11/2024 1506 RETIRED: Age 60-75 years filed at 02/11/2024 1506 Modified Frailty Index Flowsheet Row Pre-Admission Testing from 02/11/2024 in [facility] Non-independent functional status (problems with dressing, bathing, personal grooming, or cooking) 0 filed at 02/11/2024 1505 History of diabetes mellitus 0 filed at 02/11/2024 1505 History of COPD 0 filed at 02/11/2024 1505 History of CHF No filed at 02/11/2024 1505 History of NC 0 filed at 02/11/2024 1505 History of [...] Flowsheet Row Pre-Admission Testing from 02/11/2024 in [facility] High-Risk Surgery (Intraperitoneal, Intrathoracic,Suprainguinal vascular) 0 filed at 02/11/2024 1505 History of ischemic heart disease (History of NC, History of positive exercuse test, Current chest [...] Flowsheet Row Pre-Admission Testing from 02/11/2024 in [facility] Smoking status 0 filed at 02/11/2024 1506 [...] Flowsheet Row Pre-Admission Testing from 03/26/2024 in [facility] Pre-Admission Testing from 02/11/2024 in [facility] Do you snore loudly? 0 filed at [...] Yellow, Dark-Yellow Appearance, Urine Clear Clear Specific [place], Urine 1.007 1.005 - 1.035 pH, Urine [...] Rate 63 BPM Atrial Rate [address] Interval 268 ms QRS Duration 74 ms QT Interval 406 ms QTC Calculation(Bazett) 415 ms P [place] 58 degrees R [place] -3 degrees T [place] 18 degrees QRS Count 10 beats Q [...] given to patient. Neurosurgery: Doretha Harris MD [facility] 01/03/24 seen for cervical radiculopathy. Neurosurgery: Jose Cruz Khan MD [facility] 11/05/23- [facility] seen for cervical stenosis of spine. Oncology: Helder Jack MD [facility] [facility] 12/13/23 seen for incidental pontine lesion- appears to be low-grade. HEENT/Airway The patient has history of selective right neck dissection (II-V) and bilateral base of tongue/linguial tonsillar excision on 01/30/[address] 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 Currently with limited neck extension. No documented or reported history of airway difficulty. HemOnc: Racquel Cole MD [facility] 11/02/23-[facility] seen for head and neck cancer. [...] Cardiology Evaluation Cardiology: Lilliam Cason MD - [facility] (see media tab for last office note) [...] After Visit Summary given. documented in this encounterOhioHealth O'[facility]len[facility] Work Phone: 1(246) 741-532310-15-2024 Evaluation note* Author Nida Humphreys [facility] Authored April 01, 2024 1 0:01am The above note written by Leon Humphreys LPN, acting as human recorder, note dictated by Dr. Griselda Hastings. [facility] Work Phone: 1(536) 873-608908-15-2024 Evaluation note* Author Nida Humphreys [facility] Authored January 31, 2024 10 :40am The above note written by Leon Humphreys LPN, acting as human recorder, note dictated by Dr. Griselda Hastings. Author Nidajennifer Humphreys [facility] Authored April 01, 2024 1 1:01am The above note written by Leon Humphreys LPN, acting as human recorder, note dictated by Dr. Griselda Hastings. [facility] Work Phone: 1(738) 904-889807-18-2024 History of Present illness Narrative* Doretha Harris [...] bone stimulator after surgery. Doretha Harris MD Administrative Fellow of Neurosurgery [facility] Sp[facility] Neuroscience ICU Office: [phone] Scribe Attestation By signing my name below, I, Parisa Rick , Scribe attest that this documentation has been prepared under the direction and in the presence of MD Shirley. documented in this [facility] Work Phone: 1(806) 239-639806-27-2024 History of Present illness Narrative* Helder Jack MD - 12/13/2023 10:00 AM EDT Patient ID: Shantel Melendez is a 63 y.o. male. Referring Physician: Shimon Heaton PA-C [id number] [place] [id number] Primary Care Provider: Griselda Hastings DO Subjective [...] saw Dr. Lara at the [facility]. Also pain behind left eye. [...] issues. He was off work as a [employer] for several years, but is now back to work. INTERVAL HISTORY (12/13/2023): Since the last visit, he continues to have severe neck pain, which isslowly getting worse, along with some muffled hearing on the left side. He tried going back to parttime work, but the activity made the neck pain much more severe. 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 He has now been to see a Neurosurgery PA (Solomon Narayanan) at [facility] about the neck, who thought surgical decompression was reasonable. He will see the Neurosurgeon soon to discuss the possible surgery. He has had some Botox injections into the neck and associated muscles, and has some steroid injections due next week. He tried some test shots for an Ablation procedure, but they were too painful. The ROS is as per documentation in the [facility]. Objective BSA: There is [...] Nate Benavidez 12/13/2023 9:38 AM Dictation workstation: [id number] Impression 1. Abnormal increased T2 signal in [...] will undergo a new MRI brain at [facility]. -I spent > 40 minutes in face to face consultation to review and discuss the above; 50% of whichor more was dedicated to counseling. Helder Jack MD documented in this encounterOhioHealth O'Bleness [facility] Work Phone: 1(548) 657-453706-27-2024 Instructions* Patient Instructions* Alondra Escamilla RN - 12/13/2023 10:00 AM EDT Your next appointment will be in 5 months. Please schedule your MRI prior to this visit. Please contact [phone] option 5 then option 2 with any questions or concerns. For any scheduling concerns please call [phone] option 1 documented in this encounterOhioHealth O'[facility]len[facility] Work Phone: 1(822) 151-332106-26-2024 History of Present illness Narrative* Solomon Narayanan PA-C - 12/12/2023 1:00 PM EDT Images from the original note were not included. 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 Sincerely, RICH Hernandez PA-C Associate Physician Flexible Nanny, Neurosurgery Clinical Administrative Fellow [facility] [place] [address] [place] [address] documented in this encounterOhioHealth O'[facility]leness Hospital Work Phone: 1(632) 794-697105-17-2024 Instructions* Patient Instructions* Racquel Cole MD - 11/02/2023 10:13 AM EDT Scans and labs in 1 year RTC 1 week after documented in this encounterProvidence Hospital05-17-2024 History of Present illness Narrative* Racquel Cole MD - 11/02/2023 9:45 AM EDT Images from the original note were not included. NAME: Shantel Melendez CLINIC NO.: [id number] DATE OF SERVICE: November 02, 2023 (Curtis) Some elements in this clinic note that are critical to medical decision making have been carefully reviewed and included from a prior clinic note dated: November 03, 2022 (Curtis). Referring Provider: Griselda Hastings DO Additional Clinicians involved in Shantel Melendez's care: Dr Kimberly Nichole ENT, Dr. 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 10/05/2021 - MRI Brain: [facility] There is T2 and T2 flair hyperintense [...] respiratory bronchiolitis. 01/30/2019 - Neck dissection at [facility] Base of tongue did note a [...] 2020: Doing well, still smokes, works at [employer]. Reviewed scans and there is no evidence [...] which included preparing to see the patient, skug-he-sjra patient care, completing clinical documentation, performing a medically appropriate examination, counseling and educating the patient/family/caregiver, ordering medications, tests, or p rocedures, independently interpreting results (not separately reported), communicating results to the patient/family/caregiver, and care coordination (not separately reported). Racquel Cole MD, CPE H[facility]ology [facility] Oncology Services Provided at: [place], [place] Scribe Attestation: This note was scribed [...] my direction. CC: Griselda Hastings, DO [address] [place] [id number] [address] Harris [facility] ENT[address] Dr. Nichole ENT Dr. Ibarra CT surgery [facility]. documented in this encounterProvidence Hospital05-13-2024 Evaluation note* Author Shilpi Lantigua [facility] Authored October 29, 2023 10:32 am Sooner if needed, the ER if concerns,The above note written by Shilpi Lantigua LPN acting as human recorder, note dictated by Dr. Griselda Hastings [facility] Work Phone: 1([phone]) 430-522105-10-2024 History of Present illness Narrative* Curtis Da [...] PATIENT PRESENTS WITH AN IMPLANTABLE OR ATTACHED HANDHOLE MACHINE OPERATOR: No RADIOLOGY DEPARTMENT: CT; Exam(s) Completed: Chest and Neck PERIPHERAL IV DATA: Site assessment: Clean,Dry and Intact, Site disposition Discontinued SIGNED BY: RT Craig(Neisha) October 26, 2023 10:07 AM documented in this encounterProvidence Hospital04-19-2024 History of Present illness Narrative* Helder Jack MD - 10/05/2023 9:30 AM EDT Patient ID: Shantel Melendez is a 62 y.o. male. Referring Physician: No referring provider defined for this encounter. Primary Care Provider: Griselda Hastings DO Subjective History of Present Ilness: 62 y.o. presents in neurosurgical consultation from [facility] for cervical stenosis.C/o neck pain and LUE pain, numbness and weakness down to hand for 2 years. SawNeurosurgeon at and has had 2 spinal taps with some improvement. Went to [facility] to be assessed for hydrocephal;us and was told he does not have hydrocephalus. He saw Dr. Lara at the [facility]. Also pain behind left eye. [...] issues. He was off work as a [employer] for several years, but is now back to work. The ROS is as per documentation in the [facility]. Objective BSA: 1.93 meters squared Ht 1.722 [...] counseling. Helder Jack MD documented in this encounterOhioHealth O'[facility] Work Phone: 1(457) 568-226504-19-2024 Instructions* Patient Instructions* Adriana Thomas RN - 10/05/2023 9:[address] Jack will present your case at Tumor Board next Sunday. Someone from the office will call you that day or about your plan. Please call us with any questions or concerns at [phone] opt. 5, opt. 2 For scheduling concerns please call [phone] option 1 documented in this encounterOhioHealth O'[facility] Work Phone: 1(908) 510-335002-28-2024 Evaluation note* Author Curtis Covarrubias [facility] Authored August 15, 2023 5:19pm The above note written by Serafin Flood acting as human recorder, note dictated by Dr. Griselda Hastings . [facility] Work Phone: [phone]) 454-826902-28-2024 Evaluation note* Author Curtis Olmosolson [facility] Authored August 15, 2023 5:19pm The above note written by Serafin Flood acting as human recorder, note dictated by Dr. Griselda Hastings . Author Shilpi Lantigua [facility] Authored October 29, 2023 10:32 am Sooner if needed, the ER if concerns,The above note written by Shilpi Lantigua LPN acting as human recorder, note dictated by Dr. Griselda Hastings [facility] Work Phone: 1(306) 653-836701-15-2024 Evaluation note* Encounter Date Diagnosis Assessment Notes [...] continue to follow with them as scheduled. [facility] Other 12-14-2023 Evaluation note* Encounter Date Diagnosis Assessment Notes Treatment Notes Treatment Clinical Notes May, PAD (peripheral artery disease) (ICD-10 - I73.9) Patient recently had angioplasty for occlusion of right iliac artery that was discovered by photoengraving proofer apprentice. He has been doing well since the [...] work before I provide him that consent. [facility] Other 12-13-2023 Evaluation note* Encounter Date Diagnosis [...] I will see him in 3 months. [facility] Other 11-28-2023 Evaluation note* Encounter Date Diagnosis [...] 3 months Apr, Lightheadedness (ICD-10 - R42) [facility] Other [id number] Procedure noteMiddletown Hospital11-16-2023 Evaluation note* Encounter Date Diagnosis Assessment [...] questions were addressed and consent was obtained. [facility] Other 11-14-2023 Evaluation note* Encounter Date Diagnosis [...] M54.2) The patient is now following with [facility]. He states he has an upcoming cervical epidural scheduled. 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 Apr, PAD (peripheral artery disease) (ICD-10 - I73.9) Arterial studies ordered by photoengraving proofer apprentice indicating peripheral artery disease. The patient does report lower extremity pain and heaviness and I recommend it would be beneficial to consult with a vascular specialist. The patient is in agreement, therefore a referral was initiated. A CTA has been ordered by neurologist , appointment pending [facility] scheduling. Apr, Hyperlipidemia (ICD-10 - E78.5) Blood [...] vocies understanding. We will continue to monitor. [facility] Other 10-26-2023 Evaluation note* Encounter Date Diagnosis Assessment Notes Treatment Notes Treatment Clinical Notes Mar, Claudication (ICD-10 - I73.9) [facility] Other 10-25-2023 Evaluation note* Encounter Date Diagnosis [...] 4 weeks Mar, Lightheadedness (ICD-10 - R42) [facility] Other 10-24-2023 Evaluation note* Encounter Date Diagnosis Assessment Notes Treatment Notes Treatment Clinical Notes Mar, Elevated blood pressure reading (ICD-10 - R03.0) [facility] Other 09-28-2023 Evaluation note* Encounter Date Diagnosis [...] infection. Feb, Burning sensation (ICD-10 - R20.8) [facility] Other 09-21-2023 Evaluation note* Encounter Date Diagnosis [...] index finger. We will continue to monitor. [facility] Other 07-13-2023 Hospital Discharge instructions Diet Plan/Instructions [...] * Discharge Physician: : Lima Joseph MD ([id number]) - Anesthesiology, Pain Management * Discharge Physician Phone: : [phone] [facility] [address], [place] [address] Special Plan/Instructions for Discharge from 12/27/2022 10:26 [...] sent to the office to be completed. [facility] Other 05-12-2023 History of Present illness Narrative* [...] with PATIENT DISCHARGED TO: Ambulatory patient, left DC department area. A Diagnostic radioactive procedure has taken place, with no further precautions necessary other than routine body substance precautions. More information regarding radiation safety can be found usingthis link: [email or web address] SIGNATURE: TABITHA Srinivasan) PATIENT NAME: Shantel Melendez DATE: October 27, 2022 TIME: 11:55 AM PAGER/CONTACT #: documented in this encounterProvidence Hospital04-07-2023 History of Present illness Narrative* TABITHA [...] Head: IAC/CPA SIGNATURE: TABITHA Kim) PATIENT NAME: Shantel Melendez DATE: September 22, 2022 TIME: 2:39 PM documented in this encounterProvidence Hospital04-05-2023 Miscellaneous Notes* Telephone Encounter - Akash [...] return call ? Yes documented in this encounterProvidence Hospital03-29-2023 Instructions* Patient Instructions* Kelly Perez PA-C [...] perform on same dariusz. documented in this encounterProvidence Hospital03-29-2023 Nurse Note* Antonia Tripathi MA - 09/13/2022 10:55 AM EDT Additional intake questions: Has the patient had fever, nausea, vomiting, diarrhea, constipation, fatigue for > 1 week? Yes, diarrhea ( 3 times in last 24 hours), fatigue, and Provider Notified Does the patient have a decreased appetite? No Does patient want to see a Collections Professional? No (yes to any of above refer [...] By: Antonia Tripathi MA documented in this encounterProvidence Hospital03-29-2023 History of Present illness Narrative* Kelly [...] or pronator drift. Coordination: Romberg sign negative. Gtqrrv-Unnc-Bfjdnq Test normal. Gait: Gait abnormal. Comments: Slightly [...] which included preparing to see the patient, chru-hw-zqgg patient care, completing clinical documentation, obtaining and/or reviewing separately obtained history, performing a medically appropriate examination, counseling and educating the pat ient/family/caregiver, ordering medications, tests, or procedures, communicating with other HCPs (not separately reported), independently interpreting results (not separately reported), communicatingresults to the patient/family/caregiver, and care coordination (not separately reported). documented in this encounterProvidence Hospital03-16-2023 Evaluation note* Encounter Date Diagnosis Assessment [...] her mid twenties. He will see the CISTERN ROOM OPERATOR at Dr. Cadena's office today, and will see the [facility] 09/13/22. I do feel pt needs his FMLA extended until 12/16/22. I encouraged him to continue to follow with these doctors, and we will continue to monitor. [facility] Other 02-14-2023 Evaluation note* Encounter Date Diagnosis [...] pain medication and fever reducers as needed. [facility] Other 01-11-2023 Evaluation note* Encounter Date Diagnosis Assessment Notes Treatment Notes Treatment Clinical Notes Jun, Other complicated headache syndrome (ICD-10 - G44.59) [facility] Other 12-09-2022 Evaluation note* Encounter Date Diagnosis [...] check on him again in 1 month. [facility] Other 10-30-2022 Hospital Discharge instructions Additional Instructions [...] week to see how you are doing. [facility] Work Phone: [phone]) 701-383810-10-2022 Miscellaneous Notes* Telephone Encounter - Racquel Cole MD - 03/27/2022 3:54 PM EDT Good with me * Telephone Encounter - Asya Reynolds RN - 03/27/2022 2:17 PM EDT Informed patient of your recommendations. He states that he is seeing neurology in [place] and they do not feel he needs [...] the weekend about an appointment with a [facility] neurosurgeon. He has not seen you since 10/2021. He states st that time you did not see the need for a neurosurgeon as his tumor wastoo small. Now he all of the sudden has an appointment with this [facility] neurosurgeon and is confused. Can you review and advise as to this appointment with the neurosurgeon. Asya Reynolds RN documented in this encounterProvidence Hospital09-29-2022 Miscellaneous Notes* Telephone Encounter - Pamela Nascimento APRN.CNP - 03/16/2022 2:51 PM EDT Time Frame: Next available Provider: Intra-axial neurosurgeon & Neuro-Oncology (same day) Referring: Racquel Cole MD Please instruct patient to hand carry/ upload images prior to appt Dx: Low grade glioma Patient: Shantel Melendez Address: Shantel Melendez [id number] [place], [place] [id number] Per Triage: Shantel Melendez is a 61 year old male that requests evaluation of previously diagnosed possible low grade glioma. Patient expectations: Second opinion Tumor Specifics: Location: brain Previous Evaluations: MRI w/wo contrast (10/05/21): 10/05/2021 MRI Brain [facility] Impression: 1. There is T2 and T2 [...] (HCC) [C71.9 (ICD-10-CM)] Order Questions Question Answer [facility] Brain Tumor [facility] Epic access? Yes documented in this encounterProvidence Hospital09-29-2022 Evaluation note* Encounter Date Diagnosis Assessment [...] see if this gives him some relief [facility] Other 08-15-2022 Evaluation note* Encounter Date Diagnosis [...] - G93.9) Patient had another MRI at [facility]. We are awaiting for [...] again next week. We are awaiting for [facility] to fax over the consult and MRI results. Jan, Neck pain (ICD-10 - M54.2) The patients neck pain is persistant but the headache has improved with a medication change. Discussed with Dr. Cadena his persistent neck pain, may need MRI of his neck and/or EMG. Due to his multiple other medications did hold off on any pain medications. [facility] Other 07-11-2022 Evaluation note* Encounter Date Diagnosis [...] blood pressure was elevated upon check in. [facility] Other 06-20-2022 Evaluation note* Encounter Date Diagnosis [...] rule out other causes of his symptoms. [facility] Other 05-24-2022 Evaluation note* Encounter Date Diagnosis [...] will complete the necessary medical disability forms. 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 Narayan, and he is now referring on to [facility]. Reviewed consult note [...] this medication. Will continue to follow up [facility] Other 05-12-2022 History of Present illness Narrative* Racquel Cole MD - 10/27/2021 5:05 PM EDT Images from the original note were not included. NAME: Shantel Melendez CLINIC NO.: [id number] DATE OF SERVICE: October 27, 2021 Some elements in this clinic note that are critical to medical decision making have been carefully reviewed and included from a prior clinic note dated: October 13, 2021 Referring Provider: Griselda Hastings DO Additional Clinicians involved in Shantel Melendez's care: Dr Kimberly Nichole ENT, Dr. Ibarra AL surgery [facility] AMBULATORY TELEPHONE VISIT Shantel Melendez has consented [...] 1.8 mm of invasive disease (Stage I, [id number], HPV+ oropharyngeal SCC).resected T1 N1 base of [...] neck dissection at [facility] HPI: Updated Visit, October 27, 2021: [...] COMP METABOLIC PANEL Racquel Cole MD, CPE [place], [place] CC: Griselda Hastings, DO [address] [id number] [address] NEW[address] ENT[address] Dr. Nichole ENT Dr. Ibarra AL surgery [facility]. documented in this encounterProvidence Hospital05-09-2022 Evaluation note* Encounter Date Diagnosis Assessment [...] him on to see Dr. Jonny Vigil. [facility] Other 05-04-2022 Miscellaneous Notes* Telephone Encounter - Haily Jovel [facility] - 10/19/2021 12:56 PM EDT [facility] Neuro Office spoke with Leslee. She states they have received patient records/referral and have patient scheduled to see Dr Narayan on 10/24. Haily Issa * Telephone Encounter - Asya Gramajo [facility] - 10/18/2021 10:34 AM EDT Records faxed. * Telephone Encounter - Haily Jovel [facility] - 10/13/2021 12:24 PM EDT Noelle: Information ready for you. Haily Jovel Pss * Telephone Encounter - Antonia Mcguire - 10/13/2021 10:33 AM EDT Referral to neurosurgery - Dr. Narayan or [facility] Noelle/Layo: Can you please refer patient and follow up? Thanks! Antonia Mcguire documented in this encounterProvidence Hospital04-28-2022 History of Present illness Narrative* Racquel Cole MD - 10/13/2021 10:19 AM EDT Images from the original note were not included. NAME: Shantel Melendez NO.: [id number] DATE OF SERVICE: October 13, 2021 Some elements in this clinic note that are critical to medical decision making have been carefully reviewed and included from a prior clinic note dated:October 14, 2020 Referring Provider: Griselda Hastings, DO Additional Clinicians involved in Shantel Melendez's care: Dr Kimberly Nichole ENT, Dr. Ibarra AL surgery [facility] CC: Head and neck cancer ASSESSMENT: 60 [...] 1.8 mm of invasive disease (Stage I, [id number], HPV+ oropharyngeal SCC).resected T1 N1 base of [...] neck dissection at [facility] HPI: Updated Visit, October 13, 2021: [...] 2020: Doing well, still smokes, works at [employer]. Reviewed scans and there is no evidence [...] adenopathy is identified. 4. 10/05/2021 MRI Brain [facility] Impression: 1. There is T2 and T2 [...] node had 4.5 cm of invasive disease. 12/23/18 Biopsy FNA R jugulodigastric node confirms [...] head and neck (HCC) Racquel Cole MD, [place], [place] CC: Griselda Hastings, DO [address] [phone] [address] NEWMAN ENT[address] Dr. Nichole ENT Dr. Ibarra AL surgery [facility]. documented in this encounterProvidence Hospital04-21-2022 Miscellaneous Notes* Telephone Encounter - Racquel [...] steps. Asya Kumar RN documented in this encounterProvidence Hospital04-21-2022 History of Present illness Narrative* Marilyn [...] 06, 2021 8:07 AM documented in this encounterProvidence Hospital04-04-2022 Evaluation note* Encounter Date Diagnosis Assessment [...] to continue with monitoring diet and exercise. [facility] Other 03-28-2022 Evaluation note* Encounter Date Diagnosis Assessment Notes Treatment Notes Treatment Clinical Notes Aug, Anxiety and depression (ICD-10 - F41.8) [facility] Other 01-13-2022 Evaluation note* Encounter Date Diagnosis Assessment Notes Treatment Notes Treatment Clinical Notes Jun, Sinusitis (ICD-10 - J32.9) I did prescribe the above medications and work note provided. [facility] Other 01-12-2022 Evaluation note* Encounter Date Diagnosis Assessment Notes Treatment Notes Treatment Clinical Notes Jun, Sinus pressure (ICD-10 - J34.89) Patient advised of negative results. Encouraged him to call if symtpoms persist or worsen, he verbalized understanding. [facility] Other 11-02-2021 Evaluation note* Encounter Date Diagnosis Assessment Notes Treatment Notes Treatment Clinical Notes Apr, Sinus congestion (ICD-10 - R09.81) [facility] Other 10-28-2021 Evaluation note* Encounter Date Diagnosis [...] Encouraged patient to continue with their efforts. [facility] Other 12-01-2016 History general Narrative - Reported* [...] surgery 02/04 19 Hospitalization History see above [facility] Other 12-01-2016 History general Narrative - Reported* [...] 02/04 19 Surgical History Spinal tap at [facility] 11/07/2021 Hospitalization History see above [facility] Other 12-01-2016 History general Narrative - Reported* [...] 02/04 19 Surgical History Spinal tap at [facility] 11/07/2021 Hospitalization History see above [facility] Other 12-01-2016 History general Narrative - Reported* [...] dissection 01/2019 Surgical History Spinal tap at [facility] 11/07/2021 Hospitalization History see above [facility] Other 12-01-2016 History general Narrative - Reported* [...] dissection 01/2019 Surgical History Spinal tap at [facility] 11/07/2021 Surgical History LP at [facility] 08/2022 Hospitalization History see above [facility] Other 12-01-2016 History general Narrative - Reported* [...] dissection 01/2019 Surgical History Spinal tap at [facility] 11/07/2021 Surgical History LP at [facility] 08/2022 Hospitalization History see above [facility] Other 12-01-2016 History general Narrative - Reported* [...] dissection 01/2019 Surgical History Spinal tap at [facility] 11/07/2021 Surgical History LP at [facility] 08/2022 Surgical History angioplasty right iliac artery 04/2023 Hospitalization History see above [facility] Other 05-19-2009 History of Present illness Narrative* [...] He saw Dr. Ba a neurologist in [facility]. * He describes his vision as seeing 1-2 . He describes this does not seem quite to but finding a time lab between moving his eyes and having the visual change. [facility] Work Phone: chitv complaint+Reason for visit Narrative* Chief Complaint 2 month 2 month f/u Reason for Visit Cervical spondylosis History of COVID-19 Nicotine dependence with current use SCC (squamous cell carcinoma) Nicotine dependence with current use Osteoarthritis cervical spine [facility] Work Phone: Clinical Notes [facility] [place] Plan note [facility] [place] noteNo Assessments Information Available [facility] Diagnosis Glioma of brain (HCC)- Primary Malignant neoplasm of brain, unspecified site Lung nodules Other nonspecific abnormal finding of lung field 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) Malignant neoplasm of head, face, and neck [facility] Diagnosis 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 Malignant neoplasm of head, face, and neck Lung nodules Other nonspecific abnormal finding of lung field Malignant neoplasm of head, face and neck (HCC) Malignant neoplasm of head, face, and neck [facility] [employer] Other Evaluation noteNo assessment information available [facility] Work Phone: Evaluation note* Diagnosis Onset Date Resolution Status Migraine acute [facility] Work Phone: Evaluation note* Diagnosis NPH (normal pressure hydrocephalus) (HCC)- Primary Idiopathic normal pressure hydrocephalus (INPH) [facility] Diagnosis 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HCC)- Primary NPH (normal pressure hydrocephalus) (HCC) Idiopathic normal pressure hydrocephalus (INPH) [facility] Diagnosis 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HCC) NPH (normal pressure hydrocephalus) (HCC) Idiopathic normal pressure hydrocephalus (INPH) [facility] Diagnosis Onset Date Resolution Status Anxiety and depression acute Essential hypertension acute Hyperlipidemia acute Osteoarthritis cervical spine acute PAD (peripheral artery disease) acute [facility] Work Phone: Evaluation note* Diagnosis 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 Griselda Hastings. 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) Malignant neoplasm of head, face, and neck [facility] Diagnosis Malignant neoplasm of head, face and neck (HCC) Malignant neoplasm of head, face, and neck Lung nodules Other nonspecific abnormal finding of lung field 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) Malignant neoplasm of head, face, and neck Localized swelling, mass or lump of neck Swelling, mass, or lump in head and neck [facility] Diagnosis Cervical radiculopathy- Primary Brachial neuritis or radiculitis nos Cervical radiculopathy Brachial neuritis or radiculitis nos Senile osteoporosis Senile osteoporosis documented in this encounter [facility] Work Phone: Evaluation note* Diagnosis Cervical radiculopathy- Primary Brachial neuritis or radiculitis nos Status post cervical spinal fusion Arthrodesis status Acute postoperative pain Other acute postoperative pain Muscle spasms of neck documented in this encounter [facility] Work Phone: Evaluation note* Diagnosis Other nerve root and plexus disorders- Primary Cervical paraspinal muscle spasm Spasm of muscle Cervical stenosis of spinal canal Spinal stenosis in cervical region [facility] Diagnosis Cervical radiculopathy- Primary Brachial neuritis or radiculitis nos Occipital neuralgia of left side Balance problem Abnormality of gait documented in this encounter [facility] Work Phone: [phone] note* 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 [facility] Work Phone: [phone] note* 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 [facility] Work Phone: [phone] note* Diagnosis Cervical radiculopathy- Primary Brachial neuritis or radiculitis nos Senile osteoporosis documented in this encounter [facility] Work Phone: [phone] note* Diagnosis Cervical radiculopathy Brachial neuritis or radiculitis nos Senile osteoporosis Cervical radiculopathy Brachial neuritis or radiculitis nos Senile osteoporosis Cervical radiculopathy Brachial neuritis or radiculitis nos Senile osteoporosis documented in this encounter [facility] Work Phone: [phone] note* Diagnosis Cervical radiculopathy Brachial neuritis or radiculitis nos Senile osteoporosis Cervical radiculopathy Brachial neuritis or radiculitis nos Cervical radiculopathy Brachial neuritis or radiculitis nos Senile osteoporosis documented in this encounter [facility] Work Phone: [phone] note* Diagnosis Cervical radiculopathy Brachial neuritis or radiculitis nos Senile osteoporosis Cervical radiculopathy Brachial neuritis or radiculitis nos Cervical radiculopathy Brachial neuritis or radiculitis nos Senile osteoporosis documented in this encounter [facility] Work Phone: [phone] note* Diagnosis Status post cervical spinal fusion- Primary Arthrodesis status documented in this encounter [facility] Work Phone: [phone] note* Diagnosis Nerve root and plexus disorder, unspecified- Primary [facility] Diagnosis Nerve root and plexus disorder, unspecified- Primary [facility]* Diagnosis Nerve root and plexus disorder, unspecified- Primary documented in this encounter [facility] HealthcareEvaluation [facility]* Diagnosis Status post cervical spinal fusion- Primary Arthrodesis status documented in this encounter [facility] Work Phone: Evaluation note* Diagnosis 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 Malignant neoplasm of head, face, and neck [facility] Diagnosis 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) Malignant neoplasm of head, face, and neck [facility]* Diagnosis Nerve root and plexus disorder, unspecified- Primary Acute pain of left shoulder documented in this encounter [facility] HealthcareEvaluation note* Diagnosis Melanocytic nevus of trunk- Primary Benign neoplasm of skin of trunk, except scrotum Seborrheic keratosis Inflamed seborrheic keratosis Actinic keratosis Capillary angioma Nevus, non-neoplastic History of SCC (squamous cell carcinoma) of skin Personal history of other malignant neoplasm of skin documented in this encounter [facility] HealthcareEvaluation note* Diagnosis Nerve root and plexus disorder, unspecified- Primary Acute pain of left shoulder documented in this encounter [facility] HealthcareEvaluation note* Diagnosis Acute pain of right shoulder- Primary Nerve root and plexus disorder, unspecified Acute pain of left shoulder documented in this encounter [facility] HealthcareEvaluation note* Diagnosis Other nerve root and plexus disorders- Primary Acute pain of left shoulder Acute pain of right shoulder documented in this encounter [facility] HealthcareHospital Discharge instructions Additional Instructions Obtain Elsy pot and perform nasal irrigations [facility] a [facility] Work Phone: Hospital Discharge instructions Additional Instructions Please return to emergency department for any new or worrisome symptoms including any chest pain, shortness of breath, vomiting, fever. Take all antibiotics even if you start feeling better.[facility] Work Phone: Hospital Discharge instructions Additional Instructions Push fluids Zofran for nausea vomiting Follow-up with the GI specialist as discussed for possible colonoscopy Return here if any problems persist or worsen If you are able to collect a urine specimen take it to the lab.[facility] Work Phone: Reason for referral [...] OF CHEST CONTRAST Racquel Cole MD [address] [place] [address] [place] [address] [place] [address] Referral ID Status Reason Start Date Expiration Date V isits Requested Visits Authorized [id number] Closed Auto-Generate d Referral 09/23/2021 11/22/2021 1 [...] OF NECK TISSUE Racquel Cole MD [address] [place] [address] [place] [address] [place] [address] Referral ID Status Reason Start Date Expiration Date V isits Requested Visits Authorized [id number] Closed Auto-Generate d Referral 09/23/2021 11/22/2021 1 1 [facility]No reason for referral [facility] Work Phone: Reason for visit Narrative* Auth/Cert Specialty Diagnoses / Procedures Referred By Roverto t Referred To Contact Diagnoses Cervical radiculopathy Senile osteoporosis Cervical radiculopathy [M54.12] Senile osteoporosis [M81.0] Procedures CT ARTHRD ANT INTERBODY DECOMPRESS CERVICAL BELW C2 CT ARTHRD ANT INTERBODY DECOMPRESS CERVICAL BELW C2 CT ARTHRD ANT INTERDY CERVCL BELW C2 EA ADDL NTRSPC CT ALLOGRAFT FOR SPINE SURGERY ONLY STRUCTURAL CT MICROSURG TQS REQ USE OPERATING MICROSCOPE Fusion Spine Anterior Cervical and Discectomy C5-6, C6-7 Doretha Harris MD [address] [facility], [address] [place] [address] Phone: tel: fax: [facility] Faiza MCCLELLAND [address] [place] [address] fax: Referral ID Status Reason Start Date Expiration Date Visits Re quested Visits Authorized [id number] 1 1 [facility] Work Phone: Reason for visit Narrative* Injection (Routine) - Closed Specialty Diagnoses / Procedures Referred By Contac t Referred To Contact Neurology Diagnoses Acute pain of left shoulder Procedures CT OFFICE/OUTPATIENT [facility] 60 MINUTES Oziel Cadena MD [address] 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 Living Will 10/05/2023 9:39 AM [...] (peripheral artery disease) Septembe r 2024 10:28am Screening for prostate cancer February 19, 2025 10:28am Chief Complaint Admit Date follow up Dyspepsia/GERD January 12, 2025 3:14pm medicare wellness February 19, 2025 10:28am I73.9 February 26, 2025 1:18pm Reason for Visit Admit Date Colon polyps January 12, 2025 3:14 pm Dyspepsia January 12, 2025 3:14 pm GERD (gastroesophageal reflux disease) [facility] 2024 3:14pm Anxiety and depression February 19 10:28am Burning sensation February 19, 2025 10:28am Colon polyps February 19, 2025 10:28am Hyperlipidemia February 19, 2025 10:28am Medicare annual wellness visit, initial February 19, 2025 10:28am Nicotine dependence with current use Sep [facility]2024 10:28am [facility] S/P cervical discectomy February [...] 3:14 pm GERD (gastroesophageal reflux disease) J [facility] 2024 3:14pm Anxiety and depression February 19 10:28am Burning sensation February 19, 2025 10:28am Colon polyps February 19, 2025 10:28am Hyperlipidemia February 19, 2025 10:28am Medicare annual wellness visit, initial February 19, 2025 10:28am Nicotine dependence with current use [facility]2024 10:28am PAD (peripheral artery disease) Septembe r 2024 10:28am S/P cervical discectomy February 19, 2 025 10:28am Screening for prostate cancer February 19, 2025 10:28am Burning sensation April 01, 2025 1 :42pm Hypertension April 01, 2025 1 :42pm Assessments No Assessments Information Available Reason for Referral Specialty Diagnoses / Procedures Referred By Contac t Referred To Contact Neurosurgery Diagnoses Glioma of brain (HCC) Procedures CONSULT TO NEUROSURGERY OFFICE/OUTPATIENT NEW HIGH MDM 60-74 MINUTES Racquel Cole MD [address] [place] [address] [place] [address] Referral ID Status Reason Start Date Expiration Date Visits Requested Visits Authorized [id number] Authorized PCP Requested Referral 10/13/2021 10/13/2022 1 1 Specialty Diagnoses / Procedures Referred By Contac t Referred To Contact CT IMAGING Diagnoses Lung nodules Procedures CT CHEST W IVCON DIAGNOSTIC COMPUTED TOMOGRAPHY THORAX W/CONTRAST Racquel Cole MD [address] [place] [address] Ct Imaging Referral ID Status Reason Start Date Expiration Date Visits Requested Visits Authorized [id number] Pending Review Auto-Generat ed Referral 10/30/2022 11/29/2022 1 1 Specialty Diagnoses / Procedures Referred By Contac t Referred To Contact CT IMAGING Diagnoses Malignant neoplasm of head, face and neck (HCC) Procedures CT NECK SOFT TISSUE W IVCON CT SOFT TISSUE NECK W/CONTRAST MATERIAL Racquel Cole MD [address] [place] [address] Ct Imaging Referral ID Status Reason Start Date Expiration Date Visits Requested Visits Authorized [id number] Pending Review Auto-Generat ed Referral 10/30/2022 11/29/2022 1 1 Reason *FU 10/31 Evaluate and Treat Brainstem Lesion 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) Referral Organization [facility] urosurgery Referring Provider First Name Sheng Referring Provider Last Name Wyatt Referring Provider Specialty Neurosurger y Referred Organization [facility] Referred Provider Jonny Vigil Referred Address [address] [place] [address] [place], [place] Referred Provider Specialty Neurological Surgery Referral Priority Routine General Notes Fore, Linnea M 022 02:09:54 PM >Received and fax referral today Reason consult and treat (p t is willing to see him in [place], if not then will see at [facility]) 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) Diagnosis 2 Cervical pain (neck) (M54.2) Diagnosis 3 Pressure in head (R5 1.9) Referral Organization [facility] [place] Referring Provider First Name Griselda Referring Provider Last Name Darling Referring Provider Specialty Family Prac henny Referred Organization [facility] Referred Provider Oziel Cadena Referred Address [address] [facility],[place], [place],[address] Referral Priority Routine Specialty Diagnoses / Procedures Referred By Roverto moraes Referred To Contact MR IMAGING Diagnoses 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HCC) Procedures MRI BRAIN WO/W IVCON MRI BRAIN BRAIN STEM W/O W/CONTRAST MATERIAL Kelly Perez, BILL[address] [place] [address] Mr Imaging Referral ID Status Reason Start Date Expiration Date Visits Requested Visits Authorized [id number] Authorized Auto-Generat ed Referral 09/20/2022 10/20/2023 1 1 Referral ID Status Reason Start Date Expiration Date V isits Requested Visits Authorized [id number] Closed Auto-Generate d Referral 09/20/2022 10/20/2023 1 1 Reason pt requesting n ot Dr. Verma, but can see other providers from that group evaluate and treat tinnitus and balance issues Diagnosis 1 Tinnitus of both ear s (H93.13) Diagnosis 2 Balance disorder (R2 6.89) Referral Organization [facility] Cardiology Referring Provider First Name Lilliam Referring Provider Last Name Kamla Referring Provider Specialty Cardiovascu lar Disease Referred Organization [facility] Referred Provider Manuela Ballesteros Referred Address ,[place], [place],[address] Referred Provider Specialty Ear, Nose an d Throat Referral Priority Routine General Notes GabbyMiguel hurleyya 12:40:36 PM >received today, pt has medicaid insurance, will send to Dr. Ballesteros, attachments made, waiting for notes to be locked Reason consult and treat Diagnosis 1 PAD (peripheral arnie ry disease) (I73.9) Referral Organization [facility] [place] Referring Provider First Name Griselda Referring Provider Last Name Darling Referring Provider Specialty [facility] Prac henny Referred Organization [facility] Vascular Surge ry Referred Provider Filipe Hess Referred Address [address] [facility] [address],[place], [place],[address] Referred Provider Specialty Vascular Abdirahman yvon Referral Priority Routine General Notes Fore, Linnea M 023 11:58:24 AM >Received today and sent P2P Specialty Diagnoses / Procedures Referred By Contac t Referred To Contact CT IMAGING Diagnoses 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) Procedures CT CHEST W IVCON DIAGNOSTIC COMPUTED TOMOGRAPHY THORAX W/CONTRAST Racquel Cole MD [address] [place] [address] [place] [address] [place] [address] Referral ID Status Reason Start Date Expiration Date Visits Requested Visits Authorized [id number] Authorized Auto-Generat ed Referral 11/01/2024 12/01/2024 1 1 Specialty Diagnoses / Procedures Referred By Contac t Referred To Contact CT IMAGING Diagnoses 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) Procedures CT NECK SOFT TISSUE W IVCON CT SOFT TISSUE NECK W/CONTRAST MATERIAL Racquel Cole MD [address] [place] [address] [place] [address] [place] [address] Referral ID Status Reason Start Date Expiration Date Visits Requested Visits Authorized [id number] Authorized Auto-Generat ed Referral 11/01/2024 12/01/2024 1 1 Referral ID Status Reason Start Date Expiration Date V isits Requested Visits Authorized [id number] Closed Auto-Generate d Referral 10/26/2023 06/17/2024 1 1 Referral ID Status Reason Start Date Expiration Date V isits Requested Visits Authorized [id number] Closed Auto-Generate d Referral 10/26/2023 06/17/2024 1 1 Specialty Diagnoses / Procedures Referred By Contac t Referred To Contact CT IMAGING Diagnoses Lung nodules Procedures CT CHEST W IVCON DIAGNOSTIC COMPUTED TOMOGRAPHY THORAX W/CONTRAST Racquel Cole MD [address] [place] [address] [place] [address] [place] [address] Referral ID Status Reason Start Date Expiration Date V isits Requested Visits Authorized [id number] Closed Auto-Generate d Referral 10/30/2022 11/29/2022 1 1 Specialty Diagnoses / Procedures Referred By Contac t Referred To Contact CT IMAGING Diagnoses Malignant neoplasm of head, face and neck (HCC) Procedures CT NECK SOFT TISSUE W IVCON CT SOFT TISSUE NECK W/CONTRAST MATERIAL Racquel Cole MD [address] [place] [address] [place] [address] [address] [facility] [place] [address] Referral ID Status Reason Start Date Expiration Date V isits Requested Visits Authorized [id number] Closed Auto-Generate d Referral 10/30/2022 11/29/2022 1 1 Specialty Diagnoses / Procedures Referred By Contac t Referred To Contact Radiology 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 [place] [address] [place] [id number] Referral ID Status Reason Start Date Expiration Date Visits Requested Visits Authorized [id number] Pending Review Perform Procedure 12/13/2023 12/12/2024 1 1 Specialty Diagnoses / Procedures Referred By Contac t Referred To Contact Radiology 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 tumor perfusion protocol w and wo IV contrast Shimon Heaton PA-C [address] [place] [id number] Referral ID Status Reason Start Date Expiration Date Visits Requested Visits Authorized [id number] Authorized Perform Procedure 10/24/2023 10/23/2024 1 1 Specialty Diagnoses / Procedures Referred By Contac t Referred To Contact Radiology Diagnoses Cervical radiculopathy Procedures XR cervical spine complete 6+ views Doretha Harris MD [address] [facility], [address] [address] Referral ID Status Reason Start Date Expiration Date Visits Requested Visits Authorized [id number] Authorized Perform Procedure 01/03/2024 01/02/2025 1 1 Specialty Diagnoses / Procedures Referred By Contac t Referred To Contact Radiology Diagnoses Senile osteoporosis Procedures XR DEXA bone density axial skeleton w VFA Doretha Harris MD [address] [facility], [address] [address] Referral ID Status Reason Start Date Expiration Date Visits Requested Visits Authorized [id number] Pending Review Perform Procedure 01/03/2024 01/02/2025 1 1 Specialty Diagnoses / Procedures Referred By Contac t Referred To Contact Diagnoses Cervical radiculopathy Senile osteoporosis Procedures ECG 12 lead Doretha Harris MD [address] [facility], [address] [place] [address] Referral ID Status Reason Start Date Expiration Date V isits Requested Visits Authorized [id number] Authorized 01/09/2024 01/08/2025 1 1 Specialty Diagnoses / Procedures Referred By Contac t Referred To Contact Radiology Diagnoses Cervical radiculopathy Procedures XR DEXA bone density Doretha Harris MD [address] [facility], [address] [place] [address] Referral ID Status Reason Start Date Expiration Date Visits Requested Visits Authorized [id number] Authorized Perform Procedure 01/08/2024 01/07/2025 1 1 [...] section and content) DATE CREATED AUTHOR 08/01/2019 [facility] DATE CREATED AUTHOR AUTHOR'S ORGANIZ ATION 11/05/2021 [employer] DATE CREATED AUTHOR AUTHOR'S ORGANIZ ATION 01/19/2022 [facility] dical Specialist DATE CREATED AUTHOR AUTHOR'S ORGANIZ ATION 10/02/2022 [facility] DATE CREATED AUTHOR AUTHOR'S ORGANIZ ATION 12/25/2022 [facility] DATE CREATED AUTHOR AUTHOR'S ORGANIZ ATION 08/03/2023 [facility] DATE CREATED AUTHOR AUTHOR'S ORGANIZ ATION 02/13/2024 [facility] DATE CREATED AUTHOR AUTHOR'S ORGANIZ ATION 10/27/2024 [facility] DATE CREATED AUTHOR AUTHOR'S ORGANIZ ATION 11/13/2024 [facility] DATE CREATED AUTHOR AUTHOR'S ORGANIZ ATION 01/01/2025 [facility] DATE CREATED AUTHOR AUTHOR'S ORGANIZ ATION 01/03/2025 [facility] DATE CREATED AUTHOR AUTHOR'S ORGANIZ ATION 02/14/2025 [facility] DATE CREATED AUTHOR AUTHOR'S ORGANIZ ATION 03/21/2025 [facility] DATE CREATED AUTHOR AUTHOR'S ORGANIZ ATION 03/23/2025 [facility] dical Specialists [facility] DATE CREATED AUTHOR AUTHOR'S ORGANIZ ATION 03/26/2025 [facility] Source Comments (unrecognize d section and content) In the event this informatio n is protected by the Federal Confidentiality of Alcohol and Drug Abuse Patient Records regulations: The Federal rules restrict any use of the information to criminally investigate or prosecute any alcohol or drug abuse patient.[facility] Hospital[facility] the event this information is protected by the Federal Confidentiality of Alcohol and Drug Abuse Patient Records regulations: The Federal rules restrict any use of the information to criminally investigate or prosecute any alcohol or drug abuse patient.[facility] HospitalIn the event this information is protected by the Federal Confidentiality of Alcohol and Drug Abuse Patient Records regulations: The Federal rules restrict any use of the information to criminally investigate or prosecute any alcohol or drug abuse patient.[facility] HospitalIn the event this information is protected by the Federal Confidentiality of Alcohol and Drug Abuse Patient Records regulations: The Federal rules restrict any use of the information to criminally investigate or prosecute any alcohol or drug abuse patient.[facility] HospitalIn the event this information is protected by the Federal Confidentiality of Alcohol and Drug Abuse Patient Records regulations: The Federal rules restrict any use of the information to criminally investigate or prosecute any alcohol or drug abuse patient.[facility] HospitalIn the event this information is protected by the Federal Confidentiality of Alcohol and Drug Abuse Patient Records regulations: The Federal rules restrict any use of the information to criminally investigate or prosecute any alcohol or drug abuse patient.[facility] HospitalIn the event this information is protected by the Federal Confidentiality of Alcohol and Drug Abuse Patient Records regulations: The Federal rules restrict any use of the information to criminally investigate or prosecute any alcohol or drug abuse patient.[facility] HospitalIn the event this information is protected by the Federal Confidentiality of Alcohol and Drug Abuse Patient Records regulations: The Federal rules restrict any use of the information to criminally investigate or prosecute any alcohol or drug abuse patient.[facility] HospitalIn the event this information is protected by the Federal Confidentiality of Alcohol and Drug Abuse Patient Records regulations: The Federal rules restrict any use of the information to criminally investigate or prosecute any alcohol or drug abuse patient.[facility] HospitalIn the event this information is protected by the Federal Confidentiality of Alcohol and Drug Abuse Patient Records regulations: The Federal rules restrict any use of the information to criminally investigate or prosecute any alcohol or drug abuse patient.[facility] HospitalIn the event this information is protected by the Federal Confidentiality of Alcohol and Drug Abuse Patient Records regulations: The Federal rules restrict any use of the information to criminally investigate or prosecute any alcohol or drug abuse patient.[facility] HospitalIn the event this information is protected by the Federal Confidentiality of Alcohol and Drug Abuse Patient Records regulations: The Federal rules restrict any use of the information to criminally investigate or prosecute any alcohol or drug abuse patient.[facility] HospitalIn the event this information is protected by the Federal Confidentiality of Alcohol and Drug Abuse Patient Records regulations: The Federal rules restrict any use of the information to criminally investigate or prosecute any alcohol or drug abuse patient.[facility] HospitalIn the event this information is protected by the Federal Confidentiality of Alcohol and Drug Abuse Patient Records regulations: The Federal rules restrict any use of the information to criminally investigate or prosecute any alcohol or drug abuse patient.[facility] HospitalIn the event this information is protected by the Federal Confidentiality of Alcohol and Drug Abuse Patient Records regulations: The Federal rules restrict any use of the information to criminally investigate or prosecute any alcohol or drug abuse patient.[facility] Reason for Visit (unrecogniz ed section and content) Reason Comments Results Reason Comments Head and Neck Cancer Specialty Diagnoses / Procedures Referred By Contac t Referred To Contact Hematology/Oncology / HEMATOLOGY/ONCOLOGY Diagnoses Follow-up examination 1 year follow up LABS WITH CT Procedures EST PATIENT Racquel Cole MD [address] [place] [address] Racquel Cole MD [address] [place] [address] [place] [address] Referral ID Status Reason Start Date Expiration Date Visits Re quested Visits Authorized [id number] Closed 10/13/2021 06/17/2022 1 1 Reason Comments Referral Information Neurosurgery Reason Comments Established Patient Specialty Diagnoses / Procedures Referred By Contac t Referred To Contact Hematology/Oncology / HEMATOLOGY/ONCOLOGY Diagnoses 2 week phone follow up [phone] Procedures PHYS/QHP TELEPHONE EVALUATION 5-10 MIN PROVIDER SPECIALTY PHONE CALL Racquel Cole MD [address] [place] [address] [place] [address] Racquel Cole MD [address] [place] [address] [place] [address] Referral ID Status Reason Start Date Expiration Date Visits Re quested Visits Authorized [id number] Closed 10/27/2021 06/17/2022 1 1 Reason Comments Triage Internal Referral--o ld Reason Comments Appointment Reason Comments New Patient Specialty Diagnoses / Procedures Referred By Contac t Referred To Contact Neurology / BRAIN TUMOR Diagnoses Hydrocephalus (HCC) Hydrocephalus Procedures OFFICE/OUTPATIENT NEW MODERATE MDM 45-59 MINUTES NEW SURGICAL Oziel Cadena MD [address] [address] Kelly Perez PA-C [address] [place] [address] Referral ID Status Reason Start Date Expiration Date Visits Re quested Visits Authorized [id number] Closed 09/13/2022 06/17/2023 1 1 Reason Comments Patient Question Reason Comments Radiology MRI Specialty Diagnoses / Procedures Referred By Contac t Referred To Contact MR IMAGING Diagnoses 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HCC) Procedures MRI BRAIN WO/W IVCON MRI BRAIN BRAIN STEM W/O W/CONTRAST MATERIAL Kelly Perez PA-C [address] [facility] [place] [address] Mr Imaging Referral ID Status Reason Start Date Expiration Date V isits Requested Visits Authorized [id number] Closed Auto-Generate d Referral 09/20/2022 10/20/2023 1 [...] NECK W/CONTRAST MATERIAL Racquel Cole MD [address] [place] [address] [place] [address] [place] [id number] Referral ID Status Reason Start Date Expiration Date V isits Requested Visits Authorized [id number] Closed Auto-Generate d Referral 10/26/2023 06/17/2024 1 1 Specialty Diagnoses / Procedures Referred By Contac t Referred To Contact CT IMAGING Diagnoses Lung nodules Procedures CT CHEST W IVCON DIAGNOSTIC COMPUTED TOMOGRAPHY THORAX W/CONTRAST Racquel Cole MD [address] [place] [address] [place] [id number] Referral ID Status Reason Start Date Expiration Date V isits Requested Visits Authorized [id number] Closed Auto-Generate d Referral 10/30/2022 11/29/2022 1 [...] OF NECK TISSUE Racquel Cole MD [address] [place] [address] [place] [address] [place] [id number] Referral ID Status Reason Start Date Expiration Date V isits Requested Visits Authorized [id number] Closed Auto-Generate d Referral 09/23/2021 11/22/2021 1 1 Reason Comments Neck Pain Tingling Numbness Specialty Diagnoses / Procedures Referred By Contac t Referred To Contact Radiology 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 tumor perfusion protocol w and wo IV contrast Shimon Heaton, [place] [address] [place] [address] Referral ID Status Reason Start Date Expiration Date Visits Requested Visits Authorized [id number] Authorized Perform Procedure 10/24/2023 10/23/2024 1 1 Reason Comments Neck Pain Specialty Diagnoses / Procedures Referred By Contac t Referred To Contact Diagnoses Cervical radiculopathy Senile osteoporosis Procedures ECG 12 lead Doretha Harris MD [address] [facility], [address] [address] Referral ID Status Reason Start Date Expiration Date V isits Requested Visits Authorized [id number] Authorized 01/09/2024 01/08/2025 1 1 Specialty Diagnoses / Procedures Referred By Contac t Referred To Contact Radiology Diagnoses Cervical radiculopathy Procedures XR cervical spine complete 6+ views Doretha Harris MD [address] [facility], [address] [address] Referral ID Status Reason Start Date Expiration Date Visits Requested Visits Authorized [id number] Authorized Perform Procedure 01/03/2024 01/02/2025 1 1 Specialty Diagnoses / Procedures Referred By Contac t Referred To Contact Radiology Diagnoses Cervical radiculopathy Procedures XR DEXA bone density Doretha Harris MD [address] [facility], [address] [facility] [place] [address] Referral ID Status Reason Start Date Expiration Date Visits Requested Visits Authorized [id number] Authorized Perform Procedure 01/08/2024 01/07/2025 1 1 Reason Comments Post-op Spine Surgery Pain in left shoul skye. Reason Comments Post-op Spine Surgery 3 month FU, should er pain. 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) Procedures CT CHEST W IVCON DIAGNOSTIC COMPUTED TOMOGRAPHY THORAX W/CONTRAST Racquel Cole MD [address] [place] [address] [place] [address] Phone: tel: fax: [place] [id number] Referral ID Status Reason Start Date Expiration Date V isits Requested Visits Authorized [id number] Closed Auto-Generate d Referral 11/01/2024 12/01/2024 1 1 Reason Comments Skin Check Care Teams (unrecognized sec tion and content) Road Hogger Operator Relationship Specialty Start Date End Date Griselda Hastings [address] [place], [place] [phone] PCP - General Family Practice 11/20/18 Griselda Hastings [address] [place] [phone] Referring Family Practice 11/20/18 Road Hogger Operator Relationship Specialty Start Date End Date Griselda Hastings [address] [place] [phone] PCP - General Family Practice 11/20/18 Griselda Hastings [address] [place] [phone] Referring Family Practice 11/20/18 Road Hogger Operator Relationship Specialty Start Date End Date Griselda Hastings [address] [place], [place] [phone] PCP - General Family Practice 11/20/18 Griselda Hastings [address] [place] [address], [place] [address] Referring Family Practice 11/20/18 Road Hogger Operator Relationship Specialty Start Date End Date Griselda Hastings [address] [place] [address], [place] [address] PCP - General Family Practice 11/20/18 Griselda Hastings [address] [place] [address], [place] [address] Referring Family Practice 11/20/18 Road Hogger Operator Relationship Specialty Start Date End Date Griselda Hastings [address] [place] [address], [facility] PCP - General Family Medicine 11/20/18 Griselda Hastings [address] [place] [address], [place] [address] Referring Family Medicine 11/20/18 Road Hogger Operator Relationship Specialty Start Date End Date Griselda Hastings [address] [place] [address], [place] [address] PCP - General Family Medicine 11/20/18 Griselda Hastings [address] [place] [address], [place] [address] Referring Family Medicine 11/20/18 Team Status: Inactive [...] Status: Active Member Role Status Dates Griselda Darling , Primary Care Provider Active Nikole Mota APRN CISTERN ROOM OPERATOR-C Attending Provider A ctive Team Status: Inactive Member Role Status Dates Griselda Hastings , Primary Care Provider Active Oziel Cadena MD Attending Provider Active Team Status: Inactive Member Role Status Dates Griselda Hastings , Primary Care Provider Active Nikole Mota APRN CISTERN ROOM OPERATOR-C Attending Provider A ctive Road Hogger Operator Relationship Specialty Start Date End Date Griselda Hastings [address] [place] [address], [place] [address] PCP - General Family Medicine 11/20/[address] [place] [address] Referring Family Medicine 11/20/18 Oziel Cadena MD [address] ROTHMAN [address] [place] [address] Referring Neurology 08/18/22 Road Hogger Operator Relationship Specialty Start Date End Date Griselda Hastings [address] [place] [address], [place] [address] PCP - General Family Medicine 11/20/18 Griselda Hastings [address] [place] [address], [place] [address] Referring Family Medicine 11/20/18 Oziel Cadena MD [address] [place] [address] Referring Neurology 08/18/22 Road Hogger Operator Relationship Specialty Start Date End Date Griselda Hastings [address] [place] [address], [place] [address] PCP - General Family Medicine 11/20/18 Griselda Hastings [address] [place] [address] Referring Family Medicine 11/20/18 Oziel Cadena MD [address] [facility] [address] [address] Referring Neurology 08/18/22 Team Status: Inactive Member Role Status Dates Griselda Hastings DO Primary Care Provider, Attending Provi skye Active Team Status: Inactive Member Role Status Dates Griselda Hastings DO Primary Care Provider Active Lima Joseph MD Attending Provider Active Team Status: Inactive Member Role Status Dates Griselda Hastings DO Primary Care Provider Active Rohit Agrawal DO Emergency Provider Active Team Status: Inactive Member Role Status Dates Griselda Hastings DO Primary Care Provider Active Lilliam Cason MD Attending Provider Active Team Status: Inactive Member Role Status Dates Griselda Hastings DO Primary Care Provider Active Ruddy Harvey MD Attending Provider Active Road Hogger Operator Relationship Specialty Start Date End Date Griselda Hastings DO [address] [place] [address] PCP - General Family Medicine 02/13/23 Road Hogger Operator Relationship Specialty Start Date End Date Griselda Hastings DO [address] [place] [address] PCP - General Family Medicine 02/13/23 Team Status: Inactive Member Role Status Dates Griselda Hastings DO Primary Care Provider Active Sta rt: May 04, 2023 End: May 04, 2023 Nikole Mota APRN CISTERN ROOM OPERATOR-C Attending Provider Active Start: April End: [...] September 05, 2023 End: September 05, 2023 Road Hogger Operator Relationship Specialty Start Date End Date Griselda Hastings DO PCP - General 01/03/19 Road Hogger Operator Relationship Specialty Start Date End Date Griselda Hastings DO [facility] [address] [place] [address] PCP - General 01/03/19 [place] [address] [place] [address] Consulting Physician Hematology and Oncology 10/05/23 Team [...] October 29, 2023 End: October 29, 2023 Road Hogger Operator Relationship Specialty Start Date End Date Griselda Hastings [address] [place] [address] PCP - General Family Medicine 11/20/18 Griselda Hastings [address] [place] [phone] Referring Family Medicine 11/20/18 Oziel Cadena MD [address] [facility] [address] [address] Referring Neurology 08/18/22 Team Status: Active Member Role Status Dates Lilliam Cason MD Fire Sprinkler Installer Active Griselda Hastings DO Primary Care Provider Active Team Status: Inactive Member Role Status Dates Griselda Kuns , DO Primary Care Provide r, Attending Provider Active Start: December 03, 2023 End: December 03, 2023 Team Status: Inactive Member Role Status Dates Griselda Hastings DO Primary Care Provide r, Attending Provider Active Start: January 31, 2024 End: January 31, 2024 Road Hogger Operator Relationship Specialty Start Date End Date Griselda Hastings [address] [place] [phone] PCP - General Family Medicine 11/20/18 Griselda Hastings [address] [place] [phone] Referring Family Medicine 11/20/18 Oziel Cadena MD [address] [place] [phone] Referring Neurology 08/18/22 Road Hogger Operator Relationship Specialty Start Date End Date Griselda Hastings [address] [place] [phone] PCP - General Family Medicine 11/20/18 Griselda Hastings [address] [place] [phone] Referring Family Medicine 11/20/18 Oziel Cadena MD [address] [place] [address] Referring Neurology 08/18/22 Road Hogger Operator Relationship Specialty Start Date End Date Griselda Hastings [address] [place] [phone] PCP - General Family Medicine 11/20/18 Griselda Hastings [address] [place] [address] Referring Family Medicine 11/20/18 Road Hogger Operator Relationship Specialty Start Date End Date Griselda Hastings DO [address] [place] [address] PCP - General 01/03/19 [place] [address] [place] [address] Consulting Physician Hematology and Oncology 10/05/23 Solomon Narayanan PA-C [address] [facility], [address] [address] Physician Flexible Nanny Neurosurgery 12/12/23 Team Status: Inactive Member Role Status Dates Griselda Hastings DO Primary Care Provide r, Attending Provider Active Start: April 01, 2024 End: April 01, 2024 Road Hogger Operator Relationship Specialty Start Date End Date Griselda Hastings DO [address] [place] [address] PCP - General 01/03/19 [place] [address] [place] [address] Consulting Physician Hematology and Oncology 10/05/23 Solomon Narayanan PA-C [address] [facility], [address] [address] Physician Flexible Nanny Neurosurgery 12/12/23 Road Hogger Operator Relationship Specialty Start Date End Date Griselda Hastings DO [address] [place] [address] PCP - General 01/03/19 [place] [address] [place] [address] Consulting Physician Hematology and Oncology 10/05/23 Solomon Narayanan PA-C [address] [place] [address] Physician Flexible Nanny Neurosurgery 12/12/23 Team Status: Inactive Member Role Status Dates Griselda Hastings DO Primary Care Provider Active Sta rt: April 28, 2024 End: April 28, 2024 Lilliam Cason MD Attending Provider Active Sta rt: April 28, 2024 End: April 28, 2024 Road Hogger Operator Relationship Specialty Start Date End Date Griselda Hastings DO [address] [place] [phone] PCP - General Family Medicine 02/13/23 Road Hogger Operator Relationship Specialty Start Date End Date Griselda Hastings DO [address] [place] [address] PCP - General Family Medicine 02/13/23 Road Hogger Operator Relationship Specialty Start Date End Date Griselda Hastings DO [address] [place], [place] [phone] PCP - General 01/03/19 [place] [address] [place] [address] Consulting Physician Hematology and Oncology 10/05/23 Solomon Narayanan PA-C [address] [facility], [facility] [address] [place], [place] [phone] Physician Flexible Nanny Neurosurgery 12/12/23 Road Hogger Operator Relationship Specialty Start Date End Date Griselda Hastings DO [address] [place] [address] PCP - General 01/03/19 [place] [address] [place] [address] Consulting Physician Hematology and Oncology 10/05/23 Solomon Narayanan PA-C [address] [facility], [address] [address] Physician Flexible Nanny Neurosurgery 12/12/23 Road Hogger Operator Relationship Specialty Start Date End Date Griselda Hastings DO [address] [place] [address] PCP - General 01/03/19 [place] [address] [place] [address] Consulting Physician Hematology and Oncology 10/05/23 Solomon Narayanan PA-C [address] [facility], [address] [address] Physician Flexible Nanny Neurosurgery 12/12/23 Road Hogger Operator Relationship Specialty Start Date End Date Griselda Hastings DO [address] [place] [address] PCP - General 01/03/19 [place] [address] [place] [address] Consulting Physician Hematology and Oncology 10/05/23 Solomon Narayanan PA-C [address] [facility], [address] [address] Physician Flexible Nanny Neurosurgery 12/12/23 Road Hogger Operator Relationship Specialty Start Date End Date Griselda Hastings DO [address] [place] [address] PCP - General 01/03/19 [place] [address] [place] [address] Consulting Physician Hematology and Oncology 10/05/23 Solomon Narayanan PA-C [address] [facility], [address] [address] Physician Flexible Nanny Neurosurgery 12/12/23 Road Hogger Operator Relationship Specialty Start Date End Date Griselda Hastings DO [address] [place] [address] PCP - General 01/03/19 [place] [address] [place] [address] Consulting Physician Hematology and Oncology 10/05/23 Solomon Narayanan PA-C [address] [facility], [address] [address] Physician Flexible Nanny Neurosurgery 12/12/23 Team Status: Inactive Member Role Status Dates Griselda Hastings DO Primary Care Provider Active Sta rt: June 24, 2024 End: June 24, 2024 Solomon Narayanan PA-C Attending Provider Active St art: June 24, 2024 End: Rocío 7th, 2025 Road Hogger Operator Relationship Specialty Start Date End Date Griselda Hastings DO [address] [place] [address] PCP - General 01/03/19 [place] [address] [place] [address] Consulting Physician Hematology and Oncology 10/05/23 Solomon Narayanan, PA-C [address] [place] [address] Physician Flexible Nanny Neurosurgery 12/12/23 Road Hogger Operator Relationship Specialty Start Date End Date Griselda Hastings DO [address] [place] [facility] [place] [address] PCP - General Family Medicine 02/13/23 Team Status: Inactive Member Role Status Dates Griselda Hastings DO Primary Care Provide r, Attending Provider Active Start: July 03, 2024 End: July 03, 2024 Road Hogger Operator Relationship Specialty Start Date End Date Griselda Hastings DO [address] [place] [facility] [place] [address] PCP - General Family Medicine 02/13/23 Road Hogger Operator Relationship Specialty Start Date End Date Griselda Hastings DO [address] [place] [place] [phone] PCP - General Family Medicine 02/13/23 [...] September 11, 2024 End: September 11, 2024 Road Hogger Operator Relationship Specialty Start Date End Date Griselda Hastings DO [address] [place] [phone] PCP - General Family Medicine 02/13/23 Team [...] September 20, 2024 End: September 20, 2024 Road Hogger Operator Relationship Specialty Start Date End Date [...] October 10, 2024 End: October 10, 2024 Road Hogger Operator Relationship Specialty Start Date End Date Griselda Hastings DO [address] [place] [id number] PCP - General 01/03/19 [place] [address] [place] [address] Consulting Physician Hematology and Oncology 10/05/23 Solomon Narayanan PA-C [address] [place] [address] Physician [employer] Neurosurgery 12/12/23 Road Hogger Operator Relationship Specialty Start Date End Date Griselda Hastings DO [address] [place] [id number] PCP - General 01/03/19 [place] [address] [place] [address] Consulting Physician Hematology and Oncology 10/05/23 Solomon Narayanan PA-C [address] [place] [address] Physician [employer] [facility] Neurosurgery 12/12/23 Team Status: Inactive Member Role Status Dates Griselda Hastings DO Primary Care Provider Active Sta rt: October 27, 2024 End: October 27, 2024 Lilliam Cason MD Attending Provider Active Sta rt: October 27, 2024 End: October 27, 2024 Road Hogger Operator Relationship Specialty Start Date End Date Griselda Hastings [address] [place] [phone] PCP - General Family Medicine 11/20/18 Griselda Hastings [address] [place], [place] [phone] Referring Family Medicine 11/20/18 Oziel Cadena MD [address] [facility] [address]man [address] [place] [id number] Referring Neurology 08/18/22 Road Hogger Operator Relationship Specialty Start Date End Date Griselda Hastings [address] [place], [place] [phone] PCP - General Family Medicine 11/20/18 Griselda Hastings [address] [place], [place] [phone] Referring Family Medicine 11/20/18 Oziel Cadena MD [address] [facility] [address] oRthman [address] [place] [id number] Referring Neurology 08/18/22 Road Hogger Operator Relationship Specialty Start Date End Date [...] November 19, 2024 End: November 19, 2024 Road Hogger Operator Relationship Specialty Start Date End Date Griselda Hastings DO PCP - [facility] Medicine 02/13/23 Team Status: Inactive Member Role Status Dates Griselda Hastings DO Primary Care Provide r, Attending Provider Active Start: 2024 End: 2024 Road Hogger Operator Relationship Specialty Start Date End Date Griselda Hastings DO PCP - [facility] Medicine 02/13/23 Team Status: Active Member [...] January 12, 2025 End: January 12, 2025 Road Hogger Operator Relationship Specialty Start Date End Date Griselda Hastings DO PCP - [facility] 02/13/23 Road Hogger Operator Relationship Specialty Start Date End Date [...] February 19, 2025 End: February 19, 2025 Road Hogger Operator Relationship Specialty Start Date End Date Griselda Hastings DO PCP - [facility] 02/13/23 Team Status: Inactive Member Role Status Dates Griselda Hastings DO Primary Care Provider Active Sta rt: February 26, 2025 End: February 26, 2025 Griselda Hastings DO Attending Provider Active Start: February 26, 2025 End: February 26, 2025 Road Hogger Operator Relationship Specialty Start Date End Date Griselda Hastings DO PCP - [facility] 02/13/23 Team Status: Inactive Member Role Status Dates Griselda Hastings DO Primary Care Provider Active Sta rt: April 01, 2025 End: April 01, 2025 Griselda Hastings DO Attending Provider Active Start: April 01, 2025 End: April 01, 2025 Goals (unrecognized section and content) Goals [...] prevention 0007 (Given - Provid er: Elizabeth D Onwudinjo, RN) lisinopril tablet 10 mg 10 mg, oral, Daily, First dose on Sun04/09/24 at 1915, Phase II/On Unit, On hold since Sun04/09/2024 at 1857 until manually unheld 185 (Held by provider - Provider: Chicho Bryan MD - Reason: Post-procedure)1915 (Dose Auto Held) 0900 (Canceled Entry - Provider: Whitney Kaufman RN - Comment: held by provider) oxygen (O2) therapy (CANCELED) inhalation, Continuous - Inhalation, First dose on Sun04/09/24 at 1715, Recovery (only), Device: Nasal Cannula, Rate in liters per minute: Other, Custom Value: 1-6 LPM, Keep O2 Sat Above: 92% 163 ([employer] - Provider: Goyo [...] Elizabeth Esposito RN) 003 (Given - Provider: Elziabeth Esposito RN)0615 (Given - Provider: Elizabeth Esposito [...] BE BASED ON THE PRIMARY CLINICAL RECORDS. [facility]. provides no warranty or guarantee of the accuracy or completeness of information in this document.
[2025-04-03 14:19] LABS: Anion Gap 8.9; Blood Urea Nitrogen 14.0 mg/dL (7.0-18.0); Calcium 8.6 mg/dL (8.5-10.1); Carbon Dioxide 28.2 mmol/L (21.0-32.0); Chloride 107 mmol/L (98-107); Estimated GFR (African America >60 (>=60 mL/min/1.73m^2); Estimated GFR (Non-African Ame >60 (>=60 mL/min/1.73m^2); Glucose 83 mg/dL (74-106); Potassium 4.1 mmol/L (3.5-5.1); Sodium 140 mmol/L (136-145)
[2025-04-03 14:20] LABS: Alanine Aminotransferase 38 U/L (16-63); Albumin Globulin Ratio 1.2; Albumin Level 2.9 g/dL (3.4-5.0); Alkaline Phosphatase 70 U/L (46-116); Aspartate Amino Transferase 17 U/L (15-37); Globulin 2.4 g/dL; Total Protein 5.3 g/dL (6.4-8.2)
[2025-04-03 14:52] LABS: Hematocrit 41.7 % (42.0-54.0); Hemoglobin 14.1 g/dL (14.0-18.0); Immature Granulocytes Abs Auto 0.01 10^3/uL (0.00-0.03); Immature Granulocytes Pct Auto 0.1 % (0.0-0.5); Lymphocytes Absolute Auto 2.5 10^3/uL (1.2-3.8); Mean Corpuscular HGB Conc 33.8 g/dL (29.9-35.2); Mean Corpuscular Hemoglobin 31.8 pg (25.9-34.0); Mean Corpuscular Volume 94.1 fL (80.0-94.0); Platelet Count 285 10^3/uL (150-450); Red Blood Count 4.43 10^6/uL (4.70-6.10); White Blood Count 6.7 10^3/uL (4.0-11.0)
[2025-04-03 14:59] LABS: Cholesterol 96 mg/dL (<=200); HDL Cholesterol 54 mg/dL (40-60); Thyroid Stimulating Hormone 1.929 uIU/mL (0.358-3.740); Triglycerides 78 mg/dL (<=150); VLDL CHOLESTEROL 15.6 mg/dL
== END 2025-04-03 13:18 | disposition home or self-care (01) ==
LOC: LAB 13:19
PROVIDERS: PCP Family Medicine; Visit Provider Family Medicine
DX: E78.5 Hyperlipidemia, unspecified (principal); I10 Essential (primary) hypertension; F32.A Depression, unspecified; F41.9 Anxiety disorder, unspecified; I44.0 Atrioventricular block, first degree
CPT/HCPCS: 36415; 80053; 80061; 84443; 85025

== ENCOUNTER 2025-04-03 13:34 | Outpatient (OUT) | payer MEDICARE, OTHER, SELFPAY ==
--- NOTE | 2025-04-03 13:35 | MR_ITS ---
The [address] [address] Patient Name: SHANTEL MELENDEZ MRN: [id number] date: 1960 Sex: M Assigned Patient Location: LAB Current Patient Location: Accession/Order Number: [id number] Exam Date: 04/03/2025 13:45 Report Date: 04/07/2025 15:50 At the request of: ELVI TRAORE Procedure: MR head/brain wo/w con MRI BRAIN WITHOUT AND WITH INTRAVENOUS CONTRAST CLINICAL DATA: Neoplasm of brain COMPARISON: MRI brain 10/05/2021, CT head 07/14/2022 FINDINGS: No restricted diffusion. Mild central involutional changes. Mild periventricular subcortical T2 prolongation identified just of chronic small vessel ischemic disease. No shift midline structure basal cisterns are patent. Redemonstration of moderate relatively confluent T2 signal involving the right VANESSA naldo crossing the midline into the left naldo and into the facial colliculus. Relative sparing of cortical spinal tracts noted. No masslike enlargement of the naldo noted. Similar appearance of the of T2 signal noted. No pathologic enhancement identified. No additional focus of abnormal enhancement identified elsewhere. MR/MR head/brain wo/w con IMPRESSION: Stable confluent T2 signal involving the naldo predominantly right-sided. It is conceivable these T2 signal changes may represent the sequelae of prior radiation therapy, correlate with prior head and neck radiation treatment planning.. Sequela of demyelination or possible low-grade glial tumor may be considered although thought less likely given the overall stability and nonmasslike appearance. Otherwise stable chronic microvascular disease without evidence of acute stroke or acute intracranial process by MRI. Impression dictated by: Gee Hutchins M.D. 04/07/2025 3:50 PM Dictation Location: [place] [address] Electronically authenticated by: [id number] Date: 04/07/2025 15:50
--- OUTSIDE RECORDS SUMMARY | 2025-04-03 13:39 | XMS_ITS | CCD ---
Author Organization [facility] CliniSywi Care Team Providers Care Dog Handler Name Role Phone Griselda Hastings Primary Care Provider Griselda Hastings Attending Provider Griselda Hastings Unavailable Unavailable Unavailable Griselda Hastings Unavailable Sheng Schneider Unavailable Griselda Hastings Primary Care Provider [phone] Griselda Hastings Unavailable DO Griselda Hastings Primary [...] Carney Unavailable Griselda Hastings Primary Care Provider [phone] KunGriselda meneses Unavailable Tammi NORRIS, Oziel Ruiz Unavailable [phone] FLORES CAT Attending Unavailable FLORES CAT Admitting Unavailable KUNS, GRISELDA WRIGHT Primary Care Unavailable Kuns, DO Griselda Primary Care Provider [phone] Kuns, DO Griselda Attending Provider MD Lima Joseph Attending Provider Dr. BRET HDEZ Attending Unavailable PCP, OTHER Primary Care Unavailable PCP, Other Primary Care Physician [phone] Kuns, DO Griselda Primary Care Provider [phone] BAILEY Gaytan Emergency Provider quentin, DO Rohit Mullins Emergency Provider [phone] Darling, DO Griselda Attending Provider [phone] Lilliam Cason Unavailable Andreas, DO Griselda Primary Care Provider BAIELY Gaytan Emergency Provider [phone] Tuquentin, DO Rohit Mullins Emergency Provider Darling, DO Griselda Attending Provider MD Lilliam Cason Attending Provider Ruddy Harvey Unavailable [phone] BAILEY Mota Attending Provider MD Ruddy Harvey Attending Provider Kuns, DO Griselda Primary Care Provider [phone] Kuns DO, Griselda R Primary Care Provider [...] Attending Provider AndreasGriselda Zackary Primary Care Provider [phone] Oziel Cadena MD Unavailable Kuns DO, Griselda R Primary Care Provider Milks PA-C, Solomon A Unavailable Milks PA-C, Solomon A Unavailable Kuns DO, Griselda R Primary Care Provider Andreas DO, Griselda Primary Care Provider [phone] Milks PA-C, Solomon A Attending Provider Andreas DO, Griselda Primary Care Provider Milks PA-C, Solomon A Attending Provider [phone] Wes NORRIS, Ruddy Moraes Attending Provider Daisy Paul MD Emergency Provider Kuns DO, Griselda R Primary Care Provider Andreas DO, Griselda Primary Care Provider [phone] Manisha Negron APRN Emergency Provider Kuns DO, Griselda Other Provider Manisha Negron APRN Attending Provider Milks PA-C Solomon Nae Attending Provider [phone] Andreas DO, Griselda R Primary Care Provider [...] Attending Provider Kuns DO Griselda Attending Provider [phone] HARRIS, XIAOFEI Referring Unavailable KUNS, GRISELDA R [...] Unavailable Kuns DO, Griselda Primary Care Provider [phone] Lilliam Cason MD Attending Provider Danya CERVANTES, Elizabeth Mullins Attending Provider Conchita NORRIS, Nathanael Other Provider Solomon Montez APRN Attending Provider Kuns , Griselda Attending Provider [phone] Roxy NORRIS, Sarina Badillo Attending Unavailable Roxy NORRIS, Sarina Barnettytsharla Attending Unavailable Giedraitis , Andrius Vytautas Attending Unavailable Giedraitis , Andrius Vytautscott Attending Unavailable Giedraitis , Andrius Vytautas Attending Unavailable Giedraitis , Andrius Vytautas Attending Unavailable Kuns DO, Griselda Primary Care Provider Solomon Montez APRN Attending Provider Roxy NORRIS, Sarina Attending Provider Sofia Arias DO Attending Provider [phone] Kuns DO, Griselda Primary Care Provider Kun [...] Attending Unavailable OZIEL CADENA Attending Unavailable OZIEL ACDENA Attending Unavailable OZIEL CADENA Attending Unavailable DORETHA HARRIS Unavailable ANAHI FRANCO Attending Unavailable OZIEL CADENA Attending Unavailable OZIEL CADENA Attending Unavailable OZIEL CADENA Attending Unavailable OZIEL CADENA Attending Unavailable DEBRA FIGUEROA Attending Unavailable DEBRA FIGUEROA Referring Unavailable Unavailable Unavailable Unavailable Allergies Allergy Classification Reported Allergen(s) Allergy Type Date of Onset Reaction(s) Facility Cephalosporins (antibiotic) (1 source) Cephalexin Drug Allergy 8 [facility] (20 sources) Cephalexin; Translations: [CEPHALEXIN] Drug Allergy 8 [facility] (20 sources) Cephalexin; Translations: [Keflex] Drug Allergy rash Retention Education Other (1 source) Cephalexin; Translations: [Keflex] [facility]ergy [facility] (17 sources) Keflet; Translations: [KEFLET] Propensity to adverse reactions 4 [facility] (4 sources) varenicline; Translations: [varenicline] Drug Allergy 5 [facility] (1 source) ALLERGIES NOT ON FILE; Translations: [ALLERGIES NOT ON FILE] Propensity to adverse reactions (disorder) [facility] Repository NEGATED: Highlighted row has been ruled out! (1 source) natural latex rubber; Translations: [LATEX, NATURAL RUBBER] Drug allergy (disorder) [place] NEGATED: Highlighted row has been ruled out! (1 source) No IV Contrast Allergy.; Translations: [IV Dye, Iodine Containing] Drug allergy (disorder) [place] Medications Current Medications Medication Drug Class(es) Dates [...] 28, 2024 10:44am Start: 10-10-2023 HYDROcodone-ac etaminophen ([place]) 5-325 MG tablet 10/10/2023 Active Start: 09-05-2023 End: 04-01-2024 take 1 tablet by mouth every eight hours as needed Hydrocodone-Acetaminophen 5-325 mg table t Discontinued TAB PO Every 8 hours as needed September 05, 2023 12:00am April 01, 2024 11:01am Start: 06-04-2023 take 1 tablet by myles th once daily as needed for pain HYDROcodone-acetaminophen ([place]) 5-325 MG tablet take 1 tablet orally daily NEEDED FOR PAIN MUST LAST 30 DAYS 10/10/2023 Active Start: 12-10-2017 End: 04-29-2018 take 1 tablet by mouth every four hours Hydrocodone-Acetaminophen ([place]) 5-325 mg tablet Discontinued 1 TAB PO Q4H December 10, 2017 April 29, 2018 3:12pm End: 04-10-2024 take 1.5 tablets by mouth twice daily as needed for pain HYDROcodone-acetaminophen ([place]) 5-325 mg tablet Take 1.5 tablets by [...] (15 sources) take 1 capsule by mo [facility] once daily Multivitamin capsule Take 1 capsule by mouth once daily. Active take 1 capsule by mouth once danitza ly Multivitamin capsule Take 1 capsule by mouth once daily. 0 Active Comment on above: Take 1 capsule by mo [facility] once daily. Naloxone (1 [...] November 17, 2024 2:16pm polyethylene glycol 3350 14925 mg powder for oral solution (1 source) [...] AFTERNOON and 2 at bedtime as directed [id number] 200 actuat albuterol 0.09 mg/actuat metered dose [...] 26, 2023 12:00am May 07, 2023 9:23am [id number] Gdh-Elay-Ade-Asb-C (10 sources) Osmotic Laxative, Vitamin C Start: 10-10-2024 End: 10-24-2024 [id number] Fmm-Qgzf-Ezv-Asb-C (Plenvu) 140-9-5.2 gram powder in packet, sequential Discontinued 0 PO .COMPLEX 3 October 10, 2024 12:00am October 24, 2024 11:48am PO Start: 10-10-2024 [id number] Cantrell k-Nyzq-Mmr-Asb-C (Plenvu) 140-9-5.2 gram powder in packet, sequential [...] Comment on above: Take 1 tablet by [facility] twice daily. dexamethasone phosphate 4 mg/ml [...] Comment on above: TAKE 1 CAPSULE BY [facility] EVERY 12 HOURS FOR 10 [...] 02/27/2019 10/17/2022 Discontinued take [address] [facility] every twenty-four hours Gabapentin 100 MG 1 capsule Orally Once a day Not-Taking/PRN Comment on above: Take [address] [facility] three times daily for 30 days. [...] 17, 2022 9:01am [facility] daily at mealtime as [...] 2023 1:48pm take [address] [facility] once daily at mealtime indomethacin SR (Indocin SR) 75 MG ER capsule indomethacin ER 75 mg capsule,extended release take 1 capsule by mouth once daily with food 0 Active take [address] [facility] every twenty-four hours Indomethacin ER 75 [...] Coronary arteriosclerosis; Translations: [Atherosclerotic heart disease of [place] coronary artery without angina pectoris] Onset: 4 [...] US ankle/arm indiceson 02-27 US ankle/arm indices [facility] [place] [address] Ultrasound Report Signed Patient: Shantel Melendez MR#: [id number] : 1960 Acct:[id number] Age/Sex: 64 / M ADM Date: 02/26/25 Loc: Room: Type: [employer] Attending Dr: Griselda Hastings DO Ordering Provider: [...] Harvey MD,FACS,FSVS 02/27/2025 7:42 AM Dictation Location: [facility]04 Tech: Agueda Helm Transcribed By: MARISA 02/27/25741 Dictated By: Ruddy Harvey MD 02/27/2541 Signed By: 02/27/25741 Normal [facility] Basophils Auto (Bld) [#/Vol] Ordered By: Sofia Marker on 02-18-2025 Basophils (Bld) [#/Vol] 0.1 10 3/uL 0.0-0.1 [facility] Basophils/100 WBC Auto (Bld) Ordered By: Sofia Marker on 02-18-2025 Basophils/100 WBC (Bld) 0.7 % 0.2-2.0 [facility] Eosinophils/100 WBC Auto (Bl d)Ordered By: Sofia Marker on 02-18-2025 Eosinophils/100 WBC (Bld) 1.1 % 0.9-7.0 [facility] Erythrocyte distribution wid th Auto (RBC) [Ratio]Ordered By: Sofia Marker on 02-18-2025 Erythrocyte distribution width (RBC) [Ratio] 13.4 % 11.0-15.0 [facility] Fibrin D-dimer [Presence] in Platelet poor plasma by Latex agglutinationOrdered By: Sofia Marker on 02-18-2025 Fibrin D-dimer LA Ql (PPP) 0.56 mg/L FEU <=0.59 [facility] Comment on above: Increases in D-Dimer [...] on 02-18-2025 Globulin (S) [Mass/Vol] 2.5 g/dL [facility] Glomerular filtration rate ( GFR) estimation in non- AmericanOrdered By: Sofia Marker on 02-18-2025 GFR/1.73 sq M.predicted among non-blacks MDRD (S/P/Bld) [Vol rate/Area] mL/min/{1.73_m2} >=60 mL/min/1.7 3m 2 [facility] Hematocrit Auto (Bld) [Volum e fraction]Ordered By: Sofia Marker on 02-18-2025 Hematocrit (Bld) [Volume fraction] 39.7 % Low 42.0-54.0 [facility] Hemoglobin [Mass/volume] in BloodOrdered By: Sofia Marker on 02-18-2025 Hemoglobin (Bld) [Mass/Vol] 13.8 g/dL Low 14.0-18.0 [facility] Laboratory - Chemistry and C hemistry - challengeOrdered By: Sofia Marker on 02-18-2025 Albumin [Mass/Vol] 3.0 g/dL Low 3.4-5.0 [facility] ALP [Catalytic activity/Vol] 68 U/L 46-116 [facility] ALT [Catalytic activity/Vol] 18 U/L 16-63 [facility] AST [Catalytic activity/Vol] 11 U/L Low 15-37 [facility] Bilirubin [Mass/Vol] 0.8 mg/dL 0.2-1.0 [facility] Calcium [Mass/Vol] 9.5 mg/dL 8.5-10.1 [facility] Chloride [Moles/Vol] 108 mmol/L High 98-107 [facility] CO2 [Moles/Vol] 27.5 mmol/L 21.0-32.0 [place] Creatinine [Mass/Vol] 0.87 mg/dL 0.70-1.30 [facility] GFR/1.73 sq M.predicted MDRD (S/P/Bld) [Vol rate/Area] mL/min/{1.73_m2} >=60 mL/min/1.7 3m 2 [facility] Glucose [Mass/Vol] 78 mg/dL 74-106 [facility] Potassium [Moles/Vol] 4.1 mmol/L 3.5-5.1 [facility] Protein [Mass/Vol] 5.5 g/dL Low 6.4-8.2 [facility] Sodium [Moles/Vol] 144 mmol/L 136-145 [facility] Urea nitrogen [Mass/Vol] 11.0 mg/dL 7.0-18.0 [facility] Urea nitrogen/Creatinine [Mass ratio] 12.6 mg/mg [facility] Laboratory - Hematology and Cell countsOrdered By: Sofia Marker on 02-18-2025 Immature granulocytes/100 WBC (Bld) 0.3 % 0.0-0.5 [facility] Leukocytes [#/volume] correc mone for nucleated erythrocytes in Blood by Automated counOrdered By: Sofia Marker on 02-18-2025 WBC corrected for nucl RBC Auto (Bld) [#/Vol] 7.4 10 3/uL 4.0-11.0 [facility] Lymphocytes Auto (Bld) [#/Vo l]Ordered By: Sofia Marker on 02-18-2025 Lymphocytes (Bld) [#/Vol] 2.1 10 3/uL 1.2-3.8 [facility] Lymphocytes/100 WBC Auto (Bl d)Ordered By: Sofia Marker on 02-18-2025 Lymphocytes/100 WBC (Bld) 28.8 % 20.5-60.0 [facility] MCH Auto (RBC) [Entitic mass ]Ordered By: Sofia Marker on 02-18-2025 MCH (RBC) [Entitic mass] 32.5 pg 25.9-34.0 [facility] MCHC Auto (RBC) [Mass/Vol]Or dered By: Sofia Marker on 02-18-2025 MCHC (RBC) [Mass/Vol] 34.8 g/dL 29.9-35.2 [facility] MCV Auto (RBC) [Entitic vol] Ordered By: Sofia Marker on 02-18-2025 MCV (RBC) [Entitic vol] 93.4 fL 80.0-94.0 [facility] Monocytes Auto (Bld) [#/Vol] Ordered By: Sofia Marker on 02-18-2025 Monocytes (Bld) [#/Vol] 0.4 10 3/uL 0.3-0.8 [facility] Monocytes/100 WBC Auto (Bld) Ordered By: Sofia Marker on 02-18-2025 Monocytes/100 WBC (Bld) 5.6 % 1.7-12.0 [facility] Neutrophils Auto (Bld) [#/Vo l]Ordered By: Sofia Marker on 02-18-2025 Neutrophils (Bld) [#/Vol] 4.7 10 3/uL 1.4-6.5 [facility] Neutrophils/100 WBC Auto (Bl d)Ordered By: Sofia Marker on 02-18-2025 Neutrophils/100 WBC (Bld) 63.5 % 43.0-75.0 [facility] No Panel InformationOrdered By: Sofia Marker on 02-18-2025 Eosinophils # (Auto) 0.1 10 3/uL 0.0-0.7 [facility] Immature Granulocyte # (Auto) 0.02 10 3/uL 0.00-0.03 [facility] Troponin I High Sensitivity 11.3 pg/mL 4.0-76.1 [facility] Comment on above: CUT-OFF POINTS HAVE [...] volume (Bld) [Entitic vol] 11.4 fL 9.5-13.5 [facility] Platelets Auto (Bld) [#/Vol] Ordered By: Sofia Marker on 02-18-2025 Platelets (Bld) [#/Vol] 246 10 3/uL 150-450 [facility] RBC Auto (Bld) [#/Vol]Ordere d By: Sofia Marker on 02-18-2025 RBC (Bld) [#/Vol] 4.25 10 6/uL Low 4.70-6.10 [facility] Serum or plasma albumin/glob ulin mass ratioOrdered By: Sofia Marker on 02-18-2025 Albumin/Globulin [Mass ratio] 1.2 {ratio} [facility] Serum or plasma anion gap de terminationOrdered By: Sofia Marker on 02-18-2025 Anion gap [Moles/Vol] 12.6 mmol/L [facility] 36on 02-13-2025 36 Patient scheduled fo r 03/24/25 @ 10:30am Normal [facility] 36 LVM for pt to call fatimah ferrer to schedule consult with Dr. Figueroa to discuss SCS placement. Imaging requested. Please transfer pt to pre reg after call. Please inform signwriter when scheduled. [employer] reps will need notified. Normal [facility] Telephoneon 02-13-2025 Telephone [phone] Shantel Melendez 1960 M Date Provider Department Center 02/13/2025 AYAH ALCOCER [facility] SURG Second Fl No family history on file Normal [facility] Activated partial thrombopla stin time (aPTT) in platelet poor plasma by coagulation aOrdered By: Andrius Giedraitis on 01-27-2025 aPTT Coag (PPP) [Time] 24.2 s 22.3-36.2 [facility] Basophils Auto (Bld) [#/Vol] Ordered By: Andrius Giedraitis on 01-27-2025 Basophils (Bld) [#/Vol] 0.0 10 3/uL 0.0-0.1 [facility] Basophils/100 WBC Auto (Bld) Ordered By: Andrius Giedraitis on 01-27-2025 Basophils/100 WBC (Bld) 0.2 % 0.2-2.0 [facility] Eosinophils/100 WBC Auto (Bl d)Ordered By: Andrius Giedraitis on 01-27-2025 Eosinophils/100 WBC (Bld) 0.1 % Low 0.9-7.0 [facility] Erythrocyte distribution wid th Auto (RBC) [Ratio]Ordered By: Andrius Giedraitis on 01-27-2025 Erythrocyte distribution width (RBC) [Ratio] 14.1 % 11.0-15.0 [facility] Glomerular filtration rate ( GFR) estimation in non- AmericanOrdered By: Sarina Ramsey on 01-27-2025 GFR/1.73 sq M.predicted among non-blacks MDRD (S/P/Bld) [Vol rate/Area] mL/min/{1.73_m2} >=60 mL/min/1.[address] [place] [address] Hematocrit Auto (Bld) [Volum e fraction]Ordered By: Sarina Ramsey on 01-27-2025 Hematocrit (Bld) [Volume fraction] 38.0 % Low 42.0-54.0 [facility] Hemoglobin [Mass/volume] in BloodOrdered By: Sarina Ramsey on 01-27-2025 Hemoglobin (Bld) [Mass/Vol] 13.0 g/dL Low 14.0-18.0 [facility] INR in Platelet poor plasma by Coagulation assayOrdered By: Sarina Ramsey on 01-27-2025 INR Coag (PPP) [Relative time] 1.09 {INR} [facility] Comment on above: DESIRED INR:2.0-3.0 CONDITIONS NOT LISTED BELOW2.5-3.5 FOR PROSTHETIC HEART VALVE REPLACEMENT2.5-3.5 RECURRENT THROMBOSIS Laboratory - Chemistry and C hemistry - challengeOrdered By: Sarina Ramsey on 01-27-2025 Calcium [Mass/Vol] 9.2 mg/dL 8.5-10.1 [facility] Chloride [Moles/Vol] 106 mmol/L 98-107 [facility] CO2 [Moles/Vol] 28.7 mmol/L 21.0-32.0 [place] Creatinine [Mass/Vol] 0.81 mg/dL 0.70-1.30 [facility] GFR/1.73 sq M.predicted MDRD (S/P/Bld) [Vol rate/Area] mL/min/{1.73_m2} >=60 mL/min/1.[address] [place] [address] Glucose [Mass/Vol] 89 mg/dL 74-106 [facility] Potassium [Moles/Vol] 3.7 mmol/L 3.5-5.1 [facility] Sodium [Moles/Vol] 138 mmol/L 136-145 [facility] Urea nitrogen [Mass/Vol] 17.0 mg/dL 7.0-18.0 [facility] Urea nitrogen/Creatinine [Mass ratio] 21.0 mg/mg [facility] Laboratory - Hematology and Cell countsOrdered By: Sarina Ramsey on 01-27-2025 Immature granulocytes/100 WBC (Bld) 0.2 % 0.0-0.5 [facility] Leukocytes [#/volume] correc mone for nucleated erythrocytes in Blood by Automated counOrdered By: Andguillaume Ramsey on 01-27-2025 WBC corrected for nucl RBC Auto (Bld) [#/Vol] 8.2 10 3/uL 4.0-11.0 [facility] Lymphocytes Auto (Bld) [#/Vo l]Ordered By: Andguillaume Ramsey on 01-27-2025 Lymphocytes (Bld) [#/Vol] 2.4 10 3/uL 1.2-3.8 [facility] Lymphocytes/100 WBC Auto (Bl d)Ordered By: Andguillaume Flowersrajovany on 01-27-2025 Lymphocytes/100 WBC (Bld) 29.3 % 20.5-60.0 [facility] MCH Auto (RBC) [Entitic mass ]Ordered By: Andguillaume Flowersrajovany on 01-27-2025 MCH (RBC) [Entitic mass] 32.1 pg 25.9-34.0 [facility] MCHC Auto (RBC) [Mass/Vol]Or dered By: Andrius Kristieraitis on 01-27-2025 MCHC (RBC) [Mass/Vol] 34.2 g/dL 29.9-35.2 [facility] MCV Auto (RBC) [Entitic vol] Ordered By: Andrius Kristieraitis on 01-27-2025 MCV (RBC) [Entitic vol] 93.8 fL 80.0-94.0 [facility] Monocytes Auto (Bld) [#/Vol] Ordered By: Andrius Giedraitis on 01-27-2025 Monocytes (Bld) [#/Vol] 0.4 10 3/uL 0.3-0.8 [facility] Monocytes/100 WBC Auto (Bld) Ordered By: Andrius Giedraitis on 01-27-2025 Monocytes/100 WBC (Bld) 5.0 % 1.7-12.0 [facility] Neutrophils Auto (Bld) [#/Vo l]Ordered By: Andrius Giedraitis on 01-27-2025 Neutrophils (Bld) [#/Vol] 5.4 10 3/uL 1.4-6.5 [facility] Neutrophils/100 WBC Auto (Bl d)Ordered By: Andrius Giedraitis on 01-27-2025 Neutrophils/100 WBC (Bld) 65.2 % 43.0-75.0 [facility] No Panel InformationOrdered By: Andrius Giedraitis on 01-27-2025 Eosinophils # (Auto) 0.0 10 3/uL 0.0-0.7 [facility] Immature Granulocyte # (Auto) 0.02 10 3/uL 0.00-0.03 [facility] Platelet mean volume Auto (B ld) [Entitic vol]Ordered By: Andrius Giedraitis on 01-27-2025 Platelet mean volume (Bld) [Entitic vol] 11.4 fL 9.5-13.5 [facility] Platelets Auto (Bld) [#/Vol] Ordered By: Andrius Giedraitis on 01-27-2025 Platelets (Bld) [#/Vol] 214 10 3/uL 150-450 [facility] Prothrombin time (PT)Ordered By: Andrius Giedraitis on 01-27-2025 PT Coag (PPP) [Time] 11.5 s 9.0-11.6 [facility] RBC Auto (Bld) [#/Vol]Ordere d By: Andrius Giedraitis on 01-27-2025 RBC (Bld) [#/Vol] 4.05 10 6/uL Low 4.70-6.10 [facility] Serum or plasma anion gap de terminationOrdered By: Sarina Ramsey on 01-27-2025 Anion gap [Moles/Vol] 7.0 mmol/L [facility] No Panel Informationon 01-08 [facility] XR CERVICAL SPINE 2-3 VIEWSo n [...] By: Yehuda Pozo on 2024 Study report [facility] Main [place] [address] [place] [address] XRay Report Signed Patient: Shantel Melendez MR#: [id number] : 1960 Acct:[id number] Age/Sex: 64 / M ADM Date: 5 Loc: XDSHC Room: Type: [facility] Attending Dr: Griselda Hastings DO [...] D.OMaria R 2024 4:30 PM Dictation Location: [place] [address] Transcribed By: [facility] 11/24/24 1630 Dictated By: Yung Pozo Jr, DO 11/24/24 1630 Signed By: 11/24/24 1630 [facility] XR chest 2V*on 2024 XR chest 2V* [facility] [place] [address] [place], [place] [id number] XRay Report Signed Patient: Shantel Melendez MR#: [id number] : 1960 Acct:[id number] Age/Sex: 64 / M ADM Date: 11/24/24 Loc: XDS Room: Type: [employer] Attending Dr: Griselda Hastings DO Copies to: [...] D.OMaria R 2024 4:30 PM Dictation Location: [place] [address] Transcribed By: [facility] 11/24/24 1630 Dictated By: Yung Pozo Jr, DO 11/24/24 1630 Signed By: 11/24/24 1630 Normal [facility] Influenza virus B Ag [Presen ce] in Upper respiratory specimen by Rapid immunoassayon 11-19-2024 FLUBV Ag IA.rapid Ql (Nph) Influenza virus B Ag [Presence] in Upper respiratory specimen by Rapid immunoassay [facility] FLUBV Ag IA.rapid Ql (Nph) Negative [facility] No Panel Informationon 11-19 Influenza Type A (Rapid) Negative [facility] POC SARS CoV-2 Antigen Negative [facility] No Panel InformationOrdered By: Griselda Hastings on 11-19-2024 Quick Strep (POC) [facility] RSV (POC) [facility] CNOVSPon 11-07-2024 CNOVSP Visit (SP) Office ([place]) ----- SHANTEL MELENDEZ ([id number]) 1960 M Date Time Provider Department 11/07/24 9:20 AM RACQUEL COLE During your visit today, we recorded the following information about you: Temperature Pulse Respiration Blood pressure 97.5 degrees 72/minute 16/minute 115/89 Weight Height 79.3 kg 1.706 m Racquel Cole MD 11/07/2024 11:09 AM Signed NAME: Shantel Melendez CLINIC NO.: [id number] DATE OF SERVICE: November 07, 2024 ([place]) Some elements in this clinic note that are critical to medical decision making have been carefully reviewed and included from a prior clinic note dated: November 02, 2023 ([place]) Referring Provider: Griselda Hastings DO Additional Clinicians involved in Shantel Melendez's care: Dr Kimberly Nichole ENT, Dr. 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 10/05/2021 - MRI Brain: [facility] There is T2 and T2 flair hyperintense [...] may represent (more content not included)... Normal [facility] No Panel InformationOrdered By: Nathanael Arango on 11-05-2024 Miscellaneous Pathology Test See comment [facility] Comment on above: See report. Scanned copy available in EMR. Pathology Request for Lab Co rpon 11-05-2024 Pathology Request for Lab Nancy Normal [facility] Comment on above: Order Comment: MARITZA MEEK ECIMEN Result Comment: See report. Scanned copy available in EMR. PERFORMED BY: [place] [address] PATHOLOGIST DIALYSIS NURSE EDUARDO HOLLINGSWORTH M.D. Performed By: #### P ATH TO [facility] #### [address] Basophils Auto (Bld) [#/Vol] on 11-03-2024 Basophils (Bld) [#/Vol] Automated basophil count <0.11 [facility] Basophils (Bld) [#/Vol] 0.06 10*3/uL <0.11 [facility] Basophils/100 WBC Auto (Bld) on 11-03-2024 Basophils/100 WBC (Bld) Automated basophil % [facility] Basophils/100 WBC (Bld) 1.0 % [facility] Blood manual differential co mment interpretation narrativeon 11-03-2024 Manual differential comment [place] (Bld) [Interp] Blood manual differential comment interpretation narrative [facility] Manual differential comment Curtis (Bld) [Interp] Auto [facility] CBC W Auto Differential pane l (Bld)on 11-03-2024 Basophils (Bld) [#/Vol] 0.06 10*3/uL [facility] Basophils/100 WBC (Bld) 1 % [facility] Differential cell count method Nom (Bld) Auto [facility] Eosinophils (Bld) [#/Vol] 0.16 10*3/uL [facility] Eosinophils/100 WBC (Bld) 2.7 % [facility] Immature granulocytes (Bld) [#/Vol] [facility] Immature granulocytes/100 WBC (Bld) [...] [facility] Monocytes (Bld) [#/Vol] 0.4 10*3/uL [facility] Monocytes/100 WBC (Bld) 6.6 % [facility] Neutrophils (Bld) [#/Vol] 2.67 10*3/uL [facility] Neutrophils/100 WBC (Bld) 44.2 % [facility] Nucleated RBC (Bld) [#/Vol] [facility] Nucleated RBC/100 WBC (Bld) [Ratio] 0 [...] WBC (Bld) [#/Vol] 6.03 10*3/uL [facility] Basophils (Bld) [#/Vol] 0.06 10*3/uL Normal <0.11 [facility] Comment on above: Order Comment: Speci men Type: BLOOD SPECIMEN Ordering Facility: [facility] Address: [address] [place] [address] Performed By: #### 5 7021-8 #### [facility] CLIA [id number] [address] [place] [address] 64[address] Basophils/100 WBC (Bld) 1.0 % Normal [facility] Comment on above: Order Comment: Speci men Type: BLOOD SPECIMEN Ordering Facility: [facility] Address: [address] [place] [address] Performed By: #### 5 7021-8 #### [facility] CLIA [id number] [address] [place] [address] 80556 Differential cell count method Nom (Bld) Auto Normal [facility] Comment on above: Order Comment: Speci men Type: BLOOD SPECIMEN Ordering Facility: [facility] Address: [address] [place] [address] Performed By: #### 5 7021-8 #### [facility] CLIA [id number] [address] [place] [address] 69098 Eosinophils (Bld) [#/Vol] 0.16 10*3/uL Normal <0.46 [facility] Comment on above: Order Comment: Speci men Type: BLOOD SPECIMEN Ordering Facility: [facility] Address: [address] [place] [address] Performed By: #### 5 7021-8 #### [facility] CLIA [id number] [address] [place] [address] 72206 Eosinophils/100 WBC (Bld) 2.7 % Normal [facility] Comment on above: Order Comment: Speci men Type: BLOOD SPECIMEN Ordering Facility: [facility] Address: [address] [place] [address] Performed By: #### 5 7021-8 #### [facility] CLIA [id number] [address] [place] [address] 64127 Erythrocyte distribution width (RBC) [Ratio] 14.6 % Normal 11.5-15.0 [facility] Comment on above: Order Comment: Speci men Type: BLOOD SPECIMEN Ordering Facility: [facility] Address: [address] [place] [address] Performed By: #### 5 7021-8 #### [facility] CLIA [id number] [address] [place] [address] 60038 Hematocrit (Bld) [Volume fraction] 40.0 % Normal 39.0-51.0 [facility] Comment on above: Order Comment: Speci men Type: BLOOD SPECIMEN Ordering Facility: [facility] Address: [address] [place] [address] Performed By: #### 5 7021-8 #### [facility] CLIA [id number] [address] [place] [address] 67711 Hemoglobin (Bld) [Mass/Vol] 13.6 g/dL Normal 13.0-17.0 [facility] Comment on above: Order Comment: Speci men Type: BLOOD SPECIMEN Ordering Facility: [facility] Address: [address] [place] [address] Performed By: #### 5 7021-8 #### [facility] CLIA [id number] [address] [place] [address] 25518 Immature granulocytes (Bld) [#/Vol] 10*3/uL Normal <0.10 [facility] Comment on above: Order Comment: Speci men Type: BLOOD SPECIMEN Ordering Facility: [facility] Address: [address] [place] [address] Performed By: #### 5 7021-8 #### [facility] CLIA [id number] [address] [place] [address] 83440 Immature granulocytes/100 WBC (Bld) 0.2 % Normal [facility] Comment on above: Order Comment: Speci men Type: BLOOD SPECIMEN Ordering Facility: [facility] Address: [address] [place] [address] Performed By: #### 5 7021-8 #### [facility] CLIA [id number] [address] [place] [address] 24980 Lymphocytes (Bld) [#/Vol] 2.73 10*3/uL Normal 1.00-4.00 [facility] Comment on above: Order Comment: Speci men Type: BLOOD SPECIMEN Ordering Facility: [facility] Address: [address] [place] [address] Performed By: #### 5 7021-8 #### [facility] CLIA [id number] [address] [place] [address] 18205 Lymphocytes/100 WBC (Bld) 45.3 % Normal [facility] Comment on above: Order Comment: Speci men Type: BLOOD SPECIMEN Ordering Facility: [facility] Address: [address] [place] [address] Performed By: #### 5 7021-8 #### [facility] CLIA [id number] [address] [place] [address] 23674 MCH (RBC) [Entitic mass] 31.9 pg Normal 26.0-34.0 [facility] Comment on above: Order Comment: Speci men Type: BLOOD SPECIMEN Ordering Facility: [facility] Address: [address] [place] [address] 18[address] Performed By: #### 5 7021-8 #### [facility] CLIA [id number] [address] [place] [address] 45381 MCHC (RBC) [Mass/Vol] 34.0 g/dL Normal 30.5-36.0 [facility] Comment on above: Order Comment: Speci men Type: BLOOD SPECIMEN Ordering Facility: [facility] Address: [address] [place] [address] Performed By: #### 5 7021-8 #### [facility] CLIA [id number] [address] [place] [address] 78673 MCV (RBC) [Entitic vol] 93.9 fL Normal 80.0-100.0 [facility] Comment on above: Order Comment: Speci men Type: BLOOD SPECIMEN Ordering Facility: [facility] Address: [address] [place] [address] Performed By: #### 5 7021-8 #### [facility] CLIA [id number] [address] [place] [address] 43575 Monocytes (Bld) [#/Vol] 0.40 10*3/uL Normal <0.87 [facility] Comment on above: Order Comment: Speci men Type: BLOOD SPECIMEN Ordering Facility: [facility] Address: [address] [place] [address] Performed By: #### 5 7021-8 #### [facility] CLIA [id number] [address] [place] [address] 12661 Monocytes/100 WBC (Bld) 6.6 % Normal [facility] Comment on above: Order Comment: Speci men Type: BLOOD SPECIMEN Ordering Facility: [facility] Address: [address] [place] [address] Performed By: #### 5 7021-8 #### [facility] CLIA [id number] [address] [place] [address] 38855 Neutrophils (Bld) [#/Vol] 2.67 10*3/uL Normal 1.45-7.50 [facility] Comment on above: Order Comment: Speci men Type: BLOOD SPECIMEN Ordering Facility: [facility] Address: [address] [place] [address] 23394 Performed By: #### 5 7021-8 #### [facility] CLIA [id number] [address] [place] [address] 33022 Neutrophils/100 WBC (Bld) 44.2 % Normal [facility] Comment on above: Order Comment: Speci men Type: BLOOD SPECIMEN Ordering Facility: [facility] Address: [address] [place] [address]2222 Performed By: #### 5 7021-8 #### [facility] CLIA [id number] [address] [place] [address] 96016 Nucleated RBC (Bld) [#/Vol] 10*3/uL Normal <0.01 [facility] Comment on above: Order Comment: Speci men Type: BLOOD SPECIMEN Ordering Facility: [facility] Address: [address] [place] [address] Performed By: #### 5 7021-8 #### [facility] CLIA [id number] [address] [place] [address] 95153 Nucleated RBC/100 WBC (Bld) [Ratio] 0.0 /100 WBC Normal [facility] Comment on above: Order Comment: Speci men Type: BLOOD SPECIMEN Ordering Facility: [facility] Address: [address] [place] [address] Performed By: #### 5 7021-8 #### [facility] CLIA [id number] [address] [place] [address] 15146 Platelet mean volume (Bld) [Entitic vol] 11.0 fL Normal 9.0-12.7 [facility] Comment on above: Order Comment: Speci men Type: BLOOD SPECIMEN Ordering Facility: [facility] Address: [address] [place] [address] Performed By: #### 5 7021-8 #### [facility] CLIA [id number] [address] [place] [address] 82731 Platelets (Bld) [#/Vol] 281 10*3/uL Normal 150-400 [facility] Comment on above: Order Comment: Speci men Type: BLOOD SPECIMEN Ordering Facility: [facility] Address: [address] [place] [address] Performed By: #### 5 7021-8 #### [facility] CLIA [id number] [address] [place] [address] 47951 RBC (Bld) [#/Vol] 4.26 10*6/uL Normal 4.20-6.00 [facility] Comment on above: Order Comment: Speci men Type: BLOOD SPECIMEN Ordering Facility: [facility] Address: [address] [place], [place] [address] Performed By: #### 5 7021-8 #### [facility] CLIA [id number] [address] [place] [address] 87140 WBC (Bld) [#/Vol] 6.03 10*3/uL Normal 3.70-11.00 [facility] Comment on above: Order Comment: Speci men Type: BLOOD SPECIMEN Ordering Facility: [facility] Address: [address] [place], [place] [address] Performed By: #### 5 7021-8 #### [facility] CLIA [id number] [address] [place] [address] 70965 CNPNon 11-03-2024 CNPN Telephone (HEMTSA) ----- SHANTEL MELENDEZ ([id number]) 1960 M Date Time Provider Department 11/03/24 [...] [C76.0] Order(s):COMPREHENSIVE METABOLIC PANEL [SQCMP] Order #: [id number] FUTURE COMPLETE BLOOD COUNT AND DIFFERENTIAL [SQCBCDIF] Order #: [id number] FUTURE Prescriptions as of 11/03/2024 - amLODIPine [...] Status:Closed by RACQUEL COLE on 11/03/[address] [facility] [address] CHEST W IVCONon 5 CT CHEST W IVCON * * *Final Report* * * DATE OF EXAM: Nov 03 2024 8:41AM [facility] 0539 - CT CHEST [...] any questions regarding this interpretation, please call [phone]. If you are unable to reach us at the number above, please feel free to contact [facility] eRadiology at [phone]. [id number] Normal [facility] CT Chest W contrast Tristin IMPRESSION: [...] any questions regarding this interpretation, please call [phone]. If you are unable to reach us at the number above, please feel free to contact [facility] eRadiology at [phone]. DIVISION OF RADIOLOGY * * *Final Report* * * DATE OF EXAM: Nov 03 2024 8:41AM [facility] 0539 - CT CHEST [...] No additional findings. DIVISION OF RADIOLOGY Provider, [facility] - 11/03/2024 * * *Final Report* * * DATE OF EXAM: Nov 03 2024 8:41AM [facility] 0539 - CT CHEST [...] any questions regarding this interpretation, please call [phone]. If you are unable to reach us at the number above, please feel free to contact [facility] eRadiology at [phone]. [facility] CT NECK SOFT TISSUE W IVCONo n 11-03-2024 CT NECK SOFT TISSUE W IVCON * * *Final Report* * * DATE OF EXAM: Nov 03 2024 8:41AM [facility] 0013 - CT NECK [...] evidence of abnormal lymph nodes. [email or web address] Transcribe Date/Time: Nov 03 2024 8:53A Dictated by: BENJAMIN AL MD This examination was interpreted and the report reviewed and electronically signed by: BENJAMIN AL MD on Nov 03 2024 9:01AM EST Thank you for allowing us to participate in the care of your patient. Should there be any questions regarding this interpretation, please call [phone]. If you are unable to reach us at the number above, please feel free to contact [facility] eRadiology at [phone]. [id number] Normal [facility] CT Neck W contrast Trsitin - IMPRESSION: Primary: Category 1. Expected post-treatment changes in the neck without evidence of recurrent disease in the primary site. Neck: Category 1. No evidence of abnormal lymph nodes. [email or web address] Transcribe Date/Time: Nov 03 2024 8:53A Dictated by: BENJAMIN AL MD This examination was interpreted and the report reviewed and electronically signed by: BENJAMIN AL MD on Nov 03 2024 9:01AM EST Thank you for allowing us to participate in the care of your patient. Should there be any questions regarding this interpretation, please call [phone]. If you are unable to reach us at the number above, please feel free to contact [facility] eRadiology at [phone]. DIVISION OF RADIOLOGY * * *Final Report* * * DATE OF EXAM: Nov 03 2024 8:41AM [facility] 0013 - CT NECK [...] Other: Not applicable. DIVISION OF RADIOLOGY Provider, [facility] - 11/03/2024 * * *Final Report* * * DATE OF EXAM: Nov 03 2024 8:41AM [facility] 0013 - CT NECK [...] evidence of abnormal lymph nodes. [email or web address] Transcribe Date/Time: Nov 03 2024 8:53A Dictated by: BENJAMIN AL MD This examination was interpreted and the report reviewed and electronically signed by: BENJAMIN AL MD on Nov 03 2024 9:01AM EST Thank you for allowing us to participate in the care of your patient. Should there be any questions regarding this interpretation, please call [phone]. If you are unable to reach us at the number above, please feel free to contact [facility] eRadiology at [phone]. [facility] CT Neck W contrast IVOrdered By: Ccf Provider on 11-03-2024 [facility] Eosinophils/100 WBC Auto (Bl d)on 11-03-2024 Eosinophils/100 WBC (Bld) Automated eosinophil % [facility] Eosinophils/100 WBC (Bld) 2.7 % [facility] Erythrocyte distribution wid th Auto (RBC) [Ratio]on 11-03-2024 Erythrocyte distribution width (RBC) [Ratio] Erythrocyte distribution width [Ratio] by Automated count 11.5-15.0 [facility] Erythrocyte distribution width (RBC) [Ratio] 14.6 % 11.5-15.0 [facility] Hematocrit Auto (Bld) [Volum e fraction]on 11-03-2024 Hematocrit (Bld) [Volume fraction] Hematocrit [Volume Fraction] of Blood by Automated count 39.0-51.0 [facility] Hematocrit (Bld) [Volume fraction] 40.0 % 39.0-51.0 [facility] Hemoglobin [Mass/volume] in Bloodon 11-03-2024 Hemoglobin (Bld) [Mass/Vol] Hemoglobin [Mass/volume] in Blood 13.0-17.0 [facility] Hemoglobin (Bld) [Mass/Vol] 13.6 g/dL 13.0-17.0 [facility] Laboratory - Hematology and Cell countson 11-03-2024 Eosinophils (Bld) [#/Vol] 0.16 10*3/uL <0.46 [facility] Immature granulocytes/100 WBC (Bld) 0.2 % [facility] Leukocytes [#/volume] correc mone for nucleated erythrocytes in Blood by Automated counon 11-03-2024 WBC corrected for nucl RBC Auto (Bld) [#/Vol] Leukocytes [#/volume] corrected for nucleated erythrocytes in Blood by Automated coun .70-. [facility] WBC corrected for nucl RBC Auto (Bld) [#/Vol] 6.03 k/uL 3.70-11.00 [facility] Lymphocytes Auto (Bld) [#/Vo l]on 11-03-2024 Lymphocytes (Bld) [#/Vol] Lymphocytes [#/volume] in Blood by Automated count 1.00-4.00 [facility] Lymphocytes (Bld) [#/Vol] 2.73 10*3/uL 1.00-4.00 [facility] Lymphocytes/100 WBC Auto (Bl d)on 11-03-2024 Lymphocytes/100 WBC (Bld) Lymphocytes/100 leukocytes in Blood by Automated count [facility] Lymphocytes/100 WBC (Bld) 45.3 % [facility] MCH Auto (RBC) [Entitic mass ]on 11-03-2024 MCH (RBC) [Entitic mass] MCH [Entitic mass] by Automated count 26.0-34.0 [facility] MCH (RBC) [Entitic mass] 31.9 pg 26.0-34.0 [facility] MCHC Auto (RBC) [Mass/Vol]on 11-03-2024 MCHC (RBC) [Mass/Vol] MCHC [Mass/volume] by Automated count 30.5-36.0 [facility] MCHC (RBC) [Mass/Vol] 34.0 g/dL 30.5-36.0 [facility] MCV Auto (RBC) [Entitic vol] on 11-03-2024 MCV (RBC) [Entitic vol] MCV [Entitic volume] by Automated count 80.0-100.0 [facility] MCV (RBC) [Entitic vol] 93.9 fL 80.0-100.0 [facility] Monocytes Auto (Bld) [#/Vol] on 11-03-2024 Monocytes (Bld) [#/Vol] Automated blood monocyte count <0.87 [facility] Monocytes (Bld) [#/Vol] 0.40 10*3/uL <0.87 [facility] Monocytes/100 WBC Auto (Bld) on 11-03-2024 Monocytes/100 WBC (Bld) Automated monocyte % [facility] Monocytes/100 WBC (Bld) 6.6 % [facility] Neutrophils Auto (Bld) [#/Vo l]on 11-03-2024 Neutrophils (Bld) [#/Vol] Neutrophils [#/volume] in Blood by Automated count 1.45-7.50 [facility] Neutrophils (Bld) [#/Vol] 2.67 10*3/uL 1.45-7.50 [facility] Neutrophils/100 WBC Auto (Bl d)on 11-03-2024 Neutrophils/100 WBC (Bld) Automated neutrophil % [facility] Neutrophils/100 WBC (Bld) 44.2 % [facility] No Panel Informationon 11-03 Radiology Study observation (narrative) [facility] Immature Granulocyte # (Auto) <0.03 k/uL <0.10 [facility] Nucleated RBC Auto (Bld) [#/ Vol]on 11-03-2024 Nucleated RBC (Bld) [#/Vol] Nucleated erythrocytes [#/volume] in Blood by Automated count <0.01 [facility] Nucleated RBC (Bld) [#/Vol] 10*3/uL <0.01 [facility] Nucleated erythrocytes [Pres ence] in Blood by Automated counton 11-03-2024 Nucleated RBC Auto Ql (Bld) Nucleated erythrocytes [Presence] in Blood by Automated count [facility] Nucleated RBC Auto Ql (Bld) 0.0 /100{WBC} [facility] Platelet mean volume Auto (B ld) [Entitic vol]on 11-03-2024 Platelet mean volume (Bld) [Entitic vol] Platelet mean volume [Entitic volume] in Blood by Automated count 9.0-12.7 [facility] Platelet mean volume (Bld) [Entitic vol] 11.0 fL 9.0-12.7 [facility] Platelets Auto (Bld) [#/Vol] on 11-03-2024 Platelets (Bld) [#/Vol] Platelets [#/volume] in Blood by Automated count 150-400 [facility] Platelets (Bld) [#/Vol] 281 10*3/uL 150-400 [facility] RBC Auto (Bld) [#/Vol]on RBC (Bld) [#/Vol] Erythrocytes [#/volu me] in Blood by Automated count 4.20-6.00 [facility] RBC (Bld) [#/Vol] 4.26 10*6/uL 4.20-6.00 [facility] MR TRANSFER OF OUTSIDE FILMS on 10-21-2024 MR TRANSFER OF OUTSIDE FILMS Outside images for comparison or treatment purposes, not interpreted by Radiologists. [facility] Study Interpretation of outs jeffrey studyon 10-21-2024 Outside images for comparison or treatment purposes, not interpreted by Radiologists. IMAGING X-ray reportOrdered By: Evie Eubanks on 10-10-2024 Study report [facility] [place] [address] XRay Report Signed Patient: Shantel Melendez MR#: [id number] : 1960 Acct:[id number] Age/Sex: 63 / M ADM Date: 5 Loc: XD Room: Type: [facility] Attending Dr: Solomon Narayanan PA-C [...] Eubanks M.D. 10/10/2024 3:02 PM Dictation Location: [facility]02 Transcribed By: MARISA 10/10/24 1502 Dictated By: Dorothy Eubanks MD 10/10/24 1455 Signed By: 10/10/24 150 [facility] Work Phone: XR cervical spine 2Von 10-10 XR cervical spine 2V [facility] [place] [address] [place] [address] XRay Report Signed Patient: Shantel Melendez MR#: [id number] : 1960 Acct:[id number] Age/Sex: 63 / M ADM Date: 10/10/24 Loc: XD Room: Type: [facility] Attending Dr: Solomon Narayanan PA-C [...] 1455 Signed By: 10/10/24 1502 Normal [facility] Alanine aminotransferase [En zymatic activity/volume] in Serum or PlasmaOrdered By: Griselda Hastings on 10-07-2024 ALT [Catalytic activity/Vol] Alanine aminotransferase [Enzymatic activity/volume] in Serum or Plasma Low 7-52 [facility] Albumin [Mass/volume] in Ser um or Plasma by Bromocresol green (BCG) dye binding methoOrdered By: Griselda Hastings on 10-07-2024 Albumin BCG dye [Mass/Vol] Albumin [Mass/volume] in Serum or Plasma by Bromocresol green (BCG) dye binding metho Low 3.5-5.7 [facility] Alkaline phosphatase [Enzyma tic activity/volume] in Serum or PlasmaOrdered By: Griselda Hastings on 10-07-2024 ALP [Catalytic activity/Vol] Alkaline phosphatase [Enzymatic activity/volume] in Serum or Plasma 34-104 [facility] Aspartate aminotransferase [ Enzymatic activity/volume] in Serum or PlasmaOrdered By: Griselda Hsatings on 10-07-2024 AST [Catalytic activity/Vol] Aspartate aminotransferase [Enzymatic activity/volume] in Serum or Plasma Low 13-39 [facility] Basophils Auto (Bld) [#/Vol] Ordered By: Griselda Hastings on 10-07-2024 Basophils (Bld) [#/Vol] Automated basophil count 0.0-0.2 [facility] Basophils/100 WBC Auto (Bld) Ordered By: Griselda Hastings on 10-07-2024 Basophils/100 WBC (Bld) Automated basophil % . [facility] Bilirubin.total [Mass/volume ] in Serum or PlasmaOrdered By: Griselda Hastings on 10-07-2024 Bilirubin [Mass/Vol] Bilirubin.total [Mass/volume] in Serum or Plasma 0.3-1.0 [facility] Calcium [Mass/volume] in Ser um or PlasmaOrdered By: Griselda Hastings on 10-07-2024 Calcium [Mass/Vol] Calcium [Mass/volume ] in Serum or Plasma 8.6-10.3 [facility] Carbon dioxide, total [Moles /volume] in Serum or PlasmaOrdered By: Griselda Hastings on 10-07-2024 CO2 [Moles/Vol] Carbon dioxide, tota l [Moles/volume] in Serum or Plasma 21.0-31.0 [facility] Chloride [Moles/volume] in S rica or PlasmaOrdered By: Griselda Hastings on 10-07-2024 Chloride [Moles/Vol] Chloride [Moles/vol ume] in Serum or Plasma 98-107 [facility] Cholesterol [Mass/volume] in Serum or PlasmaOrdered By: Griselda Hastings on 10-07-2024 Cholesterol [Mass/Vol] Cholesterol [Mass /volume] in Serum or Plasma High 140-200 [facility] Comment on above: Chol less than 200 m g/dl low riskChol 201-239 mg/dl borderline riskChol 240 mg/dl and greater high risk Cholesterol in HDL [Mass/vol ume] in Serum or PlasmaOrdered By: Griselda Hastings on 10-07-2024 Cholesterol in HDL [Mass/Vol] Serum or plasma high density lipoprotein (HDL) cholesterol measurement 23-92 [facility] Comment on above: HDL CHOL ATP-III CLA SSIFICATION Cardiovascular RiskHDL > or equal to 60 mg/dL LOWHDL < 40 mg/dL HIGH Cholesterol in LDL Calc [Mas s/Vol]Ordered By: Griselda Hastings on 10-07-2024 Cholesterol in LDL [Mass/Vol] Cholesterol in LDL [Mass/volume] in Serum or Plasma by calculation High 0-100 [facility] Comment on above: LDL ATP III CLASSIFI CATIONLDL less than 100 mg/dL OptimalLDL 100-129 mg/dL Near or above optimalLDL 130-159 mg/dL Borderline highLDL 160-189 mg/dL HighLDL greater than 189 mg/dL Very high Cholesterol in VLDL Calc [Ma ss/Vol]Ordered By: Griselda Hastings on 10-07-2024 Cholesterol in VLDL [Mass/Vol] Cholesterol in VLDL [Mass/volume] in Serum or Plasma by calculation [facility] Clostridioides difficile tox in B tcdB gene [Presence] in Stool by JER with probe deteOrdered By: Manisha Negron on 10-07-2024 C. difficile toxin B tcdB gene JER+probe Ql (Stl) Clostridioides difficile toxin B tcdB gene [Presence] in Stool by JER with probe dete Negative [facility] Comment on above: Testing performed by RT-PCR Clostridium Difficileon 09-17 Clostridium Difficile Negative Normal Negative [facility] Comment on above: Result Comment: Test ing performed by RT-PCR PERFORMED BY: [place] [address] PATHOLOGIST DIALYSIS NURSE RAKEL LAZARO M.D. Performed By: #### C DT #### [address] Complete Blood Count Auto Di ffon 10-07-2024 Basophils (Bld) [#/Vol] 0.0 10*3/uL Normal 0.0-0.2 [facility] Comment on above: Result Comment: PERF ORMED BY: [place] [address] PATHOLOGIST DIALYSIS NURSE RAKEL LAZARO M.D. Performed By: #### C BC, HEPATIC, BMP, LIPASE #### [address] Basophils/100 WBC (Bld) 0.8 % Normal . [facility] Comment on above: Performed By: #### C BC, HEPATIC, BMP, LIPASE #### [address] Eosinophils (Bld) [#/Vol] 0.0 10*3/uL Normal 0.0-0.45 [facility] Comment on above: Performed By: #### C BC, HEPATIC, BMP, LIPASE #### [address] Eosinophils/100 WBC (Bld) 0.8 % Normal . [facility] Comment on above: Performed By: #### C BC, HEPATIC, BMP, LIPASE #### [address] Erythrocyte distribution width (RBC) [Ratio] 13.7 % Normal 12.0-14.8 [facility] Comment on above: Performed By: #### C BC, HEPATIC, BMP, LIPASE #### [address] Hematocrit (Bld) [Volume fraction] 36.6 % Low 38.8-50.0 [facility] Comment on above: Performed By: #### C BC, HEPATIC, BMP, LIPASE #### [address] Hemoglobin (Bld) [Mass/Vol] 12.8 g/dL Low 13.0-17.0 [facility] Comment on above: Performed By: #### C BC, HEPATIC, BMP, LIPASE #### [address] Lymphocytes (Bld) [#/Vol] 1.7 10*3/uL Normal 1.00-4.8 [facility] Comment on above: Performed By: #### C BC, HEPATIC, BMP, LIPASE #### [address] Lymphocytes/100 WBC (Bld) 31.1 % Normal . [facility] Comment on above: Performed By: #### C BC, HEPATIC, BMP, LIPASE #### [address] MCH (RBC) [Entitic mass] 32.4 pg Normal 27.5-35.2 [facility] Comment on above: Performed By: #### C BC, HEPATIC, BMP, LIPASE #### [address] MCV (RBC) [Entitic vol] 92.8 fL Normal 83.5-101 [facility] Comment on above: Performed By: #### C BC, HEPATIC, BMP, LIPASE #### [address] Mean Corpuscular HGB Conc 34.9 g/dL Normal 32.5-35.6 [facility] Comment on above: Performed By: #### C BC, HEPATIC, BMP, LIPASE #### [address] Monocytes (Bld) [#/Vol] 0.3 10*3/uL Normal 0.0-0.8 [facility] Comment on above: Performed By: #### C BC, HEPATIC, BMP, LIPASE #### [address] Monocytes/100 WBC (Bld) 4.9 % Normal . [facility] Comment on above: Performed By: #### C BC, HEPATIC, BMP, LIPASE #### [address] Neutrophils (Bld) [#/Vol] 3.4 10*3/uL Normal 1.8-7.7 [facility] Comment on above: Performed By: #### C BC, HEPATIC, BMP, LIPASE #### [address] Neutrophils/100 WBC (Bld) 62.4 % Normal . [facility] Comment on above: Performed By: #### C BC, HEPATIC, BMP, LIPASE #### [address] NRBC% 0.0 /100{WBC} Normal 0-0.5 [facility] Comment on above: Performed By: #### C BC, HEPATIC, BMP, LIPASE #### [address] Platelet mean volume (Bld) [Entitic vol] 8.8 fL Normal 6.6-10.1 [facility] Comment on above: Performed By: #### C BC, HEPATIC, BMP, LIPASE #### [place] [address] [place] Platelets (Bld) [#/Vol] 343 10*3/uL Normal 150-450 [facility] Comment on above: Performed By: #### C BC, HEPATIC, BMP, LIPASE #### [place] [address] [place] RBC (Bld) [#/Vol] 3.94 10*6/uL Normal 3.90-5.60 [facility] Comment on above: Performed By: #### C BC, HEPATIC, BMP, LIPASE #### [address] WBC (Bld) [#/Vol] 5.5 10*3/uL Normal 4.1-10.5 [facility] Comment on above: Performed By: #### C BC, HEPATIC, BMP, LIPASE #### [address] Comprehensive Metabolic Pane chanel 10-07-2024 Albumin [Mass/Vol] 3.4 g/dL Low 3.5-5.7 [facility] Comment on above: Performed By: #### C BC, HEPATIC, BMP, LIPASE #### [address] Albumin/Globulin [Mass ratio] 1.8 {ratio} Normal [facility] Comment on above: Performed By: #### C BC, HEPATIC, BMP, LIPASE #### [address] ALP [Catalytic activity/Vol] 62 U/L Normal 34-104 [facility] Comment on above: Performed By: #### C BC, HEPATIC, BMP, LIPASE #### [address] ALT [Catalytic activity/Vol] 6 U/L Low 7-52 [facility] Comment on above: Performed By: #### C BC, HEPATIC, BMP, LIPASE #### [address] Anion gap [Moles/Vol] 9.7 mmol/L Normal 6.0-15.0 [facility] Comment on above: Performed By: #### C BC, HEPATIC, BMP, LIPASE #### [address] AST [Catalytic activity/Vol] 8 U/L Low 13-39 [facility] Comment on above: Performed By: #### C BC, HEPATIC, BMP, LIPASE #### [address] Bilirubin [Mass/Vol] 0.6 mg/dL Normal 0.3-1.0 [facility] Comment on above: Performed By: #### C BC, HEPATIC, BMP, LIPASE #### [facility] [address] Calcium [Mass/Vol] 9.3 mg/dL Normal 8.6-10.3 [facility] Comment on above: Performed By: #### C BC, HEPATIC, BMP, LIPASE #### [facility] [address] Chloride [Moles/Vol] 103 mmol/L Normal 98-107 [facility] Comment on above: Performed By: #### C BC, HEPATIC, BMP, LIPASE #### [address] CO2 [Moles/Vol] 29.1 mmol/L Normal 21.0-31.0 [facility] Comment on above: Performed By: #### C BC, HEPATIC, BMP, LIPASE #### [address] Creatinine [Mass/Vol] 0.74 mg/dL Normal 0.70-1.30 [facility] Comment on above: Performed By: #### C BC, HEPATIC, BMP, LIPASE #### [address] GFR/1.73 sq M.predicted MDRD (S/P/Bld) [Vol rate/Area] mL/min/{1.73_m2} Normal [facility] Comment on above: Performed By: #### C BC, HEPATIC, BMP, LIPASE #### [address] Globulin (S) [Mass/Vol] 1.9 g/dL Normal [facility] Comment on above: Performed By: #### C BC, HEPATIC, BMP, LIPASE #### [address] Glucose [Mass/Vol] 84 mg/dL Normal 70-100 [facility] Comment on above: Result Comment: [place] Glucose Reference Range is dependent on time and content of last meal. Glucose of more than 200 mg/dL in a nonstressed, ambulatory subject supports the diagnosis of Diabetes Mellitus. ADA recommended reference range Performed By: #### C BC, HEPATIC, BMP, LIPASE #### [facility] [address] Potassium [Moles/Vol] 4.8 mmol/L Normal 3.5-5.1 [facility] Comment on above: Performed By: #### C BC, HEPATIC, BMP, LIPASE #### [facility] [address] Protein [Mass/Vol] 5.3 g/dL Low 6.4-8.9 [facility] Comment on above: Performed By: #### C BC, HEPATIC, BMP, LIPASE #### [facility] [address] Sodium [Moles/Vol] 137 mmol/L Normal 136-145 [facility] Comment on above: Performed By: #### C BC, HEPATIC, BMP, LIPASE #### [facility] [address] Urea nitrogen [Mass/Vol] 7 mg/dL Normal 7-25 [facility] Comment on above: Performed By: #### C BC, HEPATIC, BMP, LIPASE #### [facility] [address] Creatinine [Mass/volume] in Serum or PlasmaOrdered By: Griselda Hastings on 10-07-2024 Creatinine [Mass/Vol] Creatinine [Mass/v olume] in Serum or Plasma 0.70-1.30 [facility] Eosinophils Auto (Bld) [#/Vo l]Ordered By: Griselda Hastings on 10-07-2024 Eosinophils (Bld) [#/Vol] Automated eosinophil count 0.0-0.45 [facility] Eosinophils/100 WBC Auto (Bl d)Ordered By: Griselda Hastings on 10-07-2024 Eosinophils/100 WBC (Bld) Automated eosinophil % . [facility] Erythrocyte distribution wid th Auto (RBC) [Ratio]Ordered By: Griselda Hastings on 10-07-2024 Erythrocyte distribution width (RBC) [Ratio] Erythrocyte distribution width [Ratio] by Automated count 12.0-14.8 [facility] Globulin Calc (S) [Mass/Vol] Ordered By: Griselda Hastings on 10-07-2024 Globulin (S) [Mass/Vol] Serum globulin measurement by calculation (mass/volume) [facility] Glucose [Mass/volume] in Ser um or PlasmaOrdered By: Griselda Hastings on 10-07-2024 Glucose [Mass/Vol] Glucose [Mass/volume ] in Serum or Plasma 70-100 [facility] Comment on above: ADA recommended refe rence rangeRandom Glucose Reference Range is dependent on time and content of last meal. Glucose of more than 200 mg/dL in a nonstressed, ambulatory subject supports the diagnosis of Diabetes Mellitus. Hematocrit Auto (Bld) [Volum e fraction]Ordered By: Griselda Hastings on 10-07-2024 Hematocrit (Bld) [Volume fraction] Hematocrit [Volume Fraction] of Blood by Automated count Low 38.8-50.0 [facility] Hemoglobin [Mass/volume] in BloodOrdered By: Griselda Hastings on 10-07-2024 Hemoglobin (Bld) [Mass/Vol] Hemoglobin [Mass/volume] in Blood Low 13.0-17.0 [facility] Leukocytes [#/volume] correc mone for nucleated erythrocytes in Blood by Automated counOrdered By: Griselda Hastings on 10-07-2024 WBC corrected for nucl RBC Auto (Bld) [#/Vol] Leukocytes [#/volume] corrected for nucleated erythrocytes in Blood by Automated coun 4.1-10.5 [facility] Lipid Panelon 10-07-2024 Cholesterol [Mass/Vol] 204 mg/dL High 140-200 Th [facility] Comment on above: Result Comment: Chol less than 200 mg/dl low risk Chol 201-239 mg/dl borderline risk Chol 240 mg/dl and greater high risk Performed By: #### C BC, HEPATIC, BMP, LIPASE #### [facility] [address] Cholesterol in HDL [Mass/Vol] 35 mg/dL Normal 23-92 [facility] Comment on above: Result Comment: HDL CHOL ATP-III CLASSIFICATION Cardiovascular Risk HDL > or equal to 60 mg/dL LOW HDL < 40 mg/dL HIGH Performed By: #### C BC, HEPATIC, BMP, LIPASE #### [address] Cholesterol.total/Chol esterol in HDL [Mass ratio] 5.8 {ratio} Normal <5.0 [facility] Comment on above: Performed By: #### C BC, HEPATIC, BMP, LIPASE #### [address] LDL Cholesterol,Calculated 145 mg/dL High 0-100 [facility] Comment on above: Result Comment: LDL ATP III CLASSIFICATION LDL less than 100 mg/dL Optimal LDL 100-129 mg/dL Near or above optimal LDL 130-159 mg/dL Borderline high LDL 160-189 mg/dL High LDL greater than 189 mg/dL Very high Performed By: #### C BC, HEPATIC, BMP, LIPASE #### [address] Triglyceride w/Reflex 118 mg/dL Normal 0-149 [facility] Comment on above: Result Comment: TRIG ATP III CLASSIFICATION TRIG less than 150 mg/dL Normal TRIG 150-199 mg/dL Borderline high TRIG 200-500 mg/dL High TRIG greater than 500 mg/dL Very high Standard traceable to the Center for Disease Conrtrol and Prevention (CDC) test method. Performed By: #### C BC, HEPATIC, BMP, LIPASE #### [address] VLDL CHOLESTEROL 23 mg/dL Normal [facility] Comment on above: Performed By: #### C BC, HEPATIC, BMP, LIPASE #### [address] Lymphocytes Auto (Bld) [#/Vo l]Ordered By: Griselda Hastings on 10-07-2024 Lymphocytes (Bld) [#/Vol] Lymphocytes [#/volume] in Blood by Automated count 1.00-4.8 [facility] Lymphocytes/100 WBC Auto (Bl d)Ordered By: Griselda Hastings on 10-07-2024 Lymphocytes/100 WBC (Bld) Lymphocytes/100 leukocytes in Blood by Automated count . [facility] MCH Auto (RBC) [Entitic mass ]Ordered By: Griselda Hastings on 10-07-2024 MCH (RBC) [Entitic mass] MCH [Entitic mass] by Automated count 27.5-35.2 [facility] MCHC Auto (RBC) [Mass/Vol]Or dered By: Griselda Hastings on 10-07-2024 MCHC (RBC) [Mass/Vol] MCHC [Mass/volume] by Automated count 32.5-35.6 [facility] MCV Auto (RBC) [Entitic vol] Ordered By: Griselda Hastings on 10-07-2024 MCV (RBC) [Entitic vol] MCV [Entitic volume] by Automated count 83.5-101 [facility] Monocytes Auto (Bld) [#/Vol] Ordered By: Griselda Hastings on 10-07-2024 Monocytes (Bld) [#/Vol] Automated blood monocyte count 0.0-0.8 [facility] Monocytes/100 WBC Auto (Bld) Ordered By: Griselda Hastings on 10-07-2024 Monocytes/100 WBC (Bld) Automated monocyte % . [facility] Neutrophils Auto (Bld) [#/Vo l]Ordered By: Griselda Hastings on 10-07-2024 Neutrophils (Bld) [#/Vol] Neutrophils [#/volume] in Blood by Automated count 1.8-7.7 [facility] Neutrophils/100 WBC Auto (Bl d)Ordered By: Griselda Hastings on 10-07-2024 Neutrophils/100 WBC (Bld) Automated neutrophil % . [facility] No Panel InformationOrdered By: Griselda Hastings on 10-07-2024 Estimated GFR (CKD-EPI) > 60.0 mL/Min [facility] Creatinine Clearance (Chem N/A [facility] Nucleated erythrocytes [Pres ence] in Blood by Automated countOrdered By: Griselda Hastings on 10-07-2024 Nucleated RBC Auto Ql (Bld) Nucleated erythrocytes [Presence] in Blood by Automated count 0-0.5 [facility] PSA Screen (Yearly Only)on 0 10-07-2024 PSA Screen (Yearly Only) 0.670 ng/mL Normal 0.000-4.00 0 [facility] Comment on above: Result Comment: Dustyi al tumor marker results determined by assays using different manufacturers or methods may not be comparable. [facility] senior software qa engineer and method: THELMA 6connectEL DXI, CHEMILUMINESCENT IMMUNOASSAY. PERFORMED BY: [place] [address] PATHOLOGIST DIALYSIS NURSE RAKEL LAZARO M.D. Performed By: #### C BC, HEPATIC, BMP, LIPASE #### [address] Platelet mean volume Auto (B ld) [Entitic vol]Ordered By: Griselda Hastings on 10-07-2024 Platelet mean volume (Bld) [Entitic vol] Platelet mean volume [Entitic volume] in Blood by Automated count 6.6-10.1 [facility] Platelets Auto (Bld) [#/Vol] Ordered By: Griselda Hastings on 10-07-2024 Platelets (Bld) [#/Vol] Platelets [#/volume] in Blood by Automated count 150-450 [facility] Potassium [Moles/volume] in Serum or PlasmaOrdered By: Griselda Hastings on 10-07-2024 Potassium [Moles/Vol] Potassium [Moles/v olume] in Serum or Plasma 3.5-5.1 [facility] Prostate specific Ag [Mass/v olume] in Serum or PlasmaOrdered By: Griselda Hastings on 10-07-2024 Prostate specific Ag [Mass/Vol] Prostate specific Ag [Mass/volume] in Serum or Plasma 0.000-4.00 0 [facility] Comment on above: Serial tumor marker results determined by assays using different manufacturers or methods may not be comparable.[facility] senior software qa engineer and method:[employer] DXI, CHEMILUMINESCENT IMMUNOASSAY. Protein [Mass/volume] in Ser um or PlasmaOrdered By: Griselda Hastings on 10-07-2024 Protein [Mass/Vol] Protein [Mass/volume ] in Serum or Plasma Low 6.4-8.9 [facility] RBC Auto (Bld) [#/Vol]Ordere d By: Griselda Hastings on 10-07-2024 RBC (Bld) [#/Vol] Erythrocytes [#/volu me] in Blood by Automated count 3.90-5.60 [facility] Serum or plasma albumin/glob ulin mass ratioOrdered By: Griselda Hastings on 10-07-2024 Albumin/Globulin [Mass ratio] Serum or plasma albumin/globulin mass ratio [facility] Serum or plasma anion gap de terminationOrdered By: Griselda Hastings on 10-07-2024 Anion gap [Moles/Vol] Serum or plasma an ion gap determination 6.0-15.0 [facility] Serum or plasma total choles terol/high density lipoprotein (HDL) cholesterol mass ratOrdered By: Griselda Hastings on 10-07-2024 Cholesterol.total/Chol esterol in HDL [Mass ratio] Serum or plasma total cholesterol/high density lipoprotein (HDL) cholesterol mass rat <5.0 [facility] Sodium [Moles/volume] in Ser um or PlasmaOrdered By: Griselda Hastings on 10-07-2024 Sodium [Moles/Vol] Sodium [Moles/volume ] in Serum or Plasma 136-145 [facility] Thyroid Stimulating Hormoneo n 10-07-2024 TSH Qn 1.03 m[IU]/L Normal 0.45-5.33 [facility] Comment on above: Result Comment: PERF ORMED BY: [place] [address] PATHOLOGIST DIALYSIS NURSE RAKEL LAZARO M.D. Performed By: #### C BC, HEPATIC, BMP, LIPASE #### [address] Thyrotropin [Units/volume] i n Serum or PlasmaOrdered By: Griselda Hastings on 10-07-2024 TSH Qn Thyrotropin [Units/volume] in Serum or Plasma 0.45-5.33 [facility] Triglyceride [Mass/volume] i n Serum or PlasmaOrdered By: Griselda Hastings on 10-07-2024 Triglyceride [Mass/Vol] Triglyceride [Mass/volume] in Serum or Plasma 0-149 [facility] Comment on above: TRIG ATP III CLASSIF ICATIONTRIG less than 150 mg/dL NormalTRIG 150-199 mg/dL Borderline highTRIG 200-500 mg/dL High TRIG greater than 500 mg/dL Very highStandard traceable to the Center for Disease Conrtrol and Prevention (CDC) test method. Urea nitrogen [Mass/volume] in Serum or PlasmaOrdered By: Griselda Hastings on 10-07-2024 Urea nitrogen [Mass/Vol] Urea nitrogen [Mass/volume] in Serum or Plasma 01-09 [facility] WBC Auto (Bld) [#/Vol]Ordere d By: Griselda Hastings on 10-07-2024 WBC (Bld) [#/Vol] Leukocytes [#/volume ] in Blood by Automated count 4.1-10.5 [facility] Alanine aminotransferase [En zymatic activity/volume] in Serum or PlasmaOrdered By: PROVIDER TEMP on 10-06-2024 ALT [Catalytic activity/Vol] Alanine aminotransferase [Enzymatic activity/volume] in Serum or Plasma [facility] Albumin [Mass/volume] in Ser um or Plasma by Bromocresol green (BCG) dye binding methoOrdered By: PROVIDER TEMP on 10-06-2024 Albumin BCG dye [Mass/Vol] Albumin [Mass/volume] in Serum or Plasma by Bromocresol green (BCG) dye binding metho 3.5-5.7 [facility] Alkaline phosphatase [Enzyma tic activity/volume] in Serum or PlasmaOrdered By: PROVIDER TEMP on 10-06-2024 ALP [Catalytic activity/Vol] Alkaline phosphatase [Enzymatic activity/volume] in Serum or Plasma 34-104 [facility] Appearance of UrineOrdered B y: Manisha Negron on 10-06-2024 Appearance (U) Urine appearance Clear [facility] Aspartate aminotransferase [ Enzymatic activity/volume] in Serum or PlasmaOrdered By: PROVIDER TEMP on 10-06-2024 AST [Catalytic activity/Vol] Aspartate aminotransferase [Enzymatic activity/volume] in Serum or Plasma Low 13-39 [facility] Bacteria [Presence] in Urine by AutomatedOrdered By: Manisha Negron on 10-06-2024 Bacteria Auto Ql (U) Bacteria [Presence] in Urine by Automated None Seen [facility] Basic Metabolic Panelon 09-17 Anion gap [Moles/Vol] 8.5 mmol/L Normal 6.0-15.0 [facility] Comment on above: Performed By: #### C BC, HEPATIC, BMP, LIPASE #### [facility] [address] [place] [address] Calcium [Mass/Vol] 9.5 mg/dL Normal 8.6-10.3 [facility] Comment on above: Performed By: #### C BC, HEPATIC, BMP, LIPASE #### [address] Chloride [Moles/Vol] 104 mmol/L Normal 98-107 [facility] Comment on above: Performed By: #### C BC, HEPATIC, BMP, LIPASE #### [address] CO2 [Moles/Vol] 28.3 mmol/L Normal 21.0-31.0 [facility] Comment on above: Performed By: #### C BC, HEPATIC, BMP, LIPASE #### [address] Creatinine [Mass/Vol] 0.82 mg/dL Normal 0.70-1.30 [facility] Comment on above: Performed By: #### C BC, HEPATIC, BMP, LIPASE #### [place] [address] [place] Creatinine Clr Calc Pharmacy 91.52 Normal [facility] Comment on above: Performed By: #### C BC, HEPATIC, BMP, LIPASE #### [place] [address] [place] GFR/1.73 sq M.predicted MDRD (S/P/Bld) [Vol rate/Area] mL/min/{1.73_m2} Normal [facility] Comment on above: Performed By: #### C BC, HEPATIC, BMP, LIPASE #### [address] Glucose [Mass/Vol] 86 mg/dL Normal 70-100 [facility] Comment on above: Result Comment: [place] Glucose Reference Range is dependent on time and content of last meal. Glucose of more than 200 mg/dL in a nonstressed, ambulatory subject supports the diagnosis of Diabetes Mellitus. ADA recommended reference range Performed By: #### C BC, HEPATIC, BMP, LIPASE #### [place] [address] [place] Potassium [Moles/Vol] 4.8 mmol/L Normal 3.5-5.1 [facility] Comment on above: Performed By: #### C BC, HEPATIC, BMP, LIPASE #### [facility] [address] Sodium [Moles/Vol] 136 mmol/L Normal 136-145 [facility] Comment on above: Performed By: #### C BC, HEPATIC, BMP, LIPASE #### [facility] [address] Urea nitrogen [Mass/Vol] 9 mg/dL Normal 7-25 [facility] Comment on above: Performed By: #### C BC, HEPATIC, BMP, LIPASE #### [facility] [address] Basophils Auto (Bld) [#/Vol] Ordered By: PROVIDER TEMP on 10-06-2024 Basophils (Bld) [#/Vol] Automated basophil count 0.0-0.2 [facility] Basophils/100 WBC Auto (Bld) Ordered By: PROVIDER TEMP on 10-06-2024 Basophils/100 WBC (Bld) Automated basophil % . [facility] Bilirubin Test strip Ql (U)O rdered By: Manisha Negron on 10-06-2024 Bilirubin Ql (U) Bilirubin.total [Presence] in Urine by Test strip Negative [facility] Bilirubin.direct [Mass/volum e] in Serum or PlasmaOrdered By: PROVIDER TEMP on 10-06-2024 Bilirubin.direct [Mass/Vol] Bilirubin.direct [Mass/volume] in Serum or Plasma 0.03-0.18 [facility] Bilirubin.total [Mass/volume ] in Serum or PlasmaOrdered By: PROVIDER TEMP on 10-06-2024 Bilirubin [Mass/Vol] Bilirubin.total [Mass/volume] in Serum or Plasma 0.3-1.0 [facility] CT abdomen pelvis w conon CT abdomen pelvis w con [facility] [place] [address] CT Scan Report Signed Patient: Shantel Melendez MR#: [id number] : 1960 Acct:[id number] Age/Sex: 63 / M ADM Date: 10/06/24 Loc: ER Room: Type: [facility] ER Attending Dr: Copies to: Manisha [...] Dorothy Eubanks M.D.10/06/2024 4:08 PM Dictation Location: [place] [address] Transcribed By: [facility] 10/06/24 1608 Dictated By: Dorothy Eubanks MD 10/06/24 1556 Signed By: 10/06/24 1608 Normal [facility] CT soft tissue neck w conon 10-06-2024 CT soft tissue neck w con [facility] [place] [address] [place] [address] CT Scan Report Signed Patient: Shantel Melendez MR#: [id number] : 1960 Acct:[id number] Age/Sex: 63 / M ADM Date: 10/06/24 Loc: ER Room: Type: [facility] ER Attending Dr: Copies to: Manisha [...] Dorothy Eubanks M.D.10/06/2024 3:56 PM Dictation Location: [place] [address] Transcribed By: [facility] 10/06/24 1556 Dictated By: Dorothy Eubanks MD 10/06/241550 Signed By: 10/06/24 155 Normal [facility] Calcium [Mass/volume] in Ser um or PlasmaOrdered By: PROVIDER TEMP on 10-06-2024 Calcium [Mass/Vol] Calcium [Mass/volume ] in Serum or Plasma 8.6-10.3 [facility] Carbon dioxide, total [Moles /volume] in Serum or PlasmaOrdered By: PROVIDER TEMP on 10-06-2024 CO2 [Moles/Vol] Carbon dioxide, tota l [Moles/volume] in Serum or Plasma 21.0-31.0 [facility] Chloride [Moles/volume] in [place] or PlasmaOrdered By: PROVIDER TEMP on 10-06-2024 Chloride [Moles/Vol] Chloride [Moles/vol ume] in Serum or Plasma 98-107 [facility] Color Auto (U)Ordered By: Braeden Negron on 10-06-2024 Color (U) Color of Urine by Auto Yellow Fi [facility] Complete Blood Count Auto Di ffon 10-06-2024 Basophils (Bld) [#/Vol] 0.1 10*3/uL Normal 0.0-0.2 [facility] Comment on above: Result Comment: PERF ORMED BY: [place] [address] PATHOLOGIST DIALYSIS NURSE RAKEL LAZARO M.D. Performed By: #### C BC, HEPATIC, BMP, LIPASE #### [address] Basophils/100 WBC (Bld) 1.1 % Normal . [facility] Comment on above: Performed By: #### C BC, HEPATIC, BMP, LIPASE #### [facility] [address] Eosinophils (Bld) [#/Vol] 0.1 10*3/uL Normal 0.0-0.45 [facility] Comment on above: Performed By: #### C BC, HEPATIC, BMP, LIPASE #### [address] Eosinophils/100 WBC (Bld) 0.9 % Normal . [facility] Comment on above: Performed By: #### C BC, HEPATIC, BMP, LIPASE #### [address] Erythrocyte distribution width (RBC) [Ratio] 13.7 % Normal 12.0-14.8 [facility] Comment on above: Performed By: #### C BC, HEPATIC, BMP, LIPASE #### [address] Hematocrit (Bld) [Volume fraction] 37.0 % Low 38.8-50.0 [facility] Comment on above: Performed By: #### C BC, HEPATIC, BMP, LIPASE #### [address] Hemoglobin (Bld) [Mass/Vol] 12.8 g/dL Low 13.0-17.0 [facility] Comment on above: Performed By: #### C BC, HEPATIC, BMP, LIPASE #### [address] Lymphocytes (Bld) [#/Vol] 2.0 10*3/uL Normal 1.00-4.8 [facility] Comment on above: Performed By: #### C BC, HEPATIC, BMP, LIPASE #### [address] Lymphocytes/100 WBC (Bld) 28.2 % Normal . [facility] Comment on above: Performed By: #### C BC, HEPATIC, BMP, LIPASE #### [address] MCH (RBC) [Entitic mass] 32.0 pg Normal 27.5-35.2 [facility] Comment on above: Performed By: #### C BC, HEPATIC, BMP, LIPASE #### [address] MCV (RBC) [Entitic vol] 92.6 fL Normal 83.5-101 [facility] Comment on above: Performed By: #### C BC, HEPATIC, BMP, LIPASE #### [address] Mean Corpuscular HGB Conc 34.6 g/dL Normal 32.5-35.6 [facility] Comment on above: Performed By: #### C BC, HEPATIC, BMP, LIPASE #### [address] Monocytes (Bld) [#/Vol] 0.4 10*3/uL Normal 0.0-0.8 [facility] Comment on above: Performed By: #### C BC, HEPATIC, BMP, LIPASE #### [address] Monocytes/100 WBC (Bld) 17.04 % Normal 0.00-20.00 [facility] Comment on above: Performed By: #### C BC, HEPATIC, BMP, LIPASE #### [address] Monocytes/100 WBC (Bld) 5.4 % Normal . [facility] Comment on above: Performed By: #### C BC, HEPATIC, BMP, LIPASE #### [address] Neutrophils (Bld) [#/Vol] 4.7 10*3/uL Normal 1.8-7.7 [facility] Comment on above: Performed By: #### C BC, HEPATIC, BMP, LIPASE #### [address] Neutrophils/100 WBC (Bld) 64.4 % Normal . [facility] Comment on above: Performed By: #### C BC, HEPATIC, BMP, LIPASE #### [address] NRBC% 0.1 /100{WBC} Normal 0-0.5 [facility] Comment on above: Performed By: #### C BC, HEPATIC, BMP, LIPASE #### [address] Platelet mean volume (Bld) [Entitic vol] 8.4 fL Normal 6.6-10.1 [facility] Comment on above: Performed By: #### C BC, HEPATIC, BMP, LIPASE #### [address] Platelets (Bld) [#/Vol] 357 10*3/uL Normal 150-450 [facility] Comment on above: Performed By: #### C BC, HEPATIC, BMP, LIPASE #### [address] RBC (Bld) [#/Vol] 3.99 10*6/uL Normal 3.90-5.60 [facility] Comment on above: Performed By: #### C BC, HEPATIC, BMP, LIPASE #### [address] WBC (Bld) [#/Vol] 7.2 10*3/uL Normal 4.1-10.5 [facility] Comment on above: Performed By: #### C BC, HEPATIC, BMP, LIPASE #### [address] Creatinine [Mass/volume] in Serum or PlasmaOrdered By: PROVIDER TEMP on 10-06-2024 Creatinine [Mass/Vol] Creatinine [Mass/v olume] in Serum or Plasma 0.70-1.30 [facility] Dipstick and Microscopicon 0 10-06-2024 Appearance (U) Clear Normal Clear [facility] Comment on above: Order Comment: Name Collection Type:: Clean-Voided Midstream Performed By: #### C BC, HEPATIC, BMP, LIPASE #### [address] Bacteria,Urine None Seen Normal None Seen [facility] Comment on above: Order Comment: Name Collection Type:: Clean-Voided Midstream Performed By: #### C BC, HEPATIC, BMP, LIPASE #### [address] Bilirubin,Urine Negative Normal Negative [facility] Comment on above: Order Comment: Name Collection Type:: Clean-Voided Midstream Performed By: #### C BC, HEPATIC, BMP, LIPASE #### [address] Color (U) Yellow Normal Yellow [facility] Comment on above: Order Comment: Name Collection Type:: Clean-Voided Midstream Performed By: #### C BC, HEPATIC, BMP, LIPASE #### [address] Glucose Ql (U) Normal Normal Normal [facility] Comment on above: Order Comment: Name Collection Type:: Clean-Voided Midstream Performed By: #### C BC, HEPATIC, BMP, LIPASE #### [address] Hyaline Casts,Urine None Normal 0-8 [facility] Comment on above: Order Comment: Name Collection Type:: Clean-Voided Midstream Performed By: #### C BC, HEPATIC, BMP, LIPASE #### [address] Ketones Ql (U) Negative Normal Negative [facility] Comment on above: Order Comment: Name Collection Type:: Clean-Voided Midstream Performed By: #### C BC, HEPATIC, BMP, LIPASE #### [address] Leukocyte esterase Test strip Ql (U) Negative Normal Negative [facility] Comment on above: Order Comment: Name Collection Type:: Clean-Voided Midstream Performed By: #### C BC, HEPATIC, BMP, LIPASE #### [address] Mucus,Urine Rare Normal [facility] Comment on above: Order Comment: Name Collection Type:: Clean-Voided Midstream Result Comment: PERF ORMED BY: [place] [address] PATHOLOGIST DIALYSIS NURSE RAKEL LAZARO M.D. Performed By: #### C BC, HEPATIC, BMP, LIPASE #### [place] [address] [place] Nitrite,Urine Negative Normal Negative [facility] Comment on above: Order Comment: Name Collection Type:: Clean-Voided Midstream Performed By: #### C BC, HEPATIC, BMP, LIPASE #### [address] Occult Blood,Urine Trace High Negative [facility] Comment on above: Order Comment: Name Collection Type:: Clean-Voided Midstream Result Comment: PERF ORMED BY: [place] [address] PATHOLOGIST DIALYSIS NURSE RAKEL LAZARO M.D. Performed By: #### C BC, HEPATIC, BMP, LIPASE #### [address] pH (U) 5.5 [pH] Normal 5.0-9.0 [facility] Comment on above: Order Comment: Name Collection Type:: Clean-Voided Midstream Performed By: #### C BC, HEPATIC, BMP, LIPASE #### [address] Protein,Urine Negative Normal Negative [facility] Comment on above: Order Comment: Name Collection Type:: Clean-Voided Midstream Performed By: #### C BC, HEPATIC, BMP, LIPASE #### [address] RBC,Urine 1-2 Normal 0-4 [facility] Comment on above: Order Comment: Name Collection Type:: Clean-Voided Midstream Performed By: #### C BC, HEPATIC, BMP, LIPASE #### [address] Specificy [place],Urine >1.050 High 1.001-1.03 0 [facility] Comment on above: Order Comment: Name Collection Type:: Clean-Voided Midstream Performed By: #### C BC, HEPATIC, BMP, LIPASE #### [facility] [address] Squamous Epithelial Cell,Urine 1-2 Normal 0-2 [facility] Comment on above: Order Comment: Name Collection Type:: Clean-Voided Midstream Performed By: #### C BC, HEPATIC, BMP, LIPASE #### [facility] [address] Urobilinogen,Urine Normal Normal Normal [facility] Comment on above: Order Comment: Name Collection Type:: Clean-Voided Midstream Performed By: #### C BC, HEPATIC, BMP, LIPASE #### [facility] [address] WBC,Urine 1-2 Normal 0-4 [facility] Comment on above: Order Comment: Name Collection Type:: Clean-Voided Midstream Performed By: #### C BC, HEPATIC, BMP, LIPASE #### [address] ECG 12 lead ECGon 10-06-2024 ECG 12 lead ECG [facility] Main [place] [address] [place] [address] Electrocardiograph Report Signed Patient: Shantel Melendez MR#: [id number] : 1960 Acct:[id number] Age/Sex: 63 / M ADM Date: 10/06/24 Loc: ER Room: Type: [facility] ER Attending Dr: Ordering Provider: [...] now present Confirmed by Duke Kaufman DO ([id number]) on 10/06/2024 7:36:01 PM Referred By: Electronically Signed By: Duke Kaufman DO Transcribed By: MUS Signed By Duke Kaufman DO 193 Normal [facility] Eosinophils Auto (Bld) [#/Vo l]Ordered By: PROVIDER TEMP on 10-06-2024 Eosinophils (Bld) [#/Vol] Automated eosinophil count 0.0-0.45 [facility] Eosinophils/100 WBC Auto (Bl d)Ordered By: PROVIDER TEMP on 10-06-2024 Eosinophils/100 WBC (Bld) Automated eosinophil % . [facility] Epithelial cells.squamous [# /area] in Urine sediment by Automated countOrdered By: Manisha Negron on 10-06-2024 Epithelial cells.squamous Auto (Urine sed) [#/Area] Epithelial cells.squamous [#/area] in Urine sediment by Automated count 0-2 [facility] Erythrocyte distribution wid th Auto (RBC) [Ratio]Ordered By: PROVIDER TEMP on 10-06-2024 Erythrocyte distribution width (RBC) [Ratio] Erythrocyte distribution width [Ratio] by Automated count 12.0-14.8 [facility] Erythrocytes [#/area] in Uri ne sediment by Automated countOrdered By: Manisha Negron on 10-06-2024 RBC Auto (Urine sed) [#/Area] Erythrocytes [#/area] in Urine sediment by Automated count 0-4 [facility] Globulin Calc (S) [Mass/Vol] Ordered By: PROVIDER TEMP on 10-06-2024 Globulin (S) [Mass/Vol] Serum globulin measurement by calculation (mass/volume) [facility] Glucose [Mass/volume] in Ser um or PlasmaOrdered By: PROVIDER TEMP on 10-06-2024 Glucose [Mass/Vol] Glucose [Mass/volume ] in Serum or Plasma 70-100 [facility] Comment on above: ADA recommended refe [...] [Mass/volume] in Urine by Test strip Normal [facility] Hematocrit Auto (Bld) [Volum e fraction]Ordered By: PROVIDER TEMP on 10-06-2024 Hematocrit (Bld) [Volume fraction] Hematocrit [Volume Fraction] of Blood by Automated count Low 38.8-50.0 [facility] Hemoglobin Test strip Ql (U) Ordered By: Manisha Negron on 10-06-2024 Hemoglobin Ql (U) Hemoglobin [Presence ] in Urine by Test strip High Negative [facility] Hemoglobin [Mass/volume] in BloodOrdered By: PROVIDER TEMP on 10-06-2024 Hemoglobin (Bld) [Mass/Vol] Hemoglobin [Mass/volume] in Blood Low 13.0-17.0 [facility] Hepatic Panelon 10-06-2024 Albumin [Mass/Vol] 3.6 g/dL Normal 3.5-5.7 [facility] Comment on above: Performed By: #### C BC, HEPATIC, BMP, LIPASE #### [address] Albumin/Globulin [Mass ratio] 1.4 {ratio} Normal [facility] Comment on above: Performed By: #### C BC, HEPATIC, BMP, LIPASE #### [address] ALP [Catalytic activity/Vol] 63 U/L Normal 34-104 [facility] Comment on above: Performed By: #### C BC, HEPATIC, BMP, LIPASE #### [address] ALT [Catalytic activity/Vol] 7 U/L Normal 7-52 [facility] Comment on above: Performed By: #### C BC, HEPATIC, BMP, LIPASE #### [address] AST [Catalytic activity/Vol] 8 U/L Low 13-39 [facility] Comment on above: Performed By: #### C BC, HEPATIC, BMP, LIPASE #### [place] [address] [place] Bilirubin [Mass/Vol] 0.6 mg/dL Normal 0.3-1.0 [facility] Comment on above: Performed By: #### C BC, HEPATIC, BMP, LIPASE #### [facility] [address] Bilirubin,Indirect 0.5 mg/dL Normal [facility] Comment on above: Performed By: #### C BC, HEPATIC, BMP, LIPASE #### [facility] [address] Bilirubin.indirect [Mass/Vol] 0.10 mg/dL Normal 0.03-0.18 [facility] Comment on above: Performed By: #### C BC, HEPATIC, BMP, LIPASE #### [facility] [address] Globulin (S) [Mass/Vol] 2.5 g/dL Normal [facility] Comment on above: Performed By: #### C BC, HEPATIC, BMP, LIPASE #### [address] Protein [Mass/Vol] 6.1 g/dL Low 6.4-8.9 [facility] Comment on above: Performed By: #### C BC, HEPATIC, BMP, LIPASE #### [address] Hyaline casts [#/area] in Ur ine sediment by Automated countOrdered By: Manisha Negron on 10-06-2024 Hyaline casts Auto (Urine sed) [#/Area] Hyaline casts [#/area] in Urine sediment by Automated count 0-8 [facility] Ketones Test strip Ql (U)Ord ered By: Manisha Negron on 10-06-2024 Ketones Ql (U) Ketones [Presence] i n Urine by Test strip Negative [facility] Leukocyte esterase [Presence ] in Urine by Test stripOrdered By: Manisha Negron on 10-06-2024 Leukocyte esterase Test strip Ql (U) Leukocyte esterase [Presence] in Urine by Test strip Negative [facility] Leukocytes [#/area] in Urine sediment by Automated countOrdered By: Manisha Negron on 10-06-2024 WBC Auto (Urine sed) [#/Area] Leukocytes [#/area] in Urine sediment by Automated count 0-4 [facility] Leukocytes [#/volume] correc mone for nucleated erythrocytes in Blood by Automated counOrdered By: PROVIDER TEMP on 10-06-2024 WBC corrected for nucl RBC Auto (Bld) [#/Vol] Leukocytes [#/volume] corrected for nucleated erythrocytes in Blood by Automated coun 4.1-10.5 [facility] Lipaseon 10-06-2024 Lipase [Catalytic activity/Vol] 11.0 U/L Normal 11.0-82.0 [facility] Comment on above: Result Comment: PERF ORMED BY: [place] [address] PATHOLOGIST DIALYSIS NURSE RAKEL LAZARO M.D. Performed By: #### C BC, HEPATIC, BMP, LIPASE #### [address] Lipase [Enzymatic activity/v olume] in Serum or PlasmaOrdered By: PROVIDER TEMP on 10-06-2024 Lipase [Catalytic activity/Vol] Lipase [Enzymatic activity/volume] in Serum or Plasma 11.0-82.0 [facility] Lymphocytes Auto (Bld) [#/Vo l]Ordered By: PROVIDER TEMP on 10-06-2024 Lymphocytes (Bld) [#/Vol] Lymphocytes [#/volume] in Blood by Automated count 1.00-4.8 [facility] Lymphocytes/100 WBC Auto (Bl d)Ordered By: PROVIDER TEMP on 10-06-2024 Lymphocytes/100 WBC (Bld) Lymphocytes/100 leukocytes in Blood by Automated count . [facility] MCH Auto (RBC) [Entitic mass ]Ordered By: PROVIDER TEMP on 10-06-2024 MCH (RBC) [Entitic mass] MCH [Entitic mass] by Automated count 27.5-35.2 [facility] MCHC Auto (RBC) [Mass/Vol]Or dered By: PROVIDER TEMP on 10-06-2024 MCHC (RBC) [Mass/Vol] MCHC [Mass/volume] by Automated count 32.5-35.6 [facility] MCV Auto (RBC) [Entitic vol] Ordered By: PROVIDER TEMP on 10-06-2024 MCV (RBC) [Entitic vol] MCV [Entitic volume] by Automated count 83.5-101 [facility] Monocyte distribution width [Entitic volume] in Blood by AutomatedOrdered By: PROVIDER TEMP on 10-06-2024 Monocyte distribution width Auto (Bld) [Entitic vol] Monocyte distribution width [Entitic volume] in Blood by Automated 0.00-20.00 [facility] Monocytes Auto (Bld) [#/Vol] Ordered By: PROVIDER TEMP on 10-06-2024 Monocytes (Bld) [#/Vol] Automated blood monocyte count 0.0-0.8 [facility] Monocytes/100 WBC Auto (Bld) Ordered By: PROVIDER TEMP on 10-06-2024 Monocytes/100 WBC (Bld) Automated monocyte % . [facility] Mucus [Presence] in Urine by AutomatedOrdered By: Manisha Negron on 10-06-2024 Mucus Auto Ql (U) Mucus [Presence] in Urine by Automated [facility] Neutrophils Auto (Bld) [#/Vo l]Ordered By: PROVIDER TEMP on 10-06-2024 Neutrophils (Bld) [#/Vol] Neutrophils [#/volume] in Blood by Automated count 1.8-7.7 [facility] Neutrophils/100 WBC Auto (Bl d)Ordered By: PROVIDER TEMP on 10-06-2024 Neutrophils/100 WBC (Bld) Automated neutrophil % . [facility] Nitrite Test strip Ql (U)Ord ered By: Manisha Negron on 10-06-2024 Nitrite Ql (U) Nitrite [Presence] i n Urine by Test strip Negative [facility] No Panel InformationOrdered By: PROVIDER TEMP on 10-06-2024 Estimated GFR (CKD-EPI) > 60.0 mL/Min [facility] Creatinine Clearance (Chem 91.52 [facility] Nucleated erythrocytes [Pres ence] in Blood by Automated countOrdered By: PROVIDER TEMP on 10-06-2024 Nucleated RBC Auto Ql (Bld) Nucleated erythrocytes [Presence] in Blood by Automated count 0-0.5 [facility] Platelet mean volume Auto (B ld) [Entitic vol]Ordered By: PROVIDER TEMP on 10-06-2024 Platelet mean volume (Bld) [Entitic vol] Platelet mean volume [Entitic volume] in Blood by Automated count 6.6-10.1 [facility] Platelets Auto (Bld) [#/Vol] Ordered By: PROVIDER TEMP on 10-06-2024 Platelets (Bld) [#/Vol] Platelets [#/volume] in Blood by Automated count 150-450 [facility] Potassium [Moles/volume] in Serum or PlasmaOrdered By: PROVIDER TEMP on 10-06-2024 Potassium [Moles/Vol] Potassium [Moles/v olume] in Serum or Plasma 3.5-5.1 [facility] Protein Test strip (U) [Mass /Vol]Ordered By: Manisha Negron on 10-06-2024 Protein (U) [Mass/Vol] Protein [Mass/vol ume] in Urine by Test strip Negative [facility] Protein [Mass/volume] in Ser um or PlasmaOrdered By: PROVIDER TEMP on 10-06-2024 Protein [Mass/Vol] Protein [Mass/volume ] in Serum or Plasma Low 6.4-8.9 [facility] RBC Auto (Bld) [#/Vol]Ordere d By: PROVIDER TEMP on 10-06-2024 RBC (Bld) [#/Vol] Erythrocytes [#/volu me] in Blood by Automated count 3.90-5.60 [facility] Serum or plasma albumin/glob ulin mass ratioOrdered By: PROVIDER TEMP on 10-06-2024 Albumin/Globulin [Mass ratio] Serum or plasma albumin/globulin mass ratio [facility] Serum or plasma anion gap de terminationOrdered By: PROVIDER TEMP on 10-06-2024 Anion gap [Moles/Vol] Serum or plasma an ion gap determination 6.0-15.0 [facility] Serum or plasma non-glucuron idated bilirubin measurement (mass/volume)Ordered By: PROVIDER TEMP on 10-06-2024 Bilirubin.indirect [Mass/Vol] Serum or plasma non-glucuronidated bilirubin measurement (mass/volume) [facility] Sodium [Moles/volume] in Ser um or PlasmaOrdered By: PROVIDER TEMP on 10-06-2024 Sodium [Moles/Vol] Sodium [Moles/volume ] in Serum or Plasma 136-145 [facility] Specific gravity Test strip (U) [Rel density]Ordered By: Manisha Negron on 10-06-2024 Specific gravity (U) [Rel density] Specific gravity of Urine by Test strip High 1.001-1.03 0 [facility] Urea nitrogen [Mass/volume] in Serum or PlasmaOrdered By: PROVIDER TEMP on 10-06-2024 Urea nitrogen [Mass/Vol] Urea nitrogen [Mass/volume] in Serum or Plasma 7-25 [facility] Urobilinogen Test strip (U) [Mass/Vol]Ordered By: Manisha Negron on 10-06-2024 Urobilinogen (U) [Mass/Vol] Urobilinogen [Mass/volume] in Urine by Test strip Normal [facility] WBC Auto (Bld) [#/Vol]Ordere d By: PROVIDER TEMP on 10-06-2024 WBC (Bld) [#/Vol] Leukocytes [#/volume ] in Blood by Automated count 4.1-10.5 [facility] pH Test strip (U)Ordered By: Manisha Negron on 10-06-2024 pH (U) pH of Urine by Test strip 5.0-9.0 [facility] B-Type Natriuretic Peptideon 09-20-2024 Natriuretic peptide B (Bld) [Mass/Vol] 43.0 pg/mL Normal 5-100 [facility] Comment on above: Result Comment: PERF ORMED BY: [place] [address] PATHOLOGIST DIALYSIS NURSE RAKEL LAZARO M.D. Performed By: #### H S TROP #### [address] Basic Metabolic Panelon Anion gap [Moles/Vol] 11.2 mmol/L Normal 6.0-15.0 [facility] Comment on above: Performed By: #### C BC, BMP, HS TROP, BNP #### [place] [address] [place] Calcium [Mass/Vol] 9.3 mg/dL Normal 8.6-10.3 [facility] Comment on above: Performed By: #### C BC, BMP, HS TROP, BNP #### [facility] [address] [place] [address] [place] Chloride [Moles/Vol] 100 mmol/L Normal 98-107 [facility] [facility] Comment on above: Performed By: #### C BC, BMP, HS TROP, BNP #### [place] [address] [place] CO2 [Moles/Vol] 26.0 mmol/L Normal 21.0-31.0 [facility] Comment on above: Performed By: #### C BC, BMP, HS TROP, BNP #### [place] [address] [place] Creatinine [Mass/Vol] 0.91 mg/dL Normal 0.70-1.30 [facility] Comment on above: Performed By: #### C BC, BMP, HS TROP, BNP #### [place] [address] [place] Creatinine Clr Calc Pharmacy 82.47 Normal [facility] Comment on above: Result Comment: PERF ORMED BY: [place] [address] PATHOLOGIST DIALYSIS NURSE RAKEL LAZARO M.D. Performed By: #### C BC, BMP, HS TROP, BNP #### [place] [address] [place] GFR/1.73 sq M.predicted MDRD (S/P/Bld) [Vol rate/Area] mL/min/{1.73_m2} Normal [facility] Comment on above: Performed By: #### C BC, BMP, HS TROP, BNP #### [place] [address] [place] Glucose [Mass/Vol] 100 mg/dL Normal 70-100 [facility] Comment on above: Result Comment: [place] Glucose Reference Range is dependent on time and content of last meal. Glucose of more than 200 mg/dL in a nonstressed, ambulatory subject supports the diagnosis of Diabetes Mellitus. ADA recommended reference range Performed By: #### C BC, BMP, HS TROP, BNP #### [address] Potassium [Moles/Vol] 4.2 mmol/L Normal 3.5-5.1 [facility] Comment on above: Performed By: #### C BC, BMP, HS TROP, BNP #### [address] Sodium [Moles/Vol] 133 mmol/L Low 136-145 [facility] Comment on above: Performed By: #### C BC, BMP, HS TROP, BNP #### [address] Urea nitrogen [Mass/Vol] 18 mg/dL Normal 7-25 [facility] Comment on above: Performed By: #### C BC, BMP, HS TROP, BNP #### [place] [address] [place] Basophils Auto (Bld) [#/Vol] Ordered By: Daisy Paul on 09-20-2024 Basophils (Bld) [#/Vol] Automated basophil count 0.0-0.2 [facility] Basophils/100 WBC Auto (Bld) Ordered By: Daisy Paul on 09-20-2024 Basophils/100 WBC (Bld) Automated basophil % . [facility] BioFire Not Detectedon 09-20 BioFire Not Detected Not detected Normal Not Detecte [facility] Comment on above: Result Comment: This is a duplicate RP2.1 COVID (PCR) result to be used for statistical tracking purpose only. PERFORMED BY: [place] [address] PATHOLOGIST DIALYSIS NURSE RAKEL LAZARO M.D. Performed By: #### H S TROP #### [address] COVID-19 Detected/Not Detect edOrdered By: Daisy Paul on 09-20-2024 SARS-CoV-2 (COVID-19) RNA JER+non-probe Ql (Nph) Not detected Not Detecte [facility] Comment on above: This is a duplicate RP2.1 COVID (PCR) result to be used for statistical tracking purpose only. Calcium [Mass/volume] in Ser um or PlasmaOrdered By: Daisy Paul on 09-20-2024 Calcium [Mass/Vol] Calcium [Mass/volume ] in Serum or Plasma 8.6-10.3 [facility] Carbon dioxide, total [Moles /volume] in Serum or PlasmaOrdered By: Daisy Paul on 09-20-2024 CO2 [Moles/Vol] Carbon dioxide, tota l [Moles/volume] in Serum or Plasma 21.0-31.0 [facility] Chloride [Moles/volume] in [place] r[place] or PlasmaOrdered By: Daisy Paul on 09-20-2024 Chloride [Moles/Vol] Chloride [Moles/vol ume] in Serum or Plasma 98-107 [facility] Complete Blood Count Auto Di ffon 09-20-2024 Basophils (Bld) [#/Vol] 0.0 10*3/uL Normal 0.0-0.2 [facility] Comment on above: Result Comment: PERF ORMED BY: [place] [address] PATHOLOGIST DIALYSIS NURSE RAKEL LAZARO M.D. Performed By: #### C BC, BMP, HS TROP, BNP #### [place] [address] [place] Basophils/100 WBC (Bld) 0.5 % Normal . [facility] Comment on above: Performed By: #### C BC, BMP, HS TROP, BNP #### [place] [address] [place] Eosinophils (Bld) [#/Vol] 0.0 10*3/uL Normal 0.0-0.45 [facility] Comment on above: Performed By: #### C BC, BMP, HS TROP, BNP #### [place] [address] [place] Eosinophils/100 WBC (Bld) 0.1 % Normal . [facility] Comment on above: Performed By: #### C BC, BMP, HS TROP, BNP #### [address] Erythrocyte distribution width (RBC) [Ratio] 13.9 % Normal 12.0-14.8 [facility] Comment on above: Performed By: #### C BC, BMP, HS TROP, BNP #### [address] Hematocrit (Bld) [Volume fraction] 41.1 % Normal 38.8-50.0 [facility] Comment on above: Performed By: #### C BC, BMP, HS TROP, BNP #### [address] Hemoglobin (Bld) [Mass/Vol] 14.1 g/dL Normal 13.0-17.0 [facility] Comment on above: Performed By: #### C BC, BMP, HS TROP, BNP #### [address] Lymphocytes (Bld) [#/Vol] 1.1 10*3/uL Normal 1.00-4.8 [facility] Comment on above: Performed By: #### C BC, BMP, HS TROP, BNP #### [address] Lymphocytes/100 WBC (Bld) 11.5 % Normal . [facility] Comment on above: Performed By: #### C BC, BMP, HS TROP, BNP #### [address] MCH (RBC) [Entitic mass] 32.1 pg Normal 27.5-35.2 [facility] Comment on above: Performed By: #### C BC, BMP, HS TROP, BNP #### [address] MCV (RBC) [Entitic vol] 93.6 fL Normal 83.5-101 [facility] Comment on above: Performed By: #### C BC, BMP, HS TROP, BNP #### [address] Mean Corpuscular HGB Conc 34.3 g/dL Normal 32.5-35.6 [facility] Comment on above: Performed By: #### C BC, BMP, HS TROP, BNP #### [place] [address] [place] Monocytes (Bld) [#/Vol] 0.5 10*3/uL Normal 0.0-0.8 [facility] Comment on above: Performed By: #### C BC, BMP, HS TROP, BNP #### [place] [address] [place] Monocytes/100 WBC (Bld) 23.57 % High 0.00-20.00 [facility] Comment on above: Result Comment: For adults in ED, MDW > 20.0 may be associated with a higher risk of sepsis during the first 12 hrs of hospital admission Performed By: #### C BC, BMP, HS TROP, BNP #### [place] [address] [place] Monocytes/100 WBC (Bld) 5.4 % Normal . [facility] Comment on above: Performed By: #### C BC, BMP, HS TROP, BNP #### [place] [address] [place] Neutrophils (Bld) [#/Vol] 8.1 10*3/uL High 1.8-7.7 [facility] Comment on above: Performed By: #### C BC, BMP, HS TROP, BNP #### [place] [address] [place] Neutrophils/100 WBC (Bld) 82.5 % Normal . [facility] Comment on above: Performed By: #### C BC, BMP, HS TROP, BNP #### [place] [address] [place] NRBC% 0.1 /100{WBC} Normal 0-0.5 [facility] Comment on above: Performed By: #### C BC, BMP, HS TROP, BNP #### [facility] [address] [place] [address] [place] Platelet mean volume (Bld) [Entitic vol] 8.9 fL Normal 6.6-10.1 [facility] Comment on above: Performed By: #### C BC, BMP, HS TROP, BNP #### [facility] [address] [place] [id number] [place] Platelets (Bld) [#/Vol] 215 10*3/uL Normal 150-450 [facility] Comment on above: Performed By: #### C BC, BMP, HS TROP, BNP #### [facility] [address] [place] [address] [place] RBC (Bld) [#/Vol] 4.39 10*6/uL Normal 3.90-5.60 [facility] Comment on above: Performed By: #### C BC, BMP, HS TROP, BNP #### [facility] [address] [place] [address] [place] WBC (Bld) [#/Vol] 9.8 10*3/uL Normal 4.1-10.5 [facility] Comment on above: Performed By: #### C BC, BMP, HS TROP, BNP #### [facility] [address] Creatinine [Mass/volume] in Serum or PlasmaOrdered By: Daisy Paul on 09-20-2024 Creatinine [Mass/Vol] Creatinine [Mass/v olume] in Serum or Plasma 0.70-1.30 [facility] ECG 12 lead ECGon 09-20-2024 ECG 12 lead ECG [facility] Main [place] [address] [place] [address] Electrocardiograph Report Signed Patient: Shantel Melendez MR#: [id number] : 1960 Acct:[id number] Age/Sex: 63 / M ADM Date: 09/20/24 Loc: ER Room: Type: [facility] ER Attending Dr: Ordering Provider: [...] wave abnormality Confirmed by Daisy Paul MD ([id number]) on 09/20/2024 7:46:03 PM Referred By: Electronically Signed By: Daisy Paul MD Transcribed By: MUS Signed By Dasiy Paul MD 11/09 Normal [facility] Eosinophils Auto (Bld) [#/Vo l]Ordered By: Daisy Paul on 09-20-2024 Eosinophils (Bld) [#/Vol] Automated eosinophil count 0.0-0.45 [facility] Eosinophils/100 WBC Auto (Bl d)Ordered By: Daisy Paul on 09-20-2024 Eosinophils/100 WBC (Bld) Automated eosinophil % . [facility] Erythrocyte distribution wid th Auto (RBC) [Ratio]Ordered By: Daisy Paul on 09-20-2024 Erythrocyte distribution width (RBC) [Ratio] Erythrocyte distribution width [Ratio] by Automated count 12.0-14.8 [facility] Glucose [Mass/volume] in Ser um or PlasmaOrdered By: Daisy Paul on 09-20-2024 Glucose [Mass/Vol] Glucose [Mass/volume ] in Serum or Plasma 70-100 [facility] Comment on above: ADA recommended refe rence rangeRandom Glucose Reference Range is dependent on time and content of last meal. Glucose of more than 200 mg/dL in a nonstressed, ambulatory subject supports the diagnosis of Diabetes Mellitus. Hematocrit Auto (Bld) [Volum e fraction]Ordered By: Daisy Paul on 09-20-2024 Hematocrit (Bld) [Volume fraction] Hematocrit [Volume Fraction] of Blood by Automated count 38.8-50.0 [facility] Hemoglobin [Mass/volume] in BloodOrdered By: Daisy Paul on 09-20-2024 Hemoglobin (Bld) [Mass/Vol] Hemoglobin [Mass/volume] in Blood 13.0-17.0 [facility] Leukocytes [#/volume] correc mone for nucleated erythrocytes in Blood by Automated counOrdered By: Daisy Paul on 09-20-2024 WBC corrected for nucl RBC Auto (Bld) [#/Vol] Leukocytes [#/volume] corrected for nucleated erythrocytes in Blood by Automated coun 4.1-10.5 [facility] Lymphocytes Auto (Bld) [#/Vo l]Ordered By: Daisy Paul on 09-20-2024 Lymphocytes (Bld) [#/Vol] Lymphocytes [#/volume] in Blood by Automated count 1.00-4.8 [facility] Lymphocytes/100 WBC Auto (Bl d)Ordered By: Daisy Paul on 09-20-2024 Lymphocytes/100 WBC (Bld) Lymphocytes/100 leukocytes in Blood by Automated count . [facility] MCH Auto (RBC) [Entitic mass ]Ordered By: Daisy Paul on 09-20-2024 MCH (RBC) [Entitic mass] MCH [Entitic mass] by Automated count 27.5-35.2 [facility] MCHC Auto (RBC) [Mass/Vol]Or dered By: Daisy Paul on 09-20-2024 MCHC (RBC) [Mass/Vol] MCHC [Mass/volume] by Automated count 32.5-35.6 [facility] MCV Auto (RBC) [Entitic vol] Ordered By: Daisy Paul on 09-20-2024 MCV (RBC) [Entitic vol] MCV [Entitic volume] by Automated count 83.5-101 [facility] Monocyte distribution width [Entitic volume] in Blood by AutomatedOrdered By: Daisy Paul on 09-20-2024 Monocyte distribution width Auto (Bld) [Entitic vol] Monocyte distribution width [Entitic volume] in Blood by Automated High 0.00-20.00 [facility] Comment on above: For adults in ED, MD W > 20.0 may be associated with a higher risk of sepsis during the first 12 hrs of hospital admission Monocytes Auto (Bld) [#/Vol] Ordered By: Daisy Paul on 09-20-2024 Monocytes (Bld) [#/Vol] Automated blood monocyte count 0.0-0.8 [facility] Monocytes/100 WBC Auto (Bld) Ordered By: Daisy Paul on 09-20-2024 Monocytes/100 WBC (Bld) Automated monocyte % . [facility] Natriuretic peptide B [Mass/ Vol]Ordered By: Daisy Paul on 09-20-2024 Natriuretic peptide B (Bld) [Mass/Vol] BNP ser/plas 5-100 [facility] Neutrophils Auto (Bld) [#/Vo l]Ordered By: Daisy Paul on 09-20-2024 Neutrophils (Bld) [#/Vol] Neutrophils [#/volume] in Blood by Automated count High 1.8-7.7 [facility] Neutrophils/100 WBC Auto (Bl d)Ordered By: Daisy Paul on 09-20-2024 Neutrophils/100 WBC (Bld) Automated neutrophil % . [facility] No Panel InformationOrdered By: Daisy Paul on 09-20-2024 Estimated GFR (CKD-EPI) > 60.0 mL/Min [facility] Creatinine Clearance (Chem 82.47 [facility] Nucleated erythrocytes [Pres ence] in Blood by Automated countOrdered By: Daisy Paul on 09-20-2024 Nucleated RBC Auto Ql (Bld) Nucleated erythrocytes [Presence] in Blood by Automated count 0-0.5 [facility] Platelet mean volume Auto (B ld) [Entitic vol]Ordered By: Daisy Paul on 09-20-2024 Platelet mean volume (Bld) [Entitic vol] Platelet mean volume [Entitic volume] in Blood by Automated count 6.6-10.1 [facility] Platelets Auto (Bld) [#/Vol] Ordered By: Daisy Paul on 09-20-2024 Platelets (Bld) [#/Vol] Platelets [#/volume] in Blood by Automated count 150-450 [facility] Potassium [Moles/volume] in Serum or PlasmaOrdered By: Daisy Paul on 09-20-2024 Potassium [Moles/Vol] Potassium [Moles/v olume] in Serum or Plasma 3.5-5.1 [facility] RBC Auto (Bld) [#/Vol]Ordere d By: Daisy Paul on 09-20-2024 RBC (Bld) [#/Vol] Erythrocytes [#/volu me] in Blood by Automated count 3.90-5.60 [facility] Respiratory (Upper) Panel, P CRon 09-20-2024 [...] A H3 Blank Space ---- PERFORMED BY: [place] [address] PATHOLOGIST DIALYSIS NURSE RAKEL LAZARO M.D. Normal [facility] Comment on above: Performed By: #### H S TROP #### [facility] [address] Respiratory pathogens DNA an d RNA panel - Nasopharynx by JER with non-probe detectionOrdered By: Daisy Paul on 09-20-2024 Respiratory pathogens DNA and RNA panel JER+non-probe (Nph) Respiratory pathogens DNA and RNA panel - Nasopharynx by JER with non-probe detection [facility] Serum or plasma anion gap de terminationOrdered By: Daisy Paul on 09-20-2024 Anion gap [Moles/Vol] Serum or plasma an ion gap determination 6.0-15.0 [facility] Sodium [Moles/volume] in Ser um or PlasmaOrdered By: Daisy Paul on 09-20-2024 Sodium [Moles/Vol] Sodium [Moles/volume ] in Serum or Plasma Low 136-145 [facility] Troponin I High Sensitivityo n 09-20-2024 Troponin I High Sensitivity 8 Normal 0-20 [facility] Comment on above: Result Comment: The Troponin units of report have been changed to meet the Chest Pain Accreditation requirement, element EC5.M1l2. Troponin units are changed from pg/ml to ng/L. Also, the decimal is removed and results are in whole numbers. PERFORMED BY: [place] [address] PATHOLOGIST DIALYSIS NURSE RAKEL LAZARO M.D. Performed By: #### H S TROP #### [address] Troponin I High Sensitivity 8 Normal 0-20 [facility] Comment on above: Result Comment: The Troponin units of report have been changed to meet the Chest Pain Accreditation requirement, element EC5.M1l2. Troponin units are changed from pg/ml to ng/L. Also, the decimal is removed and results are in whole numbers. PERFORMED BY: [place] [address] PATHOLOGIST DIALYSIS NURSE RAKEL LAZARO M.D. Performed By: #### C BC, BMP, HS TROP, BNP #### [address] Troponin I.cardiac [Mass/vol ume] in Serum or Plasma by Detection limit <= 0.01 ng/Ordered By: Daisy Paul on 09-20-2024 Troponin I.cardiac DL <= 0.01 ng/mL [Mass/Vol] Troponin I.cardiac [Mass/volume] in Serum or Plasma by Detection limit <= 0.01 ng/ 0-20 [facility] Comment on above: The Troponin units [...] nitrogen [Mass/volume] in Serum or Plasma 01-09 [facility] WBC Auto (Bld) [#/Vol]Ordere d By: Daisy Paul on 09-20-2024 WBC (Bld) [#/Vol] Leukocytes [#/volume ] in Blood by Automated count 4.1-10.5 [facility] X-ray reportOrdered By: Rex [place] on 09-20-2024 Study report [facility] Main [address] [address] XRay Report Signed Patient: Shantel Melendez MR#: [id number] : 1960 Acct:[id number] Age/Sex: 63 / M ADM Date: 5 Loc: ER Room: Type: [facility] ER Attending Dr: Copies to: Daisy [...] Gee [place]ins M.D.09/20/2024 12:47 PM Dictation Location: [facility]--29 Transcribed By: MARISA 09/20/241246 Dictated By: Gee [place] MD 09/20/241244 Signed By: 09/20/241246 [facility] Work Phone: XR chest 2V*on 09-20-2024 XR chest 2V* [facility] Main [address] [address] XRay Report Signed Patient: Shantel Melendez MR#: [id number] : 1960 Acct:[id number] Age/Sex: 63 / M ADM Date: 09/20/24 Loc: ER Room: Type: [facility] Attending Dr: Copies to: Daisy Paul MD [...] Gee Hutchins M.D.09/20/2024 12:47 PM Dictation Location: [place] [address] Transcribed By: [facility] 09/20/24 1247 Dictated By: Gee [place] MD 09/20/24 1245 Signed By: 09/20/24 1247 Normal [facility] US ankle/arm indiceson 09-16 US ankle/arm indices [facility] [address] [place] [address] Ultrasound Report Signed Patient: Shantel Melendez MR#: [id number] : 1960 Acct:[id number] Age/Sex: 63 / M ADM Date: 09/11/24 Loc: [facility]: Ruddy Harvey MD Ordering Provider: [...] Filipe Hess M.D.09/16/2024 2:46 PM Dictation Location: [place] [address] Tech: Agueda Helm Transcribed By: MARISA 09/16/241445 Dictated By: Filipe Hess MD 09/16/241444 Signed By: 09/16/241445 Normal [facility] X-ray reportOrdered By: Yehuda Pozo on 06-24-2024 Study report [facility] [place] [place] [address] XRay Report Signed Patient: Shantel Melendez MR#: [id number] : 1960 Acct:[id number] Age/Sex: 63 / M ADM Date: 5 Loc: XD Room: Type: [facility] Attending Dr: Solomon Narayanan PA-C [...] Pozo Jr., D.O.06/24/2024 8:08 PM Dictation Location: [facility]-18 Transcribed By: MARISA 06/24/242007 Dictated By: Yung Pozo Jr, DO 06/24/242005 Signed By: 06/24/242007 [facility] XR cervical spine LAT/FLX/EX Ton 06-24-2024 XR cervical spine LAT/FLX/EXT [facility] Main [address] [address] XRay Report Signed Patient: Shantel Melendez MR#: [id number] : 1960 Acct:[id number] Age/Sex: 63 / M ADM Date: 06/24/24 Loc: XD Room: Type: [facility] CLI Attending Dr: Solomon Narayanan PA-C [...] Pozo Jr., D.O.06/24/2024 8:08 PM Dictation Location: [place] [address] Transcribed By: [facility] 06/24/242007 Dictated By: Yung Pozo Jr, DO 06/24/242005 Signed By: 06/24/242007 Normal [facility] Basic metabolic 2000 panelon 04-10-2024 Anion gap [Moles/Vol] 14 mmol/L 10 - 2 0 mmol/L [facility] Calcium [Mass/Vol] 9 mg/dL 8.6 - 10. 6 mg/dL [facility] Chloride [Moles/Vol] 103 mmol/L 98 - 10 7 mmol/L [facility] CO2 [Moles/Vol] 26 mmol/L 21 - 32 mmol/L [facility] Creatinine [Mass/Vol] 0.86 mg/dL 0.50 - 1.30 mg/dL [facility] eGFR - PINF [facility] Comment on above: Calculations of sandra mated GFR are performed using the 2020 CKD-EPI Study Refit equation without the race variable for the IDMS-Traceable creatinine methods. https://jasn.asnjournals.org/content//ASN.13913 35865 Glucose [Mass/Vol] 159 mg/dL High 74 - 99 mg/dL [facility] Interpretation and review of laboratory results Abnormal [facility] Potassium [Moles/Vol] 4.5 mmol/L 3.5 - 5.3 mmol/L [facility] Sodium [Moles/Vol] 138 mmol/L 136 - 145 mmol/L [facility] Urea nitrogen [Mass/Vol] 14 mg/dL 6 - 23 mg/dL [facility] Anion gap [Moles/Vol] 14 mmol/L Normal 10-[address] [facility] Comment on above: Performed By: #### 5 7021-8 #### TITUS SCHMOTZER L ([id number]) [facility] ([facility]) [id number] [place] [address] Calcium [Mass/Vol] 9.0 mg/dL Normal 8.6-10.6 [facility] Comment on above: Performed By: #### 5 7021-8 #### TITUS SCHMOTZER L ([id number]) [facility] ([facility]) [id number] [place] [address] Chloride [Moles/Vol] 103 mmol/L Normal 98-107 [facility] Comment on above: Performed By: #### 5 7021-8 #### TITUS SCHMOTZER L ([id number]) [facility] ([facility]) [id number] [place] [address] CO2 [Moles/Vol] 26 mmol/L Normal 21-32 [facility] Comment on above: Performed By: #### 5 7021-8 #### TITUS PAYANMOTZER L ([id number]) [facility] ([facility]) [id number] [place] [address] Creatinine [Mass/Vol] 0.86 mg/dL Normal 0.50-1.[address] [facility] Comment on above: Performed By: #### 5 7021-8 #### TITUS Mercado ([id number]) [facility] ([facility]) [id number] [place] [address] GFR/1.73 sq M.predicted MDRD (S/P/Bld) [Vol rate/Area] mL/min/{1.73_m2} Normal >60 [facility] Comment on above: Result Comment: Calc ulations of estimated GFR are performed using the 2020 CKD-EPI Study Refit equation without the race variable for the IDMS-Traceable creatinine methods. https://jasn.asnjournals.org/content/early//ASN.71996 95379 Performed By: #### 5 7021-8 #### TITUS Mercado ([id number]) [facility] ([facility]) [address] [place] [address] Glucose [Mass/Vol] 159 mg/dL High 74-99 [facility] Comment on above: Performed By: #### 5 7021-8 #### TITUS Mercado ([id number]) [facility] ([facility]) [address] [place] [address] Potassium [Moles/Vol] 4.5 mmol/L Normal 3.5-5.[address] [facility] Comment on above: Performed By: #### 5 7021-8 #### TITUS SOLORZANO L ([id number]) [facility] ([facility]) [id number] [place] [address] Sodium [Moles/Vol] 138 mmol/L Normal 136-145 [facility] Comment on above: Performed By: #### 5 7021-8 #### TITUS SOLORZANO L ([id number]) [facility] ([facility]) [address] [place] [address] Urea nitrogen [Mass/Vol] 14 mg/dL Normal 6-23 [facility] Comment on above: Performed By: #### 5 7021-8 #### TITUS Mercado ([id number]) [facility] ([facility]) [id number] [place] [address] CBC panel Auto (Bld)on 04-10 Erythrocyte distribution width (RBC) [Ratio] 13.3 % 11.5 - 14.5 % [facility] Hematocrit (Bld) [Volume fraction] 38 % Low 41.0 - 52.0 % [facility] Hemoglobin (Bld) [Mass/Vol] 12.9 g/dL Low 13.5 - 17.5 g/dL [facility] Interpretation and review of laboratory results Abnormal [facility] MCH (RBC) [Entitic mass] 31.9 pg 26.0 - 34.0 pg [facility] MCHC (RBC) [Mass/Vol] 33.9 g/dL 32.0 - 36.0 g/dL [facility] MCV (RBC) [Entitic vol] 94 fL 80 - 100 fL [facility] Nucleated RBC/100 WBC (Bld) [Ratio] 0 % [facility] Platelets (Bld) [#/Vol] 221 10*3/uL [facility] RBC (Bld) [#/Vol] 4.05 10*6/uL Low [facility] WBC (Bld) [#/Vol] 9.6 10*3/uL [facility] Erythrocyte distribution width (RBC) [Ratio] 13.3 % Normal 11.5-14.5 [facility] Comment on above: Performed By: #### 5 7021-8 #### TITUS Mercado ([id number]) [facility] ([facility]) [id number] [place] [address] 70144 Hematocrit (Bld) [Volume fraction] 38.0 % Low 41.0-52.0 [facility] Comment on above: Performed By: #### 5 7021-8 #### TITUS Mercado ([id number]) [facility] ([facility]) [address] [place] [address] 09863 Hemoglobin (Bld) [Mass/Vol] 12.9 g/dL Low 13.5-17.5 [facility] Comment on above: Performed By: #### 5 7021-8 #### TITUS Mercado ([id number]) [facility] ([facility]) [address] [place] [address] 15644 MCH (RBC) [Entitic mass] 31.9 pg Normal 26.0-34.0 [facility] Comment on above: Performed By: #### 5 7021-8 #### TITUS Mercdao ([id number]) [facility] ([facility]) [address] [place] [address] 07381 MCHC (RBC) [Mass/Vol] 33.9 g/dL Normal 32.0-36.[address] [facility] Comment on above: Performed By: #### 5 7021-8 #### TITUS Mercado ([id number]) [facility] ([facility]) [address] [place] [address] 11682 MCV (RBC) [Entitic vol] 94 fL Normal 80-100 [facility] Comment on above: Performed By: #### 5 7021-8 #### TITUS Mercado ([id number]) [facility] ([facility]) [address] [place] [address] 98617 Nucleated RBC/100 WBC (Bld) [Ratio] 0.0 /100 WBCs Normal 0.0-0.0 [facility] Comment on above: Performed By: #### 5 7021-8 #### TITUS Mercado ([id number]) [facility] ([facility]) [address] [place] [address] 07902 Platelets (Bld) [#/Vol] 221 x10*3/uL Normal 150-450 [facility] Comment on above: Performed By: #### 5 7021-8 #### TITUS Mercado ([id number]) [facility] ([facility]) [address] [place] [address] 41180 RBC (Bld) [#/Vol] 4.05 x10*6/uL Low 4.50-5.90 [facility] Comment on above: Performed By: #### 5 7021-8 #### TITUS Mercado ([id number]) [facility] ([facility]) [address] [place] [address] WBC (Bld) [#/Vol] 9.6 x10*3/uL Normal 4.4-11.3 [facility] Comment on above: Performed By: #### 5 7021-8 #### TITUS SOLORZANO L ([id number]) [facility] ([facility]) [address] [place] [address] XR CERVICAL SPINE 2-3 VIEWSo n 04-10-2024 XR CERVICAL SPINE 2-3 VIEWS Interpreted By: Shubham Eubanks, STUDY: Cervical spine dated 04/10/2024. INDICATION: Signs/Symptoms:Post surgery COMPARISON: None. ACCESSION NUMBER(S): [id number] ORDERING CLINICIAN: DORETHA HARRIS TECHNIQUE: Two views [...] Shubham Eubanks 04/10/2024 10:05 AM Dictation workstation: [id number] [facility] Comment on above: Order Comment: Pleas e have patient upright XR Cervical spine 2 or 3 Vie wson 04-10-2024 Surgical and degener ative change as above without osseous injury evident. MACRO: None Signed by: Shubham Eubanks 04/10/2024 10:05 AM Dictation workstation: [id number] MMODAL Interpreted By: Shubham Curran, STUDY: Cervical spine dated 04/10/2024. INDICATION: Signs/Symptoms:Post surgery COMPARISON: None. ACCESSION NUMBER(S): [id number] ORDERING CLINICIAN: DORETHA HARRIS TECHNIQUE: Two views [...] INDICATION: Signs/Symptoms:Post surgery COMPARISON: None. ACCESSION NUMBER(S): [id number] ORDERING CLINICIAN: DORETHA HARRIS TECHNIQUE: Two views [...] Shubham Eubanks 04/10/2024 10:05 AM Dictation workstation: [id number] [facility] Work Phone: Radiology Study observation (narrative) [facility] Work Phone: XR Cervical spine 2 or 3 Vie wsOrdered By: Shubham Eubanks on 04-10-2024 [facility] Work Phone: Blood type and Indirect anti body screen panel (Bld)on 04-09-2024 ABO group Nom (Bld) A [facility] Blood group antibody screen Ql Negative [facility] D Ag Ql (Bld) Positive [facility] ABO group Nom (Bld) A Normal [facility] Comment on above: Order Comment: As ne eded for scheduled for aortic, liver, cardiac, or thoracic surgery OR hgb<7.5mg/dl and no active type and screen. Performed By: #### 5 7021-8 #### TITUS Mercado ([id number]) [facility] ([facility]) [address] [place] [address] 00056 Blood group antibody screen Ql Negative [facility] Comment on above: Order Comment: As ne eded for scheduled for aortic, liver, cardiac, or thoracic surgery OR hgb<7.5mg/dl and no active type and screen. Performed By: #### 5 7021-8 #### TITUS Mercado ([id number]) [facility] ([facility]) [address] [place] [address] 06075 D Ag Ql (Bld) Positive [facility] Comment on above: Order Comment: As ne eded for scheduled for aortic, liver, cardiac, or thoracic surgery OR hgb<7.5mg/dl and no active type and screen. Performed By: #### 5 7021-8 #### TITUS Mercado ([id number]) [facility] ([facility]) [address] [place], [place] [id number] [place] FLUORO IMAGES NO CHARGEon 04-09-2024 FL FLUORO IMAGES NO CHARGE These images are not reportable by radiology and will not be interpreted by Radiologists. Normal [facility] Gas and Carbon monoxide and Electrolytes panel (BldA)on 04-09-2024 Anion gap 4 (BldA) [Moles/Vol] 8 Low [facility] Base excess Calc (Bld) [Moles/Vol] -1.9000 mmol/L -2.0 - 3.0 mmol/L [facility] Calcium.ionized (BldA) [Moles/Vol] 1.24 mmol/L 1.10 - 1.33 mmol/L [facility] Chloride (BldA) [Moles/Vol] 104 mmol/L 98 - 107 mmol/L [facility] CO2 (Bld) [Partial pressure] 46 mm[Hg] High [facility] Glucose [Mass/Vol] 132 mg/dL High 74 - 99 mg/dL [facility] HCO3 (Bld) [Moles/Vol] 24.3 mmol/L 22.0 - 26.0 mmol/L [facility] Hematocrit Est (Bld) [Volume fraction] 39 % Low 41.0 - 52.0 % [facility] Hemoglobin (Bld) [Mass/Vol] 12.9 g/dL Low 13.5 - 17.5 g/dL [facility] Inhaled oxygen concentration 44 % [facility] Interpretation and review of laboratory results Abnormal [facility] Lactate (BldA) [Moles/Vol] 0.7 mmol/L 0.4 - 2.0 mmol/L [facility] Oxygen (Bld) [Partial pressure] 156 mm[Hg] High [facility] Oxyhemoglobin (BldA) [Mass fraction] 95 % 94.0 - 98.0 % [facility] pH (Bld) 7.33 [pH] Low 7.38 - 7.42 pH [facility] Potassium (BldA) [Moles/Vol] 4.5 mmol/L 3.5 - 5.3 mmol/L [facility] Sodium (BldA) [Moles/Vol] 132 mmol/L Low 136 - 145 mmol/L [facility] Anion gap 4 (BldA) [Moles/Vol] 8 mmo/L Low 10-25 [facility] Comment on above: Performed By: #### 5 7021-8 #### TITUS Mercado ([id number]) [facility] ([facility]) [address] [place] [address] 05644 Base excess Calc (Bld) [Moles/Vol] -1.9000 mmol/L Normal -2.0-3.0 [facility] Comment on above: Performed By: #### 5 7021-8 #### TITUS Mercado ([id number]) [facility] ([facility]) [address] [place] [address] 31216 Calcium.ionized (BldA) [Moles/Vol] 1.24 mmol/L Normal 1.10-1.33 [facility] Comment on above: Performed By: #### 5 7021-8 #### TITUS Mercado ([id number]) [facility] ([facility]) [address] [place] [address] 03085 Chloride (BldA) [Moles/Vol] 104 mmol/L Normal 98-107 [facility] Comment on above: Performed By: #### 5 7021-8 #### TITUS Mercado ([id number]) [facility] ([facility]) [address] [place] [address] 02526 CO2 (Bld) [Partial pressure] 46 mm Hg High 38-42 [facility] Comment on above: Performed By: #### 5 7021-8 #### TITUS Mercado ([id number]) [facility] ([facility]) [address] [place] [address] 14824 Glucose [Mass/Vol] 132 mg/dL High 74-99 [facility] Comment on above: Performed By: #### 5 7021-8 #### TITUS Mercado ([id number]) [facility] ([facility]) [address] [place] [address] 54317 HCO3 (Bld) [Moles/Vol] 24.3 mmol/L Normal 22.0-26.[address] [facility] Comment on above: Performed By: #### 5 7021-8 #### TITUS Mercado ([id number]) [facility] ([facility]) [address] [place] [address] 48492 Hematocrit Est (Bld) [Volume fraction] 39.0 % Low 41.0-52.0 [facility] Comment on above: Performed By: #### 5 7021-8 #### TITUS Mercado (51953) [facility] ([facility]) [address] [place] [address] 04240 Hemoglobin (Bld) [Mass/Vol] 12.9 g/dL Low 13.5-17.5 [facility] Comment on above: Performed By: #### 5 7021-8 #### TITUS Mercado ([id number]) [facility] ([facility]) [address] [place] [address] 70219 Inhaled oxygen concentration 44 % Normal [facility] Comment on above: Performed By: #### 5 7021-8 #### TITUS Mercado ([id number]) [facility] ([facility]) [address] [place] [address] 19776 Lactate (BldA) [Moles/Vol] 0.7 mmol/L Normal 0.4-2.0 [facility] Comment on above: Performed By: #### 5 7021-8 #### TITUS Mercado ([id number]) [facility] ([facility]) [address] [place] [address] 96076 Oxygen (Bld) [Partial pressure] 156 mm Hg High 85-95 [facility] Comment on above: Performed By: #### 5 7021-8 #### TITUS Mercado ([id number]) [facility] ([facility]) [address] [place] [address] 36029 Oxyhemoglobin (BldA) [Mass fraction] 95.0 % Normal 94.0-98.0 [facility] Comment on above: Performed By: #### 5 7021-8 #### TITUS Mercado ([id number]) [facility] ([facility]) [address] [place] [address] 47565 pH (Bld) 7.33 [pH] Low 7.38-7.42 [facility] Comment on above: Performed By: #### 5 7021-8 #### TITUS Mercado ([id number]) [facility] ([facility]) [address] [place] [address] 28710 Potassium (BldA) [Moles/Vol] 4.5 mmol/L Normal 3.5-5.3 [facility] Comment on above: Performed By: #### 5 7021-8 #### TITUS Mercado ([id number]) [facility] ([facility]) [address] [place] [address] 31333 Sodium (BldA) [Moles/Vol] 132 mmol/L Low 136-145 [facility] Comment on above: Performed By: #### 5 7021-8 #### TITUS Mercado ([id number]) [facility] ([facility]) [address] [place] [address] 52692 XR tomography Unspecified monique dy regionon 04-09-2024 These images are not reportable by radiology and will not be interpreted by Radiologists. IMAGING CT TRANSFER OF OUTSIDE FILMS on 03-31-2024 CT TRANSFER OF OUTSIDE FILMS Outside images for comparison or treatment purposes, not interpreted by Radiologists. [facility] Study Interpretation of outs jeffrey studyon 03-31-2024 Outside images for comparison or treatment purposes, not interpreted by Radiologists. IMAGING Blood type and Indirect anti body screen panel (Bld)on 03-26-2024 ABO group Nom (Bld) A Normal [facility] Comment on above: Performed By: #### 3 4532-2 #### TITUS Mercado ([id number]) [facility] ([facility]) [address] [place] [address] Blood group antibody screen Ql Negative [facility] Comment on above: Performed By: #### 3 4532-2 #### TITUS Mercado ([id number]) [facility] ([facility]) [address] [place] [address] D Ag Ql (Bld) Positive [facility] Comment on above: Performed By: #### 3 4532-2 #### TITUS Mercado ([id number]) [facility] ([facility]) [address] [place] [address] DEXA BONE DENSITYon 02-13-20 24 DEXA BONE DENSITY Interpreted By: Ruddy Simmons, STUDY: DEXA BONE DENSITY02/13/2024 10:50 am INDICATION: Signs/Symptoms:r/o osteoporosis, NEED AXIAL SKELETON IMAGES.. The patient is a 63 y/o year old M. ,M54.12 Radiculopathy, cervical region COMPARISON: None. ACCESSION NUMBER(S): [id number] ORDERING CLINICIAN: DORETHA HARRIS TECHNIQUE: DEXA BONE [...] Ruddy Lopez 12/29/2024 8:09 AM Dictation workstation: [id number] [facility] DXA Skeletal system Views fo r [...] Radiculopathy, cervical region COMPARISON: None. ACCESSION NUMBER(S): [id number] ORDERING CLINICIAN: DORETHA HARRIS FINDINGS: C-spine, 6 [...] Romulo Medrano 02/19/2024 6:35 PM Dictation workstation: [id number] [facility] Comment on above: Order Comment: Micheal christiano marlene with flexion and extension XR CHEST 2 VIEWSon XR CHEST 2 VIEWS Interpreted By: Romulo Hubbard, STUDY: XR CHEST 2 VIEWS; 02/13/2024 11:10 am INDICATION: Signs/Symptoms:Preop surgery 02/[address] Steven MD. ,M54.12 Radiculopathy, cervical region,M81.0 Age-related osteoporosis without current pathological fracture COMPARISON: None. ACCESSION NUMBER(S): [id number] ORDERING CLINICIAN: DORETHA HARRIS FINDINGS: CARDIOMEDIASTINAL SILHOUETTE: Cardiomediastinal silhouette is normal in size and configuration. LUNGS: Lungs are clear. ABDOMEN: No remarkable upper abdominal findings. BONES: No acute osseous changes. IMPRESSION: 1. No evidence of acute cardiopulmonary process. MACRO: None Signed by: Romulo Medrano 02/19/2024 6:53 PM Dictation workstation: [id number] [facility] ECG 12 leadOrdered By: Shavon Rico on 02-12-2024 Atrial Rate 63 BPM [facility] Work Phone: [phone] P Salem 58 degrees [facility] Work Phone: [phone] P Offset 149 ms [facility] Work Phone: [phone] P Onset 90 ms [facility] Work Phone: [phone] UT Interval 268 ms [facility] Work Phone: [phone] Q Onset 224 ms [facility] Work Phone: [phone] QRS Count 10 beats [facility] Work Phone: [phone] QRS Duration 74 ms [facility] Work Phone: [phone] QT Interval 406 ms [facility] Work Phone: [phone] QTC Calculation(Bazett) 415 ms [facility] Work Phone: [phone] QTC Fredericia 412 ms [facility] Work Phone: R Salem -3 degrees [facility] Work Phone: T Salem 18 degrees [facility] Work Phone: T Offset 427 ms [facility] Work Phone: Ventricular Rate 63 BPM [facility] Work Phone: [facility] Work Phone: ECG 12 leadon 02-12-2024 [...] Tobi Rico ([id number]) on 02/12/2024 12:20:00 PM [facility] Work Phone: Basic metabolic 2000 panelon 02-11-2024 Anion gap [Moles/Vol] 13 mmol/L Normal 10-[address] [facility] Comment on above: Performed By: #### 2 4321-2 #### TITUS Mercado ([id number]) [facility] ([facility]) [address] [place] [address] 69479 Calcium [Mass/Vol] 9.6 mg/dL Normal 8.6-10.6 [facility] Comment on above: Performed By: #### 2 4321-2 #### TITUS Mercado ([id number]) [facility] ([facility]) [address] [place] [address] 67009 Chloride [Moles/Vol] 104 mmol/L Normal 98-107 [facility] Comment on above: Performed By: #### 2 4321-2 #### TITUS Mercado ([id number]) [facility] ([facility]) [address] [place] [address] CO2 [Moles/Vol] 26 mmol/L Normal 21-32 [facility] Comment on above: Performed By: #### 2 4321-2 #### TITUS Mercado ([id number]) [facility] ([facility]) [address] [place] [address] Creatinine [Mass/Vol] 0.89 mg/dL Normal 0.50-1.[address] [facility] Comment on above: Performed By: #### 2 4321-2 #### TITUS Mercado ([id number]) [facility] ([facility]) [address] [place] [address] GFR/1.73 sq M.predicted MDRD (S/P/Bld) [Vol rate/Area] mL/min/{1.73_m2} Normal >60 [facility] Comment on above: Result Comment: Calc ulations of estimated GFR are performed using the 2020 CKD-EPI Study Refit equation without the race variable for the IDMS-Traceable creatinine methods. https://jasn.asnjournals.org/content/early/ASN.07216 16515 Performed By: #### 2 4321-2 #### TITUS Mercado ([id number]) [facility] ([facility]) [address] [place] [address] Glucose [Mass/Vol] 77 mg/dL Normal 74-99 [facility] Comment on above: Performed By: #### 2 4321-2 #### TITUS Mercado ([id number]) [facility] ([facility]) [address] [place] [address] Potassium [Moles/Vol] 4.6 mmol/L Normal 3.5-5.[address] [facility] Comment on above: Performed By: #### 2 4321-2 #### TITUS Mercado (52794) [facility] ([facility]) [address] [place] [address] Sodium [Moles/Vol] 138 mmol/L Normal 136-145 [facility] Comment on above: Performed By: #### 2 4321-2 #### TITUS Mercado (06032) [facility] ([facility]) [address] [place], [place] [address] Urea nitrogen [Mass/Vol] 9 mg/dL Normal 6-23 [facility] Comment on above: Performed By: #### 2 4321-2 #### TITUS Mercado ([id number]) [facility] ([facility]) [address] [place], [place] [address] Blood type and Indirect anti body screen panel (Bld)on 02-11-2024 ABO group Nom (Bld) A Normal [facility] Comment on above: Performed By: #### 3 4532-2 #### TITUS Mercado ([id number]) [facility] ([facility]) [address] [place], [place] [address] Blood group antibody screen Ql Negative Normal [facility] Comment on above: Performed By: #### 3 4532-2 #### TITUS Mercado (74691) [facility] ([facility]) [address] [place], [place] [address] D Ag Ql (Bld) Positive Normal [facility] Comment on above: Performed By: #### 3 4532-2 #### TITUS Mercado (77887) [facility] ([facility]) [address] [place], [place] [address] CBC W Auto Differential pane l (Bld)on 02-11-2024 Basophils (Bld) [#/Vol] 0.04 x10*3/uL Normal 0.00-0.10 [facility] Comment on above: Performed By: #### 5 7021-8 #### TITUS Mercado ([id number]) [facility] ([facility]) [address] [place] [address] 86705 Basophils/100 WBC (Bld) 0.8 % Normal 0.0-2.0 [facility] Comment on above: Performed By: #### 5 7021-8 #### TITUS Mercado (47892) [facility] ([facility]) [address] [place] [address] 82878 Eosinophils (Bld) [#/Vol] 0.05 x10*3/uL Normal 0.00-0.70 [facility] Comment on above: Performed By: #### 5 7021-8 #### TITUS Mercado ([id number]) [facility] ([facility]) [address] [place] [address] 92614 Eosinophils/100 WBC (Bld) 1.0 % Normal 0.0-6.0 [facility] Comment on above: Performed By: #### 5 7021-8 #### TITUS Mercado (68800) [facility] ([facility]) [address] [place] [address] 53265 Erythrocyte distribution width (RBC) [Ratio] 13.2 % Normal 11.5-14.5 [facility] Comment on above: Performed By: #### 5 7021-8 #### TITUS Mercado (43608) [facility] ([facility]) [address] [place] [address] 96742 Hematocrit (Bld) [Volume fraction] 39.6 % Low 41.0-52.0 [facility] Comment on above: Performed By: #### 5 7021-8 #### TITUS Mercado (34241) [facility] ([facility]) [address] [place] [address] 95450 Hemoglobin (Bld) [Mass/Vol] 13.2 g/dL Low 13.5-17.5 [facility] Comment on above: Performed By: #### 5 7021-8 #### TITUS Mercado ([id number]) [facility] ([facility]) [address] [place] [address] 26840 Immature granulocytes (Bld) [#/Vol] 0.00 x10*3/uL Normal 0.00-0.70 [facility] Comment on above: Performed By: #### 5 7021-8 #### TITUS Mercado ([id number]) [facility] ([facility]) [address] [place] [address] 20894 Immature granulocytes/100 WBC (Bld) 0.0 % Normal 0.0-0.9 [facility] Comment on above: Result Comment: Dayan ture Granulocyte Count (IG) includes promyelocytes, myelocytes and metamyelocytes but does not include bands. Percent differential counts (%) should be interpreted in the context of the absolute cell counts (cells/UL). Performed By: #### 5 7021-8 #### TITUS Mercado (19052) [facility] ([facility]) [address] [place] [address] 26053 Lymphocytes (Bld) [#/Vol] 1.74 x10*3/uL Normal 1.20-4.80 [facility] Comment on above: Performed By: #### 5 7021-8 #### TITUS Mercado (60123) [facility] ([facility]) [address] [place] [address] 54614 Lymphocytes/100 WBC (Bld) 33.1 % Normal 13.0-44.0 [facility] Comment on above: Performed By: #### 5 7021-8 #### TITUS Mercado ([id number]) [facility] ([facility]) [address] [place] [address] 46876 MCH (RBC) [Entitic mass] 31.5 pg Normal 26.0-34.0 [facility] Comment on above: Performed By: #### 5 7021-8 #### TITUS Mercado (50205) [facility] ([facility]) [address] [place] [address] 32549 MCHC (RBC) [Mass/Vol] 33.3 g/dL Normal 32.0-36.[address] [facility] Comment on above: Performed By: #### 5 7021-8 #### TITUS Mercado ([id number]) [facility] ([facility]) [address] [place] [address] 30065 MCV (RBC) [Entitic vol] 95 fL Normal 80-100 [facility] Comment on above: Performed By: #### 5 7021-8 #### TITUS Mercado (67127) [facility] ([facility]) [address] [place] [address] Monocytes (Bld) [#/Vol] 0.30 x10*3/uL Normal 0.10-1.00 [facility] Comment on above: Performed By: #### 5 7021-8 #### TITUS Mercado ([id number]) [facility] ([facility]) [address] [place] [address] 69174 Monocytes/100 WBC (Bld) 5.7 % Normal 2.0-10.0 [facility] Comment on above: Performed By: #### 5 7021-8 #### TITUS Mercado (24871) [facility] ([facility]) [address] [place] [address] 48580 Neutrophils (Bld) [#/Vol] 3.13 x10*3/uL Normal 1.20-7.70 [facility] Comment on above: Result Comment: Perc ent differential counts (%) should be interpreted in the context of the absolute cell counts (cells/uL). Performed By: #### 5 7021-8 #### TITUS Mercado ([id number]) [facility] ([facility]) [address] [place] [address] 63066 Neutrophils/100 WBC (Bld) 59.4 % Normal 40.0-80.0 [facility] Comment on above: Performed By: #### 5 7021-8 #### TITUS Mercado (99876) [facility] ([facility]) [address] [place] [address] 96711 Nucleated RBC/100 WBC (Bld) [Ratio] 0.0 /100 WBCs Normal 0.0-0.0 [facility] Comment on above: Performed By: #### 5 7021-8 #### TITUS Mercado ([id number]) [facility] [facility]) [id number] [place] [address] Platelets (Bld) [#/Vol] 271 x10*3/uL Normal 150-450 [facility] Comment on above: Performed By: #### 5 7021-8 #### TITUS SOLORZANO L ([id number]) [facility] ([facility]) [address] [place] [address] RBC (Bld) [#/Vol] 4.19 x10*6/uL Low 4.50-5.90 [facility] Comment on above: Performed By: #### 5 7021-8 #### TITUS PAYANMOTZER L ([id number]) [facility] ([facility]) [address] [place] [address] WBC (Bld) [#/Vol] 5.3 x10*3/uL Normal 4.4-11.3 [facility] Comment on above: Performed By: #### 5 7021-8 #### TITUS ELENAER L ([id number]) [facility] ([facility]) [address] [place] [address] ECG 12-LEADon 02-11-2024 ECG 12-LEAD Ventricular Rate 63 Atrial Rate 63 P-R Interval 268 QRS Duration 74 Q-T Interval 406 QTC Calculation(Bazett) 415 P Salem 58 R Salem -3 T Salem 18 QRS Count 10 Q Onset 224 P Onset 90 P Offset 149 T Offset 427 QTC Fredericia 412 Diagnosis Sinus rhythm with 1st degree AV block Otherwise normal ECG When compared with ECG of 30-JAN-2019 19:26, heart rate decreased Confirmed by Tobi Rico ([id number]) on 02/12/2024 12:20:00 PM Normal [facility] NICOTINE AND METABOLITES,Son 02-11-2024 Cotinine [Mass/Vol] 152 ng/mL Normal [facility] Comment on above: Performed By: #### N I+ME #### ANSELMO [facility]) ([id number]) [address] [place] [address] Nicotine [Mass/Vol] 6 ng/mL Normal [facility] Comment on above: Result Comment: INTE [...] developed and its performance characteristics determined by [employer] [facility]. It has not been cleared or approved by the US Food and Drug Administration. This test was performed in a CLIA certified laboratory and is intended for clinical purposes. Performed By: [facility] [employer] [facility] [address] [place] [address] Line Runner: Benjamin Bullock MD, PhD CLIA Number: [id number] Performed By: #### N I+ME #### [facility] ([id number]) [address] [place] [address] PT and aPTT panel Coag (PPP) on 02-11-2024 aPTT Coag (PPP) [Time] 33 s Normal 27-38 [facility] Comment on above: Order Comment: The A PTT is no longer used for monitoring Unfractionated Heparin Therapy. For monitoring Heparin Therapy, use the Heparin Assay. Performed By: #### 3 4529-8 #### TITUS Mercado ([id number]) [facility] ([facility]) [address] [place] [address] INR Coag (PPP) [Relative time] 1.0 Normal 0.9-1.1 [facility] Comment on above: Order Comment: The A PTT is no longer used for monitoring Unfractionated Heparin Therapy. For monitoring Heparin Therapy, use the Heparin Assay. Performed By: #### 3 4529-8 #### TITUS Mercado ([id number]) [facility] ([facility]) [address] [place] [address] PT Coag (PPP) [Time] 11.5 s Normal 9.8-12.8 [facility] Comment on above: Order Comment: The A PTT is no longer used for monitoring Unfractionated Heparin Therapy. For monitoring Heparin Therapy, use the Heparin Assay. Performed By: #### 3 4529-8 #### TITUS Mercado ([id number]) [facility] ([facility]) [address] [place] [address] Staphylococcus aureus.methic illin resistant isolateon 02-11-2024 MRSA isol Org specific cx Ql (Nose) Test: Staphylococcus aureus/MRSA colonization, Culture Specimen Source: Anterior Nares Specimen Type: Swab Specimen Date: 02/11/2024 1505 Result Date: 02/13/2024 08 Result Status: Final result Abnormal: No Resulting Lab: [facility] [address] [place], [place] [id number] CULTURE No Staphylococcus aureus isolated Normal [facility] Comment on above: Performed By: #### 5 2969-3 #### TITUS Mercado ([id number]) [facility] ([facility]) [address] [place] [address] Urinalysis complete W Reflex Culture panel (U)on 02-11-2024 Appearance (U) Clear Normal Clear [facility] Comment on above: Performed By: #### 5 8077-9 #### TITUS Mercado ([id number]) [facility] ([facility]) [address] [place] [address] Bilirubin (U) [Mass/Vol] Negative Normal NEGATIVE [facility] Comment on above: Performed By: #### 5 8077-9 #### TITUS Mercado ([id number]) [facility] ([facility]) [address] [place] [address] Color (U) Colorless Normal Light-Emanuel ow, Yellow, Dark-Yello w [facility] Comment on above: Performed By: #### 5 8077-9 #### TITUS Mercado ([id number]) [facility] ([facility]) [address] [place] [address] Glucose Auto test strip (U) [Mass/Vol] Normal Normal Normal [facility] Comment on above: Performed By: #### 5 8077-9 #### TITUS Mercado ([id number]) [facility] ([facility]) [address] [place] [address]009 Ketones (U) [Mass/Vol] Negative Normal [facility]IVE [facility] above: Performed By: #### 5 8077-9 #### TITUS Mercado ([id number]) [facility] ([facility]) [address] [place] [address]76 Leukocyte esterase Auto test strip Ql (U) Negative Normal NEGATIVE [facility] Comment on above: Performed By: #### 5 8077-9 #### TITUS Mercado ([id number]) [facility] ([facility]) [address] [place] [address] Nitrite Auto test strip Ql (U) Negative Normal NEGATIVE [facility] Comment on above: Performed By: #### 5 8077-9 #### TITUS Mercado ([id number]) [facility] ([facility]) [address] [place] [address]59 pH (U) 5.5 [pH] Normal 5.0, 5.5, 6.0, 6.5, 7.0, 7.5, 8.0 [facility] Comment on above: Performed By: #### 5 8077-9 #### TITUS Mercado ([id number]) [facility] ([facility]) [address] [place] [address] Protein (U) [Mass/Vol] Negative Normal NEGAT KURT, 10 (TRACE), 20 (TRACE) [facility] Comment on above: Performed By: #### 5 8077-9 #### TITUS Mercado ([id number]) [facility] ([facility]) [address] [place] [address] RBC (U) [#/Vol] Negative Normal NEGATIVE [facility] Comment on above: Performed By: #### 5 8077-9 #### TITUS Mercado ([id number]) [facility] ([facility]) [address] [place] [address] Specific gravity (U) [Rel density] 1.007 Normal 1.005-1.03 5 [facility] Comment on above: Performed By: #### 5 8077-9 #### TITUS Mercado ([id number]) [facility] ([facility]) [address] [place] [address] Urobilinogen (U) [Mass/Vol] Normal Normal Normal [facility] Comment on above: Performed By: #### 5 8077-9 #### TITUS Mercado ([id number]) [facility] ([facility]) [id number] [place] [address] MR BRAIN TUMOR PERFUSION PRO TOCOL W AND WO IV CONTRASTon 12-13-2023 MR BRAIN TUMOR PERFUSION PROTOCOL W AND WO IV CONTRAST Interpreted By: Nate Benavidez, STUDY: MR BRAIN TUMOR PERFUSION PROTOCOL W AND WO IV CONTRAST; 12/13/2023 8:49 am INDICATION: Signs/Symptoms:pontine lesion, imaging surveillance. COMPARISON: None. ACCESSION NUMBER(S): [id number] ORDERING CLINICIAN: SHIMON HEATON TECHNIQUE: Axial diffusion, [...] Nate Benavidez 12/13/2023 9:38 AM Dictation workstation: [id number] [facility] Comment on above: Order Comment: JESSICA [...] Nate Benavidez 12/13/2023 9:38 AM Dictation workstation: [id number] Interpreted By: Nate Dejesus, STUDY: MR BRAIN TUMOR PERFUSION PROTOCOL W AND WO IV CONTRAST; 12/13/2023 8:49 am INDICATION: Signs/Symptoms:pontine lesion, imaging surveillance. COMPARISON: None. ACCESSION NUMBER(S): [id number] ORDERING CLINICIAN: SHIMON HEATON TECHNIQUE: Axial diffusion, [...] lesion, imaging surveillance. COMPARISON: None. ACCESSION NUMBER(S): [id number] ORDERING CLINICIAN: SHIMON HEATON TECHNIQUE: Axial diffusion, [...] Nate Benavidez 12/13/2023 9:38 AM Dictation workstation: [id number] [facility] Work Phone: Radiology Study observation (narrative) [facility] Work Phone: MR Brain for new diagnosis t umor WO and W contrast IVOrdered By: Nate Benavidez on 12-13-2023 [facility] Work Phone: Basophils Auto (Bld) [#/Vol] on 10-26-2023 Basophils (Bld) [#/Vol] 0.04 10*3/uL <0.11 [facility] Basophils/100 WBC Auto (Bld) on 10-26-2023 Basophils/100 WBC (Bld) 0.5 % [facility] Blood manual differential co mment interpretation narrativeon 10-26-2023 Manual differential comment Curtis (Bld) [Interp] Auto [facility] CBC W Auto Differential pane l (Bld)on 10-26-2023 Basophils (Bld) [#/Vol] 0.04 10*3/uL [facility] Basophils/100 WBC (Bld) 0.5 % [facility] Differential cell count method Nom (Bld) Auto [facility] Eosinophils (Bld) [#/Vol] 0.13 10*3/uL [facility] Eosinophils/100 WBC (Bld) 1.5 % [facility] Erythrocyte distribution width (RBC) [Ratio] 13.8 % 11.5 - 15.0 % [facility] Hematocrit (Bld) [Volume fraction] 42.6 % 39.0 - 51.0 % [facility] Hemoglobin (Bld) [Mass/Vol] 14.4 g/dL 13.0 - 17.0 g/dL [facility] Immature granulocytes (Bld) [#/Vol] 0.03 10*3/uL [facility] Immature granulocytes/100 WBC (Bld) 0.3 % [facility] Lymphocytes (Bld) [#/Vol] 2.18 10*3/uL [facility] Monocytes (Bld) [#/Vol] 0.60 10*3/uL [facility] Monocytes/100 WBC (Bld) 6.8 % [facility] [...] WBC (Bld) [#/Vol] 8.78 10*3/uL [facility] CT Chest W contrast Tristin IMPRESSION: [...] any questions regarding this interpretation, please call [phone]. If you are unable to reach us at the number above, please feel free to contact [facility] eRadiology at [phone]. DIVISION OF RADIOLOGY * * *Final Report* * * DATE OF EXAM: Oct 26 2023 10:05AM [facility] 0539 - CT CHEST [...] No additional findings. DIVISION OF RADIOLOGY Provider, [facility] - 10/26/2023 * * *Final Report* * * DATE OF EXAM: Oct 26 2023 10:05AM [facility] 0539 - CT CHEST [...] any questions regarding this interpretation, please call [phone]. If you are unable to reach us at the number above, please feel free to contact [facility] eRadiology at [phone]. [facility] CT Neck W contrast Tristin 05-1 IMPRESSION: Primary: 1: Expected post-treatment changes in the neck without evidence of recurrent disease in the primary site. Neck: 1: No evidence of abnormal lymph nodes. [email or web address] Transcribe Date/Time: Oct 26 2023 10:15A Dictated by: LIMA LIZ MD This examination was interpreted and the report reviewed and electronically signed by: LIMA LIZ MD on Oct 26 2023 10:35AM EST Thank you for allowing us to participate in the care of your patient. Should there be any questions regarding this interpretation, please call [phone]. If you are unable to reach us at the number above, please feel free [facility] at [phone]. 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 Resected T1 N1 base [...] normal. Parotid and submandibular spaces are normal. Fishing Tool Supervisor spaces appear normal. Infrahyoid Neck: Hypopharynx, larynx, [...] are clear of focal consolidation or mass. 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 Resected T1 N1 base [...] normal. Parotid and submandibular spaces are normal. Fishing Tool Supervisor spaces appear normal. Infrahyoid Neck: Hypopharynx, larynx, [...] are clear of focal consolidation or mass. Partition Assembler (topogram) images: Noncontributory IMPRESSION IMPRESSION: Primary: 1: Expected post-treatment changes in the neck without evidence of recurrent disease in the primary site. Neck: 1: No evidence of abnormal lymph nodes. [email or web address] Transcribe Date/Time: Oct 26 2023 10:15A Dictated by: LIMA LIZ MD This examination was interpreted and the report reviewed and electronically signed by: (more content not included)... [facility] CT Neck W contrast IVOrdered By: Ccf Provider on 10-26-2023 [facility] metabolic 2000 panelOrdered By: Pauly [...] [facility] Comment on above: The [place] Diab[employer] s Association (ADA) provides guidance for [...] Standards of Medical Care in Diabetes 2016, [place] [employer]. Diabetes Care. 2016.39(Suppl 1). Interpretation [...] [Mass/Vol] 16 mg/dL 9 - 24 mg/dL [facility] Eosinophils/100 WBC Auto (Bl d)on 10-26-2023 Eosinophils/100 WBC (Bld) 1.5 % [facility] Erythrocyte distribution wid th Auto (RBC) [Ratio]on 10-26-2023 Erythrocyte distribution width (RBC) [Ratio] 13.8 % 11.5-15.0 [facility] Hematocrit Auto (Bld) [Volum e fraction]on 10-26-2023 Hematocrit (Bld) [Volume fraction] 42.6 % 39.0-51.0 [facility] Hemoglobin [Mass/volume] in Bloodon 10-26-2023 Hemoglobin (Bld) [Mass/Vol] 14.4 g/dL 13.0-17.0 [facility] Laboratory - Chemistry and C hemistry - challengeon 10-26-2023 Albumin [Mass/Vol] 4.3 g/dL 3.9-4.9 [facility] ALP [Catalytic activity/Vol] 75 U/L 38-113 [facility] ALT [Catalytic activity/Vol] 10 U/L 10-54 [facility] AST [Catalytic activity/Vol] 9 U/L 14-40 [facility] Bilirubin [Mass/Vol] 0.5 mg/dL 0.2-1.3 [facility] Calcium [Mass/Vol] 9.9 mg/dL 8.5-10.2 [facility] Chloride [Moles/Vol] 106 mmol/L 97-105 [facility] CO2 [Moles/Vol] 27 mmol/L 22-30 [facility] Creatinine [Mass/Vol] 1.01 mg/dL 0.73-1.22 [facility] Glucose [Mass/Vol] 89 mg/dL 74-99 [facility] Comment on above: The [place] Diabete s Association (ADA) provides guidance for [...] Standards of Medical Care in Diabetes 2016, [place] Diabetes Association. Diabetes Care. 2016.39(Suppl 1). Potassium [Moles/Vol] 4.0 mmol/L 3.7-5.1 [facility] Sodium [Moles/Vol] 141 mmol/L 136-144 [facility] Urea nitrogen [Mass/Vol] 16 mg/dL 9 [facility] Laboratory - Hematology and Cell countson 10-26-2023 Eosinophils (Bld) [#/Vol] 0.13 10*3/uL <0.46 [facility] Immature granulocytes (Bld) [#/Vol] 0.03 10*3/uL <0.10 [facility] Immature granulocytes/100 WBC (Bld) 0.3 % [facility] Leukocytes [#/volume] correc mone for nucleated erythrocytes in Blood by Automated counon 10-26-2023 WBC corrected for nucl RBC Auto (Bld) [#/Vol] 8.78 k/uL 3.70-11.00 [facility] Lymphocytes Auto (Bld) [#/Vo l]on 10-26-2023 Lymphocytes (Bld) [#/Vol] 2.18 10*3/uL 1.00-4.00 [facility] Lymphocytes/100 WBC Auto (Bl d)on 10-26-2023 Lymphocytes/100 WBC (Bld) 24.8 % [facility] MCH Auto (RBC) [Entitic mass ]on 10-26-2023 MCH (RBC) [Entitic mass] 32.0 pg 26.0-34.0 [facility] MCHC Auto (RBC) [Mass/Vol]on 10-26-2023 MCHC (RBC) [Mass/Vol] 33.8 g/dL 30.5-36.0 [facility] MCV Auto (RBC) [Entitic vol] on 10-26-2023 MCV (RBC) [Entitic vol] 94.7 fL 80.0-100.0 [facility] Monocytes Auto (Bld) [#/Vol] on 10-26-2023 Monocytes (Bld) [#/Vol] 0.60 10*3/uL <0.87 [facility] Monocytes/100 WBC Auto (Bld) on 10-26-2023 Monocytes/100 WBC (Bld) 6.8 % [facility] Neutrophils Auto (Bld) [#/Vo l]on 10-26-2023 Neutrophils (Bld) [#/Vol] 5.80 10*3/uL 1.45-7.50 [facility] Neutrophils/100 WBC Auto (Bl d)on 10-26-2023 Neutrophils/100 WBC (Bld) 66.1 % [facility] No Panel Informationon 10-25 Radiology Study observation (narrative) [facility] Estimated GFR (CKD-EPI) 85 mL/min/1.73m??? >=60 [facility] Comment on above: Estimated Glomerular Filtration [...] 10-26-2023 Nucleated RBC (Bld) [#/Vol] 10*3/uL <0.01 [facility] Nucleated erythrocytes [Pres ence] in Blood by Automated counton 10-26-2023 Nucleated RBC Auto Ql (Bld) 0.0 /100{WBC} [facility] Platelet mean volume Auto (B ld) [Entitic vol]on 10-26-2023 Platelet mean volume (Bld) [Entitic vol] 10.2 fL 9.0-12.7 [facility] Platelets Auto (Bld) [#/Vol] on 10-26-2023 Platelets (Bld) [#/Vol] 314 10*3/uL 150-400 [facility] Protein [Mass/volume] in Ser um or Plasmaon 10-26-2023 Protein [Mass/Vol] 6.4 g/dL 6.3-8.0 [facility] RBC Auto (Bld) [#/Vol]on RBC (Bld) [#/Vol] 4.50 10*6/uL 4.20-6.00 [facility] Serum or plasma anion gap de terminationon 10-26-2023 Anion gap [Moles/Vol] 8 mmol/L 9-18 [facility] Alanine aminotransferase [En zymatic activity/volume] in Serum or PlasmaOrdered By: Griselda Hastings on 10-09-2023 ALT [Catalytic activity/Vol] 8 U/L 7-52 [facility] Albumin [Mass/volume] in Ser um or Plasma by Bromocresol green (BCG) dye binding methoOrdered By: Griselda Hastings on 10-09-2023 Albumin BCG dye [Mass/Vol] 3.9 g/dL 3.5-5.7 [facility] Alkaline phosphatase [Enzyma tic activity/volume] in Serum or PlasmaOrdered By: Griselda Hastings on 10-09-2023 ALP [Catalytic activity/Vol] 59 U/L 34-104 [facility] Aspartate aminotransferase [ Enzymatic activity/volume] in Serum or PlasmaOrdered By: Griselda Hastings on 10-09-2023 AST [Catalytic activity/Vol] 7 U/L 13-39 [facility] Basophils Auto (Bld) [#/Vol] Ordered By: Griselda Hastings on 10-09-2023 Basophils (Bld) [#/Vol] 0.1 10*3/uL 0.0-0.2 [facility] Basophils/100 WBC Auto (Bld) Ordered By: Griselda Hastings on 10-09-2023 Basophils/100 WBC (Bld) 0.9 % . [facility] Bilirubin.total [Mass/volume ] in Serum or PlasmaOrdered By: Griselda Hastings on 10-09-2023 Bilirubin [Mass/Vol] 0.5 mg/dL 0.3-1.0 [facility] COVID-19 Detected/Not Detect edOrdered By: Griselda Hastings on 10-09-2023 SARS-CoV-2 (COVID-19) RNA JER+non-probe Ql (Nph) Not detected Not Detecte [facility] Comment on above: This is a duplicate RP2.1 COVID (PCR) result to be used for statistical tracking purpose only. Calcium [Mass/volume] in Ser um or PlasmaOrdered By: Griselda Hastings on 10-09-2023 Calcium [Mass/Vol] 9.5 mg/dL 8.6-10.3 [facility] Carbon dioxide, total [Moles /volume] in Serum or PlasmaOrdered By: Griselda Hastings on 10-09-2023 CO2 [Moles/Vol] 30.0 mmol/L 21.0-31.0 [place] Chloride [Moles/volume] in S r[place] or PlasmaOrdered By: Griselda Hastings on 10-09-2023 Chloride [Moles/Vol] 103 mmol/L 98-107 [facility] Creatinine [Mass/volume] in Serum or PlasmaOrdered By: Griselda Hastings on 10-09-2023 Creatinine [Mass/Vol] 0.92 mg/dL 0.70-1.30 [facility] Eosinophils Auto (Bld) [#/Vo l]Ordered By: Griselda Hastings on 10-09-2023 Eosinophils (Bld) [#/Vol] 0.1 10*3/uL 0.0-0.45 [facility] Eosinophils/100 WBC Auto (Bl d)Ordered By: Griselda Hastings on 10-09-2023 Eosinophils/100 WBC (Bld) 1.0 % . [facility] Erythrocyte distribution wid th Auto (RBC) [Ratio]Ordered By: Griselda Hastings on 10-09-2023 Erythrocyte distribution width (RBC) [Ratio] 14.3 % 12.0-14.8 [facility] Globulin Calc (S) [Mass/Vol] Ordered By: Griselda Hastings on 10-09-2023 Globulin (S) [Mass/Vol] 2.0 g/dL [facility] Glucose [Mass/volume] in Ser um or PlasmaOrdered By: Griselda Hastings on 10-09-2023 Glucose [Mass/Vol] 84 mg/dL 70-100 [facility] Comment on above: ADA recommended refe rence rangeRandom Glucose Reference Range is dependent on time and content of last meal. Glucose of more than 200 mg/dL in a nonstressed, ambulatory subject supports the diagnosis of Diabetes Mellitus. Hematocrit Auto (Bld) [Volum e fraction]Ordered By: Griselda Hastings on 10-09-2023 Hematocrit (Bld) [Volume fraction] 41.9 % 38.8-50.0 [facility] Hemoglobin [Mass/volume] in BloodOrdered By: Griselda Hastings on 10-09-2023 Hemoglobin (Bld) [Mass/Vol] 14.4 g/dL 13.0-17.0 [facility] Leukocytes [#/volume] correc mone for nucleated erythrocytes in Blood by Automated counOrdered By: Griselda Hastings on 10-09-2023 WBC corrected for nucl RBC Auto (Bld) [#/Vol] 8.1 10*3/uL 4.1-10.5 [facility] Lymphocytes Auto (Bld) [#/Vo l]Ordered By: Griselda Hastings on 10-09-2023 Lymphocytes (Bld) [#/Vol] 2.7 10*3/uL 1.00-4.8 [facility] Lymphocytes/100 WBC Auto (Bl d)Ordered By: Griselda Hastings on 10-09-2023 Lymphocytes/100 WBC (Bld) 33.6 % . [facility] MCH Auto (RBC) [Entitic mass ]Ordered By: Griselda Hastings on 10-09-2023 MCH (RBC) [Entitic mass] 32.7 pg 27.5-35.2 [facility] MCHC Auto (RBC) [Mass/Vol]Or dered By: Griselda Hastings on 10-09-2023 MCHC (RBC) [Mass/Vol] 34.4 g/dL 32.5-35.6 [facility] MCV Auto (RBC) [Entitic vol] Ordered By: Griselda Hastings on 10-09-2023 MCV (RBC) [Entitic vol] 94.8 fL 83.5-101 [facility] Monocytes Auto (Bld) [#/Vol] Ordered By: Griselda Hastings on 10-09-2023 Monocytes (Bld) [#/Vol] 0.6 10*3/uL 0.0-0.8 [facility] Monocytes/100 WBC Auto (Bld) Ordered By: Griselda Hastings on 10-09-2023 Monocytes/100 WBC (Bld) 7.5 % . [facility] Neutrophils Auto (Bld) [#/Vo l]Ordered By: Griselda Hastings on 10-09-2023 Neutrophils (Bld) [#/Vol] 4.6 10*3/uL 1.8-7.7 [facility] Neutrophils/100 WBC Auto (Bl d)Ordered By: Griselda Hastings on 10-09-2023 Neutrophils/100 WBC (Bld) 57.0 % . [facility] No Panel InformationOrdered By: Griselda Hastings on 10-09-2023 Estimated GFR (CKD-EPI) > 60.0 mL/Min [facility] Creatinine Clearance (Chem N/A [facility] Nucleated erythrocytes [Pres ence] in Blood by Automated countOrdered By: Griselda Hastings on 10-09-2023 Nucleated RBC Auto Ql (Bld) 0.2 /100{WBC} 0-0.5 [facility] Platelet mean volume Auto (B ld) [Entitic vol]Ordered By: Griselda Hastings on 10-09-2023 Platelet mean volume (Bld) [Entitic vol] 8.3 fL 6.6-10.1 [facility] Platelets Auto (Bld) [#/Vol] Ordered By: Griselda Hastings on 10-09-2023 Platelets (Bld) [#/Vol] 349 10*3/uL 150-450 [facility] Potassium [Moles/volume] in Serum or PlasmaOrdered By: Griselda Hastings on 10-09-2023 Potassium [Moles/Vol] 4.5 mmol/L 3.5-5.1 [facility] Protein [Mass/volume] in Ser um or PlasmaOrdered By: Griselda Hastings on 10-09-2023 Protein [Mass/Vol] 5.9 g/dL 6.4-8.9 [facility] RBC Auto (Bld) [#/Vol]Ordere d By: Griselda Hastings on 10-09-2023 RBC (Bld) [#/Vol] 4.42 10*6/uL 3.90-5.60 [facility] Respiratory pathogens DNA an d RNA panel - Nasopharynx by JER with non-probe detectionOrdered By: Griselda Hastings on 10-09-2023 Respiratory pathogens DNA and RNA panel JER+non-probe (Nph) [facility] Serum or plasma albumin/glob ulin mass ratioOrdered By: Griselda Hastings on 10-09-2023 Albumin/Globulin [Mass ratio] 2.0 {ratio} [facility] Serum or plasma anion gap de terminationOrdered By: Griselda Hastings on 10-09-2023 Anion gap [Moles/Vol] 9.5 mmol/L 6.0-15.0 [facility] Sodium [Moles/volume] in Ser um or PlasmaOrdered By: Griselda Hastings on 10-09-2023 Sodium [Moles/Vol] 138 mmol/L 136-145 [facility] Urea nitrogen [Mass/volume] in Serum or PlasmaOrdered By: Griselda Hastings on 10-09-2023 Urea nitrogen [Mass/Vol] 14 mg/dL 7-25 [facility] WBC Auto (Bld) [#/Vol]Ordere d By: Griselda Hastings on 10-09-2023 WBC (Bld) [#/Vol] 8.1 10*3/uL 4.1-10.5 [facility] Study Interpretation of outs jeffrey [...] elsewhere in the brain Interpreted by: Vitor Hicmkan MD Signed by: Vitor Hickman MD 08/01/23 Final result Normal [facility] MRI CERVICAL SPINE WO CONTRA [...] Vitor Hickman MD 08/01/23 Final result Normal [facility] COVID + FLU Quick Testingon 07-02-2023 SARS-CoV-2 (COVID-19) RNA JER+probe Ql (Unsp spec) Negative [employer] Other COVID + FLU Quick Testing Negative [employer] Other Quick Strepon 07-02-2023 S. pyogenes Org specific cx Ql (Throat) Negative [employer] Other Quick Strep [employer] Other RSVon 07-02-2023 RSV Ag IA Ql (Unsp spec) Negative [employer] Other Creatinine [Mass/volume] in Serum or PlasmaOrdered By: Ruddy Harvey on 05-07-2023 Creatinine [Mass/Vol] 0.91 mg/dL 0.70-1.30 [facility] No Panel InformationOrdered By: Ruddy Harvey on 05-07-2023 Estimated GFR (CKD-EPI) > 60.0 mL/Min [facility] Creatinine Clearance (Chem 83.52 [facility] Urea nitrogen [Mass/volume] in Serum or PlasmaOrdered By: Ruddy Harvey on 05-07-2023 Urea nitrogen [Mass/Vol] 15 mg/dL 01-09 [facility] Creatinine (Bld) [Mass/Vol]O rdered By: Nikole Mota on 05-04-2023 Creatinine [Mass/Vol] 0.9 mg/dL 0.6-1.3 [facility] Comment on above: ER/ESD physician is notified/shown all ISTAT results.Critical values may be confirmed by laboratory testing ifdeemed necessary by ER attending doctor. No Panel InformationOrdered By: Nikole Mota on 05-04-2023 Bedside Estimated GFR (eGFR) > 60.0 [facility] Alanine aminotransferase [En zymatic activity/volume] in Serum or PlasmaOrdered By: Griselda Hastings on 03-30-2023 ALT [Catalytic activity/Vol] 10 U/L [facility] Albumin [Mass/volume] in Ser um or Plasma by Bromocresol green (BCG) dye binding methoOrdered By: Griselda Hastings on 03-30-2023 Albumin BCG dye [Mass/Vol] 4.2 g/dL 3.5-5.7 [facility] Alkaline phosphatase [Enzyma tic activity/volume] in Serum or PlasmaOrdered By: Griselda Hastings on 03-30-2023 ALP [Catalytic activity/Vol] 61 U/L 34-104 [facility] Aspartate aminotransferase [ Enzymatic activity/volume] in Serum or PlasmaOrdered By: Griselda Hastings on 03-30-2023 AST [Catalytic activity/Vol] 8 U/L 13-39 [facility] Basophils Auto (Bld) [#/Vol] Ordered By: Griselda Hastings on 03-30-2023 Basophils (Bld) [#/Vol] 0.1 10*3/uL 0.0-0.2 [facility] Basophils/100 WBC Auto (Bld) Ordered By: Griselda Hastings on 03-30-2023 Basophils/100 WBC (Bld) 0.8 % . [facility] Bilirubin.total [Mass/volume ] in Serum or PlasmaOrdered By: Griselda Hastings on 03-30-2023 Bilirubin [Mass/Vol] 0.9 mg/dL 0.3-1.0 [facility] Calcium [Mass/volume] in Ser um or PlasmaOrdered By: Griselda Hastings on 03-30-2023 Calcium [Mass/Vol] 9.1 mg/dL 8.6-10.3 [facility] Carbon dioxide, total [Moles /volume] in Serum or PlasmaOrdered By: Griselda Hastings on 03-30-2023 CO2 [Moles/Vol] 27.0 mmol/L 21.0-31.0 [place] Chloride [Moles/volume] in [place] r[place] or PlasmaOrdered By: Griselda Hastings on 03-30-2023 Chloride [Moles/Vol] 103 mmol/L 98-107 [facility] Cholesterol [Mass/volume] in Serum or PlasmaOrdered By: Griselda Hastings on 03-30-2023 Cholesterol [Mass/Vol] 224 mg/dL 140-200 [facility] Comment on above: Chol less than 200 m g/dl low riskChol 201-239 mg/dl borderline riskChol 240 mg/dl and greater high risk Cholesterol in LDL Calc [Mas s/Vol]Ordered By: Griselda Hastings on 03-30-2023 Cholesterol in LDL [Mass/Vol] 148 mg/dL 0-100 [facility] Comment on above: LDL ATP III CLASSIFI CATIONLDL less than 100 mg/dL OptimalLDL 100-129 mg/dL Near or above optimalLDL 130-159 mg/dL Borderline highLDL 160-189 mg/dL HighLDL greater than 189 mg/dL Very high Cholesterol in VLDL Calc [Ma ss/Vol]Ordered By: Griselda Hastings on 03-30-2023 Cholesterol in VLDL [Mass/Vol] 31 mg/dL [facility] Creatinine [Mass/volume] in Serum or PlasmaOrdered By: Griselda Hastings on 03-30-2023 Creatinine [Mass/Vol] 0.82 mg/dL 0.70-1.30 [facility] Eosinophils Auto (Bld) [#/Vo l]Ordered By: Griselda Hastings on 03-30-2023 Eosinophils (Bld) [#/Vol] 0.1 10*3/uL 0.0-0.45 [facility] Eosinophils/100 WBC Auto (Bl d)Ordered By: Griselda Hastings on 03-30-2023 Eosinophils/100 WBC (Bld) 0.6 % . [facility] Erythrocyte distribution wid th Auto (RBC) [Ratio]Ordered By: Griselda Hastings on 03-30-2023 Erythrocyte distribution width (RBC) [Ratio] 14.1 % 12.0-14.8 [facility] Globulin Calc (S) [Mass/Vol] Ordered By: Griselda Hastings on 03-30-2023 Globulin (S) [Mass/Vol] 1.9 g/dL [facility] Glucose [Mass/volume] in Ser um or PlasmaOrdered By: Griselda Hastings on 03-30-2023 Glucose [Mass/Vol] 83 mg/dL 70-100 [facility] Comment on above: ADA recommended refe rence rangeRandom Glucose Reference Range is dependent on time and content of last meal. Glucose of more than 200 mg/dL in a nonstressed, ambulatory subject supports the diagnosis of Diabetes Mellitus. Hematocrit Auto (Bld) [Volum e fraction]Ordered By: Griselda Hastings on 03-30-2023 Hematocrit (Bld) [Volume fraction] 41.4 % 38.8-50.0 [facility] Hemoglobin [Mass/volume] in BloodOrdered By: Griselda Hastings on 03-30-2023 Hemoglobin (Bld) [Mass/Vol] 14.4 g/dL 13.0-17.0 [facility] Leukocytes [#/volume] correc mone for nucleated erythrocytes in Blood by Automated counOrdered By: Griselda Hastings on 03-30-2023 WBC corrected for nucl RBC Auto (Bld) [#/Vol] 10.0 10*3/uL 4.1-10.5 [facility] Lymphocytes Auto (Bld) [#/Vo l]Ordered By: Griselda Hastings on 03-30-2023 Lymphocytes (Bld) [#/Vol] 1.7 10*3/uL 1.00-4.8 [facility] Lymphocytes/100 WBC Auto (Bl d)Ordered By: Griselda Hastings on 03-30-2023 Lymphocytes/100 WBC (Bld) 16.8 % . [facility] MCH Auto (RBC) [Entitic mass ]Ordered By: Griselda Hastings on 03-30-2023 MCH (RBC) [Entitic mass] 33.9 pg 27.5-35.2 [facility] MCHC Auto (RBC) [Mass/Vol]Or dered By: Griselda Hastings on 03-30-2023 MCHC (RBC) [Mass/Vol] 34.9 g/dL 32.5-35.6 [facility] MCV Auto (RBC) [Entitic vol] Ordered By: Griselda Hastings on 03-30-2023 MCV (RBC) [Entitic vol] 97.1 fL 83.5-101 [facility] Monocytes Auto (Bld) [#/Vol] Ordered By: Griselda Hastings on 03-30-2023 Monocytes (Bld) [#/Vol] 0.8 10*3/uL 0.0-0.8 [facility] Monocytes/100 WBC Auto (Bld) Ordered By: Griselda Hastings on 03-30-2023 Monocytes/100 WBC (Bld) 8.0 % . [facility] Neutrophils Auto (Bld) [#/Vo l]Ordered By: Griselda Hastings on 03-30-2023 Neutrophils (Bld) [#/Vol] 7.3 10*3/uL 1.8-7.7 [facility] Neutrophils/100 WBC Auto (Bl d)Ordered By: Griselda Hastings on 03-30-2023 Neutrophils/100 WBC (Bld) 73.8 % . [facility] No Panel InformationOrdered By: Griselda Hastings on 03-30-2023 Estimated GFR (CKD-EPI) > 60.0 mL/Min [facility] Creatinine Clearance (Chem N/A [facility] Nucleated erythrocytes [Pres ence] in Blood by Automated countOrdered By: Griselda Hastings on 03-30-2023 Nucleated RBC Auto Ql (Bld) 0.1 /100{WBC} 0-0.5 [facility] Platelet mean volume Auto (B ld) [Entitic vol]Ordered By: Griselda Hastings on 03-30-2023 Platelet mean volume (Bld) [Entitic vol] 9.2 fL 6.6-10.1 [facility] Platelets Auto (Bld) [#/Vol] Ordered By: Griselda Hastings on 03-30-2023 Platelets (Bld) [#/Vol] 221 10*3/uL 150-450 [facility] Potassium [Moles/volume] in Serum or PlasmaOrdered By: Griselda Hastings on 03-30-2023 Potassium [Moles/Vol] 4.1 mmol/L 3.5-5.1 [facility] Protein [Mass/volume] in Ser um or PlasmaOrdered By: Griselda Hastings on 03-30-2023 Protein [Mass/Vol] 6.1 g/dL 6.4-8.9 [facility] RBC Auto (Bld) [#/Vol]Ordere d By: Griselda Hastings on 03-30-2023 RBC (Bld) [#/Vol] 4.26 10*6/uL 3.90-5.60 [facility] Serum or plasma albumin/glob ulin mass ratioOrdered By: Griselda Hastings on 03-30-2023 Albumin/Globulin [Mass ratio] 2.2 {ratio} [facility] Serum or plasma anion gap de terminationOrdered By: Griselda Hastings on 03-30-2023 Anion gap [Moles/Vol] 12.1 mmol/L 6.0-15.0 [facility] Serum or plasma high density lipoprotein (HDL) cholesterol measurementOrdered By: Griselda Hastings on 03-30-2023 Cholesterol in HDL [Mass/Vol] 44 mg/dL 23-92 [facility] Comment on above: HDL CHOL ATP-III CLA SSIFICATION Cardiovascular RiskHDL > or equal to 60 mg/dL LOWHDL < 40 mg/dL HIGH Serum or plasma total choles terol/high density lipoprotein (HDL) cholesterol mass ratOrdered By: Griselda Hastings on 03-30-2023 Cholesterol.total/Chol esterol in HDL [Mass ratio] 5.1 {ratio} <5.0 [facility] Sodium [Moles/volume] in Ser um or PlasmaOrdered By: Griselda Hastings on 03-30-2023 Sodium [Moles/Vol] 138 mmol/L 136-145 [facility] Thyrotropin [Units/volume] i n Serum or PlasmaOrdered By: Griselda Hastings on 03-30-2023 TSH Qn 0.93 m[IU]/L 0.45-5.33 [facility] Triglyceride [Mass/volume] i n Serum or PlasmaOrdered By: Griselda Hastings on 03-30-2023 Triglyceride [Mass/Vol] 159 mg/dL 0-149 [facility] Comment on above: TRIG ATP III CLASSIF ICATIONTRIG less than 150 mg/dL NormalTRIG 150-199 mg/dL Borderline highTRIG 200-500 mg/dL High TRIG greater than 500 mg/dL Very highStandard traceable to the Center for Disease Conrtrol and Prevention (CDC) test method. Urea nitrogen [Mass/volume] in Serum or PlasmaOrdered By: Griselda Hastings on 03-30-2023 Urea nitrogen [Mass/Vol] 10 mg/dL 7-25 [facility] WBC Auto (Bld) [#/Vol]Ordere d By: Griselda Hastings on 03-30-2023 WBC (Bld) [#/Vol] 10.0 10*3/uL 4.1-10.5 [facility] COVID-19 SOFIAOrdered By: Brandyn Gaytan on 02-26-2023 SARS-CoV+SARS-CoV-2 (COVID-19) Ag IA.rapid Ql (Resp) Negative Negative [facility] Comment on above: This is a duplicate Anna SARS Antigen (JAMILA) result to be used for statistical tracking purpose only. No Panel InformationOrdered By: Daniel Mimsmond on 02-26-2023 SARS Antigen (LFIA) [facility] SARS Antigen (LFIA) [facility] No Panel Informationon 12-28 XR Pain Management C ase (Reference Range: not available) *FINAL Date of Service: 12/28/2022 08:49 Adm #: [id number] Reading Dr:RICARDO CAPPS Signoff Dr: RICARDO CAPPS PROCEDURE: PAIN MANAGEMENT CASE - BXR 0999 REASON FOR EXAM: SPONDYLOSIS W/O MYELOPATHY OR RADICULOPATHY, CERVICAL REGION RESULT: Patient Name: SHANTEL MELENDEZ STUDY: PAIN MANAGEMENT CASE INDICATION: SPONDYLOSIS W/O MYELOPATHY OR RADICULOPATHY, CERVICAL REGION COMPARISON: None. ACCESSION NUMBER(S): [id number] ORDERING CLINICIAN: LIMA JOSEPH TECHNIQUE: See below: FINDINGS: Fluoroscopy was provided during therapeutic puncture in the region of the cervical spine for pain management. Total fluoroscopy time: 14.56mgy, images: 4. IMPRESSION: Fluoroscopy for pain management. Dictation workstation: [id number] Original Interpreting Physician: RICARDO CAPPS M.D. Original Transcribed by/Date: MMODAL Dec 28 2022 6:14A Original Electronically Signed by/Date: RICARDO CAPPS M.D. Dec 28 2022 9:04A Addendum Interpreting Physician: Addendum Transcribed by/Date: NO ADDENDUM Addendum Electronically Signed by/Date: [facility] [place] Quick Strepon 12-05-2022 S. pyogenes Org specific cx Ql (Throat) Negative [employer] Other Quick Strep [employer] Other CT Chest W contrast Tristin IMPRESSION: [...] any questions regarding this interpretation, please call [phone]. If you are unable to reach us at the number above, please feel free [phone][facility] DIVISION OF RADIOLOGY * * *Final Report* * * DATE OF EXAM: Oct 27 2022 11:44AM [facility] 0539 - CT CHEST [...] No abnormality in the imaged upper abdomen. Partition Assembler (topogram) images: No additional findings. DIVISION OF RADIOLOGY Provider, [facility] - 10/30/2022 * * *Final Report* * * DATE OF EXAM: Oct 27 2022 11:44AM [facility] 0539 - CT CHEST [...] No abnormality in the imaged upper abdomen. Partition Assembler (topogram) images: No additional findings. IMPRESSION IMPRESSION: [...] any questions regarding this interpretation, please call [phone]. If you are unable to reach us at the number above, please feel free to contact [facility] eRadiology at [phone]. [facility] CBC W Auto Differential pane l (Bld)on 10-27-2022 Basophils (Bld) [#/Vol] 0.03 10*3/uL [facility] Basophils/100 WBC (Bld) 0.3 % [facility] Differential cell count method Nom (Bld) Auto [facility] Eosinophils (Bld) [#/Vol] 0.06 10*3/uL [facility] Eosinophils/100 WBC (Bld) 0.7 % [facility] Immature granulocytes (Bld) [#/Vol] 0.03 10*3/uL [facility] Immature granulocytes/100 WBC (Bld) [...] [facility] Center Monocytes (Bld) [#/Vol] 0.53 10*3/uL [facility] Monocytes/100 WBC (Bld) 5.8 % [facility] Neutrophils (Bld) [#/Vol] 6.47 10*3/uL [facility] Neutrophils/100 WBC (Bld) 71.0 % [facility] Nucleated RBC (Bld) [#/Vol] [facility] [...] WBC (Bld) [#/Vol] 9.12 10*3/uL [facility] CT Neck W contrast Tristin 05- IMPRESSION: Primary NIRADS Category: 1. Expected post-treatment changes in the neck without evidence of recurrent disease in the primary site. Neck NIRADS Category: 1. No evidence of abnormal lymph nodes. [email or web address] Transcribe Date/Time: Oct 27 2022 11:56A Dictated by: KALPANA HAMPTON MD This examination was interpreted and the report reviewed and electronically signed by: KALPANA HAMPTON MD on Oct 27 2022 12:14PM EST Thank you for allowing us to participate in the care of your patient. Should there be any questions regarding this interpretation, please call [phone]. If you are unable to reach us at the number above, please feel free to contact [facility] eRadiology at [phone]. 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 Parotid and submandibular spaces are normal. Fishing Tool Supervisor spaces appear normal. Infrahyoid Neck: Hypopharynx, larynx, [...] consolidation or mass. 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 Parotid and submandibular spaces are normal. Fishing Tool Supervisor spaces appear normal. Infrahyoid Neck: Hypopharynx, larynx, [...] evidence of abnormal lymph nodes. [email or web address] Transcribe Date/Time: Oct 27 2022 11:56A Dictated by: KALPANA HAMPTON MD This examination was interpreted and the report reviewed and electronically signed by: KALPANA HAMPTON MD on Oct 27 2022 12:14PM EST Thank you for allowing us to participate in the care of your patient. Should there be any questions regarding this interpretation, please call [phone]. If you are unable to reach us at the number above, please feel free to contact [facility] eRadiology at [phone]. [facility] CT Neck W contrast IVOrdered By: [facility] Provider on 10-27-2022 [facility] Comment on above: The [place] Diabete s Association (ADA) provides guidance for [...] Standards of Medical Care in Diabetes 2016, [place] Diabetes Association. Diabetes Care. 2016.39(Suppl 1). Interpretation [...] [Mass/Vol] 12 mg/dL 9 - 24 mg/dL [facility] No Panel Informationon 10-27 Radiology Study observation (narrative) [facility] Alanine aminotransferase [En zymatic activity/volume] in Serum or PlasmaOrdered By: Griselda Hastings on 10-24-2022 ALT [Catalytic activity/Vol] 7 U/L 7-52 [facility] Albumin [Mass/volume] in Ser um or Plasma by Bromocresol green (BCG) dye binding methoOrdered By: Griselda Hastings on 10-24-2022 Albumin BCG dye [Mass/Vol] 4.2 g/dL 3.5-5.7 [facility] Alkaline phosphatase [Enzyma tic activity/volume] in Serum or PlasmaOrdered By: Griselda Hastings on 10-24-2022 ALP [Catalytic activity/Vol] 76 U/L 34-104 [facility] Aspartate aminotransferase [ Enzymatic activity/volume] in Serum or PlasmaOrdered By: Griselda Hastings on 10-24-2022 AST [Catalytic activity/Vol] 10 U/L 13-39 [facility] Basophils Auto (Bld) [#/Vol] Ordered By: Griselda Hastings on 10-24-2022 Basophils (Bld) [#/Vol] 0.0 10*3/uL 0.0-0.2 [facility] Basophils/100 WBC Auto (Bld) Ordered By: Griselda Hastings on 10-24-2022 Basophils/100 WBC (Bld) 0.9 % . [facility] Bilirubin.total [Mass/volume ] in Serum or PlasmaOrdered By: Griselda Hastings on 10-24-2022 Bilirubin [Mass/Vol] 0.4 mg/dL 0.3-1.0 [facility] Calcium [Mass/volume] in Ser um or PlasmaOrdered By: Griselda Hastings on 10-24-2022 Calcium [Mass/Vol] 9.1 mg/dL 8.6-10.3 [facility] Carbon dioxide, total [Moles /volume] in Serum or PlasmaOrdered By: Griselda Hastings on 10-24-2022 CO2 [Moles/Vol] 28.3 mmol/L 21.0-31.0 [place] Chloride [Moles/volume] in S r[place] or PlasmaOrdered By: Griselda Hastings on 10-24-2022 Chloride [Moles/Vol] 105 mmol/L 98-107 [facility] Cholesterol [Mass/volume] in Serum or PlasmaOrdered By: Griselda Hastings on 10-24-2022 Cholesterol [Mass/Vol] 240 mg/dL 140-200 [facility] Comment on above: Chol less than 200 m g/dl low riskChol 201-239 mg/dl borderline riskChol 240 mg/dl and greater high risk Cholesterol in LDL Calc [Mas s/Vol]Ordered By: Griselda Hastings on 10-24-2022 Cholesterol in LDL [Mass/Vol] 169 mg/dL 0-100 [facility] Comment on above: LDL ATP III CLASSIFI CATIONLDL less than 100 mg/dL OptimalLDL 100-129 mg/dL Near or above optimalLDL 130-159 mg/dL Borderline highLDL 160-189 mg/dL HighLDL greater than 189 mg/dL Very high Cholesterol in VLDL Calc [Ma ss/Vol]Ordered By: Griselda Hastings on 10-24-2022 Cholesterol in VLDL [Mass/Vol] 35 mg/dL [facility] Creatinine [Mass/volume] in Serum or PlasmaOrdered By: Griselda Hastings on 10-24-2022 Creatinine [Mass/Vol] 0.88 mg/dL 0.70-1.30 [facility] Eosinophils Auto (Bld) [#/Vo l]Ordered By: Griselda Hastings on 10-24-2022 Eosinophils (Bld) [#/Vol] 0.1 10*3/uL 0.0-0.45 [facility] Eosinophils/100 WBC Auto (Bl d)Ordered By: Griselda Hastings on 10-24-2022 Eosinophils/100 WBC (Bld) 2.0 % . [facility] Erythrocyte distribution wid th Auto (RBC) [Ratio]Ordered By: Griselda Hastings on 10-24-2022 Erythrocyte distribution width (RBC) [Ratio] 14.7 % 12.0-14.8 [facility] Globulin Calc (S) [Mass/Vol] Ordered By: Griselda Hastings on 10-24-2022 Globulin (S) [Mass/Vol] 2.1 g/dL [facility] Glucose [Mass/volume] in Ser um or PlasmaOrdered By: Griselda Hastings on 10-24-2022 Glucose [Mass/Vol] 82 mg/dL 70-100 [facility] Comment on above: ADA recommended refe rence rangeRandom Glucose Reference Range is dependent on time and content of last meal. Glucose of more than 200 mg/dL in a nonstressed, ambulatory subject supports the diagnosis of Diabetes Mellitus. Hematocrit Auto (Bld) [Volum e fraction]Ordered By: Griselda Hastings on 10-24-2022 Hematocrit (Bld) [Volume fraction] 43.4 % 38.8-50.0 [facility] Hemoglobin [Mass/volume] in BloodOrdered By: Griselda Hastings on 10-24-2022 Hemoglobin (Bld) [Mass/Vol] 14.5 g/dL 13.0-17.0 [facility] Leukocytes [#/volume] correc mone for nucleated erythrocytes in Blood by Automated counOrdered By: Griselda Hastings on 10-24-2022 WBC corrected for nucl RBC Auto (Bld) [#/Vol] 5.0 10*3/uL 4.1-10.5 [facility] Lymphocytes Auto (Bld) [#/Vo l]Ordered By: Griselda Hastings on 10-24-2022 Lymphocytes (Bld) [#/Vol] 2.0 10*3/uL 1.00-4.8 [facility] Lymphocytes/100 WBC Auto (Bl d)Ordered By: Griselda Hastings on 10-24-2022 Lymphocytes/100 WBC (Bld) 39.8 % . [facility] MCH Auto (RBC) [Entitic mass ]Ordered By: Griselda Hastings on 10-24-2022 MCH (RBC) [Entitic mass] 31.5 pg 27.5-35.2 [facility] MCHC Auto (RBC) [Mass/Vol]Or dered By: Griselda Hastings on 10-24-2022 MCHC (RBC) [Mass/Vol] 33.5 g/dL 32.5-35.6 [facility] MCV Auto (RBC) [Entitic vol] Ordered By: Griselda Hastings on 10-24-2022 MCV (RBC) [Entitic vol] 94.0 fL 83.5-101 [facility] Monocytes Auto (Bld) [#/Vol] Ordered By: Griselda Hastings on 10-24-2022 Monocytes (Bld) [#/Vol] 0.3 10*3/uL 0.0-0.8 [facility] Monocytes/100 WBC Auto (Bld) Ordered By: Griselda Hastings on 10-24-2022 Monocytes/100 WBC (Bld) 5.4 % . [facility] Neutrophils Auto (Bld) [#/Vo l]Ordered By: Griselda Hastings on 10-24-2022 Neutrophils (Bld) [#/Vol] 2.6 10*3/uL 1.8-7.7 [facility] Neutrophils/100 WBC Auto (Bl d)Ordered By: Griselda Hastings on 10-24-2022 Neutrophils/100 WBC (Bld) 51.9 % . [facility] No Panel InformationOrdered By: Griselda Hastings on 10-24-2022 Estimated GFR (CKD-EPI) > 60.0 mL/Min [facility] Creatinine Clearance (Chem N/A [facility] Nucleated erythrocytes [Pres ence] in Blood by Automated countOrdered By: Griselda Hastings on 10-24-2022 Nucleated RBC Auto Ql (Bld) 0.1 /100{WBC} 0-0.5 [facility] Platelet mean volume Auto (B ld) [Entitic vol]Ordered By: Griselda Hastings on 10-24-2022 Platelet mean volume (Bld) [Entitic vol] 9.6 fL 6.6-10.1 [facility] Platelets Auto (Bld) [#/Vol] Ordered By: Griselda Hastings on 10-24-2022 Platelets (Bld) [#/Vol] 247 10*3/uL 150-450 [facility] Potassium [Moles/volume] in Serum or PlasmaOrdered By: Griselda Hastings on 10-24-2022 Potassium [Moles/Vol] 4.0 mmol/L 3.5-5.1 [facility] Prostate specific Ag [Mass/v olume] in Serum or PlasmaOrdered By: Griselda Hastings on 10-24-2022 Prostate specific Ag [Mass/Vol] 0.370 ng/mL 0.000-4.00 0 [facility] [facility] Protein [Mass/volume] in Ser um or PlasmaOrdered By: Griselda Hastings on 10-24-2022 Protein [Mass/Vol] 6.3 g/dL 6.4-8.9 [facility] RBC Auto (Bld) [#/Vol]Ordere d By: Griselda Hastings on 10-24-2022 RBC (Bld) [#/Vol] 4.61 10*6/uL 3.90-5.60 [facility] Serum or plasma albumin/glob ulin mass ratioOrdered By: Griselda Hastings on 10-24-2022 Albumin/Globulin [Mass ratio] 2.0 {ratio} [facility] Serum or plasma anion gap de terminationOrdered By: Griselda Hastings on 10-24-2022 Anion gap [Moles/Vol] 11.7 mmol/L [facility] Serum or plasma high density lipoprotein (HDL) cholesterol measurementOrdered By: Griselda Hastings on 10-24-2022 Cholesterol in HDL [Mass/Vol] 36 mg/dL 29- [facility] Comment on above: HDL CHOL ATP-III CLA SSIFICATION Cardiovascular RiskHDL > or equal to 60 mg/dL LOWHDL < 40 mg/dL HIGH Serum or plasma total choles terol/high density lipoprotein (HDL) cholesterol mass ratOrdered By: Griselda Hastings on 10-24-2022 Cholesterol.total/Chol esterol in HDL [Mass ratio] 6.7 {ratio} <5.0 [facility] Sodium [Moles/volume] in Ser um or PlasmaOrdered By: Griselda Hastings on 10-24-2022 Sodium [Moles/Vol] 141 mmol/L 136-145 [facility] Thyrotropin [Units/volume] i n Serum or PlasmaOrdered By: Griselda Hastings on 10-24-2022 TSH Qn 1.26 m[IU]/L 0.45-5.33 [facility] Triglyceride [Mass/volume] i n Serum or PlasmaOrdered By: Griselda Hastings on 10-24-2022 Triglyceride [Mass/Vol] 175 mg/dL 0-149 [facility] Comment on above: TRIG ATP III CLASSIF ICATIONTRIG less than 150 mg/dL NormalTRIG 150-199 mg/dL Borderline highTRIG 200-500 mg/dL High TRIG greater than 500 mg/dL Very highStandard traceable to the Center for Disease Conrtrol and Prevention (CDC) test method. Urea nitrogen [Mass/volume] in Serum or PlasmaOrdered By: Griselda Hastings on 10-24-2022 Urea nitrogen [Mass/Vol] 15 mg/dL 7- [facility] WBC Auto (Bld) [#/Vol]Ordere d By: Griselda Hastings on 10-24-2022 WBC (Bld) [#/Vol] 5.0 10*3/uL 4.1-10.5 [facility] BRIEF OP NOTon 09-28-2022 BRIEF OP NOT HNO ID: [id number] Author: Flores Cat APRN.CNP Service: Interventional Radiology Author Type: Nurse Practitioner Type: Brief Op Note Filed: 09/28/2022 3:14 PM Note Text: BRIEF OPERATIVE / PROCEDURE NOTE LOG ID: [id number] SURGERY/PROCEDURE DATE: 09/28/2022 INCISION/PROCEDURE START TIME: 1:58 PM INCISION CLOSE/PROCEDURE END TIME: 2:27 PM SURGEON(S)/PROCEDURALIST( S) AND EMPLOYEE RELATIONS CONSULTANT(S): Surgeon(s) and Role: * Flores Cat APRN.AUDIOVISUAL EQUIPMENT OPERATOR - Primary No Additional Staff SURGERY/PROCEDURE(S): [...] DATE: September 28, 2022 TIME: 3:10 PM [facility] IR LUMBAR PUNCTURE DIAGon IR LUMBAR PUNCTURE DIAG * * *Final Report* * * DATE OF EXAM: Sep 28 2022 2:41PM [facility] [id number] - IR LUMBAR PUNCTURE DIAG [...] guidance was performed in conjunction with the surveying technician. Plane A, Air Kerma: 20.0 mGy Dose Area Product (DAP): 53313.1 mGy*cm2 Fluoro time: 3:54 min: sec Post-Procedure: [...] procedure was performed by: Flores Cat APRN.CNP Emergency Registrar: HARPER Transcribe Date/Time: Sep 28 2022 3:15P Dictated by : FLORES CAT CNP This examination was interpreted and the report reviewed and electronically signed by: FLORES CAT CNP on Sep 28 2022 3:22PM EST [id number] [facility] NURSING PROGon 09-28-2022 NURSING PROG HNO ID: [id number] Author: Court Magana RN Service: Nursing Author [...] Care Provider Electronically Signed By: Court Magana [facility] MRI BRAIN WO/W IVCONon 09-22 [facility] COVID + FLU Quick Testingon 08-01-2022 SARS-CoV-2 (COVID-19) RNA JER+probe Ql (Unsp spec) Negative [employer] Other COVID + FLU Quick Testing neagative [employer] Other COVID + FLU Quick Testing Negative [employer] Other RSVon 08-01-2022 RSV Ag IA Ql (Unsp spec) Positive [facility] [employer] Other Cerebrospinal fluid post-valdez trifugation appearance determinationOrdered By: Oziel Cadena on 07-17-2022 Appearance (Spun CSF) Colorless Colorless [facility] Cerebrospinal fluid sample t ube volume measurementOrdered By: Oziel Cadena on 07-17-2022 Specimen volume (CSF) 22.0 mL [facility] Color CSFOrdered By: Oziel Cadena on 07-17-2022 Color (CSF) Colorless Colorless [facility] Manual cerebrospinal fluid e rythrocytes count (number/volume)Ordered By: Oziel Cadena on 07-17-2022 RBC Manual cnt (CSF) [#/Vol] 0 /uL [facility] Comment on above: The reference interv al and other method performance specifications have not been established for this body fluid. The test result must be integrated into the clinical context for interpretation. No Panel InformationOrdered By: Oziel Cadena on 07-17-2022 CSF Appearance Clear Clear [facility] CSF Tube Number Tube number: 1 [facility] Nucleated cells [#/volume] i n Cerebral spinal fluid by Manual countOrdered By: Oziel Cadena on 07-17-2022 Nucleated cells Manual cnt (CSF) [#/Vol] 0.003 10*3/uL 0-5 [facility] Activated partial thrombopla stin time (aPTT) in platelet poor plasma by coagulation aOrdered By: Loi Wong on 04-16-2022 aPTT Coag (PPP) [Time] 32.8 s 25.1-36.5 [facility] Basophils Auto (Bld) [#/Vol] Ordered By: Loi Wong on 04-16-2022 Basophils (Bld) [#/Vol] 0.1 10*3/uL 0.0-0.2 [facility] Basophils/100 WBC Auto (Bld) Ordered By: Loi Wong on 04-16-2022 Basophils/100 WBC (Bld) 1.2 % . [facility] Creatine kinase [Enzymatic a ctivity/volume] in Serum or PlasmaOrdered By: Loi Wong on 04-16-2022 CK [Catalytic activity/Vol] 69 U/L 22-269 [facility] Creatinine and Glomerular fi ltration rate.predicted panel (S/P/Bld)Ordered By: Loi Wong on 04-16-2022 Creatinine [Mass/Vol] 0.97 mg/dL 0.64-1.27 [facility] Eosinophils Auto (Bld) [#/Vo l]Ordered By: Loi Wong on 04-16-2022 Eosinophils (Bld) [#/Vol] 0.1 10*3/uL 0.0-0.45 [facility] Eosinophils/100 WBC Auto (Bl d)Ordered By: Loi Wong on 04-16-2022 Eosinophils/100 WBC (Bld) 1.2 % . [facility] Erythrocyte distribution wid th Auto (RBC) [Ratio]Ordered By: Loi Wong on 04-16-2022 Erythrocyte distribution width (RBC) [Ratio] 14.1 % 12.0-14.8 [facility] Estimated glomerular filtrat ion rate (GFR) non- AmericanOrdered By: Loi Wong on 04-16-2022 GFR/1.73 sq M.predicted among non-blacks MDRD (S/P/Bld) [Vol rate/Area] > 60 mL/Min [facility] Hematocrit Auto (Bld) [Volum e fraction]Ordered By: Loi Wong on 04-16-2022 Hematocrit (Bld) [Volume fraction] 43.2 % 38.8-50.0 [facility] Hemoglobin [Mass/volume] in BloodOrdered By: Loi Wong on 04-16-2022 Hemoglobin (Bld) [Mass/Vol] 14.7 g/dL 13.0-17.0 [facility] Laboratory - Chemistry and C hemistry - challengeOrdered By: Loi Wong on 04-16-2022 Natriuretic peptide B (Bld) [Mass/Vol] 29.0 pg/mL 5-100 [facility] Laboratory - CoagulationOrde red By: Loi Wong on 04-16-2022 PT Coag (PPP) [Time] 12.0 s 9.0-12.9 [facility] Laboratory - Hematology and Cell countsOrdered By: Loi Wong on 04-16-2022 Nucleated RBC/100 WBC (Bld) [Ratio] 0.1 % 0-0.5 [facility] Leukocytes [#/volume] in Blo od by Automated countOrdered By: Loi Wong on 04-16-2022 WBC (Bld) [#/Vol] 7.7 10*3/uL 4.5-11.0 [facility] Lymphocytes Auto (Bld) [#/Vo l]Ordered By: Loi Wong on 04-16-2022 Lymphocytes (Bld) [#/Vol] 2.3 10*3/uL 1.00-4.8 [facility] Lymphocytes/100 WBC Auto (Bl d)Ordered By: Loi Wong on 04-16-2022 Lymphocytes/100 WBC (Bld) 29.4 % . [facility] MCH Auto (RBC) [Entitic mass ]Ordered By: Loi Wong on 04-16-2022 MCH (RBC) [Entitic mass] 32.0 pg 27.5-35.2 [facility] MCHC Auto (RBC) [Mass/Vol]Or dered By: Loi Wong on 04-16-2022 MCHC (RBC) [Mass/Vol] 34.0 g/dL 32.5-35.6 [facility] MCV Auto (RBC) [Entitic vol] Ordered By: Loi Wong on 04-16-2022 MCV (RBC) [Entitic vol] 94.0 fL 83.5-101 [facility] Monocytes Auto (Bld) [#/Vol] Ordered By: Loi Wong on 04-16-2022 Monocytes (Bld) [#/Vol] 0.6 10*3/uL 0.0-0.8 [facility] Monocytes/100 WBC Auto (Bld) Ordered By: Loi Wong on 04-16-2022 Monocytes/100 WBC (Bld) 7.7 % . [facility] Neutrophils Auto (Bld) [#/Vo l]Ordered By: Loi Wong on 04-16-2022 Neutrophils (Bld) [#/Vol] 4.7 10*3/uL 1.8-7.7 [facility] Neutrophils/100 WBC Auto (Bl d)Ordered By: Loi Wong on 04-16-2022 Neutrophils/100 WBC (Bld) 60.5 % . [facility] No Panel InformationOrdered By: Loi Wong on 04-16-2022 D-Dimer Quantitative (PE/DVT) < 200 ng/mL 0-243 [facility] Comment on above: The reference range [...] conditions. Estimated GFR () > 60 mL/Min [facility] Comment on above: GFR estimated refere nce range: According to KDOQI guidelines, <60 ml/min/1.73m2 is sufficient to diagnose a patient with chronic kidney disease. Pharmacy Creatinine Clearance (Chem 79.33 [facility] Platelet mean volume Auto (B ld) [Entitic vol]Ordered By: Loi Wong on 04-16-2022 Platelet mean volume (Bld) [Entitic vol] 9.7 fL 6.6-10.1 [facility] Platelet poor plasma interna tional normalized ratio (INR) by coagulation assay (relatOrdered By: Loi Wong on 04-16-2022 INR Coag (PPP) [Relative time] 1.1 {INR} [facility] Comment on above: INR Therapeutic Rang [...] 04-16-2022 Platelets (Bld) [#/Vol] 238 10*3/uL 150-450 [facility] RBC Auto (Bld) [#/Vol]Ordere d By: Loi Wong on 04-16-2022 RBC (Bld) [#/Vol] 4.59 10*6/uL 3.90-5.60 [facility] Serum or plasma anion gap de terminationOrdered By: Loi Wong on 04-16-2022 Anion gap [Moles/Vol] 12.4 mmol/L 6.0-15.0 [facility] Serum or plasma calcium paramjit urement (mass/volume)Ordered By: Loi Wong on 04-16-2022 Calcium [Mass/Vol] 9.0 mg/dL 8.2-10.2 [facility] Serum or plasma chloride robby surement (moles/volume)Ordered By: Loi Wong on 04-16-2022 Chloride [Moles/Vol] 103 mmol/L 95-114 [facility] Serum or plasma creatine kin ase MB (CKMB)/total creatine kinase (CK) ratio by calculaOrdered By: Loi Wong on 04-16-2022 CK.MB Calc [Catalytic fraction] 2.0 % 0.00-2.50 [facility] Serum or plasma creatine kin ase MB measurement (mass/volume)Ordered By: Loi Wong on 04-16-2022 CK.MB [Mass/Vol] 1.4 ng/mL 0.6-6.3 [place] Serum or plasma glucose paramjit urement (mass/volume)Ordered By: Loi Wong on 04-16-2022 Glucose [Mass/Vol] 88 mg/dL 70-100 [facility] Comment on above: ADA recommended refe rence rangeRandom Glucose Reference Range is dependent on time and content of last meal. Glucose of more than 200 mg/dL in a nonstressed, ambulatory subject supports the diagnosis of Diabetes Mellitus. Serum or plasma potassium me asurement (moles/volume)Ordered By: Loi Wong on 04-16-2022 Potassium [Moles/Vol] 4.3 mmol/L 3.5-5.1 [facility] Serum or plasma sodium measu rement (moles/volume)Ordered By: Loi Wong on 04-16-2022 Sodium [Moles/Vol] 135 mmol/L 136-146 [facility] Serum or plasma total carbon dioxide measurement (moles/volume)Ordered By: Loi Wong on 04-16-2022 CO2 [Moles/Vol] 23.9 mmol/L 22.0-30.0 [place] Serum or plasma urea nitroge n measurement (mass/volume)Ordered By: Loi Wong on 04-16-2022 Urea nitrogen [Mass/Vol] 12 mg/dL 03-10 [facility] Troponin I.cardiac [Mass/vol ume] in Serum or Plasma by High sensitivity methodOrdered By: Loi Wong on 04-16-2022 Troponin I.cardiac High sensitivity method [Mass/Vol] 5 pg/mL 0 [facility] COVID Quick Testingon 2021 Result Negative [facility] [employer] Other Quick Fluon 03-16-2022 FLUAV Ab CF (S) [Titer] Negative [employer] Other FLUBV Ab CF (S) [Titer] Negative [employer] Other MRI Brain w/o + w/on 022 [...] Count + Differential, CSF 70 1 [facility] [employer] Work Phone: [phone] Cell Count + Differential, CSF 10 % [facility] [employer] Work Phone: [phone] Cell Count + Differential, CSF 60 % [facility] [employer] Work Phone: [phone] Cell Count + Differential, CSF 30 % [facility] [employer] Work Phone: [phone] Cell Count + Differential, CSF Colorless COLORLESS [facility] Work Phone: [phone] Cell Count + Differential, CSF 245 /uL above high threshold 0 - 5 [facility] [employer] Work Phone: [phone] Cell Count + Differential, CSF Tube 1 [facility] [employer] Work Phone: [phone] Cell Count + Differential, CSF Clear CLEAR [facility] [employer] Work Phone: [phone] Cult, CSF, includes smearon 11-07-2021 Bacteria identified Cx Nom (CSF) [facility] [employer] Work Phone: [phone] Laboratoryon 11-07-2021 Albumin [...] Phone: [phone] Albumin [Mass/Vol] 4578 mg/dL 7810-3368 [facility] Work Phone: [phone] IgG (CSF) [Mass/Vol] 2.2 mg/dL 0.0-6.0 [facility] Work Phone: [phone] IgG [Mass/Vol] 496 mg/dL below low threshold 768-1632 [facility] [employer] Work Phone: [phone] Comment on above: REFERENCE INTERVAL: Immunoglobulin GAccess complete set of age- and/or gender-specific reference intervals for this test in the [facility] Test Directory ([employer]). IgG clearance/Albumin clearance (S+CSF) [Ratio] 0.56 {ratio} 0.28-0.66 [facility] Work Phone: [phone] IgG synthesis rate Calc (S+CSF) [Mass/Time] 0.5 mg/d <=8.0 [facility] [employer] Work Phone: [phone] IgG/Albumin (CSF) [Mass [...] sclerosis will have a negative result.Performed By: [employer] [facility] [employer] [facility] [place] [id number] Director: Paula Middleton MD Albumin (CSF) [Mass/Vol] [...] 2 Path Review, CSF JIMBO [facility] Work Phone: Comment on above: By her/his signature above, the Pathologist listed as making the final interpretation certifies that she/he has personally reviewed this case. HEMORRHAGIC SPECIMEN, NO MALIGNANT CELLS IDENTIFIED. 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 In [...] He saw Dr. Ba a neurologist in [facility]. He describes his vision as [...] MG Oral Tablet Vitals Vital Signs Recorded: [id number] 09:38AM Debclbmavur13.2 F Heart Rate63 Stroczgqglb98 Ldooefxl908 Jviwlnwxu33 Blood Pressure Cuff SizeAdult Height5 ft 7.13 in Ghphbp432 lb 6 oz BMI Gtqjymcwnr05.05 kg/m2 BSA Calculated1.91 Tobacco Usea) Yes Fall Screeninga) No falls within the last year O2 Jduruvzbcg94 Pain Scale7 Physical Exam Constitutional - General appearance: No acute distress, well de (more content not included)... 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 In [...] He saw Dr. Ba a neurologist in [facility]. He describes his vision as [...] MG Oral Tablet Vitals Vital Signs Recorded: 89Okl1163 09:38AM Pgcahzwkwdt25.2 F Heart Rate63 Jftkhlmhemg23 Wkedrpoa095 Hsplrdwlc17 Blood Pressure Cuff SizeAdult Height5 ft 7.13 in Wkknba212 lb 6 oz BMI Kilnqeaqly78.05 kg/m2 BSA Calculated1.91 Tobacco Usea) Yes Fall Screeninga) No falls within the last year O2 Asewploafo41 Pain Scale7 Ph (more content not included)... Normal [employer] CBC W Auto Differential pane l (Bld)on 10-06-2021 Basophils (Bld) [#/Vol] 0.06 10*3/uL [facility] Basophils/100 WBC (Bld) 0.8 % [facility] Differential cell count method Nom (Bld) Auto [facility] Eosinophils (Bld) [#/Vol] 0.11 10*3/uL [facility] Eosinophils/100 WBC (Bld) 1.5 % [facility] Immature granulocytes (Bld) [#/Vol] [facility] Immature granulocytes/100 WBC (Bld) [...] Cancer Center Monocytes (Bld) [#/Vol] 0.52 10*3/uL [facility] Monocytes/100 WBC (Bld) 7.0 % [facility] Neutrophils (Bld) [#/Vol] 4.92 10*3/uL [facility] Neutrophils/100 WBC (Bld) 66.7 % [facility] Nucleated RBC (Bld) [#/Vol] [facility] Nucleated RBC/100 WBC (Bld) [Ratio] 0.0 [...] [facility] Center WBC (Bld) [#/Vol] 7.38 10*3/uL [facility] This is an appended report. These results have been appended to a previously verified report. [facility] CT Chest W contrast Tristin IMPRESSION: [...] any questions regarding this interpretation, please call [phone]. If you are unable to reach us at the number above, please feel free to contact [facility] eRadiology at [phone]. ZZZ_DO_NOT_US E_DIVISION OF RADIOLOGY * * *Final Report* * * DATE OF EXAM: Oct 06 2021 8:22AM [facility] 0539 - CT CHEST [...] images through the upper abdomen appear stable. [employer] (topogram) images: No additional findings. ZZZ_DO_NOT_US E_DIVISION OF RADIOLOGY Provider, [facility] - 10/06/2021 * * *Final Report* * * DATE OF EXAM: Oct 06 2021 8:22AM [facility] 0539 - CT CHEST [...] images through the upper abdomen appear stable. Partition Assembler (topogram) images: No additional findings. IMPRESSION IMPRESSION: [...] any questions regarding this interpretation, please call [phone]. If you are unable to reach us at the number above, please feel free to contact [facility] eRadiology at [phone]. [facility] CT Neck W contrast Tristin 04-2 [...] any questions regarding this interpretation, please call [phone]. If you are unable to reach us at the number above, please feel free to [facility] [phone]. ZZZ_DO_NOT_US E_DIVISION OF RADIOLOGY * * *Final Report* * * DATE OF EXAM: Oct 06 2021 8:22AM [facility] 0013 - CT NECK [...] DATE OF EXAM: Oct 06 2021 8:22AM [facility] 0013 - CT NECK [...] any questions regarding this interpretation, please call [phone]. If you are unable to reach us at the number above, please feel free to contact [facility] eRadiology at [phone]. [facility] [...] [facility] Comment on above: The [place] Diabete s Association (ADA) provides guidance for [...] Standards of Medical Care in Diabetes 2016, [place] Diabetes Association. Diabetes Care. 2016.39(Suppl 1). Interpretation [...] [Mass/Vol] 10 mg/dL 9 - 24 mg/dL [facility] No Panel Informationon 10-06 Radiology Study observation (narrative) [facility] COVID + FLU Quick Testingon 06-30-2021 SARS-CoV-2 (COVID-19) RNA JER+probe Ql (Unsp spec) Negative [facility] [employer] Other COVID + FLU Quick Testing Negative [employer] Other COVID Quick Testingon 2020 Result Negative [facility] [employer] Other Basophils Auto (Bld) [#/Vol] on 09-20-2020 Basophils (Bld) [#/Vol] 0.0 10*3/uL 0.0-0.2 [facility] Basophils/100 WBC Auto (Bld) on 09-20-2020 Basophils/100 WBC (Bld) 0.6 % [facility] Blood hemoglobin measurement (mass/volume)on 09-20-2020 Hemoglobin (Bld) [Mass/Vol] 14.4 g/dL 13.0-17.0 [facility] Blood leukocytes automated c ount (number/volume)on 09-20-2020 WBC (Bld) [#/Vol] 7.4 10*3/uL 4.5-11.0 [facility] Eosinophils Auto (Bld) [#/Vo l]on 09-20-2020 Eosinophils (Bld) [#/Vol] 0.1 10*3/uL 0.0-0.45 [facility] Eosinophils/100 WBC Auto (Bl d)on 09-20-2020 Eosinophils/100 WBC (Bld) 0.9 % [facility] Erythrocyte distribution wid th Auto (RBC) [Ratio]on 09-20-2020 Erythrocyte distribution width (RBC) [Ratio] 14.6 % 12.0-14.8 [facility] Hematocrit Auto (Bld) [Volum e fraction]on 09-20-2020 Hematocrit (Bld) [Volume fraction] 41.7 % 38.8-50.0 [facility] Lymphocytes Auto (Bld) [#/Vo l]on 09-20-2020 Lymphocytes (Bld) [#/Vol] 1.6 10*3/uL 1.00-4.8 [facility] Lymphocytes/100 WBC Auto (Bl d)on 09-20-2020 Lymphocytes/100 WBC (Bld) 21.3 % [facility] MCH Auto (RBC) [Entitic mass ]on 09-20-2020 MCH (RBC) [Entitic mass] 32.4 pg 27.5-35.2 [facility] MCHC Auto (RBC) [Mass/Vol]on 09-20-2020 MCHC (RBC) [Mass/Vol] 34.5 g/dL 32.5-35.6 [facility] MCV Auto (RBC) [Entitic vol] on 09-20-2020 MCV (RBC) [Entitic vol] 93.9 fL 83.5-101 [facility] Monocytes Auto (Bld) [#/Vol] on 09-20-2020 Monocytes (Bld) [#/Vol] 0.6 10*3/uL 0.0-0.8 [facility] Monocytes/100 WBC Auto (Bld) on 09-20-2020 Monocytes/100 WBC (Bld) 8.6 % [facility] Neutrophils Auto (Bld) [#/Vo l]on 09-20-2020 Neutrophils (Bld) [#/Vol] 5.1 10*3/uL 1.8-7.7 [facility] Neutrophils/100 WBC Auto (Bl d)on 09-20-2020 Neutrophils/100 WBC (Bld) 68.6 % [facility] Otheron 09-20-2020 Nucleated RBC/100 WBC (Bld) [Ratio] 0.0 % 0-0.5 [facility] Platelet mean volume Auto (B ld) [Entitic vol]on 09-20-2020 Platelet mean volume (Bld) [Entitic vol] 9.3 fL 6.6-10.1 [facility] Platelets Auto (Bld) [#/Vol] on 09-20-2020 Platelets (Bld) [#/Vol] 182 10*3/uL 150-450 [facility] RBC Auto (Bld) [#/Vol]on RBC (Bld) [#/Vol] 4.44 10*6/uL 3.90-5.60 [facility] Body fluid albumin measureme nt (mass/volume)on 09-13-2020 Albumin (Body fld) [Mass/Vol] 4.3 g/dL 3.2-5.5 [facility] Cholesterol [Mass/volume] in Serum or Plasmaon 09-13-2020 Cholesterol [Mass/Vol] 219 mg/dL 140-200 [facility] Comment on above: Chol less than 200 m g/dl low riskChol 201-239 mg/dl borderline riskChol 240 mg/dl and greater high risk Cholesterol in LDL Calc [Mas s/Vol]on 09-13-2020 Cholesterol in LDL [Mass/Vol] 149 mg/dL 0-100 [facility] Comment on above: LDL ATP III CLASSIFI CATIONLDL less than 100 mg/dL OptimalLDL 100-129 mg/dL Near or above optimalLDL 130-159 mg/dL Borderline highLDL 160-189 mg/dL HighLDL greater than 189 mg/dL Very high Cholesterol in VLDL Calc [Ma ss/Vol]on 09-13-2020 Cholesterol in VLDL [Mass/Vol] 28 mg/dL [facility] Creatinine and Glomerular fi ltration rate.predicted panel (S/P/Bld)on 09-13-2020 Creatinine [Mass/Vol] 0.89 mg/dL 0.64-1.27 [facility] GFR/1.73 sq M.predicted roverto g non-blacks MDRD (S/P/Bld) [Vol rate/Area]on 09-13-2020 GFR/1.73 sq M predicted among non-blacks MDRD (S/P/Bld) [Vol rate/Area] > 60 mL/Min [facility] Globulin Calc (S) [Mass/Vol] on 09-13-2020 Globulin (S) [Mass/Vol] 2.0 g/dL [facility] No Panel Informationon 09-13 Estimated GFR () > 60 mL/Min [facility] Comment on above: GFR estimated [...] kidney disease. Pharmacy Creatinine Clearance (Chem N/A [facility] Prostate Specific Antigen Screen 0.480 ng/mL 0.000-4.00 0 [facility] Protein [Mass/volume] in Ser um or Plasmaon 09-13-2020 Protein [Mass/Vol] 6.3 g/dL 6.1-7.9 [facility] SARS-CoV-2 (COVID-19) IgG Ab [Presence] in Serum or Plasma by Immunoassayon 09-13-2020 SARS-CoV-2 (COVID-19) IgG Ab [Presence] in Serum or Plasma by Immunoassay Positive Negative [facility] Comment on above: Results suggest rece nt or prior infection with SARS-CoV-2.Correlation with epidemiologic risk factors and otherclinical and laboratory findings is recommended. Serologicresults should not be used as the sole basis to diagnose orexclude recent SARS-CoV-2 infection. False positive resultsinfrequently occur due to prior infection with other humanCoronaviruses.This assay was performed using the [employer](R)SARS-CoV-2 S1/S2 IgG assay.This assay detects antibodies against SARS-CoV-2 spikeprotein including the receptor binding domain (RBD).Performed at: [facility] [id number] Director: Florencio Wu PhD, Phone: [phone] SARS-CoV-2 (COVID-19) IgG IA Ql Positive Negative [facility] Comment on above: Results suggest rece nt or prior infection with SARS-CoV-2.Correlation with epidemiologic risk factors and otherclinical and laboratory findings is recommended. Serologicresults should not be used as the sole basis to diagnose orexclude recent SARS-CoV-2 infection. False positive resultsinfrequently occur due to prior infection with other humanCoronaviruses.This assay was performed using the [employer](R)SARS-CoV-2 S1/S2 IgG assay.This assay detects antibodies against SARS-CoV-2 spikeprotein including the receptor binding domain (RBD).Performed at: [facility] [address] [id number] Director: Florencio Wu PhD, Phone: [phone] Serum or plasma alanine mclaughlin otransferase measurement without P-5'-P (enzymatic activion 09-13-2020 ALT No additional P-5'-P [Catalytic activity/Vol] 19 U/L 1060 [facility] Serum or plasma albumin/glob ulin mass ratioon 09-13-2020 Albumin/Globulin [Mass ratio] 2.2 {ratio} [facility] Serum or plasma alkaline fuentes sphatase measurement (enzymatic activity/volume)on 09-13-2020 ALP [Catalytic activity/Vol] 53 U/L 3292 [facility] Serum or plasma aspartate am inotransferase measurement (enzymatic activity/volume)on 09-13-2020 AST [Catalytic activity/Vol] 22 U/L 1042 [facility] Serum or plasma calcium paramjit urement (mass/volume)on 09-13-2020 Calcium [Mass/Vol] 9.1 mg/dL 8.2-10.2 [facility] Serum or plasma chloride robby surement (moles/volume)on 09-13-2020 Chloride [Moles/Vol] 105 mmol/L 95-114 [facility] Serum or plasma glucose paramjit urement (mass/volume)on 09-13-2020 Glucose [Mass/Vol] 97 mg/dL 70-100 [facility] Comment on above: ADA recommended refe rence rangeRandom Glucose Reference Range is dependent on time and content of last meal. Glucose of more than 200 mg/dL in a nonstressed, ambulatory subject supports the diagnosis of Diabetes Mellitus. Serum or plasma high density lipoprotein (HDL) cholesterol measurementon 09-13-2020 Cholesterol in HDL [Mass/Vol] 41 mg/dL [facility] Comment on above: HDL CHOL ATP-III CLA SSIFICATION Cardiovascular RiskHDL > or equal to 60 mg/dL LOWHDL < 40 mg/dL HIGH Serum or plasma potassium me asurement (moles/volume)on 09-13-2020 Potassium [Moles/Vol] 4.2 mmol/L 3.5-5.1 [facility] Serum or plasma sodium measu rement (moles/volume)on 09-13-2020 Sodium [Moles/Vol] 135 mmol/L 136-146 [facility] Serum or plasma thyroid stim ulating hormone (TSH) measurement by high sensitivity meton 09-13-2020 TSH Qn 1.66 u[iU]/mL 0.45-5.33 [facility] Serum or plasma total biliru bin measurement (mass/volume)on 09-13-2020 Bilirubin [Mass/Vol] 0.9 mg/dL 0.3-1.2 [facility] Serum or plasma total carbon dioxide measurement (moles/volume)on 09-13-2020 CO2 [Moles/Vol] 22.5 mmol/L 22.0-30.0 [facility] Serum or plasma total choles terol/high density lipoprotein (HDL) cholesterol mass gia 09-13-2020 Cholesterol.total/Chol esterol in HDL [Mass ratio] 5.3 {ratio} [facility] Serum or plasma urea nitroge n measurement (mass/volume)on 09-13-2020 Urea nitrogen [Mass/Vol] 12 mg/dL 9- [facility] TSH DL <= 0.005 mIU/L Qnon 0 09-13-2020 TSH Qn 1.66 m[IU]/L 0.45-5.33 [facility] Triglyceride [Mass/volume] i n Serum or Plasmaon 09-13-2020 Triglyceride [Mass/Vol] 144 mg/dL 35-149 [facility] Comment on above: TRIG ATP [...] eye. Coleen Grajeda M.D. aek Dictated: 04/14/2019 #[id number] Typed 04/14/2019 #[id number] cc: Coleen Grajeda M.D. [facility] Comment on above: Result Comment: Elec tronically [...] and inferior fornices of the eye. A Reading [place] manometer was set on the eye at [...] condition. Coleen Grajeda M.D. s Dictated: 04/14/2019 #[id number] Typed: 04/15/2019 #[id number] cc: Coleen Grajeda M.D. [facility] Comment on above: Result Comment: Elec tronically Signed By: Coleen Grajeda MD\.br\Date and Time Signed: 04/18/19 09:54 EDT Coding Summary.on 04-15-2019 Coding Summary. 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 Name: SHANTEL MELENDEZ/Sex: 1960 Male Med Rec #: [id number] Physician: Coleen Grajeda MD Financial #: [id number] Pt. 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 Yes Warm, Stearns, Dry Last Modified By: Johnathon Karimi RN [...] Instruments Instruments Status Correct Correct Time By Asay Alves CST, CST, Jennifer Outcomes Met? Yes [...] RN Patient Status Stable Skin. 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 Oxygen in [...] LENS(Left) Implant Identification FT Description M[employer] [id number] [employer] Serial Number [id number] SIZE 21.0 [[id number] 21.0][F] Lot Number [id number] Faculty I On Call Medical Assistant FT-[employer] Catalog ?# [id number] 21.0[F] Expiration Date 10/16/23 Unique Device [id number] Identifier (BERNARD) Usage Data FT Implant Site [...] 15:16 Asya Alves CST 04/15/19 14:44 [facility] Inpatient Patient Summaryon 04-14-2019 Inpatient Patient Summary [facility] Clinical Discharge Instructions PERSON INFORMATION Name: SHANTEL MELENDEZ PHYSICIANS Admitting Physician: Coleen Grajeda MD Attending Physician: Coleen Grajeda MD PCP: JILLIAN BARONE DO Discharge Diagnosis: Cataract Comment: PATIENT EDUCATION INFORMATION Instructions: Medication Leaflets: Follow up: With: Address: When: Coleen Grajeda [address] [place] [address] [facility] (1) Comments: Call physician if symptoms worsen Keep scheduled appointment MEDICATION LIST Comment: [facility] Main OR PACU II Recordon Main OR PACU II Record PACU Phase II Doc ument Type FT Summary Primary Physician: Coleen Grajeda MD Finalized Date/Time: 04/14/19 17:54:42 Pt. Name: SHANTEL MELENDEZO.B./Sex: 1960 Male Med Rec #: [id number] Physician: Coleen Grajeda MD Financial #: [id number] Pt. Type: A Room/Bed: [facility] Admit/Disch: 04/14/19 12:59:23 - Institution: Case Times [...] By: Lizeth Rush RN 04/14/19 17:54 [facility] Main OR Preoperative Recordo n 04-14-2019 Main OR Preoperative Record PreOp Document Type FT Summary Primary Physician: Coleen Grajeda MD Finalized Date/Time: 04/14/19 15:14:03 Pt. Name: SHANTEL MELENDEZ/Sex: 1960 Male Med Rec #: [id number] Physician: Coleen Grajeda MD Financial #: [id number] Pt. Type: A Room/Bed: [place] [address] Admit/Disch: 04/14/19 12:59:23 - Institution: Case Times [...] By: Johnathon Karimi RN 04/14/19 15:14 [facility] Patient Education - Texton 1 Patient Education - Text [facility] Vital Signs Date Time Vital Sign Value Performing Clinician Facility 04-01-2025 14:04-0400 Body height 172.72 cm CMGE DO Work Phone: [facility] 04-01-2025 14:04-0400 Body mass index (BMI) [Ratio] 24.1 kg/m2 Griselda RealRiders DO Work Phone: [facility] 04-01-2025 14:04-0400 Body weight 72.12 kg [employer] DO Work Phone: [facility] 04-01-2025 14:04-0400 Diastolic blood pressure 70 mm[Hg] Griselda RealRiders DO Work Phone: [facility] 04-01-2025 14:04-0400 Heart rate 103 /min Griselda RealRiders DO Work Phone: [facility] 04-01-2025 14:04-0400 Respiratory rate 16 /min Griselda RealRiders DO Work Phone: [facility] 04-01-2025 14:04-0400 SaO2% (BldA) [Mass fraction] 99 % Griselda RealRiders DO Work Phone: [facility] 04-01-2025 14:04-0400 Systolic blood pressure 112 mm[Hg] Griselda Kuns DO Work Phone: [facility] 02-19-2025 11:25-0400 Body height 172.72 cm Griselda Kuns DO Work Phone: [facility] 02-19-2025 11:25-0400 Body mass index (BMI) [Ratio] 24.1 kg/m2 Griselda Kuns DO Work Phone: [facility] 02-19-2025 11:25-0400 Body weight 72.12 kg Griselda Kuns DO Work Phone: [facility] 02-19-2025 11:25-0400 Diastolic blood pressure 68 mm[Hg] Griselda Kuns DO Work Phone: [facility] 02-19-2025 11:25-0400 Heart rate 107 /min Griselda Kuns DO Work Phone: [facility] 02-19-2025 11:25-0400 Respiratory rate 16 /min Griselda Kuns DO Work Phone: [facility] 02-19-2025 11:25-0400 SaO2% (BldA) [Mass fraction] 98 % Griselda Kuns DO Work Phone: [facility] 02-19-2025 11:25-0400 Systolic blood pressure 102 mm[Hg] Griselda Kuns DO Work Phone: [facility] 02-04-2025 14:41-0400 Body mass index (BMI) [Ratio] 24.18 kg/m2 Oziel Cadena MD Work Phone: [facility] 02-04-2025 14:41-0400 Body weight 72.12 kg Oziel Cadena MD Work Phone: [facility] 02-04-2025 14:41-0400 Diastolic blood pressure 93 mm[Hg] Oziel Cadena MD Work Phone: [facility] 02-04-2025 14:41-0400 Heart rate 113 /min Oziel Cadena MD Work Phone: [facility] 02-04-2025 14:41-0400 Systolic blood pressure 133 mm[Hg] Oziel Cadena MD Work Phone: [facility] 01-12-2025 15:20-0400 Body height 172.72 cm Griselda Kuns DO Work Phone: [facility] 01-12-2025 15:20-0400 Body mass index (BMI) [Ratio] 27 kg/m2 Griselda Kuns DO Work Phone: [facility] 01-12-2025 15:20-0400 Body weight 80.73 kg Griselda Kuns DO Work Phone: [facility] 01-12-2025 15:20-0400 Diastolic blood pressure 74 mm[Hg] Griselda Kuns DO Work Phone: [facility] 01-12-2025 15:20-0400 Heart rate 76 /min Griselda Kuns DO Work Phone: [facility] 01-12-2025 15:20-0400 Systolic blood pressure 120 mm[Hg] Griselda Kuns DO Work Phone: [facility] 12-24-2024 14:12-0400 Body mass index (BMI) [Ratio] 25.09 kg/m2 Oziel Cadena MD Work Phone: [facility] 12-24-2024 14:12-0400 Body weight 74.84 kg Oziel Cadena MD Work Phone: [facility] 12-24-2024 14:12-0400 Diastolic blood pressure 87 mm[Hg] Oziel Cadena MD Work Phone: [facility] 12-24-2024 14:12-0400 Heart rate 85 /min Oziel Cadena MD Work Phone: [facility] 12-24-2024 14:12-0400 Systolic blood pressure 125 mm[Hg] Oziel Cadena MD Work Phone: [facility] 11-19-2024 14:04-0400 Body height 172.72 cm Griselda Kuns DO Work Phone: [facility] 11-19-2024 14:04-0400 Body temperature 100.7 [degF] Griselda Kuns DO Work Phone: [facility] 11-19-2024 14:04-0400 Heart rate 96 /min Griselda Kuns DO Work Phone: [facility] 11-19-2024 14:04-0400 Respiratory rate 18 /min Griselda Kuns DO Work Phone: [facility] 11-19-2024 14:04-0400 SaO2% (BldA) [Mass fraction] 99 % Griselda Kuns DO Work Phone: [facility] 11-17-2024 14:03-0400 Body height 172.72 cm Griselda Kuns DO Work Phone: [facility] 11-17-2024 14:03-0400 Body mass index (BMI) [Ratio] 26.3 kg/m2 Griselda Kuns DO Work Phone: [facility] 11-17-2024 14:03-0400 Body weight 78.47 kg Griselda Kuns DO Work Phone: [facility] 11-17-2024 14:03-0400 Diastolic blood pressure 80 mm[Hg] Griselda Kuns DO Work Phone: [facility] 11-17-2024 14:03-0400 Heart rate 109 /min Griselda Kuns DO Work Phone: [facility] 11-17-2024 14:03-0400 Systolic blood pressure 120 mm[Hg] Griselda Kuns DO Work Phone: [facility] 11-05-2024 10:30-0400 Diastolic blood pressure 76 mm[Hg] Griselda Kuns DO Work Phone: [facility] 11-05-2024 10:30-0400 Heart rate 71 /min Griselda Kuns DO Work Phone: [facility] 11-05-2024 10:30-0400 Respiratory rate 20 /min Griselda Kuns DO Work Phone: [facility] 11-05-2024 10:30-0400 SaO2% (BldA) [Mass fraction] 98 % Griselda Kuns DO Work Phone: [facility] 11-05-2024 10:30-0400 Systolic blood pressure 110 mm[Hg] Griselda Kuns DO Work Phone: [facility] 11-05-2024 07:12-0400 Body height 172.72 cm Griselda Kuns DO Work Phone: [facility] 11-05-2024 07:12-0400 Body weight 77.11 kg Griselda Kuns DO Work Phone: [facility] 10-27-2024 09:57-0400 Body height 172.72 cm Griselda Kuns DO Work Phone: [facility] 10-27-2024 09:57-0400 Body mass index (BMI) [Ratio] 26.4 kg/m2 Griselda Kuns DO Work Phone: [facility] 10-27-2024 09:57-0400 Body weight 78.92 kg Griselda Kuns DO Work Phone: [facility] 10-27-2024 09:57-0400 Diastolic blood pressure 64 mm[Hg] Griselda Kuns DO Work Phone: [facility] 10-27-2024 09:57-0400 Heart rate 64 /min Griselda Kuns DO Work Phone: [facility] 10-27-2024 09:57-0400 Respiratory rate 18 /min Griselda Kuns DO Work Phone: [facility] 10-27-2024 09:57-0400 SaO2% (BldA) [Mass fraction] 98 % Griselda Kuns DO Work Phone: [facility] 10-27-2024 09:57-0400 Systolic blood pressure 110 mm[Hg] Griselda Kuns DO Work Phone: [facility] 10-13-2024 09:06-0400 Body height 172.7 cm Doretha Harris MD Work Phone: [facility] 10-13-2024 09:06-0400 Body mass index (BMI) [Ratio] 25.54 kg/m2 Doretha Harris MD Work Phone: [facility] 10-13-2024 09:06-0400 Body weight 76.2 kg Doretha Harris MD Work Phone: [facility] 10-13-2024 09:06-0400 Diastolic blood pressure 60 mm[Hg] Doretha Harris MD Work Phone: [facility] 10-13-2024 09:06-0400 Heart rate 75 /min Doretha Harris MD Work Phone: [facility] 10-13-2024 09:06-0400 Systolic blood pressure 100 mm[Hg] Doretha Harris MD Work Phone: [facility] 10-10-2024 13:05-0400 Body height 172.72 cm Griselda Kuns DO Work Phone: [facility] 10-10-2024 13:05-0400 Body mass index (BMI) [Ratio] 25.4 kg/m2 Griselda Kuns DO Work Phone: [facility] 10-10-2024 13:05-0400 Body weight 75.74 kg Griselda Kuns DO Work Phone: [facility] 10-10-2024 13:05-0400 Diastolic blood pressure 58 mm[Hg] Griselda Kuns DO Work Phone: [facility] 10-10-2024 13:05-0400 Heart rate 76 /min Griselda Kuns DO Work Phone: [facility] 10-10-2024 13:05-0400 Systolic blood pressure 94 mm[Hg] Griselda Kuns DO Work Phone: [facility] 10-06-2024 18:42-0400 Diastolic blood pressure 80 mm[Hg] Griselda Kuns DO Work Phone: [facility] 10-06-2024 18:42-0400 Heart rate 80 /min Griselda Kuns DO Work Phone: [facility] 10-06-2024 18:42-0400 Respiratory rate 16 /min Griselda Kuns DO Work Phone: [facility] 10-06-2024 18:42-0400 SaO2% (BldA) [Mass fraction] 98 % Griselda Kuns DO Work Phone: [facility] 10-06-2024 18:42-0400 Systolic blood pressure 142 mm[Hg] Griselda Kuns DO Work Phone: [facility] 10-06-2024 14:04-0400 Body height 172.72 cm Griselda Kuns DO Work Phone: [facility] 10-06-2024 14:04-0400 Body temperature 98.2 [degF] Griselda Kuns DO Work Phone: [facility] 10-06-2024 14:04-0400 Body weight 77.9 kg Griselda Kuns DO Work Phone: [facility] 09-20-2024 14:00-0400 Heart rate 88 /min Griselda Kuns DO Work Phone: [facility] 09-20-2024 14:00-0400 Respiratory rate 20 /min Griselda Kuns DO Work Phone: [facility] 09-20-2024 14:00-0400 SaO2% (BldA) [Mass fraction] 93 % Griselda Kuns DO Work Phone: [facility] 09-20-2024 13:48-0400 Body temperature 99.4 [degF] Griselda Kuns DO Work Phone: [facility] 09-20-2024 13:48-0400 Diastolic blood pressure 59 mm[Hg] Griselda Kuns DO Work Phone: [facility] 09-20-2024 13:48-0400 Systolic blood pressure 103 mm[Hg] Griselda Kuns DO Work Phone: [facility] 09-20-2024 10:55-0400 Body height 172.72 cm Griselda Kuns DO Work Phone: [facility] 09-20-2024 10:55-0400 Body weight 77.9 kg Griselda Kuns DO Work Phone: [facility] 09-11-2024 10:46-0400 Body mass index (BMI) [Ratio] 27.06 kg/m2 Oziel Cadena MD Work Phone: [facility] 09-11-2024 10:46-0400 Body weight 80.74 kg Oziel Cadena MD Work Phone: [facility] 09-11-2024 10:46-0400 Diastolic blood pressure 68 mm[Hg] Oziel Cadena MD Work Phone: [facility] 09-11-2024 10:46-0400 Heart rate 61 /min Oziel Cadena MD Work Phone: [facility] 09-11-2024 10:46-0400 Systolic blood pressure 135 mm[Hg] Oziel Cadena MD Work Phone: [facility] 09-11-2024 09:22-0400 Body height 172.72 cm Griselda Kuns DO Work Phone: [facility] 09-11-2024 09:22-0400 Body mass index (BMI) [Ratio] 28.1 kg/m2 Griselda Kuns DO Work Phone: [facility] 09-11-2024 09:22-0400 Body temperature 96.6 [degF] Griselda Kuns DO Work Phone: [facility] 09-11-2024 09:22-0400 Body weight 84 kg Griselda Kuns DO Work Phone: [facility] 09-11-2024 09:22-0400 Diastolic blood pressure 86 mm[Hg] Griselda Kuns DO Work Phone: [facility] 09-11-2024 09:22-0400 Heart rate 78 /min Griselda Kuns DO Work Phone: [facility] 09-11-2024 09:22-0400 Respiratory rate 16 /min Griselda Kuns DO Work Phone: [facility] 09-11-2024 09:22-0400 SaO2% (BldA) [Mass fraction] 98 % Griselda Kuns DO Work Phone: [facility] 09-11-2024 09:22-0400 Systolic blood pressure 122 mm[Hg] Griselda Kuns DO Work Phone: [facility] 07-31-2024 13:26-0500 Body mass index (BMI) [Ratio] 27.37 kg/m2 Oziel Cadena MD Work Phone: [facility] 07-31-2024 13:26-0500 Body weight 81.65 kg Oziel Cadena MD Work Phone: [facility] 07-31-2024 13:26-0500 Diastolic blood pressure 89 mm[Hg] Oziel Cadena MD Work Phone: [facility] 07-31-2024 13:26-0500 Heart rate 81 /min Oziel Cadena MD Work Phone: [facility] 07-31-2024 13:26-0500 Systolic blood pressure 131 mm[Hg] Oziel Cadena MD Work Phone: [facility] 07-03-2024 09:54-0500 Body height 172.72 cm Griselda Kuns DO Work Phone: [facility] 07-03-2024 09:54-0500 Body mass index (BMI) [Ratio] 28.4 kg/m2 Griselda Kuns DO Work Phone: [facility] 07-03-2024 09:54-0500 Body weight 84.82 kg Griselda Kuns DO Work Phone: [facility] 07-03-2024 09:54-0500 Diastolic blood pressure 70 mm[Hg] Griselda Kuns DO Work Phone: [facility] 07-03-2024 09:54-0500 Heart rate 81 /min Griselda Kuns DO Work Phone: [facility] 07-03-2024 09:54-0500 Respiratory rate 18 /min Griselda Kuns DO Work Phone: [facility] 07-03-2024 09:54-0500 SaO2% (BldA) [Mass fraction] 98 % Griselda Kuns DO Work Phone: [facility] 07-03-2024 09:54-0500 Systolic blood pressure 120 mm[Hg] Griselda Kuns DO Work Phone: [facility] 07-02-2024 14:18-0500 Body mass index (BMI) [Ratio] 28.28 kg/m2 Oziel Cadena MD Work Phone: [facility] 07-02-2024 14:18-0500 Body weight 84.37 kg Oziel Cadena MD Work Phone: [facility] 07-02-2024 14:18-0500 Diastolic blood pressure 77 mm[Hg] Oziel Cadena MD Work Phone: [facility] 07-02-2024 14:18-0500 Heart rate 86 /min Oziel Cadena MD Work Phone: [facility] 07-02-2024 14:18-0500 Systolic blood pressure 143 mm[Hg] Oziel Cadena MD Work Phone: [facility] 06-30-2024 08:56-0500 Body height 172.7 cm Doretha Harris MD Work Phone: 0(542)223-2748[address] [place] [address] 06-30-2024 08:56-0500 Body mass index (BMI) [Ratio] 27.37 kg/m2 Doretha Harris MD Work Phone: 2(681)224-893814 [place] [address] 06-30-2024 08:56-0500 Body weight 81.65 kg Doretha Harris MD Work Phone: 2(881)276-693614 [place] [address] 06-30-2024 08:56-0500 Diastolic blood pressure 70 mm[Hg] Doretha Harris MD Work Phone: 9(599)975-383214 [place] [address] 06-30-2024 08:56-0500 Heart rate 75 /min Doretha Harris MD Work Phone: 5(647)188-871314 [place] [address] 06-30-2024 08:56-0500 Systolic blood pressure 124 mm[Hg] Doretha Harris MD Work Phone: 0(203)507-046414 [place] [address] 05-21-2024 14:04-0500 Body height 172.7 cm Oziel Cadena MD Work Phone: [facility] 05-21-2024 14:04-0500 Body mass index (BMI) [Ratio] 26.46 kg/m2 Oziel Cadena MD Work Phone: [facility] 05-21-2024 14:04-0500 Body weight 78.93 kg Oziel Cadena MD Work Phone: [facility] 05-21-2024 14:04-0500 Diastolic blood pressure 82 mm[Hg] Oziel Cadena MD Work Phone: [facility] 05-21-2024 14:04-0500 Systolic blood pressure 120 mm[Hg] Oziel Cadena MD Work Phone: [facility] 04-28-2024 09:48-0500 Body height 172.72 cm [facility] 04-28-2024 09:48-0500 Body mass index (BMI) [Ratio] 27 kg/m2 [facility] 04-28-2024 09:48-0500 Body weight 80.73 kg [facility] 04-28-2024 09:48-0500 Diastolic blood pressure 76 mm[Hg] [facility] 04-28-2024 09:48-0500 Heart rate 61 /min [facility] 04-28-2024 09:48-0500 Respiratory rate 18 /min [facility] 04-28-2024 09:48-0500 SaO2% (BldA) [Mass fraction] 96 % [facility] 04-28-2024 09:48-0500 Systolic blood pressure 130 mm[Hg] [facility] 04-10-2024 12:11-0400 Body temperature 98.1 [degF] Doretha Harris MD Work Phone: [facility] 04-10-2024 12:11-0400 Diastolic blood pressure 58 mm[Hg] Doretha Harris MD Work Phone: [facility] 04-10-2024 12:11-0400 Heart rate 82 /min Doretha Harris MD Work Phone: [facility] 04-10-2024 12:11-0400 Respiratory rate 17 /min Doretha Harris MD Work Phone: [facility] 04-10-2024 12:11-0400 Systolic blood pressure 118 mm[Hg] Doretha Harris MD Work Phone: [facility] 04-10-2024 09:20-0400 SaO2% (BldA) [Mass fraction] 93 % Doretha Harris MD Work Phone: [facility] 04-09-2024 15:07-0400 Body temperature 37 Doretha Harris MD Work Phone: [facility] 04-09-2024 15:07-0400 SaO2% (BldA) [Mass fraction] 100 % Doretha Harris MD Work Phone: [facility] 04-09-2024 14:47-0400 Body temperature 37.0 degrees Celsius [facility] Comment on above: Performed By: #### [id number] #### TITUS Mercado ([id number]) [facility] ([facility]) [address] [place] [address] 04-09-2024 14:47-0400 SaO2% (BldA) [Mass fraction] 100 % [facility] Comment on above: Performed By: #### [id number] #### TITUS Mercado ([id number]) [facility] ([facility]) [address] [place] [address] 04-09-2024 12:11-0400 Body height 172.7 cm Doretha Harris MD Work Phone: [facility] 04-09-2024 12:11-0400 Body mass index (BMI) [Ratio] 27.12 kg/m2 Doretha Harris MD Work Phone: [facility] 04-09-2024 12:11-0400 Body weight 80.9 kg Doretha Harris MD Work Phone: [facility] 04-01-2024 10:47-0400 Body height 172.72 cm [facility] 04-01-2024 10:47-0400 Body mass index (BMI) [Ratio] 27.2 kg/m2 [facility] 04-01-2024 10:47-0400 Body weight 81.19 kg [facility] 04-01-2024 10:47-0400 Diastolic blood pressure 70 mm[Hg] [facility] 04-01-2024 10:47-0400 Heart rate 50 /min [facility] 04-01-2024 10:47-0400 Respiratory rate 16 /min [facility] 04-01-2024 10:47-0400 SaO2% (BldA) [Mass fraction] 99 % [facility] 04-01-2024 10:47-0400 Systolic blood pressure 120 mm[Hg] [facility] 01-31-2024 10:24-0400 Body height 172.72 cm [facility] 01-31-2024 10:24-0400 Body mass index (BMI) [Ratio] 27.3 kg/m2 [facility] 01-31-2024 10:24-0400 Body weight 81.64 kg [facility] 01-31-2024 10:24-0400 Diastolic blood pressure 70 mm[Hg] [facility] 01-31-2024 10:24-0400 Heart rate 75 /min [facility] 01-31-2024 10:24-0400 Respiratory rate 18 /min [facility] 01-31-2024 10:24-0400 SaO2% (BldA) [Mass fraction] 98 % [facility] 01-31-2024 10:24-0400 Systolic blood pressure 122 mm[Hg] [facility] 01-03-2024 13:36-0400 Body height 172.7 cm Doretha Harris MD Work Phone: [facility] 01-03-2024 13:36-0400 Body mass index (BMI) [Ratio] 27.43 kg/m2 Doretha Harris MD Work Phone: [facility] 01-03-2024 13:36-0400 Body weight 81.83 kg Doretha Harris MD Work Phone: [facility] 01-03-2024 13:36-0400 Diastolic blood pressure 80 mm[Hg] Doretha Harris MD Work Phone: [facility] 01-03-2024 13:36-0400 Heart rate 80 /min Doretha Harris MD Work Phone: [facility] 01-03-2024 13:36-0400 Systolic blood pressure 160 mm[Hg] Doretha Harris MD Work Phone: [facility] 12-13-2023 10:00-0400 Body mass index (BMI) [Ratio] 27.1 kg/m2 Helder Jack MD Work Phone: [facility] 12-13-2023 10:00-0400 Body temperature 97.5 [degF] Helder Jack MD Work Phone: [facility] 12-13-2023 10:00-0400 Body weight 80.83 kg Helder Jack MD Work Phone: [facility] 12-13-2023 10:00-0400 Diastolic blood pressure 59 mm[Hg] Helder Jack MD Work Phone: [facility] 12-13-2023 10:00-0400 Heart rate 92 /min Helder Jack MD Work Phone: [facility] 12-13-2023 10:00-0400 Respiratory rate 17 /min Helder Jack MD Work Phone: [facility] 12-13-2023 10:00-0400 SaO2% (BldA) [Mass fraction] 96 % Helder Jack MD Work Phone: [facility] 12-13-2023 10:00-0400 Systolic blood pressure 133 mm[Hg] Helder Jack MD Work Phone: [facility] 12-12-2023 13:08-0400 Body height 172.7 cm Solomon Narayanan PA-C Work Phone: [facility] 12-12-2023 13:08-0400 Body mass index (BMI) [Ratio] 26.91 kg/m2 Solomon Milks PA-C Work Phone: [facility] 12-12-2023 13:08-0400 Body weight 80.29 kg Solomon Milks PA-C Work Phone: [facility] 12-12-2023 13:08-0400 Diastolic blood pressure 70 mm[Hg] Solomon Milks PA-C Work Phone: [facility] 12-12-2023 13:08-0400 Heart rate 91 /min Solomon Milks PA-C Work Phone: [facility] 12-12-2023 13:08-0400 Systolic blood pressure 116 mm[Hg] Solomon Milks PA-C Work Phone: [facility] 12-03-2023 10:51-0400 Body height 172.72 cm DO Griselda Kuns Work Phone: [facility] 12-03-2023 10:51-0400 Body mass index (BMI) [Ratio] 26.1 kg/m2 DO Griselda Kuns Work Phone: [facility] 12-03-2023 10:51-0400 Body weight 78.01 kg DO Griselda Kuns Work Phone: [facility] 12-03-2023 10:51-0400 Diastolic blood pressure 82 mm[Hg] DO Griselda Kuns Work Phone: [facility] 12-03-2023 10:51-0400 Heart rate 97 /min DO Griselda Kuns Work Phone: [facility] 12-03-2023 10:51-0400 Respiratory rate 18 /min DO Griselda Kuns Work Phone: [facility] 12-03-2023 10:51-0400 SaO2% (BldA) [Mass fraction] 96 % DO Griselda Kuns Work Phone: [facility] 12-03-2023 10:51-0400 Systolic blood pressure 110 mm[Hg] DO Griselda Andreas Work Phone: [facility] 11-02-2023 09:49-0400 Body height 170.6 cm Racquel Cole MD Work Phone: [facility] 11-02-2023 09:49-0400 Body mass index (BMI) [Ratio] 27.38 kg/m2 Racquel Cole MD Work Phone: [facility] 11-02-2023 09:49-0400 Body temperature 97.7 [degF] Racquel Cole MD Work Phone: [facility] 11-02-2023 09:49-0400 Body weight 79.7 kg Racquel Cole MD Work Phone: [facility] 11-02-2023 09:49-0400 Diastolic blood pressure 76 mm[Hg] Racquel Cole MD Work Phone: [facility] 11-02-2023 09:49-0400 Heart rate 72 /min Racquel Cole MD Work Phone: [facility] 11-02-2023 09:49-0400 Respiratory rate 16 /min Racquel Cole MD Work Phone: [facility] 11-02-2023 09:49-0400 SaO2% (BldA) [Mass fraction] 99 % Racquel Cole MD Work Phone: [facility] 11-02-2023 09:49-0400 Systolic blood pressure 130 mm[Hg] Racquel Cole MD Work Phone: [facility] 10-29-2023 10:32-0400 Body height 172.72 cm DO Griselda Kuns Work Phone: [facility] 10-29-2023 10:32-0400 Body mass index (BMI) [Ratio] 26.6 kg/m2 DO Griselda RealRiders Work Phone: [facility] 10-29-2023 10:32-0400 Body weight 79.37 kg DO Griselda Kuns Work Phone: [facility] 10-29-2023 10:32-0400 Diastolic blood pressure 82 mm[Hg] DO Griselda Kuns Work Phone: [facility] 10-29-2023 10:32-0400 Heart rate 71 /min DO Griselda Kuns Work Phone: [facility] 10-29-2023 10:32-0400 Respiratory rate 16 /min DO Griselda Kuns Work Phone: [facility] 10-29-2023 10:32-0400 SaO2% (BldA) [Mass fraction] 98 % DO Griselda Kuns Work Phone: [facility] 10-29-2023 10:32-0400 Systolic blood pressure 128 mm[Hg] DO Griselda Kuns Work Phone: [facility] 10-18-2023 09:02-0400 Diastolic blood pressure 68 mm[Hg] DO Griselda Kuns Work Phone: [facility] 10-18-2023 09:02-0400 Systolic blood pressure 132 mm[Hg] DO Griselda Kuns Work Phone: [facility] 10-18-2023 08:58-0400 Body height 172.72 cm DO Griselda Kuns Work Phone: [facility] 10-18-2023 08:58-0400 Body mass index (BMI) [Ratio] 26.6 kg/m2 DO Griselda Kuns Work Phone: [facility] 10-18-2023 08:58-0400 Body weight 79.37 kg DO Griselda Kuns Work Phone: [facility] 10-18-2023 08:58-0400 Heart rate 57 /min DO Griselda Kuns Work Phone: [facility] 10-18-2023 08:58-0400 Respiratory rate 18 /min DO Griselda Kuns Work Phone: [facility] 10-18-2023 08:58-0400 SaO2% (BldA) [Mass fraction] 98 % DO Griselda Kuns Work Phone: [facility] 10-05-2023 09:37-0400 Body height 172.2 cm Helder Jack MD Work Phone: [facility] 10-05-2023 09:37-0400 Body mass index (BMI) [Ratio] 26.25 kg/m2 Helder Jack MD Work Phone: [facility] 10-05-2023 09:37-0400 Body temperature 97.3 [degF] Helder Jack MD Work Phone: [facility] 10-05-2023 09:37-0400 Body weight 77.84 kg Helder Jack MD Work Phone: [facility] 10-05-2023 09:37-0400 Diastolic blood pressure 68 mm[Hg] Helder Jack MD Work Phone: [facility] 10-05-2023 09:37-0400 Heart rate 81 /min Helder Jack MD Work Phone: [facility] 10-05-2023 09:37-0400 Respiratory rate 16 /min Helder Jack MD Work Phone: [facility] 10-05-2023 09:37-0400 SaO2% (BldA) [Mass fraction] 99 % Helder Jack MD Work Phone: [facility] 10-05-2023 09:37-0400 Systolic blood pressure 116 mm[Hg] Helder Jack MD Work Phone: [facility] 09-05-2023 13:44-0400 Diastolic blood pressure 99 mm[Hg] DO Griselda Kuns Work Phone: [facility] 09-05-2023 13:44-0400 Systolic blood pressure 160 mm[Hg] DO Griselda Kuns Work Phone: [facility] 09-05-2023 13:41-0400 Body height 172.72 cm DO Griselda Kuns Work Phone: [facility] 09-05-2023 13:41-0400 Body mass index (BMI) [Ratio] 27.8 kg/m2 DO Griselda Kuns Work Phone: [facility] 09-05-2023 13:41-0400 Body weight 83 kg DO Griselda Kuns Work Phone: [facility] 09-05-2023 13:41-0400 Heart rate 66 /min DO Griselda Kuns Work Phone: [facility] 09-05-2023 13:41-0400 Respiratory rate 18 /min DO Griselda Kuns Work Phone: [facility] 09-05-2023 13:41-0400 SaO2% (BldA) [Mass fraction] 99 % DO Griselda Kuns Work Phone: [facility] 09-05-2023 11:58-0400 Body height 172.72 cm DO Griselda Kuns Work Phone: [facility] 09-05-2023 11:58-0400 Body mass index (BMI) [Ratio] 27.3 kg/m2 DO Griselda Kuns Work Phone: [facility] 09-05-2023 11:58-0400 Body temperature 97.8 [degF] DO Griselda Kuns Work Phone: [facility] 09-05-2023 11:58-0400 Body weight 81.64 kg DO Griselda Kuns Work Phone: [facility] 09-05-2023 11:58-0400 Diastolic blood pressure 92 mm[Hg] DO Griselda Kuns Work Phone: [facility] 09-05-2023 11:58-0400 Heart rate 71 /min DO Griselda Kuns Work Phone: [facility] 09-05-2023 11:58-0400 SaO2% (BldA) [Mass fraction] 96 % DO Griselda Kuns Work Phone: [facility] 09-05-2023 11:58-0400 Systolic blood pressure 160 mm[Hg] DO Griselda Kuns Work Phone: [facility] 08-15-2023 15:41-0500 Body height 172.72 cm DO Griselda Kuns Work Phone: [facility] 08-15-2023 15:41-0500 Body mass index (BMI) [Ratio] 28.1 kg/m2 DO Griselda Kuns Work Phone: [facility] 08-15-2023 15:41-0500 Body weight 84.08 kg DO Griselda Kuns Work Phone: [facility] 08-15-2023 15:41-0500 Diastolic blood pressure 72 mm[Hg] DO Griselda Kuns Work Phone: [facility] 08-15-2023 15:41-0500 Heart rate 62 /min DO Griselda Kuns Work Phone: [facility] 08-15-2023 15:41-0500 Respiratory rate 18 /min DO Griselda Kuns Work Phone: [facility] 08-15-2023 15:41-0500 SaO2% (BldA) [Mass fraction] 99 % DO Griselda Kuns Work Phone: [facility] 08-15-2023 15:41-0500 Systolic blood pressure 128 mm[Hg] DO Griselda Kuns Work Phone: [facility] 08-02-2023 13:11-0500 Body height 172.72 cm DO Griselda Kuns Work Phone: [facility] 08-02-2023 13:11-0500 Body mass index (BMI) [Ratio] 27.9 kg/m2 DO Griselda Kuns Work Phone: [facility] 08-02-2023 13:11-0500 Body weight 83.46 kg DO Griselda Kuns Work Phone: [facility] 08-02-2023 13:11-0500 Diastolic blood pressure 70 mm[Hg] DO Griselda Kuns Work Phone: [facility] 08-02-2023 13:11-0500 Heart rate 68 /min DO Griselda Kuns Work Phone: [facility] 08-02-2023 13:11-0500 Respiratory rate 16 /min DO Griselda Kuns Work Phone: [facility] 08-02-2023 13:11-0500 SaO2% (BldA) [Mass fraction] 97 % DO Griselda Kuns Work Phone: [facility] 08-02-2023 13:11-0500 Systolic blood pressure 130 mm[Hg] DO Griselda Kuns Work Phone: [facility] 07-02-2023 09:30-0500 Body height 172.72 cm Griselda RealRiders Other [facility] 07-02-2023 09:30-0500 Body mass index (BMI) [Ratio] 28.28 kg/m2 Griselda RealRiders Other [facility] [employer] Other 07-02-2023 09:30-0500 Body weight 84.37 kg Griselda Kuns Other [facility] [employer] Other 07-02-2023 09:30-0500 Body weight 84.36 kg DO Griselda Kuns Work Phone: [facility] 07-02-2023 09:30-0500 Diastolic blood pressure 92 mm[Hg] Griselda Kuns Other [facility] 07-02-2023 09:30-0500 Respiratory rate 16 /min Griselda Kuns Other [employer] Other 07-02-2023 09:30-0500 SaO2% (BldA) [Mass fraction] 97 % Griselda Kuns Other [facility] [employer] Other 07-02-2023 09:30-0500 Systolic blood pressure 160 mm[Hg] Griselda Kuns Other [facility] 05-31-2023 13:45-0500 Body height 172.72 cm Griselda Kuns Other [facility] 05-31-2023 13:45-0500 Body mass index (BMI) [Ratio] 27.37 kg/m2 Griselda Kuns Other [facility] [employer] Other 05-31-2023 13:45-0500 Body weight 81.65 kg Griselda Kuns Other [employer] Other 05-31-2023 13:45-0500 Body weight 81.64 kg DO Griselda Kuns Work Phone: [facility] 05-31-2023 13:45-0500 Diastolic blood pressure 80 mm[Hg] Griselda Kuns Other [facility] 05-31-2023 13:45-0500 Respiratory rate 18 /min Griselda Kuns Other [employer] Other 05-31-2023 13:45-0500 SaO2% (BldA) [Mass fraction] 98 % Griselda Kuns Other [employer] Other 05-31-2023 13:45-0500 Systolic blood pressure 120 mm[Hg] Girselda Hastings Other [facility] 05-30-2023 11:15-0500 Body height 172.72 cm Ruddy Ovalledoris Other [facility] 05-30-2023 11:15-0500 Body mass index (BMI) [Ratio] 27.52 kg/m2 Ruddy Ovalledoris Other [employer] Other 05-30-2023 11:15-0500 Body temperature 97.8 [degF] Ruddy Wes Other [facility] [employer] Other 05-30-2023 11:15-0500 Body weight 82.1 kg Ruddy Wes Other [facility] 05-30-2023 11:15-0500 SaO2% (BldA) [Mass fraction] 98 % Ruddy Ovalledoris Other [employer] Other 05-15-2023 13:20-0500 Body height 172.72 cm Lilliam Cason Other [facility] 05-15-2023 13:20-0500 Body mass index (BMI) [Ratio] 27.52 kg/m2 Lilliam Grecooroge Other [facility] [employer] Other 05-15-2023 13:20-0500 Body weight 82.1 kg Lilliam Kamla Other [facility] 05-15-2023 13:20-0500 Diastolic blood pressure 84 mm[Hg] Lilliam Grecooroge Other [facility] 05-15-2023 13:20-0500 Respiratory rate 18 /min Lilliam Cason Other [employer] Other 05-15-2023 13:20-0500 SaO2% (BldA) [Mass fraction] 98 % Lilliam Cason Other [employer] Other 05-15-2023 13:20-0500 Systolic blood pressure 142 mm[Hg] Lilliam Cason Other [facility] 05-07-2023 13:16-0500 Diastolic blood pressure 78 mm[Hg] DO Griselda Kuns Work Phone: [facility] 05-07-2023 13:16-0500 Heart rate 75 /min DO Griselda Kuns Work Phone: [facility] 05-07-2023 13:16-0500 Respiratory rate 16 /min DO Griselda Kuns Work Phone: [facility] 05-07-2023 13:16-0500 SaO2% (BldA) [Mass fraction] 96 % DO Griselda Kuns Work Phone: [facility] 05-07-2023 13:16-0500 Systolic blood pressure 135 mm[Hg] DO Griselda Kuns Work Phone: [facility] 05-07-2023 10:30-0500 Inhaled oxygen flow rate 3 L/min DO Griselda Kuns Work Phone: [facility] 05-07-2023 08:29-0500 Body height 172.72 cm DO Griselda Kuns Work Phone: [facility] 05-07-2023 08:29-0500 Body weight 79.37 kg DO Griselda Kuns Work Phone: [facility] 05-03-2023 09:15-0500 Body height 172.72 cm Ruddy Harvey Other [employer] Other 05-03-2023 09:15-0500 Body mass index (BMI) [Ratio] 27.06 kg/m2 Ruddy Ovalledoris Other [employer] Other 05-03-2023 09:15-0500 Body temperature 97.8 [degF] Ruddy Wes Other [employer] Other 05-03-2023 09:15-0500 Body weight 80.74 kg Ruddy Wes Other [employer] Other 05-03-2023 09:15-0500 Diastolic blood pressure 78 mm[Hg] Ruddy Harvey Other [employer] Other 05-03-2023 09:15-0500 SaO2% (BldA) [Mass fraction] 97 % Ruddy Wes Other [employer] Other 05-03-2023 09:15-0500 Systolic blood pressure 146 mm[Hg] Ruddy Wes Other [employer] Other 05-01-2023 10:30-0500 Body height 172.72 cm Griseldakeith Mendezs Other [employer] Other 05-01-2023 10:30-0500 Body mass index (BMI) [Ratio] 27.06 kg/m2 Griselda RealRiders Other [employer] Other 05-01-2023 10:30-0500 Body weight 80.74 kg Griselda RealRiders Other [employer] Other 05-01-2023 10:30-0500 Diastolic blood pressure 80 mm[Hg] Griselda RealRiders Other [employer] Other 05-01-2023 10:30-0500 Respiratory rate 18 /min Griselda Kuns Other [employer] Other 05-01-2023 10:30-0500 SaO2% (BldA) [Mass fraction] 96 % Griselda Kuns Other [employer] Other 05-01-2023 10:30-0500 Systolic blood pressure 144 mm[Hg] Griselda Kuns Other [employer] Other 04-11-2023 10:40-0400 Body height 172.72 cm Lilliam Kamla Other [employer] Other 04-11-2023 10:40-0400 Body mass index (BMI) [Ratio] 26.67 kg/m2 Lilliam Kamla Other [employer] Other 04-11-2023 10:40-0400 Body weight 79.56 kg Lilliam Kamla Other [employer] Other 04-11-2023 10:40-0400 Diastolic blood pressure 80 mm[Hg] Lilliam Kamla Other [employer] Other 04-11-2023 10:40-0400 SaO2% (BldA) [Mass fraction] 96 % Lilliam Kamla Other [employer] Other 04-11-2023 10:40-0400 Systolic blood pressure 148 mm[Hg] Lilliam Kamla Other [employer] Other 03-21-2023 02:42-0400 Diastolic blood pressure 98 mm[Hg] DO Griselda Kuns Work Phone: [facility] 03-21-2023 02:42-0400 Heart rate 72 /min DO Griselda Kuns Work Phone: [facility] 03-21-2023 02:42-0400 Respiratory rate 16 /min DO Griselda Kuns Work Phone: [facility] 03-21-2023 02:42-0400 SaO2% (BldA) [Mass fraction] 97 % DO Griselda Kuns Work Phone: [facility] 03-21-2023 02:42-0400 Systolic blood pressure 170 mm[Hg] DO Griselda Kuns Work Phone: [facility] 03-21-2023 00:12-0400 Body height 172.72 cm DO Griselda Kuns Work Phone: [facility] 03-21-2023 00:12-0400 Body temperature 98 [degF] DO Griselda Kuns Work Phone: [facility] 03-21-2023 00:12-0400 Body weight 79.37 kg DO Griselda Kuns Work Phone: [facility] 03-15-2023 10:30-0400 Body height 172.72 cm Griselda RealRiders Other [employer] Other 03-15-2023 10:30-0400 Body mass index (BMI) [Ratio] 26.76 kg/m2 Griselda RealRiders Other [employer] Other 03-15-2023 10:30-0400 Body weight 79.83 kg Griselda RealRiders Other [employer] Other 03-15-2023 10:30-0400 Diastolic blood pressure 86 mm[Hg] [employer] Other [employer] Other 03-15-2023 10:30-0400 Respiratory rate 16 /min Griselda Kuns Other [employer] Other 03-15-2023 10:30-0400 SaO2% (BldA) [Mass fraction] 97 % Griselda Kuns Other [employer] Other 03-15-2023 10:30-0400 Systolic blood pressure 174 mm[Hg] Griselda Kuns Other [employer] Other 03-08-2023 10:00-0400 Body height 172.72 cm Griselda Kuns Other [employer] Other 03-08-2023 10:00-0400 Body mass index (BMI) [Ratio] 27.18 kg/m2 Griselda Kuns Other [employer] Other 03-08-2023 10:00-0400 Body weight 81.1 kg Griselda Kuns Other [employer] Other 03-08-2023 10:00-0400 Diastolic blood pressure 82 mm[Hg] Griselda Kuns Other [employer] Other 03-08-2023 10:00-0400 Respiratory rate 16 /min Griselda Kuns Other [employer] Other 03-08-2023 10:00-0400 SaO2% (BldA) [Mass fraction] 96 % Griselda Kuns Other [employer] Other 03-08-2023 10:00-0400 Systolic blood pressure 118 mm[Hg] Griselda Kuns Other [employer] Other 02-26-2023 14:13-0400 Body height 172.72 cm DO Griselda Kuns Work Phone: [facility] 02-26-2023 14:13-0400 Body temperature 98 [degF] DO Griselda Kuns Work Phone: [facility] 02-26-2023 14:13-0400 Body weight 78.6 kg DO Griselda Kuns Work Phone: [facility] 02-26-2023 14:13-0400 Diastolic blood pressure 77 mm[Hg] DO Griselda Kuns Work Phone: [facility] 02-26-2023 14:13-0400 Heart rate 56 /min DO Griselda Kuns Work Phone: [facility] 02-26-2023 14:13-0400 Respiratory rate 18 /min DO Griselda Kuns Work Phone: [facility] 02-26-2023 14:13-0400 SaO2% (BldA) [Mass fraction] 96 % DO Griselda Kuns Work Phone: [facility] 02-26-2023 14:13-0400 Systolic blood pressure 142 mm[Hg] DO Griselda Kuns Work Phone: [facility] 12-05-2022 10:15-0400 Body height 172.72 cm [employer] Other [facility] [employer] Other 12-05-2022 10:15-0400 Body mass index (BMI) [Ratio] 25.85 kg/m2 GriseldaW4s Other [facility] [employer] Other 12-05-2022 10:15-0400 Body weight 77.11 kg Griselda RealRiders Other [employer] Other 12-05-2022 10:15-0400 Diastolic blood pressure 80 mm[Hg] Griselda Hastings Other [employer] Other 12-05-2022 10:15-0400 Respiratory rate 16 /min Griselda Hastings Other [employer] Other 12-05-2022 10:15-0400 SaO2% (BldA) [Mass fraction] 96 % Griselda Hastings Other [employer] Other 12-05-2022 10:15-0400 Systolic blood pressure 140 mm[Hg] Griselda Mendezs Other [employer] Other 09-13-2022 10:57-0400 Body height 170.6 cm Kelly Moorek PA-C Work Phone: [facility] 09-13-2022 10:57-0400 Body temperature 97.39 [degF] Kelly Moorek PA-C Work Phone: [facility] [...] 133 mm[Hg] Kelly Perez PA-C Work Phone: [facility] 08-31-2022 11:15-0400 Body height 172.72 cm Griselda Kuns Other [employer] Other 08-31-2022 11:15-0400 Body mass index (BMI) [Ratio] 26.79 kg/m2 Griselda Kuns Other [employer] Other 08-31-2022 11:15-0400 Body weight 79.92 kg Griselda Kuns Other [employer] Other 08-31-2022 11:15-0400 Diastolic blood pressure 78 mm[Hg] Griselda Kuns Other [employer] Education Other 08-31-2022 11:15-0400 Respiratory rate 16 /min Griselda Kuns Other [employer] Other 08-31-2022 11:15-0400 SaO2% (BldA) [Mass fraction] 98 % Griselda Kuns Other [employer] Other 08-31-2022 11:15-0400 Systolic blood pressure 138 mm[Hg] Griselda Kuns Other [employer] Other 08-01-2022 10:30-0500 Body height 172.72 cm Griselda Kuns Other [employer] Other 08-01-2022 10:30-0500 Body mass index (BMI) [Ratio] 27.27 kg/m2 Griselda Kuns Other [employer] Other 08-01-2022 10:30-0500 Body weight 81.38 kg Griselda Kuns Other [employer] Other 08-01-2022 10:30-0500 Diastolic blood pressure 82 mm[Hg] Griselda Kuns Other [employer] Other 08-01-2022 10:30-0500 Respiratory rate 16 /min Griselda Kuns Other [employer] Other 08-01-2022 10:30-0500 SaO2% (BldA) [Mass fraction] 99 % Griselda Kuns Other [facility] [employer] Other 08-01-2022 10:30-0500 Systolic blood pressure 146 mm[Hg] Griselda Kuns Other [facility] [employer] Other 07-17-2022 09:45-0500 Diastolic blood pressure 98 mm[Hg] DO Griselda Kuns Work Phone: [facility] 07-17-2022 09:45-0500 Heart rate 69 /min DO Griselda Kuns Work Phone: [facility] 07-17-2022 09:45-0500 Respiratory rate 16 /min DO Griselda Kuns Work Phone: [facility] 07-17-2022 09:45-0500 SaO2% (BldA) [Mass fraction] 99 % DO Griselda Kuns Work Phone: [facility] 07-17-2022 09:45-0500 Systolic blood pressure 144 mm[Hg] DO Griselda Kuns Work Phone: [facility] 07-17-2022 07:58-0500 Body height 172.72 cm DO Griselda Kuns Work Phone: [facility] 07-17-2022 07:58-0500 Body weight 79.37 kg DO Griselda Kuns Work Phone: [facility] 06-28-2022 10:20-0500 Body height 172.72 cm Trish Blades Other [employer] Other 06-28-2022 10:20-0500 Body mass index (BMI) [Ratio] 26.67 kg/m2 Trish Blades Other [employer] Other 06-28-2022 10:20-0500 Body weight 79.56 kg Trish Blades Other [employer] Other 06-28-2022 10:20-0500 Diastolic blood pressure 80 mm[Hg] Trish Blades Other [employer] Other 06-28-2022 10:20-0500 Systolic blood pressure 140 mm[Hg] Trish Blades Other [employer] Other 05-26-2022 13:30-0500 Body height 172.72 cm Griselda Kuns Other [employer] Other 05-26-2022 13:30-0500 Body mass index (BMI) [Ratio] 26.7 kg/m2 Griselda Kuns Other [employer] Other 05-26-2022 13:30-0500 Body weight 79.65 kg Griselda Kuns Other [employer] Other 05-26-2022 13:30-0500 Diastolic blood pressure 82 mm[Hg] Griselda Kuns Other [employer] Other 05-26-2022 13:30-0500 Respiratory rate 18 /min Griselda Kuns Other [facility] [employer] Other 05-26-2022 13:30-0500 SaO2% (BldA) [Mass fraction] 98 % Griselda Kuns Other [facility] [employer] Other 05-26-2022 13:30-0500 Systolic blood pressure 144 mm[Hg] Griselda Kuns Other [facility] [employer] Other 04-17-2022 00:30-0400 Diastolic blood pressure 64 mm[Hg] DO Griselda Kuns Work Phone: [facility] 04-17-2022 00:30-0400 Heart rate 78 /min DO Griselda Kuns Work Phone: [facility] 04-17-2022 00:30-0400 Respiratory rate 16 /min DO Griselda Kuns Work Phone: [facility] 04-17-2022 00:30-0400 SaO2% (BldA) [Mass fraction] 97 % DO Griselda Kuns Work Phone: [facility] 04-17-2022 00:30-0400 Systolic blood pressure 135 mm[Hg] DO Griselda Kuns Work Phone: [facility] 04-16-2022 19:45-0400 Body height 172.72 cm DO Griselda Kuns Work Phone: [facility] 04-16-2022 19:45-0400 Body temperature 98.1 [degF] DO Griselda Kuns Work Phone: [facility] 04-16-2022 19:45-0400 Body weight 78 kg DO Griselda Kuns Work Phone: [facility] 04-06-2022 16:31-0400 Body height 172.72 cm DO Griselda Kuns Work Phone: [facility] 04-06-2022 16:31-0400 Body temperature 98.1 [degF] DO Griselda Kuns Work Phone: [facility] 04-06-2022 16:31-0400 Body weight 79.37 kg DO Griselda Kuns Work Phone: [facility] 04-06-2022 16:31-0400 Diastolic blood pressure 108 mm[Hg] DO Griselda Kuns Work Phone: [facility] 04-06-2022 16:31-0400 Heart rate 95 /min DO Griselda Kuns Work Phone: [facility] 04-06-2022 16:31-0400 Respiratory rate 19 /min DO Griselda Kuns Work Phone: [facility] 04-06-2022 16:31-0400 SaO2% (BldA) [Mass fraction] 97 % DO Griselda Kuns Work Phone: [facility] 04-06-2022 16:31-0400 Systolic blood pressure 138 mm[Hg] DO Griselda Kuns Work Phone: [facility] 03-16-2022 13:30-0400 Body height 172.72 cm Griseldakeiht Mendezs Other [employer] Other 03-16-2022 13:30-0400 Body mass index (BMI) [Ratio] 26.91 kg/m2 Griseldakeith Mendezs Other [employer] Other 03-16-2022 13:30-0400 Body weight 80.29 kg Griselda RealRiders Other [employer] Other 03-16-2022 13:30-0400 Diastolic blood pressure 80 mm[Hg] Griselda Real[employer]iders Other [employer] Other 03-16-2022 13:30-0400 Respiratory rate 16 /min Griselda Kuns Other [employer] Other 03-16-2022 13:30-0400 SaO2% (BldA) [Mass fraction] 97 % Griselda Kuns Other [employer] Other 03-16-2022 13:30-0400 Systolic blood pressure 140 mm[Hg] Griselda Kuns Other [employer] Other 01-30-2022 12:00-0400 Body height 172.72 cm Griselda Kuns Other [employer] Other 01-30-2022 12:00-0400 Body mass index (BMI) [Ratio] 26.3 kg/m2 Griselda Kuns Other [employer] Other 01-30-2022 12:00-0400 Body weight 78.47 kg Griselda Kuns Other [employer] Other 01-30-2022 12:00-0400 Diastolic blood pressure 82 mm[Hg] Griselda Kuns Other [employer] Other 01-30-2022 12:00-0400 Respiratory rate 16 /min Griselda Kuns Other [employer] Other 01-30-2022 12:00-0400 SaO2% (BldA) [Mass fraction] 99 % Griselda Kuns Other [employer] Other 01-30-2022 12:00-0400 Systolic blood pressure 146 mm[Hg] Griselda Kuns Other [employer] Other 12-26-2021 11:00-0400 Body height 172.72 cm Griselda Kuns Other [employer] Other 12-26-2021 11:00-0400 Body mass index (BMI) [Ratio] 26.61 kg/m2 Griselda Kuns Other [employer] Other 12-26-2021 11:00-0400 Body weight 79.38 kg Griselda Kuns Other [employer] Other 12-26-2021 11:00-0400 Diastolic blood pressure 80 mm[Hg] Griselda Kuns Other [employer] Other 12-26-2021 11:00-0400 Respiratory rate 16 /min Griselda Kuns Other [employer] Other 12-26-2021 11:00-0400 SaO2% (BldA) [Mass fraction] 96 % Griselda Kuns Other [employer] Other 12-26-2021 11:00-0400 Systolic blood pressure 166 mm[Hg] Griselda Kuns Other [employer] Other 12-05-2021 10:15-0400 Body height 172.72 cm Griselda Kuns Other [employer] Other 12-05-2021 10:15-0400 Body mass index (BMI) [Ratio] 269.71 kg/m2 Griselda Kuns Other [employer] Other 12-05-2021 10:15-0400 Body weight 804.69 kg Griselda Kuns Other [employer] Other 12-05-2021 10:15-0400 Diastolic blood pressure 72 mm[Hg] Griselda Kuns Other [employer] Other 12-05-2021 10:15-0400 Respiratory rate 18 /min Griselda Kuns Other [employer] Other 12-05-2021 10:15-0400 SaO2% (BldA) [Mass fraction] 99 % Griselda Kuns Other [employer] Other 12-05-2021 10:15-0400 Systolic blood pressure 130 mm[Hg] Griselda Kuns Other [employer] Other 11-08-2021 11:15-0400 Body height 172.72 cm Griselda Kuns Other [employer] Other 11-08-2021 11:15-0400 Body mass index (BMI) [Ratio] 27.06 kg/m2 Griselda Kuns Other [employer] Other 11-08-2021 11:15-0400 Body weight 80.74 kg Griselda Kuns Other [employer] Other 11-08-2021 11:15-0400 Diastolic blood pressure 80 mm[Hg] Griselda Kuns Other [employer] Other 11-08-2021 11:15-0400 Respiratory rate 16 /min Griselda Kuns Other [employer] Other 11-08-2021 11:15-0400 SaO2% (BldA) [Mass fraction] 97 % Griselda Kuns Other [facility] [employer] Other 11-08-2021 11:15-0400 Systolic blood pressure 128 mm[Hg] Griselda Andrearoge Other [facility] [employer] Other 11-03-2021 09:38-0400 Body height 170.51 cm Griselda Driver Darling Work Phone: [facility] Work Phone: 11-03-2021 09:38-0400 Body mass index (BMI) [Ratio] 27.05 kg/m2 Griselda Hastings Work Phone: [facility] Work Phone: 11-03-2021 09:38-0400 Body surface area Derived from formula 1.91 m2 Griselda Hastings Work Phone: [facility] Work Phone: 11-03-2021 09:38-0400 Body temperature 98.2 [degF] Griselda Neisha Hastings Work Phone: [facility] Work Phone: 11-03-2021 09:38-0400 Body weight 78.65 kg Griselda Neisha Hastings Work Phone: [facility] Work Phone: 11-03-2021 09:38-0400 Diastolic blood pressure 67 mm[Hg] Griselda Hastings Work Phone: [facility] Work Phone: 11-03-2021 09:38-0400 Heart rate 63 /min Griselda Hastings Work Phone: [facility] Work Phone: 11-03-2021 09:38-0400 Respiratory rate 16 /min Griselda R Kuns Work Phone: [facility] Work Phone: 11-03-2021 09:38-0400 SaO2% (BldA) [Mass fraction] 99 % Griselda R Andreas Work Phone: [facility] Work Phone: 11-03-2021 09:38-0400 Systolic blood pressure 147 mm[Hg] Griselda R Kuns Work Phone: [facility] Work Phone: 11-03-2021 09:38-0400 7 1 Griselda R Kuns Work Phone: [facility] Work Phone: Comment on above: [employer] 11-01-2021 13:30-0400 Body height 172.72 cm Griselda Andreas Other [employer] [facility] [employer] Other 11-01-2021 13:30-0400 Body mass index (BMI) [Ratio] 26.61 kg/m2 Griselda Andreas Other [employer] Other 11-01-2021 13:30-0400 Body weight 79.38 kg Griselda Andreas Other [employer] Other 11-01-2021 13:30-0400 Diastolic blood pressure 78 mm[Hg] Griselda Andreas Other [employer] Other 11-01-2021 13:30-0400 Respiratory rate 18 /min Griselda Andreas Other [employer] Other 11-01-2021 13:30-0400 SaO2% (BldA) [Mass fraction] 99 % Griselda Andreas Other [employer] Other 11-01-2021 13:30-0400 Systolic blood pressure 140 mm[Hg] Griselda Hastings Other [employer] Other 10-24-2021 09:45-0400 Body height 172.72 cm Sheng Schneider Other [employer] Other 10-24-2021 09:45-0400 Body mass index (BMI) [Ratio] 26.76 kg/m2 Sheng Schneider Other [employer] Other 10-24-2021 09:45-0400 Body weight 79.83 kg Sheng Ibarrajonroge Other [employer] Other 10-13-2021 09:50-0400 Body height 172 cm Racquel Cole MD Work Phone: [facility] 10-13-2021 09:50-0400 Body temperature 97.5 [degF] Racquel Cole MD Work Phone: [facility] 10-13-2021 09:50-0400 Body weight 81.28 kg Racquel Cole MD Work Phone: [facility] 10-13-2021 09:50-0400 Diastolic blood pressure 77 mm[Hg] Racquel Cole MD Work Phone: [facility] 10-13-2021 09:50-0400 Heart rate 70 /min Racquel Cole MD Work Phone: [facility] 10-13-2021 09:50-0400 Respiratory rate 16 /min Racquel Cole MD Work Phone: [facility] 10-13-2021 09:50-0400 SaO2% (BldA) [Mass fraction] 99 % Racquel Cole MD Work Phone: [facility] 10-13-2021 09:50-0400 Systolic blood pressure 152 mm[Hg] Racquel Cole MD Work Phone: [facility] 09-19-2021 10:45-0400 Body height 172.72 cm Griselda Kuns Other [employer] Other 09-19-2021 10:45-0400 Body mass index (BMI) [Ratio] 26.15 kg/m2 Griselda Kuns Other [employer] Other 09-19-2021 10:45-0400 Body weight 78.02 kg Griselda Kuns Other [employer] Other 09-19-2021 10:45-0400 Diastolic blood pressure 80 mm[Hg] Griselda Kuns Other [employer] Other 09-19-2021 10:45-0400 Respiratory rate 18 /min Griselda Kuns Other [employer] Other 09-19-2021 10:45-0400 SaO2% (BldA) [Mass fraction] 99 % Griselda Kuns Other [employer] Other 09-19-2021 10:45-0400 Systolic blood pressure 140 mm[Hg] Griselda Kuns Other [employer] Other 06-30-2021 13:30-0500 Body height 172.72 cm Griselda Kuns Other [employer] Other 04-14-2021 08:45-0400 Body height 172.72 cm Griselda Kuns Other [employer] Other 04-14-2021 08:45-0400 Body mass index (BMI) [Ratio] 25.85 kg/m2 Griselda Hastings Other [employer] Other 04-14-2021 08:45-0400 Body weight 77.11 kg Griselda Hastings Other [employer] Other 04-14-2021 08:45-0400 Diastolic blood pressure 80 mm[Hg] Griseldakeith Mendezs Other [employer] Other 04-14-2021 08:45-0400 Respiratory rate 16 /min Griselda Hastings Other [employer] Other 04-14-2021 08:45-0400 SaO2% (BldA) [Mass fraction] 99 % Griselda Hastings Other [employer] Other 04-14-2021 08:45-0400 Systolic blood pressure 124 mm[Hg] Griselda Hastings Other [employer] Other Encounters Encounter Date Encounter Type Care Provider Facility Start: 04-01-2025 End: 04-01-2025 ambulatory Griselda Hastings DO Work Phone: [facility] Work Phone: Start: 04-01-2025 End: 04-01-2025 Patient encounter procedure Griselda Hastings DO -[facility] Work Phone: Start: 03-24-2025 End: 03-24-2025 ambulatory [facility] Start: 03-18-2025 End: 03-18-2025 Lorenza flowspeggy Cadena MD Work Phone: [facility] Start: 03-18-2025 End: 03-18-2025 Bamboo flowsheet Oziel Cadena MD Work Phone: [facility] Start: 03-18-2025 End: 03-18-2025 ambulatory OZIEL CADENA Not Available Comment on above: Other nerve root and plexus disorders (Primary Dx); Acute pain of left shoulder; Acute pain of right shoulder Start: 02-26-2025 End: 02-26-2025 Patient encounter procedure Griselda Hastings DO -[facility] Work Phone: Start: 02-26-2025 End: 02-26-2025 ambulatory Griseldakeith Mendezs DO Work Phone: [facility] Work Phone: Start: 02-19-2025 Patient encounter procedure Griselda Mendezs DO Work Phone: [facility] Start: 02-19-2025 End: 02-19-2025 ambulatory Griselda Mendezs DO Work Phone: [facility] Work Phone: Start: 02-19-2025 End: 02-19-2025 Patient encounter procedure Griselda Hastings DO -[facility] Work Phone: Start: 02-18-2025 Non-patient / Non-visit Mayra Arias DO -[facility] Work Phone: Start: 02-13-2025 End: 02-13-[facility] Start: 02-09-2025 End: 02-09-2025 ambulatory Sarina Ramsey MD Facility:[facility] Start: 02-04-2025 End: 02-04-2025 Clinical Support Oziel Cadena MD Work Phone: [facility] Comment on above: Acute pain of right shoulder (Primary Dx); Nerve root and plexus disorder, unspecified; Acute pain of left shoulder Start: 02-04-2025 End: 02-04-2025 Bamboo flowsheet Oziel Cadena MD Work Phone: [facility] Start: 02-04-2025 End: 02-04-2025 Bamboo flowsheet Oziel Cadena MD Work Phone: [facility] Start: 01-27-2025 Non-patient / Non-visit Sarina daniels MD -[facility] Work Phone: Start: 01-26-2025 End: 01-26-2025 [facility]ulatory [facility] Start: 01-12-2025 End: 01-12-2025 ambulatory Griseldakeith Mendezroge JOSÉ Work Phone: [facility] Work Phone: Start: 01-12-2025 End: 01-12-2025 Patient encounter procedure Solomon Mullins APRN -[facility] Work Phone: Start: 01-08-2025 [...] Bamboo flowsheet Oziel Cadena MD Work Phone: [facility] Start: 12-24-2024 End: 12-24-2024 Bamboo flowsheet Oziel Cadena MD Work Phone: [facility] Start: 12-24-2024 End: 12-24-2024 Clinical Support Oziel Cadena MD Work Phone: [facility] Comment on above: Nerve root and plexu s disorder, unspecified (Primary Dx); Acute pain of left shoulder Start: 2024 End: 2024 Patient encounter procedure Griselda Kuns DO Work Phone: [facility] Start: 2024 End: 2024 ambulatory Griselda Kuns DO Work Phone: [facility] Work Phone: Start: 11-19-2024 End: 11-19-2024 ambulatory Griselda Kuns DO Work Phone: [facility] Work Phone: Start: 11-19-2024 End: 11-19-2024 Patient encounter procedure Griselda Kuns DO Work Phone: [facility] Phys[facility] Work Phone: Start: 11-17-2024 End: 11-17-2024 ambulatory Griselda Kuns DO Work Phone: [facility] Work Phone: Start: 11-17-2024 End: 11-17-2024 Patient encounter procedure Griselda Kuns DO Work Phone: [facility] Work Phone: Start: 11-12-2024 End: 11-12-2024 Bamboo flowsheet Oziel Cadena MD Work Phone: [facility] Start: 11-12-2024 End: 11-12-2024 Bamboo flowsheet Oziel Cadena MD Work Phone: [facility] Start: 11-12-2024 End: 11-12-2024 Clinical Support Oziel Cadena MD Work Phone: [facility] Comment on above: Nerve root and plexu s disorder, unspecified (Primary Dx); Acute pain of left shoulder Start: 11-07-2024 End: 11-07-2024 ambulatory RACQUEL COLE Facility:[facility] Start: 11-05-2024 Non-patient / Non-visit Griselda Kuns DO Work Phone: [facility] Work Phone: Start: 11-05-2024 End: 11-05-2024 Admission to same day surgery center Griseldakeith Mendezs DO Work Phone: [facility] Work Phone: Start: 11-05-2024 End: 11-05-2024 ambulatory Imad Asaad Facility:[facility] Start: 11-03-2024 End: 11-03-2024 Telephone encounter Racquel Cole MD Work Phone: Hematology/Oncology Comment on above: Orders Start: 11-03-2024 Non-patient / Non-visit Griselda Andreas DO Work Phone: [facility] Work Phone: Start: 11-03-2024 ambulatory RACQUEL COLE Facilit y:[facility] Start: 11-03-2024 End: 11-03-2024 Subsequent hospital visit by physician Arrival Time Radiology Work Phone: Radiology [facility] Comment on above: 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] Start: 10-27-2024 End: 10-27-2024 ambulatory Griselda Kuns DO Work Phone: [facility] Work Phone: Start: 10-27-2024 End: 10-27-2024 Patient encounter procedure Griselda Kuns DO Work Phone: [facility] Work Phone: Start: 10-21-2024 End: 10-21-2024 Subsequent hospital visit by physician Rad External Film [facility] [employer] Comment on above: Arrived Start: 10-21-2024 End: 10-21-2024 ambulatory [facility] Start: 10-13-2024 End: 10-13-2024 Office outpatient visit 40 minutes Doretha Harris MD Work Phone: [facility] Comment on above: Status post cervical spinal fusion (Primary Dx) Start: 10-13-2024 End: 10-13-2024 ambulatory [facility] Start: 10-10-2024 End: 10-10-2024 ambulatory Griselda Kuns DO Work Phone: [facility] Work Phone: Start: 10-10-2024 End: 10-10-2024 Patient encounter procedure Griselda Kuns DO Work Phone: [facility] Physician [facility] Work Phone: Start: 10-10-2024 End: 10-10-2024 Patient encounter procedure Griselda Kuns DO Work Phone: [facility] [place] Work Phone: Start: 10-10-2024 End: 10-10-2024 ambulatory Griselda Kuns DO Work Phone: [facility] Work Phone: Start: 10-07-2024 End: 10-07-2024 Patient encounter procedure Griselda Kuns DO Work Phone: [facility] [place] Work Phone: Start: 10-07-2024 End: 10-07-2024 ambulatory Griselda Kuns DO Work Phone: [facility] Work Phone: Start: 10-06-2024 End: 10-06-2024 Emergency department patient visit Griselda Kuns DO Work Phone: [facility]Emer[facility] Work Phone: Start: 09-22-2024 End: 09-22-2024 ambulatory Sarina Ramsey MD Facility:[facility] Start: 09-20-2024 End: 09-20-2024 Emergency department patient visit Griselda Andreas DO Work Phone: [facility] Work Phone: Start: 09-15-2024 End: 09-15-2024 ambulatory Sarina Ramsey MD Facility:[facility] Start: 09-11-2024 End: 09-11-2024 Bamboo flowsheet Oziel Cadena MD Work Phone: [facility] Start: 09-11-2024 End: 09-11-2024 Bamboo flowsheet Oziel Cadena MD Work Phone: [facility] Start: 09-11-2024 End: 09-11-2024 Clinical Support Oziel Cadena MD Work Phone: [facility] Comment on above: Nerve root and plexu s disorder, unspecified (Primary Dx) Start: 09-11-2024 End: 09-11-2024 Patient encounter procedure Griselda Kuns DO Work Phone: [facility] Vascular Surg Work Phone: Start: 09-11-2024 End: 09-11-2024 ambulatory Griselda Kuns DO Work Phone: [facility] Work Phone: Start: 07-31-2024 End: 07-31-2024 Bamboo flowsheet Oziel Cadena MD Work Phone: [facility] Start: 07-31-2024 End: 07-31-2024 Bamboo flowsheet Oziel Cadena MD Work Phone: [facility] Start: 07-31-2024 End: 07-31-2024 Clinical Support Oziel Cadena MD Work Phone: [facility] Comment on above: Nerve root and plexu s disorder, unspecified (Primary Dx) Start: 07-28-2024 End: 07-28-2024 ambulatory Sarina Ramsey MD Facility: [facility] Start: 07-07-2024 End: 07-07-2024 ambulatory Sarina Ramsey MD Facility: [facility] Start: 07-03-2024 End: 07-03-2024 ambulatory Griselda Hastings DO Work Phone: [facility] Work Phone: Start: 07-03-2024 End: 07-03-2024 Patient encounter procedure Griselda Hastings DO Work Phone: [facility] [place] Work Phone: Start: 07-02-2024 End: 07-02-2024 Bamboo flowsheet Oziel Cadena MD Work Phone: [facility] Start: 07-02-2024 End: 07-02-2024 Bamboo flowsheet Oziel Cadena MD Work Phone: [facility] Start: 07-02-2024 End: 07-02-2024 Clinical Support Oziel Cadena MD Work Phone: [facility] Comment on above: Nerve root and plexu s disorder, unspecified (Primary Dx) Start: 06-30-2024 End: 06-30-2024 Postop follow up visit related to original px Doretha Harris MD Work Phone: [facility] Comment on above: Status post cervical spinal fusion (Primary Dx) Start: 06-30-2024 End: 06-30-2024 ambulatory [facility] Start: 06-24-2024 End: 06-24-2024 Patient encounter procedure Griseldakeith Mendezs DO Work Phone: [facility] Work Phone: Start: 06-24-2024 End: 06-24-2024 ambulatory Griseldakeith Mendezs DO Work Phone: [facility] Work Phone: Start: 05-21-2024 End: 05-21-2024 Bamboo flowsheet Oziel Cadena MD Work Phone: [facility] Start: 05-21-2024 End: 05-21-2024 Bamboo flowsheet Oziel Cadena MD Work Phone: [facility] Start: 05-21-2024 End: 05-21-2024 Clinical Support Oziel Cadena MD Work Phone: [facility] Comment on above: Other nerve root and plexus disorders (Primary Dx); Cervical paraspinal muscle spasm; Cervical stenosis of spinal canal Start: 04-30-2024 End: 04-30-2024 Postop follow up visit related to original px Solomon Okeeferoge PA-C Work Phone: [facility] Comment on above: Cervical radiculopat hy (Primary Dx); Status post cervical spinal fusion; Acute postoperative pain; Muscle spasms of neck Start: 04-30-2024 End: 04-30-2024 ambulatory [facility] Ambulatory Start: 04-28-2024 End: 04-28-2024 ambulatory [facility] Work Phone: Start: 04-28-2024 End: 04-28-2024 Patient encounter procedure [facility] Work Phone: Start: 04-09-2024 End: 04-10-2024 ambulatory DORETHA HARRIS [facility] Start: 04-09-2024 End: 04-10-2024 Evaluation and management of inpatient Doretha Harris MD Work Phone: [facility] [place] 4 Comment on above: Cervical radiculopat hy (Primary Dx); Senile osteoporosis Start: 04-01-2024 End: 04-01-2024 ambulatory [facility] Work Phone: Start: 04-01-2024 End: 04-01-2024 Patient encounter procedure [facility] [place] Work Phone: Start: 03-31-2024 End: 03-31-2024 Subsequent hospital visit by physician Rad External Film EF RAD EXTERNAL FILM VIRTUAL Comment on above: Arrived Start: 03-31-2024 End: 03-31-2024 ambulatory [facility] Start: 03-26-2024 End: 03-26-2024 ambulatory [facility] Start: 03-19-2024 End: 03-19-2024 ambulatory [facility] Start: 02-13-2024 End: 02-13-2024 Subsequent hospital visit by physician Kasey X-Ray 1 [facility] Comment on above: Cervical radiculopat hy Start: 02-13-2024 End: 02-13-2024 ambulatory [facility] Start: 02-13-2024 End: 02-13-2024 [facility] Start: 02-11-2024 End: 02-12-2024 ambulatory [facility] Start: 02-11-2024 End: 02-11-2024 ambulatory [facility] Start: 02-11-2024 End: 02-11-2024 Subsequent hospital visit by physician Daniel [id number] Cr Nonv1 Holter/Ecg Resource [facility] Comment on above: Cervical radiculopat hy; Senile osteoporosis Start: 02-04-2024 End: 02-04-2024 ambulatory [facility] Start: 01-31-2024 End: 01-31-2024 [facility] Work Phone: Start: 01-31-2024 End: 01-31-2024 [facility] [place] Work Phone: Start: 01-03-2024 End: 01-03-2024 Office outpatient new 60 minutes Doretha Harris MD Work Phone: [facility] Comment on above: Cervical radiculopat hy (Primary Dx); Senile osteoporosis Start: 12-13-2023 End: 12-13-2023 Office outpatient visit 40 minutes Helder Jack MD Work Phone: [facility] 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) Start: 12-13-2023 End: 12-13-2023 ambulatory HELDER JACK [facility] Start: 12-13-2023 End: 12-13-2023 Subsequent hospital visit by physician [facility] 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) Start: 12-13-2023 End: 12-13-2023 ambulatory SHIMON HEATON [facility] Start: 12-12-2023 End: 12-12-2023 Office outpatient new 45 minutes Solomon Narayanan PA-C Work Phone: [facility] Comment on above: Cervical radiculopat hy (Primary Dx); Occipital neuralgia of left side; Balance problem Start: 12-03-2023 End: 12-03-2023 ambulatory DO Griselda Mendezs Work Phone: [facility] Work Phone: Start: 12-03-2023 End: 12-03-2023 Patient encounter procedure DO Griselda Mendezs Work Phone: [facility] [place] Work Phone: Start: 11-02-2023 End: 11-02-2023 Office outpatient visit 25 minutes Racquel Cole MD Work Phone: Hematology/Oncology Comment on above: 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) Start: 10-29-2023 End: 10-29-2023 ambulatory DO Griseldakeith Mendezs Work Phone: [facility] Work Phone: Start: 10-29-2023 End: 10-29-2023 Patient encounter procedure DO Griseldakeith Mendezs Work Phone: [facility] [place] Work Phone: Start: 10-26-2023 Non-patient / Non-visit DO Katy keith Kuns Work Phone: [facility] Work Phone: Start: 10-26-2023 End: 10-26-2023 Subsequent hospital visit by physician Arrival Time Radiology Work Phone: [facility] Comment on above: 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] Start: 10-18-2023 End: 10-18-2023 Patient encounter procedure DO Griseldakeith Mendezs Work Phone: [facility] Cardiology Work Phone: Start: 10-09-2023 End: 10-09-2023 ambulatory DO Griseldakeith Hastings Work Phone: [facility] Work Phone: Start: 10-09-2023 End: 10-09-2023 Patient encounter procedure DO Griseldakeith Mendezs Work Phone: [facility]-XRay [address] [place] Work Phone: Start: 10-05-2023 End: 10-05-2023 Office outpatient new 60 minutes Helder Jack MD Work Phone: [facility] Comment on above: Brainstem lesion (Pr imary Dx); Pontine glioma (Multi) Start: 09-19-2023 End: 09-19-2023 Subsequent hospital visit by physician Rad External Film EF RAD EXTERNAL [employer]M [employer] Comment on above: Arrived Start: 09-05-2023 End: 09-05-2023 ambulatory DO Grisleda Kuns Work Phone: [facility] Work Phone: Start: 09-05-2023 End: 09-05-2023 Patient encounter procedure DO Griselda Kuns Work Phone: [facility] Cardiology Work Phone: Start: 09-05-2023 End: 09-05-2023 ambulatory DO Griselda Kuns Work Phone: [facility] Work Phone: Start: 09-05-2023 End: 09-05-2023 Patient encounter procedure DO Griselda Kuns Work Phone: [facility] Vascular Surgery Work Phone: Start: 08-15-2023 End: 08-15-2023 Patient encounter procedure DO Griselda Kuns Work Phone: [facility] [place] Work Phone: Start: 08-02-2023 End: 08-02-2023 ambulatory DO Griselda Kuns Work Phone: [facility] Work Phone: Start: 08-02-2023 End: 08-02-2023 Patient encounter procedure DO Griselda Kuns Work Phone: [facility] [place] Work Phone: Start: 07-26-2023 Chart abstracting Nikole Mota ACCOUNTING ASSOCIATE Work Phone: [facility] 210 Start: 07-19-2023 Bamboo flowsheet Nikole Mota ACCOUNTING ASSOCIATE Work Phone: [facility] Start: 07-19-2023 Bamboo flowsheet Nikole Mota ACCOUNTING ASSOCIATE Work Phone: [facility] Start: 07-18-2023 End: 07-21-2023 ambulatory JOSE CRUZ KHAN [facility] Start: 07-02-2023 End: 07-02-2023 ambulatory Griselda Kuns Other [employer] Other Start: 07-02-2023 Office outpatient vi sit 25 minutes Griselda Kuns [facility] [place] Start: 07-02-2023 End: 07-02-2023 Patient encounter procedure DO Griselda Kuns Work Phone: [facility] Work Phone: Start: 05-31-2023 End: 05-31-2023 ambulatory Griselda Kuns Other [employer] Other Start: 05-31-2023 Office outpatient vi sit 25 minutes Griselda Kuns [facility] Start: 05-30-2023 Office outpatient vi sit 15 minutes Ruddy Harvey [facility] V[facility] Surgery Start: 05-30-2023 End: 05-30-2023 ambulatory DO Griselda Kuns Work Phone: [employer] Other Start: 05-30-2023 End: 05-31-2023 Patient encounter procedure DO Griselda Kuns Work Phone: [facility]-Ultrasound [facility] Vascular Start: 05-30-2023 End: 05-30-2023 Patient encounter procedure DO Griselda Kuns Work Phone: [facility] Phys[facility] Vascular Surgery Work Phone: Start: 05-15-2023 End: 05-15-2023 ambulatory Lilliam Cason Other [employer] Other Start: 05-15-2023 Office outpatient vi sit 25 minutes Lilliam Cason [facility] Start: 05-15-2023 Telephone encounter Lilliam Cason G Assistant [employer] Start: 05-15-2023 End: 05-15-2023 Patient encounter procedure DO Griselda Kuns Work Phone: [facility] Work Phone: Start: 05-07-2023 End: 05-07-2023 Admission to same day surgery center DO Griselda Kuns Work Phone: [facility]-Interventional Radiology Work Phone: Start: 05-07-2023 End: 05-07-2023 ambulatory DO Griselda Kuns Work Phone: [facility] Work Phone: Start: 05-04-2023 End: 05-04-2023 ambulatory DO Griselda Kuns Work Phone: [facility] Work Phone: Start: 05-04-2023 End: 05-04-2023 Patient encounter procedure DO Griselda Kuns Work Phone: [facility]-CT Scan [facility] [place] Work Phone: Start: 05-03-2023 End: 05-03-2023 ambulatory Ruddy Harvey Other [employer] Other Start: 05-03-2023 Office outpatient ne w 45 minutes Ruddy Harvey [facility] Vascular Surgery Start: 05-03-2023 Telephone encounter Ruddy Bond [facility] Assistant [employer]enger [employer] Engineer Start: 05-01-2023 End: 05-01-2023 ambulatory Griselda Kuns Other [employer] Other Start: 05-01-2023 Office outpatient vi sit 25 minutes Griseldakeith Mendezs [facility] [place] Start: 04-25-2023 End: 04-25-2023 ambulatory DO Griselda Kuns Work Phone: [facility] Work Phone: Start: 04-25-2023 End: 04-25-2023 Patient encounter procedure DO Griselda Kuns Work Phone: [facility]-Ultrasound [facility] [place] Work Phone: Start: 04-12-2023 End: 04-12-2023 ambulatory Lilliam Cason Other [employer] Other Start: 04-12-2023 Telephone encounter Lilliam Cason [facility] Card[facility] Start: 04-11-2023 End: 04-11-2023 ambulatory Lilliam Cason Other [employer] Other Start: 04-11-2023 Office outpatient ne w 45 minutes Lilliam Cason [facility] Start: 04-10-2023 End: 04-10-2023 ambulatory Griselda Kuns Other [employer] Other Start: 04-10-2023 Telephone encounter Griseldakeith Mendezs [facility] Medicine [place] Start: 03-30-2023 End: 03-30-2023 ambulatory DO Griselda Kuns Work Phone: [facility] Work Phone: Start: 03-30-2023 End: 03-30-2023 Patient encounter procedure DO Griselda Kuns Work Phone: [facility]-Lab [facility] [place] Work Phone: Start: 03-21-2023 End: 03-21-2023 Emergency department patient visit DO Griselda Kuns Work Phone: [facility]-Emergency Room Work Phone: Start: 03-15-2023 End: 03-15-2023 ambulatory Griselda Kuns Other [employer] Other Start: 03-15-2023 Office outpatient vi sit 25 minutes Griselda Kuns [facility] [place] Start: 03-08-2023 End: 03-08-2023 ambulatory Griselda Kuns Other [employer] Other Start: 03-08-2023 Office outpatient vi sit 25 minutes Griselda Kuns [facility] Start: 02-26-2023 End: 02-26-2023 Emergency department patient visit DO Griselda Kuns Work Phone: [facility]-Emergency Room Work Phone: Start: 12-28-[address] BRET Lawrence ity:UNKNOWN Start: 12-05-2022 End: 12-05-2022 ambulatory Griselda Kuns Other [facility] [employer] Other Start: 12-05-2022 Office outpatient vi sit 25 minutes Griselda Kuns [facility] Start: 11-15-2022 End: 11-15-2022 ambulatory DO Griselda Kuns Work Phone: [facility] Work Phone: Start: 11-15-2022 End: 11-15-2022 Patient encounter procedure DO Griselda Kuns Work Phone: [facility]-MRI [address] Work Phone: Start: 10-27-2022 End: 10-27-2022 Subsequent hospital visit by physician Arrival Time Radiology Work Phone: [facility] Comment on above: Malignant neoplasm o f head, 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] Start: 10-24-2022 End: 10-24-2022 ambulatory DO Griselda Kuns Work Phone: [facility] Work Phone: Start: 10-24-2022 End: 10-24-2022 Patient encounter procedure DO Griselda Kuns Work Phone: [facility]-Lab [place] Work Phone: Start: 09-28-2022 End: 09-28-2022 ambulatory FLORES CAT Facility:[facility] Start: 09-22-2022 End: 09-22-2022 Subsequent hospital visit by physician Mri David (I-Stat/3t) Work Phone: Radiology Comment on above: 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] Start: 09-18-2022 Telephone encounter Kelly ghosh PA-C Work Phone: [facility] Comment on above: Patient Question Start: 09-13-2022 End: 09-13-2022 Patient encounter procedure Kelly Perez PA-C Work Phone: [facility] Comment on above: NPH (normal pressure hydrocephalus) (HCC) (Primary Dx) Start: 08-31-2022 End: 08-31-2022 ambulatory Griselda Kuns Other [employer] Other Start: 08-31-2022 Office outpatient vi sit 25 minutes Griselda Kuns [facility] Start: 08-01-2022 End: 08-01-2022 ambulatory Griselda Kuns Other [employer] Other Start: 08-01-2022 Office outpatient vi sit 25 minutes Griselda Kuns [facility] Start: 07-17-2022 End: 07-17-2022 ambulatory DO Griselda Kuns Work Phone: [facility] Work Phone: Start: 07-17-2022 End: 07-17-2022 Patient encounter procedure DO Griselda Kuns Work Phone: [facility]-XRay [address] [place] Work Phone: Start: 07-14-2022 End: 07-14-2022 Patient encounter procedure DO Griselda Kuns Work Phone: [facility]-CT Scan [facility] [place] Work Phone: Start: 06-28-2022 End: 06-28-2022 ambulatory Trish Carney Other [employer] Other Start: 06-28-2022 Office outpatient ne w 45 minutes Trish Carney [facility] Neurosurgery Start: 05-26-2022 End: 05-26-2022 ambulatory Griselda Kuns Other [employer] Other Start: 05-26-2022 Office outpatient vi sit 25 minutes Griselda Kuns [facility] Start: 05-17-2022 End: 05-17-2022 ambulatory DO Griselda Kuns Work Phone: [facility] Work Phone: Start: 05-17-2022 End: 05-17-2022 Discharged Recurring DO Griselda Kuns Work Phone: [facility]-Physical Therapy [address] Start: 04-27-2022 Registered Recurring DO Griselda Kuns Work Phone: [facility]-Physical Therapy [address] Start: 04-16-2022 End: 04-17-2022 Emergency department patient visit DO Griselda Kuns Work Phone: [facility]-Emergency Room Start: 04-10-2022 End: 04-10-2022 ambulatory Griselda Kuns Other [facility] [employer] Other Start: 04-10-2022 Telephone encounter Griselda Kuns [facility] Start: 04-06-2022 End: 04-06-2022 Emergency department patient visit DO Griselda Kuns Work Phone: [facility]-Emergency Room Start: 03-27-2022 Telephone encounter Asya Reynolds RN Hematology/Oncology Comment on above: Appointment Start: 03-22-2022 End: 03-22-2022 ambulatory Griselda Kuns Other [employer] Other Start: 03-22-2022 Telephone encounter Griselda Kuns [facility] Start: 03-16-2022 End: 03-16-2022 ambulatory Griselda Kuns Other [employer] Other Start: 03-16-2022 Office outpatient vi sit 25 minutes Griselda Kuns [facility] Start: 03-16-2022 Telephone encounter Self [facility] Comment on above: Triage (Internal Ref erral--old) Start: 03-09-2022 End: 03-09-2022 ambulatory Griselda Kuns Other [employer] Other Start: 03-09-2022 Telephone encounter Griselda Kuns [facility] Start: 03-07-2022 End: 03-07-2022 ambulatory Griselda Kuns Other [employer] Other Start: 03-07-2022 Telephone encounter Griselda Kuns [facility] Start: 03-03-2022 Telephone encounter Griselda Kuns [facility] Start: 03-03-2022 End: 03-03-2022 ambulatory DO Griselda Kuns Work Phone: [employer] Other Start: 03-03-2022 End: 03-03-2022 Discharged Recurring DO Griselda Kuns Work Phone: [facility]-Physical Therapy [address] Start: 03-03-2022 Registered Recurring DO Griselda Kuns Work Phone: [facility]-Physical Therapy [address] Start: 02-07-2022 End: 02-07-2022 ambulatory Griselda Kuns Other [employer] Other Start: 02-07-2022 Telephone encounter Griselda Kuns [facility] Start: 01-30-2022 End: 01-30-2022 ambulatory Griselda Kuns Other [employer] Other Start: 01-30-2022 Office outpatient vi sit 25 minutes Griselda Kuns [facility] Start: 01-12-2022 End: 01-12-2022 ambulatory Griselda Kuns Other [employer] Other Start: 01-12-2022 Telephone encounter Griselda Kuns [employer] [place] Start: 12-26-2021 End: 12-26-2021 ambulatory Grisedla Kuns Other [employer] Other Start: 12-26-2021 Office outpatient vi sit 25 minutes [facility] Start: 12-23-2021 End: 12-23-2021 ambulatory Griselda Kuns Other [employer] Other Start: 12-23-2021 Telephone encounter [facility] Start: 12-05-2021 End: 12-05-2021 ambulatory Griselda Kuns Other [employer] Other Start: 12-05-2021 Office outpatient vi sit 25 minutes [facility] Start: 12-05-2021 Telephone encounter [facility] Start: 11-22-2021 End: 11-22-2021 ambulatory Griselda Kuns Other [employer] Other Start: 11-22-2021 Telephone encounter Griselda Kuns [facility] Start: 11-21-2021 Office outpatient vi sit 15 minutes Griselda R Kuns Work Phone: [facility] Work Phone: Start: 11-09-2021 End: 11-09-2021 ambulatory Griselda Kuns Other [employer] Other Start: 11-09-2021 Telephone encounter [facility] Start: 11-08-2021 End: 11-08-2021 ambulatory Griselda Kuns Other [employer] Other Start: 11-08-2021 Office outpatient vi sit 25 minutes Griselda Andreas [facility] Start: 11-03-2021 Office consultation new/estab patient 60 min Griselda R Andreas Work Phone: [facility] Work Phone: Start: 11-01-2021 End: 11-01-2021 ambulatory Griselda Kuns Other [employer] Other Start: 11-01-2021 Office outpatient vi sit 25 minutes Griselda Kuns [facility] Start: 10-31-2021 End: 10-31-2021 ambulatory Sheng Schneider Other [employer] Other Start: 10-31-2021 Telephone encounter Sheng Clark [facility] Neurosurgery Start: 10-27-2021 End: 10-27-2021 ambulatory Racquel Cole MD Work Phone: Hematology/Oncology Comment on above: 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 Comment on above: Referral Information (Neurosurgery) Start: 10-13-2021 End: 10-13-2021 ambulatory Racquel Cole MD Work Phone: Hematology/Oncology Comment on above: Glioma of brain (HCC ) (Primary Dx); Lung nodules; Primary squamous cell carcinoma of head and neck (HCC) Start: 10-13-2021 End: 10-13-2021 Patient encounter procedure Racquel Cole MD Work Phone: [place] Start: 10-06-2021 End: 10-06-2021 ambulatory Griselda Kuns Other [employer] Other Start: 10-06-2021 Telephone encounter Asya Kumar RN Hematology/Oncology Comment on above: Results Start: 10-06-2021 End: 10-06-2021 Subsequent hospital visit by physician Arrival Time Radiology Work Phone: Radiology [facility] Comment on above: Malignant neoplasm o f head, 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] Start: 09-29-2021 End: 09-29-2021 ambulatory Griselda Kuns Other [employer] Other Start: 09-29-2021 Telephone encounter Griselda Kuns [facility] Start: 09-27-2021 End: 09-27-2021 ambulatory Griselda Kuns Other [employer] Other Start: 09-27-2021 Telephone encounter Griselda Kuns [facility] Start: 09-19-2021 End: 09-19-2021 ambulatory Griselda Kuns Other [employer] Other Start: 09-19-2021 Office outpatient vi sit 25 minutes Griselda Kuns [facility] Start: 09-12-2021 End: 09-12-2021 ambulatory Griselda Kuns Other [employer] Other Start: 09-12-2021 Telephone encounter Griselda Kuns [facility] Start: 09-08-2021 End: 09-08-2021 ambulatory Griselda Kuns Other [employer] Other Start: 09-08-2021 Telephone encounter Griselda Andreas [facility] Start: 06-30-2021 End: 06-30-2021 ambulatory Griselda Kuns Other [employer] Other Start: 06-30-2021 Office outpatient vi sit 15 minutes Griselda Andreas [facility] Start: 06-30-2021 Telephone encounter Griselda Andreas [facility] Start: 06-29-2021 End: 06-29-2021 ambulatory Griselda Andreas Other [employer] Other Start: 06-29-2021 Nursing evaluation o f patient and report Griselda Andreas [facility] Start: 04-19-2021 End: 04-19-2021 ambulatory Griselda Andreas Other [employer] Other Start: 04-19-2021 Nursing evaluation o f patient and report Griselda Andreas [facility] Start: 04-19-2021 Telephone encounter Griselda Andreas [facility] Start: 04-14-2021 Office outpatient vi sit 15 minutes [facility] Start: 10-01-2020 End: 10-01-2020 Patient encounter procedure Griselda Hastings Work Phone: -Electrodiagnostics Start: 09-20-2020 End: 09-20-2020 Patient encounter procedure Griselda Hastings -Lab [facility] Start: 09-13-2020 End: 09-13-2020 Patient encounter procedure Griselda Hastings -XRay [address] [place] Procedures Date Procedure Procedure Detail Performing Clinician [...] 02-12-2026 Screening for osteoporosis Bone Density Scan [facility] Start: 01-08-2026 End: 01-08-2026 Patient encounter procedure TRENT ZEE Start: 04-30-2025 End: 04-30-2025 Clinical Support 04/30/2025 2:00 PM EST Clinical Support [facility] [address] [facility] [address] [place] [address] Oziel Cadena MD [address] [place] [address] [place] [id number] [facility] Start: 04-06-2025 End: 04-06-2025 Patient encounter procedure 04/06/2025 9:30 AM EDT Office Visit [address] [place] [id number] Doretha Harris MD [address] [facility], [place] [id number] [facility] Start: 03-18-2025 End: 03-18-2025 Clinical Support 03/18/2025 2:20 PM EDT Clinical Support [facility] [address] [place] [address] Oziel Cadena MD [address] [place] [address] [place] [id number] [facility] Start: 03-18-2025 End: 03-18-2025 Clinical Support 03/18/2025 11:30 AM EDT Clinical Support [facility] [place] [facility] [address] [place] [address] Oziel Cadena MD [address] [place] [address] [place] [id number] Arrived [facility] Comment on above: Arrived Start: 02-26-2025 Ankle brachial pressure index [facility] Start: 02-16-2025 Influenza vaccination [facility] Start: 02-04-2025 End: 02-04-2025 Clinical Support [facility] [...] followup after ct and lab Start: 11-05-2024 [facility] Start: 11-03-2024 End: 02-02-2025 Comprehensive metabolic 2000 panel - Serum or Plasma COMPREHENSIVE METABOLIC PANEL Lab Routine 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) Expected: 11/03/2024 (Approximate), Expires: 02/02/2025 [facility] Work Phone: Comment on above: Expected: 11/03/2024 (Approximate), Expi res: 02/02/2025 Start: 11-03-2024 End: 11-03-2024 Patient encounter procedure 11/03/2024 9:00 AM EDT Appointment Radiology Pet CT [address] [place] [address] [place] [address] Ct Chest and neck with contrast and [...] neck (HCC) Expected: 11/01/2024 (Approximate), Expires: 12/01/2024 [facility] Work Phone: Comment on above: Expected: 11/01/2024 (Approximate), Expi res: 12/01/2024 Start: 10-10-2024 X-ray of cervical spine XR cervical spine 2V [facility] Start: 10-10-2024 XR Cervical spine 2 Views [facility] Start: 10-06-2024 DIABETES SCREEN DIABETES SCREEN [facility] Start: 09-29-2024 End: 09-29-2024 Patient encounter procedure 09/29/2024 11:00 AM EDT Office Visit [facility] [address] [facility] [address] [place] [phone] Doretha Harris MD [address] [facility], [address] [place], [place] [id number] [facility] Start: 09-11-2024 End: 09-11-2024 Clinical Support 09/11/2024 10:40 AM EDT Clinical Support [facility] [address] [place] [address] Oziel Cadena MD [address] [facility] [address] [place] [address] [facility] Start: 09-11-2024 Ankle brachial pressure index US ankle/arm indices [facility] Start: 07-31-2024 End: 07-31-2024 Clinical Support [facility] Comment on above: Arrived Start: 07-02-2024 End: 07-02-2024 Clinical Support [facility] Comment on above: Arrived Start: 06-30-2024 End: 06-30-2025 XR Cervical spine 2 or 3 Views XR cervical spine 2-3 views Imaging Routine Status post cervical spinal fusion Expected: 06/30/2024, Expires: 06/30/2025 [facility] Service Area Work Phone: Comment on above: Expected: 06/30/2024, Expires: Start: 06-30-2024 End: 06-30-2024 Patient encounter procedure [facility] Start: 05-21-2024 End: 05-21-2024 Clinical Support 05/21/2024 2:00 PM EST Clinical Support [facility] [address] [facility] [address] [place] [address] Oziel Cadena MD [address] [address] Arrived [facility] Comment on above: Arrived Start: 05-16-2024 End: 05-16-2024 Patient encounter procedure 05/16/2024 9:15 AM EST Office Visit [facility] [address] [facility] [address] [place] [address] Doretha Harris MD [address] [facility], [address] [place] [address] [facility] Start: 05-02-2024 End: 05-02-2024 Patient encounter procedure [facility] Start: 04-30-2024 End: 04-30-2025 XR Cervical spine 2 or 3 Views XR cervical spine 2-3 views Imaging Routine Cervical radiculopathy Status post cervical spinal fusion Expected: 04/30/2024, Expires: 04/30/2025 [facility] Service Area Work Phone: Comment on above: Expected: 04/30/2024, Expires: Start: 04-30-2024 End: 04-30-2024 Patient encounter procedure 04/30/2024 1:00 PM EST Office Visit [facility] [address] [place] [phone] Solomon Narayanan PA-C [address] [place] [address] [facility] Start: 04-09-2024 End: 04-09-2024 Admission to same day surgery center 04/09/2024 7:45 AM EDT - 04/09/2024 12:25 PM EDT [place] [address] [place] [address] Doretha Harris MD [address] [facility], [address] [place] [address] Fusion Spine Anterior Cervical and Discectomy C5-6, C6-7 [74932 (CPT )] [facility] [place] Comment on above: Fusion Spine Anterior Cervical and Disce ctomy C5-6, C6-7 [52313 (CPT )] Start: 04-09-2024 End: 04-09-2024 Arthrd ant interbody decompress cervical belw c2 Fusion Spine Anterior Cervical and Discectomy Cervical radiculopathy Senile osteoporosis 04/09/2024 7:45 AM EDT [facility] [place] Start: 04-09-2024 Subsequent hospital visit by physician 04/09/2024 7:45 AM EDT Hospital [place] [address] [place] [address] Doretha Harris MD [address] [facility], [address] [place] [address] [facility] [place] Start: 03-15-2024 DTaP/Tdap/Td Vaccines (2 - Td or Tdap) DTaP/Tdap/Td Vaccines (2 - Td or Tdap) [facility] Start: 03-15-2024 Urine microalbumin profile DTaP,Tdap,Td Vaccine (2 - Td or Tdap) [facility] Start: 03-11-2024 End: 03-11-2024 Patient encounter procedure 03/11/2024 11:30 AM EDT Office Visit [address] [place] [address] Solomon Narayanan PA-C [address] [facility] [place], [place] [phone] [facility] Start: 03-03-2024 Influenza vaccination Influenza Vaccine (#1) [facility] Comment on above: Postponed from 02/16/2023 (Patient Refus ed) Start: 02-27-2024 End: 02-27-2024 Admission to same day surgery center [facility] [place] Comment on above: Anterior Cervical Discectomy and Fusion C5-6, C6-7 [03078 (CPT )] Start: 02-27-2024 End: 02-27-2024 Arthrd ant interbody decompress cervical belw c2 [facility] [place] Start: 02-27-2024 Subsequent hospital visit by physician [facility] [place] Start: 02-17-2024 COVID-19 Vaccine ( season) COVID-19 Vaccine ( season) [facility] Start: 02-17-2024 Covid-19 Vaccine ( season) Covid-19 Vaccine ( season) [facility] Start: 02-17-2024 Covid-19 Vaccine ( season) Covid-19 Vaccine ( season) [facility] Start: 02-17-2024 Influenza vaccination [facility] Start: 02-15-2024 End: 02-15-2024 Patient encounter procedure 02/15/2024 9:00 AM EDT Office Visit [address] [place] [address] Vincenzo Sanchez MD [address] [place] [address] [address], [address] [place] [address] [facility] Start: 02-13-2024 End: 02-13-2024 Patient encounter procedure 02/13/2024 11:00 AM EDT Appointment [facility] [address] [place] [phone] [facility] Start: 02-03-2024 End: 01-02-2025 Nicotine and Metabolites,S Nicotine and Metabolites,S Lab Routine Cervical radiculopathy Senile osteoporosis Expected: 02/03/2024 (Approximate), Expires: 01/02/2025 [facility] Work Phone: Comment on above: Expected: 02/03/2024 (Approximate), Expi res: 01/02/2025 Start: 01-03-2024 End: 01-02-2025 DXA Skeletal system.axial Views for bone density XR DEXA bone density axial skeleton w VFA Imaging Routine Senile osteoporosis Expected: 01/03/2024, Expires: 01/02/2025 [facility] Service Area Work Phone: Comment on above: Expected: 01/03/2024, Expires: 5 Start: 01-03-2024 End: 01-02-2025 XR Cervical spine 6 Views XR cervical spine complete 6+ views Imaging Routine Cervical radiculopathy Expected: 01/03/2024, Expires: 01/02/2025 [facility] Work Phone: Comment on above: Expected: 01/03/2024, Expires: 5 Start: 01-03-2024 End: 01-03-2024 Patient encounter procedure 01/03/2024 1:30 PM EDT Office Visit [facility] [address] [phone] Doretha Harris MD [address] [facility], [address] [address] [facility] Start: 12-13-2023 End: 12-12-2024 MR Brain WO and W contrast IV MR brain w and wo IV contrast Imaging Routine Pontine glioma (Multi) Expected: 12/13/2023 (Approximate), Expires: 12/12/2024 [facility] Service Area Work Phone: Comment on above: Expected: 12/13/2023 (Approximate), Expi res: 12/12/2024 Start: 12-13-2023 End: 12-13-2023 Patient encounter procedure [facility] Start: 09-28-2023 End: 09-28-2023 Patient encounter procedure 09/28/2023 10:15 AM EDT Office Visit [facility] [address] [place] [phone] [place] [address] Department [place] [address] [facility] Start: 09-05-2023 Ankle brachial pressure index [facility] Start: 08-30-2023 End: 08-30-2023 Patient encounter procedure 08/30/2023 9:40 AM EDT Office Visit [facility] [address] [facility] [address] [place] [phone] Nikole Mota NP [address] [place] [address] [facility] Start: 07-26-2023 End: 07-26-2023 Patient encounter procedure 07/26/2023 1:30 PM EST Procedure Visit [facility] [address] [place] [phone] Nikole Mota NP [address] [place] [address] [facility] [address] Start: 07-19-2023 End: 07-19-2023 Clinical Support 07/19/2023 1:30 PM EST Clinical Support [facility] [address] [place] [address] Nikole Mota, ACCOUNTING ASSOCIATE [address] [phone] Cervical dystonia [facility] Comment on above: Cervical dystonia Start: 06-18-2023 Behavioral Health Screening Behavioral Health Screening [facility] Start: 05-07-2023 Pulse volume recorder pneumoplethysmography US arterial pvr rest [facility] Start: 05-07-2023 [facility] Start: 05-07-2023 [facility] Start: 04-25-2023 Pulse volume recorder pneumoplethysmography US arterial pvr rest [facility] Start: 02-16-2023 COVID-19 Vaccine ( season) COVID-19 Vaccine ( season) [facility] Start: 02-16-2023 Influenza vaccination INFLUENZA (Season Ended) [facility] Start: 2022 RSV High Risk: (Elderly (60+) or Population) (1 - Risk 60-74 years 1-dose series) RSV High Risk: (Elderly (60+) or Population) (1 - Risk 60-74 years 1-dose series) [facility] Start: 2022 RSV patients and/or patients aged 60+ years (1 - 1-dose 60+ series) RSV patients and/or patients aged 60+ years (1 - 1-dose 60+ series) [facility] Start: 2022 RSV Vaccine (1 - [...] neck (HCC) Expected: 10/30/2022 (Approximate), Expires: 10/30/2022 [facility] Work Phone: Comment on above: Expected: 10/30/2022 (Approximate), Expi res: 10/30/2022 Start: 10-30-2022 End: 10-30-2022 Comprehensive metabolic 2000 panel - Serum or Plasma COMP METABOLIC PANEL Lab Routine 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) Lung nodules Malignant neoplasm of head, face and neck (HCC) Expected: 10/30/2022 (Approximate), Expires: 10/30/2022 [facility] Work Phone: Comment on above: Expected: 10/30/2022 (Approximate), Expi res: 10/30/2022 Start: 10-30-2022 End: 11-29-2022 Ct soft tissue neck w/contrast material CT NECK SOFT TISSUE W IVCON Radiology Routine Malignant neoplasm of head, face and neck (HCC) Expected: 10/30/2022 (Approximate), Expires: 11/29/2022 [facility] Work Phone: Comment on above: Expected: 10/30/2022 (Approximate), Expi res: 11/29/2022 Start: 10-30-2022 End: 11-29-2022 Ct thorax w/contrast material CT CHEST W IVCON Radiology Routine Lung nodules Expected: 10/30/2022 (Approximate), Expires: 11/29/2022 [facility] Work Phone: Comment on above: Expected: 10/30/2022 (Approximate), Expi res: 11/29/2022 Start: 10-13-2022 Adult depression screening assessment DEPRESSION SCREENING [facility] Start: 07-17-2022 Aerobic Culture Aerobic Culture [facility] Start: 07-17-2022 Anaerobic Culture Anaerobic Culture [facility] Start: 07-17-2022 Microscopic observation [Identifier] in Unspecified specimen by Gram stain [facility] Start: 07-17-2022 Cerebrospinal fluid culture [facility] Start: 07-17-2022 End: 07-17-2022 [facility] Start: 07-17-2022 [facility] Start: 06-18-2022 DEPRESSION ASSESSMENT DEPRESSION ASSESSMENT [facility] Start: 04-16-2022 Plain chest X-ray XR ribs LT min 3V w CXR1V* [facility] Start: 04-16-2022 XR Unspecified body region Views [facility] Start: 02-16-2022 [facility] malignant neoplasm of lung Lung Cancer Screening [facility] Start: 2012 SHINGRIX VACCINE (1 of 2) SHINGRIX VACCINE (1 of 2) [facility] Start: 2012 Zoster Vaccines (1 of 2) Zoster Vaccines (1 of 2) [facility] Start: 11-25-2007 COLOGUARD (FIT-DNA) COLOGUARD (FIT-DNA) [facility] [...] (1 of 2 - Risk 2-dose series) [facility] Start: 1981 Pneumococcal vaccination Pneumococcal Vaccine (1 of 2 - PCV) [facility] Start: 1981 Urine microalbumin profile DTAP,TDAP,TD (1 - Tdap) [facility] Start: 1980 Anxiety Screening Anxiety Screening [facility] Start: 1980 Depression Screening Depression Screening [facility] Start: 1980 Diabetes mellitus screening Diabetes Screening [facility] Start: 1980 HEPATITIS C SCREENING HEPATITIS C SCREENING [facility] Start: 1980 Hepatitis C screening Hepatitis C Screening [facility] Start: 1980 HIV SCREENING [facility]ING [facility] [...] 64 Years) (1 of 2 - PCV) [facility] Start: 11-25-1963 MMR Vaccines (1 of 1 - Standard series) MMR Vaccines (1 of 1 - Standard series) [facility] Start: 1962 Annual wellness visit Welcome to Medicare Visit [facility] Start: 1962 HIV screening HIV Screening [facility] Start: 1962 Lipid panel Lipid Panel [facility] Start: 1962 Screening for malignant neoplasm of colon [facility] Start: 1962 Screening for osteoporosis Bone Density Scan [facility] Start: 1962 Yearly Adult Physical Yearly Adult Physical [facility] Ankle brachial pressure index [facility] Bacteria identified in Cerebral spinal fluid by Culture CSF CULT + STAIN Microbiology Routine NPH (normal pressure hydrocephalus) (HCC) Ordered: 09/13/2022 [facility] Work Phone: Comment on above: Ordered: 09/13/2022 Bacteria identified in Unspecified specimen by Aerobe culture [facility] Bacteria identified in Unspecified specimen by Anaerobe culture [facility] End: 04-12-2024 Basic metabolic 2000 panel - Serum or Plasma Basic metabolic panel Lab Routine Morning draw (Lab) for 3 Occurrences starting 04/10/2024 until 04/12/2024, 1 completed [facility] Work Phone: Comment on above: Morning draw (Lab) for 3 Occurrences sta rting 04/10/2024 until 04/12/2024, 1 completed End: 04-12-2024 CBC panel - Blood by Automated count CBC Lab Routine Morning draw (Lab) for 3 Occurrences starting 04/10/2024 until 04/12/2024, 1 completed [facility] Work Phone: Comment on above: Morning draw (Lab) for 3 Occurrences sta rting 04/10/2024 until 04/12/2024, 1 completed Cell count panel - C erebral spinal fluid CSF CELL COUNT Lab Routine NPH (normal pressure hydrocephalus) ([facility]) Ordered: 09/13/2022 [facility] Work Phone: Comment on above: Ordered: 09/13/2022 Cell count, cerebros roberto fluid [facility] Comprehensive metabo lic 1999 panel - Serum or Plasma [facility] Comprehensive metabo lic 1999 panel - Serum or Plasma [facility] End: 04-09-2024 Continuous Pulse oximetry, In Phase 1 Continuous Pulse oximetry, In Phase 1 Respiratory Care Routine Continuous until discontinued starting 04/09/2024 [facility] Service Area Work Phone: Comment on above: Continuous until discontinued starting 1 Enolase.neuron speci fic [Mass/volume] in Serum or Plasma by Immunoassay [facility] Fungus identified in Unspecified specimen by Culture [facility] Glucose [Mass/volume ] in Cerebral spinal fluid [facility] Glucose [Mass/volume ] in Serum or Plasma POCT Glucose Point of Care Testing - Docked Device Routine As needed (Lab) until discontinued starting 04/09/2024 [facility] Service Area Work Phone: Comment on above: As needed (Lab) until discontinued start ing 04/09/2024 End: 04-09-2024 Incentive spirometry Instruct Incentive spirometry Instruct Respiratory Care Routine Once for 1 Occurrences starting 04/09/2024 until 04/09/2024 [facility] Work Phone: Comment on above: Once for 1 Occurrences starting 04/09/20 until 04/09/2024 IR LP FOR DRAINAGE (PRESSURE) IR LP FOR DRAINAGE (PRESSURE) Radiology Routine NPH (normal pressure hydrocephalus) (HCC) Ordered: 09/13/2022 [facility] Work Phone: Comment on above: Ordered: 09/13/2022 Meningitis+Encephali tis pathogens DNA and RNA panel - Cerebral spinal fluid by JER with non-probe detection [facility] End: 10-20-2023 Mri brain brain stem w/o w/contrast material MRI BRAIN WO/W IVCON Radiology Routine 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HCC) 1 Occurrences starting 09/20/2022 until 10/20/2023 [facility] Work Phone: Comment on above: 1 Occurrences starting 09/20/2022 until 10/20/2023 Patient Education [facility] Work Phone: Patient referral [facility] Work Phone: Protein [Mass/volume ] in Cerebral spinal fluid [facility] End: 04-09-2024 Urethral Catheter Removal Urethral Catheter Removal Procedures Routine Once for 1 Occurrences starting 04/09/2024 until 04/09/2024 [facility] Work Phone: Comment on above: Once for 1 Occurrences starting 04/09/20 until 04/09/2024 Virus identified in Unspecified specimen by Culture [facility] End: 02-13-2024 XR Cervical spine 6 Views [facility] Service A her[facility] Work Phone: Comment on above: Once for 1 Occurrences starting 02/13/20 until 02/13/2024 XR Chest 2 Views XR chest 2 view s Imaging Routine Cervical radiculopathy Senile osteoporosis 02/13/2024 11:10 AM EDT [facility] Work Phone: XR Chest 2 Views [facility] [place] [facility] [place] [facility] [place] Immunizations Immunization Date Immunization Notes Care Provider Fa frank 01-21-2021 COVID-19 Vaccine Pfi zer - Documentation Purposes Only Griselda Hastings Other [facility] 12-30-2020 COVID-19 Vaccine Pfi zer - Documentation Purposes Only Griselda Hastings Other [facility] 01-24-2016 KENALOG - 10 mg Griselda Hastings Other [employer] Other 01-27-2015 Toradol per 15 mg Griseldakeith Mendezs Other [employer] Other 03-15-2014 tetanus toxoid, redu julienne diphtheria toxoid, and acellular pertussis vaccine, adsorbed Griselda Hastings Other [employer] Other Payers Date Payer Category Payer Self-pay [id number] 2024 Medicare [id number]. [id number] 2024 Medicare [id number] 2023 Managed Care (Private) [facility] [id number]. [id number] 2022 Private Health Insurance [id number] 2.16.840.1.128454.19 2021 Private Health Insurance [facility] [employer] GENERIC [id number] 2021-Present [phone] [address] [place] [address] PPO [id number]. [id number] 2019 Medicaid [employer] [id number] 2019-Present [phone] [address] [place] [address] Medicaid [id number]. [id number] 2019 Medicaid [id number]. 1.13.159.2. [id number] 2019 Private Health Insurance 1.2 .840.016512.1.13.159.2. [id number] 2019 Unknown [id number] 2019 Unknown 2019 Unknown [id number] 2.16.840.1.826898.19 1962 Unknown [id number] 2.16.840.1.982189.3.579.2. 693 1962 Unknown [id number] 2.16.840.1.547228.3.579.2. 182 1962 Unknown [id number] 2.16.840.1.359202.3.579.2. 182 1962 Unknown [id number] 2.16.840.1.556628.3.579.2. 124 1962 Unknown [id number] 2.16.840.1.614778.3.579.2. 1244 1962 Unknown [id number] 2.16.840.1.921279.3.579.2. 1245 1962 Unknown [id number] 2.16.840.1.538461.3.579.2. 1245 1962 Unknown [id number] 2.16.840.1.124800.3.579.2. 1244 1962 Unknown [id number] 2.16.840.1.042248.3.579.2. 1244 1962 Unknown [id number] 2.16.840.1.297111.3.579.2. 1244 1962 Unknown [id number] 2.16.840.1.788421.3.579.2. 1244 1962 Unknown [id number] 2.16.840.1.883930.3.579.2. 1244 1962 Unknown [id number] 2.16.840.1.919459.3.579.2. 1244 1962 Unknown [id number] 2.16.840.1.816752.3.579.2. 1244 1962 Unknown [id number] 2.16.840.1.325274.3.579.2. 1245 1962 Unknown [id number] 2.16.840.1.674059.3.579.2. 1245 1962 Unknown [id number] 2.16.840.1.544516.3.579.2. 1245 1962 Unknown [id number] 2.16.840.1.120600.3.579.2. 1243 1962 Unknown [id number] 2.16.840.1.978896.3.579.2. 1243 1962 Unknown [id number] 2.16.840.1.082607.3.579.2. 1243 1962 Unknown [id number] 2.16.840.1.084380.3.579.2. 1962 Unknown [id number] 2.16.840.1.776173.3.579.2. 1962 Unknown [id number] 2.16.840.1.972242.3.579.2. 196 1962 Unknown [id number] 2.16.840.1.068256.3.579.2. 196 1962 Unknown [id number] 2.16.840.1.311495.3.579.2. 1962 Unknown [id number] 2.16.840.1.402291.3.579.2. 1962 Unknown [id number] 2.16.840.1.824139.3.579.2. 1258 1962 Unknown [id number] 2.16.840.1.022704.3.579.2. 1258 1962 Unknown [id number] 2.16.840.1.218219.3.579.2. 1258 1962 Unknown [id number] 2.16840.1.400111.3.579.2. 1258 1962 Unknown [id number] 2.16840.1.150734.3.579.2. 1258 1962 Unknown [id number] 2.16.840.1.542249.3.579.2. 1258 1962 Unknown [id number] 2.16.840.1.151476.3.579.2. 1258 1962 Unknown [id number] 2.16840.1.206842.3.579.2. 1258 1962 Unknown [id number] 2.16.840.1.939475.3.579.2. 1258 1962 Unknown [id number] 2.16.840.1.386276.3.579.2. 1259 Private Health Insurance [id number] Unknown [id number] Unknown [id number] 2.16.840.1.062735.3.579.2. 531 Unknown [id number] 2.16.840.1.209846.3.579.2. 531 Unknown [id number] 2.16.840.1.969877.3.579.2. 531 Unknown [id number] 2.16.840.1.216931.3.579.2. 531 Unknown [id number] 2.16.840.1.114824.3.579.2. 531 Unknown [id number] 2.16.840.1.567074.3.579.2. 531 Unknown [id number] 2.16.840.1.630806.3.579.2. 531 Unknown [id number] 2.16.840.1.913599.3.579.2. 531 Unknown [id number] 2.16.840.1.697656.3.579.2. 531 Social History Date Type Detail Facility Start: 04-29-2018 End: 11-05-2024 Tobacco smoking status [facility] Smoker (finding) [facility] Start: 1960 Sex Assigned At Male F [facility] Start: 10-16-2019 Tobacco smoking status NCIS Ex-smoker [facility] Sex Assigned At Not on file C [facility] Start: 10-03-2021 End: 10-13-2024 Exposure to SARS-CoV-2 (event) Not sure [facility] Start: 07-03-2023 End: 09-24-2024 Sex Assigned At [facility] [place] Start: 03-10-2022 End: 03-20-2022 Exposure to SARS-CoV-2 (event) Unable to assess [facility] Work Phone: Start: 12-28-2022 End: 11-05-2024 Daily Smoker S [place] Start: 03-13-2023 Tobacco Comment 6-10 cigarettes/[address] [facility] Start: 09-20-2022 Gender identity Identifies as male gender (finding) [facility] Start: 09-20-2022 Sexual orientation Heterosexual (fin ding) [facility] Healthcare Tobacco smoking status NHIS Tobacco smoking consumption unknown [facility] Work Phone: Start: 10-05-2023 End: 01-03-2024 Alcoholic beverage intake Lifetime non-drinker (finding) [facility] Work Phone: Adult Depression Screening Assessment 2 [facility] How often to you hav e a drink containing alcohol? Never [facility] In the past 12 months, was there a time when you were not able to pay the mortgage or rent on time? No [facility] Work Phone: Start: 04-28-2024 End: 11-25-2024 Sex Male (finding) [facility] NEGATED: Highlighted rowStart: NINF History of tobacco use Passive smoker [facility] Work Phone: Medical Equipment Procedure Code Equipment Code Equipment Origin al Text Equipment Identifier Dates Angiogram, lower extremity, left Multiple peripheral artery stent, bare-metal ([id number] Start: 05-07-2023 Allograft, Triad Lordotic 6 X 11 X 14 - [id number] - [id number] Start: 04-09-2024 Allograft, Triad Lordotic 6 X 11 X 14 - [id number] - [id number] Start: 04-09-2024 Plate, Acp, 1.6v , 2 Level, 34mm - [id number] Start: 04-09-2024 Screw, Acp, Self Drill, 3.5 X 17mm, Variable - [id number] Start: 04-09-2024 3.5 X 19mm Screw [id number] Start: 04-09-2024 Comment on above: Description: per juan carlos l only jdr 04/10 Goals Date Patient Goal Desired Activity /State Personal health goal Functional Status Date Assessment Result Facility 10-13-2024 Patient Health Quest ionnaire 2 item (PHQ-2) [Reported] [facility] Work Phone: 10-13-2024 PHQ-9 quick depressi on assessment panel [Reported.PHQ] [facility] Work Phone: Clinical Notes 11-03-2008 to [...] in all four extremities, including at least agriculture technician, finger abductors, biceps, triceps, deltoid, toe flexors [...] hungover or groggy. documented in this encounter [facility] 02-19-2025 Evaluation note Authored February 19, 2025 5:18pm Sooner if needed, the ER if concerns,The above note written by Shilpi Lantigua LPN acting as human recorder, note dictated by Dr. Griselda Hastings [facility] Work Phone: 1(481) 786-637109-04-2025 Evaluation note* Author Shilpi Lantigua [facility] Authored February 19, 2025 5:18pm Sooner if needed, the ER if concerns,The above note written by Shilpi Lantigua LPN acting as human recorder, note dictated by Dr. Griselda Hastings Author Curtis Covarrubias [facility] Authored April 01, 2025 1 :58pm The above note written by YOBANI Pollock acting as human recorder, note dictated by Dr.Brett Hastings. [facility] Work Phone: 1([phone]) 815-908708-20-2025 History of Present illness Narrative* Oziel Cadena [...] to alleviate the pain. documented in this encounterMissouri Southern HealthcareVqzhulihfa85-02-6782 Evaluation note* Diagnosis Onset Date Resolution Status [...] prostate cancer acute February 19, 2025 10:28am [facility] Work Phone: 1(556) 732-388507-24-2025 History of Present illness Narrative* QUENTIN Vail [...] INFLAMED SEBORRHEIC KERATOSIS Left Wrist - Anterior Stearns and brown stuck on verrucous scaly papule [...] limited to risks of scarring, darker or globe mounter pigmentary changes, recurrence, incomplete removal and infection. [...] limited to risks of scarring, darker or globe mounter pigmentary changes, recurrence, incomplete removal and infection. [...] 1 year, skin check documented in this encounterMissouri Southern HealthcareYqawtauech67-02-3857 History of Present illness Narrative* Oziel Cadena [...] spinal cord stimulator, as suggested by his painter and paperhanger apprentice, and is scheduled to see his doctor [...] injection was administered today. documented in this encounterMissouri Southern HealthcareQzwhcdzbfx32-65-2252 Evaluation note* Author Shilpi Lantigua [facility] Authored November 19, 2024 2:36p m Sooner if needed, the ER if concerns,The above note written by Shilpi Lantigua LPN acting as human recorder, note dictated by Dr. Griselda Hastings [facility] Work Phone: 1(652) 176-475605-28-2025 History of Present illness Narrative* Oziel Cadena [...] ezetimibe (ZETIA) 10 mg, Oral, Daily HYDROcodone-acetaminophen ([place]) 5-325 MG tablet take 1 tablet orally [...] Ana Luisa's absent. Ankle clonus absent. Coordination Pdveex-lg-siyn, rapid alternating movements and ngkt-hb-rytf normal bilaterally without dysmetria. Gait Normal casual, [...] the injections if needed. documented in this encounterMissouri Southern HealthcareYxxwznxggp58-27-9704 NoteHNO ID: [id number] Author: RACQUEL COLE MD Service: ? Author Type: Physician Type: Progress Notes Filed: 11/07/2024 11:09 Note Text: NAME: Shantel Melendez CLINIC NO.: [id number] DATE OF SERVICE: November 07, 2024 (Curtis) Some elements in this clinic note that are critical to medical decision making have been carefully reviewed and included from a prior clinic note dated: November 02, 2023 (Curtis) Referring Provider: Griselda Hastings DO Additional Clinicians involved in Shantel Melendez's care: Dr Kimberly Nichole ENT, Dr. 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 10/05/2021 - MRI Brain: [facility] There is T2 and T2 flair hyperintense [...] microvascular ischemic change. Brainst (more content not included)...[facility]05-19-2025 History of Present illness Narrative* Curtis Da [...] PATIENT PRESENTS WITH AN IMPLANTABLE OR ATTACHED AIRPORT OPERATIONS DUTY MANAGER: No RADIOLOGY DEPARTMENT: CT; Exam(s) Completed: Chest and Neck PERIPHERAL IV DATA: Site assessment: Clean,Dry and Intact, Site disposition Discontinued SIGNED BY: RT Craig(R) November 03, 2024 8:32 AM documented in this encounterOhiohealth [facility]-2025 NoteHNO ID: [id number] Author: CURTIS DA SILVA RN Service: ? [...] Melendez DATE: November 03, 2024 TIME: 8:13 [facility]05-19-2025 NoteHNO ID: [id number] Author: SALLY DOYLE RT(R) Service: ? Author [...] PATIENT PRESENTS WITH AN IMPLANTABLE OR ATTACHED AIRPORT OPERATIONS DUTY MANAGER: No RADIOLOGY DEPARTMENT: CT; Exam(s) Completed: Chest and Neck PERIPHERAL IV DATA: Site assessment: Clean,Dry and Intact, Site disposition Discontinued SIGNED BY: RT Craig(R) November 03, 2024 8:32 [facility]05-19-2025 Telephone encounter Note* Telephone Encounter - [...] [facility]04-28[facility] History of Present illness Narrative* Doretha [...] assess the C7 screw. Doretha Harris MD Garbage Collector Supervisor of Neurosurgery [facility] [place] [facility] Neuro[facility] ICU Office: [phone] [1] Past Surgical History: Procedure Laterality Date [...] 60 capsule, Rfl: 0 documented in this [facility] Work Phone: 1(817) 419-359304-21-2025 Radiology [facility] Main [place] [address] [place] [address] CT Scan Report Signed Patient: Shantel Melendez MR#: [id number] : 1960 Acct:[id number] Age/Sex: 63 / M ADM Date: 5 Loc: ER Room: Type: [facility] ER Attending Dr: Copies to: Manisha [...] Dorothy Eubanks M.D.10/06/2024 4:08 PM Dictation Location: [place] [address] Transcribed By: MARISA 10/06/24 9402 Dictated By: Dorothy Eubanks MD 10/06/24 1556 Signed By: 10/06/24 1602 [facility] Work Phone: 1([phone]) 115-132404-21-2025 Radiology Diagnostic [facility] Main [place] [address] [place] [address] CT Scan Report Signed Patient: Shantel Melendez MR#: [id number] : 1960 Acct:[id number] Age/Sex: 63 / M ADM Date: 5 Loc: ER Room: Type: [facility] ER Attending Dr: Copies to: Manisha [...] Dorothy Eubanks M.D.10/06/2024 3:56 PM Dictation Location: [place] [address] Transcribed By: MARISA 10/06/24 1556 Dictated By: Dorothy Eubanks MD 10/06/24 1551 Signed By: 10/06/24 1556 [facility] Work Phone: 1([phone]) 239-547903-27-2025 Evaluation note* Diagnosis Onset Date Resolution Status Admit Date Current every day smoker acute September 11, 2024 8:53am PAD (peripheral artery disease) acut e September 11, 2024 8:53am Right leg claudication acute [facility] 2024 8:53am [facility] Work Phone: [phone]) 802-240803-27-2025 Evaluation note* Diagnosis Onset Date Resolution Status Admit Date Current every day smoker acute September 11, 2024 8:53am PAD (peripheral artery disease) acut e September 11, 2024 8:53am Right leg claudication acute [facility] 2024 8:53am Cardiac arrhythmia acute October 272024 9:37am Essential hypertension acute [place] 2024 9:37am Hyperlipidemia acute October 27, 2024 9:37am 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, 2024 9:37am PAD (peripheral artery disease) sophy mone October 27, 2024 9:37am [facility] Work Phone: 1([phone]) 667-960303-27-2025 Evaluation note* Diagnosis Onset Date Resolution Status Admit Date Current every day smoker acute September 11, 2024 8:53am PAD (peripheral artery disease) acut e September 11, 2024 8:53am Right leg claudication acute [facility] 2024 8:53am Abdominal pain acute September 1:02pm [...] 1:57pm Dysphagia acute November 17, 2024 1:57pm [facility] Work Phone: [phone]) 418-332403-27-2025 Evaluation note* Diagnosis Onset Date Resolution Status [...] infection) acute November 19, 2024 2 :26pm [facility] Work Phone: [phone]) 362-703103-27-2025 History of Present illness Narrative* Oziel Cadena [...] ezetimibe (ZETIA) 10 mg, Oral, Daily HYDROcodone-acetaminophen ([place]) 5-325 MG tablet take 1 tablet orally [...] Depression: Not at risk (06/30/2024) Received from [facility] PHQ-2 Patient Health Questionnaire-2 Score: 2 [...] Ana Luisa's absent. Ankle clonus absent. Coordination Nfpmjb-is-smts, rapid alternating movements and isqq-na-gmbs normal bilaterally without dysmetria. Gait Normal casual, [...] the injections if needed. documented in this encounterMissouri Southern HealthcareSymytunncp26-67-4014 History of Present illness Narrative* Oziel Cadena [...] ezetimibe (ZETIA) 10 mg, Oral, Daily HYDROcodone-acetaminophen ([place]) 5-325 MG tablet take 1 tablet orally [...] Depression: Not at risk (06/30/2024) Received from [facility] PHQ-2 Patient Health Questionnaire-2 Score: 2 [...] the injections if needed. documented in this encounterMissouri Southern HealthcareOozykdlmux41-01-8404 Evaluation note* Author Shilpi Lantigua [facility] Authored July 03, 2024 4 :44pm Sooner if needed, the ER if concerns,The above note written by Shilpi Lantigua LPN acting as human recorder, note dictated by Dr. Griselda Hastings [facility] Work Phone: [phone]) 742-649301-15-2025 History of Present illness Narrative* Oziel Cadena [...] ezetimibe (ZETIA) 10 mg, Oral, Daily HYDROcodone-acetaminophen ([place]) 5-325 MG tablet take 1 tablet orally [...] Depression: Not at risk (06/30/2024) Received from [facility] PHQ-2 Patient Health Questionnaire-2 Score: 2 [...] injections at that time. documented in this encounterMissouri Southern HealthcareDyamvbyvmo77-70-1887 History of Present illness Narrative* Doretha Harris [...] another set of XR. Doretha Harris MD Garbage Collector Supervisor of Neurosurgery [facility] [place] [facility] ICU Office: [phone] Scribe Attestation By signing my name below, I, Shira Francy, Scribe, attest that this documentation has been preparedunder the direction and in the presence of Doretha Harris MD. documented in this [facility] Work Phone: 1([phone]) 311-718412-04-2024 History of Present illness Narrative* Oziel Cadena [...] ezetimibe (ZETIA) 10 mg, Oral, Daily HYDROcodone-acetaminophen ([place]) 5-325 MG tablet take 1 tablet orally [...] Depression: Not at risk (04/09/2024) Received from [facility] PHQ-2 Patient Health Questionnaire-2 Score: 0 [...] his injections if needed. documented in this encounterMissouri Southern HealthcareKpodobvpmd51-63-7623 History of Present illness Narrative* Solomon Narayanan PA-C - 04/30/2024 1:00 PM EST Images from the original note were not included. [facility] [place] Department of Neurological Surgery Post Operative Patient [...] CAD (coronary artery disease) Peripheral vascular disease [place] Past Medical History: Diagnosis Date Anxiety Cataract s/p excision of left Cervical radiculopathy Chronic pain disorder Coronary artery disease Depression Dysphagia thin liquids Hypertension NPH (normal pressure hydrocephalus) ([facility]) PAD (peripheral artery disease) ([facility]) s/p stent (05/2023) on ASA 81mg Peripheral vascular disease ([facility]) Pontine lesion watchful waiting Pulmonary nodule Skin cancer of scalp s/p excsison Spinal stenosis severe cervical stenosis, left sided foraminal stenosis at C5-6 and C6-7 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 Sincerely, RICH Hernandez PA-C Associate Physician Water Resources Business Segment Leader, Neurosurgery Clinical Garbage Collector Supervisor [facility] [place] [address] documented in this [facility] Work Phone: [phone]) [phone] Evaluation note* Diagnosis Onset Date Resolution Status [...] prostate cancer acute July 03, 2024 9:23am [facility] Work Phone: [phone] Hospital course Narrative* Aaron Gallo PA-C - [...] HYDROcodone-acetaminophen 5-325 mg tablet; Commonly known as: [place] tiZANidine 4 mg capsule; Commonly known as: Zanaflex Outpatient Follow-Up Future Appointments Date Time Provider Department Center 04/30/2024 1:00 PM Solomon Narayanan PA-C [id number] [place] 05/02/2024 9:00 AM [facility] SCC PET MRI [facility] [facility] [place] 05/02/2024 10:00 AM Helder Jack MD [id number] [facility] 06/30/2024 9:00 AM Doretha Harris MD [id number] [place] Aaron Gallo PA-C documented in this [facility] Work Phone: [phone]) [phone] History of Present illness Narrative* Nikole Lezama, PharmD - 04/10/2024 12:11 PM EDT Pharmacy Medication History Review Shantel Melendez is a 63 y.o. male admitted for Cervical radiculopathy. Pharmacy reviewed the patient's diejp-xp-bnmgweqvs medications and allergies for accuracy. Medications ADDED: norco Medications CHANGED: Tizanidine nightly to as needed Medications REMOVED: Diamox Albuterol The list below reflects the updated HOME COMFORT ADVISOR list. Prior to Admission Medications Prescriptions Last Dose Informant HYDROcodone-acetaminophen ([place]) 5-325 mg tablet Self Sig: Take 1.5 [...] Report Patient interview (good historian-required some prompting) [facility] medical note 01/29 Additional Comments: none Nikole Lezama PharmD Transitions of Care Pharmacist 04/10/24 Secure Chat preferred If no response call [phone] or Vocera Med Rec * Tori Johnson, OT - 04/10/2024 11:57 AM EDT Occupational Therapy Evaluation Patient Name: Sahntel Melendez Today's Date: 04/10/2024 Room: [address] [place] [address] Time Calculation Start Time: 1019 Stop Time: [...] bars in shower Prior Function: Level of [place]: Independent with ADLs and functional transfers, Independent with homemaking with ambulation ADL Assistance: Independent Homemaking Assistance: Independent Ambulatory Assistance: Independent 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, 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 [...] LUE LUE: Within Functional Limits Outcome Measures: [facility] Daily Activity Putting on and taking off [...] 11:57 AM TORI JOHNSON OT Rehab Office: [phone] * Tia Caceres, PT - 04/10/2024 10:33 AM EDT Physical Therapy Physical Therapy Evaluation Patient Name: Shantel Melendez Department: [place] [address] Room: [address] [place] [address] Today's Date: 04/10/2024 Time Calculation Start Time: [...] Prior Function Per Pt/Caregiver Report Level of [place]: (independent ambulation in/outdoors no device, independent stairclimbing as needed, no falls) ADL Assistance: Independent Homemaking Assistance: Independent Ambulatory Assistance: Independent 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 documented in this [facility] Work Phone: [phone]) [phone] Plan of care note* Care Plan - [...] goals for the shift include pain management. [facility] Work Phone: [phone]) 116-133310-23-2024 Miscellaneous Notes* Care Plan - Elizabeth Esposito [...] (B) Operative Note Date: 04/09/2024 OR Location: [facility] OR Name: Shantel Melendez, : 1960, Age: 63 y.o., , Sex: male Diagnosis Pre-op Diagnosis * Cervical radiculopathy [M54.12] * Senile osteoporosis [M81.0] Post-op Diagnosis * Cervical radiculopathy [M54.12] * Senile osteoporosis [M81.0] Procedures Fusion Spine Anterior Cervical and Discectomy C5-6, C6-7 63230 - UT ARTHRD ANT INTERBODY DECOMPRESS CERVICAL BELW C2 UT ARTHRD ANT INTERBODY DECOMPRESS CERVICAL BELW C2 [79581] UT ARTHRD ANT INTERDY CERVCL BELW C2 EA ADDL NTRSPC [27562] UT ALLOGRAFT FOR SPINE SURGERY ONLY STRUCTURAL [78769] UT MICROSURG TQS REQ USE OPERATING MICROSCOPE [01918] Surgeons * Doretha Harris - Primary Resident/Fellow/Other Water Resources Business Segment Leader: Surgeons and Role: * Chicho Bryan MD [...] 85 mL Specimen: No specimens collected Staff: Duralumin Mechanic: Derrell Scrub Person: Beverly Scrub Person: Shaina Drains and/or Catheters: Closed/Suction Drain 1 Neck Bulb 10 Fr. (Active) Urethral Catheter Double-lumen;Non-latex 16 Fr. (Active) Tourniquet Times: Implants: Implants Type Name Action Serial No. Spinal Hardware SCREW, DISTRACTION, 14 MM - [id number] Used, Not Implanted Spinal Hardware ALLOGRAFT, TRIAD LORDOTIC 6 X 11 X 14 - [id number] - [id number] Implanted [id number] Spinal Hardware ALLOGRAFT, TRIAD LORDOTIC 6 X 11 X 14 - [id number] - [id number] Implanted [id number] Spinal Hardware PLATE, ACP, 1.6V, 2 LEVEL, 34MM - [id number] Implanted Spinal Hardware SCREW, ACP, SELF DRILL, 3.5 X 17MM, VARIABLE - [id number] Implanted 3.5 X 19MM SCREW Implanted Findings: [...] then placed our self-retaining retractor in and Bayard pins in and placed the disc space [...] 04/09/2024 4:50 PM EDT documented in this [facility] Work Phone: [phone]) 398-504010-23-2024 Nurse Note* Shantelle Pacheco RN - 04/09/2024 7:03 PM EDT Patient transferred from PACU to [facility] via stretcher in stable condition. Patient oriented to room, bed, and call light. Skin assessment witnessed by Brianda Dowling RN. Will continue to monitor. [facility]10-23-2024 Nurse Note* Shantelle Pacheco RN - 04/09/2024 7:03 PM EDT Patient transferred from PACU to [id number] via stretcher in stable condition. Patient oriented to room, bed, and call light. Skin assessment witnessed by Brianda Dowling RN. Will continue to monitor. documented in this [facility] Work Phone: [phone]) 428-693110-23-2024 Hospital Note* Hospital Course - Aaron Gallo PA-C - 04/09/2024 5:04 PM EDT 63M h/p HTN, CAD, PAD s/p stent on ASA81, pontine glioma, tongue cancer p/w LUE radiculopathy, 04/09 s/p C5-7 ACDF 04/10 PT/OT DC recs no needs, post operative xray shows good position, Drain removed [facility] Work Phone: 1([phone]) 319-967910-23-2024 Note* Op Note - Chicho Bryan MD - 04/09/2024 2:30 PM EDT Fusion Spine Anterior Cervical and Discectomy C5-6, C6-7 (B) Operative Note Date: 04/09/2024 OR Location: [facility] OR Name: Shantel Melendez, : 1960, Age: 63 y.o., , Sex: male Diagnosis Pre-op Diagnosis * Cervical radiculopathy [M54.12] * Senile osteoporosis [M81.0] Post-op Diagnosis * Cervical radiculopathy [M54.12] * Senile osteoporosis [M81.0] Procedures Fusion Spine Anterior Cervical and Discectomy C5-6, C6-7 55810 - UT ARTHRD ANT INTERBODY DECOMPRESS CERVICAL BELW C2 UT ARTHRD ANT INTERBODY DECOMPRESS CERVICAL BELW C2 [44516] UT ARTHRD ANT INTERDY CERVCL BELW C2 EA ADDL NTRSPC [67329] UT ALLOGRAFT FOR SPINE SURGERY ONLY STRUCTURAL [53842] UT MICROSURG TQS REQ USE OPERATING MICROSCOPE [12062] Surgeons * Doretha Harris - Primary Resident/Fellow/Other Water Resources Business Segment Leader: Surgeons and Role: * Chicho Bryan MD [...] 85 mL Specimen: No specimens collected Staff: Duralumin Mechanic: Derrell Scrub Person: Beverly Scrub Person: Shaina Drains and/or Catheters: Closed/Suction Drain 1 Neck Bulb 10 Fr. (Active) Urethral Catheter Double-lumen;Non-latex 16 Fr. (Active) Tourniquet Times: Implants: Implants Type Name Action Serial No. Spinal Hardware SCREW, DISTRACTION, 14 MM - [id number] Used, Not Implanted Spinal Hardware ALLOGRAFT, TRIAD LORDOTIC 6 X 11 X 14 - [id number] - [id number] Implanted [id number] Spinal Hardware ALLOGRAFT, TRIAD LORDOTIC 6 X 11 X 14 - [id number] - [id number] Implanted [id number] Spinal Hardware PLATE, ACP, 1.6V, 2 LEVEL, 34MM - [id number] Implanted Spinal Hardware SCREW, ACP, SELF DRILL, 3.5 X 17MM, VARIABLE - [id number] Implanted 3.5 X 19MM SCREW Implanted Findings: [...] then placed our self-retaining retractor in and Bayard pins in and placed the disc space [...] Harris MD at 04/09/2024 4:50 PM EDT [facility] Work Phone: 1([phone]) 248-595110-23-2024 Attending History and physical note* Rojas Edwards MD - 04/09/2024 12:22 PM EDT H&P reviewed. The patient was examined and there are no changes to the H&P. Cosigned by Doretha Harris MD at 04/09/2024 12:53 PM EDT Source Note - Rick Mckinney APRN-AUDIOVISUAL EQUIPMENT OPERATOR - 03/26/2024 10:30 AM EDT Images from [...] pressure hydrocephalus) (Multi) PAD (peripheral artery disease) [place] s/p stent (05/2023) on ASA 81mg Peripheral vascular disease ([facility]) Pontine lesion watchful waiting Pulmonary [...] Flowsheet Row Pre-Admission Testing from 02/11/2024 in [facility] Questionnaire Series Submission from 02/06/2024 in [facility] with Generic Provider Laura Can you take [...] or washing dishes? 2.7 filed at 02/11/2024 46595.7 filed at 02/06/2024 003 Can you do [...] Flowsheet Row Pre-Admission Testing from 02/11/2024 in [facility] DVT Score 11 filed at 02/11/2024 1506 BMI 30 or less filed at 02/11/2024 1506 RETIRED: Current Status Major surgery planned, lasting over 3 hours filed at 02/11/2024 1506 RETIRED: History Prior major surgery, Previous malignancy filed at 02/11/2024 1506 RETIRED: Age 60-75 years filed at 02/11/2024 1506 Modified Frailty Index Flowsheet Row Pre-Admission Testing from 02/11/2024 in [facility] Non-independent functional status (problems with dressing, bathing, personal grooming, or cooking) 0 filed at 02/11/2024 1505 History of diabetes mellitus 0 filed at 02/11/2024 1505 History of COPD 0 filed at 02/11/2024 1505 History of CHF No filed at 02/11/2024 1505 History of MT 0 filed at 02/11/2024 1505 History of [...] Flowsheet Row Pre-Admission Testing from 02/11/2024 in [facility] High-Risk Surgery (Intraperitoneal, Intrathoracic,Suprainguinal vascular) 0 filed at 02/11/2024 1505 History of ischemic heart disease (History of MT, History of positive exercuse test, Current chest [...] Flowsheet Row Pre-Admission Testing from 02/11/2024 in [facility] Smoking status 0 filed at [...] Flowsheet Row Pre-Admission Testing from 03/26/2024 in [facility] Pre-Admission Testing from 02/11/2024 in [facility] Do you snore loudly? 0 [...] Yellow, Dark-Yellow Appearance, Urine Clear Clear Specific [place], Urine 1.007 1.005 - 1.035 pH, Urine [...] Rate 63 BPM Atrial Rate 63 BPM UT Interval 268 ms QRS Duration 74 ms QT Interval 406 ms QTC Calculation(Bazett) 415 ms P Salem 58 degrees R Salem -3 degrees T Salem 18 degrees QRS Count 10 beats Q [...] given to patient. Neurosurgery: Doretha Harris MD [facility] 01/03/24 seen for cervical radiculopathy. Neurosurgery: Jose Cruz Khan MD [facility] 11/05/23- [facility] seen for cervical stenosis of spine. 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 HEENT/Airway The patient has history of selective right neck dissection (II-V) and bilateral base of tongue/linguial tonsillar excision on 01/30/[address] 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 Currently with limited neck extension. No documented or reported history of airway difficulty. HemOnc: Racquel Cole MD [facility] 11/02/23-[facility] seen for head and neck cancer. [...] Cardiology Evaluation Cardiology: Lilliam Cason MD - [facility] (see media tab for last office [...] instructions. After Visit Summary given. [facility] Work Phone: 1(398) 718-558110-23-2024 History and physical note* Rojas Edwards MD - 04/09/2024 12:22 PM EDT H&P reviewed. The patient was examined and there are no changes to the H&P. Cosigned by Doretha Harris MD at 04/09/2024 12:53 PM EDT Source Note - Rick BAILEY Mckinney-AUDIOVISUAL EQUIPMENT OPERATOR - 03/26/2024 10:30 AM EDT Images from [...] pressure hydrocephalus) (Multi) PAD (peripheral artery disease) ([facility]) s/p stent (05/2023) on ASA 81mg Peripheral vascular disease ([facility]) Pontine lesion watchful waiting Pulmonary nodule [...] Flowsheet Row Pre-Admission Testing from 02/11/2024 in [facility] Questionnaire Series Submission from 02/06/2024 in [facility] with Generic Provider Laura Can you take [...] or washing dishes? 2.7 filed at 02/11/2024 31494.7 filed at 02/06/2024 0032 Can you do [...] Flowsheet Row Pre-Admission Testing from 02/11/2024 in [facility] DVT Score 11 filed at 02/11/2024 1506 BMI 30 or less filed at 02/11/2024 1506 RETIRED: Current Status Major surgery planned, lasting over 3 hours filed at 02/11/2024 1506 RETIRED: History Prior major surgery, Previous malignancy filed at 02/11/2024 1506 RETIRED: Age 60-75 years filed at 02/11/2024 1506 Modified Frailty Index Flowsheet Row Pre-Admission Testing from 02/11/2024 in [facility] Non-independent functional status (problems with dressing, bathing, personal grooming, or cooking) 0 filed at 02/11/2024 1505 History of diabetes mellitus 0 filed at 02/11/2024 1505 History of COPD 0 filed at 02/11/2024 1505 History of CHF No filed at 02/11/2024 1505 History of MT 0 filed at 02/11/2024 1505 History of [...] Flowsheet Row Pre-Admission Testing from 02/11/2024 in [facility] High-Risk Surgery (Intraperitoneal, Intrathoracic,Suprainguinal vascular) 0 filed at 02/11/2024 1505 History of ischemic heart disease (History of MT, History of positive exercuse test, Current chest [...] Flowsheet Row Pre-Admission Testing from 02/11/2024 in [facility] Smoking status 0 filed at [...] Flowsheet Row Pre-Admission Testing from 03/26/2024 in [facility] Pre-Admission Testing from 02/11/2024 in [facility] Do you snore loudly? 0 [...] Yellow, Dark-Yellow Appearance, Urine Clear Clear Specific [place], Urine 1.007 1.005 - 1.035 pH, Urine [...] Rate 63 BPM Atrial Rate 63 BPM UT Interval 268 ms QRS Duration 74 ms QT Interval 406 ms QTC Calculation(Bazett) 415 ms P Salem 58 degrees R Salem -3 degrees T Salem 18 degrees QRS Count 10 beats Q [...] given to patient. Neurosurgery: Doretha Harris MD [facility] 01/03/24 seen for cervical radiculopathy. Neurosurgery: Jose Cruz Khan MD [facility] 11/05/23- [facility] seen for cervical stenosis of spine. 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 HEENT/Airway The patient has history of selective right neck dissection (II-V) and bilateral base of tongue/linguial tonsillar excision on 01/30/[address] 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 Currently with limited neck extension. No documented or reported history of airway difficulty. HemOnc: Racqeul Cole MD [facility] 11/02/23-[facility] seen for head and neck cancer. [...] Cardiology Evaluation Cardiology: Lilliam Cason MD - [facility] (see media tab for last office [...] After Visit Summary given. documented in this encounterAdams [facility] Hospital Work Phone: 1(396) 969-418910-15-2024 Evaluation note* Author Nida Humphreys [facility] Authored April 01, 2024 1 0:01am The above note written by Leon Humphreys LPN, acting as human recorder, note dictated by Dr. Griselda Hastings. [facility] Work Phone: 1(435) 364-576108-15-2024 Evaluation note* Author Nida Humphreys [facility] Authored January 31, 2024 10 :40am The above note written by Leon Humphreys LPN, acting as human recorder, note dictated by Dr. Griselda Hastings. Author Nidajennifer Humphreys [facility] Authored April 01, 2024 1 1:01am The above note written by Leon Humphreys LPN, acting as human recorder, note dictated by Dr. Griselda Hastings. [facility] Work Phone: 1(702) 595-887707-18-2024 History of Present illness Narrative* Doretha Harris [...] bone stimulator after surgery. Doretha Harris MD Garbage Collector Supervisor of Neurosurgery [facility] Spine [place] [facility] Neuroscience ICU Office: [phone] Scribe Attestation By signing my name below, I, Parisa Rick , Scribe attest that this documentation has been prepared under the direction and in the presence of MD Shirley. documented in this [facility] Work Phone: 1(116) 737-723906-27-2024 History of Present illness Narrative* Helder Jack MD - 12/13/2023 10:00 AM EDT Patient ID: Shantel Melendez is a 63 y.o. male. Referring Physician: Shimon Heaton PA-C [id number] [place] [address] Primary Care Provider: Griselda Hastings DO Subjective [...] hydrocephalus. He saw Dr. Lara at the [facility]. Also pain behind left eye. No [...] issues. 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 INTERVAL HISTORY (12/13/2023): Since the last visit, he continues to have severe neck pain, which isslowly getting worse, along with some muffled hearing on the left side. He tried going back to parttime work, but the activity made the neck pain much more severe. He saw a Neurosurgeon at [facility] about the cervical stenosis, but he was unwilling to consider surgery for the neck due to the pontine lesion. He has now been to see a Neurosurgery PA (Solomon Narayanan) at [facility] about the neck, who thought surgical decompression was reasonable. He will see the Neurosurgeon soon to discuss the possible surgery. He has had some Botox injections into the neck and associated muscles, and has some steroid injections due next week. He tried some test shots for an Ablation procedure, but they were too painful. The ROS is as per documentation in the [facility]. Objective BSA: There is no [...] Nate Benavidez 12/13/2023 9:38 AM Dictation workstation: [id number] Impression 1. Abnormal increased T2 signal in [...] will undergo a new MRI brain at [facility]. -I spent > 40 minutes in face to face consultation to review and discuss the above; 50% of whichor more was dedicated to counseling. Helder Jack MD documented in this encounterAdams County Hospital Work Phone: 1(778) 117-178806-27-2024 Instructions* Patient Instructions* Alondra Escamilla RN - 12/13/2023 10:00 AM EDT Your next appointment will be in 5 months. Please schedule your MRI prior to this visit. Please contact [phone] option 5 then option 2 with any questions or concerns. For any scheduling concerns please call [phone] option 1 documented in this encounterAdams County Hospital Work Phone: 1(999) 433-449606-26-2024 History of Present illness Narrative* Solomon Narayanan PA-C - 12/12/2023 1:00 PM EDT Images from the original note were not included. 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 Sincerely, RICH Hernandez PA-C Associate Physician Water Resources Business Segment Leader, Neurosurgery Clinical Garbage Collector Supervisor [facility] [place] [address] [place] [address] documented in this encounterAdams County Hospital Work Phone: 1(158) 903-336105-17-2024 Instructions* Patient Instructions* Racquel Cole MD - 11/02/2023 10:13 AM EDT Scans and labs in 1 year RTC 1 week after documented in this encounterOhiohealth [facility]05-17-2024 History of Present illness Narrative* Racquel Cole MD - 11/02/2023 9:45 AM EDT Images from the original note were not included. NAME: Shantel Melendez CLINIC NO.: [id number] DATE OF SERVICE: November 02, 2023 (Curtis) Some elements in this clinic note that are critical to medical decision making have been carefully reviewed and included from a prior clinic note dated: November 03, 2022 (Curtis). Referring Provider: Griselda Hastings DO Additional Clinicians involved in Shantel Melendez's care: Dr Kimberly Nichole ENT, Dr. Ibarra [place] surgery [facility] DIAGNOSIS: Head and neck cancer ASSESSMENT: [...] 1.8 mm of invasive disease (Stage I, [id number], HPV+ oropharyngeal SCC).resected T1 N1 base of [...] adenopathy is identified. 10/05/2021 - MRI Brain: [facility] There is T2 and T2 flair hyperintense [...] respiratory bronchiolitis. 01/30/2019 - Neck dissection at [facility] Base of tongue did note a squamous [...] 2020: Doing well, still smokes, works at [employer]. Reviewed scans and there is no evidence [...] which included preparing to see the patient, [id number] patient care, completing clinical documentation, performing a medically appropriate examination, counseling and educating the patient/family/caregiver, ordering medications, tests, or p rocedures, independently interpreting results (not separately reported), communicating results to the patient/family/caregiver, and care coordination (not separately reported). Racquel Cole MD, CPE Hematology and Oncology Services Provided at: [place], [place] Scribe Attestation: This note was scribed [...] under my direction. CC: Griselda Hastings, DO [address] [place] [phone] [address] Harris [facility] ENT[address] Dr. Nichole ENT Dr. Ibarra CT surgery [facility]. documented in this encounterOhiohealth Arthur [facility]05-13-2024 Evaluation note* Author Shilpi Lantigua [facility] Authored October 29, 2023 10:32 am Sooner if needed, the ER if concerns,The above note written by Shilpi Lantigua LPN acting as human recorder, note dictated by Dr. 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04-19-2024 History of Present illness Narrative* Helder Jack MD - 10/05/2023 9:30 AM EDT Patient ID: Shantel Melendez is a 62 y.o. male. Referring Physician: No referring provider defined for this encounter. Primary Care Provider: Griselda Hastings DO Subjective History of Present Ilness: 62 y.o. presents in neurosurgical consultation from [facility] for cervical stenosis.C/o neck pain and LUE pain, numbness and weakness down to hand for 2 years. SawNeurosurgeon at and has had 2 spinal taps with some improvement. Went to [facility] to be assessed for hydrocephal;us and was told he does not have hydrocephalus. He saw Dr. Lara at the [facility]. Also pain behind left eye. No [...] issues. 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 The ROS is as per documentation in the [facility]. Objective BSA: 1.93 meters squared [...] counseling. Helder Jack MD documented in this encounterAdams County Hospital Work Phone: 1(727) 109-266704-19-2024 Instructions* Patient Instructions* Adriana Thomas RN - 10/05/2023 9:[address] Jack will present your case at Tumor Board next Sunday. Someone from the office will call you that day or about your plan. Please call us with any questions or concerns at [phone] opt. 5, opt. 2 For scheduling concerns please call [phone] option 1 documented in this encounterAdams County Hospital Work Phone: 1(279) 795-322402-28-2024 Evaluation note* Author Curtis Covarrubias [facility] Authored August 15, 2023 5:19pm The above note written by Serafin Flood acting as human recorder, note dictated by Dr. Griselda Hastings . [facility] Work Phone: 1([phone]) 834-754502-28-2024 Evaluation note* Author Curtis Olmosolson [facility] Authored August 15, 2023 5:19pm The above note written by Serafin Flood acting as human recorder, note dictated by Dr. Griselda Hastings . Author Shilpi Lantigua [facility] Authored October 29, 2023 10:32 am Sooner if needed, the ER if concerns,The above note written by Shilpi Lantigua LPN acting as human recorder, note dictated by Dr. Griselda Hastings [facility] Work Phone: 1(365) 168-283701-15-2024 Evaluation note* Encounter Date Diagnosis Assessment Notes [...] continue to follow with them as scheduled. [employer] Other 12-14-2023 Evaluation note* Encounter Date Diagnosis Assessment Notes Treatment Notes Treatment Clinical Notes May, PAD (peripheral artery disease) (ICD-10 - I73.9) Patient recently had angioplasty for occlusion of right iliac artery that was discovered by high school hvac r instructor. He has been doing well since the [...] work before I provide him that consent. [employer] Other 12-13-2023 Evaluation note* Encounter Date Diagnosis [...] I will see him in 3 months. [employer] Other 11-28-2023 Evaluation note* Encounter Date Diagnosis [...] 3 months Apr, Lightheadedness (ICD-10 - R42) [employer] Other [id number] [facility] Evaluation note* Encounter Date Diagnosis Assessment [...] questions were addressed and consent was obtained. [employer] Other 11-14-2023 Evaluation note* Encounter Date Diagnosis [...] M54.2) The patient is now following with [facility]. He states he has an upcoming cervical epidural scheduled. 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 Apr, PAD (peripheral artery disease) (ICD-10 - I73.9) Arterial studies ordered by high school hvac r instructor indicating peripheral artery disease. The patient does report lower extremity pain and heaviness and I recommend it would be beneficial to consult with a vascular specialist. The patient is in agreement, therefore a referral was initiated. A CTA has been ordered by neurologist , appointment pending [facility] scheduling. Apr, Hyperlipidemia (ICD-10 - E78.5) Blood [...] vocies understanding. We will continue to monitor. [employer] Other 10-26-2023 Evaluation note* Encounter Date Diagnosis Assessment Notes Treatment Notes Treatment Clinical Notes Mar, Claudication (ICD-10 - I73.9) [employer] Other 10-25-2023 Evaluation note* Encounter Date Diagnosis [...] 4 weeks Mar, Lightheadedness (ICD-10 - R42) [employer] Other 10-24-2023 Evaluation note* Encounter Date Diagnosis Assessment Notes Treatment Notes Treatment Clinical Notes Mar, Elevated blood pressure reading (ICD-10 - R03.0) [employer] Other 09-28-2023 Evaluation note* Encounter Date Diagnosis [...] infection. Feb, Burning sensation (ICD-10 - R20.8) [employer] Other 09-21-2023 Evaluation note* Encounter Date Diagnosis [...] index finger. We will continue to monitor. [employer] Other 07-13-2023 Hospital Discharge instructions Diet Plan/Instructions [...] * Discharge Physician: : Lima Joseph MD ([id number]) - Anesthesiology, Pain Management * Discharge Physician Phone: : [phone] [facility] [address], [place] [address] Special Plan/Instructions for Discharge from 12/27/2022 10:26 [...] sent to the office to be completed. [employer] Other 05-12-2023 History of Present illness Narrative* [...] with PATIENT DISCHARGED TO: Ambulatory patient, left [place] department area. A Diagnostic radioactive procedure has taken place, with no further precautions necessary other than routine body substance precautions. More information regarding radiation safety can be found usingthis link: [email or web address] SIGNATURE: TABITHA Srinivasan) PATIENT NAME: Shantel [...] No Does patient want to see a Door Opener? No (yes to any of above refer [...] or pronator drift. Coordination: Romberg sign negative. Suthfp-Euap-Oirroy Test normal. Gait: Gait abnormal. Comments: Slightly [...] which included preparing to see the patient, yscv-kq-xhly patient care, completing clinical documentation, obtaining and/or [...] her mid twenties. He will see the ACCOUNTING ASSOCIATE at Dr. Cadena's office today, and will see the [facility] 09/13/22. I do feel pt needs his FMLA extended until 12/16/22. I encouraged him to continue to follow with these doctors, and we will continue to monitor. [employer] Other 02-14-2023 Evaluation note* Encounter Date Diagnosis [...] pain medication and fever reducers as needed. [employer] Other 01-11-2023 Evaluation note* Encounter Date Diagnosis Assessment Notes Treatment Notes Treatment Clinical Notes Jun, Other complicated headache syndrome (ICD-10 - G44.59) [employer] Other 12-09-2022 Evaluation note* Encounter Date Diagnosis [...] check on him again in 1 month. [employer] Other 10-30-2022 Hospital Discharge instructions Additional Instructions [...] week to see how you are doing. [facility] Work Phone: [phone]) 597-672010-10-2022 Miscellaneous Notes* Telephone Encounter - Racquel Cole MD - 03/27/2022 3:54 PM EDT Good with me * Telephone Encounter - Asya Reynolds RN - 03/27/2022 2:17 PM EDT Informed patient of your recommendations. He states that he is seeing neurology in [place] and they do not feel he needs [...] the weekend about an appointment with a [facility] neurosurgeon. 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 Patient expectations: Second opinion Tumor Specifics: Location: brain Previous Evaluations: MRI w/wo contrast (10/05/21): 10/05/2021 MRI Brain [facility] Impression: 1. There is T2 and T2 [...] (HCC) [C71.9 (ICD-10-CM)] Order Questions Question Answer [facility] Brain Tumor [facility] Epic access? [...] see if this gives him some relief [employer] Other 08-15-2022 Evaluation note* Encounter Date Diagnosis [...] did hold off on any pain medications. [employer] Other 07-11-2022 Evaluation note* Encounter Date Diagnosis [...] blood pressure was elevated upon check in. [employer] Other 06-20-2022 Evaluation note* Encounter Date Diagnosis [...] rule out other causes of his symptoms. [employer] Other 05-24-2022 Evaluation note* Encounter Date Diagnosis [...] will complete the necessary medical disability forms. [employer] Other 05-17-2022 Evaluation note* Encounter Date Diagnosis [...] this medication. Will continue to follow up [employer] Other 05-12-2022 History of Present illness Narrative* Racquel Cole MD - 10/27/2021 5:05 PM EDT Images from the original note were not included. NAME: Shantel Melendez CLINIC NO.: [id number] DATE OF SERVICE: October 27, 2021 Some elements in this clinic note that are critical to medical decision making have been carefully reviewed and included from a prior clinic note dated: October 13, 2021 Referring Provider: Griselda Hastings DO Additional Clinicians involved in Shantel Melendez's care: Dr Kimberly Nichole ENT, Dr. Ibarra [place] surgery [facility] AMBULATORY TELEPHONE VISIT Shantel Melendez has consented [...] 1.8 mm of invasive disease (Stage I, [id number], HPV+ oropharyngeal SCC).resected T1 N1 base of [...] 01/30/19 He had a neck dissection at [facility] HPI: Updated Visit, October 27, 2021: Telephone [...] COMP METABOLIC PANEL Racquel Cole MD, CPE [place], [place] CC: Griselda Hastings, DO [address] [address] [address] NEWMAN ENT[address] Dr[address] Nichole ENT Dr. Ibarra [place] surgery [facility]. documented in this encounterOhiohealth Arthur G.[facility]. [facility], [...] him on to see Dr. Jonny Vigil. [employer] Other 05-04-2022 Miscellaneous Notes* Telephone Encounter - Haily Jovel [facility] - 10/19/2021 12:56 PM EDT [facility] Neuro Office spoke with Leslee. She states they have received patient records/referral and have patient scheduled to see Dr Narayan on 10/24. Haily Issa * Telephone Encounter - Asya Gramajo [facility] - 10/18/2021 10:34 AM EDT Records faxed. * Telephone Encounter - Haily Jovel [facility] - 10/13/2021 12:24 PM EDT Noelle: Information ready for you. Haily Jovel Pss * Telephone Encounter - Antonia Mcguire - 10/13/2021 10:33 AM EDT Referral to neurosurgery - Dr. Narayan or [facility] Noelle/Layo: Can you please refer patient and follow up? Thanks! Antonia Mcguire documented in this encounterOhio[facility]22 History of Present illness Narrative* Racquel Cole MD - 10/13/2021 10:19 AM EDT Images from the original note were not included. NAME: Shantel Melendez NO.: [id number] DATE OF SERVICE: October 13, 2021 Some elements in this clinic note that are critical to medical decision making have been carefully reviewed and included from a prior clinic note dated:October 14, 2020 Referring Provider: Griselda aHstings, DO Additional Clinicians involved in Shantel Melendez's care: Dr Kimberly Nichole ENT, Dr. Ibarra [place] surgery [facility] CC: Head and neck cancer ASSESSMENT: [...] 1.8 mm of invasive disease (Stage I, [id number], HPV+ oropharyngeal SCC).resected T1 N1 base of [...] 01/30/19 He had a neck dissection at [facility] HPI: Updated Visit, October 13, 2021: 1 [...] 2020: Doing well, still smokes, works at [employer]. Reviewed scans and there is no evidence [...] adenopathy is identified. 4. 10/05/2021 MRI Brain [facility] Impression: 1. There is T2 and T2 [...] head and neck (HCC) Racquel Cole MD, [place], [place] CC: Griselda Hastings, DO [address] [address] [address] Kimber[address] NEWMAN ENT[address] Dr. Nichole ENT Dr. Ibarra [place] surgery [facility]. documented in this encounterOhiohealth [facility]04-21-2022 Miscellaneous Notes* Telephone Encounter - Racquel [...] to continue with monitoring diet and exercise. [employer] Other 03-28-2022 Evaluation note* Encounter Date Diagnosis Assessment Notes Treatment Notes Treatment Clinical Notes Aug, Anxiety and depression (ICD-10 - F41.8) [employer] Other 01-13-2022 Evaluation note* Encounter Date Diagnosis Assessment Notes Treatment Notes Treatment Clinical Notes Jun, Sinusitis (ICD-10 - J32.9) I did prescribe the above medications and work note provided. [employer] Other 01-12-2022 Evaluation note* Encounter Date Diagnosis Assessment Notes Treatment Notes Treatment Clinical Notes Jun, Sinus pressure (ICD-10 - J34.89) Patient advised of negative results. Encouraged him to call if symtpoms persist or worsen, he verbalized understanding. [employer] Other 11-02-2021 Evaluation note* Encounter Date Diagnosis Assessment Notes Treatment Notes Treatment Clinical Notes Apr, Sinus congestion (ICD-10 - R09.81) [employer] Other 10-28-2021 Evaluation note* Encounter Date Diagnosis [...] Encouraged patient to continue with their efforts. [employer] Other 12-01-2016 History general Narrative - Reported* [...] surgery 02/04 19 Hospitalization History see above [employer] Other 12-01-2016 History general Narrative - Reported* [...] [facility] Center 11/07/2021 Hospitalization History see above [employer] Other 12-01-2016 History general Narrative - Reported* [...] Cancer Center 11/07/2021 Hospitalization History see above [employer] Other 12-01-2016 History general Narrative - Reported* [...] Cancer Center 11/07/2021 Hospitalization History see above [employer] Other 12-01-2016 History general Narrative - Reported* [...] Cancer Center 08/2022 Hospitalization History see above [employer] Other 12-01-2016 History general Narrative - Reported* [...] Cancer Center 08/2022 Hospitalization History see above [employer] Other 12-01-2016 History general Narrative - Reported* [...] iliac artery 04/2023 Hospitalization History see above [employer] Other 05-19-2009 History of Present illness Narrative* [...] He saw Dr. Ba a neurologist in [facility]. * He describes his vision as seeing 1-2 . He describes this does not seem quite to but finding a time lab between moving his eyes and having the visual change. [facility]vjtdbf-[facility]tdqywbWal[facility] Work Phone: chimi complaint+Reason for visit Narrative* Chief Complaint 2 month 2 month f/u Reason for Visit Cervical spondylosis History of COVID-19 Nicotine dependence with current use SCC (squamous cell carcinoma) Nicotine dependence with current use Osteoarthritis cervical spine [facility] Work Phone: Clinical Notes [facility] Evaluation + Plan note [facility] Evaluation noteNo Assessments Information Available [facility] Diagnosis Glioma of brain (HCC)- Primary Malignant neoplasm of brain, unspecified site Lung nodules Other nonspecific abnormal finding of lung field 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 CenterEvaluation noteNo [employer] Other Evaluation noteNo assessment information available [facility] Work Phone: Evaluation note* Diagnosis Onset Date Resolution Status Migraine acute [facility] Work Phone: Evaluation note* Diagnosis NPH (normal pressure hydrocephalus) (HCC)- Primary Idiopathic normal pressure hydrocephalus (INPH) documented in this encounter [facility]* Diagnosis 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HCC)- Primary NPH (normal pressure hydrocephalus) (HCC) Idiopathic normal pressure hydrocephalus (INPH) documented in this encounter [facility] CenterEvalunemours foundation note* Diagnosis 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HCC) NPH (normal pressure hydrocephalus) (HCC) Idiopathic normal pressure hydrocephalus (INPH) documented in this encounter 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* Author Nida Humphreys [facility] Authored January 31, 2024 10 :40am The above note written by Leon Humphreys LPN, acting as human recorder, note dictated by Dr. Griselda Hastings. [facility] Work Phone: Evaluation note* Diagnosis 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 CenterEvaluation [facility]* Diagnosis Malignant neoplasm of head, [...] osteoporosis Senile osteoporosis documented in this encounter [facility] Work Phone: Evaluation note* Diagnosis Cervical radiculopathy- Primary Brachial neuritis or radiculitis nos Status post cervical spinal fusion Arthrodesis status Acute postoperative pain Other acute postoperative pain Muscle spasms of neck documented in this encounter [facility] Work Phone: Evaluation note* Diagnosis Other nerve root and plexus disorders- Primary Cervical paraspinal muscle spasm Spasm of muscle Cervical stenosis of spinal canal Spinal stenosis in cervical region [facility] Diagnosis Cervical radiculopathy- Primary Brachial neuritis or radiculitis nos Occipital neuralgia of left side Balance problem Abnormality of gait documented in this encounter [facility] Work Phone: [phone] note* 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 [facility] Work Phone: [phone] note* 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 [facility] Work Phone: [phone] note* Diagnosis Cervical radiculopathy- Primary Brachial neuritis or radiculitis nos Senile osteoporosis documented in this encounter [facility] Work Phone: [phone] note* Diagnosis Cervical radiculopathy Brachial neuritis or radiculitis nos Senile osteoporosis Cervical radiculopathy Brachial neuritis or radiculitis nos Senile osteoporosis Cervical radiculopathy Brachial neuritis or radiculitis nos Senile osteoporosis documented in this encounter [facility] Work Phone: [phone] note* Diagnosis Cervical radiculopathy Brachial neuritis or radiculitis nos Senile osteoporosis Cervical radiculopathy Brachial neuritis or radiculitis nos Cervical radiculopathy Brachial neuritis or radiculitis nos Senile osteoporosis documented in this encounter [facility] Work Phone: [phone] note* Diagnosis Cervical radiculopathy Brachial neuritis or radiculitis nos Senile osteoporosis Cervical radiculopathy Brachial neuritis or radiculitis nos Cervical radiculopathy Brachial neuritis or radiculitis nos Senile osteoporosis documented in this encounter [facility] Work Phone: [phone] note* Diagnosis Status post cervical spinal fusion- Primary Arthrodesis status documented in this encounter [facility] Work Phone: [phone] note* Diagnosis Nerve root and plexus disorder, unspecified- Primary [facility]* Diagnosis Nerve root and plexus disorder, unspecified- Primary [facility]* Diagnosis Nerve root and plexus disorder, unspecified- Primary documented in this encounter 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Evalun[facility] note* Diagnosis Nerve root and plexus disorder, unspecified- Primary Acute pain of left shoulder documented in this encounter [facility] HealthcareEvaluation note* Diagnosis Melanocytic nevus of trunk- Primary Benign neoplasm of skin of trunk, except scrotum Seborrheic keratosis Inflamed seborrheic keratosis Actinic keratosis Capillary angioma Nevus, non-neoplastic History of SCC (squamous cell carcinoma) of skin Personal history of other malignant neoplasm of skin documented in this encounter [facility] HealthcareEvaluation note* Diagnosis Nerve root and plexus disorder, unspecified- Primary Acute pain of left shoulder documented in this encounter [facility] HealthcareEvaluation note* Diagnosis Acute pain of right shoulder- Primary Nerve root and plexus disorder, unspecified Acute pain of left shoulder documented in this encounter [facility] HealthcareEvaluation note* Diagnosis Other nerve root and plexus disorders- Primary Acute pain of left shoulder Acute pain of right shoulder documented in this encounter [facility] HealthcareHospital Discharge instructions Additional Instructions Obtain Elsy pot and perform nasal irrigations twice a day[facility] Work Phone: Hospital Discharge instructions Additional Instructions Please return to emergency department for any new or worrisome symptoms including any chest pain, shortness of breath, vomiting, fever. Take all antibiotics even if you start feeling better.[facility] Work Phone: Hospital Discharge instructions Additional Instructions Push fluids Zofran for nausea vomiting Follow-up with the GI specialist as discussed for possible colonoscopy Return here if any problems persist or worsen If you are able to collect a urine specimen take it to the lab.[facility] Work Phone: Reason for referral [...] SCAN OF CHEST CONTRAST Racquel Cole MD [address] [place] [address] [place] [address] [place] [address] Referral ID Status Reason Start Date Expiration Date V isits Requested Visits Authorized [id number] Closed Auto-Generate d Referral 09/23/2021 11/22/2021 1 [...] CAT OF NECK TISSUE Racquel Cole MD [address] [place] [address] [place] [address] [place] [address] Referral ID Status Reason Start Date Expiration Date V isits Requested Visits Authorized [id number] Closed Auto-Generate d Referral 09/23/2021 11/22/2021 1 1 [facility] CenterReason for referral (narrative)No reason for referral information availableTrumbull [facility] Hospital Work Phone: Reason for visit Narrative* Auth/Cert Specialty Diagnoses / Procedures Referred By Roverto t Referred To Contact Diagnoses Cervical radiculopathy Senile osteoporosis Cervical radiculopathy [M54.12] Senile osteoporosis [M81.0] Procedures UT ARTHRD ANT INTERBODY DECOMPRESS CERVICAL BELW C2 UT ARTHRD ANT INTERBODY DECOMPRESS CERVICAL BELW C2 UT ARTHRD ANT INTERDY CERVCL BELW C2 EA ADDL NTRSPC UT ALLOGRAFT FOR SPINE SURGERY ONLY STRUCTURAL UT MICROSURG TQS REQ USE OPERATING MICROSCOPE Fusion Spine Anterior Cervical and Discectomy C5-6, C6-7 Droetha Harris MD [address] [facility], [address] [place] [address] Phone: tel: fax: [facility] Faiza MCCLE[place]AND [address] [place] [address] fax: Referral ID Status Reason Start Date Expiration Date Visits Re quested Visits Authorized [id number] 1 1 [facility] Work Phone: Reason for visit Narrative* Injection (Routine) - Closed Specialty Diagnoses / Procedures Referred By Contac t Referred To Contact Neurology Diagnoses Acute pain of left shoulder Procedures UT OFFICE/OUTPATIENT [facility] 60 MINUTES Oziel Cadena MD [address] [facility] [address], [place] [address] Phone: tel: fax: Oziel Cadena MD [address] [place] [address] Phone: tel: fax: Referral ID Status Reason Start Date Expiration Date V isits Requested Visits Authorized [id number] Closed Perform Procedure 11/12/2024 05/18/[address] 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 Living Will 10/05/2023 9:39 AM [...] 3:14 pm GERD (gastroesophageal reflux disease) J [facility] 2024 3:14pm Anxiety and depression February 19 10:28am Burning sensation February 19, 2025 10:28am Colon polyps February 19, 2025 10:28am Hyperlipidemia February 19, 2025 10:28am Medicare annual wellness visit, initial February 19, 2025 10:28am Nicotine dependence with current use Sep [facility]2024 10:28am PAD (peripheral artery disease) [facility] S/P cervical discectomy February [...] 3:14 pm GERD (gastroesophageal reflux disease) J [facility] 2024 3:14pm Anxiety and depression February 19 10:28am Burning sensation February 19, 2025 10:28am Colon polyps February 19, 2025 10:28am Hyperlipidemia February 19, 2025 10:28am Medicare annual wellness visit, initial February 19, 2025 10:28am Nicotine dependence with current use [facility]2024 10:28am PAD (peripheral artery disease) Septembe r [...] HIGH MDM 60-74 MINUTES Racquel Cole MD [address] [place] [address] [place] [address] Referral ID Status Reason Start Date Expiration Date Visits Requested Visits Authorized [id number] Authorized PCP Requested Referral 10/13/2021 10/13/2022 1 1 Specialty Diagnoses / Procedures Referred By Contac t Referred To Contact CT IMAGING Diagnoses Lung nodules Procedures CT CHEST W IVCON DIAGNOSTIC COMPUTED TOMOGRAPHY THORAX W/CONTRAST Racquel Cole MD [address] [place] [place] [address] Ct Imaging Referral ID Status Reason Start Date Expiration Date Visits Requested Visits Authorized [id number] Pending Review Auto-Generat ed Referral 10/30/2022 11/29/2022 1 1 Specialty Diagnoses / Procedures Referred By Contac t Referred To Contact CT IMAGING Diagnoses Malignant neoplasm of head, face and neck (HCC) Procedures CT NECK SOFT TISSUE W IVCON CT SOFT TISSUE NECK W/CONTRAST MATERIAL Racquel Cole MD [address] [place] 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) Referral Organization [facility] urosurgery Referring Provider First Name Sheng Referring Provider Last Name Wyatt Referring Provider Specialty Neurosurger y Referred Organization [facility] Referred Provider Jonny Vigil Referred Address [address] [place] [address] [place], [place],[address] Referred Provider Specialty Neurological Surgery Referral Priority Routine General Notes Fore, Linnea M 022 02:09:54 PM >Received and fax referral today Reason consult and treat (p t is willing to see him in [place], if not then will see at [facility]) 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) Diagnosis 2 Cervical pain (neck) (M54.2) Diagnosis 3 Pressure in head (R5 1.9) Referral Organization [facility] [place] Referring Provider First Name Griselda Referring Provider Last Name Darling Referring Provider Specialty Family Prac henny Referred Organization [facility] Referred Provider Oziel Cadena Referred Address [address] [facility],[place], [place],[address] Referral Priority Routine Specialty Diagnoses / Procedures Referred By Roverto moraes Referred To Contact MR IMAGING Diagnoses 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HCC) Procedures MRI BRAIN WO/W IVCON MRI BRAIN BRAIN STEM W/O W/CONTRAST MATERIAL Kelly Perez, BILLY [address] [place] [address] Mr Imaging Referral ID Status Reason Start Date Expiration Date Visits Requested Visits Authorized [id number] Authorized Auto-Generat ed Referral 09/20/2022 10/20/2023 1 1 Referral ID Status Reason Start Date Expiration Date V isits Requested Visits Authorized [id number] Closed Auto-Generate d Referral 09/20/2022 10/20/2023 1 1 Reason pt requesting n ot Dr. Verma, but can see other providers from that group evaluate and treat tinnitus and balance issues Diagnosis 1 Tinnitus of both ear s (H93.13) Diagnosis 2 Balance disorder (R2 6.89) Referral Organization [facility] Cardiology Referring Provider First Name Lilliam Referring Provider Last Name Kamla Referring Provider Specialty Cardiovascu lar Disease Referred Organization [facility] Referred Provider Manuela Ballesteros Referred Address ,[place], [place],[address] Referred Provider Specialty Ear, Nose an d Throat Referral Priority Routine General Notes GabbyMiguel hurleyya 12:40:36 PM >received today, pt has medicaid insurance, will send to Dr. Ballesteros, attachments made, waiting for notes to be locked Reason consult and treat Diagnosis 1 PAD (peripheral arnie ry disease) (I73.9) Referral Organization [facility] [place] Referring Provider First Name Griselda Referring Provider Last Name Darling Referring Provider Specialty [facility] Prac henny Referred Organization [facility] Vascular Surge ry Referred Provider Filipe Hess Referred Address [address] 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) Procedures CT CHEST W IVCON DIAGNOSTIC COMPUTED TOMOGRAPHY THORAX W/CONTRAST Racquel Cole MD [address] [place] [address] [place] [address] [place] [address] Referral ID Status Reason Start Date Expiration Date Visits Requested Visits Authorized [id number] Authorized Auto-Generat ed Referral 11/01/2024 12/01/2024 1 1 Specialty Diagnoses / Procedures Referred By Contac t Referred To Contact CT IMAGING Diagnoses 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) Procedures CT NECK SOFT TISSUE W IVCON CT SOFT TISSUE NECK W/CONTRAST MATERIAL Racquel Cole MD [address] [place] [address] [place] [address] [place] [address] Referral ID Status Reason Start Date Expiration Date Visits Requested Visits Authorized [id number] Authorized Auto-Generat ed Referral 11/01/2024 12/01/2024 1 1 Referral ID Status Reason Start Date Expiration Date V isits Requested Visits Authorized [id number] Closed Auto-Generate d Referral 10/26/2023 06/17/2024 1 1 Referral ID Status Reason Start Date Expiration Date V isits Requested Visits Authorized [id number] Closed Auto-Generate d Referral 10/26/2023 06/17/2024 1 1 Specialty Diagnoses / Procedures Referred By Contac t Referred To Contact CT IMAGING Diagnoses Lung nodules Procedures CT CHEST W IVCON DIAGNOSTIC COMPUTED TOMOGRAPHY THORAX W/CONTRAST Racquel Cole MD [address] [place] [address] [place] [address] [place] [address] Referral ID Status Reason Start Date Expiration Date V isits Requested Visits Authorized [id number] Closed Auto-Generate d Referral 10/30/2022 11/29/2022 1 1 Specialty Diagnoses / Procedures Referred By Contac t Referred To Contact CT IMAGING Diagnoses Malignant neoplasm of head, face and neck (HCC) Procedures CT NECK SOFT TISSUE W IVCON CT SOFT TISSUE NECK W/CONTRAST MATERIAL Racquel Cole MD [address] [place] [address] [place] [address] [address] Imaging [place] [address] Referral ID Status Reason Start Date Expiration Date V isits Requested Visits Authorized [id number] Closed Auto-Generate d Referral 10/30/2022 11/29/2022 1 1 Specialty Diagnoses / Procedures Referred By Contac t Referred To Contact Radiology 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 [place] [address] [place] [id number] Referral ID Status Reason Start Date Expiration Date Visits Requested Visits Authorized [id number] Pending Review Perform Procedure 12/13/2023 12/12/2024 1 1 Specialty Diagnoses / Procedures Referred By Contac t Referred To Contact Radiology 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 tumor perfusion protocol w and wo IV contrast Shimon Heaton PA-C [address] [place] [id number] Referral ID Status Reason Start Date Expiration Date Visits Requested Visits Authorized [id number] Authorized Perform Procedure 10/24/2023 10/23/2024 1 1 Specialty Diagnoses / Procedures Referred By Contac t Referred To Contact Radiology Diagnoses Cervical radiculopathy Procedures XR cervical spine complete 6+ views Doretha Harris MD [address] [facility], [address] [address] Referral ID Status Reason Start Date Expiration Date Visits Requested Visits Authorized [id number] Authorized Perform Procedure 01/03/2024 01/02/2025 1 1 Specialty Diagnoses / Procedures Referred By Contac t Referred To Contact Radiology Diagnoses Senile osteoporosis Procedures XR DEXA bone density axial skeleton w VFA Doretha Harris MD [address] [facility], [address] [address] Referral ID Status Reason Start Date Expiration Date Visits Requested Visits Authorized [id number] Pending Review Perform Procedure 01/03/2024 01/02/2025 1 1 Specialty Diagnoses / Procedures Referred By Contac t Referred To Contact Diagnoses Cervical radiculopathy Senile osteoporosis Procedures ECG 12 lead Doretha Harris MD [address] [facility], [address] [place] [address] Referral ID Status Reason Start Date Expiration Date V isits Requested Visits Authorized [id number] Authorized 01/09/2024 01/08/2025 1 1 Specialty Diagnoses / Procedures Referred By Contac t Referred To Contact Radiology Diagnoses Cervical radiculopathy Procedures XR DEXA bone density Doretha Harris MD [address] [facility], [address] [place] [address] Referral ID Status Reason Start Date Expiration Date Visits Requested Visits Authorized [id number] Authorized Perform Procedure 01/08/2024 01/07/2025 1 1 [...] content) DATE CREATED AUTHOR 08/01/2019 [facility] DATE CREATED AUTHOR AUTHOR'S ORGANIZ ATION 11/05/2021 [facility] DATE CREATED AUTHOR AUTHOR'S ORGANIZ ATION 01/19/2022 [facility] dical Specialist DATE CREATED AUTHOR AUTHOR'S ORGANIZ ATION 10/02/2022 [facility] DATE CREATED AUTHOR AUTHOR'S ORGANIZ ATION 12/25/2022 [facility] DATE CREATED AUTHOR AUTHOR'S ORGANIZ ATION 08/03/2023 [facility] DATE CREATED AUTHOR AUTHOR'S ORGANIZ ATION 02/13/2024 [facility] DATE CREATED AUTHOR AUTHOR'S ORGANIZ ATION 10/27/2024 [facility] DATE CREATED AUTHOR AUTHOR'S ORGANIZ ATION 11/13/2024 [facility] DATE CREATED AUTHOR AUTHOR'S ORGANIZ ATION 01/01/2025 [facility] DATE CREATED AUTHOR AUTHOR'S ORGANIZ ATION 01/03/2025 [facility] DATE CREATED AUTHOR AUTHOR'S ORGANIZ ATION 02/14/2025 [facility] DATE CREATED AUTHOR AUTHOR'S ORGANIZ ATION 03/21/2025 [facility] DATE CREATED AUTHOR AUTHOR'S ORGANIZ ATION 03/23/2025 [facility] dical Specialists [facility] DATE CREATED AUTHOR AUTHOR'S ORGANIZ ATION 03/26/2025 [facility] Source Comments (unrecognize d section and [...] Procedures EST PATIENT Racquel Cole MD [address] [place] [place] [address] Racquel Cole MD [address] [place] [address] [place] [address] Referral ID Status Reason Start Date Expiration Date Visits Re quested Visits Authorized [id number] Closed 10/13/2021 06/17/2022 1 1 Reason Comments Referral Information Neurosurgery Reason Comments Established Patient Specialty Diagnoses / Procedures Referred By Contac t Referred To Contact Hematology/Oncology / HEMATOLOGY/ONCOLOGY Diagnoses 2 week phone follow up [phone] Procedures PHYS/QHP TELEPHONE EVALUATION 5-10 MIN PROVIDER SPECIALTY PHONE CALL Racquel Cole MD [address] [place] [address] [place] [address] Racquel Cole MD [address] [place] [address] [place] [address] Referral ID Status Reason Start Date Expiration Date Visits Re quested Visits Authorized [id number] Closed 10/27/2021 06/17/2022 1 1 Reason Comments Triage Internal Referral--o ld Reason Comments Appointment Reason Comments New Patient Specialty Diagnoses / Procedures Referred By Contac t Referred To Contact Neurology / BRAIN TUMOR Diagnoses Hydrocephalus (HCC) Hydrocephalus Procedures OFFICE/OUTPATIENT NEW MODERATE MDM 45-59 MINUTES NEW SURGICAL Oziel Cadena MD [address] [address] Kelly Perez PA-C [address] [place] [address] Referral ID Status Reason Start Date Expiration Date Visits Re quested Visits Authorized [id number] Closed 09/13/2022 06/17/2023 1 1 Reason Comments Patient Question Reason Comments Radiology MRI Specialty Diagnoses / Procedures Referred By Contac t Referred To Contact MR IMAGING Diagnoses 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HCC) Procedures MRI BRAIN WO/W IVCON MRI BRAIN BRAIN STEM W/O W/CONTRAST MATERIAL Kelly Perez PA-C [address] [facility] [place] [address] Mr Imaging Referral ID Status Reason Start Date Expiration Date V isits Requested Visits Authorized [id number] Closed Auto-Generate d Referral 09/20/2022 10/20/2023 1 [...] TISSUE NECK W/CONTRAST MATERIAL Racquel Cole MD [address] [place] [address] [place] [address] [place] [address] Referral ID Status Reason Start Date Expiration Date V isits Requested Visits Authorized [id number] Closed Auto-Generate d Referral 10/26/2023 06/17/2024 1 1 Specialty Diagnoses / Procedures Referred By Contac t Referred To Contact CT IMAGING Diagnoses Lung nodules Procedures CT CHEST W IVCON DIAGNOSTIC COMPUTED TOMOGRAPHY THORAX W/CONTRAST Racquel Cole MD [address] [place] 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) Localized swelling, mass or lump of neck Procedures CT NECK SOFT TISSUE W IVCON CONTRAST CAT OF NECK TISSUE Racquel Coel MD [address] [place] [address] [place] [address] [place] [address] Referral ID Status Reason Start Date Expiration Date V isits Requested Visits Authorized [id number] Closed Auto-Generate d Referral 09/23/2021 11/22/2021 1 1 Reason Comments Neck Pain Tingling Numbness Specialty Diagnoses / Procedures Referred By Contac t Referred To Contact Radiology 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 tumor perfusion protocol w and wo IV contrast Shimon Heaton, [place] [address] [place] [address] Referral ID Status Reason Start Date Expiration Date Visits Requested Visits Authorized [id number] Authorized Perform Procedure 10/24/2023 10/23/2024 1 1 Reason Comments Neck Pain Specialty Diagnoses / Procedures Referred By Contac t Referred To Contact Diagnoses Cervical radiculopathy Senile osteoporosis Procedures ECG 12 lead Doretha Harris MD [address] [facility], [address] [address] Referral ID Status Reason Start Date Expiration Date V isits Requested Visits Authorized [id number] Authorized 01/09/2024 01/08/2025 1 1 Specialty Diagnoses / Procedures Referred By Contac t Referred To Contact Radiology Diagnoses Cervical radiculopathy Procedures XR cervical spine complete 6+ views Doretha Harris MD [address] [facility], [address] [address] Referral ID Status Reason Start Date Expiration Date Visits Requested Visits Authorized [id number] Authorized Perform Procedure 01/03/2024 01/02/2025 1 1 Specialty Diagnoses / Procedures Referred By Contac t Referred To Contact Radiology Diagnoses Cervical radiculopathy Procedures XR DEXA bone density Doretha Harris MD [address] [facility], [address] [facility] [place] [address] Referral ID Status Reason Start Date Expiration Date Visits Requested Visits Authorized [id number] Authorized Perform Procedure 01/08/2024 01/07/2025 1 1 [...] COMPUTED TOMOGRAPHY THORAX W/CONTRAST Racquel Cole MD [address] [place] [address] [place] [address] Phone: tel: fax: [place] [phone] Referral ID Status Reason Start Date Expiration Date V isits Requested Visits Authorized [id number] Closed Auto-Generate d Referral 11/01/2024 12/01/2024 1 1 Reason Comments Skin Check Care Teams (unrecognized sec tion and content) 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 Relationship Specialty Start Date End Date Griselda Hastings [address] [place], [place] [phone] PCP - General Family Practice 11/20/18 Griselda Hastings [address] [place] [phone] Referring Family Practice 11/20/18 Dog Handler Relationship Specialty Start Date End Date Griselda Hastings [address] [place] [phone] PCP - General Family Practice 11/20/18 Griselda Hastings [address] [place] [phone] Referring Family Practice 11/20/18 Dog Handler Relationship Specialty Start Date End Date Griselda Hastings [address] [place], [place] [phone] PCP - General Family Practice 11/20/18 Griselda Hastings [address] [place] [address], [place] [address] Referring Family Practice 11/20/18 Dog Handler Relationship Specialty Start Date End Date Griselda Hastings [address] [place] [address], [place] [address] PCP - General Family Practice 11/20/18 Griselda Hastings [address] [place] [address], [place] [address] Referring Family Practice 11/20/18 Dog Handler Relationship Specialty Start Date End Date Griselda Hastings [address] [place] [address], [phone] PCP - General Family Medicine 11/20/18 Griselda Hastings [address] [place] [address], [place] [address] Referring Family Medicine 11/20/18 Dog Handler Relationship Specialty Start Date End Date Griselda Hastings [address] [place] [address], [place] [address] PCP - General Family Medicine 11/20/18 Griselda Hastings [address] [place] [address], [place] [address] Referring Family Medicine 11/20/18 Team Status: Inactive [...] Primary Care Provider Active Nikole Mota APRN ACCOUNTING ASSOCIATE-C Attending Provider A ctive Team Status: Inactive Member Role Status Dates Griselda Hastings , Primary Care Provider Active Oziel Cadena MD Attending Provider Active Team Status: Inactive Member Role Status Dates Griselda Hastings , Primary Care Provider Active Nikole Mota APRN ACCOUNTING ASSOCIATE-C Attending Provider A ctive Dog Handler Relationship Specialty Start Date End Date Griselda Hastings [address] [place] [address], [place] [address] PCP - General Family Medicine 11/20/[address] [place] [address] Referring Family Medicine 11/20/18 Oziel Cadena MD [address] ROTH[address] [place] [address] Referring Neurology 08/18/22 Dog Handler Relationship Specialty Start Date End Date Griselda Hastings [address] [place] [address], [place] [address] PCP - General Family Medicine 11/20/18 Griselda Hastings [address] [place] [address], [place] [address] Referring Family Medicine 11/20/18 Oziel Cadena MD [address] [place] [address] Referring Neurology 08/18/22 Dog Handler Relationship Specialty Start Date End Date Griselda Hastings [address] [place] [address], [place] [address] PCP - General Family Medicine 11/20/18 Griselda Hastings [address] [place] [address] Referring Family Medicine 11/20/18 Oziel Cadena MD [address] [facility] [address] [address] Referring Neurology 08/18/22 Team Status: Inactive Member [...] Active Ruddy Harvey MD Attending Provider Active Dog Handler Relationship Specialty Start Date End Date Griselda Hastings DO [address] [place] [address] PCP - General Family Medicine 02/13/23 Dog Handler Relationship Specialty Start Date End Date Griselda Hastings DO [address] [place] [address] PCP - General Family Medicine 02/13/23 Team Status: Inactive Member Role Status Dates Griselda Hastings DO Primary Care Provider Active Sta rt: May 04, 2023 End: May 04, 2023 Nikole Mota APRN ACCOUNTING ASSOCIATE-C Attending Provider Active Start: April End: May [...] September 05, 2023 End: September 05, 2023 Dog Handler Relationship Specialty Start Date End Date Griselda Hastings DO PCP - General 01/03/19 Dog Handler Relationship Specialty Start Date End Date Griselda Hastings DO [facility] [address] [place] [address] PCP - General 01/03/19 [place] [address] [place] [address] Consulting Physician Hematology and Oncology 10/05/23 Team [...] Active Sta rt: October 26, 2023 Racquel Cloe MD Attending Provider Active Start: October 26, 2023 Team Status: Inactive Member Role Status Dates Griselda Hastings DO Primary Care Provide r, Attending Provider Active Start: October 29, 2023 End: October 29, 2023 Dog Handler Relationship Specialty Start Date End Date Griselda Hastings [address] [place] [address] PCP - General Family Medicine 11/20/18 Griselda Hastings [address] [place] [phone] Referring Family Medicine 11/20/18 Oziel Cadena MD [address] [facility] [address] [address] Referring Neurology 08/18/22 Team Status: Active Member Role Status Dates Lilliam Cason MD Hvac/R Service Technician Active Griselda Hastings DO Primary Care Provider Active Team Status: Inactive Member Role Status Dates Griselda Kuns , DO Primary Care Provide r, Attending Provider Active Start: December 03, 2023 End: December 03, 2023 Team Status: Inactive Member Role Status Dates Griselda Hastings DO Primary Care Provide r, Attending Provider Active Start: January 31, 2024 End: January 31, 2024 Dog Handler Relationship Specialty Start Date End Date Griselda Hastings [address] [place] [phone] PCP - General Family Medicine 11/20/18 Griselda Hastings [address] [place] [phone] Referring Family Medicine 11/20/18 Oziel Cadena MD [address] [place] [phone] Referring Neurology 08/18/22 Dog Handler Relationship Specialty Start Date End Date Griselda Hastings [address] [place] [phone] PCP - General Family Medicine 11/20/18 Griselda Hastings [address] [place] [phone] Referring Family Medicine 11/20/18 Oziel Cadena MD [address] [place] [address] Referring Neurology 08/18/22 Dog Handler Relationship Specialty Start Date End Date Griselda Hastings [address] [place] [phone] PCP - General Family Medicine 11/20/18 Griselda Hastings [address] [place] [address] Referring Family Medicine 11/20/18 Dog Handler Relationship Specialty Start Date End Date Griselda Hastings DO [address] [place] [address] PCP - General 01/03/19 [place] [address] [place] [address] Consulting Physician Hematology and Oncology 10/05/23 Solomon Narayanan PA-C [address] [facility], [address] [address] Physician [employer] Business Segment Leader Neurosurgery 12/12/23 Team Status: Inactive Member Role Status Dates Griselda Hastings DO Primary Care Provide r, Attending Provider Active Start: April 01, 2024 End: April 01, 2024 Dog Handler Relationship Specialty Start Date End Date Griselda Hastings DO [address] [place] [address] PCP - General 01/03/19 [place] [address] [place] [address] Consulting Physician Hematology and Oncology 10/05/23 Solomon Narayanan PA-C [address] [facility], [address] [address] Physician [employer] Business Segment Leader Neurosurgery 12/12/23 Dog Handler Relationship Specialty Start Date End Date Griselda Hastings DO [address] [place] [address] PCP - General 01/03/19 [place] [address] [place] [address] Consulting Physician Hematology and Oncology 10/05/23 Solomon Narayanan PA-C [address] [place] [address] Physician [employer] Business Segment Leader Neurosurgery 12/12/23 Team Status: Inactive Member Role Status Dates Griselda Hastings DO Primary Care Provider Active Sta rt: April 28, 2024 End: April 28, 2024 Lilliam Cason MD Attending Provider Active Sta rt: April 28, 2024 End: April 28, 2024 Dog Handler Relationship Specialty Start Date End Date Griselda Hastings DO [address] [place] [phone] PCP - General Family Medicine 02/13/23 Dog Handler Relationship Specialty Start Date End Date Griselda Hastings DO [address] [place] [address] PCP - General Family Medicine 02/13/23 Dog Handler Relationship Specialty Start Date End Date Griselda Hastings DO [address] [place], [place] [phone] PCP - General 01/03/19 [place] [address] [place] [address] Consulting Physician Hematology and Oncology 10/05/23 Solomon Narayanan PA-C [address] [facility], [facility] [address] [place], [place] [phone] Physician [employer] Business Segment Leader Neurosurgery 12/12/23 Dog Handler Relationship Specialty Start Date End Date Griselda Hastings DO [address] [place] [address] PCP - General 01/03/19 [place] [address] [place] [address] Consulting Physician Hematology and Oncology 10/05/23 Solomon Narayanan PA-C [address] [facility], [address] [address] Physician [employer] Business Segment Leader Neurosurgery 12/12/23 Dog Handler Relationship Specialty Start Date End Date Griselda Hastings DO [address] [place] [address] PCP - General 01/03/19 [place] [address] [place] [address] Consulting Physician Hematology and Oncology 10/05/23 Solomon Narayanan PA-C [address] [facility], [address] [address] Physician [employer] Business Segment Leader Neurosurgery 12/12/23 Dog Handler Relationship Specialty Start Date End Date Griselda Hastings DO [address] [place] [address] PCP - General 01/03/19 [place] [address] [place] [address] Consulting Physician Hematology and Oncology 10/05/23 Solomon Narayanan PA-C [address] [facility], [address] [address] Physician [employer] Business Segment Leader Neurosurgery 12/12/23 Dog Handler Relationship Specialty Start Date End Date Griselda Hastings DO [address] [place] [address] PCP - General 01/03/19 [place] [address] [place] [address] Consulting Physician Hematology and Oncology 10/05/23 Solomon Narayanan PA-C [address] [facility], [address] [address] Physician [employer] Business Segment Leader Neurosurgery 12/12/23 Dog Handler Relationship Specialty Start Date End Date Griselda Hastings DO [address] [place] [address] PCP - General 01/03/19 [place] [address] [place] [address] Consulting Physician Hematology and Oncology 10/05/23 Solomon Narayanan PA-C [address] [facility], [address] [address] Physician [employer] Business Segment Leader Neurosurgery 12/12/23 Team Status: Inactive Member Role Status Dates Griselda Hastings DO Primary Care Provider Active Sta rt: June 24, 2024 End: June 24, 2024 Solomon Narayanan PA-C Attending Provider Active St art: June 24, 2024 End: Rocío 7th, 2025 Dog Handler Relationship Specialty Start Date End Date Griselda Hastings DO [address] [place] [address] PCP - General 01/03/19 [place] [address] [place] [address] Consulting Physician Hematology and Oncology 10/05/23 Solomon Narayanan, PA-C [address] [place] [address] Physician [employer] Business Segment Leader Neurosurgery 12/12/23 Dog Handler Relationship Specialty Start Date End Date Griselda Hastings DO [address] [place] [facility] [place] [address] PCP - General Family Medicine 02/13/23 Team Status: Inactive Member Role Status Dates Griselda Hastings DO Primary Care Provide r, Attending Provider Active Start: July 03, 2024 End: July 03, 2024 Dog Handler Relationship Specialty Start Date End Date Griselda Hastings DO [address] [place] [facility] [place] [address] PCP - General Family Medicine 02/13/23 Dog Handler Relationship Specialty Start Date End Date Griselda Hastings DO [address] [place] [facility] [place] [address] PCP - General Family Medicine 02/13/23 [...] September 11, 2024 End: September 11, 2024 Dog Handler Relationship Specialty Start Date End Date Griselda Hastings DO [address] [place] [phone] PCP - General Family Medicine 02/13/23 Team [...] September 20, 2024 End: September 20, 2024 Dog Handler Relationship Specialty Start Date End Date Griselda [...] 07, 2024 End: October 07, 2024 Manisha Ngeron APRN Attending Provider Active Start: October 07, [...] October 10, 2024 End: October 10, 2024 Dog Handler Relationship Specialty Start Date End Date Griselda Hastings DO [address] [place] [address] PCP - General 01/03/19 [place] [address] [place] [address] Consulting Physician Hematology and Oncology 10/05/23 Solomon Narayanan PA-C [address] [place] [address] Physician [employer] Business Segment Leader Neurosurgery 12/12/23 Dog Handler Relationship Specialty Start Date End Date Griselda Hastings DO [address] [place] [address] PCP - General 01/03/19 [place] [address] [place] [address] Consulting Physician Hematology and Oncology 10/05/23 Solomon Narayanan PA-C [address] [place] [address] Physician [employer] Business Segment Leader Neurosurgery 12/12/23 Team Status: Inactive Member Role Status Dates Griselda Hastings DO Primary Care Provider Active Sta rt: October 27, 2024 End: October 27, 2024 Lilliam Cason MD Attending Provider Active Sta rt: October 27, 2024 End: October 27, 2024 Dog Handler Relationship Specialty Start Date End Date Griselda Hastings [address] [place] [phone] PCP - General Family Medicine 11/20/18 Griselda Hastings [address] [place], [place] [phone] Referring Family Medicine 11/20/18 Oziel Cadena MD [address] [facility] [address] [place] [address] Referring Neurology 08/18/22 Dog Handler Relationship Specialty Start Date End Date Griselda Hastings [address] [place], [place] [phone] PCP - General Family Medicine 11/20/18 Griselda Hastings [address] [place], [place] [phone] Referring Family Medicine 11/20/18 Oziel Cadena MD [address] [facility] [address] [place] [address] Referring Neurology 08/18/22 Dog Handler Relationship Specialty Start Date End Date Griselda [...] November 19, 2024 End: November 19, 2024 Dog Handler Relationship Specialty Start Date End Date Griselda Hastings DO PCP - [facility] Medicine 02/13/23 Team Status: Inactive Member Role Status Dates Griselda Hastings DO Primary Care Provide r, Attending Provider Active Start: 2024 End: 2024 Dog Handler Relationship Specialty Start Date End Date Griselda Hastings DO PCP - [facility] Medicine 02/13/23 Team Status: Active Member [...] January 12, 2025 End: January 12, 2025 Dog Handler Relationship Specialty Start Date End Date Griselda Hastings DO PCP - [facility] 02/13/23 Dog Handler Relationship Specialty Start Date End Date Griselda Hastings DO PCP - [facility] 02/13/23 Team Status: Active Member Role [...] February 19, 2025 End: February 19, 2025 Dog Handler Relationship Specialty Start Date End Date Griselda Hastings DO PCP - [facility] 02/13/23 Team Status: Inactive Member Role Status Dates Griselda Hastings DO Primary Care Provider Active Sta rt: February 26, 2025 End: February 26, 2025 Griselda Hastings DO Attending Provider Active Start: February 26, 2025 End: February 26, 2025 Dog Handler Relationship Specialty Start Date End Date Griselda Hastings DO PCP - [facility] 02/13/23 Team Status: Inactive Member Role [...] BE BASED ON THE PRIMARY CLINICAL RECORDS. [facility]. provides no warranty or guarantee of the accuracy or completeness of information in this document.
== END 2025-04-03 13:35 | disposition home or self-care (01) ==
LOC: LAB 13:34
PROVIDERS: PCP Family Medicine; Visit Provider Psychiatry & Neurology Neurology
DX: Z01.818 Encounter for other preprocedural examination (principal); D49.6 Neoplasm of unspecified behavior of brain
CPT/HCPCS: 70553; A9575

== ENCOUNTER 2025-04-09 10:55 | Outpatient (OUT) | payer MEDICARE, OTHER, SELFPAY ==
--- OUTSIDE RECORDS SUMMARY | 2025-04-01 10:38 | XMS_ITS | Continuity of Care Document ---
Author Organization [facility] Address [address] [place] [address] Phone Care Team Providers Care Supervisor Glycerin Name Role Phone Jax Hastings DO Primary Care Provider [phone] René Montez APRN Attending Provider [phone] Sarina Ramsey MD Attending Provider Sofia Arias DO Attending Provider Jax Hastings DO Attending Provider Care Teams Patient Care Team Team Status: Active Member Role Status Dates Lilliam Cason MD Switch Cleaner Active Saira Stewart Care ProviderActive Visit Care Team Team Status: Inactive Member Role Status Dates Jax Hastings DO Primary Care Provider Active Sta rt: January 12, 2025 End: January 12, 2025Aby Gregory ProviderActiveStart: January 12, 2025 End: January 12, 2025 Visit Care Team Team Status: Active Member Role Status Poornima Hastings DO Primary Care Provider Active Sta rt: January 27, 2025 Rafa Mcdonough ProviderActiveStart: January 27, 2025 Visit Care Team Team Status: Active Member Role Status Poornima Hastings DO Primary Care Provider Active Sta rt: February 18, 2025 Sofia Arias DOAtteleni ProviderActiveStart: February 18, 2025 Visit Care Team Team Status: Inactive Member Role Status Dates Jax Hastings DO Primary Care Provider Active Sta rt: February 19, 2025 End: February 19natalya Hastings DOAttending ProviderActiveStart: February 19, 2025 End: February 19, 2025 Visit Care Team Team Status: Inactive Member Role Status Dates Jax Hastings DO Primary Care Provider Active Sta rt: February 26, 2025 End: February 26natalya Hastings DOAttending ProviderActiveStart: February 26, 2025 End: February 26, 2025 Patient Care Team Team Status: Inactive Member Role Status Dates Jax Hastings DO Primary Care Provider Active Sta rt: April 01, 2025 End: April 01Risa Bright ProviderActiveStart: April 01, 2025 End: April 01, 2025 Chief Complaint and Reason for Visit Chief Complaint Admit Date follow up Dyspepsia/GERD January 12, 2025 3:14pm medicare wellness February 19, 2025 10:28am I73.9 February 26, 2025 1:18pm 1 month f/u April 01, 2025 1 :42pm Reason for Visit Admit Date Colon polyps [...] 10:28am Nicotine dependence with current use Sep 2024 10:28am PAD (peripheral artery disease) Septembe r 2024 10:28am S/P cervical discectomy February 19, 2 025 10:28am Screening for prostate cancer February 19, 2025 10:28am Burning sensation April 01, 2025 1 :42pm Hypertension April 01, 2025 1 :42pm Allergies, Adverse Reactions, Alerts Allergen Type Severity Reaction Last Updated Verified Status cephalexin Allergy Unknown Hives, rash April 01, 2025 1:53pm Yes Active varenicline Allergy Unknown nightmares April 01, 2025 1:53pm Yes Active Social History Smoking Status Status Start Date End Date Date of Observa tion Smokes tobacco daily (finding) November 05, 2024 7:06am Observation Status Observation Response Date of Response Legal Sex [facility] (finding) [facility] 1960 Family History Relationship Condition Age at Onset Recorded Date/T yolie brother Hypertension Unknown sisterHeart diseaseUnknownfatherMalignant neoplasmUnknownCerebrovascular accident (CVA)UnknownmotherHeart diseaseUnknownDeceasedUnknown Problems Active Problems Medical Problem Onset Date Status Comments Change in bowel habits Unknown Active Arthralgia of cervical spineUnknownActiveNicotine dependence with current use UnknownActiveMedicare annual wellness visit, initialUnknownActiveHistory of COVID-19UnknownActiveInsomniaUnknownActiveScreening for prostate cancerUnknown ActiveSpinal cord stimulator statusUnknownActiveCurrent every day smokerUnknown ActiveBurning sensationUnknownActiveDizzinessUnknownActiveOsteoarthritis cervical spineUnknownActiveCardiac arrhythmiaUnknownActiveArthritisUnknownActive AV bloc first degreeUnknownActiveDysphagiaUnknownActiveDiarrheaUnknownActive DyspepsiaUnknownActiveMigraineUnknownActiveHyperlipidemiaUnknownActiveEarly satietyUnknownActiveCervical spondylosisUnknownActiveDyshidrotic eczemaUnknown ActiveClaudication of both lower extremitiesUnknownActiveParesthesia of left lower extremityUnknownActiveRight leg claudicationUnknownActiveEssential hypertensionUnknownActiveRSV (respiratory syncytial virus infection)Unknown ActiveBrain massUnknownActiveOsteoarthritis of handUnknownActiveAnxiety and depressionUnknownActiveS/P cervical discectomyUnknownActivePAD (peripheral artery disease)UnknownActiveSCC (squamous cell carcinoma)UnknownActivehead/neck Balance disorderUnknownActiveGERD (gastroesophageal reflux disease)UnknownActive Unexplained weight lossUnknownActiveAbdominal painUnknownActiveCancerJune ctiveHypertensionSeptember ctiveColon polypsUnknownActive Inactive/Resolved Problems Medical Problem Onset Date Status Comments History of oral cancer Unknown Resolved Acute sinusitisUnknownResolvedCervical radiculopathyUnknownResolvedAcute effusion of left earUnknownResolvedProductive coughUnknownResolvedAcute left- sided thoracic back painUnknownResolvedAbdominal painUnknownResolvedPneumonia UnknownResolvedDehydrationUnknownResolved Medications Medication Status Dose Units Route Directions Qty Days St art Date Stop Date End Date Instructions Adherence Pravastatin 40 mg tablet Discontinued 0 .ROUTE.FCDJONH37Vce2023 10:42amMarch 2024 4:02pmtake 1 tablet by mouth once dailyEzetimibe 10 mg tabletDiscontinued0.ROUTE.NYYBDFJ78Pnp2023 10:42amNovember 2023 10:44amtake 1 tablet by mouth once daily Amlodipine 10 mg tabletDiscontinued0.ROUTE.FRRMIYK61Xekg 2023 12:15pm February 01, 2024 11:05amtake 1 tablet orally dailyLisinopril 10 mg tablet Thngjbeineqx43DSTOKemqk0715Mhil 2023 1:20pmOctober 2023 11:02am Clopidogrel (Plavix) 75 mg wxuievEanclkildrkc00LNARFykin45Iphpgc 2023 2:32pmJuly 2024 3:23pmAmlodipine 10 mg oxyjxxHpxzmzlzwatk75FJNJRhfoy7813 February 01, 2024 11:05amOctober 2023 11:02amEzetimibe (Zetia) 10 mg tevhxfQfehzfqvbzmb22QDGJXwcwp70Zczsr 2024 4:02pmApril 2024 2:06pm Pravastatin 40 mg tabletDiscontinued0.ROUTE.CLGVEPS27Oahbm2024 4:02pm October 06, 2024 2:06pmtake 1 tablet by mouth once dailyCitalopram (Celexa) 10 mg pvgouaGgftcumbbguq94STJZNcira67Bkvsg 2024 3:10pmSeptember 2024 12:00pmAmlodipine 10 mg lieisaRrqmmyntycrl49BCDOCyuea8170Hhhfd 2024 3:11pm April 01, 2025 2:07pmLisinopril 10 mg xnypqbTggtzwcslusf06AOKTLlbdc4662Faswh 2024 3:11pmOctober 2024 2:27pmAlirocumab (Praluent Pen) 75 mg/mL pen iudqzykzIsgdsw35EZYXSXGOJ33T004Itk 2024 12:00amComplies with drug therapy Meclizine 25 mg tvlouuTrmoyvlihajp25AVCCXyzaz times daily as needed for fipgsqepr62Uwiuaxcp 2017 1:00amOctober 2021 4:26pmPromethazine 25 mg kwwznrRcokbaftcllt25AROOX2S as needed for motion ztmxhnvn41Rragoaef 12th, 2018 1:00amOctober 2021 4:26pmAmoxicillin-Pot Clavulanate 875-125 mg tablet Tijmioinpizs8YQXAMHdeqo gxavv43Otgxritks 2022 12:00amNovember 2022 9:23amCyclobenzaprine 10 mg hdtykaCyqsfystafvs89PCNGZwcjk times daily as needed for Muscle Gqcgl78Vbmagyn 2022 12:00amNovember 2022 9:22amPrednisone 10 mg kbsascCjotmeuooise34BZGMJmufs21Fqawjua 2022 12:00amNovember 2022 9:24amadminister with food or milkAcetaminophen-Codeine 300-30 mg tablet Esdzekmlocbl4BNZBBNxocr daily as needed for PainNovember 2022 1:00am August 02, 2023 1:44pmAmlodipine (Norvasc) 5 mg EingayKjegdcmyyqyv1MWLQJptfx May 07, 2023 1:00amFebruary 2023 1:45pmClotrimazole-Betamethasone 1-0.05 % frmkjDgsnktvnjget3RLYHZGDAYXGXVSdquj dailyNov2022 1:00am August 02, 2023 1:47pmGabapentin 300 mg yxvqwjgOiorthqensje409HTROQyraj times dailyNov2022 1:00amFebruary 2023 1:47pmOlmesartan 20 mg tabletDiscontinuedMGNov2022 1:00amFebruary 2023 1:50pm Clopidogrel 75 mg IxcwpvDholxzhmrgmg83SABYHdrat50657Yvhidnhi 20th, 2023 1:00am August 02, 2023 1:46pmAlbuterol Sulfate 90 mcg/actuation HFA aerosol inhaler Grsxgvejgllv7TEIQIJDBIUVUKQlkok 4 hours as needed for shortness of breathApril 2024 12:00amApril 2024 2:05pmAmoxicillin-Pot Clavulanate 875-125 mg ngejgwOtscmdzkmixv0LYFZBJfase dpsdh3Iuteq 2024 12:00amApril 2024 2:05pmAzithromycin 250 mg mluqbcFiwhbwtyghew684KFSXAjsek72Vgype 2024 12:00amApril 2024 2:06pmstart on day 2 of therapyCitalopram 40 mg tablet Ibywmcnigayc19POONGaumpRppi 2017 12:00amNove2017 3:12pmNaproxen 500 mg nxigwyBvqmppqmtgzb074MDTAXayoc ngamg78Nfbo 2017 12:00amNoveer 2017 3:12pmadminister with food or milkHydrocodone-Acetaminophen ([place]aton) 5-325 mg dsgjneOujqdkrymbtm0WIPSHA2W22Vvfu 2017 3:12pm Promethazine 25 mg TfzbumIofdenpixkct66ZMPIF7V as needed for Wophry28Okxcv 2021 12:00amOctober 2021 4:26pmCitalopram 20 mg blajszYjtqoxyatqdj82BJPZ DailyOct2021 12:00amFebruary 2023 1:46pmRimegepant (Nurtec Odt) 75 mg tablet,npxnjhkjfebyelJtisshyqzflz76LMYGQ13CFaamtod 2021 12:00am July 17, 2022 9:02amTizanidine 4 mg gfoabjHpgvjlkwrvgd1TLSVKygnktgBukksnu 2021 12:00amFebruary 2023 1:50pmPrednisone 20 mg tabletDiscontinued 29UIZRYmhgm65Dblroto 20th, 2022 12:00amJanuary 2022 9:01amadminister with food or milkOxycodone-Acetaminophen (Percocet) 5-325 mg tabletDiscontinued1 - 2 TABPOEvery 6 hours as needed for hiqx625Tubivtk 2021January 2022 9:01amIbuprofen 600 mg yacdodPqjrmhlsqdru788AGZVX5S as needed for arpl85Ibvvvgk 2021 12:00amJanuary 2022 9:01amTizanidine 4 mg capsuleDiscontinued4 MGPOTwice daily as needed for muscle ycxbtatnus84Fbrrgxp 2021 12:00am July 17, 2022 9:02amIndomethacin 25 mg JhwzjzmScurrsguqpay54JWGPYppir July 17, 2022 1:00amFebruary 2023 1:48pmMontelukast (Singulair) 10 mg FvlhfuJfeelxxocaga58TTFMWjryfXwfmkue 2022 1:00amFebruary 2023 1:49pm Hydroxyzine Hcl 25 mg BevmlsDhyxcsmcrevq74GUUFYonaxqy as needed for Insomnia July 17, 2022 1:00amFebruary 2023 1:48pmMirtazapine 7.5 mg Tablet Discontinued7.5MGPOBedtime as needed for InsomniaJuly 17, 2022 1:00am August 02, 2023 1:49pmAspirin 81 mg NtwqttnAhisdqfiuvlo72QHBCAhbflPxokxcb 2022 1:00amFebruary 2023 1:45pmHydrocodone-Acetaminophen 7.5-325 mg zpfqjlVkyjyq2RHCODZhcse daily as needed for painApril 2024 12:00amComplies with drug therapyOndansetron 4 mg tablet,ufxwusslvbfghqXdybaprguexg6MGRKOtaaq 8 hours as needed for nausea and vfpvtpaz73Esrbd 2024 12:00amMay 2024 11:48amPantoprazole 40 mg tablet,delayed release (DR/EC)Zlzhkqvapksq97MQIUOyzmk at wwbycwg2414Jqv 2024 12:00amJune 2024 2:16pmIndomethacin 75 mg capsule, extended kghinedIxbjggcpqbsc90DDQZXbedoLxqvfhxk 2023 1:00am August 02, 2023 1:48pmFreeTextSi capsule with food Orally Once a day; Note: Source Status: Not-TakingundefinedPRNprn;Provider: Darling Camara ( )Albuterol Sulfate 90 mcg/actuation HFA aerosol inhalerDiscontinued1 PUFFINHALATIONEvery 4 hoursFebruary 2023 1:00amFebruary 2023 1:45pm FreeTextSi puff as needed Inhalation every 4 hrs; Note: Source Status: Start; Refills: 1; Provider: Darling Camara RMethylprednisolone 4 mg tablets,dose packDiscontinuedMGPOAs DirectedFeuary 2023 1:00amFebruary 2023 1:48pmFreeTextSig: as directed Orally as directed; Note: Source Status: Start1 pack; Refills: 0; Provider: Darling Camara RGabapentin 100 mg xhgowbpAeachaqptgud155 MGPODailybruary 2023 1:00amFebruary 2023 1:47pmFreeTextSi capsule Orally Once a day; Note: Source Status: Not-TakingundefinedPRN; Provider: Darling Camara ( )Mirtazapine 15 mg tabletDiscontinuedMGPO August 02, 2023 1:00amMal[facility] 2023 1:37pmFreeTextSi/2 tablet at bedtime Orally Once a day; Note: Source Status: Taking; Provider: Darling Camara ( )Montelukast (Singulair) 10 mg ddewpzCahdbgwkeukc19VPNBEdumg August 02, 2023 1:00amFebruary 2023 2:10pmFreeTextSi tablet Orally Once a day; Note: Source Status: Taking; Provider: Darling Camara ( ) Clopidogrel (Plavix) 75 mg nutwheEvbgbwucasow17QFWNLoqhrCibjvrbj 2023 1:00amAugust 2023 2:33pmFreeTextSi tablet Orally Once a day; Note: Source Status: Taking; Provider: Darling Camara ( )Tizanidine (Zanaflex) 4 mg smkrhfPhfkgkhfhlgw6OWKCZtfbg at bedtimeFebruary 2023 1:00amJune 2023 10:58amFreeTextSi tablet as needed Orally at bedtime; Note: Source Status: Taking; Provider: NichJosericiaIbuprofen 800 mg tablet Ditohhjoyitn692RYOPEdsuz times dailyFebruary 2023 1:00amMarch 2023 1:37pmFreeTextSi tablet with food or milk as needed Orally Three times a day; Note: Source Status: TakingPRN; Provider: Darling Camara ( ) Aspirin 81 mg tablet,delayed release (DR/EC)Temrmh03ZVLVEiojhFanbbdbb 2023 1:00amComplies with drug therapyMultivitamin (Multiple Vitamins) tabletActive1 TABPODailyFebruary 2023 1:00amComplies with drug therapyBrexpiprazole 1 mg tkvkwxGoxsueknkxxg5RYIRTkoilSxuekfzl 2023 1:00amFebruary 2023 2:10pm FreeTextSi tablet Orally Once a day; Note: Source Status: Continuesamples provided; Provider: Darling Camara RRosuvastatin 5 mg twcclyZnxmdmanekuu5JTFX August 02, 2023 1:00amFebruary 2023 2:10pmFreeTextSi tablet Orally 2 days per week; Note: Source Status: Not-TakingundefinedPRN; Refills:1; Provider: Darling Camara REzetimibe 10 mg tabletDiscontinuedMGPOFebruary 2023 1:00amFebruary 2023 1:47pmFreeTextSi tablet Orally 2 days per week; Note: Source Status: Not-TakingundefinedPRN; Provider: Kamla Lilliam WAmlodipine 5 mg ypjehtZbtbogwyscai3NQADMmrltKesycons 2023 1:00amMarch 2023 2:21pmFreeTextSi tablet Orally Once a day; Note: Source Status: Continue; Provider: Darling STEINERlotrimazole-Betamethasone 1-0.05 % creamDiscontinued1 APPLICTOPICALTwice dailyFebruary 2023 1:00amFebruary 2023 1:47pm FreeTextSi application Externally Twice a day; Note: Source Status: Not- TakingundefinedPRN; Refills: 1; Qty: 45 grams; Provider: Darling Camara RHydroxyzine Hcl 25 mg tabletDiscontinuedMGPOFebruary 2023 1:00amMarch 2023 1:37pmFreeTextSi-2 tablets Orally HS as needed; Note: Source Status: Taking; Provider: Darling STEINERitalopram 20 mg cewfgqKgnjeafcefhj99FNZBIyjcbYuttzfcf 2023 1:00amJune 2023 10:48amFreeTextSi tablet Orally Once a day; Note: Source Status: Continue; Provider: Darling Camara RBrexpiprazole 1 mg tablet Discontinued0.5MGPODailyFebruary 2023 2:09pmMay 2023 8:55am Hydroxyzine Hcl 25 mg wjlekqLefmfq09OYDABnqyl at bedtime as needed for insomnia September 05, 2023 1:34pmFreeTextSi-2 tablets Orally HS as needed; Note: Source Status: Taking; Provider: Darling STEINERomplies with drug therapyIbuprofen 800 mg enuwzaUyrixvaiobxt605IPWCWmjye times daily as needed for painMarch 2023 1:35pmApril 2024 2:06pmFreeTextSi tablet with food or milk as needed Orally Three times a day; Note: Source Status: TakingPRN; Provider: Darling Camara ( )Mirtazapine 15 mg tabletDiscontinuedMGPODaily at bedtime as neededMarch 2023 1:35pmMay 2023 10:19amFreeTextSi/2 tablet at bedtime Orally Once a day; Note: Source Status: Taking; Provider: Darling Camara ( )Mirtazapine 15 mg ipwkmhQmyfgrmuzeqc68VANABvlfl at bedtime as needed for restless leg(s)October 29, 2023 10:18amApril 2024 2:06pmEzetimibe 10 mg tabletDiscontinuedMGPOMarch 2023 12:00amMarch 2023 1:34pmMethocarbamol 500 mg tabletDiscontinuedMGPOJune 2023 12:00am December 03, 2023 10:59amDexamethasone 2 mg tabletDiscontinuedMGPOJune 2023 12:00amNovember 2023 10:43amTerbinafine Hcl 1 % creamDiscontinuedAPPLIC TOPICALJune 2023 12:00amApril 2024 11:05amMethocarbamol 500 mg tablet Swjzkxpbkfnr329WIGTIpeh 2023 10:58amNovember 2023 10:45amCitalopram (Celexa) 10 mg wnjsjqKpwxshdoaolh52WSVNUopxe82Wdoe 2023 12:00amOctober 2023 11:02amBuspirone 5 mg hyferkHzvruaqtpxrt4XLUEKgwjlg 2023 12:00amJanuary 2024 10:50amAlprazolam (Xanax) 0.25 mg tabletDiscontinued 0.90WCTXUupah2929Bnieqj 2023 12:00amOctober 2023 11:01amHydrocodone- Acetaminophen 7.5-300 mg jccjacPyznecoulvni6JLXBHVitry dailyOct2023 12:00amNovember 2023 10:44amAmlodipine 10 mg omfepbOfqqidbmrblx59KEXHGsjks 9090October 2023 11:02amApril 2024 3:11pmLisinopril 10 mg tablet Juzkzvmgtjeg62QGKBFowna6399Jqisfrz 2023 11:02amApril 2024 3:11pm Citalopram (Celexa) 10 mg sdqaqgChfxqwnhazyw21PSDUSfqck08Ywrtcro 2023 11:02amApril 2024 3:11pmEvolocumab (Repatha Sureclick) 140 mg/mL pen evqtekrfKjduglhpdqox888BIIJGXSRSAELD 2 OQEYE355Fky 2024 12:00amMay 2024 9:56amPantoprazole 40 mg tablet,delayed release (DR/EC)Uhacci75BZWLXvwwj vphcm8129Kkce 2nd, 2025 2:10pmComplies with drug therapyAzithromycin (Zithromax Z-Slim) 250 mg muuyzaFwdfmjygxckj2WQ.RLOLZOQ8XswoNovember 19, 2024 12:00amSeptember 2024 11:11amFor 250 mg dose pack: take 500 mg today (day 1), then 250 mg for 4 days (days 2-5) POMethylprednisolone (Medrol (Slim)) 4 mg tablets,dose pack Avdjolpjrwvg2LOdrn package bfekwwuuve80Fxbj 4th, 2025 12:00amSept2024 11:11amPO PER PKG DIR for 6 daysDoxycycline Hyclate 100 mg capsuleDiscontinued 100MGPOTwice sqkbl8327Nvwn2024 12:00amSeptember 2024 11:11am Methylprednisolone 4 mg tablets,dose pnupPumesvjllvxv1VMhui package zdwsovzqph66 November 25, 2024 12:00amSept2024 11:11amPO PER PKG DIRPravastatin 40 mg jlqavnEotseuxwvobt27BMQKOpmhkRhuwqiiln 4th, 2025 12:00amSept2024 12:00pmEzetimibe 10 mg tmjdlnRgrozpfhfbpi60RHHROryxfHcuxvecur 4th, 2025 12:00am February 19, 2025 12:00pmTizanidine 4 mg acbwhzlJsoiyu8NKTPEcuov daily as neededSe2024 12:00amComplies with drug therapyClopidogrel 75 mg abpkxsOmcxow11MNHVYibzyXtsxlccbc 4th, 2025 12:00amComplies with drug therapy Citalopram 20 mg yjsocdSlyhcz18YIPJJjvcx88Nxwmvnaso 2024 11:51amComplies with drug therapyPravastatin 40 mg gxzomnRmfyid99GBATJgnyk91Hthopfmgp 4th, 2025 11:59amComplies with drug therapyEzetimibe 10 mg nbrurqBrwchk02XPWMKsrtq20 [place] 2024 11:59amComplies with drug therapyEzetimibe 10 mg tablet Yqizywfjhdnz68ZOSGLbabeFss 2023 12:00amMay 2023 10:42amPravastatin 40 mg irdecjDtmwsbcjgfoh12PBLSJpibxSxl 2023 12:00amMay 2023 10:42am Hydrocodone-Acetaminophen 5-325 mg tabletDiscontinuedTABPOEvery 8 hours [facility]23 12:00amOctober 2023 11:01amAmlodipine 10 mg tablet Bnaqyvgfbsdo85CIHMSdbgi3004Mcyuy 2023 12:00amJune 2023 12:15pm Lisinopril 5 mg khtjokKgopiotqnffy0DGNTKejle3622Kfahp 2023 12:00amMay 2023 9:30amLisinopril 10 mg xdejomCrxumxfipogv70ZKZFQbftx9205Nue 2023 12:00amJune 2023 1:20pmOxycodone-Acetaminophen (Percocet) 5-325 mg tablet Nbniuhwzdiny4BIKOQUmwky 8 hours as neededNovember 2023 1:00amApril 2024 11:05amPregabalin 50 mg urvtrhhTagjqrsxzyik29MMTPTweyjMvsveqk 2024 1:00amApril 2024 11:05amMethocarbamol 750 mg hmjklxZieabaacxozb526QXPZAofwn at bedtimeAbrazo [facility] Campusuary 2024 1:00amApril 2024 11:05amEzetimibe (Zetia) 10 mg ckdxqvPeecewdzjazt06ZOOXUtlcrOqiae 2024 12:00amMarch 2024 4:02pm Ycg5944-Fcb Dgs-Pcnz-Nlf-Asb-C (Plenvu) 140-9-5.2 gram powder in packet, meksufkzhcKuhxhdlcajwv1YL.ADLDUDW50Yuofk 2024 12:00amMay 2024 11:48am PO Immunizations Immunization Event Date Not Given Reason Dose Number Therapy Technician Lot Number Vaccine Information Statement (VIS) Detail Administration Location COVID-19 mRNA, Comirnaty (Pfizer) December 30 COVID-19 mRNA, Comirnaty (Pfizer)January 21, 2021Tetanus, Diphtheria, Pertussis (Tdap)March 15, 2014 Medical Equipment Device Date Implanted Device Details Multiple peripheral artery s tent, bare-metal May 07, 2023 BERNARD: [id number] Issuing Agency: [facility] Device Id: [id number] Expiration Date: 2024-03-20 Serial Number: [id number] Procedures Procedure Date Performed Status US ankle/arm indices February 26, 2025 1:22pm completed Relevant Diagnostic Tests and/or Laboratory Data Laboratory Results Test Collection Date/Time Result Date/Time Result Interpretation Reference Range Result Comment Performing Site Anion Gap January 27, 2025 9:59am January 27, 2025 9:59 am 7.0 Activated Partial Thromboplast TimeAugust 2024 9:59amAugu2024 9:59am24.2 sec22.3-36.2Prothromb Time International RatioAu2024 9:59amAugu2024 9:59am1.09DESIRED INR:2.0-3.0 CONDITIONS NOT LISTED BELOW2.5-3.5 FOR PROSTHETIC HEART VALVE REPLACEMENT2.5-3.5 RECURRENT THROMBOSIS Basophils # (Auto)January 27, 2025 9:59amAugu2024 9:59am0.0 10 3/uL 0.0-0.1D-Dimer Quantitative (PE/DVT)February 18, 2025 10:05pmSept2024 10:05pm0.56 mg/L FEU<=0.59Increases in D-Dimer concentration observed withthromboembolic events can be variable due to localization,size, and age of the thrombus. Therefore, a thromboembolicevent cannot be diagnosed with certa inty on the basis of thereference range. D-Dimers may also be elevated for a varietyof disorders including advanced age, , coronarydisease, cancer, liver disease, infection, inflammation,hematoma, DIC, trauma, post-surgery, diabetes, thrombolyticor anticoagulant therapy, stress, and general izedhospitalization.Troponin I High SensitivitySe2024 10:05pm February 18, 2025 10:05pm11.3 pg/mL4.0-76.1CUT-OFF POINTS HAVE BEEN ESTABLISHED BASED ON THE FOURTHUNIVERSAL DEFINITION OF MYOCARDIAL INFARCTION. THE UPPERREFERENCE LIMIT (URL) OF TROPONIN, DEFINED THE 99THPERCENTILE OF cTnI DISTRIBUTION IN A REFERENCE POPULATION,HAS BEEN CONFIRMED THE DECISION THRESHOLD FOR MIDIAGNOSIS.99TH PERCENTILE = 76.2 PG/MLNOTE: HIGH-SENSITIVITY TROPONIN ASSAY IS NOT INTENDED TO BEUSED IN ISOLATION BUT SHOULD BE INTERPRETED IN CONJUNCTIONWITH OTHER DIAGNOSTIC AND CLINICAL INFORMATION.Anion GapSept2024 10:05pmSept2024 10:05pm12.6Basophils # (Auto)February 18, 2025 10:05pmSept2024 10:05pm0.1 10 3/uL0.0-0.1BUN/Creatinine Ratio January 27, 2025 9:59amAugu2024 9:59am21.0Prothrombin TimeAugust 2024 9:59amAugu2024 9:59am11.5 sec9.0-11.6Basophils (%) (Auto)January 27, 2025 9:59amAugu2024 9:59am0.2 %0.2-2.0Albumin/Globulin Ratio February 18, 2025 10:05pmSept2024 10:05pm1.2Basophils (%) (Auto) February 18, 2025 10:05pmSept2024 10:05pm0.7 %0.2-2.0Blood Urea NitrogenAugust 2024 9:59amAugu2024 9:59am17.0 mg/dL7.0-18.0 Eosinophils # (Auto)January 27, 2025 9:59amAugu2024 9:59am0.0 10 3/uL 0.0-0.7AlbuminSept2024 10:05pmSept2024 10:05pm3.0 g/dL Below low normal3.4-5.0Eosinophils # (Auto)February 18, 2025 10:05pmSept2024 10:05pm0.1 10 3/uL0.0-0.7Calcium LevelAugust 2024 9:59amAugu2024 9:59am9.2 mg/dL8.5-10.1Eosinophils (%) (Auto)January 27, 2025 9:59am January 27, 2025 9:59am0.1 %Below low normal0.9-7.0Alkaline Phosphatase February 18, 2025 10:05pmSept2024 10:05pm68 U/P27-660Nudjzddtaha (%) (Auto)February 18, 2025 10:05pmSept2024 10:05pm1.1 %0.9-7.0 Chloride LevelAugust 2024 9:59amAugust 2024 9:03wf286 mmol/L98-107 HematocritAugust 2024 9:59amAugu2024 9:59am38.0 %Below low normal 42.0-54.0Alanine Aminotransferase (ALT/SGPT)February 18, 2025 10:05pmSept2024 10:05pm18 U/F60-42XlgrujlkpxEardayuvw 3rd, 2025 10:05pmSept2024 10:05pm39.7 %Below low tqabda36.0-54.0Carbon Dioxide LevelAugust 2024 9:59amAugu2024 9:59am28.7 mmol/L21.0-32.0HemoglobinAugust 2024 9:59amAugu2024 9:59am13.0 g/dLBelow low .0-18.0Aspartate Amino Transf (AST/SGOT)February 18, 2025 10:05pmSept2024 10:05pm11 U/L Below low regcaw74-22ScyroeqtqgDivrijpbz 3rd, 2025 10:05pmSept2024 10:05pm13.8 g/dLBelow low xykynm62.0-18.0CreatinineA2024 9:59am January 27, 2025 9:59am0.81 mg/dL0.70-1.30Immature Granulocyte # (Auto)January 27, 2025 9:59amA2024 9:59am0.02 10 3/uL0.00-0.03BUN/Creatinine RatioSept2024 10:05pmSept2024 10:05pm12.6Immature Granulocyte # (Auto)February 18, 2025 10:05pmSept2024 10:05pm0.02 10 3/uL0.00-0.03Estimated GFR ()January 27, 2025 9:59amA2024 9:59am>60>=60 mL/min/1.73m 2Immature Granulocyte % (Auto)January 27, 2025 9:59amAugu2024 9:59am0.2 %0.0-0.5Blood Urea NitrogenSept2024 10:05pmSept2024 10:05pm11.0 mg/dL7.0-18.0Immature Granulocyte % (Auto)February 18, 2025 10:05pmSept2024 10:05pm0.3 %0.0-0.5 Estimated GFR (Non- AmericanAugust 2024 9:59amA2024 9:59am>60>=60 mL/min/1.73m 2Lymphocytes # (Auto)January 27, 2025 9:59amAugu2024 9:59am2.4 10 3/uL1.2-3.8Calcium LevelSept2024 10:05pm February 18, 2025 10:05pm9.5 mg/dL8.5-10.1Lymphocytes # (Auto)February 18, 2025 10:05pmSept2024 10:05pm2.1 10 3/uL1.2-3.8Glucose LevelAugust 2024 9:59amAugust 2024 9:59am89 mg/tZ52-954Pkcjejozjzj (%) (Auto) January 27, 2025 9:59amAugu2024 9:59am29.3 %20.5-60.0Chloride Level February 18, 2025 10:05pmSept2024 10:53xs717 mmol/LAbove high uiewth40-784Yqhlpvjaypd (%) (Auto)February 18, 2025 10:05pmSept2024 10:05pm28.8 %20.5-60.0Potassium LevelAugus2024 9:59amAugu2024 9:59am3.7 mmol/L3.5-5.1Mean Corpuscular HemoglobinAugust 2024 9:59amAugu2024 9:59am32.1 pg25.9-34.0Carbon Dioxide LevelSept2024 10:05pm February 18, 2025 10:05pm27.5 mmol/L21.0-32.0Mean Corpuscular Hemoglobin February 18, 2025 10:05pmSept2024 10:05pm32.5 pg25.9-34.0Sodium LevelAugus2024 9:59amAugu2024 9:49oq031 mmol/L498-665Ggvr Corpuscular Hemoglobin ConcentAugus2024 9:59amAugu2024 9:59am 34.2 g/dL29.9-35.2CreatinineSept2024 10:05pmSept2024 10:05pm0.87 mg/dL0.70-1.30Mean Corpuscular Hemoglobin ConcentSept2024 10:05pmSept2024 10:05pm34.8 g/dL29.9-35.2Mean Corpuscular Volume January 27, 2025 9:59amAugu2024 9:59am93.8 fL80.0-94.0Estimated GFR ()February 18, 2025 10:05pmSeptember 2024 10:05pm>60>=60 mL/min/1.73m 2Mean Corpuscular VolumeSeptember 2024 10:05pmSept2024 10:05pm93.4 fL80.0-94.0Monocytes # (Auto)January 27, 2025 9:59amAugust 2024 9:59am0.4 10 3/uL0.3-0.8Estimated GFR (Non- AmericanSept2024 10:05pmSeptember 2024 10:05pm>60>=60 mL/min/1.73m 2Monocytes # (Auto)February 18, 2025 10:05pmSept2024 10:05pm0.4 10 3/uL0.3-0.8 Monocytes (%) (Auto)January 27, 2025 9:59amAugust 2024 9:59am5.0 % 1.7-12.0GlobulinSeptember 2024 10:05pmSeptember 2024 10:05pm2.5 g/dL Monocytes (%) (Auto)February 18, 2025 10:05pmSept2024 10:05pm5.6 % 1.7-12.0Mean Platelet VolumeAugust 2024 9:59amAugu2024 9:59am11.4 fL9.5-13.5Glucose LevelSeptember 2024 10:05pmSeptember 2024 10:05pm78 mg/mQ41-433Tdah Platelet VolumeSeptember 2024 10:05pmSeptember 2024 10:05pm11.4 fL9.5-13.5Neutrophils # (Auto)January 27, 2025 9:59amAugust 2024 9:59am5.4 10 3/uL1.4-6.5Potassium LevelSeptember 2024 10:05pmSeptember 2024 10:05pm4.1 mmol/L3.5-5.1Neutrophils # (Auto)February 18, 2025 10:05pmSeptember 2024 10:05pm4.7 10 3/uL1.4-6.5Neutrophils (%) (Auto)January 27, 2025 9:59amAugu2024 9:59am65.2 %43.0-75.0Sodium LevelSept2024 10:05pmSeptember 2024 10:79dv087 mmol/K451-038Lirfsjmijdd (%) (Auto)February 18, 2025 10:05pmSept2024 10:05pm63.5 %43.0-75.0 Platelet CountAugust 2024 9:59amAugu2024 9:20zx811 10 3/uT114-018 Total BilirubinSept2024 10:05pmSept2024 10:05pm0.8 mg/dL 0.2-1.0Platelet CountSept2024 10:05pmSept2024 10:99ps008 10 3/lZ063-605Ppu Blood CountAugus2024 9:59amAugu2024 9:59am 4.05 10 6/uLBelow low normal4.70-6.10Total ProteinSept2024 10:05pm February 18, 2025 10:05pm5.5 g/dLBelow low normal6.4-8.2Red Blood Count February 18, 2025 10:05pmSept2024 10:05pm4.25 10 6/uLBelow low normal4.70-6.10Red Cell Distribution WidthAugust 2024 9:59amAugu2024 9:59am14.1 %11.0-15.0Red Cell Distribution WidthSeptember 2024 10:05pm February 18, 2025 10:05pm13.4 %11.0-15.0Corrected White Blood CountAugust 2024 9:59amAugu2024 9:59am8.2 10 3/uL4.0-11.0Corrected White Blood CountSeptember 2024 10:05pmSeptember 2024 10:05pm7.4 10 3/uL 4.0-11.0 Diagnostic Imaging Reports Author Ruddy Harvey [facility] HospitalAuthoredSeptember 2024 7:41amReport Dictated Date/TimeDictated ByStatusRadiology ReportSeptember 2024 7:41am Ruddy Harvey [facility] Main [place] [address] [place] [address] Ultrasound Report Signed Patient: Jovani Kong MR#: [id number] : 1960 Acct:[id number] Age/Sex: 64 / M ADM Date: 5 Loc: Room: Type: [facility] Attending Dr: Jax [place] DO Ordering Provider: Jax [place] DO Date of Service: 02/26/25 US/US ankle/arm indices: I73.9 - Peripheral vascular disease, unspecified Copies to: Jax [place] DO~ LOWER EXTREMITY SEGMENTAL ARTERIAL DOPSCAN (PVR) INDICATION: Right leg numbness. PROCEDURE: Right arm blood pressure is 88 , left is 111 . Pressures at the right ankle are 120 using the posterior tibial artery, and 118 using the dorsalis pedis artery with ankle-brachial index of 1.08 1.06 . Pressures at the left ankle are 131 using the posterior tibial artery, and 123 with ankle-brachial index of 1.18 1.11 . Wave forms by plethysmography are normal. US/US ankle/arm indices IMPRESSION: NO HEMODYNAMICALLY SIGNIFICANT PERIPHERAL VASCULAR OCCLUSIVE DISEASE AT REST IN EITHER LOWER EXTREMITY. Impression dictated by: Ruddy Harvey MD,FACS,FSVS 02/27/2025 7:42 AM Dictation Location: RAD-DOC-04 Tech: Agueda Helm Transcribed By: PWS 02/27/25 0742 Dictated By: Ruddy Harvey MD 02/27/25 0741 Signed By: <Electronically signed by Ruddy Harvey MD in OV> 02/27/25 0742 Vital Signs Vital Reading Result Reference Range Collection Date/Time Height 68 [in_i] January 12, 2025 3:63yaBsdbjp98.73 kgJuly 2024 3:20pmHeart Rate76 /min 60-100July 2024 3:20pmBP Eaqzbmxk763 mm[Hg]100-140July 2024 3:20pmBP Bffxvowsb39 mm[Hg]60-100July 2024 3:20pmBMI (Body Mass Index)27.0 kg/m2 January 12, 2025 3:86cnOwuusk97 [in_i]February 19, 2025 11:14ehDhwibu30.12 kg February 19, 2025 11:25amHeart Yguw881 /ked62-939Tfbewjgcm 2024 11:25am Respiratory rate16 /tya71-63Phxdbkift 2024 11:25amOxygen saturation by Pulse ykmrqplk25 %95-100September 2024 11:25amBP Ybuxvcng183 mm[Hg]100-140 February 19, 2025 11:25amBP Smoiuddtq21 mm[Hg]60-100September 2024 11:25amBMI (Body Mass Index)24.1 kg/e4Kizmbedzm2024 11:33ajLhobwr14 [in_i] April 01, 2025 2:41vpDsoayn08.12 kgOctober 2024 2:04pmHeart Xhxo366 /icb85-547Nqgjozn 2024 2:04pmRespiratory rate16 /lpy48-66Fezeeul 2024 2:04pmOxygen saturation by Pulse ciazxnkm24 %95-100October 2024 2:04pmBP Wokvmmiu258 mm[Hg]100-140October 2024 2:04pmBP Hhnqrnkcr92 mm[Hg] 60-100October 2024 2:04pmBMI (Body Mass Index)24.1 kg/i6Bfoiole 2024 2:04pm Advance Directives Advance Directive Response Recorded Date/ Time Advance Directives No July 07, 2023 9:27am Insurance Providers Guarantor Jovani Kong Address [address] [place] [id number] Info.Home Phone: Payer Policy Id Subscriber's Name Subscriber Id Effectiv e Date Expiration Date Nahum PALUMBO [id number] Jovani Kong [id number] C [id number] Encounters Encounter Location(s) Arrival/Admit Date Discharge/Depart Date Provider(s) Departed Physician/Prov ider Office Visit -[facility] January 12, 2025 3:14pm January 12, 2025 3:38pm Harpreet Mcghee APRN Non-patient / Non-visit -[facility] ugust 2024 9:59am Sarina Ramsey MDNon-patient / [facility] February 18, 2025 10:05pmSofia Arias , [facility]/Provider [facility] 10:28amSept2024 12:04pmLILLIAM Val[facility]anew [facility] Clinical-Ultrasound [facility] February 26, 2025 1:18pmSept2024 1:19pmJax Hastings [facility] Family Medicine [facility] 2024 1:42pmOctober 2024 2:37pmJax [place] , DO Recent Diagnosis Onset Date Admit Date Colon polyps Unknown January 12, 2025 3:14pm Dyspepsia Unknown January 12, 2025 3:14pm GERD (gastroesophageal reflu x disease) Unknown January 12, 2025 3:14pm Anxiety and depression Unknown February 19, 2025 10:28am Burning sensation Unknown February 19, 2025 10:28am Colon polyps Unknown February 19 10:28am Hyperlipidemia Unknown February 19 10:28am Medicare annual wellness vis it, initial Unknown February 19, 2025 10:28am Nicotine dependence with current use Unknown February 19, 2025 10:28am PAD (peripheral artery disease) Unknown February 19, 2025 10:28am S/P cervical discectomy Unknown 2024 10:28am Screening for prostate cancer Unknown 2024 10:28am Burning sensation Unknown April 01, 2025 1:42pm Hypertension March 02, 2023March 1:42pm Assessments Author Shilpi Lantigua [facility] HospitalAuthoredSe2024 5:18pmSooner if needed, the ER if concerns,The above note written by Shilpi Lantigua LPN acting as human recorder, note dictated by Dr. Jax [place] Author Lin Covarrubias [facility] HospitalAuthoredOctober 2024 1:58pmThe above note written by YOBANI Stein acting as human recorder, note dictated by Dr.Brett [place]. Plan of Treatment Author Shilpi Lantigua [facility] HospitalAutredSeptember 2024 5:18pmCelexa has worked well overall but he does voice increased irritability therefore [...] iliac artery angioplasty and stenting using the [place] reentry device, intravascular ultrasound with interpretation [...] follow with all specialists as scheduled. Author Lin Covarrubias [facility] HospitalAuthoredOctober 2024 2:34pmPVR results reviewed with no hemodynamically significant peripheral vascular occlusive disease a t rest in either lower extremity. Negative D-dimer obtained at [facility] 02/18/25. Patient has history of a right external iliac artery angioplasty and stenting, distal right common iliac artery angioplasty and stenting using the [place] reentry device, intravascular ultrasound with interpretation 04/2023 performed by . Patient states he has stopped both Lisinopril and Amlodipine due to low blood pressure findings with the lowest of 88/50, symptomatic with presyncope Symptoms have resolved since stopping the medication.Labs ordered today, cardiology is managing lipids.Patient encouraged to continue monitoring home blood pressure findings and discuss with cardiology . Author René Montez [facility] HospitalJeanhoredJuvencio 2024 10:07amA 64-year-old male patient with diagnosis of GERD and dyspepsia, colon polyps [...] scheduled test information is unavailable Pending Tests Test Name Ordered Date Scheduled Date Comprehensive Metabolic Panel April 01, 2025 2:31pm Future Visits Future appointment information is unavailable Referrals to Other Providers Referral information is unavailable Future Procedures Procedure Name Ordered Date Scheduled Date Complete Blood Count Auto Diff April 01 2:31pm Lipid PanelOctober 2024 2:31pmThyroid Stimulating HormoneOctober 2024 2:31pm Future Medications Future medication information is unavailable Patient Instructions Patient instructions are unavailable
--- OUTSIDE RECORDS SUMMARY | 2025-04-09 10:59 | XMS_ITS | Encounter Summary ---
Author Organization [facility] Address [address] [address] Care Team Providers Care Sales Exhibitor Name Role Phone Jax Hastings DO Primary Care Provider [phone] Lilliam Cason MD Unavailable [phone] Encounter Details DateTypeDepartmentCare Team (Latest Contact Info)Ypfviceffdg03/20/2025Telephone [facility] Surgery Clinic [address] [place] [phone] Elisabet Pimentel MA Social History Tobacco UseTypesPacks/DayYears UsedDateSmoking Tobacco: Every DayCigarettes0.5 52.4Started: 1972Smokeless Tobacco: NeverAlcohol UseStandard Drinks/Week CommentsNever0 (1 standard drink = 0.6 oz pure alcohol)Humiliation, Afraid, Rape, and Kick questionnaireAnswerDate RecordedWithin the last year, have you been afraid of your partner or ex-partner?Patient unable to nxwbel9203/24/2025 Emotionally AbusedNot on file03/24/2025Physically AbusedNot on file03/24/2025 Sexually AbusedNot on file03/24/2025PHQ-2AnswerDate RecordedPatient Health Questionnaire-2 Dyxvd018Sex and Gender InformationValueDate RecordedSex Assigned at LygmlGmnn28/29/2025 1:20 PM EDTLegal MvjThpa6602/13/2025 9:31 AM EDT Gender UztuukvaPeoa62/29/2025 1:20 PM EDTSexual OrientationChoose not to poqfcqnb24/29/2025 1:20 PM EDTdocumented as of this encounter Miscellaneous Notes * Telephone Encounter - Ayah Ortega MA - 04/07/2025 12:06 PM EDT Clearance faxed to Dr. Harvey * Telephone Encounter - Elisabet Pimentel MA - 04/06/2025 3:19 PM EDT Patient called in and stated his blood thinner holding directions needs to come from his Vascular doctor in [place] - Dr. Harvey ph [phone] documented in this encounter Plan of Treatment Not on file documented as of this encounter Visit Diagnoses Not on filedocumented in this encounter Care Teams Team MemberRelationshipSpecialtyStart DateEnd Date aJx Hastings DO [address] [place] [phone] PCP - GeneralFamily Medicine02/13/25 Lilliam Cason MD [address] [place] [address] Referring PhysicianCardiovascular Iqhyfuz57/7/25documented as of this encounter
--- OUTSIDE RECORDS SUMMARY | 2025-04-09 10:59 | XMS_ITS | Clinical Summary ---
Author Organization [facility] Address [address] [place] [address] Care Team Providers Care High School Chemistry Teacher Name Role Phone Jax Hastings DO Primary Care Provider [phone] Lilliam Cason MD Unavailable [phone] Allergies Active AllergyReactionsCriticalityNoted AebfChnshzajGvispbenowSqrjr05/10/2019 Other Reaction(s): hives, Unknown Medications MedicationSigDispense QuantityRefillsLast FilledStart DateEnd DateStatus albuterol 90 mcg/actuation inhaler Inhale 2 puffs every 4 (four) hours if needed.07/02/2023ctive Praluent Pen 75 mg/mL pen injector 5Active aspirin 81 mg EC tablet Take 81 mg by mouth in the morning.04/14/2024ctive atorvastatin (Lipitor) 10 mg tablet Take 1 tablet by mouth in the morning.Active citalopram (CeleXA) 20 mg tablet Active clopidogrel (Plavix) 75 mg tablet Take 75 mg by mouth in the morning.06/27/2023ctive ezetimibe (Zetia) 10 mg tablet Take 10 mg by mouth in the morning.06/08/2023ctive HYDROcodone-acetaminophen ([place]) 7.5-325 mg tablet 03/04/2025tive hydrOXYzine HCL (Atarax) 25 mg tablet 05/26/2022ctive montelukast (Singulair) 10 mg tablet Take 10 mg by mouth.09/04/2022ctive pantoprazole (ProtoNix) 40 mg EC tablet 03/15/2025tive pravastatin (Pravachol) 40 mg tablet Take 40 mg by mouth.07/06/2023ctive pregabalin (Lyrica) 50 mg capsule Take 50 mg by mouth twice a day.5Active tiZANidine (Zanaflex) 4 mg capsule tizanidine 4 mg capsule take 1 capsule by mouth twice a day if needed for MUSCLE RPGIHLIRFA99/14/2025Active Active Problems ProblemNoted DateDiagnosed DateNerve root and plexus aiuwkvlk89/05/2024AD (coronary artery disease)02/26/2024Senile oqlzkmmdvadx23/18/2024Generalized anxiety vleskdbb94/26/2024cute effusion of left ear10/16/2023cute left-sided thoracic back pain10/16/2023cute ucgwqeftt18/30/2024nxiety and depression 10/16/2023V bloc first ljlbwn6010/16/2023rain mass10/16/2023urning sensation 10/16/2023ardiac yepvkytccf17/30/3364Femwkoqdp08/30/2024yshidrotic eczema 10/16/2023Essential gmxpyvjbykbz62/30/2024Heart block10/16/2023History of oral atemrp9410/16/20237141Lpgivbflfzexpr51/30/2024Osteoarthritis of hand10/16/2023AD (peripheral artery disease)10/16/2023aresthesia of left lower extremity 10/16/2023roductive cough10/16/2023entral pontine /13/2024 Mfpjrotz76/13/2024igarette nicotine dependence with nicotine-induced disorder 4Acute pain of left wkmumlwh56/05/2024ervical ypfacqsa81/16/2024 Radicular pain in left arm04/04/2023ervical tlimfsbtdipcp22/14/2023ervical paraspinal muscle spasm12/29/2022ervical stenosis of spinal canal12/29/2022ain in left arm12/29/2022reglaucoma, unspecified, right eye12/29/2022Skin sensation lykfmcjvjfp19/14/2023Visual qtqltjdsmet92/14/2309Tyormgiw36/14/2023ge-related nuclear cataract of right eye12/10/2022egeneration of cervical intervertebral disc12/10/2022Impairment of dzqnkbb3812/10/20226777Vbjnayxm13/25/2023Lumbar qgdencdsqznkv03/25/2023Malignant (primary) neoplasm, njolorcpkki24/25/2023 Jseyksb3412/10/2022Other abnormal findings on diagnostic imaging of central nervous qfcegw3112/10/20223128Vkezglawkqrz02/25/5368Bprhaicyyn37/25/2023Secondary and unspecified malignant neoplasm of lymph node, zpaefkourma47/25/2023Vertigo of central lipvpq4312/10/2022Neck pain11/23/2022ervico-occipital svuyxoigv59/08/2023 Brachial exgmhajrkx62/08/2023lioma of brain10/13/2021Lung wesuggt3410/13/2021 Primary squamous cell carcinoma of head and neck10/13/2021 Encounters DateTypeDepartmentCare XffwHzdhvyzesaq96/20/2025Telephone [facility] Surgery Clinic [address] [place] [address] Elisabet Pimentel MA 03/24/2025 10:30 AM EDTConsult [facility] [address] [place] [address] Isaias Ramirez MD 02/13/2025 - 02/13/2025 11:59 PM EDTHospital Encounter [facility] Radiology External Films [address] [place] [address] Discharge Disposition: Home or Self Care (01)02/13/2025Telephone [facility] Surgery Clinic [address] [place] [address] Ayah Ortega MA from Last 3 Months Family History Medical HistoryRelationNameCommentsCancerFatherRobert HallHeart diseaseMother Paty HallStrokePaternal GrandfatherRobert Kong JrRelationNameStatusComments FatherRobert HallAliveMotherBetty HallAlivePaternal GrandfatherRobert Kong Jr Alive Social History Tobacco UseTypesPacks/DayYears UsedDateSmoking Tobacco: Every DayCigarettes0.5 52.4Started: 1972Smokeless Tobacco: Never Tobacco Cessation:Ready to Q uit: Not Asked; Counseling Given: Not Answered Alcohol UseStandard Drinks/WeekCommentsNever0 (1 standard drink = 0.6 oz pure alcohol)Humiliation, Afraid, Rape, and Kick questionnaireAnswerDate Recorded Within the last year, have you been afraid of your partner or ex-partner?Patient unable to jzpjfm8303/24/2025Emotionally AbusedNot on file03/24/2025Physically AbusedNot on file03/24/2025Sexually AbusedNot on file03/24/2025PHQ-2AnswerDate RecordedPatient Health Questionnaire-2 Vxpvo335Sex and Gender InformationValueDate RecordedSex Assigned at CycaxXbtu09/29/2025 1:20 PM EDT Legal XtbTpqw3902/13/2025 9:31 AM EDTGender PvofjfsnBeig10/29/2025 1:20 PM EDT Sexual OrientationChoose not to kczyjxnd89/29/2025 1:20 PM EDT Last Filed Vital Signs Vital SignReadingTime TakenCommentsBlood Pghponxz657/7003/24/2025 10:42 AM EDT Swcxt559003/24/2025 10:42 AM IEPLwlnppratoa72.9 ??C (98.4 ??F)03/24/2025 10:42 AM EDTRespiratory Rate--Oxygen Saturation--Inhaled Oxygen Concentration--Xtgzjb81.6 kg (160 lb)03/24/2025 10:42 AM YZHPfrslm565.7 cm (5' 8 )03/24/2025 10:42 AM EDT Body Mass Index24.331 10:42 AM EDT Plan of Treatment Health MaintenanceDue DateLast DoneCommentsCT Wlxtiunygdqk26/09/1963Colonoscopy 1962Colorectal Cancer Ggowvabea64/09/1963FIT-DNA1962FIT1962 FOBT1962Medicare Annual Wellness (AWV)1962 8119Iraffihnxeeea69/09/1963 Pneumococcal Vaccine: Pediatrics (0 to 5 Years) and At-Risk Patients (6 to 64 Years) (1 of 2 - PCV)1981Zoster Vaccines (1 of 2)2012dult Tetanus COVID-19 Vaccine (3 - 2024- season)/11/2020, 12/30/2020Influenza Vaccine (#1)2025Depression Gtvxgyxci14/07/2026 03/24/2025HIB VaccinesAged OutNo longer eligible based on patient's age to complete this topicHPV VaccinesAged OutNo longer eligible based on patient's age to complete this topicIPV VaccinesAged OutNo longer eligible based on patient's age to complete this topicMeningococcal B VaccineAged OutNo longer eligible based on patient's age to complete this topicMeningococcal VaccineAged OutNo longer eligible based on patient's age to complete this topicRotavirus Vaccines Aged OutNo longer eligible based on patient's age to complete this topic Procedures Procedure NamePriorityDate/TimeAssociated DiagnosisCommentsMR TRANSFER OF OUTSIDE BRYBWNytxvrq19/29/2025 12:00 AM EDT from Last 3 Months Results * MR transfer of outside films (02/13/2025 12:00 AM EDT)Specimen (Source) Anatomical Location / LateralityCollection Method / VolumeCollection Time Received Time Narrative IMAGING - 02/13/2025 10:59 AM EDT This order has been auto-finalized and does not contain a result. Authorizing ProviderResult TypeResult StatusAlastair Dassel MDIMG MRI PROCEDURES Final ResultPerforming OrganizationAddressCity/State/ZIP CodePhone Number IMAGING from Last 3 Months Insurance MemberSubscriberPlan / Payer (Effective 2025-Present)Name:Jovani Kong Member ID:[id number] Relation to Subscriber:SelfName:Jovani Kong Subscriber ID:[id number] Payer ID:[id number] Group ID:Not on file Type:Medicare Address: [facility] [place] [id number] Care Teams Team MemberRelationshipSpecialtyStart DateEnd Date Jax Hastings DO [address] [place] [address] PCP - GeneralFamily Medicine02/13/25 Lilliam Cason MD [address] [place] [address] Referring PhysicianCardiovascular Eipeodh34/7/25
--- OUTSIDE RECORDS SUMMARY | 2025-04-09 10:59 | XMS_ITS | Clinical Summary ---
Author Organization [facility] Address [address] [place] [address] Phone Care Team Providers Care Sanitation Tank Washer Name Role Phone Jax Hastings Neisha DO Primary Care Provider [phone] Helder Saleem MD Unavailable René Narayanan PA-C Unavailable [phone] Allergies Active AllergyReactionsCriticalityNoted LvvxFpxdtplvHfhtcpYkwdk06/19/2024 Medications MedicationSigDispense QuantityRefillsLast FilledStart DateEnd DateStatus amLODIPine (Norvasc) 10 mg tablet Take by mouth once daily.Active lisinopril 10 mg tablet Take 1 tablet (10 mg) by mouth once daily.Active citalopram (CeleXA) 10 mg tablet Take 1 tablet (10 mg) by mouth once daily.Active busPIRone (Buspar) 5 mg tablet Take by mouth 2 times a day.Active aspirin 81 mg EC tablet Indications:Cervical radiculopathyTake 1 tablet (81 mg) by mouth once daily. Do not fill before April 14, 2024.04/14/2024ctive albuterol 90 mcg/actuation inhaler Indications:Cervical radiculopathyInhale 2 puffs every 4 hours if needed for wheezing or shortness of breath. 18 g ctive clopidogrel (Plavix) 75 mg tablet Indications:Cervical radiculopathyTake 1 tablet (75 mg) by mouth once daily. Do not fill before April 23, 2024.04/23/2024ctive cyclobenzaprine (Flexeril) 10 mg tablet Indications:Muscle spasms of neckTake 1 tablet (10 mg) by mouth every 8 hours if needed for muscle spasms. 90 tablet 04/30/2024ctive cyclobenzaprine (Flexeril) 10 mg tablet Indications:muscle spasmTake 1 tablet (10 mg) by mouth 3 times a day as needed for muscle spasms for up to 7 days. 21 tablet 4Active pregabalin (Lyrica) 50 mg capsule Indications:Status post cervical spinal fusionTake 1 capsule (50 mg) by mouth 2 times a day. 60 capsule 5Active Active Problems ProblemNoted DateDiagnosed DateCAD (coronary artery disease)02/26/2024eripheral vascular xeexrcv4302/26/2024ervical msemiediajxog78/18/2024Senile osteoporosis 01/03/2024 Family History Medical HistoryRelationNameCommentsThroat cancerFatherbladder cancerFatherHeart diseaseMotherRelationNameStatusCommentsFatherMother Social History Tobacco UseTypesPacks/DayYears UsedDateSmoking Tobacco: Every DayCigarettes0.5 51.8Started: 1974Passive Smoke Exposure: NeverSmokeless Tobacco: Never Tobacco Cessation:Ready to Q uit: Yes; Counseling Given: Yes Alcohol UseStandard Drinks/WeekCommentsNot Currently0 (1 standard drink = 0.6 oz pure alcohol)AUDIT-CAnswerDate RecordedQ1: How often do you have a drink containing alcohol?Never04/09/2024Q2: How many drinks containing alcohol do you have on a typical day when you are drinking?Patient does not drink04/09/2024Q3: How often do you have six or more drinks on one occasion?Never04/09/2024Overall Financial Resource Strain (CARDIA)AnswerDate RecordedHow hard is it for you to pay for the very basics like food, housing, medical care, and heating?Not hard at all04/09/2024HQ-2AnswerDate RecordedPatient Health Questionnaire-2 Score2 10/13/2024PRAPARE - TransportationAnswerDate RecordedIn the past 12 months, has lack of transportation kept you from medical appointments or from getting medications?No04/09/2024In the past 12 months, has lack of transportation kept you from meetings, work, or from getting things needed for daily living?No 04/09/2024Housing Stability Vital SignAnswerDate RecordedIn the last 12 months, was there a time when you were not able to pay the mortgage or rent on time?No 04/09/2024In the past 12 months, how many times have you moved where you were living?t any time in the past 12 months, were you homeless or living in a nursing home (including now)?No04/09/2024Sex and Gender InformationValueDate RecordedSex Assigned at RwlhgZkar13/29/2024 6:37 PM EDTLegal DqhIbar37/26/2022 3:14 AM ESTGender GkzdqaewJoom34/29/2024 6:37 PM EDTSexual OrientationStraight 09/14/2023 6:37 PM EDT Last Filed Vital Signs Vital SignReadingTime TakenCommentsBlood Blvumhqx232/60010/13/2024 9:06 AM EDT Xqnse808010/13/2024 9:06 AM GWMLmiiqiufigq16.7 ??C (98.1 ??F)04/10/2024 12:11 PM EDTRespiratory Wbte9381 12:11 PM EDTOxygen Vkddeoghuk59%04/10/2024 9:20 AM EDTInhaled Oxygen Concentration--Znqrnb10.2 kg (168 lb)10/13/2024 9:06 AM EDT Qlqufw408.7 cm (5' 8 )10/13/2024 9:06 AM EDTBody Mass Index25.54010/13/2024 9:06 AM EDT Plan of Treatment DateTypeDepartmentCare Team (Latest Contact Info)Gsmgdtamhsu28/10/2026 9:00 AM EDTOffice Visit [facility] [address] [facility] [address] [place] [address] Doretha Harris MD [address] [place] [address] Health MaintenanceDue DateLast DoneCommentsCT Zspossrjbzhj96/09/1963Colonoscopy 1962Colorectal Cancer Muusuqlrl69/09/1963FIT-DNA (Cologuard)1962FIT 1962HIV Kounizyot34/09/1963Lipid Panel1962Medicare Annual Wellness Visit (AWV)1962 4409Dtxqaivzykugr80/09/1963MMR Vaccines (1 of 1 - Standard series)11/25/1963Hepatitis C Utmkousrr94/09/1981Pneumococcal Vaccine (1 of 2 - PCV)1981Lung Cancer Djfykflkc65/09/2013PSA Prostate Cancer Screening 2012Zoster Vaccines (1 of 2)2012RSV High Risk: (Elderly (60+) or Population) (1 - Risk 60-74 years 1-dose series)3DTaP/Tdap/Td Vaccines (2 - Td or Tdap)Influenza Vaccine (#1)2025 COVID-19 Vaccine (1 - season)2025Diabetes Ecxkzpccp93/24/2025 04/10/2024, 02/11/2024, 02/01/2019, Additional history existsBone Density Scan Ruisgyncxflr81/28/2024HIB VaccinesAged OutNo longer eligible based on patient's age to complete this topicHPV VaccinesAged OutNo longer eligible based on patient's age to complete this topicHepatitis A VaccinesAged OutNo longer eligible based on patient's age to complete this topicHepatitis B VaccinesAged OutNo longer eligible based on patient's age to complete this topicIPV Vaccines Aged OutNo longer eligible based on patient's age to complete this topic Meningococcal VaccineAged OutNo longer eligible based on patient's age to complete this topicRotavirus VaccinesAged OutNo longer eligible based on patient's age to complete this topic Goals GoalPatient Goal TypeAssociated ProblemsRecent ProgressPatient-Stated?Author Help patient manage spine surgery Care PlanPatient has spine surgeryDoretha Wasserman MD Medical Devices ImplantedTypeAreaManufacturerDevice IdentifierShelf Expiration DateModel / Serial / LotAllograft, Triad Lordotic 6 X 11 X 14 - [id number] - [id number] Implanted:Qty: 1 on 04/09/2024 [facility]: [employer]03/14/[id number] / [id number] / Allograft, Triad Lordotic 6 X 11 X 14 - [id number] - [id number] Implanted:Qty: 1 on 04/09/2024 [facility]N/A: [employer]04/29/[id number] / [id number] / Plate, Acp, 1.6v, 2 Level, 34mm - [id number] Implanted:Qty: 1 on 04/09/2024 [facility]N/A: [employer] [id number] / / Screw, Acp, Self Drill, 3.5 X 17mm, Variable - [id number] Implanted:Qty: 2 on 04/09/2024 [facility]N/A: [employer] [id number] / / 3.5 X 19mm Screw Implanted:Qty: 4 on 04/09/2024 by Rojas Edwards MD at [facility]N/A: [employer] [id number] / / Description:per bill only jdr 04/10 Procedures Procedure NamePriorityDate/TimeAssociated DiagnosisCommentsBASIC METABOLIC PANEL Whqxwxw6204/10/2024 9:19 AM EDT DEXA BONE QKVQHGZVmrcymn76/28/2024 10:50 AM EDT Cervical radiculopathy from Last 3 Months or Most Recently Relevant to Health Maintenance Results * (ABNORMAL) Basic metabolic panel (04/10/2024 9:19 AM EDT)ComponentValueRef RangeTest MethodAnalysis TimePerformed AtPathologist VletvmyowDitdivj349(H)74 - 99 mg/dL LAB CHEMISTRY METHOD 04/10/2024 10:32 [facility] XXJItbbzu833526 - 145 mmol/L LAB CHEMISTRY METHOD 04/10/2024 10:32 AM EDFORMERLY [facility] LABPotassium4.53.5 - 5.3 mmol/L LAB CHEMISTRY METHOD 04/10/2024 10:32 AM [facility] EQYMnuwqhoq07173 - 107 mmol/L LAB CHEMISTRY METHOD 04/10/2024 10:32 AM [facility] DMRQgniudbgsmr2119 - 32 mmol/L LAB CHEMISTRY METHOD 04/10/2024 10:32 AM [facility] LABAnion Frp0893 - 20 mmol/L LAB CHEMISTRY METHOD 04/10/2024 10:32 AM [facility] LABUrea Xlfecugf844 - 23 mg/dL LAB CHEMISTRY METHOD 04/10/2024 10:32 AM [facility] LABCreatinine0.860.50 - 1.30 mg/dL LAB CHEMISTRY METHOD 04/10/2024 10:32 AM [facility] LABeGFR>90>60 mL/min/1.73m*2 LAB CHEMISTRY METHOD 04/10/2024 10:32 AM [facility] LABComment: Calculations of estimated GFR are performed using the 2020 CKD-EPI Study Refit equation without therace variable for the IDMS-Traceable creatinine methods. https://jasn.asnjournals.org/content//ASN.1325496805 Calcium9.08.6 - 10.6 mg/dL LAB CHEMISTRY METHOD 04/10/2024 10:32 AM [facility] LABSpecimen (Source)Anatomical Location / LateralityCollection Method / VolumeCollection TimeReceived TimeBloodVenous blood specimen / UnknownVenipuncture / Tkqujys1004/10/2024 9:19 AM EDT1 10:03 AM EDT Narrative Authorizing ProviderResult TypeResult StatusXiaodale Harris MDLAB BLOOD ORDERABLES Final ResultPerforming OrganizationAddressCity/State/ZIP CodePhone Number [address] [address] * XR DEXA bone density (02/13/2024 10:50 AM EDT)Specimen (Source)Anatomical Location / LateralityCollection Method / VolumeCollection TimeReceived Time 12/29/2024 8:11 AM EDT12/29/2024 8:11 AM EDT [facility] 12/29/2024 8:09 AM EDT DEXA: Moderately low bone mineral density ?? FRAX and Z-Score calculations include ethnicity in determining the score for these values, as determined by organizations such as the NIH, WHO and NOF. ?? All images and detailed analysis are available on the Radiology PACS. ?? MACRO: None ?? Signed by: Ruddy Lopez 12/29/2024 8:09 AM Dictation workstation: ?? [id number] Narrative [facility] - 12/29/2024 8:09 AM EDT Interpreted By: Ruddy Lopez, STUDY: DEXA BONE DENSITY02/13/2024 10:50 am ?? INDICATION: Signs/Symptoms:r/o osteoporosis, NEED AXIAL SKELETON IMAGES.. The patient is a 63 y/o ??year old M. ?? ,M54.12 Radiculopathy, cervical region ?? COMPARISON: None. ?? ACCESSION NUMBER(S): [id number] ?? ORDERING CLINICIAN: DORETHA HARRIS ?? TECHNIQUE: DEXA BONE DENSITY ?? FINDINGS: SPINE L1-L4 Bone Mineral Density: 1.162 T-Score -0.6 ??Z-Score -0.4 Bone Mineral Density change vs baseline: ??Not reported Bone Mineral Density change vs previous: Not reported ?? LEFT FEMUR -TOTAL Bone Mineral Density: 0.855 T-Score -1.7 ?? Z-Score ??-1.3 Bone Mineral Density change vs baseline: Not reported Bone Mineral Density change vs previous: Not reported ?? LEFT FEMUR -NECK Bone Mineral Density: 0.818 T-Score -1.9 ??Z-Score -1.1 Bone Mineral Density change vs baseline: Not reported Bone Mineral Density change vs previous: Not reported ? World Health Organization (WHO) criteria for post-menopausal, Women: Normal: ? T-score at or above -1 SD Osteopenia: ?? T-score between -1 and -2.5 SD Osteoporosis: T-score at or below -2.5 SD ? 10-year Fracture Risk: Major Osteoporotic Fracture ??15.9 Hip Fracture ?4.7 ?? Note: ??If no FRAX score is reported, it is because: Some T-score for Spine Total or Hip Total or Femoral Neck at or below -2.5 ?? Procedure Note Ruddy Lopez MD - 12/29/2024 Interpreted By: Ruddy Lopez, STUDY: DEXA BONE DENSITY02/13/2024 10:50 am INDICATION: Signs/Symptoms:r/o osteoporosis, NEED AXIAL SKELETON IMAGES.. The patient is a 63 y/o year old M. ,M54.12 Radiculopathy, cervical region COMPARISON: None. ACCESSION NUMBER(S): [id number] ORDERING CLINICIAN: DORETHA HARRIS TECHNIQUE: DEXA BONE [...] Ruddy Lopez 12/29/2024 8:09 AM Dictation workstation: [id number] Authorizing ProviderResult TypeResult StatusXiaodale EDMONDSON DXA PROCEDURES Final ResultPerforming OrganizationAddressCity/State/ZIP CodePhone Number [facility] MMODAL from Last 3 Months or Most Recently Relevant to Health Maintenance Additional Health Concerns Active ProblemsNoted DateDiagnosed DatePatient has spine otvdsfo3901/09/2024 Insurance * Guarantor: Se Kong TypeRelation to PatientDate of BirthPhoneBilj.w. [facility] AddressPersonal/SvzhkyQgas70/09/1961 [address] [place] [address] Advance Directives For more information, please contact: [phone] (Available ) TypeDate RecordedPatient RepresentativeExplanationLiving Will10/05/2023 9:39 AM * Full Code (Latest Code Status on File) Date ActivatedDate XwufukseqvoAlktzwmo49/23/2024 6:57 PMQuestionAnswerComments Plan of Care:* Code Status Discussion Completed Decision Maker:* Patient * Full Code Date ActivatedDate HijhshzmshbFapqbkpo10/23/2024 11:50 AM04/09/2024 6:57 PM QuestionAnswerCommentsPlan of Care:* Code Status Discussion Completed Decision Maker:* Patient Care Teams Team MemberRelationshipSpecialtyStart DateEnd Date aJx Hastings DO [address] [place] [address] [facility]01/03/19 [place] [address] [place] [address] Consulting PhysicianHematology and Oncology10/05/23 René Narayanan PA-C [address] [place] [address] Physician AssistantNeurosurgery12/12/23
--- OUTSIDE RECORDS SUMMARY | 2025-04-09 10:59 | XMS_ITS | Clinical Summary ---
Author Organization [facility] Address [address] [place] [address] Care Team Providers Care Research Computing Specialist Name Role Phone Jax Hastings Primary Care Provider [phone] Jax Hastings Unavailable [phone] Oziel Cadena MD Unavailable [phone] Allergies Active AllergyReactionsCriticalityNoted FujlVbimfxynPnluntgsjnHlmlt69/10/2019 Medications MedicationSigDispense QuantityRefillsLast FilledStart DateEnd DateStatus citalopram (CELEXA) 40 mg tablet Take 40 mg by mouth once daily.Active Multivitamin capsule Take 1 capsule by mouth once daily.Active iv contrast (will be provided with radiology test) Indications: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 Discontinue saline lock post exam. If Pt. has a central line or IVAD, may access for administration according to line specific nursing protocol. Once exam is complete flush line and de-access according to line specific nursing protocol in theCT contrast administration guidelines link. 1 Each 03/15/2020Active Additional Information Patient not taking.Reported on 11/07/2024 hydrOXYzine HCl (ATARAX) 25 mg tablet take 1 to 2 tablets by mouth at bedtime if druggb6305/26/2022ctive mirtazapine (REMERON) 15 mg tablet Take by mouth daily at bedtime.3Active montelukast (SINGULAIR) 10 mg tablet Take 10 mg by mouth daily at bedtime.09/04/2022ctive amLODIPine (NORVASC) 10 mg tablet Take 10 mg by mouth once daily.Active atorvastatin (LIPITOR) 10 mg tablet Take 1 tablet by mouth once daily.Active lisinopril (ZESTRIL) 10 mg tablet Take 1 tablet by mouth every afternoon.10/18/2023ctive HYDROcodone-acetaminophen (NORCO) 5-325 mg per tablet take 1 tablet orally daily NEEDED FOR PAIN MUST LAST 30 DAYS06/04/2023ctive ezetimibe (ZETIA) 10 mg tablet Take 10 mg by mouth.06/08/2023ctive clotrimazole-betamethasone (LOTRISONE) cream Active clopidogrel (PLAVIX) 75 mg tablet Take 75 mg by mouth.06/27/2023ctive pravastatin (PRAVACHOL) 40 mg tablet Take 40 mg by mouth.07/06/2023ctive iv contrast (will be provided with radiology test) Indications: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 Discontinue saline lock post exam. If Pt. has a central line or IVAD, may access for administration according to line specific nursing protocol. Once exam is complete flush line and de-access according to line specific nursing protocol in theCT contrast administration guidelines link. 1 each 5Active Additional Information Patient not taking.Reported on 11/07/2024 Active Problems ProblemNoted DateDiagnosed Date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Lung miyklbt8610/13/2021Glioma of brain10/13/2021 Immunizations ImmunizationAdministration DatesNext Duetetanus diphtheria pertussis (Tdap) vaccine, age 7+ yr (ADACEL, BOOSTRIX)03/15/2014 Family History Medical HistoryRelationCommentsCancerFatherBladder cancer, Larynx cancerCancer Paternal GrandfathercancerRelationStatusCommentsFatherDeceasedPaternal GrandfatherDeceased Social History Tobacco UseTypesPacks/DayYears UsedDateSmoking Tobacco: FormerCigarettes1.540 Smokeless Tobacco: Never Comments:quit smoking 01/2019 Alcohol UseStandard Drinks/WeekCommentsNot Currently0 (1 standard drink = 0.6 oz pure alcohol)quit 2002PHQ-2AnswerDate RecordedPHQ-2 ceaxn334rea Deprivation IndexAnswerDate RecordedNational Score (1-100), lower number is lower irom8378State Score (1-10), lower number is lower qmwv236 Data from: https://www.neighborhoodatlas.medicine.[facility]/. Last address used for jwxjbvvydwn[address]11/03/2022Sex and Gender InformationValueDate RecordedSex Assigned at GteqaMsvg54/05/2023 2:46 PM EDTLegal FsuEbym0211/19/2018 10:55 AM EDTGender HzsjjhlmTjcm79/05/2023 2:46 PM EDTSexual OrientationStraight 09/20/2022 2:46 PM EDTOccupationIndustryJob Start DateJob End DateGliddenNot on fileNot on fileNot on fileTree ServiceNot on fileNot on fileNot on file Last Filed Vital Signs Vital SignReadingTime TakenCommentsBlood Dokpuyqx227/8905 9:23 AM EDT Aqiqc8411/23/2025 9:23 AM CGNVixhldqmtgc82.4 ??C (97.5 ??F)11/07/2024 9:23 AM EDTRespiratory Kjyc831311/07/2024 9:23 AM EDTOxygen Dzizijyixy11%11/07/2024 9:23 AM EDTInhaled Oxygen Concentration--Bcpods38.3 kg (174 lb 13.2 oz)11/07/2024 9:23 AM SVDJjghzq472.6 cm (5' 7.17 )11/07/2024 9:23 AM EDTBody Mass Index27.25 11/07/2024 9:23 AM EDT Plan of Treatment DateTypeDepartmentCare Team (Latest Contact Info)Mulrlqrjtwn27/15/2026 10:15 AM EDTAppointment Radiology Pet CT [address] [place] [address] Ct CN with contrast and lab11/06/2025 9:00 AM EDTVisit (SP) Office Hematology/Oncology [address] [place] [address] Memo Acevedo MD [address] [place] [address] 1 year follow up for ct and lab resultsHealth MaintenanceDue DateLast Done CommentsAnxiety Pypckobrx99/09/1981Depression Rjjssamle23/09/1981HIV Screening 1980Hepatitis C Jjfpujkfx23/09/1981Lipid Tigebwvkd97/09/1998CT Nusbnyeryjvh52/09/2008Cologuard (FIT-DNA)11/25/20074783Mfmcpvspkim25/09/2008 Colorectal Cancer Mndrjzrre30/09/2008Fecal Occult Blood11/25/2007Prostate Cancer Screening Wtsvclsxqe19/09/8302Qhlwjpwctddid47/09/2008Pneumococcal Vaccine: 50+ (1 of 1 - PCV)2012Shingrix Vaccine (1 of 2)2012Medicare Annual Wellness Visit4DTaP,Tdap,Td Vaccine (2 - Td or Tdap)03/15/2024 03/15/2014Covid-19 Vaccine (3 - 2024- season)/11/2020, 12/30/2020 Influenza Vaccine (#1)2025Diabetes [place]03/, 02/11/2024, 10/26/2023, Additional history existsRSV Vaccine (1 - 1-dose 75+ series)2037 Procedures Procedure NamePriorityDate/TimeAssociated DiagnosisCommentsCOMPREHENSIVE METABOLIC IASZOOnambhj54/10/2024 9:02 AM EDT 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) from Last 3 Months or Most Recently Relevant to Health Maintenance Results * (ABNORMAL) COMP METABOLIC PANEL (10/26/2023 9:02 AM EDT)ComponentValueRef RangeTest MethodAnalysis TimePerformed AtPathologist SignatureProtein, Total 6.46.3 - 8.0 g/dL10/26/2023 9:39 AM [facility] Albumin4.33.9 - 4.9 g/dL10/26/2023 9:39 AM [facility] LABCalcium, Total9.98.5 - 10.2 mg/dL10/26/2023 9:39 AM [facility] LABBilirubin, Total0.50.2 - 1.3 mg/dL10/26/2023 9:39 AM [facility] LABAlkaline Seknxwotsak1406 - 113 U/L 10/26/2023 9:39 AM [facility] LABAST9(L)14 - 40 U/L 10/26/2023 9:39 AM [facility] TZHZPD3805 - 54 U/L 10/26/2023 9:39 AM [facility] FZRDpxwkvp9450 - 99 mg/dL10/26/2023 9:39 AM [facility] LABComment: The [place] Diabetes Association (ADA) provides guidance for cutoff values for fasting glucose andrandom glucose. The ADA defines fasting as no [...] Standards of Medical Care in Diabetes 2016, [place] Diabetes Association. Diabetes Care. 2016.39(Suppl 1). CLY474 - 24 mg/dL10/26/2023 9:39 AM [facility] Creatinine1.010.73 - 1.22 mg/dL10/26/2023 9:39 AM [facility] JAQDzexbx377358 - 144 mmol/L10/26/2023 9:39 AM [facility] LABPotassium4.03.7 - 5.1 mmol/L10/26/2023 9:39 AM [facility] HVCJzqnwgug486(H)97 - 105 mmol/L10/26/2023 9:39 AM EDT [facility] VWEOX90984 - 30 mmol/L10/26/2023 9:39 AM EDT [facility] LABAnion Gap8(L)9 - 18 mmol/L10/26/2023 9:39 AM [facility]TNORTKALKASK[facility] LABEstimated Glomerular Filtration Rate 85>=60 mL/min/1.73m 10/26/2023 9:39 AM EDTBRAX[facility] LABComment:Estimated Glomerular Filtration Rate (eGFR) is calculated using the 2020 CKD-EPI creatinine equation. This equation utilizes serum creatinine, sex, and age as parameters. The creatinine assay has traceable calibration to isotope dilution- mass spectrometry. Refer to KDIGO guidelines for clinical interpretation. In patients with unstable renal function, e.g. those with acute kidney injury, the eGFRmay not accurately reflect actual GFR.Specimen (Source)Anatomical Location / LateralityCollection Method / VolumeCollection TimeReceived TimeBloodBLOOD SPECIMEN / UnknownVenipuncture / Pkkxlqg0510/26/2023 9:02 AM EDT10/26/2023 9:11 AM EDT Narrative Authorizing ProviderResult TypeResult StatusVivenori Acevedo MDLABORATORYFinal ResultPerforming OrganizationAddressCity/State/ZIP CodePhone Number [facility] [address] [place] [address] from Last 3 Months or Most Recently Relevant to Health Maintenance Insurance Care Teams Team MemberRelationshipSpecialtyStart DateEnd Date Jax Hastings [address] [place] [phone] PCP - GeneralFamily Medicine11/20/18 Jax Hastings [address] [place] [phone] ReferringFamily Medicine11/20/18 Oziel Cadena MD [address] [facility] [address] [address] ReferringNeurology08/18/22
--- OUTSIDE RECORDS SUMMARY | 2025-04-09 10:59 | XMS_ITS | Clinical Summary ---
Author Organization [facility] Address [address], [address] [place] [address] Care Team Providers Care Technical Assistant Name Role Phone Jax Hastings DO Primary Care Provider [phone] Allergies Active AllergyReactionsCriticalityNoted BuscOfpamuztUmmziodwyqJzrcs85/10/2019 Other Reaction(s): hives, Unknown Medications MedicationSigDispense QuantityRefillsLast FilledStart DateEnd DateStatus albuterol sulfate HFA (PROVENTIL;VENTOLIN;PROAIR) 108 (90 Base) MCG/ACT inhaler Inhale 2 puffs into the lungs every 4 hours as ohmhvq8407/02/2023ctive amLODIPine (NORVASC) 5 MG tablet Take 1 tablet by mouth dailyActive azithromycin (ZITHROMAX) 250 MG tablet take 2 tablets by mouth TODAY then take 1 tablet DAILY FOR 4 DAYS07/02/2023 Active clopidogrel (PLAVIX) 75 MG tablet Take 1 tablet by mouth daily06/27/2023ctive HYDROcodone-acetaminophen (NORCO) 5-325 MG per tablet take 1 tablet orally daily NEEDED FOR PAIN06/04/2023ctive ibuprofen (ADVIL;MOTRIN) 600 MG tablet ibuprofen 600 mg tablet take 1 tablet by mouth every 8 hours NEEDED FOR PAINActive hydrOXYzine HCl (ATARAX) 25 MG tablet hydroxyzine HCl 25 mg tablet take 1 to 2 tablets by mouth at bedtime if bqnemz0905/26/2022ctive indomethacin (INDOCIN SR) 75 MG extended release capsule indomethacin ER 75 mg capsule,extended release take 1 capsule by mouth once daily with foodActive montelukast (SINGULAIR) 10 MG tablet montelukast 10 mg tablet take 1 tablet by mouth at jownyxp74/20/2023Active mirtazapine (REMERON) 15 MG tablet take 1/2 tablet by mouth at bedtimeActive tiZANidine (ZANAFLEX) 4 MG capsule take 1 capsule orally twice a day if needed for MUSCLE SPASTICITYActive Active Problems No known active problems Social History Tobacco UseTypesPacks/DayYears UsedDateSmoking Tobacco: Every DayCigarettes Smokeless Tobacco: Never Tobacco Cessation:Ready to Q uit: No; Counseling Given: Yes Sex and Gender InformationValueDate RecordedSex Assigned at BirthNot on file Legal SvdBhrd40/27/2023 9:50 AM ESTGender IdentityNot on fileSexual Orientation Not on file Last Filed Vital Signs Vital SignReadingTime TakenCommentsBlood Okrtjpeg477/78011/05/2023 10:44 AM EDT Pulse--Xvatklalepd81.3 ??C (97.4 ??F)11/05/2023 10:44 AM EDTRespiratory Rate-- Oxygen Saturation--Inhaled Oxygen Concentration--Uflleo03.6 kg (180 lb) 11/05/2023 10:44 AM QGLKalgkk121.7 cm (5' 8 )11/05/2023 10:44 AM EDTBody Mass Index27.37011/05/2023 10:44 AM EDT Plan of Treatment Health MaintenanceDue DateLast DoneCommentsDepression Eerhyl2211/24/1974HIV screen 1977Hepatitis C nnocbp6011/24/1980Pneumococcal 50+ years Vaccine (1 of 2 - PCV)11/24/19811808Mvjgbi49/09/2403Cutvlsgwmwl76/09/2008Colorectal Cancer Screen 11/25/2007FIT/FOBT: Average risk11/25/2007Fecal-DNA (Cologuard): Average risk 11/25/2007Sigmoidoscopy/CT vwaknrfhkhwe91/09/2008Shingles vaccine (1 of 2) 2012DTaP/Tdap/Td vaccine (2 - Td or Tdap)/Flu vaccine (#1)01/16/2025OVID-19 Vaccine (3 - season)/11/2020, 12/30/2020espiratory Syncytial Virus (RSV) or age 60 yrs+ (1 - 1-dose 75+ series)2037Hepatitis A vaccineAged OutNo longer eligible based on patient's age to complete this topicHepatitis B vaccineAged OutNo longer eligible based on patient's age to complete this topicHib vaccineAged OutNo longer eligible based on patient's age to complete this topicMeningococcal (ACWY) vaccineAged OutNo longer eligible based on patient's age to complete this topicMeningococcal B vaccineAged OutNo longer eligible based on patient's age to complete this topicPolio vaccineAged OutNo longer eligible based on patient's age to complete this topic Insurance Care Teams Team MemberRelationshipSpecialtyStart DateEnd Date Jax Hastings DO [address] [place] [id number] [facility]CP - [facility]ly Losrmsyt13/27/23
--- OUTSIDE RECORDS SUMMARY | 2025-04-09 10:59 | XMS_ITS | Clinical Summary ---
Author Organization [facility] Address [address] [place] [address] Care Team Providers Care Systems Librarian Name Role Phone Andreagideon Jax Neisha JOSÉ Primary Care Provider [phone] Allergies Active AllergyReactionsCriticalityNoted WfanPtwhrapuEaxwoagphyAxdub20/10/2019 Other Reaction(s): hives, Unknown Medications MedicationSigDispense QuantityRefillsLast FilledStart DateEnd DateStatus mirtazapine (Remeron) 15 MG tablet 09/01/2022ctive ibuprofen 600 MG tablet Active hydrOXYzine HCl (Atarax) 25 MG tablet 05/26/2022ctive citalopram (CeleXA) 20 MG tablet Active ASPIRIN 81 PO Active Multiple Vitamin (MULTIVITAMIN ADULT PO) Take 1 capsule by mouth in the morning.Active amLODIPine (Norvasc) 5 MG tablet Take 1 tablet by mouth DailyActive clotrimazole-betamethasone (Lotrisone) cream Active clopidogrel (Plavix) 75 MG tablet Take 75 mg by mouth Daily06/27/2023ctive ezetimibe (Zetia) 10 MG tablet Take 10 mg by mouth Daily06/08/2023ctive rosuvastatin (Crestor) 5 MG tablet Take 5 mg by mouth Daily06/27/2023ctive pravastatin (Pravachol) 40 MG tablet Take 40 mg by mouth at bqfltxy0307/06/2023ctive lisinopril 5 MG tablet Take 5 mg by mouth Daily09/05/2023ctive Brexpiprazole 1 MG tablet 08/02/2023ctive HYDROcodone-acetaminophen ([place]) 5-325 MG tablet 10/10/2023ctive terbinafine (LamISIL AT) 1 % cream Indications:Tinea manuumApply to the affected area on the hand, bid, 30 day supply 42 g ctive albuterol HFA 90 mcg/act inhaler Inhale 2 puffs every 4 (four) hours if rulimg6704/10/2024ctive tiZANidine (Zanaflex) 4 MG capsule Indications:Cervical stenosis of spinal canaltizanidine 4 mg capsule take 1 capsule by mouth twice a day if needed for MUSCLE SPASTICITY 60 capsule 5Active dexAMETHasone (Decadron) 2 MG tablet Indications:Cervical stenosis of spinal bsuxl2po 3 pills po X3 days,2 pills po daily X3 days , then 1 pill po daily X3 days then stop 9 days 18 pills 18 tablet 5ActiveHospital, Clinic, or Other Facility Administered Medication Ordered DoseRouteFrequencyStart DateEnd DateStatus dexAMETHasone sod phos (Decadron) injection 4 mg Indications:Other nerve root and plexus disorders,Acute pain of left shoulder, Acute pain of right shoulder4 nmQBNmed40Ended bupivacaine (Marcaine) 0.5 % injection 5 mg Indications:Other nerve root and plexus disorders,Acute pain of left shoulder, Acute pain of right shoulder5 ojVJKqxz09Ended bupivacaine (Marcaine) 0.5 % injection 5 mg Indications:Other nerve root and plexus disorders,Acute pain of left shoulder, Acute pain of right shoulder5 yeWLIkws70Ended Active Problems ProblemNoted DateDiagnosed DateNerve root and plexus disorder, unspecified 08/05/2024Other nerve root and plexus ddkjyangz76/05/2024AD (coronary artery disease)02/26/2024Senile psbxephotcdb26/18/2024Generalized anxiety disorder 12/12/2023cute effusion of left ear10/16/2023cute left-sided thoracic back pain10/16/2023cute lzxczryiu23/30/2024nxiety and bclcnygucc24/30/2024V bloc first tlvpdo9410/16/2023rain mass10/16/2023urning qrabfmrqz17/30/2024ardiac adebfilwfe47/30/2024roductive cough10/16/2023AD (peripheral artery disease) 10/16/20231436Gzcdixzjvdlana43/30/2024Heart block10/16/2023Essential hypertension 10/16/2023yshidrotic oahvre6110/16/2023History of oral akanyp5410/16/2023izziness 10/16/2023aresthesia of left lower dsscbzyjw24/30/2024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/16/20231233Qfbihdje92/13/2024entral pontine wvtiqkegpoqz70/13/2024igarette nicotine dependence with nicotine-induced pxdyfhae17/27/2024bnormal brain MRI 08/14/20232243Lwzxfkcnocm49/05/2024cute pain of left utvqutjs57/05/2024ervical ofyuzpun67/16/2024adicular pain in left arm04/04/2023ervical radiculopathy 03/01/2023reglaucoma, unspecified, right eye12/29/2022Visual disturbance 12/29/20224505Iymxrcnb97/14/2023Ulnar znzbemhhak81/14/2023ain in left arm12/29/2022 Skin sensation suyrwitpsig34/14/2023ervical paraspinal muscle spasm12/29/2022 Cervical stenosis of spinal canal12/29/2022egeneration of cervical intervertebral disc12/10/2022ge-related nuclear cataract of right eye12/10/2022 Impairment of dnnzjaj0212/10/20227487Nixcllcz98/25/2023Lumbar yloffxtuwpbzz13/25/2023 Magnetic resonance imaging of brain bulbnofw15/25/2023Malignant (primary) neoplasm, nxlkekruxlw82/25/6170Kvvngoip55/25/5988Qdsciou63/25/2023Schwannoma 12/10/20226210Acoargkwnkfw71/25/2023Secondary and unspecified malignant neoplasm of lymph node, yfbocrapnrv34/25/2023Vertigo of central lxckdq9412/10/2022Occipital ipmncvjfl77/25/2023rachial /08/2023Occipital neuralgia of right side11/23/2022Neck pain11/23/2022Lung oghzwso7510/13/2021rimary squamous cell carcinoma of head and neck10/13/2021 Resolved Problems ProblemNoted DateDiagnosed DateResolved DateGlioma of brain/06/2023 Encounters DateTypeDepartmentCare RidzRcabbjfkwsf87/07/2025Telephone [facility] [place] [facility] [address] [place] [phone] Ary Lugo, RT. R 03/24/2025Telephone [facility] [address] [place] [phone] Ary Lugo, RT. R 03/18/2025 11:30 AM EDTClinical Support [facility] [place] [facility] [address] [place] [phone] Oziel Cadena MD Other nerve root and plexus disorders (Primary Dx); Acute pain of left shoulder; Acute pain of right xgeuaibv99/01/2025amboo flowsheet [facility] [address] [place] [address] Oziel Cadena MD 03/18/20259595Ucmjly97/30/4039Wwtvdn50/20/2025 2:30 PM EDTClinical Support [facility] [address] [place] [phone] Oziel Cadena MD Acute pain of right shoulder (Primary Dx); Nerve root and plexus disorder, unspecified; Acute pain of left liunawwx12/20/2025amb flowsheet [facility] [address] [place] [address] Oziel Cadena MD 02/04/20252529Iafjin45/13/3780Hiddkb75/12/2025Telephone [facility] [address] [place] [phone] Mayte Morrison MA 01/08/2025 10:20 AM EDTOffice Visit [facility] [address] [place] [address] Anahi Franco PA Melanocytic nevus of trunk (Primary Dx); Seborrheic keratosis; Inflamed seborrheic keratosis; Actinic keratosis; Capillary angioma; History of SCC (squamous cell carcinoma) of skin01/08/2025amboo flowsheet [facility] [place] [facility] [address] [place] [address] Anahi Franco PA 01/08/20251290Rdyjjg55/23/2025Travelfrom Last 3 Months Immunizations ImmunizationAdministration DatesNext LscPzsv3403/15/2014 Family History Medical HistoryRelationNameCommentsCancerFatherStrokeFatherHypertensionMother RelationNameStatusCommentsFatherDeceasedMotherAlive Social History Tobacco UseTypesPacks/DayYears UsedDateSmoking Tobacco: Every DayCigarettes Smokeless Tobacco: Never Tobacco Cessation:Ready to Q uit: Not Asked; Counseling Given: Not Answered Comments:6-10 cigarettes/day Alcohol UseStandard Drinks/WeekCommentsNot Currently0 (1 standard drink = 0.6 oz pure alcohol)Sex and Gender InformationValueDate RecordedSex Assigned at Male11/22/2022 2:37 PM EDTLegal TxtAwll0508/30/2022 7:14 PM EDTGender IdentityMale 11/22/2022 2:37 PM EDTSexual FxhdkihfpybCaxncjnr53/07/2023 2:37 PM EDT Last Filed Vital Signs Vital SignReadingTime TakenCommentsBlood Iykajewc681/9308 2:41 PM EDT Lbeon23408/20/2025 2:41 PM QTHXglkjqxtken89.5 ??C (97.7 ??F)10/04/2023 11:33 AM EDTRespiratory Mtli846109/10/2023 10:29 AM EDTOxygen Pikxjymhzv63%10/04/2023 11:33 AM EDTInhaled Oxygen Concentration--Spduoc41.1 kg (159 lb)02/04/2025 2:41 PM IGFKccbyt282.7 cm (5' 8 )05/21/2024 2:04 PM ESTBody Mass Index24.18107/22/2023 2:04 PM EST Plan of Treatment DateTypeDepartmentCare Team (Latest Contact Info)Wehqoolaiin86/13/2025 2:00 PM ESTClinical Support [facility] [address] [place] [address] Oziel Cadena MD [address] [facility] [address] [phone] 01/08/2026 8:30 AM EDTOffice Visit [facility] [address] [place] [address] Anahi Franco PA [address] [place] [address] Health MaintenanceDue DateLast DoneCommentsCT Efdctofunagt02/09/1963Colonoscopy 1962Colorectal Cancer Eijeuhuxi92/09/1963FIT-DNA1962FIT1962 FOBT1962 2726Hyivslwkqgrag42/09/1963Influenza Vaccine (#1)2025 Procedures Procedure NamePriorityDate/TimeAssociated DiagnosisCommentsCRYOTHERAPY SKIN NEKUITMmglmib58/24/2025 10:27 AM EDT Inflamed seborrheic keratosis CRYOTHERAPY SKIN WOOWYGItymkam52/24/2025 10:23 AM EDT Actinic keratosis from Last 3 Months Results * Cryotherapy, skin lesion (01/08/2025 10:27 AM EDT) Narrative Authorizing ProviderResult TypeResult StatusRylee [facility] PADERM PROCEDURE ORDERABLESFinal Result * Cryotherapy, skin lesion (01/08/2025 10:23 AM EDT) Narrative Authorizing ProviderResult TypeResult StatusRyleMosaic Life Care at St. Joseph PADERM PROCEDURE ORDERABLESFinal Result from Last 3 [place] [address] [place] [address] Care Teams Team MemberRelationshipSpecialtyStart DateEnd Jax Hastings DO PCP - GeneralFamily Medicine02/13/23
--- OUTSIDE RECORDS SUMMARY | 2025-04-09 10:59 | XMS_ITS | Data Portability ---
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 Thank you for allowing me to par ticipate in their care.Gunnar doavvvvgr51/11/2023 12:16: yo M hx of neck pain mainly axial in nature and associated occipital POWERS presents today for further E/M. Worse pain in the neck as he has previously had occipital nerve blocks with great relief. Weare suspicious for cervicogenic headaches. He has tried mutliple rounds of PT/HEP for the neck, chiropratics, otc medicines. s/p second round of cervical mbb's. RFA provided relief of the axial neck pain; however, now he is having pain in the arms radiating from the neck specifically. At this time,will trial a C6 and C7 SNRB with [...] voiced their understanding, was agreeable, and recognized thatthese medications are being recommended for the treatment of their chronic pain condition and not amajor mood disorder or mental health issue. They [...] effects of this medication both on the valdez tral nervous system and overall respiratory system; particularly in the setting of other sedating medications. The patient was advised, and it was recommended that they do not co-administer this medication with other medications. We also discussed the risk of sedation and fall precautions, and to avoid driving while administering this medication or other important decision making. And that shouldthey have a side effect they contact our [...] accordingly. Thank you for allowing me to par debbieipate in their care.Kevin uboawmtvb16/13/2023 13:32:49 Plan of Treatment Reminders Order DateSubmit DateProviderLast Modified ByOrganization DetailsLast Modified TimeDetailsAppointmentsNone recorded.LabNone recorded.ReferralNone recorded. ProceduresNone recorded.SurgeriesSelective Nerve Root Block (SURG)03/30/2023 03/30/20237343mxbxnouypl5Wsh nqahjucfu04/13/2024 13:54:41radiofrequency ablation (SURG)/8346vsdthbmvsd2Htw sqqvuyrkd79/08/2024 09:39:41 radiofrequency ablation (SURG)/9062rnvmanrlwn1Ici available 01/24/2024 09:39:41ImagingNone recorded.Medication Ordersbaclofen 10 mg tablet [id number], [address] [facility], [place], [place], [id number], 03/30/2023 13:32:36 Patient TargetsNo targets recorded. Patient InstructionsNo instructions recorded. Reason for Referral None Reported. Problems No Known Problems Procedures Surgical History Date Name Laterality Status Provider Name and Address Organization Details Recorded Time 03/09/2023 RFA - Cervical/Thoracic Alisha Milligan MD [address] [place], [address], [facility]03/09/2023 14:03:53002/09/2023RFA - Cervical/ThoraciccompletValerie Milligan MD [address] [place], [address], [facility] 02/09/2023 09:41:5003cervical mbb b/l c2-l9wqtkyttvkCvzch [facility] - [facility] 12/28/2022 08:24:54 3cervical mbb b/l c2-m2gbxryoddmFbqqValerie Milligan MD [address] [place], [address], [facility] 11/10/2022 10:25:12 Imaging Results None recorded. Procedure Notes None recorded. Medical Equipment None Reported. Allergies Allergen ID Allergen Name Allergen Category Reaction Reaction Severity Criticality Documentation Date Start Date Code Code System Note Provider Name and Address Organization Details Recorded Time 8297 Keflex medication Not available Not available Not geioozysd54/12/[id number] [facility]10/27/2022 13:14:32 Medications Name Sig Start Date Stop Date Status Note LastModified by Organization Details LastModified Time cyclobenzaprine 10 mg tablet take 1 tabl et orally three times a day if needed for muscle spasm activeNot AvailableNot AvailableNot Availableprednisone 10 mg tablettake 6 tablets orally daily with food or milkactiveNot AvailableNot AvailableNot Availabledoxycycline hyclate 100 mg capsuleTAKE ONE CAPSULE BY MOUTH IN THE MORNING THEN TAKE ONE CAPSULE BY... (REFER TO PRESCRIPTION NOTES).activeNot AvailableNot AvailableNot Availableatorvastatin 10 mg tablettake 1 tablet by mouth once dailyactiveNot AvailableNot AvailableNot Availableazithromycin 250 mg tablettake 2 tablets by mouth TODAY then take 1 tablet DAILY FOR 4 DAYSactiveNot AvailableNot AvailableNot Availabletizanidine 4 mg tablettake 1 tablet by mouth at bedtime if neededactiveNot AvailableNot AvailableNot Availableacetazolamide 125 mg tablettake 1 tablet by mouth twice a dayactiveNot AvailableNot Available Not Availablesumatriptan 100 mg tabletPLEASE SEE ATTACHED FOR DETAILED DIRECTIONSactiveNot AvailableNot AvailableNot Availableprednisone 20 mg tablet take 1 tablet by mouth every morning and at bedtime for 5 daysactiveNot AvailableNot AvailableNot Availableacetazolamide 250 mg tablettake 1 tablet by mouth every morning and AFTERNOON and 2 at bedtime as directedactiveNot AvailableNot AvailableNot Availabletopiramate 25 mg tabletTAKE 1 TAB BY MOUTH AT BEDTIME FOR WEEK, THEN 2 TABS X 1 WEEK, 3 TABS X 1 WEEK, THEN SWITCH TO 100MG activeNot AvailableNot AvailableNot Availableamlodipine 5 mg tablettake 1 tablet by mouth once dailyactiveNot AvailableNot AvailableNot Availableacyclovir 400 mg tabletTAKE 1 TABLET BY MOUTH IN THE MORNING, EVENING, AND AT BEDTIMEactiveNot AvailableNot AvailableNot Availablesulfamethoxazole 800 mg-trimethoprim 160 mg tabletTAKE 1 TABLET BY MOUTH IN THE MORNING AND AT BEDTIME FOR 7 DAYSactiveNot AvailableNot AvailableNot Ewlbglyoiccxoheeakz-chcapbqrktozc-cjdqxqto 50 mg-325 mg-40 mg tablettake 1 tablet by mouth every 4 to 6 hours if needed for headache or migraines for 30 DAYSactiveNot AvailableNot AvailableNot Availableoxycodone- acetaminophen 5 mg-325 mg tablettake 1-2 tablets by mouth every 6 hours if needed for painactiveNot AvailableNot AvailableNot Availablecitalopram 20 mg tablettake 1 tablet by mouth once dailyactiveNot AvailableNot AvailableNot Availablebaclofen 10 mg tablettake 1 tablet by mouth three times a day if needed for 15 DAYSactiveNot AvailableNot AvailableNot Availabledexamethasone 2 mg tablettake 3 tablets by mouth daily for 3 days then 2 tablets daily for... (REFER TO PRESCRIPTION NOTES).activeNot AvailableNot AvailableNot Available clotrimazole-betamethasone 1 %-0.05 % topical creamactiveNot AvailableNot AvailableNot Availableindomethacin 25 mg capsuletake 1 capsule by mouth every morning and every evening with mealsactiveNot AvailableNot AvailableNot Availablemontelukast 10 mg tablettake 1 tablet by mouth at bedtimeactiveNot AvailableNot AvailableNot Availablehydroxyzine HCl 25 mg tablettake 1 to 2 tablets by mouth at bedtime if neededactiveNot AvailableNot AvailableNot Availablemirtazapine 15 mg tablettake 1/2 tablet by mouth at bedtimeactiveNot AvailableNot AvailableNot Availableibuprofen 600 mg tablettake 1 tablet by mouth every 8 hours NEEDED FOR PAINactiveNot AvailableNot AvailableNot Available methylprednisolone 4 mg tablets in a dose packuse as directed FOLLOW DIRECTIONS ON BACK OF FOIL PACKactiveNot AvailableNot AvailableNot Availableindomethacin ER 75 mg capsule,extended releasetake 1 capsule by mouth once daily with foodactive Not AvailableNot AvailableNot Availabletopiramate 100 mg tabletTAKE 1 TABLET BY MOUTH EVERY DAYactiveNot AvailableNot AvailableNot Availableamoxicillin 875 mg- potassium clavulanate 125 mg tablettake 1 tablet by mouth twice a dayactiveNot AvailableNot AvailableNot Availableolmesartan 20 mg tablettake 1 tablet by mouth once dailyactiveNot AvailableNot AvailableNot Availabledivalproex ER 250 mg tablet,extended release 24 hrtake 1 tablet by mouth once daily 90activeNot AvailableNot AvailableNot Availablezonisamide 25 mg capsuletake 1 capsule by mouth at bedtime for 1 week then INCREASE to 1 ... (REFER TO PRESCRIPTION NOTES).activeNot AvailableNot AvailableNot Availableduloxetine 20 mg capsule,delayed releasetake 1 capsule by mouth twice a dayactiveNot AvailableNot AvailableNot Availabletizanidine 4 mg capsuleTAKE ONE CAPSULE BY MOUTH TWICE DAILY IF NEEDED FOR MUSCLE SPASTICITYactiveNot AvailableNot AvailableNot AvailableNurtec ODT 75 mg disintegrating tabletDISSOLVE 1 TABLET ON THE TONGUE EVERY OTHER DAYactiveNot AvailableNot AvailableNot Available Vitals None Recorded Social History None recorded. Functional Status None recorded. Mental Status None recorded. Family History Relationship Description Onset Age of this Age Resolved Age Notes LastModified by Organization Details LastModified Time Father No current problems or disabilit y desparazNot ztfempyew86/12/2023 13:14:47MotherNo current problems or disability desparazNot njpdveycw74/12/2023 13:14:47 Medical History No medical history recorded. Past Encounters Encounter ID Performer Location Encounter Start Date Encounter Closed Date Diagnosis/Indication Diagnosis SNOMED-CT Code Diagnosis ICD10 Code Diagnosis IMO Codes Diagnosis Note [id number] MD Zoe [facility] [address] [place] [address] 10/27/2022 12:26:03 10/27/2022 13:33:12 Multiple-level cervical spondylosis without myelopathy 537341189 M47.812 Cervico-occipital reckjbwqh88217367U79.81 Lumbosacral oxznwdmagbivz1830163U38.17 [id number] Milligan [facility] [address] [place] [address] 11/10/2022 10:15:1906 17:00:[id number] Brooks/[facility] [address] [facility] [address] 12/15/2022 10:45:15012/15/2022 11:26:50Multiple-level cervical spondylosis without djwngfeynk413605542V90.812 Cervico-occipital vnqukmthm97772407R82.81 Lumbosacral yuqfdngkqwukg7116159O42.17 [id number] Milligan [facility] [place] [id number] [place] [address] 12/28/2022 07:48: 10:59:[id number] Brooks/[facility] [address] [facility] [place] [address] 01/26/2023 11:48:0601/26/2023 12:22:24Multiple-level cervical spondylosis without lmfqqwdeef997812330Z58.812 Cervico-occipital sqwtvhlnw29192596T88.81 Lumbosacral lqljaaffwblnm5589028K66.17 [id number] Milligan [facility] [address] [address] 02/09/2023 09:25:5608 14:04:8504621Pxtwbereket Milligan [facility] [address] [place] [address] 03/09/2023 08:11:4709 14:05:[id number] Morro Martínez/[facility] [address] [place] [address] 03/30/2023 13:19:0803/30/2023 13:43:38Multiple-level cervical spondylosis without mrpictimzh697674536D05.812 Cervico-occipital yluxfwkds31054455L48.81 Lumbosacral xgnmbdxqwegoe9933264Z25.17 Cervical evsftnfteimvf16081449V01.12 Muscle uuie10412941Q56.10 Health Concerns Section Related Observation LastModified by Organization Detai ls LastModified Time None Recorded Concern Status LastModified by Organization Details LastModified Time None Recorded Advance Directives Directive None Recorded Payers Insurance Date Sequence Insurance Name Policy Number Policy Gregorio Covered Member ID Gregorio Member ID Guarantor Name 03/29/[address] [facility] [id number] [facility] [id number] [id number] Hall Notes Date Note Type Note Provider Name and Address Orga nization Details Recorded Time 01/26/2023 text/html Pain Management HeadacheReported by PatientHPIFor location, [...] reportsatraumatic,prior back problems, andused medications for back pain . For alleviating factors, patient reportsrestandrelieved by changing position. For aggravating factors, patient reportsmovement/positioningandflexing back. For associated symptoms, patient reportsno bowel/bladder symptoms. For prior imaging, patient reportsnone. Neck PainReported by PatientHPIFor location, patient reportsbilateral,posterior, andlateral. For quality, patient reportsstabbing,throbbing,aching, andradiates to bilateral shoulder. For severity, patient reportssevere,pain level 8/10, and worst pain 8/10. For timing, patient reportschronic. For context, patient reportsoveruseandatraumatic. For alleviating factors, patient reportsheat,ice, rest,exercise, andstretching. For aggravating factors, patient reportstwisting, rom, andexercise. For neurological complaints, patient reportsnone. For treatment, patient reportsnsaidsandsteroids. For prior imaging, patient reports x-rayandmri.Pardeep Milligan MD [address] [place] [address], [address], [facility] - [facility]01/26/2023 12:16:451text/htmlPain Management HeadacheReported by PatientHPIFor location, patient reportsat [...] reportsatraumatic,prior back problems, andused medications for back pain . For alleviating factors, patient reportsrestandrelieved by changing position. For aggravating factors, patient reportsmovement/positioningandflexing back. For associated symptoms, patient reportsno bowel/bladder symptoms. For prior imaging, patient reportsnone. Neck PainReported by PatientHPIFor location, patient reportsbilateral,posterior, andlateral. For quality, patient reportsstabbing,throbbing,aching, andradiates to bilateral 5th digit. For severity, patient reportssevere,pain level 8/10, and worst pain 8/10. For timing, patient reportschronic. For context, patient reportsoveruseandatraumatic. For alleviating factors, patient reportsheat,ice, rest,exercise, andstretching. For aggravating factors, patient reportstwisting, rom, andexercise. For neurological complaints, patient reportsnone. For treatment, patient reportsnsaidsandsteroids. For prior imaging, patient reports x-rayandmri.Jason Prieto [place], [place] - [facility]03/30/2023 13:33:12
--- OUTSIDE RECORDS SUMMARY | 2025-04-09 11:05 | XMS_ITS | CCD ---
Author Organization [facility] Care Team Providers Care [place] Management Specialist Name Role Phone Griselda Hastings Primary Care Provider Griselda Hastings Attending Provider [phone] Griselda Hastings Unavailable Unavailable Unavailable Griselda Hastings Unavailable Sheng Schneider Unavailable Griselda Hastings Primary Care Provider Griselda Hastings Unavailable DO Griselda Hastings Primary Care Provider MD Oziel Cadena Attending Provider BAILEY Gaytan Emergency Provider [phone] MD Loi Wong Jr Emergency Provider Unavailable Unavailable DO Griselda Hastings Primary Care Provider [phone] MD Oziel Cadena Attending Provider [phone] BAILEY Gaytan Emergency Provider MD Loi Wong Jr Emergency Provider BAILEY Mota Attending Provider BAILEY Mota Attending Provider DO Griselda Hastings Primary Care Provider MD Oziel Cadena Attending Provider Trish Carney Unavailable Griselda Hastings Primary Care Provider Darling Griselda Wright Unavailable Tammi NORRIS, Oziel Ruiz Unavailable [phone] FLORES CAT Attending Unavailable FLORES CAT Admitting [...] Emergency Provider Darling, DO Camara Attending Provider [phone] Lilliam Cason Unavailable Andreas, DO Griselda Primary Care Provider [phone] BAILEY Gaytan Emergency Provider [phone] quentin, DO Rohit Mullins Emergency Provider Darling, DO Griselda Attending Provider MD Lilliam Cason Attending Provider [phone] Ruddy Harvey Unavailable BAILEY Mota Attending Provider MD Ruddy Harvey Attending Provider Kuns, DO Griselda Primary Care Provider [phone] Kuns DO, Griselda R Primary Care Provider Kuns, DO Griselda Primary Care Provider JOSE CRUZ KHAN Attending Unavailable JOSE CRUZ KHAN Referring Unavailable KUNS, GRISELDA R Primary Care Unavailable JOSE CRUZ KHAN Attending Unavailable JOSE CRUZ KHAN Referring Unavailable KUNS, GRISELDA R Primary Care Unavailable Kuns, DO Griselda Primary Care Provider [phone] MD Ruddy Harvey Attending Provider Darling DOGriselda R Primary Care Provider Andreas DO, Griselda R Primary Care Provider Stiven NORRIS, Helder Jarrett Unavailable AndreasDO Camara Attending Provider [phone] Griselda Hastings Primary Care Provider Oziel Cadena MD Unavailable Andreas DO, Griselda R Primary Care Provider Milks PA-C, Solomon A Unavailable Milks PA-C, Solomon A Unavailable [phone] Darling Griselda JOSÉ R Primary Care Provider Griselda Hastings DO Primary Care Provider [phone] Milks PA-C, Solomon A Attending Provider Andreas Griselda JOSÉ Primary Care Provider Milks PA-C, Solomon A Attending Provider Wes NORRIS, Ruddy Joseph Attending Provider Humberto NORRIS, Daisy Driver Emergency Provider [phone] Griselda Hastings DO R Primary Care Provider [phone] Griselda Hastings DO Primary Care Provider Manisha Negron APRN Emergency Provider Andreas DOGriselda Other Provider Manisha Negron APRN Attending Provider [phone] Milks PA-C, Solomon Nae Attending Provider Griselda Hastings DO R Primary Care Provider [phone] Stiven NORRIS, Helder Jarrett Unavailable Milks PA-C, Solomon A Unavailable [phone] SOTAK, SHIMON K Referring Unavailable KUNS, GRISELDA [...] Unavailable Conchita NORRIS, Nathanael Attending Provider Kuns , Griselda Attending Provider [phone] HARRIS, XIAOFEI Referring Unavailable KUNS, GRISELDA R [...] Unavailable Kuns DO, Griselda Primary Care Provider [phone] Lilliam Cason MD Attending Provider Danya CERVANTES, Elizabeth Mullins Attending Provider [phone] Conchita NORRIS, Nathanael Other Provider Solomon Montez APRN Attending Provider Kuns DO, Griselda Attending Provider Kuns DO, Griselda Primary Care Provider [phone] Solomon Montez APRN Attending Provider Roxy NORRIS, Andri Attending Provider Sofia Arias DO Attending Provider Kuns DO, Griselda Primary Care Provider Kuns DO, Griselda Attending Provider Manisha Negron N Attending Unavailable OliviaeManisha N Admitting Unavailable Kuns, Griselda Primary Care Unavailable Daisy Paul Attending Unavailable Daisy Paul Admitting Unavailable Kuns, Griselda Primary Care Unavailable SaffleManisha N Attending Unavailable SaffleManisha N Admitting Unavailable Kuns, Griselda Consulting Unavailable Kuns, Griselda Primary Care Unavailable LangenbergRuddy Attending Unavailabl e Langenberg, Ruddy Joseph Admitting Unavailabl e Kuns, Griselda Primary Care Unavailable Kuns, Griselda Primary Care Unavailable MilksSolomon Attending Unavailable MilksSolomon Admitting Unavailable Kuns, Griselda Admitting Unavailable Kuns, Griselda Attending Unavailable Kuns, Griselda Primary Care Unavailable Kuns, Griselda Admitting Unavailable Kuns, Griselda Attending Unavailable Kuns, Griselda Primary Care Unavailable MilksSolomon A Attending Unavailable MilksSolomon Admitting Unavailable Kuns, Griselda Primary Care Unavailable Asaad, Imad Admitting Unavailable Asaad, Imad Attending Unavailable Kuns, Griselda Primary Care Unavailable OZIEL CADENA Attending Unavailable OZIEL CADENA Attending Unavailable OZIEL CADENA Attending Unavailable OZIEL CADENA Attending Unavailable DORETHA HARRIS Unavailable ANAHI FRANCO Attending Unavailable OZIEL CADENA Attending Unavailable CADENAOZIEL ARNOLD Attending Unavailable OZIEL CADENA W Attending Unavailable OZIEL CADENA Attending Unavailable Giedraitis , Andrius Vytautscott Attending Unavailable Giedraitis , Andrius Vytautas Attending Unavailable Gieditis , Andrius Vytautas Attending Unavailable Inocencioitis , Andrius Vytautas Attending Unavailable Roxy NORRIS, Andrius Vytautas Attending Unavailable Giedfrances NORRIS, Andrius Vytautas Attending Unavailable Giedraitis , Andrius Vytautas Attending Unavailable DEBRA FIGUEROA Referring Unavailable DEBRA FIGUEROA Attending Unavailable Unavailable Unavailable Unavailable Allergies Allergy ClassificationReported Allergen(s)Allergy TypeDate of OnsetReaction(s) FacilityCephalosporins (antibiotic) (1 source)CephalexinDrug [id number] Healthcare (20 sources)Cephalexin; Translations: [CEPHALEXIN]Drug Ifpzbvf76-32-2796[facility] (20 sources)Cephalexin; Translations: [Keflex]Drug AllergyFlorida [facility] Other (1 source)Cephalexin; Translations: [Keflex]Drug AllergyHiVencor Hospital [facility] (17 sources)Keflet; Translations: [KEFLET]Propensity to adverse reactions 98-51-2739ZcwahWwilhdeajcThe [facility] (4 sources)varenicline; Translations: [varenicline]Drug Msbziay14-26-2865 [facility] (1 source)ALLERGIES NOT ON FILE; Translations: [ALLERGIES NOT ON FILE]Propensity to adverse reactions (disorder)[facility] NEGATED: Highlighted row has been ruled out! (1 source)natural latex rubber; Translations: [LATEX, NATURAL RUBBER]Drug allergy (disorder)[facility] EnterpriseNEGATED: Highlighted row has been ruled out! (1 source)No IV Contrast Allergy.; Translations: [IV Dye, Iodine Containing]Drug allergy (disorder)[facility] Medications Current Medications MedicationDrug Class(es)DatesSig (Normalized)Sig (Original)acetaminophen 325 mg oral tablet (1 source)Start: 22-79-7860phpe 1 tablet by mouth every six yyckx086 mg, oral, Every 6 hours, First dose on Sun04/09/24 at 1915, Phase II/On Unit, If ordered PRN for pain, nurse is permitted to administer this medication for higher pain scores based on patient preference? Yesacetaminophen 325 mg / HYDROcodone bitartrate 7.5 mg oral tablet (20 sources)Opioid AgonistStart: 56-22-2337tlon 1 tablet by mouth twice daily as needed for painHydrocodone-Acetaminophen 7.5-325 mg tablet Active 1 TAB PO Twice daily as needed for pain October 06, 2024 12:00am Complies with drug therapy Start: 04-01-2024 End: 37-55-9550uiov 1 tablet by mouth twice dailyHydrocodone-Acetaminophen 7.5- 300 mg tablet Discontinued 1 TAB PO Twice daily April 01, 2024 12:00am April 28, 2024 10:44amStart: 97-49-5154WUUQPhgrwoz-acetaminophen ([place]) 5- 325 MG tablet 10/10/2023 ActiveStart: 09-05-2023 End: 66-84-4049zktu 1 tablet by mouth every eight hours as neededHydrocodone- Acetaminophen 5-325 mg tablet Discontinued TAB PO Every 8 hours as needed September 05, 2023 12:00am April 01, 2024 11:01amStart: 09-31-6203kgap 1 tablet by mouth once daily as needed for painHYDROcodone-acetaminophen ([place]) 5-325 MG tablet take 1 tablet orally daily NEEDED FOR PAIN MUST LAST 30 DAYS 10/10/2023 ActiveStart: 12-10-2017 End: 41-71-3898ecgg 1 tablet by mouth every four hoursHydrocodone-Acetaminophen ([place]) 5-325 mg tablet Discontinued 1 TAB PO Q4H December 10, 2017 April 29, 2018 3:12pm End: 18-57-0206bnlc 1.5 tablets by mouth twice daily as needed for pain HYDROcodone-acetaminophen ([place]) 5-325 mg tablet Take 1.5 tablets by mouth 2 times a day as neededfor severe pain (7 - 10). 04/10/2024 Discontinued (Stop Taking at Discharge)acetaminophen 325 mg / oxyCODONE hydrochloride 5 mg oral tablet (20 sources)Opioid AgonistStart: 04-30-2024 End: 45-04-0288snhy 1 tablet by mouth every six hours for painoxyCODONE- acetaminophen (Percocet) 5-325 mg tablet Indications: Acute postoperative pain Take 1 tablet by mouth every 6 hours if needed for severe pain (7 - 10) (pain) for up to 7 days. 28 tablet 04/30/2024 05/07/2024 ActiveStart: 04-28-2024 End: 35-98-9922ktbi 1 tablet by mouth every eight hours as neededOxycodone- Acetaminophen (Percocet) 5-325 mg tablet Discontinued 1 TAB PO Every 8 hours as needed April 28, 2024 1:00am September 20, 2024 11:05amStart: 04-10-2024 End: 34-37-5439spcr 1 tablet by mouth every six hours for painoxyCODONE- acetaminophen (Percocet) 5-325 mg tablet Indications: Cervical radiculopathy Take 1 tablet by mouth every 6 hours if needed for severe pain (7 - 10) (pain) for up to 7 days. 28 tablet 04/10/2024 04/17/2024 ActiveStart: 04-17-2022 End: 62-13-9518wzxu 1 tablet by mouth every six hours as needed for pain Oxycodone-Acetaminophen (Percocet) 5-325 mg tablet Discontinued 1 - 2 TAB PO Every 6 hours as needed for pain 20 April 17, 2022 July 17, 2022 9:01am1 ml alirocumab 75 mg/ml auto-injector (4 sources)PCSK9 InhibitorStart: 64-96-8141fsapjp 75 mg by subcutaneous injection every other weekAlirocumab (Praluent Pen) 75 mg/mL pen injector Active 75 MG SUBCUT Q14D 7 November 03, 2024 12:00am Complies with drug therapy Alirocumab (Praluent Pen) 75 mg/mL pen injector (3 sources)Start: 95-78-1101ycokpn 75 mg by subcutaneous injection every other weekAlirocumab (Praluent Pen) 75 mg/mL pen injector Active 75 MG SUBCUT Q14D 7 November 03, 2024 12:00amaspirin 81 mg delayed release oral tablet (20 sources)Platelet Aggregation Inhibitor, Nonsteroidal Anti-inflammatory Drug Start: 36-07-1851cqmf 1 tablet by mouth once dailyaspirin 81 mg EC tablet Indications: Cervical radiculopathy Take 1 tablet (81 mg) by mouth once daily. Do not fill before April 14, 2024. 04/14/2024 ActiveStart: 62-80-3031thth 1 tablet by mouth once dailyaspirin 81 mg EC tablet Indications: Cervical radiculopathy Take 1 tablet (81 mg) by mouth once daily. Do not fill before April 14, 2024. 04/14/2024 ActiveStart: 08-02-2023 End: 74-82-6152ybrf 1 tablet by mouth once dailyAspirin 81 mg tablet,delayed release (DR/EC) Active 81 MG PO Daily August 02, 2023 1:00am Complies with drug therapyStart: 07-17-2022 End: 13-66-9153lbwr 1 capsule by mouth once dailyAspirin 81 mg Capsule Discontinued 81 MG PO Daily July 17, 2022 1:00am August 02, 2023 1:45pm ASPIRIN 81 PO ActiveASPIRIN 81 PO Aspir-81 ActiveASPIRIN 81 PO Aspir-81 0 Active take 1 tablet by mouth every twenty-four hoursAspirin Adult Low Dose 81 MG 1 tablet Orally Once a day ActiveAspirin 81 MG TABS Quantity: 0 Refills: 0 Ordered: 03-Nov-2021 DO Activetake 1 tablet by mouth once dailyAspirin 81 MG 1 tablet Orally Once a day Activeatogepant 60 MG Oral Tablet [Qulipta] (5 sources)take 1 tablet by mouth every twenty-four hoursQulipta 60 MG 1 tablet Orally Once a day Activebaclofen 10 mg oral tablet (2 sources)gamma-Aminobutyric Acid-ergic AgonistStart: 80-87-6663dbaw 1 tablet by mouth three times daily as neededbaclofen (Lioresal) 10 MG tablet Take 1 tablet 3 times a day by oral route as needed for 15 days. Active bisacodyl 5 mg delayed release oral tablet (1 source)Stimulant LaxativeStart: 94-49-5669sohk 1 tablet by mouth every twenty-four hours as neededbusPIRone hydrochloride 10 mg oral tablet (20 sources)Start: 28-03-9217tfqz 5 mg by mouth twice daily5 mg, oral, 2 times daily, First dose on Sun04/09/24 at 2100, Phase II/On UnitStart: 01-31-2024 End: 19-79-1548Tsnzvdqmd 5 mg tablet Discontinued 5 MG PO January 31, 2024 12:00am July 03, 2024 10:50amStart: 12-31-2023 End: 07-92-8291mugh 1 tablet by mouth once daily in the morning, then take 1 tablet by mouth once daily in the evening, then take 1 tablet by mouth at bedtimebusPIRone (Buspar) 5 MG tablet Indications: Generalized anxiety disorder TAKE 1 TABLET BY MOUTH EVERY MORNING , TAKE ONE TABLET BY MOUTH EVERY EVENING , AND 1 TABLET BEFORE BEDTIME 90 tablet 3 12/31/2023 01/08/2025 Discontinued calcium chloride 0.0014 meq/ml / potassium chloride 0.004 meq/ml / sodium chloride 0.103 meq/ml / sodium lactate 0.028 meq/ml injectable solution (2 sources)Start: 04-09-2024 End: 57-72-5876Widzo: 04-09-2024 End: 02-84-3492newy 20 mL intravenously every hour20 mL/hr, intravenous, Continuous, Starting on Sun04/09/24 at 1215, Preprocedurechlorhexidine gluconate 1.2 mg/ml mouthwash (10 sources)Start: 02-11-2024 End: 76-88-0346lsowamkzmkhgh (Hibiclens) 4 % external liquid Indications: Cervical radiculopathy , Senile osteoporosis Use as directed daily preoperatively 473 mL 02/11/2024 04/10/2024 Discontinued (Stop Taking at D ischarge)Start: 02-11-2024 End: 17-66-3484lpwsqvuaryqmy (Peridex) 0.12 % solution Indications: Cervical radiculopathy , Senile osteoporosis Swish and spit with 15ml of solution the night before and morning of surgery. Do not swallow. 15 mL 02/11/2024 04/10/2024 Discontinued (Stop Taking at Discharge)citalopram 20 mg oral tablet (20 sources)Serotonin Reuptake InhibitorStart: 02-61-4616dxww 1 tablet by mouth once dailyCitalopram 20 mg tablet Active 20 MG PO Daily February 19, 2025 11:51am Complies with drug therapyStart: 12-03-2023 End: 60-46-8737wrna 1 tablet by mouth once dailyCitalopram (Celexa) 10 mg tablet Discontinued 10 MG PO Daily April 01, 2024 11:02am September 29, 2024 3:11pmStart: 12-26-2021 End: 86-42-6701aebp 1 tablet by mouth once dailyCitalopram 20 mg tablet Discontinued 20 MG PO Daily August 02, 2023 1:00am December 03, 2023 10:48am FreeTextSi tablet Orally Once a day; Note: Source Status: Continue; Provider: Darling Camara RStart: 23-24-0369bvuh 1 tablet by mouth once daily citalopram (CELEXA) 40 mg tablet Take 40 mg by mouth once daily. 0 10/22/2018 ActiveStart: 12-10-2017 End: 46-53-8403Dtkochrcss 40 mg tablet Discontinued 20 MG PO Daily December 10, 2017 12:00am April 29, 2018 3:12pmStart: 12-10-2017 End: 13-08-9433fmqd 20 mg by mouth once dailyCitalopram Discontinued 20 MG PO Daily December 10, 2017 12:00am April 29, 2018 3:12pmtake 0.5 tablet by mouth once dailycitalopram (CeleXA) 20 mg tablet Take 0.5 tablets (10 mg) by mouth once daily. ActiveComment on above:Take 40 mg by mouth once daily.clopidogrel 75 mg oral tablet (20 sources)P2Y12 Platelet InhibitorStart: 43-15-1495bejm 1 tablet by mouth once dailyClopidogrel 75 mg tablet Active 75 MG PO Daily February 19, 2025 12:00am Complies with drug therapyStart: 10-18-2528sdtodpjouwv (Plavix) 75 mg tablet Indications: Cervical radiculopathy Take 1 tablet (75 mg) by mouth once daily. Do not fill before April 23, 2024. 04/23/2024 ActiveStart: 04-23-2024 clopidogrel (Plavix) 75 mg tablet Indications: Cervical radiculopathy Take 1 tablet (75 mg) by mouth once daily. Do not fill before April 23, 2024. 04/23/2024 ActiveStart: 04-14-2024 End: 88-26-4458xltu 1 tablet by mouth once dailyclopidogrel (Plavix) 75 mg tablet Indications: Cervical radiculopathy Take 1 tablet (75 mg) by mouth once daily. Do not fill before April 14, 2024. 04/14/2024 04/10/2024 Discontinued Start: 05-07-2023 End: 37-48-6226qswd 1 tablet by mouth once dailyClopidogrel (Plavix) 75 mg tablet Discontinued 75 MG PO Daily August 02, 2023 1:00am January 23, 2024 2:33pm FreeTextSi tablet Orally Once a day; Note: Source Status: Taking; Provider: Darling Camara ( )cyclobenzaprine hydrochloride 10 mg oral tablet (20 sources)Muscle RelaxantStart: 56-08-3253pfnd 1 tablet by mouth three times daily as needed for muscle spasmscyclobenzaprine (Flexeril) 10 mg tablet Indications: muscle spasm Take 1 tablet (10 mg) by mouth 3 times a day as needed for muscle spasms for up to 7 days. 21 tablet 06/03/2024 ActiveStart: 04-30-2024 End: 21-03-6202eqvx 1 tablet by mouth every eight hours for muscle spasms cyclobenzaprine (Flexeril) 10 mg tablet Indications: Muscle spasms of neck Take 1 tablet (10 mg) bymouth every 8 hours if needed for muscle spasms. 90 tablet 04/30/2024 ActiveStart: 04-09-2024 End: 53-38-7044hriy 1 tablet by mouth three times daily as needed for muscle spasmscyclobenzaprine (Flexeril) 10 mg tablet Indications: muscle spasm Take 1 tablet (10 mg) by mouth 3 times a day as needed for muscle spasms for up to 7 days. 21 tablet 04/17/2024 ActiveStart: 03-21-2023 End: 72-61-1650vnzx 1 tablet by mouth three times daily as needed for muscle spasmsCyclobenzaprine 10 mg tablet Discontinued 10 MG PO Three times daily as needed for Muscle Spasm March 21, 2023 12:00am May 07, 2023 9:22am 0.4 ml enoxaparin sodium 100 mg/ml prefilled syringe (1 source)Low Molecular Weight HeparinStart: 85-53-0516lgeiwx 40 mg by subcutaneous injection every twenty-four hours40 mg, subcutaneous, Every 24 hours, First dose on Lynda 04/10/24 at 0000, Phase II/On Unit, Indications: deep vein thrombosis prevention1 ml galcanezumab-gnlm 120 mg/ml auto-injector (7 sources)Emgality 120 MG/ML as directed Subcutaneous Activeglucagon (rdna) 1 mg injection (2 sources)Antihypoglycemic AgentStart: ml glucose 500 mg/ml prefilled syringe (2 sources)Start: ml HYDROmorphone hydrochloride 0.2 mg/ml prefilled syringe (3 sources)Opioid AgonistStart: 53-28-1155keoq 0.2 mg intravenously every four hours as neededStart: 04-09-2024 End: .5 mg, intravenous, Every 5 min PRN, pain severe (7-10), first line, Starting on Sun04/09/24 at 1649, Recovery (only), Max total of 4 mg regardless of dose.Start: 04-09-2024 End: .2 mg, intravenous, Every 5 min PRN, pain moderate (4-6), first line, Starting on Sun04/09/24 at 1649, Recovery (only), Max total of 4 mg regardless of dose.iv contrast (will be provided with radiology test) (20 sources)Start: 11-02-2023 End: 68-06-2989cx contrast (will be provided with radiology test) 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 Discontinue saline lockpost exam. If Pt. has a central line or IVAD, may access for administration according to line specific nursing protocol. Once exam is complete flush line and de-access according to line specific nursing protocol in the CT contrast administration guidelines link. 1 Each 0 11/02/2023 11/03/2023 ActiveStart: 11-02-2023 End: 73-46-2610rxinda 1 dose intravenously once, then inject 1 dose intravenously onceiv contrast (will be provided with radiology test) [...] guidelines link. 1 Each 0 11/02/2023 11/02/2023 ExpiredStart: 09-20-2022 End: 42-13-1507dissmk 1 dose intravenously onceiv contrast (will be provided with radiology test) [...] guidelines link 1 Each 0 09/20/2022 09/21/2022 ActiveStart: 10-30-2021 End: 42-70-1621bqbmew 1 dose intravenously once, then inject 1 dose intravenously onceiv contrast (will be provided with radiology test) Inject 1 Each intravenously one time only for [address] Neck W IVCON No IV access, insert saline lock prior to the sedation, infusion, injection for imaging exam. Discontinue saline lock post exam. If Pt. has a central line or IVAD, may access foradministration according to line specific nursing protocol. Once exam is complete flush line and de-access according to line specific nursing protocol in the CT contrast administration guidelines link. 1 Each 0 10/30/2021 10/30/2021 ActiveStart: 10-30-2021 End: 15-37-7122si contrast (will be provided with radiology test) CT Chest W - Inject, intravenously, once for 1 dose.No IV access, insert saline lock prior to the beginning of sedation, infusion, injection of imaging exam. Discontinue saline lock post exam. If Pt. has a central line or IVAD, may access for adminis tration according to line specific nursing protocol. Once exam is complete flush line and de-accessaccording to line specific nursing protocol in the CT contrast administration guidelines link. 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 Discontinue saline lock post exam. If Pt. has a central line or IVAD, may access for administrationaccording to line specific nursing protocol. Once exam is complete flush line and de-access according to line specific nursing protocol in the CT contrast administration guidelines link. 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 Discontinue saline lock post exam. If Pt. has a central line or IVAD, may access for administrationaccording to line specific nursing protocol. Once exam is complete flush line and de-access according to line specific nursing protocol in the CT contrast administration guidelines link. 1 Each 0 03/15/2020 Active Comment on above:CT Chest W -Inject, intravenously, once for 1 [...] protocol in theCT contrast administration guidelines link. Inject 1 Each intravenously one time only [...] and de-access according to line specific nursing protocolin the CT contrast administration guidelines link.MRI Brain Inject, intravenously, once for 1 dose.No IV access, insert saline lock prior to beginning of sedation, infusion, injection of imaging exam.Discontinue saline lock post exam. If Pt. has a central line or IVAD, may access for administration according to line specific nursing protocol.Once exam is complete flush line and de-access according to line specific nursing protocol in the MR contrast administration guidelines linkMultiple Vitamin (MULTIVITAMIN ADULT PO) (20 sources)take 1 capsule by mouth in the morningMultiple Vitamin (MULTIVITAMIN ADULT PO) Take 1 capsule by mouth in the morning. Activetake 1 capsule by mouth in the morningMultiple Vitamin (MULTIVITAMIN ADULT PO) Take 1 capsule by mouth in the morning. 0 ActiveMultiple Vitamin - (20 sources)take 1 tablet by mouth once dailyMultiple Vitamin - 1 tablet Orally Once a day ActiveMultivitamin (Multiple Vitamins) tablet (20 sources)Start: 92-63-6400stkv 1 tablet by mouth once dailyStart: 08-02-2023 take 1 tablet by mouth once dailyMultivitamin (Multiple Vitamins) tablet Active 1 TAB PO Daily August 02, 2023 1:00am Complies with drug therapyStart: 31-49-7738bnsw 1 tablet by mouth once dailyMultivitamin (Multiple Vitamins) tablet Active 1 TAB PO Daily August 02, 2023 1:00amStart: 93-90-8540oeyw 1 tablet by mouth once dailyMultivitamin (Multiple Vitamins) tablet Active 1 TAB PO Daily August 02, 2023 12:00amMultivitamin capsule (15 sources)take 1 capsule by mouth once dailyMultivitamin capsule Take 1 capsule by mouth once daily. Activetake 1 capsule by mouth once daily Multivitamin capsule Take 1 capsule by mouth once daily. 0 ActiveComment on above:Take 1 capsule by mouth once daily.Naloxone (1 source)Opioid AntagonistStart: 07-51-2522sdrHIFDSP hydrochloride 10 mg oral tablet (3 sources)Opioid AgonistStart: 00-73-3889kieh 1 tablet by mouth every four hours as neededStart: 07-00-7451bptx 1 tablet by mouth every four hours as neededStart: 38-09-1726pnik 1 tablet by mouth every four hours as gfoegc04 mg, oral, Every 4 hours PRN, pain severe (7-10), first line, Starting on Sun04/09/24 at 1857, Phase II/On Unit, If ordered PRN for pain, nurse is permitted to administer this medication for higher pain scores based on patient preference? Yespantoprazole 40 mg delayed release oral tablet (14 sources)Proton Pump InhibitorStart: 80-53-0534qzjb 1 tablet by mouth twice dailyPantoprazole 40 mg tablet,delayed release (DR/EC) Active 40 MG PO Twice daily 60 30 November 17, 2024 2:10pm Complies with drug therapyStart: 11-05-2024 End: 67-39-4942fcro 1 tablet by mouth once daily at bedtimePantoprazole 40 mg tablet,delayed release (DR/EC) Discontinued 40 MG PO Daily at bedtime 56 56 November 05, 2024 12:00am November 17, 2024 2:16pmpolyethylene glycol 3350 69439 mg powder for oral solution (1 source)Osmotic LaxativeStart: g, oral, 2 times daily, First dose on Sun04/09/24 at 2100, Phase II/On Unit, Bowel Regimen - for prevention of constipation.tiZANidine 4 mg oral capsule (20 sources)Central alpha-2 Adrenergic AgonistStart: 92-78-5574zjge 1 capsule by mouth twice daily as neededTizanidine 4 mg capsule Active 4 MG PO Twice daily as needed February 19, 2025 12:00am Complies with drug therapyStart: 08-29-2022 End: 94-28-9153mpip 1 tablet by mouth once daily at bedtimeTizanidine (Zanaflex) 4 mg tablet Discontinued 4 MG PO Daily at bedtime August 02, 2023 1:00am [facility] 2023 10:58am FreeTextSi tablet as needed Orally at bedtime; Note: Source Status: Taking; Provider: Satish Howardtart: 04-17-2022 End: 84-10-4646xrdg 1 capsule by mouth twice daily as neededTizanidine 4 mg capsule Discontinued 4 MG PO Twice daily as needed for muscle spasticity 2021 12:00am July 17, 2022 9:02amStart: 04-06-2022 End: 97-34-7615tlwv 2 tablets by mouth at bedtimeTizanidine 4 mg tablet Discontinued 8 MG PO Bedtime April 06, 2022 12:00am August 02, 2023 1 :50pmStart: 04-06-2022 End: 75-85-3597pfij 8 mg by mouth at bedtimeTizanidine Discontinued 8 MG PO Bedtime April 06, 2022 12:00am August 02, 2023 1:50pmStart: 04-06-2022 take 1 tablet by mouth every twenty-four hours as neededtiZANidine (ZANAFLEX) 4 mg tablet Take 4 mg by mouth at bedtime as needed. 0 08/29/2022 ActiveStart: 77-89-4270xrPEQumcmz HCl - 4 MG Oral Tablet Quantity: 30 Refills: 0 Ordered: 01-Nov-2021 DO Start : 01-Nov-2021 Activetake 1 capsule by mouth once daily at bedtimetiZANidine (Zanaflex) 4 mg capsule Take 1 capsule (4 mg) by mouth once daily at bedtime. ActiveComment on above:Take 4 mg by mouth at bedtime as needed. Completed/Discontinued Medications MedicationDrug Class(es)DatesSig (Normalized)Sig (Original)acetaminophen 325 mg / butalbital 50 mg / caffeine 40 mg oral tablet (6 sources)Barbiturate, Central Nervous System Stimulant, MethylxanthineStart: 08-31-2022 End: 00-94-7840evxx 1 tablet by mouth every four to six hours for headache acetaminophen 325 mg-caffeine 40 mg-butalbital 50 mg (FIORICET) per tablet take 1 tablet by mouth every 4 to 6 hours if needed for headache or migraines for 30 DAYS 08/31/2022 11/02/2023 Discontinued(Discontinued by Patient)Comment on above:take 1 tablet by mouth every 4 to 6 hours if needed for headache or migraines for 30 DAYSacetaminophen 300 mg / codeine phosphate 30 mg oral tablet (20 sources)Opioid AgonistStart: 05-07-2023 End: 37-18-2776jsax 1 tablet by mouth twice daily as needed for pain Acetaminophen-Codeine 300-30 mg tablet Discontinued 1 TAB PO Twice daily as needed for Pain May 07, 2023 1:00am August 02, 2023 1:44pm acetaZOLAMIDE 250 mg oral tablet (20 sources)Carbonic Anhydrase InhibitorStart: 08-31-2022 End: 18-59-0675hcza 1 tablet by mouth once daily in the morning, then take 2 tablets by mouth at bedtimeacetaZOLAMIDE (DIAMOX) 250 mg tablet take 1 tablet by mouth every morning and AFTERNOON and 2 at bedtime as directed 0 08/31/2022 Active End: 31-90-9698jowf 1 tablet by mouth every twenty-four hoursacetaZOLAMIDE (Diamox) 250 mg tablet Take by mouth once every 24 hours. 04/10/2024 Discontinued (Therapy completed)take 1 tablet by mouth every twelve hours acetaZOLAMIDE 125 MG 1 tablet Orally Twice a day ActiveComment on above:take 1 tablet by mouth every morning and AFTERNOON and 2 at bedtime as directed [id number] 200 actuat albuterol 0.09 mg/actuat metered dose inhaler (20 sources)beta2-Adrenergic AgonistStart: 09-20-2024 End: 31-69-7289Inoyhtjfk Sulfate 90 mcg/actuation HFA aerosol inhaler Discontinued 1 INH INHALATION Every 4 hours as needed for shortness of breath September 20, 2024 12:00am October 06, 2024 2:05pmStart: 48-31-4191tyzi 2 puff(s) by inhalation every four hoursalbuterol HFA 90 mcg/act inhaler Inhale 2 puffs every 4 (four) hours if needed 04/10/2024 ActiveStart: 17-30-7153dzbp 2 puff(s) by inhalation every four hours for wheezingalbuterol 90 mcg/actuation inhaler Indications: Cervical radiculopathy Inhale 2 puffs every 4 hoursif needed for wheezing or shortness of breath. 18 g 11 04/10/2024 ActiveStart: 04-09-2024 Start: 08-02-2023 End: 95-60-4727gvfo 1 puff(s) by inhalation every four hours as neededAlbuterol Sulfate 90 mcg/actuation HFA aerosol inhaler Discontinued 1 PUFF INHALATION Every 4 hoursFebr2023 1:00am August 02, 2023 1:45pm FreeTextSi puff as needed Inhalation every 4 hrs; Note: Source Status: Start; Refills: 1; Provider: Darling Camara RStart: 07-02-2023 End: 73-48-7810eorz 2 puff(s) by inhalation every four hoursalbuterol 90 mcg/actuation inhaler Inhale 2 puffs every 4 hours if needed. 07/02/2023 04/10/2024 Discontinued (Therapy completed)Start: 52-62-8009dmua 2 puff(s) by inhalation every four hoursalbuterol HFA 90 mcg/act inhaler Inhale 2 puffs every 4 (four) hours if needed 0 07/02/2023 ActiveStart: 32-30-1248wjuc 1 puff(s) by inhalation every four hours as neededAlbuterol Sulfate HFA 108 (90 Base) MCG/ACT 1 puff as needed Inhalation every 4 hrs Jun, ActiveALPRAZolam 0.25 mg oral tablet (20 sources)BenzodiazepineStart: 01-31-2024 End: 51-82-4232mnea 1 tablet by mouth once dailyAlprazolam (Xanax) 0.25 mg tablet Discontinued 0.25 MG PO Daily January 31, 2024 12:00am April 01, 2024 11:01amStart: 05-29-5112aaop 1 tablet by mouth once daily as needed ALPRAZolam (XANAX) 0.25 mg tablet Take 0.25 mg by mouth once daily as needed. 0 09/12/2021 Activetake 1 tablet by mouth every twelve hoursALPRAZolam 0.25 MG 1 tablet Orally Twice a day prn ActiveComment on above:Take 0.25 mg by mouth once daily as needed.amLODIPine 10 mg oral tablet (20 sources)Dihydropyridine Calcium Channel BlockerStart: 02-01-2024 End: 19-56-9141uzlt 1 tablet by mouth once dailyAmlodipine 10 mg tablet Discontinued 10 MG PO Daily April 01, 2024 11:02am September 29, 2024 3:11pmStart: 11-29-2023 End: 95-88-0557guqk 1 tablet by mouth once dailyAmlodipine 10 mg tablet Discontinued 0 .ROUTE .COMPLEX November 29, 2023 12:15pm February 01, 2024 11:05am take 1 tablet orally dailyStart: 11-29-2023 End: 98-17-9158gevd 1 tablet by mouth once dailyAmlodipine Discontinued 0 .ROUTE .COMPLEX November 29, 2023 12:15pm February 01, 2024 11:05am take1 tablet orally dailyStart: 77-42-5901blwo 1 tablet by mouth once dailyAmlodipine Active 0 .ROUTE .COMPLEX November 29, 2023 12:15pm take 1 tablet orally dailyStart: 09-05-2023 End: 37-11-9232xhtn 1 tablet by mouth once dailyAmlodipine 10 mg tablet Discontinued 10 MG PO Daily September 05, 2023 12:00am November 29, 2023 1 2:15pmStart: 03-15-2023 End: 30-73-6995qsuu 1 tablet by mouth once dailyAmlodipine 5 mg tablet Discontinued 5 MG PO Daily August 02, 2023 1:00am September 05, 2023 2:21pm FreeTextSi tablet Orally Once a day; Note: Source Status: Continue; Provider: Darling Camara Ramoxicillin 875 mg / clavulanate 125 mg oral tablet (20 sources)Penicillin-class AntibacterialStart: 09-20-2024 End: 83-46-6165mspm 1 tablet by mouth twice dailyAmoxicillin-Pot Clavulanate 875-125 mg tablet Discontinued 1 TAB PO Twice daily September 20, 2024 12:00am October 06, 2024 2:05pmStart: 02-26-2023 End: 32-96-6902vxqy 1 tablet by mouth twice dailyAmoxicillin-Pot Clavulanate 875-125 mg tablet Discontinued 1 TAB PO Twice daily February 26, 2023 12:00am May 07, 2023 9:24vmWxl2979-Mav Kwo-Zwuf-Njf-Asb-C (10 sources)Osmotic Laxative, Vitamin CStart: 10-10-2024 End: 17-19-9875Fqb4114-Sod Gyi-Naew-Hyw-Asb-C (Plenvu) 140-9-5.2 gram powder in packet, sequential Discontinued 0 PO .COMPLEX 3 October 10, 2024 12:00am October 24, 2024 11:48am POStart: 40-96-1531Oov5306-Sod Bax-Oidh-Dmf-Asb-C (Plenvu) 140-9-5.2 gram powder in packet, sequential Active 0 PO .COMPLEX 3 October 10, 2024 12:00am POatorvastatin 10 mg oral tablet (20 sources)HMG-CoA Reductase InhibitorStart: 68-82-4378sxxv 1 tablet by mouth once dailyatorvastatin (LIPITOR) 10 mg tablet Take 10 mg by mouth once daily. 0 09/28/2021 ActiveStart: 37-28-9123Ckaqnxotbprw Calcium 10 MG Oral Tablet Quantity: 90 Refills: 0 Ordered: 28-Sep-2021 DO Start : 28-Sep-2021 Active Comment on above:Take 10 mg by mouth once daily.azithromycin 250 mg oral tablet (20 sources)Macrolide AntimicrobialStart: 11-19-2024 End: 37-69-3109Zvsfiiypdyix (Zithromax Z-Slim) 250 mg tablet Discontinued 0 PO .COMPLEX November 19, 2024 12:00am February 19, 2025 11:11am For 250 mg dose pack: take 500 mg today (day 1), then 250 mg for 4 days (days 2-5) POStart: 09-20-2024 End: 52-77-9607pbxp 2 tablets by mouth once dailyAzithromycin 250 mg tablet Discontinued 250 MG PO Daily 09 19September 20, 2024 12:00am October 06, 2024 2:06pm start on day 2 of therapyStart: 84-68-3970Fhktsbmdm Z-Slim 250 MG as directed Orally as directed 1 pack Jun, ActiveStart: 82-07-6049Mdrnejhvi Z-Slim 250 MG as directed Orally Nov, ActiveStart: 11-02-2022 End: 21-29-1672iystjshggwba (ZITHROMAX) 250 mg tablet Take by mouth as directed. TAKE 2 TABLETS BY MOUTH TODAY, THEN TAKE 1 TABLET DAILY FOR 4 DAYS 11/02/2022 11/02/2023 Discontinued (Discontinued by Patient)Start: 62-91-2608Gqqpouqqe Z- Slim 250 MG as directed Orally Jul, ActiveStart: 12-91-8048Ysbgobslm Z- Slim 250 MG as directed Orally Feb, ActiveStart: 03-71-2486Apgzoevxz Z- Slim 250 MG 2 tablet on the first day, then 1 tablet daily for 4 days Orally Once a day for 5 day(s) Nov, Not-TakingStart: 30-75-1341Ndmnoupmm Z-Slim 250 MG 2 tablet on the first day, then 1 tablet daily for 4 days Orally Once a day 1 3 Jun, 2021 Activebetamethasone 0.5 mg/ml / clotrimazole 10 mg/ml topical cream (20 sources)Azole Antifungal, CorticosteroidStart: 03-08-2023 End: 84-38-1192Muerjkxfkijr-Betamethasone 1-0.05 % cream Discontinued 1 APPLIC TOPICAL Twice daily August 02, 2023 1:00am August 02, 2023 1:47pm FreeTextSi application Externally Twice a day; Note: Source Status: Not- TakingundefinedPRN; Refills: 1; Qty: 45 grams; Provider: Darling Driver onabotulinumtoxina 200 unt injection (16 sources)Acetylcholine Release InhibitorStart: 07-20-2023 End: 94-90-3254Wqycj 200u vial IJ Soln 200 units injection Indications: Spasmodic Torticollis Inject 400 units into neck muscles every 90 days 2 each 3 07/20/2023 01/08/2025 Discontinuedbrexpiprazole 1 mg oral tablet (20 sources)Atypical AntipsychoticStart: 08-02-2023 End: 18-53-4735othx 0.5 mg by mouth once dailyBrexpiprazole Discontinued 0.5 MG PO Daily August 02, 2023 2:09pm October 18, 2023 8:55amStart: 08-02-2023 End: 15-63-2637sdrv 1 tablet by mouth once dailyBrexpiprazole 1 mg tablet Discontinued 0.5 MG PO Daily August 02, 2023 2:09pm October 18, 2023 8:55am Start: 64-12-1152wikq 1 tablet by mouth every twenty-four hoursRexulti 1 MG 1 tablet Orally Once a day samples provided May, ActiveStart: 05-31-2023 take 1 tablet by mouth every twenty-four hoursRexulti 0.5 MG 1 tablet Orally Once a day for 7 days samples provided May, Activebupivacaine hydrochloride 5 mg/ml injectable solution (18 sources)Amide Local AnestheticStart: 03-24-2025 End: 38-29-4374tcajoaaemgc (Marcaine) 0.5 % injection 5 mgStart: 03-24-2025 End: 21-53-4420nldmgpazrji (Marcaine) 0.5 % injection 5 mgStart: 03-24-2025 End: mg, Injection, Once, On Sun03/24/25 at 1415, For 1 doseStart: 03-24-2025 End: mg, Injection, Once, On Sun03/24/25 at 1415, For 1 doseStart: 02-17-2025 End: 05-60-1953hiuizdlmgog (Marcaine) 0.5 % injection 5 mgStart: 02-17-2025 End: mg, Injection, Once, On Sun02/17/25 at 1345, For 1 doseStart: 12-30-2024 End: 93-83-1016dyqjgaefkqe (Marcaine) 0.5 % injection 5 mgStart: 12-30-2024 End: 55 mg, Injection, Once, On Sun12/30/24 at 1615, For 1 doseStart: 11-19-2024 End: 92-52-2504cwxhgmabsdu (Marcaine) 0.5 % injection 5 mgStart: 11-19-2024 End: mg, Injection, Once, On Sun11/19/24 at 1315, For 1 doseStart: 09-24-2024 End: 10-42-6849tkqfdkpckvl (Marcaine) 0.5 % injection 5 mgStart: 09-24-2024 End: 55 mg (1 mL), Injection, Once, On Sun09/24/24 at 1045, For 1 dose Start: 08-05-2024 End: 46-25-9172bqgbcmkrjms (Marcaine) 0.5 % injection 5 mgStart: 08-05-2024 End: 55 mg (1 mL), Injection, Once, On Sun08/05/24 at 1545, For 1 dose Start: 07-03-2024 End: 04-73-3667cflmprbpgbp (Marcaine) 0.5 % injection 5 mgStart: 07-03-2024 End: 55 mg (1 mL), Injection, Once, On Sun07/03/24 at 1045, For 1 dose Start: 05-22-2024 End: 18-28-4033ethxicfnamp (Marcaine) 0.5 % injection 5 mgStart: 05-22-2024 End: mg (1 mL), Injection, Once, On Lynda 05/22/24 at 1330, For 1 dose 12 hr buPROPion hydrochloride 150 mg extended release oral tablet (10 sources)AminoketoneStart: 02-28-2019 End: 12-37-6259bivw 1 tablet by mouth twice dailybuPROPion SR (WELLBUTRIN SR) 150 mg 12 hr tablet Take 1 tablet by mouth twice daily. 60 tablet 2 02/28/2019 10/17/2022 DiscontinuedComment on above:Take 1 tablet by mouth twice daily. dexamethasone phosphate 4 mg/ml injectable solution (20 sources)CorticosteroidStart: 03-24-2025 End: 40-24-1123dopVFQDHcmxog sod phos (Decadron) injection 4 mgStart: 03-24-2025 End: 54 mg (1 mL), Injection, Once, On Sun03/24/25 at 1415, For 1 dose Start: 02-17-2025 End: 57-84-1204hjkXHTHRizawx sod phos (Decadron) injection 4 mgStart: 02-17-2025 End: 54 mg (1 mL), Injection, Once, On Sun02/17/25 at 1345, For 1 dose Start: 12-30-2024 End: 32-32-1512fboDLXZKgmssb sod phos (Decadron) injection 4 mgStart: 12-30-2024 End: 54 mg (1 mL), Injection, Once, On Sun12/30/24 at 1615, For 1 dose Start: 11-19-2024 End: 32-54-2563cwnBJIVHxinfx sod phos (Decadron) injection 4 mgStart: 11-19-2024 End: 54 mg (1 mL), Injection, Once, On Sun11/19/24 at 1315, For 1 dose Start: 09-24-2024 End: 16-53-0551kakFGZRQjysoo sod phos (Decadron) injection 4 mgStart: 09-24-2024 End: 54 mg (1 mL), Injection, Once, On Sun09/24/24 at 1045, For 1 dose Start: 08-05-2024 End: 58-56-9435zkpCTDCKuypfj sod phos (Decadron) injection 4 mgStart: 08-05-2024 End: 54 mg (1 mL), Injection, Once, On Sun08/05/24 at 1545, For 1 dose Start: 07-03-2024 End: 16-05-9157zoxIIOCUwtohg sod phos (Decadron) injection 4 mgStart: 07-03-2024 End: 54 mg (1 mL), Injection, Once, On Sun07/03/24 at 1045, For 1 dose Start: 05-22-2024 End: 66-50-4118xhnTKRAGosmxy (Decadron) injection 4 mgStart: 05-22-2024 End: 53-82-5771abaxmf 4 mg by intramuscular injection once4 mg, Intramuscular, Once, On Sun05/22/24 at 1330, For 1 doseStart: 04-09-2024 End: mg, intravenous, Once, On Sun04/09/24 at 2215, For 1 dose Start: 08-04-8269Wnidvezolivfw Active MG PO December 03, 2023 12:00amStart: 12-03-2023 End: 79-31-4467Ebxsufbneknxy 2 mg tablet Discontinued MG PO December 03, 2023 12:00am April 28, 2024 10:43amStart: 05-17-4361xksPXMZRxnvdx (Decadron) 2 MG tablet Indications: Cervical radiculopathy , Cervical stenosis of spinal canal , Occipital neuralgia of left side 2mg 3 pills po X3 days,2 pills po daily X3 days , then 1 pill po daily X3 days then stop 9 days 18 pills 18 tablet 0 06/14/2023 Activedoxycycline hyclate 100 mg oral capsule (14 sources)Tetracycline-class DrugStart: 11-25-2024 End: 30-37-4999oceb 1 capsule by mouth twice dailyDoxycycline Hyclate 100 mg capsule Discontinued 100 MG PO Twice daily 06 04November 25, 2024 12:00am February 19, 2025 11:11amStart: 11-05-2018 End: 66-95-6358wrhi 1 capsule by mouth every twelve hoursdoxycycline monohydrate (MONODOX) 100 mg capsule TAKE 1 CAPSULE BY MOUTH EVERY 12 HOURS FOR 10 DAYS0 11/05/2018 10/17/2022 DiscontinuedComment on above:TAKE 1 CAPSULE BY MOUTH EVERY 12 HOURS FOR 10 DAYSDULoxetine 20 mg delayed release oral capsule (4 sources)Serotonin and Norepinephrine Reuptake Inhibitortake 1 capsule by mouth every twelve hoursCymbalta 20 MG 1 capsule Orally Twice a day Not-Taking1 ml evolocumab 140 mg/ml auto-injector (4 sources)PCSK9 InhibitorStart: 10-27-2024 End: 85-59-9652ssgpiv 140 mg by subcutaneous injection every other week Evolocumab (Repatha Sureclick) 140 mg/mL pen injector Discontinued 140 MG SUBCUT EVERY 2 WEEKS 6 2024 12:00am November 03, 2024 9:56amEvolocumab (Repatha Sureclick) 140 mg/mL pen injector (3 sources)Start: 10-27-2024 End: 74-01-0825yetmdl 140 mg by subcutaneous injection every other week Evolocumab (Repatha Sureclick) 140 mg/mL pen injector Discontinued 140 MG SUBCUT EVERY 2 WEEKS 6 2024 12:00am November 03, 2024 9:56amezetimibe 10 mg oral tablet (20 sources)Dietary Cholesterol Absorption InhibitorStart: 11-05-2023 End: 96-89-6711prvz 1 tablet by mouth once dailyEzetimibe 10 mg tablet Discontinued 0 .ROUTE .COMPLEX 90 November 05, 2023 10:42am April 28, 2024 10:44am take 1 tablet by mouth once dailyStart: 09-05-2023 End: 58-69-6411Dyjcacnfl Discontinued MG PO September 05, 2023 12:00am September 05, 2023 1:34pmStart: 06-08-2023 End: 04-40-9620afgz 1 tablet by mouth once dailyEzetimibe (Zetia) 10 mg tablet Discontinued 10 MG PO Daily August 27, 2024 12:00am August 27, 2024 4:02pm Start: 05-15-2023 End: 57-58-7756hxvd 1 tablet by mouth every weekEzetimibe 10 mg tablet Discontinued MG PO August 02, 2023 1:00am August 02, 2023 1:47pm Free TextSi tablet Orally 2 days per week; Note: Source Status: Not- TakingundefinedPRN; Provider: Kamla MCKEONtart: 66-42-8738ckcn 1 tablet by mouth every twenty-four hoursEzetimibe 10 MG 1 tablet Orally Once a day for 90 days Apr, Activegabapentin 100 mg oral capsule (20 sources)Anti-epileptic AgentStart: 08-02-2023 End: 21-40-1970dhlw 1 capsule by mouth once dailyGabapentin 100 mg capsule Discontinued 100 MG PO Daily August 02, 2023 1:00am August 02, 2023 1:47pm FreeTextSi capsule Orally Once a day; Note: Source Status: Not- TakingundefinedPRN; Provider: Darling Camara ( )Start: 04-16-2023 End: 15-44-2106qkxx 1 capsule by mouth three times dailyGabapentin 300 mg capsule Discontinued 300 MG PO Three times daily May 07, 2023 1:00am August 02, 2023 1:47pmStart: 02-27-2019 End: 29-96-7239ofcu 1 capsule by mouth three times dailygabapentin (NEURONTIN) 300 mg capsule Take 1 capsule by mouth three times daily for 30 days. 90 capsule 02/27/2019 10/17/2022 Discontinuedtake 1 capsule by mouth every twenty-four hoursGabapentin 100 MG 1 capsule Orally Once a day Not-Taking/PRNComment on above:Take 1 capsule by mouth three times daily for 30 days.gadoterate meglumine (Dotarem) 0.5 mmol/mL contrast injection 30 mL (1 source)Start: 12-13-2023 End: 07-26-0093tecfuy 30 mL intravenously once30 mL, intravenous, Once in imaging, Starting on [facility] 12/13/23 at 0817, For 1 dose, Administer undiluted as rapid I.V. bolus injectionhydrOXYzine hydrochloride 25 mg oral tablet (20 sources)AntihistamineStart: 05-26-2022 End: 84-79-5950xztk 1-2 tablets by mouth at bedtime as neededHydroxyzine Hcl 25 mg tablet Discontinued MG PO August 02, 2023 1:00am September 05, 2023 1:37pm FreeTextSi-2 tablets Orally HS as needed; Note: Source Status: Taking; Provider: Darling Camara RComment on above:take 1 to 2 tablets by mouth at bedtime if neededibuprofen 800 mg oral tablet (20 sources)Nonsteroidal Anti-inflammatory DrugStart: 08-02-2023 End: 42-95-3068igze 1 tablet by mouth three times daily as needed for pain Ibuprofen 800 mg tablet Discontinued 800 MG PO Three times daily as needed for pain September 05, 2023 1:35pm October 06, 2024 2:06pm FreeTextSi tablet with food or milk as needed Orally Three times a day; Note: Source Status: TakingPRN; Provider: Darling Camara ( )Start: 04-17-2022 End: 70-48-2207jevg 1 tablet by mouth every eight hours as needed for pain Ibuprofen 600 mg tablet Discontinued 600 MG PO Q8H as needed for pain April 17, 2022 12:00amJuly 17, 2022 9:01amtake 1 tablet by mouth three times daily at mealtime as neededIbuprofen 800 MG 1 tablet with food or milk as needed Orally Three times a day PRN Activeindomethacin 75 mg extended release oral capsule (20 sources)Nonsteroidal Anti-inflammatory DrugStart: 08-02-2023 End: 55-05-2557jyki 1 capsule by mouth once daily at mealtimeIndomethacin 75 mg capsule, extended release Discontinued 75 MG PO Daily August 02, 2023 1:00am August 02, 2023 1:48pm FreeTextSi capsule with food Orally Once a day; Note: Source Status:Not-TakingundefinedPRNprn; Provider: Darling Camara ( )Start: 07-17-2022 End: 81-68-3855dqzhasovcjde (INDOCIN) 25 mg capsule Indomethacin Active 25 MG PO Daily July 17, 2022 1:00am 07/17/2022 11/02/2023 Discontinued (Discontinued by Patient)Start: 07-17-2022 End: 15-98-3533tmuy 1 capsule by mouth once dailyIndomethacin 25 mg Capsule Discontinued 25 MG PO Daily July 17, 2022 1:00am August 02, 2023 1:48pm take 1 capsule by mouth once daily at mealtimeindomethacin SR (Indocin SR) 75 MG ER capsule indomethacin ER 75 mg capsule,extended release take 1capsule by mouth once daily with food 0 Activetake 1 capsule by mouth every twenty-four hoursIndomethacin ER 75 MG 1 capsule with food Orally Once a day prn Active Ketorolac (20 sources)Nonsteroidal Anti-inflammatory Drug, Cyclooxygenase InhibitorStart: 79-06-6734Vkcxuvh per 15 mg Jan, 2 mLlisinopril 10 mg oral tablet (20 sources)Angiotensin Converting Enzyme InhibitorStart: 10-18-2023 End: 72-88-7874pjif 1 tablet by mouth once dailyLisinopril 10 mg tablet Discontinued 10 MG PO Daily April 01, 2024 11:02am September 29, 2024 3:11pmStart: 09-05-2023 End: 99-73-2814wktl 1 tablet by mouth once dailyLisinopril 5 mg tablet Discontinued 5 MG PO Daily September 05, 2023 12:00am October 18, 2023 9:30am take 2 tablets by mouth once dailylisinopril 5 mg tablet Take 2 tablets (10 mg) by mouth once daily. Activemeclizine hydrochloride 25 mg oral tablet (20 sources)AntiemeticStart: 04-29-2018 End: 48-54-3897mlei 1 tablet by mouth three times daily as needed for dizziness Meclizine 25 mg tablet Discontinued 25 MG PO Three times daily as needed for dizziness April 29, 2018 1:00am April 06, 2022 4:26pmmethocarbamol 750 mg oral tablet (20 sources)Muscle RelaxantStart: 05-21-2024 End: 59-22-7261kzig 1 tablet by mouth once daily at bedtimeMethocarbamol 750 mg tablet Discontinued 750 MG PO Daily at bedtime July 03, 2024 1:00am September 20, 2024 11:05amStart: 12-03-2023 End: 64-08-6720Vapwantzrpcyu 500 mg tablet Discontinued 500 MG PO December 03, 2023 10:58am April 28, 2024 10:45amStart: 12-03-2023 End: 19-22-0149Daxnaikxicrej Discontinued MG PO December 03, 2023 12:00am December 03, 2023 10:59ammethylPREDNISolone 4 mg oral tablet (20 sources)CorticosteroidStart: 11-25-2024 End: 14-23-5829Rflcqheygwdqrinccg 4 mg tablets,dose pack Discontinued 0 PO per package directions November 25, 2024 12:00am February 19, 2025 11:11am PO PER PKG DIRStart: 11-19-2024 End: 64-40-7553tdsf 1 tablet by mouth onceMethylprednisolone (Medrol (Slim)) 4 mg tablets,dose pack Discontinued 0 PO per package directions November 19, 2024 12:00am February 19, 2025 11:11am PO PER PKG DIR for 6 daysStart: 08-02-2023 End: 42-83-3862Tgmueduwsfdhlryjun 4 mg tablets,dose pack Discontinued MG PO As Directed August 02, 2023 1:00amFebruary 2023 1:48pm FreeTextSig: as directed Orally as directed; Note: Source Status: Zxuzc9wpsh; Refills: 0; Provider: Darling Camara RStart: 08-02-2023 End: 29-00-1707Jwyhtreclvukrmoyku Discontinued MG PO As Directed August 02, 2023 1:00am August 02, 2023 1:48pm FreeTextSig: as directed Orally as directed; Note: Source Status: Start1 pack; Refills: 0; Provider: Darling Driver Start: 08-02-2023 End: 32-81-1924Opqnegomcntswtqzsq Discontinued MG PO As Directed August 02, 2023 12:00am August 02, 2023 12:48pm FreeTextSig: as directed Orally as directed; Note: Source Status: Start1 pack; Refills: 0; Provider: Darling Driver Start: 15-24-5474hygqwbXAYZLRRghzuq 4 MG as directed Orally as directed 1 pack Jun, ActiveStart: 28-39-0271Ufvdkv 4 MG as directed Orally Feb, ActiveStart: 52-85-0971tbjvxdZCOIMMYvafcv 4 MG as directed Orally Nov, Not-TakingStart: 75-43-9121xnrpnoUEXSWVCkanal 4 MG as directed Orally as directed Jun, Activemirtazapine 15 mg oral tablet (20 sources)Start: 09-01-2022 End: 33-23-5952psmz 0.5 tablet by mouth once daily at bedtime as needed Mirtazapine 15 mg tablet Discontinued MG PO Daily at bedtime as needed September 05, 2023 1:35pm October 29, 2023 10:19am FreeTextSi/2 tablet at bedtime Orally Once a day; Note: Source Status: Taking; Provider: Darling Camara ( )Start: 09-01-2022 End: 09-96-5455rvfc 1 tablet by mouth once daily at bedtime as neededMirtazapine 15 mg tablet Discontinued 15 MG PO Daily at bedtime as needed for restless leg(s) October 29, 2023 10:18am October 06, 2024 2:06pmStart: 07-17-2022 End: 19-60-5610swmw 1 tablet by mouth at bedtime as neededMirtazapine 7.5 mg Tablet Discontinued 7.5 MG PO Bedtime as needed for Insomnia July 17, 2022 1:00am August 02, 2023 1:49pmComment on above:Take by mouth daily at bedtime.montelukast 10 mg oral tablet (20 sources)Leukotriene Receptor AntagonistStart: 07-17-2022 End: 72-68-4149jlnf 1 tablet by mouth once dailyMontelukast (Singulair) 10 mg tablet Discontinued 10 MG PO Daily August 02, 2023 1:00am August 02, 2023 2:10pm FreeTextSi tablet Orally Once a day; Note: Source Status: Taking; Provider: Darling Camara ( )Comment on above:Take 10 mg by mouth daily at bedtime.naproxen 500 mg oral tablet (20 sources)Nonsteroidal Anti-inflammatory DrugStart: 12-10-2017 End: 68-63-6146jxbm 1 tablet by mouth twice daily at mealtimeNaproxen 500 mg tablet Discontinued 500 MG PO Twice daily December 10, 2017 12:00am April 3:12pm administer with food or milk24 hr nicotine 0.875 mg/hr transdermal system (12 sources)Cholinergic Nicotinic AgonistStart: 08-14-2023 End: 43-58-4490ntaij 1 dose transdermal route every twenty-four hoursnicotine (Nicoderm CQ) 21 MG/24HR patch Indications: Cigarette [...] at treatment onset 44 patch 08/14/2023 01/08/2025 Discontinuedolmesartan medoxomil 20 mg oral tablet (20 sources)Angiotensin 2 Receptor BlockerStart: 05-07-2023 End: 45-98-2196Uhsxmrmdjb 20 mg tablet Discontinued MG May 07, 2023 1:00am August 02, 2023 1:50pmStart: 05-07-2023 End: 54-14-7828Uduuwwlgfa Discontinued MG TABLET May 07, 2023 1:00am August 02, 2023 1:50pmondansetron 4 mg disintegrating oral tablet (13 sources)Serotonin-3 Receptor AntagonistStart: 10-06-2024 End: 19-28-3229anin 1 tablet by mouth every eight hours as needed for nausea and vomitingOndansetron 4 mg tablet,disintegrating Discontinued 4 MG PO Every 8 hours as needed for nausea and vomiting 9 3 October 06, 2024 12:00am October 24, 2024 11:48amStart: 52-27-9384mgrm 1 tablet by mouth every eight hours as needed ondansetron (Zofran) tablet 4 mgoxygen (O2) therapy (1 source)Start: 04-09-2024 End: 86-98-0122uswbkpdylv, Continuous - Inhalation, First dose on Sun04/09/24 at 1715, Recovery (only), Device: Nasal Cannula, Rate in liters per minute: Other, Custom Value: 1-6 LPM, Keep O2 Sat Above: 92%pravastatin sodium 40 mg oral tablet (20 sources)HMG-CoA Reductase InhibitorStart: 11-05-2023 End: 40-93-0759opoy 1 tablet by mouth once dailyPravastatin 40 mg tablet Discontinued 0 .ROUTE .COMPLEX 90 August 27, 2024 4:02pm October 0652:06pm take 1 tablet by mouth once dailyStart: 07-06-2023 End: 96-28-5600bnnb 1 tablet by mouth once dailyPravastatin 40 mg tablet Discontinued 40 MG PO Daily October 29, 2023 12:00am November 05, 2023 10:42amStart: 52-97-4218jewr 1 tablet by mouth every twenty-four hoursPravastatin Sodium 40 MG 1 tablet Orally Once a day for 90 days Apr, ActivepredniSONE 10 mg oral tablet (20 sources)Start: 03-21-2023 End: 22-80-5245Gcagkxfsjp 10 mg tablet Discontinued 60 MG PO Daily March 21, 2023 12:00am May 07, 2023 9:24am administer with food or milkStart: 03-21-2023 End: 36-52-5127bwxa 60 mg by mouth once daily at mealtimePrednisone Discontinued 60 MG PO Daily March 21, 2023 12:00am May 07, 2023 9:24am admin ister with food or milkStart: 04-06-2022 End: 61-83-8786udop 2 tablets by mouth once daily at mealtimePrednisone 20 mg tablet Discontinued 40 MG PO Daily April 06, 2022 12:00am July 17, 2022 9:01am administer with food or milkStart: 04-06-2022 End: 98-71-3334kcvz 40 mg by mouth once daily at mealtimePrednisone Discontinued 40 MG PO Daily April 06, 2022 12:00am July 17, 2022 9:01am admin ister with food or milkpregabalin 50 mg oral capsule (20 sources)Start: 06-30-2024 End: 76-56-1054vaqn 1 capsule by mouth once dailyPregabalin 50 mg capsule Discontinued 50 MG PO Daily July 03, 2024 1:00am September 20, 2024 11:05am Start: 06-30-2024 End: 80-43-1529ahab 1 capsule by mouth twice dailypregabalin (Lyrica) 50 mg capsule Indications: Status post cervical spinal fusion Take 1 capsule (50 mg) by mouth 2 times a day. 60 capsule 06/30/2024 Activepromethazine hydrochloride 25 mg oral tablet (20 sources)PhenothiazineStart: 04-29-2018 End: 77-43-5827jqor 1 tablet by mouth every six hours as needed for nausea Promethazine 25 mg Tablet Discontinued 25 MG PO Q6H as needed for Nausea September 08, 2021 12:00am April 06, 2022 4:26pmtake 1 tablet by mouth every twelve hoursPromethazine HCl 25 MG 1 tablet as needed Orally every 12 hrs Active rimegepant 75 mg disintegrating oral tablet (20 sources)Start: 04-06-2022 End: 16-36-8486Ykyptpmncx (Nurtec Odt) 75 mg tablet,disintegrating Discontinued 75 MG PO Q48H April 06, 2022 12:00am July 17, 2022 9:02amtake 1 tablet by mouth once dailyNurtec 75 MG 1 tablet on the tongue and allow to dissolve Orally Ever Other Day Activerosuvastatin calcium 5 mg oral tablet (20 sources)HMG-CoA Reductase InhibitorStart: 02-77-4313zmwk 1 tablet by mouth once dailyrosuvastatin (Crestor) 5 MG tablet Take 5 mg by mouth Daily 06/27/2023 ActiveStart: 05-31-2023 End: 38-99-1642yyao 1 tablet by mouth every weekRosuvastatin 5 mg tablet Discontinued 5 MG PO August 02, 2023 1:00am August 02, 2023 2:10pm FreeTextSi tablet Orally 2 days per week; Note: Source Status: Not- TakingundefinedPRN; Refills:1; Provider: Darling Camara RSUMAtriptan 100 mg oral tablet (8 sources)Serotonin-1b and Serotonin-1d Receptor Agonisttake 1 tablet by mouth every two hours as needed, then take 1 tablet by mouth twice daily as needed Imitrex 100 MG 1 tablet at least 2 hours between doses as needed Orally Twice a day Not-Takingterbinafine hydrochloride 10 mg/ml topical cream (20 sources)Allylamine AntifungalStart: 12-03-2023 End: 08-68-7852Wwrcneeeukc Hcl 1 % cream Discontinued APPLIC TOPICAL December 03, 2023 12:00am September 20, 2024 11:05amStart: 47-43-3160Tplzvxdgwzv Hcl Active APPLIC TOPICAL December 03, 2023 12:00amStart: 72-32-9149cplbqjinfjw (LamISIL AT) 1 % cream Indications: Tinea manuum Apply to the affected area on the hand, bid, 30 day supply 42 g 1 11/28/2023 Activetopiramate 100 mg oral tablet (1 source)take 1 tablet by mouth every twenty-four hoursTopamax 100 MG 1 tablet Orally Once a day Not-TakingToradol 30 mg/ml (20 sources)Start: 92-63-9048Lqjkcxv 30 mg/ml Jun, 60 mgStart: 23-36-5756Vtxvkks 30 mg/ml Aug, 60 mgTriamcinolone (20 sources)CorticosteroidStart: 06-17-8884EJLRUEK - 10 mg Jan, 1.5 cc24 hr divalproex sodium 250 mg extended release oral tablet (20 sources)Mood Stabilizer, Anti-epileptic AgentStart: 10-42-3818ujko 1 tablet by mouth once dailydivalproex ER (DEPAKOTE ER) 250 mg 24 hr tablet Take 250 mg by mouth once daily. 0 09/28/2021 ActiveStart: 42-33-1302axxa 1 tablet by mouth every twenty-four hoursDivalproex Sodium ER 250 MG Oral Tablet Extended Release 24 Hour Quantity: 90 Refills: 0 Ordered: 28-Sep-2021 DO Start : 28-Sep-2021 ActiveComment on above:Take 250 mg by mouth once daily.vortioxetine 5 mg oral tablet (4 sources)Start: 09-12-2021 End: 02-40-4997hwaj 1 tablet by mouth every twenty-four hoursvortioxetine (TRINTELLIX) 5 mg tablet Take by mouth every 24 hours. 09/12/2021 11/03/2024 DiscontinuedStart: 54-51-0813xkfj 1 tablet by mouth every twenty-four hours Trintellix 5 MG 1 tablet Orally Once a day for 30 day(s) Samples Aug, Activezonisamide 25 mg oral capsule (9 sources)Anti-epileptic AgentStart: 10-18-2022 End: 38-23-1416oesbzkhtom (ZONEGRAN) 25 mg capsule take 1 capsule by mouth at bedtime for 1 week then INCREASE to 1 ... (REFER TO PRESCRIPTION NOTES). 10/18/2022 11/02/2023 Discontinued (Discontinued by Patient)NEGATED: Highlighted row has not occurred!citalopram (CeleXA) 20 mg Tablet Directions: 1 tablet oral daily (1 source)take 1 tablet by mouth once dailycitalopram (CeleXA) 20 mg Tablet Directions: 1 tablet oral dailyNEGATED: Highlighted row has not occurred! hydrOXYzine HCl 25 mg Tablet Directions: 1 tablet oral daily PRN pain (1 source)take 1 tablet by mouth once daily as needed for painhydrOXYzine HCl 25 mg Tablet Directions: 1 tablet oral daily PRN painNEGATED: Highlighted row has not occurred!ibuprofen 600 mg oral tablet (1 source)Nonsteroidal Anti-inflammatory Drugtake 1 tablet by mouth twice daily ibuprofen 600 mg Tablet, Ordered By: Lima Joseph MD Directions: 1 tablet Oral twice a dayNEGATED: Highlighted row has not occurred!indomethacin 25 mg oral capsule (1 source)Nonsteroidal Anti-inflammatory Drugtake 1 capsule by mouth once daily indomethacin 25 mg Capsule, Ordered By: Lima Joseph MD Directions: 1 capsule Oral dailyNEGATED: Highlighted row has not occurred!mirtazapine 15 mg oral tablet (1 source)take 1 tablet by mouth once daily at bedtimemirtazapine 15 mg Tablet, Ordered By: Lima Joseph MD Directions: 1 tablet oral daily at bedtime NEGATED: Highlighted row has not occurred!montelukast 10 mg oral tablet (1 source)Leukotriene Receptor Antagonisttake 1 tablet by mouth once daily montelukast 10 mg Tablet, Ordered By: Lima Joseph MD Directions: 1 tablet Oral daily Problems Active Problems Problem ClassificationProblemDateDocumented DateEpisodic/ChronicAbdominal pain (20 sources)Abdominal pain; Translations: [Unspecified abdominal pain]Onset: 737778-89-7431NvrfkrlfRfywrmyl reactions (20 sources)Eczema; Translations: [Dermatitis, unspecified]EpisodicAnxiety disorders (20 sources)Anxiety; Translations: [Anxiety state, unspecified]Onset: 04-14-2021 Resolved: 84-71-7557CwlcvktPkmmjt of head and neck (20 sources)Squamous cell carcinoma of head and neck; 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 of head, face and neck]Onset: 50-77-8685ZmvlnhzIgeynm of head and neck (20 sources)History of malignant neoplasm of head and/or neck; Translations: [Personal history of malignant neoplasm of unspecified site of lip, oral cavity, and pharynx]Onset: 045805-93-4875LnwgqoecDpcyli; other and unspecified primary (3 sources)History of squamous cell carcinoma; Translations: [Personal history of malignant neoplasm of other sites]EpisodicCardiac dysrhythmias (20 sources)Cardiac arrhythmia; Translations: [Cardiac arrhythmia, unspecified] Onset: 20-06-6035OejbdpmRfhpqvdy (20 sources)Age-related nuclear cataract of right eye; Translations: [Age- related nuclear cataract, right eye]Onset: 030684-70-9293ScgjtwbZflnlcarkp associated with dizziness or vertigo (20 sources)Lightheadedness; Translations: [Dizziness and giddiness]Onset: 81-36-2704AmtkatjaFmvwhnxtrl disorders (20 sources)First degree atrioventricular block; Translations: [Atrioventricular block, first degree]Onset: 351431-53-6781DctbkftWcfqgewc atherosclerosis and other heart disease (20 sources)Coronary arteriosclerosis; Translations: [Atherosclerotic heart disease of [place] coronary artery without angina pectoris]Onset: 02-26-2024 87-08-9070WyikuunOkjnhpsil of lipid metabolism (20 sources)Hyperlipidemia; Translations: [Hyperlipidemia, unspecified]Onset: 09-19-2021 Resolved: 25-52-1981BhzvzryEhmiygnbxo disorders (8 sources)Gastroesophageal reflux disease; Translations: [Gastro-esophageal reflux disease without esophagitis]86-56-7919GnduhosYkhwqvqxm hypertension (20 sources)Essential hypertension; Translations: [Essential (primary) hypertension]Onset: 16-89-1277UeegmmcGzxke and electrolyte disorders (12 sources)Dehydration; Translations: [Dehydration]48-32-6360LpzpstslXiwhmchm (20 sources)Preglaucoma, unspecified, right eye; Translations: [Preglaucoma, unspecified]Onset: 848268-97-8506RszjqewYtqgxvfs; including migraine (20 sources)Migraine; Translations: [Migraine, unspecified, not intractable, without status migrainosus]Onset: 62-57-7733SsfikfrHxubancy; including migraine (20 sources)Headache; Translations: [Headache]EpisodicLymphadenitis (1 source)Enlarged lymph nodes, unspecifiedEpisodicMalignant neoplasm without specification of site (20 sources)Primary malignant neoplasm; Translations: [Malignant (primary) neoplasm, unspecified]Onset: 908560-36-4571SlnmymuGyne disorders (3 sources)Depressive disorder; Translations: [Depressive disorder, not elsewhere classified]ChronicOsteoarthritis (20 sources)Arthritis; Translations: [Unspecified osteoarthritis, unspecified site]Onset: 993733-75-3811JhhhmkhRzuproerrepy (20 sources)Senile osteoporosis; Translations: [Age-related osteoporosis without current pathological fracture]Onset: 511075-65-3828ZcrxktiYuksc and unspecified benign neoplasm (2 sources)Acoustic neuroma; Translations: [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Other and unspecified benign neoplasm (2 sources)Melanocytic nevus of trunk; Translations: [Melanocytic nevi of trunk] 96-06-1894GmddrhkvQuwrk and unspecified benign neoplasm (9 sources)Polyp of colon; Translations: [Polyp of colon]32-26-0676NszwxjliIzosr circulatory disease (1 source)Presence of other vascular implants and graftsChronicOther circulatory disease (4 sources)Elevated blood-pressure reading, without diagnosis of hypertension Onset: 12-26-2021 Resolved: 12-72-3736ZeecrcgrNevrl circulatory disease (15 sources)Elevated blood pressure; Translations: [Elevated blood-pressure reading, without diagnosis of hypertension]EpisodicOther circulatory disease (1 source)Other specified symptoms and signs involving the circulatory and respiratory systemsEpisodicOther circulatory disease (2 sources)Spider nevus; Translations: [Nevus, non-neoplastic]70-20-7231Ratjjkqd Other connective tissue disease (3 sources)History of cervical spine fusion; Translations: [Arthrodesis status] 44-93-5845HzualbfkMvbqt connective tissue disease (1 source)Muscle spasm of cervical muscle of neck; Translations: [Other muscle spasm]77-02-9010FnequkckSygrk ear and sense organ disorders (16 sources)Otalgia, left ear; Translations: [Left ear pain]EpisodicOther ear and sense organ disorders (11 sources)Bilateral tinnitus; Translations: [Tinnitus, bilateral]EpisodicOther ear and sense organ disorders (1 source)Tinnitus, bilateralEpisodicOther gastrointestinal disorders (8 sources)Altered bowel function; Translations: [Change in bowel habit] 15-80-6991DrzygxcrKgmdp gastrointestinal disorders (8 sources)Dysphagia; Translations: [Dysphagia, unspecified]13-63-8970Hrykzxgf Other gastrointestinal disorders (8 sources)Diarrhea; Translations: [Diarrhea, unspecified]68-64-2146Oztotfcm Other gastrointestinal disorders (6 sources)Change in bowel habit; Translations: [Other symptoms involving digestive system]53-66-9280SlhomzxdVlaow gastrointestinal disorders (6 sources)Dysphagia, unspecified; Translations: [Dysphagia, unspecified] 36-04-8890MtaxepsbHlygq hereditary and degenerative nervous system conditions (20 sources)Isolated cervical dystonia; Translations: [Spasmodic torticollis] Onset: 410347-12-7608RxjxoauTmurz infections; including parasitic (20 sources)Personal history of other infectious and parasitic diseases; Translations: [History of COVID-19]79-68-0709JtiznklmEzolt lower respiratory disease (20 sources)Solitary nodule of lung; Translations: [Solitary pulmonary nodule] EpisodicOther lower respiratory disease (20 sources)Productive cough ; Translations: [Productive cough]Onset: 10-16-2023 45-21-6092FmqdmdezCdtib nervous system disorders (3 sources)Demyelinating disease of central nervous system; Translations: [Other demyelinating diseases of central nervous system]ChronicOther nervous system disorders (20 sources)Mass lesion of brain; Translations: [Other specified disorders of brain]Onset: 725927-01-2688KmxwijqIdicb nervous system disorders (5 sources)Disorder of brain, unspecifiedOnset: 10-24-2021 Resolved: 27-16-7983ZkwhhhkVlhhl nervous system disorders (2 sources)Raised intracranial pressure; Translations: [Benign intracranial hypertension]ChronicOther nervous system disorders (1 source)Benign intracranial hypertensionChronicOther nervous system disorders (1 source)Normal pressure hydrocephalus; Translations: [(Idiopathic) normal pressure hydrocephalus]ChronicOther nervous system disorders (1 source)(Idiopathic) normal pressure hydrocephalus; Translations: [NPH (normal pressure hydrocephalus) (HCC)]Onset: 59-23-2176NgsfebxSvgrk nervous system disorders (20 sources)Brachial plexus disorder; Translations: [Brachial plexus disorders] Onset: 434322-12-8320GbjqbrnJtvqx nervous system disorders (20 sources)Ulnar neuropathy; Translations: [Lesion of ulnar nerve, unspecified upper limb]Onset: 476159-99-4697MglqtznLiwvc nervous system disorders (1 source)Lesion of brainstem; Translations: [Disorder of brain, unspecified] 84-27-0354HshgjmuVwxzh nervous system disorders (4 sources)Other specified disorders of brain; Translations: [Other conditions of brain]35-45-6282OamhbjaBzrty nervous system disorders (19 sources)Central pontine myelinolysis; 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]Onset: 172975-30-5379WjwhxmiNyhax nervous system disorders (20 sources)Disorder of nerve root and/or plexus; Translations: [Other nerve root and plexus disorders]Onset: 242216-79-2929YapgzeyAgxdd nervous system disorders (6 sources)Finding of sensation of upper limb; Translations: [Paresthesia of skin]EpisodicOther nervous system disorders (20 sources)Paresthesia of left lower limb; Translations: [Paresthesia of skin] Onset: 827330-03-2570EaqjdsowCpxqk nervous system disorders (2 sources)Anesthesia of skinOnset: 01-30-2022 Resolved: 19-68-3649FmvupjteMimnl nervous system disorders (20 sources)Burning sensation; Translations: [Other disturbances of skin sensation]Onset: 730609-31-9680VxtfipgeKwpsb nervous system disorders (1 source)Other disturbances of skin sensationEpisodicOther nervous system disorders (20 sources)Impairment of balance; Translations: [Other abnormalities of gait and mobility]Onset: 844318-86-3292PibekhtsZszue nervous system disorders (6 sources)Other abnormalities of gait and mobility; Translations: [Other symptoms involving nervous and musculoskeletal systems]EpisodicOther nervous system disorders (1 source)Acute postoperative pain; Translations: [Other acute postprocedural pain]48-20-0725OrjwgbfiIouxf non-epithelial cancer of skin (20 sources)Squamous cell carcinoma of skin; Translations: [Squamous cell carcinoma of skin, unspecified]61-62-7957VdggwaamPqasccd on above:head/neckOther non-traumatic joint disorders (20 sources)Joint pain; Translations: [Pain in unspecified joint]08-02-2023 EpisodicOther non-traumatic joint disorders (20 sources)Pain in left shoulder; Translations: [Pain in joint, shoulder region]Onset: 64-92-0241VtvukulgHxeta non-traumatic joint disorders (1 source)Pain in unspecified jointEpisodicOther non-traumatic joint disorders (2 sources)Pain in right shoulder; Translations: [Pain in joint, shoulder region]75-09-2324YwqmdykdAdnix nutritional; endocrine; and metabolic disorders (3 sources)Weight loss; Translations: [Loss of weight]EpisodicOther nutritional; endocrine; and metabolic disorders (3 sources)H/O: metabolic disorder; Translations: [Personal history of other endocrine, metabolic, and immunity disorders]EpisodicOther nutritional; endocrine; and metabolic disorders (7 sources)Unexplained weight loss ; Translations: [Abnormal weight loss] 07-94-8305NixvlyteVprtj nutritional; endocrine; and metabolic disorders (3 sources)Abnormal weight loss; Translations: [Loss of weight]10-10-2024 EpisodicOther screening for suspected conditions (not mental disorders or infectious disease) (20 sources)Encounter for screening for malignant neoplasm of prostate; Translations: [Magnetic resonance imaging of brain abnormal]Onset: 09-19-2021 Resolved: 65-91-7931DrbkwabpMdxio skin disorders (20 sources)Mass of neck; Translations: [Localized swelling, mass and lump, neck]EpisodicOther skin disorders (20 sources)Vesicular eczema; 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]]Onset: 076311-30-7410EyfjbzdsIuyyj skin disorders (1 source)Dyshidrosis [pompholyx]EpisodicOther skin disorders (1 source)Finding of neck region; Translations: [Localized swelling, mass and lump, neck]15-03-2636FbydfoihTrmts skin disorders (2 sources)Seborrheic keratosis; Translations: [Other seborrheic keratosis] 67-91-7257WppttlwuHnvoz skin disorders (2 sources)Inflamed seborrheic keratosis; Translations: [Inflamed seborrheic keratosis]10-94-0965MwpylpreUfdoc skin disorders (2 sources)Actinic keratosis; Translations: [Actinic keratosis]01-08-2025 EpisodicOther upper respiratory disease (3 sources)Other specified disorders of nose and nasal sinusesOnset: 06-29-2021 Resolved: 08-81-4523ZscsnvvbSjdee upper respiratory disease (4 sources)Nasal sinus problem; Translations: [Other specified disorders of nose and nasal sinuses]EpisodicOther upper respiratory infections (13 sources)Sinusitis; Translations: [Chronic sinusitis, unspecified]Onset: 06-30-2021 Resolved: 60-79-0107XcsgzyxJhhei upper respiratory infections (20 sources)Acute pharyngitis, unspecified; Translations: [Acute sinusitis] Onset: 48-36-1282YqmunfdbEmjfgn media and related conditions (20 sources)Acute transudative otitis media; Translations: [Other acute nonsuppurative otitis media, left ear]Onset: 667127-58-6967Caogasdy Peripheral and visceral atherosclerosis (20 sources)Intermittent claudication; Translations: [Peripheral vascular disease, unspecified]Onset: 45-66-6472KglrihhUtpefpgvb (except that caused by tuberculosis or sexually transmitted disease) (13 sources)Pneumonia; Translations: [Pneumonia, unspecified organism]09-20-2024 EpisodicResidual codes; unclassified (4 sources)Postprocedural state finding; Translations: [Presence of other specified functional implants]32-72-2935VefhylzAeqvdnmg codes; unclassified (20 sources)Insomnia; Translations: [Insomnia, unspecified]Onset: 12-10-2022 52-83-8163SmtwslzjXpkdbmlr codes; unclassified (2 sources)Insomnia, unspecifiedEpisodicResidual codes; unclassified (18 sources)History of cervical discectomy; Translations: [Other specified postprocedural states]71-12-8057JvmmnoeeHoclgans codes; unclassified (4 sources)Other specified postprocedural states; Translations: [Other postprocedural status]87-63-7256UfzsocvcTqezcair codes; unclassified (7 sources)Early satiety; Translations: [Early satiety]72-85-1383Vpclwdjh Residual codes; unclassified (3 sources)Early satiety; Translations: [Early satiety]61-70-3809Agddhyab Secondary malignancies (3 sources)Metastasis to head and neck lymph node; Translations: [Secondary and unspecified malignant neoplasmof lymph nodes of head, face, and neck]Chronic Secondary malignancies (2 sources)Secondary malignant neoplastic disease; Translations: [Other malignant neoplasm without specification of site]ChronicSecondary malignancies (20 sources)Secondary malignant neoplasm of lymph node; Translations: [Secondary and unspecified malignant neoplasm of lymph node, unspecified]Onset: 12-10-2022 47-57-5331VmxaealTnxkybedpyu; intervertebral disc disorders; other back problems (20 sources)Cervical spondylosis; Translations: [Spondylosis without myelopathy or radiculopathy, cervical region]Onset: 62-29-5790KlcbkknDqzktcwokub; intervertebral disc disorders; other back problems (20 sources)Neck pain; Translations: [Cervicalgia]Onset: 12-05-2021 Resolved: 49-65-5505NdtwmafvYdahigjpa-related disorders (20 sources)Nicotine dependence with current use; Translations: [Nicotine dependence, unspecified, uncomplicated]Onset: 04-14-2021 Resolved: 84-11-8698WvaiejgBrluylk disorders (3 sources)Thyroid nodule; 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 Transient cerebral ischemia (20 sources)Transient cerebral ischemia; Translations: [Transient cerebral ischemic attack, unspecified]ChronicUnclassified (9 sources)Patient has spine surgeryOnset: 843679-24-7901Wgxxdljcvpva (3 sources)History of cervical spine deknld30-62-7741Ntnpiilzvvfc (2 sources)Post-op Spine Surgery; Translations: [Post-op Spine Surgery]Onset: 49-05-9640Tenly infection (15 sources)Respiratory syncytial virus infection; Translations: [Other specified viral diseases]Onset: 94-66-0204Zsurkizh Past or Other Problems Problem ClassificationProblemDateDocumented DateEpisodic/ChronicBlindness and vision defects (20 sources)Unspecified visual disturbance; Translations: [Visual disturbance] Onset: 01-30-2022 Resolved: 42-70-5230ItbgmlorWliefc of brain and nervous system (20 sources)Glial tumor of brain; 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, unspecified]Onset: 10-13-2021 Resolved: 52-66-3016NzmjlkoFosdvgrcyoon (except that caused by tuberculosis or sexually transmitted disease) (19 sources)Myelitis; Translations: [Myelitis, unspecified]Onset: 08-29-2023 10-41-5003AgbswofuEkyykqfh; including migraine (3 sources)Headache; including migraineOnset: 11-01-2021 Resolved: 54-42-4815Eyznhtz and fatigue (20 sources)Asthenia; Translations: [Weakness]Onset: EpisodicOther and unspecified benign neoplasm (20 sources)Schwannoma; Translations: [Benign neoplasm of peripheral nerves and autonomic nervous system, unspecified]Onset: 634524-93-8068UxrkoliuJwera connective tissue disease (20 sources)Muscle pain; Translations: [Myalgia, unspecified site]Onset: 229395-33-7009QkkhggenDymhl connective tissue disease (20 sources)Pain in left arm; Translations: [Pain in left arm]Onset: 12-29-2022 10-96-8610UgdaqotrUzxzl connective tissue disease (20 sources)Spasm of cervical paraspinous muscle; Translations: [Other muscle spasm]Onset: 004501-46-0503YlxzuqaxLyljk connective tissue disease (20 sources)Radicular pain; Translations: [Neuralgia and neuritis, unspecified] Onset: 289427-77-3359MjefnlikCdwxm connective tissue disease (2 sources)Arthrodesis status; Translations: [Arthrodesis status]Onset: 11-50-5192WsmpbsxnUfnaa connective tissue disease (2 sources)Other muscle spasm; Translations: [Other muscle spasm]Onset: 29-34-2896HynqgijaLhdpn gastrointestinal disorders (7 sources)Diarrhea, unspecified; Translations: [Diarrhea]Onset: 11-05-2024 46-78-0575RlwkwdxaDaxed lower respiratory disease (20 sources)Multiple nodules of lung; Translations: [Other nonspecific abnormal finding of lung field]Onset: 56-95-9408FcnwahdfOvexf lower respiratory disease (1 source)Shortness of breath; Translations: [Shortness of breath]Onset: 27-97-2207GowgxkvhNmaww nervous system disorders (20 sources)Skin sensation disturbance; Translations: [Anesthesia of skin]Onset: 563702-59-3970IgnqhzzhHqjme nervous system disorders (2 sources)Other acute postprocedural pain; Translations: [Other acute postprocedural pain]Onset: 27-78-5682OfsattkpIlsej upper respiratory disease (1 source)Nasal congestionOnset: 04-19-2021 Resolved: 51-03-3865GfwrmeznYfiubkcs codes; unclassified (1 source)Other general symptoms and signsOnset: 01-30-2022 Resolved: 13-47-6780QnpqphfrOsqarnziblan (1 source)Pressure in head R51.9Onset: 12-26-2021 Resolved: 36-36-0323Qqojntywltwq (1 source)Cough R05.9Unclassified (1 source)Acute cough R05.1Unclassified (14 sources)Onset: 10-05-2023 Resolved: Results Test NameValueInterpretationReference MlrouHqzsodun84tt [id number] faxed to Dr. HarveyNormalUniversity [facility] [place]36on 04-06-2025 36Patient called in and stated his blood thinner holding directions needs to come from his Vascular doctor in [place] - Dr. Harvey ph [phone] Shelby HospitalTelephoneon [phone] Shantel Melendez 1960 M Date Provider Department Center 04/06/2025 [facility]BOTHAM [facility] Second Fl Family History Problem Relation Age of Onset Heart disease Mother Cancer Father Stroke Paternal Grandfather Family Status - Relation Status Age at Mother Alive Father Alive Paternal Grandfather AliveNormalUniversAultman Alliance Community HospitalUS ankle/arm indiceson 60-23-6802VN ankle/arm indicesFIRELANDS REGIONAL [place] [address] Ultrasound Report Signed Patient: Shantel Melendez MR#: [id number] : 1960 Acct:[id number] Age/Sex: 64 / M ADM Date: 02/26/25 Loc: UL Room: Type: [facility] CLI Attending Dr: Griselda Hastings DO Ordering Provider: [...] Harvey MD,FACS,FSVS 02/27/2025 7:42 AM Dictation Location: [place] [address] Tech: Agueda Helm Transcribed By: [facility] 02/27/25 0742 Dictated By: Ruddy Harvey MD 02/27/25 0741 Signed By: 02/27/25 0742[facility] Physician GroupBasophils Auto (Bld) [#/Vol] Ordered By: Sofia Marker on 66-31-4696Mayajruuq (Bld) [#/Vol]0.1 10 3/uL 0.0-0.1FMercy Health Defiance HospitalBasophils/100 WBC Auto (Bld)Ordered By: Sofia Marker on 44-03-9639Wqcxdpdgx/100 WBC (Bld)0.7 %0.2-2.0[facility] OhioEosinophils/100 WBC Auto (Bld)Ordered By: Sofia Marker on 40-58-7983Jmuchxrpdie/100 WBC (Bld)1.1 %0.9-7.0[facility] OhioErythrocyte distribution width Auto (RBC) [Ratio]Ordered By: Sofia Marker on 54-43-3869Wbvcaedccoe distribution width (RBC) [Ratio]13.4 %11.0-15.0 [facility] OhioFibrin D-dimer [Presence] in Platelet poor plasma by Latex agglutinationOrdered By: Sofia Marker on 80-49-3639Ukgdvz D- dimer LA Ql (PPP)0.56 mg/L FEU<=0.59[facility] OhioComment on above:Increases in D-Dimer concentration observed withthromboembolic events can be variable due to localization,size, and age of the thrombus. Therefore, a thromboembolicevent cannot be diagnosed with certainty on the basis of thereference range. D-Dimers may also be elevated for a varietyof disorders inc luding advanced age, , coronarydisease, cancer, liver disease, infection, inflammation,hematoma, DIC, trauma, post-surgery, diabetes, thrombolyticor anticoagulant therapy, stress, and generalizedhospitalization. Globulin Calc (S) [Mass/Vol]Ordered By: Sofia Marker on 06-40-3830Ocphgeou (S) [Mass/Vol]2.5 g/dLKing'S Daughters Medical Center OhioGlomerular filtration rate (GFR) estimation in non- AmericanOrdered By: Sofia Marker on 02-18-2025 GFR/1.73 sq M.predicted among non-blacks MDRD (S/P/Bld) [Vol rate/Area] mL/min/{1.73_m2}>=60 mL/min/1.73m 2FMercy Health Defiance HospitalHematocrit Auto (Bld) [Volume fraction]Ordered By: Sofia Marker on 67-88-8038Jssocssbfm (Bld) [Volume fraction]39.7 %Low42.0-54.0[facility] Hemoglobin [Mass/volume] in BloodOrdered By: Sofia Marker on 02-18-2025 Hemoglobin (Bld) [Mass/Vol]13.8 g/dLLow14.0-18.0[facility] OhioLaboratory - Chemistry and Chemistry - challengeOrdered By: Sofia Marker on 37-32-6161Ztuyuoc [Mass/Vol]3.0 g/dLLow3.4-5.0[facility] OhioALP [Catalytic activity/Vol]68 U/W92-385CsljoobuwKing'S Daughters Medical Center Ohio ALT [Catalytic activity/Vol]18 U/I69-63HajprpgelKing'S Daughters Medical Center OhioAST [Catalytic activity/Vol]11 U/LXtc49-59PbpwcpwbmKing'S Daughters Medical Center OhioBilirubin [Mass/Vol]0.8 mg/dL0.2-1.0[facility] OhioCalcium [Mass/Vol]9.5 mg/dL8.5-10.1FMercy Health Defiance HospitalChloride [Moles/Vol]108 mmol/L Gqtm73-164PfhxrntmrKing'S Daughters Medical Center OhioCO2 [Moles/Vol]27.5 mmol/L21.0-32.0 [facility] OhioCreatinine [Mass/Vol]0.87 mg/dL0.70-1.30 [facility] OhioGFR/1.73 sq M.predicted MDRD (S/P/Bld) [Vol rate/Area]mL/min/{1.73_m2}>=60 mL/min/1.73m 2FMercy Health Defiance Hospital Glucose [Mass/Vol]78 mg/eX85-192QsgyqrjmiKing'S Daughters Medical Center OhioPotassium [Moles/Vol]4.1 mmol/L3.5-5.1FMercy Health Defiance HospitalProtein [Mass/Vol] 5.5 g/dLLow6.4-8.2FSelect Medical Cleveland Clinic Rehabilitation Hospital, Edwin Shawodium [Moles/Vol]144 mmol/L 136-145[facility] OhioUrea nitrogen [Mass/Vol]11.0 mg/dL 7.0-18.0[facility] OhioUrea nitrogen/Creatinine [Mass ratio] 12.6 mg/mgKing'S Daughters Medical Center OhioLaboratory - Hematology and Cell countsOrdered By: Sofia Marker on 40-89-2854Rgqomroe granulocytes/100 WBC (Bld)0.3 %0.0-0.5FMercy Health Defiance HospitalLeukocytes [#/volume] corrected for nucleated erythrocytes in Blood by Automated counOrdered By: Sofia Marker on 34-30-0626SKG corrected for nucl RBC Auto (Bld) [#/Vol]7.4 10 3/uL4.0-11.0[facility] OhioLymphocytes Auto (Bld) [#/Vol] Ordered By: Sofia Marker on 73-61-9920Xtljtubrdpp (Bld) [#/Vol]2.1 10 3/uL 1.2-3.8[facility] OhioLymphocytes/100 WBC Auto (Bld)Ordered By: Sofia Marker on 26-48-0293Wbwjpbhvizu/100 WBC (Bld)28.8 %20.5-60.0 [facility] CenterH Auto (RBC) [Entitic mass]Ordered By: Sofia Marker on 63-36-1257ZXH (RBC) [Entitic mass]32.5 pg25.9-34.0[facility] OhioMCHC Auto (RBC) [Mass/Vol]Ordered By: Sofia Marker on 89-12-7124UIDU (RBC) [Mass/Vol]34.8 g/dL29.9-35.2FMercy Health Defiance HospitalMCV Auto (RBC) [Entitic vol]Ordered By: Sofia Marker on 92-40-9994ZPB (RBC) [Entitic vol]93.4 fL80.0-94.0[facility] OhioMonocytes Auto (Bld) [#/Vol]Ordered By: Sofia Marker on 35-13-2019Qkcmbntgr (Bld) [#/Vol]0.4 10 3/uL0.3-0.8[facility] OhioMonocytes/100 WBC Auto (Bld)Ordered By: Sofia Marker on 89-59-7784Kfpiaqirj/100 WBC (Bld)5.6 % 1.7-12.0[facility] OhioNeutrophils Auto (Bld) [#/Vol]Ordered By: Sofia Marker on 88-67-3032Zyyvvvmhhlf (Bld) [#/Vol]4.7 10 3/uL1.4-6.5 [facility] OhioNeutrophils/100 WBC Auto (Bld)Ordered By: Sofia Marker on 29-88-4020Aushqdspurc/100 WBC (Bld)63.5 %43.0-75.0[facility] OhioNo Panel InformationOrdered By: Sofia Marker on 12-71-9715Qutrswqbvwo # (Auto)0.1 10 3/uL0.0-0.7FMercy Health Defiance HospitalImmature Granulocyte # (Auto)0.02 10 3/uL0.00-0.03[facility] OhioTroponin I High Xeqhalampwf47.3 pg/mL4.0-76.1FMercy Health Defiance HospitalComment on above:CUT-OFF POINTS HAVE BEEN ESTABLISHED BASED ON THE FOURTHUNIVERSAL DEFINITION OF MYOCARDIAL INFARCTION. THE UPPERREFERENCE LIMIT (URL) OF TROPONIN, DEFINED THE 99THPERCENTILE OF cTnI DISTRIBUTION IN A REFERENCE POPULATION,HAS BEEN CONFIRMED THE DECISION THRESHOLD FOR MIDIAGNOSIS.99TH PERCENTILE = 76.2 PG/MLNOTE: HIGH-SENSITIVITY TROPONIN ASSAY IS NOT INTENDED TO BEUSED IN ISOLATION BUT SHOULD BE INTERPRETED IN CONJUNCTIONWITH OTHER DIAGNOSTIC AND CLINICAL INFORMATION.Platelet mean volume Auto (Bld) [Entitic vol]Ordered By: Sofia Marker on 39-39-1355Snmsprks mean volume (Bld) [Entitic vol]11.4 fL9.5-13.5FMercy Health Defiance Hospital Platelets Auto (Bld) [#/Vol]Ordered By: Sofia Marker on 45-59-4582Iolamoelj (Bld) [#/Vol]246 10 3/kP592-287XznwdigjiKing'S Daughters Medical Center OhioRBC Auto (Bld) [#/Vol]Ordered By: Sofia Marker on 79-72-7287CSX (Bld) [#/Vol]4.25 10 6/uLLow 4.70-6.10Ohio[facility] Health Centererum or plasma albumin/globulin mass ratioOrdered By: Sofia Marker on 14-00-0314Tcqtluw/Globulin [Mass ratio]1.2 {ratio}[facility] Health Centererum or plasma anion gap determination Ordered By: Sofia Marker on 25-04-7217Ntdth gap [Moles/Vol]12.6 mmol/L [facility] [place]36on 62-20-699746Izrtrqp scheduled for 03/24/25 @ 10:30amNSamaritan North Health Center36LVM for pt to call clinic to schedule consult with Dr. [place] to discuss SCS placement. Imaging requested. Please transfer pt to pre reg after call. Please inform adjusto writer operator when scheduled. [employer] reps will need notified.Normal St. Elizabeth HospitalTelephoneon [phone] Shantel Melendez 1960 M Date Provider Department Center 02/13/2025 [facility] Second Fl No family history on fileNormalUniversity [facility] OhioActivated partial thromboplastin time (aPTT) in platelet poor plasma by coagulation a Ordered By: Sarina Ramsey on 83-10-4400uMUO Coag (PPP) [Time]24.2 s 22.3-36.2FMercy Health Defiance HospitalBasophils Auto (Bld) [#/Vol]Ordered By: Andrius Flowersraitis on 55-10-2951Iekiaaljw (Bld) [#/Vol]0.0 10 3/uL0.0-0.1 [facility] OhioBasophils/100 WBC Auto (Bld)Ordered By: Andrius Gipaoraitis on 78-60-5473Adxnvvhjx/100 WBC (Bld)0.2 %0.2-2.0[facility] OhioEosinophils/100 WBC Auto (Bld)Ordered By: Andrius Kristieraitis on 15-76-2535Zxgkhqqjsha/100 WBC (Bld)0.1 %Low0.9-7.0[facility] OhioErythrocyte distribution width Auto (RBC) [Ratio]Ordered By: Andrius Kristieraitis on 20-35-8778Dvhjkykowic distribution width (RBC) [Ratio]14.1 % 11.0-15.0[facility] OhioGlomerular filtration rate (GFR) estimation in non- AmericanOrdered By: Sarina Ramsey on 01-27-2025 GFR/1.73 sq M.predicted among non-blacks MDRD (S/P/Bld) [Vol rate/Area] mL/min/{1.73_m2}>=60 mL/min/1.73m 2FMercy Health Defiance HospitalHematocrit Auto (Bld) [Volume fraction]Ordered By: Sarina Ramsey on 01-27-2025 Hematocrit (Bld) [Volume fraction]38.0 %Low42.0-54.0[facility] OhioHemoglobin [Mass/volume] in BloodOrdered By: Sarina Ramsey on 73-89-4135Tzxmgujkvq (Bld) [Mass/Vol]13.0 g/dLLow14.0-18.0[facility] OhioINR in Platelet poor plasma by Coagulation assayOrdered By: Sarina Ramsey on 07-14-6533MYX Coag (PPP) [Relative time]1.09 {INR} [facility] OhioComment on above:DESIRED INR:2.0-3.0 CONDITIONS NOT LISTED BELOW2.5-3.5 FOR PROSTHETIC HEART VALVE REPLACEMENT2.5-3.5 RECURRENT THROMBOSISLaboratory - Chemistry and Chemistry - challengeOrdered By: Sarina Ramsey on 03-83-9131Qolsrym [Mass/Vol]9.2 mg/dL8.5-10.1FMercy Health Defiance HospitalChloride [Moles/Vol]106 mmol/O63-943UrnivspetKing'S Daughters Medical Center OhioCO2 [Moles/Vol]28.7 mmol/L21.0-32.0[facility] Creatinine [Mass/Vol]0.81 mg/dL0.70-1.30[facility] GFR/1.73 sq M.predicted MDRD (S/P/Bld) [Vol rate/Area]mL/min/{1.73_m2}>=60 mL/min/1.73m 2FMercy Health Defiance HospitalGlucose [Mass/Vol]89 mg/zP86-078 [facility] OhioPotassium [Moles/Vol]3.7 mmol/L3.5-5.1FSelect Medical Cleveland Clinic Rehabilitation Hospital, Edwin Shawodium [Moles/Vol]138 mmol/Q457-629IbynffzpgKing'S Daughters Medical Center OhioUrea nitrogen [Mass/Vol]17.0 mg/dL7.0-18.0[facility] OhioUrea nitrogen/Creatinine [Mass ratio]21.0 mg/mgKing'S Daughters Medical Center OhioLaboratory - Hematology and Cell countsOrdered By: Sarina Ramsey on 46-25-5191Mnlmnmmp granulocytes/100 WBC (Bld)0.2 %0.0-0.5FMercy Health Defiance HospitalLeukocytes [#/volume] corrected for nucleated erythrocytes in Blood by Automated counOrdered By: Andrius Giedraitis on 06-58-5310BAG corrected for nucl RBC Auto (Bld) [#/Vol]8.2 10 3/uL4.0-11.0 [facility] OhioLymphocytes Auto (Bld) [#/Vol]Ordered By: Andrius Giedraitis on 16-70-8204Udbnifpchvt (Bld) [#/Vol]2.4 10 3/uL1.2-3.8 [facility] OhioLymphocytes/100 WBC Auto (Bld)Ordered By: Andrius Giedraitis on 83-84-0954Vpxnalfipev/100 WBC (Bld)29.3 %20.5-60.0 [facility] OhioMCH Auto (RBC) [Entitic mass]Ordered By: Andrius Giedraitis on 85-04-2533IIW (RBC) [Entitic mass]32.1 pg25.9-34.0 [facility] OhioMCHC Auto (RBC) [Mass/Vol]Ordered By: Andrius Giedraitis on 82-53-4411YZDQ (RBC) [Mass/Vol]34.2 g/dL29.9-35.2FMercy Health Defiance HospitalMCV Auto (RBC) [Entitic vol]Ordered By: Andrius Giedraitis on 28-26-6154NGJ (RBC) [Entitic vol]93.8 fL80.0-94.0[facility] OhioMonocytes Auto (Bld) [#/Vol]Ordered By: Andrius Giedraitis on 62-14-2059Mzxxsipun (Bld) [#/Vol]0.4 10 3/uL0.3-0.8[facility] OhioMonocytes/100 WBC Auto (Bld)Ordered By: Andrius Giedraitis on 66-89-4799Ixudirwym/100 WBC (Bld)5.0 %1.7-12.0[facility] OhioNeutrophils Auto (Bld) [#/Vol]Ordered By: Andrius Giedraitis on 97-26-3608Ymtkdmcfsyl (Bld) [#/Vol]5.4 10 3/uL1.4-6.5FMercy Health Defiance HospitalNeutrophils/100 WBC Auto (Bld)Ordered By: Andrius Giedraitis on 01-27-2025 Neutrophils/100 WBC (Bld)65.2 %43.0-75.0[facility] OhioNo Panel InformationOrdered By: Andrius Giedraitis on 76-23-1369Uesqtoqprxt # (Auto)0.0 10 3/uL0.0-0.7FMercy Health Defiance HospitalImmature Granulocyte # (Auto)0.02 10 3/uL0.00-0.03[facility] OhioPlatelet mean volume Auto (Bld) [Entitic vol]Ordered By: Andrius Giedraitis on 67-13-1072Pcteppsw mean volume (Bld) [Entitic vol]11.4 fL9.5-13.5FMercy Health Defiance Hospital Platelets Auto (Bld) [#/Vol]Ordered By: Andrius Giedraitis on 01-27-2025 Platelets (Bld) [#/Vol]214 10 3/xH344-326RabmpvsbpKing'S Daughters [facility] Center [place] Prothrombin time (PT)Ordered By: Andrius Giedraitis on 11-72-6515OX Coag (PPP) [Time]11.5 s9.0-11.6FMercy Health Defiance HospitalRBC Auto (Bld) [#/Vol] Ordered By: Andrius Giedraitis on 98-71-9427ZMK (Bld) [#/Vol]4.05 10 6/uLLow 4.70-6.10OhioHealth Nelsonville Health Centererum or plasma anion gap determinationOrdered By: Andrius Giedraitis on 26-08-7093Pbtfe gap [Moles/Vol] 7.0 mmol/LFMercy Health Defiance HospitalNo Panel Informationon 66-89-5177JDHI HealthcareNOMO HealthcareXR CERVICAL SPINE 2-3 VIEWSon 92-32-1306DC CERVICAL SPINE 2-3 VIEWSCervical spine. HISTORY: Cervical fusion 1 year ago. [...] degenerative change cervical spine. ELECTRONICALLY SIGNED BY: José Miguel ThompsonNot AvailableX-ray report Ordered By: Yung Pozo on 38-20-5381Fnajx reportFIRSAMARITAN [place] [address] XRay Report Signed Patient: Shantel Melendez MR#: [id number] : 1960 Acct:[id number] Age/Sex: 64 / M ADM Date: 5 Loc: XDSHC Room: Type: [facility] Attending Dr: Griselda Hastings DO Copies [...] D.OMaria R 2024 4:30 PM Dictation Location: [place] [address] Transcribed By: [facility] 11/24/24 1630 Dictated By: Yung Pozo Jr, DO 11/24/24 1630 Signed By: 11/24/24 1630 [facility] OhioXR chest 2V*on 51-49-1536EX chest 2V*[facility] Main [address] [address] XRay Report Signed Patient: Shantel Melendez MR#: [id number] : 1960 Acct:[id number] Age/Sex: 64 / M ADM Date: 11/24/24 Loc: [facility] Room: Type: [facility] Attending Dr: Griselda Hastings DO [...] Jr., D.O. 2024 4:30 PM Dictation Location: [place] [address] Transcribed By: [facility] 11/24/24 1630 Dictated By: Yung Pozo Jr, DO 11/24/24 1630 Signed By: 11/24/24 1630[facility] Physician GroupInfluenza virus B Ag [Presence] in Upper respiratory specimen by Rapid immunoassayon 33-74-1207LJHHI Ag IA.rapid Ql (Nph)Influenza virus B Ag [Presence] in Upper respiratory specimen by Rapid immunoassayKing'S Daughters Medical Center OhioFLUBV Ag IA.rapid Ql (Nph)Negative [facility] OhioNo Panel Informationon 03-82-0568Lzbzygmmv Type A (Rapid)NegativeKing'S Daughters Medical Center OhioPO SARS CoV-2 Antigen NegativeKing'S Daughters Medical Center OhioNo Panel InformationOrdered By: Griselda Hastings on 54-86-9215Ubwbb Strep (POC)[facility] OhioRSV (POC) [facility] OhioCNOVSPon 58-93-9281HGLGVLBqvtr (SP) Office ([place]) SHANTEL MELENDEZ ([id number]) 1960 M Date Time Provider Department 11/07/24 9:20 AM RACQUEL COLE During your visit today, we recorded the following information about you: Temperature Pulse Respiration Blood pressure 97.5 degrees 72/minute 16/minute 115/89 Weight Height 79.3 kg 1.706 m Racquel Cole MD 11/07/2024 11:09 AM Signed NAME: Shantel Melendez CLINIC NO.: [id number] DATE OF SERVICE: November 07, 2024 (Curtis) Some elements in this clinic note that are critical to medical decision making have been carefully reviewed and included from a prior clinic note dated: November 02, 2023 (Curtis) Referring Provider: Griselda Hastings, Additional Clinicians involved in Shantel Melendez's care: Dr Kimberly Nichole ENT, Dr. 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 10/05/2021 - MRI Brain: [facility] There is T2 and [...] This may represent (more content not included)... [facility] Panel InformationOrdered By: Nathanael Arango on 20-05-3572Yvlydynpmnhqy Pathology TestSee commentKing'S Daughters Medical Center OhioComment on above:See report. Scanned copy available in EMR.Pathology Request for Lab Corpon 76-65-2435Mkfcgalen Request for Lab CorpNormBaptist Medical Center Physician GroupComment on above:Order Comment: GI SPECIMENResult Comment: See report. Scanned copy available in EMR. PERFORMED BY: [place] [address] PATHOLOGIST FITNESS SPECIALIST EDUARDO HOLLINGSWORTH M.D.Performed By: #### PATH TO [facility] #### [place] [address] USABasophils Auto (Bld) [#/Vol]on 96-13-7999Igitombsu (Bld) [#/Vol]Automated basophil count<0.11[facility] OhioBasophils (Bld) [#/Vol]0.06 10*3/uL<0.11[facility] OhioBasophils/100 WBC Auto (Bld)on 51-41-3235Yeltgrzzb/100 WBC (Bld)Automated basophil %[facility] OhioBasophils/100 WBC (Bld)1.0 %[facility] OhioBlood manual differential comment interpretation narrativeon 11-03-2024 Manual differential comment Curtis (Bld) [Interp]Blood manual differential comment interpretation narrativeKing'S Daughters Medical Center OhioManual differential comment Curtis (Bld) [Interp]AutoKing'S Daughters Medical Center OhioCBC W Auto Differential panel (Bld)on 95-65-3173Khstleegk (Bld) [#/Vol]0.06 10*3/uLNINF Simon ClinicBasophils/100 WBC (Bld)1 %[facility], Edwin ShawDifferential cell count method Nom (Bld)AutoCleveland ClinicEosinophils (Bld) [#/Vol]0.16 10*3/uL NINFCleveland ClinicEosinophils/100 WBC (Bld)2.7 %[facility] Hospital, Edwin ShawErythrocyte distribution width (RBC) [Ratio]14.6 %11.5 - 15.0 %[facility] Hospital, Edwin ShawHematocrit (Bld) [Volume fraction]40 %39.0 - 51.0 %[facility] Hospital, Edwin ShawHemoglobin (Bld) [Mass/Vol]13.6 g/dL13.0 - 17.0 g/dLSelect Medical Cleveland Clinic Rehabilitation Hospital, Edwin ShawImmature granulocytes (Bld) [#/Vol]NINFCleveland ClinicImmature granulocytes/100 WBC (Bld)0.2 %[facility] Hospital, Edwin ShawLymphocytes (Bld) [#/Vol]2.73 10*3/uLSelect Medical Cleveland Clinic Rehabilitation Hospital, Edwin ShawLymphocytes/100 WBC (Bld)45.3 %[facility] HospitalH (RBC) [Entitic mass]31.9 pg26.0 - 34.0 pg [facility] HospitalHC (RBC) [Mass/Vol]34 g/dL30.5 - 36.0 g/dLOhio Valley HospitalV (RBC) [Entitic vol]93.9 fL80.0 - 100.0 fLCleveland ClinicMonocytes (Bld) [#/Vol] 0.4 10*3/uLNINFSelect Medical Cleveland Clinic Rehabilitation Hospital, Edwin ShawMonocytes/100 WBC (Bld)6.6 %[facility] Neutrophils (Bld) [#/Vol]2.67 10*3/uLSelect Medical Cleveland Clinic Rehabilitation Hospital, Edwin ShawNeutrophils/100 WBC (Bld) 44.2 %[facility], Edwin ShawNucleated RBC (Bld) [#/Vol]NINFCleveland ClinicNucleated RBC/100 WBC (Bld) [Ratio]0 %/100 WBCSelect Medical Cleveland [facility] ShawPlatelet mean volume (Bld) [Entitic vol]11 fL9.0 - 12.7 fLCleveland ClinicPlatelets (Bld) [#/Vol]281 10*3/uLArgos ClinicRBC (Bld) [#/Vol]4.26 10*6/uL4.20 - 6.00 m/[facility] AkronWBC (Bld) [#/Vol]6.03 10*3/[facility] HospitalBasophils (Bld) [#/Vol]0.06 10*3/uLNormal<0.11CLake [facility] on above: Order Comment: Specimen Type: BLOOD SPECIMEN Ordering Facility: [facility] Address: [address] [place], [place] [address]Performed By: #### 00834-2 #### [facility] CLIA [id number] [address] [place], [place] [address]Qnxcodnuw/100 WBC (Bld)1.0 %[facility] Comment on above:Order Comment: Specimen Type: BLOOD SPECIMEN Ordering Facility: [facility] Address: [address] [place], [place] [address]Performed By: #### 85327-2 #### [facility] CLIA [id number] [address] [place] [address] 86571Ujcnppbwujik cell count method Nom (Bld)AutoNormalCLake County Memorial Hospital - West on above:Order Comment: Specimen Type: BLOOD SPECIMEN Ordering Facility: [facility] Address: [address] [place], [place] [address]Performed By: #### 63308-1 #### [facility] CLIA [id number] [address] [place], [place] [address]Iwmdzqmpqgu (Bld) [#/Vol]0.16 10*3/uLNormal<0.46[facility] on above:Order Comment: Specimen Type: BLOOD SPECIMEN Ordering Facility: [facility] Address: [address] [place], [place] [address]Performed By: #### 95849-4 #### [facility] CLIA [id number] [address] [place], [place] [address]Bfqzsplnrfe/100 WBC (Bld)2.7 %NormalSouthern [place] Medical Center Comment on above:Order Comment: Specimen Type: BLOOD SPECIMEN Ordering Facility: [facility] Address: [address] [place], [place] [address]Performed By: #### 30756-4 #### [facility] CLIA [id number] [address] [place], [place] [address]Jrgyglaeiyq distribution width (RBC) [Ratio]14.6 %Normal 11.5-15.0[facility] on above:Order Comment: Specimen Type: BLOOD SPECIMEN Ordering Facility: [facility] Address: [address] [place], [place] [address]Performed By: #### 78000-5 #### [facility] CLIA [id number] [address] [place] [address] 82208Fqnrviggqg (Bld) [Volume fraction]40.0 %Pzrujs92.0-51.0 [facility] on above:Order Comment: Specimen Type: BLOOD SPECIMEN Ordering Facility: [facility] Address: [address] [place], [place] [address]Performed By: #### 97925-6 #### [facility] CLIA [id number] [address] [place] [address] 46018Lgqzrcjhww (Bld) [Mass/Vol]13.6 g/pBIbfwak91.0-17.0[facility] on above:Order Comment: Specimen Type: BLOOD SPECIMEN Ordering Facility: [facility] Address: [address] [place], [place] [address]Performed By: #### 80940-6 #### [facility] CLIA [id number] [address] [place] [address]Gwcfokgo granulocytes (Bld) [#/Vol]10*3/uLNormal<0.10[facility] on above:Order Comment: Specimen Type: BLOOD SPECIMEN Ordering Facility: [facility] Address: [address] [place], [place] [address]Performed By: #### 59964-8 #### [facility] CLIA [id number] [address] [place] [address]Kqmkcbrl granulocytes/100 WBC (Bld)0.2 %NormalSumma Health on above:Order Comment: Specimen Type: BLOOD SPECIMEN Ordering Facility: [facility] Address: [address] [place], [place] [address]Performed By: #### 24144-1 #### [facility] CLIA [id number] [address] [place] [address] 39690Slyxicghgsw (Bld) [#/Vol]2.73 10*3/uLNormal1.00-4.00[facility] on above:Order Comment: Specimen Type: BLOOD SPECIMEN Ordering Facility: [facility] Address: [address] [place], [place] [address]Performed By: #### 23013-7 #### [facility] CLIA [id number] [address] [place] [address]Liovvrxrliy/100 WBC (Bld)45.3 %NormalSumma Health on above:Order Comment: Specimen Type: BLOOD SPECIMEN Ordering Facility: [facility] Address: [address] [place], [place] [address]Performed By: #### 31388-0 #### [facility]USA[facility] CLIA [id number] [address] [place] [address] 27234XOE (RBC) [Entitic mass]31.9 ybSstqup98.0-34.0[facility] on above:Order Comment: Specimen Type: BLOOD SPECIMEN Ordering Facility: [facility] Address: [address] [place], [place] [address]Performed By: #### 92121-8 #### [facility] CLIA [id number] [address] [place] [address] 28942OVEU (RBC) [Mass/Vol]34.0 g/qVUoclam27.5-36.0[facility] on above:Order Comment: Specimen Type: BLOOD SPECIMEN Ordering Facility: [facility] Address: [address] [place], [place] [address]Performed By: #### 98084-1 #### [facility] CLIA [id number] [address] [place], [place] [address]YUF (RBC) [Entitic vol]93.9 jPXxwcmo27.0-100.0[facility] on above:Order Comment: Specimen Type: BLOOD SPECIMEN Ordering Facility: [facility] Address: [address] [place], [place] [address]Performed By: #### 42096-6 #### [facility] CLIA [id number] [address] [place], [place] [address]Zybxsmbea (Bld) [#/Vol]0.40 10*3/uLNormal<0.87[facility] on above:Order Comment: Specimen Type: BLOOD SPECIMEN Ordering Facility: [facility] Address: [address] [place], [place] [address]Performed By: #### 14559-8 #### [facility] CLIA [id number] [address] [place] [address] 32427Ctinirocv/100 WBC (Bld)6.6 %NormalSouthern [place] Medical Center Comment on above:Order Comment: Specimen Type: BLOOD SPECIMEN Ordering Facility: [facility] Address: [address] [place], [place] [address]Performed By: #### 93930-2 #### [facility] CLIA [id number] [address] [place] [address]Vftqhnrbkvm (Bld) [#/Vol]2.67 10*3/uLNormal1.45-7.50[facility] on above:Order Comment: Specimen Type: BLOOD SPECIMEN Ordering Facility: [facility] Address: [address] [place], [place] [address]Performed By: #### 25266-4 #### [facility] CLIA [id number] [address] [place] [address] 03566Wjyzpyhfwwh/100 WBC (Bld)44.2 %NormalSumma Health on above:Order Comment: Specimen Type: BLOOD SPECIMEN Ordering Facility: [facility] Address: [address] [place], [place] [address]Performed By: #### 00807-6 #### [facility] CLIA [id number] [address] [place], [place] [address]Chpkcxvzr RBC (Bld) [#/Vol]10*3/uLNormal<0.01[facility] on above:Order Comment: Specimen Type: BLOOD SPECIMEN Ordering Facility: [facility] Address: [address] [place], [place] [address]Performed By: #### 82453-9 #### [facility] CLIA [id number] [address] [place], [place] [address]Btllohakj RBC/100 WBC (Bld) [Ratio]0.0 /100 WBCNormalCLake County Memorial Hospital [facility] on above:Order Comment: Specimen Type: BLOOD SPECIMEN Ordering Facility: [facility] Address: [address] [place], [place] [address]Performed By: #### 01987-1 #### [facility] CLIA [id number] [address] [place], [place] [address]Fcktozjw mean volume (Bld) [Entitic vol]11.0 fLNormal9.0-12.7 [facility] on above:Order Comment: Specimen Type: BLOOD SPECIMEN Ordering Facility: [facility] Address: [address] [place], [place] [address]Performed By: #### 47017-4 #### [facility] CLIA [id number] [address] [place], [place] [address]Meabyreff (Bld) [#/Vol]281 10*3/nXPhjqid752-730YqruzlalwSumma Health on above:Order Comment: Specimen Type: BLOOD SPECIMEN Ordering Facility: [facility] Address: [address] [place], [place] [address]Performed By: #### 08932-8 #### [facility] CLIA [id number] [address] [place], [place] [address]DIV (Bld) [#/Vol]4.26 10*6/uLNormal4.20-6.00[facility] on above:Order Comment: Specimen Type: BLOOD SPECIMEN Ordering Facility: [facility] Address: [address] [place], [place] [address]Performed By: #### 01708-7 #### [facility] CLIA [id number] [address] [place], [place] [address]OFA (Bld) [#/Vol]6.03 10*3/uLNormal3.70-11.00[facility] on above:Order Comment: Specimen Type: BLOOD SPECIMEN Ordering Facility: 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 - clotrimazole-betamethasone (LOTRISONE) cream - clopidogrel (PLAVIX) 75 mg [...] hours. Encounter Status:Closed by RACQUEL COLE on 11/03/24[facility] CenterCT CHEST W IVCONon [id number] CHEST W IVCON* * *Final Report* * * DATE OF EXAM: Nov 03 2024 8:41AM [facility] 0539 - CT CHEST W [...] any questions regarding this interpretation, please call [phone]. If you are unable to reach us at the number above, please feel free to contact [facility] eRadiology at [phone]. [id number] Ohio Medical CenterCT Chest W contrast Tristin 12-44-1627LLSBNVAGQS: 1. No CT evidence of new metastatic [...] any questions regarding this interpretation, please call [phone]. If you are unable to reach us at the number above, please feel free to contact [facility] eRadiology at [phone].DIVISION OF RADIOLOGY* * *Final Report* * * DATE OF EXAM: Nov 03 2024 8:41AM [facility] 0539 - CT CHEST W [...] Localizer images: No additional findings. DIVISION OF RADIOLOGYProvider, [facility] [place] - 11/03/2024 * * *Final Report* * * DATE OF EXAM: Nov 03 2024 8:41AM [facility] 0539 - CT CHEST W [...] Date/Time: Nov 03 2024 12:08P Dictated by: AJNEY FOURNIER MD This examination was interpreted and the report reviewed and electronically signed by: JANEY FOURNIER MD on Nov 03 2024 12:22PM EST Thank you for allowing us to participate in the care of your patient. Should there be any questions regarding this interpretation, please call [phone]. If you are unable to reach us at the number above, please feel free to contact [facility] eRadiology at [phone]. [facility]CT N[facility]K SOFT TISSUE W IVCONon [id number] NECK SOFT TISSUE W IVCON* * *Final Report* * * DATE OF EXAM: Nov 03 2024 8:41AM [facility] 0013 - CT NECK SOFT [...] 1. No evidence of abnormal lymph nodes. [email or web address] ors.[email or web address] Transcribe Date/Time: Nov 03 2024 8:53A Dictated by: BENJAMIN AL MD This examination was interpreted and the report reviewed and electronically signed by: BENJAMIN AL MD on Nov 03 2024 9:01AM EST Thank you for allowing us to participate in the care of your patient. Should there be any questions regarding this interpretation, please call [phone]. If you are unable to reach us at the number above, please feel free to contact [facility] eRadiology at [phone]. [id number] Ohio Medical CenterCT Neck W contrast Tristin 85-43-7597FPUNQTXBPA: Primary: Category 1. Expected post-treatment changes in the neck without evidence of recurrent disease in the primary site. Neck: Category 1. No evidence of abnormal lymph nodes. [email or web address] [email or web address] Transcribe Date/Time: Nov 03 2024 8:53A Dictated by: BENJAMIN AL MD This examination was interpreted and the report reviewed and electronically signed by: BENJAMIN AL MD on Nov 03 2024 9:01AM EST Thank you for allowing us to participate in the care of your patient. Should there be any questions regarding this interpretation, please call [phone]. If you are unable to reach us at the number above, please feel free to contact [facility] eRadiology at [phone].DIVISION OF RADIOLOGY* * *Final Report* * * DATE OF EXAM: Nov 03 2024 8:41AM [facility] 0013 - CT NECK SOFT [...] or mass. Other: Not applicable. DIVISION OF RADIOLOGYProvider, [facility] [place] - 11/03/2024 * * *Final Report* * * DATE OF EXAM: Nov 03 2024 8:41AM [facility] 0013 - CT NECK SOFT [...] 1. No evidence of abnormal lymph nodes. [email or web address]-Xdlsxhyo ors.[email or web address] Transcribe Date/Time: Nov 03 2024 8:53A Dictated by: BENJAMIN AL MD This examination was interpreted and the report reviewed and electronically signed by: BENJAMIN AL MD on Nov 03 2024 9:01AM EST Thank you for allowing us to participate in the care of your patient. Should there be any questions regarding this interpretation, please call [phone]. If you are unable to reach us at the number above, please feel free to contact [facility] at [phone]. [facility] Neck W contrast IVOrdered By: Ccf Provider on 11-03-2024 [facility] ShawEosinophils/100 WBC Auto (Bld)on 33-63-0435Xxevyqpkviu/100 WBC (Bld)Automated eosinophil %[facility] OhioEosinophils/100 WBC (Bld)2.7 %[facility] OhioErythrocyte distribution width Auto (RBC) [Ratio]on 71-22-2806Swknaixoixz distribution width (RBC) [Ratio] Erythrocyte distribution width [Ratio] by Automated count11.5-15.0[facility] OhioErythrocyte distribution width (RBC) [Ratio]14.6 % 11.5-15.0[facility] OhioHematocrit Auto (Bld) [Volume fraction]on 05-78-9637Kfhwoppixi (Bld) [Volume fraction]Hematocrit [Volume Fraction] of Blood by Automated count39.0-51.0[facility] Hematocrit (Bld) [Volume fraction]40.0 %39.0-51.0[facility] OhioHemoglobin [Mass/volume] in Bloodon 00-47-4329Whnspsfcvd (Bld) [Mass/Vol] Hemoglobin [Mass/volume] in Blood13.0-17.0[facility] Hemoglobin (Bld) [Mass/Vol]13.6 g/dL13.0-17.0[facility] Laboratory - Hematology and Cell countson 94-55-7769Egrfkydaklv (Bld) [#/Vol] 0.16 10*3/uL<0.46[facility] OhioImmature granulocytes/100 WBC (Bld)0.2 %[facility] OhioLeukocytes [#/volume] corrected for nucleated erythrocytes in Blood by Automated counon 46-12-1904VQO corrected for nucl RBC Auto (Bld) [#/Vol]Leukocytes [#/volume] corrected for nucleated erythrocytes in Blood by Automated coun3.70-11.00[facility] OhioWBC corrected for nucl RBC Auto (Bld) [#/Vol]6.03 k/uL3.70-11.00[facility] OhioLymphocytes Auto (Bld) [#/Vol]on 81-60-4052Usbpiefcddu (Bld) [#/Vol]Lymphocytes [#/volume] in Blood by Automated count1.00-4.00 [facility] OhioLymphocytes (Bld) [#/Vol]2.73 10*3/uL1.00-4.00 [facility] OhioLymphocytes/100 WBC Auto (Bld)on 11-03-2024 Lymphocytes/100 WBC (Bld)Lymphocytes/100 leukocytes in Blood by Automated count [facility] OhioLymphocytes/100 WBC (Bld)45.3 %[facility] Auto (RBC) [Entitic mass]on 82-91-2412MWO (RBC) [Entitic mass]MCH [Entitic mass] by Automated count26.0-34.0[facility] (RBC) [Entitic mass]31.9 pg26.0-34.0[facility] OhioMCHC Auto (RBC) [Mass/Vol]on 04-13-5227HIXY (RBC) [Mass/Vol]MCHC [Mass/volume] by Automated count30.5-36.0[facility] CenterHC (RBC) [Mass/Vol]34.0 g/dL30.5-36.0[facility] OhioMCV Auto (RBC) [Entitic vol]on 90-67-3111HDJ (RBC) [Entitic vol]MCV [Entitic volume] by Automated count80.0-100.0[facility] OhioMCV (RBC) [Entitic vol]93.9 fL80.0-100.0[facility] OhioMonocytes Auto (Bld) [#/Vol]on 44-94-0961Vhooklwsm (Bld) [#/Vol]Automated blood monocyte count<0.87 [facility] OhioMonocytes (Bld) [#/Vol]0.40 10*3/uL<0.87 [facility] OhioMonocytes/100 WBC Auto (Bld)on 11-03-2024 Monocytes/100 WBC (Bld)Automated monocyte %[facility] Monocytes/100 WBC (Bld)6.6 %[facility] OhioNeutrophils Auto (Bld) [#/Vol]on 48-21-1088Fjrgmmuselh (Bld) [#/Vol]Neutrophils [#/volume] in Blood by Automated count1.45-7.50[facility] OhioNeutrophils (Bld) [#/Vol]2.67 10*3/uL1.45-7.50[facility] Neutrophils/100 WBC Auto (Bld)on 25-08-7132Djjbuemaevq/100 WBC (Bld)Automated neutrophil %[facility] OhioNeutrophils/100 WBC (Bld)44.2 % [facility] OhioNo Panel Informationon 34-76-0332Jyjxlplap Study observation (narrative)[facility] Granulocyte # (Auto)<0.03 k/uL<0.10[facility] OhioNucleated RBC Auto (Bld) [#/Vol]on 87-46-6220Aadiytwqx RBC (Bld) [#/Vol]Nucleated erythrocytes [#/volume] in Blood by Automated count<0.01[facility] OhioNucleated RBC (Bld) [#/Vol]10*3/uL<0.01[facility] OhioNucleated erythrocytes [Presence] in Blood by Automated counton 96-44-1142Vnrzqzanw RBC Auto Ql (Bld) Nucleated erythrocytes [Presence] in Blood by Automated countKing'S Daughters Medical Center OhioNucleated RBC Auto Ql (Bld)0.0 /100{WBC}[facility] OhioPlatelet mean volume Auto (Bld) [Entitic vol]on 87-49-5963Nqcsavat mean volume (Bld) [Entitic vol]Platelet mean volume [Entitic volume] in Blood by Automated count9.0-12.7FMercy Health Defiance HospitalPlatelet mean volume (Bld) [Entitic vol]11.0 fL9.0-12.7FMercy Health Defiance HospitalPlatelets Auto (Bld) [#/Vol]on 24-48-9988Pceeekuyw (Bld) [#/Vol]Platelets [#/volume] in Blood by Automated yvnzz125-793PifpdeyteKing'S Daughters Medical Center OhioPlatelets (Bld) [#/Vol]281 10*3/eH419-787PxvqlsogpKing'S Daughters Medical Center OhioRBC Auto (Bld) [#/Vol] on 18-77-6749ZYF (Bld) [#/Vol]Erythrocytes [#/volume] in Blood by Automated count4.20-6.00[facility] OhioRBC (Bld) [#/Vol]4.26 10*6/uL 4.20-6.00[facility] OhioMR TRANSFER OF OUTSIDE FILMSon 44-77-9050KW TRANSFER OF OUTSIDE FILMSOutside images for comparison or treatment purposes, not interpreted by Radiologists.[facility] Hospitaltudy Interpretation of outside studyon 10-21-2024 Outside images for comparison or treatment purposes, not interpreted by Radiologists.IMAGINGX-ray reportOrdered By: Dorothy Eubanks on 18-97-7812Cuvlr reportREGENCY H[place] [address] XRay Report Signed Patient: Shantel Melendez MR#: [id number] : 1960 Acct:[id number] Age/Sex: 63 / M ADM Date: 5 Loc: XD Room: Type: [facility] CLI Attending Dr: Solomon Narayanan PA-C Copies [...] Eubanks M.D. 10/10/2024 3:02 PM Dictation Location: [place] [address] Transcribed By: [facility] 10/10/24 1502 Dictated By: Dorothy Eubanks MD 10/10/24 1455 Signed By: 10/10/24 1502 [facility] Work Phone: XR cervical spine 2Von 48-73-0213EF cervical spine 2V [facility] [place] [address] [place] [address] XRay Report Signed Patient: Shantel Melendez MR#: [id number] : 1960 Acct:[id number] Age/Sex: 63 / M ADM Date: 10/10/24 Loc: XD Room: Type: [facility] Attending Dr: Solomon Narayanan PA-C Copies [...] Eubanks M.D. 10/10/2024 3:02 PM Dictation Location: [place] [address] Transcribed By: MARISA 10/10/24 1502 Dictated By: Dorothy Eubanks MD 10/10/24 1455 Signed By: 10/10/24 1502[facility] Physician GroupAlanine aminotransferase [Enzymatic activity/volume] in Serum or PlasmaOrdered By: Griselda [place] on 63-07-6460UPL [Catalytic activity/Vol]Alanine aminotransferase [Enzymatic activity/volume] in Serum or PlasmaLow7-52[facility] Albumin [Mass/volume] in Serum or Plasma by Bromocresol green (BCG) dye binding methoOrdered By: Griselda [place] on 13-77-0345Xhkwtqc BCG dye [Mass/Vol]Albumin [Mass/volume] in Serum or Plasma by Bromocresol green (BCG) dye binding methoLow 3.5-5.7FMercy Health Defiance HospitalAlkaline phosphatase [Enzymatic activity/volume] in Serum or PlasmaOrdered By: Griselda [place] on 27-12-2803FWN [Catalytic activity/Vol]Alkaline phosphatase [Enzymatic activity/volume] in Serum or Nnjmov25-169FxboltgueKing'S Daughters Medical Center OhioAspartate aminotransferase [Enzymatic activity/volume] in Serum or PlasmaOrdered By: Griselda [place] on 43-94-1687OJY [Catalytic activity/Vol]Aspartate aminotransferase [Enzymatic activity/volume] in Serum or PcnfqqJkt46-22IdgjwhynpKing'S Daughters [facility] Center [place] Basophils Auto (Bld) [#/Vol]Ordered By: Griselda [place] on 51-13-3418Pqrqdmaac (Bld) [#/Vol]Automated basophil count0.0-0.2FMercy Health Defiance Hospital Basophils/100 WBC Auto (Bld)Ordered By: Griselda [place] on 80-19-3887Ieilwmzos/100 WBC (Bld)Automated basophil %.[facility] OhioBilirubin.total [Mass/volume] in Serum or PlasmaOrdered By: Griselda [place] on 75-84-9261Xuhpwsrzm [Mass/Vol]Bilirubin.total [Mass/volume] in Serum or Plasma0.3-1.0[facility] OhioCalcium [Mass/volume] in Serum or PlasmaOrdered By: Griselda [place] on 11-09-2861Afonqfh [Mass/Vol]Calcium [Mass/volume] in Serum or Plasma 8.6-10.3FMercy Health Defiance HospitalCarbon dioxide, total [Moles/volume] in Serum or PlasmaOrdered By: Griselda [place] on 22-02-7797QB7 [Moles/Vol]Carbon dioxide, total [Moles/volume] in Serum or Sbscbs78.0-31.0[facility] OhioChloride [Moles/volume] in Serum or PlasmaOrdered By: Griselda [place] on 81-38-5296Rzmanrvr [Moles/Vol]Chloride [Moles/volume] in Serum or Plasma 98-107[facility] OhioCholesterol [Mass/volume] in Serum or PlasmaOrdered By: Griselda [place] 89-34-0163Ymzxzxvbbow [Mass/Vol]Cholesterol [Mass/volume] in Serum or YguxnxTwpe777-077YcyrvkpotKing'S Daughters Medical Center [place] Comment on above:Chol less than 200 mg/dl low riskChol 201-239 mg/dl borderline riskChol 240 mg/dl and greater high riskCholesterol in HDL [Mass/volume] in Serum or PlasmaOrdered By: Griselda [place] on 79-59-6950Dwyfhizwkjs in HDL [Mass/Vol] Serum or plasma high density lipoprotein (HDL) cholesterol astckiqczew74-85 [facility] OhioComment on above:HDL CHOL ATP-III CLASSIFICATION Cardiovascular RiskHDL > or equal to 60 mg/dL LOWHDL < 40 mg/dL HIGHCholesterol in LDL Calc [Mass/Vol]Ordered By: Griselda Hastings on 10-07-2024 Cholesterol in LDL [Mass/Vol]Cholesterol in LDL [Mass/volume] in Serum or Plasma by calculationHigh0-100[facility] OhioComment on above:LDL ATP III CLASSIFICATIONLDL less than 100 mg/dL OptimalLDL 100-129 mg/dL Near or above [id number] mg/dL Borderline highLDL 160-189 mg/dL HighLDL greater than 189 mg/dL Very highCholesterol in VLDL Calc [Mass/Vol]Ordered By: Griselda Hastings on [id number] in VLDL [Mass/Vol]Cholesterol in VLDL [Mass/volume] in Serum or Plasma by [facility] [facility] Clostridioides difficile toxin B tcdB gene [Presence] in Stool by JER with probe deteOrdered By: Manisha Negron on 10-07-2024. difficile toxin B tcdB gene JER+probe Ql (Stl)Clostridioides difficile toxin B tcdB gene [Presence] in Stool by JER with probe deteNegatRegency Hospital CompanyComment on above:Testing performed by RT-PCRClostridium Difficileon 57-83-8200Qzxeacscisp DifficileNegativeNormalNegativeThe [facility] Physician GroupComment on above: Result Comment: Testing performed by RT-PCR PERFORMED BY: [place] [address] PATHOLOGIST FITNESS SPECIALIST RAKEL LAZARO M.D.Performed By: #### CDT #### [place] [address] USAComplete Blood Count Auto Diffon 14-64-8029Payhxxgkw (Bld) [#/Vol]0.0 10*3/uLNormal0.0-0.2The [facility] Physician GroupComment on above: Result Comment: PERFORMED BY: [place] [address] PATHOLOGIST FITNESS SPECIALIST RAKEL LAZARO M.D.Performed By: #### CBC, HEPATIC, BMP, LIPASE #### [place] [address] USABasophils/100 WBC (Bld)0.8 %Normal.The [facility] Physician GroupComment on above:Performed By: #### CBC, HEPATIC, BMP, LIPASE #### [place] [address] USAEosinophils (Bld) [#/Vol]0.0 10*3/uLNormal0.0-0.45The [facility] Physician GroupComment on above:Performed By: #### CBC, HEPATIC, BMP, LIPASE #### [facility] [address] [place] [address] USAEosinophils/100 WBC (Bld)0.8 %Normal.The [facility] Physician GroupComment on above:Performed By: #### CBC, HEPATIC, BMP, LIPASE #### [place] [address] USAErythrocyte distribution width (RBC) [Ratio]13.7 %Normal 12.0-14.8The [facility] Physician GroupComment on above:Performed By: #### CBC, HEPATIC, BMP, LIPASE #### [place] [address] USAHematocrit (Bld) [Volume fraction]36.6 %Low38.8-50.0The [facility] Physician GroupComment on above:Performed By: #### CBC, HEPATIC, BMP, LIPASE #### [place] [address] USAHemoglobin (Bld) [Mass/Vol]12.8 g/dLLow13.0-17.0The [facility] Physician GroupComment on above:Performed By: #### CBC, HEPATIC, BMP, LIPASE #### [place] [address] USALymphocytes (Bld) [#/Vol]1.7 10*3/uLNormal1.00-4.8The [facility] Physician GroupComment on above:Performed By: #### CBC, HEPATIC, BMP, LIPASE #### [place] [address] USALymphocytes/100 WBC (Bld)31.1 %Normal.The [facility] Physician GroupComment on above:Performed By: #### CBC, HEPATIC, BMP, LIPASE #### [place] [address] USAMCH (RBC) [Entitic mass]32.4 ydWnnfdd77.5-35.2The [facility] Physician GroupComment on above:Performed By: #### CBC, HEPATIC, BMP, LIPASE #### [facility] [address] [place] [address] USAMCV (RBC) [Entitic vol]92.8 oAQggxgc99.5-101The [facility] Physician GroupComment on above:Performed By: #### CBC, HEPATIC, BMP, LIPASE #### [place] [address] USAMean Corpuscular HGB Conc34.9 g/yDGdpmvq36.5-35.6The [facility] Physician GroupComment on above:Performed By: #### CBC, HEPATIC, BMP, LIPASE #### [place] [address] USAMonocytes (Bld) [#/Vol]0.3 10*3/uLNormal0.0-0.8The [facility] Physician GroupComment on above:Performed By: #### CBC, HEPATIC, BMP, LIPASE #### [place] [address] USAMonocytes/100 WBC (Bld)4.9 %Normal.The [facility] Physician GroupComment on above:Performed By: #### CBC, HEPATIC, BMP, LIPASE #### [place] [address] USANeutrophils (Bld) [#/Vol]3.4 10*3/uLNormal1.8-7.7The [facility] Physician GroupComment on above:Performed By: #### CBC, HEPATIC, BMP, LIPASE #### [place] [address] USANeutrophils/100 WBC (Bld)62.4 %Normal.The [facility] Physician GroupComment on above:Performed By: #### CBC, HEPATIC, BMP, LIPASE #### [place] [address] USANRBC%0.0 /100{WBC}Normal0-0.5The [facility]ician Group Comment on above:Performed By: #### CBC, HEPATIC, BMP, LIPASE #### [place] [address] USAPlatelet mean volume (Bld) [Entitic vol]8.8 fLNormal 6.6-10.1The [facility] Physician GroupComment on above:Performed By: #### CBC, HEPATIC, BMP, LIPASE #### [place] [address] USAPlatelets (Bld) [#/Vol]343 10*3/yZZyuusg094-977Osp [facility] Physician GroupComment on above:Performed By: #### CBC, HEPATIC, BMP, LIPASE #### [place] [address] USARBC (Bld) [#/Vol]3.94 10*6/uLNormal3.90-5.60The [facility] Physician GroupComment on above:Performed By: #### CBC, HEPATIC, BMP, LIPASE #### [place] [address] USAWBC (Bld) [#/Vol]5.5 10*3/uLNormal4.1-10.5The [facility] Physician GroupComment on above:Performed By: #### CBC, HEPATIC, BMP, LIPASE #### [place] [address] USAComprehensive Metabolic Panelon 20-70-6188Bkfsarc [Mass/Vol]3.4 g/dLLow3.5-5.7The [facility] Physician GroupComment on above: Performed By: #### CBC, HEPATIC, BMP, LIPASE #### [place] [address] USAAlbumin/Globulin [Mass ratio]1.8 {ratio}NormalThe [facility] Physician GroupComment on above:Performed By: #### CBC, HEPATIC, BMP, LIPASE #### [place] [address] USAALP [Catalytic activity/Vol]62 U/LWpgoqv57-434Dtj [facility] Physician GroupComment on above:Performed By: #### CBC, HEPATIC, BMP, LIPASE #### [address] [place] [address] USAALT [Catalytic activity/Vol]6 U/LLow7-52The [facility] Physician GroupComment on above:Performed By: #### CBC, HEPATIC, BMP, LIPASE #### [facility] [address] [place] [address] USAAnion gap [Moles/Vol]9.7 mmol/LNormal6.0-15.0The [facility] Physician GroupComment on above:Performed By: #### CBC, HEPATIC, BMP, LIPASE #### [facility] [address] [place] [address] USAAST [Catalytic activity/Vol]8 U/SGwu32-23Lgn [facility] Physician GroupComment on above:Performed By: #### CBC, HEPATIC, BMP, LIPASE #### [place] [address] USABilirubin [Mass/Vol]0.6 mg/dLNormal0.3-1.0The [facility] Physician GroupComment on above:Performed By: #### CBC, HEPATIC, BMP, LIPASE #### [place] [address] USACalcium [Mass/Vol]9.3 mg/dLNormal8.6-10.3The [facility] Physician GroupComment on above:Performed By: #### CBC, HEPATIC, BMP, LIPASE #### [place] [address] USAChloride [Moles/Vol]103 mmol/HSzyncp57-476Ldu [facility] Physician GroupComment on above:Performed By: #### CBC, HEPATIC, BMP, LIPASE #### [place] [address] USACO2 [Moles/Vol]29.1 mmol/ONwtpqq03.0-31.0The [facility] Physician GroupComment on above:Performed By: #### CBC, HEPATIC, BMP, LIPASE #### [place] [address] USACreatinine [Mass/Vol]0.74 mg/dLNormal0.70-1.30The [facility] Physician GroupComment on above:Performed By: #### CBC, HEPATIC, BMP, LIPASE #### [facility] [address] [place] [address] USAGFR/1.73 sq M.predicted MDRD (S/P/Bld) [Vol rate/Area] mL/min/{1.73_m2}NormalThe [facility] Physician GroupComment on above:Performed By: #### CBC, HEPATIC, BMP, LIPASE #### [facility] [address] [place] [address] USAGlobulin (S) [Mass/Vol]1.9 g/dLNormalThe [facility] Physician GroupComment on above:Performed By: #### CBC, HEPATIC, BMP, LIPASE #### [facility] [address] [place] [address] USAGlucose [Mass/Vol]84 mg/cILtqpkc14-891Jjh [facility] Physician GroupComment on above:Result Comment: Random Glucose Reference Range is dependent on time and content of last meal. Glucose of more than 200 mg/dL in a nonstressed, ambulatory subject supports the diagnosis of Diabetes Mellitus. ADA recommended reference rangePerformed By: #### CBC, HEPATIC, BMP, LIPASE #### [facility] [address] [place] [address] USAPotassium [Moles/Vol]4.8 mmol/LNormal3.5-5.1The [facility] Physician GroupComment on above:Performed By: #### CBC, HEPATIC, BMP, LIPASE #### [facility] [address] [place] [address] USAProtein [Mass/Vol]5.3 g/dLLow6.4-8.9The [facility] Physician GroupComment on above:Performed By: #### CBC, HEPATIC, BMP, LIPASE #### [facility] [address] [place] [address] USASodium [Moles/Vol]137 mmol/PMnxlsa051-755Inp [facility] Physician GroupComment on above:Performed By: #### CBC, HEPATIC, BMP, LIPASE #### [facility] [address] [place] [address] USAUrea nitrogen [Mass/Vol]7 mg/dLNormal7-25The [facility] Physician GroupComment on above:Performed By: #### CBC, HEPATIC, BMP, LIPASE #### [facility] [address] [place] [address] USACreatinine [Mass/volume] in Serum or PlasmaOrdered By: Griselda Hastings on 21-60-8694Kkctqapsgs [Mass/Vol]Creatinine [Mass/volume] in Serum or Plasma0.70-1.30[facility] OhioEosinophils Auto (Bld) [#/Vol]Ordered By: Griselda Hastings on 59-73-6072Qicinjdfugs (Bld) [#/Vol]Automated eosinophil count0.0-0.45[facility] OhioEosinophils/100 WBC Auto (Bld)Ordered By: Griselda Hastings on 57-11-5625Nfvwuvdjltq/100 WBC (Bld)Automated eosinophil %.[facility] OhioErythrocyte distribution width Auto (RBC) [Ratio]Ordered By: Griselda Hastings on 39-30-2090Jaeqlfresoy distribution width (RBC) [Ratio]Erythrocyte distribution width [Ratio] by Automated count 12.0-14.8[facility] OhioGlobulin Calc (S) [Mass/Vol]Ordered By: Griselda Hastings on 77-07-2351Xgowoddf (S) [Mass/Vol]Serum globulin measurement by calculation (mass/volume)[facility] OhioGlucose [Mass/volume] in Serum or PlasmaOrdered By: Griselda Hastings on 77-95-5366Bgtvwor [Mass/Vol]Glucose [Mass/volume] in Serum or Yiwppg81-004OtxtzwagpKing'S Daughters [facility] Center OhioComment on above:ADA recommended reference rangeRandom Glucose Reference Range is dependent on time and content of last meal. Glucose of more than 200 mg/dL in a nonstressed, ambulatory subject supports the diagnosisof Diabetes Mellitus. Hematocrit Auto (Bld) [Volume fraction]Ordered By: Griselda Hastings on 10-07-2024 Hematocrit (Bld) [Volume fraction]Hematocrit [Volume Fraction] of Blood by Automated nncqvUpi69.8-50.0[facility] OhioHemoglobin [Mass/volume] in BloodOrdered By: Griselda Hastings on 74-36-5352Lwttasyqwj (Bld) [Mass/Vol]Hemoglobin [Mass/volume] in GxqkbQru36.0-17.0[facility] OhioLeukocytes [#/volume] corrected for nucleated erythrocytes in Blood by Automated counOrdered By: Griselda Hastings on 67-96-2785XZE corrected for nucl RBC Auto (Bld) [#/Vol]Leukocytes [#/volume] corrected for nucleated erythrocytes in Blood by Automated coun4.1-10.5FMercy Health Defiance Hospital Lipid Panelon 91-78-4590Rptwslojxai [Mass/Vol]204 mg/oSBuui742-043Qmo [facility] Physician GroupComment on above:Result Comment: Chol less than 200 mg/dl low risk Chol 201-239 mg/dl borderline risk Chol 240 mg/dl and greater high riskPerformed By: #### CBC, HEPATIC, BMP, LIPASE #### [facility] [address] [place] [address] USACholesterol in HDL [Mass/Vol]35 mg/tSMgrvqw38-76Env [facility] Physician GroupComment on above:Result Comment: HDL CHOL ATP-III CLASSIFICATION Cardiovascular Risk HDL > or equal to 60 mg/dL LOW HDL < 40 mg/dL HIGHPerformed By: #### CBC, HEPATIC, BMP, LIPASE #### [facility] [address] [place] [address] USACholesterol.total/Cholesterol in HDL [Mass ratio]5.8 {ratio}Normal<5.0The [facility] Physician GroupComment on above:Performed By: #### CBC, HEPATIC, BMP, LIPASE #### [facility] [address] [place] [address] USALDL Cholesterol,Zftasnplbp230 mg/dLHigh0-100The [facility] Physician GroupComment on above:Result Comment: LDL ATP III CLASSIFICATION LDL less than 100 mg/dL Optimal LDL 100-129 mg/dL Near or above optimal LDL 130-159 mg/dL Borderline high LDL 160-189 mg/dL High LDL greater than 189 mg/dL Very highPerformed By: #### CBC, HEPATIC, BMP, LIPASE #### [facility] [address] [place] [address] USATriglyceride w/Ssaosy749 mg/dLNormal0-149The [facility] Physician GroupComment on above:Result Comment: TRIG ATP III CLASSIFICATION TRIG less than 150 mg/dL Normal TRIG 150-199 mg/dL Borderline high TRIG 200-500 mg/dL High TRIG greater than 500 mg/dL Very high Standard traceable to the Center for Disease Conrtrol and Prevention (CDC) test method.Performed By: #### CBC, HEPATIC, BMP, LIPASE #### [facility] [address] [place] [address] USAVLDL GDVQHLPZUYF60 mg/dLNoWashington Regional Medical Center Physician GroupComment on above:Performed By: #### CBC, HEPATIC, BMP, LIPASE #### [facility] [address] [place] [address] USALymphocytes Auto (Bld) [#/Vol]Ordered By: Griselda Hastings on 44-46-4506Dfjlllyrshb (Bld) [#/Vol]Lymphocytes [#/volume] in Blood by Automated count1.00-4.8[facility] OhioLymphocytes/100 WBC Auto (Bld) Ordered By: Griselda Hastings on 20-21-0608Vuwgzfablqw/100 WBC (Bld)Lymphocytes/100 leukocytes in Blood by Automated count.[facility] CenterH Auto (RBC) [Entitic mass]Ordered By: Griselda Hastings on 82-76-2362NNQ (RBC) [Entitic mass]MCH [Entitic mass] by Automated count27.5-35.2FUC Medical CenterHC Auto (RBC) [Mass/Vol]Ordered By: Griselda Hastings on 74-25-6221OGTB (RBC) [Mass/Vol]MCHC [Mass/volume] by Automated count32.5-35.6FUC Medical CenterV Auto (RBC) [Entitic vol]Ordered By: Griselda Hastings on 10-07-2024 MCV (RBC) [Entitic vol]MCV [Entitic volume] by Automated count83.5-101[facility] OhioMonocytes Auto (Bld) [#/Vol]Ordered By: Griselda Hastings on 30-47-4266Qougatkaf (Bld) [#/Vol]Automated blood monocyte count0.0-0.8[facility] OhioMonocytes/100 WBC Auto (Bld)Ordered By: Griselda Hastings on 08-83-6346Kpcxwtmym/100 WBC (Bld)Automated monocyte %.[facility] OhioNeutrophils Auto (Bld) [#/Vol]Ordered By: Griselda Hastings on 10-07-2024 Neutrophils (Bld) [#/Vol]Neutrophils [#/volume] in Blood by Automated count 1.8-7.7FMercy Health Defiance HospitalNeutrophils/100 WBC Auto (Bld)Ordered By: Griselda Hastings on 58-80-5924Hvnzrtkiujp/100 WBC (Bld)Automated neutrophil %. [facility] OhioNo Panel InformationOrdered By: Griselda Hastings on 21-64-4286Sioqaoshj GFR (CKD-EPI)> 60.0 mL/MinKing'S Daughters Medical Center Ohio [facility] Creatinine Clearance (ChemN/[facility] Community HospitalNucleated erythrocytes [Presence] in Blood by Automated countOrdered By: Griselda Hastings on 23-91-3536Okjxbeodh RBC Auto Ql (Bld)Nucleated erythrocytes [Presence] in Blood by Automated count0-0.5FMercy Health Defiance HospitalPSA Screen (Yearly Only) on 14-98-8405JLL Screen (Yearly Only)0.670 ng/mLNormal0.000-4.000The [facility] Physician GroupComment on above:Result Comment: Serial tumor marker results determined by assays using different manufacturers or methods may not be comparable. [facility] cessation systems outreach specialist and method: THELMA UNICEL DXI, CHEMILUMINESCENT IMMUNOASSAY. PERFORMED BY: [place] [address] PATHOLOGIST FITNESS SPECIALIST RAKEL LAZARO M.D.Performed By: #### CBC, HEPATIC, BMP, LIPASE #### [facility] [address] [place] [address] USAPlatelet mean volume Auto (Bld) [Entitic vol]Ordered By: Griselda Hastings on 62-53-3703Ufkwmvgu mean volume (Bld) [Entitic vol]Platelet mean volume [Entitic volume] in Blood by Automated count6.6-10.1FMercy Health Defiance HospitalPlatelets Auto (Bld) [#/Vol]Ordered By: Griselda Hastings on 10-07-2024 Platelets (Bld) [#/Vol]Platelets [#/volume] in Blood by Automated ubdur055-162 [facility] OhioPotassium [Moles/volume] in Serum or Plasma Ordered By: Griselda Hastings on 73-60-0995Oihccjfzy [Moles/Vol]Potassium [Moles/volume] in Serum or Plasma3.5-5.1FMercy Health Defiance Hospital Prostate specific Ag [Mass/volume] in Serum or PlasmaOrdered By: Griselda Hastings on 86-49-6896Jyucbyko specific Ag [Mass/Vol]Prostate specific Ag [Mass/volume] in Serum or Plasma0.000-4.000[facility] OhioComment on above: Serial tumor marker results determined by assays using different manufacturers or methods may not be comparable.[facility] cessation systems outreach specialist and method:[employer] DXI, CHEMILUMINESCENT IMMUNOASSAY.Protein [Mass/volume] in Serum or PlasmaOrdered By: Griselda Hastings on 24-14-8928Chvaojy [Mass/Vol]Protein [Mass/volume] in Serum or PlasmaLow6.4-8.9[facility] OhioRBC Auto (Bld) [#/Vol]Ordered By: Griselda Hastings on 95-27-9492QOA (Bld) [#/Vol] Erythrocytes [#/volume] in Blood by Automated count3.90-5.60[facility] Health Centererum or plasma albumin/globulin mass ratioOrdered By: Griselda Hastings on 57-85-3581Giynowo/Globulin [Mass ratio]Serum or plasma albumin/globulin mass ratioOhioHealth Nelsonville Health Centererum or plasma anion gap determination Ordered By: Griselda Hastings on 52-33-3318Vuroi gap [Moles/Vol]Serum or plasma anion gap determination6.0-15.0[facility] Health Centererum or plasma total cholesterol/high density lipoprotein (HDL) cholesterol mass ratOrdered By: Griselda Hastings on 57-48-7433Nlltxeupjsl.total/Cholesterol in HDL [Mass ratio]Serum or plasma total cholesterol/high density lipoprotein (HDL) cholesterol mass rat<5.0 [facility] Health Centerodium [Moles/volume] in Serum or PlasmaOrdered By: Griselda Hastings on 96-52-1406Wkxnnh [Moles/Vol]Sodium [Moles/volume] in Serum or Fuqgpy629-929WvriikhvyKing'S Daughters Medical Center OhioThyroid Stimulating Hormoneon 02-91-9970JSZ Qn1.03 m[IU]/LNormal0.45-5.33The [facility] Physician GroupComment on above:Result Comment: PERFORMED BY: [facility] [address] [place] [address] PATHOLOGIST FITNESS SPECIALIST RAKEL LAZARO M.D.Performed By: #### CBC, HEPATIC, BMP, LIPASE #### [facility] [address] [place] [id number] USAThyrotropin [Units/volume] in Serum or PlasmaOrdered By: Griselda Hastings on 62-13-9790WDK QnThyrotropin [Units/volume] in Serum or Plasma 0.45-5.33[facility] OhioTriglyceride [Mass/volume] in Serum or PlasmaOrdered By: Griselda Hastings on 23-40-9409Kzuxdbvgqsgt [Mass/Vol]Triglyceride [Mass/volume] in Serum or Plasma0-149[facility] OhioComment on above:TRIG ATP III CLASSIFICATIONTRIG less than 150 mg/dL NormalTRIG 150-199 mg/dL Borderline highTRIG 200-500 mg/dL High TRIG greater than 500 mg/dL Very highStandard traceable to the Center for Disease Conrtrol and Prevention (CDC) test method.Urea nitrogen [Mass/volume] in Serum or PlasmaOrdered By: Griselda Hastings on 50-15-9316Sfpx nitrogen [Mass/Vol]Urea nitrogen [Mass/volume] in Serum or Plasma7-[facility] OhioWBC Auto (Bld) [#/Vol]Ordered By: Griselda Hastings on 41-66-8507DSG (Bld) [#/Vol]Leukocytes [#/volume] in Blood by Automated count4.1-10.5FMercy Health Defiance HospitalAlanine aminotransferase [Enzymatic activity/volume] in Serum or PlasmaOrdered By: PROVIDER TEMArabella on 42-67-9201HKH [Catalytic activity/Vol]Alanine aminotransferase [Enzymatic activity/volume] in Serum or PlasmaKing'S Daughters Medical Center OhioAlbumin [Mass/volume] in Serum or Plasma by Bromocresol green (BCG) dye binding metho Ordered By: PROVIDER TEMP on 61-08-4504Huzzaud BCG dye [Mass/Vol]Albumin [Mass/volume] in Serum or Plasma by Bromocresol green (BCG) dye binding metho 3.5-5.7FMercy Health Defiance HospitalAlkaline phosphatase [Enzymatic activity/volume] in Serum or PlasmaOrdered By: PROVIDER TEMP on 95-33-1955HLY [Catalytic activity/Vol]Alkaline phosphatase [Enzymatic activity/volume] in Serum or Xgbakv54-394QbxjnhlawKing'S Daughters Medical Center OhioAppearance of UrineOrdered By: Manisha Negron on 51-85-1799Qsfynxwkng (U)Urine appearanceCleSumma Health Wadsworth - Rittman Medical CenterAspartate aminotransferase [Enzymatic activity/volume] in Serum or PlasmaOrdered By: PROVIDER TEMP on 97-91-8761LOK [Catalytic activity/Vol]Aspartate aminotransferase [Enzymatic activity/volume] in Serum or XnunnxVtu89-50RkcwdwgyxKing'S Daughters Medical Center OhioBacteria [Presence] in Urine by AutomatedOrdered By: Manisha Negron on 12-19-0177Lkkdauaf Auto Ql (U)Bacteria [Presence] in Urine by AutomatedNone SeenKing'S Daughters Medical Center OhioBasic Metabolic Panelon 61-47-7574Nmctm gap [Moles/Vol]8.5 mmol/LNormal6.0-15.0The [facility] Physician GroupComment on above:Performed By: #### CBC, HEPATIC, BMP, LIPASE #### [facility] [address] [place] [address] USACalcium [Mass/Vol]9.5 mg/dLNormal8.6-10.3The [facility] Physician GroupComment on above:Performed By: #### CBC, HEPATIC, BMP, LIPASE #### [facility] [address] [place] [id number] USAChloride [Moles/Vol]104 mmol/VUhztec09-618Tkf [facility] Physician GroupComment on above:Performed By: #### CBC, HEPATIC, BMP, LIPASE #### [facility] [address] [place] [id number] USACO2 [Moles/Vol]28.3 mmol/VWrqfwc23.0-31.0The [facility] Physician GroupComment on above:Performed By: #### CBC, HEPATIC, BMP, LIPASE #### [facility] [address] [place] [address] USACreatinine [Mass/Vol]0.82 mg/dLNormal0.70-1.30The [facility] Physician GroupComment on above:Performed By: #### CBC, HEPATIC, BMP, LIPASE #### [facility] [address] [place] [address] USACreatinine Clr Calc Swzkrkzp54.52NormalThe [facility] Physician GroupComment on above:Performed By: #### CBC, HEPATIC, BMP, LIPASE #### [facility] [address] [place] [address] USAGFR/1.73 sq M.predicted MDRD (S/P/Bld) [Vol rate/Area] mL/min/{1.73_m2}NormalThe [facility] Physician GroupComment on above:Performed By: #### CBC, HEPATIC, BMP, LIPASE #### [facility] [address] [place] [address] USAGlucose [Mass/Vol]86 mg/pPXatkxi83-604Zij [facility] Physician GroupComment on above:Result Comment: Random Glucose Reference Range is dependent on time and content of last meal. Glucose of more than 200 mg/dL in a nonstressed, ambulatory subject supports the diagnosis of Diabetes Mellitus. ADA recommended reference rangePerformed By: #### CBC, HEPATIC, BMP, LIPASE #### [facility] [address] [place] [address] USAPotassium [Moles/Vol]4.8 mmol/LNormal3.5-5.1The [facility] Physician GroupComment on above:Performed By: #### CBC, HEPATIC, BMP, LIPASE #### [facility] [address] [place] [address] USASodium [Moles/Vol]136 mmol/ZEmoqah605-105Lic [facility] Physician GroupComment on above:Performed By: #### CBC, HEPATIC, BMP, LIPASE #### [facility] [address] [place] [address] USAUrea nitrogen [Mass/Vol]9 mg/dLNormal7-25The [facility] Physician GroupComment on above:Performed By: #### CBC, HEPATIC, BMP, LIPASE #### [facility] [address] [place] [address] USABasophils Auto (Bld) [#/Vol]Ordered By: PROVIDER TEMP on 91-80-8633Gmtjclecw (Bld) [#/Vol]Automated basophil count0.0-0.2FMercy Health Defiance HospitalBasophils/100 WBC Auto (Bld)Ordered By: PROVIDER TEMP on 25-63-6667Iwzqvzsuj/100 WBC (Bld)Automated basophil %.[facility] OhioBilirubin Test strip Ql (U)Ordered By: Manisha Negron on 10-06-2024 Bilirubin Ql (U)Bilirubin.total [Presence] in Urine by Test stripNegative [facility] OhioBilirubin.direct [Mass/volume] in Serum or PlasmaOrdered By: PROVIDER TEMP on 47-79-1694Eknszjern.direct [Mass/Vol] Bilirubin.direct [Mass/volume] in Serum or Plasma0.03-0.18FMercy Health Defiance HospitalBilirubin.total [Mass/volume] in Serum or PlasmaOrdered By: PROVIDER TEMP on 76-72-3036Jfwoiaakw [Mass/Vol]Bilirubin.total [Mass/volume] in Serum or Plasma0.3-1.0[facility] OhioCT abdomen pelvis w conon 62-33-1624YY abdomen pelvis w [facility] [place] [address] [place] [address] CT Scan Report Signed Patient: Shantel Melendez MR#: [id number] : 1960 Acct:[id number] Age/Sex: 63 / M ADM Date: 10/06/24 Loc: ER Room: Type: ST. [facility] ER Attending Dr: Copies to: Manisha Negron [...] 90 mL Isovue- 300. This CT exam was performed using one [...] Dorothy Eubanks M.D.10/06/2024 4:08 PM Dictation Location: [place] [address] Transcribed By: [facility] 10/06/24 9498 Dictated By: Dorothy Eubanks MD 10/06/24 1556 Signed By: 10/06/24 1608[facility] Physician GroupCT soft tissue neck w conon 72-86-2168YD soft tissue neck w [facility] [place] [address] [place] [address] CT Scan Report Signed Patient: Shantel Melendez MR#: [id number] : 1960 Acct:[id number] Age/Sex: 63 / M ADM Date: 10/06/24 Loc: ER Room: Type: [facility] ER Attending Dr: Copies to: Manisha Negron [...] Dorothy Eubanks M.D.10/06/2024 3:56 PM Dictation Location: [place] [address] Transcribed By: [facility] 10/06/24 1556 Dictated By: Dorothy Eubanks MD 10/06/24 155 Signed By: 10/06/24 1556[facility] Physician GroupCalcium [Mass/volume] in Serum or PlasmaOrdered By: PROVIDER TEMP on 36-44-7402Pagtkpp [Mass/Vol]Calcium [Mass/volume] in Serum or Plasma8.6-10.3FMercy Health Defiance HospitalCarbon dioxide, total [Moles/volume] in Serum or PlasmaOrdered By: PROVIDER TEMP on 21-82-4063UN8 [Moles/Vol]Carbon dioxide, total [Moles/volume] in Serum or Plasma 21.0-31.0[facility] OhioChloride [Moles/volume] in Serum or PlasmaOrdered By: PROVIDER TEMP on 30-25-6944Hdrlfxnk [Moles/Vol]Chloride [Moles/volume] in Serum or Yppzbj55-904CkcmjljbuKing'S Daughters Medical Center OhioColor Auto (U)Ordered By: Manisha Negron on 93-18-5055Oqyrh (U)Color of Urine by Auto YellowKing'S Daughters Medical Center OhioComplete Blood Count Auto Diffon 99-65-2450Kctthjcri (Bld) [#/Vol]0.1 10*3/uLNormal0.0-0.2The [facility] Physician GroupComment on above:Result Comment: PERFORMED BY: [place] [address] PATHOLOGIST FITNESS SPECIALIST RAKEL LAZARO M.D.Performed By: #### CBC, HEPATIC, BMP, LIPASE #### [facility] [address] [place] [address] USABasophils/100 WBC (Bld)1.1 %Normal.The [facility] Physician GroupComment on above:Performed By: #### CBC, HEPATIC, BMP, LIPASE #### [facility] [address] [place] [address] USAEosinophils (Bld) [#/Vol]0.1 10*3/uLNormal0.0-0.45The [facility] Physician GroupComment on above:Performed By: #### CBC, HEPATIC, BMP, LIPASE #### [facility] [address] [place] [address] USAEosinophils/100 WBC (Bld)0.9 %Normal.The [facility] Physician GroupComment on above:Performed By: #### CBC, HEPATIC, BMP, LIPASE #### [place] [address] USAErythrocyte distribution width (RBC) [Ratio]13.7 %Normal 12.0-14.8The [facility] Physician GroupComment on above:Performed By: #### CBC, HEPATIC, BMP, LIPASE #### [place] [address] USAHematocrit (Bld) [Volume fraction]37.0 %Low38.8-50.0The [facility] Physician GroupComment on above:Performed By: #### CBC, HEPATIC, BMP, LIPASE #### [place] [address] USAHemoglobin (Bld) [Mass/Vol]12.8 g/dLLow13.0-17.0The [facility] Physician GroupComment on above:Performed By: #### CBC, HEPATIC, BMP, LIPASE #### [place] [address] USALymphocytes (Bld) [#/Vol]2.0 10*3/uLNormal1.00-4.8The [facility] Physician GroupComment on above:Performed By: #### CBC, HEPATIC, BMP, LIPASE #### [place] [address] USALymphocytes/100 WBC (Bld)28.2 %Normal.[facility] Physician GroupComment on above:Performed By: #### CBC, HEPATIC, BMP, LIPASE #### [place] [address] USAMCH (RBC) [Entitic mass]32.0 ycRwvxjb60.5-35.2The [facility] Physician GroupComment on above:Performed By: #### CBC, HEPATIC, BMP, LIPASE #### [place] [address] USAMCV (RBC) [Entitic vol]92.6 aWCmrlav46.5-101The [facility] Physician GroupComment on above:Performed By: #### CBC, HEPATIC, BMP, LIPASE #### [place] [address] USAMean Corpuscular HGB Conc34.6 g/iJEobsdl28.5-35.6The [facility] Physician GroupComment on above:Performed By: #### CBC, HEPATIC, BMP, LIPASE #### [place] [address] USAMonocytes (Bld) [#/Vol]0.4 10*3/uLNormal0.0-0.8The [facility] Physician GroupComment on above:Performed By: #### CBC, HEPATIC, BMP, LIPASE #### [place] [address] USAMonocytes/100 WBC (Bld)17.04 %Normal0.00-20.00The [facility] Physician GroupComment on above:Performed By: #### CBC, HEPATIC, BMP, LIPASE #### [place] [address] USAMonocytes/100 WBC (Bld)5.4 %Normal.[facility] Physician GroupComment on above:Performed By: #### CBC, HEPATIC, BMP, LIPASE #### [place] [address] USANeutrophils (Bld) [#/Vol]4.7 10*3/uLNormal1.8-7.7The [facility] Physician GroupComment on above:Performed By: #### CBC, HEPATIC, BMP, LIPASE #### [place] [address] USANeutrophils/100 WBC (Bld)64.4 %Normal.The [facility] Physician GroupComment on above:Performed By: #### CBC, HEPATIC, BMP, LIPASE #### [place] [address] USANRBC%0.1 /100{WBC}Normal0-0.5The [facility]ician [facility] Comment on above:Performed By: #### CBC, HEPATIC, BMP, LIPASE #### [place] [address] USAPlatelet mean volume (Bld) [Entitic vol]8.4 fLNormal 6.6-10.1The [facility] Physician GroupComment on above:Performed By: #### CBC, HEPATIC, BMP, LIPASE #### [facility] [address] [place] [address] USAPlatelets (Bld) [#/Vol]357 10*3/xXFbbozr602-893Rdx [facility] Physician GroupComment on above:Performed By: #### CBC, HEPATIC, BMP, LIPASE #### [facility] [address] [place] [address] USARBC (Bld) [#/Vol]3.99 10*6/uLNormal3.90-5.60The [facility] Physician GroupComment on above:Performed By: #### CBC, HEPATIC, BMP, LIPASE #### [place] [address] USAWBC (Bld) [#/Vol]7.2 10*3/uLNormal4.1-10.5The [facility] Physician GroupComment on above:Performed By: #### CBC, HEPATIC, BMP, LIPASE #### [place] [address] USACreatinine [Mass/volume] in Serum or PlasmaOrdered By: PROVIDER TEMP on 67-43-8061Cjnmfcpxid [Mass/Vol]Creatinine [Mass/volume] in Serum or Plasma0.70-1.30[facility] OhioDipstick and Microscopicon 94-12-1767Owwruypinz (U)ClearNormalClearThe [facility] Physician GroupComment on above:Order Comment: Name Collection Type:: Clean-Voided MidstreamPerformed By: #### CBC, HEPATIC, BMP, LIPASE #### [place] [address] USABacteria,UrineNone SeenNormalNone SeenThe [facility] Physician GroupComment on above:Order Comment: Name Collection Type:: Clean- Voided MidstreamPerformed By: #### CBC, HEPATIC, BMP, LIPASE #### [place] [address] USABilirubin,UrineNegativeNormalNegativeThe [facility] Physician GroupComment on above:Order Comment: Name Collection Type:: Clean- Voided MidstreamPerformed By: #### CBC, HEPATIC, BMP, LIPASE #### [place] [address] USAColor (U)YellowNormalYellowThe [facility] Physician Group Comment on above:Order Comment: Name Collection Type:: Clean-Voided Midstream Performed By: #### CBC, HEPATIC, BMP, LIPASE #### [place] [address] USAGlucose Ql (U)NormalNormalNormalThSt. Mary's Hospital Physician GroupComment on above:Order Comment: Name Collection Type:: Clean-Voided MidstreamPerformed By: #### CBC, HEPATIC, BMP, LIPASE #### [place] [address] USAHyaline Casts,UrineNoneNormal0-8The [facility] Physician GroupComment on above:Order Comment: Name Collection Type:: Clean-Voided MidstreamPerformed By: #### CBC, HEPATIC, BMP, LIPASE #### [place] [address] USAKetones Ql (U)NegativeNormalNegativeHca Florida Blake Hospital Physician GroupComment on above:Order Comment: Name Collection Type:: Clean- Voided MidstreamPerformed By: #### CBC, HEPATIC, BMP, LIPASE #### [place] [address] USALeukocyte esterase Test strip Ql (U)NegativeNormalNegative The [facility] Physician GroupComment on above:Order Comment: Name Collection Type:: Clean-Voided MidstreamPerformed By: #### CBC, HEPATIC, BMP, LIPASE #### [place] [address] USAMucus,UrineRareNormalHca Florida Blake Hospital Physician GroupComment on above:Order Comment: Name Collection Type:: Clean-Voided MidstreamResult Comment: PERFORMED BY: [place] [address] PATHOLOGIST FITNESS SPECIALIST RAKEL LAZARO M.D.Performed By: #### CBC, HEPATIC, BMP, LIPASE #### [place] [address] USANitrite,UrineNegativeNormalNegativeThe [facility] Physician GroupComment on above:Order Comment: Name Collection Type:: Clean-Voided MidstreamPerformed By: #### CBC, HEPATIC, BMP, LIPASE #### [place] [address] USAOccult Blood,UrineTraceHighNegativeThe [facility] Physician GroupComment on above:Order Comment: Name Collection Type:: Clean-Voided MidstreamResult Comment: PERFORMED BY: [place] [address] PATHOLOGIST FITNESS SPECIALIST RAKEL LAZARO M.D.Performed By: #### CBC, HEPATIC, BMP, LIPASE #### [place] [address] USApH (U)5.5 [pH]Normal5.0-9.0[facility] Comment on above:Order Comment: Name Collection Type:: Clean-Voided Midstream Performed By: #### CBC, HEPATIC, BMP, LIPASE #### [place] [address] USAProtein,UrineNegativeNormalNegativeThe [facility] Physician GroupComment on above:Order Comment: Name Collection Type:: Clean-Voided MidstreamPerformed By: #### CBC, HEPATIC, BMP, LIPASE #### [place] [address] USARBC,Jofcm3-2Qoquaq2-6Smg [facility] Physician GroupComment on above:Order Comment: Name Collection Type:: Clean-Voided MidstreamPerformed By: #### CBC, HEPATIC, BMP, LIPASE #### [place] [address] USASpecificy [place],Urine>1.703Zlny4.001-1.030The [facility] Physician GroupComment on above:Order Comment: Name Collection Type:: Clean- Voided MidstreamPerformed By: #### CBC, HEPATIC, BMP, LIPASE #### [place] [address] USASquamous Epithelial Cell,Vmmuj7-4Szscnv5-4Jrg [facility] Physician GroupComment on above:Order Comment: Name Collection Type:: Clean- Voided MidstreamPerformed By: #### CBC, HEPATIC, BMP, LIPASE #### [facility] [address] [place] [address] USAUrobilinogen,UrineNormalNormalNormalThe [facility] Physician GroupComment on above:Order Comment: Name Collection Type:: Clean- Voided MidstreamPerformed By: #### CBC, HEPATIC, BMP, LIPASE #### [facility] [address] [place] [address] USAWBC,Eewcq3-3Dhgmjk5-2Cbf [facility] Physician GroupComment on above:Order Comment: Name Collection Type:: Clean-Voided MidstreamPerformed By: #### CBC, HEPATIC, BMP, LIPASE #### [facility] [address] [place] [address] USAECG 12 lead ECGon 81-36-0522HJL 12 lead ECGREGENCY HOS[facility]OL[facility] [place] [address] [place], [place] [id number] Electrocardiograph Report Signed Patient: Shantel Melendez MR#: [id number] : 1960 Acct:[id number] Age/Sex: 63 / M ADM Date: 10/06/24 Loc: ER Room: Type: [facility] ER Attending Dr: Ordering Provider: Manisha [...] now present Confirmed by Duke Kaufman DO ([id number]) on 10/06/2024 7:36:01 PM Referred By: Electronically Signed By: Duke Kaufman DO Transcribed By: MUS Signed By Duke Kaufman DO 5 1935[facility] Physician GroupEosinophils Auto (Bld) [#/Vol]Ordered By: PROVIDER TEMP on 17-54-1178Yggwbjwssel (Bld) [#/Vol]Automated eosinophil count0.0-0.45[facility] OhioEosinophils/100 WBC Auto (Bld) Ordered By: PROVIDER TEMP on 88-10-9241Eptmgjbcsaz/100 WBC (Bld)Automated eosinophil %.[facility] OhioEpithelial cells.squamous [#/area] in Urine sediment by Automated countOrdered By: Manisha Negron on 10-06-2024 Epithelial cells.squamous Auto (Urine sed) [#/Area]Epithelial cells.squamous [#/area] in Urine sediment by Automated count0-2FMercy Health Defiance HospitalErythrocyte distribution width Auto (RBC) [Ratio]Ordered By: PROVIDER TEMP on 12-27-7554Xnqowagzuzb distribution width (RBC) [Ratio]Erythrocyte distribution width [Ratio] by Automated count12.0-14.8[facility] OhioErythrocytes [#/area] in Urine sediment by Automated countOrdered By: Manisha Negron on 79-33-1323ZYC Auto (Urine sed) [#/Area]Erythrocytes [#/area] in Urine sediment by Automated count0-4FMercy Health Defiance HospitalGlobulin Calc (S) [Mass/Vol]Ordered By: PROVIDER TEMP on 92-70-8486Vgiqjazf (S) [Mass/Vol]Serum globulin measurement by calculation (mass/volume)[facility] OhioGlucose [Mass/volume] in Serum or PlasmaOrdered By: PROVIDER TEMP on 92-27-7374Yttccte [Mass/Vol]Glucose [Mass/volume] in Serum or Cnvvbq80-800YyzsopnxgKing'S Daughters Medical Center OhioComment on above:ADA recommended reference rangeRandom Glucose Reference Range is dependent on time and content of last meal. Glucose of more than 200 mg/dL in a nonstressed, ambulatory subject supports the diagnosisof Diabetes Mellitus.Glucose [Mass/volume] in Urine by Test stripOrdered By: Manisha Negron on 43-48-7494Qriqoxo Test strip (U) [Mass/Vol]Glucose [Mass/volume] in Urine by Test stripNormalKing'S Daughters Medical Center OhioHematocrit Auto (Bld) [Volume fraction]Ordered By: PROVIDER TEMP on 08-63-8985Hbpyfzvdvc (Bld) [Volume fraction]Hematocrit [Volume Fraction] of Blood by Automated evlzjVig83.8-50.0[facility] OhioHemoglobin Test strip Ql (U)Ordered By: Manisha Negron on 10-06-2024 Hemoglobin Ql (U)Hemoglobin [Presence] in Urine by Test stripHighNegative [facility] OhioHemoglobin [Mass/volume] in BloodOrdered By: PROVIDER TEMP on 08-00-2088Dggyrecxxb (Bld) [Mass/Vol]Hemoglobin [Mass/volume] in YllxgEii10.0-17.0[facility] OhioHepatic Panelon 10-06-2024 Albumin [Mass/Vol]3.6 g/dLNormal3.5-5.7The [facility] Physician GroupComment on above:Performed By: #### CBC, HEPATIC, BMP, LIPASE #### [facility] [address] [place] [address] USAAlbumin/Globulin [Mass ratio]1.4 {ratio}NormalThe [facility] Physician GroupComment on above:Performed By: #### CBC, HEPATIC, BMP, LIPASE #### [facility] [address] [place] [address] USAALP [Catalytic activity/Vol]63 U/GPfhbee04-352Wad [facility] Physician GroupComment on above:Performed By: #### CBC, HEPATIC, BMP, LIPASE #### [facility] [address] [place] [id number] USAALT [Catalytic activity/Vol]7 U/LNormal7-52The [facility] Physician GroupComment on above:Performed By: #### CBC, HEPATIC, BMP, LIPASE #### [facility] [address] [place] [id number] USAAST [Catalytic activity/Vol]8 U/LUtz76-40Omi [facility] Physician GroupComment on above:Performed By: #### CBC, HEPATIC, BMP, LIPASE #### [facility] [address] [place] [address] USABilirubin [Mass/Vol]0.6 mg/dLNormal0.3-1.0The [facility] Physician GroupComment on above:Performed By: #### CBC, HEPATIC, BMP, LIPASE #### [facility] [address] [place] [address] USABilirubin,Indirect0.5 mg/dLNormalThe [facility] Physician GroupComment on above:Performed By: #### CBC, HEPATIC, BMP, LIPASE #### [facility] [address] [place] [address] USABilirubin.indirect [Mass/Vol]0.10 mg/dLNormal0.03-0.18The [facility] Physician GroupComment on above:Performed By: #### CBC, HEPATIC, BMP, LIPASE #### [facility] [address] [place] [address] USAGlobulin (S) [Mass/Vol]2.5 g/dLNormalThe [facility] Physician GroupComment on above:Performed By: #### CBC, HEPATIC, BMP, LIPASE #### [place] [address] USAProtein [Mass/Vol]6.1 g/dLLow6.4-8.9The [facility] Physician GroupComment on above:Performed By: #### CBC, HEPATIC, BMP, LIPASE #### [place] [address] USAHyaline casts [#/area] in Urine sediment by Automated countOrdered By: Manisha Negron on 61-71-7428Denzwna casts Auto (Urine sed) [#/Area]Hyaline casts [#/area] in Urine sediment by Automated count0-8[facility] OhioKetones Test strip Ql (U)Ordered By: Manisha Negron on 31-72-9993Blboyem Ql (U)Ketones [Presence] in Urine by Test stripNegative [facility] OhioLeukocyte esterase [Presence] in Urine by Test stripOrdered By: Manisha Negron on 84-22-4994Nbhvaxkbm esterase Test strip Ql (U)Leukocyte esterase [Presence] in Urine by Test stripNegativeKing'S Daughters Medical Center OhioLeukocytes [#/area] in Urine sediment by Automated count Ordered By: Manisha Negron on 05-79-7703RDF Auto (Urine sed) [#/Area]Leukocytes [#/area] in Urine sediment by Automated count0-4FMercy Health Defiance HospitalLeukocytes [#/volume] corrected for nucleated erythrocytes in Blood by Automated counOrdered By: PROVIDER TEMP on 28-29-4043IVJ corrected for nucl RBC Auto (Bld) [#/Vol]Leukocytes [#/volume] corrected for nucleated erythrocytes in Blood by Automated coun4.1-10.5FMercy Health Defiance HospitalLipaseon 58-54-2538Gborts [Catalytic activity/Vol]11.0 U/THxtgfa58.0-82.0The [facility] Physician GroupComment on above:Result Comment: PERFORMED BY: [facility] [address] [place] [address] PATHOLOGIST FITNESS SPECIALIST RAKEL LAZARO M.D.Performed By: #### CBC, HEPATIC, BMP, LIPASE #### [facility] [address] [place] [address] USALipase [Enzymatic activity/volume] in Serum or Plasma Ordered By: PROVIDER TEMP on 74-36-4075Atqdqm [Catalytic activity/Vol]Lipase [Enzymatic activity/volume] in Serum or Upibfz59.0-82.0[facility] OhioLymphocytes Auto (Bld) [#/Vol]Ordered By: PROVIDER TEMP on 62-00-2801Fgxxzjtuzzf (Bld) [#/Vol]Lymphocytes [#/volume] in Blood by Automated count1.00-4.8[facility] OhioLymphocytes/100 WBC Auto (Bld) Ordered By: PROVIDER TEMP on 57-08-2947Yzoknszfuoz/100 WBC (Bld)Lymphocytes/100 leukocytes in Blood by Automated count.[facility] Auto (RBC) [Entitic mass]Ordered By: PROVIDER TEMP on 22-33-7709NBV (RBC) [Entitic mass]MCH [Entitic mass] by Automated count27.5-35.2FMercy Health Defiance HospitalMCHC Auto (RBC) [Mass/Vol]Ordered By: PROVIDER TEMP on 71-41-6260FRKM (RBC) [Mass/Vol]MCHC [Mass/volume] by Automated count32.5-35.6FMercy Health Defiance HospitalMCV Auto (RBC) [Entitic vol]Ordered By: PROVIDER TEMP on 82-74-8786DVB (RBC) [Entitic vol]MCV [Entitic volume] by Automated count83.5-101 [facility] OhioMonocyte distribution width [Entitic volume] in Blood by AutomatedOrdered By: PROVIDER TEMP on 17-38-4978Hoyckywd distribution width Auto (Bld) [Entitic vol]Monocyte distribution width [Entitic volume] in Blood by Automated0.00-20.00[facility] OhioMonocytes Auto (Bld) [#/Vol]Ordered By: PROVIDER TEMP on 53-08-8730Tmnhnaury (Bld) [#/Vol] Automated blood monocyte count0.0-0.8[facility] Monocytes/100 WBC Auto (Bld)Ordered By: PROVIDER TEMP on 36-10-6805Nmbskkisk/100 WBC (Bld)Automated monocyte %.[facility] OhioMucus [Presence] in Urine by AutomatedOrdered By: Manisha Negron on 93-98-1334Rbjou Auto Ql (U) Mucus [Presence] in Urine by AutomatedKing'S Daughters Medical Center Ohio Neutrophils Auto (Bld) [#/Vol]Ordered By: PROVIDER TEMP on 42-58-0588Gyqjcprptag (Bld) [#/Vol]Neutrophils [#/volume] in Blood by Automated count1.8-7.7FMercy Health Defiance HospitalNeutrophils/100 WBC Auto (Bld)Ordered By: PROVIDER TEMP on 53-09-1450Bdmtwimmhyx/100 WBC (Bld)Automated neutrophil %.[facility] OhioNitrite Test strip Ql (U)Ordered By: Manisha Negron on 10-06-2024 Nitrite Ql (U)Nitrite [Presence] in Urine by Test stripNegativeKing'S Daughters Medical Center OhioNo Panel InformationOrdered By: PROVIDER TEMP on 57-49-4900Qcxpzglff GFR (CKD-EPI)> 60.0 mL/MinKing'S Daughters Medical Center Ohio [facility] Creatinine Clearance (Chem91.52[facility] Nucleated erythrocytes [Presence] in Blood by Automated countOrdered By: PROVIDER TEMP on 31-88-9630Gtgqdwyhp RBC Auto Ql (Bld)Nucleated erythrocytes [Presence] in Blood by Automated count0-0.5FMercy Health Defiance Hospital Platelet mean volume Auto (Bld) [Entitic vol]Ordered By: PROVIDER TEMP on 52-31-3466Avufykkj mean volume (Bld) [Entitic vol]Platelet mean volume [Entitic volume] in Blood by Automated count6.6-10.1FMercy Health Defiance Hospital Platelets Auto (Bld) [#/Vol]Ordered By: PROVIDER TEMP on 63-92-1714Zxnchqeuh (Bld) [#/Vol]Platelets [#/volume] in Blood by Automated gvwcu762-815YbwxowcnqKing'S Daughters Medical Center OhioPotassium [Moles/volume] in Serum or PlasmaOrdered By: PROVIDER TEMP on 53-86-1593Dnpnvrras [Moles/Vol]Potassium [Moles/volume] in Serum or Plasma3.5-5.1FMercy Health Defiance HospitalProtein Test strip (U) [Mass/Vol]Ordered By: Manisha Negron on 35-49-4404Etfecqx (U) [Mass/Vol]Protein [Mass/volume] in Urine by Test stripNegativeKing'S Daughters Medical Center Ohio Protein [Mass/volume] in Serum or PlasmaOrdered By: PROVIDER TEMP on 10-06-2024 Protein [Mass/Vol]Protein [Mass/volume] in Serum or PlasmaLow6.4-8.9[facility] OhioRBC Auto (Bld) [#/Vol]Ordered By: PROVIDER TEMP on 52-85-0756IVM (Bld) [#/Vol]Erythrocytes [#/volume] in Blood by Automated count 3.90-5.60OhioHealth Nelsonville Health Centererum or plasma albumin/globulin mass ratioOrdered By: PROVIDER TEMP on 71-05-3129Qmpsbqo/Globulin [Mass ratio]Serum or plasma albumin/globulin mass ratioOhioHealth Nelsonville Health Centererum or plasma anion gap determinationOrdered By: PROVIDER TEMP on 03-82-0690Syauj gap [Moles/Vol]Serum or plasma anion gap determination6.0-15.0OhioHealth Nelson[facility] Health Centererum or plasma non-glucuronidated bilirubin measurement (mass/volume)Ordered By: PROVIDER TEMP on 55-56-3627Uadbnflxv.indirect [Mass/Vol]Serum or plasma non-glucuronidated bilirubin measurement (mass/volume) [facility] Nelson[facility] Health Centerodium [Moles/volume] in Serum or PlasmaOrdered By: PROVIDER TEMP on 24-01-1542Vtmejk [Moles/Vol]Sodium [Moles/volume] in Serum or Gktfan364-759OeclvgruqOhioHealth Nelsonville Health Centerpecific gravity Test strip (U) [Rel density]Ordered By: Manisha Negron on 23-06-6703Mdhrismi gravity (U) [Rel density]Specific gravity of Urine by Test stripHigh1.001-1.030[facility] OhioUrea nitrogen [Mass/volume] in Serum or PlasmaOrdered By: PROVIDER TEMP on 73-21-1768Badi nitrogen [Mass/Vol]Urea nitrogen [Mass/volume] in Serum or Plasma7-25[facility] OhioUrobilinogen Test strip (U) [Mass/Vol]Ordered By: Manisha Negron on 67-03-2383Yfogrpzrnhap (U) [Mass/Vol]Urobilinogen [Mass/volume] in Urine by Test stripNormalKing'S Daughters Medical Center OhioWBC Auto (Bld) [#/Vol]Ordered By: PROVIDER TEMP on 91-08-2645HRG (Bld) [#/Vol]Leukocytes [#/volume] in Blood by Automated count 4.1-10.5FMercy Health Defiance HospitalpH Test strip (U)Ordered By: Manisha Negron on 73-86-1271pX (U)pH of Urine by Test strip5.0-9.0[facility] OhioB-Type Natriuretic Peptideon 42-96-2140Ohlyqbxltvk peptide B (Bld) [Mass/Vol]43.0 pg/mLNormal5-100The [facility] Physician GroupComment on above: Result Comment: PERFORMED BY: [address] [address] PATHOLOGIST FITNESS SPECIALIST RAKEL LAZARO M.D.Performed By: #### HS TROP #### [place] [id number] USABasic Metabolic Panelon 25-38-0920Pmljm gap [Moles/Vol] 11.2 mmol/LNormal6.0-15.0The [facility] Physician GroupComment on above:Performed By: #### CBC, BMP, HS TROP, BNP #### [place] [address] USACalcium [Mass/Vol]9.3 mg/dLNormal8.6-10.3The [facility] Physician GroupComment on above:Performed By: #### CBC, BMP, HS TROP, BNP #### [place] [address] USAChloride [Moles/Vol]100 mmol/KKllkbp15-169Mbg [facility] Physician GroupComment on above:Performed By: #### CBC, BMP, HS TROP, BNP #### [place] [address] USACO2 [Moles/Vol]26.0 mmol/NPmojld22.0-31.0The [facility] Physician GroupComment on above:Performed By: #### CBC, BMP, HS TROP, BNP #### [place] [address] USACreatinine [Mass/Vol]0.91 mg/dLNormal0.70-1.30The [facility] Physician GroupComment on above:Performed By: #### CBC, BMP, HS TROP, BNP #### [place] [address] USACreatinine Clr Calc Estogikf90.47NormalThe [facility] Hospital Physician GroupComment on above:Result Comment: PERFORMED BY: [place] [address] PATHOLOGIST FITNESS SPECIALIST RAKEL LAZARO M.D.Performed By: #### CBC, BMP, HS TROP, BNP #### [place] [address] USAGFR/1.73 sq M.predicted MDRD (S/P/Bld) [Vol rate/Area] mL/min/{1.73_m2}NormalThe [facility] Hospital Physician GroupComment on above:Performed By: #### CBC, BMP, HS TROP, BNP #### [facility] [address] [place] [id number] USAGlucose [Mass/Vol]100 mg/wIIncjdp95-232Dqh [facility] Physician GroupComment on above:Result Comment: Random Glucose Reference Range is dependent on time and content of last meal. Glucose of more than 200 mg/dL in a nonstressed, ambulatory subject supports the diagnosis of Diabetes Mellitus. ADA recommended reference rangePerformed By: #### CBC, BMP, HS TROP, BNP #### [facility] [address] [place] [address] USAPotassium [Moles/Vol]4.2 mmol/LNormal3.5-5.1The [facility] Physician GroupComment on above:Performed By: #### CBC, BMP, HS TROP, BNP #### [facility] [address] [place] [address] USASodium [Moles/Vol]133 mmol/UEde858-197Oee [facility] Physician GroupComment on above:Performed By: #### CBC, BMP, HS TROP, BNP #### [facility] [address] [place] [id number] USAUrea nitrogen [Mass/Vol]18 mg/dLNormal7-25The [facility] Physician GroupComment on above:Performed By: #### CBC, BMP, HS TROP, BNP #### [facility] [address] [place] [address] USABasophils Auto (Bld) [#/Vol]Ordered By: Daisy Paul on 71-21-9968Htngjcdez (Bld) [#/Vol]Automated basophil count0.0-0.2FMercy Health Defiance HospitalBasophils/100 WBC Auto (Bld)Ordered By: Daisy Paul on 75-90-1249Gvmifoilq/100 WBC (Bld)Automated basophil %.[facility] OhioBioFire Not Detectedon 57-04-3840LciDito Not DetectedNot detected NormalNot DetecteThe [facility] Physician GroupComment on above:Result Comment: This is a duplicate RP2.1 COVID (PCR) result to be used for statistical tracking purpose only. PERFORMED BY: [facility] [address] [place] [address] PATHOLOGIST FITNESS SPECIALIST RAKEL LAZARO M.D.Performed By: #### HS TROP #### [facility] [address] [place] [address] USACOVID-19 Detected/Not DetectedOrdered By: Daisy Paul on 17-22-5153WYTT-CoV-2 (COVID-19) RNA JER+non-probe Ql (Nph)Not detectedNot DetectAvita Health System Bucyrus HospitalComment on above:This is a duplicate RP2.1 COVID (PCR) result to be used for statistical tracking purpose only. Calcium [Mass/volume] in Serum or PlasmaOrdered By: Daisy Paul on 09-20-2024 Calcium [Mass/Vol]Calcium [Mass/volume] in Serum or Plasma8.6-10.3FMercy Health Defiance HospitalCarbon dioxide, total [Moles/volume] in Serum or Plasma Ordered By: Daisy Paul on 86-58-8759DQ1 [Moles/Vol]Carbon dioxide, total [Moles/volume] in Serum or Kxjnvk03.0-31.0[facility] Chloride [Moles/volume] in Serum or PlasmaOrdered By: Daisy Paul on 93-16-0394Zwiyftmp [Moles/Vol]Chloride [Moles/volume] in Serum or Orfjtc45-732 [facility] OhioComplete Blood Count Auto Diffon 09-20-2024 Basophils (Bld) [#/Vol]0.0 10*3/uLNormal0.0-0.2[facility] Comment on above:Result Comment: PERFORMED BY: [facility] [address] [place] [address] PATHOLOGIST FITNESS SPECIALIST RAKEL LAZARO M.D.Performed By: #### CBC, BMP, HS TROP, BNP #### [facility] [address] [place] [address] USABasophils/100 WBC (Bld)0.5 %Normal.The [facility] Physician GroupComment on above:Performed By: #### CBC, BMP, HS TROP, BNP #### [place] [address] USAEosinophils (Bld) [#/Vol]0.0 10*3/uLNormal0.0-0.45The [facility] Physician GroupComment on above:Performed By: #### CBC, BMP, HS TROP, BNP #### [place] [address] USAEosinophils/100 WBC (Bld)0.1 %Normal.The [facility] Physician GroupComment on above:Performed By: #### CBC, BMP, HS TROP, BNP #### [place] [address] USAErythrocyte distribution width (RBC) [Ratio]13.9 %Normal 12.0-14.8The [facility] Physician GroupComment on above:Performed By: #### CBC, BMP, HS TROP, BNP #### [place] [address] USAHematocrit (Bld) [Volume fraction]41.1 %Fpaasm89.8-50.0The [facility] Physician GroupComment on above:Performed By: #### CBC, BMP, HS TROP, BNP #### [place] [address] USAHemoglobin (Bld) [Mass/Vol]14.1 g/wCJjgayq10.0-17.0The [facility] Physician GroupComment on above:Performed By: #### CBC, BMP, HS TROP, BNP #### [place] [address] USALymphocytes (Bld) [#/Vol]1.1 10*3/uLNormal1.00-4.8The [facility] Physician GroupComment on above:Performed By: #### CBC, BMP, HS TROP, BNP #### [place] [address] USALymphocytes/100 WBC (Bld)11.5 %Normal.The [facility] Physician GroupComment on above:Performed By: #### CBC, BMP, HS TROP, BNP #### [address] [place] [address] USAMCH (RBC) [Entitic mass]32.1 slNqnosx38.5-35.2The [facility] Physician GroupComment on above:Performed By: #### CBC, BMP, HS TROP, BNP #### [address] (RBC) [Entitic vol]93.6 jNGudfpj67.5-101The [facility] Physician GroupComment on above:Performed By: #### CBC, BMP, HS TROP, BNP #### [place] [address] USAMean Corpuscular HGB Conc34.3 g/iDKnmkli26.5-35.6The [facility] Physician GroupComment on above:Performed By: #### CBC, BMP, HS TROP, BNP #### [place] [address] USAMonocytes (Bld) [#/Vol]0.5 10*3/uLNormal0.0-0.8The [facility] Physician GroupComment on above:Performed By: #### CBC, BMP, HS TROP, BNP #### [place] [address] USAMonocytes/100 WBC (Bld)23.57 %High0.00-20.00The [facility] Physician GroupComment on above:Result Comment: For adults in ED, MDW > 20.0 may be associated with a higher risk of sepsis during the first 12 hrs of hospital admissionPerformed By: #### CBC, BMP, HS TROP, BNP #### [place] [address] USAMonocytes/100 WBC (Bld)5.4 %Normal.The [facility] Physician GroupComment on above:Performed By: #### CBC, BMP, HS TROP, BNP #### [place] [address] USANeutrophils (Bld) [#/Vol]8.1 10*3/uLHigh1.8-7.7The [facility] Physician GroupComment on above:Performed By: #### CBC, BMP, HS TROP, BNP #### [facility] [address] [place] [address] USANeutrophils/100 WBC (Bld)82.5 %Normal.The [facility] Physician GroupComment on above:Performed By: #### CBC, BMP, HS TROP, BNP #### [facility] [address] [place] [address] USANRBC%0.1 /100{WBC}Normal0-0.5The [facility] Comment on above:Performed By: #### CBC, BMP, HS TROP, BNP #### [facility] [address] [place] [address] USAPlatelet mean volume (Bld) [Entitic vol]8.9 fLNormal 6.6-10.1The [facility] Physician GroupComment on above:Performed By: #### CBC, BMP, HS TROP, BNP #### [place] [address] USAPlatelets (Bld) [#/Vol]215 10*3/uSQggxbx332-081Sjh [facility] Physician GroupComment on above:Performed By: #### CBC, BMP, HS TROP, BNP #### [place] [address] USARBC (Bld) [#/Vol]4.39 10*6/uLNormal3.90-5.60The [facility] Physician GroupComment on above:Performed By: #### CBC, BMP, HS TROP, BNP #### [place] [address] USAWBC (Bld) [#/Vol]9.8 10*3/uLNormal4.1-10.5The [facility] Physician GroupComment on above:Performed By: #### CBC, BMP, HS TROP, BNP #### [place] [address] USACreatinine [Mass/volume] in Serum or PlasmaOrdered By: Daisy Paul on 14-94-3714Bnoiyoobke [Mass/Vol]Creatinine [Mass/volume] in Serum or Plasma0.70-1.30[facility] OhioECG 12 lead ECGon 68-93-1741NUG 12 lead ECGREGENCY HOSPITAL TOLEDO Main [place] [address] [place] [address] Electrocardiograph Report Signed Patient: Shantel Melendez MR#: [id number] : 1960 Acct:[id number] Age/Sex: 63 / M ADM Date: 09/20/24 Loc: ER Room: Type: [facility] ER Attending Dr: Ordering Provider: Daisy [...] wave abnormality Confirmed by Daisy Paul MD ([id number]) on 09/20/2024 7:46:03 PM Referred By: Electronically Signed By: Daisy Paul MD Transcribed By: MUS Signed By Daisy Paul MD 11/09 [facility]Phys[facility] Physician GroupEosinophils Auto (Bld) [#/Vol] Ordered By: Daisy Paul on 79-39-9845Fgwwwruizdq (Bld) [#/Vol]Automated eosinophil count0.0-0.45[facility] OhioEosinophils/100 WBC Auto (Bld)Ordered By: Daisy Paul on 97-67-1220Fclkeevrgap/100 WBC (Bld) Automated eosinophil %.[facility] OhioErythrocyte distribution width Auto (RBC) [Ratio]Ordered By: Daisy Paul on 06-59-0728Gjerlshwzdq distribution width (RBC) [Ratio]Erythrocyte distribution width [Ratio] by Automated count12.0-14.8[facility] OhioGlucose [Mass/volume] in Serum or PlasmaOrdered By: Daisy Paul on 80-33-8801Zwtavhh [Mass/Vol] Glucose [Mass/volume] in Serum or Dxohmx27-871IpnqlwhmuKing'S Daughters [facility] Center [place] Comment on above:ADA recommended reference rangeRandom Glucose Reference Range is dependent on time and content of last meal. Glucose of more than 200 mg/dL in a nonstressed, ambulatory subject supports the diagnosisof Diabetes Mellitus. Hematocrit Auto (Bld) [Volume fraction]Ordered By: Daisy Paul on 09-20-2024 Hematocrit (Bld) [Volume fraction]Hematocrit [Volume Fraction] of Blood by Automated count38.8-50.0[facility] OhioHemoglobin [Mass/volume] in BloodOrdered By: Daisy Paul on 52-56-2419Ydagjfqule (Bld) [Mass/Vol]Hemoglobin [Mass/volume] in Blood13.0-17.0[facility] OhioLeukocytes [#/volume] corrected for nucleated erythrocytes in Blood by Automated counOrdered By: Daisy Paul on 78-22-5212TVW corrected for nucl RBC Auto (Bld) [#/Vol]Leukocytes [#/volume] corrected for nucleated erythrocytes in Blood by Automated coun4.1-10.5FMercy Health Defiance HospitalLymphocytes Auto (Bld) [#/Vol]Ordered By: Daisy Paul on 03-27-4319Kbpowlcnnse (Bld) [#/Vol]Lymphocytes [#/volume] in Blood by Automated count1.00-4.8[facility] OhioLymphocytes/100 WBC Auto (Bld)Ordered By: Daisy Paul on 43-45-2232Xdmaslneowr/100 WBC (Bld)Lymphocytes/100 leukocytes in Blood by Automated count.[facility] OhioMCH Auto (RBC) [Entitic mass] Ordered By: Daisy Paul on 98-72-4070WNA (RBC) [Entitic mass]MCH [Entitic mass] by Automated count27.5-35.2FMercy Health Defiance HospitalMCHC Auto (RBC) [Mass/Vol]Ordered By: Daisy Paul on 40-76-6994PWEL (RBC) [Mass/Vol] MCHC [Mass/volume] by Automated count32.5-35.6FMercy Health Defiance Hospital MCV Auto (RBC) [Entitic vol]Ordered By: Daisy Paul on 48-28-3944BEE (RBC) [Entitic vol]MCV [Entitic volume] by Automated count83.5-101Firelands Regional Medical CenterMonocyte distribution width [Entitic volume] in Blood by Automated Ordered By: Daisy Paul on 56-82-7722Giuxamqn distribution width Auto (Bld) [Entitic vol]Monocyte distribution width [Entitic volume] in Blood by Automated High0.00-20.00[facility] OhioComment on above:For adults in ED, MDW > 20.0 may be associated with a higher risk of sepsis during the first 12 hrs of hospital admissionMonocytes Auto (Bld) [#/Vol]Ordered By: Daisy Paul on 90-13-8641Kaxyaytbr (Bld) [#/Vol]Automated blood monocyte count 0.0-0.8[facility] OhioMonocytes/100 WBC Auto (Bld)Ordered By: Daisy Paul on 09-28-6377Pefshpipn/100 WBC (Bld)Automated monocyte %. [facility] OhioNatriuretic peptide B [Mass/Vol]Ordered By: Daisy Paul on 68-49-8840Nwgnfzyvkcv peptide B (Bld) [Mass/Vol]BNP ser/plas 5-100[facility] OhioNeutrophils Auto (Bld) [#/Vol]Ordered By: Daisy Paul on 34-13-9410Qfwcxachbfe (Bld) [#/Vol]Neutrophils [#/volume] in Blood by Automated countHigh1.8-7.7FMercy Health Defiance Hospital Neutrophils/100 WBC Auto (Bld)Ordered By: Daisy Paul on 09-20-2024 Neutrophils/100 WBC (Bld)Automated neutrophil %.[facility] OhioNo Panel InformationOrdered By: Daisy Paul on 00-50-2074Ociwjuuux GFR (CKD-EPI)> 60.0 mL/MinKing'S Daughters Medical Center OhioPharmacy Creatinine Clearance (Chem82.47[facility] OhioNucleated erythrocytes [Presence] in Blood by Automated countOrdered By: Daisy Paul on 09-20-2024 Nucleated RBC Auto Ql (Bld)Nucleated erythrocytes [Presence] in Blood by Automated count0-0.5FMercy Health Defiance HospitalPlatelet mean volume Auto (Bld) [Entitic vol]Ordered By: Daisy Paul on 66-17-9579Tqleglqi mean volume (Bld) [Entitic vol]Platelet mean volume [Entitic volume] in Blood by Automated count6.6-10.1FMercy Health Defiance HospitalPlatelets Auto (Bld) [#/Vol] Ordered By: Daisy Paul on 10-18-6781Figmxoptl (Bld) [#/Vol]Platelets [#/volume] in Blood by Automated -696OxfksivqnKing'S Daughters Medical Center Ohio Potassium [Moles/volume] in Serum or PlasmaOrdered By: Daisy Paul on 52-05-3773Lwlyagsuz [Moles/Vol]Potassium [Moles/volume] in Serum or Plasma 3.5-5.1FMercy Health Defiance HospitalRBC Auto (Bld) [#/Vol]Ordered By: Daisy Paul on 31-38-7593YCE (Bld) [#/Vol]Erythrocytes [#/volume] in Blood by Automated count3.90-5.60[facility] OhioRespiratory (Upper) Panel, PCRon 50-86-5126Vwssdckrwdr (Upper) Panel, PCRAdenovirus Not detected Bordetella parapertussis Not detected Chlamydia [...] COVID-19 Detected/Not Detected Not detected Blank Space FLUA TEST INCLUDES Influenza A tests for the following clinically FLUA TEST INCLUDES significant subtypes: FLUA TEST INCLUDES - Influenza A FLUA TEST INCLUDES - Influenza A H1 FLUA TEST INCLUDES - Influenza A H1 2009 FLUA TEST INCLUDES - Influenza A H3 Blank Space PERFORMED BY: [place] [address] PATHOLOGIST FITNESS SPECIALIST RAKEL LAZARO M.D.NormalThe [facility] Physician GroupComment on above: Performed By: #### HS TROP #### [address] [address] USARespiratory pathogens DNA and RNA panel - Nasopharynx by JER with non-probe detectionOrdered By: Daisy Paul on 79-73-2509Lauuuxbjgle pathogens DNA and RNA panel JER+non-probe (Nph)Respiratory pathogens DNA and RNA panel - Nasopharynx by JER with non-probe detectionOhioHealth Nelsonville Health Centererum or plasma anion gap determinationOrdered By: Daisy Paul on 24-18-2133Coatx gap [Moles/Vol]Serum or plasma anion gap determination6.0-15.0 [facility] Health Centerodium [Moles/volume] in Serum or PlasmaOrdered By: Daisy Paul on 15-99-3531Afcwcv [Moles/Vol]Sodium [Moles/volume] in Serum or UjlammYja773-591EczeizpesKing'S Daughters Medical Center OhioTroponin I High Sensitivityon 18-03-7122Suqhrorl I High Hvjlxqxmhwe2Vdluvm1-94Sxp [facility] Physician GroupComment on above:Result Comment: The Troponin units of report have been changed to meet the Chest Pain Accreditation requirement, element EC5.M1l2. Troponin units are changed from pg/ml to ng/L. Also, the decimal is removed and results are in whole numbers. PERFORMED BY: [address] [address] PATHOLOGIST FITNESS SPECIALIST RAKEL LAZARO M.D.Performed By: #### HS TROP #### [address] [address] USATroponin I High Ucatwvooeaw9Phxand8-37Jpr [facility] Physician GroupComment on above:Result Comment: The Troponin units of report have been changed to meet the Chest Pain Accreditation requirement, element EC5.M1l2. Troponin units are changed from pg/ml to ng/L. Also, the decimal is removed and results are in whole numbers. PERFORMED BY: [place] [address] PATHOLOGIST FITNESS SPECIALIST RAKEL LAZARO M.D.Performed By: #### CBC, BMP, HS TROP, BNP #### [place] [address] USATroponin I.cardiac [Mass/volume] in Serum or Plasma by Detection limit <= 0.01 ng/Ordered By: Daisy Paul on 19-53-0035Pwxfsvip I.cardiac DL <= 0.01 ng/mL [Mass/Vol]Troponin I.cardiac [Mass/volume] in Serum or Plasma by Detection limit <= 0.01 ng/0-[facility] Comment on above:The Troponin units of report have been changed to meet the Chest Pain Accreditation requirement, element EC5.M1l2. Troponin units are changed from pg/ml to ng/L. Also, the decimal is removed and results are in whole numbers.Urea nitrogen [Mass/volume] in Serum or PlasmaOrdered By: Daisy Paul on 49-62-5579Pxym nitrogen [Mass/Vol]Urea nitrogen [Mass/volume] in Serum or Plasma01-09[facility] OhioWBC Auto (Bld) [#/Vol] Ordered By: Daisy Paul on 77-07-5828CAA (Bld) [#/Vol]Leukocytes [#/volume] in Blood by Automated count4.1-10.5FMercy Health Defiance HospitalX-ray report Ordered By: Gee Hutchins on 10-10-0429Bryum reportREGENCY HOSPITAL TOLEDO Main [place] [id number] XRay Report Signed Patient: Shantel Melendez MR#: [id number] : 1960 Acct:[id number] Age/Sex: 63 / M ADM Date: 5 Loc: ER Room: Type: [facility] ER Attending Dr: Copies to: Daisy Paul [...] OPACITY POSSIBLE ATYPICAL PNEUMONIA OR ATELECTASIS, CONSIDER FOLLOW- UPTO RESOLUTION Impression dictated by: Gee Hutchins M.D.09/20/2024 12:47 PM Dictation Location: RADIO-PC-29 Transcribed By: MARISA 09/20/24 1247 Dictated By: Gee Hutchins MD 09/20/241244 Signed By: 09/20/24 1247 [facility] Work Phone: XR chest 2V*on 61-53-2840HU chest 2V*[facility] [place] [address] XRay Report Signed Patient: Shantel Melendez MR#: [id number] : 1960 Acct:[id number] Age/Sex: 63 / M ADM Date: 09/20/24 Loc: ER Room: Type: [facility] ER Attending Dr: Copies to: Daisy Paul [...] Hutchins MD 09/20/24 1245 Signed By: 09/20/24 1247TelmaWashington Regional Medical Center Physician GroupUS ankle/arm indiceson 40-79-9427JV ankle/arm indicesCleveland Clinic Children's Hospital for Rehabilitation Vascular [address] [place] [address] Ultrasound Report Signed Patient: Shantel Melendez MR#: [id number] : 1960 Acct:[id number] Age/Sex: 63 / M ADM Date: 09/11/24 Loc: [facility] Room: Type: [facility] Attending Dr: Ruddy Harvey MD Ordering [...] Filipe Hess M.D.09/16/2024 2:46 PM Dictation Location: [place] [address] Tech: Agueda Helm Transcribed By: MARISA 09/16/24 1446 Dictated By: Filipe Hess MD 09/16/24 1445 Signed By: 09/16/24 1446Phys[facility] Physician GroupX-ray reportOrdered By: Yung Pozo on 33-12-9262Cqdyd reportREGENCY HOSPITAL TOLEDO Main [place] [address] [place] [address] XRay Report Signed Patient: Shnatel Melendez MR#: [id number] : 1960 Acct:[id number] Age/Sex: 63 / M ADM Date: 2 5 Loc: XD Room: Type: REG CLI Attending Dr: Solomon Narayanan PA-C Copies [...] Pozo Jr., D.O.06/24/2024 8:08 PM Dictation Location: [place] [address] Transcribed By: [facility] 06/24/242007 Dictated By: Yung Pozo Jr, DO 06/24/242005 Signed By: 06/24/242007 [facility] OhioXR cervical spine LAT/FLX/EXTon 36-26-2350DS cervical spine LAT/FLX/EXTREGENCY [facility] [address] XRay Report Signed Patient: Shantel Melendez MR#: [id number] : 1960 Acct:[id number] Age/Sex: 63 / M ADM Date: 06/24/24 Loc: XD Room: Type: REG CLI Attending Dr: Solomon Narayanan PA-C Copies [...] Yung Pozo Jr, DO 06/24/242005 Signed By: 06/24/[address] [place] [address] Physician GroupBasic metabolic 2000 panelon 90-51-6412Uqadn gap [Moles/Vol]14 mmol/L10 - 20 mmol/[facility] HospitalCalcium [Mass/Vol]9 mg/dL8.6 - 10.6 mg/dLUnCleveland Clinic Avon HospitalChloride [Moles/Vol]103 mmol/L98 - 107 mmol/[facility] HospitalCO2 [Moles/Vol]26 mmol/L21 - 32 mmol/[facility] Creatinine [Mass/Vol]0.86 mg/dL0.50 - 1.30 mg/dLUnCleveland Clinic Avon HospitaleGFR- PINFUMcKitrick HospitalComment on above: Calculations of estimated GFR are performed using the 2020 CKD-EPI Study Refit equation without therace variable for the IDMS-Traceable creatinine methods. https://jasn.asnjournals.org/content/early//ASN.6671639941 Glucose [Mass/Vol]159 mg/fUMkjo00 - 99 mg/dLUnCleveland Clinic Avon Hospital Interpretation and review of laboratory resultsAbnoSelect Medical Specialty Hospital - Cincinnati NorthPotassium [Moles/Vol]4.5 mmol/L3.5 - 5.3 mmol/[facility] HospitalSodium [Moles/Vol]138 mmol/L136 - 145 mmol/[facility] HospitalUrea nitrogen [Mass/Vol]14 mg/dL6 - 23 mg/dLUnCleveland Clinic Avon HospitalUnCleveland Clinic Avon HospitalAnion gap [Moles/Vol]14 mmol/LNormal 10-20UnProMedica Defiance Regional HospitalComment on above:Performed By: #### 29942-8 #### TITUS Mercado ([id number]) [facility] ([facility]) [address] [place], [place] [address]Meidfjv [Mass/Vol]9.0 mg/dLNormal8.6-10.6[facility] Liverpool City HospitalComment on above:Performed By: #### 19350-2 #### TITUS Mercado (86641) [facility] ([facility]) [address] [place], [place] [address]Zwulxsul [Moles/Vol]103 mmol/DXsigso93-139HuqnlcobxpProMedica Defiance Regional HospitalComment on above:Performed By: #### 29753-1 #### TITUS Mercado (74745) [facility] ([facility]) [address] [place], [place] [address]WZ0 [Moles/Vol]26 mmol/ROodymu72-86IsneypiapuProMedica Defiance Regional HospitalComment on above:Performed By: #### 83647-5 #### TITUS Mercado ([id number]) [facility] ([facility]) [address] [place], [place] [address]Tvhgkvnpyx [Mass/Vol]0.86 mg/dLNormal0.50-1.30UnProMedica Defiance Regional HospitalComment on above:Performed By: #### 42014-0 #### TITUS Mercado (30805) [facility] ([facility]) [address] [place], [place] [address]MFR/1.73 sq M.predicted MDRD (S/P/Bld) [Vol rate/Area] mL/min/{1.73_m2}Normal>60UnProMedica Defiance Regional HospitalComment on above:Result Comment: Calculations of estimated GFR are performed using the 2020 CKD-EPI Study Refit equation without the race variable for the IDMS-Traceable creatinine methods. https://jasn.asnjournals.org/content//ASN.0047699032Ecezscqag By: #### 92829-1 #### TITUS Mercado (59394) [facility] ([facility]) [address] [place], [place] [address]Otisini [Mass/Vol]159 mg/gRRlxo68-49DzdbudpkxlProMedica Defiance Regional HospitalComment on above:Performed By: #### 08699-5 #### TITUS Mercado ([id number]) [facility] ([facility]) [address] [place] [address]Ilfklmtqw [Moles/Vol]4.5 mmol/LNormal3.5-5.3UnProMedica Defiance Regional HospitalComment on above:Performed By: #### 42833-3 #### TITUS Mercado ([id number]) [facility] ([facility]) [address] [place] [address]Hskpyz [Moles/Vol]138 mmol/JGwnmlw931-916SmrwxhpqihProMedica Defiance Regional HospitalComment on above:Performed By: #### 19921-6 #### TITUS Mercado ([id number]) [facility] ([facility]) [address] [place] [address]Jgkw nitrogen [Mass/Vol]14 mg/dLNormal6-23UnProMedica Defiance Regional HospitalComment on above:Performed By: #### 32770-3 #### TITUS Mercado ([id number]) [facility] ([facility]) [address] [place] [address]QCR panel Auto (Bld)on 32-75-4129Lxzujlvalqh distribution width (RBC) [Ratio]13.3 %11.5 - 14.5 %[facility] Hematocrit (Bld) [Volume fraction]38 %Low41.0 - 52.0 %[facility] Health CenterHemoglobin (Bld) [Mass/Vol]12.9 g/dLLow13.5 - 17.5 g/dLUnCleveland Clinic Avon HospitalInterpretation and review of laboratory resultsAbnormal [facility] Community HospitalH (RBC) [Entitic mass]31.9 pg26.0 - 34.0 pg [facility] Health CenterMCHC (RBC) [Mass/Vol]33.9 g/dL32.0 - 36.0 g/dL [facility] Health CenterMCV (RBC) [Entitic vol]94 fL80 - 100 fL [facility] Health CenterNucleated RBC/100 WBC (Bld) [Ratio]0 % [facility] Health CenterPlatelets (Bld) [#/Vol]221 10*3/[facility] Medical CenterRBC (Bld) [#/Vol]4.05 10*6/[facility] HospitalWBC (Bld) [#/Vol]9.6 10*3/[facility] Medical CenterUnCleveland Clinic Avon HospitalErythrocyte distribution width (RBC) [Ratio]13.3 %Normal 11.5-14.5UnProMedica Defiance Regional HospitalComment on above:Performed By: #### 94338-8 #### TITUS Mercado ([id number]) [facility] ([facility]) [address] [place] [address] 35131Wcaahtpiqx (Bld) [Volume fraction]38.0 %Low41.0-52.0 [facility] HospitalComment on above:Performed By: #### 47206-3 #### TITUS Mercado (69729) [facility] ([facility]) [address] [place] [address] 90248Wzojxvnmna (Bld) [Mass/Vol]12.9 g/dLLow13.5-17.5UnProMedica Defiance Regional HospitalComment on above:Performed By: #### 18180-3 #### TITUS Mercado (82226) [facility] ([facility]) [address] [place] [address] 97992FSD (RBC) [Entitic mass]31.9 ttLvtigs78.0-34.0UnProMedica Defiance Regional HospitalComment on above:Performed By: #### 97868-6 #### TITUS Mercado (56352) [facility] ([facility]) [address] [place] [address] 37412EPRE (RBC) [Mass/Vol]33.9 g/cJLhlxwz91.0-36.0UnProMedica Defiance Regional HospitalComment on above:Performed By: #### 06091-7 #### TITUS Mercado ([id number]) [facility] ([facility]) [address] [place] [address] 32716ERX (RBC) [Entitic vol]94 dRYqobih94-885KgentkucdfProMedica Defiance Regional HospitalComment on above:Performed By: #### 37525-3 #### TITUS Mercado ([id number]) [facility] ([facility]) [address] [place] [address] 12259Pfrbtdipl RBC/100 WBC (Bld) [Ratio]0.0 /100 WBCsNormal0.0-0.0 [facility] HospitalComment on above:Performed By: #### 25509-8 #### TITUS Mercado (64696) [facility] ([facility]) [address] [place] [address] 75516Ebhavatzg (Bld) [#/Vol]221 x10*3/bSCbuvnr529-567GtjohexaaqProMedica Defiance Regional HospitalComment on above:Performed By: #### 65572-9 #### TITUS Mercado (06175) [facility] ([facility]) [address] [place] [address] 19934JFU (Bld) [#/Vol]4.05 x10*6/uLLow4.50-5.90UnProMedica Defiance Regional HospitalComment on above:Performed By: #### 78101-2 #### TITUS Mercado ([id number]) [facility] ([facility]) [address] [place] [address] 71738QIB (Bld) [#/Vol]9.6 x10*3/uLNormal4.4-11.3[facility] HospitalComment on above:Performed By: #### 97303-0 #### TITUS Mercado (09209) [facility] ([facility]) [address] [place] [address] 96806LN CERVICAL SPINE 2-3 VIEWSon 44-77-7932TI CERVICAL SPINE 2-3 VIEWSInterpreted By: Shubham Eubanks, STUDY: Cervical spine dated 04/10/2024. INDICATION: Signs/Symptoms:Post surgery COMPARISON: None. ACCESSION NUMBER(S): [id number] ORDERING CLINICIAN: DORETHA HARRIS TECHNIQUE: Two views [...] Shubham Eubanks 04/10/2024 10:05 AM Dictation workstation: [id number]. Charles HospitalComment on above:Order Comment: Please have patient uprightXR Cervical spine 2 or 3 Viewson 26-24-0922Epecmvbo and degenerative change as above without osseous injury evident. MACRO: None Signed by: Shubham Eubanks 04/10/2024 10:05 AM Dictation workstation: [id number] By: Shubham Eubanks, STUDY: Cervical spine dated 04/10/2024. INDICATION: Signs/Symptoms:Post surgery COMPARISON: None. ACCESSION NUMBER(S): [id number] ORDERING CLINICIAN: DORETHA HARRIS TECHNIQUE: Two views [...] seen at the right neck soft tissues. MMShubham Cowan MD - 04/10/2024 Interpreted By: Shubham Eubanks, STUDY: Cervical spine dated 04/10/2024. INDICATION: Signs/Symptoms:Post surgery COMPARISON: None. ACCESSION NUMBER(S): [id number] ORDERING CLINICIAN: DORETHA HARRIS TECHNIQUE: Two views [...] Shubham Eubanks 04/10/2024 10:05 AM Dictation workstation: [id number] [facility] Work Phone: Radiology Study observation (narrative)[facility] Work Phone: XR Cervical spine 2 or 3 ViewsOrdered By: Shubham Eubanks on 03-71-8235VeekhnszqhCleveland Clinic Avon Hospital Work Phone: Blood type and Indirect antibody screen panel (Bld)on 57-06-5128DWD group Nom (Bld)AUnSamaritan Hospital group antibody screen QlNegativeUnCleveland Clinic Avon HospitalD Ag Ql (Bld)Positive [facility] CenterUnCleveland Clinic Avon HospitalABO group Nom (Bld)ANoThe University of Toledo Medical CenterComment on above:Order Comment: As needed for scheduled for aortic, liver, cardiac, or thoracic surgery OR hgb<7.5mg/dl and no active type and screen.Performed By: #### 33346-9 #### TITUS Mercado ([id number]) [facility] ([facility]) [address] [place], [place] [address]Blood group antibody screen QlNegativeNoThe University of Toledo Medical CenterComment on above:Order Comment: As needed for scheduled for aortic, liver, cardiac, or thoracic surgery OR hgb<7.5mg/dl and no active type and screen.Performed By: #### 01183-5 #### TITUS Mercado ([id number]) [facility] ([facility]) [address] [place], [place] [address]D Ag Ql (Bld)PositiveSt. Charles HospitalComment on above:Order Comment: As needed for scheduled for aortic, liver, cardiac, or thoracic surgery OR hgb<7.5mg/dl and no active type and screen.Performed By: #### 18780-2 #### TITUS Mercado (91823) [facility] ([facility]) [address] [place] [address] 25092SX FLUORO IMAGES NO CHARGEon 06-48-3201ZO FLUORO IMAGES NO CHARGEThese images are not reportable by radiology and will not be interpreted by Radiologists.NormalUnProMedica Defiance Regional HospitalGas and Carbon monoxide and Electrolytes panel (BldA)on 78-85-6416Wsoyi gap 4 (BldA) [Moles/Vol]8LowOhioHealth Nelsonville Health CenterBase excess Calc (Bld) [Moles/Vol]-1.9000 mmol/L-2.0 - 3.0 mmol/[facility] Calcium.ionized (BldA) [Moles/Vol]1.24 mmol/L1.10 - 1.33 mmol/[facility]ina HospitalChloride (BldA) [Moles/Vol]104 mmol/L98 - 107 mmol/L [facility] CenterCO2 (Bld) [Partial pressure]46 mm[Hg]High [facility] CenterGlucose [Mass/Vol]132 mg/fFEkoq94 - 99 mg/dL [facility] CenterHCO3 (Bld) [Moles/Vol]24.3 mmol/L22.0 - 26.0 mmol/[facility]ina HospitalHematocrit Est (Bld) [Volume fraction]39 %Low41.0 - 52.0 %[facility] Health CenterHemoglobin (Bld) [Mass/Vol] 12.9 g/dLLow13.5 - 17.5 g/dLOhioHealth Nelsonville Health CenterInhaled oxygen zjaymazsietzb11 %[facility] CenterInterpretation and review of laboratory resultsAbnormalUniversRiverside Hospital CorporationLactate (BldA) [Moles/Vol]0.7 mmol/L0.4 - 2.0 mmol/[facility] HospitalOxygen (Bld) [Partial pressure]156 mm[Hg][facility] Oxyhemoglobin (BldA) [Mass fraction]95 %94.0 - 98.0 %[facility] Health CenterpH (Bld)7.33 [pH]Low7.38 - 7.42 [facility] Potassium (BldA) [Moles/Vol]4.5 mmol/L3.5 - 5.3 mmol/[facility] HospitalSodium (BldA) [Moles/Vol]132 mmol/OCpp244 - 145 mmol/[facility] HospitalUnCleveland Clinic Avon HospitalAnion gap 4 (BldA) [Moles/Vol]8 mmo/HRcl09-99JyzcxyakyaProMedica Defiance Regional HospitalComment on above:Performed By: #### 12082-1 #### TITUS Mercado (46793) [facility] ([facility]) [address] [place] [address] 15566Qath excess Calc (Bld) [Moles/Vol]-1.9000 mmol/LNormal -2.0-3.0UnProMedica Defiance Regional HospitalComment on above:Performed By: #### 08452-9 #### TITUS Mercado (43747) [facility] ([facility]) [address] [place] [address] 23828Rbzobpw.ionized (BldA) [Moles/Vol]1.24 mmol/LNormal1.10-1.33 [facility] HospitalComment on above:Performed By: #### 62629-3 #### TITUS Mercado (92452) [facility] ([facility]) [address] [place] [address] 84012Ewzkhlps (BldA) [Moles/Vol]104 mmol/VYfqdro22-602OhzjwgouuqEast Liverpool City HospitalComment on above:Performed By: #### 93502-3 #### TITUS Mercado (02935) [facility] ([facility]) [address] [place] [address] 52909QB2 (Bld) [Partial pressure]46 mm RkHyql69-73XzoudmrpmiEast Liverpool City HospitalComment on above:Performed By: #### 14682-4 #### TITUS Mercado (37260) [facility] ([facility]) [address] [place] [address] 86691Oyvmrqq [Mass/Vol]132 mg/rQSipv71-37YbjndgobebProMedica Defiance Regional HospitalComment on above:Performed By: #### 15634-9 #### TITUS Mercado (33585) [facility] ([facility]) [address] [place] [address] 82111UOQ4 (Bld) [Moles/Vol]24.3 mmol/HEdvrkw19.0-26.0UnProMedica Defiance Regional HospitalComment on above:Performed By: #### 89017-0 #### TITUS Mercado (40166) [facility] ([facility]) [address] [place] [address] 57410Gphtmxcxcv Est (Bld) [Volume fraction]39.0 %Low41.0-52.0 [facility] HospitalComment on above:Performed By: #### 53202-3 #### TITUS Mercado (17227) [facility] ([facility]) [address] [place] [address] 17529Ozyblrtbax (Bld) [Mass/Vol]12.9 g/dLLow13.5-17.5[facility] HospitalComment on above:Performed By: #### 68336-8 #### TITUS Mercado (61248) [facility] ([facility]) [address] [place] [address] 80842Xoctsfs oxygen zfbntxxotmzfk63 %NormalUnProMedica Defiance Regional HospitalComment on above:Performed By: #### 65777-7 #### TITUS Mercado (94280) [facility] ([facility]) [address] [place] [address] 40022Qvqhbrr (BldA) [Moles/Vol]0.7 mmol/LNormal0.4-2.0[facility] HospitalComment on above:Performed By: #### 72668-7 #### TITUS Mercado (82214) [facility] ([facility]) [address] [place] [address] 06653Yldbdg (Bld) [Partial pressure]156 mm HbRrvl66-63OzsewqktugProMedica Defiance Regional HospitalComment on above:Performed By: #### 87931-0 #### TITUS Mercado (69156) [facility] ([facility]) [address] [place], [place] [address]Ykojjssujuxbx (BldA) [Mass fraction]95.0 %Vdkyha87.0-98.0 [facility] HospitalComment on above:Performed By: #### 94081-9 #### TITUS Mercado (27969) [facility] ([facility]) [address] [place] [address] 65914iK (Bld)7.33 [pH]Low7.38-7.42UnProMedica Defiance Regional HospitalComment on above:Performed By: #### 65357-4 #### TITUS Mercado (18252) [facility] ([facility]) [address] [place] [address] 66484Dbjabmozg (BldA) [Moles/Vol]4.5 mmol/LNormal3.5-5.3[facility] HospitalComment on above:Performed By: #### 84067-8 #### TITUS Mercado (74244) [facility] ([facility]) [address] [place] [address] 59121Iidwxm (BldA) [Moles/Vol]132 mmol/KZga519-828FjwemqiytuEast Liverpool City HospitalComment on above:Performed By: #### 96131-0 #### TITUS Mercado (70313) [facility] ([facility]) [address] [place] [address] 37379AQ tomography Unspecified body regionon 09-90-0413Oshnm images are not reportable by radiology and will not be interpreted by Radiologists.IMAGINGCT TRANSFER OF OUTSIDE FILMSon 87-04-3502JP TRANSFER OF OUTSIDE FILMSOutside images for comparison or treatment purposes, not interpreted by Radiologists.NormalUnDetwiler Memorial Hospitaltudy Interpretation of outside studyon 36-80-9466Yulmzbp images for comparison or treatment purposes, not interpreted by Radiologists.IMAGINGBlood type and Indirect antibody screen panel (Bld)on 18-21-7221NBM group Nom (Bld)ANormalUniAvita Health System Bucyrus HospitalComment on above:Performed By: #### 11113-5 #### TITUS ORTIZTZSIMI Mercado (64054) [facility] ([facility]) [address] [place], [place] [address]Rvcdw group antibody screen QlNegativeSt. Charles HospitalComment on above:Performed By: #### 38014-1 #### TITUSCAROLIN ELENASIMI L (46107) [facility] ([facility]) [address] [place], [place] [address]S Ag Ql (Bld)PositiveSt. Charles HospitalComment on above:Performed By: #### 76701-8 #### TITUS ELENAER L (13926) [facility] ([facility]) [address] [place], [place] [address]XLNF BONE DENSITYon 40-66-0078XCYL BONE DENSITYInterpreted By: Ruddy Lopez, STUDY: DEXA BONE DENSITY02/13/2024 10:50 am INDICATION: Signs/Symptoms:r/o osteoporosis, NEED AXIAL SKELETON IMAGES.. The patient is a 63 y/o year old M. ,M54.12 Radiculopathy, cervical region COMPARISON: None. ACCESSION NUMBER(S): [id number] ORDERING CLINICIAN: DORETHA HARRIS TECHNIQUE: DEXA BONE [...] Ruddy Lopez 12/29/2024 8:09 AM Dictation workstation: [id number] Health Akron CampusDXA Skeletal system Views for bone densityon 18-06-2534Oyyim images are not reportable by radiology and will not be interpreted by Radiologists.IMAGINGXR CERVICAL SPINE COMPLETE 6+ VIEWSon 58-31-8279ET CERVICAL SPINE COMPLETE 6+ VIEWSInterpreted By: Romulo Medrano, STUDY: XR CERVICAL SPINE COMPLETE 6+ VIEWS; ; 02/13/2024 11:10 am INDICATION: Signs/Symptoms:r/o instability, assess alignment. ,M54.12 Radiculopathy, cervical region COMPARISON: None. ACCESSION NUMBER(S): [id number] ORDERING CLINICIAN: DORETHA HARRIS FINDINGS: C-spine, 6 [...] Romulo Medrano 02/19/2024 6:35 PM Dictation workstation: [id number] Health Akron CampusComment on above:Order Comment: Please obtain with flexion and extensionXR CHEST 2 VIEWSon 86-83-4450LU CHEST 2 VIEWSInterpreted By: Romulo Medrano, STUDY: XR CHEST 2 VIEWS; 02/13/2024 11:10 am INDICATION: Signs/Symptoms:Preop surgery 02/[address] Steven MD. ,M54.12 Radiculopathy, cervical region,M81.0 Age-related osteoporosis without current pathological fracture COMPARISON: None. ACCESSION NUMBER(S): [id number] ORDERING CLINICIAN: DORETHA HARRIS FINDINGS: CARDIOMEDIASTINAL SILHOUETTE: Cardiomediastinal silhouette is normal in size and configuration. LUNGS: Lungs are clear. ABDOMEN: No remarkable upper abdominal findings. BONES: No acute osseous changes. IMPRESSION: 1. No evidence of acute cardiopulmonary process. MACRO: None Signed by: Romulo Medrano 02/19/2024 6:53 PM Dictation workstation: [id number] Health Akron CampusEC 12 leadOrdered By: Toib Rico on 91-71-5123Dgyuog Vyyg02QGW [facility] Work Phone: [phone] Pnrv76qxcafwjQqmtoihlwzBarnesville Hospital Work Phone: [phone] Nhvcsj919 [facility] Work Phone: [phone] Onset90 [facility] Work Phone: [phone] Pinjhpst856 [facility] Work Phone: [phone] Mdiqx862 [facility] Work Phone: 1()[phone] Fdfly69gsdtaMcyqbukwowUniversity Hospitals [facility] Center Work Phone: [phone] Sncjtyka52 [facility] Work Phone: [phone] Tvrpejdo445 [facility] Work Phone: [phone] Calculation(Bazett)415 [facility] Work Phone: 1()[phone] Rhzvjlvvsi233 [facility] Work Phone: 1()[phone] [place]-3degKettering Health Springfield Work Phone: 1()[phone] Tywa68fstssfqHhkqkdisnsOhioHealth [facility]ering[facility] Work Phone: 1()844-3800T Dbdukb108 [facility] Work Phone: 1()[phone] Vfiv01OXJBokywiexqrMiami Valley Hospital Work Phone: [phone] Clinic [facility]on Hospital Work Phone: ECG 12 leadon 02-46-9427Qtwhv rhythm with 1st degree AV block Otherwise normal ECG When compared with ECG of 30-JAN-2019 19:26, heart rate decreased Confirmed by Tobi Rico ([id number]) on 02/12/2024 12:20:00 PMTobi Keller MD - 02/12/2024 Sinus rhythm with 1st degree AV block Otherwise normal ECG When compared with ECG of 30-JAN-2019 19:26, heart rate decreased Confirmed by Tobi Rico ([id number]) on 02/12/2024 12:20:00 PM [facility] Work Phone: basic metabolic 2000 panelon 99-87-6024Cccqw gap [Moles/Vol]13 mmol/IYadvxq45-32XtxahcgoeiEast [facility] City Hospital Comment on above:Performed By: #### 18748-9 #### TITUS Mercado (41768) [facility] ([facility]) [address] [place], [place] [address]Stokjal [Mass/Vol]9.6 mg/dLNormal8.6-10.6[facility] HospitalComment on above:Performed By: #### 49921-8 #### TITUS Mercado (60689) [facility] ([facility]) [address] [place], [place] [address]Pknmzvfv [Moles/Vol]104 mmol/TJhsmit99-880GxunhzwdtnProMedica Defiance Regional HospitalComment on above:Performed By: #### 89238-3 #### TITUS Mercado (29329) [facility] ([facility]) [address] [place], [place] [address]XB4 [Moles/Vol]26 mmol/UVycgkl20-83OhuphwtvvoProMedica Defiance Regional HospitalComment on above:Performed By: #### 32504-6 #### TITUS Mercado (25536) [facility] ([facility]) [address] [place], [place] [address]Hquwujtira [Mass/Vol]0.89 mg/dLNormal0.50-1.30UnProMedica Defiance Regional HospitalComment on above:Performed By: #### 57753-7 #### TITUS Mercado (74920) [facility] ([facility]) [address] [place], [place] [address]SLS/1.73 sq M.predicted MDRD (S/P/Bld) [Vol rate/Area] mL/min/{1.73_m2}Normal>60UnProMedica Defiance Regional HospitalComment on above:Result Comment: Calculations of estimated GFR are performed using the 2020 CKD-EPI Study Refit equation without the race variable for the IDMS-Traceable creatinine methods. https://jasn.asnjournals.org/content/early//ASN.1388416371Ekvrcwyel By: #### 74300-3 #### TITUS Mercado (73088) [facility] ([facility]) [address] [place] [address] 67372Yudkvoo [Mass/Vol]77 mg/lLHsxpbv03-74WpxlvqnutvProMedica Defiance Regional HospitalComment on above:Performed By: #### 37821-2 #### TITUS Mercado (72844) [facility] ([facility]) [address] [place] [address] 62023Vgdsrvsvv [Moles/Vol]4.6 mmol/LNormal3.5-5.3UnProMedica Defiance Regional HospitalComment on above:Performed By: #### 78668-2 #### TITUS Mercado (94363) [facility] ([facility]) [address] [place] [address] 17754Otbqxk [Moles/Vol]138 mmol/MMnmjny219-269YnpmrozmbhProMedica Defiance Regional HospitalComment on above:Performed By: #### 07191-7 #### TITUS Mercado (17896) [facility] ([facility]) [address] [place] [address] 80320Ohrt nitrogen [Mass/Vol]9 mg/dLNormal6-23UnProMedica Defiance Regional HospitalComment on above:Performed By: #### 05860-8 #### TITUS Mercado (99511) [facility] ([facility]) [address] [place] [address] 44390Rgazm type and Indirect antibody screen panel (Bld)on 91-97-1239KMS group Nom (Bld)ANoThe University of Toledo Medical CenterComment on above:Performed By: #### 58359-9 #### TITUS Mercado (47225) [facility] ([facility]) [address] [place] [address] 75173Xnoop group antibody screen QlNegativeSt. Charles HospitalComment on above:Performed By: #### 75186-7 #### TITUS Mercado (01041) [facility] ([facility]) [address] [place], [place] [address]I Ag Ql (Bld)PositiveSt. Charles HospitalComment on above:Performed By: #### 66587-2 #### TITUS Mercado (21655) [facility] ([facility]) [address] [place] [address] 58345TGN W Auto Differential panel (Bld)on 61-58-2208Pozdyfdij (Bld) [#/Vol]0.04 x10*3/uLNormal0.00-0.10[facility] HospitalComment on above:Performed By: #### 31154-3 #### TITUS Mercado (00178) [facility] ([facility]) [address] [place] [address] 66988Gevfdzweh/100 WBC (Bld)0.8 %Normal0.0-2.0[facility] HospitalComment on above:Performed By: #### 52863-0 #### TITUS Mercado (99829) [facility] ([facility]) [address] [place] [address] 92795Ttrgrmvkmmg (Bld) [#/Vol]0.05 x10*3/uLNormal0.00-0.70 [facility] HospitalComment on above:Performed By: #### 24745-2 #### TITUS Mercado (63559) [facility] ([facility]) [address] [place] [address] 11894Krafzpdzbms/100 WBC (Bld)1.0 %Normal0.0-6.0UnProMedica Defiance Regional HospitalComment on above:Performed By: #### 61638-0 #### TITUS Mercado (82136) [facility] ([facility]) [address] [place] [address] 65732Gtoxkuzaogw distribution width (RBC) [Ratio]13.2 %Normal 11.5-14.5UnProMedica Defiance Regional HospitalComment on above:Performed By: #### 80737-6 #### TITUS Mercado (64348) [facility] ([facility]) [address] [place] [address] 32069Utqmfcjods (Bld) [Volume fraction]39.6 %Low41.0-52.0 [facility] HospitalComment on above:Performed By: #### 25672-0 #### TTIUS Mercado (27740) [facility] ([facility]) [address] [place] [address] 10426Mbddfifeuo (Bld) [Mass/Vol]13.2 g/dLLow13.5-17.5UnProMedica Defiance Regional HospitalComment on above:Performed By: #### 45133-6 #### TITUS Mercado (74684) [facility] ([facility]) [address] [place] [address] 31762Dcipnjfs granulocytes (Bld) [#/Vol]0.00 x10*3/uLNormal 0.00-0.70UnProMedica Defiance Regional HospitalComment on above:Performed By: #### 37844-8 #### TITUS Mercado (41836) [facility] ([facility]) [address] [place] [address] [id number] granulocytes/100 WBC (Bld)0.0 %Normal0.0-0.9 [facility] CenterComment on above:Result Comment: Immature Granulocyte Count (IG) includes promyelocytes, myelocytes and metamyelocytes but does not include bands. Percent differential counts (%) should be interpreted in the context of the absolute cell counts (cells/UL). Performed By: #### [id number] #### TITUS Mercado ([id number]) [facility] ([facility]) [address] [place], [place] [address]Pokhynoonnn (Bld) [#/Vol]1.74 x10*3/uLNormal1.20-4.80 [facility] HospitalComment on above:Performed By: #### [id number] #### TITUS Mercado ([id number]) [facility] ([facility]) [address] [place], [place] [address]Ivwqxclryen/100 WBC (Bld)33.1 %Uzazoe19.0-44.0[facility] HospitalComment on above:Performed By: #### [id number] #### TITUS Mercado ([id number]) [facility] ([facility]) [address] [place], [place] [address]LNU (RBC) [Entitic mass]31.5 wkAcxwyv48.0-34.0[facility] HospitalComment on above:Performed By: #### 50896-7 #### TITUS Mercado ([id number]) [facility] ([facility]) [address] [place], [place] [address]FWPA (RBC) [Mass/Vol]33.3 g/rRTsrpcn14.0-36.0[facility] HospitalComment on above:Performed By: #### 98619-0 #### TITUS Mercado ([id number]) [facility] ([facility]) [address] [place], [place] [address]OEU (RBC) [Entitic vol]95 nBTfvlls29-259AzrpduvhlpProMedica Defiance Regional HospitalComment on above:Performed By: #### 86619-3 #### TITUS Mercado ([id number]) [facility] ([facility]) [address] [place], [place] [address]Wtnxlbwon (Bld) [#/Vol]0.30 x10*3/uLNormal0.10-1.00UnProMedica [facility] HospitalComment on above:Performed By: #### 29488-6 #### TITUS Mercado ([id number]) [facility] ([facility]) [id number] [place] [address]Yrlujpkks/100 WBC (Bld)5.7 %Normal2.0-10.0UnProMedica [facility] Regional HospitalComment on above:Performed By: #### 14501-4 #### TITUS Mercado ([id number]) [facility] ([facility]) [id number] [place] [address] 12883Udvoeqfrcto (Bld) [#/Vol]3.13 x10*3/uLNormal1.20-7.70 [facility] HospitalComment on above:Result Comment: Percent differential counts (%) should be interpreted in the context of the absolute cell counts (cells/uL).Performed By: #### 23835-6 #### TITUS Mercado ([id number]) [facility] ([facility]) [id number] [place] [address] 96789Yxadbximcpw/100 WBC (Bld)59.4 %Ruhclv37.0-80.0UnProMedica Defiance Regional HospitalComment on above:Performed By: #### 80572-4 #### TITUS Mercado ([id number]) [facility] ([facility]) [address] [place], [place] [address]Jrltoykka RBC/100 WBC (Bld) [Ratio]0.0 /100 WBCsNormal0.0-0.0 [facility] HospitalComment on above:Performed By: #### 42506-1 #### TITUS Mercado ([id number]) [facility] ([facility]) [address] [place], [place] [address]Dgfxbyxev (Bld) [#/Vol]271 x10*3/gVLaasaa428-330MimcdhikzsProMedica Defiance Regional HospitalComment on above:Performed By: #### 60186-9 #### TITUS Mercado ([id number]) [facility] ([facility]) [address] [place], [place] [address]AJE (Bld) [#/Vol]4.19 x10*6/uLLow4.50-5.90[facility] [place] [facility] HospitalComment on above:Performed By: #### 38724-7 #### TITUS Mercado ([id number]) [facility] ([facility]) [address] [place], [place] [address]VHL (Bld) [#/Vol]5.3 x10*3/uLNormal4.4-11.3[facility] [place] [facility] HospitalComment on above:Performed By: #### 08001-6 #### TITUS Mercado ([id number]) [facility] ([facility]) [address] [place], [place] [address]RLC 12-LEADon 96-69-9108AEA 12-LEADVentricular Rate 63 Atrial Rate 63 P-R Interval 268 QRS Duration 74 Q-T Interval 406 QTC Calculation(Bazett) 415 [address] [place] 58 R [place] -3 T [place] 18 QRS Count 10 Q Onset 224 P Onset 90 P Offset 149 T Offset 427 QTC Fredericia 412 Diagnosis Sinus rhythm with 1st degree AV block Otherwise normal ECG When compared with ECG of 30-JAN-2019 19:26, heart rate decreased Confirmed by Tobi Rico ([id number]) on 02/12/2024 12:20:00 PMNBemidji Medical CenterNICOTINE AND METABOLITES,Son 93-63-2337Yzhobpeg [Mass/Vol]152 ng/mLNSelect Medical Cleveland Clinic Rehabilitation Hospital, BeachwoodComment on above: Performed By: #### NI+ME #### [facility] ([place]) ([id number]) [address] [place], [place] [address]Xertjzqd [Mass/Vol]6 ng/mLNSelect Medical Cleveland Clinic Rehabilitation Hospital, BeachwoodComment on above:Result Comment: INTERPRETIVE INFORMATION: Nicotine and Metabolites, Serum or Plasma, [...] developed and its performance characteristics determined by [facility]. It has not been cleared or approved by the US Food and Drug Administration. This test was performed in a CLIA certified laboratory and is intended for clinical purposes. Performed By: [facility] [address] [place] [address] Opt[employer] Mechanical Technician: Benjamin Bullock MD, PhD CLIA Number: [id number] By: #### NI+ME #### [facility] ([place]) ([id number]) [address] [place] [address] 85270AN and aPTT panel Coag (PPP)on 18-59-1479lRYC Coag (PPP) [Time]33 rGsqkmr22-48BhopnjikhlProMedica Defiance Regional HospitalComment on above:Order Comment: The APTT is no longer used for monitoring Unfractionated Heparin Therapy. For monitoring Heparin Therapy, use the Heparin Assay.Performed By: #### 72135-8 #### TITUS Mercado ([id number]) [facility] ([facility]) [address] [place] [address] 51412ZNG Coag (PPP) [Relative time]1.0Yzjauu1.9-1.1UnProMedica Defiance Regional HospitalComment on above:Order Comment: The APTT is no longer used for monitoring Unfractionated Heparin Therapy. For monitoring Heparin Therapy, use the Heparin Assay.Performed By: #### 57695-0 #### TITUS Mercado ([id number]) [facility] ([facility]) [address] [place] [address] 97194RD Coag (PPP) [Time]11.5 sNormal9.8-12.8[facility] [place] [facility] HospitalComment on above:Order Comment: The APTT is no longer used for monitoring Unfractionated Heparin Therapy. For monitoring Heparin Therapy, use the Heparin Assay.Performed By: #### 47606-6 #### TITUS Mercado ([id number]) [facility] ([facility]) [address] [place] [address] 35651Mwpxzvocyliupn aureus.methicillin resistant isolateon 88-81-9873JAYF isol Org specific cx Ql (Nose)Test: Staphylococcus aureus/MRSA colonization, Culture Specimen Source: Anterior Nares Specimen Type: Swab Specimen Date: 02/11/2024 150 Result Date: 02/13/2024825 Result Status: Final result Abnormal: No Resulting Lab: [facility] [address] [place] [address] CULTURE No Staphylococcus aureus isolatedNormalUniAvita Health System Bucyrus HospitalComment on above:Performed By: #### 97916-2 #### TITUS Mercado ([id number]) [facility] ([facility]) [address] [place] [address] 95286Ldzwjkwowu complete W Reflex Culture panel (U)on 02-11-2024 Appearance (U)ClearNormalClearEast [place] City Hospital Comment on above:Performed By: #### 30652-5 #### TITUS Mercado ([id number]) [facility] ([facility]) [address] [place] [address] 32363Eornkjlop (U) [Mass/Vol]NegativeNormalNEGATIVEEast Liverpool City HospitalComment on above:Performed By: #### 88011-9 #### TITUS Mercado ([id number]) [facility] ([facility]) [address] [place] [address] 29480Mxbkg (U)ColorlessNormalLight-Yellow, Yellow, Dark-Yellow [facility] [place] [facility] HospitalComment on above:Performed By: #### 95272-1 #### TITUS Mercado ([id number]) [facility] ([facility]) [address] [place] [address] 84615Dzqtgvu Auto test strip (U) [Mass/Vol]NormalNormalNormal [facility] [place] [facility] HospitalComment on above:Performed By: #### 29000-1 #### TITUS Mercado ([id number]) [facility] ([facility]) [address] [place] [address] 20123Qtbfvgo (U) [Mass/Vol]NegativeNormalNEGATIVEUnProMedica Defiance Regional HospitalComment on above:Performed By: #### 04302-5 #### TITUS Mercado ([id number]) [facility] ([facility]) [address] [place] [address] 29200Caaeyidjt esterase Auto test strip Ql (U)NegativeNormal NEGATIVEEast Liverpool City HospitalComment on above:Performed By: #### 06601-9 #### TITUS Mercado ([id number]) [facility] ([facility]) [address] [place] [address] 01899Gimjnre Auto test strip Ql (U)NegativeNormalNEGATIVE [facility] [place] [facility] HospitalComment on above:Performed By: #### 81567-6 #### TITUS Mercado ([id number]) [facility] ([facility]) [address] [place] [address] 70036hA (U)5.5 [pH]Normal5.0, 5.5, 6.0, 6.5, 7.0, 7.5, 8.0 [facility] [place] [facility] HospitalComment on above:Performed By: #### 98976-0 #### TITUS Mercado ([id number]) [facility] ([facility]) [address] [place] [address] 22580Dapvymu (U) [Mass/Vol]NegativeNormalNEGATIVE, 10 (TRACE), 20 (TRACE)[facility] [place] [facility] HospitalComment on above:Performed By: #### 91004-8 #### TITUS Mercado ([id number]) [facility] ([facility]) [address] [place] [address] 08101HDX (U) [#/Vol]NegativeNormalNEGATIVEEast Liverpool City HospitalComment on above:Performed By: #### 16342-0 #### TITUS Mercado ([id number]) [facility] ([facility]) [address] [place], [place] [address]Livsecmh gravity (U) [Rel density]1.559Izsicl8.005-1.035 [facility] [place] [facility] HospitalComment on above:Performed By: #### 31277-9 #### TITUS Mercado ([id number]) [facility] ([facility]) [address] [place] [address] 20815Ihpjogidyahi (U) [Mass/Vol]NormalNormalNormalUniversThe Christ HospitalComment on above:Performed By: #### 38431-2 #### TITUS Mercado ([id number]) [facility] ([facility]) [address] [place] [address] 97487HS BRAIN TUMOR PERFUSION PROTOCOL W AND WO IV CONTRASTon 17-70-0455FI BRAIN TUMOR PERFUSION PROTOCOL W AND WO IV CONTRASTInterpreted By: Nate Benavidez, STUDY: MR BRAIN TUMOR PERFUSION PROTOCOL W AND WO IV CONTRAST; 12/13/2023 8:49 am INDICATION: Signs/Symptoms:pontine lesion, imaging surveillance. COMPARISON: None. ACCESSION NUMBER(S): [id number] ORDERING CLINICIAN: SHIMON HEATON TECHNIQUE: Axial diffusion, [...] Nate Benavidez 12/13/2023 9:38 AM Dictation workstation: [id number]. Charles HospitalComment on above:Order Comment: FYI results cc'd to [facility] Brain for new diagnosis tumor WO and W contrast Tristin 40-72-1131Pypjz is again evidence of nonspecific nonenhancing ill-defined [...] Nate Benavidez 12/13/2023 9:38 AM Dictation workstation: [id number] By: Nate Benavidez, STUDY: MR BRAIN TUMOR PERFUSION PROTOCOL W AND WO IV CONTRAST; 12/13/2023 8:49 am INDICATION: Signs/Symptoms:pontine lesion, imaging surveillance. COMPARISON: None. ACCESSION NUMBER(S): [id number] ORDERING CLINICIAN: SHIMON HEATON TECHNIQUE: Axial diffusion, [...] The mastoid air cells are clear. [facility] MMODALNate Benavidez MD - 12/13/2023 Interpreted By: Nate Benavidez, STUDY: MR BRAIN TUMOR PERFUSION PROTOCOL W AND WO IV CONTRAST; 12/13/2023 8:49 am INDICATION: Signs/Symptoms:pontine lesion, imaging surveillance. COMPARISON: None. ACCESSION NUMBER(S): [id number] ORDERING CLINICIAN: SHIMON HEATON TECHNIQUE: Axial diffusion, [...] Nate Benavidez 12/13/2023 9:38 AM Dictation workstation: [id number] [facility] Work Phone: Radiology Study observation (narrative)[facility] Work Phone: Brain for new diagnosis tumor WO and W contrast IV Ordered By: Nate Benavidez on 45-80-9429FgoimioqeaOhioHealth Nelsonville Health Center Work Phone: Basophils Auto (Bld) [#/Vol]on 94-88-1746Ugpygcbpu (Bld) [#/Vol]0.04 10*3/uL<0.11[facility] OhioBasophils/100 WBC Auto (Bld)on 32-25-6291Bfqosqxay/100 WBC (Bld)0.5 %[facility] OhioBlood manual differential comment interpretation narrativeon 10-26-2023 Manual differential comment Curtis (Bld) [Interp]AutoKing'S Daughters Medical Center OhioCB W Auto Differential panel (Bld)on 00-86-9687Kgqptmghy (Bld) [#/Vol] 0.04 10*3/uLNINFArgos ClinicBasophils/100 WBC (Bld)0.5 %[facility] Differential cell count method Nom (Bld)AutoCleveland ClinicEosinophils (Bld) [#/Vol]0.13 10*3/uLNINFSelect Medical Cleveland Clinic Rehabilitation Hospital, Edwin ShawEosinophils/100 WBC (Bld)1.5 %[facility] Hospital, Edwin ShawErythrocyte distribution width (RBC) [Ratio]13.8 %11.5 - 15.0 %[facility] Hospital, Edwin ShawHematocrit (Bld) [Volume fraction]42.6 %39.0 - 51.0 %[facility] Hemoglobin (Bld) [Mass/Vol]14.4 g/dL13.0 - 17.0 g/dLSelect Medical Cleveland Clinic Rehabilitation Hospital, Edwin ShawImmature granulocytes (Bld) [#/Vol]0.03 10*3/uLNINFSelect Medical Cleveland Clinic Rehabilitation Hospital, Edwin ShawImmature granulocytes/100 WBC (Bld)0.3 %[facility] Hospital, Edwin ShawLymphocytes (Bld) [#/Vol]2.18 10*3/uLSelect Medical Cleveland Clinic Rehabilitation Hospital, Edwin ShawLymphocytes/100 WBC (Bld)24.8 %[facility] Valley HospitalH (RBC) [Entitic mass]32.0 pg26.0 - 34.0 pgCleveland Children's MinnesotaHC (RBC) [Mass/Vol]33.8 g/dL30.5 - 36.0 g/dLSelect Medical Cleveland Clinic Rehabilitation Hospital, Edwin ShawMCV (RBC) [Entitic vol]94.7 fL80.0 - 100.0 fLClevelcritical access hospital ClinicMonocytes (Bld) [#/Vol]0.60 10*3/NINFSelect Medical [facility] Monocytes/100 WBC (Bld)6.8 %[facility] Hospital, Edwin ShawNeutrophils (Bld) [#/Vol]5.80 10*3/uLSelect Medical Cleveland Clinic Rehabilitation Hospital, Edwin ShawNeutrophils/100 WBC (Bld)66.1 %[facility], Edwin ShawNucleated RBC (Bld) [#/Vol]NINFClevelKettering Health Greene MemorialNucleated RBC/100 WBC (Bld) [Ratio]0.0 % /100 WBCSelect Medical Cleveland Clinic Rehabilitation Hospital, Edwin ShawPlatelet mean volume (Bld) [Entitic vol]10.2 fL9.0 - 12.7 fLCtwin city hospital ClinicPlatelets (Bld) [#/Vol]314 10*3/uLSelect Medical Cleveland Clinic Rehabilitation Hospital, Edwin ShawRBC (Bld) [#/Vol]4.50 10*6/uL4.20 - 6.00 m/[facility] Hospital - AkronWBC (Bld) [#/Vol]8.78 10*3/uLSheltering Arms HospitalCT Chest W contrast Tristin 10-26-2023 IMPRESSION: 1. New streaky scarring/discoid atelectasis in [...] any questions regarding this interpretation, please call [phone]. If you are unable to reach us at the number above, please feel free to contact [facility] eRadiology at [phone].DIVISION OF RADIOLOGY* * *Final Report* * * DATE OF EXAM: Oct 26 2023 10:05AM [facility] 0539 - CT CHEST W [...] Localizer images: No additional findings. DIVISION OF RADIOLOGYProvider, [facility] [place] - 10/26/2023 * * *Final Report* * * DATE OF EXAM: Oct 26 2023 10:05AM [facility] 0539 - CT CHEST W [...] any questions regarding this interpretation, please call [phone]. If you are unable to reach us at the number above, please feel free to contact [facility] eRadiology at [phone]. [facility] Neck W contrast Tristin 73-93-9202ZQEQQSGOLY: Primary: 1: Expected post-treatment changes in the neck without evidence of recurrent disease in the primary site. Neck: 1: No evidence of abnormal lymph nodes. [email or web address] [email or web address] Transcribe Date/Time: Oct 26 2023 10:15A Dictated by: LIMA LIZ MD This examination was interpreted and the report reviewed and electronically signed by: LIMA LIZ MD on Oct 26 2023 10:35AM EST Thank you for allowing us to participate in the care of your patient. Should there be any questions regarding this interpretation, please call [phone]. 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 Resected T1 N1 base [...] normal. Parotid and submandibular spaces are normal. Maintenance Mechanic Telephone spaces appear normal. Infrahyoid Neck: Hypopharynx, larynx, [...] are clear of focal consolidation or mass. 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 Resected T1 N1 base [...] normal. Parotid and submandibular spaces are normal. Maintenance Mechanic Telephone spaces appear normal. Infrahyoid Neck: Hypopharynx, larynx, [...] are clear of focal consolidation or mass. Automotive Heavy Mechanic (topogram) images: Noncontributory IMPRESSION IMPRESSION: Primary: 1: Expected post-treatment changes in the neck without evidence of recurrent disease in the primary site. Neck: 1: No evidence of abnormal lymph nodes. [email or web address] [email or web address] Transcribe Date/Time: Oct 26 2023 10:15A Dictated by: LIMA LIZ MD This examination was interpreted and the report reviewed and electronically signed by: (more content not included)...[facility] ClinicCT Neck W contrast IVOrdered By: Ccf Provider on 53-15-2199Yhnvhtdpj [facility] And Granite ManorComprehensive metabolic 2000 panel Ordered By: Pauly Chan on 65-29-9848Higyjpp [Mass/Vol]4.3 g/dL3.9 - 4.9 g/dL Argos ClinicALP [Catalytic activity/Vol]75 U/L38 - 113 U/LCleveland Clinic ALT [Catalytic activity/Vol]10 U/L10 - 54 U/LCleveland ClinicAnion gap [Moles/Vol]8 mmol/LLow9 - 18 mmol/LCleveland ClinicAST [Catalytic activity/Vol]9 U/LLow14 - 40 U/LCleveland ClinicBilirubin [Mass/Vol]0.5 mg/dL0.2 - 1.3 mg/dL [facility], [facility] ShawCalcium [Mass/Vol]9.9 mg/dL8.5 - 10.2 mg/dLSelect Medical [facility] Chloride [Moles/Vol]106 mmol/LHigh97 - 105 mmol/LCleveland ClinicCO2 [Moles/Vol] 27 mmol/L22 - 30 mmol/LCleveland ClinicCreatinine [Mass/Vol]1.01 mg/dL0.73 - 1.22 mg/dLSelect Medical [facility] Clinic Rehabilitation Hospital, Edwin ShawGFR/1.73 sq M.predicted among non-blacks MDRD (S/P/Bld) [Vol rate/Area]85 mL/min/{1.73_m2}- PINFCleveland ClinicComment on above:Estimated Glomerular Filtration Rate (eGFR) is calculated using the 2020 CKD-EPI creatinine equation. This equation utilizes serum creatinine, sex, and age as parameters. The creatinine assay has traceable calibration to isotope dilution-mass spectrometry. Refer to KDIGO guidelines for clinical inte rpretation. In patients with unstable renal function, e.g. those with acute kidney injury, the eGFRmay not accurately reflect actual GFR.Glucose [Mass/Vol] 89 mg/dL74 - 99 mg/dLSelect Medical Cleveland Clinic Rehabilitation Hospital, Edwin ShawComment on above:The [place] Diabetes Association (ADA) provides guidance for cutoff [...] Standards of Medical Care in Diabetes 2016, [place] Diabetes Association. Diabetes Care. 2016.39(Suppl 1). Interpretation and review of laboratory resultsAbnormalCleveland ClinicPotassium [Moles/Vol]4.0 mmol/L3.7 - 5.1 mmol/LCleveland ClinicProtein [Mass/Vol]6.4 g/dL 6.3 - 8.0 g/dLClemarietta osteopathic clinic ClinicSodium [Moles/Vol]141 mmol/L136 - 144 mmol/L [facility], Edwin ShawUrea nitrogen [Mass/Vol]16 mg/dL9 - 24 mg/dLThe Jewish HospitalEosinophils/100 WBC Auto (Bld)on 97-45-9741Dmcccwrwjyi/100 WBC (Bld)1.5 %[facility] OhioErythrocyte distribution width Auto (RBC) [Ratio]on 95-19-4485Hzauxllfqru distribution width (RBC) [Ratio]13.8 % 11.5-15.0[facility] OhioHematocrit Auto (Bld) [Volume fraction]on 30-76-8102Yzznlrvpyt (Bld) [Volume fraction]42.6 %39.0-51.0[facility] OhioHemoglobin [Mass/volume] in Bloodon 38-49-9052Upqknyahpn (Bld) [Mass/Vol]14.4 g/dL13.0-17.0[facility] OhioLaboratory - Chemistry and Chemistry - challengeon 38-91-2930Rfevbtk [Mass/Vol]4.3 g/dL 3.9-4.9[facility] OhioALP [Catalytic activity/Vol]75 U/L38-113 [facility] OhioALT [Catalytic activity/Vol]10 U/L10-54 [facility] OhioAST [Catalytic activity/Vol]9 U/K75-05VwtrkgbheKing'S Daughters Medical Center OhioBilirubin [Mass/Vol]0.5 mg/dL0.2-1.3FMercy Health Defiance HospitalCalcium [Mass/Vol]9.9 mg/dL8.5-10.2FMercy Health Defiance HospitalChloride [Moles/Vol]106 mmol/H91-118VjijxcwrpKing'S Daughters Medical Center OhioCO2 [Moles/Vol]27 mmol/Z33-47SrdxubftkKing'S Daughters Medical Center OhioCreatinine [Mass/Vol] 1.01 mg/dL0.73-1.22[facility] OhioGlucose [Mass/Vol]89 mg/dL 74-99[facility] OhioComment on above:The [place] Diabetes Association (ADA) provides guidance for cutoff [...] hyperglycemia or hyperglycemic crisis, random plasma glucose resultsgreater than or equal to 200 mg/dL meet the criteria for diagnosis of diabetes.Reference: Standardsof Medical Care in Diabetes 2016, [place] Diabetes Association. Diabetes Care. 2016.39(Suppl 1). Potassium [Moles/Vol]4.0 mmol/L3.7-5.1FSelect Medical Cleveland Clinic Rehabilitation Hospital, Edwin Shawodium [Moles/Vol]141 mmol/V109-329OmbbumbmuKing'S Daughters Medical Center OhioUrea nitrogen [Mass/Vol]16 mg/dL9-24[facility] OhioLaboratory - Hematology and Cell countson 23-30-0336Volwfphpmpw (Bld) [#/Vol]0.13 10*3/uL<0.46[facility] OhioImmature granulocytes (Bld) [#/Vol]0.03 10*3/uL<0.10 [facility] OhioImmature granulocytes/100 WBC (Bld)0.3 % [facility] OhioLeukocytes [#/volume] corrected for nucleated erythrocytes in Blood by Automated counon 07-69-7131ZKI corrected for nucl RBC Auto (Bld) [#/Vol]8.78 k/uL3.70-11.00[facility] [place] Lymphocytes Auto (Bld) [#/Vol]on 75-66-1117Krqafyvnmlg (Bld) [#/Vol]2.18 10*3/uL 1.00-4.00[facility] OhioLymphocytes/100 WBC Auto (Bld)on 47-24-1473Tlvlgfecdxu/100 WBC (Bld)24.8 %[facility] CenterH Auto (RBC) [Entitic mass]on 05-37-2382WSU (RBC) [Entitic mass]32.0 pg26.0-34.0 [facility] OhioMCHC Auto (RBC) [Mass/Vol]on 05-56-4623LTTO (RBC) [Mass/Vol]33.8 g/dL30.5-36.0[facility] Medical CenterV Auto (RBC) [Entitic vol]on 74-49-9958LJP (RBC) [Entitic vol]94.7 fL80.0-100.0 [facility] OhioMonocytes Auto (Bld) [#/Vol]on 10-26-2023 Monocytes (Bld) [#/Vol]0.60 10*3/uL<0.87[facility] [place] Monocytes/100 WBC Auto (Bld)on 95-46-6576Jfvtfxmzh/100 WBC (Bld)6.8 %[facility] OhioNeutrophils Auto (Bld) [#/Vol]on 95-18-9151Dxyxizpbqke (Bld) [#/Vol]5.80 10*3/uL1.45-7.50[facility] [place] Neutrophils/100 WBC Auto (Bld)on 84-04-4762Xzlwzuwkdon/100 WBC (Bld)66.1 % [facility] OhioNo Panel Informationon 13-58-9284Xjtzviwfd Study observation (narrative)[facility], [facility] ShawEstimated GFR (CKD-EPI)85 mL/min/1.73m???>=60[facility] OhioComment on above:Estimated Glomerular Filtration Rate (eGFR) is calculated using the 2020 CKD-EPI creatinine equation. This equation utilizes serum creatinine, sex, and age as parameters. The creatinine assay has traceable calibration to isotope dilution- mass spectrometry. Refer to KDIGO guidelines for clinical interpretation. In patients with unstable renal function, e.g. those with acute kidney injury, the eGFRmay not accurately reflect actual GFR.Nucleated RBC Auto (Bld) [#/Vol]on 74-25-1335Lgurzehhq RBC (Bld) [#/Vol]10*3/uL<0.01[facility] OhioNucleated erythrocytes [Presence] in Blood by Automated counton 10-26-2023 Nucleated RBC Auto Ql (Bld)0.0 /100{WBC}[facility] Platelet mean volume Auto (Bld) [Entitic vol]on 64-73-9540Tljehbee mean volume (Bld) [Entitic vol]10.2 fL9.0-12.7FMercy Health Defiance HospitalPlatelets Auto (Bld) [#/Vol]on 24-27-4989Ttoruvftj (Bld) [#/Vol]314 10*3/cY609-304 [facility] OhioProtein [Mass/volume] in Serum or Plasmaon 35-52-3426Docqqnk [Mass/Vol]6.4 g/dL6.3-8.0[facility] OhioRBC Auto (Bld) [#/Vol]on 88-79-3078XVL (Bld) [#/Vol]4.50 10*6/uL4.20-6.00[facility] Health Centererum or plasma anion gap determinationon 07-05-6641Dmeor gap [Moles/Vol]8 mmol/L9-18FMercy Health Defiance HospitalAlanine aminotransferase [Enzymatic activity/volume] in Serum or PlasmaOrdered By: Griselda Hastings on 86-39-1349CSU [Catalytic activity/Vol]8 U/L7-52[facility] OhioAlbumin [Mass/volume] in Serum or Plasma by Bromocresol green (BCG) dye binding methoOrdered By: Griselda Hastings on 62-55-5297Lsoyfer BCG dye [Mass/Vol]3.9 g/dL3.5-5.7FMercy Health Defiance HospitalAlkaline phosphatase [Enzymatic activity/volume] in Serum or PlasmaOrdered By: Griselda Hastings on 42-79-4319OCW [Catalytic activity/Vol]59 U/H31-272UckrjtdktKing'S Daughters Medical Center OhioAspartate aminotransferase [Enzymatic activity/volume] in Serum or Plasma Ordered By: Griselda Hastings on 80-97-4191PXT [Catalytic activity/Vol]7 U/L13-39 [facility] [facility] OhioBasophils Auto (Bld) [#/Vol]Ordered By: Griselda Hastings on 17-72-1967Obmhkudfv (Bld) [#/Vol]0.1 10*3/uL0.0-0.2FMercy Health Defiance HospitalBasophils/100 WBC Auto (Bld)Ordered By: Griselda Hastings on 10-09-2023 Basophils/100 WBC (Bld)0.9 %.[facility] OhioBilirubin.total [Mass/volume] in Serum or PlasmaOrdered By: Griselda Hastings on 97-30-1060Mbcxxjseq [Mass/Vol]0.5 mg/dL0.3-1.0[facility] OhioCOVID-19 Detected/Not DetectedOrdered By: Griselda Hastings on 82-44-9275KMSV-CoV-2 (COVID-19) RNA JER+non- probe Ql (Nph)Not detectedNot DetectAvita Health System Bucyrus HospitalComment on above:This is a duplicate RP2.1 COVID (PCR) result to be used for statistical tracking purpose only.Calcium [Mass/volume] in Serum or PlasmaOrdered By: Griselda Hastings on 70-67-7166Qenitia [Mass/Vol]9.5 mg/dL8.6-10.3FMercy Health Defiance HospitalCarbon dioxide, total [Moles/volume] in Serum or PlasmaOrdered By: Griselda Hastings on 24-05-6226MR5 [Moles/Vol]30.0 mmol/L21.0-31.0[facility] OhioChloride [Moles/volume] in Serum or PlasmaOrdered By: Griselda Hastings on 97-91-2521Qsrgnmyv [Moles/Vol]103 mmol/Z93-051CleziqjawKing'S Daughters Medical Center [place] Creatinine [Mass/volume] in Serum or PlasmaOrdered By: Griselda Hastings on 10-09-2023 Creatinine [Mass/Vol]0.92 mg/dL0.70-1.30[facility] [place] Eosinophils Auto (Bld) [#/Vol]Ordered By: Griselda Hastings on 67-65-7387Vyjjslvfyrg (Bld) [#/Vol]0.1 10*3/uL0.0-0.45[facility] OhioEosinophils/100 WBC Auto (Bld)Ordered By: Griselda Hastings on 09-63-1367Omdqjhsvinf/100 WBC (Bld)1.0 %.[facility] OhioErythrocyte distribution width Auto (RBC) [Ratio]Ordered By: Griselda Hastings on 80-63-8637Xewbpfexupw distribution width (RBC) [Ratio]14.3 %12.0-14.8[facility] OhioGlobulin Calc (S) [Mass/Vol]Ordered By: Griselda Hastings on 37-18-6306Igbvmzza (S) [Mass/Vol]2.0 g/dL [facility] OhioGlucose [Mass/volume] in Serum or PlasmaOrdered By: Griselda Hastings on 60-79-5962Kpnmtjw [Mass/Vol]84 mg/uU39-962GcjprkmpcKing'S Daughters Medical Center OhioComment on above:ADA recommended reference rangeRandom Glucose Reference Range is dependent on time and content of last meal. Glucose of more than 200 mg/dL in a nonstressed, ambulatory subject supports the diagnosisof Diabetes Mellitus.Hematocrit Auto (Bld) [Volume fraction]Ordered By: Griselda Hastings on 01-97-7325Njqxyrqtwf (Bld) [Volume fraction]41.9 %38.8-50.0[facility] OhioHemoglobin [Mass/volume] in BloodOrdered By: Griselda Hastings on 19-49-9220Liklgnozao (Bld) [Mass/Vol]14.4 g/dL13.0-17.0[facility] OhioLeukocytes [#/volume] corrected for nucleated erythrocytes in Blood by Automated counOrdered By: Griselda Hastings on 83-30-6440LZH corrected for nucl RBC Auto (Bld) [#/Vol]8.1 10*3/uL4.1-10.5FMercy Health Defiance Hospital Lymphocytes Auto (Bld) [#/Vol]Ordered By: Griselda Hastings on 80-01-1870Tekrwzzyvvf (Bld) [#/Vol]2.7 10*3/uL1.00-4.8[facility] OhioLymphocytes/100 WBC Auto (Bld)Ordered By: Griselda Hastings on 93-05-5956Qqubrcbiyff/100 WBC (Bld)33.6 %.[facility] CenterH Auto (RBC) [Entitic mass]Ordered By: Griselda Hastings on 07-20-0972GHE (RBC) [Entitic mass]32.7 pg27.5-35.2FMercy Health Defiance HospitalMCHC Auto (RBC) [Mass/Vol]Ordered By: Griselda Hastings on 40-01-2062PMRW (RBC) [Mass/Vol]34.4 g/dL32.5-35.6FMercy Health Defiance HospitalMCV Auto (RBC) [Entitic vol]Ordered By: Griselda Hastings on 59-65-9590GOA (RBC) [Entitic vol]94.8 fL83.5-101[facility] OhioMonocytes Auto (Bld) [#/Vol]Ordered By: Griselda Hastings on 55-48-1763Mqixivwez (Bld) [#/Vol]0.6 10*3/uL0.0-0.8[facility] OhioMonocytes/100 WBC Auto (Bld) Ordered By: Griselda Hastings on 82-84-0428Ppsaazpgz/100 WBC (Bld)7.5 %.[facility] OhioNeutrophils Auto (Bld) [#/Vol]Ordered By: Griselda Hastings on 34-59-9811Nxvxnmblovi (Bld) [#/Vol]4.6 10*3/uL1.8-7.7FMercy Health Defiance HospitalNeutrophils/100 WBC Auto (Bld)Ordered By: Griselda Hastings on 10-09-2023 Neutrophils/100 WBC (Bld)57.0 %.[facility] OhioNo Panel InformationOrdered By: Griselda Hastings on 64-37-4408Qscnknrdg GFR (CKD-EPI)> 60.0 mL/MinKing'S Daughters Medical Center OhioPharmacy Creatinine Clearance (ChemN/A [facility] OhioNucleated erythrocytes [Presence] in Blood by Automated countOrdered By: Griselda Hastings on 53-76-0182Ukytvwvii RBC Auto Ql (Bld) 0.2 /100{WBC}0-0.5FMercy Health Defiance HospitalPlatelet mean volume Auto (Bld) [Entitic vol]Ordered By: Griselda Hastings on 50-31-8925Bmzykxqf mean volume (Bld) [Entitic vol]8.3 fL6.6-10.1FMercy Health Defiance HospitalPlatelets Auto (Bld) [#/Vol]Ordered By: Griselda Hastings on 99-93-1640Jerojsitn (Bld) [#/Vol]349 10*3/vB994-134YyumgaxaqKing'S Daughters Medical Center OhioPotassium [Moles/volume] in Serum or PlasmaOrdered By: Griselda Hastings on 49-99-1500Syholbowh [Moles/Vol]4.5 mmol/L 3.5-5.1FMercy Health Defiance HospitalProtein [Mass/volume] in Serum or Plasma Ordered By: Griselda Hastings on 29-47-3178Clwgkhb [Mass/Vol]5.9 g/dL6.4-8.9[facility] OhioRBC Auto (Bld) [#/Vol]Ordered By: Griselda Hastings on 49-94-1130JSI (Bld) [#/Vol]4.42 10*6/uL3.90-5.60[facility] OhioRespiratory pathogens DNA and RNA panel - Nasopharynx by JER with non- probe detectionOrdered By: Griselda Hastings on 27-83-4627Fqpivevzqiz pathogens DNA and RNA panel JER+non-probe (Nph)[facility] Centererum or plasma albumin/globulin mass ratioOrdered By: Griselda Hastings on 64-51-0168Rchypqc/Globulin [Mass ratio]2.0 {ratio}[facility] Centererum or plasma anion gap determinationOrdered By: Griselda Hastings on 37-69-6197Jyyuu gap [Moles/Vol]9.5 mmol/L6.0-15.0[facility] Centerodium [Moles/volume] in Serum or PlasmaOrdered By: Griselda Hastings on 79-64-8203Wjygau [Moles/Vol]138 mmol/B236-413 [facility] OhioUrea nitrogen [Mass/volume] in Serum or Plasma Ordered By: Griselda Hastings on 74-60-5797Iopo nitrogen [Mass/Vol]14 mg/dL7-25 [facility] OhioWBC Auto (Bld) [#/Vol]Ordered By: rGiselda Hastings on 09-05-7309CYI (Bld) [#/Vol]8.1 10*3/uL4.1-10.5FMercy Health Defiance Hospital Study Interpretation of outside studyon 84-33-7087Ysadxfd images for comparison or treatment purposes, not interpreted by Radiologists.IMAGINGMRI BRAIN W WO CONTRASTon 04-48-7695PJU BRAIN W WO CONTRAST EXAMINATION: MRI OF [...] Signed by: Vitor Hickman MD 08/01/23 Final resultNoProwers Medical CenterMRI CERVICAL SPINE WO CONTRASTon 87-45-0896TII CERVICAL SPINE WO CONTRASTEXAMINATION: MRI OF THE CERVICAL SPINE WITHOUT CONTRAST [...] by: Vitor Hickman MD Signed by: Vitor Hickamn MD 08/01/23 Final resultNormalParkview Medical CenterCOVID + FLU Quick Testingon 34-48-5093IZLO-CoV-2 (COVID-19) RNA JER+probe Ql (Unsp spec)NegativeParko Other COVID + FLU Quick TestingNegativeParko Other Quick Strepon 07-02-2023S. pyogenes Org specific cx Ql (Throat)NegativeParko Other Quick StrepParko Other RSVon 62-96-0022DEY Ag IA Ql (Unsp spec)NegativeParko Other Creatinine [Mass/volume] in Serum or PlasmaOrdered By: Ruddy Harvey on 25-32-2859Myaryuulxf [Mass/Vol]0.91 mg/dL0.70-1.30 [facility] OhioNo Panel InformationOrdered By: Ruddy Harvey on 81-91-2274Tllsowgjx GFR (CKD-EPI)> 60.0 mL/MinKing'S Daughters Medical Center OhioPharmacy Creatinine Clearance (Chem83.52[facility] OhioUrea nitrogen [Mass/volume] in Serum or PlasmaOrdered By: Ruddy Harvey on 58-76-5524Mjul nitrogen [Mass/Vol]15 mg/dL7-25[facility] OhioCreatinine (Bld) [Mass/Vol]Ordered By: Nikole Mota on 34-64-9380Ekqlkztdha [Mass/Vol]0.9 mg/dL0.6-1.3FMercy Health Defiance Hospital Comment on above:ER/ESD physician is notified/shown all ISTAT results.Critical values may be confirmed by laboratorytesting ifdeemed necessary by ER attending doctor.No Panel InformationOrdered By: Nikole Mota on 32-65-9390Okpoyxu Estimated GFR (eGFR)> 60.0[facility] OhioAlanine aminotransferase [Enzymatic activity/volume] in Serum or PlasmaOrdered By: Griselda Hastings on 73-13-4028OAC [Catalytic activity/Vol]10 U/L7-52[facility] OhioAlbumin [Mass/volume] in Serum or Plasma by Bromocresol green (BCG) dye binding methoOrdered By: Griselda Hastings on 04-07-2696Bpxmmhu BCG dye [Mass/Vol]4.2 g/dL3.5-5.7FMercy Health Defiance HospitalAlkaline phosphatase [Enzymatic activity/volume] in Serum or PlasmaOrdered By: Griselda Hastings on 84-42-3801OWW [Catalytic activity/Vol]61 U/I44-330ErtqwtjcjKing'S Daughters Medical Center OhioAspartate aminotransferase [Enzymatic activity/volume] in Serum or Plasma Ordered By: Griselda Hastings on 99-28-5343JDV [Catalytic activity/Vol]8 U/L13-39 [facility] OhioBasophils Auto (Bld) [#/Vol]Ordered By: Griselda Hastings on 22-25-0790Lizbjvdha (Bld) [#/Vol]0.1 10*3/uL0.0-0.2FMercy Health Defiance HospitalBasophils/100 WBC Auto (Bld)Ordered By: Griselda Hastings on 03-30-2023 Basophils/100 WBC (Bld)0.8 %.[facility] OhioBilirubin.total [Mass/volume] in Serum or PlasmaOrdered By: Griselda Hastings on 57-96-6830Cfdypqmcs [Mass/Vol]0.9 mg/dL0.3-1.0[facility] OhioCalcium [Mass/volume] in Serum or PlasmaOrdered By: Griselda Hastings on 57-54-2026Ibockqn [Mass/Vol]9.1 mg/dL8.6-10.3FMercy Health Defiance HospitalCarbon dioxide, total [Moles/volume] in Serum or PlasmaOrdered By: Griselda Hastings on 68-94-6173AM8 [Moles/Vol]27.0 mmol/L21.0-31.0[facility] OhioChloride [Moles/volume] in Serum or PlasmaOrdered By: Griselda Hastings 99-08-5527Jtuiutli [Moles/Vol]103 mmol/P60-351IpgtmnllqKing'S Daughters Medical Center OhioCholesterol [Mass/volume] in Serum or PlasmaOrdered By: Griselda Hastings on 81-15-7678Zjghtvtlfkw [Mass/Vol]224 mg/aM809-082GrpgwlqksKing'S Daughters Medical Center OhioComment on above:Chol less than 200 mg/dl low riskChol 201-239 mg/dl borderline riskChol 240 mg/dl and greater high riskCholesterol in LDL Calc [Mass/Vol]Ordered By: Griselda Hastings 89-42-1881Zgesbrpdlhs in LDL [Mass/Vol]148 mg/dL0-100[facility] OhioComment on above:LDL ATP III CLASSIFICATIONLDL less than 100 mg/dL OptimalLDL 100-129 mg/dL Near or above bcdoxjaXGA475-021 mg/dL Borderline highLDL 160-189 mg/dL HighLDL greater than 189 mg/dL Very highCholesterol in VLDL Calc [Mass/Vol]Ordered By: Griselda Hastings 56-92-0113Uxokfxbrwic in VLDL [Mass/Vol]31 mg/dLKing'S Daughters Medical Center OhioCreatinine [Mass/volume] in Serum or PlasmaOrdered By: Griselda Hastings 02-75-0516Zfccztaktu [Mass/Vol]0.82 mg/dL0.70-1.30[facility] OhioEosinophils Auto (Bld) [#/Vol] Ordered By: Griselda Hastings 32-19-8192Lyfjgvmbzbr (Bld) [#/Vol]0.1 10*3/uL0.0-0.45 [facility] OhioEosinophils/100 WBC Auto (Bld)Ordered By: Griselda Hastings on 71-26-2356Xsfdrakdbkv/100 WBC (Bld)0.6 %.[facility] OhioErythrocyte distribution width Auto (RBC) [Ratio]Ordered By: Griselda Hastings on 95-79-6885Ngxnjzjpuce distribution width (RBC) [Ratio]14.1 %12.0-14.8[facility] OhioGlobulin Calc (S) [Mass/Vol]Ordered By: Griselda Hastings on 80-89-7452Wjeqwcnp (S) [Mass/Vol]1.9 g/dLKing'S Daughters Medical Center [place] Glucose [Mass/volume] in Serum or PlasmaOrdered By: Griselda Hastings on 03-30-2023 Glucose [Mass/Vol]83 mg/nP05-532HuyclcptzKing'S Daughters Medical Center OhioComment on above:ADA recommended reference rangeRandom Glucose Reference Range is dependent on time and content of last meal. Glucose of more than 200 mg/dL in a nonstressed, ambulatory subject supports the diagnosisof Diabetes Mellitus. Hematocrit Auto (Bld) [Volume fraction]Ordered By: Griselda Hatsings on 03-30-2023 Hematocrit (Bld) [Volume fraction]41.4 %38.8-50.0[facility] OhioHemoglobin [Mass/volume] in BloodOrdered By: Griselda Hastings on 03-30-2023 Hemoglobin (Bld) [Mass/Vol]14.4 g/dL13.0-17.0[facility] [place] Leukocytes [#/volume] corrected for nucleated erythrocytes in Blood by Automated counOrdered By: Griselda Hastings on 85-17-7089CZG corrected for nucl RBC Auto (Bld) [#/Vol]10.0 10*3/uL4.1-10.5FMercy Health Defiance HospitalLymphocytes Auto (Bld) [#/Vol]Ordered By: Griselda Hastings on 73-75-0693Hmemmluunfi (Bld) [#/Vol]1.7 10*3/uL1.00-4.8[facility] OhioLymphocytes/100 WBC Auto (Bld) Ordered By: Griselda Hastings on 50-98-9682Ewwcgjfwufc/100 WBC (Bld)16.8 %.[facility] OhioMCH Auto (RBC) [Entitic mass]Ordered By: Griselda Hastings on 26-79-2902BLE (RBC) [Entitic mass]33.9 pg27.5-35.2FMercy Health Defiance HospitalMCHC Auto (RBC) [Mass/Vol]Ordered By: Griselda Hastings on 06-87-4176JGPP (RBC) [Mass/Vol]34.9 g/dL32.5-35.6FMercy Health Defiance HospitalMCV Auto (RBC) [Entitic vol]Ordered By: Griselda Hastings on 08-55-0736AUR (RBC) [Entitic vol]97.1 fL 83.5-101[facility] OhioMonocytes Auto (Bld) [#/Vol]Ordered By: Griselda Hastings on 30-64-2210Gxyborovy (Bld) [#/Vol]0.8 10*3/uL0.0-0.8[facility] OhioMonocytes/100 WBC Auto (Bld)Ordered By: Griselda Hastings on 42-51-6438Zzmxjoiyn/100 WBC (Bld)8.0 %.[facility] [place] Neutrophils Auto (Bld) [#/Vol]Ordered By: Griselda Hastings on 78-68-3175Fsqakjacxel (Bld) [#/Vol]7.3 10*3/uL1.8-7.7FMercy Health Defiance HospitalNeutrophils/100 WBC Auto (Bld)Ordered By: Griselda Hastings on 05-50-7897Agidjzhhykk/100 WBC (Bld)73.8 %.[facility] OhioNo Panel InformationOrdered By: Griselda Hastings on 59-34-4172Mibgjbbej GFR (CKD-EPI)> 60.0 mL/MinKing'S Daughters Medical Center [place] Pharmacy Creatinine Clearance (ChemN/[facility] HospitalNucleated erythrocytes [Presence] in Blood by Automated countOrdered By: Griselda Hastings on 53-08-6865Cajnxaraq RBC Auto Ql (Bld)0.1 /100{WBC}0-0.5FMercy Health Defiance HospitalPlatelet mean volume Auto (Bld) [Entitic vol]Ordered By: Griselda Hastings on 31-60-0220Jtxvfawv mean volume (Bld) [Entitic vol]9.2 fL6.6-10.1 [facility] OhioPlatelets Auto (Bld) [#/Vol]Ordered By: Griselda Hastings on 36-72-0843Yxtkhafzs (Bld) [#/Vol]221 10*3/fG190-875OmcnxpupbKing'S Daughters Medical Center OhioPotassium [Moles/volume] in Serum or PlasmaOrdered By: Griselda Hastings on 26-62-2874Skkwijibw [Moles/Vol]4.1 mmol/L3.5-5.1FMercy Health Defiance HospitalProtein [Mass/volume] in Serum or PlasmaOrdered By: Griselda Hastings on 80-39-7438Krtovqc [Mass/Vol]6.1 g/dL6.4-8.9[facility] OhioRBC Auto (Bld) [#/Vol]Ordered By: Griselda Hastings on 58-30-7250WYQ (Bld) [#/Vol]4.26 10*6/uL3.90-5.60[facility] Centererum or plasma albumin/globulin mass ratioOrdered By: Griselda Hastings on 64-01-0306Vybgmvf/Globulin [Mass ratio]2.2 {ratio}[facility] Centererum or plasma anion gap determinationOrdered By: Griselda Hastings on 02-09-8341Mmnpm gap [Moles/Vol]12.1 mmol/L6.0-15.0[facility] Centererum or plasma high density lipoprotein (HDL) cholesterol measurementOrdered By: Griselda Hastings on 03-30-2023 Cholesterol in HDL [Mass/Vol]44 mg/uY97-38TvjzhwuwrKing'S Daughters [facility] [place] Comment on above:HDL CHOL ATP-III CLASSIFICATION Cardiovascular RiskHDL > or equal to 60 mg/dL LOWHDL < 40 mg/dL HIGHSerum or plasma total cholesterol/high density lipoprotein (HDL) cholesterol mass ratOrdered By: Griselda Hastings on 77-20-0864Mreflrnwuxu.total/Cholesterol in HDL [Mass ratio]5.1 {ratio}<5.0 [facility] Centerodium [Moles/volume] in Serum or PlasmaOrdered By: Griselda Hastings on 45-45-1461Zppjzi [Moles/Vol]138 mmol/M228-307SwzcljsitKing'S Daughters Medical Center OhioThyrotropin [Units/volume] in Serum or PlasmaOrdered By: Griselda Hastings on 96-08-0184IOO Qn0.93 m[IU]/L0.45-5.33[facility] OhioTriglyceride [Mass/volume] in Serum or PlasmaOrdered By: Griselda Hastings on 46-15-3083Xcaqgpmjbvwc [Mass/Vol]159 mg/dL0-149[facility] [place] Comment on above:TRIG ATP III CLASSIFICATIONTRIG less than 150 mg/dL NormalTRIG 150-199 mg/dL Borderline highTRIG 200-500 mg/dL High TRIG greater than 500 mg/dL Very highStandard traceable to the Center for Disease Conrtrol and Prevention (CDC) test method.Urea nitrogen [Mass/volume] in Serum or PlasmaOrdered By: Griselda Hastings on 88-26-6932Zvlw nitrogen [Mass/Vol]10 mg/dL7-25[facility] OhioWBC Auto (Bld) [#/Vol]Ordered By: Griselda Hastings on 62-78-6218YNP (Bld) [#/Vol]10.0 10*3/uL4.1-10.5FMercy Health Defiance HospitalCOVID-19 YENNY Ordered By: Daniel Gaytan on 54-87-9901NQOJ-CoV+SARS-CoV-2 (COVID-19) Ag IA.rapid Ql (Resp)NegativeNegativeKing'S Daughters Medical Center OhioComment on above:This is a duplicate Yenny SARS Antigen (JAMILA) result to be used for statistical tracking purpose only.No Panel InformationOrdered By: Daniel Gaytan on 70-02-9472VFFT Antigen (LFIA)[facility] Health CenterARS Antigen (LFIA)[facility] OhioNo Panel Informationon 57-00-1316QZ Pain Management Case (Reference Range: not available) *FINAL Date of Service: 12/28/2022 08:49 Adm #: [id number] Reading Dr:RICARDO CAPPS Signoff Dr: RICRADO CAPPS PROCEDURE: PAIN MANAGEMENT CASE - BXR 0999 REASON FOR EXAM: SPONDYLOSIS W/O MYELOPATHY OR RADICULOPATHY, CERVICAL REGION RESULT: Patient Name: SHANTEL MELENDEZ STUDY: PAIN MANAGEMENT CASE INDICATION: SPONDYLOSIS W/O MYELOPATHY OR RADICULOPATHY, CERVICAL REGION COMPARISON: None. ACCESSION NUMBER(S): [id number] ORDERING CLINICIAN: LIMA JOSEPH TECHNIQUE: See below: FINDINGS: Fluoroscopy was provided during therapeutic puncture in the region of the cervical spine for pain management. Total fluoroscopy time: 14.56mgy, images: 4. IMPRESSION: Fluoroscopy for pain management. Dictation workstation: [id number] Original Interpreting Physician: RICARDO CAPPS M.D. Original Transcribed by/Date: MMODAL Dec 28 2022 6:14A Original Electronically Signed by/Date: RICARDO CAPPS M.D. Dec 28 2022 9:04A Addendum Interpreting Physician: Addendum Transcribed by/Date: NO ADDENDUM Addendum Electronically Signed by/Date: [facility] EnterpriseQHello Agentck Strepon 12-05-2022S. pyogenes Org specific cx Ql (Throat) NegativePlayScape Other Quick StrepPlayScape Other CT Chest W contrast Tristin [id number]: Stable CT of the chest. Unchanged appearance [...] any questions regarding this interpretation, please call [phone]. If you are unable to reach us at the number above, please feel free to contact [facility] at [phone].DIVISION OF RADIOLOGY* * *Final Report* * * DATE OF EXAM: Oct 27 2022 11:44AM [facility] 0539 - CT CHEST W [...] No abnormality in the imaged upper abdomen. Automotive Heavy Mechanic (topogram) images: No additional findings. DIVISION OF RADIOLOGYProvider, [facility] [place] - 10/30/2022 * * *Final Report* * * DATE OF EXAM: Oct 27 2022 11:44AM [facility] 0539 - CT CHEST W [...] No abnormality in the imaged upper abdomen. Automotive Heavy Mechanic (topogram) images: No additional findings. IMPRESSION IMPRESSION: [...] any questions regarding this interpretation, please call [phone]. If you are unable to reach us at the number above, please feel free to contact [facility] eRadiology at [phone]. [facility] W Auto Differential panel (Bld)on 10-27-2022 Basophils (Bld) [#/Vol]0.03 10*3/uLNINFSelect Medical [facility], [facility] ShawBasophils/100 WBC (Bld) 0.3 %[facility] ShawDifferential cell count method Nom (Bld)AutoCleveland ClinicEosinophils (Bld) [#/Vol]0.06 10*3/uLNINFSelect Medical [facility], [facility] ShawEosinophils/100 WBC (Bld)0.7 %[facility] ShawErythrocyte distribution width (RBC) [Ratio]14.0 % 11.5 - 15.0 %[facility], [facility] ShawHematocrit (Bld) [Volume fraction]43.5 %39.0 - 51.0 %[facility] ShawHemoglobin (Bld) [Mass/Vol]14.5 g/dL13.0 - 17.0 g/dLSelect Medical [facility] Clinic Rehabilitation Hospital, Edwin ShawImmature granulocytes (Bld) [#/Vol]0.03 10*3/uLNINFSelect Medical [facility] Immature granulocytes/100 WBC (Bld)0.3 %[facility] ShawLymphocytes (Bld) [#/Vol]2.00 10*3/uLSelect Medical [facility] Clinic Rehabilitation Hospital, Edwin ShawLymphocytes/100 WBC (Bld)21.9 %[facility] HospitalH (RBC) [Entitic mass]31.3 pg26.0 - 34.0 pgCMercy Health Defiance HospitalHC (RBC) [Mass/Vol]33.3 g/dL30.5 - 36.0 g/dLOhio Valley HospitalV (RBC) [Entitic vol]93.8 fL80.0 - 100.0 fLClevelcritical access hospital ClinicMonocytes (Bld) [#/Vol]0.53 10*3/uLNINF [facility] ShawMonocytes/100 WBC (Bld)5.8 %[facility] ShawNeutrophils (Bld) [#/Vol]6.47 10*3/uLSelect Medical [facility] Clinic Rehabilitation Hospital, Edwin ShawNeutrophils/100 WBC (Bld)71.0 %[facility] ShawNucleated RBC (Bld) [#/Vol]NINFCleveland ClinicNucleated RBC/100 WBC (Bld) [Ratio]0.0 %/100 WBCSelect Medical Cleveland Clinic Rehabilitation Hospital, Edwin ShawPlatelet mean volume (Bld) [Entitic vol] 10.8 fL9.0 - 12.7 fLCtwin city hospital ClinicPlatelets (Bld) [#/Vol]253 10*3/uLArgos ClinicRBC (Bld) [#/Vol]4.64 10*6/uL4.20 - 6.00 m/uLSelect Medical Cleveland Clinic Rehabilitation Hospital, Edwin ShawWBC (Bld) [#/Vol]9.12 10*3/[facility] HospitalCT Neck W contrast Tristin [id number]: Primary NIRADS Category: 1. Expected post-treatment changes in the neck without evidence of recurrent disease in the primary site. Neck NIRADS Category: 1. No evidence of abnormal lymph nodes. [email or web address] [email or web address] Transcribe Date/Time: Oct 27 2022 11:56A Dictated by: KALPANA HAMPTON MD This examination was interpreted and the report reviewed and electronically signed by: KALPANA HAMPTON MD on Oct 27 2022 12:14PM EST Thank you for allowing us to participate in the care of your patient. Should there be any questions regarding this interpretation, please call [phone]. 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 Parotid and submandibular spaces are normal. Maintenance Mechanic Telephone spaces appear normal. Infrahyoid Neck: Hypopharynx, larynx, [...] of focal consolidation or mass. 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 Parotid and submandibular spaces are normal. Maintenance Mechanic Telephone spaces appear normal. Infrahyoid Neck: Hypopharynx, larynx, [...] 1. No evidence of abnormal lymph nodes. [email or web address] Transcribe Date/Time: Oct 27 2022 11:56A Dictated by: KALPANA HAMPTON MD This examination was interpreted and the report reviewed and electronically signed by: KALPANA HAMPTON MD on Oct 27 2022 12:14PM EST Thank you for allowing us to participate in the care of your patient. Should there be any questions regarding this interpretation, please call [phone]. If you are unable to reach us at the number above, please feel free to contact [facility] eRadiology at [phone]. [facility] ShawCT Neck W contrast IVOrdered By: Ccf Provider on 10-27-2022 [facility] ShawComprehensive metabolic 2000 panelOrdered By: Kelly Goodson on 94-22-5753Etncoii [Mass/Vol]4.3 g/dL3.9 - 4.9 g/dLArgos ClinicALP [Catalytic activity/Vol]89 U/L38 - 113 U/LCleveland ClinicALT [Catalytic activity/Vol]7 U/LLow10 - 54 U/LCleveland ClinicAnion gap [Moles/Vol]10 mmol/L9 - 18 mmol/L [facility] ShawAST [Catalytic activity/Vol]8 U/LLow14 - 40 U/LCleveland Clinic Bilirubin [Mass/Vol]0.3 mg/dL0.2 - 1.3 mg/dLArgos ClinicCalcium [Mass/Vol] 9.6 mg/dL8.5 - 10.2 mg/dLArgos ClinicChloride [Moles/Vol]104 mmol/L97 - 105 mmol/LCleveland ClinicCO2 [Moles/Vol]27 mmol/L22 - 30 mmol/LCleveland Clinic Creatinine [Mass/Vol]0.93 mg/dL0.73 - 1.22 mg/dLSelect Medical [facility], Edwin ShawGFR/1.73 sq M.predicted among non-blacks MDRD (S/P/Bld) [Vol rate/Area]95 mL/min/{1.73_m2}- PINFCleveland ClinicComment on above:Estimated Glomerular Filtration Rate (eGFR) is calculated using the 2020 CKD-EPI creatinine equation. This equation utilizes serum creatinine, sex, and age as parameters. The creatinine assay has traceable calibration to isotope dilution-mass spectrometry. Refer to KDIGO guidelines for clinical interpretation. In patients with unstable renal function, e.g. those with acute kidney injury, the eGFRmay not accurately reflect actual GFR.Glucose [Mass/Vol]98 mg/dL74 - 99 mg/dLSelect Medical [facility] Clinic Rehabilitation Hospital, Edwin ShawComment on above:The [place] Diabetes Association (ADA) provides guidance for cutoff [...] Standards of Medical Care in Diabetes 2016, [place] Diabetes Association. Diabetes Care. 2016.39(Suppl 1). Interpretation and review of laboratory resultsAbnormalCleveland ClinicPotassium [Moles/Vol]4.5 mmol/L3.7 - 5.1 mmol/LCleveland ClinicProtein [Mass/Vol]6.6 g/dL 6.3 - 8.0 g/dLArgos ClinicSodium [Moles/Vol]141 mmol/L136 - 144 mmol/L [facility] ShawUrea nitrogen [Mass/Vol]12 mg/dL9 - 24 mg/dLThe Jewish HospitalNo Panel Informationon 33-01-2102Rgxkcuulg Study observation (narrative)[facility] aminotransferase [Enzymatic activity/volume] in Serum or PlasmaOrdered By: Griselda Hastings on 29-90-9249GXQ [Catalytic activity/Vol]7 U/L7-52[facility] OhioAlbumin [Mass/volume] in Serum or Plasma by Bromocresol green (BCG) dye binding methoOrdered By: Griselda Hastings on 07-44-4222Gctqwqr BCG dye [Mass/Vol]4.2 g/dL3.5-5.7FMercy Health Defiance HospitalAlkaline phosphatase [Enzymatic activity/volume] in Serum or PlasmaOrdered By: Griselda Hastings on 34-54-2740DMP [Catalytic activity/Vol]76 U/L 34-104King[facility] OhioAspartate aminotransferase [Enzymatic activity/volume] in Serum or PlasmaOrdered By: Griselda Hastings on 27-85-2653[place] [Catalytic activity/Vol]10 U/Z72-28NwpdlgwyiKing'S Daughters Medical Center OhioBasophils Auto (Bld) [#/Vol]Ordered By: Griselda Hastings on 28-56-6801Aagsbwjvv (Bld) [#/Vol]0.0 10*3/uL0.0-0.2FMercy Health Defiance HospitalBasophils/100 WBC Auto (Bld) Ordered By: Griselda Hastings on 23-09-3185Scqdkkown/100 WBC (Bld)0.9 %.[facility] OhioBilirubin.total [Mass/volume] in Serum or PlasmaOrdered By: Griselda Hastings on 10-23-8996Moaywuaij [Mass/Vol]0.4 mg/dL0.3-1.0[facility] OhioCalcium [Mass/volume] in Serum or PlasmaOrdered By: Griselda Hastings on 33-99-9820Wiojhmr [Mass/Vol]9.1 mg/dL8.6-10.3FMercy Health Defiance HospitalCarbon dioxide, total [Moles/volume] in Serum or PlasmaOrdered By: Griselda Hastings on 08-45-5765VX2 [Moles/Vol]28.3 mmol/L21.0-31.0[facility] OhioChloride [Moles/volume] in Serum or PlasmaOrdered By: Griselda Hastings on 94-75-4531Jhdrnujx [Moles/Vol]105 mmol/H43-162TshchnucwKing'S Daughters Medical Center Ohio Cholesterol [Mass/volume] in Serum or PlasmaOrdered By: Griselda Hastings on 10-24-2022 Cholesterol [Mass/Vol]240 mg/zQ706-229UipnthgliKing'S Daughters Medical Center OhioComment on above:Chol less than 200 mg/dl low riskChol 201-239 mg/dl borderline riskChol 240 mg/dl and greater high riskCholesterol in LDL Calc [Mass/Vol]Ordered By: Griselda Hastings on 29-34-6070Ysnzwljeyho in LDL [Mass/Vol]169 mg/dL0-100[facility] OhioComment on above:LDL ATP III CLASSIFICATIONLDL less than 100 mg/dL OptimalLDL 100-129 mg/dL Near or above mbaimmjIBQ832-516 mg/dL Borderline highLDL 160-189 mg/dL HighLDL greater than 189 mg/dL Very high Cholesterol in VLDL Calc [Mass/Vol]Ordered By: Griselda Hastings on 10-24-2022 Cholesterol in VLDL [Mass/Vol]35 mg/dLKing'S Daughters Medical Center Ohio Creatinine [Mass/volume] in Serum or PlasmaOrdered By: Griselda Hastings on 10-24-2022 Creatinine [Mass/Vol]0.88 mg/dL0.70-1.30[facility] [place] Eosinophils Auto (Bld) [#/Vol]Ordered By: Griselda Hastings on 27-52-3347Zmyluynrkou (Bld) [#/Vol]0.1 10*3/uL0.0-0.45[facility] OhioEosinophils/100 WBC Auto (Bld)Ordered By: Griselda Hastings on 42-95-4404Plckyouibcs/100 WBC (Bld)2.0 %.[facility] OhioErythrocyte distribution width Auto (RBC) [Ratio]Ordered By: Griselda Hastings on 25-81-5105Brmoupzensj distribution width (RBC) [Ratio]14.7 %12.0-14.8[facility] OhioGlobulin Calc (S) [Mass/Vol]Ordered By: Griselda Hastings on 32-94-8978Yeqtppnb (S) [Mass/Vol]2.1 g/dL [facility] OhioGlucose [Mass/volume] in Serum or PlasmaOrdered By: Griselda Hastings on 53-86-1541Dpsfejc [Mass/Vol]82 mg/xZ61-696WteusbvncKing'S Daughters Medical Center OhioComment on above:ADA recommended reference rangeRandom Glucose Reference Range is dependent on time and content of last meal. Glucose of more than 200 mg/dL in a nonstressed, ambulatory subject supports the diagnosisof Diabetes Mellitus.Hematocrit Auto (Bld) [Volume fraction]Ordered By: Griselda Hastings on 28-33-4446Hsfyqbqqpf (Bld) [Volume fraction]43.4 %38.8-50.0[facility] OhioHemoglobin [Mass/volume] in BloodOrdered By: Griselda Hastings on 78-27-6781Ivwzqcftlm (Bld) [Mass/Vol]14.5 g/dL13.0-17.0[facility] OhioLeukocytes [#/volume] corrected for nucleated erythrocytes in Blood by Automated counOrdered By: Griselda Hastings on 55-12-2170SKJ corrected for nucl RBC Auto (Bld) [#/Vol]5.0 10*3/uL4.1-10.5FMercy Health Defiance Hospital Lymphocytes Auto (Bld) [#/Vol]Ordered By: Grsielda Hastings on 13-40-8206Csmjjvfwlsr (Bld) [#/Vol]2.0 10*3/uL1.00-4.8[facility] OhioLymphocytes/100 WBC Auto (Bld)Ordered By: Griselda Hastings on 87-71-1160Guzzzvzxagl/100 WBC (Bld)39.8 %.[facility] CenterH Auto (RBC) [Entitic mass]Ordered By: Griselda Hastings on 43-40-5650TJR (RBC) [Entitic mass]31.5 pg27.5-35.2FUC Medical CenterHC Auto (RBC) [Mass/Vol]Ordered By: Griselda Hastings on 39-86-8113PHUX (RBC) [Mass/Vol]33.5 g/dL32.5-35.6FMercy Health Defiance HospitalMCV Auto (RBC) [Entitic vol]Ordered By: Griselda Hastings on 47-58-7811OLK (RBC) [Entitic vol]94.0 fL83.5-101[facility] OhioMonocytes Auto (Bld) [#/Vol]Ordered By: Griselda Hastings on 72-80-8191Jjeytipcj (Bld) [#/Vol]0.3 10*3/uL0.0-0.8[facility] OhioMonocytes/100 WBC Auto (Bld) Ordered By: Griselda Hastings on 58-22-1950Fwbxuorpz/100 WBC (Bld)5.4 %.[facility] OhioNeutrophils Auto (Bld) [#/Vol]Ordered By: Griselda Hastings on 65-80-7539Rxtujlakmyu (Bld) [#/Vol]2.6 10*3/uL1.8-7.7FMercy Health Defiance HospitalNeutrophils/100 WBC Auto (Bld)Ordered By: Griselda Hastings on 10-24-2022 Neutrophils/100 WBC (Bld)51.9 %.[facility] OhioNo Panel InformationOrdered By: Griselda Hastings on 75-53-2413Vvsbywwxi GFR (CKD-EPI)> 60.0 mL/MinKing'S Daughters Medical Center OhioPharmacy Creatinine Clearance (ChemN/A [facility] OhioNucleated erythrocytes [Presence] in Blood by Automated countOrdered By: Griselda Hastings on 44-02-7062Igkivukme RBC Auto Ql (Bld) 0.1 /100{WBC}0-0.5FMercy Health Defiance HospitalPlatelet mean volume Auto (Bld) [Entitic vol]Ordered By: Griselda Hastings on 32-16-8116Cvvjrlus mean volume (Bld) [Entitic vol]9.6 fL6.6-10.1FMercy Health Defiance HospitalPlatelets Auto (Bld) [#/Vol]Ordered By: Griselda Hastings on 13-58-4233Nqjzejlre (Bld) [#/Vol]247 10*3/oW646-551UrfgihtesKing'S Daughters Medical Center OhioPotassium [Moles/volume] in Serum or PlasmaOrdered By: Griselda Hastings on 87-74-8223Yermhtqxt [Moles/Vol]4.0 mmol/L 3.5-5.1FMercy Health Defiance HospitalProstate specific Ag [Mass/volume] in Serum or PlasmaOrdered By: Griselda Hastings on 10-16-9259Yrdosrgx specific Ag [Mass/Vol]0.370 ng/mL0.000-4.000[facility] OhioProtein [Mass/volume] in Serum or PlasmaOrdered By: Griselda Hastings on 56-39-1135Uojzrvb [Mass/Vol]6.3 g/dL6.4-8.9[facility] OhioRBC Auto (Bld) [#/Vol] Ordered By: Griselda Hastings on 67-43-3333SIV (Bld) [#/Vol]4.61 10*6/uL3.90-5.60 [facility] Health Centererum or plasma albumin/globulin mass ratio Ordered By: Griselda Hastings on 63-58-7773Brhjaty/Globulin [Mass ratio]2.0 {ratio} [facility] Centererum or plasma anion gap determinationOrdered By: Griselda Hastings on 90-33-5007Lneyb gap [Moles/Vol]11.7 mmol/L6.0-15.0[facility] Health Centererum or plasma high density lipoprotein (HDL) cholesterol measurementOrdered By: Griselda Hastings on 71-18-1475Bgjdbxjpqrd in HDL [Mass/Vol]36 mg/bT61-25OxumrkdygKing'S Daughters Medical Center OhioComment on above:HDL CHOL ATP-III CLASSIFICATION Cardiovascular RiskHDL > or equal to 60 mg/dL LOWHDL < 40 mg/dL HIGHSerum or plasma total cholesterol/high density lipoprotein (HDL) cholesterol mass ratOrdered By: Griselda Hastings on 10-24-2022 Cholesterol.total/Cholesterol in HDL [Mass ratio]6.7 {ratio}<5.0[facility] Health Centerodium [Moles/volume] in Serum or PlasmaOrdered By: Griselda Hastings on 42-10-5048Gkncjk [Moles/Vol]141 mmol/P115-859WsjrmlggwKing'S Daughters Medical Center OhioThyrotropin [Units/volume] in Serum or PlasmaOrdered By: Griselda Hastings on 05-75-5602XGK Qn1.26 m[IU]/L0.45-5.33[facility] Triglyceride [Mass/volume] in Serum or PlasmaOrdered By: Griselda Hastings on 97-18-8862Ynouejkgxkgm [Mass/Vol]175 mg/dL0-149[facility] [place] Comment on above:TRIG ATP III CLASSIFICATIONTRIG less than 150 mg/dL NormalTRIG 150-199 mg/dL Borderline highTRIG 200-500 mg/dL High TRIG greater than 500 mg/dL Very highStandard traceable to the Center for Disease Conrtrol and Prevention (CDC) test method.Urea nitrogen [Mass/volume] in Serum or PlasmaOrdered By: Griselda Hastings on 85-13-1462Yskw nitrogen [Mass/Vol]15 mg/dL7-25[facility] OhioWBC Auto (Bld) [#/Vol]Ordered By: Griselda Hastings on 37-86-5394FZX (Bld) [#/Vol]5.0 10*3/uL4.1-10.5FMercy Health Defiance HospitalBRIEF OP NOTon 81-19-8800SMTNF OP NOTHNO ID: [id number] Author: Flores Cat APRN.CNP Service: Interventional Radiology Author Type: Nurse Practitioner Type: Brief Op Note Filed: 09/28/2022 3:14 PM Note Text: BRIEF OPERATIVE / PROCEDURE NOTE LOG ID: [id number] SURGERY/PROCEDURE DATE: 09/28/2022 INCISION/PROCEDURE START TIME: 1:58 PM INCISION CLOSE/PROCEDURE END TIME: 2:27 PM SURGEON(S)/PROCEDURALIST(S) AND DEBURRER(S): Surgeon(s) and Role: * Flores Cat APRN.EYE DROPPER ASSEMBLER - Primary No Additional Staff SURGERY/PROCEDURE(S): LP [...] Melendez DATE: September 28, 2022 TIME: 3:10 [facility]on 86-68-7140BZ LUMBAR PUNCTURE DIAG* * *Final Report* * * DATE OF EXAM: Sep 28 2022 2:41PM [facility] 7594 - IR LUMBAR PUNCTURE DIAG / PROCEDURE REASON: NPH (normal pressure hydrocephalus) ([facility]) [G91.2] * * * * Physician Interpretation [...] guidance was performed in conjunction with the development technician. Plane A, Air Kerma: 20.0 mGy Dose Area Product (DAP): 71644.1 mGy*cm2 Fluoro time: 3:54 min: sec Post-Procedure: [...] procedure was performed by: Flores Cat APRN.CNP Textile Engraver: HARPER Transcribe Date/Time: Sep 28 2022 3:15P Dictated by : FLORES CAT CNP This examination was interpreted and the report reviewed and electronically signed by: FLORES CAT CNP on Sep 28 2022 3:22PM EST [id number] State School for the Feeble-Minded PROn 69-82-3505FSSKTSG PROGHNO ID: [id number] Author: Court Magana, RN Service: Nursing Author [...] Primary Care Provider Electronically Signed By: Court ChristensenWaltham Hospital BRAIN WO/W IVCONon 59-47-5695Vwwvkpool ClinicCOVID + FLU Quick Testingon 08-01-2022 SARS-CoV-2 (COVID-19) RNA JER+probe Ql (Unsp spec)NegativeFlowery Branch [facility] Other COVID + FLU Quick TestingneagatSoutheast Missouri Hospital [facility] Other COVID + FLU Quick TestingNegativeNohedrick medical center [facility] Other RSVon 61-35-3481ZRL Ag IA Ql (Unsp spec)PositiveNort [facility] Other Cerebrospinal fluid post-centrifugation appearance determinationOrdered By: Oziel Cadena on 56-58-3658Tcgjkcmvlh (Spun CSF) ColorlessMary Rutan HospitalCerebrospinal fluid sample tube volume measurementOrdered By: Oziel Cadena on 76-73-9752Eamaixsy volume (CSF)22.0 mLKing'S Daughters Medical Center OhioColor CSFOrdered By: Oziel Cadena on 31-79-5755Oswhx (CSF)ColorlessColorTrinity Health System West Campus Manual cerebrospinal fluid erythrocytes count (number/volume)Ordered By: Oziel Cadena on 07-97-6553VRL Manual cnt (CSF) [#/Vol]0 /uLKing'S Daughters Medical Center OhioComment on above:The reference interval and other method performance specifications have not been established for this body fluid. The test result must be integrated into the clinical context for interpretation.No Panel InformationOrdered By: Oziel Cadena on 76-29-0165QBA AppearanceClearClear [facility] OhioCSF Tube NumberTube number: 1FMercy Health Defiance HospitalNucleated cells [#/volume] in Cerebral spinal fluid by Manual countOrdered By: Oziel Cadena on 49-00-3272Nshdmyron cells Manual cnt (CSF) [#/Vol]0.003 10*3/uL0-5FMercy Health Defiance HospitalActivated partial thromboplastin time (aPTT) in platelet poor plasma by coagulation aOrdered By: Loi Wong on 43-45-0694oJKT Coag (PPP) [Time]32.8 s25.1-36.5FMercy Health Defiance HospitalBasophils Auto (Bld) [#/Vol]Ordered By: Loi Wong on 60-52-5893Ecyptvzzs (Bld) [#/Vol]0.1 10*3/uL0.0-0.2FMercy Health Defiance HospitalBasophils/100 WBC Auto (Bld)Ordered By: Loi Wong on 04-16-2022 Basophils/100 WBC (Bld)1.2 %.[facility] OhioCreatine kinase [Enzymatic activity/volume] in Serum or PlasmaOrdered By: Loi Wong on 62-83-1055JP [Catalytic activity/Vol]69 U/P57-380DxiwanedsKing'S Daughters Medical Center OhioCreatinine and Glomerular filtration rate.predicted panel (S/P/Bld)Ordered By: Loi Wong on 83-40-0410Qjnccwxahn [Mass/Vol]0.97 mg/dL0.64-1.27[facility] OhioEosinophils Auto (Bld) [#/Vol]Ordered By: Loi Wong on 03-73-4805Odewjzbpihq (Bld) [#/Vol]0.1 10*3/uL0.0-0.45[facility] OhioEosinophils/100 WBC Auto (Bld)Ordered By: Loi Wong on 99-23-8704Iwokabhdxzs/100 WBC (Bld)1.2 %.[facility] Erythrocyte distribution width Auto (RBC) [Ratio]Ordered By: Loi Wong on 20-42-8861Hhbczjppdin distribution width (RBC) [Ratio]14.1 %12.0-14.8[facility] OhioEstimated glomerular filtration rate (GFR) non- AmericanOrdered By: Loi Wong on 58-52-1594YWN/1.73 sq M.predicted among non-blacks MDRD (S/P/Bld) [Vol rate/Area]> 60 mL/MinKing'S Daughters Medical Center OhioHematocrit Auto (Bld) [Volume fraction]Ordered By: Loi Wong on 01-76-6306Xglzbzyfkt (Bld) [Volume fraction]43.2 %38.8-50.0[facility] OhioHemoglobin [Mass/volume] in BloodOrdered By: Loi Wong on 28-23-6703Wjpzukgkqy (Bld) [Mass/Vol]14.7 g/dL13.0-17.0[facility] OhioLaboratory - Chemistry and Chemistry - challengeOrdered By: Loi Wong on 33-22-5174Ebhsauiwznb peptide B (Bld) [Mass/Vol]29.0 pg/mL5-100 [facility] OhioLaboratory - CoagulationOrdered By: Loi Wong on 32-69-5707SU Coag (PPP) [Time]12.0 s9.0-12.9[facility] OhioLaboratory - Hematology and Cell countsOrdered By: Loi Wong on 53-57-4282Yaqhrklxw RBC/100 WBC (Bld) [Ratio]0.1 %0-0.5FMercy Health Defiance HospitalLeukocytes [#/volume] in Blood by Automated countOrdered By: Loi Wong on 50-10-5778ZYJ (Bld) [#/Vol]7.7 10*3/uL4.5-11.0[facility] OhioLymphocytes Auto (Bld) [#/Vol]Ordered By: Loi Wong on 22-91-2956Eirsxtqrctc (Bld) [#/Vol]2.3 10*3/uL1.00-4.8[facility] OhioLymphocytes/100 WBC Auto (Bld)Ordered By: Loi Wong on 26-04-5848Cpekhmoftpy/100 WBC (Bld)29.4 %.[facility] CenterH Auto (RBC) [Entitic mass]Ordered By: Loi Wong on 16-30-7033XKY (RBC) [Entitic mass]32.0 pg27.5-35.2FMercy Health Defiance HospitalMCHC Auto (RBC) [Mass/Vol]Ordered By: Loi Wong on 44-84-0973HQKV (RBC) [Mass/Vol]34.0 g/dL 32.5-35.6FMercy Health Defiance HospitalMCV Auto (RBC) [Entitic vol]Ordered By: Loi Wong on 39-17-5032GSI (RBC) [Entitic vol]94.0 fL83.5-101[facility] OhioMonocytes Auto (Bld) [#/Vol]Ordered By: Loi Wong on 43-67-5130Hvcxdtjny (Bld) [#/Vol]0.6 10*3/uL0.0-0.8[facility] OhioMonocytes/100 WBC Auto (Bld)Ordered By: Loi Wong on 04-16-2022 Monocytes/100 WBC (Bld)7.7 %.[facility] OhioNeutrophils Auto (Bld) [#/Vol]Ordered By: Loi Wong on 81-59-5511Rzuqpprjyvy (Bld) [#/Vol]4.7 10*3/uL1.8-7.7FMercy Health Defiance HospitalNeutrophils/100 WBC Auto (Bld) Ordered By: Loi Wong on 18-89-8095Xbmlrlxklse/100 WBC (Bld)60.5 %.[facility] OhioNo Panel InformationOrdered By: Loi Wong on 74-36-8639Y-Dimer Quantitative (PE/DVT)< 200 ng/mL0-243King[facility] OhioComment on above:The reference range for D-dimer is <243 ng/mL D- dimer units.D-dimer results must be used in conjunction [...] be increased in hospitalized patients due toco-morbid conditions.Estimated GFR ()> 60 mL/Min [facility] OhioComment on above:GFR estimated reference range: According to KDOQI guidelines, <60 ml/min/1.73m2 is sufficient todiagnose a patient with chronic kidney disease.Pharmacy Creatinine Clearance (Chem79.33 [facility] OhioPlatelet mean volume Auto (Bld) [Entitic vol] Ordered By: Loi Wong on 46-78-7743Jpsvdzdm mean volume (Bld) [Entitic vol] 9.7 fL6.6-10.1FMercy Health Defiance HospitalPlatelet poor plasma international normalized ratio (INR) by coagulation assay (relatOrdered By: Loi Wong on 43-50-5903YUA Coag (PPP) [Relative time]1.1 {INR}[facility] OhioComment on above:INR Therapeutic Range A) Pre- and Peroperative OAT started two weeks before surgery. NOT HIP SURGERY: 1.5 - 2.5 HIP SURGERY: 2 - 3B) Primary and secondary prevention of venous THROMBOSIS: 2 - 3C) Active venous thrombosis, pulmonary embolismand prevention of recurrent venous thrombosis: 2 - 3D) Prevention of arterial thromboembolismincluding patients with mechanical heart valves: 3 - 4.5Platelets Auto (Bld) [#/Vol] Ordered By: Loi Wong on 73-93-3683Oukzymulq (Bld) [#/Vol]238 10*3/zM944-122 [facility] OhioRBC Auto (Bld) [#/Vol]Ordered By: Loi Wong on 46-43-5351XZW (Bld) [#/Vol]4.59 10*6/uL3.90-5.60[facility] Health Centererum or plasma anion gap determinationOrdered By: Loi Wong on 20-92-1448Gkljn gap [Moles/Vol]12.4 mmol/L6.0-15.0[facility] Health Centererum or plasma calcium measurement (mass/volume)Ordered By: Loi Wong on 08-20-7330Jgojkpi [Mass/Vol]9.0 mg/dL8.2-10.2FSelect Medical Cleveland Clinic Rehabilitation Hospital, Edwin Shawerum or plasma chloride measurement (moles/volume)Ordered By: Loi Wong on 25-78-2364Oqpurtwf [Moles/Vol]103 mmol/J51-765VeyiqlsavOhioHealth Nelsonville Health Centererum or plasma creatine kinase MB (CKMB)/total creatine kinase (CK) ratio by calculaOrdered By: Loi Wong on 42-62-7080TI.MB Calc [Catalytic fraction]2.0 %0.00-2.50Ohio[facility] Health Centererum or plasma creatine kinase MB measurement (mass/volume)Ordered By: Loi Wong on 53-03-1661AS.MB [Mass/Vol]1.4 ng/mL0.6-6.3FSelect Medical Cleveland Clinic Rehabilitation Hospital, Edwin Shawerum or plasma glucose measurement (mass/volume)Ordered By: Loi Wong on 52-97-7731Ymsbnjs [Mass/Vol]88 mg/lE91-449UmlmrlajvKing'S Daughters Medical Center Ohio Comment on above:ADA recommended reference rangeRandom Glucose Reference Range is dependent on time and content of last meal. Glucose of more than 200 mg/dL in a nonstressed, ambulatory subject supports the diagnosisof Diabetes Mellitus. Serum or plasma potassium measurement (moles/volume)Ordered By: Loi Wong on 22-97-3839Pwxpjhgdj [Moles/Vol]4.3 mmol/L3.5-5.1FSelect Medical Cleveland Clinic Rehabilitation Hospital, Edwin Shawerum or plasma sodium measurement (moles/volume)Ordered By: Loi Wong on 76-91-0970Tapret [Moles/Vol]135 mmol/F514-753GtzyecudqOhioHealth Nelsonville Health Centererum or plasma total carbon dioxide measurement (moles/volume)Ordered By: Loi Wong on 86-67-5909LA9 [Moles/Vol]23.9 mmol/L22.0-30.0[facility] Health Centererum or plasma urea nitrogen measurement (mass/volume) Ordered By: Loi Wong on 09-46-4022Rxfs nitrogen [Mass/Vol]12 mg/dL9- [facility] OhioTroponin I.cardiac [Mass/volume] in Serum or Plasma by High sensitivity methodOrdered By: Loi Wong on 63-77-2933Gldkppus I.cardiac High sensitivity method [Mass/Vol]5 pg/mL0-[facility] OhioCOVID Quick Testingon 22-78-1409XbucfdSkyaxavlGnxrr Coast [employer] Other Quick Fluon 23-25-7347LPFRB Ab CF (S) [Titer]Negative [facility] [employer] Other FLUBV Ab CF (S) [Titer]NegativeFlowery Branch [facility] Other MRI Brain w/o + w/on 38-92-7798ZNL Brain w/o + w/ HISTORY: Blurred vision, unsteadiness, bilateral tinnitus, pain behind right eye, [...] and signed by Jillian Morales on 01/18/2022 1413NormJonathan Connecticut Valley HospitalCell Count + Differential, CSFon 75-72-0005LMQ (Bld) [#/Vol]0.006 10*3/uLabove high threshold0 - 3QU-Aoghirgqzjan-Quvyyih Work Phone: [phone] Count + Differential, CSF70 1 GG-Amduynbduysn-Jtoihpv Work Phone: [phone] Count + Differential, CSF10 % QG-Koeemlbzwdhv-Jdfwehl Work Phone: [phone] Count + Differential, CSF60 % MC-Lsxrcbilpwjd-Umvjpup Work Phone: [phone] Count + Differential, CSF30 % MB-Ytarjtkmefbw-Mycxsfb Work Phone: [phone] Count + Differential, CSFColorlessCOLORLESS XQ-Wyjmcjjaedqt-Lcwpqbn Work Phone: [phone] Count + Differential, GZY254 /uLabove high threshold0 - 2MW-Jhikjqblrrio-Bqmaymp Work Phone: [phone] Count + Differential, CSFTube 1 ZT-Cncppdnxknhq-Ybkdxvi Work Phone: [phone] Count + Differential, CSFClearCLEAR HT-Vreavtyenjli-Rggvkuh Work Phone: Cult, CSF, includes smearon 67-73-5245Ecvrnxxk identified Cx Nom (CSF)EA-Ufneljecfngl-Kwknjay Work Phone: Laboratoryon 02-49-3777Unwgpot in CSF/Albumin in Serum or Plasma (S/P+CSF) [Relative ratio]7.9 {ratio}0.0-9.4IM-Ssjmqympqquh-Uffqmdk Work Phone: [phone] in CSF/Albumin in Serum or Plasma (S/P+CSF) [Relative ratio]PvguonoyKF-Evnscvqklbnf-Dnjkdun Work Phone: [phone] - Chemistry and Chemistry - challengeon 20-13-1143Qalggzr (CSF) [Mass/Vol]36 mg/dLabove high threshold0-35 KZ-Tzrabyxmjnyo-Xjumklz Work Phone: [phone] [Mass/Vol]4578 mg/zG9644-4577 MS-Eothctfrunkq-Otlkinu Work Phone: [phone] (CSF) [Mass/Vol]2.2 mg/dL0.0-6.0 PF-Rncsrzujzpjl-Rqdzeky Work Phone: [phone] [Mass/Vol]496 mg/dLbelow low yzogqrztq282-2291 QF-Sawgwksdarkh-Kqrvhvn Work Phone: [phone] on above:REFERENCE INTERVAL: Immunoglobulin GAccess complete set of age- and/or gender-specific reference intervals for this test in the [facility] Test Directory ([place]).IgG clearance/Albumin clearance (S+CSF) [Ratio]0.56 {ratio}0.28-0.55DQ-Fdvoupftdgze-Uyzforq Work Phone: [phone] synthesis rate Calc (S+CSF) [Mass/Time]0.5 mg/d <=8.9KD-Jgwvyodpgmaq-Tjxczjp Work Phone: [phone]/Albumin (CSF) [Mass ratio]0.06 {ratio}below low threshold0.09-0.76DK-Vsffvxjyznzu-Puwhnnb Work Phone: [phone] bands Elph (CSF) [Interp]NegativeNegative QI-Ldykzscsebms-Lgzbrgp Work Phone: [phone] bands Elph Curtis (CSF) [Interp]See Note HS-Slsbolrhjltw-Ysmpqyz Work Phone: [phone] on above:Isoelectric focusing/immunofixation revealed no oligoclonal bands in either the CSF or the serum. This is considered to be a negative result for oligoclonal bands. Approximately 5 percent of patientswith clinically definitive multiple sclerosis will have a negative result.Performed By: [facility] [place] [address] [id number] Director: Regis Reidbumin (CSF) [Mass/Vol]Canceled LY-Kwcptmrpolqv-Rjclota Work Phone: [phone] [Mass/Vol]EzrwtxqxAY-Eehundypbook-Mnxvxgw Work Phone: [phone] (CSF) [Mass/Vol]56 mg/dL40 - 70 PX-Uuatvpbtbgwg-Rfobbek Work Phone: [phone] (CSF) [Mass/Vol]SbonriruYX-Fbgiarytzobw-Xsoogxp Work Phone: [phone] [Mass/Vol]LgfdnsurIW-Bkltxtpauefi-Nbpnako Work Phone: [phone] clearance/Albumin clearance (S+CSF) [Ratio] LjlixewiXV-Kuffyxsvagmd-Gpuxhew Work Phone: [phone] synthesis rate Calc (S+CSF) [Mass/Time]Canceled AR-Btzlvwccvcmu-Oivkvlc Work Phone: [phone]/Albumin (CSF) [Mass ratio]Canceled KI-Fxktkulkimtv-Dvnthah Work Phone: [phone] bands Elph (CSF) [Interp]Canceled GO-Awwfrnqzdpoa-Byxmazl Work Phone: [phone] bands Elph Curtis (CSF) [Interp]Canceled NI-Fihutgtbgqoo-Egktyhm Work Phone: [phone] (CSF) [Mass/Vol]66 mg/dLabove high gojngnxro23 - 94ZA-Sluderqszoba-Ojocmuk Work Phone: [phone] Panel Informationon {Bands}0-1 ZU-Iujkxqxiggfu-Fslfdku Work Phone: [phone]-Afpbhkbemzau-Lynn Work Phone: [phone]-Cpupuiyeblzf-Seidman Work Phone: Path Review, CSFon 57-82-7444Bqpp Review, CSFRHAILEE [facility] Work Phone: Comment on above:By her/his signature above, the Pathologist listed as making the final interpretation certifies that she/he has personally reviewed this case. HEMORRHAGIC SPECIMEN, NO MALIGNANT CELLS IDENTIFIED.Blood Pressure Cuff Sizeon 69-64-7189Nnad risk assessmenta) No falls within the last nwhfSH-Deiarfm-SuyuktsSelect Specialty Hospital Work Phone: Tobacco use status CPHSa) JplXL-Nsukyap-WhuccnhSelect Specialty Hospital Work Phone: blood Pressure Cuff OmwiPttzaME-Yvtksyz-IvjegkdSelect Specialty Hospital Work Phone: Initial Visit (Neurosurgery)on 06-77-1779Cayrfhd Visit (Neurosurgery)Diagnoses/Problems Weight loss (783.21) (R63.4) Anxiety (300.00) (F41.9) Depression (311) (F32.A) History of high cholesterol (V12.29) (Z86.39) Ischemic demyelination of brain (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 He nowpresents with brain fog tinnitus and what appears [...] He saw Dr. Ba a neurologist in [facility]. He describes his vision as seeing [...] MG Oral Tablet Vitals Vital Signs Recorded: 31Ggb5191 09:38AM Vbyeciqgpsd15.2 F Heart Rate63 Gtgurprrexd68 Evmjopth079 Tayavqabq86 Blood Pressure Cuff SizeAdult Height5 ft 7.13 in Efrbhw197 lb 6 oz BMI Hhhviacfrg46.05 kg/m2 BSA Calculated1.91 Tobacco Usea) Yes Fall Screeninga) No falls within the last year O2 Gxjsabjetz70 Pain Scale7 Physical Exam Constitutional - General appearance: No acute distress, well de (more content not included)...NormalUH TouchworksOffice Visit Presurgicalon 42-46-2049Bzoxai Visit PresurgicalDiagnoses/Problems Assessed Weight loss (783.21) (R63.4) Anxiety (300.00) (F41.9) Depression (311) (F32.A) History of high cholesterol (V12.29) (Z86.39) Ischemic demyelination of brain (341.8,437.1) (G37.8,I67.82) History of squamous cell carcinoma (V10.89) (Z85.89) History of Excision melanoma Provider Impressions Met with the patient and his for lqwulcfinlevm13''s of which were spent in consultation. 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 He nowpresents with brain fog tinnitus and what appears [...] He saw Dr. Ba a neurologist in [facility]. He describes his vision as seeing [...] MG Oral Tablet Vitals Vital Signs Recorded: 51Egi3236 09:38AM Bfldoaofyhq03.2 F Heart Rate63 Zzsnkwipehi74 Wdaepmmk639 Ascnvzasg78 Blood Pressure Cuff SizeAdult Height5 ft 7.13 in Lcqnma794 lb 6 oz BMI Pudqapwwcn00.05 kg/m2 BSA Calculated1.91 Tobacco Usea) Yes Fall Screeninga) No falls within the last year O2 Tgnmefznjz35 Pain Scale7 Ph (more content not included)...NormalUH [facility] W Auto Differential panel (Bld)on 57-67-2335Xrqfrjpaj (Bld) [#/Vol]0.06 10*3/uLNINFSelect Medical [facility] Basophils/100 WBC (Bld)0.8 %[facility] ShawDifferential cell count method Nom (Bld)AutoCleveland ClinicEosinophils (Bld) [#/Vol]0.11 10*3/uLNINFSelect Medical [facility], [facility] ShawEosinophils/100 WBC (Bld)1.5 %[facility] ShawErythrocyte distribution width (RBC) [Ratio]12.8 %11.5 - 15.0 %[facility], [facility] ShawHematocrit (Bld) [Volume fraction]43.7 %39.0 - 51.0 %[facility] ShawHemoglobin (Bld) [Mass/Vol]14.6 g/dL 13.0 - 17.0 g/dLSelect Medical [facility] Clinic Rehabilitation Hospital, Edwin ShawImmature granulocytes (Bld) [#/Vol]NINFCleveland Municipal Hospital And Granite ManorImmature granulocytes/100 WBC (Bld)0.3 %[facility], [facility] ShawLymphocytes (Bld) [#/Vol]1.75 10*3/uLSelect Medical [facility] Clinic Rehabilitation Hospital, Edwin ShawLymphocytes/100 WBC (Bld)23.7 %[facility] HospitalH (RBC) [Entitic mass]32.7 pg26.0 - 34.0 pgClevelBethesda HospitalHC (RBC) [Mass/Vol]33.4 g/dL30.5 - 36.0 g/dLOhio Valley HospitalV (RBC) [Entitic vol]98.0 fL80.0 - 100.0 fLCleveland ClinicMonocytes (Bld) [#/Vol]0.52 10*3/uLNINF [facility] ShawMonocytes/100 WBC (Bld)7.0 %Simon ClinicNeutrophils (Bld) [#/Vol]4.92 10*3/[facility] ClinicNeutrophils/100 WBC (Bld)66.7 %[facility] ShawNucleated RBC (Bld) [#/Vol]NINFCThe MetroHealth SystemNucleated RBC/100 WBC (Bld) [Ratio]0.0 %/100 WBCSelect Medical Cleveland Clinic Rehabilitation Hospital, Edwin ShawPlatelet mean volume (Bld) [Entitic vol] 10.8 fL9.0 - 12.7 fLClevelcritical access hospital ClinicPlatelets (Bld) [#/Vol]246 10*3/uLArgos ClinicRBC (Bld) [#/Vol]4.46 10*6/uL4.20 - 6.00 m/[facility] - AkronWBC (Bld) [#/Vol]7.38 10*3/[facility] - AkronThis is an appended report. These results have been appended to a previously verified report.[facility] HospitalCT Chest W contrast Tristin 76-45-2933FWDAUPSAHR: 1. Left-sided subcentimeter pulmonary nodules, stable. 2. [...] any questions regarding this interpretation, please call [phone]. If you are unable to reach us at the number above, please feel free to contact [facility] eRadiology at [phone]. ZZZ_DO_NOT_USE_DIVISION OF RADIOLOGY* * *Final Report* * * DATE OF EXAM: Oct 06 2021 8:22AM [facility] 0539 - CT CHEST W [...] images through the upper abdomen appear stable. Automotive Heavy Mechanic (topogram) images: No additional findings. ZZZ_DO_NOT_USE_DIVISION OF RADIOLOGYProvider, [facility] - 10/06/2021 * * *Final Report* * * DATE OF EXAM: Oct 06 2021 8:22AM [facility] 0539 - CT CHEST W [...] images through the upper abdomen appear stable. Automotive Heavy Mechanic (topogram) images: No additional findings. IMPRESSION IMPRESSION: [...] any questions regarding this interpretation, please call [phone]. If you are unable to reach us at the number above, please feel free to contact [facility] eRadiology at [phone]. [facility] HospitalCT Neck W contrast Tristin 26-24-6607OBTLUAYPTW: MODERATE DEGENERATIVE CHANGES INVOLVING THE CERVICAL SPINE. [...] any questions regarding this interpretation, please call [phone]. If you are unable to reach us at the number above, please feel free to contact [facility] at [phone]. ZZZ_DO_NOT_USE_DIVISION OF RADIOLOGY* * *Final Report* * * DATE OF EXAM: Oct 06 2021 8:22AM [facility] 0013 - CT NECK SOFT [...] involves the carotid bifurcations and carotid siphons. ZZZ_DO_NOT_USE_DIVISION OF RADIOLOGYProRenown [facility] - 10/06/2021 * * *Final Report* * * DATE OF EXAM: Oct 06 2021 8:22AM [facility] 0013 - CT NECK SOFT [...] any questions regarding this interpretation, please call [phone]. If you are unable to reach us at the number above, please feel free to contact [facility] eRadiology at [phone]. [facility] ShawCT Neck W contrast IVOrdered By: Ccf Provider on 10-06-2021 [facility], [facility] ShawComprehensive metabolic 2000 panelOrdered By: Micheal Vizcaino on 68-49-0573Uovsyll [Mass/Vol]4.5 g/dL3.9 - 4.9 g/dLArgos ClinicALP [Catalytic activity/Vol]82 U/L38 - 113 U/LCleveland ClinicALT [Catalytic activity/Vol]25 U/L10 - 54 U/LCleveland ClinicAnion gap [Moles/Vol]10 mmol/L9 - 18 mmol/L Argos ClinicAST [Catalytic activity/Vol]21 U/L14 - 40 U/LCleveland Clinic Bilirubin [Mass/Vol]0.6 mg/dL0.2 - 1.3 mg/dLArgos ClinicCalcium [Mass/Vol] 9.5 mg/dL8.5 - 10.2 mg/dLArgos ClinicChloride [Moles/Vol]106 mmol/LHigh97 - 105 mmol/LCleveland ClinicCO2 [Moles/Vol]29 mmol/L22 - 30 mmol/LCleveland Clinic Creatinine [Mass/Vol]1.01 mg/dL0.73 - 1.22 mg/dLArgos ClinicGFR/1.73 sq M.predicted among non-blacks MDRD (S/P/Bld) [Vol rate/Area]86 mL/min/{1.73_m2}- PINFClevelKettering Health Greene MemorialComment on above:Estimated Glomerular Filtration Rate (eGFR) is calculated using the 2020 CKD-EPI creatinine equation. This equation utilizes serum creatinine, sex, and age as parameters. The creatinine assay has traceable calibration to isotope dilution-mass spectrometry. Refer to KDIGO guidelines for clinical interpretation. In patients with unstable renal function, e.g. those with acute kidney injury, the eGFRmay not accurately reflect actual GFR.Glucose [Mass/Vol]107 mg/qFQxwn66 - 99 mg/dLSelect Medical [facility] Clinic Rehabilitation Hospital, Edwin ShawComment on above:The [place] Diabetes Association (ADA) provides guidance for cutoff [...] Standards of Medical Care in Diabetes 2016, [place] Diabetes Association. Diabetes Care. 2016.39(Suppl 1). Interpretation and review of laboratory resultsAbnormalCleveland ClinicPotassium [Moles/Vol]4.2 mmol/L3.7 - 5.1 mmol/LCleveland ClinicProtein [Mass/Vol]6.5 g/dL 6.3 - 8.0 g/dLSelect Medical OhioHealth Rehabilitation Hospitalodium [Moles/Vol]145 mmol/EBkih759 - 144 mmol/L [facility], [facility] ShawUrea nitrogen [Mass/Vol]10 mg/dL9 - 24 mg/dLThe Jewish HospitalNo Panel Informationon 20-44-8597Ailqmjkrm Study observation (narrative)[facility] ShawCOVID + FLU Quick Testingon 10-43-0621WUPB-CoV-2 (COVID-19) RNA JER+probe Ql (Unsp spec)NegativeNohedrick medical center [facility] Other COVID + FLU Quick TestingNegativeNoParko Other COVID Quick Testingon 36-70-6760DkdgljNsjtfrqlFdsvj [facility] Other Basophils Auto (Bld) [#/Vol]on 77-14-3873Mlpkgufjl (Bld) [#/Vol]0.0 10*3/uL0.0-0.2FJ.W. Ruby [facility] Hospital CtrBasophils/100 WBC Auto (Bld)on 85-19-2070Cblhzaonc/100 WBC (Bld)0.6 %[facility] CtrBlood hemoglobin measurement (mass/volume)on 17-19-8042Nojnwvcmoe (Bld) [Mass/Vol]14.4 g/dL13.0-17.0[facility] CtrBlood leukocytes automated count (number/volume)on 67-97-7035XMA (Bld) [#/Vol]7.4 10*3/uL4.5-11.0 [facility] CtrEosinophils Auto (Bld) [#/Vol]on 09-20-2020 Eosinophils (Bld) [#/Vol]0.1 10*3/uL0.0-0.45[facility]tr Eosinophils/100 WBC Auto (Bld)on 99-86-8533Aybibnbptme/100 WBC (Bld)0.9 % [facility] CtrErythrocyte distribution width Auto (RBC) [Ratio] on 36-35-5522Nbtgfbvrose distribution width (RBC) [Ratio]14.6 %12.0-14.8 [facility] CtrHematocrit Auto (Bld) [Volume fraction]on 61-50-5363Vornkbomsk (Bld) [Volume fraction]41.7 %38.8-50.0[facility] CtrLymphocytes Auto (Bld) [#/Vol]on 98-20-8228Sagcuxbhwgj (Bld) [#/Vol] 1.6 10*3/uL1.00-4.8[facility] CtrLymphocytes/100 WBC Auto (Bld) on 76-84-4506Pycdpiatiiw/100 WBC (Bld)21.3 %[facility] HospitalMCH Auto (RBC) [Entitic mass]on 07-49-9829IIK (RBC) [Entitic mass]32.4 pg27.5-35.2 [facility] HospitalMCHC Auto (RBC) [Mass/Vol]on 61-82-0354FEUQ (RBC) [Mass/Vol]34.5 g/dL32.5-35.6FSt. Charles HospitalMCV Auto (RBC) [Entitic vol]on 17-21-0665YWP (RBC) [Entitic vol]93.9 fL83.5-101[facility] CtrMonocytes Auto (Bld) [#/Vol]on 75-23-8033Mxxrhqxsp (Bld) [#/Vol]0.6 10*3/uL0.0-0.8[facility] CtrMonocytes/100 WBC Auto (Bld)on 03-38-2656Zynzsbyvr/100 WBC (Bld)8.6 %[facility]tr Neutrophils Auto (Bld) [#/Vol]on 47-14-4834Rdbahekdtdm (Bld) [#/Vol]5.1 10*3/uL 1.8-7.7FJ.W. Ruby Memorial Hospital CtrNeutrophils/100 WBC Auto (Bld)on 09-20-2020 Neutrophils/100 WBC (Bld)68.6 %[facility] CtrOtheron 09-20-2020 Nucleated RBC/100 WBC (Bld) [Ratio]0.0 %0-0.5FSt. Charles Hospital Platelet mean volume Auto (Bld) [Entitic vol]on 55-78-6613Hhsklivg mean volume (Bld) [Entitic vol]9.3 fL6.6-10.1FJ.W. Ruby Memorial Hospital CtrPlatelets Auto (Bld) [#/Vol]on 48-25-4805Rqxswjmsz (Bld) [#/Vol]182 10*3/kY006-180QpiczjakfGenesis Hospital CtrRBC Auto (Bld) [#/Vol]on 18-23-0270XIS (Bld) [#/Vol]4.44 10*6/uL3.90-5.60[facility] CtrBody fluid albumin measurement (mass/volume)on 59-80-5049Esgplez (Body fld) [Mass/Vol]4.3 g/dL3.2-5.5FJ.W. Ruby [facility] Hospital CtrCholesterol [Mass/volume] in Serum or Plasmaon 09-13-2020 Cholesterol [Mass/Vol]219 mg/sU274-001KdauvcarpGenesis Hospital CtrComment on above:Chol less than 200 mg/dl low riskChol 201-239 mg/dl borderline riskChol 240 mg/dl and greater high riskCholesterol in LDL Calc [Mass/Vol]on 09-13-2020 Cholesterol in LDL [Mass/Vol]149 mg/dL0-100[facility] CtrComment on above:LDL ATP III CLASSIFICATIONLDL less than 100 mg/dL OptimalLDL 100-129 mg/dL Near or above oorvwajEQL345-937 mg/dL Borderline highLDL 160-189 mg/dL HighLDL greater than 189 mg/dL Very highCholesterol in VLDL Calc [Mass/Vol]on 15-87-0301Htksexlcljg in VLDL [Mass/Vol]28 mg/dLOur Lady Of Mercy Hospital Creatinine and Glomerular filtration rate.predicted panel (S/P/Bld)on 09-13-2020 Creatinine [Mass/Vol]0.89 mg/dL0.64-1.27[facility] CtrGFR/1.73 sq M.predicted among non-blacks MDRD (S/P/Bld) [Vol rate/Area]on 09-13-2020 GFR/1.73 sq M predicted among non-blacks MDRD (S/P/Bld) [Vol rate/Area]> 60 mL/MinGenesis Hospital CtrGlobulin Calc (S) [Mass/Vol]on 09-13-2020 Globulin (S) [Mass/Vol]2.0 g/dLGenesis Hospital CtrNo Panel Informationon 69-33-8524Laklxgojq GFR ()> 60 mL/MinGenesis Hospital CtrComment on above:GFR estimated reference range: According to KDOQI guidelines, <60 ml/min/1.73m2 is sufficient todiagnose a patient with chronic kidney disease.Otheron 74-80-8879VKH/1.73 sq M.predicted MDRD (S/P/Bld) [Vol rate/Area]> 60 mL/MinGenesis Hospital CtrComment on above:GFR estimated reference range: According to KDOQI guidelines, <60 ml/min/1.73m2 is sufficient todiagnose a patient with chronic kidney disease.Pharmacy Creatinine Clearance (ChemN/[facility] CtrProstate Specific Antigen Screen 0.480 ng/mL0.000-4.000[facility] CtrProtein [Mass/volume] in Serum or Plasmaon 37-22-3380Fcnnagq [Mass/Vol]6.3 g/dL6.1-7.9[facility] VxhGCWC-JnU-4 (COVID-19) IgG Ab [Presence] in Serum or Plasma by Immunoassayon 34-92-2990KDZQ-CoV-2 (COVID-19) IgG Ab [Presence] in Serum or Plasma by ImmunoassayPositiveNegativeGenesis Hospital CtrComment on above:Results suggest recent or prior infection with SARS-CoV-2.Correlation with epidemiologic risk factors and otherclinical and laboratory findings is recommended. Serologicresults should not be used as the sole basis to diagnose orexclude recent SARS-CoV-2 infection. False positive resultsinfrequentlyoccur due to prior infection with other humanCoronaviruses.This assay was performed using the [employer] Liaison(R)SARS-CoV-2 S1/S2 IgG assay.This assay detects antibodies against SARS-CoV-2 spikeprotein including the receptor binding domain (RBD).Performed at: [address] [id number] Director: Florencio Wu PhD, Phone: [phone]-MrL-5 (COVID-19) IgG IA QlPositiveNegativeGenesis Hospital CtrComment on above:Results suggest recent or prior infection with SARS-CoV-2.Correlation with epidemiologic risk factors and otherclinical and laboratory findings is recommended. Serologicresults should not be used as the sole basis to diagnose orexclude recent SARS-CoV-2 infection. False positive resultsinfrequentlyoccur due to prior infection with other humanCoronaviruses.This assay was performed using the [employer] Liaison(R)SARS-CoV-2 S1/S2 IgG assay.This assay detects antibodies against SARS-CoV-2 spikeprotein including the receptor binding domain (RBD).Performed at: [address] [id number] Director: Florencio Wu PhD, Phone: [phone] or plasma alanine aminotransferase measurement without P-5'-P (enzymatic activion 17-00-5692RGE No additional P-5'-P [Catalytic activity/Vol]19 U/L33-35GuevdvtbpGenesis Hospital CtrSerum or plasma albumin/globulin mass ratioon 09-13-2020 Albumin/Globulin [Mass ratio]2.2 {ratio}[facility] CtrSerum or plasma alkaline phosphatase measurement (enzymatic activity/volume)on 09-13-2020 ALP [Catalytic activity/Vol]53 U/C61-81WidxcdajgGenesis Hospital CtrSerum or plasma aspartate aminotransferase measurement (enzymatic activity/volume)on 07-25-5296VRN [Catalytic activity/Vol]22 U/H57-82RetopcphvOur Lady Of Mercy Hospital Serum or plasma calcium measurement (mass/volume)on 15-71-2721Dthqhal [Mass/Vol] 9.1 mg/dL8.2-10.2FJ.W. [facility] Hospital CtrSerum or plasma chloride measurement (moles/volume)on 23-64-6151Ewaenupm [Moles/Vol]105 mmol/L95-114 [facility] CtrSerum or plasma glucose measurement (mass/volume) on 95-59-8101Szrpqpm [Mass/Vol]97 mg/kA37-078JdkgselztOur Lady Of Mercy Hospital Comment on above:ADA recommended reference rangeRandom Glucose Reference Range is dependent on time and content of last meal. Glucose of more than 200 mg/dL in a nonstressed, ambulatory subject supports the diagnosisof Diabetes Mellitus. Serum or plasma high density lipoprotein (HDL) cholesterol measurementon 22-61-7094Faczmglvudm in HDL [Mass/Vol]41 mg/hA30-62OsulihsitGenesis Hospital CtrComment on above:HDL CHOL ATP-III CLASSIFICATION Cardiovascular RiskHDL > or equal to 60 mg/dL LOWHDL < 40 mg/dL HIGHSerum or plasma potassium measurement (moles/volume)on 05-00-7038Cbkouvcwc [Moles/Vol]4.2 mmol/L3.5-5.1FJ.W. Ruby Memorial Hospital CtrSerum or plasma sodium measurement (moles/volume)on 24-31-1203Ceklzs [Moles/Vol]135 mmol/Q279-631HfzdisbmyGenesis Hospital CtrSerum or plasma thyroid stimulating hormone (TSH) measurement by high sensitivity met on 12-20-9038FAW Qn1.66 u[iU]/mL0.45-5.33[facility] CtrSerum or plasma total bilirubin measurement (mass/volume)on 08-36-6220Dqiueuilj [Mass/Vol]0.9 mg/dL0.3-1.2FJ.W. [facility] CtrSerum or plasma total carbon dioxide measurement (moles/volume)on 36-05-4508ZP5 [Moles/Vol]22.5 mmol/L 22.0-30.0[facility] CtrSerum or plasma total cholesterol/high density lipoprotein (HDL) cholesterol mass gia 09-13-2020 Cholesterol.total/Cholesterol in HDL [Mass ratio]5.3 {ratio}[facility] CtrSerum or plasma urea nitrogen measurement (mass/volume)on 09-13-2020 Urea nitrogen [Mass/Vol]12 mg/dL9-23[facility] CtrTS DL <= 0.005 mIU/L Qnon 35-10-9466LYC Qn1.66 m[IU]/L0.45-5.33[facility] CtrTriglyceride [Mass/volume] in Serum or Plasmaon 42-16-9914Pdwdxthiruhe [Mass/Vol]144 mg/pH92-813GhptshgbcGenesis Hospital CtrComment on above:TRIG ATP III CLASSIFICATIONTRIG less than 150 mg/dL NormalTRIG 150-199 mg/dL Borderline highTRIG 200-500 mg/dL High TRIG greater than 500 mg/dL Very highStandard traceable to the Center for Disease Conrtrol and Prevention (CDC) test method. History and Physicalon 47-09-7347Cuburxi and PhysicalHOSPITAL REGULATIONS: ALL Positive Important Negative Findings Shall Be [...] eye. Coleen Grajeda M.D. annette Dictated: 04/14/2019 #[id number] Typed 04/14/2019 #[id number] cc: Coleen Grajeda M.D.[facility] So[facility] Medical CenterComment on above:Result Comment: Electronically Signed By: Coleen Grajeda MD.br\Date and Time Signed: 04/18/19 09:54 EDTOperative Reporton 74-11-9449Lclzvtify ReportDate of Surgery: 04/14/2019 SURGEON: Coleen Grajeda M.D. [...] and inferior fornices of the eye. A Sinbad: online travellers cluban manometer was set on the eye at [...] condition. Coleen Grajeda M.D. gls Dictated: 04/14/2019 #[id number] Typed: 04/15/2019 #[id number] cc: Coleen Grajeda M.D.[facility] So[facility] Medical CenterComment on above:Result Comment: Electronically Signed By: Coleen Grajeda MD\.br\Date and Time Signed: 04/18/19 09:54 EDTCoding Summary.on 34-27-4187Jymtrs Summary.CODING DATE: 04/15/[address] 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 Name: SHANTEL MELENDEZ /Sex: 1960 Male Med Rec #: [id number] Physician: Coleen Grajeda MD Financial #: [id number] Pt. Type: A Room/Bed: [place] [address] Admit/Disch: 04/14/19 12:59:00 - 04/14/19 16:00:00 Institution: [...] Performed Surgeon - Primary Scrub - Primary Pipe Joints Supervisor - Primary Time In 04/14/19 14:55:00 [...] VERNON, Pauly GOODEN, RN, Tierra Role Performed Pipe Joints Supervisor - Primary Pipe Joints Supervisor - Relief Time In 04/14/19 14:55:00 04/14/19 14:55:00 Time Out 04/14/19 15:17:00 04/14/19 15:00:00 Procedure CATARACT EXTRACTION W/ CATARACT EXTRACTION W/ INTRAOCULAR LENS(Left) INTRAOCULAR LENS(Left) Comments Last Modified By: Sachi VERNON, KaJohnathon Rhodes RN 04/14/19 15:16:27 04/14/19 15:16:27 Perioperative Protocols [...] Unable to Visualize, Outcomes Met? Yes Warm, [place] [place], [place] Last Modified By: Johnathon Karimi RN [...] Entry 1 Via Cart By Patrick MYERS, Tierra VERNON Safety Precautions Side Rails Up Outcomes Met? [...] RN Patient Status Stable Skin. Condition Warm, [place], Dry Description unchanged Airway Maintenance Oxygen in Use? No Outcomes Met? Yes Last Modified By: Johnathon aKrimi RN 04/14/19 15:07:48 Post-Care Text: The patient [...] safely administered during the perioperative period For Otilio please see scanned medication reconcilliation form for medications used at the field during the procedure. 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 FT-BAUSCH [employer] LOMB Catalog ?# [id number] 21.0[F] Expiration Date 10/16/23 Unique Device [id number] Identifier (BERNARD) Usage Data FT Implant Site [...] RN 04/14/19 15:16 Asya Alves CST 04/15/19 14:44[facility]In[facility] Patient Summaryon [id number] [facility] PERSON INFORMATION Name: SHANTEL MELENDEZ PHYSICIANS Admitting Physician: Coleen Grajeda MD Attending Physician: Coleen Grajeda MD PCP: JILLIAN BARONE DO Discharge Diagnosis: Cataract Comment: PATIENT EDUCATION INFORMATION Instructions: Medication Leaflets: Follow up: With: Address: When: Coleen Mcgee [facility] [address], [place] [id number] Business (1) Comments: Call physician if symptoms worsen Keep scheduled appointment [facility] L[facility] Recordon [id number] OR PACU II RecordPACU Phase II Document Type FT Summary Primary Physician: Coleen Grajeda MD Finalized Date/Time: 04/14/19 17:54:42 Pt. Name: SHANTEL MELENDEZ Fatimah Roland/Sex: 1960 Male Med Rec #: [id number] Physician: Coleen Grajeda MD Financial #: [id number] Pt. Type: A Room/Bed: [place] [address] Admit/Disch: 04/14/19 12:59:23 - Institution: Case Times [...] and monitors body temperature Evaluates postoperative respiratory statusEvaluates postoperative cardiac status Evaluates postoperative neurological status Assesses pain control, collaborated in initiating patient-controlled analgesia and implements alternative methods of pain control Verifiesallergies, administers prescribed medications and solutions, evaluates response to medications Entry 1 In PACU II 04/14/19 15:20:00 Discharge from PACU 04/14/19 16:00:00 II Outcomes Met? Yes Last Modified By: Lizeth Rush RN 04/14/19 17:54:41 Post-Care Text: The patient demonstrates knowledge of the expected response to the operative or invasive procedure The patient's care is consistent with the individualized perioperative plan of care The patient's rightto privacy is maintained The patient's value system, [...] with or improved from baseline levels established preoperativelyThe patient's cardiovascular status is consistent with or improved from baseline levels established preoperatively The patient's neurological status is consistent with or improved from baseline levels established preoperatively The patient demonstrates and/or reports adequate pain control throughout the perioperative period The patient received appropriate medication(s), safely administered during the perioperativeperiod Finalized By: Lizeth Rush RN Document Signatures Signed By: Lizeth Rush RN 04/14/19 17:54[facility] Preoperative Recordon [id number] OR Preoperative RecordPreOp Document Type FT Summary Primary Physician: Coleen Grajeda MD Finalized Date/Time: 04/14/19 15:14:03 Pt. Name: SHANTEL MELENDEZ Fatimah Ashraf./Sex: 1960 Male Med Rec #: [id number] Physician: Coleen Grajeda MD Financial #: [id number] Pt. Type: Room/Bed: [place] [address] Admit/Disch: 04/14/19 12:59:23 - Institution: Case Times [...] Signatures Signed By: Johnathon Karimi RN 04/14/19 15:14[facility]Patient Education - Texton [id number] Education - TextK[facility] Vital Signs Date TimeVital SignValuePerforming NsumukyxwRjjabsoh68-91-4811 14:04-0400Body hyjacw479.72 cmBreTeamLease Services DO Work Phone: [facility]10-15-2025 14:04-0400 Body mass index (BMI) [Ratio]24.1 kg/b1VmbvzFerroKin Biosciences DO Work Phone: [facility]10-15-2025 14:04-0400 Body enkvzk58.12 kgBrett Kuns DO Work Phone: [facility]10-15-2025 14:04-0400 Diastolic blood tdbzpbiv76 mm[Hg]Griselda Kuns DO Work Phone: 1(623)[address]10-15-2025 14:04-0400 Heart efna241 /minBrett Kuns DO Work Phone: 1(868)0-[address] [place], [place] 7644210-15-2025 14:04-0400 Respiratory rate16 /minBrett Kuns DO Work Phone: 1(175)[address]10-15-2025 14:04-0400 SaO2% (BldA) [Mass fraction]99 %Griselda Kuns DO Work Phone: 1(360)[address]10-15-2025 14:04-0400 Systolic blood toyangdf343 mm[Hg]Griselda Kuns DO Work Phone: 1(634)[address] [place], [place] 3921809-04-2025 11:25-0400 Body wwefki999.72 cmBrett Kuns DO Work Phone: 1(896)[address] [place], [place] 3921809-04-2025 11:25-0400 Body mass index (BMI) [Ratio]24.1 kg/w5Asmta Kuns DO Work Phone: 1(002)[address] [place], [place] 3921809-04-2025 11:25-0400 Body aewhhc60.12 kgBrett Kuns DO Work Phone: 1(471)[address]09-04-2025 11:25-0400 Diastolic blood dfihrurb09 mm[Hg]Griselda Kuns DO Work Phone: 1(388)[address]09-04-2025 11:25-0400 Heart qewq171 /minBrett Kuns DO Work Phone: 1(602)[address]09-04-2025 11:25-0400 Respiratory rate16 /minBrett Kuns DO Work Phone: 1(221)[address] [place], [place] 7644209-04-2025 11:25-0400 SaO2% (BldA) [Mass fraction]98 %Griselda Kuns DO Work Phone: [facility]09-04-2025 11:25-0400 Systolic blood zejxsnpj367 mm[Hg]Griselda Kuns DO Work Phone: [phone] [place]08-20-2025 14:41-0400 Body mass index (BMI) [Ratio]24.18 kg/v8ToxlxhvOziel Cadena MD Work Phone: 1(271)[address]08-20-2025 14:41-0400Body zuebwh60.12 kgOziel Cadena MD Work Phone: 1(085)[address]08-20-2025 14:41-0400Diastolic blood bludsdjr65 mm[Hg]Oziel Cadena MD Work Phone: 1(154)[address] [place], [place] [address]Gkavengvcn15-80-7916 14:41-0400Heart kzim563 /min Oziel Cadena MD Work Phone: 1(690)[address] [place], [place] [address]Nychislkgx08-22-3974 14:41-0400Systolic blood qxhzthyr254 mm[Hg]Oziel Cadena MD Work Phone: 1(131)2-[address] [place], [place] [address]Expobghzsk50-97-7394 15:20-0400Body mceawr847.72 cmKatykeith Mendezs DO Work Phone: 1([phone])[phone]07-28-2025 15:20-0400 Body mass index (BMI) [Ratio]27 kg/c5Xtxcv Kuns DO Work Phone: [address] [place], [place] 73[address]907-28-2025 15:20-0400 Body .73 kgBrett Kuns DO Work Phone: 1(746)[phone]07-28-2025 15:20-0400 Diastolic blood pwsnsryk53 mm[Hg]Griselda Kuns DO Work Phone: [facility]07-28-2025 15:20-0400 Heart rate76 /minBrett Andreas DO Work Phone: [facility]07-28-2025 15:20-0400 Systolic blood utvlsffx998 mm[Hg]Griselda Kuns DO Work Phone: 1([phone]07-09-2025 14:12-0400 Body mass index (BMI) [Ratio]25.09 kg/o0DhqxxavOziel Cadena MD Work Phone: [facility]Bnmwrzsilp44-93-1418 14:12-0400Body upggbr55.84 kgOziel Cadena MD Work Phone: 1(572)9-[address] [place], [place] [address]Yirkknczuz72-62-8226 14:12-0400Diastolic blood gmyjsjai54 mm[Hg]Oziel Cadena MD Work Phone: [address] [place], [place] [address]Xlfpaiirlm76-98-9586 14:12-0400Heart rate85 /min Oziel Cadena MD Work Phone: 1([phone] SpringfieldSnqblnerfw17-07-9942 14:12-0400Systolic blood pbmcdomb563 mm[Hg]Oziel Cadena MD Work Phone: 1([phone] SpringfieldTwqslbztwc79-40-9890 14:04-0400Body xidumn713.72 cmBrett Kuns DO Work Phone: 1([phone]06-04-2025 14:04-0400 Body hjalkkgwujh650.7 [degF]Griselda Kuns DO Work Phone: [facility]06-04-2025 14:04-0400 Heart rate96 /minBrett Kuns DO Work Phone: [facility]06-04-2025 14:04-0400 Respiratory rate18 /minBrett Kuns DO Work Phone: [facility]06-04-2025 14:04-0400 SaO2% (BldA) [Mass fraction]99 %Griselda Kuns DO Work Phone: [facility]06-02-2025 14:03-0400 Body .72 cmBrett Kuns DO Work Phone: [phone]06-02-2025 14:03-0400 Body mass index (BMI) [Ratio]26.3 kg/w8Htjzo Kuns DO Work Phone: 1(834)[address]06-02-2025 14:03-0400 Body siduki40.47 kgBrett Kuns DO Work Phone: 1(552)8-[address] [place], [place] 7644206-02-2025 14:03-0400 Diastolic blood xvjjiepm78 mm[Hg]Griselda Kuns DO Work Phone: 1(166)[address]06-02-2025 14:03-0400 Heart bykb611 /minBrett Kuns DO Work Phone: 1(952)[address] [place], [place] 3921806-02-2025 14:03-0400 Systolic blood nbocakqk033 mm[Hg]Griselda Kuns DO Work Phone: 1(804)[address]05-21-2025 10:30-0400 Diastolic blood dxdueqet52 mm[Hg]Griselda Kuns DO Work Phone: 1(149)[address]05-21-2025 10:30-0400 Heart rate71 /minBrett Kuns DO Work Phone: 1(750)[address]05-21-2025 10:30-0400 Respiratory rate20 /minBrett Kuns DO Work Phone: 1(104)3-[address] [place], [place] 7644205-21-2025 10:30-0400 SaO2% (BldA) [Mass fraction]98 %Griselda Kuns DO Work Phone: 1(405)3-[address] [place], [place] 7644205-21-2025 10:30-0400 Systolic blood hfkujydz138 mm[Hg]Griselda Kuns DO Work Phone: 1(970)[address]05-21-2025 07:12-0400 Body nlnqke324.72 cmBrett Kuns DO Work Phone: 1(017)8-[address] [place], [place] 7644205-21-2025 07:12-0400 Body tvdaau63.11 kgBrett Kuns DO Work Phone: 1(538)890-[address] [place], [place] 7644205-12-2025 09:57-0400 Body yeztxh115.72 cmBrett Kuns DO Work Phone: 1(798)[address] [place], [place] 7644205-12-2025 09:57-0400 Body mass index (BMI) [Ratio]26.4 kg/z4Friqn Kuns DO Work Phone: 1(850)[address]05-12-2025 09:57-0400 Body dvbyvn29.92 kgBrett Kuns DO Work Phone: 1(021)[address]05-12-2025 09:57-0400 Diastolic blood bbzhmgos55 mm[Hg]Griselda Kuns DO Work Phone: 1(842)[address]05-12-2025 09:57-0400 Heart rate64 /minBrett Kuns DO Work Phone: 1(827)[address]05-12-2025 09:57-0400 Respiratory rate18 /minBrett Kuns DO Work Phone: 1(407)[address]05-12-2025 09:57-0400 SaO2% (BldA) [Mass fraction]98 %Griselda Kuns DO Work Phone: 1(883)[address]05-12-2025 09:57-0400 Systolic blood jxvoujgs457 mm[Hg]Griselda Kuns DO Work Phone: 1(107)[address]04-28-2025 09:06-0400 Body vsuurt117.7 cmDoretha Harris MD Work Phone: [facility]04-28-2025 09:06-0400 Body mass index (BMI) [Ratio]25.54 kg/z7XzmocvpDoretha Harris MD Work Phone: [facility]04-28-2025 09:06-0400 Body fbdmeo61.2 kgDoretha Harris MD Work Phone: [facility]04-28-2025 09:06-0400 Diastolic blood ntdvnofy20 mm[Hg]Doretha Harris MD Work Phone: [facility]04-28-2025 09:06-0400 Heart rate75 /minDoretha Harris MD Work Phone: [facility]04-28-2025 09:06-0400 Systolic blood fwcozshv662 mm[Hg]Doretha Harris MD Work Phone: 1(608)104-[address] [place], [place] 6403004-25-2025 13:05-0400 Body egdtxg032.72 cmBrett Kuns DO Work Phone: 1(386)[address]04-25-2025 13:05-0400 Body mass index (BMI) [Ratio]25.4 kg/u1Cdvyi Kuns DO Work Phone: 1(763)1-[address] [place], [place] 7644204-25-2025 13:05-0400 Body kforll35.74 kgBrett Kuns DO Work Phone: [facility]04-25-2025 13:05-0400 Diastolic blood hqotjgfc65 mm[Hg]Griselda Kuns DO Work Phone: [phone]([phone]04-25-2025 13:05-0400 Heart rate76 /minBrett Kuns DO Work Phone: [facility]04-25-2025 13:05-0400 Systolic blood mm[Hg]Griselda Kuns DO Work Phone: [facility]04-21-2025 18:42-0400 Diastolic blood fapswlaj04 mm[Hg]Griselda Kuns DO Work Phone: [facility]04-21-2025 18:42-0400 Heart rate80 /minBrett Kuns DO Work Phone: [facility]04-21-2025 18:42-0400 Respiratory rate16 /minBrett Kuns DO Work Phone: [facility]04-21-2025 18:42-0400 SaO2% (BldA) [Mass fraction]98 %Griselda Kuns DO Work Phone: [phone]([phone]04-21-2025 18:42-0400 Systolic blood qayeamrh144 mm[Hg]Griselda Kuns DO Work Phone: 1([phone]04-21-2025 14:04-0400 Body jbrupd669.72 cmBrett Kuns DO Work Phone: 1(002)[address]04-21-2025 14:04-0400 Body lcveaxkgwxg91.2 [degF]Griselda Kuns DO Work Phone: 1(414)[address]04-21-2025 14:04-0400 Body rpbyqt05.9 kgBrett Kuns DO Work Phone: 1(667)7-[address] [place], [place] 7644204-05-2025 14:00-0400 Heart rate88 /minBrett Kuns DO Work Phone: 1(704)1-[address] [place], [place] 7644204-05-2025 14:00-0400 Respiratory rate20 /minBrett Kuns DO Work Phone: 1(301)3-[address] [place], [place] 7644204-05-2025 14:00-0400 SaO2% (BldA) [Mass fraction]93 %Griselda Kuns DO Work Phone: 1(657)5-[address] [place], [place] 7644204-05-2025 13:48-0400 Body viiqsqqfhis50.4 [degF]Griselda Kuns DO Work Phone: 1(499)8-[address] [place], [place] 7644204-05-2025 13:48-0400 Diastolic blood mm[Hg]Griselda Kuns DO Work Phone: 1(671)3-[address] [place], [place] 7644204-05-2025 13:48-0400 Systolic blood bermzbyc690 mm[Hg]Griselda Kuns DO Work Phone: 1(584)9-[address] [place], [place] 7644204-05-2025 10:55-0400 Body .72 cmBrett Kuns DO Work Phone: 1(895)5-[address] [place], [place] 7644204-05-2025 10:55-0400 Body gevrdt53.9 kgBrett Kuns DO Work Phone: 1(867)[address] [place], [place] 7644203-27-2025 10:46-0400 Body mass index (BMI) [Ratio]27.06 kg/l5NiybjsrOziel Cadena MD Work Phone: 1(047)0-[address] [place], [place] [address]Oumqwfcasj10-47-6311 10:46-0400Body kvueaz16.74 kgOziel Cadena MD Work Phone: 9(760)[facility] [place], [place] [address]Veqcaebnyu00-62-2703 10:46-0400Diastolic blood mm[Hg]Oziel Cadena MD Work Phone: 9(691)1-[address] [place], [place] [address]Vzidxdurqr70-75-0949 10:46-0400Heart rate61 /min Oziel Cadena MD Work Phone: 8(618)4-[address] [place], [place] [address]Uhzggpfwke54-84-0533 10:46-0400Systolic blood ihurnyoe025 mm[Hg]Oziel Cadena MD Work Phone: 6(533)[address] [place], [place] [address]Pgrastyeco40-56-0955 09:22-0400Body iuetav088.72 cmBrett Kuns DO Work Phone: 1(646)[address]03-27-2025 09:22-0400 Body mass index (BMI) [Ratio]28.1 kg/v3Pjgoc Kuns DO Work Phone: 1(951)0-[address] [place], [place] 7644203-27-2025 09:22-0400 Body gyyadsxkgjq30.6 [degF]Griselda Kuns DO Work Phone: 1(995)[address] [place], [place] 7644203-27-2025 09:22-0400 Body zprubs49 kgBrett Kuns DO Work Phone: 8(198)[address]03-27-2025 09:22-0400 Diastolic blood ryfcyzsn60 mm[Hg]Griselda Kuns DO Work Phone: 1(747)[address]03-27-2025 09:22-0400 Heart rate78 /minBrett Kuns DO Work Phone: 1(972)7-4891[facility]03-27-2025 09:22-0400 Respiratory rate16 /minBrett Kuns DO Work Phone: 1(892)6-[address] [place], [place] 7301903-27-2025 09:22-0400 SaO2% (BldA) [Mass fraction]98 %Griselda Kuns DO Work Phone: 1(806)2-[address] [place], [place] 7644203-27-2025 09:22-0400 Systolic blood mm[Hg]Griselda Kuns DO Work Phone: 1(590)[address]02-13-2025 13:26-0500 Body mass index (BMI) [Ratio]27.37 kg/y5UqpaodoOziel Cadena MD Work Phone: 1(039)9-[address] [place], [place] [address]Bgfhgngdix82-87-2262 13:26-0500Body mqfkdy67.65 kgOziel Cadena MD Work Phone: 1(297)7-[address] [place], [place] [address]Mmkdjflwlp56-84-5261 13:26-0500Diastolic blood czfrxrue66 mm[Hg]Oziel Cadena MD Work Phone: 1(333)0-[address] [place], [place] [address]Vquhvqakby89-61-2047 13:26-0500Heart rate81 /min Oziel Cadena MD Work Phone: 1(380)6-[address] [place], [place] [address]Wpjnmftnsv83-25-8105 13:26-0500Systolic blood wrjdzums925 mm[Hg]Oziel Cadena MD Work Phone: 1(437)3-[address] [place], [place] [address]Agpjjltljs27-76-2789 09:54-0500Body zdlujp641.72 cmBrett Andreas DO Work Phone: 1(537)5-[address] [place], [place] 7644201-16-2025 09:54-0500 Body mass index (BMI) [Ratio]28.4 kg/z0Iiqou Andreas DO Work Phone: 1(337)3-[address] [place], [place] 7644201-16-2025 09:54-0500 Body .82 kgBrett Kuns DO Work Phone: [facility]01-16-2025 09:54-0500 Diastolic blood prkydfgg85 mm[Hg]Griselda Kuns DO Work Phone: [facility]01-16-2025 09:54-0500 Heart rate81 /minBrett Kuns DO Work Phone: [facility]01-16-2025 09:54-0500 Respiratory rate18 /minBrett Kuns DO Work Phone: [facility]01-16-2025 09:54-0500 SaO2% (BldA) [Mass fraction]98 %Griselda Kuns DO Work Phone: [facility]01-16-2025 09:54-0500 Systolic blood nolzjnue160 mm[Hg]Griselda Kuns DO Work Phone: [facility]01-15-2025 14:18-0500 Body mass index (BMI) [Ratio]28.28 kg/k7HpmamjaOziel Cadena MD Work Phone: [facility]Bctegvxscn39-89-5620 14:18-0500Body ujcgvo13.37 kgOziel Cadena MD Work Phone: [facility] SpringfieldRcxetdxfzn61-19-2659 14:18-0500Diastolic blood rzpwudov14 mm[Hg]Oziel Cadena MD Work Phone: [facility] SpringfieldZickbkiyay19-36-8914 14:18-0500Heart rate86 /min Oziel Cadena MD Work Phone: [facility] SpringfieldQoukywpwec54-63-6348 14:18-0500Systolic blood xakgqtwe596 mm[Hg]Oziel Cadena MD Work Phone: [facility] SpringfieldLwimhuyayr19-17-0040 08:56-0500Body xkjmru084.7 cmDoretha Harris MD Work Phone: [facility]01-13-2025 08:56-0500 Body mass index (BMI) [Ratio]27.37 kg/c0DqywzqmDoretha Harris MD Work Phone: 1(364)[address] [place], [place] 2483601-13-2025 08:56-0500 Body kaxipm22.65 kgDoretha Harris MD Work Phone: 1(377)[address] [place], [place] 2483601-13-2025 08:56-0500 Diastolic blood duwbytlm56 mm[Hg]Doretha Harris MD Work Phone: 1(136)[address] [place], [place] 2483601-13-2025 08:56-0500 Heart rate75 /minDoretha Harris MD Work Phone: 1(956)[address] [place], [place] 2483601-13-2025 08:56-0500 Systolic blood uhrzepmx709 mm[Hg]Doretha Harris MD Work Phone: 1(267)[address] [place], [place] 2483612-04-2024 14:04-0500 Body rghnam174.7 cmOziel Cadena MD Work Phone: 1(468)[address] [place], [place] 0254012-04-2024 14:04-0500Body mass index (BMI) [Ratio]26.46 kg/q2TixnufwOziel Cadena MD Work Phone: 1(041)[address] [place], [place] 0254012-04-2024 14:04-0500Body ypubnj78.93 kgOziel Cadena MD Work Phone: 1(951)[address] [place], [place] 0254012-04-2024 14:04-0500Diastolic blood jjjlcbto75 mm[Hg]Oziel Cadena MD Work Phone: 1(656)[address] [place], [place] 0254012-04-2024 14:04-0500Systolic blood mm[Hg]Oziel Cadena MD Work Phone: 1(270)[address] [place], [place] 0254011-11-2024 09:48-0500Body utjzmr327.72 cmKing[facility]11-11-2024 09:48-0500Body mass index (BMI) [Ratio]27 kg/r4KracwhfiaKing'S Daughters [facility] Center [facility]11-11-2024 09:48-0500Body weight 80.73 kgKing'S Daughters [facility] [place]11-11-2024 09:48-0500Diastolic blood sncexgnx42 mm[Hg][facility]11-11-2024 09:48-0500Heart rate61 /[facility]11-11-2024 09:48-0500Respiratory rate18 /[facility]11-11-2024 09:48-3870YfW5% (BldA) [Mass fraction]96 %[facility]11-11-2024 09:48-0500 Systolic blood mm[Hg][facility]10-24-2024 12:11-0400Body nypylyqvshk75.1 [degF]Doretha Harris MD Work Phone: 1(463)[address]10-24-2024 12:11-0400 Diastolic blood rlufmsyn35 mm[Hg]Doretha Harris MD Work Phone: 1(828)[address] [place], [place] 8023010-24-2024 12:11-0400 Heart rate82 /Luanne Harris MD Work Phone: 1216)[address]10-24-2024 12:11-0400 Respiratory rate17 /Luanne Harris MD Work Phone: 1216)[address]10-24-2024 12:11-0400 Systolic blood aoapdfgs032 mm[Hg]Doretha Harris MD Work Phone: 1216)[address]10-24-2024 09:20-0400 SaO2% (BldA) [Mass fraction]93 %Doretha Harris MD Work Phone: 1216)291-[address] [place], [place] 6403010-23-2024 15:07-0400 Body ljlzwguqdam90Flqoxki Zhou MD Work Phone: 1216)[address]10-23-2024 15:07-0400 SaO2% (BldA) [Mass fraction]100 %Doretha Harris MD Work Phone: 1(441)[address]10-23-2024 14:47-0400 Body bzclyssyrgu35.[address] Charles HospitalComment on above:Performed By: #### [id number] #### TITUS Mercado ([id number]) [facility] ([facility]) [id number] [place], [place] [address]10-23-2024 14:47-0619UoA0% (BldA) [Mass fraction]100 %[address]IM[address] [facility] HospitalComment on above:Performed By: #### [id number] #### TITUS Mercado ([id number]) [facility] ([facility]) [address] [place] [id number] 12:11-0400Body aeztyh122.7 cmDoretha Harris MD Work Phone: 1(827)[address]10-23-2024 12:11-0400 Body mass index (BMI) [Ratio]27.12 kg/h1QiaphlrDoretha Harris MD Work Phone: 1(730)[address]10-23-2024 12:11-0400 Body xxrysx12.9 kgDoretha Harris MD Work Phone: 1(513)[address]10-15-2024 10:47-0400 Body fwkvpe093.72 cmKing[facility]10-15-2024 10:47-0400Body mass index (BMI) [Ratio]27.2 kg/k2JincmtskkKing'S Daughters [facility]10-15-2024 10:47-0400Body yllgue14.19 kgKing'S Daughters [facility]10-15-2024 10:47-0400Diastolic blood ohjoghrq22 mm[Hg][facility] 04-01-2024 10:47-0400Heart rate50 /[facility] 04-01-2024 10:47-0400Respiratory rate16 /[facility] 04-01-2024 10:47-1106FcA2% (BldA) [Mass fraction]99 %[facility]10-15-2024 10:47-0400Systolic blood qodidrfo401 mm[Hg][facility]08-15-2024 10:240400Body ucledn384.72 cmKing'S Daughters [facility]08-15-2024 10:24-0400Body mass index (BMI) [Ratio]27.3 kg/m2 [facility]08-15-2024 10:24-0400Body .64 kg [facility]08-15-2024 10:24-0400Diastolic blood rcxvilny92 mm[Hg][facility]08-15-2024 10:24-0400Heart rate75 /min [facility]08-15-2024 10:24-0400Respiratory rate18 /min [facility]08-15-2024 10:24-0104CdY0% (BldA) [Mass fraction]98 %[facility]08-15-2024 10:24-0400Systolic blood ywnqxsaf490 mm[Hg][facility]07-18-2024 13:36-0400 Body ieybjj769.7 cmDoretha Harris MD Work Phone: [phone])697-[address] [place], [place] [address]7-18-2024 13:36-0400 Body mass index (BMI) [Ratio]27.43 kg/c3XppavphDoretha Harris MD Work Phone: 1(682)341-[address] [place], [place] 2301507-18-2024 13:36-0400 Body mvkoss19.83 kgDoretha Harris MD Work Phone: [facility]07-18-2024 13:36-0400 Diastolic blood kpoffryw06 mm[Hg]Doretha Harris MD Work Phone: 1(783)536-[address] [place], [place] 2301507-18-2024 13:36-0400 Heart rate80 /minDoretha Harris MD Work Phone: 1(137)539-[address] [place], [place] 2301507-18-2024 13:36-0400 Systolic blood mm[Hg]Doretha Harris MD Work Phone: 1(080)167-[address] [place], [place] 2301506-27-2024 10:00-0400 Body mass index (BMI) [Ratio]27.1 kg/w6VapfzjiHelder Jack MD Work Phone: [facility]06-27-2024 10:00-0400 Body jzqmdtzrhsy40.5 [degF]Helder Jack MD Work Phone: [facility]06-27-2024 10:00-0400 Body yvexfv42.83 Mackenzie Jack MD Work Phone: [facility]06-27-2024 10:00-0400 Diastolic blood rwolxzlu99 mm[Hg]Helder Jack MD Work Phone: [facility]06-27-2024 10:00-0400 Heart rate92 /Rachel Jack MD Work Phone: [facility]06-27-2024 10:00-0400 Respiratory rate17 /Rachel Jack MD Work Phone: [facility]06-27-2024 10:00-0400 SaO2% (BldA) [Mass fraction]96 %Helder Jack MD Work Phone: [facility]06-27-2024 10:00-0400 Systolic blood pljkttci565 mm[Hg]Helder Jack MD Work Phone: [facility]06-26-2024 13:08-0400 Body wztoss614.7 cmRyan Milks PA-C Work Phone: [facility]06-26-2024 13:08-0400 Body mass index (BMI) [Ratio]26.91 kg/m2Ryan Milks PA-C Work Phone: [phone]06-26-2024 13:08-0400 Body qikaho13.29 kgRyan Milks PA-C Work Phone: [phone]06-26-2024 13:08-0400 Diastolic blood qqrzvteo65 mm[Hg]Solomon Milks PA-C Work Phone: [facility]06-26-2024 13:08-0400 Heart rate91 /Jarod Milks PA-C Work Phone: [facility]06-26-2024 13:08-0400 Systolic blood kkssmabk359 mm[Hg]Solomon Milks PA-C Work Phone: [facility]06-17-2024 10:51-0400 Body obanrh899.72 cmDO Griselda Kuns Work Phone: [facility]06-17-2024 10:51-0400 Body mass index (BMI) [Ratio]26.1 kg/m2DO Griselda Kuns Work Phone: [facility]06-17-2024 10:51-0400 Body .01 kgDO Griselda Kuns Work Phone: [phone] [place], [place] 7301906-17-2024 10:51-0400 Diastolic blood snkokkwe09 mm[Hg]DO Griselda Kuns Work Phone: [facility]06-17-2024 10:51-0400 Heart rate97 /minDO Griselda Kuns Work Phone: [facility]06-17-2024 10:51-0400 Respiratory rate18 /minDO Griselda Kuns Work Phone: [facility]06-17-2024 10:51-0400 SaO2% (BldA) [Mass fraction]96 %DO Griselda Kuns Work Phone: [facility]06-17-2024 10:51-0400 Systolic blood tysumdpa044 mm[Hg]DO Griselda Kuns Work Phone: [facility]05-17-2024 09:49-0400 Body .6 cmVcourt Cole MD Work Phone: [facility]05-17-2024 09:49-0400Body mass index (BMI) [Ratio]27.38 kg/w0MaagdRacquel Cole MD Work Phone: [facility]05-17-2024 09:49-0400Body temperature 97.7 [degF]Racquel Cole MD Work Phone: [facility]05-17-2024 09:49-0400Body omutkq59.7 kgRacquel Cole MD Work Phone: [facility]05-17-2024 09:49-0400Diastolic blood khzeysdt51 mm[Hg]Racquel Cole MD Work Phone: [facility]05-17-2024 09:49-0400Heart rate72 /min Racquel Cole MD Work Phone: [facility]05-17-2024 09:49-0400Respiratory rate 16 /minRacquel Cole MD Work Phone: [facility]05-17-2024 09:49-1163DqG2% (BldA) [Mass fraction]99 %Racquel Cole MD Work Phone: [facility]05-17-2024 09:49-0400Systolic blood rlnfucxa161 mm[Hg]Racquel Cole MD Work Phone: [facility]05-13-2024 10:32-0400Body oinimx904.72 cmDO Griselda Hastings Work Phone: [facility]05-13-2024 10:32-0400 Body mass index (BMI) [Ratio]26.6 kg/m2DO Griselda Hastings Work Phone: [facility]05-13-2024 10:32-0400 Body zfepbp42.37 kgDO Griselda Hastings Work Phone: [facility]05-13-2024 10:32-0400 Diastolic blood buajjiyf00 mm[Hg]DO Griselda Hastings Work Phone: [facility]05-13-2024 10:32-0400 Heart rate71 /minDO Griselda Kuns Work Phone: [facility]05-13-2024 10:32-0400 Respiratory rate16 /minDO Griselda Kuns Work Phone: [facility]05-13-2024 10:32-0400 SaO2% (BldA) [Mass fraction]98 %DO Griselda Kuns Work Phone: [facility]05-13-2024 10:32-0400 Systolic blood mm[Hg]DO Griselda Kuns Work Phone: [facility]05-02-2024 09:02-0400 Diastolic blood azamhhmg88 mm[Hg]DO Griselda Kuns Work Phone: [facility]05-02-2024 09:02-0400 Systolic blood goodgqzo371 mm[Hg]DO Griselda Kuns Work Phone: [facility]05-02-2024 08:58-0400 Body yilpyb583.72 cmDO Griselda Kuns Work Phone: [facility]05-02-2024 08:58-0400 Body mass index (BMI) [Ratio]26.6 kg/m2DO Griselda Kuns Work Phone: [facility]05-02-2024 08:58-0400 Body scozll10.37 kgDO Griselda Kuns Work Phone: [facility]05-02-2024 08:58-0400 Heart rate57 /minDO Griselda Kuns Work Phone: [facility]05-02-2024 08:58-0400 Respiratory rate18 /minDO Griselda Kuns Work Phone: [facility]05-02-2024 08:58-0400 SaO2% (BldA) [Mass fraction]98 %DO Griselda Kuns Work Phone: [facility]04-19-2024 09:37-0400 Body .2 cmHelder Jack MD Work Phone: [facility]04-19-2024 09:37-0400 Body mass index (BMI) [Ratio]26.25 kg/f8JwwdpdyHelder Jack MD Work Phone: [phone]04-19-2024 09:37-0400 Body dofzlqfvajn72.3 [degF]Helder Jack MD Work Phone: [phone] [place], [place] 3867304-19-2024 09:37-0400 Body dqioty51.84 kgHelder Jack MD Work Phone: [phone] [place], [place] 3867304-19-2024 09:37-0400 Diastolic blood hfruuicp12 mm[Hg]Helder Jack MD Work Phone: [phone] [place], [place] 3867304-19-2024 09:37-0400 Heart rate81 /Rachel Jack MD Work Phone: [facility]04-19-2024 09:37-0400 Respiratory rate16 /Rachel Jack MD Work Phone: [phone])366-[address] [place], [place] 3867304-19-2024 09:37-0400 SaO2% (BldA) [Mass fraction]99 %Helder Jack MD Work Phone: [phone])776-[address] [place], [place] 9917104-19-2024 09:37-0400 Systolic blood jxozgxic877 mm[Hg]Helder Jack MD Work Phone: [facility]03-20-2024 13:44-0400 Diastolic blood vlxgjorj77 mm[Hg]DO Griselda Kuns Work Phone: [facility]03-20-2024 13:44-0400 Systolic blood hrqxelhw758 mm[Hg]DO Griselda Kuns Work Phone: [facility]03-20-2024 13:41-0400 Body bofzyh149.72 cmDO Griselda Kuns Work Phone: [facility]03-20-2024 13:41-0400 Body mass index (BMI) [Ratio]27.8 kg/m2DO Griselda [employer] Work Phone: [facility]03-20-2024 13:41-0400 Body kgDO Griselda Andreas Work Phone: [facility]03-20-2024 13:41-0400 Heart rate66 /minDO Griselda Kuns Work Phone: [address] [place], [place] 7301903-20-2024 13:41-0400 Respiratory rate18 /minDO Griselda Kuns Work Phone: [address] [place], [place] 7301903-20-2024 13:41-0400 SaO2% (BldA) [Mass fraction]99 %DO Griselda Hastings Work Phone: [facility]03-20-2024 11:58-0400 Body vgvqco249.72 cmDO Griselda [employer] Work Phone: [facility]03-20-2024 11:58-0400 Body mass index (BMI) [Ratio]27.3 kg/m2DO Griselda Andreas Work Phone: [facility]03-20-2024 11:58-0400 Body rlbybesogrl12.8 [degF]DO Griseldakeith Mendezs Work Phone: [facility]03-20-2024 11:58-0400 Body oythsm08.64 kgDO Griselda Kuns Work Phone: [facility]03-20-2024 11:58-0400 Diastolic blood ugthxmnk59 mm[Hg]DO Griselda [employer] Work Phone: [facility]03-20-2024 11:58-0400 Heart rate71 /minDO Griselda Kuns Work Phone: [facility]03-20-2024 11:58-0400 SaO2% (BldA) [Mass fraction]96 %DO Griselda Kuns Work Phone: [facility]03-20-2024 11:58-0400 Systolic blood trtefdnp362 mm[Hg]DO Griselda Kuns Work Phone: [facility]02-28-2024 15:41-0500 Body ndzsju008.72 cmDO Griselda Kuns Work Phone: [facility]02-28-2024 15:41-0500 Body mass index (BMI) [Ratio]28.1 kg/m2DO Griselda Kuns Work Phone: [facility]02-28-2024 15:41-0500 Body cusxhu02.08 kgDO Griselda Kuns Work Phone: [facility]02-28-2024 15:41-0500 Diastolic blood wfabbiod51 mm[Hg]DO Griselda Kuns Work Phone: [facility]02-28-2024 15:41-0500 Heart rate62 /minDO Griselda Kuns Work Phone: [facility]02-28-2024 15:41-0500 Respiratory rate18 /minDO Griselda Kuns Work Phone: [facility]02-28-2024 15:41-0500 SaO2% (BldA) [Mass fraction]99 %DO Griselda Kuns Work Phone: [facility]02-28-2024 15:41-0500 Systolic blood tnbxozbi198 mm[Hg]DO Griselda Kuns Work Phone: [facility]02-15-2024 13:11-0500 Body ogqtoi338.72 cmDO Griselda Kuns Work Phone: [facility]02-15-2024 13:11-0500 Body mass index (BMI) [Ratio]27.9 kg/m2DO Griselda Kuns Work Phone: [facility]02-15-2024 13:11-0500 Body .46 kgDO Griselda Kuns Work Phone: [facility]02-15-2024 13:11-0500 Diastolic blood mm[Hg]DO Griselda Kuns Work Phone: [facility]02-15-2024 13:11-0500 Heart rate68 /minDO Griselda Kuns Work Phone: [facility]02-15-2024 13:11-0500 Respiratory rate16 /minDO Griselda Kuns Work Phone: [facility]02-15-2024 13:11-0500 SaO2% (BldA) [Mass fraction]97 %DO Griselda Kuns Work Phone: [facility]02-15-2024 13:11-0500 Systolic blood mghakdja317 mm[Hg]DO Griselda Kuns Work Phone: [facility]01-15-2024 09:30-0500 Body sbiizu267.72 cmGriselda Hastings Other [facility]01-15-2024 09:30-0500 Body mass index (BMI) [Ratio]28.28 kg/p5Rvtwa Andreas Other [employer] [facility] Other [id number] 09:30-0500Body .37 kgBrett Andreas Other [facility] Other 01-15-2024 09:30-0500Body pxckoa20.36 kgDO Griselda Kuns Work Phone: [facility]01-15-2024 09:30-0500 Diastolic blood pksxqomx38 mm[Hg]Griselda Andreas Other [facility]01-15-2024 09:30-0500 Respiratory rate16 /minBrett Andreas Other [employer] [facility] Other 01-15-2024 09:30-1151FcC9% (BldA) [Mass fraction]97 % Griseldakeith Mendezs Other [facility] Other 01-15-2024 09:30-0500Systolic blood mfungxls380 mm[Hg] Griselda Andreas Other [facility]12-14-2023 13:45-0500 Body fykove244.72 cmBrekeith Andrearoge Other [facility]12-14-2023 13:45-0500 Body mass index (BMI) [Ratio]27.37 kg/j5EvrpkGriselda Hastings Other [facility] Other 12-14-2023 13:45-0500Body .65 kgBrett Darlign Other [facility] Other 12-14-2023 13:45-0500Body mlpmvi13.64 kgDO Griselda Andreas Work Phone: [facility]12-14-2023 13:45-0500 Diastolic blood qijobhzk74 mm[Hg]Griseldakeith Mendezs Other [facility]12-14-2023 13:45-0500 Respiratory rate18 /minBrett Andreas Other [facility] Other 12-14-2023 13:45-7465RsF5% (BldA) [Mass fraction]98 % Griselda Andreas Other [facility] Other 12-14-2023 13:45-0500Systolic blood gnqewdgg092 mm[Hg] Griselda Kuns Other [facility]12-13-2023 11:15-0500 Body ytmjdr914.72 cmTlbhavanaadonay Harvey Other [facility]12-13-2023 11:15-0500 Body mass index (BMI) [Ratio]27.52 kg/f7WlpwlpaRuddy Harvey Other [employer] Other 12-13-2023 11:15-0500Body ghekjamdzam46.8 [degF] Ruddy Ovalledoris Other [employer] Other 12-13-2023 11:15-0500Body gfyqps39.1 kgMakeithbhavanaadonay Harvey Other [facility]12-13-2023 11:15-0500 SaO2% (BldA) [Mass fraction]98 %Ruddy Ovalledoris Other [facility] Other 11-28-2023 13:20-0500Body vuyojr171.72 cmLinda Kamla Other [facility]11-28-2023 13:20-0500 Body mass index (BMI) [Ratio]27.52 kg/a0Sldmw Kamla Other [employer] Other [id number] 13:20-0500Body vyyuss63.1 kgLinda Kamla Other [facility]11-28-2023 13:20-0500 Diastolic blood ywybcclo00 mm[Hg]Lilliam Kamla Other [facility]11-28-2023 13:20-0500 Respiratory rate18 /minLinda Kamla Other [employer] Other 11-28-2023 13:20-1295GpF6% (BldA) [Mass fraction]98 % Lilliam Cason Other [facility] Other 11-28-2023 13:20-0500Systolic blood zfpgxrte529 mm[Hg] Lilliam Cason Other [facility]11-20-2023 13:16-0500 Diastolic blood cdcueugj45 mm[Hg]DO Griselda Kuns Work Phone: [facility]11-20-2023 13:16-0500 Heart rate75 /minDO Griselda Kuns Work Phone: [facility]11-20-2023 13:16-0500 Respiratory rate16 /minDO Griselda Kuns Work Phone: [facility]11-20-2023 13:16-0500 SaO2% (BldA) [Mass fraction]96 %DO Griselda Kuns Work Phone: [facility]11-20-2023 13:16-0500 Systolic blood smgstsac477 mm[Hg]DO Griselda Kuns Work Phone: [facility]11-20-2023 10:30-0500 Inhaled oxygen flow rate3 L/minDO Griselda Kuns Work Phone: [facility]11-20-2023 08:29-0500 Body zrlfgo495.72 cmDO Griselda Kuns Work Phone: [facility]11-20-2023 08:29-0500 Body ofcrka01.37 kgDO Griselda Kuns Work Phone: [facility]11-16-2023 09:15-0500 Body pbwvin541.72 cmRuddy Harvey Other [facility] [employer] Other 11-16-2023 09:15-0500Body mass index (BMI) [Ratio] 27.06 kg/s4UqfzmgmRuddy Harvey Other [facility] 11-16-2023 09:15-0500Body fcvsvpnydqd49.8 [degF] Ruddy Wes [facility] 11-16-2023 09:15-0500Body fgzoxp37.74 kgMatthaylie Wes Other [facility] 11-16-2023 09:15-0500Diastolic blood idnxfrox07 mm[Hg] Ruddy Harvey [facility] 11-16-2023 09:15-9209BpQ2% (BldA) [Mass fraction]97 % Ruddy [facility] 11-16-2023 09:15-0500Systolic blood hdnidmch847 mm[Hg] Ruddy Wes Other [employer] Other 11-14-2023 10:30-0500Body xlmeyg464.72 cmGriselda Hastings Other [employer] Other 11-14-2023 10:30-0500Body mass index (BMI) [Ratio] 27.06 kg/h3YprieGriselda Hastings Other [employer] Other 11-14-2023 10:30-0500Body fkwjpa63.74 kgGriselda Hastings Other [employer] Other 11-14-2023 10:30-0500Diastolic blood ahbsikuf48 mm[Hg] Griselda Andreas Other [employer] Other 11-14-2023 10:30-0500Respiratory rate18 /minBrekeith Hastings Other [employer] Other 11-14-2023 10:30-5794WhX6% (BldA) [Mass fraction]96 % Griseldakeith Mendezs Other [employer] Other 11-14-2023 10:30-0500Systolic blood mm[Hg] Griselda Andreas Other [employer] Other 10-25-2023 10:40-0400Body oypgfq383.72 cmLinda Kamla Other [employer] Other 10-25-2023 10:40-0400Body mass index (BMI) [Ratio] 26.67 kg/u2Sthim Kamla Other [employer] Other 10-25-2023 10:40-0400Body abrfci46.56 kgLinda Kamla Other [employer] Other 10-25-2023 10:40-0400Diastolic blood wmlbfqyl71 mm[Hg] Lilliam Kamla Other [employer] Other 10-25-2023 10:40-6343XfQ6% (BldA) [Mass fraction]96 % Lilliam Kamla Other [employer] Other 10-25-2023 10:40-0400Systolic blood ixfpopoz109 mm[Hg] Lilliam Cason Other [facility] Other [id number] 02:42-0400Diastolic blood xrralhce57 mm[Hg] DO Griselda [employer] Work Phone: [facility]10-04-2023 02:42-0400 Heart rate72 /minDO Griselda [employer] Work Phone: [facility]10-04-2023 02:42-0400 Respiratory rate16 /minDO Griselda Kuns Work Phone: [facility]10-04-2023 02:42-0400 SaO2% (BldA) [Mass fraction]97 %DO Griselda [employer] Work Phone: [facility]10-04-2023 02:42-0400 Systolic blood ytrdmyyj557 mm[Hg]DO Griselda [employer] Work Phone: [facility]10-04-2023 00:12-0400 Body icazlk674.72 cmDO Griselda [employer] Work Phone: [facility]10-04-2023 00:12-0400 Body ttdivdcvejy71 [degF]DO Griselda [employer] Work Phone: [facility]10-04-2023 00:12-0400 Body zzjyzk62.37 kgDO Griselda [employer] Work Phone: [facility]09-28-2023 10:30-0400 Body ipekyk447.72 cmBrekeith Liepin.com Other [facility] Other 09-28-2023 10:30-0400Body mass index (BMI) [Ratio] 26.76 kg/s8Dwvxt [employer] Other [facility] Other 09-28-2023 10:30-0400Body ichytz85.83 kgBrett Andreas Other [employer] Other 09-28-2023 10:30-0400Diastolic blood xmjehqry79 mm[Hg] Griselda Andreas Other [employer] Other 09-28-2023 10:30-0400Respiratory rate16 /minBrett Kuns Other [employer] Other 09-28-2023 10:30-7046NaY3% (BldA) [Mass fraction]97 % Griseldakeith Mendezs Other [employer] Other 09-28-2023 10:30-0400Systolic blood fdicwdfh550 mm[Hg] Griselda Andreas Other [employer] Other 09-21-2023 10:00-0400Body njamld169.72 cmBrett Darling Other [employer] Other 09-21-2023 10:00-0400Body mass index (BMI) [Ratio] 27.18 kg/c4Inanv Kuns Other [employer] Other 09-21-2023 10:00-0400Body bwbski02.1 kgBrett Andreas Other [employer] Other 09-21-2023 10:00-0400Diastolic blood xluvwcdv68 mm[Hg] Griselda Kuns Other [employer] Other 09-21-2023 10:00-0400Respiratory rate16 /minBrett Kuns Other [employer] Other 09-21-2023 10:00-5408TjQ8% (BldA) [Mass fraction]96 % Griselda Andreas Other [facility] Other 09-21-2023 10:00-0400Systolic blood emqhifpu345 mm[Hg] Griselda Kuns Other [facility] Other 09-11-2023 14:13-0400Body nnoldt504.72 cmDO Griselda Kuns Work Phone: [facility]09-11-2023 14:13-0400 Body hsflolmhvzg45 [degF]DO Griselda Kuns Work Phone: [facility]09-11-2023 14:13-0400 Body soguix18.6 kgDO Griselda Kuns Work Phone: [facility]09-11-2023 14:13-0400 Diastolic blood vdribvbv21 mm[Hg]DO Griselda Kuns Work Phone: [facility]09-11-2023 14:13-0400 Heart rate56 /minDO Griselda Kuns Work Phone: [facility]09-11-2023 14:13-0400 Respiratory rate18 /minDO Griselda Kuns Work Phone: [facility]09-11-2023 14:13-0400 SaO2% (BldA) [Mass fraction]96 %DO Griselda Kuns Work Phone: [facility]09-11-2023 14:13-0400 Systolic blood bemhxakg518 mm[Hg]DO Griselda Kuns Work Phone: [facility]06-20-2023 10:15-0400 Body uwtvem905.72 cmBrett [employer] Other [facility] Other 06-20-2023 10:15-0400Body mass index (BMI) [Ratio] 25.85 kg/a1CidtpGriselda Hastings Other [employer] Other 06-20-2023 10:15-0400Body penijm31.11 kgBrekeith Hastings Other [employer] Other 06-20-2023 10:15-0400Diastolic blood kfaefikk22 mm[Hg] Griselda Hastings Other [employer] Other 06-20-2023 10:15-0400Respiratory rate16 /minGriselda Hastings Other [facility] Other 06-20-2023 10:15-3839BnN2% (BldA) [Mass fraction]96 % Griselda Hastings Other [employer] Other 06-20-2023 10:15-0400Systolic blood hhucsmdy426 mm[Hg] Griselda Hastings Other [employer] Other 03-29-2023 10:57-0400Body gryvkn398.6 cmScandie SAAVEDRA-C Work Phone: [facility]03-29-2023 10:57-0400Body temperature 97.39 [degF]Kelly SAAVEDRA-C Work Phone: [facility]03-29-2023 10:57-0400Body kbpyyq11.34 kgSudisha Perez PA-C Work Phone: [facility]03-29-2023 10:57-0400Diastolic blood ccuexaoa29 mm[Hg]Kelly SAAVEDRA-C Work Phone: [facility]03-29-2023 10:57-0400Heart rate70 /min Kelly Cervantesxuannori PA-C Work Phone: [facility]03-29-2023 10:57-0400Respiratory rate 18 /minScandie Cervantescory PA-C Work Phone: [facility]03-29-2023 10:57-1726MoG2% (BldA) [Mass fraction]100 %Kelly Perez PA-C Work Phone: [facility]03-29-2023 10:57-0400Systolic blood mm[Hg]Kelly Perez PA-C Work Phone: [facility]03-16-2023 11:15-0400Body kzartb117.72 cmKatykeith Hastings Other [employer] Other [id number] 11:15-0400Body mass index (BMI) [Ratio] 26.79 kg/x0Xmpvj Kuns Other [employer] Other 03-16-2023 11:15-0400Body bsooyw33.92 kgKatykeith Hastings Other [employer] Other 03-16-2023 11:15-0400Diastolic blood mm[Hg] Griselda Hastings Other [employer] Other 03-16-2023 11:15-0400Respiratory rate16 /minBrekeith MendezBloom Health Other [employer] Other 03-16-2023 11:15-8188StP2% (BldA) [Mass fraction]98 % Griselda Andrearoge Other [employer] Other 03-16-2023 11:15-0400Systolic blood kmtvdvaa544 mm[Hg] Griselda Kuns Other [employer] Other 02-14-2023 10:30-0500Body ayltyb115.72 cmBrett Kuns Other [employer] Other 02-14-2023 10:30-0500Body mass index (BMI) [Ratio] 27.27 kg/o4Gvyhp Kuns Other [employer] Other 02-14-2023 10:30-0500Body ueirzt32.38 kgBrett Kuns Other [employer] Other 02-14-2023 10:30-0500Diastolic blood yulgmxqx23 mm[Hg] Griselda Kuns Other [employer] Other 02-14-2023 10:30-0500Respiratory rate16 /minBrett Kuns Other [employer] Other 02-14-2023 10:30-7271SuP4% (BldA) [Mass fraction]99 % Griselda Kuns Other [employer] Other 02-14-2023 10:30-0500Systolic blood orpqouri803 mm[Hg] Griselda Kuns Other [employer] Other 01-30-2023 09:45-0500Diastolic blood smoyeysh14 mm[Hg] DO Griselda Kuns Work Phone: [facility]01-30-2023 09:45-0500 Heart rate69 /minDO Griselda Kuns Work Phone: [facility]01-30-2023 09:45-0500 Respiratory rate16 /minDO Griselda [employer] Work Phone: [facility]01-30-2023 09:45-0500 SaO2% (BldA) [Mass fraction]99 %DO Griselda [employer] Work Phone: [facility]01-30-2023 09:45-0500 Systolic blood brjokxyw294 mm[Hg]DO Grsielda [employer] Work Phone: [facility]01-30-2023 07:58-0500 Body ggfumc354.72 cmDO Griselda [employer] Work Phone: [facility]01-30-2023 07:58-0500 Body honnps78.37 kgDO Griselda [employer] Work Phone: [facility]01-11-2023 10:20-0500 Body hjsquj759.72 cmDeborLoopt Blades Other [employer] Other 01-11-2023 10:20-0500Body mass index (BMI) [Ratio] 26.67 kg/p2Gusilzv Blades Other [employer] Other 01-11-2023 10:20-0500Body .56 kgDeborLoopt Blades Other [employer] Other 01-11-2023 10:20-0500Diastolic blood xjziussh69 mm[Hg] Trish Blades Other [employer] Other 01-11-2023 10:20-0500Systolic blood mm[Hg] Trish Blades Other [employer] Other 12-09-2022 13:30-0500Body ojyqlp245.72 cmGriselda Hastings Other [employer] Other 12-09-2022 13:30-0500Body mass index (BMI) [Ratio]26.7 kg/y7WjqtjGriselda Hastings Other [employer] [facility] Other 12-09-2022 13:30-0500Body .65 kgGriselda Hastings Other [facility] Other 12-09-2022 13:30-0500Diastolic blood lsgfmymo42 mm[Hg] Griselda Mendezs Other [facility] Other 12-09-2022 13:30-0500Respiratory rate18 /minGriselda Hastings Other [facility] [facility] Other 12-09-2022 13:30-1366DbK5% (BldA) [Mass fraction]98 % Griselda Hastings Other [place] [facility] Other 12-09-2022 13:30-0500Systolic blood eizgwhpr353 mm[Hg] Griseldakeith Mendezs Other [place] [facility] Other 10-31-2022 00:30-0400Diastolic blood ikvrshmy93 mm[Hg] DO Griselda Kuns Work Phone: [facility] [place]10-31-2022 00:30-0400 Heart rate78 /minDO Griselda Kuns Work Phone: [facility] [place]10-31-2022 00:30-0400 Respiratory rate16 /minDO Griselda Kuns Work Phone: [facility] [place]10-31-2022 00:30-0400 SaO2% (BldA) [Mass fraction]97 %DO Griselda Kuns Work Phone: 1(390)684-[address] [place], [place] [address]10-31-2022 00:30-0400 Systolic blood jtqithzq137 mm[Hg]DO Griselda Kuns Work Phone: [phone]10-30-2022 19:45-0400 Body .72 cmDO Griselda Kuns Work Phone: [phone]10-30-2022 19:45-0400 Body ubjpeequkri56.1 [degF]DO Griselda Kuns Work Phone: [phone]10-30-2022 19:45-0400 Body aixylt12 kgDO Griselda Kuns Work Phone: [phone] [place], [place] [address]10-20-2022 16:31-0400 Body .72 cmDO Griselda Kuns Work Phone: [phone]10-20-2022 16:31-0400 Body qajluefrzzd78.1 [degF]DO Griselda Kuns Work Phone: [phone])8-[address] [place], [place] [address]10-20-2022 16:31-0400 Body .37 kgDO Griselda Kuns Work Phone: [phone])[address]10-20-2022 16:31-0400 Diastolic blood uttsfgcl542 mm[Hg]DO Griselda Kuns Work Phone: [phone] [place], [place] [address]10-20-2022 16:31-0400 Heart rate95 /minDO Griselda Kuns Work Phone: [phone])042-[address] [place], [place] [address]10-20-2022 16:31-0400 Respiratory rate19 /minDO Griselda Kuns Work Phone: [phone] [place], [place] [address]10-20-2022 16:31-0400 SaO2% (BldA) [Mass fraction]97 %DO Griselda Kuns Work Phone: 1([phone])924-[address] [place], [place] [address]10-20-2022 16:31-0400 Systolic blood zlciguzh129 mm[Hg]DO Griseldakeith Hastings Work Phone: [facility] [place]09-29-2022 13:30-0400 Body olzpro920.72 cmBrett Kuns Other [employer] Other 09-29-2022 13:30-0400Body mass index (BMI) [Ratio] 26.91 kg/h0Kusoy Kuns Other [employer] Other 09-29-2022 13:30-0400Body bhatpt97.29 kgBrett Kuns Other [employer] Other 09-29-2022 13:30-0400Diastolic blood gxuampfu24 mm[Hg] Griselda Andreas Other [employer] Other 09-29-2022 13:30-0400Respiratory rate16 /minBrett Darling Other [employer] Other 09-29-2022 13:30-5330MiI8% (BldA) [Mass fraction]97 % Griselda Andreas Other [employer] Other 09-29-2022 13:30-0400Systolic blood ucfyuwap879 mm[Hg] Griselda Kuns Other [employer] Other 08-15-2022 12:00-0400Body njokhw135.72 cmBrett Kuns Other [employer] Other 08-15-2022 12:00-0400Body mass index (BMI) [Ratio]26.3 kg/d3Zsefp Kuns Other [employer] Other 08-15-2022 12:00-0400Body lxnyrl15.47 kgBrett Darling Other [employer] Other 08-15-2022 12:00-0400Diastolic blood hxotlpox18 mm[Hg] Griselda Andreas Other [employer] Other 08-15-2022 12:00-0400Respiratory rate16 /minBrekeith Hastings Other [employer] Other 08-15-2022 12:00-2232YjE6% (BldA) [Mass fraction]99 % Griseldakeith Hastings Other [employer] Other 08-15-2022 12:00-0400Systolic blood vanoxdkx552 mm[Hg] Griselda Andreas Other [employer] Other 07-11-2022 11:00-0400Body gyewgc245.72 cmBrekeith Hastings Other [employer] Other 07-11-2022 11:00-0400Body mass index (BMI) [Ratio] 26.61 kg/l3Btvac Kuns Other [employer] Other 07-11-2022 11:00-0400Body uwdaan51.38 kgBrett Darling Other [employer] Other 07-11-2022 11:00-0400Diastolic blood jxrgtoja89 mm[Hg] Griselda Kuns Other [employer] Other 07-11-2022 11:00-0400Respiratory rate16 /minBrekeith Hastings Other [employer] Other 07-11-2022 11:00-3063ExZ8% (BldA) [Mass fraction]96 % Griseldakeith Hastings Other [employer] Other 07-11-2022 11:00-0400Systolic blood jjjppgyv400 mm[Hg] Griseldakeith Hastings Other [employer] Other 06-20-2022 10:15-0400Body .72 cmBrekeith Hastings Other [employer] Other 06-20-2022 10:15-0400Body mass index (BMI) [Ratio] 269.71 kg/s6Kxzbp Kunroge Other [employer] Other 06-20-2022 10:15-0400Body ultmvt247.69 kgBrekeith Hastings Other [employer] Other 06-20-2022 10:15-0400Diastolic blood vlfbothg15 mm[Hg] Griseldakeith Mendezs Other [employer] Other 06-20-2022 10:15-0400Respiratory rate18 /minBrekeith Hastings Other [employer] Other 06-20-2022 10:15-3934ZwS6% (BldA) [Mass fraction]99 % Griseldakeith Mendezs Other [employer] Other 06-20-2022 10:15-0400Systolic blood ahghyfbw861 mm[Hg] Griseldakeith Hastings Other [employer] [facility] Other 05-24-2022 11:15-0400Body famahi676.72 cmBrekeith Hastings Other [place] [facility] Other 05-24-2022 11:15-0400Body mass index (BMI) [Ratio] 27.06 kg/o0ZkxqvGriselda Hastings Other [place] [facility] Other 05-24-2022 11:15-0400Body eregwm83.74 kgGriselda Hastings Other [place] [facility] Other 05-24-2022 11:15-0400Diastolic blood qersxyoo90 mm[Hg] Griselda Mendezs Other [place] [facility] Other 05-24-2022 11:15-0400Respiratory rate16 /minBrekeith Hastings Other [place] [facility] Other 05-24-2022 11:15-4263IqI4% (BldA) [Mass fraction]97 % Griseldakeith Hastings Other [place] [facility] Other 05-24-2022 11:15-0400Systolic blood mm[Hg] [facility]akeith [facility] Other 05-19-2022 09:38-0400Body gmaxye928.51 cmGriselda Hastings Work Phone: [phone]-GsdeznhSelect [facility] Hospital Work Phone: 1(361) 968-215605-19-2022 09:38-0400Body mass index (BMI) [Ratio] 27.05 kg/b0Jeuqwkeith Hastings Work Phone: [phone]-IkongzqSelect Specialty Hospital Work Phone: [phone] 09:38-0400Body surface area Derived from formula1.91 f0KovgrGriselda Hastings Work Phone: [phone]-OwttochSelect Specialty Hospital Work Phone: 1([phone])[phone] 09:38-0400Body lvbinklpqfg16.2 [degF]Griselda Hastings Work Phone: VM-UkslreySelect Specialty Hospital Work Phone: 1([phone] 09:38-0400Body mfwagl95.65 kgGriselda Hastings Work Phone: JJ-[address] [place] [address] Work Phone: 1(216)[phone] 09:38-0400Diastolic blood yxdsnycj44 mm[Hg] Griselda Hastings Work Phone: JO-GuibrkdSelect Specialty Hospital Work Phone: 1([phone])[phone] 09:38-0400Heart rate63 /minGriselda Hastings Work Phone: ZP-BtuujgsSelect Specialty Hospital Work Phone: 1([phone])[phone] 09:38-0400Respiratory rate16 /minGriselda Hastings Work Phone: GM-HtibyhhSelect [facility] Hospital Work Phone: 1([phone])[phone] 09:38-9299JjG8% (BldA) [Mass fraction]99 % Griselda Hastings Work Phone: RV-ZlmecvnSelect Specialty Hospital Work Phone: [phone])[phone] 09:38-0400Systolic blood qdkviawa529 mm[Hg] Griselda Hastings Work Phone: GJ-TkrymxpSelect Specialty Hospital Work Phone: 1(216)525-295472-36346526-12-2238 09:38-51229 1Bnatalya Hastings Work Phone: 1(106) [phone]-YrppwmsSelect Specialty Hospital Work Phone: comment on above:CyicGzszq95-05-7431 13:30-0400Body .72 cmGriselda Hastings Other [employer] Other 05-17-2022 13:30-0400Body mass index (BMI) [Ratio] 26.61 kg/h2FgstoGriselda Hastings Other [employer] Other 05-17-2022 13:30-0400Body zgxcny69.38 kgGriselda Hastings Other [employer] Other 05-17-2022 13:30-0400Diastolic blood oxfwufmj97 mm[Hg] Griseldakeith Hastings Other [employer] Other 05-17-2022 13:30-0400Respiratory rate18 /minBrekeith Hastings Other [employer] Other 05-17-2022 13:30-7085KdA6% (BldA) [Mass fraction]99 % Griseldakeith Hastings Other [employer] Other 05-17-2022 13:30-0400Systolic blood msrlartw533 mm[Hg] Griseldakeith Hastings Other [employer] Other 05-09-2022 09:45-0400Body oeotfc422.72 cmDanisurekha Schneider Other [employer] Other 05-09-2022 09:45-0400Body mass index (BMI) [Ratio] 26.76 kg/u9Clwxsasurekha Alatorres Other [facility] Other 05-09-2022 09:45-0400Body casdyw04.83 kgDanancysurekha Schneider Other [place] [facility] Other 04-28-2022 09:50-0400Body bvania253 cmVcourt Cole MD Work Phone: [facility]04-28-2022 09:50-0400Body temperature 97.5 [degF]Racquel Cole MD Work Phone: [place] [address]-28-2022 09:50-0400Body hysjzi63.28 kgRacquel Cole MD Work Phone: [facility]04-28-2022 09:50-0400Diastolic blood fsioxgql98 mm[Hg]Racquel Cole MD Work Phone: [facility]04-28-2022 09:50-0400Heart rate70 /min Racquel Cole MD Work Phone: [place] [address]-28-2022 09:50-0400Respiratory rate 16 /minRacquel Cole MD Work Phone: [facility]04-28-2022 09:50-9295FwA3% (BldA) [Mass fraction]99 %Racquel Cole MD Work Phone: [facility]04-28-2022 09:50-0400Systolic blood guzznrpz152 mm[Hg]Racquel Cole MD Work Phone: [facility]04-04-2022 10:45-0400Body exiqoh217.72 cmGriselda Hastings Other [place] [facility] Other 04-04-2022 10:45-0400Body mass index (BMI) [Ratio] 26.15 kg/d5HychxGriselda Hastings Other [employer] Other 04-04-2022 10:45-0400Body ktslyr35.02 kgBrett Kuns Other [employer] Other 04-04-2022 10:45-0400Diastolic blood rhjgjgup49 mm[Hg] Griselda Kuns Other [employer] Other 04-04-2022 10:45-0400Respiratory rate18 /minBrett Kuns Other [employer] Other 04-04-2022 10:45-5681NmA5% (BldA) [Mass fraction]99 % Griselda Kuns Other [employer] Other 04-04-2022 10:45-0400Systolic blood xbjxchte580 mm[Hg] Griselda Kuns Other [employer] Other 01-13-2022 13:30-0500Body .72 cmBrett Kuns Other [employer] Other 10-28-2021 08:45-0400Body .72 cmBrett Kuns Other [employer] Other 10-28-2021 08:45-0400Body mass index (BMI) [Ratio] 25.85 kg/z5Qlqxo Kuns Other [employer] Other 10-28-2021 08:45-0400Body hzjzoq97.11 kgBrett Kuns Other [employer] Other 10-28-2021 08:45-0400Diastolic blood klldunmr13 mm[Hg] Griselda Hastings Other [facility] Other 10-28-2021 08:45-0400Respiratory rate16 /minGriselda Hastings Other [facility] Other 10-28-2021 08:45-8820ObD6% (BldA) [Mass fraction]99 % Griselda Hastings Other [facility] Other 10-28-2021 08:45-0400Systolic blood ltrlaads653 mm[Hg] Griselda Hastings [facility] Other Encounters Encounter DateEncounter TypeCare ProviderFacilityStart: 04-01-2025 End: 76-43-7765gtlvjzyapuJtjwr Kuns DO Work Phone: [facility] Work Phone: Start: 04-01-2025 End: 66-59-4697Hxuzahb encounter procedureGriselda Hastings DO-[facility] [place] Work Phone: Start: 03-30-2025 End: 07-45-3257wysblgaqrlUuysdzk Vytautas Giedraitis MDFacility:PM Jack Start: 03-24-2025 End: 79-38-7916nfovyzmvgiLLGLENRN [facility]: 03-18-2025 End: 30-82-9423Bpwxjz flowsMarshal Cadena MD Work Phone: [facility] NEUROLOGYStart: 03-18-2025 End: 44-82-4952Ldpcgcquintin Cadena MD Work Phone: [facility] NEUROLOGYStart: 03-18-2025 End: 10-68-0847qhnqglwlmhTUBVMDT W BAUERNot AvailableComment on above:Other nerve root and plexus disorders (Primary Dx); Acute pain of left shoulder; Acute pain of right shoulderStart: 02-26-2025 End: 43-29-1424Oggyfwr encounter procedureGriselda Hastings DO-[facility] Work Phone: Start: 02-26-2025 End: 49-58-7148qumudpjctsAbxuk Kuns DO Work Phone: [facility] Work Phone: Start: 07-90-1518Nfqmsft encounter procedureBrekeith Hastings DO Work Phone: [facility]: 02-19-2025 End: 31-75-5700wqgusvffdbHonmy Kuns DO Work Phone: [facility] Work Phone: Start: 02-19-2025 End: 99-64-5371Rdtoacy encounter procedureGriselda Hastings DO-[facility] [place] Work Phone: Start: 11-81-0593Jnn-patient / Non-visitMelsam Arias DO-[facility] Work Phone: Start: 02-13-2025 End: 66-12-8418jjnmfrtrmtEMYJTOHGBarnesville Hospitaltart: 02-09-2025 End: 58-24-6878iegmyozskiFittvem Vytautas Giedraitis MDFacility:[facility] [place] Start: 02-04-2025 End: 76-02-6610Zzuqvovi SupportOziel Cadena MD Work Phone: NO[facility] [place] NeurologyComment on above:Acute pain of right shoulder (Primary Dx); Nerve root and plexus disorder, unspecified; Acute pain of left shoulderStart: 02-04-2025 End: 39-05-0926Zifgpf flowsheetOziel Cadena MD Work Phone: [facility] NEUROLOGYStart: 02-04-2025 End: 47-19-6319Uatrkh Preet Cadena MD Work Phone: [facility] NEUROLOGYStart: 90-53-0446Vnb-patient / Non-visitAndrius Roxy NORRIS-[facility] Work Phone: Start: 01-26-2025 End: 94-75-0748qevlqfnwxnQzoqvpl Vytautas Roxy NORRISFacility:[facility] [place] Start: 01-12-2025 End: 17-17-3316ugiadpkegpKbdik Kuns DO Work Phone: [facility] Work Phone: Start: 01-12-2025 End: 80-19-2618Hbbagnz encounter Jeremias Mullins APRN-[facility] Work Phone: Start: 01-08-2025 End: 74-50-7173Xwbyab flowsheetDr. [facility] PA Work Phone: [facility] SWS DERMStart: 01-08-2025 End: 61-59-8119Omuqwr flowsheetDr. [facility] PA Work Phone: [facility] SWS DERMStart: 01-08-2025 End: 22-92-6389Xqkjaf outpatient visit 15 minutesRyAudrain Medical Center PA Work Phone: [facility] SWS DERMComment on above:Melanocytic nevus of trunk (Primary Dx); Seborrheic keratosis; Inflamed seborrheic keratosis; Actinic keratosis; Capillary angioma; History of SCC (squamous cell carcinoma) of skinStart: 01-08-2025 End: 93-56-8124wwkmzltmhsEDIPI NORTHEIMNot AvailableStart: 12-29-2024 End: 03-96-3282hcfzubnzarGJIEEKQ ZHOUNot AvailableStart: 12-24-2024 End: 29-55-1453Phcxdi Preet Cadena MD Work Phone: [facility] NEUROLOGYStart: 12-24-2024 End: 24-59-9224Hwicvz flowsMarshal Cadena MD Work Phone: [facility] BM NEUROLOGYStart: 12-24-2024 End: 54-94-3065Nkhvzcdh SupportOziel Cadena MD Work Phone: [facility] [place] NeurologyComment on above:Nerve root and plexus disorder, unspecified (Primary Dx); Acute pain of left shoulderStart: 2024 End: 45-86-0745Ypzgkxq encounter procedureBrett Kuns DO Work Phone: [facility] CtrStart: 2024 End: 10-18-0413yltfvvxsrgCjcxq Kuns DO Work Phone: [facility] Work Phone: Start: 11-19-2024 End: 89-47-2763ygawyggagzQbvbc Kuns DO Work Phone: [facility] Work Phone: Start: 11-19-2024 End: 42-13-9379Jotxucu encounter procedureBrett Kuns DO Work Phone: [facility] Work Phone: Start: 11-17-2024 End: 76-21-3072xhtwnlynfaKqpac Kuns DO Work Phone: [facility] Work Phone: Start: 11-17-2024 End: 64-64-8677Yjqfgfk encounter procedureBrett Kuns DO Work Phone: [facility] Work Phone: Start: 11-12-2024 End: 29-21-9635Sxqkcz Preet Cadena MD Work Phone: [facility] BM NEUROLOGYStart: 11-12-2024 End: 60-41-6973Uovbrlmagdalena Cadena MD Work Phone: [facility] BM NEUROLOGYStart: 11-12-2024 End: 67-74-1706Qmcrcnvq SupportOziel Cadena MD Work Phone: [facility] SWS NEURComment on above:Nerve root and plexus disorder, unspecified (Primary Dx); Acute pain of left shoulderStart: 11-07-2024 End: 80-63-0428hgvjyugywjMWNVC ABHYANKARFacility:[facility] Ohiotart: 31-78-0686Cxi-patient / Non-visitBrett Kuns DO Work Phone: [facility] Work Phone: Start: 11-05-2024 End: 47-97-9932Kigkcxzpg to same day surgery centerBrett Andreas DO Work Phone: [facility] Work Phone: Start: 11-05-2024 End: 30-68-4405rrusyinxnkAycy AsaadFacility:[facility] [place] Start: 11-03-2024 End: 34-42-2106Duztlkxka encounterRacquel Cole MD Work Phone: Hematology/OncologyComment on above:OrdersStart: 39-43-3788Qsz-patient / Non-visitBrett Kuns DO Work Phone: [facility] Work Phone: Start: 40-61-5612kvxphjapjnWOQKC ABHYANKAR Facility:[facility] [place]art: 11-03-2024 End: 77-57-7129Ymeyvrmpgn hospital visit by physicianArrival Time Radiology Work Phone: Radiology Pet CTComment on above: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]Start: 10-27-2024 End: 40-90-8655oyfcilmigcXcazz Kuns DO Work Phone: [facility] Work Phone: Start: 10-27-2024 End: 33-64-0101Ycaftkh encounter procedureBrekeith Hastings DO Work Phone: [facility] Work Phone: Start: 10-21-2024 End: 98-24-8583Gnkidalvsa hospital visit by physicianRad External FilmEF RAD EXTERNAL FILM VIRTUALComment on above:ArrivedStart: 10-21-2024 End: 95-88-9119azoptmngpdOTYOOPRBlanchard Valley Health System Bluffton Hospitaltart: 10-13-2024 End: 86-47-1089Clkdyr outpatient visit 40 minutesXilara Harris MD Work Phone: [facility] HospitalComment on above:Status post cervical spinal fusion (Primary Dx)Start: 10-13-2024 End: 61-04-6400qquwkuajflGKIAWLNSaint Francis Medical Center AmbulatoryStart: 10-10-2024 End: 35-84-5072dxszneanisFloxi Kuns DO Work Phone: [facility] Work Phone: Start: 10-10-2024 End: 05-67-1821Kyffslk encounter procedureBrekeith Hastings DO Work Phone: [facility] Work Phone: Start: 10-10-2024 End: 77-75-3103Mpslotb encounter procedureBrekeith Mendezs DO Work Phone: [facility] [place] Work Phone: Start: 10-10-2024 End: 43-95-8070nbrwftsqgaCdumi Kuns DO Work Phone: [facility] Work Phone: Start: 10-07-2024 End: 10-56-5025Aicpkwd encounter procedureBrekeith Mendezs DO Work Phone: [facility] [place] Work Phone: Start: 10-07-2024 End: 94-14-2972modyebwwzfGtcmq Kuns DO Work Phone: [facility] Work Phone: Start: 10-06-2024 End: 85-66-3969Svfjzkubn department patient visitGriselda Andrearoge DO Work Phone: [facility]-Emergency Room Work Phone: Start: 09-22-2024 End: 70-51-8641jflvwetscmXthkwsk Vytautas Giedraitis MDFacility:[facility] [place] Start: 09-20-2024 End: 07-29-5690Vxmdskcbv department patient visitGriselda Hastings DO Work Phone: [facility] Work Phone: Start: 09-15-2024 End: 52-28-7124ajoptkscwiGylocbr Vytautas Giedraitis MDFacility:[facility] Start: 09-11-2024 End: 55-39-7008Umlmfh flowsMarshal Cadena MD Work Phone: [facility] NEUROLOGYStart: 09-11-2024 End: 51-52-8898Zzhxnq flowsMarshal Cadena MD Work Phone: [facility] NEUROLOGYStart: 09-11-2024 End: 65-27-8656Guurvdbl SupportOziel Cadena MD Work Phone: [facility] SWS NEURComment on above:Nerve root and plexus disorder, unspecified (Primary Dx)Start: 09-11-2024 End: 68-37-9158Xomkghn encounter procedureBrekeith Hastings DO Work Phone: [facility] Work Phone: Start: 09-11-2024 End: 92-11-8638nloiwmblryIwufl Kuns DO Work Phone: [facility] Work Phone: Start: 07-31-2024 End: 72-69-3126Uzyikf Preet Cadena MD Work Phone: [facility] BM NEUROLOGYStart: 07-31-2024 End: 47-79-4408Rtlmwk Preet Cadena MD Work Phone: [facility] BM NEUROLOGYStart: 07-31-2024 End: 59-75-8694Tvfzjtcz SupportOziel Cadena MD Work Phone: [facility] SWS NEURComment on above:Nerve root and plexus disorder, unspecified (Primary Dx)Start: 07-28-2024 End: 16-78-9445lamuysmogeKtuzwhe Vytautas Giedraitis MDFacility:[facility] Start: 07-07-2024 End: 05-70-4687pwmktqsdwzQvvbjax Vytautas Giedraitis MDFacility:[facility] Start: 07-03-2024 End: 72-49-5719fhxkmhcvmkAujak Andreas DO Work Phone: [facility] Work Phone: Start: 07-03-2024 End: 21-61-8442Jmpgazj encounter procedureBrett Kuns DO Work Phone: [facility] Work Phone: Start: 07-02-2024 End: 51-12-2728Jkqygb Preet Cadena MD Work Phone: [facility] BM NEUROLOGYStart: 07-02-2024 End: 36-89-3956Xmhvja Preet Cadena MD Work Phone: [facility] BM NEUROLOGYStart: 07-02-2024 End: 05-27-0077Gjjflowb SupportOziel Cadena MD Work Phone: [facility] SWS NEURComment on above:Nerve root and plexus disorder, unspecified (Primary Dx)Start: 06-30-2024 End: 63-23-8808Indqlg follow up visit related to original Nilesh Harris MD Work Phone: [facility] HospitalComment on above:Status post cervical spinal fusion (Primary Dx)Start: 06-30-2024 End: 76-58-2330stsuejomirFLHAAATSurgery [facility]ty [facility] AmbulatoryStart: 06-24-2024 End: 99-19-8768Rixfuzj encounter procedureBrekeith Hastings DO Work Phone: [facility] Work Phone: Start: 06-24-2024 End: 54-47-5289fsrjeibgjfAongy Kuns DO Work Phone: [facility] Work Phone: Start: 05-21-2024 End: 75-56-4408Geswrk flowsheetOziel Cadena MD Work Phone: noms NEUROLOGYStart: 05-21-2024 End: 77-41-5421Qqakiy flowsMarshal Cadena MD Work Phone: noms NEUROLOGYStart: 05-21-2024 End: 64-87-5635Xulupnso SupportBremadisyn Cadena MD Work Phone: [facility] NEURComment on above:Other nerve root and plexus disorders (Primary Dx); Cervical paraspinal muscle spasm; Cervical stenosis of spinal canalStart: 04-30-2024 End: 94-22-5939Gdioca follow up visit related to original Kd Narayanan PA-C Work Phone: [facility] CenterComment on above:Cervical radiculopathy (Primary Dx); Status post cervical spinal fusion; Acute postoperative pain; Muscle spasms of neckStart: 04-30-2024 End: 09-82-6260swzdjqobkpKZAQ [facility] AmbulatoryStart: 04-28-2024 End: 42-49-2328mkfgtgxlcaGoyvyoyipACMC Healthcare System Work Phone: Start: 04-28-2024 End: 82-01-1266Qexobbh encounter procedureRegino Physician Group-[facility] Cardiology Work Phone: Start: 04-09-2024 End: 38-64-2533zyeifujxriYFLDYXBBlanchard Valley Health System Bluffton Hospitaltart: 04-09-2024 End: 72-66-7240Dlcuduuxff and management of inpatientXilara Harris MD Work Phone: [facility] 4Comment on above:Cervical radiculopathy (Primary Dx); Senile osteoporosisStart: 04-01-2024 End: 46-24-2924bqgufumbjcVknbtcpxhACMC Healthcare System Work Phone: Start: 04-01-2024 End: 47-10-7082Invmsxs encounter procedureRegino Physician Group-[facility] [place] Work Phone: Start: 03-31-2024 End: 64-52-7331Gktfdbsaba hospital visit by physicianRad External FilmEF RAD EXTERNAL FILM VIRTUALComment on above:ArrivedStart: 03-31-2024 End: 01-20-6450lkdceptmrjEFDJMUWBlanchard Valley Health System Bluffton Hospitaltart: 03-26-2024 End: 98-08-7345qtijglgtijHBEIDNTBlanchard Valley Health System Bluff[facility] Hospitaltart: 03-19-2024 End: 79-75-6255rfzzwmmkmnZBOGV [facility] Hamiltontart: 02-13-2024 End: 43-31-1366Rqnocbclua hospital visit by physicianEly X-Ray [address] [place], [place] [address]Comment on above:Cervical radiculopathyStart: 02-13-2024 End: 83-95-0045ypgkqulhyfCLODXPQCleveland Clinic Children's Hospital for Rehabilitation Start: 02-13-2024 End: 33-76-3776ewoygbgrsbWZAVQJTSelect [facility] Start: 02-11-2024 End: 40-13-4611hwlhnhiisfKPOEFWS [facility]: 02-11-2024 End: 24-27-8304bmmwgceseoYCYFOGK [facility] Hospitaltart: 02-11-2024 End: 99-89-1564Hpmaundwkv hospital visit by physicianc [id number] Cr Nonv1 Holter/Ecg ResourceHealthSouth - [facility] MatherComment on above:Cervical radiculopathy; Senile osteoporosisStart: 02-04-2024 End: 13-25-6611dcjfpvsophOGVJSWayne Hospitaltart: 01-31-2024 End: 64-80-5001zfzddgrajsKzsqhvlisLutheran Hospital Work Phone: Start: 01-31-2024 End: 08-73-0243Zncgtyz encounter procedureSwain Community Hospital Physician GroupWoodhull [facility] Work Phone: Start: 01-03-2024 End: 73-14-3113[facility] new 60 minutesDoretha Harris MD Work Phone: [facility] Training CenterComment on above:Cervical radiculopathy (Primary Dx); Senile osteoporosisStart: 12-13-2023 End: 42-30-6241Zatewr outpatient visit 40 minutesHelder Jack MD Work Phone: [facility] Tingley HospitalComment on above:Pontine glioma (Multi)Start: 12-13-2023 End: 20-00-7645ressgvufoaZHHKOMK B NEWTONOhioHealth Van Wert Hospitaltart: 12-13-2023 End: 07-88-4062Cfeaqtuebo hospital visit by physicianIntegr[facility] [place] M[facility] 1[facility] Toms RiverComment on above:Pontine glioma (Multi)Start: 12-13-2023 End: 59-81-8467ytfcjxrqcxIPCQM K SOTAKOhioHealth Van Wert Hospitaltart: 12-12-2023 End: 38-94-4481Kqelha outpatient new 45 minutesSolomon Narayanan PA-C Work Phone: [facility] CenterComment on above:Cervical radiculopathy (Primary Dx); Occipital neuralgia of left side; Balance problemStart: 12-03-2023 End: 86-88-7912wrjjkrfyymKJ Griselda Darling Work Phone: [facility] Work Phone: Start: 12-03-2023 End: 71-35-0642Xgryqrk encounter procedureDO Griselda Hastings Work Phone: [facility] Work Phone: Start: 11-02-2023 End: 56-50-2139Bdubmr outpatient visit 25 minutesRacquel Cole MD Work Phone: Hematology/OncologyComment on above: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)Start: 10-29-2023 End: 55-12-0116pwkeoaiqrcJW Griselda Hastings Work Phone: [facility] Work Phone: Start: 10-29-2023 End: 24-42-9484Fcsvxce encounter procedureDO Griselda Hastings Work Phone: 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]Start: 10-18-2023 End: 43-44-5362Qwkcrgh encounter procedureDO Griselda Hastings Work Phone: [facility] Cardiology Work Phone: Start: 10-09-2023 End: 73-84-5429dnqdgigsyoFH Griseldakeith Mendezs Work Phone: [facility] Work Phone: Start: 10-09-2023 End: 82-98-1093Tsfgtuh encounter procedureDO Griselda Mendezs Work Phone: [facility] [place] Work Phone: Start: 10-05-2023 End: 66-72-8768Zahxvo outpatient new 60 minutesHelder Jack MD Work Phone: [facility] Tingley HospitalComment on above:Brainstem lesion (Primary Dx); Pontine glioma (Multi)Start: 09-19-2023 End: 63-56-5020Dpvjwzcpcq hospital visit by physicianRad External FilmEF RAD EXTERNAL FILM VIRTUALComment on above:ArrivedStart: 09-05-2023 End: 30-85-2384efuscutwsjKS Griselda Mendezs Work Phone: [facility] Work Phone: Start: 09-05-2023 End: 13-53-0000Vtuptxe encounter procedureDO Griselda Mendezs Work Phone: [facility] Work Phone: Start: 09-05-2023 End: 18-58-7890apcjjvxmqvSJ Griselda Mendezs Work Phone: [facility] Work Phone: Start: 09-05-2023 End: 50-51-3456Wzhsdte encounter procedureDO Griselda Hastings Work Phone: [facility] Work Phone: Start: 08-15-2023 End: 10-57-2180Gmziawv encounter procedureDO Griselda Mendezs Work Phone: [facility] [place] Work Phone: Start: 08-02-2023 End: 38-81-8090tdlnpledbiJV Griselda Kuns Work Phone: [facility] Work Phone: Start: 08-02-2023 End: 39-49-4180Ilvjxsm encounter procedureDO Griselda Kuns Work Phone: [facility] [place] Work Phone: Start: 02-83-2018Nxdhw abstractingNikole Mota PEDIATRIC SOCIAL WORKER Work Phone: [facility] NEURO 210Start: 16-66-6382Xezxos flowsheet Nikole Mota PEDIATRIC SOCIAL WORKER Work Phone: noms BM NEUROLOGYStart: 60-40-0131Okhsei flowsheet Nikole Mota PEDIATRIC SOCIAL WORKER Work Phone: noms NEUROLOGYStart: 07-18-2023 End: 29-82-4740qzhawamcvvTVJNGSAdventHealth Wesley Chapeltart: 07-02-2023 End: 83-36-4760iynytbvzhsYskhb Kuns Other [place] [facility] Other Start: 75-37-9563Xozmuo outpatient visit 25 minutes Griselda Lemus [facility] HospitalaliaStart: 07-02-2023 End: 78-91-0505Vytzhww encounter procedureDO Griselda Kuns Work Phone: [facility] [place] Work Phone: Start: 05-31-2023 End: 43-99-4944dpvapmvnmcOhsdw Kuns Other [facility] Other Start: 28-62-3722Eijoup outpatient visit 25 minutes Griselda Lemus [facility] HospitalaliaStart: 24-70-3152Kyrzil outpatient visit 15 minutesRuddy Pollard Vascular SurgeryStart: 05-30-2023 End: 52-54-3163tiotkvvrjfTK Griselda Mendezs Work Phone: [employer] [facility] Other Start: 05-30-2023 End: 65-98-9393Lzfvers encounter procedureDO Griselda Andreas Work Phone: [facility] VascularStart: 05-30-2023 End: 53-71-1347Xiafkjp encounter procedureDO Griseldakeith Mendezs Work Phone: [facility] Work Phone: Start: 05-15-2023 End: 49-94-8339gbfmxnciyaStwvo Kamla Other [place] [facility] Other Start: 16-16-4574Pnwfiz outpatient visit 25 minutes Lilliam CasonFPG CardiologyStart: 21-20-9376Choagfufk encounterLinda GlynngeFPG Referral CoordinatorStart: 05-15-2023 End: 89-33-8288Lxzezwr encounter procedureDO Griselda Darling Work Phone: [facility] Work Phone: Start: 05-07-2023 End: 35-41-0521Pvbbjtqfq to same day surgery centerDO Griselda Hastings Work Phone: [facility]-Interventional Radiology Work Phone: Start: 05-07-2023 End: 31-10-2441qdxoqsnbtoBK Griselda Kuns Work Phone: [facility] Work Phone: Start: 05-04-2023 End: 78-93-5018blvsedmiwvGR Griselda Kuns Work Phone: [facility] Work Phone: Start: 05-04-2023 End: 37-74-7878Dultrbf encounter procedureDO Griselda Hastings Work Phone: [facility] [place] Work Phone: Start: 05-03-2023 End: 25-22-4263xnglloisbaCvzhpqg Langenberg Other [facility] Other Start: 09-61-9254Mcnqei outpatient new 45 minutes Ruddy Pollard Vascular SurgeryStart: 99-86-2530Vzlwnaxuv encounter Ruddy Pollard Referral CoordinatorStart: 05-01-2023 End: 43-71-3210ecbntrvgyoCduqr Kuns Other [place] [facility] Other Start: 07-23-8176Zxcxyk outpatient visit 25 minutes Griselda Lemus Family Medicine [place]Start: 04-25-2023 End: 12-79-1029aotfykyargRG Griseldakeith Hastings Work Phone: [facility] Work Phone: Start: 04-25-2023 End: 27-30-4650Rnshada encounter procedureDO Griselda Hastings Work Phone: [facility] [place] Work Phone: Start: 04-12-2023 End: 09-73-2507wgcpxuxglyEsrcr Kamla Other [employer] Other Start: 49-98-3435Doewcldjc encounterLinda Tito CardiologyStart: 04-11-2023 End: 57-92-7790yomhjxinohBrotw Kamla Other [employer] Other Start: 38-37-1886Twurvb outpatient new 45 minutesLinda Tito CardiologyStart: 04-10-2023 End: 77-80-0997xjlgnlthhnLucfx Kuns Other [employer] Other Start: 58-34-9216Cjcufmgtd encounterGriselda Lemus Family Medicine [place]Start: 03-30-2023 End: 01-32-6514bvepurgzhwQS Griselda Mendezs Work Phone: [facility] Work Phone: Start: 03-30-2023 End: 42-67-8605Nhnzsbw encounter procedureDO Griselda Hastings Work Phone: [facility] [place] Work Phone: Start: 03-21-2023 End: 17-31-2308Eqpuuwjsg department patient visitDO Griselda Mendezs Work Phone: [facility]-Emergency Room Work Phone: Start: 03-15-2023 End: 91-02-1024mtqgzuhyiyNurcl Andreas Other [employer] Other Start: 17-82-4384Jlakew outpatient visit 25 minutes Griseldakeith Lemus Family Medicine [place]Start: 03-08-2023 End: 50-21-9961zinfbjiidlDlosk Kuns Other [employer] Other Start: 17-06-2629Jzqpom outpatient visit 25 minutes Griseldakeith Lemus Family Medicine [place]Start: 02-26-2023 End: 39-79-3498Cevckgzxt department patient visitDO Griselda Hastings Work Phone: [facility]-Emergency Room Work Phone: Start: 21-00-9286mizlwaxtewIvulatoryDr. BRET HDEZ Facility:UNKNOWNStart: 12-05-2022 End: 09-06-5927cviowoqxnxZxasa Kuns Other [place] [facility] Other Start: 63-03-8955Xehibx outpatient visit 25 minutes Griselda AndrearogeSAM Family Medicine [place]Start: 11-15-2022 End: 25-23-9312hvcdysdtknXL Griselda Hastings Work Phone: [facility] Work Phone: Start: 11-15-2022 End: 84-52-4490Voimhzl encounter procedureDO Griselda Hastings Work Phone: [facility]-MRI [address] Work Phone: Start: 10-27-2022 End: 37-38-5225Wtjdnigqur hospital visit by physicianArrival Time Radiology Work Phone: Radiology Pet CTComment on above:Malignant neoplasm of head, 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]Start: 10-24-2022 End: 36-31-0202ipzvugjfpoHA Griselda Hastnigs Work Phone: [facility] Work Phone: Start: 10-24-2022 End: 11-99-8167Gbsbrti encounter procedureDO Griselda Hastings Work Phone: [facility]-Lab [place] Work Phone: Start: 09-28-2022 End: 31-02-4619epbpnnwimtOMTB R SULLINGERFacility:[facility] HospitalStart: 09-22-2022 End: 33-76-4023Adnmneoevl hospital visit by physicianJonelle Hernandez (I-Stat/3t) Work Phone: RadiologyComment on above: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]Start: 49-71-8701Lmtokxwnc encounterScandie Perez PA-C Work Phone: [facility] CenterComment on above:Patient QuestionStart: 09-13-2022 End: 17-36-0410Nqkfhtq encounter procedureScandie Perez PA-C Work Phone: [facility] Brain Tumor CenterComment on above:NPH (normal pressure hydrocephalus) (HCC) (Primary Dx)Start: 08-31-2022 End: 44-86-2283aftyuruoynXnljx Kuns Other [place] [facility] Other Start: 67-48-4718Ynavgt outpatient visit 25 minutes Grieslda Lemus [facility] CastaliaStart: 08-01-2022 End: 00-71-1600pjocywmamtBuiah Kuns Other [employer] Other Start: 08-15-1825Giksld outpatient visit 25 minutes Griselda Lemus [facility] Medicine [place]Start: 07-17-2022 End: 18-81-8272ohqwpjgiafYX Griseldakeith Mendezs Work Phone: [facility] Work Phone: Start: 07-17-2022 End: 99-59-1850Gchuatk encounter procedureDO Griselda Kuns Work Phone: [facility] [place] Work Phone: Start: 07-14-2022 End: 01-61-0247Kbjeujd encounter procedureDO Griseldakeith Mendezs Work Phone: [facility] [place] Work Phone: Start: 06-28-2022 End: 35-50-3050sqgwvcuxjfQveaszj [employer] Other [employer] [facility] Other start: 07-65-6216Botink outpatient new 45 minutes Trish Aleman [facility] NeurosurgeryStart: 05-26-2022 End: 25-82-7699bvzilavlqkKccvb Kuns Other [employer] Other Start: 25-87-1614Ycxvok outpatient visit 25 minutes Griselda Lemus Family Medicine [place]Start: 05-17-2022 End: 70-13-6576ejfkrvosjbSN Griselda Kuns Work Phone: [facility] Work Phone: Start: 05-17-2022 End: 05-47-7356Gpigvqirhz RecurringDO Griselda Kuns Work Phone: [facility]-Physical Therapy [address]Start: 06-43-8802Xoexvcktax RecurringDO Griselda Kuns Work Phone: [facility]-Physical Therapy [address] RdStart: 04-16-2022 End: 28-34-9509Nmgwoijdm department patient visitDO Griselda Hastings Work Phone: [facility]-Emergency RoomStart: 04-10-2022 End: 94-56-3783fpfcsusmduZugpv Kuns Other [employer] Other Start: 89-14-8966Quahrzsfh encounterGriselda Lemus Family Medicine [place]Start: 04-06-2022 End: 33-67-5471Gfdoofjeh department patient visitDO Griselda Hastings Work Phone: [facility]-Emergency RoomStart: 86-76-8058Anuvxiuis encounterAsya Reynolds RNHematology/OncologyComment on above:AppointmentStart: 03-22-2022 End: 34-37-2480nheyhfexntWcbnl Kuns Other [employer] Other Start: 41-79-2310Xujdmxzcf encounterGriselda Lemus Family Medicine [place]Start: 03-16-2022 End: 92-99-0367ufkhoywmcqZpehu Kuns Other [employer] Other Start: 13-64-2065Sytqir outpatient visit 25 minutes Griseldakeith Lemus Family Medicine [place]Start: 81-47-2917Arivrwlvv encounterSelf Les Brain Tumor CenterComment on above:Triage (Internal Referral--old) Start: 03-09-2022 End: 75-21-0683dkxvbmuekkFsqkl Kuns Other [employer] [facility] Other Start: 48-37-5827Rfsxjstqe encounterBrett AndrearogeSKYLARG Family Medicine [place]Start: 03-07-2022 End: 22-88-3167izzluzjkfnZffct Kuns Other [facility] Other Start: 37-32-8863Orueyncov encounterBrett AndreaMarcusG Family Medicine [place]Start: 56-66-6123Tmrrhofwf encounterBrett AndrearogeFPG Family Medicine [place]Start: 03-03-2022 End: 34-57-7063rrqbmwiebbMK Griselda Kuns Work Phone: [facility] Other Start: 03-03-2022 End: 60-69-3824Fbpobcnxbm RecurringDO Griselda Kuns Work Phone: [facility]-Physical Therapy [address] RdStart: 61-50-3141Ivnqriwkta RecurringDO Griselda Kuns Work Phone: [facility]-Physical Therapy [address] RdStart: 02-07-2022 End: 55-59-8020siyvolizjgTjgqk Kuns Other [employer] [facility] Other Start: 71-25-8799Bfwmftcyt encounterBrett AndrearogeFPG Family Medicine [place]Start: 01-30-2022 End: 19-53-4527tbejinxtgiTlrqb Kuns Other [employer] Other Start: 27-89-8459Osiome outpatient visit 25 minutes Griselda DarlingFPG Family Medicine [place]Start: 01-12-2022 End: 47-58-8145qyglnwdquoYhrfg Kuns Other [facility] Other Start: 31-91-8100Kuvfqexpz encounterBrett KunsFPG Family Medicine [place]Start: 12-26-2021 End: 06-71-5986ftagiskcjlOxasf Kuns Other [facility] Other Start: 54-31-0180Zoxrmn outpatient visit 25 minutes Griselda DarlingFPG Family Medicine [place]Start: 12-23-2021 End: 26-50-1370ctuqosiqajUbvlc Kuns Other [facility] Other Start: 81-98-7465Jmwvzaeln encounterBrett KunsFPG Family Medicine [place]Start: 12-05-2021 End: 32-28-9231piqmnswfxxQsotk Kuns Other [facility] Other Start: 60-10-6360Bbztwr outpatient visit 25 minutes Griselda DarlingFPG Family Medicine [place]Start: 57-24-3220Xknvogfjj encounterBrett KunsFPG Family Medicine [place]Start: 11-22-2021 End: 79-13-0486cjilbofvzcWhdzg Kuns Other [facility] Other Start: 40-49-5661Fuitkobod encounterBrett KunsFPG Family Medicine [place]Start: 42-96-9491Csnzty outpatient visit 15 minutesGriselda Mendezs Work Phone: [phone]-Dxwfoopraxvf-[place] Work Phone: Start: 11-09-2021 End: 75-66-1136rdphvjzekqPbuwl Kuns Other [facility] Other Start: 08-31-3132Zajkegwgj encounterGriselda MendezrogeWhittier Rehabilitation Hospital CastaliaStart: 11-08-2021 End: 92-19-8987tqubhasztgObnbe Kuns Other [facility] Other Start: 00-16-9383Nmauyd outpatient visit 25 minutes Griseldakeith HastingsTUBA CITY [facility] Family [facility] CastaliaStart: 84-34-2692Dbtcrx consultation new/estab patient 60 minGriselda Hastings Work Phone: [phone]-KnysgyuSelect [facility]ty Hospital Work Phone: start: 11-01-2021 End: 72-03-5356nvasnbxeieIzeox Kuns Other [facility] Other Start: 78-54-6971Nmvptk outpatient visit 25 minutes Griseldakeith HastingsWhittier [facility] Hospital Cast[place]Start: 10-31-2021 End: 61-85-0676hbovveldjhKvxsfu Elskens Other [facility] Other start: 77-82-0586Xdrwzqiii encounterDadionicio MataG [facility] NeurosurgeryStart: 10-27-2021 End: 07-57-2062wybrcumjqzYaklw Abhyankar MD Work Phone: Hematology/OncologyComment on above: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); Lung nodules; Malignant neoplasm of head, face and neck (HCC)Start: 10-27-2021 End: 72-28-7350Bjjmfavzgeim consultation with Radha Cole MD Work Phone: SANDUSKYStart: 10-24-2021 End: 54-77-0412glmnbsmtdpJacgum Elskens Other [facility] Other start: 61-23-1100Wchxtx outpatient new 30 minutes Sheng EsperanzaG [facility] NeurosurgeryStart: 26-31-3687Xitnmzngw encounter Racquel Cole MD Work Phone: Cancer Appts MCComment on above:Referral Information (Neurosurgery)Start: 10-13-2021 End: 46-16-5273wwsosiuuvoEzvzw Abhyankar MD Work Phone: Hematology/OncologyComment on above:Glioma of brain (HCC) (Primary Dx); Lung nodules; Primary squamous cell carcinoma of head and neck (HCC)Start: 10-13-2021 End: 47-80-5151Bsxjwfs encounter Bernard Cole MD Work Phone: SANDUSKYStart: 10-06-2021 End: 12-74-2350plklxescqsRonjn Kuns Other [employer] Other Start: 12-59-0303Nhanvaqhb encounterAsya Kumar RN Hematology/OncologyComment on above:ResultsStart: 10-06-2021 End: 25-87-6562Yuilgevscg hospital visit by physicianArrival Time Radiology Work Phone: Radiology Pet CTComment on above:Malignant neoplasm of head, 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]Start: 09-29-2021 End: 12-57-8888htwqbkxjraGltpt Kuns Other [employer] Other Start: 38-78-4567Wzvupyyhq encounterBrett Allan Kathy Primary CareStart: 09-27-2021 End: 15-62-2672xwsxiiwnpjSnawe Kuns Other [employer] Other Start: 03-38-0286Cspcxpkhb encounterBrekeith Lemus Kathy Primary CareStart: 09-19-2021 End: 97-40-4018edmdmksxwwTclru Kuns Other [employer] Other Start: 44-04-3008Dtndif outpatient visit 25 minutes Griselda AndreasFPG Family Medicine [place]Start: 09-12-2021 End: 79-38-0652hrrfnmypzzUbizw Kuns Other [employer] Other Start: 92-78-9889Bbutkqjid encounterBrett KunsFPG Family Medicine [place]Start: 09-08-2021 End: 18-08-0979dyezdoqkleTtdpu Kuns Other [employer] [facility] Other Start: 05-18-3323Lyyrywnit encounterBrett KunsFPG Family Medicine [place]Start: 06-30-2021 End: 74-02-5837xtszxrqfzjOvimf Kuns Other [facility] Other Start: 87-37-3318Uluemf outpatient visit 15 minutes Griselda KunsFPG Family Medicine [place]Start: 06-72-6705Qppslzimt encounterBrett KunsFPG Family Medicine [place]Start: 06-29-2021 End: 22-92-4518hhzmxlaajyOzxvz Kuns Other [employer] [facility] Other Start: 43-52-2533Udtfbeh evaluation of patient and reportBrett KunsFPG Family Medicine [place]Start: 04-19-2021 End: 58-85-5480cwsnlnmgzwEpnza Kuns Other [employer] Other Start: 03-64-0644Rdomywn evaluation of patient and reportBrett KunsFPG Family Medicine [place]Start: 27-33-4285Vcazuatyh encounter Griselda KunsFPG Family Medicine [place]Start: 60-87-0670Htyxks outpatient visit 15 minutesBrett KunsFPG Family Medicine [place]Start: 10-01-2020 End: 02-64-1295Irpxwns encounter procedureGriselda Hastings Work Phone: [phone]-VaqyegrdftheadjzevOxjkb: 09-20-2020 End: 93-88-6567Rucxmkx encounter procedureGriselda Hastings-[facility]Start: 09-13-2020 End: 48-75-0903Lkxqnht encounter procedureGriselda Hastings-XRay [facility] Procedures DateProcedureProcedure DetailPerforming ClinicianStart: 62-56-0060Mekvk brachial pressure indexBrekeith Hastings DO Work Phone: Start: 01-08-2025 End: 80-48-7427DGJNDMWRKRA SKIN LESIONRylee Salvador SAAVEDRA Work Phone: Start: 35-36-3069Zjdyb chest X-rayGriselda Hastings DO Work Phone: Start: 37-50-5518Rbgad Strep (POC)Griselda Hastings DO Work Phone: Start: 49-68-5511XJH (POC)Griselda Hastings DO Work Phone: Start: 34-67-5083WcrvqivnrcjkcpmftzgefyukjpOrcxi Kuns DO Work Phone: Start: 62-11-4739Zt soft tissue neck w/contrast materialVivenori Cole MD Work Phone: Start: 63-82-8540Ae thorax w/contrast materialVivenori Cole MD Work Phone: Start: 20-11-8961Iujrj count complete auto&auto difrntl wbcMindy Harpreet Hagan PA-C Work Phone: Start: 22-93-1449Vbaql Interpretation of outside study Doretha Harris MD Work Phone: start: 40-53-8030Q-ray of cervical spineGriselda Hastings DO Work Phone: Start: 38-80-1833Ekjngupy tomography of abdomen and pelvis with contrastBre [employer] DO Work Phone: Start: 53-25-7099FK of soft tissues of neck with contrast [employer] DO Work Phone: Start: 43-32-9264Bvzeblpntlw Panel (PCR)Griselda Pramana Work Phone: Start: 95-00-4233Gasrv chest X-ray Pramana Work Phone: Start: 31-42-2619Swppg brachial pressure indexBre Pramana Work Phone: Start: 45-29-5054N-ray of cervical spineBre Pramana Work Phone: Start: 55-05-6051Lgwbi metabolic panel calcium total Chicho Bryan MD Work Phone: [phone]: 52-79-7330Bcqdu spine cervical 2 or 3 views Nate Alvarez MD Work Phone: [phone]: 84-75-5203WQQYI OXIMETRY, Savannah Cheek MD Work Phone: [phone]: 00-73-0639RM tomography Unspecified body region Doretha Harris MD Work Phone: [phone]: 45-09-6069Mecsgsfq bldAngela M Capp CAA Work Phone: [phone]: 04-09-2024 End: 17-25-2623Aqwvdr ant interbody decompress cervical belw v1Plvregqlara Harris MD Work Phone: [phone]: 79-23-6219Qkqxg typing serologic rh (d)Doretha Harris MD Work Phone: [phone]: 80-38-1884Njhtl Interpretation of outside study Doretha Harris MD Work Phone: [phone]: 50-75-6247Ajt bone density study 1/> sites axial skelDoretha Harris MD Work Phone: start: 95-22-4446Fwt routine ecg w/least 12 lds trcg only w/o i&rXiaofeneeta Harris MD Work Phone: start: 05-10-0838Hyj brain brain stem w/o w/contrast Bo Heaton PA-C Work Phone: start: 66-60-2991Nh soft tissue neck w/contrast Liudmila Cole MD Work Phone: Start: 09-49-9826Li thorax w/contrast Liudmila Cole MD Work Phone: Start: 16-19-8528Fuanc count complete auto&auto difrntl wbcRacquel Cole MD Work Phone: Start: 38-50-5761Znevemaital Panel (PCR)DO Griselda [employer] Work Phone: Start: 61-81-5097Srfde chest X-rayDO Griselda [employer] Work Phone: Start: 24-57-4013Zgzfy Interpretation of outside study Ayah Gross MD Work Phone: Start: 00-01-3130Colak brachial pressure indexDO Griselda [employer] Work Phone: Start: 48-88-1325Zaeft limb angiographyDO Griselda [employer] Work Phone: Start: 27-48-8183VQ angiography of headDO [employer] Work Phone: Start: 16-50-3134LL angiography of neck vesselsDO [employer] Work Phone: Start: 93-27-8924Drfkl volume recorder pneumoplethysmographyDO Griselda [employer] Work Phone: Start: 71-14-0493KQHV Antigen (LFIA)DO Griselda [employer] Work Phone: Start: 75-05-9545GW lumbar spine wo conDO Griselda Hastings Work Phone: Start: 24-25-3740FQ pre/post mri xrayDO Griselda Hastings Work Phone: Start: 20-84-3908Ub thorax w/contrast Liudmila Cole MD Work Phone: Start: 80-26-1139Rb soft tissue neck w/contrast Liudmila Cole MD Work Phone: Start: 80-43-6437Gelhf count complete auto&auto difrntl wbcRacquel Cole MD Work Phone: Start: 33-21-5480Esg brain brain stem w/o w/contrast Chai Perez PA-C Work Phone: Start: 24-78-0838WL of head without contrastDO Griselda Hastings Work Phone: Start: 32-07-9028Knmlb chest X-rayDO Griselda Hastings Work Phone: Start: 11-26-5243VR cervical spine without contrastDO Griselda Hastings Work Phone: Start: 55-95-3731Kvbzh depression screening assessment Racquel Cole MD Work Phone: Start: 24-90-2578Bd soft tissue neck w/contrast Liudmila Cole MD Work Phone: Start: 90-79-6260Xq thorax w/contrast Liudmila Cole MD Work Phone: Start: 02-63-2910Zggjz count complete auto&auto difrntl wbcRacquel Cole MD Work Phone: Start: 34-60-7990Ktumc depression screening assessment Asya Engelson RNStart: 50-14-5908Ewqar chest X-rayGriselda MendezsExcision of melanomaBrekeith Hastings Work Phone: Plan of Treatment DateCare ActivityDetailAuthorStart: 09-26-5050PLD Vaccine (1 - 1-dose 75+ series)RSV Vaccine (1 - 1-dose 75+ series)[facility]: 04-10-2027 Diabetes ScreeningDiabetes ScreeningSelect Medical OhioHealth Rehabilitation Hospitaltart: 12-76-8446Vrmtzyjg ScreeningDiabetes ScreeningSelect Medical OhioHealth Rehabilitation Hospitaltart: 95-91-2621Tquffojuq for osteoporosisBone Density White HospitalStart: 01-08-2026 End: 30-70-4096Wlaushi encounter procedureNOMS SWS DERMStart: 04-30-2025 End: 28-37-8965Rfrisiyp Wenyqiq4404/30/2025 2:00 PM EST Clinical Support TRENT [facility] [address] [phone] Oziel Cadena MD [address] Katiemarissa Rothman [address] [place] [address] TRENT Shay NeurologyStart: 04-06-2025 End: 32-09-4815Hjoqigt encounter hhcpajxvo12/20/2025 9:30 AM EDT Office Visit [facility] [address] [place] [address] [address] [place] [address] Doretha Harris MD [address]255 [place] [address] [facility] 03-18-2025 End: 24-99-5959Owwzsqfl Mnqosen8703/18/2025 2:20 PM EDT Clinical Support [facility] [address] [facility] [address] [place] [address] Oziel Cadena MD 5319 Katie Rothman [address] [place] [address] TRENT Shay NeurologyStart: 03-18-2025 End: 32-00-7816Uqqbvuwz Qzhspke5403/18/2025 11:30 AM EDT Clinical Support NOMRoge [facility] [address] [place] [address] Oziel Cadena MD [address] [facility] [address] Rothman [address] [place] [address] ArrivedTRENT Shay NeurologyComment on above:ArrivedStart: 25-99-6637Jjwqr brachial pressure indexOhioHealth Nelsonville Health Centertart: 60-40-5146Ozrxlyryi vaccinationNOMO HealthcareStart: 02-04-2025 End: 79-33-6942Hvbkjdhg SupportNOMS SWS NEURComment on above:ArrivedStart: 01-08-2025 End: 18-37-6554Fcobnwu encounter procedureNOMS SWS DERMComment on above:Arrived Start: 01-01-2025 End: 02-07-7196Chtalyk encounter opucznvkt21/17/2025 10:30 AM EDT Office Visit [facility] [address] [place] [phone] Anahi Franco PA [address] [place] [address] NOMS SWS DERMStart: 12-24-2024 End: 89-95-3630Nptlbgtc SupportNOMS SWS NEURComment on above:ArrivedStart: 11-12-2024 End: 63-53-2354Adlxeink SupportNOMS SWS NEURComment on above:ArrivedStart: 11-07-2024 End: 99-96-9666Joyywb-up encounterHematology/OncologyComment on above:[address] and labStart: 04-23-8758EaqqbtfjiKing'S Daughters Medical Center [place] Start: 11-03-2024 End: 92-35-3551Xjxgbyiakizxu metabolic 2000 panel - Serum or PlasmaCOMPREHENSIVE METABOLIC PANEL Lab Routine 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) Expected: 11/03/2024 (Approximate), Expires: 02/02/2025[facility] Work Phone: Comment on above:Expected: 11/03/2024 (Approximate), Expires: 02/02/2025Start: 11-03-2024 End: 71-19-9432Zctdzrh encounter /19/2025 9:00 AM EDT Appointment Radiology Pet CT [address] [place] [address] [place] [address] Ct Chest and neck with contrast and labRadiology Pet CTComment on above:Ct Chest and neck with contrast and labStart: 11-01-2024 End: 55-00-8886KNO W Auto Differential panel - BloodCOMPLETE BLOOD COUNT AND DIFFERENTIAL Lab Routine 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) Expected: 11/01/2024 (Approximate), Expires: 11/01/2024[facility] ClinicComment on above:Expected: 11/01/2024 (Approximate), Expires: 11/01/2024Start: 11-01-2024 End: 13-37-3559Wswsapjebwzkj metabolic 2000 panel - Serum or PlasmaCOMPREHENSIVE METABOLIC PANEL Lab Routine 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) Expected: 11/01/2024 (Approximate), Expires: 11/01/2024[facility] Comment on above:Expected: 11/01/2024 (Approximate), Expires: 11/01/2024Start: 11-01-2024 End: 37-91-5855HY Chest W contrast IVCT CHEST W IVCON Radiology Routine 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) Expected:11/01/2024 (Approximate), Expires: 12/01/2024[facility] ClinicComment on above:Expected: 11/01/2024 (Approximate), Expires: 12/01/2024Start: 11-01-2024 End: 55-91-0304HY Neck W contrast IVCT NECK SOFT TISSUE W IVCON Radiology Routine 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) Expected: 11/01/2024 (Approximate), Expires: 12/01/2024[facility] Work Phone: Comment on above:Expected: 11/01/2024 (Approximate), Expires: 12/01/2024Start: 69-25-4248O-ray of cervical spineXR cervical spine 2V [facility] Centertart: 26-09-8623VL Cervical spine 2 Views [facility] Centertart: 86-15-6550OVRMLRXC SCREENDIABETES SCREEN [facility] Hospitaltart: 09-29-2024 End: 62-90-9726Oontqxa encounter /14/2025 11:00 AM EDT Office Visit [facility] [address] [place] [address] Doretha Harris MD [address] [facility], [address] [place] [address] [facility]: 09-11-2024 End: 69-44-0299Paujzuxp Nuyyhyf5909/11/2024 10:40 AM EDT Clinical Support [facility] NE[facility] [address] [place] [address] Oziel Cadena MD [address] [facility] [address] [place], [place] [phone] NOMS SWS NEURStart: 58-40-1039Gozcm brachial pressure indexUS ankle/arm indicesOhioHealth Nelsonville Health Centertart: 07-31-2024 End: 32-13-6570Cxtmkrmr SupportNOMS SWS NEURComment on above:ArrivedStart: 07-02-2024 End: 17-88-5355Yuoavghd SupportNOMS SWS NEURComment on above:ArrivedStart: 06-30-2024 End: 04-77-2542ZC Cervical spine 2 or 3 ViewsXR cervical spine 2-3 views Imaging Routine Status post cervical spinal fusion Expected: 06/30/2024, Expires: 06/30/2025[facility] Service Area Work Phone: Comment on above:Expected: 06/30/2024, Expires: 06/30/2025Start: 06-30-2024 End: 91-19-0613Jmxjbwt encounter procedureDunlap Memorial HospitalStart: 05-21-2024 End: 09-64-2030Mfdajjqn Fxapbar6205/21/2024 2:00 PM EST Clinical Support [facility] NE[facility] [address] [place] [address] Oziel Cadena MD [address] [place] [address] ArrivedNOMS SWS NEURComment on above:ArrivedStart: 05-16-2024 End: 38-81-0597Olejkav encounter mnpnargkb00/29/2024 9:15 AM EST Office Visit [facility] [address] [facility] [address] [place] [address] Doretha Harris MD [address] [facility],[address] [place], [place] [phone] [facility] HospitalStart: 05-02-2024 End: 16-22-4827Qyxjjhy encounter [facility]Health[facility] [place] Start: 04-30-2024 End: 74-15-1359ZH Cervical spine 2 or 3 ViewsXR cervical spine 2-3 views Imaging Routine Cervical radiculopathy Status post cervical spinal fusion Expected: 04/30/2024, Expires: 04/30/2025[facility] Service Area Work Phone: Comment on above:Expected: 04/30/2024, Expires: 04/30/2025Start: 04-30-2024 End: 92-56-7830Pnhgein encounter fmexgqxac86/13/2024 1:00 PM EST Office Visit [facility] [address] [facility] [address] [place] [address] Solomon Narayanan PA-C [address] [place] [address] [facility]: 04-09-2024 End: 86-02-2205Ruyvzltxj to same day surgery aepqcx2704/09/2024 7:45 AM EDT - 04/09/2024 12:25 PM EDT Surgery [facility] [place] [address] [place] [address] Doretha Harris MD [address] [facility], [address] [place] [address] Fusion Spine Anterior Cervical and Discectomy C5-6, C6-7 [68736 (CPT )][facility] [place] ORComment on above:Fusion Spine Anterior Cervical and Discectomy C5-6, C6-7 [91689 (CPT )]Start: 04-09-2024 End: 46-53-7355Sfxvuz ant interbody decompress cervical belw f9Usyawo Spine Anterior Cervical and Discectomy Cervical radiculopathy Senile osteoporosis 47:45 AM EDTVirtual [facility] [place] ORStart: 65-51-7119Weygzozkei hospital visit by ncgrzhzao11/23/2024 7:45 AM EDT Hospital Encounter [facility] [place] [address] [place] [address] Doretha Harris MD [address] [facility], [address] [place] [address] [facility] [place] ORStart: 41-00-4942UUeO/Tdap/Td Vaccines (2 - Td or Tdap)DTaP/Tdap/Td Vaccines (2 - Td or Tdap)[facility] CenterStart: 26-27-6874Efgak microalbumin profileDTaP,Tdap,Td Vaccine (2 - Td or Tdap)[facility] Hospitaltart: 03-11-2024 End: 83-64-2667Ynvgwfy encounter dkfsbgunf36/24/2024 11:30 AM EDT Office Visit [facility] [address] [facility] [address] [address] Solomon Narayanan PA-C [address] [place] [address] [facility] CenterStart: 82-16-0201Uivetwjod vaccinationInfluenza Vaccine (#1)NOMS HealthcareComment on above:Postponed from 02/16/2023 (Patient Refused)Start: 02-27-2024 End: 73-67-7018Bygnzabse to same day surgery centerHealth[facility] [place] ORComment on above:Anterior Cervical Discectomy and Fusion C5-6, C6-7 [56547 (CPT )]Start: 02-27-2024 End: 22-80-3505Anceim ant interbody decompress cervical belw e8Khuuivi [facility] [place] ORStart: 48-14-4610Fnelwsttcj hospital visit by physicianHealth[facility] [place] ORStart: 66-02-8462HTIPQ-19 Vaccine ( season) COVID-19 Vaccine ( season)[facility] CenterStwyaconda: 43-12-8075Eubej-19 Vaccine ( season)Covid-19 Vaccine ( season)[facility] Hospitaltart: 46-09-4579Merdp-19 Vaccine ( season) Covid-19 Vaccine ()[facility] Hospitaltart: 83-12-0653Gmfiadyne vaccinationOhioHealth Nelsonville Health CenterStwyaconda: 02-15-2024 End: 48-19-7920Pkjazdb encounter fyhrmzfcl49/30/2024 9:00 AM EDT Office Visit [address] Linda [address] [address] Vincenzo Sanchez MD [address] [place] [address] Dr Linda [address], [address] [address]45 [facility]: 02-13-2024 End: 98-35-0601Qpzhpya encounter kcfpfwipi08/28/2024 11:00 AM EDT Appointment [place] [address] [place] [address] [facility]UC[facility] Hospitaltart: 02-03-2024 End: 09-22-5086Cyjkqglf and Metabolites,SNicotine and Metabolites,S Lab Routine Cervical radiculopathy Senile osteoporosis Expected: 02/03/2024 (Approximate), Expires: 01/02/2025[facility] Work Phone: Comment on above:Expected: 02/03/2024 (Approximate), Expires: 01/02/2025Start: 01-03-2024 End: 97-71-0011MHG Skeletal system.axial Views for bone densityXR DEXA bone density axial skeleton w VFA Imaging Routine Senile osteoporosis Expected: 01/03/2024,Expires: 01/02/2025[facility] Service Area Work Phone: comment on above:Expected: 01/03/2024, Expires: 01/02/2025Start: 01-03-2024 End: 06-57-8238EE Cervical spine 6 ViewsXR cervical spine complete 6+ views Imaging Routine Cervical radiculopathy Expected: 01/03/2024, Expires: 01/02/2025 [facility] Work Phone: Comment on above:Expected: 01/03/2024, Expires: 01/02/2025Start: 01-03-2024 End: 69-76-3304Keglnik encounter wygyxgndz09/18/2024 1:30 PM EDT Office Visit [facility] [address] [address] Doretha Harris MD [address] [facility], [address] [address] [facility]: 12-13-2023 End: 76-98-0484JG Brain WO and W contrast IVMR brain w and wo IV contrast Imaging Routine Pontine glioma (Multi) Expected: 12/13/2023 (Approximate), Expires: 12/12/2024[facility] Service Area Work Phone: comment on above:Expected: 12/13/2023 (Approximate), Expires: 12/12/2024Start: 12-13-2023 End: 55-47-9532Sosoblw encounter procedureUH Saint [facility] Townshiptart: 09-28-2023 End: 55-34-4650Tkhhzgy encounter gndywttln20/12/2024 10:15 AM EDT Office Visit [facility] [address] [place] [address] [place] [address] Department [place] [address] [facility]: 79-11-0243Mzuvm brachial pressure indexOhioHealth Nelsonville Health Centertart: 08-30-2023 End: 19-19-6719Xhaapcy encounter vpwdxztda81/14/2024 9:40 AM EDT Office Visit [facility] [address] [facility] [address] [place] [address] Nikole Mota PEDIATRIC SOCIAL WORKER [address] Katie Rothman [address] [place] [address] [facility] NEURStart: 07-26-2023 End: 75-29-0429Hccmvtr encounter hxthpdisj29/08/2024 1:30 PM EST Procedure Visit [facility] NE[facility]O [address]OTH[address] [place] [address], [place] [address] Nikole Mota NP [address] Katie Rothman [address] [place] [address], [place] [address] [facility] NEURO 210Start: 07-19-2023 End: 50-65-6071Rnvyaxjv Oicboiv9207/19/2023 1:30 PM EST Clinical Support [facility] [address] [place] [address] Nikole Mota PEDIATRIC SOCIAL WORKER [address] Katie Rothman [address] [place] [address] Cervical dystoniaNOMS SWS NEURComment on above: Cervical dystoniaStart: 30-88-6963Tbofjyxeoi Health ScreeningBehavioral Health ScreeningSelect Medical [facility] Rehabilitation Hospitaltart: 20-83-5628Evvff volume recorder pneumoplethysmographyUS arterial pvr rest [facility] Start: 22-61-8560PbwjuxuclOhioHealth Nelsonville Health Centertart: 70-39-4744CaolkrsniOhioHealth Nelsonville Health Centertart: 19-15-7905Nbxcb volume recorder pneumoplethysmographyUS arterial pvr rest [facility] Start: 30-65-9390TQQUE-19 Vaccine ( season)COVID-19 Vaccine ( season)[facility]: 05-71-6352Dditvpwqo vaccinationINFLUENZA (Season Ended)[facility] Hospitaltart: 63-67-1447YKX High Risk: (Elderly (60+) or Population) (1 - Risk 60-74 years 1-dose series)RSV High Risk: (Elderly (60+) or Population) (1 - Risk 60-74 years 1-dose series)[facility]: 77-08-2307HSW patients and/or patients aged 60+ years (1 - 1-dose 60+ series)RSV patients and/or patients aged 60+ years (1 - 1-dose 60+ series) [facility]: 61-49-8669GWF Vaccine (1 - 1-dose 60+ series)RSV Vaccine (1 - 1-dose 60+ series)[facility] Hospitaltart: 10-30-2022 End: 83-45-8499VRZ W Auto Differential panel - BloodCBC + DIFF Lab Routine 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) Lung nodules Malignant neoplasm of head, face and neck (HCC) Expected: 10/30/2022 (Approximate), Expires: 10/30/2022[facility] Work Phone: Comment on above:Expected: 10/30/2022 (Approximate), Expires: 10/30/2022Start: 10-30-2022 End: 54-40-6292Wkfbjyafqkugb metabolic 2000 panel - Serum or PlasmaCOMP METABOLIC PANEL Lab Routine 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) Lung nodules Malignant neoplasm of head, face and neck (HCC) Expected: 10/30/2022 (Approximate), Expires: 10/30/2022[facility] Work Phone: Comment on above:Expected: 10/30/2022 (Approximate), Expires: 10/30/2022Start: 10-30-2022 End: 34-43-3086Kw soft tissue neck w/contrast materialCT NECK SOFT TISSUE W IVCON Radiology Routine Malignant neoplasm of head, face and neck (HCC) Expect ed: 10/30/2022 (Approximate), Expires: 11/29/2022[facility] Work Phone: Comment on above:Expected: 10/30/2022 (Approximate), Expires: 11/29/2022Start: 10-30-2022 End: 22-38-8701Rj thorax w/contrast materialCT CHEST W IVCON Radiology Routine Lung nodules Expected: 10/30/2022 (Approximate), Expires: 11/29/2022[facility] Work Phone: Comment on above:Expected: 10/30/2022 (Approximate), Expires: 11/29/2022Start: 67-52-0034Plohk depression screening assessment DEPRESSION SCREENINGSelect Medical [facility] Rehabilitation Hospitaltart: 46-95-2829Jporasm CultureAerobic CultureOhioHealth Nelsonville Health Centertart: 05-55-4893Tsvjedsvr Culture Anaerobic CultureOhioHealth Nelsonville Health Centertart: 33-97-3402Zhtxbmjumuq observation [Identifier] in Unspecified specimen by Gram stainOhioHealth Nelsonville Health Centertart: 57-64-0372Smqozrmsqbehv fluid cultureOhioHealth Nelsonville Health Centertart: 07-17-2022 End: 26-97-6073RgloylnacOhioHealth Nelsonville Health Centertart: 34-16-3075EyjtmcgrjOhioHealth Nelsonville Health Centertart: 11-57-2750RNNLGITFTG ASSESSMENTDEPRESSION ASSESSMENTCleTrinity Health System [facility] Medical Centertart: 24-80-8170Ipqbe chest X-rayXR ribs LT min 3V w CXR1V*[facility]ertart: 03-58-1758RS Unspecified body region ViewsOhioHealth Nelsonville Health Centertart: 47-24-0029Rxswuhsil vaccinationSelect Medical [facility] Rehabilitation Hospitaltart: 84-72-5387Lpkyl depression screening assessmentDEPRESSION SCREENINGSelect Medical [facility] Rehabilitation Hospitaltart: 36-01-0517RLSTN-19 VACCINE (3 - Booster for Pfizer series)COVID-19 VACCINE (3 - Booster for Pfizer series) [facility] Hospitaltart: 98-25-4212JLKZWRNANF ASSESSMENTDEPRESSION ASSESSMENT [facility] Hospitaltart: 88-33-7257OXOVY-19 VACCINE (3 - Booster for Pfizer series)COVID-19 VACCINE (3 - Booster for Pfizer series)[facility] Hospitaltart: 42-56-2520DZYDGSZB CANCER SCREENING DISCUSSIONPROSTATE CANCER SCREENING DISCUSSIONSelect Medical [facility] Rehabilitation Hospitaltart: 51-46-7234Uvzyzpkk specific antigen measurement Prostate Cancer Screening DiscussionSelect Medical [facility]Health Rehabilitation Hospitaltart: 2012 Pneumococcal Vaccine: 50+ (1 of 1 - PCV)Pneumococcal Vaccine: 50+ (1 of 1 - PCV) [facility]tart: 00-50-2640Jxfucirnw for malignant neoplasm of lungLung Cancer ScreeningOhioHealth Nelsonville Health CenterStart: 75-90-5171TAKCCMZM VACCINE (1 of 2)SHINGRIX VACCINE (1 of 2)[facility] Hospitaltart: 73-05-3635Yxcvcr Vaccines (1 of 2)Zoster Vaccines (1 of 2)[facility] Start: 88-64-6088TCACGHZKZ (FIT-DNA)COLOGUARD (FIT-DNA)[facility] Hospitaltart: 05-54-3050WsjqvmiirvzKJZMTHOWFABYbxgbsadr ClinicStart: 13-27-7156EASUJOWKWT CANCER SCREENINGCOLORECTAL CANCER SCREENINGSelect Medical [facility] Rehabilitation Hospitaltart: 61-11-3763TX COLONOGRAPHYCT COLONOGRAPHYSelect Medical [facility] Rehabilitation Hospitaltart: 59-00-1195DDFPF OCCULT BLOOD FECAL OCCULT BLOODSelect Medical [facility] Rehabilitation Hospitaltart: 85-13-6899Omcveicd specific antigen measurementProstate Cancer Screening DiscussionSelect Medical [facility] Rehabilitation Hospitaltart: 11-25-2007 Screening for malignant neoplasm of colonSelect Medical [facility] Rehabilitation Hospitaltart: 11-25-2007 SIGMOIDOSCOPYSIGMOIDOSCOPYSelect Medical [facility] Rehabilitation Hospitaltart: 91-66-7877Uxydu panelLipid ScreeningSelect Medical [facility]Health Rehabilitation Hospitaltart: 45-91-0126QEXSQ SCREENLIPID SCREENSelect Medical [facility] Rehabilitation Hospitaltart: 82-71-8298Pdziqiofu A Vaccines (1 of 2 - Risk 2-dose series) Hepatitis A Vaccines (1 of 2 - Risk 2-dose series)[facility]: 02-18-7092Ptblfricstum vaccinationPneumococcal Vaccine (1 of 2 - PCV)[facility]: 98-20-4273Kjnyz microalbumin profileDTAP,TDAP,TD (1 - Tdap)[facility]tart: 96-89-2323Ieduksn Screening Anxiety ScreeningSelect Medical [facility]Health Rehabilitation Hospitaltart: 01-80-7791Rmkvfvirnj ScreeningDepression ScreeningSelect Medical [facility] Rehabilitation Hospitaltart: 12-49-1108Tjxixrop mellitus screeningDiabetes ScreeningUnMadison Health: 98-57-6198FFIEITZST C SCREENING HEPATITIS C SCREENINGSelect Medical [facility]Health Rehabilitation Hospitaltart: 12-32-6154Xgmrdmcpt C screening Hepatitis C ScreeningUniversity Hospitals [facility]: 16-51-6823CQE SCREENINGHIV SCREENINGSelect Medical [facility] Rehabilitation Hospitaltart: 96-48-5679TGM screeningHIV ScreeningSelect Medical [facility] Rehabilitation Hospitaltart: 09-05-2068Uhswrmyhdipv Vaccine: Pediatrics (0 to 5 Years) and At-Risk Patients (6 to 64 Years) (1 of 2 - PCV)Pneumococcal Vaccine: Pediatrics (0 to 5 Years) and At-Risk Patients (6 to 64 Years) (1 of 2 - PCV)[facility]: 63-45-6383SQJ Vaccines (1 of 1 - Standard series)MMR Vaccines (1 of 1 - Standard series)[facility]: 19-02-8288Onmyxl wellness visitWelcome to Medicare Visit [facility]: 50-68-2888REM screeningHIV Screening [facility]: 39-40-7431Fneax panelLipid Panel [facility]: 49-37-3071Qssqtybqm for malignant neoplasm of colonNOMS HealthcareStart: 99-49-5567Ynjljjdqr for osteoporosisBone Density ScanUnMadison Health: 58-22-6206Msnqpf Adult PhysicalYearly Adult PhysicalUnCleveland Clinic Avon HospitalAnk brachial pressure indexKing'S Daughters Medical Center OhioBacteria identified in Cerebral spinal fluid by CultureCSF CULT + STAIN Microbiology Routine NPH (normal pressure hydrocephalus) ([facility]) Ordered: 09/13/2022[facility] Work Phone: Comment on above:Ordered: 09/13/2022acteria identified in Unspecified specimen by Aerobe cultureKing'S Daughters Medical Center OhioBacteria identified in Unspecified specimen by Anaerobe cultureKing'S Daughters Medical Center [facility] End: 14-59-6469Izjyr metabolic 2000 panel - Serum or PlasmaBasic metabolic panel Lab Routine Morning draw (Lab) for 3 Occurrences starting 04/10/2024 until , 1 completedOhioHealth Nelsonville Health Center Work Phone: Comment on above:Morning draw (Lab) for 3 Occurrences starting 04/10/2024 until 04/12/2024, 1 completed End: 78-72-5264HQG panel - Blood by Automated countCBC Lab Routine Morning draw (Lab) for 3 Occurrences starting 04/10/2024 until 04/12/2024, 1 completed [facility] Work Phone: Comment on above:Morning draw (Lab) for 3 Occurrences starting 04/10/2024 until 04/12/2024, 1 completedCell count panel - Cerebral spinal fluidCSF CELL COUNT Lab Routine NPH (normal pressure hydrocephalus) ([facility]) Ordered: 09/13/2022[facility] Work Phone: Comment on above:Ordered: 09/13/2022ell count, cerebrospinal fluidKing'S Daughters Medical Center OhioComprehensive metabolic 1999 panel - Serum or PlasmaKing'S Daughters Medical Center OhioComprehensive metabolic 2000 panel - Serum or PlasmaKing'S Daughters Medical Center [place] End: 19-85-8079Qgqnfzlddo Pulse oximetry, In Phase 1Continuous Pulse oximetry, In Phase 1 Respiratory Care Routine Continuous until discontinued starting 04/09/2024[facility] Service Area Work Phone: Comment on above:Continuous until discontinued starting 04/09/2024Enolase.neuron specific [Mass/volume] in Serum or Plasma by ImmunoassayKing'S Daughters Medical Center OhioFungus identified in Unspecified specimen by CultureKing'S Daughters Medical Center OhioGlucose [Mass/volume] in Cerebral spinal fluidKing'S Daughters Medical Center OhioGlucose [Mass/volume] in Serum or PlasmaPOCT Glucose Point of Care Testing - Docked Device Routine As needed (Lab) until discontinued starting 04/09/2024[facility] Service Area Work Phone: comment on above:As needed (Lab) until discontinued starting 04/09/2024 End: 68-92-0537Hbopvnazp spirometry InstructIncentive spirometry Instruct Respiratory Care Routine Once for 1 Occurrences starting 04/09/2024 until 04/09/2024[facility] Work Phone: Comment on above:Once for 1 Occurrences starting 04/09/2024 until 04/09/2024IR LP FOR DRAINAGE (PRESSURE)IR LP FOR DRAINAGE (PRESSURE) Radiology Routine NPH (normal pressure hydrocephalus) (HCC) Ordered: 3CUniversity [facility] Work Phone: Comment on above:Ordered: 09/13/2022 Meningitis+Encephalitis pathogens DNA and RNA panel - Cerebral spinal fluid by JER with non-probe detectionKing'S Daughters Medical Center [place] End: 13-55-3990Jsr brain brain stem w/o w/contrast materialMRI BRAIN WO/W IVCON Radiology Routine 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HCC) 1 Occurrences starting 09/20/2022 until 10/20/2023[facility] Work Phone: Comment on above:1 Occurrences starting 09/20/2022 until 4[facility] Work Phone: [facility] Work Phone: Protein [Mass/volume] in Cerebral spinal fluid [facility]: 66-31-1196Afrfxler Catheter RemovalUrethral Catheter Removal Procedures Routine Once for 1 Occurrences starting 04/09/2024 until 04/09/2024[facility] Work Phone: Comment on above:Once for 1 Occurrences starting 04/09/2024 until 04/09/2024Virus identified in Unspecified specimen by Culture [facility]: 32-26-4637FO Cervical spine 6 [facility] Work Phone: comment on above:Once for 1 Occurrences starting 02/13/2024 until 02/13/2024XR Chest 2 ViewsXR chest 2 views Imaging Routine Cervical radiculopathy Senile osteoporosis 02/13/2024 11:10 AM [facility] Work Phone: [facility] Immunizations Immunization DateImmunizationNotesCare AydrwbmyTcpeuqgt09-22-7669LIXKZ-37 Vaccine Pfizer - Documentation Purposes OnlyGriselda Hastings Other [facility] [place]07-15-2021COVID-19 Vaccine Pfizer - Documentation Purposes OnlyGriselda Hastnigs Other [facility] [place]08-08-2016KENALOG - 10 mgGriselda Hastings Other [employer] Other [id number] per 15 mgKatytt Andreas Other [employer] Other [id number] toxoid, reduced diphtheria toxoid, and acellular pertussis vaccine, adsorbedGriselda Hastings Other [employer] Other Payers DatePayer CategoryPayerPolicy [id number]-[id number] [id number] 2024Medicare [id number] [id number] Care (Private)[facility] 1.2.840.425028.1.13.647.2.7.9.865654.862794.75307-49-1874Jzoaklh Health [id number] 08.03.830.3.119418.13913372-75-4578Gxqvgbn Health InsurancePA[facility] GENERIC [id number] 2021-Present [phone] [address] [place] [address] [id number] 2019MedicaidCARESOURCE MEDICAID [facility] MEDICAID [id number] 2019-Present [phone] [address] [place] [address] [id number] [id number] 2019Medicaid1.2.840.763376.1.13.1[id number] Health Insurance1.2.840.003300.1.13.159.2.7.3.555110.03238-99-8932Upnzznc [id number] [id number] .0.716025.[id number] .1.084827.3.57[id number] 2.16.840.1.900624.3.57[id number] 2.16.840.1.443036.3.57[id number] 2.16.840.1.290122.3.579.2.36[id number] 2.16840.1.974985.3.579.2.438317-25-1635Kxeysqy715665451 2.16.840.1.246846.3.579.2.473074-09-0917Ashlqiy53330712 2.840.1.151446.3.579.2.324557-45-4316Akfarno99053339 2.840.1.617913.3.579.2.643130-27-7905Mwjuvex25531789 2.840.1.469778.3.579.2.601785-74-3779Chcwinu81115083 2.840.1.659186.3.579.2.754887-08-3973Donwsyr25896702 2.16840.1.504063.3.579.2.028925-30-3285Tcslctw09041094 2.840.1.817741.3.579.2.857655-08-0141Hqpukqw51370649 2.840.1.299167.3.579.2.679241-24-6016Oyjpqyj14612548 2.16840.1.808133.3.579.2.931866-38-8856Pembeer39541555 2.16840.1.370282.3.579.2.118011-02-3413Eroelaq59529052 2.16840.1.476679.3.579.2.300083-73-9015Qhyexgt43875298 2.16.840.1.873714.3.579.2.404871-08-8998Ywimmun998952793 2.16.840.1.554378.3.579.2.158932-96-2839Jbotbch542753371 2.16.840.1.156132.3.579.2.069771-99-3693Hzsvagk861265488 2.16.840.1.545552.3.579.2.710648-31-7409Ewecrvr01321507 2.16.840.1.580112.3.579.2.380697-34-8020Hrqizom81150955 2.16.840.1.144585.3.579.2.341495-02-7807Ogiwdan59829517 2.16840.1.817648.3.579.2.871364-03-5861Ttarvtz61329681 2.16.840.1.477864.3.579.2.220410-36-1242Lwzlfod43234917 2.16.840.1.190089.3.579.2.792616-73-6575Yjnkzds6698808 2.16.840.1.022647.3.579.2.712668-24-3271Ixakguf0784577 2.16840.1.007668.3.579.2.805101-78-8866Wnqtrfw1429435 2.16.840.1.105377.3.579.2.086627-18-1572Cutthwo6601605 2.16.840.1.323228.3.579.2.630767-88-8070Eltnoib3622170 2.16.840.1.074550.3.579.2.211904-73-0438Blevjdu540089747 2.16.840.1.613306.3.579.2.78563-88-0806Wigddzk156701951 2.0.1.002108.3.579.2.84587-12-8638Unxtctd989212776 2.0.1.185962.3.579.2.13766-14-4148Hqswfae662115326 2..1.498508.3.579.2.73626-93-4135Xvycmkf417570311 2..1.701421.3.579.2.51673-97-9290Rgrvwyo985333413 2..1.498094.3.579.2.29139-54-0976Kdqzmxs915676769 2..1.219767.3.579.2.Private Health [id number] 7ao558c8-2770-72lw-lhlj-98[id number] t68k391d-ttr7-3n25-p3j6-v8k1b11u9175Kibpeqo64920279 2..1.688449.3.579.2.766Xxaytfi82839835 2..1.755759.3.579.2.531 Nlmdnda69202767 2..1.133670.3.579.2.910Wydwbbu24205038 2..1.895423.3.579.2.847Didmsrs12826000 2..1.363103.3.579.2.531 Ppgfkna87791701 2..1.625389.3.579.2.883Cqncxya98727162 2..1.757823.3.579.2.830Uicgxwr93371815 2..1.632043.3.579.2.531 Osqsslm70082538 2..1.046162.3.579.2.531 Social History DateTypeDetailFacilityStart: 04-29-2018 End: 34-58-2688Oehhcss smoking status NHISSmoker (finding)[facility]: 34-06-8030Fvq [facility]: 32-14-0466Uohwyiu smoking status NHISEx-smokerSelect Medical [facility]Health Rehabilitation Hospitaltart: 06-18-1971 History of tobacco useCigarette SmokerSelect Medical [facility]Health Rehabilitation Hospitaltart: 10-16-2019 End: 34-70-8283Imjyvtzfct smoked current (pack per day) - Reported1.5CMercy Health Lorain Hospitaltart: 10-16-2019 End: 67-17-1094Sowdzow use and exposureSmokeless tobacco non-userSelect Medical [facility] Rehabilitation Hospitaltart: 10-14-2020 End: 67-46-7302Voagkmp intakeEx-drinker (finding)[facility]: 68-39-2693Mgclhmx SDOH Alcohol Commentquit 2002[facility]: 10-16-2019 Tobacco Commentquit smoking 01/2019[facility]: 10-41-0148Lcg [facility]igned At [facility]Not on fileSelect Medical [facility]Health Rehabilitation Hospitaltart: 10-03-2021 End: 41-50-0341Siybzayv to SARS-CoV-2 (event)Not sureSelect Medical [facility]Health Rehabilitation Hospitaltart: 07-03-2023 End: 75-05-1902Xgg [facility]igned At [facility] EnterpriseStart: 03-10-2022 End: 18-84-8007Thoxttor to SARS-CoV-2 (event)Unable to assessSelect Medical [facility] Work Phone: Start: 12-28-2022 End: 65-86-1407Abchg SmokerCEDAR CITY HOSPITAL EnterpriseStart: 50-45-4753Sjggtdt Comment6-10 cigarettes/dayNOMS HealthcareStart: 29-66-1113Ybgour identityIdentifies as male gender (finding)NOMS HealthcareStart: 00-68-2820Sxifwk orientationHeterosexual (finding)NOMS HealthcareTobacco smoking status NHISTobacco smoking consumption unknownOhio[facility] Work Phone: Start: 10-05-2023 End: 76-23-3908Ilodurnkc beverage intakeLifetime non-drinker (finding)[facility] Work Phone: adult Depression Screening Fvgnybuhqg7Kwecwuczv Clinic How often to you have a drink containing alcohol?NeverUnCleveland Clinic Avon HospitalIn the past 12 months, was there a time when you were not able to pay the mortgage or rent on time?NoOhioHealth Nelsonville Health Center Work Phone: Start: 04-28-2024 End: 21-56-6355LgsPzpg (finding)[facility] OhioNEGATED: Highlighted rowStart: NINFHistory of tobacco usePassive smokerOhioHealth Nelsonville Health Center Work Phone: Medical Equipment Procedure CodeEquipment CodeEquipment Original TextEquipment IdentifierDates Angiogram, lower extremity, leftMultiple peripheral artery stent, bare-metal ([id number] FDAStart: 81-67-8196Bhpsjdmxd, [employer]ad Lordotic 6 X 11 X 14 - [id number] - [id number]: 04-09-2024 Allograft, [employer] Lordotic 6 X 11 X 14 - [id number] - [id number]: 24-49-1706Dglit, Acp, 1.6v, 2 Level, 34mm - [id number]_louHceyk: 07-18-2556Bshsr, Acp, Self Drill, 3.5 X 17mm, Variable - [id number] Start: .5 X 19mm [id number]_cocAufsc: 21-67-4505Qplmotz on above: Description: per bill only jdr 04/10 Goals DatePatient GoalDesired Activity/StatePersonal health goal Functional Status HhuiNxdppodgltYajbdaImwsndoo08-66-2450Uanrfai Health Questionnaire 2 item (PHQ- 2) [Reported][facility] Work Phone: 1(159) 346-24140507574-97-1723EFJ-0 quick depression assessment panel [Reported.PHQ][facility] Work Phone: Clinical Notes 11-03-2008 to 03-18-2025 Note Date & UeytKsefJnpqyngt95-36-1910 History of Present illness Narrative* Oziel Cadena MD - 03/18/2025 11:30 AM [...] in all four extremities, including at least power system dispatcher, finger abductors, biceps, triceps, deltoid, toe flexors [...] received an injection of 0.5 cc of 0.50%Sensorcaine and 0.5 cc of Dexamethasone 4mg in a fan-like distribution. The needle was removed. The patient tolerated the procedure well. A Band-Aid dressing was applied on the injection site. The Procedure was done by Dr. Oziel Cadena. This note was scribed by Jocelyn Arango(Neisha) acting under the direction of Oziel Cadena MD. Thecontent has been reviewed and confirmed for accuracy by Oziel Caedna MD Assessment & Plan 1. Left shoulder pain and left brachial injections. He reports that the pain in his left shoulder wakes him up at night. He is currently on Lyrica 50 mg but experiences grogginess in the morning when taking it at night. He is advised to take Lyrica inthe morning to avoid feeling hungover or groggy. documented in this [facility]09-04-2025 Evaluation note* Author Shilpi Lantigua [facility] 2024 5:18pmSooner if needed, the ER if concerns,The above note written by Shilpi Lantigua LPN acting as human recorder, note dictated by Dr. Griselda Hastings [facility] Work Phone: 1(262) 958-545509-04-2025 Evaluation note* Author Shilpi Lantigua [facility] 2024 5:18pmSooner if needed, the ER if concerns,The above note written by Shilpi Lantigua LPN acting as human recorder, note dictated by Dr. Griselda Hastings Author Curtis Covarrubias [facility] OhioAuthoredOctober 2024 1:58pmThe above note written by YOBANI Stein acting as human recorder, note dictated by Dr.Brett Hastings. [facility] Work Phone: 1(935) 824-353208-20-2025 History of Present illness Narrative* Oziel Cadena [...] to alleviate the pain. documented in this encounterDoctors Hospital of SpringfieldGgsxiyiiri26-05-7831 Evaluation note* Diagnosis Onset Date Resolution Status Admit Date Colon polyps acuteJuly 2024 3:14pmDyspepsiaacuteJuly 2024 3:14pmGERD (gastroesophageal reflux disease)acuteJuly 2024 3:14pmAnxiety and depressionacutept2024 10:28amBurning sensationacuteSept2024 10:28amColon polypsacuteSept2024 10:28amHyperlipidemiaacute [place]ita , 2025 10:28amMedicare annual wellness visit, initialacuteFebruary 19, 2025 10:28amNicotine dependence with current useacuteFebruary 19, 2025 10:28amPAD (peripheral artery disease)acuteSept2024 10:28amScreening for prostate canceracuteSe2024 10:28am [facility] Work Phone: 1(442) 434-983207-24-2025 History of Present illness Narrative* QUENTIN Vail [...] INFLAMED SEBORRHEIC KERATOSIS Left Wrist - Anterior [place] and brown stuck on verrucous scaly papule [...] limited to risks of scarring, darker or asphalt paver operator pigmentary changes, recurrence, incomplete removal and infection. 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 [...] 1 year, skin check documented in this encounterDoctors Hospital of SpringfieldBasohhoedc72-65-2676 History of Present illness Narrative* Oziel Cadena [...] spinal cord stimulator, as suggested by his ski edge painter, and is scheduled to see his [...] injection was administered today. documented in this encounterDoctors Hospital of SpringfieldXvratsvslq21-70-8138 Evaluation note* Author Shilpi Lantigua [facility] OhioAuthoredJune 2024 2:36pmSooner if needed, the ER if concerns,The above note written by Shilpi Lantigua LPN acting as human recorder, note dictated by Dr. Griselda Hastings [facility] Work Phone: 1(306) 351-190305-28-2025 History of Present illness Narrative* Oziel Cadena [...] ezetimibe (ZETIA) 10 mg, Oral, Daily HYDROcodone-acetaminophen ([place]) 5-325 MG tablet take 1 tablet orally [...] Depression: Not at risk (11/05/2024) [facility] from [facility] PHQ-2 PHQ-2 score: 2 REVIEW OF SYMPTOMS: [...] Ana Luisa's absent. Ankle clonus absent. Coordination Jmwfrm-nh-ykez, rapid alternating movements and tzor-be-vxqm normal bilaterally without dysmetria. Gait Normal casual, [...] the injections if needed. documented in this [facility]05-23-2025 NoteHNO ID: [id number] Author: RACQUEL COLE MD Service: ? Author Type: Physician Type: Progress Notes Filed: 11/07/2024 11:09 Note Text: NAME: Shantel Melendez CLINIC NO.: [id number] DATE OF SERVICE: November 07, 2024 (Curtis) Some elements in this clinic note that are critical to medical decision making have been carefully reviewed and included from a prior clinic note dated: November 02, 2023 (Curtis) Referring Provider: Griselda Hastings, DO Additional Clinicians involved in Shantel Melendez's care: Dr Kimberly Nichole ENT, Dr. 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 10/05/2021 - MRI Brain: [facility] There is T2 and [...] microvascular ischemic change. Brainst (more content not included)...[facility]05-19-2025 History of Present illness Narrative* [...] PATIENT PRESENTS WITH AN IMPLANTABLE OR ATTACHED MORTAR CARRIER: No RADIOLOGY DEPARTMENT: CT; Exam(s) Completed: Chest and Neck PERIPHERAL IV DATA: Site assessment: Clean,Dry and Intact, Site disposition Discontinued SIGNED BY: RT Craig(R) November 03, 2024 8:32 AM documented in this encounterSelect Medical [facility]05-19-2025 NoteHNO ID: [id number] Author: CURTIS DA SILVA RN Service: ? [...] Melendez DATE: November 03, 2024 TIME: 8:13 [facility]05-19-2025 NoteHNO ID: [id number] Author: SALLY DOYLE RT(R) Service: ? Author [...] PATIENT PRESENTS WITH AN IMPLANTABLE OR ATTACHED MORTAR CARRIER: No RADIOLOGY DEPARTMENT: CT; Exam(s) Completed: Chest and Neck PERIPHERAL IV DATA: Site assessment: Clean,Dry and Intact, Site disposition Discontinued SIGNED BY: RT Craig(R) November 03, 2024 8:32 [facility]05-19-2025 Telephone encounter Note* Telephone Encounter - Curtis Da Silva RN - 11/03/2024 7:49 AM EDT Please sign pended labs for 1 year f/u-will draw with CT today Thank You! Curtis Da Silva RN [facility]05-19-2025 Miscellaneous Notes* Telephone Encounter - Curtis Da Silva RN - 11/03/2024 7:49 AM EDT Please sign pended labs for 1 year f/u-will draw with CT today Thank You! Curtis Da Silva, RN documented in this encounterSelect Medical [facility]04-28-2025 History of Present illness Narrative* Doretha Harris [...] assess the C7 screw. Doretha Harris MD [employer] Plant Operator of Neurosurgery [facility] Neuroscience ICU Office: [phone] [1] Past Surgical History: Procedure Laterality Date [...] 60 capsule, Rfl: 0 documented in this [facility] Work Phone: 1(905) 762-787904-21-2025 Radiology Diagnostic study [facility]REG[facility]Y [place] [address] [place] Scan Report Signed Patient: Shantel Melendez MR#: [id number] : 1960 Acct:[id number] Age/Sex: 63 / M ADM Date: 5 Loc: ER Room: Type: [facility] ER Attending Dr: Copies to: Manisha Negron [...] Dorothy Eubanks M.D.10/06/2024 4:08 PM Dictation Location: [place] [address] Transcribed By: MARISA 10/06/24 4697 Dictated By: Dorothy Eubanks MD 10/06/24 1550 Signed By: 10/06/24 3849 [facility] Work Phone: 1(236) 702-475704-21-2025 Radiology Diagnostic study noteREGENCY [facility] [place] [address] [place] [address] CT Scan Report Signed Patient: Shantel Melendez MR#: [id number] : 1960 Acct:[id number] Age/Sex: 63 / M ADM Date: 5 Loc: ER Room: Type: [facility] ER Attending Dr: Copies to: Manisha Negron [...] Dorothy Eubanks M.D.10/06/2024 3:56 PM Dictation Location: [place] [address] Transcribed By: [facility] 10/06/241555 Dictated By: Dorothy Eubanks MD 10/06/241550 Signed By: 10/06/241555 [facility] Work Phone: 1(351) 261-121703-27-2025 Evaluation note* Diagnosis Onset Date Resolution Status Admit Date Current every day smoker acuteMarch 2024 8:53amPAD (peripheral artery disease)acuteMarch 2024 8:53amRight leg claudicationacuteMar2024 8:53am [facility] Work Phone: 1([phone]) 819-271003-27-2025 Evaluation note* Diagnosis Onset Date Resolution Status Admit Date Current every day smoker acuteMar2024 8:53amPAD (peripheral artery disease)acuteMarch 2024 8:53amRight leg claudicationacuteMarch 2024 8:53amCardiac arrhythmiaacute October 27, 2024 9:37amEssential hypertensionacuteMay 2024 9:37am HyperlipidemiaacuteMa2024 9:37amGlioma of braindel2024 9:37amPAD (peripheral artery disease)deletedOctober 27, 2024 9:37am [facility] Work Phone: 1(820) 939-584903-27-2025 Evaluation note* Diagnosis Onset Date Resolution Status Admit Date Current every day smoker acuteMarch 2024 8:53amPAD (peripheral artery disease)acuteMar2024 8:53amRight leg claudicationacuteMarch 2024 8:53amAbdominal painacute October 10, 2024 1:02pmChange in bowel habitsacuteApr2024 1:02pm DiarrheaacuteApr2024 1:02pmDysphagiaacuteApril 2024 1:02pmEarly satietyacuteApril 2024 1:02pmUnexplained weight lossacuteApr2024 1:02pmCardiac arrhythmiaacuteMay 2024 9:37amEssential hypertensionacuteMay 2024 9:37amHyperlipidemiaacuteMay 2024 9:37amGlioma of braindeleted October 27, 2024 9:37amPAD (peripheral artery disease)deletedOctober 27, 2024 9:37am Abdominal painacuteJune 2024 1:57pmChange in bowel habitsacuteJune 2024 1:57pmDiarrheaacuteJune 2024 1:57pmDysphagiaacuteJune 2024 1:57pm [facility] Work Phone: 1([phone]) 205-541903-27-2025 Evaluation note* Diagnosis Onset Date Resolution Status Admit Date Current every day smoker acuteMarch 2024 8:53amPAD (peripheral artery disease)acuteMarch 2024 8:53amRight leg claudicationacuteMarch 2024 8:53amAbdominal painacute October 10, 2024 1:02pmChange in bowel habitsacuteApril 2024 1:02pm DiarrheaacuteApril 2024 1:02pmDysphagiaacuteApril 2024 1:02pmEarly satietyacuteApril 2024 1:02pmUnexplained weight lossacuteApr2024 1:02pmCardiac arrhythmiaacuteMay 2024 9:37amEssential hypertensionacuteMay 2024 9:37amHyperlipidemiaacuteMay 2024 9:37amGlioma of braindeleted October 27, 2024 9:37amPAD (peripheral artery disease)deletedOctober 27, 2024 9:37am Abdominal painacuteJune 2024 1:57pmChange in bowel habitsacuteJune 2024 1:57pmDiarrheaacuteJune 2024 1:57pmDysphagiaacuteJune 2024 1:57pm RSV (respiratory syncytial virus infection)acuteJune 2024 2:26pm [facility] Work Phone: 1([phone]) 196-424903-27-2025 History of Present illness Narrative* Oziel Cadena [...] ezetimibe (ZETIA) 10 mg, Oral, Daily HYDROcodone-acetaminophen ([place]) 5-325 MG tablet take 1 tablet orally [...] Not at risk (06/30/2024) [facility] PHQ-2 Patient Health Questionnaire-2 Score: 2 [...] Ana Luisa's absent. Ankle clonus absent. Coordination Dwwnmb-lk-bcxe, rapid alternating movements and wesu-kv-pxiu normal bilaterally without dysmetria. Gait Normal casual, [...] needed. documented in this encounterDoctors Hospital of SpringfieldVuoyqhvaah00-35-7692 History of Present illness Narrative* Oziel Cadena [...] ezetimibe (ZETIA) 10 mg, Oral, Daily HYDROcodone-acetaminophen ([place]) 5-325 MG tablet take 1 tablet orally [...] Not at risk (06/30/2024) Received from [facility] PHQ-2 Patient Health Questionnaire-2 Score: 2 [...] the injections if needed. documented in this [facility]01-16-2025 Evaluation note* Author Shilpi Lantigua [facility] OhioAuthoLaird Hospitaluary 2024 4:44pmSooner if needed, the ER if concerns,The above note written by Shilpi Lantigua LPN acting as human recorder, note dictated by Dr. Griselda Hastings [facility] Work Phone: 1(341) 544-255801-15-2025 History of Present illness Narrative* Oziel Cadena [...] ezetimibe (ZETIA) 10 mg, Oral, Daily HYDROcodone-acetaminophen ([place]) 5-325 MG tablet take 1 tablet orally [...] Not at risk (06/30/2024) Received from [facility] PHQ-2 Patient Health Questionnaire-2 Score: 2 [...] time. documented in this encounterDoctors Hospital of SpringfieldMkwslhtyzx14-94-2693 History of Present illness Narrative* Doretha Harris [...] another set of XR. Doretha Harris MD [employer] Plant Operator of Neurosurgery [facility] Neuroscience ICU Office: [phone] Scribe Attestation By signing my name below, I, Shira Sen, Scribe, attest that this documentation has been preparedunder the direction and in the presence of Doretha Harris MD. documented in this [facility] Work Phone: 1(379) 582-441712-04-2024 History of Present illness Narrative* Oziel Cadena [...] ezetimibe (ZETIA) 10 mg, Oral, Daily HYDROcodone-acetaminophen ([place]) 5-325 MG tablet take 1 tablet orally [...] Not at risk (04/09/2024) Received from [facility] PHQ-2 Patient Health Questionnaire-2 Score: 0 [...] needed. documented in this encounterDoctors Hospital of SpringfieldRuavsoacpd78-74-5300 History of Present illness Narrative* Solomon Narayanan PA-C - 04/30/2024 1:00 PM EST Images from the original note were not included. [facility] Department of Neurological Surgery Post Operative Patient [...] CAD (coronary artery disease) Peripheral vascular disease ([facility]) Past Medical History: Diagnosis Date Anxiety Cataract s/p excision of left Cervical radiculopathy Chronic pain disorder Coronary artery disease Depression Dysphagia thin liquids Hypertension NPH (normal pressure hydrocephalus) ([facility]) PAD (peripheral artery disease) ([facility]) s/p stent (05/2023) on ASA 81mg Peripheral vascular disease ([facility]) Pontine lesion watchful waiting Pulmonary nodule Skin cancer of scalp s/p excsison Spinal stenosis severe cervical stenosis, left sided foraminal stenosis at C5-6 and C6-7 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 Tongue cancer ([facility]) s/p resection Vision loss Past [...] directly. Sincerely, RICH Hernandez PA-C Associate Physician Patient Transport Officer, Neurosurgery Clinical [employer] Plant Operator [facility] [place] [address] documented in this [facility] Work Phone: [phone] Evaluation note* Diagnosis Onset Date Resolution Status Admit Date Cardiac arrhythmia acuteNovember 2023 9:39amEssential hypertensionacuteNov2023 9:39amHyperlipidemiaacuteNovember 2023 9:39amGlioma of braindeleted April 28, 2024 9:39amPAD (peripheral artery disease)deletedNovember 2023 9:39amHyperlipidemiaacuteJanuary 2024 9:23amS/P cervical discectomy acuteJanuary 2024 9:23amScreening for prostate canceracuteJanuary 2024 9:23am [facility] Work Phone: [phone]) 845-953510-24-2024 Hospital course Narrative* Aaron Gallo PA-C - [...] HYDROcodone-acetaminophen 5-325 mg tablet; Commonly known as: [place] tiZANidine 4 mg capsule; Commonly known as: Zanaflex Outpatient Follow-Up Future Appointments Date Time Provider Department Center 04/30/2024 1:00 PM Solomon Narayanan PA-C [id number] [place] 05/02/2024 9:00 AM [facility] [place] 05/02/2024 10:00 AM Helder Jack MD [id number] [facility] 06/30/2024 9:00 AM Doretha Harris MD [id number] [place] Aaron Gallo PA-C documented in this [facility] Work Phone: [phone]) 116-416010-24-2024 History of Present illness Narrative* Nikole Lezama PharmD - 04/10/2024 12:11 PM EDT Pharmacy Medication History Review Shantel Melendez is a 63 y.o. male admitted for Cervical radiculopathy. Pharmacy reviewed the patient's yuwse-xs-ntwdhdkkj medications and allergies for accuracy. Medications ADDED: norco Medications CHANGED: Tizanidine nightly to as needed Medications REMOVED: Diamox Albuterol The list below reflects the updated [employer]CH[employer] list. Prior to Admission Medications Prescriptions Last Dose Informant HYDROcodone-acetaminophen (Paterson) 5-325 mg tablet Self Sig: Take 1.5 [...] Report Patient interview (good historian-required some prompting) [facility] medical note 01/29 Additional Comments: none Nikole Lezama PharmD Transitions of Care Pharmacist 04/10/24 Secure Chat preferred If no response call [phone] or VocPristones Med Rec * Tori Johnson OT - 04/10/2024 11:57 AM EDT Occupational Therapy Evaluation Patient Name: Shantel Melendez Today's Date: 04/10/2024 Room: [address] [place] [address] Time Calculation Start Time: 1019 Stop Time: [...] bars in shower Prior Function: Level of [place]: Independent with ADLs and functional transfers, Independent with homemaking with ambulation ADL Assistance: Independent Homemaking Assistance: Independent Ambulatory Assistance: Independent 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, 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 [...] LUE LUE: Within Functional Limits Outcome Measures: [facility] Daily Activity Putting on and taking [...] 11:57 AM TORI JOHNSON OT Rehab Office: [phone] * Tia Caceres, PT - 04/10/2024 10:33 AM EDT Physical Therapy Physical Therapy Evaluation Patient Name: Shantel Melendez Department: [place] [address] Room: [address] [place] [address] Today's Date: 04/10/2024 Time Calculation Start Time: 919 Stop Time: 51 Time Calculation (min): 31 min Assessment/Plan PT [...] Prior Function Per Pt/Caregiver Report Level of Call[place]: (independent ambulation in/outdoors no device, independent stairclimbing as needed, no falls) ADL Assistance: Independent Homemaking Assistance: Independent Ambulatory Assistance: Independent 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 documented in this [facility] Work Phone: [phone]) 854-718510-23-2024 Plan of care note* Care Plan - [...] for the shift include pain management. [facility] Work Phone: [phone]) 558-488510-23-2024 Miscellaneous Notes* Care Plan - Elizabeth Esposito [...] (B) Operative Note Date: 04/09/2024 OR Location: [facility] OR Name: Shantel Melendez, : 1960, Age: 63 y.o., , Sex: male Diagnosis Pre-op Diagnosis * Cervical radiculopathy [M54.12] * Senile osteoporosis [M81.0] Post-op Diagnosis * Cervical radiculopathy [M54.12] * Senile osteoporosis [M81.0] Procedures Fusion Spine Anterior Cervical and Discectomy C5-6, C6-7 37411 - AR ARTHRD ANT INTERBODY DECOMPRESS CERVICAL BELW C2 AR ARTHRD ANT INTERBODY DECOMPRESS CERVICAL BELW C2 [34392] AR ARTHRD ANT INTERDY CERVCL BELW C2 EA ADDL NTRSPC [55967] AR ALLOGRAFT FOR SPINE SURGERY ONLY STRUCTURAL [] AR MICROSURG TQS REQ USE OPERATING MICROSCOPE [82817] Surgeons * Doretha Harris - Primary Resident/Fellow/Other Patient Transport Officer: Surgeons and Role: * Chicho Bryan MD [...] 85 mL Specimen: No specimens collected Staff: Pipe Joints Supervisor: Derrell Scrub Person: Beverly Scrub Person: Shaina Drains and/or Catheters: Closed/Suction Drain 1 Neck Bulb 10 Fr. (Active) Urethral Catheter Double-lumen;Non-latex 16 Fr. (Active) Tourniquet Times: Implants: Implants Type Name Action Serial No. Spinal Hardware SCREW, DISTRACTION, 14 MM - [id number] Used, Not Implanted Spinal Hardware ALLOGRAFT, TRIAD LORDOTIC 6 X 11 X 14 - [id number] - [id number] Implanted [id number] Spinal Hardware ALLOGRAFT, TRIAD LORDOTIC 6 X 11 X 14 - [id number] - [id number] Implanted [id number] Spinal Hardware PLATE, ACP, 1.6V, 2 LEVEL, 34MM - [id number] Implanted Spinal Hardware SCREW, ACP, SELF DRILL, 3.5 X 17MM, VARIABLE - [id number] Implanted 3.5 X 19MM SCREW Implanted Findings: [...] then placed our self-retaining retractor in and [place] pins in and placed the disc space [...] 04/09/2024 4:50 PM EDT documented in this [facility] Work Phone: [phone] 942-325410-23-2024 Nurse Note* Shantelle Pacheco RN - 04/09/2024 7:03 PM EDT Patient transferred from PACU to [facility] via stretcher in stable condition. Patient oriented to room, bed, and call light. Skin assessment witnessed by Brianda Dowling RN. Will continue to monitor. [facility]10-23-2024 Nurse Note* Shantelle Pacheco RN - 04/09/2024 7:03 PM EDT Patient transferred from PACU to [id number] via stretcher in stable condition. Patient oriented to room, bed, and call light. Skin assessment witnessed by Brianda Dowling RN. Will continue to monitor. documented in this [facility] Work Phone: [phone]) 520-490610-23-2024 Hospital Note* Hospital Course - Aaron Gallo PA-C - 04/09/2024 5:04 PM EDT 63M h/p HTN, CAD, PAD s/p stent on ASA81, pontine glioma, tongue cancer p/w LUE radiculopathy, 04/09 s/p C5-7 ACDF 04/10 PT/OT DC recs no needs, post operative xray shows good position, Drain removed [facility] Work Phone: [phone] Note* Op Note - Chicho Bryan MD - 04/09/2024 2:30 PM EDT Fusion Spine Anterior Cervical and Discectomy C5-6, C6-7 (B) Operative Note Date: 04/09/2024 OR Location: [facility] OR Name: Shantel Melendez, : 1960, Age: 63 y.o., , Sex: male Diagnosis Pre-op Diagnosis * Cervical radiculopathy [M54.12] * Senile osteoporosis [M81.0] Post-op Diagnosis * Cervical radiculopathy [M54.12] * Senile osteoporosis [M81.0] Procedures Fusion Spine Anterior Cervical and Discectomy C5-6, C6-7 77460 - AR ARTHRD ANT INTERBODY DECOMPRESS CERVICAL BELW C2 AR ARTHRD ANT INTERBODY DECOMPRESS CERVICAL BELW C2 [32953] AR ARTHRD ANT INTERDY CERVCL BELW C2 EA ADDL NTRSPC [98940] AR ALLOGRAFT FOR SPINE SURGERY ONLY STRUCTURAL [37128] AR MICROSURG TQS REQ USE OPERATING MICROSCOPE [09477] Surgeons * Doretha Harris - Primary Resident/Fellow/Other Patient Transport Officer: Surgeons and Role: * Chicho Bryan MD - Resident - Assisting * Rojas Edwards MD - Resident - Assisting Procedure Summary Anesthesia: General ASA: III Anesthesia Staff: Anesthesiologist: Fred Cheek MD C-AA: Shelly Mullins Capp [facility]; NAVEEN Reddy IVONE: Jamee Woodall [...] 85 mL Specimen: No specimens collected Staff: Pipe Joints Supervisor: Derrell Scrub Person: Beverly Scrub Person: Shaina Drains and/or Catheters: Closed/Suction Drain 1 Neck Bulb 10 Fr. (Active) Urethral Catheter Double-lumen;Non-latex 16 Fr. (Active) Tourniquet Times: Implants: Implants Type Name Action Serial No. Spinal Hardware SCREW, DISTRACTION, 14 MM - [id number] Used, Not Implanted Spinal Hardware ALLOGRAFT, TRIAD LORDOTIC 6 X 11 X 14 - [id number] - [id number] Implanted [id number] Spinal Hardware ALLOGRAFT, TRIAD LORDOTIC 6 X 11 X 14 - [id number] - [id number] Implanted [id number] Spinal Hardware PLATE, ACP, 1.6V, 2 LEVEL, 34MM - [id number] Implanted Spinal Hardware SCREW, ACP, SELF DRILL, 3.5 X 17MM, VARIABLE - [id number] Implanted 3.5 X 19MM SCREW Implanted Findings: [...] then placed our self-retaining retractor in and [place] pins in and placed the disc space [...] MD at 04/09/2024 4:50 PM EDT [facility] Work Phone: [phone]) 231-209710-23-2024 Attending History and physical note* Rojas Edwards MD - 04/09/2024 12:22 PM EDT H&P reviewed. The patient was examined and there are no changes to the H&P. Cosigned by Doretha Harris MD at 04/09/2024 12:53 PM EDT Source Note - Rick Mckinney APRN-EYE DROPPER ASSEMBLER - 03/26/2024 10:30 AM EDT Images from [...] pressure hydrocephalus) (Multi) PAD (peripheral artery disease) ([facility]) s/p stent (05/2023) on ASA 81mg Peripheral vascular disease ([facility]) Pontine lesion watchful waiting Pulmonary nodule Skin [...] mg) by mouth once daily at bedtime. HistoricalProMD leigh ann PAT ROS: Constitutional: neg Neuro/Psych: LUE weakness [...] Flowsheet Row Pre-Admission Testing from 02/11/2024 in [facility] Questionnaire Series Submission from 02/06/2024 in [facility] with Generic Provider Laura Can [...] 2.75 filed at 02/11/20248 2.75 filed at Can you climb a flight of stairs or walk up a hill? 5.5 filed at 02/11/20248 5.5 filed at 02/06/2024 003 Can you run a short distance? 0 filed at 02/11/2024 1418 8 filed at 02/06/2024 003 Can you do light work around the house like dusting or washing dishes? 2.7 filed at 02/11/2024 91346.7 filed at 02/06/2024 003 Can you do [...] or pushing a mower? 0 filed at 02/11/20248 4.5filed at 02/06/202431 Can you have sexual [...] Flowsheet Row Pre-Admission Testing from 02/11/2024 in [facility] DVT Score 11 filed at 02/11/2024 1506 BMI 30 or less filed at 02/11/2024 1506 RETIRED: Current Status Major surgery planned, lasting over 3 hours filed at 02/11/2024 1506 RETIRED: History Prior major surgery, Previous malignancy filed at 02/11/2024 1506 RETIRED: Age 60-75 years filed at 02/11/2024 1506 Modified Frailty Index Flowsheet Row Pre-Admission Testing from 02/11/2024 in [facility] Non-independent functional status (problems with dressing, bathing, personal grooming, or cooking) 0 filed at 02/11/2024 1505 History of diabetes mellitus 0 filed at 02/11/2024 1505 History of COPD 0 filed at 02/11/2024 1505 History of CHF No filed at 02/11/2024 1505 History of NM 0 filed at 02/11/2024 1505 History of [...] Flowsheet Row Pre-Admission Testing from 02/11/2024 in [facility] High-Risk Surgery (Intraperitoneal, Intrathoracic,Suprainguinal vascular) 0 filed at 02/11/2024 1505 History of ischemic heart disease (History of NM, History of positive exercuse test, Current chest [...] Flowsheet Row Pre-Admission Testing from 02/11/2024 in [facility] Smoking status 0 filed at 02/11/2024 1506 [...] Flowsheet Row Pre-Admission Testing from 03/26/2024 in [facility] Pre-Admission Testing from 02/11/2024 in [facility] Do you snore loudly? 0 filed at [...] Yellow, Dark-Yellow Appearance, Urine Clear Clear Specific [place], Urine 1.007 1.005 - 1.035 pH, Urine [...] Rate 63 BPM Atrial Rate 63 BPM AR Interval 268 ms QRS Duration 74 ms QT Interval 406 ms QTC Calculation(Bazett) 415 ms P [place] 58 degrees R [place] -3 degrees T [place] 18 degrees QRS Count 10 beats Q [...] given to patient. Neurosurgery: Doretha Harris MD [facility] 01/03/24 seen for cervical radiculopathy. Neurosurgery: Jose Cruz Khan MD [facility] 11/05/23- [facility] seen for cervical stenosis of spine. 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 HEENT/Airway The patient has history of selective right neck dissection (II-V) and bilateral base of tongue/linguial tonsillar excision on 01/30/[address] 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 Currently with limited neck extension. No documented or reported history of airway difficulty. HemOnc: Racquel Cole MD [facility] 11/02/23-[facility] seen for head and neck cancer. Cardiovascular [...] Cardiology Evaluation Cardiology: Lilliam Cason MD - [facility] (see media tab for last office [...] understanding ofpreoperative instructions. After Visit Summary given. [facility] Work Phone: 1(667) 723-577410-23-2024 History and physical note* Rojas Edwards MD [...] pressure hydrocephalus) (Multi) PAD (peripheral artery disease) ([facility]) s/p stent (05/2023) on ASA 81mg Peripheral [...] Father Throat cancer Father Allergies Allergen Reactions Kefljama Hivarlen Prior to Admission medications Medication Sig Start [...] Flowsheet Row Pre-Admission Testing from 02/11/2024 in [facility] Questionnaire Series Submission from 02/06/2024 in [facility] with Generic Provider Laura Can [...] or washing dishes? 2.7 filed at 02/11/2024 74739.7 filed at 02/06/2024 003 Can you do [...] Flowsheet Row Pre-Admission Testing from 02/11/2024 in [facility] DVT Score 11 filed at 02/11/2024 1506 BMI 30 or less filed at 02/11/2024 1506 RETIRED: Current Status Major surgery planned, lasting over 3 hours filed at 02/11/2024 1506 RETIRED: History Prior major surgery, Previous malignancy filed at 02/11/2024 1506 RETIRED: Age 60-75 years filed at 02/11/2024 1506 Modified Frailty Index Flowsheet Row Pre-Admission Testing from 02/11/2024 in [facility] Non-independent functional status (problems with dressing, bathing, personal grooming, or cooking) 0 filed at 02/11/2024 1505 History of diabetes mellitus 0 filed at 02/11/2024 1505 History of COPD 0 filed at 02/11/2024 1505 History of CHF No filed at 02/11/2024 1505 History of NM 0 filed at 02/11/2024 1505 History of [...] Flowsheet Row Pre-Admission Testing from 02/11/2024 in [facility] High-Risk Surgery (Intraperitoneal, Intrathoracic,Suprainguinal vascular) 0 filed at 02/11/2024 1505 History of ischemic heart disease (History of NM, History of positive exercuse test, Current chest [...] Flowsheet Row Pre-Admission Testing from 02/11/2024 in [facility] Smoking status 0 filed at 02/11/2024 1506 [...] Flowsheet Row Pre-Admission Testing from 03/26/2024 in [facility] Pre-Admission Testing from 02/11/2024 in [facility] Do you snore loudly? 0 filed at [...] Yellow, Dark-Yellow Appearance, Urine Clear Clear Specific [place], Urine 1.007 1.005 - 1.035 pH, Urine [...] Rate 63 BPM Atrial Rate 63 BPM AR Interval 268 ms QRS Duration 74 ms QT Interval 406 ms QTC Calculation(Bazett) 415 ms [address] [place] 58 degrees R [place] -3 degrees T [place] 18 degrees QRS Count 10 beats Q [...] given to patient. Neurosurgery: Doretha Harris MD [facility] 01/03/24 seen for cervical radiculopathy. Neurosurgery: Jose Cruz Khan MD [facility] 11/05/23- [facility] seen for cervical stenosis of spine. 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 HEENT/Airway The patient has history of selective right neck dissection (II-V) and bilateral base of tongue/linguial tonsillar excision on 01/30/[address] 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 Currently with limited neck extension. No documented or reported history of airway difficulty. HemOnc: Racquel Cole MD [facility] 11/02/23-[facility] seen for head and neck cancer. Cardiovascular [...] Cardiology Evaluation Cardiology: Lilliam Cason MD - [facility] (see media tab for last office [...] Visit Summary given. documented in this [facility] Work Phone: 1(167) 554-181410-15-2024 Evaluation note* Author Nida Humphreys [facility] OhioAuthoredOctober 2023 10:01amThe above note written by Nida Humphreys LPN, acting as human recorder, note dictated by Dr. Griselda Hastings. [facility] Work Phone: 1(482) 824-593508-15-2024 Evaluation note* Author Nida [facility] HospitalAuthoredAugust 2023 10:40amThe above note written by Nida Humphreys LPN, acting as human recorder, note dictated by Dr. Griselda Hastings. Author Nida [facility] HospitalAuthoredOctober 2023 11:01amThe above note written by Nida Humphreys LPN, acting as human recorder, note dictated by Dr. Griselda Hastings. [facility] Work Phone: 1(382) 122-418007-18-2024 History of Present illness Narrative* Doretha Harris [...] bone stimulator after surgery. Doretha Harris MD [employer] Operator of Neurosurgery [facility] Neuroscience ICU Office: [phone] Scribe Attestation By signing my name below, I, Parisa Cabrera , Scribe attest that this documentation has been prepared under the direction and in the presence of MD Shirley. documented in this [facility] Work Phone: 1(796) 542-587506-27-2024 History of Present illness Narrative* Helder Jack MD - 12/13/2023 10:00 AM EDT Patient ID: Shantel Melendez is a 63 y.o. male. Referring Physician: Shimon Heaton PA-C [id number] [place] [address] Primary Care Provider: Griselda Hastings DO Subjective [...] Dr. Lara at the [facility]. Also pain behind left eye. [...] issues. 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 INTERVAL HISTORY (12/13/2023): Since the last visit, he continues to have severe neck pain, which isslowly getting worse, along with some muffled hearing on the left side. He tried going back to parttime work, but the activity made the neck pain much more severe. He saw a Neurosurgeon at [facility] about the cervical stenosis, but he was unwilling to consider surgery for the neck due to the pontine lesion. He has now been to see a Neurosurgery PA (Solomon Narayanan) at [facility] about the neck, who thought surgical decompression was reasonable. He will see the Neurosurgeon soon to discuss the possible surgery. He has had some Botox injections into the neck and associated muscles, and has some steroid injections due next week. He tried some test shots for an Ablation procedure, but they were too painful. The ROS is as per documentation in the [facility]. Objective BSA: There is no height [...] Nate Benavidez 12/13/2023 9:38 AM Dictation workstation: [id number] Impression 1. Abnormal increased T2 signal in [...] undergo a new MRI brain at [facility]. -I spent > 40 minutes in face to face consultation to review and discuss the above; 50% of whichor more was dedicated to counseling. Helder Jack MD documented in this encounterUnC[facility] Work Phone: 1(218) 758-605306-27-2024 Instructions* Patient Instructions* Alondra Escamilla RN - 12/13/2023 10:00 AM EDT Your next appointment will be in 5 months. Please schedule your MRI prior to this visit. Please contact [phone] option 5 then option 2 with any questions or concerns. For any scheduling concerns please call [phone] option 1 documented in this encounterOhioHealth [facility] Work Phone: 1(329) 886-275106-26-2024 History of Present illness Narrative* Solomon Narayanan PA-C - 12/12/2023 1:00 PM EDT Images from the original note were not included. 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 Sincerely, RICH Hernandez PA-C Associate Physician Patient Transport Officer, Neurosurgery Clinical [employer]roleum Terminal Plant Operator [facility] [place] [address] documented in this [facility] Work Phone: 1(391) 139-951505-17-2024 Instructions* Patient Instructions* Racquel Cole MD - 11/02/2023 10:13 AM EDT Scans and labs in 1 year RTC 1 week after documented in this encounterSelect Medical [facility] History of Present illness Narrative* Racquel Cole MD - 11/02/2023 9:45 AM EDT Images from the original note were not included. NAME: Shantel Melendez [facility] NO.: [id number] DATE OF SERVICE: November 02, 2023 ([email or web address]) Some elements in this clinic note that are critical to medical decision making have been carefully reviewed and included from a prior clinic note dated: November 03, 2022 ([place]urtis). Referring Provider: Griselda Hastings, DO Additional Clinicians involved in Shantel Melendez's care: Dr Kimberly Nichole ENT, Dr. Ibarra [place] surgery [facility] DIAGNOSIS: Head and neck cancer ASSESSMENT: [...] 1.8 mm of invasive disease (Stage I, [id number], HPV+ oropharyngeal SCC).resected T1 N1 base of [...] adenopathy is identified. 10/05/2021 - MRI Brain: [facility] There is T2 and [...] respiratory bronchiolitis. 01/30/2019 - Neck dissection at [facility] Base of tongue did note a [...] 2020: Doing well, still smokes, works at [employer]. Reviewed scans and there is no evidence [...] which included preparing to see the patient, [id number] patient care, completing clinical documentation, performing a medically appropriate examination, counseling and educating the patient/family/caregiver, ordering medications, tests, or p rocedures, independently interpreting results (not separately reported), communicating results to the patient/family/caregiver, and care coordination (not separately reported). Racquel Cole MD, CPE Hematology and Oncology Services Provided at: [facility], [place], [place] Scribe Attestation: This note was scribed [...] under my direction. CC: Griselda Hastings, DO [address] [id number] [address] [place] ENT[address] Dr[address] Nichole ENT Dr. Ibarra CT surgery [facility]. documented in this encounterSelect Medical [facility]05-[facility] Evaluation note* Author Shilpi Lantigua [facility] [facility]AuthoredMay 2023 10:32amSooner if needed, the ER if concerns,The above note written by Shilpi Lantigua LPN acting as human recorder, note dictated by Dr. Griselda Hastings [facility] Work Phone: 1(148) 601-141805-10-2024 History of Present illness Narrative* Curtis Da [...] PATIENT PRESENTS WITH AN IMPLANTABLE OR ATTACHED MORTAR CARRIER: No RADIOLOGY DEPARTMENT: CT; Exam(s) Completed: Chest and Neck PERIPHERAL IV DATA: Site assessment: Clean,Dry and Intact, Site disposition Discontinued SIGNED BY: RT Craig(R) October 26, 2023 10:07 AM documented in this encounterSelect Medical [facility]-19-[facility] History of Present illness Narrative* Helder Jack MD - 10/05/2023 9:30 AM EDT Patient ID: Shantel Melendez is a 62 y.o. male. Referring Physician: No referring provider defined for this encounter. Primary Care Provider: Griselda R Kuns, DO Subjective History of Present Ilness: 62 y.o. presents in neurosurgical consultation from [facility] for cervical stenosis.C/o neck pain and LUE pain, numbness and weakness down to hand for 2 years. SawNeurosurgeon at and has had 2 spinal taps with some improvement. Went to [facility] to be assessed for hydrocephal;us and was told he does not have hydrocephalus. He saw Dr. Lara at the [facility]. Also pain behind left eye. [...] issues. 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 The ROS is as per documentation in the [facility]. Objective BSA: 1.93 meters squared Ht [...] Helder Jack MD documented in this encounterOhioHealth [facility] Work Phone: 1(509) 828-869104-19-2024 Instructions* Patient Instructions* Adriana Thomas RN - 10/05/2023 9:[address] Jack will present your case at Tumor Board next Sunday. Someone from the office will call you that day or about your plan. Please call us with any questions or concerns at [phone] opt. 5, opt. 2 For scheduling concerns please call [phone] option 1 documented in this encounterOhioHealth [facility]ville [facility] Center Work Phone: 1(954) 703-240902-28-2024 Evaluation note* Author Curtis Covarrubias [facility] 2023 5:19pmThe above note written by Sue Flood acting as human recorder, note dictated by Dr. Griselda Hastings . [facility] Work Phone: 1(465) 744-741102-28-2024 Evaluation note* Author Curtis Covarrubias [facility] 2023 5:19pmThe above note written by Sue Flood acting as human recorder, note dictated by Dr. Griselda Hastings . Author Shilpi Lantigua [facility]AuthoredMay 2023 10:32amSooner if needed, the ER if concerns,The above note written by Shilpi Lantigua LPN acting as human recorder, note dictated by Dr. Griselda Hastings [facility] Work Phone: 1(177) 383-568101-15-2024 Evaluation note* Encounter Date Diagnosis Assessment Notes Treatment Notes Treatment Clinical Notes Jun, Acute cough (ICD-10 - R05.1) In house covid, flu, strep and rsv test was negative. I did prescribe the above medication and encouraged pt to increase fluid intake, throat lozenges or gargle with mouth wash as needed. Pt is to also take OTC pain medication and fever reducers as needed. Jun,hest congestion (ICD-10 - R09.89) In apex covid, flu, strep and rsv test was negative. Jun,nxiety and depression (ICD-10 - F41.8) Patient has voiced improvement with the above medication. I did provide the patient with more samples. Jun,cute pain of left shoulder (ICD-10 - M25.512) Toradol injection administered in the office today. Jun,Essential hypertension (ICD-10 - I10) The patients blood pressure was elevated upon check in. Jun,olyarthralgia (ICD-10 - M25.50) I did offer a toradol injection in the office today. Patient is agreeable. Jun,Osteoarthritis cervical spine (ICD-10 - M47.812) Patient has been receiving injections with neurology. Patient is to continue to follow with them asscheduled. [facility] 12-14-2023 Evaluation note* Encounter Date Diagnosis Assessment Notes Treatment Notes Treatment Clinical Notes May, PAD (peripheral artery disease) (ICD-10 - I73.9) Patient recently had angioplasty for occlusion of right iliac artery that was discovered by rn resource nurse. He has been doing well since the angioplasty by vascular. He is on plavix, ASA and doing okay. No abnormal bleeding or bruising to report. He is to follow up with vascular as scheduled. May,nxiety and depression (ICD-10 - F41.8) Patient states [...] to 1 mg daily thereafter. Samples provided May,Hyperlipidemia (ICD-10 - E78.5) Patient has been started on pravachol and zetia for the hyperlipidemia, especially since he had theright iliac occlusion. From a cardiovascular stand point he needs to be on statin therapy. He does have some myalgia on this medication. I am going to stop the pravachol and start him on crestor 5 mg2 days per week and take the zetia 2 days per week. This should help with the myalgia May,Osteoarthritis of cervical spine, unspecified spinal osteoarthritis complication [...] his head to the left. I do wantpatient to get in writing by the neurologist neftaly he is okay to return to work before I provide him that consent. [facility] 12-13-2023 Evaluation note* Encounter Date Diagnosis Assessment Notes Treatment Notes Treatment Clinical Notes May, Status post insertion of iliac a rtery stent (ICD-10 - Z95.828) Patient is doing well after his right external iliac artery stent placement. There was a chronic total occlusion. I did review the patient's ABIs today. They are normal. He has excellent normal bloodflow to the right foot at this time. He is very pleased with his results. I told him that he needs to quit smoking now as promised. He agrees to do so. I will see him in 3 months. [facility] 11-28-2023 Evaluation note* Encounter Date Diagnosis Assessment Notes Treatment Notes Treatment Clinical Notes Apr, Claudication of both lower extre mities (ICD-10 - I73.9) 62 yr old male [...] negative GXT stress and echocardiogram done, EF 60- 65% and no significant valve disease. He also [...] daily. - Follow up in 3 months Apr,Lightheadedness (ICD-10 - R42) [facility] Other [id number] Procedure noteKing[facility]11-16-2023 Evaluation note* Encounter Date Diagnosis Assessment Notes Treatment Notes Treatment Clinical Notes Apr, Right leg claudication (ICD-10 - I73.9) Apr,AD (peripheral artery disease) (ICD-10 - I73.9)Patient is describing severe lifestyle limiting claudication of the right lower extremity. His leftleg is completely normal. This patient does have [...] questions were addressed and consent was obtained. [facility] 11-14-2023 Evaluation note* Encounter Date Diagnosis Assessment Notes Treatment Notes Treatment Clinical Notes Apr, Tinnitus of both ears (ICD-10 - H93.13) The patient declines ENT referral at this time, he states he has been advised by pain management that his tinnitus could be related to cervical spine pain and perfers to wait and see if upcoming epidural injections bring any improvement. 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 He states he has an upcoming cervical epidural scheduled. The patient remains out of work on jail disability , he voices interest in returning to work soon. Apr,AD (peripheral artery disease) (ICD-10 - I73.9) Arterial studies ordered by rn resource nurse indicating peripheral artery disease. The patient does report lower extremity pain and heaviness and I recommend it would be beneficial to consult with a vascular specialist. The patient is in agreement, therefore a referral was initiated. A CTA has been ordered by neurologist , appointment pending [facility] scheduling. Apr,Hyperlipidemia (ICD-10 - E78.5) Blood work results reveiwed [...] vocies understanding. We will continue to monitor. [facility] 10-26-2023 Evaluation note* Encounter Date Diagnosis Assessment Notes Treatment Notes Treatment Clinical Notes Mar, Claudication (ICD-10 - I73.9) [facility] 10-25-2023 Evaluation note* Encounter Date Diagnosis Assessment Notes Treatment Notes Treatment Clinical Notes Mar, Claudication of both lower extre mities (ICD-10 - I73.9) 62 yr old male [...] negative GXT stress and echocardiogram done, EF 60- 65% and no significant valve disease. He also [...] given intermittent claudication. -Follow-up in 4 weeks Mar,Lightheadedness (ICD-10 - R42) [facility] 10-24-2023 Evaluation note* Encounter Date Diagnosis Assessment Notes Treatment Notes Treatment Clinical Notes Mar, Elevated blood pressure reading (ICD-10 - R03.0) [facility] 09-28-2023 Evaluation note* Encounter Date Diagnosis Assessment Notes Treatment Notes Treatment Clinical Notes Feb, Osteoarthritis of ce rvical spine, unspecified spinal osteoarthritis complication status (ICD-10 - M47.812) The patient encouraged to continue following with and I suggest he advise pain managment his pain now on the left side following right side ablation. Feb,Elevated blood pressure reading (ICD-10 - R03.0) Symptoms have improved since discontinuing Olmestartin which has resulted in his blood pressure elevating. I suggest the patient try the above medication positive and negative side effects reviewed. I recommend we extend his work leave for another two weeks, return to work date 04/02/23 . I will re-evalaute prior to that. Feb,izziness (ICD-10 - R42) Feb,Left ear pain (ICD-10 - H92.02) The bilateral ears are totally clear to the TM with no impacted cerumen or signs of infection. Feb,urning sensation (ICD-10 - R20.8) [facility] 09-21-2023 Evaluation note* Encounter Date Diagnosis Assessment Notes Treatment Notes Treatment Clinical Notes Feb, Elevated blood pressure reading (ICD-10 - R03.0) The patient states he has expericeced body aches , dizziness and left ear congestion since startingOlmesartan. Arrhythmia noted upon ausculation. At this time I recommend the patient stop Olmesartanand monitor his symptoms.An in house EKG ordered and reviewed. I will see the patient back in one week to monitor and if his symptoms have resolved I will consider releasing him back to work 03/18/23. Feb,Osteoarthritis of cervical spine, unspecified spinal osteoarthritis complication status (ICD-10 - M47.812) The patient encourged to continue following with pain management, he will have an ablation performed tomorrow 03/08/23.The patient has been off work for the past 18 months due to neurology deficits ,he has been following with neurology for evaluation and treatment . The patient has recieved a letter from Neurologist relasing him to return to work 03/18/23. Feb,Right sided numbness (ICD-10 - R20.0) Feb,Left ear pain (ICD-10 - H92.02) The patient states he has been to the ER and urgent care for left ear pain. Upon examination the ear is clear to the TM with no indication of bulging or infection. Feb,ardiac arrhythmia, unspecified cardiac arrhythmia type (ICD-10 - I49.9) Arrhythmia noted upon auscultation. A normal cardiac stress test and echocardiogram performed two years ago. A normal in house EKG ordered and performed today . Feb,izziness (ICD-10 - R42) The patient reports onset of dizziness when he started Olmesartan. A normal in house EKG ordered and reviewed with the patient today.The patient advised to stop Olmesartan and monitor sympotms . I will see him back in one week to re- evaluate . I will make a determination on return to work date at that time. Feb,yshidrotic eczema (ICD-10 - L30.1) The patient instructed to apply the above topical cream to the right index finger. We will continueto monitor. [facility] 07-13-2023 Hospital Discharge instructions Diet Plan/Instructions [...] * Discharge Physician: : Lima Joseph MD ([id number]) - Anesthesiology, Pain Management * Discharge Physician Phone: : [phone] [address] [facility] [address], [facility] [id number] Special Plan/Instructions for Discharge from 12/27/2022 10:26 AM: * Special Instructions : Spoke to patient Wound Care Instruction for Discharge from 12/27/2022 10:26 AM: * Special Instructions : Spoke to patient [facility] 06-20-2023 Evaluation note* Encounter Date Diagnosis Assessment Notes Treatment Notes Treatment Clinical Notes Nov, Anxiety and depression (ICD-10 - F41.8) Anxiety /depression appears to be controlled at this time. Pt is to continue with the above medication and we will continue to monitor. Nov,Osteoarthritis of cervical spine, unspecified spinal osteoarthritis complication status (ICD-10 - M47.812) Pt is to continue with the above medication and we will continue to monitor. Nov,Sore throat (ICD-10 - J02.9) In house strep test is negative . I did prescribe the above medication and encouraged pt to increase fluid intake, throat lozenges or gargle with mouth wash as needed. Pt is to also take OTC pain medication and fever reducers as needed. Nov,Lymphadenopathy of head and neck (ICD-10 - R59.9) The patient encouraged to continue following with neurologist or cervical injections and possible ablation.The patient states he is not getting as dizzy , vision is better for longer periodsof time. Per patient his medical leave extension is due to 12/16/22, Dr. Cadena would like totry and get him back to work by the end of summer . I am in agreement to continue his medical leavefor another three months, the patient will have the medical forms sent to the office to be completed. [facility] 05-12-2023 History of Present illness Narrative* [...] be found usingthis link: [email or web address] SIGNATURE: TABITHA Srinivasan) PATIENT NAME: Shantel Melendez DATE: October 27, 2022 TIME: 11:55 AM PAGER/CONTACT #: documented in this encounterSelect Medical [facility]04-07-2023 History of Present illness Narrative* TABITHA Kim) [...] 2022 TIME: 2:39 PM documented in this encounterSelect Medical [facility]04-05-2023 Miscellaneous Notes* Telephone Encounter - Akash Menezes [...] return call ? Yes documented in this encounterSelect Medical [facility]03-29-2023 Instructions* Patient Instructions* Kelly Perez PA-C - [...] perform on same dariusz. documented in this encounterSelect Medical Cleveland [facility]03-29-2023 Nurse Note* Antonia Tripathi MA - 09/13/2022 10:55 AM EDT Additional intake questions: Has the patient had fever, nausea, vomiting, diarrhea, constipation, fatigue for > 1 week? Yes, diarrhea ( 3 times in last 24 hours), fatigue, and Provider Notified Does the patient have a decreased appetite? No Does patient want to see a Flash Designer? No (yes to any of above refer [...] By: Antonia Tripathi MA documented in this encounterSelect Medical [facility]03-29-2023 History of Present illness Narrative* Kelly Perez PA-C - 09/13/2022 10:44 AM EDT This note was created using [employer]. Subjective Shantel Melendez is a 61 year [...] or pronator drift. Coordination: Romberg sign negative. Tgbldm-Zbpw-Eyuoww Test normal. Gait: Gait abnormal. Comments: Slightly [...] which included preparing to see the patient, [id number] patient care, completing clinical documentation, obtaining and/or reviewing separately obtained history, performing a medically appropriate examination, counseling and educating the pat ient/family/caregiver, ordering medications, tests, or procedures, communicating with other HCPs (not separately reported), independently interpreting results (not separately reported), communicatingresults to the patient/family/caregiver, and care coordination (not separately reported). documented in this encounterSelect Medical [facility]03-16-2023 Evaluation note* Encounter Date Diagnosis Assessment Notes Treatment Notes Treatment Clinical Notes Aug, Intracranial pressure increased (ICD-10 - G93.2) Pt reports his inter cranial pressure was 17.5 in June. They did aspirate some fluid, and all ofhis symptoms resolved. Dr. Carney did refer to his symptoms as pseudotumor cerebri. We did discuss a cerebral- peritoneal shunt, and pt reports his daughter had one placed in her mid twenties. He will see the PEDIATRIC SOCIAL WORKER at Dr. Cadena's office today, and will see the [facility] 09/13/22. I do feel pt needs his FMLA extended until 12/16/22. I encouraged him to continue to follow with these doctors, and we will continue to monitor. [facility] 02-14-2023 Evaluation note* Encounter Date Diagnosis Assessment Notes Treatment Notes Treatment Clinical Notes Jul, Sinus pressure (ICD-10 - J34.89) Negative in house influenza, COVID-19 obtained, RSV is positive. Jul,Osteoarthritis of cervical spine, unspecified spinal osteoarthritis complication [...] the patient is off work until 09/16/22. Jul,Insomnia, unspecified type (ICD-10 - G47.00) Pt is to continue with the above medication and we will continue to monitor. 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 I did prescribe the above medication and encouraged pt to increase fluid intake, throat lozenges or gargle with mouth wash as needed. Pt is to also take OTC pain medication and fever reducers as needed. [facility] 01-11-2023 Evaluation note* Encounter Date Diagnosis Assessment Notes Treatment Notes Treatment Clinical Notes Jun, Other complicated headache syndr ome (ICD-10 - G44.59) [facility] 12-09-2022 Evaluation note* Encounter Date Diagnosis Assessment Notes Treatment Notes Treatment Clinical Notes May, Osteoarthritis of ce rvical spine, unspecified spinal osteoarthritis complication status (ICD-10 [...] neck pain, dizziness, lightheadedness. At this time Petey keeping patient out of work for additional 3 months for possible return to work on 09/16/2022. Patient encouraged to contact Dr. Cadena's office on appointment with Dr. Carney. May,Lightheadedness (ICD-10 - R42) No improvement with the lightheadedness/dizziness when he looks up. Vision will get impaired per patient report. MRI of the C-spine is pending and awaiting referral to Dr. Carney May,Headache (ICD-10 - R51.9) Patient reports indocin was recently started for the headaches. Patient reports no real improvementwith the standard migraine medications May,Neck pain (ICD-10 - M54.2) Patient is using the the muscle relaxer as needed May,Insomnia, unspecified type (ICD-10 - G47.00) Patient reports that his sleep has been disturbed with the pain her has in the neck. I am going to try him on some hydroxyzine to see if this helps. We will check on him again in 1 month. [facility] 10-30-2022 Hospital Discharge instructions Additional Instructions [...] week to see how you are doing. [facility] Work Phone: 1(325) 387-232510-10-2022 Miscellaneous Notes* Telephone Encounter - Racquel Cole MD - 03/27/2022 3:54 PM EDT Good with me * Telephone Encounter - Asya Reynolds RN - 03/27/2022 2:17 PM EDT Informed patient of your recommendations. He states that he is seeing neurology in [place] and they do not feel he needs [...] about an appointment with a [facility] neurosurgeon. He has not seen you since 10/2021. He states st that time you did not see the need for a neurosurgeon as his tumor wastoo small. Now he all of the sudden has an appointment with this F neurosurgeon and is confused. Can you review and advise as to this appointment with the neurosurgeon. Asya Reynolds RN documented in this encounterSelect Medical Cleveland [facility]09-29-2022 Miscellaneous Notes* Telephone Encounter - Pamela Nascimento APRN.CNP - 03/16/2022 2:51 PM EDT Time Frame: Next available Provider: Intra-axial neurosurgeon & Neuro-Oncology (same day) Referring: Racquel Cole MD Please instruct patient to hand carry/ upload images prior to appt Dx: Low grade glioma Patient: Shantel Melendez Address: Shantel Melendez [id number] [place] [address] Per Triage: Shantel Melendez is a 61 year old male that requests evaluation of previously diagnosed possible low grade glioma. Patient expectations: Second opinion Tumor Specifics: Location: brain Previous Evaluations: MRI w/wo contrast (10/05/21): 10/05/2021 MRI Brain [facility] Impression: 1. There is [...] [facility] Epic access? Yes documented in this encounterSelect Medical Cleveland [facility]09-29-2022 Evaluation note* Encounter Date Diagnosis Assessment Notes Treatment Notes Treatment Clinical Notes Feb, Abnormal brain MRI (ICD-10 - R90 .89) At neurology appointment on 03/14/2022 it was recommended that patient is to remain off work due to neurological evaluation and continued symptoms he is having. Further treatment in process per neurologist. See scanned note. Patient is following up with Neurologist on 04/18/2022 and I will follow himup shortly after for continuity of care and determine return to work date. At this time I am going to keep patient out of work through 06/18/2022 to allow time for completion of neurological workup andtreatment. Note provided to patient in office today. Feb,Migraine (ICD-10 - G43.909) Patient has been under the care of neurologist. Patient did receive 2 injections in the back of thehead at last visit this week and this did provide him with some relief at the present time. Feb,ough (ICD-10 - R05.9) Patient has productive cough with colored sputum. He has been exposed by grandchildren that are ill. Feb,inus pain (ICD-10 - J34.89) Covid testing and flu testing is negative. Patient does have the sinus drainage that is now colored. I am going to give patient a Z pack and Medrol Dose Pack to see if this gives him some relief [facility] Other 08-15-2022 Evaluation note* Encounter Date Diagnosis Assessment Notes Treatment Notes Treatment Clinical Notes Jan, Right sided numbness (ICD-10 - R 20.0) We will continue to monitor. Jan,Headache (ICD-10 - R51.9) Patient reports improvement in headache with starting the qulipta. He was originally started on topamax but he did have negative side effects with taking that.I recommend the patient reamin off work but to also discuss with Dr. Cadena to make sure we are all on the same page. 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 We are awaiting for the results to be faxed over. Patient is to continue to follow with Dr. Cadena as scheduled. Jan,nxiety and depression (ICD-10 - F41.8) Patient is to continue with the above medication. Jan,Visual disturbance (ICD-10 - H53.9) Patient does continue with visual disturbance, therefore the patient is to remain off work. We willfollow up in two weeks. Jan,Fullness in head (ICD-10 - R68.89) Patient has recently started following with Dr. Oziel Cadena, they are planning to do another spinal punture in the near future. Patient is scheduled to follow up again next week. We are awaiting for [facility] to fax over the consult and MRI results. Jan,Neck pain (ICD-10 - M54.2) The patients neck pain is persistant but the headache has improved with a medication change. Discussed with Dr. Cadena his persistent neck pain, may need MRI of his neck and/or EMG. Due to his multiple other medications did hold off on any pain medications. 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 Espinal but the patient got no where. The patient voices interest in seeing Dr. Cadena since he is coming back into town. I am agreeable to refer the patient over to Dr. Cadena. Dec,ervical pain (neck) (ICD-10 - M54.2) Patient is to continue with the above medication. Referral initiated to Dr. Cadena for a second opinion. Dec,nxiety and depression (ICD-10 - F41.8) We will re-start the patient on celexa due to increase of anxiety. We will continue to monitor. Dec,ressure in head (ICD-10 - R51.9) We are referring the patient over to Dr. Cadena for a second opinion. Dec,Elevated blood pressure reading (ICD-10 - R03.0) The patients blood pressure was elevated upon check in. 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 We will yadi over to Dr. Bolanos or Dr. Castanon to see if they will see the patient to further discuss a workup. I would like the patient to remain off work till then, atleast another two months off work, February 21. Nov,ervical pain (neck) (ICD-10 - M54.2) The patient [...] not a brainstem lesion. I discussed with thepatient I disagree with this statement due to [...] rule out other causes of his symptoms. 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 As above a spinal tap was performed yesterday after which the patient states his vision has improved although his back is sore. The patient will follow up results in two weeks with a virtual visit. I strongly encourage him to follow through with this follow up andnotify my office with the results . The patient is off work until 11/17/21. In my opinion I am in agreement the patient stay off work through 12/20/21 and will complete the necessary medical disability forms. [employer] Other 05-17-2022 Evaluation note* Encounter Date Diagnosis Assessment Notes Treatment Notes Treatment Clinical Notes October, Glioma of brain (ICD-10 - C71.9) Patient has consulted neurosurgeon, Dr. Narayan, and he is now referring on to Dr. Jonny Vigil at the [facility] for 2nd opinion. Reviewed consult note from Dr. Narayan with patient. Patient will be seeing Dr. Vigil this week and we will follow up. Patient is currently off work until November and we will see him again in a few weeks. October,Headache (ICD-10 - R51.9) Patient was started on Depakote by neurologist and this does seem to be helping with the headaches.Patient is to continue taking this medication. Will continue to follow up [employer] Other 05-12-2022 History of Present illness Narrative* Racquel Cole MD - 10/27/2021 5:05 PM EDT Images from the original note were not included. NAME: Shantel Melendez CLINIC NO.: [id number] DATE OF SERVICE: October 27, 2021 Some elements in this clinic note that are critical to medical decision making have been carefully reviewed and included from a prior clinic note dated: October 13, 2021 Referring Provider: Griselda Hastings, DO Additional Clinicians involved in Shantel Melendez's care: Dr Kimberly Nichole ENT, Dr. 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 Dr. Nichole ENT Dr. Ibarra CT surgery [facility]. 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 At this point time I would really like the patient to be seen by another neurosurgeon, we have taken the opportunity of referring him on to see Dr. Jonny Vigil. [employer] Other 05-04-2022 Miscellaneous Notes* Telephone Encounter - Haily Issa - 10/19/2021 12:56 PM EDT Called [facility] Neuro Office spoke with Leslee. She states they have received patient records/referral and have patient scheduled to see Dr Narayan on 10/24. Haiyl Issa * Telephone Encounter - Asya Gramajo [facility] - 10/18/2021 10:34 AM EDT Records faxed. * Telephone Encounter - Haily Jovel [facility] - 10/13/2021 12:24 PM EDT Noelle: Information ready for you. Haily Issa * Telephone Encounter - Antonia Mcguire - 10/13/2021 10:33 AM EDT Referral to neurosurgery - Dr. Narayan or [facility] Noelle/Layo: Can you please refer patient and follow up? Thanks! Antonia Mcguire documented in this encounter[facility] History of Present illness Narrative* Racquel Cole MD - 10/13/2021 10:19 AM EDT Images from the original note were not included. NAME: Shantel Melendez CLINIC NO.: [id number] DATE OF SERVICE: October 13, 2021 Some elements in this clinic note that are critical to medical decision making have been carefully reviewed and included from a prior clinic note dated:October 14, 2020 Referring Provider: Griselda Hastings, DO Additional Clinicians involved in Shantel Melendez's care: Dr Kimberly Nichole ENT, Dr. 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 Reviewed scans and there is no evidence [...] adenopathy is identified. 4. 10/05/2021 MRI Brain [facility] Impression: 1. There is [...] and neck (HCC) Racquel Cole MD, CPE [place], [place] CC: Griselda Hastings, DO [address] [phone] [address] Kimberly NEW[place] ENT. Dr. Nichole ENT Dr. Ibarra [place] [facility]. documented in [facility] encounter[facility] Miscellaneous Notes* Telephone Encounter - Racquel Cole [...] steps. Asya Kumar RN documented in this encounter[facility] History of Present illness Narrative* Marilyn Hernandez [...] 06, 2021 8:07 AM documented in this encounter[facility] Evaluation note* Encounter Date Diagnosis Assessment Notes Treatment Notes Treatment Clinical Notes Sep, Anxiety and depression (ICD-10 - F41.8) The patient has stopped taking all medications as he feels he is doing better without. He does feelthat taking a week off work improved the anxiety and has only needed to take three xanax. ThereforeI will provide another work note for patient to be off another week. The patient has looked into seeing Dr. Sanchez as his is good friends with. I suggested patient try to see the psychiatrist and if he does need a referral to contact out office. Sep,creening for prostate cancer (ICD-10 - Z12.5) Review of PSA level which was WNL, therefore, we will continue to monitor. Pt denies any urinary issues at this time. Sep,Hyperlipidemia (ICD-10 - E78.5) Cholesterol levels have improved from last check. Patient is to continue with monitoring diet and exercise. [employer] Other 03-28-2022 Evaluation note* Encounter Date Diagnosis Assessment Notes Treatment Notes Treatment Clinical Notes Aug, Anxiety and depression (ICD-10 - F41.8) [employer] Other 01-13-2022 Evaluation note* Encounter Date Diagnosis Assessment Notes Treatment Notes Treatment Clinical Notes Jun, Sinusitis (ICD-10 - J32.9) I did prescribe the above medications and work note provided. [employer] Other 01-12-2022 Evaluation note* Encounter Date Diagnosis Assessment Notes Treatment Notes Treatment Clinical Notes Jun, Sinus pressure (ICD-10 - J34.89) Patient advised of negative results. Encouraged him to call if symtpoms persist or worsen, he verbalized understanding. [employer] Other 11-02-2021 Evaluation note* Encounter Date Diagnosis Assessment Notes Treatment Notes Treatment Clinical Notes Apr, Sinus congestion (ICD-10 - R09.8 1) [employer] Other 10-28-2021 Evaluation note* Encounter Date Diagnosis Assessment Notes Treatment Notes Treatment Clinical Notes Mar, Anxiety and depression (ICD-10 - F41.8) Patient reports feeling relief for half the day with the above dosage. Therefore I suggested increasing to the 40mg. Patient is agreeable to try. Prescription provided. We will continue to monitor. Mar,Nicotine dependence with current use (ICD-10 - F17.200) At least 3 minutes was spent counseling patient regarding the importance of smoking cessation in regards to the patients overall health. Discussed risks of smoking and health benefits of quitting. Provided patient with all possible options for tobacco cessation. Encouraged patient to continue with their efforts. [employer] Other 12-01-2016 History general Narrative - Reported* Type Description Date Medical History anxiety and depression Medical Dxiisqz84/2016 EGD and colonoscopyMedical HistoryLabs 10/26/16Medical HistoryPSA (0.510) 10/26/16Medical HistoryNo Stress Test as of 11/09/16Medical Sbmvudu12/28/19 PSA (0.6)Medical Uanvhif35/2021 Stress test ,echocardiogram, 24 hr. holterMedical Pahhpjr69/29/21 PSA ( 0.4)Medical Bckwaxj30/2021 Covid + Surgical Historyskin cancer on noseSurgical HistoryEGD and Wlmtraavhnr66/2016 Surgical HistorytonsillectomySurgical HistoryHead and neck HPV kcpnyhs69/2019 Hospitalization Historysee above [employer] Other 12-01-2016 History general Narrative - Reported* Type Description Date Medical History anxiety and depression Medical Zsofmth87/2016 EGD and colonoscopyMedical HistoryLabs 10/26/16Medical HistoryPSA (0.510) 10/26/16Medical HistoryNo Stress Test as of 11/09/16Medical Koyhvqg30/28/19 PSA (0.6)Medical Cimjumh68/2021 Stress test ,echocardiogram, 24 hr. holterMedical Avjtqdh74/29/21 PSA ( 0.4)Medical Smprala94/2021 Covid + Surgical Historyskin cancer on noseSurgical HistoryEGD and Kkbvxeuwcqn48/2016 Surgical HistorytonsillectomySurgical HistoryHead and neck HPV timknrq93/2019 Surgical HistorySpinal [facility] at [facility]/07/2021Hospitalization History see above [employer] Other 12-01-2016 History general Narrative - Reported* Type Description Date Medical History anxiety and depression Medical Eyyxfek95/2016 EGD and colonoscopyMedical HistoryLabs 10/26/16Medical HistoryPSA (0.510) 10/26/16Medical HistoryNo Stress Test as of 11/09/16Medical Eaqdgqn80/28/19 PSA (0.6)Medical Bfbifzk87/2021 Stress test ,echocardiogram, 24 hr. holterMedical Qojkayx34/29/21 PSA ( 0.4)Medical Qrdkluw08/2021 Covid + Medical Oksfohq9805/26/2022 Brain MRISurgical Historyskin cancer on noseSurgical HistoryEGD and Hqhvjlmuhfm99/2016Surgical HistorytonsillectomySurgical History Head and neck HPV vanirqx31/2019Surgical HistorySpinal tap at [facility] 11/07/2021Hospitalization Historysee above [employer] Other 12-01-2016 History general Narrative - Reported* Type Description Date Medical History anxiety and depression Medical Ccxbedm43/2016 EGD and colonoscopyMedical HistoryLabs 10/26/16Medical HistoryPSA (0.510) 10/26/16Medical HistoryNo Stress Test as of 11/09/16Medical Dtuvfnn54/28/19 PSA (0.6)Medical Atvqamk75/2021 Stress test ,echocardiogram, 24 hr. holterMedical Vbingcd02/29/21 PSA ( 0.4)Medical Bfbnciv35/2021 Covid + Medical Noqgwjz4605/26/2022 Brain MRISurgical Historyskin cancer on nose (squamous cell)Surgical HistoryEGD and Cecipujdxih14/2016Surgical Historytonsillectomy Surgical HistoryHead and neck surgery for oral cancer/lymph node dissection 01/2019Surgical HistorySpinal tap at [facility]11/07/2021Hospitalization Historysee above [employer] Other 12-01-2016 History general Narrative - Reported* Type Description Date Medical History anxiety and depression Medical Rdrqemg07/2016 EGD and colonoscopyMedical HistoryLabs 10/26/16Medical HistoryPSA (0.510) 10/26/16Medical HistoryNo Stress Test as of 11/09/16Medical Gqewwax48/28/19 PSA (0.6)Medical Iduiamk03/2021 Stress test ,echocardiogram, 24 hr. holterMedical Sknuzol35/29/21 PSA ( 0.4)Medical Yzuyppk32/2021 Covid + Medical Rlowojr3605/26/2022 Brain MRISurgical Historyskin cancer on nose (squamous cell)Surgical HistoryEGD and Gyisawlxunl45/2016Surgical Historytonsillectomy Surgical HistoryHead and neck surgery for oral cancer/lymph node dissection 01/2019Surgical HistorySpinal tap at [facility]11/07/2021urgical HistoryLP at [facility]08/2022Hospitalization Historysee above [employer] Other 12-01-2016 History general Narrative - Reported* Type Description Date Medical History anxiety and depression Medical Zzdwiox17/2016 EGD and colonoscopyMedical HistoryLabs 10/26/16Medical HistoryPSA (0.510) 10/26/16Medical HistoryNo Stress Test as of 11/09/16Medical Vkenfwz20/28/19 PSA (0.6)Medical Xlrvolw23/2021 Stress test ,echocardiogram, 24 hr. holterMedical Gtqermj38/29/21 PSA ( 0.4)Medical Cpwuxat14/2021 Covid + Medical Sotevxm3805/26/2022 Brain MRIMedical Hanyeiv12/2023 PADSurgical History skin cancer on nose (squamous cell)Surgical HistoryEGD and Kzgwejmyafz99/2016 Surgical HistorytonsillectomySurgical HistoryHead and neck surgery for oral cancer/lymph node rhhrwovuiz40/2019Surgical HistorySpinal tap at [facility]11/07/2021urgical HistoryLP at [facility]08/2022Hospitalization Historysee above [employer] Other 12-01-2016 History general Narrative - Reported* Type Description Date Medical History anxiety and depression Medical Vdjijbu00/2016 EGD and colonoscopyMedical HistoryLabs 10/26/16Medical HistoryPSA (0.510) 10/26/16Medical HistoryNo Stress Test as of 11/09/16Medical Wsotpbq13/28/19 PSA (0.6)Medical Yhxmahc56/2021 Stress test ,echocardiogram, 24 hr. holterMedical Washqiq83/29/21 PSA ( 0.4)Medical Rfisgaf50/2021 Covid + Medical Vcifziq7405/26/2022 Brain MRIMedical Emgoepq99/2023 PADSurgical History skin cancer on nose (squamous cell)Surgical HistoryEGD and Rqqlypchxyz51/2016 Surgical HistorytonsillectomySurgical HistoryHead and neck surgery for oral cancer/lymph node shkiiuqycb24/2019Surgical HistorySpinal tap at [facility]11/07/2021urgical HistoryLP at [facility]08/2022Surgical History angioplasty right iliac cefgnb88/2023Hospitalization Historysee above [employer] Other 05-19-2009 History of Present illness Narrative* [...] He saw Dr. Ba a neurologist in [facility]. * He describes his vision as seeing 1-1/2 . He describes this does not seem quite to but finding a time lab between moving his eyes and having the visual change. [facility] Work Phone: chief complaint+Reason for visit Narrative* Chief Complaint 2 month 2 month f/uReason for VisitCervical spondylosis History of COVID-19 Nicotine dependence with current use SCC (squamous cell carcinoma) Nicotine dependence with current use Osteoarthritis cervical spine [facility] Work Phone: Clinical Notes [facility] Evaluation + Plan note [facility] Evaluation noteNo Assessments Information Available [facility]* Diagnosis Glioma of brain (HCC)- Primary Malignant neoplasm of brain, unspecified site Lung nodules Other nonspecific abnormal finding of lung field 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) Malignant neoplasm of head, face, and neck documented in this encounter [facility]* Diagnosis 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 Malignant neoplasm of head, face, and neck Lung nodules Other nonspecific abnormal finding of lung field Malignant neoplasm of head, face and neck (HCC) Malignant neoplasm of head, face, and neck documented in this encounter [facility]Eval[facility] noteNo InformationNort [facility] Other Evaluation noteNo assessment information available [facility] Work Phone: Evaluation note* Diagnosis Onset Date Resolution Status Migraine acute [facility] Work Phone: Evaluation note* Diagnosis NPH (normal pressure hydrocephalus) (HCC)- Primary Idiopathic normal pressure hydrocephalus (INPH) [facility]* Diagnosis 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HCC)- Primary NPH (normal pressure hydrocephalus) (HCC) Idiopathic normal pressure hydrocephalus (INPH) documented in this encounter [facility]* Diagnosis 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HCC) NPH (normal pressure hydrocephalus) (HCC) Idiopathic normal pressure hydrocephalus (INPH) documented in this [facility]* Diagnosis Onset Date Resolution Status Anxiety and depression acuteEssential hypertensionacuteHyperlipidemiaacuteOsteoarthritis cervical spine acutePAD (peripheral artery disease)acute [facility] Work Phone: Evaluation note* Diagnosis 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 [facility] Work Phone: Evaluation note* Diagnosis 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 Griselda Hastings. 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) Malignant neoplasm of head, face, and neck documented in this encounter [facility] note* Diagnosis Malignant neoplasm of head, face and neck (HCC) Malignant neoplasm of head, face, and neck Lung nodules Other nonspecific abnormal finding of lung field 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) Malignant neoplasm of head, face, and neck Localized swelling, mass or lump of neck Swelling, mass, or lump in head and neck documented in this encounter [facility]* Diagnosis Cervical radiculopathy- Primary Brachial neuritis or radiculitis nos Cervical radiculopathy Brachial neuritis or radiculitis nos Senile osteoporosis Senile osteoporosis documented in this encounter [facility] Work Phone: [phone] note* Diagnosis Cervical radiculopathy- Primary Brachial neuritis or radiculitis nos Status post cervical spinal fusion Arthrodesis status Acute postoperative pain Other acute postoperative pain Muscle spasms of neck documented in this encounter [facility] Work Phone: [phone] note* Diagnosis Other nerve root and plexus disorders- Primary Cervical paraspinal muscle spasm Spasm of muscle Cervical stenosis of spinal canal Spinal stenosis in cervical region [facility] Diagnosis Cervical radiculopathy- Primary Brachial neuritis or radiculitis nos Occipital neuralgia of left side Balance problem Abnormality of gait documented in this encounter [facility] Work Phone: [phone] note* 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 [facility] Work Phone: Evaluation note* 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 [facility] Work Phone: [phone] note* Diagnosis Cervical radiculopathy- Primary Brachial neuritis or radiculitis nos Senile osteoporosis documented in this encounter [facility] Work Phone: [phone] note* Diagnosis Cervical radiculopathy Brachial neuritis or radiculitis nos Senile osteoporosis Cervical radiculopathy Brachial neuritis or radiculitis nos Senile osteoporosis Cervical radiculopathy Brachial neuritis or radiculitis nos Senile osteoporosis documented in this encounter [facility] Work Phone: [phone] note* Diagnosis Cervical radiculopathy Brachial neuritis or radiculitis nos Senile osteoporosis Cervical radiculopathy Brachial neuritis or radiculitis nos Cervical radiculopathy Brachial neuritis or radiculitis nos Senile osteoporosis documented in this encounter [facility] Work Phone: Evaluation note* Diagnosis Cervical radiculopathy Brachial neuritis or radiculitis nos Senile osteoporosis Cervical radiculopathy Brachial neuritis or radiculitis nos Cervical radiculopathy Brachial neuritis or radiculitis nos Senile osteoporosis documented in this encounter [facility] Work Phone: Evaluation note* Diagnosis Status post cervical spinal fusion- Primary Arthrodesis status documented in this encounter [facility] Work Phone: Evaluation note* Diagnosis Nerve root and plexus disorder, unspecified- Primary documented in this encounter [facility]* Diagnosis Nerve root and plexus disorder, unspecified- Primary [facility]* Diagnosis Nerve root and plexus disorder, unspecified- Primary [facility]* Diagnosis Status post cervical spinal fusion- Primary Arthrodesis status documented in this encounter [facility] Work Phone: Evaluation note* Diagnosis 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 Malignant neoplasm of head, face, and neck [facility] 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) Malignant neoplasm of head, face, and neck [facility] Diagnosis Nerve root and plexus [...] in [facility]* Diagnosis Acute pain of right shoulder- Primary Nerve root and plexus disorder, unspecified Acute pain of left shoulder documented in this encounter [facility] HealthcareEvaluation note* Diagnosis Other nerve root and plexus disorders- Primary Acute pain of left shoulder Acute pain of right shoulder documented in this encounter [facility] HealthcareHospital Discharge instructions Additional Instructions Obtain Elsy pot and perform nasal irrigations twice a dayOur [facility] Of [facility] Work Phone: Hospital Discharge instructions Additional Instructions Please return to emergency department for any new or worrisome symptoms including any chest pain, shortness of breath, vomiting, fever. Take all antibiotics even if you start feeling better.[facility] Work Phone: Hospital Discharge instructions Additional Instructions Push fluids Zofran for nausea vomiting Follow-up with the GI specialist as discussed for possible colonoscopy Return here if any problems persist or worsen If you are able to collect a urine specimen take it to the lab.[facility] Work Phone: Reason for referral (narrative)* Diagnostic Procedure Only (Routine) - ClosedSpecialtyDiagnoses / ProceduresReferred By Contact Referred To ContactCT IMAGING Diagnoses Malignant neoplasm of head, face and neck (HCC) Lung nodules 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) Localized swelling, mass or lump of neck Procedures CT CHEST W IVCON CAT SCAN OF CHEST CONTRAST Racquel Cole MD [address] [place] [address] [place] [address] [place] [address] Referral IDStatusReasonStart DateExpiration DateVisits RequestedVisits [id number] Auto-Generated Referral / * Diagnostic Procedure Only (Routine) - ClosedSpecialtyDiagnoses / Procedures Referred By ContactReferred To ContactCT IMAGING Diagnoses Malignant neoplasm of head, face and neck (HCC) Lung nodules 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) Localized swelling, mass or lump of neck Procedures CT NECK SOFT TISSUE W IVCON CONTRAST CAT OF NECK TISSUE Racquel Cole MD [address] [place] [address] [place] [address] [place] [address] Referral IDStatusReasonStart DateExpiration DateVisits RequestedVisits [id number] Auto-Generated Referral / [facility] ShawReason for referral (narrative)No reason for referral information availableMccullough-[facility] Work Phone: Reason for visit Narrative* Auth/CertSpecialty Diagnoses / ProceduresReferred By ContactReferred To Contact Diagnoses Cervical radiculopathy Senile osteoporosis Cervical radiculopathy [M54.12] Senile osteoporosis [M81.0] Procedures AR ARTHRD ANT INTERBODY DECOMPRESS CERVICAL BELW C2 AR ARTHRD ANT INTERBODY DECOMPRESS CERVICAL BELW C2 AR ARTHRD ANT INTERDY CERVCL BELW C2 EA ADDL NTRSPC AR ALLOGRAFT FOR SPINE SURGERY ONLY STRUCTURAL AR MICROSURG TQS REQ USE OPERATING MICROSCOPE Fusion Spine Anterior Cervical and Discectomy C5-6, C6-7 Doretha Harris MD [address] [facility], [facility] [address] [place] [address] Phone: tel: fax: [facility] [place] [address] [place] [address] fax: Referral IDStatusReasonStart DateExpiration DateVisits RequestedVisits [id number] [facility] Work Phone: Reason for visit Narrative* Injection (Routine) - ClosedSpecialtyDiagnoses / ProceduresReferred By ContactReferred To Contact Neurology Diagnoses Acute pain of left shoulder Procedures AR OFFICE/OUTPATIENT NEW HIGH MDM 60 MINUTES Oziel Cadena MD [address] [facility] [address] [place] [address] Phone: tel: fax: Oziel Cadena MD [address] [facility] [address] [place] [address] Phone: tel: fax: Referral IDStatusRemaddieStsuzy DateExpiration DateVisits RequestedVisits [id number] Perform Procedure / [facility] Healthcare Summary Purpose Family History No [...] Recorded Date/T yolie father Malignant neoplasm Unknown DeceasedUnknowngrandparentDeceasedUnknownNot SpecifiedHeart diseaseUnknown Relationship Condition Age at Onset Recorded Date/T yolie father Malignant neoplasm Unknown DeceasedUnknownNot SpecifiedHeart diseaseUnknownDiabetes mellitusUnknownbrother HypertensionUnknownsisterHeart diseaseUnknown Relationship Condition Age at Onset Recorded Date/T yolie brother Hypertension Unknown sisterHeart diseaseUnknownfatherMalignant neoplasmUnknownCerebrovascular accident (CVA)UnknownmotherHeart diseaseUnknown Relationship Condition Age at Onset Recorded Date/T yolie brother Hypertension Unknown sisterHeart diseaseUnknownfatherMalignant neoplasmUnknownCerebrovascular accident (CVA)UnknownmotherHeart diseaseUnknownDeceasedUnknown Advance Directives No Advanced Directives Records Found Advance Directive Response Recorded Date/ Time Advance Directives No December 10 8:00pm Advance Directive Response Recorded Date/ Time Advance Directives No December 10 7:00pm Advance Directive Response Recorded Date/ Time Advance Directives No July 07, 2023 8:27am Advance Directive Response Recorded Date/ Time Advance Directives No July 07, 2023 9:27am TypeDate RecordedPatient RepresentativeExplanationLiving 10/05/2023 9:39 AM TypeDate RecordedPatient RepresentativeExplanationLiving Will10/05/2023 9:39 AM Date ActivatedDate SbzfjvnyzruTiwsfsuq38/23/2024 6:57 PMQuestionAnswerComments Plan of Care:* Code Status Discussion Completed Decision Maker:* Patient Date ActivatedDate RpomkljawyfKjtieiey99/23/2024 11:50 AM04/09/2024 6:57 PM QuestionAnswerCommentsPlan of Care:* Code Status Discussion Completed Decision Maker:* Patient Date ActivatedDate XszzyskiaiaChcsjraj66/23/2024 6:57 PMQuestionAnswerComments Plan of Care:* Code Status Discussion Completed Decision Maker:* Patient Date ActivatedDate ZwiqvsbbiatJdwmzgrb33/23/2024 11:50 AM04/09/2024 6:57 PM QuestionAnswerCommentsPlan of Care:* Code Status Discussion Completed Decision Maker:* Patient Chief Complaint and Reason for Visit Chief Complaint Z20.822,R05,Z00.00 z00.00 Chief Complaint Z20.822,R05,Z00.00 z00.00 I44.0 Chief Complaint Neck pain Neck pain Chief Complaint Neck pain Neck pain L rib pain NKI Chief Complaint Neck pain Neck pain L rib pain NKI vertigo, neck Chief Complaint vertigo, neck G91.2 G91.1 M54.81 hydrocephalusReason for VisitMigraine Chief Complaint E78.5 Z12.5 M54.17 Chief Complaint [...] Up 1 Month Follow Up 1 MONTH F/UReason for VisitAnxiety and depression Essential hypertension Hyperlipidemia Osteoarthritis cervical spine PAD (peripheral artery disease) Chief Complaint 1 Month Follow Up 1 MONTH F/U follow up per brk I70.213 3m F/U; PAD; MARK's B/L legs at 11:30amReason for VisitAnxiety and depression Essential hypertension Hyperlipidemia Osteoarthritis cervical spine PAD (peripheral artery disease) Anxiety and depression Balance disorder Glioma of brain PAD (peripheral artery disease) Chief Complaint 1 Month Follow Up 1 MONTH F/U follow up per brk I70.213 3m F/U; PAD; MARK's B/L legs at 11:30am HBPReason for VisitAnxiety and depression Essential hypertension Hyperlipidemia Osteoarthritis cervical spine PAD (peripheral artery disease) Anxiety and depression Balance disorder Glioma of brain PAD (peripheral artery disease) Cardiac arrhythmia Glioma of brain Hyperlipidemia PAD (peripheral artery disease) Chief Complaint 1 MONTH F/U follow up per brk I70.213 3m F/U; PAD; MARK's B/L legs at 11:30am HBP J01.90 R05.8Reason for VisitAnxiety and depression Essential hypertension Hyperlipidemia Osteoarthritis cervical spine PAD (peripheral artery disease) Anxiety and depression Balance disorder Glioma of brain PAD (peripheral artery disease) Cardiac arrhythmia Glioma of brain Hyperlipidemia PAD (peripheral artery disease) Chief Complaint 1 MONTH F/U follow up per brk I70.213 3m F/U; PAD; MARK's B/L legs at 11:30am HBP J01.90 R05.8 6 weeks 2 month f/uReason for VisitAnxiety and depression Essential hypertension Hyperlipidemia Osteoarthritis cervical spine PAD (peripheral artery disease) Anxiety and depression Balance disorder Cardiac arrhythmia Hyperlipidemia Cardiac arrhythmia Essential hypertension Hyperlipidemia Anxiety and depression Brain mass Essential hypertension Chief Complaint I70.213 3m F/U; PAD; MARK's B/L legs at 11:30am HBP J01.90 R05.8 6 weeks 2 month f/u 1 monthReason for VisitCardiac arrhythmia Hyperlipidemia Cardiac arrhythmia Essential hypertension Hyperlipidemia Anxiety and depression Brain mass Cervical spondylosis Essential hypertension Anxiety and depression Brain mass Cervical spondylosis Chief Complaint 1 month 2 monthReason for VisitAnxiety and depression Brain mass Cervical spondylosis Cervical spondylosis History [...] 3:14 pm GERD (gastroesophageal reflux disease) J [facility] 2024 3:14pm Chief Complaint Admit Date B33.8 [...] 10:28am Nicotine dependence with current use Sep tem2024 10:28am P[facility] (peripheral artery disease) [facility] Screening for prostate cancer February 19, 2025 10:28am Chief Complaint Admit Date follow up Dyspepsia/GERD January 12, 2025 3:14pm medicare wellness February 19, 2025 10:28am I73.9 February 26, 2025 1:18pm Reason for Visit Admit Date Colon polyps January 12, 2025 3:14 pm Dyspepsia January 12, 2025 3:14 pm GERD (gastroesophageal reflux disease) J [facility] 2024 3:14pm Anxiety and depression February 19 10:28am Burning sensation February 19, 2025 10:28am Colon polyps Floresita 4th, 2025 10:28am Hyperlipidemia February 19, 2025 10:28am [...] Sep 2024 10:28am PAD (peripheral artery disease) [facility] 2024 10:28am S/P cervical discectomy February 19, 2 025 10:28am Screening for prostate cancer February 19, 2025 10:28am Burning sensation April 01, 2025 1 :42pm Hypertension April 01, 2025 1 :42pm Assessments No Assessments Information Available Reason for Referral SpecialtyDiagnoses / ProceduresReferred By ContactReferred To Contact Neurosurgery Diagnoses Glioma of brain (HCC) Procedures CONSULT TO NEUROSURGERY OFFICE/OUTPATIENT [facility] 60-74 MINUTES Racquel Cole MD [address] [place] [address] [place] [address] Referral IDStatusReasonStart DateExpiration DateVisits RequestedVisits [id number] PCP Requested Referral /[id number] / ProceduresReferred By ContactReferred To ContactCT IMAGING Diagnoses Lung nodules Procedures CT CHEST W IVCON DIAGNOSTIC COMPUTED TOMOGRAPHY THORAX W/CONTRAST Abhyankar, Racquel, MD [address] [facility] [place] [address] Ct Imaging Referral IDStatusReasonStart DateExpiration DateVisits RequestedVisits [id number] Review Auto-Generated Referral [id number] / ProceduresReferred By ContactReferred To ContactCT IMAGING Diagnoses Malignant neoplasm of head, face and neck (HCC) Procedures CT NECK SOFT TISSUE W IVCON CT SOFT TISSUE NECK W/CONTRAST MATERIAL Racquel Cole MD [address] [facility] [place] [address] Ct Imaging Referral IDStatusReasonStart DateExpiration DateVisits RequestedVisits [id number] Review Auto-Generated Referral Reason *FU 10/31 Evaluate and Treat Brainstem Lesion 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) Referral Organization [facility] urosurgery Referring Provider First Name Sheng Referring Provider Last Name Wyatt Referring Provider Specialty Neurosurger y Referred Organization [facility] Referred Provider Jonny Vigil Referred Address [address] [facility] [facility] [address] [place], [place],[address] Referred Provider Specialty Neurological Surgery Referral Priority Routine General Notes Fore, Linnea M 022 02:09:54 PM >Received and fax referral today Reason consult and treat (p t is willing to see him in [place], if not then [facility]) 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) Diagnosis 2 Cervical pain (neck) (M54.2) Diagnosis 3 Pressure in head (R5 1.9) Referral Organization [facility] Referring Provider First Name Griselda Referring Provider Last Name Darling Referring Provider Specialty Family Prac henny Referred Organization [facility] Referred Provider Oziel Cadena Referred Address [address] [facility] [facility] [place], [place],[address] Referral Priority Routine SpecialtyDiagnoses / ProceduresReferred By ContactReferred To ContactMR IMAGING Diagnoses 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HCC) Procedures MRI BRAIN WO/W IVCON MRI BRAIN BRAIN STEM W/O W/CONTRAST MATERIAL Kelly Perez PA-C [address] [place] [address] Mr Imaging Referral IDStatusReasonStart DateExpiration DateVisits RequestedVisits [id number] Auto-Generated Referral /[id number] IDStatusReasonStart DateExpiration DateVisits RequestedVisits [id number] Auto-Generated Referral / Reason pt requesting n ot Dr. Verma, [...] [facility] Referred Provider Manuela Ballesteros Referred Address ,[place], [place],[address] Referred Provider Specialty Ear, Nose an d Throat Referral Priority Routine General Notes Yessica Brown 12:40:36 PM >received today, pt has medicaid insurance, will send to Dr. Ballesteros, attachments made, waiting for notes to be locked Reason consult and treat Diagnosis 1 PAD (peripheral arnie ry disease) (I73.9) Referral Organization [facility] Referring Provider First Name Griselda Referring Provider Last Name Darling Referring Provider Specialty Family Prac henny Referred Organization [facility] Vascular Surge ry Referred Provider Filipe Hess Referred Address [address] [place] [address],[place], [place],[address] Referred Provider Specialty Vascular Abdirahman yvon Referral Priority Routine General Notes Linnea Alvarado M 023 11:58:24 AM >Received today and sent P2P SpecialtyDiagnoses / ProceduresReferred By ContactReferred To ContactCT IMAGING Diagnoses 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) Procedures CT CHEST W IVCON DIAGNOSTIC COMPUTED TOMOGRAPHY THORAX W/CONTRAST Racquel Coel MD [address] [place] [address] [place] [address] [place] [address] Referral IDStatusReasonStart DateExpiration DateVisits RequestedVisits [id number] Auto-Generated Referral [id number] / ProceduresReferred By ContactReferred To ContactCT IMAGING Diagnoses 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) Procedures CT NECK SOFT TISSUE W IVCON CT SOFT TISSUE NECK W/CONTRAST MATERIAL Racquel Cole MD [address] [place] [address] [address] [place], [facility] Ct Imaging [facility] Referral IDStatusReasonStart DateExpiration DateVisits RequestedVisits [id number] Auto-Generated Referral 1Referral IDStatusReasonStart DateExpiration DateVisits RequestedVisits [id number] Auto-Generated Referral 1Referral IDStatusReasonStart DateExpiration DateVisits RequestedVisits [id number] Auto-Generated Referral [id number] / ProceduresReferred By ContactReferred To ContactCT IMAGING Diagnoses Lung nodules Procedures CT CHEST W IVCON DIAGNOSTIC COMPUTED TOMOGRAPHY THORAX W/CONTRAST Racquel Cole MD [address] [place] [address] [place] [address] Ct Imaging [facility] Referral IDStatusReasonStart DateExpiration DateVisits RequestedVisits [id number] Auto-Generated Referral /[id number] / ProceduresReferred By ContactReferred To ContactCT IMAGING Diagnoses Malignant neoplasm of head, face and neck (HCC) Procedures CT NECK SOFT TISSUE W IVCON CT SOFT TISSUE NECK W/CONTRAST MATERIAL Racquel Cole MD [address] [place] [address] [place] [address] [place] [address] Referral IDStatusReasonStart DateExpiration DateVisits RequestedVisits [id number] Auto-Generated Referral /[id number] / ProceduresReferred By ContactReferred To ContactRadiology 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 [place] [address] [place] [address] Referral IDStatusReasonStart DateExpiration DateVisits RequestedVisits [id number] Review Perform Procedure /[id number] / ProceduresReferred By ContactReferred To ContactRadiology 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 tumor perfusion protocol w and wo IV contrast Shimon Heaton PA-C [address] [place] [id number] Referral IDStatusReasonStart DateExpiration DateVisits RequestedVisits [id number] Perform Procedure [id number] / ProceduresReferred By ContactReferred To ContactRadiology Diagnoses Cervical radiculopathy Procedures XR cervical spine complete 6+ views Doretha Harris MD [address] [facility], [place] [address] Referral IDStatusEdnaasonStart DateExpiration DateVisits RequestedVisits [id number] Perform Procedure [id number] / ProceduresReferred By ContactReferred To ContactRadiology Diagnoses Senile osteoporosis Procedures XR DEXA bone density axial skeleton w VFA Doretha Harris MD [address] [facility], [address] [address] Referral IDStatusReasonStart DateExpiration DateVisits RequestedVisits [id number] Review Perform Procedure /[id number] / ProceduresReferred By ContactReferred To Contact Diagnoses Cervical radiculopathy Senile osteoporosis Procedures ECG 12 lead Doretha Harris MD [address] [facility], [address] [place] [address] Referral IDStatusReasonStart DateExpiration DateVisits RequestedVisits [id number]/24/20247/24/159005OulmdqdrzNaupmabhm / Procedures Referred By ContactReferred To ContactRadiology Diagnoses Cervical radiculopathy Procedures XR DEXA bone density Doretha Harris MD [address] [facility], [address] [place] [address] Referral IDStatusReasonStart DateExpiration DateVisits RequestedVisits [id number] Perform Procedure Chief Complaint Patient referred by Dr. Narayan [...] section and content) DATE CREATED AUTHOR 08/01/2019 [facility] DATE CREATED AUTHOR AUTHOR'S ORGANIZ ATION 11/05/2021 [facility] DATE CREATED AUTHOR AUTHOR'S ORGANIZ ATION 01/19/2022 [facility] [facility] DATE CREATED AUTHOR AUTHOR'S ORGANIZ ATION 10/02/2022 [facility] DATE CREATED AUTHOR AUTHOR'S ORGANIZ ATION 12/25/2022 [facility] DATE CREATED AUTHOR AUTHOR'S ORGANIZ ATION 08/03/2023 [facility] DATE CREATED AUTHOR AUTHOR'S ORGANIZ ATION 02/13/2024 [facility] DATE CREATED AUTHOR AUTHOR'S ORGANIZ ATION 10/27/2024 [facility] DATE CREATED AUTHOR AUTHOR'S ORGANIZ ATION 11/13/2024 [facility] DATE CREATED AUTHOR AUTHOR'S ORGANIZ ATION 01/01/2025 [facility] DATE CREATED AUTHOR AUTHOR'S ORGANIZ ATION 01/03/2025 [facility] DATE CREATED AUTHOR AUTHOR'S ORGANIZ ATION 03/21/2025 [facility] DATE CREATED AUTHOR AUTHOR'S ORGANIZ ATION 03/23/2025 [facility] DATE CREATED AUTHOR AUTHOR'S ORGANIZ ATION 04/03/2025 [facility] DATE CREATED AUTHOR AUTHOR'S ORGANIZ ATION 04/07/2025 [facility] Source Comments (unrecognize d section and content) In the event this informatio n is protected by the Federal Confidentiality of Alcohol and Drug Abuse Patient Records regulations: The Federal rules restrict any use of the information to criminally investigate or prosecute any alcohol or drug abuse patient.[facility] Shaw[facility] the event this information is protected by the Federal Confidentiality of Alcohol and Drug Abuse Patient Records regulations: The Federal rules restrict any use of the information to criminally investigate or prosecute any alcohol or drug abuse patient.[facility] ShawIn the event this information is protected by the Federal Confidentiality of Alcohol and Drug Abuse Patient Records regulations: The Federal rules restrict any use of the information to criminally investigate or prosecute any alcohol or drug abuse patient.[facility] ShawIn the event this information is protected by the Federal Confidentiality of Alcohol and Drug Abuse Patient Records regulations: The Federal rules restrict any use of the information to criminally investigate or prosecute any alcohol or drug abuse patient.[facility] ShawIn the event this information is protected by the Federal Confidentiality of Alcohol and Drug Abuse Patient Records regulations: The Federal rules restrict any use of the information to criminally investigate or prosecute any alcohol or drug abuse patient.[facility] ShawIn the event this information is protected by the Federal Confidentiality of Alcohol and Drug Abuse Patient Records regulations: The Federal rules restrict any use of the information to criminally investigate or prosecute any alcohol or drug abuse patient.[facility] ShawIn the event this information is protected by the Federal Confidentiality of Alcohol and Drug Abuse Patient Records regulations: The Federal rules restrict any use of the information to criminally investigate or prosecute any alcohol or drug abuse patient.[facility] ShawIn the event this information is protected by the Federal Confidentiality of Alcohol and Drug Abuse Patient Records regulations: The Federal rules restrict any use of the information to criminally investigate or prosecute any alcohol or drug abuse patient.[facility] ShawIn the event this information is protected by the Federal Confidentiality of Alcohol and Drug Abuse Patient Records regulations: The Federal rules restrict any use of the information to criminally investigate or prosecute any alcohol or drug abuse patient.[facility] ShawIn the event this information is protected by the Federal Confidentiality of Alcohol and Drug Abuse Patient Records regulations: The Federal rules restrict any use of the information to criminally investigate or prosecute any alcohol or drug abuse patient.[facility] ShawIn the event this information is protected by the Federal Confidentiality of Alcohol and Drug Abuse Patient Records regulations: The Federal rules restrict any use of the information to criminally investigate or prosecute any alcohol or drug abuse patient.[facility] ShawIn the event this information is protected by the Federal Confidentiality of Alcohol and Drug Abuse Patient Records regulations: The Federal rules restrict any use of the information to criminally investigate or prosecute any alcohol or drug abuse patient.[facility] ShawIn the event this information is protected by the Federal Confidentiality of Alcohol and Drug Abuse Patient Records regulations: The Federal rules restrict any use of the information to criminally investigate or prosecute any alcohol or drug abuse patient.[facility] ShawIn the event this information is protected by the Federal Confidentiality of Alcohol and Drug Abuse Patient Records regulations: The Federal rules restrict any use of the information to criminally investigate or prosecute any alcohol or drug abuse patient.[facility] ShawIn the event this information is protected by the Federal Confidentiality of Alcohol and Drug Abuse Patient Records regulations: The Federal rules restrict any use of the information to criminally investigate or prosecute any alcohol or drug abuse patient.[facility] Reason for Visit (unrecogniz ed section and content) ReasonCommentsResultsReasonCommentsHead and Neck CancerSpecialtyDiagnoses / ProceduresReferred By ContactReferred To ContactHematology/Oncology / HEMATOLOGY/ONCOLOGY Diagnoses Follow-up examination 1 year follow up LABS WITH CT Procedures EST PATIENT Racquel Cole MD [address] [place] [address] [place] [address] Racquel Cole MD [address] [place] [address] [address] [place] [id number] Referral IDStatusReasonStart DateExpiration DateVisits RequestedVisits [id number]/28/202212/31/962349LyafewEoibngrlMqbgtwor Information NeurosurgeryReasonCommentsEstablished PatientSpecialtyDiagnoses / Procedures Referred By ContactReferred To ContactHematology/Oncology / HEMATOLOGY/ONCOLOGY Diagnoses 2 week phone follow up [phone] Procedures PHYS/QHP TELEPHONE EVALUATION 5-10 MIN PROVIDER SPECIALTY PHONE CALL Racquel Cole MD [address] [place] [address] [place] [address] Racquel Cole MD [address] [place] [address] [place] [address] Referral IDStatusReasonStart DateExpiration DateVisits RequestedVisits [id number]/12/202212/31/186456UazgzwSvkomljxBnphohLunsvfxx Referral--oldReasonCommentsAppointmentReasonCommentsNew PatientSpecialty Diagnoses / ProceduresReferred By ContactReferred To ContactNeurology / BRAIN TUMOR Diagnoses Hydrocephalus (HCC) Hydrocephalus Procedures OFFICE/OUTPATIENT NEW MODERATE MDM 45-59 MINUTES [facility]ICAL Oziel Cadena MD [address] [facility] [address] ROTHMAN [address] [place] [address] Kelly Perez PA-C [address] [place] [address] Referral IDStatusReasonStart DateExpiration DateVisits RequestedVisits [id number]/29/202312/31/007052PngfuvKahwxpmlBbtizgm Question ReasonCommentsRadiology MRISpecialtyDiagnoses / ProceduresReferred By Contact Referred To ContactMR IMAGING Diagnoses 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HCC) Procedures MRI BRAIN WO/W IVCON MRI BRAIN BRAIN STEM W/O W/CONTRAST MATERIAL Kelly Perez PA-C [address] [place] [address] Mr Imaging Referral IDStatusReasonStwyaconda DateExpiration DateVisits RequestedVisits [id number] Auto-Generated Referral /[id number] Patient VisitReasonCommentsHead and Neck Cancer1 year follow upReasonCommentsRadiology CTSpecialtyDiagnoses / Procedures Referred By ContactReferred To ContactCT IMAGING Diagnoses 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) Procedures CT NECK SOFT TISSUE W IVCON CT SOFT TISSUE NECK W/CONTRAST MATERIAL Racquel Cole MD [address] [place] [address] [place] [address] Ct [facility] [place] [address] Referral IDStatusReasonStart DateExpiration DateVisits RequestedVisits [id number] Auto-Generated Referral /[id number] / ProceduresReferred By ContactReferred To ContactCT IMAGING Diagnoses Lung nodules Procedures CT CHEST W IVCON DIAGNOSTIC COMPUTED TOMOGRAPHY THORAX W/CONTRAST Abhyankar, Racquel, MD [address] [place] [address] [place] [address] Ct Imaging [facility] Referral IDStatusReasonStart DateExpiration DateVisits RequestedVisits [id number] Auto-Generated Referral /[id number] / ProceduresReferred By ContactReferred To ContactCT IMAGING Diagnoses Malignant neoplasm of head, face and neck (HCC) Lung nodules 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) Localized swelling, mass or lump of neck Procedures CT NECK SOFT TISSUE W IVCON CONTRAST CAT OF NECK TISSUE Racquel Cole MD [address] [place] [address] [place] [address] Ct [facility] [place] [address] Referral IDStatusReasonStart DateExpiration DateVisits RequestedVisits [id number] Auto-Generated Referral /[id number] PainTinglingNumbnessSpecialtyDiagnoses / ProceduresReferred By ContactReferred To ContactRadiology 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 tumor perfusion protocol w and wo IV contrast Shimon Heaton, BILLY [address] [place] [id number] Referral IDStatusReasonStart DateExpiration DateVisits RequestedVisits [id number] Perform Procedure /[id number] PainSpecialtyDiagnoses / ProceduresReferred By ContactReferred To Contact Diagnoses Cervical radiculopathy Senile osteoporosis Procedures ECG 12 lead Doretha Harris MD [address] [facility], [facility] [address] [place] [address] Referral IDStatusReasonStart DateExpiration DateVisits RequestedVisits [id number]/24/20247/24/835179RdultmotqBpltwznkg / Procedures Referred By ContactReferred To ContactRadiology Diagnoses Cervical radiculopathy Procedures XR cervical spine complete 6+ views Doretha Harris MD [address] [facility], [facility] [address] [place] [address] Referral IDStatusReasonStart DateExpiration DateVisits RequestedVisits [id number] Perform Procedure [id number] / ProceduresReferred By ContactReferred To ContactRadiology Diagnoses Cervical radiculopathy Procedures XR DEXA bone density Doretha Harris MD [address] [facility], [facility] [address] [place] [address] Referral IDStatusReasonStart DateExpiration DateVisits RequestedVisits [id number] Perform Procedure [id number]-tl Spine SurgeryPain in left shoulder. 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) Procedures CT CHEST W IVCON DIAGNOSTIC COMPUTED TOMOGRAPHY THORAX W/CONTRAST Racquel Cole MD [address] [place] [address] [place] [address] Phone: tel: fax: [place] [address] Referral IDStatusReasonStwyaconda DateExpiration DateVisits RequestedVisits [id number] Auto-Generated Referral /[id number] Check Care Teams (unrecognized sec tion and content) Team MemberRelationshipSpecialtyStart DateEnd Date Griselda Hastings [address] [place] [phone] PCP - GeneralFamily Practice11/20/18 Griselda Hastings [address] [place] [address] [place] [phone] ReferringFamily Practice11/20/18Team MemberRelationshipSpecialtyStart DateEnd Date Griselda Hastings [address] [place] [address], [place] [address] PCP - GeneralFamily Practice11/20/18 Griselda Hastings [address] [place] [address], [place] [address] ReferringFamily Practice11/20/18Team MemberRelationshipSpecialtyStart DateEnd Date Griselda Hastings [address] [place] [address], [facility] PCP - GeneralFamily Practice11/20/18 Griselda Hastings [address] [place] [address], [facility] ReferringFamily Practice11/20/18Team MemberRelationshipSpecialtyStart DateEnd Date Griselda Hastings [address] [place] [address], [facility] PCP - GeneralFamily Practice11/20/18 Griselda Hastings [address] [place] [address], [place] [address] ReferringFamily Practice11/20/18Team MemberRelationshipSpecialtyStart DateEnd Date Griselda Hastings [address] [place] [address], [place] [address] PCP - GeneralFamily Medicine11/20/18 Griselda Hastings [address] [place] [address], [place] [address] ReferringFamily Medicine11/20/18Team MemberRelationshipSpecialtyStart DateEnd Date Griselda Hastings [address] [place], [place] [phone] PCP - GeneralFamily Medicine11/20/[address] [address] [facility]erringFam[facility]av[facility] Medicine11/20/18 Team Status: Inactive Member Role Status Dates Griselda [place] , DO Primary Care Provider Active Elias Kingsley ProviderActive Team Status: Active Member Role Status Dates Griselda [place] , DO Primary Care Provider Active Rafa Cuevas ProviderActive Team Status: Active Member Role Status Dates Griselda [place] , DO Primary Care Provider Active Team Status: Inactive Member Role Status Dates Griselda [place] , DO Primary Care Provider Active Danielle Ortiz Jr ProviderActive Team Status: Active Member Role Status Dates Griselda [place] , DO Primary Care Provider Active Nikole Mota APRN PEDIATRIC SOCIAL WORKER-CAttending ProviderActive Team Status: Inactive Member Role Status Dates Griselda [place] , DO Primary Care Provider Active Jasson Cuevasending ProviderActive Team Status: Inactive Member Role Status Dates Griselda [place] , DO Primary Care Provider Active Nikole Mota , BAILEY PEDIATRIC SOCIAL WORKER-CAttending ProviderActiveTeam MemberRelationship SpecialtyStart DateEnd Date Griselda Hastings [address] [place], [place] [phone] [facility]11/20/18 Griselda Hastings [address] [place] [phone] ReferringFamily Medicine11/20/18 Oziel Cadena MD [address] [place] [address] ReferringNeurology08/18/22Team MemberRelationshipSpecialtyStart DateEnd [facility] Griselda Hastings [address] [place] [address], [place] [address] PCP - GeneralFamily Medicine11/20/18 Griselda Hastings [address] [place] [address], [place] [address] ReferringFamily Medicine11/20/18 Oziel Cadena MD [address] [facility] [address] [place] [address] ReferringNeurology08/18/22Team MemberRelationshipSpecialtyStart DateEnd [facility] Griselda Hastings [address] [place] [address], [place] [address] PCP - Generalmily Medicine11/20/[address] [place] [address] ReferringFami Medicine11/20/18 Oziel Cadena MD [address] [facility] [address] [address] ReferringNeurology08/18/22 Team Status: Inactive Member Role Status Dates Griselda [place] , DO Primary Care Provider, Attending Provi skye Active Team Status: Inactive Member Role Status Dates Griselda [place] , DO Primary Care Provider Active Rafa Lawler ProviderActive Team Status: Inactive Member Role Status Dates Griselda [place] , DO Primary Care Provider Active Ella Fischer ProviderActive Team Status: Inactive Member Role Status Dates Griselda [place] , DO Primary Care Provider Active Rafa Hogan ProviderActive Team Status: Inactive Member Role Status Dates Griselda [place] , DO Primary Care Provider Active Rafa Mendoza ProviderActiveTeam MemberRelationship SpecialtyStart DateEnd Date Griselda [place] DO [address] [place] [facility] [place] [address] PCP - [facility]02/13/23Team MemberRelationshipSpecialtyStart DateEnd Date Griselda [place] DO [address] [place] [facility] [address] PCP - [facility]02/13/23 Team Status: Inactive Member Role Status Poornima Hastings DO Primary Care Provider Active Sta rt: May 04, 2023 End: May 04, 2023Nikole Mota APRN PEDIATRIC SOCIAL WORKER-CAttending Provider ActiveStart: May 04, 2023 End: May 04, 2023 Team Status: Inactive Member Role Status Poornima Hastings DO Primary Care Provider Active Sta rt: May 07, 2023 End: May 07, 2023Rafa Mendoza ProviderActiveStart: May 07, 2023 End: May 07, 2023 [...] rt: May 30, 2023 End: May 30, 2023Rafa Mendoza ProviderActiveStart: May 30, 2023 End: May 30, 2023 [...] Provider Active Sta rt: September 05, 2023 Rafa Mendoza ProviderActiveStart: September 05, 2023 Team Status: Inactive Member Role Status Dates Griselda Hastings DO Primary Care Provider Active Sta rt: September 05, 2023 End: September 05, 2023Rafa Mendoza ProviderActiveStart: September 05, 2023 End: September 05, 2023 Team Status: Inactive Member Role Status Dates Griselda Hastings DO Primary Care Provider Active Sta rt: September 05, 2023 End: September 05, 2023LinJasson Estevezending ProviderActiveStart: September 05, 2023 End: September 05, 2023Team MemberRelationshipSpecialtyStart DateEnd Date Griselda [place] DO PCP - General01/03/19Team MemberRelationshipSpecialtyStart DateEnd Griselda Fishman DO [address] [facility] [address] [place] [address] PCP - General01/03/19 [place] [address] [place] [address] Consulting PhysicianHematology and Oncology10/05/23 Team Status: Inactive Member Role Status Poornima Hastings DO Primary Care Provide r, Attending Provider Active Start: October 09, 2023 End: October 09, 2023 Team Status: Inactive Member Role Status Dates Griselda Hastings DO Primary Care Provider Active Sta rt: October 18, 2023 End: October 18, 2023LinJasson Estevezending ProviderActiveStart: October 18, 2023 End: October 18, 2023 Team Status: Active Member Role Status Dates Griselda Hastings DO Primary Care Provider Active Sta rt: October 26, 2023 Jasson Feltonending ProviderActiveStart: October 26, 2023 Team Status: Inactive Member Role Status Dates Griselda Hastings DO Primary Care Provide r, Attending Provider Active Start: October 29, 2023 End: October 29, 2023Team MemberRelationshipSpecialtyStart DateEnd Date Griselda Hastings [address] [place], [place] [phone] PCP - Generalmi Medicine11/20/18 Griselda Hastings [address] [place], [place] [phone] Referringmi Medicine11/20/18 Oziel Cadena MD [address] [facility] [address] [address] ReferringNeurology08/18/22 Team Status: Active Member Role Status Dates Lilliam Cason MD [place] Active Saira Stewart ProviderActive Team Status: Inactive Member Role Status Dates Griselda Hastings DO Primary Care Provide r, Attending Provider Active Start: December 03, 2023 End: December 03, 2023 Team Status: Inactive Member Role Status Dates Griselda Hastings DO Primary Care Provide r, Attending Provider Active Start: January 31, 2024 End: January 31, 2024Team MemberRelationshipSpecialtyStart DateEnd Date Griselda Hastings [address] [place] [phone] [facility]/20/18 Griselda Hastings [address] [place] [phone] ReferringFamily Medicine11/20/18 Oziel Cadena MD [address] [facility] [address]man [address] [place] [address], [place] [address] ReferringNeurology08/18/22Team MemberRelationshipSpecialtyStart DateEnd Date Griselda Hastings [address] [place] [phone] PCP - GeneralFamily Medicine11/20/18 Griselda Hastings [address] [place] [address] ReferringFamily Medicine11/20/18 Oziel Cadena MD [address] [facility] [address]man [address] [place] [address], [place] [address] ReferringNeurology08/18/22Team MemberRelationshipSpecialtyStart DateEnd Date Griselda Hastings [address] [place] [address] PCP - GeneralFamily Medicine11/20/18 Griselda Hastings [address] [place] [phone] ReferringFamily Medicine11/20/18Team MemberRelationshipSpecialtyStart DateEnd Date Griselda Hastings DO [address] [place] [address] PCP - General01/03/19 [place] [address] [place] [address] Consulting PhysicianHematology and Oncology10/05/23 Solomon Narayanan PA-C [address] [facility], [address] [address] Physician AssistantNeurosurlamberty12/12/23 Team Status: Inactive Member Role Status Dates Griselda Hastings DO Primary Care Provide r, Attending Provider Active Start: April 01, 2024 End: April 01, 2024Team MemberRelationshipSpecialtyStart DateEnd Date Griselda Hastings DO [address] [place] [address] PCP - General01/03/19 [place] [address] [place] [address] Consulting PhysicianHematology and Oncology10/05/23 Solomon Narayanan PA-C [address] [facility], [address] [address] Physician AssistantYasmeen12/12/23Team MemberRelationshipSpecialtyStart Date End Date Griselda Hastings DO [address] [place] [address] PCP - General01/03/19 [place] [address] [place] [address] Consulting PhysicianHematology and Oncology10/05/23 Solomon Narayanan PA-C [address] [place] [address] Physician AssistantNeurosurgery12/12/23 Team Status: Inactive Member Role Status Dates Griselda Hastings DO Primary Care Provider Active Sta rt: April 28, 2024 End: April 28, 2024LinJasson Estevezending ProviderActiveStart: April 28, 2024 End: April 28, 2024Team MemberRelationshipSpecialtyStart DateEnd Date Griselda Hastings DO [address] [place] [address] [facility] - [facility]Way[facility] Medicine02/13/23Team MemberRelationshipSpecialtyStart DateEnd Date Griselda Hastings DO [address] [place] [address] PCP - GeneralFami Medicine02/13/23Team MemberRelationshipSpecialtyStart DateEnd Date Griselda Hastings DO [address] [place] [address] PCP - General01/03/19 [place] [address] [place] [address] Consulting PhysicianHematology and Oncology10/05/23 Solomon Narayanan PA-C [address] [facility], [place] [address] [place] [address] Physician AssistantNeurosurgery12/12/23Team MemberRelationshipSpecialtyStart Date End Date Griselda Hastings DO [address] [place] [address] PCP - General7/19/19 [place] [address] [place] [address] Consulting PhysicianHematology and Oncology10/05/23 Solomon Narayanan PA-C [address] [facility], [address] [address] Physician AssistantNeurosurgery12/12/23Team MemberRelationshipSpecialtyStart Date End Date Griselda Hastings DO [address] [place] [address] PCP - General01/03/19 [place] [address] [place] [address] Consulting PhysicianHematology and Oncology10/05/23 Solomon Narayanan PA-C [address] [facility], [address] [address] Physician AssistantNeurosurgery12/12/23Team MemberRelationshipSpecialtyStart Date End Date Griselda Hastings DO [address] [place] [address] PCP - General01/03/19 [place] [address] [place] [address] Consulting PhysicianHematology and Oncology10/05/23 Solomon Narayanan PA-C [address] [facility], [address] [address] Physician AssistantNeurosurgery12/12/23Team MemberRelationshipSpecialtyStart Date End Date Griselda Hastings DO [address] [place] [address] PCP - General01/03/19 [place] [address] [place] [address] Consulting PhysicianHematology and Oncology10/05/23 Solomon Narayanan PA-C [address] [facility], [address] [address] Physician AssistantNeurosurlamberty12/12/23Team MemberRelationshipSpecialtyStart Date End Date Griselda Hastings DO [address] [place] [address] PCP - General01/03/19 [place] [address] [place] [address] Consulting PhysicianHematology and Oncology10/05/23 Solomon Narayanan PA-C [address] [facility], [address] [address] Physician AssistantNeurosurlamberty12/12/23 Team Status: Inactive Member Role Status Dates Griselda Hastings DO Primary Care Provider Active Sta rt: June 24, 2024 End: June 24, 2024Mingo Blanton ProviderActiveStart: June 24, 2024 End: June 24, 2024Team MemberRelationshipSpecialtyStart DateEnd Date Griselda Hastings DO [address] [place], [place] [id number] PCP - General01/03/19 [place] [address] [place] [address] Consulting PhysicianHematology and Oncology10/05/23 Solomon Narayanan PA-C [address] [place] [address] Physician AssistantNeurosurgery12/12/23Team MemberRelationshipSpecialtyStart Date End Date Griselda Hastings DO [address] [place] [address] PCP - GeneralFamily Medicine02/13/23 Team Status: Inactive Member Role Status Dates Griselda Hastings DO Primary Care Provide r, Attending Provider Active Start: July 03, 2024 End: July 03, 2024Team MemberRelationshipSpecialtyStart DateEnd Date Griselda Hastings DO [address] [place] [address] PCP - GeneralFamily Medicine02/13/23Team MemberRelationshipSpecialtyStart DateEnd Date Griselda Hastings DO [address] [place] [address] PCP - GeneralFamely Medicine02/13/23 Team Status: Active Member Role Status Dates Griselda Hastings DO Primary Care Provider Active Sta rt: September 11, 2024 Jasson Mendozacounts [facility] ProviderActiveStart: September 11, 2024 Team Status: Inactive Member Role Status Dates Griselda Hastings DO Primary Care Provider Active Sta rt: September 11, 2024 End: September 11, 2024Keysha Guy PEDIATRIC SOCIAL WORKER-CAttending ProviderActiveStart: September 11, 2024 End: September 11, 2024Team MemberRelationshipSpecialtyStart DateEnd Date Griselda Hastings DO [facility] [place] [address] PCP - [facility]02/13/23 Team Status: Inactive Member Role Status Dates Griselda Hastings DO Primary Care Provider Active Sta rt: September 11, 2024 End: September 11, 2024Rafa Mendoza ProviderActiveStart: September 11, 2024 End: September 11, 2024 Team Status: Inactive Member Role Status Poornima Hastings DO Primary Care Provider Active Sta rt: September 20, 2024 End: September 20Danielle Kuhn ProviderActiveStart: September 20, 2024 End: September 20, 2024Team MemberRelationshipSpecialtyStart DateEnd Date Griselda Hastings DO PCP - [facility]02/13/23 Team Status: Inactive Member Role Status Poornima Hastings DO Primary Care Provider Active Sta rt: October 06, 2024 End: October 06Elias Griggs ProviderActiveStart: October 06, 2024 End: October 06, 2024 Team Status: Inactive Member Role Status Dates Griselda Hastings DO Primary Care Provide r, Other Provider Active Start: October 07, 2024 End: October 07Aby Griggs ProviderActiveStart: October 07, 2024 End: October 07, 2024 Team Status: Active Member Role Status Poornima Hastings DO Primary Care Provider Active Sta rt: October 10, 2024 Solomon Narayanan PA-CAttending ProviderActiveStart: October 10, 2024 Team Status: Inactive Member Role Status Poornima Hastings DO Primary Care Provider Active Sta rt: October 10, 2024 End: October 10, 2024Aby Gregory ProviderActiveStart: October 10, 2024 End: October 10, 2024 Team Status: Inactive Member Role Status Dates Griselda Hastings DO Primary Care Provider Active Sta rt: October 10, 2024 End: October 10, 2024RyMingo Rose ProviderActiveStart: October 10, 2024 End: October 10, 2024Team MemberRelationshipSpecialtyStart DateEnd Date Griselda Hastings DO [address] [place] [address] PCP - General01/03/19 [place] [address] [place] [address] Consulting PhysicianHematology and Oncology10/05/23 Solomon Narayanan PA-C [address] [place] [address] Physician AssistantNeurosurgery12/12/23Team MemberRelationshipSpecialtyStart Date End Date Griselda Hastings DO [address] [place] [address] PCP - General01/03/19 [place] [address] [place] [address] Consulting PhysicianHematology and Oncology10/05/23 Solomon Narayanan PA-C [address] [place] [address] Physician AssistantNeurosurgery12/12/23 Team Status: Inactive Member Role Status Dates Griselda Hastings DO Primary Care Provider Active Sta rt: October 27, 2024 End: October 27, 2024Linda Rafa Cason ProviderActiveStart: October 27, 2024 End: October 27, 2024Team MemberRelationshipSpecialtyStart DateEnd Date Griselda Hastings [address] [place] [address] PCP - GeneralFamily Medicine11/20/18 Griselda Hastings [address] [place] [address] Referringmi Medicine11/20/18 Oziel Cadena MD [address] [facility] [address] [place] [address] ReferringNeurology08/18/22Team MemberRelationshipSpecialtyStart DateEnd Date Griselda Hastings [address] [place] [phone] PCP - [facility] Medicine11/20/18 Griselda Hastings [address] [place] [phone] ReferringFami Medicine11/20/18 Oziel Cadena MD [address] [facility] [address]man [address] [place] [address], [place] [address] ReferringNeurology08/18/22Team MemberRelationshipSpecialtyStart DateEnd Date Griselda Hastings DO PCP - GeneralFamily Medicine02/13/23 Team Status: Active Member Role Status Dates Griselda Hastings DO Primary Care Provider Active Sta rt: November 03, 2024 QUENTIN Kelly-CAttenyong ProviderActiveStart: November 03, 2024 Team Status: Inactive Member Role Status Dates Griselda Hastings DO Primary Care Provider Active Sta rt: November 05, 2024 End: November 05, 2024Imad Asaad , MDAttending ProviderActiveStart: November 05, 2024 End: November 05, 2024 Team Status: Active Member Role Status Dates Griselda Hastings DO Primary Care Provider Active Sta rt: November 05, 2024 Imad Asahi , Rafa Provider, Other ProviderActiveStart: November 05, 2024 Team Status: Inactive Member Role Status Dates Griselda Hastings DO Primary Care Provider Active Sta rt: November 17, 2024 End: November 17, 2024Aby Gregory ProviderActiveStart: November 17, 2024 End: November 17, 2024 Team Status: Inactive Member Role Status Dates Griselda Hastings DO Primary Care Provide r, Attending Provider Active Start: November 19, 2024 End: November 19, 2024Team MemberRelationshipSpecialtyStart DateEnd Date Griselda Hastings DO PCP - [facility]02/13/23 Team Status: Inactive Member Role Status Dates Griselda Hastings DO Primary Care Provide r, Attending Provider Active Start: 2024 End: November 24, 2024Team MemberRelationshipSpecialtyStart DateEnd Date Griselda Hastings DO [facility] - [facility]02/13/23 Team Status: Active Member Role Status Dates Griselda Hastings DO Primary Care Provider Active Sta rt: November 05, 2024 Imhi Arango MDAttending ProviderActiveStart: November 05, 2024 Nevin Guido ProviderActiveStart: November 05, 2024 Team Status: Inactive Member Role Status Dates Griselda Hastings DO Primary Care Provider Active Sta rt: November 19, 2024 End: November 19rett Kuns , DOAttending ProviderActiveStart: November 19, 2024 End: November 19, 2024 Team Status: Inactive Member Role Status Dates Griselda Hastings DO Primary Care Provider Active Sta rt: 2024 End: November 24natalya Hastings , DOAttending ProviderActiveStart: 2024 End: 2024 Team Status: Inactive Member Role Status Dates Griselda Hastings DO Primary Care Provider Active Sta rt: January 12, 2025 End: January 12, 2025Aby Gregory ProviderActiveStart: January 12, 2025 End: January 12, 2025Team MemberRelationshipSpecialtyStart DateEnd Date Griselda Hastings DO PCP - [facility]02/13/23Team MemberRelationshipSpecialtyStart DateEnd Date Griselda Hastings DO PCP - [facility]02/13/23 Team Status: Active Member Role Status Dates Griselda Hastings DO Primary Care Provider Active Sta rt: January 27, 2025 Boubacarguillaume Roxy , MDAttending ProviderActiveStart: January 27, 2025 Team Status: Active Member Role Status Dates Griselda Hastings DO Primary Care Provider Active Sta rt: February 18, 2025 Sofia Juliet Arias , DOAttending ProviderActiveStart: February 18, 2025 Team Status: Inactive Member Role Status Dates Griselda Hastings DO Primary Care Provider Active Sta rt: February 19, 2025 End: February 19retdimitry Hastings , DOAttending ProviderActiveStart: February 19, 2025 End: February 19, 2025Team MemberRelationshipSpecialtyStart DateEnd Date Griselda Hastings DO [facility]02/13/23 Team Status: Inactive Member Role Status Dates Griselda Hastings DO Primary Care Provider Active Sta rt: February 26, 2025 End: February 26natalya Hastings DOAttending ProviderActiveStart: February 26, 2025 End: February 26, 2025Team MemberRelationshipSpecialtyStart DateEnd Date DarlingGriselda DO [facility] Team Status: Inactive Member Role Status Dates Griselda Hastings DO Primary Care Provider Active Sta rt: April 01, 2025 End: April 01natalya Hastings DOAtteleni ProviderActiveStart: April 01, 2025 End: April 01, 2025 Goals (unrecognized section and content) Goals from 12/28/2022 8:23 AM:Goal for Mobility : Maintain active lifestyle as tolerated Goals may be documented in an alternate section Scheduled Active and Recently Administ ered Medications (unrecognized section and content) Medication Order04/08// acetaminophen (Tylenol) tablet 650 mg 650 mg, oral, Every 6 hours, First dose on Sun04/09/24 at 1915, Phase II/On Unit, If ordered PRN for pain, nurse is permitted to administer this medication for higher pain scores based on patient preference? Yes * 2022 (Given - Provider: Elizabeth Esposito RN) * 0029 (Given - Provider: Elizabeth Esposito RN) * 0615 (Given - Provider: Elizabeth Esposito RN) * 1315 (Due) * 191 (Due) amLODIPine (Norvasc) tablet 10 mg 10 mg, oral, Daily, First dose on Sun04/09/24 at 1915, Phase II/On Unit * 2022 (Given - Provider: Elizabeth Esposito RN) * 1035 (Given - Provider: Whitney Kaufman RN) busPIRone (Buspar) tablet 5 mg 5 mg, oral, 2 times daily, First dose on Sun04/09/24 at 2100, Phase II/On Unit * 2014 (Not Given - Provider: Elizabeth Esposito RN - Reason: Patient/family refused) * 1035 (Given - Provider: Whitney Kaufman RN) * 2100 (Due) citalopram (CeleXA) tablet 10 mg 10 mg, oral, Daily, First dose on Sun04/10/24 at 0900, Phase II/On Unit * 1035 (Given - Provider: Whitney Kaufman RN) dexAMETHasone (Decadron) injection 6 mg (COMPLETED) 6 mg, intravenous, Once, On Sun04/09/24 at 2215, For 1 dose * 0006 (Given - Provider: Elizabeth Esposito RN) enoxaparin (Lovenox) syringe 40 mg 40 mg, subcutaneous, Every 24 hours, First dose on Sun04/10/24 at 0000, Phase II/On Unit, Indications: deep vein thrombosis prevention * 0007 (Given - Provider: Elizabeth Esposito RN) lisinopril tablet 10 mg 10 mg, oral, Daily, First dose on Sun04/09/24 at 1915, Phase II/On Unit, On hold since Sun04/09/2024 at 1857 until manually unheld * 185 (Held by provider - Provider: Chicho Bryan MD - Reason: Post-procedure) * 191 (Dose Auto Held) * 0900 (Canceled Entry - Provider: Whitney Kaufman RN - Comment: held by provider) oxygen (O2) therapy (CANCELED) inhalation, Continuous - Inhalation, First dose on Sun04/09/24 at 1715, Recovery (only), Device: Nasal Cannula, Rate in liters per minute: Other, Custom Value: 1-6 LPM, Keep O2 Sat Above: 92% * 1631 ([employer] - Provider: Goyo Agarwal RN - Comment: out of OR at 1631) * 1645 ([employer] - Provider: Goyo Agarwal RN) * 1715 (Due) polyethylene glycol (Glycolax, Miralax) packet 17 g 17 g, oral, 2 times daily, First dose on Sun04/09/24 at 2100, Phase II/On Unit, Bowel Regimen - for prevention of constipation. * 2009 (Not Given - Provider: Elizabeth Esposito RN - Reason: Patient/family refused) * 1034 (Given - Provider: Whitney Kaufman RN) * 2100 (Due) tiZANidine (Zanaflex) tablet 4 mg 4 mg, oral, Nightly, First dose on Sun04/09/24 at 2100, Phase II/On Unit * 2022 (Given - Provider: Elizabeth Esposito RN) * 2099 (Due) Medication Order// lactated Ringer's infusion (CANCELED) 20 mL/hr, intravenous, Continuous, Starting on Sun04/09/24 at 1215, Preprocedure * 1341 (New Bag - Provider: NAVEEN Bear Capp) * 1630 (Stopped - Provider: NAVEEN Reddy) * 163 (Continued from OR - Provider: Goyo Agarwal RN) * 145 (Due: Stopped - Provider: Nikole Lezama, PharmD) lactated Ringer's infusion 100 mL/hr, intravenous, Continuous, Starting on Sun04/09/24 at 1915, For 24 hours, Phase II/On Unit, Convert IV to saline lock when taking oral fluids. * 194 (Not Given - Provider: Elizabeth Esposito RN - Reason: Patient/family refused) Medication Order// albuterol 90 mcg/actuation inhaler 2 puff 2 puff, inhalation, Every 4 hours PRN, shortness of breath, Starting on Sun04/09/24 at 1857, PhaseII/On Unit, Shake well before use. bisacodyl (Dulcolax) [...] 1857, Phase II/On Unit, Indications: muscle spasm * 1036 (Given - Provider: Whitney Kaufman RN) dextrose 50 % injection [...] or equal to 40 mg/dL - see comments,For blood glucose less than or equal to [...] total of 4 mg regardless of dose. * 1800 (Given - Provider: Goyo Agarwal RN) HYDROmorphone (Dilaudid) injection 0.5 mg (CANCELED) 0.5 mg, intravenous, Every 5 min PRN, pain severe (7-10), first line, Starting on Sun04/09/24 at 1649, Recovery (only), Max total of 4 mg regardless of dose. * 1653 (Given - Provider: Goyo Agarwal RN) * 1730 (Given - Provider: Goyo Agarwal RN) HYDROmorphone PF (Dilaudid) injection 0.2 mg 0.2 mg, intravenous, Every 4 hours PRN, pain breakthrough, use oral first and only use IV if oral is ineffective or cannot take oral. Use as first line if no PO med ordered., Starting on Sun04/09/24at 1857, Phase II/On Unit lidocaine-epinephrine (Xylocaine W/EPI) 0.5 %-1:200,000 injection (CANCELED) As needed, Starting on Sun04/09/24 at 1430, Intraprocedure * 1430 (Given - Provider: Rojas Edwards MD) naloxone (Narcan) injection 0.2 mg 0.2 mg, intravenous, Every 5 min PRN, respiratory depression, Starting on Sun04/09/24 at 1857, Phase II/On Unit, If respiratory rate is less than 8 breaths/minute or patient is difficult to arouse stop any narcotics and contact physician. Administer slow IV push. Repeat as ordered until patient's r espiratory rate is greater than 12 breaths/minute. ondansetron [...] first line, Starting on Sun04/09/24 at 1857, PhaseII/On Unit, 1st Line. Use oral route first, [...] pain scores based on patient preference? Yes * 2025 (Given - Provider: Elizabeth Esposito RN) * 003 (Given - Provider: Elizabeth Esposito RN) * 0615 (Given - Provider: Elizabeth Esposito RN) oxyCODONE [...] needed, Starting on Sun04/09/24 at 1441, Intraprocedure * 1441 (Given - Provider: Rojas Edwards MD) sodium chloride 0.9 % irrigation solution (CANCELED) As needed, Starting on Sun04/09/24 at 1433, Intraprocedure * 1433 (Given - Provider: Rojas Edwards MD) thrombin-recombinant (Recothrom) 5,000 unit topical solution (CANCELED) As needed, Starting on Sun04/09/24 at 1433, Intraprocedure * 1433 (Given - Provider: Rojas Edwards MD - Comment: mixed with surgifoam) Order Group 1: ondansetron (Zofran) tablet 4 mgJump to med 4 mg, oral, Every 8 hours PRN, nausea/vomiting, first line, Starting on Sun04/09/24 at 1857, PhaseII/On Unit, 1st Line. Use oral route first, [...] BE BASED ON THE PRIMARY CLINICAL RECORDS. [facility]. provides no warranty or guarantee of the accuracy or completeness of information in this document.
--- NOTE | 2025-04-09 11:18 | PM.CN ---
Consult Note: HPI Data of Consult Patient: known to practice within the last 3 years Requesting Physician: Delia Bowser NP Primary Care Provider: GRISELDA KRAUSE Consult Narrative Reason for consult: left shoulder/arm and right hip pain Narrative: Jovani Kong a pleasant 64 year old male presents for evaluation and management of chronic left shoulder pain and right hip pain, hx of OA unresponsive to > 6 weeks of HEP, heat, ice, tylenol, nsaids. recently underwent left suprascapular/axillary nerve block with >80% improvement in pain while anesthetized, preop pain up to 10/10 post op pain 06/27. today left shoulder and right low back 7/10 aching. notes increased pain with standing, walking, lifting, adls, activity, pushing, pulling. cc:: CC: Delia Bowser NP Review of Systems ROS Musculoskeletal Reports: extremity pain and joint pain PFSH [facility] Medical History (Updated 04/09/25 @ 11:20 by Delia Bowser NP) Tongue carcinoma ?C02.9 - Malignant neoplasm of tongue, unspecified (ICD-10) First degree AV block ?I44.0 - Atrioventricular block, first degree (ICD-10) Claudication of both lower extremities ?I73.9 - Peripheral vascular disease, unspecified (ICD-10) Nicotine dependence with current use ?F17.200 - Nicotine dependence, unspecified, uncomplicated (ICD-10) Oral cancer ?C06.9 - Malignant neoplasm of mouth, unspecified (ICD-10) Cervical radiculopathy ?M54.12 - Radiculopathy, cervical region (ICD-10) Myofascial pain ?M79.18 - Myalgia, other site (ICD-10) Mononeuropathy of left suprascapular nerve ?G56.82 - Other specified mononeuropathies of left upper limb (ICD-10) Neuropathy, axillary nerve ?G56.90 - Unspecified mononeuropathy of unspecified upper limb (ICD-10) Cervical spondylosis ?M47.812 - Spondylosis without myelopathy or radiculopathy, cervical region (ICD-10) Degenerative disc disease, cervical ?M50.30 - Other cervical disc degeneration, unspecified cervical region (ICD-10) Chronic prescription opiate use ?Z79.891 - assisted (current) use of opiate analgesic (ICD-10) Myalgia, other site ?M79.18 - Myalgia, other site (ICD-10) Malignant neoplasm of head and neck ?C76.0 - Malignant neoplasm of head, face and neck (ICD-10) Squamous cell carcinoma Skin cancer ?C44.90 - Unspecified malignant neoplasm of skin, unspecified (ICD-10) Osteoarthritis ?M19.90 - Unspecified osteoarthritis, unspecified site (ICD-10) Depression ?F32.A - Depression, unspecified (ICD-10) Anxiety ?F41.9 - Anxiety disorder, unspecified (ICD-10) Seasonal allergies ?J30.2 - Other seasonal allergic rhinitis (ICD-10) Cataract ?H26.9 - Unspecified cataract (ICD-10) GERD (gastroesophageal reflux disease) ?K21.9 - Gastro-esophageal reflux disease without esophagitis (ICD-10) Dyspnea on exertion ?R06.09 - Other forms of dyspnea (ICD-10) PVD (peripheral vascular disease) ?I73.9 - Peripheral vascular disease, unspecified (ICD-10) High cholesterol ?E78.00 - Pure hypercholesterolemia, unspecified (ICD-10) Neck pain ?M54.2 - Cervicalgia (ICD-10) Low back pain ?M54.50 - Low back pain, unspecified (ICD-10) Smoker ?F17.200 - Nicotine dependence, unspecified, uncomplicated (ICD-10) Irregular heart beat ?I49.9 - Cardiac arrhythmia, unspecified (ICD-10) Hypertension ?I10 - Essential (primary) hypertension (ICD-10) Surgical History Status post surgical removal of malignant neoplasm of skin ?Z98.890 - Other specified postprocedural states (ICD-10) History of tonsillectomy ?Z90.89 - Acquired absence of other organs (ICD-10) Status post cervical spinal fusion ?Z98.1 - Arthrodesis status (ICD-10) Cataract extraction status of left eye ?Z98.42 - Cataract extraction status, left eye (ICD-10) H/O cervical spine surgery ?Z98.890 - Other specified postprocedural states (ICD-10) H/O neck dissection ?Z98.890 - Other specified postprocedural states (ICD-10) Family History Other Family history of COPD (chronic obstructive pulmonary disease) Family history of diabetes mellitus Family history of emphysema Family history of heart disease Family history of hypertension Family history of stroke Family history of throat cancer Social History Within the past year, how often did you have a drink containing alcohol: never Score interpretation: A score less than 4 is consistent with normal alcohol consumption. Smoking status: Current every day smoker Non-prescribed substance use: denies use Previous occupational history: disabled Highest level of school completed/degree received: high school graduate Little interest or pleasure in doing things: not at all Feeling down, depressed, or hopeless: not at all Meds Home Medications and Allergies Home Medications ?Medication ?Instructions ?Recorded ?Confirmed ?Type amlodipine 5 mg tablet (Norvasc) 10 mg PO DAILY 04/16/23 03/30/25 History aspirin 81 mg tablet,delayed 81 mg PO DAILY 04/16/23 03/30/25 History release (Adult Low Dose Aspirin) naloxone 4 mg/actuation nasal 4 mg intranasal Q2M PRN opioid 09/11/24 03/30/25 Rx spray (Narcan) overdose #2 ea hydrocodone 7.5 mg-acetaminophen 1 tab PO BID PRN pain #60 tabs 01/01/25 03/30/25 Rx 325 mg tablet alirocumab 75 mg/mL subcutaneous 75 mg subcut Q14D 01/27/25 03/30/25 History pen injector (Praluent Pen) citalopram 10 mg tablet 10 mg PO DAILY 01/27/25 03/30/25 History ezetimibe 10 mg tablet 10 mg PO DAILY 01/27/25 03/30/25 History multivitamin (Daily Multi-Vitamin 1 tab PO DAILY 01/27/25 03/30/25 History tablet) pantoprazole 40 mg tablet,delayed 40 mg PO Q12H 01/27/25 03/30/25 History release pravastatin 40 mg tablet 40 mg PO DAILY 01/27/25 03/30/25 History tizanidine 4 mg capsule 4 mg PO Q12H 01/27/25 03/30/25 History hydrocodone 7.5 mg-acetaminophen 1 tab PO BID PRN pain #60 tabs 03/04/25 03/30/25 Rx 325 mg tablet hydrocodone 7.5 mg-acetaminophen 1 tab PO BID PRN pain #60 tabs 04/02/25 Rx 325 mg tablet Allergies Allergy/AdvReac Type Severity Reaction Status Date / Time cephalexin (From Keflex) Allergy Unknown hives Verified 03/30/25 08:35 Exam Constitutional Documenting provider has reviewed patient's vital signs: yes Common normals: no apparent distress, oriented x3, healthy appearing, alert and well nourished General appearance: cooperative HENMT Common normals: normocephalic, hearing grossly normal bilaterally and moist oral mucous membranes Head and scalp: normocephalic Eye Common normals: PERRL Pupil: PERRL Neck & C-Spine General: normal visual inspection Cervical spine: cervical ROM abnormal and pain with cervical ROM Chest Common normals: inspection of chest normal Respiratory Common normals: normal respiratory effort, no retractions and no use of accessory muscles Back & Pelvis Lumbar spine/lower back: ROM limited, pain with ROM and lumbar spinal tenderness Sacroiliac joints: SI joint(s) abnormal Other: right sij positive elyse(patricks), gaenslens, thigh thrust, compression test Extremity Left upper extremity: shoulder joint Other: left shoulder positive posterior liftoff, apleys scratch test, empty can test. increased pain with overhead ROM. strength 4/5 in LUE and 5/5 in RUE Neuro Common normals: oriented x3 Sensorium/orientation: alert Psych Common normals: mental status grossly normal, thought process normal, cooperative, affect normal, speech normal and activity/motor behavior normal Speech: normal speech Thought process: normal thought process Results Additional Findings Additional findings: If on a controlled substance or opioids, I have checked an [place] report on this patient and there are no aberrancies noted in the prescribing history.??If on a controlled substance or opioid a drug screen was completed and reviewed within the last year, and if there has not been a drug screen completed we ordered one today to monitor higher risk, state monitored pain medication use. As part of providing excellent, safe, comprehensive care, the following was completed at our patient's visit: 1. A medication reconciliation and review to ensure accurate knowledge of current/active medications, including asking our patients to inform us about any [id number] medications or herbal remedies/nutritional supplements/alternative remedies. 2. A review to specifically ensure our patients have had annual screening for screening for depression, screening for tobacco use, and screening for unhealthy alcohol use. For concerning screenings had a discussion with the patient, provided patient education, and recommended follow-up with primary care provider when appropriate. If patient noted with a risk of falling, they received education on strength, gait, and balance training to prevent future risk of falling. Portions of this note may have been carried over from the previous visit and updated as appropriate. Please note this office utilizes paper charting in addition to the electronic medical record. A list of current medications, vitals, and PMH is available there as the clinical staff outside of myself do not have access to [facility] charting during the clinic day operations. As part of providing quality comprehensive care the current medications, vitals, and PMH were reviewed in the paper chart. 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 Patient has completed >6 weeks of guided home exercise program and/or formal physical therapy program without relief of their symptoms.? I have reviewed the imaging of the left shoulder and no red flags were identified.? The imaging reveals radiographic findings consistent with OA The Oswestry Disability Index was completed, and the patient scored a 22%.? left suprascapular and axillary RFA for left shoulder pain/oa under fluoroscopy continue pregabalin 50mg hs right hip/sij xray reviewed with pt. we discussed his significant right SIJ pain on exam however he would like to further address his low back pain with an xray and MRI. at this time will update lumbar xray with flexion prior to lumbar MRI continue HEP as tolerated f/u 1 month after RFA complete for left shoulder pain
== END 2025-04-09 10:56 | disposition home or self-care (01) ==
LOC: PM 10:55
PROVIDERS: PCP Family Medicine; Visit Provider Nurse Practitioner
DX: M48.062 Spinal stenosis, lumbar region with neurogenic claudication (principal); M47.816 Spondylosis without myelopathy or radiculopathy, lumbar region; M25.512 Pain in left shoulder; M19.012 Primary osteoarthritis, left shoulder; M46.1 Sacroiliitis, not elsewhere classified; G62.9 Polyneuropathy, unspecified; G58.8 Other specified mononeuropathies
CPT/HCPCS: 72114; G0463

== ENCOUNTER 2025-04-09 11:42 | Outpatient (OUT) | payer MEDICARE, OTHER, SELFPAY ==
--- OUTSIDE RECORDS SUMMARY | 2025-04-09 11:51 | XMS_ITS | Clinical Summary ---
Author Organization [facility] Healthcare Address [address] [place] [address] Care Team Providers Care Promotions Specialist Name Role Phone Andreagideon Jax Neisha JOSÉ Primary Care Provider [phone] Allergies Active AllergyReactionsCriticalityNoted ZmyjHfzvzzivYucjdizcckXdici08/10/2019 Other Reaction(s): hives, Unknown Medications MedicationSigDispense QuantityRefillsLast [...] tablet Take 40 mg by mouth at khqqbrr0707/06/2023ctive lisinopril 5 MG tablet Take 5 mg by mouth Daily09/05/2023ctive Brexpiprazole 1 MG tablet 08/02/2023ctive HYDROcodone-acetaminophen ([place]) 5-325 MG tablet 10/10/2023ctive terbinafine (LamISIL AT) 1 % cream Indications:Tinea manuumApply to the affected area on the hand, bid, 30 day supply 42 g ctive albuterol HFA 90 mcg/act inhaler Inhale 2 puffs every 4 (four) hours if kkxoxv2804/10/2024ctive tiZANidine (Zanaflex) 4 MG capsule Indications:Cervical stenosis of spinal canaltizanidine 4 mg capsule take 1 capsule by mouth twice a day if needed for MUSCLE SPASTICITY 60 capsule 5Active dexAMETHasone (Decadron) 2 MG tablet Indications:Cervical stenosis of spinal pkcgo0yc 3 pills po X3 days,2 pills po daily X3 days , then 1 pill po daily X3 days then stop 9 days 18 pills 18 tablet 5ActiveHospital, Clinic, or Other Facility Administered Medication Ordered DoseRouteFrequencyStart DateEnd DateStatus dexAMETHasone sod phos (Decadron) injection 4 mg Indications:Other nerve root and plexus disorders,Acute pain of left shoulder, Acute pain of right shoulder4 kpMPDhff37Ended bupivacaine (Marcaine) 0.5 % injection 5 mg Indications:Other nerve root and plexus disorders,Acute pain of left shoulder, Acute pain of right shoulder5 ptDYYial32Ended bupivacaine (Marcaine) 0.5 % injection 5 mg Indications:Other nerve root and plexus disorders,Acute pain of left shoulder, Acute pain of right shoulder5 caRAEfbb23Ended Active Problems ProblemNoted DateDiagnosed DateNerve root and plexus disorder, unspecified 08/05/2024Other nerve root and plexus vqumtinip51/05/2024AD (coronary artery disease)02/26/2024Senile xlywexezpzfr77/18/2024Generalized anxiety disorder 12/12/2023cute effusion of left ear10/16/2023cute left-sided thoracic back pain10/16/2023cute ufuyxnrwn76/30/2024nxiety and axjfdpnjjk78/30/2024V bloc first pvpgdf1610/16/2023rain mass10/16/2023urning rkneqeiak97/30/2024ardiac edbktbfrjf36/30/2024roductive cough10/16/2023AD (peripheral artery disease) 10/16/20235264Lyeksixcpdceew60/30/2024Heart block10/16/2023Essential hypertension 10/16/2023yshidrotic mygtnl6910/16/2023History of oral pdcgcd1710/16/2023izziness 10/16/2023aresthesia of left lower bgoodjrnp31/30/2024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/16/20235707Uflkhmog16/13/2024entral pontine kkxlskesckqx30/13/2024igarette nicotine dependence with nicotine-induced /27/2024bnormal brain MRI 08/14/20231368Psbvwmasiof59/05/2024cute pain of left oxslloms88/05/2024ervical eynmgfse08/16/2024adicular pain in left arm04/04/2023ervical radiculopathy 03/01/2023reglaucoma, unspecified, right eye12/29/2022Visual disturbance 12/29/20228017Qaxtnwaz50/14/2023Ulnar laypuydkda23/14/2023ain in left arm12/29/2022 Skin sensation /14/2023ervical paraspinal muscle spasm12/29/2022 Cervical stenosis of spinal canal12/29/2022egeneration of cervical intervertebral disc12/10/2022ge-related nuclear cataract of right eye12/10/2022 Impairment of qepsxbo0812/10/20223540Vvcrsyzk51/25/2023Lumbar vaheqdurfftld53/25/2023 Magnetic resonance imaging of brain ljtsjyom57/25/2023Malignant (primary) neoplasm, gqizvfqhpwr36/25/2600Swysqlsu35/25/0667Ivhsqoc36/25/2023Schwannoma 12/10/20220288Vdqqffqnfpgn78/25/2023Secondary and unspecified malignant neoplasm of lymph node, yhbfvwmqlop96/25/2023Vertigo of central wssbvs2312/10/2022Occipital vbbcxwbma76/25/2023rachial nayscudovi27/08/2023Occipital neuralgia of right side11/23/2022Neck pain11/23/2022Lung durtmpe6810/13/2021rimary squamous cell carcinoma of head and neck10/13/2021 Resolved Problems ProblemNoted DateDiagnosed DateResolved DateGlioma of brain/06/2023 Encounters DateTypeDepartmentCare DrheXeosppultlm84/07/2025Telephone [facility] [place] [facility] [address] [place] [phone] Ary Lugo, RT. R 03/24/2025Telephone [facility] [address] [place] [phone] Ary Lugo, RT. R 03/18/2025 11:30 AM EDTClinical Support [facility] [place] [facility] [address] [place] [phone] Oziel Cadena MD Other nerve root and plexus disorders (Primary Dx); Acute pain of left shoulder; Acute pain of right ekbkuwyf44/01/2025amboo flowsheet [facility] [address] [place] [address] Oziel Cadena MD 03/18/20259704Weusge02/30/9351Avzlmb86/20/2025 2:30 PM EDTClinical Support [facility] [address] [place] [phone] Oziel Cadena MD Acute pain of right shoulder (Primary Dx); Nerve root and plexus disorder, unspecified; Acute pain of left ndsmyzgf01/20/2025amb flowsheet [facility] [address] [place] [address] Oziel Cadena MD 02/04/20255088Qesbxs04/13/8929Nhuaav02/12/2025Telephone [facility] [address] [place] [phone] Mayte Morrison MA 01/08/2025 10:20 AM EDTOffice Visit [facility] [address] [place] [address] Anahi Franco PA Melanocytic nevus of trunk (Primary Dx); Seborrheic keratosis; Inflamed seborrheic keratosis; Actinic keratosis; Capillary angioma; History of SCC (squamous cell carcinoma) of skin01/08/2025amboo flowsheet [facility] [place] [facility] [address] [place] [address] Anahi Franco PA 01/08/20252963Fmwffn55/23/2025Travelfrom Last 3 Months Immunizations ImmunizationAdministration DatesNext JrgLzll6703/15/2014 Family History Medical HistoryRelationNameCommentsCancerFatherStrokeFatherHypertensionMother RelationNameStatusCommentsFatherDeceasedMotherAlive Social History Tobacco UseTypesPacks/DayYears UsedDateSmoking Tobacco: Every DayCigarettes Smokeless Tobacco: Never Tobacco Cessation:Ready to Q uit: Not Asked; Counseling Given: Not Answered Comments:6-10 cigarettes/day Alcohol UseStandard Drinks/WeekCommentsNot Currently0 (1 standard drink = 0.6 oz pure alcohol)Sex and Gender InformationValueDate RecordedSex Assigned at Male11/22/2022 2:37 PM EDTLegal LgzLirv6208/30/2022 7:14 PM EDTGender IdentityMale 11/22/2022 2:37 PM EDTSexual IarchfuxffzMosdshvt92/07/2023 2:37 PM EDT Last Filed Vital Signs Vital SignReadingTime TakenCommentsBlood Tkigstwl157/9308 2:41 PM EDT Eepjq80410/20/2025 2:41 PM DEAToivhcvybfj94.5 ??C (97.7 ??F)10/04/2023 11:33 AM EDTRespiratory Poch115409/10/2023 10:29 AM EDTOxygen Pymgtezypq25%10/04/2023 11:33 AM EDTInhaled Oxygen Concentration--Rgwhyz12.1 kg (159 lb)02/04/2025 2:41 PM FHJQhklvu813.7 cm (5' 8 )05/21/2024 2:04 PM ESTBody Mass Index24.18107/22/2023 2:04 PM EST Plan of Treatment DateTypeDepartmentCare Team (Latest Contact Info)Uxyafivcnew99/13/2025 2:00 PM ESTClinical Support [facility] [address] [place] [address] Oziel Cadena MD [address] [facility] [address] [id number] 01/08/2026 8:30 AM EDTOffice Visit [facility] [address] [place] [address] Anahi Franco PA [address] [place] [address] Health MaintenanceDue DateLast DoneCommentsCT Tyqbdsodgkix76/09/1963Colonoscopy 1962Colorectal Cancer Xquxfyjun19/09/1963FIT-DNA1962FIT1962 FOBT1962 8765Tgxshgwrpdbvp46/09/1963Influenza Vaccine (#1)2025 Procedures Procedure NamePriorityDate/TimeAssociated DiagnosisCommentsCRYOTHERAPY SKIN NOEEMYBdshkhc38/24/2025 10:27 AM EDT Inflamed seborrheic keratosis CRYOTHERAPY SKIN DULPVDKnbgvph62/24/2025 10:23 AM EDT Actinic keratosis from Last 3 Months Results * Cryotherapy, skin lesion (01/08/2025 10:27 AM EDT) Narrative Authorizing ProviderResult TypeResult StatusRylee Northst. vincent's [facility] PADERM PROCEDURE ORDERABLESFinal Result * Cryotherapy, skin lesion (01/08/2025 10:23 AM EDT) Narrative Authorizing ProviderResult TypeResult StatusRyleTenet St. Louis PADERM PROCEDURE ORDERABLESFinal Result from Last 3 Months Insurance Care Teams Team MemberRelationshipSpecialtyStart DateEnd Jax Hastings DO PCP - GeneralFamily Medicine02/13/23
--- OUTSIDE RECORDS SUMMARY | 2025-04-09 11:51 | XMS_ITS | Clinical Summary ---
Author Organization [facility] Address [address] [place] [address] Phone Care Team Providers Care Division Order Analyst Name Role Phone Jax Hastings Neisha DO Primary Care Provider [phone] Helder Saleem MD Unavailable René Narayanan PA-C Unavailable [phone] Allergies Active AllergyReactionsCriticalityNoted FfqlZjkyarsiHcvlqcJtpus09/19/2024 Medications MedicationSigDispense QuantityRefillsLast FilledStart DateEnd DateStatus amLODIPine [...] ProblemNoted DateDiagnosed DateCAD (coronary artery disease)02/26/2024eripheral vascular vbpzhgb2502/26/2024ervical vrbjtqvejbmyl55/18/2024Senile osteoporosis 01/03/2024 Family History Medical HistoryRelationNameCommentsThroat cancerFatherbladder [...] homeless or living in a mcc (including now)?No04/09/2024Sex and Gender InformationValueDate RecordedSex Assigned at OasywUqos05/29/2024 6:37 PM EDTLegal JqcZraf97/26/2022 3:14 AM ESTGender CeqhylnrIsik88/29/2024 6:37 PM EDTSexual OrientationStraight 09/14/2023 6:37 PM EDT Last Filed Vital Signs Vital SignReadingTime TakenCommentsBlood Clmpayeb579/60010/13/2024 9:06 AM EDT Becwg622610/13/2024 9:06 AM EFVOlrrybzxhtb68.7 ??C (98.1 ??F)04/10/2024 12:11 PM EDTRespiratory Qawc7672 12:11 PM EDTOxygen Dfwwccshpq92%04/10/2024 9:20 AM EDTInhaled Oxygen Concentration--Wximyq90.2 kg (168 lb)10/13/2024 9:06 AM EDT Ukstag313.7 cm (5' 8 )10/13/2024 9:06 AM EDTBody Mass Index25.54010/13/2024 9:06 AM EDT Plan of Treatment DateTypeDepartmentCare Team (Latest Contact Info)Qulsjyddawc65/10/2026 9:00 AM EDTOffice Visit [facility] [address] [facility] [address] [place] [address] Doretha Harris MD [address] [place] [address] Health MaintenanceDue DateLast DoneCommentsCT Krendkqjfztw73/09/1963Colonoscopy 1962Colorectal Cancer Sbtnauupl47/09/1963FIT-DNA (Cologuard)1962FIT 1962HIV Qfefuyici89/09/1963Lipid Panel1962Medicare Annual Wellness Visit (AWV)1962 4158Ukwswyeetjcyr98/09/1963MMR Vaccines (1 of 1 - Standard series)11/25/1963Hepatitis C Yylnponmv06/09/1981Pneumococcal Vaccine (1 of 2 - PCV)1981Lung Cancer Unqkclsck79/09/2013PSA Prostate Cancer Screening 2012Zoster Vaccines (1 of 2)2012RSV High Risk: (Elderly (60+) or Population) (1 - Risk 60-74 years 1-dose series)3DTaP/Tdap/Td Vaccines (2 - Td or Tdap)Influenza Vaccine (#1)2025 COVID-19 Vaccine (1 - season)2025Diabetes Auurrkggw27/24/2025 04/10/2024, 02/11/2024, 02/01/2019, Additional history existsBone Density Scan Ivarxeyrjwap67/28/2024HIB VaccinesAged OutNo longer eligible based on patient's [...] Lordotic 6 X 11 X 14 - [id number] - [id number] Implanted:Qty: 1 on 04/09/2024 [facility]: [employer]03/14/[id number] / [id number] / Allograft, Triad Lordotic 6 X 11 X 14 - [id number] - [id number] Implanted:Qty: 1 on 04/09/2024 [facility]: [employer]04/29/[id number] / [id number] / Plate, Acp, 1.6v, 2 Level, 34mm - [id number] Implanted:Qty: 1 on 04/09/2024 by [facility]: [employer] [id number] / / Screw, Acp, Self Drill, 3.5 X 17mm, Variable - [id number] Implanted:Qty: 2 on 04/09/2024 by [facility]: [employer] [id number] / / 3.5 X 19mm Screw Implanted:Qty: 4 on 04/09/2024 [facility] [employer] [id number] / / Description:per bill only jdr 04/10 Procedures Procedure NamePriorityDate/TimeAssociated DiagnosisCommentsBASIC METABOLIC PANEL Kuroiyo9404/10/2024 9:19 AM EDT DEXA BONE FMGZLZVBsprrro73/28/2024 10:50 AM EDT Cervical radiculopathy from Last 3 Months or Most Recently Relevant to Health Maintenance Results * (ABNORMAL) Basic metabolic panel (04/10/2024 9:19 AM EDT)ComponentValueRef RangeTest MethodAnalysis TimePerformed AtPathologist OzjfpnocaBnkdfmu736(H)74 - 99 mg/dL LAB CHEMISTRY METHOD 04/10/2024 10:32 AM [facility] MTDZiiqou730819 - 145 mmol/L LAB CHEMISTRY METHOD 04/10/2024 10:[facility] LABPotassium4.53.5 - 5.3 mmol/L LAB CHEMISTRY METHOD 04/10/2024 10:32 AM [facility] BWYWkalcsin76505 - 107 mmol/L LAB CHEMISTRY METHOD 04/10/2024 10:32 AM [facility] NVBAqtwjglxqyx0860 - 32 mmol/L LAB CHEMISTRY METHOD 04/10/2024 10:32 AM [facility] LABAnion Tkz1210 - 20 mmol/L LAB CHEMISTRY METHOD 04/10/2024 10:32 AM [facility] LABUrea Dmycmrsm293 - 23 mg/dL LAB CHEMISTRY METHOD 04/10/2024 10:32 AM [facility] LABCreatinine0.860.50 - 1.30 mg/dL LAB CHEMISTRY METHOD 04/10/2024 10:32 AM [facility] LABeGFR>90>60 mL/min/1.73m*2 LAB CHEMISTRY METHOD 04/10/2024 10:32 AM [facility] LABComment: Calculations of estimated GFR are performed using the 2020 CKD-EPI Study Refit equation without therace variable for the IDMS-Traceable creatinine methods. https://jasn.asnjournals.org/content//ASN.9417332066 Calcium9.08.6 - 10.6 mg/dL LAB CHEMISTRY METHOD 04/10/2024 10:32 AM [facility] LABSpecimen (Source)Anatomical Location / LateralityCollection Method / VolumeCollection TimeReceived TimeBloodVenous blood specimen / UnknownVenipuncture / Lpknvvo8304/10/2024 9:19 AM EDT1 10:03 AM EDT Narrative Authorizing ProviderResult TypeResult StatusXiaodale Harris MDLAB BLOOD ORDERABLES Final ResultPerforming OrganizationAddressCity/State/ZIP CodePhone Number [address] [address] * XR DEXA bone density (02/13/2024 10:50 AM EDT)Specimen (Source)Anatomical Location / LateralityCollection Method / VolumeCollection TimeReceived Time 12/29/2024 8:11 AM EDT12/29/2024 8:11 AM EDT [facility]ressions [facility] - 12/29/2024 8:09 AM EDT DEXA: Moderately low bone mineral density ?? FRAX and Z-Score calculations include ethnicity in determining the score for these values, as determined by organizations such as the NIH, WHO and NOF. ?? All images and detailed analysis are available on the Radiology PACS. ?? MACRO: None ?? Signed by: Ruddy Lopez 12/29/2024 8:09 AM Dictation workstation: ?? [id number] [facility] - 12/29/2024 8:09 AM EDT Interpreted By: Ruddy Lopez, STUDY: DEXA BONE DENSITY02/13/2024 10:50 am ?? INDICATION: Signs/Symptoms:r/o osteoporosis, NEED AXIAL SKELETON IMAGES.. The patient is a 63 y/o ??year old M. ?? ,M54.12 Radiculopathy, cervical region ?? COMPARISON: None. ?? ACCESSION NUMBER(S): [id number] ?? ORDERING CLINICIAN: DORETHA HARRIS ?? TECHNIQUE: [...] Radiculopathy, cervical region COMPARISON: None. ACCESSION NUMBER(S): [id number] ORDERING CLINICIAN: DORETHA HARRIS TECHNIQUE: DEXA BONE [...] Ruddy Lopez 12/29/2024 8:09 AM Dictation workstation: [id number] Authorizing ProviderResult TypeResult StatusXiaodale EDMONDSON DXA PROCEDURES Final ResultPerforming OrganizationAddressCity/State/ZIP CodePhone Number [facility]AL from Last 3 Months or Most Recently Relevant to Health Maintenance Additional Health Concerns Active ProblemsNoted DateDiagnosed DatePatient has spine yhjxhjn1401/09/2024 Insurance * Guarantor: Se Kong TypeRelation to PatientDate of BirthPhoneBilbeckley [facility] AddressPersonal/KluogtJmal98/09/1961 [address] [place] [address] Advance Directives For more information, please contact: [phone] (Available ) TypeDate RecordedPatient RepresentativeExplanationLiving Will10/05/2023 9:39 AM * Full Code (Latest Code Status on File) Date ActivatedDate CmbwmtlzsjzNafktcpf56/23/2024 6:57 PMQuestionAnswerComments Plan of Care:* Code Status Discussion Completed Decision Maker:* Patient * Full Code Date ActivatedDate HmqrbzldxqzXgvzcgkp56/23/2024 11:50 AM04/09/2024 6:57 PM QuestionAnswerCommentsPlan of Care:* Code Status Discussion Completed Decision Maker:* Patient Care Teams Team MemberRelationshipSpecialtyStart DateEnd Date Jax Hastings DO [address] [place] [address] [facility]01/03/19 [place] [address] [place] [address] Consulting PhysicianHematology and Oncology10/05/23 René Narayanan PA-C [address] [place] [address] Physician AssistantNeurosurgery12/12/23
--- OUTSIDE RECORDS SUMMARY | 2025-04-09 11:51 | XMS_ITS | Clinical Summary ---
Author Organization [facility] Address [address] [facility] [address], [address] [place] [address] Care Team Providers Care Dust Handler Name Role Phone Jax Hastings DO Primary Care Provider [phone] Allergies Active AllergyReactionsCriticalityNoted PukpPbymhgbmNtecirttawSzbdy32/10/2019 Other Reaction(s): hives, Unknown Medications MedicationSigDispense QuantityRefillsLast FilledStart DateEnd DateStatus albuterol sulfate HFA (PROVENTIL;VENTOLIN;PROAIR) 108 (90 Base) MCG/ACT inhaler Inhale 2 puffs into the lungs every 4 hours as hmlews6307/02/2023ctive amLODIPine (NORVASC) 5 MG tablet Take 1 [...] 2 tablets by mouth at bedtime if hlmxko8705/26/2022ctive indomethacin (INDOCIN SR) 75 MG extended release capsule indomethacin ER 75 mg capsule,extended release take 1 capsule by mouth once daily with foodActive montelukast (SINGULAIR) 10 MG tablet montelukast 10 mg tablet take 1 tablet by mouth at esnkfoh14/20/2023Active mirtazapine (REMERON) 15 MG tablet take 1/2 [...] RecordedSex Assigned at BirthNot on file Legal GmeWolq05/27/2023 9:50 AM ESTGender IdentityNot on fileSexual Orientation Not on file Last Filed Vital Signs Vital SignReadingTime TakenCommentsBlood Uequtgxm400/78011/05/2023 10:44 AM EDT Pulse--Refyojkaecd92.3 ??C (97.4 ??F)11/05/2023 10:44 AM EDTRespiratory Rate-- Oxygen Saturation--Inhaled Oxygen Concentration--Sicmhz10.6 kg (180 lb) 11/05/2023 10:44 AM FDYUmahdr995.7 cm (5' 8 )11/05/2023 10:44 AM EDTBody Mass Index27.37011/05/2023 10:44 AM EDT Plan of Treatment Health MaintenanceDue DateLast DoneCommentsDepression Yqlpfs8911/24/1974HIV screen 1977Hepatitis C xjqlff5511/24/1980Pneumococcal 50+ years Vaccine (1 of 2 - PCV)11/24/19816629Xbnrji46/09/8609Cqaznivqkdk32/09/2008Colorectal Cancer Screen 11/25/2007FIT/FOBT: Average risk11/25/2007Fecal-DNA (Cologuard): Average risk 11/25/2007Sigmoidoscopy/CT naxtgkouevmk42/09/2008Shingles vaccine (1 of 2) 2012DTaP/Tdap/Td vaccine (2 [...] Hastings DO [address] [place] [id number] PCP - [facility]Che[facility] Centerly Galxikkr10/27/23
--- OUTSIDE RECORDS SUMMARY | 2025-04-09 11:51 | XMS_ITS | Clinical Summary ---
Author Organization [facility] Address [address] [place] [address] Care Team Providers Care Disbursing Agent Name Role Phone Jax Hastings Primary Care Provider [phone] Jax Hastings Unavailable [phone] Oziel Cadena MD Unavailable [phone] Allergies Active AllergyReactionsCriticalityNoted NjxkLbcmqhjmHsyvjoyoerMuhry23/10/2019 Medications MedicationSigDispense QuantityRefillsLast FilledStart DateEnd DateStatus citalopram [...] 2 tablets by mouth at bedtime if mrpehg1805/26/2022ctive mirtazapine (REMERON) 15 mg tablet Take by [...] cell carcinoma of head and neck 10/13/2021Lung fymcajf9510/13/2021Glioma of brain10/13/2021 Immunizations ImmunizationAdministration DatesNext Duetetanus diphtheria pertussis (Tdap) vaccine, age 7+ yr (ADACEL, BOOSTRIX)03/15/2014 Family History Medical HistoryRelationCommentsCancerFatherBladder cancer, Larynx cancerCancer Paternal GrandfathercancerRelationStatusCommentsFatherDeceasedPaternal GrandfatherDeceased Social History Tobacco UseTypesPacks/DayYears UsedDateSmoking Tobacco: FormerCigarettes1.540 Smokeless Tobacco: Never Comments:quit smoking 01/2019 Alcohol UseStandard Drinks/WeekCommentsNot Currently0 (1 standard drink = 0.6 oz pure alcohol)quit 2002PHQ-2AnswerDate RecordedPHQ-2 ycvvj130rea Deprivation IndexAnswerDate RecordedNational Score (1-100), lower number is lower vajw3315State Score (1-10), lower number is lower budk880 Data from: https://www.neighborhoodatlas.medicine.[facility]/. Last address used for xwjzeulcuih[address]11/03/2022Sex and Gender InformationValueDate RecordedSex Assigned at UxkcyKksb24/05/2023 2:46 PM EDTLegal TbdOcrh8011/19/2018 10:55 AM EDTGender PxvqlgnjIlhy14/05/2023 2:46 PM EDTSexual OrientationStraight 09/20/2022 2:46 PM EDTOccupationIndustryJob Start DateJob End DateGliddenNot on fileNot on fileNot on fileTree ServiceNot on fileNot on fileNot on file Last Filed Vital Signs Vital SignReadingTime TakenCommentsBlood Psdmnplk280/8905 9:23 AM EDT Wwuxc9586/23/2025 9:23 AM BEXIrnqpmhhxnt54.4 ??C (97.5 ??F)11/07/2024 9:23 AM EDTRespiratory Zzoi525311/07/2024 9:23 AM EDTOxygen Zuknkadecp15%11/07/2024 9:23 AM EDTInhaled Oxygen Concentration--Yomctv90.3 kg (174 lb 13.2 oz)11/07/2024 9:23 AM XARJmbrnv979.6 cm (5' 7.17 )11/07/2024 9:23 AM EDTBody Mass Index27.25 11/07/2024 9:23 AM EDT Plan of Treatment DateTypeDepartmentCare Team (Latest Contact Info)Uepohucixld02/15/2026 10:15 AM EDTAppointment Radiology Pet CT [address] [place] [address] Ct CN with contrast and lab11/06/2025 9:00 AM EDTVisit (SP) Office Hematology/Oncology [address] [place] [address] Memo Acevedo MD [address] [place] [address] 1 [address] follow up for ct and lab resultsHealth MaintenanceDue DateLast Done CommentsAnxiety Yvddtezhv60/09/1981Depression Nzotsdrai01/09/1981HIV Screening 1980Hepatitis C Cxqpmqqcj71/09/1981Lipid Qclpygvmi18/09/1998CT Vmxelswnfhvf26/09/2008Cologuard (FIT-DNA)11/25/20075751Twrucqaqaxw76/09/2008 Colorectal Cancer Vhisjbsnd95/09/2008Fecal Occult Blood11/25/2007Prostate Cancer Screening Sydcpaciog15/09/8702Cmtfwzaagoaek16/09/2008Pneumococcal Vaccine: 50+ (1 of 1 - PCV)2012Shingrix Vaccine (1 of 2)2012Medicare Annual Wellness Visit4DTaP,Tdap,Td Vaccine (2 - Td or Tdap)03/15/2024 03/15/2014Covid-19 Vaccine (3 - 2024- season)/11/2020, 12/30/2020 Influenza Vaccine (#1)2025Diabetes Kgguzlqfp63/, 02/11/2024, 10/26/2023, Additional history existsRSV Vaccine (1 - 1-dose 75+ series)2037 Procedures Procedure NamePriorityDate/TimeAssociated DiagnosisCommentsCOMPREHENSIVE METABOLIC EALBXXdmawgd47/10/2024 9:02 AM EDT Primary squamous cell carcinoma [...] 9:39 AM [facility] LABAlkaline Sjjbmiotnno2697 - 113 U/L 10/26/2023 9:39 AM [facility] LABAST9(L)14 - 40 U/L 10/26/2023 9:39 AM [facility] TQWEGG5027 - 54 U/L 10/26/2023 9:39 AM [facility] QCZKugzixa5512 - 99 mg/dL10/26/2023 9:39 AM [facility] LABComment: The [place] Diabetes Association (ADA) provides guidance for cutoff [...] Standards of Medical Care in Diabetes 2016, [place] Diabetes Association. Diabetes Care. 2016.39(Suppl 1). FTW931 - 24 mg/dL10/26/2023 9:39 AM [facility] LAB Creatinine1.010.73 - 1.22 mg/dL10/26/2023 9:39 AM [facility] YXAUktsoe956771 - 144 mmol/L10/26/2023 9:39 AM [facility] LABPotassium4.03.7 - 5.1 mmol/L10/26/2023 9:39 AM [facility] HYBVruxlrxs670(H)97 - 105 mmol/L10/26/2023 9:39 AM EDT [facility] VQJXT65503 - 30 mmol/L10/26/2023 9:39 AM EDT [facility] LABAnion Gap8(L)9 - 18 mmol/L10/26/2023 9:39 AM [facility] LABEstimated Glomerular Filtration Rate 85>=60 mL/min/1.73m 10/26/2023 9:39 AM EDTPOCAH[facility] LABComment:Estimated Glomerular Filtration Rate (eGFR) [...] VolumeCollection TimeReceived TimeBloodBLOOD SPECIMEN / UnknownVenipuncture / Gtncdbw6110/26/2023 9:02 AM EDT10/26/2023 9:11 AM EDT Narrative Authorizing ProviderResult TypeResult StatusVivenori Acevedo MDLABORATORYFinal ResultPerforming OrganizationAddressCity/State/ZIP CodePhone Number [facility] [address] [place] [address] from Last 3 Months or Most Recently Relevant to Health Maintenance Insurance Care Teams Team MemberRelationshipSpecialtyStart DateEnd Date Jax Hastings [address] [place] [phone] PCP - GeneralFamily Medicine11/20/18 Jax Hastings [address] [place] [phone] ReferringFamily Medicine11/20/18 Oziel Cadena MD [address] [facility] [address] [address] ReferringNeurology08/18/22
--- OUTSIDE RECORDS SUMMARY | 2025-04-09 11:51 | XMS_ITS | Encounter Summary ---
Author Organization [facility] Address [address] [place] [address] Care Team Providers Care Explosives Engineer Name Role Phone Jax Hastings DO Primary Care Provider [phone] Lilliam Cason MD Unavailable [phone] Encounter Details DateTypeDepartmentCare Team (Latest Contact Info)Hufhflntcmi40/20/2025Telephone [facility] [address] [place] [phone] Elisabet Pimentel MA Social History Tobacco UseTypesPacks/DayYears UsedDateSmoking Tobacco: Every DayCigarettes0.5 52.4Started: 1972Smokeless Tobacco: NeverAlcohol UseStandard Drinks/Week CommentsNever0 (1 standard drink = 0.6 oz pure alcohol)Humiliation, Afraid, Rape, and Kick questionnaireAnswerDate RecordedWithin the last year, have you been afraid of your partner or ex-partner?Patient unable to avihvq0103/24/2025 Emotionally AbusedNot on file03/24/2025Physically AbusedNot on file03/24/2025 Sexually AbusedNot on file03/24/2025PHQ-2AnswerDate RecordedPatient Health Questionnaire-2 Amowf490Sex and Gender InformationValueDate RecordedSex Assigned at AexgzXdmy12/29/2025 1:20 PM EDTLegal YoaMlkq9002/13/2025 9:31 AM EDT Gender ZeybnmgbPlfo66/29/2025 1:20 PM EDTSexual OrientationChoose not to oagyxgfh52/29/2025 1:20 PM EDTdocumented as of this encounter Miscellaneous Notes * Telephone Encounter - Ayah Ortega MA - 04/07/2025 12:06 PM EDT Clearance faxed to Dr. Harvey * Telephone Encounter - Elisabet Pimentel MA - 04/06/2025 3:19 PM EDT Patient called in and stated his blood thinner holding directions needs to come from his Vascular doctor in [place] - Dr. Harvey ph [phone] documented in this encounter Plan of Treatment Not on file documented as of this encounter Visit Diagnoses Not on filedocumented in this encounter Care Teams Team MemberRelationshipSpecialtyStart DateEnd Date Jax Hastings DO [address] [place] [phone] PCP - GeneralFamily Medicine02/13/25 Lilliam Cason MD [address] [place] [address] Referring PhysicianCardiovascular Gvckquu43/7/25documented as of this encounter
--- OUTSIDE RECORDS SUMMARY | 2025-04-09 11:51 | XMS_ITS | Clinical Summary ---
Author Organization [facility] Address [address] [place] [address] Care Team Providers Care Driller And Broacher Name Role Phone Jax Hastings DO Primary Care Provider [phone] Lilliam Cason MD Unavailable [phone] Allergies Active AllergyReactionsCriticalityNoted IztoMzkupqfzQallmukbikUssmu41/10/2019 Other Reaction(s): hives, Unknown Medications MedicationSigDispense QuantityRefillsLast [...] mg by mouth in the morning.06/08/2023ctive HYDROcodone-acetaminophen (Union) 7.5-325 mg tablet 03/04/2025tive hydrOXYzine HCL (Atarax) [...] twice a day if needed for MUSCLE GDNQXXANRD82/14/2025Active Active Problems ProblemNoted DateDiagnosed DateNerve root and plexus cdvrboyb27/05/2024AD (coronary artery disease)02/26/2024Senile qiesqkbosxop95/18/2024Generalized anxiety verlujof91/26/2024cute effusion of left ear10/16/2023cute left-sided thoracic back pain10/16/2023cute wnlhfapxu25/30/2024nxiety and depression 10/16/2023V bloc first oosfrk9210/16/2023rain mass10/16/2023urning sensation 10/16/2023ardiac vossdvlcrn85/30/9374Wbfhlbnhz20/30/2024yshidrotic eczema 10/16/2023Essential wobvormvwywz34/30/2024Heart block10/16/2023History of oral gvpltr2110/16/20237931Rixipzylzxdmms54/30/2024Osteoarthritis of hand10/16/2023AD (peripheral artery disease)10/16/2023aresthesia of left lower extremity 10/16/2023roductive cough10/16/2023entral pontine bfaecwmufwoi98/13/2024 Fxlipkwn29/13/2024igarette nicotine dependence with nicotine-induced disorder 4Acute pain of left zrxyovto59/05/2024ervical ehtekdxy84/16/2024 Radicular pain in left arm04/04/2023ervical xridawumfecck55/14/2023ervical paraspinal muscle spasm12/29/2022ervical stenosis of spinal canal12/29/2022ain in left arm12/29/2022reglaucoma, unspecified, right eye12/29/2022Skin sensation majxpwykepd64/14/2023Visual ovqdawfgxfd44/14/1380Sizknvzc22/14/2023ge-related nuclear cataract of right eye12/10/2022egeneration of cervical intervertebral disc12/10/2022Impairment of topitul0112/10/20222117Lnanjagj39/25/2023Lumbar dpmqwopipwyqk63/25/2023Malignant (primary) neoplasm, jqprqymrxhu92/25/2023 Poxmigi2912/10/2022Other abnormal findings on diagnostic imaging of central nervous ablvip2712/10/20220926Lxxvgoqybghf36/25/0362Egvunqwxej01/25/2023Secondary and unspecified malignant neoplasm of lymph node, htqepjuvieu13/25/2023Vertigo of central anyyyi4812/10/2022Neck pain11/23/2022ervico-occipital ttuotgtch23/08/2023 Brachial sznholygse14/08/2023lioma of brain10/13/2021Lung upxwsxu7510/13/2021 Primary squamous cell carcinoma of head and neck10/13/2021 Encounters DateTypeDepartmentCare CiexZspfokmsbgn81/20/2025Telephone [facility] [address] [place] [phone] Elisabet Pimentel MA 03/24/2025 10:30 AM EDTConsult [facility] [address] [place] [address] Isaias Ramirez MD 02/13/2025 - 02/13/2025 11:59 PM EDTHospital Encounter [facility] [address] [place] [address] Discharge Disposition: Home or Self Care (01)02/13/2025Telephone [facility] [address] [place] [address] Ayah Ortega MA from Last 3 Months [...] of your partner or ex-partner?Patient unable to oqsisc0103/24/2025Emotionally AbusedNot on file03/24/2025Physically AbusedNot on file03/24/2025Sexually AbusedNot on file03/24/2025PHQ-2AnswerDate RecordedPatient Health Questionnaire-2 Amzcy053Sex and Gender InformationValueDate RecordedSex Assigned at DlkzjVvzj32/29/2025 1:20 PM EDT Legal UxdPiiq2602/13/2025 9:31 AM EDTGender HajfxbehRgsq31/29/2025 1:20 PM EDT Sexual OrientationChoose not to sfnwtend04/29/2025 1:20 PM EDT Last Filed Vital Signs Vital SignReadingTime TakenCommentsBlood Nvvbuxyv293/7003/24/2025 10:42 AM EDT Bfbdd812203/24/2025 10:42 AM SIBNtoxjoudcbn34.9 ??C (98.4 ??F)03/24/2025 10:42 AM EDTRespiratory Rate--Oxygen Saturation--Inhaled Oxygen Concentration--Sodohi19.6 kg (160 lb)03/24/2025 10:42 AM NXWTzesxq363.7 cm (5' 8 )03/24/2025 10:42 AM EDT Body Mass Index24.331 10:42 AM EDT Plan of Treatment Health MaintenanceDue DateLast DoneCommentsCT Ccgtlgqeomqh06/09/1963Colonoscopy 1962Colorectal Cancer Kylayviig81/09/1963FIT-DNA1962FIT1962 FOBT1962Medicare Annual Wellness (AWV)1960 5949Echiilqlsisma75/09/1963 Pneumococcal Vaccine: Pediatrics (0 to 5 Years) and At-Risk Patients (6 to 64 Years) (1 of 2 - PCV)1981Zoster Vaccines (1 of 2)2012dult Tetanus COVID-19 Vaccine (3 - 2024- season)/11/2020, 12/30/2020Influenza Vaccine (#1)2025Depression Bmvwvayxx13/07/2026 03/24/2025HIB VaccinesAged OutNo longer eligible based on [...] Procedures Procedure NamePriorityDate/TimeAssociated DiagnosisCommentsMR TRANSFER OF OUTSIDE RAFZXVucadtm32/29/2025 12:00 AM EDT from Last 3 Months Results * MR transfer of outside films (02/13/2025 12:00 AM EDT)Specimen (Source) Anatomical Location / LateralityCollection Method / VolumeCollection Time Received Time Narrative IMAGING - 02/13/2025 10:59 AM EDT This order has been auto-finalized and does not contain a result. Authorizing ProviderResult TypeResult StatusAlastair Thornton MDIMG MRI PROCEDURES Final ResultPerforming OrganizationAddressCity/State/ZIP CodePhone Number IMAGING from Last 3 Months Insurance MemberSubscriberPlan / Payer (Effective 2025-Present)Name:Jovani Kong Member ID:[id number] Relation to Subscriber:SelfName:Jovani Kong Subscriber ID:[id number] Payer ID:[id number] Group ID:Not on file Type:Medicare Address: [facility] [place] [id number] Care Teams Team MemberRelationshipSpecialtyStart DateEnd Date Jax Hastings DO [address] [place] [phone] PCP - GeneralFamily Medicine02/13/25 Lilliam Cason MD [address] [place] [address] Referring PhysicianCardiovascular Lzzchcj44/7/25
--- NOTE | 2025-04-09 11:54 | XR_ITS ---
[address] [address] Patient Name: SHANTEL MELENDEZ MRN: [id number] date: 1960 Sex: M Assigned Patient Location: [facility] Current Patient Location: [facility] Accession/Order Number: [id number] Exam Date: 04/09/2025 12:10 Report Date: 04/09/2025 16:49 At the request of: BABATUNDE YOST NP Procedure: XR lumbar spine 6V w bending 7 views lumbar spine INDICATION: Lumbar stenosis and spondylosis COMPARISON: None FINDINGS: Mild levocurvature. Mild multilevel intervertebral space narrowing with endplate osteophytosis. There is moderate facet arthropathy L3-S1. No pathologic instability on the flexion or extension images. No definite spondylolysis or spondylolisthesis identified. XR/XR lumbar spine 6V w bending IMPRESSION: Multilevel degenerative changes predominantly involving the posterior elements. No pathologic instability. Impression dictated by: Gee Hutchins M.D. 04/09/2025 4:49 PM Dictation Location: [place] [address] Electronically authenticated by: [id number] Y Date: 04/09/2025 16:49
--- OUTSIDE RECORDS SUMMARY | 2025-04-09 11:54 | XMS_ITS | CCD ---
Author Organization [facility] CliniSyfl Care Team Providers [employer] Name Role Phone Griselda Hastings Primary Care Provider Griselda Hastings Attending Provider [phone] Griselda Hastings Unavailable Unavailable Unavailable Griselda [...] Provider DO Griselda Hastings Primary Care Provider [phone] MD Oziel Cadena Attending Provider Trish Carney Unavailable Griselda Hastings Primary Care Provider Darling Griselda Wright Unavailable Tammi NORRIS, Oziel Ruiz Unavailable FLORES CAT Attending Unavailable FLORES CAT Admitting Unavailable KUNS, GRISELDA WRIGHT Primary Care Unavailable Kuns, DO Griselda Primary Care Provider [phone] Kuns, DO Griselda Attending Provider [phone] MD Lima Joseph Attending Provider Dr. BRET HDEZ Attending Unavailable PCP, OTHER Primary Care Unavailable PCP, Other Primary Care Physician Kuns, DO Griselda Primary Care Provider [phone] BAILEY Gaytan Emergency Provider [phone] quentin, DO Rohit Mullins Emergency Provider Darling, DO Camara Attending Provider Lilliam Cason Unavailable Andreas, DO Griselda Primary Care Provider [phone] BAILEY Gaytan Emergency Provider quentin, DO Rohit Mullins Emergency Provider Darling, DO Griselda Attending Provider MD Lilliam Cason Attending Provider [phone] Ruddy Harvey Unavailable BAILEY Mota Attending Provider [...] Care Provider MD Ruddy Harvey Attending Provider Darling DOGriselda R Primary Care Provider Andreas DO, Griselda R Primary Care Provider [phone] Stiven NORRIS, Helder Jarrett Unavailable AndreasDO Camara Attending Provider Griselda Hastings Primary Care Provider Oziel Cadena MD Unavailable [phone] Andreas DO, Griselda R Primary Care Provider [phone] Milks PA-C, Solomon A Unavailable Milks PA-C, [...] Provider Griselda Hastings DO Primary Care Provider [phone] Manisha Negron APRN Emergency Provider Andreas DOGriselda Other Provider Manisha Negron APRN Attending Provider [phone] Milks PA-C, Solomon Nae Attending Provider Griselda [...] Attending Provider Kuns , Griselda Attending Provider [phone] HARRIS, XIAOFEI Referring Unavailable KUNS, GRISELDA [...] Attending Provider Kuns DO, Griselda Attending Provider [phone] Kuns DO, Griselda Primary Care Provider Solomon Montez APRN Attending Provider Roxy NORRIS, Andri Attending Provider Sofia Arias DO Attending Provider Kuns DO, Griselda Primary Care Provider [phone] Kuns DO, Griselda Attending Provider Manisha Negron [...] TypeDate of OnsetReaction(s) FacilityCephalosporins (antibiotic) (1 source)CephalexinDrug Qiqoqup75-16-7335VlwbrDyppgnwsjPaulding [facility] Hospital (20 sources)Cephalexin; Translations: [CEPHALEXIN]Drug Acdqefa10-96-0869I[facility]g [facility] (20 sources)Cephalexin; Translations: [Keflex]Drug [facility]ergyJackson [facility] Other (1 source)Cephalexin; Translations: [Keflex]Drug AllergyHiHollywood [facility] [place] (17 sources)Keflet; Translations: [KEFLET]Propensity to adverse reactions 19-38-0435ZaipgOuzdrywuzcTri[facility] (4 sources)varenicline; Translations: [varenicline]Drug Gewpmgk32-25-8467 [facility] (1 source)ALLERGIES NOT ON FILE; Translations: [ALLERGIES NOT ON FILE]Propensity to adverse reactions (disorder)[facility] NEGATED: Highlighted row has been ruled out! (1 source)natural latex rubber; Translations: [LATEX, NATURAL RUBBER]Drug allergy (disorder)[facility] EnterpriseNEGATED: Highlighted row has been ruled out! (1 source)No IV Contrast Allergy.; Translations: [IV Dye, Iodine Containing]Drug allergy (disorder)[facility] [place] Medications Current Medications MedicationDrug Class(es)DatesSig (Normalized)Sig (Original)acetaminophen 325 mg oral tablet (1 source)Start: 13-55-5774gbxl 1 tablet by mouth every six qgurp609 mg, oral, Every 6 hours, First dose on Sun04/09/24 at 1915, Phase II/On Unit, If ordered PRN for pain, nurse is permitted to administer this medication for higher pain scores based on patient preference? Yesacetaminophen 325 mg / HYDROcodone bitartrate 7.5 mg oral tablet (20 sources)Opioid AgonistStart: 65-95-7661lusu 1 tablet by mouth twice daily as needed for painHydrocodone-Acetaminophen 7.5-325 mg tablet Active 1 TAB PO Twice daily as needed for pain October 06, 2024 12:00am Complies with drug therapy Start: 04-01-2024 End: 51-47-0132xzbq 1 tablet by mouth twice dailyHydrocodone-Acetaminophen 7.5- 300 mg tablet Discontinued 1 TAB PO Twice daily April 01, 2024 12:00am April 28, 2024 10:44amStart: 74-07-7263SJZKFtjgoiy-acetaminophen ([place]) 5- 325 MG tablet 10/10/2023 ActiveStart: 09-05-2023 End: 50-23-9030mlmg 1 tablet by mouth every eight hours as neededHydrocodone- Acetaminophen 5-325 mg tablet Discontinued TAB PO Every 8 hours as needed September 05, 2023 12:00am April 01, 2024 11:01amStart: 48-61-9448xxkv 1 tablet by mouth once daily as needed for painHYDROcodone-acetaminophen ([place]) 5-325 MG tablet take 1 tablet orally daily NEEDED FOR PAIN MUST LAST 30 DAYS 10/10/2023 ActiveStart: 12-10-2017 End: 21-45-1870ddfd 1 tablet by mouth every four hoursHydrocodone-Acetaminophen ([place]) 5-325 mg tablet Discontinued 1 TAB PO Q4H December 10, 2017 April 29, 2018 3:12pm End: 23-20-6046jmet 1.5 tablets by mouth twice daily as needed for pain HYDROcodone-acetaminophen ([place]) 5-325 mg tablet Take 1.5 tablets by mouth 2 times a day as neededfor severe pain (7 - 10). 04/10/2024 Discontinued (Stop Taking at Discharge)acetaminophen 325 mg / oxyCODONE hydrochloride 5 mg oral tablet (20 sources)Opioid AgonistStart: 04-30-2024 End: 08-65-9086hjae 1 tablet by mouth every six hours for painoxyCODONE- acetaminophen (Percocet) 5-325 mg tablet Indications: Acute postoperative pain Take 1 tablet by mouth every 6 hours if needed for severe pain (7 - 10) (pain) for up to 7 days. 28 tablet 04/30/2024 05/07/2024 ActiveStart: 04-28-2024 End: 51-29-2868lleo 1 tablet by mouth every eight hours as neededOxycodone- Acetaminophen (Percocet) 5-325 mg tablet Discontinued 1 TAB PO Every 8 hours as needed April 28, 2024 1:00am September 20, 2024 11:05amStart: 04-10-2024 End: 63-37-3546jrht 1 tablet by mouth every six hours for painoxyCODONE- acetaminophen (Percocet) 5-325 mg tablet Indications: Cervical radiculopathy Take 1 tablet by mouth every 6 hours if needed for severe pain (7 - 10) (pain) for up to 7 days. 28 tablet 04/10/2024 04/17/2024 ActiveStart: 04-17-2022 End: 05-27-2606rqbr 1 tablet by mouth every six hours as needed for pain Oxycodone-Acetaminophen (Percocet) 5-325 mg tablet Discontinued 1 - 2 TAB PO Every 6 hours as needed for pain 20 April 17, 2022 July 17, 2022 9:01am1 ml alirocumab 75 mg/ml auto-injector (4 sources)PCSK9 InhibitorStart: 87-94-3314thvgfh 75 mg by subcutaneous injection every other weekAlirocumab (Praluent Pen) 75 mg/mL pen injector Active 75 MG SUBCUT Q14D 7 November 03, 2024 12:00am Complies with drug therapy Alirocumab (Praluent Pen) 75 mg/mL pen injector (3 sources)Start: 25-77-0499birdrm 75 mg by subcutaneous injection every other weekAlirocumab (Praluent Pen) 75 mg/mL pen injector Active 75 MG SUBCUT Q14D 7 November 03, 2024 12:00amaspirin 81 mg delayed release oral tablet (20 sources)Platelet Aggregation Inhibitor, Nonsteroidal Anti-inflammatory Drug Start: 04-18-6098tncn 1 tablet by mouth once dailyaspirin 81 mg EC tablet Indications: Cervical radiculopathy Take 1 tablet (81 mg) by mouth once daily. Do not fill before April 14, 2024. 04/14/2024 ActiveStart: 26-25-2837njwa 1 tablet by mouth once dailyaspirin 81 mg EC tablet Indications: Cervical radiculopathy Take 1 tablet (81 mg) by mouth once daily. Do not fill before April 14, 2024. 04/14/2024 ActiveStart: 08-02-2023 End: 83-96-0384wqmv 1 tablet by mouth once dailyAspirin 81 mg tablet,delayed release (DR/EC) Active 81 MG PO Daily August 02, 2023 1:00am Complies with drug therapyStart: 07-17-2022 End: 96-05-0899vhlr 1 capsule by mouth once dailyAspirin 81 [...] mg oral tablet (2 sources)gamma-Aminobutyric Acid-ergic AgonistStart: 07-11-2218shjb 1 tablet by mouth three times daily as neededbaclofen (Lioresal) 10 MG tablet Take 1 tablet 3 times a day by oral route as needed for 15 days. Active bisacodyl 5 mg delayed release oral tablet (1 source)Stimulant LaxativeStart: 50-32-5318bpbj 1 tablet by mouth every twenty-four hours as neededbusPIRone hydrochloride 10 mg oral tablet (20 sources)Start: 93-51-0462tthu 5 mg by mouth twice daily5 mg, oral, 2 times daily, First dose on Sun04/09/24 at 2100, Phase II/On UnitStart: 01-31-2024 End: 72-16-1746Hnohtgkmt 5 mg tablet Discontinued 5 MG PO January 31, 2024 12:00am July 03, 2024 10:50amStart: 12-31-2023 End: 92-87-6330uaug 1 tablet by mouth once daily in [...] meq/ml injectable solution (2 sources)Start: 04-09-2024 End: 10-02-6768Qwmrx: 04-09-2024 End: 13-89-2340jwmv 20 mL intravenously every hour20 mL/hr, intravenous, Continuous, Starting on Sun04/09/24 at 1215, Preprocedurechlorhexidine gluconate 1.2 mg/ml mouthwash (10 sources)Start: 02-11-2024 End: 50-56-7118zblhqgtvzfagy (Hibiclens) 4 % external liquid Indications: Cervical radiculopathy , Senile osteoporosis Use as directed daily preoperatively 473 mL 02/11/2024 04/10/2024 Discontinued (Stop Taking at D ischarge)Start: 02-11-2024 End: 25-57-8071xmjekkqrieuxw (Peridex) 0.12 % solution Indications: Cervical radiculopathy , Senile osteoporosis Swish and spit with 15ml of solution the night before and morning of surgery. Do not swallow. 15 mL 02/11/2024 04/10/2024 Discontinued (Stop Taking at Discharge)citalopram 20 mg oral tablet (20 sources)Serotonin Reuptake InhibitorStart: 39-57-7712aphp 1 tablet by mouth once dailyCitalopram 20 mg tablet Active 20 MG PO Daily February 19, 2025 11:51am Complies with drug therapyStart: 12-03-2023 End: 93-77-8204jczw 1 tablet by mouth once dailyCitalopram (Celexa) 10 mg tablet Discontinued 10 MG PO Daily April 01, 2024 11:02am September 29, 2024 3:11pmStart: 12-26-2021 End: 91-10-3817qhpq 1 tablet by mouth once dailyCitalopram 20 mg tablet Discontinued 20 MG PO Daily August 02, 2023 1:00am December 03, 2023 10:48am FreeTextSi tablet Orally Once a day; Note: Source Status: Continue; Provider: Darling Camara RStart: 95-49-8678fzuv 1 tablet by mouth once daily citalopram (CELEXA) 40 mg tablet Take 40 mg by mouth once daily. 0 10/22/2018 ActiveStart: 12-10-2017 End: 54-02-5678Pfdahfuyqv 40 mg tablet Discontinued 20 MG PO Daily December 10, 2017 12:00am April 29, 2018 3:12pmStart: 12-10-2017 End: 50-29-0834vqtt 20 mg by mouth once dailyCitalopram Discontinued 20 MG PO Daily December 10, 2017 12:00am April 29, 2018 3:12pmtake 0.5 tablet by mouth once dailycitalopram (CeleXA) 20 mg tablet Take 0.5 tablets (10 mg) by mouth once daily. ActiveComment on above:Take 40 mg by mouth once daily.clopidogrel 75 mg oral tablet (20 sources)P2Y12 Platelet InhibitorStart: 49-11-6334gdup 1 tablet by mouth once dailyClopidogrel 75 mg tablet Active 75 MG PO Daily February 19, 2025 12:00am Complies with drug therapyStart: 70-13-1297mfqgmpyfkhz (Plavix) 75 mg tablet Indications: Cervical radiculopathy Take 1 tablet (75 mg) by mouth once daily. Do not fill before April 23, 2024. 04/23/2024 ActiveStart: 04-23-2024 clopidogrel (Plavix) 75 mg tablet Indications: Cervical radiculopathy Take 1 tablet (75 mg) by mouth once daily. Do not fill before April 23, 2024. 04/23/2024 ActiveStart: 04-14-2024 End: 14-71-8364gnct 1 tablet by mouth once dailyclopidogrel (Plavix) 75 mg tablet Indications: Cervical radiculopathy Take 1 tablet (75 mg) by mouth once daily. Do not fill before April 14, 2024. 04/14/2024 04/10/2024 Discontinued Start: 05-07-2023 End: 48-21-8193nakx 1 tablet by mouth once dailyClopidogrel (Plavix) 75 mg tablet Discontinued 75 MG PO Daily August 02, 2023 1:00am January 23, 2024 2:33pm FreeTextSi tablet Orally Once a day; Note: Source Status: Taking; Provider: Darling Camara ( )cyclobenzaprine hydrochloride 10 mg oral tablet (20 sources)Muscle RelaxantStart: 70-56-9392xzir 1 tablet by mouth three times daily as needed for muscle spasmscyclobenzaprine (Flexeril) 10 mg tablet Indications: muscle spasm Take 1 tablet (10 mg) by mouth 3 times a day as needed for muscle spasms for up to 7 days. 21 tablet 06/03/2024 ActiveStart: 04-30-2024 End: 63-93-7442xteu 1 tablet by mouth every eight hours for muscle spasms cyclobenzaprine (Flexeril) 10 mg tablet Indications: Muscle spasms of neck Take 1 tablet (10 mg) bymouth every 8 hours if needed for muscle spasms. 90 tablet 04/30/2024 ActiveStart: 04-09-2024 End: 80-57-5963ykue 1 tablet by mouth three times daily as needed for muscle spasmscyclobenzaprine (Flexeril) 10 mg tablet Indications: muscle spasm Take 1 tablet (10 mg) by mouth 3 times a day as needed for muscle spasms for up to 7 days. 21 tablet 04/17/2024 ActiveStart: 03-21-2023 End: 41-51-7161bdkq 1 tablet by mouth three times daily as needed for muscle spasmsCyclobenzaprine 10 mg tablet Discontinued 10 MG PO Three times daily as needed for Muscle Spasm March 21, 2023 12:00am May 07, 2023 9:22am 0.4 ml enoxaparin sodium 100 mg/ml prefilled syringe (1 source)Low Molecular Weight HeparinStart: 58-18-3612hfejik 40 mg by subcutaneous injection every twenty-four [...] 0.2 mg/ml prefilled syringe (3 sources)Opioid AgonistStart: 29-46-5491cytk 0.2 mg intravenously every four hours as [...] with radiology test) (20 sources)Start: 11-02-2023 End: 92-35-2716tg contrast (will be provided with radiology test) [...] Each 0 11/02/2023 11/03/2023 ActiveStart: 11-02-2023 End: 52-86-3581ycwslg 1 dose intravenously once, then inject 1 [...] Each 0 11/02/2023 11/02/2023 ExpiredStart: 09-20-2022 End: 32-07-9955oehhlw 1 dose intravenously onceiv contrast (will be [...] Each 0 09/20/2022 09/21/2022 ActiveStart: 10-30-2021 End: 08-31-5895wmguxt 1 dose intravenously once, then inject 1 [...] Each 0 10/30/2021 10/30/2021 ActiveStart: 10-30-2021 End: 35-66-5060fi contrast (will be provided with radiology test) [...] 1 Each 0 10/30/2021 10/31/2021 Active Start: 69-71-3869hy contrast (will be provided with radiology test) [...] administration guidelines link. 1 Each 03/15/2020 ActiveStart: 68-26-6012cm contrast (will be provided with radiology test) [...] day ActiveMultivitamin (Multiple Vitamins) tablet (20 sources)Start: 89-04-8381jzpy 1 tablet by mouth once dailyStart: 08-02-2023 take 1 tablet by mouth once dailyMultivitamin (Multiple Vitamins) tablet Active 1 TAB PO Daily August 02, 2023 1:00am Complies with drug therapyStart: 53-56-6931fgcz 1 tablet by mouth once dailyMultivitamin (Multiple Vitamins) tablet Active 1 TAB PO Daily August 02, 2023 1:00amStart: 49-36-7953qhak 1 tablet by mouth once dailyMultivitamin (Multiple [...] by mouth once daily.Naloxone (1 source)Opioid AntagonistStart: 49-51-0205iolGKGTHL hydrochloride 10 mg oral tablet (3 sources)Opioid AgonistStart: 36-44-0783ezpg 1 tablet by mouth every four hours as neededStart: 47-35-4358jdty 1 tablet by mouth every four hours as neededStart: 63-26-5257enau 1 tablet by mouth every four hours as iirirl92 mg, oral, Every 4 hours PRN, pain severe (7-10), first line, Starting on Sun04/09/24 at 1857, Phase II/On Unit, If ordered PRN for pain, nurse is permitted to administer this medication for higher pain scores based on patient preference? Yespantoprazole 40 mg delayed release oral tablet (14 sources)Proton Pump InhibitorStart: 62-19-6686oiaa 1 tablet by mouth twice dailyPantoprazole 40 mg tablet,delayed release (DR/EC) Active 40 MG PO Twice daily 60 30 November 17, 2024 2:10pm Complies with drug therapyStart: 11-05-2024 End: 17-66-5837pine 1 tablet by mouth once daily at bedtimePantoprazole 40 mg tablet,delayed release (DR/EC) Discontinued 40 MG PO Daily at bedtime 56 56 November 05, 2024 12:00am November 17, 2024 2:16pmpolyethylene glycol 3350 47107 mg powder for oral solution (1 source)Osmotic LaxativeStart: g, oral, 2 times daily, First dose on Sun04/09/24 at 2100, Phase II/On Unit, Bowel Regimen - for prevention of constipation.tiZANidine 4 mg oral capsule (20 sources)Central alpha-2 Adrenergic AgonistStart: 68-02-0899aeus 1 capsule by mouth twice daily as neededTizanidine 4 mg capsule Active 4 MG PO Twice daily as needed February 19, 2025 12:00am Complies with drug therapyStart: 08-29-2022 End: 61-85-3309qcqw 1 tablet by mouth once daily at bedtimeTizanidine (Zanaflex) 4 mg tablet Discontinued 4 MG PO Daily at bedtime August 02, 2023 1:00am [facility] 2023 10:58am FreeTextSi tablet as needed Orally at bedtime; Note: Source Status: Taking; Provider: Satish Howardtart: 04-17-2022 End: 10-49-0175higk 1 capsule by mouth twice daily as neededTizanidine 4 mg capsule Discontinued 4 MG PO Twice daily as needed for muscle spasticity 2021 12:00am July 17, 2022 9:02amStart: 04-06-2022 End: 22-09-4454xzrv 2 tablets by mouth at bedtimeTizanidine 4 mg tablet Discontinued 8 MG PO Bedtime April 06, 2022 12:00am August 02, 2023 1 :50pmStart: 04-06-2022 End: 20-26-2140aeex 8 mg by mouth at bedtimeTizanidine Discontinued 8 MG PO Bedtime April 06, 2022 12:00am August 02, 2023 1:50pmStart: 04-06-2022 take 1 tablet by mouth every twenty-four hours as neededtiZANidine (ZANAFLEX) 4 mg tablet Take 4 mg by mouth at bedtime as needed. 0 08/29/2022 ActiveStart: 19-79-7117kpXDVsyysy HCl - 4 MG Oral Tablet Quantity: [...] Central Nervous System Stimulant, MethylxanthineStart: 08-31-2022 End: 50-89-2902uhog 1 tablet by mouth every four to [...] oral tablet (20 sources)Opioid AgonistStart: 05-07-2023 End: 28-79-7090wmyd 1 tablet by mouth twice daily as needed for pain Acetaminophen-Codeine 300-30 mg tablet Discontinued 1 TAB PO Twice daily as needed for Pain May 07, 2023 1:00am August 02, 2023 1:44pm acetaZOLAMIDE 250 mg oral tablet (20 sources)Carbonic Anhydrase InhibitorStart: 08-31-2022 End: 13-81-4876qugu 1 tablet by mouth once daily in the morning, then take 2 tablets by mouth at bedtimeacetaZOLAMIDE (DIAMOX) 250 mg tablet take 1 tablet by mouth every morning and AFTERNOON and 2 at bedtime as directed 0 08/31/2022 Active End: 70-75-4818abah 1 tablet by mouth every twenty-four hoursacetaZOLAMIDE (Diamox) 250 mg tablet Take by mouth once every 24 hours. 04/10/2024 Discontinued (Therapy completed)take 1 tablet by mouth every twelve hours acetaZOLAMIDE 125 MG 1 tablet Orally Twice a day ActiveComment on above:take 1 tablet by mouth every morning and AFTERNOON and 2 at bedtime as directed [id number] 200 actuat albuterol 0.09 mg/actuat metered dose inhaler (20 sources)beta2-Adrenergic AgonistStart: 09-20-2024 End: 46-00-8958Qtbvyaoup Sulfate 90 mcg/actuation HFA aerosol inhaler Discontinued 1 INH INHALATION Every 4 hours as needed for shortness of breath September 20, 2024 12:00am October 06, 2024 2:05pmStart: 07-21-6390xwrd 2 puff(s) by inhalation every four hoursalbuterol HFA 90 mcg/act inhaler Inhale 2 puffs every 4 (four) hours if needed 04/10/2024 ActiveStart: 37-71-0926egjl 2 puff(s) by inhalation every four hours for wheezingalbuterol 90 mcg/actuation inhaler Indications: Cervical radiculopathy Inhale 2 puffs every 4 hoursif needed for wheezing or shortness of breath. 18 g 11 04/10/2024 ActiveStart: 04-09-2024 Start: 08-02-2023 End: 52-95-8056fmkk 1 puff(s) by inhalation every four hours as neededAlbuterol Sulfate 90 mcg/actuation HFA aerosol inhaler Discontinued 1 PUFF INHALATION Every 4 hoursFebr2023 1:00am August 02, 2023 1:45pm FreeTextSi puff as needed Inhalation every 4 hrs; Note: Source Status: Start; Refills: 1; Provider: Darling Camara RStart: 07-02-2023 End: 16-40-4064xhah 2 puff(s) by inhalation every four hoursalbuterol 90 mcg/actuation inhaler Inhale 2 puffs every 4 hours if needed. 07/02/2023 04/10/2024 Discontinued (Therapy completed)Start: 48-07-5430cbxb 2 puff(s) by inhalation every four hoursalbuterol HFA 90 mcg/act inhaler Inhale 2 puffs every 4 (four) hours if needed 0 07/02/2023 ActiveStart: 95-64-3832sfym 1 puff(s) by inhalation every four hours as neededAlbuterol Sulfate HFA 108 (90 Base) MCG/ACT 1 puff as needed Inhalation every 4 hrs Jun, ActiveALPRAZolam 0.25 mg oral tablet (20 sources)BenzodiazepineStart: 01-31-2024 End: 04-61-9605nglk 1 tablet by mouth once dailyAlprazolam (Xanax) 0.25 mg tablet Discontinued 0.25 MG PO Daily January 31, 2024 12:00am April 01, 2024 11:01amStart: 87-13-3980mefy 1 tablet by mouth once daily as needed ALPRAZolam (XANAX) 0.25 mg tablet Take 0.25 mg by mouth once daily as needed. 0 09/12/2021 Activetake 1 tablet by mouth every twelve hoursALPRAZolam 0.25 MG 1 tablet Orally Twice a day prn ActiveComment on above:Take 0.25 mg by mouth once daily as needed.amLODIPine 10 mg oral tablet (20 sources)Dihydropyridine Calcium Channel BlockerStart: 02-01-2024 End: 93-90-9165mrjk 1 tablet by mouth once dailyAmlodipine 10 mg tablet Discontinued 10 MG PO Daily April 01, 2024 11:02am September 29, 2024 3:11pmStart: 11-29-2023 End: 88-45-3846zivm 1 tablet by mouth once dailyAmlodipine 10 mg tablet Discontinued 0 .ROUTE .COMPLEX November 29, 2023 12:15pm February 01, 2024 11:05am take 1 tablet orally dailyStart: 11-29-2023 End: 28-83-3950rfdf 1 tablet by mouth once dailyAmlodipine Discontinued 0 .ROUTE .COMPLEX November 29, 2023 12:15pm February 01, 2024 11:05am take1 tablet orally dailyStart: 29-04-4949xvch 1 tablet by mouth once dailyAmlodipine Active 0 .ROUTE .COMPLEX November 29, 2023 12:15pm take 1 tablet orally dailyStart: 09-05-2023 End: 81-76-6571srfj 1 tablet by mouth once dailyAmlodipine 10 mg tablet Discontinued 10 MG PO Daily September 05, 2023 12:00am November 29, 2023 1 2:15pmStart: 03-15-2023 End: 33-04-4676xerw 1 tablet by mouth once dailyAmlodipine 5 mg tablet Discontinued 5 MG PO Daily August 02, 2023 1:00am September 05, 2023 2:21pm FreeTextSi tablet Orally Once a day; Note: Source Status: Continue; Provider: Darling Camara Ramoxicillin 875 mg / clavulanate 125 mg oral tablet (20 sources)Penicillin-class AntibacterialStart: 09-20-2024 End: 73-26-1660hacx 1 tablet by mouth twice dailyAmoxicillin-Pot Clavulanate 875-125 mg tablet Discontinued 1 TAB PO Twice daily September 20, 2024 12:00am October 06, 2024 2:05pmStart: 02-26-2023 End: 00-73-7385gasf 1 tablet by mouth twice dailyAmoxicillin-Pot Clavulanate 875-125 mg tablet Discontinued 1 TAB PO Twice daily February 26, 2023 12:00am May 07, 2023 9:82ofOrb6453-Nxg Mbv-Qopg-Fxm-Asb-C (10 sources)Osmotic Laxative, Vitamin CStart: 10-10-2024 End: 35-11-2527Wka7479-Sod Zwe-Pwzr-Puy-Asb-C (Plenvu) 140-9-5.2 gram powder in packet, sequential Discontinued 0 PO .COMPLEX 3 October 10, 2024 12:00am October 24, 2024 11:48am POStart: 03-35-1195Ffs0125-Sod Yic-Ukru-Kqu-Asb-C (Plenvu) 140-9-5.2 gram powder in packet, sequential Active 0 PO .COMPLEX 3 October 10, 2024 12:00am POatorvastatin 10 mg oral tablet (20 sources)HMG-CoA Reductase InhibitorStart: 51-21-6619abhv 1 tablet by mouth once dailyatorvastatin (LIPITOR) 10 mg tablet Take 10 mg by mouth once daily. 0 09/28/2021 ActiveStart: 52-16-7129Uynakqrssood Calcium 10 MG Oral Tablet Quantity: 90 Refills: 0 Ordered: 28-Sep-2021 DO Start : 28-Sep-2021 Active Comment on above:Take 10 mg by mouth once daily.azithromycin 250 mg oral tablet (20 sources)Macrolide AntimicrobialStart: 11-19-2024 End: 14-62-0116Vhwebqtipphv (Zithromax Z-Slim) 250 mg tablet Discontinued 0 PO .COMPLEX November 19, 2024 12:00am February 19, 2025 11:11am For 250 mg dose pack: take 500 mg today (day 1), then 250 mg for 4 days (days 2-5) POStart: 09-20-2024 End: 23-99-0677vpdk 2 tablets by mouth once dailyAzithromycin 250 mg tablet Discontinued 250 MG PO Daily 09 19September 20, 2024 12:00am October 06, 2024 2:06pm start on day 2 of therapyStart: 36-36-7961Moyzsgkvr Z-Slim 250 MG as directed Orally as directed 1 pack Jun, ActiveStart: 77-83-0409Sthsbdawx Z-Slim 250 MG as directed Orally Nov, ActiveStart: 11-02-2022 End: 31-45-0505sqtngoxfdrbo (ZITHROMAX) 250 mg tablet Take by mouth as directed. TAKE 2 TABLETS BY MOUTH TODAY, THEN TAKE 1 TABLET DAILY FOR 4 DAYS 11/02/2022 11/02/2023 Discontinued (Discontinued by Patient)Start: 26-86-1950Uidjkeamh Z- Slim 250 MG as directed Orally Jul, ActiveStart: 20-79-8192Ccutzmivg Z- Slim 250 MG as directed Orally Feb, ActiveStart: 70-59-1124Jabkxqnwz Z- Slim 250 MG 2 tablet on the first day, then 1 tablet daily for 4 days Orally Once a day for 5 day(s) Nov, Not-TakingStart: 27-48-4903Phwyolcxy Z-Slim 250 MG 2 tablet on the first day, then 1 tablet daily for 4 days Orally Once a day 1 3 Jun, 2021 Activebetamethasone 0.5 mg/ml / clotrimazole 10 mg/ml topical cream (20 sources)Azole Antifungal, CorticosteroidStart: 03-08-2023 End: 10-91-0251Nuktqpxxpsda-Betamethasone 1-0.05 % cream Discontinued 1 APPLIC TOPICAL Twice daily August 02, 2023 1:00am August 02, 2023 1:47pm FreeTextSi application Externally Twice a day; Note: Source Status: Not- TakingundefinedPRN; Refills: 1; Qty: 45 grams; Provider: Darling Driver onabotulinumtoxina 200 unt injection (16 sources)Acetylcholine Release InhibitorStart: 07-20-2023 End: 38-91-6629Nqxcl 200u vial IJ Soln 200 units injection Indications: Spasmodic Torticollis Inject 400 units into neck muscles every 90 days 2 each 3 07/20/2023 01/08/2025 Discontinuedbrexpiprazole 1 mg oral tablet (20 sources)Atypical AntipsychoticStart: 08-02-2023 End: 62-02-0139ezxi 0.5 mg by mouth once dailyBrexpiprazole Discontinued 0.5 MG PO Daily August 02, 2023 2:09pm October 18, 2023 8:55amStart: 08-02-2023 End: 34-76-7042sfpn 1 tablet by mouth once dailyBrexpiprazole 1 mg tablet Discontinued 0.5 MG PO Daily August 02, 2023 2:09pm October 18, 2023 8:55am Start: 83-45-4639wvic 1 tablet by mouth every twenty-four hoursRexulti 1 MG 1 tablet Orally Once a day samples provided May, ActiveStart: 05-31-2023 take 1 tablet by mouth every twenty-four hoursRexulti 0.5 MG 1 tablet Orally Once a day for 7 days samples provided May, Activebupivacaine hydrochloride 5 mg/ml injectable solution (18 sources)Amide Local AnestheticStart: 03-24-2025 End: 45-51-4198mogzhhvfsoe (Marcaine) 0.5 % injection 5 mgStart: 03-24-2025 End: 52-74-0164qfxbofnbdui (Marcaine) 0.5 % injection 5 mgStart: 03-24-2025 End: mg, Injection, Once, On Sun03/24/25 at 1415, For 1 doseStart: 03-24-2025 End: mg, Injection, Once, On Sun03/24/25 at 1415, For 1 doseStart: 02-17-2025 End: 75-69-8601thlpbvbrrrn (Marcaine) 0.5 % injection 5 mgStart: 02-17-2025 End: mg, Injection, Once, On Sun02/17/25 at 1345, For 1 doseStart: 12-30-2024 End: 27-65-8422egdzhcumiej (Marcaine) 0.5 % injection 5 mgStart: 12-30-2024 End: 55 mg, Injection, Once, On Sun12/30/24 at 1615, For 1 doseStart: 11-19-2024 End: 60-65-8197qiugysyufdl (Marcaine) 0.5 % injection 5 mgStart: 11-19-2024 End: mg, Injection, Once, On Sun11/19/24 at 1315, For 1 doseStart: 09-24-2024 End: 30-14-3139wolgimqbkpa (Marcaine) 0.5 % injection 5 mgStart: 09-24-2024 End: 55 mg (1 mL), Injection, Once, On Sun09/24/24 at 1045, For 1 dose Start: 08-05-2024 End: 55-34-4134eamjieaysaf (Marcaine) 0.5 % injection 5 mgStart: 08-05-2024 End: 55 mg (1 mL), Injection, Once, On Sun08/05/24 at 1545, For 1 dose Start: 07-03-2024 End: 29-90-9783sgbcauxgliu (Marcaine) 0.5 % injection 5 mgStart: 07-03-2024 End: 55 mg (1 mL), Injection, Once, On Sun07/03/24 at 1045, For 1 dose Start: 05-22-2024 End: 87-46-1049ikmqzcjopnn (Marcaine) 0.5 % injection 5 mgStart: 05-22-2024 End: mg (1 mL), Injection, Once, On Lynda 05/22/24 at 1330, For 1 dose 12 hr buPROPion hydrochloride 150 mg extended release oral tablet (10 sources)AminoketoneStart: 02-28-2019 End: 64-86-3350mkpx 1 tablet by mouth twice dailybuPROPion SR (WELLBUTRIN SR) 150 mg 12 hr tablet Take 1 tablet by mouth twice daily. 60 tablet 2 02/28/2019 10/17/2022 DiscontinuedComment on above:Take 1 tablet by mouth twice daily. dexamethasone phosphate 4 mg/ml injectable solution (20 sources)CorticosteroidStart: 03-24-2025 End: 23-15-3770bkuJQORJzhykc sod phos (Decadron) injection 4 mgStart: 03-24-2025 End: 54 mg (1 mL), Injection, Once, On Sun03/24/25 at 1415, For 1 dose Start: 02-17-2025 End: 92-86-2527fqkGHDQFzkngq sod phos (Decadron) injection 4 mgStart: 02-17-2025 End: 54 mg (1 mL), Injection, Once, On Sun02/17/25 at 1345, For 1 dose Start: 12-30-2024 End: 46-90-0200lcbHKBZMedtff sod phos (Decadron) injection 4 mgStart: 12-30-2024 End: 54 mg (1 mL), Injection, Once, On Sun12/30/24 at 1615, For 1 dose Start: 11-19-2024 End: 30-90-5991hjvNTMWRnzjca sod phos (Decadron) injection 4 mgStart: 11-19-2024 End: 54 mg (1 mL), Injection, Once, On Sun11/19/24 at 1315, For 1 dose Start: 09-24-2024 End: 65-86-4616oblHBPWFxzlhc sod phos (Decadron) injection 4 mgStart: 09-24-2024 End: 54 mg (1 mL), Injection, Once, On Sun09/24/24 at 1045, For 1 dose Start: 08-05-2024 End: 66-26-7663ykpCMVRZancwu sod phos (Decadron) injection 4 mgStart: 08-05-2024 End: 54 mg (1 mL), Injection, Once, On Sun08/05/24 at 1545, For 1 dose Start: 07-03-2024 End: 03-36-7869npoILNENuclbf sod phos (Decadron) injection 4 mgStart: 07-03-2024 End: 54 mg (1 mL), Injection, Once, On Sun07/03/24 at 1045, For 1 dose Start: 05-22-2024 End: 45-34-7239tfuFONCAqunqn (Decadron) injection 4 mgStart: 05-22-2024 End: 59-44-1039ugegof 4 mg by intramuscular injection once4 mg, Intramuscular, Once, On Sun05/22/24 at 1330, For 1 doseStart: 04-09-2024 End: mg, intravenous, Once, On Sun04/09/24 at 2215, For 1 dose Start: 02-38-9703Cnatymzjtpfrt Active MG PO December 03, 2023 12:00amStart: 12-03-2023 End: 73-73-1319Wmgsprprymkqk 2 mg tablet Discontinued MG PO December 03, 2023 12:00am April 28, 2024 10:43amStart: 98-85-2902sziLQWRSstxxm (Decadron) 2 MG tablet Indications: Cervical radiculopathy , Cervical stenosis of spinal canal , Occipital neuralgia of left side 2mg 3 pills po X3 days,2 pills po daily X3 days , then 1 pill po daily X3 days then stop 9 days 18 pills 18 tablet 0 06/14/2023 Activedoxycycline hyclate 100 mg oral capsule (14 sources)Tetracycline-class DrugStart: 11-25-2024 End: 67-41-3982zbwn 1 capsule by mouth twice dailyDoxycycline Hyclate 100 mg capsule Discontinued 100 MG PO Twice daily 06 04November 25, 2024 12:00am February 19, 2025 11:11amStart: 11-05-2018 End: 67-67-3187xkkc 1 capsule by mouth every twelve hoursdoxycycline [...] mg/ml auto-injector (4 sources)PCSK9 InhibitorStart: 10-27-2024 End: 95-74-2333djnhlo 140 mg by subcutaneous injection every other week Evolocumab (Repatha Sureclick) 140 mg/mL pen injector Discontinued 140 MG SUBCUT EVERY 2 WEEKS 6 2024 12:00am November 03, 2024 9:56amEvolocumab (Repatha Sureclick) 140 mg/mL pen injector (3 sources)Start: 10-27-2024 End: 28-91-9006bujszq 140 mg by subcutaneous injection every other week Evolocumab (Repatha Sureclick) 140 mg/mL pen injector Discontinued 140 MG SUBCUT EVERY 2 WEEKS 6 2024 12:00am November 03, 2024 9:56amezetimibe 10 mg oral tablet (20 sources)Dietary Cholesterol Absorption InhibitorStart: 11-05-2023 End: 73-17-1544zjfq 1 tablet by mouth once dailyEzetimibe 10 mg tablet Discontinued 0 .ROUTE .COMPLEX 90 November 05, 2023 10:42am April 28, 2024 10:44am take 1 tablet by mouth once dailyStart: 09-05-2023 End: 69-20-9625Stuwuobet Discontinued MG PO September 05, 2023 12:00am September 05, 2023 1:34pmStart: 06-08-2023 End: 73-59-6119kkty 1 tablet by mouth once dailyEzetimibe (Zetia) 10 mg tablet Discontinued 10 MG PO Daily August 27, 2024 12:00am August 27, 2024 4:02pm Start: 05-15-2023 End: 35-42-8889qvgy 1 tablet by mouth every weekEzetimibe 10 mg tablet Discontinued MG PO August 02, 2023 1:00am August 02, 2023 1:47pm Free TextSi tablet Orally 2 days per week; Note: Source Status: Not- TakingundefinedPRN; Provider: Kamla MCKEONtart: 45-98-8782onms 1 tablet by mouth every twenty-four hoursEzetimibe 10 MG 1 tablet Orally Once a day for 90 days Apr, Activegabapentin 100 mg oral capsule (20 sources)Anti-epileptic AgentStart: 08-02-2023 End: 51-13-9278ekov 1 capsule by mouth once dailyGabapentin 100 mg capsule Discontinued 100 MG PO Daily August 02, 2023 1:00am August 02, 2023 1:47pm FreeTextSi capsule Orally Once a day; Note: Source Status: Not- TakingundefinedPRN; Provider: Darling Camara ( )Start: 04-16-2023 End: 88-50-9636vahy 1 capsule by mouth three times dailyGabapentin 300 mg capsule Discontinued 300 MG PO Three times daily May 07, 2023 1:00am August 02, 2023 1:47pmStart: 02-27-2019 End: 27-76-1661ilrd 1 capsule by mouth three times dailygabapentin [...] injection 30 mL (1 source)Start: 12-13-2023 End: 41-38-1904rfdawi 30 mL intravenously once30 mL, intravenous, Once in imaging, Starting on [facility] 12/13/23 at 0817, For 1 dose, Administer undiluted as rapid I.V. bolus injectionhydrOXYzine hydrochloride 25 mg oral tablet (20 sources)AntihistamineStart: 05-26-2022 End: 82-75-6957vwva 1-2 tablets by mouth at bedtime as neededHydroxyzine Hcl 25 mg tablet Discontinued MG PO August 02, 2023 1:00am September 05, 2023 1:37pm FreeTextSi-2 tablets Orally HS as needed; Note: Source Status: Taking; Provider: Darling Camara RComment on above:take 1 to 2 tablets by mouth at bedtime if neededibuprofen 800 mg oral tablet (20 sources)Nonsteroidal Anti-inflammatory DrugStart: 08-02-2023 End: 11-07-9097zyfr 1 tablet by mouth three times daily as needed for pain Ibuprofen 800 mg tablet Discontinued 800 MG PO Three times daily as needed for pain September 05, 2023 1:35pm October 06, 2024 2:06pm FreeTextSi tablet with food or milk as needed Orally Three times a day; Note: Source Status: TakingPRN; Provider: Darling Camara ( )Start: 04-17-2022 End: 79-91-8008hkbf 1 tablet by mouth every eight hours [...] capsule (20 sources)Nonsteroidal Anti-inflammatory DrugStart: 08-02-2023 End: 57-11-2509scil 1 capsule by mouth once daily at mealtimeIndomethacin 75 mg capsule, extended release Discontinued 75 MG PO Daily August 02, 2023 1:00am August 02, 2023 1:48pm FreeTextSi capsule with food Orally Once a day; Note: Source Status:Not-TakingundefinedPRNprn; Provider: Darling Camara ( )Start: 07-17-2022 End: 06-76-3319fkfqdgdjvezh (INDOCIN) 25 mg capsule Indomethacin Active 25 MG PO Daily July 17, 2022 1:00am 07/17/2022 11/02/2023 Discontinued (Discontinued by Patient)Start: 07-17-2022 End: 56-65-0141ikij 1 capsule by mouth once dailyIndomethacin 25 [...] Ketorolac (20 sources)Nonsteroidal Anti-inflammatory Drug, Cyclooxygenase InhibitorStart: 67-68-8219Vwshcqu per 15 mg Jan, 2 mLlisinopril 10 mg oral tablet (20 sources)Angiotensin Converting Enzyme InhibitorStart: 10-18-2023 End: 59-37-4917cbrv 1 tablet by mouth once dailyLisinopril 10 mg tablet Discontinued 10 MG PO Daily April 01, 2024 11:02am September 29, 2024 3:11pmStart: 09-05-2023 End: 94-67-1386hjik 1 tablet by mouth once dailyLisinopril 5 mg tablet Discontinued 5 MG PO Daily September 05, 2023 12:00am October 18, 2023 9:30am take 2 tablets by mouth once dailylisinopril 5 mg tablet Take 2 tablets (10 mg) by mouth once daily. Activemeclizine hydrochloride 25 mg oral tablet (20 sources)AntiemeticStart: 04-29-2018 End: 44-39-1139pecn 1 tablet by mouth three times daily as needed for dizziness Meclizine 25 mg tablet Discontinued 25 MG PO Three times daily as needed for dizziness April 29, 2018 1:00am April 06, 2022 4:26pmmethocarbamol 750 mg oral tablet (20 sources)Muscle RelaxantStart: 05-21-2024 End: 23-44-6097llnp 1 tablet by mouth once daily at bedtimeMethocarbamol 750 mg tablet Discontinued 750 MG PO Daily at bedtime July 03, 2024 1:00am September 20, 2024 11:05amStart: 12-03-2023 End: 84-12-1727Aohiwwpxqhicn 500 mg tablet Discontinued 500 MG PO December 03, 2023 10:58am April 28, 2024 10:45amStart: 12-03-2023 End: 44-85-9573Gmhabeovjuzdb Discontinued MG PO December 03, 2023 12:00am December 03, 2023 10:59ammethylPREDNISolone 4 mg oral tablet (20 sources)CorticosteroidStart: 11-25-2024 End: 16-53-6503Okfuxebfgshtvxyvlo 4 mg tablets,dose pack Discontinued 0 PO per package directions November 25, 2024 12:00am February 19, 2025 11:11am PO PER PKG DIRStart: 11-19-2024 End: 94-74-5804kage 1 tablet by mouth onceMethylprednisolone (Medrol (Slim)) 4 mg tablets,dose pack Discontinued 0 PO per package directions November 19, 2024 12:00am February 19, 2025 11:11am PO PER PKG DIR for 6 daysStart: 08-02-2023 End: 46-33-1505Zzryydpvislfpcpcvp 4 mg tablets,dose pack Discontinued MG PO As Directed August 02, 2023 1:00amFebruary 2023 1:48pm FreeTextSig: as directed Orally as directed; Note: Source Status: Zsjiy3pbxt; Refills: 0; Provider: Darling Camara RStart: 08-02-2023 End: 89-51-7529Gkvskquyjzhvozvzvm Discontinued MG PO As Directed August 02, 2023 1:00am August 02, 2023 1:48pm FreeTextSig: as directed Orally as directed; Note: Source Status: Start1 pack; Refills: 0; Provider: Darling Driver Start: 08-02-2023 End: 02-66-4489Qejaoxlgdivpysruvb Discontinued MG PO As Directed August 02, 2023 12:00am August 02, 2023 12:48pm FreeTextSig: as directed Orally as directed; Note: Source Status: Start1 pack; Refills: 0; Provider: Darling Driver Start: 11-78-7856vnsvuwOGSCRUGmwdql 4 MG as directed Orally as directed 1 pack Jun, ActiveStart: 69-46-6619Xojaee 4 MG as directed Orally Feb, ActiveStart: 64-31-9294oqweukXRBOCJQnrcwb 4 MG as directed Orally Nov, Not-TakingStart: 44-00-1749hxosodDAKAIZIlglwj 4 MG as directed Orally as directed Jun, Activemirtazapine 15 mg oral tablet (20 sources)Start: 09-01-2022 End: 24-51-7429cigq 0.5 tablet by mouth once daily at bedtime as needed Mirtazapine 15 mg tablet Discontinued MG PO Daily at bedtime as needed September 05, 2023 1:35pm October 29, 2023 10:19am FreeTextSi/2 tablet at bedtime Orally Once a day; Note: Source Status: Taking; Provider: Darling Camara ( )Start: 09-01-2022 End: 60-93-0727axym 1 tablet by mouth once daily at bedtime as neededMirtazapine 15 mg tablet Discontinued 15 MG PO Daily at bedtime as needed for restless leg(s) October 29, 2023 10:18am October 06, 2024 2:06pmStart: 07-17-2022 End: 96-76-3835vkcs 1 tablet by mouth at bedtime as neededMirtazapine 7.5 mg Tablet Discontinued 7.5 MG PO Bedtime as needed for Insomnia July 17, 2022 1:00am August 02, 2023 1:49pmComment on above:Take by mouth daily at bedtime.montelukast 10 mg oral tablet (20 sources)Leukotriene Receptor AntagonistStart: 07-17-2022 End: 51-65-8929pkqt 1 tablet by mouth once dailyMontelukast (Singulair) 10 mg tablet Discontinued 10 MG PO Daily August 02, 2023 1:00am August 02, 2023 2:10pm FreeTextSi tablet Orally Once a day; Note: Source Status: Taking; Provider: Darling Camara ( )Comment on above:Take 10 mg by mouth daily at bedtime.naproxen 500 mg oral tablet (20 sources)Nonsteroidal Anti-inflammatory DrugStart: 12-10-2017 End: 17-51-5776imkg 1 tablet by mouth twice daily at mealtimeNaproxen 500 mg tablet Discontinued 500 MG PO Twice daily December 10, 2017 12:00am April 3:12pm administer with food or milk24 hr nicotine 0.875 mg/hr transdermal system (12 sources)Cholinergic Nicotinic AgonistStart: 08-14-2023 End: 69-51-7420icqga 1 dose transdermal route every twenty-four hoursnicotine [...] (20 sources)Angiotensin 2 Receptor BlockerStart: 05-07-2023 End: 63-40-4777Bneusszkjj 20 mg tablet Discontinued MG May 07, 2023 1:00am August 02, 2023 1:50pmStart: 05-07-2023 End: 64-73-7694Vzbgcvdpit Discontinued MG TABLET May 07, 2023 1:00am August 02, 2023 1:50pmondansetron 4 mg disintegrating oral tablet (13 sources)Serotonin-3 Receptor AntagonistStart: 10-06-2024 End: 77-94-2838urjs 1 tablet by mouth every eight hours as needed for nausea and vomitingOndansetron 4 mg tablet,disintegrating Discontinued 4 MG PO Every 8 hours as needed for nausea and vomiting 9 3 October 06, 2024 12:00am October 24, 2024 11:48amStart: 14-32-1630oduj 1 tablet by mouth every eight hours as needed ondansetron (Zofran) tablet 4 mgoxygen (O2) therapy (1 source)Start: 04-09-2024 End: 71-46-2481ebrjaxhurp, Continuous - Inhalation, First dose on Sun04/09/24 at 1715, Recovery (only), Device: Nasal Cannula, Rate in liters per minute: Other, Custom Value: 1-6 LPM, Keep O2 Sat Above: 92%pravastatin sodium 40 mg oral tablet (20 sources)HMG-CoA Reductase InhibitorStart: 11-05-2023 End: 95-53-9261jriz 1 tablet by mouth once dailyPravastatin 40 mg tablet Discontinued 0 .ROUTE .COMPLEX 90 August 27, 2024 4:02pm October 0652:06pm take 1 tablet by mouth once dailyStart: 07-06-2023 End: 11-43-6074ybfo 1 tablet by mouth once dailyPravastatin 40 mg tablet Discontinued 40 MG PO Daily October 29, 2023 12:00am November 05, 2023 10:42amStart: 72-03-4993dfey 1 tablet by mouth every twenty-four hoursPravastatin Sodium 40 MG 1 tablet Orally Once a day for 90 days Apr, ActivepredniSONE 10 mg oral tablet (20 sources)Start: 03-21-2023 End: 30-70-5129Oyhfdffari 10 mg tablet Discontinued 60 MG PO Daily March 21, 2023 12:00am May 07, 2023 9:24am administer with food or milkStart: 03-21-2023 End: 27-30-5052izjb 60 mg by mouth once daily at mealtimePrednisone Discontinued 60 MG PO Daily March 21, 2023 12:00am May 07, 2023 9:24am admin ister with food or milkStart: 04-06-2022 End: 24-68-5151npzn 2 tablets by mouth once daily at mealtimePrednisone 20 mg tablet Discontinued 40 MG PO Daily April 06, 2022 12:00am July 17, 2022 9:01am administer with food or milkStart: 04-06-2022 End: 50-97-6818jyww 40 mg by mouth once daily at mealtimePrednisone Discontinued 40 MG PO Daily April 06, 2022 12:00am July 17, 2022 9:01am admin ister with food or milkpregabalin 50 mg oral capsule (20 sources)Start: 06-30-2024 End: 03-75-6535qhyu 1 capsule by mouth once dailyPregabalin 50 mg capsule Discontinued 50 MG PO Daily July 03, 2024 1:00am September 20, 2024 11:05am Start: 06-30-2024 End: 41-40-4978dlgq 1 capsule by mouth twice dailypregabalin (Lyrica) 50 mg capsule Indications: Status post cervical spinal fusion Take 1 capsule (50 mg) by mouth 2 times a day. 60 capsule 06/30/2024 Activepromethazine hydrochloride 25 mg oral tablet (20 sources)PhenothiazineStart: 04-29-2018 End: 18-95-3247tirg 1 tablet by mouth every six hours as needed for nausea Promethazine 25 mg Tablet Discontinued 25 MG PO Q6H as needed for Nausea September 08, 2021 12:00am April 06, 2022 4:26pmtake 1 tablet by mouth every twelve hoursPromethazine HCl 25 MG 1 tablet as needed Orally every 12 hrs Active rimegepant 75 mg disintegrating oral tablet (20 sources)Start: 04-06-2022 End: 87-34-7263Dtfkcozmfv (Nurtec Odt) 75 mg tablet,disintegrating Discontinued 75 MG PO Q48H April 06, 2022 12:00am July 17, 2022 9:02amtake 1 tablet by mouth once dailyNurtec 75 MG 1 tablet on the tongue and allow to dissolve Orally Ever Other Day Activerosuvastatin calcium 5 mg oral tablet (20 sources)HMG-CoA Reductase InhibitorStart: 04-95-4163trfs 1 tablet by mouth once dailyrosuvastatin (Crestor) 5 MG tablet Take 5 mg by mouth Daily 06/27/2023 ActiveStart: 05-31-2023 End: 98-98-5456wjoo 1 tablet by mouth every weekRosuvastatin 5 [...] topical cream (20 sources)Allylamine AntifungalStart: 12-03-2023 End: 51-65-0321Ckrgqeypuyg Hcl 1 % cream Discontinued APPLIC TOPICAL December 03, 2023 12:00am September 20, 2024 11:05amStart: 12-02-9867Ambwpptcpfi Hcl Active APPLIC TOPICAL December 03, 2023 12:00amStart: 63-27-2903zjufgenemad (LamISIL AT) 1 % cream Indications: Tinea manuum Apply to the affected area on the hand, bid, 30 day supply 42 g 1 11/28/2023 Activetopiramate 100 mg oral tablet (1 source)take 1 tablet by mouth every twenty-four hoursTopamax 100 MG 1 tablet Orally Once a day Not-TakingToradol 30 mg/ml (20 sources)Start: 74-58-5770Wrumvvg 30 mg/ml Jun, 60 mgStart: 21-50-6153Edatwcc 30 mg/ml Aug, 60 mgTriamcinolone (20 sources)CorticosteroidStart: 14-51-9641JJBEABO - 10 mg Jan, 1.5 cc24 hr divalproex sodium 250 mg extended release oral tablet (20 sources)Mood Stabilizer, Anti-epileptic AgentStart: 34-92-3780nsxp 1 tablet by mouth once dailydivalproex ER (DEPAKOTE ER) 250 mg 24 hr tablet Take 250 mg by mouth once daily. 0 09/28/2021 ActiveStart: 95-34-7084clzz 1 tablet by mouth every twenty-four hoursDivalproex Sodium ER 250 MG Oral Tablet Extended Release 24 Hour Quantity: 90 Refills: 0 Ordered: 28-Sep-2021 DO Start : 28-Sep-2021 ActiveComment on above:Take 250 mg by mouth once daily.vortioxetine 5 mg oral tablet (4 sources)Start: 09-12-2021 End: 08-11-3211aego 1 tablet by mouth every twenty-four hoursvortioxetine (TRINTELLIX) 5 mg tablet Take by mouth every 24 hours. 09/12/2021 11/03/2024 DiscontinuedStart: 47-12-7764jtzp 1 tablet by mouth every twenty-four hours Trintellix 5 MG 1 tablet Orally Once a day for 30 day(s) Samples Aug, Activezonisamide 25 mg oral capsule (9 sources)Anti-epileptic AgentStart: 10-18-2022 End: 69-07-2935cecxpdfxih (ZONEGRAN) 25 mg capsule take 1 capsule [...] (20 sources)Abdominal pain; Translations: [Unspecified abdominal pain]Onset: 168572-31-3286KadwmntmEslbffqz reactions (20 sources)Eczema; Translations: [Dermatitis, unspecified]EpisodicAnxiety disorders (20 sources)Anxiety; Translations: [Anxiety state, unspecified]Onset: 04-14-2021 Resolved: 28-18-3276ElgslhiKgefjk of head and neck (20 sources)Squamous cell carcinoma of head and neck; 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 of head, face and neck]Onset: 17-75-2213HnnijpcDnxlhw of head and neck (20 sources)History of malignant neoplasm of head and/or neck; Translations: [Personal history of malignant neoplasm of unspecified site of lip, oral cavity, and pharynx]Onset: 116803-26-4804OepzsrtfGwmxue; other and unspecified primary (3 sources)History of squamous cell carcinoma; Translations: [Personal history of malignant neoplasm of other sites]EpisodicCardiac dysrhythmias (20 sources)Cardiac arrhythmia; Translations: [Cardiac arrhythmia, unspecified] Onset: 89-94-7888NxwuhekCrevrgjw (20 sources)Age-related nuclear cataract of right eye; Translations: [Age- related nuclear cataract, right eye]Onset: 620520-73-7295UnnjfefHgpodyiggz associated with dizziness or vertigo (20 sources)Lightheadedness; Translations: [Dizziness and giddiness]Onset: 80-62-0496GkwkxkgeShzfehhejf disorders (20 sources)First degree atrioventricular block; Translations: [Atrioventricular block, first degree]Onset: 492532-00-9925NibiobzPlivaxva atherosclerosis and other heart disease (20 sources)Coronary arteriosclerosis; Translations: [Atherosclerotic heart disease of [place] coronary artery without angina pectoris]Onset: 02-26-2024 97-57-0320WapbzmpYoowwkhki of lipid metabolism (20 sources)Hyperlipidemia; Translations: [Hyperlipidemia, unspecified]Onset: 09-19-2021 Resolved: 51-56-4237IsclhvpMdfgyzlciz disorders (8 sources)Gastroesophageal reflux disease; Translations: [Gastro-esophageal reflux disease without esophagitis]78-13-5830FvflyyqCjxvugnao hypertension (20 sources)Essential hypertension; Translations: [Essential (primary) hypertension]Onset: 16-98-0102NfjjwniWbylc and electrolyte disorders (12 sources)Dehydration; Translations: [Dehydration]15-55-5948QxmdokuvYbkrlyar (20 sources)Preglaucoma, unspecified, right eye; Translations: [Preglaucoma, unspecified]Onset: 115886-08-4090DxzwoltSplrzicv; including migraine (20 sources)Migraine; Translations: [Migraine, unspecified, not intractable, without status migrainosus]Onset: 00-59-5068UkygkuvQloikiao; including migraine (20 sources)Headache; Translations: [Headache]EpisodicLymphadenitis (1 source)Enlarged lymph nodes, unspecifiedEpisodicMalignant neoplasm without specification of site (20 sources)Primary malignant neoplasm; Translations: [Malignant (primary) neoplasm, unspecified]Onset: 241079-34-8878SokaxdtLvzn disorders (3 sources)Depressive disorder; Translations: [Depressive disorder, not elsewhere classified]ChronicOsteoarthritis (20 sources)Arthritis; Translations: [Unspecified osteoarthritis, unspecified site]Onset: 409152-52-9960WczjgnjSauffhjftame (20 sources)Senile osteoporosis; Translations: [Age-related osteoporosis without current pathological fracture]Onset: 248711-64-7914BqzgobxOvsme and unspecified benign neoplasm (2 sources)Acoustic neuroma; Translations: [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Other and unspecified benign neoplasm (2 sources)Melanocytic nevus of trunk; Translations: [Melanocytic nevi of trunk] 80-33-7053ZqnmeumnGkqbr and unspecified benign neoplasm (9 sources)Polyp of colon; Translations: [Polyp of colon]87-81-6788EnqjxkfqFjftv circulatory disease (1 source)Presence of other vascular implants and graftsChronicOther circulatory disease (4 sources)Elevated blood-pressure reading, without diagnosis of hypertension Onset: 12-26-2021 Resolved: 48-95-2325EqwxbcooHoyiq circulatory disease (15 sources)Elevated blood pressure; Translations: [Elevated blood-pressure reading, without diagnosis of hypertension]EpisodicOther circulatory disease (1 source)Other specified symptoms and signs involving the circulatory and respiratory systemsEpisodicOther circulatory disease (2 sources)Spider nevus; Translations: [Nevus, non-neoplastic]80-74-2344Cyrddrux Other connective tissue disease (3 sources)History of cervical spine fusion; Translations: [Arthrodesis status] 64-93-4307FtpqroowAhnyd connective tissue disease (1 source)Muscle spasm of cervical muscle of neck; Translations: [Other muscle spasm]24-45-9199KsrlgdzaXjulg ear and sense organ disorders (16 sources)Otalgia, left ear; Translations: [Left ear pain]EpisodicOther ear and sense organ disorders (11 sources)Bilateral tinnitus; Translations: [Tinnitus, bilateral]EpisodicOther ear and sense organ disorders (1 source)Tinnitus, bilateralEpisodicOther gastrointestinal disorders (8 sources)Altered bowel function; Translations: [Change in bowel habit] 08-75-7563DxufmjbmWnomd gastrointestinal disorders (8 sources)Dysphagia; Translations: [Dysphagia, unspecified]83-48-6374Hmwevgaf Other gastrointestinal disorders (8 sources)Diarrhea; Translations: [Diarrhea, unspecified]74-68-6889Gluyvkzc Other gastrointestinal disorders (6 sources)Change in bowel habit; Translations: [Other symptoms involving digestive system]47-07-3349BdczvwsxLxygy gastrointestinal disorders (6 sources)Dysphagia, unspecified; Translations: [Dysphagia, unspecified] 68-12-4975DlroyzokFphva hereditary and degenerative nervous system conditions (20 sources)Isolated cervical dystonia; Translations: [Spasmodic torticollis] Onset: 892127-31-6018QsbptveRsgtl infections; including parasitic (20 sources)Personal history of other infectious and parasitic diseases; Translations: [History of COVID-19]36-73-3465LlkwoovfFqgjy lower respiratory disease (20 sources)Solitary nodule of lung; Translations: [Solitary pulmonary nodule] EpisodicOther lower respiratory disease (20 sources)Productive cough ; Translations: [Productive cough]Onset: 10-16-2023 89-71-6045EpsvymkhRqylg nervous system disorders (3 sources)Demyelinating disease of central nervous system; Translations: [Other demyelinating diseases of central nervous system]ChronicOther nervous system disorders (20 sources)Mass lesion of brain; Translations: [Other specified disorders of brain]Onset: 186488-92-9334FffyxcyJvdti nervous system disorders (5 sources)Disorder of brain, unspecifiedOnset: 10-24-2021 Resolved: 83-98-6618PybcxrdYsqyd nervous system disorders (2 sources)Raised intracranial pressure; Translations: [Benign intracranial hypertension]ChronicOther nervous system disorders (1 source)Benign intracranial hypertensionChronicOther nervous system disorders (1 source)Normal pressure hydrocephalus; Translations: [(Idiopathic) normal pressure hydrocephalus]ChronicOther nervous system disorders (1 source)(Idiopathic) normal pressure hydrocephalus; Translations: [NPH (normal pressure hydrocephalus) (HCC)]Onset: 32-73-4765OlbmravYllys nervous system disorders (20 sources)Brachial plexus disorder; Translations: [Brachial plexus disorders] Onset: 288019-00-0190BtffwfgTiwrk nervous system disorders (20 sources)Ulnar neuropathy; Translations: [Lesion of ulnar nerve, unspecified upper limb]Onset: 365145-34-5181UpdeynvWtnic nervous system disorders (1 source)Lesion of brainstem; Translations: [Disorder of brain, unspecified] 04-55-0565XamxfhfTywso nervous system disorders (4 sources)Other specified disorders of brain; Translations: [Other conditions of brain]67-18-3347RaxocyhOjigd nervous system disorders (19 sources)Central pontine myelinolysis; 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]Onset: 914675-13-2462TfmonhhEwdwn nervous system disorders (20 sources)Disorder of nerve root and/or plexus; Translations: [Other nerve root and plexus disorders]Onset: 473215-26-6852WyhzxslDkcfs nervous system disorders (6 sources)Finding of sensation of upper limb; Translations: [Paresthesia of skin]EpisodicOther nervous system disorders (20 sources)Paresthesia of left lower limb; Translations: [Paresthesia of skin] Onset: 914387-84-7000JguzskaiRwuft nervous system disorders (2 sources)Anesthesia of skinOnset: 01-30-2022 Resolved: 75-76-2683HymsrqbbMwcva nervous system disorders (20 sources)Burning sensation; Translations: [Other disturbances of skin sensation]Onset: 349849-89-4168NtopbtdmCytbq nervous system disorders (1 source)Other disturbances of skin sensationEpisodicOther nervous system disorders (20 sources)Impairment of balance; Translations: [Other abnormalities of gait and mobility]Onset: 783897-92-7851MpjpgmrcOsnfx nervous system disorders (6 sources)Other abnormalities of gait and mobility; Translations: [Other symptoms involving nervous and musculoskeletal systems]EpisodicOther nervous system disorders (1 source)Acute postoperative pain; Translations: [Other acute postprocedural pain]54-19-2642TbvomezrBppve non-epithelial cancer of skin (20 sources)Squamous cell carcinoma of skin; Translations: [Squamous cell carcinoma of skin, unspecified]88-71-2254PsynvyuuHxwccvy on above:head/neckOther non-traumatic joint disorders (20 sources)Joint pain; Translations: [Pain in unspecified joint]08-02-2023 EpisodicOther non-traumatic joint disorders (20 sources)Pain in left shoulder; Translations: [Pain in joint, shoulder region]Onset: 61-15-8807UjxxkhphAyphy non-traumatic joint disorders (1 source)Pain in unspecified jointEpisodicOther non-traumatic joint disorders (2 sources)Pain in right shoulder; Translations: [Pain in joint, shoulder region]41-73-6565XiivcrusVgtxu nutritional; endocrine; and metabolic disorders (3 sources)Weight loss; Translations: [Loss of weight]EpisodicOther nutritional; endocrine; and metabolic disorders (3 sources)H/O: metabolic disorder; Translations: [Personal history of other endocrine, metabolic, and immunity disorders]EpisodicOther nutritional; endocrine; and metabolic disorders (7 sources)Unexplained weight loss ; Translations: [Abnormal weight loss] 79-62-6523IbjdpgcoAybgd nutritional; endocrine; and metabolic disorders (3 sources)Abnormal weight loss; Translations: [Loss of weight]10-10-2024 EpisodicOther screening for suspected conditions (not mental disorders or infectious disease) (20 sources)Encounter for screening for malignant neoplasm of prostate; Translations: [Magnetic resonance imaging of brain abnormal]Onset: 09-19-2021 Resolved: 67-66-8362DpgaxxolAvcsr skin disorders (20 sources)Mass of neck; Translations: [Localized swelling, mass and lump, neck]EpisodicOther skin disorders (20 sources)Vesicular eczema; 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]]Onset: 129375-49-9895PrjntdpwDczyg skin disorders (1 source)Dyshidrosis [pompholyx]EpisodicOther skin disorders (1 source)Finding of neck region; Translations: [Localized swelling, mass and lump, neck]50-12-4080NfcvbyqjOxqtb skin disorders (2 sources)Seborrheic keratosis; Translations: [Other seborrheic keratosis] 58-48-3076SkppvpbdPvmio skin disorders (2 sources)Inflamed seborrheic keratosis; Translations: [Inflamed seborrheic keratosis]58-59-5351AtdomxrwSgmci skin disorders (2 sources)Actinic keratosis; Translations: [Actinic keratosis]01-08-2025 EpisodicOther upper respiratory disease (3 sources)Other specified disorders of nose and nasal sinusesOnset: 06-29-2021 Resolved: 39-02-9488JhdfimisChcmp upper respiratory disease (4 sources)Nasal sinus problem; Translations: [Other specified disorders of nose and nasal sinuses]EpisodicOther upper respiratory infections (13 sources)Sinusitis; Translations: [Chronic sinusitis, unspecified]Onset: 06-30-2021 Resolved: 39-22-8381NaktakiNjlrf upper respiratory infections (20 sources)Acute pharyngitis, unspecified; Translations: [Acute sinusitis] Onset: 75-09-9088ByvgvmigSlowzp media and related conditions (20 sources)Acute transudative otitis media; Translations: [Other acute nonsuppurative otitis media, left ear]Onset: 961911-91-1288Loazcfdt Peripheral and visceral atherosclerosis (20 sources)Intermittent claudication; Translations: [Peripheral vascular disease, unspecified]Onset: 78-51-8991AeerzbhRamandisz (except that caused by tuberculosis or sexually transmitted disease) (13 sources)Pneumonia; Translations: [Pneumonia, unspecified organism]09-20-2024 EpisodicResidual codes; unclassified (4 sources)Postprocedural state finding; Translations: [Presence of other specified functional implants]99-98-6531QfypsoiZyzkojrd codes; unclassified (20 sources)Insomnia; Translations: [Insomnia, unspecified]Onset: 12-10-2022 42-20-9778JffcmonmPoowfjyc codes; unclassified (2 sources)Insomnia, unspecifiedEpisodicResidual codes; unclassified (18 sources)History of cervical discectomy; Translations: [Other specified postprocedural states]97-34-7695EravtkiuMfralomd codes; unclassified (4 sources)Other specified postprocedural states; Translations: [Other postprocedural status]95-77-7197WlajhtlvNqrtwvdu codes; unclassified (7 sources)Early satiety; Translations: [Early satiety]33-76-0436Oikrgzkd Residual codes; unclassified (3 sources)Early satiety; Translations: [Early satiety]02-78-9448Tfpcwsix Secondary malignancies (3 sources)Metastasis to head and neck lymph node; Translations: [Secondary and unspecified malignant neoplasmof lymph nodes of head, face, and neck]Chronic Secondary malignancies (2 sources)Secondary malignant neoplastic disease; Translations: [Other malignant neoplasm without specification of site]ChronicSecondary malignancies (20 sources)Secondary malignant neoplasm of lymph node; Translations: [Secondary and unspecified malignant neoplasm of lymph node, unspecified]Onset: 12-10-2022 58-56-0861BoedwcqWbbfppollsk; intervertebral disc disorders; other back problems (20 sources)Cervical spondylosis; Translations: [Spondylosis without myelopathy or radiculopathy, cervical region]Onset: 14-32-2982YrjiyqxKembuwvuvnz; intervertebral disc disorders; other back problems (20 sources)Neck pain; Translations: [Cervicalgia]Onset: 12-05-2021 Resolved: 14-25-7785OeqessxzFvzhhfvye-related disorders (20 sources)Nicotine dependence with current use; Translations: [Nicotine dependence, unspecified, uncomplicated]Onset: 04-14-2021 Resolved: 19-80-4933PwhokpnWpwkwtx disorders (3 sources)Thyroid nodule; 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 Transient cerebral ischemia (20 sources)Transient cerebral ischemia; Translations: [Transient cerebral ischemic attack, unspecified]ChronicUnclassified (9 sources)Patient has spine surgeryOnset: 702646-29-1277Wpyptspamhsg (3 sources)History of cervical spine -15-3219Rjgwanvtprob (2 sources)Post-op Spine Surgery; Translations: [Post-op Spine Surgery]Onset: 45-33-0077Aoedw infection (15 sources)Respiratory syncytial virus infection; Translations: [Other specified viral diseases]Onset: 49-36-5795Yswsnqah Past or Other Problems Problem ClassificationProblemDateDocumented DateEpisodic/ChronicBlindness and vision defects (20 sources)Unspecified visual disturbance; Translations: [Visual disturbance] Onset: 01-30-2022 Resolved: 95-03-1627ZikjkyjbNmroib of brain and nervous system (20 sources)Glial tumor of brain; 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, unspecified]Onset: 10-13-2021 Resolved: 09-01-3733FbdgawgBysjpqmapuwn (except that caused by tuberculosis or sexually transmitted disease) (19 sources)Myelitis; Translations: [Myelitis, unspecified]Onset: 08-29-2023 52-63-3973ZbwcegdeDymisghf; including migraine (3 sources)Headache; including migraineOnset: 11-01-2021 Resolved: 91-21-4997Qcdqdgl and fatigue (20 sources)Asthenia; Translations: [Weakness]Onset: EpisodicOther and unspecified benign neoplasm (20 sources)Schwannoma; Translations: [Benign neoplasm of peripheral nerves and autonomic nervous system, unspecified]Onset: 329352-55-5936WdwdjykePhxch connective tissue disease (20 sources)Muscle pain; Translations: [Myalgia, unspecified site]Onset: 582995-58-4435VohjeqobEazuf connective tissue disease (20 sources)Pain in left arm; Translations: [Pain in left arm]Onset: 12-29-2022 53-88-3741KwzyjmlxFcpdo connective tissue disease (20 sources)Spasm of cervical paraspinous muscle; Translations: [Other muscle spasm]Onset: 185171-23-5848ExoourfmAbdve connective tissue disease (20 sources)Radicular pain; Translations: [Neuralgia and neuritis, unspecified] Onset: 700817-08-5161LshuvosrXjhas connective tissue disease (2 sources)Arthrodesis status; Translations: [Arthrodesis status]Onset: 81-13-0502YdwmrhkgErwpe connective tissue disease (2 sources)Other muscle spasm; Translations: [Other muscle spasm]Onset: 66-87-8311YhhqdicgJmgoo gastrointestinal disorders (7 sources)Diarrhea, unspecified; Translations: [Diarrhea]Onset: 11-05-2024 66-34-6466ScrdiqgrOfgho lower respiratory disease (20 sources)Multiple nodules of lung; Translations: [Other nonspecific abnormal finding of lung field]Onset: 69-03-7722ExqtwjngXdbjn lower respiratory disease (1 source)Shortness of breath; Translations: [Shortness of breath]Onset: 46-29-6441PvtrhcgjJpkwb nervous system disorders (20 sources)Skin sensation disturbance; Translations: [Anesthesia of skin]Onset: 572679-04-8611VkmwwakjAbent nervous system disorders (2 sources)Other acute postprocedural pain; Translations: [Other acute postprocedural pain]Onset: 00-86-3263BaqbauvvYlsqb upper respiratory disease (1 source)Nasal congestionOnset: 04-19-2021 Resolved: 96-53-3411XmlmuaxwMtjidrum codes; unclassified (1 source)Other general symptoms and signsOnset: 01-30-2022 Resolved: 48-89-4850IzfouarzFmsfflgrncst (1 source)Pressure in head R51.9Onset: 12-26-2021 Resolved: 47-37-7698Fdblgzdikscn (1 source)Cough R05.9Unclassified (1 source)Acute cough R05.1Unclassified (14 sources)Onset: 10-05-2023 Resolved: Results Test NameValueInterpretationReference GgyrrBjrkruvz53ew 91-29-225307Vkhaktbfm faxed to Dr. HarveyNormalUniversity [facility]36on 04-06-2025 36Patient called in and stated his blood thinner holding directions needs to come from his Vascular doctor in [place] - Dr. Harvey ph [phone] City HospitalTelephoneon [phone] Shantel Melendez 1960 M Date Provider Department Center 04/06/2025 [facility]OTH[facility] Second Fl Family History Problem Relation Age of Onset Heart disease Mother Cancer Father Stroke Paternal Grandfather Family Status - Relation Status Age at Mother Alive Father Alive Paternal Grandfather AliveNormalUniversAvita Health System Ontario HospitalUS ankle/arm indiceson 42-98-8616PT ankle/arm indicesFIRELANDS REGIONAL [place] [address] Ultrasound Report Signed Patient: Shantel Melendez MR#: [id number] : 1960 Acct:[id number] Age/Sex: 64 / M ADM Date: 02/26/25 Loc: UL Room: Type: [facility] CLI Attending Dr: Griselda Hastings DO Ordering [...] Harvey MD,FACS,FSVS 02/27/2025 7:42 AM Dictation Location: [place] [address] Tech: Agueda Helm Transcribed By: [facility] 02/27/25 0742 Dictated By: Ruddy Harvey MD 02/27/25 0741 Signed By: 02/27/25 0742[facility] GroupBasophils Auto (Bld) [#/Vol] Ordered By: Sofia Marker on 13-82-0788Plxclugku (Bld) [#/Vol]0.1 10 3/uL 0.0-0.1FWayne HealthCare Main CampusBasophils/100 WBC Auto (Bld)Ordered By: Sofia Marker on 64-23-5981Wedgwikoj/100 WBC (Bld)0.7 %0.2-2.0[facility] HealthEosinophils/100 WBC Auto (Bld)Ordered By: Sofia Marker on 13-63-1525Aonfuywrqat/100 WBC (Bld)1.1 %0.9-7.0[facility] HealthErythrocyte distribution width Auto (RBC) [Ratio]Ordered By: Sofia Marker on 77-01-4921Ocidlljjwbn distribution width (RBC) [Ratio]13.4 %11.0-15.0 [facility] HealthFibrin D-dimer [Presence] in Platelet poor plasma by Latex agglutinationOrdered By: Sofia Marker on 60-15-2643Yhiinj D- dimer LA Ql (PPP)0.56 mg/L FEU<=0.59K[facility] HealthComment on above:Increases in D-Dimer concentration observed withthromboembolic [...] Calc (S) [Mass/Vol]Ordered By: Sofia Marker on 73-34-6021Wmkxjlye (S) [Mass/Vol]2.5 g/dLKettering HealthGlomerular filtration rate (GFR) estimation in non- AmericanOrdered By: Sofia Marker on 02-18-2025 GFR/1.73 sq M.predicted among non-blacks MDRD (S/P/Bld) [Vol rate/Area] mL/min/{1.73_m2}>=60 mL/min/1.73m 2FWayne HealthCare Main CampusHematocrit Auto (Bld) [Volume fraction]Ordered By: Sofia Marker on 45-07-0992Wkdhyyqpfg (Bld) [Volume fraction]39.7 %Low42.0-54.0[facility] Hemoglobin [Mass/volume] in BloodOrdered By: Sofia Marker on 02-18-2025 Hemoglobin (Bld) [Mass/Vol]13.8 g/dLLow14.0-18.0[facility] HealthLaboratory - Chemistry and Chemistry - challengeOrdered By: Sofia Marker on 93-24-5341Sdnwrjd [Mass/Vol]3.0 g/dLLow3.4-5.0[facility] HealthALP [Catalytic activity/Vol]68 U/Y03-207HsuukgnvyKettering Health ALT [Catalytic activity/Vol]18 U/U84-34JszmexyyzKettering HealthAST [Catalytic activity/Vol]11 U/DMvx52-51QgeyskocsKettering HealthBilirubin [Mass/Vol]0.8 mg/dL0.2-1.0[facility] HealthCalcium [Mass/Vol]9.5 mg/dL8.5-10.1FWayne HealthCare Main CampusChloride [Moles/Vol]108 mmol/L Pywb28-910WcyhbwxwyKettering HealthCO2 [Moles/Vol]27.5 mmol/L21.0-32.0 [facility] HealthCreatinine [Mass/Vol]0.87 mg/dL0.70-1.30 [facility] HealthGFR/1.73 sq M.predicted MDRD (S/P/Bld) [Vol rate/Area]mL/min/{1.73_m2}>=60 mL/min/1.73m 2FWayne HealthCare Main Campus Glucose [Mass/Vol]78 mg/uU01-344PzmwbruxbKettering HealthPotassium [Moles/Vol]4.1 mmol/L3.5-5.1FWayne HealthCare Main CampusProtein [Mass/Vol] 5.5 g/dLLow6.4-8.2FThe University of Toledo Medical Centerodium [Moles/Vol]144 mmol/L 136-145K[facility]tering HealthUrea nitrogen [Mass/Vol]11.0 mg/dL 7.0-18.0[facility] HealthUrea nitrogen/Creatinine [Mass ratio] 12.6 mg/mgKettering HealthLaboratory - Hematology and Cell countsOrdered By: Sofia Marker on 42-99-9000Mjdmiiah granulocytes/100 WBC (Bld)0.3 %0.0-0.5FWayne HealthCare Main CampusLeukocytes [#/volume] corrected for nucleated erythrocytes in Blood by Automated counOrdered By: Sofia Marker on 95-32-8922PMO corrected for nucl RBC Auto (Bld) [#/Vol]7.4 10 3/uL4.0-11.0[facility] HealthLymphocytes Auto (Bld) [#/Vol] Ordered By: Sofia Marker on 91-32-5506Fvecgimpklw (Bld) [#/Vol]2.1 10 3/uL 1.2-3.8[facility] HealthLymphocytes/100 WBC Auto (Bld)Ordered By: Sofia Marker on 29-04-6559Wovhkurkwqh/100 WBC (Bld)28.8 %20.5-60.0 CentervilleH Auto (RBC) [Entitic mass]Ordered By: Sofia Marker on 76-90-2957ZQM (RBC) [Entitic mass]32.5 pg25.9-34.0[facility] HealthMCHC Auto (RBC) [Mass/Vol]Ordered By: Sofia Marker on 81-27-5635UCUZ (RBC) [Mass/Vol]34.8 g/dL29.9-35.2FWayne HealthCare Main CampusMCV Auto (RBC) [Entitic vol]Ordered By: Sofia Marker on 53-23-8522KZG (RBC) [Entitic vol]93.4 fL80.0-94.0[facility] HealthMonocytes Auto (Bld) [#/Vol]Ordered By: Sofia Marker on 27-67-4032Kiyzulgji (Bld) [#/Vol]0.4 10 3/uL0.3-0.8[facility] HealthMonocytes/100 WBC Auto (Bld)Ordered By: Sofia Marker on 83-45-3823Hmaygcsjw/100 WBC (Bld)5.6 % 1.7-12.0[facility] HealthNeutrophils Auto (Bld) [#/Vol]Ordered By: Sofia Marker on 16-37-7949Eegzkiqhftb (Bld) [#/Vol]4.7 10 3/uL1.4-6.5 [facility] HealthNeutrophils/100 WBC Auto (Bld)Ordered By: Sofia Marker on 20-03-8378Zcmskjitdxb/100 WBC (Bld)63.5 %43.0-75.0[facility]tering HealthNo Panel InformationOrdered By: Sofia Marker on 18-00-9715Vwdwngqoaym # (Auto)0.1 10 3/uL0.0-0.7FWayne HealthCare Main CampusImmature Granulocyte # (Auto)0.02 10 3/uL0.00-0.03[facility] HealthTroponin I High Lpqefaaxqhi51.3 pg/mL4.0-76.1FWayne HealthCare Main CampusComment on above:CUT-OFF POINTS HAVE BEEN ESTABLISHED BASED [...] (Bld) [Entitic vol]Ordered By: Sofia Marker on 65-13-2356Jwhvoegp mean volume (Bld) [Entitic vol]11.4 fL9.5-13.5FWayne HealthCare Main Campus Platelets Auto (Bld) [#/Vol]Ordered By: Sofia Marker on 08-25-9711Pougmqpyv (Bld) [#/Vol]246 10 3/pT785-597WmmmwryzhKettering HealthRBC Auto (Bld) [#/Vol]Ordered By: Sofia Marker on 79-56-9860VWF (Bld) [#/Vol]4.25 10 6/uLLow 4.70-6.10[facility] Health System West Campuserum or plasma albumin/globulin mass ratioOrdered By: Sofia Marker on 03-45-9751Dftuaiw/Globulin [Mass ratio]1.2 {ratio}[facility] System West Campuserum or plasma anion gap determination Ordered By: Sofia Marker on 92-00-2802Eyigr gap [Moles/Vol]12.6 mmol/L [facility]36on [id number] scheduled for 03/24/25 @ 10:30amNMarietta Memorial Hospital36LVM for pt to call clinic to schedule consult with Dr. Walker to discuss SCS placement. Imaging requested. Please transfer pt to pre reg after call. Please inform telegraphic typewriter operator when scheduled. igobubble reps will need notified.Normal [facility]field HospitalTelephoneon [phone] Shantel Melendez 1960 M Date Provider Department Center 02/13/2025 [facility] Second Fl No family history on fileNormalUniversity Tuscarawas HospitalActivated partial thromboplastin time (aPTT) in platelet poor plasma by coagulation a Ordered By: Sarina Ramsey on 81-30-3562jIRB Coag (PPP) [Time]24.2 s 22.3-36.2FWayne HealthCare Main CampusBasophils Auto (Bld) [#/Vol]Ordered By: Andrius Flowersraitis on 86-27-3760Bulbuhvnr (Bld) [#/Vol]0.0 10 3/uL0.0-0.1 [facility] HealthBasophils/100 WBC Auto (Bld)Ordered By: Andrius Gipaoraitis on 46-16-8511Plagjrqkp/100 WBC (Bld)0.2 %0.2-2.0[facility] HealthEosinophils/100 WBC Auto (Bld)Ordered By: Andrius Kristieraitis on 22-44-9638Cdgibmetcae/100 WBC (Bld)0.1 %Low0.9-7.0[facility] HealthErythrocyte distribution width Auto (RBC) [Ratio]Ordered By: Andrius Kristieraitis on 19-59-1810Xlgmwnyfzqr distribution width (RBC) [Ratio]14.1 % 11.0-15.0[facility] HealthGlomerular filtration rate (GFR) estimation in non- AmericanOrdered By: Sarina Ramsey on 01-27-2025 GFR/1.73 sq M.predicted among non-blacks MDRD (S/P/Bld) [Vol rate/Area] mL/min/{1.73_m2}>=60 mL/min/1.73m 2FWayne HealthCare Main CampusHematocrit Auto (Bld) [Volume fraction]Ordered By: Sarina Ramsey on 01-27-2025 Hematocrit (Bld) [Volume fraction]38.0 %Low42.0-54.0[facility] HealthHemoglobin [Mass/volume] in BloodOrdered By: Sarina Ramsey on 90-01-2469Kylexxktgk (Bld) [Mass/Vol]13.0 g/dLLow14.0-18.0[facility] HealthINR in Platelet poor plasma by Coagulation assayOrdered By: Sarina Ramsey on 22-58-9157YGB Coag (PPP) [Relative time]1.09 {INR} [facility] HealthComment on above:DESIRED INR:2.0-3.0 CONDITIONS NOT LISTED BELOW2.5-3.5 FOR PROSTHETIC HEART VALVE REPLACEMENT2.5-3.5 RECURRENT THROMBOSISLaboratory - Chemistry and Chemistry - challengeOrdered By: Sarina Ramsey on 59-50-0642Bhsntbl [Mass/Vol]9.2 mg/dL8.5-10.1FWayne HealthCare Main CampusChloride [Moles/Vol]106 mmol/T89-883CgcemeeisKettering HealthCO2 [Moles/Vol]28.7 mmol/L21.0-32.0[facility] Creatinine [Mass/Vol]0.81 mg/dL0.70-1.30[facility] GFR/1.73 sq M.predicted MDRD (S/P/Bld) [Vol rate/Area]mL/min/{1.73_m2}>=60 mL/min/1.73m 2FWayne HealthCare Main CampusGlucose [Mass/Vol]89 mg/bU01-330 [facility] HealthPotassium [Moles/Vol]3.7 mmol/L3.5-5.1FThe University of Toledo Medical Centerodium [Moles/Vol]138 mmol/M045-065BocltjvsoKettering HealthUrea nitrogen [Mass/Vol]17.0 mg/dL7.0-18.0[facility] HealthUrea nitrogen/Creatinine [Mass ratio]21.0 mg/mgKettering HealthLaboratory - Hematology and Cell countsOrdered By: Sarina Ramsey on 37-41-9487Pjlxhfjp granulocytes/100 WBC (Bld)0.2 %0.0-0.5FWayne HealthCare Main CampusLeukocytes [#/volume] corrected for nucleated erythrocytes in Blood by Automated counOrdered By: Andrius Giedraitis on 12-88-3302TUS corrected for nucl RBC Auto (Bld) [#/Vol]8.2 10 3/uL4.0-11.0 [facility] HealthLymphocytes Auto (Bld) [#/Vol]Ordered By: Andrius Giedraitis on 04-70-3968Lakebclwykd (Bld) [#/Vol]2.4 10 3/uL1.2-3.8 [facility] HealthLymphocytes/100 WBC Auto (Bld)Ordered By: Andrius Giedraitis on 13-46-9293Dciyzapikkm/100 WBC (Bld)29.3 %20.5-60.0 [facility] HealthMCH Auto (RBC) [Entitic mass]Ordered By: Andrius Giedraitis on 68-09-1334WNQ (RBC) [Entitic mass]32.1 pg25.9-34.0 [facility] HealthMCHC Auto (RBC) [Mass/Vol]Ordered By: Andrius Giedraitis on 03-86-0656PLWZ (RBC) [Mass/Vol]34.2 g/dL29.9-35.2FWayne HealthCare Main CampusMCV Auto (RBC) [Entitic vol]Ordered By: Andrius Giedraitis on 78-76-2961BVU (RBC) [Entitic vol]93.8 fL80.0-94.0Kettering HealthMonocytes Auto (Bld) [#/Vol]Ordered By: Andrius Giedraitis on 81-46-7155Kxoooyfdx (Bld) [#/Vol]0.4 10 3/uL0.3-0.8[facility]tering HealthMonocytes/100 WBC Auto (Bld)Ordered By: Andrius Giedraitis on 26-55-2219Xovjxdzsw/100 WBC (Bld)5.0 %1.7-12.0K[facility]tering HealthNeutrophils Auto (Bld) [#/Vol]Ordered By: Andrius Giedraitis on 86-73-1745Fmxtsfeayze (Bld) [#/Vol]5.4 10 3/uL1.4-6.5FWayne HealthCare Main CampusNeutrophils/100 WBC Auto (Bld)Ordered By: Andrius Giedraitis on 01-27-2025 Neutrophils/100 WBC (Bld)65.2 %43.0-75.0[facility]tering HealthNo Panel InformationOrdered By: Andrius Giedraitis on 58-25-4952Jolkqkxwmqf # (Auto)0.0 10 3/uL0.0-0.7FWayne HealthCare Main CampusImmature Granulocyte # (Auto)0.02 10 3/uL0.00-0.03[facility]tering HealthPlatelet mean volume Auto (Bld) [Entitic vol]Ordered By: Andrius Giedraitis on 46-20-8492Togbxjtv mean volume (Bld) [Entitic vol]11.4 fL9.5-13.5FWayne HealthCare Main Campus Platelets Auto (Bld) [#/Vol]Ordered By: Andrius Giedraitis on 01-27-2025 Platelets (Bld) [#/Vol]214 10 3/jI634-996OoeyegmuzKettering Health Prothrombin time (PT)Ordered By: Andrius Giedraitis on 22-58-1372UR Coag (PPP) [Time]11.5 s9.0-11.6FWayne HealthCare Main CampusRBC Auto (Bld) [#/Vol] Ordered By: Andrius Giedraitis on 00-43-9027QVG (Bld) [#/Vol]4.05 10 6/uLLow 4.70-6.10[facility] System West Campuserum or plasma anion gap determinationOrdered By: Andrius Giedraitis on 11-09-2192Tfmar gap [Moles/Vol] 7.0 mmol/LFWayne HealthCare Main CampusNo Panel Informationon 40-47-4979BLDR HealthcareNOUT HealthcareXR CERVICAL SPINE 2-3 VIEWSon 09-44-9673UP CERVICAL SPINE 2-3 VIEWSCervical spine. HISTORY: Cervical [...] AvailableX-ray report Ordered By: Yung Pozo on 89-72-8071Bkjku reportFIRAULTMAN [place] [address] XRay Report Signed Patient: Shantel Melendez MR#: [id number] : 1960 Acct:[id number] Age/Sex: 64 / M ADM Date: 5 Loc: XDSHC Room: Type: [facility] Attending Dr: Griselda Hastings DO Copies [...] D.OMaria R 2024 4:30 PM Dictation Location: [place] [address] Transcribed By: [facility] 11/24/24 1630 Dictated By: Yung Pozo Jr, DO 11/24/24 1630 Signed By: 11/24/24 1630 [facility] HealthXR chest 2V*on 91-83-9615NO chest 2V*[facility] Main [address] [address] XRay Report Signed Patient: Shantel Melendez MR#: [id number] : 1960 Acct:[id number] Age/Sex: 64 / M ADM Date: 11/24/24 Loc: [facility] Room: Type: [facility] Attending Dr: Griselda Hastings DO Copies [...] Jr., D.O. 2024 4:30 PM Dictation Location: [place] [address] Transcribed By: [facility] 11/24/24 1630 Dictated By: Yung Pozo Jr, DO 11/24/24 1630 Signed By: 11/24/24 1630[facility] Physician GroupInfluenza virus B Ag [Presence] in Upper respiratory specimen by Rapid immunoassayon 69-72-4675DZISY Ag IA.rapid Ql (Nph)Influenza virus B Ag [Presence] in Upper respiratory specimen by Rapid immunoassayKettering HealthFLUBV Ag IA.rapid Ql (Nph)Negative [facility] HealthNo Panel Informationon 04-35-1213Bainnpdqp Type A (Rapid)NegativeKettering HealthPO SARS CoV-2 Antigen NegativeKettering HealthNo Panel InformationOrdered By: Griselda Hastings on 24-12-7150Qmvqw Strep (POC)[facility] HealthRSV (POC) [facility] HealthCNOVSPon 81-19-4452UAUWWAKqdrm (SP) Office (HEMAS[place]) SHANTEL MELENDEZ ([id number]) 1960 M Date Time Provider Department 11/07/24 9:20 AM RACQUEL COLE During your visit today, we recorded the following information about you: Temperature Pulse Respiration Blood pressure 97.5 degrees 72/minute 16/minute 115/89 Weight Height 79.3 kg 1.706 m Racquel Cole MD 11/07/2024 11:09 AM Signed NAME: Shantel Melendez CLINIC NO.: [id number] DATE OF SERVICE: November 07, 2024 (Curtis) Some elements in this clinic note that are critical to medical decision making have been carefully reviewed and included from a prior clinic note dated: November 02, 2023 (Curtis) Referring Provider: Griselda Hastings, Additional Clinicians involved in Shantel Melendez's care: Dr Kimberly Nichole ENT, Dr. 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 Scans and labs in 1 year RTC [...] adenopathy is identified. 10/05/2021 - MRI Brain: [facility] There is T2 and [...] This may represent (more content not included)... NormalMercy Health Clermont Hospital Panel InformationOrdered By: Nathanael Arango on 11-28-6845Auofdrsaywxgk Pathology TestSee commentKettering HealthComment on above:See report. Scanned copy available in EMR.Pathology Request for Lab Corpon 49-65-5472Emkvudmyk Request for Lab CorpNormAdventHealth Altamonte Springs Physician GroupComment on above:Order Comment: GI SPECIMENResult Comment: See report. Scanned copy available in EMR. PERFORMED BY: [place] [address] PATHOLOGIST BROACH GRINDER EDUARDO HOLLINGSWORTH M.D.Performed By: #### PATH TO [facility] #### [place] [address] USABasophils Auto (Bld) [#/Vol]on 23-56-2675Smfeturlc (Bld) [#/Vol]Automated basophil count<0.11K[facility]tering HealthBasophils (Bld) [#/Vol]0.06 10*3/uL<0.11K[facility]tering HealthBasophils/100 WBC Auto (Bld)on 02-40-6764Xnniepbfq/100 WBC (Bld)Automated basophil %K[facility]tering HealthBasophils/100 WBC (Bld)1.0 %[facility]tering HealthBlood manual differential comment interpretation narrativeon 11-03-2024 Manual differential comment Curtis (Bld) [Interp]Blood manual differential comment interpretation narrativeKettering HealthManual differential comment Curtis (Bld) [Interp]AutoKettering HealthCBC W Auto Differential panel (Bld)on 86-30-1120Kkqkcjfud (Bld) [#/Vol]0.06 10*3/uLNINF Simon ClinicBasophils/100 WBC (Bld)1 %[facility]ermont HospitalDifferential cell count method Nom (Bld)AutoCleveland ClinicEosinophils (Bld) [#/Vol]0.16 10*3/uL NINFCleveland ClinicEosinophils/100 WBC (Bld)2.7 %[facility] Clermont HospitalErythrocyte distribution width (RBC) [Ratio]14.6 %11.5 - 15.0 %[facility] Clermont HospitalHematocrit (Bld) [Volume fraction]40 %39.0 - 51.0 %[facility] Clermont HospitalHemoglobin (Bld) [Mass/Vol]13.6 g/dL13.0 - 17.0 g/dLMercy Health Clermont HospitalImmature granulocytes (Bld) [#/Vol]NINFCleveland ClinicImmature granulocytes/100 WBC (Bld)0.2 %[facility] Clermont HospitalLymphocytes (Bld) [#/Vol]2.73 10*3/uLMercy Health Clermont HospitalLymphocytes/100 WBC (Bld)45.3 %[facility]st HospitalH (RBC) [Entitic mass]31.9 pg26.0 - 34.0 pg [facility] Hill[facility]st HospitalHC (RBC) [Mass/Vol]34 g/dL30.5 - 36.0 g/dLCleveland Clinic Hillcrest HospitalV (RBC) [Entitic vol]93.9 fL80.0 - 100.0 fLCleveland ClinicMonocytes (Bld) [#/Vol] 0.4 10*3/uLNINFMercy Health Clermont HospitalMonocytes/100 WBC (Bld)6.6 %[facility] Neutrophils (Bld) [#/Vol]2.67 10*3/uLMercy Health Clermont HospitalNeutrophils/100 WBC (Bld) 44.2 %[facility] Clermont HospitalNucleated RBC (Bld) [#/Vol]NINFCleveland ClinicNucleated RBC/100 WBC (Bld) [Ratio]0 %/100 WBCMercy Health Clermont HospitalPlatelet mean volume (Bld) [Entitic vol]11 fL9.0 - 12.7 fLCleveland ClinicPlatelets (Bld) [#/Vol]281 10*3/uLConcord ClinicRBC (Bld) [#/Vol]4.26 10*6/uL4.20 - 6.00 m/[facility] Medical CenterWBC (Bld) [#/Vol]6.03 10*3/Peoples HospitalBasophils (Bld) [#/Vol]0.06 10*3/uLNormal<0.11CEast [facility] on above: Order Comment: Specimen Type: BLOOD SPECIMEN Ordering Facility: [facility] Address: [address] [place], [place] [address]Performed By: #### 54111-0 #### [facility] CLIA [id number] [address] [place], [place] [address]Hydkqnxgo/100 WBC (Bld)1.0 %[facility] Comment on above:Order Comment: Specimen Type: BLOOD SPECIMEN Ordering Facility: [facility] Address: [address] [place], [place] [address]Performed By: #### 59264-4 #### [facility] CLIA [id number] [address] [place] [address] 66371Cngfcenmlcdk cell count method Nom (Bld)AutoNormalCEast [facility] Hospital on above:Order Comment: Specimen Type: BLOOD SPECIMEN Ordering Facility: [facility] Address: [address] [place], [place] [address]Performed By: #### 93371-2 #### [facility] CLIA [id number] [address] [place], [place] [address]Qhqfzdicxdc (Bld) [#/Vol]0.16 10*3/uLNormal<0.46[facility] on above:Order Comment: Specimen Type: BLOOD SPECIMEN Ordering Facility: [facility] Address: [address] [place], [place] [address]Performed By: #### 28049-9 #### [facility] CLIA [id number] [address] [place], [place] [address]Wtzbchhwchw/100 WBC (Bld)2.7 %NormalOhio Valley Surgical Hospital Comment on above:Order Comment: Specimen Type: BLOOD SPECIMEN Ordering Facility: [facility] Address: [address] [place], [place] [address]Performed By: #### 74023-6 #### [facility] CLIA [id number] [address] [place], [place] [address]Svvixnsopnr distribution width (RBC) [Ratio]14.6 %Normal 11.5-15.0[facility] on above:Order Comment: Specimen Type: BLOOD SPECIMEN Ordering Facility: [facility] Address: [address] [place], [place] [address]Performed By: #### 59415-9 #### [facility] CLIA [id number] [address] [place] [address]Rhknrscqty (Bld) [Volume fraction]40.0 %Dgcjjg88.0-51.0 [facility] on above:Order Comment: Specimen Type: BLOOD SPECIMEN Ordering Facility: [facility] Address: [address] [place], [place] [address]Performed By: #### 21874-3 #### [facility] CLIA [id number] [address] [place] [address]Kitaryvltd (Bld) [Mass/Vol]13.6 g/kLAnzglw82.0-17.0[facility] on above:Order Comment: Specimen Type: BLOOD SPECIMEN Ordering Facility: [facility] Address: [address] [place], [place] [address]Performed By: #### 56125-3 #### [facility] CLIA [id number] [address] [place] [address]Pwzjqkqb granulocytes (Bld) [#/Vol]10*3/uLNormal<0.10[facility] on above:Order Comment: Specimen Type: BLOOD SPECIMEN Ordering Facility: [facility] Address: [address] [place], [place] [address]Performed By: #### 78633-3 #### [facility] CLIA [id number] [address] [place] [address]996Erhlmgeo granulocytes/100 WBC (Bld)0.2 %NormalOhioHealth Mansfield Hospital on above:Order Comment: Specimen Type: BLOOD SPECIMEN Ordering Facility: [facility] Address: [address] [place], [place] [address]Performed By: #### 31322-2 #### [facility] CLIA [id number] [address] [place] [address]Detonfrdhxu (Bld) [#/Vol]2.73 10*3/uLNormal1.00-4.00[facility] on above:Order Comment: Specimen Type: BLOOD SPECIMEN Ordering Facility: [facility] Address: [address] [place], [place] [address]Performed By: #### 77067-8 #### [facility] CLIA [id number] [address] [place] [address]Prvbramdoyg/100 WBC (Bld)45.3 %NormalOhioHealth Mansfield Hospital on above:Order Comment: Specimen Type: BLOOD SPECIMEN Ordering Facility: [facility] Address: [address] [place], [place] [address]Performed By: #### 73676-6 #### [facility] CLIA [id number] [address] [place] [address] 66655BLX (RBC) [Entitic mass]31.9 cdWwiejp71.0-34.0[facility] on above:Order Comment: Specimen Type: BLOOD SPECIMEN Ordering Facility: [facility] Address: [address] [place], [place] [address]Performed By: #### 33379-5 #### [facility] CLIA [id number] [address] [place] [address] 55834OWBX (RBC) [Mass/Vol]34.0 g/aRNwjmxo79.5-36.0[facility] on above:Order Comment: Specimen Type: BLOOD SPECIMEN Ordering Facility: [facility] Address: [address] [place], [place] [address]Performed By: #### 34415-5 #### [facility] CLIA [id number] [address] [place], [place] [address]VEZ (RBC) [Entitic vol]93.9 bBXsaugd44.0-100.0[facility] on above:Order Comment: Specimen Type: BLOOD SPECIMEN Ordering Facility: [facility] Address: [address] [place], [place] [address]Performed By: #### 16198-3 #### [facility] CLIA [id number] [address] [place], [place] [address]Paswfpahh (Bld) [#/Vol]0.40 10*3/uLNormal<0.87[facility] on above:Order Comment: Specimen Type: BLOOD SPECIMEN Ordering Facility: [facility] Address: [address] [place], [place] [address]Performed By: #### 87460-4 #### [facility] CLIA [id number] [address] [place] [address] 00386Nkuvyrgrd/100 WBC (Bld)6.6 %NormalOhio Valley Surgical Hospital Comment on above:Order Comment: Specimen Type: BLOOD SPECIMEN Ordering Facility: [facility] Address: [address] [place], [place] [address]Performed By: #### 16687-0 #### [facility] CLIA [id number] [address] [place] [address] 464[address]Mcakoetculh (Bld) [#/Vol]2.67 10*3/uLNormal1.45-7.50[facility] on above:Order Comment: Specimen Type: BLOOD SPECIMEN Ordering Facility: [facility] Address: [address] [place], [place] [address]Performed By: #### 91915-5 #### [facility] CLIA [id number] [address] [place] [address] 20567Fzflaplxmbq/100 WBC (Bld)44.2 %NormalOhioHealth Mansfield Hospital on above:Order Comment: Specimen Type: BLOOD SPECIMEN Ordering Facility: [facility] Address: [address] [place], [place] [address]Performed By: #### 71151-9 #### [facility] CLIA [id number] [address] [place], [place] [address]Ppqiwvrru RBC (Bld) [#/Vol]10*3/uLNormal<0.01[facility] on above:Order Comment: Specimen Type: BLOOD SPECIMEN Ordering Facility: [facility] Address: [address] [place], [place] [address]Performed By: #### 04061-3 #### [facility] CLIA [id number] [address] [place], [place] [address]Vmhtcpovv RBC/100 WBC (Bld) [Ratio]0.0 /100 WBCNormalCEast [facility] Hospital on above:Order Comment: Specimen Type: BLOOD SPECIMEN Ordering Facility: [facility] Address: [address] [place], [place] [address]Performed By: #### 53509-8 #### [facility] CLIA [id number] [address] [place], [place] [address]Mqwguton mean volume (Bld) [Entitic vol]11.0 fLNormal9.0-12.7 [facility] on above:Order Comment: Specimen Type: BLOOD SPECIMEN Ordering Facility: [facility] Address: [address] [place], [place] [address]Performed By: #### 42899-1 #### [facility] CLIA [id number] [address] [place], [place] [address]Dwzmqqbnu (Bld) [#/Vol]281 10*3/iDYgqntb550-631BzwbmqbzaOhioHealth Mansfield Hospital on above:Order Comment: Specimen Type: BLOOD SPECIMEN Ordering Facility: [facility] Address: [address] [place], [place] [address]Performed By: #### 87451-9 #### [facility] CLIA [id number] [address] [place], [place] [address]FDF (Bld) [#/Vol]4.26 10*6/uLNormal4.20-6.00[facility] on above:Order Comment: Specimen Type: BLOOD SPECIMEN Ordering Facility: [facility] Address: [address] [place], [place] [address]Performed By: #### 17560-7 #### [facility] CLIA [id number] [address] [place], [place] [address]BZC (Bld) [#/Vol]6.03 10*3/uLNormal3.70-11.00[facility] on above:Order Comment: Specimen Type: BLOOD SPECIMEN Ordering Facility: [facility] Address: [address] [place], [place] [address]Performed By: #### 56231-8 #### [facility] CLIA [id number] [address] [place] [address] 47[address]MFNDjj 62-14-9880VFXEUwgkcsfol (HEMTSA) SHANTEL MELENDEZ ([id number]) 1960 M Date Time Provider Department 11/03/24 [...] [C76.0] Order(s):COMPREHENSIVE METABOLIC PANEL [SQCMP] Order #: [id number] FUTURE COMPLETE BLOOD COUNT AND DIFFERENTIAL [SQCBCDIF] Order #: [id number] FUTURE Prescriptions as of 11/03/2024 - amLODIPine [...] hours. Encounter Status:Closed by RACQUEL COLE on 11/03/24[facility]CT CHEST W IVCONon 05-28-3479HI CHEST W IVCON* * *Final Report* * * DATE OF EXAM: Nov 03 2024 8:41AM [facility] 0539 - CT CHEST W [...] any questions regarding this interpretation, please call [phone]. If you are unable to reach us at the number above, please feel free to contact [facility] eRadiology at [phone]. [id number] Valley Surgical HospitalCT Chest W contrast Tristin 32-76-8791SPNLRTYDOX: 1. No CT evidence of new metastatic [...] any questions regarding this interpretation, please call [phone]. If you are unable to reach us at the number above, please feel free to contact [facility] eRadiology at [phone].DIVISION OF RADIOLOGY* * *Final Report* * * DATE OF EXAM: Nov 03 2024 8:41AM [facility] 0539 - CT CHEST W [...] images: No additional findings. DIVISION OF RADIOLOGYProvider, [facility] [place] - 11/03/2024 * * *Final Report* * * DATE OF EXAM: Nov 03 2024 8:41AM [facility] 0539 - CT CHEST W [...] any questions regarding this interpretation, please call [phone]. If you are unable to reach us at the number above, please feel free to contact [facility] eRadiology at [phone]. [facility] HospitalCT NECK SOFT TISSUE W IVCONon 56-83-8866NH NECK SOFT TISSUE W IVCON* * *Final Report* * * DATE OF EXAM: Nov 03 2024 8:41AM [facility] 0013 - CT NECK SOFT [...] 1. No evidence of abnormal lymph nodes. [email or web address] Transcribe Date/Time: Nov 03 2024 8:53A Dictated by: BENJAMIN AL MD This examination was interpreted and the report reviewed and electronically signed by: BENJAMIN AL MD on Nov 03 2024 9:01AM EST Thank you for allowing us to participate in the care of your patient. Should there be any questions regarding this interpretation, please call [phone]. If you are unable to reach us at the number above, please feel free to contact [facility] eRadiology at [phone]. [id number] Valley Surgical HospitalCT Neck W contrast Tristin 56-83-7548YISFZSJHMY: Primary: Category 1. Expected post-treatment changes in the neck without evidence of recurrent disease in the primary site. Neck: Category 1. No evidence of abnormal lymph nodes. [email or web address] [email or web address] Transcribe Date/Time: Nov 03 2024 8:53A Dictated by: BENJAMIN AL MD This examination was interpreted and the report reviewed and electronically signed by: BENJAMIN AL MD on Nov 03 2024 9:01AM EST Thank you for allowing us to participate in the care of your patient. Should there be any questions regarding this interpretation, please call [phone]. If you are unable to reach us at the number above, please feel free to contact [facility] eRadiology at [phone].DIVISION OF RADIOLOGY* * *Final Report* * * DATE OF EXAM: Nov 03 2024 8:41AM [facility] 0013 - CT NECK SOFT [...] mass. Other: Not applicable. DIVISION OF RADIOLOGYProvider, [facility] [place] - 11/03/2024 * * *Final Report* * * DATE OF EXAM: Nov 03 2024 8:41AM [facility] 0013 - CT NECK SOFT [...] 1. No evidence of abnormal lymph nodes. [email or web address] Transcribe Date/Time: Nov 03 2024 8:53A Dictated by: BENJAMIN AL MD This examination was interpreted and the report reviewed and electronically signed by: BENJAMIN AL MD on Nov 03 2024 9:01AM EST Thank you for allowing us to participate in the care of your patient. Should there be any questions regarding this interpretation, please call [phone]. If you are unable to reach us at the number above, please feel free to contact [facility] at [phone]. [facility] [place] Neck W contrast IVOrdered By: Ccf Provider on 11-03-2024 [facility] HospitalEosinophils/100 WBC Auto (Bld)on 12-85-4972Mivsifpwkcf/100 WBC (Bld)Automated eosinophil %[facility] HealthEosinophils/100 WBC (Bld)2.7 %[facility] HealthErythrocyte distribution width Auto (RBC) [Ratio]on 69-89-5684Uwrdbcyeudd distribution width (RBC) [Ratio] Erythrocyte distribution width [Ratio] by Automated count11.5-15.0[facility] HealthErythrocyte distribution width (RBC) [Ratio]14.6 % 11.5-15.0[facility] HealthHematocrit Auto (Bld) [Volume fraction]on 01-35-3547Uuawnxtwni (Bld) [Volume fraction]Hematocrit [Volume Fraction] of Blood by Automated count39.0-51.0[facility] Hematocrit (Bld) [Volume fraction]40.0 %39.0-51.0[facility] HealthHemoglobin [Mass/volume] in Bloodon 80-65-8501Uemisziajp (Bld) [Mass/Vol] Hemoglobin [Mass/volume] in Blood13.0-17.0[facility] Hemoglobin (Bld) [Mass/Vol]13.6 g/dL13.0-17.0[facility] - Hematology and Cell countson 31-40-3317Uzplbimbitx (Bld) [#/Vol] 0.16 10*3/uL<0.46[facility] HealthImmature granulocytes/100 WBC (Bld)0.2 %[facility] HealthLeukocytes [#/volume] corrected for nucleated erythrocytes in Blood by Automated counon 51-75-4780LNG corrected for nucl RBC Auto (Bld) [#/Vol]Leukocytes [#/volume] corrected for nucleated erythrocytes in Blood by Automated coun3.70-11.00[facility] HealthWBC corrected for nucl RBC Auto (Bld) [#/Vol]6.03 k/uL3.70-11.00[facility] HealthLymphocytes Auto (Bld) [#/Vol]on 94-39-8235Yosdruohuva (Bld) [#/Vol]Lymphocytes [#/volume] in Blood by Automated count1.00-4.00 [facility] HealthLymphocytes (Bld) [#/Vol]2.73 10*3/uL1.00-4.00 [facility] HealthLymphocytes/100 WBC Auto (Bld)on 11-03-2024 Lymphocytes/100 WBC (Bld)Lymphocytes/100 leukocytes in Blood by Automated count [facility] HealthLymphocytes/100 WBC (Bld)45.3 %[facility] Auto (RBC) [Entitic mass]on 80-02-2428JMS (RBC) [Entitic mass]MCH [Entitic mass] by Automated count26.0-34.0[facility] (RBC) [Entitic mass]31.9 pg26.0-34.0[facility] HealthMCHC Auto (RBC) [Mass/Vol]on 24-34-9326KQBZ (RBC) [Mass/Vol]MCHC [Mass/volume] by Automated count30.5-36.0[facility] (RBC) [Mass/Vol]34.0 g/dL30.5-36.0[facility] Auto (RBC) [Entitic vol]on 72-74-6915YYX (RBC) [Entitic vol]MCV [Entitic volume] by Automated count80.0-100.0[facility] (RBC) [Entitic vol]93.9 fL80.0-100.0[facility] Health[facility] Auto (Bld) [#/Vol]on 38-31-5301Quhrzngoc (Bld) [#/Vol]Automated blood monocyte count<0.87 [facility] (Bld) [#/Vol]0.40 10*3/uL<0.87 [facility]/100 WBC Auto (Bld)on 11-03-2024 Monocytes/100 WBC (Bld)Automated monocyte %[facility] Monocytes/100 WBC (Bld)6.6 %[facility] HealthNeutrophils Auto (Bld) [#/Vol]on 63-30-2097Mesrxabcrhu (Bld) [#/Vol]Neutrophils [#/volume] in Blood by Automated count1.45-7.50[facility] Health[facility]rophils (Bld) [#/Vol]2.67 10*3/uL1.45-7.50[facility] Neutrophils/100 WBC Auto (Bld)on 77-63-8331Ilqhqulnskl/100 WBC (Bld)Automated neutrophil %[facility]Neutrophils/100 WBC (Bld)44.2 % [facility]No Panel Informationon 26-03-8165Cktowqiga Study observation (narrative)[facility] Granulocyte # (Auto)<0.03 k/uL<0.10[facility] HealthNucleated RBC Auto (Bld) [#/Vol]on 77-78-3951Tecegnaft RBC (Bld) [#/Vol]Nucleated erythrocytes [#/volume] in Blood by Automated count<0.01[facility]tering HealthNucleated RBC (Bld) [#/Vol]10*3/uL<0.01[facility]tering HealthNucleated erythrocytes [Presence] in Blood by Automated counton 18-87-6762Qbowwdwzt RBC Auto Ql (Bld) Nucleated erythrocytes [Presence] in Blood by Automated countKettering HealthNucleated RBC Auto Ql (Bld)0.0 /100{WBC}[facility] HealthPlatelet mean volume Auto (Bld) [Entitic vol]on 14-34-5780Hdzewvis mean volume (Bld) [Entitic vol]Platelet mean volume [Entitic volume] in Blood by Automated count9.0-12.7FWayne HealthCare Main CampusPlatelet mean volume (Bld) [Entitic vol]11.0 fL9.0-12.7FWayne HealthCare Main CampusPlatelets Auto (Bld) [#/Vol]on 12-03-1341Pbbbadqlu (Bld) [#/Vol]Platelets [#/volume] in Blood by Automated rdebm502-976ThakrktjjKettering HealthPlatelets (Bld) [#/Vol]281 10*3/fJ621-183DoyafawmnKettering HealthRBC Auto (Bld) [#/Vol] on 13-54-3622WNZ (Bld) [#/Vol]Erythrocytes [#/volume] in Blood by Automated count4.20-6.00[facility] HealthRBC (Bld) [#/Vol]4.26 10*6/uL 4.20-6.00[facility] HealthMR TRANSFER OF OUTSIDE FILMSon 09-63-2801HM TRANSFER OF OUTSIDE FILMSOutside images for comparison or treatment purposes, not interpreted by Radiologists.[facility] Hospitaltudy Interpretation of outside studyon 10-21-2024 Outside images for comparison or treatment purposes, not interpreted by Radiologists.IMAGINGX-ray reportOrdered By: Dorothy Eubanks on 08-50-0886Nriwl reportCLINTON MEM[place] [address] XRay Report Signed Patient: Shantel Melendez MR#: [id number] : 1960 Acct:[id number] Age/Sex: 63 / M ADM Date: 5 Loc: XD Room: Type: [facility] CLI Attending Dr: Solomon Narayanan PA-C Copies to: Solomon Narayanan PAC~ Ordering Provider: Solomon Naaryanan PAC Date of Service: 10/10/24 XR/XR cervical [...] Eubanks M.D. 10/10/2024 3:02 PM Dictation Location: [place] [address] Transcribed By: [facility] 10/10/24 1502 Dictated By: Dorothy Eubanks MD 10/10/24 1455 Signed By: 10/10/24 1502 [facility] Work Phone: XR cervical spine 2Von 13-13-7556UY cervical spine 2V [facility] [place] [address] [place] [address] XRay Report Signed Patient: Shantel Melendez MR#: [id number] : 1960 Acct:[id number] Age/Sex: 63 / M ADM Date: 10/10/24 Loc: XD Room: Type: [facility] Attending Dr: Solomon Narayanan PA-C Copies [...] Eubanks M.D. 10/10/2024 3:02 PM Dictation Location: [place] [address] Transcribed By: MARISA 10/10/24 1502 Dictated By: Dorothy Eubanks MD 10/10/24 1455 Signed By: 10/10/24 1502[facility] Phys[facility] GroupAlanine aminotransferase [Enzymatic activity/volume] in Serum or PlasmaOrdered By: Griselda Hastings on 66-18-7565UDJ [Catalytic activity/Vol]Alanine aminotransferase [Enzymatic activity/volume] in Serum or PlasmaLow7-52[facility] Albumin [Mass/volume] in Serum or Plasma by Bromocresol green (BCG) dye binding methoOrdered By: Griselda Hastings on 63-31-9726Kgwkhvh BCG dye [Mass/Vol]Albumin [Mass/volume] in Serum or Plasma by Bromocresol green (BCG) dye binding methoLow 3.5-5.7FWayne HealthCare Main CampusAlkaline phosphatase [Enzymatic activity/volume] in Serum or PlasmaOrdered By: Griselda Hastings on 72-51-7935LLL [Catalytic activity/Vol]Alkaline phosphatase [Enzymatic activity/volume] in Serum or Esusfr77-935VmloomcmoKettering HealthAspartate aminotransferase [Enzymatic activity/volume] in Serum or PlasmaOrdered By: Griselda Hastings on 64-36-0411MYG [Catalytic activity/Vol]Aspartate aminotransferase [Enzymatic activity/volume] in Serum or BjuwavRsx51-63GnptfsowbKettering Health Basophils Auto (Bld) [#/Vol]Ordered By: Griselda Hastings on 84-78-1853Vsaxyiokp (Bld) [#/Vol]Automated basophil count0.0-0.2FWayne HealthCare Main Campus Basophils/100 WBC Auto (Bld)Ordered By: Griselda Hastings on 56-29-6487Ijeyhdsru/100 WBC (Bld)Automated basophil %.[facility]tering HealthBilirubin.total [Mass/volume] in Serum or PlasmaOrdered By: Griselda Hastings on 94-51-9493Wxrlwehak [Mass/Vol]Bilirubin.total [Mass/volume] in Serum or Plasma0.3-1.0[facility] HealthCalcium [Mass/volume] in Serum or PlasmaOrdered By: Griselda Hastings on 77-38-8902Ejrpduu [Mass/Vol]Calcium [Mass/volume] in Serum or Plasma 8.6-10.3FWayne HealthCare Main CampusCarbon dioxide, total [Moles/volume] in Serum or PlasmaOrdered By: Griselda Hastings on 42-04-9299WN3 [Moles/Vol]Carbon dioxide, total [Moles/volume] in Serum or Sykqgt57.0-31.0[facility] HealthChloride [Moles/volume] in Serum or PlasmaOrdered By: Griselda Hastings on 42-01-2250Roymmhmd [Moles/Vol]Chloride [Moles/volume] in Serum or Plasma 98-107K[facility] HealthCholesterol [Mass/volume] in Serum or PlasmaOrdered By: Griselda Hastings 03-59-0881Rofyijwoyav [Mass/Vol]Cholesterol [Mass/volume] in Serum or CnwylnUtzs373-605OwhytxctqKettering Health Comment on above:Chol less than 200 mg/dl low riskChol 201-239 mg/dl borderline riskChol 240 mg/dl and greater high riskCholesterol in HDL [Mass/volume] in Serum or PlasmaOrdered By: Griselda Hastings on 79-98-3503Ewvtofbbhpo in HDL [Mass/Vol] Serum or plasma high density lipoprotein (HDL) cholesterol pxuxhmwnzbm30-73 [facility] HealthComment on above:HDL CHOL ATP-III CLASSIFICATION Cardiovascular RiskHDL > or equal to 60 mg/dL LOWHDL < 40 mg/dL HIGHCholesterol in LDL Calc [Mass/Vol]Ordered By: Griselda Hastings on 10-07-2024 Cholesterol in LDL [Mass/Vol]Cholesterol in LDL [Mass/volume] in Serum or Plasma by calculationHigh0-100K[facility]tering HealthComment on above:LDL ATP III CLASSIFICATIONLDL less than 100 mg/dL OptimalLDL 100-129 mg/dL Near or above gkqdeisNEC442-562 mg/dL Borderline highLDL 160-189 mg/dL HighLDL greater than 189 mg/dL Very highCholesterol in VLDL Calc [Mass/Vol]Ordered By: Griselda Hastings on 70-46-4451Vaihbcezxmx in VLDL [Mass/Vol]Cholesterol in VLDL [Mass/volume] in Serum or Plasma by [facility] Clostridioides difficile toxin B tcdB gene [Presence] in Stool by JER with probe deteOrdered By: Manisha Negron on 10-07-2024. difficile toxin B tcdB gene JER+probe Ql (Stl)Clostridioides difficile toxin B tcdB gene [Presence] in Stool by JER with probe deteNegatMercy HealthComment on above:Testing performed by RT-PCRClostridium Difficileon 32-46-4875Uoggusmypha DifficileNegativeNormalNegativeThe [facility] Physician GroupComment on above: Result Comment: Testing performed by RT-PCR PERFORMED BY: [place] [address] PATHOLOGIST BROACH GRINDER RAKEL LAZARO M.D.Performed By: #### CDT #### [place] [address] USAComplete Blood Count Auto Diffon 72-98-2271Hwjigbyho (Bld) [#/Vol]0.0 10*3/uLNormal0.0-0.2The [facility] Physician GroupComment on above: Result Comment: PERFORMED BY: [place] [address] PATHOLOGIST BROACH GRINDER RAKEL LAZARO M.D.Performed By: #### CBC, HEPATIC, BMP, LIPASE #### [place] [address] USABasophils/100 WBC (Bld)0.8 %Normal.The [facility] Physician GroupComment on above:Performed By: #### CBC, HEPATIC, BMP, LIPASE #### [place] [address] USAEosinophils (Bld) [#/Vol]0.0 10*3/uLNormal0.0-0.45The [facility] Physician GroupComment on above:Performed By: #### CBC, HEPATIC, BMP, LIPASE #### [facility] [address] [place] [address] USAEosinophils/100 WBC (Bld)0.8 %Normal.The [facility] Physician GroupComment on above:Performed By: #### CBC, HEPATIC, BMP, LIPASE #### [place] [address] USAErythrocyte distribution width (RBC) [Ratio]13.7 %Normal 12.0-14.8The [facility] Physician GroupComment on above:Performed By: #### CBC, HEPATIC, BMP, LIPASE #### [place] [address] USAHematocrit (Bld) [Volume fraction]36.6 %Low38.8-50.0The [facility] Physician GroupComment on above:Performed By: #### CBC, HEPATIC, BMP, LIPASE #### [place] [address] USAHemoglobin (Bld) [Mass/Vol]12.8 g/dLLow13.0-17.0The [facility] Physician GroupComment on above:Performed By: #### CBC, HEPATIC, BMP, LIPASE #### [place] [address] USALymphocytes (Bld) [#/Vol]1.7 10*3/uLNormal1.00-4.8The [facility] Physician GroupComment on above:Performed By: #### CBC, HEPATIC, BMP, LIPASE #### [place] [address] USALymphocytes/100 WBC (Bld)31.1 %Normal.The [facility] Physician GroupComment on above:Performed By: #### CBC, HEPATIC, BMP, LIPASE #### [place] [address] USAMCH (RBC) [Entitic mass]32.4 lvOlfoek72.5-35.2The [facility] Physician GroupComment on above:Performed By: #### CBC, HEPATIC, BMP, LIPASE #### [facility] [address] [place] [address] USAMCV (RBC) [Entitic vol]92.8 hJJcexxx14.5-101The [facility] Physician GroupComment on above:Performed By: #### CBC, HEPATIC, BMP, LIPASE #### [place] [address] USAMean Corpuscular HGB Conc34.9 g/gJAdghyq91.5-35.6The [facility] Physician GroupComment on above:Performed By: #### CBC, HEPATIC, BMP, LIPASE #### [place] [address] USAMonocytes (Bld) [#/Vol]0.3 10*3/uLNormal0.0-0.8The [facility] Physician GroupComment on above:Performed By: #### CBC, HEPATIC, BMP, LIPASE #### [place] [address] USAMonocytes/100 WBC (Bld)4.9 %Normal.The [facility] Physician GroupComment on above:Performed By: #### CBC, HEPATIC, BMP, LIPASE #### [place] [address] USANeutrophils (Bld) [#/Vol]3.4 10*3/uLNormal1.8-7.7The [facility] Physician GroupComment on above:Performed By: #### CBC, HEPATIC, BMP, LIPASE #### [place] [address] USANeutrophils/100 WBC (Bld)62.4 %Normal.The [facility] Physician GroupComment on above:Performed By: #### CBC, HEPATIC, BMP, LIPASE #### [place] [address] USANRBC%0.0 /100{WBC}Normal0-0.5The [facility] Comment on above:Performed By: #### CBC, HEPATIC, BMP, LIPASE #### [place] [address] USAPlatelet mean volume (Bld) [Entitic vol]8.8 fLNormal 6.6-10.1The [facility] Physician GroupComment on above:Performed By: #### CBC, HEPATIC, BMP, LIPASE #### [place] [address] USAPlatelets (Bld) [#/Vol]343 10*3/bJTqrnxq815-301Lwn [facility] Physician GroupComment on above:Performed By: #### CBC, HEPATIC, BMP, LIPASE #### [place] [address] USARBC (Bld) [#/Vol]3.94 10*6/uLNormal3.90-5.60The [facility] Physician GroupComment on above:Performed By: #### CBC, HEPATIC, BMP, LIPASE #### [place] [address] USAWBC (Bld) [#/Vol]5.5 10*3/uLNormal4.1-10.5The [facility] Physician GroupComment on above:Performed By: #### CBC, HEPATIC, BMP, LIPASE #### [place] [address] USAComprehensive Metabolic Panelon 75-20-6822Xpgsgqh [Mass/Vol]3.4 g/dLLow3.5-5.7The [facility] Physician GroupComment on above: Performed By: #### CBC, HEPATIC, BMP, LIPASE #### [place] [address] USAAlbumin/Globulin [Mass ratio]1.8 {ratio}NormalThe [facility] Physician GroupComment on above:Performed By: #### CBC, HEPATIC, BMP, LIPASE #### [place] [address] USAALP [Catalytic activity/Vol]62 U/LSwctum02-147Gxg [facility] Physician GroupComment on above:Performed By: #### CBC, HEPATIC, BMP, LIPASE #### [address] [place] [address] USAALT [Catalytic activity/Vol]6 U/LLow7-52The [facility] Physician GroupComment on above:Performed By: #### CBC, HEPATIC, BMP, LIPASE #### [facility] [address] [place] [address] USAAnion gap [Moles/Vol]9.7 mmol/LNormal6.0-15.0The [facility] Physician GroupComment on above:Performed By: #### CBC, HEPATIC, BMP, LIPASE #### [facility] [address] [place] [address] USAAST [Catalytic activity/Vol]8 U/XZok19-35Smj [facility] Physician GroupComment on above:Performed By: #### CBC, HEPATIC, BMP, LIPASE #### [place] [address] USABilirubin [Mass/Vol]0.6 mg/dLNormal0.3-1.0The [facility] Physician GroupComment on above:Performed By: #### CBC, HEPATIC, BMP, LIPASE #### [place] [address] USACalcium [Mass/Vol]9.3 mg/dLNormal8.6-10.3The [facility] Physician GroupComment on above:Performed By: #### CBC, HEPATIC, BMP, LIPASE #### [place] [address] USAChloride [Moles/Vol]103 mmol/QTgelde17-850Tou [facility] Physician GroupComment on above:Performed By: #### CBC, HEPATIC, BMP, LIPASE #### [place] [address] USACO2 [Moles/Vol]29.1 mmol/TVbrkxw14.0-31.0The [facility] Physician GroupComment on above:Performed By: #### CBC, HEPATIC, BMP, LIPASE #### [place] [address] USACreatinine [Mass/Vol]0.74 mg/dLNormal0.70-1.30The [facility] Physician GroupComment on above:Performed By: #### CBC, HEPATIC, BMP, LIPASE #### [facility] [address] [place] [address] USAGFR/1.73 sq M.predicted MDRD (S/P/Bld) [Vol rate/Area] mL/min/{1.73_m2}NormalThe [facility] Physician GroupComment on above:Performed By: #### CBC, HEPATIC, BMP, LIPASE #### [facility] [address] [place] [address] USAGlobulin (S) [Mass/Vol]1.9 g/dLNormalThe [facility] Physician GroupComment on above:Performed By: #### CBC, HEPATIC, BMP, LIPASE #### [facility] [address] [place] [address] USAGlucose [Mass/Vol]84 mg/tHWswipo47-643Jgs [facility] Physician GroupComment on above:Result Comment: Random Glucose Reference Range is dependent on time and content of last meal. Glucose of more than 200 mg/dL in a nonstressed, ambulatory subject supports the diagnosis of Diabetes Mellitus. ADA recommended reference rangePerformed By: #### CBC, HEPATIC, BMP, LIPASE #### [facility] [address] [place] [address] USAPotassium [Moles/Vol]4.8 mmol/LNormal3.5-5.1The [facility] Physician GroupComment on above:Performed By: #### CBC, HEPATIC, BMP, LIPASE #### [facility] [address] [place] [address] USAProtein [Mass/Vol]5.3 g/dLLow6.4-8.9The [facility] Physician GroupComment on above:Performed By: #### CBC, HEPATIC, BMP, LIPASE #### [facility] [address] [place] [address] USASodium [Moles/Vol]137 mmol/EHwnmes486-796Ggb [facility] Physician GroupComment on above:Performed By: #### CBC, HEPATIC, BMP, LIPASE #### [facility] [address] [place] [address] USAUrea nitrogen [Mass/Vol]7 mg/dLNormal7-25The [facility] Physician GroupComment on above:Performed By: #### CBC, HEPATIC, BMP, LIPASE #### [facility] [address] [place] [address] USACreatinine [Mass/volume] in Serum or PlasmaOrdered By: Griselda Hastings on 72-44-8867Oeyaxjyqjj [Mass/Vol]Creatinine [Mass/volume] in Serum or Plasma0.70-1.30[facility] HealthEosinophils Auto (Bld) [#/Vol]Ordered By: Griselda Hastings on 18-78-3356Gwiadsfyeik (Bld) [#/Vol]Automated eosinophil count0.0-0.45[facility] HealthEosinophils/100 WBC Auto (Bld)Ordered By: Griselda Hastings on 07-05-5648Dgirhequiwf/100 WBC (Bld)Automated eosinophil %.[facility] HealthErythrocyte distribution width Auto (RBC) [Ratio]Ordered By: Griselda Hastings on 49-06-5279Ywkyhwjxjxq distribution width (RBC) [Ratio]Erythrocyte distribution width [Ratio] by Automated count 12.0-14.8[facility] HealthGlobulin Calc (S) [Mass/Vol]Ordered By: Griselda Hastings on 66-65-2552Hrewjbxf (S) [Mass/Vol]Serum globulin measurement by calculation (mass/volume)[facility] HealthGlucose [Mass/volume] in Serum or PlasmaOrdered By: Griselda Hastings on 01-91-9376Nmuttuo [Mass/Vol]Glucose [Mass/volume] in Serum or Gqokyc05-362KhmhfixdwKettering HealthComment on above:ADA recommended reference rangeRandom Glucose Reference Range is dependent on time and content of last meal. Glucose of more than 200 mg/dL in a nonstressed, ambulatory subject supports the diagnosisof Diabetes Mellitus. Hematocrit Auto (Bld) [Volume fraction]Ordered By: Griselda Hastings on 10-07-2024 Hematocrit (Bld) [Volume fraction]Hematocrit [Volume Fraction] of Blood by Automated kpzvpWzv41.8-50.0[facility] HealthHemoglobin [Mass/volume] in BloodOrdered By: Griselda Hastings on 64-52-6906Isstsiffop (Bld) [Mass/Vol]Hemoglobin [Mass/volume] in UjcvuLri86.0-17.0[facility] HealthLeukocytes [#/volume] corrected for nucleated erythrocytes in Blood by Automated counOrdered By: Griselda Hastings on 94-81-1254XIR corrected for nucl RBC Auto (Bld) [#/Vol]Leukocytes [#/volume] corrected for nucleated erythrocytes in Blood by Automated coun4.1-10.5FWayne [facility] Lipid Panelon 31-08-0760Kazkfcrbggy [Mass/Vol]204 mg/xGHxur700-517Hlr [facility] Physician GroupComment on above:Result Comment: Chol less than 200 mg/dl low risk Chol 201-239 mg/dl borderline risk Chol 240 mg/dl and greater high riskPerformed By: #### CBC, HEPATIC, BMP, LIPASE #### [facility] [address] [place] [address] USACholesterol in HDL [Mass/Vol]35 mg/uOLgwcmb84-98Jwa [facility] Physician GroupComment on above:Result Comment: HDL CHOL ATP-III CLASSIFICATION Cardiovascular Risk HDL > or equal to 60 mg/dL LOW HDL < 40 mg/dL HIGHPerformed By: #### CBC, HEPATIC, BMP, LIPASE #### [facility] [address] [place] [address] USACholesterol.total/Cholesterol in HDL [Mass ratio]5.8 {ratio}Normal<5.0The [facility] Physician GroupComment on above:Performed By: #### CBC, HEPATIC, BMP, LIPASE #### [facility] [address] [place] [address] USALDL Cholesterol,Lutvfavluk040 mg/dLHigh0-100The [facility] Physician GroupComment on above:Result Comment: LDL ATP III CLASSIFICATION LDL less than 100 mg/dL Optimal LDL 100-129 mg/dL Near or above optimal LDL 130-159 mg/dL Borderline high LDL 160-189 mg/dL High LDL greater than 189 mg/dL Very highPerformed By: #### CBC, HEPATIC, BMP, LIPASE #### [facility] [address] [place] [address] USATriglyceride w/Tdyfwu702 mg/dLNormal0-149The [facility] Physician GroupComment on above:Result Comment: TRIG ATP III CLASSIFICATION TRIG less than 150 mg/dL Normal TRIG 150-199 mg/dL Borderline high TRIG 200-500 mg/dL High TRIG greater than 500 mg/dL Very high Standard traceable to the Center for Disease Conrtrol and Prevention (CDC) test method.Performed By: #### CBC, HEPATIC, BMP, LIPASE #### [facility] [address] [place] [address] USAVLDL EYMQIYFDJBT43 mg/dLNoFormerly [facility] Physician GroupComment on above:Performed By: #### CBC, HEPATIC, BMP, LIPASE #### [facility] [address] [place] [address] USALymphocytes Auto (Bld) [#/Vol]Ordered By: Griselda Hastings on 62-61-9216Zjikxlxbmlz (Bld) [#/Vol]Lymphocytes [#/volume] in Blood by Automated count1.00-4.8[facility] HealthLymphocytes/100 WBC Auto (Bld) Ordered By: Griselda Hastings on 61-92-0428Qtvoqlzrioz/100 WBC (Bld)Lymphocytes/100 leukocytes in Blood by Automated count.[place] Auto (RBC) [Entitic mass]Ordered By: Griselda Hastings on 80-14-7602NCH (RBC) [Entitic mass]MCH [Entitic mass] by Automated count27.5-35.2FUniversity Hospitals Geauga Medical CenterHC Auto (RBC) [Mass/Vol]Ordered By: Griselda Hastings on 52-96-9942JYYA (RBC) [Mass/Vol]MCHC [Mass/volume] by Automated count32.5-35.6FUniversity Hospitals Geauga Medical CenterV Auto (RBC) [Entitic vol]Ordered By: Griselda Hastings on 10-07-2024 MCV (RBC) [Entitic vol]MCV [Entitic volume] by Automated count83.5-101K[facility] HealthMonocytes Auto (Bld) [#/Vol]Ordered By: Griselda Hastings on 67-81-5459Aszxgezoy (Bld) [#/Vol]Automated blood monocyte count0.0-0.8[facility] HealthMonocytes/100 WBC Auto (Bld)Ordered By: Griselda Hastings on 49-01-7615Vvzkqixdq/100 WBC (Bld)Automated monocyte %.[facility] HealthNeutrophils Auto (Bld) [#/Vol]Ordered By: Griselda Hastings on 10-07-2024 Neutrophils (Bld) [#/Vol]Neutrophils [#/volume] in Blood by Automated count 1.8-7.7FWayne HealthCare Main CampusNeutrophils/100 WBC Auto (Bld)Ordered By: Griselda Hastings on 67-20-6594Hihcbnkrzsg/100 WBC (Bld)Automated neutrophil %. [facility] HealthNo Panel InformationOrdered By: Griselda Hastings on 31-85-9136Xrttzfzuc GFR (CKD-EPI)> 60.0 mL/MinKettering Health Pharmacy Creatinine Clearance (ChemN/[facility] HospitalNucleated erythrocytes [Presence] in Blood by Automated countOrdered By: Griselda Hastings on 11-13-2244Msdlprnzh RBC Auto Ql (Bld)Nucleated erythrocytes [Presence] in Blood by Automated count0-0.5FWayne HealthCare Main CampusPSA Screen (Yearly Only) on 91-06-2926JVH Screen (Yearly Only)0.670 ng/mLNormal0.000-4.000The [facility] Physician GroupComment on above:Result Comment: Serial tumor marker results determined by assays using different manufacturers or methods may not be comparable. [facility] sky line yarder and method: THELMA UNICEL DXI, CHEMILUMINESCENT IMMUNOASSAY. PERFORMED BY: [place] [address] PATHOLOGIST BROACH GRINDER RAKEL LAZARO M.D.Performed By: #### CBC, HEPATIC, BMP, LIPASE #### [facility] [address] [place] [address] USAPlatelet mean volume Auto (Bld) [Entitic vol]Ordered By: Griselda Hastings on 40-60-7968Rwppzlon mean volume (Bld) [Entitic vol]Platelet mean volume [Entitic volume] in Blood by Automated count6.6-10.1FWayne HealthCare Main CampusPlatelets Auto (Bld) [#/Vol]Ordered By: Griselda Hastings on 10-07-2024 Platelets (Bld) [#/Vol]Platelets [#/volume] in Blood by Automated -770 [facility] HealthPotassium [Moles/volume] in Serum or Plasma Ordered By: Griselda Hastings on 61-33-6649Kwwafvndf [Moles/Vol]Potassium [Moles/volume] in Serum or Plasma3.5-5.1FWayne [facility]Care [facility] Campus Prostate specific Ag [Mass/volume] in Serum or PlasmaOrdered By: Griselda Hastings on 67-14-1919Josijyos specific Ag [Mass/Vol]Prostate specific Ag [Mass/volume] in Serum or Plasma0.000-4.000K[facility] HealthComment on above: Serial tumor marker results determined by assays using different manufacturers or methods may not be comparable.[facility] sky line yarder and method:Clio DXI, CHEMILUMINESCENT IMMUNOASSAY.Protein [Mass/volume] in Serum or PlasmaOrdered By: Griselda Hastings on 95-31-8281Hbyawvb [Mass/Vol]Protein [Mass/volume] in Serum or PlasmaLow6.4-8.9K[facility] HealthRBC Auto (Bld) [#/Vol]Ordered By: Griselda Hastings on 45-00-3928CMK (Bld) [#/Vol] Erythrocytes [#/volume] in Blood by Automated count3.90-5.60[facility] West Campuserum or plasma albumin/globulin mass ratioOrdered By: Griselda Hastings on 00-40-2683Qckomge/Globulin [Mass ratio]Serum or plasma albumin/globulin mass ratioTrinity Health System West Campuserum or plasma anion gap determination Ordered By: Griselda Hastings on 39-86-1205Bceuj gap [Moles/Vol]Serum or plasma anion gap determination6.0-15.0[facility] West Campuserum or plasma total cholesterol/high density lipoprotein (HDL) cholesterol mass ratOrdered By: Griselda Hastings on 92-97-1621Eaqodbrjrrq.total/Cholesterol in HDL [Mass ratio]Serum or plasma total cholesterol/high density lipoprotein (HDL) cholesterol mass rat<5.0 [facility] West Campusodium [Moles/volume] in Serum or PlasmaOrdered By: Griselda Hastings on 64-44-0804Rodelv [Moles/Vol]Sodium [Moles/volume] in Serum or Ixdemt596-953IufslfdkdKettering HealthThyroid Stimulating Hormoneon 91-95-2656RGA Qn1.03 m[IU]/LNormal0.45-5.33The [facility] Physician GroupComment on above:Result Comment: PERFORMED BY: [facility] [address] [place] [address] PATHOLOGIST BROACH GRINDER RAKEL LAZARO M.D.Performed By: #### CBC, HEPATIC, BMP, LIPASE #### [facility] [address] [place] [id number] USAThyrotropin [Units/volume] in Serum or PlasmaOrdered By: Griselda Hastings on 44-40-3643KMG QnThyrotropin [Units/volume] in Serum or Plasma 0.45-5.33K[facility]tering HealthTriglyceride [Mass/volume] in Serum or PlasmaOrdered By: Griselda Hastings on 10-09-8824Elxrzmdyyqvo [Mass/Vol]Triglyceride [Mass/volume] in Serum or Plasma0-149K[facility]tering HealthComment on above:TRIG ATP III CLASSIFICATIONTRIG less than 150 mg/dL NormalTRIG 150-199 mg/dL Borderline highTRIG 200-500 mg/dL High TRIG greater than 500 mg/dL Very highStandard traceable to the Center for Disease Conrtrol and Prevention (CDC) test method.Urea nitrogen [Mass/volume] in Serum or PlasmaOrdered By: Griselda Hastings on 80-90-2633Xztz nitrogen [Mass/Vol]Urea nitrogen [Mass/volume] in Serum or Plasma7-Kettering HealthWBC Auto (Bld) [#/Vol]Ordered By: Griselda Hastings on 89-33-5728SHV (Bld) [#/Vol]Leukocytes [#/volume] in Blood by Automated count4.1-10.5FWayne HealthCare Main CampusAlanine aminotransferase [Enzymatic activity/volume] in Serum or PlasmaOrdered By: PROVIDER TEMArabella on 76-18-6761WHK [Catalytic activity/Vol]Alanine aminotransferase [Enzymatic activity/volume] in Serum or PlasmaKettering HealthAlbumin [Mass/volume] in Serum or Plasma by Bromocresol green (BCG) dye binding metho Ordered By: PROVIDER TEMP on 07-39-8429Pilvcnk BCG dye [Mass/Vol]Albumin [Mass/volume] in Serum or Plasma by Bromocresol green (BCG) dye binding metho 3.5-5.7FWayne HealthCare Main CampusAlkaline phosphatase [Enzymatic activity/volume] in Serum or PlasmaOrdered By: PROVIDER TEMP on 33-35-3269UOP [Catalytic activity/Vol]Alkaline phosphatase [Enzymatic activity/volume] in Serum or Kprbyk37-183DresgkekkKettering HealthAppearance of UrineOrdered By: Manisha Negron on 75-86-2285Qnxjcdlqkw (U)Urine appearanceCleKettering Health Main CampusAspartate aminotransferase [Enzymatic activity/volume] in Serum or PlasmaOrdered By: PROVIDER TEMP on 58-07-4590AVC [Catalytic activity/Vol]Aspartate aminotransferase [Enzymatic activity/volume] in Serum or BdmseuVgk72-80FqurqsnfkKettering HealthBacteria [Presence] in Urine by AutomatedOrdered By: Manisha Negron on 92-66-6162Fxhllhan Auto Ql (U)Bacteria [Presence] in Urine by AutomatedNone SeenKettering HealthBasic Metabolic Panelon 90-08-3143Ykrbd gap [Moles/Vol]8.5 mmol/LNormal6.0-15.0The [facility] Physician GroupComment on above:Performed By: #### CBC, HEPATIC, BMP, LIPASE #### [facility] [address] [place] [address] USACalcium [Mass/Vol]9.5 mg/dLNormal8.6-10.3The [facility]atham Physician GroupComment on above:Performed By: #### CBC, HEPATIC, BMP, LIPASE #### [facility] [address] [place] [id number] USAChloride [Moles/Vol]104 mmol/HAkkyzl50-561Jgn [facility] Physician GroupComment on above:Performed By: #### CBC, HEPATIC, BMP, LIPASE #### [facility] [address] [place] [id number] USACO2 [Moles/Vol]28.3 mmol/LJjhfwg88.0-31.0The [facility] Physician GroupComment on above:Performed By: #### CBC, HEPATIC, BMP, LIPASE #### [facility] [address] [place] [address] USACreatinine [Mass/Vol]0.82 mg/dLNormal0.70-1.30The [facility] Physician GroupComment on above:Performed By: #### CBC, HEPATIC, BMP, LIPASE #### [facility] [address] [place] [address] USACreatinine Clr Calc Gudtzosg20.52NormalThe [facility]atham Physician GroupComment on above:Performed By: #### CBC, HEPATIC, BMP, LIPASE #### [facility] [address] [place] [address] USAGFR/1.73 sq M.predicted MDRD (S/P/Bld) [Vol rate/Area] mL/min/{1.73_m2}NormalThe [facility]atham Physician GroupComment on above:Performed By: #### CBC, HEPATIC, BMP, LIPASE #### [facility] [address] [place] [address] USAGlucose [Mass/Vol]86 mg/yGEupbbe01-824Tef [facility] Physician GroupComment on above:Result Comment: Random Glucose Reference Range is dependent on time and content of last meal. Glucose of more than 200 mg/dL in a nonstressed, ambulatory subject supports the diagnosis of Diabetes Mellitus. ADA recommended reference rangePerformed By: #### CBC, HEPATIC, BMP, LIPASE #### [facility] [address] [place] [address] USAPotassium [Moles/Vol]4.8 mmol/LNormal3.5-5.1The [facility] Physician GroupComment on above:Performed By: #### CBC, HEPATIC, BMP, LIPASE #### [facility] [address] [place] [address] USASodium [Moles/Vol]136 mmol/DGnuogr354-463Usj [facility] Physician GroupComment on above:Performed By: #### CBC, HEPATIC, BMP, LIPASE #### [facility] [address] [place] [address] USAUrea nitrogen [Mass/Vol]9 mg/dLNormal7-25The [facility] Physician GroupComment on above:Performed By: #### CBC, HEPATIC, BMP, LIPASE #### [facility] [address] [place] [address] USABasophils Auto (Bld) [#/Vol]Ordered By: PROVIDER TEMP on 24-89-9913Stlvrwhyi (Bld) [#/Vol]Automated basophil count0.0-0.2FWayne HealthCare Main CampusBasophils/100 WBC Auto (Bld)Ordered By: PROVIDER TEMP on 71-73-3845Xtkvnqtvf/100 WBC (Bld)Automated basophil %.Kettering HealthBilirubin Test strip Ql (U)Ordered By: Manisha Negron on 10-06-2024 Bilirubin Ql (U)Bilirubin.total [Presence] in Urine by Test stripNegative Kettering HealthBilirubin.direct [Mass/volume] in Serum or PlasmaOrdered By: PROVIDER TEMP on 54-07-0390Dbqzkinvw.direct [Mass/Vol] Bilirubin.direct [Mass/volume] in Serum or Plasma0.03-0.18FWayne HealthCare Main CampusBilirubin.total [Mass/volume] in Serum or PlasmaOrdered By: PROVIDER TEMP on 76-12-4723Wsxvcsxif [Mass/Vol]Bilirubin.total [Mass/volume] in Serum or Plasma0.3-1.0K[facility]tering HealthCT abdomen pelvis w conon 06-58-5833ES abdomen pelvis w [place] [facility] [address] [place] [address] CT Scan Report Signed Patient: Shantel Melendez MR#: [id number] : 1960 Acct:[id number] Age/Sex: 63 / M ADM Date: 10/06/24 Loc: ER Room: Type: [facility] ER Attending Dr: Copies to: Manisha [...] Dorothy Eubanks M.D.10/06/2024 4:08 PM Dictation Location: [place] [address] Transcribed By: [facility] 10/06/24 8825 Dictated By: Dorothy Eubanks MD 10/06/24 1556 Signed By: 10/06/24 1608[facility] Physician GroupCT soft tissue neck w conon 11-08-8127ZM soft tissue neck w [place] [facility] [address] [place] [address] CT Scan Report Signed Patient: Shantel Melendez MR#: [id number] : 1960 Acct:[id number] Age/Sex: 63 / M ADM Date: 10/06/24 Loc: ER Room: Type: [facility] ER Attending Dr: Copies to: Manisha [...] Dorothy Eubanks M.D.10/06/2024 3:56 PM Dictation Location: [place] [address] Transcribed By: [facility] 10/06/24 1556 Dictated By: Dorothy Eubanks MD 10/06/24 155 Signed By: 10/06/24 1556[facility] Physician GroupCalcium [Mass/volume] in Serum or PlasmaOrdered By: PROVIDER TEMP on 79-12-3672Veqdjrb [Mass/Vol]Calcium [Mass/volume] in Serum or Plasma8.6-10.3FWayne HealthCare Main CampusCarbon dioxide, total [Moles/volume] in Serum or PlasmaOrdered By: PROVIDER TEMP on 29-47-0099NH9 [Moles/Vol]Carbon dioxide, total [Moles/volume] in Serum or Plasma 21.0-31.0K[facility]tering HealthChloride [Moles/volume] in Serum or PlasmaOrdered By: PROVIDER TEMP on 08-67-1861Azakrtee [Moles/Vol]Chloride [Moles/volume] in Serum or Vqwwia18-849EnuqlympqKettering HealthColor Auto (U)Ordered By: Manisha Negron on 28-57-7547Totmm (U)Color of Urine by Auto YellowKettering HealthComplete Blood Count Auto Diffon 75-70-1297Fawzbvqfr (Bld) [#/Vol]0.1 10*3/uLNormal0.0-0.2The [facility] Physician GroupComment on above:Result Comment: PERFORMED BY: [place] [address] PATHOLOGIST BROACH GRINDER RAKEL LAZARO M.D.Performed By: #### CBC, HEPATIC, BMP, LIPASE #### [facility] [address] [place] [address] USABasophils/100 WBC (Bld)1.1 %Normal.The [facility] Physician GroupComment on above:Performed By: #### CBC, HEPATIC, BMP, LIPASE #### [facility] [address] [place] [address] USAEosinophils (Bld) [#/Vol]0.1 10*3/uLNormal0.0-0.45The [facility] Physician GroupComment on above:Performed By: #### CBC, HEPATIC, BMP, LIPASE #### [facility] [address] [place] [address] USAEosinophils/100 WBC (Bld)0.9 %Normal.The [facility] Physician GroupComment on above:Performed By: #### CBC, HEPATIC, BMP, LIPASE #### [place] [address] USAErythrocyte distribution width (RBC) [Ratio]13.7 %Normal 12.0-14.8The [facility] Physician GroupComment on above:Performed By: #### CBC, HEPATIC, BMP, LIPASE #### [place] [address] USAHematocrit (Bld) [Volume fraction]37.0 %Low38.8-50.0The [facility] Physician GroupComment on above:Performed By: #### CBC, HEPATIC, BMP, LIPASE #### [place] [address] USAHemoglobin (Bld) [Mass/Vol]12.8 g/dLLow13.0-17.0The [facility] Physician GroupComment on above:Performed By: #### CBC, HEPATIC, BMP, LIPASE #### [place] [address] USALymphocytes (Bld) [#/Vol]2.0 10*3/uLNormal1.00-4.8The [facility] Physician GroupComment on above:Performed By: #### CBC, HEPATIC, BMP, LIPASE #### [place] [address] USALymphocytes/100 WBC (Bld)28.2 %Normal.The [facility] Physician GroupComment on above:Performed By: #### CBC, HEPATIC, BMP, LIPASE #### [place] [address] USAMCH (RBC) [Entitic mass]32.0 zoGfdrzy13.5-35.2The [facility] Physician GroupComment on above:Performed By: #### CBC, HEPATIC, BMP, LIPASE #### [place] [address] USAMCV (RBC) [Entitic vol]92.6 rJFenbah64.5-101The [facility] Physician GroupComment on above:Performed By: #### CBC, HEPATIC, BMP, LIPASE #### [place] [address] USAMean Corpuscular HGB Conc34.6 g/pCGvaddg59.5-35.6The [facility] Physician GroupComment on above:Performed By: #### CBC, HEPATIC, BMP, LIPASE #### [place] [address] USAMonocytes (Bld) [#/Vol]0.4 10*3/uLNormal0.0-0.8The [facility] Physician GroupComment on above:Performed By: #### CBC, HEPATIC, BMP, LIPASE #### [place] [address] USAMonocytes/100 WBC (Bld)17.04 %Normal0.00-20.00The [facility] Physician GroupComment on above:Performed By: #### CBC, HEPATIC, BMP, LIPASE #### [place] [address] USAMonocytes/100 WBC (Bld)5.4 %Normal.The [facility] Physician GroupComment on above:Performed By: #### CBC, HEPATIC, BMP, LIPASE #### [place] [address] USANeutrophils (Bld) [#/Vol]4.7 10*3/uLNormal1.8-7.7The [facility] Physician GroupComment on above:Performed By: #### CBC, HEPATIC, BMP, LIPASE #### [place] [address] USANeutrophils/100 WBC (Bld)64.4 %Normal.The [facility] Physician GroupComment on above:Performed By: #### CBC, HEPATIC, BMP, LIPASE #### [place] [address] USANRBC%0.1 /100{WBC}Normal0-0.5The [facility] Comment on above:Performed By: #### CBC, HEPATIC, BMP, LIPASE #### [place] [address] USAPlatelet mean volume (Bld) [Entitic vol]8.4 fLNormal 6.6-10.1The [facility] Physician GroupComment on above:Performed By: #### CBC, HEPATIC, BMP, LIPASE #### [facility] [address] [place] [address] USAPlatelets (Bld) [#/Vol]357 10*3/kEQptbjm988-724Igy [facility] Physician GroupComment on above:Performed By: #### CBC, HEPATIC, BMP, LIPASE #### [facility] [address] [place] [address] USARBC (Bld) [#/Vol]3.99 10*6/uLNormal3.90-5.60The [facility] Physician GroupComment on above:Performed By: #### CBC, HEPATIC, BMP, LIPASE #### [place] [address] USAWBC (Bld) [#/Vol]7.2 10*3/uLNormal4.1-10.5The [facility] Physician GroupComment on above:Performed By: #### CBC, HEPATIC, BMP, LIPASE #### [place] [address] USACreatinine [Mass/volume] in Serum or PlasmaOrdered By: PROVIDER TEMP on 00-00-1012Yiczcrgplk [Mass/Vol]Creatinine [Mass/volume] in Serum or Plasma0.70-1.30Kettering HealthDipstick and Microscopicon 70-03-8582Vsjeyhhuoi (U)ClearNormalClearThe [facility] Physician GroupComment on above:Order Comment: Name Collection Type:: Clean-Voided MidstreamPerformed By: #### CBC, HEPATIC, BMP, LIPASE #### [place] [address] USABacteria,UrineNone SeenNormalNone SeenThe [facility] Physician GroupComment on above:Order Comment: Name Collection Type:: Clean- Voided MidstreamPerformed By: #### CBC, HEPATIC, BMP, LIPASE #### [place] [address] USABilirubin,UrineNegativeNormalNegativeThe [facility] Physician GroupComment on above:Order Comment: Name Collection Type:: Clean- Voided MidstreamPerformed By: #### CBC, HEPATIC, BMP, LIPASE #### [place] [address] USAColor (U)YellowNormalYellowThe [facility] Comment on above:Order Comment: Name Collection Type:: Clean-Voided Midstream Performed By: #### CBC, HEPATIC, BMP, LIPASE #### [place] [address] USAGlucose Ql (U)NormalNormalNormalThMinidoka Memorial Hospital Physician GroupComment on above:Order Comment: Name Collection Type:: Clean-Voided MidstreamPerformed By: #### CBC, HEPATIC, BMP, LIPASE #### [place] [address] USAHyaline Casts,UrineNoneNormal0-8The [facility] Physician GroupComment on above:Order Comment: Name Collection Type:: Clean-Voided MidstreamPerformed By: #### CBC, HEPATIC, BMP, LIPASE #### [place] [address] USAKetones Ql (U)NegativeNormalNegativeBaptist Health [facility] Miami Physician GroupComment on above:Order Comment: Name Collection Type:: Clean- Voided MidstreamPerformed By: #### CBC, HEPATIC, BMP, LIPASE #### [place] [address] USALeukocyte esterase Test strip Ql (U)NegativeNormalNegative The [facility] Physician GroupComment on above:Order Comment: Name Collection Type:: Clean-Voided MidstreamPerformed By: #### CBC, HEPATIC, BMP, LIPASE #### [place] [address] USAMucus,UrineRareNormalBaptist Health [facility] Physician GroupComment on above:Order Comment: Name Collection Type:: Clean-Voided MidstreamResult Comment: PERFORMED BY: [place] [address] PATHOLOGIST BROACH GRINDER RAKEL LAZARO M.D.Performed By: #### CBC, HEPATIC, BMP, LIPASE #### [place] [address] USANitrite,UrineNegativeNormalNegativeThe [facility] Physician GroupComment on above:Order Comment: Name Collection Type:: Clean-Voided MidstreamPerformed By: #### CBC, HEPATIC, BMP, LIPASE #### [place] [address] USAOccult Blood,UrineTraceHighNegativeThe [facility] Physician GroupComment on above:Order Comment: Name Collection Type:: Clean-Voided MidstreamResult Comment: PERFORMED BY: [place] [address] PATHOLOGIST BROACH GRINDER RAKEL LAZARO M.D.Performed By: #### CBC, HEPATIC, BMP, LIPASE #### [place] [address] USApH (U)5.5 [pH]Normal5.0-9.0The [facility] Comment on above:Order Comment: Name Collection Type:: Clean-Voided Midstream Performed By: #### CBC, HEPATIC, BMP, LIPASE #### [place] [address] USAProtein,UrineNegativeNormalNegativeThe [facility] Physician GroupComment on above:Order Comment: Name Collection Type:: Clean-Voided MidstreamPerformed By: #### CBC, HEPATIC, BMP, LIPASE #### [place] [address] USARBC,Eamam6-2Hcdrwl8-2Udo [facility] Physician GroupComment on above:Order Comment: Name Collection Type:: Clean-Voided MidstreamPerformed By: #### CBC, HEPATIC, BMP, LIPASE #### [place] [address] USASpecificy Bertha,Urine>1.392Yacd9.001-1.030The [facility] Physician GroupComment on above:Order Comment: Name Collection Type:: Clean- Voided MidstreamPerformed By: #### CBC, HEPATIC, BMP, LIPASE #### [place] [address] USASquamous Epithelial Cell,Fqxuo0-4Gyzlkm9-0Eqy [facility] Physician GroupComment on above:Order Comment: Name Collection Type:: Clean- Voided MidstreamPerformed By: #### CBC, HEPATIC, BMP, LIPASE #### [facility] [address] [place] [address] USAUrobilinogen,UrineNormalNormalNormalThe [facility] Physician GroupComment on above:Order Comment: Name Collection Type:: Clean- Voided MidstreamPerformed By: #### CBC, HEPATIC, BMP, LIPASE #### [facility] [address] [place] [address] USAWBC,Nwtks2-7Pudnjt1-6Swo [facility] Physician GroupComment on above:Order Comment: Name Collection Type:: Clean-Voided MidstreamPerformed By: #### CBC, HEPATIC, BMP, LIPASE #### [facility] [address] [place] [address] USAECG 12 lead ECGon 13-91-6456UTU 12 lead ECGCLINTON [facility] [address] [place], [place] [address] Electrocardiograph Report Signed Patient: Shantel Melendez MR#: [id number] : 1960 Acct:[id number] Age/Sex: 63 / M ADM Date: 10/06/24 Loc: ER Room: Type: [facility] ER Attending Dr: Ordering Provider: [...] now present Confirmed by Duke Kaufman DO ([id number]) on 10/06/2024 7:36:01 PM Referred By: Electronically Signed By: Duke Kaufman DO Transcribed By: MUS Signed By Duke Kaufman DO 5 1935[facility] Physician GroupEosinophils Auto (Bld) [#/Vol]Ordered By: PROVIDER TEMP on 88-26-2648Rczitlbtovt (Bld) [#/Vol]Automated eosinophil count0.0-0.45K[facility]tering HealthEosinophils/100 WBC Auto (Bld) Ordered By: PROVIDER TEMP on 91-07-8329Mespkpxcfwz/100 WBC (Bld)Automated eosinophil %.K[facility]tering HealthEpithelial cells.squamous [#/area] in Urine sediment by Automated countOrdered By: Manisha Negron on 10-06-2024 Epithelial cells.squamous Auto (Urine sed) [#/Area]Epithelial cells.squamous [#/area] in Urine sediment by Automated count0-2FWayne HealthCare Main CampusErythrocyte distribution width Auto (RBC) [Ratio]Ordered By: PROVIDER TEMP on 91-43-1654Bhliussmksi distribution width (RBC) [Ratio]Erythrocyte distribution width [Ratio] by Automated count12.0-14.8K[facility]tering HealthErythrocytes [#/area] in Urine sediment by Automated countOrdered By: Manisha Negron on 48-99-4439XMD Auto (Urine sed) [#/Area]Erythrocytes [#/area] in Urine sediment by Automated count0-4FWayne HealthCare Main CampusGlobulin Calc (S) [Mass/Vol]Ordered By: PROVIDER TEMP on 86-85-8012Oepsvtex (S) [Mass/Vol]Serum globulin measurement by calculation (mass/volume)K[facility]tering HealthGlucose [Mass/volume] in Serum or PlasmaOrdered By: PROVIDER TEMP on 78-01-1105Cfpilkg [Mass/Vol]Glucose [Mass/volume] in Serum or Qkltmh22-882MqlamcmhxKettering HealthComment on above:ADA recommended reference rangeRandom Glucose Reference Range is dependent on time and content of last meal. Glucose of more than 200 mg/dL in a nonstressed, ambulatory subject supports the diagnosisof Diabetes Mellitus.Glucose [Mass/volume] in Urine by Test stripOrdered By: Manisha Negron on 06-32-1975Gqdnpur Test strip (U) [Mass/Vol]Glucose [Mass/volume] in Urine by Test stripNormalKettering HealthHematocrit Auto (Bld) [Volume fraction]Ordered By: PROVIDER TEMP on 74-22-0173Hmpambsbnh (Bld) [Volume fraction]Hematocrit [Volume Fraction] of Blood by Automated adlteZui95.8-50.0K[facility]tering HealthHemoglobin Test strip Ql (U)Ordered By: Manisha Negron on 10-06-2024 Hemoglobin Ql (U)Hemoglobin [Presence] in Urine by Test stripHighNegative Kettering HealthHemoglobin [Mass/volume] in BloodOrdered By: PROVIDER TEMP on 13-14-3461Fluhphcocb (Bld) [Mass/Vol]Hemoglobin [Mass/volume] in YhlzzDws88.0-17.0K[facility]tering HealthHepatic Panelon 10-06-2024 Albumin [Mass/Vol]3.6 g/dLNormal3.5-5.7The [facility] Physician GroupComment on above:Performed By: #### CBC, HEPATIC, BMP, LIPASE #### [facility] [address] [place] [address] USAAlbumin/Globulin [Mass ratio]1.4 {ratio}NormalThe [facility] Physician GroupComment on above:Performed By: #### CBC, HEPATIC, BMP, LIPASE #### [facility] [address] [place] [address] USAALP [Catalytic activity/Vol]63 U/HFafzbx35-761Dos [facility] Physician GroupComment on above:Performed By: #### CBC, HEPATIC, BMP, LIPASE #### [facility] [address] [place] [id number] USAALT [Catalytic activity/Vol]7 U/LNormal7-52The [facility] Physician GroupComment on above:Performed By: #### CBC, HEPATIC, BMP, LIPASE #### [facility] [address] [place] [address] USAAST [Catalytic activity/Vol]8 U/LJoq40-58Mzg [facility] Physician GroupComment on above:Performed By: #### CBC, HEPATIC, BMP, LIPASE #### [facility] [address] [place] [address] USABilirubin [Mass/Vol]0.6 mg/dLNormal0.3-1.0The [facility] Physician GroupComment on above:Performed By: #### CBC, HEPATIC, BMP, LIPASE #### [facility] [address] [place] [address] USABilirubin,Indirect0.5 mg/dLNormalThe [facility] Physician GroupComment on above:Performed By: #### CBC, HEPATIC, BMP, LIPASE #### [facility] [address] [place] [address] USABilirubin.indirect [Mass/Vol]0.10 mg/dLNormal0.03-0.18The [facility] Physician GroupComment on above:Performed By: #### CBC, HEPATIC, BMP, LIPASE #### [facility] [address] [place] [address] USAGlobulin (S) [Mass/Vol]2.5 g/dLNormalThe [facility] Physician GroupComment on above:Performed By: #### CBC, HEPATIC, BMP, LIPASE #### [place] [address] USAProtein [Mass/Vol]6.1 g/dLLow6.4-8.9The [facility] Physician GroupComment on above:Performed By: #### CBC, HEPATIC, BMP, LIPASE #### [place] [address] USAHyaline casts [#/area] in Urine sediment by Automated countOrdered By: Manisha Negron on 36-96-8493Bsxkvhc casts Auto (Urine sed) [#/Area]Hyaline casts [#/area] in Urine sediment by Automated count0-8Kettering HealthKetones Test strip Ql (U)Ordered By: Manisha Negron on 73-27-3845Yyqfsxh Ql (U)Ketones [Presence] in Urine by Test stripNegative [facility]tering HealthLeukocyte esterase [Presence] in Urine by Test stripOrdered By: Manisha Negron on 31-54-6607Fnnjyatxr esterase Test strip Ql (U)Leukocyte esterase [Presence] in Urine by Test stripNegativeKettering HealthLeukocytes [#/area] in Urine sediment by Automated count Ordered By: Manisha Negron on 52-00-5355MZG Auto (Urine sed) [#/Area]Leukocytes [#/area] in Urine sediment by Automated count0-4FWayne HealthCare Main CampusLeukocytes [#/volume] corrected for nucleated erythrocytes in Blood by Automated counOrdered By: PROVIDER TEMP on 80-32-3624WWJ corrected for nucl RBC Auto (Bld) [#/Vol]Leukocytes [#/volume] corrected for nucleated erythrocytes in Blood by Automated coun4.1-10.5FWayne HealthCare Main CampusLipaseon 02-25-9264Jgcvor [Catalytic activity/Vol]11.0 U/SUpytgk27.0-82.0The [facility] Physician GroupComment on above:Result Comment: PERFORMED BY: [facility] [address] [place] [address] PATHOLOGIST BROACH GRINDER RAKEL LAZARO M.D.Performed By: #### CBC, HEPATIC, BMP, LIPASE #### [facility] [address] [place] [address] USALipase [Enzymatic activity/volume] in Serum or Plasma Ordered By: PROVIDER TEMP on 05-26-7353Bzavbs [Catalytic activity/Vol]Lipase [Enzymatic activity/volume] in Serum or Rokanu47.0-82.0K[facility]tering HealthLymphocytes Auto (Bld) [#/Vol]Ordered By: PROVIDER TEMP on 92-67-4348Cxrurpivcyw (Bld) [#/Vol]Lymphocytes [#/volume] in Blood by Automated count1.00-4.8K[facility]tering HealthLymphocytes/100 WBC Auto (Bld) Ordered By: PROVIDER TEMP on 55-91-3204Jfkxohnkncg/100 WBC (Bld)Lymphocytes/100 leukocytes in Blood by Automated count.[facility] Auto (RBC) [Entitic mass]Ordered By: PROVIDER TEMP on 94-91-4235BKE (RBC) [Entitic mass]MCH [Entitic mass] by Automated count27.5-35.2FWayne HealthCare Main CampusMCHC Auto (RBC) [Mass/Vol]Ordered By: PROVIDER TEMP on 76-94-7557SWOJ (RBC) [Mass/Vol]MCHC [Mass/volume] by Automated count32.5-35.6FWayne HealthCare Main CampusMCV Auto (RBC) [Entitic vol]Ordered By: PROVIDER TEMP on 99-00-2307DNW (RBC) [Entitic vol]MCV [Entitic volume] by Automated count83.5-101 Kettering HealthMonocyte distribution width [Entitic volume] in Blood by AutomatedOrdered By: PROVIDER TEMP on 56-86-8625Uwxbzbsf distribution width Auto (Bld) [Entitic vol]Monocyte distribution width [Entitic volume] in Blood by Automated0.00-20.00K[facility]tering HealthMonocytes Auto (Bld) [#/Vol]Ordered By: PROVIDER TEMP on 34-18-2399Zrjgqnlqt (Bld) [#/Vol] Automated blood monocyte count0.0-0.8[facility] Monocytes/100 WBC Auto (Bld)Ordered By: PROVIDER TEMP on 44-11-5438Dbhuxaikj/100 WBC (Bld)Automated monocyte %.K[facility]tering HealthMucus [Presence] in Urine by AutomatedOrdered By: Manisha Negron on 74-63-5410Zqtgv Auto Ql (U) Mucus [Presence] in Urine by AutomatedKettering Health Neutrophils Auto (Bld) [#/Vol]Ordered By: PROVIDER TEMP on 20-21-1713Epoeeeifkik (Bld) [#/Vol]Neutrophils [#/volume] in Blood by Automated count1.8-7.7FWayne HealthCare Main CampusNeutrophils/100 WBC Auto (Bld)Ordered By: PROVIDER TEMP on 35-28-0485Qhhxtodbevt/100 WBC (Bld)Automated neutrophil %.[facility]ettering HealthNitrite Test strip Ql (U)Ordered By: Manisha Negron on 10-06-2024 Nitrite Ql (U)Nitrite [Presence] in Urine by Test stripNegativeKettering HealthNo Panel InformationOrdered By: PROVIDER TEMP on 57-14-1673Rhkzmymzd GFR (CKD-EPI)> 60.0 mL/MinKettering Health Pharmacy Creatinine Clearance (Chem91.52[facility] Nucleated erythrocytes [Presence] in Blood by Automated countOrdered By: PROVIDER TEMP on 04-52-4622Rbzjucjjs RBC Auto Ql (Bld)Nucleated erythrocytes [Presence] in Blood by Automated count0-0.5FWayne [facility] Platelet mean volume Auto (Bld) [Entitic vol]Ordered By: PROVIDER TEMP on 52-63-1917Rvxjmkht mean volume (Bld) [Entitic vol]Platelet mean volume [Entitic volume] in Blood by Automated count6.6-10.1FWayne [facility]Care [facility] Campus Platelets Auto (Bld) [#/Vol]Ordered By: PROVIDER TEMP on 74-62-3663Vzilgnutu (Bld) [#/Vol]Platelets [#/volume] in Blood by Automated bxeet661-175TrdcpnonmKettering HealthPotassium [Moles/volume] in Serum or PlasmaOrdered By: PROVIDER TEMP on 32-25-6075Yhqtukwsu [Moles/Vol]Potassium [Moles/volume] in Serum or Plasma3.5-5.1FWayne HealthCare Main CampusProtein Test strip (U) [Mass/Vol]Ordered By: Manisha Negron on 78-68-5260Wnsdhtd (U) [Mass/Vol]Protein [Mass/volume] in Urine by Test stripNegativeKettering Health Protein [Mass/volume] in Serum or PlasmaOrdered By: PROVIDER TEMP on 10-06-2024 Protein [Mass/Vol]Protein [Mass/volume] in Serum or PlasmaLow6.4-8.9[facility] HealthRBC Auto (Bld) [#/Vol]Ordered By: PROVIDER TEMP on 89-78-2915SHX (Bld) [#/Vol]Erythrocytes [#/volume] in Blood by Automated count 3.90-5.60[facility] West Campuserum or plasma albumin/globulin mass ratioOrdered By: PROVIDER TEMP on 39-92-4699Jybtvwu/Globulin [Mass ratio]Serum or plasma albumin/globulin mass ratioTrinity Health System West Campuserum or plasma anion gap determinationOrdered By: PROVIDER TEMP on 88-50-2616Veebl gap [Moles/Vol]Serum or plasma anion gap determination6.0-15.0[facility] West Campuserum or plasma non-glucuronidated bilirubin measurement (mass/volume)Ordered By: PROVIDER TEMP on 19-44-6791Evcjmxlfy.indirect [Mass/Vol]Serum or plasma non-glucuronidated bilirubin measurement (mass/volume) [facility] Campusodium [Moles/volume] in Serum or PlasmaOrdered By: PROVIDER TEMP on 86-32-3091Qbtwob [Moles/Vol]Sodium [Moles/volume] in Serum or Xtvkzf338-335FaazxglejTrinity Health System West Campuspecific gravity Test strip (U) [Rel density]Ordered By: Manisha Negron on 06-57-1960Zerigswy gravity (U) [Rel density]Specific gravity of Urine by Test stripHigh1.001-1.030[facility] HealthUrea nitrogen [Mass/volume] in Serum or PlasmaOrdered By: PROVIDER TEMP on 49-70-1858Fdid nitrogen [Mass/Vol]Urea nitrogen [Mass/volume] in Serum or Plasma7-25K[facility]tering HealthUrobilinogen Test strip (U) [Mass/Vol]Ordered By: Manisha Negron on 42-68-1506Vjwmfgulyzoa (U) [Mass/Vol]Urobilinogen [Mass/volume] in Urine by Test stripNormalKettering HealthWBC Auto (Bld) [#/Vol]Ordered By: PROVIDER TEMP on 43-11-6495SQN (Bld) [#/Vol]Leukocytes [#/volume] in Blood by Automated count 4.1-10.5FWayne HealthCare Main CampuspH Test strip (U)Ordered By: Manisha Negron on 26-43-4904fH (U)pH of Urine by Test strip5.0-9.0Kettering HealthB-Type Natriuretic Peptideon 99-48-1233Ojhwmqblusc peptide B (Bld) [Mass/Vol]43.0 pg/mLNormal5-100The [facility] Physician GroupComment on above: Result Comment: PERFORMED BY: [address] [address] PATHOLOGIST BROACH GRINDER RAKEL LAZARO M.D.Performed By: #### HS TROP #### [place] [id number] USABasic Metabolic Panelon 14-61-3399Mxkjr gap [Moles/Vol] 11.2 mmol/LNormal6.0-15.0The [facility] Physician GroupComment on above:Performed By: #### CBC, BMP, HS TROP, BNP #### [place] [address] USACalcium [Mass/Vol]9.3 mg/dLNormal8.6-10.3The [facility] Physician GroupComment on above:Performed By: #### CBC, BMP, HS TROP, BNP #### [place] [address] USAChloride [Moles/Vol]100 mmol/XBnqoiv46-016Idp [facility] Physician GroupComment on above:Performed By: #### CBC, BMP, HS TROP, BNP #### [place] [address] USACO2 [Moles/Vol]26.0 mmol/TSeuazd59.0-31.0The [facility] Physician GroupComment on above:Performed By: #### CBC, BMP, HS TROP, BNP #### [place] [address] USACreatinine [Mass/Vol]0.91 mg/dLNormal0.70-1.30The [facility] Physician GroupComment on above:Performed By: #### CBC, BMP, HS TROP, BNP #### [place] [address] USACreatinine Clr Calc Eoasonxj72.47NormalThe [facility]atham Physician GroupComment on above:Result Comment: PERFORMED BY: [place] [address] PATHOLOGIST BROACH GRINDER RAKEL LAZARO M.D.Performed By: #### CBC, BMP, HS TROP, BNP #### [place] [address] USAGFR/1.73 sq M.predicted MDRD (S/P/Bld) [Vol rate/Area] mL/min/{1.73_m2}NormalThe [facility]atham Physician GroupComment on above:Performed By: #### CBC, BMP, HS TROP, BNP #### [facility] [address] [place] [id number] USAGlucose [Mass/Vol]100 mg/kLOrcxjq09-760Qhr [facility] Physician GroupComment on above:Result Comment: Random Glucose Reference Range is dependent on time and content of last meal. Glucose of more than 200 mg/dL in a nonstressed, ambulatory subject supports the diagnosis of Diabetes Mellitus. ADA recommended reference rangePerformed By: #### CBC, BMP, HS TROP, BNP #### [facility] [address] [place] [address] USAPotassium [Moles/Vol]4.2 mmol/LNormal3.5-5.1The [facility] Physician GroupComment on above:Performed By: #### CBC, BMP, HS TROP, BNP #### [facility] [address] [place] [address] USASodium [Moles/Vol]133 mmol/KZoq811-817Gdf [facility] Physician GroupComment on above:Performed By: #### CBC, BMP, HS TROP, BNP #### [facility] [address] [place] [address] USAUrea nitrogen [Mass/Vol]18 mg/dLNormal7-25The [facility] Physician GroupComment on above:Performed By: #### CBC, BMP, HS TROP, BNP #### [facility] [address] [place] [address] USABasophils Auto (Bld) [#/Vol]Ordered By: Daisy Paul on 12-83-9711Rbnakujuh (Bld) [#/Vol]Automated basophil count0.0-0.2FWayne HealthCare Main CampusBasophils/100 WBC Auto (Bld)Ordered By: Daisy Paul on 45-17-3670Xyzsqkpwz/100 WBC (Bld)Automated basophil %.[facility] HealthBioFire Not Detectedon 05-68-2061FzwOnze Not DetectedNot detected NormalNot DetecteThe [facility] Physician GroupComment on above:Result Comment: This is a duplicate RP2.1 COVID (PCR) result to be used for statistical tracking purpose only. PERFORMED BY: [facility] [address] [place] [address] PATHOLOGIST BROACH GRINDER RAKEL LAZARO M.D.Performed By: #### HS TROP #### [facility] [address] [place] [address] USACOVID-19 Detected/Not DetectedOrdered By: Daisy Paul on 93-66-0554YUTK-CoV-2 (COVID-19) RNA JER+non-probe Ql (Nph)Not detectedNot DetectThe Surgical Hospital at SouthwoodsComment on above:This is a duplicate RP2.1 COVID (PCR) result to be used for statistical tracking purpose only. Calcium [Mass/volume] in Serum or PlasmaOrdered By: Daisy Paul on 09-20-2024 Calcium [Mass/Vol]Calcium [Mass/volume] in Serum or Plasma8.6-10.3FWayne HealthCare Main CampusCarbon dioxide, total [Moles/volume] in Serum or Plasma Ordered By: Daisy Paul on 82-53-9809YS3 [Moles/Vol]Carbon dioxide, total [Moles/volume] in Serum or Jjjljm98.0-31.0[facility] Chloride [Moles/volume] in Serum or PlasmaOrdered By: Daisy Paul on 32-38-3849Vixlnqwh [Moles/Vol]Chloride [Moles/volume] in Serum or Ixsxpd28-091 [facility] HealthComplete Blood Count Auto Diffon 09-20-2024 Basophils (Bld) [#/Vol]0.0 10*3/uLNormal0.0-0.2The [facility] Comment on above:Result Comment: PERFORMED BY: [facility] [address] [place] [address] PATHOLOGIST BROACH GRINDER RAKEL LAZARO M.D.Performed By: #### CBC, BMP, HS TROP, BNP #### [facility] [address] [place] [address] USABasophils/100 WBC (Bld)0.5 %Normal.The [facility] Physician GroupComment on above:Performed By: #### CBC, BMP, HS TROP, BNP #### [place] [address] USAEosinophils (Bld) [#/Vol]0.0 10*3/uLNormal0.0-0.45The [facility] Physician GroupComment on above:Performed By: #### CBC, BMP, HS TROP, BNP #### [place] [address] USAEosinophils/100 WBC (Bld)0.1 %Normal.The [facility] Physician GroupComment on above:Performed By: #### CBC, BMP, HS TROP, BNP #### [place] [address] USAErythrocyte distribution width (RBC) [Ratio]13.9 %Normal 12.0-14.8The [facility] Physician GroupComment on above:Performed By: #### CBC, BMP, HS TROP, BNP #### [place] [address] USAHematocrit (Bld) [Volume fraction]41.1 %Jkcimb22.8-50.0The [facility] Physician GroupComment on above:Performed By: #### CBC, BMP, HS TROP, BNP #### [place] [address] USAHemoglobin (Bld) [Mass/Vol]14.1 g/dVLiobqy18.0-17.0The [facility] Physician GroupComment on above:Performed By: #### CBC, BMP, HS TROP, BNP #### [place] [address] USALymphocytes (Bld) [#/Vol]1.1 10*3/uLNormal1.00-4.8The [facility] Physician GroupComment on above:Performed By: #### CBC, BMP, HS TROP, BNP #### [place] [address] USALymphocytes/100 WBC (Bld)11.5 %Normal.The [facility] Physician GroupComment on above:Performed By: #### CBC, BMP, HS TROP, BNP #### [address] [place] [address] USAMCH (RBC) [Entitic mass]32.1 jjFubwoe00.5-35.2The [facility] Physician GroupComment on above:Performed By: #### CBC, BMP, HS TROP, BNP #### [address] (RBC) [Entitic vol]93.6 gTJlyjga15.5-101The [facility] Physician GroupComment on above:Performed By: #### CBC, BMP, HS TROP, BNP #### [place] [address] USAMean Corpuscular HGB Conc34.3 g/qBCiktjw69.5-35.6The [facility] Physician GroupComment on above:Performed By: #### CBC, BMP, HS TROP, BNP #### [place] [address] USAMonocytes (Bld) [#/Vol]0.5 10*3/uLNormal0.0-0.8The [facility] Physician GroupComment on above:Performed By: #### CBC, BMP, HS TROP, BNP #### [place] [address] USAMonocytes/100 WBC (Bld)23.57 %High0.00-20.00The [facility] Physician GroupComment on above:Result Comment: For adults in ED, MDW > 20.0 may be associated with a higher risk of sepsis during the first 12 hrs of hospital admissionPerformed By: #### CBC, BMP, HS TROP, BNP #### [place] [address] USAMonocytes/100 WBC (Bld)5.4 %Normal.The [facility] Physician GroupComment on above:Performed By: #### CBC, BMP, HS TROP, BNP #### [place] [address] USANeutrophils (Bld) [#/Vol]8.1 10*3/uLHigh1.8-7.7The [facility] Physician GroupComment on above:Performed By: #### CBC, BMP, HS TROP, BNP #### [facility] [address] [place] [address] USANeutrophils/100 WBC (Bld)82.5 %Normal.The [facility] Physician GroupComment on above:Performed By: #### CBC, BMP, HS TROP, BNP #### [facility] [address] [place] [address] USANRBC%0.1 /100{WBC}Normal0-0.5The [facility] Comment on above:Performed By: #### CBC, BMP, HS TROP, BNP #### [facility] [address] [place] [address] USAPlatelet mean volume (Bld) [Entitic vol]8.9 fLNormal 6.6-10.1The [facility] Physician GroupComment on above:Performed By: #### CBC, BMP, HS TROP, BNP #### [place] [address] USAPlatelets (Bld) [#/Vol]215 10*3/iUXfamtx020-884Afi [facility] Physician GroupComment on above:Performed By: #### CBC, BMP, HS TROP, BNP #### [place] [address] USARBC (Bld) [#/Vol]4.39 10*6/uLNormal3.90-5.60The [facility] Physician GroupComment on above:Performed By: #### CBC, BMP, HS TROP, BNP #### [place] [address] USAWBC (Bld) [#/Vol]9.8 10*3/uLNormal4.1-10.5The [facility] Physician GroupComment on above:Performed By: #### CBC, BMP, HS TROP, BNP #### [place] [address] USACreatinine [Mass/volume] in Serum or PlasmaOrdered By: Daisy Paul on 05-80-7550Nuxmbydrpq [Mass/Vol]Creatinine [Mass/volume] in Serum or Plasma0.70-1.30[facility] HealthECG 12 lead ECGon 34-85-1978XCG 12 lead ECGCLINTON MEMORIAL [facility]PITAL Main [place] [address] [place] [address] Electrocardiograph Report Signed Patient: Shantel Melendez MR#: [id number] : 1960 Acct:[id number] Age/Sex: 63 / M ADM Date: 09/20/24 Loc: ER Room: Type: [facility] ER Attending Dr: Ordering Provider: [...] wave abnormality Confirmed by Daisy Paul MD ([id number]) on 09/20/2024 7:46:03 PM Referred By: Electronically Signed By: Daisy Paul MD Transcribed By: MUS Signed By Daisy Paul MD 11/09 [facility]antsPAM [facility] Physician GroupEosinophils Auto (Bld) [#/Vol] Ordered By: Daisy Paul on 69-79-6607Gzxwcvvpbqc (Bld) [#/Vol]Automated eosinophil count0.0-0.45[facility] HealthEosinophils/100 WBC Auto (Bld)Ordered By: Daisy Paul on 00-01-7557Poywuqpuzuu/100 WBC (Bld) Automated eosinophil %.[facility] HealthErythrocyte distribution width Auto (RBC) [Ratio]Ordered By: Daisy Paul on 19-95-3562Ldivwirwqjp distribution width (RBC) [Ratio]Erythrocyte distribution width [Ratio] by Automated count12.0-14.8[facility] HealthGlucose [Mass/volume] in Serum or PlasmaOrdered By: Daisy Paul on 35-25-1961Wewadqb [Mass/Vol] Glucose [Mass/volume] in Serum or Zgkybd01-645ZsfpodgnxKettering Health Comment on above:ADA recommended reference rangeRandom Glucose Reference Range is dependent on time and content of last meal. Glucose of more than 200 mg/dL in a nonstressed, ambulatory subject supports the diagnosisof Diabetes Mellitus. Hematocrit Auto (Bld) [Volume fraction]Ordered By: Daisy Paul on 09-20-2024 Hematocrit (Bld) [Volume fraction]Hematocrit [Volume Fraction] of Blood by Automated count38.8-50.0[facility] HealthHemoglobin [Mass/volume] in BloodOrdered By: Daisy Paul on 54-51-1414Tdyytbaock (Bld) [Mass/Vol]Hemoglobin [Mass/volume] in Blood13.0-17.0[facility] HealthLeukocytes [#/volume] corrected for nucleated erythrocytes in Blood by Automated counOrdered By: Daisy Paul on 71-48-0815UXT corrected for nucl RBC Auto (Bld) [#/Vol]Leukocytes [#/volume] corrected for nucleated erythrocytes in Blood by Automated coun4.1-10.5FWayne HealthCare Main CampusLymphocytes Auto (Bld) [#/Vol]Ordered By: Daisy Paul on 33-58-2951Xtardaqszqh (Bld) [#/Vol]Lymphocytes [#/volume] in Blood by Automated count1.00-4.8[facility] HealthLymphocytes/100 WBC Auto (Bld)Ordered By: Daisy Paul on 16-12-2692Twkwrigccsu/100 WBC (Bld)Lymphocytes/100 leukocytes in Blood by Automated count.[facility] HealthMCH Auto (RBC) [Entitic mass] Ordered By: Daisy Paul on 06-54-0005JOZ (RBC) [Entitic mass]MCH [Entitic mass] by Automated count27.5-35.2FWayne HealthCare Main CampusMCHC Auto (RBC) [Mass/Vol]Ordered By: Daisy Paul on 75-48-0319SJUI (RBC) [Mass/Vol] MCHC [Mass/volume] by Automated count32.5-35.6FW[facility] MCV Auto (RBC) [Entitic vol]Ordered By: Daisy Paul on 77-37-0446MUP (RBC) [Entitic vol]MCV [Entitic volume] by Automated count83.5-101Fire[facility] Regional Medical CenterMonocyte distribution width [Entitic volume] in Blood by Automated Ordered By: Daisy Paul on 48-28-6034Bqwqizzt distribution width Auto (Bld) [Entitic vol]Monocyte distribution width [Entitic volume] in Blood by Automated High0.00-20.00K[facility] HealthComment on above:For adults in ED, MDW > 20.0 may be associated with a higher risk of sepsis during the first 12 hrs of hospital admissionMonocytes Auto (Bld) [#/Vol]Ordered By: Daisy Paul on 52-18-2287Hpyuxtgpl (Bld) [#/Vol]Automated blood monocyte count 0.0-0.8[facility] HealthMonocytes/100 WBC Auto (Bld)Ordered By: Daisy Paul on 42-61-9747Opcswtqjb/100 WBC (Bld)Automated monocyte %. [facility] HealthNatriuretic peptide B [Mass/Vol]Ordered By: Daisy Paul on 71-38-8922Acbmcxaxvor peptide B (Bld) [Mass/Vol]BNP ser/plas 5-100K[facility] HealthNeutrophils Auto (Bld) [#/Vol]Ordered By: Daisy Paul on 52-10-0374Sedmyhdmjdv (Bld) [#/Vol]Neutrophils [#/volume] in Blood by Automated countHigh1.8-7.7FW[facility] Neutrophils/100 WBC Auto (Bld)Ordered By: Daisy Paul on 09-20-2024 Neutrophils/100 WBC (Bld)Automated neutrophil %.[facility] HealthNo Panel InformationOrdered By: Daisy Paul on 99-00-1475Gdqykhgwx GFR (CKD-EPI)> 60.0 mL/MinKettering HealthPharmacy Creatinine Clearance (Chem82.47K[facility] HealthNucleated erythrocytes [Presence] in Blood by Automated countOrdered By: Daisy Paul on 09-20-2024 Nucleated RBC Auto Ql (Bld)Nucleated erythrocytes [Presence] in Blood by Automated count0-0.5FWayne HealthCare Main CampusPlatelet mean volume Auto (Bld) [Entitic vol]Ordered By: Daisy Paul on 58-43-2468Kkqugxrc mean volume (Bld) [Entitic vol]Platelet mean volume [Entitic volume] in Blood by Automated count6.6-10.1FWayne HealthCare Main CampusPlatelets Auto (Bld) [#/Vol] Ordered By: Daisy Paul on 95-37-2847Mfffukvoe (Bld) [#/Vol]Platelets [#/volume] in Blood by Automated buqga890-070GtsszgqphKettering Health Potassium [Moles/volume] in Serum or PlasmaOrdered By: Daisy Paul on 76-89-0209Gjtewmqev [Moles/Vol]Potassium [Moles/volume] in Serum or Plasma 3.5-5.1FWayne HealthCare Main CampusRBC Auto (Bld) [#/Vol]Ordered By: Daisy Paul on 01-37-1842VTM (Bld) [#/Vol]Erythrocytes [#/volume] in Blood by Automated count3.90-5.60[facility] HealthRespiratory (Upper) Panel, PCRon 37-48-1889Mbpjhqbibdo (Upper) Panel, PCRAdenovirus Not detected Bordetella parapertussis [...] Influenza A H3 Blank Space PERFORMED BY: [place] [address] PATHOLOGIST BROACH GRINDER RAKEL LAZARO M.D.NormalThe [facility] Chatham Physician GroupComment on above: Performed By: #### HS TROP #### [address] [address] USARespiratory pathogens DNA and RNA panel - Nasopharynx by JER with non-probe detectionOrdered By: Daisy Paul on 18-22-8905Afzyxeinvom pathogens DNA and RNA panel JER+non-probe (Nph)Respiratory pathogens DNA and RNA panel - Nasopharynx by JER with non-probe detectionTrinity Health System West Campuserum or plasma anion gap determinationOrdered By: Daisy Paul on 57-11-4771Sxbsq gap [Moles/Vol]Serum or plasma anion gap determination6.0-15.0 [facility] West Campusodium [Moles/volume] in Serum or PlasmaOrdered By: Daisy Paul on 62-95-6818Nzlmxl [Moles/Vol]Sodium [Moles/volume] in Serum or NuwrfrDic854-980DlygzdidvKettering HealthTroponin I High Sensitivityon 36-43-4034Gapleipy I High Cigarvgzokk8Rfyqro0-08Kzl [facility] Physician GroupComment on above:Result Comment: The Troponin units of report have been changed to meet the Chest Pain Accreditation requirement, element EC5.M1l2. Troponin units are changed from pg/ml to ng/L. Also, the decimal is removed and results are in whole numbers. PERFORMED BY: [address] [address] PATHOLOGIST BROACH GRINDER RAKEL LAZARO M.D.Performed By: #### HS TROP #### [address] [address] USATroponin I High Fckrxuwivna2Dtcxhd8-63Ygn [facility] Physician GroupComment on above:Result Comment: The Troponin units of report have been changed to meet the Chest Pain Accreditation requirement, element EC5.M1l2. Troponin units are changed from pg/ml to ng/L. Also, the decimal is removed and results are in whole numbers. PERFORMED BY: [place] [address] PATHOLOGIST BROACH GRINDER RAKEL LAZARO M.D.Performed By: #### CBC, BMP, HS TROP, BNP #### [place] [address] USATroponin I.cardiac [Mass/volume] in Serum or Plasma by Detection limit <= 0.01 ng/Ordered By: Daisy Paul on 64-66-0611Nfasdbpr I.cardiac DL <= 0.01 ng/mL [Mass/Vol]Troponin I.cardiac [Mass/volume] in Serum or Plasma by Detection limit <= 0.01 ng/0-[facility] Comment on above:The Troponin units of report have been changed to meet the Chest Pain Accreditation requirement, element EC5.M1l2. Troponin units are changed from pg/ml to ng/L. Also, the decimal is removed and results are in whole numbers.Urea nitrogen [Mass/volume] in Serum or PlasmaOrdered By: Daisy Paul on 40-21-3929Iprx nitrogen [Mass/Vol]Urea nitrogen [Mass/volume] in Serum or Plasma01-09K[facility] HealthWBC Auto (Bld) [#/Vol] Ordered By: Daisy Paul on 74-16-7220VII (Bld) [#/Vol]Leukocytes [#/volume] in Blood by Automated count4.1-10.5FWayne HealthCare Main CampusX-ray report Ordered By: Gee Hutchins on 32-69-9093Jjfdi reportCLINTON MEMORIAL HOSPITAL Main [place] [id number] XRay Report Signed Patient: Shantel Melendez MR#: [id number] : 1960 Acct:[id number] Age/Sex: 63 / M ADM Date: 5 Loc: ER Room: Type: [facility] ER Attending Dr: Copies to: Daisy [...] Hutchins MD 09/20/241244 Signed By: 09/20/24 1247 [facility] Work Phone: XR chest 2V*on 28-07-1453GT chest 2V*[facility] [place] [address] XRay Report Signed Patient: Shantel Melendez MR#: [id number] : 1960 Acct:[id number] Age/Sex: 63 / M ADM Date: 09/20/24 Loc: ER Room: Type: [facility] ER Attending Dr: Copies to: Daisy [...] Hutchins MD 09/20/24 1245 Signed By: 09/20/24 1247TelmaFormerly [facility] Physician GroupUS ankle/arm indiceson 56-22-0778YZ ankle/arm indicesPremier Health Atrium [facility] Center Vascular [address] [place] [address] Ultrasound Report Signed Patient: Shantel Melendez MR#: [id number] : 1960 Acct:[id number] Age/Sex: 63 / M ADM Date: 09/11/24 Loc: [facility] Room: Type: [facility] Attending Dr: Ruddy Harvey MD Ordering [...] Filipe Hess M.D.09/16/2024 2:46 PM Dictation Location: [place] [address] Tech: Agueda Helm Transcribed By: MARISA 09/16/24 1446 Dictated By: Filipe Hess MD 09/16/24 1445 Signed By: 09/16/24 1446P[facility] Physician GroupX-ray reportOrdered By: Yung Pozo on 87-04-9356Cowci reportCLINTON MEMORIAL HOSPITAL Main [place] [address] [place] [address] XRay Report Signed Patient: Shantel Melendez MR#: [id number] : 1960 Acct:[id number] Age/Sex: 63 / M ADM Date: 2 [...] Pozo Jr., D.O.06/24/2024 8:08 PM Dictation Location: [place] [address] Transcribed By: [facility] 06/24/242007 Dictated By: Yung Pozo Jr, DO 06/24/242005 Signed By: 06/24/242007 [facility] HealthXR cervical spine LAT/FLX/EXTon 08-88-9893PX cervical spine LAT/FLX/EXTCLINTON MEMORIAL [place] [address] XRay Report Signed Patient: Shantel Melendez MR#: [id number] : 1960 Acct:[id number] Age/Sex: 63 / M ADM Date: 06/24/24 [...] Pozo Jr, DO 06/24/242005 Signed By: 06/24/[address] [place] [address] Physician GroupBasic metabolic 2000 panelon 10-55-7706Krmqk gap [Moles/Vol]14 mmol/L10 - 20 mmol/[facility] HospitalCalcium [Mass/Vol]9 mg/dL8.6 - 10.6 mg/dLUnLouis Stokes Cleveland VA Medical CenterChloride [Moles/Vol]103 mmol/L98 - 107 mmol/[facility] HospitalCO2 [Moles/Vol]26 mmol/L21 - 32 mmol/[facility] Creatinine [Mass/Vol]0.86 mg/dL0.50 - 1.30 mg/dLUnLouis Stokes Cleveland VA Medical CentereGFR- PINFUOur Lady of Mercy HospitalComment on above: Calculations of estimated GFR are performed using the 2020 CKD-EPI Study Refit equation without therace variable for the IDMS-Traceable creatinine methods. https://jasn.asnjournals.org/content/early//ASN.5420037199 Glucose [Mass/Vol]159 mg/nQBmzs30 - 99 mg/dLUnLouis Stokes Cleveland VA Medical Center Interpretation and review of laboratory resultsAbnoMercer County Community HospitalPotassium [Moles/Vol]4.5 mmol/L3.5 - 5.3 mmol/[facility] HospitalSodium [Moles/Vol]138 mmol/L136 - 145 mmol/[facility] HospitalUrea nitrogen [Mass/Vol]14 mg/dL6 - 23 mg/dLUnLouis Stokes Cleveland VA Medical CenterUnLouis Stokes Cleveland VA Medical CenterAnion gap [Moles/Vol]14 mmol/LNormal 10-20UnCleveland Clinic FoundationComment on above:Performed By: #### 04415-6 #### TITUS Mercado ([id number]) [facility] ([facility]) [address] [place], [place] [address]Jhfntuo [Mass/Vol]9.0 mg/dLNormal8.6-10.6[facility] HospitalComment on above:Performed By: #### 81563-4 #### TITUS Mercado ([id number]) [facility] ([facility]) [address] [place], [place] [address]Stxqpkik [Moles/Vol]103 mmol/MSadezh97-197NzeawgxnouCleveland Clinic FoundationComment on above:Performed By: #### 56512-5 #### TITUS Mercado ([id number]) [facility] ([facility]) [address] [place], [place] [address]BO2 [Moles/Vol]26 mmol/XRahbok20-93DwivesgfrwCleveland Clinic FoundationComment on above:Performed By: #### 88685-0 #### TITUS Mercado ([id number]) [facility] ([facility]) [address] [place], [place] [address]Qwcijgqptn [Mass/Vol]0.86 mg/dLNormal0.50-1.30UnCleveland Clinic FoundationComment on above:Performed By: #### 92364-3 #### TITUS Mercado ([id number]) [facility] ([facility]) [address] [place], [place] [address]OSU/1.73 sq M.predicted MDRD (S/P/Bld) [Vol rate/Area] mL/min/{1.73_m2}Normal>60UnCleveland Clinic FoundationComment on above:Result Comment: Calculations of estimated GFR are performed using the 2020 CKD-EPI Study Refit equation without the race variable for the IDMS-Traceable creatinine methods. https://jasn.asnjournals.org/content//ASN.8774140974Kbouenciw By: #### 15984-2 #### TITUS Mercado ([id number]) [facility] ([facility]) [address] [place], [place] [address]Gmsafjd [Mass/Vol]159 mg/oXNuhl34-40WsvwcanbrlCleveland Clinic FoundationComment on above:Performed By: #### 09273-7 #### TITUS Mercado ([id number]) [facility] ([facility]) [address] [place] [address] 24293Dpabrerzs [Moles/Vol]4.5 mmol/LNormal3.5-5.3UnCleveland Clinic FoundationComment on above:Performed By: #### 08070-2 #### TITUS Mercado ([id number]) [facility] ([facility]) [address] [place] [address] 10908Lsqtln [Moles/Vol]138 mmol/LShfahg344-185SvauhydyglCleveland Clinic FoundationComment on above:Performed By: #### 71816-9 #### TITUS Mercado ([id number]) [facility] ([facility]) [address] [place] [address] 383[address]Parj nitrogen [Mass/Vol]14 mg/dLNormal6-23UnCleveland Clinic FoundationComment on above:Performed By: #### 89040-7 #### TITUS Mercado ([id number]) [facility] ([facility]) [id number] [place] [address] 536[address]GWN panel Auto (Bld)on 90-44-1320Bnluttutdea distribution width (RBC) [Ratio]13.3 %11.5 - 14.5 %[facility] Hematocrit (Bld) [Volume fraction]38 %Low41.0 - 52.0 %[facility] HospitalHemoglobin (Bld) [Mass/Vol]12.9 g/dLLow13.5 - 17.5 g/dLUnLouis Stokes Cleveland VA Medical CenterInterpretation and review of laboratory resultsAbnormal [facility] CenterH (RBC) [Entitic mass]31.9 pg26.0 - 34.0 pg [facility] HospitalMCHC (RBC) [Mass/Vol]33.9 g/dL32.0 - 36.0 g/dL [facility] HospitalMCV (RBC) [Entitic vol]94 fL80 - 100 fL [facility] HospitalNucleated RBC/100 WBC (Bld) [Ratio]0 % [facility] HospitalPlatelets (Bld) [#/Vol]221 10*3/[facility] HospitalRBC (Bld) [#/Vol]4.05 10*6/[facility] Medical CenterWBC (Bld) [#/Vol]9.6 10*3/[facility] Hard[facility] HospitalUnLouis Stokes Cleveland VA Medical CenterErythrocyte distribution width (RBC) [Ratio]13.3 %Normal 11.5-14.5UnCleveland Clinic FoundationComment on above:Performed By: #### 71920-0 #### TITUS Mercado ([id number]) [facility] ([facility]) [address] [place] [address] 43775Asxhyvsvby (Bld) [Volume fraction]38.0 %Low41.0-52.0 [facility] HospitalComment on above:Performed By: #### 30958-7 #### TITUS Mercado (22298) [facility] ([facility]) [address] [place] [address] 65386Eyuirrpnqq (Bld) [Mass/Vol]12.9 g/dLLow13.5-17.5UnCleveland Clinic FoundationComment on above:Performed By: #### 62274-9 #### TITUS Mercado ([id number]) [facility] ([facility]) [address] [place] [address] 55933UDL (RBC) [Entitic mass]31.9 zgMdlqqg82.0-34.0UnCleveland Clinic FoundationComment on above:Performed By: #### 13734-6 #### TITUS Mercado (94897) [facility] ([facility]) [address] [place] [address] 88926IZPV (RBC) [Mass/Vol]33.9 g/uFBtewvk84.0-36.0UnCleveland Clinic FoundationComment on above:Performed By: #### 46985-1 #### TITUS Mercado (62585) [facility] ([facility]) [address] [place] [address] 02415BYV (RBC) [Entitic vol]94 kPMtuvkj29-592WcydduvwvmCleveland Clinic FoundationComment on above:Performed By: #### 89960-8 #### TITUS Mercado (13144) [facility] ([facility]) [address] [place] [address] 891[address]Ggckpnqwb RBC/100 WBC (Bld) [Ratio]0.0 /100 WBCsNormal0.0-0.0 [facility] HospitalComment on above:Performed By: #### 10346-0 #### TITUS Mercado ([id number]) [facility] ([facility]) [address] [place] [address] 47145Uoltruiiz (Bld) [#/Vol]221 x10*3/nFEodgjy284-202ClfuhvyobzCleveland Clinic FoundationComment on above:Performed By: #### 69234-0 #### TITUS Mercado ([id number]) [facility] ([facility]) [address] [place] [address] 96623BAV (Bld) [#/Vol]4.05 x10*6/uLLow4.50-5.90UnCleveland Clinic FoundationComment on above:Performed By: #### 86355-9 #### TITUS Mercado ([id number]) [facility] ([facility]) [address] [place] [address] 42215RTA (Bld) [#/Vol]9.6 x10*3/uLNormal4.4-11.3[facility] HospitalComment on above:Performed By: #### 23234-9 #### TITUS Mercado (97776) [facility] ([facility]) [address] [place] [address] 026[address]TN CERVICAL SPINE 2-3 VIEWSon 11-91-3184AF CERVICAL SPINE 2-3 VIEWSInterpreted By: Shubham Eubanks, STUDY: Cervical spine dated 04/10/2024. INDICATION: Signs/Symptoms:Post surgery COMPARISON: None. ACCESSION NUMBER(S): [id number] ORDERING CLINICIAN: DORETHA HARRIS TECHNIQUE: Two views [...] Shubham Eubanks 04/10/2024 10:05 AM Dictation workstation: [id number]. Mary's Medical Center, Ironton CampusComment on above:Order Comment: Please have patient uprightXR Cervical spine 2 or 3 Viewson 99-19-8071Jxphpzee and degenerative change as above without osseous injury evident. MACRO: None Signed by: Shubham Eubanks 04/10/2024 10:05 AM Dictation workstation: [id number] By: Shubham Eubanks, STUDY: Cervical spine dated 04/10/2024. INDICATION: Signs/Symptoms:Post surgery COMPARISON: None. ACCESSION NUMBER(S): [id number] ORDERING CLINICIAN: DORETHA HARRIS TECHNIQUE: Two views [...] INDICATION: Signs/Symptoms:Post surgery COMPARISON: None. ACCESSION NUMBER(S): [id number] ORDERING CLINICIAN: DORETHA HARRIS TECHNIQUE: Two views [...] Shubham Eubanks 04/10/2024 10:05 AM Dictation workstation: [id number] [facility] Work Phone: Radiology Study observation (narrative)[facility] Work Phone: XR Cervical spine 2 or 3 ViewsOrdered By: Shubham Eubanks on 75-46-8163NuqrehcmsjLouis Stokes Cleveland VA Medical Center Work Phone: Blood type and Indirect antibody screen panel (Bld)on 22-09-3412PYT group Nom (Bld)AUnEast [facility] group antibody screen QlNegativeUnLouis Stokes Cleveland VA Medical CenterD Ag Ql (Bld)Positive [facility] HospitalUnLouis Stokes Cleveland VA Medical CenterABO group Nom (Bld)ANoDelaware County HospitalComment on above:Order Comment: As needed for scheduled for aortic, liver, cardiac, or thoracic surgery OR hgb<7.5mg/dl and no active type and screen.Performed By: #### 94446-9 #### TITUS Mercado ([id number]) [facility] ([facility]) [address] [place], [place] [address]Blood group antibody screen QlNegativeNoDelaware County HospitalComment on above:Order Comment: As needed for scheduled for aortic, liver, cardiac, or thoracic surgery OR hgb<7.5mg/dl and no active type and screen.Performed By: #### 67992-4 #### TITUS Mercado ([id number]) [facility] ([facility]) [address] [place], [place] [address]D Ag Ql (Bld)PositiveSt. Mary's Medical Center, Ironton CampusComment on above:Order Comment: As needed for scheduled for aortic, liver, cardiac, or thoracic surgery OR hgb<7.5mg/dl and no active type and screen.Performed By: #### 35986-4 #### TITUS Mercado ([id number]) [facility] ([facility]) [address] [place] [address] 99796NF FLUORO IMAGES NO CHARGEon 98-21-4836XH FLUORO IMAGES NO CHARGEThese images are not reportable by radiology and will not be interpreted by Radiologists.NormalUnCleveland Clinic FoundationGas and Carbon monoxide and Electrolytes panel (BldA)on 56-42-2249Ktmud gap 4 (BldA) [Moles/Vol]8LowBrown Memorial HospitalBase excess Calc (Bld) [Moles/Vol]-1.9000 mmol/L-2.0 - 3.0 mmol/[facility] Calcium.ionized (BldA) [Moles/Vol]1.24 mmol/L1.10 - 1.33 mmol/[facility] HospitalChloride (BldA) [Moles/Vol]104 mmol/L98 - 107 mmol/L [facility] HospitalCO2 (Bld) [Partial pressure]46 mm[Hg]High [facility] HospitalGlucose [Mass/Vol]132 mg/sMWdvy72 - 99 mg/dL [facility] HospitalHCO3 (Bld) [Moles/Vol]24.3 mmol/L22.0 - 26.0 mmol/[facility] HospitalHematocrit Est (Bld) [Volume fraction]39 %Low41.0 - 52.0 %[facility] HospitalHemoglobin (Bld) [Mass/Vol] 12.9 g/dLLow13.5 - 17.5 g/dLBrown Memorial HospitalInhaled oxygen oycrfihxzxqxi37 %[facility] HospitalInterpretation and review of laboratory resultsAbnormalUniversSt. Mary's Warrick HospitalLactate (BldA) [Moles/Vol]0.7 mmol/L0.4 - 2.0 mmol/[facility] HospitalOxygen (Bld) [Partial pressure]156 mm[Hg][facility] Oxyhemoglobin (BldA) [Mass fraction]95 %94.0 - 98.0 %[facility] Memorial HospitalpH (Bld)7.33 [pH]Low7.38 - 7.42 [facility] Potassium (BldA) [Moles/Vol]4.5 mmol/L3.5 - 5.3 mmol/[facility] HospitalSodium (BldA) [Moles/Vol]132 mmol/AKxb973 - 145 mmol/[facility] HospitalUnLouis Stokes Cleveland VA Medical CenterAnion gap 4 (BldA) [Moles/Vol]8 mmo/ISne60-02OiwolpliffCleveland Clinic FoundationComment on above:Performed By: #### 16777-5 #### TITUS Mercado ([id number]) [facility] ([facility]) [address] [place] [address] 09516Vuyo excess Calc (Bld) [Moles/Vol]-1.9000 mmol/LNormal -2.0-3.0UnCleveland Clinic FoundationComment on above:Performed By: #### 44365-1 #### TITUS Mercado (64449) [facility] ([facility]) [address] [place] [address] 30642Dpjhprh.ionized (BldA) [Moles/Vol]1.24 mmol/LNormal1.10-1.33 [facility] HospitalComment on above:Performed By: #### 65681-3 #### TITUS Mercado ([id number]) [facility] ([facility]) [address] [place] [address] 53566Nghwroin (BldA) [Moles/Vol]104 mmol/YTchzmt25-410JkupyuaysaGreene Memorial HospitalComment on above:Performed By: #### 62699-1 #### TITUS Mercado ([id number]) [facility] ([facility]) [address] [place] [address] 62983IF3 (Bld) [Partial pressure]46 mm IaTenq79-71YbideuhjyfGreene Memorial HospitalComment on above:Performed By: #### 67595-4 #### TITUS Mercado ([id number]) [facility] ([facility]) [address] [place] [address] 46139Vfofbuv [Mass/Vol]132 mg/rFRxff78-97EetkehmcqhCleveland Clinic FoundationComment on above:Performed By: #### 80773-7 #### TITUS Mercado ([id number]) [facility] ([facility]) [address] [place] [address] 99641ZFU5 (Bld) [Moles/Vol]24.3 mmol/TOamxew16.0-26.0UnCleveland Clinic FoundationComment on above:Performed By: #### 74174-5 #### TITUS Mercado (29577) [facility] ([facility]) [address] [place] [address] 24871Fegedgpgbe Est (Bld) [Volume fraction]39.0 %Low41.0-52.0 [facility] HospitalComment on above:Performed By: #### 43505-7 #### TITUS Mercado (58062) [facility] ([facility]) [address] [place] [address] 23042Scqxkiyyjf (Bld) [Mass/Vol]12.9 g/dLLow13.5-17.5[facility] HospitalComment on above:Performed By: #### 26024-2 #### TITUS Mercado (75599) [facility] ([facility]) [address] [place] [address] 71744Uffuwhl oxygen ulciemnthhnqd64 %NormalUnCleveland Clinic FoundationComment on above:Performed By: #### 33801-2 #### TITUS Mercado (04706) [facility] ([facility]) [address] [place] [address] 63640Neciatn (BldA) [Moles/Vol]0.7 mmol/LNormal0.4-2.0[facility] HospitalComment on above:Performed By: #### 67270-3 #### TITUS Mercado ([id number]) [facility] ([facility]) [address] [place] [address] 00304Pryack (Bld) [Partial pressure]156 mm IkFqyg44-86YogguatxmwCleveland Clinic FoundationComment on above:Performed By: #### 96159-1 #### TITUS Mercado (89883) [facility] ([facility]) [address] [place], [place] [address]Tzamrqyiaisqe (BldA) [Mass fraction]95.0 %Cvflpr08.0-98.0 [facility] HospitalComment on above:Performed By: #### 76296-7 #### TITUS Mercado (74897) [facility] ([facility]) [address] [place] [address] 14083jA (Bld)7.33 [pH]Low7.38-7.42UnCleveland Clinic FoundationComment on above:Performed By: #### 15979-2 #### TITUS Mercado (80781) [facility] ([facility]) [address] [place] [address] 65181Gybsrtuko (BldA) [Moles/Vol]4.5 mmol/LNormal3.5-5.3[facility] HospitalComment on above:Performed By: #### 40758-3 #### TITUS Mercado ([id number]) [facility] ([facility]) [address] [place] [address] 44613Wechwm (BldA) [Moles/Vol]132 mmol/GOsy838-412XmnmtvuddaGreene Memorial HospitalComment on above:Performed By: #### 08652-8 #### TITUS Mercado (54428) [facility] ([facility]) [address] [place] [address] 91886PH tomography Unspecified body regionon 70-97-2164Hgvuc images are not reportable by radiology and will not be interpreted by Radiologists.IMAGINGCT TRANSFER OF OUTSIDE FILMSon 42-80-0378HP TRANSFER OF OUTSIDE FILMSOutside images for comparison or treatment purposes, not interpreted by Radiologists.NormalUnDoctors Hospitaltudy Interpretation of outside studyon 62-83-0523Yrwqulq images for comparison or treatment purposes, not interpreted by Radiologists.IMAGINGBlood type and Indirect antibody screen panel (Bld)on 10-07-0686TES group Nom (Bld)ANormalUniSouthview Medical CenterComment on above:Performed By: #### 88841-0 #### TITUS ORTIZTZSIMI Mercado (96231) [facility] ([facility]) [address] [place], [place] [address]Vcqes group antibody screen QlNegativeSt. Mary's Medical Center, [place]ont[place] CampusComment on above:Performed By: #### 19591-3 #### TITUSCAROLIN ELENASIMI L (46661) [facility] ([facility]) [address] [place], [place] [address]L Ag Ql (Bld)PositiveSt. Mary's Medical Center, [place] CampusComment on above:Performed By: #### 16383-9 #### TITUS ELENAER L (32806) [facility] ([facility]) [address] [place], [place] [address]MHLU BONE DENSITYon 33-14-4217JEWQ BONE DENSITYInterpreted By: Ruddy Lopez, STUDY: DEXA BONE DENSITY02/13/2024 10:50 am INDICATION: Signs/Symptoms:r/o osteoporosis, NEED AXIAL SKELETON IMAGES.. The patient is a 63 y/o year old M. ,M54.12 Radiculopathy, cervical region COMPARISON: None. ACCESSION NUMBER(S): [id number] ORDERING CLINICIAN: DORETHA HARRIS TECHNIQUE: DEXA BONE [...] Ruddy Lopez 12/29/2024 8:09 AM Dictation workstation: [id number] Skeletal system Views for bone densityon 92-66-9541Gznqm images are not reportable by radiology and will not be interpreted by Radiologists.IMAGINGXR CERVICAL SPINE COMPLETE 6+ VIEWSon 57-82-3435OB CERVICAL SPINE COMPLETE 6+ VIEWSInterpreted By: Romulo Medrano, STUDY: XR CERVICAL SPINE COMPLETE 6+ VIEWS; ; 02/13/2024 11:10 am INDICATION: Signs/Symptoms:r/o instability, assess alignment. ,M54.12 Radiculopathy, cervical region COMPARISON: None. ACCESSION NUMBER(S): [id number] ORDERING CLINICIAN: DORETHA HARRIS FINDINGS: C-spine, 6 [...] Romulo Medrano 02/19/2024 6:35 PM Dictation workstation: [id number]hComment on above:Order Comment: Please obtain with flexion and extensionXR CHEST 2 VIEWSon 71-00-4383MM CHEST 2 VIEWSInterpreted By: Romulo Medrano, STUDY: XR CHEST 2 VIEWS; 02/13/2024 11:10 am INDICATION: Signs/Symptoms:Preop surgery 02/[address] Steven MD. ,M54.12 Radiculopathy, cervical region,M81.0 Age-related osteoporosis without current pathological fracture COMPARISON: None. ACCESSION NUMBER(S): [id number] ORDERING CLINICIAN: DORETHA HARRIS FINDINGS: CARDIOMEDIASTINAL SILHOUETTE: Cardiomediastinal silhouette is normal in size and configuration. LUNGS: Lungs are clear. ABDOMEN: No remarkable upper abdominal findings. BONES: No acute osseous changes. IMPRESSION: 1. No evidence of acute cardiopulmonary process. MACRO: None Signed by: Romulo Medrano 02/19/2024 6:53 PM Dictation workstation: [id number] 12 leadOrdered By: Tobi Rico on 64-08-1000Wyidho Jjwc73KGZ [facility] Work Phone: [phone] Kecl84dsdgrksHgxhxwrtzxUniversity Hospitals [facility] Work Phone: [phone] Hwxens190 [facility] Work Phone: [phone] Onset90 [facility] Work Phone: [phone] Axivqwkg767 [facility] Work Phone: [phone] Cilyk246 [facility] Work Phone: [phone] Mocos37edehzAbeplvvieiKindred Healthcare Work Phone: [phone] Nwplaklv88 [facility] Work Phone: [phone] Hvejftoq241 [facility] Work Phone: [phone] Calculation(Bazett)415 [facility] Work Phone: [phone] Yfdoqhkwxg824 [facility] Work Phone: [phone] [place]-3degTriHealth Work Phone: [phone] Wzvz99auhhziuUdfgxlmbqaUniversity Hospitals [facility] Work Phone: [phone] Qlntut008 [facility] Work Phone: [phone] Zjob30UWZMamcfuloixMercer County Community Hospital Work Phone: [phone] Stokes [facility] Center Work Phone: ECG 12 leadon 31-07-4174Ayeni rhythm with 1st degree AV block Otherwise normal ECG When compared with ECG of 30-JAN-2019 19:26, heart rate decreased Confirmed by Tobi Rico ([id number]) on 02/12/2024 12:20:00 PMTobi Keller MD - 02/12/2024 Sinus rhythm with 1st degree AV block Otherwise normal ECG When compared with ECG of 30-JAN-2019 19:26, heart rate decreased Confirmed by Tobi Rico ([id number]) on 02/12/2024 12:20:00 PM [facility] Work Phone: basic metabolic 2000 panelon 41-40-1970Mmowx gap [Moles/Vol]13 mmol/PGqrcet70-65UtndnknrqiGreene Memorial Hospital Comment on above:Performed By: #### 69949-5 #### TITUS Mercado ([id number]) [facility] ([facility]) [address] [place], [place] [address]Swbskmd [Mass/Vol]9.6 mg/dLNormal8.6-10.6Greene Memorial HospitalComment on above:Performed By: #### 91228-1 #### TITUS Mercado ([id number]) [facility] ([facility]) [address] [place], [place] [address]Afbpcjln [Moles/Vol]104 mmol/GWkpova58-018AzqimxcplgCleveland Clinic FoundationComment on above:Performed By: #### 76379-8 #### TITUS Mercado (61756) [facility] ([facility]) [address] [place], [place] [address]HO8 [Moles/Vol]26 mmol/LErfshg57-52JhfpyoqtuvCleveland Clinic FoundationComment on above:Performed By: #### 42430-7 #### TITUS Mercado (74191) [facility] ([facility]) [address] [place], [place] [address]Sqqllebvlj [Mass/Vol]0.89 mg/dLNormal0.50-1.30UnCleveland Clinic FoundationComment on above:Performed By: #### 60213-8 #### TITUS Mercado (66740) [facility] ([facility]) [address] [place], [place] [address]BZM/1.73 sq M.predicted MDRD (S/P/Bld) [Vol rate/Area] mL/min/{1.73_m2}Normal>60UnCleveland Clinic FoundationComment on above:Result Comment: Calculations of estimated GFR are performed using the 2020 CKD-EPI Study Refit equation without the race variable for the IDMS-Traceable creatinine methods. https://jasn.asnjournals.org/content/early//ASN.4531943197Pnnivxbms By: #### 56663-8 #### TITUS Mercado ([id number]) [facility] ([facility]) [address] [place] [address] 70335Nnwqqzw [Mass/Vol]77 mg/jIUalrxl09-32TjuayojstbCleveland Clinic FoundationComment on above:Performed By: #### 73752-7 #### TITUS Mercado ([id number]) [facility] ([facility]) [id number] [place] [address] 52730Pmrxeedyr [Moles/Vol]4.6 mmol/LNormal3.5-5.3UnCleveland Clinic FoundationComment on above:Performed By: #### 13482-6 #### TITUS Mecrado ([id number]) [facility] ([facility]) [id number] [place] [address] 16339Deehwo [Moles/Vol]138 mmol/MAtwwsb659-528AgrclxcjnaCleveland Clinic FoundationComment on above:Performed By: #### 43503-5 #### TITUS Mercado ([id number]) [facility] ([facility]) [id number] [place] [address] 27171Faik nitrogen [Mass/Vol]9 mg/dLNormal6-23UnCleveland Clinic FoundationComment on above:Performed By: #### 89907-6 #### TITUS Mercado ([id number]) [facility] ([facility]) [id number] [place] [address] 78190Hwysr type and Indirect antibody screen panel (Bld)on 25-33-2231DLS group Nom (Bld)ANoDelaware County HospitalComment on above:Performed By: #### 92368-8 #### TITUS Mercado ([id number]) [facility] ([facility]) [id number] [place] [address] 42659Maztd group antibody screen QlNegativeSt. Mary's Medical Center, Ironton CampusComment on above:Performed By: #### 48664-8 #### TITUS Mercado ([id number]) [facility] ([facility]) [address] [place], [place] [address]J Ag Ql (Bld)PositiveSt. Mary's Medical Center, Ironton CampusComment on above:Performed By: #### 94100-1 #### TITUS Mercado ([id number]) [facility] ([facility]) [id number] [place] [address] 57485PLX W Auto Differential panel (Bld)on 18-05-7496Ufrkhotfp (Bld) [#/Vol]0.04 x10*3/uLNormal0.00-0.10[facility] HospitalComment on above:Performed By: #### 33438-6 #### TITUS Mercado ([id number]) [facility] ([facility]) [id number] [place] [address] 71223Rgvpzuwan/100 WBC (Bld)0.8 %Normal0.0-2.0Gre[facility] Memorial HospitalComment on above:Performed By: #### 99975-8 #### TITUS Mercado ([id number]) [facility] ([facility]) [id number] [place] [address] 11608Rbqizzrprjc (Bld) [#/Vol]0.05 x10*3/uLNormal0.00-0.70 [facility] HospitalComment on above:Performed By: #### 13997-9 #### TITUS Mercado ([id number]) [facility] ([facility]) [address] [place] [address] 98824Oeescqyvgaw/100 WBC (Bld)1.0 %Normal0.0-6.0UnCleveland Clinic FoundationComment on above:Performed By: #### 56607-0 #### TITUS Mercado ([id number]) [facility] ([facility]) [address] [place] [address] 18983Bvsalijklmj distribution width (RBC) [Ratio]13.2 %Normal 11.5-14.5UnCleveland Clinic FoundationComment on above:Performed By: #### 30040-8 #### TITUS Mercado ([id number]) [facility] ([facility]) [address] [place] [address] 62472Phxtxoltff (Bld) [Volume fraction]39.6 %Low41.0-52.0 [facility] HospitalComment on above:Performed By: #### 25110-3 #### TITUS Mercado ([id number]) [facility] ([facility]) [address] [place] [address] 97010Bmjkkofppx (Bld) [Mass/Vol]13.2 g/dLLow13.5-17.5UnCleveland Clinic FoundationComment on above:Performed By: #### 02340-8 #### TITUS Mercado ([id number]) [facility] ([facility]) [address] [place] [address] 23252Pwszvvgw granulocytes (Bld) [#/Vol]0.00 x10*3/uLNormal 0.00-0.70UnCleveland Clinic FoundationComment on above:Performed By: #### 08147-0 #### TITUS Mercado ([id number]) [facility] ([facility]) [address] [place] [address] 46964Itskkrnr granulocytes/100 WBC (Bld)0.0 %Normal0.0-0.9 [facility] Simon Medical CenterComment on above:Result Comment: Immature Granulocyte Count (IG) includes promyelocytes, myelocytes and metamyelocytes but does not include bands. Percent differential counts (%) should be interpreted in the context of the absolute cell counts (cells/UL). Performed By: #### 13943-4 #### TITUS Mercado (41994) [facility] ([facility]) [address] [place], [place] [address]Fjrsjkndmec (Bld) [#/Vol]1.74 x10*3/uLNormal1.20-4.80 [facility] HospitalComment on above:Performed By: #### 39037-6 #### TITUS Mercado (57860) [facility] ([facility]) [address] [place], [place] [address]Kvvbzjdvvgw/100 WBC (Bld)33.1 %Lovthd97.0-44.0Greene Memorial HospitalComment on above:Performed By: #### 87444-9 #### TITUS Mercado (05881) [facility] ([facility]) [address] [place], [place] [address]OXF (RBC) [Entitic mass]31.5 gpXlihhx80.0-34.0[facility] Memorial HospitalComment on above:Performed By: #### 74026-6 #### TITUS Mercado ([id number]) [facility] ([facility]) [address] [place], [place] [address]MIBH (RBC) [Mass/Vol]33.3 g/kPIqivhb63.0-36.0Greene Memorial HospitalComment on above:Performed By: #### 27821-9 #### TITUS Mercado ([id number]) [facility] ([facility]) [address] [place], [place] [address]VDH (RBC) [Entitic vol]95 aRSrfrkd90-448GkxspqziqvCleveland Clinic FoundationComment on above:Performed By: #### 34453-4 #### TITUS Mercado ([id number]) [facility] ([facility]) [address] [place], [place] [address]Nfzuwicjo (Bld) [#/Vol]0.30 x10*3/uLNormal0.10-1.00UnCleveland Clinic FoundationComment on above:Performed By: #### 69980-2 #### TITUS Mercado (69835) [facility] ([facility]) [id number] [place] [address] 69303Wixiwunoq/100 WBC (Bld)5.7 %Normal2.0-10.0UnCleveland Clinic FoundationComment on above:Performed By: #### 11325-1 #### TITUS Mercado (11472) [facility] ([facility]) [id number] [place] [address] 51862Cndjptxhokc (Bld) [#/Vol]3.13 x10*3/uLNormal1.20-7.70 [facility] HospitalComment on above:Result Comment: Percent differential counts (%) should be interpreted in the context of the absolute cell counts (cells/uL).Performed By: #### 25022-4 #### TITUS Mercado (07973) [facility] ([facility]) [id number] [place] [address] 49309Wtzoefoaugl/100 WBC (Bld)59.4 %Vgsgdw53.0-80.0UnCleveland Clinic FoundationComment on above:Performed By: #### 44812-9 #### TITUS Mercado ([id number]) [facility] ([facility]) [address] [place], [place] [address]Lzvqtfbla RBC/100 WBC (Bld) [Ratio]0.0 /100 WBCsNormal0.0-0.0 [facility] HospitalComment on above:Performed By: #### 43803-5 #### TITSU Mercado ([id number]) [facility] ([facility]) [address] [place], [place] [address]Zljinsiev (Bld) [#/Vol]271 x10*3/bQMabxwz481-802NwgpsddolfCleveland Clinic FoundationComment on above:Performed By: #### 59036-9 #### TITUS Mercado (45094) [facility] ([facility]) [address] [place], [place] [address]UIG (Bld) [#/Vol]4.19 x10*6/uLLow4.50-5.90Greene Memorial HospitalComment on above:Performed By: #### 07740-6 #### TITUS Mercado ([id number]) [facility] ([facility]) [address] [place], [place] [address]BWS (Bld) [#/Vol]5.3 x10*3/uLNormal4.4-11.3Greene Memorial HospitalComment on above:Performed By: #### 69678-3 #### TITUS Mercado ([id number]) [facility] ([facility]) [address] [place], [place] [address]PWB 12-LEADon 61-42-5075DTD 12-LEADVentricular Rate 63 Atrial Rate 63 P-R Interval 268 QRS Duration 74 Q-T Interval 406 QTC Calculation(Bazett) 415 P [place] 58 R [place] -3 T [place] 18 QRS Count 10 Q Onset 224 P Onset 90 P Offset 149 T Offset 427 QTC Fredericia 412 Diagnosis Sinus rhythm with 1st degree AV block Otherwise normal ECG When compared with ECG of 30-JAN-2019 19:26, heart rate decreased Confirmed by Tobi Rico ([id number]) on 02/12/2024 12:20:00 PMNEssentia HealthNICOTINE AND METABOLITES,Son 84-68-6535Ksismomj [Mass/Vol]152 ng/mLNHighland District HospitalComment on above: Performed By: #### NI+ME #### [facility] ([place]) ([id number]) [address] [place], [place] [address]Yrvqvrkc [Mass/Vol]6 ng/mLNHighland District HospitalComment on above:Result Comment: INTERPRETIVE INFORMATION: Nicotine and [...] developed and its performance characteristics determined by [facility]. It has not been cleared or approved by the US Food and Drug Administration. This test was performed in a CLIA certified laboratory and is intended for clinical purposes. Performed By: [facility] [address] [place] [address] Research Associate Professor: Benjamin Bullock MD, PhD CLIA Number: [id number] By: #### NI+ME #### [facility] ([place]) ([id number]) [address] [place] [address] 975[address]QR and aPTT panel Coag (PPP)on 35-76-9812wEKC Coag (PPP) [Time]33 cRnutge96-02TotvvfpgejCleveland Clinic FoundationComment on above:Order Comment: The APTT is no longer used for monitoring Unfractionated Heparin Therapy. For monitoring Heparin Therapy, use the Heparin Assay.Performed By: #### 67189-4 #### TITUS Mercado ([id number]) [facility] ([facility]) [address] [place] [address] 31206XCM Coag (PPP) [Relative time]1.7Cjnehd0.9-1.1UnCleveland Clinic FoundationComment on above:Order Comment: The APTT is no longer used for monitoring Unfractionated Heparin Therapy. For monitoring Heparin Therapy, use the Heparin Assay.Performed By: #### 93303-2 #### TITUS Mercado (06851) [facility] ([facility]) [address] [place] [address] 28903KN Coag (PPP) [Time]11.5 sNormal9.8-12.8Greene Memorial HospitalComment on above:Order Comment: The APTT is no longer used for monitoring Unfractionated Heparin Therapy. For monitoring Heparin Therapy, use the Heparin Assay.Performed By: #### 15970-6 #### TITUS Mercado ([id number]) [facility] ([facility]) [address] [place] [address] 63195Lhzikhnwnknuke aureus.methicillin resistant isolateon 35-18-7880BZQT isol Org specific cx Ql (Nose)Test: Staphylococcus aureus/MRSA colonization, Culture Specimen Source: Anterior Nares Specimen Type: Swab Specimen Date: 02/11/2024 150 Result Date: 02/13/2024825 Result Status: Final result Abnormal: No Resulting Lab: [facility] [address] [place] [address] CULTURE No Staphylococcus aureus isolatedNormalUniSouthview Medical CenterComment on above:Performed By: #### 92041-5 #### TITUS Mercado (25545) [facility] ([facility]) [address] [place] [address] 39721Bwdqqlkxfu complete W Reflex Culture panel (U)on 02-11-2024 Appearance (U)ClearNormalClearGreene Memorial Hospital Comment on above:Performed By: #### 05611-0 #### TITUS Mercado ([id number]) [facility] ([facility]) [address] [place] [address] 17484Nacnrsraw (U) [Mass/Vol]NegativeNormalNEGATIVEGreene Memorial HospitalComment on above:Performed By: #### 41952-2 #### TITUS Mercado (27404) [facility] ([facility]) [address] [place] [address] 08936Fmnnb (U)ColorlessNormalLight-Yellow, Yellow, Dark-Yellow Greene [facility] HospitalComment on above:Performed By: #### 80271-4 #### TITUS Mercado (82109) [facility] ([facility]) [address] [place] [address] 34898Zjwnuek Auto test strip (U) [Mass/Vol]NormalNormalNormal [facility] Memorial HospitalComment on above:Performed By: #### 19853-4 #### TITUS Mercado (99814) [facility] ([facility]) [address] [place] [address] 19324Qqbozru (U) [Mass/Vol]NegativeNormalNEGATIVEUnCleveland Clinic FoundationComment on above:Performed By: #### 62041-6 #### TITUS Mercado (53687) [facility] ([facility]) [address] [place] [address] 82876Jcnhjthsp esterase Auto test strip Ql (U)NegativeNormal NEGATIVEGreene Memorial HospitalComment on above:Performed By: #### 02760-6 #### TITUS Mercado ([id number]) [facility] ([facility]) [address] [place] [address] 33303Ahqkedx Auto test strip Ql (U)NegativeNormalNEGATIVE [facility] HospitalComment on above:Performed By: #### 40869-3 #### TITUS Mercado (39697) [facility] ([facility]) [address] [place] [address] 50229uK (U)5.5 [pH]Normal5.0, 5.5, 6.0, 6.5, 7.0, 7.5, 8.0 [facility] Memorial HospitalComment on above:Performed By: #### 53724-9 #### TITUS Mercado ([id number]) [facility] ([facility]) [address] [place] [address] 21137Pzmjvdj (U) [Mass/Vol]NegativeNormalNEGATIVE, 10 (TRACE), 20 (TRACE)[facility] Memorial HospitalComment on above:Performed By: #### 04817-5 #### TITUS Mercado ([id number]) [facility] ([facility]) [address] [place] [address] 24636XAG (U) [#/Vol]NegativeNormalNEGATIVEGreene Memorial HospitalComment on above:Performed By: #### 12752-0 #### TITUS Mercado ([id number]) [facility] ([facility]) [address] [place], [place] [address]Etnrdhgl gravity (U) [Rel density]1.884Gsmbgt8.005-1.035 [facility] HospitalComment on above:Performed By: #### 64831-7 #### TITUS Mercado ([id number]) [facility] ([facility]) [id number] [place] [address] 74296Gafehvjvwpgz (U) [Mass/Vol]NormalNormalNormalUniversTriHealth Bethesda Butler HospitalComment on above:Performed By: #### 89328-2 #### TITUS Mercado ([id number]) [facility] ([facility]) [address] [place] [address] 32361FQ BRAIN TUMOR PERFUSION PROTOCOL W AND WO IV CONTRASTon 73-61-5986US BRAIN TUMOR PERFUSION PROTOCOL W AND WO IV CONTRASTInterpreted By: Nate Benavidez, STUDY: MR BRAIN TUMOR PERFUSION PROTOCOL W AND WO IV CONTRAST; 12/13/2023 8:49 am INDICATION: Signs/Symptoms:pontine lesion, imaging surveillance. COMPARISON: None. ACCESSION NUMBER(S): [id number] ORDERING CLINICIAN: SHIMON HEATON TECHNIQUE: Axial diffusion, [...] Nate Benavidez 12/13/2023 9:38 AM Dictation workstation: [id number]. Mary's Medical Center, Iront[place] CampusComment on above:Order Comment: FYI results cc'd to [facility] Brain for new diagnosis tumor WO and W contrast Tristin 78-89-7721Avveb is again evidence of nonspecific nonenhancing ill-defined [...] Nate Benavidez 12/13/2023 9:38 AM Dictation workstation: [id number] By: Nate Benavidez, STUDY: MR BRAIN TUMOR PERFUSION PROTOCOL W AND WO IV CONTRAST; 12/13/2023 8:49 am INDICATION: Signs/Symptoms:pontine lesion, imaging surveillance. COMPARISON: None. ACCESSION NUMBER(S): [id number] ORDERING CLINICIAN: SHIMON HEATON TECHNIQUE: Axial diffusion, [...] lesion, imaging surveillance. COMPARISON: None. ACCESSION NUMBER(S): [id number] ORDERING CLINICIAN: SHIMON HEATON TECHNIQUE: Axial diffusion, [...] Nate Benavidez 12/13/2023 9:38 AM Dictation workstation: [id number] [facility] Work Phone: Radiology Study observation (narrative)[facility] Work Phone: Brain for new diagnosis tumor WO and W contrast IV Ordered By: Nate Benavidez on 61-95-9432NzywspqrinBrown Memorial Hospital Work Phone: Basophils Auto (Bld) [#/Vol]on 06-98-9671Chtqmbfdk (Bld) [#/Vol]0.04 10*3/uL<0.11Kettering HealthBasophils/100 WBC Auto (Bld)on 76-30-7095Puessehzf/100 WBC (Bld)0.5 %Kettering HealthBlood manual differential comment interpretation narrativeon 10-26-2023 Manual differential comment Curtis (Bld) [Interp]AutoKettering HealthCB W Auto Differential panel (Bld)on 42-70-6963Lctxcymbq (Bld) [#/Vol] 0.04 10*3/uLNINFConcord ClinicBasophils/100 WBC (Bld)0.5 %[facility] Differential cell count method Nom (Bld)AutoCleveland ClinicEosinophils (Bld) [#/Vol]0.13 10*3/uLNINFMercy Health Clermont HospitalEosinophils/100 WBC (Bld)1.5 %[facility] HospitalErythrocyte distribution width (RBC) [Ratio]13.8 %11.5 - 15.0 %[facility]erm[facility] HospitalHematocrit (Bld) [Volume fraction]42.6 %39.0 - 51.0 %[facility] Hemoglobin (Bld) [Mass/Vol]14.4 g/dL13.0 - 17.0 g/dLMercy Health Clermont HospitalImmature granulocytes (Bld) [#/Vol]0.03 10*3/uLNINFMercy Health Clermont HospitalImmature granulocytes/100 WBC (Bld)0.3 %[facility]ermont HospitalLymphocytes (Bld) [#/Vol]2.18 10*3/uLMercy Health Clermont HospitalLymphocytes/100 WBC (Bld)24.8 %[facility] HospitalH (RBC) [Entitic mass]32.0 pg26.0 - 34.0 pgCleveland Monticello HospitalHC (RBC) [Mass/Vol]33.8 g/dL30.5 - 36.0 g/dLMercy Health Clermont HospitalMCV (RBC) [Entitic vol]94.7 fL80.0 - 100.0 fLClevelcone health women's hospital ClinicMonocytes (Bld) [#/Vol]0.60 10*3/NINFMercy Health Clermont Hospital Monocytes/100 WBC (Bld)6.8 %[facility]erm[facility] HospitalNeutrophils (Bld) [#/Vol]5.80 10*3/uLMercy Health Clermont HospitalNeutrophils/100 WBC (Bld)66.1 %[facility] HospitalNucleated RBC (Bld) [#/Vol]NINFClevelClinton Memorial HospitalNucleated RBC/100 WBC (Bld) [Ratio]0.0 % /100 WBCMercy Health Clermont HospitalPlatelet mean volume (Bld) [Entitic vol]10.2 fL9.0 - 12.7 fLCuniversity hospitals beachwood medical center ClinicPlatelets (Bld) [#/Vol]314 10*3/uLMercy Health Clermont HospitalRBC (Bld) [#/Vol]4.50 10*6/uL4.20 - 6.00 m/[facility] CenterWBC (Bld) [#/Vol]8.78 10*3/uLTuscarawas HospitalCT Chest W contrast Tristin 10-26-2023 IMPRESSION: [...] any questions regarding this interpretation, please call [phone]. If you are unable to reach us at the number above, please feel free to contact [facility] eRadiology at [phone].DIVISION OF RADIOLOGY* * *Final Report* * * DATE OF EXAM: Oct 26 2023 10:05AM [facility] 0539 - CT CHEST W [...] images: No additional findings. DIVISION OF RADIOLOGYProvider, [facility] [place] - 10/26/2023 * * *Final Report* * * DATE OF EXAM: Oct 26 2023 10:05AM [facility] 0539 - CT CHEST W [...] any questions regarding this interpretation, please call [phone]. If you are unable to reach us at the number above, please feel free to contact [facility] eRadiology at [phone]. [facility] Neck W contrast Tristin 70-58-4655NELWMKWPAP: Primary: 1: Expected post-treatment changes in the neck without evidence of recurrent disease in the primary site. Neck: 1: No evidence of abnormal lymph nodes. [email or web address] Transcribe Date/Time: Oct 26 2023 10:15A Dictated by: LIMA LIZ MD This examination was interpreted and the report reviewed and electronically signed by: LIMA LIZ MD on Oct 26 2023 10:35AM EST Thank you for allowing us to participate in the care of your patient. Should there be any questions regarding this interpretation, please call [phone]. 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 Resected T1 N1 base [...] normal. Parotid and submandibular spaces are normal. Outside Plant Cable Engineer spaces appear normal. Infrahyoid Neck: Hypopharynx, larynx, [...] are clear of focal consolidation or mass. 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 Resected T1 N1 base [...] normal. Parotid and submandibular spaces are normal. Outside Plant Cable Engineer spaces appear normal. Infrahyoid Neck: Hypopharynx, larynx, [...] are clear of focal consolidation or mass. Speech And Drama Teacher (topogram) images: Noncontributory IMPRESSION IMPRESSION: Primary: 1: Expected post-treatment changes in the neck without evidence of recurrent disease in the primary site. Neck: 1: No evidence of abnormal lymph nodes. [email or web address] Transcribe Date/Time: Oct 26 2023 10:15A Dictated by: LIMA LIZ MD This examination was interpreted and the report reviewed and electronically signed by: (more content not included)...Simon ClinicCT Neck W contrast IVOrdered By: Ccf Provider on 46-48-7210Wwftvphix New Prague HospitalComprehensive metabolic 2000 panel Ordered By: Pauly Chan on 62-72-2850Xklltpt [Mass/Vol]4.3 g/dL3.9 - 4.9 g/dL Concord ClinicALP [Catalytic activity/Vol]75 U/L38 - 113 U/LCleveland Clinic ALT [Catalytic activity/Vol]10 U/L10 - 54 U/LCleveland ClinicAnion gap [Moles/Vol]8 mmol/LLow9 - 18 mmol/LCleveland ClinicAST [Catalytic activity/Vol]9 U/LLow14 - 40 U/LCleveland ClinicBilirubin [Mass/Vol]0.5 mg/dL0.2 - 1.3 mg/dL [facility] HospitalCalcium [Mass/Vol]9.9 mg/dL8.5 - 10.2 mg/dLMercy Health Clermont Hospital Chloride [Moles/Vol]106 mmol/LHigh97 - 105 mmol/LCleveland ClinicCO2 [Moles/Vol] 27 mmol/L22 - 30 mmol/LCleveland ClinicCreatinine [Mass/Vol]1.01 mg/dL0.73 - 1.22 mg/dLMercy Health Clermont HospitalGFR/1.73 sq M.predicted among non-blacks MDRD (S/P/Bld) [Vol [...] actual GFR.Glucose [Mass/Vol] 89 mg/dL74 - 99 mg/dLMercy Health Clermont HospitalComment on above:The [place] Diabetes Association (ADA) provides guidance for cutoff [...] Standards of Medical Care in Diabetes 2016, [place] [employer] Association. Diabetes Care. 2016.39(Suppl 1). Interpretation and review of laboratory resultsAbnormalCleveland ClinicPotassium [Moles/Vol]4.0 mmol/L3.7 - 5.1 mmol/LCleveland ClinicProtein [Mass/Vol]6.4 g/dL 6.3 - 8.0 g/dLCleavita health system bucyrus hospital ClinicSodium [Moles/Vol]141 mmol/L136 - 144 mmol/L [facility] Clermont HospitalUrea nitrogen [Mass/Vol]16 mg/dL9 - 24 mg/dLClermont County HospitalEosinophils/100 WBC Auto (Bld)on 14-55-4607Fjcyiwnqejz/100 WBC (Bld)1.5 %Kettering HealthErythrocyte distribution width Auto (RBC) [Ratio]on 67-71-8069Fuqqphgbzyg distribution width (RBC) [Ratio]13.8 % 11.5-15.0Kettering HealthHematocrit Auto (Bld) [Volume fraction]on 45-23-4538Nyslmhfcby (Bld) [Volume fraction]42.6 %39.0-51.0K[facility]tering HealthHemoglobin [Mass/volume] in Bloodon 86-28-0493Vtdsxhwtrl (Bld) [Mass/Vol]14.4 g/dL13.0-17.0K[facility]tering HealthLaboratory - Chemistry and Chemistry - challengeon 51-09-2580Htxzrvd [Mass/Vol]4.3 g/dL 3.9-4.9K[facility]tering HealthALP [Catalytic activity/Vol]75 U/L38-113 [facility] HealthALT [Catalytic activity/Vol]10 U/L10-54 [facility] HealthAST [Catalytic activity/Vol]9 U/U47-69VyxqjcrcxKettering HealthBilirubin [Mass/Vol]0.5 mg/dL0.2-1.3FWayne HealthCare Main CampusCalcium [Mass/Vol]9.9 mg/dL8.5-10.2FWayne HealthCare Main CampusChloride [Moles/Vol]106 mmol/G48-520GybsayyisKettering HealthCO2 [Moles/Vol]27 mmol/A59-37ObxhcffecKettering HealthCreatinine [Mass/Vol] 1.01 mg/dL0.73-1.22[facility] HealthGlucose [Mass/Vol]89 mg/dL 74-99[facility] HealthComment on above:The [place] [employer] (ADA) provides guidance for cutoff [...] diabetes.Reference: [employer] Diabetes 2016, [place] [employer]. Diabetes Care. 2016.39(Suppl 1). Potassium [Moles/Vol]4.0 mmol/L3.7-5.1FThe University of Toledo Medical Centerodium [Moles/Vol]141 mmol/M705-316KhsfmkcymKettering HealthUrea nitrogen [Mass/Vol]16 mg/dL9-24[facility] [facility] - Hematology and Cell countson 96-61-9277Kmenaxyaszk (Bld) [#/Vol]0.13 10*3/uL<0.46[facility] HealthImmature granulocytes (Bld) [#/Vol]0.03 10*3/uL<0.10 [facility] HealthImmature granulocytes/100 WBC (Bld)0.3 % [facility] HealthLeukocytes [#/volume] corrected for nucleated erythrocytes in Blood by Automated counon 52-41-7022PHW corrected for nucl RBC Auto (Bld) [#/Vol]8.78 k/uL3.70-11.00[facility] Lymphocytes Auto (Bld) [#/Vol]on 53-33-0882Jwazmpxwepk (Bld) [#/Vol]2.18 10*3/uL 1.00-4.00[facility] HealthLymphocytes/100 WBC Auto (Bld)on 36-74-1667Keguneygfzo/100 WBC (Bld)24.8 %[place]H Auto (RBC) [Entitic mass]on 48-30-6112KNW (RBC) [Entitic mass]32.0 pg26.0-34.0 [facility] HealthMCHC Auto (RBC) [Mass/Vol]on 12-37-9293CWVA (RBC) [Mass/Vol]33.8 g/dL30.5-36.0CentervilleV Auto (RBC) [Entitic vol]on 25-48-5210WRU (RBC) [Entitic vol]94.7 fL80.0-100.0 [facility] HealthMonocytes Auto (Bld) [#/Vol]on 10-26-2023 Monocytes (Bld) [#/Vol]0.60 10*3/uL<0.87[facility] Monocytes/100 WBC Auto (Bld)on 94-75-4901Zsscuscjy/100 WBC (Bld)6.8 %[facility] HealthNeutrophils Auto (Bld) [#/Vol]on 71-53-7350Palltiepesp (Bld) [#/Vol]5.80 10*3/uL1.45-7.50[facility] Neutrophils/100 WBC Auto (Bld)on 83-95-4889Lcdpqxzrlye/100 WBC (Bld)66.1 % [facility] HealthNo Panel Informationon 41-40-6893Ziicteufw Study observation (narrative)[facility] HospitalEstimated GFR (CKD-EPI)85 mL/min/1.73m???>=60[facility] HealthComment on above:Estimated Glomerular Filtration Rate (eGFR) is [...] reflect actual GFR.Nucleated RBC Auto (Bld) [#/Vol]on 46-17-8521Ypltqhywi RBC (Bld) [#/Vol]10*3/uL<0.01[facility] HealthNucleated erythrocytes [Presence] in Blood by Automated counton 10-26-2023 Nucleated RBC Auto Ql (Bld)0.0 /100{WBC}[facility] Platelet mean volume Auto (Bld) [Entitic vol]on 92-36-2351Vjckabbh mean volume (Bld) [Entitic vol]10.2 fL9.0-12.7FWayne HealthCare Main CampusPlatelets Auto (Bld) [#/Vol]on 42-21-1859Odgukcztl (Bld) [#/Vol]314 10*3/hU906-450 [facility] HealthProtein [Mass/volume] in Serum or Plasmaon 49-92-7805Dskmolo [Mass/Vol]6.4 g/dL6.3-8.0[facility] HealthRBC Auto (Bld) [#/Vol]on 59-10-6846IZY (Bld) [#/Vol]4.50 10*6/uL4.20-6.00[facility] Campuserum or plasma anion gap determinationon 71-90-9906Tvjsp gap [Moles/Vol]8 mmol/L9-18FWayne HealthCare Main CampusAlanine aminotransferase [Enzymatic activity/volume] in Serum or PlasmaOrdered By: Griselda Hastings on 28-77-5061YFF [Catalytic activity/Vol]8 U/L7-52[facility] HealthAlbumin [Mass/volume] in Serum or Plasma by Bromocresol green (BCG) dye binding methoOrdered By: Griselda Hastings on 23-77-0384Ycavszk BCG dye [Mass/Vol]3.9 g/dL3.5-5.7FWayne HealthCare Main CampusAlkaline phosphatase [Enzymatic activity/volume] in Serum or PlasmaOrdered By: Griselda Hastings on 78-58-5739GKE [Catalytic activity/Vol]59 U/L55-404ZgdvfrjlqKettering HealthAspartate aminotransferase [Enzymatic activity/volume] in Serum or Plasma Ordered By: Griselda Hastings on 83-81-2835UQI [Catalytic activity/Vol]7 U/L13-39 [facility] HealthBasophils Auto (Bld) [#/Vol]Ordered By: Griselda Hastings on 39-21-0468Hawnwnhpf (Bld) [#/Vol]0.1 10*3/uL0.0-0.2FWayne HealthCare Main CampusBasophils/100 WBC Auto (Bld)Ordered By: Griselda Hastings on 10-09-2023 Basophils/100 WBC (Bld)0.9 %.[facility] HealthBilirubin.total [Mass/volume] in Serum or PlasmaOrdered By: Griselda Hastings on 48-68-2815Vvaqabgqz [Mass/Vol]0.5 mg/dL0.3-1.0[facility] HealthCOVID-19 Detected/Not DetectedOrdered By: Griselda Hastings on 15-03-3840AAVJ-CoV-2 (COVID-19) RNA JER+non- probe Ql (Nph)Not detectedNot DetectThe Surgical Hospital at SouthwoodsComment on above:This is a duplicate RP2.1 COVID (PCR) result to be used for statistical tracking purpose only.Calcium [Mass/volume] in Serum or PlasmaOrdered By: Griselda Hastings on 86-98-2564Tgevrpe [Mass/Vol]9.5 mg/dL8.6-10.3FWayne HealthCare Main CampusCarbon dioxide, total [Moles/volume] in Serum or PlasmaOrdered By: Griselda Hastings on 83-47-1326KU4 [Moles/Vol]30.0 mmol/L21.0-31.0[facility] HealthChloride [Moles/volume] in Serum or PlasmaOrdered By: Griselda Hastings on 12-15-6206Qnhtbajs [Moles/Vol]103 mmol/M73-005EakacmdouKettering Health Creatinine [Mass/volume] in Serum or PlasmaOrdered By: Griselda Hastings on 10-09-2023 Creatinine [Mass/Vol]0.92 mg/dL0.70-1.30[facility] Eosinophils Auto (Bld) [#/Vol]Ordered By: Griselda Hastings on 18-44-7940Pccyfvmvash (Bld) [#/Vol]0.1 10*3/uL0.0-0.45[facility] HealthEosinophils/100 WBC Auto (Bld)Ordered By: Griselda Hastings on 91-03-6621Pzfcbosactp/100 WBC (Bld)1.0 %.[facility] HealthErythrocyte distribution width Auto (RBC) [Ratio]Ordered By: Griselda Hastings on 16-86-0656Yhivmymnclo distribution width (RBC) [Ratio]14.3 %12.0-14.8[facility] HealthGlobulin Calc (S) [Mass/Vol]Ordered By: Griselda Hastings on 13-03-1270Lkmjfmem (S) [Mass/Vol]2.0 g/dL [facility] HealthGlucose [Mass/volume] in Serum or PlasmaOrdered By: Griselda Hastings on 51-82-0063Wkzzwpf [Mass/Vol]84 mg/kT04-510QmxzhzqlcKettering HealthComment on above:ADA recommended reference rangeRandom Glucose Reference Range is dependent on time and content of last meal. Glucose of more than 200 mg/dL in a nonstressed, ambulatory subject supports the diagnosisof Diabetes Mellitus.Hematocrit Auto (Bld) [Volume fraction]Ordered By: Griselda Hastings on 57-59-2793Xfjlzzgzkm (Bld) [Volume fraction]41.9 %38.8-50.0[facility] HealthHemoglobin [Mass/volume] in BloodOrdered By: Griselda Hastings on 50-63-8031Zpdiljqbzm (Bld) [Mass/Vol]14.4 g/dL13.0-17.0[facility] HealthLeukocytes [#/volume] corrected for nucleated erythrocytes in Blood by Automated counOrdered By: Griselda Hastings on 92-48-4554ILS corrected for nucl RBC Auto (Bld) [#/Vol]8.1 10*3/uL4.1-10.5FWayne HealthCare Main Campus Lymphocytes Auto (Bld) [#/Vol]Ordered By: Griselda Hastings on 38-24-4455Yrjfuowzpdk (Bld) [#/Vol]2.7 10*3/uL1.00-4.8[facility] HealthLymphocytes/100 WBC Auto (Bld)Ordered By: Griselda Hastings on 38-08-1499Fpkzwicdkfu/100 WBC (Bld)33.6 %.[place]H Auto (RBC) [Entitic mass]Ordered By: Griselda Hastings on 01-04-8566YJJ (RBC) [Entitic mass]32.7 pg27.5-35.2FWayne HealthCare Main CampusMCHC Auto (RBC) [Mass/Vol]Ordered By: Griselda Hastings on 68-31-3793GRPO (RBC) [Mass/Vol]34.4 g/dL32.5-35.6FWayne HealthCare Main CampusMCV Auto (RBC) [Entitic vol]Ordered By: Griselda Hastings on 64-79-8225QZX (RBC) [Entitic vol]94.8 fL83.5-101[facility] HealthMonocytes Auto (Bld) [#/Vol]Ordered By: Griselda Hastings on 06-57-4804Fbbgfklgw (Bld) [#/Vol]0.6 10*3/uL0.0-0.8[facility] HealthMonocytes/100 WBC Auto (Bld) Ordered By: Griselda Hastings on 53-99-0212Qphswulwy/100 WBC (Bld)7.5 %.[facility] HealthNeutrophils Auto (Bld) [#/Vol]Ordered By: Griselda Hastings on 96-44-6682Yagersqitaf (Bld) [#/Vol]4.6 10*3/uL1.8-7.7FWayne HealthCare Main CampusNeutrophils/100 WBC Auto (Bld)Ordered By: Griselda Hastings on 10-09-2023 Neutrophils/100 WBC (Bld)57.0 %.[facility] HealthNo Panel InformationOrdered By: Griselda Hastings on 65-82-2025Kgtlfhwnv GFR (CKD-EPI)> 60.0 mL/MinKettering HealthPharmacy Creatinine Clearance (ChemN/A [facility] HealthNucleated erythrocytes [Presence] in Blood by Automated countOrdered By: Griselda Hastings on 75-45-3410Qizpxkbhp RBC Auto Ql (Bld) 0.2 /100{WBC}0-0.5FWayne HealthCare Main CampusPlatelet mean volume Auto (Bld) [Entitic vol]Ordered By: Griselda Hastings on 03-90-9595Ujscarzk mean volume (Bld) [Entitic vol]8.3 fL6.6-10.1FWayne HealthCare Main CampusPlatelets Auto (Bld) [#/Vol]Ordered By: Griselda Hastings on 93-43-2453Iovarzbow (Bld) [#/Vol]349 10*3/mW097-302BqtlpayakKettering HealthPotassium [Moles/volume] in Serum or PlasmaOrdered By: Griselda Hastings on 76-22-4988Bplcucwzd [Moles/Vol]4.5 mmol/L 3.5-5.1FWayne HealthCare Main CampusProtein [Mass/volume] in Serum or Plasma Ordered By: Griselda Hastings on 18-54-4806Ebpntwp [Mass/Vol]5.9 g/dL6.4-8.9[facility] HealthRBC Auto (Bld) [#/Vol]Ordered By: Griselda Hastings on 74-98-3445VWY (Bld) [#/Vol]4.42 10*6/uL3.90-5.60[facility] HealthRespiratory pathogens DNA and RNA panel - Nasopharynx by JER with non- probe detectionOrdered By: Griselda Hastings on 77-51-6424Fxbfgmxaipl pathogens DNA and RNA panel JER+non-probe (Nph)[facility] Campuserum or plasma albumin/globulin mass ratioOrdered By: Griselda Hastings on 21-03-3404Bglaclj/Globulin [Mass ratio]2.0 {ratio}[facility] West Campuserum or plasma anion gap determinationOrdered By: Griselda Hastings on 99-23-8201Bonit gap [Moles/Vol]9.5 mmol/L6.0-15.0[facility] Campusodium [Moles/volume] in Serum or PlasmaOrdered By: Griselda Hastings on 54-03-9601Enyxpz [Moles/Vol]138 mmol/R570-429 [facility] HealthUrea nitrogen [Mass/volume] in Serum or Plasma Ordered By: Griselda Hastings on 21-82-4646Exti nitrogen [Mass/Vol]14 mg/dL7-25 [facility] HealthWBC Auto (Bld) [#/Vol]Ordered By: Griselda Hastings on 18-27-3324BCO (Bld) [#/Vol]8.1 10*3/uL4.1-10.5FWayne [facility]Care [facility] Study Interpretation of outside studyon 02-69-8983Ccxgxeq images for comparison or treatment purposes, not interpreted by Radiologists.IMAGINGMRI BRAIN W WO CONTRASTon 83-90-9148YLA BRAIN W WO CONTRAST EXAMINATION: MRI OF [...] 1. Abnormal increased T2 signal in the joes, right greater than left, worrisome for low-grade malignancy such as a glioma. Infectious or inflammatory process cannot be excluded, although this seems unlikely given the absence of enhancement. 2. No acute intracranial hemorrhage, infarction, mass effect or midline shift elsewhere in the brain Interpreted by: Vitor Hickman MD Signed by: Vitor Hickman MD 08/01/23 Final resultNoPeak View Behavioral HealthMRI CERVICAL SPINE WO CONTRASTon 57-80-1316UAW CERVICAL SPINE WO CONTRASTEXAMINATION: MRI OF THE [...] Signed by: Vitor Hickman MD 08/01/23 Final resultNormalHealthsouth Rehabilitation Hospital Of LittletonCOVID + FLU Quick Testingon 97-30-4085KJPO-CoV-2 (COVID-19) RNA JER+probe Ql (Unsp spec)NegativeRsync.net Other COVID + FLU Quick TestingNegativeRsync.net Other Quick Strepon 07-02-2023S. pyogenes Org specific cx Ql (Throat)NegativeRsync.net Other Quick StrepRsync.net Other RSVon 71-98-3911HQP Ag IA Ql (Unsp spec)NegativeRsync.net Other Creatinine [Mass/volume] in Serum or PlasmaOrdered By: Ruddy Harvey on 84-20-0462Rdadjlunhq [Mass/Vol]0.91 mg/dL0.70-1.30 [facility]No Panel InformationOrdered By: Ruddy Harvey on 20-09-6813Fcjyfstfl GFR (CKD-EPI)> 60.0 mL/MinKettering HealthPharmacy Creatinine Clearance (Chem83.52[facility] HealthUrea nitrogen [Mass/volume] in Serum or PlasmaOrdered By: Ruddy Harvey on 42-91-0254Tbcr nitrogen [Mass/Vol]15 mg/dL7-25[facility] HealthCreatinine (Bld) [Mass/Vol]Ordered By: Nikole Mota on 62-75-8794Kkrdxxkidp [Mass/Vol]0.9 mg/dL0.6-1.3FWay[facility] Comment on above:ER/ESD physician is notified/shown all ISTAT results.Critical values may be confirmed by laboratorytesting ifdeemed necessary by ER attending doctor.No Panel InformationOrdered By: Nikole Mota on 66-08-0853Wwwzpcj Estimated GFR (eGFR)> 60.0[facility] HealthAlanine aminotransferase [Enzymatic activity/volume] in Serum or PlasmaOrdered By: Griselda Hastings on 42-37-7107CHL [Catalytic activity/Vol]10 U/L7-52[facility] HealthAlbumin [Mass/volume] in Serum or Plasma by Bromocresol green (BCG) dye binding methoOrdered By: Griselda Hastings on 45-49-8850Xgckqro BCG dye [Mass/Vol]4.2 g/dL3.5-5.7FWayne HealthCare Main CampusAlkaline phosphatase [Enzymatic activity/volume] in Serum or PlasmaOrdered By: Griselda Hastings on 04-47-2998TXP [Catalytic activity/Vol]61 U/U23-621IyfkybuwdKettering HealthAspartate aminotransferase [Enzymatic activity/volume] in Serum or Plasma Ordered By: Griselda Hastings on 09-21-9106EHY [Catalytic activity/Vol]8 U/L13-39 [facility] HealthBasophils Auto (Bld) [#/Vol]Ordered By: Griselda Hastings on 32-87-4237Ovtdxiivj (Bld) [#/Vol]0.1 10*3/uL0.0-0.2FWayne HealthCare Main CampusBasophils/100 WBC Auto (Bld)Ordered By: Griselda Hastings on 03-30-2023 Basophils/100 WBC (Bld)0.8 %.[facility] HealthBilirubin.total [Mass/volume] in Serum or PlasmaOrdered By: Griselda Hastings on 67-71-8903Nyohihsqs [Mass/Vol]0.9 mg/dL0.3-1.0[facility] HealthCalcium [Mass/volume] in Serum or PlasmaOrdered By: Griselda Hastings on 61-92-0373Vekkmxe [Mass/Vol]9.1 mg/dL8.6-10.3FWayne HealthCare Main CampusCarbon dioxide, total [Moles/volume] in Serum or PlasmaOrdered By: Griselda Hastings on 71-49-4118HB6 [Moles/Vol]27.0 mmol/L21.0-31.0[facility] HealthChloride [Moles/volume] in Serum or PlasmaOrdered By: Griselda Hastings 88-59-3264Bkhkkarm [Moles/Vol]103 mmol/W18-379RqfeqwzkxKettering HealthCholesterol [Mass/volume] in Serum or PlasmaOrdered By: Griselda Hastings on 77-53-8263Ymcipfcngne [Mass/Vol]224 mg/eQ852-715IleukhuzaKettering HealthComment on above:Chol less than 200 mg/dl low riskChol 201-239 mg/dl borderline riskChol 240 mg/dl and greater high riskCholesterol in LDL Calc [Mass/Vol]Ordered By: Griselda Hastings 52-67-1069Uwjxnirbyzj in LDL [Mass/Vol]148 mg/dL0-100[facility] HealthComment on above:LDL ATP III CLASSIFICATIONLDL less than 100 mg/dL OptimalLDL 100-129 mg/dL Near or above xxnjnseKFE155-952 mg/dL Borderline highLDL 160-189 mg/dL HighLDL greater than 189 mg/dL Very highCholesterol in VLDL Calc [Mass/Vol]Ordered By: Griselda Hastings 42-76-9836Rbyeovpszpg in VLDL [Mass/Vol]31 mg/dLKettering HealthCreatinine [Mass/volume] in Serum or PlasmaOrdered By: Griselda Hastings 44-82-2993Sxamkqipjb [Mass/Vol]0.82 mg/dL0.70-1.30[facility] HealthEosinophils Auto (Bld) [#/Vol] Ordered By: Griselda Hastings 19-09-0122Ztkpscbqkgi (Bld) [#/Vol]0.1 10*3/uL0.0-0.45 [facility] HealthEosinophils/100 WBC Auto (Bld)Ordered By: Griselda Hastings on 66-45-2327Cbxxywlakzr/100 WBC (Bld)0.6 %.[facility] HealthErythrocyte distribution width Auto (RBC) [Ratio]Ordered By: Griselda Hastings on 09-77-7665Wtxlydbvxjk distribution width (RBC) [Ratio]14.1 %12.0-14.8[facility] HealthGlobulin Calc (S) [Mass/Vol]Ordered By: Griselda Hastings on 24-52-0314Nxwhdtrx (S) [Mass/Vol]1.9 g/dLKettering Health Glucose [Mass/volume] in Serum or PlasmaOrdered By: Griselda Hastings on 03-30-2023 Glucose [Mass/Vol]83 mg/nM77-957ZvplaukyjKettering HealthComment on above:ADA recommended reference rangeRandom Glucose Reference Range is dependent on time and content of last meal. Glucose of more than 200 mg/dL in a nonstressed, ambulatory subject supports the diagnosisof Diabetes Mellitus. Hematocrit Auto (Bld) [Volume fraction]Ordered By: Griselda Hastings on 03-30-2023 Hematocrit (Bld) [Volume fraction]41.4 %38.8-50.0[facility] HealthHemoglobin [Mass/volume] in BloodOrdered By: Griselda Hastings on 03-30-2023 Hemoglobin (Bld) [Mass/Vol]14.4 g/dL13.0-17.0[facility] Leukocytes [#/volume] corrected for nucleated erythrocytes in Blood by Automated counOrdered By: Griselda Hastings on 24-38-2721JRN corrected for nucl RBC Auto (Bld) [#/Vol]10.0 10*3/uL4.1-10.5FWayne HealthCare Main CampusLymphocytes Auto (Bld) [#/Vol]Ordered By: Griselda Hastings on 20-52-9280Gdwtfmndbpl (Bld) [#/Vol]1.7 10*3/uL1.00-4.8[facility] HealthLymphocytes/100 WBC Auto (Bld) Ordered By: Griselda Hastings on 74-20-5039Svweyktttrx/100 WBC (Bld)16.8 %.[facility] HealthMCH Auto (RBC) [Entitic mass]Ordered By: Griselda Hastings on 07-59-2666ANJ (RBC) [Entitic mass]33.9 pg27.5-35.2FWayne HealthCare Main CampusMCHC Auto (RBC) [Mass/Vol]Ordered By: Griselda Hastings on 62-62-1986QQYX (RBC) [Mass/Vol]34.9 g/dL32.5-35.6FWayne HealthCare Main CampusMCV Auto (RBC) [Entitic vol]Ordered By: Griselda Hastings on 18-76-2438VKE (RBC) [Entitic vol]97.1 fL 83.5-101[facility] HealthMonocytes Auto (Bld) [#/Vol]Ordered By: Griselda Hastings on 51-07-2922Phqsrecsb (Bld) [#/Vol]0.8 10*3/uL0.0-0.8[facility] HealthMonocytes/100 WBC Auto (Bld)Ordered By: Griselda Hastings on 36-85-6708Drdshbyve/100 WBC (Bld)8.0 %.[facility] Neutrophils Auto (Bld) [#/Vol]Ordered By: Griselda Hastings on 42-99-1355Pqxcwkjxpsc (Bld) [#/Vol]7.3 10*3/uL1.8-7.7FWayne HealthCare Main CampusNeutrophils/100 WBC Auto (Bld)Ordered By: Griselda Hastings on 04-77-6209Ocsuknsbjkx/100 WBC (Bld)73.8 %.[facility] HealthNo Panel InformationOrdered By: Griselda Hastings on 40-37-9613Qakjasnht GFR (CKD-EPI)> 60.0 mL/MinKettering Health Pharmacy Creatinine Clearance (ChemN/[facility] HospitalNucleated erythrocytes [Presence] in Blood by Automated countOrdered By: Griselda Hastings on 56-82-1628Ujpwsgnbr RBC Auto Ql (Bld)0.1 /100{WBC}0-0.5FWayne HealthCare Main CampusPlatelet mean volume Auto (Bld) [Entitic vol]Ordered By: Griselda Hastings on 90-87-9091Rfvsazbv mean volume (Bld) [Entitic vol]9.2 fL6.6-10.1 [facility] HealthPlatelets Auto (Bld) [#/Vol]Ordered By: Griselda Hastings on 75-84-0644Whacdatmw (Bld) [#/Vol]221 10*3/xE886-766YmmjlwwcdKettering HealthPotassium [Moles/volume] in Serum or PlasmaOrdered By: Griselda Hastings on 44-42-7619Flfnsalib [Moles/Vol]4.1 mmol/L3.5-5.1FWayne HealthCare Main CampusProtein [Mass/volume] in Serum or PlasmaOrdered By: Griselda Hastings on 97-54-6607Rcbmekz [Mass/Vol]6.1 g/dL6.4-8.9[facility] HealthRBC Auto (Bld) [#/Vol]Ordered By: Griselda Hastings on 46-85-8820OQF (Bld) [#/Vol]4.26 10*6/uL3.90-5.60[facility] West Campuserum or plasma albumin/globulin mass ratioOrdered By: Griselda Hastings on 15-27-0116Zlulars/Globulin [Mass ratio]2.2 {ratio}[facility] West Campuserum or plasma anion gap determinationOrdered By: Griselda Hastings on 83-43-6690Anqqh gap [Moles/Vol]12.1 mmol/L6.0-15.0[facility] West Campuserum or plasma high density lipoprotein (HDL) cholesterol measurementOrdered By: Griselda Hastings on 03-30-2023 Cholesterol in HDL [Mass/Vol]44 mg/fK12-79GhhksexfcKettering Health Comment on above:HDL CHOL ATP-III CLASSIFICATION Cardiovascular RiskHDL > or equal to 60 mg/dL LOWHDL < 40 mg/dL HIGHSerum or plasma total cholesterol/high density lipoprotein (HDL) cholesterol mass ratOrdered By: Griselda Hastings on 28-04-2193Wggbkcneftz.total/Cholesterol in HDL [Mass ratio]5.1 {ratio}<5.0 [facility] Campusodium [Moles/volume] in Serum or PlasmaOrdered By: Griselda Hastings on 81-94-7728Rvlcyj [Moles/Vol]138 mmol/H204-272XgufzzfjcKettering HealthThyrotropin [Units/volume] in Serum or PlasmaOrdered By: Griselda Hastings on 49-28-4143GWJ Qn0.93 m[IU]/L0.45-5.33[facility] HealthTriglyceride [Mass/volume] in Serum or PlasmaOrdered By: Griselda Hastings on 36-97-8262Lyggipghzjay [Mass/Vol]159 mg/dL0-149[facility] Comment on above:TRIG ATP III CLASSIFICATIONTRIG less than 150 mg/dL NormalTRIG 150-199 mg/dL Borderline highTRIG 200-500 mg/dL High TRIG greater than 500 mg/dL Very highStandard traceable to the Center for Disease Conrtrol and Prevention (CDC) test method.Urea nitrogen [Mass/volume] in Serum or PlasmaOrdered By: Griselda Hastings on 96-40-2963Ageg nitrogen [Mass/Vol]10 mg/dL7-25[facility] HealthWBC Auto (Bld) [#/Vol]Ordered By: Griselda Hastings on 77-79-2275URG (Bld) [#/Vol]10.0 10*3/uL4.1-10.5FWayne HealthCare Main CampusCOVID-19 YENNY Ordered By: Daniel Gaytan on 50-48-2883UQFL-CoV+SARS-CoV-2 (COVID-19) Ag IA.rapid Ql (Resp)NegativeNegativeKettering HealthComment on above:This is a duplicate Yenny SARS Antigen (JAMILA) result to be used for statistical tracking purpose only.No Panel InformationOrdered By: Daniel Gaytan on 94-79-8721AJWO Antigen (LFIA)[facility] CampusARS Antigen (LFIA)[facility] HealthNo Panel Informationon 30-18-5983IE Pain Management Case (Reference Range: not available) *FINAL Date of Service: 12/28/2022 08:49 Adm #: [id number] Reading Dr:RICARDO CAPPS Signoff Dr: RICARDO CAPPS PROCEDURE: PAIN MANAGEMENT CASE - BXR 0999 REASON FOR EXAM: SPONDYLOSIS W/O MYELOPATHY OR RADICULOPATHY, CERVICAL REGION RESULT: Patient Name: SHANTEL MELENDEZ STUDY: PAIN MANAGEMENT CASE INDICATION: SPONDYLOSIS W/O MYELOPATHY OR RADICULOPATHY, CERVICAL REGION COMPARISON: None. ACCESSION NUMBER(S): [id number] ORDERING CLINICIAN: LIMA JOSEPH TECHNIQUE: See below: FINDINGS: Fluoroscopy was provided during therapeutic puncture in the region of the cervical spine for pain management. Total fluoroscopy time: 14.56mgy, images: 4. IMPRESSION: Fluoroscopy for pain management. Dictation workstation: [id number] Original Interpreting Physician: RICARDO CAPPS M.D. Original Transcribed by/Date: MMODAL Dec 28 2022 6:14A Original Electronically Signed by/Date: RICARDO CAPPS M.D. Dec 28 2022 9:04A Addendum Interpreting Physician: Addendum Transcribed by/Date: NO ADDENDUM Addendum Electronically Signed by/Date: [facility] EnterpriseQClueyck Strepon 12-05-2022S. pyogenes Org specific cx Ql (Throat) NegativeBioscale Other Quick StrepBioscale Other CT Chest W contrast Tristin 45-37-5491KVEXSJBZHM: Stable CT of the chest. Unchanged appearance [...] any questions regarding this interpretation, please call [phone]. If you are unable to reach us at the number above, please feel free to contact [facility] Centeriology at [phone].DIVISION OF RADIOLOGY* * *Final Report* * * DATE OF EXAM: Oct 27 2022 11:44AM [facility] 0539 - CT CHEST W [...] No abnormality in the imaged upper abdomen. Speech And Drama Teacher (topogram) images: No additional findings. DIVISION OF RADIOLOGYProvider, [facility] [place] - 10/30/2022 * * *Final Report* * * DATE OF EXAM: Oct 27 2022 11:44AM [facility] 0539 - CT CHEST W [...] No abnormality in the imaged upper abdomen. Speech And Drama Teacher (topogram) images: No additional findings. IMPRESSION IMPRESSION: [...] any questions regarding this interpretation, please call [phone]. If you are unable to reach us at the number above, please feel free to contact [facility] eRadiology at [phone]. [facility] W Auto Differential panel (Bld)on 10-27-2022 Basophils (Bld) [#/Vol]0.03 10*3/uLNINFMercy Health Clermont HospitalBasophils/100 WBC (Bld) 0.3 %[facility] HospitalDifferential cell count method Nom (Bld)AutoCleveland ClinicEosinophils (Bld) [#/Vol]0.06 10*3/uLNINFMercy Health Clermont HospitalEosinophils/100 WBC (Bld)0.7 %[facility] HospitalErythrocyte distribution width (RBC) [Ratio]14.0 % 11.5 - 15.0 %[facility] HospitalHematocrit (Bld) [Volume fraction]43.5 %39.0 - 51.0 %[facility] HospitalHemoglobin (Bld) [Mass/Vol]14.5 g/dL13.0 - 17.0 g/dLMercy Health Clermont HospitalImmature granulocytes (Bld) [#/Vol]0.03 10*3/uLNINFMercy Health Clermont Hospital Immature granulocytes/100 WBC (Bld)0.3 %[facility] HospitalLymphocytes (Bld) [#/Vol]2.00 10*3/uLMercy Health Clermont HospitalLymphocytes/100 WBC (Bld)21.9 %[facility]st HospitalH (RBC) [Entitic mass]31.3 pg26.0 - 34.0 pgCOur Lady of Mercy Hospital - AndersonHC (RBC) [Mass/Vol]33.3 g/dL30.5 - 36.0 g/dLCleveland Clinic Hillcrest HospitalV (RBC) [Entitic vol]93.8 fL80.0 - 100.0 fLClevelcone health women's hospital ClinicMonocytes (Bld) [#/Vol]0.53 10*3/uLNINF [facility] HospitalMonocytes/100 WBC (Bld)5.8 %[facility] HospitalNeutrophils (Bld) [#/Vol]6.47 10*3/uLMercy Health Clermont HospitalNeutrophils/100 WBC (Bld)71.0 %[facility] HospitalNucleated RBC (Bld) [#/Vol]NINFCleveland ClinicNucleated RBC/100 WBC (Bld) [Ratio]0.0 %/100 WBCMercy Health Clermont HospitalPlatelet mean volume (Bld) [Entitic vol] 10.8 fL9.0 - 12.7 fLCuniversity hospitals beachwood medical center ClinicPlatelets (Bld) [#/Vol]253 10*3/uLConcord ClinicRBC (Bld) [#/Vol]4.64 10*6/uL4.20 - 6.00 m/uLMercy Health Clermont HospitalWBC (Bld) [#/Vol]9.12 10*3/[facility] HospitalCT Ne[facility] W contrast Tristin [id number]: Primary NIRADS Category: 1. Expected post-treatment changes in the neck without evidence of recurrent disease in the primary site. Neck NIRADS Category: 1. No evidence of abnormal lymph nodes. [email or web address] Transcribe Date/Time: Oct 27 2022 11:56A Dictated by: KALPANA HAMPTON MD This examination was interpreted and the report reviewed and electronically signed by: KALPANA HAMPTON MD on Oct 27 2022 12:14PM EST Thank you for allowing us to participate in the care of your patient. Should there be any questions regarding this interpretation, please call [phone]. 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 Parotid and submandibular spaces are normal. Outside Plant Cable Engineer spaces appear normal. Infrahyoid Neck: Hypopharynx, larynx, [...] focal consolidation or mass. 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 Parotid and submandibular spaces are normal. Outside Plant Cable Engineer spaces appear normal. Infrahyoid Neck: Hypopharynx, larynx, [...] 1. No evidence of abnormal lymph nodes. [email or web address] Transcribe Date/Time: Oct 27 2022 11:56A Dictated by: KALPANA HAMPTON MD This examination was interpreted and the report reviewed and electronically signed by: KALPANA HAMPTON MD on Oct 27 2022 12:14PM EST Thank you for allowing us to participate in the care of your patient. Should there be any questions regarding this interpretation, please call [phone]. If you are unable to reach us at the number above, please feel free to contact [facility] eRadiology at [phone]. [facility] HospitalCT Neck W contrast IVOrdered By: Ccf Provider on 10-27-2022 [facility] HospitalComprehensive metabolic 2000 panelOrdered By: Kelly Goodson on 18-80-5601Inpulxu [Mass/Vol]4.3 g/dL3.9 - 4.9 g/dLConcord ClinicALP [Catalytic activity/Vol]89 U/L38 - 113 U/LCleveland ClinicALT [Catalytic activity/Vol]7 U/LLow10 - 54 U/LCleveland ClinicAnion gap [Moles/Vol]10 mmol/L9 - 18 mmol/L [facility] HospitalAST [Catalytic activity/Vol]8 U/LLow14 - 40 U/LC[facility] Clinic Bilirubin [Mass/Vol]0.3 mg/dL0.2 - 1.3 mg/dLConcord ClinicCalcium [Mass/Vol] 9.6 mg/dL8.5 - 10.2 mg/dLConcord ClinicChloride [Moles/Vol]104 mmol/L97 - 105 mmol/LCleveland ClinicCO2 [Moles/Vol]27 mmol/L22 - 30 mmol/LCleveland Clinic Creatinine [Mass/Vol]0.93 mg/dL0.73 - 1.22 mg/dLMercy Health Clermont HospitalGFR/1.73 sq M.predicted among non-blacks MDRD (S/P/Bld) [Vol [...] reflect actual GFR.Glucose [Mass/Vol]98 mg/dL74 - 99 mg/dLMercy Health Clermont HospitalComment on above:The [place] Diabetes Association (ADA) provides guidance for cutoff [...] Standards of Medical Care in Diabetes 2016, [place] Diabetes Association. Diabetes Care. 2016.39(Suppl 1). Interpretation and review of laboratory resultsAbnormalCleveland ClinicPotassium [Moles/Vol]4.5 mmol/L3.7 - 5.1 mmol/LCleveland ClinicProtein [Mass/Vol]6.6 g/dL 6.3 - 8.0 g/dLConcord ClinicSodium [Moles/Vol]141 mmol/L136 - 144 mmol/L [facility] HospitalUrea nitrogen [Mass/Vol]12 mg/dL9 - 24 mg/dLClermont County HospitalNo Panel Informationon 70-08-3414Qroppawqt Study observation (narrative)[facility] aminotransferase [Enzymatic activity/volume] in Serum or PlasmaOrdered By: Griselda Hastings on 33-58-6967PUV [Catalytic activity/Vol]7 U/L7-52[facility] HealthAlbumin [Mass/volume] in Serum or Plasma by Bromocresol green (BCG) dye binding methoOrdered By: Griselda Hastings on 88-63-2070Xzjuoxb BCG dye [Mass/Vol]4.2 g/dL3.5-5.7FWayne HealthCare Main CampusAlkaline phosphatase [Enzymatic activity/volume] in Serum or PlasmaOrdered By: Griselda Hastings on 68-36-9263ALF [Catalytic activity/Vol]76 U/L 34-104K[facility]tering HealthAspartate aminotransferase [Enzymatic activity/volume] in Serum or PlasmaOrdered By: Griselda Hastings on 96-06-4455OMJ [Catalytic activity/Vol]10 U/P64-42HbbjkskmdKettering HealthBasophils Auto (Bld) [#/Vol]Ordered By: Griselda Hastings on 01-59-0853Mzkmuozlx (Bld) [#/Vol]0.0 10*3/uL0.0-0.2FWayne HealthCare Main CampusBasophils/100 WBC Auto (Bld) Ordered By: Griselda Hastings on 12-03-6287Urspyjcfk/100 WBC (Bld)0.9 %.[facility]tering HealthBilirubin.total [Mass/volume] in Serum or PlasmaOrdered By: Griselda Hastings on 61-38-8249Neuggraac [Mass/Vol]0.4 mg/dL0.3-1.0[facility] HealthCalcium [Mass/volume] in Serum or PlasmaOrdered By: Griselda Hastings on 64-85-2280Umiikgw [Mass/Vol]9.1 mg/dL8.6-10.3FWayne HealthCare Main CampusCarbon dioxide, total [Moles/volume] in Serum or PlasmaOrdered By: Griselda Hastings on 59-89-7361IO6 [Moles/Vol]28.3 mmol/L21.0-31.0[facility] HealthChloride [Moles/volume] in Serum or PlasmaOrdered By: Griselda Hastings on 55-73-5725Qlhxoaui [Moles/Vol]105 mmol/B64-160MtxolnoboKettering Health Cholesterol [Mass/volume] in Serum or PlasmaOrdered By: Griselda Hastings on 10-24-2022 Cholesterol [Mass/Vol]240 mg/nI722-489GhorrakmgKettering HealthComment on above:Chol less than 200 mg/dl low riskChol 201-239 mg/dl borderline riskChol 240 mg/dl and greater high riskCholesterol in LDL Calc [Mass/Vol]Ordered By: Griselda Hastings on 62-96-8761Tqbmpxebdra in LDL [Mass/Vol]169 mg/dL0-100K[facility]tering HealthComment on above:LDL ATP III CLASSIFICATIONLDL less than 100 mg/dL OptimalLDL 100-129 mg/dL Near or above gxjluttCSJ257-636 mg/dL Borderline highLDL 160-189 mg/dL HighLDL greater than 189 mg/dL Very high Cholesterol in VLDL Calc [Mass/Vol]Ordered By: Griselda Hastings on 10-24-2022 Cholesterol in VLDL [Mass/Vol]35 mg/dLKettering Health Creatinine [Mass/volume] in Serum or PlasmaOrdered By: Griselda Hastings on 10-24-2022 Creatinine [Mass/Vol]0.88 mg/dL0.70-1.30[facility] Eosinophils Auto (Bld) [#/Vol]Ordered By: Griselda Hastings on 71-45-3064Xxobepbdiie (Bld) [#/Vol]0.1 10*3/uL0.0-0.45K[facility] HealthEosinophils/100 WBC Auto (Bld)Ordered By: Griselda Hastings on 62-18-9855Ghtgynqbimj/100 WBC (Bld)2.0 %.[facility] HealthErythrocyte distribution width Auto (RBC) [Ratio]Ordered By: Griselda Hastings on 53-08-3846Uqrrxdtrwxy distribution width (RBC) [Ratio]14.7 %12.0-14.8[facility] HealthGlobulin Calc (S) [Mass/Vol]Ordered By: Griselda Hastings on 98-39-4067Hxycrbho (S) [Mass/Vol]2.1 g/dL [facility] HealthGlucose [Mass/volume] in Serum or PlasmaOrdered By: Griselda Hastings on 44-01-9994Uxfxrfp [Mass/Vol]82 mg/gH14-277ScaazwiquKettering HealthComment on above:ADA recommended reference rangeRandom Glucose Reference Range is dependent on time and content of last meal. Glucose of more than 200 mg/dL in a nonstressed, ambulatory subject supports the diagnosisof Diabetes Mellitus.Hematocrit Auto (Bld) [Volume fraction]Ordered By: Griselda Hastings on 20-88-0741Wqblayfsjo (Bld) [Volume fraction]43.4 %38.8-50.0[facility] HealthHemoglobin [Mass/volume] in BloodOrdered By: Griselda Hastings on 36-71-2090Ukmbzhrwtv (Bld) [Mass/Vol]14.5 g/dL13.0-17.0[facility] HealthLeukocytes [#/volume] corrected for nucleated erythrocytes in Blood by Automated counOrdered By: Griselda Hastings on 47-90-0386NLR corrected for nucl RBC Auto (Bld) [#/Vol]5.0 10*3/uL4.1-10.5FWayne HealthCare Main Campus Lymphocytes Auto (Bld) [#/Vol]Ordered By: Griselda Hastings on 69-23-1467Yzjrjppvhbf (Bld) [#/Vol]2.0 10*3/uL1.00-4.8[facility] HealthLymphocytes/100 WBC Auto (Bld)Ordered By: Griselda Hastings on 02-24-8695Nnugwzhezqq/100 WBC (Bld)39.8 %.CentervilleH Auto (RBC) [Entitic mass]Ordered By: Griselda Hastings on 91-87-1907YXT (RBC) [Entitic mass]31.5 pg27.5-35.2FUniversity Hospitals Geauga Medical CenterHC Auto (RBC) [Mass/Vol]Ordered By: Griselda Hastings on 30-36-3030IJAH (RBC) [Mass/Vol]33.5 g/dL32.5-35.6FWayne HealthCare Main CampusMCV Auto (RBC) [Entitic vol]Ordered By: Griselda Hastings on 48-60-1125LCL (RBC) [Entitic vol]94.0 fL83.5-101K[facility]tering HealthMonocytes Auto (Bld) [#/Vol]Ordered By: Griselda Hastings on 32-68-6812Dzhtvqkzd (Bld) [#/Vol]0.3 10*3/uL0.0-0.8K[facility] HealthMonocytes/100 WBC Auto (Bld) Ordered By: Griselda Hastings on 63-40-4548Xkrikongh/100 WBC (Bld)5.4 %.[facility]tering HealthNeutrophils Auto (Bld) [#/Vol]Ordered By: Griselda Hastings on 85-53-0196Edavudyupze (Bld) [#/Vol]2.6 10*3/uL1.8-7.7FWayne HealthCare Main CampusNeutrophils/100 WBC Auto (Bld)Ordered By: Griselda Hastings on 10-24-2022 Neutrophils/100 WBC (Bld)51.9 %.[facility] HealthNo Panel InformationOrdered By: Griselda Hastings on 34-65-8467Xqdavriab GFR (CKD-EPI)> 60.0 mL/MinKettering HealthPharmacy Creatinine Clearance (ChemN/A Kettering HealthNucleated erythrocytes [Presence] in Blood by Automated countOrdered By: Griselda Hastings on 91-78-5019Wjqixrilo RBC Auto Ql (Bld) 0.1 /100{WBC}0-0.5FWayne HealthCare Main CampusPlatelet mean volume Auto (Bld) [Entitic vol]Ordered By: Griselda Hastings on 08-58-8682Rusqswid mean volume (Bld) [Entitic vol]9.6 fL6.6-10.1FWayne HealthCare Main CampusPlatelets Auto (Bld) [#/Vol]Ordered By: Griselda Hastings on 72-56-0174Sgnchdmgo (Bld) [#/Vol]247 10*3/lG851-626BkpfnquanKettering HealthPotassium [Moles/volume] in Serum or PlasmaOrdered By: Griselda Hastings on 55-31-1720Xmnzysjof [Moles/Vol]4.0 mmol/L 3.5-5.1FWayne HealthCare Main CampusProstate specific Ag [Mass/volume] in Serum or PlasmaOrdered By: Griselda Hastings on 65-26-0760Pqiceiyt specific Ag [Mass/Vol]0.370 ng/mL0.000-4.000K[facility] HealthProtein [Mass/volume] in Serum or PlasmaOrdered By: Griselda Hastings on 25-93-4182Fzgynsr [Mass/Vol]6.3 g/dL6.4-8.9K[facility] HealthRBC Auto (Bld) [#/Vol] Ordered By: Griselda Hastings on 85-75-1730KZM (Bld) [#/Vol]4.61 10*6/uL3.90-5.60 [facility] Campuserum or plasma albumin/globulin mass ratio Ordered By: Griselda Hastings on 54-86-1467Xliconq/Globulin [Mass ratio]2.0 {ratio} [facility] West Campuserum or plasma anion gap determinationOrdered By: Griselda Hastings on 78-20-5315Lbysn gap [Moles/Vol]11.7 mmol/L6.0-15.0[facility] West Campuserum or plasma high density lipoprotein (HDL) cholesterol measurementOrdered By: Griselda Hastings on 50-92-9617Bimfngymxzl in HDL [Mass/Vol]36 mg/eO23-28FjlwfizctKettering HealthComment on above:HDL CHOL ATP-III CLASSIFICATION Cardiovascular RiskHDL > or equal to 60 mg/dL LOWHDL < 40 mg/dL HIGHSerum or plasma total cholesterol/high density lipoprotein (HDL) cholesterol mass ratOrdered By: Griselda Hastings on 10-24-2022 Cholesterol.total/Cholesterol in HDL [Mass ratio]6.7 {ratio}<5.0[facility] Campusodium [Moles/volume] in Serum or PlasmaOrdered By: Griselda Hastings on 37-80-9571Eavqcb [Moles/Vol]141 mmol/J909-327UkoxmppgaKettering HealthThyrotropin [Units/volume] in Serum or PlasmaOrdered By: Griselda Hastings on 04-84-6341DGD Qn1.26 m[IU]/L0.45-5.33[facility] Triglyceride [Mass/volume] in Serum or PlasmaOrdered By: Griselda Hastings on 97-39-5107Yoeejlbowtoc [Mass/Vol]175 mg/dL0-149[facility] Comment on above:TRIG ATP III CLASSIFICATIONTRIG less than 150 mg/dL NormalTRIG 150-199 mg/dL Borderline highTRIG 200-500 mg/dL High TRIG greater than 500 mg/dL Very highStandard traceable to the Center for Disease Conrtrol and Prevention (CDC) test method.Urea nitrogen [Mass/volume] in Serum or PlasmaOrdered By: Griselda Hastings on 37-47-2436Kmrj nitrogen [Mass/Vol]15 mg/dL7-25K[facility] HealthWBC Auto (Bld) [#/Vol]Ordered By: Griselda Hastings on 11-84-8578STR (Bld) [#/Vol]5.0 10*3/uL4.1-10.5FWayne HealthCare Main CampusBRIEF OP NOTon 77-86-8381GTOYJ OP NOTHNO ID: [id number] Author: Flores Cat APRN.CNP Service: Interventional Radiology Author Type: Nurse Practitioner Type: Brief Op Note Filed: 09/28/2022 3:14 PM Note Text: BRIEF OPERATIVE / PROCEDURE NOTE LOG ID: [id number] SURGERY/PROCEDURE DATE: 09/28/2022 INCISION/PROCEDURE START TIME: 1:58 PM INCISION CLOSE/PROCEDURE END TIME: 2:27 PM SURGEON(S)/PROCEDURALIST(S) AND OFFICE MOVER(S): Surgeon(s) and Role: * Flores Cat APRN.ANIMAL ECOLOGIST - Primary No Additional Staff SURGERY/PROCEDURE(S): LP [...] Melendez DATE: September 28, 2022 TIME: 3:10 [facility]IR [facility]on 89-51-2358HG LUMBAR PUNCTURE DIAG* * *Final Report* * * DATE OF EXAM: Sep 28 2022 2:41PM [facility] 7594 - IR LUMBAR PUNCTURE DIAG / PROCEDURE REASON: NPH (normal pressure hydrocephalus) ([facility]) [G91.2] * * * * Physician Interpretation [...] guidance was performed in conjunction with the hemodialysis technician. Plane A, Air Kerma: 20.0 mGy Dose Area Product (DAP): 20585.1 mGy*cm2 Fluoro time: 3:54 min: sec Post-Procedure: [...] procedure was performed by: Flores Cat APRN.CNP Video Editor: HARPER Transcribe Date/Time: Sep 28 2022 3:15P Dictated by : FLORES CAT CNP This examination was interpreted and the report reviewed and electronically signed by: FLORES CAT CNP on Sep 28 2022 3:22PM EST [id number] School for Boys PROn [id number] PROGHNO ID: [id number] Author: Court Magana, RN Service: Nursing Author [...] Primary Care Provider Electronically Signed By: Court ChristensenBrockton [facility] BRAIN WO/W IVCONon 78-21-8172Yjpkhipdz ClinicCOVID + FLU Quick Testingon 08-01-2022 SARS-CoV-2 (COVID-19) RNA JER+probe Ql (Unsp spec)NegativeSaint Joe Miew Other COVID + FLU Quick TestingneagatLafayette Regional Health Center Miew Other COVID + FLU Quick TestingNegativeNosaint luke's hospital Miew Other RSVon 06-05-6418IKK Ag IA Ql (Unsp spec)PositiveNort Miew Other Cerebrospinal fluid post-centrifugation appearance determinationOrdered By: Oziel Cadena on 18-20-9071Ycthrmtong (Spun CSF) ColorlessKettering Health Washington TownshipCerebrospinal fluid sample tube volume measurementOrdered By: Oziel Cadena on 72-81-7454Fnsxqnta volume (CSF)22.0 mLKettering HealthColor CSFOrdered By: Oziel Cadena on 37-74-4356Hzgur (CSF)ColorlessColorMercy Health Lorain Hospital Manual cerebrospinal fluid erythrocytes count (number/volume)Ordered By: Oziel Cadena on 52-97-3411SVR Manual cnt (CSF) [#/Vol]0 /uLKettering HealthComment on above:The reference interval and other method performance specifications have not been established for this body fluid. The test result must be integrated into the clinical context for interpretation.No Panel InformationOrdered By: Oziel Cadena on 44-56-6587XYR AppearanceClearClear [facility]tering HealthCSF Tube NumberTube number: 1FWayne HealthCare Main CampusNucleated cells [#/volume] in Cerebral spinal fluid by Manual countOrdered By: Oziel Cadena on 77-50-0044Iebwwscrn cells Manual cnt (CSF) [#/Vol]0.003 10*3/uL0-5FWayne HealthCare Main CampusActivated partial thromboplastin time (aPTT) in platelet poor plasma by coagulation aOrdered By: Loi Wong on 59-79-4977tGRA Coag (PPP) [Time]32.8 s25.1-36.5FWayne HealthCare Main CampusBasophils Auto (Bld) [#/Vol]Ordered By: Loi Wong on 10-95-2111Sirvnkpmq (Bld) [#/Vol]0.1 10*3/uL0.0-0.2FWayne HealthCare Main CampusBasophils/100 WBC Auto (Bld)Ordered By: Loi Wong on 04-16-2022 Basophils/100 WBC (Bld)1.2 %.[facility] HealthCreatine kinase [Enzymatic activity/volume] in Serum or PlasmaOrdered By: Loi Wong on 17-07-6611NZ [Catalytic activity/Vol]69 U/I43-173YyporkcntKettering HealthCreatinine and Glomerular filtration rate.predicted panel (S/P/Bld)Ordered By: Loi Wong on 30-10-0752Xstnqejivo [Mass/Vol]0.97 mg/dL0.64-1.27K[facility] HealthEosinophils Auto (Bld) [#/Vol]Ordered By: Loi Wong on 60-96-8849Tdgdmnhcdtv (Bld) [#/Vol]0.1 10*3/uL0.0-0.45K[facility]tering HealthEosinophils/100 WBC Auto (Bld)Ordered By: Loi Wong on 71-44-4014Jxbbwucpbws/100 WBC (Bld)1.2 %.[facility] Erythrocyte distribution width Auto (RBC) [Ratio]Ordered By: Loi Wong on 22-83-2528Lfeoriagttq distribution width (RBC) [Ratio]14.1 %12.0-14.8[facility] HealthEstimated glomerular filtration rate (GFR) non- AmericanOrdered By: Loi Wong on 36-09-1925YVI/1.73 sq M.predicted among non-blacks MDRD (S/P/Bld) [Vol rate/Area]> 60 mL/MinKettering HealthHematocrit Auto (Bld) [Volume fraction]Ordered By: Loi Wong on 82-45-5038Tjdeuzbnxh (Bld) [Volume fraction]43.2 %38.8-50.0[facility] HealthHemoglobin [Mass/volume] in BloodOrdered By: Loi Wong on 96-84-7250Xmqvoztgtp (Bld) [Mass/Vol]14.7 g/dL13.0-17.0[facility] HealthLaboratory - Chemistry and Chemistry - challengeOrdered By: Loi Wong on 25-39-0231Nazhsackppm peptide B (Bld) [Mass/Vol]29.0 pg/mL5-100 [facility] HealthLaboratory - CoagulationOrdered By: Loi Wong on 58-06-2380LG Coag (PPP) [Time]12.0 s9.0-12.9[facility] HealthLaboratory - Hematology and Cell countsOrdered By: Loi Wong on 33-95-7824Ruizlgcsr RBC/100 WBC (Bld) [Ratio]0.1 %0-0.5FWayne HealthCare Main CampusLeukocytes [#/volume] in Blood by Automated countOrdered By: Loi Wong on 97-80-7398ALC (Bld) [#/Vol]7.7 10*3/uL4.5-11.0K[facility]tering HealthLymphocytes Auto (Bld) [#/Vol]Ordered By: Loi Wong on 65-16-2203Csvamxzpcgw (Bld) [#/Vol]2.3 10*3/uL1.00-4.8[facility]tering HealthLymphocytes/100 WBC Auto (Bld)Ordered By: Loi Wong on 94-36-4406Tnpekwkajse/100 WBC (Bld)29.4 %.[place]ervilleH Auto (RBC) [Entitic mass]Ordered By: Loi Wong on 39-96-1352GXV (RBC) [Entitic mass]32.0 pg27.5-35.2FWayne HealthCare Main CampusMCHC Auto (RBC) [Mass/Vol]Ordered By: Loi Wong on 46-79-9039ICFV (RBC) [Mass/Vol]34.0 g/dL 32.5-35.6FWayne HealthCare Main CampusMCV Auto (RBC) [Entitic vol]Ordered By: Loi Wong on 90-96-0196BBH (RBC) [Entitic vol]94.0 fL83.5-101K[facility]tering HealthMonocytes Auto (Bld) [#/Vol]Ordered By: Loi Wong on 16-66-7582Ivqqosdhx (Bld) [#/Vol]0.6 10*3/uL0.0-0.8K[facility]tering HealthMonocytes/100 WBC Auto (Bld)Ordered By: Loi Wong on 04-16-2022 Monocytes/100 WBC (Bld)7.7 %.[facility]tering HealthNeutrophils Auto (Bld) [#/Vol]Ordered By: Loi Wong on 72-22-8795Trnrbvvdgpc (Bld) [#/Vol]4.7 10*3/uL1.8-7.7FWayne HealthCare Main CampusNeutrophils/100 WBC Auto (Bld) Ordered By: Loi Wong on 52-03-2203Gnavtqoduim/100 WBC (Bld)60.5 %.[facility] HealthNo Panel InformationOrdered By: Loi Wong on 67-35-6073T-Dimer Quantitative (PE/DVT)< 200 ng/mL0-243K[facility]tering HealthComment on above:The reference range for D-dimer is [...] due toco-morbid conditions.Estimated GFR ()> 60 mL/Min [facility] HealthComment on above:GFR estimated reference range: According to KDOQI guidelines, <60 ml/min/1.73m2 is sufficient todiagnose a patient with chronic kidney disease.Pharmacy Creatinine Clearance (Chem79.33 [facility] HealthPlatelet mean volume Auto (Bld) [Entitic vol] Ordered By: Loi Wong on 76-50-7090Zevdvcpn mean volume (Bld) [Entitic vol] 9.7 fL6.6-10.1FWayne HealthCare Main CampusPlatelet poor plasma international normalized ratio (INR) by coagulation assay (relatOrdered By: Loi Wong on 26-58-9573DLV Coag (PPP) [Relative time]1.1 {INR}[facility]tering HealthComment on above:INR Therapeutic Range A) Pre- and [...] (Bld) [#/Vol] Ordered By: Loi Wong on 22-91-9341Qpdlpjteq (Bld) [#/Vol]238 10*3/xM855-856 [facility] HealthRBC Auto (Bld) [#/Vol]Ordered By: Loi Wong on 22-53-4946UMN (Bld) [#/Vol]4.59 10*6/uL3.90-5.60[facility] West Campuserum or plasma anion gap determinationOrdered By: Loi Wong on 44-95-9023Iavei gap [Moles/Vol]12.4 mmol/L6.0-15.0[facility] West Campuserum or plasma calcium measurement (mass/volume)Ordered By: Loi Wong on 31-25-0357Pifthqu [Mass/Vol]9.0 mg/dL8.2-10.2FThe University of Toledo Medical Centererum or plasma chloride measurement (moles/volume)Ordered By: Loi Wong on 23-10-4081Skeidnov [Moles/Vol]103 mmol/I39-811TgadwkmqqTrinity Health System West Campuserum or plasma creatine kinase MB (CKMB)/total creatine kinase (CK) ratio by calculaOrdered By: Loi Wong on 59-11-9131EU.MB Calc [Catalytic fraction]2.0 %0.00-2.50[facility] West Campuserum or plasma creatine kinase MB measurement (mass/volume)Ordered By: Loi Wong on 79-89-6943HY.MB [Mass/Vol]1.4 ng/mL0.6-6.3FThe University of Toledo Medical Centererum or plasma glucose measurement (mass/volume)Ordered By: Loi Wong on 25-49-5881Gilbuho [Mass/Vol]88 mg/vN86-885UisfcikcdKettering Health Comment on above:ADA recommended reference rangeRandom Glucose Reference Range is dependent on time and content of last meal. Glucose of more than 200 mg/dL in a nonstressed, ambulatory subject supports the diagnosisof Diabetes Mellitus. Serum or plasma potassium measurement (moles/volume)Ordered By: Loi Wong on 05-00-6179Cbofjfbpt [Moles/Vol]4.3 mmol/L3.5-5.1FThe University of Toledo Medical Centererum or plasma sodium measurement (moles/volume)Ordered By: Loi Wong on 10-84-5784Emhelf [Moles/Vol]135 mmol/R830-497NnvkwvlxjTrinity Health System West Campuserum or plasma total carbon dioxide measurement (moles/volume)Ordered By: Loi Wong on 71-34-5583AZ7 [Moles/Vol]23.9 mmol/L22.0-30.0[facility] West Campuserum or plasma urea nitrogen measurement (mass/volume) Ordered By: Loi Wong on 34-72-3289Drof nitrogen [Mass/Vol]12 mg/dL9- [facility] HealthTroponin I.cardiac [Mass/volume] in Serum or Plasma by High sensitivity methodOrdered By: Loi Wong on 29-45-5529Qruanoyq I.cardiac High sensitivity method [Mass/Vol]5 pg/mL0-[facility] HealthCOVID Quick Testingon 17-59-0072ZmrghuQiobgkefVfpsu Coast [place] Other Quick Fluon 13-62-4403KACWY Ab CF (S) [Titer]Negative [facility] [place] Other FLUBV Ab CF (S) [Titer]NegativeSaint Joe Miew Other MRI Brain w/o + w/on 89-47-5259UNL Brain w/o + w/ HISTORY: Blurred vision, [...] signed by Jillian Morales on 01/18/2022 1413NormJonathan Natchaug HospitalCell Count + Differential, CSFon 54-35-7744SSQ (Bld) [#/Vol]0.006 10*3/uLabove high threshold0 - 2LA-Uumelwsjnxkw-Hxzyvpy Work Phone: [phone] Count + Differential, CSF70 1 AR-Kilsthfmukjz-Kgmfzka Work Phone: [phone] Count + Differential, CSF10 % QC-Iagajsptghiv-Jogzxyj Work Phone: [phone] Count + Differential, CSF60 % VF-Rasqwjedkcst-Flozfkl Work Phone: [phone] Count + Differential, CSF30 % BN-Egtkncxbrgji-Zwqutvz Work Phone: [phone] Count + Differential, CSFColorlessCOLORLESS RW-Yurskmklhohk-Mbbruti Work Phone: [phone] Count + Differential, MAM834 /uLabove high threshold0 - 2LQ-Vczqrbwwhkgb-Qrfojwm Work Phone: [phone] Count + Differential, CSFTube 1 GH-Vsfmltwihvtx-Xhgzbdm Work Phone: [phone] Count + Differential, CSFClearCLEAR HG-Hucporzteucf-Rvenjbz Work Phone: Cult, CSF, includes smearon 26-58-3746Inybbvpn identified Cx Nom (CSF)PH-Cxhhabzgtuqf-Nvjuytd Work Phone: Laboratoryon 09-31-3263Pqnreyw in CSF/Albumin in Serum or Plasma (S/P+CSF) [Relative ratio]7.9 {ratio}0.0-9.7JS-Yzvloktqjapv-Maynxmn Work Phone: [phone] in CSF/Albumin in Serum or Plasma (S/P+CSF) [Relative ratio]ZgdxqcvdIR-Lpgrasqghctn-Bcbvqqu Work Phone: [phone] - Chemistry and Chemistry - challengeon 37-58-3764Yxwncwe (CSF) [Mass/Vol]36 mg/dLabove high threshold0-35 VG-Xxargepzeupc-Rwagbsd Work Phone: [phone] [Mass/Vol]4578 mg/mF9698-5933 FN-Htxpmkxckgyg-Mxytadb Work Phone: [phone] (CSF) [Mass/Vol]2.2 mg/dL0.0-6.0 NP-Hcvvwzreyakq-Jvnqgaa Work Phone: [phone] [Mass/Vol]496 mg/dLbelow low wffuqotic509-3396 VS-Ytueqfnupboc-Yavfuzz Work Phone: [phone] on above:REFERENCE INTERVAL: Immunoglobulin GAccess complete set of age- and/or gender-specific reference intervals for this test in the [facility] Directory ([employer]).IgG clearance/Albumin clearance (S+CSF) [Ratio]0.56 {ratio}0.28-0.25GY-Srhduurevlwy-Rxkuhka Work Phone: [phone] synthesis rate Calc (S+CSF) [Mass/Time]0.5 mg/d <=8.3KC-Tlpbgqgmyvsn-Kxyxebd Work Phone: [phone]/Albumin (CSF) [Mass ratio]0.06 {ratio}below low threshold0.09-0.10BX-Jfsumixhqxqz-Kfziitn Work Phone: [phone] bands Elph (CSF) [Interp]NegativeNegative PL-Rzejsdrifylg-Kactual Work Phone: [phone] bands Elph Curtis (CSF) [Interp]See Note FL-Gvkrgwiasptw-Hpsjteh Work Phone: [phone] on above:Isoelectric focusing/immunofixation revealed no oligoclonal bands in either the CSF or the serum. This is considered to be a negative result for oligoclonal bands. Approximately 5 percent of patientswith clinically definitive multiple sclerosis will have a negative result.Performed By: [facility] [place] [id number] Director: Regis Reidbumin (CSF) [Mass/Vol]Canceled MA-Fhudfozxgmts-Yuujtwk Work Phone: [phone] [Mass/Vol]ZuplhhwbKJ-Gdndweniiodg-Kdekpon Work Phone: [phone] (CSF) [Mass/Vol]56 mg/dL40 - 70 PH-Jbrxjtsfvcxi-Drveqef Work Phone: [phone] (CSF) [Mass/Vol]MsjpppkfZT-Zalckcisbymq-Ogwyggt Work Phone: [phone] [Mass/Vol]XukvajqpCI-Hltfmtdxfsaz-Kktewdu Work Phone: [phone] clearance/Albumin clearance (S+CSF) [Ratio] UagrihpkTM-Jhgwgybzjzyw-Dqljarq Work Phone: [phone] synthesis rate Calc (S+CSF) [Mass/Time]Canceled XA-Xgowlpdrfhvk-Bbncohd Work Phone: [phone]/Albumin (CSF) [Mass ratio]Canceled MG-Aqbvfxikvjpk-Adcilam Work Phone: [phone] bands Elph (CSF) [Interp]Canceled NT-Kaugkqkogcda-Kdpdqtp Work Phone: [phone] bands Elph Curtis (CSF) [Interp]Canceled UM-Ioaescwknbbo-Zfbkxuj Work Phone: [phone] (CSF) [Mass/Vol]66 mg/dLabove high udptcluvy61 - 00RB-Yohdfsuawghe-Bduagmw Work Phone: [phone] Panel Informationon {Bands}0-1 ON-Gdoffikqnmou-Htxnebn Work Phone: [phone]-Trbqrljlvpnb-Lynn Work Phone: [phone]-Grairroazfgg-Seidman Work Phone: Path Review, CSFon 32-18-6630Ivrf Review, CSFRHAILEE [facility] Work Phone: Comment on above:By her/his signature above, the Pathologist listed as making the final interpretation certifies that she/he has personally reviewed this case. 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 In [...] He saw Dr. Ba a neurologist in [facility]. He describes his vision as [...] MG Oral Tablet Vitals Vital Signs Recorded: 69Uzw7364 09:38AM Fubcsczyfkr99.2 F Heart Rate63 Dleefnhexrp76 Tujzyemj729 Huplehldx43 Blood Pressure Cuff SizeAdult Height5 ft 7.13 in Hobfoj603 lb 6 oz BMI Pprrvikkut88.05 kg/m2 BSA Calculated1.91 Tobacco Usea) Yes Fall Screeninga) No falls within the last year O2 Avzqdvxrqq42 Pain Scale7 Physical Exam Constitutional - General appearance: No acute distress, well de (more content not included)...NormalUH TouchworksOffice Visit Presurgicalon 02-24-8044Nrdfnx Visit PresurgicalDiagnoses/Problems Assessed Weight loss (783.21) (R63.4) Anxiety (300.00) (F41.9) Depression (311) (F32.A) History of high cholesterol (V12.29) (Z86.39) Ischemic demyelination of brain (341.8,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 In [...] He saw Dr. Ba a neurologist in [facility]. He describes his vision as [...] MG Oral Tablet Vitals Vital Signs Recorded: 85Eau7426 09:38AM Pfvhqhxpzcr20.2 F Heart Rate63 Lnyfhmflyxg09 Rhynyzkp985 Lfwwvkghd29 Blood Pressure Cuff SizeAdult Height5 ft 7.13 in Sazsik229 lb 6 oz BMI Oatltjmcnq45.05 kg/m2 BSA Calculated1.91 Tobacco Usea) Yes Fall Screeninga) No falls within the last year O2 Zxuewxowam21 Pain Scale7 Ph (more content not included)...NormalUH [facility] W Auto Differential panel (Bld)on 81-63-4608Tntddfyag (Bld) [#/Vol]0.06 10*3/uLNINFMercy Health Clermont Hospital Basophils/100 WBC (Bld)0.8 %[facility] HospitalDifferential cell count method Nom (Bld)AutoCleveland ClinicEosinophils (Bld) [#/Vol]0.11 10*3/uLNINFMercy Health Clermont HospitalEosinophils/100 WBC (Bld)1.5 %[facility] HospitalErythrocyte distribution width (RBC) [Ratio]12.8 %11.5 - 15.0 %[facility] HospitalHematocrit (Bld) [Volume fraction]43.7 %39.0 - 51.0 %[facility] HospitalHemoglobin (Bld) [Mass/Vol]14.6 g/dL 13.0 - 17.0 g/dLMercy Health Clermont HospitalImmature granulocytes (Bld) [#/Vol]NINFCleveland New Prague HospitalImmature granulocytes/100 WBC (Bld)0.3 %[facility] HospitalLymphocytes (Bld) [#/Vol]1.75 10*3/uLMercy Health Clermont HospitalLymphocytes/100 WBC (Bld)23.7 %[facility] Hill[facility]st HospitalH (RBC) [Entitic mass]32.7 pg26.0 - 34.0 pgClevelMille Lacs Health System Onamia HospitalHC (RBC) [Mass/Vol]33.4 g/dL30.5 - 36.0 g/dLCleveland Clinic Hillcrest HospitalV (RBC) [Entitic vol]98.0 fL80.0 - 100.0 fLCleveland ClinicMonocytes (Bld) [#/Vol]0.52 10*3/uLNINF [facility] HospitalMonocytes/100 WBC (Bld)7.0 %Simon ClinicNeutrophils (Bld) [#/Vol]4.92 10*3/[facility] ClinicNeutrophils/100 WBC (Bld)66.7 %[facility] HospitalNucleated RBC (Bld) [#/Vol]NINFCSalem Regional Medical CenterNucleated RBC/100 WBC (Bld) [Ratio]0.0 %/100 WBCMercy Health Clermont HospitalPlatelet mean volume (Bld) [Entitic vol] 10.8 fL9.0 - 12.7 fLClevelcone health women's hospital ClinicPlatelets (Bld) [#/Vol]246 10*3/uLConcord ClinicRBC (Bld) [#/Vol]4.46 10*6/uL4.20 - 6.00 m/[facility] Medical CenterWBC (Bld) [#/Vol]7.38 10*3/[facility] Medical CenterThis is an appended report. These results have been appended to a previously verified report.[facility] HospitalCT Chest W contrast Tristin 69-83-9987IZFSEZXGZT: 1. Left-sided subcentimeter pulmonary nodules, stable. 2. [...] any questions regarding this interpretation, please call [phone]. If you are unable to reach us at the number above, please feel free to contact [facility] eRadiology at [phone]. ZZZ_DO_NOT_USE_DIVISION OF RADIOLOGY* * *Final Report* * * DATE OF EXAM: Oct 06 2021 8:22AM [facility] 0539 - CT CHEST W [...] images through the upper abdomen appear stable. Speech And Drama Teacher (topogram) images: No additional findings. ZZZ_DO_NOT_USE_DIVISION OF RADIOLOGYProvider, [facility] [place] - 10/06/2021 * * *Final Report* * * DATE OF EXAM: Oct 06 2021 8:22AM [facility] 0539 - CT CHEST W [...] images through the upper abdomen appear stable. Speech And Drama Teacher (topogram) images: No additional findings. IMPRESSION IMPRESSION: [...] any questions regarding this interpretation, please call [phone]. If you are unable to reach us at the number above, please feel free to contact [facility] eRadiology at [phone]. [facility] HospitalCT Neck W contrast Tristin 45-98-4464HCJLGELERK: MODERATE DEGENERATIVE CHANGES INVOLVING THE CERVICAL SPINE. [...] any questions regarding this interpretation, please call [phone]. If you are unable to reach us at the number above, please feel free to contact [facility] Centeriology at [phone]. ZZZ_DO_NOT_USE_DIVISION OF RADIOLOGY* * *Final Report* * * DATE OF EXAM: Oct 06 2021 8:22AM [facility] 0013 - CT NECK SOFT [...] bifurcations and carotid siphons. ZZZ_DO_NOT_USE_DIVISION OF RADIOLOGYProRenown [facility] - 10/06/2021 * * *Final Report* * * DATE OF EXAM: Oct 06 2021 8:22AM [facility] 0013 - CT NECK SOFT [...] any questions regarding this interpretation, please call [phone]. If you are unable to reach us at the number above, please feel free to contact [facility] eRadiology at [phone]. [facility] HospitalCT Neck W contrast IVOrdered By: Ccf Provider on 10-06-2021 [facility] HospitalComprehensive metabolic 2000 panelOrdered By: Micheal Vizcaino on 31-56-6199Oqpouqf [Mass/Vol]4.5 g/dL3.9 - 4.9 g/dLConcord ClinicALP [Catalytic activity/Vol]82 U/L38 - 113 U/LCleveland ClinicALT [Catalytic activity/Vol]25 U/L10 - 54 U/LCleveland ClinicAnion gap [Moles/Vol]10 mmol/L9 - 18 mmol/L Concord ClinicAST [Catalytic activity/Vol]21 U/L14 - 40 U/LCleveland Clinic Bilirubin [Mass/Vol]0.6 mg/dL0.2 - 1.3 mg/dLConcord ClinicCalcium [Mass/Vol] 9.5 mg/dL8.5 - 10.2 mg/dLConcord ClinicChloride [Moles/Vol]106 mmol/LHigh97 - 105 mmol/LCleveland ClinicCO2 [Moles/Vol]29 mmol/L22 - 30 mmol/LCleveland Clinic Creatinine [Mass/Vol]1.01 mg/dL0.73 - 1.22 mg/dLConcord ClinicGFR/1.73 sq M.predicted among non-blacks MDRD (S/P/Bld) [Vol rate/Area]86 mL/min/{1.73_m2}- PINFClevelClinton Memorial HospitalComment on above:Estimated Glomerular Filtration Rate (eGFR) is calculated using the 2020 CKD-EPI creatinine equation. This equation utilizes serum creatinine, sex, and age as parameters. The creatinine assay has traceable calibration to isotope dilution-mass spectrometry. Refer to KDIGO guidelines for clinical interpretation. In patients with unstable renal function, e.g. those with acute kidney injury, the eGFRmay not accurately reflect actual GFR.Glucose [Mass/Vol]107 mg/vDNvbt00 - 99 mg/dLMercy Health Clermont HospitalComment on above:The [place] Diabetes Association (ADA) provides guidance for cutoff [...] Standards of Medical Care in Diabetes 2016, [place] Diabetes Association. Diabetes Care. 2016.39(Suppl 1). Interpretation and review of laboratory resultsAbnormalCleveland ClinicPotassium [Moles/Vol]4.2 mmol/L3.7 - 5.1 mmol/LCleveland ClinicProtein [Mass/Vol]6.5 g/dL 6.3 - 8.0 g/dLWayne HealthCare Main Campusodium [Moles/Vol]145 mmol/WYcdo151 - 144 mmol/L [facility] HospitalUrea nitrogen [Mass/Vol]10 mg/dL9 - 24 mg/dLClermont County HospitalNo Panel Informationon 05-18-5308Dwdlqhwte Study observation (narrative)[facility] HospitalCOVID + FLU Quick Testingon 30-67-7095QKWG-CoV-2 (COVID-19) RNA JER+probe Ql (Unsp spec)NegativeNosaint luke's hospital Miew Other COVID + FLU Quick TestingNegativeNoRsync.net Other COVID Quick Testingon 98-30-7826DqteigBetgnndfIyjuj Miew Other Basophils Auto (Bld) [#/Vol]on 59-44-8452Vavpvskab (Bld) [#/Vol]0.0 10*3/uL0.0-0.2FSumma Health [facility] CtrBasophils/100 WBC Auto (Bld)on 27-52-3033Iigumdzqw/100 WBC (Bld)0.6 %[facility] CtrBlood hemoglobin measurement (mass/volume)on 77-54-0103Cqgpmziwvf (Bld) [Mass/Vol]14.4 g/dL13.0-17.0[facility] CtrBlood leukocytes automated count (number/volume)on 90-25-7343YGM (Bld) [#/Vol]7.4 10*3/uL4.5-11.0 [facility] CtrEosinophils Auto (Bld) [#/Vol]on 09-20-2020 Eosinophils (Bld) [#/Vol]0.1 10*3/uL0.0-0.45[facility]tr Eosinophils/100 WBC Auto (Bld)on 84-55-0402Bakcdtygodu/100 WBC (Bld)0.9 % [facility] CtrErythrocyte distribution width Auto (RBC) [Ratio] on 85-56-1416Ykvriroawye distribution width (RBC) [Ratio]14.6 %12.0-14.8 [facility] CtrHematocrit Auto (Bld) [Volume fraction]on 37-38-4274Eltmflfmav (Bld) [Volume fraction]41.7 %38.8-50.0[facility] CtrLymphocytes Auto (Bld) [#/Vol]on 83-21-7877Mvsbtuutuqe (Bld) [#/Vol] 1.6 10*3/uL1.00-4.8[facility] CtrLymphocytes/100 WBC Auto (Bld) on 29-32-1375Xngablsxgpt/100 WBC (Bld)21.3 %[facility] CenterMCH Auto (RBC) [Entitic mass]on 94-25-0405RJE (RBC) [Entitic mass]32.4 pg27.5-35.2 [facility] Medical CenterMCHC Auto (RBC) [Mass/Vol]on 87-51-2141LNXM (RBC) [Mass/Vol]34.5 g/dL32.5-35.6FMarietta Memorial HospitalMCV Auto (RBC) [Entitic vol]on 98-55-0391GZK (RBC) [Entitic vol]93.9 fL83.5-101[facility] CtrMonocytes Auto (Bld) [#/Vol]on 52-15-6998Kxanfzarg (Bld) [#/Vol]0.6 10*3/uL0.0-0.8[facility] CtrMonocytes/100 WBC Auto (Bld)on 88-55-3106Mcyuekqgs/100 WBC (Bld)8.6 %[facility] Ctr Neutrophils Auto (Bld) [#/Vol]on 68-58-4625Aubbyvdbamx (Bld) [#/Vol]5.1 10*3/uL 1.8-7.7FSumma Health Wadsworth - Rittman Medical Center CtrNeutrophils/100 WBC Auto (Bld)on 09-20-2020 Neutrophils/100 WBC (Bld)68.6 %[facility] CtrOtheron 09-20-2020 Nucleated RBC/100 WBC (Bld) [Ratio]0.0 %0-0.5FMarietta Memorial Hospital Platelet mean volume Auto (Bld) [Entitic vol]on 59-36-0088Vadqmqlo mean volume (Bld) [Entitic vol]9.3 fL6.6-10.1FSumma Health W[facility] - [facility] CtrPlatelets Auto (Bld) [#/Vol]on 74-73-9907Nvmhgfztm (Bld) [#/Vol]182 10*3/sH370-776SqbsfptfiMercy Health – [facility] Hospital CtrRBC Auto (Bld) [#/Vol]on 79-45-0922VCM (Bld) [#/Vol]4.44 10*6/uL3.90-5.60[facility] CtrBody fluid albumin measurement (mass/volume)on 16-63-9878Pstiupo (Body fld) [Mass/Vol]4.3 g/dL3.2-5.5FSumma Health W[facility] - [facility] CtrCholesterol [Mass/volume] in Serum or Plasmaon 09-13-2020 Cholesterol [Mass/Vol]219 mg/xH344-261WsrhzlqzkMercy Health – [facility] Hospital CtrComment on above:Chol less than 200 mg/dl low riskChol 201-239 mg/dl borderline riskChol 240 mg/dl and greater high riskCholesterol in LDL Calc [Mass/Vol]on 09-13-2020 Cholesterol in LDL [Mass/Vol]149 mg/dL0-100[facility] CtrComment on above:LDL ATP III CLASSIFICATIONLDL less than 100 mg/dL OptimalLDL 100-129 mg/dL Near or above bhjhyrmRPO376-046 mg/dL Borderline highLDL 160-189 mg/dL HighLDL greater than 189 mg/dL Very highCholesterol in VLDL Calc [Mass/Vol]on 36-68-3751Knsqswcmfzp in VLDL [Mass/Vol]28 mg/dLUniversity [facility]als Beachwood [facility] Center Creatinine and Glomerular filtration rate.predicted panel (S/P/Bld)on 09-13-2020 Creatinine [Mass/Vol]0.89 mg/dL0.64-1.27[facility] CtrGFR/1.73 sq M.predicted among non-blacks MDRD (S/P/Bld) [Vol rate/Area]on 09-13-2020 GFR/1.73 sq M predicted among non-blacks MDRD (S/P/Bld) [Vol rate/Area]> 60 mL/MinMercy Health – The Jewish Hospital CtrGlobulin Calc (S) [Mass/Vol]on 09-13-2020 Globulin (S) [Mass/Vol]2.0 g/dLMercy Health – The Jewish Hospital CtrNo Panel Informationon 40-71-2232Dtsxkcmbp GFR ()> 60 mL/MinMercy Health – The Jewish Hospital CtrComment on above:GFR estimated reference range: According to KDOQI guidelines, <60 ml/min/1.73m2 is sufficient todiagnose a patient with chronic kidney disease.Otheron 05-71-6596SPG/1.73 sq M.predicted MDRD (S/P/Bld) [Vol rate/Area]> 60 mL/MinMercy Health – The Jewish Hospital CtrComment on above:GFR estimated reference range: According to KDOQI guidelines, <60 ml/min/1.73m2 is sufficient todiagnose a patient with chronic kidney disease.Pharmacy Creatinine Clearance (ChemN/[facility] CtrProstate Specific Antigen Screen 0.480 ng/mL0.000-4.000[facility] CtrProtein [Mass/volume] in Serum or Plasmaon 88-35-9912Ckjpszx [Mass/Vol]6.3 g/dL6.1-7.9[facility] BvmJECR-QiL-8 (COVID-19) IgG Ab [Presence] in Serum or Plasma by Immunoassayon 98-18-4233QTAR-CoV-2 (COVID-19) IgG Ab [Presence] in Serum or Plasma by ImmunoassayPositiveNegativeMercy Health – [facility] CtrComment on above:Results suggest recent or [...] including the receptor binding domain (RBD).Performed at: [address] [id number] Director: Florencio Wu PhD, Phone: [phone]-XlW-0 (COVID-19) IgG IA QlPositiveNegativeMercy Health – [facility] CtrComment on above:Results suggest recent or prior infection with SARS-CoV-2.Correlation with epidemiologic risk factors and otherclinical and laboratory findings is recommended. Serologicresults should not be used as the sole basis to diagnose orexclude recent SARS-CoV-2 infection. False positive resultsinfrequentlyoccur due to prior infection with other humanCoronaviruses.This assay was performed using the [employer](R)SARS-CoV-2 S1/S2 IgG assay.This assay detects antibodies against SARS-CoV-2 spikeprotein including the receptor binding domain (RBD).Performed at: [address] [id number] Director: Florencio Wu PhD, Phone: [phone] or plasma alanine aminotransferase measurement without P-5'-P (enzymatic activion 26-17-0437ZUR No additional P-5'-P [Catalytic activity/Vol]19 U/N37-66FbfmvlhsdMercy Health – [facility] Hospital CtrSerum or plasma albumin/globulin mass ratioon 09-13-2020 Albumin/Globulin [Mass ratio]2.2 {ratio}[facility] CtrSerum or plasma alkaline phosphatase measurement (enzymatic activity/volume)on 09-13-2020 ALP [Catalytic activity/Vol]53 U/U75-51XrwrlompiMercy Health – The Jewish Hospital CtrSerum or plasma aspartate aminotransferase measurement (enzymatic activity/volume)on 52-25-6007HOB [Catalytic activity/Vol]22 U/F96-26RojznlmikUniversity Hospitals Beachwood Medical Center Serum or plasma calcium measurement (mass/volume)on 89-77-2183Jeccskt [Mass/Vol] 9.1 mg/dL8.2-10.2FSumma Health Wadsworth - [facility] CtrSerum or plasma chloride measurement (moles/volume)on 24-99-2511Frbiltqm [Moles/Vol]105 mmol/L95-114 [facility] CtrSerum or plasma glucose measurement (mass/volume) on 29-08-8030Jqoerae [Mass/Vol]97 mg/sW86-521XijqttpajUniversity Hospitals Beachwood Medical Center Comment on above:ADA recommended reference rangeRandom Glucose Reference Range is dependent on time and content of last meal. Glucose of more than 200 mg/dL in a nonstressed, ambulatory subject supports the diagnosisof Diabetes Mellitus. Serum or plasma high density lipoprotein (HDL) cholesterol measurementon 67-96-7976Jcjsyxpgpkk in HDL [Mass/Vol]41 mg/uM35-98NcibwnyhgMercy Health – The Jewish Hospital CtrComment on above:HDL CHOL ATP-III CLASSIFICATION Cardiovascular RiskHDL > or equal to 60 mg/dL LOWHDL < 40 mg/dL HIGHSerum or plasma potassium measurement (moles/volume)on 47-40-9288Ycmeuqnyp [Moles/Vol]4.2 mmol/L3.5-5.1FSumma Health Wadsworth - [facility] Center CtrSerum or plasma sodium measurement (moles/volume)on 66-58-4758Bfvoug [Moles/Vol]135 mmol/Y223-344WkpyjhtqgMercy Health – The Jewish Hospital CtrSerum or plasma thyroid stimulating hormone (TSH) measurement by high sensitivity met on 57-97-8424CBR Qn1.66 u[iU]/mL0.45-5.33[facility] CtrSerum or plasma total bilirubin measurement (mass/volume)on 73-89-2408Gqqsbykcx [Mass/Vol]0.9 mg/dL0.3-1.2FSumma Health Wadsworth - Ritt[facility] CtrSerum or plasma total carbon dioxide measurement (moles/volume)on 28-29-2688JM6 [Moles/Vol]22.5 mmol/L 22.0-30.0[facility] CtrSerum or plasma total cholesterol/high density lipoprotein (HDL) cholesterol mass gia 09-13-2020 Cholesterol.total/Cholesterol in HDL [Mass ratio]5.3 {ratio}[facility] CtrSerum or plasma urea nitrogen measurement (mass/volume)on 09-13-2020 Urea nitrogen [Mass/Vol]12 mg/dL9-23[facility] CtrTS DL <= 0.005 mIU/L Qnon 81-58-3525XLP Qn1.66 m[IU]/L0.45-5.33[facility] CtrTriglyceride [Mass/volume] in Serum or Plasmaon 12-80-5582Epaahfhfueni [Mass/Vol]144 mg/jV49-296MpjagizroMercy Health – The Jewish Hospital CtrComment on above:TRIG ATP III CLASSIFICATIONTRIG less than 150 mg/dL NormalTRIG 150-199 mg/dL Borderline highTRIG 200-500 mg/dL High TRIG greater than 500 mg/dL Very highStandard traceable to the Center for Disease Conrtrol and Prevention (CDC) test method. History and Physicalon 47-66-1465Fowngsd and PhysicalHOSPITAL REGULATIONS: ALL Positive Important Negative [...] eye. Coleen Grajeda M.D. annette Dictated: 04/14/2019 #[id number] Typed 04/14/2019 #[id number] cc: Coleen Grajeda M.D.[facility] JacksonComment on above:Result Comment: Electronically Signed By: Coleen Grajeda MD.br\Date and Time Signed: 04/18/19 09:54 EDTOperative Reporton 03-34-1426Ccdpmhkgb ReportDate of Surgery: 04/14/2019 SURGEON: Coleen Grajeda [...] and inferior fornices of the eye. A ParinGenixan manometer was set on the eye at [...] condition. Coleen Grajeda M.D. 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 Name: SHANTEL MELENDEZ /Sex: 1960 Male Med Rec #: [id number] Physician: Coleen Grajeda MD Financial #: [id number] Pt. Type: A Room/Bed: [place] [address] Admit/Disch: 04/14/19 12:59:00 - 04/14/19 16:00:00 Institution: [...] Performed Surgeon - Primary Scrub - Primary Water Taxi Driver - Primary Time In 04/14/19 14:55:00 04/14/19 [...] VERNON, Pauly GOODEN, RN, Tierra Role Performed Water Taxi Driver - Primary Water Taxi Driver - Relief Time In 04/14/19 14:55:00 04/14/19 [...] Unable to Visualize, Outcomes Met? Yes Warm, [place], Dry Last Modified By: Johnathon Karimi RN [...] RN Patient Status Stable Skin. Condition Warm, [place], Dry Description unchanged Airway Maintenance Oxygen in [...] LENS(Left) Implant Identification FT Description MONTY IOL [id number] SOFPORT Serial Number [id number] SIZE 21.0 [[id number] 21.0][F] Lot Number [id number] Shot Lighter FT-BAUSCH [employer] LOMB Catalog ?# [id number] 21.0[F] Expiration Date 10/16/23 Unique Device [id number] Identifier (BERNARD) Usage Data FT Implant Site [...] RN 04/14/19 15:16 Asya Alves CST 04/15/19 14:44NormOhioHealth Grove City Methodist HospitalInpatient Patient Summaryon 49-10-2595Xktrdzeas Patient SummaryWilson [facility] Clinical Discharge Instructions PERSON INFORMATION Name: SHANTEL MELENDEZ PHYSICIANS Admitting Physician: Coleen Grajeda MD Attending Physician: Coleen Grajeda MD PCP: JILLIAN BARONE DO Discharge Diagnosis: Cataract Comment: PATIENT EDUCATION INFORMATION Instructions: Medication Leaflets: Follow up: With: Address: When: Coleen Mcgee [facility] [address], [place] [id number] Business (1) Comments: Call physician if symptoms worsen Keep scheduled appointment MEDICATION LIST Comment:[facility]Main [facility] PACU II Recordon 40-06-2815Mxxp OR PACU II RecordPACU Phase II Document Type FT Summary Primary Physician: Coleen Grajeda MD Finalized Date/Time: 04/14/19 17:54:42 Pt. Name: SHANTEL MELENDEZ Fatimah Roland/Sex: 1960 Male Med Rec #: [id number] Physician: Coleen Grajeda MD Financial #: [id number] Pt. Type: A Room/Bed: [place] [address] Admit/Disch: 04/14/19 12:59:23 - Institution: Case Times [...] Signatures Signed By: Lizeth Rush RN 04/14/19 17:54NoOhioHealthMain OR Preoperative Recordon 35-75-2943Lzbd OR Preoperative RecordPreOp Document Type FT Summary Primary Physician: Coleen Grajeda MD Finalized Date/Time: 04/14/19 15:14:03 Pt. Name: SHANTEL MELENDEZ Fatimah Ashraf./Sex: 1960 Male Med Rec #: [id number] Physician: Coleen Grajeda MD Financial #: [id number] Pt. Type: Room/Bed: [place] [address] Admit/Disch: 04/14/19 12:59:23 - Institution: Case Times [...] Signatures Signed By: Johnathon Karimi RN 04/14/19 15:14[facility] JacksonPatient Education - Texton 57-65-9392Opbwkzx Education - TextHolzer Medical Center – Jackson Vital Signs Date TimeVital SignValuePerforming AugaxunzrSaiaduxq40-59-7652 14:04-0400Body yiwqnj303.72 cmBreIPDIA DO Work Phone: [facility]10-15-2025 14:04-0400 Body mass index (BMI) [Ratio]24.1 kg/w9XpicjIgY [employer] DO Work Phone: [facility]10-15-2025 14:04-0400 Body vurtrm47.12 kgBrett Kuns DO Work Phone: [facility]10-15-2025 14:04-0400 Diastolic blood dbajbrnx94 mm[Hg]Griselda Kuns DO Work Phone: 1(246)[address]10-15-2025 14:04-0400 Heart peix098 /minBrett Kuns DO Work Phone: 1(504)2-[address] [place], [place] 3211810-15-2025 14:04-0400 Respiratory rate16 /minBrett Kuns DO Work Phone: 1(096)[address]10-15-2025 14:04-0400 SaO2% (BldA) [Mass fraction]99 %Griselda Kuns DO Work Phone: 1(360)[address]10-15-2025 14:04-0400 Systolic blood dfygtqgf075 mm[Hg]Griselda Kuns DO Work Phone: 1(089)[address] [place], [place] 1585309-04-2025 11:25-0400 Body .72 cmBrett Kuns DO Work Phone: 1(733)[address] [place], [place] 1585309-04-2025 11:25-0400 Body mass index (BMI) [Ratio]24.1 kg/o0Mocox Kuns DO Work Phone: 1(563)[address] [place], [place] 1585309-04-2025 11:25-0400 Body ayitpc72.12 kgBrett Kuns DO Work Phone: 1(466)[address]09-04-2025 11:25-0400 Diastolic blood ivowvrop30 mm[Hg]Griselda Kuns DO Work Phone: 1(781)[address]09-04-2025 11:25-0400 Heart yioc885 /minBrett Kuns DO Work Phone: 1(106)[address]09-04-2025 11:25-0400 Respiratory rate16 /minBrett Kuns DO Work Phone: 1(160)[address] [place], [place] 3211809-04-2025 11:25-0400 SaO2% (BldA) [Mass fraction]98 %Rgiselda Kuns DO Work Phone: [facility]09-04-2025 11:25-0400 Systolic blood mm[Hg]Griselda Kuns DO Work Phone: 1([phone]08-20-2025 14:41-0400 Body mass index (BMI) [Ratio]24.18 kg/n4OmopxmvOziel Cadena MD Work Phone: 1(347)[address]08-20-2025 14:41-0400Body .12 kgOziel Cadena MD Work Phone: 1(271)[address]08-20-2025 14:41-0400Diastolic blood eoapvacn59 mm[Hg]Oziel Cadena MD Work Phone: 1(664)2-[address] [place], [place] [address]Dhbyglnvwp76-12-6657 14:41-0400Heart mcyc610 /min Oziel Cadena MD Work Phone: 1(443)3-[address] [place], [place] [address]Hylglwewfw49-21-3488 14:41-0400Systolic blood mm[Hg]Oziel Cadena MD Work Phone: 2(561)7-[address] [place], [place] [address]Kmymovmsmc82-38-9496 15:20-0400Body hfsaac560.72 cmKatykeith Mendezs DO Work Phone: 1(356)7-3903[facility]07-28-2025 15:20-0400 Body mass index (BMI) [Ratio]27 kg/c4Hdwhn Kuns DO Work Phone: [address] [place], [place] 4331607-28-2025 15:20-0400 Body .73 kgBrett Kuns DO Work Phone: 1(083)5-0551[facility]07-28-2025 15:20-0400 Diastolic blood erddwodw55 mm[Hg]Griselda Kuns DO Work Phone: [facility]07-28-2025 15:20-0400 Heart rate76 /minBrett Andreas DO Work Phone: [facility]07-28-2025 15:20-0400 Systolic blood bdfhelny116 mm[Hg]Griselda Kuns DO Work Phone: 1(882)2-82[facility]07-09-2025 14:12-0400 Body mass index (BMI) [Ratio]25.09 kg/l4PvnekcdOziel Cadena MD Work Phone: [facility] CenterPaxbqntzbu51-27-5955 14:12-0400Body nrrbyg39.84 kgOziel Cadena MD Work Phone: 1(675)6-[address] [place], [place] [address]Sfsmhdssej96-45-2282 14:12-0400Diastolic blood fawpnoaz32 mm[Hg]Oziel Cadena MD Work Phone: [address] [place], [place] [address]Idbpklrkpn88-92-8377 14:12-0400Heart rate85 /min Oziel Cadena MD Work Phone: 1(888)2-4436[facility] CenterAwljonsbns41-96-0541 14:12-0400Systolic blood mm[Hg]Oziel Cadena MD Work Phone: 1(562)0-74[facility] CenterDkddnnsdbl53-97-1795 14:04-0400Body wwrpdo672.72 cmBrett Kuns DO Work Phone: 1(977)3-6282[facility]06-04-2025 14:04-0400 Body vrjqftbjlen557.7 [degF]Griselda Kuns DO Work Phone: [facility]06-04-2025 14:04-0400 Heart rate96 /minBrett Kuns DO Work Phone: [facility]06-04-2025 14:04-0400 Respiratory rate18 /minBrett Kuns DO Work Phone: [facility]06-04-2025 14:04-0400 SaO2% (BldA) [Mass fraction]99 %Griselda Kuns DO Work Phone: [facility]06-02-2025 14:03-0400 Body omqfsm717.72 cmBrett Kuns DO Work Phone: 1(453)944-28[facility]06-02-2025 14:03-0400 Body mass index (BMI) [Ratio]26.3 kg/u3Lmrtq Kuns DO Work Phone: 1(018)[address]06-02-2025 14:03-0400 Body gkxydm90.47 kgBrett Kuns DO Work Phone: 1(933)1-[address] [place], [place] 3211806-02-2025 14:03-0400 Diastolic blood mm[Hg]Griselda Kuns DO Work Phone: 1(397)[address]06-02-2025 14:03-0400 Heart scis383 /minBrett Kuns DO Work Phone: 1(598)[address] [place], [place] 1585306-02-2025 14:03-0400 Systolic blood ajxoskvz394 mm[Hg]Griselda Kuns DO Work Phone: 1(451)[address]05-21-2025 10:30-0400 Diastolic blood rfrifprr85 mm[Hg]Griselda Kuns DO Work Phone: 1(507)[address]05-21-2025 10:30-0400 Heart rate71 /minBrett Kuns DO Work Phone: 1(346)[address]05-21-2025 10:30-0400 Respiratory rate20 /minBrett Kuns DO Work Phone: 5(621)7-[address] [place], [place] 3211805-21-2025 10:30-0400 SaO2% (BldA) [Mass fraction]98 %Griselda Kuns DO Work Phone: 1(968)1-[address] [place], [place] 3211805-21-2025 10:30-0400 Systolic blood pjuqsjpt622 mm[Hg]Griselda Kuns DO Work Phone: 1(398)[address]05-21-2025 07:12-0400 Body smuhpl445.72 cmBrett Kuns DO Work Phone: 1(570)0-[address] [place], [place] 3211805-21-2025 07:12-0400 Body vrzvas85.11 kgBrett Kuns DO Work Phone: 1(575)130-[address] [place], [place] 3211805-12-2025 09:57-0400 Body nxahdf324.72 cmBrett Kuns DO Work Phone: 1(618)5-[address] [place], [place] 3211805-12-2025 09:57-0400 Body mass index (BMI) [Ratio]26.4 kg/r8Tcosd Kuns DO Work Phone: 1(317)[address]05-12-2025 09:57-0400 Body gxqocq02.92 kgBrett Kuns DO Work Phone: 1(292)[address]05-12-2025 09:57-0400 Diastolic blood ileifaox71 mm[Hg]Griselda Kuns DO Work Phone: 1(994)[address]05-12-2025 09:57-0400 Heart rate64 /minBrett Kuns DO Work Phone: 1(640)[address]05-12-2025 09:57-0400 Respiratory rate18 /minBrett Kuns DO Work Phone: 1(367)[address]05-12-2025 09:57-0400 SaO2% (BldA) [Mass fraction]98 %Griselda Kuns DO Work Phone: 1(257)[address]05-12-2025 09:57-0400 Systolic blood iynpqewk389 mm[Hg]Griselda Kuns DO Work Phone: 1(423)[address]04-28-2025 09:06-0400 Body wxkgyf452.7 cmDoretha Harris MD Work Phone: [facility]04-28-2025 09:06-0400 Body mass index (BMI) [Ratio]25.54 kg/b4WktpvynDoretha Harris MD Work Phone: [facility]04-28-2025 09:06-0400 Body ecsiuf86.2 kgDoretha Harris MD Work Phone: [facility]04-28-2025 09:06-0400 Diastolic blood zcpopghc52 mm[Hg]Doretha Harris MD Work Phone: [facility]04-28-2025 09:06-0400 Heart rate75 /minDoretha Harris MD Work Phone: [facility]04-28-2025 09:06-0400 Systolic blood sacojejg454 mm[Hg]Doretha Harris MD Work Phone: 1(462)506-[address] [place], [place] 6194904-25-2025 13:05-0400 Body jayauf937.72 cmBrett Kuns DO Work Phone: 1(797)[address]04-25-2025 13:05-0400 Body mass index (BMI) [Ratio]25.4 kg/p4Xjsft Kuns DO Work Phone: 1(411)3-[address] [place], [place] 3211804-25-2025 13:05-0400 Body .74 kgBrett Kuns DO Work Phone: [facility]04-25-2025 13:05-0400 Diastolic blood idlavdju22 mm[Hg]Griselda Kuns DO Work Phone: 1(641)134-28[facility]04-25-2025 13:05-0400 Heart rate76 /minBrett Kuns DO Work Phone: [facility]04-25-2025 13:05-0400 Systolic blood etslhmjo88 mm[Hg]Griselda Kuns DO Work Phone: [facility]04-21-2025 18:42-0400 Diastolic blood cfjfoiqh71 mm[Hg]Griselda Kuns DO Work Phone: [facility]04-21-2025 18:42-0400 Heart rate80 /minBrett Kuns DO Work Phone: [facility]04-21-2025 18:42-0400 Respiratory rate16 /minBrett Kuns DO Work Phone: [facility]04-21-2025 18:42-0400 SaO2% (BldA) [Mass fraction]98 %Griselda Kuns DO Work Phone: 1(016)3-5970[facility]04-21-2025 18:42-0400 Systolic blood mrjfgxup323 mm[Hg]Griselda Kuns DO Work Phone: 1(926)8-7828[facility]04-21-2025 14:04-0400 Body wbvufz340.72 cmBrett Kuns DO Work Phone: 1(300)[address]04-21-2025 14:04-0400 Body mjcdlzeghcs15.2 [degF]Griselda Kuns DO Work Phone: 1(217)[address]04-21-2025 14:04-0400 Body fppdep77.9 kgBrett Kuns DO Work Phone: 1(919)0-[address] [place], [place] 3211804-05-2025 14:00-0400 Heart rate88 /minBrett Kuns DO Work Phone: 1(932)8-[address] [place], [place] 3211804-05-2025 14:00-0400 Respiratory rate20 /minBrett Kuns DO Work Phone: 1(498)6-[address] [place], [place] 3211804-05-2025 14:00-0400 SaO2% (BldA) [Mass fraction]93 %Griselda Kuns DO Work Phone: 1(091)[address] [place], [place] 3211804-05-2025 13:48-0400 Body ohvldzhzmwk38.4 [degF]Griselda Kuns DO Work Phone: 1(218)[address] [place], [place] 3211804-05-2025 13:48-0400 Diastolic blood gzjzelct81 mm[Hg]Griselda Kuns DO Work Phone: 1(904)3-[address] [place], [place] 3211804-05-2025 13:48-0400 Systolic blood qnrlpzku539 mm[Hg]Griselda Kuns DO Work Phone: 1(616)7-[address] [place], [place] 3211804-05-2025 10:55-0400 Body czaylv868.72 cmBrett Kuns DO Work Phone: 1(985)[address] [place], [place] 3211804-05-2025 10:55-0400 Body xjcpsu95.9 kgBrett Kuns DO Work Phone: 1(180)1-[address] [place], [place] 3211803-27-2025 10:46-0400 Body mass index (BMI) [Ratio]27.06 kg/r1SpdcpjbOziel Cadena MD Work Phone: 1(615)0-[address] [place], [place] [address]Oyqrayjgsn96-26-5532 10:46-0400Body xltozx15.74 kgOziel Cadena MD Work Phone: 0(158)[facility] [place], [place] [address]Gtfwmojpwv38-15-0709 10:46-0400Diastolic blood pmnkezfd45 mm[Hg]Oziel Cadena MD Work Phone: 3(396)9-[address] [place], [place] [address]Izcfvnypin15-92-6405 10:46-0400Heart rate61 /min Oziel Cadena MD Work Phone: 8(161)[address] [place], [place] [address]Hqvhiuzavr01-51-3289 10:46-0400Systolic blood eiomxdzy072 mm[Hg]Oziel Cadena MD Work Phone: 6(666)1-[address] [place], [place] [address]Zqpodbystw35-42-3436 09:22-0400Body slxeif121.72 cmBrett Kuns DO Work Phone: 1(963)[address]03-27-2025 09:22-0400 Body mass index (BMI) [Ratio]28.1 kg/j3Rxetm Kuns DO Work Phone: 1(454)0-[address] [place], [place] 3211803-27-2025 09:22-0400 Body zpdpjtbsnat94.6 [degF]Griselda Kuns DO Work Phone: 1(506)9-[address] [place], [place] 3211803-27-2025 09:22-0400 Body npvfus70 kgBrett Kuns DO Work Phone: 1(841)[address]03-27-2025 09:22-0400 Diastolic blood nyrbrzxs22 mm[Hg]Griselda Kuns DO Work Phone: 1(034)[address]03-27-2025 09:22-0400 Heart rate78 /minBrett Kuns DO Work Phone: 1(698)6-1813[facility]03-27-2025 09:22-0400 Respiratory rate16 /minBrett Kuns DO Work Phone: 1(946)7-[address] [place], [place] 4331603-27-2025 09:22-0400 SaO2% (BldA) [Mass fraction]98 %Griselda Kuns DO Work Phone: 1(953)7-[address] [place], [place] 3211803-27-2025 09:22-0400 Systolic blood smlisnlo100 mm[Hg]Griselda Kuns DO Work Phone: 1(421)[address]02-13-2025 13:26-0500 Body mass index (BMI) [Ratio]27.37 kg/f1ZmtqfbmOziel Cadena MD Work Phone: 1(314)7-[address] [place], [place] [address]Ozcbuafbld25-00-3031 13:26-0500Body .65 kgOziel Cadena MD Work Phone: 1(383)7-[address] [place], [place] [address]Yhfzwkttbg91-83-7290 13:26-0500Diastolic blood zsoxfszo14 mm[Hg]Oziel Cadena MD Work Phone: 1(517)1-[address] [place], [place] [address]Zsjpwuwzqo30-50-3723 13:26-0500Heart rate81 /min Oziel Cadena MD Work Phone: 1(410)2-[address] [place], [place] [address]Hhhtixyvlp08-15-8194 13:26-0500Systolic blood ebtzmodt507 mm[Hg]Oziel Cadena MD Work Phone: 1(300)4-[address] [place], [place] [address]Pteimvtptx75-72-9276 09:54-0500Body .72 cmBrett Andreas DO Work Phone: 1(427)3-[address] [place], [place] 3211801-16-2025 09:54-0500 Body mass index (BMI) [Ratio]28.4 kg/j4Hijux Andreas DO Work Phone: 1(838)[address] [place], [place] 3211801-16-2025 09:54-0500 Body sleoot53.82 kgBrett Kuns DO Work Phone: [facility]01-16-2025 09:54-0500 Diastolic blood etxnyzby62 mm[Hg]Griselda Kuns DO Work Phone: [facility]01-16-2025 09:54-0500 Heart rate81 /minBrett Kuns DO Work Phone: [facility]01-16-2025 09:54-0500 Respiratory rate18 /minBrett Kuns DO Work Phone: [facility]01-16-2025 09:54-0500 SaO2% (BldA) [Mass fraction]98 %Griselda Kuns DO Work Phone: [facility]01-16-2025 09:54-0500 Systolic blood pyopammz305 mm[Hg]Griselda Kuns DO Work Phone: [facility]01-15-2025 14:18-0500 Body mass index (BMI) [Ratio]28.28 kg/o7KsjyzgdOziel Cadena MD Work Phone: [facility] CenterEzjimajywh02-17-1847 14:18-0500Body .37 kgOziel Cadena MD Work Phone: [facility] CenterVjzkvnqszp79-96-6613 14:18-0500Diastolic blood lnxlwjhi07 mm[Hg]Oziel Cadena MD Work Phone: [facility] CenterBllkaalbec07-29-4413 14:18-0500Heart rate86 /min Oziel Cadena MD Work Phone: [facility] CenterYzpiocnncf29-36-0579 14:18-0500Systolic blood umgitehj617 mm[Hg]Oziel Cadena MD Work Phone: [facility] CenterFntoscvhad31-95-1692 08:56-0500Body rgymqu645.7 cmDoretha Harris MD Work Phone: [facility]01-13-2025 08:56-0500 Body mass index (BMI) [Ratio]27.37 kg/u0ItetzggDoretha Harris MD Work Phone: 1(102)[address] [place], [place] 4314601-13-2025 08:56-0500 Body uyzsfl48.65 kgDoretha Harris MD Work Phone: 1(425)[address] [place], [place] 4314601-13-2025 08:56-0500 Diastolic blood fdjzygjt12 mm[Hg]Doretha Harris MD Work Phone: 1(847)[address] [place], [place] 4314601-13-2025 08:56-0500 Heart rate75 /minDoretha Harris MD Work Phone: 1(463)[address] [place], [place] 4314601-13-2025 08:56-0500 Systolic blood mnblibto327 mm[Hg]Doretha Harris MD Work Phone: 1(369)[address] [place], [place] 4314612-04-2024 14:04-0500 Body ezbyok262.7 cmOziel Cadena MD Work Phone: 1(102)[address] [place], [place] 8051512-04-2024 14:04-0500Body mass index (BMI) [Ratio]26.46 kg/h8ViemxvxOziel Cadena MD Work Phone: 1(450)[address] [place], [place] 8051512-04-2024 14:04-0500Body rxuqyr68.93 kgOziel Cadena MD Work Phone: 1(237)[address] [place], [place] 8051512-04-2024 14:04-0500Diastolic blood vikfrwzf29 mm[Hg]Oziel Cadena MD Work Phone: 1(534)[address] [place], [place] 8051512-04-2024 14:04-0500Systolic blood jyntetml545 mm[Hg]Oziel Cadena MD Work Phone: 1(238)[address] [place], [place] 8051511-11-2024 09:48-0500Body .72 [facility] 09:48-0500Body mass index (BMI) [Ratio]27 kg/h0CfxskifrsK[facility] Health11-11-2024 09:48-0500Body weight 80.73 kgK[facility]11-11-2024 09:48-0500Diastolic blood vukafzrc75 mm[Hg][facility]11-11-2024 09:48-0500Heart rate61 /[facility]11-11-2024 09:48-0500Respiratory rate18 /[facility]11-11-2024 09:48-0260TdF0% (BldA) [Mass fraction]96 %[facility]11-11-2024 09:48-0500 Systolic blood aczaailn214 mm[Hg][facility]10-24-2024 12:11-0400Body gatdryawoft40.1 [degF]Doretha Harris MD Work Phone: 1(347)[address]10-24-2024 12:11-0400 Diastolic blood gwslhoqf59 mm[Hg]Doretha Harris MD Work Phone: 1(076)[address] [place], [place] 3678410-24-2024 12:11-0400 Heart rate82 /Luanne Harris MD Work Phone: 1216)[address]10-24-2024 12:11-0400 Respiratory rate17 /Luanne Harris MD Work Phone: 1216)[address]10-24-2024 12:11-0400 Systolic blood wsyavxxb021 mm[Hg]Doretha Harris MD Work Phone: 1216)[address]10-24-2024 09:20-0400 SaO2% (BldA) [Mass fraction]93 %Doretha Harris MD Work Phone: 1216)134-[address] [place], [place] 6194910-23-2024 15:07-0400 Body rzgjncgqdtn77Uuxoskl Zhou MD Work Phone: 1216)[address]10-23-2024 15:07-0400 SaO2% (BldA) [Mass fraction]100 %Doretha Harris MD Work Phone: 1(874)[address]10-23-2024 14:47-0400 Body [address]nutlltwblq00.[address] [facility] CampusComment on above:Performed By: #### [id number] #### TITUS Mercado ([id number]) [facility] ([facility]) [id number] [place], [place] [address]10-23-2024 14:47-3459VuZ8% (BldA) [Mass fraction]100 %SHIMON [facility] CampusComment on above:Performed By: #### [id number] #### TITUS Mercado ([id number]) [facility] ([facility]) [address] [place] [id number] 12:11-0400Body .7 cmDoretha Harris MD Work Phone: 1(040)[address]10-23-2024 12:11-0400 Body mass index (BMI) [Ratio]27.12 kg/c1MbclpdaDoretha Harris MD Work Phone: 1(969)[address]10-23-2024 12:11-0400 Body pqhuaf54.9 kgDoretha Harris MD Work Phone: 1(479)[address]10-15-2024 10:47-0400 Body ikqhhe451.72 [facility]10-15-2024 10:47-0400Body mass index (BMI) [Ratio]27.2 kg/x0VsvnudjpuKettering Health10-15-2024 10:47-0400Body jrauoy17.19 kgK[facility]10-15-2024 10:47-0400Diastolic blood awgyvwin44 mm[Hg][facility] 04-01-2024 10:47-0400Heart rate50 /[facility] 04-01-2024 10:47-0400Respiratory rate16 /[facility] 04-01-2024 10:47-9650JoV5% (BldA) [Mass fraction]99 %[facility]10-15-2024 10:47-0400Systolic blood mm[Hg][facility]08-15-2024 10:240400Body ivptrj886.72 cmK[facility]08-15-2024 10:24-0400Body mass index (BMI) [Ratio]27.3 kg/m2 [facility]08-15-2024 10:24-0400Body pqzdno80.64 kg [facility]08-15-2024 10:24-0400Diastolic blood zhdnhgep92 mm[Hg][facility]08-15-2024 10:24-0400Heart rate75 /min [facility]08-15-2024 10:24-0400Respiratory rate18 /min [facility]08-15-2024 10:24-1680CjY4% (BldA) [Mass fraction]98 %[facility]08-15-2024 10:24-0400Systolic blood fnnphdti892 mm[Hg][facility]07-18-2024 13:36-0400 Body qymhec277.7 cmDoretha Harris MD Work Phone: 1(244)648-[address] [place], [place] 6194907-18-2024 13:36-0400 Body mass index (BMI) [Ratio]27.43 kg/o6LejbbsiDoretha Harris MD Work Phone: 1(082)813-[address] [place], [place] 0360407-18-2024 13:36-0400 Body oqvalu52.83 kgDoretha Harris MD Work Phone: [facility]07-18-2024 13:36-0400 Diastolic blood rtjxoupb80 mm[Hg]Doretha Harris MD Work Phone: 1(976)636-[address] [place], [place] 0360407-18-2024 13:36-0400 Heart rate80 /minDoretha Harris MD Work Phone: 1(882)724-[address] [place], [place] 0360407-18-2024 13:36-0400 Systolic blood djhwffof334 mm[Hg]Doretha Harris MD Work Phone: 1(449)979-[address] [place], [place] 0360406-27-2024 10:00-0400 Body mass index (BMI) [Ratio]27.1 kg/k4OfjomzxHelder Jack MD Work Phone: [facility]06-27-2024 10:00-0400 Body zrhqeuqojtn77.5 [degF]Helder Jack MD Work Phone: [facility]06-27-2024 10:00-0400 Body opplmj99.83 Mackenzie Jack MD Work Phone: [facility]06-27-2024 10:00-0400 Diastolic blood aeegxqwz96 mm[Hg]Helder Jack MD Work Phone: [facility]06-27-2024 10:00-0400 Heart rate92 /Rachel Jack MD Work Phone: [facility]06-27-2024 10:00-0400 Respiratory rate17 /Rachel Jack MD Work Phone: [facility]06-27-2024 10:00-0400 SaO2% (BldA) [Mass fraction]96 %Helder Jack MD Work Phone: [facility]06-27-2024 10:00-0400 Systolic blood fyabdciw649 mm[Hg]Helder Jack MD Work Phone: [facility]06-26-2024 13:08-0400 Body .7 cmRyan Milks PA-C Work Phone: [facility]06-26-2024 13:08-0400 Body mass index (BMI) [Ratio]26.91 kg/m2Ryan Milks PA-C Work Phone: 4(753)279-40[facility]06-26-2024 13:08-0400 Body fcyilh14.29 kgRyan Milks PA-C Work Phone: 7(764)112-24[facility]06-26-2024 13:08-0400 Diastolic blood rhaxjxrf19 mm[Hg]Solomon Milks PA-C Work Phone: [facility]06-26-2024 13:08-0400 Heart rate91 /Jarod Milks PA-C Work Phone: [facility]06-26-2024 13:08-0400 Systolic blood owdhsjtg934 mm[Hg]Solomon Milks PA-C Work Phone: [facility]06-17-2024 10:51-0400 Body piwdzt236.72 cmDO Griselda Kuns Work Phone: [facility]06-17-2024 10:51-0400 Body mass index (BMI) [Ratio]26.1 kg/m2DO Griselda Kuns Work Phone: [facility]06-17-2024 10:51-0400 Body arkjkw92.01 kgDO Griselda Kuns Work Phone: 0(887)[address] [place], [place] 4331606-17-2024 10:51-0400 Diastolic blood rfmqguvj97 mm[Hg]DO Griselda Kuns Work Phone: [facility]06-17-2024 10:51-0400 Heart rate97 /minDO Griselda Kuns Work Phone: [facility]06-17-2024 10:51-0400 Respiratory rate18 /minDO Griselda Kuns Work Phone: [facility]06-17-2024 10:51-0400 SaO2% (BldA) [Mass fraction]96 %DO Griselda Kuns Work Phone: [facility]06-17-2024 10:51-0400 Systolic blood zifzutqb347 mm[Hg]DO Griselda Kuns Work Phone: [facility]05-17-2024 09:49-0400 Body .6 cmVcourt Cole MD Work Phone: [facility]05-17-2024 09:49-0400Body mass index (BMI) [Ratio]27.38 kg/p9YdoncRacquel Cole MD Work Phone: [facility]05-17-2024 09:49-0400Body temperature 97.7 [degF]Racquel Cole MD Work Phone: [facility]05-17-2024 09:49-0400Body .7 kgRacquel Cole MD Work Phone: [facility]05-17-2024 09:49-0400Diastolic blood mm[Hg]Racquel Cole MD Work Phone: [facility]05-17-2024 09:49-0400Heart rate72 /min Racquel Cole MD Work Phone: [facility]05-17-2024 09:49-0400Respiratory rate 16 /minRacquel Cole MD Work Phone: [facility]05-17-2024 09:49-5257IqB3% (BldA) [Mass fraction]99 %Racquel Cole MD Work Phone: [facility]05-17-2024 09:49-0400Systolic blood fhipmczc513 mm[Hg]Racquel Cole MD Work Phone: [facility]05-13-2024 10:32-0400Body .72 cmDO Griselda Hastings Work Phone: [facility]05-13-2024 10:32-0400 Body mass index (BMI) [Ratio]26.6 kg/m2DO Griselda Hastings Work Phone: [facility]05-13-2024 10:32-0400 Body pouzms51.37 kgDO Griselda Hastings Work Phone: [facility]05-13-2024 10:32-0400 Diastolic blood lxphzhar90 mm[Hg]DO Griselda Hastings Work Phone: [facility]05-13-2024 10:32-0400 Heart rate71 /minDO Griselda Kuns Work Phone: [facility]05-13-2024 10:32-0400 Respiratory rate16 /minDO Griselda Kuns Work Phone: [facility]05-13-2024 10:32-0400 SaO2% (BldA) [Mass fraction]98 %DO Griselda Kuns Work Phone: [facility]05-13-2024 10:32-0400 Systolic blood xtvbnses319 mm[Hg]DO Griselda Kuns Work Phone: [facility]05-02-2024 09:02-0400 Diastolic blood xmmceevi16 mm[Hg]DO Griselda Kuns Work Phone: [facility]05-02-2024 09:02-0400 Systolic blood fqjkxvaj064 mm[Hg]DO Griselda Kuns Work Phone: [facility]05-02-2024 08:58-0400 Body ilrrlq558.72 cmDO Griselda Kuns Work Phone: [facility]05-02-2024 08:58-0400 Body mass index (BMI) [Ratio]26.6 kg/m2DO Griselda Kuns Work Phone: [facility]05-02-2024 08:58-0400 Body qiqbyi86.37 kgDO Griselda Kuns Work Phone: [facility]05-02-2024 08:58-0400 Heart rate57 /minDO Griselda Kuns Work Phone: [facility]05-02-2024 08:58-0400 Respiratory rate18 /minDO Griselda Kuns Work Phone: [facility]05-02-2024 08:58-0400 SaO2% (BldA) [Mass fraction]98 %DO Griselda Kuns Work Phone: [facility]04-19-2024 09:37-0400 Body yvrpre536.2 cmHelder Jack MD Work Phone: [facility]04-19-2024 09:37-0400 Body mass index (BMI) [Ratio]26.25 kg/m4OfiqtopHelder Jack MD Work Phone: [phone]04-19-2024 09:37-0400 Body xqygxqinpvz14.3 [degF]Helder Jack MD Work Phone: [phone] [place], [place] [id number] 09:37-0400 Body htaffu87.84 kgHelder Jack MD Work Phone: [phone])975-[address] [place], [place] 8603004-19-2024 09:37-0400 Diastolic blood mm[Hg]Helder Jack MD Work Phone: [phone])884-[address] [place], [place] [id number] 09:37-0400 Heart rate81 /Rachel Jack MD Work Phone: [facility]04-19-2024 09:37-0400 Respiratory rate16 /Rachel Jack MD Work Phone: [phone] [place], [place] [id number] 09:37-0400 SaO2% (BldA) [Mass fraction]99 %Helder Jack MD Work Phone: [phone] [place], [place] 7796304-19-2024 09:37-0400 Systolic blood takwagjs042 mm[Hg]Helder Jack MD Work Phone: [facility]03-20-2024 13:44-0400 Diastolic blood zeoinifg91 mm[Hg]DO Griselda Kuns Work Phone: [facility]03-20-2024 13:44-0400 Systolic blood yahmtihm243 mm[Hg]DO Griselda Kuns Work Phone: [facility]03-20-2024 13:41-0400 Body aubilg528.72 cmDO Griselda Kuns Work Phone: [facility]03-20-2024 13:41-0400 Body mass index (BMI) [Ratio]27.8 kg/m2DO Griselda GetGlues Work Phone: [facility]03-20-2024 13:41-0400 Body pwpepn83 kgDO Griselda Andreas Work Phone: [facility]03-20-2024 13:41-0400 Heart rate66 /minDO Griselda Kuns Work Phone: [address] [place], [place] 4331603-20-2024 13:41-0400 Respiratory rate18 /minDO Griselda Kuns Work Phone: [address] [place], [place] 4331603-20-2024 13:41-0400 SaO2% (BldA) [Mass fraction]99 %DO Griselda Hastings Work Phone: [facility]03-20-2024 11:58-0400 Body yyqrjy978.72 cmDO Griselda GetGlues Work Phone: [facility]03-20-2024 11:58-0400 Body mass index (BMI) [Ratio]27.3 kg/m2DO Griselda Andreas Work Phone: [facility]03-20-2024 11:58-0400 Body qsjticgimab96.8 [degF]DO Griseldakeith Mendezs Work Phone: [facility]03-20-2024 11:58-0400 Body lgistq72.64 kgDO Griselda Kuns Work Phone: [facility]03-20-2024 11:58-0400 Diastolic blood tcjvwesx74 mm[Hg]DO Griselda GetGlues Work Phone: [facility]03-20-2024 11:58-0400 Heart rate71 /minDO Griselda Kuns Work Phone: [facility]03-20-2024 11:58-0400 SaO2% (BldA) [Mass fraction]96 %DO Griselda Kuns Work Phone: [facility]03-20-2024 11:58-0400 Systolic blood jbufgzgk613 mm[Hg]DO Griselda Kuns Work Phone: [facility]02-28-2024 15:41-0500 Body .72 cmDO Griselda Kuns Work Phone: [facility]02-28-2024 15:41-0500 Body mass index (BMI) [Ratio]28.1 kg/m2DO Griselda Kuns Work Phone: [facility]02-28-2024 15:41-0500 Body qztvqu13.08 kgDO Griselda Kuns Work Phone: [facility]02-28-2024 15:41-0500 Diastolic blood kxgzryks17 mm[Hg]DO Griselda Kuns Work Phone: [facility]02-28-2024 15:41-0500 Heart rate62 /minDO Griselda Kuns Work Phone: [facility]02-28-2024 15:41-0500 Respiratory rate18 /minDO Griselda Kuns Work Phone: [facility]02-28-2024 15:41-0500 SaO2% (BldA) [Mass fraction]99 %DO Griselda Kuns Work Phone: [facility]02-28-2024 15:41-0500 Systolic blood otmzkfgj682 mm[Hg]DO Griselda Kuns Work Phone: [facility]02-15-2024 13:11-0500 Body .72 cmDO Griselda Kuns Work Phone: [facility]02-15-2024 13:11-0500 Body mass index (BMI) [Ratio]27.9 kg/m2DO Griselda Kuns Work Phone: [facility]02-15-2024 13:11-0500 Body cozoxs60.46 kgDO Griselda Kuns Work Phone: [facility]02-15-2024 13:11-0500 Diastolic blood hyhmkogx58 mm[Hg]DO Griselda Kuns Work Phone: [facility]02-15-2024 13:11-0500 Heart rate68 /minDO Griselda Kuns Work Phone: [facility]02-15-2024 13:11-0500 Respiratory rate16 /minDO Griselda Kuns Work Phone: [facility]02-15-2024 13:11-0500 SaO2% (BldA) [Mass fraction]97 %DO Griselda Kuns Work Phone: [facility]02-15-2024 13:11-0500 Systolic blood uondrjer540 mm[Hg]DO Griselda Kuns Work Phone: [facility]01-15-2024 09:30-0500 Body mqoklk192.72 cmGriselda Hastings Other [facility]01-15-2024 09:30-0500 Body mass index (BMI) [Ratio]28.28 kg/n4Ahyqt Andreas Other [employer] Other [id number] 09:30-0500Body .37 kgBrett Andreas Other [facility] Other 01-15-2024 09:30-0500Body .36 kgDO Griselda Kuns Work Phone: [facility]01-15-2024 09:30-0500 Diastolic blood awddlrwx86 mm[Hg]Griselda Andreas Other [facility]01-15-2024 09:30-0500 Respiratory rate16 /minBrett Andreas Other [employer] [facility] Other 01-15-2024 09:30-3690GmH9% (BldA) [Mass fraction]97 % Griseldakeith Mendezs Other [facility] Other 01-15-2024 09:30-0500Systolic blood lodmzowu579 mm[Hg] Griselda Andreas Other [facility]12-14-2023 13:45-0500 Body .72 cmBrekeith Andrearoge Other [facility]12-14-2023 13:45-0500 Body mass index (BMI) [Ratio]27.37 kg/z8MqaiaGriselda Hastings Other [facility] Other 12-14-2023 13:45-0500Body jiikhi73.65 kgBrett Darling Other [facility] Other 12-14-2023 13:45-0500Body pxyjxw68.64 kgDO Griselda Andreas Work Phone: [facility]12-14-2023 13:45-0500 Diastolic blood uxedjwwe93 mm[Hg]Griseldakeith Mendezs Other [facility]12-14-2023 13:45-0500 Respiratory rate18 /minBrett Andreas Other [facility] Other 12-14-2023 13:45-7763RpV4% (BldA) [Mass fraction]98 % Griselda Andreas Other [facility] Other 12-14-2023 13:45-0500Systolic blood mm[Hg] Griselda Kuns Other [facility]12-13-2023 11:15-0500 Body ulryhw020.72 cmTlbhavanaadonay Harvey Other [facility]12-13-2023 11:15-0500 Body mass index (BMI) [Ratio]27.52 kg/h0GhxhigjRuddy Harvey Other [employer] Other 12-13-2023 11:15-0500Body nkvbogcgrel77.8 [degF] Ruddy Ovalledoris Other [employer] Other 12-13-2023 11:15-0500Body .1 kgMakeithbhavanaadonay Harvey Other [facility]12-13-2023 11:15-0500 SaO2% (BldA) [Mass fraction]98 %Ruddy Ovalledoris Other [facility] Other 11-28-2023 13:20-0500Body nmhofl101.72 cmLinda Kamla Other [facility]11-28-2023 13:20-0500 Body mass index (BMI) [Ratio]27.52 kg/m1Omlhm Kamla Other [employer] Other [id number] 13:20-0500Body .1 kgLinda Kamla Other [facility]11-28-2023 13:20-0500 Diastolic blood tdtalbze94 mm[Hg]Lilliam Kamla Other [facility]11-28-2023 13:20-0500 Respiratory rate18 /minLinda Kamla Other [employer] Other 11-28-2023 13:20-8344DwG9% (BldA) [Mass fraction]98 % Lilliam Cason Other [facility] Other 11-28-2023 13:20-0500Systolic blood rpzwesnb599 mm[Hg] Lilliam Cason Other [facility]11-20-2023 13:16-0500 Diastolic blood tosyyrpm30 mm[Hg]DO Griselda Kuns Work Phone: [facility]11-20-2023 13:16-0500 Heart rate75 /minDO Griselda Kuns Work Phone: [facility]11-20-2023 13:16-0500 Respiratory rate16 /minDO Griselda Kuns Work Phone: [facility]11-20-2023 13:16-0500 SaO2% (BldA) [Mass fraction]96 %DO Griselda Kuns Work Phone: [facility]11-20-2023 13:16-0500 Systolic blood uidzcfmg704 mm[Hg]DO Griselda Kuns Work Phone: [facility]11-20-2023 10:30-0500 Inhaled oxygen flow rate3 L/minDO Griselda Kuns Work Phone: [facility]11-20-2023 08:29-0500 Body mlidtz006.72 cmDO Griselda Kuns Work Phone: [facility]11-20-2023 08:29-0500 Body .37 kgDO Griselda Kuns Work Phone: [facility]11-16-2023 09:15-0500 Body qanebg810.72 cmRuddy Harvey Other [facility] [employer] Other 11-16-2023 09:15-0500Body mass index (BMI) [Ratio] 27.06 kg/w7BezcvyeRuddy Harvey Other [facility] [employer] Other 11-16-2023 09:15-0500Body wiweczvqjcq28.8 [degF] Ruddy Wes Other [facility] [employer] Other 11-16-2023 09:15-0500Body hilxek18.74 kgMatthaylie Wes Other [facility] [employer] Other 11-16-2023 09:15-0500Diastolic blood bcumvcmg55 mm[Hg] Ruddy Harvey Other [facility] [employer] Other 11-16-2023 09:15-7126AhE7% (BldA) [Mass fraction]97 % Ruddy Harvey Other [facility] [employer] Other 11-16-2023 09:15-0500Systolic blood edjbnulf726 mm[Hg] Ruddy Wes Other [employer] Other 11-14-2023 10:30-0500Body ostljp968.72 cmGriselda Hastings Other [employer] Other 11-14-2023 10:30-0500Body mass index (BMI) [Ratio] 27.06 kg/n5AmyogGriselda Hastings Other [employer] Other 11-14-2023 10:30-0500Body .74 kgGriselda Hastings Other [employer] Other 11-14-2023 10:30-0500Diastolic blood vpkzaoai87 mm[Hg] Griselda Andreas Other [employer] Other 11-14-2023 10:30-0500Respiratory rate18 /minBrekeith Hastings Other [employer] Other 11-14-2023 10:30-6334IyI3% (BldA) [Mass fraction]96 % Griseldakeith Mendezs Other [employer] Other 11-14-2023 10:30-0500Systolic blood hhzmxggy245 mm[Hg] Griselda Andreas Other [employer] Other 10-25-2023 10:40-0400Body hrurrf698.72 cmLinda Kamla Other [employer] Other 10-25-2023 10:40-0400Body mass index (BMI) [Ratio] 26.67 kg/d9Xvzoe Kamla Other [employer] Other 10-25-2023 10:40-0400Body uvfvpk32.56 kgLinda Kamla Other [employer] Other 10-25-2023 10:40-0400Diastolic blood qaiwjozc34 mm[Hg] Lilliam Kamla Other [employer] Other 10-25-2023 10:40-1722HkJ9% (BldA) [Mass fraction]96 % Lilliam Kamla Other [employer] Other 10-25-2023 10:40-0400Systolic blood pwpaywne954 mm[Hg] Lilliam Cason Other [facility] Other [id number] 02:42-0400Diastolic blood mm[Hg] DO Rgiselda GetGlues Work Phone: [facility]10-04-2023 02:42-0400 Heart rate72 /minDO Griselda GetGlues Work Phone: [facility]10-04-2023 02:42-0400 Respiratory rate16 /minDO Griselda Kuns Work Phone: [facility]10-04-2023 02:42-0400 SaO2% (BldA) [Mass fraction]97 %DO Griselda GetGlues Work Phone: [facility]10-04-2023 02:42-0400 Systolic blood sgzqfoip813 mm[Hg]DO Griselda GetGlues Work Phone: [facility]10-04-2023 00:12-0400 Body .72 cmDO Griselda GetGlues Work Phone: [facility]10-04-2023 00:12-0400 Body fcnpvzelbvt45 [degF]DO Griselda GetGlues Work Phone: [facility]10-04-2023 00:12-0400 Body dutfqs35.37 kgDO Griselda GetGlues Work Phone: [facility]09-28-2023 10:30-0400 Body eajdjy283.72 cmBrekeith Minitrade Other [facility] Other 09-28-2023 10:30-0400Body mass index (BMI) [Ratio] 26.76 kg/k7Cwion GetGlues Other [facility] Other 09-28-2023 10:30-0400Body .83 kgBrett Andreas Other [employer] Other 09-28-2023 10:30-0400Diastolic blood awqahscn77 mm[Hg] Griselda Andreas Other [employer] Other 09-28-2023 10:30-0400Respiratory rate16 /minBrett Kuns Other [employer] Other 09-28-2023 10:30-5001UhJ9% (BldA) [Mass fraction]97 % Griseldakeith Mendezs Other [employer] Other 09-28-2023 10:30-0400Systolic blood enmqcpbb650 mm[Hg] Griselda Andreas Other [employer] Other 09-21-2023 10:00-0400Body .72 cmBrett Darling Other [employer] Other 09-21-2023 10:00-0400Body mass index (BMI) [Ratio] 27.18 kg/d2Hidtg Kuns Other [employer] Other 09-21-2023 10:00-0400Body dafkul19.1 kgBrett Andreas Other [employer] Other 09-21-2023 10:00-0400Diastolic blood mm[Hg] Griselda Kuns Other [employer] Other 09-21-2023 10:00-0400Respiratory rate16 /minBrett Kuns Other [employer] Other 09-21-2023 10:00-9719UnX1% (BldA) [Mass fraction]96 % Griselda Andreas Other [facility] Other 09-21-2023 10:00-0400Systolic blood zvsaeplh952 mm[Hg] Griselda Kuns Other [facility] Other 09-11-2023 14:13-0400Body dimbry289.72 cmDO Griselda Kuns Work Phone: [facility]09-11-2023 14:13-0400 Body gdcmeetwgsw12 [degF]DO Griselda Kuns Work Phone: [facility]09-11-2023 14:13-0400 Body aarznr48.6 kgDO Griselda Kuns Work Phone: [facility]09-11-2023 14:13-0400 Diastolic blood iqianxqa10 mm[Hg]DO Griselda Kuns Work Phone: [facility]09-11-2023 14:13-0400 Heart rate56 /minDO Griselda Kuns Work Phone: [facility]09-11-2023 14:13-0400 Respiratory rate18 /minDO Griselda Kuns Work Phone: [facility]09-11-2023 14:13-0400 SaO2% (BldA) [Mass fraction]96 %DO Grisleda Kuns Work Phone: [facility]09-11-2023 14:13-0400 Systolic blood qudyhyqq982 mm[Hg]DO Griselda Kuns Work Phone: [facility]06-20-2023 10:15-0400 Body attsuy979.72 cmBrett GetGlues Other [facility] Other 06-20-2023 10:15-0400Body mass index (BMI) [Ratio] 25.85 kg/y8FrptwGriselda Hastings Other [employer] Other 06-20-2023 10:15-0400Body daajkd87.11 kgBrekeith Hastings Other [employer] Other 06-20-2023 10:15-0400Diastolic blood plcozxzb40 mm[Hg] Griselda Hastings Other [employer] Other 06-20-2023 10:15-0400Respiratory rate16 /minGriselda Hastings Other [facility] Other 06-20-2023 10:15-5576JfN9% (BldA) [Mass fraction]96 % Griselda Hastings Other [employer] Other 06-20-2023 10:15-0400Systolic blood mm[Hg] Griselda Hastings Other [employer] Other 03-29-2023 10:57-0400Body qyxhpv538.6 cmScandie SAAVEDRA-C Work Phone: [facility]03-29-2023 10:57-0400Body temperature 97.39 [degF]Kelly SAAVEDRA-C Work Phone: [facility]03-29-2023 10:57-0400Body .34 kgSudisha Perez PA-C Work Phone: [facility]03-29-2023 10:57-0400Diastolic blood ysiicqrr59 mm[Hg]Kelly SAAVEDRA-C Work Phone: [facility]03-29-2023 10:57-0400Heart rate70 /min Kelly Cervantesxuannori PA-C Work Phone: [facility]03-29-2023 10:57-0400Respiratory rate 18 /minScandie Cervantescory PA-C Work Phone: [facility]03-29-2023 10:57-0524NzE5% (BldA) [Mass fraction]100 %Kelly Perez PA-C Work Phone: [facility]03-29-2023 10:57-0400Systolic blood hepqllet977 mm[Hg]Kelly Perez PA-C Work Phone: [facility]03-16-2023 11:15-0400Body .72 cmKatykeith Hastings Other [employer] Other [id number] 11:15-0400Body mass index (BMI) [Ratio] 26.79 kg/c5Zzacl Kuns Other [employer] Other 03-16-2023 11:15-0400Body gpqilf75.92 kgKatykeith Hastings Other [employer] Other 03-16-2023 11:15-0400Diastolic blood xapupsjq60 mm[Hg] Griselda Hastings Other [employer] Other 03-16-2023 11:15-0400Respiratory rate16 /minBrekeith MendezEnkata Technologies Other [employer] Other 03-16-2023 11:15-2884MeE8% (BldA) [Mass fraction]98 % Griselda Andrearoge Other [employer] Other 03-16-2023 11:15-0400Systolic blood zxvecwtj447 mm[Hg] Griselda Kuns Other [employer] Other 02-14-2023 10:30-0500Body wsdzqy196.72 cmBrett Kuns Other [employer] Other 02-14-2023 10:30-0500Body mass index (BMI) [Ratio] 27.27 kg/x6Srnrl Kuns Other [employer] Other 02-14-2023 10:30-0500Body giroec76.38 kgBrett Kuns Other [employer] Other 02-14-2023 10:30-0500Diastolic blood jtxukmxl70 mm[Hg] Griselda Kuns Other [employer] Other 02-14-2023 10:30-0500Respiratory rate16 /minBrett Kuns Other [employer] Other 02-14-2023 10:30-2826ZyS3% (BldA) [Mass fraction]99 % Griselda Kuns Other [employer] Other 02-14-2023 10:30-0500Systolic blood anjfpluq716 mm[Hg] Griselda Kuns Other [employer] Other 01-30-2023 09:45-0500Diastolic blood jqnjfdeq45 mm[Hg] DO Griselda Kuns Work Phone: [facility]01-30-2023 09:45-0500 Heart rate69 /minDO Griselda Kuns Work Phone: [facility]01-30-2023 09:45-0500 Respiratory rate16 /minDO Griselda GetGlueroge Work Phone: [facility]01-30-2023 09:45-0500 SaO2% (BldA) [Mass fraction]99 %DO Griselda GetGlueroge Work Phone: [facility]01-30-2023 09:45-0500 Systolic blood fqecqwze526 mm[Hg]DO Griselda GetGlueroge Work Phone: [facility]01-30-2023 07:58-0500 Body josakd910.72 cmDO Griselda GetGlueroge Work Phone: [facility]01-30-2023 07:58-0500 Body eetuws92.37 kgDO Griselda GetGlueroge Work Phone: [facility]01-11-2023 10:20-0500 Body ehtkyg051.72 cmDeborN4MD Blades Other [employer] Other 01-11-2023 10:20-0500Body mass index (BMI) [Ratio] 26.67 kg/t4Dhbehyd Blades Other [employer] Other 01-11-2023 10:20-0500Body .56 kgDeborN4MD Blades Other [employer] Other 01-11-2023 10:20-0500Diastolic blood kkusyuqt17 mm[Hg] Trish Blades Other [employer] Other 01-11-2023 10:20-0500Systolic blood uepmvznu661 mm[Hg] Trish Blades Other [employer] Other 12-09-2022 13:30-0500Body .72 cmGriselda Hastings Other [employer] [facility] Other 12-09-2022 13:30-0500Body mass index (BMI) [Ratio]26.7 kg/o9EyggcGriselda Hastings Other [employer] Other 12-09-2022 13:30-0500Body dovrtu39.65 kgGriselda Hastings Other [facility] Other 12-09-2022 13:30-0500Diastolic blood mm[Hg] Griselda Mendezs Other [facility] Other 12-09-2022 13:30-0500Respiratory rate18 /minGriselda Hastings Other [facility] Other 12-09-2022 13:30-5128SiJ3% (BldA) [Mass fraction]98 % Griselda Hastings Other [facility] Other 12-09-2022 13:30-0500Systolic blood mm[Hg] Griseldakeith Mendezs Other [facility] Other 10-31-2022 00:30-0400Diastolic blood fuajqvmq87 mm[Hg] DO Griselda Kuns Work Phone: [facility]10-31-2022 00:30-0400 Heart rate78 /minDO Griselda Kuns Work Phone: [facility]10-31-2022 00:30-0400 Respiratory rate16 /minDO Griselda Kuns Work Phone: [facility]10-31-2022 00:30-0400 SaO2% (BldA) [Mass fraction]97 %DO Griselda Kuns Work Phone: [phone])362-[address] [place], [place] 3211810-31-2022 00:30-0400 Systolic blood yrfmrtke028 mm[Hg]DO Griselda Kuns Work Phone: [phone]10-30-2022 19:45-0400 Body uwfflk995.72 cmDO Griselda Kuns Work Phone: [phone]10-30-2022 19:45-0400 Body ctdhvtodfwr09.1 [degF]DO Griselda Kuns Work Phone: [phone]10-30-2022 19:45-0400 Body psiqkg56 kgDO Griselda Kuns Work Phone: [phone] [place], [place] 1585310-20-2022 16:31-0400 Body juifwa506.72 cmDO Griselda Kuns Work Phone: [phone]10-20-2022 16:31-0400 Body rjkinqsdpvy74.1 [degF]DO Griselda Kuns Work Phone: 1(110)5-[address] [place], [place] 3211810-20-2022 16:31-0400 Body mitqqn35.37 kgDO Griselda Kuns Work Phone: [phone])[address]10-20-2022 16:31-0400 Diastolic blood szyfemoi212 mm[Hg]DO Griselda Kuns Work Phone: 1(809)1-[address] [place], [place] 3211810-20-2022 16:31-0400 Heart rate95 /minDO Griselda Kuns Work Phone: [phone](894)349-[address] [place], [place] 3211810-20-2022 16:31-0400 Respiratory rate19 /minDO Griselda Kuns Work Phone: [phone] [place], [place] 3211810-20-2022 16:31-0400 SaO2% (BldA) [Mass fraction]97 %DO Griselda Kuns Work Phone: [phone])271-[address] [place], [place] 3211810-20-2022 16:31-0400 Systolic blood tkutipwn911 mm[Hg]DO Griseldakeith Hastings Work Phone: [facility]09-29-2022 13:30-0400 Body xdipqe551.72 cmBrett Kuns Other [employer] Other 09-29-2022 13:30-0400Body mass index (BMI) [Ratio] 26.91 kg/s3Idjej Kuns Other [employer] Other 09-29-2022 13:30-0400Body dbehvh55.29 kgBrett Kuns Other [employer] Other 09-29-2022 13:30-0400Diastolic blood cwwizcfm59 mm[Hg] Griselda Andreas Other [employer] Other 09-29-2022 13:30-0400Respiratory rate16 /minBrett Darling Other [employer] Other 09-29-2022 13:30-4537NuA9% (BldA) [Mass fraction]97 % Griselda Andreas Other [employer] Other 09-29-2022 13:30-0400Systolic blood dsnsmgaf382 mm[Hg] Griselda Kuns Other [employer] Other 08-15-2022 12:00-0400Body fupyuh841.72 cmBrett Kuns Other [employer] Other 08-15-2022 12:00-0400Body mass index (BMI) [Ratio]26.3 kg/y4Utchz Kuns Other [employer] Other 08-15-2022 12:00-0400Body .47 kgBrett Darling Other [employer] Other 08-15-2022 12:00-0400Diastolic blood oyjumzkc33 mm[Hg] Griselda Andreas Other [employer] Other 08-15-2022 12:00-0400Respiratory rate16 /minBrekeith Hastings Other [employer] Other 08-15-2022 12:00-3310VwY5% (BldA) [Mass fraction]99 % Griseldakeith Hastings Other [employer] Other 08-15-2022 12:00-0400Systolic blood clyyahxg595 mm[Hg] Griselda Andreas Other [employer] Other 07-11-2022 11:00-0400Body ihbgsd700.72 cmBrekeith Hastings Other [employer] Other 07-11-2022 11:00-0400Body mass index (BMI) [Ratio] 26.61 kg/s0Stsah Kuns Other [employer] Other 07-11-2022 11:00-0400Body ujxzdq78.38 kgBrett Darling Other [employer] Other 07-11-2022 11:00-0400Diastolic blood uhjolefg55 mm[Hg] Griselda Kuns Other [employer] Other 07-11-2022 11:00-0400Respiratory rate16 /minBrekeith Hastings Other [employer] Other 07-11-2022 11:00-8994OkO3% (BldA) [Mass fraction]96 % Griseldakeith Hastings Other [employer] Other 07-11-2022 11:00-0400Systolic blood ufuynfbp120 mm[Hg] Griseldakeith Hastings Other [employer] Other 06-20-2022 10:15-0400Body zhziod539.72 cmBrekeith Hastings Other [employer] Other 06-20-2022 10:15-0400Body mass index (BMI) [Ratio] 269.71 kg/b0Zeizh Kunroge Other [employer] Other 06-20-2022 10:15-0400Body fowuiq758.69 kgBrekeith Hastings Other [employer] Other 06-20-2022 10:15-0400Diastolic blood mm[Hg] Griseldakeith Mendezs Other [employer] Other 06-20-2022 10:15-0400Respiratory rate18 /minBrekeith Hastings Other [employer] Other 06-20-2022 10:15-7601WmD2% (BldA) [Mass fraction]99 % Griseldakeith Mendezs Other [employer] Other 06-20-2022 10:15-0400Systolic blood umkpwzie084 mm[Hg] Griseldakeith Hastings Other [employer] Other 05-24-2022 11:15-0400Body omqjwi769.72 cmBrekeith Hastings Other [facility] Other 05-24-2022 11:15-0400Body mass index (BMI) [Ratio] 27.06 kg/m1HuampGriselda Hastings Other [facility] Other 05-24-2022 11:15-0400Body .74 kgGriselda Hastings Other [facility] Other 05-24-2022 11:15-0400Diastolic blood zkazxrfp59 mm[Hg] Griselda Mendezs Other [facility] Other 05-24-2022 11:15-0400Respiratory rate16 /minBrekeith Hastings Other [facility] Other 05-24-2022 11:15-7826RvS5% (BldA) [Mass fraction]97 % Griseldakeith Hastings Other [facility] Other 05-24-2022 11:15-0400Systolic blood dmauhjyb512 mm[Hg] Griseldakeith Hastings Other [facility] Other 05-19-2022 09:38-0400Body lixqpb728.51 cmGriselda Hastings Work Phone: [phone]nbp[facility]ywAsc[facility] Work Phone: 1(618) 987-839905-19-2022 09:38-0400Body mass index (BMI) [Ratio] 27.05 kg/z0Xpjqqkeith Hastings Work Phone: [phone]-QskuexhAsc[facility] Work Phone: [phone] 09:38-0400Body surface area Derived from formula1.91 y9CsbggGriselda Hastings Work Phone: [phone]) [phone]-MymdcehAsc[facility] Work Phone: 1([phone] 09:38-0400Body ojmkhgqldol03.2 [degF]Griselda Hastings Work Phone: [facility]-GcnmnxcAsc[facility] Work Phone: [phone] 09:38-0400Body khjzae18.65 kgGriselda Hastings Work Phone: [address] [place] [address] Work Phone: [phone] 09:38-0400Diastolic blood phyuxobj26 mm[Hg] Griselda Hastings Work Phone: [facility]zcnedAsc[facility] Work Phone: [phone] 09:38-0400Heart rate63 /minGriselda Hastings Work Phone: JN-WggfbmpAsc[facility] Work Phone: [phone] 09:38-0400Respiratory rate16 /minGriselda Hastings Work Phone: JB-UxyqcpiAsc[facility] Work Phone: [phone] 09:38-0737TwC0% (BldA) [Mass fraction]99 % Griselda Hastings Work Phone: GD-CvxfxnbAsc[facility] Work Phone: [phone] 09:38-0400Systolic blood bkmyvnlg566 mm[Hg] Griselda Hastings Work Phone: MA-TiwbrwiAsc[facility] Work Phone: [phone] 09:38-53004 1Bnatalya Hastings Work Phone: [phone]) [phone]-[facility]wvajsdAsc[facility] Work Phone: comment on above:[id number] 13:30-0400Body ulkfwq448.72 cmGriselda Hastings Other [employer] Other 05-17-2022 13:30-0400Body mass index (BMI) [Ratio] 26.61 kg/p4BvqxqGriselda Hastings Other [employer] Other 05-17-2022 13:30-0400Body oluvju87.38 kgGriselda Hastings Other [employer] Other 05-17-2022 13:30-0400Diastolic blood syuwsfcd96 mm[Hg] Griseldakeith Hastings Other [employer] Other 05-17-2022 13:30-0400Respiratory rate18 /minBrekeith Hastings Other [employer] Other 05-17-2022 13:30-8735ZhR1% (BldA) [Mass fraction]99 % Griseldakeith Hastings Other [employer] Other 05-17-2022 13:30-0400Systolic blood eahhjtnq493 mm[Hg] Griseldakeith Hastings Other [employer] Other 05-09-2022 09:45-0400Body .72 cmDanisurekha Schneider Other [employer] Other 05-09-2022 09:45-0400Body mass index (BMI) [Ratio] 26.76 kg/h1Irxyeisurekha Alatorres Other [facility] Other 05-09-2022 09:45-0400Body zfopps76.83 kgDanancysurekha Schneider Other [facility] Other 04-28-2022 09:50-0400Body pyvlao077 cmVcourt Cole MD Work Phone: [facility]04-28-2022 09:50-0400Body temperature 97.5 [degF]Racquel Cole MD Work Phone: [place] [address]-28-2022 09:50-0400Body fpngoa34.28 kgRacquel Cole MD Work Phone: [facility]04-28-2022 09:50-0400Diastolic blood uhmsgtgr52 mm[Hg]Racquel Cole MD Work Phone: [facility]04-28-2022 09:50-0400Heart rate70 /min Racquel Cole MD Work Phone: [place] [address]-28-2022 09:50-0400Respiratory rate 16 /minRacquel Cole MD Work Phone: [facility]04-28-2022 09:50-5581JoO0% (BldA) [Mass fraction]99 %Racquel Cole MD Work Phone: [facility]04-28-2022 09:50-0400Systolic blood mm[Hg]Racquel Cole MD Work Phone: [facility]04-04-2022 10:45-0400Body .72 cmGriselda Hastings Other [facility] Other 04-04-2022 10:45-0400Body mass index (BMI) [Ratio] 26.15 kg/p9AezbaGriselda Hastings Other [employer] Other 04-04-2022 10:45-0400Body lindkq02.02 kgBrett Kuns Other [employer] Other 04-04-2022 10:45-0400Diastolic blood kpgvcitw55 mm[Hg] Griselda Kuns Other [employer] Other 04-04-2022 10:45-0400Respiratory rate18 /minBrett Kuns Other [employer] Other 04-04-2022 10:45-2977ByN2% (BldA) [Mass fraction]99 % Griselda Kuns Other [employer] Other 04-04-2022 10:45-0400Systolic blood qgxpliav368 mm[Hg] Griselda Kuns Other [employer] Other 01-13-2022 13:30-0500Body kbannd192.72 cmBrett Kuns Other [employer] Other 10-28-2021 08:45-0400Body .72 cmBrett Kuns Other [employer] Other 10-28-2021 08:45-0400Body mass index (BMI) [Ratio] 25.85 kg/n1Wifiy Kuns Other [employer] Other 10-28-2021 08:45-0400Body tcfjxy50.11 kgBrett Kuns Other [employer] Other 10-28-2021 08:45-0400Diastolic blood mm[Hg] Griselda Hastings Other [place] [facility] Other 10-28-2021 08:45-0400Respiratory rate16 /minGriselda Hastings Other [facility] Other 10-28-2021 08:45-5448DeW7% (BldA) [Mass fraction]99 % Griselda Hastings Other [place] Other 10-28-2021 08:45-0400Systolic blood mm[Hg] Griselda Hastings Other [facility] Other Encounters Encounter DateEncounter TypeCare ProviderFacilityStart: 04-01-2025 End: 44-69-9571qoniqgcdhnRwflb Kuns DO Work Phone: [facility] Work Phone: Start: 04-01-2025 End: 21-29-0076Ymeubvy encounter procedureGriselda Hastings DO-[facility] [place] Work Phone: Start: 03-30-2025 End: 38-87-0516eqghvbqboeGbhjblv Vytautas Giedraitis MDFacility:PM [place] Start: 03-24-2025 End: 62-22-1998mrnlsedydrFTUDLIKK [facility]tart: 03-18-2025 End: 52-89-9733Aakqou flowsMarshal Cadena MD Work Phone: noms BM NEUROLOGYStart: 03-18-2025 End: 12-20-0198Vfmtptquintin Cadena MD Work Phone: noms BM NEUROLOGYStart: 03-18-2025 End: 72-90-3391foavznqaecYVVYTLW W BAUERNot AvailableComment on above:Other nerve root and plexus disorders (Primary Dx); Acute pain of left shoulder; Acute pain of right shoulderStart: 02-26-2025 End: 58-22-0026Fzvhhao encounter procedureGriselda Hastings DO-Ultrasound [facility] Work Phone: Start: 02-26-2025 End: 99-41-5294oxpfyindnrQqdza Kuns DO Work Phone: [facility] Work Phone: Start: 23-30-4160Pxfedur encounter procedureBrekeith Hastings DO Work Phone: [facility] Campustart: 02-19-2025 End: 89-95-3604kjciixftyuZryxo Kuns DO Work Phone: [facility] Work Phone: Start: 02-19-2025 End: 03-07-0269Vccgrmp encounter procedureGriselda Hastings DO-[facility] [place] Work Phone: Start: 80-32-5723Xfn-patient / Non-visitMelsam Arias DO-[facility] Work Phone: Start: 02-13-2025 End: 80-56-3345tohccpomedTMEQPACAMemorial Health System Marietta Memorial Hospitaltart: 02-09-2025 End: 10-88-5570jgwhoacgjiXfvedne Vytautas Giedraitis MDFacility:[facility] [place] Start: 02-04-2025 End: 20-14-8599Jaegmjgj SupportOziel Cadena MD Work Phone: [facility] [place] NeurologyComment on above:Acute pain of right shoulder (Primary Dx); Nerve root and plexus disorder, unspecified; Acute pain of left shoulderStart: 02-04-2025 End: 65-01-6010Dadcfh flowsheetOziel Cadena MD Work Phone: noms NEUROLOGYStart: 02-04-2025 End: 39-91-8935Dibkpd Preet Cadena MD Work Phone: noms BM NEUROLOGYStart: 31-52-7669Bbb-patient / Non-visitAndrius Roxy NORRIS-[facility] Work Phone: Start: 01-26-2025 End: 56-51-7479mjsohqkdjmNhqoouq Vytautas Roxy NORRISFacility:[facility] [place] Start: 01-12-2025 End: 64-48-9358ahdjzoiijmFpkyw Kuns DO Work Phone: [facility] Work Phone: Start: 01-12-2025 End: 67-63-1665Yewaiov encounter Jeremias Mullins APRN-[facility] Work Phone: Start: 01-08-2025 End: 56-38-6993Cnkgwm flowsheet[facility] Work Phone: noms SWS DERMStart: 01-08-2025 End: 39-18-7921Olnuwk flowsheetMethodist [facility] Hospital PA Work Phone: noms SWS DERMStart: 01-08-2025 End: 62-26-4149Hfiugt outpatient visit 15 minutesRyNorthwest Medical Center PA Work Phone: noms SWS DERMComment on above:Melanocytic nevus of trunk (Primary Dx); Seborrheic keratosis; Inflamed seborrheic keratosis; Actinic keratosis; Capillary angioma; History of SCC (squamous cell carcinoma) of skinStart: 01-08-2025 End: 36-63-3126yqqtmzlaxgMNJPX NORTHEIMNot AvailableStart: 12-29-2024 End: 31-68-1767sulypvixuuTODNLEH ZHOUNot AvailableStart: 12-24-2024 End: 57-63-6497Xpdybz Preet Cadena MD Work Phone: noms BM NEUROLOGYStart: 12-24-2024 End: 08-67-9066Bklltv flowsMarshal Cadena MD Work Phone: noms BM NEUROLOGYStart: 12-24-2024 End: 24-80-0713Znjsptcm SupportOziel Cadena MD Work Phone: noms [place] NeurologyComment on above:Nerve root and plexus disorder, unspecified (Primary Dx); Acute pain of left shoulderStart: 2024 End: 65-75-2340Utdmfgp encounter procedureBrett Kuns DO Work Phone: [facility] CtrStart: 2024 End: 68-48-7903cwdwdfazlmJsued Kuns DO Work Phone: [facility] Work Phone: Start: 11-19-2024 End: 74-74-5693cgzehoasyqYlexs Kuns DO Work Phone: [facility] Work Phone: Start: 11-19-2024 End: 60-83-1124Mxhxfhh encounter procedureBrett Kuns DO Work Phone: [facility] Work Phone: Start: 11-17-2024 End: 08-90-5713mknntlvryfKwrtm Kuns DO Work Phone: [facility] Work Phone: Start: 11-17-2024 End: 63-13-5971Lkkwarv encounter procedureBrett Kuns DO Work Phone: [facility] Work Phone: Start: 11-12-2024 End: 49-98-3992Jvxhsr Preet Cadena MD Work Phone: noms BM NEUROLOGYStart: 11-12-2024 End: 86-87-5704Dmeoukmagdalena Cadena MD Work Phone: noms BM NEUROLOGYStart: 11-12-2024 End: 64-19-0452Mgpemcqz SupportOziel Cadena MD Work Phone: noms SWS NEURComment on above:Nerve root and plexus disorder, unspecified (Primary Dx); Acute pain of left shoulderStart: 11-07-2024 End: 01-32-6577uwntpynlfvZJNUY ABHYANKARFacility:[facility] Campustart: 08-10-4640Quw-patient / Non-visitBrett Kuns DO Work Phone: [facility] Gastro Work Phone: Start: 11-05-2024 End: 53-61-4543Zjjbnyyrw to same day surgery centerBrett Andreas DO Work Phone: [facility]-Digestive Health Work Phone: Start: 11-05-2024 End: 09-86-7101spcztqhjjqNkal AsaadFacility:[facility] Start: 11-03-2024 End: 75-24-4918Uoqlbxzew encounterRacquel Cole MD Work Phone: Hematology/OncologyComment on above:OrdersStart: 49-86-6782Pru-patient / Non-visitBrett Kuns DO Work Phone: [facility] Work Phone: Start: 03-24-9262ovtkmbhvehDFSPS ABHYANKAR Facility:[facility] Campustart: 11-03-2024 End: 02-10-7301Yvehbcjeiv hospital visit by physicianArrival Time Radiology Work Phone: Radiology Pet CTComment on above: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]Start: 10-27-2024 End: 77-04-8488uzvujbnvnzRgumo Kuns DO Work Phone: [facility] Work Phone: Start: 10-27-2024 End: 33-53-0293Mkifpxy encounter procedureBrekeith Hastings DO Work Phone: [facility] Cardiology Work Phone: Start: 10-21-2024 End: 14-63-8876Glbpjaztty hospital visit by physicianRad External FilmEF RAD EXTERNAL FILM VIRTUALComment on above:ArrivedStart: 10-21-2024 End: 80-88-6935lrwekjbfhrCVDIWANUniversity Hospitals Beachwood Medical Centertart: 10-13-2024 End: 23-65-1741Mpgxyk outpatient visit 40 minutesXilara Harris MD Work Phone: [facility] LimaComment on above:Status post cervical spinal fusion (Primary Dx)Start: 10-13-2024 End: 48-51-4239ztkbyohjcdZJVUGPYTwo [facility] Hospital AmbulatoryStart: 10-10-2024 End: 12-96-8585lcqczvvgyrTpzmd Kuns DO Work Phone: [facility] Work Phone: Start: 10-10-2024 End: 09-66-6446Pfftxbq encounter procedureBrekeith Hastings DO Work Phone: [facility] Gastro Work Phone: Start: 10-10-2024 End: 38-68-9918Qmqalzt encounter procedureBrekeith Mendezs DO Work Phone: [facility]-XRay [facility] [place] Work Phone: Start: 10-10-2024 End: 44-09-7748kvpgzieozzZulew Kuns DO Work Phone: [facility] Work Phone: Start: 10-07-2024 End: 37-65-1397Zfkbaed encounter procedureBrekeith Mendezs DO Work Phone: [facility]-Lab [facility] [place] Work Phone: Start: 10-07-2024 End: 71-18-8599qdivmtmmduXxuqb Kuns DO Work Phone: [facility] Work Phone: Start: 10-06-2024 End: 88-66-0677Vtqpricxu department patient visitGriselda Andrearoge DO Work Phone: [facility]-Emergency Room Work Phone: Start: 09-22-2024 End: 48-28-9561kdtbqtagbtYmizozq Vytautas Giedraitis MDFacility:[facility] [place] Start: 09-20-2024 End: 25-18-8771Lrqndblri department patient visitGriselda Hastings DO Work Phone: [facility]-Emergency Room Work Phone: Start: 09-15-2024 End: 41-84-8410eqhnrxmoewUbnyofa Vytautas Giedraitis MDFacility:[facility] [place] Start: 09-11-2024 End: 96-45-0853Kvvqur flowsMarshal Cadena MD Work Phone: noms NEUROLOGYStart: 09-11-2024 End: 53-48-8800Lzqgjl flowsMarshal Cadena MD Work Phone: noms NEUROLOGYStart: 09-11-2024 End: 34-00-9304Wettrkcn SupportOziel Cadena MD Work Phone: noms SWS NEURComment on above:Nerve root and plexus disorder, unspecified (Primary Dx)Start: 09-11-2024 End: 89-21-3194Jeitqhn encounter procedureBrekeith Hastings DO Work Phone: [facility] Vascular Surg Work Phone: Start: 09-11-2024 End: 11-45-8944wuxdfrwhvfAllrf Kuns DO Work Phone: [facility] Work Phone: Start: 07-31-2024 End: 51-58-0844Ohgcjc Preet Cadena MD Work Phone: noms BM NEUROLOGYStart: 07-31-2024 End: 06-20-6772Zjrdji Preet Cadena MD Work Phone: noms BM NEUROLOGYStart: 07-31-2024 End: 10-52-5635Aogockmg SupportOziel Cadena MD Work Phone: noms SWS NEURComment on above:Nerve root and plexus disorder, unspecified (Primary Dx)Start: 07-28-2024 End: 10-18-8929sjzpalrsphAhvtibw Vytautas Giedraitis MDFacility:[facility] [place] Start: 07-07-2024 End: 33-85-4641xtituveckcYnfkwsd Vytautas Giedraitis MDFacility:[facility] [place] Start: 07-03-2024 End: 45-56-6311fkednxwhqsItwah Andreas DO Work Phone: [facility] Work Phone: Start: 07-03-2024 End: 34-39-9202Txmbqwu encounter procedureBrett Kuns DO Work Phone: [facility] GroupR[facility] Work Phone: Start: 07-02-2024 End: 32-27-9284Pocvcc Preet Cadena MD Work Phone: noms BM NEUROLOGYStart: 07-02-2024 End: 98-30-9719Klbnva Preet Cadena MD Work Phone: noms BM NEUROLOGYStart: 07-02-2024 End: 42-26-6175Cjbcyfij SupportOziel Cadena MD Work Phone: [facility] SWS NEURComment on above:Nerve root and plexus disorder, unspecified (Primary Dx)Start: 06-30-2024 End: 26-43-4097Zrhsak follow up visit related to original Nilesh Harris MD Work Phone: [facility]imaComment on above:Status post cervical spinal fusion (Primary Dx)Start: 06-30-2024 End: 48-08-6815pufwbsjagpSIADGABCrescent Medical Center [facility] AmbulatoryStart: 06-24-2024 End: 35-05-3813Hbbregu encounter procedureBrekeith Hastings DO Work Phone: [facility]-XRay [facility] Work Phone: Start: 06-24-2024 End: 10-27-1393cwkrcmhcwdDermu Kuns DO Work Phone: [facility] Work Phone: Start: 05-21-2024 End: 88-92-4183Qqilcn flowsheetOziel Cadena MD Work Phone: noms NEUROLOGYStart: 05-21-2024 End: 90-16-6950Azkobu flowsMarshal Cadena MD Work Phone: noms NEUROLOGYStart: 05-21-2024 End: 52-34-7454Qlcopuoo SupportBremadisyn Cadena MD Work Phone: noms [facility] NEURComment on above:Other nerve root and plexus disorders (Primary Dx); Cervical paraspinal muscle spasm; Cervical stenosis of spinal canalStart: 04-30-2024 End: 05-75-7733Gjkbdh follow up visit related to original Kd Narayanan PA-C Work Phone: [facility] HospitalComment on above:Cervical radiculopathy (Primary Dx); Status post cervical spinal fusion; Acute postoperative pain; Muscle spasms of neckStart: 04-30-2024 End: 51-81-6684hqyavvuxxfNFYA [facility] AmbulatoryStart: 04-28-2024 End: 10-92-9501trpxaughffOvtmzytzdThe Christ Hospital Work Phone: Start: 04-28-2024 End: 20-94-3735Znudbty encounter procedureRegino Physician Group-[facility] Cardiology Work Phone: Start: 04-09-2024 End: 33-07-2766xqljyuuxdjPJYLYLPUniversity Hospitals Beachwood Medical Centertart: 04-09-2024 End: 87-57-8601Djaxdmtsxe and management of inpatientXilara Harris MD Work Phone: [facility] 4Comment on above:Cervical radiculopathy (Primary Dx); Senile osteoporosisStart: 04-01-2024 End: 77-16-5663cabtnlxtyeUsgthyignThe Christ Hospital Work Phone: Start: 04-01-2024 End: 72-93-0389Lcjksco encounter procedureRegino Physician Group-[facility] [place] Work Phone: Start: 03-31-2024 End: 75-32-0130Umcujbyrwj hospital visit by physicianRad External FilmEF RAD EXTERNAL FILM VIRTUALComment on above:ArrivedStart: 03-31-2024 End: 57-60-6667kodsecxyvhKXYGXGMUniversity Hospitals Beachwood Medical Centertart: 03-26-2024 End: 73-93-7842licbhaiujeXTJJJOCUniversity Hospitals Beachwood Medical Centertart: 03-19-2024 End: 57-84-8155eqfulnafpiCTGEE [facility] Hospitaltart: 02-13-2024 End: 04-70-2897Nchmoazath hospital visit by physicianEly X-Ray [address] [place], [place] [address]Comment on above:Cervical radiculopathyStart: 02-13-2024 End: 83-07-5567xgauztucucYGGKWBWOur Lady of Mercy [facility] Start: 02-13-2024 End: 02-04-0439dltrtjgnxfIRLNXTNGreene Memorial Hospital Start: 02-11-2024 End: 42-91-1134fhmyqjmdflGBUWEYJ [facility]: 02-11-2024 End: 38-86-4682ngyuqoimwtFHKBFQN [facility] Hospitaltart: 02-11-2024 End: 18-13-6650Caywhmelyv hospital visit by physicianc [id number] Cr Nonv1 Holter/Ecg ResourceJefferson [facility] MatherComment on above:Cervical radiculopathy; Senile osteoporosisStart: 02-04-2024 End: 98-44-2649bmyxidvdwxDFFKIOhioHealth Berger Hospitaltart: 01-31-2024 End: 54-68-2948mxoisjdmwbGinceoftpAccess Hospital [facility] Work Phone: Start: 01-31-2024 End: 57-92-5709Jqnjuyq encounter procedureUnc Health [facility] Physician GroupRome Memorial Hospital Work Phone: Start: 01-03-2024 End: 97-53-3486Oopajj outpatient new 60 minutesDoretha Harris MD Work Phone: [facility] Geriatric CenterComment on above:Cervical radiculopathy (Primary Dx); Senile osteoporosisStart: 12-13-2023 End: 62-95-7911Immuaz outpatient visit 40 minutesHelder Jack MD Work Phone: [facility] HospitalsComment on above:Pontine glioma (Multi)Start: 12-13-2023 End: 46-91-1880cvokfphyoeMDQCNUB B NEWTONSelect Medical Specialty Hospital - Akrontart: 12-13-2023 End: 59-66-0616Gegsaahfnu hospital visit by physicianJim [facility] Mri 1[facility])Comment on above:Pontine glioma (Multi)Start: 12-13-2023 End: 71-36-5271lxzpmkqktlGZTRF K SOTAKSelect Medical Specialty Hospital - Akrontart: 12-12-2023 End: 35-39-2737Owqbch outpatient new 45 minutesSolomon Narayanan PA-C Work Phone: [facility] Geriatric CenterComment on above:Cervical radiculopathy (Primary Dx); Occipital neuralgia of left side; Balance problemStart: 12-03-2023 End: 66-34-3674mpnchggvjiBM Griselda Darling Work Phone: [facility] Work Phone: Start: 12-03-2023 End: 40-66-7235Dytbvxf encounter procedureDO Griselda Hastings Work Phone: [facility] Work Phone: Start: 11-02-2023 End: 19-33-1143Btefzr outpatient visit 25 minutesRacquel Cole MD Work Phone: Hematology/OncologyComment on above: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)Start: 10-29-2023 End: 85-25-2820vipxnywanoKY Griselda Hastings Work Phone: [facility] Work Phone: Start: 10-29-2023 End: 09-58-3404Oqwirza encounter procedureDO Griselda Hastings Work Phone: firBlink Messenger [facility] Work Phone: Start: 20-21-9566Pda-patient / Non-visitDO Griselda Hastings Work Phone: [facility] GroupWaldo [facility] Professional [facility] Work Phone: Start: 10-26-2023 End: 66-91-9753Izahhhjgov hospital visit by physicianArrival Time Radiology Work Phone: Radiology Pet CTComment on above: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]Start: 10-18-2023 End: 17-28-9074Ncxffin encounter procedureDO Griselda Hastings Work Phone: [facility] Cardiology Work Phone: Start: 10-09-2023 End: 21-11-1339pqjmgezsmiBB Griseldakeith Mendezs Work Phone: [facility] Work Phone: Start: 10-09-2023 End: 94-19-7654Fqdskpk encounter procedureDO Griselda Mendezs Work Phone: [facility]-XRay [facility] [place] Work Phone: Start: 10-05-2023 End: 03-26-2978Tsdiaj outpatient new 60 minutesHelder Jack MD Work Phone: [facility] HospitalsComment on above:Brainstem lesion (Primary Dx); Pontine glioma (Multi)Start: 09-19-2023 End: 60-25-8447Ztmvrstvgg hospital visit by physicianRad External FilmEF RAD EXTERNAL FILM VIRTUALComment on above:ArrivedStart: 09-05-2023 End: 97-77-8967plmzpvdejtBN Griselda Mendezs Work Phone: [facility] Work Phone: Start: 09-05-2023 End: 37-69-7422Jxlhaxq encounter procedureDO Griselda Mendezs Work Phone: [facility] Work Phone: Start: 09-05-2023 End: 56-81-4427yzyfehangpCL Griselda Mendezs Work Phone: [facility] Work Phone: Start: 09-05-2023 End: 55-85-8747Ategwmx encounter procedureDO Griselda Hastings Work Phone: [facility] Work Phone: Start: 08-15-2023 End: 16-72-5823Ytmafwc encounter procedureDO Griselda Mendezs Work Phone: [facility] [place] Work Phone: Start: 08-02-2023 End: 90-68-6722hkfbhcjyhlTW Griselda Kuns Work Phone: [facility] Work Phone: Start: 08-02-2023 End: 82-69-6654Wdlykhq encounter procedureDO Griselda Kuns Work Phone: [facility] [place] Work Phone: Start: 39-62-2289Uezns abstractingNikole Mota COILED TUBING SUPERVISOR Work Phone: noms [facility] NEURO 210Start: 89-72-0630Zgmorl flowsheet Nikole Mota COILED TUBING SUPERVISOR Work Phone: noms BM NEUROLOGYStart: 11-27-9352Oealzz flowsheet Nikole Mota COILED TUBING SUPERVISOR Work Phone: noms NEUROLOGYStart: 07-18-2023 End: 19-38-8719mgiqxemuneLQBTUGAdventHealth Altamonte Springstart: 07-02-2023 End: 16-58-6373jvjmprgurvYmzit Kuns Other [facility] Other Start: 48-14-8518Qlvxxi outpatient visit 25 minutes Griselda Lemus [facility] CenteraliaStart: 07-02-2023 End: 30-11-8578Trbsowb encounter procedureDO Griselda Kuns Work Phone: [facility] [place] Work Phone: Start: 05-31-2023 End: 04-19-2120cttfsdejonBwcrw Kuns Other [facility] Other Start: 12-51-3936Vgqauo outpatient visit 25 minutes Griselda Lemus [facility] CenteraliaStart: 65-66-7815Tenqrp outpatient visit 15 minutesRuddy Pollard Vascular SurgeryStart: 05-30-2023 End: 25-83-3968vyfnldmfhyLB Griselda Mendezs Work Phone: [employer] [facility] Other Start: 05-30-2023 End: 37-82-7224Nmyknti encounter procedureDO Griselda Andreas Work Phone: [facility] VascularStart: 05-30-2023 End: 73-17-0120Moufsqs encounter procedureDO Griseldakeith Mendezs Work Phone: [facility] Work Phone: Start: 05-15-2023 End: 29-65-1731itndjtgkroNhjds Kamla Other [facility] [place] [facility] Other Start: 79-05-0772Xfgtzr outpatient visit 25 minutes Lilliam CasonFPG CardiologyStart: 77-56-3911Xujufspxo encounterLinda GlynngeFPG Referral CoordinatorStart: 05-15-2023 End: 39-36-6816Rkklahf encounter procedureDO Griselda Darling Work Phone: [facility] Work Phone: Start: 05-07-2023 End: 11-29-4253Exjeqxwop to same day surgery centerDO Griselda Hastings Work Phone: [facility]-Interventional Radiology Work Phone: Start: 05-07-2023 End: 97-25-8852khqrztwdcyJP Griselda Kuns Work Phone: [facility] Work Phone: Start: 05-04-2023 End: 13-93-1978vraqnzjdblED Griselda Kuns Work Phone: [facility] Work Phone: Start: 05-04-2023 End: 35-79-3608Ipoihkx encounter procedureDO Griselda Hastings Work Phone: [facility]-CT Scan [facility] [place] Work Phone: Start: 05-03-2023 End: 60-06-2000odhsorypxpZehfekt Langenberg Other [facility] Other Start: 37-08-8360Rshhbq outpatient new 45 minutes Ruddy Pollard Vascular SurgeryStart: 75-01-3105Eehyruxpj encounter Ruddy Pollard Referral CoordinatorStart: 05-01-2023 End: 50-36-7098jzbwldrvvwPilre Kuns Other [facility] [place] [facility] Other Start: 74-47-3529Jbawec outpatient visit 25 minutes Griselda Lemus Family Medicine [place]Start: 04-25-2023 End: 46-28-4453ahnstfnlveFE Griseldakeith Hastings Work Phone: [facility] Work Phone: Start: 04-25-2023 End: 60-12-5238Hkkqxze encounter procedureDO Griselda Hastings Work Phone: [facility]-Ultrasound [facility] [place] Work Phone: Start: 04-12-2023 End: 06-05-5581fprezqeruvXhpey Kamla Other [employer] Other Start: 03-52-3584Cdkzqrlim encounterLinda Tito CardiologyStart: 04-11-2023 End: 39-50-0094awoleqypajXwhxm Kamla Other [employer] Other Start: 40-19-9786Mftlop outpatient new 45 minutesLinda Tito CardiologyStart: 04-10-2023 End: 68-08-7992ysvoklemkrGpecq Kuns Other [employer] Other Start: 50-84-9213Gbqbxkuqb encounterGriselda Lemus Family Medicine [place]Start: 03-30-2023 End: 11-52-4656nuusmrawtcRG Griselda Mendezs Work Phone: [facility] Work Phone: Start: 03-30-2023 End: 02-42-4751Buzpqde encounter procedureDO Griselda Hastings Work Phone: [facility]-Lab [facility] [place] Work Phone: Start: 03-21-2023 End: 60-28-4241Fspsykykb department patient visitDO Griselda Mendezs Work Phone: [facility]-Emergency Room Work Phone: Start: 03-15-2023 End: 70-35-1844ynooutdxfwSveln Andreas Other [employer] Other Start: 44-43-7571Kvnhlw outpatient visit 25 minutes Griseldakeith Lemus Family Medicine [place]Start: 03-08-2023 End: 49-53-9091lyztrfgzepUdzdz Kuns Other [employer] Other Start: 40-88-6609Qubfoy outpatient visit 25 minutes Griseldakeith Lemus Family Medicine [place]Start: 02-26-2023 End: 14-95-5329Yiucyswvn department patient visitDO Griselda Hastings Work Phone: [facility]-Emergency Room Work Phone: Start: 87-64-9088ujkkwfhyooUyulatoryDr. BRET HDEZ Facility:UNKNOWNStart: 12-05-2022 End: 03-75-5434vjtwkzeayxCyzpv Kuns Other [facility] Other Start: 32-55-5090Racerx outpatient visit 25 minutes Griselda AndrearogeSAM Family Medicine [place]Start: 11-15-2022 End: 96-69-6947yagfvsrgyzCV Griselda Hastings Work Phone: [facility] Work Phone: Start: 11-15-2022 End: 06-66-5976Dkvzjgw encounter procedureDO Griselda Hastings Work Phone: [facility]-MRI [address] Work Phone: Start: 10-27-2022 End: 83-99-8245Zlykshabsy hospital visit by physicianArrival Time Radiology Work Phone: Radiology Pet CTComment on above:Malignant neoplasm of head, 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]Start: 10-24-2022 End: 40-29-4986yukbxsnkjgKT Griselda Hastings Work Phone: [facility] Work Phone: Start: 10-24-2022 End: 93-66-9939Axkvfut encounter procedureDO Griselda Hastings Work Phone: [facility]-Lab [place] Work Phone: Start: 09-28-2022 End: 37-25-7204hxxcymgybqXJMK R SULLINGERFacility:[facility] HospitalStart: 09-22-2022 End: 01-18-9606Ivsadojpnj hospital visit by physicianJonelle Hernandez (I-Stat/3t) Work Phone: RadiologyComment on above: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]Start: 57-84-0326Afkfdyxcq encounterScandie Perez PA-C Work Phone: [facility] CenterComment on above:Patient QuestionStart: 09-13-2022 End: 09-20-1189Xtfnsjq encounter procedureScandie Perez PA-C Work Phone: [facility] CenterComment on above:NPH (normal pressure hydrocephalus) (HCC) (Primary Dx)Start: 08-31-2022 End: 08-46-2657ohxrqbnlgeXpcrp Kuns Other [employer] Miew Other Start: 91-80-9762Miodxw outpatient visit 25 minutes Griselda Lemus [facility] CastaliaStart: 08-01-2022 End: 43-10-0432dfrssjnmfwHulqn Kuns Other [employer] Other Start: 92-26-5361Ebeuex outpatient visit 25 minutes Griselda Lemus [facility] CastaliaStart: 07-17-2022 End: 21-11-6780knyahwxqsiZB Griseldakeith Mendezs Work Phone: [facility] Work Phone: Start: 07-17-2022 End: 08-57-2194Jcpnqsy encounter procedureDO Griselda Kuns Work Phone: [facility]-XRay [place] Work Phone: Start: 07-14-2022 End: 35-72-9499Ammxhxi encounter procedureDO Griseldakeith Mendezs Work Phone: [facility]-CT Scan [place] Work Phone: Start: 06-28-2022 End: 76-84-0737tuhbwrofwgOydeswp Blades Other noDealstruck Miew Other start: 24-07-4424Dznsgh outpatient new 45 minutes Trish Aleman [facility] NeurosurgeryStart: 05-26-2022 End: 16-37-6280sberqfgdqlEpzum Kuns Other [employer] Other Start: 77-19-7496Cuwrjn outpatient visit 25 minutes Griselda Lemus [facility] [place]Start: 05-17-2022 End: 56-96-5364znodeoxeiqEN Griselda Kuns Work Phone: [facility] Work Phone: Start: 05-17-2022 End: 37-05-8509Kpgglefesd RecurringDO Griselda Kuns Work Phone: [facility]-Physical Therapy [address] RdStart: 99-36-5645Jggblfqata RecurringDO Griselda Kuns Work Phone: [facility]-Physical Therapy [address] RdStart: 04-16-2022 End: 30-78-8026Whosjxbnx department patient visitDO Griselda Hastings Work Phone: [facility]-Emergency RoomStart: 04-10-2022 End: 74-37-7697hccorbwrfmKxiyj Kuns Other [employer] Other Start: 37-61-9512Pqzgsimae encounterGriselda Lemus [facility] CastaliaStart: 04-06-2022 End: 16-41-3516Bjklsmbom department patient visitDO Griselda Hastings Work Phone: [facility]-Emergency RoomStart: 23-58-4950Jlqbkifrx encounterAsya Reynolds RNHematology/OncologyComment on above:AppointmentStart: 03-22-2022 End: 37-60-7716rstechqbojSxord Kuns Other [employer] Other Start: 56-74-6804Ncdxlatlm encounterGriselda Lemus [facility] CastaliaStart: 03-16-2022 End: 78-79-3079oecbbiqyibDhuqt Kuns Other [employer] Other Start: 27-63-2856Opkhll outpatient visit 25 minutes Griseldakeith Lemus [facility] CastaliaStart: 75-65-2530Ejvvddrvx encounterSelf Les Brain Tumor CenterComment on above:Triage (Internal Referral--old) Start: 03-09-2022 End: 62-14-4047slcsgccpsoFajmy Kuns Other noDealstruck Miew Other Start: 98-61-9737Jjztsdkwo encounterBrett AndrearogeSKYLARG [facility] CastaliaStart: 03-07-2022 End: 03-50-3799bafdiwdbxvWolws Kuns Other [facility] M[facility] Other Start: 70-45-4935Pkefdvlti encounterBrett AndreaMarcusG Family Medicine CastaliaStart: 31-01-9431Eilbelaxx encounterBrett AndrearogeFPG Family [facility] [place]aliaStart: 03-03-2022 End: 80-56-6596ybqsgqsbxpQO Griselda Kuns Work Phone: [facility] M[facility] Other Start: 03-03-2022 End: 77-14-5799Ccuyqglwja RecurringDO Griselda Kuns Work Phone: [facility]-Physical Therapy [address] RdStart: 70-69-6089Vioqnblciz RecurringDO Griselda Kuns Work Phone: [facility]-Physical Therapy [address] RdStart: 02-07-2022 End: 96-04-9819ferbqtyjzqFwcsp Kuns Other [employer]Deal[employer] Miew Other Start: 45-33-8382Iovcbicqo encounterBrett AndrearogeFPG [facility] [place]Start: 01-30-2022 End: 74-55-6509lxfkqnorpdEeiqe Kuns Other [employer] Other Start: 90-44-9525Xcgals outpatient visit 25 minutes Griselda DarlingFPG [facility] [place]Start: 01-12-2022 End: 79-85-4404liaxcrwcgbMrgwf Kuns Other [facility] Miew Other Start: 65-77-0512Btevnivzp encounterBrett KunsFPG [facility] [place]Start: 12-26-2021 End: 35-66-6444jqjoxvibshZwgop Kuns Other [facility] M[facility] Other Start: 25-11-1690Ohgnbi outpatient visit 25 minutes Griselda DarlingFPG [facility] [place]Start: 12-23-2021 End: 09-61-3660kacmharcogJtawv Kuns Other [facility] Miew Other Start: 87-63-2053Qkkwxgehc encounterBrett KunsFPG [facility] [place]Start: 12-05-2021 End: 33-92-2078tonvhboyqoYnqlg Kuns Other [facility] M[facility] Other Start: 42-97-7140Vipvpi outpatient visit 25 minutes Griselda DarlingFPG [facility] CastaliaStart: 78-60-6873Gjawqzvga encounterBrett KunsFPG [facility] [place]Start: 11-22-2021 End: 92-66-2269ebpirtsrpjJpzqx Kuns Other [facility] M[facility] Other Start: 60-26-2787Qckryqdka encounterBrett KunsFPG [facility] [place]aliaStart: 06-86-4805Xbwgew outpatient visit 15 minutesGriselda Mendezs Work Phone: [phone]-Wvrstnzekkjy-[place] Work Phone: Start: 11-09-2021 End: 48-73-2419ubbwsoulhrEyvlw Kuns Other [facility] Miew Other Start: 07-56-5233Ufltluahc encounterGriselda MendezrogeBristol County Tuberculosis Hospital CastaliaStart: 11-08-2021 End: 12-36-7021edrjuoevmsNvhpe Kuns Other [facility] Miew Other Start: 95-49-8070Mvidkd outpatient visit 25 minutes Griseldakeith HastingsENCOMPASS [facility] Family [facility] CastaliaStart: 76-67-3612Mdaliv consultation new/estab patient 60 minGriselda Hastings Work Phone: [phone]-EuusqrpAscension [facility] Work Phone: start: 11-01-2021 End: 80-76-7036pttkayzugjJjojj Kuns Other [facility] Miew Other Start: 97-76-4473Sdfrdt outpatient visit 25 minutes Griseldakeith HastingsBristol [facility] CastaliaStart: 10-31-2021 End: 07-72-4139ulqgjaebshNlkfbv Elskens Other [facility] Miew Other start: 25-46-7204Srzktwgyy encounterDadionicio MataG [facility] NeurosurgeryStart: 10-27-2021 End: 30-22-8680mnnnnrohnoEnwsu Abhyankar MD Work Phone: Hematology/OncologyComment on above: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); Lung nodules; Malignant neoplasm of head, face and neck (HCC)Start: 10-27-2021 End: 36-44-6419Tlkycglpfstg consultation with Radha Cole MD Work Phone: SANDUSKYStart: 10-24-2021 End: 36-43-0075spzszibbgqDoqzfi Elskens Other [facility] Miew Other start: 23-41-8276Hzdeou outpatient new 30 minutes Sheng EsperanzaG [facility] NeurosurgeryStart: 75-68-5683Ecxwpfalh encounter Racquel Cole MD Work Phone: Cancer Appts MCComment on above:Referral Information (Neurosurgery)Start: 10-13-2021 End: 12-15-0754ouftmvxoudCegio Abhyankar MD Work Phone: Hematology/OncologyComment on above:Glioma of brain (HCC) (Primary Dx); Lung nodules; Primary squamous cell carcinoma of head and neck (HCC)Start: 10-13-2021 End: 76-66-4943Yvvgwtz encounter Bernard Cole MD Work Phone: SANDUSKYStart: 10-06-2021 End: 72-43-6216lridxxcyxxXikfv Kuns Other [employer] Other Start: 01-60-2667Dwexspuug encounterAsya Kumar RN Hematology/OncologyComment on above:ResultsStart: 10-06-2021 End: 02-90-5735Snnpddyhja hospital visit by physicianArrival Time Radiology Work Phone: Radiology Pet CTComment on above:Malignant neoplasm of head, 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]Start: 09-29-2021 End: 26-46-8764twkybweksqCqvzf Kuns Other [employer] Other Start: 84-29-2628Uykauqlsb encounterBrett Allan Kathy Primary CareStart: 09-27-2021 End: 96-02-6940vcypxskrsxHogqg Kuns Other [employer] Other Start: 24-28-6441Amagdpzwh encounterBrekeith Lemus Kathy Primary CareStart: 09-19-2021 End: 25-57-7588txssrxrjmiIcuev Kuns Other [employer] Other Start: 34-61-1403Vqspnv outpatient visit 25 minutes Griselda AnrdeasFPG [facility] [place]Start: 09-12-2021 End: 60-45-4583boyabiwwtwDyyxx Kuns Other [employer] Other Start: 04-87-3171Vcbyryhqp encounterBrett KunsFPG [facility] [place]Start: 09-08-2021 End: 69-56-2169ygnsgpyewwBqpjs Kuns Other [employer] M[employer] Other Start: 19-30-1018Ovtqakjra encounterBrett KunsFPG [facility] [place]Start: 06-30-2021 End: 72-80-1397oqhgjgaiezJvhfh Kuns Other [facility] M[facility] Other Start: 39-76-3929Bhrsyx outpatient visit 15 minutes Griselda KunsFPG [facility] [place]Start: 61-94-6017Ritwkeiij encounterBrett KunsFPG [facility] [place]Start: 06-29-2021 End: 59-67-8607zilzcughdmMywus Kuns Other [employer] M[employer] Other Start: 49-88-9843Gryozth evaluation of patient and reportBrett KunsFPG [facility] [place]Start: 04-19-2021 End: 67-55-6008xbwrqxkpgyDcoxw Kuns Other [employer] Other Start: 63-74-6844Atlcasp evaluation of patient and reportBrett KunsFPG [facility] [place]aliaStart: 84-95-7002Vjmzitatr encounter Griselda KunsFPG [facility] [place]Start: 09-21-6218Yxucag outpatient visit 15 minutesBrett KunsFPG [facility] [place]aliaStart: 10-01-2020 End: 07-54-9091Fgmljbm encounter procedureGriselda Hastings Work Phone: [phone]-TatqvfcqqovdyufdlaAigch: 09-20-2020 End: 17-68-0072Xfwpoai encounter procedureGriselda Hastings-[facility] CenterStart: 09-13-2020 End: 58-07-2479Ghecyrv encounter procedureGriselda Hastings-XRay [facility] Procedures DateProcedureProcedure DetailPerforming ClinicianStart: 41-26-8600Sygyh brachial pressure indexBrekeith Hastings DO Work Phone: Start: 01-08-2025 End: 31-40-3076VGSFGERSUDW SKIN LESIONRylee Salvador SAAVEDRA Work Phone: Start: 80-94-2717Doibe chest X-rayGriselda Hastings DO Work Phone: Start: 80-74-9287Jmhgl Strep (POC)Griselda Hastings DO Work Phone: Start: 11-69-4098IEZ (POC)Griselda Hastings DO Work Phone: Start: 86-45-4541DorsuluyulbvsgcnzysccazahqJvtfy Kuns DO Work Phone: Start: 39-94-1075Ml soft tissue neck w/contrast materialVivenori Cole MD Work Phone: Start: 05-95-6264Uo thorax w/contrast materialVivenori Cole MD Work Phone: Start: 66-30-0692Tyuny count complete auto&auto difrntl wbcMindy Harpreet Hagan PA-C Work Phone: Start: 25-73-2540Yqqtv Interpretation of outside study Doretha Harris MD Work Phone: start: 46-80-6335T-ray of cervical spineGriselda Hastings DO Work Phone: Start: 12-29-1983Wweyniaj tomography of abdomen and pelvis with contrastBre Minitrade DO Work Phone: Start: 13-90-4050PQ of soft tissues of neck with contrast Minitrade DO Work Phone: Start: 59-05-0690Oqbbnkfojcy Panel (PCR)Griselda [employer] Work Phone: Start: 27-54-5338Uugag chest X-ray [employer] Work Phone: Start: 91-66-6609Cxmmt brachial pressure indexBre [employer] Work Phone: Start: 40-39-8702A-ray of cervical spineBre [employer] Work Phone: Start: 96-93-8880Rwvhy metabolic panel calcium total Chicho Bryan MD Work Phone: [phone]: 36-12-2859Siuzh spine cervical 2 or 3 views Nate Alvarez MD Work Phone: [phone]: 35-26-3990MSEDU OXIMETRY, Savannah Cheek MD Work Phone: [phone]: 46-95-4238TR tomography Unspecified body region Doretha Harris MD Work Phone: [phone]: 42-34-6433Nmtbpfni bldAngela M Capp CAA Work Phone: [phone]: 04-09-2024 End: 31-55-4475Dexfvs ant interbody decompress cervical belw l7Pnohchzlara Harris MD Work Phone: [phone]: 08-81-4373Rvtyj typing serologic rh (d)Doretha Harris MD Work Phone: [phone]: 96-75-1747Icfnz Interpretation of outside study Doretha Harris MD Work Phone: [phone]: 66-61-8466Gmq bone density study 1/> sites axial skelDoretha Harris MD Work Phone: start: 70-21-4100Gvj routine ecg w/least 12 lds trcg only w/o i&rXiaofeneeta Harris MD Work Phone: start: 30-87-2754Poo brain brain stem w/o w/contrast Bo Heaton PA-C Work Phone: start: 38-53-7162Kx soft tissue neck w/contrast Liudmila Cole MD Work Phone: Start: 23-45-1064Zc thorax w/contrast Liudmila Cole MD Work Phone: Start: 17-34-1892Fltjz count complete auto&auto difrntl wbcRacquel Cole MD Work Phone: Start: 29-47-4513Wgayrntbcgi Panel (PCR)DO Griselda Minitrade Work Phone: Start: 10-99-4593Hnrsk chest X-rayDO Griselda Minitrade Work Phone: Start: 93-05-7725Dzkat Interpretation of outside study Ayah Gross MD Work Phone: Start: 44-20-0587Iwylu brachial pressure indexDO Griselda Minitrade Work Phone: Start: 73-39-4701Ngiyn limb angiographyDO Griselda Minitrade Work Phone: Start: 37-99-4356LQ angiography of headDO [employer] Work Phone: Start: 26-69-8154GV angiography of neck vesselsDO [employer] Work Phone: Start: 91-95-8608Bzope volume recorder pneumoplethysmographyDO Griselda Minitrade Work Phone: Start: 14-71-8575XMSF Antigen (LFIA)DO Griselda Minitrade Work Phone: Start: 64-27-8827VK lumbar spine wo conDO Griselda Hastings Work Phone: Start: 28-37-7747SD pre/post mri xrayDO Griselda Hastings Work Phone: Start: 84-30-1256Bv thorax w/contrast Liudmila Cole MD Work Phone: Start: 28-02-1923Zw soft tissue neck w/contrast Liudmila Cole MD Work Phone: Start: 70-41-3199Utxyr count complete auto&auto difrntl wbcRacquel Cole MD Work Phone: Start: 60-36-3410Had brain brain stem w/o w/contrast Chai Perez PA-C Work Phone: Start: 42-21-2941OC of head without contrastDO Griselda Hastings Work Phone: Start: 70-32-5389Fuzrw chest X-rayDO Griselda Hastings Work Phone: Start: 59-14-8681MX cervical spine without contrastDO Griselda Hastings Work Phone: Start: 23-36-6563Kstxa depression screening assessment Racquel Cole MD Work Phone: Start: 79-61-2875Vt soft tissue neck w/contrast Liudmila Cole MD Work Phone: Start: 38-07-6559Pz thorax w/contrast Liudmila Cole MD Work Phone: Start: 59-41-3007Xgsfq count complete auto&auto difrntl wbcRacquel Cole MD Work Phone: Start: 78-47-4128Ehixr depression screening assessment Asya Engelson RNStart: 84-86-3584Ruoub chest X-rayGriselda MendezsExcision of melanomaBrekeith Hastings Work Phone: Plan of Treatment DateCare ActivityDetailAuthorStart: 85-33-1942SJA Vaccine (1 - 1-dose 75+ series)RSV Vaccine (1 - 1-dose 75+ series)[facility]: 04-10-2027 Diabetes ScreeningDiabetes ScreeningWayne HealthCare Main Campustart: 92-98-0057Lxuljyps ScreeningDiabetes ScreeningWayne HealthCare Main Campustart: 27-24-0428Euxjhnnho for osteoporosisBone Density [facility] HospitalStart: 01-08-2026 End: 44-96-0403Atwdbca encounter procedureNOMS SWS DERMStart: 04-30-2025 End: 04-46-8215Jcdzynfw Dwacutu0504/30/2025 2:00 PM EST Clinical Support [facility] [address] [phone] Oziel Cadena MD [address] [place] [address] [facility] NeurologyStart: 04-06-2025 End: 41-73-6174Bhyqrkf encounter /20/2025 9:30 AM EDT Office Visit [facility] [address] [place] [address] [address] [place] [address] Doretha Harris MD [address] [place] [address] [facility]: 03-18-2025 End: 08-67-4551Kubaxgef Wleqzvo0903/18/2025 2:20 PM EDT Clinical Support [facility] [address] [facility] [address] [place] [phone] Oziel Cadena MD [address]man [address] [place] [address] [facility] NeurologyStart: 03-18-2025 End: 80-70-5438Hxgkwegq Dpyuwwu0903/18/2025 11:30 AM EDT Clinical Support NOMR[facility] [address] [place] [phone] Oziel Cadena MD [address] [facility] [address] Rothman [address] [place] [address] ArrivedTRENT Shay NeurologyComment on above:ArrivedStart: 55-24-0354Vwinu brachial pressure indexTrinity Health System West Campustart: 61-29-2133Euzydntvg vaccinationNOUT HealthcareStart: 02-04-2025 End: 00-42-9256Agrdxkuz SupportNOMS SWS NEURComment on above:ArrivedStart: 01-08-2025 End: 52-56-6172Zyqjcxo encounter procedureNOMS SWS DERMComment on above:Arrived Start: 01-01-2025 End: 74-82-6952Ckruesd encounter dmuhokbll97/17/2025 10:30 AM EDT Office Visit [facility] [address] [place] [phone] Anahi Franco PA [address] [place] [address] [facility] SWS DERMStart: 12-24-2024 End: 99-85-4902Msfxxnqe SupportNOMS SWS NEURComment on above:ArrivedStart: 11-12-2024 End: 95-13-1021Kogcrkxf SupportNOMS SWS NEURComment on above:ArrivedStart: 11-07-2024 End: 42-69-4370Nhdovp-up encounterHematology/OncologyComment on above:[address] and labStart: 97-63-4641[facility]wstkglgpK[facility] Start: 11-03-2024 End: 43-45-6260Qttaliwavpnwc metabolic 2000 panel - Serum or PlasmaCOMPREHENSIVE METABOLIC PANEL Lab Routine 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) Expected: 11/03/2024 (Approximate), Expires: 02/02/2025[facility] Work Phone: Comment on above:Expected: 11/03/2024 (Approximate), Expires: 02/02/2025Start: 11-03-2024 End: 06-22-5253Ztnknej encounter szefkxcho83/19/2025 9:00 AM EDT Appointment Radiology Pet CT [address] [place] [address] [place] [address] Ct Chest and neck with contrast and labRadiology Pet CTComment on above:Ct Chest and neck with contrast and labStart: 11-01-2024 End: 18-47-7705QCZ W Auto Differential panel - BloodCOMPLETE BLOOD COUNT AND DIFFERENTIAL Lab Routine 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) Expected: 11/01/2024 (Approximate), Expires: 11/01/2024[facility] ClinicComment on above:Expected: 11/01/2024 (Approximate), Expires: 11/01/2024Start: 11-01-2024 End: 53-74-2922Wrrhzddtsfjgp metabolic 2000 panel - Serum or PlasmaCOMPREHENSIVE METABOLIC PANEL Lab Routine 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) Expected: 11/01/2024 (Approximate), Expires: 11/01/2024[facility] Comment on above:Expected: 11/01/2024 (Approximate), Expires: 11/01/2024Start: 11-01-2024 End: 16-19-8015GJ Chest W contrast IVCT CHEST W IVCON Radiology Routine 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) Expected:11/01/2024 (Approximate), Expires: 12/01/2024[facility] ClinicComment on above:Expected: 11/01/2024 (Approximate), Expires: 12/01/2024Start: 11-01-2024 End: 55-83-6397AD Neck W contrast IVCT NECK SOFT TISSUE W IVCON Radiology Routine 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) Expected: 11/01/2024 (Approximate), Expires: 12/01/2024[facility] Work Phone: Comment on above:Expected: 11/01/2024 (Approximate), Expires: 12/01/2024Start: 03-35-3010H-ray of cervical spineXR cervical spine 2V [facility] Campustart: 73-10-2157SC Cervical spine 2 Views [facility] Campustart: 06-53-7238MCDKJGVN SCREENDIABETES SCREEN [facility] Main Campustart: 09-29-2024 End: 17-87-9164Rjwamdc encounter gsyouhvgh87/14/2025 11:00 AM EDT Office Visit [facility] [address] [place] [address] [place] [address] Doretha Harris MD [address] [facility], [address] [place] [address] [facility]: 09-11-2024 End: 00-43-8902Spbpoedp Vhifzku1209/11/2024 10:40 AM EDT Clinical Support [facility] [address] [place] [address] Oziel Cadena MD [address] [facility] [address] [place], [place] [id number] [facility] SWS NEURStart: 19-86-6562Nuiet brachial pressure indexUS ankle/arm indicesTrinity Health System West Campustart: 07-31-2024 End: 81-32-5333Htgudizt SupportNOMS SWS NEURComment on above:ArrivedStart: 07-02-2024 End: 33-32-0813Xkwpbfuj SupportNOMS SWS NEURComment on above:ArrivedStart: 06-30-2024 End: 27-58-8444MJ Cervical spine 2 or 3 ViewsXR cervical spine 2-3 views Imaging Routine Status post cervical spinal fusion Expected: 06/30/2024, Expires: 06/30/2025[facility] Service Area Work Phone: Comment on above:Expected: 06/30/2024, Expires: 06/30/2025Start: 06-30-2024 End: 19-73-3532Jvebzzp encounter procedureKindred Hospital LimaStart: 05-21-2024 End: 50-07-8782Dmlvpipc Qvmnovo5605/21/2024 2:00 PM EST Clinical Support [facility] [address] [place] [address] Oziel Cadena MD [address] [place] [address] ArrivedNOMS SWS NEURComment on above:ArrivedStart: 05-16-2024 End: 98-07-7147Xhelfts encounter drkgkixrg03/29/2024 9:15 AM EST Office Visit [facility] [address] [facility] [address] [place] [address] Doretha Harris MD [address] [facility],[address] [place], [place] [address] [facility]ima[facility]: 05-02-2024 End: 88-56-9014Fgtgitm encounter procedureJefferson [facility] [place] Start: 04-30-2024 End: 56-19-1578FY Cervical spine 2 or 3 ViewsXR cervical spine 2-3 views Imaging Routine Cervical radiculopathy Status post cervical spinal fusion Expected: 04/30/2024, Expires: 04/30/2025[facility] Service Area Work Phone: Comment on above:Expected: 04/30/2024, Expires: 04/30/2025Start: 04-30-2024 End: 50-59-6633Xrsrvbq encounter grqnmuoft74/13/2024 1:00 PM EST Office Visit [facility] [address] [facility] [address] [place] [address] Solomon Narayanan PA-C [address] [place] [address] [facility]: 04-09-2024 End: 96-08-2704Zdjjqjsnx to same day surgery jxapca0904/09/2024 7:45 AM EDT - 04/09/2024 12:25 PM EDT Surgery [facility] [place] [address] [place] [address] Doretha Harris MD [address] [facility], [address] [place] [address] Fusion Spine Anterior Cervical and Discectomy C5-6, C6-7 [44354 (CPT )][facility] [place] ORComment on above:Fusion Spine Anterior Cervical and Discectomy C5-6, C6-7 [10584 (CPT )]Start: 04-09-2024 End: 47-41-3676Sdawjp ant interbody decompress cervical belw v1Mgsevn Spine Anterior Cervical and Discectomy Cervical radiculopathy Senile osteoporosis 47:45 AM EDTVirtual [facility] [place] ORStart: 31-84-5065Flbxrbmfna hospital visit by jhonhjokm33/23/2024 7:45 AM EDT Hospital Encounter [facility] [place] [address] [place] [address] Doretha Harris MD [address] [facility], [address] [place] [address] [facility] [place] ORStart: 72-32-4185UAyG/Tdap/Td Vaccines (2 - Td or Tdap)DTaP/Tdap/Td Vaccines (2 - Td or Tdap)[facility]Start: 72-01-3169Xgbhq microalbumin profileDTaP,Tdap,Td Vaccine (2 - Td or Tdap)[facility]: 03-11-2024 End: 35-80-1162Loyiyin encounter cnreinasl00/24/2024 11:30 AM EDT Office Visit [facility] [address] [facility] [address] [address] Solomon Narayanan PA-C [address] [place] [address] [facility]Start: 76-99-1023Ofuqbiqzz vaccinationInfluenza Vaccine (#1)NOMS HealthcareComment on above:Postponed from 02/16/2023 (Patient Refused)Start: 02-27-2024 End: 89-53-6748Tizuukhly to same day surgery centerJefferson [facility] [place] ORComment on above:Anterior Cervical Discectomy and Fusion C5-6, C6-7 [20384 (CPT )]Start: 02-27-2024 End: 37-66-1728Wtfsjq ant interbody decompress cervical belw b7Riohdur [facility] [place] ORStart: 79-32-4426Ijedmjynfa hospital visit by physicianJefferson Cherry Hill [facility] [place] ORStart: 81-08-0481ABBKO-19 Vaccine ( season) COVID-19 Vaccine ( season)[facility]: 63-13-7752Pkpum-19 Vaccine ( season)Covid-19 Vaccine ( season)[facility]: 39-55-3423Eeqev-19 Vaccine ( season) Covid-19 Vaccine ()[facility]: 70-26-4623Ifzlozmrt vaccinationBrown Memorial HospitalStlamar: 02-15-2024 End: 98-85-4950Dsmsocg encounter jkbtoivyc18/30/2024 9:00 AM EDT Office Visit [address] Linda [address] [address] Vincenzo Sanchez MD [address] [place] [address] Dr Linda [address], [address] [id number] [facility]: [facility]13[facility]2024 End: 18-94-1851Xputxdj encounter trzdcojbh87/28/2024 11:00 AM EDT Appointment [place] [address] [place] [address] [facility]: 02-03-2024 End: 14-95-4587Fxmjgowi and Metabolites,SNicotine and Metabolites,S Lab Routine Cervical radiculopathy Senile osteoporosis Expected: 02/03/2024 (Approximate), Expires: 01/02/2025[facility] Work Phone: Comment on above:Expected: 02/03/2024 (Approximate), Expires: 01/02/2025Start: 01-03-2024 End: 89-08-3487PHV Skeletal system.axial Views for bone densityXR DEXA bone density axial skeleton w VFA Imaging Routine Senile osteoporosis Expected: 01/03/2024,Expires: 01/02/2025[facility] Service Area Work Phone: comment on above:Expected: 01/03/2024, Expires: 01/02/2025Start: 01-03-2024 End: 71-13-2088JH Cervical spine 6 ViewsXR cervical spine complete 6+ views Imaging Routine Cervical radiculopathy Expected: 01/03/2024, Expires: 01/02/2025 [facility] Work Phone: Comment on above:Expected: 01/03/2024, Expires: 01/02/2025Start: 01-03-2024 End: 26-57-5508Eeclcdo encounter iuzfufnpz37/18/2024 1:30 PM EDT Office Visit [facility] [address] [address] Doretha Harris MD [address] [facility], [address] [address] [facility] 12-13-2023 End: 02-42-9227VS Brain WO and W contrast IVMR brain w and wo IV contrast Imaging Routine Pontine glioma (Multi) Expected: 12/13/2023 (Approximate), Expires: 12/12/2024[facility] Service Area Work Phone: comment on above:Expected: 12/13/2023 (Approximate), Expires: 12/12/2024Start: 12-13-2023 End: 70-35-2432Qvfqixw encounter procedureUH [facility] Centertart: 09-28-2023 End: 68-56-0412Lzgyjqa encounter yrubhwztz90/12/2024 10:15 AM EDT Office Visit [facility] [address]st [place] [address] [place] [address] Department [place] [address] [facility]: 23-92-4312Ywxif brachial pressure indexTrinity Health System West Campustart: 08-30-2023 End: 16-08-3493Pbgjfbq encounter kdwhiguyh31/14/2024 9:40 AM EDT Office Visit [facility] [address] [facility] [address] [place] [address] Nikole Mota [employer]ILED [employer]UBING SUPERVISOR [address] [place] [address] [facility]URStart: 07-26-2023 End: 97-34-5423Ezbzbye encounter cxkekomdo28/08/2024 1:30 PM EST Procedure Visit [facility] [address] [place] [address], [place] [address] Nikole Mota NP [address] [place] [address], [place] [address] [facility]O 210Start: 07-19-2023 End: 37-60-3877Jvdwqigv Tldhnpi7107/19/2023 1:30 PM EST Clinical Support [facility] [address] [place] [address] Nikole Mota 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 [address] [place] [address] Cervical dystoniaNOMS SWS NEURComment on above: Cervical dystoniaStart: 55-43-0873Tqfsaktyhn Health ScreeningBehavioral Health ScreeningWayne HealthCare Main Campustart: 61-14-8975Kumjc volume recorder pneumoplethysmographyUS arterial pvr rest [facility] Start: 36-50-6094LlduzvdsnTrinity Health System West Campustart: 46-53-9197AvaijwyqkTrinity Health System West Campustart: 54-78-6547Bgpxs volume recorder pneumoplethysmographyUS arterial pvr rest [facility] Start: 88-83-4445BWQXD-19 Vaccine ( season)COVID-19 Vaccine ( season)[facility]: 09-96-7731Yzayijatc vaccinationINFLUENZA (Season Ended)[facility]: 58-00-8307WED High Risk: (Elderly (60+) or Population) (1 - Risk 60-74 years 1-dose series)RSV High Risk: (Elderly (60+) or Population) (1 - Risk 60-74 years 1-dose series)[facility]: 48-06-9432FHL patients and/or patients aged 60+ years (1 - 1-dose 60+ series)RSV patients and/or patients aged 60+ years (1 - 1-dose 60+ series) [facility]: 53-76-7044QYU Vaccine (1 - 1-dose 60+ series)RSV Vaccine (1 - 1-dose 60+ series)[facility]: 10-30-2022 End: 88-61-1309IWQ W Auto Differential panel - BloodCBC + DIFF Lab Routine 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) Lung nodules Malignant neoplasm of head, face and neck (HCC) Expected: 10/30/2022 (Approximate), Expires: 10/30/2022[facility] Work Phone: Comment on above:Expected: 10/30/2022 (Approximate), Expires: 10/30/2022Start: 10-30-2022 End: 43-94-2931Kvnwzdycyyiqb metabolic 2000 panel - Serum or PlasmaCOMP METABOLIC PANEL Lab Routine 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) Lung nodules Malignant neoplasm of head, face and neck (HCC) Expected: 10/30/2022 (Approximate), Expires: 10/30/2022[facility] Work Phone: Comment on above:Expected: 10/30/2022 (Approximate), Expires: 10/30/2022Start: 10-30-2022 End: 04-42-3161Tx soft tissue neck w/contrast materialCT NECK SOFT TISSUE W IVCON Radiology Routine Malignant neoplasm of head, face and neck (HCC) Expect ed: 10/30/2022 (Approximate), Expires: 11/29/2022[facility] Work Phone: Comment on above:Expected: 10/30/2022 (Approximate), Expires: 11/29/2022Start: 10-30-2022 End: 77-18-0130Mc thorax w/contrast materialCT CHEST W IVCON Radiology Routine Lung nodules Expected: 10/30/2022 (Approximate), Expires: 11/29/2022[facility] Work Phone: Comment on above:Expected: 10/30/2022 (Approximate), Expires: 11/29/2022Start: 38-95-2095Ulauf depression screening assessment DEPRESSION SCREENINGWayne HealthCare Main Campustart: 48-90-9955Xgcrnwz CultureAerobic CultureTrinity Health System West Campustart: 03-35-2678Reforkowm Culture Anaerobic CultureTrinity Health System West Campustart: 39-22-5287Xlpebksxxch observation [Identifier] in Unspecified specimen by Gram stainTrinity Health System West Campustart: 61-81-5618Wlefkfjkamuke fluid cultureTrinity Health System West Campustart: 07-17-2022 End: 68-48-1997IliunmmmmTrinity Health System West Campustart: 29-59-4789ZgequsumwTrinity Health System West Campustart: 64-23-3025DCDKIOHFSD ASSESSMENTDEPRESSION ASSESSMENTCleGuernsey Memorial Hospitaltart: 29-40-6008Oirhf chest X-rayXR ribs LT min 3V w CXR1V*[facility]: 10-01-5605GV Unspecified body region ViewsTrinity Health System West Campustart: 47-67-4085Wjstdxnlx vaccinationWayne HealthCare Main Campustart: 30-82-9502Eywxx depression screening assessmentDEPRESSION SCREENINGWayne HealthCare Main Campustart: 58-48-8141SNTMV-19 VACCINE (3 - Booster for Pfizer series)COVID-19 VACCINE (3 - Booster for Pfizer series) [facility]: 03-84-5402RXHPBOJPMO ASSESSMENTDEPRESSION ASSESSMENT [facility]: 66-57-3247VSKFJ-19 VACCINE (3 - Booster for Pfizer series)COVID-19 VACCINE (3 - Booster for Pfizer series)[facility]: 99-16-2728AAHNQGEI CANCER SCREENING DISCUSSIONPROSTATE CANCER SCREENING DISCUSSIONWayne HealthCare Main Campustart: 84-40-8824Byzboiho specific antigen measurement Prostate Cancer Screening DiscussionWayne HealthCare Main Campustart: 2012 Pneumococcal Vaccine: 50+ (1 of 1 - PCV)Pneumococcal Vaccine: 50+ (1 of 1 - PCV) [facility]: 63-40-8305Daabdmoak for malignant neoplasm of lungLung Cancer ScreeningBrown Memorial HospitalStart: 46-10-2544XLLHNRDU VACCINE (1 of 2)SHINGRIX VACCINE (1 of 2)[facility]: 82-31-0317Kmhykp Vaccines (1 of 2)Zoster Vaccines (1 of 2)[facility] Start: 40-06-0771FYDPLMEIQ (FIT-DNA)COLOGUARD (FIT-DNA)[facility]: 17-50-4967YpsyngeikhsBBKJXUAZLUZWlzzblgtz ClinicStart: 69-55-8264WUREDEHIGM CANCER SCREENINGCOLORECTAL CANCER SCREENINGWay[facility] HealthCare [facility] Campustart: 50-85-8963PD COLONOGRAPHYCT COLONOGRAPHYWayne HealthCare Main Campustart: 41-15-8550SQNOV OCCULT BLOOD FECAL OCCULT BLOODWayne HealthCare Main Campustart: 77-08-8402Qfnzlfqi specific antigen measurementProstate Cancer Screening DiscussionWayne HealthCare Main Campustart: 11-25-2007 Screening for malignant neoplasm of colonWayne HealthCare Main Campustart: 11-25-2007 SIGMOIDOSCOPYSIGMOIDOSCOPYWayne HealthCare [facility] Campustart: 41-54-7752Heqpx panelLipid ScreeningWayne HealthCare [facility] Campustart: 90-24-4559ASELZ SCREENLIPID SCREENWayne HealthCare Main Campustart: 91-23-7097Nfugdbllm A Vaccines (1 of 2 - Risk 2-dose series) Hepatitis A Vaccines (1 of 2 - Risk 2-dose series)[facility]: 16-67-0669Elnxzaygjnre vaccinationPneumococcal Vaccine (1 of 2 - PCV)[facility]: 59-44-5165Yxppj microalbumin profileDTAP,TDAP,TD (1 - Tdap)[facility]: 70-78-6648Ahalkiz Screening Anxiety ScreeningWayne HealthCare Main Campustart: 94-17-6410Wrijhkcxer ScreeningDepression ScreeningWayne HealthCare Main Campustart: 13-38-2124Jwshhkme mellitus screeningDiabetes ScreeningUnMercy Health St. [facility]: 20-37-0442MEUJGNZLK C SCREENING HEPATITIS C SCREENINGWayne HealthCare Main Campustart: 13-46-8120Eehvpplzf C screening Hepatitis C ScreeningUniversity Hospitals [facility]: 20-37-8339NKX SCREENINGHIV SCREENINGWayne HealthCare [facility] Campustart: 86-06-3724FJA screeningHIV ScreeningWayne HealthCare Main Campustart: 55-41-5146Kkjrtflqfcwc Vaccine: Pediatrics (0 to 5 Years) and At-Risk Patients (6 to 64 Years) (1 of 2 - PCV)Pneumococcal Vaccine: Pediatrics (0 to 5 Years) and At-Risk Patients (6 to 64 Years) (1 of 2 - PCV)[facility]: 88-85-8683BOY Vaccines (1 of 1 - Standard series)MMR Vaccines (1 of 1 - Standard series)[facility]: 50-25-5892Kgkadw wellness visitWelcome to Medicare Visit [facility]: 00-76-7773ABB screeningHIV Screening [facility]: 92-32-0887Afjww panelLipid Panel [facility]: 14-20-5341Uifnwusaf for malignant neoplasm of colonNOMS HealthcareStart: 27-44-2025Ixbreifpo for osteoporosisBone Density ScanUnMercy Health St. [facility]: 37-34-3163Pqbuth Adult PhysicalYearly Adult PhysicalUnLouis Stokes Cleveland VA Medical CenterAnk brachial pressure indexKettering HealthBacteria identified in Cerebral spinal fluid by CultureCSF CULT + STAIN Microbiology Routine NPH (normal pressure hydrocephalus) ([facility]) Ordered: 09/13/2022[facility] Work Phone: Comment on above:Ordered: 09/13/2022acteria identified in Unspecified specimen by Aerobe cultureKettering HealthBacteria identified in Unspecified specimen by Anaerobe cultureKettering Health End: 61-37-5006Hdosv metabolic 2000 panel - Serum or PlasmaBasic metabolic panel Lab Routine Morning draw (Lab) for 3 Occurrences starting 04/10/2024 until , 1 completed[facility] Work Phone: Comment on above:Morning draw (Lab) for 3 Occurrences starting 04/10/2024 until 04/12/2024, 1 completed End: 63-93-8155TRX panel - Blood by Automated countCBC Lab Routine Morning draw (Lab) for 3 Occurrences starting 04/10/2024 until 04/12/2024, 1 completed [facility] Work Phone: Comment on above:Morning draw (Lab) for 3 Occurrences starting 04/10/2024 until 04/12/2024, 1 completedCell count panel - Cerebral spinal fluidCSF CELL COUNT Lab Routine NPH (normal pressure hydrocephalus) ([facility]) Ordered: 09/13/2022[facility] Work Phone: Comment on above:Ordered: 09/13/2022ell count, cerebrospinal fluidKettering HealthComprehensive metabolic 1999 panel - Serum or PlasmaKettering HealthComprehensive metabolic 2000 panel - Serum or PlasmaKettering Health End: 72-45-2812Lkcvocnhwc Pulse oximetry, In Phase 1Continuous Pulse oximetry, In Phase 1 Respiratory Care Routine Continuous until discontinued starting 04/09/2024[facility] Service Area Work Phone: Comment on above:Continuous until discontinued starting 04/09/2024Enolase.neuron specific [Mass/volume] in Serum or Plasma by ImmunoassayKettering HealthFungus identified in Unspecified specimen by CultureKettering HealthGlucose [Mass/volume] in Cerebral spinal fluidKettering HealthGlucose [Mass/volume] in Serum or PlasmaPOCT Glucose Point of Care Testing - Docked Device Routine As needed (Lab) until discontinued starting 04/09/2024[facility] Service Area Work Phone: comment on above:As needed (Lab) until discontinued starting 04/09/2024 End: 14-56-3858Tlqnofvxm spirometry InstructIncentive spirometry Instruct Respiratory Care Routine Once for 1 Occurrences starting 04/09/2024 until 04/09/2024[facility] Work Phone: Comment on above:Once for 1 Occurrences starting 04/09/2024 until 04/09/2024IR LP FOR DRAINAGE (PRESSURE)IR LP FOR DRAINAGE (PRESSURE) Radiology Routine NPH (normal pressure hydrocephalus) (HCC) Ordered: 3CKet[facility] Health [facility] Work Phone: Comment on above:Ordered: 09/13/2022 Meningitis+Encephalitis pathogens DNA and RNA panel - Cerebral spinal fluid by JER with non-probe detectionKettering Health End: 04-35-7229Jpu brain brain stem w/o w/contrast materialMRI BRAIN WO/W IVCON Radiology Routine 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HCC) 1 Occurrences starting 09/20/2022 until 10/20/2023[facility] Work Phone: Comment on above:1 Occurrences starting 09/20/2022 until 4Patient EducationMercy Health – The Jewish Hospital Ctr Work Phone: Patient referralMercy Health – The Jewish Hospital Ctr Work Phone: Protein [Mass/volume] in Cerebral spinal fluid [facility] End: 65-12-3700Mfnxwavf Catheter RemovalUrethral Catheter Removal Procedures Routine Once for 1 Occurrences starting 04/09/2024 until 04/09/2024[facility] Work Phone: Comment on above:Once for 1 Occurrences starting 04/09/2024 until 04/09/2024Virus identified in Unspecified specimen by Culture [facility] End: 30-01-2050CP Cervical spine 6 [facility] Service Area Work Phone: comment on above:Once for 1 Occurrences starting 02/13/2024 until 02/13/2024XR Chest 2 ViewsXR chest 2 views Imaging Routine Cervical radiculopathy Senile osteoporosis 02/13/2024 11:10 AM [facility] Work Phone: [facility] 2 [facility]Co[facility] Immunizations Immunization DateImmunizationNotesCare FxpveqlcWhkiysyy67-00-9286QPKOQ-04 Vaccine Pfizer - Documentation Purposes OnlyGriselda Hastings Other [facility]07-15-2021COVID-19 Vaccine Pfizer - Documentation Purposes OnlyGriselda Hastings Other [facility]08-08-2016KENALOG - 10 mgGriselda Hastings Other [employer] Other 08839349-34-3669Ealsqla per 15 mgKatytt Andreas Other [employer] Other 09132327-00-4064ulayzuz toxoid, reduced diphtheria toxoid, and acellular pertussis vaccine, adsorbedGriselda Hastings Other [employer] Other Payers DatePayer CategoryPayerPolicy [id number]-qws [id number] 2024Medicare [id number] [id number] Care (Private)[facility] 1.2.840.666603.1.13.647.2.7.9.554931.592797.85766-98-9805Tfcekuw Health [id number] 08.03.830.9.220052.05361381-97-6707Tvtjimv Health InsuranceOHIO [facility] CHOICE PLUS NETWORK GENERIC [id number] 2021-Present [phone] [address] [place] [address] [id number] 2019MedicaidCARESOURCE MEDICAID [facility] MEDICAID [id number] 2019-Present [phone] [address] [place] [address] [id number] [id number] 2019Medicaid1.2.840.899500.1.13.159.2.7.3.611930.63739-75-5530Tbwkyli Health Insurance1.2.840.365448.1.13.159.2.7.3.268666.20202-20-9043Kgrdcsb [id number] [id number] .6.27812[id number] .1.897894.3.57[id number] 2.16.840.1.478684.3.579.2.44264-93-3015Bmcqawk61019089 2.16.840.1.387208.3.57[id number] 2.16.840.1.218847.3.579.2.[id number] 2.16840.1.166554.3.579.[id number] 2.16.840.1.233764.3.57[id number] 2.840.1.511791.3.579.[id number] 2.840.1.462585.3.579.2.849950-84-5856Iltkvqd71221707 2.840.1.213482.3.579.2.752559-25-8653Ysapdxo71507264 2.840.1.031658.3.579.2.906381-48-0704Ryqqdpr53090780 2.16840.1.235350.3.579.2.361880-16-0516Paoprgj38141580 2.840.1.708448.3.579.2.016280-33-7126Lepdjly08661815 2.840.1.980377.3.579.2.730898-60-9206Prkxwib07387179 2.16840.1.392542.3.579.2.310672-61-3077Rbwwjww31154474 2.16840.1.301892.3.579.2.176085-31-1811Liphjdg84876084 2.16840.1.035627.3.579.2.991726-49-5218Ojirevx24722312 2.16.840.1.413137.3.579.2.851044-26-4256Iiiylth248323026 2.16.840.1.654566.3.579.2.912435-96-4513Urxlfjt865608008 2.16.840.1.084314.3.579.2.122350-01-2112Qotjoqs497368718 2.16.840.1.833739.3.579.2.686296-93-7813Lkdqphz19277092 2.16.840.1.072764.3.579.2.378088-86-1630Xuomvei05618198 2.16.840.1.513352.3.579.2.200420-01-2308Lqjhirk80999089 2.16840.1.933447.3.579.2.109856-87-8054Jnxuyqu72147520 2.16.840.1.756467.3.579.2.054851-18-9617Rcjmczp25639971 2.16.840.1.890665.3.579.2.395232-07-6908Wngabmg7778741 2.16.840.1.517608.3.579.2.136410-90-7559Ufoieln5934802 2.16840.1.753288.3.579.2.425239-84-4745Nptdyov0031551 2.16.840.1.958451.3.579.2.419817-77-7816Olnusmx4432496 2.16.840.1.252733.3.579.2.287412-28-7786Kxkgfsr7100401 2.16.840.1.133710.3.579.2.074133-72-0154Jujoyyl982078098 2.16.840.1.745316.3.579.2.60306-10-3747Xutzrnd586631397 2.0.1.794934.3.579.2.08764-48-7019Fnqnvtv728226154 2.0.1.622798.3.579.2.18206-69-0109Isqbyqv853188444 2..1.381000.3.579.2.39107-75-0969Taetlat776754830 2..1.459747.3.579.2.61927-38-1755Qlrjcop138952610 2..1.984768.3.579.2.98386-15-8676Qrmexsx376498064 2..1.192783.3.579.2.Private Health Ojdnenqon50443302 9cf900u3-9271-07ei-dnuw-70pkl9341275ScmwfdkDUU933358422529 z17m010r-fdw0-1l71-k5y8-g0r1i40b5496Stkjzup95112018 2..1.223429.3.579.2.733Ppysecs76699079 2..1.892177.3.579.2.531 Hvhrcqj99893925 2..1.892468.3.579.2.329Cnrlfyp79724585 2..1.898748.3.579.2.079Znhdhyn83124511 2..1.151220.3.579.2.531 Chnwtep90349609 2..1.490058.3.579.2.310Ohgdzgz43174572 2..1.905135.3.579.2.050Buwoclh38780427 2..1.043321.3.579.2.531 Bkzrpqq69193875 2..1.563483.3.579.2.531 Social History DateTypeDetailFacilityStart: 04-29-2018 End: 03-38-9737Vkikovx smoking status NHISSmoker (finding)[facility]: 22-98-1548Eoy [facility]: 13-97-4030Wjovgpl smoking status NHISEx-smokerWayne HealthCare Main Campustart: 06-18-1973 History of tobacco useCigarette SmokerWayne HealthCare Main Campustart: 10-16-2019 End: 35-78-9362Mwyxgvviun smoked current (pack per day) - Reported1.5COhioHealth Riverside Methodist Hospitaltart: 10-16-2019 End: 69-99-1287Fagljte use and exposureSmokeless tobacco non-userWayne HealthCare Main Campustart: 10-14-2020 End: 76-11-8221Dolhuhn intakeEx-drinker (finding)[facility]: 71-42-1475Fibijea SDOH Alcohol Commentquit 2002[facility]: 10-16-2019 Tobacco Commentquit smoking 01/2019[facility]: 33-99-7163Rqc Assigned At [facility] CarolinaNot on fileWayne HealthCare Main Campustart: 10-03-2021 End: 06-58-8399Fhhszlvl to SARS-CoV-2 (event)Not sureWayne HealthCare Main Campustart: 07-03-2023 End: 30-42-8761Fxl Assigned At [facility] EnterpriseStart: 03-10-2022 End: 02-69-6462Hjsmgvny to SARS-CoV-2 (event)Unable to assessMercy Health Cl[facility] Hospital Work Phone: Start: 12-28-2022 End: 15-99-6651Gghvi SmokerSHRINERS HOSPITALS FOR CHILDREN EnterpriseStart: 41-27-1722Oituylo Comment6-10 cigarettes/dayNOMS HealthcareStart: 00-03-5161Qmwuny identityIdentifies as male gender (finding)[facility] HealthcareStart: 99-42-5608Yitctd orientationHeterosexual (finding)[facility] HealthcareTobacco smoking status NHISTobacco smoking consumption unknownBrown [facility] Hospital Work Phone: Start: 10-05-2023 End: 72-99-3835Tqabgdvwy beverage intakeLifetime non-drinker (finding)[facility] Work Phone: adult Depression Screening Espdfnprbw9Doamsscwv Clinic How often to you have a drink containing alcohol?NeverUnLouis Stokes Cleveland VA Medical CenterIn the past 12 months, was there a time when you were not able to pay the mortgage or rent on time?NoBrown Memorial Hospital Work Phone: Start: 04-28-2024 End: 84-97-9951SjrGjvm (finding)[facility] HealthNEGATED: Highlighted rowStart: NINFHistory of tobacco usePassive smokerBrown Memorial Hospital Work Phone: Medical Equipment Procedure CodeEquipment CodeEquipment Original TextEquipment IdentifierDates Angiogram, lower extremity, leftMultiple peripheral artery stent, bare-metal ([id number] FDAStart: 94-33-6009Klsixnpzr, [employer]otic 6 X 11 X 14 - [id number] - [id number]: 04-09-2024 Allograft, [employer] Lordotic 6 X 11 X 14 - [id number] - [id number]: 24-84-3843Peyfx, Acp, 1.6v, 2 Level, 34mm - [id number]: 96-19-1601Vrmjh, Acp, Self Drill, 3.5 X 17mm, Variable - [id number] Start: .5 X 19mm [id number]_rhaPwdsc: 63-60-8260Cdnxydp on above: Description: per bill only jdr 04/10 Goals DatePatient GoalDesired Activity/StatePersonal health goal Functional Status IyclUqzegaawulRlskfgPqzlzulw87-62-5058Encgyra Health Questionnaire 2 item (PHQ- 2) [Reported][facility] Work Phone: 1(765) 435-17960062788-12-7908BPT-0 quick depression assessment panel [Reported.PHQ][facility] Work Phone: Clinical Notes 11-03-2008 to 03-18-2025 Note Date & JxhyFsyuYvmwmmpx35-69-9577 History of Present illness Narrative* Oziel Cadena [...] in all four extremities, including at least 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 documented in this [facility]09-04-2025 Evaluation note* Author Shilpi Lantigua [facility] 2024 5:18pmSooner if needed, the ER if concerns,The above note written by Shilpi Lantigua LPN acting as human recorder, note dictated by Dr. Griselda Hastings [facility] Work Phone: 1(113) 268-274309-04-2025 Evaluation note* Author Shilpi Lantigua [facility] 2024 5:18pmSooner if needed, the ER if concerns,The above note written by Shilpi Lantigua LPN acting as human recorder, note dictated by Dr. Griselda Hastings Author Curtis Covarrubias [facility]Authored[facility] 2024 1:58pmThe above note written by YOBANI Stein acting as human recorder, note dictated by Dr.Brett Hastings. [facility] Work Phone: 1(858) 768-364708-20-2025 History of Present illness Narrative* Oziel Cadena [...] to alleviate the pain. [place] [facility] [id number] Evaluation note* Diagnosis Onset Date Resolution Status Admit Date Colon polyps acuteJuly 2024 3:14pmDyspepsiaacuteJuly 2024 3:14pmGERD (gastroesophageal reflux disease)acuteJuly 2024 3:14pmAnxiety and depressionacutept2024 10:28amBurning sensationacuteSept2024 10:28amColon polypsacuteSept2024 10:28amHyperlipidemiaacute Floresita , 2025 10:28amMedicare annual wellness visit, initialacuteFebruary 19, 2025 10:28amNicotine dependence with current useacuteFebruary 19, 2025 10:28amPAD (peripheral artery disease)acuteSept2024 10:28amScreening for prostate canceracuteSe2024 10:28am [facility] Work Phone: 1(467) 350-155807-24-2025 History of Present illness Narrative* QUENTIN Vail [...] INFLAMED SEBORRHEIC KERATOSIS Left Wrist - Anterior [place] and brown stuck on verrucous scaly papule [...] limited to risks of scarring, darker or saw cleaner pigmentary changes, recurrence, incomplete removal and infection. [...] limited to risks of scarring, darker or saw cleaner pigmentary changes, recurrence, incomplete removal and infection. [...] 1 year, skin check documented in this encounterSoutheast [place] Community Treatment [id number] History of Present illness Narrative* Oziel Cadena [...] spinal cord stimulator, as suggested by his electrostatic paint operator, and is scheduled to see his [...] injection was administered today. documented in this encounterSoutheast Missouri Community Treatment [id number] Evaluation note* Author Shilpi Lantigua [facility] HealthAuthoredJune 2024 2:36pmSooner if needed, the ER if concerns,The above note written by Shilpi Lantigua LPN acting as human recorder, note dictated by Dr. Griselda Hastings [facility] Work Phone: 1(276) 916-734905-28-2025 History of Present illness Narrative* Oziel Cadena [...] ezetimibe (ZETIA) 10 mg, Oral, Daily HYDROcodone-acetaminophen ([place]) 5-325 MG tablet take 1 tablet orally [...] Depression: Not at risk (11/05/2024) Received from [facility] PHQ-2 PHQ-2 score: 2 REVIEW OF [...] Ana Luisa's absent. Ankle clonus absent. Coordination Ypkbej-mt-tzie, rapid alternating movements and gtsh-cg-ldtb normal bilaterally without dysmetria. Gait Normal casual, [...] the injections if needed. documented in this [facility]05-23-2025 NoteHNO ID: [id number] Author: RACQUEL COLE MD Service: ? Author Type: Physician Type: Progress Notes Filed: 11/07/2024 11:09 Note Text: NAME: Shantel Melendez CLINIC NO.: [id number] DATE OF SERVICE: November 07, 2024 (Curtis) Some elements in this clinic note that are critical to medical decision making have been carefully reviewed and included from a prior clinic note dated: November 02, 2023 (Curtis) Referring Provider: Griselda Hastings, DO Additional Clinicians involved in Shantel Melendez's care: Dr Kimberly Nichole ENT, Dr. 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 Scans and labs in 1 year RTC [...] adenopathy is identified. 10/05/2021 - MRI Brain: [facility] There is T2 and [...] microvascular ischemic change. Brainst (more content not included)...[facility]05-19-2025 History of Present illness Narrative* Curtis [...] PATIENT PRESENTS WITH AN IMPLANTABLE OR ATTACHED CUSTOMER BUSINESS MANAGER: No RADIOLOGY DEPARTMENT: CT; Exam(s) Completed: Chest and Neck PERIPHERAL IV DATA: Site assessment: Clean,Dry and Intact, Site disposition Discontinued SIGNED BY: RT Craig(R) November 03, 2024 8:32 AM documented in this encounterMer[facility] NoteHNO ID: [id number] Author: CURTIS DA SILVA RN Service: ? [...] DATE: November 03, 2024 TIME: 8:13 [facility]05-19-2025 NoteHNO ID: [id number] Author: SALLY DOYLE RT(R) Service: ? Author [...] PATIENT PRESENTS WITH AN IMPLANTABLE OR ATTACHED CUSTOMER BUSINESS MANAGER: No RADIOLOGY DEPARTMENT: CT; Exam(s) Completed: Chest and Neck PERIPHERAL IV DATA: Site assessment: Clean,Dry and Intact, Site disposition Discontinued SIGNED BY: RT Craig(R) November 03, 2024 8:32 [facility]05-19-2025 Telephone encounter Note* Telephone Encounter - Curtis Da Silva RN - 11/03/2024 7:49 AM EDT Please sign pended labs for 1 year f/u-will draw with CT today Thank You! Curtis Da Silva RN [facility]05-19-2025 Miscellaneous Notes* Telephone Encounter - Curtis Da Silva RN - 11/03/2024 7:49 AM EDT Please sign pended labs for 1 year f/u-will draw with CT today Thank You! Curtis Da Silva, RN documented in this encounterMer[facility] History of Present illness Narrative* Doretha [...] assess the C7 screw. Doretha Harris MD Section 8 Property Manager of Neurosurgery [facility] ICU Office: [phone] [1] Past Surgical History: Procedure Laterality Date [...] 60 capsule, Rfl: 0 documented in this [facility] Work Phone: 1(874) 671-383004-21-2025 Radiology [facility] [place] [address] CT Scan Report Signed Patient: Shantel Melendez MR#: [id number] : 1960 Acct:[id number] Age/Sex: 63 / M ADM Date: 5 Loc: ER Room: Type: [facility] ER Attending Dr: Copies to: Manisha [...] Dorothy Eubanks M.D.10/06/2024 4:08 PM Dictation Location: [place] [address] Transcribed By: MARISA 10/06/24 2747 Dictated By: Dorothy Eubanks MD 10/06/24 1557 Signed By: 10/06/24 1634 [facility] Work Phone: 1(792) 113-712304-21-2025 [facility]iology [facility] [place] [address] [place] [address] CT Scan Report Signed Patient: Shantel Melendez MR#: [id number] : 1960 Acct:[id number] Age/Sex: 63 / M ADM Date: 5 Loc: ER Room: Type: [facility] ER Attending Dr: Copies to: Manisha [...] Dorothy Eubanks M.D.10/06/2024 3:56 PM Dictation Location: [place] [address] Transcribed By: [facility] 10/06/241555 Dictated By: Dorothy Eubanks MD 10/06/241550 Signed By: 10/06/241555 [facility] Work Phone: 1(214) 399-125203-27-2025 Evaluation note* Diagnosis Onset Date Resolution Status Admit Date Current every day smoker acuteMarch 2024 8:53amPAD (peripheral artery disease)acuteMarch 2024 8:53amRight leg claudicationacuteMar2024 8:53am [facility] Work Phone: [phone]) [phone] Evaluation note* Diagnosis Onset Date Resolution Status Admit Date Current every day smoker acuteMar2024 8:53amPAD (peripheral artery disease)acuteMarch 2024 8:53amRight leg claudicationacuteMarch 2024 8:53amCardiac arrhythmiaacute October 27, 2024 9:37amEssential hypertensionacuteMay 2024 9:37am HyperlipidemiaacuteMa2024 9:37amGlioma of braindel2024 9:37amPAD (peripheral artery disease)deletedOctober 27, 2024 9:37am [facility] Work Phone: 1([phone]) [phone] Evaluation note* Diagnosis Onset Date Resolution Status [...] habitsacuteJune 2024 1:57pmDiarrheaacuteJune 2024 1:57pmDysphagiaacuteJune 2024 1:57pm [facility] Work Phone: [phone]) 570-116403-27-2025 Evaluation note* Diagnosis Onset Date Resolution Status [...] RSV (respiratory syncytial virus infection)acuteJune 2024 2:26pm [facility] Work Phone: 1([phone]) 562-179803-27-2025 History of Present illness Narrative* Oziel Cadena [...] ezetimibe (ZETIA) 10 mg, Oral, Daily HYDROcodone-acetaminophen ([place]) 5-325 MG tablet take 1 tablet orally [...] Depression: Not at risk (06/30/2024) Received from [facility] PHQ-2 Patient Health Questionnaire-2 Score: [...] Ana Luisa's absent. Ankle clonus absent. Coordination Jmqubv-jo-accu, rapid alternating movements and esrt-qg-xuby normal bilaterally without dysmetria. Gait Normal casual, [...] the injections if needed. documented in this encounterSoutheast Missouri Community Treatment [id number] History of Present illness Narrative* zOiel Cadena MD - 07/31/2024 1:20 PM EST [...] ezetimibe (ZETIA) 10 mg, Oral, Daily HYDROcodone-acetaminophen ([place]) 5-325 MG tablet take 1 tablet orally [...] Depression: Not at risk (06/30/2024) Received from [facility] PHQ-2 Patient Health Questionnaire-2 Score: [...] the injections if needed. documented in this [facility]01-16-2025 Evaluation note* Author Shilpi Lantigua [facility] HealthAuthoH. C. Watkins Memorial Hospitaluary 2024 4:44pmSooner if needed, the ER if concerns,The above note written by Shilpi Lantigua LPN acting as human recorder, note dictated by Dr. Griselda Hastings [facility] Work Phone: 1(176) [phone] History of Present illness Narrative* Oziel Cadena [...] ezetimibe (ZETIA) 10 mg, Oral, Daily HYDROcodone-acetaminophen ([place]) 5-325 MG tablet take 1 tablet orally [...] Depression: Not at risk (06/30/2024) Received from [facility] PHQ-2 Patient Health Questionnaire-2 Score: [...] injections at that time. documented in this encounterSoutheast Missouri Community Treatment [id number] History of Present illness Narrative* Doretha Harris [...] another set of XR. Doretha Harris MD Section 8 Property Manager of Neurosurgery [facility] ICU Office: [phone] Scribe Attestation By signing my name below, I, Shira Sen, Scribe, attest that this documentation has been preparedunder the direction and in the presence of Doretha Harris MD. documented in this [facility] Work Phone: [phone]) 937-817312-04-2024 History of Present illness Narrative* Oziel Cadena [...] ezetimibe (ZETIA) 10 mg, Oral, Daily HYDROcodone-acetaminophen ([place]) 5-325 MG tablet take 1 tablet orally [...] Depression: Not at risk (04/09/2024) Received from [facility] PHQ-2 Patient Health Questionnaire-2 Score: [...] his injections if needed. documented in this encounterSoutheast Missouri Community Treatment [id number] History of Present illness Narrative* Solomon Narayanan PA-C - 04/30/2024 1:00 PM EST Images from the original note were not included. [facility] Department of Neurological Surgery Post Operative Patient [...] CAD (coronary artery disease) Peripheral vascular disease ([facility]) Past Medical History: Diagnosis Date Anxiety Cataract s/p excision of left Cervical radiculopathy Chronic pain disorder Coronary artery disease Depression Dysphagia thin liquids Hypertension NPH (normal pressure hydrocephalus) ([facility]) PAD (peripheral artery disease) ([facility]) s/p stent (05/2023) on ASA 81mg Peripheral vascular disease ([facility]) Pontine lesion watchful waiting Pulmonary nodule Skin cancer of scalp s/p excsison Spinal stenosis severe cervical stenosis, left sided foraminal stenosis at C5-6 and C6-7 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 Tongue cancer ([facility]) s/p resection Vision loss Past Surgical History: [...] directly. Sincerely, RICH Hernandez PA-C Associate Physician Front Office Developer, Neurosurgery Clinical Section 8 Property Manager [facility] [place] [address] documented in this [facility] Work Phone: [phone]) 182-365911-11-2024 Evaluation note* Diagnosis Onset Date Resolution Status Admit Date Cardiac arrhythmia acuteNovember 2023 9:39amEssential hypertensionacuteNov2023 9:39amHyperlipidemiaacuteNovember 2023 9:39amGlioma of braindeleted April 28, 2024 9:39amPAD (peripheral artery disease)deletedNovember 2023 9:39amHyperlipidemiaacuteJanuary 2024 9:23amS/P cervical discectomy acuteJanuary 2024 9:23amScreening for prostate canceracuteJanuary 2024 9:23am [facility] Work Phone: [phone]) 781-762210-24-2024 Hospital course Narrative* Aaron Gallo PA-C - [...] HYDROcodone-acetaminophen 5-325 mg tablet; Commonly known as: [place] tiZANidine 4 mg capsule; Commonly known as: Zanaflex Outpatient Follow-Up Future Appointments Date Time Provider Department Center 04/30/2024 1:00 PM Solomon Narayanan PA-C [id number] 05/02/2024 9:00 AM [facility] [place] 05/02/2024 10:00 AM Helder Jack MD [id number] [facility] 06/30/2024 9:00 AM Doretha Harris MD [id number] [place] Aaron Gallo PA-C documented in this [facility] Work Phone: [phone]) 442-798710-24-2024 History of Present illness Narrative* Nikole Lezama PharmD - 04/10/2024 12:11 PM EDT Pharmacy Medication History Review Shantel Melendez is a 63 y.o. male admitted for Cervical radiculopathy. Pharmacy reviewed the patient's iovdh-ct-qzhiwetyp medications and allergies for accuracy. Medications ADDED: norco Medications CHANGED: Tizanidine nightly to as needed Medications REMOVED: Diamox Albuterol The list below reflects the updated TERRITORY OUTSIDE SALES MANAGER list. Prior to Admission Medications Prescriptions Last Dose Informant HYDROcodone-acetaminophen ([place]) 5-325 mg tablet Self Sig: Take 1.5 [...] interview (good historian-required some prompting) [facility] medical note 01/29 Additional Comments: none Nikole Lezama PharmD Transitions of Care Pharmacist 04/10/24 Secure Chat preferred If no response call [phone] or VocMUJIN Med Rec * Tori Johnson OT - 04/10/2024 11:57 AM EDT Occupational Therapy Evaluation Patient Name: Shantel Melendez Today's Date: 04/10/2024 Room: [address] [place] [address] Time Calculation Start Time: 1019 Stop Time: [...] bars in shower Prior Function: Level of Florien: Independent with ADLs and functional transfers, Independent with homemaking with ambulation ADL Assistance: Independent Homemaking Assistance: Independent Ambulatory Assistance: Independent 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, 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 [...] LUE LUE: Within Functional Limits Outcome Measures: [facility] Daily Activity Putting on and taking [...] 11:57 AM TORI JOHNSON OT Rehab Office: [phone] * Tia Caceres, PT - 04/10/2024 10:33 AM EDT Physical Therapy Physical Therapy Evaluation Patient Name: Shantel Melendez Department: [place] [address] Room: [address] [place] [address] Today's Date: 04/10/2024 Time Calculation Start Time: [...] Prior Function Per Pt/Caregiver Report Level of Florien: (independent ambulation in/outdoors no device, independent stairclimbing as needed, no falls) ADL Assistance: Independent Homemaking Assistance: Independent Ambulatory Assistance: Independent 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 documented in this [facility] Work Phone: 1([phone]) 351-780910-23-2024 Plan of care note* Care Plan - [...] goals for the shift include pain management. [facility] Work Phone: [phone]) 364-629710-23-2024 Miscellaneous Notes* Care Plan - Elizabeth Esposito [...] (B) Operative Note Date: 04/09/2024 OR Location: [facility] OR Name: Shantel Melendez, : 1960, Age: 63 y.o., , Sex: male Diagnosis Pre-op Diagnosis * Cervical radiculopathy [M54.12] * Senile osteoporosis [M81.0] Post-op Diagnosis * Cervical radiculopathy [M54.12] * Senile osteoporosis [M81.0] Procedures Fusion Spine Anterior Cervical and Discectomy C5-6, C6-7 61105 - OK ARTHRD ANT INTERBODY DECOMPRESS CERVICAL BELW C2 OK ARTHRD ANT INTERBODY DECOMPRESS CERVICAL BELW C2 [11871] OK ARTHRD ANT INTERDY CERVCL BELW C2 EA ADDL NTRSPC [88045] OK ALLOGRAFT FOR SPINE SURGERY ONLY STRUCTURAL [] OK MICROSURG TQS REQ USE OPERATING MICROSCOPE [80214] Surgeons * Doretha Harris - Primary Resident/Fellow/Other Front Office Developer: Surgeons and Role: * Chicho Bryan MD [...] 85 mL Specimen: No specimens collected Staff: Water Taxi Driver: Derrell Scrub Person: Beverly Scrub Person: Shaina Drains and/or Catheters: Closed/Suction Drain 1 Neck Bulb 10 Fr. (Active) Urethral Catheter Double-lumen;Non-latex 16 Fr. (Active) Tourniquet Times: Implants: Implants Type Name Action Serial No. Spinal Hardware SCREW, DISTRACTION, 14 MM - [id number] Used, Not Implanted Spinal Hardware ALLOGRAFT, TRIAD LORDOTIC 6 X 11 X 14 - [id number] - [id number] Implanted [id number] Spinal Hardware ALLOGRAFT, TRIAD LORDOTIC 6 X 11 X 14 - [id number] - [id number] Implanted [id number] Spinal Hardware PLATE, ACP, 1.6V, 2 LEVEL, 34MM - [id number] Implanted Spinal Hardware SCREW, ACP, SELF DRILL, 3.5 X 17MM, VARIABLE - [id number] Implanted 3.5 X 19MM SCREW Implanted Findings: [...] then placed our self-retaining retractor in and [place] pins in and placed the disc space [...] 04/09/2024 4:50 PM EDT documented in this [facility] Work Phone: [phone]) 372-386510-23-2024 Nurse Note* Shantelle Pacheco RN - 04/09/2024 7:03 PM EDT Patient transferred from PACU to [facility] via stretcher in stable condition. Patient oriented to room, bed, and call light. Skin assessment witnessed by Brianda Dowling RN. Will continue to monitor. [facility]10-23-2024 Nurse Note* Shantelle Pacheco RN - 04/09/2024 7:03 PM EDT Patient transferred from PACU to [id number] via stretcher in stable condition. Patient oriented to room, bed, and call light. Skin assessment witnessed by Brianda Dowling RN. Will continue to monitor. documented in this [facility] Work Phone: [phone]) 829-808610-23-2024 Hospital Note* Hospital Course - Aaron Gallo PA-C - 04/09/2024 5:04 PM EDT 63M h/p HTN, CAD, PAD s/p stent on ASA81, pontine glioma, tongue cancer p/w LUE radiculopathy, 04/09 s/p C5-7 ACDF 04/10 PT/OT DC recs no needs, post operative xray shows good position, Drain removed [facility] Work Phone: [phone]) 348-770610-23-2024 Note* Op Note - Chicho Bryan MD - 04/09/2024 2:30 PM EDT Fusion Spine Anterior Cervical and Discectomy C5-6, C6-7 (B) Operative Note Date: 04/09/2024 OR Location: [facility] OR Name: Shantel Melendez, : 1960, Age: 63 y.o., , Sex: male Diagnosis Pre-op Diagnosis * Cervical radiculopathy [M54.12] * Senile osteoporosis [M81.0] Post-op Diagnosis * Cervical radiculopathy [M54.12] * Senile osteoporosis [M81.0] Procedures Fusion Spine Anterior Cervical and Discectomy C5-6, C6-7 16821 - OK ARTHRD ANT INTERBODY DECOMPRESS CERVICAL BELW C2 OK ARTHRD ANT INTERBODY DECOMPRESS CERVICAL BELW C2 [55975] OK ARTHRD ANT INTERDY CERVCL BELW C2 EA ADDL NTRSPC [71757] OK ALLOGRAFT FOR SPINE SURGERY ONLY STRUCTURAL [98364] OK MICROSURG TQS REQ USE OPERATING MICROSCOPE [64935] Surgeons * Doretha Harris - Primary Resident/Fellow/Other Front Office Developer: Surgeons and Role: * Chicho Bryan MD - Resident - Assisting * Rojas Edwards MD - Resident - Assisting Procedure Summary Anesthesia: General ASA: III Anesthesia Staff: Anesthesiologist: Fred Cheek MD C-AA: Shelly Mullins Capp [facility]; NAVEEN Reddy IVONE: Jamee Woodall Estimated [...] 85 mL Specimen: No specimens collected Staff: Water Taxi Driver: Derrell Scrub Person: Beverly Scrub Person: Shaina Drains and/or Catheters: Closed/Suction Drain 1 Neck Bulb 10 Fr. (Active) Urethral Catheter Double-lumen;Non-latex 16 Fr. (Active) Tourniquet Times: Implants: Implants Type Name Action Serial No. Spinal Hardware SCREW, DISTRACTION, 14 MM - [id number] Used, Not Implanted Spinal Hardware ALLOGRAFT, TRIAD LORDOTIC 6 X 11 X 14 - [id number] - [id number] Implanted [id number] Spinal Hardware ALLOGRAFT, TRIAD LORDOTIC 6 X 11 X 14 - [id number] - [id number] Implanted [id number] Spinal Hardware PLATE, ACP, 1.6V, 2 LEVEL, 34MM - [id number] Implanted Spinal Hardware SCREW, ACP, SELF DRILL, 3.5 X 17MM, VARIABLE - [id number] Implanted 3.5 X 19MM SCREW Implanted Findings: [...] then placed our self-retaining retractor in and [place] pins in and placed the disc space [...] Harris MD at 04/09/2024 4:50 PM EDT [facility] Work Phone: [phone]) 743-848810-23-2024 Attending History and physical note* Rojas Edwards MD - 04/09/2024 12:22 PM EDT H&P reviewed. The patient was examined and there are no changes to the H&P. Cosigned by Doretha Harris MD at 04/09/2024 12:53 PM EDT Source Note - Rick Mckinney APRN-ANIMAL ECOLOGIST - 03/26/2024 10:30 AM EDT Images from [...] pressure hydrocephalus) (Multi) PAD (peripheral artery disease) ([facility]) s/p stent (05/2023) on ASA 81mg Peripheral vascular disease ([facility]) Pontine lesion watchful waiting Pulmonary nodule [...] Flowsheet Row Pre-Admission Testing from 02/11/2024 in [facility] Questionnaire Series Submission from 02/06/2024 in [facility] with Generic Provider Laura Can you take [...] or washing dishes? 2.7 filed at 02/11/2024 97517.7 filed at 02/06/2024 003 Can you do [...] Flowsheet Row Pre-Admission Testing from 02/11/2024 in [facility] DVT Score 11 filed at 02/11/2024 1506 BMI 30 or less filed at 02/11/2024 1506 RETIRED: Current Status Major surgery planned, lasting over 3 hours filed at 02/11/2024 1506 RETIRED: History Prior major surgery, Previous malignancy filed at 02/11/2024 1506 RETIRED: Age 60-75 years filed at 02/11/2024 1506 Modified Frailty Index Flowsheet Row Pre-Admission Testing from 02/11/2024 in [facility] Non-independent functional status (problems with dressing, bathing, [...] Flowsheet Row Pre-Admission Testing from 02/11/2024 in [facility] High-Risk Surgery (Intraperitoneal, Intrathoracic,Suprainguinal vascular) 0 filed [...] Flowsheet Row Pre-Admission Testing from 02/11/2024 in [facility] Smoking status 0 filed at 02/11/2024 1506 [...] Flowsheet Row Pre-Admission Testing from 03/26/2024 in [facility] Pre-Admission Testing from 02/11/2024 in [facility] Do you snore loudly? 0 filed at [...] Yellow, Dark-Yellow Appearance, Urine Clear Clear Specific Bertha, Urine 1.007 1.005 - 1.035 pH, Urine [...] Rate 63 BPM Atrial Rate 63 BPM OK Interval 268 ms QRS Duration 74 ms QT Interval 406 ms QTC Calculation(Bazett) 415 ms P [place] 58 degrees R [place] -3 degrees T [place] 18 degrees QRS Count 10 beats Q [...] given to patient. Neurosurgery: Doretha Harris MD [facility] 01/03/24 seen for cervical radiculopathy. Neurosurgery: Jose Cruz Khan MD [facility] 11/05/23- [facility] seen for cervical stenosis of spine. Oncology: Helder Jack MD [facility] 12/13/23 seen for incidental pontine lesion- appears to be low-grade. HEENT/Airway The patient has history of selective right neck dissection (II-V) and bilateral base of tongue/linguial tonsillar excision on 01/30/[address] 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 Currently with limited neck extension. No documented or reported history of airway difficulty. HemOnc: Racquel Cole MD [facility] 11/02/23-[facility] seen for head and neck [...] Cardiology: Lilliam Cason MD - [facility] (see media tab for last office note) [...] understanding ofpreoperative instructions. After Visit Summary given. [facility] Work Phone: 1(443) 735-857010-23-2024 History and physical note* Rojas Edwards MD [...] pressure hydrocephalus) (Multi) PAD (peripheral artery disease) ([facility]) s/p stent (05/2023) on ASA 81mg Peripheral [...] Flowsheet Row Pre-Admission Testing from 02/11/2024 in [facility] (formerly [facility]) Questionnaire Series Submission from 02/06/2024 in [facility] ([facility]) with Generic Provider Laura Can you take [...] or washing dishes? 2.7 filed at 02/11/2024 07962.7 filed at 02/06/2024 003 Can you do [...] Flowsheet Row Pre-Admission Testing from 02/11/2024 in [facility] ([facility]) DVT Score 11 filed at 02/11/2024 1506 BMI 30 or less filed at 02/11/2024 1506 RETIRED: Current Status Major surgery planned, lasting over 3 hours filed at 02/11/2024 1506 RETIRED: History Prior major surgery, Previous malignancy filed at 02/11/2024 1506 RETIRED: Age 60-75 years filed at 02/11/2024 1506 Modified Frailty Index Flowsheet Row Pre-Admission Testing from 02/11/2024 in [facility] (formerly [facility]) Non-independent functional status (problems with dressing, bathing, [...] Flowsheet Row Pre-Admission Testing from 02/11/2024 in [facility] ([facility]) High-Risk Surgery (Intraperitoneal, Intrathoracic,Suprainguinal vascular) 0 filed [...] Flowsheet Row Pre-Admission Testing from 02/11/2024 in [facility] ([facility]) Smoking status 0 filed at 02/11/2024 1506 [...] Flowsheet Row Pre-Admission Testing from 03/26/2024 in [facility] ([facility]) Pre-Admission Testing from 02/11/2024 in [facility] ([facility]) Do you snore loudly? 0 filed at [...] Yellow, Dark-Yellow Appearance, Urine Clear Clear Specific Bertha, Urine 1.007 1.005 - 1.035 pH, Urine [...] Rate 63 BPM Atrial Rate 63 BPM OK Interval 268 ms QRS Duration 74 ms QT Interval 406 ms QTC Calculation(Bazett) 415 ms P [place] 58 degrees R [place] -3 degrees T [place] 18 degrees QRS Count 10 beats Q [...] given to patient. Neurosurgery: Doretha Harris MD [facility] 01/03/24 seen for cervical radiculopathy. Neurosurgery: Jose Cruz Khan MD [facility] 11/05/23- [facility] seen for cervical stenosis of spine. Oncology: Helder Jack MD [facility] 12/13/23 seen for incidental pontine lesion- appears to be low-grade. HEENT/Airway The patient has history of selective right neck dissection (II-V) and bilateral base of tongue/linguial tonsillar excision on 01/30/[address] 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 Currently with limited neck extension. No documented or reported history of airway difficulty. HemOnc: Racquel Cole MD [facility] 11/02/23-[facility] seen for head and neck [...] Cardiology: Lilliam Cason MD - [facility] (see media tab for last office note) [...] After Visit Summary given. documented in this encounterBrown Memorial Hospital Work Phone: 1(859) 304-144310-15-2024 Evaluation note* Author Nida Humphreys [facility] HealthAuthoredOctober 2023 10:01amThe above note written by Nida Humphreys LPN, acting as human recorder, note dictated by Dr. Griselda Hastings. [facility] Work Phone: 1([phone]) 782-900908-15-2024 Evaluation note* Author Nida [facility] HospitalAuthoredAugust 2023 10:40amThe above note written by Nida Humphreys LPN, acting as human recorder, note dictated by Dr. Griselda Hastings. Author Nida [facility] HospitalAuthoredOctober 2023 11:01amThe above note written by Nida Humphreys LPN, acting as human recorder, note dictated by Dr. Griselda Hastings. [facility] Work Phone: 1(887) 289-658707-18-2024 History of Present illness Narrative* Doretha Harris [...] bone stimulator after surgery. Doretha Harris MD Section 8 Property Manager of Neurosurgery [facility] ICU Office: [phone] Scribe Attestation By signing my name below, I, Parisa Cabrera , Scribe attest that this documentation has been prepared under the direction and in the presence of MD Shirley. documented in this [facility] Work Phone: 1(464) 746-768106-27-2024 History of Present illness Narrative* Helder Jack MD - 12/13/2023 10:00 AM EDT Patient ID: Shantel Melendez is a 63 y.o. male. Referring Physician: Shimon Heaton PA-C [id number] [place] [address] Primary Care Provider: Griselda Hastings DO Subjective [...] saw Dr. Lara at the [facility]. Also pain behind left eye. No [...] issues. 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 INTERVAL HISTORY (12/13/2023): Since the last visit, he continues to have severe neck pain, which isslowly getting worse, along with some muffled hearing on the left side. He tried going back to parttime work, but the activity made the neck pain much more severe. He saw a Neurosurgeon at [facility] about the cervical stenosis, but he was unwilling to consider surgery for the neck due to the pontine lesion. He has now been to see a Neurosurgery PA (Solomon Narayanan) at [facility] about the neck, who [...] ROS is as per documentation in the [facility]. Objective BSA: There is [...] Nate Benavidez 12/13/2023 9:38 AM Dictation workstation: [id number] Impression 1. Abnormal increased T2 signal in [...] will undergo a new MRI brain at [facility]. -I spent > 40 minutes in face to face consultation to review and discuss the above; 50% of whichor more was dedicated to counseling. Helder Jack MD documented in this encounterUnLouis [facility] Work Phone: 1(337) 722-406206-27-2024 Instructions* Patient Instructions* Alondra Escamilla RN - 12/13/2023 10:00 AM EDT Your next appointment will be in 5 months. Please schedule your MRI prior to this visit. Please contact [phone] option 5 then option 2 with any questions or concerns. For any scheduling concerns please call [phone] option 1 documented in this encounterBrown Memorial Hospital Work Phone: 1([phone]) 889-721006-26-2024 History of Present illness Narrative* Solomon Narayanan PA-C - 12/12/2023 1:00 PM EDT Images from the original note were not included. 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 Sincerely, RICH Hernandez PA-C Associate Physician Front Office Developer, Neurosurgery Clinical Section 8 Property Manager [facility] [place] [address] documented in this [facility] Work Phone: [phone]) [phone] Instructions* Patient Instructions* Racquel Cole MD - 11/02/2023 10:13 AM EDT Scans and labs in 1 year RTC 1 week after documented in this encounterMercy Health Clermont Hospital05-17-2024 History of Present illness Narrative* Racquel Cole MD - 11/02/2023 9:45 AM EDT Images from the original note were not included. NAME: Shantel Melendez [facility] NO.: [id number] DATE OF SERVICE: November 02, 2023 ([email or web address]) Some elements in this clinic note that are critical to medical decision making have been carefully reviewed and included from a prior clinic note dated: November 03, 2022 (Curtis). Referring Provider: Griselda Hastings, DO Additional Clinicians involved in Shantel Melendez's care: Dr Kimberly Nichole ENT, Dr. 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 10/05/2021 - MRI Brain: [facility] There is T2 and [...] 01/30/2019 - Neck dissection at [facility] Base of tongue did note a [...] 2020: Doing well, still smokes, works at [employer]. Reviewed scans and there is no evidence [...] which included preparing to see the patient, [id number] patient care, completing clinical documentation, performing a medically appropriate examination, counseling and educating the patient/family/caregiver, ordering medications, tests, or p rocedures, independently interpreting results (not separately reported), communicating results to the patient/family/caregiver, and care coordination (not separately reported). Racquel Cole MD, CPE Hematology and Oncology Services Provided at: [facility], [place], [place] Scribe Attestation: This note was scribed [...] my direction. CC: Griselda Hastings, DO [address] [facility] [phone] [address] NEWMAN ENT[address] Dr. Nichole ENT Dr. Ibarra CT surgery [facility]. documented in this encounterMercy Health Clermont Hospital05-13-2024 Evaluation note* Author Shilpi Lantigua [facility] HealthAuthoredMay 2023 10:32amSooner if needed, the ER if concerns,The above note written by Shilpi Lantigua LPN acting as human recorder, note dictated by Dr. Griselda Hastings [facility] Work Phone: [phone]) 196-131405-10-2024 History of Present illness Narrative* Curtis Da [...] PATIENT PRESENTS WITH AN IMPLANTABLE OR ATTACHED CUSTOMER BUSINESS MANAGER: No RADIOLOGY DEPARTMENT: CT; Exam(s) Completed: Chest and Neck PERIPHERAL IV DATA: Site assessment: Clean,Dry and Intact, Site disposition Discontinued SIGNED BY: RT Craig(R) October 26, 2023 10:07 AM documented in this encounterMercy Health Clermont Hospital04-19-2024 History of Present illness Narrative* Helder [...] spinal taps with some improvement. Went to [facility] to be assessed for hydrocephal;us and was told he does not have hydrocephalus. He saw Dr. Lara at the [facility]. Also pain behind left eye. No [...] issues. 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 The ROS is as per documentation in the [facility]. Objective BSA: 1.93 meters squared [...] counseling. Helder Jack MD documented in this encounterBrown Memorial Hospital Work Phone: 1(227) 423-410304-19-2024 Instructions* Patient Instructions* Adriana Thomas RN - 10/05/2023 9:[address] Jack will present your case at Tumor Board next Sunday. Someone from the office will call you that day or about your plan. Please call us with any questions or concerns at [phone] opt. 5, opt. 2 For scheduling concerns please call [phone] option 1 documented in this encounterBrown Memorial Hospital Work Phone: 1(888) 503-886702-28-2024 Evaluation note* Author Curtis Covrarubias [facility] 2023 5:19pmThe above note written by Sue Flood acting as human recorder, note dictated by Dr. Griselda Hastings . [facility] Work Phone: 1(115) [phone] Evaluation note* Author Curtis Covarrubias [facility] 2023 5:19pmThe above note written by Sue Flood acting as human recorder, note dictated by Dr. Griselda Hastings . Author Shilpi Lantigua [facility] HealthAuthoredMay 2023 10:32amSooner if needed, the ER if concerns,The above note written by Shilpi Lantigua LPN acting as human recorder, note dictated by Dr. Griselda Hastings [facility] Work Phone: [phone]) 288-959501-15-2024 Evaluation note* Encounter Date Diagnosis Assessment Notes [...] needed. Jun,hest congestion (ICD-10 - R09.89) In springer covid, flu, strep and rsv test was [...] to continue to follow with them asscheduled. [facility] 12-14-2023 Evaluation note* Encounter Date Diagnosis Assessment Notes Treatment Notes Treatment Clinical Notes May, PAD (peripheral artery disease) (ICD-10 - I73.9) Patient recently had angioplasty for occlusion of right iliac artery that was discovered by reinsurance accountant. He has been doing well since the [...] work before I provide him that consent. [facility] Other 12-13-2023 Evaluation note* Encounter Date Diagnosis [...] I will see him in 3 months. [facility] Other 11-28-2023 Evaluation note* Encounter Date Diagnosis [...] in 3 months Apr,Lightheadedness (ICD-10 - R42) [facility] Other [id number] Procedure noteKettering Health11-16-2023 Evaluation note* Encounter Date Diagnosis Assessment [...] questions were addressed and consent was obtained. [facility] Other 11-14-2023 Evaluation note* Encounter Date Diagnosis [...] M54.2) The patient is now following with [facility]. He states he has an upcoming cervical epidural scheduled. The patient remains out of work on [employer] disability , he voices interest in returning to work soon. Apr,AD (peripheral artery disease) (ICD-10 - I73.9) Arterial studies ordered by reinsurance accountant indicating peripheral artery disease. The patient does report lower extremity pain and heaviness and I recommend it would be beneficial to consult with a vascular specialist. The patient is in agreement, therefore a referral was initiated. A CTA has been ordered by neurologist , appointment pending [facility] scheduling. Apr,Hyperlipidemia (ICD-10 - E78.5) Blood work [...] vocies understanding. We will continue to monitor. [facility] 10-26-2023 Evaluation note* Encounter Date Diagnosis Assessment Notes Treatment Notes Treatment Clinical Notes Mar, Claudication (ICD-10 - I73.9) [facility] 10-25-2023 Evaluation note* Encounter Date Diagnosis [...] in 4 weeks Mar,Lightheadedness (ICD-10 - R42) [facility] 10-24-2023 Evaluation note* Encounter Date Diagnosis Assessment Notes Treatment Notes Treatment Clinical Notes Mar, Elevated blood pressure reading (ICD-10 - R03.0) [facility] 09-28-2023 Evaluation note* Encounter Date Diagnosis [...] of infection. Feb,urning sensation (ICD-10 - R20.8) [facility] Other 09-21-2023 Evaluation note* Encounter Date Diagnosis [...] right index finger. We will continueto monitor. [facility] Other 07-13-2023 Hospital Discharge instructions Diet Plan/Instructions [...] * Discharge Physician: : Lima Joseph MD ([id number]) - Anesthesiology, Pain Management * Discharge Physician Phone: : [phone] [address] [facility] [address] [address] Special Plan/Instructions for Discharge from 12/27/2022 10:26 AM: * Special Instructions : Spoke to patient Wound Care Instruction for Discharge from 12/27/2022 10:26 AM: * Special Instructions : Spoke to patient [employer] 06-20-2023 Evaluation note* Encounter Date Diagnosis Assessment [...] sent to the office to be completed. [facility] 05-12-2023 History of Present illness Narrative* [...] with PATIENT DISCHARGED TO: Ambulatory patient, left [facility] area. A Diagnostic radioactive procedure has taken place, with no further precautions necessary other than routine body substance precautions. More information regarding radiation safety can be found usingthis link: [email or web address] SIGNATURE: TABITHA Srinivasan) PATIENT NAME: Shantel Melendez DATE: October 27, 2022 TIME: 11:55 AM PAGER/CONTACT #: documented in this encounterMercy Health Clermont Hospital04-07-2023 History of Present illness Narrative* TABITHA [...] 2022 TIME: 2:39 PM documented in this encounterMercy Health Clermont Hospital04-05-2023 Miscellaneous Notes* Telephone Encounter - Akash [...] return call ? Yes documented in this encounterMercy Health Clermont Hospital03-29-2023 Instructions* Patient Instructions* Kelly Perez PA-C [...] perform on same dariusz. documented in this encounterMercy Health Clermont Hospital03-29-2023 Nurse Note* Antonia Tripathi MA - 09/13/2022 10:55 AM EDT Additional intake questions: Has the patient had fever, nausea, vomiting, diarrhea, constipation, fatigue for > 1 week? Yes, diarrhea ( 3 times in last 24 hours), fatigue, and Provider Notified Does the patient have a decreased appetite? No Does patient want to see a [place]? No (yes to any of above refer [...] By: Antonia Tripathi MA documented in this encounterMercy Health Clermont Hospital03-29-2023 History of Present illness Narrative* Kelly Perez PA-C - 09/13/2022 10:44 AM EDT This note was created using Mobile Pulser[employer]. Subjective Shantel Melendez is a 61 year [...] or pronator drift. Coordination: Romberg sign negative. Vagnzo-Xash-Nbswek Test normal. Gait: Gait abnormal. Comments: Slightly [...] which included preparing to see the patient, [id number] patient care, completing clinical documentation, obtaining and/or reviewing separately obtained history, performing a medically appropriate examination, counseling and educating the pat ient/family/caregiver, ordering medications, tests, or procedures, communicating with other HCPs (not separately reported), independently interpreting results (not separately reported), communicatingresults to the patient/family/caregiver, and care coordination (not separately reported). documented in this encounterMercy Health Clermont Hospital03-16-2023 Evaluation note* Encounter Date Diagnosis Assessment [...] her mid twenties. He will see the COILED TUBING SUPERVISOR at Dr. Cadena's office today, and will see the [facility] 09/13/22. I do feel pt needs his FMLA extended until 12/16/22. I encouraged him to continue to follow with these doctors, and we will continue to monitor. [facility] Other 02-14-2023 Evaluation note* Encounter Date Diagnosis [...] pain medication and fever reducers as needed. 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 [facility] Other 10-30-2022 Hospital Discharge instructions Additional Instructions [...] week to see how you are doing. [facility] Work Phone: [phone] 477-841510-10-2022 Miscellaneous Notes* Telephone Encounter - Racquel Cole MD - 03/27/2022 3:54 PM EDT Good with me * Telephone Encounter - Asya Reynolds RN - 03/27/2022 2:17 PM EDT Informed patient of your recommendations. He states that he is seeing neurology in [place] and they do not feel he needs [...] the weekend about an appointment with a [facility] neurosurgeon. He has not seen you since 10/2021. He states st that time you did not see the need for a neurosurgeon as his tumor wastoo small. Now he all of the sudden has an appointment with this F neurosurgeon and is confused. Can you review and advise as to this appointment with the neurosurgeon. Asya Reynolds RN documented in this encounterMercy Health Clermont Hospital09-29-2022 Miscellaneous Notes* Telephone Encounter - Pamela Nascimento APRN.CNP - 03/16/2022 2:51 PM EDT Time Frame: Next available Provider: Intra-axial neurosurgeon & Neuro-Oncology (same day) Referring: Racquel Cole MD Please instruct patient to hand carry/ upload images prior to appt Dx: Low grade glioma Patient: Shantel Melendez Address: Shantel Melendez [id number] [place] [address] Per Triage: Shantel Melendez is a 61 year old male that requests evaluation of previously diagnosed possible low grade glioma. Patient expectations: Second opinion Tumor Specifics: Location: brain Previous Evaluations: MRI w/wo contrast (10/05/21): 10/05/[address] [facility] Impression: 1. There is [...] (HCC) [C71.9 (ICD-10-CM)] Order Questions Question Answer [facility] Brain Tumor [facility] Epic access? Yes documented in this encounterMercy Health Clermont Hospital09-29-2022 Evaluation note* Encounter Date Diagnosis Assessment [...] see if this gives him some relief [facility] Other 08-15-2022 Evaluation note* Encounter Date Diagnosis [...] Patient had another MRI at [facility]. We are awaiting for the results [...] week. We are awaiting for [facility] to fax over the consult and MRI results. Jan,Neck pain (ICD-10 - M54.2) The patients neck pain is persistant but the headache has improved with a medication change. Discussed with Dr. Cadena his persistent neck pain, may need MRI of his neck and/or EMG. Due to his multiple other medications did hold off on any pain medications. [facility] Other 07-11-2022 Evaluation note* Encounter Date Diagnosis [...] blood pressure was elevated upon check in. [facility] Other 06-20-2022 Evaluation note* Encounter Date Diagnosis [...] rule out other causes of his symptoms. [facility] Other 05-24-2022 Evaluation note* Encounter Date Diagnosis [...] will complete the necessary medical disability forms. 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 Narayan, and he is now referring on to [facility]. Reviewed consult note [...] this medication. Will continue to follow up [facility] 05-12-2022 History of Present illness Narrative* Racquel Cole MD - 10/27/2021 5:05 PM EDT Images from the original note were not included. NAME: Shantel Melendez CLINIC NO.: [id number] DATE OF SERVICE: October 27, 2021 Some elements in this clinic note that are critical to medical decision making have been carefully reviewed and included from a prior clinic note dated: October 13, 2021 Referring Provider: Griselda Hastings, DO Additional Clinicians involved in Shantel Melendez's care: Dr Kimberly Nichole ENT, Dr. Ibarra [place] surgery [facility] AMBULATORY TELEPHONE VISIT Shantel Melendez has consented [...] 1.8 mm of invasive disease (Stage I, [id number], HPV+ oropharyngeal SCC).resected T1 N1 base of [...] had a neck dissection at [facility] HPI: Updated Visit, October 27, 2021: [...] COMP METABOLIC PANEL Racquel Cole MD, CPE [place], [place] CC: Griselda Hastings, DO [address] [id number] [address] Harris [facility] ENT. Dr. Nichole ENT Dr. Ibarra CT surgery [facility]. documented in this encounterMercy Health Clermont Hospital05-09-2022 Evaluation note* Encounter Date Diagnosis Assessment [...] him on to see Dr. Jonny Vigil. [facility] Other 05-04-2022 Miscellaneous Notes* Telephone Encounter - Haily Issa - 10/19/2021 12:56 PM EDT Called [facility] Neuro Office spoke with Leslee. She states they have received patient records/referral and have patient scheduled to see Dr Narayan on 10/24. Haily Issa * Telephone Encounter - Asya Gramajo [facility] - 10/18/2021 10:34 AM EDT Records faxed. * Telephone Encounter - Haily Jovel [facility] - 10/13/2021 12:24 PM EDT Noelle: Information ready for you. Haily Issa * Telephone Encounter - Antonia Mcguire - 10/13/2021 10:33 AM EDT Referral to neurosurgery - Dr. Narayan or [facility] Noelle/Layo: Can you please refer patient and follow up? Thanks! Antonia Mcguire documented in this encounterMercy Health Clermont Hospital04-28-2022 History of Present illness Narrative* Racquel Cole MD - 10/13/2021 10:19 AM EDT Images from the original note were not included. NAME: Shantel Melendez CLINIC NO.: [id number] DATE OF SERVICE: October 13, 2021 Some elements in this clinic note that are critical to medical decision making have been carefully reviewed and included from a prior clinic note dated:October 14, 2020 Referring Provider: Griselda Hastings, DO Additional Clinicians involved in Shantel Melendez's care: Dr Kimberly Nichole ENT, Dr. Ibarra [place] surgery [facility] CC: Head and neck cancer ASSESSMENT: 60 [...] 1.8 mm of invasive disease (Stage I, [id number], HPV+ oropharyngeal SCC).resected T1 N1 base of [...] had a neck dissection at [facility] HPI: Updated Visit, October 13, 2021: [...] 2020: Doing well, still smokes, works at [employer]. Reviewed scans and there is no evidence [...] 4. 10/05/[address] [facility] [place]: 1. There is [...] and neck (HCC) Racquel Cole MD, CPE [place], [place] CC: Griselda Hastings, DO [address] [address] [address] NEWMAN ENT[address] Dr[address] Nichole ENT Dr. Ibarra [place] surgery [facility]. [facility] Miscellaneous Notes* Telephone Encounter - Racquel [...] done and they faxed over results. Dr Hsatings would like Dr Mcgregor to review results and discuss things with pt at his appt next week. MRI shows mass and Dr Hastings thinks pt may need referral to [facility] but wanted to let Dr Mcgregor review and decide next steps. Asya Kumar RN documented in this encounter[facility] History of Present illness Narrative* Marilyn [...] 06, 2021 8:07 AM documented in this encounter[facility] Evaluation note* Encounter Date Diagnosis Assessment [...] to continue with monitoring diet and exercise. [facility] Other 03-28-2022 Evaluation note* Encounter Date Diagnosis Assessment Notes Treatment Notes Treatment Clinical Notes Aug, Anxiety and depression (ICD-10 - F41.8) [facility] Other 01-13-2022 Evaluation note* Encounter Date Diagnosis Assessment Notes Treatment Notes Treatment Clinical Notes Jun, Sinusitis (ICD-10 - J32.9) I did prescribe the above medications and work note provided. [facility] Other 01-12-2022 Evaluation note* Encounter Date Diagnosis Assessment Notes Treatment Notes Treatment Clinical Notes Jun, Sinus pressure (ICD-10 - J34.89) Patient advised of negative results. Encouraged him to call if symtpoms persist or worsen, he verbalized understanding. [facility] Other 11-02-2021 Evaluation note* Encounter Date Diagnosis Assessment Notes Treatment Notes Treatment Clinical Notes Apr, Sinus congestion (ICD-10 - R09.8 1) [facility] Other 10-28-2021 Evaluation note* Encounter Date Diagnosis [...] Encouraged patient to continue with their efforts. [facility] Other 12-01-2016 History general Narrative - Reported* Type Description Date Medical History anxiety and depression Medical Vpwsqmo84/2016 EGD and colonoscopyMedical HistoryLabs 10/26/16Medical HistoryPSA (0.510) 10/26/16Medical HistoryNo Stress Test as of 11/09/16Medical Cbfhpmr02/28/19 PSA (0.6)Medical Lndszau05/2021 Stress test ,echocardiogram, 24 hr. holterMedical Hckoncu33/29/21 PSA ( 0.4)Medical Ztfnodm20/2021 Covid + Surgical Historyskin cancer on noseSurgical HistoryEGD and Ppvjmqsrrlm22/2016 Surgical HistorytonsillectomySurgical HistoryHead and neck HPV hjziyom42/2019 Hospitalization Historysee above [facility] Other 12-01-2016 History general Narrative - Reported* Type Description Date Medical History anxiety and depression Medical Jfjnuvq81/2016 EGD and colonoscopyMedical HistoryLabs 10/26/16Medical HistoryPSA (0.510) 10/26/16Medical HistoryNo Stress Test as of 11/09/16Medical Euxsccz95/28/19 PSA (0.6)Medical Lerqicb38/2021 Stress test ,echocardiogram, 24 hr. holterMedical Yppxixl55/29/21 PSA ( 0.4)Medical Ejeflql98/2021 Covid + Surgical Historyskin cancer on noseSurgical HistoryEGD and Oumyczxzusb10/2016 Surgical HistorytonsillectomySurgical HistoryHead and neck HPV jzaqwda27/2019 [facility]Sp[facility]21Hospitalization History see above [facility] Other 12-01-2016 History general Narrative - Reported* Type Description Date Medical History anxiety and depression Medical Gcunmto78/2016 EGD and colonoscopyMedical HistoryLabs 10/26/16Medical HistoryPSA (0.510) 10/26/16Medical HistoryNo Stress Test as of 11/09/16Medical Xhgqhkq74/28/19 PSA (0.6)Medical Iarkmjm20/2021 Stress test ,echocardiogram, 24 hr. holterMedical Aqgkkzc96/29/21 PSA ( 0.4)Medical Szvednj90/2021 Covid + Medical Yqhzogc9605/26/2022 Brain MRISurgical Historyskin cancer on noseSurgical HistoryEGD and Ahuaxmlflzh87/2016Surgical HistorytonsillectomySurgical History Head and neck HPV ohcxacd94/2019Surgical HistorySp[facility] 11/07/2021Hospitalization Historysee above [facility] Other 12-01-2016 History general Narrative - Reported* Type Description Date Medical History anxiety and depression Medical Yzrzzml35/2016 EGD and colonoscopyMedical HistoryLabs 10/26/16Medical HistoryPSA (0.510) 10/26/16Medical HistoryNo Stress Test as of 11/09/16Medical Ndbxqyw60/28/19 PSA (0.6)Medical Zzuaina31/2021 Stress test ,echocardiogram, 24 hr. holterMedical Jxufpnm19/29/21 PSA ( 0.4)Medical Gyemmsa80/2021 Covid + Medical Lqtckve6005/26/2022 Brain MRISurgical Historyskin cancer on nose (squamous cell)Surgical HistoryEGD and Rbbwcrywwqg87/2016Surgical Historytonsillectomy Surgical HistoryHead and neck surgery for oral cancer/lymph node dissection 01/2019Surgical HistorySpinal [facility]/2021Hospitalization Historysee above [facility] Other 12-01-2016 History general Narrative - Reported* Type Description Date Medical History anxiety and depression Medical Rascbvi85/2016 EGD and colonoscopyMedical HistoryLabs 10/26/16Medical HistoryPSA (0.510) 10/26/16Medical HistoryNo Stress Test as of 11/09/16Medical Gainqfk24/28/19 PSA (0.6)Medical Ajtlkfy54/2021 Stress test ,echocardiogram, 24 hr. holterMedical Xbrkuqm66/29/21 PSA ( 0.4)Medical Wkuaczg22/2021 Covid + Medical Wbwcfht3805/26/2022 Brain MRISurgical Historyskin cancer on nose (squamous cell)Surgical HistoryEGD and Gykigssapge58/2016Surgical Historytonsillectomy Surgical HistoryHead and neck surgery for oral cancer/lymph node dissection 01/2019Surgical HistorySpinal [facility]11/07/2021urgical HistoryLP at [facility]08/2022Hospitalization Historysee above [facility] Other 12-01-2016 History general Narrative - Reported* Type Description Date Medical History anxiety and depression Medical Uyrnsxq83/2016 EGD and colonoscopyMedical HistoryLabs 10/26/16Medical HistoryPSA (0.510) 10/26/16Medical HistoryNo Stress Test as of 11/09/16Medical Gwozhyl86/28/19 PSA (0.6)Medical Vmjswbr45/2021 Stress test ,echocardiogram, 24 hr. holterMedical Iiswzwv78/29/21 PSA ( 0.4)Medical Tkbfnlw08/2021 Covid + Medical Xsrowjf7505/26/2022 Brain MRIMedical Xqfdkrz57/2023 PADSurgical History skin cancer on nose (squamous cell)Surgical HistoryEGD and Utpumygtmui50/2016 Surgical HistorytonsillectomySurgical HistoryHead and neck surgery for oral cancer/lymph node qqkjcegdjk01/2019Surgical HistorySpinal tap at [facility]11/07/2021urgical HistoryLP at [facility]08/2022Hospitalization Historysee above [facility] Other 12-01-2016 History general Narrative - Reported* Type Description Date Medical History anxiety and depression Medical Gdchqvk15/2016 EGD and colonoscopyMedical HistoryLabs 10/26/16Medical HistoryPSA (0.510) 10/26/16Medical HistoryNo Stress Test as of 11/09/16Medical Unqlegk36/28/19 PSA (0.6)Medical Emjplqw44/2021 Stress test ,echocardiogram, 24 hr. holterMedical Rhtsmxg95/29/21 PSA ( 0.4)Medical Pfnbemc86/2021 Covid + Medical Gqznnzb0205/26/2022 Brain MRIMedical Vxbcrdk38/2023 PADSurgical History skin cancer on nose (squamous cell)Surgical HistoryEGD and Anulltirmgm55/2016 Surgical HistorytonsillectomySurgical HistoryHead and neck surgery for oral cancer/lymph node qkubsbhiem13/2019Surgical HistorySpinal tap at [facility]11/07/2021urgical HistoryLP at [facility]08/2022Surgical History angioplasty right iliac nkemak67/2023Hospitalization Historysee above [facility] Other 05-19-2009 History of Present illness Narrative* [...] He saw Dr. Ba a neurologist in [facility]. * He describes his vision as seeing 1-1/2 . He describes this does not seem quite to but finding a time lab between moving his eyes and having the visual change. [facility] Work Phone: chief complaint+Reason for visit Narrative* Chief Complaint 2 month 2 month f/uReason for VisitCervical spondylosis History of COVID-19 Nicotine dependence with current use SCC (squamous cell carcinoma) Nicotine dependence with current use Osteoarthritis cervical spine [facility] Work Phone: Clinical Notes [facility] [place] Plan note [facility] [place] noteNo Assessments Information Available [facility]* Diagnosis Glioma of brain (HCC)- Primary Malignant neoplasm of brain, unspecified site Lung nodules Other nonspecific abnormal finding of lung field 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) Malignant neoplasm of head, face, and neck documented in this encounter [facility]* Diagnosis 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 Malignant neoplasm of head, face, and neck Lung nodules Other nonspecific abnormal finding of lung field Malignant neoplasm of head, face and neck (HCC) Malignant neoplasm of head, face, and neck documented in this encounter [facility] HospitalEvaludelaware [facility] noteNo InformationNort Miew Other Evaluation noteNo assessment information available [facility] Work Phone: Evaluation note* Diagnosis Onset Date Resolution Status Migraine acute [facility] Work Phone: Evaluation note* Diagnosis NPH (normal pressure hydrocephalus) (HCC)- Primary Idiopathic normal pressure hydrocephalus (INPH) [facility]* Diagnosis 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HCC)- Primary NPH (normal pressure hydrocephalus) (HCC) Idiopathic normal pressure hydrocephalus (INPH) documented in this encounter [facility]* Diagnosis 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HCC) NPH (normal pressure hydrocephalus) (HCC) Idiopathic normal pressure hydrocephalus (INPH) [facility]* Diagnosis Onset Date Resolution Status Anxiety and depression acuteEssential hypertensionacuteHyperlipidemiaacuteOsteoarthritis cervical spine acutePAD (peripheral artery disease)acute [facility] Work Phone: Evaluation note* Diagnosis 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 Griselda Hastings. 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) Malignant neoplasm of head, face, and neck documented in this encounter [facility] note* Diagnosis Malignant neoplasm of head, face and neck (HCC) Malignant neoplasm of head, face, and neck Lung nodules Other nonspecific abnormal finding of lung field 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) Malignant neoplasm of head, face, and neck Localized swelling, mass or lump of neck Swelling, mass, or lump in head and neck documented in this encounter [facility]* Diagnosis Cervical radiculopathy- Primary Brachial neuritis or radiculitis nos Cervical radiculopathy Brachial neuritis or radiculitis nos Senile osteoporosis Senile osteoporosis documented in this encounter [facility] Work Phone: [phone] note* Diagnosis Cervical radiculopathy- Primary Brachial neuritis or radiculitis nos Status post cervical spinal fusion Arthrodesis status Acute postoperative pain Other acute postoperative pain Muscle spasms of neck documented in this encounter [facility] Work Phone: [phone] note* Diagnosis Other nerve root and plexus disorders- Primary Cervical paraspinal muscle spasm Spasm of muscle Cervical stenosis of spinal canal Spinal stenosis in cervical region [facility] Diagnosis Cervical radiculopathy- Primary Brachial neuritis or radiculitis nos Occipital neuralgia of left side Balance problem Abnormality of gait documented in this encounter [facility] Work Phone: [phone] note* 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 [facility] Work Phone: Evaluation note* 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 [facility] Work Phone: [phone] note* Diagnosis Cervical radiculopathy- Primary Brachial neuritis or radiculitis nos Senile osteoporosis documented in this encounter [facility] Work Phone: [phone] note* Diagnosis Cervical radiculopathy Brachial neuritis or radiculitis nos Senile osteoporosis Cervical radiculopathy Brachial neuritis or radiculitis nos Senile osteoporosis Cervical radiculopathy Brachial neuritis or radiculitis nos Senile osteoporosis documented in this encounter [facility] Work Phone: [phone] note* Diagnosis Cervical radiculopathy Brachial neuritis or radiculitis nos Senile osteoporosis Cervical radiculopathy Brachial neuritis or radiculitis nos Cervical radiculopathy Brachial neuritis or radiculitis nos Senile osteoporosis documented in this encounter [facility] Work Phone: Evaluation note* Diagnosis Cervical radiculopathy Brachial neuritis or radiculitis nos Senile osteoporosis Cervical radiculopathy Brachial neuritis or radiculitis nos Cervical radiculopathy Brachial neuritis or radiculitis nos Senile osteoporosis documented in this encounter [facility] Work Phone: Evaluation note* Diagnosis Status post cervical spinal fusion- Primary Arthrodesis status documented in this encounter [facility] Work Phone: Evaluation note* Diagnosis Nerve root and plexus disorder, unspecified- Primary documented in this encounter [facility]* Diagnosis Nerve root and plexus disorder, unspecified- Primary [facility] encounter [facility]* Diagnosis Nerve root and plexus disorder, unspecified- Primary [facility] encounter [facility]* Diagnosis Status post cervical spinal fusion- Primary Arthrodesis status documented in this encounter [facility] Work Phone: Evaluation note* Diagnosis 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 Malignant neoplasm of head, face, and neck [facility] Diagnosis 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) Malignant neoplasm of head, face, and neck [facility]* Diagnosis Nerve root and plexus [...] shoulder documented in this encounter [facility] HealthcareEvaluation note* Diagnosis Other nerve root and plexus disorders- Primary Acute pain of left shoulder Acute pain of right shoulder documented in this encounter [facility] HealthcareHospital Discharge instructions Additional Instructions Obtain Elsy pot and perform nasal irrigations twice a dayUniversity Hospitals [facility] Work Phone: Hospital Discharge instructions Additional Instructions Please return to emergency department for any new or worrisome symptoms including any chest pain, shortness of breath, vomiting, fever. Take all antibiotics even if you start feeling better.[facility] Work Phone: Hospital Discharge instructions Additional Instructions Push fluids Zofran for nausea vomiting Follow-up with the GI specialist as discussed for possible colonoscopy Return here if any problems persist or worsen If you are able to collect a urine specimen take it to the lab.[facility] Work Phone: Reason for referral (narrative)* Diagnostic Procedure Only (Routine) - ClosedSpecialtyDiagnoses / ProceduresReferred By Contact Referred To ContactCT IMAGING Diagnoses Malignant neoplasm of head, face and neck (HCC) Lung nodules 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) Localized swelling, mass or lump of neck Procedures CT CHEST W IVCON CAT SCAN OF CHEST CONTRAST Racquel Cole MD [address] [place] [address] [place] [address] [place] [address] Referral IDStatusReasonStart DateExpiration DateVisits RequestedVisits [id number] Auto-Generated Referral / * Diagnostic Procedure Only (Routine) - ClosedSpecialtyDiagnoses / Procedures Referred By ContactReferred To ContactCT IMAGING Diagnoses Malignant neoplasm of head, face and neck (HCC) Lung nodules 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) Localized swelling, mass or lump of neck Procedures CT NECK SOFT TISSUE W IVCON CONTRAST CAT OF NECK TISSUE Racquel Cole MD [address] [place] [address] [place] [address] [place] [address] Referral IDStatusReasonStart DateExpiration DateVisits RequestedVisits [id number] Auto-Generated Referral / [facility] HospitalReason for referral (narrative)No reason for referral information availableUniversity Hospitals Health System Work Phone: Reason for visit Narrative* Auth/CertSpecialty Diagnoses / ProceduresReferred By ContactReferred To Contact Diagnoses Cervical radiculopathy Senile osteoporosis Cervical radiculopathy [M54.12] Senile osteoporosis [M81.0] Procedures OK ARTHRD ANT INTERBODY DECOMPRESS CERVICAL BELW C2 OK ARTHRD ANT INTERBODY DECOMPRESS CERVICAL BELW C2 OK ARTHRD ANT INTERDY CERVCL BELW C2 EA ADDL NTRSPC OK ALLOGRAFT FOR SPINE SURGERY ONLY STRUCTURAL OK MICROSURG TQS REQ USE OPERATING MICROSCOPE Fusion Spine Anterior Cervical and Discectomy C5-6, C6-7 Doretha Harris MD [address] [facility], [facility] [address] [place] [address] Phone: tel: fax: [facility] [place] [address] [place] [address] fax: Referral IDStatusReasonStart DateExpiration DateVisits RequestedVisits [id number] [facility] Work Phone: Reason for visit Narrative* Injection (Routine) - ClosedSpecialtyDiagnoses / ProceduresReferred By ContactReferred To Contact Neurology Diagnoses Acute pain of left shoulder Procedures OK OFFICE/OUTPATIENT NEW HIGH MDM 60 MINUTES Oziel Cadena MD [address] [facility] [address] [place] [address] Phone: tel: fax: Oziel Cadena MD [address] [facility] [address] [place] [address] Phone: tel: fax: Referral IDStatusRemaddieStsuzy DateExpiration DateVisits RequestedVisits [id number] Perform Procedure / [facility] Summary Purpose [...] RecordedPatient RepresentativeExplanationLiving Will10/05/2023 9:39 AM Date ActivatedDate LyzeaxlxdjdXipionkh27/23/2024 6:57 PMQuestionAnswerComments Plan of Care:* Code Status Discussion Completed Decision Maker:* Patient Date ActivatedDate AplfnclndyaCasovykz14/23/2024 11:50 AM04/09/2024 6:57 PM QuestionAnswerCommentsPlan of Care:* Code Status Discussion Completed Decision Maker:* Patient Date ActivatedDate FchtqwlgvztVacqfgff59/23/2024 6:57 PMQuestionAnswerComments Plan of Care:* Code Status Discussion Completed Decision Maker:* Patient Date ActivatedDate GcpbsffrysfUghqkjof00/23/2024 11:50 AM04/09/2024 6:57 PM QuestionAnswerCommentsPlan of Care:* [...] 3:14 pm GERD (gastroesophageal reflux disease) J [facility] 2024 3:14pm Chief Complaint Admit Date B33.8 [...] Sep tem2024 10:28am PAD (peripheral artery disease) [facility] Screening for prostate cancer February 19, 2025 10:28am Chief Complaint Admit Date follow up Dyspepsia/GERD January 12, 2025 3:14pm medicare wellness February 19, 2025 10:28am I73.9 February 26, 2025 1:18pm Reason for Visit Admit Date Colon polyps January 12, 2025 3:14 pm Dyspepsia January 12, 2025 3:14 pm GERD (gastroesophageal reflux disease) J [facility] 2024 3:14pm Anxiety and depression February [...] Sep 2024 10:28am PAD (peripheral artery disease) [facility] [place] 10:28[place] S/P cervical discectomy February 19, 2 025 10:28am Screening for prostate cancer February 19, 2025 10:28am Burning sensation April 01, 2025 1 :42pm Hypertension April 01, 2025 1 :42pm Assessments No Assessments Information Available Reason for Referral SpecialtyDiagnoses / ProceduresReferred By ContactReferred To Contact Neurosurgery Diagnoses Glioma of brain (HCC) Procedures CONSULT TO NEUROSURGERY OFFICE/OUTPATIENT [facility] 60-74 MINUTES Racquel Cole MD [address] [place] [address] [place] [address] Referral IDStatusReasonStart DateExpiration DateVisits RequestedVisits [id number] PCP Requested Referral /[id number] / ProceduresReferred By ContactReferred To ContactCT IMAGING Diagnoses Lung nodules Procedures CT CHEST W IVCON DIAGNOSTIC COMPUTED TOMOGRAPHY THORAX W/CONTRAST Abhyankar, Racquel, MD [address] [place] [address] Ct Imaging Referral IDStatusReasonStart DateExpiration DateVisits RequestedVisits [id number] Review Auto-Generated Referral [id number] / ProceduresReferred By ContactReferred To ContactCT IMAGING Diagnoses Malignant neoplasm of head, face and neck (HCC) Procedures CT NECK SOFT TISSUE W IVCON CT SOFT TISSUE NECK W/CONTRAST MATERIAL Racquel Cole MD [address] [place] [address] Ct Imaging Referral IDStatusReasonStart DateExpiration DateVisits RequestedVisits [id number] Review Auto-Generated Referral Reason *FU 10/31 Evaluate and Treat Brainstem Lesion 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 [facility] [place] [place],[address] Referral Priority Routine SpecialtyDiagnoses / ProceduresReferred By ContactReferred To ContactMR IMAGING Diagnoses 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HCC) Procedures MRI BRAIN WO/W IVCON MRI BRAIN BRAIN STEM W/O W/CONTRAST MATERIAL Kelly Perez PA-C [address] [place] [address] Mr Imaging Referral IDStatusReasonStart DateExpiration DateVisits RequestedVisits [id number] Auto-Generated Referral /[id number] IDStatusReasonStart DateExpiration DateVisits RequestedVisits [id number] Auto-Generated Referral / Reason pt requesting n ot Dr. Verma, but can see other providers from that group evaluate and treat tinnitus and balance issues Diagnosis 1 Tinnitus of both ear s (H93.13) Diagnosis 2 Balance disorder (R2 6.89) Referral Organization [facility] Cardiology Referring Provider First Name Lilliam Referring Provider Last Name Kamla Referring Provider Specialty Cardiovascu lar Disease Referred Organization [facility] Referred Provider Manuela Ballesteros Referred Address ,[place], [place],[address] Referred Provider Specialty Ear, Nose an d Throat Referral Priority Routine General Notes Yessica Brown 12:40:36 PM >received today, pt has medicaid insurance, will send to Dr. Ballesteros, attachments made, waiting for notes to be locked Reason consult and treat Diagnosis 1 PAD (peripheral arnie ry disease) (I73.9) Referral Organization [facility] Family Medicin e Joliet Referring Provider First Name Griselda Referring Provider Last Name Darling Referring Provider Specialty Family Prac henny Referred Organization [facility] Vascular Surge ry Referred Provider Filipe Hess Referred Address [address] [place] [address],[place], [place],[address] Referred Provider Specialty Vascular Abdirahman yvon Referral Priority Routine General Notes Linnea Alvarado M 023 11:58:24 AM >Received today and sent P2P SpecialtyDiagnoses / ProceduresReferred By ContactReferred To ContactCT IMAGING Diagnoses 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) Procedures CT CHEST W IVCON DIAGNOSTIC COMPUTED TOMOGRAPHY THORAX W/CONTRAST Racquel Cole MD [address] [place] [address] [place] [address] [place] [address] Referral IDStatusReasonStart DateExpiration DateVisits RequestedVisits [id number] Auto-Generated Referral [id number] / ProceduresReferred By ContactReferred To ContactCT IMAGING Diagnoses 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) Procedures CT NECK SOFT TISSUE W IVCON CT SOFT TISSUE NECK W/CONTRAST MATERIAL Racquel Cole MD [address] [place] [address] [address] [place], [facility] Ct Imaging [facility] Referral IDStatusReasonStart DateExpiration DateVisits RequestedVisits [id number] Auto-Generated Referral 1Referral IDStatusReasonStart DateExpiration DateVisits RequestedVisits [id number] Auto-Generated Referral 1Referral IDStatusReasonStart DateExpiration DateVisits RequestedVisits [id number] Auto-Generated Referral [id number] / ProceduresReferred By ContactReferred To ContactCT IMAGING Diagnoses Lung nodules Procedures CT CHEST W IVCON DIAGNOSTIC COMPUTED TOMOGRAPHY THORAX W/CONTRAST Racquel Cole MD [address] [place] [address] [place] [address] Ct Imaging [facility] Referral IDStatusReasonStart DateExpiration DateVisits RequestedVisits [id number] Auto-Generated Referral /[id number] / ProceduresReferred By ContactReferred To ContactCT IMAGING Diagnoses Malignant neoplasm of head, face and neck (HCC) Procedures CT NECK SOFT TISSUE W IVCON CT SOFT TISSUE NECK W/CONTRAST MATERIAL Racquel Cole MD [address] [place] [address] [place] [address] [place] [address] Referral IDStatusReasonStart DateExpiration DateVisits RequestedVisits [id number] Auto-Generated Referral /[id number] / ProceduresReferred By ContactReferred To ContactRadiology 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 [place] [address] [place] [address] Referral IDStatusReasonStart DateExpiration DateVisits RequestedVisits [id number] Review Perform Procedure /[id number] / ProceduresReferred By ContactReferred To ContactRadiology 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 tumor perfusion protocol w and wo IV contrast Shimon Heaton PA-C [address] [place] [id number] Referral IDStatusReasonStart DateExpiration DateVisits RequestedVisits [id number] Perform Procedure [id number] / ProceduresReferred By ContactReferred To ContactRadiology Diagnoses Cervical radiculopathy Procedures XR cervical spine complete 6+ views Doretha Harris MD [address] [facility], [place] [phone] Referral IDStatusEdnaasonStart DateExpiration DateVisits RequestedVisits [id number] Perform Procedure [id number] / ProceduresReferred By ContactReferred To ContactRadiology Diagnoses Senile osteoporosis Procedures XR DEXA bone density axial skeleton w VFA Doretha Harris MD [address] [facility], [address] [address] Referral IDStatusReasonStart DateExpiration DateVisits RequestedVisits [id number] Review Perform Procedure /[id number] / ProceduresReferred By ContactReferred To Contact Diagnoses Cervical radiculopathy Senile osteoporosis Procedures ECG 12 lead Doretha Harris MD [address] [facility], [address] [place] [address] Referral IDStatusReasonStart DateExpiration DateVisits RequestedVisits [id number]/24/20247/24/[id number] / Procedures Referred By ContactReferred To ContactRadiology Diagnoses Cervical radiculopathy Procedures XR DEXA bone density Doretha Harris MD [address] [facility], [address] [place] [address] Referral IDStatusReasonStart DateExpiration DateVisits RequestedVisits [id number] Perform Procedure Chief Complaint Patient referred by [...] section and content) DATE CREATED AUTHOR 08/01/2019 [facility] DATE CREATED AUTHOR AUTHOR'S ORGANIZ ATION 11/05/2021 [facility] DATE CREATED AUTHOR AUTHOR'S ORGANIZ ATION 01/19/2022 [facility] Commercial Collections Specialist DATE CREATED AUTHOR AUTHOR'S ORGANIZ ATION 10/02/2022 [facility] DATE CREATED AUTHOR AUTHOR'S ORGANIZ ATION 12/25/2022 [facility] DATE CREATED AUTHOR AUTHOR'S ORGANIZ ATION 08/03/2023 [facility] DATE CREATED AUTHOR AUTHOR'S ORGANIZ ATION 02/13/2024 [facility] DATE CREATED AUTHOR AUTHOR'S ORGANIZ ATION 10/27/2024 [facility] DATE CREATED AUTHOR AUTHOR'S ORGANIZ ATION 11/13/2024 [facility] DATE CREATED AUTHOR AUTHOR'S ORGANIZ ATION 01/01/2025 [facility] DATE CREATED AUTHOR AUTHOR'S ORGANIZ ATION 01/03/2025 [facility] DATE CREATED AUTHOR AUTHOR'S ORGANIZ ATION 03/21/2025 [facility] DATE CREATED AUTHOR AUTHOR'S ORGANIZ ATION 03/23/2025 [facility] Medical Specialists [facility] DATE CREATED AUTHOR AUTHOR'S ORGANIZ ATION 04/03/2025 [facility] DATE CREATED AUTHOR AUTHOR'S ORGANIZ ATION 04/07/2025 [facility] Source Comments (unrecognize d section and content) In the event this informatio n is protected by the Federal Confidentiality of Alcohol and Drug Abuse Patient Records regulations: The Federal rules restrict any use of the information to criminally investigate or prosecute any alcohol or drug abuse patient.[facility] Hospital[facility] the event this information is protected by the Federal Confidentiality of Alcohol and Drug Abuse Patient Records regulations: The Federal rules restrict any use of the information to criminally investigate or prosecute any alcohol or drug abuse patient.[facility] HospitalIn the event this information is protected by the Federal Confidentiality of Alcohol and Drug Abuse Patient Records regulations: The Federal rules restrict any use of the information to criminally investigate or prosecute any alcohol or drug abuse patient.[facility] HospitalIn the event this information is protected by the Federal Confidentiality of Alcohol and Drug Abuse Patient Records regulations: The Federal rules restrict any use of the information to criminally investigate or prosecute any alcohol or drug abuse patient.[facility] HospitalIn the event this information is protected by the Federal Confidentiality of Alcohol and Drug Abuse Patient Records regulations: The Federal rules restrict any use of the information to criminally investigate or prosecute any alcohol or drug abuse patient.[facility] HospitalIn the event this information is protected by the Federal Confidentiality of Alcohol and Drug Abuse Patient Records regulations: The Federal rules restrict any use of the information to criminally investigate or prosecute any alcohol or drug abuse patient.[facility] HospitalIn the event this information is protected by the Federal Confidentiality of Alcohol and Drug Abuse Patient Records regulations: The Federal rules restrict any use of the information to criminally investigate or prosecute any alcohol or drug abuse patient.[facility] HospitalIn the event this information is protected by the Federal Confidentiality of Alcohol and Drug Abuse Patient Records regulations: The Federal rules restrict any use of the information to criminally investigate or prosecute any alcohol or drug abuse patient.[facility] HospitalIn the event this information is protected by the Federal Confidentiality of Alcohol and Drug Abuse Patient Records regulations: The Federal rules restrict any use of the information to criminally investigate or prosecute any alcohol or drug abuse patient.[facility] HospitalIn the event this information is protected by the Federal Confidentiality of Alcohol and Drug Abuse Patient Records regulations: The Federal rules restrict any use of the information to criminally investigate or prosecute any alcohol or drug abuse patient.[facility] HospitalIn the event this information is protected by the Federal Confidentiality of Alcohol and Drug Abuse Patient Records regulations: The Federal rules restrict any use of the information to criminally investigate or prosecute any alcohol or drug abuse patient.[facility] HospitalIn the event this information is protected by the Federal Confidentiality of Alcohol and Drug Abuse Patient Records regulations: The Federal rules restrict any use of the information to criminally investigate or prosecute any alcohol or drug abuse patient.[facility] HospitalIn the event this information is protected by the Federal Confidentiality of Alcohol and Drug Abuse Patient Records regulations: The Federal rules restrict any use of the information to criminally investigate or prosecute any alcohol or drug abuse patient.[facility] HospitalIn the event this information is protected by the Federal Confidentiality of Alcohol and Drug Abuse Patient Records regulations: The Federal rules restrict any use of the information to criminally investigate or prosecute any alcohol or drug abuse patient.[facility] HospitalIn the event this information is protected by the Federal Confidentiality of Alcohol and Drug Abuse Patient Records regulations: The Federal rules restrict any use of the information to criminally investigate or prosecute any alcohol or drug abuse patient.[facility] Reason for Visit (unrecogniz ed section and content) ReasonCommentsResultsReasonCommentsHead and Neck CancerSpecialtyDiagnoses / ProceduresReferred By ContactReferred To ContactHematology/Oncology / HEMATOLOGY/ONCOLOGY Diagnoses Follow-up examination 1 year follow up LABS WITH CT Procedures EST PATIENT Racquel Cole MD [address] [place] [address] [place] [address] Racquel Cole MD [address] [place] [address] [address] [place] [id number] Referral IDStatusReasonStart DateExpiration DateVisits RequestedVisits [id number]/28/202212/31/[id number]d Information NeurosurgeryReasonCommentsEstablished PatientSpecialtyDiagnoses / Procedures Referred By ContactReferred To ContactHematology/Oncology / HEMATOLOGY/ONCOLOGY Diagnoses 2 week phone follow up [phone] Procedures PHYS/QHP TELEPHONE EVALUATION 5-10 MIN PROVIDER SPECIALTY PHONE CALL Racquel Cole MD [address] [place] [address] [place] [address] Racquel Cole MD [address] [place] [address] [place] [address] Referral IDStatusReasonStart DateExpiration DateVisits RequestedVisits [id number]/12/202212/31/[id number]iokxld Referral--oldReasonCommentsAppointmentReasonCommentsNew PatientSpecialty Diagnoses / ProceduresReferred By ContactReferred To ContactNeurology / BRAIN TUMOR Diagnoses Hydrocephalus (HCC) Hydrocephalus Procedures OFFICE/OUTPATIENT NEW MODERATE MDM 45-59 MINUTES [facility] Oziel Cadena MD [address] [facility] [address] [place] [address] Kelly Perez PA-C [address] [place] [address] Referral IDStatusReasonStart DateExpiration DateVisits RequestedVisits [id number]/29/202312/31/[id number] Question ReasonCommentsRadiology MRISpecialtyDiagnoses / ProceduresReferred By Contact Referred To ContactMR IMAGING Diagnoses 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HCC) Procedures MRI BRAIN WO/W IVCON MRI BRAIN BRAIN STEM W/O W/CONTRAST MATERIAL Kelly Perez PA-C [address] [place] [address] Mr Imaging Referral IDStatusReasonStlamar DateExpiration DateVisits RequestedVisits [id number] Auto-Generated Referral /[id number] Patient VisitReasonCommentsHead and Neck Cancer1 year follow upReasonCommentsRadiology CTSpecialtyDiagnoses / Procedures Referred By ContactReferred To ContactCT IMAGING Diagnoses 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) Procedures CT NECK SOFT TISSUE W IVCON CT SOFT TISSUE NECK W/CONTRAST MATERIAL Racquel Cole MD [address] [place] [address] [place] [address] Ct Imaging [place] [address] Referral IDStatusReasonStart DateExpiration DateVisits RequestedVisits [id number] Auto-Generated Referral /[id number] / ProceduresReferred By ContactReferred To ContactCT IMAGING Diagnoses Lung nodules Procedures CT CHEST W IVCON DIAGNOSTIC COMPUTED TOMOGRAPHY THORAX W/CONTRAST Abhyankar, Racquel, MD [address] [place] [address] [place] [address] Ct Imaging [facility] Referral IDStatusReasonStart DateExpiration DateVisits RequestedVisits [id number] Auto-Generated Referral /[id number] / ProceduresReferred By ContactReferred To ContactCT IMAGING Diagnoses Malignant neoplasm of head, face and neck (HCC) Lung nodules 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) Localized swelling, mass or lump of neck Procedures CT NECK SOFT TISSUE W IVCON CONTRAST CAT OF NECK TISSUE Racquel Cole MD [address] [place] [address] [place] [address] [address] Imaging [place] [address] Referral IDStatusReasonStart DateExpiration DateVisits RequestedVisits [id number] Auto-Generated Referral /[id number] PainTinglingNumbnessSpecialtyDiagnoses / ProceduresReferred By ContactReferred To ContactRadiology 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 tumor perfusion protocol w and wo IV contrast Shimon Heaton, BILLY [address] [place] [id number] Referral IDStatusReasonStart DateExpiration DateVisits RequestedVisits [id number] Perform Procedure /[id number] PainSpecialtyDiagnoses / ProceduresReferred By ContactReferred To Contact Diagnoses Cervical radiculopathy Senile osteoporosis Procedures ECG 12 lead Doretha Harris MD [address] [facility], [facility] [address] [place] [address] Referral IDStatusReasonStart DateExpiration DateVisits RequestedVisits [id number]/24/20247/24/[id number] / Procedures Referred By ContactReferred To ContactRadiology Diagnoses Cervical radiculopathy Procedures XR cervical spine complete 6+ views Doretha Harris MD [address] [facility], [facility] [address] [place] [address] Referral IDStatusReasonStart DateExpiration DateVisits RequestedVisits [id number] Perform Procedure [id number] / ProceduresReferred By ContactReferred To ContactRadiology Diagnoses Cervical radiculopathy Procedures XR DEXA bone density Doretha Harris MD [address] [facility], [facility] [address] [place] [address] Referral IDStatusReasonStart DateExpiration DateVisits RequestedVisits [id number] Perform Procedure [id number]-md Spine SurgeryPain in left shoulder. 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) Procedures CT CHEST W IVCON DIAGNOSTIC COMPUTED TOMOGRAPHY THORAX W/CONTRAST Racquel Cole MD [address] [place] [address] [place] [address] Phone: tel: fax: [place] [address] Referral IDStatusReasonStlamar DateExpiration DateVisits RequestedVisits [id number] Auto-Generated Referral /[id number] Check Care Teams (unrecognized sec tion and content) Team MemberRelationshipSpecialtyStart DateEnd Date Griselda Hastings [address] [place] [phone] PCP - GeneralFamily Practice11/20/18 Griselda Hastings [address] [place] [address] [place] [address] ReferringFamily Practice11/20/18Team MemberRelationshipSpecialtyStart DateEnd Date Griselda Hastings [address] [place] [address], [place] [address] PCP - GeneralFamily Practice11/20/18 Griselda Hastings [address] [place] [address], [place] [address] ReferringFamily Practice11/20/18Team MemberRelationshipSpecialtyStart DateEnd Date Griselda Hastings [address] [place] [address], [phone] PCP - GeneralFamily Practice11/20/18 Griselda Hastings [address] [place] [address], [phone] ReferringFamily Practice11/20/18Team MemberRelationshipSpecialtyStart DateEnd Date Griselda Hastings [address] [place] [address], [phone] PCP - GeneralFamily Practice11/20/18 Griselda Hatsings [address] [place] [address], [place] [address] ReferringFamily Practice11/20/18Team MemberRelationshipSpecialtyStart DateEnd Date Griselda Hastings [address] [place] [address], [place] [address] PCP - GeneralFamily Medicine11/20/18 Griselda Hastings [address] [place] [address], [place] [address] ReferringFamily Medicine11/20/18Team MemberRelationshipSpecialtyStart DateEnd Date Griselda Hastings [address] [place], [place] [phone] PCP - GeneralFamily Medicine11/20/[address] [address] [facility]11/20/18 Team Status: Inactive Member Role Status Dates Griselda Hastings , DO Primary Care Provider Active Elias Kingsley ProviderActive Team Status: Active Member Role Status Dates Griselda Hastings , DO Primary Care Provider Active Rafa Cuevas ProviderActive Team Status: Active Member Role Status Dates Griselda Hatsings , DO Primary Care Provider Active Team Status: Inactive Member Role Status Dates Griselda Hastings , DO Primary Care Provider Active Danielle Ortiz Jr ProviderActive Team Status: Active Member Role Status Dates Griselda Hastings , DO Primary Care Provider Active Nikole Mota APRN COILED TUBING SUPERVISOR-CAttending ProviderActive Team Status: Inactive Member Role Status Dates Griselda Hastings , DO Primary Care Provider Active Jasson Cuevasending ProviderActive Team Status: Inactive Member Role Status Dates Griselda Hastings , DO Primary Care Provider Active Nikole Mota , BAILEY COILED TUBING SUPERVISOR-CAttending ProviderActiveTeam MemberRelationship SpecialtyStart DateEnd Date Griselda Hastings [address] [place], [place] [phone] PCP - [facility]Fl[facility] Centerly Medicine11/20/18 Griselda Hastings [address] [place] [phone] ReferringFamily Medicine11/20/18 Oziel Cadena MD [address] [facility] [place] [address] ReferringNeurology08/18/22Team MemberRelationshipSpecialtyStart DateEnd [facility] Griselda Hastings [address] [place] [address], [place] [address] PCP - GeneralFamily Medicine11/20/18 Griselda Hastings [address] [place] [address], [place] [address] ReferringFamily Medicine11/20/18 Oziel Cadena MD [address] [facility] [address] [place] [address] ReferringNeurology08/18/22Team MemberRelationshipSpecialtyStart DateEnd [facility] Griselda Hastings [address] [place] [address], [place] [address] PCP - Generalmily Medicine11/20/[address] [place] [address] ReferringFami Medicine11/20/18 Oziel Cadena MD [address] [facility] [address] [address] ReferringNeurology08/18/22 Team Status: Inactive Member Role Status [...] Hastings , DO Primary Care Provider Active Rfaa Hogan ProviderActive Team Status: Inactive Member Role Status Dates Griselda Hastings , DO Primary Care Provider Active Rafa Mendoza ProviderActiveTeam MemberRelationship SpecialtyStart DateEnd Date Griselda Hastings DO [address] [facility] [place] [address] PCP - [facility]02/13/23Team MemberRelationshipSpecialtyStart DateEnd Date Griselda Hastings DO [address] [facility] [place] [address] PCP - [facility]02/13/23 Team Status: Inactive Member Role Status Poornima Hastings DO Primary Care Provider Active Sta rt: May 04, 2023 End: May 04, 2023Nikole Mota APRN COILED TUBING SUPERVISOR-CAttending Provider ActiveStart: May 04, 2023 End: May [...] General01/03/19Team MemberRelationshipSpecialtyStart DateEnd Griselda Fishman DO [facility] [address] [place] [address] PCP - General01/03/19 [place] [address] [place] [address] Consulting PhysicianHematology and Oncology10/05/23 Team Status: Inactive [...] 29, 2023Team MemberRelationshipSpecialtyStart DateEnd Date Griselda Hastings [address] [place], [place] [phone] PCP - Generalmi Medicine11/20/18 Griselda Hastings [address] [place], [place] [phone] Referringmi Medicine11/20/18 Oziel Cadena MD [address] [facility] [address] [address] ReferringNeurology08/18/22 Team Status: Active Member Role Status Dates Lilliam Cason MD Investment Representative Active Saira Stewart ProviderActive Team Status: Inactive Member Role Status Dates Griselda Hastings DO Primary Care Provide r, Attending Provider Active Start: December 03, 2023 End: December 03, 2023 Team Status: Inactive Member Role Status Dates Griselda Hastings DO Primary Care Provide r, Attending Provider Active Start: January 31, 2024 End: January 31, 2024Team MemberRelationshipSpecialtyStart DateEnd Date Griselda Hastings [address] [place] [phone] PCP - [facility] [facility]11/20/18 Griselda Hastings [address] [place] [phone] ReferringFamily Medicine11/20/18 Oziel Cadena MD [address] [facility] [address] [place] [address], [place] [address] ReferringNeurology08/18/22Team MemberRelationshipSpecialtyStart DateEnd Date Griselda Hastings [address] [place] [phone] PCP - GeneralFamily Medicine11/20/18 Griselda Hastings [address] [place] [phone] ReferringFamily Medicine11/20/18 Oziel Cadena MD [address] [facility] [address] [place] [address], [place] [address] ReferringNeurology08/18/22Team MemberRelationshipSpecialtyStart DateEnd Date Griselda Hastings [address] [place] [phone] PCP - GeneralFamily Medicine11/20/18 Griselda Hastings [address] [place] [phone] ReferringFamily Medicine11/20/18Team MemberRelationshipSpecialtyStart DateEnd Date Griselda Hastings DO [address] [place] [address] PCP - General01/03/19 [place] [address] [place] [address] Consulting PhysicianHematology and Oncology10/05/23 Solomon Narayanan PA-C [address] [facility], [address] [address] Physician AssistantNeurosurlamberty12/12/23 Team Status: Inactive Member Role Status Dates Griselda Hastings DO Primary Care Provide r, Attending Provider Active Start: April 01, 2024 End: April 01, 2024Team MemberRelationshipSpecialtyStart DateEnd Date Griselda Hastings DO [address] [place] [address] PCP - General01/03/19 [place] [address] [place] [address] Consulting PhysicianHematology and Oncology10/05/23 Solomon Narayanan PA-C [address] [facility], [address] [address] Physician AssistantYasmeen12/12/23Team MemberRelationshipSpecialtyStart Date End Date Griselda Hastings DO [address] [place] [address] PCP - General01/03/19 [place] [address] [place] [address] Consulting PhysicianHematology and Oncology10/05/23 Solomon Narayanan PA-C [address] [place] [address] Physician AssistantNeurosurgery12/12/23 Team Status: Inactive Member Role Status Dates Griselda Hastings DO Primary Care Provider Active Sta rt: April 28, 2024 End: April 28, 2024LinJasson Estevezending ProviderActiveStart: April 28, 2024 End: April 28, 2024Team MemberRelationshipSpecialtyStart DateEnd Date Griselda Hastings DO [address] [place] [address] PCP - [facility]Floyd [facility] Centerly Medicine02/13/23Team MemberRelationshipSpecialtyStart DateEnd Date Griselda Hastings DO [address] [place] [address] PCP - GeneralFami Medicine02/13/23Team MemberRelationshipSpecialtyStart DateEnd Date Griselda Hastings DO [address] [place] [address] PCP - General01/03/19 [place] [address] [place] [address] Consulting PhysicianHematology and Oncology10/05/23 Solomon Narayanan PA-C [address] [facility], [address] [place] [address] Physician AssistantNeurosurgery12/12/23Team MemberRelationshipSpecialtyStart Date End Date Griselda Hastings DO [address] [place] [address] PCP - General7/19/19 [place] [address] [place] [address] Consulting PhysicianHematology and Oncology10/05/23 Solomon Narayanan PA-C [address] [facility], [address] [address] Physician AssistantNeurosurgery12/12/23Team MemberRelationshipSpecialtyStart Date End Date Griselda Hastings DO [address] [place] [address] PCP - General01/03/19 [place] [address] [place] [address] Consulting PhysicianHematology and Oncology10/05/23 Solomon Narayanan PA-C [address] [facility], [address] [address] Physician AssistantNeurosurgery12/12/23Team MemberRelationshipSpecialtyStart Date End Date Griselda Hastings DO [address] [place] [address] PCP - General01/03/19 [place] [address] [place] [address] Consulting PhysicianHematology and Oncology10/05/23 Solomon Narayanan PA-C [address] [facility], [address] [address] Physician AssistantNeurosurgery12/12/23Team MemberRelationshipSpecialtyStart Date End Date Griselda Hastings DO [address] [place] [address] PCP - General01/03/19 [place] [address] [place] [address] Consulting PhysicianHematology and Oncology10/05/23 Solomon Narayanan PA-C [address] [facility], [address] [address] Physician AssistantNeurosurlamberty12/12/23Team MemberRelationshipSpecialtyStart Date End Date Griselda Hastings DO [address] [place] [address] PCP - General01/03/19 [place] [address] [place] [address] Consulting PhysicianHematology and Oncology10/05/23 Solomon Narayanan PA-C [address] [facility], [address] [address] Physician AssistantNeurosurlamberty12/12/23 Team Status: Inactive Member Role Status Dates Griselda Hastings DO Primary Care Provider Active Sta rt: June 24, 2024 End: June 24, 2024Mingo Blanton ProviderActiveStart: June 24, 2024 End: June 24, 2024Team MemberRelationshipSpecialtyStart DateEnd Date Griselda Hastings DO [address] [place], [place] [phone] PCP - General01/03/19 [place] [address] [place] [address] Consulting PhysicianHematology and Oncology10/05/23 Solomon Narayanan PA-C [address] [place] [address] Physician AssistantNeurosurgery12/12/23Team MemberRelationshipSpecialtyStart Date End Date Griselda Hastings DO [address] [place] [address] PCP - GeneralFamily Medicine02/13/23 Team Status: Inactive Member Role Status Dates Griselda Hastings DO Primary Care Provide r, Attending Provider Active Start: July 03, 2024 End: July 03, 2024Team MemberRelationshipSpecialtyStart DateEnd Date Griselda Hastings DO [address] [place] [address] PCP - GeneralFamily Medicine02/13/23Team MemberRelationshipSpecialtyStart DateEnd Date Griselda Hastings DO [address] [place] [address] PCP - GeneralFanmly Medicine02/13/23 Team Status: Active Member Role Status Dates Griselda Hastings DO Primary Care Provider Active Sta rt: September 11, 2024 Jasson [facility] ProviderActiveStart: September 11, 2024 Team Status: Inactive Member Role Status Dates Griselda Hastings DO Primary Care Provider Active Sta rt: September 11, 2024 End: September 11, 2024Keysha Guy COILED TUBING SUPERVISOR-CAttending ProviderActiveStart: September 11, 2024 End: September 11, 2024Team MemberRelationshipSpecialtyStart DateEnd Date Griselda Hastings DO [facility] [place] [address] PCP - [facility]02/13/23 Team Status: Inactive Member Role Status [...] DateEnd Date Griselda Hastings DO PCP - [facility]02/13/23 Team Status: Inactive Member Role Status [...] Team Status: Active Member Role Status Poornima aHstings DO Primary Care Provider Active Sta rt: [...] DateEnd Date Griselda Hastings DO [address] [place] [address] PCP - General01/03/19 [place] [address] [place] [address] Consulting PhysicianHematology and Oncology10/05/23 Solomon Narayanan PA-C [address] [place] [address] Physician AssistantNeurosurgery12/12/23Team MemberRelationshipSpecialtyStart Date End Date Griselda Hastings DO [address] [place] [address] PCP - General01/03/19 [place] [address] [place] [address] Consulting PhysicianHematology and Oncology10/05/23 Solomon Narayanan PA-C [address] [place] [address] Physician AssistantNeurosurgery12/12/23 Team Status: Inactive Member Role Status Dates Griselda Hastings DO Primary Care Provider Active Sta rt: October 27, 2024 End: October 27, 2024Linda Rafa Cason ProviderActiveStart: October 27, 2024 End: October 27, 2024Team MemberRelationshipSpecialtyStart DateEnd Date Griselda Hastings [address] [place] [phone] PCP - GeneralFamily Medicine11/20/18 Griselda Hastings [address] [place] [phone] Referringmi Medicine11/20/18 Oziel Cadena MD [address] [facility] [address] [place] [address] ReferringNeurology08/18/22Team MemberRelationshipSpecialtyStart DateEnd Date Griselda Hastings [address] [place] [phone] PCP - [facility] Medicine11/20/18 Griselda Hastings [address] [place] [phone] ReferringFami Medicine11/20/18 Oziel Cadena MD [address] [facility] [address] [place] [address], [place] [address] ReferringNeurology08/18/22Team MemberRelationshipSpecialtyStart DateEnd Date Griselda Hastings DO [...] DateEnd Date Griselda Hastings DO PCP - [facility]02/13/23 Team Status: Inactive Member Role Status Dates Griselda Hastings DO Primary Care Provide r, Attending Provider Active Start: 2024 End: November 24, 2024Team MemberRelationshipSpecialtyStart DateEnd Date Griselda Hastings DO [facility] - [facility]02/13/23 Team Status: Active Member Role Status [...] DateEnd Date Griselda Hastings DO PCP - [facility]02/13/23Team MemberRelationshipSpecialtyStart DateEnd Date Griselda Hastings DO PCP - [facility]02/13/23 Team Status: Active Member Role Status [...] 2025Team MemberRelationshipSpecialtyStart DateEnd Date Griselda Hastings DO [facility]02/13/23 Team Status: Inactive Member Role Status Dates Griselda Hastings DO Primary Care Provider Active Sta rt: February 26, 2025 End: February 26natalya Hastings DOAttending ProviderActiveStart: February 26, 2025 End: February 26, 2025Team MemberRelationshipSpecialtyStart DateEnd Date DarlingGriselda DO Neisha [facility]13/23 Team Status: Inactive Member Role Status [...] BE BASED ON THE PRIMARY CLINICAL RECORDS. [facility]. provides no warranty or guarantee of the accuracy or completeness of information in this document.
== END 2025-04-09 11:43 | disposition home or self-care (01) ==
LOC: RAD 11:46
PROVIDERS: PCP Family Medicine; Visit Provider Nurse Practitioner
DX: M48.062 Spinal stenosis, lumbar region with neurogenic claudication (principal); M47.816 Spondylosis without myelopathy or radiculopathy, lumbar region
CPT/HCPCS: 72114

== ENCOUNTER 2025-04-13 11:51 | Day surgery (SDC) | payer MEDICARE, OTHER, SELFPAY ==
--- OUTSIDE RECORDS SUMMARY | 2025-04-13 11:55 | XMS_ITS | Encounter Summary ---
Author Organization [facility] Address [address] [place] [address] Care Team Providers Care Recyclable Materials Distributor Name Role Phone Jax Hastings DO Primary Care Provider [phone] Lilliam Cason MD Unavailable [phone] Encounter Details DateTypeDepartmentCare Team (Latest Contact Info)Gdyadtrdlse94/20/2025Telephone [facility] [address] [place] [phone] Elisabet Pimentel MA Social History Tobacco UseTypesPacks/DayYears UsedDateSmoking Tobacco: Every DayCigarettes0.5 52.4Started: 1972Smokeless Tobacco: NeverAlcohol UseStandard Drinks/Week CommentsNever0 (1 standard drink = 0.6 oz pure alcohol)Humiliation, Afraid, Rape, and Kick questionnaireAnswerDate RecordedWithin the last year, have you been afraid of your partner or ex-partner?Patient unable to tmlsip3603/24/2025 Emotionally AbusedNot on file03/24/2025Physically AbusedNot on file03/24/2025 Sexually AbusedNot on file03/24/2025PHQ-2AnswerDate RecordedPatient Health Questionnaire-2 Ixyta512Sex and Gender InformationValueDate RecordedSex Assigned at LhlngLfkf76/29/2025 1:20 PM EDTLegal PcgEitq6102/13/2025 9:31 AM EDT Gender SdqrueopFqgr58/29/2025 1:20 PM EDTSexual OrientationChoose not to aanpyxaa06/29/2025 1:20 PM EDTdocumented as of this encounter Miscellaneous Notes * Telephone Encounter - Ayah Ortega MA - 04/07/2025 12:06 PM EDT Clearance faxed to Dr. Harvey * Telephone Encounter - Elisabet Pimentel MA - 04/06/2025 3:19 PM EDT Patient called in and stated his blood thinner holding directions needs to come from his Vascular doctor in [place] - Dr. Harvey ph [phone] documented in this encounter Plan of Treatment Not on file documented as of this encounter Visit Diagnoses Not on filedocumented in this encounter Care Teams Team MemberRelationshipSpecialtyStart DateEnd Date Jax Hastings DO [address] [place] [phone] PCP - GeneralFamily Medicine02/13/25 Lilliam Cason MD [address] [place] [address] Referring PhysicianCardiovascular Qavyaee08/7/25documented as of this encounter
--- OUTSIDE RECORDS SUMMARY | 2025-04-13 11:55 | XMS_ITS | Clinical Summary ---
Author Organization [facility] Address [address] [facility], [address] [place] [address] Care Team Providers Care Distribution Lineman Name Role Phone Jax Hastings DO Primary Care Provider [phone] Allergies Active AllergyReactionsCriticalityNoted XcpjPrmazwobSecyrpvgeuCyqgq51/10/2019 Other Reaction(s): hives, Unknown Medications MedicationSigDispense QuantityRefillsLast FilledStart DateEnd DateStatus albuterol sulfate HFA (PROVENTIL;VENTOLIN;PROAIR) 108 (90 Base) MCG/ACT inhaler Inhale 2 puffs into the lungs every 4 hours as fjkcwl3307/02/2023ctive amLODIPine (NORVASC) 5 MG tablet Take 1 [...] 2 tablets by mouth at bedtime if diulim2405/26/2022ctive indomethacin (INDOCIN SR) 75 MG extended release capsule indomethacin ER 75 mg capsule,extended release take 1 capsule by mouth once daily with foodActive montelukast (SINGULAIR) 10 MG tablet montelukast 10 mg tablet take 1 tablet by mouth at ejbzgcl21/20/2023Active mirtazapine (REMERON) 15 MG tablet take 1/2 [...] RecordedSex Assigned at BirthNot on file Legal NujIwfe88/27/2023 9:50 AM ESTGender IdentityNot on fileSexual Orientation Not on file Last Filed Vital Signs Vital SignReadingTime TakenCommentsBlood Dcijires598/78011/05/2023 10:44 AM EDT Pulse--Fihtzjemgos11.3 ??C (97.4 ??F)11/05/2023 10:44 AM EDTRespiratory Rate-- Oxygen Saturation--Inhaled Oxygen Concentration--Rzhglp40.6 kg (180 lb) 11/05/2023 10:44 AM SQQOauity687.7 cm (5' 8 )11/05/2023 10:44 AM EDTBody Mass Index27.37011/05/2023 10:44 AM EDT Plan of Treatment Health MaintenanceDue DateLast DoneCommentsDepression Pxrdfu7911/24/1974HIV screen 1977Hepatitis C oelmuk9111/24/1980Pneumococcal 50+ years Vaccine (1 of 2 - PCV)11/24/19812407Rnlhpu28/09/4818Wlghvmlirpt83/09/2008Colorectal Cancer Screen 11/25/2007FIT/FOBT: Average risk11/25/2007Fecal-DNA (Cologuard): Average risk 11/25/2007Sigmoidoscopy/CT xgvuzttvvbdo92/09/2008Shingles vaccine (1 of 2) 2012DTaP/Tdap/Td vaccine (2 [...] Hastings DO [address] [place] [phone] PCP - [facility] Jwthkuqn06/27/23
--- OUTSIDE RECORDS SUMMARY | 2025-04-13 11:55 | XMS_ITS | Clinical Summary ---
Author Organization [facility] Address [address] [place] [address] Care Team Providers Care Radiator Core Tester Name Role Phone Jax Hastings Primary Care Provider [phone] Jax Hastings Unavailable [phone] Oziel Cadena MD Unavailable [phone] Allergies Active AllergyReactionsCriticalityNoted AuhpHknpfuwrFqovrmsmapZfjlv54/10/2019 Medications MedicationSigDispense QuantityRefillsLast FilledStart DateEnd DateStatus citalopram [...] 2 tablets by mouth at bedtime if jipvzs8805/26/2022ctive mirtazapine (REMERON) 15 mg tablet Take by [...] cell carcinoma of head and neck 10/13/2021Lung tklryqy7310/13/2021Glioma of brain10/13/2021 Immunizations ImmunizationAdministration DatesNext Duetetanus diphtheria pertussis (Tdap) vaccine, age 7+ yr (ADACEL, BOOSTRIX)03/15/2014 Family History Medical HistoryRelationCommentsCancerFatherBladder cancer, Larynx cancerCancer Paternal GrandfathercancerRelationStatusCommentsFatherDeceasedPaternal GrandfatherDeceased Social History Tobacco UseTypesPacks/DayYears UsedDateSmoking Tobacco: FormerCigarettes1.540 Smokeless Tobacco: Never Comments:quit smoking 01/2019 Alcohol UseStandard Drinks/WeekCommentsNot Currently0 (1 standard drink = 0.6 oz pure alcohol)quit 2002PHQ-2AnswerDate RecordedPHQ-2 bnlmp733rea Deprivation IndexAnswerDate RecordedNational Score (1-100), lower number is lower liyj6989State Score (1-10), lower number is lower fkoz669 Data from: https://www.neighborhoodatlas.medicine.[facility]/. Last address used for yoolwgmzftj[address]11/03/2022Sex and Gender InformationValueDate RecordedSex Assigned at HyobfNjzb19/05/2023 2:46 PM EDTLegal OicQtuj2411/19/2018 10:55 AM EDTGender XaouuwxgWlsg15/05/2023 2:46 PM EDTSexual OrientationStraight 09/20/2022 2:46 PM EDTOccupationIndustryJob Start DateJob End DateGliddenNot on fileNot on fileNot on fileTree ServiceNot on fileNot on fileNot on file Last Filed Vital Signs Vital SignReadingTime TakenCommentsBlood Qiesrsyl800/8905 9:23 AM EDT Adcxd6194/23/2025 9:23 AM YRRLnckdefbssd03.4 ??C (97.5 ??F)11/07/2024 9:23 AM EDTRespiratory Izni894811/07/2024 9:23 AM EDTOxygen Bikgwhjqng37%11/07/2024 9:23 AM EDTInhaled Oxygen Concentration--Ezomly20.3 kg (174 lb 13.2 oz)11/07/2024 9:23 AM PTJVlmzwp833.6 cm (5' 7.17 )11/07/2024 9:23 AM EDTBody Mass Index27.25 11/07/2024 9:23 AM EDT Plan of Treatment DateTypeDepartmentCare Team (Latest Contact Info)Qjnvqkmyunq18/15/2026 10:15 AM EDTAppointment Radiology Pet CT [address] [facility] [place] [address] Ct CN with contrast and lab11/06/2025 9:00 AM EDTVisit (SP) Office Hematology/Oncology [address] [facility] [place] [address] Memo Acevedo MD [address] [facility] [place] [address] 1 [address] follow up for [address] and lab resultsHealth MaintenanceDue DateLast Done CommentsAnxiety Wliftlgiz69/09/1981Depression Dxvdqmhob60/09/1981HIV Screening 1980Hepatitis C Exulvtgsd48/09/1981Lipid Icmgbsiwq28/09/1998CT Anubgbotmhyd16/09/2008Cologuard (FIT-DNA)11/25/20079931Jrlcwwizvxp12/09/2008 Colorectal Cancer Xyphbsyao84/09/2008Fecal Occult Blood11/25/2007Prostate Cancer Screening Umxkylsnmx68/09/0039Xutxiqvsfugzr88/09/2008Pneumococcal Vaccine: 50+ (1 of 1 - PCV)2012Shingrix Vaccine (1 of 2)2012Medicare Annual Wellness Visit4DTaP,Tdap,Td Vaccine (2 - Td or Tdap)03/15/2024 03/15/2014Covid-19 Vaccine (3 - 2024- season)/11/2020, 12/30/2020 Influenza Vaccine (#1)2025Diabetes Dgeqhninf53/, 02/11/2024, 10/26/2023, Additional history existsRSV Vaccine (1 - 1-dose 75+ series)2037 Procedures Procedure NamePriorityDate/TimeAssociated DiagnosisCommentsCOMPREHENSIVE METABOLIC IMZRZZvfymtk04/10/2024 9:02 AM EDT 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) from Last 3 Months or Most Recently Relevant to Health Maintenance Results * (ABNORMAL) COMP METABOLIC PANEL (10/26/2023 9:02 AM EDT)ComponentValueRef RangeTest MethodAnalysis TimePerformed AtPathologist SignatureProtein, Total 6.46.3 - 8.0 g/dL10/26/2023 9:39 AM [facility] Albumin4.33.9 - 4.9 g/dL10/26/2023 9:39 AM [facility] LABCalcium, Total9.98.5 - 10.2 mg/dL10/26/2023 9:39 AM [facility] LABBilirubin, Total0.50.2 - 1.3 mg/dL10/26/2023 9:39 AM [facility] LABAlkaline Fioetlzkiav0883 - 113 U/L 10/26/2023 9:39 AM [facility] LABAST9(L)14 - 40 U/L 10/26/2023 9:39 AM [facility] XAPVZE3955 - 54 U/L 10/26/2023 9:39 AM [facility] HEXDisvwkp4285 - 99 mg/dL10/26/2023 9:39 AM [facility] LABComment: The [place] Diabetes Association (ADA) provides guidance for cutoff [...] Standards of Medical Care in Diabetes 2016, [place] Diabetes Association. Diabetes Care. 2016.39(Suppl 1). HOD441 - 24 mg/dL10/26/2023 9:39 AM [facility] Creatinine1.010.73 - 1.22 mg/dL10/26/2023 9:39 AM [facility] TFSIsbxpj966355 - 144 mmol/L10/26/2023 9:39 AM [facility] LABPotassium4.03.7 - 5.1 mmol/L10/26/2023 9:39 [facility] DXICywaglku771(H)97 - 105 mmol/L10/26/2023 9:39 AM EDT [facility] CENZA20897 - 30 mmol/L10/26/2023 9:39 AM EDT [facility] LABAnion Gap8(L)9 - 18 mmol/L10/26/2023 9:39 AM [facility] LABEstimated Glomerular Filtration Rate 85>=60 mL/min/1.73m [...] VolumeCollection TimeReceived TimeBloodBLOOD SPECIMEN / UnknownVenipuncture / Ffgtzzf6010/26/2023 9:02 AM EDT10/26/2023 9:11 AM EDT Narrative Authorizing ProviderResult TypeResult StatusVivenori Acevedo MDLABORATORYFinal ResultPerforming OrganizationAddressCity/State/ZIP CodePhone Number [facility] [address] [place] [address] from Last 3 Months or Most Recently Relevant to Health Maintenance Insurance Care Teams Team MemberRelationshipSpecialtyStart DateEnd Date Jax Hastings [address] [place] [phone] PCP - GeneralFamily Medicine11/20/18 Jax Hastings [address] [place] [phone] ReferringFamily Medicine11/20/18 Oziel Cadena MD [address] [facility] [address] [address] ReferringNeurology08/18/22
--- OUTSIDE RECORDS SUMMARY | 2025-04-13 11:55 | XMS_ITS | Clinical Summary ---
Author Organization [facility] Address [address] [place] [address] Care Team Providers Care Cashier Credit Name Role Phone Andreagideon Jax Neisha JOSÉ Primary Care Provider [phone] Allergies Active AllergyReactionsCriticalityNoted WcebAdorpnfuFwrxlrfvjzRqite20/10/2019 Other Reaction(s): hives, Unknown Medications MedicationSigDispense QuantityRefillsLast [...] tablet Take 40 mg by mouth at kbqlyce7507/06/2023ctive lisinopril 5 MG tablet Take 5 mg by mouth Daily09/05/2023ctive Brexpiprazole 1 MG tablet 08/02/2023ctive HYDROcodone-acetaminophen (Oneco) 5-325 MG tablet 10/10/2023ctive terbinafine (LamISIL AT) 1 % cream Indications:Tinea manuumApply to the affected area on the hand, bid, 30 day supply 42 g ctive albuterol HFA 90 mcg/act inhaler Inhale 2 puffs every 4 (four) hours if mfxwbj7004/10/2024ctive tiZANidine (Zanaflex) 4 MG capsule Indications:Cervical stenosis of spinal canaltizanidine 4 mg capsule take 1 capsule by mouth twice a day if needed for MUSCLE SPASTICITY 60 capsule 5Active dexAMETHasone (Decadron) 2 MG tablet Indications:Cervical stenosis of spinal omnnm1xa 3 pills po X3 days,2 pills po daily X3 days , then 1 pill po daily X3 days then stop 9 days 18 pills 18 tablet 5ActiveHospital, Clinic, or Other Facility Administered Medication Ordered DoseRouteFrequencyStart DateEnd DateStatus dexAMETHasone sod phos (Decadron) injection 4 mg Indications:Other nerve root and plexus disorders,Acute pain of left shoulder, Acute pain of right shoulder4 ntQIJezq11Ended bupivacaine (Marcaine) 0.5 % injection 5 mg Indications:Other nerve root and plexus disorders,Acute pain of left shoulder, Acute pain of right shoulder5 cwDWUgqo99Ended bupivacaine (Marcaine) 0.5 % injection 5 mg Indications:Other nerve root and plexus disorders,Acute pain of left shoulder, Acute pain of right shoulder5 cfRUOggv19Ended Active Problems ProblemNoted DateDiagnosed DateNerve root and plexus disorder, unspecified 08/05/2024Other nerve root and plexus gygbljimv86/05/2024AD (coronary artery disease)02/26/2024Senile /18/2024Generalized anxiety disorder 12/12/2023cute effusion of left ear10/16/2023cute left-sided thoracic back pain10/16/2023cute /30/2024nxiety and uwcgzyfqmk46/30/2024V bloc first eprubi9910/16/2023rain mass10/16/2023urning zsewzlqsm62/30/2024ardiac oazocnffgr87/30/2024roductive cough10/16/2023AD (peripheral artery disease) 10/16/20232315Aqqjdddexbagzc44/30/2024Heart block10/16/2023Essential hypertension 10/16/2023yshidrotic eagwrz5710/16/2023History of oral sazaab0810/16/2023izziness 10/16/2023aresthesia of left lower lejadhzkr81/30/2024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/16/20233569Ckahhcct87/13/2024entral pontine verpdupsfysi52/13/2024igarette nicotine dependence with nicotine-induced jphipogi24/27/2024bnormal brain MRI 08/14/20232527Hpgysmcbzza63/05/2024cute pain of left rpxehkzg20/05/2024ervical zwvhixue78/16/2024adicular pain in left arm04/04/2023ervical radiculopathy 03/01/2023reglaucoma, unspecified, right eye12/29/2022Visual disturbance 12/29/20221602Kbrpcmkw28/14/2023Ulnar iqjoyyisbu61/14/2023ain in left arm12/29/2022 Skin sensation bevefjhbzcu10/14/2023ervical paraspinal muscle spasm12/29/2022 Cervical stenosis of spinal canal12/29/2022egeneration of cervical intervertebral disc12/10/2022ge-related nuclear cataract of right eye12/10/2022 Impairment of wsnpurs6512/10/20220314Bqszgawf21/25/2023Lumbar mrkejqflzwshv63/25/2023 Magnetic resonance imaging of brain njrltyod07/25/2023Malignant (primary) neoplasm, jfwssjyfimc66/25/8532Nwbcqona65/25/3253Autnsnd02/25/2023Schwannoma 12/10/20226382Hygbezblquml22/25/2023Secondary and unspecified malignant neoplasm of lymph node, xtzvgdiynzj98/25/2023Vertigo of central sgdtrl3412/10/2022Occipital kmmcmpxzi48/25/2023rachial pudrflfwuv45/08/2023Occipital neuralgia of right side11/23/2022Neck pain11/23/2022Lung qtuivfd8610/13/2021rimary squamous cell carcinoma of head and neck10/13/2021 Resolved Problems ProblemNoted DateDiagnosed DateResolved DateGlioma of brain/06/2023 Encounters DateTypeDepartmentCare WtjySriqffsunec55/07/2025Telephone [facility] [place] [facility] [address] [facility] [address] [place] [phone] Ary Lugo, RT. R 03/24/2025Telephone [facility] [place] [facility] [address] [facility] [address] [place] [phone] Ary Lugo, RT. R 03/18/2025 11:30 AM EDTClinical Support [facility] [facility] [address] [facility] [address] [place] [phone] Oziel Cadena MD Other nerve root and plexus disorders (Primary Dx); Acute pain of left shoulder; Acute pain of right aoxmoahp44/01/2025amboo flowsheet [facility] [address] [place] [phone] Oziel Cadena MD 03/18/20259501Enxvmp57/30/5808Ldikph70/20/2025 2:30 PM EDTClinical Support [facility] [place] [facility] [address] [facility] [address] [place] [phone] Oziel Cadena MD Acute pain of right shoulder (Primary Dx); Nerve root and plexus disorder, unspecified; Acute pain of left uclxntuv49/20/2025amb flowsheet [facility] [address] [place] [address] Oziel Cadena MD 02/04/20254694Gyygnx93/13/1464Rdrers56/12/2025Telephone [facility] [address] [place] [address] Mayte Morrison MA from Last 3 Months Immunizations ImmunizationAdministration DatesNext XyzRzik2103/15/2014 Family History Medical HistoryRelationNameCommentsCancerFatherStrokeFatherHypertensionMother RelationNameStatusCommentsFatherDeceasedMotherAlive Social History Tobacco UseTypesPacks/DayYears UsedDateSmoking Tobacco: Every DayCigarettes Smokeless Tobacco: Never Tobacco Cessation:Ready to Q uit: Not Asked; Counseling Given: Not Answered Comments:6-10 cigarettes/day Alcohol UseStandard Drinks/WeekCommentsNot Currently0 (1 standard drink = 0.6 oz pure alcohol)Sex and Gender InformationValueDate RecordedSex Assigned at Male11/22/2022 2:37 PM EDTLegal GybJkyv8908/30/2022 7:14 PM EDTGender IdentityMale 11/22/2022 2:37 PM EDTSexual KusplioftkoShwjvqlr17/07/2023 2:37 PM EDT Last Filed Vital Signs Vital SignReadingTime TakenCommentsBlood Iqgzkluq172/9302/04/2025 2:41 PM EDT Cnqzx74835/20/2025 2:41 PM VKDYrptaxzlyja97.5 ??C (97.7 ??F)10/04/2023 11:33 AM EDTRespiratory Unil997209/10/2023 10:29 AM EDTOxygen Mngwcylwbp38%10/04/2023 11:33 AM EDTInhaled Oxygen Concentration--Mfyvfi05.1 kg (159 lb)02/04/2025 2:41 PM EDT Snliwp117.7 cm (5' 8 )05/21/2024 2:04 PM ESTBody Mass Index24.18107/22/2023 2:04 PM EST Plan of Treatment DateTypeDepartmentCare Team (Latest Contact Info)Yzibobpgvtf46/13/2025 2:00 PM ESTClinical Support [facility] [address] [place] [address] Oziel Cadena MD [address] [place] [address] [id number] 01/08/2026 8:30 AM EDTOffice Visit [facility] [address] [place] [phone] Anahi Franco PA [address] [place] [address] Health MaintenanceDue DateLast DoneCommentsCT Cwurjbubceay76/09/1963Colonoscopy 1962Colorectal Cancer Zozfjpvgx98/09/1963FIT-DNA1962FIT1962 FOBT1962 0838Prmcfiybdarmc21/09/1963Influenza Vaccine (#1)2025 Insurance Care Teams Team MemberRelationshipSpecialtyStart DateEnd Date Jax Hastings DO PCP - GeneralFamily Medicine02/13/23
--- OUTSIDE RECORDS SUMMARY | 2025-04-13 11:55 | XMS_ITS | Clinical Summary ---
Author Organization [facility] Address [address] [place] [address] Phone Care Team Providers Care Assembler Convertible Top Name Role Phone Jax Hastings eNisha DO Primary Care Provider [phone] Helder Saleem MD Unavailable René Narayanan PA-C Unavailable [phone] Allergies Active AllergyReactionsCriticalityNoted DqxqHfkgwdrpEuplsyYjhhw68/19/2024 Medications MedicationSigDispense QuantityRefillsLast FilledStart DateEnd DateStatus amLODIPine [...] ProblemNoted DateDiagnosed DateCAD (coronary artery disease)02/26/2024eripheral vascular jezluib0102/26/2024ervical mxnwcoajnzium93/18/2024Senile osteoporosis 01/03/2024 Family History Medical HistoryRelationNameCommentsThroat cancerFatherbladder [...] homeless or living in a correction (including now)?No04/09/2024Sex and Gender InformationValueDate RecordedSex Assigned at BrfqlUtna57/29/2024 6:37 PM EDTLegal TmnJzio72/26/2022 3:14 AM ESTGender SjbalvzwTqgw87/29/2024 6:37 PM EDTSexual OrientationStraight 09/14/2023 6:37 PM EDT Last Filed Vital Signs Vital SignReadingTime TakenCommentsBlood Aqtkryba610/60010/13/2024 9:06 AM EDT Yoefp456110/13/2024 9:06 AM WBSIcriwcamvfj86.7 ??C (98.1 ??F)04/10/2024 12:11 PM EDTRespiratory Ixvv4811 12:11 PM EDTOxygen Pdflhohmkf00%04/10/2024 9:20 AM EDTInhaled Oxygen Concentration--Ghbmxf63.2 kg (168 lb)10/13/2024 9:06 AM EDT Iuohze398.7 cm (5' 8 )10/13/2024 9:06 AM EDTBody Mass Index25.54010/13/2024 9:06 AM EDT Plan of Treatment DateTypeDepartmentCare Team (Latest Contact Info)Qwtxkgqnwaw74/10/2026 9:00 AM EDTOffice Visit [facility] [address] [facility] [address] [place] [address] Doretha Harris MD [address] [place] [address] Health MaintenanceDue DateLast DoneCommentsCT Ffpgygdasnff67/09/1963Colonoscopy 1962Colorectal Cancer Pkteymszr78/09/1963FIT-DNA (Cologuard)1962FIT 1962HIV Ozttmukny68/09/1963Lipid Panel1962Medicare Annual Wellness Visit (AWV)1962 6891Dvcjwzdahkcdd24/09/1963MMR Vaccines (1 of 1 - Standard series)11/25/1963Hepatitis C Cqowsqtjv28/09/1981Pneumococcal Vaccine (1 of 2 - PCV)1981Lung Cancer Tircvchkz71/09/2013PSA Prostate Cancer Screening 2012Zoster Vaccines (1 of 2)2012RSV High Risk: (Elderly (60+) or Population) (1 - Risk 60-74 years 1-dose series)3DTaP/Tdap/Td Vaccines (2 - Td or Tdap)Influenza Vaccine (#1)2025 COVID-19 Vaccine (1 - season)2025Diabetes Ampoighgb30/24/2025 04/10/2024, 02/11/2024, 02/01/2019, Additional history existsBone Density Scan Juqfmlkzyyvv17/28/2024HIB VaccinesAged OutNo longer eligible based on patient's [...] Lordotic 6 X 11 X 14 - [id number] - [id number] Implanted:Qty: 1 on 04/09/20[facility] [employer]03/14/[id number] / [id number] / Allograft, Triad Lordotic 6 X 11 X 14 - [id number] - [id number] Implanted:Qty: 1 on 04/09/2024 [facility]: [employer]04/29/[id number] / [id number] / Plate, Acp, 1.6v, 2 Level, 34mm - [id number] Implanted:Qty: 1 on 04/09/2024 [facility]: [employer] [id number] / / Screw, Acp, Self Drill, 3.5 X 17mm, Variable - [id number] Implanted:Qty: 2 on 04/09/2024 by [facility]: [employer] [id number] / / 3.5 X 19mm Screw Implanted:Qty: 4 on 04/09/2024 [facility] [employer] [id number] / / Description:per bill only jdr 04/10 Procedures Procedure NamePriorityDate/TimeAssociated DiagnosisCommentsBASIC METABOLIC PANEL Umbkozs9504/10/2024 9:19 AM EDT DEXA BONE OSSOUVELgijcie28/28/2024 10:50 AM EDT Cervical radiculopathy from Last 3 Months or Most Recently Relevant to Health Maintenance Results * (ABNORMAL) Basic metabolic panel (04/10/2024 9:19 AM EDT)ComponentValueRef RangeTest MethodAnalysis TimePerformed AtPathologist RffqvvlztSwolazl451(H)74 - 99 mg/dL LAB CHEMISTRY METHOD 04/10/2024 10:[facility] YUPLzmsib724389 - 145 mmol/L LAB CHEMISTRY METHOD 04/10/2024 10:32 [facility] LABPotassium4.53.5 - 5.3 mmol/L LAB CHEMISTRY METHOD 04/10/2024 10:32 AM [facility] BAVDlbzscnq15809 - 107 mmol/L LAB CHEMISTRY METHOD 04/10/2024 10:32 AM [facility] CQSIlfxduqoiek4136 - 32 mmol/L LAB CHEMISTRY METHOD 04/10/2024 10:32 AM [facility] LABAnion Mbe4189 - 20 mmol/L LAB CHEMISTRY METHOD 04/10/2024 10:32 AM [facility] LABUrea Osawytyx870 - 23 mg/dL LAB CHEMISTRY METHOD 04/10/2024 10:32 AM [facility] LABCreatinine0.860.50 - 1.30 mg/dL LAB CHEMISTRY METHOD 04/10/2024 10:32 AM [facility] LABeGFR>90>60 mL/min/1.73m*2 LAB CHEMISTRY METHOD 04/10/2024 10:32 AM [facility] LABComment: Calculations of estimated GFR are performed using the 2020 CKD-EPI Study Refit equation without therace variable for the IDMS-Traceable creatinine methods. https://jasn.asnjournals.org/content//ASN.8720185766 Calcium9.08.6 - 10.6 mg/dL LAB CHEMISTRY METHOD 04/10/2024 10:32 AM [facility] LABSpecimen (Source)Anatomical Location / LateralityCollection Method / VolumeCollection TimeReceived TimeBloodVenous blood specimen / UnknownVenipuncture / Iuucyyp6204/10/2024 9:19 AM EDT1 10:03 AM EDT Narrative Authorizing ProviderResult TypeResult StatusXiaodale Harris MDLAB BLOOD ORDERABLES Final ResultPerforming OrganizationAddressCity/State/ZIP CodePhone Number [address] [address] * XR DEXA bone density (02/13/2024 10:50 AM EDT)Specimen (Source)Anatomical Location / LateralityCollection Method / VolumeCollection TimeReceived Time 12/29/2024 8:11 AM EDT12/29/2024 8:11 AM EDT [facility]ressions [facility] 12/29/2024 8:09 AM EDT DEXA: Moderately low bone mineral density ?? FRAX and Z-Score calculations include ethnicity in determining the score for these values, as determined by organizations such as the NIH, WHO and NOF. ?? All images and detailed analysis are available on the Radiology PACS. ?? MACRO: None ?? Signed by: Ruddy Lopez 12/29/2024 8:09 AM Dictation workstation: ?? [id number] Narrative [facility] - 12/29/2024 8:09 AM EDT Interpreted By: Ruddy Lopez, STUDY: DEXA BONE DENSITY02/13/2024 10:50 am ?? INDICATION: Signs/Symptoms:r/o osteoporosis, NEED AXIAL SKELETON IMAGES.. The patient is a 63 y/o ??year old M. ?? ,M54.12 Radiculopathy, cervical region ?? COMPARISON: None. ?? ACCESSION NUMBER(S): [id number] ?? ORDERING CLINICIAN: DORETHA HARRIS ?? TECHNIQUE: [...] Radiculopathy, cervical region COMPARISON: None. ACCESSION NUMBER(S): [id number] ORDERING CLINICIAN: DORETHA HARRIS TECHNIQUE: DEXA BONE [...] Ruddy Lopez 12/29/2024 8:09 AM Dictation workstation: [id number] Authorizing ProviderResult TypeResult StatusXiaodale EDMONDSON DXA PROCEDURES Final ResultPerforming OrganizationAddressCity/State/ZIP CodePhone Number [facility] from Last 3 Months or Most Recently Relevant to Health Maintenance Additional Health Concerns Active ProblemsNoted DateDiagnosed DatePatient has spine zthlunq6701/09/2024 Insurance * Guarantor: Se Kong TypeRelation to PatientDate of BirthPhoneB[facility] AddressPersonal/AaagzfNxdq11/09/1961 [address] [place] [address] Advance Directives For more information, please contact: [phone] (Available ) TypeDate RecordedPatient RepresentativeExplanationLiving Will10/05/2023 9:39 AM * Full Code (Latest Code Status on File) Date ActivatedDate FsmxptuxesjOmexyogu46/23/2024 6:57 PMQuestionAnswerComments Plan of Care:* Code Status Discussion Completed Decision Maker:* Patient * Full Code Date ActivatedDate ZfwqgenjcmnVykwxgjy25/23/2024 11:50 AM04/09/2024 6:57 PM QuestionAnswerCommentsPlan of Care:* Code Status Discussion Completed Decision Maker:* Patient Care Teams Team MemberRelationshipSpecialtyStart DateEnd Date Jax Hastings DO [address] [place] [address] [facility]01/03/19 [place] [address] [place] [address] Consulting PhysicianHematology and Oncology10/05/23 René Narayanan PA-C [address] [place] [address] Physician AssistantNeurosurgery12/12/23
--- OUTSIDE RECORDS SUMMARY | 2025-04-13 11:55 | XMS_ITS | Clinical Summary ---
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 Operator Name Role Phone Jax Hastings DO Primary Care Provider [phone] Lilliam Cason MD Unavailable [phone] Allergies Active AllergyReactionsCriticalityNoted SqfxQyejygwrGyqdlthnfxHgrmh31/10/2019 Other Reaction(s): hives, Unknown Medications MedicationSigDispense QuantityRefillsLast [...] mg by mouth in the morning.06/08/2023ctive HYDROcodone-acetaminophen (Alexander) 7.5-325 mg tablet 03/04/2025tive hydrOXYzine HCL (Atarax) [...] twice a day if needed for MUSCLE KQMQFLGCEO15/14/2025Active Active Problems ProblemNoted DateDiagnosed DateNerve root and plexus oxxxpoba10/05/2024AD (coronary artery disease)02/26/2024Senile svpzzunonhcj76/18/2024Generalized anxiety /26/2024cute effusion of left ear10/16/2023cute left-sided thoracic back pain10/16/2023cute ddlsasgsr64/30/2024nxiety and depression 10/16/2023V bloc first aeismf6810/16/2023rain mass10/16/2023urning sensation 10/16/2023ardiac tcoiivxkan58/30/9719Ftdekjqjw15/30/2024yshidrotic eczema 10/16/2023Essential dpxsmzbuioen59/30/2024Heart block10/16/2023History of oral lrogzm1010/16/20238159Owymwpitlypsse51/30/2024Osteoarthritis of hand10/16/2023AD (peripheral artery disease)10/16/2023aresthesia of left lower extremity 10/16/2023roductive cough10/16/2023entral pontine vdsiwxdjycrx46/13/2024 Ttnljhhm17/13/2024igarette nicotine dependence with nicotine-induced disorder 4Acute pain of left femhpyke87/05/2024ervical iwppoaql52/16/2024 Radicular pain in left arm04/04/2023ervical njzwiocpwzbpg94/14/2023ervical paraspinal muscle spasm12/29/2022ervical stenosis of spinal canal12/29/2022ain in left arm12/29/2022reglaucoma, unspecified, right eye12/29/2022Skin sensation xaysvcdnkcx35/14/2023Visual cqjtviwhodp16/14/1110Bhkdvecc33/14/2023ge-related nuclear cataract of right eye12/10/2022egeneration of cervical intervertebral disc12/10/2022Impairment of drygozo7812/10/20224054Apqfuygs45/25/2023Lumbar swblrebrxfhis17/25/2023Malignant (primary) neoplasm, apzfrqftiwq36/25/2023 Ukqpwvj3612/10/2022Other abnormal findings on diagnostic imaging of central nervous flmlti0712/10/20221565Rsjppmuymvbp54/25/8596Oeqozqidxv94/25/2023Secondary and unspecified malignant neoplasm of lymph node, gvuxnxkfmyd07/25/2023Vertigo of central nqebnn2312/10/2022Neck pain11/23/2022ervico-occipital ogybhbhwa76/08/2023 Brachial twqwatdayq65/08/2023lioma of brain10/13/2021Lung wvvmstb5510/13/2021 Primary squamous cell carcinoma of head and neck10/13/2021 Encounters DateTypeDepartmentCare AthbRqwlvagrciq76/20/2025Telephone [facility] [address] [place] [phone] Elisabet Pimentel MA 03/24/2025 10:30 AM EDTConsult [facility] [address] [place] [address] Isaias Ramirez MD Chronic pain syndrome (Primary Dx)02/13/2025 - 02/13/2025 11:59 PM EDTHospital Encounter [facility] [address] [place] [address] Discharge Disposition: Home or Self Care (01)02/13/2025Telephone [facility] [address] [place] [address] Ayah Ortega MA from Last 3 Months Family History Medical HistoryRelationNameCommentsCancerFatherRobert HallHeart diseaseMother Paty HallStrokePaternal GrandfatherRobert Houston JrRelationNameStatusComments FatherRobert HallAliveMotherBetty HallAlivePaternal GrandfatherRobert Kong Jr Alive Social History Tobacco UseTypesPacks/DayYears UsedDateSmoking Tobacco: Every DayCigarettes0.5 52.4Started: 1972Smokeless Tobacco: Never Tobacco Cessation:Ready to Q uit: Not Asked; Counseling Given: Not Answered Alcohol UseStandard Drinks/WeekCommentsNever0 (1 standard drink = 0.6 oz pure alcohol)Humiliation, Afraid, Rape, and Kick questionnaireAnswerDate Recorded Within the last year, have you been afraid of your partner or ex-partner?Patient unable to lojpvo3103/24/2025Emotionally AbusedNot on file03/24/2025Physically AbusedNot on file03/24/2025Sexually AbusedNot on file03/24/2025PHQ-2AnswerDate RecordedPatient Health Questionnaire-2 Kdviz836Sex and Gender InformationValueDate RecordedSex Assigned at DaqhsOuox94/29/2025 1:20 PM EDT Legal BrdWpqe9802/13/2025 9:31 AM EDTGender CsiurowgQhvk34/29/2025 1:20 PM EDT Sexual OrientationChoose not to htqrukws44/29/2025 1:20 PM EDT Last Filed Vital Signs Vital SignReadingTime TakenCommentsBlood Btyeojaw490/7003/24/2025 10:42 AM EDT Mwlgu880803/24/2025 10:42 AM NHUOzpxmwdwllm51.9 ??C (98.4 ??F)03/24/2025 10:42 AM EDTRespiratory Rate--Oxygen Saturation--Inhaled Oxygen Concentration--Nesasx93.6 kg (160 lb)03/24/2025 10:42 AM CWNLjyfpv744.7 cm (5' 8 )03/24/2025 10:42 AM EDT Body Mass Index24.331 10:42 AM EDT Plan of Treatment Health MaintenanceDue DateLast DoneCommentsCT Bfysmuyqivnd41/09/1963Colonoscopy 1962Colorectal Cancer [place]91/09/1963FIT-DNA1962FIT1962 FOBT1962Medicare Annual Wellness (AWV)1962 6000Wifsxssyqknha31/09/1963 Pneumococcal Vaccine: Pediatrics (0 to 5 Years) and At-Risk Patients (6 to 64 Years) (1 of 2 - PCV)1981Zoster Vaccines (1 of 2)2012dult Tetanus COVID-19 Vaccine (3 - 2024- season)508/11/2020, 12/30/2020Influenza Vaccine (#1)2025Depression Vxsdqigge81/07/2026 03/24/2025HIB VaccinesAged OutNo longer eligible based on [...] Procedures Procedure NamePriorityDate/TimeAssociated DiagnosisCommentsMR TRANSFER OF OUTSIDE TTQBRIwukjlx92/29/2025 12:00 AM EDT from Last 3 Months Results * MR transfer of outside films (02/13/2025 12:00 AM EDT)Specimen (Source) Anatomical Location / LateralityCollection Method / VolumeCollection Time Received Time Narrative IMAGING - 02/13/2025 10:59 AM EDT This order has been auto-finalized and does not contain a result. Authorizing ProviderResult TypeResult StatusAlastair James MDG MRI PROCEDURES Final ResultPerforming OrganizationAddressCity/State/ZIP CodePhone Number IMAGING from Last 3 Months Insurance Care Teams Team MemberRelationshipSpecialtyStart DateEnd Date Jax Hastings DO [address] [place] [phone] PCP - GeneralFamily Medicine02/13/25 Lilliam Cason MD [address] [place] [address] Referring PhysicianCardiovascular Gdvjpub87/7/25
[2025-04-13 12:12] VITALS: BP 107/68; PULSE 78; TEMP 36.3; O2SAT 99
[2025-04-13 12:53] VITALS: BP 108/63; PULSE 71; O2SAT 97
[2025-04-13 12:57] VITALS: BP 93/57; PULSE 68; O2SAT 92
[2025-04-13] MEDS: BUPIVACAINE HCL 0.25% PF 25 MG/10 ML VIAL 2 ML INJ (13:00)
[2025-04-13] MEDS: METHYLPREDNISOLONE ACETATE 40 MG/ML VIAL INJ (13:01)
[2025-04-13] MEDS: LIDOCAINE HCL 2% 400 MG/20 ML MDV INJ (13:01)
--- NOTE | 2025-04-13 13:02 | W.PM.PROCNOT ---
Date of procedure: 04/13/25 Pre-op diagnosis: Pain due to left shoulder osteoarthritis Post-op diagnosis: same as pre-op Procedure: Procedure: Left suprascapular and axillary nerve radiofrequency ablation Medications: Bupivacaine 0.25% 2cc, lidocaine 2% 5cc, depomedrol 40mg The patient was seen and examined in the preoperative holding area. Informed consent was obtained and placed on the chart.? The patient was brought to the medical procedure unit and placed in the prone position. A timeout was completed verifying correct patient, procedure site, positioning, plan, and special equipment.? Using aseptic technique, under direct fluoroscopic visualization, a 20-gauge 15 cm with a 10 mm curved active tip radiofrequency cannula was advanced to the superior portion of the left posterior osseous rim of the glenoid fossa, lateral and superior to the spinal glenoid notch. Motor stimulation was carried out at 2 Hz up to 5 volts with the absence of extremity activity. Then radiofrequency lesioning was carried out for 90 seconds at 80 degrees.? The needle was then redirected 3 mm inferiorly and another lesioning was carried out for 90 seconds at 80 degree.? Using aseptic technique, under direct fluoroscopic visualization, another 20-gauge 15 cm with a 10 mm curved active tip radiofrequency cannula was advanced toward the most inferior and lateral border of the greater tubercle. Motor stimulation was carried out at 2 Hz up to 5 volts with the absence of extremity activity. Then radiofrequency lesioning was carried out for 90 seconds at 80 degrees.? The needle was then redirected 3 mm inferiorly and another lesioning was carried out for 90 seconds at 80 degree.? The patient was taken to the postprocedural recovery area and monitored for an appropriate length of time before being found suitable for discharge in the accompaniment of a responsible adult. Anesthesia: Local Surgeon: Sarina Ramsey Pathology: none sent Condition: stable Disposition: no change
== END 2025-04-13 13:05 ==
PROVIDERS: PCP Family Medicine; Visit Provider Anesthesiology
DX: M19.012 Primary osteoarthritis, left shoulder (principal)
CPT/HCPCS: 64640; J0665; J1010

== ENCOUNTER 2025-05-20 11:12 | Outpatient (OUT) | payer MEDICARE, OTHER, SELFPAY ==
--- OUTSIDE RECORDS SUMMARY | 2025-05-20 11:15 | XMS_ITS | Clinical Summary ---
Author Organization [facility] Address [address] [address] Care Team Providers Care Branch Store Manager Name Role Phone Jxa Hastings DO Primary Care Provider Lilliam Cason MD Unavailable [phone] Allergies Active AllergyReactionsCriticalityNoted OiygEewudgwaRsjargzrbiWwcpa05/10/2019 Other Reaction(s): hives, Unknown Medications MedicationSigDispense QuantityRefillsLast [...] mg by mouth in the morning.06/08/2023ctive HYDROcodone-acetaminophen ([place]) 7.5-325 mg tablet 03/04/2025tive hydrOXYzine HCL (Atarax) 25 mg tablet 05/26/2022ctive montelukast (Singulair) 10 mg tablet Take 10 mg by mouth.09/04/2022ctive pantoprazole (ProtoNix) 40 mg EC tablet 03/15/2025tive pravastatin (Pravachol) 40 mg tablet Take 40 mg by mouth.07/06/2023ctive pregabalin (Lyrica) 50 mg capsule Take 50 mg by mouth twice a day.06/30/2024tive tiZANidine (Zanaflex) 4 mg capsule tizanidine 4 mg capsule take 1 capsule by mouth twice a day if needed for MUSCLE SWUCONCKKJ01/14/2025Active Active Problems ProblemNoted DateDiagnosed DateChronic pain mpbmaoju72/13/2025Nerve root and plexus rrucbjdb87/05/2024AD (coronary artery disease)02/26/2024Senile ivhnwqrqoylm70/18/2024Generalized anxiety yafasukg21/26/2024cute effusion of left ear10/16/2023cute left-sided thoracic back pain10/16/2023cute sinusitis 10/16/2023nxiety and /30/2024V bloc first ejmkcq7710/16/2023rain mass10/16/2023urning ldaozcdfu93/30/2024ardiac jxzdieaeeh58/30/2024izziness 10/16/2023yshidrotic ptblgq2610/16/2023Essential xckkcwwzlegq09/30/2024Heart block10/16/2023History of oral cezeke1710/16/20233903Hribxxckewldli33/30/2024 Osteoarthritis of hand10/16/2023AD (peripheral artery disease)10/16/2023 Paresthesia of left lower hbxzpofki53/30/2024roductive cough10/16/2023entral pontine zbocilryyoxn55/13/6779Nfaungaw75/13/2024igarette nicotine dependence with nicotine-induced jciucjee04/27/2024Acute pain of left qjtepylb48/05/2024 Cervical oukdover98/16/2024Radicular pain in left arm04/04/2023ervical fchtsvqrmoovg16/14/2023ervical paraspinal muscle spasm12/29/2022ervical stenosis of spinal canal12/29/2022ain in left arm12/29/2022reglaucoma, unspecified, right eye12/29/2022Skin sensation /14/2023Visual neuqoseptps21/14/0337Ocvrehlg82/14/2023ge-related nuclear cataract of right eye 12/10/2022egeneration of cervical intervertebral disc12/10/2022Impairment of pkvtrqq6312/10/20223677Ocszrzcl62/25/2023Lumbar gchfbvfcxawgs70/25/2023Malignant (primary) neoplasm, nyakexsfkfr83/25/3015Ogwczwt51/25/2023Other abnormal findings on diagnostic imaging of central nervous iouovi3512/10/2022seudophakia 12/10/20224178Jxyyzmzkpo42/25/2023Secondary and unspecified malignant neoplasm of lymph node, tveqewvxptr59/25/2023Vertigo of central tdztsg9812/10/2022Neck pain 11/23/2022ervico-occipital pzrrolrmb22/08/2023rachial eldlsimmja73/08/2023 Glioma of brain10/13/2021Lung ligufiy7410/13/2021rimary squamous cell carcinoma of head and neck10/13/2021 Encounters DateTypeDepartmentCare MkxuOikpnsqmftc75/13/2025Orders Only [facility] Surgery Clinic [address] [place] [address] Lidya Cordon MA Chronic pain syndrome (Primary Dx)04/06/2025Telephone [facility] Surgery Clinic [address] [place] [phone] Elisabet Pimentel MA 03/24/2025 10:30 AM EDTConsult [facility] Surgery Clinic [address] [place] [phone] Isaias Ramirez MD Chronic pain syndrome (Primary Dx)from Last 3 Months Family History Medical HistoryRelationNameCommentsCancerFatherRobert HallHeart diseaseMother Paty HallStrokePaternal GrandfatherRobert [place] JrRelationNameStatusComments FatherRobert HallAliveMotherBetty HallAlivePaternal GrandfatherRobert [place] Jr Alive Social History Tobacco UseTypesPacks/DayYears UsedDateSmoking Tobacco: Every DayCigarettes0.5 52.5Started: 1972Smokeless Tobacco: Never Tobacco Cessation:Ready to Q uit: Not Asked; Counseling Given: Not Answered Alcohol UseStandard Drinks/WeekCommentsNever0 (1 standard drink = 0.6 oz pure alcohol)Humiliation, Afraid, Rape, and Kick questionnaireAnswerDate Recorded Within the last year, have you been afraid of your partner or ex-partner?Patient unable to zmewpm7503/24/2025Emotionally AbusedNot on file03/24/2025Physically AbusedNot on file03/24/2025Sexually AbusedNot on file03/24/2025PHQ-2AnswerDate RecordedPatient Health Questionnaire-2 Vcmtn579Sex and Gender InformationValueDate RecordedSex Assigned at CqmqhJevd83/29/2025 1:20 PM EDT Legal XmnDdfv2302/13/2025 9:31 AM EDTGender OfctzbchLfvq20/29/2025 1:20 PM EDT Sexual OrientationChoose not to hwzgxizt73/29/2025 1:20 PM EDT Last Filed Vital Signs Vital SignReadingTime TakenCommentsBlood Ctktzalq032/7003/24/2025 10:42 AM EDT Qjmtn693603/24/2025 10:42 AM HXDSpiklrwgtei57.9 ??C (98.4 ??F)03/24/2025 10:42 AM EDTRespiratory Rate--Oxygen Saturation--Inhaled Oxygen Concentration--Dwaohh95.6 kg (160 lb)03/24/2025 10:42 AM LWZQzhafe786.7 cm (5' 8 )03/24/2025 10:42 AM EDT Body Mass Index24.3310 10:42 AM EDT Plan of Treatment DateTypeDepartmentCare Team (Latest Contact Info)Dhlcpuktxxm53/08/2025 8:30 AM ESTConsult [facility] Surgery Clinic [address] [place] [address] Isaias Ramirez MD [address] [place] [address] 06/03/2025 12:00 PM ESTHospital Encounter [facility] Main Operating Room [address] [place] [address] Isaias Ramirez MD [address] [place] [address] 06/03/2025 12:00 PM EST - 06/03/2025 2:30 PM ESTSurgery [facility] Main Operating Room [address] [place] [address] Isaias Ramirez MD [address] [place] [address] C4 LAMINOTOMY FOR INSERTION, SPINAL CORD STIMULATOR [59405 (CPT??) +1 more] 06/16/2025 1:00 PM ESTOffice Visit [facility] Surgery Clinic [address] [place] [address] Opal Holley, BOAT HAND [address] [place] [address] NamePriorityAssociated DiagnosesDate/TimeINSERTION, SPINAL CORD STIMULATOR Chronic pain syndrome 06/03/2025 12:00 PM ESTHealth MaintenanceDue DateLast DoneCommentsCT Dmngdzvgtrdc89/09/3635Ahryoxubxuj93/09/1963Colorectal Cancer Ojumitoou83/09/1963 FIT-DNA1962FIT1962FOBT1962Medicare Annual Wellness (AWV) 1962 7726Toimrchijxylm72/09/1963Pneumococcal Vaccine: Pediatrics (0 to 5 Years) and At-Risk Patients (6 to 64 Years) (1 of 2 - PCV)1981Zoster Vaccines (1 of 2)2012dult Rvbccwt53/28/COVID-19 Vaccine ( - 2024- season)508/11/2020, 12/30/2020Influenza Vaccine (#1)2025 Depression Pxsoztphu45HIB VaccinesAged OutNo longer eligible based on patient's [...] Team MemberRelationshipSpecialtyStart DateEnd Date Jax Hastings DO [address] [place] [phone] PCP - GeneralFamily Medicine02/13/25 Lilliam Cason MD [address] [place] [address] Referring PhysicianCardiovascular Zzwwnoq29/7/25
--- OUTSIDE RECORDS SUMMARY | 2025-05-20 11:15 | XMS_ITS | Clinical Summary ---
Author Organization [facility] Address [address] [place] [address] Care Team Providers Care Executive Staff Assistant Name Role Phone Andreagideon Griselda Neisha JOSÉ Primary Care Provider [phone] Allergies Active AllergyReactionsCriticalityNoted AyzdVujxeqcsQpavkgcehpOdffn06/10/2019 Other Reaction(s): hives, Unknown Medications MedicationSigDispense QuantityRefillsLast [...] tablet Take 40 mg by mouth at nhaqiee3707/06/2023ctive lisinopril 5 MG tablet Take 5 mg by mouth Daily09/05/2023ctive Brexpiprazole 1 MG tablet 08/02/2023ctive HYDROcodone-acetaminophen ([place]) 5-325 MG tablet 10/10/2023ctive terbinafine (LamISIL AT) 1 % cream Indications:Tinea manuumApply to the affected area on the hand, bid, 30 day supply 42 g ctive albuterol HFA 90 mcg/act inhaler Inhale 2 puffs every 4 (four) hours if ukknax2704/10/2024ctive tiZANidine (Zanaflex) 4 MG capsule Indications:Cervical stenosis of spinal canaltizanidine 4 mg capsule take 1 capsule by mouth twice a day if needed for MUSCLE SPASTICITY 60 capsule 1105Active dexAMETHasone (Decadron) 2 MG tablet Indications:Cervical stenosis of spinal jawhf4pb 3 pills po X3 days,2 pills po daily X3 days , then 1 pill po daily X3 days then stop 9 days 18 pills 18 tablet 5Active folic acid-vit B6-vit B12 2.5-25-1 MG tablet tablet Indications:Occipital neuralgia of left sideTake 1 tablet by mouth Daily 30 tablet 6ActiveHospital, Clinic, or Other Facility Administered MedicationOrdered DoseRouteFrequencyStart DateEnd DateStatus dexAMETHasone sod phos (Decadron) injection 4 mg Indications:Other nerve root and plexus disorders4 klPCNice87 Ended bupivacaine (Marcaine) 0.5 % injection 5 mg Indications:Other nerve root and plexus disorders5 puBMWpah05 Ended Active Problems ProblemNoted DateDiagnosed DateNerve root and plexus disorder, unspecified 08/05/2024Other nerve root and plexus pcqydapim39/05/2024AD (coronary artery disease)02/26/2024Senile uhhwvckfomsx52/18/2024Generalized anxiety disorder 12/12/2023cute effusion of left ear10/16/2023cute left-sided thoracic back pain10/16/2023cute kzttmpyqw82/30/2024nxiety and fyoytifblz35/30/2024V bloc first avvzww4310/16/2023rain mass10/16/2023urning cwwcjryry53/30/2024ardiac gkuerbmjil70/30/2024roductive cough10/16/2023AD (peripheral artery disease) 10/16/20239305Ovehjhtdxijtpb40/30/2024Heart block10/16/2023Essential hypertension 10/16/2023yshidrotic bmgmjp6410/16/2023History of oral npgrah6010/16/2023izziness 10/16/2023aresthesia of left lower /30/2024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/16/20232028Gxzqddpt56/13/2024entral pontine eypgexfaucxd20/13/2024igarette nicotine dependence with nicotine-induced /27/2024bnormal brain MRI 08/14/20239926Taxxwpthvrw18/05/2024cute pain of left semzrdrk94/05/2024ervical wfhhavsj34/16/2024Radicular pain in left arm04/04/2023ervical radiculopathy 03/01/2023reglaucoma, unspecified, right eye12/29/2022Visual disturbance 12/29/20221250Rgptbxxe45/14/2023Ulnar kbupubetrr67/14/2023ain in left arm12/29/2022 Skin sensation gewevivradv00/14/2023ervical paraspinal muscle spasm12/29/2022 Cervical stenosis of spinal canal12/29/2022egeneration of cervical intervertebral disc12/10/2022ge-related nuclear cataract of right eye12/10/2022 Impairment of daxmkhi7912/10/20222474Zzhcherq38/25/2023Lumbar bwbjpvoizsihs51/25/2023 Magnetic resonance imaging of brain whuxltel35/25/2023Malignant (primary) neoplasm, /25/3091Bxqsxgma39/25/4073Sqhrmwe36/25/2023Schwannoma 12/10/20223960Ndkiteqjjzeb25/25/2023Secondary and unspecified malignant neoplasm of lymph node, bmkmiqmcpfw32/25/2023Vertigo of central odnihr4212/10/2022Occipital pmoxdzwds22/25/2023rachial ecavwqhymz22/08/2023Occipital neuralgia of right side11/23/2022Neck pain11/23/2022Lung vrpwvgy5910/13/2021rimary squamous cell carcinoma of head and neck10/13/2021 Resolved Problems ProblemNoted DateDiagnosed DateResolved DateGlioma of brain/06/2023 Encounters DateTypeDepartmentCare TbmoNvmawpcgklj52/26/2025Orders Only [facility] [address] [place] [address] Amber Mi MA Occipital neuralgia of left side (Primary Dx)04/30/2025 2:00 PM ESTClinical Support [facility] [address] [place] [address] Elvi Traore MD Other nerve root and plexus disorders (Primary Dx)04/30/2025amboo flowsheet [facility] [address] [place] [address] Elvi Traore MD 04/30/20251999Ntlhjq95/10/2025Results Follow-Up [facility] [address] [place] [address] Elvi Traore MD MRI HEAD/BRAIN WO/W CONTR04/25/20255404Bmunns97/21/2025linisync Result Encounter [facility] External Department Unsolicited Elvi Traore MD 03/24/2025Telephone [facility] [address] [place] [address] Ary Lugo, RT. R 03/24/2025Telephone [facility] [address] [place] [address] Ary Lugo, RT. R 03/18/2025 11:30 AM EDTClinical Support [facility] [address] [place] [phone] Elvi Traore MD Other nerve root and plexus disorders (Primary Dx); Acute pain of left shoulder; Acute pain of right ecmwlnyv77/01/2025amboo flowsheet [facility] [address] [place] [address] Elvi Traore MD 03/18/20250715Ngxdld57/30/2025Travelfrom Last 3 Months Immunizations ImmunizationAdministration DatesNext KhcHmmd5203/15/2014 Family History Medical HistoryRelationNameCommentsCancerFatherStrokeFatherHypertensionMother RelationNameStatusCommentsFatherDeceasedMotherAlive Social History Tobacco UseTypesPacks/DayYears UsedDateSmoking Tobacco: Every DayCigarettes Smokeless Tobacco: Never Tobacco Cessation:Ready to Q uit: Not Asked; Counseling Given: Not Answered Comments:6-10 cigarettes/day Alcohol UseStandard Drinks/WeekCommentsNot Currently0 (1 standard drink = 0.6 oz pure alcohol)Sex and Gender InformationValueDate RecordedSex Assigned at Male11/22/2022 2:37 PM EDTLegal NilKjmy4908/30/2022 7:14 PM EDTGender IdentityMale 11/22/2022 2:37 PM EDTSexual SgdsdzmvzhuLyhveiug07/07/2023 2:37 PM EDT Last Filed Vital Signs Vital SignReadingTime TakenCommentsBlood Wkitiuas637/9302/04/2025 2:41 PM EDT Vnlgi83826/20/2025 2:41 PM SWGViozhiymkqb16.5 ??C (97.7 ??F)10/04/2023 11:33 AM EDTRespiratory Xnxe947609/10/2023 10:29 AM EDTOxygen Uwbwfgjija99%10/04/2023 11:33 AM EDTInhaled Oxygen Concentration--Fgfeva75.1 kg (159 lb)02/04/2025 2:41 PM EDT Foefhh607.7 cm (5' 8 )05/21/2024 2:04 PM ESTBody Mass Index24.18107/22/2023 2:04 PM EST Plan of Treatment DateTypeDepartmentCare Team (Latest Contact Info)Xxgofamlpej46/07/2026 3:00 PM ESTOffice Visit [facility] [place] [facility] [address] [place] [address] Elvi Traore MD [address] [facility] [address] [place] [address] 01/08/2026 8:30 AM EDTOffice Visit [facility] [place] [facility] [address] [place] [address] Anahi Franco PA [address] [place] [address] Health MaintenanceDue DateLast DoneCommentsCT Bsidtmbeimyf35/09/1963Colonoscopy 1962Colorectal Cancer Mbhfskjdy26/09/1963FIT-DNA1962FIT1962 FOBT1962 7251Qyimpphgfwijz55/09/1963COVID-19 Vaccine ( season) /11/2020, 12/30/2020Influenza Vaccine (#1)2025Pneumococcal Vaccine: Pediatrics (0 to 5 Years) and At-Risk Patients (6 to 64 Years)Aged Out No longer eligible based on patient's age to complete this topic Procedures Procedure NamePriorityDate/TimeAssociated DiagnosisCommentsMRI HEAD/BRAIN WO/W CONTR04/07/2025 3:50 PM EDT from Last 3 Months Results * MRI HEAD/BRAIN WO/W CONTR (04/07/2025 3:50 PM EDT)Anatomical RegionLaterality ModalityRadiographic ImagingSpecimen (Source)Anatomical Location / Laterality Collection Method / VolumeCollection TimeReceived Time04/07/2025 3:50 PM EDT Narrative 04/07/2025 3:53 PM EDT [facility] ?[address] ? [place] [id number] ? Magnetic Resonance Report ? Signed Patient: SHANTEL KONG ?MR#: [id number] : 1960 ?Acct:[id number] Age/Sex: 64 / M ?ADM Date: 04/03/25 Loc: LAB Attending Dr: ELVI TRAORE Ordering Physician: ELVI TRAORE Date of Service: 04/03/25 Procedure(s): MR head/brain wo/w con Accession Number(s): [id number] cc: ELVI TRAORE ; GRISELDA HASTINGS ? [facility] ? [facility] ? [place] [address] ? Patient Name: SHANTEL ??NORA MRN: [id number] ? date: 1960 ?Sex: M Assigned Patient Location: LAB Current Patient Location: Accession/Order Number: [id number] Exam Date: 04/03/2025 ??13:45 ?Report Date: 04/07/2025 ??15:50 At the request of: ELVI ??EUGENIE Procedure: ??MR head/brain wo/w con MRI BRAIN WITHOUT AND WITH INTRAVENOUS CONTRAST CLINICAL DATA: ??Neoplasm of brain COMPARISON: ??MRI brain 10/05/2021, CT head 07/14/2022 FINDINGS: No restricted diffusion. Mild central involutional changes. ??Mild periventricular subcortical T2 prolongation identified just of chronic small vessel ischemic disease. ??No shift midline structure basal cisterns are patent. Redemonstration of moderate relatively confluent T2 signal involving the right VANESSA naldo crossing the midline into the left naldo and into the facial colliculus. ??Relative sparing of cortical spinal tracts noted. ??No masslike enlargement of the naldo noted. ??Similar appearance of the of T2 signal noted. No pathologic enhancement identified. ??No additional focus of abnormal enhancement identified elsewhere. MR/MR head/brain wo/w con IMPRESSION: Stable confluent T2 signal involving the naldo predominantly right-sided. ??It is conceivable these T2 signal changes may represent the sequelae of prior radiation therapy, correlate with prior head and neck radiation treatment planning.. ??Sequela of demyelination or possible low-grade glial ??tumor may be considered although thought less likely given the overall stability and nonmasslike appearance. Otherwise stable chronic microvascular disease without evidence of acute stroke or acute intracranial process by MRI. Impression dictated by: Gee Hutchins M.D. ??04/07/2025 3:50 PM Dictation Location: [place] [address] Electronically authenticated by: [id number] ??Y ?? Date: 04/07/2025 ??15:50 Dictated By: ?Gee Hutchins M.D. Signed By: ?04/07/25 1553 DD/ 1550 TD/TT: ? Casing In Line Feeder: Procedure Note Radiology, Radiologist, - 04/27/2025 [place] [address] Magnetic Resonance Report Signed Patient: SHANTEL KONGMR#: [id number] : 1960Acct:[id number] Age/Sex: 64 / MADM Date: 04/03/25 Loc: LAB Attending Dr: ELVI TRAORE Ordering Physician: ELVI TRAORE Date of Service: 04/03/25 Procedure(s): MR head/brain wo/w con Accession Number(s): [id number] cc: ELVI TRAORE ; GRISELDA HASTINGS [facility] [place] [address] Patient Name: SHANTEL KONG MRN: [id number] date: 1960 Sex: M Assigned Patient Location: LAB Current Patient Location: Accession/Order Number: [id number] Exam Date: 04/03/2025 13:45 Report Date: 04/07/2025 15:50 At the request of: ELVI TRAORE Procedure: MR head/brain wo/w con MRI BRAIN WITHOUT AND WITH INTRAVENOUS CONTRAST CLINICAL DATA: Neoplasm of brain COMPARISON: MRI brain 10/05/2021, CT head 07/14/2022 FINDINGS: No restricted diffusion. Mild central involutional changes. Mild periventricular subcortical T2 prolongation identified just of chronic small vessel ischemic disease.No shift midline structure basal cisterns are patent. Redemonstration of moderate relatively confluent T2 signal involving theright VANESSA naldo crossing the midline into the left naldo and into the facial colliculus. Relative sparing of cortical spinal tracts noted. Nomasslike enlargement of the naldo noted. Similar appearance of the of T2 signalnoted. No pathologic enhancement identified. No additional focus of abnormal enhancement identified elsewhere. MR/MR head/brain wo/w con IMPRESSION: Stable confluent T2 signal involving the naldo predominantly right-sided.It is conceivable these T2 signal changes may represent the sequelae ofprior radiation therapy, correlate with prior head and neck radiationtreatment planning.. Sequela of demyelination or possible low-grade glial tumormay be considered although thought less likely given the overall stability and nonmasslike appearance. Otherwise stable chronic microvascular disease without evidence of acute stroke or acute intracranial process by MRI. Impression dictated by: Gee Hutchins M.D. 04/07/2025 3:50 PM Dictation Location: [place] [address] Electronically authenticated by: [id number] Y Date: 5:50 Dictated By: Gee Hutchins M.D. Signed By:04/07/25 1553 DD/ 155 TD/TT: Casing In Line Feeder: Authorizing ProviderResult TypeResult StatusBremadisyn Traore MDIMG XR PROCEDURES Final Result from Last 3 Months Insurance Care Teams Team MemberRelationshipSpecialtyStart DateEnd Date Griselda Hastings DO [address] [place] [address] PCP - GeneralFamily Medicine02/13/23
--- OUTSIDE RECORDS SUMMARY | 2025-05-20 11:15 | XMS_ITS | Clinical Summary ---
Author Organization [facility] Address [address] [place] [address] Phone Care Team Providers Care Clerk Carrier Name Role Phone Jax Hastings Neisha DO Primary Care Provider [phone] Helder Saleem MD Unavailable [phone] René Narayanan PA-C Unavailable [phone] Allergies Active AllergyReactionsCriticalityNoted DuojHcmnhnvmJpqtjlUlcet08/19/2024 Medications MedicationSigDispense QuantityRefillsLast FilledStart DateEnd DateStatus amLODIPine [...] ProblemNoted DateDiagnosed DateCAD (coronary artery disease)02/26/2024eripheral vascular mnnvibw9502/26/2024ervical kaitzemlwyneg47/18/2024Senile osteoporosis 01/03/2024 Family History Medical HistoryRelationNameCommentsThroat cancerFatherbladder cancerFatherHeart diseaseMotherRelationNameStatusCommentsFatherMother Social History Tobacco UseTypesPacks/DayYears UsedDateSmoking Tobacco: Every DayCigarettes0.5 51.9Started: 1974Passive Smoke Exposure: NeverSmokeless Tobacco: Never Tobacco [...] were you homeless or living in a detention (including now)?No04/09/2024Sex and Gender InformationValueDate RecordedSex Assigned at EduumNgmc47/29/2024 6:37 PM EDTLegal AkkDagq40/26/2022 3:14 AM ESTGender WbbbmtsyOkvk89/29/2024 6:37 PM EDTSexual OrientationStraight 09/14/2023 6:37 PM EDT Last Filed Vital Signs Vital SignReadingTime TakenCommentsBlood Hjtzkzff942/60010/13/2024 9:06 AM EDT Ywyvs683810/13/2024 9:06 AM MICTwepqnkjdey49.7 ??C (98.1 ??F)04/10/2024 12:11 PM EDTRespiratory Tsqs9586 12:11 PM EDTOxygen Mcvayfpqse56%04/10/2024 9:20 AM EDTInhaled Oxygen Concentration--Dmppag16.2 kg (168 lb)10/13/2024 9:06 AM EDT Aqcxoq908.7 cm (5' 8 )10/13/2024 9:06 AM EDTBody Mass Index25.54010/13/2024 9:06 AM EDT Plan of Treatment DateTypeDepartmentCare Team (Latest Contact Info)Cjhrusstina18/10/2026 9:00 AM EDTOffice Visit [facility] [place] [facility] [address] [facility] [address] [place] [address] Doretha Harris MD [address] [place] [address] Health MaintenanceDue DateLast DoneCommentsCT Mwknwtpxrevv10/09/1963Colonoscopy 1962Colorectal Cancer Batepkorv39/09/1963FIT-DNA (Cologuard)1962FIT 1962HIV Cklwqndxr29/09/1963Lipid Panel1962Medicare Annual Wellness Visit (AWV)1962 7650Xggmcdzgzvkla50/09/1963MMR Vaccines (1 of 1 - Standard series)11/25/1963Hepatitis C Svfefxkea27/09/1981Pneumococcal Vaccine (1 of 2 - PCV)1981Lung Cancer Ludcfadbe20/09/2013PSA Prostate Cancer Screening 2012RSV High Risk: (Elderly (60+) or Population) (1 - Risk 50-74 years 1-dose series)2012Zoster Vaccines (1 of 2)2012DTaP/Tdap/Td Vaccines (2 - Td or Tdap)Influenza Vaccine (#1)2025 COVID-19 Vaccine (1 - season)2025Diabetes Oldpqfayi25/24/2025 04/10/2024, 02/11/2024, 02/01/2019, Additional history existsBone Density Scan Kzxrtgsqsmql95/28/2024HIB VaccinesAged OutNo longer eligible based on patient's [...] manage spine surgery Care PlanPatient has spine surgeryDorehta Wasserman MD Medical Devices ImplantedTypeAreaManufacturerDevice IdentifierShelf Expiration DateModel / Serial / LotAllograft, [employer]ad [employer]otic 6 X 11 X 14 - [id number] - [id number] Implanted:Qty: 1 on 04/09/2024 [facility]: [employer]03/14/[id number] / [id number] / Allograft, Triad Lordotic 6 X 11 X 14 - [id number] - [id number] Implanted:Qty: 1 on 04/09/2024 [facility]: [employer]04/29/[id number] / [id number] / Plate, Acp, 1.6v, 2 Level, 34mm - [id number] Implanted:Qty: 1 on 04/09/2024 [facility]: [employer] [id number] / / Screw, Acp, Self Drill, 3.5 X 17mm, Variable - [id number] Implanted:Qty: 2 on 04/09/2024 [facility]: [employer] [id number] / / 3.5 X 19mm Screw Implanted:Qty: 4 on 04/09/2024 [facility] [employer] [id number] / / Description:per bill only dr 04/10 Procedures Procedure NamePriorityDate/TimeAssociated DiagnosisCommentsBASIC METABOLIC PANEL Ggmoazv7204/10/2024 9:19 AM EDT DEXA BONE GLRMRUAHhorihr25/28/2024 10:50 AM EDT Cervical radiculopathy from Last 3 Months or Most Recently Relevant to Health Maintenance Results * (ABNORMAL) Basic metabolic panel (04/10/2024 9:19 AM EDT)ComponentValueRef RangeTest MethodAnalysis TimePerformed AtPathologist KxkybngsqTadoykx618(H)74 - 99 mg/dL LAB CHEMISTRY METHOD 04/10/2024 10:32 [facility] UALKdjzmh393622 - 145 mmol/L LAB CHEMISTRY METHOD 04/10/2024 10:32 [facility] LABPotassium4.53.5 - 5.3 mmol/L LAB CHEMISTRY METHOD 04/10/2024 10:32 AM [facility] CWOIdyhzcot78866 - 107 mmol/L LAB CHEMISTRY METHOD 04/10/2024 10:32 AM [facility] ZIEIrddjkhhnbv1698 - 32 mmol/L LAB CHEMISTRY METHOD 04/10/2024 10:32 AM [facility] LABAnion Fib5838 - 20 mmol/L LAB CHEMISTRY METHOD 04/10/2024 10:32 AM [facility] LABUrea Hxxlrwvo623 - 23 mg/dL LAB CHEMISTRY METHOD 04/10/2024 10:32 AM [facility] LABCreatinine0.860.50 - 1.30 mg/dL LAB CHEMISTRY METHOD 04/10/2024 10:32 AM [facility] LABeGFR>90>60 mL/min/1.73m*2 LAB CHEMISTRY METHOD 04/10/2024 10:32 AM [facility] LABComment: Calculations of estimated GFR are performed using the 2020 CKD-EPI Study Refit equation without therace variable for the IDMS-Traceable creatinine methods. https://jasn.asnjournals.org/content//ASN.7448648046 Calcium9.08.6 - 10.6 mg/dL LAB CHEMISTRY METHOD 04/10/2024 10:32 AM [facility] LABSpecimen (Source)Anatomical Location / LateralityCollection Method / VolumeCollection TimeReceived TimeBloodVenous blood specimen / UnknownVenipuncture / Yewxxhc3504/10/2024 9:19 AM EDT1 10:03 AM EDT Narrative Authorizing ProviderResult TypeResult StatusXiaofeneeta Harris MDLAB BLOOD ORDERABLES Final ResultPerforming OrganizationAddressCity/State/ZIP CodePhone Number [address] [address] * XR DEXA bone density (02/13/2024 10:50 AM EDT)Specimen (Source)Anatomical Location / LateralityCollection Method / VolumeCollection TimeReceived Time 12/29/2024 8:11 AM EDT12/29/2024 8:11 AM EDT Impressions MMODAL - 12/29/2024 [...] Lopez 12/29/2024 8:09 AM Dictation workstation: ?? [id number] N[facility]ative [facility] - 12/29/2024 8:09 AM EDT Interpreted By: Ruddy Lopez, STUDY: DEXA BONE DENSITY02/13/2024 10:50 am ?? INDICATION: Signs/Symptoms:r/o osteoporosis, NEED AXIAL SKELETON IMAGES.. The patient is a 63 y/o ??year old M. ?? ,M54.12 Radiculopathy, cervical region ?? COMPARISON: None. ?? ACCESSION NUMBER(S): [id number] ?? ORDERING CLINICIAN: DORETHA HARRIS ?? TECHNIQUE: [...] Radiculopathy, cervical region COMPARISON: None. ACCESSION NUMBER(S): [id number] ORDERING CLINICIAN: DORETHA HARRIS TECHNIQUE: DEXA BONE [...] Ruddy Lopez 12/29/2024 8:09 AM Dictation workstation: [id number] Authorizing ProviderResult TypeResult StatusXilara EDMONDSON DXA PROCEDURES Final ResultPerforming OrganizationAddressCity/State/ZIP CodePhone Number MMODAL from Last 3 Months or Most Recently Relevant to Health Maintenance Additional Health Concerns Active ProblemsNoted DateDiagnosed DatePatient has spine qpxsemb9101/09/2024 Insurance * Guarantor: Se Kong TypeRelation to PatientDate of BirthPhoneBilteays [facility] AddressPersonal/CvyoppIsyj55/09/1961 [address] [place] [address] * Guarantor: Se Kong TypeRelation to PatientDate of BirthPhoneBilteays valley cancer center AddressPersonal/TkqybyCjez[birth year][address] [place] [address] Advance Directives For more information, please contact: [phone] (Available ) TypeDate RecordedPatient RepresentativeExplanationLiving Will10/05/2023 9:39 AM * Full Code (Latest Code Status on File) Date ActivatedDate UqzvbjzpdznWfxcpdfy88/23/2024 6:57 PMQuestionAnswerComments Plan of Care:* Code Status Discussion Completed Decision Maker:* Patient * Full Code Date ActivatedDate SqnxkkgfzeaRidjjgbp19/23/2024 11:50 AM04/09/2024 6:57 PM QuestionAnswerCommentsPlan of Care:* Code Status Discussion Completed Decision Maker:* Patient Care Teams Team MemberRelationshipSpecialtyStart DateEnd Date Jax Hastings DO [address] [place] [address] [facility] - General01/03/19 [place] [address] [place] [address] Consulting PhysicianHematology and Oncology10/05/23 René Narayanan PA-C [address] [place] [address] Physician AssistantNeurosurgery12/12/23
--- OUTSIDE RECORDS SUMMARY | 2025-05-20 11:15 | XMS_ITS | Encounter Summary ---
Author Organization [facility] Address [address] [facility] [place] [address] Care Team Providers Care Packing Room Worker Name Role Phone Jax Hastings Neisha JOSÉ Primary Care Provider [phone] Encounter Details DateTypeDepartmentCare Team (Latest Contact Info)Oeoenohwcfs93/26/2025Orders Only [facility] [place] [facility] [address] [facility] [address] [place] [address] Amber Mi MA Occipital neuralgia of left side (Primary Dx) Social History Tobacco UseTypesPacks/DayYears UsedDateSmoking Tobacco: Every DayCigarettes Smokeless Tobacco: Never Comments:6-10 cigarettes/day Alcohol UseStandard Drinks/WeekCommentsNot Currently0 (1 standard drink = 0.6 oz pure alcohol)Sex and Gender InformationValueDate RecordedSex Assigned at Male11/22/2022 2:37 PM EDTLegal CipHmzw8808/30/2022 7:14 PM EDTGender IdentityMale 11/22/2022 2:37 PM EDTSexual BkwpbqhwsbkSozvehlq52/07/2023 2:37 PM EDTdocumented as of this encounter Plan of Treatment DateTypeDepartmentCare Team (Latest Contact Info)Ceomhandxnf88/07/2026 3:00 PM ESTOffice Visit [facility] [address] [facility] [address] [place] [address] Oziel Cadena MD [address] [place] [address] [place] [id number] 01/08/2026 8:30 AM EDTOffice Visit [facility] [place] [facility] [address] [place] [address] Anahi Franco PA [address] [place] [address] documented as of this encounter Visit Diagnoses Diagnosis Occipital neuralgia of left side- Primary documented in this encounter Care Teams Team MemberRelationshipSpecialtyStart DateEnd Date Jax Hastings DO [address] [place] [address] PCP - GeneralFamily Medicine02/13/23documented as of this encounter
--- OUTSIDE RECORDS SUMMARY | 2025-05-20 11:21 | XMS_ITS | CCD ---
Author Organization [facility] CliniSywy Care Team Providers Care [facility] [employer] Name Role Phone Griselda Krause Primary Care Provider Griselda Krause Attending Provider Griselda Krause Unavailable Unavailable Unavailable Griselda Krause Unavailable Sheng Schneider Unavailable Griselda Krause Primary Care Provider Griselda Krause Unavailable DO Griselda Krause Primary Care Provider MD Oziel Cadena Attending Provider BAILEY Gaytan Emergency Provider MD Loi Wong Jr Emergency Provider Unavailable Unavailable DO Griselda Krause Primary Care Provider [phone] MD Oziel Cadena Attending Provider BAILEY Gaytan Emergency Provider MD Loi Wong Jr Emergency Provider BAILEY Mota Attending Provider BAILEY Mota Attending Provider DO Griselda Krause Primary Care Provider MD Oziel Cadena Attending Provider Trish Carney Unavailable Griselda Krause Primary Care Provider Darling Griselda Wright Unavailable Tammi NORRIS, Oziel Ruiz Unavailable FLORES CAT Attending Unavailable FLORES CAT Admitting Unavailable KUNS, GRISELDA WRIGHT Primary Care Unavailable Kuns, DO Griselda Primary Care Provider [phone] Kuns, DO Griselda Attending Provider MD Lima Joseph Attending Provider Dr. BRET HDEZ Attending Unavailable PCP, OTHER Primary Care Unavailable PCP, Other Primary Care Physician [phone] Kuns, DO Griselda Primary Care Provider BAILEY Gaytan Emergency Provider quentin, DO Rohit Mullins Emergency Provider Darling, DO Camara Attending Provider [phone] Lilliam Cason Unavailable Andreas, DO Griselda Primary Care Provider [phone] BAILEY Gaytan Emergency Provider quentin, DO Rohit Mullins Emergency Provider Darling, DO Griselda Attending Provider MD Lilliam Cason Attending Provider Ruddy Harvey Unavailable [phone] BAILEY Mota Attending Provider MD Ruddy Harvey Attending Provider [phone] Kuns, DO Griselda Primary Care Provider [phone] Kuns DO, Griselda R Primary Care Provider [phone] Kuns, DO Griselda Primary Care Provider JOSE CRUZ KHAN Attending Unavailable JOSE CRUZ KHAN Referring Unavailable KUNS, GRISELDA R Primary Care Unavailable JOSE CRUZ KHAN Attending Unavailable JOSE CRUZ KHAN Referring Unavailable KUNS, GRISELDA R Primary Care Unavailable Kuns, DO Griselda Primary Care Provider MD Ruddy Harvey Attending Provider Darling DOGriselda R Primary Care Provider [phone] Andreas DO, Griselda R Primary Care Provider Stiven NORRIS, Helder Jarrett Unavailable AndreasDO Camara Attending Provider Griselda Krause Primary Care Provider [phone] Oziel Cadena MD Unavailable Andreas DO, Griselda R Primary Care Provider Milks PA-C, Solomon A Unavailable Milks PA-C, Solomon A Unavailable Darling Griselda JOSÉ R Primary Care Provider Griselda Krause DO Primary Care Provider [phone] Milks PA-C, Solomon A Attending Provider Andreas Griselda JOSÉ Primary Care Provider [phone] Milks PA-C, Solomon A Attending Provider Wes NORRIS, Ruddy Joseph Attending Provider [phone] Humberto NORRIS, Daisy Driver Emergency Provider Griselda Krause DO R Primary Care Provider Griselda Krause DO Primary Care Provider Manisha Negron APRN Emergency Provider [phone] Andreas DOGriselda Other Provider Manisha Negron APRN Attending Provider Milks PA-C, Solomon Nae Attending Provider Griselda Krause DO R Primary Care Provider Stiven NORRIS, [...] Attending Provider Kuns , Griselda Attending Provider [phone] HARRIS, XIAOFEI Referring Unavailable KUNS, GRISELDA [...] Care Provider Lilliam Cason MD Attending Provider [phone] Danya CERVANTES, Elizabeth Mullins Attending Provider Conchita NORRIS, Nathanael Other Provider Solomon Montez APRN Attending Provider Kuns DO, Griselda Attending Provider Kuns DO, Griselda Primary Care Provider Solomon Montez APRN Attending Provider Roxy NORRIS, Andri Attending Provider Sofia Arias DO Attending Provider [phone] Kuns DO, Griselda Primary Care Provider Kuns [...] Giedraitis , Andrius [place] Attending Unavailable Griselda Krause DO Primary Care Provider Sarina Ramsey MD Attending Provider Hugo Sofia JOSÉ Attending Provider [phone] Griselda Krause DO Attending Provider Lilliam Cason MD Attending Provider DEBRA FIGUEROA Referring Unavailable DEBRA FIGUEROA Attending Unavailable Unavailable Unavailable Unavailable Allergies Allergy ClassificationReported Allergen(s)Allergy TypeDate of OnsetReaction(s) FacilityCephalosporins (antibiotic) (1 source)CephalexinDrug Qxethmj75-02-1707NwbqwStuurybdjC[facility] (20 sources)Cephalexin; Translations: [CEPHALEXIN]Drug Mnvhwap44-08-8954Dduqt [facility] (20 sources)Cephalexin; Translations: [Keflex]Drug AllergyJ[facility] [employer] [facility] Other (1 source)Cephalexin; Translations: [Keflex]Drug AllergyHiNav[facility] (17 sources)Keflet; Translations: [KEFLET]Propensity to adverse reactions 27-72-8379XilduQkzpkgbdmePeoples Hospital (5 sources)varenicline; Translations: [varenicline]Drug Mxzfgrf68-08-3154 [facility] (1 source)ALLERGIES NOT ON FILE; Translations: [ALLERGIES NOT ON FILE]Propensity to adverse reactions (disorder)[facility] NEGATED: Highlighted row has been ruled out! (1 source)natural latex rubber; Translations: [LATEX, NATURAL RUBBER]Drug allergy (disorder)S EnterpriseNEGATED: Highlighted row has been ruled out! (1 source)No IV Contrast Allergy.; Translations: [IV Dye, Iodine Containing]Drug allergy (disorder)[facility] Medications Current Medications MedicationDrug Class(es)DatesSig (Normalized)Sig (Original)acetaminophen 325 mg oral tablet (1 source)Start: 52-62-3561gfyk 1 tablet by mouth every six otdel735 mg, oral, Every 6 hours, First dose on Sun04/09/24 at 1915, Phase II/On Unit, If ordered PRN for pain, nurse is permitted to administer this medication for higher pain scores based on patient preference? Yesacetaminophen 325 mg / HYDROcodone bitartrate 7.5 mg oral tablet (20 sources)Opioid AgonistStart: 42-88-2445xfic 1 tablet by mouth twice daily as needed for painHydrocodone-Acetaminophen 7.5-325 mg tablet Active 1 TAB PO Twice daily as needed for pain October 05, 2024 11:00pm Complies with drug therapy Start: 04-01-2024 End: 49-65-3971ujcb 1 tablet by mouth twice dailyHydrocodone-Acetaminophen 7.5- 300 mg tablet Discontinued 1 TAB PO Twice daily 0 March 31, 2024 11:00pm April 28, 2024 9:44amStart: 28-59-8678DVYOLhykznx-acetaminophen ([place]) 5- 325 MG tablet 10/10/2023 ActiveStart: 09-05-2023 End: 53-15-6267yflp 1 tablet by mouth every eight hours as neededHydrocodone- Acetaminophen 5-325 mg tablet Discontinued TAB PO Every 8 hours as needed 0 August 11:00pm April 01, 2024 10:01amStart: 92-69-4699jdyy 1 tablet by mouth once daily as needed for painHYDROcodone-acetaminophen ([place]) 5-325 MG tablet take 1 tablet orally daily NEEDED FOR PAIN MUST LAST 30 DAYS 10/10/2023 ActiveStart: 12-10-2017 End: 33-29-7120vgel 1 tablet by mouth every four hoursHydrocodone-Acetaminophen ([place]) 5-325 mg tablet Discontinued 1 TAB PO Q4H 10 December 10, 2017 April 29, 2018 2:12pm Pleurodynia Pleurodynia pain End: 37-35-6536kqdh 1.5 tablets by mouth twice daily as needed for pain HYDROcodone-acetaminophen ([place]) 5-325 mg tablet Take 1.5 tablets by mouth 2 times a day as neededfor severe pain (7 - 10). 04/10/2024 Discontinued (Stop Taking at Discharge)acetaminophen 325 mg / oxyCODONE hydrochloride 5 mg oral tablet (20 sources)Opioid AgonistStart: 04-30-2024 End: 86-20-0025ifmb 1 tablet by mouth every six hours for painoxyCODONE- acetaminophen (Percocet) 5-325 mg tablet Indications: Acute postoperative pain Take 1 tablet by mouth every 6 hours if needed for severe pain (7 - 10) (pain) for up to 7 days. 28 tablet 04/30/2024 05/07/2024 ActiveStart: 04-28-2024 End: 40-14-9765ngbb 1 tablet by mouth every eight hours as neededOxycodone- Acetaminophen (Percocet) 5-325 mg tablet Discontinued 1 TAB PO Every 8 hours as needed 0 April 28, 2024 12:00am September 20, 2024 10:05amStart: 04-10-2024 End: 43-72-2927rqdi 1 tablet by mouth every six hours for painoxyCODONE- acetaminophen (Percocet) 5-325 mg tablet Indications: Cervical radiculopathy Take 1 tablet by mouth every 6 hours if needed for severe pain (7 - 10) (pain) for up to 7 days. 28 tablet 04/10/2024 04/17/2024 ActiveStart: 04-17-2022 End: 86-29-1466bidn 1 tablet by mouth every six hours as needed for pain Oxycodone-Acetaminophen (Percocet) 5-325 mg tablet Discontinued 1 - 2 TAB PO Every 6 hours as needed for pain 20 4 0 April 17, 2022 July 17, 2022 8:01am Acute left-sided thoracic back pain Pain in thoracic spine1 ml alirocumab 75 mg/ml auto-injector (5 sources)PCSK9 InhibitorStart: 14-33-1214vpxlzn 75 mg by subcutaneous injection every other weekAlirocumab (Praluent Pen) 75 mg/mL pen injector Active 75 MG SUBCUT Q14D 7 90 November 02, 2024 11:00pm Complies with drug therapy Alirocumab (Praluent Pen) 75 mg/mL pen injector (3 sources)Start: 05-98-0472xskwzq 75 mg by subcutaneous injection every other weekAlirocumab (Praluent Pen) 75 mg/mL pen injector Active 75 MG SUBCUT Q14D 7 90 November 03, 2024 12:00amaspirin 81 mg delayed release oral tablet (20 sources)Platelet Aggregation Inhibitor, Nonsteroidal Anti-inflammatory Drug Start: 96-11-9392eieb 1 tablet by mouth once dailyaspirin 81 mg EC tablet Indications: Cervical radiculopathy Take 1 tablet (81 mg) by mouth once daily. Do not fill before April 14, 2024. 04/14/2024 ActiveStart: 77-61-1020zowk 1 tablet by mouth once dailyaspirin 81 mg EC tablet Indications: Cervical radiculopathy Take 1 tablet (81 mg) by mouth once daily. Do not fill before April 14, 2024. 04/14/2024 ActiveStart: 08-02-2023 End: 16-84-6903jrov 1 tablet by mouth once dailyAspirin 81 mg tablet,delayed release (DR/EC) Active 81 MG PO Daily August 02, 2023 12:00am Complies with drug therapyStart: 07-17-2022 End: 00-73-5593kjfr 1 capsule by mouth once dailyAspirin 81 mg Capsule Discontinued 81 MG PO Daily July 17, 2022 12:00am August 02, 2023 12: 45pmASPIRIN 81 PO ActiveASPIRIN 81 PO Aspir-81 ActiveASPIRIN 81 PO Aspir-81 0 Activetake 1 tablet by mouth every twenty-four hoursAspirin [...] mg oral tablet (2 sources)gamma-Aminobutyric Acid-ergic AgonistStart: 02-70-5676ziwu 1 tablet by mouth three times daily as neededbaclofen (Lioresal) 10 MG tablet Take 1 tablet 3 times a day by oral route as needed for 15 days. Active bisacodyl 5 mg delayed release oral tablet (1 source)Stimulant LaxativeStart: 67-11-7545lgho 1 tablet by mouth every twenty-four hours as neededbusPIRone hydrochloride 10 mg oral tablet (20 sources)Start: 33-10-7677bqiv 5 mg by mouth twice daily5 mg, oral, 2 times daily, First dose on Sun04/09/24 at 2100, Phase II/On UnitStart: 01-31-2024 End: 87-49-5883Yckvbrnxn 5 mg tablet Discontinued 5 MG PO January 30, 2024 11:00pm July 03, 2024 9:50amStart: 12-31-2023 End: 87-24-7093rpye 1 tablet by mouth once daily in [...] meq/ml injectable solution (2 sources)Start: 04-09-2024 End: 75-87-9359Ycvpr: 04-09-2024 End: 90-87-3412yyxv 20 mL intravenously every hour20 mL/hr, intravenous, Continuous, Starting on Sun04/09/24 at 1215, Preprocedurechlorhexidine gluconate 1.2 mg/ml mouthwash (10 sources)Start: 02-11-2024 End: 97-10-9082whyieuwpgagco (Hibiclens) 4 % external liquid Indications: Cervical radiculopathy , Senile osteoporosis Use as directed daily preoperatively 473 mL 02/11/2024 04/10/2024 Discontinued (Stop Taking at D ischarge)Start: 02-11-2024 End: 90-89-8733dwfuxvftnumyi (Peridex) 0.12 % solution Indications: Cervical radiculopathy , Senile osteoporosis Swish and spit with 15ml of solution the night before and morning of surgery. Do not swallow. 15 mL 02/11/2024 04/10/2024 Discontinued (Stop Taking at Discharge)citalopram 20 mg oral tablet (20 sources)Serotonin Reuptake InhibitorStart: 55-98-4763ewkf 1 tablet by mouth once dailyCitalopram 20 mg tablet Active 20 MG PO Daily 90 1 February 19, 2025 10:51am Anxiety and depression Anxiety disorder, unspecified Depression, unspecified Complies with drug therapyStart: 12-03-2023 End: 38-56-9104obln 1 tablet by mouth once dailyCitalopram (Celexa) 10 mg tablet Discontinued 10 MG PO Daily 90 1 April 01, 2024 10:02am September 29, 2024 2:11pmStart: 12-26-2021 End: 24-64-3048ktpe 1 tablet by mouth once dailyCitalopram 20 mg tablet Discontinued 20 MG PO Daily August 02, 2023 12:00am December 03, 2023 9:48am FreeTextSi tablet Orally Once a day; Note: Source Status: Continue; Provider: Darling Camara RStart: 26-06-9566pgwu 1 tablet by mouth once daily citalopram (CELEXA) 40 mg tablet Take 40 mg by mouth once daily. 0 10/22/2018 ActiveStart: 12-10-2017 End: 84-41-8003Wjpkticacm 40 mg tablet Discontinued 20 MG PO Daily December 09, 2017 11:00pm April 29, 2018 2:12pmStart: 12-10-2017 End: 63-57-5905bdpo 20 mg by mouth once dailyCitalopram Discontinued 20 MG PO Daily December 10, 2017 12:00am April 29, 2018 3:12pmtake 0.5 tablet by mouth once dailycitalopram (CeleXA) 20 mg tablet Take 0.5 tablets (10 mg) by mouth once daily. ActiveComment on above:Take 40 mg by mouth once daily.clopidogrel 75 mg oral tablet (20 sources)P2Y12 Platelet InhibitorStart: 04-90-5790tfjd 1 tablet by mouth once dailyClopidogrel 75 mg tablet Active 75 MG PO Daily February 18, 2025 11:00pm Complies with drug therapyStart: 39-34-7569ljflvnpgdqq (Plavix) 75 mg tablet Indications: Cervical radiculopathy Take 1 tablet (75 mg) by mouth once daily. Do not fill before April 23, 2024. 04/23/2024 ActiveStart: 04-23-2024 clopidogrel (Plavix) 75 mg tablet Indications: Cervical radiculopathy Take 1 tablet (75 mg) by mouth once daily. Do not fill before April 23, 2024. 04/23/2024 ActiveStart: 04-14-2024 End: 14-92-3206ovbi 1 tablet by mouth once dailyclopidogrel (Plavix) 75 mg tablet Indications: Cervical radiculopathy Take 1 tablet (75 mg) by mouth once daily. Do not fill before April 14, 2024. 04/14/2024 04/10/2024 Discontinued Start: 05-07-2023 End: 78-44-9591qect 1 tablet by mouth once dailyClopidogrel (Plavix) 75 mg tablet Discontinued 75 MG PO Daily August 02, 2023 12:00am January 23, 2024 1:33pm FreeTextSi tablet Orally Once a day; Note: Source Status: Taking; Provider: Darling Camara ( )cyclobenzaprine hydrochloride 10 mg oral tablet (20 sources)Muscle RelaxantStart: 06-81-1360vcgn 1 tablet by mouth three times daily as needed for muscle spasmscyclobenzaprine (Flexeril) 10 mg tablet Indications: muscle spasm Take 1 tablet (10 mg) by mouth 3 times a day as needed for muscle spasms for up to 7 days. 21 tablet 06/03/2024 ActiveStart: 04-30-2024 End: 69-87-5896ropw 1 tablet by mouth every eight hours for muscle spasms cyclobenzaprine (Flexeril) 10 mg tablet Indications: Muscle spasms of neck Take 1 tablet (10 mg) bymouth every 8 hours if needed for muscle spasms. 90 tablet 04/30/2024 ActiveStart: 04-09-2024 End: 23-70-0029jgoe 1 tablet by mouth three times daily as needed for muscle spasmscyclobenzaprine (Flexeril) 10 mg tablet Indications: muscle spasm Take 1 tablet (10 mg) by mouth 3 times a day as needed for muscle spasms for up to 7 days. 21 tablet 04/17/2024 ActiveStart: 03-21-2023 End: 81-70-9893igrj 1 tablet by mouth three times daily as needed for muscle spasmsCyclobenzaprine 10 mg tablet Discontinued 10 MG PO Three times daily as needed for Muscle Spasm 10 0 March 20, 2023 11:00pm May 07, 2023 8:22am0.4 ml enoxaparin sodium 100 mg/ml prefilled syringe (1 source)Low Molecular Weight HeparinStart: 03-15-3731jegftq 40 mg by subcutaneous injection every twenty-four [...] 0.2 mg/ml prefilled syringe (3 sources)Opioid AgonistStart: 80-80-0765bsrg 0.2 mg intravenously every four hours as [...] with radiology test) (20 sources)Start: 11-02-2023 End: 58-18-1548ke contrast (will be provided with radiology test) [...] Each 0 11/02/2023 11/03/2023 ActiveStart: 11-02-2023 End: 85-55-8432pwxyzx 1 dose intravenously once, then inject 1 [...] Each 0 11/02/2023 11/02/2023 ExpiredStart: 09-20-2022 End: 97-61-8117snfivx 1 dose intravenously onceiv contrast (will be [...] Each 0 09/20/2022 09/21/2022 ActiveStart: 10-30-2021 End: 21-08-7108wngpvs 1 dose intravenously once, then inject 1 [...] Each 0 10/30/2021 10/30/2021 ActiveStart: 10-30-2021 End: 59-35-7322dh contrast (will be provided with radiology test) [...] 1 Each 0 10/30/2021 10/31/2021 Active Start: 60-33-4525ky contrast (will be provided with radiology test) [...] administration guidelines link. 1 Each 03/15/2020 ActiveStart: 63-76-8341sv contrast (will be provided with radiology test) [...] day ActiveMultivitamin (Multiple Vitamins) tablet (20 sources)Start: 71-46-0113ljlf 1 tablet by mouth once dailyMultivitamin (Multiple Vitamins) tablet Active 1 TAB PO Daily August 02, 2023 12:00am Complies with drug therapyStart: 89-11-1763phox 1 tablet by mouth once daily Start: 42-86-5314sjwp 1 tablet by mouth once dailyMultivitamin (Multiple Vitamins) tablet Active 1 TAB PO Daily August 02, 2023 1:00am Complies with drug therapyStart: 57-51-8374hpyi 1 tablet by mouth once dailyMultivitamin (Multiple Vitamins) tablet Active 1 TAB PO Daily August 02, 2023 1:00am Start: 86-93-6366ucxb 1 tablet by mouth once dailyMultivitamin (Multiple [...] by mouth once daily.Naloxone (1 source)Opioid AntagonistStart: 95-12-6860nuiRQIQAG hydrochloride 10 mg oral tablet (3 sources)Opioid AgonistStart: 45-58-9010lkcc 1 tablet by mouth every four hours as neededStart: 55-67-1878kjni 1 tablet by mouth every four hours as neededStart: 96-30-1354qqnl 1 tablet by mouth every four hours as kragda19 mg, oral, Every 4 hours PRN, pain severe (7-10), first line, Starting on Sun04/09/24 at 1857, Phase II/On Unit, If ordered PRN for pain, nurse is permitted to administer this medication for higher pain scores based on patient preference? Yespantoprazole 40 mg delayed release oral tablet (16 sources)Proton Pump InhibitorStart: 22-13-1898fmvj 1 tablet by mouth twice dailyPantoprazole 40 mg tablet,delayed release (DR/EC) Active 40 MG PO Twice daily 60 30 11 November 17, 2024 1:10pm Complies with drug therapyStart: 11-05-2024 End: 65-48-1629livn 1 tablet by mouth once daily at bedtimePantoprazole 40 mg tablet,delayed release (DR/EC) Discontinued 40 MG PO Daily at bedtime 56 56 3 November 04, 2024 11:00pm November 17, 2024 1:16pmpolyethylene glycol 3350 93033 mg powder for oral solution (1 source)Osmotic LaxativeStart: g, oral, 2 times daily, First dose on Sun04/09/24 at 2100, Phase II/On Unit, Bowel Regimen - for prevention of constipation.tiZANidine 4 mg oral capsule (20 sources)Central alpha-2 Adrenergic AgonistStart: 14-22-4364tdqg 1 capsule by mouth twice daily as neededTizanidine 4 mg capsule Active 4 MG PO Twice daily as needed February 18, 2025 11:00pm Complies with drug therapyStart: 08-29-2022 End: 95-47-1486fonf 1 tablet by mouth once daily at bedtimeTizanidine (Zanaflex) 4 mg tablet Discontinued 4 MG PO Daily at bedtime August 02, 2023 12:00am December 03, 2023 9:58am FreeTextSi tablet as needed Orally at bedtime; Note: Source Status: Taking; Provider: Satish Howardtart: 04-17-2022 End: 18-84-7375saba 1 capsule by mouth twice daily as neededTizanidine 4 mg capsule Discontinued 4 MG PO Twice daily as needed for muscle spasticity 14 0 April 16, 2022 11:00pm July 17, 2022 8:02amStart: 04-06-2022 End: 32-51-1315iajs 2 tablets by mouth at bedtimeTizanidine 4 mg tablet Discontinued 8 MG PO Bedtime April 05, 2022 11:00pm August 02, 2023 1 2:50pmStart: 04-06-2022 End: 92-89-5915vghh 8 mg by mouth at bedtimeTizanidine Discontinued 8 MG PO Bedtime April 06, 2022 12:00am August 02, 2023 1:50pmStart: 04-06-2022 take 1 tablet by mouth every twenty-four hours as neededtiZANidine (ZANAFLEX) 4 mg tablet Take 4 mg by mouth at bedtime as needed. 0 08/29/2022 ActiveStart: 99-80-3951zkEAJovdxp HCl - 4 MG Oral Tablet Quantity: [...] Central Nervous System Stimulant, MethylxanthineStart: 08-31-2022 End: 16-02-3147gpgz 1 tablet by mouth every four to [...] oral tablet (20 sources)Opioid AgonistStart: 05-07-2023 End: 08-28-7164gtku 1 tablet by mouth twice daily as needed for pain Acetaminophen-Codeine 300-30 mg tablet Discontinued 1 TAB PO Twice daily as needed for Pain May 07, 2023 12:00am August 02, 2023 12:44pm acetaZOLAMIDE 250 mg oral tablet (20 sources)Carbonic Anhydrase InhibitorStart: 08-31-2022 End: 62-17-5061gjtv 1 tablet by mouth once daily in the morning, then take 2 tablets by mouth at bedtimeacetaZOLAMIDE (DIAMOX) 250 mg tablet take 1 tablet by mouth every morning and AFTERNOON and 2 at bedtime as directed 0 08/31/2022 Active End: 07-27-3049sfss 1 tablet by mouth every twenty-four hoursacetaZOLAMIDE (Diamox) 250 mg tablet Take by mouth once every 24 hours. 04/10/2024 Discontinued (Therapy completed)take 1 tablet by mouth every twelve hours acetaZOLAMIDE 125 MG 1 tablet Orally Twice a day ActiveComment on above:take 1 tablet by mouth every morning and AFTERNOON and 2 at bedtime as directed [id number] 200 actuat albuterol 0.09 mg/actuat metered dose inhaler (20 sources)beta2-Adrenergic AgonistStart: 09-20-2024 End: 00-98-0952Adrgsfsab Sulfate 90 mcg/actuation HFA aerosol inhaler Discontinued 1 INH INHALATION Every 4 hours as needed for shortness of breath September 19, 2024 11:00pm October 06, 2024 1:05pmStart: 12-47-4739ibiv 2 puff(s) by inhalation every four hoursalbuterol HFA 90 mcg/act inhaler Inhale 2 puffs every 4 (four) hours if needed 04/10/2024 ActiveStart: 03-79-1596pmhn 2 puff(s) by inhalation every four hours for wheezingalbuterol 90 mcg/actuation inhaler Indications: Cervical radiculopathy Inhale 2 puffs every 4 hoursif needed for wheezing or shortness of breath. 18 g 11 04/10/2024 ActiveStart: 04-09-2024 Start: 08-02-2023 End: 88-39-9885ftiy 1 puff(s) by inhalation every four hours as neededAlbuterol Sulfate 90 mcg/actuation HFA aerosol inhaler Discontinued 1 PUFF INHALATION Every 4 hoursFebr2023 12:00am August 02, 2023 12:45pm FreeTextSi puff as needed Inhalation every 4 hrs; Note: Source Status: Start; Refills: 1; Provider: Darling Camara RStart: 07-02-2023 End: 84-40-9924dgel 2 puff(s) by inhalation every four hoursalbuterol 90 mcg/actuation inhaler Inhale 2 puffs every 4 hours if needed. 07/02/2023 04/10/2024 Discontinued (Therapy completed)Start: 62-98-5737hpjc 2 puff(s) by inhalation every four hoursalbuterol HFA 90 mcg/act inhaler Inhale 2 puffs every 4 (four) hours if needed 0 07/02/2023 ActiveStart: 07-74-7831lhyp 1 puff(s) by inhalation every four hours as neededAlbuterol Sulfate HFA 108 (90 Base) MCG/ACT 1 puff as needed Inhalation every 4 hrs Jun, ActiveALPRAZolam 0.25 mg oral tablet (20 sources)BenzodiazepineStart: 01-31-2024 End: 27-53-0157bvil 1 tablet by mouth once dailyAlprazolam (Xanax) 0.25 mg tablet Discontinued 0.25 MG PO Daily 30 0 January 30, 2024 11:00pm April 01, 2024 10:01am Anxiety and depression Anxiety disorder, unspecified Depression, unspecifiedStart: 61-91-9459ayzp 1 tablet by mouth once daily as neededALPRAZolam (XANAX) 0.25 mg tablet Take 0.25 mg by mouth once daily as needed. 0 09/12/2021 Activetake 1 tablet by mouth every twelve hoursALPRAZolam 0.25 MG 1 tablet Orally Twice a day prn ActiveComment on above:Take 0.25 mg by mouth once daily as needed.amLODIPine 10 mg oral tablet (20 sources)Dihydropyridine Calcium Channel BlockerStart: 02-01-2024 End: 03-42-5834ifuk 1 tablet by mouth once dailyAmlodipine 10 mg tablet Discontinued 10 MG PO Daily April 01, 2024 10:02am September 29, 2024 2:11pmStart: 11-29-2023 End: 57-52-3009fyri 1 tablet by mouth once dailyAmlodipine 10 mg tablet Discontinued 0 .ROUTE .COMPLEX 90 0 November 29, 2023 11:15am February 01, 2024 10:05am take 1 tablet orally dailyStart: 11-29-2023 End: 60-93-7143eyup 1 tablet by mouth once dailyAmlodipine Discontinued 0 .ROUTE .COMPLEX 90 November 29, 2023 12:15pm February 01, 2024 11:05am take1 tablet orally dailyStart: 91-42-0011sjyb 1 tablet by mouth once dailyAmlodipine Active 0 .ROUTE .COMPLEX 90 November 29, 2023 12:15pm take 1 tablet orally dailyStart: 09-05-2023 End: 05-95-7090qtnl 1 tablet by mouth once dailyAmlodipine 10 mg tablet Discontinued 10 MG PO Daily 30 30 2 September 04, 2023 11:00pm November 29, 2023 11:15amStart: 03-15-2023 End: 73-19-8423cffo 1 tablet by mouth once dailyAmlodipine 5 mg tablet Discontinued 5 MG PO Daily August 02, 2023 12:00am September 05, 2023 1:21pm FreeTextSi tablet Orally Once a day; Note: Source Status: Continue; Provider: Darling Camara Ramoxicillin 875 mg / clavulanate 125 mg oral tablet (20 sources)Penicillin-class AntibacterialStart: 09-20-2024 End: 35-59-5582ncyc 1 tablet by mouth twice dailyAmoxicillin-Pot Clavulanate 875-125 mg tablet Discontinued 1 TAB PO Twice daily 9 September 191:00pm October 06, 2024 1:05pmStart: 02-26-2023 End: 95-04-2489joah 1 tablet by mouth twice dailyAmoxicillin-Pot Clavulanate 875-125 mg tablet Discontinued 1 TAB PO Twice daily February 25, 2023 11:00pm May 07, 2023 8:99lmBmp2276-Nph Ecf-Jcjs-Uth-Asb-C (11 sources)Osmotic Laxative, Vitamin CStart: 10-10-2024 End: 84-54-3570Tcb2460-Sod Aic-Dxyj-Fwz-Asb-C (Plenvu) 140-9-5.2 gram powder in packet, sequential Discontinued 0 PO .COMPLEX 3 1 October 09, 2024 11:00pm October 24, 2024 10:48am POStart: 10-10-2024 End: 88-68-3340Pua1381-Sod Crt-Ilzh-Kdi-Asb-C (Plenvu) 140-9-5.2 gram powder in packet, sequential Discontinued 0 PO .COMPLEX 3 October 10, 2024 12:00am October 24, 2024 11:48am POStart: 02-76-2996Hgm2668-Sod Mgf-Xjsh-Qkb-Asb-C (Plenvu) 140-9-5.2 gram powder in packet, sequential Active 0 PO .COMPLEX 3 October 10, 2024 12:00am POatorvastatin 10 mg oral tablet (20 sources)HMG-CoA Reductase InhibitorStart: 08-26-1823ovpr 1 tablet by mouth once dailyatorvastatin (LIPITOR) 10 mg tablet Take 10 mg by mouth once daily. 0 09/28/2021 ActiveStart: 54-97-2026Rxvylqrndtuz Calcium 10 MG Oral Tablet Quantity: 90 Refills: 0 Ordered: 28-Sep-2021 DO Start : 28-Sep-2021 Active Comment on above:Take 10 mg by mouth once daily.azithromycin 250 mg oral tablet (20 sources)Macrolide AntimicrobialStart: 11-19-2024 End: 53-06-0657Quypkewwczdg (Zithromax Z-Slim) 250 mg tablet Discontinued 0 PO .COMPLEX 6 November 18, 2024 11:00pm February 19, 2025 10:11am For 250 mg dose pack: take 500 mg today (day 1), then 250 mg for 4 days (days 2-5) POStart: 09-20-2024 End: 94-20-7973ftij 2 tablets by mouth once dailyAzithromycin 250 mg tablet Discontinued 250 MG PO Daily 4 4 0 September 19, 2024 11:00pm October 06, 2024 1:06pm start on day 2 of therapyStart: 72-04-9773Rrusputyv Z-Slim 250 MG as directed Orally as directed 1 pack 15 Jun, 2024 ActiveStart: 56-05-8099Rosseogsi Z-Slim 250 MG as directed Orally Nov, ActiveStart: 11-02-2022 End: 29-72-5454vpaeesaogang (ZITHROMAX) 250 mg tablet Take by mouth as directed. TAKE 2 TABLETS BY MOUTH TODAY, THEN TAKE 1 TABLET DAILY FOR 4 DAYS 11/02/2022 11/02/2023 Discontinued (Discontinued by Patient)Start: 57-22-1619Gbafuxmsm Z- Slim 250 MG as directed Orally Jul, ActiveStart: 71-63-2569Yeioqlxxz Z- Slim 250 MG as directed Orally Feb, ActiveStart: 76-53-3049Jxfamfqoe Z- Slim 250 MG 2 tablet on the first day, then 1 tablet daily for 4 days Orally Once a day for 5 day(s) Nov, Not-TakingStart: 93-49-8920Eaqexpyod Z-Slim 250 MG 2 tablet on the first day, then 1 tablet daily for 4 days Orally Once a day 1 3 Jun, 2021 Activebetamethasone 0.5 mg/ml / clotrimazole 10 mg/ml topical cream (20 sources)Azole Antifungal, CorticosteroidStart: 03-08-2023 End: 01-61-7151Noqsunzbsrtk-Betamethasone 1-0.05 % cream Discontinued 1 APPLIC TOPICAL Twice daily August 02, 2023 12:00am August 02, 2023 12:47pm FreeTextSi application Externally Twice a day; Note: Source Status: Not- Taking\PRN; Refills: 1; Qty: 45 grams; Provider: Darling Leeulinumtoxina 200 unt injection (16 sources)Acetylcholine Release InhibitorStart: 07-20-2023 End: 67-74-3400Fwyyi 200u vial IJ Soln 200 units injection Indications: Spasmodic Torticollis Inject 400 units into neck muscles every 90 days 2 each 3 07/20/2023 01/08/2025 Discontinuedbrexpiprazole 1 mg oral tablet (20 sources)Atypical AntipsychoticStart: 08-02-2023 End: 59-21-6763pwxp 0.5 mg by mouth once dailyBrexpiprazole Discontinued 0.5 MG PO Daily August 02, 2023 2:09pm October 18, 2023 8:55amStart: 08-02-2023 End: 89-17-9798olqt 1 tablet by mouth once dailyBrexpiprazole 1 mg tablet Discontinued 0.5 MG PO Daily August 02, 2023 1:09pm October 18, 2023 7:55am Start: 23-81-9418drqt 1 tablet by mouth every twenty-four hoursRexulti 1 MG 1 tablet Orally Once a day samples provided May, ActiveStart: 05-31-2023 take 1 tablet by mouth every twenty-four hoursRexulti 0.5 MG 1 tablet Orally Once a day for 7 days samples provided May, Activebupivacaine hydrochloride 5 mg/ml injectable solution (18 sources)Amide Local AnestheticStart: 03-24-2025 End: 76-52-2047yabjmtroshb (Marcaine) 0.5 % injection 5 mgStart: 03-24-2025 End: 30-02-8747cqrydtahjhq (Marcaine) 0.5 % injection 5 mgStart: 03-24-2025 End: mg, Injection, Once, On Sun03/24/25 at 1415, For 1 doseStart: 03-24-2025 End: mg, Injection, Once, On Sun03/24/25 at 1415, For 1 doseStart: 02-17-2025 End: 86-63-0570jjzhnxiaenc (Marcaine) 0.5 % injection 5 mgStart: 02-17-2025 End: mg, Injection, Once, On Sun02/17/25 at 1345, For 1 doseStart: 12-30-2024 End: 88-52-8332iuoeuhhqjki (Marcaine) 0.5 % injection 5 mgStart: 12-30-2024 End: mg, Injection, Once, On Sun12/30/24 at 1615, For 1 doseStart: 11-19-2024 End: 04-91-6913imvsqwavtty (Marcaine) 0.5 % injection 5 mgStart: 11-19-2024 End: mg, Injection, Once, On Sun11/19/24 at 1315, For 1 doseStart: 09-24-2024 End: 28-38-0831tjxawezjziz (Marcaine) 0.5 % injection 5 mgStart: 09-24-2024 End: 55 mg (1 mL), Injection, Once, On Sun09/24/24 at 1045, For 1 dose Start: 08-05-2024 End: 06-70-9462qzhmzwvmbsd (Marcaine) 0.5 % injection 5 mgStart: 08-05-2024 End: 55 mg (1 mL), Injection, Once, On Sun08/05/24 at 1545, For 1 dose Start: 07-03-2024 End: 35-98-3060njelhdhuxiw (Marcaine) 0.5 % injection 5 mgStart: 07-03-2024 End: mg (1 mL), Injection, Once, On Sun07/03/24 at 1045, For 1 dose Start: 05-22-2024 End: 96-63-8488iwyngrlpxnw (Marcaine) 0.5 % injection 5 mgStart: 05-22-2024 End: mg (1 mL), Injection, Once, On Sun05/22/24 at 1330, For 1 dose 12 hr buPROPion hydrochloride 150 mg extended release oral tablet (10 sources)AminoketoneStart: 02-28-2019 End: 71-47-7491sfro 1 tablet by mouth twice dailybuPROPion SR (WELLBUTRIN SR) 150 mg 12 hr tablet Take 1 tablet by mouth twice daily. 60 tablet 2 02/28/2019 10/17/2022 DiscontinuedComment on above:Take 1 tablet by mouth twice daily. dexamethasone phosphate 4 mg/ml injectable solution (20 sources)CorticosteroidStart: 03-24-2025 End: 14-29-1077bogYUUZFsfxvb sod phos (Decadron) injection 4 mgStart: 03-24-2025 End: mg (1 mL), Injection, Once, On Sun03/24/25 at 1415, For 1 dose Start: 02-17-2025 End: 43-23-3592hehAVYKEfnyqq sod phos (Decadron) injection 4 mgStart: 02-17-2025 End: mg (1 mL), Injection, Once, On Sun02/17/25 at 1345, For 1 dose Start: 12-30-2024 End: 76-93-0882bjlPONVCanjrb sod phos (Decadron) injection 4 mgStart: 12-30-2024 End: 54 mg (1 mL), Injection, Once, On Sun12/30/24 at 1615, For 1 dose Start: 11-19-2024 End: 99-47-4420zxoVKIINcpsgd sod phos (Decadron) injection 4 mgStart: 11-19-2024 End: mg (1 mL), Injection, Once, On Sun11/19/24 at 1315, For 1 dose Start: 09-24-2024 End: 46-04-7961vrvMGGQQkgscb sod phos (Decadron) injection 4 mgStart: 09-24-2024 End: 54 mg (1 mL), Injection, Once, On Sun09/24/24 at 1045, For 1 dose Start: 08-05-2024 End: 59-73-3875iajRVVEFszrxe sod phos (Decadron) injection 4 mgStart: 08-05-2024 End: 54 mg (1 mL), Injection, Once, On Sun08/05/24 at 1545, For 1 dose Start: 07-03-2024 End: 51-05-4538qdrRHFCXcosqo sod phos (Decadron) injection 4 mgStart: 07-03-2024 End: 54 mg (1 mL), Injection, Once, On Sun07/03/24 at 1045, For 1 dose Start: 05-22-2024 End: 36-34-8403hwwAFDPFjcbax (Decadron) injection 4 mgStart: 05-22-2024 End: 73-24-4362gibknx 4 mg by intramuscular injection once4 mg, Intramuscular, Once, On Sun05/22/24 at 1330, For 1 doseStart: 04-09-2024 End: 10-24-98534 mg, intravenous, Once, On Sun04/09/24 at 2215, For 1 dose Start: 73-95-5742Blnamfxudrwte Active MG PO December 03, 2023 12:00amStart: 12-03-2023 End: 27-51-4715Pkhwgsfsvkvbk 2 mg tablet Discontinued MG PO December 02, 2023 11:00pm April 28, 2024 9:43amStart: 57-75-6267vpjGLTCEdsnzf (Decadron) 2 MG tablet Indications: Cervical radiculopathy , Cervical stenosis of spinal canal , Occipital neuralgia of left side 2mg 3 pills po X3 days,2 pills po daily X3 days , then 1 pill po daily X3 days then stop 9 days 18 pills 18 tablet 0 06/14/2023 Activedoxycycline hyclate 100 mg oral capsule (15 sources)Tetracycline-class DrugStart: 11-25-2024 End: 54-84-0465hohd 1 capsule by mouth twice dailyDoxycycline Hyclate 100 mg capsule Discontinued 100 MG PO Twice daily 20 10 0 2024 11:00pm February 19, 2025 10:11amStart: 11-05-2018 End: 86-61-7636rfqk 1 capsule by mouth every twelve hoursdoxycycline [...] day Not-Taking1 ml evolocumab 140 mg/ml auto-injector (5 sources)PCSK9 InhibitorStart: 10-27-2024 End: 78-98-9749glbkag 140 mg by subcutaneous injection every other week Evolocumab (Repatha Sureclick) 140 mg/mL pen injector Discontinued 140 MG SUBCUT EVERY 2 WEEKS 6 90October 26, 2024 11:00pm November 03, 2024 8:56amEvolocumab (Repatha Sureclick) 140 mg/mL pen injector (3 sources)Start: 10-27-2024 End: 00-75-1317ncpabs 140 mg by subcutaneous injection every other week Evolocumab (damasonae Perrysashageorge) 140 mg/mL pen injector Discontinued 140 MG SUBCUT EVERY 2 WEEKS 6 90May 2024 12:00am November 03, 2024 9:56amezetimibe 10 mg oral tablet (20 sources)Dietary Cholesterol Absorption InhibitorStart: 11-05-2023 End: 18-38-5846tkcd 1 tablet by mouth once dailyEzetimibe 10 mg tablet Discontinued 0 .ROUTE .COMPLEX 90 November 05, 2023 9:42am April 28, 2024 9:44am take 1 tablet by mouth once dailyStart: 09-05-2023 End: 44-58-6550Vcxrlawjz Discontinued MG PO September 05, 2023 12:00am September 05, 2023 1:34pmStart: 06-08-2023 End: 30-26-9709tuyh 1 tablet by mouth once dailyEzetimibe (Zetia) 10 mg tablet Discontinued 10 MG PO Daily August 26, 2024 11:00pm August 27, 2024 3:02pm Start: 05-15-2023 End: 82-09-2630tcse 1 tablet by mouth every weekEzetimibe 10 mg tablet Discontinued MG PO August 02, 2023 12:00am August 02, 2023 12:47pm Fr eeTextSi tablet Orally 2 days per week; Note: Source Status: Not-Taking\PRN; Provider: Kamla Vyas WStart: 95-01-6855dsbv 1 tablet by mouth every twenty- four hoursEzetimibe 10 MG 1 tablet Orally Once a day for 90 days Apr, Activegabapentin 100 mg oral capsule (20 sources)Anti-epileptic AgentStart: 08-02-2023 End: 55-64-2402iznd 1 capsule by mouth once dailyGabapentin 100 mg capsule Discontinued 100 MG PO Daily August 02, 2023 12:00am August 02, 2023 12:47pm FreeTextSi capsule Orally Once a day; Note: Source Status: Not- Taking\PRN; Provider:Darling Camara ( )Start: 04-16-2023 End: 32-09-0454dccx 1 capsule by mouth three times dailyGabapentin 300 mg capsule Discontinued 300 MG PO Three times daily May 07, 2023 12:00am August 02, 2023 12:47pmStart: 02-27-2019 End: 91-04-2276rasc 1 capsule by mouth three times dailygabapentin [...] injection 30 mL (1 source)Start: 12-13-2023 End: 33-29-0514hbzqnm 30 mL intravenously once30 mL, intravenous, Once in imaging, Starting on [facility] 12/13/23 at 0817, For 1 dose, Administer undiluted as rapid I.V. bolus injectionhydrOXYzine hydrochloride 25 mg oral tablet (20 sources)AntihistamineStart: 05-26-2022 End: 02-78-7447wynb 1-2 tablets by mouth at bedtime as neededHydroxyzine Hcl 25 mg tablet Discontinued MG PO August 02, 2023 12:00am September 05, 2023 12:37pm FreeTextSi-2 tablets Orally HS as needed; Note: Source Status: Taking; Provider: Darling Camara RComment on above:take 1 to 2 tablets by mouth at bedtime if neededibuprofen 800 mg oral tablet (20 sources)Nonsteroidal Anti-inflammatory DrugStart: 08-02-2023 End: 13-28-2261wcqk 1 tablet by mouth three times daily as needed for pain Ibuprofen 800 mg tablet Discontinued 800 MG PO Three times daily as needed for pain September 05, 2023 12:35pm October 06, 2024 1:06pm FreeTextSi tablet with food or milk as needed Orally Three times a day; Note: Source Status: TakingPRN; Provider: Darling Camara ( )Start: 04-17-2022 End: 57-44-0526soqe 1 tablet by mouth every eight hours as needed for pain Ibuprofen 600 mg tablet Discontinued 600 MG PO Q8H as needed for pain 20 0 April 16, 2022 11:00pm July 17, 2022 8:01amtake 1 tablet by mouth three times daily at mealtime as neededIbuprofen 800 MG 1 tablet with food or milk as needed Orally Three times a day PRN Activeindomethacin 75 mg extended release oral capsule (20 sources)Nonsteroidal Anti-inflammatory DrugStart: 08-02-2023 End: 68-95-6595uwnr 1 capsule by mouth once daily at mealtimeIndomethacin 75 mg capsule, extended release Discontinued 75 MG PO Daily August 02, 2023 12:00am August 02, 2023 12:48pm FreeTextSi capsule with food Orally Once a day; Note: Source Status: Not-Taking\PRNprn; Provider: Darling Camara ( )Start: 07-17-2022 End: 57-20-0136fwnsjittvhzj (INDOCIN) 25 mg capsule Indomethacin Active 25 MG PO Daily July 17, 2022 1:00am 07/17/2022 11/02/2023 Discontinued (Discontinued by Patient)Start: 07-17-2022 End: 18-13-5576ydmo 1 capsule by mouth once dailyIndomethacin 25 mg Capsule Discontinued 25 MG PO Daily July 17, 2022 12:00am August 02, 2023 12:48pmtake 1 capsule by mouth once daily at mealtimeindomethacin SR (Indocin SR) 75 MG ER capsule indomethacin ER 75 mg capsule,extended release take 1 capsule by mouth once daily with food 0 Activetake 1 capsule by mouth every twenty-four hoursIndomethacin ER 75 MG 1 capsule with food Orally Once a day prn ActiveKetorolac (20 sources)Nonsteroidal Anti-inflammatory Drug, Cyclooxygenase InhibitorStart: 83-80-9513Ephcikc per 15 mg Jan, 2 mLlisinopril 10 mg oral tablet (20 sources)Angiotensin Converting Enzyme InhibitorStart: 10-18-2023 End: 01-66-7918rqoa 1 tablet by mouth once dailyLisinopril 10 mg tablet Discontinued 10 MG PO Daily 90 90 1 April 01, 2024 10:02am September 29, 2024 2:11pmStart: 09-05-2023 End: 51-39-5535jfak 1 tablet by mouth once dailyLisinopril 5 mg tablet Discontinued 5 MG PO Daily 30 30 2 September 04, 2023 11:00pm October 18, 2023 8:30am take 2 tablets by mouth once dailylisinopril 5 mg tablet Take 2 tablets (10 mg) by mouth once daily. Activemeclizine hydrochloride 25 mg oral tablet (20 sources)AntiemeticStart: 04-29-2018 End: 90-85-2122rrci 1 tablet by mouth three times daily as needed for dizziness Meclizine 25 mg tablet Discontinued 25 MG PO Three times daily as needed for dizziness 30 0 April 29, 2018 12:00am April 06, 2022 3:26pm methocarbamol 750 mg oral tablet (20 sources)Muscle RelaxantStart: 05-21-2024 End: 41-84-2639pdzh 1 tablet by mouth once daily at bedtimeMethocarbamol 750 mg tablet Discontinued 750 MG PO Daily at bedtime July 03, 2024 12:00am September 20, 2024 10:05amStart: 12-03-2023 End: 22-75-8461Fpelsxxllucgp 500 mg tablet Discontinued 500 MG PO December 03, 2023 9:58am April 28, 2024 9:45amStart: 12-03-2023 End: 04-15-0464Rqstngkdokkdd Discontinued MG PO December 03, 2023 12:00am December 03, 2023 10:59ammethylPREDNISolone 4 mg oral tablet (20 sources)CorticosteroidStart: 11-25-2024 End: 77-04-3922Btazouhjiygxdaulro 4 mg tablets,dose pack Discontinued 0 PO per package directions 2024 11:00pm February 19, 2025 10:11am PO PER PKG DIRStart: 11-19-2024 End: 84-12-9624pxcf 1 tablet by mouth onceMethylprednisolone (Medrol (Slim)) 4 mg tablets,dose pack Discontinued 0 PO per package directions November 18, 2024 11:00pm February 19, 2025 10:11am PO PER PKG DIR for 6 daysStart: 08-02-2023 End: 39-36-9630Otstjnpnbxsmltmlof 4 mg tablets,dose pack Discontinued MG PO As Directed August 02, 2023 12:00am August 02, 2023 12:48pm FreeTextSig: as directed Orally as directed; Note: Source Status: Start1 pack; Refills: 0; Provider: Darling Camara RStart: 08-02-2023 End: 27-50-0944Pkkkqysbdacxrdszwo Discontinued MG PO As Directed August 02, 2023 1:00am August 02, 2023 1:48pm FreeTextSig: as directed Orally as directed; Note: Source Status: Start1 pack; Refills: 0; Provider: Darling Driver Start: 08-02-2023 End: 86-87-0467Upomwodlcknswhqvsv Discontinued MG PO As Directed August 02, 2023 12:00am August 02, 2023 12:48pm FreeTextSig: as directed Orally as directed; Note: Source Status: Start1 pack; Refills: 0; Provider: Darling Driver Start: 89-07-8984vqbvipPHLLWWRjjvdq 4 MG as directed Orally as directed 1 pack Jun, ActiveStart: 29-61-8371Htozvo 4 MG as directed Orally Feb, ActiveStart: 33-19-5147mpulxwOOHWTXRrnhzo 4 MG as directed Orally Nov, Not-TakingStart: 18-20-8399fhpgtxFHCZKZUtttwr 4 MG as directed Orally as directed Jun, Activemirtazapine 15 mg oral tablet (20 sources)Start: 09-01-2022 End: 58-27-1809onty 0.5 tablet by mouth once daily at bedtime as needed Mirtazapine 15 mg tablet Discontinued MG PO Daily at bedtime as needed September 05, 2023 12:35pm 2023 9:19am FreeTextSi/2 tablet at bedtime Orally Once a day; Note: Source Status: Taking; Provider: Darling Camara ( )Start: 09-01-2022 End: 36-89-9184oyih 1 tablet by mouth once daily at bedtime as neededMirtazapine 15 mg tablet Discontinued 15 MG PO Daily at bedtime as needed for restless leg(s) October 29, 2023 9:18am October 06, 2024 1:06pmStart: 07-17-2022 End: 20-67-3477lzmx 1 tablet by mouth at bedtime as neededMirtazapine 7.5 mg Tablet Discontinued 7.5 MG PO Bedtime as needed for Insomnia July 17, 2022 12:00am August 02, 2023 12:49pmComment on above:Take by mouth daily at bedtime.montelukast 10 mg oral tablet (20 sources)Leukotriene Receptor AntagonistStart: 07-17-2022 End: 55-48-5341wudv 1 tablet by mouth once dailyMontelukast (Singulair) 10 mg tablet Discontinued 10 MG PO Daily August 02, 2023 12:00am August 02, 2023 1:10pm FreeTextSi tablet Orally Once a day; Note: Source Status: Taking; Provider:Darling Camara ( )Comment on above:Take 10 mg by mouth daily at bedtime.naproxen 500 mg oral tablet (20 sources)Nonsteroidal Anti-inflammatory DrugStart: 12-10-2017 End: 07-77-0886dije 1 tablet by mouth twice daily at mealtimeNaproxen 500 mg tablet Discontinued 500 MG PO Twice daily December 09, 2017 11:00pm April 29, 2018 2:12pm administer with food or milk24 hr nicotine 0.875 mg/hr transdermal system (12 sources)Cholinergic Nicotinic AgonistStart: 08-14-2023 End: 11-96-2004mlnyr 1 dose transdermal route every twenty-four hoursnicotine [...] (20 sources)Angiotensin 2 Receptor BlockerStart: 05-07-2023 End: 45-67-3282Iatfnlnxuz 20 mg tablet Discontinued MG May 07, 2023 12:00am August 02, 2023 12:50pmStart: 05-07-2023 End: 86-33-7877Kcwlxtxllu Discontinued MG TABLET May 07, 2023 1:00am August 02, 2023 1:50pmondansetron 4 mg disintegrating oral tablet (14 sources)Serotonin-3 Receptor AntagonistStart: 10-06-2024 End: 82-04-2488jsjy 1 tablet by mouth every eight hours as needed for nausea and vomitingOndansetron 4 mg tablet,disintegrating Discontinued 4 MG PO Every 8 hours as needed for nausea and vomiting 9 3 0 October 05, 2024 11:00pm October 24, 2024 10:48amStart: 94-63-9167xeaq 1 tablet by mouth every eight hours as needed ondansetron (Zofran) tablet 4 mgoxygen (O2) therapy (1 source)Start: 04-09-2024 End: 91-13-6052jpsgonnfrf, Continuous - Inhalation, First dose on Sun04/09/24 at 1715, Recovery (only), Device: Nasal Cannula, Rate in liters per minute: Other, Custom Value: 1-6 LPM, Keep O2 Sat Above: 92%pravastatin sodium 40 mg oral tablet (20 sources)HMG-CoA Reductase InhibitorStart: 11-05-2023 End: 95-66-9416apnw 1 tablet by mouth once dailyPravastatin 40 mg tablet Discontinued 0 .ROUTE .COMPLEX 90 1 August 27, 2024 3:02pm October 06, 2024 1:06pm take 1 tablet by mouth once dailyStart: 07-06-2023 End: 12-37-4368jmyq 1 tablet by mouth once dailyPravastatin 40 mg tablet Discontinued 40 MG PO Daily October 28, 2023 11:00pm November 05, 2023 9:42amStart: 31-61-0887jcup 1 tablet by mouth every twenty-four hoursPravastatin Sodium 40 MG 1 tablet Orally Once a day for 90 days Apr, ActivepredniSONE 10 mg oral tablet (20 sources)Start: 03-21-2023 End: 83-89-3330Rlbknkpbah 10 mg tablet Discontinued 60 MG PO Daily 30 March 20, 2023 11:00pm May 07, 2023 8:24am administer with food or milkStart: 03-21-2023 End: 84-51-8790cayn 60 mg by mouth once daily at mealtimePrednisone Discontinued 60 MG PO Daily March 21, 2023 12:00am May 07, 2023 9:24am admin ister with food or milkStart: 04-06-2022 End: 95-36-4738ziiy 2 tablets by mouth once daily at mealtimePrednisone 20 mg tablet Discontinued 40 MG PO Daily April 05, 2022 11:00pm July 17, 2022 8:01am administer with food or milkStart: 04-06-2022 End: 60-15-7748pzjb 40 mg by mouth once daily at mealtimePrednisone Discontinued 40 MG PO Daily April 06, 2022 12:00am July 17, 2022 9:01am admin ister with food or milkpregabalin 50 mg oral capsule (20 sources)Start: 06-30-2024 End: 67-32-2924iqqn 1 capsule by mouth once dailyPregabalin 50 mg capsule Discontinued 50 MG PO Daily July 03, 2024 12:00am September 20, 2024 10:05am Start: 06-30-2024 End: 40-78-8113hjwk 1 capsule by mouth twice dailypregabalin (Lyrica) 50 mg capsule Indications: Status post cervical spinal fusion Take 1 capsule (50 mg) by mouth 2 times a day. 60 capsule 06/30/2024 Activepromethazine hydrochloride 25 mg oral tablet (20 sources)PhenothiazineStart: 04-29-2018 End: 40-80-7179lmsm 1 tablet by mouth every six hours as needed for nausea Promethazine 25 mg Tablet Discontinued 25 MG PO Q6H as needed for Nausea September 07, 2021 11:00pm April 06, 2022 3:26pmtake 1 tablet by mouth every twelve hoursPromethazine HCl 25 MG 1 tablet as needed Orally every 12 hrs Active rimegepant 75 mg disintegrating oral tablet (20 sources)Start: 04-06-2022 End: 80-93-1833Yignfhcnkm (Nurtec Odt) 75 mg tablet,disintegrating Discontinued 75 MG PO Q48H April 05, 2022 11:00pm July 17, 2022 8:02amtake 1 tablet by mouth once dailyNurtec 75 MG 1 tablet on the tongue and allow to dissolve Orally Ever Other Day Activerosuvastatin calcium 5 mg oral tablet (20 sources)HMG-CoA Reductase InhibitorStart: 89-95-9892atvk 1 tablet by mouth once dailyrosuvastatin (Crestor) 5 MG tablet Take 5 mg by mouth Daily 06/27/2023 ActiveStart: 05-31-2023 End: 36-92-9394pdnh 1 tablet by mouth every weekRosuvastatin 5 mg tablet Discontinued 5 MG PO August 02, 2023 12:00am August 02, 2023 1:10pm FreeTextSi tablet Orally 2 days per week; Note: Source Status: Not- Taking\PRN; Refills: 1; Provider: Darling Camara RSUMAtriptan 100 mg oral tablet (8 sources)Serotonin-1b and Serotonin-1d Receptor Agonisttake 1 tablet by mouth every two hours as needed, then take 1 tablet by mouth twice daily as needed Imitrex 100 MG 1 tablet at least 2 hours between doses as needed Orally Twice a day Not-Takingterbinafine hydrochloride 10 mg/ml topical cream (20 sources)Allylamine AntifungalStart: 12-03-2023 End: 12-66-2528Mrlgjphuenw Hcl 1 % cream Discontinued APPLIC TOPICAL December 02, 2023 11:00pm September 20, 2024 10:05amStart: 00-79-1176Ptoimnzmvnn Hcl Active APPLIC TOPICAL December 03, 2023 12:00amStart: 76-29-9752mgukjzpsmaw (LamISIL AT) 1 % cream Indications: Tinea manuum Apply to the affected area on the hand, bid, 30 day supply 42 g 1 11/28/2023 Activetopiramate 100 mg oral tablet (1 source)take 1 tablet by mouth every twenty-four hoursTopamax 100 MG 1 tablet Orally Once a day Not-TakingToradol 30 mg/ml (20 sources)Start: 79-61-2076Wwpeqto 30 mg/ml Jun, 60 mgStart: 61-73-7286Zrvbtuo 30 mg/ml Aug, 60 mgTriamcinolone (20 sources)CorticosteroidStart: 03-64-1383UDQHEHQ - 10 mg Jan, 1.5 cc24 hr divalproex sodium 250 mg extended release oral tablet (20 sources)Mood Stabilizer, Anti-epileptic AgentStart: 53-80-2105hlfr 1 tablet by mouth once dailydivalproex ER (DEPAKOTE ER) 250 mg 24 hr tablet Take 250 mg by mouth once daily. 0 09/28/2021 ActiveStart: 13-92-4269thyh 1 tablet by mouth every twenty-four hoursDivalproex Sodium ER 250 MG Oral Tablet Extended Release 24 Hour Quantity: 90 Refills: 0 Ordered: 28-Sep-2021 DO Start : 28-Sep-2021 ActiveComment on above:Take 250 mg by mouth once daily.vortioxetine 5 mg oral tablet (4 sources)Start: 09-12-2021 End: 25-28-5087gjhn 1 tablet by mouth every twenty-four hoursvortioxetine (TRINTELLIX) 5 mg tablet Take by mouth every 24 hours. 09/12/2021 11/03/2024 DiscontinuedStart: 91-85-9995tlpf 1 tablet by mouth every twenty-four hours Trintellix 5 MG 1 tablet Orally Once a day for 30 day(s) Samples Aug, Activezonisamide 25 mg oral capsule (9 sources)Anti-epileptic AgentStart: 10-18-2022 End: 33-56-8470vkjauvljni (ZONEGRAN) 25 mg capsule take 1 capsule [...] (20 sources)Abdominal pain; Translations: [Unspecified abdominal pain]Onset: 222016-49-1489MpqreofyTvzfecyu reactions (20 sources)Eczema; Translations: [Dermatitis, unspecified]EpisodicAnxiety disorders (20 sources)Anxiety; Translations: [Anxiety state, unspecified]Onset: 04-14-2021 Resolved: 50-00-2955QakzoyvLzgupa of brain and nervous system (20 sources)Glial tumor of brain; 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, unspecified]Onset: 10-13-2021 Resolved: 93-37-9861ZewjvlxAwmppd of head and neck (20 sources)Squamous cell carcinoma of head and neck; 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 of head, face and neck]Onset: 14-16-2683TcxiegeBcsdic of head and neck (20 sources)History of malignant neoplasm of head and/or neck; Translations: [Personal history of malignant neoplasm of unspecified site of lip, oral cavity, and pharynx]Onset: 243518-26-7249BkrqwhauRserlg; other and unspecified primary (3 sources)History of squamous cell carcinoma; Translations: [Personal history of malignant neoplasm of other sites]EpisodicCardiac dysrhythmias (20 sources)Cardiac arrhythmia; Translations: [Cardiac arrhythmia, unspecified] Onset: 07-76-2346EbfqzwrVyzsnzrk (20 sources)Age-related nuclear cataract of right eye; Translations: [Age- related nuclear cataract, right eye]Onset: 220252-65-0666AwcdvejUaszkdcgmk associated with dizziness or vertigo (20 sources)Lightheadedness; Translations: [Dizziness and giddiness]Onset: 34-73-4407PlwcicfrKjaqecdepd disorders (20 sources)First degree atrioventricular block; Translations: [Atrioventricular block, first degree]Onset: 228215-88-2527VadhiukOhxgmfzs atherosclerosis and other heart disease (20 sources)Coronary arteriosclerosis; Translations: [Atherosclerotic heart disease of [place] coronary artery without angina pectoris]Onset: 02-26-2024 11-10-7831YisejvmBhsbxkloa of lipid metabolism (20 sources)Hyperlipidemia; Translations: [Hyperlipidemia, unspecified]Onset: 09-19-2021 Resolved: 51-24-7857BqympcyVcccbovfok disorders (9 sources)Gastroesophageal reflux disease; Translations: [Gastro-esophageal reflux disease without esophagitis]98-54-5865LhmktqnNvutlnxvj hypertension (20 sources)Essential hypertension; Translations: [Essential (primary) hypertension]Onset: 88-54-4570BtdnpseCzqaj and electrolyte disorders (13 sources)Dehydration; Translations: [Dehydration]98-79-1633BxzicbrfRasersfq (20 sources)Preglaucoma, unspecified, right eye; Translations: [Preglaucoma, unspecified]Onset: 771442-38-4529RtibilmZizrjdqe; including migraine (20 sources)Migraine; Translations: [Migraine, unspecified, not intractable, without status migrainosus]Onset: 69-88-8917NtfohdtNcrpkywl; including migraine (20 sources)Headache; Translations: [Headache]EpisodicLymphadenitis (1 source)Enlarged lymph nodes, unspecifiedEpisodicMalignant neoplasm without specification of site (20 sources)Primary malignant neoplasm; Translations: [Malignant (primary) neoplasm, unspecified]Onset: 821024-88-9897MtaxmgzYvoy disorders (3 sources)Depressive disorder; Translations: [Depressive disorder, not elsewhere classified]ChronicOsteoarthritis (20 sources)Arthritis; Translations: [Unspecified osteoarthritis, unspecified site]Onset: 986438-10-9986MsdhoalQoufukfdjxuk (20 sources)Senile osteoporosis; Translations: [Age-related osteoporosis without current pathological fracture]Onset: 507208-47-1134KsvincfYbjjl and unspecified benign neoplasm (2 sources)Acoustic neuroma; Translations: [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Other and unspecified benign neoplasm (2 sources)Melanocytic nevus of trunk; Translations: [Melanocytic nevi of trunk] 17-41-4657JtrrjunvBurhe and unspecified benign neoplasm (11 sources)Polyp of colon; Translations: [Polyp of colon]35-50-6545Mlruzpoq Other circulatory disease (1 source)Presence of other vascular implants and graftsChronicOther circulatory disease (4 sources)Elevated blood-pressure reading, without diagnosis of hypertension Onset: 12-26-2021 Resolved: 85-46-7452LoekupkgYaqxt circulatory disease (15 sources)Elevated blood pressure; Translations: [Elevated blood-pressure reading, without diagnosis of hypertension]EpisodicOther circulatory disease (1 source)Other specified symptoms and signs involving the circulatory and respiratory systemsEpisodicOther circulatory disease (2 sources)Spider nevus; Translations: [Nevus, non-neoplastic]01-54-3694Ialribvk Other connective tissue disease (3 sources)History of cervical spine fusion; Translations: [Arthrodesis status] 96-15-2175RbgqbiizYofsl connective tissue disease (1 source)Muscle spasm of cervical muscle of neck; Translations: [Other muscle spasm]90-34-0133DbwqiqkbPkebc ear and sense organ disorders (16 sources)Otalgia, left ear; Translations: [Left ear pain]EpisodicOther ear and sense organ disorders (11 sources)Bilateral tinnitus; Translations: [Tinnitus, bilateral]EpisodicOther ear and sense organ disorders (1 source)Tinnitus, bilateralEpisodicOther gastrointestinal disorders (9 sources)Altered bowel function; Translations: [Change in bowel habit] 85-76-5943QpggeypsLwtkm gastrointestinal disorders (9 sources)Dysphagia; Translations: [Dysphagia, unspecified]44-77-7236Qhdvpwbd Other gastrointestinal disorders (9 sources)Diarrhea; Translations: [Diarrhea, unspecified]31-11-6552Aqmpvkym Other gastrointestinal disorders (6 sources)Change in bowel habit; Translations: [Other symptoms involving digestive system]56-07-1301OgmjcfuxJfvwj gastrointestinal disorders (6 sources)Dysphagia, unspecified; Translations: [Dysphagia, unspecified] 18-50-4010PtznkhypPpgmq hereditary and degenerative nervous system conditions (20 sources)Isolated cervical dystonia; Translations: [Spasmodic torticollis] Onset: 299484-40-7776UvihlhyWfsjc infections; including parasitic (20 sources)Personal history of other infectious and parasitic diseases; Translations: [History of COVID-19]11-57-8189SootaijlZbeam lower respiratory disease (20 sources)Solitary nodule of lung; Translations: [Solitary pulmonary nodule] EpisodicOther lower respiratory disease (20 sources)Productive cough ; Translations: [Productive cough]Onset: 10-16-2023 16-12-0675OxkdvjmfSylpy nervous system disorders (3 sources)Demyelinating disease of central nervous system; Translations: [Other demyelinating diseases of central nervous system]ChronicOther nervous system disorders (20 sources)Mass lesion of brain; Translations: [Other specified disorders of brain]Onset: 624091-61-4085RjecnxtVmtqs nervous system disorders (5 sources)Disorder of brain, unspecifiedOnset: 10-24-2021 Resolved: 86-19-9614BdxcgzdGmyac nervous system disorders (2 sources)Raised intracranial pressure; Translations: [Benign intracranial hypertension]ChronicOther nervous system disorders (1 source)Benign intracranial hypertensionChronicOther nervous system disorders (1 source)Normal pressure hydrocephalus; Translations: [(Idiopathic) normal pressure hydrocephalus]ChronicOther nervous system disorders (1 source)(Idiopathic) normal pressure hydrocephalus; Translations: [NPH (normal pressure hydrocephalus) (HCC)]Onset: 55-11-2978BadtbpwMbald nervous system disorders (20 sources)Brachial plexus disorder; Translations: [Brachial plexus disorders] Onset: 335666-65-5155ZnabkvkKlbqk nervous system disorders (20 sources)Ulnar neuropathy; Translations: [Lesion of ulnar nerve, unspecified upper limb]Onset: 280707-75-8799ShypzbyOvwoh nervous system disorders (1 source)Lesion of brainstem; Translations: [Disorder of brain, unspecified] 06-51-7058CvkprfeUasoe nervous system disorders (4 sources)Other specified disorders of brain; Translations: [Other conditions of brain]11-94-6625UqstpkyNjrnr nervous system disorders (20 sources)Central pontine myelinolysis; 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]Onset: 825759-54-0344TtqxomxCwllc nervous system disorders (20 sources)Disorder of nerve root and/or plexus; Translations: [Other nerve root and plexus disorders]Onset: 364373-82-7857RhswxfpRuncn nervous system disorders (6 sources)Finding of sensation of upper limb; Translations: [Paresthesia of skin]EpisodicOther nervous system disorders (20 sources)Paresthesia of left lower limb; Translations: [Paresthesia of skin] Onset: 792774-23-1437BqqnptedBopqs nervous system disorders (2 sources)Anesthesia of skinOnset: 01-30-2022 Resolved: 51-90-0695EjeadlegVgrse nervous system disorders (20 sources)Burning sensation; Translations: [Other disturbances of skin sensation]Onset: 338166-36-8958JwthfvvuXbatd nervous system disorders (1 source)Other disturbances of skin sensationEpisodicOther nervous system disorders (20 sources)Impairment of balance; Translations: [Other abnormalities of gait and mobility]Onset: 627277-85-0644ZjiugudlAqojx nervous system disorders (6 sources)Other abnormalities of gait and mobility; Translations: [Other symptoms involving nervous and musculoskeletal systems]EpisodicOther nervous system disorders (1 source)Acute postoperative pain; Translations: [Other acute postprocedural pain]02-29-7983EzpimkcxJhepb non-epithelial cancer of skin (20 sources)Squamous cell carcinoma of skin; Translations: [Squamous cell carcinoma of skin, unspecified]28-96-3455UkljxousRmhskns on above:head/neckOther non-traumatic joint disorders (20 sources)Joint pain; Translations: [Pain in unspecified joint]08-02-2023 EpisodicOther non-traumatic joint disorders (1 source)Pain in unspecified jointEpisodicOther non-traumatic joint disorders (2 sources)Pain in right shoulder; Translations: [Pain in joint, shoulder region]52-52-2252EcfthgosTemlz nutritional; endocrine; and metabolic disorders (3 sources)Weight loss; Translations: [Loss of weight]EpisodicOther nutritional; endocrine; and metabolic disorders (3 sources)H/O: metabolic disorder; Translations: [Personal history of other endocrine, metabolic, and immunity disorders]EpisodicOther nutritional; endocrine; and metabolic disorders (8 sources)Unexplained weight loss ; Translations: [Abnormal weight loss] 75-83-8570StndlibaEprfh nutritional; endocrine; and metabolic disorders (3 sources)Abnormal weight loss; Translations: [Loss of weight]10-10-2024 EpisodicOther screening for suspected conditions (not mental disorders or infectious disease) (20 sources)Encounter for screening for malignant neoplasm of prostate; Translations: [Magnetic resonance imaging of brain abnormal]Onset: 09-19-2021 Resolved: 21-85-7613AwdvzglsLywlo skin disorders (20 sources)Mass of neck; Translations: [Localized swelling, mass and lump, neck]EpisodicOther skin disorders (20 sources)Vesicular eczema; 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]]Onset: 564225-75-9581SfiaiuchXmiai skin disorders (1 source)Dyshidrosis [pompholyx]EpisodicOther skin disorders (1 source)Finding of neck region; Translations: [Localized swelling, mass and lump, neck]35-56-5148ZebxmpsyLojxp skin disorders (2 sources)Seborrheic keratosis; Translations: [Other seborrheic keratosis] 39-21-1197NzwpbimkZmrrk skin disorders (2 sources)Inflamed seborrheic keratosis; Translations: [Inflamed seborrheic keratosis]27-36-4300VczzlojxUiosa skin disorders (2 sources)Actinic keratosis; Translations: [Actinic keratosis]01-08-2025 EpisodicOther upper respiratory disease (3 sources)Other specified disorders of nose and nasal sinusesOnset: 06-29-2021 Resolved: 48-07-6259PfbrlliaXclfn upper respiratory disease (4 sources)Nasal sinus problem; Translations: [Other specified disorders of nose and nasal sinuses]EpisodicOther upper respiratory infections (13 sources)Sinusitis; Translations: [Chronic sinusitis, unspecified]Onset: 06-30-2021 Resolved: 34-42-7439CpyoswrSruhj upper respiratory infections (20 sources)Acute pharyngitis, unspecified; Translations: [Acute sinusitis] Onset: 31-74-3871ShppvswtDxfrrd media and related conditions (20 sources)Acute transudative otitis media; Translations: [Other acute nonsuppurative otitis media, left ear]Onset: 627585-04-8351Xovmfjtv Peripheral and visceral atherosclerosis (20 sources)Intermittent claudication; Translations: [Peripheral vascular disease, unspecified]Onset: 92-57-9008PaabcgnZomeoltoj (except that caused by tuberculosis or sexually transmitted disease) (14 sources)Pneumonia; Translations: [Pneumonia, unspecified organism]09-20-2024 EpisodicResidual codes; unclassified (5 sources)Postprocedural state finding; Translations: [Presence of other specified functional implants]61-84-8741GleyfxhBnxxhhmo codes; unclassified (20 sources)Insomnia; Translations: [Insomnia, unspecified]Onset: 12-10-2022 99-08-9411BwgjmdrvAwbyqtzb codes; unclassified (2 sources)Insomnia, unspecifiedEpisodicResidual codes; unclassified (20 sources)History of cervical discectomy; Translations: [Other specified postprocedural states]29-52-5658DddyubqpFbwdtuqu codes; unclassified (4 sources)Other specified postprocedural states; Translations: [Other postprocedural status]18-29-8268MujwqtblPdoclwom codes; unclassified (8 sources)Early satiety; Translations: [Early satiety]42-73-7590Rwhlcrzz Residual codes; unclassified (3 sources)Early satiety; Translations: [Early satiety]25-54-0473Zdsbdeee Secondary malignancies (3 sources)Metastasis to head and neck lymph node; Translations: [Secondary and unspecified malignant neoplasmof lymph nodes of head, face, and neck]Chronic Secondary malignancies (2 sources)Secondary malignant neoplastic disease; Translations: [Other malignant neoplasm without specification of site]ChronicSecondary malignancies (20 sources)Secondary malignant neoplasm of lymph node; Translations: [Secondary and unspecified malignant neoplasm of lymph node, unspecified]Onset: 12-10-2022 97-13-1200SlfgzviVftwghekxuj; intervertebral disc disorders; other back problems (20 sources)Cervical spondylosis; Translations: [Spondylosis without myelopathy or radiculopathy, cervical region]Onset: 59-62-2195GxjznzdKfkjsosyaod; intervertebral disc disorders; other back problems (20 sources)Neck pain; Translations: [Cervicalgia]Onset: 12-05-2021 Resolved: 22-05-2955FwurmdliFvfvsmsmu-related disorders (20 sources)Nicotine dependence with current use; Translations: [Nicotine dependence, unspecified, uncomplicated]Onset: 04-14-2021 Resolved: 48-03-8156CvhfrbuFifcozf disorders (3 sources)Thyroid nodule; 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 Transient cerebral ischemia (20 sources)Transient cerebral ischemia; Translations: [Transient cerebral ischemic attack, unspecified]ChronicUnclassified (9 sources)Patient has spine surgeryOnset: 962803-71-1446Dooavmavpwkp (3 sources)History of cervical spine -77-6007Jyngnmuyvzhc (2 sources)Post-op Spine Surgery; Translations: [Post-op Spine Surgery]Onset: 38-66-1904Urpfq infection (16 sources)Respiratory syncytial virus infection; Translations: [Other specified viral diseases]Onset: 59-40-5885Frqdanzo Past or Other Problems Problem ClassificationProblemDateDocumented DateEpisodic/ChronicBlindness and vision defects (20 sources)Unspecified visual disturbance; Translations: [Visual disturbance] Onset: 01-30-2022 Resolved: 59-34-4713NjcqveuuSykdkyctqurs (except that caused by tuberculosis or sexually transmitted disease) (20 sources)Myelitis; Translations: [Myelitis, unspecified]Onset: 08-29-2023 02-03-1178YlwoqqtePjlccnfh; including migraine (3 sources)Headache; including migraineOnset: 11-01-2021 Resolved: 89-82-3251Ihkasjg and fatigue (20 sources)Asthenia; Translations: [Weakness]Onset: 799449-74-8463 EpisodicOther and unspecified benign neoplasm (20 sources)Schwannoma; Translations: [Benign neoplasm of peripheral nerves and autonomic nervous system, unspecified]Onset: 204641-81-1267KkalblnfCgbfu connective tissue disease (20 sources)Muscle pain; Translations: [Myalgia, unspecified site]Onset: 037958-89-0514NgzkyancFvdzk connective tissue disease (20 sources)Pain in left arm; Translations: [Pain in left arm]Onset: 12-29-2022 15-12-8004NcqjtqztAvurp connective tissue disease (20 sources)Spasm of cervical paraspinous muscle; Translations: [Other muscle spasm]Onset: 685580-45-7144ByneszbqUjewh connective tissue disease (20 sources)Radicular pain; Translations: [Neuralgia and neuritis, unspecified] Onset: 724513-82-1647MkvuezqeBqama connective tissue disease (2 sources)Arthrodesis status; Translations: [Arthrodesis status]Onset: 43-72-4953UuskwckwXxtzy connective tissue disease (2 sources)Other muscle spasm; Translations: [Other muscle spasm]Onset: 28-15-1526EicjbdrqEqspc gastrointestinal disorders (7 sources)Diarrhea, unspecified; Translations: [Diarrhea]Onset: 11-05-2024 00-66-2909OhokksasMlzhd lower respiratory disease (20 sources)Multiple nodules of lung; Translations: [Other nonspecific abnormal finding of lung field]Onset: 65-86-7612GwdugygrQtern lower respiratory disease (1 source)Shortness of breath; Translations: [Shortness of breath]Onset: 40-66-0545ChwcdpaaNdlgp nervous system disorders (20 sources)Skin sensation disturbance; Translations: [Anesthesia of skin]Onset: 447754-88-5896HixkxfxgNbxvm nervous system disorders (2 sources)Other acute postprocedural pain; Translations: [Other acute postprocedural pain]Onset: 52-98-3222CfnhspzfBcigd non-traumatic joint disorders (20 sources)Pain in left shoulder; Translations: [Pain in joint, shoulder region]Onset: 60-06-4753SrkrgipgCqqbp upper respiratory disease (1 source)Nasal congestionOnset: 04-19-2021 Resolved: 30-59-7571JpeeidtrJqkwbvqr codes; unclassified (1 source)Other general symptoms and signsOnset: 01-30-2022 Resolved: 00-85-2241XmcvxvlcTlxasutmxvlb (1 source)Pressure in head R51.9Onset: 12-26-2021 Resolved: 65-68-5641Ccsgdzakdxgy (1 source)Cough R05.9Unclassified (1 source)Acute cough R05.1Unclassified (14 sources)Onset: 10-05-2023 Resolved: 09-15-108818463092-68-4533 Results Test NameValueInterpretationReference EbnydKrdsllts32gc 45-23-025149Dpyrhen returned phone call. Scheduled surgery for 06/03/25 and scheduled the pre op and post op appt.[facility]36Called and left message for patient to call back to discuss surgery date. Could have surgery on 06/03. Will need a pre op and post op appt scheduled as well. [address] [phone] would like NOÉ Bose to give him a call back [facility]qiPtmljdakceTr[facility]36Patient called and left display card writer a message stating that his delivery nurse would be sending over the clearance for the blood thinners. Will be on the lookout in faxes for this.[address] [phone] and spoke to Dr Harvey's office. She did voice that they do not give out surgical clearances and would be faxing over the note and their policy regarding the refusal.[address] call [address] Harvey's office on Sunday as office is currently closed.[address] [phone] called into the office requesting to speak with Lidya. Patient was advised Lidya is currently in clinic and will follow up as she has time. Overedger did read the information below to patient and patient verbalized understanding that currently we are going to request documents from delivery nurse, dr. Figueroa will review records and follow up once reviewed.[address] [phone], if the delivery nurse who prescribes this ASA and plavix will not make recommendations on holding these agents or perioperative risk statificaiton, I will need a copy of notes from his office regarding prior cardiac care and catheterization / stenting. Before I can accept responsibility for holding his perioperative cardiac care for a surgery, I will have to review his cardiac records and I would like a copy of the policy from his delivery nurse stating that they refuse to make recommendations. We can send a request for records and for a copy of the policy to Dr. Harvey's office.[facility]36Patient called in stating that Dr Harvey who prescribes his blood thinners does not do clearances anymore per his policy and that it is under the decision of the surgeon for the blood thinners. Patient states he would try asking his PCP if they would do a clearance for the blood thinners.[facility]36on [phone] faxed to Dr. [facility]W CONTRon 29-98[place] [address] Magnetic Resonance Report Signed Patient: SHANTEL MELENDEZ MR#: [id number] : 1960 Acct:[id number] Age/Sex: 64 / M ADM Date: 04/03/25 Loc: LAB Attending Dr: OZIEL CADENA Ordering Physician: OZIEL CADENA Date of Service: 04/03/25 Procedure(s): MR head/brain wo/w con Accession Number(s): [id number] cc: OZIEL CADENA ; GRISELDA KRAUSE [place] [id number] Patient Name: SHANTEL MELENDEZ MRN: [id number] date: 1960 Sex: M Assigned Patient Location: LAB Current Patient Location: Accession/Order Number: [id number] Exam Date: 04/03/2025 13:45 Report Date: 04/07/2025 15:50 At the request of: OZIEL CADENA Procedure: MR head/brain wo/w con MRI BRAIN WITHOUT AND WITH INTRAVENOUS CONTRAST CLINICAL DATA: Neoplasm of brain COMPARISON: MRI brain 10/05/2021, CT head 07/14/2022 FINDINGS: No restricted diffusion. Mild central involutional changes. Mild periventricular subcortical T2 prolongation identified just of chronic small vessel ischemic disease. No shift midline structure basal cisterns are patent. Redemonstration of moderate relatively confluent T2 signal involving the right VANESSA jose crossing the midline into the left jose and into the facial colliculus. Relative sparing of cortical spinal tracts noted. No masslike enlargement of the jose noted. Similar appearance of the of T2 signal noted. No pathologic enhancement identified. No additional focus of abnormal enhancement identified elsewhere. MR/MR head/brain wo/w con IMPRESSION: Stable confluent T2 signal involving the jose predominantly right-sided. It is conceivable these T2 signal changes may represent the sequelae of prior radiation therapy, correlate with prior head and neck radiation treatment planning.. Sequela of demyelination or possible low-grade glial tumor may be considered although thought less likely given the overall stability and nonmasslike appearance. Otherwise stable chronic microvascular disease without evidence of acute stroke or acute intracranial process by MRI. Impression dictated by: Gee Hutchins M.D. 04/07/2025 3:50 PM Dictation Location: [place] [address] Electronically authenticated by: [id number] Date: 04/07/2025 15:50 Dictated By: Gee Hutchins M.D. Signed By: 04/07/25 155 DD/ 49 TD/TT: Housefellow:TBHRadiology, Radiologist, - 04/27/[address] [address] Magnetic Resonance Report Signed Patient: SHANTEL MELENDEZ MR#: [id number] : 1960 Acct:[id number] Age/Sex: 64 / M ADM Date: 04/03/25 Loc: LAB Attending Dr: OZIEL CADENA Ordering Physician: OZIEL CADENA Date of Service: 04/03/25 Procedure(s): MR head/brain wo/w con Accession Number(s): [id number] cc: OZIEL CADENA ; GRISELDA KRAUSE The [address] [address] Patient Name: SHANTEL MELENDEZ MRN: [id number] date: 1960 Sex: M Assigned Patient Location: LAB Current Patient Location: Accession/Order Number: [id number] Exam Date: 04/03/2025 13:45 Report Date: 04/07/2025 15:50 At the request of: OZIEL CADENA Procedure: MR head/brain wo/w con MRI BRAIN WITHOUT AND WITH INTRAVENOUS CONTRAST CLINICAL DATA: Neoplasm of brain COMPARISON: MRI brain 10/05/2021, CT head 07/14/2022 FINDINGS: No restricted diffusion. Mild central involutional changes. Mild periventricular subcortical T2 prolongation identified just of chronic small vessel ischemic disease. No shift midline structure basal cisterns are patent. Redemonstration of moderate relatively confluent T2 signal involving the right VANESSA jose crossing the midline into the left jose and into the facial colliculus. Relative sparing of cortical spinal tracts noted. No masslike enlargement of the jose noted. Similar appearance of the of T2 signal noted. No pathologic enhancement identified. No additional focus of abnormal enhancement identified elsewhere. MR/MR head/brain wo/w con IMPRESSION: Stable confluent T2 signal involving the jose predominantly right-sided. It is conceivable these T2 signal changes may represent the sequelae of prior radiation therapy, correlate with prior head and neck radiation treatment planning.. Sequela of demyelination or possible low-grade glial tumor may be considered although thought less likely given the overall stability and nonmasslike appearance. Otherwise stable chronic microvascular disease without evidence of acute stroke or acute intracranial process by MRI. Impression dictated by: Gee Hutchins M.D. 04/07/2025 3:50 PM Dictation Location: [place] [address] Electronically authenticated by: [id number] Y Date: 04/07/2025 15:50 Dictated By: Gee Hutchins M.D. Signed By: 04/07/25 1553 DD/ 155 TD/TT: Housefellow: TRENT HealthcareRadiology Study observation (narrative)[facility] HospitalI HEAD/BRAIN WO/W CONTROrdered By: Radiologist Radiology on 28-62-9390TXIY [employer] Work Phone: [phone] [phone] called in and stated his blood thinner holding directions needs to come from his Vascular doctor in [place] - Dr. Harvey ph [phone] [facility] DaytonTelephoneon [id number] MelendezShantel 1960 M Date Provider Department Center 04/06/2025 PAIGE HIGGINBOTHAM [facility] SURG Second Fl Family History Problem Relation Age of Onset Heart disease Mother Cancer Father Stroke Paternal Grandfather Family Status - Relation Status Age at Mother Alive Father Alive Paternal Grandfather AliveNormalUniversSelect Medical Specialty Hospital - YoungstownBasophils Auto (Bld) [#/Vol]Ordered By: Griselda Krause on 52-92-8732Yzsnocsky (Bld) [#/Vol]0.1 10 3/uL0.0-0.1FUniversity Hospitals Geauga Medical CenterBasophils/100 WBC Auto (Bld) Ordered By: Griselda Krause on 14-89-5250Ryxbbwbtv/100 WBC (Bld)1.0 %0.2-2.0[facility] Medical CenterCholesterol in LDL Calc [Mass/Vol]Ordered By: Griselda Krause on 92-94-5161Bxpkqggosxj in LDL [Mass/Vol]26.4 mg/dLUniversity Hospitals Lake West Medical CenterComment on above:<100 mg/dl ECXNJRR860-668 mg/dl NEAR OR ABOVE KBABFRK869- 159 mg/dl BORDERLINE AOQZ937-189 mg/dl HIGH>190 mg/dl VERY HIGHCholesterol in VLDL Calc [Mass/Vol]Ordered By: Griselda Krause on 82-23-0796Gyvlxktgswp in VLDL [Mass/Vol]15.6 mg/dLUniversity Hospitals Lake West Medical CenterEosinophils/100 WBC Auto (Bld)Ordered By: Griselda Krause on 64-36-8499Yabgtdbuoix/100 WBC (Bld)1.0 %0.9-7.0 [facility] Medical CenterErythrocyte distribution width Auto (RBC) [Ratio]Ordered By: Griselda Krause on 64-52-4401Pajalmjqvcn distribution width (RBC) [Ratio]13.6 %11.0-15.0[facility] Medical CenterGlobulin Calc (S) [Mass/Vol]Ordered By: Griselda Krause on 23-83-5616Dyjjbzgx (S) [Mass/Vol]2.4 g/dL [facility] Medical CenterGlomerular filtration rate (GFR) estimation in non- AmericanOrdered By: Griselda Krause on 03-24-5448KNX/1.73 sq M.predicted among non-blacks MDRD (S/P/Bld) [Vol rate/Area]mL/min/{1.73_m2}>=60 mL/min/1.73m 2FUniversity Hospitals Geauga Medical CenterHematocrit Auto (Bld) [Volume fraction]Ordered By: Griselda Krause on 94-28-9935Gwvbaingmk (Bld) [Volume fraction]41.7 %Low42.0-54.0 [facility] CenterHemoglobin [Mass/volume] in BloodOrdered By: Griselda Krause on 92-17-9515Kefqescgjs (Bld) [Mass/Vol]14.1 g/dL14.0-18.0[facility] Medical CenterLaboratory - Chemistry and Chemistry - challengeOrdered By: Griselda Krause on 47-00-6473Aepzzub [Mass/Vol]2.9 g/dLLow3.4-5.0[facility] Medical CenterALP [Catalytic activity/Vol]70 U/J06-018CmkgajiitUniversity Hospitals Lake West Medical CenterALT [Catalytic activity/Vol]38 U/R64-90PcvmonxpxUniversity Hospitals Lake West Medical CenterAST [Catalytic activity/Vol]17 U/G94-18RsuazwjdvUniversity Hospitals Lake West Medical CenterBilirubin [Mass/Vol]0.7 mg/dL0.2-1.0[facility] Calcium [Mass/Vol]8.6 mg/dL8.5-10.1FUniversity Hospitals Geauga Medical CenterChloride [Moles/Vol]107 mmol/Y59-535YfemgjpoaUniversity Hospitals Lake West Medical CenterCholesterol [Mass/Vol]96 mg/dL<=200[facility] CenterCholesterol in HDL [Mass/Vol]54 mg/hX73-60MplzxkkojUniversity Hospitals Lake West Medical CenterComment on above:> or =60 mg/dl - LOW CARDIOVASCULAR RISK<40 mg/dl - HIGH CARDIOVASCULAR RISKCO2 [Moles/Vol]28.2 mmol/L21.0-32.0[facility] CenterCreatinine [Mass/Vol]0.89 mg/dL0.70-1.30[facility] Medical CenterGFR/1.73 sq M.predicted MDRD (S/P/Bld) [Vol rate/Area]mL/min/{1.73_m2}>=60 mL/min/1.73m 2 [facility] Medical CenterGlucose [Mass/Vol]83 mg/eD87-629NxznruebqUniversity Hospitals Lake West Medical CenterPotassium [Moles/Vol]4.1 mmol/L3.5-5.1FUniversity Hospitals Geauga Medical CenterProtein [Mass/Vol]5.3 g/dLLow6.4-8.2FMcKitrick Hospitalodium [Moles/Vol]140 mmol/U037-338PixcfuymfUniversity Hospitals Lake West Medical Center Triglyceride [Mass/Vol]78 mg/dL<=150[facility] Medical CenterTSH Qn1.929 m[IU]/L0.358-3.740[facility] Medical CenterUrea nitrogen [Mass/Vol]14.0 mg/dL7.0-18.0[facility] Medical CenterUrea nitrogen/Creatinine [Mass ratio]15.7 mg/mgUniversity Hospitals Lake West Medical CenterLaboratory - Hematology and Cell countsOrdered By: Griselda Krause on 57-52-8414Zwxwurnp granulocytes/100 WBC (Bld)0.1 %0.0-0.5FUniversity Hospitals Geauga Medical CenterLeukocytes [#/volume] corrected for nucleated erythrocytes in Blood by Automated counOrdered By: Griselda Krause on 31-00-7535HUC corrected for nucl RBC Auto (Bld) [#/Vol]6.7 10 3/uL 4.0-11.0[facility] Medical CenterLymphocytes Auto (Bld) [#/Vol]Ordered By: Griselda Krause on 22-11-0856Haiseeuaqzw (Bld) [#/Vol]2.5 10 3/uL1.2-3.8[facility] Medical CenterLymphocytes/100 WBC Auto (Bld)Ordered By: Griselda Krause on 67-93-0954Zwumkpfguhw/100 WBC (Bld)36.8 %20.5-60.0[facility] Medical CenterMCH Auto (RBC) [Entitic mass]Ordered By: Griselda Krause on 44-58-3279UTJ (RBC) [Entitic mass]31.8 pg25.9-34.0[facility] Medical CenterMCHC Auto (RBC) [Mass/Vol]Ordered By: Griselda Krause on 38-61-7272JWMV (RBC) [Mass/Vol]33.8 g/dL 29.9-35.2FUniversity Hospitals Geauga Medical CenterMCV Auto (RBC) [Entitic vol]Ordered By: Griselda Krause on 00-43-5855TEU (RBC) [Entitic vol]94.1 uOOwir94.0-94.0[facility] Medical CenterMonocytes Auto (Bld) [#/Vol]Ordered By: Griselda Krause on 34-75-4817Dcyylpini (Bld) [#/Vol]0.3 10 3/uL0.3-0.8[facility] Medical CenterMonocytes/100 WBC Auto (Bld)Ordered By: Griselda Krause on 04-03-2025 Monocytes/100 WBC (Bld)4.9 %1.7-12.0[facility] Medical CenterNeutrophils Auto (Bld) [#/Vol]Ordered By: Griselda Krause on 66-08-0384Yitolarwmqw (Bld) [#/Vol] 3.8 10 3/uL1.4-6.5FUniversity Hospitals Geauga Medical CenterNeutrophils/100 WBC Auto (Bld)Ordered By: Griselda Krause on 27-95-8134Etgynkhbzup/100 WBC (Bld)56.2 % 43.0-75.0[facility] CenterNo Panel InformationOrdered By: Griselda Krause on 68-79-0526Oybwxkotzbl # (Auto)0.1 10 3/uL0.0-0.7FUniversity Hospitals Geauga Medical CenterImmature Granulocyte # (Auto)0.01 10 3/uL0.00-0.03[facility] Medical CenterPlatelet mean volume Auto (Bld) [Entitic vol]Ordered By: Griselda Krause on 96-61-3621Ejqxovpz mean volume (Bld) [Entitic vol]11.6 fL9.5-13.5 [facility] CenterPlatelets Auto (Bld) [#/Vol]Ordered By: Griselda Krause on 45-84-5972Eqbfbcqcl (Bld) [#/Vol]285 10 3/aT813-290UdvmlciciUniversity Hospitals Lake West Medical CenterRBC Auto (Bld) [#/Vol]Ordered By: Griselda Krause on 89-18-4935OMH (Bld) [#/Vol]4.43 10 6/uLLow4.70-6.10City Hospitalerum or plasma albumin/globulin mass ratioOrdered By: Griselda Krause on 04-03-2025 Albumin/Globulin [Mass ratio]1.2 {ratio}City Hospitalerum or plasma anion gap determinationOrdered By: Griselda Krause on 52-28-4282Hcmrl gap [Moles/Vol]8.9 mmol/LFMcKitrick Hospitalerum or plasma total cholesterol/high density lipoprotein (HDL) cholesterol mass ratOrdered By: Griselda Krause on 56-63-4902Qmtziegssmj.total/Cholesterol in HDL [Mass ratio]1.8 {ratio} [facility] CenterComment on above:3.3 - 4.4 LOW RISK4.4 - 7.1 AVERAGE RISK7.1 - 11.0 MODERATE RISK>11.0 HIGH RISKConsulton 09-24-3070Ewjyqpc [id number] Shantel Melendez 1960 M Date Provider Department Center 03/24/2025 DEBRA LYNN [facility] SURG Second Fl Family History Problem Relation Age of Onset Heart disease Mother Cancer Father Stroke Paternal Grandfather Family Status - Relation Status Age at Mother Alive Father Alive Paternal Grandfather Alive Level of Service:96762 [place] OFFICE/OUTPATIENT NEW MODERATE MDM 45 MINUTESNormal [facility] Regional HospitalUS ankle/arm indiceson 40-94-4948JR ankle/arm indicesAULTMAN ORRVILLE [place] [address] Ultrasound Report Signed Patient: Shantel Melendez MR#: [id number] : 1960 Acct:[id number] Age/Sex: 64 / M ADM Date: 02/26/25 Loc: Room: Type: DEP CLI Attending Dr: Griselda Krause DO Ordering Provider: Girselda Krause DO Date of Service: 02/26/25 US/US ankle/arm indices: I73.9 - Peripheral vascular disease, unspecified Copies to: Griselda Krause,DO LOWER EXTREMITY SEGMENTAL ARTERIAL DOPSCAN (PVR) INDICATION: [...] Harvey MD,FACS,FSVS 02/27/2025 7:42 AM Dictation Location: [place] [address] Tech: Agueda Helm Transcribed By: MARISA 02/27/25 0742 Dictated By: Ruddy Harvey MD 02/27/25 0741 Signed By: 02/27/25 0742[facility] Physician GroupBasophils Auto (Bld) [#/Vol] Ordered By: Sofia Marker on 23-64-5041Ockggnuam (Bld) [#/Vol]0.1 10 3/uL 0.0-0.1FUniversity Hospitals Geauga Medical CenterBasophils/100 WBC Auto (Bld)Ordered By: Sofia Marker on 02-21-6469Qfnlhpznq/100 WBC (Bld)0.7 %0.2-2.0[facility] CenterEosinophils/100 WBC Auto (Bld)Ordered By: Sofia Marker on 61-45-4471Majumqzbrlp/100 WBC (Bld)1.1 %0.9-7.0[facility] Medical CenterErythrocyte distribution width Auto (RBC) [Ratio]Ordered By: Sofia Marker on 36-11-9645Kyijmqmpmwi distribution width (RBC) [Ratio]13.4 %11.0-15.0 [facility] Medical CenterFibrin D-dimer [Presence] in Platelet poor plasma by Latex agglutinationOrdered By: Sofia Marker on 99-68-7770Qevqmh D- dimer LA Ql (PPP)0.56 mg/L FEU<=0.59[facility] Medical CenterComment on above:Increases in D-Dimer concentration observed withthromboembolic [...] Calc (S) [Mass/Vol]Ordered By: Sofia Marker on 33-16-5482Wloiuugt (S) [Mass/Vol]2.5 g/dLUniversity Hospitals Lake West Medical CenterGlomerular filtration rate (GFR) estimation in non- AmericanOrdered By: Sofia Marker on 02-18-2025 GFR/1.73 sq M.predicted among non-blacks MDRD (S/P/Bld) [Vol rate/Area] mL/min/{1.73_m2}>=60 mL/min/1.73m 2FUniversity Hospitals Geauga Medical CenterHematocrit Auto (Bld) [Volume fraction]Ordered By: Sofia Marker on 12-96-3395Oxxhigxqmj (Bld) [Volume fraction]39.7 %Low42.0-54.0[facility] Hemoglobin [Mass/volume] in BloodOrdered By: Sofia Marker on 02-18-2025 Hemoglobin (Bld) [Mass/Vol]13.8 g/dLLow14.0-18.0[facility] Medical CenterLaboratory - Chemistry and Chemistry - challengeOrdered By: Sofia Marker on 13-52-3748Mcuhzqe [Mass/Vol]3.0 g/dLLow3.4-5.0[facility] CenterALP [Catalytic activity/Vol]68 U/Q31-596ZcvtcsiidUniversity Hospitals Lake West Medical Center ALT [Catalytic activity/Vol]18 U/Y90-63WfwadrgkhUniversity Hospitals Lake West Medical CenterAST [Catalytic activity/Vol]11 U/HSor61-21VwrdhnpenUniversity Hospitals Lake West Medical CenterBilirubin [Mass/Vol]0.8 mg/dL0.2-1.0[facility] Medical CenterCalcium [Mass/Vol]9.5 mg/dL8.5-10.1FUniversity Hospitals Geauga Medical CenterChloride [Moles/Vol]108 mmol/L Vusi98-423AdxjcnoikUniversity Hospitals Lake West Medical CenterCO2 [Moles/Vol]27.5 mmol/L21.0-32.0 [facility] CenterCreatinine [Mass/Vol]0.87 mg/dL0.70-1.30 [facility] CenterGFR/1.73 sq M.predicted MDRD (S/P/Bld) [Vol rate/Area]mL/min/{1.73_m2}>=60 mL/min/1.73m 2FUniversity Hospitals Geauga Medical Center Glucose [Mass/Vol]78 mg/kR61-048QezqoqpwyUniversity Hospitals Lake West Medical CenterPotassium [Moles/Vol]4.1 mmol/L3.5-5.1FUniversity Hospitals Geauga Medical CenterProtein [Mass/Vol] 5.5 g/dLLow6.4-8.2FMcKitrick Hospitalodium [Moles/Vol]144 mmol/L 136-145[facility] Medical CenterUrea nitrogen [Mass/Vol]11.0 mg/dL 7.0-18.0[facility] CenterUrea nitrogen/Creatinine [Mass ratio] 12.6 mg/mgUniversity Hospitals Lake West Medical CenterLaboratory - Hematology and Cell countsOrdered By: Sofia Marker on 56-98-7592Tyfxucff granulocytes/100 WBC (Bld)0.3 %0.0-0.5FUniversity Hospitals Geauga Medical CenterLeukocytes [#/volume] corrected for nucleated erythrocytes in Blood by Automated counOrdered By: Sofia Marker on 78-32-5611TEY corrected for nucl RBC Auto (Bld) [#/Vol]7.4 10 3/uL4.0-11.0[facility] Medical CenterLymphocytes Auto (Bld) [#/Vol] Ordered By: Sofia Marker on 37-14-6497Dshdodntgwk (Bld) [#/Vol]2.1 10 3/uL 1.2-3.8[facility] Medical CenterLymphocytes/100 WBC Auto (Bld)Ordered By: Sofia Marker on 06-43-2830Ddaftgmvwha/100 WBC (Bld)28.8 %20.5-60.0 [facility] Medical CenterMCH Auto (RBC) [Entitic mass]Ordered By: Sofia Marker on 79-44-0247OFY (RBC) [Entitic mass]32.5 pg25.9-34.0[facility] Medical CenterMCHC Auto (RBC) [Mass/Vol]Ordered By: Sofia Marker on 78-56-2646NOWV (RBC) [Mass/Vol]34.8 g/dL29.9-35.2FUniversity Hospitals Geauga Medical CenterMCV Auto (RBC) [Entitic vol]Ordered By: Sofia Marker on 38-95-0611QAF (RBC) [Entitic vol]93.4 fL80.0-94.0[facility] Medical CenterMonocytes Auto (Bld) [#/Vol]Ordered By: Sofia Marker on 78-91-9720Amqjbndyr (Bld) [#/Vol]0.4 10 3/uL0.3-0.8[facility] CenterMonocytes/100 WBC Auto (Bld)Ordered By: Sofia Marker on 15-10-0266Vonfdsctw/100 WBC (Bld)5.6 % 1.7-12.0[facility] Medical CenterNeutrophils Auto (Bld) [#/Vol]Ordered By: Sofia Marker on 85-27-8464Dxwbwyetcjv (Bld) [#/Vol]4.7 10 3/uL1.4-6.5 [facility] Medical CenterNeutrophils/100 WBC Auto (Bld)Ordered By: Sofia Marker on 59-23-1335Wxxeyyfevls/100 WBC (Bld)63.5 %43.0-75.0[facility] CenterNo Panel InformationOrdered By: Sofia Marker on 64-30-6397Bnmoautryqi # (Auto)0.1 10 3/uL0.0-0.7FUniversity Hospitals Geauga Medical CenterImmature Granulocyte # (Auto)0.02 10 3/uL0.00-0.03[facility] CenterTroponin I High Pcrspkydevx20.3 pg/mL4.0-76.1FUniversity Hospitals Geauga Medical CenterComment on above:CUT-OFF POINTS HAVE BEEN ESTABLISHED BASED [...] (Bld) [Entitic vol]Ordered By: Sofia Marker on 37-30-7888Kxsvqxgh mean volume (Bld) [Entitic vol]11.4 fL9.5-13.5FUniversity Hospitals Geauga Medical Center Platelets Auto (Bld) [#/Vol]Ordered By: Sofia Marker on 70-86-2597Tjtrxfohn (Bld) [#/Vol]246 10 3/pI941-042PfzslwzihUniversity Hospitals Lake West Medical CenterRBC Auto (Bld) [#/Vol]Ordered By: Sofia Marker on 75-65-5480ARZ (Bld) [#/Vol]4.25 10 6/uLLow 4.70-6.10City Hospitalerum or plasma albumin/globulin mass ratioOrdered By: Sofia Marker on 68-61-5328Uijlboz/Globulin [Mass ratio]1.2 {ratio}City Hospitalerum or plasma anion gap determination Ordered By: Sofia Marker on 85-77-4638Faxag gap [Moles/Vol]12.6 mmol/L [facility]36on 93-84-987202Pmqjpwa scheduled for 03/24/25 @ 10:30amNormalEast [facility] Regional Hospital36LVM for pt to call clinic to schedule consult with Dr. Figueroa to discuss SCS placement. Imaging requested. Please transfer pt to pre reg after call. Please inform display card writer when scheduled. [employer] reps will need notified.Normal [facility] HospitalTelephoneon [phone] Shantel Melendez 1960 M Date Provider Department Center 02/13/2025 AYAH ALCOCER [facility] SURG Second Fl No family history on fileNormalUniversity of Ut Health TylerActivated partial thromboplastin time (aPTT) in platelet poor plasma by coagulation a Ordered By: Andguillaume Ramsey on 09-21-5475jFSD Coag (PPP) [Time]24.2 s 22.3-36.2FUniversity Hospitals Geauga Medical CenterBasophils Auto (Bld) [#/Vol]Ordered By: Andrius Giedraitis on 30-85-5434Ckoftvtly (Bld) [#/Vol]0.0 10 3/uL0.0-0.1 [facility] CenterBasophils/100 WBC Auto (Bld)Ordered By: Andrius Flowersraitis on 28-14-7366Ufeenvtge/100 WBC (Bld)0.2 %0.2-2.0[facility] CenterEosinophils/100 WBC Auto (Bld)Ordered By: Andrius Flowersraitis on 48-56-6252Xrukopnefwv/100 WBC (Bld)0.1 %Low0.9-7.0[facility] Medical CenterErythrocyte distribution width Auto (RBC) [Ratio]Ordered By: Andrius Gipaoraitis on 83-70-2208Xnvwahycrmi distribution width (RBC) [Ratio]14.1 % 11.0-15.0[facility] Medical CenterGlomerular filtration rate (GFR) estimation in non- AmericanOrdered By: Andrius Ramsey on 01-27-2025 GFR/1.73 sq M.predicted among non-blacks MDRD (S/P/Bld) [Vol rate/Area] mL/min/{1.73_m2}>=60 mL/min/1.73m 2FUniversity Hospitals Geauga Medical CenterHematocrit Auto (Bld) [Volume fraction]Ordered By: Andrius Flowersrajovany on 01-27-2025 Hematocrit (Bld) [Volume fraction]38.0 %Low42.0-54.0[facility] Medical CenterHemoglobin [Mass/volume] in BloodOrdered By: Andrius Kristieraitis on 91-17-7986Ztfbonjyxe (Bld) [Mass/Vol]13.0 g/dLLow14.0-18.0[facility] Medical CenterINR in Platelet poor plasma by Coagulation assayOrdered By: Sarina Ramsey on 89-60-7809EWD Coag (PPP) [Relative time]1.09 {INR} [facility] Medical CenterComment on above:DESIRED INR:2.0-3.0 CONDITIONS NOT LISTED BELOW2.5-3.5 FOR PROSTHETIC HEART VALVE REPLACEMENT2.5-3.5 RECURRENT THROMBOSISLaboratory - Chemistry and Chemistry - challengeOrdered By: Sarina Ramsey on 93-46-5962Zqjpapl [Mass/Vol]9.2 mg/dL8.5-10.1FUniversity Hospitals Geauga Medical CenterChloride [Moles/Vol]106 mmol/G88-949PnoxeaigzUniversity Hospitals Lake West Medical CenterCO2 [Moles/Vol]28.7 mmol/L21.0-32.0[facility] Creatinine [Mass/Vol]0.81 mg/dL0.70-1.30[facility] GFR/1.73 sq M.predicted MDRD (S/P/Bld) [Vol rate/Area]mL/min/{1.73_m2}>=60 mL/min/1.73m 2FUniversity Hospitals Geauga Medical CenterGlucose [Mass/Vol]89 mg/hB43-258 [facility] CenterPotassium [Moles/Vol]3.7 mmol/L3.5-5.1FMcKitrick Hospitalodium [Moles/Vol]138 mmol/J306-655OkrfwylhaUniversity Hospitals Lake West Medical CenterUrea nitrogen [Mass/Vol]17.0 mg/dL7.0-18.0[facility] CenterUrea nitrogen/Creatinine [Mass ratio]21.0 mg/mgUniversity Hospitals Lake West Medical CenterLaboratory - Hematology and Cell countsOrdered By: Sarina Ramsey on 85-58-4704Cqdsdrmf granulocytes/100 WBC (Bld)0.2 %0.0-0.5FUniversity Hospitals Geauga Medical CenterLeukocytes [#/volume] corrected for nucleated erythrocytes in Blood by Automated counOrdered By: Sarina Ramsey on 63-21-9515RPS corrected for nucl RBC Auto (Bld) [#/Vol]8.2 10 3/uL4.0-11.0 [facility] Medical CenterLymphocytes Auto (Bld) [#/Vol]Ordered By: Andrius Giedraitis on 56-36-4938Vwertmeroxh (Bld) [#/Vol]2.4 10 3/uL1.2-3.8 [facility] Medical CenterLymphocytes/100 WBC Auto (Bld)Ordered By: Andrius Giedraitis on 27-78-0744Obkvkrsrnwk/100 WBC (Bld)29.3 %20.5-60.0 [facility] TroyH Auto (RBC) [Entitic mass]Ordered By: Andrius Giedraitis on 03-20-5166JGB (RBC) [Entitic mass]32.1 pg25.9-34.0 [facility] Medical CenterMCHC Auto (RBC) [Mass/Vol]Ordered By: Andrius Giedraitis on 63-08-7644RHVY (RBC) [Mass/Vol]34.2 g/dL29.9-35.2FUniversity Hospitals Geauga Medical CenterMCV Auto (RBC) [Entitic vol]Ordered By: Andrius Giedraitis on 82-00-2332XYR (RBC) [Entitic vol]93.8 fL80.0-94.0[facility] CenterMonocytes Auto (Bld) [#/Vol]Ordered By: Andrius Giedraitis on 06-41-2673Lvptuacsy (Bld) [#/Vol]0.4 10 3/uL0.3-0.8[facility] CenterMonocytes/100 WBC Auto (Bld)Ordered By: Andrius Giedraitis on 24-36-6360Ismhbcdxa/100 WBC (Bld)5.0 %1.7-12.0[facility] Medical CenterNeutrophils Auto (Bld) [#/Vol]Ordered By: Andrius Giedraitis on 18-18-5975Hdswuwghwif (Bld) [#/Vol]5.4 10 3/uL1.4-6.5FUniversity Hospitals Geauga Medical CenterNeutrophils/100 WBC Auto (Bld)Ordered By: Andrius Giedraitis on 01-27-2025 Neutrophils/100 WBC (Bld)65.2 %43.0-75.0[facility] CenterNo Panel InformationOrdered By: Sarina Flowersraitis on 75-95-9049Xecsdulkpvy # (Auto)0.0 10 3/uL0.0-0.7FUniversity Hospitals Geauga Medical CenterImmature Granulocyte # (Auto)0.02 10 3/uL0.00-0.03[facility] Medical CenterPlatelet mean volume Auto (Bld) [Entitic vol]Ordered By: Andrius Giedraitis on 77-16-4972Hoaaaupo mean volume (Bld) [Entitic vol]11.4 fL9.5-13.5FUniversity Hospitals Geauga Medical Center Platelets Auto (Bld) [#/Vol]Ordered By: Andrius Giedraitis on 01-27-2025 Platelets (Bld) [#/Vol]214 10 3/sS626-915JypyrgcuyUniversity Hospitals Lake West Medical Center Prothrombin time (PT)Ordered By: Andrius Giedraitis on 10-49-5146LF Coag (PPP) [Time]11.5 s9.0-11.6FUniversity Hospitals Geauga Medical CenterRBC Auto (Bld) [#/Vol] Ordered By: Andrius Giedraitis on 02-55-3157NKY (Bld) [#/Vol]4.05 10 6/uLLow 4.70-6.10City Hospitalerum or plasma anion gap determinationOrdered By: Andrius Giedraitis on 48-08-9651Jzfad gap [Moles/Vol] 7.0 mmol/LFUniversity Hospitals Geauga Medical CenterNo Panel Informationon 42-78-8117BVJU HealthcareNONV HealthcareXR CERVICAL SPINE 2-3 VIEWSon 55-11-1402OM CERVICAL SPINE 2-3 VIEWSCervical spine. HISTORY: Cervical [...] AvailableX-ray report Ordered By: Yung Pozo on 09-19-7922Xymvu reportAULTMAN ORRVILLE HOSPITAL Main [address] [address] XRay Report Signed Patient: Shantel Melendez MR#: [id number] : 1960 Acct:[id number] Age/Sex: 64 / M ADM Date: 5 Loc: [facility]: Griselda Krause DO Copies to: Griselda Krause DO~ Ordering Provider: Griselda Krause DO Date of Service: 11/24/24 XR/XR chest 2V*: B33.8 - Other specified viral diseases Chest 2 views CLINICAL HISTORY: Productive cough sinus drainage COMPARISON: Chest 09/20/2024 FINDINGS: Heart is normal in size. No consolidation pneumothorax pleural effusion or freeair. Lingular scarring. XR/XR chest 2V* IMPRESSION: NO ACUTE CARDIOPULMONARY ABNORMALITY. Impression dictated by: Yung Pozo Jr., D.OMaria R 2024 4:30 PM Dictation Location: [place] [address] Transcribed By: [facility] 11/24/24 1630 Dictated By: Yung Pozo Jr, DO 11/24/24 1630 Signed By: 11/24/24 1630 [facility] Medical CenterXR chest 2V*on 63-19-7449WT chest 2V*[facility] Main [address] [address] XRay Report Signed Patient: Shantel Melendez MR#: [id number] : 1960 Acct:[id number] Age/Sex: 64 / M ADM Date: 11/24/24 Loc: [facility] Room: Type: [facility] Attending Dr: Griselda Krause DO Copies to: Griselda Krause DO Ordering Provider: Griselda Krause DO Date of Service: 11/24/24 XR/XR chest 2V*: B33.8 - Other specified viral diseases Chest 2 views CLINICAL HISTORY: Productive cough sinus drainage COMPARISON: Chest 09/20/2024 FINDINGS: Heart is normal in size. No consolidation pneumothorax pleural effusion or free air. Lingular scarring. XR/XR chest 2V* IMPRESSION: NO ACUTE CARDIOPULMONARY ABNORMALITY. Impression dictated by: Yung Pozo Jr., D.OMaria R 2024 4:30 PM Dictation Location: [place] [address] Transcribed By: [facility] 11/24/24 1630 Dictated By: Yung Pozo Jr, DO 11/24/24 1630 Signed By: 11/24/24 1630[facility] Physician GroupInfluenza virus B Ag [Presence] in Upper respiratory specimen by Rapid immunoassayon 42-33-1503OFOHD Ag IA.rapid Ql (Nph)Influenza virus B Ag [Presence] in Upper respiratory specimen by Rapid immunoassayUniversity Hospitals Lake West Medical CenterFLUBV Ag IA.rapid Ql (Nph)Negative [facility] CenterNo Panel Informationon 70-73-7685Ylbodmibk Type A (Rapid)NegativeUniversity Hospitals Lake West Medical CenterPO SARS CoV-2 Antigen NegativeUniversity Hospitals Lake West Medical CenterNo Panel InformationOrdered By: Griselda Krause on 56-02-6811Gpyeg Strep (POC)[facility] Medical CenterRSV (POC) [facility] Medical CenterCNOVSPon 45-90-0523DPQXOSUyhkv (SP) Office (HEMASA) SHANTEL MELENDEZ ([id number]) 1960 M Date Time Provider Department 11/07/24 9:20 AM RACQUEL COLE During your visit today, we recorded the following information about you: Temperature Pulse Respiration Blood pressure 97.5 degrees 72/minute 16/minute 115/89 Weight Height 79.3 kg 1.706 m Racquel Cole MD 11/07/2024 11:09 AM Signed NAME: Shantel Melendez CLINIC NO.: [id number] DATE OF SERVICE: November 07, 2024 (Curtis) Some elements in this clinic note that are critical to medical decision making have been carefully reviewed and included from a prior clinic note dated: November 02, 2023 (Curtis) Referring Provider: Griselda Krause, DO Additional Clinicians involved in Shantel Melendez's care: Dr Kimberly Nichole ENT, Dr. 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 10/05/2021 - [place] Brain[place] [facility] [place] There is T2 and [...] This may represent (more content not included)... NormalMiami Valley Hospital ClevelandNo Panel InformationOrdered By: Nathanael Arango on 02-55-3870Rffelyhfpdzef Pathology TestSee commentUniversity Hospitals Lake West Medical CenterComment on above:See report. Scanned copy available in EMR.Pathology Request for Lab Corpon [id number] Request for Lab CorpMemorial Hospital Miramar Physician GroupComment on above:Order Comment: GI SPECIMENResult Comment: See report. Scanned copy available in EMR. PERFORMED BY: [place] [address] PATHOLOGIST CLOTH HAND EDUARDO HOLLINGSWORTH M.D.Performed By: #### PATH TO [facility] #### [place] [address] USABasophils Auto (Bld) [#/Vol]on 05-17-9323Mnpsguifg (Bld) [#/Vol]Automated basophil count<0.11University Hospit[facility] Lake West Medical CenterBasophils (Bld) [#/Vol]0.06 10*3/uL<0.11[facility] Medical CenterBasophils/100 WBC Auto (Bld)on 04-49-4047Xzafwxmwv/100 WBC (Bld)Automated basophil %[facility] Medical CenterBasophils/100 WBC (Bld)1.0 %[facility] Medical CenterBlood manual differential comment interpretation narrativeon 11-03-2024 Manual differential comment Curtis (Bld) [Interp]Blood manual differential comment interpretation narrativeUniversity Hospitals Lake West Medical CenterManual differential comment Curtis (Bld) [Interp]AutoUniversity Hospitals Lake West Medical CenterCBC W Auto Differential panel (Bld)on 94-45-9341Edowfjnic (Bld) [#/Vol]0.06 10*3/uLNINF Canton ClinicBasophils/100 WBC (Bld)1 %Miami Valley HospitalDifferential cell count method Nom (Bld)AutoCleveland ClinicEosinophils (Bld) [#/Vol]0.16 10*3/uL NINFCleveland ClinicEosinophils/100 WBC (Bld)2.7 %Miami Valley HospitalErythrocyte distribution width (RBC) [Ratio]14.6 %11.5 - 15.0 %[facility] Valley HospitalHematocrit (Bld) [Volume fraction]40 %39.0 - 51.0 %[facility] Valley HospitalHemoglobin (Bld) [Mass/Vol]13.6 g/dL13.0 - 17.0 g/dLMiami Valley HospitalImmature granulocytes (Bld) [#/Vol]NINFClevelMedina HospitalImmature granulocytes/100 WBC (Bld)0.2 %[facility] Valley HospitalLymphocytes (Bld) [#/Vol]2.73 10*3/uLMiami Valley HospitalLymphocytes/100 WBC (Bld)45.3 %[facility] JacksonH (RBC) [Entitic mass]31.9 pg26.0 - 34.0 pg [facility] – JacksonHC (RBC) [Mass/Vol]34 g/dL30.5 - 36.0 g/dLHolzer Medical Center – JacksonV (RBC) [Entitic vol]93.9 fL80.0 - 100.0 fLCSelect Medical Specialty Hospital - Cleveland-FairhillMonocytes (Bld) [#/Vol] 0.4 10*3/uLNINFMiami Valley HospitalMonocytes/100 WBC (Bld)6.6 %[facility] Neutrophils (Bld) [#/Vol]2.67 10*3/uLMiami Valley HospitalNeutrophils/100 WBC (Bld) 44.2 %[facility] Valley HospitalNucleated RBC (Bld) [#/Vol]NINFCleveland ClinicNucleated RBC/100 WBC (Bld) [Ratio]0 %/100 WBCMiami Valley HospitalPlatelet mean volume (Bld) [Entitic vol]11 fL9.0 - 12.7 fLCdunlap memorial hospital ClinicPlatelets (Bld) [#/Vol]281 10*3/uLMiami Valley HospitalRBC (Bld) [#/Vol]4.26 10*6/uL4.20 - 6.00 m/Bellevue HospitalWBC (Bld) [#/Vol]6.03 10*3/[facility] ClinicBasophils (Bld) [#/Vol]0.06 10*3/uLNormal<0.11CSt. John of God HospitalComment on above: Order Comment: Specimen Type: BLOOD SPECIMEN Ordering Facility: [facility] Address: [address] [place], [place] [address]Performed By: #### 15286-2 #### [facility] CLIA [id number] [address] [place] [address] 56775Shsxebtyd/100 WBC (Bld)1.0 %NormalSouthview Medical Center Comment on above:Order Comment: Specimen Type: BLOOD SPECIMEN Ordering Facility: [facility] Address: [address] [place], [place] [address]Performed By: #### 10098-3 #### [facility] CLIA [id number] [address] [place] [address] 34336Wavpdkliszsi cell count method Nom (Bld)AutoNormalCSumma Health Barberton Campus on above:Order Comment: Specimen Type: BLOOD SPECIMEN Ordering Facility: [facility] Address: [address] [place], [place] [address]Performed By: #### 56134-8 #### [facility] CLIA [id number] [address] [place] [address] 02765Adhutlkvnil (Bld) [#/Vol]0.16 10*3/uLNormal<0.46[facility] on above:Order Comment: Specimen Type: BLOOD SPECIMEN Ordering Facility: [facility] Address: [address] [place], [place] [address]Performed By: #### 68907-6 #### [facility] CLIA [id number] [address] [place] [address] 45766Ypodudkbcsv/100 WBC (Bld)2.7 %NormalSouthview Medical Center Comment on above:Order Comment: Specimen Type: BLOOD SPECIMEN Ordering Facility: [facility] Address: [address] [place], [place] [address]Performed By: #### 85385-4 #### [facility] CLIA [id number] [address] [place] [address] 05134Iwptvbqycta distribution width (RBC) [Ratio]14.6 %Normal 11.5-15.0[facility] on above:Order Comment: Specimen Type: BLOOD SPECIMEN Ordering Facility: [facility] Address: [address] [place], [place] [address]Performed By: #### 19607-6 #### [facility] CLIA [id number] [address] [place] [address] 61691Ylhvetjdto (Bld) [Volume fraction]40.0 %Tdtjpi34.0-51.0 [facility] on above:Order Comment: Specimen Type: BLOOD SPECIMEN Ordering Facility: [facility] Address: [address] [place], [place] [address]Performed By: #### 58851-7 #### [facility] CLIA [id number] [address] [place] [address] 79127Pihbjpurnt (Bld) [Mass/Vol]13.6 g/iCGdsfrs52.0-17.0[facility] on above:Order Comment: Specimen Type: BLOOD SPECIMEN Ordering Facility: [facility] Address: [address] [place], [place] [address]Performed By: #### 87167-9 #### [facility] CLIA [id number] [address] [place] [address] 46270Wvbkrfql granulocytes (Bld) [#/Vol]10*3/uLNormal<0.10[facility] on above:Order Comment: Specimen Type: BLOOD SPECIMEN Ordering Facility: [facility] Address: [address] [place], [place] [address]Performed By: #### 20366-3 #### [facility] CLIA [id number] [address] [place] [address] 71461Gnsfakvc granulocytes/100 WBC (Bld)0.2 %NormalSt. [facility]'s [facility] on above:Order Comment: Specimen Type: BLOOD SPECIMEN Ordering Facility: [facility] Address: [address] [place], [place] [address]Performed By: #### 78876-8 #### [facility] CLIA [id number] [address] [place] [address] 12500Cekgtpxuyrs (Bld) [#/Vol]2.73 10*3/uLNormal1.00-4.00[facility] on above:Order Comment: Specimen Type: BLOOD SPECIMEN Ordering Facility: [facility] Address: [address] [place], [place] [address]Performed By: #### 50283-3 #### [facility] CLIA [id number] [address] [place], [place] [address]Cprjektgomy/100 WBC (Bld)45.3 %NormalSt. Mary's [facility] on above:Order Comment: Specimen Type: BLOOD SPECIMEN Ordering Facility: [facility] Address: [address] [place], [place] [address]Performed By: #### 94587-6 #### [facility] CLIA [id number] [address] [place] [address] 08146VEF (RBC) [Entitic mass]31.9 bmHkuwbw24.0-34.0[facility] on above:Order Comment: Specimen Type: BLOOD SPECIMEN Ordering Facility: [facility] Address: [address] [place], [place] [address]Performed By: #### 35713-8 #### [facility] CLIA [id number] [address] [place], [place] [address]MEXW (RBC) [Mass/Vol]34.0 g/gMMrpogd11.5-36.0[facility] on above:Order Comment: Specimen Type: BLOOD SPECIMEN Ordering Facility: [facility] Address: [address] [place], [place] [address]Performed By: #### 23561-4 #### [facility] CLIA [id number] [address] [place] [address] 10206UYB (RBC) [Entitic vol]93.9 dWFleztl16.0-100.0[facility] on above:Order Comment: Specimen Type: BLOOD SPECIMEN Ordering Facility: [facility] Address: [address], [place] [address]Performed By: #### 80216-8 #### [facility] CLIA [id number] [address] [place] [address] 91182Aaqmxskkp (Bld) [#/Vol]0.40 10*3/uLNormal<0.87[facility] on above:Order Comment: Specimen Type: BLOOD SPECIMEN Ordering Facility: [facility] Address: [address] [place], [place] [address]Performed By: #### 46681-8 #### [facility] CLIA [id number] [address] [place] [address] 98152Tueuqvbnu/100 WBC (Bld)6.6 %NormalSouthview Medical Center Comment on above:Order Comment: Specimen Type: BLOOD SPECIMEN Ordering Facility: [facility] Address: [address] [place], [place] [address]Performed By: #### 86639-7 #### [facility] CLIA [id number] [address] [place] [address] 28021Qanioyevaux (Bld) [#/Vol]2.67 10*3/uLNormal1.45-7.50[facility] on above:Order Comment: Specimen Type: BLOOD SPECIMEN Ordering Facility: [facility] Address: [address] [place], [place] [address]Performed By: #### 96336-1 #### [facility] CLIA [id number] [address] [place] [address] 02863Ryritloiesj/100 WBC (Bld)44.2 %NormalSouthview Medical CenterCommclaren oakland on above:Order Comment: Specimen Type: BLOOD SPECIMEN Ordering Facility: [facility] Address: [address] [place], [place] [address]Performed By: #### 42485-4 #### [facility] CLIA [id number] [address] [place] [address] 64563Xegbbdsev RBC (Bld) [#/Vol]10*3/uLNormal<0.01[facility] on above:Order Comment: Specimen Type: BLOOD SPECIMEN Ordering Facility: [facility] Address: [address], [place] [address]Performed By: #### 96594-6 #### [facility] CLIA [id number] [address], [place] [address]Ynnfbflvd RBC/100 WBC (Bld) [Ratio]0.0 /100 WBCNormalCSumma Health Barberton Campus on above:Order Comment: Specimen Type: BLOOD SPECIMEN Ordering Facility: [facility] Address: [address] [place], [place] [address]Performed By: #### 78979-2 #### [facility] CLIA [id number] [address], [place] [address]Meyyrhlc mean volume (Bld) [Entitic vol]11.0 fLNormal9.0-12.7 [facility] on above:Order Comment: Specimen Type: BLOOD SPECIMEN Ordering Facility: [facility] Address: [address] [place], [place] [address]Performed By: #### 90752-3 #### [facility] CLIA [id number] [address], [place] [address]Kcwqgqxlq (Bld) [#/Vol]281 10*3/uMFowypx080-273YfxoqzrmjSt. [facility] on above:Order Comment: Specimen Type: BLOOD SPECIMEN Ordering Facility: [facility] Address: [address] [place], [place] [address]Performed By: #### 01038-8 #### [facility] CLIA [id number] [address], [place] [address]HQL (Bld) [#/Vol]4.26 10*6/uLNormal4.20-6.00[facility] on above:Order Comment: Specimen Type: BLOOD SPECIMEN Ordering Facility: [facility] Address: [address] [place], [place] [address]Performed By: #### 47551-1 #### [facility] CLIA [id number] [address], [place] [address]KUK (Bld) [#/Vol]6.03 10*3/uLNormal3.70-11.00[facility] on above:Order Comment: Specimen Type: BLOOD SPECIMEN Ordering Facility: [facility] Address: [address] [place], [place] [address]Performed By: #### 85341-9 #### [facility] CLIA [id number] [address], [place] [address]GZFEgn 15-66-5014PRVKQipdkavym (HEMTSA) SHANTEL MELENDEZ ([id number]) 1960 M Date Time Provider Department 11/03/24 [...] [C76.0] Order(s):COMPREHENSIVE METABOLIC PANEL [SQCMP] Order #: [id number] FUTURE COMPLETE BLOOD COUNT AND DIFFERENTIAL [SQCBCDIF] Order #: [id number] FUTURE Prescriptions as of 11/03/2024 - amLODIPine [...] hours. Encounter Status:Closed by RACQUEL COLE on 11/03/24[facility] CHEST W IVCONon [id number] CHEST W IVCON* * *Final Report* * * DATE OF EXAM: Nov 03 2024 8:41AM [facility] 0539 - CT CHEST W [...] any questions regarding this interpretation, please call [phone]. If you are unable to reach us at the number above, please feel free to contact [facility] eRadiology at [phone]. [id number] Medical CenterCT Chest W contrast Tristin [id number]: 1. No CT evidence of new metastatic [...] any questions regarding this interpretation, please call [phone]. If you are unable to reach us at the number above, please feel free to contact [facility]Radiology at [phone].DIVISION OF RADIOLOGY* * *Final Report* * * DATE OF EXAM: Nov 03 2024 8:41AM [facility] 0539 - CT CHEST W [...] images: No additional findings. DIVISION OF RADIOLOGYProvider, [facility] [place] - 11/03/2024 * * *Final Report* * * DATE OF EXAM: Nov 03 2024 8:41AM [facility] 0539 - CT CHEST W [...] any questions regarding this interpretation, please call [phone]. If you are unable to reach us at the number above, please feel free to contact [facility]Radiology at [phone]. [facility] HospitalCT NECK SOFT TISSUE W IVCONon 71-28-2496MT NECK SOFT TISSUE W IVCON* * *Final Report* * * DATE OF EXAM: Nov 03 2024 8:41AM [facility] 0013 - CT NECK SOFT [...] 1. No evidence of abnormal lymph nodes. [email or web address] [email or web address] Transcribe Date/Time: Nov 03 2024 8:53A Dictated by: BENJAMIN AL MD This examination was interpreted and the report reviewed and electronically signed by: BENJAMIN AL MD on Nov 03 2024 9:01AM EST Thank you for allowing us to participate in the care of your patient. Should there be any questions regarding this interpretation, please call [phone]. If you are unable to reach us at the number above, please feel free to contact [facility] eRadiology at [phone]. [id number] Community Hospital Neck W contrast Tristin [id number]: Primary: Category 1. Expected post-treatment changes in the neck without evidence of recurrent disease in the primary site. Neck: Category 1. No evidence of abnormal lymph nodes. [email or web address] [email or web address] Transcribe Date/Time: Nov 03 2024 8:53A Dictated by: BENJAMIN AL MD This examination was interpreted and the report reviewed and electronically signed by: BENJAMIN AL MD on Nov 03 2024 9:01AM EST Thank you for allowing us to participate in the care of your patient. Should there be any questions regarding this interpretation, please call [phone]. If you are unable to reach us at the number above, please feel free to contact [facility] at [phone].DIVISION OF RADIOLOGY* * *Final Report* * * DATE OF EXAM: Nov 03 2024 8:41AM [facility] 0013 - CT NECK SOFT [...] mass. Other: Not applicable. DIVISION OF RADIOLOGYProvider, [facility] [place] - 11/03/2024 * * *Final Report* * * DATE OF EXAM: Nov 03 2024 8:41AM [facility] 0013 - CT NECK SOFT [...] 1. No evidence of abnormal lymph nodes. [email or web address] [email or web address] Transcribe Date/Time: Nov 03 2024 8:53A Dictated by: BENJAMIN LA MD This examination was interpreted and the report reviewed and electronically signed by: BENJAMIN AL MD on Nov 03 2024 9:01AM EST Thank you for allowing us to participate in the care of your patient. Should there be any questions regarding this interpretation, please call [phone]. If you are unable to reach us at the number above, please feel free to contact [facility] eRadiology at [phone]. [facility] Neck W contrast IVOrdered By: Ccf Provider on 11-03-2024 [facility] HospitalEosinophils/100 WBC Auto (Bld)on 37-36-8576Hbtsgolsjjj/100 WBC (Bld)Automated eosinophil %[facility] CenterEosinophils/100 WBC (Bld)2.7 %[facility] Medical CenterErythrocyte distribution width Auto (RBC) [Ratio]on 89-50-4159Wqbngkxxcbg distribution width (RBC) [Ratio] Erythrocyte distribution width [Ratio] by Automated count11.5-15.0[facility] Medical CenterErythrocyte distribution width (RBC) [Ratio]14.6 % 11.5-15.0[facility] Medical CenterHematocrit Auto (Bld) [Volume fraction]on 94-03-3106Xlqveskfyh (Bld) [Volume fraction]Hematocrit [Volume Fraction] of Blood by Automated count39.0-51.0[facility] Hematocrit (Bld) [Volume fraction]40.0 %39.0-51.0[facility] Medical CenterHemoglobin [Mass/volume] in Bloodon 07-14-5497Prbobskgpi (Bld) [Mass/Vol] Hemoglobin [Mass/volume] in Blood13.0-17.0[facility] Hemoglobin (Bld) [Mass/Vol]13.6 g/dL13.0-17.0[facility] Laboratory - Hematology and Cell countson 70-90-3483Lwdtxnnczxx (Bld) [#/Vol] 0.16 10*3/uL<0.46[facility] CenterImmature granulocytes/100 WBC (Bld)0.2 %[facility] Medical CenterLeukocytes [#/volume] corrected for nucleated erythrocytes in Blood by Automated counon 70-65-4711ZTM corrected for nucl RBC Auto (Bld) [#/Vol]Leukocytes [#/volume] corrected for nucleated erythrocytes in Blood by Automated coun3.70-11.00[facility] CenterWBC corrected for nucl RBC Auto (Bld) [#/Vol]6.03 k/uL3.70-11.00[facility] Medical CenterLymphocytes Auto (Bld) [#/Vol]on 42-63-8892Xwrodonylrk (Bld) [#/Vol]Lymphocytes [#/volume] in Blood by Automated count1.00-4.00 [facility] Medical CenterLymphocytes (Bld) [#/Vol]2.73 10*3/uL1.00-4.00 [facility] CenterLymphocytes/100 WBC Auto (Bld)on 11-03-2024 Lymphocytes/100 WBC (Bld)Lymphocytes/100 leukocytes in Blood by Automated count [facility] CenterLymphocytes/100 WBC (Bld)45.3 %[facility] TroyH Auto (RBC) [Entitic mass]on 50-66-8621UJQ (RBC) [Entitic mass]MCH [Entitic mass] by Automated count26.0-34.0[facility] TroyH (RBC) [Entitic mass]31.9 pg26.0-34.0[facility] CenterMCHC Auto (RBC) [Mass/Vol]on 75-96-9717AVKJ (RBC) [Mass/Vol]MCHC [Mass/volume] by Automated count30.5-36.0[facility] TroyHC (RBC) [Mass/Vol]34.0 g/dL30.5-36.0[facility] CenterMCV Auto (RBC) [Entitic vol]on 41-12-5139XMT (RBC) [Entitic vol]MCV [Entitic volume] by Automated count80.0-100.0[facility] Medical CenterMCV (RBC) [Entitic vol]93.9 fL80.0-100.0[facility] Medical CenterMonocytes Auto (Bld) [#/Vol]on 86-51-5584Xykfkudar (Bld) [#/Vol]Automated blood monocyte count<0.87 [facility] CenterMonocytes (Bld) [#/Vol]0.40 10*3/uL<0.87 [facility] CenterMonocytes/100 WBC Auto (Bld)on 11-03-2024 Monocytes/100 WBC (Bld)Automated monocyte %[facility] Monocytes/100 WBC (Bld)6.6 %[facility] Medical CenterNeutrophils Auto (Bld) [#/Vol]on 58-69-0388Zrdivptpzdr (Bld) [#/Vol]Neutrophils [#/volume] in Blood by Automated count1.45-7.50[facility] Medical CenterNeutrophils (Bld) [#/Vol]2.67 10*3/uL1.45-7.50[facility] Neutrophils/100 WBC Auto (Bld)on 02-68-7035Gphiasekddy/100 WBC (Bld)Automated neutrophil %[facility] CenterNeutrophils/100 WBC (Bld)44.2 % [facility] CenterNo Panel Informationon 15-05-8597Wkcsszucu Study observation (narrative)[facility] Granulocyte # (Auto)<0.03 k/uL<0.10[facility] CenterNucleated RBC Auto (Bld) [#/Vol]on 27-55-1073Ketdimxsm RBC (Bld) [#/Vol]Nucleated erythrocytes [#/volume] in Blood by Automated count<0.01[facility] CenterNucleated RBC (Bld) [#/Vol]10*3/uL<0.01[facility] CenterNucleated erythrocytes [Presence] in Blood by Automated counton 41-98-3872Ibicuesar RBC Auto Ql (Bld) Nucleated erythrocytes [Presence] in Blood by Automated countUniversity Hospitals Lake West Medical CenterNucleated RBC Auto Ql (Bld)0.0 /100{WBC}[facility] Medical CenterPlatelet mean volume Auto (Bld) [Entitic vol]on 91-44-6322Swpkwgnh mean volume (Bld) [Entitic vol]Platelet mean volume [Entitic volume] in Blood by Automated count9.0-12.7FUniversity Hospitals Geauga Medical CenterPlatelet mean volume (Bld) [Entitic vol]11.0 fL9.0-12.7FUniversity Hospitals Geauga Medical CenterPlatelets Auto (Bld) [#/Vol]on 96-11-3940Ttdtapdwq (Bld) [#/Vol]Platelets [#/volume] in Blood by Automated -437WqonmcscvUniversity Hospitals Lake West Medical CenterPlatelets (Bld) [#/Vol]281 10*3/hG099-979McynjhkyaUniversity Hospitals Lake West Medical CenterRBC Auto (Bld) [#/Vol] on 08-36-7928FRJ (Bld) [#/Vol]Erythrocytes [#/volume] in Blood by Automated count4.20-6.00[facility] (Bld) [#/Vol]4.26 10*6/uL 4.20-6.00[facility] Medical CenterMR TRANSFER OF OUTSIDE FILMSon 70-58-9803KD TRANSFER OF OUTSIDE FILMSOutside images for comparison or treatment purposes, not interpreted by Radiologists.[facility]tudy Interpretation of outside studyon 10-21-2024 Outside images for comparison or treatment purposes, not interpreted by Radiologists.IMAGINGX-ray reportOrdered By: Dorothy Eubanks on 67-98-9048Wcasp reportAULTMAN ORRVILLE HOSPITAL Main [place] [address] XRay Report Signed Patient: Shantel Melendez MR#: [id number] : 1960 Acct:[id number] Age/Sex: 63 / M ADM Date: 5 Loc: XD Room: Type: [facility] Attending Dr: Solomon Narayanan PAFranC Copies to: [...] Eubanks M.D. 10/10/2024 3:02 PM Dictation Location: [place] [address] Transcribed By: [facility] 10/10/24 150 Dictated By: Dorothy Eubanks MD 10/10/24 1451 Signed By: 10/10/24 1506 [facility] Work Phone: XR cervical spine 2Von [id number] cervical spine 2V [facility] Main [facility] [address] [place] [address] XRay Report Signed Patient: Shantel Melendez MR#: [id number] : 1960 Acct:[id number] Age/Sex: 63 / M ADM Date: 10/10/24 Loc: XD Room: Type: [facility] Attending Dr: Solomon Narayanan PA-C [...] Eubanks M.D. 10/10/2024 3:02 PM Dictation Location: [place] [address] Transcribed By: [facility] 10/10/24 150 Dictated By: Dorothy Eubanks MD 10/10/24 1455 Signed By: 10/10/24 1502[facility] GroupAlanine aminotransferase [Enzymatic activity/volume] in Serum or PlasmaOrdered By: Griselda Krause on 29-34-9697INB [Catalytic activity/Vol]Alanine aminotransferase [Enzymatic activity/volume] in Serum or PlasmaLow7-52[facility] Albumin [Mass/volume] in Serum or Plasma by Bromocresol green (BCG) dye binding methoOrdered By: Griselda Krause on 25-07-5174Incoubr BCG dye [Mass/Vol]Albumin [Mass/volume] in Serum or Plasma by Bromocresol green (BCG) dye binding methoLow 3.5-5.7FUniversity Hospitals Geauga Medical CenterAlkaline phosphatase [Enzymatic activity/volume] in Serum or PlasmaOrdered By: Griselda Krause on 77-64-1577EDQ [Catalytic activity/Vol]Alkaline phosphatase [Enzymatic activity/volume] in Serum or Fezmqw33-896BvxbysemuUniversity Hospitals Lake West Medical CenterAspartate aminotransferase [Enzymatic activity/volume] in Serum or PlasmaOrdered By: Griselda Krause on 22-61-6083OCR [Catalytic activity/Vol]Aspartate aminotransferase [Enzymatic activity/volume] in Serum or GrpxgqOgd95-80KdjeurcduUniversity Hospitals Lake West Medical Center Basophils Auto (Bld) [#/Vol]Ordered By: Griselda Krause on 69-93-1666Mzonxgwuj (Bld) [#/Vol]Automated basophil count0.0-0.2FUniversity Hospitals Geauga Medical Center Basophils/100 WBC Auto (Bld)Ordered By: Griselda Krause on 98-60-7708Oqjhyccnn/100 WBC (Bld)Automated basophil %.[facility] Medical CenterBilirubin.total [Mass/volume] in Serum or PlasmaOrdered By: Griselda Krause on 70-07-7282Qlgampyeg [Mass/Vol]Bilirubin.total [Mass/volume] in Serum or Plasma0.3-1.0[facility] Medical CenterCalcium [Mass/volume] in Serum or PlasmaOrdered By: Griselda Krause on 41-24-1851Zdnovas [Mass/Vol]Calcium [Mass/volume] in Serum or Plasma 8.6-10.3FUniversity Hospitals Geauga Medical CenterCarbon dioxide, total [Moles/volume] in Serum or PlasmaOrdered By: Griselda Krause on 36-23-1184WA2 [Moles/Vol]Carbon dioxide, total [Moles/volume] in Serum or Sektja93.0-31.0[facility] CenterChloride [Moles/volume] in Serum or PlasmaOrdered By: Griselda Krause on 96-85-2581Udfjwedl [Moles/Vol]Chloride [Moles/volume] in Serum or Plasma 98-107[facility] CenterCholesterol [Mass/volume] in Serum or PlasmaOrdered By: Griselda Krause 10-60-2785Ownbpmzvpey [Mass/Vol]Cholesterol [Mass/volume] in Serum or WnqaxyBmqt975-987RulbefivoUniversity Hospitals Lake West Medical Center Comment on above:Chol less than 200 mg/dl low riskChol 201-239 mg/dl borderline riskChol 240 mg/dl and greater high riskCholesterol in HDL [Mass/volume] in Serum or PlasmaOrdered By: Griselda Krause 36-37-9410Yflhergdfsc in HDL [Mass/Vol] Serum or plasma high density lipoprotein (HDL) cholesterol zaolqzixvst86-99 [facility] Medical CenterComment on above:HDL CHOL ATP-III CLASSIFICATION Cardiovascular RiskHDL > or equal to 60 mg/dL LOWHDL < 40 mg/dL HIGHCholesterol in LDL Calc [Mass/Vol]Ordered By: Griselda Krause on 10-07-2024 Cholesterol in LDL [Mass/Vol]Cholesterol in LDL [Mass/volume] in Serum or Plasma by calculationHigh0-100[facility] Medical CenterComment on above:LDL ATP III CLASSIFICATIONLDL less than 100 mg/dL OptimalLDL 100-129 mg/dL Near or above fxcoutgKBT473-178 mg/dL Borderline highLDL 160-189 mg/dL HighLDL greater than 189 mg/dL Very highCholesterol in VLDL Calc [Mass/Vol]Ordered By: Griselda Krause 26-30-3491Mzgsccbsmsw in VLDL [Mass/Vol]Cholesterol in VLDL [Mass/volume] in Serum or Plasma by calculationGerman Hospital Medical Center Clostridioides difficile toxin B tcdB gene [Presence] in Stool by JER with probe deteOrdered By: Manisha Negron on 10-07-2024. difficile toxin B tcdB gene JER+probe Ql (Stl)Clostridioides difficile toxin B tcdB gene [Presence] in Stool by JER with probe deteNegatSelect Medical Specialty Hospital - ColumbusComment on above:Testing performed by RT-PCRClostridium Difficileon 77-34-8332Iagrgrbhhum DifficileNegativeNormalNegativeThe [facility] Physician GroupComment on above: Result Comment: Testing performed by RT-PCR PERFORMED BY: [place] [address] PATHOLOGIST CLOTH HAND RAKEL LAZARO M.D.Performed By: #### CDT #### [place] [address] USAComplete Blood Count Auto Diffon 37-93-3655Wuzposwty (Bld) [#/Vol]0.0 10*3/uLNormal0.0-0.2The [facility] Physician GroupComment on above: Result Comment: PERFORMED BY: [place] [address] PATHOLOGIST CLOTH HAND RAKEL LAZARO M.D.Performed By: #### CBC, HEPATIC, BMP, LIPASE #### [place] [address] USABasophils/100 WBC (Bld)0.8 %Normal.The [facility] Physician GroupComment on above:Performed By: #### CBC, HEPATIC, BMP, LIPASE #### [place] [address] USAEosinophils (Bld) [#/Vol]0.0 10*3/uLNormal0.0-0.45The [facility] Physician GroupComment on above:Performed By: #### CBC, HEPATIC, BMP, LIPASE #### [place] [address] USAEosinophils/100 WBC (Bld)0.8 %Normal.The [facility] Physician GroupComment on above:Performed By: #### CBC, HEPATIC, BMP, LIPASE #### [place] [address] USAErythrocyte distribution width (RBC) [Ratio]13.7 %Normal 12.0-14.8The [facility] Physician GroupComment on above:Performed By: #### CBC, HEPATIC, BMP, LIPASE #### [place] [address] USAHematocrit (Bld) [Volume fraction]36.6 %Low38.8-50.0The [facility] Physician GroupComment on above:Performed By: #### CBC, HEPATIC, BMP, LIPASE #### [place] [address] USAHemoglobin (Bld) [Mass/Vol]12.8 g/dLLow13.0-17.0The [facility] Physician GroupComment on above:Performed By: #### CBC, HEPATIC, BMP, LIPASE #### [place] [address] USALymphocytes (Bld) [#/Vol]1.7 10*3/uLNormal1.00-4.8The [facility] Physician GroupComment on above:Performed By: #### CBC, HEPATIC, BMP, LIPASE #### [place] [address] USALymphocytes/100 WBC (Bld)31.1 %Normal.The [facility] Physician GroupComment on above:Performed By: #### CBC, HEPATIC, BMP, LIPASE #### [place] [address] USAMCH (RBC) [Entitic mass]32.4 nqRwtceu95.5-35.2The [facility] Physician GroupComment on above:Performed By: #### CBC, HEPATIC, BMP, LIPASE #### [place] [address] USAMCV (RBC) [Entitic vol]92.8 wGPlsdoh84.5-101The [facility] Physician GroupComment on above:Performed By: #### CBC, HEPATIC, BMP, LIPASE #### [place] [address] USAMean Corpuscular HGB Conc34.9 g/cQRhmgfc85.5-35.6The [facility] Physician GroupComment on above:Performed By: #### CBC, HEPATIC, BMP, LIPASE #### [place] [address] USAMonocytes (Bld) [#/Vol]0.3 10*3/uLNormal0.0-0.8The [facility] Physician GroupComment on above:Performed By: #### CBC, HEPATIC, BMP, LIPASE #### [place] [address] USAMonocytes/100 WBC (Bld)4.9 %Normal.The [facility] Physician GroupComment on above:Performed By: #### CBC, HEPATIC, BMP, LIPASE #### [place] [address] USANeutrophils (Bld) [#/Vol]3.4 10*3/uLNormal1.8-7.7The [facility] Physician GroupComment on above:Performed By: #### CBC, HEPATIC, BMP, LIPASE #### [place] [address] USANeutrophils/100 WBC (Bld)62.4 %Normal.The [facility] Physician GroupComment on above:Performed By: #### CBC, HEPATIC, BMP, LIPASE #### [place] [address] USANRBC%0.0 /100{WBC}Normal0-0.5The [facility] Comment on above:Performed By: #### CBC, HEPATIC, BMP, LIPASE #### [place] [address] USAPlatelet mean volume (Bld) [Entitic vol]8.8 fLNormal 6.6-10.1The [facility] Physician GroupComment on above:Performed By: #### CBC, HEPATIC, BMP, LIPASE #### [place] [address] USAPlatelets (Bld) [#/Vol]343 10*3/dJZmjewj988-315Abv [facility] Physician GroupComment on above:Performed By: #### CBC, HEPATIC, BMP, LIPASE #### [place] [address] USARBC (Bld) [#/Vol]3.94 10*6/uLNormal3.90-5.60The [facility] Physician GroupComment on above:Performed By: #### CBC, HEPATIC, BMP, LIPASE #### [place] [address] USAWBC (Bld) [#/Vol]5.5 10*3/uLNormal4.1-10.5The [facility] Physician GroupComment on above:Performed By: #### CBC, HEPATIC, BMP, LIPASE #### [place] [address] USAComprehensive Metabolic Panelon 87-57-3083Wwuqftm [Mass/Vol]3.4 g/dLLow3.5-5.7The [facility] Physician GroupComment on above: Performed By: #### CBC, HEPATIC, BMP, LIPASE #### [place] [address] USAAlbumin/Globulin [Mass ratio]1.8 {ratio}NormalThe [facility] Physician GroupComment on above:Performed By: #### CBC, HEPATIC, BMP, LIPASE #### [facility] [address] [place] [address] USAALP [Catalytic activity/Vol]62 U/QHfpuru43-233Ana [facility] Physician GroupComment on above:Performed By: #### CBC, HEPATIC, BMP, LIPASE #### [facility] [address] [place] [address] USAALT [Catalytic activity/Vol]6 U/LLow7-52The [facility] Physician GroupComment on above:Performed By: #### CBC, HEPATIC, BMP, LIPASE #### [place] [address] USAAnion gap [Moles/Vol]9.7 mmol/LNormal6.0-15.0The [facility] Physician GroupComment on above:Performed By: #### CBC, HEPATIC, BMP, LIPASE #### [place] [address] USAAST [Catalytic activity/Vol]8 U/NNne98-38Icy [facility] Physician GroupComment on above:Performed By: #### CBC, HEPATIC, BMP, LIPASE #### [place] [address] USABilirubin [Mass/Vol]0.6 mg/dLNormal0.3-1.0The [facility] Physician GroupComment on above:Performed By: #### CBC, HEPATIC, BMP, LIPASE #### [place] [address] USACalcium [Mass/Vol]9.3 mg/dLNormal8.6-10.3The [facility] Physician GroupComment on above:Performed By: #### CBC, HEPATIC, BMP, LIPASE #### [place] [address] USAChloride [Moles/Vol]103 mmol/FRlrqoh65-887Wyv [facility] Physician GroupComment on above:Performed By: #### CBC, HEPATIC, BMP, LIPASE #### [place] [address] USACO2 [Moles/Vol]29.1 mmol/FSdyfpy37.0-31.0The [facility] Physician GroupComment on above:Performed By: #### CBC, HEPATIC, BMP, LIPASE #### [place] [address] USACreatinine [Mass/Vol]0.74 mg/dLNormal0.70-1.30The [facility] Physician GroupComment on above:Performed By: #### CBC, HEPATIC, BMP, LIPASE #### [place] [address] USAGFR/1.73 sq M.predicted MDRD (S/P/Bld) [Vol rate/Area] mL/min/{1.73_m2}NormalThe [facility] Physician GroupComment on above:Performed By: #### CBC, HEPATIC, BMP, LIPASE #### [facility] [address] [place] [address] USAGlobulin (S) [Mass/Vol]1.9 g/dLNormalThe [facility] Physician GroupComment on above:Performed By: #### CBC, HEPATIC, BMP, LIPASE #### [facility] [address] [place] [address] USAGlucose [Mass/Vol]84 mg/uUCgpmem14-243Vnr [facility] Physician GroupComment on above:Result Comment: Random Glucose Reference Range is dependent on time and content of last meal. Glucose of more than 200 mg/dL in a nonstressed, ambulatory subject supports the diagnosis of Diabetes Mellitus. ADA recommended reference rangePerformed By: #### CBC, HEPATIC, BMP, LIPASE #### [facility] [address] [place] [address] USAPotassium [Moles/Vol]4.8 mmol/LNormal3.5-5.1The [facility] Physician GroupComment on above:Performed By: #### CBC, HEPATIC, BMP, LIPASE #### [facility] [address] [place] [address] USAProtein [Mass/Vol]5.3 g/dLLow6.4-8.9The [facility] Physician GroupComment on above:Performed By: #### CBC, HEPATIC, BMP, LIPASE #### [facility] [address] [place] [address] USASodium [Moles/Vol]137 mmol/PNivgtm206-182Xxm [facility] Physician GroupComment on above:Performed By: #### CBC, HEPATIC, BMP, LIPASE #### [facility] [address] [place] [address] USAUrea nitrogen [Mass/Vol]7 mg/dLNormal7-25The [facility] Physician GroupComment on above:Performed By: #### CBC, HEPATIC, BMP, LIPASE #### [facility] [address] [place] [address] USACreatinine [Mass/volume] in Serum or PlasmaOrdered By: Griselda Krause on 21-36-3907Fxiqkzkpov [Mass/Vol]Creatinine [Mass/volume] in Serum or Plasma0.70-1.30[facility] CenterEosinophils Auto (Bld) [#/Vol]Ordered By: Griselda Krause on 53-44-4970Ieplypmguer (Bld) [#/Vol]Automated eosinophil count0.0-0.45[facility] CenterEosinophils/100 WBC Auto (Bld)Ordered By: Griselda Krause on 85-54-3956Gokghqesntu/100 WBC (Bld)Automated eosinophil %.[facility] CenterErythrocyte distribution width Auto (RBC) [Ratio]Ordered By: Griselda Krause on 03-92-1196Gkjzppslswh distribution width (RBC) [Ratio]Erythrocyte distribution width [Ratio] by Automated count 12.0-14.8[facility] Medical CenterGlobulin Calc (S) [Mass/Vol]Ordered By: Griselda Krause on 08-06-6087Rsudcktv (S) [Mass/Vol]Serum globulin measurement by calculation (mass/volume)[facility] CenterGlucose [Mass/volume] in Serum or PlasmaOrdered By: Griselda Krause on 67-51-2662Mendhjd [Mass/Vol]Glucose [Mass/volume] in Serum or Wsrfyp12-229MxsntykxhUniversity Hospitals Lake West Medical CenterComment on above:ADA recommended reference rangeRandom Glucose Reference Range is dependent on time and content of last meal. Glucose of more than 200 mg/dL in a nonstressed, ambulatory subject supports the diagnosisof Diabetes Mellitus. Hematocrit Auto (Bld) [Volume fraction]Ordered By: Griselda Krause on 10-07-2024 Hematocrit (Bld) [Volume fraction]Hematocrit [Volume Fraction] of Blood by Automated fdhcbMyl53.8-50.0[facility] CenterHemoglobin [Mass/volume] in BloodOrdered By: Griselda Krause on 49-24-9658Qjhjxttjsi (Bld) [Mass/Vol]Hemoglobin [Mass/volume] in WjfteMfv41.0-17.0[facility] CenterLeukocytes [#/volume] corrected for nucleated erythrocytes in Blood by Automated counOrdered By: Griselda Krause on 88-81-9594CMW corrected for nucl RBC Auto (Bld) [#/Vol]Leukocytes [#/volume] corrected for nucleated erythrocytes in Blood by Automated coun4.1-10.5FUniversity Hospitals Geauga Medical Center Lipid Panelon 51-44-2947Mzwmscypllq [Mass/Vol]204 mg/kXPbpu471-121Lbh [facility] Physician GroupComment on above:Result Comment: Chol less than 200 mg/dl low risk Chol 201-239 mg/dl borderline risk Chol 240 mg/dl and greater high riskPerformed By: #### CBC, HEPATIC, BMP, LIPASE #### [facility] [address] [place] [address] USACholesterol in HDL [Mass/Vol]35 mg/xYBgmgxc78-07Eii [facility] Physician GroupComment on above:Result Comment: HDL CHOL ATP-III CLASSIFICATION Cardiovascular Risk HDL > or equal to 60 mg/dL LOW HDL < 40 mg/dL HIGHPerformed By: #### CBC, HEPATIC, BMP, LIPASE #### [facility] [address] [place] [address] USACholesterol.total/Cholesterol in HDL [Mass ratio]5.8 {ratio}Normal<5.0The [facility] Physician GroupComment on above:Performed By: #### CBC, HEPATIC, BMP, LIPASE #### [facility] [address] [place] [address] USALDL Cholesterol,Dfpgsutnec614 mg/dLHigh0-100The [facility] Physician GroupComment on above:Result Comment: LDL ATP III CLASSIFICATION LDL less than 100 mg/dL Optimal LDL 100-129 mg/dL Near or above optimal LDL 130-159 mg/dL Borderline high LDL 160-189 mg/dL High LDL greater than 189 mg/dL Very highPerformed By: #### CBC, HEPATIC, BMP, LIPASE #### [facility] [address] [place] [id number] USATriglyceride w/Jsttmw393 mg/dLNormal0-149The [facility] Physician GroupComment on above:Result Comment: TRIG ATP III CLASSIFICATION TRIG less than 150 mg/dL Normal TRIG 150-199 mg/dL Borderline high TRIG 200-500 mg/dL High TRIG greater than 500 mg/dL Very high Standard traceable to the Center for Disease Conrtrol and Prevention (CDC) test method.Performed By: #### CBC, HEPATIC, BMP, LIPASE #### [facility] [address] [place] [id number] USAVLDL KVLTHQOOHYX98 mg/dLNoCone Health Physician GroupComment on above:Performed By: #### CBC, HEPATIC, BMP, LIPASE #### [facility] [address] [place] [address] USALymphocytes Auto (Bld) [#/Vol]Ordered By: Griselda Krause on 49-14-9933Megiepxwroy (Bld) [#/Vol]Lymphocytes [#/volume] in Blood by Automated count1.00-4.8[facility] Medical CenterLymphocytes/100 WBC Auto (Bld) Ordered By: Griselda Krause on 95-62-8435Tztmykiazmh/100 WBC (Bld)Lymphocytes/100 leukocytes in Blood by Automated count.[facility] TroyH Auto (RBC) [Entitic mass]Ordered By: Griselda Krause on 12-20-0554QDV (RBC) [Entitic mass]MCH [Entitic mass] by Automated count27.5-35.2FUniversity Hospitals Geauga Medical CenterMCHC Auto (RBC) [Mass/Vol]Ordered By: Griselda Krause on 57-88-1186LODT (RBC) [Mass/Vol]MCHC [Mass/volume] by Automated count32.5-35.6FUniversity Hospitals Geauga Medical CenterMCV Auto (RBC) [Entitic vol]Ordered By: Griselda Krause on 10-07-2024 MCV (RBC) [Entitic vol]MCV [Entitic volume] by Automated count83.5-101[facility] CenterMonocytes Auto (Bld) [#/Vol]Ordered By: Griselda Krause on 58-33-4389Tzkcysreu (Bld) [#/Vol]Automated blood monocyte count0.0-0.8[facility] CenterMonocytes/100 WBC Auto (Bld)Ordered By: Griselda Krause on 13-46-4027Spdszuxvr/100 WBC (Bld)Automated monocyte %.[facility] Medical CenterNeutrophils Auto (Bld) [#/Vol]Ordered By: Griselda Krause on 10-07-2024 Neutrophils (Bld) [#/Vol]Neutrophils [#/volume] in Blood by Automated count 1.8-7.7FUniversity Hospitals Geauga Medical CenterNeutrophils/100 WBC Auto (Bld)Ordered By: Griselda Krause on 98-05-9887Sdpwzgsbgrd/100 WBC (Bld)Automated neutrophil %. [facility] CenterNo Panel InformationOrdered By: Griselda Krause on 56-55-1862Suryasygz GFR (CKD-EPI)> 60.0 mL/MinUniversity Hospitals Lake West Medical Center Pharmacy Creatinine Clearance (ChemN/AFUniversity Hospitals Geauga Medical CenterNucleated erythrocytes [Presence] in Blood by Automated countOrdered By: Griselda Krause on 97-42-5511Sotxlbbhm RBC Auto Ql (Bld)Nucleated erythrocytes [Presence] in Blood by Automated count0-0.5FUniversity Hospitals Geauga Medical CenterPSA Screen (Yearly Only) on 33-71-8281OLM Screen (Yearly Only)0.670 ng/mLNormal0.000-4.000The [facility] Physician GroupComment on above:Result Comment: Serial tumor marker results determined by assays using different manufacturers or methods may not be comparable. [facility] software quality tester and method: [employer] DXI, CHEMILUMINESCENT IMMUNOASSAY. PERFORMED BY: [place] [address] PATHOLOGIST CLOTH HAND RAKEL LAZARO M.D.Performed By: #### CBC, HEPATIC, BMP, LIPASE #### [place] [address] USAPlatelet mean volume Auto (Bld) [Entitic vol]Ordered By: Griselda Krause on 54-43-5883Pqjcjcvo mean volume (Bld) [Entitic vol]Platelet mean volume [Entitic volume] in Blood by Automated count6.6-10.1FUniversity Hospitals Geauga Medical CenterPlatelets Auto (Bld) [#/Vol]Ordered By: Griselda Krause on 10-07-2024 Platelets (Bld) [#/Vol]Platelets [#/volume] in Blood by Automated -724 [facility] Medical CenterPotassium [Moles/volume] in Serum or Plasma Ordered By: Griselda Krause on 24-86-1860Reckdsxlw [Moles/Vol]Potassium [Moles/volume] in Serum or Plasma3.5-5.1FUniversity Hospitals Geauga Medical Center Prostate specific Ag [Mass/volume] in Serum or PlasmaOrdered By: Griselda Krause on 56-66-4064Jaxffgqe specific Ag [Mass/Vol]Prostate specific Ag [Mass/volume] in Serum or Plasma0.000-4.000[facility] Medical CenterComment on above: Serial tumor marker results determined by assays using different manufacturers or methods may not be comparable.[facility] software quality tester and method:[employer] DXI, CHEMILUMINESCENT IMMUNOASSAY.Protein [Mass/volume] in Serum or PlasmaOrdered By: Griselda Krause on 98-28-6890Dqxdfxi [Mass/Vol]Protein [Mass/volume] in Serum or PlasmaLow6.4-8.9[facility] Medical CenterRBC Auto (Bld) [#/Vol]Ordered By: Griselda Krause on 81-35-7332GWR (Bld) [#/Vol] Erythrocytes [#/volume] in Blood by Automated count3.90-5.60City Hospitalerum or plasma albumin/globulin mass ratioOrdered By: Griselda Krause on 8513Peanmgf/Globulin [Mass ratio]Serum or plasma albumin/globulin mass ratioCity Hospitalerum or plasma anion gap determination Ordered By: Griselda Krause on 85-63-9130Wpjya gap [Moles/Vol]Serum or plasma anion gap determination6.0-15.0City Hospitalerum or plasma total cholesterol/high density lipoprotein (HDL) cholesterol mass ratOrdered By: Griselda Krause on 91-44-1831Rxxnrghilhw.total/Cholesterol in HDL [Mass ratio]Serum or plasma total cholesterol/high density lipoprotein (HDL) cholesterol mass rat<5.0 City Hospitalodium [Moles/volume] in Serum or PlasmaOrdered By: Griselda Krause on 90-54-8433Dmtqjj [Moles/Vol]Sodium [Moles/volume] in Serum or Jiuazv062-423UqzjrsezvUniversity Hospitals Lake West Medical CenterThyroid Stimulating Hormoneon 33-96-5199DJU Qn1.03 m[IU]/LNormal0.45-5.33The [facility] Physician GroupComment on above:Result Comment: PERFORMED BY: [address] [place] [address] PATHOLOGIST CLOTH HAND RAKEL LAZARO M.D.Performed By: #### CBC, HEPATIC, BMP, LIPASE #### [facility] [address] [place] [address] USAThyrotropin [Units/volume] in Serum or PlasmaOrdered By: Griselda Krause on 18-39-9790OVA QnThyrotropin [Units/volume] in Serum or Plasma 0.45-5.33[facility] Medical CenterTriglyceride [Mass/volume] in Serum or PlasmaOrdered By: Griselda Krause on 56-11-3389Diifgfljuuyf [Mass/Vol]Triglyceride [Mass/volume] in Serum or Plasma0-149[facility] Medical CenterComment on above:TRIG ATP III CLASSIFICATIONTRIG less than 150 mg/dL NormalTRIG 150-199 mg/dL Borderline highTRIG 200-500 mg/dL High TRIG greater than 500 mg/dL Very highStandard traceable to the Center for Disease Conrtrol and Prevention (CDC) test method.Urea nitrogen [Mass/volume] in Serum or PlasmaOrdered By: Griselda Krause on 74-05-2121Vaeu nitrogen [Mass/Vol]Urea nitrogen [Mass/volume] in Serum or Plasma7-[facility] Medical CenterWBC Auto (Bld) [#/Vol]Ordered By: Griselda Krause on 71-94-0864QFR (Bld) [#/Vol]Leukocytes [#/volume] in Blood by Automated count4.1-10.5FUniversity Hospitals Geauga Medical CenterAlanine aminotransferase [Enzymatic activity/volume] in Serum or PlasmaOrdered By: PROVIDER TEMP on 92-78-6339JVV [Catalytic activity/Vol]Alanine aminotransferase [Enzymatic activity/volume] in Serum or Plasma7-52[facility] Medical CenterAlbumin [Mass/volume] in Serum or Plasma by Bromocresol green (BCG) dye binding metho Ordered By: PROVIDER TEMP on 44-56-2641Akenbln BCG dye [Mass/Vol]Albumin [Mass/volume] in Serum or Plasma by Bromocresol green (BCG) dye binding metho 3.5-5.7FUniversity Hospitals Geauga Medical CenterAlkaline phosphatase [Enzymatic activity/volume] in Serum or PlasmaOrdered By: PROVIDER TEMP on 60-97-5093IJZ [Catalytic activity/Vol]Alkaline phosphatase [Enzymatic activity/volume] in Serum or Cmqenp97-315DhkrmbkxsUniversity Hospitals Lake West Medical CenterAppearance of UrineOrdered By: Manisha Negron on 35-75-2073Lmdhddmaiv (U)Urine appearanceCleMercy Health – The Jewish HospitalAspartate aminotransferase [Enzymatic activity/volume] in Serum or PlasmaOrdered By: PROVIDER TEMP on 06-45-9201RAC [Catalytic activity/Vol]Aspartate aminotransferase [Enzymatic activity/volume] in Serum or HtqokvSdz43-26NobrhtfrsUniversity Hospitals Lake West Medical CenterBacteria [Presence] in Urine by AutomatedOrdered By: Manisha Negron on 59-38-3347Pjpdtheb Auto Ql (U)Bacteria [Presence] in Urine by AutomatedNone SeenUniversity Hospitals Lake West Medical CenterBasic Metabolic Panelon 78-60-4429Ptlyd gap [Moles/Vol]8.5 mmol/LNormal6.0-15.0The [facility] Physician GroupComment on above:Performed By: #### CBC, HEPATIC, BMP, LIPASE #### [facility] [address] [place] [address] USACalcium [Mass/Vol]9.5 mg/dLNormal8.6-10.3The [facility] Physician GroupComment on above:Performed By: #### CBC, HEPATIC, BMP, LIPASE #### [facility] [address] [place] [address] USAChloride [Moles/Vol]104 mmol/TIcpuiu41-749Cfl [facility] Physician GroupComment on above:Performed By: #### CBC, HEPATIC, BMP, LIPASE #### [facility] [address] [place] [id number] USACO2 [Moles/Vol]28.3 mmol/XGobvyy83.0-31.0The [facility] Physician GroupComment on above:Performed By: #### CBC, HEPATIC, BMP, LIPASE #### [facility] [address] [place] [address] USACreatinine [Mass/Vol]0.82 mg/dLNormal0.70-1.30The [facility] Physician GroupComment on above:Performed By: #### CBC, HEPATIC, BMP, LIPASE #### [facility] [address] [place] [address] USACreatinine Clr Calc Gxidcflf07.52NormalThe [facility] Physician GroupComment on above:Performed By: #### CBC, HEPATIC, BMP, LIPASE #### [facility] [address] [place] [address] USAGFR/1.73 sq M.predicted MDRD (S/P/Bld) [Vol rate/Area] mL/min/{1.73_m2}NormalThe [facility] Physician GroupComment on above:Performed By: #### CBC, HEPATIC, BMP, LIPASE #### [facility] [address] [place] [address] USAGlucose [Mass/Vol]86 mg/oDWwsfnv79-024Rxt [facility] Physician GroupComment on above:Result Comment: Random Glucose Reference Range is dependent on time and content of last meal. Glucose of more than 200 mg/dL in a nonstressed, ambulatory subject supports the diagnosis of Diabetes Mellitus. ADA recommended reference rangePerformed By: #### CBC, HEPATIC, BMP, LIPASE #### [facility] [address] [place] [address] USAPotassium [Moles/Vol]4.8 mmol/LNormal3.5-5.1The [facility] Physician GroupComment on above:Performed By: #### CBC, HEPATIC, BMP, LIPASE #### [facility] [address] [place] [address] USASodium [Moles/Vol]136 mmol/YPzzbdc243-593Isp [facility] Physician GroupComment on above:Performed By: #### CBC, HEPATIC, BMP, LIPASE #### [facility] [address] [place] [address] USAUrea nitrogen [Mass/Vol]9 mg/dLNormal7-25The [facility] Physician GroupComment on above:Performed By: #### CBC, HEPATIC, BMP, LIPASE #### [facility] [address] [place] [address] USABasophils Auto (Bld) [#/Vol]Ordered By: PROVIDER TEMP on 55-15-5986Iklxviyqu (Bld) [#/Vol]Automated basophil count0.0-0.2FUniversity Hospitals Geauga Medical CenterBasophils/100 WBC Auto (Bld)Ordered By: PROVIDER TEMP on 93-87-2970Yryuuiuml/100 WBC (Bld)Automated basophil %.[facility] CenterBilirubin Test strip Ql (U)Ordered By: Manisha Negron on 10-06-2024 Bilirubin Ql (U)Bilirubin.total [Presence] in Urine by Test stripNegative [facility] CenterBilirubin.direct [Mass/volume] in Serum or PlasmaOrdered By: PROVIDER TEMP on 70-31-1441Rbgaqzock.direct [Mass/Vol] Bilirubin.direct [Mass/volume] in Serum or Plasma0.03-0.18FUniversity Hospitals Geauga Medical CenterBilirubin.total [Mass/volume] in Serum or PlasmaOrdered By: PROVIDER TEMP on 88-39-4912Mjubvsgki [Mass/Vol]Bilirubin.total [Mass/volume] in Serum or Plasma0.3-1.0[facility] Medical CenterCT abdomen pelvis w conon 95-63-0520BA abdomen pelvis [place] [address] CT Scan Report Signed Patient: Shantel Melendez MR#: [id number] : 1960 Acct:[id number] Age/Sex: 63 / M ADM Date: 10/06/24 Loc: ER Room: Type: [facility] ER Attending Dr: Copies to: Manisha [...] Dorothy Eubanks M.D.10/06/2024 4:08 PM Dictation Location: [place] [address] Transcribed By: [facility] 10/06/24 1608 Dictated By: Dorothy Eubanks MD 10/06/24 1556 Signed By: 10/06/24 1608[facility] Physician GroupCT soft tissue neck w [facility] 57-52-8594KV soft tissue neck w [facility] [address] [place] [address] CT Scan Report Signed Patient: Shantel Melendez MR#: [id number] : 1960 Acct:[id number] Age/Sex: 63 / M ADM Date: 10/06/24 Loc: ER Room: Type: [facility] ER Attending Dr: Copies to: Manisha [...] Dorothy Eubanks M.D.10/06/2024 3:56 PM Dictation Location: [place] [address] Transcribed By: [facility] 10/06/24 1556 Dictated By: Dorothy Eubanks MD 10/06/24 1551 Signed By: 10/06/24 1556[facility] Physician GroupCalcium [Mass/volume] in Serum or PlasmaOrdered By: PROVIDER TEMP on 05-74-9858Kclyyth [Mass/Vol]Calcium [Mass/volume] in Serum or Plasma8.6-10.3FUniversity Hospitals Geauga Medical CenterCarbon dioxide, total [Moles/volume] in Serum or PlasmaOrdered By: PROVIDER TEMP on 65-00-7241SM9 [Moles/Vol]Carbon dioxide, total [Moles/volume] in Serum or Plasma 21.0-31.0[facility] CenterChloride [Moles/volume] in Serum or PlasmaOrdered By: PROVIDER TEMP on 46-59-2235Pbgvoyfj [Moles/Vol]Chloride [Moles/volume] in Serum or Afxurb80-092TqfionfhoUniversity Hospitals Lake West Medical CenterColor Auto (U)Ordered By: Manisha Negron on 82-87-4105Ftkrf (U)Color of Urine by Auto YellowUniversity Hospitals Lake West Medical CenterComplete Blood Count Auto Diffon 75-49-5571Npgwbvhkm (Bld) [#/Vol]0.1 10*3/uLNormal0.0-0.2The [facility] Physician GroupComment on above:Result Comment: PERFORMED BY: [place] [address] PATHOLOGIST CLOTH HAND RAKEL LAZARO M.D.Performed By: #### CBC, HEPATIC, BMP, LIPASE #### [place] [address] USABasophils/100 WBC (Bld)1.1 %Normal.The [facility] Physician GroupComment on above:Performed By: #### CBC, HEPATIC, BMP, LIPASE #### [facility] [address] [place] [address] USAEosinophils (Bld) [#/Vol]0.1 10*3/uLNormal0.0-0.45The [facility] Physician GroupComment on above:Performed By: #### CBC, HEPATIC, BMP, LIPASE #### [place] [address] USAEosinophils/100 WBC (Bld)0.9 %Normal.The [facility] Physician GroupComment on above:Performed By: #### CBC, HEPATIC, BMP, LIPASE #### [place] [address] USAErythrocyte distribution width (RBC) [Ratio]13.7 %Normal 12.0-14.8The [facility] Physician GroupComment on above:Performed By: #### CBC, HEPATIC, BMP, LIPASE #### [place] [address] USAHematocrit (Bld) [Volume fraction]37.0 %Low38.8-50.0The [facility] Physician GroupComment on above:Performed By: #### CBC, HEPATIC, BMP, LIPASE #### [place] [address] USAHemoglobin (Bld) [Mass/Vol]12.8 g/dLLow13.0-17.0The [facility] Physician GroupComment on above:Performed By: #### CBC, HEPATIC, BMP, LIPASE #### [place] [address] USALymphocytes (Bld) [#/Vol]2.0 10*3/uLNormal1.00-4.8The [facility] Physician GroupComment on above:Performed By: #### CBC, HEPATIC, BMP, LIPASE #### [place] [address] USALymphocytes/100 WBC (Bld)28.2 %Normal.The [facility] Physician GroupComment on above:Performed By: #### CBC, HEPATIC, BMP, LIPASE #### [place] [address] USAMCH (RBC) [Entitic mass]32.0 qiWokeec96.5-35.2The [facility] Physician GroupComment on above:Performed By: #### CBC, HEPATIC, BMP, LIPASE #### [place] [address] USAMCV (RBC) [Entitic vol]92.6 zUZwefni91.5-101The [facility] Physician GroupComment on above:Performed By: #### CBC, HEPATIC, BMP, LIPASE #### [place] [address] USAMean Corpuscular HGB Conc34.6 g/zYGamyav44.5-35.6The [facility] Physician GroupComment on above:Performed By: #### CBC, HEPATIC, BMP, LIPASE #### [place] [address] USAMonocytes (Bld) [#/Vol]0.4 10*3/uLNormal0.0-0.8The [facility] Physician GroupComment on above:Performed By: #### CBC, HEPATIC, BMP, LIPASE #### [place] [address] USAMonocytes/100 WBC (Bld)17.04 %Normal0.00-20.00The [facility] Physician GroupComment on above:Performed By: #### CBC, HEPATIC, BMP, LIPASE #### [place] [address] USAMonocytes/100 WBC (Bld)5.4 %Normal.The [facility] Physician GroupComment on above:Performed By: #### CBC, HEPATIC, BMP, LIPASE #### [place] [address] USANeutrophils (Bld) [#/Vol]4.7 10*3/uLNormal1.8-7.7The [facility] Physician GroupComment on above:Performed By: #### CBC, HEPATIC, BMP, LIPASE #### [place] [address] USANeutrophils/100 WBC (Bld)64.4 %Normal.The [facility] Physician GroupComment on above:Performed By: #### CBC, HEPATIC, BMP, LIPASE #### [place] [address] USANRBC%0.1 /100{WBC}Normal0-0.5The [facility] Comment on above:Performed By: #### CBC, HEPATIC, BMP, LIPASE #### [place] [address] USAPlatelet mean volume (Bld) [Entitic vol]8.4 fLNormal 6.6-10.1The [facility] Physician GroupComment on above:Performed By: #### CBC, HEPATIC, BMP, LIPASE #### [place] [address] USAPlatelets (Bld) [#/Vol]357 10*3/cCSfcmkn930-105Dkb [facility] Physician GroupComment on above:Performed By: #### CBC, HEPATIC, BMP, LIPASE #### [address] [place] [address] USARBC (Bld) [#/Vol]3.99 10*6/uLNormal3.90-5.60The [facility] Physician GroupComment on above:Performed By: #### CBC, HEPATIC, BMP, LIPASE #### [place] [address] USAWBC (Bld) [#/Vol]7.2 10*3/uLNormal4.1-10.5The [facility] Physician GroupComment on above:Performed By: #### CBC, HEPATIC, BMP, LIPASE #### [place] [address] USACreatinine [Mass/volume] in Serum or PlasmaOrdered By: PROVIDER TEMP on 09-63-6830Cxbbrransg [Mass/Vol]Creatinine [Mass/volume] in Serum or Plasma0.70-1.30[facility] Medical CenterDipstick and Microscopicon 25-63-9596Dhqfttyiwd (U)ClearNormalClearHca [facility] Physician GroupComment on above:Order Comment: Name Collection Type:: Clean-Voided MidstreamPerformed By: #### CBC, HEPATIC, BMP, LIPASE #### [place] [address] USABacteria,UrineNone SeenNormalNone SeenThe [facility] Physician GroupComment on above:Order Comment: Name Collection Type:: Clean- Voided MidstreamPerformed By: #### CBC, HEPATIC, BMP, LIPASE #### [place] [address] USABilirubin,UrineNegativeNormalNegativeThe [facility] Physician GroupComment on above:Order Comment: Name Collection Type:: Clean- Voided MidstreamPerformed By: #### CBC, HEPATIC, BMP, LIPASE #### [place] [address] USAColor (U)YellowNormalYellowHca Florida South Tampa Hospital Physician Group Comment on above:Order Comment: Name Collection Type:: Clean-Voided Midstream Performed By: #### CBC, HEPATIC, BMP, LIPASE #### [address] [place] [address] USAGlucose Ql (U)NormalNormalNormalThe [facility] Physician GroupComment on above:Order Comment: Name Collection Type:: Clean-Voided MidstreamPerformed By: #### CBC, HEPATIC, BMP, LIPASE #### [place] [address] USAHyaline Casts,UrineNoneNormal0-8The [facility] Physician GroupComment on above:Order Comment: Name Collection Type:: Clean-Voided MidstreamPerformed By: #### CBC, HEPATIC, BMP, LIPASE #### [place] [address] USAKetones Ql (U)NegativeNormalNegativeHca [facility] Hospital Physician GroupComment on above:Order Comment: Name Collection Type:: Clean- Voided MidstreamPerformed By: #### CBC, HEPATIC, BMP, LIPASE #### [place] [address] USALeukocyte esterase Test strip Ql (U)NegativeNormalNegative The [facility] Physician GroupComment on above:Order Comment: Name Collection Type:: Clean-Voided MidstreamPerformed By: #### CBC, HEPATIC, BMP, LIPASE #### [place] [address] USAMucus,UrineRareNormalThe [facility] Physician GroupComment on above:Order Comment: Name Collection Type:: Clean-Voided MidstreamResult Comment: PERFORMED BY: [place] [address] PATHOLOGIST CLOTH HAND RAKEL LAZARO M.D.Performed By: #### CBC, HEPATIC, BMP, LIPASE #### [place] [address] USANitrite,UrineNegativeNormalNegativeHca [facility] Physician GroupComment on above:Order Comment: Name Collection Type:: Clean-Voided MidstreamPerformed By: #### CBC, HEPATIC, BMP, LIPASE #### [place] [address] USAOccult Blood,UrineTraceHighNegativeThe [facility] Physician GroupComment on above:Order Comment: Name Collection Type:: Clean-Voided MidstreamResult Comment: PERFORMED BY: [place] [address] PATHOLOGIST CLOTH HAND RAKEL LAZARO M.D.Performed By: #### CBC, HEPATIC, BMP, LIPASE #### [place] [address] USApH (U)5.5 [pH]Normal5.0-9.0The [facility] Comment on above:Order Comment: Name Collection Type:: Clean-Voided Midstream Performed By: #### CBC, HEPATIC, BMP, LIPASE #### [place] [address] USAProtein,UrineNegativeNormalNegativeThe [facility] Physician GroupComment on above:Order Comment: Name Collection Type:: Clean-Voided MidstreamPerformed By: #### CBC, HEPATIC, BMP, LIPASE #### [place] [address] USARBC,Npfyh0-2Mmrjgr4-6Rqb [facility] Physician GroupComment on above:Order Comment: Name Collection Type:: Clean-Voided MidstreamPerformed By: #### CBC, HEPATIC, BMP, LIPASE #### [place] [address] USASpecificy [place],Urine>1.021Uksu0.001-1.030The [facility] Physician GroupComment on above:Order Comment: Name Collection Type:: Clean- Voided MidstreamPerformed By: #### CBC, HEPATIC, BMP, LIPASE #### [place] [address] USASquamous Epithelial Cell,Cxcbd5-8Ulbuxs3-4Qkm [facility] Physician GroupComment on above:Order Comment: Name Collection Type:: Clean- Voided MidstreamPerformed By: #### CBC, HEPATIC, BMP, LIPASE #### [place] [address] USAUrobilinogen,UrineNormalNormalNormalThe [facility] Physician GroupComment on above:Order Comment: Name Collection Type:: Clean- Voided MidstreamPerformed By: #### CBC, HEPATIC, BMP, LIPASE #### [facility] [address] [place] [id number] USAWBC,Nzrzl0-0Zielkl2-3Iqw [facility] Physician GroupComment on above:Order Comment: Name Collection Type:: Clean-Voided MidstreamPerformed By: #### CBC, HEPATIC, BMP, LIPASE #### [facility] [address] [place] [id number] USAECG 12 lead ECGon 07-02-2638OUH 12 lead [facility]GAULT[facility] [address] [place] [address] Electrocardiograph Report Signed Patient: Shantel Melendez MR#: [id number] : 1960 Acct:[id number] Age/Sex: 63 / M ADM Date: 10/06/24 Loc: ER Room: Type: [facility] ER Attending Dr: Ordering Provider: Manisha Negron [...] now present Confirmed by Duke Kaufman DO ([id number]) on 10/06/2024 7:36:01 PM Referred By: Electronically Signed By: Duke Kaufman DO Transcribed By: MUS Signed By Duke Kaufman DO 5 1936[facility] Physician GroupEosinophils Auto (Bld) [#/Vol]Ordered By: PROVIDER TEMP on 07-90-0552Bdnoctkwgjp (Bld) [#/Vol]Automated eosinophil count0.0-0.45[facility] CenterEosinophils/100 WBC Auto (Bld) Ordered By: PROVIDER TEMP on 76-39-1163Uoiosrcjkfd/100 WBC (Bld)Automated eosinophil %.[facility] CenterEpithelial cells.squamous [#/area] in Urine sediment by Automated countOrdered By: Manisha Negron on 10-06-2024 Epithelial cells.squamous Auto (Urine sed) [#/Area]Epithelial cells.squamous [#/area] in Urine sediment by Automated count0-2FUniversity Hospitals Geauga Medical CenterErythrocyte distribution width Auto (RBC) [Ratio]Ordered By: PROVIDER TEMP on 19-02-7640Nuuhjgvqcon distribution width (RBC) [Ratio]Erythrocyte distribution width [Ratio] by Automated count12.0-14.8[facility] Medical CenterErythrocytes [#/area] in Urine sediment by Automated countOrdered By: Manisha Negron on 53-27-3298QIH Auto (Urine sed) [#/Area]Erythrocytes [#/area] in Urine sediment by Automated count0-4FUniversity Hospitals Geauga Medical CenterGlobulin Calc (S) [Mass/Vol]Ordered By: PROVIDER TEMP on 36-75-4615Johnxrcp (S) [Mass/Vol]Serum globulin measurement by calculation (mass/volume)[facility] CenterGlucose [Mass/volume] in Serum or PlasmaOrdered By: PROVIDER TEMP on 44-13-8025Enanshe [Mass/Vol]Glucose [Mass/volume] in Serum or Pxrsra50-017NltqtdecsUniversity Hospitals Lake West Medical CenterComment on above:ADA recommended reference rangeRandom Glucose Reference Range is dependent on time and content of last meal. Glucose of more than 200 mg/dL in a nonstressed, ambulatory subject supports the diagnosisof Diabetes Mellitus.Glucose [Mass/volume] in Urine by Test stripOrdered By: Manisha Negron on 73-31-7365Voksfvi Test strip (U) [Mass/Vol]Glucose [Mass/volume] in Urine by Test stripNormalUniversity Hospitals Lake West Medical CenterHematocrit Auto (Bld) [Volume fraction]Ordered By: PROVIDER TEMP on 51-55-8378Tsgsofiina (Bld) [Volume fraction]Hematocrit [Volume Fraction] of Blood by Automated aaeozNva50.8-50.0[facility] Medical CenterHemoglobin Test strip Ql (U)Ordered By: Manisha Negron on 10-06-2024 Hemoglobin Ql (U)Hemoglobin [Presence] in Urine by Test stripHighNegative [facility] CenterHemoglobin [Mass/volume] in BloodOrdered By: AMAN SAMUELS on 46-84-8126Hkkoxuxckw (Bld) [Mass/Vol]Hemoglobin [Mass/volume] in EboriHzv75.0-17.0[facility] Medical CenterHepatic Panelon 10-06-2024 Albumin [Mass/Vol]3.6 g/dLNormal3.5-5.7The [facility] Physician GroupComment on above:Performed By: #### CBC, HEPATIC, BMP, LIPASE #### [facility] [address] [place] [address] USAAlbumin/Globulin [Mass ratio]1.4 {ratio}NormalThe [facility] Physician [facility] HospitalComment on above:Performed By: #### CBC, HEPATIC, BMP, LIPASE #### [facility] [address] [place] [address] USAALP [Catalytic activity/Vol]63 U/ATjchas38-932Lvx [facility] Physician GroupComment on above:Performed By: #### CBC, HEPATIC, BMP, LIPASE #### [facility] [address] [place] [address] USAALT [Catalytic activity/Vol]7 U/LNormal7-52The [facility] Physician [facility] HospitalComment on above:Performed By: #### CBC, HEPATIC, BMP, LIPASE #### [facility] [address] [place] [id number] USAAST [Catalytic activity/Vol]8 U/NWqm56-78Jcp [facility] Physician GroupComment on above:Performed By: #### CBC, HEPATIC, BMP, LIPASE #### [facility] [address] [place] [address] USABilirubin [Mass/Vol]0.6 mg/dLNormal0.3-1.0The [facility] Physician GroupComment on above:Performed By: #### CBC, HEPATIC, BMP, LIPASE #### [facility] [address] [place] [address] USABilirubin,Indirect0.5 mg/dLNormalThe [facility] Physician GroupComment on above:Performed By: #### CBC, HEPATIC, BMP, LIPASE #### [facility] [address] [place] [address] USABilirubin.indirect [Mass/Vol]0.10 mg/dLNormal0.03-0.18The [facility] Physician GroupComment on above:Performed By: #### CBC, HEPATIC, BMP, LIPASE #### [facility] [address] [place] [address] USAGlobulin (S) [Mass/Vol]2.5 g/dLNoCone Health Physician GroupComment on above:Performed By: #### CBC, HEPATIC, BMP, LIPASE #### [facility] [address] [place] [address] USAProtein [Mass/Vol]6.1 g/dLLow6.4-8.9The [facility] Physician GroupComment on above:Performed By: #### CBC, HEPATIC, BMP, LIPASE #### [facility] [address] [place] [address] USAHyaline casts [#/area] in Urine sediment by Automated countOrdered By: Manisha Negron on 94-41-7285Fjlfcvx casts Auto (Urine sed) [#/Area]Hyaline casts [#/area] in Urine sediment by Automated count0-8[facility] Medical CenterKetones Test strip Ql (U)Ordered By: Manisha Negron on 10-48-5552Orcammh Ql (U)Ketones [Presence] in Urine by Test stripNegative [facility] CenterLeukocyte esterase [Presence] in Urine by Test stripOrdered By: Manisha Negron on 47-97-7241Yazmnheof esterase Test strip Ql (U)Leukocyte esterase [Presence] in Urine by Test stripNegativeUniversity Hospitals Lake West Medical CenterLeukocytes [#/area] in Urine sediment by Automated count Ordered By: Manisha Negron on 08-36-2093TTC Auto (Urine sed) [#/Area]Leukocytes [#/area] in Urine sediment by Automated count0-4FUniversity Hospitals Geauga Medical CenterLeukocytes [#/volume] corrected for nucleated erythrocytes in Blood by Automated counOrdered By: AMAN TEMP on 98-40-9738FYG corrected for nucl RBC Auto (Bld) [#/Vol]Leukocytes [#/volume] corrected for nucleated erythrocytes in Blood by Automated coun4.1-10.5FUniversity Hospitals Geauga Medical CenterLipaseon 21-15-9100Hyfwdc [Catalytic activity/Vol]11.0 U/LChpqco06.0-82.0The [facility] Physician GroupComment on above:Result Comment: PERFORMED BY: [facility] [address] [place] [address] PATHOLOGIST CLOTH HAND RAKEL LAZARO M.D.Performed By: #### CBC, HEPATIC, BMP, LIPASE #### [facility] [address] [place] [address] USALipase [Enzymatic activity/volume] in Serum or Plasma Ordered By: PROVIDER TEMP on 84-94-3181Vlmjuz [Catalytic activity/Vol]Lipase [Enzymatic activity/volume] in Serum or Isruwk64.0-82.0[facility] Medical CenterLymphocytes Auto (Bld) [#/Vol]Ordered By: PROVIDER TEMP on 89-44-5236Pcdekgdpmwi (Bld) [#/Vol]Lymphocytes [#/volume] in Blood by Automated count1.00-4.8[facility] Medical CenterLymphocytes/100 WBC Auto (Bld) Ordered By: PROVIDER TEMP on 12-05-6676Qujmnlhafyf/100 WBC (Bld)Lymphocytes/100 leukocytes in Blood by Automated count.[facility] TroyH Auto (RBC) [Entitic mass]Ordered By: PROVIDER TEMP on 20-84-0671PDQ (RBC) [Entitic mass]MCH [Entitic mass] by Automated count27.5-35.2FUniversity Hospitals Geauga Medical CenterMCHC Auto (RBC) [Mass/Vol]Ordered By: PROVIDER TEMP on 36-80-0225UNBD (RBC) [Mass/Vol]MCHC [Mass/volume] by Automated count32.5-35.6FUniversity Hospitals Geauga Medical CenterMCV Auto (RBC) [Entitic vol]Ordered By: PROVIDER TEMP on 61-44-1815RUN (RBC) [Entitic vol]MCV [Entitic volume] by Automated count83.5-101 [facility] CenterMonocyte distribution width [Entitic volume] in Blood by AutomatedOrdered By: PROVIDER TEMP on 47-61-1787Cumhkbon distribution width Auto (Bld) [Entitic vol]Monocyte distribution width [Entitic volume] in Blood by Automated0.00-20.00[facility] CenterMonocytes Auto (Bld) [#/Vol]Ordered By: PROVIDER TEMP on 68-90-3786Eeuknaety (Bld) [#/Vol] Automated blood monocyte count0.0-0.8[facility] Monocytes/100 WBC Auto (Bld)Ordered By: PROVIDER TEMP on 36-67-8041Upmokzmlg/100 WBC (Bld)Automated monocyte %.[facility] CenterMucus [Presence] in Urine by AutomatedOrdered By: Manisha Negron on 14-78-9328Dijrq Auto Ql (U) Mucus [Presence] in Urine by AutomatedUniversity Hospitals Lake West [facility] Center Neutrophils Auto (Bld) [#/Vol]Ordered By: PROVIDER TEMP on 39-11-1828Dwymiwepsxe (Bld) [#/Vol]Neutrophils [#/volume] in Blood by Automated count1.8-7.7FUniversity Hospitals Geauga Medical CenterNeutrophils/100 WBC Auto (Bld)Ordered By: PROVIDER TEMP on 01-57-8127Rsvwkdlkqnc/100 WBC (Bld)Automated neutrophil %.[facility] CenterNitrite Test strip Ql (U)Ordered By: Manisha Negron on 10-06-2024 Nitrite Ql (U)Nitrite [Presence] in Urine by Test stripNegativeUniversity Hospitals Lake West Medical CenterNo Panel InformationOrdered By: PROVIDER TEMP on 95-65-7659Esuhubnij GFR (CKD-EPI)> 60.0 mL/MinUniversity Hospitals Lake West Medical Center Pharmacy Creatinine Clearance (Chem91.52[facility] Nucleated erythrocytes [Presence] in Blood by Automated countOrdered By: PROVIDER TEMP on 66-54-8352Fcwcmyuac RBC Auto Ql (Bld)Nucleated erythrocytes [Presence] in Blood by Automated count0-0.5FUniversity Hospitals Geauga Medical Center Platelet mean volume Auto (Bld) [Entitic vol]Ordered By: PROVIDER TEMP on 90-78-8199Wojkjavs mean volume (Bld) [Entitic vol]Platelet mean volume [Entitic volume] in Blood by Automated count6.6-10.1FUniversity Hospitals Geauga Medical Center Platelets Auto (Bld) [#/Vol]Ordered By: PROVIDER TEMP on 95-10-9308Zosdxdbho (Bld) [#/Vol]Platelets [#/volume] in Blood by Automated noyuq491-962QpkpxtstgUniversity Hospitals Lake West Medical CenterPotassium [Moles/volume] in Serum or PlasmaOrdered By: PROVIDER TEMP on 76-50-4265Snvwgdtbq [Moles/Vol]Potassium [Moles/volume] in Serum or Plasma3.5-5.1FUniversity Hospitals Geauga Medical CenterProtein Test strip (U) [Mass/Vol]Ordered By: Manisha Negron on 39-38-2664Yqzindl (U) [Mass/Vol]Protein [Mass/volume] in Urine by Test stripNegativeUniversity Hospitals [facility] Center Protein [Mass/volume] in Serum or PlasmaOrdered By: PROVIDER TEMP on 10-06-2024 Protein [Mass/Vol]Protein [Mass/volume] in Serum or PlasmaLow6.4-8.9[facility] CenterRBC Auto (Bld) [#/Vol]Ordered By: PROVIDER TEMP on 54-20-6655EAJ (Bld) [#/Vol]Erythrocytes [#/volume] in Blood by Automated count 3.90-5.60City Hospitalerum or plasma albumin/globulin mass ratioOrdered By: PROVIDER TEMP on 87-06-4546Zmnggyr/Globulin [Mass ratio]Serum or plasma albumin/globulin mass ratioCity Hospitalerum or plasma anion gap determinationOrdered By: PROVIDER TEMP on 45-13-4028Qnuth gap [Moles/Vol]Serum or plasma anion gap determination6.0-15.0City Hospitalerum or plasma non-glucuronidated bilirubin measurement (mass/volume)Ordered By: PROVIDER TEMP on 22-98-0820Hnjmkioki.indirect [Mass/Vol]Serum or plasma non-glucuronidated bilirubin measurement (mass/volume) City Hospitalodium [Moles/volume] in Serum or PlasmaOrdered By: PROVIDER TEMP on 03-43-1344Pnwmrv [Moles/Vol]Sodium [Moles/volume] in Serum or Xzfwll031-118QdsebppzfCity Hospitalpecific gravity Test strip (U) [Rel density]Ordered By: Manisha Negron on 24-62-2710Vibdqsnb gravity (U) [Rel density]Specific gravity of Urine by Test stripHigh1.001-1.030[facility] CenterUrea nitrogen [Mass/volume] in Serum or PlasmaOrdered By: PROVIDER TEMP on 70-50-0336Hkbw nitrogen [Mass/Vol]Urea nitrogen [Mass/volume] in Serum or Plasma7-25[facility] CenterUrobilinogen Test strip (U) [Mass/Vol]Ordered By: Manisha Negron on 13-02-5612Jiqszwivngof (U) [Mass/Vol]Urobilinogen [Mass/volume] in Urine by Test stripNormalUniversity Hospitals Lake West Medical CenterWBC Auto (Bld) [#/Vol]Ordered By: PROVIDER TEMP on 34-13-7608NWI (Bld) [#/Vol]Leukocytes [#/volume] in Blood by Automated count 4.1-10.5FUniversity Hospitals Geauga Medical CenterpH Test strip (U)Ordered By: Manisha Negron on 54-47-3513cA (U)pH of Urine by Test strip5.0-9.0[facility] CenterB-Type Natriuretic Peptideon 96-66-1769Qpmmshzvvvx peptide B (Bld) [Mass/Vol]43.0 pg/mLNormal5-100The [facility] Physician GroupComment on above: Result Comment: PERFORMED BY: [address] [place] [address] PATHOLOGIST CLOTH HAND RAKEL LAZARO M.D.Performed By: #### HS TROP #### [facility] [address] [place] [address] USABasic Metabolic Panelon 26-09-8668Qanwe gap [Moles/Vol] 11.2 mmol/LNormal6.0-15.0The [facility] Physician GroupComment on above:Performed By: #### CBC, BMP, HS TROP, BNP #### [facility] [address] [place] [address] USACalcium [Mass/Vol]9.3 mg/dLNormal8.6-10.3The [facility] Physician GroupComment on above:Performed By: #### CBC, BMP, HS TROP, BNP #### [place] [address] USAChloride [Moles/Vol]100 mmol/OGuvytj38-889Kqb [facility] Physician GroupComment on above:Performed By: #### CBC, BMP, HS TROP, BNP #### [place] [address] USACO2 [Moles/Vol]26.0 mmol/BOpqusw83.0-31.0The [facility] Physician GroupComment on above:Performed By: #### CBC, BMP, HS TROP, BNP #### [place] [address] USACreatinine [Mass/Vol]0.91 mg/dLNormal0.70-1.30The [facility] Physician GroupComment on above:Performed By: #### CBC, BMP, HS TROP, BNP #### [place] [address] USACreatinine Clr Calc Quimotrc40.47NormalThe [facility] Physician GroupComment on above:Result Comment: PERFORMED BY: [place] [address] PATHOLOGIST CLOTH HAND RAKEL LAZARO M.D.Performed By: #### CBC, BMP, HS TROP, BNP #### [place] [address] USAGFR/1.73 sq M.predicted MDRD (S/P/Bld) [Vol rate/Area] mL/min/{1.73_m2}NormalThe [facility] Physician GroupComment on above:Performed By: #### CBC, BMP, HS TROP, BNP #### [place] [address] USAGlucose [Mass/Vol]100 mg/tTPisfut27-819Upb [facility] Physician GroupComment on above:Result Comment: Random Glucose Reference Range is dependent on time and content of last meal. Glucose of more than 200 mg/dL in a nonstressed, ambulatory subject supports the diagnosis of Diabetes Mellitus. ADA recommended reference rangePerformed By: #### CBC, BMP, HS TROP, BNP #### [place] [address] USAPotassium [Moles/Vol]4.2 mmol/LNormal3.5-5.1The [facility] Physician GroupComment on above:Performed By: #### CBC, BMP, HS TROP, BNP #### [place] [address] USASodium [Moles/Vol]133 mmol/JNpq024-605Sew [facility] Physician GroupComment on above:Performed By: #### CBC, BMP, HS TROP, BNP #### [place] [address] USAUrea nitrogen [Mass/Vol]18 mg/dLNormal7-25The [facility] Physician GroupComment on above:Performed By: #### CBC, BMP, HS TROP, BNP #### [place] [address] USABasophils Auto (Bld) [#/Vol]Ordered By: Daisy Paul on 10-93-7509Qiofqlers (Bld) [#/Vol]Automated basophil count0.0-0.2FUniversity Hospitals Geauga Medical CenterBasophils/100 WBC Auto (Bld)Ordered By: Daisy Paul on 65-74-8830Xzsuxrowd/100 WBC (Bld)Automated basophil %.[facility] CenterBioFire Not Detectedon 87-39-7310DclTfql Not DetectedNot detected NormalNot DetecteThe [facility] Physician GroupComment on above:Result Comment: This is a duplicate RP2.1 COVID (PCR) result to be used for statistical tracking purpose only. PERFORMED BY: [place] [address] PATHOLOGIST CLOTH HAND RAKEL LAZARO M.D.Performed By: #### HS TROP #### [place] [address] USACOVID-19 Detected/Not DetectedOrdered By: Daisy Paul on 71-00-3390MJQD-CoV-2 (COVID-19) RNA JER+non-probe Ql (Nph)Not detectedNot DetectAdena Health SystemComment on above:This is a duplicate RP2.1 COVID (PCR) result to be used for statistical tracking purpose only. Calcium [Mass/volume] in Serum or PlasmaOrdered By: Daisy Paul on 09-20-2024 Calcium [Mass/Vol]Calcium [Mass/volume] in Serum or Plasma8.6-10.3FUniversity Hospitals Geauga Medical CenterCarbon dioxide, total [Moles/volume] in Serum or Plasma Ordered By: Daisy Paul on 39-28-1902RC2 [Moles/Vol]Carbon dioxide, total [Moles/volume] in Serum or Hmjmtu82.0-31.0[facility] Chloride [Moles/volume] in Serum or PlasmaOrdered By: Daisy Paul on 00-88-7496Xkkwolmk [Moles/Vol]Chloride [Moles/volume] in Serum or Bryyhz08-976 [facility] CenterComplete Blood Count Auto Diffon 09-20-2024 Basophils (Bld) [#/Vol]0.0 10*3/uLNormal0.0-0.2The [facility] Comment on above:Result Comment: PERFORMED BY: [place] [address] PATHOLOGIST CLOTH HAND RAKEL LAZARO M.D.Performed By: #### CBC, BMP, HS TROP, BNP #### [place] [address] USABasophils/100 WBC (Bld)0.5 %Normal.The [facility] Physician GroupComment on above:Performed By: #### CBC, BMP, HS TROP, BNP #### [place] [address] USAEosinophils (Bld) [#/Vol]0.0 10*3/uLNormal0.0-0.45The [facility] Physician GroupComment on above:Performed By: #### CBC, BMP, HS TROP, BNP #### [place] [address] USAEosinophils/100 WBC (Bld)0.1 %Normal.The [facility] Physician GroupComment on above:Performed By: #### CBC, BMP, HS TROP, BNP #### [place] [address] USAErythrocyte distribution width (RBC) [Ratio]13.9 %Normal 12.0-14.8The [facility] Physician GroupComment on above:Performed By: #### CBC, BMP, HS TROP, BNP #### [place] [address] USAHematocrit (Bld) [Volume fraction]41.1 %Yimokr80.8-50.0The [facility] Physician GroupComment on above:Performed By: #### CBC, BMP, HS TROP, BNP #### [place] [address] USAHemoglobin (Bld) [Mass/Vol]14.1 g/lWVikcth18.0-17.0The [facility] Physician GroupComment on above:Performed By: #### CBC, BMP, HS TROP, BNP #### [place] [address] USALymphocytes (Bld) [#/Vol]1.1 10*3/uLNormal1.00-4.8The [facility] Physician GroupComment on above:Performed By: #### CBC, BMP, HS TROP, BNP #### [place] [address] USALymphocytes/100 WBC (Bld)11.5 %Normal.The [facility] Physician GroupComment on above:Performed By: #### CBC, BMP, HS TROP, BNP #### [place] [address] USAMCH (RBC) [Entitic mass]32.1 mgZjcuol59.5-35.2The [facility] Physician GroupComment on above:Performed By: #### CBC, BMP, HS TROP, BNP #### [place] [address] USAMCV (RBC) [Entitic vol]93.6 uQKsoowv58.5-101The [facility] Physician GroupComment on above:Performed By: #### CBC, BMP, HS TROP, BNP #### [facility] [address] [place] [address] USAMean Corpuscular HGB Conc34.3 g/oAOtbejo35.5-35.6The [facility] Physician GroupComment on above:Performed By: #### CBC, BMP, HS TROP, BNP #### [facility] [address] [place] [address] USAMonocytes (Bld) [#/Vol]0.5 10*3/uLNormal0.0-0.8The [facility] Physician GroupComment on above:Performed By: #### CBC, BMP, HS TROP, BNP #### [facility] [address] [place] [address] USAMonocytes/100 WBC (Bld)23.57 %High0.00-20.00The [facility] Physician GroupComment on above:Result Comment: For adults in ED, MDW > 20.0 may be associated with a higher risk of sepsis during the first 12 hrs of hospital admissionPerformed By: #### CBC, BMP, HS TROP, BNP #### [facility] [address] [place] [address] USAMonocytes/100 WBC (Bld)5.4 %Normal.The [facility] Physician GroupComment on above:Performed By: #### CBC, BMP, HS TROP, BNP #### [facility] [address] [place] [address] USANeutrophils (Bld) [#/Vol]8.1 10*3/uLHigh1.8-7.7The [facility] Physician GroupComment on above:Performed By: #### CBC, BMP, HS TROP, BNP #### [facility] [address] [place] [address] USANeutrophils/100 WBC (Bld)82.5 %Normal.The [facility] Physician GroupComment on above:Performed By: #### CBC, BMP, HS TROP, BNP #### [facility] [address] [place] [address] USANRBC%0.1 /100{WBC}Normal0-0.5The [facility] Comment on above:Performed By: #### CBC, BMP, HS TROP, BNP #### [facility] [address] [place] [address] USAPlatelet mean volume (Bld) [Entitic vol]8.9 fLNormal 6.6-10.1The [facility] Physician GroupComment on above:Performed By: #### CBC, BMP, HS TROP, BNP #### [facility] [address] [place] [address] USAPlatelets (Bld) [#/Vol]215 10*3/vAXahjiz305-367Spo [facility] Physician GroupComment on above:Performed By: #### CBC, BMP, HS TROP, BNP #### [place] [address] USARBC (Bld) [#/Vol]4.39 10*6/uLNormal3.90-5.60The [facility] Physician GroupComment on above:Performed By: #### CBC, BMP, HS TROP, BNP #### [place] [address] USAWBC (Bld) [#/Vol]9.8 10*3/uLNormal4.1-10.5The [facility] Physician GroupComment on above:Performed By: #### CBC, BMP, HS TROP, BNP #### [place] [address] USACreatinine [Mass/volume] in Serum or PlasmaOrdered By: Daisy Paul on 01-59-0691Lwoloykxtq [Mass/Vol]Creatinine [Mass/volume] in Serum or Plasma0.70-1.30[facility] CenterECG 12 lead ECGon 54-03-8162FKV 12 lead ECGAULTMAN [facility]RV[facility] [address] [place] [address] Electrocardiograph Report Signed Patient: Shantel Melendez MR#: [id number] : 1960 Acct:[id number] Age/Sex: 63 / M ADM Date: 09/20/24 Loc: ER Room: Type: [facility] ER Attending Dr: Ordering Provider: Daisy Paul [...] wave abnormality Confirmed by Daisy Paul MD ([id number]) on 09/20/2024 7:46:03 PM Referred By: Electronically Signed By: Daisy Paul MD Transcribed By: MUS Signed By Daisy Paul MD 11/[address] [place] [address] Physician GroupEosinophils Auto (Bld) [#/Vol] Ordered By: Daisy Paul on 14-55-4014Kscvykkydgw (Bld) [#/Vol]Automated eosinophil count0.0-0.45[facility] CenterEosinophils/100 WBC Auto (Bld)Ordered By: Daisy Paul on 16-32-8698Jpyaigcnbqa/100 WBC (Bld) Automated eosinophil %.[facility] CenterErythrocyte distribution width Auto (RBC) [Ratio]Ordered By: Daisy Paul on 73-17-4906Lxivzajopmc distribution width (RBC) [Ratio]Erythrocyte distribution width [Ratio] by Automated count12.0-14.8[facility] CenterGlucose [Mass/volume] in Serum or PlasmaOrdered By: Daisy Paul on 10-30-5687Brgdilu [Mass/Vol] Glucose [Mass/volume] in Serum or Ogebth85-926RvgqiklujUniversity Hospitals Lake [facility] Medical Center Comment on above:ADA recommended reference rangeRandom Glucose Reference Range is dependent on time and content of last meal. Glucose of more than 200 mg/dL in a nonstressed, ambulatory subject supports the diagnosisof Diabetes Mellitus. Hematocrit Auto (Bld) [Volume fraction]Ordered By: Daisy Paul on 09-20-2024 Hematocrit (Bld) [Volume fraction]Hematocrit [Volume Fraction] of Blood by Automated count38.8-50.0[facility] CenterHemoglobin [Mass/volume] in BloodOrdered By: Daisy Paul on 84-60-9710Btdbohfkju (Bld) [Mass/Vol]Hemoglobin [Mass/volume] in Blood13.0-17.0[facility] CenterLeukocytes [#/volume] corrected for nucleated erythrocytes in Blood by Automated counOrdered By: Daisy Paul on 53-25-5127RON corrected for nucl RBC Auto (Bld) [#/Vol]Leukocytes [#/volume] corrected for nucleated erythrocytes in Blood by Automated coun4.1-10.5FUniversity Hospitals Geauga Medical CenterLymphocytes Auto (Bld) [#/Vol]Ordered By: Daisy Paul on 36-81-6745Smspnfgzetw (Bld) [#/Vol]Lymphocytes [#/volume] in Blood by Automated count1.00-4.8[facility] CenterLymphocytes/100 WBC Auto (Bld)Ordered By: Daisy Paul on 51-15-9662Ltqzsdhtlau/100 WBC (Bld)Lymphocytes/100 leukocytes in Blood by Automated count.[facility] CenterMCH Auto (RBC) [Entitic mass] Ordered By: Daisy Paul on 08-06-2640BZW (RBC) [Entitic mass]MCH [Entitic mass] by Automated count27.5-35.2FUniversity Hospitals Geauga Medical CenterMCHC Auto (RBC) [Mass/Vol]Ordered By: Daisy Paul on 65-29-5364AEDD (RBC) [Mass/Vol] MCHC [Mass/volume] by Automated count32.5-35.6FUniversity Hospitals Geauga Medical Center MCV Auto (RBC) [Entitic vol]Ordered By: Daisy Paul on 75-74-1292OSZ (RBC) [Entitic vol]MCV [Entitic volume] by Automated count83.5-101[facility] CenterMonocyte distribution width [Entitic volume] in Blood by Automated Ordered By: Daisy Paul on 06-00-7505Imogasex distribution width Auto (Bld) [Entitic vol]Monocyte distribution width [Entitic volume] in Blood by Automated High0.00-20.00[facility] CenterComment on above:For adults in ED, MDW > 20.0 may be associated with a higher risk of sepsis during the first 12 hrs of hospital admissionMonocytes Auto (Bld) [#/Vol]Ordered By: Daisy Paul on 47-93-9746Fpjqkwabn (Bld) [#/Vol]Automated blood monocyte count 0.0-0.8[facility] CenterMonocytes/100 WBC Auto (Bld)Ordered By: Daisy Paul on 17-38-6718Fdyvdcchf/100 WBC (Bld)Automated monocyte %. [facility] CenterNatriuretic peptide B [Mass/Vol]Ordered By: Daisy Paul on 42-52-1200Wlwijgdfpda peptide B (Bld) [Mass/Vol]BNP ser/plas 5-100[facility] CenterNeutrophils Auto (Bld) [#/Vol]Ordered By: Daisy Paul on 79-83-0589Lwsawfhlcim (Bld) [#/Vol]Neutrophils [#/volume] in Blood by Automated countHigh1.8-7.7FUniversity Hospitals Geauga Medical Center Neutrophils/100 WBC Auto (Bld)Ordered By: Daisy Paul on 09-20-2024 Neutrophils/100 WBC (Bld)Automated neutrophil %.[facility] CenterNo Panel InformationOrdered By: Daisy Paul on 24-04-4718Klzqkorap GFR (CKD-EPI)> 60.0 mL/MinUniversity Hospitals Lake West Medical CenterPharmacy Creatinine Clearance (Chem82.47[facility] CenterNucleated erythrocytes [Presence] in Blood by Automated countOrdered By: Daisy Paul on 09-20-2024 Nucleated RBC Auto Ql (Bld)Nucleated erythrocytes [Presence] in Blood by Automated count0-0.5FUniversity Hospitals Geauga Medical CenterPlatelet mean volume Auto (Bld) [Entitic vol]Ordered By: Daisy Paul on 78-46-2941Jlxmczhb mean volume (Bld) [Entitic vol]Platelet mean volume [Entitic volume] in Blood by Automated count6.6-10.1FUniversity Hospitals Geauga Medical CenterPlatelets Auto (Bld) [#/Vol] Ordered By: Daisy Paul on 18-16-4241Opmqtlakr (Bld) [#/Vol]Platelets [#/volume] in Blood by Automated tijwq051-149MpanryovtUniversity Hospitals Lake West Medical Center Potassium [Moles/volume] in Serum or PlasmaOrdered By: Daisy Paul on 98-72-2199Ufzzsstif [Moles/Vol]Potassium [Moles/volume] in Serum or Plasma 3.5-5.1FUniversity Hospitals Geauga Medical CenterRB Auto (Bld) [#/Vol]Ordered By: Daisy Paul on 12-44-6081EPU (Bld) [#/Vol]Erythrocytes [#/volume] in Blood by Automated count3.90-5.60[facility] CenterRespiratory (Upper) Panel, PCRon 37-89-8582Unaxklxblmj (Upper) Panel, PCRAdenovirus Not detected Bordetella parapertussis [...] Influenza A H3 Blank Space PERFORMED BY: [address] [address] PATHOLOGIST CLOTH HAND RAKEL LAZARO M.D.NormalHca Florida South Tampa Hospital Physician GroupComment on above: Performed By: #### HS TROP #### [address] [address] USARespiratory pathogens DNA and RNA panel - Nasopharynx by JER with non-probe detectionOrdered By: Daisy Paul on 05-72-1008Waguwhaemeh pathogens DNA and RNA panel JER+non-probe (Nph)Respiratory pathogens DNA and RNA panel - Nasopharynx by JER with non-probe detectionCity Hospitalerum or plasma anion gap determinationOrdered By: Daisy Paul on 60-58-3398Izrrz gap [Moles/Vol]Serum or plasma anion gap determination6.0-15.0 City Hospitalodium [Moles/volume] in Serum or PlasmaOrdered By: Daisy Paul on 69-42-0746Xfyezm [Moles/Vol]Sodium [Moles/volume] in Serum or RsvynvKjc541-588FdbtgixghUniversity Hospitals Lake West Medical CenterTroponin I High Sensitivityon 06-93-6475Wngvboum I High Nnacenuypjc3Gsyvge5-21Xby [facility] Physician GroupComment on above:Result Comment: The Troponin units of report have been changed to meet the Chest Pain Accreditation requirement, element EC5.M1l2. Troponin units are changed from pg/ml to ng/L. Also, the decimal is removed and results are in whole numbers. PERFORMED BY: [place] [address] PATHOLOGIST CLOTH HAND RAKEL LAZARO M.D.Performed By: #### HS TROP #### [place] [address] USATroponin I High Tiizxwhxtgs9Pvujpu4-29Lmi [facility] Physician GroupComment on above:Result Comment: The Troponin units of report have been changed to meet the Chest Pain Accreditation requirement, element EC5.M1l2. Troponin units are changed from pg/ml to ng/L. Also, the decimal is removed and results are in whole numbers. PERFORMED BY: [place] [address] PATHOLOGIST CLOTH HAND RAKEL LAZARO M.D.Performed By: #### CBC, BMP, HS TROP, BNP #### [place] [address] USATroponin I.cardiac [Mass/volume] in Serum or Plasma by Detection limit <= 0.01 ng/Ordered By: Daisy Paul on 13-77-0476Dgfkbgdb I.cardiac DL <= 0.01 ng/mL [Mass/Vol]Troponin I.cardiac [Mass/volume] in Serum or Plasma by Detection limit <= 0.01 ng/0-20[facility] Comment on above:The Troponin units of report have been changed to meet the Chest Pain Accreditation requirement, element EC5.M1l2. Troponin units are changed from pg/ml to ng/L. Also, the decimal is removed and results are in whole numbers.Urea nitrogen [Mass/volume] in Serum or PlasmaOrdered By: Daisy Paul on 63-09-1702Heqh nitrogen [Mass/Vol]Urea nitrogen [Mass/volume] in Serum or Plasma01-09[facility] CenterWBC Auto (Bld) [#/Vol] Ordered By: Daisy Paul on 77-73-1163ELN (Bld) [#/Vol]Leukocytes [#/volume] in Blood by Automated count4.1-10.5FUniversity Hospitals Geauga Medical CenterX-ray report Ordered By: Gee Hutchins on 76-41-8803Zammz reportAULTMAN ORRVILLE [facility]OS[facility] Main [place] [id number] XRay Report Signed Patient: Shantel Melendez MR#: [id number] : 1960 Acct:[id number] Age/Sex: 63 / M ADM Date: 5 Loc: ER Room: Type: [facility] ER Attending Dr: Copies to: Daisy [...] Dictation Location: RADIO-PC-29 Transcribed By: MARISA 09/20/24 124 Dictated By: Gee Hutchins MD 09/20/241244 Signed By: 09/20/24 1247 [facility] Work Phone: XR chest 2V*on 11-09-8104GU chest 2V*[facility] [address] [place] [address] XRay Report Signed Patient: Shantel Melendez MR#: [id number] : 1960 Acct:[id number] Age/Sex: 63 / M ADM Date: 09/20/24 Loc: ER Room: Type: [facility] ER Attending Dr: Copies to: Daisy [...] Gee Hutchins MD 09/20/241244 Signed By: 09/20/[address] [place] [address] Physician GroupUS ankle/arm indiceson 86-64-2300NC ankle/arm indicesCleveland Clinic Ment[facility] [address] [place], [place] [id number] Ultrasound Report Signed Patient: Shantel Melendez MR#: [id number] : 1960 Acct:[id number] Age/Sex: 63 / M ADM Date: 09/11/24 Loc: [facility] Room: Type: [facility] CLI Attending Dr: Ruddy Harvey MD Ordering [...] M.D.09/16/2024 2:46 PM Dictation Location: [place] [address] Tech: Agueda Helm Transcribed By: MARISA 09/16/24 1446 Dictated By: Filipe Hess MD 09/16/241444 Signed By: 09/16/[address] [place] [address] Physician GroupX-ray reportOrdered By: Yung Pozo on 06-21-2176Vbpdv reportAULTMAN ORRVILLE [facility] Main [place] [id number] XRay Report Signed Patient: Shantel Melendez MR#: [id number] : 1960 Acct:[id number] Age/Sex: 63 / M ADM Date: 5 Loc: X Room: Type: [facility] CLI Attending Dr: Solomon Narayanan PA-C [...] Pozo Jr, DO 06/24/242005 Signed By: 06/24/[address] [place], [place] [address]XR cervical spine LAT/FLX/EXTon 74-90-4131AM cervical spine LAT/FLX/EXTAULTMAN [facility]RVIL[facility] [place] [address] XRay Report Signed Patient: Shantel Melendez MR#: [id number] : 1960 Acct:[id number] Age/Sex: 63 / M ADM Date: 06/24/24 Loc: XD Room: Type: [facility] Attending Dr: Solomon Narayanan PA-C Copies to: Solomon Narayanan PAC Ordering Provider: Solomon DAUGHERTY Date of Service: [...] Pozo Jr, DO 06/24/242005 Signed By: 06/24/[address] [place] [address] Physician GroupY[facility] metabolic 2000 panelon 04-12-3406Wuhfx gap [Moles/Vol]14 mmol/L10 - 20 mmol/[facility] HospitalCalcium [Mass/Vol]9 mg/dL8.6 - 10.6 mg/dLTrinity Health System East CampusChloride [Moles/Vol]103 mmol/L98 - 107 mmol/[facility] HospitalCO2 [Moles/Vol]26 mmol/L21 - 32 mmol/[facility] Creatinine [Mass/Vol]0.86 mg/dL0.50 - 1.30 mg/dLUnProtestant Deaconess HospitaleGFR- PINFUniDayton Children's HospitalComment on above: Calculations of estimated GFR are performed using the 2020 CKD-EPI Study Refit equation without therace variable for the IDMS-Traceable creatinine methods. https://jasn.asnjournals.org/content//ASN.2787179763 Glucose [Mass/Vol]159 mg/iNHeei12 - 99 mg/dLUnProtestant Deaconess Hospital Interpretation and review of laboratory resultsAbnoalUUK HealthcarePotassium [Moles/Vol]4.5 mmol/L3.5 - 5.3 mmol/[facility] HospitalSodium [Moles/Vol]138 mmol/L136 - 145 mmol/[facility] HospitalUrea nitrogen [Mass/Vol]14 mg/dL6 - 23 mg/dLUnProtestant Deaconess HospitalUnProtestant Deaconess HospitalAnion gap [Moles/Vol]14 mmol/LNormal 10-20UnOhioHealth Grady Memorial HospitalComment on above:Performed By: #### 30218-4 #### TITUS Mercado (80501) [facility] ([facility]) [address] [place] [address] 10912Drfiweb [Mass/Vol]9.0 mg/dLNormal8.6-10.6UnOhioHealth Grady Memorial HospitalComment on above:Performed By: #### 78207-9 #### TITUS Mercado (53711) [facility] ([facility]) [address] [place] [address] 74800Etlhvqqr [Moles/Vol]103 mmol/ETevhlv74-089EhxganuigwOhioHealth Grady Memorial HospitalComment on above:Performed By: #### 75152-5 #### TITUS Mercado (13232) [facility] ([facility]) [address] [place], [place] [address]EO6 [Moles/Vol]26 mmol/TSvetko54-73TjkjhcnwuaOhioHealth Grady Memorial HospitalComment on above:Performed By: #### 74772-0 #### TITUS Mercado (33940) [facility] ([facility]) [address] [place] [address] 90272Vgduamenpz [Mass/Vol]0.86 mg/dLNormal0.50-1.30UnOhioHealth Grady Memorial HospitalComment on above:Performed By: #### 77496-3 #### TITUS Mercado (73855) [facility] ([facility]) [address] [place] [address]37[address]HOU/1.73 sq M.predicted MDRD (S/P/Bld) [Vol rate/Area] mL/min/{1.73_m2}Normal>60UnOhioHealth Grady Memorial HospitalComment on above:Result Comment: Calculations of estimated GFR are performed using the 2020 CKD-EPI Study Refit equation without the race variable for the IDMS-Traceable creatinine methods. https://jasn.asnjournals.org/content//ASN.6006276528Edqaodruc By: #### 49589-1 #### TITUS Mercado (81029) [facility] ([facility]) [address] [place], [place] [address]Ygpvfll [Mass/Vol]159 mg/xXBewl49-31OhxcjbeiggOhioHealth Grady Memorial HospitalComment on above:Performed By: #### 93697-9 #### TITUS Mercado (67026) [facility] ([facility]) [address] [place], [place] [address]Opzjnzprm [Moles/Vol]4.5 mmol/LNormal3.5-5.3UnOhioHealth Grady Memorial HospitalComment on above:Performed By: #### 60289-8 #### TITUS Mercado (15948) [facility] ([facility]) [address] [place], [place] [address]Givehy [Moles/Vol]138 mmol/YExmvah810-813VvyzlpblgxLima Memorial HospitalComment on above:Performed By: #### 85798-9 #### TITUS Meracdo (60190) [facility] ([facility]) [address] [place], [place] [address]Qnns nitrogen [Mass/Vol]14 mg/dLNormal6-23Lima Memorial HospitalComment on above:Performed By: #### 72315-6 #### TITUS Mercado (90620) [facility] ([facility]) [address] [place] [address] 31799CQU panel Auto (Bld)on 43-74-2974Sdbrmocogrr distribution width (RBC) [Ratio]13.3 %11.5 - 14.5 %[facility] Hematocrit (Bld) [Volume fraction]38 %Low41.0 - 52.0 %[facility] CampusHemoglobin (Bld) [Mass/Vol]12.9 g/dLLow13.5 - 17.5 g/dLUnProtestant Deaconess HospitalInterpretation and review of laboratory resultsAbnormMansfield HospitalH (RBC) [Entitic mass]31.9 pg26.0 - 34.0 pg [facility] System East CampusMCHC (RBC) [Mass/Vol]33.9 g/dL32.0 - 36.0 g/dL [facility] Medical CenterV (RBC) [Entitic vol]94 fL80 - 100 fL [facility] CampusNucleated RBC/100 WBC (Bld) [Ratio]0 % [facility] CampusPlatelets (Bld) [#/Vol]221 10*3/[facility] Medical CenterRBC (Bld) [#/Vol]4.05 10*6/[facility] Ment[facility] HospitalWBC (Bld) [#/Vol]9.6 10*3/[facility] Medical CenterUnProtestant Deaconess HospitalErythrocyte distribution width (RBC) [Ratio]13.3 %Normal 11.5-14.5UnOhioHealth Grady Memorial HospitalComment on above:Performed By: #### 34665-9 #### TITUS Mercado (44334) [facility] ([facility]) [address] [place] [address] 22287Wjpttqzngp (Bld) [Volume fraction]38.0 %Low41.0-52.0 [facility] Memorial HospitalComment on above:Performed By: #### 44476-3 #### TITUS Mercado (08345) [facility] ([facility]) [address] [place] [address] 74116Arbgujmtnp (Bld) [Mass/Vol]12.9 g/dLLow13.5-17.5UnOhioHealth Grady Memorial HospitalComment on above:Performed By: #### 52176-7 #### TITUS Mercado (90663) [facility] ([facility]) [address] [place] [address] 12536PLB (RBC) [Entitic mass]31.9 swKxjyel55.0-34.0UnOhioHealth Grady Memorial HospitalComment on above:Performed By: #### 24528-3 #### TITUS Mercado (71489) [facility] ([facility]) [address] [place] [address] 89205CDLL (RBC) [Mass/Vol]33.9 g/oSFtfjkg20.0-36.0UnOhioHealth Grady Memorial HospitalComment on above:Performed By: #### 81514-9 #### TITUS Mercado (89540) [facility] ([facility]) [address] [place] [address] 29229PTD (RBC) [Entitic vol]94 jPTwceen54-046DebdpbslxdOhioHealth Grady Memorial HospitalComment on above:Performed By: #### 30465-7 #### TITUS Mercado (05557) [facility] ([facility]) [address] [place] [address] 82480Apupbvqey RBC/100 WBC (Bld) [Ratio]0.0 /100 WBCsNormal0.0-0.0 [facility] Memorial HospitalComment on above:Performed By: #### 45249-8 #### TITUS Mercado (05888) [facility] ([facility]) [address] [place], [place] [address]Ujrsrqkku (Bld) [#/Vol]221 x10*3/yCKabklv341-080UhudapqvceOhioHealth Grady Memorial HospitalComment on above:Performed By: #### 83840-1 #### TITUS Mercado (68684) [facility] ([facility]) [address] [place], [place] [address]PLR (Bld) [#/Vol]4.05 x10*6/uLLow4.50-5.90UnOhioHealth Grady Memorial HospitalComment on above:Performed By: #### 09117-9 #### TITUS PAYANMOTZER L (84462) [facility] ([facility]) [address] [place], [place] [address]KAB (Bld) [#/Vol]9.6 x10*3/uLNormal4.4-11.3UnOhioHealth Grady Memorial HospitalComment on above:Performed By: #### 73588-4 #### TITUS Mercado (38507) [facility] ([facility]) [address] [place] [address] 01948TZ CERVICAL SPINE 2-3 VIEWSon 13-86-2062VI CERVICAL SPINE 2-3 VIEWSInterpreted By: Shubham Eubanks, STUDY: Cervical spine dated 04/10/2024. INDICATION: Signs/Symptoms:Post surgery COMPARISON: None. ACCESSION NUMBER(S): [id number] ORDERING CLINICIAN: DORETHA HARRIS TECHNIQUE: Two views [...] Shubham Eubanks 04/10/2024 10:05 AM Dictation workstation: [id number] Health System Selby General HospitalComment on above:Order Comment: Please have patient uprightXR Cervical spine 2 or 3 Viewson 11-07-6142Pqcdutfw and degenerative change as above without osseous injury evident. MACRO: None Signed by: Shubham Eubanks 04/10/2024 10:05 AM Dictation workstation: [id number] MMODALInterpreted By: Shubham Eubanks, STUDY: Cervical spine dated 04/10/2024. INDICATION: Signs/Symptoms:Post surgery COMPARISON: None. ACCESSION NUMBER(S): [id number] ORDERING CLINICIAN: DORETHA HARRIS TECHNIQUE: Two views [...] seen at the right neck soft tissues. MMODALShubham Eubanks MD - 04/10/2024 Interpreted By: Shubham Eubanks, STUDY: Cervical spine dated 04/10/2024. INDICATION: Signs/Symptoms:Post surgery COMPARISON: None. ACCESSION NUMBER(S): [id number] ORDERING CLINICIAN: DORETHA HARRIS TECHNIQUE: Two views [...] Shubham Eubanks 04/10/2024 10:05 AM Dictation workstation: [id number] [facility] Work Phone: Radiology Study observation (narrative)[facility] Work Phone: XR Cervical spine 2 or 3 ViewsOrdered By: Shubham Eubanks on 61-05-2013RidaxwpdhtTrinity Health System [facility] Campus Work Phone: Blood type and Indirect antibody screen panel (Bld)on 06-11-4653MQD group Nom (Bld)AUnProtestant Deaconess HospitalBlood group antibody screen QlNegativeUnProtestant Deaconess HospitalD Ag Ql (Bld)Positive [facility] CampusUnProtestant Deaconess HospitalABO group Nom (Bld)ANormAvita Health System Ontario HospitalComment on above:Order Comment: As needed for scheduled for aortic, liver, cardiac, or thoracic surgery OR hgb<7.5mg/dl and no active type and screen.Performed By: #### 20339-9 #### TITUS Mercado (88314) [facility] ([facility]) [address] [place] [address] 88959Vdnvb group antibody screen QlNegativeNoProMedica Flower HospitalComment on above:Order Comment: As needed for scheduled for aortic, liver, cardiac, or thoracic surgery OR hgb<7.5mg/dl and no active type and screen.Performed By: #### 78015-5 #### TITUS Mercado (11871) [facility] ([facility]) [address] [place] [address] 98437F Ag Ql (Bld)PositiveMemorial Health System Selby General HospitalComment on above:Order Comment: As needed for scheduled for aortic, liver, cardiac, or thoracic surgery OR hgb<7.5mg/dl and no active type and screen.Performed By: #### 59164-5 #### TITUS Mercado (70726) [facility] ([facility]) [address] [place] [address] 73776FY FLUORO IMAGES NO CHARGEon 70-61-7987WE FLUORO IMAGES NO CHARGEThese images are not reportable by radiology and will not be interpreted by Radiologists.NormalLima Memorial HospitalGas and Carbon monoxide and Electrolytes panel (BldA)on 06-25-5378Kefmy gap 4 (BldA) [Moles/Vol]8LowTrinity Health System East CampusBase excess Calc (Bld) [Moles/Vol]-1.9000 mmol/L-2.0 - 3.0 mmol/[facility] Calcium.ionized (BldA) [Moles/Vol]1.24 mmol/L1.10 - 1.33 mmol/[facility] HospitalChloride (BldA) [Moles/Vol]104 mmol/L98 - 107 mmol/L [facility] CampusCO2 (Bld) [Partial pressure]46 mm[Hg]High [facility] CampusGlucose [Mass/Vol]132 mg/kIRdac95 - 99 mg/dL [facility] CampusHCO3 (Bld) [Moles/Vol]24.3 mmol/L22.0 - 26.0 mmol/[facility] HospitalHematocrit Est (Bld) [Volume fraction]39 %Low41.0 - 52.0 %[facility] CampusHemoglobin (Bld) [Mass/Vol] 12.9 g/dLLow13.5 - 17.5 g/dLTrinity Health System East CampusInhaled oxygen vhiokdvsyxpoy88 %[facility] CampusInterpretation and review of laboratory resultsAbnormalUniversDunn Memorial HospitalLactate (BldA) [Moles/Vol]0.7 mmol/L0.4 - 2.0 mmol/[facility] HospitalOxygen (Bld) [Partial pressure]156 mm[Hg]HighUnProtestant Deaconess Hospital Oxyhemoglobin (BldA) [Mass fraction]95 %94.0 - 98.0 %[facility] System East CampuspH (Bld)7.33 [pH]Low7.38 - 7.42 pHUnProtestant Deaconess Hospital Potassium (BldA) [Moles/Vol]4.5 mmol/L3.5 - 5.3 mmol/[facility] HospitalSodium (BldA) [Moles/Vol]132 mmol/UJdb076 - 145 mmol/[facility] County HospitalUnProtestant Deaconess HospitalAnion gap 4 (BldA) [Moles/Vol]8 mmo/KBsm29-35GtpnujqhtbOhioHealth Grady Memorial HospitalComment on above:Performed By: #### 83958-7 #### TITUS Mercado (94843) [facility] ([facility]) [address] [place] [address] 60451Lhhr excess Calc (Bld) [Moles/Vol]-1.9000 mmol/LNormal -2.0-3.0L[facility] Memorial HospitalComment on above:Performed By: #### 22234-5 #### TITUS Mercado (17451) [facility] ([facility]) [address] [place] [address] 35053Qfofgxd.ionized (BldA) [Moles/Vol]1.24 mmol/LNormal1.10-1.33 [facility] HospitalComment on above:Performed By: #### 51109-9 #### TITUS Mercado (78693) [facility] ([facility]) [address] [place] [address] 28607Svlfbxxx (BldA) [Moles/Vol]104 mmol/CEpvnzh16-807ZasmnxshenOhioHealth Grady Memorial HospitalComment on above:Performed By: #### 99896-5 #### TITUS Mercado (76551) [facility] ([facility]) [address] [place] [address] 34816SK9 (Bld) [Partial pressure]46 mm TqKflc10-12RinixepirzLima Memorial HospitalComment on above:Performed By: #### 55815-0 #### TITUS Mercado (89003) [facility] ([facility]) [address] [place] [address] 10114Xwrtqib [Mass/Vol]132 mg/vCLlxl04-94FswloggctwLima Memorial HospitalComment on above:Performed By: #### 07262-4 #### TITUS Mercado (79983) [facility] ([facility]) [address] [place] [address] 60987AEY9 (Bld) [Moles/Vol]24.3 mmol/SEvepfc92.0-26.0L[facility] Memorial HospitalComment on above:Performed By: #### 84291-7 #### TITUS Mercado (04886) [facility] ([facility]) [address] [place] [address] 35792Liohgexzku Est (Bld) [Volume fraction]39.0 %Low41.0-52.0 [facility] Memorial HospitalComment on above:Performed By: #### 55745-1 #### TITUS Mercado (17647) [facility] ([facility]) [address] [place] [address] 02527Mojdbvfsmp (Bld) [Mass/Vol]12.9 g/dLLow13.5-17.5UnOhioHealth Grady Memorial HospitalComment on above:Performed By: #### 19014-2 #### TITUS Mercado (93350) [facility] ([facility]) [address] [place] [address] 68408Uwpbeha oxygen lgjkanqarbrpe36 %NormalUnOhioHealth Grady Memorial HospitalComment on above:Performed By: #### 07613-1 #### TITUS Mercado (76268) [facility] ([facility]) [address] [place] [address] 39446Flozkba (BldA) [Moles/Vol]0.7 mmol/LNormal0.4-2.0UnOhioHealth Grady Memorial HospitalComment on above:Performed By: #### 35135-4 #### TITUS Mercado (20445) [facility] ([facility]) [address] [place] [address] 47015Yydcjd (Bld) [Partial pressure]156 mm VrMbaf27-83DgngwbyktrOhioHealth Grady Memorial HospitalComment on above:Performed By: #### 14105-8 #### TITUS Mercado (93410) [facility] ([facility]) [address] [place] [address] 15333Xcnhmarzoyzyx (BldA) [Mass fraction]95.0 %Wrlszb75.0-98.0 [facility] HospitalComment on above:Performed By: #### 79013-6 #### TITUS Mercado (63357) [facility] ([facility]) [address] [place] [address] 84880mV (Bld)7.33 [pH]Low7.38-7.42L[facility] Memorial HospitalComment on above:Performed By: #### 43881-8 #### TITUS Mercado (63215) [facility] ([facility]) [address] [place] [address] 58379Iojgwmwnl (BldA) [Moles/Vol]4.5 mmol/LNormal3.5-5.3[facility] Memorial HospitalComment on above:Performed By: #### 37697-6 #### TITUS Mercado (56133) [facility] ([facility]) [address] [place] [address] 44640Xvszsb (BldA) [Moles/Vol]132 mmol/ZUeq956-357PvhaxplowjLima Memorial HospitalComment on above:Performed By: #### 04642-7 #### TITUS Mercado (85212) [facility] ([facility]) [address] [place] [address] 42842KX tomography Unspecified body regionon 00-20-5403Hlxuk images are not reportable by radiology and will not be interpreted by Radiologists.IMAGINGCT TRANSFER OF OUTSIDE FILMSon 88-88-3367CD TRANSFER OF OUTSIDE FILMSOutside images for comparison or treatment purposes, not interpreted by Radiologists.NormalUniversity Hospitals Lake West Medical Centertudy Interpretation of outside studyon 14-62-3782Zuyndps images for comparison or treatment purposes, not interpreted by Radiologists.IMAGINGBlood type and Indirect antibody screen panel (Bld)on 50-02-2080UMT group Nom (Bld)ANoProMedica Flower HospitalComment on above:Performed By: #### 60140-0 #### TITUS Mercado (43581) [facility] ([facility]) [address] [place] [address] 61540Dgrio group antibody screen QlNegativeNoProMedica Flower HospitalComment on above:Performed By: #### 24094-4 #### TITUS Mercado (36393) [facility] ([facility]) [address] [place] [address], [place] [address]U Ag Ql (Bld)UC HealthComment on above:Performed By: #### 05770-4 #### TITUS Mercado (90355) [facility] ([facility]) [address] [place] [place], [place] [address]TWUW BONE DENSITYon 52-23-1992FRAP BONE DENSITYInterpreted By: Ruddy Lopez, STUDY: DEXA BONE DENSITY02/13/2024 10:50 am INDICATION: Signs/Symptoms:r/o osteoporosis, NEED AXIAL SKELETON IMAGES.. The patient is a 63 y/o year old M. ,M54.12 Radiculopathy, cervical region COMPARISON: None. ACCESSION NUMBER(S): [id number] ORDERING CLINICIAN: DORETHA HARRIS TECHNIQUE: DEXA BONE [...] Ruddy Lopez 12/29/2024 8:09 AM Dictation workstation: [id number] Health Miami Valley Hospital NorthDXA Skeletal system Views for bone densityon 06-67-5735Zsruu images are not reportable by radiology and will not be interpreted by Radiologists.IMAGINGXR CERVICAL SPINE COMPLETE 6+ VIEWSon 98-28-2829GY CERVICAL SPINE COMPLETE 6+ VIEWSInterpreted By: Romulo Medrano, STUDY: XR CERVICAL SPINE COMPLETE 6+ VIEWS; ; 02/13/2024 11:10 am INDICATION: Signs/Symptoms:r/o instability, assess alignment. ,M54.12 Radiculopathy, cervical region COMPARISON: None. ACCESSION NUMBER(S): [id number] ORDERING CLINICIAN: DORETHA HARRIS FINDINGS: C-spine, 6 [...] Romulo Medrano 02/19/2024 6:35 PM Dictation workstation: [id number] Health Miami Valley Hospital NorthComment on above:Order Comment: Please obtain with flexion and extensionXR CHEST 2 VIEWSon 46-77-0564NR CHEST 2 VIEWSInterpreted By: Romulo Medrano, STUDY: XR CHEST 2 VIEWS; 02/13/2024 11:10 am INDICATION: Signs/Symptoms:Preop surgery 02/[address] Steven MD. ,M54.12 Radiculopathy, cervical region,M81.0 Age-related osteoporosis without current pathological fracture COMPARISON: None. ACCESSION NUMBER(S): [id number] ORDERING CLINICIAN: DORETHA HARRIS FINDINGS: CARDIOMEDIASTINAL SILHOUETTE: Cardiomediastinal silhouette is normal in size and configuration. LUNGS: Lungs are clear. ABDOMEN: No remarkable upper abdominal findings. BONES: No acute osseous changes. IMPRESSION: 1. No evidence of acute cardiopulmonary process. MACRO: None Signed by: Romulo Medrano 02/19/2024 6:53 PM Dictation workstation: [id number] HealthEC 12 leadOrdered By: Tobi Rico on 11-03-0159Lxtcoe Eslo96TWV [facility] Work Phone: [phone] Nkuu83slstvycQhczdruemzSumma Health Work Phone: [phone] Gbnteh041 [facility] Work Phone: P Onset90 [facility] Work Phone: PR Jcoybzps465 [facility] Work Phone: Q Qhdon477 [facility] Work Phone: QRS Ubkcz79oebjdMqwhtfteytOhio Valley Surgical Hospital Work Phone: QRS Iskugdqo55 [facility] Work Phone: QT Zdjbpcwk998 [facility] Work Phone: QTC Calculation(Bazett)415 [facility] Work Phone: QTC Pctqidhslu388 [facility] Work Phone: [phone] [place]-3degSelect Medical [facility] Work Phone: [phone] Uaqp88hpfpxwpCyezbpgtcnSumma Health Work Phone: [phone] Ycexda714 [facility] Work Phone: [phone] Ehvq53XCQFahfapslhyUpper Valley Medical Center Work Phone: [phone] Work Phone: [phone] 12 leadon 33-45-3731Rveqy rhythm with 1st degree AV block Otherwise normal ECG When compared with ECG of 30-JAN-2019 19:26, heart rate decreased Confirmed by Tobi Rico ([id number]) on 02/12/2024 12:20:00 PMTobi Keller MD - 02/12/2024 Sinus rhythm with 1st degree AV block Otherwise normal ECG When compared with ECG of 30-JAN-2019 19:26, heart rate decreased Confirmed by Tobi Rico ([id number]) on 02/12/2024 12:20:00 PM [facility] Work Phone: basic metabolic 2000 panelon 50-87-7316Cgdgs gap [Moles/Vol]13 mmol/BXhexlr40-93XwcjtyssooOhioHealth Grady Memorial Hospital Comment on above:Performed By: #### 83066-7 #### TITUS Mercado (73409) [facility] ([facility]) [address] [place] [address] 05864Fpploxu [Mass/Vol]9.6 mg/dLNormal8.6-10.6L[facility] Memorial HospitalComment on above:Performed By: #### 21811-2 #### TITUS Mercado (33321) [facility] ([facility]) [address] [place], [place] [address]Mghhbcbn [Moles/Vol]104 mmol/HBrrxdd62-648IvkfphkswaOhioHealth Grady Memorial HospitalComment on above:Performed By: #### 33896-2 #### TITUS Mercado (99879) [facility] ([facility]) [address] [place] [address]95ZK4 [Moles/Vol]26 mmol/MOaexij34-89WopmcddrbtOhioHealth Grady Memorial HospitalComment on above:Performed By: #### 29457-1 #### TITUS Mercado ([id number]) [facility] ([facility]) [address] [place], [place] [address]Fjibjmnonb [Mass/Vol]0.89 mg/dLNormal0.50-1.30UnOhioHealth Grady Memorial HospitalComment on above:Performed By: #### 05748-2 #### TITUS Mercado ([id number]) [facility] ([facility]) [address] [place], [place] [address]LCS/1.73 sq M.predicted MDRD (S/P/Bld) [Vol rate/Area] mL/min/{1.73_m2}Normal>60UnOhioHealth Grady Memorial HospitalComment on above:Result Comment: Calculations of estimated GFR are performed using the 2020 CKD-EPI Study Refit equation without the race variable for the IDMS-Traceable creatinine methods. https://jasn.asnjournals.org/content//ASN.5979822237Eyujuirsx By: #### 66875-8 #### TITUS Mercado ([id number]) [facility] ([facility]) [id number] [place] [address]Bagqhoe [Mass/Vol]77 mg/jBLgqvrq16-82OygsbfrdwkLima Memorial HospitalComment on above:Performed By: #### 73575-2 #### TITUS Mercado ([id number]) [facility] ([facility]) [id number] [place] [address]Jfqskhoea [Moles/Vol]4.6 mmol/LNormal3.5-5.3Lima Memorial HospitalComment on above:Performed By: #### 28484-1 #### TITUS Mercado ([id number]) [facility] ([facility]) [id number] [place] [address]Tqtgri [Moles/Vol]138 mmol/LMduddn753-723LbnchmxobaOhioHealth Grady Memorial HospitalComment on above:Performed By: #### 46011-1 #### TITUS Mercado ([id number]) [facility] ([facility]) [address] [place] [address] 47779Eucw nitrogen [Mass/Vol]9 mg/dLNormal6-23Lima Memorial HospitalComment on above:Performed By: #### 92717-6 #### TITUS Mercado ([id number]) [facility] ([facility]) [address] [place] [address] 14029Aovkk type and Indirect antibody screen panel (Bld)on 04-33-3023NXF group Nom (Bld)ANoalUniOhioHealth Nelsonville Health CenterComment on above:Performed By: #### 59432-2 #### TITUS Mercado ([id number]) [facility] ([facility]) [address] [place], [place] [address]Ocohq group antibody screen QlNegativeMemorial Health System Selby General HospitalComment on above:Performed By: #### 97216-8 #### TITUS Mercado (04280) [facility] ([facility]) [address] [place], [place] [address]Y Ag Ql (Bld)PositiveMemorial Health System Selby General HospitalComment on above:Performed By: #### 49912-1 #### TITUS Mercado (51265) [facility] ([facility]) [address] [place], [place] [address]SPN W Auto Differential panel (Bld)on 87-92-4651Znjmvmcxi (Bld) [#/Vol]0.04 x10*3/uLNormal0.00-0.10L[facility] HospitalComment on above:Performed By: #### 28760-6 #### TITUS Mercado (78861) [facility] ([facility]) [address] [place], [place] [address]Dhlyontwd/100 WBC (Bld)0.8 %Normal0.0-2.0Lima Memorial HospitalComment on above:Performed By: #### 87940-7 #### TITUS Mercado (31334) [facility] ([facility]) [address] [place], [place] [address]Mauhaeoqxyx (Bld) [#/Vol]0.05 x10*3/uLNormal0.00-0.70 [facility] HospitalComment on above:Performed By: #### 95684-3 #### TITUS Mercado (92034) [facility] ([facility]) [address] [place], [place] [address]Hffdttcvetx/100 WBC (Bld)1.0 %Normal0.0-6.0[facility] Memorial HospitalComment on above:Performed By: #### 08936-4 #### TITUS Mercado (12184) [facility] ([facility]) [address] [place] [address]Rwiazklarrx distribution width (RBC) [Ratio]13.2 %Normal 11.5-14.5UnOhioHealth Grady Memorial HospitalComment on above:Performed By: #### 88671-9 #### TITUS Mercado (69538) [facility] ([facility]) [address] [place] [address]44[address]Yqlmqnhdfx (Bld) [Volume fraction]39.6 %Low41.0-52.0 [facility] HospitalComment on above:Performed By: #### 18552-9 #### TITUS Mercado (21235) [facility] ([facility]) [address] [place] [address] 08097Amsvozmnez (Bld) [Mass/Vol]13.2 g/dLLow13.5-17.5UnOhioHealth Grady Memorial HospitalComment on above:Performed By: #### 73228-8 #### TITUS Mercado (09743) [facility] ([facility]) [address] [place] [address]85[address]Fyzkabta granulocytes (Bld) [#/Vol]0.00 x10*3/uLNormal 0.00-0.70UnOhioHealth Grady Memorial HospitalComment on above:Performed By: #### 73848-5 #### TITUS Mercado (38326) [facility] ([facility]) [address] [place] [address] 27785Kgcqbchb granulocytes/100 WBC (Bld)0.0 %Normal0.0-0.9 [facility] HospitalComment on above:Result Comment: Immature Granulocyte Count (IG) includes promyelocytes, myelocytes and metamyelocytes but does not include bands. Percent differential counts (%) should be interpreted in the context of the absolute cell counts (cells/UL). Performed By: #### 70628-1 #### TITUS Mercado (48042) [facility] ([facility]) [address] [place] [address] 79675Nwuuwomuhvk (Bld) [#/Vol]1.74 x10*3/uLNormal1.20-4.80 [facility] HospitalComment on above:Performed By: #### 57225-1 #### TITUS Mercado (28495) [facility] ([facility]) [address] [place], [place] [address]Cefdyyykgwh/100 WBC (Bld)33.1 %Zjbjxa25.0-44.0UnOhioHealth Grady Memorial HospitalComment on above:Performed By: #### 71733-6 #### TITUS Mercado (91645) [facility] ([facility]) [address] [place] [address] 92988ZFO (RBC) [Entitic mass]31.5 ljHyfkhf58.0-34.0UnOhioHealth Grady Memorial HospitalComment on above:Performed By: #### 95407-1 #### TITUS Mercado (95688) [facility] ([facility]) [address] [place] [address] 78[address]VSTZ (RBC) [Mass/Vol]33.3 g/qFIauvvv39.0-36.0UnOhioHealth Grady Memorial HospitalComment on above:Performed By: #### 34523-3 #### TITUS Mercado (42476) [facility] ([facility]) [address] [place] [address] 95629POK (RBC) [Entitic vol]95 vPQhlmxa71-076QirbdjvsdxOhioHealth Grady Memorial HospitalComment on above:Performed By: #### 28828-7 #### TITUS Mercado (62599) [facility] ([facility]) [address] [place] [address] 82892Ldphvsdcz (Bld) [#/Vol]0.30 x10*3/uLNormal0.10-1.00UnOhioHealth Grady Memorial HospitalComment on above:Performed By: #### 16494-4 #### TITUS Mercado (55398) [facility] ([facility]) [address] [place] [address] 02264Zmqvqleiv/100 WBC (Bld)5.7 %Normal2.0-10.0UnOhioHealth Grady Memorial HospitalComment on above:Performed By: #### 67154-2 #### TITUS Mercado (97716) [facility] ([facility]) [address] [place] [address] 71089Qdwqciipohp (Bld) [#/Vol]3.13 x10*3/uLNormal1.20-7.70 [facility] HospitalComment on above:Result Comment: Percent differential counts (%) should be interpreted in the context of the absolute cell counts (cells/uL).Performed By: #### 63712-1 #### TITUS Mercado (49506) [facility] ([facility]) [address] [place] [address] 43725Faclvzxibim/100 WBC (Bld)59.4 %Zattst98.0-80.0UnOhioHealth Grady Memorial HospitalComment on above:Performed By: #### 07124-9 #### TITUS Mercado (15954) [facility] ([facility]) [address] [place] [address] 86980Avjxsmvyn RBC/100 WBC (Bld) [Ratio]0.0 /100 WBCsNormal0.0-0.0 [facility] HospitalComment on above:Performed By: #### 42172-4 #### TITUS Mercado (93008) [facility] ([facility]) [address] [place] [address] 10196Qzjhlhoga (Bld) [#/Vol]271 x10*3/oTXlwhjz351-418HqdjhpzxnyOhioHealth Grady Memorial HospitalComment on above:Performed By: #### 86094-9 #### TITUS Mercado (31966) [facility] ([facility]) [address] [place] [address] 43689KFK (Bld) [#/Vol]4.19 x10*6/uLLow4.50-5.90UnOhioHealth Grady Memorial HospitalComment on above:Performed By: #### 28802-8 #### TITUS Mercado (96343) [facility] ([facility]) [address] [place], [place] [address]PNB (Bld) [#/Vol]5.3 x10*3/uLNormal4.4-11.3[facility] HospitalComment on above:Performed By: #### 02138-5 #### TITUS Mercado (18380) [facility] ([facility]) [address] [place], [place] [address]MPL 12-LEADon 80-59-6319XPK 12-LEADVentricular Rate 63 Atrial Rate 63 P-R Interval 268 QRS Duration 74 Q-T Interval 406 QTC Calculation(Bazett) 415 P [place] 58 R [place] -3 T [place] 18 QRS Count 10 Q Onset 224 P Onset 90 P Offset 149 T Offset 427 QTC Fredericia 412 Diagnosis Sinus rhythm with 1st degree AV block Otherwise normal ECG When compared with ECG of 30-JAN-2019 19:26, heart rate decreased Confirmed by Tobi Rico ([id number]) on 02/12/2024 12:20:00 PMNNorth Memorial Health HospitalNICOTINE AND METABOLITES,Son 59-55-0519Pmvimxnr [Mass/Vol]152 ng/mLNormalLima Memorial HospitalComment on above: Performed By: #### NI+ME #### ANSEL[facility] ([place]) ([id number]) [address] [place], [place] [address]Dhcgncct [Mass/Vol]6 ng/mLNAdena Fayette Medical CenterComment on above:Result Comment: INTERPRETIVE INFORMATION: Nicotine and [...] developed and its performance characteristics determined by [facility]. It has not been cleared or approved by the US Food and Drug Administration. This test was performed in a CLIA certified laboratory and is intended for clinical purposes. Performed By: [facility] [address] [place] [address] Flatbed Press Operator: Benjamin Bullock MD, PhD CLIA Number: [id number] By: #### NI+ME #### [facility] ([place]) ([id number]) [address] [place], [place] [address]DA and aPTT panel Coag (PPP)on 83-79-9105tHDC Coag (PPP) [Time]33 mZmngei56-41PpkbgxuvizOhioHealth Grady Memorial HospitalComment on above:Order Comment: The APTT is no longer used for monitoring Unfractionated Heparin Therapy. For monitoring Heparin Therapy, use the Heparin Assay.Performed By: #### 66759-9 #### TITUS Mercado (41530) [facility] ([facility]) [address] [place] [address] 22452KYR Coag (PPP) [Relative time]1.7Thbxsq6.9-1.1UnOhioHealth Grady Memorial HospitalComment on above:Order Comment: The APTT is no longer used for monitoring Unfractionated Heparin Therapy. For monitoring Heparin Therapy, use the Heparin Assay.Performed By: #### 75884-4 #### TITUS Mercado (80633) [facility] ([facility]) [address] [place] [address] 53033TI Coag (PPP) [Time]11.5 sNormal9.8-12.8L[facility] Memorial HospitalComment on above:Order Comment: The APTT is no longer used for monitoring Unfractionated Heparin Therapy. For monitoring Heparin Therapy, use the Heparin Assay.Performed By: #### 66894-0 #### TITUS PAYANMOTZSIMI Mercado (03162) [facility] ([facility]) [address] [place] [address] 15706Arprblvicxybnc aureus.methicillin resistant isolateon 32-12-4795LURT isol Org specific cx Ql (Nose)Test: Staphylococcus aureus/MRSA colonization, Culture Specimen Source: Anterior Nares Specimen Type: Swab Specimen Date: 02/11/2024 150 Result Date: 02/13/2024825 Result Status: Final result Abnormal: No Resulting Lab: [facility] [address] [place] [address] CULTURE No Staphylococcus aureus isolatedNoalUMercy Memorial HospitalComment on above:Performed By: #### 05798-9 #### TITUS Mercado (82817) [facility] ([facility]) [address] [place] [address] 94894Acrygibbcr complete W Reflex Culture panel (U)on 02-11-2024 Appearance (U)ClearNormalClearLima Memorial Hospital Comment on above:Performed By: #### 42372-2 #### TITUS Mercado (11502) [facility] ([facility]) [address] [place] [address] 02946Bvwdhjofd (U) [Mass/Vol]NegativeNormalNEGATIVELima Memorial HospitalComment on above:Performed By: #### 05997-7 #### TITUS Mercado (81033) [facility] ([facility]) [address] [place] [address] 52999Kfjra (U)ColorlessNormalLight-Yellow, Yellow, Dark-Yellow [facility] HospitalComment on above:Performed By: #### 19883-4 #### TITUS Mercado (24475) [facility] ([facility]) [address] [place] [address] 43894Ebpueph Auto test strip (U) [Mass/Vol]NormalNormalNormal [facility] HospitalComment on above:Performed By: #### 64547-1 #### TITUS Mercado (83156) [facility] ([facility]) [address] [place] [address] 47985Jtpiygj (U) [Mass/Vol]NegativeNormalNEGATIVELima Memorial HospitalComment on above:Performed By: #### 05833-2 #### TITUS Mercado (44311) [facility] ([facility]) [address] [place] [address] 78387Qgdtnsdzh esterase Auto test strip Ql (U)NegativeNormal NEGATIVEUnOhioHealth Grady Memorial HospitalComment on above:Performed By: #### 04776-8 #### TITUS Mercado (85331) [facility] ([facility]) [address] [place] [address] 69531Putyrrr Auto test strip Ql (U)NegativeNormalNEGATIVE [facility] HospitalComment on above:Performed By: #### 22933-6 #### TITUS Mercado (94761) [facility] ([facility]) [address] [place] [address] 91034zM (U)5.5 [pH]Normal5.0, 5.5, 6.0, 6.5, 7.0, 7.5, 8.0 [facility] Memorial HospitalComment on above:Performed By: #### 96385-2 #### TITUS Mercado (54060) [facility] ([facility]) [address] [place] [address] 46350Bzpoegb (U) [Mass/Vol]NegativeNormalNEGATIVE, 10 (TRACE), 20 (TRACE)L[facility] HospitalComment on above:Performed By: #### 38337-8 #### TITUS Mercado (57347) [facility] ([facility]) [address] [place] [address] 67174URQ (U) [#/Vol]NegativeNormalNEGATIVEUnOhioHealth Grady Memorial HospitalComment on above:Performed By: #### 05084-1 #### TITUS Mercado (36201) [facility] ([facility]) [address] [place] [address] 71075Zlpoqxtw gravity (U) [Rel density]1.775Soxaud9.005-1.035 [facility] HospitalComment on above:Performed By: #### 10573-0 #### TITUS Mercado (44309) [facility] ([facility]) [address] [place], [place] [address]Nsokxbuwnamm (U) [Mass/Vol]NormalNormalNormalUniversity The Bellevue HospitalComment on above:Performed By: #### 10060-1 #### TITUS Mercado (43963) [facility] ([facility]) [address] [place], [place] [address]GV BRAIN TUMOR PERFUSION PROTOCOL W AND WO IV CONTRASTon 03-80-7813AZ BRAIN TUMOR PERFUSION PROTOCOL W AND WO IV CONTRASTInterpreted By: Nate Benavidez, STUDY: MR BRAIN TUMOR PERFUSION PROTOCOL W AND WO IV CONTRAST; 12/13/2023 8:49 am INDICATION: Signs/Symptoms:pontine lesion, imaging surveillance. COMPARISON: None. ACCESSION NUMBER(S): [id number] ORDERING CLINICIAN: SHIMON HEATON TECHNIQUE: Axial diffusion, [...] Nate Benavidez 12/13/2023 9:38 AM Dictation workstation: [id number] Health System Selby General HospitalComment on above:Order Comment: FYI results cc'd to [facility] Brain for new diagnosis tumor WO and W contrast Tristin 74-79-3465Uyilk is again evidence of nonspecific nonenhancing ill-defined [...] Nate Benavidez 12/13/2023 9:38 AM Dictation workstation: [id number] By: Nate Benavidez, STUDY: MR BRAIN TUMOR PERFUSION PROTOCOL W AND WO IV CONTRAST; 12/13/2023 8:49 am INDICATION: Signs/Symptoms:pontine lesion, imaging surveillance. COMPARISON: None. ACCESSION NUMBER(S): [id number] ORDERING CLINICIAN: SHIMON HEATON TECHNIQUE: Axial diffusion, [...] infiltrating the brainstem most pronounced within the jsoe right slightly greater than left unchanged in [...] lesion, imaging surveillance. COMPARISON: None. ACCESSION NUMBER(S): [id number] ORDERING CLINICIAN: SHIMON HEATON TECHNIQUE: Axial diffusion, [...] Nate Benavidez 12/13/2023 9:38 AM Dictation workstation: [id number] [facility] Work Phone: Radiology Study observation (narrative)[facility] Work Phone: Brain for new diagnosis tumor WO and W contrast IV Ordered By: Nate Benavidez on 72-22-4469SzpadlozlcProtestant Deaconess Hospital Work Phone: Basophils Auto (Bld) [#/Vol]on 37-16-1577Nqropvvak (Bld) [#/Vol]0.04 10*3/uL<0.11[facility] CenterBasophils/100 WBC Auto (Bld)on 67-54-1823Wkbmylkrh/100 WBC (Bld)0.5 %[facility] Medical CenterBlood manual differential comment interpretation narrativeon 10-26-2023 Manual differential comment Curtis (Bld) [Interp]AutoUniversity Hospitals Lake West Medical CenterCBC W Auto Differential panel (Bld)on 22-12-8934Slahfdazc (Bld) [#/Vol] 0.04 10*3/uLNINFClecincinnati children's hospital medical center ClinicBasophils/100 WBC (Bld)0.5 %[facility] Differential cell count method Nom (Bld)AutoCleveland ClinicEosinophils (Bld) [#/Vol]0.13 10*3/uLNINFCanton ClinicEosinophils/100 WBC (Bld)1.5 %[facility] HospitalErythrocyte distribution width (RBC) [Ratio]13.8 %11.5 - 15.0 %[facility] HospitalHematocrit (Bld) [Volume fraction]42.6 %39.0 - 51.0 %[facility] Hemoglobin (Bld) [Mass/Vol]14.4 g/dL13.0 - 17.0 g/dLMiami Valley HospitalImmature granulocytes (Bld) [#/Vol]0.03 10*3/uLNINFMiami Valley HospitalImmature granulocytes/100 WBC (Bld)0.3 %[facility] HospitalLymphocytes (Bld) [#/Vol]2.18 10*3/uLMiami Valley HospitalLymphocytes/100 WBC (Bld)24.8 %[facility] JacksonH (RBC) [Entitic mass]32.0 pg26.0 - 34.0 pgCProMedica Defiance Regional HospitalHC (RBC) [Mass/Vol]33.8 g/dL30.5 - 36.0 g/dLHolzer Medical Center – JacksonV (RBC) [Entitic vol]94.7 fL80.0 - 100.0 fLCleveland ClinicMonocytes (Bld) [#/Vol]0.60 10*3/uLNINFMiami Valley Hospital Monocytes/100 WBC (Bld)6.8 %[facility] HospitalNeutrophils (Bld) [#/Vol]5.80 10*3/uLMiami Valley HospitalNeutrophils/100 WBC (Bld)66.1 %[facility] HospitalNucleated RBC (Bld) [#/Vol]NINFCSelect Medical Specialty Hospital - Cleveland-FairhillNucleated RBC/100 WBC (Bld) [Ratio]0.0 % /100 WBCMiami Valley HospitalPlatelet mean volume (Bld) [Entitic vol]10.2 fL9.0 - 12.7 fLCSelect Medical Specialty Hospital - Cleveland-FairhillPlatelets (Bld) [#/Vol]314 10*3/Bellevue HospitalRBC (Bld) [#/Vol]4.50 10*6/uL4.20 - 6.00 m/Bellevue HospitalWBC (Bld) [#/Vol]8.78 10*3/[facility] HospitalCT Chest W contrast Tristin 10-26-2023 IMPRESSION: [...] any questions regarding this interpretation, please call [phone]. If you are unable to reach us at the number above, please feel free to contact [facility] eRadiology at [phone].DIVISION OF RADIOLOGY* * *Final Report* * * DATE OF EXAM: Oct 26 2023 10:05AM [facility] 0539 - CT CHEST W [...] images: No additional findings. DIVISION OF RADIOLOGYProvider, [facility] [place] - 10/26/2023 * * *Final Report* * * DATE OF EXAM: Oct 26 2023 10:05AM [facility] 0539 - CT CHEST W [...] any questions regarding this interpretation, please call [phone]. If you are unable to reach us at the number above, please feel free to contact [facility] eRadiology at [phone]. [facility] Neck W contrast Tristin 42-67-0891GOOUYUVWFC: Primary: 1: Expected post-treatment changes in the neck without evidence of recurrent disease in the primary site. Neck: 1: No evidence of abnormal lymph nodes. [email or web address] Transcribe Date/Time: Oct 26 2023 10:15A Dictated by: LIMA LIZ MD This examination was interpreted and the report reviewed and electronically signed by: LIMA LIZ MD on Oct 26 2023 10:35AM EST Thank you for allowing us to participate in the care of your patient. Should there be any questions regarding this interpretation, please call [phone]. 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 Resected T1 N1 base [...] normal. Parotid and submandibular spaces are normal. It Program Engagement Director spaces appear normal. Infrahyoid Neck: Hypopharynx, larynx, [...] are clear of focal consolidation or mass. 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 Resected T1 N1 base [...] normal. Parotid and submandibular spaces are normal. It Program Engagement Director spaces appear normal. Infrahyoid Neck: Hypopharynx, larynx, [...] are clear of focal consolidation or mass. International Affairs Vice President (topogram) images: Noncontributory IMPRESSION IMPRESSION: Primary: 1: Expected post-treatment changes in the neck without evidence of recurrent disease in the primary site. Neck: 1: No evidence of abnormal lymph nodes. [email or web address] Transcribe Date/Time: Oct 26 2023 10:15A Dictated by: LIMA LIZ MD This examination was interpreted and the report reviewed and electronically signed by: (more content not included)...[facility] ClinicCT Neck W contrast IVOrdered By: [facility] Provider on 17-85-0375Pukwgckqu ClinicComprehensive metabolic 2000 panel Ordered By: Pauly Chan on 60-39-2177Rmwlrcq [Mass/Vol]4.3 g/dL3.9 - 4.9 g/dL [place] ClinicALP [Catalytic activity/Vol]75 U/L38 - 113 U/LCleveland Clinic ALT [Catalytic activity/Vol]10 U/L10 - 54 U/LCleveland ClinicAnion gap [Moles/Vol]8 mmol/LLow9 - 18 mmol/LCleveland ClinicAST [Catalytic activity/Vol]9 U/LLow14 - 40 U/LCleveland ClinicBilirubin [Mass/Vol]0.5 mg/dL0.2 - 1.3 mg/dL [facility] HospitalCalcium [Mass/Vol]9.9 mg/dL8.5 - 10.2 mg/dLMiami Valley Hospital Chloride [Moles/Vol]106 mmol/LHigh97 - 105 mmol/LCleveland ClinicCO2 [Moles/Vol] 27 mmol/L22 - 30 mmol/LCleveland ClinicCreatinine [Mass/Vol]1.01 mg/dL0.73 - 1.22 mg/dLMiami Valley HospitalGFR/1.73 sq M.predicted among non-blacks MDRD (S/P/Bld) [Vol rate/Area]85 mL/min/{1.73_m2}- PINProMedica Fostoria Community HospitalComment on above:Estimated Glomerular Filtration Rate (eGFR) [...] actual GFR.Glucose [Mass/Vol] 89 mg/dL74 - 99 mg/dLMiami Valley HospitalComment on above:The [place] Diabetes Association (ADA) provides guidance for cutoff [...] Standards of Medical Care in Diabetes 2016, [place] Diabetes Association. Diabetes Care. 2016.39(Suppl 1). Interpretation and review of laboratory resultsAbnormalCSelect Medical Specialty Hospital - Cleveland-FairhillPotassium [Moles/Vol]4.0 mmol/L3.7 - 5.1 mmol/LCleveland ClinicProtein [Mass/Vol]6.4 g/dL 6.3 - 8.0 g/dLCanton ClinicSodium [Moles/Vol]141 mmol/L136 - 144 mmol/L [facility] HospitalUrea nitrogen [Mass/Vol]16 mg/dL9 - 24 mg/dLSouthview Medical Center ClinicEosinophils/100 WBC Auto (Bld)on 59-13-5010Iaxqdqyjphx/100 WBC (Bld)1.5 %[facility] Medical CenterErythrocyte distribution width Auto (RBC) [Ratio]on 39-97-2913Zmcrbzeuukb distribution width (RBC) [Ratio]13.8 % 11.5-15.0[facility] Medical CenterHematocrit Auto (Bld) [Volume fraction]on 85-00-8299Jutjyaamry (Bld) [Volume fraction]42.6 %39.0-51.0[facility] Medical CenterHemoglobin [Mass/volume] in Bloodon 01-97-8768Buncghdjha (Bld) [Mass/Vol]14.4 g/dL13.0-17.0[facility] CenterLaboratory - Chemistry and Chemistry - challengeon 68-26-0012Obufqtk [Mass/Vol]4.3 g/dL 3.9-4.9[facility] Medical CenterALP [Catalytic activity/Vol]75 U/L38-113 [facility] CenterALT [Catalytic activity/Vol]10 U/L10-54 [facility] CenterAST [Catalytic activity/Vol]9 U/A24-73HmwkmtbpaUniversity Hospitals Lake West Medical CenterBilirubin [Mass/Vol]0.5 mg/dL0.2-1.3FUniversity Hospitals Geauga Medical CenterCalcium [Mass/Vol]9.9 mg/dL8.5-10.2FUniversity Hospitals Geauga Medical CenterChloride [Moles/Vol]106 mmol/H22-185FntrxmjzeUniversity Hospitals Lake West Medical CenterCO2 [Moles/Vol]27 mmol/W84-41SjpcquhzuUniversity Hospitals Lake West Medical CenterCreatinine [Mass/Vol] 1.01 mg/dL0.73-1.22[facility] Medical CenterGlucose [Mass/Vol]89 mg/dL 74-99[facility] CenterComment on above:The [place] [employer] (ADA) provides guidance for cutoff [...] diabetes.Reference: [employer] in Diabetes 2016, [place] [employer]. Diabetes Care. 2016.39(Suppl 1). Potassium [Moles/Vol]4.0 mmol/L3.7-5.1FMcKitrick Hospitalodium [Moles/Vol]141 mmol/A146-644SktjxhoqtUniversity Hospitals Lake West Medical CenterUrea nitrogen [Mass/Vol]16 mg/dL9-24[facility] CenterLaboratory - Hematology and Cell countson [id number] (Bld) [#/Vol]0.13 10*3/uL<0.46[facility] CenterImmature granulocytes (Bld) [#/Vol]0.03 10*3/uL<0.10 [facility] Medical CenterImcoture granulocytes/100 WBC (Bld)0.3 % [facility] Medical CenterLeukocytes [#/volume] corrected for nucleated erythrocytes in Blood by Automated counon [id number] corrected for nucl RBC Auto (Bld) [#/Vol]8.78 k/uL3.70-11.00University [facility] Lymphocytes Auto (Bld) [#/Vol]on 22-67-9592Nfbzarmbxpn (Bld) [#/Vol]2.18 10*3/uL 1.00-4.00[facility] CenterLymphocytes/100 WBC Auto (Bld)on 89-64-4333Rozejgqhyue/100 WBC (Bld)24.8 %[facility] CenterMCH Auto (RBC) [Entitic mass]on 37-62-4988LII (RBC) [Entitic mass]32.0 pg26.0-34.0 [facility] CenterMCHC Auto (RBC) [Mass/Vol]on 57-60-1247GNMJ (RBC) [Mass/Vol]33.8 g/dL30.5-36.0[facility] CenterMCV Auto (RBC) [Entitic vol]on 47-94-5622KUA (RBC) [Entitic vol]94.7 fL80.0-100.0 [facility] CenterMonocytes Auto (Bld) [#/Vol]on 10-26-2023 Monocytes (Bld) [#/Vol]0.60 10*3/uL<0.87[facility] Monocytes/100 WBC Auto (Bld)on 04-12-3720Huvuojgyc/100 WBC (Bld)6.8 %[facility] CenterNeutrophils Auto (Bld) [#/Vol]on 06-38-4977Jabhmrpqdmc (Bld) [#/Vol]5.80 10*3/uL1.45-7.50[facility] Neutrophils/100 WBC Auto (Bld)on 20-39-3345Zowosbczinx/100 WBC (Bld)66.1 % [facility] CenterNo Panel Informationon 33-73-9018Hyyedqtdc Study observation (narrative)[facility] HospitalEstimated GFR (CKD-EPI)85 mL/min/1.73m???>=60[facility] CenterComment on above:Estimated Glomerular Filtration Rate (eGFR) is [...] reflect actual GFR.Nucleated RBC Auto (Bld) [#/Vol]on 09-44-9516Adzglhxwn RBC (Bld) [#/Vol]10*3/uL<0.01[facility] CenterNucleated erythrocytes [Presence] in Blood by Automated counton 05-10-2024 Nucleated RBC Auto Ql (Bld)0.0 /100{WBC}[facility] Platelet mean volume Auto (Bld) [Entitic vol]on 92-61-8846Xoggjczn mean volume (Bld) [Entitic vol]10.2 fL9.0-12.7FUniversity Hospitals Geauga Medical CenterPlatelets Auto (Bld) [#/Vol]on 16-18-5432Bueeyfija (Bld) [#/Vol]314 10*3/wW642-396 [facility] CenterProtein [Mass/volume] in Serum or Plasmaon 89-08-8570Ilycnzs [Mass/Vol]6.4 g/dL6.3-8.0[facility] CenterRBC Auto (Bld) [#/Vol]on 91-67-9756WTD (Bld) [#/Vol]4.50 10*6/uL4.20-6.00City Hospitalerum or plasma anion gap determinationon 50-63-8274Znbmn gap [Moles/Vol]8 mmol/L9-18FUniversity Hospitals Geauga Medical CenterAlanine aminotransferase [Enzymatic activity/volume] in Serum or PlasmaOrdered By: Griselda Krause on 25-83-6119AHA [Catalytic activity/Vol]8 U/L7-52[facility] CenterAlbumin [Mass/volume] in Serum or Plasma by Bromocresol green (BCG) dye binding methoOrdered By: Griselda Krause on 34-76-3032Uztchux BCG dye [Mass/Vol]3.9 g/dL3.5-5.7FUniversity Hospitals Geauga Medical CenterAlkaline phosphatase [Enzymatic activity/volume] in Serum or PlasmaOrdered By: Griselda Krause on 30-73-0493EXK [Catalytic activity/Vol]59 U/Y84-392CmbbkfugcUniversity Hospitals [facility] Medical CenterAspartate aminotransferase [Enzymatic activity/volume] in Serum or Plasma Ordered By: Griselda Krause on 25-92-1535HFK [Catalytic activity/Vol]7 U/L13-39 [facility] CenterBasophils Auto (Bld) [#/Vol]Ordered By: Griselda Krause on 91-21-1204Zmsromvap (Bld) [#/Vol]0.1 10*3/uL0.0-0.2FUniversity Hospitals Geauga Medical CenterBasophils/100 WBC Auto (Bld)Ordered By: Griselda Krause on 10-09-2023 Basophils/100 WBC (Bld)0.9 %.[facility] CenterBilirubin.total [Mass/volume] in Serum or PlasmaOrdered By: Griselda Krause on 76-71-4068Kwwldcgrz [Mass/Vol]0.5 mg/dL0.3-1.0[facility] CenterCOVID-19 Detected/Not DetectedOrdered By: Griselda Krause on 12-91-1625ARTK-CoV-2 (COVID-19) RNA JER+non- probe Ql (Nph)Not detectedNot DetecteFUniversity Hospitals Geauga Medical CenterComment on above:This is a duplicate RP2.1 COVID (PCR) result to be used for statistical tracking purpose only.Calcium [Mass/volume] in Serum or PlasmaOrdered By: Griselda Krause on 57-48-1701Whkbscq [Mass/Vol]9.5 mg/dL8.6-10.3FUniversity Hospitals Geauga Medical CenterCarbon dioxide, total [Moles/volume] in Serum or PlasmaOrdered By: Griselda Krause on 55-39-5185AM1 [Moles/Vol]30.0 mmol/L21.0-31.0[facility] CenterChloride [Moles/volume] in Serum or PlasmaOrdered By: Griselda Krause on 88-89-8243Yhanrvrr [Moles/Vol]103 mmol/J41-337GwqlmlsudUniversity Hospitals [facility] Creatinine [Mass/volume] in Serum or PlasmaOrdered By: Griselda Krause on 10-09-2023 Creatinine [Mass/Vol]0.92 mg/dL0.70-1.30[facility] Eosinophils Auto (Bld) [#/Vol]Ordered By: Griselda Krause on 18-68-6738Cszryfvqrfj (Bld) [#/Vol]0.1 10*3/uL0.0-0.45[facility] CenterEosinophils/100 WBC Auto (Bld)Ordered By: Griselda Krause on 49-38-9552Mykpfxhupcx/100 WBC (Bld)1.0 %.[facility] CenterErythrocyte distribution width Auto (RBC) [Ratio]Ordered By: Griselda Krause on 66-11-9555Wiajxcmnpxa distribution width (RBC) [Ratio]14.3 %12.0-14.8[facility] CenterGlobulin Calc (S) [Mass/Vol]Ordered By: Griselda Krause on 23-49-8790Ziqlcyoz (S) [Mass/Vol]2.0 g/dL [facility] CenterGlucose [Mass/volume] in Serum or PlasmaOrdered By: Griselda Krause on 75-05-2125Fvrpojr [Mass/Vol]84 mg/kZ61-514FzjylndlsUniversity Hospitals [facility] CenterComment on above:ADA recommended reference rangeRandom Glucose Reference Range is dependent on time and content of last meal. Glucose of more than 200 mg/dL in a nonstressed, ambulatory subject supports the diagnosisof Diabetes Mellitus.Hematocrit Auto (Bld) [Volume fraction]Ordered By: Griselda Krause on 09-10-3631Vyxxuplopo (Bld) [Volume fraction]41.9 %38.8-50.0[facility] CenterHemoglobin [Mass/volume] in BloodOrdered By: Griselda Krause on 59-17-0938Mhjturxgas (Bld) [Mass/Vol]14.4 g/dL13.0-17.0[facility] CenterLeukocytes [#/volume] corrected for nucleated erythrocytes in Blood by Automated counOrdered By: Griselda Krause on 07-60-4105FVH corrected for nucl RBC Auto (Bld) [#/Vol]8.1 10*3/uL4.1-10.5FUniversity Hospitals Geauga Medical Center Lymphocytes Auto (Bld) [#/Vol]Ordered By: Griselda Krause on 26-93-5104Ookbmpbqzzw (Bld) [#/Vol]2.7 10*3/uL1.00-4.8[facility] CenterLymphocytes/100 WBC Auto (Bld)Ordered By: Griselda Krause on 52-64-8938Hxrvlfwkkvn/100 WBC (Bld)33.6 %.[facility] CenterMCH Auto (RBC) [Entitic mass]Ordered By: Griselda Krause on 66-48-9388QOX (RBC) [Entitic mass]32.7 pg27.5-35.2FUniversity Hospitals Geauga Medical CenterMCHC Auto (RBC) [Mass/Vol]Ordered By: Griselda Krause on 61-09-8608BPJY (RBC) [Mass/Vol]34.4 g/dL32.5-35.6FUniversity Hospitals Geauga Medical CenterMCV Auto (RBC) [Entitic vol]Ordered By: Griselda Krause on 54-63-2249NXZ (RBC) [Entitic vol]94.8 fL83.5-101[facility] CenterMonocytes Auto (Bld) [#/Vol]Ordered By: Griselda Krause on 36-03-4389Qcwornghn (Bld) [#/Vol]0.6 10*3/uL0.0-0.8[facility] CenterMonocytes/100 WBC Auto (Bld) Ordered By: Griselda Krause on 62-77-1335Zogckdgzg/100 WBC (Bld)7.5 %.[facility] CenterNeutrophils Auto (Bld) [#/Vol]Ordered By: Griselda Krause on 03-50-1075Dbltnufeypx (Bld) [#/Vol]4.6 10*3/uL1.8-7.7FUniversity Hospitals Geauga Medical CenterNeutrophils/100 WBC Auto (Bld)Ordered By: Griselda Krause on 10-09-2023 Neutrophils/100 WBC (Bld)57.0 %.[facility] CenterNo Panel InformationOrdered By: Griselda Krause on 37-51-3991Osvozjmgo GFR (CKD-EPI)> 60.0 mL/MinUniversity Hospitals Lake [facility] Medical CenterPharmacy Creatinine Clearance (ChemN/A [facility] CenterNucleated erythrocytes [Presence] in Blood by Automated countOrdered By: Griselda Krause on 62-61-6893Zdooifqyf RBC Auto Ql (Bld) 0.2 /100{WBC}0-0.5FUniversity Hospitals Geauga Medical CenterPlatelet mean volume Auto (Bld) [Entitic vol]Ordered By: Griselda Krause on 78-56-3684Qqrftkth mean volume (Bld) [Entitic vol]8.3 fL6.6-10.1[facility] CenterPlatelets Auto (Bld) [#/Vol]Ordered By: Griselda Krause on 71-67-1052Avrxvgdpx (Bld) [#/Vol]349 10*3/aG418-935EeoecjofoUniversity Hospitals [facility] Medical CenterPotassium [Moles/volume] in Serum or PlasmaOrdered By: Griselda Krause on 40-55-3688Hkvwivjef [Moles/Vol]4.5 mmol/L 3.5-5.1FUniversity Hospitals Geauga Medical CenterProtein [Mass/volume] in Serum or Plasma Ordered By: Griselda Krause on 99-82-5390Krfkyyv [Mass/Vol]5.9 g/dL6.4-8.9[facility] CenterRBC Auto (Bld) [#/Vol]Ordered By: Griselda Krause on 99-64-7927HOH (Bld) [#/Vol]4.42 10*6/uL3.90-5.60[facility] CenterRespiratory pathogens DNA and RNA panel - Nasopharynx by JER with non- probe detectionOrdered By: Griselda Krause on 93-48-0672Rvblavvemvd pathogens DNA and RNA panel JER+non-probe (Nph)City Hospitalerum or plasma albumin/globulin mass ratioOrdered By: Griselda Krause on 34-71-4835Jwuisbg/Globulin [Mass ratio]2.0 {ratio}City Hospitalerum or plasma anion gap determinationOrdered By: Griselda Krause on 60-86-9977Jxljo gap [Moles/Vol]9.5 mmol/L6.0-15.0City Hospitalodium [Moles/volume] in Serum or PlasmaOrdered By: Griselda Krause on 09-03-9837Cxhptd [Moles/Vol]138 mmol/M686-733 [facility] CenterUrea nitrogen [Mass/volume] in Serum or Plasma Ordered By: Griselda Krause on 07-00-2291Sfan nitrogen [Mass/Vol]14 mg/dL7-25 [facility] CenterWBC Auto (Bld) [#/Vol]Ordered By: Griselda Krause on 44-29-1448JPA (Bld) [#/Vol]8.1 10*3/uL4.1-10.5FUniversity Hospitals Geauga Medical Center Study Interpretation of outside studyon 98-64-8533Hxfldvs images for comparison or treatment purposes, not interpreted by Radiologists.IMAGINGMRI BRAIN W WO CONTRASTon 15-93-7140SNQ BRAIN W WO CONTRAST EXAMINATION: MRI OF [...] Signed by: Vitor Hickman MD 08/01/23 Final resultNormHeart of the Rockies Regional Medical CenterMRI CERVICAL SPINE WO CONTRASTon 58-73-7412VNB CERVICAL SPINE WO CONTRASTEXAMINATION: MRI OF THE [...] Signed by: Vitor Hickman MD 08/01/23 Final resultNormalEstes Park Medical CenterCOVID + FLU Quick Testingon 97-39-6505WNIM-CoV-2 (COVID-19) RNA JER+probe Ql (Unsp spec)NegativeCellufun Other COVID + FLU Quick TestingNegativeCopyright Agent [employer] Other Quick Strepon 07-02-2023S. pyogenes Org specific cx Ql (Throat)NegativeCellufun Other quick [employer] Other RSVon 61-64-5593MIM Ag IA Ql (Unsp spec)NegativeCellufun Other Creatinine [Mass/volume] in Serum or PlasmaOrdered By: Ruddy Harvey on 51-63-8074Lsdrypprpk [Mass/Vol]0.91 mg/dL0.70-1.30 [facility] CenterNo Panel InformationOrdered By: Ruddy Harvey on 50-53-9983Kxuvouals GFR (CKD-EPI)> 60.0 mL/MinUniversity Hospitals Lake [facility] Medical CenterPharmacy Creatinine Clearance (Chem83.52[facility] CenterUrea nitrogen [Mass/volume] in Serum or PlasmaOrdered By: Ruddy Harvey on 59-81-4474Lghb nitrogen [Mass/Vol]15 mg/dL7-[facility] CenterCreatinine (Bld) [Mass/Vol]Ordered By: Nikole Mota on 48-68-2330Souxsfwfhx [Mass/Vol]0.9 mg/dL0.6-1.3FUniversity Hospitals Ge[facility] Center Comment on above:ER/ESD physician is notified/shown all ISTAT results.Critical values may be confirmed by laboratorytesting ifdeemed necessary by ER attending doctor.No Panel InformationOrdered By: Nikole Mota on 26-97-4669Pmtkztg Estimated GFR (eGFR)> 60.0[facility] CenterAlanine aminotransferase [Enzymatic activity/volume] in Serum or PlasmaOrdered By: Griselda Krause on 80-35-3442KPO [Catalytic activity/Vol]10 U/L7-52[facility] CenterAlbumin [Mass/volume] in Serum or Plasma by Bromocresol green (BCG) dye binding methoOrdered By: Griselda Krause on 10-65-8212Hincucq BCG dye [Mass/Vol]4.2 g/dL3.5-5.7FUniversity Hospitals Geauga Medical CenterAlkaline phosphatase [Enzymatic activity/volume] in Serum or PlasmaOrdered By: Griselda Krause on 60-49-5012TIW [Catalytic activity/Vol]61 U/X89-347CupipaeorUniversity Hospitals [facility] Medical CenterAspartate aminotransferase [Enzymatic activity/volume] in Serum or Plasma Ordered By: Griselda Krause on 29-01-0962WIK [Catalytic activity/Vol]8 U/L13-39 [facility] CenterBasophils Auto (Bld) [#/Vol]Ordered By: Griselda Krause on 33-59-8125Jbedrmusj (Bld) [#/Vol]0.1 10*3/uL0.0-0.2FUniversity Hospitals Geauga Medical CenterBasophils/100 WBC Auto (Bld)Ordered By: Griselda Krause on 03-30-2023 Basophils/100 WBC (Bld)0.8 %.[facility] CenterBilirubin.total [Mass/volume] in Serum or PlasmaOrdered By: Griselda Krause on 14-63-7521Kyeobaqyv [Mass/Vol]0.9 mg/dL0.3-1.0[facility] CenterCalcium [Mass/volume] in Serum or PlasmaOrdered By: Griselda Krause on 84-90-5382Lgynpyv [Mass/Vol]9.1 mg/dL8.6-10.3FUniversity Hospitals Geauga Medical CenterCarbon dioxide, total [Moles/volume] in Serum or PlasmaOrdered By: Griselda Krause on 63-54-7742LK5 [Moles/Vol]27.0 mmol/L21.0-31.0[facility] CenterChloride [Moles/volume] in Serum or PlasmaOrdered By: Griselda Krause on 42-74-0537Tultytyo [Moles/Vol]103 mmol/L11-114CmfmvdeabUniversity Hospitals [facility] Medical CenterCholesterol [Mass/volume] in Serum or PlasmaOrdered By: Griselda Krause on 77-95-7945Mkasgandhea [Mass/Vol]224 mg/tP319-775TbssmvdjlUniversity Hospitals [facility] Medical CenterComment on above:Chol less than 200 mg/dl low riskChol 201-239 mg/dl borderline riskChol 240 mg/dl and greater high riskCholesterol in LDL Calc [Mass/Vol]Ordered By: Griselda Krause on 28-34-3540Ocuzfhhrblb in LDL [Mass/Vol]148 mg/dL0-100[facility] CenterComment on above:LDL ATP III CLASSIFICATIONLDL less than 100 mg/dL OptimalLDL 100-129 mg/dL Near or above tnqnbugDGQ033-041 mg/dL Borderline highLDL 160-189 mg/dL HighLDL greater than 189 mg/dL Very highCholesterol in VLDL Calc [Mass/Vol]Ordered By: Griselda Krause on 89-99-8290Mwuubwclqtu in VLDL [Mass/Vol]31 mg/dLUniversity Hospitals Lake West Medical CenterCreatinine [Mass/volume] in Serum or PlasmaOrdered By: Griselda Krause on 03-09-8562Asohhvmfcw [Mass/Vol]0.82 mg/dL0.70-1.30[facility] CenterEosinophils Auto (Bld) [#/Vol] Ordered By: Griselda Krause on 79-74-8302Rzozstfkqjj (Bld) [#/Vol]0.1 10*3/uL0.0-0.45 [facility] CenterEosinophils/100 WBC Auto (Bld)Ordered By: Griselda Krause on 35-35-1771Npnajnryavg/100 WBC (Bld)0.6 %.[facility] CenterErythrocyte distribution width Auto (RBC) [Ratio]Ordered By: Griselda Krause on 60-76-3451Qdrqrpxstki distribution width (RBC) [Ratio]14.1 %12.0-14.8[facility] CenterGlobulin Calc (S) [Mass/Vol]Ordered By: Griselda Krause on 56-76-2110Uvjfxnro (S) [Mass/Vol]1.9 g/dLUniversity Hospitals [facility] Center Glucose [Mass/volume] in Serum or PlasmaOrdered By: Griselda Krause on 03-30-2023 Glucose [Mass/Vol]83 mg/mI50-727MfmmwvwijUniversity Hospitals [facility] CenterComment on above:ADA recommended reference rangeRandom Glucose Reference Range is dependent on time and content of last meal. Glucose of more than 200 mg/dL in a nonstressed, ambulatory subject supports the diagnosisof Diabetes Mellitus. Hematocrit Auto (Bld) [Volume fraction]Ordered By: Griselda Krause on 03-30-2023 Hematocrit (Bld) [Volume fraction]41.4 %38.8-50.0[facility] CenterHemoglobin [Mass/volume] in BloodOrdered By: Griselda Krause on 03-30-2023 Hemoglobin (Bld) [Mass/Vol]14.4 g/dL13.0-17.0[facility] Leukocytes [#/volume] corrected for nucleated erythrocytes in Blood by Automated counOrdered By: Griselda Krause on 49-94-4020HCN corrected for nucl RBC Auto (Bld) [#/Vol]10.0 10*3/uL4.1-10.5FUniversity Hospitals Geauga Medical CenterLymphocytes Auto (Bld) [#/Vol]Ordered By: Griselda Krause on 08-07-0425Akrfnxyemsr (Bld) [#/Vol]1.7 10*3/uL1.00-4.8[facility] CenterLymphocytes/100 WBC Auto (Bld) Ordered By: Griselda Krause on 90-78-1047Qxixxomsdee/100 WBC (Bld)16.8 %.[facility] Auto (RBC) [Entitic mass]Ordered By: Griselda Krause on 30-77-4552GOP (RBC) [Entitic mass]33.9 pg27.5-35.2[facility] Medical CenterMCHC Auto (RBC) [Mass/Vol]Ordered By: Griselda Krause on 39-15-9062ZDUV (RBC) [Mass/Vol]34.9 g/dL32.5-35.6FUniversity Hospitals Geauga Medical CenterMCV Auto (RBC) [Entitic vol]Ordered By: Griselda Krause on 82-81-0779XUL (RBC) [Entitic vol]97.1 fL 83.5-101[facility] CenterMonocytes Auto (Bld) [#/Vol]Ordered By: Griselda Krause on 90-02-5535Syjclflyh (Bld) [#/Vol]0.8 10*3/uL0.0-0.8[facility] CenterMonocytes/100 WBC Auto (Bld)Ordered By: Griselda Krause on 66-74-1973Iwahzycdk/100 WBC (Bld)8.0 %.[facility] Neutrophils Auto (Bld) [#/Vol]Ordered By: Griselda Krause on 97-66-9066Lbhbyqeuhln (Bld) [#/Vol]7.3 10*3/uL1.8-7.7FUniversity Hospitals Geauga Medical CenterNeutrophils/100 WBC Auto (Bld)Ordered By: Griselda Krause on 19-26-8613Duiqqvcvaig/100 WBC (Bld)73.8 %.[facility] CenterNo Panel InformationOrdered By: Griselda Krause on 06-27-3515Tluaaicft GFR (CKD-EPI)> 60.0 mL/MinUniversity Hospitals [facility] Center Pharmacy Creatinine Clearance (ChemN/[facility]ome[facility] HospitalNucleated erythrocytes [Presence] in Blood by Automated countOrdered By: Griselda Krause on 34-85-3676Gukwynnqf RBC Auto Ql (Bld)0.1 /100{WBC}0-0.5FUniversity Hospitals Geauga Medical CenterPlatelet mean volume Auto (Bld) [Entitic vol]Ordered By: Griselda Krause on 05-77-7037Jbqxjhug mean volume (Bld) [Entitic vol]9.2 fL6.6-10.1 [facility] CenterPlatelets Auto (Bld) [#/Vol]Ordered By: Griselda Krause on 79-28-0266Igsizyzsj (Bld) [#/Vol]221 10*3/oV963-449MhixvpcbkUniversity Hospitals [facility] Medical CenterPotassium [Moles/volume] in Serum or PlasmaOrdered By: Griselda Krause on 22-95-4454Tsxurferx [Moles/Vol]4.1 mmol/L3.5-5.1FUniversity Hospitals Geauga Medical CenterProtein [Mass/volume] in Serum or PlasmaOrdered By: Griselda Krause on 14-98-9081Pwddqvm [Mass/Vol]6.1 g/dL6.4-8.9[facility] CenterRBC Auto (d) [#/Vol]Ordered By: Griselda Krause on 45-30-6703QKK (d) [#/Vol]4.26 10*6/uL3.90-5.60City Hospitalerum or plasma albumin/globulin mass ratioOrdered By: Griselda Krause on 97-95-9670Tvprdmd/Globulin [Mass ratio]2.2 {ratio}City Hospitalerum or plasma anion gap determinationOrdered By: Griselda Krause on 98-51-9635Ujkky gap [Moles/Vol]12.1 mmol/L6.0-15.0City Hospitalerum or plasma high density lipoprotein (HDL) cholesterol measurementOrdered By: Griselda Krause on 03-30-2023 Cholesterol in HDL [Mass/Vol]44 mg/pO58-39CckffiwtsUniversity Hospitals [facility] Center Comment on above:HDL CHOL ATP-III CLASSIFICATION Cardiovascular RiskHDL > or equal to 60 mg/dL LOWHDL < 40 mg/dL HIGHSerum or plasma total cholesterol/high density lipoprotein (HDL) cholesterol mass ratOrdered By: Griselda Krause on 86-85-9671Vvrfbarwjwj.total/Cholesterol in HDL [Mass ratio]5.1 {ratio}<5.0 City Hospitalodium [Moles/volume] in Serum or PlasmaOrdered By: Griselda Krause on 33-23-1867Csymjq [Moles/Vol]138 mmol/D262-804AcdzkjpxsUniversity Hospitals Lake West Medical CenterThyrotropin [Units/volume] in Serum or PlasmaOrdered By: Griselda Krause on 79-50-7173JXH Qn0.93 m[IU]/L0.45-5.33[facility] CenterTriglyceride [Mass/volume] in Serum or PlasmaOrdered By: Griselda Krause on 41-61-3941Trfvzldjoxww [Mass/Vol]159 mg/dL0-149[facility] Comment on above:TRIG ATP III CLASSIFICATIONTRIG less than 150 mg/dL NormalTRIG 150-199 mg/dL Borderline highTRIG 200-500 mg/dL High TRIG greater than 500 mg/dL Very highStandard traceable to the Center for Disease Conrtrol and Prevention (CDC) test method.Urea nitrogen [Mass/volume] in Serum or PlasmaOrdered By: Grieslda Krause on 76-47-1870Hxaj nitrogen [Mass/Vol]10 mg/dL7-25[facility] CenterWBC Auto (Bld) [#/Vol]Ordered By: Griselda Krause on 45-61-3473TWX (Bld) [#/Vol]10.0 10*3/uL4.1-10.5FUniversity Hospitals Geauga Medical CenterCOVID-19 YENNY Ordered By: Daniel Gaytan on 98-60-2535JBHK-CoV+SARS-CoV-2 (COVID-19) Ag IA.rapid Ql (Resp)NegativeNegativeUniversity Hospitals Lake West Medical CenterComment on above:This is a duplicate Yenny SARS Antigen (JAMILA) result to be used for statistical tracking purpose only.No Panel InformationOrdered By: Daniel Gaytan on 90-96-9355GNQC Antigen (LFIA)City HospitalARS Antigen (LFIA)[facility] CenterNo Panel Informationon 71-76-9776HP Pain Management Case (Reference Range: not available) *FINAL Date of Service: 12/28/2022 08:49 Adm #: [id number] Reading Dr:RICARDO CAPPS Signoff Dr: RICARDO CAPPS PROCEDURE: PAIN MANAGEMENT CASE - BXR 0999 REASON FOR EXAM: SPONDYLOSIS W/O MYELOPATHY OR RADICULOPATHY, CERVICAL REGION RESULT: Patient Name: SHANTEL MELENDEZ STUDY: PAIN MANAGEMENT CASE INDICATION: SPONDYLOSIS W/O MYELOPATHY OR RADICULOPATHY, CERVICAL REGION COMPARISON: None. ACCESSION NUMBER(S): [id number] ORDERING CLINICIAN: LIMA JOSEPH TECHNIQUE: See below: FINDINGS: Fluoroscopy was provided during therapeutic puncture in the region of the cervical spine for pain management. Total fluoroscopy time: 14.56mgy, images: 4. IMPRESSION: Fluoroscopy for pain management. Dictation workstation: [id number] Original Interpreting Physician: RICARDO CAPPS M.D. Original Transcribed by/Date: MMODAL Dec 28 2022 6:14A Original Electronically Signed by/Date: RICARDO CAPPS M.D. Dec 28 2022 9:04A Addendum Interpreting Physician: Addendum Transcribed by/Date: NO ADDENDUM Addendum Electronically Signed by/Date: [facility] EnterprFanminderuick Strepon 12-05-2022S. pyogenes Org specific cx Ql (Throat) NegativeCaptivate Network Other Quick StrepCaptivate Network Other CT Chest W contrast Tristin 88-93-6411FZPNEUZPCJ: Stable CT of the chest. Unchanged appearance [...] any questions regarding this interpretation, please call [phone]. If you are unable to reach us at the number above, please feel free to contact [facility] eRadiology at [phone].DIVISION OF RADIOLOGY* * *Final Report* * * DATE OF EXAM: Oct 27 2022 11:44AM [facility] 0539 - CT CHEST W [...] No abnormality in the imaged upper abdomen. International Affairs Vice President (topogram) images: No additional findings. DIVISION OF RADIOLOGYProvider, [facility] [place] - 10/30/2022 * * *Final Report* * * DATE OF EXAM: Oct 27 2022 11:44AM [facility] 0539 - CT CHEST W [...] No abnormality in the imaged upper abdomen. International Affairs Vice President (topogram) images: No additional findings. IMPRESSION IMPRESSION: [...] any questions regarding this interpretation, please call [phone]. If you are unable to reach us at the number above, please feel free to contact [facility] eRadiology at [phone]. [facility] W Auto Differential panel (Bld)on 10-27-2022 Basophils (Bld) [#/Vol]0.03 10*3/uLNIGlenbeigh Hospital ClinicBasophils/100 WBC (Bld) 0.3 %[facility] HospitalDifferential cell count method Nom (Bld)AutoCleveland ClinicEosinophils (Bld) [#/Vol]0.06 10*3/uLNINFMiami Valley HospitalEosinophils/100 WBC (Bld)0.7 %[facility] HospitalErythrocyte distribution width (RBC) [Ratio]14.0 % 11.5 - 15.0 %[facility] HospitalHematocrit (Bld) [Volume fraction]43.5 %39.0 - 51.0 %[facility] HospitalHemoglobin (Bld) [Mass/Vol]14.5 g/dL13.0 - 17.0 g/dLMiami Valley HospitalImmature granulocytes (Bld) [#/Vol]0.03 10*3/uLNINFMiami Valley Hospital Immature granulocytes/100 WBC (Bld)0.3 %[facility] HospitalLymphocytes (Bld) [#/Vol]2.00 10*3/uLMiami Valley HospitalLymphocytes/100 WBC (Bld)21.9 %[facility] (RBC) [Entitic mass]31.3 pg26.0 - 34.0 pgCProMedica Defiance Regional HospitalHC (RBC) [Mass/Vol]33.3 g/dL30.5 - 36.0 g/dLHolzer Medical Center – JacksonV (RBC) [Entitic vol]93.8 fL80.0 - 100.0 fLClevelatrium health pineville ClinicMonocytes (Bld) [#/Vol]0.53 10*3/uLNINF [facility] HospitalMonocytes/100 WBC (Bld)5.8 %[facility] HospitalNeutrophils (Bld) [#/Vol]6.47 10*3/uLMiami Valley HospitalNeutrophils/100 WBC (Bld)71.0 %[facility] HospitalNucleated RBC (Bld) [#/Vol]NINFClevelMedina HospitalNucleated RBC/100 WBC (Bld) [Ratio]0.0 %/100 WBCMiami Valley HospitalPlatelet mean volume (Bld) [Entitic vol] 10.8 fL9.0 - 12.7 fLCdunlap memorial hospital ClinicPlatelets (Bld) [#/Vol]253 10*3/[facility] HospitalRBC (Bld) [#/Vol]4.64 10*6/uL4.20 - 6.00 m/[facility] HospitalWBC (Bld) [#/Vol]9.12 10*3/uLClermont County Hospital ClinicCT Neck W contrast Tristin [id number]: Primary NIRADS Category: 1. Expected post-treatment changes in the neck without evidence of recurrent disease in the primary site. Neck NIRADS Category: 1. No evidence of abnormal lymph nodes. [email or web address] [email or web address] Transcribe Date/Time: Oct 27 2022 11:56A Dictated by: KALPANA HAMPTON MD This examination was interpreted and the report reviewed and electronically signed by: KALPANA HAMPTON MD on Oct 27 2022 12:14PM EST Thank you for allowing us to participate in the care of your patient. Should there be any questions regarding this interpretation, please call [phone]. 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 Parotid and submandibular spaces are normal. It Program Engagement Director spaces appear normal. Infrahyoid Neck: Hypopharynx, larynx, [...] focal consolidation or mass. 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 Parotid and submandibular spaces are normal. It Program Engagement Director spaces appear normal. Infrahyoid Neck: Hypopharynx, larynx, [...] 1. No evidence of abnormal lymph nodes. [email or web address] [email or web address] Transcribe Date/Time: Oct 27 2022 11:56A Dictated by: KALPANA HAMPTON MD This examination was interpreted and the report reviewed and electronically signed by: KALPANA HAMPTON MD on Oct 27 2022 12:14PM EST Thank you for allowing us to participate in the care of your patient. Should there be any questions regarding this interpretation, please call [phone]. If you are unable to reach us at the number above, please feel free to contact [facility] at [phone]. [facility] Neck W contrast IVOrdered By: Ccf Provider on 10-27-2022 [facility] HospitalComprehensive metabolic 2000 panelOrdered By: Kelly Goodson on 61-65-5437Xdpwufp [Mass/Vol]4.3 g/dL3.9 - 4.9 g/dLCanton ClinicALP [Catalytic activity/Vol]89 U/L38 - 113 U/LCleveland ClinicALT [Catalytic activity/Vol]7 U/LLow10 - 54 U/LCleveland ClinicAnion gap [Moles/Vol]10 mmol/L9 - 18 mmol/L Canton ClinicAST [Catalytic activity/Vol]8 U/LLow14 - 40 U/LCleveland Clinic Bilirubin [Mass/Vol]0.3 mg/dL0.2 - 1.3 mg/dLCanton ClinicCalcium [Mass/Vol] 9.6 mg/dL8.5 - 10.2 mg/dLCanton ClinicChloride [Moles/Vol]104 mmol/L97 - 105 mmol/LCleveland ClinicCO2 [Moles/Vol]27 mmol/L22 - 30 mmol/LCleveland Clinic Creatinine [Mass/Vol]0.93 mg/dL0.73 - 1.22 mg/dLMiami Valley HospitalGFR/1.73 sq M.predicted among non-blacks MDRD (S/P/Bld) [Vol rate/Area]95 mL/min/{1.73_m2}- PINFClevelMedina HospitalComment on above:Estimated Glomerular Filtration Rate (eGFR) [...] reflect actual GFR.Glucose [Mass/Vol]98 mg/dL74 - 99 mg/dLMiami Valley HospitalComment on above:The [place] Diabetes Association (ADA) provides guidance for cutoff [...] Standards of Medical Care in Diabetes 2016, [place] Diabetes Association. Diabetes Care. 2016.39(Suppl 1). Interpretation and review of laboratory resultsAbnormalCleveland ClinicPotassium [Moles/Vol]4.5 mmol/L3.7 - 5.1 mmol/LCleveland ClinicProtein [Mass/Vol]6.6 g/dL 6.3 - 8.0 g/dLCanton ClinicSodium [Moles/Vol]141 mmol/L136 - 144 mmol/L [facility] HospitalUrea nitrogen [Mass/Vol]12 mg/dL9 - 24 mg/dLSt. Vincent HospitalNo Panel Informationon 98-80-6861Muxfeabyy Study observation (narrative)[facility] aminotransferase [Enzymatic activity/volume] in Serum or PlasmaOrdered By: Griselda Krause on 06-03-0695QCO [Catalytic activity/Vol]7 U/L7-52[facility] CenterAlbumin [Mass/volume] in Serum or Plasma by Bromocresol green (BCG) dye binding methoOrdered By: Griselda Krause on 87-33-5167Tqsiyny BCG dye [Mass/Vol]4.2 g/dL3.5-5.7FUniversity Hospitals Geauga Medical CenterAlkaline phosphatase [Enzymatic activity/volume] in Serum or PlasmaOrdered By: Griselda Krause on 35-53-2111XCN [Catalytic activity/Vol]76 U/L 34-104[facility] Medical CenterAspartate aminotransferase [Enzymatic activity/volume] in Serum or PlasmaOrdered By: Griselda Krause on 90-89-9056EQI [Catalytic activity/Vol]10 U/I45-94IzypnnhhfUniversity Hospitals Lake West Medical CenterBasophils Auto (Bld) [#/Vol]Ordered By: Griselda Krause on 33-30-0958Hkcqmiasc (Bld) [#/Vol]0.0 10*3/uL0.0-0.2FUniversity Hospitals Geauga Medical CenterBasophils/100 WBC Auto (Bld) Ordered By: Griselda Krause on 14-79-9075Fqwuzaiky/100 WBC (Bld)0.9 %.[facility] Medical CenterBilirubin.total [Mass/volume] in Serum or PlasmaOrdered By: Griselda Krause on 69-16-1579Mlukhrekr [Mass/Vol]0.4 mg/dL0.3-1.0[facility] Medical CenterCalcium [Mass/volume] in Serum or PlasmaOrdered By: Griselda Krause on 78-20-3337Pctujwb [Mass/Vol]9.1 mg/dL8.6-10.3FUniversity Hospitals Geauga Medical CenterCarbon dioxide, total [Moles/volume] in Serum or PlasmaOrdered By: Griselda Krause on 51-80-9551XL2 [Moles/Vol]28.3 mmol/L21.0-31.0[facility] CenterChloride [Moles/volume] in Serum or PlasmaOrdered By: Griselda Krause on 36-17-3136Wimfltia [Moles/Vol]105 mmol/Z82-841OsuwesrmnUniversity Hospitals Lake West Medical Center Cholesterol [Mass/volume] in Serum or PlasmaOrdered By: Griselda Krause on 10-24-2022 Cholesterol [Mass/Vol]240 mg/zV010-932KwwwqxrwrUniversity Hospitals Lake West Medical CenterComment on above:Chol less than 200 mg/dl low riskChol 201-239 mg/dl borderline riskChol 240 mg/dl and greater high riskCholesterol in LDL Calc [Mass/Vol]Ordered By: Griselda Krause on 14-64-8924Oxgubbeeunh in LDL [Mass/Vol]169 mg/dL0-100[facility] Medical CenterComment on above:LDL ATP III CLASSIFICATIONLDL less than 100 mg/dL OptimalLDL 100-129 mg/dL Near or above cdpubpkWBA020-015 mg/dL Borderline highLDL 160-189 mg/dL HighLDL greater than 189 mg/dL Very high Cholesterol in VLDL Calc [Mass/Vol]Ordered By: Griselda Krasue on 10-24-2022 Cholesterol in VLDL [Mass/Vol]35 mg/dLUniversity Hospitals Lake West Medical Center Creatinine [Mass/volume] in Serum or PlasmaOrdered By: Griselda Krause on 10-24-2022 Creatinine [Mass/Vol]0.88 mg/dL0.70-1.30[facility] Eosinophils Auto (Bld) [#/Vol]Ordered By: Griselda Krause on 26-66-1847Uxwuijkenhc (Bld) [#/Vol]0.1 10*3/uL0.0-0.45[facility] CenterEosinophils/100 WBC Auto (Bld)Ordered By: Griselda Krause on 65-87-9232Mhmohjxjfnh/100 WBC (Bld)2.0 %.[facility] Medical CenterErythrocyte distribution width Auto (RBC) [Ratio]Ordered By: Griselda Krause on 41-78-4713Ysszlryyyht distribution width (RBC) [Ratio]14.7 %12.0-14.8[facility] Medical CenterGlobulin Calc (S) [Mass/Vol]Ordered By: Griselda Krause on 12-60-9812Krzsyxnc (S) [Mass/Vol]2.1 g/dL [facility] CenterGlucose [Mass/volume] in Serum or PlasmaOrdered By: Griselda Krause on 01-99-3065Aqvteby [Mass/Vol]82 mg/xH07-049UlrcfbqykUniversity Hospitals Lake West Medical CenterComment on above:ADA recommended reference rangeRandom Glucose Reference Range is dependent on time and content of last meal. Glucose of more than 200 mg/dL in a nonstressed, ambulatory subject supports the diagnosisof Diabetes Mellitus.Hematocrit Auto (Bld) [Volume fraction]Ordered By: Griselda Krause on 70-22-4649Qmkbwgjcft (Bld) [Volume fraction]43.4 %38.8-50.0[facility] Medical CenterHemoglobin [Mass/volume] in BloodOrdered By: Griselda Krause on 65-05-3391Bpsufnjisk (Bld) [Mass/Vol]14.5 g/dL13.0-17.0[facility] CenterLeukocytes [#/volume] corrected for nucleated erythrocytes in Blood by Automated counOrdered By: Griselda Krause on 67-43-9043KSV corrected for nucl RBC Auto (Bld) [#/Vol]5.0 10*3/uL4.1-10.5FUniversity Hospitals Geauga Medical Center Lymphocytes Auto (Bld) [#/Vol]Ordered By: Griselda Krause on 53-16-8124Gvgcepkyskk (Bld) [#/Vol]2.0 10*3/uL1.00-4.8[facility] Medical CenterLymphocytes/100 WBC Auto (Bld)Ordered By: Griselda Krause on 86-45-7862Brycvtmggln/100 WBC (Bld)39.8 %.[facility] TroyH Auto (RBC) [Entitic mass]Ordered By: Griselda Krause on 68-34-0214TOJ (RBC) [Entitic mass]31.5 pg27.5-35.2FUniversity Hospitals Geauga Medical CenterMCHC Auto (RBC) [Mass/Vol]Ordered By: Griselda Krause on 04-43-8590AFYE (RBC) [Mass/Vol]33.5 g/dL32.5-35.6FUniversity Hospitals Geauga Medical CenterMCV Auto (RBC) [Entitic vol]Ordered By: Griselda Krause on 25-92-4517NXA (RBC) [Entitic vol]94.0 fL83.5-101[facility] CenterMonocytes Auto (Bld) [#/Vol]Ordered By: Griselda Krause on 90-53-7164Matesarie (Bld) [#/Vol]0.3 10*3/uL0.0-0.8[facility] CenterMonocytes/100 WBC Auto (Bld) Ordered By: Griselda Krause on 85-68-7810Hcjwrnpti/100 WBC (Bld)5.4 %.[facility] Medical CenterNeutrophils Auto (Bld) [#/Vol]Ordered By: Griselda Krause on 34-53-1867Cmkvihvpckj (Bld) [#/Vol]2.6 10*3/uL1.8-7.7FUniversity Hospitals Geauga Medical CenterNeutrophils/100 WBC Auto (Bld)Ordered By: Griselda Krause on 10-24-2022 Neutrophils/100 WBC (Bld)51.9 %.[facility] CenterNo Panel InformationOrdered By: Griselda Krause on 20-82-4635Celcgtedn GFR (CKD-EPI)> 60.0 mL/MinUniversity Hospitals Lake West Medical CenterPharmacy Creatinine Clearance (ChemN/A [facility] Medical CenterNucleated erythrocytes [Presence] in Blood by Automated countOrdered By: Griselda Krause on 11-79-9606Pvjhedtrs RBC Auto Ql (Bld) 0.1 /100{WBC}0-0.5FUniversity Hospitals Geauga Medical CenterPlatelet mean volume Auto (Bld) [Entitic vol]Ordered By: Griselda Krause on 33-45-6133Graozbpa mean volume (Bld) [Entitic vol]9.6 fL6.6-10.1FUniversity Hospitals Geauga Medical CenterPlatelets Auto (Bld) [#/Vol]Ordered By: Griselda Krause on 08-57-3359Wvkixdhqy (Bld) [#/Vol]247 10*3/qV903-624TlxsatfooUniversity Hospitals Lake West Medical CenterPotassium [Moles/volume] in Serum or PlasmaOrdered By: Griselda Krause on 28-72-8594Lmrqlntyz [Moles/Vol]4.0 mmol/L 3.5-5.1FUniversity Hospitals Geauga Medical CenterProstate specific Ag [Mass/volume] in Serum or PlasmaOrdered By: Griselda Krause on 68-23-2350Dxagmjha specific Ag [Mass/Vol]0.370 ng/mL0.000-4.000[facility] CenterProtein [Mass/volume] in Serum or PlasmaOrdered By: Griselda Krause on 70-24-3809Ozzejgb [Mass/Vol]6.3 g/dL6.4-8.9[facility] Medical CenterRBC Auto (Bld) [#/Vol] Ordered By: Griselda Krause on 28-66-2167SRD (Bld) [#/Vol]4.61 10*6/uL3.90-5.60 City Hospitalerum or plasma albumin/globulin mass ratio Ordered By: Griselda Krause on 13-15-5633Oqcvnvq/Globulin [Mass ratio]2.0 {ratio} City Hospitalerum or plasma anion gap determinationOrdered By: Griselda Krause on 16-62-4822Ubnlf gap [Moles/Vol]11.7 mmol/L6.0-15.0City Hospitalerum or plasma high density lipoprotein (HDL) cholesterol measurementOrdered By: Griselda Krause on 28-60-8839Ytqqgiresfo in HDL [Mass/Vol]36 mg/aC96-18YhlskasmrUniversity Hospitals Lake West Medical CenterComment on above:HDL CHOL ATP-III CLASSIFICATION Cardiovascular RiskHDL > or equal to 60 mg/dL LOWHDL < 40 mg/dL HIGHSerum or plasma total cholesterol/high density lipoprotein (HDL) cholesterol mass ratOrdered By: Griselda Krause on 10-24-2022 Cholesterol.total/Cholesterol in HDL [Mass ratio]6.7 {ratio}<5.0City Hospitalodium [Moles/volume] in Serum or PlasmaOrdered By: Griselda Krause on 08-51-8286Saqrnq [Moles/Vol]141 mmol/Z767-791HdsynfnvkUniversity Hospitals Lake West Medical CenterThyrotropin [Units/volume] in Serum or PlasmaOrdered By: Griselda Krause on 91-53-3317BJE Qn1.26 m[IU]/L0.45-5.33[facility] Triglyceride [Mass/volume] in Serum or PlasmaOrdered By: Griselda Krause on 18-75-1925Kakmjqnomthl [Mass/Vol]175 mg/dL0-149[facility] Comment on above:TRIG ATP III CLASSIFICATIONTRIG less than 150 mg/dL NormalTRIG 150-199 mg/dL Borderline highTRIG 200-500 mg/dL High TRIG greater than 500 mg/dL Very highStandard traceable to the Center for Disease Conrtrol and Prevention (CDC) test method.Urea nitrogen [Mass/volume] in Serum or PlasmaOrdered By: Griselda Krause on 86-37-4055Idcl nitrogen [Mass/Vol]15 mg/dL7-25[facility] Medical CenterWBC Auto (Bld) [#/Vol]Ordered By: Griselda Krause on 10-19-3044RBB (Bld) [#/Vol]5.0 10*3/uL4.1-10.5FUniversity Hospitals Geauga Medical CenterBRIEF OP NOTon 70-86-2084XHZBC OP NOTHNO ID: [id number] Author: Flores Cat APRN.ELECTRICAL INTERN Service: Interventional Radiology Author Type: Nurse Practitioner Type: Brief Op Note Filed: 09/28/2022 3:14 PM Note Text: BRIEF OPERATIVE / PROCEDURE NOTE LOG ID: [id number] SURGERY/PROCEDURE DATE: 09/28/2022 INCISION/PROCEDURE START TIME: 1:58 PM INCISION CLOSE/PROCEDURE END TIME: 2:27 PM SURGEON(S)/PROCEDURALIST(S) AND COIN MACHINE SERVICE REPAIRER(S): Surgeon(s) and Role: * Flores Cat APRN.ELECTRICAL INTERN - Primary No Additional Staff SURGERY/PROCEDURE(S): LP [...] Melendez DATE: September 28, 2022 TIME: 3:10 [facility] HospitalIR LUM[facility] PUNCTURE DIAGon 53-21-0416RQ LUMBAR PUNCTURE DIAG* * *Final Report* * * DATE OF EXAM: Sep 28 2022 2:41PM [facility] 7594 - IR LUMBAR PUNCTURE DIAG [...] guidance was performed in conjunction with the electrician technician. Plane A, Air Kerma: 20.0 mGy Dose Area Product (DAP): 90157.1 mGy*cm2 Fluoro time: 3:54 min: sec Post-Procedure: [...] procedure was performed by: Flores Cat APRN.CNP Housefellow: HARPER Transcribe Date/Time: Sep 28 2022 3:15P Dictated by : FLORES CAT CNP This examination was interpreted and the report reviewed and electronically signed by: FLORES CAT CNP on Sep 28 2022 3:22PM EST [id number] General Hospital PROGon [id number] PROGHNO ID: [id number] Author: Court Magana RN Service: Nursing Author [...] Primary Care Provider Electronically Signed By: Court ChristensenSancta Maria Hospital BRAIN WO/W IVCONon 72-59-8651Rpalejwrq ClinicCOVID + FLU Quick Testingon 08-01-2022 SARS-CoV-2 (COVID-19) RNA JER+probe Ql (Unsp spec)NegativeCooper County Memorial HospitalSyntensia Other COVID + FLU Quick TestingneagativeNmercy hospital st. louis [employer] Other COVID + FLU Quick TestingNegativeNosaint john's saint francis hospital [employer] Other RSVon 98-00-1707OCL Ag IA Ql (Unsp spec)PositiveCellufun Other Cerebrospinal fluid post-centrifugation appearance determinationOrdered By: Oziel Cadena on 62-90-8960Qyradukutd (Spun CSF) ColorlessColorlessUniversity Hospitals Lake West Medical CenterCerebrospinal fluid sample tube volume measurementOrdered By: Oziel Cadena on 80-02-0583Ufoijnwi volume (CSF)22.0 mLUniversity Hospitals Lake West Medical CenterColor CSFOrdered By: Oziel Cadena on 14-43-3456Nohyk (CSF)ColorlessColorlessUniversity Hospitals Lake West Medical Center Manual cerebrospinal fluid erythrocytes count (number/volume)Ordered By: Oziel Cadena on 23-18-0899QOT Manual cnt (CSF) [#/Vol]0 /uLUniversity Hospitals Lake West Medical CenterComment on above:The reference interval and other method performance specifications have not been established for this body fluid. The test result must be integrated into the clinical context for interpretation.No Panel InformationOrdered By: Oziel Cadena on 55-40-7806IEW AppearanceClearClear [facility] CenterCSF Tube NumberTube number: 1FUniversity Hospitals Geauga Medical CenterNucleated cells [#/volume] in Cerebral spinal fluid by Manual countOrdered By: Oziel Cadena on 33-90-1409Rnzzbvkdu cells Manual cnt (CSF) [#/Vol]0.003 10*3/uL0-5FUniversity Hospitals Geauga Medical CenterActivated partial thromboplastin time (aPTT) in platelet poor plasma by coagulation aOrdered By: Loi Wong on 48-40-4354iALX Coag (PPP) [Time]32.8 s25.1-36.5FUniversity Hospitals Geauga Medical CenterBasophils Auto (Bld) [#/Vol]Ordered By: Loi Wong on 25-38-1093Wxkqrtbfu (Bld) [#/Vol]0.1 10*3/uL0.0-0.2FUniversity Hospitals Geauga Medical CenterBasophils/100 WBC Auto (Bld)Ordered By: Loi Wong on 04-16-2022 Basophils/100 WBC (Bld)1.2 %.[facility] Medical CenterCreatine kinase [Enzymatic activity/volume] in Serum or PlasmaOrdered By: Loi Wong on 75-72-0115FS [Catalytic activity/Vol]69 U/Q56-459ZsamjmyhkUniversity Hospitals Lake West Medical CenterCreatinine and Glomerular filtration rate.predicted panel (S/P/Bld)Ordered By: Loi Wong on 55-30-3680Unvhjqnuuf [Mass/Vol]0.97 mg/dL0.64-1.27[facility] Medical CenterEosinophils Auto (Bld) [#/Vol]Ordered By: Loi Wong on 56-02-4537Hzqxnkliylr (Bld) [#/Vol]0.1 10*3/uL0.0-0.45[facility] Medical CenterEosinophils/100 WBC Auto (Bld)Ordered By: Loi Wong on 64-28-7060Bgvjzoshxjq/100 WBC (Bld)1.2 %.[facility] Erythrocyte distribution width Auto (RBC) [Ratio]Ordered By: Loi Wong on 84-69-0348Ilneptgojcs distribution width (RBC) [Ratio]14.1 %12.0-14.8[facility] Medical CenterEstimated glomerular filtration rate (GFR) non- AmericanOrdered By: Loi Wong on 14-55-1813CSW/1.73 sq M.predicted among non-blacks MDRD (S/P/Bld) [Vol rate/Area]> 60 mL/MinUniversity Hospitals Lake West Medical CenterHematocrit Auto (Bld) [Volume fraction]Ordered By: Loi Wong on 62-36-4523Siwnggrowl (Bld) [Volume fraction]43.2 %38.8-50.0[facility] Medical CenterHemoglobin [Mass/volume] in BloodOrdered By: Loi Wong on 42-49-8044Uinazqhyxv (Bld) [Mass/Vol]14.7 g/dL13.0-17.0[facility] Medical CenterLaboratory - Chemistry and Chemistry - challengeOrdered By: Loi Wong on 55-68-3069Vzboiffiise peptide B (Bld) [Mass/Vol]29.0 pg/mL5-100 [facility] Medical CenterLaboratory - CoagulationOrdered By: Loi Wong on 21-19-4022XE Coag (PPP) [Time]12.0 s9.0-12.9[facility] CenterLaboratory - Hematology and Cell countsOrdered By: Loi Wong on 21-98-8488Vrhuggofp RBC/100 WBC (Bld) [Ratio]0.1 %0-0.5FUniversity Hospitals Geauga Medical CenterLeukocytes [#/volume] in Blood by Automated countOrdered By: Loi Wong on 50-72-0239RYU (Bld) [#/Vol]7.7 10*3/uL4.5-11.0[facility] Medical CenterLymphocytes Auto (Bld) [#/Vol]Ordered By: Loi Wong on 56-89-2700Ritglgsvtqz (Bld) [#/Vol]2.3 10*3/uL1.00-4.8[facility] Medical CenterLymphocytes/100 WBC Auto (Bld)Ordered By: Loi Wong on 21-17-3410Mhhpmhmwseu/100 WBC (Bld)29.4 %.[facility] Auto (RBC) [Entitic mass]Ordered By: Loi Wong on 69-91-9726HGX (RBC) [Entitic mass]32.0 pg27.5-35.2FUniversity Hospitals Geauga Medical CenterMCHC Auto (RBC) [Mass/Vol]Ordered By: Loi Wong on 43-37-9701ZAJE (RBC) [Mass/Vol]34.0 g/dL 32.5-35.6FUniversity Hospitals Geauga Medical CenterMCV Auto (RBC) [Entitic vol]Ordered By: Loi Wong on 82-37-8365BJA (RBC) [Entitic vol]94.0 fL83.5-101[facility] Medical CenterMonocytes Auto (Bld) [#/Vol]Ordered By: Loi Wong on 28-83-7535Hxlylabht (Bld) [#/Vol]0.6 10*3/uL0.0-0.8[facility] Medical CenterMonocytes/100 WBC Auto (Bld)Ordered By: Loi Wong on 04-16-2022 Monocytes/100 WBC (Bld)7.7 %.[facility] Medical CenterNeutrophils Auto (Bld) [#/Vol]Ordered By: Loi Wong on 58-93-0063Snbaxwkgocl (Bld) [#/Vol]4.7 10*3/uL1.8-7.7FUniversity Hospitals Geauga Medical CenterNeutrophils/100 WBC Auto (Bld) Ordered By: Loi Wong on 75-86-4995Teyereycfve/100 WBC (Bld)60.5 %.[facility] CenterNo Panel InformationOrdered By: Loi Wong on 87-88-6134L-Dimer Quantitative (PE/DVT)< 200 ng/mL0-243[facility] Medical CenterComment on above:The reference range for D-dimer is [...] due toco-morbid conditions.Estimated GFR ()> 60 mL/Min [facility] Medical CenterComment on above:GFR estimated reference range: According to KDOQI guidelines, <60 ml/min/1.73m2 is sufficient todiagnose a patient with chronic kidney disease.Pharmacy Creatinine Clearance (Chem79.33 [facility] Medical CenterPlatelet mean volume Auto (Bld) [Entitic vol] Ordered By: Loi Wong on 48-55-6470Zvsznqjj mean volume (Bld) [Entitic vol] 9.7 fL6.6-10.1FUniversity Hospitals Geauga Medical CenterPlatelet poor plasma international normalized ratio (INR) by coagulation assay (relatOrdered By: Loi Wong on 56-84-8388EJV Coag (PPP) [Relative time]1.1 {INR}[facility] CenterComment on above:INR Therapeutic Range A) Pre- and [...] (Bld) [#/Vol] Ordered By: Loi Wong on 17-98-3380Xwtshwszv (Bld) [#/Vol]238 10*3/bP789-410 [facility] CenterRBC Auto (Bld) [#/Vol]Ordered By: Loi Wong on 03-58-2306TCJ (Bld) [#/Vol]4.59 10*6/uL3.90-5.60[facility] CenterSerum or plasma anion gap determinationOrdered By: Loi Wong on 52-16-9174Ibzty gap [Moles/Vol]12.4 mmol/L6.0-15.0City Hospitalerum or plasma calcium measurement (mass/volume)Ordered By: Loi Wong on 46-26-7738Zshbfuk [Mass/Vol]9.0 mg/dL8.2-10.2FMcKitrick Hospitalerum or plasma chloride measurement (moles/volume)Ordered By: Loi Wong on 76-91-2180Hregaqdy [Moles/Vol]103 mmol/C47-306OyweebkvuCity Hospitalerum or plasma creatine kinase MB (CKMB)/total creatine kinase (CK) ratio by calculaOrdered By: Loi Wong on 14-09-9829TK.MB Calc [Catalytic fraction]2.0 %0.00-2.50City Hospitalerum or plasma creatine kinase MB measurement (mass/volume)Ordered By: Loi Wong on 36-00-1599PI.MB [Mass/Vol]1.4 ng/mL0.6-6.3FMcKitrick Hospitalerum or plasma glucose measurement (mass/volume)Ordered By: Loi Wong on 92-08-7600Mtfbdsz [Mass/Vol]88 mg/eH81-184FlxekpchxUniversity Hospitals Lake West Medical Center Comment on above:ADA recommended reference rangeRandom Glucose Reference Range is dependent on time and content of last meal. Glucose of more than 200 mg/dL in a nonstressed, ambulatory subject supports the diagnosisof Diabetes Mellitus. Serum or plasma potassium measurement (moles/volume)Ordered By: Loi Wong on 43-11-2331Qvmrzuydc [Moles/Vol]4.3 mmol/L3.5-5.1FMcKitrick Hospitalerum or plasma sodium measurement (moles/volume)Ordered By: Loi Wong on 24-50-0346Lhyoud [Moles/Vol]135 mmol/V008-713OupqdtmalCity Hospitalerum or plasma total carbon dioxide measurement (moles/volume)Ordered By: Loi Wong on 91-06-0884XF9 [Moles/Vol]23.9 mmol/L22.0-30.0City Hospitalerum or plasma urea nitrogen measurement (mass/volume) Ordered By: Loi Wong on 22-86-4281Mgwp nitrogen [Mass/Vol]12 mg/dL9-23 [facility] Medical CenterTroponin I.cardiac [Mass/volume] in Serum or Plasma by High sensitivity methodOrdered By: Loi Wong on 33-15-1667Artyfjjh I.cardiac High sensitivity method [Mass/Vol]5 pg/mL0-20[facility] Medical CenterCOVID Quick Testingon 57-82-2606OcedujRkwgbmzdGfvpd [employer] Other Quick Fluon 26-98-1359JVQMS Ab CF (S) [Titer]Negative [facility] [employer] Other FLUBV Ab CF (S) [Titer]NegativeHormigueros [employer] Other MRI Brain w/o + w/on 43-51-2611YFX Brain w/o + w/ HISTORY: Blurred vision, [...] and signed by Jillian Morales on 01/18/2022 1413NolenaalTelmartn Silver Hill HospitalCell Count + Differential, CSFon 33-47-4401CJS (Bld) [#/Vol]0.006 10*3/uLabove high threshold0 - 6BE-Olnzvptfcpac-Tmrltuf Work Phone: [phone] Count + Differential, CSF70 1 RX-Ofkaucdipoza-Eoycrhz Work Phone: [phone] Count + Differential, CSF10 % WL-Iqpaytdxbjvk-Iqjsprk Work Phone: [phone] Count + Differential, CSF60 % OL-Revnyqllgkop-Joofqzq Work Phone: [phone] Count + Differential, CSF30 % EI-Eqcyzsouueme-Zezpqyq Work Phone: [phone] Count + Differential, CSFColorlessCOLORLESS LD-Uhrmnnpoibux-Wpsgggs Work Phone: [phone] Count + Differential, DHO306 /uLabove high threshold0 - 0JS-Fdwksanwztlx-Ohdqifp Work Phone: [phone] Count + Differential, CSFTube 1 OD-Yagjgaerpjdr-Dcdvsvg Work Phone: [phone] Count + Differential, CSFClearCLEAR UR-Lxejbcqemvjx-Nsibqgc Work Phone: [phone], CSF, includes smearon 55-17-7317Ejylyszy identified Cx Nom (CSF)VN-Ykryodcwxxnk-Qkxeteg Work Phone: [phone] 95-46-3944Nijckiz in CSF/Albumin in Serum or Plasma (S/P+CSF) [Relative ratio]7.9 {ratio}0.0-9.1DL-Luylkzqmwfmd-Zuyxjlb Work Phone: [phone] in CSF/Albumin in Serum or Plasma (S/P+CSF) [Relative ratio]StrfhccwRQ-Ulgsnnvzmtuk-Jhddera Work Phone: [phone] - Chemistry and Chemistry - challengeon 38-77-4625Xstqvla (CSF) [Mass/Vol]36 mg/dLabove high threshold0-35 LZ-Ebjgkihpkhly-Adscbtz Work Phone: [phone] [Mass/Vol]4578 mg/qM7768-4128 PA-Avupyrhlepnd-Ylkpnxs Work Phone: [phone] (CSF) [Mass/Vol]2.2 mg/dL0.0-6.0 KY-Imcbrjhyfkzv-Eibdlja Work Phone: [phone] [Mass/Vol]496 mg/dLbelow low mlxlnyjwb330-8402 HG-Vnoodfrnmbpa-Evuzmwt Work Phone: [phone] on above:REFERENCE INTERVAL: Immunoglobulin GAccess complete set of age- and/or gender-specific reference intervals for this test in the [employer] Laboratory Test Directory ([employer]IgG clearance/Albumin clearance (S+CSF) [Ratio]0.56 {ratio}0.28-0.78YL-Xelndnlhjzwn-Akdnkit Work Phone: [phone] synthesis rate Calc (S+CSF) [Mass/Time]0.5 mg/d <=8.0BY-Rbnztngnjieu-Faxbmqc Work Phone: [phone]/Albumin (CSF) [Mass ratio]0.06 {ratio}below low threshold0.09-0.05YV-Ztdwwkjkuyng-Tspadgm Work Phone: [phone] bands Elph (CSF) [Interp]NegativeNegative AA-Wntgcblmpsfh-Wpocuax Work Phone: [phone] bands Elph Curtis (CSF) [Interp]See Note MO-Rofhnieqqmfx-Frjfgyn Work Phone: [phone] on above:Isoelectric focusing/immunofixation revealed no oligoclonal bands in either the CSF or the serum. This is considered to be a negative result for oligoclonal bands. Approximately 5 percent of patientswith clinically definitive multiple sclerosis will have a negative result.Performed By: [facility] [place] [address] [id number] Director: Paula I. Kane, MDAlbumin (CSF) [Mass/Vol]Canceled ZD-Zmlbkjoufkgd-Lxsyrhm Work Phone: [phone] [Mass/Vol]RbdcjhbwBR-Evlmhpfmerpd-Cxezybq Work Phone: [phone] (CSF) [Mass/Vol]56 mg/dL40 - 70 XR-Bxdxqkgrdmok-Yonbvuq Work Phone: [phone] (CSF) [Mass/Vol]VbyfyatlIN-Gdcoqikpcfte-Vtythvk Work Phone: [phone] [Mass/Vol]TjnjugimQH-Skbsezbfxsle-Qzmqapk Work Phone: [phone] clearance/Albumin clearance (S+CSF) [Ratio] OmvmrvzpTP-Rjjaszatgawu-Dubpyiq Work Phone: [phone] synthesis rate Calc (S+CSF) [Mass/Time]Canceled TZ-Mfyxkiywmsif-Lfejucr Work Phone: [phone]/Albumin (CSF) [Mass ratio]Canceled DY-Wlllvxncwyfa-Txjvlbr Work Phone: [phone] bands Elph (CSF) [Interp]Canceled WV-Wydggfjyufpk-Ekuqqbd Work Phone: [phone] bands Elph Curtis (CSF) [Interp]Canceled JY-Smkhwhkhokrq-Aqeojkv Work Phone: [phone] (CSF) [Mass/Vol]66 mg/dLabove high vykfobluq14 - 66YH-Xzqxsdzkhjao-Ygnyukb Work Phone: [phone] Panel Informationon {Bands}0-1 CN-Jrohzyjwvhip-Buuhcll Work Phone: [phone]-Spjzstmrzllp-Lynn Work Phone: [phone]-Daszuegcjedy-Lynn Work Phone: [phone] Review, CSFon 28-61-7898Kbwh Review, CSFR.REHANA XZ-Pzasoflfqapl-Gxdyqqs Work Phone: [phone] on above:By her/his signature above, the Pathologist listed as making the final interpretation certifies that she/he has personally reviewed this case. 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 In [...] He saw Dr. Ba a neurologist in [facility]. He describes his vision as [...] Medical History History of squamous cell carcinoma (V10.) (Z85.89) Surgical History History of Excision melanoma [...] MG Oral Tablet Vitals Vital Signs Recorded: 75Sgl8662 09:38AM Qldtszknzvp85.2 F Heart Rate63 Vrhvgcaddyt89 Tdmpwudb148 Vkckviinn28 Blood Pressure Cuff SizeAdult Height5 ft 7.13 in Hejnug231 lb 6 oz BMI Lzpkuejlhc45.05 kg/m2 BSA Calculated1.91 Tobacco Usea) Yes Fall Screeninga) No falls within the last year O2 Calymimzds40 Pain Scale7 Physical Exam Constitutional - General appearance: No acute distress, well de (more content not included)...NormalUH TouchworksOffice Visit Presurgicalon 38-07-2594Dbozug Visit PresurgicalDiagnoses/Problems Assessed Weight loss (783.21) (R63.4) Anxiety (300.00) (F41.9) Depression (311) (F32.A) History of high cholesterol (V12.29) (Z86.39) Ischemic demyelination of brain (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 In [...] He saw Dr. Ba a neurologist in [facility]. He describes his vision as [...] MG Oral Tablet Vitals Vital Signs Recorded: 31Fkz3970 09:38AM Wimrqwvwpyf01.2 F Heart Rate63 Jjrojeeerue87 Ilpwexcc103 Cwizsusew63 Blood Pressure Cuff SizeAdult Height5 ft 7.13 in Wrvnzb747 lb 6 oz BMI Wfokoloygz06.05 kg/m2 BSA Calculated1.91 Tobacco Usea) Yes Fall Screeninga) No falls within the last year O2 Sgxfuwqfsb92 Pain Scale7 Ph (more content not included)...NormalUH [facility] W Auto Differential panel (Bld)on 27-00-0555Ztyamradf (Bld) [#/Vol]0.06 10*3/uLNINFMiami Valley Hospital Basophils/100 WBC (Bld)0.8 %[facility] HospitalDifferential cell count method Nom (Bld)AutoCleveland ClinicEosinophils (Bld) [#/Vol]0.11 10*3/uLNINFMiami Valley HospitalEosinophils/100 WBC (Bld)1.5 %[facility] HospitalErythrocyte distribution width (RBC) [Ratio]12.8 %11.5 - 15.0 %[facility] HospitalHematocrit (Bld) [Volume fraction]43.7 %39.0 - 51.0 %[facility] HospitalHemoglobin (Bld) [Mass/Vol]14.6 g/dL 13.0 - 17.0 g/dLMiami Valley HospitalImmature granulocytes (Bld) [#/Vol]NINFClevelMedina HospitalImmature granulocytes/100 WBC (Bld)0.3 %[facility] HospitalLymphocytes (Bld) [#/Vol]1.75 10*3/uLMiami Valley HospitalLymphocytes/100 WBC (Bld)23.7 %[facility] JacksonH (RBC) [Entitic mass]32.7 pg26.0 - 34.0 pgClevelMaple Grove HospitalHC (RBC) [Mass/Vol]33.4 g/dL30.5 - 36.0 g/dLHolzer Medical Center – JacksonV (RBC) [Entitic vol]98.0 fL80.0 - 100.0 fLCleveland ClinicMonocytes (Bld) [#/Vol]0.52 10*3/uLNINF [facility] HospitalMonocytes/100 WBC (Bld)7.0 %[facility] HospitalNeutrophils (Bld) [#/Vol]4.92 10*3/uLMiami Valley HospitalNeutrophils/100 WBC (Bld)66.7 %[facility] HospitalNucleated RBC (Bld) [#/Vol]NINFCleveland ClinicNucleated RBC/100 WBC (Bld) [Ratio]0.0 %/100 WBCMiami Valley HospitalPlatelet mean volume (Bld) [Entitic vol] 10.8 fL9.0 - 12.7 [facility] ClinicPlatemetropolitan state hospital (Bld) [#/Vol]246 10*3/[facility] HospitalRBC (Bld) [#/Vol]4.46 10*6/uL4.20 - 6.00 m/[facility] HospitalWBC (Bld) [#/Vol]7.38 10*3/[facility] HospitalThis is an appended report. These results have been appended to a previously verified report.[facility] HospitalCT Chest W contrast Tristin 26-62-9894GALRWQWQNI: 1. Left-sided subcentimeter pulmonary nodules, stable. 2. [...] any questions regarding this interpretation, please call [phone]. If you are unable to reach us at the number above, please feel free to contact [facility] eRadiology at [phone]. MATHEW_DO_NOT_USE_DIVISION OF RADIOLOGY* * *Final Report* * * DATE OF EXAM: Oct 06 2021 8:22AM [facility] 0539 - CT CHEST W [...] images through the upper abdomen appear stable. International Affairs Vice President (topogram) images: No additional findings. ZZZ_DO_NOT_USE_DIVISION OF RADIOLOGYProvider, [facility] [place] - 10/06/2021 * * *Final Report* * * DATE OF EXAM: Oct 06 2021 8:22AM [facility] 0539 - CT CHEST W [...] images through the upper abdomen appear stable. International Affairs Vice President (topogram) images: No additional findings. IMPRESSION IMPRESSION: [...] any questions regarding this interpretation, please call [phone]. If you are unable to reach us at the number above, please feel free to contact [facility] eRadiology at [phone]. [facility] HospitalCT Neck W contrast Tristin 83-68-1344MHDJENPWGA: MODERATE DEGENERATIVE CHANGES INVOLVING THE CERVICAL SPINE. [...] any questions regarding this interpretation, please call [phone]. If you are unable to reach us at the number above, please feel free to contact [facility] at [phone]. ZZZ_DO_NOT_USE_DIVISION OF RADIOLOGY* * *Final Report* * * DATE OF EXAM: Oct 06 2021 8:22AM [facility] 0013 - CT NECK SOFT [...] carotid bifurcations and carotid siphons. ZZZ_DO_NOT_USE_DIVISION OF RADIOLOGYProvider, [facility] [place] - 10/06/2021 * * *Final Report* * * DATE OF EXAM: Oct 06 2021 8:22AM [facility] 0013 - CT NECK SOFT [...] any questions regarding this interpretation, please call [phone]. If you are unable to reach us at the number above, please feel free to contact [facility] eRadiology at [phone]. [facility] HospitalCT Neck W contrast IVOrdered By: Ccf Provider on 10-06-2021 [facility] HospitalComprehensive metabolic 2000 panelOrdered By: Micheal Vizcaino on 11-44-1499Nwxcccn [Mass/Vol]4.5 g/dL3.9 - 4.9 g/dLCanton ClinicALP [Catalytic activity/Vol]82 U/L38 - 113 U/LCleveland ClinicALT [Catalytic activity/Vol]25 U/L10 - 54 U/LCleveland ClinicAnion gap [Moles/Vol]10 mmol/L9 - 18 mmol/L Canton ClinicAST [Catalytic activity/Vol]21 U/L14 - 40 U/LCleveland [facility] Bilirubin [Mass/Vol]0.6 mg/dL0.2 - 1.3 mg/dLCanton ClinicCalcium [Mass/Vol] 9.5 mg/dL8.5 - 10.2 mg/dLCanton ClinicChloride [Moles/Vol]106 mmol/LHigh97 - 105 mmol/LCleveland ClinicCO2 [Moles/Vol]29 mmol/L22 - 30 mmol/LCst. anthony's hospitaland Clinic Creatinine [Mass/Vol]1.01 mg/dL0.73 - 1.22 mg/dLMiami Valley HospitalGFR/1.73 sq M.predicted among non-blacks MDRD (S/P/Bld) [Vol rate/Area]86 mL/min/{1.73_m2}- PINFCleveland ClinicComment on above:Estimated Glomerular Filtration [...] eGFRmay not accurately reflect actual GFR.Glucose [Mass/Vol]107 mg/gJWpnh05 - 99 mg/dLMiami Valley HospitalComment on above:The [place] Diabetes Association (ADA) provides guidance for cutoff [...] Standards of Medical Care in Diabetes 2016, [place] [employer] Association. Diabetes Care. 2016.39(Suppl 1). Interpretation and review of laboratory resultsAbnormalCleveland ClinicPotassium [Moles/Vol]4.2 mmol/L3.7 - 5.1 mmol/LCleveland ClinicProtein [Mass/Vol]6.5 g/dL 6.3 - 8.0 g/dLCanton ClinicSodium [Moles/Vol]145 mmol/KAhzk320 - 144 mmol/L [facility] HospitalUrea nitrogen [Mass/Vol]10 mg/dL9 - 24 mg/dLSt. Vincent HospitalNo Panel Informationon 69-84-6598Qznotuutx Study observation (narrative)[facility] HospitalCOVID + FLU Quick Testingon 70-36-3999PYSL-CoV-2 (COVID-19) RNA JER+probe Ql (Unsp spec)NegativeNort [employer] Other COVID + FLU Quick TestingNegativeHormigueros [employer] Other COVID Quick Testingon 63-14-5357UgqqtkSwgezbiaMtgsc [employer] Other Basophils Auto (Bld) [#/Vol]on 41-67-7282Acvryzofv (Bld) [#/Vol]0.0 10*3/uL0.0-0.2FWright-Patterson Medical Center CtrBasophils/100 WBC Auto (Bld)on 12-19-2779Ankdjwoto/100 WBC (Bld)0.6 %[facility] CtrBlood hemoglobin measurement (mass/volume)on 73-89-2942Mofrzcuaic (Bld) [Mass/Vol]14.4 g/dL13.0-17.0[facility] CtrBlood leukocytes automated count (number/volume)on 16-68-0438AOZ (Bld) [#/Vol]7.4 10*3/uL4.5-11.0 [facility] CtrEosinophils Auto (Bld) [#/Vol]on 09-20-2020 Eosinophils (Bld) [#/Vol]0.1 10*3/uL0.0-0.45[facility]tr Eosinophils/100 WBC Auto (Bld)on 48-37-1412Zybpzempbgt/100 WBC (Bld)0.9 % [facility] CtrErythrocyte distribution width Auto (RBC) [Ratio] on 68-79-9110Zcmlnvfkylc distribution width (RBC) [Ratio]14.6 %12.0-14.8 [facility] CtrHematocrit Auto (Bld) [Volume fraction]on 04-72-6753Bwleiadicu (Bld) [Volume fraction]41.7 %38.8-50.0[facility] CtrLymphocytes Auto (Bld) [#/Vol]on 48-28-4274Bqjczcubzlk (Bld) [#/Vol] 1.6 10*3/uL1.00-4.8[facility] CtrLymphocytes/100 WBC Auto (Bld) on 72-66-0568Ekyqsgzlkes/100 WBC (Bld)21.3 %[facility] HospitalMCH Auto (RBC) [Entitic mass]on 61-55-7508HZE (RBC) [Entitic mass]32.4 pg27.5-35.2 [facility] HospitalMCHC Auto (RBC) [Mass/Vol]on 98-92-3080OWHN (RBC) [Mass/Vol]34.5 g/dL32.5-35.6FOhioHealth Hardin Memorial HospitalMCV Auto (RBC) [Entitic vol]on 28-27-4016GKR (RBC) [Entitic vol]93.9 fL83.5-101[facility] CtrMonocytes Auto (Bld) [#/Vol]on 87-96-3642Mjqdzvlnh (Bld) [#/Vol]0.6 10*3/uL0.0-0.8[facility] CtrMonocytes/100 WBC Auto (Bld)on 35-32-7116Tkvonhnau/100 WBC (Bld)8.6 %[facility] Ctr Neutrophils Auto (Bld) [#/Vol]on 61-27-5253Toxshimcqsb (Bld) [#/Vol]5.1 10*3/uL 1.8-7.7FWright-Patterson Medical Center CtrNeutrophils/100 WBC Auto (Bld)on 09-20-2020 Neutrophils/100 WBC (Bld)68.6 %[facility] CtrOtheron 09-20-2020 Nucleated RBC/100 WBC (Bld) [Ratio]0.0 %0-0.5FWright-Patterson Medical Center Ctr Platelet mean volume Auto (Bld) [Entitic vol]on 35-46-8891Zpecntsr mean volume (Bld) [Entitic vol]9.3 fL6.6-10.1FWright-Patterson Medical Center CtrPlatelets Auto (Bld) [#/Vol]on 52-00-2124Ximqbglva (Bld) [#/Vol]182 10*3/bM090-762ZazjqsxylMercy Health Willard Hospital CtrRBC Auto (Bld) [#/Vol]on 20-91-5791AAD (Bld) [#/Vol]4.44 10*6/uL3.90-5.60[facility] CtrBody fluid albumin measurement (mass/volume)on 23-25-0369Wkyabzn (Body fld) [Mass/Vol]4.3 g/dL3.2-5.5FWright-Patterson Medical Center CtrCholesterol [Mass/volume] in Serum or Plasmaon 09-13-2020 Cholesterol [Mass/Vol]219 mg/dO823-599YfjeabfqdMercy Health Willard Hospital CtrComment on above:Chol less than 200 mg/dl low riskChol 201-239 mg/dl borderline riskChol 240 mg/dl and greater high riskCholesterol in LDL Calc [Mass/Vol]on 09-13-2020 Cholesterol in LDL [Mass/Vol]149 mg/dL0-100[facility] CtrComment on above:LDL ATP III CLASSIFICATIONLDL less than 100 mg/dL OptimalLDL 100-129 mg/dL Near or above tdomrvoNOX605-209 mg/dL Borderline highLDL 160-189 mg/dL HighLDL greater than 189 mg/dL Very highCholesterol in VLDL Calc [Mass/Vol]on 83-87-2338Sicjvufxsck in VLDL [Mass/Vol]28 mg/dLMercy Health Willard Hospital Ctr Creatinine and Glomerular filtration rate.predicted panel (S/P/Bld)on 09-13-2020 Creatinine [Mass/Vol]0.89 mg/dL0.64-1.27[facility] CtrGFR/1.73 sq M.predicted among non-blacks MDRD (S/P/Bld) [Vol rate/Area]on 09-13-2020 GFR/1.73 sq M predicted among non-blacks MDRD (S/P/Bld) [Vol rate/Area]> 60 mL/MinMercy Health Willard Hospital CtrGlobulin Calc (S) [Mass/Vol]on 09-13-2020 Globulin (S) [Mass/Vol]2.0 g/dLMercy Health Willard Hospital CtrNo Panel Informationon 98-42-3187Lyopotccp GFR ()> 60 mL/MinMercy Health Willard Hospital CtrComment on above:GFR estimated reference range: According to KDOQI guidelines, <60 ml/min/1.73m2 is sufficient todiagnose a patient with chronic kidney disease.Otheron 31-27-6924AWU/1.73 sq M.predicted MDRD (S/P/Bld) [Vol rate/Area]> 60 mL/MinMercy Health Willard Hospital CtrComment on above:GFR estimated reference range: According to KDOQI guidelines, <60 ml/min/1.73m2 is sufficient todiagnose a patient with chronic kidney disease.Pharmacy Creatinine Clearance (ChemN/[facility] CtrProstate Specific Antigen Screen 0.480 ng/mL0.000-4.000[facility] CtrProtein [Mass/volume] in Serum or Plasmaon 10-53-4150Udquxfy [Mass/Vol]6.3 g/dL6.1-7.9[facility] PdwGMGN-AeG-4 (COVID-19) IgG Ab [Presence] in Serum or Plasma by Immunoassayon 80-43-0572ITYM-CoV-2 (COVID-19) IgG Ab [Presence] in Serum or Plasma by ImmunoassayPositiveNegativeBrown Memorial HospitalComment on above:Results suggest recent or prior infection with SARS-CoV-2.Correlation with epidemiologic risk factors and otherclinical and laboratory findings is recommended. Serologicresults should not be used as the sole basis to diagnose orexclude recent SARS-CoV-2 infection. False positive resultsinfrequentlyoccur due to prior infection with other humanCoronaviruses.This assay was performed using the [employer](R)SARS-CoV-2 S1/S2 IgG assay.This assay detects antibodies against SARS-CoV-2 spikeprotein including the receptor binding domain (RBD).Performed at: [address] [id number] Director: Florencio Wu PhD, Phone: [phone]-VrU-3 (COVID-19) IgG IA QlPositiveNegOhioHealth Doctors Hospital CtrComment on above:Results suggest recent or prior infection with SARS-CoV-2.Correlation with epidemiologic risk factors and otherclinical and laboratory findings is recommended. Serologicresults should not be used as the sole basis to diagnose orexclude recent SARS-CoV-2 infection. False positive resultsinfrequentlyoccur due to prior infection with other humanCoronaviruses.This assay was performed using the [employer](R)SARS-CoV-2 S1/S2 IgG assay.This assay detects antibodies against SARS-CoV-2 spikeprotein including the receptor binding domain (RBD).Performed at: [address] [id number] Director: Florencio Wu PhD, Phone: [phone] or plasma alanine aminotransferase measurement without P-5'-P (enzymatic activion 33-55-0684BXF No additional P-5'-P [Catalytic activity/Vol]19 U/G37-00HskpijlirMercy Health Willard Hospital CtrSerum or plasma albumin/globulin mass ratioon 09-13-2020 Albumin/Globulin [Mass ratio]2.2 {ratio}[facility] CtrSerum or plasma alkaline phosphatase measurement (enzymatic activity/volume)on 09-13-2020 ALP [Catalytic activity/Vol]53 U/M49-55KvbfrebanMercy Health Willard Hospital CtrSerum or plasma aspartate aminotransferase measurement (enzymatic activity/volume)on 01-54-1621CDC [Catalytic activity/Vol]22 U/V59-08TstrylbnjBrown Memorial Hospital Serum or plasma calcium measurement (mass/volume)on 75-42-2919Fohdjax [Mass/Vol] 9.1 mg/dL8.2-10.2FWright-Patterson Medical Center CtrSerum or plasma chloride measurement (moles/volume)on 03-58-7259Kndsprke [Moles/Vol]105 mmol/L95-114 [facility] CtrSerum or plasma glucose measurement (mass/volume) on 24-93-6810Ykyjtfw [Mass/Vol]97 mg/wN45-761RxxqsajkzBrown Memorial Hospital Comment on above:ADA recommended reference rangeRandom Glucose Reference Range is dependent on time and content of last meal. Glucose of more than 200 mg/dL in a nonstressed, ambulatory subject supports the diagnosisof Diabetes Mellitus. Serum or plasma high density lipoprotein (HDL) cholesterol measurementon 73-73-1758Ggzbaevuiao in HDL [Mass/Vol]41 mg/mC27-78JkbgnjollMercy Health Willard Hospital CtrComment on above:HDL CHOL ATP-III CLASSIFICATION Cardiovascular RiskHDL > or equal to 60 mg/dL LOWHDL < 40 mg/dL HIGHSerum or plasma potassium measurement (moles/volume)on 28-30-3862Lfpqkhcfk [Moles/Vol]4.2 mmol/L3.5-5.1FWright-Patterson [facility] CtrSerum or plasma sodium measurement (moles/volume)on 75-29-1042Jnywuc [Moles/Vol]135 mmol/D141-615TyrvfapriMercy Health Willard Hospital CtrSerum or plasma thyroid stimulating hormone (TSH) measurement by high sensitivity met on 53-16-5035WXE Qn1.66 u[iU]/mL0.45-5.33[facility] CtrSerum or plasma total bilirubin measurement (mass/volume)on 43-99-3117Gmthlgicb [Mass/Vol]0.9 mg/dL0.3-1.2FWright-Patterson [facility] CtrSerum or plasma total carbon dioxide measurement (moles/volume)on 26-03-8407UR3 [Moles/Vol]22.5 mmol/L 22.0-30.0[facility] CtrSerum or plasma total cholesterol/high density lipoprotein (HDL) cholesterol mass gia 09-13-2020 Cholesterol.total/Cholesterol in HDL [Mass ratio]5.3 {ratio}[facility] CtrSerum or plasma urea nitrogen measurement (mass/volume)on 09-13-2020 Urea nitrogen [Mass/Vol]12 mg/dL9-23[facility] CtrTSH DL <= 0.005 mIU/L Qnon 33-15-2021BVL Qn1.66 m[IU]/L0.45-5.33[facility] CtrTriglyceride [Mass/volume] in Serum or Plasmaon 68-20-1551Wqhkilxsjfqq [Mass/Vol]144 mg/pD44-459NjgrsgigiMercy Health Willard Hospital CtrComment on above:TRIG ATP III CLASSIFICATIONTRIG less than 150 mg/dL NormalTRIG 150-199 mg/dL Borderline highTRIG 200-500 mg/dL High TRIG greater than 500 mg/dL Very highStandard traceable to the Center for Disease Conrtrol and Prevention (CDC) test method. History and Physicalon 77-95-9370Vmduzji and PhysicalHOSPITAL REGULATIONS: ALL Positive Important Negative [...] eye. Coleen Grajeda M.D. aek Dictated: 04/14/2019 #[id number] Typed 04/14/2019 #[id number] cc: Coleen Grajeda M.D.[facility] County HospitalComment on above:Result Comment: Electronically Signed By: Coleen Grajeda MD.br\Date and Time Signed: 04/18/19 09:54 EDTOperative Reporton 53-97-6632Sptlcyfki ReportDate of Surgery: 04/14/2019 SURGEON: Coleen Grajeda [...] and inferior fornices of the eye. A Collaxan manometer was set on the eye at [...] condition. Coleen Grajeda M.D. 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 Name: SHANTEL MELENDEZ/Sex: 1960 Male Med Rec #: [id number] Physician: Coleen Grajeda MD Financial #: [id number] Pt. Type: A Room/Bed: [facility]/ Admit/Disch: 04/14/19 12:59:00 - 04/14/19 16:00:00 Institution: [...] Case Attendee Taras NORRIS, Coleen Alves CST, Asay Karimi RN, Johnathon Mullins Role Performed Surgeon - Primary Scrub - Primary Outdoor Landscape Architect - Primary Time In 04/14/19 14:55:00 04/14/19 [...] VERNON, Pauly GOODEN, RN, Tierra Role Performed Outdoor Landscape Architect - Primary Outdoor Landscape Architect - Relief Time In 04/14/19 14:55:00 04/14/19 [...] Unable to Visualize, Outcomes Met? Yes Warm, [place], Dry Last Modified By: Johnathon Karimi RN [...] RN Patient Status Stable Skin. Condition Warm, [place], Dry Description unchanged Airway Maintenance Oxygen in [...] LENS(Left) Implant Identification FT Description MONTY IOL [id number] SOFPORT Serial Number [id number] SIZE 21.0 [[id number] 21.0][F] Lot Number [id number] Surgical Oncologist FT-BAUSCH [employer] LOM[employer] Catalog ?# [id number] 21.0[F] Expiration Date 10/16/23 Unique Device [id number] Identifier (BERNARD) Usage Data FT Implant Site [...] RN 04/14/19 15:16 Asya Alves CST 04/15/19 14:44NoVeterans Health AdministrationInpatient Patient Summaryon [id number] Patient SummaryPrem[facility] Instructions PERSON INFORMATION Name: SHANTEL MELENDEZ PHYSICIANS Admitting Physician: Coleen Grajeda MD Attending Physician: Coleen Grajeda MD PCP: JILLIAN BARONE DO Discharge Diagnosis: Cataract Comment: PATIENT EDUCATION INFORMATION Instructions: Medication Leaflets: Follow up: With: Address: When: Coleen Grajeda [address] [place] [address] [facility] () Comments: Call physician if symptoms worsen Keep scheduled appointment [facility] L[facility] Recordon [id number] OR PACU II RecordPACU Phase II Document Type FT Summary Primary Physician: Coleen Grajeda MD Finalized Date/Time: 04/14/19 17:54:42 Pt. Name: SHANTEL MELENDEZ D.O.B./Sex: 1960 Male Med Rec #: [id number] Physician: Coleen Grajeda MD Financial #: [id number] Pt. Type: A Room/Bed: [facility]/01 Admit/Disch: 04/14/19 12:59:23 - Institution: Case Times [...] Signatures Signed By: Lizeth Rush RN 04/14/19 17:54NoalH[facility] HospitalMain [facility] Preoperative Recordon [id number] OR Preoperative RecordPreOp Document Type FT Summary Primary Physician: Coleen Grajeda MD Finalized Date/Time: 04/14/19 15:14:03 Pt. Name: SHANTEL MELENDEZ Fatimah /Sex: 1960 Male Med Rec #: [id number] Physician: Coleen Grajeda MD Financial #: [id number] Pt. Type: A Room/Bed: [place] [address] Admit/Disch: 04/14/19 12:59:23 - Institution: Case Times [...] Signatures Signed By: Johnathon Karimi RN 04/14/19 15:14NoVeterans Health AdministrationPatient Education - Texton [id number] Education - TextPaul[facility] Hospital Vital Signs Date TimeVital SignValuePerforming JmlnzofpiBamwwdck72-74-6933 13:58-0500Body .72 cmBreaidan Spaciety ([employer]) DO Work Phone: [facility]11-10-2025 13:58-0500 Body mass index (BMI) [Ratio]24.5 kg/z7Mbtjk Bonfyres DO Work Phone: [facility]11-10-2025 13:58-0500 Body duyumm32.02 kgBrett Bonfyres DO Work Phone: [facility]11-10-2025 13:58-0500 Diastolic blood lncokhec12 mm[Hg]Griselda Andreas DO Work Phone: [facility]11-10-2025 13:58-0500 Heart rate76 /minBrett Andreas DO Work Phone: 1(419)[address]11-10-2025 13:58-0500 Respiratory rate18 /minBrett Kuns DO Work Phone: 1(228)[address]11-10-2025 13:58-0500 SaO2% (BldA) [Mass fraction]98 %Griselda Kuns DO Work Phone: 1(872)[address]11-10-2025 13:58-0500 Systolic blood aopseapf893 mm[Hg]Griselda Kuns DO Work Phone: 1(704)[address] [place], [place] 2438110-15-2025 14:04-0400 Body fevhcx859.72 cmBrett Kuns DO Work Phone: 1(901)[address] [place], [place] 2438110-15-2025 14:04-0400 Body mass index (BMI) [Ratio]24.1 kg/r3Dogwo Kuns DO Work Phone: 1(837)[address] [place], [place] 2438110-15-2025 14:04-0400 Body blsjko07.12 kgBrett Kuns DO Work Phone: 1(048)[address] [place], [place] 2438110-15-2025 14:04-0400 Diastolic blood mm[Hg]Griselda Kuns DO Work Phone: 1(030)[address] [place], [place] 2438110-15-2025 14:04-0400 Heart axmp711 /minBrett Kuns DO Work Phone: 1(134)6-[address] [place], [place] 9917010-15-2025 14:04-0400 Respiratory rate16 /minBrett Kuns DO Work Phone: 1(516)5-[address] [place], [place] 9917010-15-2025 14:04-0400 SaO2% (BldA) [Mass fraction]99 %Griselda Kuns DO Work Phone: 1(095)[address]10-15-2025 14:04-0400 Systolic blood ntqtkrpi606 mm[Hg]Griselda Kuns DO Work Phone: 1(651)[address] [place], [place] 2438109-04-2025 11:25-0400 Body fxsrao935.72 cmBrett Kuns DO Work Phone: 1(769)[address]09-04-2025 11:25-0400 Body mass index (BMI) [Ratio]24.1 kg/z8Ttwfc Kuns DO Work Phone: 1(729)[address] [place], [place] 2438109-04-2025 11:25-0400 Body cqzpyt50.12 kgBrett Kuns DO Work Phone: 1(871)[address] [place], [place] 2438109-04-2025 11:25-0400 Diastolic blood qrfpfujk44 mm[Hg]Griselda Kuns DO Work Phone: 1(618)[address] [place], [place] 2438109-04-2025 11:25-0400 Heart wrqp050 /minBrett Andreas DO Work Phone: 1(467)[address] [place], [place] 2438109-04-2025 11:25-0400 Respiratory rate16 /minBreaidan Eckerts DO Work Phone: 1(510)[address] [place], [place] 2438109-04-2025 11:25-0400 SaO2% (BldA) [Mass fraction]98 %Griseldaaidan Eckerts DO Work Phone: 1(524)[address] [place], [place] 2438109-04-2025 11:25-0400 Systolic blood htxzihhr639 mm[Hg]Griselda Kuns DO Work Phone: 1(538)[address] [place], [place] 2438108-20-2025 14:41-0400 Body mass index (BMI) [Ratio]24.18 kg/i4YwgxgswOziel Cadena MD Work Phone: [facility] SystemAysjctgcgx22-41-4784 14:41-0400Body .12 kgOziel Cadena MD Work Phone: [facility] SystemNtigkjahjp40-96-2220 14:41-0400Diastolic blood pcchpuwd89 mm[Hg]Oziel Cadena MD Work Phone: [facility] SystemVrastgohhw16-80-9268 14:41-0400Heart qyir017 /min Oziel Cadena MD Work Phone: 1(440)[address] [place], [place] 4979608-20-2025 14:41-0400Systolic blood ftslqdoz747 mm[Hg]Oziel Cadena MD Work Phone: 1([phone] SystemOxjortxmqm41-47-1203 15:20-0400Body .72 cmBrett Kuns DO Work Phone: [facility]07-28-2025 15:20-0400 Body mass index (BMI) [Ratio]27 kg/t0Fxcrz Kuns DO Work Phone: [facility]07-28-2025 15:20-0400 Body wyhljr61.73 kgBrett Kuns DO Work Phone: [phone]([phone]07-28-2025 15:20-0400 Diastolic blood mm[Hg]Griselda Kuns DO Work Phone: [facility]07-28-2025 15:20-0400 Heart rate76 /minBrett Kuns DO Work Phone: [phone]07-28-2025 15:20-0400 Systolic blood mm[Hg]Griselda Kuns DO Work Phone: [phone]07-09-2025 14:12-0400 Body mass index (BMI) [Ratio]25.09 kg/z1RghsbfnOziel Cadena MD Work Phone: [phone] SystemVtyxtidifh19-73-6508 14:12-0400Body .84 kgOziel Cadena MD Work Phone: [phone] SystemBrlqldzdgg06-78-4963 14:12-0400Diastolic blood izurospo69 mm[Hg]Oziel Cadena MD Work Phone: 1([phone] [place], [place] [address]Rjdbskvtxi28-96-9160 14:12-0400Heart rate85 /min Oziel Cadena MD Work Phone: 1([phone] SystemEigrmkyopk65-16-5513 14:12-0400Systolic blood jvpxaqmv016 mm[Hg]Oziel Cadena MD Work Phone: [facility] SystemPfrzazghhl38-33-1185 14:04-0400Body .72 cmBrett Kuns DO Work Phone: [phone]06-04-2025 14:04-0400 Body kvhalnhhfva658.7 [degF]Griselda Kuns DO Work Phone: 1(802)886-[address] [place], [place] 9917006-04-2025 14:04-0400 Heart rate96 /minBrett Kuns DO Work Phone: 1(304)[address]06-04-2025 14:04-0400 Respiratory rate18 /minBrett Kuns DO Work Phone: 1(070)[address]06-04-2025 14:04-0400 SaO2% (BldA) [Mass fraction]99 %Griselda Kuns DO Work Phone: 1(769)[address]06-02-2025 14:03-0400 Body dvjofb002.72 cmBrett Kuns DO Work Phone: 1(629)1-[address] [place], [place] 9917006-02-2025 14:03-0400 Body mass index (BMI) [Ratio]26.3 kg/m8Qqubc Kuns DO Work Phone: 1(407)8-[address] [place], [place] 9917006-02-2025 14:03-0400 Body adiczd64.47 kgBrett Kuns DO Work Phone: 1(870)[address] [place], [place] 9917006-02-2025 14:03-0400 Diastolic blood zzqmildj76 mm[Hg]Griselda Kuns DO Work Phone: 1(866)5-[address] [place], [place] 9917006-02-2025 14:03-0400 Heart nzng594 /minBrett Kuns DO Work Phone: 1(870)[address] [place], [place] 9917006-02-2025 14:03-0400 Systolic blood lugpbaah822 mm[Hg]Griselda Kuns DO Work Phone: 1(406)[address]05-21-2025 10:30-0400 Diastolic blood vckxyxah70 mm[Hg]Griselda Kuns DO Work Phone: [facility]05-21-2025 10:30-0400 Heart rate71 /minBrett Kuns DO Work Phone: 1(001)[address]05-21-2025 10:30-0400 Respiratory rate20 /minBrett Kuns DO Work Phone: 1(389)1-[address] [place], [place] 9917005-21-2025 10:30-0400 SaO2% (BldA) [Mass fraction]98 %Griselda Kuns DO Work Phone: 1(947)[address]05-21-2025 10:30-0400 Systolic blood renaandl883 mm[Hg]Griselda Kuns DO Work Phone: 1(549)[address] [place], [place] 2438105-21-2025 07:12-0400 Body fysnqv023.72 cmBrett Kuns DO Work Phone: 1(662)[address] [place], [place] 2438105-21-2025 07:12-0400 Body .11 kgBrett Kuns DO Work Phone: 1(242)[address]05-12-2025 09:57-0400 Body crdtqi564.72 cmBrett Kuns DO Work Phone: 1(539)[address] [place], [place] 2438105-12-2025 09:57-0400 Body mass index (BMI) [Ratio]26.4 kg/g7Yrafk Kuns DO Work Phone: 1(563)[address]05-12-2025 09:57-0400 Body .92 kgBrett Kuns DO Work Phone: 1(357)[address]05-12-2025 09:57-0400 Diastolic blood mm[Hg]Griselda Kuns DO Work Phone: 1(712)[address]05-12-2025 09:57-0400 Heart rate64 /minBrett Kuns DO Work Phone: 1(491)8-[address] [place], [place] 9917005-12-2025 09:57-0400 Respiratory rate18 /minBrett Kuns DO Work Phone: [facility]05-12-2025 09:57-0400 SaO2% (BldA) [Mass fraction]98 %Griselda Kuns DO Work Phone: [facility]05-12-2025 09:57-0400 Systolic blood sjlrlfyf763 mm[Hg]Griselda Kuns DO Work Phone: [facility]04-28-2025 09:06-0400 Body rhftop657.7 cmDoretha Harris MD Work Phone: [phone])216-[address] [place], [place] 3056504-28-2025 09:06-0400 Body mass index (BMI) [Ratio]25.54 kg/a5QvuvkwvDoretha Harris MD Work Phone: [phone])[address]04-28-2025 09:06-0400 Body rxdkzo61.2 kgDoretha Harris MD Work Phone: [phone])113-[address] [place], [place] 3056504-28-2025 09:06-0400 Diastolic blood xilsvbel43 mm[Hg]Doretha Harris MD Work Phone: [phone])524-[address] [place], [place] 3056504-28-2025 09:06-0400 Heart rate75 /minDoretha Harris MD Work Phone: [phone])[phone] [place], [place] 3056504-28-2025 09:06-0400 Systolic blood heifbdaq355 mm[Hg]Doretha Harris MD Work Phone: [phone])894-[address] [place], [place] 3056504-25-2025 13:05-0400 Body ypakrh306.72 cmBrett Kuns DO Work Phone: [facility]04-25-2025 13:05-0400 Body mass index (BMI) [Ratio]25.4 kg/w0Ikqeo Kuns DO Work Phone: [facility]04-25-2025 13:05-0400 Body buxyar12.74 kgBrett Kuns DO Work Phone: [phone]04-25-2025 13:05-0400 Diastolic blood hnzdkdfe80 mm[Hg]Griselda Kuns DO Work Phone: 1(937)[address]04-25-2025 13:05-0400 Heart rate76 /minBrett Kuns DO Work Phone: 1(784)[address]04-25-2025 13:05-0400 Systolic blood cnnejrnj81 mm[Hg]Griselda Kuns DO Work Phone: 1(386)[address]04-21-2025 18:42-0400 Diastolic blood agsoxvtc46 mm[Hg]Griselda Kuns DO Work Phone: 1(388)[address] [place], [place] 2438104-21-2025 18:42-0400 Heart rate80 /minBrett Kuns DO Work Phone: 1(198)[address] [place], [place] 2438104-21-2025 18:42-0400 Respiratory rate16 /minBrett Kuns DO Work Phone: 1(478)[address]04-21-2025 18:42-0400 SaO2% (BldA) [Mass fraction]98 %Griselda Kuns DO Work Phone: 1(823)[address]04-21-2025 18:42-0400 Systolic blood mm[Hg]Griselda Kuns DO Work Phone: 1(497)6-[address] [place], [place] 9917004-21-2025 14:04-0400 Body yhermf672.72 cmBrett Kuns DO Work Phone: 1(523)5-[address] [place], [place] 9917004-21-2025 14:04-0400 Body cfujkobjild18.2 [degF]Griselda Kuns DO Work Phone: 1(722)[address]04-21-2025 14:04-0400 Body .9 kgBrett Kuns DO Work Phone: 1(314)[address]04-05-2025 14:00-0400 Heart rate88 /minBrett Andreas DO Work Phone: [facility]04-05-2025 14:00-0400 Respiratory rate20 /minBrett Andreas DO Work Phone: 1(792)[address] [place], [place] 9917004-05-2025 14:00-0400 SaO2% (BldA) [Mass fraction]93 %Griselda Andreas DO Work Phone: 1(294)6-[address] [place], [place] 9917004-05-2025 13:48-0400 Body lulysipfymv87.4 [degF]Griselda Eckerts DO Work Phone: 1(048)[address] [place], [place] 2438104-05-2025 13:48-0400 Diastolic blood zrqxcsyl87 mm[Hg]Griselda Kuns DO Work Phone: 1(498)[address]04-05-2025 13:48-0400 Systolic blood dkosqqat305 mm[Hg]Griselda Andreas DO Work Phone: 1(148)[address] [place], [place] 2438104-05-2025 10:55-0400 Body tlobkd074.72 cmKatytt Andreas DO Work Phone: 1(495)[address] [place], [place] 2438104-05-2025 10:55-0400 Body wgeaks74.9 kgKatytt Andreas DO Work Phone: 1(791)[address] [place], [place] 2438103-27-2025 10:46-0400 Body mass index (BMI) [Ratio]27.06 kg/x3ClkfzplOziel Cadena MD Work Phone: [facility] SystemVnbvertmgr46-82-2894 10:46-0400Body .74 kgOziel Cadena MD Work Phone: [facility] SystemQnvahkwave72-35-5926 10:46-0400Diastolic blood noyyhgav70 mm[Hg]Oziel Cadena MD Work Phone: [facility] SystemTgkbvclzoq65-07-2413 10:46-0400Heart rate61 /min Oziel Cadena MD Work Phone: [phone]([phone] SystemDsdwldkyfl44-90-4921 10:46-0400Systolic blood xfbwdyok749 mm[Hg]Oziel Cadena MD Work Phone: [facility] SystemWeihhbtlhm18-41-8471 09:22-0400Body hfgyfj205.72 cmBrett Kuns DO Work Phone: 1(218)[address] [place], [place] 2438103-27-2025 09:22-0400 Body mass index (BMI) [Ratio]28.1 kg/t4Xzxbm Kuns DO Work Phone: 1(778)[address]03-27-2025 09:22-0400 Body yzcylhdjmhg63.6 [degF]Griselda Kuns DO Work Phone: 1(433)[address] [place], [place] 2438103-27-2025 09:22-0400 Body jfflgu51 kgBrett Kuns DO Work Phone: 1(059)[address] [place], [place] 2438103-27-2025 09:22-0400 Diastolic blood ylwmayzu92 mm[Hg]Griselda Kuns DO Work Phone: 1(763)[address]03-27-2025 09:22-0400 Heart rate78 /minBrett Kuns DO Work Phone: 1(246)[address]03-27-2025 09:22-0400 Respiratory rate16 /minBrett Kuns DO Work Phone: 1(245)[address] [place], [place] 2438103-27-2025 09:22-0400 SaO2% (BldA) [Mass fraction]98 %Griselda Kuns DO Work Phone: 1(708)[address] [place], [place] 9917003-27-2025 09:22-0400 Systolic blood adccirfa205 mm[Hg]Griselda Kuns DO Work Phone: 1(489)[address]02-13-2025 13:26-0500 Body mass index (BMI) [Ratio]27.37 kg/f4TnnupuzOziel Cadena MD Work Phone: noMober[facility] CenterQakozugqgc80-66-6456 13:26-0500Body undawc89.65 kgOziel Cadena MD Work Phone: [facility] SystemWxbkuizuwt97-63-8022 13:26-0500Diastolic blood bonygxrk79 mm[Hg]Oziel Cadena MD Work Phone: [facility] SystemWxdynbrgjl12-18-0730 13:26-0500Heart rate81 /min Oziel Cadena MD Work Phone: [facility] SystemVzwfnozueq28-52-9765 13:26-0500Systolic blood odmkurzx042 mm[Hg]Oziel Cadena MD Work Phone: [facility] SystemDxegwunyrt31-29-9291 09:54-0500Body .72 cmBrett Kuns DO Work Phone: 1(639)[address]01-16-2025 09:54-0500 Body mass index (BMI) [Ratio]28.4 kg/b0Dzpzd Kuns DO Work Phone: 1(614)[address]01-16-2025 09:54-0500 Body .82 kgBrett Kuns DO Work Phone: 1(058)[address]01-16-2025 09:54-0500 Diastolic blood sguymuvh48 mm[Hg]Griselda Kuns DO Work Phone: 1(145)[address]01-16-2025 09:54-0500 Heart rate81 /minBrett Kuns DO Work Phone: 1(924)[address] [place], [place] 9917001-16-2025 09:54-0500 Respiratory rate18 /minBrett Kuns DO Work Phone: 1(020)3-[address] [place], [place] 9917001-16-2025 09:54-0500 SaO2% (BldA) [Mass fraction]98 %Griselda Kuns DO Work Phone: 1(265)[address]01-16-2025 09:54-0500 Systolic blood qusovsyc377 mm[Hg]Griselda Kuns DO Work Phone: 1(183)[address]01-15-2025 14:18-0500 Body mass index (BMI) [Ratio]28.28 kg/x1FqwmczjOziel Cadena MD Work Phone: 1(540)[address]01-15-2025 14:18-0500Body ucphdy76.37 kgOziel Cadena MD Work Phone: 1(193)[address] [place], [place] 4979601-15-2025 14:18-0500Diastolic blood nflgglyv16 mm[Hg]Oziel Cadena MD Work Phone: 1(246)[address] [place], [place] 4979601-15-2025 14:18-0500Heart rate86 /min Oziel Cadena MD Work Phone: 1(665)[address] [place], [place] 4979601-15-2025 14:18-0500Systolic blood eudjwdye383 mm[Hg]Oziel Cadena MD Work Phone: 1(874)[address] [place], [place] 4979601-13-2025 08:56-0500Body httogq785.7 cmDoretha Harris MD Work Phone: 1(791)[address] [place], [place] 0423601-13-2025 08:56-0500 Body mass index (BMI) [Ratio]27.37 kg/b4ArpbtvlDoretha Harris MD Work Phone: 1(096)[address] [place], [place] 0423601-13-2025 08:56-0500 Body meihzb85.65 kgDoretha Harris MD Work Phone: 1(599)[address] [place], [place] 0423601-13-2025 08:56-0500 Diastolic blood lgxhqapk96 mm[Hg]Doretha Harris MD Work Phone: 1(335)[address] [place], [place] 0423601-13-2025 08:56-0500 Heart rate75 /minDoretha Harris MD Work Phone: 1(386)[address] [place], [place] 0423601-13-2025 08:56-0500 Systolic blood mm[Hg]Doretha Harris MD Work Phone: 1(870)[address] [place], [place] 0423612-04-2024 14:04-0500 Body lzguun101.7 cmOziel Cadena MD Work Phone: 1(745)[address] [place], [place] 4979612-04-2024 14:04-0500Body mass index (BMI) [Ratio]26.46 kg/m3CukhshtOziel Cadena MD Work Phone: [facility] SystemMycfexqact78-79-3511 14:04-0500Body vsifqa73.93 kgOziel Cadena MD Work Phone: [facility] SystemDcnvmhlzvr72-50-9505 14:04-0500Diastolic blood hnkrfhou24 mm[Hg]Oziel Cadena MD Work Phone: [facility] SystemRlkihphaik52-82-6648 14:04-0500Systolic blood mm[Hg]Oziel Cadena MD Work Phone: [facility] SystemDcyanzoxtb33-17-5148 09:48-0500Body kjdrku734.72 cm[facility]11-11-2024 09:48-0500Body mass index (BMI) [Ratio]27 kg/b7LtmofyvcpUniversity [facility]als [facility]11-11-2024 09:48-0500Body weight 80.73 kgUniversity [facility]11-11-2024 09:48-0500Diastolic blood kvxfqytg49 mm[Hg][facility]11-11-2024 09:48-0500Heart rate61 /[facility]11-11-2024 09:48-0500Respiratory rate18 /[facility]11-11-2024 09:48-1288HoV4% (BldA) [Mass fraction]96 %[facility]11-11-2024 09:48-0500 Systolic blood mm[Hg][facility]10-24-2024 12:11-0400Body abzanzkwzro57.1 [degF]Doretha Harris MD Work Phone: [facility]10-24-2024 12:11-0400 Diastolic blood qkodtsvr29 mm[Hg]Doretha Harris MD Work Phone: [facility]10-24-2024 12:11-0400 Heart rate82 /Luanne Harris MD Work Phone: 1(216)[address] [place], [place] 4740510-24-2024 12:11-0400 Respiratory rate17 /minDoretha Harris MD Work Phone: 1(216)[address] [place], [place] 4740510-24-2024 12:11-0400 Systolic blood yontxguv857 mm[Hg]Doretha Harirs MD Work Phone: 1(216)[address] [place], [place] 4740510-24-2024 09:20-0400 SaO2% (BldA) [Mass fraction]93 %Doretha Harris MD Work Phone: 1(216)[address] [place], [place] 4740510-23-2024 15:07-0400 Body mfklyszvetx51Ajdzbwp Zhou MD Work Phone: 1(216)[address] [place], [place] 4740510-23-2024 15:07-0400 SaO2% (BldA) [Mass fraction]100 %Doretha Harris MD Work Phone: 1(216)[address] [place], [place] 4740510-23-2024 14:47-0400 Body vvhsohvqndv39.0 degrees CelsiusThe MetroHealth SystemComment on above:Performed By: #### [id number] #### TITUS Mercado ([id number]) [facility] ([facility]) [address] [place] [address]-23-2024 14:47-4059WfB6% (BldA) [Mass fraction]100 %SHIMON [facility] Medical CenterComment on above:Performed By: #### [id number] #### TITUS Mercado ([id number]) [facility] ([facility]) [address] [place], [place] 5853110-23-2024 12:11-0400Body .7 cmDoretha Harris MD Work Phone: 1(216)[address] [place], [place] 4740510-23-2024 12:11-0400 Body mass index (BMI) [Ratio]27.12 kg/k9ZjhcynhDoretha Harris MD Work Phone: 1(216)[address] [place], [place] 4740510-23-2024 12:11-0400 Body mgktca48.9 kgDoretha Harris MD Work Phone: [facility]10-15-2024 10:47-0400 Body bvloum381.72 cm[facility]10-15-2024 10:47-0400Body mass index (BMI) [Ratio]27.2 kg/q9XvrhajxetUniversity Hospitals Lake [facility] Center10-15-2024 10:47-0400Body xkeebl34.19 kgUniversity [facility]als [facility]10-15-2024 10:47-0400Diastolic blood eavnrrfq25 mm[Hg][facility] 04-01-2024 10:47-0400Heart rate50 /[facility] 04-01-2024 10:47-0400Respiratory rate16 /[facility] 04-01-2024 10:47-6487RvG9% (BldA) [Mass fraction]99 %[facility]10-15-2024 10:47-0400Systolic blood qgwowqfh893 mm[Hg][facility]08-15-2024 10:24-0400Body iydzky872.72 cmUniversity [facility]08-15-2024 10:24-0400Body mass index (BMI) [Ratio]27.3 kg/m2 [facility]08-15-2024 10:24-0400Body itgpxo45.64 kg [facility]08-15-2024 10:24-0400Diastolic blood htafatoz12 mm[Hg][facility]08-15-2024 10:24-0400Heart rate75 /min [facility]08-15-2024 10:24-0400Respiratory rate18 /min [facility]08-15-2024 10:24-5544DeU4% (BldA) [Mass fraction]98 %[facility]08-15-2024 10:24-0400Systolic blood mm[Hg][facility]07-18-2024 13:36-0400 Body fazyut118.7 cmDoretha Harris MD Work Phone: [facility]07-18-2024 13:36-0400 Body mass index (BMI) [Ratio]27.43 kg/d4ZjesauwDoretha Harris MD Work Phone: [phone])665-[address] [place], [place] 3056507-18-2024 13:36-0400 Body .83 kgDoretha Harris MD Work Phone: 1(969)328-[address] [place], [place] [id number] 13:36-0400 Diastolic blood mm[Hg]Doretha Harris MD Work Phone: 1([phone])440-[address] [place], [place] 3056507-18-2024 13:36-0400 Heart rate80 /Luanne Harris MD Work Phone: 1(776)3-[address] [place], [place] [id number] 13:36-0400 Systolic blood mm[Hg]Doretha Harris MD Work Phone: 1(175)860-[address] [place], [place] 3056506-27-2024 10:00-0400 Body mass index (BMI) [Ratio]27.1 kg/z0YjgwwsbHelder Jack MD Work Phone: [phone]-[facility]06-27-2024 10:00-0400 Body umsopiiympc11.5 [degF]Helder Jack MD Work Phone: [phone]-[facility]06-27-2024 10:00-0400 Body tolvqe26.83 Mackenzie Jack MD Work Phone: [facility]06-27-2024 10:00-0400 Diastolic blood ocazyxcp72 mm[Hg]Helder Jack MD Work Phone: [facility]06-27-2024 10:00-0400 Heart rate92 /Rachel Jack MD Work Phone: [facility]06-27-2024 10:00-0400 Respiratory rate17 /Rachel Jack MD Work Phone: [facility]06-27-2024 10:00-0400 SaO2% (BldA) [Mass fraction]96 %Helder Jack MD Work Phone: [facility]06-27-2024 10:00-0400 Systolic blood ewptpjsd184 mm[Hg]Helder Jack MD Work Phone: [facility]06-26-2024 13:08-0400 Body .7 cmRyan Milks PA-C Work Phone: [facility]06-26-2024 13:08-0400 Body mass index (BMI) [Ratio]26.91 kg/m2Ryan Milks PA-C Work Phone: 1(271)[address] [place], [place] 0603906-26-2024 13:08-0400 Body hqujhs48.29 kgRyan Milks PA-C Work Phone: 1(013)[address] [place], [place] 0603906-26-2024 13:08-0400 Diastolic blood iwyamdxx90 mm[Hg]Solomon Milks PA-C Work Phone: 5(629)[facility] [place], [place] 8913106-26-2024 13:08-0400 Heart rate91 /minRyan Milks PA-C Work Phone: 1(188)[facility] [place], [place] 8913106-26-2024 13:08-0400 Systolic blood mm[Hg]Solomon Milks PA-C Work Phone: 1(180)[address] [place], [place] [address]06-17-2024 10:51-0400 Body .72 cmDO Griselda Kuns Work Phone: [facility]06-17-2024 10:51-0400 Body mass index (BMI) [Ratio]26.1 kg/m2DO Griselda Kuns Work Phone: [facility]06-17-2024 10:51-0400 Body .01 kgDO Griselda Kuns Work Phone: [facility]06-17-2024 10:51-0400 Diastolic blood ttyxbkwx76 mm[Hg]DO Griseldaaidan Eckerts Work Phone: [facility]06-17-2024 10:51-0400 Heart rate97 /Gerard Krause Work Phone: [facility]06-17-2024 10:51-0400 Respiratory rate18 /Gerard Krause Work Phone: [facility]06-17-2024 10:51-0400 SaO2% (BldA) [Mass fraction]96 %DO Griselda Krause Work Phone: [facility]06-17-2024 10:51-0400 Systolic blood kasqjibx403 mm[Hg]DO Griselda Krause Work Phone: [facility]05-17-2024 09:49-0400 Body tpzieu232.6 Pushpa Cole MD Work Phone: [facility]05-17-2024 09:49-0400Body mass index (BMI) [Ratio]27.38 kg/s2HqzzaRacquel Cole MD Work Phone: [facility]05-17-2024 09:49-0400Body temperature 97.7 [degF]Racquel Cole MD Work Phone: [facility]05-17-2024 09:49-0400Body dikrtn59.7 kgRacquel Cole MD Work Phone: [facility]05-17-2024 09:49-0400Diastolic blood votzwaif68 mm[Hg]Racquel Cole MD Work Phone: [facility]05-17-2024 09:49-0400Heart rate72 /min Racquel Cole MD Work Phone: [facility]05-17-2024 09:49-0400Respiratory rate 16 /minRacquel Cole MD Work Phone: [facility]05-17-2024 09:49-2649BbD6% (BldA) [Mass fraction]99 %Racquel Cole MD Work Phone: [facility]05-17-2024 09:49-0400Systolic blood mm[Hg]Racquel Cole MD Work Phone: [facility]05-13-2024 10:32-0400Body fqosos249.72 cmDO Griselda Kuns Work Phone: [facility]05-13-2024 10:32-0400 Body mass index (BMI) [Ratio]26.6 kg/m2DO Griselda Kuns Work Phone: [facility]05-13-2024 10:32-0400 Body bcmbyt53.37 kgDO Griselda Kuns Work Phone: [facility] [place] [facility]05-13-2024 10:32-0400 Diastolic blood bduxymxt99 mm[Hg]DO Griselda Kuns Work Phone: [facility]05-13-2024 10:32-0400 Heart rate71 /minDO Griselda Kuns Work Phone: [facility] [place] [facility]05-13-2024 10:32-0400 Respiratory rate16 /minDO Griselad Kuns Work Phone: [facility]05-13-2024 10:32-0400 SaO2% (BldA) [Mass fraction]98 %DO Griselda Kuns Work Phone: [facility]05-13-2024 10:32-0400 Systolic blood xpepemwz515 mm[Hg]DO Griselda Kuns Work Phone: [facility]05-02-2024 09:02-0400 Diastolic blood mm[Hg]DO Griselda Kuns Work Phone: [facility]05-02-2024 09:02-0400 Systolic blood tofvkwxm167 mm[Hg]DO Griselda Kuns Work Phone: [facility]05-02-2024 08:58-0400 Body qrpnpu972.72 cmDO Griselda Krause Work Phone: [facility] [place] [facility]05-02-2024 08:58-0400 Body mass index (BMI) [Ratio]26.6 kg/m2DO Griselda Andreas Work Phone: [facility] [place] [facility]05-02-2024 08:58-0400 Body ugacek34.37 kgDO Griselda Krause Work Phone: [facility] [place] [facility]05-02-2024 08:58-0400 Heart rate57 /minDO Griselda Krause Work Phone: [facility]05-02-2024 08:58-0400 Respiratory rate18 /minDO Griselda Krause Work Phone: [facility]05-02-2024 08:58-0400 SaO2% (BldA) [Mass fraction]98 %DO Griselda Krause Work Phone: [facility]04-19-2024 09:37-0400 Body ppeabt289.2 cmHelder Jack MD Work Phone: [facility]04-19-2024 09:37-0400 Body mass index (BMI) [Ratio]26.25 kg/a0RkegmjcHelder Jack MD Work Phone: [facility]04-19-2024 09:37-0400 Body aeodtdaxsrw99.3 [degF]Helder Jack MD Work Phone: [facility]04-19-2024 09:37-0400 Body klcamd09.84 kgHelder Jack MD Work Phone: [facility]04-19-2024 09:37-0400 Diastolic blood rweqplta76 mm[Hg]Helder Jack MD Work Phone: [facility]04-19-2024 09:37-0400 Heart rate81 /minHelder Jack MD Work Phone: [facility]04-19-2024 09:37-0400 Respiratory rate16 /Rachel Jack MD Work Phone: [facility]04-19-2024 09:37-0400 SaO2% (BldA) [Mass fraction]99 %Helder Jack MD Work Phone: [facility]04-19-2024 09:37-0400 Systolic blood allwthxq297 mm[Hg]Helder Jack MD Work Phone: [facility]03-20-2024 13:44-0400 Diastolic blood wayiubtw92 mm[Hg]DO Griselda Kuns Work Phone: [facility]03-20-2024 13:44-0400 Systolic blood hatzojue471 mm[Hg]DO Griselda Kuns Work Phone: [facility]03-20-2024 13:41-0400 Body bdsuza555.72 cmDO Griselda Kuns Work Phone: [facility]03-20-2024 13:41-0400 Body mass index (BMI) [Ratio]27.8 kg/m2DO Griselda Kuns Work Phone: [facility]03-20-2024 13:41-0400 Body rbgeqf48 kgDO Griselda Kuns Work Phone: [facility]03-20-2024 13:41-0400 Heart rate66 /minDO Griselda Kuns Work Phone: [facility]03-20-2024 13:41-0400 Respiratory rate18 /minDO Griselda Kuns Work Phone: [facility]03-20-2024 13:41-0400 SaO2% (BldA) [Mass fraction]99 %DO Griselda Kuns Work Phone: [facility]03-20-2024 11:58-0400 Body qaotsp553.72 cmDO Griselda Kuns Work Phone: [facility]03-20-2024 11:58-0400 Body mass index (BMI) [Ratio]27.3 kg/m2DO Griselda Kuns Work Phone: [facility]03-20-2024 11:58-0400 Body apvaihfmnty44.8 [degF]DO Griselda Kuns Work Phone: [facility]03-20-2024 11:58-0400 Body bcdqec63.64 kgDO Griselda Kuns Work Phone: [facility]03-20-2024 11:58-0400 Diastolic blood mm[Hg]DO Griselda Kuns Work Phone: [facility]03-20-2024 11:58-0400 Heart rate71 /minDO Griselda Kuns Work Phone: [facility]03-20-2024 11:58-0400 SaO2% (BldA) [Mass fraction]96 %DO Griselda Kuns Work Phone: [facility]03-20-2024 11:58-0400 Systolic blood hligdjqb172 mm[Hg]DO Griselda Kuns Work Phone: [facility]02-28-2024 15:41-0500 Body .72 cmDO Griselda Kuns Work Phone: [facility]02-28-2024 15:41-0500 Body mass index (BMI) [Ratio]28.1 kg/m2DO Griselda Kuns Work Phone: [facility]02-28-2024 15:41-0500 Body brwaoj42.08 kgDO Griselda Kuns Work Phone: [facility]02-28-2024 15:41-0500 Diastolic blood ssfzjgek50 mm[Hg]DO Griselda Kuns Work Phone: [facility]02-28-2024 15:41-0500 Heart rate62 /minDO Griselda Kuns Work Phone: [facility]02-28-2024 15:41-0500 Respiratory rate18 /minDO Griselda Kuns Work Phone: [facility]02-28-2024 15:41-0500 SaO2% (BldA) [Mass fraction]99 %DO Griselda Kuns Work Phone: [facility]02-28-2024 15:41-0500 Systolic blood cqfhuxck839 mm[Hg]DO Griselda Kuns Work Phone: [facility]02-15-2024 13:11-0500 Body ydbypz623.72 cmDO Griselda Kuns Work Phone: [facility]02-15-2024 13:11-0500 Body mass index (BMI) [Ratio]27.9 kg/m2DO Griselda Kuns Work Phone: [facility]02-15-2024 13:11-0500 Body yonzjb71.46 kgDO Griselda Kuns Work Phone: [facility]02-15-2024 13:11-0500 Diastolic blood tpgruhuv94 mm[Hg]DO Griselda Kuns Work Phone: [facility]02-15-2024 13:11-0500 Heart rate68 /minDO Griselda Kuns Work Phone: [facility]02-15-2024 13:11-0500 Respiratory rate16 /minDO Griselda Kuns Work Phone: [facility]02-15-2024 13:11-0500 SaO2% (BldA) [Mass fraction]97 %DO Griselda Kuns Work Phone: [facility]02-15-2024 13:11-0500 Systolic blood mm[Hg]DO Griselda Kuns Work Phone: [facility]01-15-2024 09:30-0500 Body eruujx423.72 cmBrett Andreas Other [facility]01-15-2024 09:30-0500 Body mass index (BMI) [Ratio]28.28 kg/z0Ozjqz Kuns Other [employer] Other 01-15-2024 09:30-0500Body xkbimf51.37 kgBrett Kuns Other [place] [employer] Other 01-15-2024 09:30-0500Body jcihaa61.36 kgDO Griselda Kuns Work Phone: [facility]01-15-2024 09:30-0500 Diastolic blood ghuutisi42 mm[Hg]Griselda Andreas Other [facility]01-15-2024 09:30-0500 Respiratory rate16 /minBrett Andreas Other [facility] [facility] [employer] Other 01-15-2024 09:30-2927VtR9% (BldA) [Mass fraction]97 % Griselda Andreas Other [place] [employer] Other 01-15-2024 09:30-0500Systolic blood ybihqsfo029 mm[Hg] Griselda Andreas Other [facility]12-14-2023 13:45-0500 Body idbydw791.72 cmBrett Andreas Other [facility]12-14-2023 13:45-0500 Body mass index (BMI) [Ratio]27.37 kg/s8Fusmk Kuns Other [facility] [facility] [employer] Other [id number] 13:45-0500Body kpjlmu71.65 kgBreaidan Krause Other [employer] Other [id number] 13:45-0500Body stzmua56.64 kgDO Griselda Krause Work Phone: [facility]12-14-2023 13:45-0500 Diastolic blood mm[Hg]Griseldaaidan Krause Other [facility]12-14-2023 13:45-0500 Respiratory rate18 /minGriselda Krause Other [place] [employer] Other [id number] 13:45-4977ZpD2% (BldA) [Mass fraction]98 % Griselda Krause Other [place] [employer] Other [id number] 13:45-0500Systolic blood xxauiwmv482 mm[Hg] Griselda Krause Other [facility]12-13-2023 11:15-0500 Body jgbxci527.72 cmMamargie Harvey Other [facility]12-13-2023 11:15-0500 Body mass index (BMI) [Ratio]27.52 kg/d0NayenhxRuddy Harvey Other [place] [employer] Other 12-13-2023 11:15-0500Body tobwbfgavju22.8 [degF] Ruddy Harvey Other [place] [employer] Other 12-13-2023 11:15-0500Body xhlzfu73.1 kgMamargie Harvey Other [facility]12-13-2023 11:15-0500 SaO2% (BldA) [Mass fraction]98 %Ruddy Harvey Other [facility] [facility] [employer] Other 11-28-2023 13:20-0500Body cqvjxy082.72 cmLinda Kamla Other [facility]11-28-2023 13:20-0500 Body mass index (BMI) [Ratio]27.52 kg/v7Mkgif Kamla Other [place] [employer] Other 11-28-2023 13:20-0500Body zrkrul63.1 kgLinda Kamla Other [facility]11-28-2023 13:20-0500 Diastolic blood xbyrqrwb37 mm[Hg]Lilliam Kamla Other [facility]11-28-2023 13:20-0500 Respiratory rate18 /minLinda Kamla Other [place] [employer] Other [id number] 13:20-9293OxP9% (BldA) [Mass fraction]98 % Lilliam Kamla Other [place] [employer] Other 11-28-2023 13:20-0500Systolic blood sxsyyqih686 mm[Hg] Lilliam Kamla Other [facility]11-20-2023 13:16-0500 Diastolic blood bwfnyvnr87 mm[Hg]DO Griselda Kuns Work Phone: [facility]11-20-2023 13:16-0500 Heart rate75 /minDO Griselda Kuns Work Phone: [facility]11-20-2023 13:16-0500 Respiratory rate16 /minDO Griselda Kuns Work Phone: [facility]11-20-2023 13:16-0500 SaO2% (BldA) [Mass fraction]96 %DO [employer] Work Phone: [facility]11-20-2023 13:16-0500 Systolic blood sumvauez588 mm[Hg]DO [employer] Work Phone: [facility]11-20-2023 10:30-0500 Inhaled oxygen flow rate3 L/minDO Griselda Spaciety ([employer] Work Phone: [facility]11-20-2023 08:29-0500 Body nmwkih087.72 cmDO [employer] Work Phone: [facility]11-20-2023 08:29-0500 Body owrtiq76.37 kgDO [employer] Work Phone: [facility]11-16-2023 09:15-0500 Body hyiehg523.72 cmRuddy Harvey Other [place] [employer] Other 11-16-2023 09:15-0500Body mass index (BMI) [Ratio] 27.06 kg/c8QvhxnckRuddy Harvey Other [place] [employer] Other 11-16-2023 09:15-0500Body fajoqupedfr28.8 [degF] Ruddy Harvey Other [place] [employer] Other 11-16-2023 09:15-0500Body .74 kgMamargie Harvey Other [facility] Other 11-16-2023 09:15-0500Diastolic blood yxfyfdmm28 mm[Hg] Ruddy [facility] Other 11-16-2023 09:15-3813WhL7% (BldA) [Mass fraction]97 % Ruddy Harvey Other [employer] Other 11-16-2023 09:15-0500Systolic blood brkuccxg075 mm[Hg] Ruddy Langdoris Other [employer] Other 11-14-2023 10:30-0500Body ciyfxm801.72 cmBreaidan Krause Other [employer] Other 11-14-2023 10:30-0500Body mass index (BMI) [Ratio] 27.06 kg/g7Xdmfh Kuns Other [employer] Other 11-14-2023 10:30-0500Body .74 kgBreaidan Krause Other [employer] Other 11-14-2023 10:30-0500Diastolic blood sbgrhekt41 mm[Hg] Griseldaaidan Krause Other [employer] Other 11-14-2023 10:30-0500Respiratory rate18 /minBreaidan Krause Other [employer] Other 11-14-2023 10:30-2262HxX6% (BldA) [Mass fraction]96 % Griseldaaidan Eckerts Other [employer] Other 11-14-2023 10:30-0500Systolic blood vcofzwup328 mm[Hg] Griselda Andreas Other [employer] Other 10-25-2023 10:40-0400Body veusgn115.72 cmLinda Kamla Other [employer] Other 10-25-2023 10:40-0400Body mass index (BMI) [Ratio] 26.67 kg/t2Fehpa Kamla Other [place] [employer] Other 10-25-2023 10:40-0400Body .56 kgLinshanelle Kamla Other [place] [employer] Other 10-25-2023 10:40-0400Diastolic blood mvmxdijz87 mm[Hg] Lilliam Grecooroge Other [place] [employer] Other 10-25-2023 10:40-7885UfC7% (BldA) [Mass fraction]96 % Lilliam Grecooroge Other [place] [employer] Other 10-25-2023 10:40-0400Systolic blood rmdynhay340 mm[Hg] Lilliam Kamla Other [place] [employer] Other 10-04-2023 02:42-0400Diastolic blood rskslpov53 mm[Hg] DO Griselda Bonfyres Work Phone: [facility]10-04-2023 02:42-0400 Heart rate72 /minDO Griselda Kuns Work Phone: [facility]10-04-2023 02:42-0400 Respiratory rate16 /minDO Griselda Kuns Work Phone: [facility]10-04-2023 02:42-0400 SaO2% (BldA) [Mass fraction]97 %DO Griselda Kuns Work Phone: [facility]10-04-2023 02:42-0400 Systolic blood eunmgucq992 mm[Hg]DO Griselda Kuns Work Phone: [facility]10-04-2023 00:12-0400 Body hqcpxe328.72 cmDO Griselda Krause Work Phone: [facility]10-04-2023 00:12-0400 Body ecgcqglmjsk73 [degF]DO Griselda Krause Work Phone: [facility]10-04-2023 00:12-0400 Body .37 kgDO Griselda Krause Work Phone: [facility]09-28-2023 10:30-0400 Body wtpgij388.72 cmBreaidan Krause Other [employer] Other 09-28-2023 10:30-0400Body mass index (BMI) [Ratio] 26.76 kg/r8WelwxGriselda Krause Other [employer] Other 09-28-2023 10:30-0400Body krflpo02.83 kgBreaidan Krause Other [employer] Other 09-28-2023 10:30-0400Diastolic blood iejqrvie13 mm[Hg] Griselda Eckertroge Other [employer] Other 09-28-2023 10:30-0400Respiratory rate16 /minBreaidan Andrearoge Other [employer] Other 09-28-2023 10:30-1834MaK0% (BldA) [Mass fraction]97 % Griseldaaidan Krause Other [employer] Other 09-28-2023 10:30-0400Systolic blood nhwjmkna370 mm[Hg] Griseldaaidan Krause Other [employer] Other 09-21-2023 10:00-0400Body hytjfh231.72 cmBreaidan Eckerts Other [employer] Other 09-21-2023 10:00-0400Body mass index (BMI) [Ratio] 27.18 kg/u3Orchv Kuns Other [place] [employer] Other 09-21-2023 10:00-0400Body nurrri91.1 kgBreaidan Krause Other [place] [employer] Other 09-21-2023 10:00-0400Diastolic blood xripxqfu97 mm[Hg] Griselda Andreas Other [place] [employer] Other 09-21-2023 10:00-0400Respiratory rate16 /minBreaidan Krause Other [place] [employer] Other 09-21-2023 10:00-4019OaJ6% (BldA) [Mass fraction]96 % Griseldaaidan Eckerts Other [place] [employer] Other 09-21-2023 10:00-0400Systolic blood mm[Hg] Griselda Andreas Other [place] [employer] Other 09-11-2023 14:13-0400Body .72 cmDO Griselda Kuns Work Phone: [facility]09-11-2023 14:13-0400 Body fmqaekaghxf46 [degF]DO Griselda Kuns Work Phone: [facility]09-11-2023 14:13-0400 Body fmkinm68.6 kgDO Griselda Kuns Work Phone: [facility]09-11-2023 14:13-0400 Diastolic blood wzpeuehp99 mm[Hg]DO Griselda Bonfyres Work Phone: [facility]09-11-2023 14:13-0400 Heart rate56 /minDO Griselda Eckerts Work Phone: [facility]09-11-2023 14:13-0400 Respiratory rate18 /minDO Griselda Eckerts Work Phone: [facility]09-11-2023 14:13-0400 SaO2% (BldA) [Mass fraction]96 %DO Griselda Bonfyres Work Phone: [facility]09-11-2023 14:13-0400 Systolic blood igzwqoxf294 mm[Hg]DO Griselda Bonfyres Work Phone: [facility]06-20-2023 10:15-0400 Body izianv328.72 cmGriselda Krause Other [employer] Other 06-20-2023 10:15-0400Body mass index (BMI) [Ratio] 25.85 kg/b9YkmzgGriselda Krause Other [employer] Other 06-20-2023 10:15-0400Body ebjrwi54.11 kgGriselda Krause Other [employer] Other 06-20-2023 10:15-0400Diastolic blood jyvjwkes34 mm[Hg] Griselda Spaciety ([employer] Other [employer] Other 06-20-2023 10:15-0400Respiratory rate16 /minGriselda Krause Other [employer] Other 06-20-2023 10:15-6849VdS4% (BldA) [Mass fraction]96 % Griselda Kuns Other [employer] Other 06-20-2023 10:15-0400Systolic blood utwqfavz877 mm[Hg] Griselda Eckertroge Other [employer] Other 03-29-2023 10:57-0400Body lrcaxc113.6 cmSgilsonjenna Billyubek PA-C Work Phone: [facility]03-29-2023 10:57-0400Body temperature 97.39 [degF]Kelly Billyubek PA-C Work Phone: [place] [address]-29-2023 10:57-0400Body oxwqfm31.34 kgSujenna Billyubek PA-C Work Phone: [facility]03-29-2023 10:57-0400Diastolic blood soiffnaq60 mm[Hg]Kelly Billyxuank PA-C Work Phone: [place] [address]-29-2023 10:57-0400Heart rate70 /min Kelly Jakubek PA-C Work Phone: [facility]03-29-2023 10:57-0400Respiratory rate 18 /minSgilsonjenna Jakubek PA-C Work Phone: [facility]03-29-2023 10:57-7058AiM7% (BldA) [Mass fraction]100 %Kelly Billyxuank PA-C Work Phone: [place] [address]-29-2023 10:57-0400Systolic blood gcwmrxgi990 mm[Hg]Kelly Billyxuank PA-C Work Phone: [facility]03-16-2023 11:15-0400Body wnwxxy176.72 cmKatyaidan Eckertroge Other [employer] Other 03-16-2023 11:15-0400Body mass index (BMI) [Ratio] 26.79 kg/b6Cwrne Kuns Other [employer] Other 03-16-2023 11:15-0400Body azzadc49.92 kgBrett Kuns Other [employer] Other 03-16-2023 11:15-0400Diastolic blood rqezpuii81 mm[Hg] Griselda Kuns Other [employer] Other 03-16-2023 11:15-0400Respiratory rate16 /minBrett Andreas Other [employer] Other 03-16-2023 11:15-2882IqV9% (BldA) [Mass fraction]98 % Griselda Andreas Other [employer] Other 03-16-2023 11:15-0400Systolic blood mm[Hg] Griselda Kuns Other [employer] Other 02-14-2023 10:30-0500Body nnidbo122.72 cmBrett Kuns Other [employer] Other 02-14-2023 10:30-0500Body mass index (BMI) [Ratio] 27.27 kg/d8Owkuz Kuns Other [employer] Other 02-14-2023 10:30-0500Body .38 kgBrett Kuns Other [employer] Other 02-14-2023 10:30-0500Diastolic blood itpzayyf05 mm[Hg] Griselda Kuns Other [facility] [employer] Other 02-14-2023 10:30-0500Respiratory rate16 /minBrett Kuns Other [place] [employer] Other 02-14-2023 10:30-3011HzD4% (BldA) [Mass fraction]99 % Griselda Kuns Other [place] [employer] Other 02-14-2023 10:30-0500Systolic blood mm[Hg] Griselda Kuns Other [place] [employer] Other 01-30-2023 09:45-0500Diastolic blood qxqfennl75 mm[Hg] DO Griselda Kuns Work Phone: [facility]01-30-2023 09:45-0500 Heart rate69 /minDO Griselda Kuns Work Phone: [facility]01-30-2023 09:45-0500 Respiratory rate16 /minDO Griselda Kuns Work Phone: [facility]01-30-2023 09:45-0500 SaO2% (BldA) [Mass fraction]99 %DO Griselda Kuns Work Phone: [facility]01-30-2023 09:45-0500 Systolic blood ikvkpbmk339 mm[Hg]DO Griselda Kuns Work Phone: [facility]01-30-2023 07:58-0500 Body mnyxap127.72 cmDO Griselda Kuns Work Phone: [facility]01-30-2023 07:58-0500 Body .37 kgDO Griselda Kuns Work Phone: [facility]01-11-2023 10:20-0500 Body isxvrw690.72 cmDeborah Blades Other [employer] Other 01-11-2023 10:20-0500Body mass index (BMI) [Ratio] 26.67 kg/y4Ftfayne Blades Other [employer] Other 01-11-2023 10:20-0500Body enhevt59.56 kgDeborah Blades Other [employer] Other 01-11-2023 10:20-0500Diastolic blood kbtmeigh88 mm[Hg] Trish Blades Other [employer] Other 01-11-2023 10:20-0500Systolic blood nbbokjic525 mm[Hg] Trsih Blades Other [employer] Other 12-09-2022 13:30-0500Body vhlaic726.72 cmBrett Kuns Other [employer] Other 12-09-2022 13:30-0500Body mass index (BMI) [Ratio]26.7 kg/c3Blufi Kuns Other [employer] Other 12-09-2022 13:30-0500Body .65 kgBrett Kuns Other [employer] Other 12-09-2022 13:30-0500Diastolic blood lfhogqta84 mm[Hg] Griselda Kuns Other [employer] Other 12-09-2022 13:30-0500Respiratory rate18 /minBrett Kuns Other [employer] Other 12-09-2022 13:30-9944HzU7% (BldA) [Mass fraction]98 % [facility]iselda [facility]uns [facility] [facility] [employer] Other 12-09-2022 13:30-0500Systolic blood xbvggfio296 mm[Hg] Griselda Kuns Other [place] [employer] Other [id number] 00:30-0400Diastolic blood qwhkxawb62 mm[Hg] DO Griselda Kuns Work Phone: [facility]10-31-2022 00:30-0400 Heart rate78 /minDO Griselda Kuns Work Phone: [facility]10-31-2022 00:30-0400 Respiratory rate16 /minDO Griselda Kuns Work Phone: [facility]10-31-2022 00:30-0400 SaO2% (BldA) [Mass fraction]97 %DO Griselda Kuns Work Phone: [facility]10-31-2022 00:30-0400 Systolic blood uwzfmjrk273 mm[Hg]DO Griselda Kuns Work Phone: [facility]10-30-2022 19:45-0400 Body nqbgyc019.72 cmDO Griselda Kuns Work Phone: [facility]10-30-2022 19:45-0400 Body vttswubxnpc78.1 [degF]DO Griselda Kuns Work Phone: [facility]10-30-2022 19:45-0400 Body wvpruq81 kgDO Griselda Kuns Work Phone: [facility]10-20-2022 16:31-0400 Body .72 cmDO Griselda Kuns Work Phone: [facility]10-20-2022 16:31-0400 Body yzwpdvvasxh62.1 [degF]DO Griselda Andreas Work Phone: [facility]10-20-2022 16:31-0400 Body ykgplk13.37 kgDO Griselda Kuns Work Phone: [facility]10-20-2022 16:31-0400 Diastolic blood wgelztpc511 mm[Hg]DO Griselda Kuns Work Phone: [facility]10-20-2022 16:31-0400 Heart rate95 /minDO Griselda Andreas Work Phone: [facility]10-20-2022 16:31-0400 Respiratory rate19 /minDO Griselda Kuns Work Phone: [facility]10-20-2022 16:31-0400 SaO2% (BldA) [Mass fraction]97 %DO Griselda Kuns Work Phone: [facility]10-20-2022 16:31-0400 Systolic blood coqxvzvf844 mm[Hg]DO Griselda Andreas Work Phone: [facility]09-29-2022 13:30-0400 Body .72 cmGriselda Krause Other [employer] Other 09-29-2022 13:30-0400Body mass index (BMI) [Ratio] 26.91 kg/x1DdfpwGriselda Eckertroge Other [employer] Other 09-29-2022 13:30-0400Body fswvti36.29 kgBreaidan Darling Other [employer] Other 09-29-2022 13:30-0400Diastolic blood ihejzmsa22 mm[Hg] Griselda Andrearoge Other [facility] [facility] [employer] Other 09-29-2022 13:30-0400Respiratory rate16 /minBrett Kuns Other [employer] Other 09-29-2022 13:30-5852GkL1% (BldA) [Mass fraction]97 % Griselda Andreas Other [employer] Other 09-29-2022 13:30-0400Systolic blood vtqjuyqk736 mm[Hg] Griselda Kuns Other [employer] Other 08-15-2022 12:00-0400Body .72 cmBrett Darling Other [employer] Other 08-15-2022 12:00-0400Body mass index (BMI) [Ratio]26.3 kg/z3Jjuht Andreas Other [employer] Other 08-15-2022 12:00-0400Body bakvtx80.47 kgBrett Andreas Other [employer] Other 08-15-2022 12:00-0400Diastolic blood pztxvjru04 mm[Hg] Griselda Kuns Other [employer] Other 08-15-2022 12:00-0400Respiratory rate16 /minBrett Kuns Other [employer] Other 08-15-2022 12:00-3480OfY8% (BldA) [Mass fraction]99 % Griselda Kuns Other [employer] Other 08-15-2022 12:00-0400Systolic blood kjwqwjsa115 mm[Hg] Griselda Kuns Other [employer] Other 07-11-2022 11:00-0400Body .72 cmBrett Kuns Other [employer] Other 07-11-2022 11:00-0400Body mass index (BMI) [Ratio] 26.61 kg/j1Bbdxo Kuns Other [employer] Other 07-11-2022 11:00-0400Body xvvywc59.38 kgBrett Kuns Other [employer] Other 07-11-2022 11:00-0400Diastolic blood eytmpmnc89 mm[Hg] Griselda Kuns Other [employer] Other 07-11-2022 11:00-0400Respiratory rate16 /minBrett Kuns Other [employer] Other 07-11-2022 11:00-1690FmH7% (BldA) [Mass fraction]96 % Griselda Kuns Other [employer] Other 07-11-2022 11:00-0400Systolic blood ponzsycg325 mm[Hg] Griselda Kuns Other [employer] Other 06-20-2022 10:15-0400Body .72 cmBrett Kuns Other [employer] Other 06-20-2022 10:15-0400Body mass index (BMI) [Ratio] 269.71 kg/v5Delte Kuns Other [employer] Other 06-20-2022 10:15-0400Body qbeuqu722.69 kgBrett Kuns Other [employer] Other 06-20-2022 10:15-0400Diastolic blood jwkublyi87 mm[Hg] Griselda Kuns Other [employer] Other 06-20-2022 10:15-0400Respiratory rate18 /minBrett Kuns Other [employer] Other 06-20-2022 10:15-6833XlP7% (BldA) [Mass fraction]99 % Griselda Kuns Other [employer] Other 06-20-2022 10:15-0400Systolic blood tzwgadzc983 mm[Hg] Griselda Kuns Other [employer] Other 05-24-2022 11:15-0400Body buftzw415.72 cmBrett Andreas Other [employer] Other 05-24-2022 11:15-0400Body mass index (BMI) [Ratio] 27.06 kg/v9Zbxae Andreas Other [employer] Other 05-24-2022 11:15-0400Body hkccoe12.74 kgBrett Kuns Other [employer] Other 05-24-2022 11:15-0400Diastolic blood uvuhhhcz06 mm[Hg] Griselda Kuns Other [employer] Other 05-24-2022 11:15-0400Respiratory rate16 /minGriselda Krause Other [facility] [employer] Other 05-24-2022 11:15-8008PjJ1% (BldA) [Mass fraction]97 % Griselda Krause Other [facility] [employer] Other 05-24-2022 11:15-0400Systolic blood wsxzteya874 mm[Hg] Griselda Krause Other [facility] [employer] Other 05-19-2022 09:38-0400Body spfepo883.51 cmGriselda Driver Darling Work Phone: 1(438) [phone]-NwaswaeAsc[facility] Work Phone: 1(618) 519-384605-19-2022 09:38-0400Body mass index (BMI) [Ratio] 27.05 kg/r6Wrmhq R Darling Work Phone: 1(420) [phone]-EyfckynAsc[facility] Work Phone: [phone] 09:38-0400Body surface area Derived from formula1.91 h1Atrkf Neisha Krause Work Phone: 1(536) [phone]-FxgkpytAscension [facility] Hospital Work Phone: [phone] 09:38-0400Body rwrxjdfbong97.2 [degF]Griselda Krause Work Phone: 1(444) [phone]-BlccqagAscension [facility] Work Phone: [phone] 09:38-0400Body lkqgxe05.65 kgGriselda Driver Darling Work Phone: 1(559) [phone]-MfbcooxAscension [facility] Hospital Work Phone: [phone] 09:38-0400Diastolic blood mm[Hg] Griselda Krause Work Phone: 1(586) [phone]-JvnnubzAscension [facility] Hospital Work Phone: 1(830) 545-124005-19-2022 09:38-0400Heart rate63 /minGriselda R Darling Work Phone: 1(126) [phone]-DpszrcnAscension [facility] Work Phone: 1(069)[phone] 09:38-0400Respiratory rate16 /minBrett R Andreas Work Phone: 1(133) [phone]-KgpfbjwAscension [facility] Hospital Work Phone: 1(665)[phone] 09:38-8010ZuS2% (BldA) [Mass fraction]99 % Griseldaaidan Krause Work Phone: 1(351) [phone]-SnszlzaAscension [facility] Hospital Work Phone: 1(199)[phone] 09:38-0400Systolic blood egmfuvfb022 mm[Hg] Griselda Krause Work Phone: 1(323) [phone]-AvfjmkgAscension [facility] Work Phone: 1(524)[phone] 09:38-58003 1Brett Neisha Krause Work Phone: 1(826) [phone]-RiugeczAscension [facility] Hospital Work Phone: comment on above:ZcuxTstur94-31-1987 13:30-0400Body .72 cmGriselda Krause Other [employer] Other 05-17-2022 13:30-0400Body mass index (BMI) [Ratio] 26.61 kg/x8NvsjuGriselda Krause Other [employer] Other 05-17-2022 13:30-0400Body .38 kgGriselda Krause Other [employer] Other 05-17-2022 13:30-0400Diastolic blood hgcahwoc51 mm[Hg] Griselda Krause Other [employer] Other 05-17-2022 13:30-0400Respiratory rate18 /minBreaidan Krause Other [employer] Other 05-17-2022 13:30-0153TfK9% (BldA) [Mass fraction]99 % Griselda Krause Other [employer] Other 05-17-2022 13:30-0400Systolic blood surslrfo266 mm[Hg] Griselda Krause Other [employer] Other 05-09-2022 09:45-0400Body xfgdke741.72 cmDanisurekha Schneider Other [employer] Other 05-09-2022 09:45-0400Body mass index (BMI) [Ratio] 26.76 kg/k2Rjpzebdionicio Schneider Other [employer] Other 05-09-2022 09:45-0400Body uknrer90.83 kgDadionicio Schneider Other [employer] Other 04-28-2022 09:50-0400Body ibkhlj413 cmVivenori Cole MD Work Phone: [facility]04-28-2022 09:50-0400Body temperature 97.5 [degF]Racquel Cole MD Work Phone: [facility]04-28-2022 09:50-0400Body .28 kgRacquel Cole MD Work Phone: [facility]04-28-2022 09:50-0400Diastolic blood sxjsukwp75 mm[Hg]Racquel Cole MD Work Phone: [facility]04-28-2022 09:50-0400Heart rate70 /min Racquel Cole MD Work Phone: [facility]04-28-2022 09:50-0400Respiratory rate 16 /minRacquel Cole MD Work Phone: [facility]04-28-2022 09:50-9264VoF8% (BldA) [Mass fraction]99 %Racquel Cole MD Work Phone: [facility]04-28-2022 09:50-0400Systolic blood stgezwsi854 mm[Hg]Racquel Cole MD Work Phone: [facility]04-04-2022 10:45-0400Body .72 cmGriselda Krause Other [employer] Other 04-04-2022 10:45-0400Body mass index (BMI) [Ratio] 26.15 kg/k5VopkzGriselda Krause Other [employer] Other 04-04-2022 10:45-0400Body ozcbli43.02 kgGriselda Krause Other [employer] Other 04-04-2022 10:45-0400Diastolic blood luwgotrj13 mm[Hg] Griselda Krause Other [employer] Other 04-04-2022 10:45-0400Respiratory rate18 /minGriselda Krause Other [employer] Other 04-04-2022 10:45-2771HyJ6% (BldA) [Mass fraction]99 % Griselda Krause Other [employer] Other 04-04-2022 10:45-0400Systolic blood mm[Hg] Griselda Krause Other [employer] Other 01-13-2022 13:30-0500Body udllyc967.72 cmBrett Kuns Other [facility] [employer] Other 10-28-2021 08:45-0400Body qqpkby553.72 cmBrett Kuns Other [employer] [facility] [employer] Other 10-28-2021 08:45-0400Body mass index (BMI) [Ratio] 25.85 kg/b5Akxxf Kuns Other [employer] [facility] [employer] Other 10-28-2021 08:45-0400Body noqecf28.11 kgBrett Kuns Other [place] [employer] Other 10-28-2021 08:45-0400Diastolic blood lagnuqke86 mm[Hg] Griselda Kuns [facility] [employer] Other 10-28-2021 08:45-0400Respiratory rate16 /minBrett Kuns Other [employer] [facility] [employer] Other 10-28-2021 08:45-3437IdM8% (BldA) [Mass fraction]99 % Griselda Kuns Other [employer] [facility] [employer] Other 10-28-2021 08:45-0400Systolic blood iqmdpogv857 mm[Hg] Griselda Kuns Other [employer] Other Encounters Encounter DateEncounter TypeCare ProviderFacilityStart: 04-27-2025 End: 93-65-2564ucdtzccwtkJunxq Kuns DO Work Phone: [phone]-[facility] CardiologyStart: 04-27-2025 End: 68-66-9714Tmuosij encounter procedureLilliam Cason MD-[facility] Cardiology Work Phone: Start: 04-07-2025 End: 12-41-2302Oaegvokio Result EncounterOziel Cadena MD Work Phone: noms External Department UnsolicitedStart: 04-07-2025 End: 18-62-2430Xokphukus Result EncounterOziel Cadena MD Work Phone: noms External Department UnsolicitedStart: 04-03-2025 Non-patient / Non-visitGriselda Krause DO-[facility] Work Phone: Start: 04-01-2025 End: 94-64-1689etfzhhlytcIyccr Kuns DO Work Phone: [facility] Work Phone: Start: 04-01-2025 End: 47-14-9449Wizgfdx encounter procedureGriselda Krause DO-[facility] Work Phone: Start: 03-30-2025 End: 82-92-8877klwhnogwpzDnhuyvd Vytautas Giedraitis MDFacility:PM Jack Start: 03-24-2025 End: 04-87-9632qlsckgwyypXJRDJTVU [facility] Hospitaltart: 03-18-2025 End: 51-85-1781Sadyla flowsMarshal Cadena MD Work Phone: noms NEUROLOGYStart: 03-18-2025 End: 87-05-7424Nzxzkz Preet Cadena MD Work Phone: noms BM NEUROLOGYStart: 03-18-2025 End: 28-82-6842jegacywnkeZSSIXGL W BAUERNot AvailableComment on above:Other nerve root and plexus disorders (Primary Dx); Acute pain of left shoulder; Acute pain of right shoulderStart: 02-26-2025 End: 37-73-5580Mnvngwx encounter procedureGriselda Krause DO-[facility] Work Phone: Start: 02-26-2025 End: 90-74-3540ilwdkrpqnmZhmnj Kuns DO Work Phone: [facility] Work Phone: Start: 33-62-4777Ulohbhk encounter procedureGriselda Krause DO Work Phone: [facility] 02-19-2025 End: 96-79-4716kvmeiqlkqxEdgzj Kuns DO Work Phone: [facility] Work Phone: Start: 02-19-2025 End: 51-69-6218Qumbnwt encounter procedureGriselda Krause DO-[facility] [place] Work Phone: Start: 76-43-8225Xud-patient / Non-visitMelissa Juliet Arias DO-[facility] Work Phone: Start: 02-13-2025 End: 22-31-2409fnufuouwolLBVLNXSOBarnesville Hospitaltart: 02-09-2025 End: 32-10-9464slpywdhfqrMlzptjq Vytautas Giedraitis MDFacility:PM Jack Start: 02-04-2025 End: 18-56-7977Cficftue SupportOziel Cadena MD Work Phone: [facility] NeurologyComment on above:Acute pain of right shoulder (Primary Dx); Nerve root and plexus disorder, unspecified; Acute pain of left shoulderStart: 02-04-2025 End: 20-85-6175Gznqpa flowsMarshal Cadena MD Work Phone: noms NEUROLOGYStart: 02-04-2025 End: 70-88-9711Hxyiqp flowsMarshal Cadena MD Work Phone: NOMS BM NEUROLOGYStart: 68-57-9838Lgq-patient / Non-visitAndrius Royx NORRIS-[facility] Work Phone: Start: 01-26-2025 End: 37-07-6231eagjmonipkUpblrwy Erickaytsharla Ramsey MDFacility:PM Jack Start: 01-12-2025 End: 92-33-2020iesxqnnjvaSlkwk Darling DO Work Phone: [facility] Work Phone: Start: 01-12-2025 End: 14-26-5479Ssybkak encounter procedurewen Mullins [facility]Do[facility] Work Phone: Start: 01-08-2025 End: 61-99-6847Rqlczr [facility] Work Phone: noms SWS DERMStart: 01-08-2025 End: 62-22-7008Zhypqk [facility] PA Work Phone: noms SWS DERMStart: 01-08-2025 End: 80-74-6093Yhmcqs outpatient visit 15 [facility] PA Work Phone: noms SWS DERMComment on above:Melanocytic nevus of trunk (Primary Dx); Seborrheic keratosis; Inflamed seborrheic keratosis; Actinic keratosis; Capillary angioma; History of SCC (squamous cell carcinoma) of skinStart: 01-08-2025 End: 97-67-2033zjyakoywpgFTKMU NORTHEIMNot AvailableStart: 12-29-2024 End: 12-59-3479pfzxbdtdouTSMWJMD ZHOUNot AvailableStart: 12-24-2024 End: 91-37-5066Axvjoj Preet Cadena MD Work Phone: noms BM NEUROLOGYStart: 12-24-2024 End: 94-73-7995Liwltb Preet Cadena MD Work Phone: noms BM NEUROLOGYStart: 12-24-2024 End: 63-30-5009Lbylfpcg SupportOziel Cadena MD Work Phone: [facility] NeurologyComment on above:Nerve root and plexus disorder, unspecified (Primary Dx); Acute pain of left shoulderStart: 2024 End: 53-71-7148Rutekvv encounter procedureBrett Kuns DO Work Phone: [facility] CtrStart: 2024 End: 88-35-5065wesgndiikxWenfk Kuns DO Work Phone: [facility] Work Phone: Start: 11-19-2024 End: 40-79-0429mvbcqvunynMarjn Kuns DO Work Phone: [facility] Work Phone: Start: 11-19-2024 End: 30-86-8564Ppilgcc encounter procedureBrett Kuns DO Work Phone: [facility] Work Phone: Start: 11-17-2024 End: 72-07-9719yfeawvfxeqLvqns Kuns DO Work Phone: [facility] Work Phone: Start: 11-17-2024 End: 72-97-7313Eqbjzlx encounter procedureBrett Kuns DO Work Phone: [facility] Work Phone: Start: 11-12-2024 End: 89-80-1912Vrbihl flowsMarshal Cadena MD Work Phone: noms BM NEUROLOGYStart: 11-12-2024 End: 04-89-1936Vqntbn Preet Cadena MD Work Phone: noms NEUROLOGYStart: 11-12-2024 End: 22-30-2446Aydnxvki SupportOziel Cadena MD Work Phone: [facility] SWS NEURComment on above:Nerve root and plexus disorder, unspecified (Primary Dx); Acute pain of left shoulderStart: 11-07-2024 End: 45-28-0925yklaxnapteOCTDT ABHYANKARFacility:[facility] Centertart: 35-43-7414Dtp-patient / Non-visitBrett Kuns DO Work Phone: [facility] Work Phone: Start: 11-05-2024 End: 99-03-2727Xueeimqia to same day surgery centerBreaidna Krause DO Work Phone: [facility]-Digestive Health Work Phone: Start: 11-05-2024 End: 17-54-0288jmjfxqmmjbYdxx AsaadFacility:[facility] Start: 11-03-2024 End: 18-01-5905Eimzmnqij encounterRacquel Cole MD Work Phone: Hematology/OncologyComment on above:OrdersStart: 56-32-9349Qxv-patient / Non-visitBrett Kuns DO Work Phone: [facility] GroupQu[facility] Work Phone: Start: 04-64-0405mbhcyutsnpYMJAI HYFERNIE Facility:[facility]ertart: 11-03-2024 End: 01-96-4544Ejbrokdmsc hospital visit by physicianArrival Time Radiology Work Phone: Radiology Pet CTComment on above: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]Start: 10-27-2024 End: 65-35-0558fettimcgvfIqlpa Kuns DO Work Phone: [facility] Work Phone: Start: 10-27-2024 End: 50-84-9139Bgoitbw encounter procedureBreaidan Krause DO Work Phone: [facility] Work Phone: Start: 10-21-2024 End: 05-32-7163Hqwrdxyinp hospital visit by physicianRad External FilmEF RAD EXTERNAL FILM VIRTUALComment on above:ArrivedStart: 10-21-2024 End: 39-74-5420qtqscursnfMSJOKBYMercy Health St. Rita's Medical Centertart: 10-13-2024 End: 46-46-8179Jgegvd outpatient visit 40 minutesXilara Harris MD Work Phone: [facility] HospitalComment on above:Status post cervical spinal fusion (Primary Dx)Start: 10-13-2024 End: 82-81-8331ltzqsjtljlSOPQCTEThree Rivers Healthcare AmbulatoryStart: 10-10-2024 End: 85-99-2997ugxjojuzlyVbqno Kuns DO Work Phone: [facility] Work Phone: Start: 10-10-2024 End: 97-34-4949Ipoxynx encounter procedureBreaidan Eckerts DO Work Phone: [facility] Physician [facility] Work Phone: Start: 10-10-2024 End: 64-29-8587Aotgfgg encounter procedureBreaidan Eckerts DO Work Phone: [facility] Work Phone: Start: 10-10-2024 End: 19-72-5833fsxwjtxkhqTjiji Kuns DO Work Phone: [facility] Work Phone: Start: 10-07-2024 End: 98-74-9985Ouesllt encounter procedureBrett Kuns DO Work Phone: [facility] Work Phone: Start: 10-07-2024 End: 93-87-5317qeskngxnbcLrzgm Kuns DO Work Phone: [facility] Work Phone: Start: 10-06-2024 End: 92-22-3146Qcdjfxsgf department patient visitGriselda Krause DO Work Phone: [facility]-Emergency Room Work Phone: Start: 09-22-2024 End: 95-28-1729pjruclmpazNxdquoz Vytautas Giedraitis MDFacility:[facility] [place] Start: 09-20-2024 End: 09-13-3082Kcgixsajs department patient visitGriselda Krause DO Work Phone: [facility]-Emergency Room Work Phone: Start: 09-15-2024 End: 38-89-2528hmccxkkkhiVzlxhkg Vytautas Giedraitis MDFacility:PM Jack Start: 09-11-2024 End: 82-68-5257Fmokhd flowsMarshal Cadena MD Work Phone: noms NEUROLOGYStart: 09-11-2024 End: 83-40-4894Kzjseu flowsMarshal Cadena MD Work Phone: noms NEUROLOGYStart: 09-11-2024 End: 76-47-0580Vpmqsvzr SupportBremadisyn Cadena MD Work Phone: noms SWS NEURComment on above:Nerve root and plexus disorder, unspecified (Primary Dx)Start: 09-11-2024 End: 05-40-5671Curtzyr encounter procedureBreaidan Krause DO Work Phone: [facility]As[facility] Work Phone: Start: 09-11-2024 End: 95-52-7179dqwnfixtbjKnkrj Kuns DO Work Phone: [facility] Work Phone: Start: 07-31-2024 End: 91-68-8987Wafwah Preet Cadena MD Work Phone: noms BM NEUROLOGYStart: 07-31-2024 End: 12-35-7372Fovcjp Preet Cadena MD Work Phone: noms BM NEUROLOGYStart: 07-31-2024 End: 29-74-7008Hrladxbw SupportOziel Cadena MD Work Phone: noms SWS NEURComment on above:Nerve root and plexus disorder, unspecified (Primary Dx)Start: 07-28-2024 End: 23-48-0176euddynwhmsJsiwbgo Vytautas Giedraitis MDFacility:PM [facility] Start: 07-07-2024 End: 26-56-3288lphkiattywImijxcg Vytautas Giedraitis MDFacility:[facility] [place] Start: 07-03-2024 End: 24-21-7034oryketyziyAehvw Andreas DO Work Phone: [facility] Work Phone: Start: 07-03-2024 End: 03-22-9861Jaerkbt encounter procedureBrett Kuns DO Work Phone: [facility] GroupSt[facility] Work Phone: Start: 07-02-2024 End: 11-75-0924Lowncemagdalena Cadena MD Work Phone: noms NEUROLOGYStart: 07-02-2024 End: 38-52-7049Qpoltw Preet Cadena MD Work Phone: noms BM NEUROLOGYStart: 07-02-2024 End: 67-56-0890Mtxwmxmx SupportOziel Cadena MD Work Phone: noms SWS NEURComment on above:Nerve root and plexus disorder, unspecified (Primary Dx)Start: 06-30-2024 End: 36-74-5892Softoo follow up visit related to original pxXiaodale Harris MD Work Phone: [facility] HospitalComment on above:Status post cervical spinal fusion (Primary Dx)Start: 06-30-2024 End: 48-46-0216lgggvltbtiRZUGYDANortheast Baptist Hospital AmbulatoryStart: 06-24-2024 End: 72-63-1610Urkmzqa encounter procedureBreaidan Eckertroge DO Work Phone: [facility]Ray [facility] Work Phone: Start: 06-24-2024 End: 08-38-3209uwbsfftpgtPhwae Kuns DO Work Phone: [facility] Work Phone: Start: 05-21-2024 End: 97-44-7863Rlrkny flowsMarshal Cadena MD Work Phone: noms NEUROLOGYStart: 05-21-2024 End: 00-26-9447Weanff flowsMarshal Cadena MD Work Phone: noms NEUROLOGYStart: 05-21-2024 End: 71-31-6704Luyrhvnp SupportBremadisyn Cadena MD Work Phone: noms [facility] NEURComment on above:Other nerve root and plexus disorders (Primary Dx); Cervical paraspinal muscle spasm; Cervical stenosis of spinal canalStart: 04-30-2024 End: 52-07-5306Hljrfx follow up visit related to original Kd Narayanan PA-C Work Phone: [facility] HospitalComment on above:Cervical radiculopathy (Primary Dx); Status post cervical spinal fusion; Acute postoperative pain; Muscle spasms of neckStart: 04-30-2024 End: 21-23-3986pwagsaleerYFQX [facility] AmbulatoryStart: 04-28-2024 End: 66-64-7809twzbndicclStbbewefzTrinity Health System [facility] Work Phone: Start: 04-28-2024 End: 45-80-0104Fvjljol encounter procedureRegino Physician Group-[facility] Work Phone: Start: 04-09-2024 End: 01-12-8225gjzikhgaamTZDPUHO [facility] Centertart: 04-09-2024 End: 87-60-6958Xckuvlqfpu and management of inpatientDoretha Harris MD Work Phone: [facility] 4Comment on above:Cervical radiculopathy (Primary Dx); Senile osteoporosisStart: 04-01-2024 End: 83-96-1515vkfwmemiegCfeqluxdbBlanchard [facility] Work Phone: Start: 04-01-2024 End: 66-87-4217Wlwcbba encounter procedureRegino Physician Group-[facility] [place] Work Phone: Start: 03-31-2024 End: 26-00-3679Nxlbwrtbrn hospital visit by physicianRad External FilmEF RAD EXTERNAL FILM VIRTUALComment on above:ArrivedStart: 03-31-2024 End: 53-62-8882dwfttveqrpGMVVIVD [facility] Centertart: 03-26-2024 End: 38-33-6405rwjbapqvurAFNEVCIMercy Health St. Rita's Medical Centertart: 03-19-2024 End: 45-78-2956jiilbukydcGMXPC R KUNSumma Healthtart: 02-13-2024 End: 88-34-1238Wfuocsnfvm hospital visit by physicianEly X-Ray [address] [place], [place] [address]Comment on above:Cervical radiculopathyStart: 02-13-2024 End: 31-02-4724xnmukfrggtRRHJOKL [facility] Start: 02-13-2024 End: 92-03-9709jyonklbgliWWUTINZKettering Health [facility] Start: 02-11-2024 End: 46-73-9154xsqjvwpfdqOIZEWKBMercy Health St. Rita's Medical Centertart: 02-11-2024 End: 35-07-4125kvoayihxhpEZDWAZJ ZHOUUniversity Hospitals Lake West Medical Centertart: 02-11-2024 End: 46-96-9034Xiqrbkbvly hospital visit by physicianO[facility] [place] Tuy3662 Cr Nonv1 Holter/Ecg ResourceMatheny Medical and Educational Center MatherComment on above:Cervical radiculopathy; Senile osteoporosisStart: 02-04-2024 End: 11-46-4301vndyobbfmnOVSAL R KUNSUniProMedica Bay Park Hospitaltart: 01-31-2024 End: 95-31-8430ccdjiafwzxDehsjitdxBlanchard [facility] Work Phone: Start: 01-31-2024 End: 04-18-1125Knrkihd encounter procedureE[facility] [place] Work Phone: Start: 01-03-2024 End: 90-46-3117Eeclgy outpatient new 60 minutesDoretha Harris MD Work Phone: [facility] HospitalComment on above:Cervical radiculopathy (Primary Dx); Senile osteoporosisStart: 12-13-2023 End: 19-00-9107Ciogmg outpatient visit 40 minutesHelder Jack MD Work Phone: [facility] CenterComment on above:Pontine glioma (Multi)Start: 12-13-2023 End: 37-34-8437gdnjlkvpmaRSNCUEM B NEWTONUniversity Hospitals Lake West Medical Centertart: 12-13-2023 End: 54-27-0071Anwnyimetl hospital visit by physicianOu [facility] [place] Mri [address] [place], [place] [address]Comment on above:Pontine glioma (Multi)Start: 12-13-2023 End: 27-42-6050wxoeevfhflSVQOY K SOTAKUniversity Hospitals Lake West Medical Centertart: 12-12-2023 End: 47-32-8688Aktwli outpatient new 45 minutesSolomon Narayanan PA-C Work Phone: [facility] HospitalComment on above:Cervical radiculopathy (Primary Dx); Occipital neuralgia of left side; Balance problemStart: 12-03-2023 End: 74-17-9891cbbyxhccjtSW Griselda Krause Work Phone: [facility] Work Phone: Start: 12-03-2023 End: 18-85-1631Zsnhaib encounter procedureDO Griselda Krause Work Phone: [facility] Work Phone: Start: 11-02-2023 End: 15-76-2026Tpwxir outpatient visit 25 minutesRacquel Cole MD Work Phone: Hematology/OncologyComment on above: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)Start: 10-29-2023 End: 27-93-6788bbdxmbiyruUX Griselda Darling Work Phone: [facility] Work Phone: Start: 10-29-2023 End: 68-09-7347Zdkcfpb encounter procedureDO Griselda Darling Work Phone: [facility] Work Phone: Start: 33-93-5491Ods-patient / Non-visitDO Griselda Eckertroge Work Phone: [facility] Work Phone: Start: 10-26-2023 End: 35-13-2867Jhvbbxuolv hospital visit by physicianArrival Time Radiology Work Phone: Radiology Pet CTComment on above: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]Start: 10-18-2023 End: 49-85-5249Pedcqfi encounter procedureDO Griselda Krause Work Phone: [facility] Cardiology Work Phone: Start: 10-09-2023 End: 57-20-5004vqbmebfhljZW Griselda Kuns Work Phone: [facility] Work Phone: Start: 10-09-2023 End: 17-30-5910Nysjvez encounter procedureDO Griselda Krause Work Phone: [facility]-XRay [facility] Work Phone: Start: 10-05-2023 End: 63-62-5216Yctqmw outpatient new 60 minutesHelder Jack MD Work Phone: [facility] Medical CenterComment on above:Brainstem lesion (Primary Dx); Pontine glioma (Multi)Start: 09-19-2023 End: 21-63-8486Pzccztbbqw hospital visit by physicianRad External FilmEF RAD EXTERNAL FILM VIRTUALComment on above:ArrivedStart: 09-05-2023 End: 96-86-6999rzlvpkpwnxOB Griselda Krause Work Phone: [facility] Work Phone: Start: 09-05-2023 End: 46-27-1442Dmqhhuf encounter procedureDO Griselda Krause Work Phone: [facility] Work Phone: Start: 09-05-2023 End: 67-88-3159nkbvgtunehSZ Griselda Krause Work Phone: [facility] Work Phone: Start: 09-05-2023 End: 77-97-7946Uzcxtcd encounter procedureDO Griselda Kuns Work Phone: [facility] Work Phone: Start: 08-15-2023 End: 62-17-2057Bckwsfp encounter procedureDO Griseldaaidan Krause Work Phone: [facility] [place] Work Phone: Start: 08-02-2023 End: 44-46-4830eusfnsoikjCW Griselda Kuns Work Phone: [facility] Work Phone: Start: 08-02-2023 End: 70-76-5743Wshybzj encounter procedureDO Griselda Kuns Work Phone: [facility] Family [facility] Work Phone: Start: 51-85-8447Vbevp abstractingNikole Mota ADULT LITERACY TEACHER Work Phone: [facility]oms [facility] NEURO 210Start: 20-47-7981Apoffx flowsheet Nikole Mota ADULT LITERACY TEACHER Work Phone: noms BM NEUROLOGYStart: 03-92-2512Qfzywt flowsheet Nikole Mota ADULT LITERACY TEACHER Work Phone: noms NEUROLOGYStart: 07-18-2023 End: 66-47-9002qtrzfxznzdQSYGFPAdventHealth Zephyrhillstart: 07-02-2023 End: 12-57-2960sfbgmyzjlwItoqk Kuns Other [employer] Other Start: 21-33-6798Spjzsl outpatient visit 25 minutes Griselda Lemus [facility] [place]Start: 07-02-2023 End: 57-69-2821Tsmseea encounter procedureDO Griseldaaidan Eckerts Work Phone: [facility] Work Phone: Start: 05-31-2023 End: 97-14-9712orqphhilbpRpghg Kuns Other [employer] Other Start: 18-93-8302Mxgiwl outpatient visit 25 minutes Griselda Lemus [facility] Cast[place]Start: 48-02-7037Qxtpid outpatient visit 15 minutesNoétthaylie Kruse Vascular SurgeryStart: 05-30-2023 End: 71-35-6220mquhxuxdybUQ Griselda Kuns Work Phone: [facility] [employer] Other Start: 05-30-2023 End: 73-75-3093Rndklki encounter procedureDO Griselda Eckerts Work Phone: [facility]-Ultrasound [facility] VascularStart: 05-30-2023 End: 91-14-6834Nxcbadp encounter procedureDO Griselda Kuns Work Phone: [facility] Work Phone: Start: 05-15-2023 End: 06-89-9898oomeudctxeBqrfv Kamla Other [facility] [employer] Other Start: 00-94-3365Qiahfe outpatient visit 25 minutes Lilliamnae MakigeFPG CardiologyStart: 39-16-0333Jplwqoudk encounterLinda CiaraG Referral CoordinatorStart: 05-15-2023 End: 56-29-1881Zpywbwz encounter procedureDO Griselda Krause Work Phone: [facility] Work Phone: Start: 05-07-2023 End: 68-73-8213Mzuhftder to same day surgery centerDO Griselda Krause Work Phone: [facility]-Interventional Radiology Work Phone: Start: 05-07-2023 End: 20-65-2261cytapdfpflJM Griselda Kuns Work Phone: [facility] Work Phone: Start: 05-04-2023 End: 37-98-2634rsuslgpybxCX Griselda Kuns Work Phone: [facility] Work Phone: Start: 05-04-2023 End: 25-22-5103Ictszof encounter procedureDO Griselda Kuns Work Phone: [facility]-CT Scan [facility] Work Phone: Start: 05-03-2023 End: 91-85-6870rxalafcpbaVivndzz Langenberg Other [employer] Systemssaint [facility] [employer] Other Start: 18-72-2530Xhttmo outpatient new 45 minutes Ruddy Pollard Vascular SurgeryStart: 39-78-3672Sattitcvr encounter Ruddy Pollard Referral CoordinatorStart: 05-01-2023 End: 58-13-6244jbtlkrenbnMzweu Kuns Other [place] [employer] Other Start: 48-88-6518Qmqipn outpatient visit 25 minutes Griselda Lemus [facility] [place]Start: 04-25-2023 End: 35-86-0109zdwcsiyrbuAT Griselda Krause Work Phone: [facility] Work Phone: Start: 04-25-2023 End: 44-89-3574Kmijxns encounter procedureDO Griselda Krause Work Phone: [facility]-Ultrasound [facility] Work Phone: Start: 04-12-2023 End: 59-84-7282ppxbfuanwdDycem Kamla Other [employer] [facility]ss[facility] [employer] Other Start: 19-44-2043Clkcnzkbk encounterLinda AngusorogeFPG CardiologyStart: 04-11-2023 End: 60-17-8192kjenmrjziwUocad Kamla Other [employer] Other Start: 71-47-5061Qejkjk outpatient new 45 minutesLinda AngusorogeFPG CardiologyStart: 04-10-2023 End: 75-85-9671kkkfehmbrsRqjos Kuns Other [employer] Other Start: 83-65-2336Onsqazqze encounterBreaidan KrauseSAM Family Medicine [place]Start: 03-30-2023 End: 02-16-7554aobedjufmfVG Griselda Krause Work Phone: [facility] Work Phone: Start: 03-30-2023 End: 58-09-5258Ixdssqy encounter procedureDO Griselda Krause Work Phone: [facility]-Lab [facility] Work Phone: Start: 03-21-2023 End: 29-93-5292Crffjycxc department patient visitDO Griselda Krause Work Phone: [facility]-Emergency Room Work Phone: Start: 03-15-2023 End: 32-94-4947ktxaxhblndGfbyz Darling Other [place] [employer] Other Start: 60-07-4902Cfwfzn outpatient visit 25 minutes Griseldaaidan EckertrogeSAM Family Medicine [place]Start: 03-08-2023 End: 47-31-9656wurkubjvdiYvxpo Darling Other [place] [employer] Other Start: 70-86-7195Qvtcpe outpatient visit 25 minutes Griseldaaidan EckertrogeSAM Family Medicine [place]Start: 02-26-2023 End: 49-68-0420Buzjjuboy department patient visitDO Griselda Krause Work Phone: [facility]-Emergency Room Work Phone: Start: 94-48-8142gcadzfgdeoQd. ADAM J HEDAYA Facility:UNKNOWNStart: 12-05-2022 End: 96-61-2870xexvoaofcqFzmzs Kuns Other [employer] Other Start: 46-03-1375Nnasab outpatient visit 25 minutes Griselda AndrearogeSAM Family Medicine [place]Start: 11-15-2022 End: 34-52-2013lilidqsaubGO Griselda Krause Work Phone: [facility] Work Phone: Start: 11-15-2022 End: 99-69-6864Isllsqz encounter procedureDO Griselda Krause Work Phone: [facility]-MRI [address] Work Phone: Start: 10-27-2022 End: 65-20-2426Dkqxffbyms hospital visit by physicianArrival Time Radiology Work Phone: Radiology Pet CTComment on above:Malignant neoplasm of head, 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]Start: 10-24-2022 End: 37-86-1804dhfzhlrjuePL Griselda Krause Work Phone: [facility] Work Phone: Start: 10-24-2022 End: 99-12-8371Lzlsdfd encounter procedureDO Griselda Krause Work Phone: [facility]-Lab [place] Work Phone: Start: 09-28-2022 End: 31-81-2519kknuyyoyjiIQDW R SULLINGERFacility:[facility] HospitalStart: 09-22-2022 End: 34-60-2679Bznsjvbpyb hospital visit by Beth Hernandez (I-Stat/3t) Work Phone: RadiologyComment on above: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]Start: 08-85-4499Ixsfskqzn encounterScandie ePrez PA-C Work Phone: [facility] CenterComment on above:Patient QuestionStart: 09-13-2022 End: 21-01-5244Nptjnej encounter procedureScandie Perez PA-C Work Phone: [facility] Brain Tumor CenterComment on above:NPH (normal pressure hydrocephalus) (HCC) (Primary Dx)Start: 08-31-2022 End: 97-88-0349jexyrjndzpAtapg Kuns Other [employer] [facility]ss[facility] [employer] Other Start: 57-09-2527Btzboq outpatient visit 25 minutes Griselda Lemus [facility] Medicine [place]Start: 08-01-2022 End: 15-04-1108ntjcanngruFfiyu Kuns Other [employer] [facility] [employer] Other Start: 59-15-4178Lxwcjh outpatient visit 25 minutes Griselda Lemus [facility] [place]Start: 07-17-2022 End: 73-68-5623ijekgiwngeGF Griselda Kuns Work Phone: [facility] Work Phone: Start: 07-17-2022 End: 04-41-8719Ocibfdl encounter procedureDO Griselda Kuns Work Phone: [facility]-XRay [facility] Work Phone: Start: 07-14-2022 End: 69-74-7357Vzvampo encounter procedureDO Griselda Kuns Work Phone: [facility]-CT Scan [facility] Work Phone: Start: 06-28-2022 End: 63-75-3597ewiscedhocNpszrjz Blades Other noCopyright Agent [employer] Other start: 71-48-5025Wqobkn outpatient new 45 minutes Trish Aleman [facility] NeurosurgeryStart: 05-26-2022 End: 04-60-6316qzmbuoaysnYvcmi Kuns Other [employer] Other Start: 85-20-5347Knpztt outpatient visit 25 minutes Griselda Lemus [facility] [place]Start: 05-17-2022 End: 32-85-0491fiytbexbgxBP Griselda Krause Work Phone: [facility] Work Phone: Start: 05-17-2022 End: 68-84-2482Qbhtqhrdnn RecurringDO Griselda Krause Work Phone: [facility]-Physical Therapy [address] RdStart: 11-91-7473Dqfblkgnmh RecurringDO Griselda Krause Work Phone: [facility]-Physical Therapy [place] RdStart: 04-16-2022 End: 08-86-7006Mzaehguoj department patient visitDO Griselda Krause Work Phone: [facility]-Emergency RoomStart: 04-10-2022 End: 08-38-3831jseujfzqxgRaadj Kuns Other [employer] Other Start: 92-21-5659Hquyovtlr encounterBreaidan Lemus [facility] [place]Start: 04-06-2022 End: 47-82-9782Sblfqzsri department patient visitDO Griselda Krause Work Phone: [facility]-Emergency RoomStart: 50-10-2323Fchirdkrx encounterJelisa Reynolds RNHematology/OncologyComment on above:AppointmentStart: 03-22-2022 End: 09-34-6059ogxlrfonvfEitjm Kuns Other [employer] Other Start: 14-25-3732Axfhbiuuk encounterGriselda Lemus [facility] [place]Start: 03-16-2022 End: 60-97-5207chzwdsalbqAputz Kuns Other [employer] Other Start: 09-25-3767Dsohjc outpatient visit 25 minutes Griselda Lemus [facility] [place]Start: 93-30-2924Fhegoqcoe encounterSelf [facility] Brain Tumor CenterComment on above:Triage (Internal Referral--old) Start: 03-09-2022 End: 86-68-7600yutjfncwcjOjutt Kuns Other [employer] Other Start: 31-55-0731Lxqlcxehn encounterBrett Allan [facility] [place]Start: 03-07-2022 End: 66-13-6689qtxexzfakxShysh Kuns Other [employer] Other Start: 51-93-1720Kflboicnq encounterBreaidan Lemus [facility] [place]Start: 59-60-1989Rotlpsuvq encounterBreaidan Lemus [facility] [place]Start: 03-03-2022 End: 48-73-1985ehfvmjhiogGU Griselda Krause Work Phone: [employer] [facility] [employer] Other Start: 03-03-2022 End: 76-39-6442Nzoqpfywkj RecurringDO Griselda Eckerts Work Phone: [facility]-Physical Therapy [place] RdStart: 07-89-0004Qbnpqiviuj RecurringDO Griselda Kuns Work Phone: [facility]-Physical Therapy [place] RdStart: 02-07-2022 End: 59-89-7573uqkqmjolnsVdjek Kuns Other [employer] [facility]ss[facility] [employer] Other Start: 12-06-3130Tpzxhnxgg encounterBreaidan Lemus [facility] [place]Start: 01-30-2022 End: 81-40-8828okgnksxhjaOxxjz Kuns Other noCopyright Agent [employer] Other Start: 72-13-2783Boqfhn outpatient visit 25 minutes Griselda Lemus [facility] [place]Start: 01-12-2022 End: 40-15-7028npxcabmfdvSqitv Kuns Other [facility] [employer] Other Start: 13-64-4489Ramhqmqhr encounterBrett AndreasFPG Family Medicine [place]Start: 12-26-2021 End: 88-53-7292bfibhidursJmser Kuns Other [facility] [employer] Other Start: 00-96-3464Jceswg outpatient visit 25 minutes Griselda AndreasFPG Family Medicine [place]Start: 12-23-2021 End: 15-57-8520egzbdjcalzUmpdq Kuns Other [facility] [employer] Other Start: 94-72-2522Fqungjbnb encounterBrett AndreasFPG Family Medicine [place]Start: 12-05-2021 End: 26-92-6268sjdkeykaeyNdfom Kuns Other [facility] [employer] Other Start: 28-58-2570Vdxuwv outpatient visit 25 minutes Griselda AndreasFPG Family Medicine [place]Start: 45-63-7989Nuaurkjwn encounterBrett AndreasFPG Family Medicine [place]Start: 11-22-2021 End: 59-85-0797btsijtccglTwwom Kuns Other [place] [employer] Other Start: 88-93-5787Svjjgaitg encounterBrett AndreasFPG Family Medicine [place]Start: 18-25-9606Smidvi outpatient visit 15 minutesGriselda Krause Work Phone: [phone]-Aubhysygwrug-Lynn Work Phone: Start: 11-09-2021 End: 34-73-8257ssiakujbofClmgu Kuns Other [facility] [employer] Other Start: 12-84-4346Ndygwmtki encounterGriselda Lemus [facility] [place]Start: 11-08-2021 End: 46-87-1847pjhyvegyehGhdzg Kuns Other [facility] [employer] Other Start: 32-43-0045Ikmvws outpatient visit 25 minutes Griselda KrauseAleta [facility] [place]Start: 26-26-5153Vmqitn consultation new/estab patient 60 minGriselda Krause Work Phone: [phone]-HegvligAscension Providence Hospital Work Phone: start: 11-01-2021 End: 42-42-8751jzmirgpcdqSynno Kuns Other [facility] [employer] Other Start: 00-45-5690Ewcdhq outpatient visit 25 minutes Griselda KrauseJosiah B. 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); Lung nodules; Malignant neoplasm of head, face and neck (HCC)Start: 10-27-2021 End: 09-21-2902Infkckpfzgcu consultation with Radha Cole MD Work Phone: SANDUSKYStart: 10-24-2021 End: 45-80-4071lplkwhwcwrBxiajs [place] Other [employer] Other start: 49-12-7312Xwbusl outpatient new 30 minutes Sheng SchneiderSaint [facility] NeurosurgeryStart: 31-29-1984Petrrvmqk encounter Racquel Cole MD Work Phone: Cancer Appts MCComment on above:Referral Information (Neurosurgery)Start: 10-13-2021 End: 01-03-6616ahbtlqnnatHvlyd Abhyankar MD Work Phone: Hematology/OncologyComment on above:Glioma of brain (HCC) (Primary Dx); Lung nodules; Primary squamous cell carcinoma of head and neck (HCC)Start: 10-13-2021 End: 58-17-8793Momotcb encounter Bernard Cole MD Work Phone: SANDUSKYStart: 10-06-2021 End: 47-43-5507nukhvqsaznUhxlw Kuns Other [employer] Other Start: 18-61-6496Wtxpdieoo encounterAsya Kumar RN Hematology/OncologyComment on above:ResultsStart: 10-06-2021 End: 54-19-3941Jvwfnohsmp hospital visit by physicianArrival Time Radiology Work Phone: Radiology Pet CTComment on above:Malignant neoplasm of head, 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]Start: 09-29-2021 End: 75-88-8662knhomkyfxjIxxhg Kuns Other [employer] Other Start: 91-06-9258Zrcxrndfd encounterBrett BrooklynnAleta Chavez Primary CareStart: 09-27-2021 End: 60-93-3624mrspjxeeqbQfihh Kuns Other [employer] Other Start: 16-09-7328Gvpvlgmwl encounterBrett BrooklynnAleta Chavez Primary CareStart: 09-19-2021 End: 38-90-3570bxpxrjyvpwAvlop Kuns Other [employer] Other Start: 18-69-6086Vhedfs outpatient visit 25 minutes Griseldaaidan OvertonG Family Medicine [place]Start: 09-12-2021 End: 17-12-9725flutjkssndUajab Kuns Other [facility] [employer] Other Start: 71-91-8450Tdogkzfsh encounterBrett BrooklynnG Family Medicine [place]Start: 09-08-2021 End: 09-79-5327stslxwafibZgydj Kuns Other [facility] [employer] Other Start: 07-94-4490Rlluykffj encounterBrett BrooklynnG Family Medicine [place]Start: 06-30-2021 End: 18-79-9198uccxezhfajQqpmo Kuns Other [facility] [employer] Other Start: 43-96-9445Yajijc outpatient visit 15 minutes Griseldaaidan OvertonG Family Medicine [place]Start: 57-38-0815Lmphehaoh encounterBrett BrooklynnG Family Medicine [place]Start: 06-29-2021 End: 11-01-9707ivhizatrzkLgnfr Kuns Other [facility] [employer] Other Start: 33-78-8141Ayoxuzr evaluation of patient and reportBreaidan OvertonG Family Medicine [place]Start: 04-19-2021 End: 17-02-8655kahnxbifmdSppah Kuns Other [facility] [employer] Other Start: 44-14-3352Aafjdxy evaluation of patient and reportBreaidan KrauseFPG Family Medicine [place]Start: 17-78-3547Jazjlpjbv encounter Griselda BrooklynnG Family Medicine [place]Start: 82-39-7095Hmmpdq outpatient visit 15 minutesBrett BrooklynnG Family Medicine [place]Start: 10-01-2020 End: 75-59-1307Fzdsyuz encounter procedureBrett Andreas Work Phone: [phone]-UoxjcuxdgjsvqrjoqaPwtmy: 09-20-2020 End: 45-77-6780Bhydsmt encounter procedureBreaidan Krause-[facility]Start: 09-13-2020 End: 37-42-3718Oifjewk encounter procedureGriselda Krause-XRay [facility] Procedures DateProcedureProcedure DetailPerforming ClinicianStart: 40-98-9211AYR HEAD/BRAIN WO/W Irene Cadena MD Work Phone: Start: 09-61-2462Ncfxk brachial pressure indexBreaidan Krause DO Work Phone: Start: 01-08-2025 End: 68-13-8249IVPSHCGLHYK SKIN LESIONRylee Salvador SAAVEDRA Work Phone: Start: 38-64-5825Dracw chest X-rayGriselda Krause DO Work Phone: Start: 39-28-7669Qgriw Strep (POC)Griselda Krause DO Work Phone: Start: 66-35-2233HVM (POC)Griselda Krause DO Work Phone: Start: 56-89-0004EeplccivzcmqucbomskmcmfbqlPynjp Kuns DO Work Phone: Start: 12-83-2178Bp soft tissue neck w/contrast materialRacquel Cole MD Work Phone: Start: 35-38-8110Lr thorax w/contrast materialRacquel Cole MD Work Phone: Start: 25-55-4396Opwup count complete auto&auto difrntl wbcMinsheldon Hagan PA-C Work Phone: Start: 39-79-6886Mmbck Interpretation of outside study Doretha Harris MD Work Phone: start: 35-26-1888V-ray of cervical spineGriselda Krause DO Work Phone: Start: 06-30-4209Yjdmsrzb tomography of abdomen and pelvis with contrastBre Spaciety ([employer]) DO Work Phone: Start: 87-10-6242WS of soft tissues of neck with contrast Spaciety ([employer] DO Work Phone: Start: 20-55-8208Zdhjgcomfnw Panel (PCR)GriseldaWeOwe DO Work Phone: Start: 29-41-8794Lwvfk chest X-ray [employer] Work Phone: Start: 69-66-4868Lmvoo brachial pressure indexBre 3[employer] Work Phone: Start: 81-84-6084H-ray of cervical spineBre [employer] Work Phone: Start: 67-70-4941Aaiua metabolic panel calcium total Chicho Bryan MD Work Phone: [phone]: 18-57-1761Npokr spine cervical 2 or 3 views Nate Alvarez MD Work Phone: [phone]: 51-26-8835JXYYQ OXIMETRY, Savannah Cheek MD Work Phone: [phone]: 84-67-9580MS tomography Unspecified body region Doretha Harris MD Work Phone: [phone]: 62-73-2397Paklerjs bldAngela M Capp CAA Work Phone: [phone]: 04-09-2024 End: 61-85-7277Uhymja ant interbody decompress cervical belw g0Pvfmjselara Harris MD Work Phone: [phone]: 90-64-2372Owsfd typing serologic rh (d)Doretha Harris MD Work Phone: [phone]: 98-44-0715Rhvms Interpretation of outside study Doretha aHrris MD Work Phone: [phone]: 71-51-6372Urb bone density study 1/> sites axial skelDoretha Harris MD Work Phone: start: 94-27-8750Osw routine ecg w/least 12 lds trcg only w/o i&rXiaodale Harris MD Work Phone: [phone]: 75-48-8061Htn brain brain stem w/o w/contrast Bo Heaton PA-C Work Phone: [phone]: 76-90-7467Sc soft tissue neck w/contrast Liudmila Cole MD Work Phone: Start: 47-31-1120Rk thorax w/contrast Liudmila Cole MD Work Phone: Start: 13-76-0171Jzzpw count complete auto&auto difrntl wbcRacquel Cole MD Work Phone: Start: 94-23-6847Naijomlgpcb Panel (PCR)DO Griselda Krause Work Phone: Start: 93-67-6958Hehhp chest X-rayDO Griselda Spaciety ([employer]) Work Phone: Start: 33-23-3501Sakkj Interpretation of outside study Ayah Gross MD Work Phone: Start: 21-35-1127Nogge brachial pressure indexDO Griselda Spaciety ([employer] [employer]) Work Phone: Start: 70-11-9365Hbiim limb angiographyDO Griselda Bonfyreroge Work Phone: Start: 45-14-0722MV angiography of headDO Griselda Spaciety ([employer]) Work Phone: Start: 09-40-0063HA angiography of neck vesselsDO Griselda Spaciety ([employer]) Work Phone: Start: 97-98-5902Wcfll volume recorder pneumoplethysmographyDO Griselda Bonfyreroge Work Phone: Start: 83-25-6513TJMN Antigen (LFIA)DO Griselda Krause Work Phone: Start: 78-66-7205IK lumbar spine wo conDO Griselda Krause Work Phone: Start: 51-91-4585UL pre/post mri xrayDO Griselda Krause Work Phone: Start: 74-92-0592Ti thorax w/contrast Liudmila Cole MD Work Phone: Start: 31-31-3161Fb soft tissue neck w/contrast Liudmila Cole MD Work Phone: Start: 95-29-4541Kixua count complete auto&auto difrntl wbcRacquel Cole MD Work Phone: Start: 33-44-8689Flq brain brain stem w/o w/contrast Chai Perez PA-C Work Phone: Start: 44-92-0431AN of head without contrastDO Griselda Krause Work Phone: Start: 49-40-2345Whtoc chest X-rayDO Griselda Krause Work Phone: Start: 17-05-7283VD cervical spine without contrastDO Griselda Krause Work Phone: Start: 61-69-5301Aoxjk depression screening assessment Racquel Cole MD Work Phone: Start: 87-64-9965Jf soft tissue neck w/contrast Liudmila Cole MD Work Phone: Start: 10-93-9004Rq thorax w/contrast Liudmila Cole MD Work Phone: Start: 52-70-1826Sutmo count complete auto&auto difrntl wbcRacquel Cole MD Work Phone: Start: 34-48-0486Rnwie depression screening assessment Asya Engelson RNStart: 27-41-3568Dkzow chest X-rayGriselda Robertsxcision of melanomaBreaidan Krause Work Phone: Plan of Treatment DateCare ActivityDetailAuthorStart: 79-47-4791RGG Vaccine (1 - 1-dose 75+ series)RSV Vaccine (1 - 1-dose 75+ series)[facility]: 04-10-2027 Diabetes ScreeningDiabetes ScreeningParkview Healthtart: 08-26-9719Utscdrml ScreeningDiabetes ScreeningParkview [facility]althtart: 53-50-9821Jmighxtfg for osteoporosisBone Density [facility]: 01-08[facility]2026 End: 41-69-6502Wxnytgk encounter procedureNOMS SWS DERMStart: 04-30-2025 End: 63-98-1724Xathrhae Jzjqwma8904/30/2025 2:00 PM EST Clinical Support [facility] [address] [phone] Oziel Cadena MD [address] [facility] [address]man [address] [place] [address] [facility] NeurologyStart: 04-06-2025 End: 25-69-6097Lejqqut encounter yypytagjc18/20/2025 9:30 AM EDT Office Visit [facility] [address] [place] [address] [address] [place] [address] Doretha Harris MD [address] [place] [address] [facility]: 03-18-2025 End: 74-86-0955Ceepkahc Pabdjpo4303/18/2025 2:20 PM EDT Clinical Support [facility] [address] [facility] [address] [place] [phone] Oziel Cadena MD [address] Katie [address]man [address] [place] [address] [facility] NeurologyStart: 03-18-2025 End: 77-77-9328Epmuvhua Uynjtkz0403/18/2025 11:30 AM EDT Clinical Support N[facility] [address] [place] [address] [place] [phone] Oziel Cadena MD [address] [facility] [address]man [address] [place] [address] ArrivedNOMS [place] NeurologyComment on above:ArrivedStart: 27-51-8274Hrtsc brachial pressure indexCity Hospitaltart: 20-24-2855QSFKC-19 Vaccine ( season)COVID-19 Vaccine ()[facility] HealthcareStart: 65-93-9954Uagvbiwtq vaccinationNOMS HealthcareStart: 02-04-2025 End: 00-06-0034Fojqafnp SupportNOMS SWS NEURComment on above:ArrivedStart: 01-08-2025 End: 32-88-5401Zxcovwy encounter procedureNOMS SWS DERMComment on above:Arrived Start: 01-01-2025 End: 34-85-9677Pmrfjiv encounter eycwcngyh74/17/2025 10:30 AM EDT Office Visit [facility] [address] [place] [phone] Anahi Franco PA [address] [place] [phone] [facility] SWS DERMStart: 12-24-2024 End: 35-30-4516Tkudlygv SupportNOMS SWS NEURComment on above:ArrivedStart: 11-12-2024 End: 65-45-7543Ahrckglu SupportNOMS SWS NEURComment on above:ArrivedStart: 11-07-2024 End: 94-94-7853Gxwmvn-up encounterHematology/OncologyComment on above:[address] and labStart: 09-38-7645XejuhghfjUniversity Hospitals Lake West Medical Center Start: 11-03-2024 End: 35-11-5142Towwnowglgidu metabolic 2000 panel - Serum or PlasmaCOMPREHENSIVE METABOLIC PANEL Lab Routine 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) Expected: 11/03/2024 (Approximate), Expires: 02/02/2025[facility] Work Phone: Comment on above:Expected: 11/03/2024 (Approximate), Expires: 02/02/2025Start: 11-03-2024 End: 10-83-1308Ftcutte encounter qkyhcvxaz09/19/2025 9:00 AM EDT Appointment Radiology Pet CT [address] [place] [address] [place] [address] Ct Chest and neck with contrast and labRadiology Pet CTComment on above:Ct Chest and neck with contrast and labStart: 11-01-2024 End: 11-93-1647FMC W Auto Differential panel - BloodCOMPLETE BLOOD COUNT AND DIFFERENTIAL Lab Routine 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) Expected: 11/01/2024 (Approximate), Expires: 11/01/2024[facility] ClinicComment on above:Expected: 11/01/2024 (Approximate), Expires: 11/01/2024Start: 11-01-2024 End: 65-12-4162Zkwdgbkatpfad metabolic 2000 panel - Serum or PlasmaCOMPREHENSIVE METABOLIC PANEL Lab Routine 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) Expected: 11/01/2024 (Approximate), Expires: 11/01/2024[facility] on above:Expected: 11/01/2024 (Approximate), Expires: 11/01/2024Start: 11-01-2024 End: 85-18-2900SM Chest W contrast IVCT CHEST W IVCON Radiology Routine 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) Expected:11/01/2024 (Approximate), Expires: 12/01/2024[facility] ClinicComment on above:Expected: 11/01/2024 (Approximate), Expires: 12/01/2024Start: 11-01-2024 End: 10-08-6965ZS Neck W contrast IVCT NECK SOFT TISSUE W IVCON Radiology Routine 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 [address] [facility] [address] [place] [address] Doretha Harris MD [address] [facility], [address] [place] [address] [address] [facility] HospitalStart: 09-11-2024 End: 80-73-4615Ehxuvdlr Qosfhta5409/11/2024 10:40 AM EDT Clinical Support [facility] [address] [place] [address] [place] [address] Oziel Cadena MD [address] [facility] [address] [place] [address] [facility] NEURStart: 64-42-2811Ahmoz brachial pressure indexUS ankle/arm indicesCity Hospitaltart: 07-31-2024 End: 01-98-2058Swqjieyh SupportNOMS SWS NEURComment on above:ArrivedStart: 07-02-2024 End: 75-80-8675Gyidfqho SupportNOMS SWS NEURComment on above:ArrivedStart: 06-30-2024 End: 25-99-6690PC Cervical spine 2 or 3 ViewsXR cervical spine 2-3 views Imaging Routine Status post cervical spinal fusion Expected: 06/30/2024, Expires: 06/30/2025[facility] Service Area Work Phone: Comment on above:Expected: 06/30/2024, Expires: 06/30/2025Start: 06-30-2024 End: 16-16-0305Evruzmu encounter procedureMercy Health St. Charles HospitalStart: 05-21-2024 End: 86-27-9320Gsbkdusf Vwgzsxh7705/21/2024 2:00 PM EST Clinical Support [facility] [address] [place] [address] Oziel Cadena MD [address] [facility] [address] [place] [address] ArrivedNOMS SWS NEURComment on above:ArrivedStart: 05-16-2024 End: 32-96-9838Vqvwixb encounter jhcetiboa76/29/2024 9:15 AM EST Office Visit [facility] [address] [place] [address] [address] [place] [address] Doretha Harris MD [address] [facility],[address] [place], [place] [phone] [facility] HospitalStart: 05-02-2024 End: 69-36-0575Luelzec encounter procedureMatheny Medical and Educational [facility] Start: 04-30-2024 End: 22-15-5856SJ Cervical spine 2 or 3 ViewsXR cervical spine 2-3 views Imaging Routine Cervical radiculopathy Status post cervical spinal fusion Expected: 04/30/2024, Expires: 04/30/2025[facility] Service Area Work Phone: Comment on above:Expected: 04/30/2024, Expires: 04/30/2025Start: 04-30-2024 End: 34-66-6605Exiosti encounter sowaeaygm98/13/2024 1:00 PM EST Office Visit [facility] [address] [facility] [address] [place] [address] Solomon Narayanan PA-C [address] [place] [address] [facility]: 04-09-2024 End: 80-21-8452Rwnqhngld to same day surgery spiemu7404/09/2024 7:45 AM EDT - 04/09/2024 12:25 PM EDT Surgery [facility] [place] [address] [place] [address] Doretha Harris MD [address] [facility], [address] [place], [place] [phone] Fusion Spine Anterior Cervical and Discectomy C5-6, C6-7 [27711 (CPT )][facility] [place] ORComment on above:Fusion Spine Anterior Cervical and Discectomy C5-6, C6-7 [10231 (CPT )]Start: 04-09-2024 End: 84-30-2400Ldmngl ant interbody decompress cervical belw f6Kdlfti Spine Anterior Cervical and Discectomy Cervical radiculopathy Senile osteoporosis 47:45 AM EDTVirtual [facility] [place] ORStart: 20-07-6022Lkyzfujfey hospital visit by nmcmuujjt74/23/2024 7:45 AM EDT Hospital Encounter [facility] [place] [address] [place] [address] Doretha Harris MD [address] [facility], [address] [place] [address] [facility] [place] ORStart: 77-19-1268YXsI/Tdap/Td Vaccines (2 - Td or Tdap)DTaP/Tdap/Td Vaccines (2 - Td or Tdap)[facility]Start: 95-62-5475Mspip microalbumin profileDTaP,Tdap,Td Vaccine (2 - Td or Tdap)[facility]: 03-11-2024 End: 20-61-3564Hyonuwk encounter qxpvusfkj82/24/2024 11:30 AM EDT Office Visit [facility] [address] [facility] [address] Linda [address] [address] Solomon Narayanan PA-C [address] [place] [address] [facility]Start: 41-69-8634Erxikrwrx vaccinationInfluenza Vaccine (#1)NOMS HealthcareComment on above:Postponed from 02/16/2023 (Patient Refused)Start: 02-27-2024 End: 70-37-4790Uguumtlww to same day surgery centerMatheny Medical and Educational Center [place] ORComment on above:Anterior Cervical Discectomy and Fusion C5-6, C6-7 [78603 (CPT )]Start: 02-27-2024 End: 75-20-4701Tpdiwd ant interbody decompress cervical belw v7Jmxovrs [facility] Fa[place] ORStart: 29-17-3521Pgadbcwqbq hospital visit by physicianMatheny Medical and Educational Center [place] ORStart: 46-41-4907UOOKZ-19 Vaccine ( season) COVID-19 Vaccine ( season)[facility]: 51-51-1259Cjrwg-19 Vaccine ( season)Covid-19 Vaccine ( season)[facility]: 57-80-8371Zqgso-19 Vaccine ( season) Covid-19 Vaccine ( season)[facility]: 60-93-7129Khhosyqfg vaccinationOhio Valley Hospital: 02-15-2024 End: 75-22-5630Ikpraki encounter lqjsciocj37/30/2024 9:00 AM EDT Office Visit [address] [place] [address] Vincenzo Sanchez MD [address] [place] [address] [address], [address] [place] [address] [facility]: 02-13-2024 End: 56-78-4450Hsjqten encounter ybrrxnwoq62/28/2024 11:00 AM EDT Appointment [facility] [address] [place] [address] [facility]: 02-03-2024 End: 96-69-0313Hbogrzer and Metabolites,SNicotine and Metabolites,S Lab Routine Cervical radiculopathy Senile osteoporosis Expected: 02/03/2024 (Approximate), Expires: 01/02/2025[facility] Work Phone: Comment on above:Expected: 02/03/2024 (Approximate), Expires: 01/02/2025Start: 01-03-2024 End: 67-15-4294XNQ Skeletal system.axial Views for bone densityXR DEXA bone density axial skeleton w VFA Imaging Routine Senile osteoporosis Expected: 01/03/2024,Expires: 01/02/2025[facility] Service Area Work Phone: comment on above:Expected: 01/03/2024, Expires: 01/02/2025Start: 01-03-2024 End: 68-96-0184KZ Cervical spine 6 ViewsXR cervical spine complete 6+ views Imaging Routine Cervical radiculopathy Expected: 01/03/2024, Expires: 01/02/2025 [facility] Work Phone: Comment on above:Expected: 01/03/2024, Expires: 01/02/2025Start: 01-03-2024 End: 33-57-9402Bfjlrfv encounter ijcmzxond19/18/2024 1:30 PM EDT Office Visit [facility] [address] Rothman [address] [place] [phone] Doretha Harris MD [address] [facility], [address] [phone] [facility]: 12-13-2023 End: 96-18-5125RH Brain WO and W contrast IVMR brain w and wo IV contrast Imaging Routine Pontine glioma (Multi) Expected: 12/13/2023 (Approximate), Expires: 12/12/2024[facility] Service Area Work Phone: comment on above:Expected: 12/13/2023 (Approximate), Expires: 12/12/2024Start: 12-13-2023 End: 35-46-8360Bnilahy encounter procedureVanderbilt Sports Medicine Centertart: 09-28-2023 End: 96-85-4955Spplkau encounter iucbjjejo91/12/2024 10:15 AM EDT Office Visit [facility] [address] [place] [address] [place] [address] Department [place] [address] [facility]: 14-61-0677Zlbda brachial pressure indexCity Hospitaltart: 08-30-2023 End: 54-95-7226Csxqgnw encounter ktznqymlh35/14/2024 9:40 AM EDT Office Visit [facility] [address] [facility] [address] [place] [address] Nikole Mota NP [address]man [address] [place] [address] [facility] NEURStart: 07-26-2023 End: 87-59-0946Iarjyfz encounter hsofoichd10/08/2024 1:30 PM EST Procedure Visit [facility] [address] [place] [phone] Nikole Mota ADULT LITERACY TEACHER [address] [place] [address] [facility] NE[facility]O 210Start: 07-19-2023 End: 72-69-9115Qtrxudcb Ezunttu9207/19/2023 1:30 PM EST Clinical Support [facility] [address] [place] [address] Nikole Mota, ADULT LITERACY TEACHER [address] [facility] [address] [phone] Cervical dystoniaNOMS SWS NEURComment on above: Cervical dystoniaStart: 66-02-1488Vpkaitbrwy Health ScreeningBehavioral Health ScreeningParkview Healthtart: 20-19-1880Pjgxa volume recorder pneumoplethysmographyUS arterial pvr rest [facility] Start: 15-82-1087UyzdabanqCity Hospitaltart: 47-12-4682XtbljuthaCity Hospitaltart: 69-21-9867Fqfqd volume recorder pneumoplethysmographyUS arterial pvr rest [facility] Start: 25-43-4291PWJAY-19 Vaccine ( season)COVID-19 Vaccine ( season)[facility]: 40-07-7786Xvadmvwep vaccinationINFLUENZA (Season Ended)[facility]: 27-18-6110IVS High Risk: (Elderly (60+) or Population) (1 - Risk 60-74 years 1-dose series)RSV High Risk: (Elderly (60+) or Population) (1 - Risk 60-74 years 1-dose series)[facility]: 08-12-4502QXS patients and/or patients aged 60+ years (1 - 1-dose 60+ series)RSV patients and/or patients aged 60+ years (1 - 1-dose 60+ series) [facility]: 48-28-6243ZPF Vaccine (1 - 1-dose 60+ series)RSV Vaccine (1 - 1-dose 60+ series)[facility]: 10-30-2022 End: 66-99-6133AYH W Auto Differential panel - BloodCBC + DIFF Lab Routine 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) Lung nodules Malignant neoplasm of head, face and neck (HCC) Expected: 10/30/2022 (Approximate), Expires: 10/30/2022[facility] Work Phone: Comment on above:Expected: 10/30/2022 (Approximate), Expires: 10/30/2022Start: 10-30-2022 End: 77-63-6622Hanjdlqyghyth metabolic 2000 panel - Serum or PlasmaCOMP METABOLIC PANEL Lab Routine 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) Lung nodules Malignant neoplasm of head, face and neck (HCC) Expected: 10/30/2022 (Approximate), Expires: 10/30/2022[facility] Work Phone: Comment on above:Expected: 10/30/2022 (Approximate), Expires: 10/30/2022Start: 10-30-2022 End: 20-73-1658Du soft tissue neck w/contrast materialCT NECK SOFT TISSUE W IVCON Radiology Routine Malignant neoplasm of head, face and neck (HCC) Expect ed: 10/30/2022 (Approximate), Expires: 11/29/2022[facility] Work Phone: Comment on above:Expected: 10/30/2022 (Approximate), Expires: 11/29/2022Start: 10-30-2022 End: 91-46-5331Pr thorax w/contrast materialCT CHEST W IVCON Radiology Routine Lung nodules Expected: 10/30/2022 (Approximate), Expires: 11/29/2022[facility] Work Phone: Comment on above:Expected: 10/30/2022 (Approximate), Expires: 11/29/2022Start: 29-15-1746Jzbkv depression screening assessment DEPRESSION SCREENINGParkview Healthtart: 95-94-0887Xcevqoy CultureAerobic CultureCity Hospitaltart: 45-96-7889Nitscabpw Culture Anaerobic CultureCity Hospitaltart: 15-75-0593Bllplceyaqp observation [Identifier] in Unspecified specimen by Gram stainCity Hospitaltart: 42-02-3075Bkdtphhpximzm fluid cultureCity Hospitaltart: 07-17-2022 End: 66-72-7343YyidxbeosCity Hospitaltart: 86-79-4548KspmdqiijCity Hospitaltart: 78-96-4083ZSHNXZXFKP ASSESSMENTDEPRESSION ASSESSMENTParkview Healthtart: 45-26-6370Rhymp chest X-rayXR ribs LT min 3V w CXR1V*[facility]: 13-21-8532JA Unspecified body region ViewsCity Hospitaltart: 60-17-3598Alpbzevjj vaccinationParkview Healthtart: 14-42-5427Zzovn depression screening assessmentDEPRESSION SCREENINGParkview Healthtart: 92-36-2811UJKNY-19 VACCINE (3 - Booster for Pfizer series)COVID-19 VACCINE (3 - Booster for Pfizer series) [facility]: 63-96-0664KPBMJMBAYZ ASSESSMENTDEPRESSION ASSESSMENT [facility]: 72-27-5982LNNPH-19 VACCINE (3 - Booster for Pfizer series)COVID-19 VACCINE (3 - Booster for Pfizer series)[facility]: 74-42-2532ZPLTHCUC CANCER SCREENING DISCUSSIONPROSTATE CANCER SCREENING DISCUSSIONParkview Healthtart: 07-26-1671Uliweqjr specific antigen measurement Prostate Cancer Screening DiscussionParkview Healthtart: 2012 Pneumococcal Vaccine: 50+ (1 of 1 - PCV)Pneumococcal Vaccine: 50+ (1 of 1 - PCV) [facility]: 22-80-3310Gjlbqirkw for malignant neoplasm of lungLung Cancer ScreeningUnProtestant Deaconess HospitalStart: 85-82-0488IXYHGDQZ VACCINE (1 of 2)SHINGRIX VACCINE (1 of 2)[facility]: 26-27-3623Umsirn Vaccines (1 of 2)Zoster Vaccines (1 of 2)[facility] Start: 59-07-9333HICMYNMVI (FIT-DNA)COLOGUARD (FIT-DNA)[facility]: 40-79-0544FqekbmylagrINTWCUCLJECIabmfqpmz ClinicStart: 12-04-0954SHMJUYQDQJ CANCER SCREENINGCOLORECTAL CANCER SCREENINGParkview Healthtart: 88-68-4902ON COLONOGRAPHYCT COLONOGRAPHYParkview Healthtart: 11-45-2658ACRIK OCCULT BLOOD FECAL OCCULT BLOODParkview Healthtart: 46-43-4565Eglevune specific antigen measurementProstate Cancer Screening DiscussionParkview Healthtart: 11-25-2007 Screening for malignant neoplasm of colonParkview Healthtart: 11-25-2007 SIGMOIDOSCOPYSIGMOIDOSCOPYParkview Healthtart: 46-86-6913Usdff panelLipid ScreeningParkview Healthtart: 40-35-7796JHFGD SCREENLIPID SCREENParkview Healthtart: 93-13-3994Bhfmhvqyw A Vaccines (1 of 2 - Risk 2-dose series) Hepatitis A Vaccines (1 of 2 - Risk 2-dose series)[facility]: 87-87-3730Kcivfyxqidhb vaccinationPneumococcal Vaccine (1 of 2 - PCV)[facility]: 90-68-0358Tyhbf microalbumin profileDTAP,TDAP,TD (1 - Tdap)[facility]: 79-32-2044Eqahmzi Screening Anxiety ScreeningParkview Healthtart: 15-67-3928Dfwqonruwz ScreeningDepression ScreeningOhioHealth Grady Memorial Hospitalrt: 94-54-1391Jxuawcsu mellitus screeningDiabetes ScreeningOhio Valley Hospital: 52-95-6778HAVMENJIB C SCREENING HEPATITIS C SCREENINGParkview Healthtart: 43-37-9985Sogltsjdz C screening Hepatitis C ScreeningOhio Valley Hospital: 69-42-2529HXU SCREENINGHIV SCREENINGParkview Healthtart: 60-41-5158AEP screeningHIV ScreeningOhioHealth Grady Memorial Hospitalrt: 68-33-9947Nfxbizwxrbli Vaccine: Pediatrics (0 to 5 Years) and At-Risk Patients (6 to 64 Years) (1 of 2 - PCV)Pneumococcal Vaccine: Pediatrics (0 to 5 Years) and At-Risk Patients (6 to 64 Years) (1 of 2 - PCV)[facility]: 79-25-5741ZNI Vaccines (1 of 1 - Standard series)MMR Vaccines (1 of 1 - Standard series)[facility]: 99-07-4811Bfbesz wellness visitWelcome to Medicare Visit [facility]: 02-66-9134YBJ screeningHIV Screening [facility]: 55-62-3080Unrvy panelLipid Panel [facility]: 97-47-0533Anjgtgjle for malignant neoplasm of colonNOMoberly Regional Medical CenterStart: 43-53-0087Dsefjbdwh for osteoporosisBone Density ScanUnCleveland Clinic [facility]: 89-26-3106Zmpjzj Adult PhysicalYearly Adult PhysicalTrinity Health System East CampusAnkle brachial pressure indexUniversity Hospitals Lake West Medical CenterBacteria identified in Cerebral spinal fluid by CultureCSF CULT + STAIN Microbiology Routine NPH (normal pressure hydrocephalus) ([facility]) Ordered: 09/13/2022[facility] Work Phone: Comment on above:Ordered: 09/13/2022acteria identified in Unspecified specimen by Aerobe cultureUniversity Hospitals Lake West Medical CenterBacteria identified in Unspecified specimen by Anaerobe cultureUniversity Hospitals Lake West Medical Center End: 72-98-7721Yswaj metabolic 2000 panel - Serum or PlasmaBasic metabolic panel Lab Routine Morning draw (Lab) for 3 Occurrences starting 04/10/2024 until , 1 completedTrinity Health System East Campus Work Phone: Comment on above:Morning draw (Lab) for 3 Occurrences starting 04/10/2024 until 04/12/2024, 1 completed End: 50-38-6307LDB panel - Blood by Automated countCBC Lab Routine Morning draw (Lab) for 3 Occurrences starting 04/10/2024 until 04/12/2024, 1 completed [facility] Work Phone: Comment on above:Morning draw (Lab) for 3 Occurrences starting 04/10/2024 until 04/12/2024, 1 completedCell count panel - Cerebral spinal fluidCSF CELL COUNT Lab Routine NPH (normal pressure hydrocephalus) ([facility]) Ordered: 09/13/2022[facility] Work Phone: Comment on above:Ordered: 09/13/2022ell count, cerebrospinal fluidUniversity Hospitals Lake West Medical CenterComprehensive metabolic 2000 panel - Serum or PlasmaUniversity Hospitals Lake West Medical CenterComprehensive metabolic 2000 panel - Serum or PlasmaUniversity Hospitals Lake West Medical CenterComprehensive metabolic 2000 panel - Serum or PlasmaUniversity Hospitals Lake West Medical Center End: 53-26-2385Hbuhhqpsuo Pulse oximetry, In Phase 1Continuous Pulse oximetry, In Phase 1 Respiratory Care Routine Continuous until discontinued starting 04/09/2024[facility] Service Area Work Phone: Comment on above:Continuous until discontinued starting 04/09/2024Enolase.neuron specific [Mass/volume] in Serum or Plasma by ImmunoassayUniversity Hospitals Lake West Medical CenterFungus identified in Unspecified specimen by CultureUniversity Hospitals Lake West Medical CenterGlucose [Mass/volume] in Cerebral spinal fluidUniversity Hospitals Lake West Medical CenterGlucose [Mass/volume] in Serum or PlasmaPOCT Glucose Point of Care Testing - Docked Device Routine As needed (Lab) until discontinued starting 04/09/2024[facility] Service Area Work Phone: comment on above:As needed (Lab) until discontinued starting 04/09/2024 End: 04-94-9602Sfhguymaj spirometry InstructIncentive spirometry Instruct Respiratory Care Routine Once for 1 Occurrences starting 04/09/2024 until 04/09/2024[facility] Work Phone: Comment on above:Once for 1 Occurrences starting 04/09/2024 until 04/09/2024IR LP FOR DRAINAGE (PRESSURE)IR LP FOR DRAINAGE (PRESSURE) Radiology Routine NPH (normal pressure hydrocephalus) (HCC) [facility]: Comment on above:Ordered: 09/13/2022 Meningitis+Encephalitis pathogens DNA and RNA panel - Cerebral spinal fluid by JER with non-probe detectionUniversity [facility] End: 78-28-2264Fgp brain brain stem w/o w/contrast materialMRI BRAIN WO/W IVCON Radiology Routine 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HCC) 1 Occurrences starting 09/20/2022 until [facility] Work Phone: Comment on above:1 Occurrences starting 09/20/2022 until 10/20/2023atient EducationMer[facility] Work Phone: Patient referralMer[facility] Work Phone: Protein [Mass/volume] in Cerebral spinal fluid [facility] End: 18-23-9051Nknmezvn Catheter RemovalUrethral Catheter Removal Procedures Routine Once for 1 Occurrences starting 04/09/2024 until 04/09/2024[facility] Work Phone: Comment on above:Once for 1 Occurrences starting 04/09/2024 until 04/09/2024Virus identified in Unspecified specimen by Culture [facility] End: 01-57-2124MC Cervical [facility] Work Phone: comment on above:Once for 1 Occurrences starting 02/13/2024 until 02/13/2024XR Chest 2 ViewsXR chest 2 views Imaging Routine Cervical radiculopathy Senile osteoporosis 02/13/2024 11:10 AM [facility] Work Phone: [facility] Immunizations Immunization DateImmunizationNotesCare IegfrezrZtgoxbcm21-81-4962GTXXA-06 Vaccine Pfizer - Documentation Purposes OnlyBrett Kuns Other [facility]07-15-2021COVID-19 Vaccine Pfizer - Documentation Purposes OnlyBrett Kuns Other [facility]08-08-2016KENALOG - 10 mgBrett Kuns Other [employer] Other [id number] per 15 mgBrett Kuns Other [employer] Other [id number] toxoid, reduced diphtheria toxoid, and acellular pertussis vaccine, adsorbedBrett Kuns Other [employer] Other Payers DatePayer CategoryPayerPolicy [id number] 2024Medicare [id number] [id number] Care (Private)[facility] 1.2.840.300246.1.13.647.2.7.9.280560.489337.54448-02-9188[facility] [id number] 2.16.840.8.340928.58594637-45-3201Gkgvxrj Health InsuranceMER[facility] GENERIC [id number] 2021-Present [phone] [address] [place] [address] [id number] 2019MedicaidCARESOURCE MEDICAID [facility] MEDICAID [id number] 2019-Present [phone] [address] [place] [address] [id number] [id number] 2019Medicaid1.2.840.561905.1.13.159.2.7.3.572145.50298-76-9077Jqretuy Health Insurance1.2.840.028037.1.13.159.2.7.3.412216.60002-18-0578Ojihqmd [id number]-[id number]p17-86-3394 [id number] 2.16.840.2.328331.61883482-22-1357Oqgatrn17203545 2.16.840.1.773212.3.579.2.88401-93-5126Zulfxjl65264585 2.16.840.1.804762.3.579.2.18024-55-4179Ozvbavr94363737 2.16840.1.432506.3.579.2.10550-58-4026Wtfcbds458979226 2.16.840.1.973359.3.579.2.695654-33-8064Uehcrxb379565782 2.16840.1.632626.3.579.2.107014-20-5970Rxekukd114009200 2.16840.1.784329.3.579.2.701820-16-7756Rtwmxtc21701578 2.840.1.533661.3.579.2.881193-12-3037Dohgcwj18005773 2.16840.1.460533.3.579.2.757376-20-8066Jnzgpjt31568704 2.16840.1.349328.3.579.2.926744-54-4479Oqvesxs49913559 2.16840.1.619250.3.579.2.470094-95-8728Wujjxwo74005296 2.16840.1.514369.3.579.2.155168-43-3933Luvprgw53950222 2.16840.1.841697.3.579.2.752219-91-6420Vsijboy80473844 2.16840.1.705015.3.579.2.195701-08-4199Ursxfug32465989 2.16840.1.322990.3.579.2.455684-07-6394Bocnkkz48459374 2.16.840.1.581085.3.579.2.896941-68-8854Lxqxgsb07392949 2.16.840.1.202897.3.579.2.542266-80-3381Jpqtrio32507667 2.16.840.1.519581.3.579.2.316206-89-5052Vcrzioj891969798 2.16.840.1.875934.3.579.2.905019-35-2010Iycxaih043854722 2.16.840.1.498261.3.579.2.141718-37-5135Kdmauwo577546086 2.16.840.1.858591.3.579.2.321389-34-2228Lfqgmxl82652264 2.16.840.1.409757.3.579.2.758422-12-5240Ytyiiad24921799 2.16.840.1.452999.3.579.2.702457-92-3016Fdgkvvu90694566 2.16.840.1.119648.3.579.2.131521-85-3397Stystvt66454217 2.16.840.1.095390.3.579.2.680876-74-3896Abymteu10190643 2.16.840.1.765193.3.579.2.674087-65-5145Vwymxcc8217647 2.16.840.1.533806.3.579.2.663174-75-0913Hcwfadn1401904 2.16.840.1.999033.3.579.2.715478-49-9054Nadooyp1098011 2.16.840.1.053026.3.579.2.973174-31-2133Bgppjdc2794555 2.16.840.1.370838.3.579.2.661355-30-1603Hbishxj8627922 2..840.1.516689.3.579.2.067869-55-9079Vpaqqdv486873718 2..840.1.740317.3.579.2.55931-33-7069Uexsrrv289247238 2.0.1.584255.3.579.2.25736-51-9841Alsjuqe183488694 2.0.1.833410.3.579.2.83356-85-7738Dyvymxx925048766 2..1.521604.3.579.2.15598-47-8854Lzvorpg908888477 2..1.769811.3.579.2.97295-49-2540Ghlxoaz014609757 2..1.813969.3.579.2.40788-69-4331Sivqkwx135046995 2.0.1.051611.3.579.2.196Private Health [id number] 8yy531r9-3296-63gb-abng-71xrt2330676WojilgsOAB757730722708 x90d244g-nif7-8d56-o8b1-t2c4t74y5724Fhnqeqa41524053 2.840.1.940831.3.579.2.844Iculmff05958813 2.840.1.531038.3.579.2.531 Fyxqfkt86655461 2.840.1.942692.3.579.2.246Cvcpxaz46254573 2.840.1.338467.3.579.2.707Dbenocv55740234 2.840.1.943094.3.579.2.531 Myryzbs26763716 2.840.1.750897.3.579.2.113Trwsyts69221689 2.16.840.1.962662.3.579.2.387Kqheptm46404658 2.16.840.1.585217.3.579.2.531 Vdqrcil16886793 2.16.840.1.545216.3.579.2.531 Social History DateTypeDetailFacilityStart: 04-29-2018 End: 39-93-6137Ymevvtz smoking status NHISSmoker (finding)[facility] 84-72-5163Whv [facility]: 01-39-9775Zqbtlwu smoking status NHISEx-smokerParkview Healthtart: 06-18-1973 History of tobacco useCigarette SmokerParkview Healthtart: 10-16-2019 End: 64-03-1555Hnexhmnpnz smoked current (pack per day) - Reported1.5Cdunlap memorial hospital ClinicStart: 10-16-2019 End: 55-73-3283Hgmsmzq use and exposureSmokeless tobacco non-userParkview Healthtart: 10-14-2020 End: 20-47-9776Ciuocmn intakeEx-drinker (finding)[facility]: 89-96-9893Yfksdpy SDOH Alcohol Commentquit 2002[facility]: 10-16-2019 Tobacco Commentquit smoking 01/2019[facility]: 70-94-3490Mae [facility]Not on fileParkview Healthtart: 10-03-2021 End: 34-46-4830Qqeacvqd to SARS-CoV-2 (event)Not sureParkview Healthtart: 07-03-2023 End: 03-26-3050Pdk [facility]igned At [facility] EnterpriseStart: 03-10-2022 End: 92-34-9242Sulfhuxs to SARS-CoV-2 (event)Unable to assessMiami Valley Hospital Work Phone: Start: 12-28-2022 End: 03-22-1781Uwgnx SmokerMOUNTAIN VIEW HOSPITAL EnterpriseStart: 42-10-5270Gdrgrlj Comment6-10 cigarettes/dayNOMS HealthcareStart: 16-01-8696Qsrmgo identityIdentifies as male gender (finding)[facility] HealthcareStart: 77-24-8447Gwrwhp orientationHeterosexual (finding)[facility] HealthcareTobacco smoking status NHISTobacco smoking consumption unknownTr[facility] Work Phone: Start: 10-05-2023 End: 73-09-4130Sqcrfwygy beverage intakeLifetime non-drinker (finding)[facility] Work Phone: Start: 06-02-5006Zghsp Depression Screening Assessment 2C[facility] ClinicHow often to you have a drink containing alcohol?Never [facility] CampusIn the past 12 months, was there a time when you were not able to pay the mortgage or rent on time?NoTr[facility] Work Phone: Start: 04-28-2024 End: 43-42-0476FvcCgpx (finding)[facility] CenterNEGATED: Highlighted rowStart: NINFHistory of tobacco usePassive smokerUnProtestant Deaconess Hospital Work Phone: Medical Equipment Procedure CodeEquipment CodeEquipment Original TextEquipment IdentifierDates Angiogram, lower extremity, leftMultiple peripheral artery stent, bare-metal ()[id number] FDAStart: 68-68-0006Ieddkusle, [employer] 6 X 11 X 14 - [id number] - [id number]_azwSdsud: 04-09-2024 Allograft, [employer] 6 X 11 X 14 - [id number] - [id number]: 62-99-3667Tebpn, Acp, 1.6v, 2 Level, 34mm - [id number]: 70-46-6108Pedir, Acp, Self Drill, 3.5 X 17mm, Variable - [id number]_coy Start: .5 X 19mm [id number]_hbfYlmtv: 06-69-5515Cirjlhs on above: Description: per bill only jdr 04/10 Goals DatePatient GoalDesired Activity/StatePersonal health goal Functional Status FduyPolciqnvbrXqaixbDhvtgain27-05-8422Gstgjcs Health Questionnaire 2 item (PHQ- 2) [Reported][facility] Work Phone: 1(177) 185-93260050729-53-3277BCL-9 quick depression assessment panel [Reported.PHQ][facility] Work Phone: Clinical Notes 11-03-2008 to 03-24-2025 Note Date & OqgvBknxMhjtbnkq13-96-8272 NoteNeurosurgery Consult Chief Complaint: Neck and shoulder pain. History of Present Illness: Shantel Melendez is a 64 y.o. male who presents in kind referral from [facility] for the management to discuss placement of a cervical spinal cord stimulation system. He has a history of neck and left upper extremity pain which has been present for at least 10 years. It is gradually progressed and had been associated with pain and numbness with tingling in the 4th and 5th digits of left hand. He had been evaluated by neurosurgery at [facility] and had been found to have cervical spondylosis. He underwent a C5-7 anterior cervical discectomy and fusion on 04/09/2024. After that surgery, there was improvement in the 4th and 5th digits, but much of the pain in the shoulder, neck, and proximal to the elbow did not improve. Pain is currently centered in the left lateral neck extending into the proximal portion of the shoulder. There is less pain but more tingling which extends from the shoulder to the elbow. There is also some intermittent uncomfortable sensation in the hand. He has a generalized sense of weakness in the left shoulder. He had undergone multiple treatments by pain management without substantial and sustained improvement in pain. On 02/09/2025, he underwent a percutaneous trial of cervical spinal cord stimulation by Dr. Ramsey using [employer] hardware. This resulted in a very substantial improvement in pain estimated at 80%. The patient noted improvement in functional abilities including the ability to use the left arm and to sleep. While improvement was significant, he notes that a portion of the lateral shoulder pain was not covered during the trial. Based on these findings, he is referred to discuss placement of permanent spinal cord stimulation system. Of note, he does have a history of some type of venous thromboembolism he describes as a clot in the leg . He also has a history of cardiac disease and is maintained on aspirin and Plavix after a prior PCTA. His delivery nurse had furnished clearance for him to be off of these agents for his trial. Problem List: Problem List[1] Past Medical History: Medical History[2] Past Surgical History: Surgical History[3] Medications: Current Medications[4] Allergies: Allergies[5] Social History: Social History Socioeconomic History Marital status: Spouse name: Not on file Number of children: Not on file Years of education: Not on file Highest education level: Not on file Occupational History Not on file Tobacco Use Smoking status: Every Day Current packs/day: 0.50 Average packs/day: 0.5 packs/day for 52.4 years (26.2 ttl pk-yrs) Types: Cigarettes Start date: 1972 Smokeless tobacco: Never Substance and Sexual Activity Alcohol use: Never Drug use: Never Sexual activity: Yes Partners: Female control/protection: None Other Topics Concern Not on file Social History Narrative Not on file Social Drivers of Health Financial Resource Strain: Low Risk (04/09/2024) Received from [facility] Overall Financial Resource Strain (CARDIA) Difficulty of Paying Living Expenses: Not hard at all Food Insecurity: Not on file Transportation Needs: No Transportation Needs (04/09/2024) Received from [facility] PRAPARE - Transportation Lack of Transportation (Medical): No Lack of Transportation (Non-Medical): No Physical Activity: Not on file Stress: Not on file Social Connections: Not on file Intimate Partner Violence: Unknown (03/24/2025) Humiliation, Afraid, Rape, and Kick questionnaire Fear of Current or Ex-Partner: Patient unable to answer Emotionally Abused: Not on file Physically Abused: Not on file Sexually Abused: Not on file Housing Stability: Low Risk (04/09/2024) Received from [facility] Housing Stability Vital Sign Unable to Pay for Housing in the Last Year: No Number of Times Moved in the Last Year: 1 Homeless in the Last Year: No Family History: Family History[6] Review of Systems: Review of Systems Musculoskeletal: Positive for arthralgias (LEFT shoulder pain) and neck pain. Neurological: Positive for weakness (LEFT arm) and numbness (LEFT ARM). Exam: Vitals: Vitals: 03/24/25 1042 BP: 113/70 Pulse: 76 Temp: 36.9 ???C (98.4 ???F) Body mass index is 24.33 kg/m???. I/O: @IOBRIEF@ General: Awake, alert, NAD. Well groomed. HEENT: Normocephalic, atraumatic. Well-healed anterior cervical scar. Heart: Regular rate and rhythm. Lungs: Clear to auscultation bilaterally. Abdomen: Soft, non-tender, non-distended. Bowel sounds present. Extremities: No cyanosis or edema. No noted deformities. Neurologic: Appropriate affect during exam. Oriented x 3. Normal fluency and prosody of speech. Content appropriate and higher function appears intact. 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 documented in this [facility]09-04-2025 Evaluation note* Author Shilpi Lantigua [facility] 2024 5:18pmSooner if needed, the ER if concerns,The above note written by Shilpi Lantigua LPN acting as human recorder, note dictated by Dr. Griselda Krause [facility] Work Phone: 1([phone]) 385-561909-04-2025 Evaluation note* Author Shilpi Lantigua [facility] 2024 5:18pmSooner if needed, the ER if concerns,The above note written by Shilpi Lantigua LPN acting as human recorder, note dictated by Dr. Griselda Krause Author Curtis Covarrubias [facility] 2024 1:58pmThe above note written by YOBANI Stein acting as human recorder, note dictated by Dr.Brett Krause. [facility] Work Phone: 1(775) 897-649909-04-2025 Evaluation note* Author Shilpi Lantigua [facility] 2024 4:18pmSooner if needed, the ER if concerns,The above note written by Shilpi Lantigua LPN acting as human recorder, note dictated by Dr. Griselda Krause Author Curtis Covarrubias [facility] 2024 12:58pmThe above note written by YOBANI Stein acting as human recorder, note dictated by Dr.Brett Krause. [facility] Work Phone: 1(239) 440-464208-20-2025 History of Present illness Narrative* Oziel Cadena [...] to alleviate the pain. documented in this encounterSaint John's Health SystemCncrluhmcf57-69-5704 Evaluation note* Diagnosis Onset Date Resolution Status Admit Date Colon polyps acuteJuly 2024 3:14pmDyspepsiaacuteJuly 2024 3:14pmGERD (gastroesophageal reflux disease)acuteJuly 2024 3:14pmAnxiety and depressionacuteSept2024 10:28amBurning sensationacuteSept2024 10:28amColon polypsacuteSept2024 10:28amHyperlipidemiaacute [place] 2024 10:28amMedicare annual wellness visit, initialacuteSept2024 10:28amNicotine dependence with current useacutept2024 10:28amPAD (peripheral artery disease)acuteSept2024 10:28amScreening for prostate canceracuteSept2024 10:28am [facility] Work Phone: 1(147) 386-766607-24-2025 History of Present illness Narrative* QUENTIN Vail [...] INFLAMED SEBORRHEIC KERATOSIS Left Wrist - Anterior Kenedy and brown stuck on verrucous scaly papule [...] limited to risks of scarring, darker or lens coater pigmentary changes, recurrence, incomplete removal and infection. [...] limited to risks of scarring, darker or lens coater pigmentary changes, recurrence, incomplete removal and infection. [...] 1 year, skin check documented in this encounterSaint John's Health SystemDkkixsgzjh71-64-8656 History of Present illness Narrative* Oziel Cadena [...] cord stimulator, as suggested by his painter spring, and is scheduled to see his doctor [...] injection was administered today. documented in this [facility]06-04-2025 Evaluation note* Author Shilpi Lantigua [facility] 2024 2:36pmSooner if needed, the ER if concerns,The above note written by Shilpi Lantigua LPN acting as human recorder, note dictated by Dr. Griselda Krause [facility] Work Phone: 1(175) 707-936005-28-2025 History of Present illness Narrative* Oziel Cadena [...] ezetimibe (ZETIA) 10 mg, Oral, Daily HYDROcodone-acetaminophen ([place]) 5-325 MG tablet take 1 tablet orally [...] Depression: Not at risk (11/05/2024) Re[facility] from [facility] PHQ-2 PHQ-2 score: 2 REVIEW OF [...] Ana Luisa's absent. Ankle clonus absent. Coordination Utsyko-ai-igos, rapid alternating movements and mnvs-bj-ggzj normal bilaterally without dysmetria. Gait Normal casual, [...] the injections if needed. documented in this encounterSaint John's Health SystemUsrcnvmopa56-62-1973 NoteHNO ID: [id number] Author: RACQUEL COLE MD Service: ? Author Type: Physician Type: Progress Notes Filed: 11/07/2024 11:09 Note Text: NAME: Shantel Melendez CLINIC NO.: [id number] DATE OF SERVICE: November 07, 2024 (Curtis) Some elements in this clinic note that are critical to medical decision making have been carefully reviewed and included from a prior clinic note dated: November 02, 2023 (Curtis) Referring Provider: Griselda Krause, DO Additional Clinicians involved in Shantel Melendez's care: Dr Kimberly Nichole ENT, Dr. 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 10/05/2021 - [place] Brain[place] [facility] [place] There is T2 and [...] microvascular ischemic change. Brainst (more content not included)...[facility]05-19-20[facility] History of Present illness Narrative* [...] PATIENT PRESENTS WITH AN IMPLANTABLE OR ATTACHED CUSTODIAL OFFICER: No RADIOLOGY DEPARTMENT: CT; Exam(s) Completed: Chest and Neck PERIPHERAL IV DATA: Site assessment: Clean,Dry and Intact, Site disposition Discontinued SIGNED BY: RT Craig(R) November 03, 2024 8:32 AM documented in this encounterMiami Valley Hospital05-19-2025 NoteHNO ID: [id number] Author: CURTIS DA SILVA RN Service: ? [...] Melendez DATE: November 03, 2024 TIME: 8:13 [facility]05-19-2025 NoteHNO ID: [id number] Author: SALLY DOYLE RT(R) Service: ? Author [...] PATIENT PRESENTS WITH AN IMPLANTABLE OR ATTACHED CUSTODIAL OFFICER: No RADIOLOGY DEPARTMENT: CT; Exam(s) Completed: Chest and Neck PERIPHERAL IV DATA: Site assessment: Clean,Dry and Intact, Site disposition Discontinued SIGNED BY: Sally Doyle, RT(R) November 03, 2024 8:32 [facility]05-19-2025 Telephone encounter Note* Telephone Encounter - Curtis Da Silva RN - 11/03/2024 7:49 AM EDT Please sign pended labs for 1 year f/u-will draw with CT today Thank You! Curtis Da Silva RN [facility]05-19-2025 Miscellaneous Notes* Telephone Encounter - Curtis Da Silva RN - 11/03/2024 7:49 AM EDT Please sign pended labs for 1 year f/u-will draw with CT today Thank You! Curtis Da Silva RN documented in this encounterMiami Valley Hospital04-28-2025 History of Present illness Narrative* Doretha [...] assess the C7 screw. Doretha Harris MD Engraver Tender of Neurosurgery [facility] Spine [place] [facility] Neuroscience ICU Office: [phone] [1] Past Surgical History: Procedure Laterality Date [...] 60 capsule, Rfl: 0 documented in this [facility] Work Phone: 1(722) 787-532804-21-2025 Radiology Diagnostic [facility]AULT[facility] Main [facility] [address] [place] [address] CT Scan Report Signed Patient: Shantel Melendez MR#: [id number] : 1960 Acct:[id number] Age/Sex: 63 / M ADM Date: 5 Loc: ER Room: Type: [facility] ER Attending Dr: Copies to: Manisha [...] Dorothy Eubanks M.D.10/06/2024 4:08 PM Dictation Location: [place] [address] Transcribed By: [facility] 10/06/24 1608 Dictated By: Dorothy Eubanks MD 10/06/24 1556 Signed By: 10/06/24 1606 [facility] Work Phone: 1(556) 306-394804-21-2025 Radiology Diagnostic study [facility] Main [facility] [address] [place] [address] CT Scan Report Signed Patient: Shantel Melendez MR#: [id number] : 1960 Acct:[id number] Age/Sex: 63 / M ADM Date: 5 Loc: ER Room: Type: [facility] ER Attending Dr: Copies to: Manisha [...] Dorothy Eubanks M.D.10/06/2024 3:56 PM Dictation Location: [place] [address] Transcribed By: [facility] 10/06/24 1556 Dictated By: Dorothy Eubanks MD 10/06/24 1551 Signed By: 10/06/24 1556 [facility] Work Phone: 1(481) 214-374103-27-2025 Evaluation note* Diagnosis Onset Date Resolution Status Admit Date Current every day smoker acuteMarch 2024 8:53amPAD (peripheral artery disease)acuteSeptember 11, 2024 8:53amRight leg claudicationacuteSeptember 11, 2024 8:53am [facility] Work Phone: 1(921) 255-106303-27-2025 Evaluation note* Diagnosis Onset Date Resolution Status Admit Date Current every day smoker acuteMarch 2024 8:53amPAD (peripheral artery disease)acuteSeptember 11, 2024 8:53amRight leg claudicationacuteAugch 2024 8:53amCardiac arrhythmiaacute May 2024 9:37amEssential hypertensionacuteMa2024 9:37am HyperlipidemiaacuteMa2024 9:37amGlioma of braindeletedMa2024 9:37amPAD (peripheral artery disease)deletedOctober 27, 2024 9:37am [facility] Work Phone: 1(985) 120-192303-27-2025 Evaluation note* Diagnosis Onset Date Resolution Status Admit Date Current every day smoker acuteMarch 2024 8:53amPAD (peripheral artery disease)acuteMarch 2024 8:53amRight leg claudicationacuteMarch 2024 8:53amAbdominal painacute October 10, 2024 1:02pmChange in bowel habitsacuteApril 2024 1:02pm DiarrheaacuteApril 2024 1:02pmDysphagiaacuteApril 2024 1:02pmEarly satietyacuteApril 2024 1:02pmUnexplained weight lossacuteApril 2024 1:02pmCardiac arrhythmiaacuteMay 2024 9:37amEssential hypertensionacuteMay 2024 9:37amHyperlipidemiaacuteMay 2024 9:37amGlioma of braindeleted October 27, 2024 9:37amPAD (peripheral artery disease)deletedy 2024 9:37am Abdominal painacuteJune 2024 1:57pmChange in bowel habitsacuteJune 2024 1:57pmDiarrheaacuteJune 2024 1:57pmDysphagiaacuteJune 2024 1:57pm [facility] Work Phone: 1(980) 970-281803-27-2025 Evaluation note* Diagnosis Onset Date Resolution Status Admit Date Current every day smoker acuteMarch 2024 8:53amPAD (peripheral artery disease)acuteMarch 2024 8:53amRight leg claudicationacuteMarch 2024 8:53amAbdominal painacute October 10, 2024 1:02pmChange in bowel habitsacuteApril 2024 1:02pm DiarrheaacuteApril 2024 1:02pmDysphagiaacuteApril 2024 1:02pmEarly satietyacuteApril 2024 1:02pmUnexplained weight lossacuteApril 2024 1:02pmCardiac arrhythmiaacuteMay 2024 9:37amEssential hypertensionacuteMay 2024 9:37amHyperlipidemiaacuteMay 2024 9:37amGlioma of braindeleted October 27, 2024 9:37amPAD (peripheral artery disease)deletedOctober 27, 2024 9:37am Abdominal painacuteJune 2024 1:57pmChange in bowel habitsacuteJune 2024 1:57pmDiarrheaacuteJune 2024 1:57pmDysphagiaacuteJune 2024 1:57pm RSV (respiratory syncytial virus infection)acuteJune 2024 2:26pm [facility] Work Phone: [phone]) 625-210103-27-2025 History of Present illness Narrative* Oziel Cadena [...] ezetimibe (ZETIA) 10 mg, Oral, Daily HYDROcodone-acetaminophen ([place]) 5-325 MG tablet take 1 tablet orally [...] Depression: Not at risk (06/30/2024) Received from [facility] PHQ-2 Patient Health Questionnaire-2 Score: 2 REVIEW [...] Ana Luisa's absent. Ankle clonus absent. Coordination Vumoab-rj-fgor, rapid alternating movements and fojx-tu-pdcx normal bilaterally without dysmetria. Gait Normal casual, [...] the injections if needed. documented in this encounterSaint John's Health [id number] History of Present illness Narrative* Oziel Cadena [...] ezetimibe (ZETIA) 10 mg, Oral, Daily HYDROcodone-acetaminophen ([place]) 5-325 MG tablet take 1 tablet orally [...] Depression: Not at risk (06/30/2024) Received from [facility] PHQ-2 Patient Health Questionnaire-2 Score: 2 REVIEW [...] the injections if needed. documented in this encounterSaint John's Health [id number] Evaluation note* Author Shilpi Lantigua [facility] CenterAuthoredJanuary 2024 4:44pmSooner if needed, the ER if concerns,The above note written by Shilpi Lantigua LPN acting as human recorder, note dictated by Dr. Griselda Krause [facility] Work Phone: 1(553) 712-274201-15-2025 History of Present illness Narrative* Oziel Cadena [...] ezetimibe (ZETIA) 10 mg, Oral, Daily HYDROcodone-acetaminophen ([place]) 5-325 MG tablet take 1 tablet orally [...] Depression: Not at risk (06/30/2024) Received from [facility] PHQ-2 Patient Health Questionnaire-2 Score: 2 REVIEW [...] injections at that time. documented in this encounterSaint John's Health SystemJkyuvnajnx04-28-3242 History of Present illness Narrative* Doretha Harris [...] another set of XR. Doretha Harris MD Engraver Tender of Neurosurgery [facility] [place] [facility] Neuroscience ICU Office: [phone] Scribe Attestation By signing my name below, I, Shira Sen, Scribe, attest that this documentation has been preparedunder the direction and in the presence of Doretha Harris MD. documented in this [facility] Work Phone: 1(609) 823-903212-04-2024 History of Present illness Narrative* Oziel Cadena [...] ezetimibe (ZETIA) 10 mg, Oral, Daily HYDROcodone-acetaminophen ([place]) 5-325 MG tablet take 1 tablet orally [...] Depression: Not at risk (04/09/2024) Received from [facility] PHQ-2 Patient Health Questionnaire-2 Score: 0 REVIEW [...] his injections if needed. documented in this encounterSaint John's Health [id number] History of Present illness Narrative* Solomon Narayanan PA-C - 04/30/2024 1:00 PM EST Images from the original note were not included. [facility] [place] Department of Neurological Surgery Post Operative Patient [...] CAD (coronary artery disease) Peripheral vascular disease ([facility] Past Medical History: Diagnosis Date Anxiety Cataract s/p excision of left Cervical radiculopathy Chronic pain disorder Coronary artery disease Depression Dysphagia thin liquids Hypertension NPH (normal pressure hydrocephalus) (Multi) PAD (peripheral artery disease) ([facility]) s/p stent (05/2023) on ASA 81mg Peripheral vascular disease ([facility]) Pontine lesion watchful waiting Pulmonary nodule Skin [...] directly. Sincerely, RICH Hernandez PA-C Associate Physician Curing Bin Operator, Neurosurgery Clinical Engraver Tender [facility] [employer] [facility] [place] [address] [place] [address] documented in this [facility] Work Phone: 1(184) 859-359111-11-2024 Evaluation note* Diagnosis Onset Date Resolution Status Admit Date Cardiac arrhythmia acuteNovember 2023 9:39amEssential hypertensionacuteNovember 2023 9:39amHyperlipidemiaacuteNovember 2023 9:39amGlioma of braindeleted April 28, 2024 9:39amPAD (peripheral artery disease)deletedNovember 2023 9:39amHyperlipidemiaacuteJanuary 2024 9:23amS/P cervical discectomy acuteJanuary 2024 9:23amScreening for prostate canceracuteJanuary 2024 9:23am [facility] Work Phone: 1([phone]) 584-902910-24-2024 Hospital course Narrative* Aaron Gallo PA-C - [...] HYDROcodone-acetaminophen 5-325 mg tablet; Commonly known as: [place] tiZANidine 4 mg capsule; Commonly known as: Zanaflex Outpatient Follow-Up Future Appointments Date Time Provider Department Center 04/30/2024 1:00 PM Solomon Narayanan PA-C [id number] [facility] 05/02/2024 9:00 AM [facility] [place] 05/02/2024 10:00 AM Helder Jack MD [id number] [facility] 06/30/2024 9:00 AM Doretha Harris MD [id number] [place] Aaron Gallo PA-C documented in this [facility] Work Phone: [phone] 260-693310-24-2024 History of Present illness Narrative* Nikole Lezama, PharmD - 04/10/2024 12:11 PM EDT Pharmacy Medication History Review Shantel Melendez is a 63 y.o. male admitted for Cervical radiculopathy. Pharmacy reviewed the patient's gmvmn-ys-jzewufpcy medications and allergies for accuracy. Medications ADDED: norco Medications CHANGED: Tizanidine nightly to as needed Medications REMOVED: Diamox Albuterol The list below reflects the updated PROTECTOR PLATE ATTACHER list. Prior to Admission Medications Prescriptions Last Dose Informant HYDROcodone-acetaminophen ([place]) 5-325 mg tablet Self Sig: Take 1.5 [...] Report Patient interview (good historian-required some prompting) [facility] medical note 01/29 Additional Comments: none Nikole Lezama PharmD Transitions of Care Pharmacist 04/10/24 Secure Chat preferred If no response call [phone] or DeRev Med Rec * Tori Johnson OT - 04/10/2024 11:57 AM EDT Occupational Therapy Evaluation Patient Name: Shantel Melendez Today's Date: 04/10/2024 Room: [address] [place] [address] Time Calculation Start Time: 1019 Stop Time: [...] bars in shower Prior Function: Level of [place]: Independent with ADLs and functional transfers, Independent [...] LUE LUE: Within Functional Limits Outcome Measures: [facility] Daily Activity Putting on and taking [...] 11:57 AM TORI JOHNSON OT Rehab Office: [phone] * Tia Caceres, PT - 04/10/2024 10:33 AM EDT Physical Therapy Physical Therapy Evaluation Patient Name: Shantel Melendez Department: [place] [address] Room: [address] [place] [address] Today's Date: 04/10/2024 Time Calculation Start Time: [...] Prior Function Per Pt/Caregiver Report Level of [place]: (independent ambulation in/outdoors no device, independent stairclimbing as needed, no falls) ADL Assistance: Independent Homemaking Assistance: Independent Ambulatory Assistance: Independent 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; 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, 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) Leisure: 2 yo grandson Hand Dominance: Right Prior Function Comments: had neck pain, Left UE pain, blurry vision, balance deficits recently Precautions: Precautions Hearing/Visual Limitations: glasses, mild [place] Medical Precautions: Fall precautions (dysphagia, osteoporosis) Post-Surgical [...] reciprocally with supevision; no LOB) Extremity/Trunk Assessments: KEZIA MAST : (AROM grossly: hand, elbow flex/ext & shoulder elevation WFL; strength: grasp 5/5, elbow flex/ext and shoulder elevation >3 (not resisted due to spine precautions)) PATY NEWMAN: (AROM grossly: hand, elbow flex/ext & shoulder [...] hip flexion >3 (not resisted)) Outcome Measures: [facility] Basic Mobility Turning from your back [...] documented in the note. [facility] Work Phone: [phone]) 612-355410-23-2024 Plan of care note* Care Plan - [...] goals for the shift include pain management. [facility] Work Phone: 1([phone]) 400-976310-23-2024 Miscellaneous Notes* Care Plan - Elizabeth Esposito [...] (B) Operative Note Date: 04/09/2024 OR Location: [facility] OR Name: Shantel Melendez, : 1960, Age: 63 y.o., , Sex: male Diagnosis Pre-op Diagnosis * Cervical radiculopathy [M54.12] * Senile osteoporosis [M81.0] Post-op Diagnosis * Cervical radiculopathy [M54.12] * Senile osteoporosis [M81.0] Procedures Fusion Spine Anterior Cervical and Discectomy C5-6, C6-7 - WV ARTHRD ANT INTERBODY DECOMPRESS CERVICAL BELW C2 WV ARTHRD ANT INTERBODY DECOMPRESS CERVICAL BELW C2 [] WV ARTHRD ANT INTERDY CERVCL BELW C2 EA ADDL NTRSPC [85307] WV ALLOGRAFT FOR SPINE SURGERY ONLY STRUCTURAL [42690] WV MICROSURG TQS REQ USE OPERATING MICROSCOPE [98320] Surgeons * Doretha Harris - Primary Resident/Fellow/Other Curing Bin Operator: Surgeons and Role: * Chicho Bryan MD - Resident - Assisting * Rojas Edwards MD - Resident - Assisting Procedure Summary Anesthesia: General ASA: III Anesthesia Staff: Anesthesiologist: Fred Cheek MD C-AA: Shelly Mullins [facility]; NAVEEN Reddy IVONE: Jamee Woodall Estimated [...] 85 mL Specimen: No specimens collected Staff: Outdoor Landscape Architect: Derrell Scrub Person: Beverly Scrub Person: Shaina Drains and/or Catheters: Closed/Suction Drain 1 Neck Bulb 10 Fr. (Active) Urethral Catheter Double-lumen;Non-latex 16 Fr. (Active) Tourniquet Times: Implants: Implants Type Name Action Serial No. Spinal Hardware SCREW, DISTRACTION, 14 MM - [id number] Used, Not Implanted Spinal Hardware ALLOGRAFT, TRIAD LORDOTIC 6 X 11 X 14 - [id number] - [id number] Implanted [id number] Spinal Hardware ALLOGRAFT, TRIAD LORDOTIC 6 X 11 X 14 - [id number] - [id number] Implanted [id number] Spinal Hardware PLATE, ACP, 1.6V, 2 LEVEL, 34MM - [id number] Implanted Spinal Hardware SCREW, ACP, SELF DRILL, 3.5 X 17MM, VARIABLE - [id number] Implanted 3.5 X 19MM SCREW Implanted Findings: [...] then placed our self-retaining retractor in and [place] pins in and placed the disc space [...] 04/09/2024 4:50 PM EDT documented [facility]Tr[facility] Work Phone: [phone] Nurse Note* Shantelle Pacheco RN - 04/09/2024 7:03 PM EDT Patient transferred from PACU to [id number] via stretcher in stable condition. Patient oriented to room, bed, and call light. Skin assessment witnessed by Brianda Dowling RN. Will continue to monitor. [facility]10-23-2024 Nurse Note* Shantelle Pacheco RN - 04/09/2024 7:03 PM EDT Patient transferred from PACU to [id number] via stretcher in stable condition. Patient oriented to room, bed, and call light. Skin assessment witnessed by Brianda Dowling RN. Will continue to monitor. documented in this [facility]Tr[facility] Work Phone: 1(248) 431-856010-23-2024 Hospital Note* Hospital Course - Aaron Gallo PA-C - 04/09/2024 5:04 PM EDT 63M h/p HTN, CAD, PAD s/p stent on ASA81, pontine glioma, tongue cancer p/w LUE radiculopathy, 04/09 s/p C5-7 ACDF 04/10 PT/OT DC recs no needs, post operative xray shows good position, Drain removed [facility] Work Phone: [phone] 363-435610-23-2024 Note* Op Note - Chicho Bryan MD - 04/09/2024 2:30 PM EDT Fusion Spine Anterior Cervical and Discectomy C5-6, C6-7 (B) Operative Note Date: 04/09/2024 OR Location: [facility] OR Name: Shantel Melendez, : 1960, Age: 63 y.o., , Sex: male Diagnosis Pre-op Diagnosis * Cervical radiculopathy [M54.12] * Senile osteoporosis [M81.0] Post-op Diagnosis * Cervical radiculopathy [M54.12] * Senile osteoporosis [M81.0] Procedures Fusion Spine Anterior Cervical and Discectomy C5-6, C6-7 92314 - WV ARTHRD ANT INTERBODY DECOMPRESS CERVICAL BELW C2 WV ARTHRD ANT INTERBODY DECOMPRESS CERVICAL BELW C2 [86248] WV ARTHRD ANT INTERDY CERVCL BELW C2 EA ADDL NTRSPC [39536] WV ALLOGRAFT FOR SPINE SURGERY ONLY STRUCTURAL [24612] WV MICROSURG TQS REQ USE OPERATING MICROSCOPE [69817] Surgeons * Doretha Harris - Primary Resident/Fellow/Other Curing Bin Operator: Surgeons and Role: * hCicho Bryan MD - Resident - Assisting * [...] 85 mL Specimen: No specimens collected Staff: Outdoor Landscape Architect: Derrell Scrub Person: Beverly Scrub Person: Shaina Drains and/or Catheters: Closed/Suction Drain 1 Neck Bulb 10 Fr. (Active) Urethral Catheter Double-lumen;Non-latex 16 Fr. (Active) Tourniquet Times: Implants: Implants Type Name Action Serial No. Spinal Hardware SCREW, DISTRACTION, 14 MM - [id number] Used, Not Implanted Spinal Hardware ALLOGRAFT, TRIAD LORDOTIC 6 X 11 X 14 - [id number] - [id number] Implanted [id number] Spinal Hardware ALLOGRAFT, TRIAD LORDOTIC 6 X 11 X 14 - [id number] - [id number] Implanted [id number] Spinal Hardware PLATE, ACP, 1.6V, 2 LEVEL, 34MM - [id number] Implanted Spinal Hardware SCREW, ACP, SELF DRILL, 3.5 X 17MM, VARIABLE - [id number] Implanted 3.5 X 19MM SCREW Implanted Findings: [...] then placed our self-retaining retractor in and [place] pins in and placed the disc space [...] Harris MD at 04/09/2024 4:50 PM EDT [facility] Work Phone: [phone] Attending History and physical note* Rojas Edwards MD - 04/09/2024 12:22 PM EDT H&P reviewed. The patient was examined and there are no changes to the H&P. Cosigned by Doretha Harris MD at 04/09/2024 12:53 PM EDT Source Note - Rick MckinneyBAILEY-ELECTRICAL INTERN - 03/26/2024 10:30 AM EDT Images from [...] pressure hydrocephalus) (Multi) PAD (peripheral artery disease) ([facility]) s/p stent (05/2023) on ASA 81mg Peripheral vascular disease ([facility]) Pontine lesion watchful waiting Pulmonary nodule [...] mg) by mouth once daily at bedtime. SarahProMD leigh ann PAT ROS: Constitutional: neg Neuro/Psych: [...] Flowsheet Row Pre-Admission Testing from 02/11/2024 in [facility] Questionnaire Series Submission from 02/06/2024 in [facility] with Generic Provider Laura Can [...] or washing dishes? 2.7 filed at 02/11/2024 92906.7 filed at 02/06/2024 0032 Can you do [...] 02/11/2024 1418 7.6 filed at 02/06/2024 003 Caprini DVT Assessment Flowsheet Row Pre-Admission Testing from 02/11/2024 in [facility] DVT Score 11 filed at 02/11/2024 1506 BMI 30 or less filed at 02/11/2024 1506 RETIRED: Current Status Major surgery planned, lasting over 3 hours filed at 02/11/2024 1506 RETIRED: History Prior major surgery, Previous malignancy filed at 02/11/2024 1506 RETIRED: Age 60-75 years filed at 02/11/2024 1506 Modified Frailty Index Flowsheet Row Pre-Admission Testing from 02/11/2024 in [facility] Non-independent functional status (problems with dressing, [...] Flowsheet Row Pre-Admission Testing from 02/11/2024 in [facility] High-Risk Surgery (Intraperitoneal, Intrathoracic,Suprainguinal vascular) 0 [...] Flowsheet Row Pre-Admission Testing from 02/11/2024 in [facility] Smoking status 0 filed at 02/11/2024 [...] Flowsheet Row Pre-Admission Testing from 03/26/2024 in [facility] Pre-Admission Testing from 02/11/2024 in [facility] Do you snore loudly? 0 filed [...] Yellow, Dark-Yellow Appearance, Urine Clear Clear Specific [place], Urine 1.007 1.005 - 1.035 pH, Urine [...] Rate 63 BPM Atrial Rate 63 BPM WV Interval 268 ms QRS Duration 74 ms QT Interval 406 ms QTC Calculation(Bazett) 415 ms P [place] 58 degrees R [place] -3 degrees T [place] 18 degrees QRS Count 10 beats Q [...] given to patient. Neurosurgery: Doretha Harris MD [facility] 01/03/24 seen for cervical radiculopathy. Neurosurgery: Jose Cruz Khan MD [facility] 11/05/23- [facility] seen for cervical stenosis of spine. 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 HEENT/Airway The patient has history of selective right neck dissection (II-V) and bilateral base of tongue/linguial tonsillar excision on 01/30/[address] 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 Currently with limited neck extension. No documented or reported history of airway difficulty. HemOnc: Racquel Cole MD [facility] 11/02/23-[facility] seen for head and neck [...] Cardiology Evaluation Cardiology: Lilliam Cason MD - [facility] (see media tab for last [...] understanding ofpreoperative instructions. After Visit Summary given. [facility] Work Phone: 1(350) 415-187710-23-2024 History and physical note* Rojas Edwards MD [...] pressure hydrocephalus) (Multi) PAD (peripheral artery disease) ([facility]) s/p stent (05/2023) on ASA 81mg Peripheral vascular disease ([facility]) Pontine lesion watchful waiting Pulmonary nodule [...] by mouth once daily at bedtime. HistoricalProviderMD HEART ROS: Constitutional: neg Neuro/Psych: LUE weakness neg [...] Flowsheet Row Pre-Admission Testing from 02/11/2024 in [facility] Questionnaire Series Submission from 02/06/2024 in [facility] with Generic Provider Laura Can [...] or washing dishes? 2.7 filed at 02/11/2024 82559.7 filed at 02/06/2024 0032 Can you do [...] mower? 0 filed at 02/11/20248 4.5filed at 02/06/2024 003 Can you have [...] Flowsheet Row Pre-Admission Testing from 02/11/2024 in [facility] DVT Score 11 filed at 02/11/2024 1506 BMI 30 or less filed at 02/11/2024 1506 RETIRED: Current Status Major surgery planned, lasting over 3 hours filed at 02/11/2024 1506 RETIRED: History Prior major surgery, Previous malignancy filed at 02/11/2024 1506 RETIRED: Age 60-75 years filed at 02/11/2024 1506 Modified Frailty Index Flowsheet Row Pre-Admission Testing from 02/11/2024 in [facility] Non-independent functional status (problems with dressing, [...] Flowsheet Row Pre-Admission Testing from 02/11/2024 in [facility] High-Risk Surgery (Intraperitoneal, Intrathoracic,Suprainguinal vascular) 0 [...] Flowsheet Row Pre-Admission Testing from 02/11/2024 in [facility] Smoking status 0 filed at 02/11/2024 [...] Flowsheet Row Pre-Admission Testing from 03/26/2024 in [facility] Pre-Admission Testing from 02/11/2024 in [facility] Do you snore loudly? 0 filed [...] Yellow, Dark-Yellow Appearance, Urine Clear Clear Specific [place], Urine 1.007 1.005 - 1.035 pH, Urine [...] Rate 63 BPM Atrial Rate 63 BPM WV Interval 268 ms QRS Duration 74 ms QT Interval 406 ms QTC Calculation(Bazett) 415 ms P [place] 58 degrees R [place] -3 degrees T [place] 18 degrees QRS Count 10 beats Q [...] given to patient. Neurosurgery: Doretha Harris MD [facility] 01/03/24 seen for cervical radiculopathy. Neurosurgery: Jose Cruz Khan MD [facility] 11/05/23- [facility] seen for cervical stenosis of spine. 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 HEENT/Airway The patient has history of selective right neck dissection (II-V) and bilateral base of tongue/linguial tonsillar excision on 01/30/[address] 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 Currently with limited neck extension. No documented or reported history of airway difficulty. HemOnc: Racquel Cole MD [facility] 11/02/23-[facility] seen for head and neck cancer. Cardiovascular [...] Cardiology Evaluation Cardiology: Lilliam Cason MD - [facility] (see media tab for last [...] After Visit Summary given. [facility]Tr[facility] Work Phone: 1(117) 595-159110-15-2024 Evaluation note* Author [facility] 2023 10:01amThe above note written by Nida Humphreys LPN, acting as human recorder, note dictated by Dr. Griselda Krause. [facility] Work Phone: 1(771) 954-510808-15-2024 Evaluation note* Author [facility] 2023 10:40amThe above note written by Nida Humphreys LPN, acting as human recorder, note dictated by Dr. Griselda Krause. Author [facility] 2023 11:01amThe above note written by Nida Humphreys LPN, acting as human recorder, note dictated by Dr. Griselda Krause. [facility] Work Phone: 1(285) 254-970607-18-2024 History of Present illness Narrative* Doretha Harris [...] bone stimulator after surgery. Doretha Harris MD Engraver Tender of Neurosurgery [facility] [place] [facility] Neuroscience ICU Office: [phone] Scribe Attestation By signing my name below, Parisa Wright , Erlinda attest that this documentation has been prepared under the direction and in the presence of MD Shirley. documented in this [facility] Work Phone: 1(651) 399-909606-27-2024 History of Present illness Narrative* Helder Jack MD - 12/13/2023 10:00 AM EDT Patient ID: Shantel Melendez is a 63 y.o. male. Referring Physician: Shimon Heaton PA-C [id number] [place] [address] Primary Care Provider: Griselda Krause DO Subjective History of Present Ilness: 62 y.o. presents in neurosurgical consultation from [facility] for cervical stenosis.C/o neck pain and LUE pain, numbness and weakness down to hand for 2 years. SawNeurosurgeon at and has had 2 spinal taps with some improvement. Went to [facility] to be assessed for hydrocephal;us and was told he does not have hydrocephalus. He saw Dr. Lara at the [facility]. Also pain behind left eye. [...] issues. 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 INTERVAL HISTORY (12/13/2023): Since the last visit, he continues to have severe neck pain, which isslowly getting worse, along with some muffled hearing on the left side. He tried going back to parttime work, but the activity made the neck pain much more severe. He saw a Neurosurgeon at [facility] about the cervical stenosis, but he was unwilling to consider surgery for the neck due to the pontine lesion. He has now been to see a Neurosurgery PA (Solomon Narayanan) at [facility] about the neck, who thought [...] ROS is as per documentation in the [facility]. Objective BSA: There is no [...] Nate Benavidez 12/13/2023 9:38 AM Dictation workstation: [id number] Impression 1. Abnormal increased T2 signal in [...] will undergo a new MRI brain at [facility]. -I spent > 40 minutes in face to face consultation to review and discuss the above; 50% of whichor more was dedicated to counseling. Helder Jack MD documented in [facility]Tr[facility] Work Phone: 1(349) 708-464006-27-2024 Instructions* Patient Instructions* Alondra Escamilla RN - 12/13/2023 10:00 AM EDT Your next appointment will be in 5 months. Please schedule your MRI prior to this visit. Please contact [phone] option 5 then option 2 with any questions or concerns. For any scheduling concerns please call [phone] option 1 documented in this encounterTr[facility] Work Phone: 1(303) 531-458806-26-2024 History of Present illness Narrative* Solomon Narayanan PA-C - 12/12/2023 1:00 PM EDT Images from the original note were not included. [facility] [place] Department of Neurological Surgery New Patient Visit [...] as well as had multiple interventions via [facility] including trial ablation which did [...] Motor Strength: 4/5 left biceps, triceps, wrist, windows migration technician Muscle Bulk: Decreased muscle bulk left [...] as well as had multiple interventions via [facility] center including trial ablation which did provide [...] directly. Sincerely, RICH Hernandez PA-C Associate Physician Curing Bin Operator, Neurosurgery Clinical Engraver Tender [facility] [place] [address] [place] [address] documented in this encounterTr[facility] Work Phone: 1(808) 451-681705-17-2024 Instructions* Patient Instructions* Racquel Cole MD - 11/02/2023 10:13 AM EDT Scans and labs in 1 year RTC 1 week after documented in this encounterMiami Valley Hospital05-17-2024 History of Present illness Narrative* Racquel Cole MD - 11/02/2023 9:45 AM EDT Images from the original note were not included. NAME: Shantel Melendez NO.: [id number] DATE OF SERVICE: November 02, 2023 (Curtis) Some elements in this clinic note that are critical to medical decision making have been carefully reviewed and included from a prior clinic note dated: November 03, 2022 (Curtis). Referring Provider: Griselda Krause DO Additional Clinicians involved in Shantel Melendez's care: Dr Kimberly Nichole ENT, Dr. 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 10/05/2021 - [place] [facility] [place] There is T2 and [...] respiratory bronchiolitis. 01/30/2019 - Neck dissection at [facility] Base of tongue did note [...] 2020: Doing well, still smokes, works at [employer] in [place]. Reviewed scans and there is no evidence [...] which included preparing to see the patient, dnwe-ks-nbxl patient care, completing clinical documentation, performing a medically appropriate examination, counseling and educating the patient/family/caregiver, ordering medications, tests, or p rocedures, independently interpreting results (not separately reported), communicating results to the patient/family/caregiver, and care coordination (not separately reported). Racquel Cole MD, CPE Hematology and Oncology Services Provided at: [place], [place] Scribe Attestation: This note was scribed by Tanvi Salazar on November 02, 2023 under the direction and supervision of Dr. Racquel oCle. I attest that all of the information documented is correct to the best of my knowledge. Provider Attestation: I, Racquel Cole MD, attest that all information documented by the above scribe is correct, and was supervised by me and under my direction. CC: Griselda Krause, DO [address] [place] [phone] [address] Kimber[address] NEWMAN ENT[address] Dr. Nichole ENT Dr. Ibarra NM surgery [facility]. documented in this encounterMiami Valley Hospital05-13-2024 Evaluation note* Author Shilpi Lantigua [facility] Medical CenterAuthoredMay 2023 10:32amSooner if needed, the ER if concerns,The above note written by Shilpi Lantigua LPN acting as human recorder, note dictated by Dr. Griselda Krause [facility] Work Phone: 1(800) 979-734805-10-2024 History of Present illness Narrative* Curtis Da [...] PATIENT PRESENTS WITH AN IMPLANTABLE OR ATTACHED CUSTODIAL OFFICER: No RADIOLOGY DEPARTMENT: CT; Exam(s) Completed: Chest and Neck PERIPHERAL IV DATA: Site assessment: Clean,Dry and Intact, Site disposition Discontinued SIGNED BY: RT Craig(R) October 26, 2023 10:07 AM documented in this encounterMiami Valley Hospital04-19-2024 History of Present illness Narrative* Helder [...] hydrocephalus. He saw Dr. Lara at the [facility]. Also pain behind left eye. [...] issues. 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 Helder Jack MD documented in this [facility] Work Phone: 1(495) 589-515204-19-2024 Instructions* Patient Instructions* Adriana Thomas RN - 10/05/2023 9:[address] Jack will present your case at [facility] Board next Sunday. Someone from the office will call you that day or about your plan. Please call us with any questions or concerns at [phone] opt. 5, opt. 2 For scheduling concerns please call [phone] option 1 documented in this encounterTr[facility] Work Phone: 1(850) 598-180202-28-2024 Evaluation note* Author Curtis Covarrubias [facility] 2023 5:19pmThe above note written by Sue Flood acting as human recorder, note dictated by Dr. Griselda Krause . [facility] Work Phone: 1(975) 535-150502-28-2024 Evaluation note* Author Curtis Covarrubias [facility] 2023 5:19pmThe above note written by Sue Flood acting as human recorder, note dictated by Dr. Griselda Krause . Author Shilpi Lantigua [facility] 2023 10:32amSooner if needed, the ER if concerns,The above note written by Shilpi Lantigua LPN acting as human recorder, note dictated by Dr. Griselda Krause [facility] Work Phone: 1([phone]) 782-778401-15-2024 Evaluation note* Encounter Date Diagnosis Assessment Notes [...] needed. Jun,hest congestion (ICD-10 - R09.89) In house covid, [...] to continue to follow with them asscheduled. [facility] Other 12-14-2023 Evaluation note* Encounter Date Diagnosis Assessment Notes Treatment Notes Treatment Clinical Notes May, PAD (peripheral artery disease) (ICD-10 - I73.9) Patient recently had angioplasty for occlusion of right iliac artery that was discovered by delivery nurse. He has been doing well since [...] work before I provide him that consent. [facility] Other 12-13-2023 Evaluation note* Encounter Date Diagnosis [...] I will see him in 3 months. [facility] Other 11-28-2023 Evaluation note* Encounter Date Diagnosis [...] in 3 months Apr,Lightheadedness (ICD-10 - R42) [facility] Other [id number] Procedure noteUniversity [facility] Center11-16-2023 Evaluation note* Encounter Date Diagnosis [...] questions were addressed and consent was obtained. [facility] Other 11-14-2023 Evaluation note* Encounter Date Diagnosis [...] M54.2) The patient is now following with [facility]. He states he has an upcoming cervical epidural scheduled. The patient remains out of work on group home disability , he voices interest in returning to work soon. Apr,AD (peripheral artery disease) (ICD-10 - I73.9) Arterial studies ordered by delivery nurse indicating peripheral artery disease. The patient does report lower extremity pain and heaviness and I recommend it would be beneficial to consult with a vascular specialist. The patient is in agreement, therefore a referral was initiated. A CTA has been ordered by neurologist , appointment [place] [facility] [place]. Apr,Hyperlipidemia (ICD-10 - [...] vocies understanding. We will continue to monitor. [facility] Other 10-26-2023 Evaluation note* Encounter Date Diagnosis Assessment Notes Treatment Notes Treatment Clinical Notes Mar, Claudication (ICD-10 - I73.9) [facility] Other 10-25-2023 Evaluation note* Encounter Date Diagnosis [...] in 4 weeks Mar,Lightheadedness (ICD-10 - R42) [facility] Other 10-24-2023 Evaluation note* Encounter Date Diagnosis Assessment Notes Treatment Notes Treatment Clinical Notes Mar, Elevated blood pressure reading (ICD-10 - R03.0) [facility] Other 09-28-2023 Evaluation note* Encounter Date Diagnosis [...] of infection. Feb,urning sensation (ICD-10 - R20.8) [facility] Other 09-21-2023 Evaluation note* Encounter Date Diagnosis [...] right index finger. We will continueto monitor. [facility] Other 07-13-2023 Hospital Discharge instructions Diet Plan/Instructions [...] * Discharge Physician: : Lima Joseph MD ([id number]) - Anesthesiology, Pain Management * Discharge Physician Phone: : [phone] [facility] [address], [place] [phone] Special Plan/Instructions for Discharge from 12/27/2022 10:26 AM: * Special Instructions : Spoke to patient Wound Care Instruction for Discharge from 12/27/2022 10:26 AM: * Special Instructions : Spoke to patient [employer] 06-20-2023 Evaluation note* Encounter Date Diagnosis Assessment [...] sent to the office to be completed. [facility] Other 05-12-2023 History of Present illness Narrative* [...] with PATIENT DISCHARGED TO: Ambulatory patient, left [place] department area. A Diagnostic radioactive procedure has taken place, with no further precautions necessary other than routine body substance precautions. More information regarding radiation safety can be found usingthis link: [email or web address] SIGNATURE: RT Craig(Neisha) PATIENT NAME: Shantel Melendez DATE: October 27, 2022 TIME: 11:55 AM PAGER/CONTACT #: documented in this encounterMiami Valley Hospital04-07-2023 History of Present illness Narrative* TABITHA [...] MR; Exam(s) Completed: Head: IAC/CPA SIGNATURE: RT Julio(Neisha) PATIENT NAME: Shantel Melendez DATE: September 22, 2022 TIME: 2:39 PM documented in this encounterMiami Valley Hospital04-05-2023 Miscellaneous Notes* Telephone Encounter - Akash [...] return call ? Yes documented in this encounterMiami Valley Hospital03-29-2023 Instructions* Patient Instructions* Kelly Perez PA-C [...] perform on same dariusz. documented in this encounterMiami Valley Hospital03-29-2023 Nurse Note* Antonia Tripathi MA - 09/13/2022 10:55 AM EDT Additional intake questions: Has the patient had fever, nausea, vomiting, diarrhea, constipation, fatigue for > 1 week? Yes, diarrhea ( 3 times in last 24 hours), fatigue, and Provider Notified Does the patient have a decreased appetite? No Does patient want to see a Folding Machine Operator? No (yes to any of [...] By: Antonia Tripathi MA documented in this encounterMiami Valley Hospital03-29-2023 History of Present illness Narrative* Kelly Perez PA-C - 09/13/2022 10:44 AM EDT This note was created using [employer]. Subjective Shantel Melendez is a 61 year [...] or pronator drift. Coordination: Romberg sign negative. Abivxj-Zmcb-Erkegs Test normal. Gait: Gait abnormal. Comments: Slightly [...] which included preparing to see the patient, kgmb-or-qxhe patient care, completing clinical documentation, obtaining and/or reviewing separately obtained history, performing a medically appropriate examination, counseling and educating the pat ient/family/caregiver, ordering medications, tests, or procedures, communicating with other HCPs (not separately reported), independently interpreting results (not separately reported), communicatingresults to the patient/family/caregiver, and care coordination (not separately reported). documented in this encounterMiami Valley Hospital03-16-2023 Evaluation note* Encounter Date Diagnosis Assessment [...] her mid twenties. He will see the ADULT LITERACY TEACHER at Dr. Cadena's office today, and will see the [facility] 09/13/22. I do feel pt needs his FMLA extended until 12/16/22. I encouraged him to continue to follow with these doctors, and we will continue to monitor. [facility] Other 02-14-2023 Evaluation note* Encounter Date Diagnosis [...] is off work until 09/16/22. 14 Jul, 2022Insomnia, unspecified type (ICD-10 - G47.00) Pt is to continue with the above medication and we will continue to monitor. 14 Jul, 2022Oral-mouth cancer (ICD-10 - C06.9) Jul,lioma of brain (ICD-10 - C71.9) Jul,Migraine (ICD-10 - G43.909) Jul,RSV (respiratory syncytial virus infection) (ICD-10 - B33.8) In house RSV is positive. I did prescribe the above medication and encouraged pt to increase fluid intake, throat lozenges or gargle with mouth wash as needed. Pt is to also take OTC pain medication and fever reducers as needed. [facility] Other 01-11-2023 Evaluation note* Encounter Date Diagnosis Assessment Notes Treatment Notes Treatment Clinical Notes Jun, Other complicated headache syndr ome (ICD-10 - G44.59) [facility] Other 12-09-2022 Evaluation note* Encounter Date Diagnosis [...] check on him again in 1 month. [facility] Other 10-30-2022 Hospital Discharge instructions Additional Instructions [...] week to see how you are doing. [facility] Work Phone: [phone]) 698-671210-10-2022 Miscellaneous Notes* Telephone Encounter - Racquel Cole MD - 03/27/2022 3:54 PM EDT Good with me * Telephone Encounter - Asya Reynolds RN - 03/27/2022 2:17 PM EDT Informed patient of your recommendations. He states that he is seeing neurology in [place] and they do not feel he needs [...] the weekend about an appointment with a [facility] neurosurgeon. He has not seen you since 10/2021. He states st that time you did not see the need for a neurosurgeon as his tumor wastoo small. Now he all of the sudden has an appointment with this F neurosurgeon and is confused. Can you review and advise as to this appointment with the neurosurgeon. Asya Reynolds RN documented in this encounterMiami Valley Hospital09-29-2022 Miscellaneous Notes* Telephone Encounter - Pamela Nascimento APRN.CNP - 03/16/2022 2:51 PM EDT Time Frame: Next available Provider: Intra-axial neurosurgeon & Neuro-Oncology (same day) Referring: Racquel Cole MD Please instruct patient to hand carry/ upload images prior to appt Dx: Low grade glioma Patient: Shantel Melendez Address: Shantel Melendez [id number] [place] [address] Per Triage: hSantel Melendez is a 61 year old male that requests evaluation of previously diagnosed possible low grade glioma. Patient expectations: Second opinion Tumor Specifics: Location: brain Previous Evaluations: MRI w/wo contrast (10/05/21): 10/05/2021 [place] Brain [facility] [place] Impression: 1. There is [...] [facility] Epic access? Yes documented in this encounterMiami Valley Hospital09-29-2022 Evaluation note* Encounter Date Diagnosis Assessment [...] see if this gives him some relief [facility] Other 08-15-2022 Evaluation note* Encounter Date Diagnosis [...] - G93.9) Patient had another MRI at [facility]. We are awaiting for the [...] did hold off on any pain medications. [facility] Other 07-11-2022 Evaluation note* Encounter Date Diagnosis [...] blood pressure was elevated upon check in. [employer] Other 06-20-2022 Evaluation note* Encounter Date Diagnosis [...] rule out other causes of his symptoms. [employer] [facility] Other 05-24-2022 Evaluation note* Encounter Date Diagnosis [...] will complete the necessary medical disability forms. [employer] Other 05-17-2022 Evaluation note* Encounter Date Diagnosis Assessment Notes Treatment Notes Treatment Clinical Notes October, Glioma of brain (ICD-10 - C71.9) Patient has consulted neurosurgeon, Dr. Narayan, and he is now referring on to Dr. [facility]ig[facility]. Reviewed consult note [...] this medication. Will continue to follow up [employer] [facility] Other 05-12-2022 History of Present illness Narrative* Racquel Cole MD - 10/27/2021 5:05 PM EDT Images from the original note were not included. NAME: Shantel Melendez CLINIC NO.: [id number] DATE OF SERVICE: October 27, 2021 Some elements in this clinic note that are critical to medical decision making have been carefully reviewed and included from a prior clinic note dated: October 13, 2021 Referring Provider: Griselda Krause, Additional Clinicians involved in Shantelkal Melendez's care: Dr Kimberly Nichole ENT, Dr. Ibarra NM surgery [facility] AMBULATORY TELEPHONE VISIT Shantelkal Melendez [...] 1.8 mm of invasive disease (Stage I, [id number], HPV+ oropharyngeal SCC).resected T1 N1 base of [...] 01/30/19 He had a neck dissection at [facility] HPI: Updated Visit, October 27, [...] COMP METABOLIC PANEL Racquel Cole MD, CPE [facility] [place], [place] CC: Griselda Krause, DO [address] [phone] [address] [facility]. Nichole ENT Dr. Ibarra NM surgery [facility]. documented in this encounterMiami Valley Hospital05-09-2022 Evaluation note* Encounter Date Diagnosis Assessment [...] him on to see Dr. Jonny Vigil. [facility] [employer] Other 05-04-2022 Miscellaneous Notes* Telephone Encounter - Haily Med Issa - 10/19/2021 12:56 PM EDT Called [facility] Neuro Office spoke with Leslee. She states they have received patient records/referral and have patient scheduled to see Dr Narayan on 10/24. Haily Jovel Pss * Telephone Encounter - Asya Gramajo [facility] - 10/18/2021 10:34 AM EDT Records faxed. * Telephone Encounter - Haily Jovel [facility] - 10/13/2021 12:24 PM EDT Noelle: Information ready for you. Haily Jovel Pss * Telephone Encounter - Antonia Mcguire - 10/13/2021 10:33 AM EDT Referral to neurosurgery - Dr. Narayan or [facility] Noelle/Layo: Can you please refer patient and follow up? Thanks! Antonia Mcguire documented in this encounterMiami Valley Hospital04-28-2022 History of Present illness Narrative* Racquel Cole MD - 10/13/2021 10:19 AM EDT Images from the original note were not included. NAME: Shantel Melendez [facility] NO.: [id number] DATE OF SERVICE: October 13, 2021 Some elements in this clinic note that are critical to medical decision making have been carefully reviewed and included from a prior clinic note dated:October 14, 2020 Referring Provider: Griselda Krause, DO Additional Clinicians involved in Shantel Melendez's care: Dr Kimberly Nichole ENT, Dr. Ibarra NM surgery [facility] CC: Head and neck cancer [...] 1.8 mm of invasive disease (Stage I, [id number], HPV+ oropharyngeal SCC).resected T1 N1 base of [...] 01/30/19 He had a neck dissection at [facility] HPI: Updated Visit, October 13, [...] 2020: Doing well, still smokes, works at [employer] in [place]. Reviewed scans and there is no evidence [...] adenopathy is identified. 4. 10/05/2021 [place] [facility] [place] Impression: 1. There is [...] and neck (HCC) Racquel Cole MD, CPE [place], [place] CC: Griselda Krause, DO [address] [phone] [address] Harris [facility] ENT. Dr. Nichole ENT Dr. Ibarra NM surgery [facility]. documented in this encounterMiami Valley Hospital04-21-2022 Miscellaneous Notes* Telephone Encounter - Racquel [...] steps. Asya Kumar RN documented in this encounterMiami Valley Hospital04-21-2022 History of Present illness Narrative* Marilyn [...] 06, 2021 8:07 AM documented in this encounterMiami Valley Hospital04-04-2022 Evaluation note* Encounter Date Diagnosis Assessment [...] to continue with monitoring diet and exercise. [employer] Other 03-28-2022 Evaluation note* Encounter Date Diagnosis Assessment Notes Treatment Notes Treatment Clinical Notes Aug, Anxiety and depression (ICD-10 - F41.8) [employer] [facility] Other 01-13-2022 Evaluation note* Encounter Date Diagnosis Assessment Notes Treatment Notes Treatment Clinical Notes Jun, Sinusitis (ICD-10 - J32.9) I did prescribe the above medications and work note provided. [employer] [facility] Other 01-12-2022 Evaluation note* Encounter Date Diagnosis Assessment Notes Treatment Notes Treatment Clinical Notes Jun, Sinus pressure (ICD-10 - J34.89) Patient advised of negative results. Encouraged him to call if symtpoms persist or worsen, he verbalized understanding. [employer] [facility] Other 11-02-2021 Evaluation note* Encounter Date Diagnosis Assessment Notes Treatment Notes Treatment Clinical Notes Apr, Sinus congestion (ICD-10 - R09.8 1) [employer] [facility] Other 10-28-2021 Evaluation note* Encounter Date Diagnosis [...] Encouraged patient to continue with their efforts. [employer] [facility] Other 12-01-2016 History general Narrative - Reported* Type Description Date Medical History anxiety and depression Medical Fvlwjhy60/2016 EGD and colonoscopyMedical HistoryLabs 10/26/16Medical HistoryPSA (0.510) 10/26/16Medical HistoryNo Stress Test as of 11/09/16Medical Plpglrp45/28/19 PSA (0.6)Medical Eavrlvf30/2021 Stress test ,echocardiogram, 24 hr. holterMedical Vcrckvj85/29/21 PSA ( 0.4)Medical Jpphzfs23/2021 Covid + Surgical Historyskin cancer on noseSurgical HistoryEGD and Aakatgcodfa26/2016 Surgical HistorytonsillectomySurgical HistoryHead and neck HPV /2019 Hospitalization Historysee above [employer] Other 12-01-2016 History general Narrative - Reported* Type Description Date Medical History anxiety and depression Medical Oficlve63/2016 EGD and colonoscopyMedical HistoryLabs 10/26/16Medical HistoryPSA (0.510) 10/26/16Medical HistoryNo Stress Test as of 11/09/16Medical Veygkep83/28/19 PSA (0.6)Medical Ijxfiro34/2021 Stress test ,echocardiogram, 24 hr. holterMedical Opjgvvv75/29/21 PSA ( 0.4)Medical Butmeay65/2021 Covid + Surgical Historyskin cancer on noseSurgical HistoryEGD and Iekkofqhuvy85/2016 Surgical HistorytonsillectomySurgical HistoryHead and neck HPV acpfbhd25/2019 [facility] History see above [employer] [facility] Other 12-01-2016 History general Narrative - Reported* Type Description Date Medical History anxiety and depression Medical Bukrswt56/2016 EGD and colonoscopyMedical HistoryLabs 10/26/16Medical HistoryPSA (0.510) 10/26/16Medical HistoryNo Stress Test as of 11/09/16Medical Lrqxwvv88/28/19 PSA (0.6)Medical Ugnumgs36/2021 Stress test ,echocardiogram, 24 hr. holterMedical Vizeqiq41/29/21 PSA ( 0.4)Medical Hpqjufl83/2021 Covid + Medical Ddlgjnd7605/26/2022 Brain MRISurgical Historyskin cancer on noseSurgical HistoryEGD and Noflpxdnedm53/2016Surgical HistorytonsillectomySurgical History Head and neck HPV jjsojhr44/2019Surgical HistorySpinal [facility] 11/07/2021Hospitalization Historysee above [facility] Other 12-01-2016 History general Narrative - Reported* Type Description Date Medical History anxiety and depression Medical Rvtydyn94/2016 EGD and colonoscopyMedical HistoryLabs 10/26/16Medical HistoryPSA (0.510) 10/26/16Medical HistoryNo Stress Test as of 11/09/16Medical Tekeswt29/28/19 PSA (0.6)Medical Vulmwqn65/2021 Stress test ,echocardiogram, 24 hr. holterMedical Kkfzxsw45/29/21 PSA ( 0.4)Medical Yzfpssy27/2021 Covid + Medical Soynxko0205/26/2022 Brain MRISurgical Historyskin cancer on nose (squamous cell)Surgical HistoryEGD and Etwhwztehez46/2016Surgical Historytonsillectomy Surgical HistoryHead and neck surgery for oral cancer/lymph node dissection 01/2019S[facility] HistorySp[facility]21Hospitalization Historysee above [employer] Other 12-01-2016 History general Narrative - Reported* Type Description Date Medical History anxiety and depression Medical Eqtqmbd33/2016 EGD and colonoscopyMedical HistoryLabs 10/26/16Medical HistoryPSA (0.510) 10/26/16Medical HistoryNo Stress Test as of 11/09/16Medical Tnlbgjy45/28/19 PSA (0.6)Medical Andahbl46/2021 Stress test ,echocardiogram, 24 hr. holterMedical Xevsxmo68/29/21 PSA ( 0.4)Medical Gdhwnjp23/2021 Covid + Medical Bgdywli0505/26/2022 Brain MRISurgical Historyskin cancer on nose (squamous cell)Surgical HistoryEGD and Cewidpmqbei81/2016Surgical Historytonsillectomy Surgical HistoryHead and neck surgery for oral cancer/lymph node dissection 01/2019[facility]21urgical HistoryLP [facility]08/2022Hospitalization Historysee above [employer] Other 12-01-2016 History general Narrative - Reported* Type Description Date Medical History anxiety and depression Medical Bzdtymk46/2016 EGD and colonoscopyMedical HistoryLabs 10/26/16Medical HistoryPSA (0.510) 10/26/16Medical HistoryNo Stress Test as of 11/09/16Medical Lkrojbz80/28/19 PSA (0.6)Medical Zyigzbp18/2021 Stress test ,echocardiogram, 24 hr. holterMedical Vcgdxtv20/29/21 PSA ( 0.4)Medical Ysrtpxk63/2021 Covid + Medical Nnrpsju3005/26/2022 Brain MRIMedical Ogmvsqq80/2023 PADSurgical History skin cancer on nose (squamous cell)Surgical HistoryEGD and Vdwyohxgcgt95/2016 Surgical HistorytonsillectomySurgical HistoryHead and neck surgery for oral cancer/lymph node /2019[facility]/2021urgical HistoryLP [facility]08/2022Hospitalization Historysee above [employer] Other [id number] History general Narrative - Reported* Type Description Date Medical History anxiety and depression Medical Bhvevhw31/2016 EGD and colonoscopyMedical HistoryLabs 10/26/16Medical HistoryPSA (0.510) 10/26/16Medical HistoryNo Stress Test as of 11/09/16Medical Enwmtzp39/28/19 PSA (0.6)Medical Odkilyg33/2021 Stress test ,echocardiogram, 24 hr. holterMedical Dbuzndc59/29/21 PSA ( 0.4)Medical Gbmrrjk68/2021 Covid + Medical Qpnzqzt0205/26/2022 Brain MRIMedical Rwzfphk30/2023 PADSurgical History skin cancer on nose (squamous cell)Surgical HistoryEGD and Uhewxecpvbn78/2016 Surgical HistorytonsillectomySurgical HistoryHead and neck surgery for oral cancer/lymph node moxlosadjs29/2019Surgical [facility]/07/2021urgical HistoryLP at [facility]08/2022Surgical History angioplasty right iliac gcftme85/2023Hospitalization Historysee above [employer] Other 05-19-2009 History of Present illness Narrative* [...] He saw Dr. Ba a neurologist in [facility]. * He describes his vision as seeing 1-1/2 . He describes this does not seem quite to but finding a time lab between moving his eyes and having the visual change. [facility] Work Phone: chief complaint+Reason for visit Narrative* Chief Complaint 2 month 2 month f/uReason for VisitCervical spondylosis History of COVID-19 Nicotine dependence with current use SCC (squamous cell carcinoma) Nicotine dependence with current use Osteoarthritis cervical spine [facility] Work Phone: Clinical Notes [facility] Evaluation + Plan note [facility] [place] Evaluation noteNo Assessments Information Available [facility] Diagnosis Glioma of brain (HCC)- Primary Malignant neoplasm of brain, unspecified site Lung nodules Other nonspecific abnormal finding of lung field 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) Malignant neoplasm of head, face, and neck [facility] Diagnosis 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 Malignant neoplasm of head, face, and neck Lung nodules Other nonspecific abnormal finding of lung field Malignant neoplasm of head, face and neck (HCC) Malignant neoplasm of head, face, and neck [facility] noteNo InformationNosaint j[facility] [employer] Other Evaluation noteNo assessment information available [facility] Work Phone: Evaluation note* Diagnosis Onset Date Resolution Status Migraine acute [facility] Work Phone: Evaluation note* Diagnosis NPH (normal pressure hydrocephalus) (HCC)- Primary Idiopathic normal pressure hydrocephalus (INPH) [facility] Diagnosis 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HCC)- Primary NPH (normal pressure hydrocephalus) (HCC) Idiopathic normal pressure hydrocephalus (INPH) [facility]* Diagnosis 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HCC) NPH (normal pressure hydrocephalus) (HCC) Idiopathic normal pressure hydrocephalus (INPH) [facility]* Diagnosis Onset Date Resolution Status Anxiety and depression acuteEssential hypertensionacuteHyperlipidemiaacuteOsteoarthritis cervical spine acutePAD (peripheral artery disease)acute [facility] Work Phone: Evaluation note* Diagnosis 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 Griselda Krause. 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) Malignant neoplasm of head, face, and neck [facility] Diagnosis Malignant neoplasm of head, face and neck (HCC) Malignant neoplasm of head, face, and neck Lung nodules Other nonspecific abnormal finding of lung field 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) Malignant neoplasm of head, face, and neck Localized swelling, mass or lump of neck Swelling, mass, or lump in head and neck [facility] Diagnosis Cervical radiculopathy- Primary Brachial neuritis or radiculitis nos Cervical radiculopathy Brachial neuritis or radiculitis nos Senile osteoporosis Senile osteoporosis documented in this encounter [facility] Work Phone: Evaluation note* Diagnosis Cervical radiculopathy- Primary Brachial neuritis or radiculitis nos Status post cervical spinal fusion Arthrodesis status Acute postoperative pain Other acute postoperative pain Muscle spasms of neck documented in this encounter [facility] Work Phone: Evaluation note* Diagnosis Other nerve root and plexus disorders- Primary Cervical paraspinal muscle spasm Spasm of muscle Cervical stenosis of spinal canal Spinal stenosis in cervical region [facility] Diagnosis Cervical radiculopathy- Primary Brachial neuritis or radiculitis nos Occipital neuralgia of left side Balance problem Abnormality of gait documented in this encounter [facility] Work Phone: Evaluation note* 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 [facility] Work Phone: Evaluation note* 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 [facility] Work Phone: [phone] note* Diagnosis Cervical radiculopathy- Primary Brachial neuritis or radiculitis nos Senile osteoporosis documented in this encounter [facility] Work Phone: Evaluation note* Diagnosis Cervical radiculopathy Brachial neuritis or radiculitis nos Senile osteoporosis Cervical radiculopathy Brachial neuritis or radiculitis nos Senile osteoporosis Cervical radiculopathy Brachial neuritis or radiculitis nos Senile osteoporosis documented in this encounter [facility] Work Phone: [phone] note* Diagnosis Cervical radiculopathy Brachial neuritis or radiculitis nos Senile osteoporosis Cervical radiculopathy Brachial neuritis or radiculitis nos Cervical radiculopathy Brachial neuritis or radiculitis nos Senile osteoporosis documented in this encounter [facility] Work Phone: Evaluation note* Diagnosis Cervical radiculopathy Brachial neuritis or radiculitis nos Senile osteoporosis Cervical radiculopathy Brachial neuritis or radiculitis nos Cervical radiculopathy Brachial neuritis or radiculitis nos Senile osteoporosis documented in this encounter [facility] Work Phone: [phone] note* Diagnosis Status post cervical spinal fusion- Primary Arthrodesis status documented in this encounter [facility] Work Phone: Evaluation note* Diagnosis Nerve root and plexus disorder, unspecified- Primary [facility]* Diagnosis Nerve root and plexus disorder, unspecified- Primary documented in this encounter [facility]* Diagnosis Nerve root and plexus disorder, unspecified- Primary documented in this encounter [facility]Evaluation note* Diagnosis Status post cervical spinal fusion- Primary Arthrodesis status documented in this encounter [facility] Work Phone: Evaluation note* Diagnosis 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 Malignant neoplasm of head, face, and neck [facility]* Diagnosis 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) Malignant neoplasm of head, face, and neck [facility]* Diagnosis Nerve root and plexus disorder, unspecified- Primary Acute pain of left shoulder documented in this encounter [facility]Evaluation note* Diagnosis Melanocytic nevus of trunk- Primary Benign neoplasm of skin of trunk, except scrotum Seborrheic keratosis Inflamed seborrheic keratosis Actinic keratosis Capillary angioma Nevus, non-neoplastic History of SCC (squamous cell carcinoma) of skin Personal history of other malignant neoplasm of skin documented in this encounter [facility] HealthcareEvaluation note* Diagnosis Nerve root and plexus disorder, unspecified- Primary Acute pain of left shoulder documented in this encounter [facility] HealthcareEvaluation note* Diagnosis Acute pain of right shoulder- Primary Nerve root and plexus disorder, unspecified Acute pain of left shoulder documented in this encounter [facility] HealthcareEvaluation note* Diagnosis Other nerve root and plexus disorders- Primary Acute pain of left shoulder Acute pain of right shoulder [facility] Additional Instructions Obtain Elsy pot and perform nasal irrigations twice a day[facility] Work Phone: Hospital Discharge instructions Additional Instructions Please return to emergency department for any new or worrisome symptoms including any chest pain, shortness of breath, vomiting, fever. Take all antibiotics even if you start feeling better.[facility] Work Phone: Hospital Discharge instructions Additional Instructions Push fluids Zofran for nausea vomiting Follow-up with the GI specialist as discussed for possible colonoscopy Return here if any problems persist or worsen If you are able to collect a urine specimen take it to the lab.[facility] Work Phone: Revnfz for referral (narrative)* Diagnostic Procedure Only (Routine) - ClosedSpecialtyDiagnoses / ProceduresReferred By Contact Referred To ContactCT IMAGING Diagnoses Malignant neoplasm of head, face and neck (HCC) Lung nodules 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) Localized swelling, mass or lump of neck Procedures CT CHEST W IVCON CAT SCAN OF CHEST CONTRAST Racquel Cole MD [address] [place] [address] [place] [address] Referral IDStatusReasonStart DateExpiration DateVisits RequestedVisits [id number] Auto-Generated Referral * Diagnostic Procedure Only (Routine) - ClosedSpecialtyDiagnoses / Procedures Referred By ContactReferred To ContactCT IMAGING Diagnoses Malignant neoplasm of head, face and neck (HCC) Lung nodules 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) Localized swelling, mass or lump of neck Procedures CT NECK SOFT TISSUE W IVCON CONTRAST CAT OF NECK TISSUE Racquel Cole MD [address] [place] [address] [place] [address] Referral IDStatusReasonStart DateExpiration DateVisits RequestedVisits [id number] Auto-Generated Referral [facility] (narrative)No reason for referral information availableBarber[facility] Work Phone: Revhhr for visit Narrative* Auth/CertSpecialty Diagnoses / ProceduresReferred By ContactReferred To Contact Diagnoses Cervical radiculopathy Senile osteoporosis Cervical radiculopathy [M54.12] Senile osteoporosis [M81.0] Procedures WV ARTHRD ANT INTERBODY DECOMPRESS CERVICAL BELW C2 WV ARTHRD ANT INTERBODY DECOMPRESS CERVICAL BELW C2 WV ARTHRD ANT INTERDY CERVCL BELW C2 EA ADDL NTRSPC WV ALLOGRAFT FOR SPINE SURGERY ONLY STRUCTURAL WV MICROSURG TQS REQ USE OPERATING MICROSCOPE Fusion Spine Anterior Cervical and Discectomy C5-6, C6-7 Doretha Harris MD [address] [facility], [address] [place] [address] Phone: tel: fax: [facility] [place] [address] [place] [address] fax: Referral IDStatusReasonStart DateExpiration DateVisits RequestedVisits [id number] [facility] Work Phone: Reason for visit Narrative* Injection (Routine) - ClosedSpecialtyDiagnoses / ProceduresReferred By ContactReferred To Contact Neurology Diagnoses Acute pain of left shoulder Procedures [place] OFFICE/OUTPATIENT [facility] 60 MINUTES Oziel Cadena MD [address] [facility] [address] [place] [address] Phone: tel: fax: Oziel Cadena MD [address] [place] [address] Phone: tel: fax: Referral IDStatusReasonStart DateExpiration DateVisits RequestedVisits [id number] Perform Procedure / [facility] Summary Purpose [...] July 07, 2023 9:27am TypeDate RecordedPatient RepresentativeExplanationLiving Will10/05/2023 9:39 AM TypeDate RecordedPatient RepresentativeExplanationLiving Will10/05/2023 9:39 AM Date ActivatedDate VsykrblqzyaBfbghgwd51/23/2024 6:57 PMQuestionAnswerComments Plan of Care:* Code Status Discussion Completed Decision Maker:* Patient Date ActivatedDate BqttnjejbujGrdpsfra42/23/2024 11:50 AM04/09/2024 6:57 PM QuestionAnswerCommentsPlan of Care:* Code Status Discussion Completed Decision Maker:* Patient Date ActivatedDate LnchhziirvvXukwwojt51/23/2024 6:57 PMQuestionAnswerComments Plan of Care:* Code Status Discussion Completed Decision Maker:* Patient Date ActivatedDate JjwqglksstfJtzqgemi94/23/2024 11:50 AM04/09/2024 6:57 PM QuestionAnswerCommentsPlan of Care:* [...] 01 10:17am Nicotine dependence with current use Mar roderick 2023 10:17am Osteoarthritis cervical spine April [...] 2025 10:28am Nicotine dependence with current use [facility]2024 10:28am PAD (peripheral artery disease) [facility] 2024 10:28am Screening for prostate cancer February [...] 2025 10:28am Nicotine dependence with current use [facility]2024 10:28am PAD (peripheral artery disease) [facility] 2024 10:28am S/P cervical discectomy February 19, [...] 2024 10:28am S/P cervical discectomy February 19 10:28am Screening for prostate cancer February 19, 2025 10:28am Burning sensation April 01, 2025 1 :42pm Hypertension April 01, 2025 1 :42pm Chief Complaint Admit Date medicare wellness February 19, 2025 10:28am I73.9 February 26, 2025 1:18pm 1 month f/u April 01, 2025 1 :42pm 6 month f/u April 27, 2025 1:56pm Reason for Visit Admit Date Anxiety and depression February 19 10:28am Burning sensation February 19, 2025 10:28am Colon polyps February 19, 2025 10:28am Hyperlipidemia February 19, 2025 10:28am Medicare annual wellness visit, initial February 19, 2025 10:28am Nicotine dependence with current use [facility] 2024 10:28am PAD (peripheral artery disease) [facility] 2024 10:28am S/P cervical discectomy February 19 10:28am Screening for prostate cancer February 19, 2025 10:28am Burning sensation April 01, 2025 1 :42pm Hypertension April 01, 2025 1 :42pm Cardiac arrhythmia April 27, 2025 1:56pm Essential hypertension April 27 1:56pm Hyperlipidemia April 27, 2025 1:56pm Glioma of brain April 27, 2025 1:56pm PAD (peripheral artery disease) April 27, 2025 1:56pm Assessments No Assessments Information Available Reason for Referral SpecialtyDiagnoses / ProceduresReferred By ContactReferred To Contact Neurosurgery Diagnoses Glioma of brain (HCC) Procedures CONSULT TO NEUROSURGERY OFFICE/OUTPATIENT [facility] 60-74 MINUTES Racquel Cole MD [address] [place] [address] [place] [address] Referral IDStatusReasonStart DateExpiration DateVisits RequestedVisits [id number] PCP Requested Referral [id number] / ProceduresReferred By ContactReferred To ContactCT IMAGING Diagnoses Lung nodules Procedures CT CHEST W IVCON DIAGNOSTIC COMPUTED TOMOGRAPHY THORAX W/CONTRAST Racquel Cole MD [address] [place] [address] [place] [address] Ct Imaging Referral IDStatusReasonStart DateExpiration DateVisits RequestedVisits [id number] Review Auto-Generated Referral [id number] / ProceduresReferred By ContactReferred To ContactCT IMAGING Diagnoses Malignant neoplasm of head, face and neck (HCC) Procedures CT NECK SOFT TISSUE W IVCON CT SOFT TISSUE NECK W/CONTRAST MATERIAL Racquel Cole MD [address] [place] [address] [place] [address] Ct Imaging Referral IDStatusReasonStart DateExpiration DateVisits RequestedVisits [id number] Review Auto-Generated Referral Reason *FU 10/31 Evaluate and Treat Brainstem Lesion 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) Referral Organization [facility] urosurgery Referring Provider First Name Sheng Referring Provider Last Name Wyatt Referring Provider Specialty Neurosurger y Referred Organization [facility] Referred Provider Jonny Vigil [place] Address [address] [place],[address] Referred Provider Specialty Neurological Surgery Referral Priority Routine General Notes Linnea Alvarado M 022 02:09:54 PM >Received and fax referral today Reason consult and treat (p t is willing to see him in [place], if not then will see at [facility]) 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) Diagnosis 2 Cervical pain (neck) (M54.2) Diagnosis 3 Pressure in head (R5 1.9) Referral Organization [facility] Referring Provider First Name Griselda Referring Provider Last Name Darling Referring Provider Specialty Family Prac henny Referred Organization [facility] Referred Provider Oziel Cadena Referred Address [address] [place],[address] Referral Priority Routine SpecialtyDiagnoses / ProceduresReferred By ContactReferred To ContactMR IMAGING Diagnoses 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HCC) Procedures MRI BRAIN WO/W IVCON MRI BRAIN BRAIN STEM W/O W/CONTRAST MATERIAL Kelly Perez PA-C [address] [place] [address] Mr Imaging Referral IDStatusReasonStart DateExpiration DateVisits RequestedVisits [id number] Auto-Generated Referral /[id number] IDStatusReasonStart DateExpiration DateVisits RequestedVisits [id number] Auto-Generated Referral / Reason pt requesting n [...] [facility] Referred Provider Manuela Ballesteros Referred Address ,[place], [place],[address] Referred Provider Specialty Ear, Nose an d Throat Referral Priority Routine General Notes ClarenceYessica roman 12:40:36 PM >received today, pt has medicaid insurance, will send to Dr. Ballesteros, attachments made, waiting for notes to be locked Reason consult and treat Diagnosis 1 PAD (peripheral arnie ry disease) (I73.9) Referral Organization [facility] Referring Provider First Name Griselda Referring Provider Last Name Darling Referring Provider Specialty Family Prac henny Referred Organization [facility] Referred Provider Filipe Hess Referred Address [address] [address],[place], [place],[address] Referred Provider Specialty Vascular Abdirahman yvon Referral Priority Routine General Notes Linnea Alvarado 023 11:58:24 AM >Received today and sent P2P SpecialtyDiagnoses / ProceduresReferred By ContactReferred To ContactCT IMAGING Diagnoses Primary squamous cell carcinoma of head and neck (HCC) Procedures CT CHEST W IVCON DIAGNOSTIC COMPUTED TOMOGRAPHY THORAX W/CONTRAST Racquel Cole MD [address] [place] [address] [place] [address] [place] [address] Referral IDStatusReasonStart DateExpiration DateVisits RequestedVisits [id number] Auto-Generated Referral [id number] / ProceduresReferred By ContactReferred To ContactCT IMAGING Diagnoses 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) Procedures CT NECK SOFT TISSUE W IVCON CT SOFT TISSUE NECK W/CONTRAST MATERIAL Racquel Cole MD [address] [place] [address] [address] [place] [id number] [facility] [place] [address] Referral IDStatusReasonStart DateExpiration DateVisits RequestedVisits [id number] Auto-Generated Referral 1Referral IDStatusReasonStart DateExpiration DateVisits RequestedVisits [id number] Auto-Generated Referral 1Referral IDStatusReasonStart DateExpiration DateVisits RequestedVisits [id number] Auto-Generated Referral [id number] / ProceduresReferred By ContactReferred To ContactCT IMAGING Diagnoses Lung nodules Procedures CT CHEST W IVCON DIAGNOSTIC COMPUTED TOMOGRAPHY THORAX W/CONTRAST Racquel Cole MD [address] [place] [address] [place] [address] [place] [address] Referral IDStatusReasonStart DateExpiration DateVisits RequestedVisits [id number] Auto-Generated Referral /[id number] / ProceduresReferred By ContactReferred To ContactCT IMAGING Diagnoses Malignant neoplasm of head, face and neck (HCC) Procedures CT NECK SOFT TISSUE W IVCON CT SOFT TISSUE NECK W/CONTRAST MATERIAL Racquel Cole MD [address] [place] [address] Ct Imaging [facility] Referral IDStatusReasonStart DateExpiration DateVisits RequestedVisits [id number] Auto-Generated Referral /[id number] / ProceduresReferred By ContactReferred To ContactRadiology 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 w [place] [address] [place] [id number] Referral IDStatusReasonStart DateExpiration DateVisits RequestedVisits [id number] Review Perform Procedure /[id number] / ProceduresReferred By ContactReferred To ContactRadiology 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 tumor perfusion protocol w and wo IV contrast Shimon Heaton PA-C [address] [place] [address] Referral IDStatusReasonStart DateExpiration DateVisits RequestedVisits [id number] Perform Procedure /[id number] / ProceduresReferred By ContactReferred To ContactRadiology Diagnoses Cervical radiculopathy Procedures XR cervical spine complete 6+ views Doretha Harris MD [address] [facility], [address] [address] Referral IDStatusReasonStbingham DateExpiration DateVisits RequestedVisits [id number] Perform Procedure /[id number] / ProceduresReferred By ContactReferred To ContactRadiology Diagnoses Senile osteoporosis Procedures XR DEXA bone density axial skeleton w VFA Doretha Harris MD [address] [facility], [address] [address] Referral IDStatusReasonStart DateExpiration DateVisits RequestedVisits [id number] Review Perform Procedure [id number] / ProceduresReferred By ContactReferred To Contact Diagnoses Cervical radiculopathy Senile osteoporosis Procedures ECG 12 lead Doretha Harris MD [address] [facility], [place] [phone] Referral IDStatusReasonStart DateExpiration DateVisits RequestedVisits [id number]/24/20247/24/[id number] / Procedures Referred By ContactReferred To ContactRadiology Diagnoses Cervical radiculopathy Procedures XR DEXA bone density Doretha Harris MD [address] [facility], [place] [phone] Referral IDStatusReasonStart DateExpiration DateVisits RequestedVisits [id number] Perform Procedure Chief Complaint Patient referred by [...] section and content) DATE CREATED AUTHOR 08/01/2019 [facility] DATE CREATED AUTHOR AUTHOR'S ORGANIZ ATION 11/05/2021 [employer] DATE CREATED AUTHOR AUTHOR'S ORGANIZ ATION 01/19/2022 [facility] 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 DATE CREATED AUTHOR AUTHOR'S ORGANIZ ATION 10/02/2022 [facility] DATE CREATED AUTHOR AUTHOR'S ORGANIZ ATION 12/25/2022 [facility] DATE CREATED AUTHOR AUTHOR'S ORGANIZ ATION 08/03/2023 [facility] DATE CREATED AUTHOR AUTHOR'S ORGANIZ ATION 02/13/2024 [facility] DATE CREATED AUTHOR AUTHOR'S ORGANIZ ATION 10/27/2024 [facility] DATE CREATED AUTHOR AUTHOR'S ORGANIZ ATION 11/13/2024 [facility] DATE CREATED AUTHOR AUTHOR'S ORGANIZ ATION 01/01/2025 [facility] DATE CREATED AUTHOR AUTHOR'S ORGANIZ ATION 01/03/2025 [facility] DATE CREATED AUTHOR AUTHOR'S ORGANIZ ATION 03/21/2025 [facility] DATE CREATED AUTHOR AUTHOR'S ORGANIZ ATION 03/23/2025 [facility] DATE CREATED AUTHOR AUTHOR'S ORGANIZ ATION 04/03/2025 [facility] DATE CREATED AUTHOR AUTHOR'S ORGANIZ ATION 04/30/2025 [facility] Source Comments (unrecognize d section and content) In the event this informatio n is protected by the Federal Confidentiality of Alcohol and Drug Abuse Patient Records regulations: The Federal rules restrict any use of the information to criminally investigate or prosecute any alcohol or drug abuse patient.[facility] [facility] HospitalIn the event this information is protected by the Federal Confidentiality of Alcohol and Drug Abuse Patient Records regulations: The Federal rules restrict any use of the information to criminally investigate or prosecute any alcohol or drug abuse patient.[place] [facility] HospitalIn the event this information is protected by the Federal Confidentiality of Alcohol and Drug Abuse Patient Records regulations: The Federal rules restrict any use of the information to criminally investigate or prosecute any alcohol or drug abuse patient.[place] [facility] HospitalIn the event this information is protected by the Federal Confidentiality of Alcohol and Drug Abuse Patient Records regulations: The Federal rules restrict any use of the information to criminally investigate or prosecute any alcohol or drug abuse patient.[facility] [facility] HospitalIn the event this information is protected by the Federal Confidentiality of Alcohol and Drug Abuse Patient Records regulations: The Federal rules restrict any use of the information to criminally investigate or prosecute any alcohol or drug abuse patient.[place] [facility] HospitalIn the event this information is protected by the Federal Confidentiality of Alcohol and Drug Abuse Patient Records regulations: The Federal rules restrict any use of the information to criminally investigate or prosecute any alcohol or drug abuse patient.[place] [facility] HospitalIn the event this information is protected by the Federal Confidentiality of Alcohol and Drug Abuse Patient Records regulations: The Federal rules restrict any use of the information to criminally investigate or prosecute any alcohol or drug abuse patient.[facility] [facility] HospitalIn the event this information is protected by the Federal Confidentiality of Alcohol and Drug Abuse Patient Records regulations: The Federal rules restrict any use of the information to criminally investigate or prosecute any alcohol or drug abuse patient.[place] [facility] HospitalIn the event this information is protected by the Federal Confidentiality of Alcohol and Drug Abuse Patient Records regulations: The Federal rules restrict any use of the information to criminally investigate or prosecute any alcohol or drug abuse patient.[place] [facility] HospitalIn the event this information is protected by the Federal Confidentiality of Alcohol and Drug Abuse Patient Records regulations: The Federal rules restrict any use of the information to criminally investigate or prosecute any alcohol or drug abuse patient.[place] [facility] HospitalIn the event this information is protected by the Federal Confidentiality of Alcohol and Drug Abuse Patient Records regulations: The Federal rules restrict any use of the information to criminally investigate or prosecute any alcohol or drug abuse patient.[facility] [facility] HospitalIn the event this information is protected by the Federal Confidentiality of Alcohol and Drug Abuse Patient Records regulations: The Federal rules restrict any use of the information to criminally investigate or prosecute any alcohol or drug abuse patient.[facility] [facility] HospitalIn the event this information is protected by the Federal Confidentiality of Alcohol and Drug Abuse Patient Records regulations: The Federal rules restrict any use of the information to criminally investigate or prosecute any alcohol or drug abuse patient.[place] [facility] HospitalIn the event this information is protected by the Federal Confidentiality of Alcohol and Drug Abuse Patient Records regulations: The Federal rules restrict any use of the information to criminally investigate or prosecute any alcohol or drug abuse patient.[place] [facility] HospitalIn the event this information is protected by the Federal Confidentiality of Alcohol and Drug Abuse Patient Records regulations: The Federal rules restrict any use of the information to criminally investigate or prosecute any alcohol or drug abuse patient.[facility] Reason for Visit (unrecogniz ed section and content) ReasonCommentsResultsReasonCommentsHead and Neck CancerSpecialtyDiagnoses / ProceduresReferred By ContactReferred To ContactHematology/Oncology / HEMATOLOGY/ONCOLOGY Diagnoses Follow-up examination 1 year follow up LABS WITH CT Procedures EST PATIENT Racquel Cole MD [facility] [place] [address] Racquel Cole MD [address] [place] [address] [place] [address] Referral IDStatusReasonStart DateExpiration DateVisits RequestedVisits [id number]/28/202212/31/[id number]k Information NeurosurgeryReasonCommentsEstablished PatientSpecialtyDiagnoses / Procedures Referred By ContactReferred To ContactHematology/Oncology / HEMATOLOGY/ONCOLOGY Diagnoses 2 week phone follow up [phone] Procedures PHYS/QHP TELEPHONE EVALUATION 5-10 MIN PROVIDER SPECIALTY PHONE CALL Racquel Cole MD [address] [place] [address] Racquel Cole MD [facility] [place] [address] Referral IDStatusReasonStart DateExpiration DateVisits RequestedVisits [id number]/12/202212/566440PdimddEljzpkqqFmbdorSfxgaqfp Referral--oldReasonCommentsAppointmentReasonCommentsNew PatientSpecialty Diagnoses / ProceduresReferred By ContactReferred To ContactNeurology / BRAIN TUMOR Diagnoses Hydrocephalus (HCC) Hydrocephalus Procedures OFFICE/OUTPATIENT NEW MODERATE MDM 45-59 MINUTES NEW SURGICAL Oziel Cadena MD [address] [address] Kelly Perez PA-C [address] [place] [address] Referral IDStatusReasonStart DateExpiration DateVisits RequestedVisits [id number]/29/202312/[id number] Question ReasonCommentsRadiology MRISpecialtyDiagnoses / ProceduresReferred By Contact Referred To ContactMR IMAGING Diagnoses 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HCC) Procedures MRI BRAIN WO/W IVCON MRI BRAIN BRAIN STEM W/O W/CONTRAST MATERIAL Kelly Perez PA-C [address] [place] [address] Mr Imaging Referral IDStatusReasonStbingham DateExpiration DateVisits RequestedVisits [id number] Auto-Generated Referral /[id number] Patient VisitReasonCommentsHead and Neck Cancer1 year follow upReasonCommentsRadiology CTSpecialtyDiagnoses / Procedures Referred By ContactReferred To ContactCT IMAGING Diagnoses 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) Procedures CT NECK SOFT TISSUE W IVCON CT SOFT TISSUE NECK W/CONTRAST MATERIAL Racquel Cole MD [address] [place] [address] [place] [address] [facility] [place] [address] Referral IDStatusReasonStart DateExpiration DateVisits RequestedVisits [id number] Auto-Generated Referral /[id number] / ProceduresReferred By ContactReferred To ContactCT IMAGING Diagnoses Lung nodules Procedures CT CHEST W IVCON DIAGNOSTIC COMPUTED TOMOGRAPHY THORAX W/CONTRAST Racquel Cole MD [address] [place] [address] [place] [address] Ct [facility] Referral IDStatusReasonart DateExpiration DateVisits RequestedVisits [id number] Auto-Generated Referral /[id number] / ProceduresReferred By ContactReferred To ContactCT IMAGING Diagnoses Malignant neoplasm of head, face and neck (HCC) Lung nodules 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) Localized swelling, mass or lump of neck Procedures CT NECK SOFT TISSUE W IVCON CONTRAST CAT OF NECK TISSUE Racquel Cole MD [address] [place] [address] [address] [place] [id number] [facility] [place] [address] Ref[facility]Status[facility] DateExpiration DateVisits RequestedVisits [id number] Auto-Generated Referral /[id number] PainTinglingNumbnessSpecialtyDiagnoses / ProceduresReferred By ContactReferred To ContactRadiology 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 tumor perfusion protocol w and wo IV contrast Shimon Heaton PA-C [address] [place] [address] Ref[facility]Status[facility] DateExpiration DateVisits RequestedVisits [id number] Perform Procedure [id number] PainSpecialtyDiagnoses / ProceduresReferred By ContactReferred To Contact Diagnoses Cervical radiculopathy Senile osteoporosis Procedures ECG 12 lead Doretha Harris MD [address] [facility], [facility] [address] [place] [address] Referral IDStatusReasonStart DateExpiration DateVisits RequestedVisits [id number]/24/20247/24/[id number] / Procedures Referred By ContactReferred To ContactRadiology Diagnoses Cervical radiculopathy Procedures XR cervical spine complete 6+ views Doretha Harris MD [address] [facility], [facility] [address] [place] [address] Referral IDStatusReasonStart DateExpiration DateVisits RequestedVisits [id number] Perform Procedure [id number] / ProceduresReferred By ContactReferred To ContactRadiology Diagnoses Cervical radiculopathy Procedures XR DEXA bone density Doretha Harris MD [address] [facility], [facility] [address] [place] [address] Referral IDStatusReasonStart DateExpiration DateVisits RequestedVisits [id number] Perform Procedure [id number]-rq Spine SurgeryPain in left shoulder. 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) Procedures CT CHEST W IVCON DIAGNOSTIC COMPUTED TOMOGRAPHY THORAX W/CONTRAST Racquel Cole MD [address] [place] [address] [place] [address] Phone: tel: fax: [place] [address] Referral IDStatusReasonStart DateExpiration DateVisits RequestedVisits [id number] Auto-Generated Referral /[id number] Check Care Teams (unrecognized sec tion and content) Team MemberRelationshipSpecialtyStart DateEnd Date Griselda Krause [address] [place] [address], [place] [address] PCP - GeneralFamily Practice11/20/18 Griselda Krause [address] [place] [address], [place] [address] ReferringFamily Practice11/20/18Team MemberRelationshipSpecialtyStart DateEnd Date Griselda Krause [address] [place] [address], [place] [address] PCP - GeneralFamily Practice11/20/18 Griselda Krause [address] [place] [address], [place] [address] ReferringFamily Practice11/20/18Team MemberRelationshipSpecialtyStart DateEnd Date Griselda Krause [address] [place] [address], [facility] PCP - GeneralFamily Practice11/20/18 Griselda Krause [address] [place] [address], [place] [address] ReferringFamily Practice11/20/18Team MemberRelationshipSpecialtyStart DateEnd Date Griselda Krause [address] [place] [address], [place] [address] PCP - GeneralFamily Practice11/20/18 Griselda Krause [address] [place] [address], [place] [address] ReferringFamily Practice11/20/18Team MemberRelationshipSpecialtyStart DateEnd Date Griselda Krause [address] [place] [address], [place] [address] [facility]/20/18 Griselda Krause [address] [place] [address], [place] [address] Referring[facility] Medicine11/20/18Team MemberRelationshipSpecialtyStart DateEnd Date Griselda Krause [address] [place] [address], [place] [address] PCP - [facility] Medicine11/20/18 [address]da [address] [place] [address], [place] [address] [facility]erring[facility]11/20/18 Team Status: Inactive Member Role Status Poornima Krause , DO Primary Care Provider Active Elias Kingsley ProviderActive Team Status: Active Member Role Status Poornima Krause , DO Primary Care Provider Active Rafa Cuevas ProviderActive Team Status: Active Member Role Status Poornima Krause , DO Primary Care Provider Active Team Status: Inactive Member Role Status Poornima Krause , DO Primary Care Provider Active Danielle Ortiz Jr ProviderActive Team Status: Active Member Role Status Poornima Krause , DO Primary Care Provider Active Nikole Mota , [employer] ADULT LITERACY TEACHER-CAttending ProviderActive Team Status: Inactive Member Role Status Poornima Krause , DO Primary Care Provider Active Rafa Cuevas ProviderActive Team Status: Inactive Member Role Status Poornima Krause , DO Primary Care Provider Active Nikole Mota , [employer] ADULT LITERACY TEACHER-CAttending ProviderActiveTeam MemberRelationship SpecialtyStart DateEnd Date Griselda Krause [address] [place] [address], [place] [address] PCP - [facility] Medicine11/20/18 Griselda Krause [address] [place] [address], [place] [address] ReferringFamily Medicine11/20/18 Oziel Cadena MD [address] [facility] [address] ROTHMAN [address] [place] [address], [place] [address] ReferringNeurology08/18/22Team MemberRelationshipSpecialtyStart DateEnd [facility] Griselda Krause [address] [place] [address], [place] [address] PCP - GeneralFamily Medicine11/20/[address] [place] [address] [facility]erringF[facility] Medicine11/20/18 Oziel Cadena MD [address] [facility] [address] [place] [address] ReferringNeurology08/18/22Team MemberRelationshipSpecialtyStart DateEnd [facility] Griselda Krause [address] [place] [address], [place] [address] [facility] - [facility]11/20/18 Griselda Krause [address] [place] [address], [place] [address] ReferringFamily Medicine11/20/18 Oziel Cadena MD [address] [facility] [address] R[address]MAN [address] [place] [address], [place] [address] ReferringNeurology08/18/22 Team Status: Inactive Member Role Status Dates Griselda Krause , Primary Care Provider, Attending Provi skye Active Team Status: Inactive Member Role Status Dates Griselda Krause , DO Primary Care Provider Active Rafa Lawler ProviderActive Team Status: Inactive Member Role Status Dates Griselda Krause , Primary Care Provider Active Ella Fischer ProviderActive Team Status: Inactive Member Role Status Dates Griselda Krause DO Primary Care Provider Active Rafa Hogan ProviderActive Team Status: Inactive Member Role Status Poornima Krause DO Primary Care Provider Active Rafa Mendoza ProviderActiveTeam MemberRelationship SpecialtyStart DateEnd Date Griselda Krause DO [address] [place] [facility] [phone] [facility]/13/23Team MemberRelationshipSpecialtyStart DateEnd Date Griselda Krause, [address] [place] [facility] [place] [address] PCP - [facility]02/13/23 Team Status: Inactive Member Role Status Poornima Krause DO Primary Care Provider Active Sta rt: May 04, 2023 End: May 04, 2023Nikole Mota APRN ADULT LITERACY TEACHER-CAttending Provider ActiveStart: May 04, 2023 End: May [...] rt: September 05, 2023 End: September 05, 2023LinRafa Estevez ProviderActiveStart: September 05, 2023 End: September 05, 2023Team MemberRelationshipSpecialtyStart DateEnd Date Griselda Krause DO PCP - General01/03/19Team MemberRelationshipSpecialtyStart DateEnd Date Griselda Krause DO [address] [facility] [address] [place] [address] PCP - General01/03/19 [place] [address] [place] [address] Consulting PhysicianHematology and Oncology10/05/23 Team Status: Inactive Member Role Status Dates Griselda Krause DO Primary Care Provide r, Attending Provider Active Start: October 09, 2023 End: October 09, 2023 Team Status: Inactive Member Role Status Dates Griselda Krause DO Primary Care Provider Active Sta rt: October 18, 2023 End: October 18, 2023Rafa Hogan ProviderActiveStart: October 18, 2023 End: October 18, 2023 Team Status: Active Member Role Status Dates Griselda Krause DO Primary Care Provider Active Sta rt: October 26, 2023 Rafa Felton ProviderActiveStart: October 26, 2023 Team Status: Inactive Member Role Status Dates Griselda Krause DO Primary Care Provide r, Attending Provider Active Start: October 29, 2023 End: October 29, 2023Team MemberRelationshipSpecialtyStart DateEnd Date Griselda Krause [address] [place], [place] [phone] PCP - GeneralFamily Medicine11/20/18 Griselda Krause [address] [place], [place] [phone] ReferringFamily Medicine11/20/18 Oziel Cadena MD 5319 [facility] [address] [address] ReferringNeurology08/18/22 Team Status: Active Member Role Status Dates Lilliam Cason MD Hot Walker Active Saira Stewart Care ProviderActive Team Status: Inactive Member Role Status Dates Griselda Krause DO Primary Care Provide r, Attending Provider Active Start: December 03, 2023 End: December 03, 2023 Team Status: Inactive Member Role Status Dates Griselda Krause DO Primary Care Provide r, Attending Provider Active Start: January 31, 2024 End: January 31, 2024Team MemberRelationshipSpecialtyStart DateEnd Date Griselda Krause [address] [place] [phone] PCP - GeneralFamily Medicine11/20/18 Griselda Krause [address] [place] [address] ReferringFamily Medicine11/20/18 Oziel Cadena MD [address] [facility] [address] [place] [address], [place] [address] ReferringNeurology08/18/22Team MemberRelationshipSpecialtyStart DateEnd Date Griselda Krause [address] [place], [place] [phone] PCP - GeneralFamily Medicine11/20/18 Griselda Krause [address] [place], [place] [phone] ReferringFamily Medicine11/20/18 Oziel Cadena MD [address] [facility] [address]man [address] [place] [address] ReferringNeurology08/18/22Team MemberRelationshipSpecialtyStart DateEnd Date Griselda Krause [address] [place] [address] PCP - GeneralFamily Medicine11/20/18 Griselda Krause [address] [place] [address] ReferringFamily Medicine11/20/18Team MemberRelationshipSpecialtyStart DateEnd Date Griselda Krause DO [address] [place] [address] PCP - General01/03/19 [place] [address] [place] [address] Consulting PhysicianHematology and Oncology10/05/23 Solomon Narayanan PA-C [address] [facility], [address] [address] Physician AssistantNeurosurgery12/12/23 Team Status: Inactive Member Role Status Dates Griselda Krause DO Primary Care Provide r, Attending Provider Active Start: April 01, 2024 End: April 01, 2024Team MemberRelationshipSpecialtyStart DateEnd Date Griselda Krause DO [address] [place] [address] PCP - General01/03/19 [place] [address] [place] [address] Consulting PhysicianHematology and Oncology10/05/23 Solomon Narayanan PA-C [address] [facility], [address] [address] Physician AssistantNeurosurgery12/12/23Team MemberRelationshipSpecialtyStart Date End Date Griselda Krause DO [address] [place] [address] PCP - General01/03/19 [place] [address] [place] [address] Consulting PhysicianHematology and Oncology10/05/23 Solomon Narayanan PA-C [address] [place] [address] Physician AssistantNeurosurgery12/12/23 Team Status: Inactive Member Role Status Dates Griselda Krause DO Primary Care Provider Active Sta rt: April 28, 2024 End: April 28, 2024Linda Jasson Casonending ProviderActiveStart: April 28, 2024 End: April 28, 2024Team MemberRelationshipSpecialtyStart DateEnd Date Griselda Krause DO [address] [place] [address] PCP - GeneralFamily Medicine02/13/23Team MemberRelationshipSpecialtyStart DateEnd Date Griselda Krause DO [address] [place] [phone] PCP - GeneralFamily Medicine02/13/23Team MemberRelationshipSpecialtyStart DateEnd Date Griselda Krause DO [address] [place], [place] [phone] PCP - General01/03/19 [place] [address] [place] [address] Consulting PhysicianHematology and Oncology10/05/23 Solomon Narayanan PA-C [address] [facility], [address] [address] Physician AssistantNeurosurgery12/12/23Team MemberRelationshipSpecialtyStart Date End Date Griselda Krause DO [address] [place] [address] PCP - General01/03/19 [place] [address] [place] [address] Consulting PhysicianHematology and Oncology10/05/23 Solomon Narayanan PA-C [address] [facility], [address] [address] Physician AssistantNeurosurgery12/12/23Team MemberRelationshipSpecialtyStart Date End Date Griselda Krause DO [address] [place] [address] PCP - General01/03/19 [place] [address] [place] [address] Consulting PhysicianHematology and Oncology10/05/23 Solomon Narayanan PA-C [address] [facility], [address] [address] Physician AssistantNeurosurgery12/12/23Team MemberRelationshipSpecialtyStart Date End Date Griselda Krause DO [address] [place] [address] PCP - General01/03/19 [place] [address] [place] [address] Consulting PhysicianHematology and Oncology10/05/23 Solomon Narayanan PA-C [address] [facility], [address] [address] Physician AssistantNeurosurgery12/12/23Team MemberRelationshipSpecialtyStart Date End Date Griselda Krause DO [address] [place] [address] PCP - General01/03/19 [place] [address] [place] [address] Consulting PhysicianHematology and Oncology10/05/23 Solomon Narayanan PA-C [address] [facility], [address] [address] Physician AssistantNeurojaleesarlamberty12/12/23Team MemberRelationshipSpecialtyStart Date End Date Griselda Krause DO [address] [place] [address] PCP - General01/03/19 [place] [address] [place] [id number] Consulting PhysicianHematology and Oncology10/05/23 Solomon Narayanan PA-C [address] [facility], [address] [address] Physician AssistantNeurosurgery12/12/23 Team Status: Inactive Member Role Status Dates Griselda Krause DO Primary Care Provider Active Sta rt: June 24, 2024 End: June 24, 2024Mingo Blanton ProviderActiveStart: June 24, 2024 End: June 24, 2024Team MemberRelationshipSpecialtyStart DateEnd Date Griselda Krause DO [address], [place] [id number] PCP - General01/03/19 [place] [address] [place] [address] Consulting PhysicianHematology and Oncology10/05/23 Solomon Narayanan PA-C [address] [place] [address] Physician AssistantNeurosurgery12/12/23Team MemberRelationshipSpecialtyStart Date End Date Griselda Krause DO [address] [phone] PCP - GeneralFamily Medicine02/13/23 Team Status: Inactive Member Role Status Dates Griselda Krause DO Primary Care Provide r, Attending Provider Active Start: July 03, 2024 End: July 03, 2024Team MemberRelationshipSpecialtyStart DateEnd Date Griselda Krause DO [address] [place] [address] PCP - GeneralFamily Medicine02/13/23Team MemberRelationshipSpecialtyStart DateEnd Date Griselda Krause DO [address] [place] [address] PCP - GeneralFamily Medicine02/13/23 Team Status: Active Member Role Status Dates Griselda Krause DO Primary Care Provider Active Sta rt: September 11, 2024 Jasson Mendozaending ProviderActiveStart: September 11, 2024 Team Status: Inactive Member Role Status Poornima Krause DO Primary Care Provider Active Sta rt: September 11, 2024 End: September 11, 2024Keysha Guy ADULT LITERACY TEACHER-CAttenyong ProviderActiveStart: September 11, 2024 End: September 11, 2024Team MemberRelationshipSpecialtyStart DateEnd Date Griselda Krause DO [facility] [place] [address] [facility]02/13/23 Team Status: Inactive Member Role Status [...] September 20, 2024Team MemberRelationshipSpecialtyStart DateEnd Date Griselda Krause DO PCP - [facility]02/13/23 Team Status: Inactive Member Role Status Poornima Krause DO Primary Care Provider Active Sta rt: October 06, 2024 End: October 06Elias Griggs ProviderActiveStart: October 06, 2024 End: October 06, 2024 Team Status: Inactive Member Role Status Poornima Krause DO Primary Care Provide r, Other Provider Active Start: October 07, 2024 End: October 07johan Negron APRNAtpratik ProviderActiveStart: October 07, 2024 End: October 07, 2024 Team Status: Active Member Role Status Poornima Krause DO Primary Care Provider Active Sta rt: October 10, 2024 Solomon Narayanan , PA-CAttending ProviderActiveStart: October 10, 2024 Team Status: Inactive Member Role Status Dates Griselda Krause DO Primary Care Provider Active Sta rt: October 10, 2024 End: October 10, 2024Solomon Montez APRNAttending ProviderActiveStart: October 10, 2024 End: October 10, 2024 Team Status: Inactive Member Role Status Dates Griselda Krause DO Primary Care Provider Active Sta rt: October 10, 2024 End: October 10, 2024Solomon Narayanan , PA-CAttending ProviderActiveStart: October 10, 2024 End: October 10, 2024Team MemberRelationshipSpecialtyStart DateEnd Date Griselda Krause DO [address] [place] [address] PCP - General01/03/19 [place] [address] [place] [address] Consulting PhysicianHematology and Oncology10/05/23 Solomon Narayanan PA-C [address] [place] [address] Physician AssistantNeurosurgery12/12/23Team MemberRelationshipSpecialtyStart Date End Date Griselda Krause DO [address] [place] [address] PCP - General01/03/19 [place] [address] [place] [address] Consulting PhysicianHematology and Oncology10/05/23 Solomon Narayanan PA-C [address] [place] [address] Physician AssistantNeurosurgery12/12/23 Team Status: Inactive Member Role Status Dates Griselda Krause DO Primary Care Provider Active Sta rt: October 27, 2024 End: October 27, 2024LinJasson Estevezending ProviderActiveStart: October 27, 2024 End: October 27, 2024Team MemberRelationshipSpecialtyStart DateEnd Date Griselda Krause [address] [place] [phone] PCP - GeneralFamily Medicine11/20/18 Griselda Krause [address] [place], [place] [phone] ReferringFamily Medicine11/20/18 Oziel Cadena MD [address] [facility] [address]man [address] [place] [address] ReferringNeurology08/18/22Team MemberRelationshipSpecialtyStart DateEnd Date Griselda Krause [address] [place] [phone] PCP - GeneralFamily Medicine11/20/18 Griselda Krause [address] [place] [phone] ReferringFamily Medicine11/20/18 Oziel Cadena MD [address] [place] [id number] ReferringNeurology08/18/22Team MemberRelationshipSpecialtyStart DateEnd Date Griselda Krause DO [facility]02/13/23 Team Status: Active Member Role Status Dates Griselda Krause DO Primary Care Provider Active Sta rt: November 03, 2024 QUENTIN Kelly-CAttenyong ProviderActiveStart: November 03, 2024 Team Status: Inactive Member Role Status Dates Griselda Krause DO Primary Care Provider Active Sta rt: November 05, 2024 End: November 05, 2024Imad Asahi , MDAttending ProviderActiveStart: November 05, 2024 End: November 05, 2024 Team Status: Active Member Role Status Dates Griselda Krause DO Primary Care Provider Active Sta rt: November 05, 2024 Imad Asaad , MDAttending Provider, Other ProviderActiveStart: November 05, 2024 Team [...] November 19, 2024Team MemberRelationshipSpecialtyStart DateEnd Date Griselda Krause DO [facility]02/13/23 Team Status: Inactive Member Role Status Dates Griselda Krause DO Primary Care Provide r, Attending Provider Active Start: 2024 End: November 24, 2024Team MemberRelationshipSpecialtyStart DateEnd Date Griselda Krause DO [facility]02/13/23 Team Status: Active Member Role Status Dates Griselda Krause DO Primary Care Provider Active Sta rt: November 05, 2024 Imad Asaad , MDAttending ProviderActiveStart: November 05, 2024 Nevin Guido ProviderActiveStart: November 05, 2024 Team Status: Inactive Member Role Status Dates Griselda Krause DO Primary Care Provider Active Sta rt: November 19, 2024 End: November 19retdimitry Krause , DOAttending ProviderActiveStart: November 19, 2024 End: November 19, 2024 Team Status: Inactive Member Role Status Dates Griselda Krause DO Primary Care Provider Active Sta rt: 2024 End: November 24retdimitry Krause , DOAttending ProviderActiveStart: 2024 End: 2024 Team Status: Inactive Member Role Status Dates Griselda Krause DO Primary Care Provider Active Sta rt: January 12, 2025 End: January 12, 2025Aby Gregory ProviderActiveStart: January 12, 2025 End: January 12, 2025Team MemberRelationshipSpecialtyStart DateEnd Date Griselda Krause DO PCP - [facility]02/13/23Team MemberRelationshipSpecialtyStart DateEnd Date Griselda Krause DO [facility]02/13/23 Team Status: Active Member Role Status Dates Griselda Krause DO Primary Care Provider Active Sta rt: January 27, 2025 Sarina Ramsey , MDAttending ProviderActiveStart: January 27, 2025 Team Status: Active Member Role Status Dates Griselda Krause DO Primary Care Provider Active Sta rt: February 18, 2025 Sofia Arias , DOAttending ProviderActiveStart: February 18, 2025 Team Status: Inactive Member Role Status Dates Griselda Krause DO Primary Care Provider Active Sta rt: February 19, 2025 End: February 19natalya Krause , DOAttending ProviderActiveStart: February 19, 2025 End: February 19, 2025Team MemberRelationshipSpecialtyStart DateEnd Date Griselda Krause DO PCP [facility]02/13/23 Team Status: Inactive Member Role Status Poornima Krause DO Primary Care Provider Active Sta rt: February 26, 2025 End: February 26natalya Krause , DOAttending ProviderActiveStart: February 26, 2025 End: February 26, 2025Team MemberRelationshipSpecialtyStart DateEnd Date Griselda Krause DO PCP - [facility]02/13/23 Team Status: Inactive Member Role Status Poornima Krause DO Primary Care Provider Active Sta rt: April 01, 2025 End: April 01natalya Krause , DOAttending ProviderActiveStart: April 01, 2025 End: April 01, 2025 Team Status: Active Member Role/Relationship Status Dates Lilliam Cason MD Hot Walker Active Cate StewartCox Wal[facility] Lawn ProviderActive Team Status: Active Member Role/Relationship Status Poornima Krause DO Primary Care Provider Active Sta rt: January 27, 2025 Sarina Ramsey MDAttending ProviderActiveStart: January 27, 2025 Team Status: Active Member Role/Relationship Status Poornima Krause DO Primary Care Provider Active Sta rt: February 18, 2025 Sofia Arias , DOAttending ProviderActiveStart: February 18, 2025 Team Status: Inactive Member Role/Relationship Status Poornima Krause DO Primary Care Provider Active Sta rt: February 19, 2025 End: February 19natalya Krause , DOAttending ProviderActiveStart: February 19, 2025 End: February 19, 2025 Team Status: Inactive Member Role/Relationship Status Poornima Krause DO Primary Care Provider Active Sta rt: February 26, 2025 End: February 26natalya Krause , DOAttending ProviderActiveStart: February 26, 2025 End: February 26, 2025 Team Status: Inactive Member Role/Relationship Status Poornima Krause DO Primary Care Provider Active Sta rt: April 01, 2025 End: April 01Risa Bright ProviderActiveStart: April 01, 2025 End: April 01, 2025 Team Status: Active Member Role/Relationship Status Dates Griselda Krause DO Primary Care Provider Active Sta rt: April 03, 2025 Risa Stewart ProviderActiveStart: April 03, 2025 Team Status: Inactive Member Role/Relationship Status Dates Griselda Krause DO Primary Care Provider Active Sta rt: April 27, 2025 End: April 27, 2025Lilliam Cason Jassoneleni ProviderActiveStart: April 27, 2025 End: April 27, 2025 Goals (unrecognized section and content) Goals from 12/28/2022 8:23 AM:Goal for Mobility : Maintain active lifestyle as tolerated Goals may be documented in an alternate section Scheduled Active and Recently Administ ered Medications (unrecognized section and content) Medication Order acetaminophen (Tylenol) tablet 650 mg 650 mg, [...] (Given - Provider: Elizabeth Esposito RN) * 131 (Due) * 1914 (Due) amLODIPine (Norvasc) tablet 10 mg 10 mg, oral, Daily, First dose on Sun04/09/24 at 1915, Phase II/On Unit * 2022 (Given - Provider: Elizabeth Espostio RN) * 1035 (Given - Provider: Whitney Kaufman, JANEEN) busPIRone (Buspar) tablet 5 mg 5 mg, oral, 2 times daily, First dose on Sun04/09/24 at 2099, Phase II/On Unit * 2014 (Not Given - Provider: Elizabeth Esposito RN - Reason: Patient/family refused) * 1035 (Given - Provider: Whitney Kaufman RN) * 2099 (Due) citalopram (CeleXA) tablet 10 mg 10 [...] Gas - Provider: Goyo Agarwal RN) * 171 (Due) polyethylene glycol (Glycolax, Miralax) packet 17 [...] Elizabeth Esposito RN) * 2099 (Due) Medication Order lactated Ringer's infusion (CANCELED) 20 mL/hr, intravenous, Continuous, Starting on Sun04/09/24 at 1215, Preprocedure * 1341 (New Bag - Provider: Shelly Mullins [facility]) * 1630 (Stopped - Provider: NAVEEN Reddy) * 1631 (Continued from OR - Provider: Goyo Agarwal RN) * 145 (Due: Stopped - Provider: Nikole Lezama, AnuradhaD) lactated Ringer's infusion 100 mL/hr, intravenous, Continuous, Starting on Sun04/09/24 at 1915, For 24 hours, Phase II/On Unit, Convert IV to saline lock when taking oral fluids. * 1944 (Not Given - Provider: Elizabeth Esposito RN - Reason: Patient/family refused) Medication Order/ albuterol 90 mcg/actuation inhaler 2 puff 2 [...] BE BASED ON THE PRIMARY CLINICAL RECORDS. [facility]. provides no warranty or guarantee of the accuracy or completeness of information in this document.
--- NOTE | 2025-05-20 11:39 | PM.CN ---
Consult Note: HPI Data of Consult Patient: known to practice within the last 3 years Requesting Physician: Delia Bowser NP Primary Care Provider: GRISELDA KRAUSE Consult Narrative Reason for consult: chronic pain Narrative: Jovani Kong a pleasant 64 year old male presents for evaluation and management of chronic left shoulder pain and low back pain unresponsive to > 6 weeks of HEP, heat, ice, tylenol, nsaids. recently underwent left suprascapular/axillary nerve RFA with moderate relief, overall at least 50% improvement in pain with RFA. Pt completed lumbar xray with results below. Pt noting pain 6.5/10 in left posterior shoulder and low back/right buttock and thigh pain. 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 utilizing norco 7.5mg bid prn moderate to severe pain, lyrica 50mg daily, tizanidine 4mg bid prn pain/spasms. on plavix, cannot take NSAIDs. cc:: CC: Delia Bowser NP Review of Systems ROS Musculoskeletal Reports: back pain, neck pain, extremity pain and joint pain PFSH PFSH Medical History Tongue carcinoma ?C02.9 - Malignant neoplasm of tongue, unspecified (ICD-10) First degree AV block ?I44.0 - Atrioventricular block, first degree (ICD-10) Claudication of both lower extremities ?I73.9 - Peripheral vascular disease, unspecified (ICD-10) Nicotine dependence with current use ?F17.200 - Nicotine dependence, unspecified, uncomplicated (ICD-10) Oral cancer ?C06.9 - Malignant neoplasm of mouth, unspecified (ICD-10) Cervical radiculopathy ?M54.12 - Radiculopathy, cervical region (ICD-10) Myofascial pain ?M79.18 - Myalgia, other site (ICD-10) Mononeuropathy of left suprascapular nerve ?G56.82 - Other specified mononeuropathies of left upper limb (ICD-10) Neuropathy, axillary nerve ?G56.90 - Unspecified mononeuropathy of unspecified upper limb (ICD-10) Cervical spondylosis ?M47.812 - Spondylosis without myelopathy or radiculopathy, cervical region (ICD-10) Degenerative disc disease, cervical ?M50.30 - Other cervical disc degeneration, unspecified cervical region (ICD-10) Chronic prescription opiate use ?Z79.891 - 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 (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) use of opiate analgesic (ICD-10) Myalgia, other site ?M79.18 - Myalgia, other site (ICD-10) Malignant neoplasm of head and neck ?C76.0 - Malignant neoplasm of head, face and neck (ICD-10) Squamous cell carcinoma Skin cancer ?C44.90 - Unspecified malignant neoplasm of skin, unspecified (ICD-10) Osteoarthritis ?M19.90 - Unspecified osteoarthritis, unspecified site (ICD-10) Depression ?F32.A - Depression, unspecified (ICD-10) Anxiety ?F41.9 - Anxiety disorder, unspecified (ICD-10) Seasonal allergies ?J30.2 - Other seasonal allergic rhinitis (ICD-10) Cataract ?H26.9 - Unspecified cataract (ICD-10) GERD (gastroesophageal reflux disease) ?K21.9 - Gastro-esophageal reflux disease without esophagitis (ICD-10) Dyspnea on exertion ?R06.09 - Other forms of dyspnea (ICD-10) PVD (peripheral vascular disease) ?I73.9 - Peripheral vascular disease, unspecified (ICD-10) High cholesterol ?E78.00 - Pure hypercholesterolemia, unspecified (ICD-10) Neck pain ?M54.2 - Cervicalgia (ICD-10) Low back pain ?M54.50 - Low back pain, unspecified (ICD-10) Smoker ?F17.200 - Nicotine dependence, unspecified, uncomplicated (ICD-10) Irregular heart beat ?I49.9 - Cardiac arrhythmia, unspecified (ICD-10) Hypertension ?I10 - Essential (primary) hypertension (ICD-10) Surgical History Status post surgical removal of malignant neoplasm of skin ?Z98.890 - Other specified postprocedural states (ICD-10) History of tonsillectomy ?Z90.89 - Acquired absence of other organs (ICD-10) Status post cervical spinal fusion ?Z98.1 - Arthrodesis status (ICD-10) Cataract extraction status of left eye ?Z98.42 - Cataract extraction status, left eye (ICD-10) H/O cervical spine surgery ?Z98.890 - Other specified postprocedural states (ICD-10) H/O neck dissection ?Z98.890 - Other specified postprocedural states (ICD-10) Family History Other Family history of COPD (chronic obstructive pulmonary disease) Family history of diabetes mellitus Family history of emphysema Family history of heart disease Family history of hypertension Family history of stroke Family history of throat cancer Social History Within the past year, how often did you have a drink containing alcohol: never Score interpretation: A score less than 4 is consistent with normal alcohol consumption. Smoking status: Current every day smoker Non-prescribed substance use: denies use Previous occupational history: disabled Highest level of school completed/degree received: high school graduate Little interest or pleasure in doing things: not at all Feeling down, depressed, or hopeless: not at all Meds Home Medications and Allergies Home Medications ?Medication ?Instructions ?Recorded ?Confirmed ?Type aspirin 81 mg tablet,delayed 81 mg PO DAILY 04/16/23 04/13/25 History release (Adult Low Dose Aspirin) naloxone 4 mg/actuation nasal 4 mg intranasal Q2M PRN opioid 09/11/24 04/13/25 Rx spray (Narcan) overdose #2 ea hydrocodone 7.5 mg-acetaminophen 1 tab PO BID PRN pain #60 tabs 01/01/25 04/13/25 Rx 325 mg tablet alirocumab 75 mg/mL subcutaneous 75 mg subcut Q14D 01/27/25 04/13/25 History pen injector (Praluent Pen) citalopram 10 mg tablet 10 mg PO DAILY 01/27/25 04/13/25 History ezetimibe 10 mg tablet 10 mg PO DAILY 01/27/25 04/13/25 History pantoprazole 40 mg tablet,delayed 40 mg PO Q12H 01/27/25 04/13/25 History release tizanidine 4 mg capsule 4 mg PO Q12H 01/27/25 04/13/25 History hydrocodone 7.5 mg-acetaminophen 1 tab PO BID PRN pain #60 tabs 03/04/25 04/13/25 Rx 325 mg tablet hydrocodone 7.5 mg-acetaminophen 1 tab PO BID PRN pain #60 tabs 04/02/25 04/13/25 Rx 325 mg tablet diazepam 10 mg tablet mg 04/13/25 History pregabalin 50 mg capsule (Lyrica) 50 mg PO DAILY #30 caps 04/16/25 Rx hydrocodone 7.5 mg-acetaminophen 1 tab PO BID PRN pain #60 tabs 05/13/25 Rx 325 mg tablet pregabalin 50 mg capsule (Lyrica) 50 mg PO DAILY #30 caps 05/13/25 Rx Allergies Allergy/AdvReac Type Severity Reaction Status Date / Time cephalexin (From Keflex) Allergy Unknown hives Verified 04/13/25 12:10 Exam Constitutional Documenting provider has reviewed patient's vital signs: yes Common normals: no apparent distress, oriented x3, healthy appearing, alert and well nourished General appearance: cooperative HENMT Common normals: normocephalic, hearing grossly normal bilaterally and moist oral mucous membranes Head and scalp: normocephalic Eye Common normals: PERRL Pupil: PERRL Neck & C-Spine General: normal visual inspection Cervical spine: cervical ROM abnormal and pain with cervical ROM Chest Common normals: inspection of chest normal Respiratory Common normals: normal respiratory effort, no retractions and no use of accessory muscles Back & Pelvis Lumbar spine/lower back: ROM limited, pain with ROM, lumbar spinal tenderness and straight leg raise positive right Sacroiliac joints: SI joint(s) abnormal Other: right sij positive elyse(patricks), gaenslens, thigh thrust, compression test strength 4/5 in RLE 5/5 in LLE decreased sensation right L2,3,4 Extremity Left upper extremity: shoulder joint Other: left shoulder positive posterior liftoff, apleys scratch test, empty can test. increased pain with overhead ROM. strength 4/5 in LUE and 5/5 in RUE Neuro Common normals: oriented x3 Sensorium/orientation: alert Psych Common normals: mental status grossly normal, thought process normal, cooperative, affect normal, speech normal and activity/motor behavior normal Speech: normal speech Thought process: normal thought process Results Imaging lumbar xray: Attestation: I have reviewed the pertinent imaging results. Radiologist's impression: Mild levocurvature. Mild multilevel intervertebral space narrowing with endplate osteophytosis. There is moderate facet arthropathy L3-S1. No pathologic instability on the flexion or extension images. No definite spondylolysis or spondylolisthesis identified. Additional Findings Additional findings: If on a controlled substance or opioids, I have checked an [place] report on this patient and there are no aberrancies noted in the prescribing history.??If on a controlled substance or opioid a drug screen was completed and reviewed within the last year, and if there has not been a drug screen completed we ordered one today to monitor higher risk, state monitored pain medication use. As part of providing excellent, safe, comprehensive care, the following was completed at our patient's visit: 1. A medication reconciliation and review to ensure accurate knowledge of current/active medications, including asking our patients to inform us about any [id number] medications or herbal remedies/nutritional supplements/alternative remedies. 2. A review to specifically ensure our patients have had annual screening for screening for depression, screening for tobacco use, and screening for unhealthy alcohol use. For concerning screenings had a discussion with the patient, provided patient education, and recommended follow-up with primary care provider when appropriate. If patient noted with a risk of falling, they received education on strength, gait, and balance training to prevent future risk of falling. Portions of this note may have been carried over from the previous visit and updated as appropriate. Please note this office utilizes paper charting in addition to the electronic medical record. A list of current medications, vitals, and PMH is available there as the clinical staff outside of myself do not have access to [employer] charting during the clinic day operations. As part of providing quality comprehensive care the current medications, vitals, and PMH were reviewed in the paper chart. 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 Patient has completed >6 weeks of guided home exercise program and/or formal physical therapy program without relief of their symptoms.? I have reviewed the imaging of the left shoulder and no red flags were identified.? The imaging reveals radiographic findings consistent with OA The Oswestry Disability Index was completed, and the patient scored a 27%.? continue norco 7.5mg bid prn moderate to severe pain continue pregabalin 50mg hs update lumbar mri without contrast to assess lumbar stenosis with NC, low back pain in consideration of NS consultation vs interventional therapy continue HEP as tolerated continue f/u with ns for cervical scs implant, upcoming 06/03 f/u to review lumbar MRI
== END 2025-05-20 11:13 | disposition home or self-care (01) ==
LOC: PM 11:13
PROVIDERS: PCP Family Medicine; Visit Provider Nurse Practitioner
DX: M48.062 Spinal stenosis, lumbar region with neurogenic claudication (principal); M47.816 Spondylosis without myelopathy or radiculopathy, lumbar region; M46.1 Sacroiliitis, not elsewhere classified; M25.512 Pain in left shoulder; M19.012 Primary osteoarthritis, left shoulder; G56.82 Other specified mononeuropathies of left upper limb
CPT/HCPCS: G0463

== ENCOUNTER 2025-05-29 13:32 | Outpatient (OUT) | payer MEDICARE, OTHER, SELFPAY ==
--- NOTE | 2025-05-29 13:41 | MR_ITS ---
[address] [address] Patient Name: SHANTEL MELENDEZ MRN: [id number] date: 1960 Sex: M Assigned Patient Location: MRI Current Patient Location: MRI Accession/Order Number: [id number] Exam Date: 05/29/2025 13:45 Report Date: 05/29/2025 21:40 At the request of: BABATUNDE YOST NP Procedure: MR lumbar spine wo con MR lumbar spine wo con 05/29/2025 2:25 PM SIGNS AND SYMPTOMS: Low back pain radiating to right leg PROTOCOL: Multiplanar multisequence MR images of the lumbar spine without IV contrast COMPARISON: 04/09/2025 FINDINGS: The bones of the lumbar spine are in anatomic alignment. There is preservation of vertebral body heights there is moderate disc height loss at L1-L2 and L5-S1 with mild disc height loss throughout otherwise. The conus terminates at the T12-L1 intervertebral disc level. No epidural or paraspinous fluid collection is appreciated. Sr. Noted in the right renal cortex. At T12-L1: There is a broad-based disc bulge with facet hypertrophy. There is mild spinal canal narrowing with mild bilateral neural foraminal narrowing. At L1-L2: There is a broad-based disc bulge with facet hypertrophy. There is mild spinal canal stenosis with mild left and moderate right neural foraminal stenosis. At L2-L3: There is a circumferential disc bulge. There is mild spinal canal stenosis with moderate right and mild left neural foraminal narrowing. At L3-L4: There is a circumferential disc bulge with facet hypertrophy. There is mild/moderate left and severe right neural foraminal narrowing with mild mass effect on the exiting right L3 nerve roots. At L4-L5: There is a circumferential disc bulge. There is facet hypertrophy with endplate osteophyte formation. There is moderate bilateral neural foraminal narrowing with moderate spinal canal stenosis. At L5-S1: There is a circumferential disc bulge with facet hypertrophy. There is endplate osteophyte formation. There is severe left and moderate to severe right neural foraminal narrowing. There is mass effect on the exiting left L5 nerve roots. MR/MR lumbar spine wo con IMPRESSION: At L3-L4: There is a circumferential disc bulge with facet hypertrophy. There is mild/moderate left and severe right neural foraminal narrowing with mild mass effect on the exiting right L3 nerve roots. At L5-S1: There is a circumferential disc bulge with facet hypertrophy. There is endplate osteophyte formation. There is severe left and moderate to severe right neural foraminal narrowing. There is mass effect on the exiting left L5 nerve roots. Lesser degrees of spinal canal or neural foraminal narrowing noted as above. Impression dictated by: Alber Goodson M.D. 05/29/2025 9:40 PM Dictation Location: [place] [address] Electronically authenticated by: [id number] Y Date: 05/29/2025 21:40
--- OUTSIDE RECORDS SUMMARY | 2025-05-29 13:46 | XMS_ITS | CCD ---
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 Name Role Phone Griselda Krause Primary Care Provider [phone] Griselda Krause Attending Provider Griselda Krause Unavailable Unavailable Unavailable Griselda Krause Unavailable Sheng Schneider Unavailable Griselda Krause Primary Care Provider [phone] Griselda Krause Unavailable DO Griselda Krause Primary [...] Carney Unavailable Griselda Krause Primary Care Provider [phone] Darling Griselda Wright Unavailable Tammi NORRIS, Oziel Ruiz Unavailable FLORES CAT Attending Unavailable FLORES CAT Admitting Unavailable KUNS, GRISELDA WRIGHT Primary Care Unavailable Kuns, DO Griselda Primary Care Provider [phone] Kuns, DO Griselda Attending Provider MD Lima [...] Provider quentin, DO Rohit Mullins Emergency Provider [phone] Darling, DO Griselda Attending Provider MD Lilliam Cason Attending Provider Ruddy Harvey Unavailable BAILEY Mota Attending Provider MD Ruddy Harvey Attending Provider [phone] Kuns, DO Griselda Primary Care Provider [phone] Kuns DO, Griselda R Primary Care Provider [phone] Kuns, DO Griselda Primary Care Provider JOSE CRUZ KHAN Attending Unavailable JOSE CRUZ KHAN Referring Unavailable KUNS, GRISELDA R Primary Care Unavailable JOSE CRUZ KHAN Attending Unavailable JOSE CRUZ KHAN Referring Unavailable KUNS, GRISELDA R Primary Care Unavailable Kuns, DO Griselda Primary Care Provider [phone] MD Ruddy Harvey Attending Provider [phone] Darling DOGriselda R Primary Care Provider Andreas DO, Griselda R Primary Care Provider Stiven NORRIS, Helder Jarrett Unavailable AndreasDO Camara Attending Provider Griselda Krause Primary Care Provider Oziel Cadena MD Unavailable [phone] Andreas DO, Griselda R Primary Care Provider Milks PA-C, Solomon A Unavailable Milks PA-C, Solomon A Unavailable Darling Griselda JOSÉ R Primary Care Provider Griselda Krause DO Primary Care Provider Milks PA-C, Solomon A Attending Provider Andreas Griselda JOSÉ Primary Care Provider Milks PA-C, Solomon A Attending Provider Wes NORRIS, Ruddy Joseph Attending Provider [phone] Humberto NORRIS, Daisy Driver Emergency Provider [phone] Griselda Krause DO R Primary Care Provider Griselda Krause DO Primary Care Provider Manisha Negron APRN Emergency Provider [phone] Andreas DOGriselda Other Provider Manisha Negron APRN Attending Provider Milks PA-C, Solomon Nae Attending Provider [phone] Griselda Krause DO R Primary Care Provider [...] Care Unavailable Conchita NORRIS, Nathanael Attending Provider [phone] Kuns , Griselda Attending Provider HARRIS, XIAOFEI Referring Unavailable [...] Care Provider Kuns DO, Griselda Attending Provider [phone] Manisha Negron N Attending Unavailable OliviaeManisha N [...] Attending Provider Hugo Sofia JOSÉ Attending Provider [phone] Griselda Krause DO Attending Provider Lilliam Cason MD Attending Provider [phone] DEBRA FIGUEROA Referring Unavailable DEBRA FIGUEROA Attending Unavailable Unavailable Unavailable Unavailable Allergies Allergy ClassificationReported Allergen(s)Allergy TypeDate of OnsetReaction(s) FacilityCephalosporins (antibiotic) (1 source)CephalexinDrug Csatfbl62-56-1193EivdqBslhbyhaxAccess [facility] (20 sources)Cephalexin; Translations: [CEPHALEXIN]Drug Fqcogjg66-72-8828Zmqsk [facility] (20 sources)Cephalexin; Translations: [Keflex]Drug AllergyH[facility] [employer] Other (1 source)Cephalexin; Translations: [Keflex]Drug AllergyHiCommunity [facility] [place] (17 sources)Keflet; Translations: [KEFLET]Propensity to adverse reactions 44-23-4764JskyzKyawrrdhtuKnox [facility] (5 sources)varenicline; Translations: [varenicline]Drug Slcgdkr66-87-3606 [facility] (1 source)ALLERGIES NOT ON FILE; Translations: [ALLERGIES NOT ON FILE]Propensity to adverse reactions (disorder)[facility] NEGATED: Highlighted row has been ruled out! (1 source)natural latex rubber; Translations: [LATEX, NATURAL RUBBER]Drug allergy (disorder)S EnterpriseNEGATED: Highlighted row has been ruled out! (1 source)No IV Contrast Allergy.; Translations: [IV Dye, Iodine Containing]Drug allergy (disorder)[place] Medications Current Medications MedicationDrug Class(es)DatesSig (Normalized)Sig (Original)acetaminophen 325 mg oral tablet (1 source)Start: 06-82-8771tbel 1 tablet by mouth every six dkmem027 mg, oral, Every 6 hours, First dose on Sun04/09/24 at 1915, Phase II/On Unit, If ordered PRN for pain, nurse is permitted to administer this medication for higher pain scores based on patient preference? Yesacetaminophen 325 mg / HYDROcodone bitartrate 7.5 mg oral tablet (20 sources)Opioid AgonistStart: 84-59-9982swdb 1 tablet by mouth twice daily as needed for painHydrocodone-Acetaminophen 7.5-325 mg tablet Active 1 TAB PO Twice daily as needed for pain October 05, 2024 11:00pm Complies with drug therapy Start: 04-01-2024 End: 47-97-3916jyog 1 tablet by mouth twice dailyHydrocodone-Acetaminophen 7.5- 300 mg tablet Discontinued 1 TAB PO Twice daily 0 March 31, 2024 11:00pm April 28, 2024 9:44amStart: 35-96-7018KRHPXxzambg-acetaminophen ([place]) 5- 325 MG tablet 10/10/2023 ActiveStart: 09-05-2023 End: 90-95-7895cuht 1 tablet by mouth every eight hours as neededHydrocodone- Acetaminophen 5-325 mg tablet Discontinued TAB PO Every 8 hours as needed 0 August 11:00pm April 01, 2024 10:01amStart: 27-99-4201hdfz 1 tablet by mouth once daily as needed for painHYDROcodone-acetaminophen ([place]) 5-325 MG tablet take 1 tablet orally daily NEEDED FOR PAIN MUST LAST 30 DAYS 10/10/2023 ActiveStart: 12-10-2017 End: 75-07-2911brsv 1 tablet by mouth every four hoursHydrocodone-Acetaminophen ([place]) 5-325 mg tablet Discontinued 1 TAB PO Q4H 10 December 10, 2017 April 29, 2018 2:12pm Pleurodynia Pleurodynia pain End: 59-32-9854lzme 1.5 tablets by mouth twice daily as needed for pain HYDROcodone-acetaminophen ([place]) 5-325 mg tablet Take 1.5 tablets by mouth 2 times a day as neededfor severe pain (7 - 10). 04/10/2024 Discontinued (Stop Taking at Discharge)acetaminophen 325 mg / oxyCODONE hydrochloride 5 mg oral tablet (20 sources)Opioid AgonistStart: 04-30-2024 End: 10-90-5940wgln 1 tablet by mouth every six hours for painoxyCODONE- acetaminophen (Percocet) 5-325 mg tablet Indications: Acute postoperative pain Take 1 tablet by mouth every 6 hours if needed for severe pain (7 - 10) (pain) for up to 7 days. 28 tablet 04/30/2024 05/07/2024 ActiveStart: 04-28-2024 End: 81-52-7932sdyq 1 tablet by mouth every eight hours as neededOxycodone- Acetaminophen (Percocet) 5-325 mg tablet Discontinued 1 TAB PO Every 8 hours as needed 0 April 28, 2024 12:00am September 20, 2024 10:05amStart: 04-10-2024 End: 09-17-6443uakr 1 tablet by mouth every six hours for painoxyCODONE- acetaminophen (Percocet) 5-325 mg tablet Indications: Cervical radiculopathy Take 1 tablet by mouth every 6 hours if needed for severe pain (7 - 10) (pain) for up to 7 days. 28 tablet 04/10/2024 04/17/2024 ActiveStart: 04-17-2022 End: 22-50-6388qtxj 1 tablet by mouth every six hours as needed for pain Oxycodone-Acetaminophen (Percocet) 5-325 mg tablet Discontinued 1 - 2 TAB PO Every 6 hours as needed for pain 20 4 0 April 17, 2022 July 17, 2022 8:01am Acute left-sided thoracic back pain Pain in thoracic spine1 ml alirocumab 75 mg/ml auto-injector (5 sources)PCSK9 InhibitorStart: 37-31-7094vrhbvt 75 mg by subcutaneous injection every other weekAlirocumab (Praluent Pen) 75 mg/mL pen injector Active 75 MG SUBCUT Q14D 7 90 November 02, 2024 11:00pm Complies with drug therapy Alirocumab (Praluent Pen) 75 mg/mL pen injector (3 sources)Start: 89-10-4119smvscp 75 mg by subcutaneous injection every other weekAlirocumab (Praluent Pen) 75 mg/mL pen injector Active 75 MG SUBCUT Q14D 7 90 November 03, 2024 12:00amaspirin 81 mg delayed release oral tablet (20 sources)Platelet Aggregation Inhibitor, Nonsteroidal Anti-inflammatory Drug Start: 36-35-1127povk 1 tablet by mouth once dailyaspirin 81 mg EC tablet Indications: Cervical radiculopathy Take 1 tablet (81 mg) by mouth once daily. Do not fill before April 14, 2024. 04/14/2024 ActiveStart: 21-44-3702defl 1 tablet by mouth once dailyaspirin 81 mg EC tablet Indications: Cervical radiculopathy Take 1 tablet (81 mg) by mouth once daily. Do not fill before April 14, 2024. 04/14/2024 ActiveStart: 08-02-2023 End: 29-60-7421djoc 1 tablet by mouth once dailyAspirin 81 mg tablet,delayed release (DR/EC) Active 81 MG PO Daily August 02, 2023 12:00am Complies with drug therapyStart: 07-17-2022 End: 14-93-0386puij 1 capsule by mouth once dailyAspirin 81 [...] mg oral tablet (2 sources)gamma-Aminobutyric Acid-ergic AgonistStart: 82-32-2039ikgi 1 tablet by mouth three times daily as neededbaclofen (Lioresal) 10 MG tablet Take 1 tablet 3 times a day by oral route as needed for 15 days. Active bisacodyl 5 mg delayed release oral tablet (1 source)Stimulant LaxativeStart: 05-58-8178ihqe 1 tablet by mouth every twenty-four hours as neededbusPIRone hydrochloride 10 mg oral tablet (20 sources)Start: 41-18-7596rvkl 5 mg by mouth twice daily5 mg, oral, 2 times daily, First dose on Sun04/09/24 at 2100, Phase II/On UnitStart: 01-31-2024 End: 06-97-9983Jorqeuzpp 5 mg tablet Discontinued 5 MG PO January 30, 2024 11:00pm July 03, 2024 9:50amStart: 12-31-2023 End: 27-50-1653vihu 1 tablet by mouth once daily in [...] meq/ml injectable solution (2 sources)Start: 04-09-2024 End: 08-83-1845Vufgd: 04-09-2024 End: 01-22-2298fugr 20 mL intravenously every hour20 mL/hr, intravenous, Continuous, Starting on Sun04/09/24 at 1215, Preprocedurechlorhexidine gluconate 1.2 mg/ml mouthwash (10 sources)Start: 02-11-2024 End: 34-55-0964oynztvzexiglz (Hibiclens) 4 % external liquid Indications: Cervical radiculopathy , Senile osteoporosis Use as directed daily preoperatively 473 mL 02/11/2024 04/10/2024 Discontinued (Stop Taking at D ischarge)Start: 02-11-2024 End: 20-56-8937imjvdjtfijqub (Peridex) 0.12 % solution Indications: Cervical radiculopathy , Senile osteoporosis Swish and spit with 15ml of solution the night before and morning of surgery. Do not swallow. 15 mL 02/11/2024 04/10/2024 Discontinued (Stop Taking at Discharge)citalopram 20 mg oral tablet (20 sources)Serotonin Reuptake InhibitorStart: 50-81-3057ioyd 1 tablet by mouth once dailyCitalopram 20 mg tablet Active 20 MG PO Daily 90 1 February 19, 2025 10:51am Anxiety and depression Anxiety disorder, unspecified Depression, unspecified Complies with drug therapyStart: 12-03-2023 End: 34-59-1643rmyu 1 tablet by mouth once dailyCitalopram (Celexa) 10 mg tablet Discontinued 10 MG PO Daily 90 1 April 01, 2024 10:02am September 29, 2024 2:11pmStart: 12-26-2021 End: 16-72-7780ohzp 1 tablet by mouth once dailyCitalopram 20 mg tablet Discontinued 20 MG PO Daily August 02, 2023 12:00am December 03, 2023 9:48am FreeTextSi tablet Orally Once a day; Note: Source Status: Continue; Provider: Darling Camara RStart: 98-89-8598asec 1 tablet by mouth once daily citalopram (CELEXA) 40 mg tablet Take 40 mg by mouth once daily. 0 10/22/2018 ActiveStart: 12-10-2017 End: 45-76-0187Btffvrijqq 40 mg tablet Discontinued 20 MG PO Daily December 09, 2017 11:00pm April 29, 2018 2:12pmStart: 12-10-2017 End: 59-01-4397tnnk 20 mg by mouth once dailyCitalopram Discontinued 20 MG PO Daily December 10, 2017 12:00am April 29, 2018 3:12pmtake 0.5 tablet by mouth once dailycitalopram (CeleXA) 20 mg tablet Take 0.5 tablets (10 mg) by mouth once daily. ActiveComment on above:Take 40 mg by mouth once daily.clopidogrel 75 mg oral tablet (20 sources)P2Y12 Platelet InhibitorStart: 12-38-9838tdwg 1 tablet by mouth once dailyClopidogrel 75 mg tablet Active 75 MG PO Daily February 18, 2025 11:00pm Complies with drug therapyStart: 96-22-0834fzrifhfnkmy (Plavix) 75 mg tablet Indications: Cervical radiculopathy Take 1 tablet (75 mg) by mouth once daily. Do not fill before April 23, 2024. 04/23/2024 ActiveStart: 04-23-2024 clopidogrel (Plavix) 75 mg tablet Indications: Cervical radiculopathy Take 1 tablet (75 mg) by mouth once daily. Do not fill before April 23, 2024. 04/23/2024 ActiveStart: 04-14-2024 End: 48-14-5477bexi 1 tablet by mouth once dailyclopidogrel (Plavix) 75 mg tablet Indications: Cervical radiculopathy Take 1 tablet (75 mg) by mouth once daily. Do not fill before April 14, 2024. 04/14/2024 04/10/2024 Discontinued Start: 05-07-2023 End: 17-27-0574livv 1 tablet by mouth once dailyClopidogrel (Plavix) 75 mg tablet Discontinued 75 MG PO Daily August 02, 2023 12:00am January 23, 2024 1:33pm FreeTextSi tablet Orally Once a day; Note: Source Status: Taking; Provider: Darling Camara ( )cyclobenzaprine hydrochloride 10 mg oral tablet (20 sources)Muscle RelaxantStart: 82-16-8221zoqc 1 tablet by mouth three times daily as needed for muscle spasmscyclobenzaprine (Flexeril) 10 mg tablet Indications: muscle spasm Take 1 tablet (10 mg) by mouth 3 times a day as needed for muscle spasms for up to 7 days. 21 tablet 06/03/2024 ActiveStart: 04-30-2024 End: 26-96-0640vlrs 1 tablet by mouth every eight hours for muscle spasms cyclobenzaprine (Flexeril) 10 mg tablet Indications: Muscle spasms of neck Take 1 tablet (10 mg) bymouth every 8 hours if needed for muscle spasms. 90 tablet 04/30/2024 ActiveStart: 04-09-2024 End: 03-38-6944lkyn 1 tablet by mouth three times daily as needed for muscle spasmscyclobenzaprine (Flexeril) 10 mg tablet Indications: muscle spasm Take 1 tablet (10 mg) by mouth 3 times a day as needed for muscle spasms for up to 7 days. 21 tablet 04/17/2024 ActiveStart: 03-21-2023 End: 46-58-2442wfiy 1 tablet by mouth three times daily as needed for muscle spasmsCyclobenzaprine 10 mg tablet Discontinued 10 MG PO Three times daily as needed for Muscle Spasm 10 0 March 20, 2023 11:00pm May 07, 2023 8:22am0.4 ml enoxaparin sodium 100 mg/ml prefilled syringe (1 source)Low Molecular Weight HeparinStart: 67-92-1892llpnia 40 mg by subcutaneous injection every twenty-four [...] 0.2 mg/ml prefilled syringe (3 sources)Opioid AgonistStart: 40-47-3631wbpa 0.2 mg intravenously every four hours as [...] with radiology test) (20 sources)Start: 11-02-2023 End: 73-24-9535nj contrast (will be provided with radiology test) [...] Each 0 11/02/2023 11/03/2023 ActiveStart: 11-02-2023 End: 54-77-2901lnmxgt 1 dose intravenously once, then inject 1 [...] Each 0 11/02/2023 11/02/2023 ExpiredStart: 09-20-2022 End: 78-68-5545dnkizz 1 dose intravenously onceiv contrast (will be [...] Each 0 09/20/2022 09/21/2022 ActiveStart: 10-30-2021 End: 36-15-4272icjvve 1 dose intravenously once, then inject 1 [...] Each 0 10/30/2021 10/30/2021 ActiveStart: 10-30-2021 End: 50-45-2724hh contrast (will be provided with radiology test) [...] 1 Each 0 10/30/2021 10/31/2021 Active Start: 63-11-4417bf contrast (will be provided with radiology test) [...] administration guidelines link. 1 Each 03/15/2020 ActiveStart: 69-20-1071tt contrast (will be provided with radiology test) [...] day ActiveMultivitamin (Multiple Vitamins) tablet (20 sources)Start: 61-30-8243nulr 1 tablet by mouth once dailyMultivitamin (Multiple Vitamins) tablet Active 1 TAB PO Daily August 02, 2023 12:00am Complies with drug therapyStart: 77-12-4739hekz 1 tablet by mouth once daily Start: 34-32-3525ckto 1 tablet by mouth once dailyMultivitamin (Multiple Vitamins) tablet Active 1 TAB PO Daily August 02, 2023 1:00am Complies with drug therapyStart: 31-30-3330kbnp 1 tablet by mouth once dailyMultivitamin (Multiple Vitamins) tablet Active 1 TAB PO Daily August 02, 2023 1:00am Start: 50-71-7609zzos 1 tablet by mouth once dailyMultivitamin (Multiple [...] by mouth once daily.Naloxone (1 source)Opioid AntagonistStart: 85-67-0573cajOMXCTE hydrochloride 10 mg oral tablet (3 sources)Opioid AgonistStart: 76-91-6846saym 1 tablet by mouth every four hours as neededStart: 08-38-5992uorg 1 tablet by mouth every four hours as neededStart: 20-55-2379knwf 1 tablet by mouth every four hours as pxouzd40 mg, oral, Every 4 hours PRN, pain severe (7-10), first line, Starting on Sun04/09/24 at 1857, Phase II/On Unit, If ordered PRN for pain, nurse is permitted to administer this medication for higher pain scores based on patient preference? Yespantoprazole 40 mg delayed release oral tablet (16 sources)Proton Pump InhibitorStart: 96-85-2906gzpj 1 tablet by mouth twice dailyPantoprazole 40 mg tablet,delayed release (DR/EC) Active 40 MG PO Twice daily 60 30 11 November 17, 2024 1:10pm Complies with drug therapyStart: 11-05-2024 End: 66-13-7404rkkn 1 tablet by mouth once daily at bedtimePantoprazole 40 mg tablet,delayed release (DR/EC) Discontinued 40 MG PO Daily at bedtime 56 56 3 November 04, 2024 11:00pm November 17, 2024 1:16pmpolyethylene glycol 3350 20979 mg powder for oral solution (1 source)Osmotic LaxativeStart: g, oral, 2 times daily, First dose on Sun04/09/24 at 2100, Phase II/On Unit, Bowel Regimen - for prevention of constipation.tiZANidine 4 mg oral capsule (20 sources)Central alpha-2 Adrenergic AgonistStart: 67-11-2740kayr 1 capsule by mouth twice daily as neededTizanidine 4 mg capsule Active 4 MG PO Twice daily as needed February 18, 2025 11:00pm Complies with drug therapyStart: 08-29-2022 End: 75-98-2187azpg 1 tablet by mouth once daily at bedtimeTizanidine (Zanaflex) 4 mg tablet Discontinued 4 MG PO Daily at bedtime August 02, 2023 12:00am December 03, 2023 9:58am FreeTextSi tablet as needed Orally at bedtime; Note: Source Status: Taking; Provider: Satish Howardtart: 04-17-2022 End: 72-78-1148acdm 1 capsule by mouth twice daily as neededTizanidine 4 mg capsule Discontinued 4 MG PO Twice daily as needed for muscle spasticity 14 0 April 16, 2022 11:00pm July 17, 2022 8:02amStart: 04-06-2022 End: 04-27-7372xysq 2 tablets by mouth at bedtimeTizanidine 4 mg tablet Discontinued 8 MG PO Bedtime April 05, 2022 11:00pm August 02, 2023 1 2:50pmStart: 04-06-2022 End: 44-94-0730tzoa 8 mg by mouth at bedtimeTizanidine Discontinued 8 MG PO Bedtime April 06, 2022 12:00am August 02, 2023 1:50pmStart: 04-06-2022 take 1 tablet by mouth every twenty-four hours as neededtiZANidine (ZANAFLEX) 4 mg tablet Take 4 mg by mouth at bedtime as needed. 0 08/29/2022 ActiveStart: 07-29-2822nwWKRdrywt HCl - 4 MG Oral Tablet Quantity: [...] Central Nervous System Stimulant, MethylxanthineStart: 08-31-2022 End: 24-39-0220xkil 1 tablet by mouth every four to [...] oral tablet (20 sources)Opioid AgonistStart: 05-07-2023 End: 46-54-3335zxvl 1 tablet by mouth twice daily as needed for pain Acetaminophen-Codeine 300-30 mg tablet Discontinued 1 TAB PO Twice daily as needed for Pain May 07, 2023 12:00am August 02, 2023 12:44pm acetaZOLAMIDE 250 mg oral tablet (20 sources)Carbonic Anhydrase InhibitorStart: 08-31-2022 End: 43-98-7737ilyv 1 tablet by mouth once daily in the morning, then take 2 tablets by mouth at bedtimeacetaZOLAMIDE (DIAMOX) 250 mg tablet take 1 tablet by mouth every morning and AFTERNOON and 2 at bedtime as directed 0 08/31/2022 Active End: 00-21-1824hjwc 1 tablet by mouth every twenty-four hoursacetaZOLAMIDE (Diamox) 250 mg tablet Take by mouth once every 24 hours. 04/10/2024 Discontinued (Therapy completed)take 1 tablet by mouth every twelve hours acetaZOLAMIDE 125 MG 1 tablet Orally Twice a day ActiveComment on above:take 1 tablet by mouth every morning and AFTERNOON and 2 at bedtime as directed [id number] 200 actuat albuterol 0.09 mg/actuat metered dose inhaler (20 sources)beta2-Adrenergic AgonistStart: 09-20-2024 End: 25-96-9619Lmhpoudcw Sulfate 90 mcg/actuation HFA aerosol inhaler Discontinued 1 INH INHALATION Every 4 hours as needed for shortness of breath September 19, 2024 11:00pm October 06, 2024 1:05pmStart: 02-72-2161pucx 2 puff(s) by inhalation every four hoursalbuterol HFA 90 mcg/act inhaler Inhale 2 puffs every 4 (four) hours if needed 04/10/2024 ActiveStart: 12-88-9603oens 2 puff(s) by inhalation every four hours for wheezingalbuterol 90 mcg/actuation inhaler Indications: Cervical radiculopathy Inhale 2 puffs every 4 hoursif needed for wheezing or shortness of breath. 18 g 11 04/10/2024 ActiveStart: 04-09-2024 Start: 08-02-2023 End: 34-30-9083djin 1 puff(s) by inhalation every four hours as neededAlbuterol Sulfate 90 mcg/actuation HFA aerosol inhaler Discontinued 1 PUFF INHALATION Every 4 hoursFebr2023 12:00am August 02, 2023 12:45pm FreeTextSi puff as needed Inhalation every 4 hrs; Note: Source Status: Start; Refills: 1; Provider: Darling Camara RStart: 07-02-2023 End: 20-77-7348sixa 2 puff(s) by inhalation every four hoursalbuterol 90 mcg/actuation inhaler Inhale 2 puffs every 4 hours if needed. 07/02/2023 04/10/2024 Discontinued (Therapy completed)Start: 24-42-0986odkz 2 puff(s) by inhalation every four hoursalbuterol HFA 90 mcg/act inhaler Inhale 2 puffs every 4 (four) hours if needed 0 07/02/2023 ActiveStart: 54-52-0341sgnw 1 puff(s) by inhalation every four hours as neededAlbuterol Sulfate HFA 108 (90 Base) MCG/ACT 1 puff as needed Inhalation every 4 hrs Jun, ActiveALPRAZolam 0.25 mg oral tablet (20 sources)BenzodiazepineStart: 01-31-2024 End: 59-27-4307sdka 1 tablet by mouth once dailyAlprazolam (Xanax) 0.25 mg tablet Discontinued 0.25 MG PO Daily 30 0 January 30, 2024 11:00pm April 01, 2024 10:01am Anxiety and depression Anxiety disorder, unspecified Depression, unspecifiedStart: 44-37-6792ysou 1 tablet by mouth once daily as neededALPRAZolam (XANAX) 0.25 mg tablet Take 0.25 mg by mouth once daily as needed. 0 09/12/2021 Activetake 1 tablet by mouth every twelve hoursALPRAZolam 0.25 MG 1 tablet Orally Twice a day prn ActiveComment on above:Take 0.25 mg by mouth once daily as needed.amLODIPine 10 mg oral tablet (20 sources)Dihydropyridine Calcium Channel BlockerStart: 02-01-2024 End: 29-92-0455bcts 1 tablet by mouth once dailyAmlodipine 10 mg tablet Discontinued 10 MG PO Daily April 01, 2024 10:02am September 29, 2024 2:11pmStart: 11-29-2023 End: 10-08-3683ymav 1 tablet by mouth once dailyAmlodipine 10 mg tablet Discontinued 0 .ROUTE .COMPLEX 90 0 November 29, 2023 11:15am February 01, 2024 10:05am take 1 tablet orally dailyStart: 11-29-2023 End: 76-19-9933bonv 1 tablet by mouth once dailyAmlodipine Discontinued 0 .ROUTE .COMPLEX 90 November 29, 2023 12:15pm February 01, 2024 11:05am take1 tablet orally dailyStart: 32-74-8405iuzk 1 tablet by mouth once dailyAmlodipine Active 0 .ROUTE .COMPLEX 90 November 29, 2023 12:15pm take 1 tablet orally dailyStart: 09-05-2023 End: 17-24-6148lrzr 1 tablet by mouth once dailyAmlodipine 10 mg tablet Discontinued 10 MG PO Daily 30 30 2 September 04, 2023 11:00pm November 29, 2023 11:15amStart: 03-15-2023 End: 10-64-1561aszn 1 tablet by mouth once dailyAmlodipine 5 mg tablet Discontinued 5 MG PO Daily August 02, 2023 12:00am September 05, 2023 1:21pm FreeTextSi tablet Orally Once a day; Note: Source Status: Continue; Provider: Darling Camara Ramoxicillin 875 mg / clavulanate 125 mg oral tablet (20 sources)Penicillin-class AntibacterialStart: 09-20-2024 End: 44-43-8049qgik 1 tablet by mouth twice dailyAmoxicillin-Pot Clavulanate 875-125 mg tablet Discontinued 1 TAB PO Twice daily 9 September 191:00pm October 06, 2024 1:05pmStart: 02-26-2023 End: 69-65-5553suyn 1 tablet by mouth twice dailyAmoxicillin-Pot Clavulanate 875-125 mg tablet Discontinued 1 TAB PO Twice daily February 25, 2023 11:00pm May 07, 2023 8:49fxXlx9984-Rvs Mbe-Qgxz-Cca-Asb-C (11 sources)Osmotic Laxative, Vitamin CStart: 10-10-2024 End: 52-20-8222Pun8334-Sod Iqc-Wcbq-Dkg-Asb-C (Plenvu) 140-9-5.2 gram powder in packet, sequential Discontinued 0 PO .COMPLEX 3 1 October 09, 2024 11:00pm October 24, 2024 10:48am POStart: 10-10-2024 End: 08-66-3813Hhg8244-Sod Hcf-Gnxc-Tbi-Asb-C (Plenvu) 140-9-5.2 gram powder in packet, sequential Discontinued 0 PO .COMPLEX 3 October 10, 2024 12:00am October 24, 2024 11:48am POStart: 02-62-4839Nne0755-Sod Jam-Dwan-Jlq-Asb-C (Plenvu) 140-9-5.2 gram powder in packet, sequential Active 0 PO .COMPLEX 3 October 10, 2024 12:00am POatorvastatin 10 mg oral tablet (20 sources)HMG-CoA Reductase InhibitorStart: 93-08-7511kpsj 1 tablet by mouth once dailyatorvastatin (LIPITOR) 10 mg tablet Take 10 mg by mouth once daily. 0 09/28/2021 ActiveStart: 39-75-1122Uctayviphpog Calcium 10 MG Oral Tablet Quantity: 90 Refills: 0 Ordered: 28-Sep-2021 DO Start : 28-Sep-2021 Active Comment on above:Take 10 mg by mouth once daily.azithromycin 250 mg oral tablet (20 sources)Macrolide AntimicrobialStart: 11-19-2024 End: 05-21-3944Eqeyxmjdhbdt (Zithromax Z-Slim) 250 mg tablet Discontinued 0 PO .COMPLEX 6 November 18, 2024 11:00pm February 19, 2025 10:11am For 250 mg dose pack: take 500 mg today (day 1), then 250 mg for 4 days (days 2-5) POStart: 09-20-2024 End: 59-07-1724buig 2 tablets by mouth once dailyAzithromycin 250 mg tablet Discontinued 250 MG PO Daily 4 4 0 September 19, 2024 11:00pm October 06, 2024 1:06pm start on day 2 of therapyStart: 56-37-4204Ykwrmkvvj Z-Slim 250 MG as directed Orally as directed 1 pack 15 Jun, 2024 ActiveStart: 05-12-1280Cvjfdftgp Z-Slim 250 MG as directed Orally Nov, ActiveStart: 11-02-2022 End: 12-95-5007aqupowvuvvuu (ZITHROMAX) 250 mg tablet Take by mouth as directed. TAKE 2 TABLETS BY MOUTH TODAY, THEN TAKE 1 TABLET DAILY FOR 4 DAYS 11/02/2022 11/02/2023 Discontinued (Discontinued by Patient)Start: 14-03-0722Foaaanlxz Z- Slim 250 MG as directed Orally Jul, ActiveStart: 48-72-7985Mnoznudjt Z- Slim 250 MG as directed Orally Feb, ActiveStart: 60-84-6868Iwmqjnunx Z- Slim 250 MG 2 tablet on the first day, then 1 tablet daily for 4 days Orally Once a day for 5 day(s) Nov, Not-TakingStart: 91-87-5355Utikfaymu Z-Slim 250 MG 2 tablet on the first day, then 1 tablet daily for 4 days Orally Once a day 1 3 Jun, 2021 Activebetamethasone 0.5 mg/ml / clotrimazole 10 mg/ml topical cream (20 sources)Azole Antifungal, CorticosteroidStart: 03-08-2023 End: 44-16-7710Whbuvrzwhdxh-Betamethasone 1-0.05 % cream Discontinued 1 APPLIC TOPICAL Twice daily August 02, 2023 12:00am August 02, 2023 12:47pm FreeTextSi application Externally Twice a day; Note: Source Status: Not- Taking\PRN; Refills: 1; Qty: 45 grams; Provider: Darling Leeulinumtoxina 200 unt injection (16 sources)Acetylcholine Release InhibitorStart: 07-20-2023 End: 44-90-0218Wxhzk 200u vial IJ Soln 200 units injection Indications: Spasmodic Torticollis Inject 400 units into neck muscles every 90 days 2 each 3 07/20/2023 01/08/2025 Discontinuedbrexpiprazole 1 mg oral tablet (20 sources)Atypical AntipsychoticStart: 08-02-2023 End: 12-99-3707gkzw 0.5 mg by mouth once dailyBrexpiprazole Discontinued 0.5 MG PO Daily August 02, 2023 2:09pm October 18, 2023 8:55amStart: 08-02-2023 End: 62-14-0038akff 1 tablet by mouth once dailyBrexpiprazole 1 mg tablet Discontinued 0.5 MG PO Daily August 02, 2023 1:09pm October 18, 2023 7:55am Start: 80-87-8021shst 1 tablet by mouth every twenty-four hoursRexulti 1 MG 1 tablet Orally Once a day samples provided May, ActiveStart: 05-31-2023 take 1 tablet by mouth every twenty-four hoursRexulti 0.5 MG 1 tablet Orally Once a day for 7 days samples provided May, Activebupivacaine hydrochloride 5 mg/ml injectable solution (18 sources)Amide Local AnestheticStart: 03-24-2025 End: 46-36-4692axteeialuev (Marcaine) 0.5 % injection 5 mgStart: 03-24-2025 End: 88-96-1162rveajyespmq (Marcaine) 0.5 % injection 5 mgStart: 03-24-2025 End: mg, Injection, Once, On Sun03/24/25 at 1415, For 1 doseStart: 03-24-2025 End: mg, Injection, Once, On Sun03/24/25 at 1415, For 1 doseStart: 02-17-2025 End: 75-76-1013lrfwpraoyaz (Marcaine) 0.5 % injection 5 mgStart: 02-17-2025 End: mg, Injection, Once, On Sun02/17/25 at 1345, For 1 doseStart: 12-30-2024 End: 75-25-7242ydwoutadgoi (Marcaine) 0.5 % injection 5 mgStart: 12-30-2024 End: mg, Injection, Once, On Sun12/30/24 at 1615, For 1 doseStart: 11-19-2024 End: 26-56-4855xwtetgtxkba (Marcaine) 0.5 % injection 5 mgStart: 11-19-2024 End: mg, Injection, Once, On Sun11/19/24 at 1315, For 1 doseStart: 09-24-2024 End: 99-00-0112cxuocuwgmbr (Marcaine) 0.5 % injection 5 mgStart: 09-24-2024 End: 55 mg (1 mL), Injection, Once, On Sun09/24/24 at 1045, For 1 dose Start: 08-05-2024 End: 93-67-3386xaoelqewmoz (Marcaine) 0.5 % injection 5 mgStart: 08-05-2024 End: 55 mg (1 mL), Injection, Once, On Sun08/05/24 at 1545, For 1 dose Start: 07-03-2024 End: 79-43-1015bnkzwfeqrgp (Marcaine) 0.5 % injection 5 mgStart: 07-03-2024 End: mg (1 mL), Injection, Once, On Sun07/03/24 at 1045, For 1 dose Start: 05-22-2024 End: 45-55-8248ftpzhczolrz (Marcaine) 0.5 % injection 5 mgStart: 05-22-2024 End: mg (1 mL), Injection, Once, On Sun05/22/24 at 1330, For 1 dose 12 hr buPROPion hydrochloride 150 mg extended release oral tablet (10 sources)AminoketoneStart: 02-28-2019 End: 62-16-5089judx 1 tablet by mouth twice dailybuPROPion SR (WELLBUTRIN SR) 150 mg 12 hr tablet Take 1 tablet by mouth twice daily. 60 tablet 2 02/28/2019 10/17/2022 DiscontinuedComment on above:Take 1 tablet by mouth twice daily. dexamethasone phosphate 4 mg/ml injectable solution (20 sources)CorticosteroidStart: 03-24-2025 End: 68-65-0981gadHQZYPowwwb sod phos (Decadron) injection 4 mgStart: 03-24-2025 End: mg (1 mL), Injection, Once, On Sun03/24/25 at 1415, For 1 dose Start: 02-17-2025 End: 44-61-6091ngiWMXECvhyzn sod phos (Decadron) injection 4 mgStart: 02-17-2025 End: mg (1 mL), Injection, Once, On Sun02/17/25 at 1345, For 1 dose Start: 12-30-2024 End: 91-47-2793qkvPKZGLsoghl sod phos (Decadron) injection 4 mgStart: 12-30-2024 End: 54 mg (1 mL), Injection, Once, On Sun12/30/24 at 1615, For 1 dose Start: 11-19-2024 End: 55-59-0177sdjXQNNFdiezg sod phos (Decadron) injection 4 mgStart: 11-19-2024 End: mg (1 mL), Injection, Once, On Sun11/19/24 at 1315, For 1 dose Start: 09-24-2024 End: 53-36-8288dcbYCVCOmqvth sod phos (Decadron) injection 4 mgStart: 09-24-2024 End: 54 mg (1 mL), Injection, Once, On Sun09/24/24 at 1045, For 1 dose Start: 08-05-2024 End: 59-10-6495mklJDKWLybtxa sod phos (Decadron) injection 4 mgStart: 08-05-2024 End: 54 mg (1 mL), Injection, Once, On Sun08/05/24 at 1545, For 1 dose Start: 07-03-2024 End: 05-21-3482mynMUIKXzlmat sod phos (Decadron) injection 4 mgStart: 07-03-2024 End: 54 mg (1 mL), Injection, Once, On Sun07/03/24 at 1045, For 1 dose Start: 05-22-2024 End: 74-95-3800okfNMZCAnsoga (Decadron) injection 4 mgStart: 05-22-2024 End: 55-06-0165hewvod 4 mg by intramuscular injection once4 mg, Intramuscular, Once, On Sun05/22/24 at 1330, For 1 doseStart: 04-09-2024 End: 10-24-94358 mg, intravenous, Once, On Sun04/09/24 at 2215, For 1 dose Start: 73-19-3421Poyqgusccjxvt Active MG PO December 03, 2023 12:00amStart: 12-03-2023 End: 71-73-5439Kyvumjjcfcuzq 2 mg tablet Discontinued MG PO December 02, 2023 11:00pm April 28, 2024 9:43amStart: 06-34-1078qnvRQPWCubplv (Decadron) 2 MG tablet Indications: Cervical radiculopathy , Cervical stenosis of spinal canal , Occipital neuralgia of left side 2mg 3 pills po X3 days,2 pills po daily X3 days , then 1 pill po daily X3 days then stop 9 days 18 pills 18 tablet 0 06/14/2023 Activedoxycycline hyclate 100 mg oral capsule (15 sources)Tetracycline-class DrugStart: 11-25-2024 End: 56-95-6340mgvs 1 capsule by mouth twice dailyDoxycycline Hyclate 100 mg capsule Discontinued 100 MG PO Twice daily 20 10 0 2024 11:00pm February 19, 2025 10:11amStart: 11-05-2018 End: 71-43-4571ctsu 1 capsule by mouth every twelve hoursdoxycycline [...] mg/ml auto-injector (5 sources)PCSK9 InhibitorStart: 10-27-2024 End: 03-90-3153vnoobs 140 mg by subcutaneous injection every other week Evolocumab (Repatha Sureclick) 140 mg/mL pen injector Discontinued 140 MG SUBCUT EVERY 2 WEEKS 6 90October 26, 2024 11:00pm November 03, 2024 8:56amEvolocumab (Repatha Sureclick) 140 mg/mL pen injector (3 sources)Start: 10-27-2024 End: 39-60-4807jmjomd 140 mg by subcutaneous injection every other week Evolocumab (damasonae Perrysashageorge) 140 mg/mL pen injector Discontinued 140 MG SUBCUT EVERY 2 WEEKS 6 90May 2024 12:00am November 03, 2024 9:56amezetimibe 10 mg oral tablet (20 sources)Dietary Cholesterol Absorption InhibitorStart: 11-05-2023 End: 71-81-5310gqhe 1 tablet by mouth once dailyEzetimibe 10 mg tablet Discontinued 0 .ROUTE .COMPLEX 90 November 05, 2023 9:42am April 28, 2024 9:44am take 1 tablet by mouth once dailyStart: 09-05-2023 End: 44-42-1334Wodwvoohu Discontinued MG PO September 05, 2023 12:00am September 05, 2023 1:34pmStart: 06-08-2023 End: 17-37-7059nrab 1 tablet by mouth once dailyEzetimibe (Zetia) 10 mg tablet Discontinued 10 MG PO Daily August 26, 2024 11:00pm August 27, 2024 3:02pm Start: 05-15-2023 End: 74-46-0767qdwr 1 tablet by mouth every weekEzetimibe 10 mg tablet Discontinued MG PO August 02, 2023 12:00am August 02, 2023 12:47pm Fr eeTextSi tablet Orally 2 days per week; Note: Source Status: Not-Taking\PRN; Provider: Kamla Vyas WStart: 28-05-1734kqsb 1 tablet by mouth every twenty- four hoursEzetimibe 10 MG 1 tablet Orally Once a day for 90 days Apr, Activegabapentin 100 mg oral capsule (20 sources)Anti-epileptic AgentStart: 08-02-2023 End: 05-92-9775wnyn 1 capsule by mouth once dailyGabapentin 100 mg capsule Discontinued 100 MG PO Daily August 02, 2023 12:00am August 02, 2023 12:47pm FreeTextSi capsule Orally Once a day; Note: Source Status: Not- Taking\PRN; Provider:Darling Camara ( )Start: 04-16-2023 End: 20-76-3964bybg 1 capsule by mouth three times dailyGabapentin 300 mg capsule Discontinued 300 MG PO Three times daily May 07, 2023 12:00am August 02, 2023 12:47pmStart: 02-27-2019 End: 15-27-8859jese 1 capsule by mouth three times dailygabapentin [...] injection 30 mL (1 source)Start: 12-13-2023 End: 39-60-1819klkcyt 30 mL intravenously once30 mL, intravenous, Once in imaging, Starting on [facility] 12/13/23 at 0817, For 1 dose, Administer undiluted as rapid I.V. bolus injectionhydrOXYzine hydrochloride 25 mg oral tablet (20 sources)AntihistamineStart: 05-26-2022 End: 49-29-4130fxhb 1-2 tablets by mouth at bedtime as neededHydroxyzine Hcl 25 mg tablet Discontinued MG PO August 02, 2023 12:00am September 05, 2023 12:37pm FreeTextSi-2 tablets Orally HS as needed; Note: Source Status: Taking; Provider: Darling Camara RComment on above:take 1 to 2 tablets by mouth at bedtime if neededibuprofen 800 mg oral tablet (20 sources)Nonsteroidal Anti-inflammatory DrugStart: 08-02-2023 End: 75-50-0099wmdl 1 tablet by mouth three times daily as needed for pain Ibuprofen 800 mg tablet Discontinued 800 MG PO Three times daily as needed for pain September 05, 2023 12:35pm October 06, 2024 1:06pm FreeTextSi tablet with food or milk as needed Orally Three times a day; Note: Source Status: TakingPRN; Provider: Darling Camara ( )Start: 04-17-2022 End: 03-04-3642cmjg 1 tablet by mouth every eight hours [...] capsule (20 sources)Nonsteroidal Anti-inflammatory DrugStart: 08-02-2023 End: 37-66-0133ucwh 1 capsule by mouth once daily at mealtimeIndomethacin 75 mg capsule, extended release Discontinued 75 MG PO Daily August 02, 2023 12:00am August 02, 2023 12:48pm FreeTextSi capsule with food Orally Once a day; Note: Source Status: Not-Taking\PRNprn; Provider: Darling Camara ( )Start: 07-17-2022 End: 46-85-9519wtzswqliewfw (INDOCIN) 25 mg capsule Indomethacin Active 25 MG PO Daily July 17, 2022 1:00am 07/17/2022 11/02/2023 Discontinued (Discontinued by Patient)Start: 07-17-2022 End: 73-85-2679ptmm 1 capsule by mouth once dailyIndomethacin 25 [...] ActiveKetorolac (20 sources)Nonsteroidal Anti-inflammatory Drug, Cyclooxygenase InhibitorStart: 33-09-7637Ufdusbf per 15 mg Jan, 2 mLlisinopril 10 mg oral tablet (20 sources)Angiotensin Converting Enzyme InhibitorStart: 10-18-2023 End: 04-89-9470rxlx 1 tablet by mouth once dailyLisinopril 10 mg tablet Discontinued 10 MG PO Daily 90 90 1 April 01, 2024 10:02am September 29, 2024 2:11pmStart: 09-05-2023 End: 03-53-8355qfgi 1 tablet by mouth once dailyLisinopril 5 mg tablet Discontinued 5 MG PO Daily 30 30 2 September 04, 2023 11:00pm October 18, 2023 8:30am take 2 tablets by mouth once dailylisinopril 5 mg tablet Take 2 tablets (10 mg) by mouth once daily. Activemeclizine hydrochloride 25 mg oral tablet (20 sources)AntiemeticStart: 04-29-2018 End: 39-75-8750znpl 1 tablet by mouth three times daily as needed for dizziness Meclizine 25 mg tablet Discontinued 25 MG PO Three times daily as needed for dizziness 30 0 April 29, 2018 12:00am April 06, 2022 3:26pm methocarbamol 750 mg oral tablet (20 sources)Muscle RelaxantStart: 05-21-2024 End: 32-58-6131ylbj 1 tablet by mouth once daily at bedtimeMethocarbamol 750 mg tablet Discontinued 750 MG PO Daily at bedtime July 03, 2024 12:00am September 20, 2024 10:05amStart: 12-03-2023 End: 71-44-7757Osfmsuayteopr 500 mg tablet Discontinued 500 MG PO December 03, 2023 9:58am April 28, 2024 9:45amStart: 12-03-2023 End: 16-39-5623Amvrirawkfwrp Discontinued MG PO December 03, 2023 12:00am December 03, 2023 10:59ammethylPREDNISolone 4 mg oral tablet (20 sources)CorticosteroidStart: 11-25-2024 End: 44-19-7403Xkpuzdigzsylkzhqwp 4 mg tablets,dose pack Discontinued 0 PO per package directions 2024 11:00pm February 19, 2025 10:11am PO PER PKG DIRStart: 11-19-2024 End: 13-54-6424dxcu 1 tablet by mouth onceMethylprednisolone (Medrol (Slim)) 4 mg tablets,dose pack Discontinued 0 PO per package directions November 18, 2024 11:00pm February 19, 2025 10:11am PO PER PKG DIR for 6 daysStart: 08-02-2023 End: 90-90-8800Kuuxiizbcoeamzhpja 4 mg tablets,dose pack Discontinued MG PO As Directed August 02, 2023 12:00am August 02, 2023 12:48pm FreeTextSig: as directed Orally as directed; Note: Source Status: Start1 pack; Refills: 0; Provider: Darling Camara RStart: 08-02-2023 End: 43-25-1009Bqvqseqzmvfvrcleff Discontinued MG PO As Directed August 02, 2023 1:00am August 02, 2023 1:48pm FreeTextSig: as directed Orally as directed; Note: Source Status: Start1 pack; Refills: 0; Provider: Darling Driver Start: 08-02-2023 End: 80-61-4241Pgtgspcdsbefuinjfc Discontinued MG PO As Directed August 02, 2023 12:00am August 02, 2023 12:48pm FreeTextSig: as directed Orally as directed; Note: Source Status: Start1 pack; Refills: 0; Provider: Darling Driver Start: 77-12-8711ttepwtDYPWKXFpjete 4 MG as directed Orally as directed 1 pack Jun, ActiveStart: 89-84-3567Rbuian 4 MG as directed Orally Feb, ActiveStart: 43-36-9471fxuqmcKQWBRAGsptte 4 MG as directed Orally Nov, Not-TakingStart: 19-24-9011nalyfnMMHELMOoqbws 4 MG as directed Orally as directed Jun, Activemirtazapine 15 mg oral tablet (20 sources)Start: 09-01-2022 End: 63-68-2335vchw 0.5 tablet by mouth once daily at bedtime as needed Mirtazapine 15 mg tablet Discontinued MG PO Daily at bedtime as needed September 05, 2023 12:35pm 2023 9:19am FreeTextSi/2 tablet at bedtime Orally Once a day; Note: Source Status: Taking; Provider: Darling Camara ( )Start: 09-01-2022 End: 01-49-6196xcvw 1 tablet by mouth once daily at bedtime as neededMirtazapine 15 mg tablet Discontinued 15 MG PO Daily at bedtime as needed for restless leg(s) October 29, 2023 9:18am October 06, 2024 1:06pmStart: 07-17-2022 End: 50-55-1481twml 1 tablet by mouth at bedtime as neededMirtazapine 7.5 mg Tablet Discontinued 7.5 MG PO Bedtime as needed for Insomnia July 17, 2022 12:00am August 02, 2023 12:49pmComment on above:Take by mouth daily at bedtime.montelukast 10 mg oral tablet (20 sources)Leukotriene Receptor AntagonistStart: 07-17-2022 End: 16-58-5605eofq 1 tablet by mouth once dailyMontelukast (Singulair) 10 mg tablet Discontinued 10 MG PO Daily August 02, 2023 12:00am August 02, 2023 1:10pm FreeTextSi tablet Orally Once a day; Note: Source Status: Taking; Provider:Darling Camara ( )Comment on above:Take 10 mg by mouth daily at bedtime.naproxen 500 mg oral tablet (20 sources)Nonsteroidal Anti-inflammatory DrugStart: 12-10-2017 End: 62-34-9104uujv 1 tablet by mouth twice daily at mealtimeNaproxen 500 mg tablet Discontinued 500 MG PO Twice daily December 09, 2017 11:00pm April 29, 2018 2:12pm administer with food or milk24 hr nicotine 0.875 mg/hr transdermal system (12 sources)Cholinergic Nicotinic AgonistStart: 08-14-2023 End: 54-61-7553lmdwh 1 dose transdermal route every twenty-four hoursnicotine [...] (20 sources)Angiotensin 2 Receptor BlockerStart: 05-07-2023 End: 26-11-6373Yrzpjxoint 20 mg tablet Discontinued MG May 07, 2023 12:00am August 02, 2023 12:50pmStart: 05-07-2023 End: 64-29-1895Kdwgplknbm Discontinued MG TABLET May 07, 2023 1:00am August 02, 2023 1:50pmondansetron 4 mg disintegrating oral tablet (14 sources)Serotonin-3 Receptor AntagonistStart: 10-06-2024 End: 72-68-3293wlru 1 tablet by mouth every eight hours as needed for nausea and vomitingOndansetron 4 mg tablet,disintegrating Discontinued 4 MG PO Every 8 hours as needed for nausea and vomiting 9 3 0 October 05, 2024 11:00pm October 24, 2024 10:48amStart: 93-50-2297bqwv 1 tablet by mouth every eight hours as needed ondansetron (Zofran) tablet 4 mgoxygen (O2) therapy (1 source)Start: 04-09-2024 End: 76-58-7391nyonrbpgzw, Continuous - Inhalation, First dose on Sun04/09/24 at 1715, Recovery (only), Device: Nasal Cannula, Rate in liters per minute: Other, Custom Value: 1-6 LPM, Keep O2 Sat Above: 92%pravastatin sodium 40 mg oral tablet (20 sources)HMG-CoA Reductase InhibitorStart: 11-05-2023 End: 92-66-0223qykv 1 tablet by mouth once dailyPravastatin 40 mg tablet Discontinued 0 .ROUTE .COMPLEX 90 1 August 27, 2024 3:02pm October 06, 2024 1:06pm take 1 tablet by mouth once dailyStart: 07-06-2023 End: 70-64-0461rmej 1 tablet by mouth once dailyPravastatin 40 mg tablet Discontinued 40 MG PO Daily October 28, 2023 11:00pm November 05, 2023 9:42amStart: 72-94-6907zxew 1 tablet by mouth every twenty-four hoursPravastatin Sodium 40 MG 1 tablet Orally Once a day for 90 days Apr, ActivepredniSONE 10 mg oral tablet (20 sources)Start: 03-21-2023 End: 63-44-2152Ozceybinvy 10 mg tablet Discontinued 60 MG PO Daily 30 March 20, 2023 11:00pm May 07, 2023 8:24am administer with food or milkStart: 03-21-2023 End: 46-53-7233bdcb 60 mg by mouth once daily at mealtimePrednisone Discontinued 60 MG PO Daily March 21, 2023 12:00am May 07, 2023 9:24am admin ister with food or milkStart: 04-06-2022 End: 86-80-5865yrmq 2 tablets by mouth once daily at mealtimePrednisone 20 mg tablet Discontinued 40 MG PO Daily April 05, 2022 11:00pm July 17, 2022 8:01am administer with food or milkStart: 04-06-2022 End: 54-93-7500pvmj 40 mg by mouth once daily at mealtimePrednisone Discontinued 40 MG PO Daily April 06, 2022 12:00am July 17, 2022 9:01am admin ister with food or milkpregabalin 50 mg oral capsule (20 sources)Start: 06-30-2024 End: 32-14-5078cwcf 1 capsule by mouth once dailyPregabalin 50 mg capsule Discontinued 50 MG PO Daily July 03, 2024 12:00am September 20, 2024 10:05am Start: 06-30-2024 End: 75-21-6477relt 1 capsule by mouth twice dailypregabalin (Lyrica) 50 mg capsule Indications: Status post cervical spinal fusion Take 1 capsule (50 mg) by mouth 2 times a day. 60 capsule 06/30/2024 Activepromethazine hydrochloride 25 mg oral tablet (20 sources)PhenothiazineStart: 04-29-2018 End: 16-03-5043pcbv 1 tablet by mouth every six hours as needed for nausea Promethazine 25 mg Tablet Discontinued 25 MG PO Q6H as needed for Nausea September 07, 2021 11:00pm April 06, 2022 3:26pmtake 1 tablet by mouth every twelve hoursPromethazine HCl 25 MG 1 tablet as needed Orally every 12 hrs Active rimegepant 75 mg disintegrating oral tablet (20 sources)Start: 04-06-2022 End: 93-04-3647Qyaobbigis (Nurtec Odt) 75 mg tablet,disintegrating Discontinued 75 MG PO Q48H April 05, 2022 11:00pm July 17, 2022 8:02amtake 1 tablet by mouth once dailyNurtec 75 MG 1 tablet on the tongue and allow to dissolve Orally Ever Other Day Activerosuvastatin calcium 5 mg oral tablet (20 sources)HMG-CoA Reductase InhibitorStart: 30-04-5621lqhv 1 tablet by mouth once dailyrosuvastatin (Crestor) 5 MG tablet Take 5 mg by mouth Daily 06/27/2023 ActiveStart: 05-31-2023 End: 80-37-5039rdmt 1 tablet by mouth every weekRosuvastatin 5 [...] topical cream (20 sources)Allylamine AntifungalStart: 12-03-2023 End: 25-65-1118Mudnaomchdw Hcl 1 % cream Discontinued APPLIC TOPICAL December 02, 2023 11:00pm September 20, 2024 10:05amStart: 95-13-6041Yjkwaevywkb Hcl Active APPLIC TOPICAL December 03, 2023 12:00amStart: 32-66-9208xcmwupltsqk (LamISIL AT) 1 % cream Indications: Tinea manuum Apply to the affected area on the hand, bid, 30 day supply 42 g 1 11/28/2023 Activetopiramate 100 mg oral tablet (1 source)take 1 tablet by mouth every twenty-four hoursTopamax 100 MG 1 tablet Orally Once a day Not-TakingToradol 30 mg/ml (20 sources)Start: 60-71-4617Eguxzfq 30 mg/ml Jun, 60 mgStart: 83-05-6413Rrsjqzc 30 mg/ml Aug, 60 mgTriamcinolone (20 sources)CorticosteroidStart: 17-21-9867BKHBMQD - 10 mg Jan, 1.5 cc24 hr divalproex sodium 250 mg extended release oral tablet (20 sources)Mood Stabilizer, Anti-epileptic AgentStart: 59-24-6969obur 1 tablet by mouth once dailydivalproex ER (DEPAKOTE ER) 250 mg 24 hr tablet Take 250 mg by mouth once daily. 0 09/28/2021 ActiveStart: 71-97-4290pjxn 1 tablet by mouth every twenty-four hoursDivalproex Sodium ER 250 MG Oral Tablet Extended Release 24 Hour Quantity: 90 Refills: 0 Ordered: 28-Sep-2021 DO Start : 28-Sep-2021 ActiveComment on above:Take 250 mg by mouth once daily.vortioxetine 5 mg oral tablet (4 sources)Start: 09-12-2021 End: 73-77-5766ogco 1 tablet by mouth every twenty-four hoursvortioxetine (TRINTELLIX) 5 mg tablet Take by mouth every 24 hours. 09/12/2021 11/03/2024 DiscontinuedStart: 93-18-4623estt 1 tablet by mouth every twenty-four hours Trintellix 5 MG 1 tablet Orally Once a day for 30 day(s) Samples Aug, Activezonisamide 25 mg oral capsule (9 sources)Anti-epileptic AgentStart: 10-18-2022 End: 43-62-9985tetlylclrb (ZONEGRAN) 25 mg capsule take 1 capsule [...] (20 sources)Abdominal pain; Translations: [Unspecified abdominal pain]Onset: 484357-57-2747VlbmmipxZenrbgco reactions (20 sources)Eczema; Translations: [Dermatitis, unspecified]EpisodicAnxiety disorders (20 sources)Anxiety; Translations: [Anxiety state, unspecified]Onset: 04-14-2021 Resolved: 71-31-9028NvidgtgIfesgt of brain and nervous system (20 sources)Glial tumor of brain; 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, unspecified]Onset: 10-13-2021 Resolved: 74-45-5767KdugspfBrwtlm of head and neck (20 sources)Squamous cell carcinoma of head and neck; 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 of head, face and neck]Onset: 90-88-7692AfchaamMehhpy of head and neck (20 sources)History of malignant neoplasm of head and/or neck; Translations: [Personal history of malignant neoplasm of unspecified site of lip, oral cavity, and pharynx]Onset: 001743-90-7111TsyxafllRizdkk; other and unspecified primary (3 sources)History of squamous cell carcinoma; Translations: [Personal history of malignant neoplasm of other sites]EpisodicCardiac dysrhythmias (20 sources)Cardiac arrhythmia; Translations: [Cardiac arrhythmia, unspecified] Onset: 19-50-5200PvmuctfYanwhjae (20 sources)Age-related nuclear cataract of right eye; Translations: [Age- related nuclear cataract, right eye]Onset: 192629-74-7586OlxfuyjSyklyoqxwt associated with dizziness or vertigo (20 sources)Lightheadedness; Translations: [Dizziness and giddiness]Onset: 04-74-3441GwirlkskUsscqrfihr disorders (20 sources)First degree atrioventricular block; Translations: [Atrioventricular block, first degree]Onset: [id number] atherosclerosis and other heart disease (20 sources)Coronary arteriosclerosis; Translations: [Atherosclerotic heart disease of [place] coronary artery without angina pectoris]Onset: 02-26-2024 66-08-9000UvsxeaoStykbecsw of lipid metabolism (20 sources)Hyperlipidemia; Translations: [Hyperlipidemia, unspecified]Onset: 09-19-2021 Resolved: 02-89-1041QujlacxDctjoztvqe disorders (9 sources)Gastroesophageal reflux disease; Translations: [Gastro-esophageal reflux disease without esophagitis]67-35-6373PsijcqrBkjqksskl hypertension (20 sources)Essential hypertension; Translations: [Essential (primary) hypertension]Onset: 46-58-7645RwucclpGukny and electrolyte disorders (13 sources)Dehydration; Translations: [Dehydration]51-07-1162JjhkqdwaPhuhgcyx (20 sources)Preglaucoma, unspecified, right eye; Translations: [Preglaucoma, unspecified]Onset: 897711-93-3510RyiqfllDbaagfeu; including migraine (20 sources)Migraine; Translations: [Migraine, unspecified, not intractable, without status migrainosus]Onset: 15-89-7139ZyjbrdtJlqsvvil; including migraine (20 sources)Headache; Translations: [Headache]EpisodicLymphadenitis (1 source)Enlarged lymph nodes, unspecifiedEpisodicMalignant neoplasm without specification of site (20 sources)Primary malignant neoplasm; Translations: [Malignant (primary) neoplasm, unspecified]Onset: 988418-22-4899DewygxjPjqt disorders (3 sources)Depressive disorder; Translations: [Depressive disorder, not elsewhere classified]ChronicOsteoarthritis (20 sources)Arthritis; Translations: [Unspecified osteoarthritis, unspecified site]Onset: 160218-77-0605BwpxdghJkjtdlzkifcw (20 sources)Senile osteoporosis; Translations: [Age-related osteoporosis without current pathological fracture]Onset: 034529-75-9413CtqfytgUifyg and unspecified benign neoplasm (2 sources)Acoustic neuroma; Translations: [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Other and unspecified benign neoplasm (2 sources)Melanocytic nevus of trunk; Translations: [Melanocytic nevi of trunk] 79-86-2081UxhynuvpIamfd and unspecified benign neoplasm (11 sources)Polyp of colon; Translations: [Polyp of colon]75-34-1175Qltjzdka Other circulatory disease (1 source)Presence of other vascular implants and graftsChronicOther circulatory disease (4 sources)Elevated blood-pressure reading, without diagnosis of hypertension Onset: 12-26-2021 Resolved: 85-49-2495MwdbwfrjGfnro circulatory disease (15 sources)Elevated blood pressure; Translations: [Elevated blood-pressure reading, without diagnosis of hypertension]EpisodicOther circulatory disease (1 source)Other specified symptoms and signs involving the circulatory and respiratory systemsEpisodicOther circulatory disease (2 sources)Spider nevus; Translations: [Nevus, non-neoplastic]20-61-5376Muziydcu Other connective tissue disease (3 sources)History of cervical spine fusion; Translations: [Arthrodesis status] 16-17-1814VvhrqlbsMrqbt connective tissue disease (1 source)Muscle spasm of cervical muscle of neck; Translations: [Other muscle spasm]44-24-1694BsiwfyumHyrbe ear and sense organ disorders (16 sources)Otalgia, left ear; Translations: [Left ear pain]EpisodicOther ear and sense organ disorders (11 sources)Bilateral tinnitus; Translations: [Tinnitus, bilateral]EpisodicOther ear and sense organ disorders (1 source)Tinnitus, bilateralEpisodicOther gastrointestinal disorders (9 sources)Altered bowel function; Translations: [Change in bowel habit] 35-38-9493HjdrclfmKsohz gastrointestinal disorders (9 sources)Dysphagia; Translations: [Dysphagia, unspecified]27-85-3961Esiahhgb Other gastrointestinal disorders (9 sources)Diarrhea; Translations: [Diarrhea, unspecified]37-62-4792Dhyrusfx Other gastrointestinal disorders (6 sources)Change in bowel habit; Translations: [Other symptoms involving digestive system]83-10-3857YyuxzaxcRfdts gastrointestinal disorders (6 sources)Dysphagia, unspecified; Translations: [Dysphagia, unspecified] 21-95-1985JysxhbveSfhkb hereditary and degenerative nervous system conditions (20 sources)Isolated cervical dystonia; Translations: [Spasmodic torticollis] Onset: 654800-25-7366HlrtndnZfgrz infections; including parasitic (20 sources)Personal history of other infectious and parasitic diseases; Translations: [History of COVID-19]04-23-3211OowlbpnrAvugc lower respiratory disease (20 sources)Solitary nodule of lung; Translations: [Solitary pulmonary nodule] EpisodicOther lower respiratory disease (20 sources)Productive cough ; Translations: [Productive cough]Onset: 10-16-2023 35-90-0715XouftiglMuyww nervous system disorders (3 sources)Demyelinating disease of central nervous system; Translations: [Other demyelinating diseases of central nervous system]ChronicOther nervous system disorders (20 sources)Mass lesion of brain; Translations: [Other specified disorders of brain]Onset: 353647-84-8748GxscbqbPfsey nervous system disorders (5 sources)Disorder of brain, unspecifiedOnset: 10-24-2021 Resolved: 58-23-8686YswivumPzupo nervous system disorders (2 sources)Raised intracranial pressure; Translations: [Benign intracranial hypertension]ChronicOther nervous system disorders (1 source)Benign intracranial hypertensionChronicOther nervous system disorders (1 source)Normal pressure hydrocephalus; Translations: [(Idiopathic) normal pressure hydrocephalus]ChronicOther nervous system disorders (1 source)(Idiopathic) normal pressure hydrocephalus; Translations: [NPH (normal pressure hydrocephalus) (HCC)]Onset: 80-26-1915TmuxxbrVgbgf nervous system disorders (20 sources)Brachial plexus disorder; Translations: [Brachial plexus disorders] Onset: 444280-05-8447QiqkjsuZqjzf nervous system disorders (20 sources)Ulnar neuropathy; Translations: [Lesion of ulnar nerve, unspecified upper limb]Onset: 135028-46-2350CsviieiLjvxx nervous system disorders (1 source)Lesion of brainstem; Translations: [Disorder of brain, unspecified] 31-49-5629NpshsoyYczcv nervous system disorders (4 sources)Other specified disorders of brain; Translations: [Other conditions of brain]67-37-3787HokxiolNkuwa nervous system disorders (20 sources)Central pontine myelinolysis; 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]Onset: 736108-95-5654RdgvlzpUfouf nervous system disorders (20 sources)Disorder of nerve root and/or plexus; Translations: [Other nerve root and plexus disorders]Onset: 112740-66-7727UbyxedhEsylq nervous system disorders (6 sources)Finding of sensation of upper limb; Translations: [Paresthesia of skin]EpisodicOther nervous system disorders (20 sources)Paresthesia of left lower limb; Translations: [Paresthesia of skin] Onset: 012472-96-3971HkszyjocYfgdd nervous system disorders (2 sources)Anesthesia of skinOnset: 01-30-2022 Resolved: 26-46-9280KmpebuklBojor nervous system disorders (20 sources)Burning sensation; Translations: [Other disturbances of skin sensation]Onset: 005775-05-0981LbcpubcrGtxaq nervous system disorders (1 source)Other disturbances of skin sensationEpisodicOther nervous system disorders (20 sources)Impairment of balance; Translations: [Other abnormalities of gait and mobility]Onset: 399301-54-2875GvunvbdvYywnk nervous system disorders (6 sources)Other abnormalities of gait and mobility; Translations: [Other symptoms involving nervous and musculoskeletal systems]EpisodicOther nervous system disorders (1 source)Acute postoperative pain; Translations: [Other acute postprocedural pain]78-44-0137EennistaCerek non-epithelial cancer of skin (20 sources)Squamous cell carcinoma of skin; Translations: [Squamous cell carcinoma of skin, unspecified]75-75-5322YtgyupvpIbtdjuh on above:head/neckOther non-traumatic joint disorders (20 sources)Joint pain; Translations: [Pain in unspecified joint]08-02-2023 EpisodicOther non-traumatic joint disorders (1 source)Pain in unspecified jointEpisodicOther non-traumatic joint disorders (2 sources)Pain in right shoulder; Translations: [Pain in joint, shoulder region]50-64-9383RfwvgdvgKtwgh nutritional; endocrine; and metabolic disorders (3 sources)Weight loss; Translations: [Loss of weight]EpisodicOther nutritional; endocrine; and metabolic disorders (3 sources)H/O: metabolic disorder; Translations: [Personal history of other endocrine, metabolic, and immunity disorders]EpisodicOther nutritional; endocrine; and metabolic disorders (8 sources)Unexplained weight loss ; Translations: [Abnormal weight loss] 85-75-9345MqigazrvXxwma nutritional; endocrine; and metabolic disorders (3 sources)Abnormal weight loss; Translations: [Loss of weight]10-10-2024 EpisodicOther screening for suspected conditions (not mental disorders or infectious disease) (20 sources)Encounter for screening for malignant neoplasm of prostate; Translations: [Magnetic resonance imaging of brain abnormal]Onset: 09-19-2021 Resolved: 86-87-8194KiwbnpivCdswo skin disorders (20 sources)Mass of neck; Translations: [Localized swelling, mass and lump, neck]EpisodicOther skin disorders (20 sources)Vesicular eczema; 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]]Onset: 929659-29-5199QzwxnwqpEeblj skin disorders (1 source)Dyshidrosis [pompholyx]EpisodicOther skin disorders (1 source)Finding of neck region; Translations: [Localized swelling, mass and lump, neck]27-02-7564OwextmdvOvhbn skin disorders (2 sources)Seborrheic keratosis; Translations: [Other seborrheic keratosis] 06-87-1278HpbzfeayFqttj skin disorders (2 sources)Inflamed seborrheic keratosis; Translations: [Inflamed seborrheic keratosis]36-47-1769TrydiebxNarft skin disorders (2 sources)Actinic keratosis; Translations: [Actinic keratosis]01-08-2025 EpisodicOther upper respiratory disease (3 sources)Other specified disorders of nose and nasal sinusesOnset: 06-29-2021 Resolved: 74-83-0098VevhpjvkZufoz upper respiratory disease (4 sources)Nasal sinus problem; Translations: [Other specified disorders of nose and nasal sinuses]EpisodicOther upper respiratory infections (13 sources)Sinusitis; Translations: [Chronic sinusitis, unspecified]Onset: 06-30-2021 Resolved: 55-86-0861ZmcnxvqJvtzp upper respiratory infections (20 sources)Acute pharyngitis, unspecified; Translations: [Acute sinusitis] Onset: 16-33-6053BfdpmnflJqhkjr media and related conditions (20 sources)Acute transudative otitis media; Translations: [Other acute nonsuppurative otitis media, left ear]Onset: 124748-25-2978Tolzqzuy Peripheral and visceral atherosclerosis (20 sources)Intermittent claudication; Translations: [Peripheral vascular disease, unspecified]Onset: 47-79-3664WxmchyoQrfeghhmg (except that caused by tuberculosis or sexually transmitted disease) (14 sources)Pneumonia; Translations: [Pneumonia, unspecified organism]09-20-2024 EpisodicResidual codes; unclassified (5 sources)Postprocedural state finding; Translations: [Presence of other specified functional implants]30-49-0153EuskrsaPpfiqnnu codes; unclassified (20 sources)Insomnia; Translations: [Insomnia, unspecified]Onset: 12-10-2022 40-89-0263FeuudewvSsjxtnfm codes; unclassified (2 sources)Insomnia, unspecifiedEpisodicResidual codes; unclassified (20 sources)History of cervical discectomy; Translations: [Other specified postprocedural states]75-77-4688QsdkiynfKufkvnnv codes; unclassified (4 sources)Other specified postprocedural states; Translations: [Other postprocedural status]20-45-3837JpgexamdGqiyknsr codes; unclassified (8 sources)Early satiety; Translations: [Early satiety]40-25-1293Rajvfdav Residual codes; unclassified (3 sources)Early satiety; Translations: [Early satiety]75-96-9820Oasuoeyx Secondary malignancies (3 sources)Metastasis to head and neck lymph node; Translations: [Secondary and unspecified malignant neoplasmof lymph nodes of head, face, and neck]Chronic Secondary malignancies (2 sources)Secondary malignant neoplastic disease; Translations: [Other malignant neoplasm without specification of site]ChronicSecondary malignancies (20 sources)Secondary malignant neoplasm of lymph node; Translations: [Secondary and unspecified malignant neoplasm of lymph node, unspecified]Onset: 12-10-2022 62-85-4216EhebzdqGjqnjronifg; intervertebral disc disorders; other back problems (20 sources)Cervical spondylosis; Translations: [Spondylosis without myelopathy or radiculopathy, cervical region]Onset: 72-63-8811JsrhsclJkydfihjwie; intervertebral disc disorders; other back problems (20 sources)Neck pain; Translations: [Cervicalgia]Onset: 12-05-2021 Resolved: 10-77-5775UpxiojjvUduyvqgif-related disorders (20 sources)Nicotine dependence with current use; Translations: [Nicotine dependence, unspecified, uncomplicated]Onset: 04-14-2021 Resolved: 02-73-0836YpxtrweKyierfw disorders (3 sources)Thyroid nodule; 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 Transient cerebral ischemia (20 sources)Transient cerebral ischemia; Translations: [Transient cerebral ischemic attack, unspecified]ChronicUnclassified (9 sources)Patient has spine surgeryOnset: 248569-33-2881Nbndcciahsxw (3 sources)History of cervical spine qazlxl51-94-1164Tpathiphazyq (2 sources)Post-op Spine Surgery; Translations: [Post-op Spine Surgery]Onset: 33-26-8748Bjnds infection (16 sources)Respiratory syncytial virus infection; Translations: [Other specified viral diseases]Onset: 75-05-6380Jwqvibvg Past or Other Problems Problem ClassificationProblemDateDocumented DateEpisodic/ChronicBlindness and vision defects (20 sources)Unspecified visual disturbance; Translations: [Visual disturbance] Onset: 01-30-2022 Resolved: 02-68-6670VajbktgxTjuzcqepipjr (except that caused by tuberculosis or sexually transmitted disease) (20 sources)Myelitis; Translations: [Myelitis, unspecified]Onset: 08-29-2023 46-81-0977DrqkukzeUejleihp; including migraine (3 sources)Headache; including migraineOnset: 11-01-2021 Resolved: 78-98-3825Xmmfubt and fatigue (20 sources)Asthenia; Translations: [Weakness]Onset: 858510-14-2353 EpisodicOther and unspecified benign neoplasm (20 sources)Schwannoma; Translations: [Benign neoplasm of peripheral nerves and autonomic nervous system, unspecified]Onset: 369122-23-9836QhuxeaefRqvbu connective tissue disease (20 sources)Muscle pain; Translations: [Myalgia, unspecified site]Onset: 501073-16-0985DyawvqyhNipbu connective tissue disease (20 sources)Pain in left arm; Translations: [Pain in left arm]Onset: 12-29-2022 84-65-6406MekxwtetIhbco connective tissue disease (20 sources)Spasm of cervical paraspinous muscle; Translations: [Other muscle spasm]Onset: 363350-42-9076AqbggljrUrwop connective tissue disease (20 sources)Radicular pain; Translations: [Neuralgia and neuritis, unspecified] Onset: 998066-88-3871FrcnbqsdPiqjj connective tissue disease (2 sources)Arthrodesis status; Translations: [Arthrodesis status]Onset: 95-67-8438ImhhblrlIlelw connective tissue disease (2 sources)Other muscle spasm; Translations: [Other muscle spasm]Onset: 13-18-9159MqoqamnyUjxjc gastrointestinal disorders (7 sources)Diarrhea, unspecified; Translations: [Diarrhea]Onset: 11-05-2024 13-40-9175JvdznzlgPhpuy lower respiratory disease (20 sources)Multiple nodules of lung; Translations: [Other nonspecific abnormal finding of lung field]Onset: 04-00-7647GpqwzcwzHwjno lower respiratory disease (1 source)Shortness of breath; Translations: [Shortness of breath]Onset: 88-44-1759BlrzklyeItqqe nervous system disorders (20 sources)Skin sensation disturbance; Translations: [Anesthesia of skin]Onset: 444438-58-8678XtjqthkxUeert nervous system disorders (2 sources)Other acute postprocedural pain; Translations: [Other acute postprocedural pain]Onset: 44-41-2681HopfefffTszuh non-traumatic joint disorders (20 sources)Pain in left shoulder; Translations: [Pain in joint, shoulder region]Onset: 17-06-8549ZcjjieppXlbtp upper respiratory disease (1 source)Nasal congestionOnset: 04-19-2021 Resolved: 01-75-2481OluikssqStolcfql codes; unclassified (1 source)Other general symptoms and signsOnset: 01-30-2022 Resolved: 23-53-2736JyzmsqxwPtcuyqaxtzgt (1 source)Pressure in head R51.9Onset: 12-26-2021 Resolved: 96-20-8954Htsduzposzyh (1 source)Cough R05.9Unclassified (1 source)Acute cough R05.1Unclassified (14 sources)Onset: 10-05-2023 Resolved: 34-13-803393455775-00-3194 Results Test NameValueInterpretationReference ImlvxPephyvws21fb [id number] returned phone call. Scheduled surgery for 06/03/25 and scheduled the pre op and post op appt.[facility]36Called and left message for patient to call back to discuss surgery date. Could have surgery on 06/03. Will need a pre op and post op appt scheduled as well. [address] [phone] would like NOÉ Bose to give him a call back [facility]jzLuzuyyakbdMary [facility]36Patient called and left telegraphic typewriter installer a message stating that his medical health researcher would be sending over the clearance for the blood thinners. Will be on the lookout in faxes for this.[address] [phone] and spoke to Dr Harvey's office. She did voice that they do not give out surgical clearances and would be faxing over the note and their policy regarding the refusal.[address] call [address] Harvey's office on Sunday as office is currently closed.[address] [phone] called into the office requesting to speak with Lidya. Patient was advised Lidya is currently in clinic and will follow up as she has time. Business Analyst Project Manager did read the information below to patient and patient verbalized understanding that currently we are going to request documents from medical health researcher, dr. Figueroa will review records and follow up once reviewed.[address] [phone], if the medical health researcher who prescribes this ASA and plavix will [...] a copy of the policy from his medical health researcher stating that they refuse to make recommendations. We can send a request for records and for a copy of the policy to Dr. Harvey's office.[facility]36Patient called in stating that Dr Harvey who prescribes his blood thinners does not do clearances anymore per his policy and that it is under the decision of the surgeon for the blood thinners. Patient states he would try asking his PCP if they would do a clearance for the blood thinners.[facility]36on [phone] faxed to Dr. Rodriguez [facility] HospitalMRI HEAD/BRAIN WO/W CONTRon 90-88-[place] [address] Magnetic Resonance Report Signed Patient: SHANTEL MELENDEZ MR#: [id number] : 1960 Acct:[id number] Age/Sex: 64 / M ADM Date: 04/03/25 Loc: LAB Attending Dr: OZIEL CADENA Ordering Physician: OZIEL CADENA Date of Service: 04/03/25 Procedure(s): MR head/brain wo/w con Accession Number(s): [id number] cc: OZIEL CADENA ; GRISELDA KRAUSE [place] [id number] Patient Name: SHANTEL MELENDEZ MRN: [id number] date: 1960 Sex: M Assigned Patient Location: LAB Current Patient Location: Accession/Order Number: [id number] Exam Date: 04/03/2025 13:45 Report Date: 04/07/2025 [...] Hutchins M.D. 04/07/2025 3:50 PM Dictation Location: [place] [address] Electronically authenticated by: [id number] Date: 04/07/2025 15:50 Dictated By: Gee Hutchins M.D. Signed By: 04/07/25 155 DD/ 49 TD/TT: Soil Field Technician:TBHRadiology, Radiologist, - 04/27/[address] [address] Magnetic Resonance Report Signed Patient: SHANTEL MELENDEZ MR#: [id number] : 1960 Acct:[id number] Age/Sex: 64 / M ADM Date: 04/03/25 Loc: LAB Attending Dr: OZIEL CADENA Ordering Physician: OZIEL CADENA Date of Service: 04/03/25 Procedure(s): MR head/brain wo/w con Accession Number(s): [id number] cc: OZIEL CADENA ; GRISELDA KRAUSE The [address] [address] Patient Name: SHANTEL MELENDEZ MRN: [id number] date: 1960 Sex: M Assigned Patient Location: LAB Current Patient Location: Accession/Order Number: [id number] Exam Date: 04/03/2025 13:45 Report Date: 04/07/2025 [...] Hutchins M.D. 04/07/2025 3:50 PM Dictation Location: [place] [address] Electronically authenticated by: [id number] Y Date: 04/07/2025 15:50 Dictated By: Gee Hutchins M.D. Signed By: 04/07/25 1553 DD/ 155 TD/TT: Soil Field Technician: TRENT HealthcareRadiology Study observation (narrative)[facility] HospitalI HEAD/BRAIN WO/W CONTROrdered By: Radiologist Radiology on 20-22-5019ZHBS [place] Work Phone: [phone] [phone] called in and stated his blood thinner holding directions needs to come from his Vascular doctor in [place] - Dr. Harvey ph [phone] HospitalTelephoneon [phone] MelendezShantel 1960 M Date Provider Department Center 04/06/2025 [facility] [place] Family History Problem Relation Age of Onset Heart disease Mother Cancer Father Stroke Paternal Grandfather Family Status - Relation Status Age at Mother Alive Father Alive Paternal Grandfather AliveNormalUniversJoint Township District Memorial HospitalBasophils Auto (Bld) [#/Vol]Ordered By: Griselda Krause on 26-89-3665Genyqoyib (Bld) [#/Vol]0.1 10 3/uL0.0-0.1FTriHealth Bethesda Butler HospitalBasophils/100 WBC Auto (Bld) Ordered By: Griselda Krause on 29-90-9368Ibunehapz/100 WBC (Bld)1.0 %0.2-2.0[facility] HospitalCholesterol in LDL Calc [Mass/Vol]Ordered By: Griselda Krause on 82-75-4986Qjyturmxdcu in LDL [Mass/Vol]26.4 mg/dLOhiohealth Riverside Methodist HospitalComment on above:<100 mg/dl CIXDEPX521-346 mg/dl NEAR OR ABOVE NXASVGO342- 159 mg/dl BORDERLINE SUUK809-432 mg/dl HIGH>190 mg/dl VERY HIGHCholesterol in VLDL Calc [Mass/Vol]Ordered By: Griselda Krause on 72-81-9787Ofuhzmfrymc in VLDL [Mass/Vol]15.6 mg/dLOhiohealth Riverside Methodist HospitalEosinophils/100 WBC Auto (Bld)Ordered By: Griselda Krause on 87-21-7397Zmvzomhdcpp/100 WBC (Bld)1.0 %0.9-7.0 [facility] HospitalErythrocyte distribution width Auto (RBC) [Ratio]Ordered By: Griselda Krause on 56-02-4448Kamvtcriyff distribution width (RBC) [Ratio]13.6 %11.0-15.0[facility] HospitalGlobulin Calc (S) [Mass/Vol]Ordered By: Griselda Krause on 32-90-0328Xefikffq (S) [Mass/Vol]2.4 g/dL [facility] HospitalGlomerular filtration rate (GFR) estimation in non- AmericanOrdered By: Griselda Krause on 33-53-2232PIY/1.73 sq M.predicted among non-blacks MDRD (S/P/Bld) [Vol rate/Area]mL/min/{1.73_m2}>=60 mL/min/1.73m 2FTriHealth Bethesda Butler HospitalHematocrit Auto (Bld) [Volume fraction]Ordered By: Griselda Krause on 10-69-0876Jdmzoicdpw (Bld) [Volume fraction]41.7 %Low42.0-54.0 [facility] HospitalHemoglobin [Mass/volume] in BloodOrdered By: Griselda Krause on 42-79-4558Vegbjuvprx (Bld) [Mass/Vol]14.1 g/dL14.0-18.0[facility] HospitalLaboratory - Chemistry and Chemistry - challengeOrdered By: Griselda Krause on 38-90-3973Pcqhrbk [Mass/Vol]2.9 g/dLLow3.4-5.0[facility] HospitalALP [Catalytic activity/Vol]70 U/R64-900XiparfdmzOhiohealth Riverside Methodist HospitalALT [Catalytic activity/Vol]38 U/I67-21MahaizhpuOhiohealth Riverside Methodist HospitalAST [Catalytic activity/Vol]17 U/P31-61RskpskwkuOhiohealth Riverside Methodist HospitalBilirubin [Mass/Vol]0.7 mg/dL0.2-1.0[facility] Calcium [Mass/Vol]8.6 mg/dL8.5-10.1FTriHealth Bethesda Butler HospitalChloride [Moles/Vol]107 mmol/R47-194SmmsmbqvdOhiohealth Riverside Methodist HospitalCholesterol [Mass/Vol]96 mg/dL<=200[facility] HospitalCholesterol in HDL [Mass/Vol]54 mg/fO96-20BxvlrwcykOhiohealth Riverside Methodist HospitalComment on above:> or =60 mg/dl - LOW CARDIOVASCULAR RISK<40 mg/dl - HIGH CARDIOVASCULAR RISKCO2 [Moles/Vol]28.2 mmol/L21.0-32.0[facility] HospitalCreatinine [Mass/Vol]0.89 mg/dL0.70-1.30[facility] HospitalGFR/1.73 sq M.predicted MDRD (S/P/Bld) [Vol rate/Area]mL/min/{1.73_m2}>=60 mL/min/1.73m 2 [facility] HospitalGlucose [Mass/Vol]83 mg/uV19-996QkqvhxwqpOhiohealth Riverside Methodist HospitalPotassium [Moles/Vol]4.1 mmol/L3.5-5.1FTriHealth Bethesda Butler HospitalProtein [Mass/Vol]5.3 g/dLLow6.4-8.2FParkview Healthodium [Moles/Vol]140 mmol/V957-046KwezhbqydOhiohealth Riverside Methodist Hospital Triglyceride [Mass/Vol]78 mg/dL<=150[facility] HospitalTSH Qn1.929 m[IU]/L0.358-3.740[facility] HospitalUrea nitrogen [Mass/Vol]14.0 mg/dL7.0-18.0[facility] HospitalUrea nitrogen/Creatinine [Mass ratio]15.7 mg/mgOhiohealth Riverside Methodist HospitalLaboratory - Hematology and Cell countsOrdered By: Griselda Krause on 92-42-1186Ypoxfbyt granulocytes/100 WBC (Bld)0.1 %0.0-0.5FTriHealth Bethesda Butler HospitalLeukocytes [#/volume] corrected for nucleated erythrocytes in Blood by Automated counOrdered By: Griselda Krause on 71-69-1473FLZ corrected for nucl RBC Auto (Bld) [#/Vol]6.7 10 3/uL 4.0-11.0[facility] HospitalLymphocytes Auto (Bld) [#/Vol]Ordered By: Griselda Krause on 35-65-2081Ppsfqorkrlz (Bld) [#/Vol]2.5 10 3/uL1.2-3.8[facility] HospitalLymphocytes/100 WBC Auto (Bld)Ordered By: Griselda Krause on 17-59-3440Xtyluggdsxk/100 WBC (Bld)36.8 %20.5-60.0[facility] HospitalMCH Auto (RBC) [Entitic mass]Ordered By: Griselda Krause on 82-49-2942TQI (RBC) [Entitic mass]31.8 pg25.9-34.0[facility] HospitalMCHC Auto (RBC) [Mass/Vol]Ordered By: Griselda Krause on 73-02-7078HDIV (RBC) [Mass/Vol]33.8 g/dL 29.9-35.2FTriHealth Bethesda Butler HospitalMCV Auto (RBC) [Entitic vol]Ordered By: Griselda Krause on 12-25-4092EIJ (RBC) [Entitic vol]94.1 yXRjjj33.0-94.0[facility] HospitalMonocytes Auto (Bld) [#/Vol]Ordered By: Griselda Krause on 05-39-1737Yrabisach (Bld) [#/Vol]0.3 10 3/uL0.3-0.8[facility] HospitalMonocytes/100 WBC Auto (Bld)Ordered By: Griselda Krause on 04-03-2025 Monocytes/100 WBC (Bld)4.9 %1.7-12.0[facility] HospitalNeutrophils Auto (Bld) [#/Vol]Ordered By: Griselda Krause on 84-12-2351Fordzthbbdj (Bld) [#/Vol] 3.8 10 3/uL1.4-6.5FTriHealth Bethesda Butler HospitalNeutrophils/100 WBC Auto (Bld)Ordered By: Griselda Krause on 11-93-8274Ajygpundvzs/100 WBC (Bld)56.2 % 43.0-75.0[facility] HospitalNo Panel InformationOrdered By: Griselda Krause on 47-68-5196Gdssqysbhit # (Auto)0.1 10 3/uL0.0-0.7FTriHealth Bethesda Butler HospitalImmature Granulocyte # (Auto)0.01 10 3/uL0.00-0.03[facility] HospitalPlatelet mean volume Auto (Bld) [Entitic vol]Ordered By: Griselda Krause on 96-56-9873Tjgeqmce mean volume (Bld) [Entitic vol]11.6 fL9.5-13.5 [facility] HospitalPlatelets Auto (Bld) [#/Vol]Ordered By: Griselda Krause on 42-41-5493Vvzbkmmzh (Bld) [#/Vol]285 10 3/sD647-476LuuembjcyOhiohealth Riverside Methodist HospitalRBC Auto (Bld) [#/Vol]Ordered By: Griselda Krause on 21-36-1616LTC (Bld) [#/Vol]4.43 10 6/uLLow4.70-6.10[facility] Centererum or plasma albumin/globulin mass ratioOrdered By: Griselda Krause on 04-03-2025 Albumin/Globulin [Mass ratio]1.2 {ratio}[facility] Centererum or plasma anion gap determinationOrdered By: Griselda Krause on 97-63-5903Zlwgl gap [Moles/Vol]8.9 mmol/LFParkview Healtherum or plasma total cholesterol/high density lipoprotein (HDL) cholesterol mass ratOrdered By: Griselda Krause on 45-51-0141Tqxzweczwyd.total/Cholesterol in HDL [Mass ratio]1.8 {ratio} [facility] HospitalComment on above:3.3 - 4.4 LOW RISK4.4 - 7.1 AVERAGE RISK7.1 - 11.0 MODERATE RISK>11.0 HIGH RISKConsulton 50-37-7199Jygwyup [id number] Shantel Melendez 1960 M Date Provider Department Center 03/24/2025 DEBRA LYNN [facility] SURG Second Fl Family History Problem Relation Age of Onset Heart disease Mother Cancer Father Stroke Paternal Grandfather Family Status - Relation Status Age at Mother Alive Father Alive Paternal Grandfather Alive Level of Service:71417 CA OFFICE/OUTPATIENT NEW MODERATE MDM [address] Rita's HospitalUS ankle/arm indiceson 05-62-2940HG ankle/arm indicesOHIOHEALTH O'[place] [address] Ultrasound Report Signed Patient: Shantel Melendez MR#: [id number] : 1960 Acct:[id number] Age/Sex: 64 / M ADM Date: 02/26/25 Loc: Room: Type: DEP CLI Attending Dr: Griselda Krause DO Ordering Provider: Griselda Krause DO Date of Service: 02/26/25 US/US [...] Harvey MD,FACS,FSVS 02/27/2025 7:42 AM Dictation Location: [place] [address] Tech: Agueda Helm Transcribed By: MARISA 02/27/25 0742 Dictated By: Ruddy Harvey MD 02/27/25 0741 Signed By: 02/27/25 0742H[facility] Hospital Physician GroupBasophils Auto (Bld) [#/Vol] Ordered By: Sofia Marker on 49-30-0629Diomxtgai (Bld) [#/Vol]0.1 10 3/uL 0.0-0.1FTriHealth Bethesda Butler HospitalBasophils/100 WBC Auto (Bld)Ordered By: Sofia Marker on 71-15-4816Smcmuihqg/100 WBC (Bld)0.7 %0.2-2.0[facility] HospitalEosinophils/100 WBC Auto (Bld)Ordered By: Sofia Marker on 78-36-0039Hkzgjsjqgvq/100 WBC (Bld)1.1 %0.9-7.0[facility] HospitalErythrocyte distribution width Auto (RBC) [Ratio]Ordered By: Sofia Marker on 71-39-9848Jilyktchwat distribution width (RBC) [Ratio]13.4 %11.0-15.0 [facility] HospitalFibrin D-dimer [Presence] in Platelet poor plasma by Latex agglutinationOrdered By: Sofia Marker on 56-26-7933Cevwqq D- dimer LA Ql (PPP)0.56 mg/L FEU<=0.59[facility] HospitalComment on above:Increases in D-Dimer concentration observed withthromboembolic [...] Calc (S) [Mass/Vol]Ordered By: Sofia Marker on 23-26-6488Mbuycymr (S) [Mass/Vol]2.5 g/dLOhiohealth Riverside Methodist HospitalGlomerular filtration rate (GFR) estimation in non- AmericanOrdered By: Sofia Marker on 02-18-2025 GFR/1.73 sq M.predicted among non-blacks MDRD (S/P/Bld) [Vol rate/Area] mL/min/{1.73_m2}>=60 mL/min/1.73m 2FTriHealth Bethesda Butler HospitalHematocrit Auto (Bld) [Volume fraction]Ordered By: Sofia Marker on 61-17-2057Qqrxzyklpj (Bld) [Volume fraction]39.7 %Low42.0-54.0[facility] Hemoglobin [Mass/volume] in BloodOrdered By: Sofia Marker on 02-18-2025 Hemoglobin (Bld) [Mass/Vol]13.8 g/dLLow14.0-18.0[facility] HospitalLaboratory - Chemistry and Chemistry - challengeOrdered By: Sofia Marker on 03-24-3048Opewdac [Mass/Vol]3.0 g/dLLow3.4-5.0[facility] HospitalALP [Catalytic activity/Vol]68 U/L96-850QxxspyaviOhiohealth Riverside Methodist Hospital ALT [Catalytic activity/Vol]18 U/L27-73ArgpyygktOhiohealth Riverside Methodist HospitalAST [Catalytic activity/Vol]11 U/WFkg53-85LtzszzqueOhiohealth Riverside Methodist HospitalBilirubin [Mass/Vol]0.8 mg/dL0.2-1.0[facility] HospitalCalcium [Mass/Vol]9.5 mg/dL8.5-10.1FTriHealth Bethesda Butler HospitalChloride [Moles/Vol]108 mmol/L Cigq15-113QrarzolvbOhiohealth Riverside Methodist HospitalCO2 [Moles/Vol]27.5 mmol/L21.0-32.0 [facility] HospitalCreatinine [Mass/Vol]0.87 mg/dL0.70-1.30 [facility] HospitalGFR/1.73 sq M.predicted MDRD (S/P/Bld) [Vol rate/Area]mL/min/{1.73_m2}>=60 mL/min/1.73m 2FTriHealth Bethes[facility] Butler Hospital Glucose [Mass/Vol]78 mg/yT56-699GdtdarwreOhiohealth Riverside Methodist HospitalPotassium [Moles/Vol]4.1 mmol/L3.5-5.1FTriHealth Bethesda Butler HospitalProtein [Mass/Vol] 5.5 g/dLLow6.4-8.2FParkview Healthodium [Moles/Vol]144 mmol/L 136-145[facility] HospitalUrea nitrogen [Mass/Vol]11.0 mg/dL 7.0-18.0[facility] HospitalUrea nitrogen/Creatinine [Mass ratio] 12.6 mg/mgOhiohealth Riverside Methodist HospitalLaboratory - Hematology and Cell countsOrdered By: Sofia Marker on 21-80-4688Fpuovovn granulocytes/100 WBC (Bld)0.3 %0.0-0.5FTriHealth Bethesda Butler HospitalLeukocytes [#/volume] corrected for nucleated erythrocytes in Blood by Automated counOrdered By: Sofia Marker on 58-27-1817EHM corrected for nucl RBC Auto (Bld) [#/Vol]7.4 10 3/uL4.0-11.0[facility] HospitalLymphocytes Auto (Bld) [#/Vol] Ordered By: Sofia Marker on 01-87-2532Jjumwxdpuky (Bld) [#/Vol]2.1 10 3/uL 1.2-3.8[facility] HospitalLymphocytes/100 WBC Auto (Bld)Ordered By: Sofia Marker on 35-52-5085Baejwblivps/100 WBC (Bld)28.8 %20.5-60.0 [facility] HospitalMCH Auto (RBC) [Entitic mass]Ordered By: Sofia Marker on 89-00-9858GPI (RBC) [Entitic mass]32.5 pg25.9-34.0[facility] HospitalMCHC Auto (RBC) [Mass/Vol]Ordered By: Sofia Marker on 24-61-3731EERN (RBC) [Mass/Vol]34.8 g/dL29.9-35.2FTriHealth Bethesda Butler HospitalMCV Auto (RBC) [Entitic vol]Ordered By: Sofia Marker on 64-78-9472OSH (RBC) [Entitic vol]93.4 fL80.0-94.0[facility] HospitalMonocytes Auto (Bld) [#/Vol]Ordered By: Sofia Marker on 36-87-3302Tkbwtaenj (Bld) [#/Vol]0.4 10 3/uL0.3-0.8[facility] HospitalMonocytes/100 WBC Auto (Bld)Ordered By: Sofia Marker on 44-53-1328Dvtvhjzug/100 WBC (Bld)5.6 % 1.7-12.0[facility] HospitalNeutrophils Auto (Bld) [#/Vol]Ordered By: Sofia Marker on 33-69-4529Nrvjvqeivrj (Bld) [#/Vol]4.7 10 3/uL1.4-6.5 [facility] HospitalNeutrophils/100 WBC Auto (Bld)Ordered By: Sofia Marker on 73-03-5538Gxjquntqrkh/100 WBC (Bld)63.5 %43.0-75.0[facility] HospitalNo Panel InformationOrdered By: Sofia Marker on 50-29-8550Eikgbjyvrfd # (Auto)0.1 10 3/uL0.0-0.7FTriHealth Bethesda Butler HospitalImmature Granulocyte # (Auto)0.02 10 3/uL0.00-0.03[facility] HospitalTroponin I High Whbfmkllnsm64.3 pg/mL4.0-76.1FTriHealth Bethesda Butler HospitalComment on above:CUT-OFF POINTS HAVE BEEN ESTABLISHED [...] (Bld) [Entitic vol]Ordered By: Sofia Marker on 19-06-2610Emuwgnmo mean volume (Bld) [Entitic vol]11.4 fL9.5-13.5FTriHealth [facility] Hospital Platelets Auto (Bld) [#/Vol]Ordered By: Sofia Marker on 07-30-3281Gvzzuqfmm (Bld) [#/Vol]246 10 3/bS864-077DucdomadaOhiohealth Riverside Methodist HospitalRBC Auto (Bld) [#/Vol]Ordered By: Sofia Marker on 78-64-8807GMI (Bld) [#/Vol]4.25 10 6/uLLow 4.70-6.10[facility] Centererum or plasma albumin/globulin mass ratioOrdered By: Sofia Marker on 69-28-9738Mlknnja/Globulin [Mass ratio]1.2 {ratio}[facility] Centererum or plasma anion gap determination Ordered By: Sofia Marker on 88-45-5293Mqlzr gap [Moles/Vol]12.6 mmol/L [facility]36on 08-44-588944Bhjpbdk scheduled for 03/24/25 @ 10:30amNormalSt. Rita's Hospital36LVM for pt to call clinic to schedule consult with Dr. Figueroa to discuss SCS placement. Imaging requested. Please transfer pt to pre reg after call. Please inform telegraphic typewriter installer when scheduled. [employer]! reps will need notified.Normal St. Rita's HospitalTelephoneon [id number] Shantel Melendez 1960 M Date Provider Department Center 02/13/2025 AYAH ALCOCER [facility] SURG Second Fl No family history on fileNormalUniversity of Texas Health Harris [facility] Hospital CleburneActivated partial thromboplastin time (aPTT) in platelet poor plasma by coagulation a Ordered By: Andguillaume Ramsey on 06-76-1557lBMW Coag (PPP) [Time]24.2 s 22.3-36.2FTriHealth Bethesda Butler HospitalBasophils Auto (Bld) [#/Vol]Ordered By: Andrius Giedraitis on 41-09-7287Dujgdcnnb (Bld) [#/Vol]0.0 10 3/uL0.0-0.1 [facility] HospitalBasophils/100 WBC Auto (Bld)Ordered By: Andrius Flowersraitis on 49-94-8103Pgwzdsmaw/100 WBC (Bld)0.2 %0.2-2.0[facility] HospitalEosinophils/100 WBC Auto (Bld)Ordered By: Andrius Flowersraitis on 72-96-5678Ifgvtkqzodw/100 WBC (Bld)0.1 %Low0.9-7.0[facility] HospitalErythrocyte distribution width Auto (RBC) [Ratio]Ordered By: Andrius Gipaoraitis on 90-69-9733Cjzwqguiimo distribution width (RBC) [Ratio]14.1 % 11.0-15.0[facility] HospitalGlomerular filtration rate (GFR) estimation in non- AmericanOrdered By: Andrius Ramsey on 01-27-2025 GFR/1.73 sq M.predicted among non-blacks MDRD (S/P/Bld) [Vol rate/Area] mL/min/{1.73_m2}>=60 mL/min/1.73m 2FTriHealth Bethesda Butler HospitalHematocrit Auto (Bld) [Volume fraction]Ordered By: Andrius Flowersrajovany on 01-27-2025 Hematocrit (Bld) [Volume fraction]38.0 %Low42.0-54.0[facility] HospitalHemoglobin [Mass/volume] in BloodOrdered By: Andrius Kristieraitis on 70-12-4354Gfjzwphtfr (Bld) [Mass/Vol]13.0 g/dLLow14.0-18.0[facility] HospitalINR in Platelet poor plasma by Coagulation assayOrdered By: Sarina Ramsey on 58-73-7806UEC Coag (PPP) [Relative time]1.09 {INR} [facility] HospitalComment on above:DESIRED INR:2.0-3.0 CONDITIONS NOT LISTED BELOW2.5-3.5 FOR PROSTHETIC HEART VALVE REPLACEMENT2.5-3.5 RECURRENT THROMBOSISLaboratory - Chemistry and Chemistry - challengeOrdered By: Sarina Ramsey on 49-07-1169Wvldzfr [Mass/Vol]9.2 mg/dL8.5-10.1FTriHealth Bethesda Butler HospitalChloride [Moles/Vol]106 mmol/R24-214EgpvrtivaOhiohealth Riverside Methodist HospitalCO2 [Moles/Vol]28.7 mmol/L21.0-32.0[facility] Creatinine [Mass/Vol]0.81 mg/dL0.70-1.30[facility] GFR/1.73 sq M.predicted MDRD (S/P/Bld) [Vol rate/Area]mL/min/{1.73_m2}>=60 mL/min/1.73m 2FTriHealth Bethesda Butler HospitalGlucose [Mass/Vol]89 mg/vD42-333 [facility] HospitalPotassium [Moles/Vol]3.7 mmol/L3.5-5.1FParkview Healthodium [Moles/Vol]138 mmol/L182-578JdqdhkrcuOhiohealth Riverside Methodist HospitalUrea nitrogen [Mass/Vol]17.0 mg/dL7.0-18.0[facility] HospitalUrea nitrogen/Creatinine [Mass ratio]21.0 mg/mgOhiohealth Riverside Methodist HospitalLaboratory - Hematology and Cell countsOrdered By: Sarina Ramsey on 57-08-6668Kniinmbu granulocytes/100 WBC (Bld)0.2 %0.0-0.5FTriHealth Bethesda Butler HospitalLeukocytes [#/volume] corrected for nucleated erythrocytes in Blood by Automated counOrdered By: Sarina Ramsey on 90-01-7064LWJ corrected for nucl RBC Auto (Bld) [#/Vol]8.2 10 3/uL4.0-11.0 [facility] HospitalLymphocytes Auto (Bld) [#/Vol]Ordered By: Andrius Giedraitis on 16-02-7868Gvarkaeblvu (Bld) [#/Vol]2.4 10 3/uL1.2-3.8 [facility] HospitalLymphocytes/100 WBC Auto (Bld)Ordered By: Andrius Giedraitis on 13-48-3268Gegblkixkgn/100 WBC (Bld)29.3 %20.5-60.0 [facility] Clinic FoundationH Auto (RBC) [Entitic mass]Ordered By: Andrius Giedraitis on 63-92-3139OGK (RBC) [Entitic mass]32.1 pg25.9-34.0 [facility] HospitalMCHC Auto (RBC) [Mass/Vol]Ordered By: Andrius Giedraitis on 02-02-3599BRUN (RBC) [Mass/Vol]34.2 g/dL29.9-35.2FTriHealth Bethesda Butler HospitalMCV Auto (RBC) [Entitic vol]Ordered By: Andrius Giedraitis on 05-71-0164HIC (RBC) [Entitic vol]93.8 fL80.0-94.0[facility] HospitalMonocytes Auto (Bld) [#/Vol]Ordered By: Andrius Giedraitis on 12-18-5619Fdxpjqcsi (Bld) [#/Vol]0.4 10 3/uL0.3-0.8[facility] HospitalMonocytes/100 WBC Auto (Bld)Ordered By: Andrius Giedraitis on 92-13-0072Tbdacwart/100 WBC (Bld)5.0 %1.7-12.0[facility] HospitalNeutrophils Auto (Bld) [#/Vol]Ordered By: Andrius Giedraitis on 07-53-6670Iyozdczgejl (Bld) [#/Vol]5.4 10 3/uL1.4-6.5FTriHealth Bethesda Butler HospitalNeutrophils/100 WBC Auto (Bld)Ordered By: Andrius Giedraitis on 01-27-2025 Neutrophils/100 WBC (Bld)65.2 %43.0-75.0[facility] HospitalNo Panel InformationOrdered By: Sarina Flowersraitis on 99-74-3894Uklmtcywjlj # (Auto)0.0 10 3/uL0.0-0.7FTriHealth Bethesda Butler HospitalImmature Granulocyte # (Auto)0.02 10 3/uL0.00-0.03[facility] HospitalPlatelet mean volume Auto (Bld) [Entitic vol]Ordered By: Andrius Giedraitis on 48-46-9528D[place] mean volume (Bld) [Entitic vol]11.4 fL9.5-13.5FTriHealth Bethes[facility] Hospital Platelets Auto (Bld) [#/Vol]Ordered By: Andrius Giedraitis on 01-27-2025 Platelets (Bld) [#/Vol]214 10 3/kK809-012HplsiwciqOhiohealth Riverside Methodist Hospital Prothrombin time (PT)Ordered By: Andrius Giedraitis on 55-68-4839SJ Coag (PPP) [Time]11.5 s9.0-11.6FTriHealth Bethesda Butler HospitalRBC Auto (Bld) [#/Vol] Ordered By: Andrius Giedraitis on 47-04-2437FTF (Bld) [#/Vol]4.05 10 6/uLLow 4.70-6.10[facility] Centererum or plasma anion gap determinationOrdered By: Andrius Giedraitis on 27-75-1799Qbwdb gap [Moles/Vol] 7.0 mmol/LFTriHealth Bethesda Butler HospitalNo Panel Informationon 79-23-0876DLOM HealthcareNOKY HealthcareXR CERVICAL SPINE 2-3 VIEWSon 20-46-2556SO CERVICAL SPINE 2-3 VIEWSCervical spine. HISTORY: Cervical [...] AvailableX-ray report Ordered By: Yung Pozo on 34-37-5072Kkggw reportOHIOHEALTH O'BLENESS HOSPITAL Main [address] [address] XRay Report Signed Patient: Shantel Melendez MR#: [id number] : 1960 Acct:[id number] Age/Sex: 64 / M ADM Date: 5 Loc: [facility]: Griselda Krause DO Copies to: [...] D.OMaria R 2024 4:30 PM Dictation Location: [place] [address] Transcribed By: [facility] 11/24/24 1630 Dictated By: Yung Pozo Jr, DO 11/24/24 1630 Signed By: 11/24/24 1630 [facility] HospitalXR chest 2V*on 55-42-5632EJ chest 2V*[facility] Main [address] [address] XRay Report Signed Patient: Shantel Melendez MR#: [id number] : 1960 Acct:[id number] Age/Sex: 64 / M ADM Date: 11/24/24 Loc: [facility] Room: Type[facility] Attending Dr: Griselda Krause DO Copies [...] D.OMaria R 2024 4:30 PM Dictation Location: [place] [address] Transcribed By: [facility] 11/24/24 1630 Dictated By: Yung Pozo Jr, DO 11/24/24 1630 Signed By: 11/24/24 1630[facility] Hospital Physician GroupInfluenza virus B Ag [Presence] in Upper respiratory specimen by Rapid immunoassayon 05-73-3488DBGCN Ag IA.rapid Ql (Nph)Influenza virus B Ag [Presence] in Upper respiratory specimen by Rapid immunoassayOhiohealth Riverside Methodist HospitalFLUBV Ag IA.rapid Ql (Nph)Negative [facility] HospitalNo Panel Informationon 60-93-4451Uicpdsero Type A (Rapid)NegativeOhiohealth Riverside Methodist HospitalPO SARS CoV-2 Antigen NegativeOhiohealth Riverside Methodist HospitalNo Panel InformationOrdered By: Griselda Krause on 16-91-1378Tweyh Strep (POC)[facility] HospitalRSV (POC) [facility] HospitalCNOVSPon 92-55-4849YPWACSKzgli (SP) Office ([place]) SHANTEL MELENDEZ ([id number]) 1960 M Date Time Provider Department 11/07/24 9:20 AM RACQUEL COLE During your visit today, we recorded the following information about you: Temperature Pulse Respiration Blood pressure 97.5 degrees 72/minute 16/minute 115/89 Weight Height 79.3 kg 1.706 m Racquel Cole MD 11/07/2024 11:09 AM Signed NAME: Shantel Melendez CLINIC NO.: [id number] DATE OF SERVICE: November 07, 2024 (Curtis) Some elements in this clinic note that are critical to medical decision making have been carefully reviewed and included from a prior clinic note dated: November 02, 2023 (Curtis) Referring Provider: Griselda Krause, DO Additional Clinicians involved in Shantel Melendez's care: Dr Kimberly Nichole ENT, Dr. 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 10/05/2021 - MRI Brain: [facility] There is T2 and T2 [...] represent (more content not included)... NormalMercy Health St. Charles Hospital ClevelandNo Panel InformationOrdered By: Nathanael Arango on 38-65-5115Ptlqzvbatcilo Pathology TestSee commentOhiohealth Riverside Methodist HospitalComment on above:See report. Scanned copy available in EMR.Pathology Request for Lab Corpon 86-58-3471Jvuqvvvcp Request for Lab CorpHialeah Hospital Physician GroupComment on above:Order Comment: GI SPECIMENResult Comment: See report. Scanned copy available in EMR. PERFORMED BY: [place] [address] PATHOLOGIST STRINGS TEACHER EDUARDO HOLLINGSWORTH M.D.Performed By: #### [facility] #### [place] [address] USABasophils Auto (Bld) [#/Vol]on 54-66-9207Bjgdzgqit (Bld) [#/Vol]Automated basophil count<0.11[facility] HospitalBasophils (Bld) [#/Vol]0.06 10*3/uL<0.11[facility] HospitalBasophils/100 WBC Auto (Bld)on 67-03-5161Zhezpjvdl/100 WBC (Bld)Automated basophil %[facility] HospitalBasophils/100 WBC (Bld)1.0 %[facility] HospitalBlood manual differential comment interpretation narrativeon 11-03-2024 Manual differential comment Curtis (Bld) [Interp]Blood manual differential comment interpretation narrativeOhiohealth Riverside Methodist HospitalManual differential comment Curtis (Bld) [Interp]AutoOhiohealth Riverside Methodist HospitalCBC W Auto Differential panel (Bld)on 03-89-8898Eomaktgun (Bld) [#/Vol]0.06 10*3/uLNINF Woodruff ClinicBasophils/100 WBC (Bld)1 %[facility] Charles HospitalDifferential cell count method Nom (Bld)AutoCleveland ClinicEosinophils (Bld) [#/Vol]0.16 10*3/uL NINFCleveland ClinicEosinophils/100 WBC (Bld)2.7 %[facility]. Charles HospitalErythrocyte distribution width (RBC) [Ratio]14.6 %11.5 - 15.0 %[facility] Charles HospitalHematocrit (Bld) [Volume fraction]40 %39.0 - 51.0 %[facility] Charles HospitalHemoglobin (Bld) [Mass/Vol]13.6 g/dL13.0 - 17.0 g/dLMercy Health [address]. Charles HospitalImmature granulocytes (Bld) [#/Vol]NINFClevelOhioHealth Van Wert HospitalImmature granulocytes/100 WBC (Bld)0.2 %[facility] Charles HospitalLymphocytes (Bld) [#/Vol]2.73 10*3/uLMercy Health St. Charles HospitalLymphocytes/100 WBC (Bld)45.3 %[facility] CenterH (RBC) [Entitic mass]31.9 pg26.0 - 34.0 pg [facility] CenterHC (RBC) [Mass/Vol]34 g/dL30.5 - 36.0 g/dLLakeHealth Beachwood Medical CenterV (RBC) [Entitic vol]93.9 fL80.0 - 100.0 fLCSt. Mary's Medical CenterMonocytes (Bld) [#/Vol] 0.4 10*3/uLNINFMercy Health St. Charles HospitalMonocytes/100 WBC (Bld)6.6 %[facility] Neutrophils (Bld) [#/Vol]2.67 10*3/uLMercy Health St. Charles HospitalNeutrophils/100 WBC (Bld) 44.2 %[facility] Charles HospitalNucleated RBC (Bld) [#/Vol]NINFCleveland ClinicNucleated RBC/100 WBC (Bld) [Ratio]0 %/[address] Charles HospitalPlatelet mean volume (Bld) [Entitic vol]11 fL9.0 - 12.7 fLCohiohealth southeastern medical center ClinicPlatelets (Bld) [#/Vol]281 10*3/uLMercy Health St. Charles HospitalRBC (Bld) [#/Vol]4.26 10*6/uL4.20 - 6.00 m/Wilson HealthWBC (Bld) [#/Vol]6.03 10*3/[facility] ClinicBasophils (Bld) [#/Vol]0.06 10*3/uLNormal<0.11CWooster Community HospitalComment on above: Order Comment: Specimen Type: BLOOD SPECIMEN Ordering Facility: [facility] Address: [address] [place], [place] [address]Performed By: #### 45324-3 #### [facility] CLIA [id number] [address] [place] [address] 310[address]Nlpvqadhz/100 WBC (Bld)1.0 %NormalAccess Hospital Dayton Comment on above:Order Comment: Specimen Type: BLOOD SPECIMEN Ordering Facility: [facility] Address: [address] [place], [place] [address]Performed By: #### 11593-8 #### [facility] CLIA [id number] [address] [place] [address] 116[address]Xxuocbahwjyj cell count method Nom (Bld)AutoNormalCOhioHealth [facility] on above:Order Comment: Specimen Type: BLOOD SPECIMEN Ordering Facility: [facility] Address: [address] [place], [place] [address]Performed By: #### 67283-6 #### [facility] CLIA [id number] [address] [place] [address] 732[address]Zlfvkrndfjp (Bld) [#/Vol]0.16 10*3/uLNormal<0.46[facility] on above:Order Comment: Specimen Type: BLOOD SPECIMEN Ordering Facility: [facility] Address: [address] [place], [place] [address]Performed By: #### 74029-1 #### [facility] CLIA [id number] [address] [place] [address] [id number]/100 WBC (Bld)2.7 %[facility] above:Order Comment: Specimen Type: BLOOD SPECIMEN Ordering Facility: [facility] Address: [address] [place], [place] [address]Performed By: #### [id number] #### [facility] CLIA [id number] [address] [place] [address] [id number] distribution width (RBC) [Ratio]14.6 %Normal 11.5-15.0[facility] on above:Order Comment: Specimen Type: BLOOD SPECIMEN Ordering Facility: [facility] Address: [address] [place], [place] [address]Performed By: #### 38230-2 #### [facility] CLIA [id number] [address] [place] [address] [id number] (Bld) [Volume fraction]40.0 %Qtllcd06.0-51.0 [facility] on above:Order Comment: Specimen Type: BLOOD SPECIMEN Ordering Facility: [facility] Address: [address] [place], [place] [address]Performed By: #### [id number] #### [facility] CLIA [id number] [address] [place] [address] [id number] (Bld) [Mass/Vol]13.6 g/tKGpduwy63.0-17.0[facility] [facility] on above:Order Comment: Specimen Type: BLOOD SPECIMEN Ordering Facility: [facility] Address: [address] [place], [place] [address]Performed By: #### 46020-5 #### [facility] CLIA [id number] [address] [place] [address] 81387Meajjzzh granulocytes (Bld) [#/Vol]10*3/uLNormal<0.10[facility] on above:Order Comment: Specimen Type: BLOOD SPECIMEN Ordering Facility: [facility] Address: [address] [place], [place] [address]Performed By: #### 67305-4 #### [facility] CLIA [id number] [address] [place] [address] 60547Jkbjpqbw granulocytes/100 WBC (Bld)0.2 %NormalAvita Health System [facility] on above:Order Comment: Specimen Type: BLOOD SPECIMEN Ordering Facility: [facility] Address: [address] [place], [place] [address]Performed By: #### 44449-7 #### [facility] CLIA [id number] [address] [place] [address] 83555Aahshsplxdt (Bld) [#/Vol]2.73 10*3/uLNormal1.00-4.00[facility] on above:Order Comment: Specimen Type: BLOOD SPECIMEN Ordering Facility: [facility] Address: [address] [place], [place] [address]Performed By: #### 67219-8 #### [facility] CLIA [id number] [address] [place], [place] [address]Nbdapfmuxol/100 WBC (Bld)45.3 %NormalAvita Health System [facility] on above:Order Comment: Specimen Type: BLOOD SPECIMEN Ordering Facility: [facility] Address: [address] [place], [place] [address]Performed By: #### 63860-7 #### [facility] CLIA [id number] [address] [place] [address] 47645OSI (RBC) [Entitic mass]31.9 rdJbwbqh87.0-34.0[facility] on above:Order Comment: Specimen Type: BLOOD SPECIMEN Ordering Facility: [facility] Address: [address] [place], [place] [address]Performed By: #### 76596-4 #### [facility] CLIA [id number] [address] [place], [place] [address]KBYR (RBC) [Mass/Vol]34.0 g/pFIhyjgs30.5-36.0[facility] on above:Order Comment: Specimen Type: BLOOD SPECIMEN Ordering Facility: [facility] Address: [address] [place], [place] [address]Performed By: #### 17986-4 #### [facility] CLIA [id number] [address] [place] [address] 06236YNG (RBC) [Entitic vol]93.9 wOGonxpn75.0-100.0[facility] on above:Order Comment: Specimen Type: BLOOD SPECIMEN Ordering Facility: [facility] Address: [address] [place], [place] [address]Performed By: #### 63970-2 #### [facility] CLIA [id number] [address] [place] [address] 63128Yoryqptec (Bld) [#/Vol]0.40 10*3/uLNormal<0.87[facility] on above:Order Comment: Specimen Type: BLOOD SPECIMEN Ordering Facility: [facility] Address: [address] [place], [place] [address]Performed By: #### 84914-0 #### [facility] CLIA [id number] [address] [place] [address] 74980Vzhrpxybs/100 WBC (Bld)6.6 %NormalAccess [facility] Comment on above:Order Comment: Specimen Type: BLOOD SPECIMEN Ordering Facility: [facility] Address: [address] [place], [place] [address]Performed By: #### 81646-4 #### [facility] CLIA [id number] [address] [place] [address] 40013Aaexhvhgoyy (Bld) [#/Vol]2.67 10*3/uLNormal1.45-7.50[facility] on above:Order Comment: Specimen Type: BLOOD SPECIMEN Ordering Facility: [facility] Address: [address] [place], [place] [address]Performed By: #### 51309-8 #### [facility] CLIA [id number] [address] [place] [address] 56778Vlxkektxtev/100 WBC (Bld)44.2 %NormalAccess Hospital DaytonComasp[facility] on above:Order Comment: Specimen Type: BLOOD SPECIMEN Ordering Facility: [facility] Address: [address] [place], [place] [address]Performed By: #### 90012-2 #### [facility] CLIA [id number] [address] [place] [address] 95869Nolwiwngt RBC (Bld) [#/Vol]10*3/uLNormal<0.01[facility] on above:Order Comment: Specimen Type: BLOOD SPECIMEN Ordering Facility: [facility] Address: [address] [place], [place] [address]Performed By: #### 49278-2 #### [facility] CLIA [id number] [address] [place], [place] [address]Zdcvxyjqf RBC/100 WBC (Bld) [Ratio]0.0 /100 WBCNormalCOhioHealth [facility] on above:Order Comment: Specimen Type: BLOOD SPECIMEN Ordering Facility[facility] Address: [address] [place], [place] [address]Performed By: #### 74400-4 #### [facility] CLIA [id number] [address] [place], [place] [address]Huhxciue mean volume (Bld) [Entitic vol]11.0 fLNormal9.0-12.7 [facility] on above:Order Comment: Specimen Type: BLOOD SPECIMEN Ordering Facility: [facility] Address: [address] [place], [place] [address]Performed By: #### 50584-7 #### [facility] CLIA [id number] [address] [place], [place] [address]Jdpqkyhxu (Bld) [#/Vol]281 10*3/sXDqwjql404-069QbvoidushAvita Health System [facility] on above:Order Comment: Specimen Type: BLOOD SPECIMEN Ordering Facility[facility] Address: [address] [place], [place] [address]Performed By: #### 45193-5 #### [facility] CLIA [id number] [address] [place], [place] [address]MJF (Bld) [#/Vol]4.26 10*6/uLNormal4.20-6.00[facility] on above:Order Comment: Specimen Type: BLOOD SPECIMEN Ordering Facility: [facility] Address: [address] [place], [place] [address]Performed By: #### 55651-7 #### [facility] CLIA [id number] [address] [place], [place] [address]PEQ (Bld) [#/Vol]6.03 10*3/uLNormal3.70-11.00[facility] on above:Order Comment: Specimen Type: BLOOD SPECIMEN Ordering Facility[facility] Address: [address] [place], [place] [address]Performed By: #### 07934-5 #### [facility] CLIA [id number] [address] [place], [place] [address]NIVBvt [id number] (HEMTSA) SHANTEL MELENDEZ ([id number]) 1960 M Date Time Provider Department 11/03/24 [...] [C76.0] Order(s):COMPREHENSIVE METABOLIC PANEL [SQCMP] Order #: [id number] FUTURE COMPLETE BLOOD COUNT AND DIFFERENTIAL [SQCBCDIF] Order #: [id number] FUTURE Prescriptions as of 11/03/2024 - amLODIPine [...] hours. Encounter Status:Closed by RACQUEL COLE on 11/03/24[facility] CHEST W IVCONon [id number] CHEST W IVCON* * *Final Report* * * DATE OF EXAM: Nov 03 2024 8:41AM [facility] [place] [facility]39 - CT CHEST W IVCON / [...] any questions regarding this interpretation, please call [phone]. If you are unable to reach us at the number above, please feel free to contact [facility] eRadiology at [phone]. [id number] Hospital DaytonCT Chest W contrast Tristin 57-69-3252NTUZWXKSKD: 1. No CT evidence of new metastatic [...] any questions regarding this interpretation, please call [phone]. If you are unable to reach us at the number above, please feel free to contact [facility] eRadiology at [phone].DIVISION OF RADIOLOGY* * *Final Report* * * DATE OF EXAM: Nov 03 2024 8:41AM [facility] [place] [facility] - CT CHEST W IVCON / [...] images: No additional findings. DIVISION OF RADIOLOGYProvider, [facility] [place] - 11/03/2024 * * *Final Report* * * DATE OF EXAM: Nov 03 2024 8:41AM [facility] [place] 05[facility] - CT CHEST W IVCON / [...] any questions regarding this interpretation, please call [phone]. If you are unable to reach us at the number above, please feel free to contact [facility] eRadiology at [phone]. [facility] HospitalCT NECK SOFT TISSUE W IVCONon [id number] NECK SOFT TISSUE W IVCON* * *Final Report* * * DATE OF EXAM: Nov 03 2024 8:41AM [facility] [place] 0013 - CT NECK SOFT TISSUE W [...] 1. No evidence of abnormal lymph nodes. [email or web address] [email or web address] Transcribe Date/Time: Nov 03 2024 8:53A Dictated by: BENJAMIN AL MD This examination was interpreted and the report reviewed and electronically signed by: BENJAMIN AL MD on Nov 03 2024 9:01AM EST Thank you for allowing us to participate in the care of your patient. Should there be any questions regarding this interpretation, please call [phone]. If you are unable to reach us at the number above, please feel free to contact [facility] eRadiology at [phone]. [id number] Beachwood Medical Center Neck W contrast Tristin 12-42-6923SYFNCFAKZQ: Primary: Category 1. Expected post-treatment changes in the neck without evidence of recurrent disease in the primary site. Neck: Category 1. No evidence of abnormal lymph nodes. [email or web address] [email or web address] Transcribe Date/Time: Nov 03 2024 8:53A Dictated by: BENJAMIN AL MD This examination was interpreted and the report reviewed and electronically signed by: BENJAMIN AL MD on Nov 03 2024 9:01AM EST Thank you for allowing us to participate in the care of your patient. Should there be any questions regarding this interpretation, please call [phone]. If you are unable to reach us at the number above, please feel free to contact [facility] at [phone].DIVISION OF RADIOLOGY* * *Final Report* * * DATE OF EXAM: Nov 03 2024 8:41AM [facility] [place] 0013 - CT NECK SOFT TISSUE W [...] mass. Other: Not applicable. DIVISION OF RADIOLOGYProvider, [facility] [place] - 11/03/2024 * * *Final Report* * * DATE OF EXAM: Nov 03 2024 8:41AM [facility] [place] 0013 - CT NECK SOFT TISSUE W [...] 1. No evidence of abnormal lymph nodes. [email or web address] [email or web address] Transcribe Date/Time: Nov 03 2024 8:53A Dictated by: BENJAMIN AL MD This examination was interpreted and the report reviewed and electronically signed by: BENJAMIN AL MD on Nov 03 2024 9:01AM EST Thank you for allowing us to participate in the care of your patient. Should there be any questions regarding this interpretation, please call [phone]. If you are unable to reach us at the number above, please feel free to contact [facility] eRadiology at [phone]. [facility] Neck W contrast IVOrdered By: Ccf Provider on 11-03-[address] [facility] HospitalEosinophils/100 WBC Auto (Bld)on 50-33-7141Klfruxoqrxg/100 WBC (Bld)Automated eosinophil %[facility] HospitalEosinophils/100 WBC (Bld)2.7 %[facility] HospitalErythrocyte distribution width Auto (RBC) [Ratio]on 99-73-1841Iasyojvfhat distribution width (RBC) [Ratio] Erythrocyte distribution width [Ratio] by Automated count11.5-15.0[facility] HospitalErythrocyte distribution width (RBC) [Ratio]14.6 % 11.5-15.0[facility] HospitalHematocrit Auto (Bld) [Volume fraction]on 72-56-2710Echhozxjcy (Bld) [Volume fraction]Hematocrit [Volume Fraction] of Blood by Automated count39.0-51.0[facility] Hematocrit (Bld) [Volume fraction]40.0 %39.0-51.0[facility] HospitalHemoglobin [Mass/volume] in Bloodon 01-70-7176Aumwctrfjc (Bld) [Mass/Vol] Hemoglobin [Mass/volume] in Blood13.0-17.0[facility] Hemoglobin (Bld) [Mass/Vol]13.6 g/dL13.0-17.0[facility] Laboratory - Hematology and Cell countson 10-95-9445Azbutwgpvbu (Bld) [#/Vol] 0.16 10*3/uL<0.46[facility] HospitalImmature granulocytes/100 WBC (Bld)0.2 %[facility] HospitalLeukocytes [#/volume] corrected for nucleated erythrocytes in Blood by Automated counon 71-97-5237SCU corrected for nucl RBC Auto (Bld) [#/Vol]Leukocytes [#/volume] corrected for nucleated erythrocytes in Blood by Automated coun3.70-11.00[facility] HospitalWBC corrected for nucl RBC Auto (Bld) [#/Vol]6.03 k/uL3.70-11.00[facility] HospitalLymphocytes Auto (Bld) [#/Vol]on 57-89-2309Jgnucrsrvnb (Bld) [#/Vol]Lymphocytes [#/volume] in Blood by Automated count1.00-4.00 [facility] HospitalLymphocytes (Bld) [#/Vol]2.73 10*3/uL1.00-4.00 [facility] HospitalLymphocytes/100 WBC Auto (Bld)on 11-03-2024 Lymphocytes/100 WBC (Bld)Lymphocytes/100 leukocytes in Blood by Automated count [facility] HospitalLymphocytes/100 WBC (Bld)45.3 %[facility] FoundationH Auto (RBC) [Entitic mass]on 80-70-5575SIT (RBC) [Entitic mass]MCH [Entitic mass] by Automated count26.0-34.0[facility] FoundationH (RBC) [Entitic mass]31.9 pg26.0-34.0[facility] HospitalMCHC Auto (RBC) [Mass/Vol]on 37-45-3217LWPR (RBC) [Mass/Vol]MCHC [Mass/volume] by Automated count30.5-36.0[facility] FoundationHC (RBC) [Mass/Vol]34.0 g/dL30.5-36.0[facility] HospitalMCV Auto (RBC) [Entitic vol]on 66-43-5518GTW (RBC) [Entitic vol]MCV [Entitic volume] by Automated count80.0-100.0[facility] HospitalMCV (RBC) [Entitic vol]93.9 fL80.0-100.0[facility] HospitalMonocytes Auto (Bld) [#/Vol]on 25-71-8611Meggjliqm (Bld) [#/Vol]Automated blood monocyte count<0.87 [facility] HospitalMonocytes (Bld) [#/Vol]0.40 10*3/uL<0.87 [facility] HospitalMonocytes/100 WBC Auto (Bld)on 11-03-2024 Monocytes/100 WBC (Bld)Automated monocyte %[facility] Monocytes/100 WBC (Bld)6.6 %[facility] HospitalNeutrophils Auto (Bld) [#/Vol]on 15-15-7057Ytqfqprmksl (Bld) [#/Vol]Neutrophils [#/volume] in Blood by Automated count1.45-7.50[facility] HospitalNeutrophils (Bld) [#/Vol]2.67 10*3/uL1.45-7.50[facility] Neutrophils/100 WBC Auto (Bld)on 49-51-1178Sakusjyqrqu/100 WBC (Bld)Automated neutrophil %[facility] HospitalNeutrophils/100 WBC (Bld)44.2 % [facility] HospitalNo Panel Informationon 45-87-3906Itqjjuerf Study observation (narrative)[facility] Granulocyte # (Auto)<0.03 k/uL<0.10[facility] HospitalNucleated RBC Auto (Bld) [#/Vol]on 39-42-0109Guwicfhiy RBC (Bld) [#/Vol]Nucleated erythrocytes [#/volume] in Blood by Automated count<0.01[facility] HospitalNucleated RBC (Bld) [#/Vol]10*3/uL<0.01[facility] HospitalNucleated erythrocytes [Presence] in Blood by Automated counton 10-73-0248Yhgntssbp RBC Auto Ql (Bld) Nucleated erythrocytes [Presence] in Blood by Automated countOhiohealth Riverside Methodist HospitalNucleated RBC Auto Ql (Bld)0.0 /100{WBC}[facility] HospitalPlatelet mean volume Auto (Bld) [Entitic vol]on 44-58-3890Hwjpksum mean volume (Bld) [Entitic vol]Platelet mean volume [Entitic volume] in Blood by Automated count9.0-12.7FTriHealth Bethesda Butler HospitalPlatelet mean volume (Bld) [Entitic vol]11.0 fL9.0-12.7FTriHealth Bethesda Butler HospitalPlatelets Auto (Bld) [#/Vol]on 62-63-0841Bjdcdllry (Bld) [#/Vol]Platelets [#/volume] in Blood by Automated -000JridvkfstOhiohealth Riverside Methodist HospitalPlatelets (Bld) [#/Vol]281 10*3/jK522-006FbxmoqduwOhiohealth Riverside Methodist HospitalRBC Auto (Bld) [#/Vol] on 42-39-9612XIB (Bld) [#/Vol]Erythrocytes [#/volume] in Blood by Automated count4.20-6.00[facility] (Bld) [#/Vol]4.26 10*6/uL 4.20-6.00[facility] HospitalMR TRANSFER OF OUTSIDE FILMSon 12-30-5553VO TRANSFER OF OUTSIDE FILMSOutside images for comparison or treatment purposes, not interpreted by Radiologists.[facility] Hospitaltudy Interpretation of outside studyon 10-21-2024 Outside images for comparison or treatment purposes, not interpreted by Radiologists.IMAGINGX-ray reportOrdered By: Dorothy Eubanks on 83-84-1031Vcwnq reportOHIOHEALTH O'[place] [address] XRay Report Signed Patient: Shantel Melendez MR#: [id number] : 1960 Acct:[id number] Age/Sex: 63 / M ADM Date: 5 Loc: XD Room: Type: [facility] Attending Dr: Solomon Narayanan PAFranC Copies to: [...] Eubanks M.D. 10/10/2024 3:02 PM Dictation Location: [place] [address] Transcribed By: [facility] 10/10/24 150 Dictated By: Dorothy Eubanks MD 10/10/24 145 Signed By: 10/10/24 1508 [facility] Work Phone: XR cervical spine 2Von 99-96-5354XM cervical spine 2V [facility] [address] [place] [address] [place] [address] XRay Report Signed Patient: Shantel Melendez MR#: [id number] : 1960 Acct:[id number] Age/Sex: 63 / M ADM Date: 10/10/24 Loc: XD Room: Type: [facility] Attending Dr: Solomon Narayanan PA-C Copies [...] Eubanks M.D. 10/10/2024 3:02 PM Dictation Location: [place] [address] Transcribed By: [facility] 10/10/24 150 Dictated By: Dorothy Eubanks MD 10/10/24 1455 Signed By: 10/10/24 1502[facility] GroupAlanine aminotransferase [Enzymatic activity/volume] in Serum or PlasmaOrdered By: Griselda Krause on 09-89-4609ZUV [Catalytic activity/Vol]Alanine aminotransferase [Enzymatic activity/volume] in Serum or PlasmaLow7-52[facility] Albumin [Mass/volume] in Serum or Plasma by Bromocresol green (BCG) dye binding methoOrdered By: Griselda Krause on 27-78-8056Ykvnqwc BCG dye [Mass/Vol]Albumin [Mass/volume] in Serum or Plasma by Bromocresol green (BCG) dye binding methoLow 3.5-5.7FTriHealth Bethesda Butler HospitalAlkaline phosphatase [Enzymatic activity/volume] in Serum or PlasmaOrdered By: Griselda Krause on 17-33-9342YOC [Catalytic activity/Vol]Alkaline phosphatase [Enzymatic activity/volume] in Serum or Knavbj43-582LvdvoizryOhiohealth Riverside Methodist HospitalAspartate aminotransferase [Enzymatic activity/volume] in Serum or PlasmaOrdered By: Griselda Krause on 19-07-8417RFT [Catalytic activity/Vol]Aspartate aminotransferase [Enzymatic activity/volume] in Serum or WwnicxYnk71-90NuxcuyxjeOhiohealth Riverside Methodist Hospital Basophils Auto (Bld) [#/Vol]Ordered By: Griselda Krause on 92-86-6507Wdoeqhyjh (Bld) [#/Vol]Automated basophil count0.0-0.2FTriHealth [facility] Hospital Basophils/100 WBC Auto (Bld)Ordered By: Griselda Krause on 75-01-4594Gpnrwjgjo/100 WBC (Bld)Automated basophil %.[facility] HospitalBilirubin.total [Mass/volume] in Serum or PlasmaOrdered By: Griselda Krause on 57-35-9941Iorjqwguq [Mass/Vol]Bilirubin.total [Mass/volume] in Serum or Plasma0.3-1.0[facility] HospitalCalcium [Mass/volume] in Serum or PlasmaOrdered By: Griselda Krause on 83-35-6410Pmtrbiv [Mass/Vol]Calcium [Mass/volume] in Serum or Plasma 8.6-10.3FTriHealth Bethesda Butler HospitalCarbon dioxide, total [Moles/volume] in Serum or PlasmaOrdered By: Griselda Krause on 92-05-5926QQ7 [Moles/Vol]Carbon dioxide, total [Moles/volume] in Serum or Bewbvu14.0-31.0[facility] HospitalChloride [Moles/volume] in Serum or PlasmaOrdered By: Griselda Krause on 39-03-5935Ughnqqxg [Moles/Vol]Chloride [Moles/volume] in Serum or Plasma 98-107[facility] HospitalCholesterol [Mass/volume] in Serum or PlasmaOrdered By: Griselda Krause 35-87-2531Iispxybpnse [Mass/Vol]Cholesterol [Mass/volume] in Serum or XpsmyxDbft416-795KqkpqxxzsOhiohealth Riverside Methodist Hospital Comment on above:Chol less than 200 mg/dl low riskChol 201-239 mg/dl borderline riskChol 240 mg/dl and greater high riskCholesterol in HDL [Mass/volume] in Serum or PlasmaOrdered By: Griselda Krause 76-26-7513Qbsmymqsokm in HDL [Mass/Vol] Serum or plasma high density lipoprotein (HDL) cholesterol aggshyhabgp21-94 [facility] HospitalComment on above:HDL CHOL ATP-III CLASSIFICATION Cardiovascular RiskHDL > or equal to 60 mg/dL LOWHDL < 40 mg/dL HIGHCholesterol in LDL Calc [Mass/Vol]Ordered By: Griselda Krause on 10-07-2024 Cholesterol in LDL [Mass/Vol]Cholesterol in LDL [Mass/volume] in Serum or Plasma by calculationHigh0-100[facility] Methodist HospitalComment on above:LDL ATP III CLASSIFICATIONLDL less than 100 mg/dL OptimalLDL 100-129 mg/dL Near or above zvwefedIOT798-077 mg/dL Borderline highLDL 160-189 mg/dL HighLDL greater than 189 mg/dL Very highCholesterol in VLDL Calc [Mass/Vol]Ordered By: Griselda Krause 87-74-8410Nuoakjhenoh in VLDL [Mass/Vol]Cholesterol in VLDL [Mass/volume] in Serum or Plasma by calculationMercy Health West Hospital Medical Center Clostridioides difficile toxin B tcdB gene [Presence] in Stool by JER with probe deteOrdered By: Manisha Negron on 10-07-2024. difficile toxin B tcdB gene JER+probe Ql (Stl)Clostridioides difficile toxin B tcdB gene [Presence] in Stool by JER with probe deteNegatKettering Health MiamisburgComment on above:Testing performed by RT-PCRClostridium Difficileon 64-37-6321Wofjmtfhasc DifficileNegativeNormalNegativeThe [facility], [facility] Care Physician GroupComment on above: Result Comment: Testing performed by RT-PCR PERFORMED BY: [place] [address] PATHOLOGIST STRINGS TEACHER RAKEL LAZARO M.D.Performed By: #### CDT #### [place] [address] USAComplete Blood Count Auto Diffon 64-58-1444Qulpiaknm (Bld) [#/Vol]0.0 10*3/uLNormal0.0-0.2The [facility] Care Physician GroupComment on above: Result Comment: PERFORMED BY: [place] [address] PATHOLOGIST STRINGS TEACHER RAKEL LAZARO M.D.Performed By: #### CBC, HEPATIC, BMP, LIPASE #### [place] [address] USABasophils/100 WBC (Bld)0.8 %Normal.The [facility] Care Physician GroupComment on above:Performed By: #### CBC, HEPATIC, BMP, LIPASE #### [place] [address] USAEosinophils (Bld) [#/Vol]0.0 10*3/uLNormal0.0-0.45The [facility] Care Physician GroupComment on above:Performed By: #### CBC, HEPATIC, BMP, LIPASE #### [place] [address] USAEosinophils/100 WBC (Bld)0.8 %Normal.[facility] Care Physician GroupComment on above:Performed By: #### CBC, HEPATIC, BMP, LIPASE #### [place] [address] USAErythrocyte distribution width (RBC) [Ratio]13.7 %Normal 12.0-14.8The [facility] Care Physician GroupComment on above:Performed By: #### CBC, HEPATIC, BMP, LIPASE #### [place] [address] USAHematocrit (Bld) [Volume fraction]36.6 %Low38.8-50.0The [facility] Physician GroupComment on above:Performed By: #### CBC, HEPATIC, BMP, LIPASE #### [place] [address] USAHemoglobin (Bld) [Mass/Vol]12.8 g/dLLow13.0-17.0[facility] Physician GroupComment on above:Performed By: #### CBC, HEPATIC, BMP, LIPASE #### [place] [address] USALymphocytes (Bld) [#/Vol]1.7 10*3/uLNormal1.00-4.8The [facility] Physician GroupComment on above:Performed By: #### CBC, HEPATIC, BMP, LIPASE #### [place] [address] USALymphocytes/100 WBC (Bld)31.1 %Normal.The [facility] Care Physician GroupComment on above:Performed By: #### CBC, HEPATIC, BMP, LIPASE #### [place] [address] USAMCH (RBC) [Entitic mass]32.4 rwZotuvh13.5-35.2The [facility] Care Physician GroupComment on above:Performed By: #### CBC, HEPATIC, BMP, LIPASE #### [place] [address] USAMCV (RBC) [Entitic vol]92.8 eZJwzdrj04.5-101The [facility] Physician GroupComment on above:Performed By: #### CBC, HEPATIC, BMP, LIPASE #### [place] [address] USAMean Corpuscular HGB Conc34.9 g/cZUcnajy88.5-35.6The [facility] Care Physician GroupComment on above:Performed By: #### CBC, HEPATIC, BMP, LIPASE #### [place] [address] USAMonocytes (Bld) [#/Vol]0.3 10*3/uLNormal0.0-0.8The [facility] Care Physician GroupComment on above:Performed By: #### CBC, HEPATIC, BMP, LIPASE #### [place] [address] USAMonocytes/100 WBC (Bld)4.9 %Normal.The [facility] Care Physician GroupComment on above:Performed By: #### CBC, HEPATIC, BMP, LIPASE #### [place] [address] USANeutrophils (Bld) [#/Vol]3.4 10*3/uLNormal1.8-7.7The [facility] Care Physician GroupComment on above:Performed By: #### CBC, HEPATIC, BMP, LIPASE #### [place] [address] USANeutrophils/100 WBC (Bld)62.4 %Normal.The [facility] Care Physician GroupComment on above:Performed By: #### CBC, HEPATIC, BMP, LIPASE #### [place] [address] USANRBC%0.0 /100{WBC}Normal0-0.5The [facility] Comment on above:Performed By: #### CBC, HEPATIC, BMP, LIPASE #### [place] [address] USAPlatelet mean volume (Bld) [Entitic vol]8.8 fLNormal 6.6-10.1The [facility] Care Physician GroupComment on above:Performed By: #### CBC, HEPATIC, BMP, LIPASE #### [place] [address] USAPlatelets (Bld) [#/Vol]343 10*3/eBWlaqwt673-236Gps [facility] Physician GroupComment on above:Performed By: #### CBC, HEPATIC, BMP, LIPASE #### [place] [address] USARBC (Bld) [#/Vol]3.94 10*6/uLNormal3.90-5.60The [facility] Care Physician GroupComment on above:Performed By: #### CBC, HEPATIC, BMP, LIPASE #### [place] [address] USAWBC (Bld) [#/Vol]5.5 10*3/uLNormal4.1-10.5The [facility] Care Physician GroupComment on above:Performed By: #### CBC, HEPATIC, BMP, LIPASE #### [place] [address] USAComprehensive Metabolic Panelon 35-64-2488Ivadyft [Mass/Vol]3.4 g/dLLow3.5-5.7The [facility] Care Physician GroupComment on above: Performed By: #### CBC, HEPATIC, BMP, LIPASE #### [place] [address] USAAlbumin/Globulin [Mass ratio]1.8 {ratio}NormalThe [facility] Care Physician GroupComment on above:Performed By: #### CBC, HEPATIC, BMP, LIPASE #### [facility] [address] [place] [address] USAALP [Catalytic activity/Vol]62 U/WWmwdas53-809Pqk [facility] Care Physician GroupComment on above:Performed By: #### CBC, HEPATIC, BMP, LIPASE #### [facility] [address] [place] [address] USAALT [Catalytic activity/Vol]6 U/LLow7-52The [facility] Care Physician GroupComment on above:Performed By: #### CBC, HEPATIC, BMP, LIPASE #### [place] [address] USAAnion gap [Moles/Vol]9.7 mmol/LNormal6.0-15.0The [facility] Care Physician GroupComment on above:Performed By: #### CBC, HEPATIC, BMP, LIPASE #### [place] [address] USAAST [Catalytic activity/Vol]8 U/HKmm61-93Ygq [facility] Care Physician GroupComment on above:Performed By: #### CBC, HEPATIC, BMP, LIPASE #### [place] [address] USABilirubin [Mass/Vol]0.6 mg/dLNormal0.3-1.0The [facility] Care Physician GroupComment on above:Performed By: #### CBC, HEPATIC, BMP, LIPASE #### [place] [address] USACalcium [Mass/Vol]9.3 mg/dLNormal8.6-10.3The [facility] Care Physician GroupComment on above:Performed By: #### CBC, HEPATIC, BMP, LIPASE #### [place] [address] USAChloride [Moles/Vol]103 mmol/KDhyawy50-840Ukw [facility] Care Physician GroupComment on above:Performed By: #### CBC, HEPATIC, BMP, LIPASE #### [place] [address] USACO2 [Moles/Vol]29.1 mmol/NXtxvop54.0-31.0The [facility] Care Physician GroupComment on above:Performed By: #### CBC, HEPATIC, BMP, LIPASE #### [place] [address] USACreatinine [Mass/Vol]0.74 mg/dLNormal0.70-1.30The [facility] Care Physician GroupComment on above:Performed By: #### CBC, HEPATIC, BMP, LIPASE #### [place] [address] USAGFR/1.73 sq M.predicted MDRD (S/P/Bld) [Vol rate/Area] mL/min/{1.73_m2}NormalThe [facility] Care Physician GroupComment on above:Performed By: #### CBC, HEPATIC, BMP, LIPASE #### [facility] [address] [place] [address] USAGlobulin (S) [Mass/Vol]1.9 g/dLNormalThe [facility] Care Physician GroupComment on above:Performed By: #### CBC, HEPATIC, BMP, LIPASE #### [facility] [address] [place] [address] USAGlucose [Mass/Vol]84 mg/tIHttuwe70-723Cpr [facility] Care Physician GroupComment on above:Result Comment: Random Glucose Reference Range is dependent on time and content of last meal. Glucose of more than 200 mg/dL in a nonstressed, ambulatory subject supports the diagnosis of Diabetes Mellitus. ADA recommended reference rangePerformed By: #### CBC, HEPATIC, BMP, LIPASE #### [facility] [address] [place] [address] USAPotassium [Moles/Vol]4.8 mmol/LNormal3.5-5.1The [facility] Care Physician GroupComment on above:Performed By: #### CBC, HEPATIC, BMP, LIPASE #### [facility] [address] [place] [address] USAProtein [Mass/Vol]5.3 g/dLLow6.4-8.9The [facility] Care Physician GroupComment on above:Performed By: #### CBC, HEPATIC, BMP, LIPASE #### [facility] [address] [place] [address] USASodium [Moles/Vol]137 mmol/FRxtfln837-705Mja [facility] Care Physician GroupComment on above:Performed By: #### CBC, HEPATIC, BMP, LIPASE #### [facility] [address] [place] [address] USAUrea nitrogen [Mass/Vol]7 mg/dLNormal7-25The [facility] Care Physician GroupComment on above:Performed By: #### CBC, HEPATIC, BMP, LIPASE #### [facility] [address] [place] [address] USACreatinine [Mass/volume] in Serum or PlasmaOrdered By: Griselda Krause on 85-68-0649Pkohuxdjsm [Mass/Vol]Creatinine [Mass/volume] in Serum or Plasma0.70-1.30[facility] HospitalEosinophils Auto (Bld) [#/Vol]Ordered By: Griselda Krause on 46-74-1436Ybwkuuzahkh (Bld) [#/Vol]Automated eosinophil count0.0-0.45[facility] HospitalEosinophils/100 WBC Auto (Bld)Ordered By: Griselda Krause on 89-34-6481Dzdkbibtasv/100 WBC (Bld)Automated eosinophil %.[facility] HospitalErythrocyte distribution width Auto (RBC) [Ratio]Ordered By: Griselda Krause on 28-05-9161Wigiythumqj distribution width (RBC) [Ratio]Erythrocyte distribution width [Ratio] by Automated count 12.0-14.8[facility] HospitalGlobulin Calc (S) [Mass/Vol]Ordered By: Griselda Krause on 46-70-8013Danqnygu (S) [Mass/Vol]Serum globulin measurement by calculation (mass/volume)[facility] HospitalGlucose [Mass/volume] in Serum or PlasmaOrdered By: Griselda Krause on 84-15-4132Geegbrp [Mass/Vol]Glucose [Mass/volume] in Serum or Xiafev00-951JfrdfbmymOhiohealth Riverside Methodist HospitalComment on above:ADA recommended reference rangeRandom Glucose Reference Range is dependent on time and content of last meal. Glucose of more than 200 mg/dL in a nonstressed, ambulatory subject supports the diagnosisof Diabetes Mellitus. Hematocrit Auto (Bld) [Volume fraction]Ordered By: Griselda Krause on 10-07-2024 Hematocrit (Bld) [Volume fraction]Hematocrit [Volume Fraction] of Blood by Automated fkkhyXqi62.8-50.0[facility] HospitalHemoglobin [Mass/volume] in BloodOrdered By: Griselda Krause on 47-36-2943Covtqdgaar (Bld) [Mass/Vol]Hemoglobin [Mass/volume] in VwiuqRhn46.0-17.0[facility] HospitalLeukocytes [#/volume] corrected for nucleated erythrocytes in Blood by Automated counOrdered By: Griselda Krause on 65-40-5171GZD corrected for nucl RBC Auto (Bld) [#/Vol]Leukocytes [#/volume] corrected for nucleated erythrocytes in Blood by Automated coun4.1-10.5FTriHealth [facility] Hospital Lipid Panelon 81-52-1789Gervsgdzwxd [Mass/Vol]204 mg/iYUvey660-042Cly [facility] Care Physician GroupComment on above:Result Comment: Chol less than 200 mg/dl low risk Chol 201-239 mg/dl borderline risk Chol 240 mg/dl and greater high riskPerformed By: #### CBC, HEPATIC, BMP, LIPASE #### [facility] [address] [place] [address] USACholesterol in HDL [Mass/Vol]35 mg/kVFqddky51-40Jyz [facility] Care Physician GroupComment on above:Result Comment: HDL CHOL ATP-III CLASSIFICATION Cardiovascular Risk HDL > or equal to 60 mg/dL LOW HDL < 40 mg/dL HIGHPerformed By: #### CBC, HEPATIC, BMP, LIPASE #### [facility] [address] [place] [address] USACholesterol.total/Cholesterol in HDL [Mass ratio]5.8 {ratio}Normal<5.0The [facility] Care Physician GroupComment on above:Performed By: #### CBC, HEPATIC, BMP, LIPASE #### [facility] [address] [place] [address] USALDL Cholesterol,Gnhufqcpxw006 mg/dLHigh0-100The [facility] Care Physician GroupComment on above:Result Comment: LDL ATP III CLASSIFICATION LDL less than 100 mg/dL Optimal LDL 100-129 mg/dL Near or above optimal LDL 130-159 mg/dL Borderline high LDL 160-189 mg/dL High LDL greater than 189 mg/dL Very highPerformed By: #### CBC, HEPATIC, BMP, LIPASE #### [facility] [address] [place] [id number] USATriglyceride w/Vvhnyp909 mg/dLNormal0-149The [facility] Care Physician GroupComment on above:Result Comment: TRIG ATP III CLASSIFICATION TRIG less than 150 mg/dL Normal TRIG 150-199 mg/dL Borderline high TRIG 200-500 mg/dL High TRIG greater than 500 mg/dL Very high Standard traceable to the Center for Disease Conrtrol and Prevention (CDC) test method.Performed By: #### CBC, HEPATIC, BMP, LIPASE #### [facility] [address] [place] [id number] USAVLDL JBAPAKIDBUB87 mg/dLNoSampson Regional Medical Center Physician GroupComment on above:Performed By: #### CBC, HEPATIC, BMP, LIPASE #### [facility] [address] [place] [address] USALymphocytes Auto (Bld) [#/Vol]Ordered By: Griselda Krause on 97-90-4857Mgoqbbcillv (Bld) [#/Vol]Lymphocytes [#/volume] in Blood by Automated count1.00-4.8[facility] HospitalLymphocytes/100 WBC Auto (Bld) Ordered By: Griselda Krause on 65-79-2549Ylgrchvkrqw/100 WBC (Bld)Lymphocytes/100 leukocytes in Blood by Automated count.[facility] FoundationH Auto (RBC) [Entitic mass]Ordered By: Griselda Krause on 32-01-3367MMQ (RBC) [Entitic mass]MCH [Entitic mass] by Automated count27.5-35.2FTriHealth Bethesda Butler HospitalMCHC Auto (RBC) [Mass/Vol]Ordered By: Griselda Krause on 00-71-0874TRCI (RBC) [Mass/Vol]MCHC [Mass/volume] by Automated count32.5-35.6FTriHealth Bethes[facility] Butler HospitalMCV Auto (RBC) [Entitic vol]Ordered By: Griselda Krause on 10-07-2024 MCV (RBC) [Entitic vol]MCV [Entitic volume] by Automated count83.5-101Ohio[facility] HospitalMonocytes Auto (Bld) [#/Vol]Ordered By: Griselda Krause on 65-47-4358Lcnethrnc (Bld) [#/Vol]Automated blood monocyte count0.0-0.8[facility] HospitalMonocytes/100 WBC Auto (Bld)Ordered By: Griselda Krause on 64-25-9648Mcjazdtmg/100 WBC (Bld)Automated monocyte %.[facility] HospitalNeutrophils Auto (Bld) [#/Vol]Ordered By: Griselda Krause on 10-07-2024 Neutrophils (Bld) [#/Vol]Neutrophils [#/volume] in Blood by Automated count 1.8-7.7FTriHealth Bethes[facility] Butler HospitalNeutrophils/100 WBC Auto (Bld)Ordered By: Griselda Krause on 43-17-4053Nqmskhietuj/100 WBC (Bld)Automated neutrophil %. [facility] HospitalNo Panel InformationOrdered By: Griselda Krause on 51-60-1720Sriojhiwz GFR (CKD-EPI)> 60.0 mL/MinOhiohealth Riverside Methodist Hospital Pharmacy Creatinine Clearance (ChemN/AFTriHealth Bethesda Butler HospitalNucleated erythrocytes [Presence] in Blood by Automated countOrdered By: Griselda Krause on 24-08-4983Zrbdieuwx RBC Auto Ql (Bld)Nucleated erythrocytes [Presence] in Blood by Automated count0-0.5FTriHealth Bethesda Butler HospitalPSA Screen (Yearly Only) on 00-13-2054YAO Screen (Yearly Only)0.670 ng/mLNormal0.000-4.000The [facility] Care Physician GroupComment on above:Result Comment: Serial tumor marker results determined by assays using different manufacturers or methods may not be comparable. [facility] printed circuit board drafter and method: Flutter DXI, CHEMILUMINESCENT IMMUNOASSAY. PERFORMED BY: [place] [address] PATHOLOGIST STRINGS TEACHER RAKEL LAZARO M.D.Performed By: #### CBC, HEPATIC, BMP, LIPASE #### [place] [address] USAPlatelet mean volume Auto (Bld) [Entitic vol]Ordered By: Griselda Krause on 19-62-8861Qelqzfxk mean volume (Bld) [Entitic vol]Platelet mean volume [Entitic volume] in Blood by Automated count6.6-10.1FTriHealth Bethesda Butler HospitalPlatelets Auto (Bld) [#/Vol]Ordered By: Griselda Krause on 10-07-2024 Platelets (Bld) [#/Vol]Platelets [#/volume] in Blood by Automated hpuaf211-326 [facility] HospitalPotassium [Moles/volume] in Serum or Plasma Ordered By: Griselda Krause on 08-04-6496Bickbbunb [Moles/Vol]Potassium [Moles/volume] in Serum or Plasma3.5-5.1FTriHealth [facility] Prostate specific Ag [Mass/volume] in Serum or PlasmaOrdered By: Griselda Krause on 96-81-4714Infsvowg specific Ag [Mass/Vol]Prostate specific Ag [Mass/volume] in Serum or Plasma0.000-4.000[facility] Methodist HospitalComment on above: Serial tumor marker results determined by assays using different manufacturers or methods may not be comparable.[facility] printed circuit board drafter and method:THELMA UNICEL DXI, CHEMILUMINESCENT IMMUNOASSAY.Protein [Mass/volume] in Serum or PlasmaOrdered By: Griselda Krause on 01-89-5915Lhubqoy [Mass/Vol]Protein [Mass/volume] in Serum or PlasmaLow6.4-8.9[facility] HospitalRBC Auto (Bld) [#/Vol]Ordered By: Griselda Krause on 27-86-1341VGG (Bld) [#/Vol] Erythrocytes [#/volume] in Blood by Automated count3.90-5.60[facility] Health Centererum or plasma albumin/globulin mass ratioOrdered By: Griselda Krause on 87-39-8961Vvekgem/Globulin [Mass ratio]Serum or plasma albumin/globulin mass ratioSamaritan North Health Centererum or plasma anion gap determination Ordered By: Griselda Krause on 80-68-2909Cjdrh gap [Moles/Vol]Serum or plasma anion gap determination6.0-15.0[facility] Centererum or plasma total cholesterol/high density lipoprotein (HDL) cholesterol mass ratOrdered By: Griselda Krause on 70-28-9379Mavvgmvglmh.total/Cholesterol in HDL [Mass ratio]Serum or plasma total cholesterol/high density lipoprotein (HDL) cholesterol mass rat<5.0 [facility] Centerodium [Moles/volume] in Serum or PlasmaOrdered By: Griselda Krause on 34-99-7869Fzzfat [Moles/Vol]Sodium [Moles/volume] in Serum or Gmtfff737-683PpldzwmztOhiohealth Riverside Methodist HospitalThyroid Stimulating Hormoneon 30-79-0226HKD Qn1.03 m[IU]/LNormal0.45-5.33The [facility] Physician GroupComment on above:Result Comment: PERFORMED BY: [address] [place] [address] PATHOLOGIST STRINGS TEACHER RAKEL LAZARO M.D.Performed By: #### CBC, HEPATIC, BMP, LIPASE #### [facility] [address] [place] [address] USAThyrotropin [Units/volume] in Serum or PlasmaOrdered By: Griselda Krause on 34-58-7210LZZ QnThyrotropin [Units/volume] in Serum or Plasma 0.45-5.33[facility] HospitalTriglyceride [Mass/volume] in Serum or PlasmaOrdered By: Griselda Krause on 63-18-0895Zvrsdvfvumzh [Mass/Vol]Triglyceride [Mass/volume] in Serum or Plasma0-149[facility] Methodist HospitalComment on above:TRIG ATP III CLASSIFICATIONTRIG less than 150 mg/dL NormalTRIG 150-199 mg/dL Borderline highTRIG 200-500 mg/dL High TRIG greater than 500 mg/dL Very highStandard traceable to the Center for Disease Conrtrol and Prevention (CDC) test method.Urea nitrogen [Mass/volume] in Serum or PlasmaOrdered By: Griselda Krause on 13-29-0760Dpge nitrogen [Mass/Vol]Urea nitrogen [Mass/volume] in Serum or Plasma7-[facility] HospitalWBC Auto (Bld) [#/Vol]Ordered By: Griselda Krause on 31-79-3841EHL (Bld) [#/Vol]Leukocytes [#/volume] in Blood by Automated count4.1-10.5FTriHealth Bethesda Butler HospitalAlanine aminotransferase [Enzymatic activity/volume] in Serum or PlasmaOrdered By: PROVIDER TEMP on 38-71-1295VIF [Catalytic activity/Vol]Alanine aminotransferase [Enzymatic activity/volume] in Serum or Plasma7-52[facility] HospitalAlbumin [Mass/volume] in Serum or Plasma by Bromocresol green (BCG) dye binding metho Ordered By: PROVIDER TEMP on 54-45-2983Ifmsufx BCG dye [Mass/Vol]Albumin [Mass/volume] in Serum or Plasma by Bromocresol green (BCG) dye binding metho 3.5-5.7FTriHealth Bethesda Butler HospitalAlkaline phosphatase [Enzymatic activity/volume] in Serum or PlasmaOrdered By: PROVIDER TEMP on 76-92-4196OVA [Catalytic activity/Vol]Alkaline phosphatase [Enzymatic activity/volume] in Serum or Nzvdlk47-777ImwcihkqrOhiohealth Riverside Methodist HospitalAppearance of UrineOrdered By: Manisha Negron on 39-10-3020Fmuacnqzvz (U)Urine appearanceCleTriHealthAspartate aminotransferase [Enzymatic activity/volume] in Serum or PlasmaOrdered By: PROVIDER TEMP on 87-74-2822AJK [Catalytic activity/Vol]Aspartate aminotransferase [Enzymatic activity/volume] in Serum or VqdajgMnp00-28VwgmdkcisOhiohealth Riverside Methodist HospitalBacteria [Presence] in Urine by AutomatedOrdered By: Manisha Negron on 32-35-0310Bzhqbmwy Auto Ql (U)Bacteria [Presence] in Urine by AutomatedNone SeenOhiohealth Riverside Methodist HospitalBasic Metabolic Panelon 09-50-5191Wcwcx gap [Moles/Vol]8.5 mmol/LNormal6.0-15.0The [facility] Physician GroupComment on above:Performed By: #### CBC, HEPATIC, BMP, LIPASE #### [facility] [address] [place] [address] USACalcium [Mass/Vol]9.5 mg/dLNormal8.6-10.3The [facility] Physician GroupComment on above:Performed By: #### CBC, HEPATIC, BMP, LIPASE #### [facility] [address] [place] [address] USAChloride [Moles/Vol]104 mmol/LQfmgfi27-876Xus [facility] Physician GroupComment on above:Performed By: #### CBC, HEPATIC, BMP, LIPASE #### [facility] [address] [place] [id number] USACO2 [Moles/Vol]28.3 mmol/SNefwmu65.0-31.0The [facility] Physician GroupComment on above:Performed By: #### CBC, HEPATIC, BMP, LIPASE #### [facility] [address] [place] [address] USACreatinine [Mass/Vol]0.82 mg/dLNormal0.70-1.30The [facility] Physician GroupComment on above:Performed By: #### CBC, HEPATIC, BMP, LIPASE #### [facility] [address] [place] [address] USACreatinine Clr Calc Sinoanlz04.52NormalThe [facility] Physician GroupComment on above:Performed By: #### CBC, HEPATIC, BMP, LIPASE #### [facility] [address] [place] [address] USAGFR/1.73 sq M.predicted MDRD (S/P/Bld) [Vol rate/Area] mL/min/{1.73_m2}NormalThe [facility] Physician GroupComment on above:Performed By: #### CBC, HEPATIC, BMP, LIPASE #### [facility] [address] [place] [address] USAGlucose [Mass/Vol]86 mg/dJOscnsy91-054Bal [facility] Physician GroupComment on above:Result Comment: Random Glucose Reference Range is dependent on time and content of last meal. Glucose of more than 200 mg/dL in a nonstressed, ambulatory subject supports the diagnosis of Diabetes Mellitus. ADA recommended reference rangePerformed By: #### CBC, HEPATIC, BMP, LIPASE #### [facility] [address] [place] [address] USAPotassium [Moles/Vol]4.8 mmol/LNormal3.5-5.1The [facility] Physician GroupComment on above:Performed By: #### CBC, HEPATIC, BMP, LIPASE #### [facility] [address] [place] [address] USASodium [Moles/Vol]136 mmol/AWdayip044-966Cwe [facility] Physician GroupComment on above:Performed By: #### CBC, HEPATIC, BMP, LIPASE #### [facility] [address] [place] [address] USAUrea nitrogen [Mass/Vol]9 mg/dLNormal7-25The [facility] Physician GroupComment on above:Performed By: #### CBC, HEPATIC, BMP, LIPASE #### [facility] [address] [place] [address] USABasophils Auto (Bld) [#/Vol]Ordered By: PROVIDER TEMP on 64-78-5844Rgenyzwcs (Bld) [#/Vol]Automated basophil count0.0-0.2FTriHealth Bethesda Butler HospitalBasophils/100 WBC Auto (Bld)Ordered By: PROVIDER TEMP on 69-62-9542Wltofyxin/100 WBC (Bld)Automated basophil %.Ohio[facility] Methodist HospitalBilirubin Test strip Ql (U)Ordered By: Manisha Negron on 10-06-2024 Bilirubin Ql (U)Bilirubin.total [Presence] in Urine by Test stripNegative [facility] HospitalBilirubin.direct [Mass/volume] in Serum or PlasmaOrdered By: PROVIDER TEMP on 93-24-6596Bckivrrwf.direct [Mass/Vol] Bilirubin.direct [Mass/volume] in Serum or Plasma0.03-0.18FTriHealth Bethesda Butler HospitalBilirubin.total [Mass/volume] in Serum or PlasmaOrdered By: PROVIDER TEMP on 30-73-1010Mnugdbsue [Mass/Vol]Bilirubin.total [Mass/volume] in Serum or Plasma0.3-1.0[facility] Methodist HospitalCT abdomen pelvis w conon 59-35-0228LX abdomen pelvis w [facility] [place] [address] CT Scan Report Signed Patient: Shantel Melendez MR#: [id number] : 1960 Acct:[id number] Age/Sex: 63 / M ADM Date: 10/06/24 Loc: ER Room: Type: [facility] ER Attending Dr: Copies to: Manisha [...] Dorothy Eubanks M.D.10/06/2024 4:08 PM Dictation Location: [place] [address] Transcribed By: [facility] 10/06/24 1608 Dictated By: Dorothy Eubanks MD 10/06/24 1556 Signed By: 10/06/24 1608[facility] Physician GroupCT soft tissue neck w [facility] 65-11-4822NB soft tissue neck w [facility] [place] [address] [place] [address] CT Scan Report Signed Patient: Shantel Melendez MR#: [id number] : 1960 Acct:[id number] Age/Sex: 63 / M ADM Date: 10/06/24 Loc: ER Room: Type: [facility] ER Attending Dr: Copies to: Manisha [...] Dorothy Eubanks M.D.10/06/2024 3:56 PM Dictation Location: [place] [address] Transcribed By: [facility] 10/06/24 1556 Dictated By: Dorothy Eubanks MD 10/06/24 1551 Signed By: 10/06/24 1556[facility] Physician GroupCalcium [Mass/volume] in Serum or PlasmaOrdered By: PROVIDER TEMP on 00-63-5256Uhlsbeh [Mass/Vol]Calcium [Mass/volume] in Serum or Plasma8.6-10.3FTriHealth Bethesda Butler HospitalCarbon dioxide, total [Moles/volume] in Serum or PlasmaOrdered By: PROVIDER TEMP on 34-77-9739TE2 [Moles/Vol]Carbon dioxide, total [Moles/volume] in Serum or Plasma 21.0-31.0[facility] Methodist HospitalChloride [Moles/volume] in Serum or PlasmaOrdered By: PROVIDER TEMP on 89-98-5580Ttiktvho [Moles/Vol]Chloride [Moles/volume] in Serum or Mydrqb46-064JweprtdstOhiohealth Riverside Methodist HospitalColor Auto (U)Ordered By: Manisha Negron on 44-31-9849Fvwca (U)Color of Urine by Auto YellowOhiohealth Riverside Methodist HospitalComplete Blood Count Auto Diffon 68-12-6138Damzebdjy (Bld) [#/Vol]0.1 10*3/uLNormal0.0-0.2The [facility] Care Physician GroupComment on above:Result Comment: PERFORMED BY: [place] [address] PATHOLOGIST STRINGS TEACHER RAKEL LAZARO M.D.Performed By: #### CBC, HEPATIC, BMP, LIPASE #### [place] [address] USABasophils/100 WBC (Bld)1.1 %Normal.The [facility] Care Physician GroupComment on above:Performed By: #### CBC, HEPATIC, BMP, LIPASE #### [facility] [address] [place] [address] USAEosinophils (Bld) [#/Vol]0.1 10*3/uLNormal0.0-0.45The [facility] Care Physician GroupComment on above:Performed By: #### CBC, HEPATIC, BMP, LIPASE #### [place] [address] USAEosinophils/100 WBC (Bld)0.9 %Normal.The [facility] Care Physician GroupComment on above:Performed By: #### CBC, HEPATIC, BMP, LIPASE #### [place] [address] USAErythrocyte distribution width (RBC) [Ratio]13.7 %Normal 12.0-14.8The [facility] Later [facility] Care Physician GroupComment on above:Performed By: #### CBC, HEPATIC, BMP, LIPASE #### [place] [address] USAHematocrit (Bld) [Volume fraction]37.0 %Low38.8-50.0The [facility] Care Physician GroupComment on above:Performed By: #### CBC, HEPATIC, BMP, LIPASE #### [place] [address] USAHemoglobin (Bld) [Mass/Vol]12.8 g/dLLow13.0-17.0The [facility] Care Physician GroupComment on above:Performed By: #### CBC, HEPATIC, BMP, LIPASE #### [place] [address] USALymphocytes (Bld) [#/Vol]2.0 10*3/uLNormal1.00-4.8The [facility] Care Physician GroupComment on above:Performed By: #### CBC, HEPATIC, BMP, LIPASE #### [place] [address] USALymphocytes/100 WBC (Bld)28.2 %Normal.The [facility] Care Physician GroupComment on above:Performed By: #### CBC, HEPATIC, BMP, LIPASE #### [place] [address] USAMCH (RBC) [Entitic mass]32.0 laQpptnn35.5-35.2The [facility] Care Physician GroupComment on above:Performed By: #### CBC, HEPATIC, BMP, LIPASE #### [place] [address] USAMCV (RBC) [Entitic vol]92.6 fGIsxjzz91.5-101The [facility] Care Physician GroupComment on above:Performed By: #### CBC, HEPATIC, BMP, LIPASE #### [place] [address] USAMean Corpuscular HGB Conc34.6 g/vKFheicv01.5-35.6The [facility] Care Physician GroupComment on above:Performed By: #### CBC, HEPATIC, BMP, LIPASE #### [place] [address] USAMonocytes (Bld) [#/Vol]0.4 10*3/uLNormal0.0-0.8The [facility] Care Physician GroupComment on above:Performed By: #### CBC, HEPATIC, BMP, LIPASE #### [place] [address] USAMonocytes/100 WBC (Bld)17.04 %Normal0.00-20.00The [facility] Care Physician GroupComment on above:Performed By: #### CBC, HEPATIC, BMP, LIPASE #### [place] [address] USAMonocytes/100 WBC (Bld)5.4 %Normal.The [facility] Care Physician GroupComment on above:Performed By: #### CBC, HEPATIC, BMP, LIPASE #### [place] [address] USANeutrophils (Bld) [#/Vol]4.7 10*3/uLNormal1.8-7.7The [facility] Care Physician GroupComment on above:Performed By: #### CBC, HEPATIC, BMP, LIPASE #### [place] [address] USANeutrophils/100 WBC (Bld)64.4 %Normal.The [facility] Care Physician GroupComment on above:Performed By: #### CBC, HEPATIC, BMP, LIPASE #### [place] [address] USANRBC%0.1 /100{WBC}Normal0-0.5The [facility] Comment on above:Performed By: #### CBC, HEPATIC, BMP, LIPASE #### [place] [address] USAPlatelet mean volume (Bld) [Entitic vol]8.4 fLNormal 6.6-10.1The [facility] Later [facility] Care Physician GroupComment on above:Performed By: #### CBC, HEPATIC, BMP, LIPASE #### [place] [address] USAPlatelets (Bld) [#/Vol]357 10*3/pUNtbfcp229-912Sgm [facility] Care Physician GroupComment on above:Performed By: #### CBC, HEPATIC, BMP, LIPASE #### [address] [place] [address] USARBC (Bld) [#/Vol]3.99 10*6/uLNormal3.90-5.60The [facility] Care Physician GroupComment on above:Performed By: #### CBC, HEPATIC, BMP, LIPASE #### [place] [address] USAWBC (Bld) [#/Vol]7.2 10*3/uLNormal4.1-10.5The [facility] Later [facility] Care Physician GroupComment on above:Performed By: #### CBC, HEPATIC, BMP, LIPASE #### [place] [address] USACreatinine [Mass/volume] in Serum or PlasmaOrdered By: PROVIDER TEMP on 38-37-7242Sixntkeffs [Mass/Vol]Creatinine [Mass/volume] in Serum or Plasma0.70-1.30Ohio[facility] Riverside Methodist HospitalDipstick and Microscopicon 32-63-4979Xisvpzevkv (U)ClearNormalClearMemorial Regional Hospital Physician GroupComment on above:Order Comment: Name Collection Type:: Clean-Voided MidstreamPerformed By: #### CBC, HEPATIC, BMP, LIPASE #### [place] [address] USABacteria,UrineNone SeenNormalNone SeenThe [facility] Care Physician GroupComment on above:Order Comment: Name Collection Type:: Clean- Voided MidstreamPerformed By: #### CBC, HEPATIC, BMP, LIPASE #### [place] [address] USABilirubin,UrineNegativeNormalNegativeThe [facility] Care Physician GroupComment on above:Order Comment: Name Collection Type:: Clean- Voided MidstreamPerformed By: #### CBC, HEPATIC, BMP, LIPASE #### [place] [address] USAColor (U)YellowNormalYellowMemorial Regional Hospital Physician Group Comment on above:Order Comment: Name Collection Type:: Clean-Voided Midstream Performed By: #### CBC, HEPATIC, BMP, LIPASE #### [address] [place] [address] USAGlucose Ql (U)NormalNormalNormalThe [facility] Care Physician GroupComment on above:Order Comment: Name Collection Type:: Clean-Voided MidstreamPerformed By: #### CBC, HEPATIC, BMP, LIPASE #### [place] [address] USAHyaline Casts,UrineNoneNormal0-8The [facility] Care Physician GroupComment on above:Order Comment: Name Collection Type:: Clean-Voided MidstreamPerformed By: #### CBC, HEPATIC, BMP, LIPASE #### [place] [address] USAKetones Ql (U)NegativeNormalNegativeMemorial Regional Hospital Physician GroupComment on above:Order Comment: Name Collection Type:: Clean- Voided MidstreamPerformed By: #### CBC, HEPATIC, BMP, LIPASE #### [place] [address] USALeukocyte esterase Test strip Ql (U)NegativeNormalNegative The [facility] Care Physician GroupComment on above:Order Comment: Name Collection Type:: Clean-Voided MidstreamPerformed By: #### CBC, HEPATIC, BMP, LIPASE #### [place] [address] USAMucus,UrineRareNormalThe [facility] Care Physician GroupComment on above:Order Comment: Name Collection Type:: Clean-Voided MidstreamResult Comment: PERFORMED BY: [place] [address] PATHOLOGIST STRINGS TEACHER RAKEL LAZARO M.D.Performed By: #### CBC, HEPATIC, BMP, LIPASE #### [place] [address] USANitrite,UrineNegativeNormalNegativeMemorial Regional Hospital Physician GroupComment on above:Order Comment: Name Collection Type:: Clean-Voided MidstreamPerformed By: #### CBC, HEPATIC, BMP, LIPASE #### [place] [address] USAOccult Blood,UrineTraceHighNegativeThe [facility] Care Physician GroupComment on above:Order Comment: Name Collection Type:: Clean-Voided MidstreamResult Comment: PERFORMED BY: [place] [address] PATHOLOGIST STRINGS TEACHER RAKEL LAZARO M.D.Performed By: #### CBC, HEPATIC, BMP, LIPASE #### [place] [address] USApH (U)5.5 [pH]Normal5.0-9.0The [facility] Comment on above:Order Comment: Name Collection Type:: Clean-Voided Midstream Performed By: #### CBC, HEPATIC, BMP, LIPASE #### [place] [address] USAProtein,UrineNegativeNormalNegativeThe [facility] Care Physician GroupComment on above:Order Comment: Name Collection Type:: Clean-Voided MidstreamPerformed By: #### CBC, HEPATIC, BMP, LIPASE #### [place] [address] USARBC,Xjcdk9-1Hhcyjm2-6Ivu [facility] Care Physician GroupComment on above:Order Comment: Name Collection Type:: Clean-Voided MidstreamPerformed By: #### CBC, HEPATIC, BMP, LIPASE #### [place] [address] USASpecificy Landers,Urine>1.536Hmbg6.001-1.030The [facility] Care Physician GroupComment on above:Order Comment: Name Collection Type:: Clean- Voided MidstreamPerformed By: #### CBC, HEPATIC, BMP, LIPASE #### [place] [address] USASquamous Epithelial Cell,Ldeqr0-6Axwree0-7Vus [facility] Care Physician GroupComment on above:Order Comment: Name Collection Type:: Clean- Voided MidstreamPerformed By: #### CBC, HEPATIC, BMP, LIPASE #### [place] [address] USAUrobilinogen,UrineNormalNormalNormalThe [facility] Physician GroupComment on above:Order Comment: Name Collection Type:: Clean- Voided MidstreamPerformed By: #### CBC, HEPATIC, BMP, LIPASE #### [facility] [address] [place] [id number] USAWBC,Zdohp9-4Jihvfq2-9Lfi [facility] Care Physician GroupComment on above:Order Comment: Name Collection Type:: Clean-Voided MidstreamPerformed By: #### CBC, HEPATIC, BMP, LIPASE #### [facility] [address] [place] [id number] USAECG 12 lead ECGon 02-35-1012LCT 12 lead ECGOHIOHEALTH O'BLENESS [facility] [place] [address] [place] [address] Electrocardiograph Report Signed Patient: Shantel Melendez MR#: [id number] : 1960 Acct:[id number] Age/Sex: 63 / M ADM Date: 10/06/24 Loc: ER Room: Type: [facility] ER Attending Dr: Ordering Provider: Manisha [...] now present Confirmed by Duke Kaufman DO ([id number]) on 10/06/2024 7:36:01 PM Referred By: Electronically Signed By: Duke Kaufman DO Transcribed By: MUS Signed By Duke Kaufman DO 5 1936[facility] Physician GroupEosinophils Auto (Bld) [#/Vol]Ordered By: PROVIDER TEMP on 62-63-8694Oyimykzyeoj (Bld) [#/Vol]Automated eosinophil count0.0-0.45Ohio[facility] Methodist HospitalEosinophils/100 WBC Auto (Bld) Ordered By: PROVIDER TEMP on 76-09-3583Lvyxeghbvbu/100 WBC (Bld)Automated eosinophil %.Ohio[facility] Methodist HospitalEpithelial cells.squamous [#/area] in Urine sediment by Automated countOrdered By: Manisha Negron on 10-06-2024 Epithelial cells.squamous Auto (Urine sed) [#/Area]Epithelial cells.squamous [#/area] in Urine sediment by Automated count0-2FTriHealth Bethesda Butler HospitalErythrocyte distribution width Auto (RBC) [Ratio]Ordered By: PROVIDER TEMP on 85-39-1840Tukjawnluiv distribution width (RBC) [Ratio]Erythrocyte distribution width [Ratio] by Automated count12.0-14.8[facility] Methodist HospitalErythrocytes [#/area] in Urine sediment by Automated countOrdered By: Manisha Negron on 99-33-2101RGL Auto (Urine sed) [#/Area]Erythrocytes [#/area] in Urine sediment by Automated count0-4FTriHealth Bethesda Butler HospitalGlobulin Calc (S) [Mass/Vol]Ordered By: PROVIDER TEMP on 53-90-6749Txqenkog (S) [Mass/Vol]Serum globulin measurement by calculation (mass/volume)Ohio[facility] Methodist HospitalGlucose [Mass/volume] in Serum or PlasmaOrdered By: PROVIDER TEMP on 93-98-0748Ccgcesy [Mass/Vol]Glucose [Mass/volume] in Serum or Mihadv92-448IdtglhjyxOhiohealth Riverside Methodist HospitalComment on above:ADA recommended reference rangeRandom Glucose Reference Range is dependent on time and content of last meal. Glucose of more than 200 mg/dL in a nonstressed, ambulatory subject supports the diagnosisof Diabetes Mellitus.Glucose [Mass/volume] in Urine by Test stripOrdered By: Manisha Negron on 56-07-3104Ggortcu Test strip (U) [Mass/Vol]Glucose [Mass/volume] in Urine by Test stripNormalOhiohealth Riverside Methodist HospitalHematocrit Auto (Bld) [Volume fraction]Ordered By: PROVIDER TEMP on 50-48-8730Mlzzwkkxsi (Bld) [Volume fraction]Hematocrit [Volume Fraction] of Blood by Automated kvnceLfk49.8-50.0[facility] Methodist HospitalHemoglobin Test strip Ql (U)Ordered By: Manisha Negron on 10-06-2024 Hemoglobin Ql (U)Hemoglobin [Presence] in Urine by Test stripHighNegative [facility] HospitalHemoglobin [Mass/volume] in BloodOrdered By: AMAN SAMUELS on 76-79-5184Wdgprpdxcv (Bld) [Mass/Vol]Hemoglobin [Mass/volume] in ThljnKuy42.0-17.0[facility] Methodist HospitalHepatic Panelon 10-06-2024 Albumin [Mass/Vol]3.6 g/dLNormal3.5-5.7The [facility] Care Physician GroupComment on above:Performed By: #### CBC, HEPATIC, BMP, LIPASE #### [facility] [address] [place] [address] USAAlbumin/Globulin [Mass ratio]1.4 {ratio}NormalThe [facility] Physician [facility] WesleyComment on above:Performed By: #### CBC, HEPATIC, BMP, LIPASE #### [facility] [address] [place] [address] USAALP [Catalytic activity/Vol]63 U/COpwzxn01-876Kat [facility] Physician GroupComment on above:Performed By: #### CBC, HEPATIC, BMP, LIPASE #### [facility] [address] [place] [address] USAALT [Catalytic activity/Vol]7 U/LNormal7-52The [facility] Physician [facility] WesleyComment on above:Performed By: #### CBC, HEPATIC, BMP, LIPASE #### [facility] [address] [place] [id number] USAAST [Catalytic activity/Vol]8 U/WTka10-15Git [facility] Physician GroupComment on above:Performed By: #### CBC, HEPATIC, BMP, LIPASE #### [facility] [address] [place] [address] USABilirubin [Mass/Vol]0.6 mg/dLNormal0.3-1.0The [facility] Care Physician GroupComment on above:Performed By: #### CBC, HEPATIC, BMP, LIPASE #### [facility] [address] [place] [address] USABilirubin,Indirect0.5 mg/dLNormalThe [facility] Physician GroupComment on above:Performed By: #### CBC, HEPATIC, BMP, LIPASE #### [facility] [address] [place] [address] USABilirubin.indirect [Mass/Vol]0.10 mg/dLNormal0.03-0.18The [facility] Physician GroupComment on above:Performed By: #### CBC, HEPATIC, BMP, LIPASE #### [facility] [address] [place] [address] USAGlobulin (S) [Mass/Vol]2.5 g/dLNoSampson Regional Medical Center Physician GroupComment on above:Performed By: #### CBC, HEPATIC, BMP, LIPASE #### [facility] [address] [place] [address] USAProtein [Mass/Vol]6.1 g/dLLow6.4-8.9The [facility] Physician GroupComment on above:Performed By: #### CBC, HEPATIC, BMP, LIPASE #### [facility] [address] [place] [address] USAHyaline casts [#/area] in Urine sediment by Automated countOrdered By: Manisha Negron on 61-00-6675Pfjqesq casts Auto (Urine sed) [#/Area]Hyaline casts [#/area] in Urine sediment by Automated count0-8[facility] Methodist HospitalKetones Test strip Ql (U)Ordered By: Manisah Negron on 26-84-9756Puobleo Ql (U)Ketones [Presence] in Urine by Test stripNegative [facility] HospitalLeukocyte esterase [Presence] in Urine by Test stripOrdered By: Manisha Negron on 08-01-0754Blnbqepog esterase Test strip Ql (U)Leukocyte esterase [Presence] in Urine by Test stripNegativeOhiohealth Riverside Methodist HospitalLeukocytes [#/area] in Urine sediment by Automated count Ordered By: Manisha Negron on 15-15-4924DXH Auto (Urine sed) [#/Area]Leukocytes [#/area] in Urine sediment by Automated count0-4FTriHealth Bethesda Butler HospitalLeukocytes [#/volume] corrected for nucleated erythrocytes in Blood by Automated counOrdered By: AMAN TEMP on 37-44-5190EYO corrected for nucl RBC Auto (Bld) [#/Vol]Leukocytes [#/volume] corrected for nucleated erythrocytes in Blood by Automated coun4.1-10.5FTriHealth Bethesda Butler HospitalLipaseon 97-18-7069Vctlsu [Catalytic activity/Vol]11.0 U/YVugted90.0-82.0The [facility] Care Physician GroupComment on above:Result Comment: PERFORMED BY: [facility] [address] [place] [address] PATHOLOGIST STRINGS TEACHER RAKEL LAZARO M.D.Performed By: #### CBC, HEPATIC, BMP, LIPASE #### [facility] [address] [place] [address] USALipase [Enzymatic activity/volume] in Serum or Plasma Ordered By: PROVIDER TEMP on 34-97-4159Lvrfms [Catalytic activity/Vol]Lipase [Enzymatic activity/volume] in Serum or Macnfj29.0-82.0[facility] Methodist HospitalLymphocytes Auto (Bld) [#/Vol]Ordered By: PROVIDER TEMP on 41-95-0219Cgbxvfpgbgo (Bld) [#/Vol]Lymphocytes [#/volume] in Blood by Automated count1.00-4.8[facility] Methodist HospitalLymphocytes/100 WBC Auto (Bld) Ordered By: PROVIDER TEMP on 17-98-0125Bradbbmfysf/100 WBC (Bld)Lymphocytes/100 leukocytes in Blood by Automated count.[facility] FoundationH Auto (RBC) [Entitic mass]Ordered By: PROVIDER TEMP on 52-26-4175ACM (RBC) [Entitic mass]MCH [Entitic mass] by Automated count27.5-35.2FTriHealth Bethesda Butler HospitalMCHC Auto (RBC) [Mass/Vol]Ordered By: PROVIDER TEMP on 39-69-1083AKNH (RBC) [Mass/Vol]MCHC [Mass/volume] by Automated count32.5-35.6FTriHealth Bethesda Butler HospitalMCV Auto (RBC) [Entitic vol]Ordered By: PROVIDER TEMP on 67-80-3333TRP (RBC) [Entitic vol]MCV [Entitic volume] by Automated count83.5-101 [facility] HospitalMonocyte distribution width [Entitic volume] in Blood by AutomatedOrdered By: PROVIDER TEMP on 95-39-9656Mbrsemjp distribution width Auto (Bld) [Entitic vol]Monocyte distribution width [Entitic volume] in Blood by Automated0.00-20.00[facility] HospitalMonocytes Auto (Bld) [#/Vol]Ordered By: PROVIDER TEMP on 82-03-9406Xubnmhlak (Bld) [#/Vol] Automated blood monocyte count0.0-0.8[facility] Monocytes/100 WBC Auto (Bld)Ordered By: PROVIDER TEMP on 35-34-9065Zqwnaotdf/100 WBC (Bld)Automated monocyte %.[facility] HospitalMucus [Presence] in Urine by AutomatedOrdered By: Manisha Negron on 17-23-4812Wgvid Auto Ql (U) Mucus [Presence] in Urine by AutomatedOhiohealth Riverside Methodist Hospital Neutrophils Auto (Bld) [#/Vol]Ordered By: PROVIDER TEMP on 10-81-4888Wpwlldmtfni (Bld) [#/Vol]Neutrophils [#/volume] in Blood by Automated count1.8-7.7FTriHealth Bethesda Butler HospitalNeutrophils/100 WBC Auto (Bld)Ordered By: PROVIDER TEMP on 88-16-9131Azcytpzgpic/100 WBC (Bld)Automated neutrophil %.[facility] HospitalNitrite Test strip Ql (U)Ordered By: Manisha Negron on 10-06-2024 Nitrite Ql (U)Nitrite [Presence] in Urine by Test stripNegativeOhiohealth Riverside Methodist HospitalNo Panel InformationOrdered By: PROVIDER TEMP on 68-42-5598Emgxyvsik GFR (CKD-EPI)> 60.0 mL/MinOhiohealth Riverside Methodist Hospital Pharmacy Creatinine Clearance (Chem91.52[facility] Nucleated erythrocytes [Presence] in Blood by Automated countOrdered By: PROVIDER TEMP on 71-80-9514Sknbuffgy RBC Auto Ql (Bld)Nucleated erythrocytes [Presence] in Blood by Automated count0-0.5FTriHealth [facility]hes[facility] Hospital Platelet mean volume Auto (Bld) [Entitic vol]Ordered By: PROVIDER TEMP on 97-18-1121Ebpcznep mean volume (Bld) [Entitic vol]Platelet mean volume [Entitic volume] in Blood by Automated count6.6-10.1FTriHealth [facility] Hospital Platelets Auto (Bld) [#/Vol]Ordered By: PROVIDER TEMP on 77-98-4776Ntsymxnvm (Bld) [#/Vol]Platelets [#/volume] in Blood by Automated -995JfscgdiunOhiohealth Riverside Methodist HospitalPotassium [Moles/volume] in Serum or PlasmaOrdered By: PROVIDER TEMP on 17-09-2371Lsdqoatyp [Moles/Vol]Potassium [Moles/volume] in Serum or Plasma3.5-5.1FTriHealth Bethesda Butler HospitalProtein Test strip (U) [Mass/Vol]Ordered By: Manisha Negron on 37-57-4440Domhisg (U) [Mass/Vol]Protein [Mass/volume] in Urine by Test stripNegativeOhiohealth Riverside Methodist Hospital Protein [Mass/volume] in Serum or PlasmaOrdered By: PROVIDER TEMP on 10-06-2024 Protein [Mass/Vol]Protein [Mass/volume] in Serum or PlasmaLow6.4-8.9[facility] Methodist HospitalRBC Auto (Bld) [#/Vol]Ordered By: PROVIDER TEMP on 42-52-9830OZD (Bld) [#/Vol]Erythrocytes [#/volume] in Blood by Automated count 3.90-5.60[facility] Health Centererum or plasma albumin/globulin mass ratioOrdered By: PROVIDER TEMP on 52-67-5987Rnryghm/Globulin [Mass ratio]Serum or plasma albumin/globulin mass ratioSamaritan North Health Centererum or plasma anion gap determinationOrdered By: PROVIDER TEMP on 22-89-0089Ooumy gap [Moles/Vol]Serum or plasma anion gap determination6.0-15.0[facility] Centererum or plasma non-glucuronidated bilirubin measurement (mass/volume)Ordered By: PROVIDER TEMP on 71-89-9397Fndnskxcg.indirect [Mass/Vol]Serum or plasma non-glucuronidated bilirubin measurement (mass/volume) [facility] Centerodium [Moles/volume] in Serum or PlasmaOrdered By: PROVIDER TEMP on 62-37-3497Dicroa [Moles/Vol]Sodium [Moles/volume] in Serum or Pnwbmp380-102UhrsgeecsSamaritan North Health Centerpecific gravity Test strip (U) [Rel density]Ordered By: Manisha Negron on 46-67-3882Vdkvpfav gravity (U) [Rel density]Specific gravity of Urine by Test stripHigh1.001-1.030[facility] Methodist HospitalUrea nitrogen [Mass/volume] in Serum or PlasmaOrdered By: PROVIDER TEMP on 87-06-9658Henz nitrogen [Mass/Vol]Urea nitrogen [Mass/volume] in Serum or Plasma7-25[facility] Methodist HospitalUrobilinogen Test strip (U) [Mass/Vol]Ordered By: Manisha Negron on 23-27-5918Doyrfbfqqplg (U) [Mass/Vol]Urobilinogen [Mass/volume] in Urine by Test stripNormalOhiohealth Riverside Methodist HospitalWBC Auto (Bld) [#/Vol]Ordered By: PROVIDER TEMP on 54-49-4939BME (Bld) [#/Vol]Leukocytes [#/volume] in Blood by Automated count 4.1-10.5FTriHealth Bethesda Butler HospitalpH Test strip (U)Ordered By: Manisha Negron on 71-46-8823qN (U)pH of Urine by Test strip5.0-9.0[facility] Methodist HospitalB-Type Natriuretic Peptideon 40-15-5009Pexwehwubee peptide B (Bld) [Mass/Vol]43.0 pg/mLNormal5-100The [facility] Physician GroupComment on above: Result Comment: PERFORMED BY: [address] [place] [address] PATHOLOGIST STRINGS TEACHER RAKEL LAZARO M.D.Performed By: #### HS TROP #### [facility] [address] [place] [address] USABasic Metabolic Panelon 90-55-1243Hsrkm gap [Moles/Vol] 11.2 mmol/LNormal6.0-15.0The [facility] Physician GroupComment on above:Performed By: #### CBC, BMP, HS TROP, BNP #### [facility] [address] [place] [address] USACalcium [Mass/Vol]9.3 mg/dLNormal8.6-10.3The [facility] Physician GroupComment on above:Performed By: #### CBC, BMP, HS TROP, BNP #### [place] [address] USAChloride [Moles/Vol]100 mmol/QEfuvew06-025Kyv [facility] Physician GroupComment on above:Performed By: #### CBC, BMP, HS TROP, BNP #### [place] [address] USACO2 [Moles/Vol]26.0 mmol/BRgzxbi99.0-31.0The [facility], Later [facility] Care Physician GroupComment on above:Performed By: #### CBC, BMP, HS TROP, BNP #### [place] [address] USACreatinine [Mass/Vol]0.91 mg/dLNormal0.70-1.30The [facility] Later [facility] Care Physician GroupComment on above:Performed By: #### CBC, BMP, HS TROP, BNP #### [place] [address] USACreatinine Clr Calc Hmelstnl27.47NormalThe [facility], Later [facility] Care Physician GroupComment on above:Result Comment: PERFORMED BY: [place] [address] PATHOLOGIST STRINGS TEACHER RAKEL LAZARO M.D.Performed By: #### CBC, BMP, HS TROP, BNP #### [place] [address] USAGFR/1.73 sq M.predicted MDRD (S/P/Bld) [Vol rate/Area] mL/min/{1.73_m2}NormalThe [facility], Later [facility] Care Physician GroupComment on above:Performed By: #### CBC, BMP, HS TROP, BNP #### [place] [address] USAGlucose [Mass/Vol]100 mg/vFLzhfvx46-190Kqi [facility] Care Physician GroupComment on above:Result Comment: Random Glucose Reference Range is dependent on time and content of last meal. Glucose of more than 200 mg/dL in a nonstressed, ambulatory subject supports the diagnosis of Diabetes Mellitus. ADA recommended reference rangePerformed By: #### CBC, BMP, HS TROP, BNP #### [place] [address] USAPotassium [Moles/Vol]4.2 mmol/LNormal3.5-5.1The [facility] Later [facility] Care Physician GroupComment on above:Performed By: #### CBC, BMP, HS TROP, BNP #### [place] [address] USASodium [Moles/Vol]133 mmol/CLao768-622Wav [facility] Care Physician GroupComment on above:Performed By: #### CBC, BMP, HS TROP, BNP #### [place] [address] USAUrea nitrogen [Mass/Vol]18 mg/dLNormal7-25The [facility] Care Physician GroupComment on above:Performed By: #### CBC, BMP, HS TROP, BNP #### [place] [address] USABasophils Auto (Bld) [#/Vol]Ordered By: Daisy Paul on 56-92-9979Nksfxyxsi (Bld) [#/Vol]Automated basophil count0.0-0.2FTriHealth Bethesda Butler HospitalBasophils/100 WBC Auto (Bld)Ordered By: Daisy Paul on 12-21-7579Oapfgguyh/100 WBC (Bld)Automated basophil %.[facility] Methodist HospitalBioFire Not Detectedon 85-05-8258AlqBqii Not DetectedNot detected NormalNot DetecteThe [facility], Later [facility] Physician GroupComment on above:Result Comment: This is a duplicate RP2.1 COVID (PCR) result to be used for statistical tracking purpose only. PERFORMED BY: [place] [address] PATHOLOGIST STRINGS TEACHER RAKEL LAZARO M.D.Performed By: #### HS TROP #### [place] [address] USACOVID-19 Detected/Not DetectedOrdered By: Daisy Paul on 93-10-7237CLYL-CoV-2 (COVID-19) RNA JER+non-probe Ql (Nph)Not detectedNot DetectPremier Health Upper Valley Medical CenterComment on above:This is a duplicate RP2.1 COVID (PCR) result to be used for statistical tracking purpose only. Calcium [Mass/volume] in Serum or PlasmaOrdered By: Daisy Paul on 09-20-2024 Calcium [Mass/Vol]Calcium [Mass/volume] in Serum or Plasma8.6-10.3FTriHealth Bethesda Butler HospitalCarbon dioxide, total [Moles/volume] in Serum or Plasma Ordered By: Daisy Paul on 77-07-1603GF0 [Moles/Vol]Carbon dioxide, total [Moles/volume] in Serum or Eamexi17.0-31.0[facility] Chloride [Moles/volume] in Serum or PlasmaOrdered By: Daisy Paul on 21-21-5119Wrckzvwm [Moles/Vol]Chloride [Moles/volume] in Serum or Mpleov37-186 [facility] HospitalComplete Blood Count Auto Diffon 09-20-2024 Basophils (Bld) [#/Vol]0.0 10*3/uLNormal0.0-0.2The [facility] Comment on above:Result Comment: PERFORMED BY: [place] [address] PATHOLOGIST STRINGS TEACHER RAKEL LAZARO M.D.Performed By: #### CBC, BMP, HS TROP, BNP #### [place] [address] USABasophils/100 WBC (Bld)0.5 %Normal.The [facility] Later [facility] Care Physician GroupComment on above:Performed By: #### CBC, BMP, HS TROP, BNP #### [place] [address] USAEosinophils (Bld) [#/Vol]0.0 10*3/uLNormal0.0-0.45The [facility] Later [facility] Care Physician GroupComment on above:Performed By: #### CBC, BMP, HS TROP, BNP #### [place] [address] USAEosinophils/100 WBC (Bld)0.1 %Normal.The [facility] Later [facility] Care Physician GroupComment on above:Performed By: #### CBC, BMP, HS TROP, BNP #### [place] [address] USAErythrocyte distribution width (RBC) [Ratio]13.9 %Normal 12.0-14.8The [facility] Later [facility] Care Physician GroupComment on above:Performed By: #### CBC, BMP, HS TROP, BNP #### [place] [address] USAHematocrit (Bld) [Volume fraction]41.1 %Qhhozu64.8-50.0The [facility] Later [facility] Care Physician GroupComment on above:Performed By: #### CBC, BMP, HS TROP, BNP #### [place] [address] USAHemoglobin (Bld) [Mass/Vol]14.1 g/yMIuyplw74.0-17.0The [facility] Physician GroupComment on above:Performed By: #### CBC, BMP, HS TROP, BNP #### [place] [address] USALymphocytes (Bld) [#/Vol]1.1 10*3/uLNormal1.00-4.8The [facility] Care Physician GroupComment on above:Performed By: #### CBC, BMP, HS TROP, BNP #### [place] [address] USALymphocytes/100 WBC (Bld)11.5 %Normal.The [facility] Care Physician GroupComment on above:Performed By: #### CBC, BMP, HS TROP, BNP #### [place] [address] USAMCH (RBC) [Entitic mass]32.1 ejVpfxzn96.5-35.2The [facility] Later [facility] Care Physician GroupComment on above:Performed By: #### CBC, BMP, HS TROP, BNP #### [place] [address] USAMCV (RBC) [Entitic vol]93.6 mELpyjyd00.5-101The [facility] Later [facility] Care Physician GroupComment on above:Performed By: #### CBC, BMP, HS TROP, BNP #### [facility] [address] [place] [address] USAMean Corpuscular HGB Conc34.3 g/sZDkkxos20.5-35.6The [facility] Care Physician GroupComment on above:Performed By: #### CBC, BMP, HS TROP, BNP #### [facility] [address] [place] [address] USAMonocytes (Bld) [#/Vol]0.5 10*3/uLNormal0.0-0.8The [facility] Care Physician GroupComment on above:Performed By: #### CBC, BMP, HS TROP, BNP #### [facility] [address] [place] [address] USAMonocytes/100 WBC (Bld)23.57 %High0.00-20.00The [facility] Care Physician GroupComment on above:Result Comment: For adults in ED, MDW > 20.0 may be associated with a higher risk of sepsis during the first 12 hrs of hospital admissionPerformed By: #### CBC, BMP, HS TROP, BNP #### [facility] [address] [place] [address] USAMonocytes/100 WBC (Bld)5.4 %Normal.The [facility] Care Physician GroupComment on above:Performed By: #### CBC, BMP, HS TROP, BNP #### [facility] [address] [place] [address] USANeutrophils (Bld) [#/Vol]8.1 10*3/uLHigh1.8-7.7The [facility] Care Physician GroupComment on above:Performed By: #### CBC, BMP, HS TROP, BNP #### [facility] [address] [place] [address] USANeutrophils/100 WBC (Bld)82.5 %Normal.The [facility] Care Physician GroupComment on above:Performed By: #### CBC, BMP, HS TROP, BNP #### [facility] [address] [place] [address] USANRBC%0.1 /100{WBC}Normal0-0.5The [facility] Comment on above:Performed By: #### CBC, BMP, HS TROP, BNP #### [facility] [address] [place] [address] USAPlatelet mean volume (Bld) [Entitic vol]8.9 fLNormal 6.6-10.1The [facility] Later [facility] Care Physician GroupComment on above:Performed By: #### CBC, BMP, HS TROP, BNP #### [facility] [address] [place] [address] USAPlatelets (Bld) [#/Vol]215 10*3/aRDwpinb035-614Ruk [facility] Care Physician GroupComment on above:Performed By: #### CBC, BMP, HS TROP, BNP #### [place] [address] USARBC (Bld) [#/Vol]4.39 10*6/uLNormal3.90-5.60The [facility] Later [facility] Care Physician GroupComment on above:Performed By: #### CBC, BMP, HS TROP, BNP #### [place] [address] USAWBC (Bld) [#/Vol]9.8 10*3/uLNormal4.1-10.5The [facility] Later [facility] Care Physician GroupComment on above:Performed By: #### CBC, BMP, HS TROP, BNP #### [place] [address] USACreatinine [Mass/volume] in Serum or PlasmaOrdered By: Daisy Paul on 58-25-9851Qufeaozodt [Mass/Vol]Creatinine [Mass/volume] in Serum or Plasma0.70-1.30[facility] Methodist HospitalECG 12 lead ECGon 49-11-8948ALO 12 lead ECGOHIOHEALTH O[facility]BLENESS [facility] [place] [address] [place] [address] Electrocardiograph Report Signed Patient: Shantel Melendez MR#: [id number] : 1960 Acct:[id number] Age/Sex: 63 / M ADM Date: 09/20/24 Loc: ER Room: Type: [facility] ER Attending Dr: Ordering Provider: Daisy [...] wave abnormality Confirmed by Daisy Paul MD ([id number]) on 09/20/2024 7:46:03 PM Referred By: Electronically Signed By: Daisy Paul MD Transcribed By: MUS Signed By Daisy Paul MD 11/[address] [place] [address] Physician GroupEosinophils Auto (Bld) [#/Vol] Ordered By: Daisy Paul on 07-02-7554Zmwqkgxxndb (Bld) [#/Vol]Automated eosinophil count0.0-0.45[facility] HospitalEosinophils/100 WBC Auto (Bld)Ordered By: Daisy Paul on 78-44-1331Xkbuviealnz/100 WBC (Bld) Automated eosinophil %.[facility] Methodist HospitalErythrocyte distribution width Auto (RBC) [Ratio]Ordered By: Daisy Paul on 52-23-8742Myjznrnszte distribution width (RBC) [Ratio]Erythrocyte distribution width [Ratio] by Automated count12.0-14.8[facility] HospitalGlucose [Mass/volume] in Serum or PlasmaOrdered By: Daisy Paul on 40-11-6601Abxpmup [Mass/Vol] Glucose [Mass/volume] in Serum or Qptltl10-872NbvuxmkqsOhiohealth Riverside Methodist Hospital Comment on above:ADA recommended reference rangeRandom Glucose Reference Range is dependent on time and content of last meal. Glucose of more than 200 mg/dL in a nonstressed, ambulatory subject supports the diagnosisof Diabetes Mellitus. Hematocrit Auto (Bld) [Volume fraction]Ordered By: Daisy Paul on 09-20-2024 Hematocrit (Bld) [Volume fraction]Hematocrit [Volume Fraction] of Blood by Automated count38.8-50.0[facility] HospitalHemoglobin [Mass/volume] in BloodOrdered By: Daisy Paul on 17-56-2336Hatjswqrjm (Bld) [Mass/Vol]Hemoglobin [Mass/volume] in Blood13.0-17.0[facility] HospitalLeukocytes [#/volume] corrected for nucleated erythrocytes in Blood by Automated counOrdered By: Daisy Paul on 20-42-6131PBK corrected for nucl RBC Auto (Bld) [#/Vol]Leukocytes [#/volume] corrected for nucleated erythrocytes in Blood by Automated coun4.1-10.5FTriHealth Bethesda Butler HospitalLymphocytes Auto (Bld) [#/Vol]Ordered By: Daisy Paul on 81-49-7636Rrmqzbqcbbb (Bld) [#/Vol]Lymphocytes [#/volume] in Blood by Automated count1.00-4.8[facility] HospitalLymphocytes/100 WBC Auto (Bld)Ordered By: Daisy Paul on 48-11-3182Flwlxyqihhx/100 WBC (Bld)Lymphocytes/100 leukocytes in Blood by Automated count.[facility] HospitalMCH Auto (RBC) [Entitic mass] Ordered By: Daisy Paul on 59-45-0452NNA (RBC) [Entitic mass]MCH [Entitic mass] by Automated count27.5-35.2FTriHealth Bethesda Butler HospitalMCHC Auto (RBC) [Mass/Vol]Ordered By: Daisy Paul on 09-57-7535ZUMU (RBC) [Mass/Vol] MCHC [Mass/volume] by Automated count32.5-35.6FTriHealth [facility] Hospital MCV Auto (RBC) [Entitic vol]Ordered By: Daisy Paul on 56-76-2344DJI (RBC) [Entitic vol]MCV [Entitic volume] by Automated count83.5-101[facility] HospitalMonocyte distribution width [Entitic volume] in Blood by Automated Ordered By: Daisy Paul on 27-85-8530Hgbtpywh distribution width Auto (Bld) [Entitic vol]Monocyte distribution width [Entitic volume] in Blood by Automated High0.00-20.00[facility] HospitalComment on above:For adults in ED, MDW > 20.0 may be associated with a higher risk of sepsis during the first 12 hrs of hospital admissionMonocytes Auto (Bld) [#/Vol]Ordered By: Daisy Paul on 24-89-5939Whxrzjcun (Bld) [#/Vol]Automated blood monocyte count 0.0-0.8[facility] HospitalMonocytes/100 WBC Auto (Bld)Ordered By: Daisy Paul on 42-63-2601Msxhtanpo/100 WBC (Bld)Automated monocyte %. [facility] HospitalNatriuretic peptide B [Mass/Vol]Ordered By: Daisy Paul on 13-55-6895Ewmtszzxolw peptide B (Bld) [Mass/Vol]BNP ser/plas 5-100[facility] HospitalNeutrophils Auto (Bld) [#/Vol]Ordered By: Daisy Paul on 34-50-5974Npwjijahcuz (Bld) [#/Vol]Neutrophils [#/volume] in Blood by Automated countHigh1.8-7.7FTriHealth [facility] Hospital Neutrophils/100 WBC Auto (Bld)Ordered By: Daisy Paul on 09-20-2024 Neutrophils/100 WBC (Bld)Automated neutrophil %.[facility] HospitalNo Panel InformationOrdered By: Daisy Paul on 68-12-8049Ekidhkbwx GFR (CKD-EPI)> 60.0 mL/MinOhiohealth Riverside Methodist HospitalPharmacy Creatinine Clearance (Chem82.47[facility] HospitalNucleated erythrocytes [Presence] in Blood by Automated countOrdered By: Daisy Paul on 09-20-2024 Nucleated RBC Auto Ql (Bld)Nucleated erythrocytes [Presence] in Blood by Automated count0-0.5FTriHealth Bethesda Butler HospitalPlatelet mean volume Auto (Bld) [Entitic vol]Ordered By: Daisy Paul on 82-31-7559Rgzkeseq mean volume (Bld) [Entitic vol]Platelet mean volume [Entitic volume] in Blood by Automated count6.6-10.1FTriHealth Bethesda Butler HospitalPlatelets Auto (Bld) [#/Vol] Ordered By: Daisy Paul on 28-24-1124Zgruzfinz (Bld) [#/Vol]Platelets [#/volume] in Blood by Automated eoycl656-591AdqmaiuqkOhiohealth Riverside Methodist Hospital Potassium [Moles/volume] in Serum or PlasmaOrdered By: Daisy Paul on 56-97-2460Qfjdkfngi [Moles/Vol]Potassium [Moles/volume] in Serum or Plasma 3.5-5.1FTriHealth Bethesda Butler HospitalRB Auto (Bld) [#/Vol]Ordered By: Daisy Paul on 91-23-1620JYO (Bld) [#/Vol]Erythrocytes [#/volume] in Blood by Automated count3.90-5.60[facility] HospitalRespiratory (Upper) Panel, PCRon 25-77-6441Oklwnltzzcu (Upper) Panel, PCRAdenovirus Not detected Bordetella parapertussis [...] Influenza A H3 Blank Space PERFORMED BY: [address] [address] PATHOLOGIST STRINGS TEACHER RAKEL LAZARO M.D.NormalMemorial Regional Hospital Physician GroupComment on above: Performed By: #### HS TROP #### [address] [address] USARespiratory pathogens DNA and RNA panel - Nasopharynx by JER with non-probe detectionOrdered By: Daisy Paul on 37-54-9715Swisohogddy pathogens DNA and RNA panel JER+non-probe (Nph)Respiratory pathogens DNA and RNA panel - Nasopharynx by JER with non-probe detectionSamaritan North Health Centererum or plasma anion gap determinationOrdered By: Daisy Paul on 80-97-4109Sqqtv gap [Moles/Vol]Serum or plasma anion gap determination6.0-15.0 [facility] Health Centerodium [Moles/volume] in Serum or PlasmaOrdered By: Daisy Paul on 67-62-4242Gidtrk [Moles/Vol]Sodium [Moles/volume] in Serum or MfkqquSnx200-716SfhochdikOhiohealth Riverside Methodist HospitalTroponin I High Sensitivityon 72-72-8446Gnmeoleu I High Nyjjwsngtcb4Lsdayc0-92Dxp [facility] Care Physician GroupComment on above:Result Comment: The Troponin units of report have been changed to meet the Chest Pain Accreditation requirement, element EC5.M1l2. Troponin units are changed from pg/ml to ng/L. Also, the decimal is removed and results are in whole numbers. PERFORMED BY: [place] [address] PATHOLOGIST STRINGS TEACHER RAKEL LAZARO M.D.Performed By: #### HS TROP #### [place] [address] USATroponin I High Vsobkkaaqiy3Orzsje0-23Rno [facility] Care Physician GroupComment on above:Result Comment: The Troponin units of report have been changed to meet the Chest Pain Accreditation requirement, element EC5.M1l2. Troponin units are changed from pg/ml to ng/L. Also, the decimal is removed and results are in whole numbers. PERFORMED BY: [place] [address] PATHOLOGIST STRINGS TEACHER RAKEL LAZARO M.D.Performed By: #### CBC, BMP, HS TROP, BNP #### [place] [address] USATroponin I.cardiac [Mass/volume] in Serum or Plasma by Detection limit <= 0.01 ng/Ordered By: Daisy Paul on 27-40-6270Ojtwcuuy I.cardiac DL <= 0.01 ng/mL [Mass/Vol]Troponin I.cardiac [Mass/volume] in Serum or Plasma by Detection limit <= 0.01 ng/0-20[facility] Comment on above:The Troponin units of report have been changed to meet the Chest Pain Accreditation requirement, element EC5.M1l2. Troponin units are changed from pg/ml to ng/L. Also, the decimal is removed and results are in whole numbers.Urea nitrogen [Mass/volume] in Serum or PlasmaOrdered By: Daisy Paul on 50-03-0716Ebnb nitrogen [Mass/Vol]Urea nitrogen [Mass/volume] in Serum or Plasma01-09[facility] HospitalWBC Auto (Bld) [#/Vol] Ordered By: Daisy Paul on 41-98-1726BAL (Bld) [#/Vol]Leukocytes [#/volume] in Blood by Automated count4.1-10.5FTriHealth Bethesda Butler HospitalX-ray report Ordered By: Gee Hutchins on 94-72-1282Xdcap reportOHIOHEALTH O'BLENESS [facility]OSPITAL Main [place] [id number] XRay Report Signed Patient: Shantel Melendez MR#: [id number] : 1960 Acct:[id number] Age/Sex: 63 / M ADM Date: 5 Loc: ER Room: Type: [facility] ER Attending Dr: Copies to: Daisy [...] Hutchins MD 09/20/241244 Signed By: 09/20/24 1247 [facility] Work Phone: XR chest 2V*on 00-63-2484PV chest 2V*[facility] [place] [address] [place] [address] XRay Report Signed Patient: Shantel Melendez MR#: [id number] : 1960 Acct:[id number] Age/Sex: 63 / M ADM Date: 09/20/24 Loc: ER Room: Type: [facility] ER Attending Dr: Copies to: Daisy [...] Gee Hutchins MD 09/20/241244 Signed By: 09/20/[address] [place] [address] Physician GroupUS ankle/arm indiceson 18-40-5875HZ ankle/arm indicesMercy Health Clermont Hospital Vascular [address] [place], [place] [address] Ultrasound Report Signed Patient: Shantel Melendez MR#: [id number] : 1960 Acct:[id number] Age/Sex: 63 / M ADM Date: 09/11/24 Loc: [facility] Room: Type: [facility] CLI Attending Dr: Ruddy Harvey MD [...] M.D.09/16/2024 2:46 PM Dictation Location: [place] [address] Tech: Agueda Helm Transcribed By: MARISA 09/16/24 1446 Dictated By: Filipe Hess MD 09/16/241444 Signed By: 09/16/[address] [place] [address] Physician GroupX-ray reportOrdered By: Yung Pozo on 1962Qeelm reportOHIOHEALTH O'BLENESS HOSPITAL Main [place] [id number] XRay Report Signed Patient: Shantel Melendez MR#: [id number] : 1960 Acct:[id number] Age/Sex: 63 / M ADM Date: 5 Loc: X Room: Type: [facility] CLI Attending Dr: Solomon Narayanan PA-C [...] Pozo Jr, DO 06/24/242005 Signed By: 06/24/[address] [place], [place] [address]XR cervical spine LAT/FLX/EXTon 18-34-2756WD cervical spine LAT/FLX/EXTOHIOHEALTH O'[place]EN[place] [address] XRay Report Signed Patient: Shantel Melendez MR#: [id number] : 1960 Acct:[id number] Age/Sex: 63 / M ADM Date: 06/24/24 Loc: XD Room: Type: [facility] Attending Dr: Solomon Narayanan PA-C Copies [...] Pozo Jr, DO 06/24/242005 Signed By: 06/24/[address] [place] [address] Physician GroupDay Kimball Hospital metabolic 2000 panelon 99-05-1740Acrzi gap [Moles/Vol]14 mmol/L10 - 20 mmol/[facility] HospitalCalcium [Mass/Vol]9 mg/dL8.6 - 10.6 mg/dLDayton Children's HospitalChloride [Moles/Vol]103 mmol/L98 - 107 mmol/[facility] HospitalCO2 [Moles/Vol]26 mmol/L21 - 32 mmol/[facility] Creatinine [Mass/Vol]0.86 mg/dL0.50 - 1.30 mg/dLUnCleveland Clinic Medina HospitaleGFR- PINFUniFlower HospitalComment on above: Calculations of estimated GFR are performed using the 2020 CKD-EPI Study Refit equation without therace variable for the IDMS-Traceable creatinine methods. https://jasn.asnjournals.org/content//ASN.7468639258 Glucose [Mass/Vol]159 mg/nBBjjk66 - 99 mg/dLUnCleveland Clinic Medina Hospital Interpretation and review of laboratory resultsAbnoalUCentervillePotassium [Moles/Vol]4.5 mmol/L3.5 - 5.3 mmol/[facility] HospitalSodium [Moles/Vol]138 mmol/L136 - 145 mmol/[facility] HospitalUrea nitrogen [Mass/Vol]14 mg/dL6 - 23 mg/dLUnCleveland Clinic Medina HospitalUnCleveland Clinic Medina HospitalAnion gap [Moles/Vol]14 mmol/LNormal 10-20UnCleveland Clinic Children's Hospital for RehabilitationComment on above:Performed By: #### 28302-1 #### TITUS Mercado ([id number]) [facility] ([facility]) [id number] [place] [address]Sslbier [Mass/Vol]9.0 mg/dLNormal8.6-10.6UnCleveland Clinic Children's Hospital for RehabilitationComment on above:Performed By: #### 46952-6 #### TITUS Mercado ([id number]) [facility] ([facility]) [id number] [place] [address]Esfzttvd [Moles/Vol]103 mmol/VMwxvme66-090XevyskdakqCleveland Clinic Children's Hospital for RehabilitationComment on above:Performed By: #### 00208-5 #### TITUS Mercado ([id number]) [facility] ([facility]) [address] [place], [place] [address]LV0 [Moles/Vol]26 mmol/GBteijc26-84TybrhvqxzmCleveland Clinic Children's Hospital for RehabilitationComment on above:Performed By: #### 62644-2 #### TITUS Mercado ([id number]) [facility] ([facility]) [id number] [place] [address]Zavzdfdvvj [Mass/Vol]0.86 mg/dLNormal0.50-1.30UnCleveland Clinic Children's Hospital for RehabilitationComment on above:Performed By: #### 17340-3 #### TITUS Mercado ([id number]) [facility] ([facility]) [id number] [place] [address]XTD/1.73 sq M.predicted MDRD (S/P/Bld) [Vol rate/Area] mL/min/{1.73_m2}Normal>60UnCleveland Clinic Children's Hospital for RehabilitationComment on above:Result Comment: Calculations of estimated GFR are performed using the 2020 CKD-EPI Study Refit equation without the race variable for the IDMS-Traceable creatinine methods. https://jasn.asnjournals.org/content//ASN.4327562813Ahiklxauc By: #### 64732-1 #### TITUS Mercado ([id number]) [facility] ([facility]) [address] [place], [place] [address]Ogcjnfp [Mass/Vol]159 mg/fBRcek31-09BsgwdouvmdCleveland Clinic Children's Hospital for RehabilitationComment on above:Performed By: #### 12960-9 #### TITUS Mercado ([id number]) [facility] ([facility]) [address] [place], [place] [address]Okppgcbrq [Moles/Vol]4.5 mmol/LNormal3.5-5.3UnCleveland Clinic Children's Hospital for RehabilitationComment on above:Performed By: #### 88598-2 #### TITUS Mercado ([id number]) [facility] ([facility]) [address] [place], [place] [address]Rihfxs [Moles/Vol]138 mmol/ZClzgji339-445QwnkyqnapxFlower HospitalComment on above:Performed By: #### 37397-1 #### TITUS Mercado ([id number]) [facility] ([facility]) [address] [place], [place] [address]Zcbj nitrogen [Mass/Vol]14 mg/dLNormal6-23Flower HospitalComment on above:Performed By: #### 43021-5 #### TITUS Mercado ([id number]) [facility] ([facility]) [address] [place] [address]BFH panel Auto (Bld)on 56-36-3996Fduntepuygi distribution width (RBC) [Ratio]13.3 %11.5 - 14.5 %[place] [facility]ematocrit (Bld) [Volume fraction]38 %Low41.0 - 52.0 %[facility] HospitalHemoglobin (Bld) [Mass/Vol]12.9 g/dLLow13.5 - 17.5 g/dLUnCleveland Clinic Medina HospitalInterpretation and review of laboratory resultsAbnormWood County HospitalH (RBC) [Entitic mass]31.9 pg26.0 - 34.0 pg [facility] HospitalMCHC (RBC) [Mass/Vol]33.9 g/dL32.0 - 36.0 g/dL [facility] HamiltonV (RBC) [Entitic vol]94 fL80 - 100 fL [facility] HospitalNucleated RBC/100 WBC (Bld) [Ratio]0 % [facility] HospitalPlatelets (Bld) [#/Vol]221 10*3/[facility] CenterRBC (Bld) [#/Vol]4.05 10*6/[facility] Medical CenterWBC (Bld) [#/Vol]9.6 10*3/[facility]view Medical CenterUnCleveland Clinic Medina HospitalErythrocyte distribution width (RBC) [Ratio]13.3 %Normal 11.5-14.5UnCleveland Clinic Children's Hospital for RehabilitationComment on above:Performed By: #### 32244-9 #### TITUS Mercado ([id number]) [facility] ([facility]) [address] [place] [address] 72126Tlilseqjzl (Bld) [Volume fraction]38.0 %Low41.0-52.0 [facility] HospitalComment on above:Performed By: #### 43241-0 #### TITUS Mercado (48129) [facility] ([facility]) [address] [place] [address] 11244Mybzzqaqvc (Bld) [Mass/Vol]12.9 g/dLLow13.5-17.5UnCleveland Clinic Children's Hospital for RehabilitationComment on above:Performed By: #### 17350-9 #### TITUS Mercado (65109) [facility] ([facility]) [address] [place] [address] 61442HGX (RBC) [Entitic mass]31.9 sbMdkvnq39.0-34.0UnCleveland Clinic Children's Hospital for RehabilitationComment on above:Performed By: #### 43313-1 #### TITUS Mercado ([id number]) [facility] ([facility]) [address] [place] [address] 06815BWOL (RBC) [Mass/Vol]33.9 g/vSRyawkr33.0-36.0UnCleveland Clinic Children's Hospital for RehabilitationComment on above:Performed By: #### 14933-9 #### TITUS Mercado (27569) [facility] ([facility]) [address] [place] [address] 88683ABV (RBC) [Entitic vol]94 aTVdxely63-494VwyrvagljmCleveland Clinic Children's Hospital for RehabilitationComment on above:Performed By: #### 20920-6 #### TITUS Mercado (72506) [facility] ([facility]) [address] [place] [address] 19162Tlsbhotvv RBC/100 WBC (Bld) [Ratio]0.0 /100 WBCsNormal0.0-0.0 [facility] HospitalComment on above:Performed By: #### 70438-0 #### TITUS Mercado (28694) [facility] ([facility]) [address] [place], [place] [address]Yrrllqbco (Bld) [#/Vol]221 x10*3/cKLwlnzb851-712LxqastodmcCleveland Clinic Children's Hospital for RehabilitationComment on above:Performed By: #### 79505-4 #### TITUS Mercado (62134) [facility] ([facility]) [address] [place], [place] [address]JDB (Bld) [#/Vol]4.05 x10*6/uLLow4.50-5.90UnCleveland Clinic Children's Hospital for RehabilitationComment on above:Performed By: #### 22107-7 #### TITUS PAYANMOTZER L (25239) [facility] ([facility]) [address] [place], [place] [address]SHG (Bld) [#/Vol]9.6 x10*3/uLNormal4.4-11.3UnCleveland Clinic Children's Hospital for RehabilitationComment on above:Performed By: #### 63397-3 #### TITUS Mercado (57456) [facility] ([facility]) [address] [place] [address] 88675JK CERVICAL SPINE 2-3 VIEWSon 59-43-7653ZL CERVICAL SPINE 2-3 VIEWSInterpreted By: Shubham Eubanks, STUDY: Cervical spine dated 04/10/2024. INDICATION: Signs/Symptoms:Post surgery COMPARISON: None. ACCESSION NUMBER(S): [id number] ORDERING CLINICIAN: DORETHA HARRIS TECHNIQUE: Two views [...] Shubham Eubanks 04/10/2024 10:05 AM Dictation workstation: [id number]a Toledo HospitalComment on above:Order Comment: Please have patient uprightXR Cervical spine 2 or 3 Viewson 20-85-5525Shbufhkp and degenerative change as above without osseous injury evident. MACRO: None Signed by: Shubham Eubanks 04/10/2024 10:05 AM Dictation workstation: [id number] By: Shubham Eubanks, STUDY: Cervical spine dated 04/10/2024. INDICATION: Signs/Symptoms:Post surgery COMPARISON: None. ACCESSION NUMBER(S): [id number] ORDERING CLINICIAN: DORETHA HARRIS TECHNIQUE: Two views [...] INDICATION: Signs/Symptoms:Post surgery COMPARISON: None. ACCESSION NUMBER(S): [id number] ORDERING CLINICIAN: DORETHA HARRIS TECHNIQUE: Two views [...] Shubham Eubanks 04/10/2024 10:05 AM Dictation workstation: [id number] [facility] Work Phone: Radiology Study observation (narrative)[facility] Work Phone: XR Cervical spine 2 or 3 ViewsOrdered By: Shubham Eubanks on 68-38-4948EsgynzhamiDayton Children's Hospital Work Phone: Blood type and Indirect antibody screen panel (Bld)on 75-65-4037MYT group Nom (Bld)AUnCleveland Clinic Medina HospitalBlood group antibody screen QlNegativeUnCleveland Clinic Medina HospitalD Ag Ql (Bld)Positive [facility]'s HospitalUnCleveland Clinic Medina HospitalABO group Nom (Bld)ANormRegional Medical CenterComment on above:Order Comment: As needed for scheduled for aortic, liver, cardiac, or thoracic surgery OR hgb<7.5mg/dl and no active type and screen.Performed By: #### 50582-5 #### TITUS Mercado ([id number]) [facility] ([facility]) [address] [place] [address] 40164Gwkpo group antibody screen QlNegativeNoLouis Stokes Cleveland VA Medical CenterComment on above:Order Comment: As needed for scheduled for aortic, liver, cardiac, or thoracic surgery OR hgb<7.5mg/dl and no active type and screen.Performed By: #### 05063-7 #### TITUS Mercado ([id number]) [facility] ([facility]) [address] [place] [address] 92533N Ag Ql (Bld)PositiveProMedica Toledo HospitalComment on above:Order Comment: As needed for scheduled for aortic, liver, cardiac, or thoracic surgery OR hgb<7.5mg/dl and no active type and screen.Performed By: #### 73822-7 #### TITUS Mercado (22959) [facility] ([facility]) [address] [place] [address] 95808VT FLUORO IMAGES NO CHARGEon 29-14-6519RU FLUORO IMAGES NO CHARGEThese images are not reportable by radiology and will not be interpreted by Radiologists.NormalFlower HospitalGas and Carbon monoxide and Electrolytes panel (BldA)on 45-96-2676Mjlzg gap 4 (BldA) [Moles/Vol]8LowDayton Children's HospitalBase excess Calc (Bld) [Moles/Vol]-1.9000 mmol/L-2.0 - 3.0 mmol/[facility] Calcium.ionized (BldA) [Moles/Vol]1.24 mmol/L1.10 - 1.33 mmol/[facility] HospitalChloride (BldA) [Moles/Vol]104 mmol/L98 - 107 mmol/L [facility] HospitalCO2 (Bld) [Partial pressure]46 mm[Hg]High [facility] HospitalGlucose [Mass/Vol]132 mg/mQYbuz41 - 99 mg/dL [facility] HospitalHCO3 (Bld) [Moles/Vol]24.3 mmol/L22.0 - 26.0 mmol/[facility] HospitalHematocrit Est (Bld) [Volume fraction]39 %Low41.0 - 52.0 %[facility] HospitalHemoglobin (Bld) [Mass/Vol] 12.9 g/dLLow13.5 - 17.5 g/dLDayton Children's HospitalInhaled oxygen puoymdkaoemuf37 %[facility] HospitalInterpretation and review of laboratory resultsAbnormalUniversClark Memorial Health[1]Lactate (BldA) [Moles/Vol]0.7 mmol/L0.4 - 2.0 mmol/[facility] HospitalOxygen (Bld) [Partial pressure]156 mm[Hg]HighUnCleveland Clinic Medina Hospital Oxyhemoglobin (BldA) [Mass fraction]95 %94.0 - 98.0 %[facility]'s HospitalpH (Bld)7.33 [pH]Low7.38 - 7.42 pHUnCleveland Clinic Medina Hospital Potassium (BldA) [Moles/Vol]4.5 mmol/L3.5 - 5.3 mmol/[facility] HospitalSodium (BldA) [Moles/Vol]132 mmol/OZug896 - 145 mmol/[facility] HospitalUnCleveland Clinic Medina HospitalAnion gap 4 (BldA) [Moles/Vol]8 mmo/HMyx73-70PurazdfnskCleveland Clinic Children's Hospital for RehabilitationComment on above:Performed By: #### 28031-4 #### TITUS Mercado (89644) [facility] ([facility]) [address] [place] [address] 19346Czdf excess Calc (Bld) [Moles/Vol]-1.9000 mmol/LNormal -2.0-3.0Flower HospitalComment on above:Performed By: #### 06858-6 #### ITTUS Mercado ([id number]) [facility] ([facility]) [address] [place] [address] 52217Lkhapgq.ionized (BldA) [Moles/Vol]1.24 mmol/LNormal1.10-1.33 [facility] HospitalComment on above:Performed By: #### 57271-8 #### TITUS Mercado (95259) [facility] ([facility]) [address] [place] [address] 11907Jtjbyecs (BldA) [Moles/Vol]104 mmol/OLgicud69-495HkvzzcsoboCleveland Clinic Children's Hospital for RehabilitationComment on above:Performed By: #### 48083-3 #### TITUS Mercado (38159) [facility] ([facility]) [address] [place] [address] 16167HQ1 (Bld) [Partial pressure]46 mm JmZulf37-18YyuribtimjFlower HospitalComment on above:Performed By: #### 64154-6 #### TITUS Mercado (80656) [facility] ([facility]) [address] [place] [address] 55596Fztrcls [Mass/Vol]132 mg/zZOcop26-25EjeutqwuxrFlower HospitalComment on above:Performed By: #### 39194-6 #### TITUS Mercado (95783) [facility] ([facility]) [address] [place] [address] 93383XWP9 (Bld) [Moles/Vol]24.3 mmol/UBcdjxy17.0-26.0Flower HospitalComment on above:Performed By: #### 31958-4 #### TITUS Mercado (42436) [facility] ([facility]) [address] [place] [address] 37883Osvgatyfse Est (Bld) [Volume fraction]39.0 %Low41.0-52.0 Flower HospitalComment on above:Performed By: #### 60429-7 #### TITUS Mercado (01159) [facility] ([facility]) [address] [place] [address] 21527Frlsmldzbm (Bld) [Mass/Vol]12.9 g/dLLow13.5-17.5UnCleveland Clinic Children's Hospital for RehabilitationComment on above:Performed By: #### 47213-7 #### TITUS Mercado (08303) [facility] ([facility]) [address] [place] [address] 61928Fjgsxhq oxygen rdyuthpdrtcnh21 %NormalUnCleveland Clinic Children's Hospital for RehabilitationComment on above:Performed By: #### 13215-9 #### TITUS Mercado (55249) [facility] ([facility]) [address] [place] [address] 28433Wqfolcr (BldA) [Moles/Vol]0.7 mmol/LNormal0.4-2.0UnCleveland Clinic Children's Hospital for RehabilitationComment on above:Performed By: #### 49930-7 #### TITUS Mercado (63620) [facility] ([facility]) [address] [place] [address] 68834Vqxnkx (Bld) [Partial pressure]156 mm VkXbup58-27YwgxrtpywbCleveland Clinic Children's Hospital for RehabilitationComment on above:Performed By: #### 65703-9 #### TITUS Mercado (41484) [facility] ([facility]) [address] [place] [address] 26490Fpzpmexkndxjk (BldA) [Mass fraction]95.0 %Xysmfz87.0-98.0 [facility]lower HospitalComment on above:Performed By: #### 98199-1 #### TITUS Mercado (69699) [facility] ([facility]) [address] [place] [address] 07159rD (Bld)7.33 [pH]Low7.38-7.42Flower HospitalComment on above:Performed By: #### 42586-9 #### TITUS Mercado (55414) [facility] ([facility]) [address] [place] [address] 83887Xxrzvdman (BldA) [Moles/Vol]4.5 mmol/LNormal3.5-5.3Flower HospitalComment on above:Performed By: #### 64244-9 #### TITUS Mercado (15347) [facility] ([facility]) [address] [place] [address] 30799Gtqpvn (BldA) [Moles/Vol]132 mmol/YEeq476-992FmtawjufrlFlower HospitalComment on above:Performed By: #### 77279-9 #### TITUS Mercado (37294) [facility] ([facility]) [address] [place] [address] 85046GR tomography Unspecified body regionon 15-76-3587Iymga images are not reportable by radiology and will not be interpreted by Radiologists.IMAGINGCT TRANSFER OF OUTSIDE FILMSon 90-48-3446JB TRANSFER OF OUTSIDE FILMSOutside images for comparison or treatment purposes, not interpreted by Radiologists.NormalUpper Valley Medical Centertudy Interpretation of outside studyon 07-33-2283Whrajqo images for comparison or treatment purposes, not interpreted by Radiologists.IMAGINGBlood type and Indirect antibody screen panel (Bld)on 90-51-5265WQL group Nom (Bld)ANoLouis Stokes Cleveland VA Medical CenterComment on above:Performed By: #### 05838-7 #### TITUS Mercado (10270) [facility] ([facility]) [address] [place] [address] 78728Iddjp group antibody screen QlNegativeNoLouis Stokes Cleveland VA Medical CenterComment on above:Performed By: #### 74487-0 #### TITUS Mercado (74506) [facility] ([facility]) [address] [place] [address], [place] [address]Y Ag Ql (Bld)Highland District HospitalComment on above:Performed By: #### 53215-7 #### TITUS Mercado ([id number]) [facility] ([facility]) [address] [place], [place] [address]WDWT BONE DENSITYon 10-21-0760VZNC BONE DENSITYInterpreted By: Ruddy Lopez, STUDY: DEXA BONE DENSITY02/13/2024 10:50 am INDICATION: Signs/Symptoms:r/o osteoporosis, NEED AXIAL SKELETON IMAGES.. The patient is a 63 y/o year old M. ,M54.12 Radiculopathy, cervical region COMPARISON: None. ACCESSION NUMBER(S): [id number] ORDERING CLINICIAN: DORETHA HARRIS TECHNIQUE: DEXA BONE [...] Ruddy Lopez 12/29/2024 8:09 AM Dictation workstation: [id number] Health St. Elizabeth Youngstown HospitalDXA Skeletal system Views for bone densityon 73-32-7821Hecax images are not reportable by radiology and will not be interpreted by Radiologists.IMAGINGXR CERVICAL SPINE COMPLETE 6+ VIEWSon 16-22-6324LD CERVICAL SPINE COMPLETE 6+ VIEWSInterpreted By: Romulo Medrano, STUDY: XR CERVICAL SPINE COMPLETE 6+ VIEWS; ; 02/13/2024 11:10 am INDICATION: Signs/Symptoms:r/o instability, assess alignment. ,M54.12 Radiculopathy, cervical region COMPARISON: None. ACCESSION NUMBER(S): [id number] ORDERING CLINICIAN: DORETHA HARRIS FINDINGS: C-spine, 6 [...] Romulo Medrano 02/19/2024 6:35 PM Dictation workstation: [id number] Health St. Elizabeth Youngstown HospitalComment on above:Order Comment: Please obtain with flexion and extensionXR CHEST 2 VIEWSon 28-21-5864EE CHEST 2 VIEWSInterpreted By: Romulo Medrano, STUDY: XR CHEST 2 VIEWS; 02/13/2024 11:10 am INDICATION: Signs/Symptoms:Preop surgery 02/[address] Steven MD. ,M54.12 Radiculopathy, cervical region,M81.0 Age-related osteoporosis without current pathological fracture COMPARISON: None. ACCESSION NUMBER(S): [id number] ORDERING CLINICIAN: DORETHA HARRIS FINDINGS: CARDIOMEDIASTINAL SILHOUETTE: Cardiomediastinal silhouette is normal in size and configuration. LUNGS: Lungs are clear. ABDOMEN: No remarkable upper abdominal findings. BONES: No acute osseous changes. IMPRESSION: 1. No evidence of acute cardiopulmonary process. MACRO: None Signed by: Romulo Medrano 02/19/2024 6:53 PM Dictation workstation: [id number] Memorial HospitalEC 12 leadOrdered By: Tobi Rico on 07-20-6784Udaygb Gvfd69XSP [facility] Work Phone: [phone] Vikt08pzavjlmBvdunlqzwlTwin City Hospital Work Phone: [phone] Niirba860 [facility] Work Phone: P Onset90 [facility] Work Phone: PR Ulzkxdoh544 [facility] Work Phone: Q Dpsoe462 [facility] Work Phone: QRS Ochkw78lyblmEaxglrorecMcKitrick Hospital Work Phone: QRS Odklmibj01 [facility] Work Phone: QT Hubhngfz000 [facility] Work Phone: QTC Calculation(Bazett)415 [facility] Work Phone: QTC Cbdwbcuwrj730 [facility] Work Phone: [phone] [place]-3degSheltering [facility] Work Phone: [phone] Rjvg70yiujlqrByswgrfkepTwin City Hospital Work Phone: [phone] Bohofj785 [facility] Work Phone: [phone] Gdmz08LYXHqcpjavkgrPremier Health [facility] Work Phone: [phone] Work Phone: [phone] 12 leadon 84-32-9697Fgawq rhythm with 1st degree AV block Otherwise normal ECG When compared with ECG of 30-JAN-2019 19:26, heart rate decreased Confirmed by Tobi Rico ([id number]) on 02/12/2024 12:20:00 PMTobi Keller MD - 02/12/2024 Sinus rhythm with 1st degree AV block Otherwise normal ECG When compared with ECG of 30-JAN-2019 19:26, heart rate decreased Confirmed by Tobi Rico ([id number]) on 02/12/2024 12:20:00 PM [facility] Work Phone: basic metabolic 2000 panelon 25-82-8011Mtulm gap [Moles/Vol]13 mmol/NIkdbno15-80BosfszmlraCleveland Clinic Children's Hospital for Rehabilitation Comment on above:Performed By: #### 64407-0 #### TITUS Mercado ([id number]) [facility] ([facility]) [address] [place] [address] 93264Ovjhhns [Mass/Vol]9.6 mg/dLNormal8.6-10.6Flower HospitalComment on above:Performed By: #### 35174-4 #### TITUS Mercado (89230) [facility] ([facility]) [address] [place], [place] [address]Magsrqhz [Moles/Vol]104 mmol/XUbwgvy23-715AshnfjqxpaCleveland Clinic Children's Hospital for RehabilitationComment on above:Performed By: #### 59020-6 #### TITUS Mercado (23081) [facility] ([facility]) [address] [place] [address] 55486XA7 [Moles/Vol]26 mmol/ZKbvadz06-33ZfuvgfqafyCleveland Clinic Children's Hospital for RehabilitationComment on above:Performed By: #### 07269-9 #### TITUS Mercado (20096) [facility] ([facility]) [address] [place], [place] [address]Zcdjjqwaku [Mass/Vol]0.89 mg/dLNormal0.50-1.30UnCleveland Clinic Children's Hospital for RehabilitationComment on above:Performed By: #### 16054-7 #### TITUS Mercado (34583) [facility] ([facility]) [address] [place], [place] [address]XTV/1.73 sq M.predicted MDRD (S/P/Bld) [Vol rate/Area] mL/min/{1.73_m2}Normal>60UnCleveland Clinic Children's Hospital for RehabilitationComment on above:Result Comment: Calculations of estimated GFR are performed using the 2020 CKD-EPI Study Refit equation without the race variable for the IDMS-Traceable creatinine methods. https://jasn.asnjournals.org/content//ASN.4935497983Pqdvbzddk By: #### 55005-7 #### TITUS Mercado (57734) [facility] ([facility]) [address] [place] [address] 82757Snaxxqp [Mass/Vol]77 mg/eNPsfqod61-59GymgnutzjhFlower HospitalComment on above:Performed By: #### 08557-6 #### TITUS Mercado (67208) [facility] ([facility]) [address] [place] [address] 38600Ovgltgkgd [Moles/Vol]4.6 mmol/LNormal3.5-5.3Flower HospitalComment on above:Performed By: #### 36389-2 #### TITUS Mercado (27047) [facility] ([facility]) [address] [place] [address] 65255Xurlmo [Moles/Vol]138 mmol/JFxxjuv314-058OcwrvqhqxcCleveland Clinic Children's Hospital for RehabilitationComment on above:Performed By: #### 41904-5 #### TITUS Mercado (93320) [facility] ([facility]) [address] [place] [address] 10209Deec nitrogen [Mass/Vol]9 mg/dLNormal6-23Flower HospitalComment on above:Performed By: #### 21552-8 #### TITUS Mercado (77493) [facility] ([facility]) [address] [place] [address] 36442Nwmri type and Indirect antibody screen panel (Bld)on 24-17-3779LOB group Nom (Bld)ANoalUniBluffton HospitalComment on above:Performed By: #### 08739-5 #### TITUS Mercado (12145) [facility] ([facility]) [address] [place], [place] [address]Hbyji group antibody screen QlNegativeProMedica Toledo HospitalComment on above:Performed By: #### 55055-3 #### TITUS Mercado (84318) [facility] ([facility]) [address] [place], [place] [address]Y Ag Ql (Bld)PositiveProMedica Toledo HospitalComment on above:Performed By: #### 64512-3 #### TITUS Mercado (34790) [facility] ([facility]) [address] [place], [place] [address]HUX W Auto Differential panel (Bld)on 34-94-0268Fqvwapjpt (Bld) [#/Vol]0.04 x10*3/uLNormal0.00-0.10Flower HospitalComment on above:Performed By: #### 84259-8 #### TITUS Mercado (99525) [facility] ([facility]) [address] [place], [place] [address]Ejupztkpg/100 WBC (Bld)0.8 %Normal0.0-2.0Flower HospitalComment on above:Performed By: #### 88827-4 #### TITUS Mercado (39038) [facility] ([facility]) [address] [place], [place] [address]Cgfqnbwztdo (Bld) [#/Vol]0.05 x10*3/uLNormal0.00-0.70 Flower HospitalComment on above:Performed By: #### 50721-8 #### TITUS Mercado (03840) [facility] ([facility]) [address] [place], [place] [address]Ysgmfxcxvfu/100 WBC (Bld)1.0 %Normal0.0-6.0Flower HospitalComment on above:Performed By: #### 28678-4 #### TITUS Mercado (11015) [facility] ([facility]) [address] [place] [address] 64269Jxegnksgukp distribution width (RBC) [Ratio]13.2 %Normal 11.5-14.5UnCleveland Clinic Children's Hospital for RehabilitationComment on above:Performed By: #### 54363-9 #### TITUS Mercado (44413) [facility] ([facility]) [address] [place] [address] 85293Zxxdactxvw (Bld) [Volume fraction]39.6 %Low41.0-52.0 Flower HospitalComment on above:Performed By: #### 53218-5 #### TITUS Mercado (24485) [facility] ([facility]) [address] [place] [address] 49438Pndiympbwz (Bld) [Mass/Vol]13.2 g/dLLow13.5-17.5UnCleveland Clinic Children's Hospital for RehabilitationComment on above:Performed By: #### 54313-4 #### TITUS Mercado (94177) [facility] ([facility]) [address] [place] [address] 73592Nhlbtmqa granulocytes (Bld) [#/Vol]0.00 x10*3/uLNormal 0.00-0.70UnCleveland Clinic Children's Hospital for RehabilitationComment on above:Performed By: #### [id number] #### TITUS Mercado ([id number]) [facility] ([facility]) [id number] [place] [address] 92740Zomwxdlu granulocytes/100 WBC (Bld)0.0 %Normal0.0-0.9 [facility] HospitalComment on above:Result Comment: Immature Granulocyte Count (IG) includes promyelocytes, myelocytes and metamyelocytes but does not include bands. Percent differential counts (%) should be interpreted in the context of the absolute cell counts (cells/UL). Performed By: #### [id number] #### TITUS Mercado ([id number]) [facility] ([facility]) [address] [place] [address] 05777Agnkdlqqpma (Bld) [#/Vol]1.74 x10*3/uLNormal1.20-4.80 [facility] HospitalComment on above:Performed By: #### [id number] #### TITUS Mercado ([id number]) [facility] ([facility]) [address] [place], [place] [address]Qbuznozmocj/100 WBC (Bld)33.1 %Ykcypf86.0-44.0UnCleveland Clinic Children's Hospital for RehabilitationComment on above:Performed By: #### [id number] #### TITUS Mercado ([id number]) [facility] ([facility]) [address] [place] [address] 44021KDL (RBC) [Entitic mass]31.5 opPxaduo80.0-34.0UnCleveland Clinic Children's Hospital for RehabilitationComment on above:Performed By: #### 95701-0 #### TITUS Mercado ([id number]) [facility] ([facility]) [id number] [place] [address] 33161LWIC (RBC) [Mass/Vol]33.3 g/mIVgpskq36.0-36.0UnCleveland Clinic Children's Hospital for RehabilitationComment on above:Performed By: #### [id number] #### TITUS Mercado ([id number]) [facility] ([facility]) [address] [place] [address] [id number] (RBC) [Entitic vol]95 eAOmaaxd62-986YcvyazetbdCleveland Clinic Children's Hospital for RehabilitationComment on above:Performed By: #### [id number] #### TITUS Mercado ([id number]) [facility] ([facility]) [address] [place] [address] 72434Sizltdwkm (Bld) [#/Vol]0.30 x10*3/uLNormal0.10-1.00UnCleveland Clinic Children's Hospital for RehabilitationComment on above:Performed By: #### 27398-2 #### TITUS Mercado ([id number]) [facility] ([facility]) [address] [place] [address] 33152Ulzzkohlt/100 WBC (Bld)5.7 %Normal2.0-10.0UnCleveland Clinic Children's Hospital for RehabilitationComment on above:Performed By: #### [id number] #### TITUS Mercado ([id number]) [facility] ([facility]) [address] [place] [address] 98690Wnpysyzfuzm (Bld) [#/Vol]3.13 x10*3/uLNormal1.20-7.70 Flower HospitalComment on above:Result Comment: Percent differential counts (%) should be interpreted in the context of the absolute cell counts (cells/uL).Performed By: #### 30898-4 #### TITUS Mercado ([id number]) [facility] ([facility]) [address] [place] [address] 71039Pyzycrfcgmo/100 WBC (Bld)59.4 %Xrkyxp19.0-80.0UnCleveland Clinic Children's Hospital for RehabilitationComment on above:Performed By: #### 55383-5 #### TITUS Mercado ([id number]) [facility] ([facility]) [address] [place] [address] 42106Uojroeujg RBC/100 WBC (Bld) [Ratio]0.0 /100 WBCsNormal0.0-0.0 Flower HospitalComment on above:Performed By: #### 41491-2 #### TITUS Mercado ([id number]) [facility] ([facility]) [address] [place] [address] 51451Piyayiwql (Bld) [#/Vol]271 x10*3/lXUafjwq591-685XbtgtyggdfCleveland Clinic Children's Hospital for RehabilitationComment on above:Performed By: #### 89911-5 #### TITUS Mercado ([id number]) [facility] ([facility]) [address] [place] [address] 01126MOY (Bld) [#/Vol]4.19 x10*6/uLLow4.50-5.90UnCleveland Clinic Children's Hospital for RehabilitationComment on above:Performed By: #### 18577-7 #### TITUS Mercado ([id number]) [facility] ([facility]) [address] [place], [place] [address]SHX (Bld) [#/Vol]5.3 x10*3/uLNormal4.4-11.3Flower HospitalComment on above:Performed By: #### 04904-1 #### TITUS Mercado ([id number]) [facility] ([facility]) [address] [place], [place] [address]VPM 12-LEADon 32-56-3180RPC 12-LEADVentricular Rate 63 Atrial Rate 63 P-R Interval 268 QRS Duration 74 Q-T Interval 406 QTC Calculation(Bazett) 415 P [place] 58 R [place] -3 T [place] 18 QRS Count 10 Q Onset 224 P Onset 90 P Offset 149 T Offset 427 QTC Fredericia 412 Diagnosis Sinus rhythm with 1st degree AV block Otherwise normal ECG When compared with ECG of 30-JAN-2019 19:26, heart rate decreased Confirmed by Tobi Rico ([id number]) on 02/12/2024 12:20:00 PMNEssentia HealthNICOTINE AND METABOLITES,Son 11-56-1547Wuouukbc [Mass/Vol]152 ng/mLNormalFlower HospitalComment on above: Performed By: #### NI+ME #### [facility] ([place]) ([id number]) [address] [place], [place] [address]Outqjzee [Mass/Vol]6 ng/mLNKettering Health Behavioral Medical CenterComment on above:Result Comment: INTERPRETIVE INFORMATION: [...] developed and its performance characteristics determined by [employer]. It has not been cleared or approved by the US Food and Drug Administration. This test was performed in a CLIA certified laboratory and is intended for clinical purposes. Performed By: [facility] [address] [place] [address] Shopper Marketing Manager: Benjamin Bullock MD, PhD CLIA Number: [id number] By: #### NI+ME #### [facility] ([place]) ([id number]) [address] [place], [place] [address]YV and aPTT panel Coag (PPP)on 98-06-9906hQQU Coag (PPP) [Time]33 ySwcmww65-78VlvdtgiejcCleveland Clinic Children's Hospital for RehabilitationComment on above:Order Comment: The APTT is no longer used for monitoring Unfractionated Heparin Therapy. For monitoring Heparin Therapy, use the Heparin Assay.Performed By: #### 88400-2 #### TITUS Mercado ([id number]) [facility] ([facility]) [address] [place] [address] 23173DOF Coag (PPP) [Relative time]1.7Zphjxi0.9-1.1UnCleveland Clinic Children's Hospital for RehabilitationComment on above:Order Comment: The APTT is no longer used for monitoring Unfractionated Heparin Therapy. For monitoring Heparin Therapy, use the Heparin Assay.Performed By: #### 73039-0 #### TITUS Mercado ([id number]) [facility] ([facility]) [address] [place] [address] 25147CO Coag (PPP) [Time]11.5 sNormal9.8-12.8Flower HospitalComment on above:Order Comment: The APTT is no longer used for monitoring Unfractionated Heparin Therapy. For monitoring Heparin Therapy, use the Heparin Assay.Performed By: #### 50864-5 #### TITUS PAYANMOTZSIMI Mercado ([id number]) [facility] ([facility]) [address] [place] [address] 77156Otlznchvhwlrqb aureus.methicillin resistant isolateon 49-99-6145QWCL isol Org specific cx Ql (Nose)Test: Staphylococcus aureus/MRSA colonization, Culture Specimen Source: Anterior Nares Specimen Type: Swab Specimen Date: 02/11/2024 150 Result Date: 02/13/2024825 Result Status: Final result Abnormal: No Resulting Lab: [facility] [address] [place] [address] CULTURE No Staphylococcus aureus isolatedNoalUBellevue HospitalComment on above:Performed By: #### [id number] #### TITUS Mercado ([id number]) [facility] ([facility]) [address] [place] [address] 17233Qdtxedfemf complete W Reflex Culture panel (U)on 02-11-2024 Appearance (U)ClearNormalClearFlower Hospital Comment on above:Performed By: #### 49855-6 #### TITUS Mercado ([id number]) [facility] ([facility]) [address] [place] [address] 47253Vgcdclsad (U) [Mass/Vol]NegativeNormalNEGATIVEFlower HospitalComment on above:Performed By: #### 30800-4 #### TITUS Mercado ([id number]) [facility] ([facility]) [address] [place] [address] 54569Ubyym (U)ColorlessNormalLight-Yellow, Yellow, Dark-Yellow Flower HospitalComment on above:Performed By: #### 30932-1 #### TITUS Mercado ([id number]) [facility] ([facility]) [address] [place] [address] 28731Lqyilhf Auto test strip (U) [Mass/Vol]NormalNormalNormal Flower HospitalComment on above:Performed By: #### 54114-9 #### TITUS Mercado ([id number]) [facility] ([facility]) [address] [place] [address] 20106Rrhjeme (U) [Mass/Vol]NegativeNormalNEGATIVEFlower HospitalComment on above:Performed By: #### 58321-1 #### TITUS Mercaod ([id number]) [facility] ([facility]) [address] [place] [address] 67831Aogobcbhi esterase Auto test strip Ql (U)NegativeNormal NEGATIVEUnCleveland Clinic Children's Hospital for RehabilitationComment on above:Performed By: #### 54783-0 #### TITUS Mercado ([id number]) [facility] ([facility]) [address] [place] [address] 26164Wblfpvu Auto test strip Ql (U)NegativeNormalNEGATIVE Flower HospitalComment on above:Performed By: #### 42514-9 #### TITUS Mercado ([id number]) [facility] ([facility]) [address] [place] [address] 02347lY (U)5.5 [pH]Normal5.0, 5.5, 6.0, 6.5, 7.0, 7.5, 8.0 Flower HospitalComment on above:Performed By: #### 16827-5 #### TITUS Mercado ([id number]) [facility] ([facility]) [address] [place] [address] 57611Ahmbdrt (U) [Mass/Vol]NegativeNormalNEGATIVE, 10 (TRACE), 20 (TRACE)Flower HospitalComment on above:Performed By: #### 06563-3 #### TITUS Mercado ([id number]) [facility] ([facility]) [address] [place] [address] 58012YHE (U) [#/Vol]NegativeNormalNEGATIVEUnCleveland Clinic Children's Hospital for RehabilitationComment on above:Performed By: #### 77342-8 #### TITUS Mercado ([id number]) [facility] ([facility]) [address] [place] [address] 44958Epcytltp gravity (U) [Rel density]1.718Qcrorv5.005-1.035 Flower HospitalComment on above:Performed By: #### 31945-2 #### TITUS Mercado ([id number]) [facility] ([facility]) [address] [place], [place] [address]Qdkggzmvxzdx (U) [Mass/Vol]NormalNormalNormalUniversity Mercy Health Allen HospitalComment on above:Performed By: #### 48709-0 #### TITUS Mercado ([id number]) [facility] ([facility]) [address] [place], [place] [address]KS BRAIN TUMOR PERFUSION PROTOCOL W AND WO IV CONTRASTon 64-86-8532AX BRAIN TUMOR PERFUSION PROTOCOL W AND WO IV CONTRASTInterpreted By: Nate Benavidez, STUDY: MR BRAIN TUMOR PERFUSION PROTOCOL W AND WO IV CONTRAST; 12/13/2023 8:49 am INDICATION: Signs/Symptoms:pontine lesion, imaging surveillance. COMPARISON: None. ACCESSION NUMBER(S): [id number] ORDERING CLINICIAN: SHIMON HEATON TECHNIQUE: Axial diffusion, [...] Nate Benavidez 12/13/2023 9:38 AM Dictation workstation: [id number] Toledo HospitalComment on above:Order Comment: FYI results cc'd to [facility] Brain for new diagnosis tumor WO and W contrast Tristin 78-52-6575Chdeg is again evidence of nonspecific nonenhancing ill-defined [...] Nate Benavidez 12/13/2023 9:38 AM Dictation workstation: [id number] By: Nate Benavidez, STUDY: MR BRAIN TUMOR PERFUSION PROTOCOL W AND WO IV CONTRAST; 12/13/2023 8:49 am INDICATION: Signs/Symptoms:pontine lesion, imaging surveillance. COMPARISON: None. ACCESSION NUMBER(S): [id number] ORDERING CLINICIAN: SHIMON HEATON TECHNIQUE: Axial diffusion, [...] lesion, imaging surveillance. COMPARISON: None. ACCESSION NUMBER(S): [id number] ORDERING CLINICIAN: SHIMON HEATON TECHNIQUE: Axial diffusion, [...] Nate Benavidez 12/13/2023 9:38 AM Dictation workstation: [id number] [facility] Work Phone: Radiology Study observation (narrative)[facility] Work Phone: Brain for new diagnosis tumor WO and W contrast IV Ordered By: Nate Benavidez on 38-67-3379JxybmthqjeCleveland Clinic Medina Hospital Work Phone: Basophils Auto (Bld) [#/Vol]on 39-52-3591Xlbdcfazk (Bld) [#/Vol]0.04 10*3/uL<0.11[facility] HospitalBasophils/100 WBC Auto (Bld)on 80-96-2966Fstygtusf/100 WBC (Bld)0.5 %[facility] HospitalBlood manual differential comment interpretation narrativeon 10-26-2023 Manual differential comment Curtis (Bld) [Interp]AutoOhiohealth Riverside Methodist HospitalCBC W Auto Differential panel (Bld)on 14-79-4520Wreylquda (Bld) [#/Vol] 0.04 10*3/uLNINFClehighland district hospital ClinicBasophils/100 WBC (Bld)0.5 %[facility] Differential cell count method Nom (Bld)AutoCleveland ClinicEosinophils (Bld) [#/Vol]0.13 10*3/uLNINFWoodruff ClinicEosinophils/100 WBC (Bld)1.5 %[facility] Charles HospitalErythrocyte distribution width (RBC) [Ratio]13.8 %11.5 - 15.0 %[facility] HospitalHematocrit (Bld) [Volume fraction]42.6 %39.0 - 51.0 %[facility] Hemoglobin (Bld) [Mass/Vol]14.4 g/dL13.0 - 17.0 g/dLMercy Health St. Charles HospitalImmature granulocytes (Bld) [#/Vol]0.03 10*3/uLNINFMercy Health St. Charles HospitalImmature granulocytes/100 WBC (Bld)0.3 %[facility] Charles HospitalLymphocytes (Bld) [#/Vol]2.18 10*3/uLMercy Health St. Charles HospitalLymphocytes/100 WBC (Bld)24.8 %[facility] Medical CenterH (RBC) [Entitic mass]32.0 pg26.0 - 34.0 pgCSt. John of God HospitalHC (RBC) [Mass/Vol]33.8 g/dL30.5 - 36.0 g/dLLakeHealth Beachwood Medical CenterV (RBC) [Entitic vol]94.7 fL80.0 - 100.0 fLCleveland ClinicMonocytes (Bld) [#/Vol]0.60 10*3/uLNINFMercy Health St. Charles Hospital Monocytes/100 WBC (Bld)6.8 %[facility] Charles HospitalNeutrophils (Bld) [#/Vol]5.80 10*3/uLMercy Health St. Charles HospitalNeutrophils/100 WBC (Bld)66.1 %[facility] HospitalNucleated RBC (Bld) [#/Vol]NINFCSt. Mary's Medical CenterNucleated RBC/100 WBC (Bld) [Ratio]0.0 % /[address] Charles HospitalPlatelet mean volume (Bld) [Entitic vol]10.2 fL9.0 - 12.7 fLCSt. Mary's Medical CenterPlatelets (Bld) [#/Vol]314 10*3/Wilson HealthRBC (Bld) [#/Vol]4.50 10*6/uL4.20 - 6.00 m/Wilson HealthWBC (Bld) [#/Vol]8.78 10*3/[facility] HospitalCT Chest W contrast Tristin 10-26-2023 IMPRESSION: [...] any questions regarding this interpretation, please call [phone]. If you are unable to reach us at the number above, please feel free to contact [facility] eRadiology at [phone].DIVISION OF RADIOLOGY* * *Final Report* * * DATE OF EXAM: Oct 26 2023 10:05AM [facility] [place] 0539 - CT CHEST W IVCON / [...] images: No additional findings. DIVISION OF RADIOLOGYProvider, [facility] [place] - 10/26/2023 * * *Final Report* * * DATE OF EXAM: Oct 26 2023 10:05AM [facility] [place] 0539 - CT CHEST W IVCON / [...] any questions regarding this interpretation, please call [phone]. If you are unable to reach us at the number above, please feel free to contact [facility] eRadiology at [phone]. [facility] Neck W contrast Tristin 81-44-1632XTYEMEEXAR: Primary: 1: Expected post-treatment changes in the neck without evidence of recurrent disease in the primary site. Neck: 1: No evidence of abnormal lymph nodes. [email or web address] Transcribe Date/Time: Oct 26 2023 10:15A Dictated by: LIMA LIZ MD This examination was interpreted and the report reviewed and electronically signed by: LIMA LIZ MD on Oct 26 2023 10:35AM EST Thank you for allowing us to participate in the care of your patient. Should there be any questions regarding this interpretation, please call [phone]. 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 Resected T1 N1 base [...] normal. Parotid and submandibular spaces are normal. Rfp Writer spaces appear normal. Infrahyoid Neck: Hypopharynx, larynx, [...] are clear of focal consolidation or mass. 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 Resected T1 N1 base [...] normal. Parotid and submandibular spaces are normal. Rfp Writer spaces appear normal. Infrahyoid Neck: Hypopharynx, larynx, [...] are clear of focal consolidation or mass. [employer] Scout (topogram) images: Noncontributory IMPRESSION IMPRESSION: Primary: 1: Expected post-treatment changes in the neck without evidence of recurrent disease in the primary site. Neck: 1: No evidence of abnormal lymph nodes. [email or web address] [email or web address] Transcribe Date/Time: Oct 26 2023 10:15A Dictated by: LIMA LIZ MD This examination was interpreted and the report reviewed and electronically signed by: (more content not included)...[facility] ClinicCT Neck W contrast IVOrdered By: [facility] Provider on 26-91-0350Fxgxzwqwg ClinicComprehensive metabolic 2000 panel Ordered By: Pauly Chan on 94-82-2743Pbhocnu [Mass/Vol]4.3 g/dL3.9 - 4.9 g/dL [facility] ClinicALP [Catalytic activity/Vol]75 U/L38 - 113 U/LCleveland Clinic ALT [Catalytic activity/Vol]10 U/L10 - 54 U/LCleveland ClinicAnion gap [Moles/Vol]8 mmol/LLow9 - 18 mmol/LCleveland ClinicAST [Catalytic activity/Vol]9 U/LLow14 - 40 U/LCleveland ClinicBilirubin [Mass/Vol]0.5 mg/dL0.2 - 1.3 mg/dL [facility] HospitalCalcium [Mass/Vol]9.9 mg/dL8.5 - 10.2 mg/dLMercy Health St. Charles Hospital Chloride [Moles/Vol]106 mmol/LHigh97 - 105 mmol/LCleveland ClinicCO2 [Moles/Vol] 27 mmol/L22 - 30 mmol/LCleveland ClinicCreatinine [Mass/Vol]1.01 mg/dL0.73 - 1.22 mg/dLMercy Health St. Charles HospitalGFR/1.73 sq M.predicted among non-blacks MDRD (S/P/Bld) [Vol rate/Area]85 mL/min/{1.73_m2}- PINUK HealthcareComment on above:Estimated Glomerular Filtration Rate (eGFR) is [...] [Mass/Vol] 89 mg/dL74 - 99 mg/dLMercy Health St. Charles HospitalComment on above:The [place] Diabetes Association (ADA) provides guidance for cutoff [...] Standards of Medical Care in Diabetes 2016, [place] [employer] Association. Diabetes Care. 2016.39(Suppl 1). Interpretation and review of laboratory resultsAbnormalCSt. Mary's Medical CenterPotassium [Moles/Vol]4.0 mmol/L3.7 - 5.1 mmol/LCleveland ClinicProtein [Mass/Vol]6.4 g/dL 6.3 - 8.0 g/dLWoodruff ClinicSodium [Moles/Vol]141 mmol/L136 - 144 mmol/L [facility] Charles HospitalUrea nitrogen [Mass/Vol]16 mg/dL9 - 24 mg/dLAccess Hospital Dayton ClinicEosinophils/100 WBC Auto (Bld)on 17-76-8754Vlyyjzojucs/100 WBC (Bld)1.5 %[facility] HospitalErythrocyte distribution width Auto (RBC) [Ratio]on 73-90-1784Iyqfoenlzdh distribution width (RBC) [Ratio]13.8 % 11.5-15.0[facility] HospitalHematocrit Auto (Bld) [Volume fraction]on 23-93-0127Fvudxtvypo (Bld) [Volume fraction]42.6 %39.0-51.0[facility] HospitalHemoglobin [Mass/volume] in Bloodon 34-10-4421Hyvzlzhkup (Bld) [Mass/Vol]14.4 g/dL13.0-17.0[facility] HospitalLaboratory - Chemistry and Chemistry - challengeon 84-91-4317Dxqmuzu [Mass/Vol]4.3 g/dL 3.9-4.9[facility] HospitalALP [Catalytic activity/Vol]75 U/L38-113 [facility] HospitalALT [Catalytic activity/Vol]10 U/L10-54 [facility] HospitalAST [Catalytic activity/Vol]9 U/U09-76AkrmszpgyOhiohealth Riverside Methodist HospitalBilirubin [Mass/Vol]0.5 mg/dL0.2-1.3FTriHealth Bethesda Butler HospitalCalcium [Mass/Vol]9.9 mg/dL8.5-10.2FTriHealth Bethesda Butler HospitalChloride [Moles/Vol]106 mmol/Q11-371YaconeghrOhiohealth Riverside Methodist HospitalCO2 [Moles/Vol]27 mmol/P44-21CicmodfjbOhiohealth Riverside Methodist HospitalCreatinine [Mass/Vol] 1.01 mg/dL0.73-1.22[facility] HospitalGlucose [Mass/Vol]89 mg/dL 74-99[facility] HospitalComment on above:The [place] Diabetes Association (ADA) provides guidance for cutoff [...] diabetes.Reference: Standardsof Medical Care in Diabetes 2016, [place] Diabetes Association. Diabetes Care. 2016.39(Suppl 1). Potassium [Moles/Vol]4.0 mmol/L3.7-5.1FParkview Healthodium [Moles/Vol]141 mmol/B694-952StzgthpdqOhiohealth Riverside Methodist HospitalUrea nitrogen [Mass/Vol]16 mg/dL9-24[facility] HospitalLaboratory - Hematology and Cell countson 01-19-7453Vdlkfoclfam (Bld) [#/Vol]0.13 10*3/uL<0.46[facility] HospitalImmature granulocytes (Bld) [#/Vol]0.03 10*3/uL<0.10 [facility] HospitalImgature granulocytes/100 WBC (Bld)0.3 % [facility] HospitalLeukocytes [#/volume] corrected for nucleated erythrocytes in Blood by Automated counon 55-99-6382BOZ corrected for nucl RBC Auto (Bld) [#/Vol]8.78 k/uL3.70-11.00[facility] Lymphocytes Auto (Bld) [#/Vol]on 91-72-9370Cscrogrizol (Bld) [#/Vol]2.18 10*3/uL 1.00-4.00[facility] HospitalLymphocytes/100 WBC Auto (Bld)on 40-48-5397Whjuqccfojw/100 WBC (Bld)24.8 %[facility] HospitalMCH Auto (RBC) [Entitic mass]on 31-62-9002DTV (RBC) [Entitic mass]32.0 pg26.0-34.0 [facility] HospitalMCHC Auto (RBC) [Mass/Vol]on 12-29-5748TGWS (RBC) [Mass/Vol]33.8 g/dL30.5-36.0[facility] HospitalMCV Auto (RBC) [Entitic vol]on 37-95-3897AWG (RBC) [Entitic vol]94.7 fL80.0-100.0 [facility] HospitalMonocytes Auto (Bld) [#/Vol]on 10-26-2023 Monocytes (Bld) [#/Vol]0.60 10*3/uL<0.87[facility] Monocytes/100 WBC Auto (Bld)on 66-08-9180Enlcdjtro/100 WBC (Bld)6.8 %[facility] HospitalNeutrophils Auto (Bld) [#/Vol]on 47-92-1038Xvnaosctduz (Bld) [#/Vol]5.80 10*3/uL1.45-7.50[facility] Neutrophils/100 WBC Auto (Bld)on 95-50-9231Mpxdkhjvkxm/100 WBC (Bld)66.1 % [facility] HospitalNo Panel Informationon 20-63-9116Nguoehvtg Study observation (narrative)[facility] HospitalEstimated GFR (CKD-EPI)85 mL/min/1.73m???>=60[facility] HospitalComment on above:Estimated Glomerular Filtration Rate (eGFR) [...] reflect actual GFR.Nucleated RBC Auto (Bld) [#/Vol]on 24-32-2522Sgyzxawiz RBC (Bld) [#/Vol]10*3/uL<0.01[facility] HospitalNucleated erythrocytes [Presence] in Blood by Automated counton 05-10-2024 Nucleated RBC Auto Ql (Bld)0.0 /100{WBC}[facility] Platelet mean volume Auto (Bld) [Entitic vol]on 81-26-5563Wgrsbqlk mean volume (Bld) [Entitic vol]10.2 fL9.0-12.7FTriHealth Bethesda Butler HospitalPlatelets Auto (Bld) [#/Vol]on 14-37-9769Oxtqizbtp (Bld) [#/Vol]314 10*3/eM206-843 [facility] HospitalProtein [Mass/volume] in Serum or Plasmaon 32-91-5461Ufdkpga [Mass/Vol]6.4 g/dL6.3-8.0[facility] HospitalRBC Auto (Bld) [#/Vol]on 45-44-2284QHU (Bld) [#/Vol]4.50 10*6/uL4.20-6.00[facility] Health Centererum or plasma anion gap determinationon 16-79-3889Xbsqc gap [Moles/Vol]8 mmol/L9-18FTriHealth Bethesda Butler HospitalAlanine aminotransferase [Enzymatic activity/volume] in Serum or PlasmaOrdered By: Griselda Krause on 82-96-8227VUJ [Catalytic activity/Vol]8 U/L7-52[facility] HospitalAlbumin [Mass/volume] in Serum or Plasma by Bromocresol green (BCG) dye binding methoOrdered By: Griselda Krause on 83-40-9204Byywumx BCG dye [Mass/Vol]3.9 g/dL3.5-5.7FTriHealth Bethesda Butler HospitalAlkaline phosphatase [Enzymatic activity/volume] in Serum or PlasmaOrdered By: Griselda Krause on 08-90-1710HIN [Catalytic activity/Vol]59 U/K20-243FhvvdkuzeOhiohealth Riverside Methodist HospitalAspartate aminotransferase [Enzymatic activity/volume] in Serum or Plasma Ordered By: Griselda Krause on 24-86-3705YSV [Catalytic activity/Vol]7 U/L13-39 [facility] HospitalBasophils Auto (Bld) [#/Vol]Ordered By: Griselda Krause on 15-19-4452Ayuhbwpja (Bld) [#/Vol]0.1 10*3/uL0.0-0.2FTriHealth Bethesda Butler HospitalBasophils/100 WBC Auto (Bld)Ordered By: Griselda Krause on 10-09-2023 Basophils/100 WBC (Bld)0.9 %.[facility] HospitalBilirubin.total [Mass/volume] in Serum or PlasmaOrdered By: Griselda Krause on 91-23-8635Jvsqvoidu [Mass/Vol]0.5 mg/dL0.3-1.0[facility] HospitalCOVID-19 Detected/Not DetectedOrdered By: Griselda Krause on 85-22-1658KLXY-CoV-2 (COVID-19) RNA JER+non- probe Ql (Nph)Not detectedNot DetecteFTriHealth Bethesda Butler HospitalComment on above:This is a duplicate RP2.1 COVID (PCR) result to be used for statistical tracking purpose only.Calcium [Mass/volume] in Serum or PlasmaOrdered By: Griselda Krause on 47-23-7963Gwszgfr [Mass/Vol]9.5 mg/dL8.6-10.3FTriHealth Bethesda Butler HospitalCarbon dioxide, total [Moles/volume] in Serum or PlasmaOrdered By: Griselda Krause on [id number] [Moles/Vol]30.0 mmol/L21.0-31.0[facility] HospitalChloride [Moles/volume] in Serum or PlasmaOrdered By: Griselda Krause on [id number] [Moles/Vol]103 mmol/K48-607BcbadnfrcOhiohealth Riverside [facility] Hospital Creatinine [Mass/volume] in Serum or PlasmaOrdered By: Griselda Krause on 10-09-2023 Creatinine [Mass/Vol]0.92 mg/dL0.70-1.30[facility] Eosinophils Auto (Bld) [#/Vol]Ordered By: Griselda Krause on 30-04-4898Vvddohofown (Bld) [#/Vol]0.1 10*3/uL0.0-0.45[facility] [facility] HospitalEosinophils/100 WBC Auto (Bld)Ordered By: Griselda Krause on 56-87-8835Enyavlqrbxk/100 WBC (Bld)1.0 %.[facility] HospitalErythrocyte distribution width Auto (RBC) [Ratio]Ordered By: Griselda Krause on 60-25-5870Xukjycwhngz distribution width (RBC) [Ratio]14.3 %12.0-14.8[facility] HospitalGlobulin Calc (S) [Mass/Vol]Ordered By: Griselda Krause on 63-96-1583Wxkwzltk (S) [Mass/Vol]2.0 g/dL [facility] HospitalGlucose [Mass/volume] in Serum or PlasmaOrdered By: Griselda Krause on 54-45-3931Atgfwxn [Mass/Vol]84 mg/jU10-090GfokdcmctOhiohealth Riverside Methodist HospitalComment on above:ADA recommended reference rangeRandom Glucose Reference Range is dependent on time and content of last meal. Glucose of more than 200 mg/dL in a nonstressed, ambulatory subject supports the diagnosisof Diabetes Mellitus.Hematocrit Auto (Bld) [Volume fraction]Ordered By: Griselda Krause on 94-87-4556Gfnjvgknmt (Bld) [Volume fraction]41.9 %38.8-50.0[facility] HospitalHemoglobin [Mass/volume] in BloodOrdered By: Griselda Krause on 98-92-3694Tofxfmuccp (Bld) [Mass/Vol]14.4 g/dL13.0-17.0[facility] HospitalLeukocytes [#/volume] corrected for nucleated erythrocytes in Blood by Automated counOrdered By: Griselda Krause on 43-27-9019GME corrected for nucl RBC Auto (Bld) [#/Vol]8.1 10*3/uL4.1-10.5FTriHealth [facility] Lymphocytes Auto (Bld) [#/Vol]Ordered By: Griselda Krause on 49-46-2088Paadsiupnoc (Bld) [#/Vol]2.7 10*3/uL1.00-4.8[facility] HospitalLymphocytes/100 WBC Auto (Bld)Ordered By: Griselda Krause on 92-96-9935Lasglotvqoo/100 WBC (Bld)33.6 %.[facility] HospitalMCH Auto (RBC) [Entitic mass]Ordered By: Griselda Krause on 14-10-9996SIG (RBC) [Entitic mass]32.7 pg27.5-35.2FTriHealth Bethes[facility] Butler HospitalMCHC Auto (RBC) [Mass/Vol]Ordered By: Griselda Krause on 73-89-1266SEHL (RBC) [Mass/Vol]34.4 g/dL32.5-35.6FTriHealth Bethes[facility] Butler HospitalMCV Auto (RBC) [Entitic vol]Ordered By: Griselda Krause on 28-55-3128XFB (RBC) [Entitic vol]94.8 fL83.5-101[facility] HospitalMonocytes Auto (Bld) [#/Vol]Ordered By: Griselda Krause on 05-32-7551Hlkqdolwo (Bld) [#/Vol]0.6 10*3/uL0.0-0.8[facility] HospitalMonocytes/100 WBC Auto (Bld) Ordered By: Griselda Krause on 51-89-8699Dohgumeod/100 WBC (Bld)7.5 %.[facility] HospitalNeutrophils Auto (Bld) [#/Vol]Ordered By: Griselda Krause on 28-13-2608Sdswrqaizyi (Bld) [#/Vol]4.6 10*3/uL1.8-7.7FTriHealth Bethes[facility] Butler HospitalNeutrophils/100 WBC Auto (Bld)Ordered By: Griselda Krause on 10-09-2023 Neutrophils/100 WBC (Bld)57.0 %.[facility] HospitalNo Panel InformationOrdered By: Griselda Krause on 37-97-4126Wlqhntdrj GFR (CKD-EPI)> 60.0 mL/MinOhiohealth Riverside Methodist HospitalPharmacy Creatinine Clearance (ChemN/A [facility] HospitalNucleated erythrocytes [Presence] in Blood by Automated countOrdered By: Griselda Krause on 81-13-9555Bnrcteruf RBC Auto Ql (Bld) 0.2 /100{WBC}0-0.5FTriHealth Bethesda Butler HospitalPlatelet mean volume Auto (Bld) [Entitic vol]Ordered By: Griselda Krause on 88-74-7241Teogress mean volume (Bld) [Entitic vol]8.3 fL6.6-10.1Fire[facility] Medical CenterPlatelets Auto (Bld) [#/Vol]Ordered By: Griselda Krause on 54-24-8203Lehskddra (Bld) [#/Vol]349 10*3/gZ622-304DwephopptOhiohealth Riverside Methodist HospitalPotassium [Moles/volume] in Serum or PlasmaOrdered By: Griselda Krause on 65-38-8131Fgpdgaktv [Moles/Vol]4.5 mmol/L 3.5-5.1FTriHealth Bethes[facility] Butler HospitalProtein [Mass/volume] in Serum or Plasma Ordered By: Griselda Krause on 13-75-0823Sixbyhv [Mass/Vol]5.9 g/dL6.4-8.9[facility] HospitalRBC Auto (Bld) [#/Vol]Ordered By: Griselda Krause on 03-69-6384HEI (Bld) [#/Vol]4.42 10*6/uL3.90-5.60[facility] HospitalRespiratory pathogens DNA and RNA panel - Nasopharynx by JER with non- probe detectionOrdered By: Griselda Kraues on 97-17-3958Zozmxseovxw pathogens DNA and RNA panel JER+non-probe (Nph)[facility] Centererum or plasma albumin/globulin mass ratioOrdered By: Griselda Krause on 18-71-5180Ibptvve/Globulin [Mass ratio]2.0 {ratio}[facility] Centererum or plasma anion gap determinationOrdered By: Griselda Krause on 20-29-0470Okvig gap [Moles/Vol]9.5 mmol/L6.0-15.0[facility] Centerodium [Moles/volume] in Serum or PlasmaOrdered By: Griselda Krause on 18-90-6401Pzmbwd [Moles/Vol]138 mmol/S689-748 [facility] HospitalUrea nitrogen [Mass/volume] in Serum or Plasma Ordered By: Griselda Krause on 11-21-5528Qazj nitrogen [Mass/Vol]14 mg/dL7-25 [facility] HospitalWBC Auto (Bld) [#/Vol]Ordered By: Griselda Krause on 66-23-4073DLH (Bld) [#/Vol]8.1 10*3/uL4.1-10.5FTriHealth [facility] Hospital Study Interpretation of outside studyon 87-18-8263Wbcicqp images for comparison or treatment purposes, not interpreted by Radiologists.IMAGINGMRI BRAIN W WO CONTRASTon 32-36-9010FYD BRAIN W WO CONTRAST EXAMINATION: MRI OF [...] Signed by: Vitor Hickman MD 08/01/23 Final resultNormProwers Medical CenterMRI CERVICAL SPINE WO CONTRASTon 81-53-4320RSY CERVICAL SPINE WO CONTRASTEXAMINATION: MRI OF THE [...] Signed by: Vitor Hickman MD 08/01/23 Final resultNormalKindred Hospital - Denver SouthCOVID + FLU Quick Testingon 27-14-6538EGMW-CoV-2 (COVID-19) RNA JER+probe Ql (Unsp spec)NegativeGC-[employer] Other COVID + FLU Quick TestingNegativeBreakthrough Behavioral INWEBT[employer] Limited Other Quick Strepon 07-02-2023S. pyogenes Org specific cx Ql (Throat)NegativeGC-[employer] Other quick Customer[employer]io Other RSVon 74-93-5642GNY Ag IA Ql (Unsp spec)NegativeGC-[employer] Other Creatinine [Mass/volume] in Serum or PlasmaOrdered By: Ruddy Harvey on 43-06-6610Knsauwkxhb [Mass/Vol]0.91 mg/dL0.70-1.30 [facility] HospitalNo Panel InformationOrdered By: Ruddy Harvey on 46-14-8726Cwnoibqox GFR (CKD-EPI)> 60.0 mL/MinOhiohealth Riverside Methodist HospitalPharmacy Creatinine Clearance (Chem83.52[facility] HospitalUrea nitrogen [Mass/volume] in Serum or PlasmaOrdered By: Ruddy Harvey on 24-82-2139Mxbo nitrogen [Mass/Vol]15 mg/dL7-[facility] HospitalCreatinine (Bld) [Mass/Vol]Ordered By: Nikole Mota on 15-95-3141Mahkfhdxdk [Mass/Vol]0.9 mg/dL0.6-1.3FTriHealth [facility] Comment on above:ER/ESD physician is notified/shown all ISTAT results.Critical values may be confirmed by laboratorytesting ifdeemed necessary by ER attending doctor.No Panel InformationOrdered By: Nikole Mota on 40-39-1392Owfoywi Estimated GFR (eGFR)> 60.0[facility] HospitalAlanine aminotransferase [Enzymatic activity/volume] in Serum or PlasmaOrdered By: Griselda Krause on 21-45-3751OIR [Catalytic activity/Vol]10 U/L7-52[facility] HospitalAlbumin [Mass/volume] in Serum or Plasma by Bromocresol green (BCG) dye binding methoOrdered By: Griselda Krause on 23-09-6251Xfiyvbb BCG dye [Mass/Vol]4.2 g/dL3.5-5.7FTriHealth Bethesda Butler HospitalAlkaline phosphatase [Enzymatic activity/volume] in Serum or PlasmaOrdered By: Griselda Krause on 75-96-4566PAI [Catalytic activity/Vol]61 U/A27-642EiezmweknOhiohealth Riverside Methodist HospitalAspartate aminotransferase [Enzymatic activity/volume] in Serum or Plasma Ordered By: Griselda Krause on 64-65-9254GQC [Catalytic activity/Vol]8 U/L13-39 [facility] HospitalBasophils Auto (Bld) [#/Vol]Ordered By: Griselda Krause on 96-96-9221Aoxfkjhli (Bld) [#/Vol]0.1 10*3/uL0.0-0.2FTriHealth Bethes[facility] Butler HospitalBasophils/100 WBC Auto (Bld)Ordered By: Griselda Krause on 03-30-2023 Basophils/100 WBC (Bld)0.8 %.[facility] HospitalBilirubin.total [Mass/volume] in Serum or PlasmaOrdered By: Griselda Krause on 11-55-9077Fzlivftnr [Mass/Vol]0.9 mg/dL0.3-1.0[facility] HospitalCalcium [Mass/volume] in Serum or PlasmaOrdered By: Griselda Krause on 44-37-6629Dbqbpso [Mass/Vol]9.1 mg/dL8.6-10.3FTriHealth Bethes[facility] Butler HospitalCarbon dioxide, total [Moles/volume] in Serum or PlasmaOrdered By: Griselda Krause on 68-05-7466CS9 [Moles/Vol]27.0 mmol/L21.0-31.0[facility] HospitalChloride [Moles/volume] in Serum or PlasmaOrdered By: Grsielda Krause on 51-15-9204Tzbieqmb [Moles/Vol]103 mmol/J67-855HnyvmxcxhOhiohealth Riverside Methodist HospitalCholesterol [Mass/volume] in Serum or PlasmaOrdered By: Griselda Krause on 48-13-0262Ttqnfirryfb [Mass/Vol]224 mg/gS980-225WwsmdewioOhiohealth Riverside Methodist HospitalComment on above:Chol less than 200 mg/dl low riskChol 201-239 mg/dl borderline riskChol 240 mg/dl and greater high riskCholesterol in LDL Calc [Mass/Vol]Ordered By: Griselda Krause on 51-75-1688Hlcyonovzbw in LDL [Mass/Vol]148 mg/dL0-100[facility] HospitalComment on above:LDL ATP III CLASSIFICATIONLDL less than 100 mg/dL OptimalLDL 100-129 mg/dL Near or above pwouuwfGGZ964-441 mg/dL Borderline highLDL 160-189 mg/dL HighLDL greater than 189 mg/dL Very highCholesterol in VLDL Calc [Mass/Vol]Ordered By: Griselda Krause on 20-70-3750Buhigdskdpu in VLDL [Mass/Vol]31 mg/dLOhiohealth Riverside Methodist HospitalCreatinine [Mass/volume] in Serum or PlasmaOrdered By: Griselda Krause on 25-85-7940Elyzxyeqel [Mass/Vol]0.82 mg/dL0.70-1.30[facility] HospitalEosinophils Auto (Bld) [#/Vol] Ordered By: Griselda Krause on 73-94-7760Xiztasgdraw (Bld) [#/Vol]0.1 10*3/uL0.0-0.45 [facility] HospitalEosinophils/100 WBC Auto (Bld)Ordered By: Griselda Krause on 30-50-5304Mtaxwrxhowc/100 WBC (Bld)0.6 %.[facility] HospitalErythrocyte distribution width Auto (RBC) [Ratio]Ordered By: Griselda Krause on 92-55-4338Gycpcvxmala distribution width (RBC) [Ratio]14.1 %12.0-14.8[facility] HospitalGlobulin Calc (S) [Mass/Vol]Ordered By: Griselda Krause on 16-95-8808Evgkiwjm (S) [Mass/Vol]1.9 g/dLOhiohealth [facility] Glucose [Mass/volume] in Serum or PlasmaOrdered By: Griselda Krause on 03-30-2023 Glucose [Mass/Vol]83 mg/gN30-611SetnrqndmOhiohealth Riverside Methodist HospitalComment on above:ADA recommended reference rangeRandom Glucose Reference Range is dependent on time and content of last meal. Glucose of more than 200 mg/dL in a nonstressed, ambulatory subject supports the diagnosisof Diabetes Mellitus. Hematocrit Auto (Bld) [Volume fraction]Ordered By: Griselda Krause on 03-30-2023 Hematocrit (Bld) [Volume fraction]41.4 %38.8-50.0[facility] HospitalHemoglobin [Mass/volume] in BloodOrdered By: Griselda Krause on 03-30-2023 Hemoglobin (Bld) [Mass/Vol]14.4 g/dL13.0-17.0[facility] Leukocytes [#/volume] corrected for nucleated erythrocytes in Blood by Automated counOrdered By: Griselda Krause on 17-18-0605IRU corrected for nucl RBC Auto (Bld) [#/Vol]10.0 10*3/uL4.1-10.5FTriHealth Bethesda Butler HospitalLymphocytes Auto (Bld) [#/Vol]Ordered By: Griselda Krause on 29-08-2828Uxqandcsmwk (Bld) [#/Vol]1.7 10*3/uL1.00-4.8[facility] HospitalLymphocytes/100 WBC Auto (Bld) Ordered By: Griselda Krause on 17-47-6629Egbwdsbjdem/100 WBC (Bld)16.8 %.[facility] Auto (RBC) [Entitic mass]Ordered By: Griselda Krause on 55-12-9277DZC (RBC) [Entitic mass]33.9 pg27.5-35.2[facility] Medical CenterMCHC Auto (RBC) [Mass/Vol]Ordered By: Griselda Krause on 85-06-6244CXNS (RBC) [Mass/Vol]34.9 g/dL32.5-35.6FTriHealth Bethesda Butler HospitalMCV Auto (RBC) [Entitic vol]Ordered By: Griselda Krause on 96-08-8350QZG (RBC) [Entitic vol]97.1 fL 83.5-101[facility] HospitalMonocytes Auto (Bld) [#/Vol]Ordered By: Griselda Krause on 66-14-7492Brzjtlqxh (Bld) [#/Vol]0.8 10*3/uL0.0-0.8[facility] HospitalMonocytes/100 WBC Auto (Bld)Ordered By: Griselda Krause on 67-51-9722Jwuphnefi/100 WBC (Bld)8.0 %.[facility] Neutrophils Auto (Bld) [#/Vol]Ordered By: Griselda Krause on 68-73-2865Zsvltefnbuc (Bld) [#/Vol]7.3 10*3/uL1.8-7.7FTriHealth Bethesda Butler HospitalNeutrophils/100 WBC Auto (Bld)Ordered By: Griselda Krause on 65-27-4064Dawfofarjza/100 WBC (Bld)73.8 %.[facility] HospitalNo Panel InformationOrdered By: Griselda Krause on 38-70-3372Aqxbseqph GFR (CKD-EPI)> 60.0 mL/MinOhiohealth [facility]ide [facility] Hospital Pharmacy Creatinine Clearance (ChemN/[facility] Medical CenterNucleated erythrocytes [Presence] in Blood by Automated countOrdered By: Griselda Krause on 15-56-0212Tjrrhuxzm RBC Auto Ql (Bld)0.1 /100{WBC}0-0.5FTriHealth Bethesda Butler HospitalPlatelet mean volume Auto (Bld) [Entitic vol]Ordered By: Griselda Krause on 88-39-0373Gphiykxd mean volume (Bld) [Entitic vol]9.2 fL6.6-10.1 [facility] HospitalPlatelets Auto (Bld) [#/Vol]Ordered By: Griselda Krause on 22-26-7173Kpcutywpm (Bld) [#/Vol]221 10*3/zA880-923AvsgviglmOhiohealth Riverside Methodist HospitalPotassium [Moles/volume] in Serum or PlasmaOrdered By: Griselda Krause on 02-53-4194Jntemvnat [Moles/Vol]4.1 mmol/L3.5-5.1FTriHealth Bethesda Butler HospitalProtein [Mass/volume] in Serum or PlasmaOrdered By: Griselda Krause on 54-79-4603Ewjzydh [Mass/Vol]6.1 g/dL6.4-8.9[facility] HospitalRBC Auto (d) [#/Vol]Ordered By: Griselda Krause on 42-18-3124ZXA (d) [#/Vol]4.26 10*6/uL3.90-5.60[facility] Centererum or plasma albumin/globulin mass ratioOrdered By: Griselda Krause on 95-84-9141Ogigtqo/Globulin [Mass ratio]2.2 {ratio}[facility] Centererum or plasma anion gap determinationOrdered By: Griselda Krause on 13-46-8089Cphao gap [Moles/Vol]12.1 mmol/L6.0-15.0[facility] Centererum or plasma high density lipoprotein (HDL) cholesterol measurementOrdered By: Griselda Krause on 03-30-2023 Cholesterol in HDL [Mass/Vol]44 mg/cX94-34MhfytooapOhiohealth [facility] Hospital Comment on above:HDL CHOL ATP-III CLASSIFICATION Cardiovascular RiskHDL > or equal to 60 mg/dL LOWHDL < 40 mg/dL HIGHSerum or plasma total cholesterol/high density lipoprotein (HDL) cholesterol mass ratOrdered By: Griselda Krause on 40-52-7979Wpsizbvezlg.total/Cholesterol in HDL [Mass ratio]5.1 {ratio}<5.0 [facility] Centerodium [Moles/volume] in Serum or PlasmaOrdered By: Griselda Krause on 54-14-6765Rhblyp [Moles/Vol]138 mmol/P990-491TxsibmwxiOhiohealth Riverside Methodist HospitalThyrotropin [Units/volume] in Serum or PlasmaOrdered By: Griselda Krause on 46-27-4047SRN Qn0.93 m[IU]/L0.45-5.33[facility] HospitalTriglyceride [Mass/volume] in Serum or PlasmaOrdered By: Griselda Krause on 42-96-8768Gnudoskaemyp [Mass/Vol]159 mg/dL0-149[facility] Comment on above:TRIG ATP III CLASSIFICATIONTRIG less than 150 mg/dL NormalTRIG 150-199 mg/dL Borderline highTRIG 200-500 mg/dL High TRIG greater than 500 mg/dL Very highStandard traceable to the Center for Disease Conrtrol and Prevention (CDC) test method.Urea nitrogen [Mass/volume] in Serum or PlasmaOrdered By: Griselda Krause on 73-40-6815Fuet nitrogen [Mass/Vol]10 mg/dL7-25[facility] HospitalWBC Auto (Bld) [#/Vol]Ordered By: Griselda Krause on 09-53-2877UTQ (Bld) [#/Vol]10.0 10*3/uL4.1-10.5FTriHealth Bethesda Butler HospitalCOVID-19 YENNY Ordered By: Daniel Gaytan on 73-73-7062MKYN-CoV+SARS-CoV-2 (COVID-19) Ag IA.rapid Ql (Resp)NegativeNegativeOhiohealth Riverside Methodist HospitalComment on above:This is a duplicate Yenny SARS Antigen (JAMILA) result to be used for statistical tracking purpose only.No Panel InformationOrdered By: Daniel Gaytan on 40-29-9078XYSH Antigen (LFIA)[facility] CenterARS Antigen (LFIA)[facility] HospitalNo Panel Informationon 13-32-2591BY Pain Management Case (Reference Range: not available) *FINAL Date of Service: 12/28/2022 08:49 Adm #: [id number] Reading Dr:RICARDO CAPPS Signoff Dr: RICARDO CAPPS PROCEDURE: PAIN MANAGEMENT CASE - BXR 0999 REASON FOR EXAM: SPONDYLOSIS W/O MYELOPATHY OR RADICULOPATHY, CERVICAL REGION RESULT: Patient Name: SHANTEL MELENDEZ STUDY: PAIN MANAGEMENT CASE INDICATION: SPONDYLOSIS W/O MYELOPATHY OR RADICULOPATHY, CERVICAL REGION COMPARISON: None. ACCESSION NUMBER(S): [id number] ORDERING CLINICIAN: LIMA JOSEPH TECHNIQUE: See below: FINDINGS: Fluoroscopy was provided during therapeutic puncture in the region of the cervical spine for pain management. Total fluoroscopy time: 14.56mgy, images: 4. IMPRESSION: Fluoroscopy for pain management. Dictation workstation: [id number] Original Interpreting Physician: RICARDO CAPPS M.D. Original Transcribed by/Date: MMODAL Dec 28 2022 6:14A Original Electronically Signed by/Date: RICARDO CAPPS M.D. Dec 28 2022 9:04A Addendum Interpreting Physician: Addendum Transcribed by/Date: NO ADDENDUM Addendum Electronically Signed by/Date: [facility] EnterprPadletuick Strepon 12-05-2022S. pyogenes Org specific cx Ql (Throat) NegativeFits.me Other Quick StrepFits.me Other CT Chest W contrast Tristin 00-74-1890ZVPUMNIUVK: Stable CT of the chest. Unchanged appearance [...] any questions regarding this interpretation, please call [phone]. If you are unable to reach us at the number above, please feel free to contact [facility] eRadiology at [phone].DIVISION OF RADIOLOGY* * *Final Report* * * DATE OF EXAM: Oct 27 2022 11:44AM [facility] [place] 0539 - CT CHEST W IVCON / [...] No abnormality in the imaged upper abdomen. [employer] Scout (topogram) images: No additional findings. DIVISION OF RADIOLOGYProvider, [facility] [place] - 10/30/2022 * * *Final Report* * * DATE OF EXAM: Oct 27 2022 11:44AM [facility] [place] 0539 - CT CHEST W IVCON / [...] No abnormality in the imaged upper abdomen. [employer] Scout (topogram) images: No additional findings. IMPRESSION IMPRESSION: [...] any questions regarding this interpretation, please call [phone]. If you are unable to reach us at the number above, please feel free to contact [facility] eRadiology at [phone]. [facility] W Auto Differential panel (Bld)on 10-27-2022 Basophils (Bld) [#/Vol]0.03 10*3/uLNISycamore Medical Center ClinicBasophils/100 WBC (Bld) 0.3 %[facility] HospitalDifferential cell count method Nom (Bld)AutoCleveland ClinicEosinophils (Bld) [#/Vol]0.06 10*3/uLNINFMercy Health St. Charles HospitalEosinophils/100 WBC (Bld)0.7 %[facility] HospitalErythrocyte distribution width (RBC) [Ratio]14.0 % 11.5 - 15.0 %[facility] HospitalHematocrit (Bld) [Volume fraction]43.5 %39.0 - 51.0 %[facility] HospitalHemoglobin (Bld) [Mass/Vol]14.5 g/dL13.0 - 17.0 g/dLMercy Health St. Charles HospitalImmature granulocytes (Bld) [#/Vol]0.03 10*3/uLNINFMercy Health St. Charles Hospital Immature granulocytes/100 WBC (Bld)0.3 %[facility] HospitalLymphocytes (Bld) [#/Vol]2.00 10*3/uLMercy Health St. Charles HospitalLymphocytes/100 WBC (Bld)21.9 %[facility] CenterH (RBC) [Entitic mass]31.3 pg26.0 - 34.0 pgCSt. John of God HospitalHC (RBC) [Mass/Vol]33.3 g/dL30.5 - 36.0 g/dLLakeHealth Beachwood Medical CenterV (RBC) [Entitic vol]93.8 fL80.0 - 100.0 fLClevelnovant health rowan medical center ClinicMonocytes (Bld) [#/Vol]0.53 10*3/uLNINF [facility] HospitalMonocytes/100 WBC (Bld)5.8 %[facility] HospitalNeutrophils (Bld) [#/Vol]6.47 10*3/uLMercy Health St. Charles HospitalNeutrophils/100 WBC (Bld)71.0 %[facility] HospitalNucleated RBC (Bld) [#/Vol]NINFClevelOhioHealth Van Wert HospitalNucleated RBC/100 WBC (Bld) [Ratio]0.0 %/[address] Charles HospitalPlatelet mean volume (Bld) [Entitic vol] 10.8 fL9.0 - 12.7 fLCohiohealth southeastern medical center ClinicPlatelets (Bld) [#/Vol]253 10*3/[facility] HealthRBC (Bld) [#/Vol]4.64 10*6/uL4.20 - 6.00 m/Wilson HealthWBC (Bld) [#/Vol]9.12 10*3/uLAdams County Hospital ClinicCT Neck W contrast Tristin 24-90-3336SOTWDHRACP: Primary NIRADS Category: 1. Expected post-treatment changes in the neck without evidence of recurrent disease in the primary site. Neck NIRADS Category: 1. No evidence of abnormal lymph nodes. [email or web address] Transcribe Date/Time: Oct 27 2022 11:56A Dictated by: KALPANA HAMPTON MD This examination was interpreted and the report reviewed and electronically signed by: KALPANA HAMPTON MD on Oct 27 2022 12:14PM EST Thank you for allowing us to participate in the care of your patient. Should there be any questions regarding this interpretation, please call [phone]. 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 Parotid and submandibular spaces are normal. Rfp Writer spaces appear normal. Infrahyoid Neck: Hypopharynx, larynx, [...] focal consolidation or mass. 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 Parotid and submandibular spaces are normal. Rfp Writer spaces appear normal. Infrahyoid Neck: Hypopharynx, larynx, [...] 1. No evidence of abnormal lymph nodes. [email or web address] [email or web address] Transcribe Date/Time: Oct 27 2022 11:56A Dictated by: KALPANA HAMPTON MD This examination was interpreted and the report reviewed and electronically signed by: KALPANA HAMPTON MD on Oct 27 2022 12:14PM EST Thank you for allowing us to participate in the care of your patient. Should there be any questions regarding this interpretation, please call [phone]. If you are unable to reach us at the number above, please feel free to contact [facility] at [phone]. [facility] Neck W contrast IVOrdered By: Ccf Provider on 10-27-[address] [facility] HospitalComprehensive metabolic 2000 panelOrdered By: Kelly Goodson on 46-20-9588Kzgngwf [Mass/Vol]4.3 g/dL3.9 - 4.9 g/dLWoodruff ClinicALP [Catalytic activity/Vol]89 U/L38 - 113 U/LCleveland ClinicALT [Catalytic activity/Vol]7 U/LLow10 - 54 U/LCleveland ClinicAnion gap [Moles/Vol]10 mmol/L9 - 18 mmol/L Woodruff ClinicAST [Catalytic activity/Vol]8 U/LLow14 - 40 U/LCleveland Clinic Bilirubin [Mass/Vol]0.3 mg/dL0.2 - 1.3 mg/dLWoodruff ClinicCalcium [Mass/Vol] 9.6 mg/dL8.5 - 10.2 mg/dLWoodruff ClinicChloride [Moles/Vol]104 mmol/L97 - 105 mmol/LCleveland ClinicCO2 [Moles/Vol]27 mmol/L22 - 30 mmol/LCleveland Clinic Creatinine [Mass/Vol]0.93 mg/dL0.73 - 1.22 mg/dLMercy Health St. Charles HospitalGFR/1.73 sq M.predicted among non-blacks MDRD (S/P/Bld) [Vol rate/Area]95 mL/min/{1.73_m2}- PINFClevelOhioHealth Van Wert HospitalComment on above:Estimated Glomerular Filtration Rate (eGFR) [...] GFR.Glucose [Mass/Vol]98 mg/dL74 - 99 mg/dLMercy Health St. Charles HospitalComment on above:The [place] Diabetes Association (ADA) provides guidance for cutoff [...] Standards of Medical Care in Diabetes 2016, [place] [employer]. Diabetes Care. 2016.39(Suppl 1). Interpretation and review of laboratory resultsAbnormalCleveland ClinicPotassium [Moles/Vol]4.5 mmol/L3.7 - 5.1 mmol/LCleveland ClinicProtein [Mass/Vol]6.6 g/dL 6.3 - 8.0 g/dLWoodruff ClinicSodium [Moles/Vol]141 mmol/L136 - 144 mmol/L [facility] Charles HospitalUrea nitrogen [Mass/Vol]12 mg/dL9 - 24 mg/dLNorwalk Memorial HospitalNo Panel Informationon 78-07-6264Rzpcvsqwg Study observation (narrative)[facility] aminotransferase [Enzymatic activity/volume] in Serum or PlasmaOrdered By: Griselda Krause on 42-50-8187KCM [Catalytic activity/Vol]7 U/L7-52[facility] HospitalAlbumin [Mass/volume] in Serum or Plasma by Bromocresol green (BCG) dye binding methoOrdered By: Griselda Krause on 07-96-5194Ygmewve BCG dye [Mass/Vol]4.2 g/dL3.5-5.7FTriHealth Bethesda Butler HospitalAlkaline phosphatase [Enzymatic activity/volume] in Serum or PlasmaOrdered By: Griselda Krause on 93-41-3179UUV [Catalytic activity/Vol]76 U/L 34-104[facility] HospitalAspartate aminotransferase [Enzymatic activity/volume] in Serum or PlasmaOrdered By: Griselda Krause on 75-28-5187POM [Catalytic activity/Vol]10 U/S05-44DsitvpjuyOhiohealth Riverside Methodist HospitalBasophils Auto (Bld) [#/Vol]Ordered By: Griselda Krause on 13-90-5024Golivmmxz (Bld) [#/Vol]0.0 10*3/uL0.0-0.2FTriHealth Bethesda Butler HospitalBasophils/100 WBC Auto (Bld) Ordered By: Griselda Krause on 61-70-8594Jfqgqwztd/100 WBC (Bld)0.9 %.[facility] HospitalBilirubin.total [Mass/volume] in Serum or PlasmaOrdered By: Griselda Krause on 83-46-8691Hqkrwxzzz [Mass/Vol]0.4 mg/dL0.3-1.0[facility] HospitalCalcium [Mass/volume] in Serum or PlasmaOrdered By: Griselda Krause on 57-20-3741Girekhx [Mass/Vol]9.1 mg/dL8.6-10.3FTriHealth Bethesda Butler HospitalCarbon dioxide, total [Moles/volume] in Serum or PlasmaOrdered By: Griselda Krause on 41-66-7036HM2 [Moles/Vol]28.3 mmol/L21.0-31.0[facility] HospitalChloride [Moles/volume] in Serum or PlasmaOrdered By: Griselda Krause on 05-91-3197Fdpwlnap [Moles/Vol]105 mmol/R42-225NdkqlbxwxOhiohealth Riverside Methodist Hospital Cholesterol [Mass/volume] in Serum or PlasmaOrdered By: Griselda Krause on 10-24-2022 Cholesterol [Mass/Vol]240 mg/oT671-633HqpdfvoycOhiohealth Riverside Methodist HospitalComment on above:Chol less than 200 mg/dl low riskChol 201-239 mg/dl borderline riskChol 240 mg/dl and greater high riskCholesterol in LDL Calc [Mass/Vol]Ordered By: Griselda Krause on 89-96-5209Cnmzwaggukq in LDL [Mass/Vol]169 mg/dL0-100[facility] HospitalComment on above:LDL ATP III CLASSIFICATIONLDL less than 100 mg/dL OptimalLDL 100-129 mg/dL Near or above cvxkwwyHLE048-941 mg/dL Borderline highLDL 160-189 mg/dL HighLDL greater than 189 mg/dL Very high Cholesterol in VLDL Calc [Mass/Vol]Ordered By: Griselda Krause on 10-24-2022 Cholesterol in VLDL [Mass/Vol]35 mg/dLOhiohealth Riverside Methodist Hospital Creatinine [Mass/volume] in Serum or PlasmaOrdered By: Griselda Krause on 10-24-2022 Creatinine [Mass/Vol]0.88 mg/dL0.70-1.30[facility] Eosinophils Auto (Bld) [#/Vol]Ordered By: Griselda Krause on 16-30-0766Hbupahbfkuf (Bld) [#/Vol]0.1 10*3/uL0.0-0.45[facility] HospitalEosinophils/100 WBC Auto (Bld)Ordered By: Griselda Krause on 68-25-7941Taijzxottka/100 WBC (Bld)2.0 %.[facility] HospitalErythrocyte distribution width Auto (RBC) [Ratio]Ordered By: Griselda Krause on 11-54-7112Nvtehqlqhcm distribution width (RBC) [Ratio]14.7 %12.0-14.8[facility] HospitalGlobulin Calc (S) [Mass/Vol]Ordered By: Griselda Krause on 75-47-9167Qrhypsvf (S) [Mass/Vol]2.1 g/dL [facility] HospitalGlucose [Mass/volume] in Serum or PlasmaOrdered By: Griselda Krause on 60-86-2189Hrpxqhn [Mass/Vol]82 mg/xC54-074DwsxxyisvOhiohealth Riverside Methodist HospitalComment on above:ADA recommended reference rangeRandom Glucose Reference Range is dependent on time and content of last meal. Glucose of more than 200 mg/dL in a nonstressed, ambulatory subject supports the diagnosisof Diabetes Mellitus.Hematocrit Auto (Bld) [Volume fraction]Ordered By: Griselda Krause on 64-33-6638Rzgagyqmfq (Bld) [Volume fraction]43.4 %38.8-50.0[facility] HospitalHemoglobin [Mass/volume] in BloodOrdered By: Griselda Krause on 88-36-1235Ugzhkisfqi (Bld) [Mass/Vol]14.5 g/dL13.0-17.0[facility] HospitalLeukocytes [#/volume] corrected for nucleated erythrocytes in Blood by Automated counOrdered By: Griselda Krause on 75-85-1321CAB corrected for nucl RBC Auto (Bld) [#/Vol]5.0 10*3/uL4.1-10.5FTriHealth [facility] Hospital Lymphocytes Auto (Bld) [#/Vol]Ordered By: Griselda Krause on 53-88-0469Jfzxmpxgabh (Bld) [#/Vol]2.0 10*3/uL1.00-4.8[facility] HospitalLymphocytes/100 WBC Auto (Bld)Ordered By: Griselda Krause on 15-58-8660Czxdfpxvvki/100 WBC (Bld)39.8 %.[facility] FoundationH Auto (RBC) [Entitic mass]Ordered By: Griselda Krause on 76-01-0561FOF (RBC) [Entitic mass]31.5 pg27.5-35.2FTriHealth Bethes[facility] Butler HospitalMCHC Auto (RBC) [Mass/Vol]Ordered By: Griselda Krause on 78-45-7650TKJM (RBC) [Mass/Vol]33.5 g/dL32.5-35.6FTriHealth Bethesda Butler HospitalMCV Auto (RBC) [Entitic vol]Ordered By: Griselda Krause on 46-08-3513ENT (RBC) [Entitic vol]94.0 fL83.5-101[facility] HospitalMonocytes Auto (Bld) [#/Vol]Ordered By: Griselda Krause on 94-03-7569Jbdjngdkz (Bld) [#/Vol]0.3 10*3/uL0.0-0.8[facility] HospitalMonocytes/100 WBC Auto (Bld) Ordered By: Griselda Krause on 70-63-5000Vewvkwjij/100 WBC (Bld)5.4 %.[facility] HospitalNeutrophils Auto (Bld) [#/Vol]Ordered By: Griselda Krause on 00-41-5854Irwkwkllzfc (Bld) [#/Vol]2.6 10*3/uL1.8-7.7FTriHealth Bethesda Butler HospitalNeutrophils/100 WBC Auto (Bld)Ordered By: Griselda Krause on 10-24-2022 Neutrophils/100 WBC (Bld)51.9 %.[facility] HospitalNo Panel InformationOrdered By: Griselda Krause on 43-55-1514Xvpelksdx GFR (CKD-EPI)> 60.0 mL/MinOhiohealth Riverside Methodist HospitalPharmacy Creatinine Clearance (ChemN/A [facility] HospitalNucleated erythrocytes [Presence] in Blood by Automated countOrdered By: Griselda Krause on 52-54-8143Trfqdpmzw RBC Auto Ql (Bld) 0.1 /100{WBC}0-0.5FTriHealth Bethesda Butler HospitalPlatelet mean volume Auto (Bld) [Entitic vol]Ordered By: Griselda Krause on 09-14-7976Ydhwjlns mean volume (Bld) [Entitic vol]9.6 fL6.6-10.1FTriHealth Bethesda Butler HospitalPlatelets Auto (Bld) [#/Vol]Ordered By: Griselda Krause on 10-46-4140Oyomdphqk (Bld) [#/Vol]247 10*3/kF801-793HsosttszfOhiohealth Riverside Methodist HospitalPotassium [Moles/volume] in Serum or PlasmaOrdered By: Griselda Krause on 61-01-9027Bgmnpogcc [Moles/Vol]4.0 mmol/L 3.5-5.1FTriHealth Bethesda Butler HospitalProstate specific Ag [Mass/volume] in Serum or PlasmaOrdered By: Griselda Krause on 76-36-7037Hiikukpv specific Ag [Mass/Vol]0.370 ng/mL0.000-4.000[facility] HospitalProtein [Mass/volume] in Serum or PlasmaOrdered By: Griselda Krause on 46-69-4383Sddbyta [Mass/Vol]6.3 g/dL6.4-8.9[facility] HospitalRBC Auto (Bld) [#/Vol] Ordered By: Griselda Krause on 59-29-0183SHH (Bld) [#/Vol]4.61 10*6/uL3.90-5.60 [facility] Centererum or plasma albumin/globulin mass ratio Ordered By: Griselda Krause on 41-15-6814Fuhhpvy/Globulin [Mass ratio]2.0 {ratio} [facility] Centererum or plasma anion gap determinationOrdered By: Griselda Krause on 14-16-7174Yxbkf gap [Moles/Vol]11.7 mmol/L6.0-15.0[facility] Centererum or plasma high density lipoprotein (HDL) cholesterol measurementOrdered By: Griselda Krause on 62-33-5223Kifyhveoeuz in HDL [Mass/Vol]36 mg/fS66-04UxscsyvthOhiohealth Riverside Methodist HospitalComment on above:HDL CHOL ATP-III CLASSIFICATION Cardiovascular RiskHDL > or equal to 60 mg/dL LOWHDL < 40 mg/dL HIGHSerum or plasma total cholesterol/high density lipoprotein (HDL) cholesterol mass ratOrdered By: Griselda Krause on 10-24-2022 Cholesterol.total/Cholesterol in HDL [Mass ratio]6.7 {ratio}<5.0[facility] Centerodium [Moles/volume] in Serum or PlasmaOrdered By: Griselda Krause on 55-29-5520Gqvarq [Moles/Vol]141 mmol/V894-254TkcdletjeOhiohealth Riverside Methodist HospitalThyrotropin [Units/volume] in Serum or PlasmaOrdered By: Griselda Krause on 58-38-6239RVD Qn1.26 m[IU]/L0.45-5.33[facility] Triglyceride [Mass/volume] in Serum or PlasmaOrdered By: Griselda Krause on 93-92-1763Kqynbxchlzjm [Mass/Vol]175 mg/dL0-149[facility] Comment on above:TRIG ATP III CLASSIFICATIONTRIG less than 150 mg/dL NormalTRIG 150-199 mg/dL Borderline highTRIG 200-500 mg/dL High TRIG greater than 500 mg/dL Very highStandard traceable to the Center for Disease Conrtrol and Prevention (CDC) test method.Urea nitrogen [Mass/volume] in Serum or PlasmaOrdered By: Griselda Krause on 17-33-3325Bwpb nitrogen [Mass/Vol]15 mg/dL7-25[facility] HospitalWBC Auto (Bld) [#/Vol]Ordered By: Griselda Krause on 03-30-6818VQH (Bld) [#/Vol]5.0 10*3/uL4.1-10.5FTriHealth Bethesda Butler HospitalBRIEF OP NOTon 25-52-1757QUZAY OP NOTHNO ID: [id number] Author: Flores Cat APRN.ASSISTANT MANAGER AIRSIDE OPERATIONS Service: Interventional Radiology Author Type: Nurse Practitioner Type: Brief Op Note Filed: 09/28/2022 3:14 PM Note Text: BRIEF OPERATIVE / PROCEDURE NOTE LOG ID: [id number] SURGERY/PROCEDURE DATE: 09/28/2022 INCISION/PROCEDURE START TIME: 1:58 PM INCISION CLOSE/PROCEDURE END TIME: 2:27 PM SURGEON(S)/PROCEDURALIST(S) AND ANIMAL CHIROPRACTOR(S): Surgeon(s) and Role: * Flores Cat APRN.ASSISTANT MANAGER AIRSIDE OPERATIONS - Primary No Additional Staff SURGERY/PROCEDURE(S): LP [...] Melendez DATE: September 28, 2022 TIME: 3:10 [facility]on 61-96-9046XL LUMBAR PUNCTURE DIAG* * *Final Report* * * DATE OF EXAM: Sep 28 2022 2:41PM [facility] 7594 - IR LUMBAR PUNCTURE DIAG [...] guidance was performed in conjunction with the physical therapist technician. Plane A, Air Kerma: 20.0 mGy Dose Area Product (DAP): 47914.1 mGy*cm2 Fluoro time: 3:54 min: sec Post-Procedure: [...] procedure was performed by: Flores Cat APRN.CNP Soil Field Technician: HARPER Transcribe Date/Time: Sep 28 2022 3:15P Dictated by : FLORES CAT CNP This examination was interpreted and the report reviewed and electronically signed by: FLORES CAT CNP on Sep 28 2022 3:22PM EST [id number] Hospital PROGon [id number] PROGHNO ID: [id number] Author: Court Magana RN Service: Nursing Author [...] Primary Care Provider Electronically Signed By: Court ChristensenNew [facility] BRAIN WO/W IVCONon 87-04-2214Hxbqxwijp ClinicCOVID + FLU Quick Testingon 08-01-2022 SARS-CoV-2 (COVID-19) RNA JER+probe Ql (Unsp spec)NegativeRay County Memorial HospitalCareKinesis Other COVID + FLU Quick TestingneagativeNthe rehabilitation institute of st. [place] [employer] Other COVID + FLU Quick TestingNegativeNoaudrain medical center [employer] Other RSVon 97-77-9690MGB Ag IA Ql (Unsp spec)PositiveGC-[employer] Other Cerebrospinal fluid post-centrifugation appearance determinationOrdered By: Oziel Cadena on 04-52-1843Igkkzynjuo (Spun CSF) ColorlessColorlessOhiohealth Riverside Methodist HospitalCerebrospinal fluid sample tube volume measurementOrdered By: Oziel Cadena on 28-09-6221Tzfenape volume (CSF)22.0 mLOhiohealth Riverside Methodist HospitalColor CSFOrdered By: Oziel Cadena on 19-15-8797Mahpc (CSF)ColorlessColorlessOhiohealth Riverside Methodist Hospital Manual cerebrospinal fluid erythrocytes count (number/volume)Ordered By: Oziel Cadena on 75-30-6985UAN Manual cnt (CSF) [#/Vol]0 /uLOhiohealth Riverside Methodist HospitalComment on above:The reference interval and other method performance specifications have not been established for this body fluid. The test result must be integrated into the clinical context for interpretation.No Panel InformationOrdered By: Oziel Cadena on 04-74-0299CPT AppearanceClearClear [facility] HospitalCSF Tube NumberTube number: 1FTriHealth Bethesda Butler HospitalNucleated cells [#/volume] in Cerebral spinal fluid by Manual countOrdered By: Oziel Cadena on 92-19-0085Gzlhzexoz cells Manual cnt (CSF) [#/Vol]0.003 10*3/uL0-5FTriHealth Bethesda Butler HospitalActivated partial thromboplastin time (aPTT) in platelet poor plasma by coagulation aOrdered By: Loi Wong on 92-06-0632sMFA Coag (PPP) [Time]32.8 s25.1-36.5FTriHealth Bethesda Butler HospitalBasophils Auto (Bld) [#/Vol]Ordered By: Loi Wong on 18-32-6582Uegahrywg (Bld) [#/Vol]0.1 10*3/uL0.0-0.2FTriHealth Bethesda Butler HospitalBasophils/100 WBC Auto (Bld)Ordered By: Loi Wong on 04-16-2022 Basophils/100 WBC (Bld)1.2 %.[facility] HospitalCreatine kinase [Enzymatic activity/volume] in Serum or PlasmaOrdered By: Loi Wong on 76-01-0137TQ [Catalytic activity/Vol]69 U/D77-807LzixhcgdyOhiohealth Riverside Methodist HospitalCreatinine and Glomerular filtration rate.predicted panel (S/P/Bld)Ordered By: Loi Wong on 18-29-3433Bnrhwxjhct [Mass/Vol]0.97 mg/dL0.64-1.27[facility] HospitalEosinophils Auto (Bld) [#/Vol]Ordered By: Loi Wong on 91-17-3182Ctohrjihslu (Bld) [#/Vol]0.1 10*3/uL0.0-0.45[facility] HospitalEosinophils/100 WBC Auto (Bld)Ordered By: Loi Wong on 99-42-4201Qtxbqxolltp/100 WBC (Bld)1.2 %.[facility] Erythrocyte distribution width Auto (RBC) [Ratio]Ordered By: Loi Wong on 12-23-3148Xzzdysqbibb distribution width (RBC) [Ratio]14.1 %12.0-14.8[facility] HospitalEstimated glomerular filtration rate (GFR) non- AmericanOrdered By: Loi Wong on 06-59-4745OJA/1.73 sq M.predicted among non-blacks MDRD (S/P/Bld) [Vol rate/Area]> 60 mL/MinOhiohealth Riverside Methodist HospitalHematocrit Auto (Bld) [Volume fraction]Ordered By: Loi Wong on 31-03-3600Vhbxhcmysc (Bld) [Volume fraction]43.2 %38.8-50.0[facility] HospitalHemoglobin [Mass/volume] in BloodOrdered By: Loi Wong on 58-27-1361Xpeqsmvyjs (Bld) [Mass/Vol]14.7 g/dL13.0-17.0[facility] HospitalLaboratory - Chemistry and Chemistry - challengeOrdered By: Loi Wong on 09-33-1159Purlmkdavla peptide B (Bld) [Mass/Vol]29.0 pg/mL5-100 [facility] HospitalLaboratory - CoagulationOrdered By: Loi Wong on 08-18-3698DS Coag (PPP) [Time]12.0 s9.0-12.9[facility] HospitalLaboratory - Hematology and Cell countsOrdered By: Loi Wong on 70-79-6207Ifzlkaqtq RBC/100 WBC (Bld) [Ratio]0.1 %0-0.5FTriHealth Bethesda Butler HospitalLeukocytes [#/volume] in Blood by Automated countOrdered By: Loi Wong on 61-39-1810YFG (Bld) [#/Vol]7.7 10*3/uL4.5-11.0[facility] HospitalLymphocytes Auto (Bld) [#/Vol]Ordered By: Loi Wong on 02-95-4901Kzgwnafhjkl (Bld) [#/Vol]2.3 10*3/uL1.00-4.8[facility] HospitalLymphocytes/100 WBC Auto (Bld)Ordered By: Loi Wong on 18-88-1776Rzkbeumytdg/100 WBC (Bld)29.4 %.[facility] Auto (RBC) [Entitic mass]Ordered By: Loi Wong on 72-72-0185VHE (RBC) [Entitic mass]32.0 pg27.5-35.2FTriHealth Bethesda Butler HospitalMCHC Auto (RBC) [Mass/Vol]Ordered By: Loi Wong on 40-03-1105DMZH (RBC) [Mass/Vol]34.0 g/dL 32.5-35.6FTriHealth Bethesda Butler HospitalMCV Auto (RBC) [Entitic vol]Ordered By: Loi Wong on 11-32-3574DUR (RBC) [Entitic vol]94.0 fL83.5-101[facility] HospitalMonocytes Auto (Bld) [#/Vol]Ordered By: Loi Wong on 18-93-3735Gdzneujyx (Bld) [#/Vol]0.6 10*3/uL0.0-0.8[facility] HospitalMonocytes/100 WBC Auto (Bld)Ordered By: Loi Wong on 04-16-2022 Monocytes/100 WBC (Bld)7.7 %.[facility] HospitalNeutrophils Auto (Bld) [#/Vol]Ordered By: Loi Wong on 90-67-7443Unnblwdcfuk (Bld) [#/Vol]4.7 10*3/uL1.8-7.7FTriHealth Bethesda Butler HospitalNeutrophils/100 WBC Auto (Bld) Ordered By: Loi Wong on 65-10-1238Lojdyfhfqyq/100 WBC (Bld)60.5 %.[facility] HospitalNo Panel InformationOrdered By: Loi Wong on 94-62-4535E-Dimer Quantitative (PE/DVT)< 200 ng/mL0-243Ohio[facility] HospitalComment on above:The reference range for D-dimer is [...] due toco-morbid conditions.Estimated GFR ()> 60 mL/Min [facility] HospitalComment on above:GFR estimated reference range: According to KDOQI guidelines, <60 ml/min/1.73m2 is sufficient todiagnose a patient with chronic kidney disease.Pharmacy Creatinine Clearance (Chem79.33 [facility] HospitalPlatelet mean volume Auto (Bld) [Entitic vol] Ordered By: Loi Wong on 15-75-5428Ymkgsfuz mean volume (Bld) [Entitic vol] 9.7 fL6.6-10.1FTriHealth Bethesda Butler HospitalPlatelet poor plasma international normalized ratio (INR) by coagulation assay (relatOrdered By: Loi Wong on 00-75-1426DYW Coag (PPP) [Relative time]1.1 {INR}[facility] HospitalComment on above:INR Therapeutic Range A) Pre- and [...] (Bld) [#/Vol] Ordered By: Loi Wong on 72-00-1395Qpcfktkvz (Bld) [#/Vol]238 10*3/bC244-629 [facility] HospitalRBC Auto (Bld) [#/Vol]Ordered By: Loi Wong on 87-20-1901VVU (Bld) [#/Vol]4.59 10*6/uL3.90-5.60[facility] Medical CenterSerum or plasma anion gap determinationOrdered By: Loi Wong on 84-71-9283Pfhky gap [Moles/Vol]12.4 mmol/L6.0-15.0[facility] Centererum or plasma calcium measurement (mass/volume)Ordered By: Loi Wong on 03-28-8662Piplohg [Mass/Vol]9.0 mg/dL8.2-10.2FParkview Healtherum or plasma chloride measurement (moles/volume)Ordered By: Loi Wong on 70-43-0967Fajlvpss [Moles/Vol]103 mmol/I19-922JgrdirxpvSamaritan North Health Centererum or plasma creatine kinase MB (CKMB)/total creatine kinase (CK) ratio by calculaOrdered By: Loi Wong on 83-17-3217BF.MB Calc [Catalytic fraction]2.0 %0.00-2.50[facility] Centererum or plasma creatine kinase MB measurement (mass/volume)Ordered By: Loi Wong on 79-74-1937FK.MB [Mass/Vol]1.4 ng/mL0.6-6.3FParkview Healtherum or plasma glucose measurement (mass/volume)Ordered By: Loi Wong on 15-83-4556Eqqpkfj [Mass/Vol]88 mg/aZ74-030ChoutjetiOhiohealth Riverside Methodist Hospital Comment on above:ADA recommended reference rangeRandom Glucose Reference Range is dependent on time and content of last meal. Glucose of more than 200 mg/dL in a nonstressed, ambulatory subject supports the diagnosisof Diabetes Mellitus. Serum or plasma potassium measurement (moles/volume)Ordered By: Loi Wong on 86-82-8782Qcoudhywo [Moles/Vol]4.3 mmol/L3.5-5.1FParkview Healtherum or plasma sodium measurement (moles/volume)Ordered By: Loi Wong on 67-58-1362Kfbrvz [Moles/Vol]135 mmol/A019-772ZhabrxkvsSamaritan North Health Centererum or plasma total carbon dioxide measurement (moles/volume)Ordered By: Loi Wong on 42-71-8032QV3 [Moles/Vol]23.9 mmol/L22.0-30.0[facility] Centererum or plasma urea nitrogen measurement (mass/volume) Ordered By: Loi Wong on 28-33-6565Dteg nitrogen [Mass/Vol]12 mg/dL9-23 [facility] HospitalTroponin I.cardiac [Mass/volume] in Serum or Plasma by High sensitivity methodOrdered By: Loi Wong on 24-56-8111Apcffoeq I.cardiac High sensitivity method [Mass/Vol]5 pg/mL0-20[facility] HospitalCOVID Quick Testingon 58-24-5350FmywiwQnmdbtdkLmdba [employer] Other Quick Fluon 21-01-3940MGGMR Ab CF (S) [Titer]Negative [facility] Other FLUBV Ab CF (S) [Titer]NegativeMahomet [employer] Other MRI Brain w/o + w/on 94-68-9225ZCX Brain w/o + w/ HISTORY: Blurred vision, [...] signed by Jillian Morales on 01/18/2022 1413NolenaalTelmartn Natchaug HospitalCell Count + Differential, CSFon 33-45-7105IVG (Bld) [#/Vol]0.006 10*3/uLabove high threshold0 - 6DL-Mlgoynxsujaz-Dnjtecz Work Phone: [phone] Count + Differential, CSF70 1 OW-Jtyixwzpnuer-Tclrisa Work Phone: [phone] Count + Differential, CSF10 % WS-Wziigpgukayv-Ndbnuxt Work Phone: [phone] Count + Differential, CSF60 % EY-Vitptsjhtfsy-Qgohtlb Work Phone: [phone] Count + Differential, CSF30 % TN-Paktdxuaoqcs-Lrnyvrf Work Phone: [phone] Count + Differential, CSFColorlessCOLORLESS TM-Itjlifzdxxgx-Jmreohc Work Phone: [phone] Count + Differential, MGB762 /uLabove high threshold0 - 6IQ-Rpsephuiilku-Hoasimt Work Phone: [phone] Count + Differential, CSFTube 1 RZ-Aoddgrwbhorj-Bifrbxj Work Phone: [phone] Count + Differential, CSFClearCLEAR UK-Yjmozojyplzu-Katdrux Work Phone: [phone], CSF, includes smearon 89-45-6623Qgrcflgh identified Cx Nom (CSF)HF-Qrgzcklgwcuf-Sdvyppk Work Phone: [phone] 93-46-1770Avhbyct in CSF/Albumin in Serum or Plasma (S/P+CSF) [Relative ratio]7.9 {ratio}0.0-9.5PC-Zzsjhxutuojh-Lfmghvk Work Phone: [phone] in CSF/Albumin in Serum or Plasma (S/P+CSF) [Relative ratio]StwjkqfuTH-Vnbdwthmeqbp-Jvyebuq Work Phone: [phone] - Chemistry and Chemistry - challengeon 99-14-9576Ntkumth (CSF) [Mass/Vol]36 mg/dLabove high threshold0-35 RN-Zacvhdagkncg-Bjgnqjl Work Phone: [phone] [Mass/Vol]4578 mg/cF4307-4250 HZ-Vyspsrztopse-Aedvphb Work Phone: [phone] (CSF) [Mass/Vol]2.2 mg/dL0.0-6.0 GA-Lsonixfrfnlt-Qeszool Work Phone: [phone] [Mass/Vol]496 mg/dLbelow low tdvchagnw311-2849 TG-Fhkvaitrjfqs-Gozaujp Work Phone: [phone] on above:REFERENCE INTERVAL: Immunoglobulin GAccess complete set of age- and/or gender-specific reference intervals for this test in the [employer] [facility] Test Directory ([employer]).IgG clearance/Albumin clearance (S+CSF) [Ratio]0.56 {ratio}0.28-0.43FL-Bxdzhdzxikfh-Imcjezq Work Phone: [phone] synthesis rate Calc (S+CSF) [Mass/Time]0.5 mg/d <=8.6BM-Ikozsvuyodal-Jdiimew Work Phone: [phone]/Albumin (CSF) [Mass ratio]0.06 {ratio}below low threshold0.09-0.99EV-Bknwkrrhcjxw-Rnhsvyk Work Phone: [phone] bands Elph (CSF) [Interp]NegativeNegative OI-Zsjxifvyeqyt-Xrtdfcb Work Phone: [phone] bands Elph Curtis (CSF) [Interp]See Note WZ-Ylycsishbtad-Noemdfh Work Phone: [phone] on above:Isoelectric focusing/immunofixation revealed no oligoclonal bands in either the CSF or the serum. This is considered to be a negative result for oligoclonal bands. Approximately 5 percent of patientswith clinically definitive multiple sclerosis will have a negative result.Performed By: [employer] [place] [id number] Director: Paula I. Kane, MDAlbumin (CSF) [Mass/Vol]Canceled IR-Svzlqeyypjzs-Chidnoj Work Phone: [phone] [Mass/Vol]WxcgahyjSA-Iobevoslclxi-Uhacmmz Work Phone: [phone] (CSF) [Mass/Vol]56 mg/dL40 - 70 LG-Cgpkutzbbzru-Rmjlhbb Work Phone: [phone] (CSF) [Mass/Vol]YxnadwlmNU-Prbnjafptgdx-Fuaorav Work Phone: [phone] [Mass/Vol]PpgogccgDZ-Hlgyczsmmvhr-Mwkzbex Work Phone: [phone] clearance/Albumin clearance (S+CSF) [Ratio] CjdfweriWQ-Hvdmsjyoudhm-Vntsynv Work Phone: [phone] synthesis rate Calc (S+CSF) [Mass/Time]Canceled FP-Pgndjxtqhrwi-Ggytwme Work Phone: [phone]/Albumin (CSF) [Mass ratio]Canceled UH-Pymbyxcmjxdb-Eoctfhz Work Phone: [phone] bands Elph (CSF) [Interp]Canceled ZD-Mdefovrknvta-Xziplkv Work Phone: [phone] bands Elph Curtis (CSF) [Interp]Canceled PW-Vpspuprqrqrp-Agosoxo Work Phone: [phone] (CSF) [Mass/Vol]66 mg/dLabove high ejerrtecn78 - 56LN-Pqmmxglfzazg-Wfxcyeu Work Phone: [phone] Panel Informationon {Bands}0-1 MN-Mblkcbdeasgq-Tfgnpze Work Phone: [phone]-Rgsregtfopul-Lynn Work Phone: [phone]-Ptsyiyvznnwr-Lynn Work Phone: [phone] Review, CSFon 10-25-2812Vukt Review, CSFR.REHANA ZV-Dmkfuhwktbcs-Xfvjnii Work Phone: [phone] on above:By her/his signature above, the Pathologist listed as making the final interpretation certifies that she/he has personally reviewed this case. HEMORRHAGIC SPECIMEN, NO MALIGNANT CELLS IDENTIFIED.Blood Pressure Cuff Sizeon [id number] risk assessmenta) No falls within the last duguMA-Lemnlus-EstfugrOSF [facility] Work Phone: Tobacco use status CPHSa) BahZF-Moxgroh-ZefpyzdOSF [facility] Work Phone: blood Pressure Cuff UppoNgakmIK-Tcffxqt-NyqyoasOSF 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 In [...] saw Dr. Ba a neurologist in [facility]. He describes his vision as [...] MG Oral Tablet Vitals Vital Signs Recorded: 72Nsh6426 09:38AM Fjoftmpiwiw07.2 F Heart Rate63 Sxnamlhhkog80 Xnbvedpe900 Cjldqdtvh00 Blood Pressure Cuff SizeAdult Height5 ft 7.13 in Yawezh741 lb 6 oz BMI Nqlvnzyrxa48.05 kg/m2 BSA Calculated1.91 Tobacco Usea) Yes Fall Screeninga) No falls within the last year O2 Mehjomwxvq28 Pain Scale7 Physical Exam Constitutional - General appearance: No acute distress, well de (more content not included)...NormalUH TouchworksOffice Visit Presurgicalon 70-83-1030Ixofee Visit PresurgicalDiagnoses/Problems Assessed Weight loss (783.21) (R63.4) Anxiety (300.00) (F41.9) Depression (311) (F32.A) History of high cholesterol (V12.29) (Z86.39) Ischemic demyelination of brain (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 In [...] saw Dr. Ba a neurologist in [facility]. He describes his vision as [...] MG Oral Tablet Vitals Vital Signs Recorded: 19Vgm8599 09:38AM Qxpntwoatld00.2 F Heart Rate63 Ibsxtmqqvzz88 Mlcwpfzn760 Ffvrkisyp54 Blood Pressure Cuff SizeAdult Height5 ft 7.13 in Ecpdtb391 lb 6 oz BMI Wmakkqinko64.05 kg/m2 BSA Calculated1.91 Tobacco Usea) Yes Fall Screeninga) No falls within the last year O2 Pydcouplod09 Pain Scale7 Ph (more content not included)...NormalUH [facility]Jeff[facility] W Auto Differential panel (Bld)on 07-11-4073Kifcmzmav (Bld) [#/Vol]0.06 10*3/uLNINFMercy Health St. Charles Hospital Basophils/100 WBC (Bld)0.8 %[facility] HospitalDifferential cell count method Nom (Bld)AutoCleveland ClinicEosinophils (Bld) [#/Vol]0.11 10*3/uLNINFMercy Health St. Charles HospitalEosinophils/100 WBC (Bld)1.5 %[facility] HospitalErythrocyte distribution width (RBC) [Ratio]12.8 %11.5 - 15.0 %[facility] HospitalHematocrit (Bld) [Volume fraction]43.7 %39.0 - 51.0 %[facility] HospitalHemoglobin (Bld) [Mass/Vol]14.6 g/dL 13.0 - 17.0 g/dLMercy Health St. Charles HospitalImmature granulocytes (Bld) [#/Vol]NINFClevelOhioHealth Van Wert HospitalImmature granulocytes/100 WBC (Bld)0.3 %[facility] Charles HospitalLymphocytes (Bld) [#/Vol]1.75 10*3/uLMercy Health St. Charles HospitalLymphocytes/100 WBC (Bld)23.7 %[facility] CenterH (RBC) [Entitic mass]32.7 pg26.0 - 34.0 pgClevelSauk Centre HospitalHC (RBC) [Mass/Vol]33.4 g/dL30.5 - 36.0 g/dLLakeHealth Beachwood Medical CenterV (RBC) [Entitic vol]98.0 fL80.0 - 100.0 fLCleveland ClinicMonocytes (Bld) [#/Vol]0.52 10*3/uLNINF [facility] HospitalMonocytes/100 WBC (Bld)7.0 %[facility] HospitalNeutrophils (Bld) [#/Vol]4.92 10*3/uLMercy Health St. Charles HospitalNeutrophils/100 WBC (Bld)66.7 %[facility] HospitalNucleated RBC (Bld) [#/Vol]NINFCleveland ClinicNucleated RBC/100 WBC (Bld) [Ratio]0.0 %/[address] Charles HospitalPlatelet mean volume (Bld) [Entitic vol] 10.8 fL9.0 - 12.7 [facility] ClinicPlateboston sanatorium (Bld) [#/Vol]246 10*3/Wilson HealthRBC (Bld) [#/Vol]4.46 10*6/uL4.20 - 6.00 m/Wilson HealthWBC (Bld) [#/Vol]7.38 10*3/Wilson HealthThis is an appended report. These results have been appended to a previously verified report.[facility] HospitalCT Chest W contrast Tristin 23-18-3833HYVIAANDNZ: 1. Left-sided subcentimeter pulmonary nodules, stable. 2. [...] any questions regarding this interpretation, please call [phone]. If you are unable to reach us at the number above, please feel free to contact [facility] eRadiology at [phone]. MATHEW_DO_NOT_USE_DIVISION OF RADIOLOGY* * *Final Report* * * DATE OF EXAM: Oct 06 2021 8:22AM [facility] [place] 0539 - CT CHEST W IVCON / [...] images through the upper abdomen appear stable. [employer] Scout (topogram) images: No additional findings. ZZZ_DO_NOT_USE_DIVISION OF RADIOLOGYProvider, [facility] [place] - 10/06/2021 * * *Final Report* * * DATE OF EXAM: Oct 06 2021 8:22AM [facility] [place] 0539 - CT CHEST W IVCON / [...] images through the upper abdomen appear stable. [employer] Scout (topogram) images: No additional findings. IMPRESSION IMPRESSION: [...] any questions regarding this interpretation, please call [phone]. If you are unable to reach us at the number above, please feel free to contact [facility] eRadiology at [phone]. [facility] HospitalCT Neck W contrast Tristin 20-98-4688LCSITKTBRO: MODERATE DEGENERATIVE CHANGES INVOLVING THE CERVICAL SPINE. [...] any questions regarding this interpretation, please call [phone]. If you are unable to reach us at the number above, please feel free to contact [facility] at [phone]. ZZZ_DO_NOT_USE_DIVISION OF RADIOLOGY* * *Final Report* * * DATE OF EXAM: Oct 06 2021 8:22AM [facility] [place] 0013 - CT NECK SOFT TISSUE W [...] bifurcations and carotid siphons. ZZZ_DO_NOT_USE_DIVISION OF RADIOLOGYProvider, [facility] [place] - 10/06/2021 * * *Final Report* * * DATE OF EXAM: Oct 06 2021 8:22AM [facility] [place] 0013 - CT NECK SOFT TISSUE W [...] any questions regarding this interpretation, please call [phone]. If you are unable to reach us at the number above, please feel free to contact [facility] eRadiology at [phone]. [facility] Charles HospitalCT Neck W contrast IVOrdered By: Ccf Provider on 10-06-[address] Charles HospitalComprehensive metabolic 2000 panelOrdered By: Micheal Vizcaino on 48-05-6077Chzhshl [Mass/Vol]4.5 g/dL3.9 - 4.9 g/dLWoodruff ClinicALP [Catalytic activity/Vol]82 U/L38 - 113 U/LCleveland ClinicALT [Catalytic activity/Vol]25 U/L10 - 54 U/LCleveland ClinicAnion gap [Moles/Vol]10 mmol/L9 - 18 mmol/L Woodruff ClinicAST [Catalytic activity/Vol]21 U/L14 - 40 U/LCleveland [facility] Bilirubin [Mass/Vol]0.6 mg/dL0.2 - 1.3 mg/dLWoodruff ClinicCalcium [Mass/Vol] 9.5 mg/dL8.5 - 10.2 mg/dLWoodruff ClinicChloride [Moles/Vol]106 mmol/LHigh97 - 105 mmol/LCleveland ClinicCO2 [Moles/Vol]29 mmol/L22 - 30 mmol/LCriverside methodist hospitaland Clinic Creatinine [Mass/Vol]1.01 mg/dL0.73 - 1.22 mg/dLMercy Health St. Charles HospitalGFR/1.73 sq M.predicted among non-blacks MDRD (S/P/Bld) [...] eGFRmay not accurately reflect actual GFR.Glucose [Mass/Vol]107 mg/dYEgnb36 - 99 mg/dLMercy Health St. Charles HospitalComment on above:The [place] Diabetes Association (ADA) provides guidance for cutoff [...] Standards of Medical Care in Diabetes 2016, [place] Diabetes Association. Diabetes Care. 2016.39(Suppl 1). Interpretation and review of laboratory resultsAbnormalCleveland ClinicPotassium [Moles/Vol]4.2 mmol/L3.7 - 5.1 mmol/LCleveland ClinicProtein [Mass/Vol]6.5 g/dL 6.3 - 8.0 g/dLWoodruff ClinicSodium [Moles/Vol]145 mmol/CTcbe221 - 144 mmol/L [facility] Charles HospitalUrea nitrogen [Mass/Vol]10 mg/dL9 - 24 mg/dLNorwalk Memorial HospitalNo Panel Informationon 94-02-9850Gyvfptkhh Study observation (narrative)[facility] HospitalCOVID + FLU Quick Testingon 59-93-9155SMRE-CoV-2 (COVID-19) RNA JER+probe Ql (Unsp spec)NegativeNort [employer] Other COVID + FLU Quick TestingNegativeMahomet [employer] Other COVID Quick Testingon 74-29-4474VzbpypTnjexkobKatpu [employer] Other Basophils Auto (Bld) [#/Vol]on 54-57-3350Rhnugpupx (Bld) [#/Vol]0.0 10*3/uL0.0-0.2FSelect Medical Specialty Hospital [facility] CtrBasophils/100 WBC Auto (Bld)on 07-51-5321Ryfgwugpu/100 WBC (Bld)0.6 %[facility] CtrBlood hemoglobin measurement (mass/volume)on 75-36-2933Sneolpagto (Bld) [Mass/Vol]14.4 g/dL13.0-17.0[facility] CtrBlood leukocytes automated count (number/volume)on 68-95-0219GQF (Bld) [#/Vol]7.4 10*3/uL4.5-11.0 [facility] CtrEosinophils Auto (Bld) [#/Vol]on 09-20-2020 Eosinophils (Bld) [#/Vol]0.1 10*3/uL0.0-0.45[facility]tr Eosinophils/100 WBC Auto (Bld)on 18-10-3170Xcfrrcifsyf/100 WBC (Bld)0.9 % [facility] CtrErythrocyte distribution width Auto (RBC) [Ratio] on 68-69-8538Cbhgjehfjxu distribution width (RBC) [Ratio]14.6 %12.0-14.8 [facility] CtrHematocrit Auto (Bld) [Volume fraction]on 98-43-7150Jigfatkplj (Bld) [Volume fraction]41.7 %38.8-50.0[facility] CtrLymphocytes Auto (Bld) [#/Vol]on 31-14-2266Ktenlvwyrgf (Bld) [#/Vol] 1.6 10*3/uL1.00-4.8[facility] CtrLymphocytes/100 WBC Auto (Bld) on 80-43-8950Jsmuyfjrvkc/100 WBC (Bld)21.3 %St. Rita'S HospitalMCH Auto (RBC) [Entitic mass]on 66-08-9089AHE (RBC) [Entitic mass]32.4 pg27.5-35.2 [facility] [facility]'S HospitalMCHC Auto (RBC) [Mass/Vol]on 86-30-6660OBBR (RBC) [Mass/Vol]34.5 g/dL32.5-35.6FCleveland Clinic South Pointe HospitalMCV Auto (RBC) [Entitic vol]on 92-45-3866QHO (RBC) [Entitic vol]93.9 fL83.5-101[facility] CtrMonocytes Auto (Bld) [#/Vol]on 95-45-9544Jiohxcxga (Bld) [#/Vol]0.6 10*3/uL0.0-0.8[facility] CtrMonocytes/100 WBC Auto (Bld)on 06-27-1744Gsqenzpzp/100 WBC (Bld)8.6 %[facility] Ctr Neutrophils Auto (Bld) [#/Vol]on 82-07-2055Cidwljysxai (Bld) [#/Vol]5.1 10*3/uL 1.8-7.7FSelect Medical Specialty Hospital - [facility] CtrNeutrophils/100 WBC Auto (Bld)on 09-20-2020 Neutrophils/100 WBC (Bld)68.6 %[facility] CtrOtheron 09-20-2020 Nucleated RBC/100 WBC (Bld) [Ratio]0.0 %0-0.5FSelect Medical Specialty Hospital - [facility] Ctr Platelet mean volume Auto (Bld) [Entitic vol]on 33-50-8622Oatliodw mean volume (Bld) [Entitic vol]9.3 fL6.6-10.1FSelect Medical Specialty Hospital - [facility] CtrPlatelets Auto (Bld) [#/Vol]on 25-39-7340Cdizrwghp (Bld) [#/Vol]182 10*3/xX442-082MgxhbpmlcCleveland Clinic [facility] Hospital CtrRBC Auto (Bld) [#/Vol]on 51-09-1348JAW (Bld) [#/Vol]4.44 10*6/uL3.90-5.60[facility] CtrBody fluid albumin measurement (mass/volume)on 26-46-6701Fcuevlu (Body fld) [Mass/Vol]4.3 g/dL3.2-5.5FSelect Medical Specialty Hospital - [facility] CtrCholesterol [Mass/volume] in Serum or Plasmaon 09-13-2020 Cholesterol [Mass/Vol]219 mg/rZ743-035DnfwfsnxeCleveland Clinic Luther[facility] Hospital CtrComment on above:Chol less than 200 mg/dl low riskChol 201-239 mg/dl borderline riskChol 240 mg/dl and greater high riskCholesterol in LDL Calc [Mass/Vol]on 09-13-2020 Cholesterol in LDL [Mass/Vol]149 mg/dL0-100[facility] CtrComment on above:LDL ATP III CLASSIFICATIONLDL less than 100 mg/dL OptimalLDL 100-129 mg/dL Near or above pvteycpONB594-324 mg/dL Borderline highLDL 160-189 mg/dL HighLDL greater than 189 mg/dL Very highCholesterol in VLDL Calc [Mass/Vol]on 13-79-7929Nfqlwvpzfyw in VLDL [Mass/Vol]28 mg/dLCleveland Clinic Lutheran Hospital Ctr Creatinine and Glomerular filtration rate.predicted panel (S/P/Bld)on 09-13-2020 Creatinine [Mass/Vol]0.89 mg/dL0.64-1.27[facility] CtrGFR/1.73 sq M.predicted among non-blacks MDRD (S/P/Bld) [Vol rate/Area]on 09-13-2020 GFR/1.73 sq M predicted among non-blacks MDRD (S/P/Bld) [Vol rate/Area]> 60 mL/MinCleveland Clinic Lutheran Hospital CtrGlobulin Calc (S) [Mass/Vol]on 09-13-2020 Globulin (S) [Mass/Vol]2.0 g/dLCleveland Clinic Lutheran Hospital CtrNo Panel Informationon 50-92-9870Aiwnebulw GFR ()> 60 mL/MinCleveland Clinic Lutheran Hospital CtrComment on above:GFR estimated reference range: According to KDOQI guidelines, <60 ml/min/1.73m2 is sufficient todiagnose a patient with chronic kidney disease.Otheron 18-80-1037DUF/1.73 sq M.predicted MDRD (S/P/Bld) [Vol rate/Area]> 60 mL/MinCleveland Clinic Lutheran Hospital CtrComment on above:GFR estimated reference range: According to KDOQI guidelines, <60 ml/min/1.73m2 is sufficient todiagnose a patient with chronic kidney disease.Pharmacy Creatinine Clearance (ChemN/[facility] CtrProstate Specific Antigen Screen 0.480 ng/mL0.000-4.000[facility] CtrProtein [Mass/volume] in Serum or Plasmaon 18-57-0240Uxmnifz [Mass/Vol]6.3 g/dL6.1-7.9[facility] DusWQHU-KrP-1 (COVID-19) IgG Ab [Presence] in Serum or Plasma by Immunoassayon 32-57-7477COVD-CoV-2 (COVID-19) IgG Ab [Presence] in Serum or Plasma by ImmunoassayPositiveNegativeSt. Rita'S HospitalComment on above:Results suggest recent or prior infection with SARS-CoV-2.Correlation with epidemiologic risk factors and otherclinical and laboratory findings is recommended. Serologicresults should not be used as the sole basis to diagnose orexclude recent SARS-CoV-2 infection. False positive resultsinfrequentlyoccur due to prior infection with other humanCoronaviruses.This assay was performed using the [employer](R)SARS-CoV-2 S1/S2 IgG assay.This assay detects antibodies against SARS-CoV-2 spikeprotein including the receptor binding domain (RBD).Performed at: [address] [id number] Director: Florencio Wu PhD, Phone: [phone]-NdM-6 (COVID-19) IgG IA QlPositiveNegMercy Health St. [facility] CtrComment on above:Results suggest recent or prior infection with SARS-CoV-2.Correlation with epidemiologic risk factors and otherclinical and laboratory findings is recommended. Serologicresults should not be used as the sole basis to diagnose orexclude recent SARS-CoV-2 infection. False positive resultsinfrequentlyoccur due to prior infection with other humanCoronaviruses.This assay was performed using the [employer](R)SARS-CoV-2 S1/S2 IgG assay.This assay detects antibodies against SARS-CoV-2 spikeprotein including the receptor binding domain (RBD).Performed at: [address] [id number] Director: Florencio Wu PhD, Phone: [phone] or plasma alanine aminotransferase measurement without P-5'-P (enzymatic activion 27-38-0900WPC No additional P-5'-P [Catalytic activity/Vol]19 U/S40-78TbmhleoytCleveland Clinic Luther[facility] Hospital CtrSerum or plasma albumin/globulin mass ratioon 09-13-2020 Albumin/Globulin [Mass ratio]2.2 {ratio}[facility] CtrSerum or plasma alkaline phosphatase measurement (enzymatic activity/volume)on 09-13-2020 ALP [Catalytic activity/Vol]53 U/N38-94VhvjzzvmbCleveland Clinic Luther[facility] Hospital CtrSerum or plasma aspartate aminotransferase measurement (enzymatic activity/volume)on 53-34-9207GZP [Catalytic activity/Vol]22 U/I24-37WiwcqvlsySt. Rita'S Hospital Serum or plasma calcium measurement (mass/volume)on 54-18-7379Auilmsm [Mass/Vol] 9.1 mg/dL8.2-10.2FSelect Medical Specialty Hospital [facility] CtrSerum or plasma chloride measurement (moles/volume)on 17-92-7058Boeiomoj [Moles/Vol]105 mmol/L95-114 [facility] CtrSerum or plasma glucose measurement (mass/volume) on 92-21-2747Ilvriny [Mass/Vol]97 mg/rJ23-867FwmbbqetzSt. Rita'S Hospital Comment on above:ADA recommended reference rangeRandom Glucose Reference Range is dependent on time and content of last meal. Glucose of more than 200 mg/dL in a nonstressed, ambulatory subject supports the diagnosisof Diabetes Mellitus. Serum or plasma high density lipoprotein (HDL) cholesterol measurementon 91-69-7296Peickvaqdqn in HDL [Mass/Vol]41 mg/cM93-18RcvnuwjuhCleveland Clinic Luther[facility] Hospital CtrComment on above:HDL CHOL ATP-III CLASSIFICATION Cardiovascular RiskHDL > or equal to 60 mg/dL LOWHDL < 40 mg/dL HIGHSerum or plasma potassium measurement (moles/volume)on 36-98-7310Zcoxumigc [Moles/Vol]4.2 mmol/L3.5-5.1FSelect Medical Specialty Hospital - [facility] CtrSerum or plasma sodium measurement (moles/volume)on 17-35-3517Bmmrkl [Moles/Vol]135 mmol/J324-067SjbmwrykmCleveland Clinic Luther[facility] Hospital CtrSerum or plasma thyroid stimulating hormone (TSH) measurement by high sensitivity met on 06-48-8685WAT Qn1.66 u[iU]/mL0.45-5.33[facility] CtrSerum or plasma total bilirubin measurement (mass/volume)on 08-87-5249Lxylhxzin [Mass/Vol]0.9 mg/dL0.3-1.2FSelect Medical Specialty Hospital - [facility] CtrSerum or plasma total carbon dioxide measurement (moles/volume)on 40-00-7107HH5 [Moles/Vol]22.5 mmol/L 22.0-30.0[facility] CtrSerum or plasma total cholesterol/high density lipoprotein (HDL) cholesterol mass gia 09-13-2020 Cholesterol.total/Cholesterol in HDL [Mass ratio]5.3 {ratio}[facility] CtrSerum or plasma urea nitrogen measurement (mass/volume)on 09-13-2020 Urea nitrogen [Mass/Vol]12 mg/dL9-23[facility] CtrTSH DL <= 0.005 mIU/L Qnon 63-72-6601EHE Qn1.66 m[IU]/L0.45-5.33[facility] CtrTriglyceride [Mass/volume] in Serum or Plasmaon 19-51-1335Hzlaiuzluxju [Mass/Vol]144 mg/vM99-920CuzzxgmbaCleveland Clinic Luther[facility] Hospital CtrComment on above:TRIG ATP III CLASSIFICATIONTRIG less than 150 mg/dL NormalTRIG 150-199 mg/dL Borderline highTRIG 200-500 mg/dL High TRIG greater than 500 mg/dL Very highStandard traceable to the Center for Disease Conrtrol and Prevention (CDC) test method. History and Physicalon 59-87-4534Hvzwdkt and PhysicalHOSPITAL REGULATIONS: ALL Positive Important Negative [...] eye. Coleen Grajeda M.D. aek Dictated: 04/14/2019 #[id number] Typed 04/14/2019 #[id number] cc: Coleen Grajeda M.D.[facility] - ColumbusComment on above:Result Comment: Electronically Signed By: Coleen Grajeda MD.br\Date and Time Signed: 04/18/19 09:54 EDTOperative Reporton 03-72-9459Xjfwohmfw ReportDate of Surgery: 04/14/2019 SURGEON: Coleen Grajeda [...] and inferior fornices of the eye. A Digital Reefan manometer was set on the eye at [...] condition. Coleen Grajeda M.D. 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 Name: SHANTEL MELENDEZ/Sex: 1960 Male Med Rec #: [id number] Physician: Coleen Grajeda MD Financial #: [id number] Pt. Type: A Room/Bed: [facility]/ Admit/Disch: 04/14/19 12:59:00 - 04/14/19 16:00:00 Institution: [...] Performed Surgeon - Primary Scrub - Primary Tablet Making Machine Operator Helper - Primary Time In 04/14/19 14:55:00 04/14/19 [...] VERNON, Pauly GOODEN, RN, Tierra Role Performed Tablet Making Machine Operator Helper - Primary Tablet Making Machine Operator Helper - Relief Time In 04/14/19 14:55:00 04/14/19 [...] Unable to Visualize, Outcomes Met? Yes Warm, [place], Dry Last Modified By: Johnathon Karimi RN [...] RN Patient Status Stable Skin. Condition Warm, [place], Dry Description unchanged Airway Maintenance Oxygen in [...] LENS(Left) Implant Identification FT Description MONTY IOL [id number] SOFPORT Serial Number [id number] SIZE 21.0 [[id number] 21.0][F] Lot Number [id number] Field Rep FT-[employer]CH [employer]OM[employer] Catalog ?# [id number] 21.0[F] Expiration Date 10/16/23 Unique Device [id number] Identifier (BERNARD) Usage Data FT Implant Site [...] RN 04/14/19 15:16 Asya Alves CST 04/15/19 14:44NoJoint Township District Memorial HospitalInpatient Patient Summaryon 65-49-6247Zjoysnvng [facility] SummaryGalion [facility] Clinical Discharge Instructions PERSON INFORMATION Name: SHANTEL MELENDEZ PHYSICIANS Admitting Physician: Coleen Grajeda MD Attending Physician: Coleen Grajeda MD PCP: JILLIAN BARONE DO Discharge Diagnosis: Cataract Comment: PATIENT EDUCATION INFORMATION Instructions: Medication Leaflets: Follow up: With: Address: When: Coleen Grajeda [address] [place] [address] [facility] () Comments: Call physician if symptoms worsen Keep scheduled appointment MEDICATION LIST Comment:[facility] OR PACU II Recordon 69-18-2868Ntqz OR PACU II RecordPACU Phase II Document Type FT Summary Primary Physician: Coleen Grajeda MD Finalized Date/Time: 04/14/19 17:54:42 Pt. Name: SHANTEL MELENDEZ D.O.B./Sex: 1960 Male Med Rec #: [id number] Physician: Coleen Grajeda MD Financial #: [id number] Pt. Type: A Room/Bed: [facility]2/01 Admit/Disch: 04/14/19 12:59:23 - Institution: Case Times [...] Signatures Signed By: Lizeth Rush RN 04/14/19 17:54NoalSumma HealthMain OR Preoperative Recordon 65-38-0486Nigo OR Preoperative RecordPreOp Document Type FT Summary Primary Physician: Coleen Grajeda MD Finalized Date/Time: 04/14/19 15:14:03 Pt. Name: SHANTEL MELENDEZ Fatimah /Sex: 1960 Male Med Rec #: [id number] Physician: Coleen Grajeda MD Financial #: [id number] Pt. Type: A Room/Bed: [place] [address] Admit/Disch: 04/14/19 12:59:23 - Institution: Case Times [...] Signatures Signed By: Johnathon Karimi RN 04/14/19 15:14NoJoint Township District Memorial HospitalPatient Education - Texton 50-85-7576[employer] Education - TextSelect Medical Specialty [facility] Vital Signs Date TimeVital SignValuePerforming CjhngxdgmIuabuvvm01-76-1708 13:58-0500Body yfpern205.72 cmBreaidan Wellpartner DO Work Phone: [facility]11-10-2025 13:58-0500 Body mass index (BMI) [Ratio]24.5 kg/n1Kfhit Cubbys DO Work Phone: [facility]11-10-2025 13:58-0500 Body .02 kgBrett Cubbys DO Work Phone: [facility]11-10-2025 13:58-0500 Diastolic blood lnmtfdun00 mm[Hg]Griselda Andreas DO Work Phone: [facility]11-10-2025 13:58-0500 Heart rate76 /minBrett Andreas DO Work Phone: [phone]11-10-2025 13:58-0500 Respiratory rate18 /minBrett Kuns DO Work Phone: [phone]11-10-2025 13:58-0500 SaO2% (BldA) [Mass fraction]98 %Griselda Kuns DO Work Phone: [phone]11-10-2025 13:58-0500 Systolic blood ebiwpgxj065 mm[Hg]Griselda Kuns DO Work Phone: [phone] [place], [place] 0525410-15-2025 14:04-0400 Body urlkpk205.72 cmBrett Kuns DO Work Phone: [phone] [place], [place] 0525410-15-2025 14:04-0400 Body mass index (BMI) [Ratio]24.1 kg/x2Jiwdy Kuns DO Work Phone: [phone] [place], [place] 0525410-15-2025 14:04-0400 Body pvcwgo36.12 kgBrett Kuns DO Work Phone: [phone] [place], [place] 0525410-15-2025 14:04-0400 Diastolic blood kshffgod93 mm[Hg]Griselda Kuns DO Work Phone: [phone] [place], [place] 0525410-15-2025 14:04-0400 Heart amxp025 /minBrett Kuns DO Work Phone: [phone] [place], [place] 6902910-15-2025 14:04-0400 Respiratory rate16 /minBrett Kuns DO Work Phone: [phone] [place], [place] 6902910-15-2025 14:04-0400 SaO2% (BldA) [Mass fraction]99 %Griselda Kuns DO Work Phone: 1(630)[address]10-15-2025 14:04-0400 Systolic blood fflxevpo022 mm[Hg]Griselda Kuns DO Work Phone: 1(348)[address] [place], [place] 0525409-04-2025 11:25-0400 Body .72 cmBrett Kuns DO Work Phone: 1(773)[address]09-04-2025 11:25-0400 Body mass index (BMI) [Ratio]24.1 kg/e4Rxmyr Kuns DO Work Phone: 1(515)[address] [place], [place] 0525409-04-2025 11:25-0400 Body eabmsy69.12 kgBrett Kuns DO Work Phone: 1(189)[address] [place], [place] 0525409-04-2025 11:25-0400 Diastolic blood uqlxfvww91 mm[Hg]Griselda Kuns DO Work Phone: 1(207)[address] [place], [place] 0525409-04-2025 11:25-0400 Heart xizd652 /minBrett Andreas DO Work Phone: 1(511)[address] [place], [place] 0525409-04-2025 11:25-0400 Respiratory rate16 /minBreaidan Eckerts DO Work Phone: 1(665)[address] [place], [place] 0525409-04-2025 11:25-0400 SaO2% (BldA) [Mass fraction]98 %Griseldaaidan Eckerts DO Work Phone: 1(599)[address] [place], [place] 0525409-04-2025 11:25-0400 Systolic blood mm[Hg]Griselda Kuns DO Work Phone: 1(608)[address] [place], [place] 0525408-20-2025 14:41-0400 Body mass index (BMI) [Ratio]24.18 kg/t5EvkncmrOziel Cadena MD Work Phone: [facility]Jthilswpkq30[facility]54-1554 14:41-0400Body ggywxt79.12 kgOziel Cadena MD Work Phone: [facility] HospitalNblatbuiri85-45-2688 14:41-0400Diastolic blood iytdgdeq29 mm[Hg]Oziel Cadena MD Work Phone: [facility] HospitalXjwvvalyto21-81-5502 14:41-0400Heart blxs931 /min Oziel Cadena MD Work Phone: 1(440)[address] [place], [place] 9914108-20-2025 14:41-0400Systolic blood ltjpctee950 mm[Hg]Oziel Cadena MD Work Phone: 1([phone] HospitalWhpiycldge15-03-6233 15:20-0400Body .72 cmBrett Kuns DO Work Phone: [facility]07-28-2025 15:20-0400 Body mass index (BMI) [Ratio]27 kg/t7Kbwtm Kuns DO Work Phone: [facility]07-28-2025 15:20-0400 Body dfftos80.73 kgBrett Kuns DO Work Phone: [phone]([phone]07-28-2025 15:20-0400 Diastolic blood mm[Hg]Griselda Kuns DO Work Phone: [facility]07-28-2025 15:20-0400 Heart rate76 /minBrett Kuns DO Work Phone: 1([phone]07-28-2025 15:20-0400 Systolic blood snpmaxra106 mm[Hg]Griselda Kuns DO Work Phone: [phone]07-09-2025 14:12-0400 Body mass index (BMI) [Ratio]25.09 kg/f9CcniaasOziel Cadena MD Work Phone: 1(255)[phone] HospitalMviozxrezm90-06-7724 14:12-0400Body oneazg08.84 kgOziel Cadena MD Work Phone: 1([phone] HospitalYgapebtybv38-28-2486 14:12-0400Diastolic blood ewrdjgeo60 mm[Hg]Oziel Cadena MD Work Phone: 1(894)4-[address] [place], [place] [address]Ioygebxumx10-86-4592 14:12-0400Heart rate85 /min Oziel Cadena MD Work Phone: 1(889)9-0576[facility] HospitalYtwzwdoklg85-38-9376 14:12-0400Systolic blood opwqjtiv066 mm[Hg]Oziel Cadena MD Work Phone: [facility] HospitalXkulmbbzyz83-27-3836 14:04-0400Body pdlsyj608.72 cmBrett Kuns DO Work Phone: 1([phone]06-04-2025 14:04-0400 Body ayajtrhzrxb331.7 [degF]Griselda Kuns DO Work Phone: 1(244)499-[address] [place], [place] 6902906-04-2025 14:04-0400 Heart rate96 /minBrett Kuns DO Work Phone: 1(933)[address]06-04-2025 14:04-0400 Respiratory rate18 /minBrett Kuns DO Work Phone: 1(033)[address]06-04-2025 14:04-0400 SaO2% (BldA) [Mass fraction]99 %Griselda Kuns DO Work Phone: 1(876)[address]06-02-2025 14:03-0400 Body mkfigb685.72 cmBrett Kuns DO Work Phone: 1(752)6-[address] [place], [place] 6902906-02-2025 14:03-0400 Body mass index (BMI) [Ratio]26.3 kg/w5Rcvna Kuns DO Work Phone: 1(085)7-[address] [place], [place] 6902906-02-2025 14:03-0400 Body .47 kgBrett Kuns DO Work Phone: 1(994)8-[address] [place], [place] 6902906-02-2025 14:03-0400 Diastolic blood ogxviacv55 mm[Hg]Griselda Kuns DO Work Phone: 1(763)0-[address] [place], [place] 6902906-02-2025 14:03-0400 Heart rrdn745 /minBrett Kuns DO Work Phone: 1(669)8-[address] [place], [place] 6902906-02-2025 14:03-0400 Systolic blood wvdsbmiw615 mm[Hg]Griselda Kuns DO Work Phone: 1(470)[address]05-21-2025 10:30-0400 Diastolic blood fcihwccm16 mm[Hg]Grisedla Kuns DO Work Phone: [facility]05-21-2025 10:30-0400 Heart rate71 /minBrett Kuns DO Work Phone: 1(828)[address]05-21-2025 10:30-0400 Respiratory rate20 /minBrett Kuns DO Work Phone: 1(906)0-[address] [place], [place] 6902905-21-2025 10:30-0400 SaO2% (BldA) [Mass fraction]98 %Griselda Kuns DO Work Phone: 1(466)[address]05-21-2025 10:30-0400 Systolic blood tsgadiaq872 mm[Hg]Griselda Kuns DO Work Phone: 1(222)[address] [place], [place] 0525405-21-2025 07:12-0400 Body ssouru530.72 cmBrett Kuns DO Work Phone: 1(071)[address] [place], [place] 0525405-21-2025 07:12-0400 Body juvorw62.11 kgBrett Kuns DO Work Phone: 1(751)[address]05-12-2025 09:57-0400 Body hsufrq680.72 cmBrett Kuns DO Work Phone: 1(619)[address] [place], [place] 0525405-12-2025 09:57-0400 Body mass index (BMI) [Ratio]26.4 kg/j1Wbwjp Kuns DO Work Phone: 1(790)[address]05-12-2025 09:57-0400 Body yqtppj07.92 kgBrett Kuns DO Work Phone: 1(914)[address]05-12-2025 09:57-0400 Diastolic blood snuepyjt65 mm[Hg]Griselda Kuns DO Work Phone: 1(004)[address]05-12-2025 09:57-0400 Heart rate64 /minBrett Kuns DO Work Phone: 1(687)7-[address] [place], [place] 6902905-12-2025 09:57-0400 Respiratory rate18 /minBrett Kuns DO Work Phone: [facility]05-12-2025 09:57-0400 SaO2% (BldA) [Mass fraction]98 %Griselda Kuns DO Work Phone: [facility]05-12-2025 09:57-0400 Systolic blood jnufjxon004 mm[Hg]Griselda Kuns DO Work Phone: [facility]04-28-2025 09:06-0400 Body .7 cmDoretha Harris MD Work Phone: [phone])750-[address] [place], [place] 5823904-28-2025 09:06-0400 Body mass index (BMI) [Ratio]25.54 kg/r3IftlmpnDoretha Harris MD Work Phone: 1216)[address]04-28-2025 09:06-0400 Body yqkrwr32.2 kgDoretha Harris MD Work Phone: [phone])389-[address] [place], [place] 5823904-28-2025 09:06-0400 Diastolic blood sjizkdpw83 mm[Hg]Doretha Harris MD Work Phone: 1216)845-[address] [place], [place] 5823904-28-2025 09:06-0400 Heart rate75 /minDoretha Harris MD Work Phone: 1216)013-[address] [place], [place] 5823904-28-2025 09:06-0400 Systolic blood synewlre783 mm[Hg]Doretha Harris MD Work Phone: [phone])990-[address] [place], [place] 5823904-25-2025 13:05-0400 Body ncofhn804.72 cmBrett Kuns DO Work Phone: [facility]04-25-2025 13:05-0400 Body mass index (BMI) [Ratio]25.4 kg/d3Tkhjz Kuns DO Work Phone: [facility]04-25-2025 13:05-0400 Body .74 kgBrett Kuns DO Work Phone: 1(788)[phone]04-25-2025 13:05-0400 Diastolic blood mm[Hg]Griselda Kuns DO Work Phone: 1(071)[address]04-25-2025 13:05-0400 Heart rate76 /minBrett Kuns DO Work Phone: 1(876)[address]04-25-2025 13:05-0400 Systolic blood niqwaqwh96 mm[Hg]Griselda Kuns DO Work Phone: 1(270)[address]04-21-2025 18:42-0400 Diastolic blood vnoinobe46 mm[Hg]Griselda Kuns DO Work Phone: 1(774)[address] [place], [place] 0525404-21-2025 18:42-0400 Heart rate80 /minBrett Kuns DO Work Phone: 1(393)[address] [place], [place] 0525404-21-2025 18:42-0400 Respiratory rate16 /minBrett Kuns DO Work Phone: 1(536)[address]04-21-2025 18:42-0400 SaO2% (BldA) [Mass fraction]98 %Griselda Kuns DO Work Phone: 1(741)[address]04-21-2025 18:42-0400 Systolic blood ilpizvsg349 mm[Hg]Griselda Kuns DO Work Phone: 1(125)9-[address] [place], [place] 6902904-21-2025 14:04-0400 Body .72 cmBrett Kuns DO Work Phone: 1(459)9-[address] [place], [place] 6902904-21-2025 14:04-0400 Body qelvumzqsni02.2 [degF]Griselda Kuns DO Work Phone: 1(982)[address]04-21-2025 14:04-0400 Body azephg79.9 kgBrett Kuns DO Work Phone: 1(906)[address]04-05-2025 14:00-0400 Heart rate88 /minBrett Andreas DO Work Phone: [facility]04-05-2025 14:00-0400 Respiratory rate20 /minBrett Andreas DO Work Phone: 1(867)2-[address] [place], [place] 6902904-05-2025 14:00-0400 SaO2% (BldA) [Mass fraction]93 %Griselda Andreas DO Work Phone: 1(177)0-[address] [place], [place] 6902904-05-2025 13:48-0400 Body cxlyxqmuiee54.4 [degF]Griselda Eckerts DO Work Phone: 1(919)[address] [place], [place] 0525404-05-2025 13:48-0400 Diastolic blood toebtyoc16 mm[Hg]Griselda Kuns DO Work Phone: 1(605)[address]04-05-2025 13:48-0400 Systolic blood emiqvogt722 mm[Hg]Griselda Andreas DO Work Phone: 1(937)[address] [place], [place] 0525404-05-2025 10:55-0400 Body .72 cmKatytt Andreas DO Work Phone: 1(079)[address] [place], [place] 0525404-05-2025 10:55-0400 Body dcunmq69.9 kgKatytt Andreas DO Work Phone: 1(459)[address] [place], [place] 0525403-27-2025 10:46-0400 Body mass index (BMI) [Ratio]27.06 kg/t2ZfmrofiOziel Cadena MD Work Phone: [facility] HospitalKljqsihtgf84-93-4502 10:46-0400Body wuiwlt71.74 kgOziel Cadena MD Work Phone: [facility] HospitalZkheikemwj96-02-7259 10:46-0400Diastolic blood oewlcwvu64 mm[Hg]Oziel Cadena MD Work Phone: [facility] HospitalOzaioqovwq34-80-7050 10:46-0400Heart rate61 /min Oziel Cadena MD Work Phone: 3(543)[phone] HospitalXhppcjmtyh77-16-3309 10:46-0400Systolic blood lakgktju733 mm[Hg]Oziel Cadena MD Work Phone: [facility] HospitalAnpykfzhyf31-80-9983 09:22-0400Body oxfeft574.72 cmBrett Kuns DO Work Phone: 1(532)[address] [place], [place] 0525403-27-2025 09:22-0400 Body mass index (BMI) [Ratio]28.1 kg/x8Wsbmt Kuns DO Work Phone: 1(640)[address]03-27-2025 09:22-0400 Body .6 [degF]Griselda Kuns DO Work Phone: 1(694)[address] [place], [place] 0525403-27-2025 09:22-0400 Body yoqbel33 kgBrett Kuns DO Work Phone: 1(270)[address] [place], [place] 0525403-27-2025 09:22-0400 Diastolic blood yvygeycc20 mm[Hg]Griselda Kuns DO Work Phone: 1(597)[address]03-27-2025 09:22-0400 Heart rate78 /minBrett Kuns DO Work Phone: 1(003)[address]03-27-2025 09:22-0400 Respiratory rate16 /minBrett Kuns DO Work Phone: 1(780)[address] [place], [place] 0525403-27-2025 09:22-0400 SaO2% (BldA) [Mass fraction]98 %Griselda Kuns DO Work Phone: 1(510)6-[address] [place], [place] 6902903-27-2025 09:22-0400 Systolic blood izognnrr869 mm[Hg]Griselda Kuns DO Work Phone: 1(859)[address]02-13-2025 13:26-0500 Body mass index (BMI) [Ratio]27.37 kg/i0JjbaidzOziel Cadena MD Work Phone: noSS[facility] RehabTeekxuymql50-29-2751 13:26-0500Body qcpilr65.65 kgOziel Cadena MD Work Phone: [facility] HospitalHqpfdpufjf33-72-9434 13:26-0500Diastolic blood mnqmotik53 mm[Hg]Oziel Cadena MD Work Phone: [facility] HospitalNtvpqyyzkg30-89-9341 13:26-0500Heart rate81 /min zOiel Cadena MD Work Phone: [facility] HospitalPcrdckiqij15-48-2790 13:26-0500Systolic blood imbwufym834 mm[Hg]Oziel Cadena MD Work Phone: [facility] HospitalHvuwpihbui16-78-0435 09:54-0500Body nmnefs360.72 cmBrett Kuns DO Work Phone: 1(185)[address]01-16-2025 09:54-0500 Body mass index (BMI) [Ratio]28.4 kg/y7Kcpli Kuns DO Work Phone: 1(825)[address]01-16-2025 09:54-0500 Body hwspog04.82 kgBrett Kuns DO Work Phone: 1(536)[address]01-16-2025 09:54-0500 Diastolic blood cqobotbz29 mm[Hg]Griselda Kuns DO Work Phone: 1(172)[address]01-16-2025 09:54-0500 Heart rate81 /minBrett Kuns DO Work Phone: 1(828)7-[address] [place], [place] 6902901-16-2025 09:54-0500 Respiratory rate18 /minBrett Kuns DO Work Phone: 1(254)0-[address] [place], [place] 6902901-16-2025 09:54-0500 SaO2% (BldA) [Mass fraction]98 %Griselda Kuns DO Work Phone: 1(987)[address]01-16-2025 09:54-0500 Systolic blood uedktbqe873 mm[Hg]Griselda Kuns DO Work Phone: 1(748)[address]01-15-2025 14:18-0500 Body mass index (BMI) [Ratio]28.28 kg/m3MradrjbOziel Cadena MD Work Phone: 1(797)[address]01-15-2025 14:18-0500Body fcxvuc87.37 kgOziel Cadena MD Work Phone: 1(203)[address] [place], [place] 9914101-15-2025 14:18-0500Diastolic blood mjrkuyrt10 mm[Hg]Oziel Cadena MD Work Phone: 1(865)[address] [place], [place] 9914101-15-2025 14:18-0500Heart rate86 /min Oziel Cadena MD Work Phone: 1(427)[address] [place], [place] 9914101-15-2025 14:18-0500Systolic blood tovynkyh648 mm[Hg]Oziel Cadena MD Work Phone: 1(975)[address] [place], [place] 9914101-13-2025 08:56-0500Body lwajya986.7 cmDoretha Harris MD Work Phone: 1(524)[address] [place], [place] 6750501-13-2025 08:56-0500 Body mass index (BMI) [Ratio]27.37 kg/h5HlelacrDoretha Harris MD Work Phone: 1(297)[address] [place], [place] 6750501-13-2025 08:56-0500 Body hllmdi43.65 kgDoretha Harris MD Work Phone: 1(509)[address] [place], [place] 6750501-13-2025 08:56-0500 Diastolic blood qvavhrru07 mm[Hg]Doretha Harris MD Work Phone: 1(703)[address] [place], [place] 6750501-13-2025 08:56-0500 Heart rate75 /minDoretha Harris MD Work Phone: 1(731)[address] [place], [place] 6750501-13-2025 08:56-0500 Systolic blood wybiwihb726 mm[Hg]Doretha Harris MD Work Phone: 1(343)[address] [place], [place] 6750512-04-2024 14:04-0500 Body ctexqr863.7 cmOziel Cadena MD Work Phone: 1(665)[address] [place], [place] 9914112-04-2024 14:04-0500Body mass index (BMI) [Ratio]26.46 kg/u5KonupgnOziel Cadena MD Work Phone: [facility] HospitalHyccbglroo15-11-5956 14:04-0500Body reanha05.93 kgOziel Cadena MD Work Phone: [facility] HospitalBfpotyfkrh31-07-3663 14:04-0500Diastolic blood yuhhlsuu52 mm[Hg]Oziel Cadena MD Work Phone: [facility] HospitalNmapjfdema67-93-9271 14:04-0500Systolic blood vybvvpjz241 mm[Hg]Oziel Cadena MD Work Phone: [facility] HospitalQjeanufyww04-52-9366 09:48-0500Body wilfxl551.72 cm[facility]11-11-2024 09:48-0500Body mass index (BMI) [Ratio]27 kg/i5XgsxyujufOhiohealth [facility]ide [facility] Hospital11-11-2024 09:48-0500Body weight 80.73 kgOhiohealth [facility]11-11-2024 09:48-0500Diastolic blood qqgdxyzp85 mm[Hg][facility]11-11-2024 09:48-0500Heart rate61 /[facility]11-11-2024 09:48-0500Respiratory rate18 /[facility]11-11-2024 09:48-9124GpF1% (BldA) [Mass fraction]96 %[facility]11-11-2024 09:48-0500 Systolic blood gdpfdjbe610 mm[Hg][facility]10-24-2024 12:11-0400Body udupmawrfhc01.1 [degF]Doretha Harris MD Work Phone: [facility]10-24-2024 12:11-0400 Diastolic blood mm[Hg]Doretha Harris MD Work Phone: [facility]10-24-2024 12:11-0400 Heart rate82 /Luanne Harris MD Work Phone: 1(216)[address] [place], [place] 3214110-24-2024 12:11-0400 Respiratory rate17 /minDoretha Harris MD Work Phone: 1(216)[address] [place], [place] 3214110-24-2024 12:11-0400 Systolic blood rwnkcqao277 mm[Hg]Doretha Harris MD Work Phone: 1(216)[address] [place], [place] 3214110-24-2024 09:20-0400 SaO2% (BldA) [Mass fraction]93 %Doretha Harris MD Work Phone: 1(216)[address] [place], [place] 3214110-23-2024 15:07-0400 Body hneubhsdpag49Irxvszu Zhou MD Work Phone: 1(216)[address] [place], [place] 3214110-23-2024 15:07-0400 SaO2% (BldA) [Mass fraction]100 %Doretha Harris MD Work Phone: 1(216)[address] [place], [place] 3214110-23-2024 14:47-0400 Body fpyknewozef11.0 degrees CelsiusPremier Health Upper Valley Medical CenterComment on above:Performed By: #### [id number] #### TITUS Mercado ([id number]) [facility] ([facility]) [address] [place] [address]-23-2024 14:47-6179XgX1% (BldA) [Mass fraction]100 %SHIMON Kindred HealthcareComment on above:Performed By: #### [id number] #### TITUS Mercado ([id number]) [facility] ([facility]) [address] [place], [place] 3508010-23-2024 12:11-0400Body pvuynm471.7 cmDoretha Harris MD Work Phone: 1(216)[address] [place], [place] 3214110-23-2024 12:11-0400 Body mass index (BMI) [Ratio]27.12 kg/z3YakirfsDoretha Harris MD Work Phone: 1(216)[address] [place], [place] 3214110-23-2024 12:11-0400 Body jiqsqv41.9 kgDoretha Harris MD Work Phone: [facility]10-15-2024 10:47-0400 Body hgeinz451.72 cmOhio[facility]10-15-2024 10:47-0400Body mass index (BMI) [Ratio]27.2 kg/m7CiagzkxhmOhiohealth [facility]ide [facility] Hospital10-15-2024 10:47-0400Body pnuhgk76.19 kgOhiohealth [facility]ide [facility] Hospital10-15-2024 10:47-0400Diastolic blood jewfmhnx66 mm[Hg][facility] 04-01-2024 10:47-0400Heart rate50 /[facility] 04-01-2024 10:47-0400Respiratory rate16 /[facility] 04-01-2024 10:47-6538ItO0% (BldA) [Mass fraction]99 %[facility]10-15-2024 10:47-0400Systolic blood keqaudvf091 mm[Hg][facility]08-15-2024 10:24-0400Body .72 cmOhio[facility]08-15-2024 10:24-0400Body mass index (BMI) [Ratio]27.3 kg/m2 [facility]08-15-2024 10:24-0400Body tjptci29.64 kg [facility]08-15-2024 10:24-0400Diastolic blood wrmoofxu65 mm[Hg][facility]08-15-2024 10:24-0400Heart rate75 /min [facility]08-15-2024 10:24-0400Respiratory rate18 /min [facility]08-15-2024 10:24-5647PwT8% (BldA) [Mass fraction]98 %[facility]08-15-2024 10:24-0400Systolic blood qmbycfvq563 mm[Hg][facility]07-18-2024 13:36-0400 Body .7 cmDoretha Harris MD Work Phone: [facility]07-18-2024 13:36-0400 Body mass index (BMI) [Ratio]27.43 kg/p4RfkqxyoDoretha Harris MD Work Phone: 1(293)336-[address] [place], [place] 5823907-18-2024 13:36-0400 Body whbtme76.83 kgDoretha Harris MD Work Phone: 1(718)327-[address] [place], [place] 5823907-18-2024 13:36-0400 Diastolic blood avhhogwt90 mm[Hg]Doretha Harris MD Work Phone: 1(880)763-[address] [place], [place] 5823907-18-2024 13:36-0400 Heart rate80 /Luanne Harris MD Work Phone: 1(033)5-[address] [place], [place] 5823907-18-2024 13:36-0400 Systolic blood mm[Hg]Doretha Harris MD Work Phone: 1(919)007-[address] [place], [place] 5823906-27-2024 10:00-0400 Body mass index (BMI) [Ratio]27.1 kg/n7BhkneqxHelder Jack MD Work Phone: 1(015)961-[facility]27[facility]06-27-2024 10:00-0400 Body pfkxsuhckdk94.5 [degF]Helder Jack MD Work Phone: 1(906)653-[facility]24[facility]06-27-2024 10:00-0400 Body .83 Mackenzie Jack MD Work Phone: [facility]06-27-2024 10:00-0400 Diastolic blood dyybvpdy88 mm[Hg]Helder Jack MD Work Phone: [facility]06-27-2024 10:00-0400 Heart rate92 /Rachel Jack MD Work Phone: [facility]06-27-2024 10:00-0400 Respiratory rate17 /Rachel Jack MD Work Phone: [facility]06-27-2024 10:00-0400 SaO2% (BldA) [Mass fraction]96 %Helder Jack MD Work Phone: [facility]06-27-2024 10:00-0400 Systolic blood kahxwltw097 mm[Hg]Helder Jack MD Work Phone: [facility]06-26-2024 13:08-0400 Body hddgzu480.7 cmRyan Milks PA-C Work Phone: [facility]06-26-2024 13:08-0400 Body mass index (BMI) [Ratio]26.91 kg/m2Ryan Milks PA-C Work Phone: 1(328)[address] [place], [place] 4223206-26-2024 13:08-0400 Body yfcxbr16.29 kgRyan Milks PA-C Work Phone: 1(212)[address] [place], [place] 4223206-26-2024 13:08-0400 Diastolic blood bwspoffy05 mm[Hg]Solomon Milks PA-C Work Phone: 7(855)[facility] [place], [place] 5021906-26-2024 13:08-0400 Heart rate91 /minRyan Milks PA-C Work Phone: 9(585)[facility] [place], [place] 5021906-26-2024 13:08-0400 Systolic blood hjylkzsi396 mm[Hg]Solomon Milks PA-C Work Phone: 1(886)[address] [place], [place] 4223206-17-2024 10:51-0400 Body dauhem237.72 cmDO Griselda Kuns Work Phone: [facility]06-17-2024 10:51-0400 Body mass index (BMI) [Ratio]26.1 kg/m2DO Griselda Kuns Work Phone: [facility]06-17-2024 10:51-0400 Body ypgipn14.01 kgDO Griselda Kuns Work Phone: [facility]06-17-2024 10:51-0400 Diastolic blood punyiqqx37 mm[Hg]DO Griseldaaidan Eckerts Work Phone: [facility]06-17-2024 10:51-0400 Heart rate97 /Gerard Krause Work Phone: [facility]06-17-2024 10:51-0400 Respiratory rate18 /Gerard Krause Work Phone: [facility]06-17-2024 10:51-0400 SaO2% (BldA) [Mass fraction]96 %DO Griselda Krause Work Phone: [facility]06-17-2024 10:51-0400 Systolic blood bjektxos207 mm[Hg]DO Griselda Krause Work Phone: [facility]05-17-2024 09:49-0400 Body .6 Pushpa Cole MD Work Phone: [facility]05-17-2024 09:49-0400Body mass index (BMI) [Ratio]27.38 kg/a8TyrobRacquel Cole MD Work Phone: [facility]05-17-2024 09:49-0400Body temperature 97.7 [degF]Racquel Cole MD Work Phone: [facility]05-17-2024 09:49-0400Body qoxacc74.7 kgRacquel Cole MD Work Phone: [facility]05-17-2024 09:49-0400Diastolic blood pyaxmktc20 mm[Hg]Racquel Cole MD Work Phone: [facility]05-17-2024 09:49-0400Heart rate72 /min Racquel Cole MD Work Phone: [facility]05-17-2024 09:49-0400Respiratory rate 16 /minRacquel Cole MD Work Phone: [facility]05-17-2024 09:49-9426KlM7% (BldA) [Mass fraction]99 %Racquel Cole MD Work Phone: [facility]05-17-2024 09:49-0400Systolic blood mm[Hg]Racquel Cole MD Work Phone: [facility]05-13-2024 10:32-0400Body .72 cmDO Griselda Kuns Work Phone: [facility]05-13-2024 10:32-0400 Body mass index (BMI) [Ratio]26.6 kg/m2DO Griselda Kuns Work Phone: [facility]05-13-2024 10:32-0400 Body zgifua16.37 kgDO Griselda Kuns Work Phone: [facility]05-13-2024 10:32-0400 Diastolic blood zvyhfppp44 mm[Hg]DO Griselda Kuns Work Phone: [facility]05-13-2024 10:32-0400 Heart rate71 /minDO Griselda Kuns Work Phone: [facility]05-13-2024 10:32-0400 Respiratory rate16 /minDO Griselda Kuns Work Phone: [facility]05-13-2024 10:32-0400 SaO2% (BldA) [Mass fraction]98 %DO Griselda Kuns Work Phone: [facility]05-13-2024 10:32-0400 Systolic blood nhjafcch273 mm[Hg]DO Griselda Kuns Work Phone: [facility]05-02-2024 09:02-0400 Diastolic blood hdduyylz43 mm[Hg]DO Griselda Kuns Work Phone: [facility]05-02-2024 09:02-0400 Systolic blood htechkrm836 mm[Hg]DO Griselda Kuns Work Phone: [facility]05-02-2024 08:58-0400 Body utotli428.72 cmDO Griselda Krause Work Phone: [facility]05-02-2024 08:58-0400 Body mass index (BMI) [Ratio]26.6 kg/m2DO Griselda Andreas Work Phone: [facility]05-02-2024 08:58-0400 Body hetizz02.37 kgDO Griselda Krause Work Phone: [facility]05-02-2024 08:58-0400 Heart rate57 /minDO Griselda Krause Work Phone: [facility]05-02-2024 08:58-0400 Respiratory rate18 /minDO Griselda Krause Work Phone: [facility]05-02-2024 08:58-0400 SaO2% (BldA) [Mass fraction]98 %DO Griselda Krause Work Phone: [facility]04-19-2024 09:37-0400 Body tlygzb629.2 cmHelder Jack MD Work Phone: [facility]04-19-2024 09:37-0400 Body mass index (BMI) [Ratio]26.25 kg/g7RwafqcsHelder Jack MD Work Phone: [facility]04-19-2024 09:37-0400 Body dijqrziosya66.3 [degF]Helder Jack MD Work Phone: [facility]04-19-2024 09:37-0400 Body ppivhh70.84 kgHelder Jack MD Work Phone: [facility]04-19-2024 09:37-0400 Diastolic blood fjdgajnx36 mm[Hg]Helder Jack MD Work Phone: [facility]04-19-2024 09:37-0400 Heart rate81 /minHelder Jack MD Work Phone: [facility]04-19-2024 09:37-0400 Respiratory rate16 /Rachel Jack MD Work Phone: [facility]04-19-2024 09:37-0400 SaO2% (BldA) [Mass fraction]99 %Helder Jack MD Work Phone: [facility]04-19-2024 09:37-0400 Systolic blood mm[Hg]Helder Jack MD Work Phone: [facility]03-20-2024 13:44-0400 Diastolic blood inmdvqcf37 mm[Hg]DO Griselda Kuns Work Phone: [facility]03-20-2024 13:44-0400 Systolic blood silyonpg951 mm[Hg]DO Griselda Kuns Work Phone: [facility]03-20-2024 13:41-0400 Body guqmll658.72 cmDO Griselda Kuns Work Phone: [facility]03-20-2024 13:41-0400 Body mass index (BMI) [Ratio]27.8 kg/m2DO Griselda Kuns Work Phone: [facility]03-20-2024 13:41-0400 Body mufpln91 kgDO Griselda Kuns Work Phone: [facility]03-20-2024 13:41-0400 Heart rate66 /minDO Griselda Kuns Work Phone: [facility]03-20-2024 13:41-0400 Respiratory rate18 /minDO Griselda Kuns Work Phone: [facility]03-20-2024 13:41-0400 SaO2% (BldA) [Mass fraction]99 %DO Griselda Kuns Work Phone: [facility]03-20-2024 11:58-0400 Body yshzkm262.72 cmDO Grieslda Kuns Work Phone: [facility]03-20-2024 11:58-0400 Body mass index (BMI) [Ratio]27.3 kg/m2DO Griselda Kuns Work Phone: [facility]03-20-2024 11:58-0400 Body eobljrqqdto76.8 [degF]DO Griselda Kuns Work Phone: [facility]03-20-2024 11:58-0400 Body .64 kgDO Griselda Kuns Work Phone: [facility]03-20-2024 11:58-0400 Diastolic blood mm[Hg]DO Griselda Kuns Work Phone: [facility]03-20-2024 11:58-0400 Heart rate71 /minDO Griselda Kuns Work Phone: [facility]03-20-2024 11:58-0400 SaO2% (BldA) [Mass fraction]96 %DO Griselda Kuns Work Phone: [facility]03-20-2024 11:58-0400 Systolic blood hbyvskdc125 mm[Hg]DO Griselda Kuns Work Phone: [facility]02-28-2024 15:41-0500 Body wabkiz923.72 cmDO Griselda Kuns Work Phone: [facility]02-28-2024 15:41-0500 Body mass index (BMI) [Ratio]28.1 kg/m2DO Griselda Kuns Work Phone: [facility]02-28-2024 15:41-0500 Body tlzeey47.08 kgDO Griselda Kuns Work Phone: [facility]02-28-2024 15:41-0500 Diastolic blood yyvoxvzz51 mm[Hg]DO Griselda Kuns Work Phone: [facility]02-28-2024 15:41-0500 Heart rate62 /minDO Griselda Kuns Work Phone: [facility]02-28-2024 15:41-0500 Respiratory rate18 /minDO Griselda Kuns Work Phone: [facility]02-28-2024 15:41-0500 SaO2% (BldA) [Mass fraction]99 %DO Griselda Kuns Work Phone: [facility]02-28-2024 15:41-0500 Systolic blood gduzkmgx437 mm[Hg]DO Griselda Kuns Work Phone: [facility]02-15-2024 13:11-0500 Body fbemzj855.72 cmDO Griselda Kuns Work Phone: [facility]02-15-2024 13:11-0500 Body mass index (BMI) [Ratio]27.9 kg/m2DO Griselda Kuns Work Phone: [facility]02-15-2024 13:11-0500 Body zdyhnv26.46 kgDO Griselda Kuns Work Phone: [facility]02-15-2024 13:11-0500 Diastolic blood dyveptna21 mm[Hg]DO Griselda Kuns Work Phone: [facility]02-15-2024 13:11-0500 Heart rate68 /minDO Griselda Kuns Work Phone: [facility]02-15-2024 13:11-0500 Respiratory rate16 /minDO Griselda Kuns Work Phone: [facility]02-15-2024 13:11-0500 SaO2% (BldA) [Mass fraction]97 %DO Griselda Kuns Work Phone: [facility]02-15-2024 13:11-0500 Systolic blood wnniwvjm184 mm[Hg]DO Griselda Kuns Work Phone: [facility]01-15-2024 09:30-0500 Body zfxezt191.72 cmBrett Andreas Other [facility]01-15-2024 09:30-0500 Body mass index (BMI) [Ratio]28.28 kg/k5Nksbd Kuns Other [employer] Other 01-15-2024 09:30-0500Body xxxgal67.37 kgBrett Kuns Other [employer] Other 01-15-2024 09:30-0500Body einmyg55.36 kgDO Griselda Kuns Work Phone: [facility]01-15-2024 09:30-0500 Diastolic blood tuzjfcld18 mm[Hg]Griselda Andreas Other [facility]01-15-2024 09:30-0500 Respiratory rate16 /minBrett Andreas Other [facility] [employer] Other 01-15-2024 09:30-4239QeH0% (BldA) [Mass fraction]97 % Griselda Andreas Other [employer] [employer] Other 01-15-2024 09:30-0500Systolic blood nlpdojxj080 mm[Hg] Griselda Andreas Other [facility]12-14-2023 13:45-0500 Body vrbixx752.72 cmBrett Andreas Other [facility]12-14-2023 13:45-0500 Body mass index (BMI) [Ratio]27.37 kg/e7Hiiks Kuns Other [facility] [employer] Other [id number] 13:45-0500Body fhwehm89.65 kgBreaidan Krause Other [employer] Other [id number] 13:45-0500Body fmnaqc97.64 kgDO Griselda Krause Work Phone: [facility]12-14-2023 13:45-0500 Diastolic blood rbdmpqhi41 mm[Hg]Griseldaaidan Krause Other [facility]12-14-2023 13:45-0500 Respiratory rate18 /minGriselda Krause Other [facility] [employer] Other [id number] 13:45-9433NkC0% (BldA) [Mass fraction]98 % Griselda Krause Other [employer] [employer] Other [id number] 13:45-0500Systolic blood apdcwkur589 mm[Hg] Griselda Krause Other [facility]12-13-2023 11:15-0500 Body flkxot812.72 cmMamargie Harvey Other [facility]12-13-2023 11:15-0500 Body mass index (BMI) [Ratio]27.52 kg/d7PwfbrdkRuddy Harvey Other [employer] [employer] Other 12-13-2023 11:15-0500Body ddjtiinezcb84.8 [degF] Ruddy Harvey Other [employer] [employer] Other 12-13-2023 11:15-0500Body isgaad89.1 kgMamargie Harvey Other [facility]12-13-2023 11:15-0500 SaO2% (BldA) [Mass fraction]98 %Ruddy Harvey Other [facility] [employer] Other 11-28-2023 13:20-0500Body eeligk605.72 cmLinda Kamla Other [facility]11-28-2023 13:20-0500 Body mass index (BMI) [Ratio]27.52 kg/x0Hbldd Kamla Other [facility] [employer] Other 11-28-2023 13:20-0500Body .1 kgLinda Kamla Other [facility]11-28-2023 13:20-0500 Diastolic blood lexfgoiy53 mm[Hg]Lilliam Kamla Other [facility]11-28-2023 13:20-0500 Respiratory rate18 /minLinda Kamla Other [facility] [employer] Other [id number] 13:20-0792QqU6% (BldA) [Mass fraction]98 % Lilliam Kamla Other [employer] [employer] Other 11-28-2023 13:20-0500Systolic blood dzluzrnr624 mm[Hg] Lilliam Kamla Other [facility]11-20-2023 13:16-0500 Diastolic blood anwdebhg83 mm[Hg]DO Griselda Kuns Work Phone: [facility]11-20-2023 13:16-0500 Heart rate75 /minDO Griselda Kuns Work Phone: [facility]11-20-2023 13:16-0500 Respiratory rate16 /minDO Griselda Kuns Work Phone: [facility]11-20-2023 13:16-0500 SaO2% (BldA) [Mass fraction]96 %DO [employer] Work Phone: [facility]11-20-2023 13:16-0500 Systolic blood acemzeuo705 mm[Hg]DO [employer] Work Phone: [facility]11-20-2023 10:30-0500 Inhaled oxygen flow rate3 L/minDO Griselda Wellpartner Work Phone: [facility]11-20-2023 08:29-0500 Body ufuawo785.72 cmDO [employer] Work Phone: [facility]11-20-2023 08:29-0500 Body .37 kgDO [employer] Work Phone: [facility]11-16-2023 09:15-0500 Body vhyphw237.72 cmRuddy Harvey Other [employer] Other 11-16-2023 09:15-0500Body mass index (BMI) [Ratio] 27.06 kg/g9SohbyuvRuddy Harvey Other [facility] [employer] Other 11-16-2023 09:15-0500Body tnaflrtlpbb15.8 [degF] Ruddy Harvey Other [employer] Other 11-16-2023 09:15-0500Body kttyuv36.74 kgMamargie Harvey Other [facility] Other 11-16-2023 09:15-0500Diastolic blood ngznylbi23 mm[Hg] Ruddy [facility] Other 11-16-2023 09:15-3820GkS1% (BldA) [Mass fraction]97 % Ruddy Harvey Other [employer] Other 11-16-2023 09:15-0500Systolic blood qjaltrwu688 mm[Hg] Rdudy Langdoris Other [employer] Other 11-14-2023 10:30-0500Body qoiodd241.72 cmBreaidan Krause Other [employer] Other 11-14-2023 10:30-0500Body mass index (BMI) [Ratio] 27.06 kg/b7Hfwwm Kuns Other [employer] Other 11-14-2023 10:30-0500Body gaxist75.74 kgBreaidan Krause Other [employer] Other 11-14-2023 10:30-0500Diastolic blood cthsaiff37 mm[Hg] Griseldaaidan Krause Other [employer] Other 11-14-2023 10:30-0500Respiratory rate18 /minBreaidan Krause Other [employer] Other 11-14-2023 10:30-6955XtP9% (BldA) [Mass fraction]96 % Griseldaaidan Eckerts Other [employer] Other 11-14-2023 10:30-0500Systolic blood yozpeqsi042 mm[Hg] Griselda Andreas Other [employer] Other 10-25-2023 10:40-0400Body brazwe647.72 cmLinda Kamla Other [facility] [employer] Other 10-25-2023 10:40-0400Body mass index (BMI) [Ratio] 26.67 kg/y4Dkkpp Kamla Other [facility] [employer] Other 10-25-2023 10:40-0400Body .56 kgLinshanelle Kamla Other [facility] [employer] Other 10-25-2023 10:40-0400Diastolic blood iehiuqmb66 mm[Hg] Lilliam Grecooroge Other [employer] Other 10-25-2023 10:40-8865NjM4% (BldA) [Mass fraction]96 % Lilliam Grecooroge Other [employer] Other 10-25-2023 10:40-0400Systolic blood ynyybdmb255 mm[Hg] Lilliam Kamla Other [employer] [employer] Other 10-04-2023 02:42-0400Diastolic blood mysnwixm47 mm[Hg] DO Griselda Cubbys Work Phone: [facility]10-04-2023 02:42-0400 Heart rate72 /minDO Griselda Kuns Work Phone: [facility]10-04-2023 02:42-0400 Respiratory rate16 /minDO Griselda Kuns Work Phone: [facility]10-04-2023 02:42-0400 SaO2% (BldA) [Mass fraction]97 %DO Griselda Kuns Work Phone: [facility]10-04-2023 02:42-0400 Systolic blood oseamjle357 mm[Hg]DO Griselda Kuns Work Phone: [facility]10-04-2023 00:12-0400 Body .72 cmDO Griselda Krause Work Phone: [facility]10-04-2023 00:12-0400 Body yslysioyuab01 [degF]DO Griselda Krause Work Phone: [facility]10-04-2023 00:12-0400 Body fakfmg64.37 kgDO Griselda Krause Work Phone: [facility]09-28-2023 10:30-0400 Body ltnose910.72 cmBreaidan Krause Other [employer] Other 09-28-2023 10:30-0400Body mass index (BMI) [Ratio] 26.76 kg/r1GluwdGriselda Krause Other [employer] Other 09-28-2023 10:30-0400Body szfzyz70.83 kgBreaidan Krause Other [employer] Other 09-28-2023 10:30-0400Diastolic blood lumauyzw21 mm[Hg] Griselda Eckertroge Other [employer] Other 09-28-2023 10:30-0400Respiratory rate16 /minBreaidan Andrearoge Other [employer] Other 09-28-2023 10:30-5068DgE5% (BldA) [Mass fraction]97 % Griseldaaidan Krause Other [employer] Other 09-28-2023 10:30-0400Systolic blood biokfjbw142 mm[Hg] Griseldaaidan Krause Other [employer] Other 09-21-2023 10:00-0400Body vpyqqo870.72 cmBreaidan Eckerts Other [employer] Other 09-21-2023 10:00-0400Body mass index (BMI) [Ratio] 27.18 kg/j6Jfoud Kuns Other [facility] [employer] Other 09-21-2023 10:00-0400Body xpymln26.1 kgBreaidan Krause Other [facility] [employer] Other 09-21-2023 10:00-0400Diastolic blood wpkbwsar46 mm[Hg] Griselda Andreas Other [facility] [employer] Other 09-21-2023 10:00-0400Respiratory rate16 /minBreaidan rKause Other [facility] [employer] Other 09-21-2023 10:00-7902UqB8% (BldA) [Mass fraction]96 % Griseldaaidan Eckerts Other [facility] [employer] Other 09-21-2023 10:00-0400Systolic blood odbbjrgi238 mm[Hg] Griselda Andreas Other [employer] Other 09-11-2023 14:13-0400Body .72 cmDO Griselda Kuns Work Phone: [facility]09-11-2023 14:13-0400 Body holrpfzwnwl63 [degF]DO Griselda Kuns Work Phone: [facility]09-11-2023 14:13-0400 Body .6 kgDO Griselda Kuns Work Phone: [facility]09-11-2023 14:13-0400 Diastolic blood gjimtrbo23 mm[Hg]DO Griselda Cubbys Work Phone: [facility]09-11-2023 14:13-0400 Heart rate56 /minDO Griselda Eckerts Work Phone: [facility]09-11-2023 14:13-0400 Respiratory rate18 /minDO Griselda Eckerts Work Phone: [facility]09-11-2023 14:13-0400 SaO2% (BldA) [Mass fraction]96 %DO Griselda Cubbys Work Phone: [facility]09-11-2023 14:13-0400 Systolic blood ammlidom750 mm[Hg]DO Griselda Cubbys Work Phone: [facility]06-20-2023 10:15-0400 Body bfuavh401.72 cmGriselda Krause Other [employer] Other 06-20-2023 10:15-0400Body mass index (BMI) [Ratio] 25.85 kg/n2PcpixGriselda Krause Other [employer] Other 06-20-2023 10:15-0400Body njmtyx52.11 kgGriselda Krause Other [employer] Other 06-20-2023 10:15-0400Diastolic blood cisetues10 mm[Hg] Griselda Wellpartner Other [employer] Other 06-20-2023 10:15-0400Respiratory rate16 /minGriselda Krause Other [employer] Other 06-20-2023 10:15-9379KkT2% (BldA) [Mass fraction]96 % Griselda Kuns Other [facility] [employer] Other 06-20-2023 10:15-0400Systolic blood cmrrbvyg957 mm[Hg] Griselda Eckertroge Other [facility] [employer] Other 03-29-2023 10:57-0400Body tfzyvh182.6 cmSgilsonjenna Billyubek PA-C Work Phone: [facility]03-29-2023 10:57-0400Body temperature 97.39 [degF]Kelly Billyubek PA-C Work Phone: [place] [address]-29-2023 10:57-0400Body ybrffo16.34 kgSujenna Billyubek PA-C Work Phone: [facility]03-29-2023 10:57-0400Diastolic blood dhwjixfp34 mm[Hg]Kelly Billyxuank PA-C Work Phone: [place] [address]-29-2023 10:57-0400Heart rate70 /min Kelly Jakubek PA-C Work Phone: [facility]03-29-2023 10:57-0400Respiratory rate 18 /minSgilsonjenna Jakubek PA-C Work Phone: [facility]03-29-2023 10:57-1695PoX9% (BldA) [Mass fraction]100 %Kelly Billyxuank PA-C Work Phone: [place] [address]-29-2023 10:57-0400Systolic blood agucwhee269 mm[Hg]Kelly Billyxuank PA-C Work Phone: [facility]03-16-2023 11:15-0400Body .72 cmKatyaidan Eckertroge Other [employer] Other 03-16-2023 11:15-0400Body mass index (BMI) [Ratio] 26.79 kg/e3Zgyye Kuns Other [employer] Other 03-16-2023 11:15-0400Body orcnbs01.92 kgBrett Kuns Other [employer] Other 03-16-2023 11:15-0400Diastolic blood zuwvyxpo71 mm[Hg] Griselda Kuns Other [employer] Other 03-16-2023 11:15-0400Respiratory rate16 /minBrett Andreas Other [employer] Other 03-16-2023 11:15-3108MjS9% (BldA) [Mass fraction]98 % Griselda Andreas Other [employer] Other 03-16-2023 11:15-0400Systolic blood igvrnxkj860 mm[Hg] Griselda Kuns Other [employer] Other 02-14-2023 10:30-0500Body mtowmh087.72 cmBrett Kuns Other [employer] Other 02-14-2023 10:30-0500Body mass index (BMI) [Ratio] 27.27 kg/w6Hnqgc Kuns Other [employer] Other 02-14-2023 10:30-0500Body hyqepo91.38 kgBrett Kuns Other [employer] Other 02-14-2023 10:30-0500Diastolic blood oncnufpl49 mm[Hg] [facility]iselda [facility]uns [facility] [employer] Other 02-14-2023 10:30-0500Respiratory rate16 /minBrett Kuns Other [facility] [employer] Other 02-14-2023 10:30-3382LdA2% (BldA) [Mass fraction]99 % Griselda Kuns Other [facility] [employer] Other 02-14-2023 10:30-0500Systolic blood ztkfxqva696 mm[Hg] Griselda Kuns Other [facility] [employer] Other 01-30-2023 09:45-0500Diastolic blood jjrlbbce49 mm[Hg] DO Griselda Kuns Work Phone: [facility]01-30-2023 09:45-0500 Heart rate69 /minDO Griselda Kuns Work Phone: [facility]01-30-2023 09:45-0500 Respiratory rate16 /minDO Griselda Kuns Work Phone: [facility]01-30-2023 09:45-0500 SaO2% (BldA) [Mass fraction]99 %DO Griselda Kuns Work Phone: [facility]01-30-2023 09:45-0500 Systolic blood thxgygru125 mm[Hg]DO Griselda Kuns Work Phone: [facility]01-30-2023 07:58-0500 Body ukeoxp804.72 cmDO Griselda Kuns Work Phone: [facility]01-30-2023 07:58-0500 Body yyjunf09.37 kgDO Griselda Kuns Work Phone: [facility]01-11-2023 10:20-0500 Body .72 cmDeborah Blades Other [employer] Other 01-11-2023 10:20-0500Body mass index (BMI) [Ratio] 26.67 kg/o0Djhxxaz Blades Other [employer] Other 01-11-2023 10:20-0500Body hxlfec65.56 kgDeborah Blades Other [employer] Other 01-11-2023 10:20-0500Diastolic blood zjumabjj50 mm[Hg] Trish Blades Other [employer] Other 01-11-2023 10:20-0500Systolic blood gthnwicj252 mm[Hg] Trish Blades Other [employer] Other 12-09-2022 13:30-0500Body ytfhae105.72 cmBrett Kuns Other [employer] Other 12-09-2022 13:30-0500Body mass index (BMI) [Ratio]26.7 kg/x4Idhcb Kuns Other [employer] Other 12-09-2022 13:30-0500Body .65 kgBrett Kuns Other [employer] Other 12-09-2022 13:30-0500Diastolic blood pvyobwhx30 mm[Hg] Griselda Kuns Other [employer] Other 12-09-2022 13:30-0500Respiratory rate18 /minBrett Kuns Other [employer] Other 12-09-2022 13:30-2543GpH6% (BldA) [Mass fraction]98 % Griselda Kuns [facility] [employer] Other 12-09-2022 13:30-0500Systolic blood bpcvabky196 mm[Hg] Griselda Kuns Other [facility] [employer] Other [id number] 00:30-0400Diastolic blood clcdiryj73 mm[Hg] DO Griselda Kuns Work Phone: [facility]10-31-2022 00:30-0400 Heart rate78 /minDO Griselda Kuns Work Phone: [facility]10-31-2022 00:30-0400 Respiratory rate16 /minDO Griselda Kuns Work Phone: [facility]10-31-2022 00:30-0400 SaO2% (BldA) [Mass fraction]97 %DO Griselda Kuns Work Phone: [facility]10-31-2022 00:30-0400 Systolic blood yfxlhpna855 mm[Hg]DO Griselda Kuns Work Phone: [facility]10-30-2022 19:45-0400 Body lgakrj034.72 cmDO Griselda Kuns Work Phone: [facility]10-30-2022 19:45-0400 Body mddluktrjyf86.1 [degF]DO Griselda Kuns Work Phone: [facility]10-30-2022 19:45-0400 Body reyrwc51 kgDO Griselda Kuns Work Phone: [facility]10-20-2022 16:31-0400 Body .72 cmDO Griselda Kuns Work Phone: [facility]10-20-2022 16:31-0400 Body aniavfdtfrf49.1 [degF]DO Griselda Andreas Work Phone: [facility]10-20-2022 16:31-0400 Body .37 kgDO Griselda Kuns Work Phone: [facility]10-20-2022 16:31-0400 Diastolic blood bhevmgvn193 mm[Hg]DO Griselda Kuns Work Phone: [facility]10-20-2022 16:31-0400 Heart rate95 /minDO Griselda Andreas Work Phone: [facility]10-20-2022 16:31-0400 Respiratory rate19 /minDO Griselda Kuns Work Phone: [facility]10-20-2022 16:31-0400 SaO2% (BldA) [Mass fraction]97 %DO Griselda Kuns Work Phone: [facility]10-20-2022 16:31-0400 Systolic blood xcimmcgi681 mm[Hg]DO Griselda Andreas Work Phone: [facility]09-29-2022 13:30-0400 Body yqftix162.72 cmGriselda Krause Other [employer] Other 09-29-2022 13:30-0400Body mass index (BMI) [Ratio] 26.91 kg/e3AfnrsGriselda Eckertroeg Other [employer] Other 09-29-2022 13:30-0400Body wabatu22.29 kgBreaidan Darling Other [employer] Other 09-29-2022 13:30-0400Diastolic blood qtjqtfud40 mm[Hg] Griselda [facility]aroge Other [facility] [employer] Other 09-29-2022 13:30-0400Respiratory rate16 /minBrett Kuns Other [employer] Other 09-29-2022 13:30-3754DtD5% (BldA) [Mass fraction]97 % Griselda Andreas Other [employer] Other 09-29-2022 13:30-0400Systolic blood fyllcbef418 mm[Hg] Griselda Kuns Other [employer] Other 08-15-2022 12:00-0400Body yxznse874.72 cmBrett Darling Other [employer] Other 08-15-2022 12:00-0400Body mass index (BMI) [Ratio]26.3 kg/i1Eemka Andreas Other [employer] Other 08-15-2022 12:00-0400Body ojwqat77.47 kgBrett Andreas Other [employer] Other 08-15-2022 12:00-0400Diastolic blood mm[Hg] Griselda Kuns Other [employer] Other 08-15-2022 12:00-0400Respiratory rate16 /minBrett Kuns Other [employer] Other 08-15-2022 12:00-6242MnP3% (BldA) [Mass fraction]99 % Griselda Kuns Other [employer] Other 08-15-2022 12:00-0400Systolic blood sgekabbh017 mm[Hg] Griselda Kuns Other [employer] Other 07-11-2022 11:00-0400Body ezyizp671.72 cmBrett Kuns Other [employer] Other 07-11-2022 11:00-0400Body mass index (BMI) [Ratio] 26.61 kg/m2Uosad Kuns Other [employer] Other 07-11-2022 11:00-0400Body .38 kgBrett Kuns Other [employer] Other 07-11-2022 11:00-0400Diastolic blood warmawbu44 mm[Hg] Griselda Kuns Other [employer] Other 07-11-2022 11:00-0400Respiratory rate16 /minBrett Kuns Other [employer] Other 07-11-2022 11:00-3350VbV9% (BldA) [Mass fraction]96 % Griselda Kuns Other [employer] Other 07-11-2022 11:00-0400Systolic blood ofetrbni757 mm[Hg] Griselda Kuns Other [employer] Other 06-20-2022 10:15-0400Body jkzzxa743.72 cmBrett Kuns Other [employer] Other 06-20-2022 10:15-0400Body mass index (BMI) [Ratio] 269.71 kg/x1Snvbi Kuns Other [employer] Other 06-20-2022 10:15-0400Body ubttjj208.69 kgBrett Kuns Other [employer] Other 06-20-2022 10:15-0400Diastolic blood fnbrwpuw33 mm[Hg] Griselda Kuns Other [employer] Other 06-20-2022 10:15-0400Respiratory rate18 /minBrett Kuns Other [employer] Other 06-20-2022 10:15-2487UfN8% (BldA) [Mass fraction]99 % Griselda Kuns Other [employer] Other 06-20-2022 10:15-0400Systolic blood jufgtwnt668 mm[Hg] Griselda Kuns Other [employer] Other 05-24-2022 11:15-0400Body .72 cmBrett Andreas Other [employer] Other 05-24-2022 11:15-0400Body mass index (BMI) [Ratio] 27.06 kg/j9Nqzch Andreas Other [employer] Other 05-24-2022 11:15-0400Body vsaiqx17.74 kgBrett Kuns Other [employer] Other 05-24-2022 11:15-0400Diastolic blood rrmbuvzp53 mm[Hg] Griselda Kuns Other [employer] Other 05-24-2022 11:15-0400Respiratory rate16 /minGriselda Krause Other [facility] Other 05-24-2022 11:15-6458ZvK4% (BldA) [Mass fraction]97 % Griselda Krause [facility] Other 05-24-2022 11:15-0400Systolic blood qtbrkaep351 mm[Hg] Griselda Krause [facility] Other 05-19-2022 09:38-0400Body jzqyfs433.51 cmGriselda Driver Darling Work Phone: 1([phone]) [phone]-YxagdtlOSF [facility] Work Phone: 1(788) [phone] 09:38-0400Body mass index (BMI) [Ratio] 27.05 kg/g9Idzxl R Darling Work Phone: [phone]-KxogxveOS[facility] Work Phone: [phone] 09:38-0400Body surface area Derived from formula1.91 n4Snohs Neisha Krause Work Phone: [phone]-WsgvbrxOSF [facility] Work Phone: [phone] 09:38-0400Body ppulolduflf99.2 [degF]Griselda Krause Work Phone: [phone]-VzmgoipOSF [facility] Work Phone: [phone] 09:38-0400Body .65 kgGriselda Driver Darling Work Phone: 1(240) [phone]-[facility]axuvj[facility] Work Phone: [phone] 09:38-0400Diastolic blood mm[Hg] Griselda Krause Work Phone: 1(150) [phone]-PkompmtOS[facility] Work Phone: 1(690) [phone] 09:38-0400Heart rate63 /minGriselda R Darling Work Phone: 1(562) [phone]-RaaxkpiOS[facility] Work Phone: 1(047)[phone] 09:38-0400Respiratory rate16 /minBrett R Andreas Work Phone: 1(844) [phone]-SibxmpyOS[facility] Work Phone: 1(560)[phone] 09:38-0001IcG6% (BldA) [Mass fraction]99 % Griseldaaidan Krause Work Phone: 1(215) [phone]-RjjfzmyOS[facility] Work Phone: 1([phone] 09:38-0400Systolic blood rowgefow665 mm[Hg] Griselda Krause Work Phone: 1(127) [phone]-RwymxbuOS[facility] Work Phone: 1(245)[phone] 09:38-66563 1Brett Neisha Krause Work Phone: 1(478) [phone]-AmifcuhOS[facility] Work Phone: comment on above:HjqxBxxnu75-41-9061 13:30-0400Body yberww450.72 cmGriselda Krause Other [employer] Other 05-17-2022 13:30-0400Body mass index (BMI) [Ratio] 26.61 kg/u1CfnenGriselda Krause Other [employer] Other 05-17-2022 13:30-0400Body mlcpig07.38 kgGriselda Krause Other [employer] Other 05-17-2022 13:30-0400Diastolic blood wotuvtbr95 mm[Hg] Griselda Krause Other [employer] Other 05-17-2022 13:30-0400Respiratory rate18 /minBreaidan Krause Other [employer] Other 05-17-2022 13:30-6294XeX0% (BldA) [Mass fraction]99 % Griselda Krause Other [employer] Other 05-17-2022 13:30-0400Systolic blood lgdgvxyd792 mm[Hg] Griselda Krause Other [employer] Other 05-09-2022 09:45-0400Body trovza226.72 cmDanisurekha Schneider Other [employer] Other 05-09-2022 09:45-0400Body mass index (BMI) [Ratio] 26.76 kg/g3Ccqsdedionicio Schneider Other [employer] Other 05-09-2022 09:45-0400Body mgzzoc07.83 kgDadionicio Schneider Other [employer] Other 04-28-2022 09:50-0400Body eoilal962 cmVivenori Cole MD Work Phone: [facility]04-28-2022 09:50-0400Body temperature 97.5 [degF]Racquel Cole MD Work Phone: [facility]04-28-2022 09:50-0400Body zxyduq12.28 kgRacquel Cole MD Work Phone: [facility]04-28-2022 09:50-0400Diastolic blood iyflpqbm50 mm[Hg]Racquel Cole MD Work Phone: [facility]04-28-2022 09:50-0400Heart rate70 /min Racquel Cole MD Work Phone: [facility]04-28-2022 09:50-0400Respiratory rate 16 /minRacquel Cole MD Work Phone: [facility]04-28-2022 09:50-4483HmV0% (BldA) [Mass fraction]99 %Racquel Cole MD Work Phone: [facility]04-28-2022 09:50-0400Systolic blood zickfuqs059 mm[Hg]Racquel Cole MD Work Phone: [facility]04-04-2022 10:45-0400Body .72 cmGriselda Krause Other [employer] Other 04-04-2022 10:45-0400Body mass index (BMI) [Ratio] 26.15 kg/x5XbsfwGriselda Krause Other [employer] Other 04-04-2022 10:45-0400Body hcugxz94.02 kgGriselda Krause Other [employer] Other 04-04-2022 10:45-0400Diastolic blood evoldjbi55 mm[Hg] Griselda Krause Other [employer] Other 04-04-2022 10:45-0400Respiratory rate18 /minGriselda Krause Other [employer] Other 04-04-2022 10:45-0049QuG2% (BldA) [Mass fraction]99 % Griselda Krause Other [employer] Other 04-04-2022 10:45-0400Systolic blood yumjxcge203 mm[Hg] Griselda Krause Other [facility] [employer] Other 01-13-2022 13:30-0500Body .72 cmBrett Kuns [facility] [employer] Other 10-28-2021 08:45-0400Body xnoscy742.72 cmBrett Kuns Other [facility] [employer] Other 10-28-2021 08:45-0400Body mass index (BMI) [Ratio] 25.85 kg/s5Qpfcq Kuns Other [facility] [employer] Other 10-28-2021 08:45-0400Body nxevwg60.11 kgBrett Kuns Other [place] [employer] Other 10-28-2021 08:45-0400Diastolic blood ceqvruie65 mm[Hg] Griselda Kuns Other [facility] [employer] Other 10-28-2021 08:45-0400Respiratory rate16 /minBrett Kuns Other [facility] [employer] Other 10-28-2021 08:45-3517JfS9% (BldA) [Mass fraction]99 % Griselda Kuns Other [facility] [employer] Other 10-28-2021 08:45-0400Systolic blood abzjkbnz329 mm[Hg] Griselda Kuns Other [employer] Other Encounters Encounter DateEncounter TypeCare ProviderFacilityStart: 04-27-2025 End: 14-01-2790ewghospxfkBthhd Kuns DO Work Phone: [phone]-Zvwhzhfgm Health CardiologyStart: 04-27-2025 End: 66-80-6128Ltxzhoo encounter procedureLilliam Cason MD-[facility] Cardiology Work Phone: Start: 04-07-2025 End: 05-10-2850Ttwrdgxxd Result EncounterOziel Cadena MD Work Phone: noms External Department UnsolicitedStart: 04-07-2025 End: 56-51-9009Ossavfosc Result EncounterOziel Cadena MD Work Phone: noms External Department UnsolicitedStart: 04-03-2025 Non-patient / Non-visitGriselda Krause DO-[facility] Work Phone: Start: 04-01-2025 End: 31-85-0446urcbijqqwpGuhay Kuns DO Work Phone: [facility] Work Phone: Start: 04-01-2025 End: 29-62-1733Grunjay encounter procedureGriselda Krause DO-[facility] Work Phone: Start: 03-30-2025 End: 99-04-7628felfhfpnovKvxyagt Vytautas Giedraitis MDFacility:PM Jack Start: 03-24-2025 End: 17-11-0305kwifeqamteOIJYYGVH [facility] Centertart: 03-18-2025 End: 48-58-0459Mwcgnu flowsMarshal Cadena MD Work Phone: noms NEUROLOGYStart: 03-18-2025 End: 29-63-8071Nzxvnb Preet Cadena MD Work Phone: noms BM NEUROLOGYStart: 03-18-2025 End: 99-70-8257gysfixubkgITVSYUZ W BAUERNot AvailableComment on above:Other nerve root and plexus disorders (Primary Dx); Acute pain of left shoulder; Acute pain of right shoulderStart: 02-26-2025 End: 93-79-1156Gdgsqyr encounter procedureGriselda Krause DO-Ul[facility] [place] Work Phone: Start: 02-26-2025 End: 87-93-9043qenxnycxrtTtjby Kuns DO Work Phone: [facility] Work Phone: Start: 13-70-7644Qbauofd encounter procedureGriselda Krause DO Work Phone: [facility]: 02-19-2025 End: 12-27-2781uckygaeyjmOgtfs Kuns DO Work Phone: [facility] Work Phone: Start: 02-19-2025 End: 62-06-8449Sjwwpve encounter procedureGriselda Krause DO-[facility] [place] Work Phone: Start: 14-45-7493Rlo-patient / Non-visitMelissa Juliet Arias DO-[facility] Work Phone: Start: 02-13-2025 End: 62-94-2951qycsruqdtqKRMIJQYWTogus VA Medical Centertart: 02-09-2025 End: 33-02-1464fnkhsvcmzlYrufgqz Vytautas Giedraitis MDFacility:[facility] [place] Start: 02-04-2025 End: 88-67-1884Riydmrxm SupportOziel Cadena MD Work Phone: [facility] NeurologyComment on above:Acute pain of right shoulder (Primary Dx); Nerve root and plexus disorder, unspecified; Acute pain of left shoulderStart: 02-04-2025 End: 37-15-4659Ahazlo flowsMarshal Cadena MD Work Phone: noms NEUROLOGYStart: 02-04-2025 End: 76-18-2614Ztjosy flowsMarshal Cadena MD Work Phone: NOMS BM NEUROLOGYStart: 21-57-5417Ckd-patient / Non-visitAndrius Rxoy NORRIS-[facility] Work Phone: Start: 01-26-2025 End: 00-27-4660dmzhhziulnXsfmmkj Erickaytsharla Ramsey MDFacility:[facility] [place] Start: 01-12-2025 End: 62-39-9345zqjlqbvwcrKoojy Darling DO Work Phone: [facility] Work Phone: Start: 01-12-2025 End: 21-64-9645Gikdjpr encounter procedurewen Mullins APRUniversity Of Missouri Health Care Work Phone: Start: 01-08-2025 End: 99-14-6130Hsmchr [facility] PA Work Phone: noms SWS DERMStart: 01-08-2025 End: 34-18-5607Tvghrl [facility] PA Work Phone: noms SWS DERMStart: 01-08-2025 End: 68-93-5235Igpzgg outpatient visit 15 [facility] Work Phone: noms SWS DERMComment on above:Melanocytic nevus of trunk (Primary Dx); Seborrheic keratosis; Inflamed seborrheic keratosis; Actinic keratosis; Capillary angioma; History of SCC (squamous cell carcinoma) of skinStart: 01-08-2025 End: 07-67-3220xjkndvrszbYKTEL NORTHEIMNot AvailableStart: 12-29-2024 End: 74-10-2423euytuzqqnuFWTRILP ZHOUNot AvailableStart: 12-24-2024 End: 19-22-4381Itfjik Preet Cadena MD Work Phone: noms BM NEUROLOGYStart: 12-24-2024 End: 96-82-0365Nzyuea Preet Cadena MD Work Phone: noms BM NEUROLOGYStart: 12-24-2024 End: 79-12-7386Maerkrxj SupportOziel Cadena MD Work Phone: [facility] NeurologyComment on above:Nerve root and plexus disorder, unspecified (Primary Dx); Acute pain of left shoulderStart: 2024 End: 81-53-4430Moymejv encounter procedureBrett Kuns DO Work Phone: [facility] CtrStart: 2024 End: 44-36-3739rlwtfeleacHspgb Kuns DO Work Phone: [facility] Work Phone: Start: 11-19-2024 End: 09-87-4553hxsjuvyjntJjamq Kuns DO Work Phone: [facility] Work Phone: Start: 11-19-2024 End: 55-50-4475Invodwn encounter procedureBrett Kuns DO Work Phone: [facility]St[facility] Work Phone: Start: 11-17-2024 End: 60-99-4741oapxjraceoPbkut Kuns DO Work Phone: [facility] Work Phone: Start: 11-17-2024 End: 18-27-8955Sywhzqy encounter procedureBrett Kuns DO Work Phone: [facility] GroupSaint [facility] Work Phone: Start: 11-12-2024 End: 63-04-1459Rmtrdp flowsMarshal Cadena MD Work Phone: noms BM NEUROLOGYStart: 11-12-2024 End: 68-78-7353Eehkaj Preet Cadena MD Work Phone: noms NEUROLOGYStart: 11-12-2024 End: 49-60-7209Lkqesoga SupportOziel Cadena MD Work Phone: NOMS SWS NEURComment on above:Nerve root and plexus disorder, unspecified (Primary Dx); Acute pain of left shoulderStart: 11-07-2024 End: 60-96-8810hcprnuiclrDMNTJ ABHYANKARFacility:TriHealthtart: 25-89-8210Zrr-patient / Non-visitBrett Kuns DO Work Phone: [facility] Gastro Work Phone: Start: 11-05-2024 End: 16-44-4674Qnumclpkl to same day surgery centerBreaidan Krause DO Work Phone: [facility]-Digestive Health Work Phone: Start: 11-05-2024 End: 03-89-7344mfmftmzesjXkub AsaadFacility:[facility] Start: 11-03-2024 End: 77-11-0450Brlaqdccv encounterRacquel Cole MD Work Phone: Hematology/OncologyComment on above:OrdersStart: 05-43-2660Zci-patient / Non-visitBrett Kuns DO Work Phone: [facility] GroupProv[facility] Work Phone: Start: 19-12-4517tjuuhmeubwJCAIS HYFERNIE Facility:[facility]Healthtart: 11-03-2024 End: 20-14-3786Pipjssmmgs hospital visit by physicianArrival Time Radiology Work Phone: Radiology Pet CTComment on above: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]Start: 10-27-2024 End: 80-46-1539diibchqvhnNqsvb Kuns DO Work Phone: [facility] Work Phone: Start: 10-27-2024 End: 75-77-5448Xcewtah encounter procedureBreaidan Krause DO Work Phone: [facility] Cardiology Work Phone: Start: 10-21-2024 End: 06-77-8906Ymfqxsmyac hospital visit by physicianRad External FilmEF RAD EXTERNAL FILM VIRTUALComment on above:ArrivedStart: 10-21-2024 End: 42-71-0011mzpfbsqocdFOSSJHRSouthwest General Health Centertart: 10-13-2024 End: 90-41-8951Tnqhmu outpatient visit 40 minutesXilara Harris MD Work Phone: [facility] DublinComment on above:Status post cervical spinal fusion (Primary Dx)Start: 10-13-2024 End: 00-83-0482bqcdrwtiwaEHSJGUISaint John's Health System AmbulatoryStart: 10-10-2024 End: 54-77-0730pypvimyhbhCgxme Kuns DO Work Phone: [facility] Work Phone: Start: 10-10-2024 End: 42-12-3042Bzcfply encounter procedureBreaidan Eckerts DO Work Phone: [facility] Gastro Work Phone: Start: 10-10-2024 End: 60-29-0458Qhecqtf encounter procedureBreaidan Eckerts DO Work Phone: [facility]-XRay [place] Work Phone: Start: 10-10-2024 End: 56-50-3216htbiateqjpGkfmx Kuns DO Work Phone: [facility] Work Phone: Start: 10-07-2024 End: 89-96-5361Wimjdaw encounter procedureBrett Kuns DO Work Phone: [facility]-Lab [place] Work Phone: Start: 10-07-2024 End: 49-72-8412tuiclgzibqYptds Kuns DO Work Phone: [facility] Work Phone: Start: 10-06-2024 End: 14-88-0557Mqflrxdxo department patient visitGriselda Krause DO Work Phone: [facility]-Emergency Room Work Phone: Start: 09-22-2024 End: 88-80-3026ecbpmqirhkBxpoazl Vytautas Giedraitis MDFacility:PM [facility] Start: 09-20-2024 End: 40-20-4612Fkbvjbboy department patient visitGriselda Krause DO Work Phone: [facility]-Emergency Room Work Phone: Start: 09-15-2024 End: 81-70-1364zmzltyxpegMcpztsy Vytautas Giedraitis MDFacility:[facility] Start: 09-11-2024 End: 38-16-7774Baqnva flowsMarshal Cadena MD Work Phone: noms NEUROLOGYStart: 09-11-2024 End: 26-64-3319Czsgmj flowsMarshal Cadena MD Work Phone: noms NEUROLOGYStart: 09-11-2024 End: 25-87-6371Ugofiavg SupportBremadisyn Cadena MD Work Phone: noms SWS NEURComment on above:Nerve root and plexus disorder, unspecified (Primary Dx)Start: 09-11-2024 End: 28-28-8515Rqfmwhp encounter procedureBreaidan Krause DO Work Phone: [facility] GroupAt[facility] V[facility] Surg Work Phone: Start: 09-11-2024 End: 79-52-6549gaxkzvvmyrJiutq Kuns DO Work Phone: [facility] Work Phone: Start: 07-31-2024 End: 15-32-8464Jowscr Preet Cadena MD Work Phone: noms BM NEUROLOGYStart: 07-31-2024 End: 30-64-0244Stevok Preet Cadena MD Work Phone: noms BM NEUROLOGYStart: 07-31-2024 End: 05-73-2771Eehrchph SupportOziel Cadena MD Work Phone: noms SWS NEURComment on above:Nerve root and plexus disorder, unspecified (Primary Dx)Start: 07-28-2024 End: 72-80-4527jvjibxxtatDzjupem Vytautas Giedraitis MDFacility:[facility] [place] Start: 07-07-2024 End: 49-20-9693spppctpiacXzqoijq Vytautas Giedraitis MDFacility:[facility] [place] Start: 07-03-2024 End: 81-90-8700gmvmmwweauCeqvq Andreas DO Work Phone: [facility] Work Phone: Start: 07-03-2024 End: 85-09-9155Nconxem encounter procedureBrett Kuns DO Work Phone: [facility] GroupSt[facility] Work Phone: Start: 07-02-2024 End: 18-74-9555Vjfafkmagdalena Cadena MD Work Phone: noms NEUROLOGYStart: 07-02-2024 End: 34-91-4944Kbhmqz Preet Cadena MD Work Phone: noms BM NEUROLOGYStart: 07-02-2024 End: 74-84-8343Oeunxyrf SupportOziel Cadena MD Work Phone: noms SWS NEURComment on above:Nerve root and plexus disorder, unspecified (Primary Dx)Start: 06-30-2024 End: 71-38-3431Ylooui follow up visit related to original pxXiaodale Harris MD Work Phone: [facility] DublinComment on above:Status post cervical spinal fusion (Primary Dx)Start: 06-30-2024 End: 39-32-3969ievzhuysunLHWNHINBellville Medical Center AmbulatoryStart: 06-24-2024 End: 46-91-6989Bfiohfg encounter procedureBreaidan Eckertroge DO Work Phone: [facility] Work Phone: Start: 06-24-2024 End: 69-98-6832qgmqdxyoenDgket Kuns DO Work Phone: [facility] Work Phone: Start: 05-21-2024 End: 92-04-2364Ulsmrv flowsMarshal Cadena MD Work Phone: noms NEUROLOGYStart: 05-21-2024 End: 13-48-0339Kquuel flowsMarshal Cadena MD Work Phone: noms NEUROLOGYStart: 05-21-2024 End: 55-20-3425Bgviunwc SupportBremadisyn Cadena MD Work Phone: noms [facility] NEURComment on above:Other nerve root and plexus disorders (Primary Dx); Cervical paraspinal muscle spasm; Cervical stenosis of spinal canalStart: 04-30-2024 End: 05-40-2995Swedhi follow up visit related to original Kd Narayanan PA-C Work Phone: [facility] HospitalComment on above:Cervical radiculopathy (Primary Dx); Status post cervical spinal fusion; Acute postoperative pain; Muscle spasms of neckStart: 04-30-2024 End: 96-49-7271ojoktircfjRTKX [facility] AmbulatoryStart: 04-28-2024 End: 28-82-6398pevgaecxteSnwxvcyfdUniversity Hospitals [facility] Work Phone: Start: 04-28-2024 End: 35-03-9557Wgmuvsm encounter procedureRegino Physician Group-[facility] Card[facility] Work Phone: Start: 04-09-2024 End: 64-76-4456gvatmffhteYLWZROO [facility] Hospitaltart: 04-09-2024 End: 71-92-1027Wxckxrbwtw and management of inpatientDoretha Harris MD Work Phone: [facility] 4Comment on above:Cervical radiculopathy (Primary Dx); Senile osteoporosisStart: 04-01-2024 End: 46-48-6177rawtoxzidqXckqpenffSumma Health [facility] Campus Work Phone: Start: 04-01-2024 End: 96-10-0320Avmwqer encounter procedureRegino Physician Group-[facility] [place] Work Phone: Start: 03-31-2024 End: 30-22-9240Kubgipnunl hospital visit by physicianRad External FilmEF RAD EXTERNAL FILM VIRTUALComment on above:ArrivedStart: 03-31-2024 End: 90-96-4188ikuspzogeaXFYWJYF [facility] Hospitaltart: 03-26-2024 End: 29-34-7425ubkyjtquliPLSQOYCSouthwest General Health Centertart: 03-19-2024 End: 16-16-8179rlijkmpdqmSRJVI R KUNSumma Health Akron Campustart: 02-13-2024 End: 27-94-7769Vppfagfned hospital visit by physicianEly X-Ray [address] [place], [place] [address]Comment on above:Cervical radiculopathyStart: 02-13-2024 End: 99-65-5217lbhuhwhjqoGRJDYAZ [facility] Start: 02-13-2024 End: 87-29-3212qagzytyqjgZZCUNWUUniversity Hospitals [facility] Start: 02-11-2024 End: 50-41-9467mnkrcopviuDIFBIBRSouthwest General Health Centertart: 02-11-2024 End: 34-34-0178swmzteeoccJZVSCHV ZHOUUpper Valley Medical Centertart: 02-11-2024 End: 19-64-0283Vrxdoqvwbn hospital [facility] physicianMer[facility] Mng8112 Cr Nonv1 Holter/Ecg ResourceSt. Lawrence Rehabilitation Center MatherComment on above:Cervical radiculopathy; Senile osteoporosisStart: 02-04-2024 End: 86-38-4056rhpazrplfmUWIEU R KUNSUniNewark Hospitaltart: 01-31-2024 End: 47-45-5209mvpfpsitboRizsghojoSumma Health [facility]ron Campus Work Phone: Start: 01-31-2024 End: 86-45-6671Wbdcrrb encounter procedureFormerly [facility] Medicine [place] Work Phone: Start: 01-03-2024 End: 19-11-9451Uwczbu outpatient new 60 minutesDoretha Harris MD Work Phone: [facility] CenterComment on above:Cervical radiculopathy (Primary Dx); Senile osteoporosisStart: 12-13-2023 End: 46-50-7364Sveoec outpatient visit 40 minutesHelder Jack MD Work Phone: [facility] ServicesComment on above:Pontine glioma (Multi)Start: 12-13-2023 End: 91-37-0760lheslhfvavKDWMDEY B NEWTONUpper Valley Medical Centertart: 12-13-2023 End: 66-56-0959Igjbvmsayp hospital visit by physicianMer[facility] Mri [address] [place], [place] [address]Comment on above:Pontine glioma (Multi)Start: 12-13-2023 End: 62-66-5529wuzhjflzkgUTJJB K SOTAKUpper Valley Medical Centertart: 12-12-2023 End: 68-98-0914Wgontu outpatient new 45 minutesSolomon Narayanan PA-C Work Phone: [facility] CenterComment on above:Cervical radiculopathy (Primary Dx); Occipital neuralgia of left side; Balance problemStart: 12-03-2023 End: 15-11-5212uwoiqruagxTW Griselda Krause Work Phone: [facility] Work Phone: Start: 12-03-2023 End: 57-11-8137Jlmgejj encounter procedureDO Griselda Krause Work Phone: [facility] Work Phone: Start: 11-02-2023 End: 39-12-2928Cwnhsb outpatient visit 25 minutesRacquel Cole MD Work Phone: Hematology/OncologyComment on above: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)Start: 10-29-2023 End: 27-39-3845roijmpqnswAW Griselda Darling Work Phone: [facility] Work Phone: Start: 10-29-2023 End: 96-47-2040Dloxamu encounter procedureDO Griselda Darling Work Phone: [facility] Work Phone: Start: 98-91-2814Mqs-patient / Non-visitDO Griselda Eckertroge Work Phone: [facility] Work Phone: Start: 10-26-2023 End: 69-84-3424Ozvpvaddul hospital visit by physicianArrival Time Radiology Work Phone: Radiology Pet CTComment on above: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]Start: 10-18-2023 End: 74-71-0402Mzfexbs encounter procedureDO Griselda Krause Work Phone: [facility] Cardiology Work Phone: Start: 10-09-2023 End: 46-92-4034frrpumyiqcKQ Griselda Kuns Work Phone: [facility] Work Phone: Start: 10-09-2023 End: 67-01-1815Aefntsh encounter procedureDO Griselda Krause Work Phone: [facility] Work Phone: Start: 10-05-2023 End: 14-41-8325Qrqrqs outpatient new 60 minutesHelder Jack MD Work Phone: [facility] ServicesComment on above:Brainstem lesion (Primary Dx); Pontine glioma (Multi)Start: 09-19-2023 End: 65-21-3139Ajxrcmkrsp hospital visit by physicianRad External FilmEF RAD EXTERNAL FILM VIRTUALComment on above:ArrivedStart: 09-05-2023 End: 14-93-5328xuolmsvpxcOT Griselda Krause Work Phone: [facility] Work Phone: Start: 09-05-2023 End: 19-97-6631Hyemeev encounter procedureDO Griselda Krause Work Phone: [facility] Work Phone: Start: 09-05-2023 End: 06-97-5502dzxrsvfsyaZG Griselda Krause Work Phone: [facility] Work Phone: Start: 09-05-2023 End: 36-16-4553Iymgbbm encounter procedureDO Griselda Kuns Work Phone: [facility] Work Phone: Start: 08-15-2023 End: 60-81-9880Zapnvln encounter procedureDO Griseldaaidan Krause Work Phone: [facility] [place] Work Phone: Start: 08-02-2023 End: 87-29-8053akweoyktesKL Griselda Kuns Work Phone: [facility] Work Phone: Start: 08-02-2023 End: 00-27-6271Pfxqdkt encounter procedureDO Griselda Kuns Work Phone: [facility] Family [facility] Work Phone: Start: 87-46-8271Gzwcz abstractingNikole Mota ENVIRONMENTAL COMPLIANCE TECHNICIAN Work Phone: noms [facility] NEURO 210Start: 56-39-6918Snawas flowsheet Nikole Mota ENVIRONMENTAL COMPLIANCE TECHNICIAN Work Phone: noms BM NEUROLOGYStart: 61-06-2384Bpijrp flowsheet Nikole Mota ENVIRONMENTAL COMPLIANCE TECHNICIAN Work Phone: noms NEUROLOGYStart: 07-18-2023 End: 57-90-2679zqbnjvwzinHYLESTMemorial Hospital Westtart: 07-02-2023 End: 94-17-6640ihfwxsjkcnSsvno Kuns Other [employer] Other Start: 60-79-2729Vnnwjr outpatient visit 25 minutes Griselda Lemus Family [facility] CastaliaStart: 07-02-2023 End: 27-92-6441Sbklwpi encounter procedureDO Griseldaaidan Eckerts Work Phone: [facility] Work Phone: Start: 05-31-2023 End: 96-33-0678llbvfpymwaXrogd Kuns Other [employer] Other Start: 70-26-2584Hgxniv outpatient visit 25 minutes Griselda Lemus Family [facility] CastaliaStart: 30-21-8264Fzaerm outpatient visit 15 minutesNoétthaylie Kruse Vascular SurgeryStart: 05-30-2023 End: 19-50-1714bexmtbrvgwWR Griselda Kuns Work Phone: noaudrain [facility] center [employer] Other Start: 05-30-2023 End: 44-82-4221Kdanjqb encounter procedureDO Griselda Eckerts Work Phone: [facility] VascularStart: 05-30-2023 End: 19-96-3143Tgqbpjw encounter procedureDO Griselda Kuns Work Phone: [facility] Vascular Surgery Work Phone: Start: 05-15-2023 End: 26-88-5351cllflhylgmZtdcd Kamla Other [facility] [employer] Other Start: 13-25-7353Ernbme outpatient visit 25 minutes Lilliamnae MakigeFPG CardiologyStart: 74-69-0208Vfiyyrjhg encounterLinda CiaraG Referral CoordinatorStart: 05-15-2023 End: 84-05-6112Wmxqfyt encounter procedureDO Griselda Krause Work Phone: [facility] Cardiology Work Phone: Start: 05-07-2023 End: 34-58-8073Ooppltsfa to same day surgery centerDO Griselda Krause Work Phone: [facility]-Interventional Radiology Work Phone: Start: 05-07-2023 End: 11-46-6119gduypdljycTK Griselda Kuns Work Phone: [facility] Work Phone: Start: 05-04-2023 End: 73-11-6854dgfawxekmdMN Griselda Kuns Work Phone: [facility] Work Phone: Start: 05-04-2023 End: 68-82-1946Jenjvlp encounter procedureDO Griselda Kuns Work Phone: [facility]-CT Scan [place] Work Phone: Start: 05-03-2023 End: 38-52-5638athbyhywhyGkuboge Langenberg Other [facility] [employer] Other Start: 11-01-3940Rpzauc outpatient new 45 minutes Ruddy Pollard Vascular SurgeryStart: 38-45-4793Xeylwuyde encounter Ruddy Pollard Referral CoordinatorStart: 05-01-2023 End: 64-57-9531lyoseijvrcSqisk Kuns Other [place] [employer] Other Start: 91-42-4253Blxcjm outpatient visit 25 minutes Griselda Lemus [facility] [place]: 04-25-2023 End: 48-36-3611uahyrisafeCF Griselda Krause Work Phone: [facility] Work Phone: Start: 04-25-2023 End: 98-17-8069Zetfxpc encounter procedureDO Griselda Krause Work Phone: [facility]-Ultrasound [place] Work Phone: Start: 04-12-2023 End: 16-00-1288tozpjrrwcdLovei Kamla Other [facility] [employer] Other Start: 51-60-2664Euyxrfrsz encounterLinda AngusorogeFPG CardiologyStart: 04-11-2023 End: 21-75-9996dhyisyqwdbVlvog Kamla Other [employer] Other Start: 84-90-6083Clekoz outpatient new 45 minutesLinda AngusorogeFPG CardiologyStart: 04-10-2023 End: 85-34-8059zlzerawzzfKzhep Kuns Other [employer] Other Start: 47-41-4349Yyhrrejoa encounterBreaidan KrauseSAM Family Medicine [place]Start: 03-30-2023 End: 89-38-2074rhirwonueoQN Griselda Krause Work Phone: [facility] Work Phone: Start: 03-30-2023 End: 57-50-7066Xlosgmv encounter procedureDO Griselda Krause Work Phone: [facility]-Lab [place] Work Phone: Start: 03-21-2023 End: 48-06-1865Bwmnjsejp department patient visitDO Griselda Krause Work Phone: [facility]-Emergency Room Work Phone: Start: 03-15-2023 End: 25-73-5657gbgawmuxiyBqedr Darling Other [place] [employer] Other Start: 51-79-0753Aqfisu outpatient visit 25 minutes Griseldaaidan EckertrogeSAM Family Medicine [place]Start: 03-08-2023 End: 50-46-5119kdaskhwiclMyngk Darling Other [place] [employer] Other Start: 11-11-5511Sevyft outpatient visit 25 minutes Griseldaaidan EckertrogeSAM Family Medicine [place]Start: 02-26-2023 End: 74-42-3371Wlledjwhv department patient visitDO Griselda Krause Work Phone: [facility]-Emergency Room Work Phone: Start: 99-11-7025cyepkedfkuYb. ADAM J HEDAYA Facility:UNKNOWNStart: 12-05-2022 End: 47-08-8323pmjigzolimXjncl Kuns Other [facility] [employer] Other Start: 86-24-7223Blfgue outpatient visit 25 minutes Griselda AndrearogeSAM Family Medicine [place]Start: 11-15-2022 End: 91-28-9213gwsufsxyviCP Griselda Krause Work Phone: [facility] Work Phone: Start: 11-15-2022 End: 92-68-5694Xvubkoe encounter procedureDO Griselda Krause Work Phone: [facility]-MRI [address] Work Phone: Start: 10-27-2022 End: 49-78-0657Zpxckgsuid hospital visit by physicianArrival Time Radiology Work Phone: Radiology Pet CTComment on above:Malignant neoplasm of head, 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]Start: 10-24-2022 End: 65-72-9742lrhudnibutJP Griselda Krause Work Phone: 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]Start: 51-87-2313Yyhntizkk encounterScandie Perez PA-C Work Phone: [facility] CenterComment on above:Patient QuestionStart: 09-13-2022 End: 37-51-8497Mxcatly encounter procedureScandie Perez PA-C Work Phone: [facility] Tumor CenterComment on above:NPH (normal pressure hydrocephalus) (HCC) (Primary Dx)Start: 08-31-2022 End: 02-64-3680pxjweymkuqYonno Kuns Other [facility] [employer] Other Start: 91-05-1848Thulwu outpatient visit 25 minutes Griselda Lemus [facility] Medicine [place]Start: 08-01-2022 End: 50-19-3966aulcmdsubhEpohk Kuns Other [facility] [employer] Other Start: 77-17-9601Iknvle outpatient visit 25 minutes Griselda Lemus [facility] [place]Start: 07-17-2022 End: 26-51-4190jlzntcehkoBX Griselda Kuns Work Phone: [facility] Work Phone: Start: 07-17-2022 End: 85-39-9422Blzkihf encounter procedureDO Griselda Kuns Work Phone: [facility]-XRay [place] Work Phone: Start: 07-14-2022 End: 09-85-6244Lqwmbna encounter procedureDO Griselda Kuns Work Phone: [facility]-CT Scan [place] Work Phone: Start: 06-28-2022 End: 52-99-3600gzaedviwbyYtakwml Blades Other [facility] [employer] Other start: 07-29-1994Dvzopj outpatient new 45 minutes Trish Aleman [facility] NeurosurgeryStart: 05-26-2022 End: 77-74-5548zsrnnvnsbsEnlyb Kuns Other [employer] Other Start: 19-35-6647Cbuizw outpatient visit 25 minutes Griselda Lemus [facility] [place]Start: 05-17-2022 End: 27-58-0052xselcyjjzkTA Griselda Krause Work Phone: [facility] Work Phone: Start: 05-17-2022 End: 15-15-0264Uqpngzkjru RecurringDO Griselda Krause Work Phone: [facility]-Physical Therapy [address]Start: 23-49-4191Hfmewxwzff RecurringDO Griselda Krause Work Phone: [facility]-Physical Therapy [address] RdStart: 04-16-2022 End: 08-94-9244Yrxvdhmmu department patient visitDO Griselda Krause Work Phone: [facility]-Emergency RoomStart: 04-10-2022 End: 68-70-3886hxfhzydlfzPtibc Kuns Other [employer] Other Start: 09-59-2456Igmjhltno encounterBreaidan Lemus [facility] [place]Start: 04-06-2022 End: 60-07-4625Sfjxjxjka department patient visitDO Griselda Krause Work Phone: [facility]-Emergency RoomStart: 43-71-1256Iyvqfrngw encounterJelisa Reynolds RNHematology/OncologyComment on above:AppointmentStart: 03-22-2022 End: 09-06-0231jkedkkqiroOwkpb Kuns Other [employer] Other Start: 56-99-9528Fpuqcyxfw encounterGriselda Lemus Family [facility] [place]Start: 03-16-2022 End: 18-59-8055zlwggrguolWhvwz Kuns Other [employer] Other Start: 97-35-4526Axhvze outpatient visit 25 minutes Griselda Lemus [facility] [place]Start: 51-00-8926Seuriduxb encounterSelf [facility] Tumor CenterComment on above:Triage (Internal Referral--old) Start: 03-09-2022 End: 51-82-0742czvjfzbuskSzdgv Kuns Other [employer] Other Start: 30-63-0660Tqlhggasu encounterBrett Allan [facility] [place]Start: 03-07-2022 End: 59-75-6844vypnkaenwoBhgpv Kuns Other [employer] Other Start: 64-39-8313Xvnejyhli encounterBreaidan Lemus [facility] [place]Start: 74-12-3489Ebejkgkjf encounterBreaidan Lemus [facility] [place]Start: 03-03-2022 End: 88-34-0575nrftxmctrwQB Griselda Krause Work Phone: [facility] [employer] Other Start: 03-03-2022 End: 85-97-2582Qrcfsqehtc RecurringDO Griselda Eckerts Work Phone: [facility]-Physical Therapy [address] RdStart: 30-88-7431Ebnxnauhka RecurringDO Griselda Kuns Work Phone: [facility]-Physical Therapy [address] RdStart: 02-07-2022 End: 66-23-1019wwqcvwbqomClshx Kuns Other [facility] [employer] Other Start: 18-23-4406Uspkpugzt encounterBreaidan Lemus Family [facility] [place]Start: 01-30-2022 End: 38-39-3148ybfxwsrjjnLuwba Kuns Other [facility] [employer] Other Start: 86-77-0107Rgyvsf outpatient visit 25 minutes Griselda Lemus [facility] [place]Start: 01-12-2022 End: 38-10-2216dtliatwwltEabku Kuns Other [facility] [employer] Other Start: 33-08-2880Fclzuyiqk encounterBrett AndreasFPG Family Medicine [place]Start: 12-26-2021 End: 63-62-6750qorckzymehTrjeb Kuns Other [facility] [employer] Other Start: 44-05-7675Oahvqw outpatient visit 25 minutes Griselda AndreasFPG Family Medicine [place]Start: 12-23-2021 End: 49-68-0860laqgylejyhNkedc Kuns Other [facility] [employer] Other Start: 59-49-4736Kgeyrphoh encounterBrett AndreasFPG Family Medicine [place]Start: 12-05-2021 End: 79-63-9028ujuyefssagGezfn Kuns Other [facility] [employer] Other Start: 85-25-6445Tfpwtp outpatient visit 25 minutes Griselda AndreasFPG Family Medicine [place]Start: 91-00-2560Ckumchmjb encounterBrett AndreasFPG Family Medicine [place]Start: 11-22-2021 End: 33-51-6353bmegfqbccjDnepv Kuns Other [place] [employer] Other Start: 18-46-8336Fmjrwcpox encounterBrett AndreasFPG Family Medicine [place]Start: 96-79-9523Hbslcl outpatient visit 15 minutesGriselda Krause Work Phone: [phone]-Klxupunphyzp-Lynn Work Phone: Start: 11-09-2021 End: 07-27-7517ufxqkkeietUrnao Kuns Other [facility] [employer] Other Start: 11-67-7602Cxkijfchn encounterGriselda Lemus [facility] [place]Start: 11-08-2021 End: 46-33-2494aqfmytcipgPpnnd Kuns Other [facility] [employer] Other Start: 01-74-4557Qwvqhz outpatient visit 25 minutes Griselda KrauseAleta [facility] [place]Start: 46-16-8407Bawier consultation new/estab patient 60 minGriselda Krause Work Phone: [phone]-LxoravnOSF 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); Lung nodules; Malignant neoplasm of head, face and neck (HCC)Start: 10-27-2021 End: 88-84-0135Opycsclmrqbs consultation with Radha Cole MD Work Phone: SANDUSKYStart: 10-24-2021 End: 73-78-3206crkmzlbuprOdzqxv [employer]ens Other [employer] Other start: 18-88-4249Lkpxri outpatient new 30 minutes Sheng SchneiderMoccasin [facility] NeurosurgeryStart: 41-16-3241Oqmishafv encounter Racquel Cole MD Work Phone: Cancer Appts MCComment on above:Referral Information (Neurosurgery)Start: 10-13-2021 End: 76-12-4444ivrzblycitKpjgx Abhyankar MD Work Phone: Hematology/OncologyComment on above:Glioma of brain (HCC) (Primary Dx); Lung nodules; Primary squamous cell carcinoma of head and neck (HCC)Start: 10-13-2021 End: 61-92-4908Fybnzvw encounter Bernard Cole MD Work Phone: SANDUSKYStart: 10-06-2021 End: 43-54-5603ovodsnviuiUvivt Kuns Other [employer] Other Start: 12-08-1269Qgfdvvfmf encounterAsya Kumar RN Hematology/OncologyComment on above:ResultsStart: 10-06-2021 End: 22-47-2015Trqgftfsvt hospital visit by physicianArrival Time Radiology Work Phone: Radiology Pet CTComment on above:Malignant neoplasm of head, 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]Start: 09-29-2021 End: 46-54-5213biagemacmiEfgpe Kuns Other [employer] Other Start: 63-41-0110Bcvfzpmep encounterBrett BrooklynnAleta Chavez Primary CareStart: 09-27-2021 End: 24-40-6049lgfzafnhpzKqjov Kuns Other [employer] Other Start: 71-86-3529Caxitoayx encounterBrett BrooklynnAleta Chavez Primary CareStart: 09-19-2021 End: 06-08-7764csslzroywyIghvm Kuns Other [employer] Other Start: 62-51-0245Fzvvny outpatient visit 25 minutes Griseldaaidan OvertonG Family Medicine [place]Start: 09-12-2021 End: 10-14-1675kryimxclojBrvxr Kuns Other [facility] [employer] Other Start: 91-18-0717Bohscdpul encounterBrett BrooklynnG Family Medicine [place]Start: 09-08-2021 End: 20-50-5845nvlfbjxnypOglsh Kuns Other [facility] [employer] Other Start: 85-82-5088Xryqqedyz encounterBrett BrooklynnG Family Medicine [place]Start: 06-30-2021 End: 59-27-6052nnfzwysgzbNmnaw Kuns Other [facility] [employer] Other Start: 55-03-4690Tmfbir outpatient visit 15 minutes Griseldaaidan OvertonG Family Medicine [place]Start: 80-75-8541Edbgrnnsp encounterBrett BrooklynnG Family Medicine [place]Start: 06-29-2021 End: 33-74-7710fzfvgpdhapHiwfh Kuns Other [facility] [employer] Other Start: 50-84-4526Eepimtq evaluation of patient and reportBreaidan OvertonG Family Medicine [place]Start: 04-19-2021 End: 75-63-8442ffddandfrsMgqqk Kuns Other [facility] [employer] Other Start: 33-33-1302Lxpuziq evaluation of patient and reportBreaidan KrauseFPG Family Medicine [place]Start: 26-01-2652Ffyanjqsq encounter Griselda BrooklynnG Family Medicine [place]Start: 11-31-9004Kymoeq outpatient visit 15 minutesBrett BrooklynnG Family Medicine [place]Start: 10-01-2020 End: 81-15-4100Bwmtliz encounter procedureBrett Andreas Work Phone: [phone]-VdjqrwehtiwyamhghgXrnlq: 09-20-2020 End: 91-54-3916Edcjnhb encounter procedureBreaidan Krause[facility]Start[facility] 09[facility]2020 End: 79-07-7353Sapmijp encounter procedureGriselda Krause-XRay [facility] Procedures DateProcedureProcedure DetailPerforming ClinicianStart: 51-07-3927LVU HEAD/BRAIN WO/W Irene Cadena MD Work Phone: Start: 25-31-8923Vmiqi brachial pressure indexBreaidan Krause DO Work Phone: Start: 01-08-2025 End: 81-01-5037UYXFOKTPFFI SKIN LESIONRylee Salvador SAAVEDRA Work Phone: Start: 18-64-5870Pxhdp chest X-rayGriselda Krause DO Work Phone: Start: 71-23-2488Bslgk Strep (POC)Griselda Krause DO Work Phone: Start: 42-89-1198NJH (POC)Grsielda Krause DO Work Phone: Start: 39-07-2731MvzlawutrutilnsiaxzcbwsuifPlfhz Kuns DO Work Phone: Start: 75-20-1224Ex soft tissue neck w/contrast materialRacquel Cole MD Work Phone: Start: 48-62-2740Bk thorax w/contrast materialRacquel Cole MD Work Phone: Start: 26-53-4180Cgrac count complete auto&auto difrntl wbcMinsheldon Hagan PA-C Work Phone: Start: 95-06-0091Zfllm Interpretation of outside study Doretha Harris MD Work Phone: start: 38-71-8529M-ray of cervical spineGriselda Krause DO Work Phone: Start: 25-51-6450Clmmqkyu tomography of abdomen and pelvis with contrastBre [employer] DO Work Phone: Start: 67-39-6444MO of soft tissues of neck with contrast [employer] DO Work Phone: Start: 07-86-6034Outixzlqcbw Panel (PCR)GriseldaR[employer].com DO Work Phone: Start: 43-08-9050Vozhy chest X-ray [employer] Work Phone: Start: 49-24-8622Mwcqq brachial pressure indexBre [employer] Work Phone: Start: 53-28-1939L-ray of cervical spineBre [employer] Work Phone: Start: 48-34-6743Lksvn metabolic panel calcium total Chicho Bryan MD Work Phone: [phone]: 31-27-7042Wbuwt spine cervical 2 or 3 views Nate Alvarez MD Work Phone: [phone]: 75-44-5316PHVGB OXIMETRY, Savannah Cheek MD Work Phone: [phone]: 84-12-6107RW tomography Unspecified body region Doretha Harris MD Work Phone: [phone]: 88-21-2458Lvqckyff bldAngela M Capp CAA Work Phone: [phone]: 04-09-2024 End: 24-55-8498Rlhswg ant interbody decompress cervical belw e7Aiowvthlara Harris MD Work Phone: [phone]: 17-32-7285Zlzye typing serologic rh (d)Doretha Harris MD Work Phone: [phone]: 19-08-9810Dqvke Interpretation of outside study Doretha Harris MD Work Phone: [phone]: 45-72-0222Qfw bone density study 1/> sites axial skelDoretha Harris MD Work Phone: start: 54-24-3229Bzi routine ecg w/least 12 lds trcg only w/o i&rXiaodale Harris MD Work Phone: [phone]: 47-55-6999Xyq brain brain stem w/o w/contrast Bo Heaton PA-C Work Phone: [phone]: 81-12-7574Sl soft tissue neck w/contrast Liudmila Cole MD Work Phone: Start: 01-09-3601Me thorax w/contrast Liudmila Cole MD Work Phone: Start: 53-21-4774Mjwvh count complete auto&auto difrntl wbcRacquel Cole MD Work Phone: Start: 99-73-8015Brorpliaacw Panel (PCR)DO Griselda Krause Work Phone: Start: 89-66-1427Puzis chest X-rayDO Griselda [employer] Work Phone: Start: 36-24-1171Iczcx Interpretation of outside study Ayah Gross MD Work Phone: Start: 99-85-5925Bfzsj brachial pressure indexDO Griselda [employer] Work Phone: Start: 04-83-6810Pebrv limb angiographyDO Griselda Cubbyroge Work Phone: Start: 59-66-4610LY angiography of headDO Griselda [employer] Work Phone: Start: 77-00-5644LQ angiography of neck vesselsDO Griselda [employer] Work Phone: Start: 11-98-6106Btiai volume recorder pneumoplethysmographyDO Griselda Cubbyroge Work Phone: Start: 43-63-0815EZXS Antigen (LFIA)DO Griselda Krause Work Phone: Start: 37-76-2328EM lumbar spine wo conDO Griselda Krause Work Phone: Start: 47-70-6970EX pre/post mri xrayDO Griselda Krause Work Phone: Start: 10-11-5626Nv thorax w/contrast Liudmila Cole MD Work Phone: Start: 19-15-6509Jc soft tissue neck w/contrast Liudmila Cole MD Work Phone: Start: 75-96-7140Gualr count complete auto&auto difrntl wbcRacquel Cole MD Work Phone: Start: 37-79-9629Zfr brain brain stem w/o w/contrast Chai Perez PA-C Work Phone: Start: 27-63-1617PC of head without contrastDO Griselda Krause Work Phone: Start: 23-59-0536Dwiop chest X-rayDO Griselda Krause Work Phone: Start: 77-95-5282AD cervical spine without contrastDO Griselda Krause Work Phone: Start: 63-94-3974Xadqi depression screening assessment Racquel Cole MD Work Phone: Start: 56-70-4670Vf soft tissue neck w/contrast Liudmila Cole MD Work Phone: Start: 69-59-2825Zk thorax w/contrast Liudmila Cole MD Work Phone: Start: 90-43-5428Hvjti count complete auto&auto difrntl wbcRacquel Cole MD Work Phone: Start: 07-91-7389Dceow depression screening assessment Asya Engelson RNStart: 96-83-0777Ziesv chest X-rayGriselda Robertsxcision of melanomaBreaidan Krause Work Phone: Plan of Treatment DateCare ActivityDetailAuthorStart: 66-82-2301EPK Vaccine (1 - 1-dose 75+ series)RSV Vaccine (1 - 1-dose 75+ series)[facility] 04-10[facility]2027 Diabetes ScreeningDiabetes ScreeningCleveland Clinic Union Hospitaltart: 48-05-7439Smnrzqgq ScreeningDiabetes ScreeningCleveland Clinic Union Hospitaltart: 52-13-7958Mhqwdnxbz for osteoporosisBone Density [facility]Start: 01-08-2026 End: 66-95-1398Fekjwjk encounter procedureNOMS SWS DERMStart: 04-30-2025 End: 97-83-8256Fojqmsom Isgqcfg4804/30/2025 2:00 PM EST Clinical Support [facility] [address] [phone] Oziel Cadena MD [address] [facility] [address] [address] [place] [address] [facility] NeurologyStart: 04-06-2025 End: 51-77-0417Opaedcb encounter eghnqwprt45/20/2025 9:30 AM EDT Office Visit [facility] [address] [place] [address] [address] [place] [address] Doretha Harris MD [address] [place] [address] [facility]Start: 03-18-2025 End: 79-63-3463Rhaxaimo Yuspnar2803/18/2025 2:20 PM EDT Clinical Support [facility] [address] [facility] [address] [place] [phone] Oziel Cadena MD [address]man [address] [place] [address] [facility] NeurologyStart: 03-18-2025 End: 31-45-4286Bywphrbp Nrqnavr6703/18/2025 11:30 AM EDT Clinical Support NOMRoge [facility] [address] [place] [phone] Oziel Cadena MD [address] [facility] [address] [address] [place] [address] ArrivedNOMS [place] NeurologyComment on above:ArrivedStart: 88-62-3401Svaow brachial pressure indexSamaritan North Health Centertart: 36-64-5947YXFYR-19 Vaccine ( season)COVID-19 Vaccine ()[facility] HealthcareStart: 61-46-5234Qtalqbgtk vaccinationNOMS HealthcareStart: 02-04-2025 End: 38-52-5886Dapbpjml SupportNOMS SWS NEURComment on above:ArrivedStart: 01-08-2025 End: 60-07-9305Adngqpw encounter procedureNOMS SWS DERMComment on above:Arrived Start: 01-01-2025 End: 63-81-6586Uofdbme encounter muskfhsnd57/17/2025 10:30 AM EDT Office Visit [facility] [address] [place] [phone] Anahi Franco PA [address] [place] [phone] [facility] SWS DERMStart: 12-24-2024 End: 42-15-2820Uazkijfg SupportNOMS SWS NEURComment on above:ArrivedStart: 11-12-2024 End: 74-78-2753Zbsrypxb SupportNOMS SWS NEURComment on above:ArrivedStart: 11-07-2024 End: 58-09-8952Mxokyu-up encounterHematology/OncologyComment on above:[address] and labStart: 09-38-2694QuqrcyicfOhiohealth [facility] Start: 11-03-2024 End: 63-94-2040Eifyletwcybmj metabolic 2000 panel - Serum or PlasmaCOMPREHENSIVE METABOLIC PANEL Lab Routine Primary squamous cell carcinoma of head and neck (HCC) Expected: 11/03/2024 (Approximate), Expires: 02/02/2025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) Expected: 11/01/2024 (Approximate), Expires: 11/01/2024[facility] ClinicComment on above:Expected: 11/01/2024 (Approximate), Expires: 11/01/2024Start: 11-01-2024 End: 94-81-5413Wehyzzxnybrmu metabolic 2000 panel - Serum or PlasmaCOMPREHENSIVE METABOLIC PANEL Lab Routine 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) Expected: 11/01/2024 (Approximate), Expires: 11/01/2024[facility] on above:Expected: 11/01/2024 (Approximate), Expires: 11/01/2024Start: 11-01-2024 End: 65-98-5405CS Chest W contrast IVCT CHEST W IVCON Radiology Routine 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 Work Phone: Comment on above:Expected: 11/01/2024 (Approximate), Expires: 12/01/2024Start: 00-65-5343W-ray of cervical spineXR cervical spine 2V [facility] Centertart: 72-27-0168KQ Cervical spine 2 Views [facility]: 42-28-1938TCHPFCEU SCREENDIABETES SCREEN [facility]: 09-29-2024 End: 78-37-0826Oyvbday encounter aproatwnp75/14/2025 11:00 AM EDT Office Visit [facility] [address] [facility] [address] [place] [address] Doretha Harris MD [address] [facility], [address] [place] [address] [facility]: 09-11-2024 End: 61-54-4026Chxzxtgi Zsxpmdo1809/11/2024 10:40 AM EDT Clinical Support [facility] [address] [place] [address] Oziel Cadena MD [address] [facility] [address] [place] [address] [facility]: 05-50-2273Aybya brachial pressure indexUS ankle/arm indicesSamaritan North Health Centertart: 07-31-2024 End: 16-79-7955Fwiymjxh SupportNOMS SWS NEURComment on above:ArrivedStart: 07-02-2024 End: 12-81-9417Gvmorucv SupportNOMS SWS NEURComment on above:ArrivedStart: 06-30-2024 End: 35-53-2593MI Cervical spine 2 or 3 ViewsXR cervical spine 2-3 views Imaging Routine Status post cervical spinal fusion Expected: 06/30/2024, Expires: 06/30/2025[facility] Service Area Work Phone: Comment on above:Expected: 06/30/2024, Expires: 06/30/2025Start: 06-30-2024 End: 87-52-2938Grngqtq encounter procedureSelect Medical [facility] DublinStart: 05-21-2024 End: 16-36-6096Iizevudv Edibtxn7505/21/2024 2:00 PM EST Clinical Support [facility] [address] [place] [address] Oziel Cadena MD [address] [facility] [address] [place] [address] ArrivedNOMS SWS NEURComment on above:ArrivedStart: 05-16-2024 End: 56-10-6284Luyrvmf encounter kgglcriex72/29/2024 9:15 AM EST Office Visit [facility] [address] [place] [address] [address] [place] [address] Doretha Harris MD [address] [facility],[address] [place], [place] [phone] [facility]: 05-02-2024 End: 78-47-2726Lyibuuj encounter procedureSt[facility] Start: 04-30-2024 End: 28-61-0342UR Cervical spine 2 or 3 ViewsXR cervical spine 2-3 views Imaging Routine Cervical radiculopathy Status post cervical spinal fusion Expected: 04/30/2024, Expires: 04/30/2025[facility] Service Area Work Phone: Comment on above:Expected: 04/30/2024, Expires: 04/30/2025Start: 04-30-2024 End: 40-39-4080Ljvoiwm encounter yaarpbrgl07/13/2024 1:00 PM EST Office Visit [facility] [address] [facility] [address] [place] [address] Solomon Narayanan PA-C [address] [place] [address] [facility]: 04-09-2024 End: 19-11-4947Qsxxpdwap to same day surgery hbozwe9004/09/2024 7:45 AM EDT - 04/09/2024 12:[address] [place] [address] [place] [address] Doretha Harris MD [address] [facility], [address] [place], [place] [phone] Fusion Spine Anterior Cervical and Discectomy C5-6, C6-7 [42826 (CPT )][facility] [place] ORComment on above:Fusion Spine Anterior Cervical and Discectomy C5-6, C6-7 [89060 (CPT )]Start: 04-09-2024 End: 59-66-5839Thmvci ant interbody decompress cervical belw f3Mxyxlp Spine Anterior Cervical and Discectomy Cervical radiculopathy Senile osteoporosis 47:45 AM EDTVirtual [facility] [place] ORStart: 27-19-4227Qxcnbqyfja hospital visit by zxpwmmyfj67/23/2024 7:45 AM EDT Hospital Encounter [facility] [place] [address] [place] [address] Doretha Harris MD [address] [facility], [address] [place] [address] [facility] [place] ORStart: 02-73-6793OKvP/Tdap/Td Vaccines (2 - Td or Tdap)DTaP/Tdap/Td Vaccines (2 - Td or Tdap)[facility]Start: 59-57-4061Vxxdt microalbumin profileDTaP,Tdap,Td Vaccine (2 - Td or Tdap)[facility]: 03-11-2024 End: 57-57-7080Kmixcny encounter nuiqpviww73/24/2024 11:30 AM EDT Office Visit [facility] [address] [facility] [address] [address] Solomon Narayanan PA-C [address] [place] [address] [facility] HospitalStart: 12-44-2793Gtqgsyibq vaccinationInfluenza Vaccine (#1)[facility] HealthcareComment on above:Postponed from 02/16/2023 (Patient Refused)Start: 02-27-2024 End: 21-94-9747Mzhdambhf to same day surgery centerSt. [facility] [place] ORComment on above:Anterior Cervical Discectomy and Fusion C5-6, C6-7 [68326 (CPT )]Start: 02-27-2024 End: 61-80-4633Ulhbkz ant interbody decompress cervical belw r2Xoowici [facility] [place] ORStart: 18-58-0267Tykvhvrhfd hospital visit by physicianSt. [facility] Rehabilitation Center [place] ORStart: 18-75-4907XULXE-19 Vaccine ( season) COVID-19 Vaccine ( season)[facility] HospitalSta[facility]urn: 56-52-8175Heduz-19 Vaccine ( season)Covid-19 Vaccine ( season)[facility]: 86-44-2691Jfzlr-19 Vaccine ( season) Covid-19 Vaccine ( season)[facility]: 17-45-0066Drxqjwiez vaccinationSamaritan North Health Center: 02-15-2024 End: 19-60-3693Kdhbgbw encounter /30/2024 9:00 AM EDT Office Visit [address] [place] [address] Vincenzo Sanchez MD [address] [place] [address] [address], [address] [place] [address] [facility]: 02-13-2024 End: 79-96-1662Bwglcxh encounter ldquvfyht74/28/2024 11:00 AM EDT Appointment [facility] [address] [place] [place] [address] UKColor[facility] Institute [facility] Fort Logantart: 02-03-2024 End: 24-22-1423Qgeupiab and Metabolites,SNicotine and Metabolites,S Lab Routine Cervical radiculopathy Senile osteoporosis Expected: 02/03/2024 (Approximate), Expires: 01/02/2025[facility] Work Phone: Comment on above:Expected: 02/03/2024 (Approximate), Expires: 01/02/2025Start: 01-03-2024 End: 55-54-9985OEA Skeletal system.axial Views for bone densityXR DEXA bone density axial skeleton w VFA Imaging Routine Senile osteoporosis Expected: 01/03/2024,Expires: 01/02/2025[facility] Service Area Work Phone: comment on above:Expected: 01/03/2024, Expires: 01/02/2025Start: 01-03-2024 End: 95-97-0222TM Cervical spine 6 ViewsXR cervical spine complete 6+ views Imaging Routine Cervical radiculopathy Expected: 01/03/2024, Expires: 01/02/2025 [facility] Work Phone: Comment on above:Expected: 01/03/2024, Expires: 01/02/2025Start: 01-03-2024 End: 66-60-9653Iqnevkq encounter pwogfipid58/18/2024 1:30 PM EDT Office Visit [facility] [address] [place] [phone] Doretha Harris MD [address] [facility], [address] [phone] [facility]: 12-13-2023 End: 80-11-7685IO Brain WO and W contrast IVMR brain w and wo IV contrast Imaging Routine Pontine glioma (Multi) Expected: 12/13/2023 (Approximate), Expires: 12/12/2024[facility] Service Area Work Phone: comment on above:Expected: 12/13/2023 (Approximate), Expires: 12/12/2024Start: 12-13-2023 End: 29-88-7836Tgguvbb encounter procedureJohnson City Medical Centertart: 09-28-2023 End: 61-47-9508Vqqdnhk encounter aalboawxg76/12/2024 10:15 AM EDT Office Visit [facility] [address] [place] [address] [place] [address] Department [place] [address] [facility]: 39-13-6285Tyhco brachial pressure indexSamaritan North Health Centertart: 08-30-2023 End: 70-91-8070Ljwqacm encounter iyjguvuqg05/14/2024 9:40 AM EDT Office Visit [facility] [address] [facility] [address] [place] [address] Nikole Mota NP [address] [place] [address] [facility]Start: 07-26-2023 End: 16-43-1621Ktzswae encounter lpupoyzbg77/08/2024 1:30 PM EST Procedure Visit [facility]O [address] [place] [address] Nikole Mota ENVIRONMENTAL COMPLIANCE TECHNICIAN [address] [place] [address] [facility] NEURO 210Start: 07-19-2023 End: 93-36-8675Ybihlwob Cqvikkt3607/19/2023 1:30 PM EST Clinical Support [facility] [address] [place] [address] Nikole Mota, ENVIRONMENTAL COMPLIANCE TECHNICIAN [address] [facility] [address] [phone] Cervical dystoniaNOMS SWS NEURComment on above: Cervical dystoniaStart: 48-51-2582Uzajtkiqdi Health ScreeningBehavioral Health ScreeningCleveland Clinic Union Hospitaltart: 08-97-3117Glxvm volume recorder pneumoplethysmographyUS arterial pvr rest [facility] Start: 32-17-4279EtkfoalgvSamaritan North Health Centertart: 23-44-0194MoasdccrvSamaritan North Health Centertart: 83-60-2463Rkgcd volume recorder pneumoplethysmographyUS arterial pvr rest [facility] Start: 88-40-9254EEHRQ-19 Vaccine ( season)COVID-19 Vaccine ( season)[facility]: 36-92-4323Hnnacqrxc vaccinationINFLUENZA (Season Ended)[facility]: 26-12-7677JYN High Risk: (Elderly (60+) or Population) (1 - Risk 60-74 years 1-dose series)RSV High Risk: (Elderly (60+) or Population) (1 - Risk 60-74 years 1-dose series)[facility]: 06-92-1573HBN patients and/or patients aged 60+ years (1 - 1-dose 60+ series)RSV patients and/or patients aged 60+ years (1 - 1-dose 60+ series) [facility]: 78-66-6047EBG Vaccine (1 - 1-dose 60+ series)RSV Vaccine (1 - 1-dose 60+ series)[facility]art: 10-30-2022 End: 00-24-8320ZEW W Auto Differential panel - BloodCBC + DIFF Lab Routine 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 Work Phone: Comment on above:Expected: 10/30/2022 (Approximate), Expires: 10/30/2022Start: 10-30-2022 End: 79-16-6567Cq soft tissue neck w/contrast materialCT NECK SOFT TISSUE W IVCON Radiology Routine Malignant neoplasm of head, face and neck (HCC) Expect ed: 10/30/2022 (Approximate), Expires: 11/29/2022[facility] Work Phone: Comment on above:Expected: 10/30/2022 (Approximate), Expires: 11/29/2022Start: 10-30-2022 End: 05-68-3397As thorax w/contrast materialCT CHEST W IVCON Radiology Routine Lung nodules Expected: 10/30/2022 (Approximate), Expires: 11/29/2022[facility] Work Phone: Comment on above:Expected: 10/30/2022 (Approximate), Expires: 11/29/2022Start: 09-70-2434Vnxgy depression screening assessment DEPRESSION SCREENINGCleveland Clinic Union Hospitaltart: 06-58-2226Gwkshij CultureAerobic CultureSamaritan North Health Centertart: 78-60-6459Gixoppanp Culture Anaerobic CultureSamaritan North Health Centertart: 90-42-3756Hytpcthrthf observation [Identifier] in Unspecified specimen by Gram stainSamaritan North Health Centertart: 19-77-9843Ztnbzcgbdwahg fluid cultureSamaritan North Health Centertart: 07-17-2022 End: 97-97-6659RtppiqnueSamaritan North Health Centertart: 41-13-8751SzgzydczuSamaritan North Health Centertart: 77-65-8290BVHCJKWJQO ASSESSMENTDEPRESSION ASSESSMENTCleveland Clinic Union Hospitaltart: 70-96-2713Hagix chest X-rayXR ribs LT min 3V w CXR1V*[facility] Centertart: 10-65-0610BZ Unspecified body region ViewsSamaritan North Health Centertart: 73-49-9242Ixfmxgtzz vaccinationCleveland Clinic Union Hospitaltart: 46-06-2371Xmygn depression screening assessmentDEPRESSION SCREENINGCleveland Clinic Union Hospitaltart: 72-41-4082DVLND-19 VACCINE (3 - Booster for Pfizer series)COVID-19 VACCINE (3 - Booster for Pfizer series) [facility]: 21-64-2870CQUALIVIMD ASSESSMENTDEPRESSION ASSESSMENT [facility]: 60-20-8507TVFOO-19 VACCINE (3 - Booster for Pfizer series)COVID-19 VACCINE (3 - Booster for Pfizer series)[facility]: 12-15-9827QNBHUDZS CANCER SCREENING DISCUSSIONPROSTATE CANCER SCREENING DISCUSSIONCleveland Clinic Union Hospitaltart: 56-45-1724Paaolxcd specific antigen measurement Prostate Cancer Screening DiscussionCleveland Clinic Union Hospitaltart: 2012 Pneumococcal Vaccine: 50+ (1 of 1 - PCV)Pneumococcal Vaccine: 50+ (1 of 1 - PCV) [facility]: 96-85-3469Rtmbmrrxu for malignant neoplasm of lungLung Cancer ScreeningUnCleveland Clinic Medina HospitalStart: 16-84-1991MNUCWIVE VACCINE (1 of 2)SHINGRIX VACCINE (1 of 2)[facility]: 55-93-8101Piyvgb Vaccines (1 of 2)Zoster Vaccines (1 of 2)[facility] Start: 67-83-9905QSFTZHUDZ (FIT-DNA)COLOGUARD (FIT-DNA)[facility]: 87-68-4228CwghngyzaqjTIWRICDCAZSJrqigkgaj ClinicStart: 95-90-3852MJAZTTLLGP CANCER SCREENINGCOLORECTAL CANCER SCREENINGCleveland Clinic Union Hospitaltart: 69-25-3326CQ COLONOGRAPHYCT COLONOGRAPHYCleveland Clinic Union Hospitaltart: 10-91-6427TFCEE OCCULT BLOOD FECAL OCCULT BLOODCleveland Clinic Union Hospitaltart: 49-89-5798Yojulgvm specific antigen measurementProstate Cancer Screening DiscussionCleveland Clinic Union Hospitaltart: 11-25-2007 Screening for malignant neoplasm of colonCleveland Clinic Union Hospitaltart: 11-25-2007 SIGMOIDOSCOPYSIGMOIDOSCOPYCleveland Clinic Union Hospitaltart: 31-13-3494Bgter panelLipid ScreeningCleveland Clinic Union Hospitaltart: 84-69-7639RTRZZ SCREENLIPID SCREENCleveland Clinic Union Hospitaltart: 96-77-4219Wzavhqhxt A Vaccines (1 of 2 - Risk 2-dose series) Hepatitis A Vaccines (1 of 2 - Risk 2-dose series)[facility]: 30-09-1782Yargnmopwyfm vaccinationPneumococcal Vaccine (1 of 2 - PCV)[facility]: 13-56-2472Wkdmd microalbumin profileDTAP,TDAP,TD (1 - Tdap)[facility]: 83-83-6313Gtomngn Screening Anxiety ScreeningCleveland Clinic Union Hospitaltart: 30-12-5408Crljcjozwa ScreeningDepression ScreeningDayton Children's Hospitalrt: 94-65-4191Pgjzaoaz mellitus screeningDiabetes ScreeningSamaritan North Health Center: 11-82-0992ELRTLRHIS C SCREENING HEPATITIS C SCREENINGCleveland Clinic Union Hospitaltart: 14-82-0116Fblrqtgsj C screening Hepatitis C ScreeningSamaritan North Health Center: 56-21-8366FFI SCREENINGHIV SCREENINGCleveland Clinic Union Hospitaltart: 01-06-2650YCW screeningHIV ScreeningDayton Children's Hospitalrt: 79-97-4922Xhfyseltlqdn Vaccine: Pediatrics (0 to 5 Years) and At-Risk Patients (6 to 64 Years) (1 of 2 - PCV)Pneumococcal Vaccine: Pediatrics (0 to 5 Years) and At-Risk Patients (6 to 64 Years) (1 of 2 - PCV)[facility]: 80-97-4436LFH Vaccines (1 of 1 - Standard series)MMR Vaccines (1 of 1 - Standard series)[facility]: 87-53-0567Znoyng wellness visitWelcome to Medicare Visit [facility]: 32-04-1549VNJ screeningHIV Screening [facility]: 66-40-9682Veofv panelLipid Panel [facility]: 96-92-0329Llhtbeksd for malignant neoplasm of colonNOSSM RehabStart: 72-12-4170Prfruiwvu for osteoporosisBone Density ScanUnAultman Orrville Hospital: 57-35-2419Ajruwk Adult PhysicalYearly Adult PhysicalDayton Children's HospitalAnkle brachial pressure indexOhiohealth Riverside Methodist HospitalBacteria identified in Cerebral spinal fluid by CultureCSF CULT + STAIN Microbiology Routine NPH (normal pressure hydrocephalus) ([facility]) Ordered: 09/13/2022[facility] Work Phone: Comment on above:Ordered: 09/13/2022acteria identified in Unspecified specimen by Aerobe cultureOhiohealth Riverside Methodist HospitalBacteria identified in Unspecified specimen by Anaerobe cultureOhiohealth Riverside Methodist Hospital End: 86-03-2479Rjagc metabolic 2000 panel - Serum or PlasmaBasic metabolic panel Lab Routine Morning draw (Lab) for 3 Occurrences starting 04/10/2024 until , 1 completedDayton Children's Hospital Work Phone: Comment on above:Morning draw (Lab) for 3 Occurrences starting 04/10/2024 until 04/12/2024, 1 completed End: 78-20-5852LCM panel - Blood by Automated countCBC Lab Routine Morning draw (Lab) for 3 Occurrences starting 04/10/2024 until 04/12/2024, 1 completed [facility] Work Phone: Comment on above:Morning draw (Lab) for 3 Occurrences starting 04/10/2024 until 04/12/2024, 1 completedCell count panel - Cerebral spinal fluidCSF CELL COUNT Lab Routine NPH (normal pressure hydrocephalus) ([facility]) Ordered: 09/13/2022[facility] Work Phone: Comment on above:Ordered: 09/13/2022ell count, cerebrospinal fluidOhiohealth Riverside Methodist HospitalComprehensive metabolic 2000 panel - Serum or PlasmaOhiohealth Riverside Methodist HospitalComprehensive metabolic 2000 panel - Serum or PlasmaOhiohealth Riverside Methodist HospitalComprehensive metabolic 2000 panel - Serum or PlasmaOhiohealth Riverside Methodist Hospital End: 51-11-3175Hvfweyvhrc Pulse oximetry, In Phase 1Continuous Pulse oximetry, In Phase 1 Respiratory Care Routine Continuous until discontinued starting 04/09/2024[facility] Service Area Work Phone: Comment on above:Continuous until discontinued starting 04/09/2024Enolase.neuron specific [Mass/volume] in Serum or Plasma by ImmunoassayOhiohealth Riverside Methodist HospitalFungus identified in Unspecified specimen by CultureOhiohealth Riverside Methodist HospitalGlucose [Mass/volume] in Cerebral spinal fluidOhiohealth Riverside Methodist HospitalGlucose [Mass/volume] in Serum or PlasmaPOCT Glucose Point of Care Testing - Docked Device Routine As needed (Lab) until discontinued starting 04/09/2024[facility] Service Area Work Phone: comment on above:As needed (Lab) until discontinued starting 04/09/2024 End: 04-18-3671Dvkpywhsu spirometry InstructIncentive spirometry Instruct Respiratory Care Routine Once for 1 Occurrences starting 04/09/2024 until 04/09/2024[facility] Work Phone: Comment on above:Once for 1 Occurrences starting 04/09/2024 until 04/09/2024IR LP FOR DRAINAGE (PRESSURE)IR LP FOR DRAINAGE (PRESSURE) Radiology Routine NPH (normal pressure hydrocephalus) (HCC) [facility]: 3CSt[facility] Work Phone: Comment on above:Ordered: 09/13/2022 Meningitis+Encephalitis pathogens DNA and RNA panel - Cerebral spinal fluid by JER with non-probe detectionOhiohealth Riverside Methodist Hospital End: 68-42-6472Gyb brain brain stem w/o w/contrast materialMRI BRAIN WO/W IVCON Radiology Routine 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HCC) 1 Occurrences starting 09/20/2022 until 4CSt[facility] Work Phone: Comment on above:1 Occurrences starting 09/20/2022 until 10/20/2023atient EducationCleveland Clinic Lutheran Hospital Ctr Work Phone: Patient referralCleveland Clinic Lutheran Hospital Ctr Work Phone: Protein [Mass/volume] in Cerebral spinal fluid [facility] End: 52-24-4792Pgjwzrgz Catheter RemovalUrethral Catheter Removal Procedures Routine Once for 1 Occurrences starting 04/09/2024 until 04/09/2024[facility] Work Phone: Comment on above:Once for 1 Occurrences starting 04/09/2024 until 04/09/2024Virus identified in Unspecified specimen by Culture [facility] End: 63-26-7123RO Cervical spine 6 ViewsNEW [facility]ISE [facility] Service Area Work Phone: comment on above:Once for 1 Occurrences starting 02/13/2024 until 02/13/2024XR Chest 2 ViewsXR chest 2 views Imaging Routine Cervical radiculopathy Senile osteoporosis 02/13/2024 11:10 AM [facility] Work Phone: XR [facility] 2 [facility]Co[facility] Immunizations Immunization DateImmunizationNotesCare PyrzjucfFbdjnwvv36-30-0862ZXPXY-50 Vaccine Pfizer - Documentation Purposes OnlyBrett Kuns Other [facility]07-15-2021COVID-19 Vaccine Pfizer - Documentation Purposes OnlyBrett Kuns Other [facility]08-08-2016KENALOG - 10 mgBrett Kuns Other [employer] Other 08914894-13-3029Jikoktq per 15 mgBrett Kuns Other [employer] Other 09520817-80-6814rrjcpha toxoid, reduced diphtheria toxoid, and acellular pertussis vaccine, adsorbedBrett Kuns Other [employer] Other Payers DatePayer CategoryPayerPolicy [id number] [id number] 2024Medicare [id number] [id number] Care (Private)[facility] [id number].9.240893.717007.82601-16-5979Hfbikto Health [id number] 2.16.840.7.602856.69454724-78-1716Ivyosxi Health InsuranceCINCINNATI [facility] CHOICE PLUS [employer]WORK GENERIC [id number] 2021-Present [phone] [address] [place] [address] [id number] 2019MedicaidCARESOURCE MEDICAID [facility] MEDICAID [id number] 2019-Present [phone] [address] [place] [address] [id number] 2019Medicaid1.2.840.381637.1.1[id number] Health Insurance1.2.840.547350.1.13.159.2.7.3.121093.30635-52-9869Nhhdtge [id number] [id number] 2.16.840.6.90934[id number] 2.16.840.1.313404.3.57[id number] 2.16.840.1.972402.3.57[id number] 2.16840.1.767316.3.57[id number] 2.16.840.1.202728.3.57[id number] 2.16840.1.793778.3.57[id number] 2.16840.1.139545.3.57[id number] 2.840.1.733286.3.57[id number] 2.16840.1.510756.3.57[id number] 2.16840.1.681038.3.579.2.514447-02-3463Hgjzpgb05891550 2.16840.1.699369.3.579.[id number] 2.16840.1.746865.3.57[id number] 2.16840.1.775899.3.57[id number] 2.16840.1.634867.3.57[id number] 2.16840.1.665009.3.57[id number] 2.16.840.1.366784.3.579.[id number] 2.16.840.1.431039.3.57[id number] 2.16.840.1.633675.3.57[id number] 2.16.840.1.551686.3.57[id number] 2.16.840.1.051526.3.57[id number] 2.16.840.1.967096.3.57[id number] 2.16.840.1.067746.3.57[id number] 2.16.840.1.966760.3.579.2.163774-53-8984Fdvfzrl63745264 2.16.840.1.270910.3.57[id number] 2.16.840.1.355400.3.579.2.27[id number] 2.16.840.1.314439.3.579.2.190334-90-9382Ajhbpyj6178724 2.16.840.1.517506.3.579.[id number] 2.16.840.1.295374.3.579.2.607233-31-9298Ywhitwx6558433 2.16.840.1.300809.3.579.[id number] 2.16.840.1.431265.3.579.2.369811-45-8404Nhdryms5438869 2..840.1.767042.3.57[id number] 2..840.1.863378.3.579.[id number] 2.0.1.763088.3.579.[id number] 2.0.1.197776.3.57[id number] 2..1.911993.3.57[id number] 2..1.397127.3.57[id number] 2..1.659388.3.57[id number] 2.0.1.760247.3.579.2.196Private Health [id number] 3qb714f4-7565-69pt-blnj-[id number] g96c205s-gdt4-5n40-x0j0-[id number] 2.840.1.60224[id number] 2.840.1.687898.3.579.2.531 [id number] 2.840.1.1[id number] 2.840.1.4308[id number] 2.840.1.120352.3.579.2.531 [id number] 2.840.1.4[id number] 2.16.840.1.9[id number] 2.16.840.1.159697.3.579.2.531 [id number] 2.16.840.1.105509.3.579.2.531 Social History DateTypeDetailFacilityStart: 04-29-2018 End: 87-16-8971Zjytcbh smoking status NHISSmoker (finding)[facility]: 26-11-1082Vda [facility]: 87-91-5971Kqnjlcj smoking status NHISEx-smokerCleveland Clinic Union Hospitaltart: 06-18-1973 History of tobacco useCigarette SmokerCleveland Clinic Union Hospitaltart: 10-16-2019 End: 15-62-9693Brpgvbuxqo smoked current (pack per day) - Reported1.5C[facility] ClinicStart: 10-16-2019 End: 62-78-6967Hkjzyrb use and exposureSmokeless tobacco non-userCleveland Clinic Union Hospitaltart: 10-14-2020 End: 37-53-9328Mrvaefy intakeEx-drinker (finding)[facility]tart: 48-23-5482Rkoctjj SDOH Alcohol Commentquit 2002[facility] Hospitalt[facility]: 10-16-2019 Tobacco Commentquit smoking 01/2019[facility]: 96-69-0963Hex Assigned At [facility] CenterNot on fileC[facility] Clinic Union Hospitaltart: 10-03-2021 End: 92-49-4591Akfncnkn to SARS-CoV-2 (event)Not sureCleveland Clinic Union Hospitaltart: 07-03-2023 End: 41-71-6257Qoi Assigned At [facility] EnterpriseStart: 03-10-2022 End: 10-54-0263Asznuhvp to SARS-CoV-2 (event)Unable to assessMercy Health St. [facility] Work Phone: Start: 12-28-2022 End: 54-25-1632Jevwq SmokerHIGHLAND RIDGE [facility]OSP[facility] EnterpriseStart: 37-55-1235Qozfbad Comment6-10 cigarettes/dayNOMS HealthcareStart: 91-57-1472[place] identityIdentifies as male gender (finding)[facility] HealthcareStart: 88-54-0075Juxxnq orientationHeterosexual (finding)NOMS HealthcareTobacco smoking status NHISTobacco smoking consumption unknownDayton Children's Hospital Work Phone: Start: 10-05-2023 End: 67-07-2611Gmdmxwise beverage intakeLifetime non-drinker (finding)[facility] Work Phone: Start: 94-71-9591Iadtq Depression Screening Assessment 2Cleveland ClinicHow often to you have a drink containing alcohol?Never [facility] HospitalIn the past 12 months, was there a time when you were not able to pay the mortgage or rent on time?NoDayton Children's Hospital Work Phone: Start: 04-28-2024 End: 51-84-1541SkqUbje (finding)[facility] HospitalNEGATED: Highlighted rowStart: NINFHistory of tobacco usePassive smokerUnCleveland Clinic [facility] Work Phone: Medical Equipment Procedure CodeEquipment CodeEquipment Original TextEquipment IdentifierDates Angiogram, lower extremity, leftMultiple peripheral artery stent, bare-metal [id number] FDAStart: 81-77-1066Gmnxdcqhz, Triad Lordotic 6 X 11 X 14 - [id number] - [id number]: 04-09-2024 Allograft, Triad Lordotic 6 X 11 X 14 - [id number] - [id number]: 31-94-9381Xkebu, Acp, 1.6v, 2 Level, 34mm - [id number]: 69-56-8744Ycgvv, Acp, Self Drill, 3.5 X 17mm, Variable - [id number] Start: .5 X 19mm [id number]: 62-83-2762Ftqhlcq on above: Description: per bill only jdr 04/10 Goals DatePatient GoalDesired Activity/StatePersonal health goal Functional Status EntlZeisbzoqqrZvjditCextusmq14-82-5540Ptnmjvv Health Questionnaire 2 item (PHQ- 2) [Reported][facility] Work Phone: 1(857) 101-41420164737-65-6309XKF-4 quick depression assessment panel [Reported.PHQ][facility] Work Phone: Clinical Notes 11-03-2008 to 03-24-2025 Note Date & WttsDslbMmnxfkdd95-10-5407 NoteNeurosurgery Consult Chief Complaint: Neck and shoulder pain. History of Present Illness: Shantel Melendez is a 64 y.o. male who presents in kind referral from [facility] for the management to discuss placement of a cervical spinal cord stimulation system. He has a history of neck and left upper extremity pain which has been present for at least 10 years. It is gradually progressed and had been associated with pain and numbness with tingling in the 4th and 5th digits of left hand. He had been evaluated by neurosurgery at [facility] and had been found to have cervical [...] spinal cord stimulation by Dr. Ramsey using [employer] hardware. This resulted in a very substantial [...] and Plavix after a prior PCTA. His medical health researcher had furnished clearance for him to be [...] Resource Strain: Low Risk (04/09/2024) [facility] Overall Financial Resource Strain (CARDIA) Difficulty of Paying Living Expenses: Not hard at all Food Insecurity: Not on file Transportation Needs: No Transportation Needs (04/09/2024) [facility] PRAPARE - Transportation Lack of Transportation (Medical): [...] Housing Stability: Low Risk (04/09/2024) [facility] Housing Stability Vital Sign Unable to Pay [...] higher function appears intact. (more content not included)...[facility]10-01-2025 History of Present illness Narrative* Oziel [...] in all four extremities, including at least solderer assembly repair, finger abductors, biceps, triceps, deltoid, toe flexors [...] feeling hungover or groggy. documented in this [facility]09-04-2025 Evaluation note* Author Shilpi Lantigua [facility] 2024 5:18pmSooner if needed, the ER if concerns,The above note written by Shilpi Lantigua LPN acting as human recorder, note dictated by Dr. Griselda Krause [facility] Work Phone: 1(399) 778-543909-04-2025 Evaluation note* Author Shilpi Lantigua [facility] 2024 5:18pmSooner if needed, the ER if concerns,The above note written by Shilpi Lantigua LPN acting as human recorder, note dictated by Dr. Griselda Krause Author Curtis Covarrubias [facility] 2024 1:58pmThe above note written by YOBANI Stein acting as human recorder, note dictated by Dr.Brett Krause. [facility] Work Phone: 1(373) 864-235409-04-2025 Evaluation note* Author Shilpi Lantigua [facility] 2024 4:18pmSooner if needed, the ER if concerns,The above note written by Shilpi Lantigua LPN acting as human recorder, note dictated by Dr. Griselda Krause Author Curtis Covarrubias [facility] 2024 12:58pmThe above note written by YOBANI Stein acting as human recorder, note dictated by Dr.Brett Krause. [facility] Work Phone: 1(533) 236-902308-20-2025 History of Present illness Narrative* Oziel Cadena [...] alleviate the pain. documented in this encounterResearch Belton HospitalJelclpdwac04-17-5312 Evaluation note* Diagnosis Onset Date Resolution Status Admit Date Colon polyps acuteJuly 2024 3:14pmDyspepsiaacuteJuly 2024 3:14pmGERD (gastroesophageal reflux disease)acuteJuly 2024 3:14pmAnxiety and depressionacuteSept2024 10:28amBurning sensationacuteSept2024 10:28amColon polypsacuteSept2024 10:28amHyperlipidemiaacute [place] 2024 10:28amMedicare annual wellness visit, initialacuteSept2024 10:28amNicotine dependence with current useacutept2024 10:28amPAD (peripheral artery disease)acuteSept2024 10:28amScreening for prostate canceracuteSept2024 10:28am [facility] Work Phone: 1(261) 791-195107-24-2025 History of Present illness Narrative* QUENTIN Vail [...] INFLAMED SEBORRHEIC KERATOSIS Left Wrist - Anterior [place] and brown stuck on verrucous scaly papule [...] limited to risks of scarring, darker or well treatment offsider pigmentary changes, recurrence, incomplete removal and infection. [...] limited to risks of scarring, darker or well treatment offsider pigmentary changes, recurrence, incomplete removal and infection. [...] year, skin check documented in this encounterResearch Belton HospitalYrylqntafs47-35-9333 History of Present illness Narrative* Oziel Cadena [...] cord stimulator, as suggested by his paint stripper, and is scheduled to see his doctor [...] The Procedure was done by Dr. Oziel Cadnea. This note was scribed by Jocelyn Arango(Neisha) [...] injection was administered today. documented in this [facility]06-04-2025 Evaluation note* Author Shilpi L[facility]igua [facility] 2024 2:36pmSooner if needed, the ER if concerns,The above note written by Shilpi Lantigua LPN acting as human recorder, note dictated by Dr. Griselda Krause [facility] Work Phone: 1(933) 445-165005-28-2025 History of Present illness Narrative* Oziel Cadena [...] ezetimibe (ZETIA) 10 mg, Oral, Daily HYDROcodone-acetaminophen ([place]) 5-325 MG tablet take 1 tablet [...] at risk (11/05/2024) [facility] PHQ-2 PHQ-2 score: 2 REVIEW OF [...] Ana Luisa's absent. Ankle clonus absent. Coordination Nmgtjp-mk-cbfj, rapid alternating movements and payd-rb-viwu normal bilaterally without dysmetria. Gait Normal casual, [...] injections if needed. documented in this encounterResearch Belton HospitalAykhuizrmy58-89-3465 NoteHNO ID: [id number] Author: RACQUEL COLE MD Service: ? Author Type: Physician Type: Progress Notes Filed: 11/07/2024 11:09 Note Text: NAME: Shantel Melendez CLINIC NO.: [id number] DATE OF SERVICE: November 07, 2024 (Curtis) Some elements in this clinic note that are critical to medical decision making have been carefully reviewed and included from a prior clinic note dated: November 02, 2023 (Curtis) Referring Provider: Griselda Krause, DO Additional Clinicians involved in Shantel Melendez's care: Dr Kimberly Nichole ENT, Dr. 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 10/05/2021 - MRI Brain: [facility] There is T2 and T2 [...] microvascular ischemic change. Brainst (more content not included)...[facility]05-19-[facility] History of Present illness Narrative* Curtis Da [...] November 03, 2024 TIME: 8:13 AM * Salyl Doyle RT(R) - 11/03/2024 8:15 AM EDT [...] PATIENT PRESENTS WITH AN IMPLANTABLE OR ATTACHED FOSTER CARE SOCIAL WORKER: No RADIOLOGY DEPARTMENT: CT; Exam(s) Completed: Chest and Neck PERIPHERAL IV DATA: Site assessment: Clean,Dry and Intact, Site disposition Discontinued SIGNED BY: RT Craig(R) November 03, 2024 8:32 AM documented in this encounterMercy Health St. [facility]05-19-2025 NoteHNO ID: [id number] Author: CURTIS DA SILVA RN Service: ? [...] Melendez DATE: November 03, 2024 TIME: 8:13 [facility]05-19-2025 NoteHNO ID: [id number] Author: SALLY DOYLE RT(R) Service: ? Author [...] PATIENT PRESENTS WITH AN IMPLANTABLE OR ATTACHED FOSTER CARE SOCIAL WORKER: No RADIOLOGY DEPARTMENT: CT; Exam(s) Completed: Chest and Neck PERIPHERAL IV DATA: Site assessment: Clean,Dry and Intact, Site disposition Discontinued SIGNED BY: Sally Doyle, RT(R) November 03, 2024 8:32 [facility]05-19-2025 Telephone encounter Note* Telephone Encounter - Curtis Da Silva RN - 11/03/2024 7:49 AM EDT Please sign pended labs for 1 year f/u-will draw with CT today Thank You! Curtis Da Silva RN [facility]05-19-2025 Miscellaneous Notes* Telephone Encounter - Curtis Da Silva RN - 11/03/2024 7:49 AM EDT Please sign pended labs for 1 year f/u-will draw with CT today Thank You! Curtis Da Silva RN documented in this encounterMercy Health St. [facility]04-28-2025 History of Present illness Narrative* Doretha [...] assess the C7 screw. Doretha Harris MD Credit Operations Specialist of Neurosurgery [facility] Neuroscience ICU Office: [phone] [1] Past Surgical History: Procedure Laterality Date [...] 60 capsule, Rfl: 0 documented in this [facility] Work Phone: 1(159) 626-297504-21-2025 Radiology Diagnostic [facility]OH[facility] [place] [address] [place] [address] CT Scan Report Signed Patient: Shantel Melendez MR#: [id number] : 1960 Acct:[id number] Age/Sex: 63 / M ADM Date: 5 Loc: ER Room: Type: [facility] ER Attending Dr: Copies to: Manisha [...] Dorothy Eubanks M.D.10/06/2024 4:08 PM Dictation Location: [place] [address] Transcribed By: [facility] 10/06/24 1608 Dictated By: Dorothy Eubanks MD 10/06/24 1556 Signed By: 10/06/24 1606 [facility] Work Phone: 1(841) 144-755704-21-2025 Radiology Diagnostic study [facility] [place] [address] [place] [address] CT Scan Report Signed Patient: Shantel Melendez MR#: [id number] : 1960 Acct:[id number] Age/Sex: 63 / M ADM Date: 5 Loc: ER Room: Type: [facility] ER Attending Dr: Copies to: Manisha [...] Dorothy Eubanks M.D.10/06/2024 3:56 PM Dictation Location: [place] [address] Transcribed By: [facility] 10/06/24 1556 Dictated By: Dorothy Eubanks MD 10/06/24 1551 Signed By: 10/06/24 1556 [facility] Work Phone: 1([phone]) 151-215203-27-2025 Evaluation note* Diagnosis Onset Date Resolution Status Admit Date Current every day smoker acuteMarch 2024 8:53amPAD (peripheral artery disease)acuteSeptember 11, 2024 8:53amRight leg claudicationacuteSeptember 11, 2024 8:53[address] [facility] Work Phone: 1([phone]) 776-459303-27-2025 Evaluation note* Diagnosis Onset Date Resolution Status Admit Date Current every day smoker acuteMarch 2024 8:53amPAD (peripheral artery disease)acuteSeptember 11, 2024 8:53amRight leg claudicationacuteAugch 2024 8:53amCardiac arrhythmiaacute May 2024 9:37amEssential hypertensionacuteMa2024 9:37am HyperlipidemiaacuteMa2024 9:37amGlioma of braindeletedMa2024 9:37amPAD (peripheral artery disease)deletedOctober 27, 2024 9:37am [facility] Work Phone: 1([phone]) 717-121003-27-2025 Evaluation note* Diagnosis Onset Date Resolution Status [...] habitsacuteJune 2024 1:57pmDiarrheaacuteJune 2024 1:57pmDysphagiaacuteJune 2024 1:57pm [facility] Work Phone: 1([phone]) 738-792303-27-2025 Evaluation note* Diagnosis Onset Date Resolution Status [...] RSV (respiratory syncytial virus infection)acuteJune 2024 2:26pm [facility] Work Phone: 1([phone]) 912-732503-27-2025 History of Present illness Narrative* Oziel Cadena [...] ezetimibe (ZETIA) 10 mg, Oral, Daily HYDROcodone-acetaminophen ([place]) 5-325 MG tablet take 1 tablet [...] Depression: Not at risk (06/30/2024) Received from [facility] PHQ-2 Patient Health Questionnaire-2 Score: 2 [...] Ana Luisa's absent. Ankle clonus absent. Coordination Ksyvzs-ye-iozf, rapid alternating movements and ynxa-ga-jxhm normal bilaterally without dysmetria. Gait Normal casual, [...] injections if needed. documented in this encounterResearch Belton HospitalEstlwomirt85-01-4013 History of Present illness Narrative* Oziel Cadena [...] ezetimibe (ZETIA) 10 mg, Oral, Daily HYDROcodone-acetaminophen ([place]) 5-325 MG tablet take 1 tablet [...] Depression: Not at risk (06/30/2024) Received from [facility] PHQ-2 Patient Health Questionnaire-2 Score: 2 [...] injections if needed. documented in this encounterResearch Belton HospitalXqhzzfceyv73-39-5774 Evaluation note* Author Shilpi Lantigua [facility] HospitalAuthoredJanuary 2024 4:44pmSooner if needed, the ER if concerns,The above note written by Shilpi Lantigua LPN acting as human recorder, note dictated by Dr. Griselda Krause [facility] Work Phone: 1(193) 669-918201-15-2025 History of Present illness Narrative* Oziel Cadena [...] ezetimibe (ZETIA) 10 mg, Oral, Daily HYDROcodone-acetaminophen ([place]) 5-325 MG tablet take 1 tablet [...] Depression: Not at risk (06/30/2024) Received from [facility] PHQ-2 Patient Health Questionnaire-2 Score: 2 [...] at that time. documented in this encounterResearch Belton HospitalUmzuborscg76-78-9710 History of Present illness Narrative* Doretha Harris [...] another set of XR. Doretha Harris MD Credit Operations Specialist of Neurosurgery [facility] Neuroscience ICU Office: [phone] Scribe Attestation By signing my name below, I, Shira Sen, Scribe, attest that this documentation has been preparedunder the direction and in the presence of Dorehta Harris MD. documented in this [facility] Work Phone: 1(159) 749-523212-04-2024 History of Present illness Narrative* Oziel Cadena [...] ezetimibe (ZETIA) 10 mg, Oral, Daily HYDROcodone-acetaminophen ([place]) 5-325 MG tablet take 1 tablet [...] Depression: Not at risk (04/09/2024) Received from [facility] PHQ-2 Patient Health Questionnaire-2 Score: 0 [...] injections if needed. documented in this encounterResearch Belton HospitalVfhmwziqwr10-55-1471 History of Present illness Narrative* Solomon Narayanan PA-C - 04/30/2024 1:00 PM EST Images from the original note were not included. [facility] Department of Neurological Surgery Post Operative Patient [...] CAD (coronary artery disease) Peripheral vascular disease ([facility]) Past Medical History: Diagnosis Date Anxiety Cataract s/p excision of left Cervical radiculopathy Chronic pain disorder Coronary artery disease Depression Dysphagia thin liquids Hypertension NPH (normal pressure hydrocephalus) (Multi) PAD (peripheral artery disease) ([facility]) s/p stent (05/2023) on ASA 81mg Peripheral vascular disease ([facility]) Pontine lesion watchful waiting Pulmonary nodule Skin [...] directly. Sincerely, RICH Hernandez PA-C Associate Physician Mobile Lounge Driver, Neurosurgery Clinical Credit Operations Specialist [facility] [employer] [place] [address] [place] [address] documented in this [facility] Work Phone: 1(550) 911-117411-11-2024 Evaluation note* Diagnosis Onset Date Resolution Status Admit Date Cardiac arrhythmia acuteNovember 2023 9:39amEssential hypertensionacuteNovember 2023 9:39amHyperlipidemiaacuteNovember 2023 9:39amGlioma of braindeleted April 28, 2024 9:39amPAD (peripheral artery disease)deletedNovember 2023 9:39amHyperlipidemiaacuteJanuary 2024 9:23amS/P cervical discectomy acuteJanuary 2024 9:23amScreening for prostate canceracuteJanuary 2024 9:23am [facility] Work Phone: 1(231) 666-686810-24-2024 Hospital course Narrative* Aaron Gallo PA-C - [...] HYDROcodone-acetaminophen 5-325 mg tablet; Commonly known as: [place] tiZANidine 4 mg capsule; Commonly known as: Zanaflex Outpatient Follow-Up Future Appointments Date Time Provider Department Center 04/30/2024 1:00 PM Solomon Narayanan PA-C [id number] [place] 05/02/2024 9:00 AM [facility] PET [facility] [place] 05/02/2024 10:00 AM Helder Jack MD [id number] [facility] 06/30/2024 9:00 AM Doretha Harris MD [id number] [place] Aaron Gallo PA-C documented in this [facility] Work Phone: [phone]) 900-404810-24-2024 History of Present illness Narrative* Nikole Lezama, PharmD - 04/10/2024 12:11 PM EDT Pharmacy Medication History Review Shantel Melendez is a 63 y.o. male admitted for Cervical radiculopathy. Pharmacy reviewed the patient's rwnwg-tj-huawxyvet medications and allergies for accuracy. Medications ADDED: norco Medications CHANGED: Tizanidine nightly to as needed Medications REMOVED: Diamox Albuterol The list below reflects the updated TAN ROOM SUPERVISOR list. Prior to Admission Medications Prescriptions Last Dose Informant HYDROcodone-acetaminophen ([place]) 5-325 mg tablet Self Sig: Take [...] Patient interview (good historian-required some prompting) [facility] medical note 01/29 Additional Comments: none Nikole Lezama PharmD Transitions of Care Pharmacist 04/10/24 Secure Chat preferred If no response call [phone] or simplifyMD Med Rec * Tori Johnson OT - 04/10/2024 11:57 AM EDT Occupational Therapy Evaluation Patient Name: Shantel Melendez Today's Date: 04/10/2024 Room: [address] [place] [address] Time Calculation Start Time: 1019 Stop Time: [...] bars in shower Prior Function: Level of [place]: Independent with ADLs and functional transfers, Independent with homemaking with ambulation ADL Assistance: Independent Homemaking Assistance: Independent Ambulatory Assistance: Independent 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, 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 [...] LUE LUE: Within Functional Limits Outcome Measures: [facility] Daily Activity Putting on and taking [...] 11:57 AM TORI JOHNSON OT Rehab Office: [phone] * Tia Caceres, PT - 04/10/2024 10:33 AM EDT Physical Therapy Physical Therapy Evaluation Patient Name: Shantel Melendez Department: [place] [address] Room: [address] [place] [address] Today's Date: 04/10/2024 Time Calculation Start Time: [...] Prior Function Per Pt/Caregiver Report Level of [place]: (independent ambulation in/outdoors no device, independent stairclimbing as needed, no falls) ADL Assistance: Independent Homemaking Assistance: Independent Ambulatory Assistance: Independent 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 documented in this encounterDayton Children's Hospital Work Phone: 1(529) 459-531910-23-2024 Plan of care note* Care Plan - [...] goals for the shift include pain management. [facility] Work Phone: 1(625) 324-666310-23-2024 Miscellaneous Notes* Care Plan - Elizabeth Esposito [...] (B) Operative Note Date: 04/09/2024 OR Location: [facility] OR Name: Shantel Melendez, : 1960, Age: 63 y.o., , Sex: male Diagnosis Pre-op Diagnosis * Cervical radiculopathy [M54.12] * Senile osteoporosis [M81.0] Post-op Diagnosis * Cervical radiculopathy [M54.12] * Senile osteoporosis [M81.0] Procedures Fusion Spine Anterior Cervical and Discectomy C5-6, C6-7 - CA ARTHRD ANT INTERBODY DECOMPRESS CERVICAL BELW C2 CA ARTHRD ANT INTERBODY DECOMPRESS CERVICAL BELW C2 [] CA ARTHRD ANT INTERDY CERVCL BELW C2 EA ADDL NTRSPC [57972] CA ALLOGRAFT FOR SPINE SURGERY ONLY STRUCTURAL [85767] CA MICROSURG TQS REQ USE OPERATING MICROSCOPE [12024] Surgeons * Doretha Harris - Primary Resident/Fellow/Other Mobile Lounge Driver: Surgeons and Role: * Chicho Bryan MD - Resident - Assisting * Rojas Edwards MD - Resident - Assisting Procedure Summary Anesthesia: General ASA: III Anesthesia Staff: Anesthesiologist: Fred Cheek MD C-AA: Shelly Mullins Capp [facility]; NAVEEN Reddy IVONE: Jamee Woodall Estimated [...] 85 mL Specimen: No specimens collected Staff: Tablet Making Machine Operator Helper: Derrell Scrub Person: Beverly Scrub Person: Shaina Drains and/or Catheters: Closed/Suction Drain 1 Neck Bulb 10 Fr. (Active) Urethral Catheter Double-lumen;Non-latex 16 Fr. (Active) Tourniquet Times: Implants: Implants Type Name Action Serial No. Spinal Hardware SCREW, DISTRACTION, 14 MM - [id number] Used, Not Implanted Spinal Hardware ALLOGRAFT, TRIAD LORDOTIC 6 X 11 X 14 - [id number] - [id number] Implanted [id number] Spinal Hardware ALLOGRAFT, TRIAD LORDOTIC 6 X 11 X 14 - [id number] - [id number] Implanted [id number] Spinal Hardware PLATE, ACP, 1.6V, 2 LEVEL, 34MM - [id number] Implanted Spinal Hardware SCREW, ACP, SELF DRILL, 3.5 X 17MM, VARIABLE - [id number] Implanted 3.5 X 19MM SCREW Implanted Findings: [...] then placed our self-retaining retractor in and Holbrook pins in and placed the disc space [...] 04/09/2024 4:50 PM EDT documented in this encounterDayton [facility] Hospital Work Phone: 1(158) 985-230810-23-2024 Nurse Note* Shantelle Pacheco RN - 04/09/2024 7:03 PM EDT Patient transferred from PACU to [id number] via stretcher in stable condition. Patient oriented to room, bed, and call light. Skin assessment witnessed by Brianda Dowling RN. Will continue to monitor. [facility] Nurse Note* Shantelle Pacheco RN - 04/09/2024 7:03 PM EDT Patient transferred from PACU to [id number] via stretcher in stable condition. Patient oriented to room, bed, and call light. Skin assessment witnessed by Brianda Dowling RN. Will continue to monitor. documented in this encounterDayton Children's Hospital Work Phone: 1(996) 160-218310-23-2024 Hospital Note* Hospital Course - Aaron Gallo PA-C - 04/09/2024 5:04 PM EDT 63M h/p HTN, CAD, PAD s/p stent on ASA81, pontine glioma, tongue cancer p/w LUE radiculopathy, 04/09 s/p C5-7 ACDF 04/10 PT/OT DC recs no needs, post operative xray shows good position, Drain removed [facility] Work Phone: 1(100) 510-650610-23-2024 Note* Op Note - Chicho Bryan MD - 04/09/2024 2:30 PM EDT Fusion Spine Anterior Cervical and Discectomy C5-6, C6-7 (B) Operative Note Date: 04/09/2024 OR Location: [facility] OR Name: Shantel Melendez, : 1960, Age: 63 y.o., , Sex: male Diagnosis Pre-op Diagnosis * Cervical radiculopathy [M54.12] * Senile osteoporosis [M81.0] Post-op Diagnosis * Cervical radiculopathy [M54.12] * Senile osteoporosis [M81.0] Procedures Fusion Spine Anterior Cervical and Discectomy C5-6, C6-7 93226 - CA ARTHRD ANT INTERBODY DECOMPRESS CERVICAL BELW C2 CA ARTHRD ANT INTERBODY DECOMPRESS CERVICAL BELW C2 [44820] CA ARTHRD ANT INTERDY CERVCL BELW C2 EA ADDL NTRSPC [11936] CA ALLOGRAFT FOR SPINE SURGERY ONLY STRUCTURAL [23309] CA MICROSURG TQS REQ USE OPERATING MICROSCOPE [53049] Surgeons * Doretha Harris - Primary Resident/Fellow/Other Mobile Lounge Driver: Surgeons and Role: * Chicho Bryan MD [...] 85 mL Specimen: No specimens collected Staff: Tablet Making Machine Operator Helper: Derrell Scrub Person: Beverly Scrub Person: Shaina Drains and/or Catheters: Closed/Suction Drain 1 Neck Bulb 10 Fr. (Active) Urethral Catheter Double-lumen;Non-latex 16 Fr. (Active) Tourniquet Times: Implants: Implants Type Name Action Serial No. Spinal Hardware SCREW, DISTRACTION, 14 MM - [id number] Used, Not Implanted Spinal Hardware ALLOGRAFT, TRIAD LORDOTIC 6 X 11 X 14 - [id number] - [id number] Implanted [id number] Spinal Hardware ALLOGRAFT, TRIAD LORDOTIC 6 X 11 X 14 - [id number] - [id number] Implanted [id number] Spinal Hardware PLATE, ACP, 1.6V, 2 LEVEL, 34MM - [id number] Implanted Spinal Hardware SCREW, ACP, SELF DRILL, 3.5 X 17MM, VARIABLE - [id number] Implanted 3.5 X 19MM SCREW Implanted Findings: [...] then placed our self-retaining retractor in and Holbrook pins in and placed the disc space [...] Harris MD at 04/09/2024 4:50 PM EDT [facility] Work Phone: 1(184) 262-371810-23-2024 Attending History and physical note* Rojas Edwards MD - 04/09/2024 12:22 PM EDT H&P reviewed. The patient was examined and there are no changes to the H&P. Cosigned by Doretha Harris MD at 04/09/2024 12:53 PM EDT Source Note - Rick MckinneyBAILEY-ASSISTANT MANAGER AIRSIDE OPERATIONS - 03/26/2024 10:30 AM EDT Images from [...] pressure hydrocephalus) (Multi) PAD (peripheral artery disease) ([facility]) s/p stent (05/2023) on ASA 81mg Peripheral vascular disease ([facility]) Pontine lesion watchful waiting Pulmonary nodule [...] Row Pre-Admission Testing from 02/11/[address] [facility] Questionnaire Series Submission from 02/06/2024 in [facility] with Generic Provider Laura Can [...] or washing dishes? 2.7 filed at 02/11/2024 73089.7 filed at 02/06/2024 0032 Can you do [...] Row Pre-Admission Testing from 02/11/[address] [facility] DVT Score 11 filed at 02/11/2024 1506 BMI 30 or less filed at 02/11/2024 1506 RETIRED: Current Status Major surgery planned, lasting over 3 hours filed at 02/11/2024 1506 RETIRED: History Prior major surgery, Previous malignancy filed at 02/11/2024 1506 RETIRED: Age 60-75 years filed at 02/11/2024 1506 Modified Frailty Index Flowsheet Row Pre-Admission Testing from 02/11/[address] [facility] Non-independent functional status (problems with dressing, bathing, personal grooming, or cooking) 0 filed at 02/11/2024 1505 History of diabetes mellitus 0 filed at 02/11/2024 1505 History of COPD 0 filed at 02/11/2024 1505 History of CHF No filed at 02/11/2024 1505 History of [place] 0 filed at 02/11/2024 1505 History of [...] Row Pre-Admission Testing from 02/11/[address] [facility] High-Risk Surgery (Intraperitoneal, Intrathoracic,Suprainguinal vascular) 0 filed at 02/11/2024 1505 History of ischemic heart disease (History of [place], History of positive exercuse test, Current chest [...] Row Pre-Admission Testing from 02/11/[address] [facility] Smoking status 0 filed at 02/11/2024 [...] Row Pre-Admission Testing from 03/26/[address] [facility] Pre-Admission Testing from 02/11/[address] [facility] Do you snore loudly? 0 filed [...] Yellow, Dark-Yellow Appearance, Urine Clear Clear Specific Landers, Urine 1.007 1.005 - 1.035 pH, Urine [...] Rate 63 BPM Atrial Rate 63 BPM CA Interval 268 ms QRS Duration 74 ms QT Interval 406 ms QTC Calculation(Bazett) 415 ms P [place] 58 degrees R [place] -3 degrees T [place] 18 degrees QRS Count 10 beats Q [...] given to patient. Neurosurgery: Doretha Harris MD [facility] 01/03/24 seen for cervical radiculopathy. Neurosurgery: Jose Cruz Khan MD [facility] 11/05/23- [facility] seen for cervical stenosis of spine. Oncology: Helder Jack MD [facility] 12/13/23 seen for [...] of airway difficulty. HemOnc: Racquel Cole MD [facility] 11/02/23-[facility] seen for head and neck [...] Evaluation Cardiology: Lilliam Cason MD - [facility] (see media tab for last office note) [...] understanding ofpreoperative instructions. After Visit Summary given. [facility] Work Phone: 1(157) 964-944210-23-2024 History and physical note* Rojas Edwards MD [...] pressure hydrocephalus) (Multi) PAD (peripheral artery disease) ([facility]) s/p stent (05/2023) on ASA 81mg Peripheral vascular disease ([facility]) Pontine lesion watchful waiting Pulmonary [...] Row Pre-Admission Testing from 02/11/[address] [facility] Questionnaire Series Submission from 02/06/2024 in [facility] with Generic Provider Laura Can [...] or washing dishes? 2.7 filed at 02/11/2024 18566.7 filed at 02/06/2024 0032 Can you do [...] Row Pre-Admission Testing from 02/11/[address] [facility] DVT Score 11 filed at 02/11/2024 1506 BMI 30 or less filed at 02/11/2024 1506 RETIRED: Current Status Major surgery planned, lasting over 3 hours filed at 02/11/2024 1506 RETIRED: History Prior major surgery, Previous malignancy filed at 02/11/2024 1506 RETIRED: Age 60-75 years filed at 02/11/2024 1506 Modified Frailty Index Flowsheet Row Pre-Admission Testing from 02/11/[address] [facility] Non-independent functional status (problems with dressing, bathing, personal grooming, or cooking) 0 filed at 02/11/2024 1505 History of diabetes mellitus 0 filed at 02/11/2024 1505 History of COPD 0 filed at 02/11/2024 1505 History of CHF No filed at 02/11/2024 1505 History of [place] 0 filed at 02/11/2024 1505 History of [...] Row Pre-Admission Testing from 02/11/[address] [facility] High-Risk Surgery (Intraperitoneal, Intrathoracic,Suprainguinal vascular) 0 filed at 02/11/2024 1505 History of ischemic heart disease (History of [place], History of positive exercuse test, Current chest [...] Row Pre-Admission Testing from 02/11/[address] [facility] Smoking status 0 filed at 02/11/2024 [...] Row Pre-Admission Testing from 03/26/[address] [facility] Pre-Admission Testing from 02/11/[address] [facility] Do you snore loudly? 0 filed [...] Yellow, Dark-Yellow Appearance, Urine Clear Clear Specific Landers, Urine 1.007 1.005 - 1.035 pH, Urine [...] Rate 63 BPM Atrial Rate 63 BPM CA Interval 268 ms QRS Duration 74 ms QT Interval 406 ms QTC Calculation(Bazett) 415 ms P [place] 58 degrees R [place] -3 degrees T [place] 18 degrees QRS Count 10 beats Q [...] given to patient. Neurosurgery: Doretha Harris MD [facility] 01/03/24 seen for cervical radiculopathy. Neurosurgery: Jose Cruz Khan MD [facility] 11/05/23- [facility] seen for cervical stenosis of spine. Oncology: Helder Jack MD [facility] 12/13/23 seen for [...] of airway difficulty. HemOnc: Racquel Cole MD [facility] 11/02/23-[facility] seen for head and neck [...] Evaluation Cardiology: Lilliam Cason MD - [facility] (see media tab for last office note) [...] After Visit Summary given. documented in this encounterDayton Children's Hospital Work Phone: 1(433) 888-339610-15-2024 Evaluation note* Author [facility] 2023 10:01amThe above note written by Nida Humphreys LPN, acting as human recorder, note dictated by Dr. Griselda Krause. [facility] Work Phone: 1(364) [phone] Evaluation note* Author [facility] 2023 10:40amThe above note written by Nida Humphreys LPN, acting as human recorder, note dictated by Dr. Griselda Krause. Author [facility] 2023 11:01amThe above note written by Nida Humphreys LPN, acting as human recorder, note dictated by Dr. Griselda Krause. [facility] Work Phone: 1(636) 666-292207-18-2024 History of Present illness Narrative* Doretha Harris [...] bone stimulator after surgery. Doretha Harris MD Credit Operations Specialist of Neurosurgery [facility] Neuroscience ICU Office: [phone] Scribe Attestation By signing my name below, Parisa Wright , Erlinda attest that this documentation has been prepared under the direction and in the presence of MD Shirley. documented in this [facility] Work Phone: 1(299) 632-341706-27-2024 History of Present illness Narrative* Helder Jack MD - 12/13/2023 10:00 AM EDT Patient ID: Shantel Melendez is a 63 y.o. male. Referring Physician: Shimon Heaton PA-C [id number] [place] [address] Primary Care Provider: Griselda Krause DO Subjective History of Present Ilness: 62 y.o. presents in neurosurgical consultation from [facility] for cervical stenosis.C/o neck pain and LUE pain, numbness and weakness down to hand for 2 years. SawNeurosurgeon at and has had 2 spinal taps with some improvement. Went to [facility] to be assessed for hydrocephal;us and was told he does not have hydrocephalus. He saw Dr. Lara at the [facility]. Also pain behind left [...] issues. 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 INTERVAL HISTORY (12/13/2023): Since the last visit, he continues to have severe neck pain, which isslowly getting worse, along with some muffled hearing on the left side. He tried going back to parttime work, but the activity made the neck pain much more severe. He saw a Neurosurgeon at [facility] about the cervical stenosis, but he was unwilling to consider surgery for the neck due to the pontine lesion. He has now been to see a Neurosurgery PA (Solomon Narayanan) at [facility] about the neck, who [...] ROS is as per documentation in the [facility]. Objective BSA: There is no height [...] Nate Benavidez 12/13/2023 9:38 AM Dictation workstation: [id number] Impression 1. Abnormal increased T2 signal in [...] will undergo a new MRI brain at [facility]. -I spent > 40 minutes in face to face consultation to review and discuss the above; 50% of whichor more was dedicated to counseling. Helder Jack MD documented in this encounterDayton Children[facility] Hospital Work Phone: 1(232) 533-634406-27-2024 Instructions* Patient Instructions* Alondra Escamilla RN - 12/13/2023 10:00 AM EDT Your next appointment will be in 5 months. Please schedule your MRI prior to this visit. Please contact [phone] option 5 then option 2 with any questions or concerns. For any scheduling concerns please call [phone] option 1 documented in this encounterDayton Children's Hospital Work Phone: 1(534) 886-500906-26-2024 History of Present illness Narrative* Solomon Narayanan PA-C - 12/12/2023 1:00 PM EDT Images from the original note were not included. [facility] Department of Neurological Surgery New Patient Visit [...] Motor Strength: 4/5 left biceps, triceps, wrist, solderer assembly repair Muscle Bulk: Decreased muscle bulk left bicep [...] as well as had multiple interventions via [facility] center including trial ablation which did [...] directly. Sincerely, RICH Hernandez PA-C Associate Physician Mobile Lounge Driver, Neurosurgery Clinical Credit Operations Specialist [facility] [employer] [facility] [place] [address] [place] [address] documented in this encounterDayton Children's Hospital Work Phone: 1([phone]) [phone] Instructions* Patient Instructions* Racquel Cole MD - 11/02/2023 10:13 AM EDT Scans and labs in 1 year RTC 1 week after documented in this encounterMer[facility]. [facility]05-17-2024 History of Present illness Narrative* Racquel Cole MD - 11/02/2023 9:45 AM EDT Images from the original note were not included. NAME: Shantel Melendez NO.: [id number] DATE OF SERVICE: November 02, 2023 (Curtis) Some elements in this clinic note that are critical to medical decision making have been carefully reviewed and included from a prior clinic note dated: November 03, 2022 (Curtis). Referring Provider: Griselda Krause DO Additional Clinicians involved in Shantel Melendez's care: Dr Kimberly Nichole ENT, Dr. 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 10/05/2021 - MRI Brain: [facility] There is T2 and T2 [...] respiratory bronchiolitis. 01/30/2019 - Neck dissection at [facility] Base of tongue did note [...] 2020: Doing well, still smokes, works at [employer]. Reviewed scans and there is no evidence [...] which included preparing to see the patient, [id number] patient care, completing clinical documentation, performing a medically appropriate examination, counseling and educating the patient/family/caregiver, ordering medications, tests, or p rocedures, independently interpreting results (not separately reported), communicating results to the patient/family/caregiver, and care coordination (not separately reported). Racquel Cole MD, CPE Hematology and Oncology Services Provided at: [place], [place] Scribe Attestation: This note was scribed [...] under my direction. CC: Griselda Krause, DO [address] [place] [phone] [address] NEWMAN ENT[address] Dr[address] Nichole ENT Dr. Ibarra RI surgery [facility]. documented in this encounterMercy Health St. [facility]05-13-2024 Evaluation note* Author Shilpi Lantigua [facility] HospitalAuthoredMay 2023 10:32amSooner if needed, the ER if concerns,The above note written by Shilpi Lantigua LPN acting as human recorder, note dictated by Dr. Griselda Krause [facility] Work Phone: 1([phone]) 992-262105-10-2024 History of Present illness Narrative* Curtis Da [...] PATIENT PRESENTS WITH AN IMPLANTABLE OR ATTACHED FOSTER CARE SOCIAL WORKER: No RADIOLOGY DEPARTMENT: CT; Exam(s) Completed: Chest and Neck PERIPHERAL IV DATA: Site assessment: Clean,Dry and Intact, Site disposition Discontinued SIGNED BY: RT Craig(R) October 26, 2023 10:07 AM documented in this encounterMercy Health St. [facility]04-19-2024 History of Present illness Narrative* Helder [...] hydrocephalus. He saw Dr. Lara at the [facility]. Also pain behind left [...] issues. 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 Helder Jack MD documented in this [facility] Work Phone: 1(150) 426-419304-19-2024 Instructions* Patient Instructions* Adriana Thomas RN - 10/05/2023 9:[address] Jack will present your case at [facility] next Sunday. Someone from the office will call you that day or about your plan. Please call us with any questions or concerns at [phone] opt. 5, opt. 2 For scheduling concerns please call [phone] option 1 documented in this encounterDayton Children's Hospital Work Phone: 1(504) 483-867402-28-2024 Evaluation note* Author Curtis Covarrubias [facility] 2023 5:19pmThe above note written by Sue Flood acting as human recorder, note dictated by Dr. Griselda Krause . [facility] Work Phone: 1([phone]) [phone] Evaluation note* Author Curtis Covarrubias [facility] 2023 5:19pmThe above note written by Sue Flood acting as human recorder, note dictated by Dr. Griselda Krause . Author Shilpi Lantigua [facility] 2023 10:32amSooner if needed, the ER if concerns,The above note written by Shilpi Lantigua LPN acting as human recorder, note dictated by Dr. Griselda Krause [facility] Work Phone: 1(244) 793-234301-15-2024 Evaluation note* Encounter Date Diagnosis Assessment Notes [...] to continue to follow with them asscheduled. [facility] Other 12-14-2023 Evaluation note* Encounter Date Diagnosis Assessment Notes Treatment Notes Treatment Clinical Notes May, PAD (peripheral artery disease) (ICD-10 - I73.9) Patient recently had angioplasty for occlusion of right iliac artery that was discovered by medical health researcher. He has been doing well since the [...] work before I provide him that consent. [facility] Other 12-13-2023 Evaluation note* Encounter Date Diagnosis [...] I will see him in 3 months. [facility] Other 11-28-2023 Evaluation note* Encounter Date Diagnosis [...] in 3 months Apr,Lightheadedness (ICD-10 - R42) [facility] Other [id number] Procedure noteOhio[facility]11-16-2023 Evaluation note* Encounter Date Diagnosis Assessment [...] questions were addressed and consent was obtained. [facility] Other 11-14-2023 Evaluation note* Encounter Date Diagnosis [...] M54.2) The patient is now following with [facility]. He states he has an upcoming cervical epidural scheduled. The patient remains out of work on [employer] disability , he voices interest in returning to work soon. Apr,AD (peripheral artery disease) (ICD-10 - I73.9) Arterial studies ordered by medical health researcher indicating peripheral artery disease. The patient does report lower extremity pain and heaviness and I recommend it would be beneficial to consult with a vascular specialist. The patient is in agreement, therefore a referral was initiated. A CTA has been ordered by neurologist , appointment pending [facility] scheduling. Apr,Hyperlipidemia (ICD-10 - E78.5) Blood work [...] vocies understanding. We will continue to monitor. [facility] Other 10-26-2023 Evaluation note* Encounter Date Diagnosis Assessment Notes Treatment Notes Treatment Clinical Notes Mar, Claudication (ICD-10 - I73.9) [facility] Other 10-25-2023 Evaluation note* Encounter Date Diagnosis [...] in 4 weeks Mar,Lightheadedness (ICD-10 - R42) [facility] Other 10-24-2023 Evaluation note* Encounter Date Diagnosis Assessment Notes Treatment Notes Treatment Clinical Notes Mar, Elevated blood pressure reading (ICD-10 - R03.0) [facility] Other 09-28-2023 Evaluation note* Encounter Date Diagnosis [...] of infection. Feb,urning sensation (ICD-10 - R20.8) [facility] Other 09-21-2023 Evaluation note* Encounter Date Diagnosis [...] right index finger. We will continueto monitor. [facility] Other 07-13-2023 Hospital Discharge instructions Diet Plan/Instructions [...] * Discharge Physician: : Lima Joseph MD ([id number]) - Anesthesiology, Pain Management * Discharge Physician Phone: : [phone] [facility] [address], [place] [phone] Special Plan/Instructions for Discharge from 12/27/2022 10:26 AM: * Special Instructions : Spoke to patient Wound Care Instruction for Discharge from 12/27/2022 10:26 AM: * Special Instructions : Spoke to patient Remitly 06-20-2023 Evaluation note* Encounter Date Diagnosis Assessment [...] sent to the office to be completed. [facility] Other 05-12-2023 History of Present illness Narrative* [...] with PATIENT DISCHARGED TO: Ambulatory patient, left [place] department area. A Diagnostic radioactive procedure has taken place, with no further precautions necessary other than routine body substance precautions. More information regarding radiation safety can be found usingthis link: [email or web address] SIGNATURE: RT Craig(Neisha) PATIENT NAME: Shantel Melendez DATE: October 27, 2022 TIME: 11:55 AM PAGER/CONTACT #: documented in this encounterMercy Health St. [facility]04-07-2023 History of Present illness Narrative* TABITHA [...] 2:39 PM documented in this encounterMercy Health St. Charles Hospital04-05-2023 Miscellaneous Notes* Telephone Encounter - Akash [...] this time. * Telephone Encounter - Kelly Peerz PA-C - 09/20/2022 11:24 AM EDT Vestibular [...] ? Yes documented in this encounterMercy Health St. Charles Hospital03-29-2023 Instructions* Patient Instructions* Kelly Perez PA-C [...] same dariusz. documented in this encounterMercy Health St. Charles Hospital03-29-2023 Nurse Note* Antonia Tripathi MA - 09/13/2022 10:55 AM EDT Additional intake questions: Has the patient had fever, nausea, vomiting, diarrhea, constipation, fatigue for > 1 week? Yes, diarrhea ( 3 times in last 24 hours), fatigue, and Provider Notified Does the patient have a decreased appetite? No Does patient want to see a Golf Professional? No (yes to any of above [...] Tripathi MA documented in this encounterMercy Health St. Charles Hospital03-29-2023 History of Present illness Narrative* Kelly Perez PA-C - 09/13/2022 10:44 AM EDT This note was created using [employer] Health[employer]. Subjective Shantel Melendez is a 61 year [...] or pronator drift. Coordination: Romberg sign negative. Ftbaol-Mcxo-Zrfpds Test normal. Gait: Gait abnormal. Comments: Slightly [...] which included preparing to see the patient, [id number] patient care, completing clinical documentation, obtaining and/or reviewing separately obtained history, performing a medically appropriate examination, counseling and educating the pat ient/family/caregiver, ordering medications, tests, or procedures, communicating with other HCPs (not separately reported), independently interpreting results (not separately reported), communicatingresults to the patient/family/caregiver, and care coordination (not separately reported). documented in this encounterMer[facility]03-[facility]23 Evaluation note* Encounter Date Diagnosis Assessment [...] her mid twenties. He will see the ENVIRONMENTAL COMPLIANCE TECHNICIAN at Dr. Cadena's office today, and will see the [facility] 09/13/22. I do feel pt needs his FMLA extended until 12/16/22. I encouraged him to continue to follow with these doctors, and we will continue to monitor. [facility] Other 02-14-2023 Evaluation note* Encounter Date Diagnosis [...] pain medication and fever reducers as needed. 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 [facility] Other 10-30-2022 Hospital Discharge instructions Additional Instructions [...] week to see how you are doing. [facility] Work Phone: [phone] Miscellaneous Notes* Telephone Encounter - Racquel Cole MD - 03/27/2022 3:54 PM EDT Good with me * Telephone Encounter - Asya Reynolds RN - 03/27/2022 2:17 PM EDT Informed patient of your recommendations. He states that he is seeing neurology in [place] and they do not feel he needs [...] the weekend about an appointment with a [facility] neurosurgeon. He has not seen [...] Reynolds RN documented in this encounterMercy Health St. [facility]09-29-2022 Miscellaneous Notes* Telephone Encounter - Pamela Nascimento APRN.CNP - 03/16/2022 2:51 PM EDT Time Frame: Next available Provider: Intra-axial neurosurgeon & Neuro-Oncology (same day) Referring: Racquel Cole MD Please instruct patient to hand carry/ upload images prior to appt Dx: Low grade glioma Patient: Shantel Melendez Address: Shantel Melendez [id number] [place] [address] Per Triage: Shantel Melendez is a 61 year old male that requests evaluation of previously diagnosed possible low grade glioma. Patient expectations: Second opinion Tumor Specifics: Location: brain Previous Evaluations: MRI w/wo contrast (10/05/21): 10/05/2021 MRI Brain [facility] Impression: 1. There is [...] [C71.9 (ICD-10-CM)] Order Questions Question Answer [facility] Brain Tumor [facility] Epic access? Yes documented in this encounterMercy Health St. [facility]09-29-2022 Evaluation note* Encounter Date Diagnosis Assessment [...] see if this gives him some relief [facility] Other 08-15-2022 Evaluation note* Encounter Date Diagnosis [...] - G93.9) Patient had another MRI at [facility]. We are awaiting for the results [...] did hold off on any pain medications. [facility] Other 07-11-2022 Evaluation note* Encounter Date Diagnosis [...] blood pressure was elevated upon check in. [facility] Other 06-20-2022 Evaluation note* Encounter Date Diagnosis [...] rule out other causes of his symptoms. [facility] Other 05-24-2022 Evaluation note* Encounter Date Diagnosis [...] will complete the necessary medical disability forms. 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 Narayan, and he is now referring on to Dr. Jonny Vigil at [facility] for [facility] opinion. Reviewed consult note [...] this medication. Will continue to follow up [facility] Other 05-12-2022 History of Present illness Narrative* Racquel Cole MD - 10/27/2021 5:05 PM EDT Images from the original note were not included. NAME: Shantel Melendez CLINIC NO.: [id number] DATE OF SERVICE: October 27, 2021 Some elements in this clinic note that are critical to medical decision making have been carefully reviewed and included from a prior clinic note dated: October 13, 2021 Referring Provider: Griselda Krause, Additional Clinicians involved in Shantelkal Melendez's care: Dr Kimberly Nichole ENT, Dr. 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. Nichole ENT Dr. Ibarra [place] surgery [facility]. documented in this encounterMercy Health St. [facility]05-09-2022 Evaluation note* Encounter Date Diagnosis Assessment [...] him on to see Dr. Jonny Vigil. [facility] [employer] Other 05-04-2022 Miscellaneous Notes* Telephone Encounter - Haily Med Issa - 10/19/2021 12:56 PM EDT Called [facility] Neuro Office spoke with Leslee. She states they have received patient records/referral and have patient scheduled to see Dr Narayan on 10/24. Haily Jovel Pss * Telephone Encounter - Asya Gramajo [facility] - 10/18/2021 10:34 AM EDT Records faxed. * Telephone Encounter - Haily Jovel [facility] - 10/13/2021 12:24 PM EDT Noelle: Information ready for you. Haily Jovel Pss * Telephone Encounter - Antonia Mcguire - 10/13/2021 10:33 AM EDT Referral to neurosurgery - Dr. Narayan or [facility] Noelle/Layo: Can you please refer patient and follow up? Thanks! Antonia Mcguire documented in this encounterMercy Health St. [facility]04-28-2022 History of Present illness Narrative* Racquel Cole MD - 10/13/2021 10:19 AM EDT Images from the original note were not included. NAME: Shantel Melendez [facility] NO.: [id number] DATE OF SERVICE: October 13, 2021 Some elements in this clinic note that are critical to medical decision making have been carefully reviewed and included from a prior clinic note dated:October 14, 2020 Referring Provider: Griselda Krause, DO Additional Clinicians involved in Shantel Melendez's care: Dr Kimberly Nichole ENT, Dr. 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 Reviewed scans and there is no evidence [...] adenopathy is identified. 4. 10/05/2021 MRI Brain [facility] Impression: 1. There is [...] and neck (HCC) Racquel Cole MD, CPE [place], [place] CC: Griselda Krause, DO [address] [phone] [address] [facility] ENT. Dr. Nichole ENT Dr. Ibarra [place] surgery [facility]. documented in this encounterMercy Health St. [facility]04-21-2022 Miscellaneous Notes* Telephone Encounter - Racquel [...] Kumar RN documented in this encounterMercy Health St. [facility]04-21-2022 History of Present illness Narrative* Marilyn [...] 8:07 AM documented in this encounterMercy Health St. [facility]04-04-2022 Evaluation note* Encounter Date Diagnosis Assessment [...] to continue with monitoring diet and exercise. [facility] Other 03-28-2022 Evaluation note* Encounter Date Diagnosis Assessment Notes Treatment Notes Treatment Clinical Notes Aug, Anxiety and depression (ICD-10 - F41.8) [facility] Other 01-13-2022 Evaluation note* Encounter Date Diagnosis Assessment Notes Treatment Notes Treatment Clinical Notes Jun, Sinusitis (ICD-10 - J32.9) I did prescribe the above medications and work note provided. [facility] Other 01-12-2022 Evaluation note* Encounter Date Diagnosis Assessment Notes Treatment Notes Treatment Clinical Notes Jun, Sinus pressure (ICD-10 - J34.89) Patient advised of negative results. Encouraged him to call if symtpoms persist or worsen, he verbalized understanding. [facility] Other 11-02-2021 Evaluation note* Encounter Date Diagnosis Assessment Notes Treatment Notes Treatment Clinical Notes Apr, Sinus congestion (ICD-10 - R09.8 1) [facility] Other 10-28-2021 Evaluation note* Encounter Date Diagnosis [...] Encouraged patient to continue with their efforts. [facility] Other 12-01-2016 History general Narrative - Reported* Type Description Date Medical History anxiety and depression Medical Oqvdvlk38/2016 EGD and colonoscopyMedical HistoryLabs 10/26/16Medical HistoryPSA (0.510) 10/26/16Medical HistoryNo Stress Test as of 11/09/16Medical Akshqeu38/28/19 PSA (0.6)Medical Gvtiwcw96/2021 Stress test ,echocardiogram, 24 hr. holterMedical Ggnjnlj30/29/21 PSA ( 0.4)Medical Rtwrssn18/2021 Covid + Surgical Historyskin cancer on noseSurgical HistoryEGD and Xvocbsixyjb66/2016 Surgical HistorytonsillectomySurgical HistoryHead and neck HPV prajxgd73/2019 Hospitalization Historysee above [facility] Other 12-01-2016 History general Narrative - Reported* Type Description Date Medical History anxiety and depression Medical Xjciavn06/2016 EGD and colonoscopyMedical HistoryLabs 10/26/16Medical HistoryPSA (0.510) 10/26/16Medical HistoryNo Stress Test as of 11/09/16Medical Bsnlcyk03/28/19 PSA (0.6)Medical Lalqidd38/2021 Stress test ,echocardiogram, 24 hr. holterMedical Zjinuqn53/29/21 PSA ( 0.4)Medical Jsjgdvr91/2021 Covid + Surgical Historyskin cancer on noseSurgical HistoryEGD and Liqvnhbhhon13/2016 Surgical HistorytonsillectomySurgical HistoryHead and neck HPV djjzqru47/2019 [facility]Sp[facility]/07/2021Hospitalization History see above [facility] Other 12-01-2016 History general Narrative - Reported* Type Description Date Medical History anxiety and depression Medical Vwzobch72/2016 EGD and colonoscopyMedical HistoryLabs 10/26/16Medical HistoryPSA (0.510) 10/26/16Medical HistoryNo Stress Test as of 11/09/16Medical Ektqeln69/28/19 PSA (0.6)Medical Nodrvcp08/2021 Stress test ,echocardiogram, 24 hr. holterMedical Javclnm40/29/21 PSA ( 0.4)Medical Lpngkbw74/2021 Covid + Medical Eqyhekj7805/26/2022 Brain MRISurgical Historyskin cancer on noseSurgical HistoryEGD and Fxubetkokqp51/2016Surgical HistorytonsillectomySurgical History Head and neck HPV hqynkdn44/2019Surgical HistorySpinal tap at [facility] 11/07/2021Hospitalization Historysee above [facility] Other 12-01-2016 History general Narrative - Reported* Type Description Date Medical History anxiety and depression Medical Twysgxl77/2016 EGD and colonoscopyMedical HistoryLabs 10/26/16Medical HistoryPSA (0.510) 10/26/16Medical HistoryNo Stress Test as of 11/09/16Medical Fsrzfpe93/28/19 PSA (0.6)Medical Wmuxcok95/2021 Stress test ,echocardiogram, 24 hr. holterMedical Gujapxv86/29/21 PSA ( 0.4)Medical Drjxvfr13/2021 Covid + Medical Oiffniy1805/26/2022 Brain MRISurgical Historyskin cancer on nose (squamous cell)Surgical HistoryEGD and Aweiaizkpji89/2016Surgical Historytonsillectomy Surgical HistoryHead and neck surgery for oral cancer/lymph node dissection 01/2019Surgical HistorySpinal tap at [facility]11/07/2021Hospitalization Historysee above [facility] Other 12-01-2016 History general Narrative - Reported* Type Description Date Medical History anxiety and depression Medical Abwziwr73/2016 EGD and colonoscopyMedical HistoryLabs 10/26/16Medical HistoryPSA (0.510) 10/26/16Medical HistoryNo Stress Test as of 11/09/16Medical Rfqmhek68/28/19 PSA (0.6)Medical Sztfpnj48/2021 Stress test ,echocardiogram, 24 hr. holterMedical Pqxuuuw05/29/21 PSA ( 0.4)Medical Ylwcwyj17/2021 Covid + Medical Vlnfdcf8605/26/2022 Brain MRISurgical Historyskin cancer on nose (squamous cell)Surgical HistoryEGD and Acruimugbqb52/2016Surgical Historytonsillectomy Surgical HistoryHead and neck surgery for oral cancer/lymph node dissection 01/2019Surgical HistorySpinal tap at [facility]11/07/2021urgical HistoryLP at [facility]08/2022Hospitalization Historysee above [facility] Other 12-01-2016 History general Narrative - Reported* Type Description Date Medical History anxiety and depression Medical Rkuttbc65/2016 EGD and colonoscopyMedical HistoryLabs 10/26/16Medical HistoryPSA (0.510) 10/26/16Medical HistoryNo Stress Test as of 11/09/16Medical Kjxuonw92/28/19 PSA (0.6)Medical Qjglkxs88/2021 Stress test ,echocardiogram, 24 hr. holterMedical Offauvd77/29/21 PSA ( 0.4)Medical Oampfvm81/2021 Covid + Medical Iltzhip3105/26/2022 Brain MRIMedical Rhnytca52/2023 PADSurgical History skin cancer on nose (squamous cell)Surgical HistoryEGD and Dqxksaukqmn93/2016 Surgical HistorytonsillectomySurgical HistoryHead and neck surgery for oral cancer/lymph node hzxbhdaztt75/2019Surgical HistorySpinal tap at [facility]11/07/2021urgical HistoryLP at [facility]08/2022Hospitalization Historysee above [facility] Other [id number] History general Narrative - Reported* Type Description Date Medical History anxiety and depression Medical Whvmrcq07/2016 EGD and colonoscopyMedical HistoryLabs 10/26/16Medical HistoryPSA (0.510) 10/26/16Medical HistoryNo Stress Test as of 11/09/16Medical Igpbkzv90/28/19 PSA (0.6)Medical Xtanvfl70/2021 Stress test ,echocardiogram, 24 hr. holterMedical Zniskdi21/29/21 PSA ( 0.4)Medical Lvxuxqx22/2021 Covid + Medical Fexosza4405/26/2022 Brain MRIMedical Swrqkbj40/2023 PADSurgical History skin cancer on nose (squamous cell)Surgical HistoryEGD and Ykcublscvyg84/2016 Surgical HistorytonsillectomySurgical HistoryHead and neck surgery for oral cancer/lymph node zorahbqkvq74/2019Surgical HistorySpinal tap at [facility]11/07/2021urgical HistoryLP at [facility]08/2022Surgical History angioplasty right iliac bpvunz32/2023Hospitalization Historysee above [facility] Other 05-19-2009 History of Present illness Narrative* [...] saw Dr. Ba a neurologist in [facility]. * He describes his vision as seeing 1-1/2 . He describes this does not seem quite to but finding a time lab between moving his eyes and having the visual change. [facility] Work Phone: chief complaint+Reason for visit Narrative* Chief Complaint 2 month 2 month f/uReason for VisitCervical spondylosis History of COVID-19 Nicotine dependence with current use SCC (squamous cell carcinoma) Nicotine dependence with current use Osteoarthritis cervical spine [facility] Work Phone: Clinical Notes [facility] Evaluation + Plan note [facility] Evaluation noteNo Assessments Information Available 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 HospitalEvaluation noteNo InformationNoaudrain medical center [employer] Other Evaluation noteNo assessment information available [facility] Work Phone: Evaluation note* Diagnosis Onset Date Resolution Status Migraine acute [facility] Work Phone: Evaluation note* Diagnosis NPH (normal pressure hydrocephalus) (HCC)- Primary Idiopathic normal pressure hydrocephalus (INPH) documented in this encounter [facility]* Diagnosis 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HCC)- Primary NPH (normal pressure hydrocephalus) (HCC) Idiopathic normal pressure hydrocephalus (INPH) documented in this encounter [facility]Evaluchristiana [facility] note* Diagnosis 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HCC) NPH (normal pressure hydrocephalus) (HCC) Idiopathic normal pressure hydrocephalus (INPH) documented in this encounter 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* Author Nida Humphreys [facility] HospitalhoredAlbertaplains regional medical centerdimitry 2023 10:40amThe above note written by Nida Humphreys LPN, acting as human recorder, note dictated by Dr. Griselda Krause. 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* Diagnosis Malignant neoplasm of head, [...] neck documented in this encounter [facility]* Diagnosis Cervical radiculopathy- Primary Brachial neuritis or radiculitis nos Cervical radiculopathy Brachial neuritis or radiculitis nos Senile osteoporosis Senile osteoporosis documented in this encounter [facility] Work Phone: Evaluation note* Diagnosis Cervical radiculopathy- Primary Brachial neuritis or radiculitis nos Status post cervical spinal fusion Arthrodesis status Acute postoperative pain Other acute postoperative pain Muscle spasms of neck documented in this encounter [facility] Work Phone: Evaluation note* Diagnosis Other nerve root and plexus disorders- Primary Cervical paraspinal muscle spasm Spasm of muscle Cervical stenosis of spinal canal Spinal stenosis in cervical region [facility] Diagnosis Cervical radiculopathy- Primary Brachial neuritis or radiculitis nos Occipital neuralgia of left side Balance problem Abnormality of gait documented in this encounter [facility] Work Phone: Evaluation note* 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 [facility] Work Phone: Evaluation note* 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 [facility] Work Phone: [phone] note* Diagnosis Cervical radiculopathy- Primary Brachial neuritis or radiculitis nos Senile osteoporosis documented in this encounter [facility] Work Phone: Evaluation note* Diagnosis Cervical radiculopathy Brachial neuritis or radiculitis nos Senile osteoporosis Cervical radiculopathy Brachial neuritis or radiculitis nos Senile osteoporosis Cervical radiculopathy Brachial neuritis or radiculitis nos Senile osteoporosis documented in this encounter [facility] Work Phone: [phone] note* Diagnosis Cervical radiculopathy Brachial neuritis or radiculitis nos Senile osteoporosis Cervical radiculopathy Brachial neuritis or radiculitis nos Cervical radiculopathy Brachial neuritis or radiculitis nos Senile osteoporosis documented in this encounter [facility] Work Phone: Evaluation note* Diagnosis Cervical radiculopathy Brachial neuritis or radiculitis nos Senile osteoporosis Cervical radiculopathy Brachial neuritis or radiculitis nos Cervical radiculopathy Brachial neuritis or radiculitis nos Senile osteoporosis documented in this encounter [facility] Work Phone: [phone] note* Diagnosis Status post cervical spinal fusion- Primary Arthrodesis status documented in this encounter [facility] Work Phone: Evaluation note* Diagnosis Nerve root and plexus disorder, unspecified- Primary [facility]* Diagnosis Nerve root and plexus disorder, unspecified- Primary documented in this encounter [facility]* Diagnosis Nerve root and plexus disorder, unspecified- Primary documented in this encounter [facility] HealthcareEvaluation note* Diagnosis Status post cervical spinal fusion- Primary Arthrodesis status documented in this encounter [facility] Work Phone: Evaluation note* Diagnosis 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 HospitalEvaluchristiana hospital note* Diagnosis Nerve root and plexus disorder, unspecified- Primary Acute pain of left shoulder documented in this encounter [facility]Evaluation [facility]* Diagnosis Melanocytic nevus of trunk- Primary Benign neoplasm of skin of trunk, except scrotum Seborrheic keratosis Inflamed seborrheic keratosis Actinic keratosis Capillary angioma Nevus, non-neoplastic History of SCC (squamous cell carcinoma) of skin Personal history of other malignant neoplasm of skin documented in this encounter [facility]Evaluation [facility]* Diagnosis Nerve root and plexus disorder, unspecified- Primary Acute pain of left shoulder documented in this encounter [facility]Evaluation note* Diagnosis Acute pain of right shoulder- Primary Nerve root and plexus disorder, unspecified Acute pain of left shoulder documented in this encounter [facility]Evaluation note* Diagnosis Other nerve root and plexus disorders- Primary Acute pain of left shoulder Acute pain of right shoulder [facility] Additional Instructions Obtain Elsy pot and perform nasal irrigations twice a daySt. Rita'S Hospital Work Phone: Hospital Discharge instructions Additional Instructions Please return to emergency department for any new or worrisome symptoms including any chest pain, shortness of breath, vomiting, fever. Take all antibiotics even if you start feeling better.[facility] Work Phone: Hospital Discharge instructions Additional Instructions Push fluids Zofran for nausea vomiting Follow-up with the GI specialist as discussed for possible colonoscopy Return here if any problems persist or worsen If you are able to collect a urine specimen take it to the lab.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) Localized swelling, mass or lump of neck Procedures CT CHEST W IVCON CAT SCAN OF CHEST CONTRAST Racquel Cole MD [address] [address] [place] [address] Referral IDStatusReasonStart DateExpiration DateVisits RequestedVisits [id number] Auto-Generated Referral * Diagnostic Procedure Only (Routine) - ClosedSpecialtyDiagnoses / Procedures Referred By ContactReferred To ContactCT IMAGING Diagnoses Malignant neoplasm of head, face and neck (HCC) Lung nodules 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 HospitalReason for referral (narrative)No reason for referral information availablePike Community Hospital Work Phone: Redduh for visit Narrative* Auth/CertSpecialty Diagnoses / ProceduresReferred By ContactReferred To Contact Diagnoses Cervical radiculopathy Senile osteoporosis Cervical radiculopathy [M54.12] Senile osteoporosis [M81.0] Procedures CA ARTHRD ANT INTERBODY DECOMPRESS CERVICAL BELW C2 CA ARTHRD ANT INTERBODY DECOMPRESS CERVICAL BELW C2 CA ARTHRD ANT INTERDY CERVCL BELW C2 EA ADDL NTRSPC CA ALLOGRAFT FOR SPINE SURGERY ONLY STRUCTURAL CA MICROSURG TQS REQ USE OPERATING MICROSCOPE Fusion Spine Anterior Cervical and Discectomy C5-6, C6-7 Doretha Harris MD [address] [facility] [place] [address] Phone: tel: fax: [place] [place] [address] [place] [address] fax: Referral IDStatusReasonStart DateExpiration DateVisits RequestedVisits [id number] [facility] Work Phone: Reason for visit Narrative* Injection (Routine) - ClosedSpecialtyDiagnoses / ProceduresReferred By ContactReferred To Contact Neurology Diagnoses Acute pain of left shoulder Procedures CA OFFICE/OUTPATIENT [facility] 60 MINUTES Oziel Cadena MD [address] [facility] [address] [place] [address] Phone: tel: fax: Oziel Cadena MD [address] [place] [address] Phone: tel: fax: Referral IDStatusReasonStart DateExpiration DateVisits RequestedVisits [id number] Perform Procedure / [facility] Summary Purpose [...] RecordedPatient RepresentativeExplanationLiving Will10/05/2023 9:39 AM Date ActivatedDate GcicbguzcffIuolzxjz66/23/2024 6:57 PMQuestionAnswerComments Plan of Care:* Code Status Discussion Completed Decision Maker:* Patient Date ActivatedDate KpatmnvyjaxMivmirot80/23/2024 11:50 AM04/09/2024 6:57 PM QuestionAnswerCommentsPlan of Care:* Code Status Discussion Completed Decision Maker:* Patient Date ActivatedDate CgnxzdwvdioUxjdtvqk88/23/2024 6:57 PMQuestionAnswerComments Plan of Care:* Code Status Discussion Completed Decision Maker:* Patient Date ActivatedDate JuvramffpdzKtthumgu28/23/2024 11:50 AM04/09/2024 6:57 PM QuestionAnswerCommentsPlan of Care:* [...] 2025 10:28am Nicotine dependence with current use [facility]2024 10:28am PAD (peripheral artery disease) [facility] 2024 10:28am Screening for prostate cancer February [...] 2025 10:28am Nicotine dependence with current use [facility]2024 10:28am PAD (peripheral artery disease) [facility] 2024 10:28am S/P cervical discectomy February 19, [...] 2025 10:28am Nicotine dependence with current use [facility] 2024 10:28am PAD (peripheral artery disease) [facility] 2024 10:28am S/P cervical discectomy February 19 [...] (HCC) Procedures CONSULT TO NEUROSURGERY OFFICE/OUTPATIENT [facility] 60-74 MINUTES Racquel Cole MD [address] [place] [address] [place] [address] Referral IDStatusReasonStart DateExpiration DateVisits RequestedVisits [id number] PCP Requested Referral [id number] / ProceduresReferred By ContactReferred To ContactCT IMAGING Diagnoses Lung nodules Procedures CT CHEST W IVCON DIAGNOSTIC COMPUTED TOMOGRAPHY THORAX W/CONTRAST Racquel Cole MD [address] [place] [address] [place] [address] Ct Imaging Referral IDStatusReasonStart DateExpiration DateVisits RequestedVisits [id number] Review Auto-Generated Referral [id number] / ProceduresReferred By ContactReferred To ContactCT IMAGING Diagnoses Malignant neoplasm of head, face and neck (HCC) Procedures CT NECK SOFT TISSUE W IVCON CT SOFT TISSUE NECK W/CONTRAST MATERIAL Racquel Cole MD [address] [place] [address] [place] [address] Ct Imaging Referral IDStatusReasonStart DateExpiration DateVisits RequestedVisits [id number] Review Auto-Generated Referral Reason *FU 10/31 Evaluate and Treat Brainstem Lesion 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) Diagnosis 2 Cervical pain (neck) (M54.2) Diagnosis 3 Pressure in head (R5 1.9) Referral Organization [facility] Referring Provider First Name Griselda Referring Provider Last Name Darling Referring Provider Specialty Family Prac henny Referred Organization [facility] Referred Provider Oziel Cadena Referred Address [address] [place],[address] Referral Priority Routine SpecialtyDiagnoses / ProceduresReferred By ContactReferred To ContactMR IMAGING Diagnoses 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HCC) Procedures MRI BRAIN WO/W IVCON MRI BRAIN BRAIN STEM W/O W/CONTRAST MATERIAL Kelly Perez PA-C [address] [place] [address] Mr Imaging Referral IDStatusReasonStart DateExpiration DateVisits RequestedVisits [id number] Auto-Generated Referral /[id number] IDStatusReasonStart DateExpiration DateVisits RequestedVisits [id number] Auto-Generated Referral / Reason pt requesting n ot Dr. Verma, but can see other providers from that group evaluate and treat tinnitus and balance issues Diagnosis 1 Tinnitus of both ear s (H93.13) Diagnosis 2 Balance disorder (R2 6.89) Referral Organization [facility] Cardiology Referring Provider First Name Lilliam Referring Provider Last Name Kamla Referring Provider Specialty Cardiovascu lar Disease Referred Organization [facility] Referred Provider Manuela Ballesteros Referred Address ,[place], [place],[address] Referred Provider Specialty Ear, Nose an d Throat Referral Priority Routine General Notes ClarenceYessica roman 12:40:36 PM >received today, pt has medicaid insurance, will send to Dr. Ballesteros, attachments made, waiting for notes to be locked Reason consult and treat Diagnosis 1 PAD (peripheral arnie ry disease) (I73.9) Referral Organization [facility] Referring Provider First Name Griselda Referring Provider Last Name Darling Referring Provider Specialty Family Prac henny Referred Organization [facility] Referred Provider Filipe Hess Referred Address [address] 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) Procedures CT CHEST W IVCON DIAGNOSTIC COMPUTED TOMOGRAPHY THORAX W/CONTRAST Racquel Cole MD [address] [place] [address] [place] [address] [place] [address] Referral IDStatusReasonStart DateExpiration DateVisits RequestedVisits [id number] Auto-Generated Referral [id number] / ProceduresReferred By ContactReferred To ContactCT IMAGING Diagnoses 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) Procedures CT NECK SOFT TISSUE W IVCON CT SOFT TISSUE NECK W/CONTRAST MATERIAL Racquel Cloe MD [address] [place] [address] [address] [place] [id number] Ct Imaging [place] [address] Referral IDStatusReasonStart DateExpiration DateVisits RequestedVisits [id number] Auto-Generated Referral 1Referral IDStatusReasonStart DateExpiration DateVisits RequestedVisits [id number] Auto-Generated Referral 1Referral IDStatusReasonStart DateExpiration DateVisits RequestedVisits [id number] Auto-Generated Referral [id number] / ProceduresReferred By ContactReferred To ContactCT IMAGING Diagnoses Lung nodules Procedures CT CHEST W IVCON DIAGNOSTIC COMPUTED TOMOGRAPHY THORAX W/CONTRAST Racquel Cole MD [address] [place] [address] [place] [address] [place] [address] Referral IDStatusReasonStart DateExpiration DateVisits RequestedVisits [id number] Auto-Generated Referral /[id number] / ProceduresReferred By ContactReferred To ContactCT IMAGING Diagnoses Malignant neoplasm of head, face and neck (HCC) Procedures CT NECK SOFT TISSUE W IVCON CT SOFT TISSUE NECK W/CONTRAST MATERIAL Racquel Cole MD [address] [address] Ct Imaging [facility] Referral IDStatusReasonStart DateExpiration DateVisits RequestedVisits [id number] Auto-Generated Referral /[id number] / ProceduresReferred By ContactReferred To ContactRadiology 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 [place] [address] [place] [id number] Referral IDStatusReasonStart DateExpiration DateVisits RequestedVisits [id number] Review Perform Procedure /[id number] / ProceduresReferred By ContactReferred To ContactRadiology 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 tumor perfusion protocol w and wo IV contrast Shimon Heaton PA-C [address] [place] [address] Referral IDStatusReasonStart DateExpiration DateVisits RequestedVisits [id number] Perform Procedure /[id number] / ProceduresReferred By ContactReferred To ContactRadiology Diagnoses Cervical radiculopathy Procedures XR cervical spine complete 6+ views Doretha Harris MD [address] [facility], [address] [address] Referral IDStatusReasonStauburn DateExpiration DateVisits RequestedVisits [id number] Perform Procedure /[id number] / ProceduresReferred By ContactReferred To ContactRadiology Diagnoses Senile osteoporosis Procedures XR DEXA bone density axial skeleton w VFA Doretha Harris MD [address] [facility], [address] [address] Referral IDStatusReasonStart DateExpiration DateVisits RequestedVisits [id number] Review Perform Procedure [id number] / ProceduresReferred By ContactReferred To Contact Diagnoses Cervical radiculopathy Senile osteoporosis Procedures ECG 12 lead Doretha Harris MD [address] [facility], [place] [phone] Referral IDStatusReasonStart DateExpiration DateVisits RequestedVisits [id number]/24/20247/24/404379JgadbivwzRdkftkesr / Procedures Referred By ContactReferred To ContactRadiology Diagnoses Cervical radiculopathy Procedures XR DEXA bone density Doretha Harris MD [address] [facility], [place] [phone] Referral IDStatusReasonStart DateExpiration DateVisits RequestedVisits [id number] Perform Procedure Chief Complaint Patient referred by [...] content) DATE CREATED AUTHOR 08/01/2019 [facility] DATE CREATED AUTHOR AUTHOR'S ORGANIZ ATION 11/05/2021 [employer] DATE CREATED AUTHOR AUTHOR'S ORGANIZ ATION 01/19/2022 [facility] DATE CREATED AUTHOR AUTHOR'S ORGANIZ ATION 10/02/2022 [facility] DATE CREATED AUTHOR AUTHOR'S ORGANIZ ATION 12/25/[address] [facility] DATE CREATED AUTHOR AUTHOR'S ORGANIZ ATION 08/03/2023 [facility] DATE CREATED AUTHOR AUTHOR'S ORGANIZ ATION 02/13/2024 [facility] DATE CREATED AUTHOR AUTHOR'S ORGANIZ ATION 10/27/2024 [facility] DATE CREATED AUTHOR AUTHOR'S ORGANIZ ATION 11/13/2024 [facility] DATE CREATED AUTHOR AUTHOR'S ORGANIZ ATION 01/01/2025 [facility] DATE CREATED AUTHOR AUTHOR'S ORGANIZ ATION 01/03/2025 [facility] DATE CREATED AUTHOR AUTHOR'S ORGANIZ ATION 03/21/2025 [facility] DATE CREATED AUTHOR AUTHOR'S ORGANIZ ATION 03/23/2025 [facility] DATE CREATED AUTHOR AUTHOR'S ORGANIZ ATION 04/03/2025 [facility] DATE CREATED AUTHOR AUTHOR'S ORGANIZ ATION 04/30/2025 [facility] Source Comments (unrecognize d section and content) In the event this informatio n is protected by the Federal Confidentiality of Alcohol and Drug Abuse Patient Records regulations: The Federal rules restrict any use of the information to criminally investigate or prosecute any alcohol or drug abuse patient.[facility] HospitalIn the event this information is protected by the Federal Confidentiality of Alcohol and Drug Abuse Patient Records regulations: The Federal rules restrict any use of the information to criminally investigate or prosecute any alcohol or drug abuse patient.[facility] HospitalIn the event this information is protected by the Federal Confidentiality of Alcohol and Drug Abuse Patient Records regulations: The Federal rules restrict any use of the information to criminally investigate or prosecute any alcohol or drug abuse patient.[facility] HospitalIn the event this information is protected by the Federal Confidentiality of Alcohol and Drug Abuse Patient Records regulations: The Federal rules restrict any use of the information to criminally investigate or prosecute any alcohol or drug abuse patient.[facility] HospitalIn the event this information is protected by the Federal Confidentiality of Alcohol and Drug Abuse Patient Records regulations: The Federal rules restrict any use of the information to criminally investigate or prosecute any alcohol or drug abuse patient.[facility] HospitalIn the event this information is protected by the Federal Confidentiality of Alcohol and Drug Abuse Patient Records regulations: The Federal rules restrict any use of the information to criminally investigate or prosecute any alcohol or drug abuse patient.[facility] HospitalIn the event this information is protected by the Federal Confidentiality of Alcohol and Drug Abuse Patient Records regulations: The Federal rules restrict any use of the information to criminally investigate or prosecute any alcohol or drug abuse patient.[facility] HospitalIn the event this information is protected by the Federal Confidentiality of Alcohol and Drug Abuse Patient Records regulations: The Federal rules restrict any use of the information to criminally investigate or prosecute any alcohol or drug abuse patient.[facility] HospitalIn the event this information is protected by the Federal Confidentiality of Alcohol and Drug Abuse Patient Records regulations: The Federal rules restrict any use of the information to criminally investigate or prosecute any alcohol or drug abuse patient.[facility] HospitalIn the event this information is protected by the Federal Confidentiality of Alcohol and Drug Abuse Patient Records regulations: The Federal rules restrict any use of the information to criminally investigate or prosecute any alcohol or drug abuse patient.[facility] HospitalIn the event this information is protected by the Federal Confidentiality of Alcohol and Drug Abuse Patient Records regulations: The Federal rules restrict any use of the information to criminally investigate or prosecute any alcohol or drug abuse patient.[facility] HospitalIn the event this information is protected by the Federal Confidentiality of Alcohol and Drug Abuse Patient Records regulations: The Federal rules restrict any use of the information to criminally investigate or prosecute any alcohol or drug abuse patient.[facility] HospitalIn the event this information is protected by the Federal Confidentiality of Alcohol and Drug Abuse Patient Records regulations: The Federal rules restrict any use of the information to criminally investigate or prosecute any alcohol or drug abuse patient.[facility] HospitalIn the event this information is protected by the Federal Confidentiality of Alcohol and Drug Abuse Patient Records regulations: The Federal rules restrict any use of the information to criminally investigate or prosecute any alcohol or drug abuse patient.[facility] HospitalIn the event this information is protected by the Federal Confidentiality of Alcohol and Drug Abuse Patient Records regulations: The Federal rules restrict any use of the information to criminally investigate or prosecute any alcohol or drug abuse patient.[facility] Reason for Visit (unrecogniz ed section and content) ReasonCommentsResultsReasonCommentsHead and Neck CancerSpecialtyDiagnoses / ProceduresReferred By ContactReferred To ContactHematology/Oncology / HEMATOLOGY/ONCOLOGY Diagnoses Follow-up examination 1 year follow up LABS WITH CT Procedures EST PATIENT Racquel Cole MD [facility] [place] [address] Racquel Cole MD [address] [place] [address] [place] [address] Referral IDStatusReasonStart DateExpiration DateVisits RequestedVisits [id number]/28/202212/31/[id number] Information NeurosurgeryReasonCommentsEstablished PatientSpecialtyDiagnoses / Procedures Referred By ContactReferred To ContactHematology/Oncology / HEMATOLOGY/ONCOLOGY Diagnoses 2 week phone follow up [phone] Procedures PHYS/QHP TELEPHONE EVALUATION 5-10 MIN PROVIDER SPECIALTY PHONE CALL Racquel Cole MD [address] [place] [address] Racquel Cole MD [facility] [place] [address] Referral IDStatusReasonStart DateExpiration DateVisits RequestedVisits [id number]/12/202212/085559ThjpqoImlddhkyLzjeivNwiznase Referral--oldReasonCommentsAppointmentReasonCommentsNew PatientSpecialty Diagnoses / ProceduresReferred By ContactReferred To ContactNeurology / BRAIN TUMOR Diagnoses Hydrocephalus (HCC) Hydrocephalus Procedures OFFICE/OUTPATIENT NEW MODERATE MDM 45-59 MINUTES NEW SURGICAL Oziel Cadena MD [address] [address] Kelly Perez PA-C [address] [place] [address] Referral IDStatusReasonStart DateExpiration DateVisits RequestedVisits [id number]/29/202312/723078AtnirwZklifvkrHgbdurq Question ReasonCommentsRadiology MRISpecialtyDiagnoses / ProceduresReferred By Contact Referred To ContactMR IMAGING Diagnoses 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HCC) Procedures MRI BRAIN WO/W IVCON MRI BRAIN BRAIN STEM W/O W/CONTRAST MATERIAL Kelly Perez PA-C [address] [place] [address] Mr Imaging Referral IDStatusReasonStauburn DateExpiration DateVisits RequestedVisits [id number] Auto-Generated Referral /[id number] Patient VisitReasonCommentsHead and Neck Cancer1 year follow upReasonCommentsRadiology CTSpecialtyDiagnoses / Procedures Referred By ContactReferred To ContactCT IMAGING Diagnoses 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) Procedures CT NECK SOFT TISSUE W IVCON CT SOFT TISSUE NECK W/CONTRAST MATERIAL Racquel Cole MD [address] [place] [address] [place] [address] Ct Imaging [place] [address] Referral IDStatusReasonStart DateExpiration DateVisits RequestedVisits [id number] Auto-Generated Referral /[id number] / ProceduresReferred By ContactReferred To ContactCT IMAGING Diagnoses Lung nodules Procedures CT CHEST W IVCON DIAGNOSTIC COMPUTED TOMOGRAPHY THORAX W/CONTRAST Racquel Cole MD [address] [place] [address] [place] [address] Ct Imaging [facility] Referral IDStatusReasonart DateExpiration DateVisits RequestedVisits [id number] Auto-Generated Referral /[id number] / ProceduresReferred By ContactReferred To ContactCT IMAGING Diagnoses Malignant neoplasm of head, face and neck (HCC) Lung nodules 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) Localized swelling, mass or lump of neck Procedures CT NECK SOFT TISSUE W IVCON CONTRAST CAT OF NECK TISSUE Racquel Cole MD [address] [place] [address] [address] [place] [phone] Imaging [place] [address] Ref[facility]Status[facility] DateExpiration DateVisits RequestedVisits [id number] Auto-Generated Referral /[id number] PainTinglingNumbnessSpecialtyDiagnoses / ProceduresReferred By ContactReferred To ContactRadiology 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 tumor perfusion protocol w and wo IV contrast Shimon Heaton PA-C [address] [place] [address] Ref[facility] DateExpiration DateVisits RequestedVisits [id number] Perform Procedure [id number] PainSpecialtyDiagnoses / ProceduresReferred By ContactReferred To Contact Diagnoses Cervical radiculopathy Senile osteoporosis Procedures ECG 12 lead Doretha Harris MD [address] [facility], [facility] [address] [place] [address] Referral IDStatusReasonStart DateExpiration DateVisits RequestedVisits [id number]/24/20247/24/[id number] / Procedures Referred By ContactReferred To ContactRadiology Diagnoses Cervical radiculopathy Procedures XR cervical spine complete 6+ views Doretha Harris MD [address] [facility], [facility] [address] [place] [address] Referral IDStatusReasonStart DateExpiration DateVisits RequestedVisits [id number] Perform Procedure [id number] / ProceduresReferred By ContactReferred To ContactRadiology Diagnoses Cervical radiculopathy Procedures XR DEXA bone density Doretha Harris MD [address] [facility], [facility] [address] [place] [address] Referral IDStatusReasonStart DateExpiration DateVisits RequestedVisits [id number] Perform Procedure [id number]-ze Spine SurgeryPain in left shoulder. 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) Procedures CT CHEST W IVCON DIAGNOSTIC COMPUTED TOMOGRAPHY THORAX W/CONTRAST Racquel Cole MD [address] [place] [address] [place] [address] Phone: tel: fax: [place] [address] Referral IDStatusReasonStart DateExpiration DateVisits RequestedVisits [id number] Auto-Generated Referral /[id number] Check Care Teams (unrecognized sec tion and content) Team MemberRelationshipSpecialtyStart DateEnd Date Griselda Krause [address] [place] [address], [place] [address] PCP - GeneralFamily Practice11/20/18 Griselda Krause [address] [place] [address], [place] [address] ReferringFamily Practice11/20/18Team MemberRelationshipSpecialtyStart DateEnd Date Griselda Krause [address] [place] [address], [place] [address] PCP - GeneralFamily Practice11/20/18 Griselda Krause [address] [place] [address], [place] [address] ReferringFamily Practice11/20/18Team MemberRelationshipSpecialtyStart DateEnd Date Griselda Krause [address] [place] [address], [facility] PCP - GeneralFamily Practice11/20/18 Griselda Krause [address] [place] [address], [place] [address] ReferringFamily Practice11/20/18Team MemberRelationshipSpecialtyStart DateEnd Date Griselda Krause [address] [place] [address], [place] [address] PCP - GeneralFamily Practice11/20/18 Griselda Krause [address] [place] [address], [place] [address] ReferringFamily Practice11/20/18Team MemberRelationshipSpecialtyStart DateEnd Date Griselda Krause [address] [place] [address], [place] [address] [facility] - [facility]/18 Griselda Krause [address] [place] [address], [place] [address] [facility]erring[facility] Medicine11/20/18Team MemberRelationshipSpecialtyStart DateEnd Date Griselda Krause [address] [place] [address], [place] [address] PCP - [facility] Medicine11/20/18 DarlingGriselda [address] [place] [address], [place] [address] [facility]erring[facility]11/20/18 Team Status: Inactive Member Role Status [...] Primary Care Provider Active Nikole Mota , ADMISSIONS OFFICER ENVIRONMENTAL COMPLIANCE TECHNICIAN-CAttending ProviderActive Team Status: Inactive Member Role Status Poornima Krause , DO Primary Care Provider Active Rafa Cuevas ProviderActive Team Status: Inactive Member Role Status Poornima Krause , DO Primary Care Provider Active Nikole Mota , ADMISSIONS OFFICER ENVIRONMENTAL COMPLIANCE TECHNICIAN-CAttending ProviderActiveTeam MemberRelationship SpecialtyStart DateEnd Date Griselda Krause [address] [place] [address], [place] [address] PCP - [facility] Medicine11/20/18 Griselda Krause [address] [place] [address], [place] [address] ReferringFamily Medicine11/20/18 Oziel Cadena MD [address] [facility] ROTHMAN [address] [place] [address], [place] [address] ReferringNeurology08/18/22Team MemberRelationshipSpecialtyStart DateEnd [facility] Griselda Krause [address] [place] [address], [place] [address] PCP - GeneralFamily Medicine11/20/[address] [place] [address] [facility]erring[facility] Medicine11/20/18 Oziel Cadena MD [address] [facility] [address] [place] [address] ReferringNeurology08/18/22Team MemberRelationshipSpecialtyStart DateEnd [facility] Griselda Krause [address] [place] [address], [place] [address] [facility] - [facility]11/20/18 Griselda Krause [address] [place] [address], [place] [address] ReferringFamily Medicine11/20/18 Oziel Cadena MD [address] ROTHMAN [address] [place] [address], [place] [address] ReferringNeurology08/18/22 Team Status: Inactive Member Role Status [...] DateEnd Date Griselda Krause DO [address] [facility] [place] [phone] PCP - [facility]02/13/23Team MemberRelationshipSpecialtyStart DateEnd Date Griselda Krause, [address] [place] [facility] [place] [address] PCP - [facility]02/13/23 Team Status: Inactive Member Role Status Poornima Krause DO Primary Care Provider Active Sta rt: May 04, 2023 End: May 04, 2023Nikole Mota APRN ENVIRONMENTAL COMPLIANCE TECHNICIAN-CAttending Provider ActiveStart: May 04, 2023 End: May [...] MemberRelationshipSpecialtyStart DateEnd Date Griselda Krause DO [address] [facility] [address] [place] [address] PCP - General01/03/19 [place] [address] [place] [address] Consulting PhysicianHematology and Oncology10/05/23 Team Status: Inactive [...] 29, 2023Team MemberRelationshipSpecialtyStart DateEnd Date Griselda Krause [address] [place], [place] [phone] PCP - GeneralFamily Medicine11/20/18 Griselda Krause [address] [place], [place] [phone] ReferringFamily Medicine11/20/18 Oziel Cadena MD [address] [facility] [address] [address] ReferringNeurology08/18/22 Team Status: Active Member Role Status Dates Lilliam Cason MD Education Professional Active Saira Stewart Care ProviderActive Team Status: Inactive Member Role Status Dates Griselda Krause DO Primary Care Provide r, Attending Provider Active Start: December 03, 2023 End: December 03, 2023 Team Status: Inactive Member Role Status Dates Griselda Krause DO Primary Care Provide r, Attending Provider Active Start: January 31, 2024 End: January 31, 2024Team MemberRelationshipSpecialtyStart DateEnd Date Griselda Krause [address] [place] [phone] PCP - GeneralFamily Medicine11/20/18 Griselda Krause [address] [place] [phone] ReferringFamily Medicine11/20/18 Oziel Cadena MD [address] [facility] [address] [place] [address], [place] [address] ReferringNeurology08/18/22Team MemberRelationshipSpecialtyStart DateEnd Date Griselda Krause [address] [place], [place] [phone] PCP - GeneralFamily Medicine11/20/18 Griselda Krause [address] [place], [place] [phone] ReferringFamily Medicine11/20/18 Oziel Cadena MD [address] [facility] [address]man [address] [place] [address] ReferringNeurology08/18/22Team MemberRelationshipSpecialtyStart DateEnd Date Griselda Krause [address] [place] [phone] PCP - GeneralFamily Medicine11/20/18 Griselda Krause [address] [place] [phone] ReferringFamily Medicine11/20/18Team MemberRelationshipSpecialtyStart DateEnd Date Griselda Krause DO [address] [place] [address] PCP - General01/03/19 [place] [address] [place] [address] Consulting PhysicianHematology and Oncology10/05/23 Solomon Narayanan PA-C [address] [facility], [address] [address] Physician AssistantNeurosurgery12/12/23 Team Status: Inactive Member Role Status Dates Griselda Krause DO Primary Care Provide r, Attending Provider Active Start: April 01, 2024 End: April 01, 2024Team MemberRelationshipSpecialtyStart DateEnd Date Griselda Krause DO [address] [place] [address] PCP - General01/03/19 [place] [address] [place] [address] Consulting PhysicianHematology and Oncology10/05/23 Solomon Narayanan PA-C [address] [facility], [address] [address] Physician AssistantNeurosurgery12/12/23Team MemberRelationshipSpecialtyStart Date End Date Griselda Krause DO [address] [place] [address] PCP - General01/03/19 [place] [address] [place] [address] Consulting PhysicianHematology and Oncology10/05/23 Solomon Narayanan PA-C [address] [place] [address] Physician AssistantNeurosurgery12/12/23 Team Status: Inactive Member Role Status Dates Griselda Krause DO Primary Care Provider Active Sta rt: April 28, 2024 End: April 28, 2024Linda Jasson Casonending ProviderActiveStart: April 28, 2024 End: April 28, 2024Team MemberRelationshipSpecialtyStart DateEnd Date Griselda Krause DO [address] [place] [address] PCP - GeneralFamily Medicine02/13/23Team MemberRelationshipSpecialtyStart DateEnd Date Griselda Krause DO [address] [place] [phone] PCP - GeneralFamily Medicine02/13/23Team MemberRelationshipSpecialtyStart DateEnd Date Griselda Krause DO [address] [place], [place] [phone] PCP - General01/03/19 [place] [address] [place] [address] Consulting PhysicianHematology and Oncology10/05/23 Solomon Narayanan PA-C [address] [facility], [address] [address] Physician AssistantNeurosurgery12/12/23Team MemberRelationshipSpecialtyStart Date End Date Griselda Krause DO [address] [place] [address] PCP - General01/03/19 [place] [address] [place] [address] Consulting PhysicianHematology and Oncology10/05/23 Solomon Narayanan PA-C [address] [facility], [address] [address] Physician AssistantNeurosurgery12/12/23Team MemberRelationshipSpecialtyStart Date End Date Griselda Krause DO [address] [place] [address] PCP - General01/03/19 [place] [address] [place] [address] Consulting PhysicianHematology and Oncology10/05/23 Solomon Narayanan PA-C [address] [facility], [address] [address] Physician AssistantNeurosurgery12/12/23Team MemberRelationshipSpecialtyStart Date End Date Griselda Krause DO [address] [place] [address] PCP - General01/03/19 [place] [address] [place] [address] Consulting PhysicianHematology and Oncology10/05/23 Solomon Narayanan PA-C [address] [facility], [address] [address] Physician AssistantNeurosurgery12/12/23Team MemberRelationshipSpecialtyStart Date End Date Griselda Krause DO [address] [place] [address] PCP - General01/03/19 [place] [address] [place] [address] Consulting PhysicianHematology and Oncology10/05/23 Solomon Narayanan PA-C [address] [facility], [address] [address] Physician AssistantNeurojaleesarlamberty12/12/23Team MemberRelationshipSpecialtyStart Date End Date Griselda Krause DO [address] [place] [address] PCP - General01/03/19 [place] [address] [place] [address] Consulting PhysicianHematology and Oncology10/05/23 Solomon Narayanan PA-C [address] [facility], [address] [address] Physician AssistantNeurosurgery12/12/23 Team Status: Inactive Member Role Status Dates Griselda Krause DO Primary Care Provider Active Sta rt: June 24, 2024 End: June 24, 2024Mingo Blanton ProviderActiveStart: June 24, 2024 End: June 24, 2024Team MemberRelationshipSpecialtyStart DateEnd Date Griselda Krause DO [address] [place], [place] [phone] PCP - General01/03/19 [place] [address] [place] [address] Consulting PhysicianHematology and Oncology10/05/23 Solomon Narayanan PA-C [address] [place] [address] Physician AssistantNeurosurgery12/12/23Team MemberRelationshipSpecialtyStart Date End Date Griselda Krause DO [address] [place] [phone] PCP - GeneralFamily Medicine02/13/23 Team Status: Inactive Member Role Status Dates Griselda Krause DO Primary Care Provide r, Attending Provider Active Start: July 03, 2024 End: July 03, 2024Team MemberRelationshipSpecialtyStart DateEnd Date Griselda Krause DO [address] [place] [address] PCP - GeneralFamily Medicine02/13/23Team MemberRelationshipSpecialtyStart DateEnd Date Griselda Krause DO [address] [place] [address] PCP - GeneralFamily Medicine02/13/23 Team Status: Active Member Role Status Dates Griselda Krause DO Primary Care Provider Active Sta rt: September 11, 2024 Jasson Mendozaending ProviderActiveStart: September 11, 2024 Team Status: Inactive Member Role Status Poornima Krause DO Primary Care Provider Active Sta rt: September 11, 2024 End: September 11, 2024Keysha Guy ENVIRONMENTAL COMPLIANCE TECHNICIAN-CAttenyong ProviderActiveStart: September 11, 2024 End: September 11, 2024Team MemberRelationshipSpecialtyStart DateEnd Date Griselda Krause DO [facility] [place] [address] PCP - [facility]02/13/23 Team Status: Inactive Member Role Status [...] DateEnd Date Griselda Krause DO PCP - [facility]02/13/23 Team Status: Inactive Member Role Status [...] DateEnd Date Griselda Krause DO [address] [place] [address] PCP - General01/03/19 [place] [address] [place] [address] Consulting PhysicianHematology and Oncology10/05/23 Solomon Narayanan PA-C [address] [place] [address] Physician AssistantNeurosurgery12/12/23Team MemberRelationshipSpecialtyStart Date End Date Griselda Krause DO [address] [place] [address] PCP - General01/03/19 [place] [address] [place] [address] Consulting PhysicianHematology and Oncology10/05/23 Solomon Narayanan PA-C [address] [place] [address] Physician AssistantNeurosurgery12/12/23 Team Status: Inactive Member Role Status Dates Griselda Krause DO Primary Care Provider Active Sta rt: October 27, 2024 End: October 27, 2024LinJasson Estevezending ProviderActiveStart: October 27, 2024 End: October 27, 2024Team MemberRelationshipSpecialtyStart DateEnd Date Griselda Krause [address] [place] [phone] PCP - GeneralFamily Medicine11/20/18 Griselda Krause [address] [place], [place] [phone] ReferringFamily Medicine11/20/18 Oziel Caedna MD [address] [facility] [address] [place] [address] ReferringNeurology08/18/22Team MemberRelationshipSpecialtyStart DateEnd Date Griselda Krause [address] [place] [phone] PCP - GeneralFamily Medicine11/20/18 Griselda Krause [address] [place] [phone] ReferringFamily Medicine11/20/18 Oziel Cadena MD [address] [place] [address] ReferringNeurology08/18/22Team MemberRelationshipSpecialtyStart DateEnd Date Griselda Krause DO [facility] - [facility]02/13/23 Team Status: Active Member Role Status [...] Krause DO [facility] - [facility]02/13/23 Team Status: Inactive Member Role Status Dates Griselda Krause DO Primary Care Provide r, Attending Provider Active Start: 2024 End: November 24, 2024Team MemberRelationshipSpecialtyStart DateEnd Date Griselda Krause DO [facility]02/13/23 Team Status: Active Member Role Status [...] DateEnd Date Griselda Krause DO PCP - [facility]02/13/23Team MemberRelationshipSpecialtyStart DateEnd Date Griselda Krause DO [facility]02/13/23 Team Status: Active Member Role Status [...] DateEnd Date Griselda Krause DO PCP - [facility]02/13/23 Team Status: Inactive Member Role Status Poornima Krause DO Primary Care Provider Active Sta rt: February 26, 2025 End: February 26natalya Krause , DOAttending ProviderActiveStart: February 26, 2025 End: February 26, 2025Team MemberRelationshipSpecialtyStart DateEnd Date Griselda Krause DO PCP - [facility]02/13/23 Team Status: Inactive Member Role Status Poornima Krause DO Primary Care Provider Active Sta rt: April 01, 2025 End: April 01natalya Krause , DOAttending ProviderActiveStart: April 01, 2025 End: April 01, 2025 Team Status: Active Member Role/Relationship Status Dates Lilliam Cason MD Education Professional Active Cate [facility]Ex[facility] ProviderActive Team Status: Active Member Role/Relationship Status [...] (New Bag - Provider: Shelly Mullins Capp [facility]) * 1630 (Stopped - Provider: NAVEEN [...] BE BASED ON THE PRIMARY CLINICAL RECORDS. [facility]. provides no warranty or guarantee of the accuracy or completeness of information in this document.
== END 2025-05-29 13:33 | disposition home or self-care (01) ==
LOC: MRI 13:34
PROVIDERS: PCP Family Medicine; Visit Provider Nurse Practitioner
DX: M48.062 Spinal stenosis, lumbar region with neurogenic claudication (principal)
CPT/HCPCS: 72148

== ENCOUNTER 2025-06-15 12:25 | Outpatient (OUT) | payer MEDICARE, OTHER, SELFPAY ==
--- OUTSIDE RECORDS SUMMARY | 2025-06-03 07:10 | XMS_ITS | Encounter Summary ---
Author Organization [facility] Address [address] [place] [address] Care Team Providers Care Brass Roller Name Role Phone Darling Jax JOSÉ Primary Care Provider [phone] Lilliam Cason MD Unavailable [phone] Reason for Visit * Auth/Cert (Routine)SpecialtyDiagnoses / ProceduresReferred By ContactReferred To Contact Diagnoses Chronic pain syndrome Chronic pain syndrome [G89.4] Procedures [place] RAYMOND IMPLTJ NSTIM ELTRDS PLATE/PADDLE EDRL WV INSJ/RPLCMT SPINAL NPG/RCVR POCKET CRTJ&CONNJ C4 LAMINOTOMY FOR INSERTION, SPINAL CORD STIMULATOR C4 LAMINOTOMY FOR INSERTION, SPINAL CORD STIMULATOR Isaias Ramirez MD [address] [place] [address] Phone: tel: fax: [facility] Main Operating Room [address] [place] [address] Phone: tel: fax: Referral IDStatusReasonStart DateExpiration DateVisits RequestedVisits [id number] Encounter Details DateTypeDepartmentCare Team (Latest Contact Info)Pjnjseoudet09/17/2025 7:10 AM EST - 06/03/2025 1:16 PM ESTHospital Encounter [facility] Main Operating Room [address] [place] [address] Isaias Ramirez MD [address] [place] [address] Post-op pain (Primary Dx) Discharge Disposition: Home or Self Care (01) Social History Tobacco UseTypesPacks/DayYears UsedDateSmoking Tobacco: Every DayCigarettes0.5 52.7Started: 1972Smokeless Tobacco: NeverAlcohol UseStandard Drinks/Week CommentsNever0 (1 standard drink = 0.6 oz pure alcohol)PHQ-2AnswerDate Recorded Patient Health Questionnaire-2 Yuyrd852Humiliation, Afraid, Rape, and Kick questionnaireAnswerDate RecordedWithin the last year, have you been afraid of your partner or ex-partner?Patient unable to dxbvaf5005/25/2025Emotionally AbusedNot on file05/25/2025Physically AbusedNot on file05/25/2025Sexually Abused Not on file05/25/2025Sex and Gender InformationValueDate RecordedSex Assigned at FyjbiBfgx78/29/2025 1:20 PM EDTLegal QlsLwty1702/13/2025 9:31 AM EDTGender CxvsdufdYmpy16/29/2025 1:20 PM EDTSexual OrientationChoose not to disclose 02/13/2025 1:20 PM EDTdocumented as of this encounter Last Filed Vital Signs Vital SignReadingTime TakenCommentsBlood Cteopxpy143/6006/03/2025 12:25 PM EST Nrmlm873706/03/2025 12:25 PM MWBDrthertofje10.6 ??C (97.9 ??F)06/03/2025 12:25 PM ESTRespiratory Gqet08208/04/2024 12:25 PM ESTOxygen Ywldayjwzt54%06/03/2025 12:25 PM ESTInhaled Oxygen Concentration--Frcclb24.1 kg (152 lb 5.4 oz)06/03/2025 7:33 AM SVXYikswj610.7 cm (5' 8 )06/03/2025 7:33 AM ESTBody Mass Index23.16 06/03/2025 7:33 AM ESTdocumented in this encounter Functional Status documented as of this encounter Medications at Time of Discharge MedicationSigDispense QuantityRefillsLast FilledStart DateEnd Date albuterol 90 mcg/actuation inhaler Inhale 2 puffs every 4 (four) hours if needed.07/02/2023 aspirin 81 mg EC tablet Take 81 mg by mouth in the morning.04/14/2024 atorvastatin (Lipitor) 10 mg tablet Take 1 tablet by mouth in the morning. citalopram (CeleXA) 20 mg tablet Take 20 mg by mouth in the morning. clopidogrel (Plavix) 75 mg tablet Take 75 mg by mouth in the morning.06/27/2023 ezetimibe (Zetia) 10 mg tablet Take 10 mg by mouth in the morning.06/08/2023 folic acid-vit B6-vit B12 (Folbee) 2.5-25-1 mg tablet tablet Take 1 tablet by mouth in the morning. HYDROcodone-acetaminophen (Nazareth) 7.5-325 mg tablet 03/04/2025 hydrOXYzine HCL (Atarax) 25 mg tablet 05/26/2022 montelukast (Singulair) 10 mg tablet Take 10 mg by mouth.09/04/2022 pantoprazole (ProtoNix) 40 mg EC tablet Take 40 mg by mouth two times daily.03/15/2025 Praluent Pen 75 mg/mL pen injector Every 2 weeks, last dose 05/25/2508 pravastatin (Pravachol) 40 mg tablet Take 40 mg by mouth.07/06/2023 pregabalin (Lyrica) 50 mg capsule Take 50 mg by mouth at bedtime.06/30/2024 tiZANidine (Zanaflex) 4 mg capsule tizanidine 4 mg capsule take 1 capsule by mouth twice a day if needed for MUSCLE RAEXXGAFUZ23/14/2025 oxyCODONE (Roxicodone) 10 mg immediate release tablet Indications:Post-op painTake 1 tablet (10 mg) by mouth every 6 (six) hours if needed for severe pain (8-10 pain score) for up to 10 days. 40 tablet /documented as of this encounter H&P Notes * Isaias Ramirez MD - 06/03/2025 8:04 AM EST H&P reviewed. The patient was examined and there are no changes to the H&P. Source Note - Isaias Ramirez MD - 05/25/2025 8:30 AM EST Neurosurgery Clinic Note Chief Complaint: Chronic neck and shoulder pain, preop. Interval History: Jovani Kong is a 64 y.o. year-old male who presents for preoperative evaluation inadvance of a planned cervical laminotomy and placement of a [employer] spinal cord stimulation system. He denies substantial changes in his symptoms since he was last seen. He notes that pain continues to be quite problematic. In review of his history, he was first seen on 03/24/2025 in kind referral from [facility] for the management to discuss placement of a cervical spinal cord stimulation system. He has a historyof neck and left upper extremity pain which has been present for at least 10 years. It is graduallyprogressed and had been associated with pain and numbness with tingling in the 4th and 5th digits of left hand. He had been [facility] and had beenfound to have cervical spondylosis. He underwent a [...] spinal cord stimulation by Dr. Ramsey using check24 hardware. This resulted in a very substantial improvement in pain estimated at 80%. The patient noted improvement in functional abilities including the ability touse the left arm and to sleep. While [...] and Plavix after a prior PCTA. His frame nailer had furnished clearance for him to be off of these agents for his trial. Problem List: Problem List[1] Past Medical History: Medical History[2] Past Surgical History: Surgical History[3] Medications: Current Outpatient Medications Medication Instructions albuterol 90 mcg/actuation inhaler 2 puffs, Every 4 hours PRN aspirin 81 mg, Daily RT atorvastatin (Lipitor) 10 mg tablet 1 tablet, Daily RT citalopram (CeleXA) 20 mg tablet clopidogrel (PLAVIX) 75 mg, Daily RT ezetimibe (ZETIA) 10 mg, Daily RT folic acid-vit B6-vit B12 (Folbee) 2.5-25-1 mg tablet tablet 1 tablet, Daily RT HYDROcodone-acetaminophen (Nazareth) 7.5-325 mg tablet hydrOXYzine HCL (Atarax) 25 mg tablet montelukast (SINGULAIR) 10 mg pantoprazole (ProtoNix) 40 mg EC tablet Praluent Pen 75 mg/mL pen injector pravastatin (PRAVACHOL) 40 mg pregabalin (LYRICA) 50 mg, 2 times daily tiZANidine (Zanaflex) 4 mg capsule tizanidine 4 mg capsule take 1 capsule by mouth twice a day if needed for MUSCLE SPASTICITY Allergies: Allergies[4] Review of Systems: Review of Systems Musculoskeletal: Positive for arthralgias (LEFT shoulder), gait problem and neck pain. Exam: Vitals: Vitals: 05/25/25 0840 BP: 110/73 Pulse: (!) 42 Temp: 36.7 ??C (98 ??F) Body mass index is 23.26 kg/m??. General: Awake, alert, NAD. Well groomed. HEENT: Normocephalic, atraumatic. Neck supple without lymphadenopathy. Well- healed anterior cervical scar. Heart: Regular rate and rhythm. Lungs: Clear to auscultation bilaterally. Abdomen: Soft, non-tender, non-distended. Bowel sounds present. Extremities: No cyanosis or edema. No noted deformities. Neurologic: Appropriate affect during exam. Oriented x 3. Normal fluency and prosody of speech. Content appropriate and higher function appears intact. CN II-XII grossly intact. PERRL. EOMI. Face symmetric strength and sensation. Tongue midline. Shoulder shrug full strength and symmetric. Palate elevates symmetrically. Motor 5/5 throughout except for bilateral shoulder abduction 4+/5. No pronator drift. Sensation intact to light touch throughout. FTN intact. No ankle clonus. Lab: Lab on 05/25/2025 Component Date Value Ref Range Status aPTT 05/25/2025 28.1 25.0 - 35.0 Seconds Final Protime 05/25/2025 13.9 12.3 - 14.8 Seconds Final INR 05/25/2025 1.07 0.90 - 1.10 Final Auto WBC 05/25/2025 7.43 4.00 - 10.60 10*3/uL Final RBC 05/25/2025 4.24 4.20 - 5.70 10*6/uL Final Hemoglobin 05/25/2025 13.6 13.0 - 17.0 g/dL Final Hematocrit 05/25/2025 40.1 39.0 - 50.0 % Final MCV 05/25/2025 94.6 82.0 - 98.0 fL Final MCH 05/25/2025 32.1 27.0 - 33.0 pg Final MCHC 05/25/2025 33.9 32.0 - 35.0 g/dL Final RDW 05/25/2025 14.3 11.5 - 15.0 % Final Neutrophils % 05/25/2025 62.0 40.0 - 72.0 % Final Lymphocytes % 05/25/2025 30.3 20.0 - 45.0 % Final Monocytes % 05/25/2025 5.8 5.0 - 12.0 % Final Eosinophils % 05/25/2025 0.7 0.0 - 6.0 % Final Basophils % 05/25/2025 0.9 0.0 - 1.0 % Final Neutrophils Absolute 05/25/2025 4.61 1.60 - 7.60 10*3/uL Final Lymphocytes Absolute 05/25/2025 2.25 1.20 - 4.00 10*3/uL Final Monocytes Absolute 05/25/2025 0.43 0.10 - 1.00 10*3/uL Final Eosinophils Absolute 05/25/2025 0.05 0.00 - 0.50 10*3/uL Final Basophils Absolute 05/25/2025 0.07 0.00 - 0.20 10*3/uL Final Platelets 05/25/2025 273 150 - 400 10*3/uL Final nRBC % 05/25/2025 0.0 0 % Final Immature Granulocytes % 05/25/2025 0.3 0.0 - 1.0 % Final Immature Granulocytes Absolute 05/25/2025 0.02 0.00 - 0.20 10*3/uL Final Hospital Outpatient Visit on 05/25/2025 Component Date Value Ref Range Status Ventricular Rate 05/25/2025 79 BPM Incomplete Atrial Rate 05/25/2025 79 BPM Incomplete W[place] Interval 05/25/2025 296 ms Incomplete QRS DURATION 05/25/2025 64 ms Incomplete QT Interval 05/25/2025 382 ms Incomplete QTC CALCULATION(BAZETT) 05/25/2025 438 ms Incomplete P [place] 05/25/2025 72 degrees Incomplete R-[place] 05/25/2025 3 degrees Incomplete T Wave [place] 05/25/2025 57 degrees Incomplete Imaging: XR cervical spine 2 or 3 views 12/29/2024 Narrative Cervical spine. HISTORY: Cervical fusion 1 year [...] or bone lesion. Bilateral calcification carotid arteries. Impression No fracture. Internal fixation C5-C7. Moderate degenerative change cervical spine. ELECTRONICALLY SIGNED BY: Doroteo Matthews MD XR cervical spine 2 or 3 views [facility] Main [place] [address] [place] [address] XRay Report Signed Patient: Jovani Kong MR#: [id number] : 1960 Acct:[id number] Age/Sex: 63 / M ADM Date: 10/10/24 Loc: XD Room: Type: [facility] CLI Attending Dr: René Narayanan PA-C Copies to: René A Milks PAC Ordering Provider: René Narayanan PAC Date [...] Eubanks M.D. 10/10/2024 3:02 PM Dictation Location: [place] [address] Transcribed By: [facility] 10/10/24 1502 Dictated By: Dorothy Eubanks MD 10/10/24 1455 Signed By: <Electronically signed by MD Dorothy Eubanks in OV> 10/10/24 1502 Impression: Jovani Kong is a 64 y.o. male with a history of chronic left neck and shoulder pain after undergoinga prior C5-7 anterior cervical discectomy and fusion. Pain symptoms have persisted and interfere with his activities of daily living. He had undergone a trial of cervical spinal cord stimulation withsubstantial relief. Since last seen, approval to hold antiplatelet agents has been obtained. Today, the patient and I discussed a C4 laminotomy for placement of a cervical spinal cord stimulation system utilizing [employer] hardware. We discussed the surgery itself, its risk, its benefits, and the alternatives. We explicitly discussed the risk of neurologic injury. The patient wishes to move forward with surgery. Plan: We will plan for a C4 laminotomy for placement of the cervical spinal cord stimulation system utilizing [employer] hardware in the near future. A single antiplatelet agent may be restarted on postoperative day 2 and the second antiplatelet agent can likely be restarted between 7 and 10 days after surgery. A voice recognition system was used to compose this note. While attempts have been made to review dictation as it is transcribed, on occasion spoken words may be misinterpreted by the technology leading to omissions and inappropriate words or phrases. [1] Patient Active Problem List Diagnosis Acute effusion of left ear Acute left-sided thoracic back pain Acute sinusitis Age-related nuclear cataract of right eye Anxiety and depression Generalized anxiety disorder AV bloc first degree Brain mass Burning sensation CAD (coronary artery disease) Cardiac arrhythmia Central pontine myelinolysis (CMS/HCC) Cervical dystonia Cervical paraspinal muscle spasm Neck pain Cervical stenosis of spinal canal Cigarette nicotine dependence with nicotine-induced disorder Degeneration of cervical intervertebral disc Dizziness Dyshidrotic eczema Essential hypertension Glioma of brain (CMS/HCC) Heart block History of oral cancer Hyperlipidemia Impairment of balance Insomnia Cervical radiculopathy Cervico-occipital neuralgia Nerve root and plexus disorder Lumbar radiculopathy Radicular pain in left arm Lung nodules Malignant (primary) neoplasm, unspecified (CMS/HCC) Myalgia Myelitis (CMS/HCC) Osteoarthritis of hand Other abnormal findings on diagnostic imaging of central nervous system PAD (peripheral artery disease) Acute pain of left shoulder Pain in left arm Paresthesia of left lower extremity Preglaucoma, unspecified, right eye 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) Productive cough Pseudophakia Schwannoma Secondary and unspecified malignant neoplasm of lymph node, unspecified (CMS/HCC) Senile osteoporosis Skin sensation disturbance Brachial plexopathy Vertigo of central origin Visual disturbance Weakness Chronic pain syndrome [2] Past Medical History: Diagnosis Date Anxiety 1994 Arthritis 2020 Cancer (CMS/HCC) 2019 Colon polyp September 2023 DDD (degenerative disc disease), cervical 2020 Dysphagia Mar 2024 GERD (gastroesophageal reflux disease) September 2023 Hard to intubate 02-09-25 Scar tissue PAD (peripheral artery disease) May 2024 Peripheral neuropathy 2020 Spinal stenosis 2020 [3] Past Surgical History: Procedure Laterality Date ANTERIOR CERVICAL DISCECTOMY W/ FUSION Mar 2024 CATARACT EXTRACTION 2018 CERVICAL FUSION Mar 2024 COLONOSCOPY September 2024 CORONARY STENT PLACEMENT 2022 OTHER SURGICAL HISTORY Jan 2019 SPINE SURGERY 2023 [4] Allergies Allergen Reactions Cephalexin Hives Other Reaction(s): hives, Unknown documented in this encounter Miscellaneous Notes * Op Note - Isaias Ramirez MD - 06/03/2025 8:31 AM EST C4 LAMINOTOMY FOR INSERTION, SPINAL CORD STIMULATOR Operative Note Date: 06/03/2025 Location: [facility] OR Name: Jovani Kong, : 1960, Diagnosis Pre-op Diagnosis * Chronic pain syndrome [G89.4] Post-op Diagnosis * Chronic pain syndrome [G89.4] Procedures C4 LAMINOTOMY FOR INSERTION, SPINAL CORD STIMULATOR 99932 - [place] RAYMOND IMPLTJ NSTIM ELTRDS PLATE/PADDLE EDRL C4 LAMINOTOMY FOR INSERTION, SPINAL CORD STIMULATOR 46307 - [place] INSJ/RPLCMT SPINAL NPG/RCVR POCKET CRTJ&CONNJ Surgeons Primary: Isaias Ramirez MD Procedure Summary Anesthesia: General ASA: III Estimated Blood Loss: Minimal Drains: * None in log * Implants Type Name Action Serial No. Device ARTISAN 70CM 2X8 FRONT END SOFTWARE ENGINEER KIT Implanted [id number] Device WAVEWRITER ALPHA 16 IMPULSE GENERATOR KIT Implanted [id number] Staff: Communication Manager: Omar Cruz RN Cloth Mender: Velasquez Carcamo Scrub Person: Mackenzie Contreras CST [employer] Coordinator: Shubham Souza CSA [employer] Communication Manager: Hilton You RN [employer] Scrub: Blanca Bautista Indications: Jovani Kong is an 64 y.o. male who is having surgery for Chronic pain syndrome [G89.4].He has a history of chronic pain involving the neck, shoulder, and proximal left arm despite prior anterior cervical discectomy and fusion. He had undergone a trial of percutaneous cervical spinal cord stimulation with significant reduction in chronic pain symptoms. Based on these findings, he was referred for a cervical laminectomy and placement of a permanent spinal cord stimulation system. After discussion of the surgery itself, its risk, its benefits, and the alternatives, he elected to proceed and informed consent was obtained. Procedure Details: The patient was brought to the operating theater. General endotracheal anesthesia was induced without difficulty. Adequate vascular access was ensured. No Mcdaniel catheter was placed. The patient's head was fixated in a [place] mophead sewer. The patient was rolled into the prone position on a [facility] table. The neck was flexed to provide optimal access to the upper cervical region. The [place] mophead sewer was attached to the operating table with Collins adapter. The arms were positionedto the sides and care was taken to ensure that all pressure points were padded adequately. The proposed sites of surgery in the posterior cervical superior midline and the right flank were identifiedand marked. The sites were prepped and draped in the normal sterile fashion. A time-out was performed confirming the correct patient, procedure, and site. It was ensured that preoperative antibioticshad been delivered. The skin at the proposed sites of incision was infiltrated with local anesthetic. Attention was first turned to the cervical site. The skin was opened in the superior cervical midline with #10 blade and dissection was carried down sharply to the superficial tissue. Monopolar cautery was used to extend the plane of dissection in the cervical midline. The inferior margin of the C2 spinous process was palpated. Monopolar cautery was used to open the cervical fascia in the midline and dissection was carried down until the C3 and 4 spinous processes were encountered. Careful subperiosteal dissection was carried down the lateral phases of the C4 spinous process. A radiopaque marker was placed upon the C4 spinous process and intraoperative radiographs demonstrated the correct level of exposure. A small self-retaining retractor was added to aide in exposure. The wound was irrigated thoroughly and hemostasis was ensured. A small forward angle curette was used to define the inferior margin of the C4 lamina. A rongeur was used to remove the entirety of the C4 spinous process. A #3 Kerrison rongeur was introduced beneath the inferior margin of the C4 lamina and multiple bites were taken until a complete laminectomy had been performed at this level. Beneath the dorsal aspect of the dura could be clearly visualized. Aflexible dissector was placed in the epidural space and directed cranially. It could be advanced easily to approximately the C2 level. The wound was again irrigated thoroughly and hemostasis was ensured. A new check24 [employer] paddle type array was opened onto the field. It was introduced into the laminectomy defect and directed cranially in the epidural space. Intraoperative radiographs were obtained to assess the position of the electrode. After multiple repositionings, the electrode was left in place spanning the base of the dens to the superior margin of C4 with slight deviation to the right of midline. A penetrating towel clip was used to create a passage in the superior aspect of the C5 spinous process. Anchors were placed on the stimulation array leads and these anchors were then secured C5 spinous process with a single 0 silk suture. Final intraoperative radiographs demonstrated stable position of the electrode. The self-retaining retractor was removed. Vancomycin powder was instilled within the wound to help prevent infection. The deep cervical fascia was closed with multiple interrupted 0 Vicryl sutures Attention was then turned to the right flank IPG site. Here, a #10 blade was used to create a transverse incision. Dissection was carried down sharply with a #10 blade through the superficial tissue.Monopolar cautery was used to extend the plane of dissection to a depth of approximately 1.5 cm below the skin surface. The plane of dissection was then turned caudally until a pocket adequate in size to house a check24 spinal cord stimulation IPG had been created. A tunneling trocar was introduced into the flank wound and tunneled to the cervical wound subcutaneously. A small passing incision was needed just superior to the flank pocket due to the length of the passage. The distal portions of the stimulation leads were introduced into the tunneling trocar and withdrawn to the flankpocket. A IPG was opened onto the field. The distal portions of the stimulation leads were insertedinto the IPG and the connections were secured with the enclosed screwdriver. Intraoperative interrog ation revealed appropriate lead impedance and internal function of the system. The excess portions of the leads were wound behind the generator and it was inserted in the flank pocket. It was anchored in place with 2-0 silk suture to the surrounding tissue. Both the flank and cervical wounds were irrigated thoroughly. Vancomycin powder was instilled within both wounds to help prevent infection. Both wounds were then closed in multiple layers with resorbable suture. The skin at both sites was closed with Dermabond. At the conclusion of skin closure, all counts were correct x2. The drapes were removed. The [place] mophead sewer was detached from the operative table. The patient was rolled back into the supine position on a waiting cart. The mophead sewer was removed, and hemostasis was ensured at the pin sites. Anesthesia was reversed and the patientwas extubated without difficulty. The patient was transported to the postanesthesia care unit in stable condition. Findings: Intraoperative x-ray imaging demonstrated the electrode spanning the base of the dens to the superior margin of C4 with slight deviation of the left midline. After connection of the implanted pulse generator, intraoperative interrogation revealed appropriate lead impedance and internal function of the system. No CSF egress was noted. Complications: None; patient tolerated the procedure well. Disposition: PACU - hemodynamically stable. Condition: stable Isaias Ramirez * Brief Op Note - Isaias Ramirez MD - 06/03/2025 8:31 AM EST Date: 06/03/2025 Location: [facility] OR Name: Jovani Kong, : 1960, Diagnosis Pre-op Diagnosis * Chronic pain syndrome [G89.4] Post-op Diagnosis * Chronic pain syndrome [G89.4] Procedures C4 LAMINOTOMY FOR INSERTION, SPINAL CORD STIMULATOR 95905 - [place] RAYMOND IMPLTJ NSTIM ELTRDS PLATE/PADDLE EDRL C4 LAMINOTOMY FOR INSERTION, SPINAL CORD STIMULATOR 81189 - [place] INSJ/RPLCMT SPINAL NPG/RCVR POCKET CRTJ&CONNJ Surgeons Primary: Isaias Ramirez MD Procedure Summary Anesthesia: General ASA: III Estimated Blood Loss: Minimal Drains: * None in log * Implants Type Name Action Serial No. Device ARTISAN 70CM 2X8 FRONT END SOFTWARE ENGINEER KIT Implanted [id number] Device WAVEWRITER ALPHA 16 IMPULSE GENERATOR KIT Implanted [id number] Staff: Communication Manager: Omar Cruz RN Cloth Mender: Velasquez Carcamo Scrub Person: Mackenzie Contreras CST [employer] Coordinator: Shubham Souza CSA [employer] Communication Manager: Hilton You RN [employer] Scrub: Blanca Bautista Indications: Jovani Kong is an 64 y.o. male who is having surgery for Chronic pain syndrome [G89.4]. Findings: Electrode spanning superior C2 body to inferior C3 with slight deviation to left of midline. Appropriate lead impedances and internal function. Complications: None; patient tolerated the procedure well. Disposition: PACU - hemodynamically stable. Condition: stable Specimens Collected: No specimens collected during this procedure. Attending Attestation: I performed the procedure. Isaias Ramirez documented in this encounter Plan of Treatment DateTypeDepartmentCare Team (Latest Contact Info)Zkjmlrimvpa23/30/2025 1:00 PM ESTOffice Visit [facility] [address] [place] [address] Opal Holley, LUCIO [address] [place] [address] documented as of this encounter Procedures Procedure NamePriorityDate/TimeAssociated DiagnosisCommentsPR INSJ/RPLCMT SPINAL NPG/RCVR POCKET CRTJ&CONNJ108/04/2024 8:31 AM EST Chronic pain syndrome Special Needs check24 rep notified [place] RAYMOND IMPLTJ NSTIM ELTRDS PLATE/PADDLE EDRL108/04/2024 8:31 AM EST Chronic pain syndrome Special Needs check24 rep notified POCT GLUCOSE METER UNSOLICITED BDOOPLBHianavh30/17/2025 7:43 AM EST documented in this encounter Results * (ABNORMAL) POCT glucose meter (06/03/2025 7:43 AM EST)ComponentValueRef Range Test MethodAnalysis TimePerformed AtPathologist SignatureGlucose POC68(L)70 - 105 mg/dL06/03/2025 8:22 AM [facility] ([place])Comment:epawlow Specimen (Source)Anatomical Location / LateralityCollection Method / Volume Collection TimeReceived TimeBloodCapillary blood specimen / Qegptwo7506/03/2025 7:43 AM EST06/03/2025 8:22 AM EST Narrative [facility] ([place]) - 06/03/2025 8:22 AM EST Waived Testing in the ED is performed under the ED CLIA certificate #[id number]. Authorizing ProviderResult TypeResult StatusAlastair James SMITH BLOOD ORDERABLES Final ResultPerforming OrganizationAddressCity/State/ZIP CodePhone Number [facility] ([place]) [address], [place] [id number] documented in this encounter Visit Diagnoses Diagnosis Chronic pain syndrome- Primary Post-op pain Other acute postoperative pain documented in this encounter Admitting Diagnoses Diagnosis Chronic pain syndrome documented in this encounter Administered Medications Medication OrderMAR ActionAction DateDoseRateSite HYDROmorphone (Dilaudid) injection 0.4 mg 0.4 mg, intravenous, Every 15 min PRN, severe pain (8-10 pain score), First choice for severe pain (8-10), Starting on Sun06/03/25 at 1112, For 4 doses, Recovery (only) Given06/03/2025 11:43 AM EST0.4 iwHkasy3606/03/2025 11:17 AM EST0.4 mg lactated Ringer's infusion 30 mL/hr, intravenous, Continuous, Starting on Sun06/03/25 at 0745, For 99 days, Preprocedure, Indication: pre op Given06/03/2025 10:45 AM EST1,200 mLNew Bag06/03/2025 7:25 AM EST1 mL/hr1 mL/hr prochlorperazine (Compazine) injection 5 mg 5 mg, intravenous, Once as needed, nausea, vomiting, Starting on Sun06/03/25 at 1112, For 1 dose, Recovery & On Unit, For IVP: give each 5mg or less over 1 minute. sodium chloride flush 10 mL 10 mL, intravenous, Every 8 hours PRN, line care, Starting on Sun06/03/25 at 0734, For 99 days, Preprocedure vancomycin IVPB 1,000 mg 1,000 mg, intravenous, at 200 mL/hr, Administer over 60 Minutes, Once, On Sun06/03/25 at 0745, For1 dose, Preprocedure, Administer within 120 minutes of procedure. premix bag, Suspected Indication (Select all that apply): Surgical Prophylaxis New Bag06/03/2025 7:49 AM EST1,000 mg200 mL/hrdocumented in this encounter Active and Recently Administered Medications Times are shown in EST.Medication Order/ gentamicin (Garamycin) 80 mg in sodium chloride irrigation solution 0.9 % 1,000 mL irrigation (COMPLETED) 80 mg, irrigation, Once, On Sun06/03/25 at 0830, For 1 dose, Intraprocedure, Indication: Surgical Prophylaxis * 0830 (Due) * 0930 (Given - Provider: Isaias Ramirez MD - Comment: GIVEN TO SURGICAL FIELD) vancomycin IVPB 1,000 mg (COMPLETED) 1,000 mg, intravenous, at 200 mL/hr, Administer over 60 Minutes, Once, On Sun06/03/25 at 0745, For1 dose, Preprocedure, Administer within 120 minutes of procedure. premix bag, Suspected Indication (Select all that apply): Surgical Prophylaxis * 0749 (New Bag - Provider: Diana Navarro RN) * 0849 (Due: Stopped - Provider: Diana Navarro RN) Medication Order/ lactated Ringer's infusion 30 mL/hr, intravenous, Continuous, Starting on Sun06/03/25 at 0745, For 99 days, Preprocedure, Indication: pre op * 0725 (New Bag - Provider: NAVEEN Faulkner) * 1045 (Given - Provider: NAVEEN Faulkner) * 1516 (Due: Order Ending - Provider: Automatic Discharge Provider - Comment: [Order ends at this time. Document the following action when infusion is complete: Stopped]) Medication Order/ BUPivacaine-EPINEPHrine (PF) (Marcaine w/EPI) 0.25 %-1:200,000 injection (CANCELED) As needed, Starting on Sun06/03/25 at 0905, Intraprocedure * 0905 (Given - Provider: Isaias Ramirez MD - Comment: INJECTED TO SURGICAL SITE.) gelatin absorbable (Gelfoam) 100 sponge (CANCELED) As needed, Starting on Sun06/03/25 at 0955, Intraprocedure * 0955 (Given - Provider: Isaias Ramirez MD - Comment: PLACED IN SURGICAL SITES) HYDROmorphone (Dilaudid) injection 0.4 mg (CANCELED) 0.4 mg, intravenous, Every 15 min PRN, severe pain (8-10 pain score), First choice for severe pain (8-10), Starting on Sun06/03/25 at 1112, For 4 doses, Recovery (only) * 1117 (Given - Provider: René Dunn) * 1143 (Given - Provider: René Dunn) prochlorperazine (Compazine) injection 5 mg 5 mg, intravenous, Once as needed, nausea, vomiting, Starting on Sun06/03/25 at 1112, For 1 dose, Recovery & On Unit, For IVP: give each 5mg or less over 1 minute. sodium chloride flush 10 mL(Linked Group 1) 10 mL, intravenous, Every 8 hours PRN, line care, Starting on Sun06/03/25 at 0734, For 99 days, Preprocedure thrombin syringe (CANCELED) As needed, Starting on Sun06/03/25 at 0955, Intraprocedure * 0955 (Given - Provider: Isaias Ramirez MD - Comment: IN SURGICAL SITES.) vancomycin (Vancocin) vial for injection (CANCELED) As needed, Starting on Sun06/03/25 at 0955, Intraprocedure * 0955 (Given - Provider: Isaias Ramirez MD - Comment: PUT IN SURGICAL SITE BEFORE CLOSING) Order Group 1: Insert peripheral IV (CANCELED) Once, On Sun06/03/25 at 0735, For 1 occurrence, Preprocedure And Saline lock IV (CANCELED) Once, On Sun06/03/25 at 0735, For 1 occurrence, Preprocedure And sodium chloride flush 10 mLJump to med 10 mL, intravenous, Every 8 hours PRN, line care, Starting on Sun06/03/25 at 0734, For 99 days, Preprocedure documented in this encounter Care Teams Team MemberRelationshipSpecialtyStart DateEnd Date Jax Hastings DO [facility] [place] [address] PCP - GeneralFamily Medicine02/13/25 Lilliam Cason MD [address] [place] [id number] Referring PhysicianCardiovascular Rngecxl88/7/25documented as of this encounter
--- OUTSIDE RECORDS SUMMARY | 2025-06-03 08:17 | XMS_ITS | Encounter Summary ---
Author Organization [facility] [place] [address] Care Team Providers Care Waiter/Waitress First Class Name Role Phone Darling Jax JOSÉ Primary Care Provider [phone] Lilliam Cason MD Unavailable [phone] Reason for Visit * Auth/Cert (Routine)SpecialtyDiagnoses / ProceduresReferred By ContactReferred To Contact Diagnoses Chronic pain syndrome Chronic pain syndrome [G89.4] Procedures IL RAYMOND IMPLTJ NSTIM ELTRDS PLATE/PADDLE EDRL IL INSJ/RPLCMT SPINAL NPG/RCVR POCKET CRTJ&CONNJ C4 LAMINOTOMY FOR INSERTION, SPINAL CORD STIMULATOR C4 LAMINOTOMY FOR INSERTION, SPINAL CORD STIMULATOR Isaias Ramirez MD [address] [place] [address] Phone: tel: fax: [facility] Main Operating Room [address] [place] [address] Phone: tel: fax: Referral IDStatusReasonStart DateExpiration DateVisits RequestedVisits [id number] Encounter Details DateTypeDepartmentCare Team (Latest Contact Info)Bjpwwirtbsh24/17/2025 8:17 AM EST - 06/03/2025 11:59 PM ESTHospital Encounter [facility] X-Ray Imaging [address] [place] [address] Pain Discharge Disposition: Home or Self Care () Social History Tobacco UseTypesPacks/DayYears UsedDateSmoking Tobacco: Every DayCigarettes0.5 52.7Started: 1972Smokeless Tobacco: NeverAlcohol UseStandard Drinks/Week CommentsNever0 (1 standard drink = 0.6 oz pure alcohol)PHQ-2AnswerDate Recorded Patient Health Questionnaire-2 [id number], Afraid, Rape, and Kick questionnaireAnswerDate RecordedWithin the last year, have you been afraid of your partner or ex-partner?Patient unable to jawlaf2205/25/2025Emotionally AbusedNot on file05/25/2025Physically AbusedNot on file05/25/2025Sexually Abused Not on file05/25/2025Sex and Gender InformationValueDate RecordedSex Assigned at DoemmNvjm12/29/2025 1:20 PM EDTLegal KopMvim8102/13/2025 9:31 AM EDTGender VpqquuhjNcoc70/29/2025 1:20 PM EDTSexual OrientationChoose not to disclose 02/13/2025 1:20 PM EDTdocumented as of this encounter Medications at Time [...] tablet by mouth in the morning. HYDROcodone-acetaminophen ([place]) 7.5-325 mg tablet 03/04/2025 hydrOXYzine HCL (Atarax) [...] twice a day if needed for MUSCLE ZNILTFAMBZ73/14/2025 oxyCODONE (Roxicodone) 10 mg immediate release tablet Indications:Post-op painTake 1 tablet (10 mg) by mouth every 6 (six) hours if needed for severe pain (8-10 pain score) for up to 10 days. 40 tablet documented as of this encounter Plan of Treatment DateTypeDepartmentCare Team (Latest Contact Info)Rthapffljry69/30/2025 1:00 PM ESTOffice Visit [facility] [address] [place] [address] Opal Holley, LUCIO [address] [place] [address] documented as of this encounter Procedures Procedure NamePriorityDate/TimeAssociated DiagnosisCommentsFL LESS THAN 1 HOUR RWWIMEVBSEQSGFSmkdopx34/17/2025 10:19 AM EST Pain documented in this encounter Results * FL LESS THAN 1 HOUR INTRAOPERATIVE (06/03/2025 10:19 AM EST)Anatomical Region LateralityModalityX-Ray AngiographySpecimen (Source)Anatomical Location / LateralityCollection Method / VolumeCollection TimeReceived Time06/03/2025 10:29 AM EST Impressions 06/03/2025 10:30 AM EST 1. Intraprocedural fluoroscopy for the purposes of treatment planning and localization; findings as above. 2. Please refer to final procedural note/dictation for full details. Electronically signed: Nate Jo MD. Narrative 06/03/2025 10:30 AM EST STUDY: [place] IN OR INDICATION: Fluoroscopic guidance for C4 laminotomy. COMPARISON: None FINDINGS: Fluoro Time: 18.8 seconds Cumulative reference Air Kerma Dose: 2.7432 mGy Fluoroscopic support for procedure in progress. Images show ongoing cervical intervention Procedure Note Nate Jo MD - 06/03/2025 STUDY: [place] IN OR INDICATION: Fluoroscopic guidance for C4 laminotomy. COMPARISON: None FINDINGS: Fluoro Time: 18.8 seconds Cumulative reference Air Kerma Dose: 2.7432 mGy Fluoroscopic support for procedure in progress. Images show ongoingcervical intervention IMPRESSION: 1. Intraprocedural fluoroscopy for the purposes of treatment planningand localization; findings as above. 2. Please refer to final procedural note/dictation for full details. Electronically signed: Nate Jo MD. Authorizing ProviderResult TypeResult StatusAlastair James NORRISIMG FLUOROSCOPY PROCEDURESFinal Result documented in this encounter Visit Diagnoses Diagnosis Pain Generalized pain documented in this encounter Care Teams Team MemberRelationshipSpecialtyStart DateEnd Date Jax Hastings DO [address] [place] [address] PCP - GeneralFamily Medicine02/13/25 Lilliam Cason MD [address] [place] [address] Referring PhysicianCardiovascular Wcjjatl31/7/25documented as of this encounter
--- OUTSIDE RECORDS SUMMARY | 2025-06-03 08:25 | XMS_ITS | Encounter Summary ---
Author Organization [facility] Address [address] [place] [address] Care Team Providers Care Marketing Technology Coordinator Name Role Phone Darling Jax JOSÉ Primary Care Provider [phone] Lilliam Cason MD Unavailable [phone] Reason for Visit * Auth/Cert (Routine)SpecialtyDiagnoses / ProceduresReferred By ContactReferred To Contact Diagnoses Chronic pain syndrome Chronic pain syndrome [G89.4] Procedures DE RAYMOND IMPLTJ NSTIM ELTRDS PLATE/PADDLE EDRL DE INSJ/RPLCMT SPINAL NPG/RCVR POCKET CRTJ&CONNJ C4 LAMINOTOMY FOR INSERTION, SPINAL CORD STIMULATOR C4 LAMINOTOMY FOR INSERTION, SPINAL CORD STIMULATOR Isaias Ramirez MD [address] [place] [address] Phone: tel: fax: [facility] Main Operating Room [address] [place] [address] Phone: tel: fax: Referral IDStatusReasonStart DateExpiration DateVisits RequestedVisits [id number] Encounter Details DateTypeDepartmentCare Team (Latest Contact Info)Slqgpgfdmqj24/17/2025 8:25 AM ESTAnesthesia Event [facility] Main Operating Room [address] [place] [address] Katja Byers MD [address] [facility] [address] [place] [address] Laxmi Adler MD [address] [place] [address] Anesthesia Record Procedure NameResponsible AnesthesiologistAnesthesia Start TimeAnesthesia Stop TimeC4 LAMINOTOMY FOR INSERTION, SPINAL CORD STIMULATOR (Back)Katja Byers MD 06/03/25 98019208/04/24 6038NonzTnfsCgfycEnwoyji83/17/71106822Hc [id number] Start Zqmk8788Lg InductionThe patient was reevaluated immediately before moderate or deep sedation use and before anesthesia induction.0842An Intubation 0843Anesthesia Ubdre4946Loge OutTime out completed (confirmed patient ID, surgeon, procedure, and operative site).1050An Rzqpywjgqw4825sw stop [id number] Handoff to ReceivingI completed my handoff to the receiving clinician during which we: 1. Identified the patient 2. Identified the responsible provider 3. Reviewed the pertinent medical history 4. Discussed the surgicalcourse 5. Reviewed intra-op anesthesia management and issues during anesthesia 6. Set expectations for post-procedure period 7. Allowed opportunity for questions and acknowledgement of understanding.1058An Stop* NameTotalmidazolam (Versed) 1mg/mL injection2 mgfentaNYL (SUBLIMAZE) klxxtygnu607 mcglidocaine (Xylocaine) 20 mg/ml injection 2 %40 mgpropofol 10 mg/mL100 nrqwqhiruisi96 mgdexAMETHasone (Decadron) 4 MG/ML injection8 mgondansetron 2 mg/mL4 mgphenylephrine (Brian- Synephrine) 10 mg/ml injection2,000 mcglactated Ringer's infusion1,203.55 mL lidocaine (LTA Kit) for intubation1 kitketamine injection 10 mg/mL (50 mg/5 mL)50 mgglycopyrrolate (Robinul) injection0.2 mgvasopressin 20 mg/mL6 Units calcium chloride 10%1,000 mgalbumin human bottle 5%500 mLdexmedeTOMIDine (Precedex) 20 mcg/5 mL NS IV SYRINGE (OR Use Only)20 mcg * Agents Name O2 N2O Air Sevoflurane Inspired Sevoflurane N2O Inspired N2O Inspired O2 Setting * Blood No blood administrations on file. TypeDetailsPlacementRemovalOpen Wound (Any Pressure Injuries included)06/03/25; 09; Yes; Surgical; Open Surg; Back; Lower, Right; SURGICAL SITE FOR BATTERY QZUSQTZ00/17/25905 by aDvid Pro Wound (Any Pressure Injuries included)06/03/25; 09; Yes; Surgical; Neck; Posterior; IMPLANT LOCATION 06/03/25905 by Ruchi Propheral IVPlacement Date: 06/03/25; Placement Time: 743; Catheter Size: 20 G; Orientation: Posterior, Right; Location: Hand; Site Prep: Chlorhexidine ; Local Anesth: None; Technique: Anatomical landmarks; Insertion Attempts: 1; Difficult Venous Access? No; Patient Tolerance: Tolerated well; Removal Date: 06/03/25; Removal Time: 171506/03/25 0744 by Diana Navarro RN06/03/25 171 by Automatic Discharge ProviderETTPlacement Date: 06/03/25; Placement Time: 841 (created via procedure documentation); Mask Ventilation: 2; Technique: Video laryngoscopy; Type: ETT - single; Single Lumen Tube Size: 7.5 mm; Cuffed: Yes; Blade Size: 3; Grade View: Grade I; Insertion Attempts: 1; Placement Verification: Auscultation, Capnometry; Removal Date: 06/03/25; Removal Time: 0842 by NAVEEN Faulkner06/03/25 105 by NAVEEN Faulknerdocumented in this encounter Social History Tobacco UseTypesPacks/DayYears UsedDateSmoking Tobacco: Every DayCigarettes0.5 52.7Started: 1972Smokeless Tobacco: NeverAlcohol UseStandard Drinks/Week CommentsNever0 (1 standard drink = 0.6 oz pure alcohol)PHQ-2AnswerDate Recorded Patient Health Questionnaire-2 Mbjbb727Humiliation, Afraid, Rape, and Kick questionnaireAnswerDate RecordedWithin the last year, have you been afraid of your partner or ex-partner?Patient unable to lmrurr9405/25/2025Emotionally AbusedNot on file05/25/2025Physically AbusedNot on file05/25/2025Sexually Abused Not on file05/25/2025Sex and Gender InformationValueDate RecordedSex Assigned at JmidxKegl85/29/2025 1:20 PM EDTLegal MofRgej5802/13/2025 9:31 AM EDTGender AnidbhtfXxeb00/29/2025 1:20 PM EDTSexual OrientationChoose not to disclose 02/13/2025 1:20 PM EDTdocumented as of this encounter Procedure Notes * NAVEEN Faulkner - 06/03/2025 8:42 AM ESTAssociated Order(s): Airway Airway Date/Time: 06/03/2025 8:42 AM Reason: elective Airway not difficult General Information and Staff Patient location during procedure: OR Anesthesiologist: Katja Byers MD Resident/TONGUE PRESSER/CAA: NAVEEN Faulkner Performed: resident/TONGUE PRESSER/CAA Patient Condition Indications for airway management: anesthesia Patient position: sniffing Sedation level: deep Final Airway Details Preoxygenated: yes Final airway type: endotracheal airway Successful airway: ETT Cuffed: yes Successful intubation technique: video laryngoscopy Adjuncts used in placement: intubating stylet Blade: Guillermo Blade size: #3 ETT size (mm): 7.5 Cormack-Lehane Classification: grade I - full view of glottis Placement verified by: chest auscultation and capnometry Cuff volume (mL): 9 Measured from: lips ETT to lips (cm): 23 Number of attempts at approach: 1 Number of other approaches attempted: 0 documented in this encounter Plan of Treatment DateTypeDepartmentCare Team (Latest Contact Info)Rjmouxyptdl59/30/2025 1:00 PM ESTOffice Visit [facility] Surgery Clinic [address] [place] [address] Opal Holley CNP [address] [facility] [place] [address] documented as of this encounter Procedures Procedure NamePriorityDate/TimeAssociated DiagnosisCommentsPR AN ELECTIVE ENDOTRACHEAL VUDAYFPmtnlqk63/17/2025 8:42 AM EST documented in this encounter Results * DE AN ELECTIVE ENDOTRACHEAL AIRWAY (06/03/2025 8:42 AM EST) Milena Garcia CAA - 06/03/2025 8:42 AM EST NAVEEN Faulkner 06/03/2025 8:42 AM Airway Date/Time: 06/03/2025 8:42 AM Reason: elective Airway not difficult General Information and Staff Patient location during procedure: OR Anesthesiologist: Katja Byers MD Resident/TONGUE PRESSER/CAA: NAVEEN Faulkner Performed: resident/TONGUE PRESSER/CAA Patient Condition Indications for airway management: anesthesia Patient position: sniffing Sedation level: deep Final Airway Details Preoxygenated: yes Final airway type: endotracheal airway Successful airway: ETT Cuffed: yes Successful intubation technique: video laryngoscopy Adjuncts used in placement: intubating stylet Blade: Guillermo Blade size: #3 ETT size (mm): 7.5 Cormack-Lehane Classification: grade I - full view of glottis Placement verified by: chest auscultation and capnometry Cuff volume (mL): 9 Measured from: lips ETT to lips (cm): 23 Number of attempts at approach: 1 Number of other approaches attempted: 0 Authorizing ProviderResult TypeResult StatusSasylvester Byers MDANESTHESIA ORDERABLES Final Result documented in this encounter Visit Diagnoses * Anesthesia Postprocedure Evaluation - Katja Byers MD - 06/03/2025 5:33 PM EST Patient: Jovani Kong Procedure Summary Date: 06/03/25 Room / Location: [facility] OPERATING ROOM 03 / [facility] Operating Room; [facility] X-Ray Imaging Anesthesia Start: 824 Anesthesia Stop: 1057 Procedures: C4 LAMINOTOMY FOR INSERTION, SPINAL CORD STIMULATOR (Back) [place] IN OR Diagnosis: Chronic pain syndrome Pain (Chronic pain syndrome [G89.4]) Scheduled Providers: Isaias Ramirez MD Responsible Provider: Katja Byers MD Anesthesia Type: general ASA Status: 3 Anesthesia Type: general Vitals Value Taken Time BP 117/65 06/03/25 11:41 Temp 36.2 06/03/25 17:33 Pulse 89 06/03/25 11:44 Resp 13 06/03/25 11:44 SpO2 96 % 06/03/25 11:44 Vitals shown include unfiled device data. Anesthesia Post Evaluation Patient location during evaluation: PACU Patient participation: complete - patient participated Level of consciousness: awake Pain score: 1 Pain management: adequate Airway patency: patent Cardiovascular status: acceptable Respiratory status: acceptable Patient is hemodynamically stable and is able to be discharged from PACU per anesthesia protocol. There were no known notable events for this encounter. * Anesthesia Preprocedure Evaluation - Katja Byers MD - 06/03/2025 8:25 AM EST Patient: Jovani Kong Procedure Information Date/Time: 06/03/25829 Procedure: C4 LAMINOTOMY FOR INSERTION, SPINAL CORD STIMULATOR - C-ARM, [employer], Prone onStandard OR Bed with chest rolls, ambriz pins, REP NOTIFIED 05/20 JK Location: [facility] OPERATING ROOM 03 / [facility] Operating Room Surgeons: Isaias Ramirez MD Relevant Problems Cardio (+) AV bloc first degree (+) CAD (coronary artery disease) (+) Cardiac arrhythmia (+) Essential hypertension (+) Heart block (+) PAD (peripheral artery disease) Neuro/Psych (+) Cervico-occipital neuralgia Other (+) Secondary and unspecified malignant neoplasm of lymph node, unspecified (CMS/HCC) Clinical information reviewed: Tobacco Allergies Meds Med Hx Surg Hx Fam Hx Soc Hx Physical Exam Airway Mallampati: II TM distance: >3 FB Neck ROM: full Cardiovascular - normal exam Dental (+) edentulous Pulmonary - normal exam Neurological Abdominal - normal exam Anesthesia Plan ASA 3 general (Per patient was told by anesthesiologist at [facility] that he had scar tissue and was difficult to intubated; however an airway record from 2023 documented him as an easy mask and a grade I view with a Guillermo. ) The patient is a current smoker. Patient was previously instructed to abstain from smoking on day of procedure. Patient did not smoke on day of procedure. Education provided regarding risk of obstructive sleep apnea. intravenous induction Postoperative pain plan includes opioids. Trial extubation is planned. Anesthetic plan and risks discussed with patient. Plan discussed with CAA. Additional Equipment Requests documented in this encounter Administered Medications Medication OrderMAR ActionAction DateDoseRateSite albumin human 5 % bottle intravenous, As needed, Starting on Sun06/03/25 at 1010, Anesthesia Intraprocedure Given06/03/2025 10:10 AM MDA932 mL calcium chloride 100 mg/mL (10 %) intravenous syringe intravenous, As needed, Starting on Sun06/03/25 at 1004, Anesthesia Intraprocedure Given06/03/2025 10:09 AM HCB759 pjZhtzs1106/03/2025 10:04 AM XSG390 mg dexAMETHasone (Decadron) injection intravenous, As needed, Starting on Sun06/03/25 at 0919, Anesthesia Intraprocedure Given06/03/2025 9:19 AM EST8 mg dexmedeTOMIDine in NS (Precedex) 4 mcg/mL IV syringe intravenous, As needed, Starting on Sun06/03/25 at 1040, Anesthesia Intraprocedure Given06/03/2025 10:40 AM EST20 mcg fentaNYL (Sublimaze) injection intravenous, As needed, Starting on Sun06/03/25 at 0837, Anesthesia Intraprocedure Given06/03/2025 8:37 AM PMT073 mcg glycopyrrolate (Robinul) injection intravenous, As needed, Starting on Sun06/03/25 at 0918, Anesthesia Intraprocedure Given06/03/2025 9:18 AM EST0.2 mg ketamine (Ketalar) injection intravenous, As needed, Starting on Sun06/03/25 at 0915, Anesthesia Intraprocedure Given06/03/2025 10:15 AM EST25 ucCalug5306/03/2025 9:15 AM EST25 mg lactated Ringer's infusion 30 mL/hr, intravenous, Continuous, Starting on Sun06/03/25 at 0745, For 99 days, Preprocedure, Indication: pre op Given06/03/2025 10:45 AM EST1,200 mLNew Bag06/03/2025 7:25 AM EST1 mL/hr1 mL/hr lidocaine HCl (LTA Kit) 4 % vial intratracheal, As needed, Starting on Sun06/03/25 at 0842, Anesthesia Intraprocedure Given06/03/2025 8:42 AM EST1 kit lidocaine HCl (Xylocaine) 20 mg/mL (2 %) injection intravenous, As needed, Starting on Sun06/03/25 at 0838, Anesthesia Intraprocedure Given06/03/2025 8:38 AM EST40 mg midazolam (Versed) injection intravenous, As needed, Starting on Sun06/03/25 at 0825, Anesthesia Intraprocedure Given06/03/2025 8:25 AM EST2 mg ondansetron (Zofran) injection intravenous, As needed, Starting on Sun06/03/25 at 1040, Anesthesia Intraprocedure Given06/03/2025 10:40 AM EST4 mg phenylephrine (Brian-Synephrine) injection intravenous, As needed, Starting on Sun06/03/25 at 0841, Anesthesia Intraprocedure Given06/03/2025 9:33 AM YVY252 sphOmony97/17/2025 9:19 AM ODU283 mcgGiven 06/03/2025 9:12 AM CHS429 mcg propofol (Diprivan) 10 mg/mL infusion intravenous, As needed, Starting on Sun06/03/25 at 0838, Anesthesia Intraprocedure Given06/03/2025 8:38 AM YEI152 mg rocuronium (ZeMuron) injection intravenous, As needed, Starting on Sun06/03/25 at 0840, Anesthesia Intraprocedure Given06/03/2025 9:00 AM EST10 ybJzkhr7206/03/2025 8:40 AM EST40 mg vasopressin (Vasostrict) injection intravenous, As needed, Starting on Sun06/03/25 at 0933, Anesthesia Intraprocedure Given06/03/2025 9:58 AM EST2 QjkhpHslbf97/17/2025 9:33 AM EST2 UnitsGiven 06/03/2025 9:23 AM EST2 Unitsdocumented in this encounter Care Teams Team MemberRelationshipSpecialtyStart DateEnd Date Jax Hastings DO [address] [place] [id number] PCP - GeneralFamily Medicine02/13/25 Lilliam Cason MD [address] [place] [id number] Referring PhysicianCardiovascular Ycotlej78/7/25documented as of this encounter
--- OUTSIDE RECORDS SUMMARY | 2025-06-03 08:30 | XMS_ITS | Encounter Summary ---
Author Organization [facility] Address [address] [place] [address] Care Team Providers Care Planning Coordinator Name Role Phone Darling Jax JOSÉ Primary Care Provider [phone] Lilliam Cason MD Unavailable [phone] Reason for Visit * Auth/Cert (Routine)SpecialtyDiagnoses / ProceduresReferred By ContactReferred To Contact Diagnoses Chronic pain syndrome Chronic pain syndrome [G89.4] Procedures [place] RAYMOND IMPLTJ NSTIM ELTRDS PLATE/PADDLE EDRL [place] INSJ/RPLCMT SPINAL NPG/RCVR POCKET CRTJ&CONNJ C4 LAMINOTOMY FOR INSERTION, SPINAL CORD STIMULATOR C4 LAMINOTOMY FOR INSERTION, SPINAL CORD STIMULATOR Isaias Ramirez MD [address] [place] [address] Phone: tel: fax: [facility] Main Operating Room [address] [place] [address] Phone: tel: fax: Referral IDStatusReasonStart DateExpiration DateVisits RequestedVisits [id number] Encounter Details DateTypeDepartmentCare Team (Latest Contact Info)Nxmpiyidtmv06/17/2025 8:30 AM EST - 06/03/2025 11:00 AM ESTSurgery [facility] Main Operating Room [address] [place] [address] Isaias Ramirez MD [address] [place] [address] C4 LAMINOTOMY FOR INSERTION, SPINAL CORD STIMULATOR [31365 (CPT??) +1 more] Social History Tobacco UseTypesPacks/DayYears UsedDateSmoking Tobacco: Every DayCigarettes0.5 52.7Started: 1972Smokeless Tobacco: NeverAlcohol UseStandard Drinks/Week CommentsNever0 (1 standard drink = 0.6 oz pure alcohol)PHQ-2AnswerDate Recorded Patient Health Questionnaire-2 Vheyb808Humiliation, Afraid, Rape, and Kick questionnaireAnswerDate RecordedWithin the last year, have you been afraid of your partner or ex-partner?Patient unable to evnkyd4105/25/2025Emotionally AbusedNot on file05/25/2025Physically AbusedNot on file05/25/2025Sexually Abused Not on file05/25/2025Sex and Gender InformationValueDate RecordedSex Assigned at OxcpuNgpf40/29/2025 1:20 PM EDTLegal OxcAzwu0502/13/2025 9:31 AM EDTGender TlghwjiaIgxq70/29/2025 1:20 PM EDTSexual OrientationChoose not to disclose 02/13/2025 1:20 PM EDTdocumented as of this encounter Last Filed Vital Signs Vital SignReadingTime TakenCommentsBlood Rlhdnwuy987/7006/03/2025 7:33 AM EST Xzfla60949/17/2025 7:33 AM QBCTdjhauqyjxh74.4 ??C (97.5 ??F)06/03/2025 7:33 AM ESTRespiratory Ulep200008/04/2024 7:33 AM ESTOxygen Qarbjomisu48%06/03/2025 7:33 AM ESTInhaled Oxygen Concentration--Upybul92.1 kg (152 lb 5.4 oz)06/03/2025 7:33 AM HXHYuvunn427.7 cm (5' 8 )06/03/2025 7:33 AM ESTBody Mass Index23.16108/04/2024 7:33 AM ESTdocumented in this encounter Functional [...] Take 1 tablet by mouth in the morning./ HYDROcodone-acetaminophen (Talmage) 7.5-325 mg tablet 03/04/2025 hydrOXYzine HCL (Atarax) [...] twice a day if needed for MUSCLE TFOHNLYJCM28/14/2025 oxyCODONE (Roxicodone) 10 mg immediate release tablet [...] planned cervical laminotomy and placement of a [employer] spinal cord stimulation system. He denies substantial changes in his symptoms since he was last seen. He notes that paincontinues to be quite problematic. In review of his history, he was first seen on 03/24/2025 in kind referral from [facility] for the management to discuss placement of a cervical spinal cord stimulation system. He has a historyof neck and left upper extremity pain which has been present for at least 10 years. It is graduallyprogressed and had been associated with pain and numbness with tingling in the 4th and 5th digits of left hand. He had been evaluated by neurosurgery at [facility] and had beenfound to have cervical spondylosis. [...] spinal cord stimulation by Dr. Ramsey using [employer] hardware. This resulted in a very substantial [...] and Plavix after a prior PCTA. 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 technician had furnished clearance for him to be [...] tablet tablet 1 tablet, Daily RT HYDROcodone-acetaminophen (Talmage) 7.5-325 mg tablet hydrOXYzine HCL (Atarax) 25 [...] Incomplete Atrial Rate 05/25/2025 79 BPM Incomplete [place] Interval 05/25/2025 296 ms Incomplete QRS DURATION 05/25/2025 64 ms Incomplete QT Interval 05/25/2025 382 ms Incomplete QTC CALCULATION(BAZETT) 05/25/2025 438 ms Incomplete P Barrington 05/25/2025 72 degrees Incomplete R-Barrington 05/25/2025 3 degrees Incomplete T Wave Barrington 05/25/2025 57 degrees Incomplete Imaging: XR cervical [...] XR cervical spine 2 or 3 views Narrative [facility] Main [place] [address] [place] [address] XRay Report Signed Patient: Jovani Kong MR#: [id number] : 1960 Acct:[id number] Age/Sex: 63 / M ADM Date: 10/10/24 Loc: XD Room: Type: [facility] CLI Attending Dr: René Narayanan PA-C Copies [...] Eubanks M.D. 10/10/2024 3:02 PM Dictation Location: [place] [address] Transcribed By: [facility] 10/10/24 1502 Dictated By: Dorothy Eubanks [...] a cervical spinal cord stimulation system utilizing [employer] hardware. We discussed the surgery itself, its risk, its benefits, and the alternatives. We explicitly discussed the risk of neurologic injury. The patient wishes to move forward with surgery. Plan: We will plan for a C4 laminotomy for placement of the cervical spinal cord stimulation system utilizing [employer] hardware in the near future. A [...] CORD STIMULATOR Operative Note Date: 06/03/2025 Location: [facility] OR Name: Jovani Kong, : 1960, Diagnosis Pre-op Diagnosis * Chronic pain syndrome [G89.4] Post-op Diagnosis * Chronic pain syndrome [G89.4] Procedures C4 LAMINOTOMY FOR INSERTION, SPINAL CORD STIMULATOR 72070 - [place] RAYMOND IMPLTJ NSTIM ELTRDS PLATE/PADDLE EDRL C4 LAMINOTOMY FOR INSERTION, SPINAL CORD STIMULATOR 01874 - [place] INSJ/RPLCMT SPINAL NPG/RCVR POCKET CRTJ&CONNJ Surgeons Primary: Isaias Ramirez MD Procedure Summary Anesthesia: General ASA: III Estimated Blood Loss: Minimal Drains: * None in log * Implants Type Name Action Serial No. Device ARTISAN 70CM 2X8 SPECIALIST WOUND CARE KIT Implanted [id number] Device WAVEWRITER ALPHA 16 IMPULSE GENERATOR KIT Implanted [id number] Staff: Plant Operator Control Room Operator: Omar Cruz RN District Manager Postal Service: Velasquez Carcamo Scrub Person: Mackenzie Contreras CST Guide Foreign Tour: Shubham Souza CSA [employer] Plant Operator Control Room Operator: Hilton You RN [place] Scrub: Blanca Bautista [...] The patient's head was fixated in a [place] head of commission department. The patient was rolled into the prone position [facility]. The neck was flexed to provide optimal access to the upper cervical region. The [employer] head of commission department was attached to the operating table with [place] adapter. The arms were positionedto the sides [...] thoroughly and hemostasis was ensured. A new [employer] Artisan paddle type array was opened onto [...] pocket adequate in size to house a [employer] spinal cord stimulation IPG had been created. [...] correct x2. The drapes were removed. The [place] head of commission department was detached from the operative table. The patient was rolled back into the supine position on a waiting cart. The head of commission department was removed, and hemostasis was ensured at [...] 06/03/2025 8:31 AM EST Date: 06/03/2025 Location: [facility] OR Name: Jovani Kong, : 1960, Diagnosis Pre-op Diagnosis * Chronic pain syndrome [G89.4] Post-op Diagnosis * Chronic pain syndrome [G89.4] Procedures C4 LAMINOTOMY FOR INSERTION, SPINAL CORD STIMULATOR 54779 - [place] RAY[place] IMPLTJ NSTIM ELTRDS PLATE/PADDLE EDRL C4 LAMINOTOMY FOR INSERTION, SPINAL CORD STIMULATOR 99915 - [place] INSJ/RPLCMT SPINAL NPG/RCVR POCKET CRTJ&CONNJ Surgeons Primary: Isaias Ramirez MD Procedure Summary Anesthesia: General ASA: III Estimated Blood Loss: Minimal Drains: * None in log * Implants Type Name Action Serial No. Device ARTISAN 70CM 2X8 SPECIALIST WOUND CARE KIT Implanted [id number] Device WAVEWRITER ALPHA 16 IMPULSE GENERATOR KIT Implanted [id number] Staff: Plant Operator Control Room Operator: Omar Cruz RN District Manager Postal Service: Velasquez Carcamo Scrub Person: Mackenzie Contreras CST Guide Foreign Tour: Shubham Souza CSA [place] Plant Operator Control Room Operator: Hilton You RN [place] Scrub: Blanca Bautista [...] Plan of Treatment DateTypeDepartmentCare Team (Latest Contact Info)Gaburzhjqvb67/30/2025 1:00 PM ESTOffice Visit [facility] [address] [place] [address] Opal Holley, LUCIO [address] [place] [address] documented as of this encounter Procedures Procedure NamePriorityDate/TimeAssociated DiagnosisCommentsPR INSJ/RPLCMT SPINAL NPG/RCVR POCKET CRTJ&CONNJ108/04/2024 8:31 AM EST Chronic pain syndrome Special Needs [employer] rep notified [place] R[place] IMPLTJ NSTIM ELTRDS PLATE/PADDLE EDRL108/04/2024 8:31 AM EST Chronic pain syndrome Special Needs [employer] rep notified POCT GLUCOSE METER UNSOLICITED XBDYVWROjcybwv93/17/2025 7:43 AM EST documented in this encounter Results * (ABNORMAL) POCT glucose meter (06/03/2025 7:43 AM EST)ComponentValueRef Range Test MethodAnalysis TimePerformed AtPathologist SignatureGlucose POC68(L)70 - 105 mg/dL06/03/2025 8:22 AM ESTUN[facility] ([facility])Comment:epawlow Specimen (Source)Anatomical Location / LateralityCollection Method / Volume Collection TimeReceived TimeBloodCapillary blood specimen / Jtuhohq1206/03/2025 7:43 AM EST06/03/2025 8:22 AM EST Narrative [facility] ([facility]) - 06/03/2025 8:22 AM EST Waived Testing in the ED is performed under the ED CLIA certificate #[id number]. Authorizing ProviderResult TypeResult StatusAlastair James SMITH BLOOD ORDERABLES Final ResultPerforming OrganizationAddressCity/State/ZIP CodePhone Number [facility] ([facility]) [address] [place] [phone] documented in this encounter Visit Diagnoses Diagnosis Chronic pain syndrome- Primary Post-op pain Other acute postoperative pain Chronic pain syndrome documented in this encounter Admitting Diagnoses Diagnosis Chronic pain syndrome documented in this encounter Administered Medications Medication OrderMAR ActionAction DateDoseRateSite BUPivacaine-EPINEPHrine (PF) (Marcaine w/EPI) 0.25 %-1:200,000 injection As needed, Starting on Sun06/03/25 at 0905, Intraprocedure Given06/03/2025 9:05 AM EST10 mLOperative Site gelatin absorbable (Gelfoam) 100 sponge As needed, Starting on Sun06/03/25 at 0955, Intraprocedure Given06/03/2025 9:55 AM EST1 eachUpper Back gentamicin (Garamycin) 80 mg in sodium chloride irrigation solution 0.9 % 1,000 mL irrigation 80 mg, irrigation, Once, On Sun06/03/25 at 0830, For 1 dose, Intraprocedure, Indication: Surgical Prophylaxis Given06/03/2025 9:30 AM EST80 mgOperative Site HYDROmorphone (Dilaudid) injection 0.4 mg 0.4 mg, intravenous, Every 15 min PRN, severe pain (8-10 pain score), First choice for severe pain (8-10), Starting on Sun06/03/25 at 1112, For 4 doses, Recovery (only) Given06/03/2025 11:43 AM EST0.4 vtSspdo1206/03/2025 11:17 AM EST0.4 mg lactated Ringer's infusion [...] 0734, For 99 days, Preprocedure thrombin syringe As needed, Starting on Sun06/03/25 at 0955, Intraprocedure Given06/03/2025 9:55 AM EST5,000 UnitsBack vancomycin (Vancocin) vial for injection As needed, Starting on Sun06/03/25 at 0955, Intraprocedure Given06/03/2025 9:55 AM EST1 gOperative Site vancomycin IVPB 1,000 mg 1,000 mg, intravenous, [...] action when infusion is complete: Stopped]) Medication Order// BUPivacaine-EPINEPHrine (PF) (Marcaine w/EPI) 0.25 %-1:200,000 injection [...] DateEnd Date Jax Hastings DO [address] [place] [address] PCP - GeneralFamily Medicine02/13/25 Lilliam Cason MD [address] [place] [address] Referring PhysicianCardiovascular Qfsmjme96/7/25documented as of this encounter
--- OUTSIDE RECORDS SUMMARY | 2025-06-15 12:31 | XMS_ITS | Clinical Summary ---
Author Organization [facility] Address [address] [place] [address] Care Team Providers Care Mussel Opener Name Role Phone Jax Hastings DO Primary Care Provider [phone] Lilliam Cason MD Unavailable [phone] Allergies Active AllergyReactionsCriticalityNoted OsrqQuxvakcnGfhayowloiPqcxjNpf09/10/2019 Other Reaction(s): hives, Unknown Medications MedicationSigDispense QuantityRefillsLast FilledStart DateEnd DateStatus albuterol 90 mcg/actuation inhaler Inhale 2 puffs every 4 (four) hours if needed.07/02/2023ctive Praluent Pen 75 mg/mL pen injector Every 2 weeks, last dose 05/25/25085Active aspirin 81 mg EC tablet Take 81 mg by mouth in the morning.04/14/2024ctive atorvastatin (Lipitor) 10 mg tablet Take 1 tablet by mouth in the morning.Active citalopram (CeleXA) 20 mg tablet Take 20 mg by mouth in the morning.Active clopidogrel (Plavix) 75 mg tablet Take 75 mg by mouth in the morning.06/27/2023ctive ezetimibe (Zetia) 10 mg tablet Take 10 mg by mouth in the morning.06/08/2023ctive HYDROcodone-acetaminophen ([place]) 7.5-325 mg tablet 5Active hydrOXYzine HCL (Atarax) 25 mg tablet 05/26/2022ctive montelukast (Singulair) 10 mg tablet Take 10 mg by mouth.09/04/2022ctive pantoprazole (ProtoNix) 40 mg EC tablet Take 40 mg by mouth two times daily.5Active pravastatin (Pravachol) 40 mg tablet Take 40 mg by mouth.07/06/2023ctive pregabalin (Lyrica) 50 mg capsule Take 50 mg by mouth at bedtime.5Active tiZANidine (Zanaflex) 4 mg capsule tizanidine 4 mg capsule take 1 capsule by mouth twice a day if needed for MUSCLE IPARJVGQKA53/14/2025tive folic acid-vit B6-vit B12 ([place]) 2.5-25-1 mg tablet tablet Take 1 tablet by mouth in the morning./6Active oxyCODONE (Roxicodone) 10 mg immediate release tablet Indications:Post-op painTake 1 tablet (10 mg) by mouth every 6 (six) hours if needed for severe pain (8-10 pain score) for up to 10 days. 40 tablet Expired Active Problems ProblemNoted DateDiagnosed DateChronic pain dyhrznty77/13/2025Nerve root and plexus ytoaqghb35/05/2024AD (coronary artery disease)02/26/2024Senile joimrghwysml55/18/2024Generalized anxiety apvwdsvh50/26/2024cute effusion of left ear10/16/2023cute left-sided thoracic back pain10/16/2023cute sinusitis 10/16/2023nxiety and qbvideaeek66/30/2024V bloc first ltcplo5710/16/2023rain mass10/16/2023urning ndcdnuhwz39/30/2024ardiac axjqltfzwz28/30/2024izziness 10/16/2023yshidrotic xuelnd0410/16/2023Essential ckyjmicyxitg29/30/2024Heart block10/16/2023History of oral hulfni9010/16/20230144Rmasysbsnnzwut82/30/2024 Osteoarthritis of hand10/16/2023AD (peripheral artery disease)10/16/2023 Paresthesia of left lower zhevvsrvt80/30/2024roductive cough10/16/2023entral pontine yowmdveajmcc76/13/1308Ehxcjgtw79/13/2024igarette nicotine dependence with nicotine-induced zmkyohrh59/27/2024cute pain of left emkecjrj10/05/2024 Cervical avlfgphw04/16/2024Radicular pain in left arm04/04/2023ervical lhmpfpbcnyfio69/14/2023ervical paraspinal muscle spasm12/29/2022ervical stenosis of spinal canal12/29/2022ain in left arm12/29/2022reglaucoma, unspecified, right eye12/29/2022Skin sensation qvaqgcajept75/14/2023Visual uabcawbilzx60/14/1966Xjdauoyp75/14/2023ge-related nuclear cataract of right eye 12/10/2022egeneration of cervical intervertebral disc12/10/2022Impairment of ypldzbd2212/10/20221925Yvhewoad44/25/2023Lumbar dqkmlciuoszon80/25/2023Malignant (primary) neoplasm, xdrukfgcibz37/25/4682Ijdefxv59/25/2023Other abnormal findings on diagnostic imaging of central nervous kmvifz0512/10/2022seudophakia 12/10/20222963Bsfjedsidj60/25/2023Secondary and unspecified malignant neoplasm of lymph node, limlkvsqbxn07/25/2023Vertigo of central cmmnzf5112/10/2022Neck pain 11/23/2022ervico-occipital /08/2023rachial porieyrxcf56/08/2023 Glioma of brain10/13/2021Lung uazmstd6510/13/2021rimary squamous cell carcinoma of head and neck10/13/2021 Encounters DateTypeDepartmentCare KhssDcbyemhqgaz50/17/2025 8:30 AM EST - 06/03/2025 11:00 AM ESTSurgery [facility] Main Operating Room [address] [place] [phone] Isaias Ramirez MD C4 LAMINOTOMY FOR INSERTION, SPINAL CORD STIMULATOR [07142 (CPT??) +1 more] 06/03/2025 8:25 AM ESTAnesthesia Event [facility] Main Operating Room [address] [place] [phone] Katja Byers MD Willis, Davontae, MD 06/03/2025 8:17 AM EST - 06/03/2025 11:59 PM ESTHospital Encounter [facility] [place] [address] Pain Discharge Disposition: Home or Self Care ()06/03/2025 7:10 AM EST - 06/03/2025 1:16 PM ESTHospital Encounter [facility] [place] [address] Isaias Ramirez MD Post-op pain (Primary Dx) Discharge Disposition: Home or Self Care (01)06/03/20253992Hgyept50/08/2025 10:10 AM ESTLab [facility] Outpatient [place] [address] Chronic pain thvadwjo03/08/2025 10:05 AM EST - 05/25/2025 11:59 PM ESTHospital Encounter [facility] V[facility] Heart Station [address] [place] [address] Chronic pain syndrome Discharge Disposition: Home or Self Care ()05/25/2025 9:26 AM EST - 05/25/2025 10:04 AM ESTHospital Encounter [facility] [place] [address] Chronic pain syndrome Discharge Disposition: Home or Self Care ()05/25/2025 8:30 AM ESTConsult [facility] [place] [address] Isaias Ramirez MD Chronic pain syndrome (Primary Dx)05/25/2025Orders Only [facility] Pre-Anesthesia Clinic [address] [place] [address] [place] [address] Mitch Medina RN 05/21/2025Orders Only [facility] Pre-Anesthesia Clinic [address] [place] [address] [place] [address] Mitch Medina RN 04/30/2025Orders Only [facility] [place] [address] Lidya Cordon MA Chronic pain syndrome (Primary Dx)04/06/2025Telephone [facility] Surgery Clinic [address] [place] [address] Elisabet Pimentel MA 03/24/2025 10:30 AM EDTConsult [facility] [address] [place] [phone] Isaias Ramirez MD Chronic pain syndrome (Primary Dx)from Last 3 Months Family History Medical HistoryRelationNameCommentsCancerFatherRobert HallHeart diseaseMother Paty HallStrokePaternal GrandfatherRobert Mediapolis JrRelationNameStatusComments FatherRobert HallAliveMotherBetty HallAlivePaternal GrandfatherRobert Kong Jr Alive Social History Tobacco UseTypesPacks/DayYears UsedDateSmoking Tobacco: Every DayCigarettes0.5 52.7Started: 1972Smokeless Tobacco: Never Tobacco Cessation:Ready to Q uit: Not Asked; Counseling Given: Not Answered Alcohol UseStandard Drinks/WeekCommentsNever0 (1 standard drink = 0.6 oz pure alcohol)PHQ-2AnswerDate RecordedPatient Health Questionnaire-2 Tecdd442 Humiliation, Afraid, Rape, and Kick questionnaireAnswerDate RecordedWithin the last year, have you been afraid of your partner or ex-partner?Patient unable to gtfnlj2405/25/2025Emotionally AbusedNot on file05/25/2025Physically AbusedNot on file05/25/2025Sexually AbusedNot on file05/25/2025Sex and Gender Information ValueDate RecordedSex Assigned at SigxkWwox94/29/2025 1:20 PM EDTLegal SexMale 02/13/2025 9:31 AM EDTGender FgqflhevOvuv18/29/2025 1:20 PM EDTSexual OrientationChoose not to xfutpout96/29/2025 1:20 PM EDT Last Filed Vital Signs Vital SignReadingTime TakenCommentsBlood Aydgpmas406/6006/03/2025 12:25 PM EST Axpsy696306/03/2025 12:25 PM MMLChnoiltryfv18.6 ??C (97.9 ??F)06/03/2025 12:25 PM ESTRespiratory Wlyf86108/04/2024 12:25 PM ESTOxygen Klesdnqbol24%06/03/2025 12:25 PM ESTInhaled Oxygen Concentration--Vjcoog35.1 kg (152 lb 5.4 oz)06/03/2025 7:33 AM JDQNyxvof338.7 cm (5' 8 )06/03/2025 7:33 AM ESTBody Mass Index23.16108/04/2024 7:33 AM EST Plan of Treatment DateTypeDepartmentCare Team (Latest Contact Info)Ipsxufziwev67/30/2025 1:00 PM ESTOffice Visit [facility] [address] [place] [address] Opal [place], LUCIO [address] [place] [address] Health MaintenanceDue DateLast DoneCommentsCT Svftsybzngeu24/09/1963Colonoscopy 1962Colorectal Cancer Kfvnugdoh67/09/1963FIT-DNA1962FIT1962 FOBT1962Medicare Annual Wellness (AWV)1962 5687Mxexmcaifocaz38/09/1963 Pneumococcal Vaccine: Pediatrics (0 to 5 Years) and At-Risk Patients (6 to 64 Years) (1 of 2 - PCV)1981Zoster Vaccines (1 of 2)2012dult Tetanus COVID-19 Vaccine (3 - season)508/11/2020, 12/30/2020Influenza Vaccine (#1)2025Depression Zegxjtzfe75/08/2026 05/25/2025HIB VaccinesAged OutNo longer eligible based on patient's [...] on patient's age to complete this topic Medical Devices ImplantedTypeAreaManufacturerDevice IdentifierShelf Expiration DateModel / Serial / LotArtisan 70cm 2x8 Vegetable Loader Machine Operator Kit Implanted:Qty: 1 on 06/03/2025 by [facility]DeviceN/A: [employer]12/09/2026MODEL SC-[id number] / [id number] / Wavewriter Alpha 16 Impulse Generator Kit Implanted:Qty: 1 on 06/03/2025 by [facility] HospitalDeviceN/A: [employer]04/24/2027SC-[id number] / [id number] / Procedures Procedure NamePriorityDate/TimeAssociated DiagnosisCommentsFL LESS THAN 1 HOUR HWPGBQYHVKJSJUEveybuz79/17/2025 10:19 AM EST Pain PA AN ELECTIVE ENDOTRACHEAL IMINZIUerkxve84/17/2025 8:42 AM EST PA INSJ/RPLCMT SPINAL NPG/RCVR POCKET CRTJ&CONNJ108/04/2024 8:31 AM EST Chronic pain syndrome Special Needs [employer] rep notified PA RAYMOND IMPLTJ NSTIM ELTRDS PLATE/PADDLE EDRL108/04/2024 8:31 AM EST Chronic pain syndrome Special Needs [employer] rep notified POCT GLUCOSE METER UNSOLICITED TSTWJWWWpaltku63/17/2025 7:43 AM EST ECG 12-VIBWQqpukwy25/08/2025 10:32 AM EST Chronic pain syndrome XR CHEST 2 XEDQYRkonxyt30/08/2025 10:06 AM EST Chronic pain syndrome CBC WITH AUTO MQTNLAYBJZXDSmrdgdh92/08/2025 9:52 AM EST Chronic pain syndrome TYPE AND FQARUBOwspjph66/08/2025 9:52 AM EST Chronic pain syndrome PROTIME-YRLTjltwmf86/08/2025 9:52 AM EST Chronic pain syndrome WPEVNnbuoux67/08/2025 9:52 AM EST Chronic pain syndrome BASIC METABOLIC BULHTGimxakj59/08/2025 9:52 AM EST Chronic pain syndrome CBC AND VQDOKGQOBUYIHuzwjrj71/08/2025 9:52 AM EST Chronic pain syndrome MRSA/MSSA DNA HLATWEpkfmzx53/08/2025 9:52 AM EST Chronic pain syndrome from Last 3 Months Results * [place] LESS THAN 1 HOUR [...] signed: Nate Jo MD. Authorizing ProviderResult TypeResult StatusIsaias FELIZG FLUOROSCOPY PROCEDURESFinal Result * PA AN ELECTIVE ENDOTRACHEAL AIRWAY (06/03/2025 8:42 AM EST) Milena Garcia CAA - 06/03/2025 8:42 AM EST NAVEEN Faulkner 06/03/2025 8:42 AM Airway Date/Time: 06/03/2025 8:42 AM Reason: elective Airway not difficult General Information and Staff Patient location during procedure: OR Anesthesiologist: Katja Byers MD Resident/SUPERVISOR MECHANIC BOILERMAKING/CAA: NAVEEN Faulkner Performed: resident/SUPERVISOR MECHANIC BOILERMAKING/NAVEEN Patient Condition Indications for airway management: anesthesia Patient position: sniffing Sedation level: deep Final Airway Details Preoxygenated: yes Final airway type: endotracheal airway Successful airway: ETT Cuffed: yes Successful intubation technique: video laryngoscopy Adjuncts used in placement: intubating stylet Blade: [employer] Blade size: #3 ETT size (mm): 7.5 Cormack-Lehane Classification: grade I - full view of glottis Placement verified by: chest auscultation and capnometry Cuff volume (mL): 9 Measured from: lips ETT to lips (cm): 23 Number of attempts at approach: 1 Number of other approaches attempted: 0 Authorizing ProviderResult TypeResult Jose Ramon Byers MDANESTHESIA ORDERABLES Final Result * (ABNORMAL) POCT glucose meter (06/03/2025 7:43 AM EST)ComponentValueRef Range Test MethodAnalysis TimePerformed AtPathologist SignatureGlucose POC68(L)70 - 105 mg/dL06/03/2025 8:[address] [facility] ([facility])Comment:epawlow Specimen (Source)Anatomical Location / LateralityCollection Method / Volume Collection TimeReceived TimeBloodCapillary blood specimen / Rkfhfqm0906/03/2025 7:43 AM EST06/03/2025 8:22 AM EST Narrative [facility] ([facility]) - 06/03/2025 8:22 AM EST Waived Testing in the ED is performed under the ED CLIA certificate #[id number]. Authorizing ProviderResult TypeResult Ralph Ramirez MDLAB BLOOD ORDERABLES Final ResultPerforming OrganizationAddressCity/State/ZIP CodePhone Number [facility] ([place]) [address] [place] [address] * EKG 12 lead (05/25/2025 10:32 AM EST)ComponentValueRef RangeTest Method Analysis TimePerformed AtPathologist SignatureVentricular Kulj69MYJTD MUSE Atrial Wjug40SYSUB MUSEPR Tbvbfaal234dzCW MUSEQRS JUCBBMXS29cdRF MUSEQT Rlewcvvx559ztAR MUSEQTC CALCULATION(BAZETT)438msGE MUSEP Bghr38myeoveuDB MUSE R-Wdqz4zipzivuAX MUSET Wave Wsrj44zkrykkxOK MUSESpecimen (Source)Anatomical Location / LateralityCollection Method / VolumeCollection TimeReceived Time 05/25/2025 10:18 AM EST05/25/2025 12:36 PM EST Impressions [facility] - 05/25/2025 12:37 PM EST Sinus rhythm with 1st degree A-V block with Premature atrial complexes Low voltage QRS Borderline ECG No previous ECGs available Confirmed by Lux LARIOS SAMER J. (57) on 05/25/2025 12:36:55 PM Narrative Procedure Note Tien Larios MD - 05/25/2025 IMPRESSION: Sinus rhythm with 1st degree A-V block with Premature atrial complexes Low voltage QRS Borderline ECG No previous ECGs available Confirmed by Lux LARIOS SAMER J. (57) on 05/25/2025 12:36:55 PM Authorizing ProviderResult TypeResult StatusAlastair James NORRISEC ORDERABLESFinal ResultPerforming OrganizationAddressCity/State/ZIP CodePhone Number [facility] * XR chest 2 views (05/25/2025 10:06 AM EST)Anatomical RegionLateralityModality ChestComputed RadiographySpecimen (Source)Anatomical Location / Laterality Collection Method / VolumeCollection TimeReceived Time05/25/2025 1:46 PM EST Impressions 05/25/2025 2:33 PM EST Unremarkable chest x-ray. Approved by:Gloria Serrato05/25/2025 1:48 PM. Bryn Wright MD,have reviewed the image(s) and agree with the findings in this report. Electronically signed: Bryn Lozada MD. Narrative 05/25/2025 2:33 PM EST XR CHEST 2 VIEWS 05/25/2025 9:57 AM CLINICAL INDICATIONS: Preoperative evaluation, chronic pain syndrome COMPARISON: None FINDINGS: Upright PA and lateral views of the chest were obtained. The cardiomediastinal silhouette is within normal limits. No pneumothorax. No pleural effusion. No focal consolidation. Cervical spine hardware in place. Procedure Note Bryn Lozada MD - 05/25/2025 XR CHEST 2 VIEWS 05/25/2025 9:57 AM CLINICAL INDICATIONS: Preoperative evaluation, chronic pain syndrome COMPARISON: None FINDINGS: Upright PA and lateral views of the chest were obtained. The cardiomediastinal silhouette is within normal limits. No pneumothorax.No pleural effusion. No focal consolidation. Cervical spine hardware inplace. IMPRESSION: Unremarkable chest x-ray. Approved by:Gloria Serrato05/25/2025 1:48 PM. I, Bryn Lozada MD,have reviewed the image(s) and agree with the findingsin this report. Electronically signed: Bryn Lozada MD. Authorizing ProviderResult TypeResult StatusAlastair James NORRISIMG XR PROCEDURES Final Result * CBC auto differential (05/25/2025 9:52 AM EST)ComponentValueRef RangeTest MethodAnalysis TimePerformed AtPathologist SignatureAuto WBC7.434.00 - 10.60 10*3/uL05/25/2025 10:[address] [facility] ([facility])RBC4.244.20 - 5.70 10*6/uL05/25/2025 10:[address] [facility] ([facility])Xvshvrgady80.613.0 - 17.0 g/dL05/25/2025 10:[address] [facility] ([facility])Iqbkcvwkwb83.139.0 - 50.0 %05/25/2025 10:[address] [facility] ([facility])MCV94.682.0 - 98.0 fL 05/25/2025 10:[address] [facility] ([facility])MCH32.127.0 - 33.0 pg 05/25/2025 10:[address] [facility] ([facility])MCHC33.932.0 - 35.0 g/dL 05/25/2025 10:[address] [facility] ([facility])RDW14.311.5 - 15.0 % 05/25/2025 10:[address] [facility] ([facility])Neutrophils %62.040.0 - 72.0 %05/25/2025 10:[address] [facility] ([facility])Lymphocytes %30.320.0 - 45.0 %05/25/2025 10:[address] [facility] ([facility])Monocytes %5.85.0 - 12.0 % 05/25/2025 10:[address] [facility] ([facility])Eosinophils %0.70.0 - 6.0 % 05/25/2025 10:[address] [facility] ([facility])Basophils %0.90.0 - 1.0 % 05/25/2025 10:[address] [facility] ([facility])Neutrophils Absolute4.611.60 - 7.60 10*3/uL05/25/2025 10:[address] [facility] ([facility])Lymphocytes Absolute2.251.20 - 4.00 10*3/uL05/25/2025 10:[address] [facility] ([facility])Monocytes Absolute0.430.10 - 1.00 10*3/uL05/25/2025 10:[address] [facility] ([facility])Eosinophils Absolute0.050.00 - 0.50 10*3/uL05/25/2025 10:[address] [facility] ([facility])Basophils Absolute0.070.00 - 0.20 10*3/uL05/25/2025 10:[address] [facility] ([facility])Ngzaumnmd497788 - 400 10*3/uL05/25/2025 10:[address] [facility] ([facility])nRBC %0.00 %05/25/2025 10:[address] [facility] ([facility])Immature Granulocytes %0.30.0 - 1.0 % 05/25/2025 10:[address] [facility] ([facility])Immature Granulocytes Absolute0.020.00 - 0.20 10*3/uL05/25/2025 10:[address] [facility] ([facility])Specimen (Source)Anatomical Location / LateralityCollection Method / VolumeCollection TimeReceived TimeBloodVenous blood specimen / Unknown Venipuncture / Dnuqlqg3705/25/2025 9:52 AM EST05/25/2025 10:36 AM EST Narrative Authorizing ProviderResult TypeResult StatusIsaias SMITH BLOOD ORDERABLES Final ResultPerforming OrganizationAddressCity/State/ZIP CodePhone Number [facility]) [address] [place] [address] * MRSA nasal swab (05/25/2025 9:52 AM EST)ComponentValueRef RangeTest Method Analysis TimePerformed AtPathologist SignatureMSSA DNANegativeNegative 05/25/2025 3:[address] [facility])MRSA DNANegativeNegative 05/25/2025 3:13 PM [facility])Specimen (Source)Anatomical Location / LateralityCollection Method / VolumeCollection TimeReceived Time SwabNasal structure / UnknownNon-blood Collection / Wmejeri6205/25/2025 9:52 AM EST05/25/2025 11:03 AM EST Narrative [facility]) - 05/25/2025 3:13 PM EST Testing methodology is an automated qualitative in vitro diagnostic test for the direct detection and differentiation of Staphylococcus aureus (SA) DNA and methicillin- resistant Staphylococcus aureus (MRSA) DNA from nasal swabs in patients at risk for nasal colonization. The test utilizes real-time polymerase chain reaction (PCR) for the amplification of MRSA/SA DNA and fluorogenic target-specific hybridization probes for the detection of the amplified DNA. A negative result does not preclude nasal colonization. Authorizing ProviderResult TypeResult StatusIsaias SMITH MICROBIOLOGY - GENERAL ORDERABLESFinal ResultPerforming OrganizationAddressCity/State/ZIP Code Phone Number [facility]) [address] [place] [address] * APTT (05/25/2025 9:52 AM EST)ComponentValueRef RangeTest MethodAnalysis Time Performed AtPathologist SxcxrweoxbTMU51.125.0 - 35.0 Vfrotcu64/01/2025 11:[address] [facility] ([facility])Comment:Clinical significance of the APTT is questionable in the presence of heparin.Specimen (Source)Anatomical Location / LateralityCollection Method / VolumeCollection TimeReceived TimeBloodVenous blood specimen / UnknownVenipuncture / Rwgtfbc9805/25/2025 9:52 AM EST05/25/2025 10:34 AM EST Narrative Authorizing ProviderResult TypeResult StatusAlastair James MDLAB BLOOD ORDERABLES Final ResultPerforming OrganizationAddressCity/State/ZIP CodePhone Number [facility] ([place]) [address] [place] [address] * Protime-INR (05/25/2025 9:52 AM EST)ComponentValueRef RangeTest MethodAnalysis TimePerformed AtPathologist YqjpzoqpyLpzgftp09.912.3 - 14.8 Akmizwg5705/25/2025 11:[address] [facility] ([place])INR1.070.90 - 1.10107/26/2024 11:[address] [facility] ([place])Comment: [facility] RECOMMENDED INR FOR WARFARIN THERAPY CONDITION ?INR PROPHYLAXIS OF VENOUS THROMBOSIS ? 2-3 (HIGH-RISK SURGERY) TREATMENT OF VENOUS THROMBOSIS ? 2-3 TREATMENT OF PULMONARY EMBOLISM ?2-3 PREVENTION OF SYSTEMIC EMBOLISM: ? 2-3 ?ACUTE MYOCARDIAL INFARCTION ?TISSUE HEART VALVES ?VALVULAR HEART DISEASE ?ATRIAL FIBRILLATION ?RECURRENT SYSTEMIC EMBOLISM MECHANICAL HEART VALVE ? 2.5-3.5 FROM: ORAL ANTICOAGULANTS. ??MECHANISM OF ACTION, CLINICAL EFFECTIVENESS, AND OPTIMAL THERAPEUTIC RANGE. ??CHEST 1995;108:231S-246S. Specimen (Source)Anatomical Location / LateralityCollection Method / Volume Collection TimeReceived TimeBloodVenous blood specimen / UnknownVenipuncture / Hjwvsdg7605/25/2025 9:52 AM EST05/25/2025 10:34 AM EST Narrative Authorizing ProviderResult TypeResult StatusIsaias SMITH BLOOD ORDERABLES Final ResultPerforming OrganizationAddressCity/State/ZIP CodePhone Number [facility] ([place]) [address] [place] [address] * Type and screen (05/25/2025 9:52 AM EST)ComponentValueRef RangeTest Method Analysis TimePerformed AtPathologist SignatureABO EquqjtzkD46/08/2025 1:15 PM [facility] BLOOD BANKRh XbyaEHZ2705/25/2025 1:15 PM [facility] BLOOD BANKAb ScrnNEG 05/25/2025 1:15 PM [facility] BLOOD BANKSpecimen (Source)Anatomical Location / LateralityCollection Method / VolumeCollection TimeReceived TimeBloodVenous blood specimen / UnknownVenipuncture / Rlgrkvx0405/25/2025 9:52 AM EST05/25/2025 11:03 AM EST Narrative Authorizing ProviderResult TypeResult StatusIsaias SMITH BLOOD BANK TEST ORDERABLESFinal ResultPerforming OrganizationAddressCity/State/ZIP CodePhone Number [facility] * Basic metabolic panel (05/25/2025 9:52 AM EST)ComponentValueRef RangeTest MethodAnalysis TimePerformed AtPathologist EmnzbrywyYsyfdd918859 - 145 mmol/L 05/25/2025 11:[address] [facility] ([employer])Potassium4.03.5 - 5.1 mmol/L 05/25/2025 11:[address] [facility] ([facility])Amulquvt05377 - 107 mmol/L 05/25/2025 11:[address] [facility] ([facility])JD87695 - 31 mmol/L107/26/2024 11:[address] [facility] ([facility])CZJ983 - 25 mg/dL05/25/2025 11:35 AM EST [facility] ([facility])Creatinine0.810.70 - 1.30 mg/dL05/25/2025 11:[address] [facility] ([facility])Oltuuvu8486 - 100 mg/dL05/25/2025 11:35 AM EST [facility] ([facility])Calcium9.18.6 - 10.3 mg/dL05/25/2025 11:35 AM EST [facility] ([facility])Anion Gap77 - 20 mmol/L107/26/2024 11:[address] [facility] ([facility])eGFR99.7>60.0 mL/min/1.73m* 11:[address] [facility] ([facility])Comment:[facility]???s estimated glomerular filtration rate (eGFR) will no longer include consideration of race in its calculation. The National Kidney Foundation???s eGFR Task Force developed new recommendations for the estimation of the glomerular filtration rate in the [place] They recommend immediate implementation of the new equation refit without the race variable in all laboratories because the calculation does not include race. In addition to not including race in the calculation and reporting, it included diversity in its development, and has acceptable performance characteristics and potential consequences that do not disproportionately affect any one group of ind ividuals.BUN/Creatinine Ratio13.6107/26/2024 11:[address] [facility] ([facility])Specimen (Source)Anatomical Location / LateralityCollection Method / VolumeCollection TimeReceived TimeBloodVenous blood specimen / Unknown Venipuncture / Wwcdqzl1505/25/2025 9:52 AM EST05/25/2025 10:36 AM EST Narrative Authorizing ProviderResult TypeResult StatusAlastair James SMITH BLOOD ORDERABLES Final ResultPerforming OrganizationAddressCity/State/ZIP CodePhone Number [facility] ([facility]) [address] [place] [address] from Last 3 Months Insurance Care Teams Team MemberRelationshipSpecialtyStart DateEnd Date Jax Hastings DO [facility] [place] [address] PCP - GeneralFamily Medicine02/13/25 Lilliam Cason MD [address] [place] [address] Referring PhysicianCardiovascular Jzxmona69/7/25
--- OUTSIDE RECORDS SUMMARY | 2025-06-15 12:31 | XMS_ITS | Clinical Summary ---
Author Organization [facility] Address [address] [place] [address] Phone Care Team Providers Care Hand Box Coverer Name Role Phone Jax Hastings Neisha JOSÉ Primary Care Provider [phone] Helder Saleem MD Unavailable [phone] René Narayanan PA-C Unavailable [phone] Allergies Active AllergyReactionsCriticalityNoted ZmsbRaaejftzPivzqaVddlq59/19/2024 Medications MedicationSigDispense QuantityRefillsLast FilledStart DateEnd DateStatus amLODIPine [...] ProblemNoted DateDiagnosed DateCAD (coronary artery disease)02/26/2024eripheral vascular lgsqzkw8702/26/2024ervical orzhkvvazkffu51/18/2024Senile osteoporosis 01/03/2024 Family History Medical HistoryRelationNameCommentsThroat cancerFatherbladder cancerFatherHeart diseaseMotherRelationNameStatusCommentsFatherMother Social History Tobacco UseTypesPacks/DayYears UsedDateSmoking Tobacco: Every DayCigarettes0.552 Started: 1973Passive Smoke Exposure: NeverSmokeless Tobacco: Never Tobacco Cessation:Ready [...] homeless or living in a prison (including now)?No04/09/2024Sex and Gender InformationValueDate RecordedSex Assigned at WzjzsZktk96/29/2024 6:37 PM EDTLegal YzqPsak40/26/2022 3:14 AM ESTGender EimxpypxFndk51/29/2024 6:37 PM EDTSexual OrientationStraight 09/14/2023 6:37 PM EDT Last Filed Vital Signs Vital SignReadingTime TakenCommentsBlood Ejawulol713/60010/13/2024 9:06 AM EDT Abbbe429810/13/2024 9:06 AM IKDZfjnhedbnnz90.7 ??C (98.1 ??F)04/10/2024 12:11 PM EDTRespiratory Kqzt8938 12:11 PM EDTOxygen Zqmpwqnuyc92%04/10/2024 9:20 AM EDTInhaled Oxygen Concentration--Hmkevk84.2 kg (168 lb)10/13/2024 9:06 AM EDT Ghnvpv834.7 cm (5' 8 )10/13/2024 9:06 AM EDTBody Mass Index25.54010/13/2024 9:06 AM EDT Plan of Treatment DateTypeDepartmentCare Team (Latest Contact Info)Iydazywqzoh08/10/2026 9:00 AM EDTOffice Visit [facility] [address] [facility] [address] [place] [address] Doretha Harris MD [address] [place] [address] Health MaintenanceDue DateLast DoneCommentsCT Glkuabyddrsi45/09/1963Colonoscopy 1962Colorectal Cancer Fjzgcmhut82/09/1963FIT-DNA (Cologuard)1962FIT 1962HIV Wgptizwxs79/09/1963Lipid Panel1962Medicare Annual Wellness Visit (AWV)1962 8214Zdruqfxksaats00/09/1963MMR Vaccines (1 of 1 - Standard series)11/25/1963Hepatitis C Hdmqlqwgf77/09/1981Pneumococcal Vaccine (1 of 2 - PCV)1981Lung Cancer Tsdxnixzy65/09/2013PSA Prostate Cancer Screening 2012RSV High Risk: (Elderly (60+) or Population) (1 - Risk 50-74 years 1-dose series)2012Zoster Vaccines (1 of 2)2012DTaP/Tdap/Td Vaccines (2 - Td or Tdap)COVID-19 Vaccine (1 - 2024- season)2025Influenza Vaccine (#1)2025Diabetes Ltgvlgcqc62/24/2025 04/10/2024, 02/11/2024, 02/01/2019, Additional history existsBone Density Scan Zbruvnfzamdw22/28/2024HIB VaccinesAged OutNo longer eligible based on patient's [...] Lordotic 6 X 11 X 14 - [id number] - [id number] Implanted:Qty: 1 on 04/09/2024 [facility]: [employer]03/14/[id number] / [id number] / Allograft, Triad Lordotic 6 X 11 X 14 - [id number] - [id number] Implanted:Qty: 1 on 04/09/2024 [facility]: [employer]04/29/[id number] / [id number] / Plate, Acp, 1.6v, 2 Level, 34mm - [id number] Implanted:Qty: 1 on 04/09/2024 [facility]: [employer] [id number] / / Screw, Acp, Self Drill, 3.5 X 17mm, Variable - [id number] Implanted:Qty: 2 on 04/09/2024 [facility]: [employer] [id number] / / 3.5 X 19mm Screw Implanted:Qty: 4 on 04/09/2024 [facility] [employer] [id number] / / Description:per bill only jdr 04/10 Procedures Procedure NamePriorityDate/TimeAssociated DiagnosisCommentsBASIC METABOLIC PANEL Ouxnnxo9204/10/2024 9:19 AM EDT DEXA BONE GEEFWFOTtkanxm93/28/2024 10:50 AM EDT Cervical radiculopathy from Last 3 Months or Most Recently Relevant to Health Maintenance Results * (ABNORMAL) Basic metabolic panel (04/10/2024 9:19 AM EDT)ComponentValueRef RangeTest MethodAnalysis TimePerformed AtPathologist QffedgijtQesrgbk099(H)74 - 99 mg/dL LAB CHEMISTRY METHOD 04/10/2024 10:[facility] GLLOyudkc426629 - 145 mmol/L LAB CHEMISTRY METHOD 04/10/2024 10:[facility] LABPotassium4.53.5 - 5.3 mmol/L LAB CHEMISTRY METHOD 04/10/2024 10:32 AM [facility] UCHThriahew56516 - 107 mmol/L LAB CHEMISTRY METHOD 04/10/2024 10:32 AM [facility] IQMHnbumsgnxzu2758 - 32 mmol/L LAB CHEMISTRY METHOD 04/10/2024 10:32 AM [facility] LABAnion Slt7143 - 20 mmol/L LAB CHEMISTRY METHOD 04/10/2024 10:32 AM [facility] LABUrea Tkzjjjfj435 - 23 mg/dL LAB CHEMISTRY METHOD 04/10/2024 10:32 AM [facility] LABCreatinine0.860.50 - 1.30 mg/dL LAB CHEMISTRY METHOD 04/10/2024 10:32 AM [facility] LABeGFR>90>60 mL/min/1.73m*2 LAB CHEMISTRY METHOD 04/10/2024 10:32 AM [facility] LABComment: Calculations of estimated GFR are performed using the 2020 CKD-EPI Study Refit equation without therace variable for the IDMS-Traceable creatinine methods. https://jasn.asnjournals.org/content///ASN.1897779708 Calcium9.08.6 - 10.6 mg/dL LAB CHEMISTRY METHOD 04/10/2024 10:32 AM [facility] LABSpecimen (Source)Anatomical Location / LateralityCollection Method / VolumeCollection TimeReceived TimeBloodVenous blood specimen / UnknownVenipuncture / Ewazppf3604/10/2024 9:19 AM EDT1 10:03 AM EDT Narrative Authorizing ProviderResult TypeResult StatusXiaofeneeta SMITH BLOOD ORDERABLES Final ResultPerforming OrganizationAddressCity/State/ZIP CodePhone Number [address] [address] * XR DEXA bone density (02/13/2024 10:50 AM EDT)Specimen (Source)Anatomical Location / LateralityCollection Method / VolumeCollection TimeReceived Time 12/29/2024 8:11 AM EDT12/29/2024 8:11 AM EDT [facility] 12/29/2024 8:09 AM EDT DEXA: Moderately low bone mineral density ?? FRAX and Z-Score calculations include ethnicity in determining the score for these values, as determined by organizations such as the NIH, WHO and NOF. ?? All images and detailed analysis are available on the Radiology PACS. ?? MACRO: None ?? Signed by: Ruddy Lopez 12/29/2024 8:09 AM Dictation workstation: ?? [id number] Narrative [facility] - 12/29/2024 8:09 AM EDT Interpreted By: Ruddy Lopez, STUDY: DEXA BONE DENSITY02/13/2024 10:50 am ?? INDICATION: Signs/Symptoms:r/o osteoporosis, NEED AXIAL SKELETON IMAGES.. The patient is a 63 y/o ??year old M. ?? ,M54.12 Radiculopathy, cervical region ?? COMPARISON: None. ?? ACCESSION NUMBER(S): [id number] ?? ORDERING CLINICIAN: DORETHA HARRIS ?? TECHNIQUE: [...] Radiculopathy, cervical region COMPARISON: None. ACCESSION NUMBER(S): [id number] ORDERING CLINICIAN: DORETHA HARRIS TECHNIQUE: DEXA BONE [...] Ruddy Lopez 12/29/2024 8:09 AM Dictation workstation: [id number] Authorizing ProviderResult TypeResult StatusXilara FELIZG DXA PROCEDURES Final ResultPerforming OrganizationAddressCity/State/ZIP CodePhone Number MMODAL from Last 3 Months or Most Recently Relevant to Health Maintenance Additional Health Concerns Active ProblemsNoted DateDiagnosed DatePatient has spine zkvnmml1001/09/2024 Insurance * Guarantor: Se Kong TypeRelation to PatientDate of BirthPhoneB[facility] AddressPersonal/FoqkcyGzvq68/09/1961 [address] [place] [address] * Guarantor: Se Kong TypeRelation to PatientDate of BirthPhoneBilohio valley medical center AddressPersonal/VyapbzOdli59[birth year][address] [place] [address] Advance Directives For more information, please contact: [phone] (Available ) TypeDate RecordedPatient RepresentativeExplanationLiving Will10/05/2023 9:39 AM * Full Code (Latest Code Status on File) Date ActivatedDate BvxjnoexskxBcrvyscf69/23/2024 6:57 PMQuestionAnswerComments Plan of Care:* Code Status Discussion Completed Decision Maker:* Patient * Full Code Date ActivatedDate FnyzesykghhXuxvmvfl07/23/2024 11:50 AM04/09/2024 6:57 PM QuestionAnswerCommentsPlan of Care:* Code Status Discussion Completed Decision Maker:* Patient Care Teams Team MemberRelationshipSpecialtyStart DateEnd Date Jax Hastings, [address] [place] [address] [facility]01/03/19 [place] [address] [place] [address] Consulting PhysicianHematology and Oncology10/05/23 René Narayanan PA-C [address] [place] [address] Physician AssistantNeurosurgery12/12/23
--- OUTSIDE RECORDS SUMMARY | 2025-06-15 12:31 | XMS_ITS | Clinical Summary ---
Author Organization [facility] Address [address] [place] [address] Care Team Providers Care District Leader Name Role Phone Andreagideon Griselda Neisha JOSÉ Primary Care Provider [phone] Allergies Active AllergyReactionsCriticalityNoted CkkyNwftopeaEkepqfokxbTvfps85/10/2019 Other Reaction(s): hives, Unknown Medications MedicationSigDispense QuantityRefillsLast [...] tablet Take 40 mg by mouth at szfkmeq8607/06/2023ctive lisinopril 5 MG tablet Take 5 mg by mouth Daily09/05/2023ctive Brexpiprazole 1 MG tablet 08/02/2023ctive HYDROcodone-acetaminophen (Byram) 5-325 MG tablet 10/10/2023ctive terbinafine (LamISIL AT) 1 % cream Indications:Tinea manuumApply to the affected area on the hand, bid, 30 day supply 42 g ctive albuterol HFA 90 mcg/act inhaler Inhale 2 puffs every 4 (four) hours if aercne8504/10/2024ctive tiZANidine (Zanaflex) 4 MG capsule Indications:Cervical stenosis of spinal canaltizanidine 4 mg capsule take 1 capsule by mouth twice a day if needed for MUSCLE SPASTICITY 60 capsule 1105Active dexAMETHasone (Decadron) 2 MG tablet Indications:Cervical stenosis of spinal fgjmz9qu 3 pills po X3 days,2 pills po daily X3 days , then 1 pill po daily X3 days then stop 9 days 18 pills 18 tablet 5Active folic acid-vit B6-vit B12 2.5-25-1 MG tablet tablet Indications:Occipital neuralgia of left sideTake 1 tablet by mouth Daily 30 tablet 6Active Active Problems ProblemNoted DateDiagnosed DateNerve root and plexus disorder, unspecified 08/05/2024Other nerve root and plexus cuwqmpvcg54/05/2024AD (coronary artery disease)02/26/2024Senile sbfmdnvzuczq70/18/2024Generalized anxiety disorder 12/12/2023cute effusion of left ear10/16/2023cute left-sided thoracic back pain10/16/2023cute ztyqbwtno19/30/2024nxiety and bloteqgusl80/30/2024V bloc first bhabqd0010/16/2023rain mass10/16/2023urning wmjpqlohi91/30/2024ardiac dcxbeuufur91/30/2024roductive cough10/16/2023AD (peripheral artery disease) 10/16/20234483Hwpgoyzojqlekv84/30/2024Heart block10/16/2023Essential hypertension 10/16/2023yshidrotic dxkzkx0610/16/2023History of oral lcaxgt9310/16/2023izziness 10/16/2023aresthesia of left lower vmkbitxun36/30/2024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/16/20232010Lfvxuoay37/13/2024entral pontine wvejfqxgsjlj96/13/2024igarette nicotine dependence with nicotine-induced gcprsroy58/27/2024bnormal brain MRI 4197Zulvsushmze74/05/2024Acute pain of left imfuyqen25/05/2024ervical uworeksu75/16/2024adicular pain in left arm04/04/2023ervical radiculopathy 03/01/2023reglaucoma, unspecified, right eye12/29/2022Visual disturbance 12/29/20228603Fqpftbpt51/14/2023Ulnar ymvdxhtkwx22/14/2023ain in left arm12/29/2022 Skin sensation hrrdjelhrqd64/14/2023ervical paraspinal muscle spasm12/29/2022 Cervical stenosis of spinal canal12/29/2022egeneration of cervical intervertebral disc12/10/2022ge-related nuclear cataract of right eye12/10/2022 Impairment of jjocwld3612/10/20226074Pvzzsuwx62/25/2023Lumbar uyjnonbgargse50/25/2023 Magnetic resonance imaging of brain kttzoext55/25/2023Malignant (primary) neoplasm, pnxpyhtrfsq72/25/4605Votbhpmh78/25/0159Cgamfhc83/25/2023Schwannoma 12/10/20226448Yiewzfhluqbb19/25/2023Secondary and unspecified malignant neoplasm of lymph node, /25/2023Vertigo of central nmprkv7012/10/2022Occipital jeiarrxew74/25/2023rachial bccwafdbgr99/08/2023Occipital neuralgia of right side11/23/2022Neck pain11/23/2022Lung bhmtdys9310/13/2021rimary squamous cell carcinoma of head and neck10/13/2021 Resolved Problems ProblemNoted DateDiagnosed DateResolved DateGlioma of brain/06/2023 Encounters DateTypeDepartmentCare DnjyRubhaxsaefh68/26/2025Orders Only [facility] [address] [place] [address] Amber Mi MA Occipital neuralgia of left side (Primary Dx)04/30/2025 2:00 PM ESTClinical Support [facility] [address] [place] [address] Elvi Traore MD Other nerve root and plexus disorders (Primary Dx)04/30/2025amboo flowsheet [facility] [address] [address] Elvi Traore MD 04/30/20254697Ceervj11/10/2025Results Follow-Up [facility] [address] [place] [address] Elvi Traore MD MRI HEAD/BRAIN WO/W CONTR04/25/20253041Qzmazl20/21/2025linisync Result Encounter [facility] External Department Unsolicited Elvi Traore MD 03/24/2025Telephone [facility] [address] [place] [address] Ary Lugo, RT. R 03/24/2025Telephone [facility] [place] [facility] [address] [place] [address] Ary Lugo, RT. R 03/18/2025 11:30 AM EDTClinical Support [facility] [place] [facility] [address] [place] [address] Elvi Traore MD Other nerve root and plexus disorders (Primary Dx); Acute pain of left shoulder; Acute pain of right ibymfwtc08/01/2025amboo flowsheet [facility] [address] [place] [address] Elvi Traore MD 03/18/20251251Lqxnmi04/30/2025Travelfrom Last 3 Months Immunizations ImmunizationAdministration DatesNext ZcnWxar6603/15/2014 Family History Medical HistoryRelationNameCommentsCancerFatherStrokeFatherHypertensionMother RelationNameStatusCommentsFatherDeceasedMotherAlive Social History Tobacco UseTypesPacks/DayYears UsedDateSmoking Tobacco: Every DayCigarettes Smokeless Tobacco: Never Tobacco Cessation:Ready to Q uit: Not Asked; Counseling Given: Not Answered Comments:6-10 cigarettes/day Alcohol UseStandard Drinks/WeekCommentsNot Currently0 (1 standard drink = 0.6 oz pure alcohol)Sex and Gender InformationValueDate RecordedSex Assigned at Male11/22/2022 2:37 PM EDTLegal CgqKhhc8508/30/2022 7:14 PM EDTGender IdentityMale 11/22/2022 2:37 PM EDTSexual GeakkmkrcjwZgtojyao39/07/2023 2:37 PM EDT Last Filed Vital Signs Vital SignReadingTime TakenCommentsBlood Imzgimti510/9302/04/2025 2:41 PM EDT Xhdre47058/20/2025 2:41 PM NWAOkxyvcfkryj56.5 ??C (97.7 ??F)10/04/2023 11:33 AM EDTRespiratory Uxxl549109/10/2023 10:29 AM EDTOxygen Rjanuzwkmy35%10/04/2023 11:33 AM EDTInhaled Oxygen Concentration--Uooiza14.1 kg (159 lb)02/04/2025 2:41 PM EDT Txmdlk800.7 cm (5' 8 )05/21/2024 2:04 PM ESTBody Mass Index24.18107/22/2023 2:04 PM EST Plan of Treatment DateTypeDepartmentCare Team (Latest Contact Info)Opyjvpbkjso18/24/2026 8:30 AM EDTOffice Visit [facility] [place] [facility] [address] [place] [address] Anahi Franco PA [address] [place] [address] Health MaintenanceDue DateLast DoneCommentsCT Nylacelwcwba70/09/1963Colonoscopy 1962Colorectal Cancer Dqygjiear82/09/1963FIT-DNA1962FIT1962 FOBT1962 3490Vxycwnqakhwht83/09/1963Influenza Vaccine (#1)2025 Pneumococcal Vaccine: Pediatrics (0 to 5 Years) and At-Risk Patients (6 to 64 Years)Aged OutNo longer eligible based on patient's age to complete this topic Procedures Procedure NamePriorityDate/TimeAssociated DiagnosisCommentsMRI HEAD/BRAIN WO/W CONTR04/07/2025 3:50 PM EDT from Last 3 Months Results * MRI HEAD/BRAIN WO/W CONTR (04/07/2025 3:50 PM EDT)Anatomical RegionLaterality ModalityRadiographic ImagingSpecimen (Source)Anatomical Location / Laterality Collection Method / VolumeCollection TimeReceived Time04/07/2025 3:50 PM EDT Narrative 04/07/2025 3:53 PM EDT [facility] ?[address] ? [place], [facility] ? Magnetic Resonance Report ? Signed Patient: SHANTEL KONG ?MR#: [id number] : 1960 ?Acct:[id number] Age/Sex: 64 / M ?ADM Date: 04/03/25 Loc: LAB Attending Dr: ELVI TRAORE Ordering Physician: ELVI TRAORE Date of Service: 04/03/25 Procedure(s): MR head/brain wo/w con Accession Number(s): [id number] cc: ELVI TRAORE ; GRISELDA HASTINGS ? [facility] ? [address] ? [place] [address] ? Patient Name: SHANTEL ??KONG MRN: [facility]:[id number] ? date: 1960 ?Sex: M Assigned Patient Location: LAB Current Patient Location: Accession/Order Number: [id number] Exam Date: 04/03/2025 ??13:45 ?Report Date: 04/07/2025 [...] Hutchins M.D. ??04/07/2025 3:50 PM Dictation Location: RADIO-PC-29 Electronically authenticated by: [id number] ??Y ?? Date: 04/07/2025 ??15:50 Dictated By: ?Gee Hutchins M.D. Signed By: ?04/07/25 1553 DD/ 1550 TD/TT: ? Cad Operator: Procedure Note Radiology, Radiologist, MD - 04/27/[address] [address] Magnetic Resonance Report Signed Patient: SHANTEL KONGMR#: [id number] : 1960Acct:[id number] Age/Sex: 64 / MADM Date: 04/03/25 Loc: LAB Attending Dr: ELVI TRAORE Ordering Physician: ELVI TRAORE Date of Service: 04/03/25 Procedure(s): MR head/brain wo/w con Accession Number(s): [id number] cc: ELVI TRAORE ; GRISELDA HASTINGS The [address] [address] Patient Name: SHANTEL KONG MRN: [facility]:[id number] date: 1960 Sex: M Assigned Patient Location: LAB Current Patient Location: Accession/Order Number: [id number] Exam Date: 04/03/2025 13:45 Report Date: 04/07/2025 [...] Hutchins M.D. 04/07/2025 3:50 PM Dictation Location: [place] [address] Electronically authenticated by: [id number] Y Date: 5:50 Dictated By: Gee Hutchins M.D. Signed By:04/07/25 1553 DD/ 1550 TD/TT: Cad Operator: Authorizing ProviderResult TypeResult StatusElvi Traore MDIMG XR PROCEDURES Final Result from Last 3 Months Insurance Care Teams Team MemberRelationshipSpecialtyStart DateEnd Date Griselda Hastings DO [address] [place] [address] PCP - GeneralFamily Medicine02/13/23
--- OUTSIDE RECORDS SUMMARY | 2025-06-15 12:31 | XMS_ITS | Encounter Summary ---
Author Organization [facility] Address [address] [place] [address] Care Team Providers Care Union Carpenter Name Role Phone Jax Hastings DO Primary Care Provider [phone] Lilliam Cason MD Unavailable [phone] Encounter Details DateTypeDepartmentCare Team (Latest Contact Info)Dyrmvrlfbft24/17/2025Travel Social History Tobacco UseTypesPacks/DayYears UsedDateSmoking Tobacco: Every DayCigarettes0.5 52.7Started: 1972Smokeless Tobacco: NeverAlcohol UseStandard Drinks/Week CommentsNever0 (1 standard drink = 0.6 oz pure alcohol)PHQ-2AnswerDate Recorded Patient Health Questionnaire-2 Rvuvr415Humiliation, Afraid, Rape, and Kick questionnaireAnswerDate RecordedWithin the last year, have you been afraid of your partner or ex-partner?Patient unable to isxoug7505/25/2025Emotionally AbusedNot on file05/25/2025Physically AbusedNot on file05/25/2025Sexually Abused Not on file05/25/2025Sex and Gender InformationValueDate RecordedSex Assigned at WwdevRryd89/29/2025 1:20 PM EDTLegal GabYdqr6802/13/2025 9:31 AM EDTGender FuogrxapZsul09/29/2025 1:20 PM EDTSexual OrientationChoose not to disclose 02/13/2025 1:20 PM EDTdocumented as of this encounter Plan of Treatment DateTypeDepartmentCare Team (Latest Contact Info)Zpfahvqwvsx09/30/2025 1:00 PM ESTOffice Visit [facility] [address] [place] [address] Opal Holley, LUCIO [address] [place] [address] documented as of this encounter Visit Diagnoses Not on filedocumented in this encounter Care Teams Team MemberRelationshipSpecialtyStart DateEnd Date Jax Hastings DO [address] [place] [phone] PCP - GeneralFamily Medicine02/13/25 Lilliam Cason MD [address] [place] [address] Referring PhysicianCardiovascular Xfcdmua33/7/25documented as of this encounter
--- OUTSIDE RECORDS SUMMARY | 2025-06-15 12:31 | XMS_ITS | Clinical Summary ---
Author Organization [facility] Address [address] [place] [address] Care Team Providers Care Team Manager Name Role Phone Jax Hastings Primary Care Provider [phone] Jax Hastings Unavailable [phone] Oziel Cadena MD Unavailable [phone] Allergies Active AllergyReactionsCriticalityNoted CmppHzoxyghdZpgqtdaxcxQrwpa54/10/2019 Medications MedicationSigDispense QuantityRefillsLast FilledStart DateEnd DateStatus citalopram [...] 2 tablets by mouth at bedtime if qpweig1605/26/2022ctive mirtazapine (REMERON) 15 mg tablet Take by [...] cell carcinoma of head and neck 10/13/2021Lung dfbxzma5610/13/2021Glioma of brain10/13/2021 Immunizations ImmunizationAdministration DatesNext Duetetanus diphtheria pertussis (Tdap) vaccine, age 7+ yr (ADACEL, BOOSTRIX)03/15/2014 Family History Medical HistoryRelationCommentsCancerFatherBladder cancer, Larynx cancerCancer Paternal GrandfathercancerRelationStatusCommentsFatherDeceasedPaternal GrandfatherDeceased Social History Tobacco UseTypesPacks/DayYears UsedDateSmoking Tobacco: FormerCigarettes1.540 Smokeless Tobacco: Never Comments:quit smoking 01/2019 Alcohol UseStandard Drinks/WeekCommentsNot Currently0 (1 standard drink = 0.6 oz pure alcohol)quit 2002PHQ-2AnswerDate RecordedPHQ-2 bcrph075rea Deprivation IndexAnswerDate RecordedNational Score (1-100), lower number is lower efgz9541State Score (1-10), lower number is lower srtr373 Data from: https://www.neighborhoodatlas.medicine.[facility]/. Last address used for [address]/03/[birth year]22Sex and Gender InformationValueDate RecordedSex Assigned at QkyllWcso27/05/2023 2:46 PM EDTLegal MuxHqde5811/19/2018 10:55 AM EDTGender XgkdginsAykg84/05/2023 2:46 PM EDTSexual OrientationStraight 09/20/2022 2:46 PM EDTOccupationIndustryJob Start DateJob End DateGliddenNot on fileNot on fileNot on fileTree ServiceNot on fileNot on fileNot on file Last Filed Vital Signs Vital SignReadingTime TakenCommentsBlood Evlarfrg659/8905 9:23 AM EDT Zlhuc7105/23/2025 9:23 AM NUYUurvumikaev76.4 ??C (97.5 ??F)11/07/2024 9:23 AM EDTRespiratory Cahb183711/07/2024 9:23 AM EDTOxygen Jldjammody70%11/07/2024 9:23 AM EDTInhaled Oxygen Concentration--Hachsg83.3 kg (174 lb 13.2 oz)11/07/2024 9:23 AM FHGTnbsmr205.6 cm (5' 7.17 )11/07/2024 9:23 AM EDTBody Mass Index27.25 11/07/2024 9:23 AM EDT Plan of Treatment DateTypeDepartmentCare Team (Latest Contact Info)Igezmnsqeor59/15/2026 10:15 AM EDTAppointment Radiology Pet CT [address] [place] [address] Ct CN with contrast and lab11/06/2025 9:00 AM EDTVisit (SP) Office Hematology/Oncology [address] [place] [address] Memo Acevedo MD [address] [place] [address] 1 [address] follow up for ct and lab resultsHealth MaintenanceDue DateLast Done CommentsAnxiety Kfeeksvuy36/09/1981Depression Mbpekvtzt72/09/1981HIV Screening 1980Hepatitis C Zjwnjphwv05/09/1981Lipid Jdranflif56/09/1998CT Cveqezidowlx96/09/2008Cologuard (FIT-DNA)11/25/20074567Omnaqujtdcs45/09/2008 Colorectal Cancer Vuenaqfps69/09/2008Fecal Occult Blood11/25/2007Prostate Cancer Screening Cbmvlspvxv35/09/4816Cetvgdewxeoxq19/09/2008Pneumococcal Vaccine: 50+ (1 of 1 - PCV)2012Shingrix Vaccine (1 of 2)2012Medicare Annual Wellness Visit4DTaP,Tdap,Td Vaccine (2 - Td or Tdap)03/15/2024 03/15/2014Covid-19 Vaccine (3 - 2024- season)/11/2020, 12/30/2020 Influenza Vaccine (#1)2025Diabetes Qwdfszswi84/, 02/11/2024, 10/26/2023, Additional history existsRSV Vaccine (1 - 1-dose 75+ series)2037 Procedures Procedure NamePriorityDate/TimeAssociated DiagnosisCommentsCOMPREHENSIVE METABOLIC JHBEBYdenbvy52/10/2024 9:02 AM EDT 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) from Last 3 Months or Most Recently Relevant to Health Maintenance Results * (ABNORMAL) COMP METABOLIC PANEL (10/26/2023 9:02 AM EDT)ComponentValueRef RangeTest MethodAnalysis TimePerformed AtPathologist SignatureProtein, Total 6.46.3 - 8.0 g/dL10/26/2023 9:39 AM [facility] Albumin4.33.9 - 4.9 g/dL10/26/2023 9:39 AM [facility] LABCalcium, Total9.98.5 - 10.2 mg/dL10/26/2023 9:39 AM [facility] LABBilirubin, Total0.50.2 - 1.3 mg/dL10/26/2023 9:39 AM [facility] LABAlkaline Lcibffrthqq1057 - 113 U/L 10/26/2023 9:39 AM [facility] LABAST9(L)14 - 40 U/L 10/26/2023 9:39 AM [facility] NPVGDM5525 - 54 U/L 10/26/2023 9:39 AM [facility] VNHRvsrnbe9138 - 99 mg/dL10/26/2023 9:39 AM [facility] LABComment: The [place] Diabetes Association (ADA) provides guidance for cutoff [...] Standards of Medical Care in Diabetes 2016, [place] [employer]. Diabetes Care. 2016.39(Suppl 1). IAF799 - 24 mg/dL10/26/2023 9:39 AM [facility] Creatinine1.010.73 - 1.22 mg/dL10/26/2023 9:39 AM [facility] BJFIgfvzx472494 - 144 mmol/L10/26/2023 9:39 AM [facility] LABPotassium4.03.7 - 5.1 mmol/L10/26/2023 9:39 AM [facility] FBSXgrvsttk904(H)97 - 105 mmol/L10/26/2023 9:39 AM EDT [facility] XBFKM14003 - 30 mmol/L10/26/2023 9:39 AM EDT [facility] LABAnion Gap8(L)9 - 18 mmol/L10/26/2023 9:39 AM [facility] LABEstimated Glomerular Filtration Rate 85>=60 mL/min/1.73m 10/26/2023 9:39 AM [facility] LABComment:Estimated Glomerular Filtration Rate (eGFR) is calculated [...] VolumeCollection TimeReceived TimeBloodBLOOD SPECIMEN / UnknownVenipuncture / Bukpnkp6610/26/2023 9:02 AM EDT10/26/2023 9:11 AM EDT Narrative Authorizing ProviderResult TypeResult StatusVivenori Acevedo MDLABORATORYFinal ResultPerforming OrganizationAddressCity/State/ZIP CodePhone Number [facility] [address] [place] [address] from Last 3 Months or Most Recently Relevant to Health Maintenance Insurance Care Teams Team MemberRelationshipSpecialtyStart DateEnd Date Jax Hastings [address] [place] [phone] PCP - GeneralFamily Medicine11/20/18 Jax Hastings [address] [place] [phone] ReferringFamily Medicine11/20/18 Oziel Cadena MD [id number] [facility] [address] [address] ReferringNeurology08/18/22
--- OUTSIDE RECORDS SUMMARY | 2025-06-15 12:37 | XMS_ITS | CCD ---
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 Name Role Phone Griselda Krause Primary Care Provider Griselda Krause Attending Provider Griselda Krause Unavailable Unavailable Unavailable Griselda Krause Unavailable Sheng Schneider Unavailable Griselda Krause Primary Care Provider Griselda Krause Unavailable DO Griselda Krause Primary Care Provider MD Oziel Cadena Attending Provider [phone] BAILEY Gaytan Emergency Provider MD Loi Wong Jr Emergency Provider Unavailable Unavailable DO Griselda Krause Primary Care Provider [phone] MD Oziel Cadena Attending Provider BAILEY Gaytan Emergency Provider MD Loi Wong Jr Emergency Provider BAILEY Mota Attending Provider BAILEY Mota Attending Provider DO Griselda Krause Primary Care Provider [phone] MD Oziel Cadena Attending Provider Trish Carney Unavailable Griselda Krause Primary Care Provider Darling Griselda Wright Unavailable Tammi NORRIS, Oziel Ruiz Unavailable [phone] FLORES CAT Attending Unavailable FLORES CAT Admitting Unavailable KUNS, GRISELDA WRIGHT Primary Care Unavailable Kuns, DO Griselda Primary Care Provider [phone] Kuns, DO Griselda Attending Provider MD Lima Joseph Attending Provider Dr. BRET HDEZ Attending Unavailable PCP, OTHER Primary Care Unavailable PCP, Other Primary Care Physician Kuns, DO Griselda Primary Care Provider BAILEY Gaytan Emergency Provider [phone] quentin, DO Rohit Mullins Emergency Provider Darling, DO Camara Attending Provider [phone] Lilliam Cason Unavailable Andreas, DO Griselda Primary Care Provider BAILEY Gaytan Emergency Provider quentin, DO Rohit Mullins Emergency Provider Darling, DO Griselda Attending Provider [phone] MD Lilliam Cason Attending Provider Ruddy Harvey Unavailable [phone] BAILEY Mota Attending Provider MD Ruddy Harvey Attending Provider Kuns, DO Griselda Primary Care Provider Kuns DO, Griselda R Primary Care Provider [phone] Kuns, DO Griselda Primary Care Provider [phone] JOSE CRUZ KHAN Attending Unavailable JOSE CRUZ KHAN Referring Unavailable KUNS, GRISELDA R Primary Care Unavailable JOSE CRUZ KHAN Attending Unavailable JOSE CRUZ KHAN Referring Unavailable KUNS, GRISELDA R Primary Care Unavailable Kuns, DO Griselda Primary Care Provider MD Ruddy Harvey Attending Provider [phone] Darling DOGriselda R Primary Care Provider [phone] Andreas DO, Griselda R Primary Care Provider Stiven NORRIS, Helder Jarrett Unavailable AndreasDO Camara Attending Provider Griselda Krause Primary Care Provider Oziel Cadena MD Unavailable [phone] Andreas DO, Griselda R Primary Care Provider [...] Provider Manisha Negron APRN Emergency Provider [phone] Andreas DOGriselda Other Provider Manisha Negron APRN Attending Provider Milks PA-C, Solomon Nae Attending Provider Griselda Krause DO R Primary Care Provider [phone] Stiven NORRIS, Helder Jarrett Unavailable Milks PA-C, [...] Care Unavailable Conchita NORRIS, Nathanael Attending Provider [phone] Kuns , Griselda Attending Provider HARRIS, XIAOFEI [...] Provider Danya CERVANTES, Elizabeth Mullins Attending Provider [phone] Conchita NORRIS, Nathanael Other Provider Solomon Montez APRN Attending Provider Kuns DO, Griselda Attending Provider Kuns DO, Griselda Primary Care Provider Solomon Montez APRN Attending Provider Roxy NORRIS, Andri Attending Provider Sofia Arias DO Attending Provider Kuns DO, Griselda Primary Care Provider [phone] Kuns DO, Griselda Attending Provider Manisha Negron [...] Attending Provider Hugo Sofia JOSÉ Attending Provider [phone] Griselda Krause DO Attending Provider Lilliam Cason MD Attending Provider DEBRA FIGUEROA Referring Unavailable DEBRA FIGUEROA Attending Unavailable Unavailable Unavailable Unavailable Allergies Allergy ClassificationReported Allergen(s)Allergy TypeDate of OnsetReaction(s) FacilityCephalosporins (antibiotic) (1 source)CephalexinDrug Wcwzwpy81-67-0856KabtiSgylxqyafMem[facility] (20 sources)Cephalexin; Translations: [CEPHALEXIN]Drug Upvulwq58-01-0354Wwsmx [facility] (20 sources)Cephalexin; Translations: [Keflex]Drug AllergyOr[facility] [employer] Other (1 source)Cephalexin; Translations: [Keflex]Drug AllergyHiS[facility] [place] (17 sources)Keflet; Translations: [KEFLET]Propensity to adverse reactions 12-02-0565RbqmpCpvrwvbkowKettering Health [facility] (5 sources)varenicline; Translations: [varenicline]Drug Yvragag89-88-8394 [facility] (1 source)ALLERGIES NOT ON FILE; Translations: [ALLERGIES NOT ON FILE]Propensity to adverse reactions (disorder)[facility] Rep[facility] NEGATED: Highlighted row has been ruled out! (1 source)natural latex rubber; Translations: [LATEX, NATURAL RUBBER]Drug allergy (disorder)S EnterpriseNEGATED: Highlighted row has been ruled out! (1 source)No IV Contrast Allergy.; Translations: [IV Dye, Iodine Containing]Drug allergy (disorder)[facility] [place] Medications Current Medications MedicationDrug Class(es)DatesSig (Normalized)Sig (Original)acetaminophen 325 mg oral tablet (1 source)Start: 88-34-1749uuyv 1 tablet by mouth every six gcxam106 mg, oral, Every 6 hours, First dose on Sun04/09/24 at 1915, Phase II/On Unit, If ordered PRN for pain, nurse is permitted to administer this medication for higher pain scores based on patient preference? Yesacetaminophen 325 mg / HYDROcodone bitartrate 7.5 mg oral tablet (20 sources)Opioid AgonistStart: 75-61-9796pgmm 1 tablet by mouth twice daily as needed for painHydrocodone-Acetaminophen 7.5-325 mg tablet Active 1 TAB PO Twice daily as needed for pain October 05, 2024 11:00pm Complies with drug therapy Start: 04-01-2024 End: 79-62-0537loyd 1 tablet by mouth twice dailyHydrocodone-Acetaminophen 7.5- 300 mg tablet Discontinued 1 TAB PO Twice daily 0 March 31, 2024 11:00pm April 28, 2024 9:44amStart: 41-25-4620FKNSZmakhme-acetaminophen ([place]) 5- 325 MG tablet 10/10/2023 ActiveStart: 09-05-2023 End: 05-23-0912opuq 1 tablet by mouth every eight hours as neededHydrocodone- Acetaminophen 5-325 mg tablet Discontinued TAB PO Every 8 hours as needed 0 August 11:00pm April 01, 2024 10:01amStart: 29-46-3309chev 1 tablet by mouth once daily as needed for painHYDROcodone-acetaminophen ([place]) 5-325 MG tablet take 1 tablet orally daily NEEDED FOR PAIN MUST LAST 30 DAYS 10/10/2023 ActiveStart: 12-10-2017 End: 86-18-0629wxti 1 tablet by mouth every four hoursHydrocodone-Acetaminophen ([place]) 5-325 mg tablet Discontinued 1 TAB PO Q4H 10 December 10, 2017 April 29, 2018 2:12pm Pleurodynia Pleurodynia pain End: 95-98-3030ycjl 1.5 tablets by mouth twice daily as needed for pain HYDROcodone-acetaminophen ([place]) 5-325 mg tablet Take 1.5 tablets by mouth 2 times a day as neededfor severe pain (7 - 10). 04/10/2024 Discontinued (Stop Taking at Discharge)acetaminophen 325 mg / oxyCODONE hydrochloride 5 mg oral tablet (20 sources)Opioid AgonistStart: 04-30-2024 End: 07-31-1377wsrb 1 tablet by mouth every six hours for painoxyCODONE- acetaminophen (Percocet) 5-325 mg tablet Indications: Acute postoperative pain Take 1 tablet by mouth every 6 hours if needed for severe pain (7 - 10) (pain) for up to 7 days. 28 tablet 04/30/2024 05/07/2024 ActiveStart: 04-28-2024 End: 39-42-7519juql 1 tablet by mouth every eight hours as neededOxycodone- Acetaminophen (Percocet) 5-325 mg tablet Discontinued 1 TAB PO Every 8 hours as needed 0 April 28, 2024 12:00am September 20, 2024 10:05amStart: 04-10-2024 End: 29-23-4993gois 1 tablet by mouth every six hours for painoxyCODONE- acetaminophen (Percocet) 5-325 mg tablet Indications: Cervical radiculopathy Take 1 tablet by mouth every 6 hours if needed for severe pain (7 - 10) (pain) for up to 7 days. 28 tablet 04/10/2024 04/17/2024 ActiveStart: 04-17-2022 End: 79-15-2812amtz 1 tablet by mouth every six hours as needed for pain Oxycodone-Acetaminophen (Percocet) 5-325 mg tablet Discontinued 1 - 2 TAB PO Every 6 hours as needed for pain 20 4 0 April 17, 2022 July 17, 2022 8:01am Acute left-sided thoracic back pain Pain in thoracic spine1 ml alirocumab 75 mg/ml auto-injector (5 sources)PCSK9 InhibitorStart: 04-81-1970oyydcp 75 mg by subcutaneous injection every other weekAlirocumab (Praluent Pen) 75 mg/mL pen injector Active 75 MG SUBCUT Q14D 7 90 November 02, 2024 11:00pm Complies with drug therapy Alirocumab (Praluent Pen) 75 mg/mL pen injector (3 sources)Start: 27-98-4935znxwrb 75 mg by subcutaneous injection every other weekAlirocumab (Praluent Pen) 75 mg/mL pen injector Active 75 MG SUBCUT Q14D 7 90 November 03, 2024 12:00amaspirin 81 mg delayed release oral tablet (20 sources)Platelet Aggregation Inhibitor, Nonsteroidal Anti-inflammatory Drug Start: 45-36-0264vewi 1 tablet by mouth once dailyaspirin 81 mg EC tablet Indications: Cervical radiculopathy Take 1 tablet (81 mg) by mouth once daily. Do not fill before April 14, 2024. 04/14/2024 ActiveStart: 20-21-0157kwbp 1 tablet by mouth once dailyaspirin 81 mg EC tablet Indications: Cervical radiculopathy Take 1 tablet (81 mg) by mouth once daily. Do not fill before April 14, 2024. 04/14/2024 ActiveStart: 08-02-2023 End: 96-06-3073tlzh 1 tablet by mouth once dailyAspirin 81 mg tablet,delayed release (DR/EC) Active 81 MG PO Daily August 02, 2023 12:00am Complies with drug therapyStart: 07-17-2022 End: 35-23-2554ytex 1 capsule by mouth once dailyAspirin 81 [...] mg oral tablet (2 sources)gamma-Aminobutyric Acid-ergic AgonistStart: 42-85-0751vyvt 1 tablet by mouth three times daily as neededbaclofen (Lioresal) 10 MG tablet Take 1 tablet 3 times a day by oral route as needed for 15 days. Active bisacodyl 5 mg delayed release oral tablet (1 source)Stimulant LaxativeStart: 99-72-6388xkjv 1 tablet by mouth every twenty-four hours as neededbusPIRone hydrochloride 10 mg oral tablet (20 sources)Start: 93-98-8095lfot 5 mg by mouth twice daily5 mg, oral, 2 times daily, First dose on Sun04/09/24 at 2100, Phase II/On UnitStart: 01-31-2024 End: 80-90-4348Jxrtynznr 5 mg tablet Discontinued 5 MG PO January 30, 2024 11:00pm July 03, 2024 9:50amStart: 12-31-2023 End: 00-13-7821dyjg 1 tablet by mouth once daily in [...] meq/ml injectable solution (2 sources)Start: 04-09-2024 End: 91-10-2177Taaof: 04-09-2024 End: 78-78-2312wzoj 20 mL intravenously every hour20 mL/hr, intravenous, Continuous, Starting on Sun04/09/24 at 1215, Preprocedurechlorhexidine gluconate 1.2 mg/ml mouthwash (10 sources)Start: 02-11-2024 End: 42-26-9603jstnpkkkrsndu (Hibiclens) 4 % external liquid Indications: Cervical radiculopathy , Senile osteoporosis Use as directed daily preoperatively 473 mL 02/11/2024 04/10/2024 Discontinued (Stop Taking at D ischarge)Start: 02-11-2024 End: 88-10-6641cwhkthrmlsbru (Peridex) 0.12 % solution Indications: Cervical radiculopathy , Senile osteoporosis Swish and spit with 15ml of solution the night before and morning of surgery. Do not swallow. 15 mL 02/11/2024 04/10/2024 Discontinued (Stop Taking at Discharge)citalopram 20 mg oral tablet (20 sources)Serotonin Reuptake InhibitorStart: 41-49-3369veza 1 tablet by mouth once dailyCitalopram 20 mg tablet Active 20 MG PO Daily 90 1 February 19, 2025 10:51am Anxiety and depression Anxiety disorder, unspecified Depression, unspecified Complies with drug therapyStart: 12-03-2023 End: 54-32-8499ehfz 1 tablet by mouth once dailyCitalopram (Celexa) 10 mg tablet Discontinued 10 MG PO Daily 90 1 April 01, 2024 10:02am September 29, 2024 2:11pmStart: 12-26-2021 End: 21-60-1070tnzd 1 tablet by mouth once dailyCitalopram 20 mg tablet Discontinued 20 MG PO Daily August 02, 2023 12:00am December 03, 2023 9:48am FreeTextSi tablet Orally Once a day; Note: Source Status: Continue; Provider: Darling Camara RStart: 96-90-0807zile 1 tablet by mouth once daily citalopram (CELEXA) 40 mg tablet Take 40 mg by mouth once daily. 0 10/22/2018 ActiveStart: 12-10-2017 End: 43-82-3115Dseshogsrp 40 mg tablet Discontinued 20 MG PO Daily December 09, 2017 11:00pm April 29, 2018 2:12pmStart: 12-10-2017 End: 44-11-1355iyqt 20 mg by mouth once dailyCitalopram Discontinued 20 MG PO Daily December 10, 2017 12:00am April 29, 2018 3:12pmtake 0.5 tablet by mouth once dailycitalopram (CeleXA) 20 mg tablet Take 0.5 tablets (10 mg) by mouth once daily. ActiveComment on above:Take 40 mg by mouth once daily.clopidogrel 75 mg oral tablet (20 sources)P2Y12 Platelet InhibitorStart: 00-64-6747herp 1 tablet by mouth once dailyClopidogrel 75 mg tablet Active 75 MG PO Daily February 18, 2025 11:00pm Complies with drug therapyStart: 70-02-5029frfsyrwpklx (Plavix) 75 mg tablet Indications: Cervical radiculopathy Take 1 tablet (75 mg) by mouth once daily. Do not fill before April 23, 2024. 04/23/2024 ActiveStart: 04-23-2024 clopidogrel (Plavix) 75 mg tablet Indications: Cervical radiculopathy Take 1 tablet (75 mg) by mouth once daily. Do not fill before April 23, 2024. 04/23/2024 ActiveStart: 04-14-2024 End: 16-03-3673rnjs 1 tablet by mouth once dailyclopidogrel (Plavix) 75 mg tablet Indications: Cervical radiculopathy Take 1 tablet (75 mg) by mouth once daily. Do not fill before April 14, 2024. 04/14/2024 04/10/2024 Discontinued Start: 05-07-2023 End: 57-47-0668apzl 1 tablet by mouth once dailyClopidogrel (Plavix) 75 mg tablet Discontinued 75 MG PO Daily August 02, 2023 12:00am January 23, 2024 1:33pm FreeTextSi tablet Orally Once a day; Note: Source Status: Taking; Provider: Darling Camara ( )cyclobenzaprine hydrochloride 10 mg oral tablet (20 sources)Muscle RelaxantStart: 92-06-4003cblv 1 tablet by mouth three times daily as needed for muscle spasmscyclobenzaprine (Flexeril) 10 mg tablet Indications: muscle spasm Take 1 tablet (10 mg) by mouth 3 times a day as needed for muscle spasms for up to 7 days. 21 tablet 06/03/2024 ActiveStart: 04-30-2024 End: 35-51-7339fqrg 1 tablet by mouth every eight hours for muscle spasms cyclobenzaprine (Flexeril) 10 mg tablet Indications: Muscle spasms of neck Take 1 tablet (10 mg) bymouth every 8 hours if needed for muscle spasms. 90 tablet 04/30/2024 ActiveStart: 04-09-2024 End: 53-99-0242vrtg 1 tablet by mouth three times daily as needed for muscle spasmscyclobenzaprine (Flexeril) 10 mg tablet Indications: muscle spasm Take 1 tablet (10 mg) by mouth 3 times a day as needed for muscle spasms for up to 7 days. 21 tablet 04/17/2024 ActiveStart: 03-21-2023 End: 47-49-6524fbcl 1 tablet by mouth three times daily as needed for muscle spasmsCyclobenzaprine 10 mg tablet Discontinued 10 MG PO Three times daily as needed for Muscle Spasm 10 0 March 20, 2023 11:00pm May 07, 2023 8:22am0.4 ml enoxaparin sodium 100 mg/ml prefilled syringe (1 source)Low Molecular Weight HeparinStart: 26-39-0058nyqrdf 40 mg by subcutaneous injection every twenty-four [...] 0.2 mg/ml prefilled syringe (3 sources)Opioid AgonistStart: 62-52-8140tgro 0.2 mg intravenously every four hours as [...] with radiology test) (20 sources)Start: 11-02-2023 End: 43-22-8629lp contrast (will be provided with radiology test) [...] Each 0 11/02/2023 11/03/2023 ActiveStart: 11-02-2023 End: 39-53-8508uwxdqa 1 dose intravenously once, then inject 1 [...] Each 0 11/02/2023 11/02/2023 ExpiredStart: 09-20-2022 End: 54-67-1697szeluj 1 dose intravenously onceiv contrast (will be [...] Each 0 09/20/2022 09/21/2022 ActiveStart: 10-30-2021 End: 11-23-9209vsjibb 1 dose intravenously once, then inject 1 [...] Each 0 10/30/2021 10/30/2021 ActiveStart: 10-30-2021 End: 10-99-7968fi contrast (will be provided with radiology test) [...] 1 Each 0 10/30/2021 10/31/2021 Active Start: 99-56-8577wu contrast (will be provided with radiology test) [...] administration guidelines link. 1 Each 03/15/2020 ActiveStart: 32-01-6286st contrast (will be provided with radiology test) [...] day ActiveMultivitamin (Multiple Vitamins) tablet (20 sources)Start: 41-68-9669gbyj 1 tablet by mouth once dailyMultivitamin (Multiple Vitamins) tablet Active 1 TAB PO Daily August 02, 2023 12:00am Complies with drug therapyStart: 65-03-3730yccj 1 tablet by mouth once daily Start: 95-56-8797jkuk 1 tablet by mouth once dailyMultivitamin (Multiple Vitamins) tablet Active 1 TAB PO Daily August 02, 2023 1:00am Complies with drug therapyStart: 19-32-1240epcj 1 tablet by mouth once dailyMultivitamin (Multiple Vitamins) tablet Active 1 TAB PO Daily August 02, 2023 1:00am Start: 82-60-4150hdpt 1 tablet by mouth once dailyMultivitamin (Multiple [...] by mouth once daily.Naloxone (1 source)Opioid AntagonistStart: 85-77-7410sgxSWMOLU hydrochloride 10 mg oral tablet (3 sources)Opioid AgonistStart: 30-38-9816ltth 1 tablet by mouth every four hours as neededStart: 18-67-8024tnyp 1 tablet by mouth every four hours as neededStart: 08-02-7876iafm 1 tablet by mouth every four hours as bvzxax16 mg, oral, Every 4 hours PRN, pain severe (7-10), first line, Starting on Sun04/09/24 at 1857, Phase II/On Unit, If ordered PRN for pain, nurse is permitted to administer this medication for higher pain scores based on patient preference? Yespantoprazole 40 mg delayed release oral tablet (16 sources)Proton Pump InhibitorStart: 21-56-8187geey 1 tablet by mouth twice dailyPantoprazole 40 mg tablet,delayed release (DR/EC) Active 40 MG PO Twice daily 60 30 11 November 17, 2024 1:10pm Complies with drug therapyStart: 11-05-2024 End: 81-52-7340yvns 1 tablet by mouth once daily at bedtimePantoprazole 40 mg tablet,delayed release (DR/EC) Discontinued 40 MG PO Daily at bedtime 56 56 3 November 04, 2024 11:00pm November 17, 2024 1:16pmpolyethylene glycol 3350 30673 mg powder for oral solution (1 source)Osmotic LaxativeStart: g, oral, 2 times daily, First dose on Sun04/09/24 at 2100, Phase II/On Unit, Bowel Regimen - for prevention of constipation.tiZANidine 4 mg oral capsule (20 sources)Central alpha-2 Adrenergic AgonistStart: 02-90-1183fkfg 1 capsule by mouth twice daily as neededTizanidine 4 mg capsule Active 4 MG PO Twice daily as needed February 18, 2025 11:00pm Complies with drug therapyStart: 08-29-2022 End: 62-07-7106hlqi 1 tablet by mouth once daily at bedtimeTizanidine (Zanaflex) 4 mg tablet Discontinued 4 MG PO Daily at bedtime August 02, 2023 12:00am December 03, 2023 9:58am FreeTextSi tablet as needed Orally at bedtime; Note: Source Status: Taking; Provider: Satish Howardtart: 04-17-2022 End: 69-40-9811mbdr 1 capsule by mouth twice daily as neededTizanidine 4 mg capsule Discontinued 4 MG PO Twice daily as needed for muscle spasticity 14 0 April 16, 2022 11:00pm July 17, 2022 8:02amStart: 04-06-2022 End: 54-73-6323pwho 2 tablets by mouth at bedtimeTizanidine 4 mg tablet Discontinued 8 MG PO Bedtime April 05, 2022 11:00pm August 02, 2023 1 2:50pmStart: 04-06-2022 End: 45-49-7836mjsl 8 mg by mouth at bedtimeTizanidine Discontinued 8 MG PO Bedtime April 06, 2022 12:00am August 02, 2023 1:50pmStart: 04-06-2022 take 1 tablet by mouth every twenty-four hours as neededtiZANidine (ZANAFLEX) 4 mg tablet Take 4 mg by mouth at bedtime as needed. 0 08/29/2022 ActiveStart: 05-28-1808bvEMLmdwfn HCl - 4 MG Oral Tablet Quantity: [...] Central Nervous System Stimulant, MethylxanthineStart: 08-31-2022 End: 42-18-3807qdyp 1 tablet by mouth every four to [...] oral tablet (20 sources)Opioid AgonistStart: 05-07-2023 End: 82-10-8754bldh 1 tablet by mouth twice daily as needed for pain Acetaminophen-Codeine 300-30 mg tablet Discontinued 1 TAB PO Twice daily as needed for Pain May 07, 2023 12:00am August 02, 2023 12:44pm acetaZOLAMIDE 250 mg oral tablet (20 sources)Carbonic Anhydrase InhibitorStart: 08-31-2022 End: 72-43-1374wrpo 1 tablet by mouth once daily in the morning, then take 2 tablets by mouth at bedtimeacetaZOLAMIDE (DIAMOX) 250 mg tablet take 1 tablet by mouth every morning and AFTERNOON and 2 at bedtime as directed 0 08/31/2022 Active End: 56-27-6320rlbn 1 tablet by mouth every twenty-four hoursacetaZOLAMIDE (Diamox) 250 mg tablet Take by mouth once every 24 hours. 04/10/2024 Discontinued (Therapy completed)take 1 tablet by mouth every twelve hours acetaZOLAMIDE 125 MG 1 tablet Orally Twice a day ActiveComment on above:take 1 tablet by mouth every morning and AFTERNOON and 2 at bedtime as directed [id number] 200 actuat albuterol 0.09 mg/actuat metered dose inhaler (20 sources)beta2-Adrenergic AgonistStart: 09-20-2024 End: 06-24-6181Lyzwrjsgm Sulfate 90 mcg/actuation HFA aerosol inhaler Discontinued 1 INH INHALATION Every 4 hours as needed for shortness of breath September 19, 2024 11:00pm October 06, 2024 1:05pmStart: 55-47-6670jusl 2 puff(s) by inhalation every four hoursalbuterol HFA 90 mcg/act inhaler Inhale 2 puffs every 4 (four) hours if needed 04/10/2024 ActiveStart: 93-75-9695tccp 2 puff(s) by inhalation every four hours for wheezingalbuterol 90 mcg/actuation inhaler Indications: Cervical radiculopathy Inhale 2 puffs every 4 hoursif needed for wheezing or shortness of breath. 18 g 11 04/10/2024 ActiveStart: 04-09-2024 Start: 08-02-2023 End: 94-63-6681npur 1 puff(s) by inhalation every four hours as neededAlbuterol Sulfate 90 mcg/actuation HFA aerosol inhaler Discontinued 1 PUFF INHALATION Every 4 hoursFebr2023 12:00am August 02, 2023 12:45pm FreeTextSi puff as needed Inhalation every 4 hrs; Note: Source Status: Start; Refills: 1; Provider: Darling Camara RStart: 07-02-2023 End: 27-18-9011kofi 2 puff(s) by inhalation every four hoursalbuterol 90 mcg/actuation inhaler Inhale 2 puffs every 4 hours if needed. 07/02/2023 04/10/2024 Discontinued (Therapy completed)Start: 85-27-9038kbwo 2 puff(s) by inhalation every four hoursalbuterol HFA 90 mcg/act inhaler Inhale 2 puffs every 4 (four) hours if needed 0 07/02/2023 ActiveStart: 18-20-0721lbtp 1 puff(s) by inhalation every four hours as neededAlbuterol Sulfate HFA 108 (90 Base) MCG/ACT 1 puff as needed Inhalation every 4 hrs Jun, ActiveALPRAZolam 0.25 mg oral tablet (20 sources)BenzodiazepineStart: 01-31-2024 End: 43-22-1670wact 1 tablet by mouth once dailyAlprazolam (Xanax) 0.25 mg tablet Discontinued 0.25 MG PO Daily 30 0 January 30, 2024 11:00pm April 01, 2024 10:01am Anxiety and depression Anxiety disorder, unspecified Depression, unspecifiedStart: 28-74-5703iolj 1 tablet by mouth once daily as neededALPRAZolam (XANAX) 0.25 mg tablet Take 0.25 mg by mouth once daily as needed. 0 09/12/2021 Activetake 1 tablet by mouth every twelve hoursALPRAZolam 0.25 MG 1 tablet Orally Twice a day prn ActiveComment on above:Take 0.25 mg by mouth once daily as needed.amLODIPine 10 mg oral tablet (20 sources)Dihydropyridine Calcium Channel BlockerStart: 02-01-2024 End: 93-89-5730mdcy 1 tablet by mouth once dailyAmlodipine 10 mg tablet Discontinued 10 MG PO Daily April 01, 2024 10:02am September 29, 2024 2:11pmStart: 11-29-2023 End: 21-00-2708kaqb 1 tablet by mouth once dailyAmlodipine 10 mg tablet Discontinued 0 .ROUTE .COMPLEX 90 0 November 29, 2023 11:15am February 01, 2024 10:05am take 1 tablet orally dailyStart: 11-29-2023 End: 06-30-0748nqqj 1 tablet by mouth once dailyAmlodipine Discontinued 0 .ROUTE .COMPLEX 90 November 29, 2023 12:15pm February 01, 2024 11:05am take1 tablet orally dailyStart: 00-33-4262xtzs 1 tablet by mouth once dailyAmlodipine Active 0 .ROUTE .COMPLEX 90 November 29, 2023 12:15pm take 1 tablet orally dailyStart: 09-05-2023 End: 39-30-4801oyur 1 tablet by mouth once dailyAmlodipine 10 mg tablet Discontinued 10 MG PO Daily 30 30 2 September 04, 2023 11:00pm November 29, 2023 11:15amStart: 03-15-2023 End: 19-23-3628ultt 1 tablet by mouth once dailyAmlodipine 5 mg tablet Discontinued 5 MG PO Daily August 02, 2023 12:00am September 05, 2023 1:21pm FreeTextSi tablet Orally Once a day; Note: Source Status: Continue; Provider: Darling Camara Ramoxicillin 875 mg / clavulanate 125 mg oral tablet (20 sources)Penicillin-class AntibacterialStart: 09-20-2024 End: 46-56-8709bjql 1 tablet by mouth twice dailyAmoxicillin-Pot Clavulanate 875-125 mg tablet Discontinued 1 TAB PO Twice daily 9 September 191:00pm October 06, 2024 1:05pmStart: 02-26-2023 End: 87-73-6271yekl 1 tablet by mouth twice dailyAmoxicillin-Pot Clavulanate 875-125 mg tablet Discontinued 1 TAB PO Twice daily February 25, 2023 11:00pm May 07, 2023 8:06wzElo2624-Asv Pwi-Ugzf-Qbo-Asb-C (11 sources)Osmotic Laxative, Vitamin CStart: 10-10-2024 End: 62-05-1063Vce8738-Sod Wxm-Knpe-Ypv-Asb-C (Plenvu) 140-9-5.2 gram powder in packet, sequential Discontinued 0 PO .COMPLEX 3 1 October 09, 2024 11:00pm October 24, 2024 10:48am POStart: 10-10-2024 End: 71-51-3339Qym9661-Sod Orb-Vczr-Goi-Asb-C (Plenvu) 140-9-5.2 gram powder in packet, sequential Discontinued 0 PO .COMPLEX 3 October 10, 2024 12:00am October 24, 2024 11:48am POStart: 19-34-8571Osd0578-Sod Exj-Crjp-Zui-Asb-C (Plenvu) 140-9-5.2 gram powder in packet, sequential Active 0 PO .COMPLEX 3 October 10, 2024 12:00am POatorvastatin 10 mg oral tablet (20 sources)HMG-CoA Reductase InhibitorStart: 81-22-4414pdrp 1 tablet by mouth once dailyatorvastatin (LIPITOR) 10 mg tablet Take 10 mg by mouth once daily. 0 09/28/2021 ActiveStart: 03-20-2013Gbiywexszowk Calcium 10 MG Oral Tablet Quantity: 90 Refills: 0 Ordered: 28-Sep-2021 DO Start : 28-Sep-2021 Active Comment on above:Take 10 mg by mouth once daily.azithromycin 250 mg oral tablet (20 sources)Macrolide AntimicrobialStart: 11-19-2024 End: 08-42-5673Ohzvgfdanykl (Zithromax Z-Slim) 250 mg tablet Discontinued 0 PO .COMPLEX 6 November 18, 2024 11:00pm February 19, 2025 10:11am For 250 mg dose pack: take 500 mg today (day 1), then 250 mg for 4 days (days 2-5) POStart: 09-20-2024 End: 60-03-1970pxuh 2 tablets by mouth once dailyAzithromycin 250 mg tablet Discontinued 250 MG PO Daily 4 4 0 September 19, 2024 11:00pm October 06, 2024 1:06pm start on day 2 of therapyStart: 20-61-8791Hzvxrlnpa Z-Slim 250 MG as directed Orally as directed 1 pack 15 Jun, 2024 ActiveStart: 72-34-1451Bgnqvpyvw Z-Slim 250 MG as directed Orally Nov, ActiveStart: 11-02-2022 End: 34-21-1886jabwpwikgfvz (ZITHROMAX) 250 mg tablet Take by mouth as directed. TAKE 2 TABLETS BY MOUTH TODAY, THEN TAKE 1 TABLET DAILY FOR 4 DAYS 11/02/2022 11/02/2023 Discontinued (Discontinued by Patient)Start: 00-83-8382Mupzchrju Z- Slim 250 MG as directed Orally Jul, ActiveStart: 95-26-4809Vgauqggkn Z- Slim 250 MG as directed Orally Feb, ActiveStart: 09-09-4168Umwkkmjqj Z- Slim 250 MG 2 tablet on the first day, then 1 tablet daily for 4 days Orally Once a day for 5 day(s) Nov, Not-TakingStart: 90-31-6005Eimkfrpix Z-Slim 250 MG 2 tablet on the first day, then 1 tablet daily for 4 days Orally Once a day 1 3 Jun, 2021 Activebetamethasone 0.5 mg/ml / clotrimazole 10 mg/ml topical cream (20 sources)Azole Antifungal, CorticosteroidStart: 03-08-2023 End: 32-42-7448Sfmmfupgokag-Betamethasone 1-0.05 % cream Discontinued 1 APPLIC TOPICAL Twice daily August 02, 2023 12:00am August 02, 2023 12:47pm FreeTextSi application Externally Twice a day; Note: Source Status: Not- Taking\PRN; Refills: 1; Qty: 45 grams; Provider: Darling Leeulinumtoxina 200 unt injection (16 sources)Acetylcholine Release InhibitorStart: 07-20-2023 End: 00-28-8963Vkxih 200u vial IJ Soln 200 units injection Indications: Spasmodic Torticollis Inject 400 units into neck muscles every 90 days 2 each 3 07/20/2023 01/08/2025 Discontinuedbrexpiprazole 1 mg oral tablet (20 sources)Atypical AntipsychoticStart: 08-02-2023 End: 31-70-7763skza 0.5 mg by mouth once dailyBrexpiprazole Discontinued 0.5 MG PO Daily August 02, 2023 2:09pm October 18, 2023 8:55amStart: 08-02-2023 End: 87-72-4218ujfp 1 tablet by mouth once dailyBrexpiprazole 1 mg tablet Discontinued 0.5 MG PO Daily August 02, 2023 1:09pm October 18, 2023 7:55am Start: 58-91-1614aegq 1 tablet by mouth every twenty-four hoursRexulti 1 MG 1 tablet Orally Once a day samples provided May, ActiveStart: 05-31-2023 take 1 tablet by mouth every twenty-four hoursRexulti 0.5 MG 1 tablet Orally Once a day for 7 days samples provided May, Activebupivacaine hydrochloride 5 mg/ml injectable solution (18 sources)Amide Local AnestheticStart: 03-24-2025 End: 68-83-3861nmmdabasgjk (Marcaine) 0.5 % injection 5 mgStart: 03-24-2025 End: 95-08-8998hrlcdstwebk (Marcaine) 0.5 % injection 5 mgStart: 03-24-2025 End: mg, Injection, Once, On Sun03/24/25 at 1415, For 1 doseStart: 03-24-2025 End: mg, Injection, Once, On Sun03/24/25 at 1415, For 1 doseStart: 02-17-2025 End: 88-86-7678rbzwmemvapu (Marcaine) 0.5 % injection 5 mgStart: 02-17-2025 End: mg, Injection, Once, On Sun02/17/25 at 1345, For 1 doseStart: 12-30-2024 End: 67-07-1409gvvqqxguraw (Marcaine) 0.5 % injection 5 mgStart: 12-30-2024 End: mg, Injection, Once, On Sun12/30/24 at 1615, For 1 doseStart: 11-19-2024 End: 14-51-9759dyhcnoqjjcx (Marcaine) 0.5 % injection 5 mgStart: 11-19-2024 End: mg, Injection, Once, On Sun11/19/24 at 1315, For 1 doseStart: 09-24-2024 End: 26-29-7020eydasrcqhnu (Marcaine) 0.5 % injection 5 mgStart: 09-24-2024 End: 55 mg (1 mL), Injection, Once, On Sun09/24/24 at 1045, For 1 dose Start: 08-05-2024 End: 96-29-9095sffyilhozuh (Marcaine) 0.5 % injection 5 mgStart: 08-05-2024 End: 55 mg (1 mL), Injection, Once, On Sun08/05/24 at 1545, For 1 dose Start: 07-03-2024 End: 05-08-2864cqswidxaafe (Marcaine) 0.5 % injection 5 mgStart: 07-03-2024 End: mg (1 mL), Injection, Once, On Sun07/03/24 at 1045, For 1 dose Start: 05-22-2024 End: 13-03-4038mdfxrtjaene (Marcaine) 0.5 % injection 5 mgStart: 05-22-2024 End: mg (1 mL), Injection, Once, On Sun05/22/24 at 1330, For 1 dose 12 hr buPROPion hydrochloride 150 mg extended release oral tablet (10 sources)AminoketoneStart: 02-28-2019 End: 28-25-0688hizw 1 tablet by mouth twice dailybuPROPion SR (WELLBUTRIN SR) 150 mg 12 hr tablet Take 1 tablet by mouth twice daily. 60 tablet 2 02/28/2019 10/17/2022 DiscontinuedComment on above:Take 1 tablet by mouth twice daily. dexamethasone phosphate 4 mg/ml injectable solution (20 sources)CorticosteroidStart: 03-24-2025 End: 93-30-3699ogjLKOLYxnsfc sod phos (Decadron) injection 4 mgStart: 03-24-2025 End: mg (1 mL), Injection, Once, On Sun03/24/25 at 1415, For 1 dose Start: 02-17-2025 End: 54-63-5247qxrWZSUZrmkwh sod phos (Decadron) injection 4 mgStart: 02-17-2025 End: mg (1 mL), Injection, Once, On Sun02/17/25 at 1345, For 1 dose Start: 12-30-2024 End: 23-73-7209ljwXDQMNahnhm sod phos (Decadron) injection 4 mgStart: 12-30-2024 End: 54 mg (1 mL), Injection, Once, On Sun12/30/24 at 1615, For 1 dose Start: 11-19-2024 End: 10-78-7718pddCITMIauyuh sod phos (Decadron) injection 4 mgStart: 11-19-2024 End: mg (1 mL), Injection, Once, On Sun11/19/24 at 1315, For 1 dose Start: 09-24-2024 End: 38-02-7566gmlSFNNIvjuzl sod phos (Decadron) injection 4 mgStart: 09-24-2024 End: 54 mg (1 mL), Injection, Once, On Sun09/24/24 at 1045, For 1 dose Start: 08-05-2024 End: 53-84-9733cefLPFTXdgcpu sod phos (Decadron) injection 4 mgStart: 08-05-2024 End: 54 mg (1 mL), Injection, Once, On Sun08/05/24 at 1545, For 1 dose Start: 07-03-2024 End: 52-54-2420oduRNQLBjagnv sod phos (Decadron) injection 4 mgStart: 07-03-2024 End: 54 mg (1 mL), Injection, Once, On Sun07/03/24 at 1045, For 1 dose Start: 05-22-2024 End: 48-68-3212pqdFUKOGbogwe (Decadron) injection 4 mgStart: 05-22-2024 End: 07-78-6870moqgzz 4 mg by intramuscular injection once4 mg, Intramuscular, Once, On Sun05/22/24 at 1330, For 1 doseStart: 04-09-2024 End: 10-24-60420 mg, intravenous, Once, On Sun04/09/24 at 2215, For 1 dose Start: 71-36-8071Gzrnvjblnffrr Active MG PO December 03, 2023 12:00amStart: 12-03-2023 End: 23-03-1389Bmmsqsvqbhgyg 2 mg tablet Discontinued MG PO December 02, 2023 11:00pm April 28, 2024 9:43amStart: 04-74-3503xawAWLOOsfkel (Decadron) 2 MG tablet Indications: Cervical radiculopathy , Cervical stenosis of spinal canal , Occipital neuralgia of left side 2mg 3 pills po X3 days,2 pills po daily X3 days , then 1 pill po daily X3 days then stop 9 days 18 pills 18 tablet 0 06/14/2023 Activedoxycycline hyclate 100 mg oral capsule (15 sources)Tetracycline-class DrugStart: 11-25-2024 End: 58-73-1603kcby 1 capsule by mouth twice dailyDoxycycline Hyclate 100 mg capsule Discontinued 100 MG PO Twice daily 20 10 0 2024 11:00pm February 19, 2025 10:11amStart: 11-05-2018 End: 22-94-3830zqsa 1 capsule by mouth every twelve hoursdoxycycline [...] mg/ml auto-injector (5 sources)PCSK9 InhibitorStart: 10-27-2024 End: 89-80-3725qfqtqm 140 mg by subcutaneous injection every other week Evolocumab (Repatha Sureclick) 140 mg/mL pen injector Discontinued 140 MG SUBCUT EVERY 2 WEEKS 6 90October 26, 2024 11:00pm November 03, 2024 8:56amEvolocumab (Repatha Sureclick) 140 mg/mL pen injector (3 sources)Start: 10-27-2024 End: 91-57-0116mwugyh 140 mg by subcutaneous injection every other week Evolocumab (damasonae Perrysashageorge) 140 mg/mL pen injector Discontinued 140 MG SUBCUT EVERY 2 WEEKS 6 90May 2024 12:00am November 03, 2024 9:56amezetimibe 10 mg oral tablet (20 sources)Dietary Cholesterol Absorption InhibitorStart: 11-05-2023 End: 14-77-0682zbql 1 tablet by mouth once dailyEzetimibe 10 mg tablet Discontinued 0 .ROUTE .COMPLEX 90 November 05, 2023 9:42am April 28, 2024 9:44am take 1 tablet by mouth once dailyStart: 09-05-2023 End: 23-67-1875Qusvyvqrj Discontinued MG PO September 05, 2023 12:00am September 05, 2023 1:34pmStart: 06-08-2023 End: 63-68-6409krpk 1 tablet by mouth once dailyEzetimibe (Zetia) 10 mg tablet Discontinued 10 MG PO Daily August 26, 2024 11:00pm August 27, 2024 3:02pm Start: 05-15-2023 End: 13-39-3895rmxa 1 tablet by mouth every weekEzetimibe 10 mg tablet Discontinued MG PO August 02, 2023 12:00am August 02, 2023 12:47pm Fr eeTextSi tablet Orally 2 days per week; Note: Source Status: Not-Taking\PRN; Provider: Kamla Vyas WStart: 49-96-3243sxon 1 tablet by mouth every twenty- four hoursEzetimibe 10 MG 1 tablet Orally Once a day for 90 days Apr, Activegabapentin 100 mg oral capsule (20 sources)Anti-epileptic AgentStart: 08-02-2023 End: 93-10-8225ofsw 1 capsule by mouth once dailyGabapentin 100 mg capsule Discontinued 100 MG PO Daily August 02, 2023 12:00am August 02, 2023 12:47pm FreeTextSi capsule Orally Once a day; Note: Source Status: Not- Taking\PRN; Provider:Darling Camara ( )Start: 04-16-2023 End: 83-03-1363qzsd 1 capsule by mouth three times dailyGabapentin 300 mg capsule Discontinued 300 MG PO Three times daily May 07, 2023 12:00am August 02, 2023 12:47pmStart: 02-27-2019 End: 34-82-8913ifwk 1 capsule by mouth three times dailygabapentin [...] injection 30 mL (1 source)Start: 12-13-2023 End: 68-89-6345tcdivq 30 mL intravenously once30 mL, intravenous, Once in imaging, Starting on [facility] 12/13/23 at 0817, For 1 dose, Administer undiluted as rapid I.V. bolus injectionhydrOXYzine hydrochloride 25 mg oral tablet (20 sources)AntihistamineStart: 05-26-2022 End: 48-88-7983xymp 1-2 tablets by mouth at bedtime as neededHydroxyzine Hcl 25 mg tablet Discontinued MG PO August 02, 2023 12:00am September 05, 2023 12:37pm FreeTextSi-2 tablets Orally HS as needed; Note: Source Status: Taking; Provider: Darling Camara RComment on above:take 1 to 2 tablets by mouth at bedtime if neededibuprofen 800 mg oral tablet (20 sources)Nonsteroidal Anti-inflammatory DrugStart: 08-02-2023 End: 28-02-0363utvg 1 tablet by mouth three times daily as needed for pain Ibuprofen 800 mg tablet Discontinued 800 MG PO Three times daily as needed for pain September 05, 2023 12:35pm October 06, 2024 1:06pm FreeTextSi tablet with food or milk as needed Orally Three times a day; Note: Source Status: TakingPRN; Provider: Darling Camara ( )Start: 04-17-2022 End: 02-60-1928vnnx 1 tablet by mouth every eight hours [...] capsule (20 sources)Nonsteroidal Anti-inflammatory DrugStart: 08-02-2023 End: 97-16-8842skxh 1 capsule by mouth once daily at mealtimeIndomethacin 75 mg capsule, extended release Discontinued 75 MG PO Daily August 02, 2023 12:00am August 02, 2023 12:48pm FreeTextSi capsule with food Orally Once a day; Note: Source Status: Not-Taking\PRNprn; Provider: Darling Camara ( )Start: 07-17-2022 End: 78-63-9580nicqgykjhqqy (INDOCIN) 25 mg capsule Indomethacin Active 25 MG PO Daily July 17, 2022 1:00am 07/17/2022 11/02/2023 Discontinued (Discontinued by Patient)Start: 07-17-2022 End: 65-69-8469hjff 1 capsule by mouth once dailyIndomethacin 25 [...] ActiveKetorolac (20 sources)Nonsteroidal Anti-inflammatory Drug, Cyclooxygenase InhibitorStart: 83-51-1663Hguzgam per 15 mg Jan, 2 mLlisinopril 10 mg oral tablet (20 sources)Angiotensin Converting Enzyme InhibitorStart: 10-18-2023 End: 54-31-6773gvpw 1 tablet by mouth once dailyLisinopril 10 mg tablet Discontinued 10 MG PO Daily 90 90 1 April 01, 2024 10:02am September 29, 2024 2:11pmStart: 09-05-2023 End: 84-72-5974qrdo 1 tablet by mouth once dailyLisinopril 5 mg tablet Discontinued 5 MG PO Daily 30 30 2 September 04, 2023 11:00pm October 18, 2023 8:30am take 2 tablets by mouth once dailylisinopril 5 mg tablet Take 2 tablets (10 mg) by mouth once daily. Activemeclizine hydrochloride 25 mg oral tablet (20 sources)AntiemeticStart: 04-29-2018 End: 44-54-7458pfgo 1 tablet by mouth three times daily as needed for dizziness Meclizine 25 mg tablet Discontinued 25 MG PO Three times daily as needed for dizziness 30 0 April 29, 2018 12:00am April 06, 2022 3:26pm methocarbamol 750 mg oral tablet (20 sources)Muscle RelaxantStart: 05-21-2024 End: 01-25-9248pybg 1 tablet by mouth once daily at bedtimeMethocarbamol 750 mg tablet Discontinued 750 MG PO Daily at bedtime July 03, 2024 12:00am September 20, 2024 10:05amStart: 12-03-2023 End: 51-78-5610Fjvpopqigikwd 500 mg tablet Discontinued 500 MG PO December 03, 2023 9:58am April 28, 2024 9:45amStart: 12-03-2023 End: 93-76-8582Ckdypeaesqihx Discontinued MG PO December 03, 2023 12:00am December 03, 2023 10:59ammethylPREDNISolone 4 mg oral tablet (20 sources)CorticosteroidStart: 11-25-2024 End: 66-14-3982Ijdgdecxopezosxjhb 4 mg tablets,dose pack Discontinued 0 PO per package directions 2024 11:00pm February 19, 2025 10:11am PO PER PKG DIRStart: 11-19-2024 End: 04-06-2980fusu 1 tablet by mouth onceMethylprednisolone (Medrol (Slim)) 4 mg tablets,dose pack Discontinued 0 PO per package directions November 18, 2024 11:00pm February 19, 2025 10:11am PO PER PKG DIR for 6 daysStart: 08-02-2023 End: 33-17-4235Poeceturtuqjtdnbvt 4 mg tablets,dose pack Discontinued MG PO As Directed August 02, 2023 12:00am August 02, 2023 12:48pm FreeTextSig: as directed Orally as directed; Note: Source Status: Start1 pack; Refills: 0; Provider: Darling Camara RStart: 08-02-2023 End: 70-14-7510Nfykkfeirecsgdixcj Discontinued MG PO As Directed August 02, 2023 1:00am August 02, 2023 1:48pm FreeTextSig: as directed Orally as directed; Note: Source Status: Start1 pack; Refills: 0; Provider: Darling Driver Start: 08-02-2023 End: 12-91-7894Nrohxqzjuggtlqtdvc Discontinued MG PO As Directed August 02, 2023 12:00am August 02, 2023 12:48pm FreeTextSig: as directed Orally as directed; Note: Source Status: Start1 pack; Refills: 0; Provider: Darling Driver Start: 59-69-9924ivblxpZRMJHIGudchs 4 MG as directed Orally as directed 1 pack Jun, ActiveStart: 49-84-6606Cugbfx 4 MG as directed Orally Feb, ActiveStart: 94-67-3342hmczekPWCXQRZglezb 4 MG as directed Orally Nov, Not-TakingStart: 34-85-8079virmhhHWFVYHIgebmc 4 MG as directed Orally as directed Jun, Activemirtazapine 15 mg oral tablet (20 sources)Start: 09-01-2022 End: 91-22-4302qcqv 0.5 tablet by mouth once daily at bedtime as needed Mirtazapine 15 mg tablet Discontinued MG PO Daily at bedtime as needed September 05, 2023 12:35pm 2023 9:19am FreeTextSi/2 tablet at bedtime Orally Once a day; Note: Source Status: Taking; Provider: Darling Camara ( )Start: 09-01-2022 End: 38-24-4142rbcf 1 tablet by mouth once daily at bedtime as neededMirtazapine 15 mg tablet Discontinued 15 MG PO Daily at bedtime as needed for restless leg(s) October 29, 2023 9:18am October 06, 2024 1:06pmStart: 07-17-2022 End: 68-92-1223kqjl 1 tablet by mouth at bedtime as neededMirtazapine 7.5 mg Tablet Discontinued 7.5 MG PO Bedtime as needed for Insomnia July 17, 2022 12:00am August 02, 2023 12:49pmComment on above:Take by mouth daily at bedtime.montelukast 10 mg oral tablet (20 sources)Leukotriene Receptor AntagonistStart: 07-17-2022 End: 77-87-4216ekhc 1 tablet by mouth once dailyMontelukast (Singulair) 10 mg tablet Discontinued 10 MG PO Daily August 02, 2023 12:00am August 02, 2023 1:10pm FreeTextSi tablet Orally Once a day; Note: Source Status: Taking; Provider:Darling Camara ( )Comment on above:Take 10 mg by mouth daily at bedtime.naproxen 500 mg oral tablet (20 sources)Nonsteroidal Anti-inflammatory DrugStart: 12-10-2017 End: 41-64-6862gquj 1 tablet by mouth twice daily at mealtimeNaproxen 500 mg tablet Discontinued 500 MG PO Twice daily December 09, 2017 11:00pm April 29, 2018 2:12pm administer with food or milk24 hr nicotine 0.875 mg/hr transdermal system (12 sources)Cholinergic Nicotinic AgonistStart: 08-14-2023 End: 23-17-7789vcchg 1 dose transdermal route every twenty-four hoursnicotine [...] (20 sources)Angiotensin 2 Receptor BlockerStart: 05-07-2023 End: 45-19-7104Pmlgxyeses 20 mg tablet Discontinued MG May 07, 2023 12:00am August 02, 2023 12:50pmStart: 05-07-2023 End: 75-03-5156Vwryriifwv Discontinued MG TABLET May 07, 2023 1:00am August 02, 2023 1:50pmondansetron 4 mg disintegrating oral tablet (14 sources)Serotonin-3 Receptor AntagonistStart: 10-06-2024 End: 22-39-9383abbd 1 tablet by mouth every eight hours as needed for nausea and vomitingOndansetron 4 mg tablet,disintegrating Discontinued 4 MG PO Every 8 hours as needed for nausea and vomiting 9 3 0 October 05, 2024 11:00pm October 24, 2024 10:48amStart: 30-27-1674jkbp 1 tablet by mouth every eight hours as needed ondansetron (Zofran) tablet 4 mgoxygen (O2) therapy (1 source)Start: 04-09-2024 End: 24-83-1697rkuptiasnx, Continuous - Inhalation, First dose on Sun04/09/24 at 1715, Recovery (only), Device: Nasal Cannula, Rate in liters per minute: Other, Custom Value: 1-6 LPM, Keep O2 Sat Above: 92%pravastatin sodium 40 mg oral tablet (20 sources)HMG-CoA Reductase InhibitorStart: 11-05-2023 End: 12-72-1648kxhc 1 tablet by mouth once dailyPravastatin 40 mg tablet Discontinued 0 .ROUTE .COMPLEX 90 1 August 27, 2024 3:02pm October 06, 2024 1:06pm take 1 tablet by mouth once dailyStart: 07-06-2023 End: 67-57-1721fejp 1 tablet by mouth once dailyPravastatin 40 mg tablet Discontinued 40 MG PO Daily October 28, 2023 11:00pm November 05, 2023 9:42amStart: 63-11-1439akvv 1 tablet by mouth every twenty-four hoursPravastatin Sodium 40 MG 1 tablet Orally Once a day for 90 days Apr, ActivepredniSONE 10 mg oral tablet (20 sources)Start: 03-21-2023 End: 35-74-1705Wygjsfcrnr 10 mg tablet Discontinued 60 MG PO Daily 30 March 20, 2023 11:00pm May 07, 2023 8:24am administer with food or milkStart: 03-21-2023 End: 23-18-8011umhf 60 mg by mouth once daily at mealtimePrednisone Discontinued 60 MG PO Daily March 21, 2023 12:00am May 07, 2023 9:24am admin ister with food or milkStart: 04-06-2022 End: 62-18-8820begu 2 tablets by mouth once daily at mealtimePrednisone 20 mg tablet Discontinued 40 MG PO Daily April 05, 2022 11:00pm July 17, 2022 8:01am administer with food or milkStart: 04-06-2022 End: 59-08-3679imsn 40 mg by mouth once daily at mealtimePrednisone Discontinued 40 MG PO Daily April 06, 2022 12:00am July 17, 2022 9:01am admin ister with food or milkpregabalin 50 mg oral capsule (20 sources)Start: 06-30-2024 End: 35-63-0135spcf 1 capsule by mouth once dailyPregabalin 50 mg capsule Discontinued 50 MG PO Daily July 03, 2024 12:00am September 20, 2024 10:05am Start: 06-30-2024 End: 74-80-3411ciga 1 capsule by mouth twice dailypregabalin (Lyrica) 50 mg capsule Indications: Status post cervical spinal fusion Take 1 capsule (50 mg) by mouth 2 times a day. 60 capsule 06/30/2024 Activepromethazine hydrochloride 25 mg oral tablet (20 sources)PhenothiazineStart: 04-29-2018 End: 85-68-9091rwro 1 tablet by mouth every six hours as needed for nausea Promethazine 25 mg Tablet Discontinued 25 MG PO Q6H as needed for Nausea September 07, 2021 11:00pm April 06, 2022 3:26pmtake 1 tablet by mouth every twelve hoursPromethazine HCl 25 MG 1 tablet as needed Orally every 12 hrs Active rimegepant 75 mg disintegrating oral tablet (20 sources)Start: 04-06-2022 End: 29-66-2818Cdwyjkqnwc (Nurtec Odt) 75 mg tablet,disintegrating Discontinued 75 MG PO Q48H April 05, 2022 11:00pm July 17, 2022 8:02amtake 1 tablet by mouth once dailyNurtec 75 MG 1 tablet on the tongue and allow to dissolve Orally Ever Other Day Activerosuvastatin calcium 5 mg oral tablet (20 sources)HMG-CoA Reductase InhibitorStart: 13-10-1407fxhp 1 tablet by mouth once dailyrosuvastatin (Crestor) 5 MG tablet Take 5 mg by mouth Daily 06/27/2023 ActiveStart: 05-31-2023 End: 80-03-6003ubkn 1 tablet by mouth every weekRosuvastatin 5 [...] topical cream (20 sources)Allylamine AntifungalStart: 12-03-2023 End: 38-29-6872Aomermofuhe Hcl 1 % cream Discontinued APPLIC TOPICAL December 02, 2023 11:00pm September 20, 2024 10:05amStart: 18-66-2937Yikmmevytqr Hcl Active APPLIC TOPICAL December 03, 2023 12:00amStart: 38-56-7193juolvnesbee (LamISIL AT) 1 % cream Indications: Tinea manuum Apply to the affected area on the hand, bid, 30 day supply 42 g 1 11/28/2023 Activetopiramate 100 mg oral tablet (1 source)take 1 tablet by mouth every twenty-four hoursTopamax 100 MG 1 tablet Orally Once a day Not-TakingToradol 30 mg/ml (20 sources)Start: 79-24-8405Xvgmulu 30 mg/ml Jun, 60 mgStart: 60-53-7121Ynqjgmj 30 mg/ml Aug, 60 mgTriamcinolone (20 sources)CorticosteroidStart: 52-18-7658DZJMHYJ - 10 mg Jan, 1.5 cc24 hr divalproex sodium 250 mg extended release oral tablet (20 sources)Mood Stabilizer, Anti-epileptic AgentStart: 74-80-7036txdn 1 tablet by mouth once dailydivalproex ER (DEPAKOTE ER) 250 mg 24 hr tablet Take 250 mg by mouth once daily. 0 09/28/2021 ActiveStart: 81-16-1324rviv 1 tablet by mouth every twenty-four hoursDivalproex Sodium ER 250 MG Oral Tablet Extended Release 24 Hour Quantity: 90 Refills: 0 Ordered: 28-Sep-2021 DO Start : 28-Sep-2021 ActiveComment on above:Take 250 mg by mouth once daily.vortioxetine 5 mg oral tablet (4 sources)Start: 09-12-2021 End: 08-65-0887iahp 1 tablet by mouth every twenty-four hoursvortioxetine (TRINTELLIX) 5 mg tablet Take by mouth every 24 hours. 09/12/2021 11/03/2024 DiscontinuedStart: 95-64-5967rsro 1 tablet by mouth every twenty-four hours Trintellix 5 MG 1 tablet Orally Once a day for 30 day(s) Samples Aug, Activezonisamide 25 mg oral capsule (9 sources)Anti-epileptic AgentStart: 10-18-2022 End: 45-43-0228ubbczwecaq (ZONEGRAN) 25 mg capsule take 1 capsule [...] (20 sources)Abdominal pain; Translations: [Unspecified abdominal pain]Onset: [id number] reactions (20 sources)Eczema; Translations: [Dermatitis, unspecified]EpisodicAnxiety disorders (20 sources)Anxiety; Translations: [Anxiety state, unspecified]Onset: 04-14-2021 Resolved: 53-43-3569VvpbxepEouuzx of brain and nervous system (20 sources)Glial tumor of brain; 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, unspecified]Onset: 10-13-2021 Resolved: 14-82-1335YgxockvNtqfad of head and neck (20 sources)Squamous cell carcinoma of head and neck; 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 of head, face and neck]Onset: 49-36-2365MqlhijaRzpehf of head and neck (20 sources)History of malignant neoplasm of head and/or neck; Translations: [Personal history of malignant neoplasm of unspecified site of lip, oral cavity, and pharynx]Onset: [id number]; other and unspecified primary (3 sources)History of squamous cell carcinoma; Translations: [Personal history of malignant neoplasm of other sites]EpisodicCardiac dysrhythmias (20 sources)Cardiac arrhythmia; Translations: [Cardiac arrhythmia, unspecified] Onset: 64-38-9578IjuftxnWvgalqjg (20 sources)Age-related nuclear cataract of right eye; Translations: [Age- related nuclear cataract, right eye]Onset: [id number] associated with dizziness or vertigo (20 sources)Lightheadedness; Translations: [Dizziness and giddiness]Onset: 20-76-7886IuxwjnxbXmwuxoadia disorders (20 sources)First degree atrioventricular block; Translations: [Atrioventricular block, first degree]Onset: 158415-68-6404XmhxxpvDgvqwpkm atherosclerosis and other heart disease (20 sources)Coronary arteriosclerosis; Translations: [Atherosclerotic heart disease of [place] coronary artery without angina pectoris]Onset: 02-26-2024 37-48-6885CdpvgpuUhtjviqse of lipid metabolism (20 sources)Hyperlipidemia; Translations: [Hyperlipidemia, unspecified]Onset: 09-19-2021 Resolved: 48-63-3553XkobeygTnkpctpcsm disorders (9 sources)Gastroesophageal reflux disease; Translations: [Gastro-esophageal reflux disease without esophagitis]84-00-5848MpazkosVrnpnvlft hypertension (20 sources)Essential hypertension; Translations: [Essential (primary) hypertension]Onset: 64-96-2038WkmlhnrQhfdi and electrolyte disorders (13 sources)Dehydration; Translations: [Dehydration]96-81-7148SnebrawqPrrqnkae (20 sources)Preglaucoma, unspecified, right eye; Translations: [Preglaucoma, unspecified]Onset: 432067-28-9431FgxhuafYfdgpiwa; including migraine (20 sources)Migraine; Translations: [Migraine, unspecified, not intractable, without status migrainosus]Onset: 35-95-4057JolnmwrMwtimdzi; including migraine (20 sources)Headache; Translations: [Headache]EpisodicLymphadenitis (1 source)Enlarged lymph nodes, unspecifiedEpisodicMalignant neoplasm without specification of site (20 sources)Primary malignant neoplasm; Translations: [Malignant (primary) neoplasm, unspecified]Onset: 396615-45-7893TlsqgccXeci disorders (3 sources)Depressive disorder; Translations: [Depressive disorder, not elsewhere classified]ChronicOsteoarthritis (20 sources)Arthritis; Translations: [Unspecified osteoarthritis, unspecified site]Onset: 922571-51-7337HrdzcbpTzhhcpslvvbr (20 sources)Senile osteoporosis; Translations: [Age-related osteoporosis without current pathological fracture]Onset: 863056-97-1036KccuadfTuoam and unspecified benign neoplasm (2 sources)Acoustic neuroma; Translations: [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Other and unspecified benign neoplasm (2 sources)Melanocytic nevus of trunk; Translations: [Melanocytic nevi of trunk] 57-96-9330QxjnwhuoZkysr and unspecified benign neoplasm (11 sources)Polyp of colon; Translations: [Polyp of colon]41-76-4481Rlqugtsn Other circulatory disease (1 source)Presence of other vascular implants and graftsChronicOther circulatory disease (4 sources)Elevated blood-pressure reading, without diagnosis of hypertension Onset: 12-26-2021 Resolved: 53-16-1334PyxletroQvpjl circulatory disease (15 sources)Elevated blood pressure; Translations: [Elevated blood-pressure reading, without diagnosis of hypertension]EpisodicOther circulatory disease (1 source)Other specified symptoms and signs involving the circulatory and respiratory systemsEpisodicOther circulatory disease (2 sources)Spider nevus; Translations: [Nevus, non-neoplastic]74-00-8146Kyftakka Other connective tissue disease (3 sources)History of cervical spine fusion; Translations: [Arthrodesis status] 15-88-1235ChemcssqTvvwl connective tissue disease (1 source)Muscle spasm of cervical muscle of neck; Translations: [Other muscle spasm]73-48-2576AyawcngqQodbn ear and sense organ disorders (16 sources)Otalgia, left ear; Translations: [Left ear pain]EpisodicOther ear and sense organ disorders (11 sources)Bilateral tinnitus; Translations: [Tinnitus, bilateral]EpisodicOther ear and sense organ disorders (1 source)Tinnitus, bilateralEpisodicOther gastrointestinal disorders (9 sources)Altered bowel function; Translations: [Change in bowel habit] 10-93-0920GuawrmauRppen gastrointestinal disorders (9 sources)Dysphagia; Translations: [Dysphagia, unspecified]08-47-9269Kakumjts Other gastrointestinal disorders (9 sources)Diarrhea; Translations: [Diarrhea, unspecified]09-22-9792Mkudxeor Other gastrointestinal disorders (6 sources)Change in bowel habit; Translations: [Other symptoms involving digestive system]50-62-0657MevdfzmsWowlz gastrointestinal disorders (6 sources)Dysphagia, unspecified; Translations: [Dysphagia, unspecified] 49-86-6895RbkocfmaGblbm hereditary and degenerative nervous system conditions (20 sources)Isolated cervical dystonia; Translations: [Spasmodic torticollis] Onset: 098744-24-7848JmpfiwtPkxlv infections; including parasitic (20 sources)Personal history of other infectious and parasitic diseases; Translations: [History of COVID-19]39-30-0826UuemguklQxspi lower respiratory disease (20 sources)Solitary nodule of lung; Translations: [Solitary pulmonary nodule] EpisodicOther lower respiratory disease (20 sources)Productive cough ; Translations: [Productive cough]Onset: 10-16-2023 32-54-4184CymyrueuGyoyx nervous system disorders (3 sources)Demyelinating disease of central nervous system; Translations: [Other demyelinating diseases of central nervous system]ChronicOther nervous system disorders (20 sources)Mass lesion of brain; Translations: [Other specified disorders of brain]Onset: 245131-34-5354SppcnmiSggoo nervous system disorders (5 sources)Disorder of brain, unspecifiedOnset: 10-24-2021 Resolved: 72-96-0028XitmjoeNbkiz nervous system disorders (2 sources)Raised intracranial pressure; Translations: [Benign intracranial hypertension]ChronicOther nervous system disorders (1 source)Benign intracranial hypertensionChronicOther nervous system disorders (1 source)Normal pressure hydrocephalus; Translations: [(Idiopathic) normal pressure hydrocephalus]ChronicOther nervous system disorders (1 source)(Idiopathic) normal pressure hydrocephalus; Translations: [NPH (normal pressure hydrocephalus) (HCC)]Onset: 51-17-6140ZjmxtpaNhumh nervous system disorders (20 sources)Brachial plexus disorder; Translations: [Brachial plexus disorders] Onset: 125440-29-1592UmmjagpDkink nervous system disorders (20 sources)Ulnar neuropathy; Translations: [Lesion of ulnar nerve, unspecified upper limb]Onset: 648317-70-3237FoxyjsfPeply nervous system disorders (1 source)Lesion of brainstem; Translations: [Disorder of brain, unspecified] 70-71-7926XlpsvllBafay nervous system disorders (4 sources)Other specified disorders of brain; Translations: [Other conditions of brain]81-27-1926NagyovkKlupy nervous system disorders (20 sources)Central pontine myelinolysis; 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]Onset: 678022-55-2709RicyxleOrgwd nervous system disorders (20 sources)Disorder of nerve root and/or plexus; Translations: [Other nerve root and plexus disorders]Onset: 161132-55-4406MylgdxqNmrxx nervous system disorders (6 sources)Finding of sensation of upper limb; Translations: [Paresthesia of skin]EpisodicOther nervous system disorders (20 sources)Paresthesia of left lower limb; Translations: [Paresthesia of skin] Onset: 848127-46-4125GfqnaqpjKdgth nervous system disorders (2 sources)Anesthesia of skinOnset: 01-30-2022 Resolved: 17-24-1412ZkcfnuctPaiot nervous system disorders (20 sources)Burning sensation; Translations: [Other disturbances of skin sensation]Onset: 912579-08-5030VpfdrxvaKmszy nervous system disorders (1 source)Other disturbances of skin sensationEpisodicOther nervous system disorders (20 sources)Impairment of balance; Translations: [Other abnormalities of gait and mobility]Onset: 092455-13-9762ZwvjbrcxCdpor nervous system disorders (6 sources)Other abnormalities of gait and mobility; Translations: [Other symptoms involving nervous and musculoskeletal systems]EpisodicOther nervous system disorders (1 source)Acute postoperative pain; Translations: [Other acute postprocedural pain]11-70-5111XhizywvkZeuvr non-epithelial cancer of skin (20 sources)Squamous cell carcinoma of skin; Translations: [Squamous cell carcinoma of skin, unspecified]82-14-9194DgdijakfQerrdvr on above:head/neckOther non-traumatic joint disorders (20 sources)Joint pain; Translations: [Pain in unspecified joint]08-02-2023 EpisodicOther non-traumatic joint disorders (1 source)Pain in unspecified jointEpisodicOther non-traumatic joint disorders (2 sources)Pain in right shoulder; Translations: [Pain in joint, shoulder region]14-78-8703EjgqfkddIpwvw nutritional; endocrine; and metabolic disorders (3 sources)Weight loss; Translations: [Loss of weight]EpisodicOther nutritional; endocrine; and metabolic disorders (3 sources)H/O: metabolic disorder; Translations: [Personal history of other endocrine, metabolic, and immunity disorders]EpisodicOther nutritional; endocrine; and metabolic disorders (8 sources)Unexplained weight loss ; Translations: [Abnormal weight loss] 46-19-9619MblwxmmhBtohd nutritional; endocrine; and metabolic disorders (3 sources)Abnormal weight loss; Translations: [Loss of weight]10-10-2024 EpisodicOther screening for suspected conditions (not mental disorders or infectious disease) (20 sources)Encounter for screening for malignant neoplasm of prostate; Translations: [Magnetic resonance imaging of brain abnormal]Onset: 09-19-2021 Resolved: 56-25-9551QkvmblzjErsbg skin disorders (20 sources)Mass of neck; Translations: [Localized swelling, mass and lump, neck]EpisodicOther skin disorders (20 sources)Vesicular eczema; 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]]Onset: 037928-00-4434FzbwcfwrNweuf skin disorders (1 source)Dyshidrosis [pompholyx]EpisodicOther skin disorders (1 source)Finding of neck region; Translations: [Localized swelling, mass and lump, neck]86-59-8260JtacwileWzljo skin disorders (2 sources)Seborrheic keratosis; Translations: [Other seborrheic keratosis] 80-78-3773RiwkvipfWulkh skin disorders (2 sources)Inflamed seborrheic keratosis; Translations: [Inflamed seborrheic keratosis]77-59-1150JifkxplxWfusv skin disorders (2 sources)Actinic keratosis; Translations: [Actinic keratosis]01-08-2025 EpisodicOther upper respiratory disease (3 sources)Other specified disorders of nose and nasal sinusesOnset: 06-29-2021 Resolved: 76-42-2148OswnupkyTdkao upper respiratory disease (4 sources)Nasal sinus problem; Translations: [Other specified disorders of nose and nasal sinuses]EpisodicOther upper respiratory infections (13 sources)Sinusitis; Translations: [Chronic sinusitis, unspecified]Onset: 06-30-2021 Resolved: 16-11-0627VdhtnhkVkplr upper respiratory infections (20 sources)Acute pharyngitis, unspecified; Translations: [Acute sinusitis] Onset: 98-62-8074ZnobmmfnTefatw media and related conditions (20 sources)Acute transudative otitis media; Translations: [Other acute nonsuppurative otitis media, left ear]Onset: 776885-73-2403Ncmvieqz Peripheral and visceral atherosclerosis (20 sources)Intermittent claudication; Translations: [Peripheral vascular disease, unspecified]Onset: 31-01-5297KveetaxIenhiqplv (except that caused by tuberculosis or sexually transmitted disease) (14 sources)Pneumonia; Translations: [Pneumonia, unspecified organism]09-20-2024 EpisodicResidual codes; unclassified (5 sources)Postprocedural state finding; Translations: [Presence of other specified functional implants]66-72-3266WvvxkdsOpomoclf codes; unclassified (20 sources)Insomnia; Translations: [Insomnia, unspecified]Onset: 12-10-2022 19-29-8833BglkmqnxDsushiki codes; unclassified (2 sources)Insomnia, unspecifiedEpisodicResidual codes; unclassified (20 sources)History of cervical discectomy; Translations: [Other specified postprocedural states]24-84-0280PuoruzkhHscfkeme codes; unclassified (4 sources)Other specified postprocedural states; Translations: [Other postprocedural status]64-08-2869PprznxtaTeygjwwl codes; unclassified (8 sources)Early satiety; Translations: [Early satiety]29-46-8154Qofzkzss Residual codes; unclassified (3 sources)Early satiety; Translations: [Early satiety]32-17-8786Ahayxgia Secondary malignancies (3 sources)Metastasis to head and neck lymph node; Translations: [Secondary and unspecified malignant neoplasmof lymph nodes of head, face, and neck]Chronic Secondary malignancies (2 sources)Secondary malignant neoplastic disease; Translations: [Other malignant neoplasm without specification of site]ChronicSecondary malignancies (20 sources)Secondary malignant neoplasm of lymph node; Translations: [Secondary and unspecified malignant neoplasm of lymph node, unspecified]Onset: 12-10-2022 24-86-6132XtssabrEujzzftizhl; intervertebral disc disorders; other back problems (20 sources)Cervical spondylosis; Translations: [Spondylosis without myelopathy or radiculopathy, cervical region]Onset: 57-55-2439GdbuxbzAjpnrdtqomb; intervertebral disc disorders; other back problems (20 sources)Neck pain; Translations: [Cervicalgia]Onset: 12-05-2021 Resolved: 77-75-5425QhfagbmrEofqsbghc-related disorders (20 sources)Nicotine dependence with current use; Translations: [Nicotine dependence, unspecified, uncomplicated]Onset: 04-14-2021 Resolved: 04-31-6801JlqhxekZyuoqto disorders (3 sources)Thyroid nodule; 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 Transient cerebral ischemia (20 sources)Transient cerebral ischemia; Translations: [Transient cerebral ischemic attack, unspecified]ChronicUnclassified (9 sources)Patient has spine surgeryOnset: 060183-69-5100Mjogwfegvcng (3 sources)History of cervical spine mlixkg63-28-5254Dulyjnngabbp (2 sources)Post-op Spine Surgery; Translations: [Post-op Spine Surgery]Onset: 05-49-3502Rfcbr infection (16 sources)Respiratory syncytial virus infection; Translations: [Other specified viral diseases]Onset: 40-33-9608Syqtcduu Past or Other Problems Problem ClassificationProblemDateDocumented DateEpisodic/ChronicBlindness and vision defects (20 sources)Unspecified visual disturbance; Translations: [Visual disturbance] Onset: 01-30-2022 Resolved: 26-10-9750CihvyddpUckvvvswfbjo (except that caused by tuberculosis or sexually transmitted disease) (20 sources)Myelitis; Translations: [Myelitis, unspecified]Onset: 08-29-2023 37-83-3117HfffffttRmxvetmf; including migraine (3 sources)Headache; including migraineOnset: 11-01-2021 Resolved: 67-56-8916Aajlhod and fatigue (20 sources)Asthenia; Translations: [Weakness]Onset: 823785-83-7232 EpisodicOther and unspecified benign neoplasm (20 sources)Schwannoma; Translations: [Benign neoplasm of peripheral nerves and autonomic nervous system, unspecified]Onset: 850822-89-8097EyegnwelOanyh connective tissue disease (20 sources)Muscle pain; Translations: [Myalgia, unspecified site]Onset: 584004-27-6499FcedrinvXkcse connective tissue disease (20 sources)Pain in left arm; Translations: [Pain in left arm]Onset: 12-29-2022 41-95-2661ZcknjlajAniju connective tissue disease (20 sources)Spasm of cervical paraspinous muscle; Translations: [Other muscle spasm]Onset: 626236-43-0357VaumqpiwYsicm connective tissue disease (20 sources)Radicular pain; Translations: [Neuralgia and neuritis, unspecified] Onset: 428646-74-7217TegexzqyWesdo connective tissue disease (2 sources)Arthrodesis status; Translations: [Arthrodesis status]Onset: 32-08-5677MvcrnetrTymni connective tissue disease (2 sources)Other muscle spasm; Translations: [Other muscle spasm]Onset: 00-02-8368LxaaszesZxapz gastrointestinal disorders (7 sources)Diarrhea, unspecified; Translations: [Diarrhea]Onset: 11-05-2024 22-76-2070YylpxaiyFcbnf lower respiratory disease (20 sources)Multiple nodules of lung; Translations: [Other nonspecific abnormal finding of lung field]Onset: 70-87-0479WgowtgpkVrzgs lower respiratory disease (1 source)Shortness of breath; Translations: [Shortness of breath]Onset: 34-11-0266ImcgmnhrIjepc nervous system disorders (20 sources)Skin sensation disturbance; Translations: [Anesthesia of skin]Onset: 996167-25-8805FgnozwtxZzbqq nervous system disorders (2 sources)Other acute postprocedural pain; Translations: [Other acute postprocedural pain]Onset: 93-59-7514ChrhjthqUykys non-traumatic joint disorders (20 sources)Pain in left shoulder; Translations: [Pain in joint, shoulder region]Onset: 51-11-4698TavbkquvCptbo upper respiratory disease (1 source)Nasal congestionOnset: 04-19-2021 Resolved: 92-32-4647LctukgsoUudlzoys codes; unclassified (1 source)Other general symptoms and signsOnset: 01-30-2022 Resolved: 23-03-3043InzawqurHtxayfjbrvek (1 source)Pressure in head R51.9Onset: 12-26-2021 Resolved: 28-86-7925Dkvaspavtlbe (1 source)Cough R05.9Unclassified (1 source)Acute cough R05.1Unclassified (14 sources)Onset: 10-05-2023 Resolved: 27-04-769782582520-94-3898 Results Test NameValueInterpretationReference NhjdzEbktxksc24rt 77-02-136323Uhpidlg returned phone call. Scheduled surgery for 06/03/25 and scheduled the pre op and post op appt.[facility]36Called and left message for patient to call back to discuss surgery date. Could have surgery on 06/03. Will need a pre op and post op appt scheduled as well. [address] [phone] would like NOÉ Bose to give him a call back FpxyhpPpchuoycihUniversity Hospitals [facility]ly[facility]36Patient called and left publications writer a message stating that his [facility] would be sending over the clearance for the blood thinners. Will be on the lookout in faxes for this.[address] [phone] and spoke to Dr Harvey's office. She did voice that they do not give out surgical clearances and would be faxing over the note and their policy regarding the refusal.[address] Will call Dr Harvey's office on Sunday as office is currently closed.[address] [phone] called into the office requesting to speak with Lidya. Patient was advised Lidya is currently in clinic and will follow up as she has time. [employer] did read the information below to patient and patient verbalized understanding that currently we are going to request documents from [employer], dr. Figueroa will review records and follow up once reviewed.[address] [phone], if the [employer] who prescribes this ASA and plavix will [...] a copy of the policy from his glass [employer] stating that they refuse to make recommendations. We can send a request for records and for a copy of the policy to Dr. Harvey's office.[facility]36Patient called in stating that Dr Harvey who prescribes his blood thinners does not do clearances anymore per his policy and that it is under the decision of the surgeon for the blood thinners. Patient states he would try asking his PCP if they would do a clearance for the blood thinners.[facility]36on [phone] faxed to Dr. Rodriguez [facility] HospitalMRI [facility]/BRAIN WO/W CONTRon 27-52-1603[place] [address] Magnetic Resonance Report Signed Patient: SHANTEL MELENDEZ MR#: [id number] : 1960 Acct:[id number] Age/Sex: 64 / M ADM Date: 04/03/25 Loc: LAB Attending Dr: OZIEL CADENA Ordering Physician: OZIEL CADENA Date of Service: 04/03/25 Procedure(s): MR head/brain wo/w con Accession Number(s): [id number] cc: OZIEL CADENA ; GRISELDA KRAUSE [place] [id number] Patient Name: SHANTEL MELENDEZ MRN: [id number] date: 1960 Sex: M Assigned Patient Location: LAB Current Patient Location: Accession/Order Number: [id number] Exam Date: 04/03/2025 13:45 Report Date: 04/07/2025 [...] Hutchins M.D. 04/07/2025 3:50 PM Dictation Location: [place] [address] Electronically authenticated by: [id number] Date: 04/07/2025 15:50 Dictated By: Gee Hutchins M.D. Signed By: 04/07/25 155 DD/ 49 TD/TT: Coordinator Cardiopulmonary Services:TBHRadiology, Radiologist, - 04/27/[address] [address] Magnetic Resonance Report Signed Patient: SHANTEL MELENDEZ MR#: [id number] : 1960 Acct:[id number] Age/Sex: 64 / M ADM Date: 04/03/25 Loc: LAB Attending Dr: OZIEL CADENA Ordering Physician: OZIEL CADENA Date of Service: 04/03/25 Procedure(s): MR head/brain wo/w con Accession Number(s): [id number] cc: OZIEL CADENA ; GRISELDA KRAUSE The [address] [address] Patient Name: SHANTEL MELENDEZ MRN: [id number] date: 1960 Sex: M Assigned Patient Location: LAB Current Patient Location: Accession/Order Number: [id number] Exam Date: 04/03/2025 13:45 Report Date: 04/07/2025 [...] Hutchins M.D. 04/07/2025 3:50 PM Dictation Location: [place] [address] Electronically authenticated by: [id number] Y Date: 04/07/2025 15:50 Dictated By: Gee Hutchins M.D. Signed By: 04/07/25 1553 DD/ 155 TD/TT: Coordinator Cardiopulmonary Services: TR[facility] HealthcareRadiology Study observation (narrative)[facility] HospitalI [facility]/BRAIN WO/W CONTROrdered By: Radiologist Radiology on 23-16-6049[employer] Work Phone: [phone] [phone] called in and stated his blood thinner holding directions needs to come from his Vascular doctor in [place] - Dr. Harvey ph [phone] [facility] HospitalTelephoneon [phone] MelendezShantel 1960 M Date Provider Department Center 04/06/2025 PAIGE [facility]BOTHAM [facility] SURG [place] Fl Family History Problem Relation Age of Onset Heart disease Mother Cancer Father Stroke Paternal Grandfather Family Status - Relation Status Age at Mother Alive Father Alive Paternal Grandfather AliveNormalUniversCincinnati VA Medical CenterBasophils Auto (Bld) [#/Vol]Ordered By: Griselda Krause on 71-85-3370Gnjhpcxzn (Bld) [#/Vol]0.1 10 3/uL0.0-0.1FCleveland Clinic Mentor HospitalBasophils/100 WBC Auto (Bld) Ordered By: Griselda Krause on 99-48-1421Vwavyvgfk/100 WBC (Bld)1.0 %0.2-2.0[facility] HospitalCholesterol in LDL Calc [Mass/Vol]Ordered By: Griselda Krause on 31-52-5045Gjpmbqrmtld in LDL [Mass/Vol]26.4 mg/dLTrumbull Memorial HospitalComment on above:<100 mg/dl LYRVTXW638-916 mg/dl NEAR OR ABOVE OKHLTQA994- 159 mg/dl BORDERLINE OUTI698-664 mg/dl HIGH>190 mg/dl VERY HIGHCholesterol in VLDL Calc [Mass/Vol]Ordered By: Griselda Krause on 12-69-1835Mcqdxddefpn in VLDL [Mass/Vol]15.6 mg/dLTrumbull Memorial HospitalEosinophils/100 WBC Auto (Bld)Ordered By: Griselda Krause on 08-25-4296Ammnebytfsc/100 WBC (Bld)1.0 %0.9-7.0 [facility] HospitalErythrocyte distribution width Auto (RBC) [Ratio]Ordered By: Griselda Krause on 51-22-4956Jezmnxqrijg distribution width (RBC) [Ratio]13.6 %11.0-15.0[facility] HospitalGlobulin Calc (S) [Mass/Vol]Ordered By: Griselda Krause on 62-49-0745Xpereyrv (S) [Mass/Vol]2.4 g/dL [facility] HospitalGlomerular filtration rate (GFR) estimation in non- AmericanOrdered By: Griselda Krause on 36-87-9981TDB/1.73 sq M.predicted among non-blacks MDRD (S/P/Bld) [Vol rate/Area]mL/min/{1.73_m2}>=60 mL/min/1.73m 2FCleveland Clinic Mentor HospitalHematocrit Auto (Bld) [Volume fraction]Ordered By: Griselda Krause on 64-87-1376Xgqfhwmkgb (Bld) [Volume fraction]41.7 %Low42.0-54.0 [facility] HospitalHemoglobin [Mass/volume] in BloodOrdered By: Griselda Krause on 57-81-8283Lboyzhsvrh (Bld) [Mass/Vol]14.1 g/dL14.0-18.0[facility] HospitalLaboratory - Chemistry and Chemistry - challengeOrdered By: Griselda Krause on 29-72-1560Wvrrcoj [Mass/Vol]2.9 g/dLLow3.4-5.0[facility] HospitalALP [Catalytic activity/Vol]70 U/L37-851TfsvtzhnwTrumbull Memorial HospitalALT [Catalytic activity/Vol]38 U/E31-83TrzxfkmxzTrumbull Memorial HospitalAST [Catalytic activity/Vol]17 U/S06-74GjuvikgseTrumbull Memorial HospitalBilirubin [Mass/Vol]0.7 mg/dL0.2-1.0[facility] Calcium [Mass/Vol]8.6 mg/dL8.5-10.1FCleveland Clinic Mentor HospitalChloride [Moles/Vol]107 mmol/Y12-283TpbrcyvrsTrumbull Memorial HospitalCholesterol [Mass/Vol]96 mg/dL<=200[facility] HospitalCholesterol in HDL [Mass/Vol]54 mg/pH69-60DadphpkgmTrumbull Memorial HospitalComment on above:> or =60 mg/dl - LOW CARDIOVASCULAR RISK<40 mg/dl - HIGH CARDIOVASCULAR RISKCO2 [Moles/Vol]28.2 mmol/L21.0-32.0[facility] HospitalCreatinine [Mass/Vol]0.89 mg/dL0.70-1.30[facility] HospitalGFR/1.73 sq M.predicted MDRD (S/P/Bld) [Vol rate/Area]mL/min/{1.73_m2}>=60 mL/min/1.73m 2 [facility] HospitalGlucose [Mass/Vol]83 mg/kK99-090IhekvaudnTrumbull Memorial HospitalPotassium [Moles/Vol]4.1 mmol/L3.5-5.1FCleveland Clinic Mentor HospitalProtein [Mass/Vol]5.3 g/dLLow6.4-8.2FOhioHealth Grant Medical Centerodium [Moles/Vol]140 mmol/U806-501PzvgujghkTrumbull Memorial Hospital Triglyceride [Mass/Vol]78 mg/dL<=150Tr[facility]ull Memorial HospitalTSH Qn1.929 m[IU]/L0.358-3.740Tr[facility]ull Memorial HospitalUrea nitrogen [Mass/Vol]14.0 mg/dL7.0-18.0[facility] HospitalUrea nitrogen/Creatinine [Mass ratio]15.7 mg/mgTrumbull Memorial HospitalLaboratory - Hematology and Cell countsOrdered By: Griselda Krause on 96-22-9021Xalinfsu granulocytes/100 WBC (Bld)0.1 %0.0-0.5FCleveland Clinic Mentor HospitalLeukocytes [#/volume] corrected for nucleated erythrocytes in Blood by Automated counOrdered By: Griselda Krause on 18-91-0729UIY corrected for nucl RBC Auto (Bld) [#/Vol]6.7 10 3/uL 4.0-11.0[facility] HospitalLymphocytes Auto (Bld) [#/Vol]Ordered By: Griselda Krause on 90-30-4645Lyihzwuzult (Bld) [#/Vol]2.5 10 3/uL1.2-3.8[facility] HospitalLymphocytes/100 WBC Auto (Bld)Ordered By: Griselda Krause on 87-54-2065Vxmjbabzvhi/100 WBC (Bld)36.8 %20.5-60.0[facility] HospitalMCH Auto (RBC) [Entitic mass]Ordered By: Griselda Krause on 47-92-5808HFU (RBC) [Entitic mass]31.8 pg25.9-34.0[facility] HospitalMCHC Auto (RBC) [Mass/Vol]Ordered By: Griselda Krause on 04-54-6864TJAZ (RBC) [Mass/Vol]33.8 g/dL 29.9-35.2FCleveland Clinic Mentor HospitalMCV Auto (RBC) [Entitic vol]Ordered By: Griselda Krause on 35-56-6376PYF (RBC) [Entitic vol]94.1 rUQtlv79.0-94.0[facility] HospitalMonocytes Auto (Bld) [#/Vol]Ordered By: Griselda Krause on 56-22-3196Rklhvvdkd (Bld) [#/Vol]0.3 10 3/uL0.3-0.8[facility] HospitalMonocytes/100 WBC Auto (Bld)Ordered By: Griselda Krause on 04-03-2025 Monocytes/100 WBC (Bld)4.9 %1.7-12.0[facility] HospitalNeutrophils Auto (Bld) [#/Vol]Ordered By: Griselda Krause on 26-75-2058Piahokjuzyk (Bld) [#/Vol] 3.8 10 3/uL1.4-6.5FCleveland Clinic Mentor HospitalNeutrophils/100 WBC Auto (Bld)Ordered By: Griselda Krause on 96-36-3664Qgtqbcgdxuq/100 WBC (Bld)56.2 % 43.0-75.0[facility] HospitalNo Panel InformationOrdered By: Griselda Krause on 14-19-7687Lafepiwpdvm # (Auto)0.1 10 3/uL0.0-0.7FCleveland Clinic Mentor HospitalImmature Granulocyte # (Auto)0.01 10 3/uL0.00-0.03[facility] HospitalPlatelet mean volume Auto (Bld) [Entitic vol]Ordered By: Griselda Krause on 39-41-0330Abtroxta mean volume (Bld) [Entitic vol]11.6 fL9.5-13.5 [facility] HospitalPlatelets Auto (Bld) [#/Vol]Ordered By: Griselda Krause on 53-46-8565Kvqhcxjvx (Bld) [#/Vol]285 10 3/mC549-546TlmhhhhvuTrumbull Memorial HospitalRBC Auto (Bld) [#/Vol]Ordered By: Griselda Krause on 26-85-4042GLM (Bld) [#/Vol]4.43 10 6/uLLow4.70-6.10C[facility] Mentor Hospitalerum or plasma albumin/globulin mass ratioOrdered By: Griselda Krause on 04-03-2025 Albumin/Globulin [Mass ratio]1.2 {ratio}[facility] Hospitalerum or plasma anion gap determinationOrdered By: Griselda Krause on 45-02-3255Uqdis gap [Moles/Vol]8.9 mmol/LFOhioHealth Grant Medical Centererum or plasma total cholesterol/high density lipoprotein (HDL) cholesterol mass ratOrdered By: Griselda Krause on 40-55-3436Gongkkycwze.total/Cholesterol in HDL [Mass ratio]1.8 {ratio} [facility] HospitalComment on above:3.3 - 4.4 LOW RISK4.4 - 7.1 AVERAGE RISK7.1 - 11.0 MODERATE RISK>11.0 HIGH RISKConsulton 06-82-6644Grmnycv [id number] Shantel Melendez 1960 M Date Provider Department Center 03/24/2025 DEBRA LYNN [facility] SURG Second Fl Family History Problem Relation Age of Onset Heart disease Mother Cancer Father Stroke Paternal Grandfather Family Status - Relation Status Age at Mother Alive Father Alive Paternal Grandfather Alive Level of Service:18305 [place] OFFICE/OUTPATIENT NEW MODERATE MDM 45 MINUTESNormal [facility] HospitalUS ankle/arm indiceson 73-02-7083XU ankle/arm indicesMERCY HEALTH – THE [place] [address] Ultrasound Report Signed Patient: Shantel Melendez MR#: [id number] : 1960 Acct:[id number] Age/Sex: 64 / M ADM Date: 02/26/25 [...] Harvey MD,FACS,FSVS 02/27/2025 7:42 AM Dictation Location: [place] [address] Tech: Agueda Helm Transcribed By: MARISA 02/27/25 0742 Dictated By: Ruddy Harvey MD 02/27/25 0741 Signed By: 02/27/25 0742[facility] Miami Physician GroupBasophils Auto (Bld) [#/Vol] Ordered By: Sofia Marker on 57-35-6958Ekahlytxl (Bld) [#/Vol]0.1 10 3/uL 0.0-0.1FCleveland Clinic Mentor HospitalBasophils/100 WBC Auto (Bld)Ordered By: Sofia Marker on 84-74-8792Vmadrwefc/100 WBC (Bld)0.7 %0.2-2.0[facility] HospitalEosinophils/100 WBC Auto (Bld)Ordered By: Sofia Marker on 51-31-2515Aeyfbtpubyq/100 WBC (Bld)1.1 %0.9-7.0[facility] HospitalErythrocyte distribution width Auto (RBC) [Ratio]Ordered By: Sofia Marker on 95-24-6127Nzwobriobcg distribution width (RBC) [Ratio]13.4 %11.0-15.0 [facility] HospitalFibrin D-dimer [Presence] in Platelet poor plasma by Latex agglutinationOrdered By: Soifa Marker on 52-85-5528Srubps D- dimer LA Ql (PPP)0.56 mg/L FEU<=0.59[facility] HospitalComment on above:Increases in D-Dimer concentration observed [...] Calc (S) [Mass/Vol]Ordered By: Sofia Marker on 17-90-3173Kisdjqzy (S) [Mass/Vol]2.5 g/dLTrumbull Memorial HospitalGlomerular filtration rate (GFR) estimation in non- AmericanOrdered By: Sofia Marker on 02-18-2025 GFR/1.73 sq M.predicted among non-blacks MDRD (S/P/Bld) [Vol rate/Area] mL/min/{1.73_m2}>=60 mL/min/1.73m 2FCleveland Clinic Mentor HospitalHematocrit Auto (Bld) [Volume fraction]Ordered By: Sofia Marker on 75-18-6670Xwyaflcoyn (Bld) [Volume fraction]39.7 %Low42.0-54.0[facility] Hemoglobin [Mass/volume] in BloodOrdered By: Sofia Marker on 02-18-2025 Hemoglobin (Bld) [Mass/Vol]13.8 g/dLLow14.0-18.0[facility] HospitalLaboratory - Chemistry and Chemistry - challengeOrdered By: Sofia Marker on 26-07-5128Yirnqhq [Mass/Vol]3.0 g/dLLow3.4-5.0[facility] HospitalALP [Catalytic activity/Vol]68 U/P83-145WvpkawrugTrumbull Memorial Hospital ALT [Catalytic activity/Vol]18 U/C57-20TgzbcjfvlTrumbull Memorial HospitalAST [Catalytic activity/Vol]11 U/ITua03-14PdzowlldzTrumbull Memorial HospitalBilirubin [Mass/Vol]0.8 mg/dL0.2-1.0[facility] HospitalCalcium [Mass/Vol]9.5 mg/dL8.5-10.1FCleveland Clinic Mentor HospitalChloride [Moles/Vol]108 mmol/L Yvhf68-406RjcjpwawbTrumbull Memorial HospitalCO2 [Moles/Vol]27.5 mmol/L21.0-32.0 [facility] HospitalCreatinine [Mass/Vol]0.87 mg/dL0.70-1.30 [facility] HospitalGFR/1.73 sq M.predicted MDRD (S/P/Bld) [Vol rate/Area]mL/min/{1.73_m2}>=60 mL/min/1.73m 2FC[facility] Hospital Glucose [Mass/Vol]78 mg/iJ28-532YfkjqpsenTrumbull Memorial HospitalPotassium [Moles/Vol]4.1 mmol/L3.5-5.1FCleveland Clinic Mentor HospitalProtein [Mass/Vol] 5.5 g/dLLow6.4-8.2FOhioHealth Grant Medical Centerodium [Moles/Vol]144 mmol/L 136-145[facility] HospitalUrea nitrogen [Mass/Vol]11.0 mg/dL 7.0-18.0[facility] HospitalUrea nitrogen/Creatinine [Mass ratio] 12.6 mg/mgTrumbull Memorial HospitalLaboratory - Hematology and Cell countsOrdered By: Sofia Marker on 10-23-2701Vvexobbv granulocytes/100 WBC (Bld)0.3 %0.0-0.5FCleveland Clinic Mentor HospitalLeukocytes [#/volume] corrected for nucleated erythrocytes in Blood by Automated counOrdered By: Sofia Marker on 59-04-8390PYX corrected for nucl RBC Auto (Bld) [#/Vol]7.4 10 3/uL4.0-11.0[facility] HospitalLymphocytes Auto (Bld) [#/Vol] Ordered By: Sofia Marker on 84-52-7045Hoegrjzmlpz (Bld) [#/Vol]2.1 10 3/uL 1.2-3.8[facility] HospitalLymphocytes/100 WBC Auto (Bld)Ordered By: Sofia Marker on 69-10-3276Uaqhgaovadt/100 WBC (Bld)28.8 %20.5-60.0 [facility] HospitalMCH Auto (RBC) [Entitic mass]Ordered By: Sofia Marker on 26-74-2054OVJ (RBC) [Entitic mass]32.5 pg25.9-34.0[facility] HospitalMCHC Auto (RBC) [Mass/Vol]Ordered By: Sofia Marker on 00-77-3498BQTC (RBC) [Mass/Vol]34.8 g/dL29.9-35.2FCleveland Clinic Mentor HospitalMCV Auto (RBC) [Entitic vol]Ordered By: Sofia Marker on 62-58-0340XGM (RBC) [Entitic vol]93.4 fL80.0-94.0[facility] HospitalMonocytes Auto (Bld) [#/Vol]Ordered By: Sofia Marker on 35-18-2771Fvlyxnqwd (Bld) [#/Vol]0.4 10 3/uL0.3-0.8[facility] HospitalMonocytes/100 WBC Auto (Bld)Ordered By: Sofia Marker on 35-36-9517Uzomspkmz/100 WBC (Bld)5.6 % 1.7-12.0[facility] HospitalNeutrophils Auto (Bld) [#/Vol]Ordered By: Sofia Marker on 56-45-0733Tkumvtmqriv (Bld) [#/Vol]4.7 10 3/uL1.4-6.5 [facility] HospitalNeutrophils/100 WBC Auto (Bld)Ordered By: Sofia Marker on 21-34-4715Lfohvljgxuf/100 WBC (Bld)63.5 %43.0-75.0[facility] HospitalNo Panel InformationOrdered By: Sofia Marker on 11-42-6371Mpekgxxpywd # (Auto)0.1 10 3/uL0.0-0.7FCleveland Clinic Mentor HospitalImmature Granulocyte # (Auto)0.02 10 3/uL0.00-0.03[facility] HospitalTroponin I High Yyzpfawodnj19.3 pg/mL4.0-76.1FCleveland Clinic Mentor HospitalComment on above:CUT-OFF POINTS HAVE BEEN ESTABLISHED [...] (Bld) [Entitic vol]Ordered By: Sofia Marker on 61-48-2194Eojywctn mean volume (Bld) [Entitic vol]11.4 fL9.5-13.5FCleveland Clinic Ment[facility] Hospital Platelets Auto (Bld) [#/Vol]Ordered By: Sofia Marker on 42-54-7079Jreqidjdm (Bld) [#/Vol]246 10 3/uE748-512SkncoxncnTrumbull Memorial HospitalRBC Auto (Bld) [#/Vol]Ordered By: Sofia Marker on 06-77-3459STB (Bld) [#/Vol]4.25 10 6/uLLow 4.70-6.10C[facility] Hospitalerum or plasma albumin/globulin mass ratioOrdered By: Sofia Marker on 00-04-8406Wunmtob/Globulin [Mass ratio]1.2 {ratio}[facility] Hospitalerum or plasma anion gap determination Ordered By: Sofia Marker on 80-22-9602Ciuqr gap [Moles/Vol]12.6 mmol/L [facility]36on 26-92-230630Dvykrcd scheduled for 03/24/25 @ 10:30amNormalBlanchard [facility] Bluffton Hospital36LVM for pt to call clinic to schedule consult with Dr. Figueroa to discuss SCS placement. Imaging requested. Please transfer pt to pre reg after call. Please inform publications writer when scheduled. Tingz reps will need notified.Normal [facility] HospitalTelephoneon [id number] Shantel Melendez 1960 M Date Provider Department Center 02/13/2025 AYAH ALCOCER [facility] SURG Second Fl No family history on fileNormalUniversity of Hill Country Memorial HospitalActivated partial thromboplastin time (aPTT) in platelet poor plasma by coagulation a Ordered By: Andguillaume Ramsey on 85-53-4114yKVW Coag (PPP) [Time]24.2 s 22.3-36.2FCleveland Clinic Mentor HospitalBasophils Auto (Bld) [#/Vol]Ordered By: Andrius Giedraitis on 75-16-6809Yziekjaxi (Bld) [#/Vol]0.0 10 3/uL0.0-0.1 [facility] HospitalBasophils/100 WBC Auto (Bld)Ordered By: Andrius Flowersraitis on 00-12-1337Qrshatclh/100 WBC (Bld)0.2 %0.2-2.0[facility] HospitalEosinophils/100 WBC Auto (Bld)Ordered By: Andrius Flowersraitis on 35-48-0114Qtjrpbqjffl/100 WBC (Bld)0.1 %Low0.9-7.0[facility] HospitalErythrocyte distribution width Auto (RBC) [Ratio]Ordered By: Andrius Gipaoraitis on 05-69-6727Znywcebcatl distribution width (RBC) [Ratio]14.1 % 11.0-15.0[facility] HospitalGlomerular filtration rate (GFR) estimation in non- AmericanOrdered By: Andrius Ramsey on 01-27-2025 GFR/1.73 sq M.predicted among non-blacks MDRD (S/P/Bld) [Vol rate/Area] mL/min/{1.73_m2}>=60 mL/min/1.73m 2FCleveland Clinic Mentor HospitalHematocrit Auto (Bld) [Volume fraction]Ordered By: Andrius Flowersrajovany on 01-27-2025 Hematocrit (Bld) [Volume fraction]38.0 %Low42.0-54.0[facility] HospitalHemoglobin [Mass/volume] in BloodOrdered By: Andrius Kristieraitis on 93-80-7145Ftaxctygfe (Bld) [Mass/Vol]13.0 g/dLLow14.0-18.0[facility] HospitalINR in Platelet poor plasma by Coagulation assayOrdered By: Sarina Ramsey on 89-16-2924DLI Coag (PPP) [Relative time]1.09 {INR} [facility] HospitalComment on above:DESIRED INR:2.0-3.0 CONDITIONS NOT LISTED BELOW2.5-3.5 FOR PROSTHETIC HEART VALVE REPLACEMENT2.5-3.5 RECURRENT THROMBOSISLaboratory - Chemistry and Chemistry - challengeOrdered By: Sarina Ramsey on 37-40-9893Nuaybra [Mass/Vol]9.2 mg/dL8.5-10.1FCleveland Clinic Mentor HospitalChloride [Moles/Vol]106 mmol/K38-415FeazhtaryTrumbull Memorial HospitalCO2 [Moles/Vol]28.7 mmol/L21.0-32.0[facility] Creatinine [Mass/Vol]0.81 mg/dL0.70-1.30[facility] GFR/1.73 sq M.predicted MDRD (S/P/Bld) [Vol rate/Area]mL/min/{1.73_m2}>=60 mL/min/1.73m 2FCleveland Clinic Mentor HospitalGlucose [Mass/Vol]89 mg/eM15-001 [facility] HospitalPotassium [Moles/Vol]3.7 mmol/L3.5-5.1FOhioHealth Grant Medical Centerodium [Moles/Vol]138 mmol/A916-403CbofmzqswTrumbull Memorial HospitalUrea nitrogen [Mass/Vol]17.0 mg/dL7.0-18.0[facility] HospitalUrea nitrogen/Creatinine [Mass ratio]21.0 mg/mgTrumbull Memorial HospitalLaboratory - Hematology and Cell countsOrdered By: Sarina Ramsey on 09-95-1355Jnomfnnl granulocytes/100 WBC (Bld)0.2 %0.0-0.5FCleveland Clinic Mentor HospitalLeukocytes [#/volume] corrected for nucleated erythrocytes in Blood by Automated counOrdered By: Sarina Ramsey on 54-79-5428BYC corrected for nucl RBC Auto (Bld) [#/Vol]8.2 10 3/uL4.0-11.0 [facility] HospitalLymphocytes Auto (Bld) [#/Vol]Ordered By: Andrius Giedraitis on 99-03-0166Nmxrlfuuqfn (Bld) [#/Vol]2.4 10 3/uL1.2-3.8 [facility] HospitalLymphocytes/100 WBC Auto (Bld)Ordered By: Andrius Giedraitis on 56-84-3484Vvwosuglixo/100 WBC (Bld)29.3 %20.5-60.0 [facility] CenterH Auto (RBC) [Entitic mass]Ordered By: Andrius Giedraitis on 99-55-6641MXE (RBC) [Entitic mass]32.1 pg25.9-34.0 [facility] HospitalMCHC Auto (RBC) [Mass/Vol]Ordered By: Andrius Giedraitis on 13-69-0211TFJA (RBC) [Mass/Vol]34.2 g/dL29.9-35.2FCleveland Clinic Mentor HospitalMCV Auto (RBC) [Entitic vol]Ordered By: Andrius Giedraitis on 51-59-8786FAB (RBC) [Entitic vol]93.8 fL80.0-94.0[facility] HospitalMonocytes Auto (Bld) [#/Vol]Ordered By: Andrius Giedraitis on 35-54-4673Psquqhzka (Bld) [#/Vol]0.4 10 3/uL0.3-0.8[facility] HospitalMonocytes/100 WBC Auto (Bld)Ordered By: Andrius Giedraitis on 41-18-7077Kjcfqsikz/100 WBC (Bld)5.0 %1.7-12.0[facility] HospitalNeutrophils Auto (Bld) [#/Vol]Ordered By: Andrius Giedraitis on 28-54-3506Mgjqzdmkbfu (Bld) [#/Vol]5.4 10 3/uL1.4-6.5FCleveland Clinic Mentor HospitalNeutrophils/100 WBC Auto (Bld)Ordered By: Andrius Giedraitis on 01-27-2025 Neutrophils/100 WBC (Bld)65.2 %43.0-75.0[facility] HospitalNo Panel InformationOrdered By: Sarina Flowersraitis on 09-74-8050Vdvgeebuakz # (Auto)0.0 10 3/uL0.0-0.7FCleveland Clinic Mentor HospitalImmature Granulocyte # (Auto)0.02 10 3/uL0.00-0.03[facility] HospitalPlatelet mean volume Auto (Bld) [Entitic vol]Ordered By: Andrius Giedraitis on 52-37-5014Jphgaihl mean volume (Bld) [Entitic vol]11.4 fL9.5-13.5FC[facility] Clinic [facility] Hospital Platelets Auto (Bld) [#/Vol]Ordered By: Andrius Giedraitis on 01-27-2025 Platelets (Bld) [#/Vol]214 10 3/xK824-843FfczlbtitTrumbull Memorial Hospital Prothrombin time (PT)Ordered By: Andrius Giedraitis on 10-50-9341NV Coag (PPP) [Time]11.5 s9.0-11.6FCleveland Clinic Mentor HospitalRBC Auto (Bld) [#/Vol] Ordered By: Andrius Giedraitis on 91-14-7575BRZ (Bld) [#/Vol]4.05 10 6/uLLow 4.70-6.10C[facility] Ment[facility] Hospitalerum or plasma anion gap determinationOrdered By: Andrius Giedraitis on 51-35-2589Wjlas gap [Moles/Vol] 7.0 mmol/LFCleveland Clinic Mentor HospitalNo Panel Informationon 59-17-0385GKNC HealthcareNOMO HealthcareXR CERVICAL SPINE 2-3 VIEWSon 94-39-1428XE CERVICAL SPINE 2-3 VIEWSCervical spine. HISTORY: Cervical [...] AvailableX-ray report Ordered By: Yung Pozo on 73-48-4912Cjtku reportMERCY HEALTH – THE [facility] Main [address] [address] XRay Report Signed Patient: Shantel Melendez MR#: [id number] : 1960 Acct:[id number] Age/Sex: 64 / M ADM Date: 5 Loc: [facility]: [facility]: Griselda Krause DO Copies [...] D.OMaria R 2024 4:30 PM Dictation Location: [place] [address] Transcribed By: [facility] 11/24/24 1630 Dictated By: Yung Pozo Jr, DO 11/24/24 1630 Signed By: 11/24/24 1630 [facility] HospitalXR chest 2V*on 68-04-9100WF chest 2V*[facility] Main [address] [address] XRay Report Signed Patient: Shantel Melendez MR#: [id number] : 1960 Acct:[id number] Age/Sex: 64 / M ADM Date: 11/24/24 Loc: [facility] Room: Type: [facility] Attending Dr: Griselda Krause DO Copies [...] D.OMaria R 2024 4:30 PM Dictation Location: [place] [address] Transcribed By: [facility] 11/24/24 1630 Dictated By: Yung Pozo Jr, DO 11/24/24 1630 Signed By: 11/24/24 1630[facility] Miami Physician GroupInfluenza virus B Ag [Presence] in Upper respiratory specimen by Rapid immunoassayon 90-10-9552TOAWT Ag IA.rapid Ql (Nph)Influenza virus B Ag [Presence] in Upper respiratory specimen by Rapid immunoassayTrumbull Memorial HospitalFLUBV Ag IA.rapid Ql (Nph)Negative [facility] HospitalNo Panel Informationon 63-22-4806Vogzqoobz Type A (Rapid)NegativeTrumbull Memorial HospitalPO SARS CoV-2 Antigen NegativeTrumbull Memorial HospitalNo Panel InformationOrdered By: Griselda Krause on 28-52-1186Wjebj Strep (POC)[facility] HospitalRSV (POC) [facility] HospitalCNOVSPon 10-80-9203BXAUVMTqito (SP) Office ([place]) SHANTEL MELENDEZ ([id number]) 1960 M Date Time Provider Department 11/07/24 9:20 AM RACQUEL COLE During your visit today, we recorded the following information about you: Temperature Pulse Respiration Blood pressure 97.5 degrees 72/minute 16/minute 115/89 Weight Height 79.3 kg 1.706 m Racquel Cole MD 11/07/2024 11:09 AM Signed NAME: Shantel Melendez CLINIC NO.: [id number] DATE OF SERVICE: November 07, 2024 (Curtis) Some elements in this clinic note that are critical to medical decision making have been carefully reviewed and included from a prior clinic note dated: November 02, 2023 (Curtis) Referring Provider: Griselda Krause, DO Additional Clinicians involved in Shantel Melendez's care: Dr Kimberly Nichole ENT, Dr. 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 10/05/2021 - MRI Brain: [facility] There is T2 and T2 flair hyperintense [...] This may represent (more content not included)... NormalWilson Street Hospital ClevelandNo Panel InformationOrdered By: Nathanael Arango on 18-92-0651Xvaejnaoakwdq Pathology TestSee commentTrumbull Memorial HospitalComment on above:See report. Scanned copy available in EMR.Pathology Request for Lab Corpon 58-74-5209Locddbclc Request for Lab CorpKeralty Hospital Miami Physician GroupComment on above:Order Comment: GI SPECIMENResult Comment: See report. Scanned copy available in EMR. PERFORMED BY: [place] [address] PATHOLOGIST ENERGY CONSERVATION REPRESENTATIVE EDUARDO HOLLINGSWORTH M.D.Performed By: #### PATH TO [facility] #### [place] [address] USABasophils Auto (Bld) [#/Vol]on 63-82-9523Dnjzjnbzr (Bld) [#/Vol]Automated basophil count<0.11[facility] HospitalBasophils (Bld) [#/Vol]0.06 10*3/uL<0.11[facility] HospitalBasophils/100 WBC Auto (Bld)on 96-29-4845Mcndmltcg/100 WBC (Bld)Automated basophil %[facility] HospitalBasophils/100 WBC (Bld)1.0 %[facility] HospitalBlood manual differential comment interpretation narrativeon 11-03-2024 Manual differential comment Curtis (Bld) [Interp]Blood manual differential comment interpretation narrativeTrumbull Memorial HospitalManual differential comment Curtis (Bld) [Interp]AutoTrumbull Memorial HospitalCBC W Auto Differential panel (Bld)on 08-69-8773Oogtncjzk (Bld) [#/Vol]0.06 10*3/uLNINF [facility] ClinicBasophils/100 WBC (Bld)1 %[address] HospitalDifferential cell count method Nom (Bld)AutoCleveland ClinicEosinophils (Bld) [#/Vol]0.16 10*3/uL NINFCleveland ClinicEosinophils/100 WBC (Bld)2.7 %[address] HospitalErythrocyte distribution width (RBC) [Ratio]14.6 %11.5 - 15.0 %[address] HospitalHematocrit (Bld) [Volume fraction]40 %39.0 - 51.0 %[address] HospitalHemoglobin (Bld) [Mass/Vol]13.6 g/dL13.0 - 17.0 g/dLWilson Street HospitalImmature granulocytes (Bld) [#/Vol]NINFClevelOhio State East HospitalImmature granulocytes/100 WBC (Bld)0.[address] %[address] HospitalLymphocytes (Bld) [#/Vol]2.73 10*3/uLWilson [address] HospitalLymphocytes/100 WBC (Bld)45.3 %[facility]. [facility] HospitalH (RBC) [Entitic mass]31.9 pg26.0 - 34.[address] [facility] HospitalHC (RBC) [Mass/Vol]34 g/dL30.5 - 36.0 g/dLSt. Vincent HospitalV (RBC) [Entitic vol]93.9 fL80.0 - 100.0 fLCCleveland Clinic Fairview HospitalMonocytes (Bld) [#/Vol] 0.4 10*3/uLNINFWilson Street HospitalMonocytes/100 WBC (Bld)6.6 %[facility] Neutrophils (Bld) [#/Vol]2.67 10*3/uLWilson [address] HospitalNeutrophils/100 WBC (Bld) 44.[address] %[address] HospitalNucleated RBC (Bld) [#/Vol]NINFCleveland ClinicNucleated RBC/100 WBC (Bld) [Ratio]0 %/[address] HospitalPlatelet mean volume (Bld) [Entitic vol]11 fL9.0 - 12.7 fLCmartins ferry hospital ClinicPlatelets (Bld) [#/Vol]281 10*3/uLWilson [address] HospitalRBC (Bld) [#/Vol]4.26 10*6/uL4.20 - 6.00 m/[facility] HospitalWBC (Bld) [#/Vol]6.03 10*3/[facility] ClinicBasophils (Bld) [#/Vol]0.06 10*3/uLNormal<0.11CLutheran HospitalComment on above: Order Comment: Specimen Type: BLOOD SPECIMEN Ordering Facility: [facility] Address: [address] [place], [place] [address]Performed By: #### [id number] #### [facility] CLIA [id number] [address] [place] [address]Rgbxfyfij/100 WBC (Bld)1.0 %NormalDiley Ridge Medical Center Comment on above:Order Comment: Specimen Type: BLOOD SPECIMEN Ordering Facility: [facility] Address: [address] [place], [place] [address]Performed By: #### [id number] #### [facility] CLIA [id number] [address] [place] [address]17[address]Ngbzickikqqg cell count method Nom (Bld)AutoNormalCCherrington Hospital on above:Order Comment: Specimen Type: BLOOD SPECIMEN Ordering Facility: [facility] Address: [address] [place], [place] [address]Performed By: #### [id number] #### [facility] CLIA [id number] [address] [place] [address]Zrhkievtfto (Bld) [#/Vol]0.16 10*3/uLNormal<0.46[facility] on above:Order Comment: Specimen Type: BLOOD SPECIMEN Ordering Facility: [facility] Address: [address] [place], [place] [address]Performed By: #### [id number] #### [facility] CLIA [id number] [address] [place] [address]Zyuvffapnrz/100 WBC (Bld)2.7 %NormalDiley [facility] Medical Center Comment on above:Order Comment: Specimen Type: BLOOD SPECIMEN Ordering Facility: [facility] Address: [address] [place], [place] [address]Performed By: #### [id number] #### [facility] CLIA [id number] [address] [place] [address] 26516Xjjkqtqvorf distribution width (RBC) [Ratio]14.6 %Normal 11.5-15.0[facility] on above:Order Comment: Specimen Type: BLOOD SPECIMEN Ordering Facility: [facility] Address: [address] [place], [place] [address]Performed By: #### [id number] #### [facility] CLIA [id number] [address] [place] [address] 04367Ncgyhqoprl (Bld) [Volume fraction]40.0 %Fuilcm76.0-51.0 [facility] on above:Order Comment: Specimen Type: BLOOD SPECIMEN Ordering Facility: [facility] Address: [address] [place], [place] [address]Performed By: #### [id number] #### [facility] CLIA [id number] [address] [place] [address] 88488Pxfojspsmz (Bld) [Mass/Vol]13.6 g/tMBlwdtk15.0-17.0[facility] on above:Order Comment: Specimen Type: BLOOD SPECIMEN Ordering Facility: [facility] Address: [address] [place], [place] [address]Performed By: #### 53729-0 #### [facility] CLIA [id number] [address] [place] [address] 44993Vmwnjank granulocytes (Bld) [#/Vol]10*3/uLNormal<0.10[facility] on above:Order Comment: Specimen Type: BLOOD SPECIMEN Ordering Facility: [facility] Address: [address] [place], [place] [address]Performed By: #### 49915-4 #### [facility] CLIA [id number] [address] [place] [address] 96018Cuatpvgy granulocytes/100 WBC (Bld)0.2 %NormalUniversity Hospitals [facility] on above:Order Comment: Specimen Type: BLOOD SPECIMEN Ordering Facility: [facility] Address: [address] [place], [place] [address]Performed By: #### 18788-6 #### [facility] CLIA [id number] [address] [place] [address] 78944Ubdnzltoiwh (Bld) [#/Vol]2.73 10*3/uLNormal1.00-4.00[facility] on above:Order Comment: Specimen Type: BLOOD SPECIMEN Ordering Facility: [facility] Address: [address] [place], [place] [address]Performed By: #### 95561-8 #### [facility] CLIA [id number] [address] [place], [place] [address]Qnafijroczt/100 WBC (Bld)45.3 %NormalUniversity Hospitals Portage Medical Center on above:Order Comment: Specimen Type: BLOOD SPECIMEN Ordering Facility: [facility] Address: [address] [place], [place] [address]Performed By: #### 31498-0 #### [facility] CLIA [id number] [address] [place] [address] 29971VOE (RBC) [Entitic mass]31.9 xxZnpklq19.0-34.0[facility] on above:Order Comment: Specimen Type: BLOOD SPECIMEN Ordering Facility: [facility] Address: [address] [place], [place] [address]Performed By: #### 05022-2 #### [facility] CLIA [id number] [address] [place], [place] [address]SJTQ (RBC) [Mass/Vol]34.0 g/uFQigqej30.5-36.0[facility] on above:Order Comment: Specimen Type: BLOOD SPECIMEN Ordering Facility: [facility] Address: [address] [place], [place] [address]Performed By: #### 79955-2 #### [facility] CLIA [id number] [address] [place] [address] 30256BOQ (RBC) [Entitic vol]93.9 oGJvzsdu25.0-100.0[facility] on above:Order Comment: Specimen Type: BLOOD SPECIMEN Ordering Facility: [facility] Address: [address] [place], [place] [address]Performed By: #### 89426-1 #### [facility] CLIA [id number] [address] [place] [address] 60015Betqnosns (Bld) [#/Vol]0.40 10*3/uLNormal<0.87[facility] on above:Order Comment: Specimen Type: BLOOD SPECIMEN Ordering Facility: [facility] Address: [address] [place], [place] [address]Performed By: #### 74782-0 #### [facility] CLIA [id number] [address] [place] [address] 80890Ufgpxrokx/100 WBC (Bld)6.6 %NormalDiley Ridge Medical Center Comment on above:Order Comment: Specimen Type: BLOOD SPECIMEN Ordering Facility: [facility] Address: [address] [place], [place] [address]Performed By: #### 78173-0 #### [facility] CLIA [id number] [address] [place] [address] 15331Jhjhkbkikfq (Bld) [#/Vol]2.67 10*3/uLNormal1.45-7.50[facility] on above:Order Comment: Specimen Type: BLOOD SPECIMEN Ordering Facility: [facility] Address: [address] [place], [place] [address]Performed By: #### 44269-5 #### [facility] CLIA [id number] [address] [place] [address] 45979Webklvciwpj/100 WBC (Bld)44.2 %NormalDiley Ridge Medical CenterComascension borg[facility] on above:Order Comment: Specimen Type: BLOOD SPECIMEN Ordering Facility: [facility] Address: [address] [place], [place] [address]Performed By: #### 12074-7 #### [facility] CLIA [id number] [address] [place] [address] 92295Jpxveqytc RBC (Bld) [#/Vol]10*3/uLNormal<0.01[facility] on above:Order Comment: Specimen Type: BLOOD SPECIMEN Ordering Facility: [facility] Address: [address] [place], [place] [address]Performed By: #### 26129-9 #### [facility] CLIA [id number] [address] [place], [place] [address]Tyrjxjkmh RBC/100 WBC (Bld) [Ratio]0.0 /100 WBCNormalCCherrington Hospital on above:Order Comment: Specimen Type: BLOOD SPECIMEN Ordering Facility: [facility] Address: [address] [place], [place] [address]Performed By: #### 66098-8 #### [facility] CLIA [id number] [address] [place], [place] [address]Nlesvzrd mean volume (Bld) [Entitic vol]11.0 fLNormal9.0-12.7 [facility] on above:Order Comment: Specimen Type: BLOOD SPECIMEN Ordering Facility: [facility] Address: [address] [place], [place] [address]Performed By: #### 31806-1 #### [facility] CLIA [id number] [address] [place], [place] [address]Nuqpdzyal (Bld) [#/Vol]281 10*3/nFQbjzph578-170UbxavvmmyUniversity Hospitals Portage Medical Center on above:Order Comment: Specimen Type: BLOOD SPECIMEN Ordering Facility: [facility] Address: [address] [place], [place] [address]Performed By: #### 63287-6 #### [facility] CLIA [id number] [address] [place], [place] [address]LFQ (Bld) [#/Vol]4.26 10*6/uLNormal4.20-6.00[facility] on above:Order Comment: Specimen Type: BLOOD SPECIMEN Ordering Facility: [facility] Address: [address] [place], [place] [address]Performed By: #### 69118-9 #### [facility] CLIA [id number] [address] [place], [place] [address]XJM (Bld) [#/Vol]6.03 10*3/uLNormal3.70-11.00[facility] on above:Order Comment: Specimen Type: BLOOD SPECIMEN Ordering Facility: [facility] Address: [address] [place], [place] [address]Performed By: #### 66767-4 #### [facility] CLIA [id number] [address] [place], [place] [address]DBZWwv 27-72-3033DIWWIzsjphdfg (HEMTSA) SHANTEL MELENDEZ ([id number]) 1960 M Date Time Provider Department 11/03/24 [...] [C76.0] Order(s):COMPREHENSIVE METABOLIC PANEL [SQCMP] Order #: [id number] FUTURE COMPLETE BLOOD COUNT AND DIFFERENTIAL [SQCBCDIF] Order #: [id number] FUTURE Prescriptions as of 11/03/2024 - amLODIPine [...] hours. Encounter Status:Closed by RACQUEL COLE on 11/03/24[facility] CHEST W IVCONon [id number] CHEST W IVCON* * *Final Report* * * DATE OF EXAM: Nov 03 2024 8:41AM [facility] 0539 - CT CHEST W IVCON [...] any questions regarding this interpretation, please call [phone]. If you are unable to reach us at the number above, please feel free to contact [facility] eRadiology at [phone]. [id number] Ridge Medical CenterCT Chest W contrast Tristin 67-47-7162TZEHYQDBGH: 1. No CT evidence of new metastatic [...] any questions regarding this interpretation, please call [phone]. If you are unable to reach us at the number above, please feel free to contact [facility]iology at [phone].DIVISION OF RADIOLOGY* * *Final Report* * * DATE OF EXAM: Nov 03 2024 8:41AM [facility] 0539 - CT CHEST W IVCON [...] images: No additional findings. DIVISION OF RADIOLOGYProvider, [facility] [place] - 11/03/2024 * * *Final Report* * * DATE OF EXAM: Nov 03 2024 8:41AM [facility] 0539 - CT CHEST W IVCON [...] any questions regarding this interpretation, please call [phone]. If you are unable to reach us at the number above, please feel free to contact [facility]Radiology at [phone]. [facility] SouthCT NECK SOFT TISSUE W IVCONon 27-30-6416DB NECK SOFT TISSUE W IVCON* * *Final Report* * * DATE OF EXAM: Nov 03 2024 8:41AM [facility] 0013 - CT NECK SOFT TISSUE [...] 1. No evidence of abnormal lymph nodes. [email or web address] [email or web address] Transcribe Date/Time: Nov 03 2024 8:53A Dictated by: BENJAMIN AL MD This examination was interpreted and the report reviewed and electronically signed by: BENJAMIN AL MD on Nov 03 2024 9:01AM EST Thank you for allowing us to participate in the care of your patient. Should there be any questions regarding this interpretation, please call [phone]. If you are unable to reach us at the number above, please feel free to contact [facility]Radiology at [phone]. [id number] County Hospital Neck W contrast Tristin 43-77-0092EKNDBGMYZX: Primary: Category 1. Expected post-treatment changes in the neck without evidence of recurrent disease in the primary site. Neck: Category 1. No evidence of abnormal lymph nodes. [email or web address] ors.pdf Transcribe Date/Time: Nov 03 2024 8:53A Dictated by: BENJAMIN AL MD This examination was interpreted and the report reviewed and electronically signed by: BENJAMIN AL MD on Nov 03 2024 9:01AM EST Thank you for allowing us to participate in the care of your patient. Should there be any questions regarding this interpretation, please call [phone]. If you are unable to reach us at the number above, please feel free to contact [facility] at [phone].DIVISION OF RADIOLOGY* * *Final Report* * * DATE OF EXAM: Nov 03 2024 8:41AM [facility] 0013 - CT NECK SOFT TISSUE [...] mass. Other: Not applicable. DIVISION OF RADIOLOGYProvider, [facility] [place] - 11/03/2024 * * *Final Report* * * DATE OF EXAM: Nov 03 2024 8:41AM [facility] 0013 - CT NECK SOFT TISSUE [...] 1. No evidence of abnormal lymph nodes. [email or web address]-Dizhlfvq ors.[email or web address] Transcribe Date/Time: Nov 03 2024 8:53A Dictated by: BENJAMIN AL MD This examination was interpreted and the report reviewed and electronically signed by: BENJAMIN AL MD on Nov 03 2024 9:01AM EST Thank you for allowing us to participate in the care of your patient. Should there be any questions regarding this interpretation, please call [phone]. If you are unable to reach us at the number above, please feel free to contact [facility]Radiology at [phone]. [facility] Neck W contrast IVOrdered By: Ccf Provider on 11-03-[address]Eosinophils/100 WBC Auto (Bld)on 91-28-1165Uivppbytzek/100 WBC (Bld)Automated eosinophil %[facility] HospitalEosinophils/100 WBC (Bld)2.7 %[facility] HospitalErythrocyte distribution width Auto (RBC) [Ratio]on 12-99-9506Mynuiqmffrb distribution width (RBC) [Ratio] Erythrocyte distribution width [Ratio] by Automated count11.5-15.0[facility] HospitalErythrocyte distribution width (RBC) [Ratio]14.6 % 11.5-15.0[facility] HospitalHematocrit Auto (Bld) [Volume fraction]on 89-18-6717Kaxkafwixi (Bld) [Volume fraction]Hematocrit [Volume Fraction] of Blood by Automated count39.0-51.0[facility] Hematocrit (Bld) [Volume fraction]40.0 %39.0-51.0[facility] HospitalHemoglobin [Mass/volume] in Bloodon 34-05-2965Yychvftmbv (Bld) [Mass/Vol] Hemoglobin [Mass/volume] in Blood13.0-17.0[facility] Hemoglobin (Bld) [Mass/Vol]13.6 g/dL13.0-17.0[facility] - Hematology and Cell countson 62-53-1428Omprwhiscmc (Bld) [#/Vol] 0.16 10*3/uL<0.46[facility] HospitalImmature granulocytes/100 WBC (Bld)0.2 %[facility] HospitalLeukocytes [#/volume] corrected for nucleated erythrocytes in Blood by Automated counon 32-45-0551DHD corrected for nucl RBC Auto (Bld) [#/Vol]Leukocytes [#/volume] corrected for nucleated erythrocytes in Blood by Automated coun3.70-11.00[facility] HospitalWBC corrected for nucl RBC Auto (Bld) [#/Vol]6.03 k/uL3.70-11.00[facility] HospitalLymphocytes Auto (Bld) [#/Vol]on 25-00-8089Zgfwzkigofz (Bld) [#/Vol]Lymphocytes [#/volume] in Blood by Automated count1.00-4.00 [facility] HospitalLymphocytes (Bld) [#/Vol]2.73 10*3/uL1.00-4.00 [facility] HospitalLymphocytes/100 WBC Auto (Bld)on 11-03-2024 Lymphocytes/100 WBC (Bld)Lymphocytes/100 leukocytes in Blood by Automated count [facility] HospitalLymphocytes/100 WBC (Bld)45.3 %[facility] Auto (RBC) [Entitic mass]on 15-58-4240BFQ (RBC) [Entitic mass]MCH [Entitic mass] by Automated count26.0-34.0[facility] CenterH (RBC) [Entitic mass]31.9 pg26.0-34.0[facility] HospitalMCHC Auto (RBC) [Mass/Vol]on 34-47-1595ZDHJ (RBC) [Mass/Vol]MCHC [Mass/volume] by Automated count30.5-36.0[facility] CenterHC (RBC) [Mass/Vol]34.0 g/dL30.5-36.0[facility] HospitalMCV Auto (RBC) [Entitic vol]on 76-78-3519ZPN (RBC) [Entitic vol]MCV [Entitic volume] by Automated count80.0-100.0[facility] HospitalMCV (RBC) [Entitic vol]93.9 fL80.0-100.0[facility] HospitalMonocytes Auto (Bld) [#/Vol]on 22-99-3725Jjmsddhmx (Bld) [#/Vol]Automated blood monocyte count<0.87 [facility] HospitalMonocytes (Bld) [#/Vol]0.40 10*3/uL<0.87 [facility] HospitalMonocytes/100 WBC Auto (Bld)on 11-03-2024 Monocytes/100 WBC (Bld)Automated monocyte %[facility] Monocytes/100 WBC (Bld)6.6 %[facility] HospitalNeutrophils Auto (Bld) [#/Vol]on 47-18-9468Uhsmcebuees (Bld) [#/Vol]Neutrophils [#/volume] in Blood by Automated count1.45-7.50[facility] HospitalNeutrophils (Bld) [#/Vol]2.67 10*3/uL1.45-7.50[facility] Neutrophils/100 WBC Auto (Bld)on 56-33-7185Fbuiedjxuam/100 WBC (Bld)Automated neutrophil %[facility] HospitalNeutrophils/100 WBC (Bld)44.2 % [facility] HospitalNo Panel Informationon 82-84-6090Dsrofbqzi Study observation (narrative)[facility] Granulocyte # (Auto)<0.03 k/uL<0.10[facility] HospitalNucleated RBC Auto (Bld) [#/Vol]on 10-37-7235Asyrlwqzf RBC (Bld) [#/Vol]Nucleated erythrocytes [#/volume] in Blood by Automated count<0.01[facility] HospitalNucleated RBC (Bld) [#/Vol]10*3/uL<0.01[facility] HospitalNucleated erythrocytes [Presence] in Blood by Automated counton 44-50-8188Pglxarfgv RBC Auto Ql (Bld) Nucleated erythrocytes [Presence] in Blood by Automated countTrumbull Memorial HospitalNucleated RBC Auto Ql (Bld)0.0 /100{WBC}[facility] HospitalPlatelet mean volume Auto (Bld) [Entitic vol]on 63-30-2696Tbnfrauv mean volume (Bld) [Entitic vol]Platelet mean volume [Entitic volume] in Blood by Automated count9.0-12.7FCleveland Clinic Mentor HospitalPlatelet mean volume (Bld) [Entitic vol]11.0 fL9.0-12.7FCleveland Clinic Mentor HospitalPlatelets Auto (Bld) [#/Vol]on 00-41-0936Vsrhoimbb (Bld) [#/Vol]Platelets [#/volume] in Blood by Automated dycpj685-278KtpawvnevTrumbull Memorial HospitalPlatelets (Bld) [#/Vol]281 10*3/bL923-851JuapiptsnTrumbull Memorial HospitalRBC Auto (Bld) [#/Vol] on 82-52-2319PDZ (Bld) [#/Vol]Erythrocytes [#/volume] in Blood by Automated count4.20-6.00[facility] (Bld) [#/Vol]4.26 10*6/uL 4.20-6.00[facility] HospitalMR TRANSFER OF OUTSIDE FILMSon 75-95-0600IB TRANSFER OF OUTSIDE FILMSOutside images for comparison or treatment purposes, not interpreted by Radiologists.[facility] Southtudy Interpretation of outside studyon 10-21-2024 Outside images for comparison or treatment purposes, not interpreted by Radiologists.IMAGINGX-ray reportOrdered By: Dorothy Eubanks on 16-14-2323Agcqr reportMER[facility] [place] [address] XRay Report Signed Patient: Shantel Melendez MR#: [id number] : 1960 Acct:[id number] Age/Sex: 63 / M ADM Date: 5 Loc: XD Room: Type: [facility] Attending Dr: Solomon Narayanan PAFranC [...] Eubanks M.D. 10/10/2024 3:02 PM Dictation Location: [place] [address] Transcribed By: [facility] 10/10/24 150 Dictated By: Dorothy Eubanks MD 10/10/24 1450 Signed By: 10/10/24 1506 [facility] Work Phone: XR cervical spine 2Von 44-80-8636FI cervical spine 2V [facility] Main [place] [address] [place] [address] XRay Report Signed Patient: Shantel Mleendez MR#: [id number] : 1960 Acct:[id number] Age/Sex: 63 / M ADM Date: 10/10/24 Loc: XD Room: Type: [facility] Attending Dr: Solomon Narayanan PA-C [...] Eubanks M.D. 10/10/2024 3:02 PM Dictation Location: [place] [address] Transcribed By: [facility] 10/10/24 150 Dictated By: Dorothy Eubanks MD 10/10/24 1455 Signed By: 10/10/24 1502[facility] Physician GroupAlanine aminotransferase [Enzymatic activity/volume] in Serum or PlasmaOrdered By: Griselda Krause on 12-42-4915RPT [Catalytic activity/Vol]Alanine aminotransferase [Enzymatic activity/volume] in Serum or PlasmaLow7-52[facility] Albumin [Mass/volume] in Serum or Plasma by Bromocresol green (BCG) dye binding methoOrdered By: Griselda Krause on 51-42-0491Prwxxlj BCG dye [Mass/Vol]Albumin [Mass/volume] in Serum or Plasma by Bromocresol green (BCG) dye binding methoLow 3.5-5.7FCleveland Clinic Mentor HospitalAlkaline phosphatase [Enzymatic activity/volume] in Serum or PlasmaOrdered By: Griselda Krause on 94-27-7647EPT [Catalytic activity/Vol]Alkaline phosphatase [Enzymatic activity/volume] in Serum or Iizvnz15-412QguxqxcsbTrumbull Memorial HospitalAspartate aminotransferase [Enzymatic activity/volume] in Serum or PlasmaOrdered By: Griselda Krause on 91-27-7401LCY [Catalytic activity/Vol]Aspartate aminotransferase [Enzymatic activity/volume] in Serum or SchxovYvs89-65QgqeqrperTrumbull Memorial Hospital Basophils Auto (Bld) [#/Vol]Ordered By: Griselda Krause on 39-75-6219Niznhsgnj (Bld) [#/Vol]Automated basophil count0.0-0.2FCleveland Clinic [facility] Hospital Basophils/100 WBC Auto (Bld)Ordered By: Griselda Krause on 11-97-9206Wxxhudynk/100 WBC (Bld)Automated basophil %.[facility] HospitalBilirubin.total [Mass/volume] in Serum or PlasmaOrdered By: Griselda Krause on 88-32-1646Zkgctnwez [Mass/Vol]Bilirubin.total [Mass/volume] in Serum or Plasma0.3-1.0[facility] HospitalCalcium [Mass/volume] in Serum or PlasmaOrdered By: Griselda Krause on 79-69-4060Avthlvu [Mass/Vol]Calcium [Mass/volume] in Serum or Plasma 8.6-10.3FCleveland Clinic Mentor HospitalCarbon dioxide, total [Moles/volume] in Serum or PlasmaOrdered By: Griselda Krause on 83-07-2768CO3 [Moles/Vol]Carbon dioxide, total [Moles/volume] in Serum or Prfslg97.0-31.0[facility] HospitalChloride [Moles/volume] in Serum or PlasmaOrdered By: Griselda Krause on 19-99-7521Ofujrvpe [Moles/Vol]Chloride [Moles/volume] in Serum or Plasma 98-107[facility] HospitalCholesterol [Mass/volume] in Serum or PlasmaOrdered By: Griselda Krause 45-17-0092Tkvgenismtj [Mass/Vol]Cholesterol [Mass/volume] in Serum or IjrtrqItmw038-905FhiysmmraTrumbull Memorial Hospital Comment on above:Chol less than 200 mg/dl low riskChol 201-239 mg/dl borderline riskChol 240 mg/dl and greater high riskCholesterol in HDL [Mass/volume] in Serum or PlasmaOrdered By: Griselda Krause 54-85-5352Piehhndpftx in HDL [Mass/Vol] Serum or plasma high density lipoprotein (HDL) cholesterol -55 [facility] HospitalComment on above:HDL CHOL ATP-III CLASSIFICATION Cardiovascular RiskHDL > or equal to 60 mg/dL LOWHDL < 40 mg/dL HIGHCholesterol in LDL Calc [Mass/Vol]Ordered By: Griselda Krause on 10-07-2024 Cholesterol in LDL [Mass/Vol]Cholesterol in LDL [Mass/volume] in Serum or Plasma by calculationHigh0-100[facility] HospitalComment on above:LDL ATP III CLASSIFICATIONLDL less than 100 mg/dL OptimalLDL 100-129 mg/dL Near or above kwndddsMPB318-887 mg/dL Borderline highLDL 160-189 mg/dL HighLDL greater than 189 mg/dL Very highCholesterol in VLDL Calc [Mass/Vol]Ordered By: Griselda Krause 89-84-8631Iuwhegucfqf in VLDL [Mass/Vol]Cholesterol in VLDL [Mass/volume] in Serum or Plasma by calculationWadsworth-Rittman Hospital [facility] Center Clostridioides difficile toxin B tcdB gene [Presence] in Stool by JER with probe deteOrdered By: Manisha Negron on 10-07-2024. difficile toxin B tcdB gene JER+probe Ql (Stl)Clostridioides difficile toxin B tcdB gene [Presence] in Stool by JER with probe deteNegatOhioHealth Nelsonville Health CenterComment on above:Testing performed by RT-PCRClostridium Difficileon 95-06-8459Jghvdahhqjm DifficileNegativeNormalNegativeThe [facility] Holly Physician GroupComment on above: Result Comment: Testing performed by RT-PCR PERFORMED BY: [place] [address] PATHOLOGIST ENERGY CONSERVATION REPRESENTATIVE RAKEL LAZARO M.D.Performed By: #### CDT #### [place] [address] USAComplete Blood Count Auto Diffon 07-76-7761Rznqqyzrk (Bld) [#/Vol]0.0 10*3/uLNormal0.0-0.2The [facility] Physician GroupComment on above: Result Comment: PERFORMED BY: [place] [address] PATHOLOGIST ENERGY CONSERVATION REPRESENTATIVE RAKEL LAZARO M.D.Performed By: #### CBC, HEPATIC, BMP, LIPASE #### [place] [address] USABasophils/100 WBC (Bld)0.8 %Normal.The [facility] Physician GroupComment on above:Performed By: #### CBC, HEPATIC, BMP, LIPASE #### [place] [address] USAEosinophils (Bld) [#/Vol]0.0 10*3/uLNormal0.0-0.45The [facility] Physician GroupComment on above:Performed By: #### CBC, HEPATIC, BMP, LIPASE #### [place] [address] USAEosinophils/100 WBC (Bld)0.8 %Normal.The [facility] Physician GroupComment on above:Performed By: #### CBC, HEPATIC, BMP, LIPASE #### [place] [address] USAErythrocyte distribution width (RBC) [Ratio]13.7 %Normal 12.0-14.8The [facility] Physician GroupComment on above:Performed By: #### CBC, HEPATIC, BMP, LIPASE #### [place] [address] USAHematocrit (Bld) [Volume fraction]36.6 %Low38.8-50.0The [facility] Physician GroupComment on above:Performed By: #### CBC, HEPATIC, BMP, LIPASE #### [place] [address] USAHemoglobin (Bld) [Mass/Vol]12.8 g/dLLow13.0-17.0The [facility] Physician GroupComment on above:Performed By: #### CBC, HEPATIC, BMP, LIPASE #### [place] [address] USALymphocytes (Bld) [#/Vol]1.7 10*3/uLNormal1.00-4.8The [facility] Physician GroupComment on above:Performed By: #### CBC, HEPATIC, BMP, LIPASE #### [place] [address] USALymphocytes/100 WBC (Bld)31.1 %Normal.The [facility] Physician GroupComment on above:Performed By: #### CBC, HEPATIC, BMP, LIPASE #### [place] [address] USAMCH (RBC) [Entitic mass]32.4 ltQfrjhq54.5-35.2The [facility] Physician GroupComment on above:Performed By: #### CBC, HEPATIC, BMP, LIPASE #### [place] [address] USAMCV (RBC) [Entitic vol]92.8 vZJxjsdc09.5-101The [facility] Physician GroupComment on above:Performed By: #### CBC, HEPATIC, BMP, LIPASE #### [place] [address] USAMean Corpuscular HGB Conc34.9 g/jYTiigdg35.5-35.6The [facility] Physician GroupComment on above:Performed By: #### CBC, HEPATIC, BMP, LIPASE #### [place] [address] USAMonocytes (Bld) [#/Vol]0.3 10*3/uLNormal0.0-0.8The [facility] Physician GroupComment on above:Performed By: #### CBC, HEPATIC, BMP, LIPASE #### [place] [address] USAMonocytes/100 WBC (Bld)4.9 %Normal.The [facility] Physician GroupComment on above:Performed By: #### CBC, HEPATIC, BMP, LIPASE #### [place] [address] USANeutrophils (Bld) [#/Vol]3.4 10*3/uLNormal1.8-7.7The [facility] Physician GroupComment on above:Performed By: #### CBC, HEPATIC, BMP, LIPASE #### [place] [address] USANeutrophils/100 WBC (Bld)62.4 %Normal.The [facility] Physician GroupComment on above:Performed By: #### CBC, HEPATIC, BMP, LIPASE #### [place] [address] USANRBC%0.0 /100{WBC}Normal0-0.5The [facility] Comment on above:Performed By: #### CBC, HEPATIC, BMP, LIPASE #### [place] [address] USAPlatelet mean volume (Bld) [Entitic vol]8.8 fLNormal 6.6-10.1The [facility] Physician GroupComment on above:Performed By: #### CBC, HEPATIC, BMP, LIPASE #### [place] [address] USAPlatelets (Bld) [#/Vol]343 10*3/rGUrdked312-144Jow [facility] Physician GroupComment on above:Performed By: #### CBC, HEPATIC, BMP, LIPASE #### [place] [address] USARBC (Bld) [#/Vol]3.94 10*6/uLNormal3.90-5.60The [facility] Physician GroupComment on above:Performed By: #### CBC, HEPATIC, BMP, LIPASE #### [place] [address] USAWBC (Bld) [#/Vol]5.5 10*3/uLNormal4.1-10.5The [facility] Physician GroupComment on above:Performed By: #### CBC, HEPATIC, BMP, LIPASE #### [place] [address] USAComprehensive Metabolic Panelon 97-81-2741Fdczctk [Mass/Vol]3.4 g/dLLow3.5-5.7The [facility] Physician GroupComment on above: Performed By: #### CBC, HEPATIC, BMP, LIPASE #### [place] [address] USAAlbumin/Globulin [Mass ratio]1.8 {ratio}NormalThe [facility] Physician GroupComment on above:Performed By: #### CBC, HEPATIC, BMP, LIPASE #### [facility] [address] [place] [address] USAALP [Catalytic activity/Vol]62 U/JWxgaqa40-143Xds [facility] Physician GroupComment on above:Performed By: #### CBC, HEPATIC, BMP, LIPASE #### [facility] [address] [place] [address] USAALT [Catalytic activity/Vol]6 U/LLow7-52The [facility] Physician GroupComment on above:Performed By: #### CBC, HEPATIC, BMP, LIPASE #### [place] [address] USAAnion gap [Moles/Vol]9.7 mmol/LNormal6.0-15.0The [facility] Physician GroupComment on above:Performed By: #### CBC, HEPATIC, BMP, LIPASE #### [place] [address] USAAST [Catalytic activity/Vol]8 U/RYoj41-74Tdy [facility] Physician GroupComment on above:Performed By: #### CBC, HEPATIC, BMP, LIPASE #### [place] [address] USABilirubin [Mass/Vol]0.6 mg/dLNormal0.3-1.0The [facility] Physician GroupComment on above:Performed By: #### CBC, HEPATIC, BMP, LIPASE #### [place] [address] USACalcium [Mass/Vol]9.3 mg/dLNormal8.6-10.3The [facility] Physician GroupComment on above:Performed By: #### CBC, HEPATIC, BMP, LIPASE #### [place] [address] USAChloride [Moles/Vol]103 mmol/VZjqutj81-882Fff [facility] Physician GroupComment on above:Performed By: #### CBC, HEPATIC, BMP, LIPASE #### [place] [address] USACO2 [Moles/Vol]29.1 mmol/MDfwpoc54.0-31.0The [facility] Physician GroupComment on above:Performed By: #### CBC, HEPATIC, BMP, LIPASE #### [place] [address] USACreatinine [Mass/Vol]0.74 mg/dLNormal0.70-1.30The [facility] Physician GroupComment on above:Performed By: #### CBC, HEPATIC, BMP, LIPASE #### [place] [address] USAGFR/1.73 sq M.predicted MDRD (S/P/Bld) [Vol rate/Area] mL/min/{1.73_m2}NormalThe [facility] Physician GroupComment on above:Performed By: #### CBC, HEPATIC, BMP, LIPASE #### [facility] [address] [place] [address] USAGlobulin (S) [Mass/Vol]1.9 g/dLNormalThe [facility] Physician GroupComment on above:Performed By: #### CBC, HEPATIC, BMP, LIPASE #### [facility] [address] [place] [address] USAGlucose [Mass/Vol]84 mg/rKYshxhm04-390Uho [facility] Physician GroupComment on above:Result Comment: Random Glucose Reference Range is dependent on time and content of last meal. Glucose of more than 200 mg/dL in a nonstressed, ambulatory subject supports the diagnosis of Diabetes Mellitus. ADA recommended reference rangePerformed By: #### CBC, HEPATIC, BMP, LIPASE #### [facility] [address] [place] [address] USAPotassium [Moles/Vol]4.8 mmol/LNormal3.5-5.1The [facility] Physician GroupComment on above:Performed By: #### CBC, HEPATIC, BMP, LIPASE #### [facility] [address] [place] [address] USAProtein [Mass/Vol]5.3 g/dLLow6.4-8.9The [facility] Physician GroupComment on above:Performed By: #### CBC, HEPATIC, BMP, LIPASE #### [facility] [address] [place] [address] USASodium [Moles/Vol]137 mmol/CJswjcj456-589Zit [facility] Physician GroupComment on above:Performed By: #### CBC, HEPATIC, BMP, LIPASE #### [facility] [address] [place] [address] USAUrea nitrogen [Mass/Vol]7 mg/dLNormal7-25The [facility] Physician GroupComment on above:Performed By: #### CBC, HEPATIC, BMP, LIPASE #### [facility] [address] [place] [address] USACreatinine [Mass/volume] in Serum or PlasmaOrdered By: Griselda Krause on 68-86-0058Bulxwefzsr [Mass/Vol]Creatinine [Mass/volume] in Serum or Plasma0.70-1.30[facility] HospitalEosinophils Auto (Bld) [#/Vol]Ordered By: Griselda Krause on 12-27-1691Mxsbdhmppuf (Bld) [#/Vol]Automated eosinophil count0.0-0.45[facility] HospitalEosinophils/100 WBC Auto (Bld)Ordered By: Griselda Krause on 96-28-4242Oyoztpwjdfz/100 WBC (Bld)Automated eosinophil %.[facility] HospitalErythrocyte distribution width Auto (RBC) [Ratio]Ordered By: Griselda Krause on 41-84-3275Hblylvnwmpu distribution width (RBC) [Ratio]Erythrocyte distribution width [Ratio] by Automated count 12.0-14.8[facility] HospitalGlobulin Calc (S) [Mass/Vol]Ordered By: Griselda Krause on 73-84-1785Jtljtatr (S) [Mass/Vol]Serum globulin measurement by calculation (mass/volume)[facility] HospitalGlucose [Mass/volume] in Serum or PlasmaOrdered By: Griselda Krause on 53-35-8830Bfcfpuo [Mass/Vol]Glucose [Mass/volume] in Serum or Hvdjnu50-461OckoqcrmeTrumbull Memorial HospitalComment on above:ADA recommended reference rangeRandom Glucose Reference Range is dependent on time and content of last meal. Glucose of more than 200 mg/dL in a nonstressed, ambulatory subject supports the diagnosisof Diabetes Mellitus. Hematocrit Auto (Bld) [Volume fraction]Ordered By: Griselda Krause on 10-07-2024 Hematocrit (Bld) [Volume fraction]Hematocrit [Volume Fraction] of Blood by Automated nyymuSon96.8-50.0[facility] HospitalHemoglobin [Mass/volume] in BloodOrdered By: Griselda Krause on 72-73-4069Oswqktduyr (Bld) [Mass/Vol]Hemoglobin [Mass/volume] in HsmatAoz60.0-17.0[facility] HospitalLeukocytes [#/volume] corrected for nucleated erythrocytes in Blood by Automated counOrdered By: Griselda Krause on 65-69-8777BZX corrected for nucl RBC Auto (Bld) [#/Vol]Leukocytes [#/volume] corrected for nucleated erythrocytes in Blood by Automated coun4.1-10.5FC[facility] Hospital Lipid Panelon 55-23-8747Vrroqxietzd [Mass/Vol]204 mg/uJBory453-190Rvh [facility] Physician GroupComment on above:Result Comment: Chol less than 200 mg/dl low risk Chol 201-239 mg/dl borderline risk Chol 240 mg/dl and greater high riskPerformed By: #### CBC, HEPATIC, BMP, LIPASE #### [facility] [address] [place] [address] USACholesterol in HDL [Mass/Vol]35 mg/zTTivjaa18-76Bmz [facility] Physician GroupComment on above:Result Comment: HDL CHOL ATP-III CLASSIFICATION Cardiovascular Risk HDL > or equal to 60 mg/dL LOW HDL < 40 mg/dL HIGHPerformed By: #### CBC, HEPATIC, BMP, LIPASE #### [facility] [address] [place] [address] USACholesterol.total/Cholesterol in HDL [Mass ratio]5.8 {ratio}Normal<5.0The [facility] Physician GroupComment on above:Performed By: #### CBC, HEPATIC, BMP, LIPASE #### [facility] [address] [place] [address] USALDL Cholesterol,Truhaosues001 mg/dLHigh0-100The [facility] Physician GroupComment on above:Result Comment: LDL ATP III CLASSIFICATION LDL less than 100 mg/dL Optimal LDL 100-129 mg/dL Near or above optimal LDL 130-159 mg/dL Borderline high LDL 160-189 mg/dL High LDL greater than 189 mg/dL Very highPerformed By: #### CBC, HEPATIC, BMP, LIPASE #### [facility] [address] [place] [id number] USATriglyceride w/Sjhnow741 mg/dLNormal0-149The [facility] Physician GroupComment on above:Result Comment: TRIG ATP III CLASSIFICATION TRIG less than 150 mg/dL Normal TRIG 150-199 mg/dL Borderline high TRIG 200-500 mg/dL High TRIG greater than 500 mg/dL Very high Standard traceable to the Center for Disease Conrtrol and Prevention (CDC) test method.Performed By: #### CBC, HEPATIC, BMP, LIPASE #### [facility] [address] [place] [id number] USAVLDL GZFYALAVMJQ51 mg/dLNoFormerly [facility] Physician GroupComment on above:Performed By: #### CBC, HEPATIC, BMP, LIPASE #### [facility] [address] [place] [address] USALymphocytes Auto (Bld) [#/Vol]Ordered By: Griselda Krause on 48-43-1371Iwfudvdimkk (Bld) [#/Vol]Lymphocytes [#/volume] in Blood by Automated count1.00-4.8[facility] HospitalLymphocytes/100 WBC Auto (Bld) Ordered By: Griselda Krause on 31-60-5178Lgbmpxbpgya/100 WBC (Bld)Lymphocytes/100 leukocytes in Blood by Automated count.[facility] CenterH Auto (RBC) [Entitic mass]Ordered By: Griselda Krause on 27-46-3165KAR (RBC) [Entitic mass]MCH [Entitic mass] by Automated count27.5-35.2FCleveland Clinic Mentor HospitalMCHC Auto (RBC) [Mass/Vol]Ordered By: Griselda Krause on 62-45-6560OCOS (RBC) [Mass/Vol]MCHC [Mass/volume] by Automated count32.5-35.6FCleveland Clinic Mentor HospitalMCV Auto (RBC) [Entitic vol]Ordered By: Griselda Krause on 10-07-2024 MCV (RBC) [Entitic vol]MCV [Entitic volume] by Automated count83.5-101Tr[facility] HospitalMonocytes Auto (Bld) [#/Vol]Ordered By: Griselda Krause on 76-31-9279Vhjecvcrd (Bld) [#/Vol]Automated blood monocyte count0.0-0.8[facility] HospitalMonocytes/100 WBC Auto (Bld)Ordered By: Griselda Krause on 61-00-9745Pwnazzyye/100 WBC (Bld)Automated monocyte %.[facility] HospitalNeutrophils Auto (Bld) [#/Vol]Ordered By: Griselda Krause on 10-07-2024 Neutrophils (Bld) [#/Vol]Neutrophils [#/volume] in Blood by Automated count 1.8-7.7FCleveland Clinic Mentor HospitalNeutrophils/100 WBC Auto (Bld)Ordered By: Griselda Krause on 97-23-1801Cykahhfknjq/100 WBC (Bld)Automated neutrophil %. [facility] HospitalNo Panel InformationOrdered By: Griselda Krause on 33-13-6379Yaucfpbtj GFR (CKD-EPI)> 60.0 mL/MinTrumbull Memorial Hospital Pharmacy Creatinine Clearance (ChemN/AFCleveland Clinic Mentor HospitalNucleated erythrocytes [Presence] in Blood by Automated countOrdered By: Griselda Krause on 24-78-6958Xcqdtbdbz RBC Auto Ql (Bld)Nucleated erythrocytes [Presence] in Blood by Automated count0-0.5FCleveland Clinic Mentor HospitalPSA Screen (Yearly Only) on 47-69-3837SVY Screen (Yearly Only)0.670 ng/mLNormal0.000-4.000The [facility] Physician GroupComment on above:Result Comment: Serial tumor marker results determined by assays using different manufacturers or methods may not be comparable. [facility] mold builder and method: BeMo DXI, CHEMILUMINESCENT IMMUNOASSAY. PERFORMED BY: [place] [address] PATHOLOGIST ENERGY CONSERVATION REPRESENTATIVE RAKEL LAZARO M.D.Performed By: #### CBC, HEPATIC, BMP, LIPASE #### [place] [address] USAPlatelet mean volume Auto (Bld) [Entitic vol]Ordered By: Griselda Krause on 03-88-4692Xgwiawst mean volume (Bld) [Entitic vol]Platelet mean volume [Entitic volume] in Blood by Automated count6.6-10.1FCleveland Clinic Mentor HospitalPlatelets Auto (Bld) [#/Vol]Ordered By: Griselda Krause on 10-07-2024 Platelets (Bld) [#/Vol]Platelets [#/volume] in Blood by Automated -104 [facility] HospitalPotassium [Moles/volume] in Serum or Plasma Ordered By: Griselda Krause on 95-32-3453Erdceqmuc [Moles/Vol]Potassium [Moles/volume] in Serum or Plasma3.5-5.1FC[facility] Hospital Prostate specific Ag [Mass/volume] in Serum or PlasmaOrdered By: Griselda Krause on 58-34-5612Fxebucwd specific Ag [Mass/Vol]Prostate specific Ag [Mass/volume] in Serum or Plasma0.000-4.000[facility] HospitalComment on above: Serial tumor marker results determined by assays using different manufacturers or methods may not be comparable.[facility] mold builder and method:THELMA UNICEL DXI, CHEMILUMINESCENT IMMUNOASSAY.Protein [Mass/volume] in Serum or PlasmaOrdered By: Griselda Krause on 58-32-1626Zptqhfs [Mass/Vol]Protein [Mass/volume] in Serum or PlasmaLow6.4-8.9Tr[facility] HospitalRBC Auto (Bld) [#/Vol]Ordered By: Griselda Krause on 38-04-2207TEG (Bld) [#/Vol] Erythrocytes [#/volume] in Blood by Automated count3.90-5.60C[facility] Mentor Hospitalerum or plasma albumin/globulin mass ratioOrdered By: Griselda Krause on 46-69-8248Xmibgqz/Globulin [Mass ratio]Serum or plasma albumin/globulin mass ratioCleveland Clinic Mentor Hospitalerum or plasma anion gap determination Ordered By: Griselda Krause on 04-63-1140Zyfph gap [Moles/Vol]Serum or plasma anion gap determination6.0-15.0C[facility] Hospitalerum or plasma total cholesterol/high density lipoprotein (HDL) cholesterol mass ratOrdered By: Griselda Krause on 11-19-9502Sjvmutkpich.total/Cholesterol in HDL [Mass ratio]Serum or plasma total cholesterol/high density lipoprotein (HDL) cholesterol mass rat<5.0 [facility] Hospitalodium [Moles/volume] in Serum or PlasmaOrdered By: Griselda Krause on 14-35-9340Frykqp [Moles/Vol]Sodium [Moles/volume] in Serum or Lqtpxs940-289GuyfiexklTrumbull Memorial HospitalThyroid Stimulating Hormoneon 88-70-8314PFH Qn1.03 m[IU]/LNormal0.45-5.33The [facility] Physician GroupComment on above:Result Comment: PERFORMED BY: [address] [place] [address] PATHOLOGIST ENERGY CONSERVATION REPRESENTATIVE RAKEL LAZARO M.D.Performed By: #### CBC, HEPATIC, BMP, LIPASE #### [facility] [address] [place] [address] USAThyrotropin [Units/volume] in Serum or PlasmaOrdered By: Griselda Krause on 77-84-3403GWC QnThyrotropin [Units/volume] in Serum or Plasma 0.45-5.33[facility] HospitalTriglyceride [Mass/volume] in Serum or PlasmaOrdered By: Griselda Krause on 15-95-3558Wdomhsoxvljc [Mass/Vol]Triglyceride [Mass/volume] in Serum or Plasma0-149[facility] HospitalComment on above:TRIG ATP III CLASSIFICATIONTRIG less than 150 mg/dL NormalTRIG 150-199 mg/dL Borderline highTRIG 200-500 mg/dL High TRIG greater than 500 mg/dL Very highStandard traceable to the Center for Disease Conrtrol and Prevention (CDC) test method.Urea nitrogen [Mass/volume] in Serum or PlasmaOrdered By: Griselda Krause on 23-34-2958Ojso nitrogen [Mass/Vol]Urea nitrogen [Mass/volume] in Serum or Plasma7-[facility] HospitalWBC Auto (Bld) [#/Vol]Ordered By: Griselda Krause on 93-50-6817GKS (Bld) [#/Vol]Leukocytes [#/volume] in Blood by Automated count4.1-10.5FCleveland Clinic Mentor HospitalAlanine aminotransferase [Enzymatic activity/volume] in Serum or PlasmaOrdered By: PROVIDER TEMP on 17-51-6277TJN [Catalytic activity/Vol]Alanine aminotransferase [Enzymatic activity/volume] in Serum or Plasma7-52[facility] HospitalAlbumin [Mass/volume] in Serum or Plasma by Bromocresol green (BCG) dye binding metho Ordered By: PROVIDER TEMP on 41-27-8881Gawanxp BCG dye [Mass/Vol]Albumin [Mass/volume] in Serum or Plasma by Bromocresol green (BCG) dye binding metho 3.5-5.7FCleveland Clinic Mentor HospitalAlkaline phosphatase [Enzymatic activity/volume] in Serum or PlasmaOrdered By: PROVIDER TEMP on 28-66-1868OMC [Catalytic activity/Vol]Alkaline phosphatase [Enzymatic activity/volume] in Serum or Dqajlf71-265BxtxumlhsTrumbull Memorial HospitalAppearance of UrineOrdered By: Manisha Negron on 68-76-2894Xqbhfvxrql (U)Urine appearanceCleJ.W. Ruby Memorial HospitalAspartate aminotransferase [Enzymatic activity/volume] in Serum or PlasmaOrdered By: PROVIDER TEMP on 54-20-6571YOP [Catalytic activity/Vol]Aspartate aminotransferase [Enzymatic activity/volume] in Serum or GigvtmZlo08-28HsmowlwaeTrumbull Memorial HospitalBacteria [Presence] in Urine by AutomatedOrdered By: Manisha Negron on 26-87-3557Qrckmeby Auto Ql (U)Bacteria [Presence] in Urine by AutomatedNone SeenTrumbull Memorial HospitalBasic Metabolic Panelon 28-18-6536Mdwor gap [Moles/Vol]8.5 mmol/LNormal6.0-15.0The [facility] Physician GroupComment on above:Performed By: #### CBC, HEPATIC, BMP, LIPASE #### [facility] [address] [place] [address] USACalcium [Mass/Vol]9.5 mg/dLNormal8.6-10.3The [facility] Physician GroupComment on above:Performed By: #### CBC, HEPATIC, BMP, LIPASE #### [facility] [address] [place] [address] USAChloride [Moles/Vol]104 mmol/XGqvexu73-321Qee [facility] Physician GroupComment on above:Performed By: #### CBC, HEPATIC, BMP, LIPASE #### [facility] [address] [place] [id number] USACO2 [Moles/Vol]28.3 mmol/HMufqls13.0-31.0The [facility] Physician GroupComment on above:Performed By: #### CBC, HEPATIC, BMP, LIPASE #### [facility] [address] [place] [address] USACreatinine [Mass/Vol]0.82 mg/dLNormal0.70-1.30The [facility] Physician GroupComment on above:Performed By: #### CBC, HEPATIC, BMP, LIPASE #### [facility] [address] [place] [address] USACreatinine Clr Calc Pezenknu67.52NormalThe [facility] Physician GroupComment on above:Performed By: #### CBC, HEPATIC, BMP, LIPASE #### [facility] [address] [place] [address] USAGFR/1.73 sq M.predicted MDRD (S/P/Bld) [Vol rate/Area] mL/min/{1.73_m2}NormalThe [facility] Physician GroupComment on above:Performed By: #### CBC, HEPATIC, BMP, LIPASE #### [facility] [address] [place] [address] USAGlucose [Mass/Vol]86 mg/oBDklitt95-235Iqj [facility] Physician GroupComment on above:Result Comment: Random Glucose Reference Range is dependent on time and content of last meal. Glucose of more than 200 mg/dL in a nonstressed, ambulatory subject supports the diagnosis of Diabetes Mellitus. ADA recommended reference rangePerformed By: #### CBC, HEPATIC, BMP, LIPASE #### [facility] [address] [place] [address] USAPotassium [Moles/Vol]4.8 mmol/LNormal3.5-5.1The [facility] Physician GroupComment on above:Performed By: #### CBC, HEPATIC, BMP, LIPASE #### [facility] [address] [place] [address] USASodium [Moles/Vol]136 mmol/TKyizta640-072Cto [facility] Physician GroupComment on above:Performed By: #### CBC, HEPATIC, BMP, LIPASE #### [facility] [address] [place] [address] USAUrea nitrogen [Mass/Vol]9 mg/dLNormal7-25The [facility] Physician GroupComment on above:Performed By: #### CBC, HEPATIC, BMP, LIPASE #### [facility] [address] [place] [address] USABasophils Auto (Bld) [#/Vol]Ordered By: PROVIDER TEMP on 40-37-4139Qmsahmlwy (Bld) [#/Vol]Automated basophil count0.0-0.2FCleveland Clinic Mentor HospitalBasophils/100 WBC Auto (Bld)Ordered By: PROVIDER TEMP on 58-71-7035Qlzpnvzfy/100 WBC (Bld)Automated basophil %.[facility] HospitalBilirubin Test strip Ql (U)Ordered By: Manisha Negron on 10-06-2024 Bilirubin Ql (U)Bilirubin.total [Presence] in Urine by Test stripNegative [facility] HospitalBilirubin.direct [Mass/volume] in Serum or PlasmaOrdered By: PROVIDER TEMP on 13-39-0223Qpqiryshn.direct [Mass/Vol] Bilirubin.direct [Mass/volume] in Serum or Plasma0.03-0.18FCleveland Clinic Mentor HospitalBilirubin.total [Mass/volume] in Serum or PlasmaOrdered By: PROVIDER TEMP on 07-90-0478Niwzmtddy [Mass/Vol]Bilirubin.total [Mass/volume] in Serum or Plasma0.3-1.0[facility] HospitalCT abdomen pelvis w conon 56-62-5857JX abdomen pelvis w [facility] [place] [address] CT Scan Report Signed Patient: Shantel Melendez MR#: [id number] : 1960 Acct:[id number] Age/Sex: 63 / M ADM Date: 10/06/24 Loc: ER Room: Type: [facility] ER Attending Dr: Copies to: Manisha [...] Dorothy Eubanks M.D.10/06/2024 4:08 PM Dictation Location: [place] [address] Transcribed By: [facility] 10/06/24 1608 Dictated By: Dorothy Eubanks MD 10/06/24 1556 Signed By: 10/06/24 1608[facility] Physician GroupCT soft tissue neck w [facility] 97-19-8653AX soft tissue neck w [facility] Main Reading [address] [place] [address] CT Scan Report Signed Patient: Shantel Melendez MR#: [id number] : 1960 Acct:[id number] Age/Sex: 63 / M ADM Date: 10/06/24 Loc: ER Room: Type: [facility] ER Attending Dr: Copies to: Manisha [...] Dorothy Eubanks M.D.10/06/2024 3:56 PM Dictation Location: [place] [address] Transcribed By: [facility] 10/06/24 1556 Dictated By: Dorothy Eubanks MD 10/06/24 1551 Signed By: 10/06/24 1556[facility] Physician GroupCalcium [Mass/volume] in Serum or PlasmaOrdered By: PROVIDER TEMP on 97-29-4785Dimpdro [Mass/Vol]Calcium [Mass/volume] in Serum or Plasma8.6-10.3FCleveland Clinic Mentor HospitalCarbon dioxide, total [Moles/volume] in Serum or PlasmaOrdered By: PROVIDER TEMP on 49-02-5637US4 [Moles/Vol]Carbon dioxide, total [Moles/volume] in Serum or Plasma 21.0-31.0[facility] HospitalChloride [Moles/volume] in Serum or PlasmaOrdered By: PROVIDER TEMP on 78-35-3763Cglshfkw [Moles/Vol]Chloride [Moles/volume] in Serum or Ocpnrx27-766VwrereouxTrumbull Memorial HospitalColor Auto (U)Ordered By: Manisha Negron on 40-46-7446Wgopg (U)Color of Urine by Auto YellowTrumbull Memorial HospitalComplete Blood Count Auto Diffon 70-15-0478Nbdmdeehb (Bld) [#/Vol]0.1 10*3/uLNormal0.0-0.2The [facility] Physician GroupComment on above:Result Comment: PERFORMED BY: [place] [address] PATHOLOGIST ENERGY CONSERVATION REPRESENTATIVE RAKEL LAZARO M.D.Performed By: #### CBC, HEPATIC, BMP, LIPASE #### [place] [address] USABasophils/100 WBC (Bld)1.1 %Normal.The [facility] Physician GroupComment on above:Performed By: #### CBC, HEPATIC, BMP, LIPASE #### [facility] [address] [place] [address] USAEosinophils (Bld) [#/Vol]0.1 10*3/uLNormal0.0-0.45The [facility]ician GroupComment on above:Performed By: #### CBC, HEPATIC, BMP, LIPASE #### [place] [address] USAEosinophils/100 WBC (Bld)0.9 %Normal.The [facility] Physician GroupComment on above:Performed By: #### CBC, HEPATIC, BMP, LIPASE #### [place] [address] USAErythrocyte distribution width (RBC) [Ratio]13.7 %Normal 12.0-14.8The [facility] Physician GroupComment on above:Performed By: #### CBC, HEPATIC, BMP, LIPASE #### [place] [address] USAHematocrit (Bld) [Volume fraction]37.0 %Low38.8-50.0The [facility] Physician GroupComment on above:Performed By: #### CBC, HEPATIC, BMP, LIPASE #### [place] [address] USAHemoglobin (Bld) [Mass/Vol]12.8 g/dLLow13.0-17.0The [facility] Physician GroupComment on above:Performed By: #### CBC, HEPATIC, BMP, LIPASE #### [place] [address] USALymphocytes (Bld) [#/Vol]2.0 10*3/uLNormal1.00-4.8The [facility]ician GroupComment on above:Performed By: #### CBC, HEPATIC, BMP, LIPASE #### [place] [address] USALymphocytes/100 WBC (Bld)28.2 %Normal.The [facility] Physician GroupComment on above:Performed By: #### CBC, HEPATIC, BMP, LIPASE #### [place] [address] USAMCH (RBC) [Entitic mass]32.0 koCjpnif92.5-35.2The [facility] Physician GroupComment on above:Performed By: #### CBC, HEPATIC, BMP, LIPASE #### [place] [address] USAMCV (RBC) [Entitic vol]92.6 tSTlrbkk00.5-101The [facility] Physician GroupComment on above:Performed By: #### CBC, HEPATIC, BMP, LIPASE #### [place] [address] USAMean Corpuscular HGB Conc34.6 g/qCXstrry91.5-35.6The [facility] Physician GroupComment on above:Performed By: #### CBC, HEPATIC, BMP, LIPASE #### [place] [address] USAMonocytes (Bld) [#/Vol]0.4 10*3/uLNormal0.0-0.8The [facility] Physician GroupComment on above:Performed By: #### CBC, HEPATIC, BMP, LIPASE #### [place] [address] USAMonocytes/100 WBC (Bld)17.04 %Normal0.00-20.00The [facility] Physician GroupComment on above:Performed By: #### CBC, HEPATIC, BMP, LIPASE #### [place] [address] USAMonocytes/100 WBC (Bld)5.4 %Normal.The [facility] Physician GroupComment on above:Performed By: #### CBC, HEPATIC, BMP, LIPASE #### [place] [address] USANeutrophils (Bld) [#/Vol]4.7 10*3/uLNormal1.8-7.7The [facility] Physician GroupComment on above:Performed By: #### CBC, HEPATIC, BMP, LIPASE #### [place] [address] USANeutrophils/100 WBC (Bld)64.4 %Normal.The [facility] Physician GroupComment on above:Performed By: #### CBC, HEPATIC, BMP, LIPASE #### [place] [address] USANRBC%0.1 /100{WBC}Normal0-0.5The [facility] Comment on above:Performed By: #### CBC, HEPATIC, BMP, LIPASE #### [place] [address] USAPlatelet mean volume (Bld) [Entitic vol]8.4 fLNormal 6.6-10.1The [facility] Physician GroupComment on above:Performed By: #### CBC, HEPATIC, BMP, LIPASE #### [place] [address] USAPlatelets (Bld) [#/Vol]357 10*3/fEJntply038-900Pih [facility] Physician GroupComment on above:Performed By: #### CBC, HEPATIC, BMP, LIPASE #### [address] [place] [address] USARBC (Bld) [#/Vol]3.99 10*6/uLNormal3.90-5.60The [facility] Physician GroupComment on above:Performed By: #### CBC, HEPATIC, BMP, LIPASE #### [place] [address] USAWBC (Bld) [#/Vol]7.2 10*3/uLNormal4.1-10.5The [facility] Physician GroupComment on above:Performed By: #### CBC, HEPATIC, BMP, LIPASE #### [place] [address] USACreatinine [Mass/volume] in Serum or PlasmaOrdered By: PROVIDER TEMP on 69-90-1729Daeigftlwg [Mass/Vol]Creatinine [Mass/volume] in Serum or Plasma0.70-1.30[facility] HospitalDipstick and Microscopicon 91-30-4556Qbedxyrwtu (U)ClearNormalClearBaptist Medical Center Physician GroupComment on above:Order Comment: Name Collection Type:: Clean-Voided MidstreamPerformed By: #### CBC, HEPATIC, BMP, LIPASE #### [place] [address] USABacteria,UrineNone SeenNormalNone SeenThe [facility] Physician GroupComment on above:Order Comment: Name Collection Type:: Clean- Voided MidstreamPerformed By: #### CBC, HEPATIC, BMP, LIPASE #### [place] [address] USABilirubin,UrineNegativeNormalNegativeThe [facility] Physician GroupComment on above:Order Comment: Name Collection Type:: Clean- Voided MidstreamPerformed By: #### CBC, HEPATIC, BMP, LIPASE #### [place] [address] USAColor (U)YellowNormalYellowBaptist Medical Center Physician Group Comment on above:Order Comment: Name Collection Type:: Clean-Voided Midstream Performed By: #### CBC, HEPATIC, BMP, LIPASE #### [address] [place] [address] USAGlucose Ql (U)NormalNormalNormalThe [facility] Physician GroupComment on above:Order Comment: Name Collection Type:: Clean-Voided MidstreamPerformed By: #### CBC, HEPATIC, BMP, LIPASE #### [place] [address] USAHyaline Casts,UrineNoneNormal0-8The [facility] Physician GroupComment on above:Order Comment: Name Collection Type:: Clean-Voided MidstreamPerformed By: #### CBC, HEPATIC, BMP, LIPASE #### [place] [address] USAKetones Ql (U)NegativeNormalNegativeBaptist Medical Center Physician GroupComment on above:Order Comment: Name Collection Type:: Clean- Voided MidstreamPerformed By: #### CBC, HEPATIC, BMP, LIPASE #### [place] [address] USALeukocyte esterase Test strip Ql (U)NegativeNormalNegative The [facility] Physician GroupComment on above:Order Comment: Name Collection Type:: Clean-Voided MidstreamPerformed By: #### CBC, HEPATIC, BMP, LIPASE #### [place] [address] USAMucus,UrineRareNormalThe [facility] Physician GroupComment on above:Order Comment: Name Collection Type:: Clean-Voided MidstreamResult Comment: PERFORMED BY: [place] [address] PATHOLOGIST ENERGY CONSERVATION REPRESENTATIVE RAKEL LAZARO M.D.Performed By: #### CBC, HEPATIC, BMP, LIPASE #### [place] [address] USANitrite,UrineNegativeNormalNegativeBaptist Medical Center Physician GroupComment on above:Order Comment: Name Collection Type:: Clean-Voided MidstreamPerformed By: #### CBC, HEPATIC, BMP, LIPASE #### [place] [address] USAOccult Blood,UrineTraceHighNegativeThe [facility] Physician GroupComment on above:Order Comment: Name Collection Type:: Clean-Voided MidstreamResult Comment: PERFORMED BY: [place] [address] PATHOLOGIST ENERGY CONSERVATION REPRESENTATIVE RAKEL LAZARO M.D.Performed By: #### CBC, HEPATIC, BMP, LIPASE #### [place] [address] USApH (U)5.5 [pH]Normal5.0-9.0The [facility] Comment on above:Order Comment: Name Collection Type:: Clean-Voided Midstream Performed By: #### CBC, HEPATIC, BMP, LIPASE #### [place] [address] USAProtein,UrineNegativeNormalNegativeThe [facility] Physician GroupComment on above:Order Comment: Name Collection Type:: Clean-Voided MidstreamPerformed By: #### CBC, HEPATIC, BMP, LIPASE #### [place] [address] USARBC,Opycl9-1Ojedbi4-1Jkv [facility] Physician GroupComment on above:Order Comment: Name Collection Type:: Clean-Voided MidstreamPerformed By: #### CBC, HEPATIC, BMP, LIPASE #### [place] [address] USASpecificy Manito,Urine>1.798Aczw9.001-1.030The [facility] Physician GroupComment on above:Order Comment: Name Collection Type:: Clean- Voided MidstreamPerformed By: #### CBC, HEPATIC, BMP, LIPASE #### [place] [address] USASquamous Epithelial Cell,Lvcdx7-5Yygadm9-6Ifv [facility] Physician GroupComment on above:Order Comment: Name Collection Type:: Clean- Voided MidstreamPerformed By: #### CBC, HEPATIC, BMP, LIPASE #### [place] [address] USAUrobilinogen,UrineNormalNormalNormalThe [facility] Physician GroupComment on above:Order Comment: Name Collection Type:: Clean- Voided MidstreamPerformed By: #### CBC, HEPATIC, BMP, LIPASE #### [facility] [address] [id number] USAWBC,Jyefz3-7Nobqsg1-5Zbh [facility] Physician GroupComment on above:Order Comment: Name Collection Type:: Clean-Voided MidstreamPerformed By: #### CBC, HEPATIC, BMP, LIPASE #### [facility] [address] [id number] USAECG 12 lead ECGon 60-09-1379IRO 12 lead ECGMERCY [facility] Main Reading [address] [place] [address] Electrocardiograph Report Signed Patient: Shantel Melendez MR#: [id number] : 1960 Acct:[id number] Age/Sex: 63 / M ADM Date: 10/06/24 Loc: ER Room: Type: [facility] ER Attending Dr: Ordering Provider: Manisha [...] now present Confirmed by Duke Kaufman DO ([id number]) on 10/06/2024 7:36:01 PM Referred By: Electronically Signed By: Duke Kaufman DO Transcribed By: MUS Signed By Duke Kaufman DO 5 1936[facility] Physician GroupEosinophils Auto (Bld) [#/Vol]Ordered By: PROVIDER TEMP on 18-22-0442Onkbbslklrp (Bld) [#/Vol]Automated eosinophil count0.0-0.45[facility] HospitalEosinophils/100 WBC Auto (Bld) Ordered By: PROVIDER TEMP on 90-57-0352Ifzruposptp/100 WBC (Bld)Automated eosinophil %.[facility] HospitalEpithelial cells.squamous [#/area] in Urine sediment by Automated countOrdered By: Manisha Negron on 10-06-2024 Epithelial cells.squamous Auto (Urine sed) [#/Area]Epithelial cells.squamous [#/area] in Urine sediment by Automated count0-2FCleveland Clinic Mentor HospitalErythrocyte distribution width Auto (RBC) [Ratio]Ordered By: PROVIDER TEMP on 68-87-5768Cysdojpikes distribution width (RBC) [Ratio]Erythrocyte distribution width [Ratio] by Automated count12.0-14.8[facility] HospitalErythrocytes [#/area] in Urine sediment by Automated countOrdered By: Manisha Negron on 05-10-8991CHP Auto (Urine sed) [#/Area]Erythrocytes [#/area] in Urine sediment by Automated count0-4FCleveland Clinic Mentor HospitalGlobulin Calc (S) [Mass/Vol]Ordered By: PROVIDER TEMP on 06-14-2443Rhhdtqjn (S) [Mass/Vol]Serum globulin measurement by calculation (mass/volume)[facility] HospitalGlucose [Mass/volume] in Serum or PlasmaOrdered By: PROVIDER TEMP on 62-54-5630Vzbqctz [Mass/Vol]Glucose [Mass/volume] in Serum or Hsgnpf08-262VlwkudqicTrumbull Memorial HospitalComment on above:ADA recommended reference rangeRandom Glucose Reference Range is dependent on time and content of last meal. Glucose of more than 200 mg/dL in a nonstressed, ambulatory subject supports the diagnosisof Diabetes Mellitus.Glucose [Mass/volume] in Urine by Test stripOrdered By: Manisha Negron on 34-34-0817Flynper Test strip (U) [Mass/Vol]Glucose [Mass/volume] in Urine by Test stripNormalTrumbull Memorial HospitalHematocrit Auto (Bld) [Volume fraction]Ordered By: PROVIDER TEMP on 19-06-4610Ysxjqisdfw (Bld) [Volume fraction]Hematocrit [Volume Fraction] of Blood by Automated xaakgPlh93.8-50.0[facility] HospitalHemoglobin Test strip Ql (U)Ordered By: Manisha Negron on 10-06-2024 Hemoglobin Ql (U)Hemoglobin [Presence] in Urine by Test stripHighNegative [facility] HospitalHemoglobin [Mass/volume] in BloodOrdered By: AMAN SAMUELS on 08-53-3726Ufoelremxy (Bld) [Mass/Vol]Hemoglobin [Mass/volume] in LrnrgOaw67.0-17.0[facility] HospitalHepatic Panelon 10-06-2024 Albumin [Mass/Vol]3.6 g/dLNormal3.5-5.7The [facility] Physician GroupComment on above:Performed By: #### CBC, HEPATIC, BMP, LIPASE #### [facility] [address] [place] [address] USAAlbumin/Globulin [Mass ratio]1.4 {ratio}NormalThe [facility] Physician [facility] CenterComment on above:Performed By: #### CBC, HEPATIC, BMP, LIPASE #### [facility] [address] [place] [address] USAALP [Catalytic activity/Vol]63 U/KUckgxt54-546Prs [facility] Physician GroupComment on above:Performed By: #### CBC, HEPATIC, BMP, LIPASE #### [facility] [address] [place] [address] USAALT [Catalytic activity/Vol]7 U/LNormal7-52The [facility] Physician [facility] CenterComment on above:Performed By: #### CBC, HEPATIC, BMP, LIPASE #### [facility] [address] [id number] USAAST [Catalytic activity/Vol]8 U/NDha72-02Nlz [facility] Physician GroupComment on above:Performed By: #### CBC, HEPATIC, BMP, LIPASE #### [facility] [address] [place] [address] USABilirubin [Mass/Vol]0.6 mg/dLNormal0.3-1.0The [facility] Physician GroupComment on above:Performed By: #### CBC, HEPATIC, BMP, LIPASE #### [facility] [address] [place] [address] USABilirubin,Indirect0.5 mg/dLNormalThe [facility] Physician GroupComment on above:Performed By: #### CBC, HEPATIC, BMP, LIPASE #### [facility] [address] [place] [address] USABilirubin.indirect [Mass/Vol]0.10 mg/dLNormal0.03-0.18The [facility] Physician GroupComment on above:Performed By: #### CBC, HEPATIC, BMP, LIPASE #### [facility] [address] [place] [address] USAGlobulin (S) [Mass/Vol]2.5 g/dLNoFormerly [facility] Physician GroupComment on above:Performed By: #### CBC, HEPATIC, BMP, LIPASE #### [facility] [address] [place] [address] USAProtein [Mass/Vol]6.1 g/dLLow6.4-8.9The [facility] Physician GroupComment on above:Performed By: #### CBC, HEPATIC, BMP, LIPASE #### [facility] [address] [place] [address] USAHyaline casts [#/area] in Urine sediment by Automated countOrdered By: Manisha Negron on 18-63-9877Rcryzpf casts Auto (Urine sed) [#/Area]Hyaline casts [#/area] in Urine sediment by Automated count0-8[facility] HospitalKetones Test strip Ql (U)Ordered By: Manisha Negron on 11-53-8323Rregcns Ql (U)Ketones [Presence] in Urine by Test stripNegative [facility] HospitalLeukocyte esterase [Presence] in Urine by Test stripOrdered By: Manisha Negron on 59-92-4542Bavaabjiw esterase Test strip Ql (U)Leukocyte esterase [Presence] in Urine by Test stripNegativeTrumbull Memorial HospitalLeukocytes [#/area] in Urine sediment by Automated count Ordered By: Manisha Negron on 36-81-8990KNV Auto (Urine sed) [#/Area]Leukocytes [#/area] in Urine sediment by Automated count0-4FCleveland Clinic Mentor HospitalLeukocytes [#/volume] corrected for nucleated erythrocytes in Blood by Automated counOrdered By: AMAN TEMP on 21-15-1330VSF corrected for nucl RBC Auto (Bld) [#/Vol]Leukocytes [#/volume] corrected for nucleated erythrocytes in Blood by Automated coun4.1-10.5FCleveland Clinic Mentor HospitalLipaseon 88-50-8111Ptyadg [Catalytic activity/Vol]11.0 U/CNiqtjg89.0-82.0The [facility] Physician GroupComment on above:Result Comment: PERFORMED BY: [facility] [address] [place] [address] PATHOLOGIST ENERGY CONSERVATION REPRESENTATIVE RAKEL LAZARO M.D.Performed By: #### CBC, HEPATIC, BMP, LIPASE #### [facility] [address] [place] [address] USALipase [Enzymatic activity/volume] in Serum or Plasma Ordered By: PROVIDER TEMP on 18-21-1654Iaaykh [Catalytic activity/Vol]Lipase [Enzymatic activity/volume] in Serum or Tqhpgy89.0-82.0[facility] HospitalLymphocytes Auto (Bld) [#/Vol]Ordered By: PROVIDER TEMP on 71-68-0642Fyzllslccae (Bld) [#/Vol]Lymphocytes [#/volume] in Blood by Automated count1.00-4.8[facility] HospitalLymphocytes/100 WBC Auto (Bld) Ordered By: PROVIDER TEMP on 14-71-6541Iutwnlvxbom/100 WBC (Bld)Lymphocytes/100 leukocytes in Blood by Automated count.[facility] CenterH Auto (RBC) [Entitic mass]Ordered By: PROVIDER TEMP on 87-93-6566AKO (RBC) [Entitic mass]MCH [Entitic mass] by Automated count27.5-35.2FCleveland Clinic Mentor HospitalMCHC Auto (RBC) [Mass/Vol]Ordered By: PROVIDER TEMP on 05-81-0031DIGW (RBC) [Mass/Vol]MCHC [Mass/volume] by Automated count32.5-35.6FCleveland Clinic Mentor HospitalMCV Auto (RBC) [Entitic vol]Ordered By: PROVIDER TEMP on 18-27-8714UBO (RBC) [Entitic vol]MCV [Entitic volume] by Automated count83.5-101 [facility] HospitalMonocyte distribution width [Entitic volume] in Blood by AutomatedOrdered By: PROVIDER TEMP on 95-45-4355Vfkvkxlk distribution width Auto (Bld) [Entitic vol]Monocyte distribution width [Entitic volume] in Blood by Automated0.00-20.00[facility] HospitalMonocytes Auto (Bld) [#/Vol]Ordered By: PROVIDER TEMP on 29-70-9346Ckleapvvz (Bld) [#/Vol] Automated blood monocyte count0.0-0.8[facility] Monocytes/100 WBC Auto (Bld)Ordered By: PROVIDER TEMP on 71-47-1504Lvyehgiaw/100 WBC (Bld)Automated monocyte %.[facility] HospitalMucus [Presence] in Urine by AutomatedOrdered By: Manisha Negron on 47-46-5496Xazqk Auto Ql (U) Mucus [Presence] in Urine by AutomatedTrumbull Memorial Hospital Neutrophils Auto (Bld) [#/Vol]Ordered By: PROVIDER TEMP on 83-50-9572Mzsgrpoodev (Bld) [#/Vol]Neutrophils [#/volume] in Blood by Automated count1.8-7.7FCleveland Clinic Mentor HospitalNeutrophils/100 WBC Auto (Bld)Ordered By: PROVIDER TEMP on 19-96-5709Xqklkwufpuw/100 WBC (Bld)Automated neutrophil %.[facility] HospitalNitrite Test strip Ql (U)Ordered By: Manisha Negron on 10-06-2024 Nitrite Ql (U)Nitrite [Presence] in Urine by Test stripNegativeTrumbull Memorial HospitalNo Panel InformationOrdered By: PROVIDER TEMP on 03-79-8856Ekrzactxu GFR (CKD-EPI)> 60.0 mL/MinTrumbull Memorial Hospital Pharmacy Creatinine Clearance (Chem91.52[facility] Nucleated erythrocytes [Presence] in Blood by Automated countOrdered By: PROVIDER TEMP on 91-80-5838Rblottxwp RBC Auto Ql (Bld)Nucleated erythrocytes [Presence] in Blood by Automated count0-0.5FC[facility] Hospital Platelet mean volume Auto (Bld) [Entitic vol]Ordered By: PROVIDER TEMP on 03-28-8708Krxhqpzf mean volume (Bld) [Entitic vol]Platelet mean volume [Entitic volume] in Blood by Automated count6.6-10.1FC[facility] Hospital Platelets Auto (Bld) [#/Vol]Ordered By: PROVIDER TEMP on 01-71-4052Cjvrzwtke (Bld) [#/Vol]Platelets [#/volume] in Blood by Automated isiww703-945PwbqzkxnpTrumbull Memorial HospitalPotassium [Moles/volume] in Serum or PlasmaOrdered By: PROVIDER TEMP on 72-79-5008Xwmoykvot [Moles/Vol]Potassium [Moles/volume] in Serum or Plasma3.5-5.1FCleveland Clinic Mentor HospitalProtein Test strip (U) [Mass/Vol]Ordered By: Manisha Negron on 84-85-1085Eaojfoe (U) [Mass/Vol]Protein [Mass/volume] in Urine by Test stripNegativeTrumbull Memorial Hospital Protein [Mass/volume] in Serum or PlasmaOrdered By: PROVIDER TEMP on 10-06-2024 Protein [Mass/Vol]Protein [Mass/volume] in Serum or PlasmaLow6.4-8.9Tr[facility] HospitalRBC Auto (Bld) [#/Vol]Ordered By: PROVIDER TEMP on 48-04-9342PEW (Bld) [#/Vol]Erythrocytes [#/volume] in Blood by Automated count 3.90-5.60[facility] Mentor Hospitalerum or plasma albumin/globulin mass ratioOrdered By: PROVIDER TEMP on 26-04-1775Lovlved/Globulin [Mass ratio]Serum or plasma albumin/globulin mass ratioCleveland Clinic Mentor Hospitalerum or plasma anion gap determinationOrdered By: PROVIDER TEMP on 07-40-8945Nbinc gap [Moles/Vol]Serum or plasma anion gap determination6.0-15.0[facility] Mentor Hospitalerum or plasma non-glucuronidated bilirubin measurement (mass/volume)Ordered By: PROVIDER TEMP on 31-05-4817Evuaydafq.indirect [Mass/Vol]Serum or plasma non-glucuronidated bilirubin measurement (mass/volume) [facility] Ment[facility] Hospitalodium [Moles/volume] in Serum or PlasmaOrdered By: PROVIDER TEMP on 80-72-0248Gbxmna [Moles/Vol]Sodium [Moles/volume] in Serum or Wrljcf332-298WnrgiylbyCleveland Clinic Mentor Hospitalpecific gravity Test strip (U) [Rel density]Ordered By: Manisha Negron on 95-35-3730Lftdjesr gravity (U) [Rel density]Specific gravity of Urine by Test stripHigh1.001-1.030[facility] HospitalUrea nitrogen [Mass/volume] in Serum or PlasmaOrdered By: PROVIDER TEMP on 01-11-4561Lppe nitrogen [Mass/Vol]Urea nitrogen [Mass/volume] in Serum or Plasma7-25Tr[facility] Memorial HospitalUrobilinogen Test strip (U) [Mass/Vol]Ordered By: Manisha Negron on 67-07-1992Ctcyfewgedqf (U) [Mass/Vol]Urobilinogen [Mass/volume] in Urine by Test stripNormalTrumbull Memorial HospitalWBC Auto (Bld) [#/Vol]Ordered By: PROVIDER TEMP on 40-72-0362JME (Bld) [#/Vol]Leukocytes [#/volume] in Blood by Automated count 4.1-10.5FCleveland Clinic Mentor HospitalpH Test strip (U)Ordered By: Manisha Negron on 58-64-3447gK (U)pH of Urine by Test strip5.0-9.0[facility] HospitalB-Type Natriuretic Peptideon 03-97-0602Xivojhsaxir peptide B (Bld) [Mass/Vol]43.0 pg/mLNormal5-100The [facility] Physician GroupComment on above: Result Comment: PERFORMED BY: [address] [place] [address] PATHOLOGIST ENERGY CONSERVATION REPRESENTATIVE RAKEL LAZARO M.D.Performed By: #### HS TROP #### [facility] [address] [place] [address] USABasic Metabolic Panelon 65-71-6319Fljww gap [Moles/Vol] 11.2 mmol/LNormal6.0-15.0The [facility] Physician GroupComment on above:Performed By: #### CBC, BMP, HS TROP, BNP #### [facility] [address] [place] [address] USACalcium [Mass/Vol]9.3 mg/dLNormal8.6-10.3The [facility] Physician GroupComment on above:Performed By: #### CBC, BMP, HS TROP, BNP #### [place] [address] USAChloride [Moles/Vol]100 mmol/ENokaut78-449Ajx [facility] Physician GroupComment on above:Performed By: #### CBC, BMP, HS TROP, BNP #### [place] [address] USACO2 [Moles/Vol]26.0 mmol/WTgbrtr37.0-31.0The [facility] Physician GroupComment on above:Performed By: #### CBC, BMP, HS TROP, BNP #### [place] [address] USACreatinine [Mass/Vol]0.91 mg/dLNormal0.70-1.30The [facility] Physician GroupComment on above:Performed By: #### CBC, BMP, HS TROP, BNP #### [place] [address] USACreatinine Clr Calc Jkgndiyh22.47NormalThe [facility] Physician GroupComment on above:Result Comment: PERFORMED BY: [place] [address] PATHOLOGIST ENERGY CONSERVATION REPRESENTATIVE RAKEL LAZARO M.D.Performed By: #### CBC, BMP, HS TROP, BNP #### [place] [address] USAGFR/1.73 sq M.predicted MDRD (S/P/Bld) [Vol rate/Area] mL/min/{1.73_m2}NormalThe [facility] Physician GroupComment on above:Performed By: #### CBC, BMP, HS TROP, BNP #### [place] [address] USAGlucose [Mass/Vol]100 mg/dVQfkvrb48-275Vjt [facility] Physician GroupComment on above:Result Comment: Random Glucose Reference Range is dependent on time and content of last meal. Glucose of more than 200 mg/dL in a nonstressed, ambulatory subject supports the diagnosis of Diabetes Mellitus. ADA recommended reference rangePerformed By: #### CBC, BMP, HS TROP, BNP #### [place] [address] USAPotassium [Moles/Vol]4.2 mmol/LNormal3.5-5.1The [facility] Physician GroupComment on above:Performed By: #### CBC, BMP, HS TROP, BNP #### [place] [address] USASodium [Moles/Vol]133 mmol/DNjn575-498Cyd [facility] Physician GroupComment on above:Performed By: #### CBC, BMP, HS TROP, BNP #### [place] [address] USAUrea nitrogen [Mass/Vol]18 mg/dLNormal7-25The [facility] Physician GroupComment on above:Performed By: #### CBC, BMP, HS TROP, BNP #### [place] [address] USABasophils Auto (Bld) [#/Vol]Ordered By: Daisy Paul on 93-30-7223Llbnbhxgn (Bld) [#/Vol]Automated basophil count0.0-0.2FCleveland Clinic Mentor HospitalBasophils/100 WBC Auto (Bld)Ordered By: Daisy Paul on 55-22-6744Qakkubdqh/100 WBC (Bld)Automated basophil %.[facility] HospitalBioFire Not Detectedon 71-68-0954CwnElck Not DetectedNot detected NormalNot DetecteThe [facility] Physician GroupComment on above:Result Comment: This is a duplicate RP2.1 COVID (PCR) result to be used for statistical tracking purpose only. PERFORMED BY: [place] [address] PATHOLOGIST ENERGY CONSERVATION REPRESENTATIVE RAKEL LAZARO M.D.Performed By: #### HS TROP #### [place] [address] USACOVID-19 Detected/Not DetectedOrdered By: Daisy Paul on 29-64-0871WTED-CoV-2 (COVID-19) RNA JER+non-probe Ql (Nph)Not detectedNot DetectCoshocton Regional Medical CenterComment on above:This is a duplicate RP2.1 COVID (PCR) result to be used for statistical tracking purpose only. Calcium [Mass/volume] in Serum or PlasmaOrdered By: Daisy Paul on 09-20-2024 Calcium [Mass/Vol]Calcium [Mass/volume] in Serum or Plasma8.6-10.3FC[facility] Clinic Mentor HospitalCarbon dioxide, total [Moles/volume] in Serum or Plasma Ordered By: Daisy Paul on 86-67-6414CB9 [Moles/Vol]Carbon dioxide, total [Moles/volume] in Serum or Gmtnbl66.0-31.0[facility] Chloride [Moles/volume] in Serum or PlasmaOrdered By: Daisy Paul on 16-41-4914Yixxyfep [Moles/Vol]Chloride [Moles/volume] in Serum or Luwlpn34-295 [facility] HospitalComplete Blood Count Auto Diffon 09-20-2024 Basophils (Bld) [#/Vol]0.0 10*3/uLNormal0.0-0.2[facility] Comment on above:Result Comment: PERFORMED BY: [place] [address] PATHOLOGIST ENERGY CONSERVATION REPRESENTATIVE RAKEL LAZARO M.D.Performed By: #### CBC, BMP, HS TROP, BNP #### [place] [address] USABasophils/100 WBC (Bld)0.5 %Normal.The [facility] Physician GroupComment on above:Performed By: #### CBC, BMP, HS TROP, BNP #### [place] [address] USAEosinophils (Bld) [#/Vol]0.0 10*3/uLNormal0.0-0.45The [facility] Physician GroupComment on above:Performed By: #### CBC, BMP, HS TROP, BNP #### [place] [address] USAEosinophils/100 WBC (Bld)0.1 %Normal.[facility] Physician GroupComment on above:Performed By: #### CBC, BMP, HS TROP, BNP #### [place] [address] USAErythrocyte distribution width (RBC) [Ratio]13.9 %Normal 12.0-14.8The [facility] Physician GroupComment on above:Performed By: #### CBC, BMP, HS TROP, BNP #### [place] [address] USAHematocrit (Bld) [Volume fraction]41.1 %Imokqt61.8-50.0The [facility] Physician GroupComment on above:Performed By: #### CBC, BMP, HS TROP, BNP #### [place] [address] USAHemoglobin (Bld) [Mass/Vol]14.1 g/mZAsfgxm07.0-17.0The [facility] Physician GroupComment on above:Performed By: #### CBC, BMP, HS TROP, BNP #### [place] [address] USALymphocytes (Bld) [#/Vol]1.1 10*3/uLNormal1.00-4.8The [facility]ician GroupComment on above:Performed By: #### CBC, BMP, HS TROP, BNP #### [place] [address] USALymphocytes/100 WBC (Bld)11.5 %Normal.The [facility] Physician GroupComment on above:Performed By: #### CBC, BMP, HS TROP, BNP #### [place] [address] USAMCH (RBC) [Entitic mass]32.1 iePbffcp76.5-35.2The [facility] Physician GroupComment on above:Performed By: #### CBC, BMP, HS TROP, BNP #### [place] [address] USAMCV (RBC) [Entitic vol]93.6 jPAwuggn67.5-101The [facility] Physician GroupComment on above:Performed By: #### CBC, BMP, HS TROP, BNP #### [facility] [address] [place] [address] USAMean Corpuscular HGB Conc34.3 g/mTJmkuyg47.5-35.6The [facility] Physician GroupComment on above:Performed By: #### CBC, BMP, HS TROP, BNP #### [facility] [address] [place] [address] USAMonocytes (Bld) [#/Vol]0.5 10*3/uLNormal0.0-0.8The [facility] Physician GroupComment on above:Performed By: #### CBC, BMP, HS TROP, BNP #### [facility] [address] [place] [address] USAMonocytes/100 WBC (Bld)23.57 %High0.00-20.00The [facility] Physician GroupComment on above:Result Comment: For adults in ED, MDW > 20.0 may be associated with a higher risk of sepsis during the first 12 hrs of hospital admissionPerformed By: #### CBC, BMP, HS TROP, BNP #### [facility] [address] [place] [address] USAMonocytes/100 WBC (Bld)5.4 %Normal.[facility] Physician GroupComment on above:Performed By: #### CBC, BMP, HS TROP, BNP #### [facility] [address] [place] [address] USANeutrophils (Bld) [#/Vol]8.1 10*3/uLHigh1.8-7.7The [facility]ician GroupComment on above:Performed By: #### CBC, BMP, HS TROP, BNP #### [facility] [address] [place] [address] USANeutrophils/100 WBC (Bld)82.5 %Normal.The [facility] Physician GroupComment on above:Performed By: #### CBC, BMP, HS TROP, BNP #### [facility] [address] [place] [address] USANRBC%0.1 /100{WBC}Normal0-0.5The [facility] Comment on above:Performed By: #### CBC, BMP, HS TROP, BNP #### [facility] [address] [place] [address] USAPlatelet mean volume (Bld) [Entitic vol]8.9 fLNormal 6.6-10.1The [facility] Physician GroupComment on above:Performed By: #### CBC, BMP, HS TROP, BNP #### [facility] [address] [place] [address] USAPlatelets (Bld) [#/Vol]215 10*3/kKIpstru401-868Flh [facility] Physician GroupComment on above:Performed By: #### CBC, BMP, HS TROP, BNP #### [place] [address] USARBC (Bld) [#/Vol]4.39 10*6/uLNormal3.90-5.60The [facility] Physician GroupComment on above:Performed By: #### CBC, BMP, HS TROP, BNP #### [place] [address] USAWBC (Bld) [#/Vol]9.8 10*3/uLNormal4.1-10.5The [facility] Physician GroupComment on above:Performed By: #### CBC, BMP, HS TROP, BNP #### [place] [address] USACreatinine [Mass/volume] in Serum or PlasmaOrdered By: Daisy Paul on 20-36-0821Rfvnsewnvq [Mass/Vol]Creatinine [Mass/volume] in Serum or Plasma0.70-1.30[facility] HospitalECG 12 lead ECGon 95-53-6512WZG 12 lead ECGMERCY [facility] Main Reading [address] [place] [address] Electrocardiograph Report Signed Patient: Shantel Melendez MR#: [id number] : 1960 Acct:[id number] Age/Sex: 63 / M ADM Date: 09/20/24 Loc: ER Room: Type: [facility] ER Attending Dr: Ordering Provider: Daisy [...] wave abnormality Confirmed by Daisy Paul MD ([id number]) on 09/20/2024 7:46:03 PM Referred By: Electronically Signed By: Daisy Paul MD Transcribed By: MUS Signed By Daisy Paul MD 11/[address] [place] [address] Physician GroupEosinophils Auto (Bld) [#/Vol] Ordered By: Daisy Paul on 40-42-2816Evdiaibgsvi (Bld) [#/Vol]Automated eosinophil count0.0-0.45[facility] HospitalEosinophils/100 WBC Auto (Bld)Ordered By: Daisy Paul on 87-99-1741Eoslfbjoddn/100 WBC (Bld) Automated eosinophil %.[facility] HospitalErythrocyte distribution width Auto (RBC) [Ratio]Ordered By: Daisy Paul on 15-08-3825Vhobreayxur distribution width (RBC) [Ratio]Erythrocyte distribution width [Ratio] by Automated count12.0-14.8[facility] HospitalGlucose [Mass/volume] in Serum or PlasmaOrdered By: Daisy Paul on 14-26-6735Hzarqlw [Mass/Vol] Glucose [Mass/volume] in Serum or Kxdsjm55-680ZflpmlekdTrumbull Memorial Hospital Comment on above:ADA recommended reference rangeRandom Glucose Reference Range is dependent on time and content of last meal. Glucose of more than 200 mg/dL in a nonstressed, ambulatory subject supports the diagnosisof Diabetes Mellitus. Hematocrit Auto (Bld) [Volume fraction]Ordered By: Daisy Paul on 09-20-2024 Hematocrit (Bld) [Volume fraction]Hematocrit [Volume Fraction] of Blood by Automated count38.8-50.0[facility] HospitalHemoglobin [Mass/volume] in BloodOrdered By: Daisy Paul on 93-76-1705Gjmdzuhttg (Bld) [Mass/Vol]Hemoglobin [Mass/volume] in Blood13.0-17.0[facility] HospitalLeukocytes [#/volume] corrected for nucleated erythrocytes in Blood by Automated counOrdered By: Daisy Paul on 72-94-8079JQM corrected for nucl RBC Auto (Bld) [#/Vol]Leukocytes [#/volume] corrected for nucleated erythrocytes in Blood by Automated coun4.1-10.5FCleveland Clinic Mentor HospitalLymphocytes Auto (Bld) [#/Vol]Ordered By: Daisy Paul on 92-91-8485Svzytxjwxtz (Bld) [#/Vol]Lymphocytes [#/volume] in Blood by Automated count1.00-4.8[facility] HospitalLymphocytes/100 WBC Auto (Bld)Ordered By: Daisy Paul on 36-35-2962Gizwadjjhzi/100 WBC (Bld)Lymphocytes/100 leukocytes in Blood by Automated count.[facility] HospitalMCH Auto (RBC) [Entitic mass] Ordered By: Daisy Paul on 12-28-8442BEX (RBC) [Entitic mass]MCH [Entitic mass] by Automated count27.5-35.2FCleveland Clinic Mentor HospitalMCHC Auto (RBC) [Mass/Vol]Ordered By: Daisy Paul on 81-87-0852ARWQ (RBC) [Mass/Vol] MCHC [Mass/volume] by Automated count32.5-35.6FCleveland Clinic [facility] Hospital MCV Auto (RBC) [Entitic vol]Ordered By: Daisy Paul on 20-35-8581KUM (RBC) [Entitic vol]MCV [Entitic volume] by Automated count83.5-101[facility] HospitalMonocyte distribution width [Entitic volume] in Blood by Automated Ordered By: Daisy Paul on 65-17-4733Irvcgrcy distribution width Auto (Bld) [Entitic vol]Monocyte distribution width [Entitic volume] in Blood by Automated High0.00-20.00[facility] HospitalComment on above:For adults in ED, MDW > 20.0 may be associated with a higher risk of sepsis during the first 12 hrs of hospital admissionMonocytes Auto (Bld) [#/Vol]Ordered By: Daisy Paul on 36-55-1509Slhcdorxj (Bld) [#/Vol]Automated blood monocyte count 0.0-0.8[facility] HospitalMonocytes/100 WBC Auto (Bld)Ordered By: Daisy Paul on 09-73-0148Pjoyjdgml/100 WBC (Bld)Automated monocyte %. [facility] HospitalNatriuretic peptide B [Mass/Vol]Ordered By: Daisy Paul on 82-73-3235Wnfskrdfmim peptide B (Bld) [Mass/Vol]BNP ser/plas 5-100[facility] HospitalNeutrophils Auto (Bld) [#/Vol]Ordered By: Daisy Paul on 86-75-9072Dtpntmilvvy (Bld) [#/Vol]Neutrophils [#/volume] in Blood by Automated countHigh1.8-7.7FC[facility] Hospital Neutrophils/100 WBC Auto (Bld)Ordered By: Daisy Paul on 09-20-2024 Neutrophils/100 WBC (Bld)Automated neutrophil %.[facility] HospitalNo Panel InformationOrdered By: Daisy Paul on 83-47-3550Ojvtmgslw GFR (CKD-EPI)> 60.0 mL/MinTrumbull Memorial HospitalPharmacy Creatinine Clearance (Chem82.47[facility] HospitalNucleated erythrocytes [Presence] in Blood by Automated countOrdered By: Daisy Paul on 09-20-2024 Nucleated RBC Auto Ql (Bld)Nucleated erythrocytes [Presence] in Blood by Automated count0-0.5FCleveland Clinic Mentor HospitalPlatelet mean volume Auto (Bld) [Entitic vol]Ordered By: Daisy Paul on 75-06-0440Abdohuyt mean volume (Bld) [Entitic vol]Platelet mean volume [Entitic volume] in Blood by Automated count6.6-10.1FCleveland Clinic Mentor HospitalPlatelets Auto (Bld) [#/Vol] Ordered By: Daisy Paul on 42-78-9588Qozcghuek (Bld) [#/Vol]Platelets [#/volume] in Blood by Automated -851JkvkvnsdeTrumbull Memorial Hospital Potassium [Moles/volume] in Serum or PlasmaOrdered By: Daisy Paul on 73-90-1257Rlheeoszv [Moles/Vol]Potassium [Moles/volume] in Serum or Plasma 3.5-5.1FCleveland Clinic Mentor HospitalRB Auto (Bld) [#/Vol]Ordered By: Daisy Paul on 46-18-1805LYE (Bld) [#/Vol]Erythrocytes [#/volume] in Blood by Automated count3.90-5.60[facility] HospitalRespiratory (Upper) Panel, PCRon 99-28-2834Xwqfrfqbjnb (Upper) Panel, PCRAdenovirus Not detected Bordetella parapertussis [...] Influenza A H3 Blank Space PERFORMED BY: [address] [address] PATHOLOGIST ENERGY CONSERVATION REPRESENTATIVE RAKEL LAZARO M.D.NormalBaptist Medical Center Physician GroupComment on above: Performed By: #### HS TROP #### [address] [address] USARespiratory pathogens DNA and RNA panel - Nasopharynx by JER with non-probe detectionOrdered By: Daisy Paul on 14-24-1952Bcjoejxchzd pathogens DNA and RNA panel JER+non-probe (Nph)Respiratory pathogens DNA and RNA panel - Nasopharynx by JER with non-probe detectionCleveland Clinic Mentor Hospitalerum or plasma anion gap determinationOrdered By: Daisy Paul on 39-26-2896Gobay gap [Moles/Vol]Serum or plasma anion gap determination6.0-15.0 [facility] Hospitalodium [Moles/volume] in Serum or PlasmaOrdered By: Daisy Paul on 42-68-0492Vewbhy [Moles/Vol]Sodium [Moles/volume] in Serum or IqhccySdo903-305SjgnzigriTrumbull Memorial HospitalTroponin I High Sensitivityon 14-19-7899Pbkoahyj I High Gxhbsairsqc3Iidrqj7-37Nme [facility] Physician GroupComment on above:Result Comment: The Troponin units of report have been changed to meet the Chest Pain Accreditation requirement, element EC5.M1l2. Troponin units are changed from pg/ml to ng/L. Also, the decimal is removed and results are in whole numbers. PERFORMED BY: [place] [address] PATHOLOGIST ENERGY CONSERVATION REPRESENTATIVE RAKEL LAZARO M.D.Performed By: #### HS TROP #### [place] [address] USATroponin I High Gfxhaifqmnf8Fxnazk0-20Xqn [facility] Physician GroupComment on above:Result Comment: The Troponin units of report have been changed to meet the Chest Pain Accreditation requirement, element EC5.M1l2. Troponin units are changed from pg/ml to ng/L. Also, the decimal is removed and results are in whole numbers. PERFORMED BY: [place] [address] PATHOLOGIST ENERGY CONSERVATION REPRESENTATIVE RAKEL LAZARO M.D.Performed By: #### CBC, BMP, HS TROP, BNP #### [place] [address] USATroponin I.cardiac [Mass/volume] in Serum or Plasma by Detection limit <= 0.01 ng/Ordered By: Daisy Paul on 70-08-9217Wakmssgo I.cardiac DL <= 0.01 ng/mL [Mass/Vol]Troponin I.cardiac [Mass/volume] in Serum or Plasma by Detection limit <= 0.01 ng/0-20[facility] Comment on above:The Troponin units of report have been changed to meet the Chest Pain Accreditation requirement, element EC5.M1l2. Troponin units are changed from pg/ml to ng/L. Also, the decimal is removed and results are in whole numbers.Urea nitrogen [Mass/volume] in Serum or PlasmaOrdered By: Daisy Paul on 69-26-8435Vill nitrogen [Mass/Vol]Urea nitrogen [Mass/volume] in Serum or Plasma01-09[facility] HospitalWBC Auto (Bld) [#/Vol] Ordered By: Daisy Paul on 90-97-5585NQB (Bld) [#/Vol]Leukocytes [#/volume] in Blood by Automated count4.1-10.5FCleveland Clinic Mentor HospitalX-ray report Ordered By: Gee Hutchins on 19-35-4074Qyvxy reportMERCY [facility] Main [place] [id number] XRay Report Signed Patient: Shantel Melendez MR#: [id number] : 1960 Acct:[id number] Age/Sex: 63 / M ADM Date: 5 Loc: ER Room: Type: [facility] ER Attending Dr: Copies to: Daisy [...] Hutchins MD 09/20/241244 Signed By: 09/20/24 1247 [facility] Work Phone: XR chest 2V*on 13-08-1259TZ chest 2V*[facility] Main Reading [address] [place] [address] XRay Report Signed Patient: Shantel Melendze MR#: [id number] : 1960 Acct:[id number] Age/Sex: 63 / M ADM Date: 09/20/24 Loc: ER Room: Type: [facility] ER Attending Dr: Copies to: Daisy [...] Gee Hutchins MD 09/20/241244 Signed By: 09/20/[address] [place] [address] Physician GroupUS ankle/arm indiceson 09-43-4810KX ankle/arm indicesProMedica Memorial Hospital [facility]ascular [address] [place], [place] [address] Ultrasound Report Signed Patient: Shantel Melendez MR#: [id number] : 1960 Acct:[id number] Age/Sex: 63 / M ADM Date: 09/11/24 Loc: [facility] Room: Type: [facility] CLI Attending Dr: Ruddy Harvey MD [...] Filipe Hess M.D.09/16/2024 2:46 PM Dictation Location: [place] [address] Tech: Agueda Helm Transcribed By: MARISA 09/16/24 1446 Dictated By: Filipe Hess MD 09/16/241444 Signed By: 09/16/[address] [place] [address] Physician GroupX-ray reportOrdered By: Yung Pozo on 54-99-2910Ibeeg reportMERCY HEALTH – THE [facility]EWISH [facility] Main [place] [id number] XRay Report Signed Patient: Shantel Melendez MR#: [id number] : 1960 Acct:[id number] Age/Sex: 63 / M ADM Date: 5 Loc: X Room: Type: [facility] CLI Attending Dr: Solomon Narayanan PA-C [...] Pozo Jr, DO 06/24/242005 Signed By: 06/24/[address] [place], [place] [address]XR cervical spine LAT/FLX/EXTon 53-79-4238QT cervical spine LAT/FLX/EXTMERCY HEALTH – THE [place] [address] XRay Report Signed Patient: Shantel Melendez MR#: [id number] : 1960 Acct:[id number] Age/Sex: 63 / M ADM Date: 06/24/24 Loc: XD Room: Type: [facility] Attending Dr: Solomon Narayanan PA-C [...] Pozo Jr, DO 06/24/242005 Signed By: 06/24/[address] [place] [address] Physician GroupConnecticut Children'S Medical Center metabolic 2000 panelon 42-75-2298Kswuq gap [Moles/Vol]14 mmol/L10 - 20 mmol/[facility] HospitalCalcium [Mass/Vol]9 mg/dL8.6 - 10.6 mg/dLGrand Lake Joint Township District Memorial HospitalChloride [Moles/Vol]103 mmol/L98 - 107 mmol/[facility] HospitalCO2 [Moles/Vol]26 mmol/L21 - 32 mmol/[facility] Creatinine [Mass/Vol]0.86 mg/dL0.50 - 1.30 mg/dLUnUniversity Hospitals Ahuja Medical CentereGFR- PINFUniMercy Health Kings Mills HospitalComment on above: Calculations of estimated GFR are performed using the 2020 CKD-EPI Study Refit equation without therace variable for the IDMS-Traceable creatinine methods. https://jasn.asnjournals.org/content//ASN.9348527048 Glucose [Mass/Vol]159 mg/gYYrkm64 - 99 mg/dLUnUniversity Hospitals Ahuja Medical Center Interpretation and review of laboratory resultsAbnoalUBluffton HospitalPotassium [Moles/Vol]4.5 mmol/L3.5 - 5.3 mmol/[facility] HospitalSodium [Moles/Vol]138 mmol/L136 - 145 mmol/[facility] HospitalUrea nitrogen [Mass/Vol]14 mg/dL6 - 23 mg/dLUnUniversity Hospitals Ahuja Medical CenterUnUniversity Hospitals Ahuja Medical CenterAnion gap [Moles/Vol]14 mmol/LNormal 10-20UnRegional Medical CenterComment on above:Performed By: #### 51691-8 #### TITUS Mercado ([id number]) [facility] ([facility]) [address] [place] [address]Artiouq [Mass/Vol]9.0 mg/dLNormal8.6-10.6UnRegional Medical CenterComment on above:Performed By: #### 11603-5 #### TITUS Mercado (31310) [facility] ([facility]) [address] [place] [address]Sruvfjnx [Moles/Vol]103 mmol/NWwkqye22-129FolmjerrsnRegional Medical CenterComment on above:Performed By: #### 64471-1 #### TITUS Mercado (45045) [facility] ([facility]) [address] [place], [place] [address]LK0 [Moles/Vol]26 mmol/OWexlpw25-68CpzpsejuzzRegional Medical CenterComment on above:Performed By: #### 71134-2 #### TITUS Mercado (14600) [facility] ([facility]) [address] [place] [address]Ftnxfludno [Mass/Vol]0.86 mg/dLNormal0.50-1.30UnRegional Medical CenterComment on above:Performed By: #### 99469-0 #### TITUS Mercado (66108) [facility] ([facility]) [address] [place] [address]IEE/1.73 sq M.predicted MDRD (S/P/Bld) [Vol rate/Area] mL/min/{1.73_m2}Normal>60UnRegional Medical CenterComment on above:Result Comment: Calculations of estimated GFR are performed using the 2020 CKD-EPI Study Refit equation without the race variable for the IDMS-Traceable creatinine methods. https://jasn.asnjournals.org/content//ASN.2632645285Mdybxudpx By: #### 84916-2 #### TITUS Mercado (05215) [facility] ([facility]) [address] [place], [place] [address]Ngdjjiv [Mass/Vol]159 mg/bHTqaj80-75PbhcrwkjjpRegional Medical CenterComment on above:Performed By: #### 94904-8 #### TITUS Mercado (26826) [facility] ([facility]) [address] [place], [place] [address]Auejkeugs [Moles/Vol]4.5 mmol/LNormal3.5-5.3UnRegional Medical CenterComment on above:Performed By: #### 74457-1 #### TITUS Mercado (80445) [facility] ([facility]) [address] [place], [place] [address]Fbtlaj [Moles/Vol]138 mmol/HVhhpgs819-483HcuqvlrpedHolzer Medical Center – JacksonComment on above:Performed By: #### 48809-4 #### TITUS Mercado (11363) [facility] ([facility]) [address] [place], [place] [address]Rsyx nitrogen [Mass/Vol]14 mg/dLNormal6-23Hol[facility] Medical Center – JacksonComment on above:Performed By: #### 95922-6 #### TITUS Mercado (81415) [facility] ([facility]) [address] [place] [address]VSH panel Auto (Bld)on 12-83-5745Egxraetsuzg distribution width (RBC) [Ratio]13.3 %11.5 - 14.5 %[facility] Hematocrit (Bld) [Volume fraction]38 %Low41.0 - 52.0 %[facility] Memorial HospitalHemoglobin (Bld) [Mass/Vol]12.9 g/dLLow13.5 - 17.5 g/dLUnUniversity Hospitals Ahuja Medical CenterInterpretation and review of laboratory resultsAbnormWilson Street HospitalH (RBC) [Entitic mass]31.9 pg26.0 - 34.0 pg [facility] Memorial HospitalMCHC (RBC) [Mass/Vol]33.9 g/dL32.0 - 36.0 g/dL [facility] HospitalV (RBC) [Entitic vol]94 fL80 - 100 fL [facility] HospitalNucleated RBC/100 WBC (Bld) [Ratio]0 % [facility] Memorial HospitalPlatelets (Bld) [#/Vol]221 10*3/[facility] HospitalRBC (Bld) [#/Vol]4.05 10*6/[facility]ettering HealthWBC (Bld) [#/Vol]9.6 10*3/[facility] Memorial HospitalUnUniversity Hospitals Ahuja Medical CenterErythrocyte distribution width (RBC) [Ratio]13.3 %Normal 11.5-14.5UnRegional Medical CenterComment on above:Performed By: #### 99889-6 #### TITUS Mercado (77979) [facility] ([facility]) [address] [place] [address]Ewjnovenjm (Bld) [Volume fraction]38.0 %Low41.0-52.0 [facility] – JacksonComment on above:Performed By: #### 25846-4 #### TITUS Mercado (00996) [facility] ([facility]) [address] [place] [address]Ftkqwraxlk (Bld) [Mass/Vol]12.9 g/dLLow13.5-17.5UnRegional Medical CenterComment on above:Performed By: #### 35142-6 #### TITUS Mercado (31391) [facility] ([facility]) [address] [place] [address]DER (RBC) [Entitic mass]31.9 vhDrsekr19.0-34.0UnRegional Medical CenterComment on above:Performed By: #### 05129-7 #### TITUS Mercado (45473) [facility] ([facility]) [address] [place] [address]DQBE (RBC) [Mass/Vol]33.9 g/nQEqtbdt50.0-36.0UnRegional Medical CenterComment on above:Performed By: #### 32482-4 #### TITUS Mercado (92513) [facility] ([facility]) [address] [place] [address]PWO (RBC) [Entitic vol]94 kIIstnwq05-658VcczlslqmtRegional Medical CenterComment on above:Performed By: #### 16908-3 #### TITUS Mercado (66865) [facility] ([facility]) [address] [place] [address]Kwirfqbcw RBC/100 WBC (Bld) [Ratio]0.0 /100 WBCsNormal0.0-0.0 [facility] – JacksonComment on above:Performed By: #### 79470-6 #### TITUS Mercado (26638) [facility] ([facility]) [address] [place], [place] [address]Wlfivgaio (Bld) [#/Vol]221 x10*3/bJFhgasm532-474FtckzehpsrRegional Medical CenterComment on above:Performed By: #### 55391-2 #### TITUS Mercado (95364) [facility] ([facility]) [address] [place], [place] [address]QSR (Bld) [#/Vol]4.05 x10*6/uLLow4.50-5.90UnRegional Medical CenterComment on above:Performed By: #### 82611-0 #### TITUS PAYANMOTZER L (30212) [facility] ([facility]) [address] [place], [place] [address]PYC (Bld) [#/Vol]9.6 x10*3/uLNormal4.4-11.3UnRegional Medical CenterComment on above:Performed By: #### 90392-4 #### TITUS Mercado (53108) [facility] ([facility]) [address] [place] [address]GD CERVICAL SPINE 2-3 VIEWSon 18-59-9876BO CERVICAL SPINE 2-3 VIEWSInterpreted By: Shubham Eubanks, STUDY: Cervical spine dated 04/10/2024. INDICATION: Signs/Symptoms:Post surgery COMPARISON: None. ACCESSION NUMBER(S): [id number] ORDERING CLINICIAN: DORETHA HARRIS TECHNIQUE: Two views [...] Shubham Eubanks 04/10/2024 10:05 AM Dictation workstation: [id number] Health Akron CampusComment on above:Order Comment: Please have patient uprightXR Cervical spine 2 or 3 Viewson 17-74-3425Awndpjfb and degenerative change as above without osseous injury evident. MACRO: None Signed by: Shubham Eubanks 04/10/2024 10:05 AM Dictation workstation: [id number] MMODALInterpreted By: Shubham Eubanks, STUDY: Cervical spine dated 04/10/2024. INDICATION: Signs/Symptoms:Post surgery COMPARISON: None. ACCESSION NUMBER(S): [id number] ORDERING CLINICIAN: DORETHA HARRIS TECHNIQUE: Two views [...] INDICATION: Signs/Symptoms:Post surgery COMPARISON: None. ACCESSION NUMBER(S): [id number] ORDERING CLINICIAN: DORETHA HARRIS TECHNIQUE: Two views [...] Shubham Eubanks 04/10/2024 10:05 AM Dictation workstation: [id number] [facility] Work Phone: Radiology Study observation (narrative)[facility] Work Phone: XR Cervical spine 2 or 3 ViewsOrdered By: Shubham Eubanks on 75-68-9788HbhdwboggaGrand [facility] Work Phone: Blood type and Indirect antibody screen panel (Bld)on 79-25-2335OLN group Nom (Bld)AUnUniversity Hospitals Ahuja Medical CenterBlood group antibody screen QlNegativeUnUniversity Hospitals Ahuja Medical CenterD Ag Ql (Bld)Positive [facility] HospitalUnUniversity Hospitals Ahuja Medical CenterABO group Nom (Bld)ANormCincinnati Shriners HospitalComment on above:Order Comment: As needed for scheduled for aortic, liver, cardiac, or thoracic surgery OR hgb<7.5mg/dl and no active type and screen.Performed By: #### 38296-3 #### TITUS Mercado ([id number]) [facility] ([facility]) [address] [place] [address] 96302Wpbet group antibody screen QlNegativeNoParkview Health Montpelier HospitalComment on above:Order Comment: As needed for scheduled for aortic, liver, cardiac, or thoracic surgery OR hgb<7.5mg/dl and no active type and screen.Performed By: #### 72166-5 #### TITUS Mercado ([id number]) [facility] ([facility]) [address] [place] [address] 50725Z Ag Ql (Bld)PositiveSumma Health Akron CampusComment on above:Order Comment: As needed for scheduled for aortic, liver, cardiac, or thoracic surgery OR hgb<7.5mg/dl and no active type and screen.Performed By: #### 39266-0 #### TITUS Mercado ([id number]) [facility] ([facility]) [address] [place] [address] 02208VS FLUORO IMAGES NO CHARGEon 18-56-9172CZ FLUORO IMAGES NO CHARGEThese images are not reportable by radiology and will not be interpreted by Radiologists.NormalHolzer Medical Center – JacksonGas and Carbon monoxide and Electrolytes panel (BldA)on 67-34-4351Mkxcv gap 4 (BldA) [Moles/Vol]8LowGrand Lake Joint Township District Memorial HospitalBase excess Calc (Bld) [Moles/Vol]-1.9000 mmol/L-2.0 - 3.0 mmol/[facility] Calcium.ionized (BldA) [Moles/Vol]1.24 mmol/L1.10 - 1.33 mmol/[facility] HospitalChloride (BldA) [Moles/Vol]104 mmol/L98 - 107 mmol/L [facility] HospitalCO2 (Bld) [Partial pressure]46 mm[Hg]High [facility] HospitalGlucose [Mass/Vol]132 mg/wYWyuo06 - 99 mg/dL [facility] HospitalHCO3 (Bld) [Moles/Vol]24.3 mmol/L22.0 - 26.0 mmol/[facility] HospitalHematocrit Est (Bld) [Volume fraction]39 %Low41.0 - 52.0 %[facility] HospitalHemoglobin (Bld) [Mass/Vol] 12.9 g/dLLow13.5 - 17.5 g/dLGrand Lake Joint Township District Memorial HospitalInhaled oxygen kypfrozoibkdi84 %[facility] HospitalInterpretation and review of laboratory resultsAbnormalUniversElkhart General HospitalLactate (BldA) [Moles/Vol]0.7 mmol/L0.4 - 2.0 mmol/[facility] HospitalOxygen (Bld) [Partial pressure]156 mm[Hg]HighUnUniversity Hospitals Ahuja Medical Center Oxyhemoglobin (BldA) [Mass fraction]95 %94.0 - 98.0 %[facility] HospitalpH (Bld)7.33 [pH]Low7.38 - 7.42 pHUnUniversity Hospitals Ahuja Medical Center Potassium (BldA) [Moles/Vol]4.5 mmol/L3.5 - 5.3 mmol/[facility] HospitalSodium (BldA) [Moles/Vol]132 mmol/BDkz029 - 145 mmol/[facility] HospitalUnUniversity Hospitals Ahuja Medical CenterAnion gap 4 (BldA) [Moles/Vol]8 mmo/GDnh99-26MltlwqsfgcRegional Medical CenterComment on above:Performed By: #### 50108-7 #### TITUS Mercado ([id number]) [facility] ([facility]) [id number] [place] [address] 27853Cfan excess Calc (Bld) [Moles/Vol]-1.9000 mmol/LNormal -2.0-3.0Holzer Medical Center – JacksonComment on above:Performed By: #### 20509-9 #### TITUS Mercado (47778) [facility] ([facility]) [address] [place] [address] 56141Cvdmrks.ionized (BldA) [Moles/Vol]1.24 mmol/LNormal1.10-1.33 [facility] Medical Center – JacksonComment on above:Performed By: #### 20782-2 #### TITUS Mercado (20746) [facility] ([facility]) [address] [place] [address] 94351Nbosfrlp (BldA) [Moles/Vol]104 mmol/LUpftjw12-368YyqfjfvyyhRegional Medical CenterComment on above:Performed By: #### 81552-8 #### TITUS Mercado (05661) [facility] ([facility]) [address] [place] [address] 01310ZI4 (Bld) [Partial pressure]46 mm IiXjkx69-32IhddgdastvHolzer Medical Center – JacksonComment on above:Performed By: #### 39916-1 #### TITUS Mercado (78754) [facility] ([facility]) [address] [place] [address] 14558Inyercw [Mass/Vol]132 mg/nPAmyi84-93AndmvbvdjnHolzer Medical Center – JacksonComment on above:Performed By: #### 30185-7 #### TITUS Mercado (71497) [facility] ([facility]) [address] [place] [address] 02677INH7 (Bld) [Moles/Vol]24.3 mmol/XRkqqll70.0-26.0Holzer Medical Center – JacksonComment on above:Performed By: #### 88858-1 #### TITUS Mercado (73567) [facility] ([facility]) [address] [place] [address] 85513Weaevjdyhi Est (Bld) [Volume fraction]39.0 %Low41.0-52.0 Hol[facility] Medical Center – JacksonComment on above:Performed By: #### 44448-2 #### TITUS Mercado (74497) [facility] ([facility]) [address] [place] [address] 74438Crapilhqop (Bld) [Mass/Vol]12.9 g/dLLow13.5-17.5UnRegional Medical CenterComment on above:Performed By: #### 60182-9 #### TITUS Mercado (79731) [facility] ([facility]) [address] [place] [address] 20657Jdhlnpa oxygen mwboygtyjhlpf50 %NormalUnRegional Medical CenterComment on above:Performed By: #### 09964-2 #### TITUS Mercado (64125) [facility] ([facility]) [address] [place] [address] 97630Tqknlvw (BldA) [Moles/Vol]0.7 mmol/LNormal0.4-2.0UnRegional Medical CenterComment on above:Performed By: #### 83977-5 #### TITUS Mercado ([id number]) [facility] ([facility]) [address] [place] [address] 57788Qaxyip (Bld) [Partial pressure]156 mm KeIehz04-64DdewbbviqeRegional Medical CenterComment on above:Performed By: #### 22609-6 #### TITUS Mercado (56570) [facility] ([facility]) [address] [place] [address] 18820Hvijfttfqemgm (BldA) [Mass fraction]95.0 %Wqjqri13.0-98.0 [facility] Center – JacksonComment on above:Performed By: #### 11711-9 #### TITUS Mercado (17923) [facility] ([facility]) [address] [place] [address] 72758kI (Bld)7.33 [pH]Low7.38-7.42Holzer Medical Center – JacksonComment on above:Performed By: #### 12823-9 #### TITUS Mercado (68155) [facility] ([facility]) [address] [place] [address] 02507Tpyhwnvpw (BldA) [Moles/Vol]4.5 mmol/LNormal3.5-5.3Holzer Medical Center – JacksonComment on above:Performed By: #### 06177-9 #### TITUS Mercado (57036) [facility] ([facility]) [address] [place] [address] 38741Ngknjq (BldA) [Moles/Vol]132 mmol/JHnb946-314RgkkfzzybnHolzer Medical Center – JacksonComment on above:Performed By: #### 65980-4 #### TITUS Mercado (01813) [facility] ([facility]) [address] [place] [address] 77746VM tomography Unspecified body regionon 03-32-7333Yewtm images are not reportable by radiology and will not be interpreted by Radiologists.IMAGINGCT TRANSFER OF OUTSIDE FILMSon 95-44-5119KD TRANSFER OF OUTSIDE FILMSOutside images for comparison or treatment purposes, not interpreted by Radiologists.NormalWestern Reserve Hospitaltudy Interpretation of outside studyon 01-35-5241Vfhmxhf images for comparison or treatment purposes, not interpreted by Radiologists.IMAGINGBlood type and Indirect antibody screen panel (Bld)on 10-88-7755WEP group Nom (Bld)ANoParkview Health Montpelier HospitalComment on above:Performed By: #### 13079-0 #### TITUS Mercado (33076) [facility] ([facility]) [address] [place] [address] 88253Xwdyt group antibody screen QlNegativeNoParkview Health Montpelier HospitalComment on above:Performed By: #### 82534-8 #### TITUS Mercado (74930) [facility] ([facility]) [address] [place] [address], [place] [address]J Ag Ql (Bld)[facility] VA Medical CenterComment on above:Performed By: #### 31269-3 #### TITUS Mercado (68074) [facility] ([facility]) [address] [place], [place] [address]OBLV BONE DENSITYon 71-71-5092AJUY BONE DENSITYInterpreted By: Ruddy Lopez, STUDY: DEXA BONE DENSITY02/13/2024 10:50 am INDICATION: Signs/Symptoms:r/o osteoporosis, NEED AXIAL SKELETON IMAGES.. The patient is a 63 y/o year old M. ,M54.12 Radiculopathy, cervical region COMPARISON: None. ACCESSION NUMBER(S): [id number] ORDERING CLINICIAN: DORETHA HARRIS TECHNIQUE: DEXA BONE [...] Ruddy Lopez 12/29/2024 8:09 AM Dictation workstation: [id number]h Doctors HospitalDXA Skeletal system Views for bone densityon 63-90-0139Rkibs images are not reportable by radiology and will not be interpreted by Radiologists.IMAGINGXR CERVICAL SPINE COMPLETE 6+ VIEWSon 64-87-2924DH CERVICAL SPINE COMPLETE 6+ VIEWSInterpreted By: Romulo Medrano, STUDY: XR CERVICAL SPINE COMPLETE 6+ VIEWS; ; 02/13/2024 11:10 am INDICATION: Signs/Symptoms:r/o instability, assess alignment. ,M54.12 Radiculopathy, cervical region COMPARISON: None. ACCESSION NUMBER(S): [id number] ORDERING CLINICIAN: DORETHA HARRIS FINDINGS: C-spine, 6 [...] Romulo Medrano 02/19/2024 6:35 PM Dictation workstation: [id number]th Doctors HospitalComment on above:Order Comment: Please obtain with flexion and extensionXR CHEST 2 VIEWSon 65-39-5517QF CHEST 2 VIEWSInterpreted By: Romulo Medrano, STUDY: XR CHEST 2 VIEWS; 02/13/2024 11:10 am INDICATION: Signs/Symptoms:Preop surgery 02/[address] Steven MD. ,M54.12 Radiculopathy, cervical region,M81.0 Age-related osteoporosis without current pathological fracture COMPARISON: None. ACCESSION NUMBER(S): [id number] ORDERING CLINICIAN: DORETHA HARIRS FINDINGS: CARDIOMEDIASTINAL SILHOUETTE: Cardiomediastinal silhouette is normal in size and configuration. LUNGS: Lungs are clear. ABDOMEN: No remarkable upper abdominal findings. BONES: No acute osseous changes. IMPRESSION: 1. No evidence of acute cardiopulmonary process. MACRO: None Signed by: Romulo Medrano 02/19/2024 6:53 PM Dictation workstation: [id number] County Health CenterEC 12 leadOrdered By: Tobi Rico on 43-31-7101Luvpfs Tkdy27XBT [facility] Work Phone: [phone] Zzgo86rzxyratStlxouhypsGeorgetown Behavioral Hospital Work Phone: [phone] Dgjbxt704 [facility] Work Phone: P Onset90 [facility] Work Phone: PR Qdcvpqky414 [facility] Work Phone: Q Gcyng159 [facility] Work Phone: QRS Pljaw68obsypOcbajzsmqqFisher-[facility] Work Phone: QRS Wzruixyg02 [facility] Work Phone: QT Umemueaq059 [facility] Work Phone: QTC Calculation(Bazett)415 [facility] Work Phone: QTC Mekwdlkgez463 [facility] Work Phone: [phone] [place]-[facility]degBl[facility] Work Phone: [phone] Crgt54iyjjviuWewneiclmwGeorgetown Behavioral Hospital Work Phone: [phone] Hztvpv323 [facility] Work Phone: [phone] Xexj94BIACjsezhihezHarrison Community Hospital Work Phone: [phone] Work Phone: [phone] 12 leadon 41-13-3209Llmdp rhythm with 1st degree AV block Otherwise normal ECG When compared with ECG of 30-JAN-2019 19:26, heart rate decreased Confirmed by Tobi Rico ([id number]) on 02/12/2024 12:20:00 PMTobi Keller MD - 02/12/2024 Sinus rhythm with 1st degree AV block Otherwise normal ECG When compared with ECG of 30-JAN-2019 19:26, heart rate decreased Confirmed by Tobi Rico ([id number]) on 02/12/2024 12:20:00 PM [facility] Work Phone: basic metabolic 2000 panelon 97-88-7137Hhzzv gap [Moles/Vol]13 mmol/AZduaza47-32ClrjhjxvjsRegional Medical Center Comment on above:Performed By: #### 43187-0 #### TITUS Mercado ([id number]) [facility] ([facility]) [address] [place] [address] 60096Szrkinb [Mass/Vol]9.6 mg/dLNormal8.6-10.6Holzer Medical Center – JacksonComment on above:Performed By: #### 83755-2 #### TITUS Mercado (60329) [facility] ([facility]) [address] [place], [place] [address]Pcishoje [Moles/Vol]104 mmol/XTxylqf53-430LgagjwquujRegional Medical CenterComment on above:Performed By: #### 97502-0 #### TITUS Mercado (14541) [facility] ([facility]) [address] [place] [address] 93962WU4 [Moles/Vol]26 mmol/OYqmhql23-64VxqltggbvzRegional Medical CenterComment on above:Performed By: #### 29947-4 #### TITUS Mercado (52622) [facility] ([facility]) [address] [place], [place] [address]Uepjcpldno [Mass/Vol]0.89 mg/dLNormal0.50-1.30UnRegional Medical CenterComment on above:Performed By: #### 02682-7 #### TITUS Mercado (23704) [facility] ([facility]) [address] [place], [place] [address]TZU/1.73 sq M.predicted MDRD (S/P/Bld) [Vol rate/Area] mL/min/{1.73_m2}Normal>60UnRegional Medical CenterComment on above:Result Comment: Calculations of estimated GFR are performed using the 2020 CKD-EPI Study Refit equation without the race variable for the IDMS-Traceable creatinine methods. https://jasn.asnjournals.org/content//ASN.7852839066Oqyttfake By: #### 33672-8 #### TITUS Mercado (60270) [facility] ([facility]) [address] [place] [address] 81414Mbtaync [Mass/Vol]77 mg/iLCnfeto71-26OrgggexkspHolzer Medical Center – JacksonComment on above:Performed By: #### 95950-5 #### TITUS Mercado (59797) [facility] ([facility]) [address] [place] [address] 81287Qtxgequrd [Moles/Vol]4.6 mmol/LNormal3.5-5.3[facility] Center – JacksonComment on above:Performed By: #### 57394-9 #### TITUS Mercado (66871) [facility] ([facility]) [address] [place] [address] 15507Hrqptx [Moles/Vol]138 mmol/VMuxddu950-785IzpdvnlfolRegional Medical CenterComment on above:Performed By: #### 35308-8 #### TITUS Mercado (40209) [facility] ([facility]) [address] [place] [address] 65717Ubmr nitrogen [Mass/Vol]9 mg/dLNormal6-23[facility] Center – JacksonComment on above:Performed By: #### 14339-6 #### TITUS Mercado (82769) [facility] ([facility]) [address] [place] [address] 60716Hnvbq type and Indirect antibody screen panel (Bld)on 73-67-1933EHE group Nom (Bld)ANoalUniCleveland Clinic Avon HospitalComment on above:Performed By: #### 33570-6 #### TITUS Mercado (58918) [facility] ([facility]) [address] [place], [place] [address]Zedbs group antibody screen QlNegativeSumma Health Akron CampusComment on above:Performed By: #### 50883-5 #### TITUS Mercado (79151) [facility] ([facility]) [address] [place], [place] [address]G Ag Ql (Bld)PositiveSumma Health Akron CampusComment on above:Performed By: #### 85079-0 #### TITUS Mercado (38635) [facility] ([facility]) [address] [place], [place] [address]IPX W Auto Differential panel (Bld)on 34-99-9376Yatzgtgqx (Bld) [#/Vol]0.04 x10*3/uLNormal0.00-0.10Hol[facility] Medical Center – JacksonComment on above:Performed By: #### 24414-4 #### TITUS Mercado (65624) [facility] ([facility]) [address] [place], [place] [address]Sgcgxrxlz/100 WBC (Bld)0.8 %Normal0.0-2.0[facility] Center – JacksonComment on above:Performed By: #### 93761-0 #### TITUS Mercado (14651) [facility] ([facility]) [address] [place], [place] [address]Ycdaugusvsq (Bld) [#/Vol]0.05 x10*3/uLNormal0.00-0.70 [facility] – JacksonComment on above:Performed By: #### 18787-0 #### TITUS Mercado (66688) [facility] ([facility]) [address] [place], [place] [address]Hitmdpgyfkh/100 WBC (Bld)1.0 %Normal0.0-6.0[facility] Center – JacksonComment on above:Performed By: #### 26760-4 #### TITUS Mercado (87410) [facility] ([facility]) [address] [place] [address] 66652Swgvncavzxr distribution width (RBC) [Ratio]13.2 %Normal 11.5-14.5UnRegional Medical CenterComment on above:Performed By: #### 97266-9 #### TITUS Mercado (55647) [facility] ([facility]) [address] [place] [address] 61301Fthquiflqu (Bld) [Volume fraction]39.6 %Low41.0-52.0 [facility] – JacksonComment on above:Performed By: #### 66151-9 #### TITUS Mercado (06379) [facility] ([facility]) [address] [place] [address] 92027Ujjbeezvzl (Bld) [Mass/Vol]13.2 g/dLLow13.5-17.5UnRegional Medical CenterComment on above:Performed By: #### 00666-9 #### TITUS Mercado (99212) [facility] ([facility]) [address] [place] [address] 24221Njljpkxk granulocytes (Bld) [#/Vol]0.00 x10*3/uLNormal 0.00-0.70UnRegional Medical CenterComment on above:Performed By: #### 09561-3 #### TITUS Mercado (61583) [facility] ([facility]) [address] [place] [address] 84984Ouctbdjs granulocytes/100 WBC (Bld)0.0 %Normal0.0-0.9 [facility] – JacksonComment on above:Result Comment: Immature Granulocyte Count (IG) includes promyelocytes, myelocytes and metamyelocytes but does not include bands. Percent differential counts (%) should be interpreted in the context of the absolute cell counts (cells/UL). Performed By: #### 34101-1 #### TITUS Mercado (29726) [facility] ([facility]) [address] [place] [address] 56454Nknwrfgkjaa (Bld) [#/Vol]1.74 x10*3/uLNormal1.20-4.80 [facility] – JacksonComment on above:Performed By: #### 93927-3 #### TITUS Mercado (71581) [facility] ([facility]) [address] [place], [place] [address]Narryhsqdzy/100 WBC (Bld)33.1 %Ejibki08.0-44.0UnRegional Medical CenterComment on above:Performed By: #### 65491-1 #### TITUS Mercado (72248) [facility] ([facility]) [address] [place] [address] 68481KJA (RBC) [Entitic mass]31.5 qaVymkuw65.0-34.0UnRegional Medical CenterComment on above:Performed By: #### 00160-5 #### TITUS Mercado (76113) [facility] ([facility]) [address] [place] [address] 19627KNUE (RBC) [Mass/Vol]33.3 g/pPCdhxgw51.0-36.0UnRegional Medical CenterComment on above:Performed By: #### 17875-9 #### TITUS Mercado (83399) [facility] ([facility]) [address] [place] [address] 96468OGN (RBC) [Entitic vol]95 nDIobkzp07-643GiwrghhpcfRegional Medical CenterComment on above:Performed By: #### 66011-8 #### TITUS Mercado (70997) [facility] ([facility]) [address] [place] [address] 53916Zddpgrinc (Bld) [#/Vol]0.30 x10*3/uLNormal0.10-1.00UnRegional Medical CenterComment on above:Performed By: #### 08877-2 #### TITUS Mercado (62668) [facility] ([facility]) [address] [place] [address] 80237Qirgwwvjs/100 WBC (Bld)5.7 %Normal2.0-10.0UnRegional Medical CenterComment on above:Performed By: #### 33308-5 #### TITUS Mercado (45079) [facility] ([facility]) [address] [place] [address] 01851Ozoatbsgigu (Bld) [#/Vol]3.13 x10*3/uLNormal1.20-7.70 [facility] – JacksonComment on above:Result Comment: Percent differential counts (%) should be interpreted in the context of the absolute cell counts (cells/uL).Performed By: #### 37828-6 #### TITUS Mercado (99326) [facility] ([facility]) [address] [place] [address] 97372Udtqtthszxc/100 WBC (Bld)59.4 %Oqwwtg17.0-80.0UnRegional Medical CenterComment on above:Performed By: #### 70650-7 #### TITUS Mercado (03701) [facility] ([facility]) [address] [place] [address] 05454Rmtfljgen RBC/100 WBC (Bld) [Ratio]0.0 /100 WBCsNormal0.0-0.0 [facility] – JacksonComment on above:Performed By: #### 45236-0 #### TITUS Mercado (04888) [facility] ([facility]) [address] [place] [address] 98523Cpbqubxxe (Bld) [#/Vol]271 x10*3/gYQwrgih706-384QaugzrxmwuRegional Medical CenterComment on above:Performed By: #### 08384-6 #### TITUS Mercado (26214) [facility] ([facility]) [address] [place] [address] [id number] (Bld) [#/Vol]4.19 x10*6/uLLow4.50-5.90UnRegional Medical CenterComment on above:Performed By: #### [id number] #### TITUS Mercado ([id number]) [facility] ([facility]) [address] [place], [place] [address]MKA (Bld) [#/Vol]5.3 x10*3/uLNormal4.4-11.3[facility] – JacksonComment on above:Performed By: #### [id number] #### TITUS Mercado ([id number]) [facility] ([facility]) [address] [place], [place] [address]BHV 12-LEADon [id number] 12-LEADVentricular Rate 63 Atrial Rate 63 P-R Interval 268 QRS Duration 74 Q-T Interval 406 QTC Calculation(Bazett) 415 P [place] 58 R [place] -3 T [place] 18 QRS Count 10 Q Onset 224 P Onset 90 P Offset 149 T Offset 427 QTC [place] 412 Diagnosis Sinus rhythm with 1st degree AV block Otherwise normal ECG When compared with ECG of 30-JAN-2019 19:26, heart rate decreased Confirmed by Tobi Rico ([id number]) on 02/12/2024 12:20:[address] Methodist HospitalNICOTINE AND METABOLITES,Son [id number] [Mass/Vol]152 ng/mLNormalHolzer Medical Center – JacksonComment on above: Performed By: #### NI+ME #### ANSELMO [facility] ([facility]) ([id number]) [address] [place], [place] [address]Zvbrlpce [Mass/Vol]6 ng/mLNFisher-Titus Medical CenterComment on above:Result Comment: INTERPRETIVE INFORMATION: [...] developed and its performance characteristics determined by [employer]. It has not been cleared or approved by the [place] Food and Drug Administration. This test was performed in a CLIA certified laboratory and is intended for clinical purposes. Performed By: [facility] [address] [place] [address] Featherer: Benjamin Bullock MD, PhD CLIA Number: [id number] By: #### NI+ME #### [facility] ([facility]) ([id number]) [address] [place], [place] [address]JT and aPTT panel Coag (PPP)on 11-56-3339fZLP Coag (PPP) [Time]33 sFooeqk60-15VxdfggiviyRegional Medical CenterComment on above:Order Comment: The APTT is no longer used for monitoring Unfractionated Heparin Therapy. For monitoring Heparin Therapy, use the Heparin Assay.Performed By: #### 30727-5 #### TITUS Mercado ([id number]) [facility] ([facility]) [address] [place] [address] 86970WQD Coag (PPP) [Relative time]1.3Bxjwaf3.9-1.1UnRegional Medical CenterComment on above:Order Comment: The APTT is no longer used for monitoring Unfractionated Heparin Therapy. For monitoring Heparin Therapy, use the Heparin Assay.Performed By: #### 27359-6 #### TITUS Mercado ([id number]) [facility] ([facility]) [address] [place] [address] 90279OR Coag (PPP) [Time]11.5 sNormal9.8-12.8[facility] – JacksonComment on above:Order Comment: The APTT is no longer used for monitoring Unfractionated Heparin Therapy. For monitoring Heparin Therapy, use the Heparin Assay.Performed By: #### 99479-9 #### TITUS PAYANMOTZSIMI Mercado ([id number]) [facility] ([facility]) [address] [place] [address] 75387Uqvrhlhxomdbfk aureus.methicillin resistant isolateon 94-73-6533ZADL isol Org specific cx Ql (Nose)Test: Staphylococcus aureus/MRSA colonization, Culture Specimen Source: Anterior Nares Specimen Type: Swab Specimen Date: 02/11/2024 150 Result Date: 02/13/2024825 Result Status: Final result Abnormal: No Resulting Lab: [facility] [address] [place] [address] CULTURE No Staphylococcus aureus isolatedNoalUAdena Health SystemComment on above:Performed By: #### 84292-6 #### TITUS Mercado ([id number]) [facility] ([facility]) [address] [place] [address] 30325Ouijezujuh complete W Reflex Culture panel (U)on 02-11-2024 Appearance (U)ClearNormalClearHolzer Medical Center – Jackson Comment on above:Performed By: #### 69668-0 #### TITUS Mercado ([id number]) [facility] ([facility]) [address] [place] [address] 51313Ruvaqzyji (U) [Mass/Vol]NegativeNormalNEGATIVEHolzer Medical Center – JacksonComment on above:Performed By: #### 46631-4 #### TITUS Mercado ([id number]) [facility] ([facility]) [address] [place] [address] 82118Ptrds (U)ColorlessNormalLight-Yellow, Yellow, Dark-Yellow [facility] – JacksonComment on above:Performed By: #### 96208-5 #### TITUS Mercado ([id number]) [facility] ([facility]) [address] [place] [address] 07056Odpmmgz Auto test strip (U) [Mass/Vol]NormalNormalNormal [facility] – JacksonComment on above:Performed By: #### 30401-6 #### TITUS Mercado ([id number]) [facility] ([facility]) [address] [place] [address] 34231Chfrsdc (U) [Mass/Vol]NegativeNormalNEGATIVEHolzer Medical Center – JacksonComment on above:Performed By: #### 03704-4 #### TITUS Mercado ([id number]) [facility] ([facility]) [address] [place] [address] 24585Aubrgnhpd esterase Auto test strip Ql (U)NegativeNormal NEGATIVEUnRegional Medical CenterComment on above:Performed By: #### 49012-5 #### TITUS Mercado ([id number]) [facility] ([facility]) [address] [place] [address] 12695Vutkbpd Auto test strip Ql (U)NegativeNormalNEGATIVE [facility] – JacksonComment on above:Performed By: #### 31082-1 #### TITUS Mercado ([id number]) [facility] ([facility]) [address] [place] [address] 97538fB (U)5.5 [pH]Normal5.0, 5.5, 6.0, 6.5, 7.0, 7.5, 8.0 [facility] – JacksonComment on above:Performed By: #### 37617-2 #### TITUS Mercado ([id number]) [facility] ([facility]) [address] [place] [address] 43999Bhqgook (U) [Mass/Vol]NegativeNormalNEGATIVE, 10 (TRACE), 20 (TRACE)[facility] – JacksonComment on above:Performed By: #### 14251-5 #### TITUS Mercado ([id number]) [facility] ([facility]) [address] [place] [address] 01720PJJ (U) [#/Vol]NegativeNormalNEGATIVEUnRegional Medical CenterComment on above:Performed By: #### 32135-8 #### TITUS Mercado ([id number]) [facility] ([facility]) [address] [place] [address] 73083Kelldveh gravity (U) [Rel density]1.122Fwexim1.005-1.035 [facility] – JacksonComment on above:Performed By: #### 75198-0 #### TITUS Mercado (53726) [facility] ([facility]) [address] [place], [place] [address]Wonbbwdfgrvr (U) [Mass/Vol]NormalNormalNormalUniversity Barnesville HospitalComment on above:Performed By: #### 67700-1 #### TITUS Mercado ([id number]) [facility] ([facility]) [address] [place], [place] [address]PI BRAIN TUMOR PERFUSION PROTOCOL W AND WO IV CONTRASTon 03-46-3572FI BRAIN TUMOR PERFUSION PROTOCOL W AND WO IV CONTRASTInterpreted By: Nate Benavidez, STUDY: MR BRAIN TUMOR PERFUSION PROTOCOL W AND WO IV CONTRAST; 12/13/2023 8:49 am INDICATION: Signs/Symptoms:pontine lesion, imaging surveillance. COMPARISON: None. ACCESSION NUMBER(S): [id number] ORDERING CLINICIAN: SHIMON HEATON TECHNIQUE: Axial diffusion, [...] Nate Benavidez 12/13/2023 9:38 AM Dictation workstation: [id number] Health Akron CampusComment on above:Order Comment: FYI results cc'd to [facility] Brain for new diagnosis tumor WO and W contrast Tristin 55-44-5665Vcugb is again evidence of nonspecific nonenhancing ill-defined [...] Nate Benavidez 12/13/2023 9:38 AM Dictation workstation: [id number] By: Nate Benavidez, STUDY: MR BRAIN TUMOR PERFUSION PROTOCOL W AND WO IV CONTRAST; 12/13/2023 8:49 am INDICATION: Signs/Symptoms:pontine lesion, imaging surveillance. COMPARISON: None. ACCESSION NUMBER(S): [id number] ORDERING CLINICIAN: SHIMON HEATON TECHNIQUE: Axial diffusion, [...] lesion, imaging surveillance. COMPARISON: None. ACCESSION NUMBER(S): [id number] ORDERING CLINICIAN: SHIMON HEATON TECHNIQUE: Axial diffusion, [...] Nate Benavidez 12/13/2023 9:38 AM Dictation workstation: [id number] [facility] Work Phone: Radiology Study observation (narrative)[facility] Work Phone: Brain for new diagnosis tumor WO and W contrast IV Ordered By: Nate Benavidez on 91-75-3928DmnmqglsuyUniversity Hospitals Ahuja Medical Center Work Phone: Basophils Auto (Bld) [#/Vol]on 81-30-3374Vvoplptdn (Bld) [#/Vol]0.04 10*3/uL<0.11Tr[facility] HospitalBasophils/100 WBC Auto (Bld)on 17-87-9461Rgxbititw/100 WBC (Bld)0.5 %[facility] HospitalBlood manual differential comment interpretation narrativeon 10-26-2023 Manual differential comment Curtis (Bld) [Interp]AutoTrumbull Memorial HospitalCBC W Auto Differential panel (Bld)on 51-42-4142Hronutmls (Bld) [#/Vol] 0.04 10*3/uLNINFClemercy health – the jewish hospital ClinicBasophils/100 WBC (Bld)0.5 %[facility] Differential cell count method Nom (Bld)AutoCleveland ClinicEosinophils (Bld) [#/Vol]0.13 10*3/uLNINFPope Army Airfield ClinicEosinophils/100 WBC (Bld)1.5 %[facility] [address] HospitalErythrocyte distribution width (RBC) [Ratio]13.8 %11.5 - 15.0 %[facility] [address] HospitalHematocrit (Bld) [Volume fraction]42.6 %39.0 - 51.0 %[facility] Hemoglobin (Bld) [Mass/Vol]14.4 g/dL13.0 - 17.0 g/dLWilson Street HospitalImmature granulocytes (Bld) [#/Vol]0.03 10*3/uLNINFWilson Street HospitalImmature granulocytes/100 WBC (Bld)0.3 %[facility] [address] HospitalLymphocytes (Bld) [#/Vol]2.18 10*3/uLWilson Street HospitalLymphocytes/100 WBC (Bld)24.8 %[facility] HospitalH (RBC) [Entitic mass]32.0 pg26.0 - 34.0 pgCACMC Healthcare SystemHC (RBC) [Mass/Vol]33.8 g/dL30.5 - 36.0 g/dLSt. Vincent HospitalV (RBC) [Entitic vol]94.7 fL80.0 - 100.0 fLCleveland ClinicMonocytes (Bld) [#/Vol]0.60 10*3/uLNINFWilson Street Hospital Monocytes/100 WBC (Bld)6.8 %[facility] [address] HospitalNeutrophils (Bld) [#/Vol]5.80 10*3/uLWilson [address] HospitalNeutrophils/100 WBC (Bld)66.1 %[address] HospitalNucleated RBC (Bld) [#/Vol]NINFCCleveland Clinic Fairview HospitalNucleated RBC/100 WBC (Bld) [Ratio]0.0 % /[address] HospitalPlatelet mean volume (Bld) [Entitic vol]10.2 fL9.0 - 12.7 fLCCleveland Clinic Fairview HospitalPlatelets (Bld) [#/Vol]314 10*3/[facility] HospitalRBC (Bld) [#/Vol]4.50 10*6/uL4.20 - 6.00 m/[facility] HospitalWBC (Bld) [#/Vol]8.78 10*3/[facility]CT [facility] contrast Tristin 10-26-2023 IMPRESSION: 1. [...] any questions regarding this interpretation, please call [phone]. If you are unable to reach us at the number above, please feel free to contact [facility] eRadiology at [phone].DIVISION OF RADIOLOGY* * *Final Report* * * DATE OF EXAM: Oct 26 2023 10:05AM [facility] 0539 - CT CHEST W IVCON [...] images: No additional findings. DIVISION OF RADIOLOGYProvider, [facility] [place] - 10/26/2023 * * *Final Report* * * DATE OF EXAM: Oct 26 2023 10:05AM [facility] 0539 - CT CHEST W IVCON [...] scarring/discoid atelectasis in the bilateral lower lung mcgrtah. 2. Subcentimeter nodular opacities measuring less than [...] any questions regarding this interpretation, please call [phone]. If you are unable to reach us at the number above, please feel free to contact [facility] eRadiology at [phone]. [facility] Neck W contrast Tristin 56-94-5658OXYFQMIECL: Primary: 1: Expected post-treatment changes in the neck without evidence of recurrent disease in the primary site. Neck: 1: No evidence of abnormal lymph nodes. [email or web address] Transcribe Date/Time: Oct 26 2023 10:15A Dictated by: LIMA LIZ MD This examination was interpreted and the report reviewed and electronically signed by: LIMA LIZ MD on Oct 26 2023 10:35AM EST Thank you for allowing us to participate in the care of your patient. Should there be any questions regarding this interpretation, please call [phone]. 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 Resected T1 N1 base [...] normal. Parotid and submandibular spaces are normal. Wafer Machine Operator spaces appear normal. Infrahyoid Neck: Hypopharynx, [...] are clear of focal consolidation or mass. 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 Resected T1 N1 base [...] normal. Parotid and submandibular spaces are normal. Wafer Machine Operator spaces appear normal. Infrahyoid Neck: Hypopharynx, [...] are clear of focal consolidation or mass. Diamond Polisher (topogram) images: Noncontributory IMPRESSION IMPRESSION: Primary: 1: Expected post-treatment changes in the neck without evidence of recurrent disease in the primary site. Neck: 1: No evidence of abnormal lymph nodes. [email or web address] Transcribe Date/Time: Oct 26 2023 10:15A Dictated by: LIMA LIZ MD This examination was interpreted and the report reviewed and electronically signed by: (more content not included)...[facility]CT Neck W contrast IVOrdered By: [facility] Provider on 38-07-4781Satpiopzt ClinicComprehensive metabolic 2000 panel Ordered By: Pauly Chan on 56-43-5569Qadiuwx [Mass/Vol]4.3 g/dL3.9 - 4.9 g/dL [facility] ClinicALP [Catalytic activity/Vol]75 U/L38 - 113 U/LCleveland Clinic ALT [Catalytic activity/Vol]10 U/L10 - 54 U/LCleveland ClinicAnion gap [Moles/Vol]8 mmol/LLow9 - 18 mmol/LCleveland ClinicAST [Catalytic activity/Vol]9 U/LLow14 - 40 U/LCleveland ClinicBilirubin [Mass/Vol]0.5 mg/dL0.2 - 1.3 mg/dL [facility] HospitalCalcium [Mass/Vol]9.9 mg/dL8.5 - 10.2 mg/dLWilson [address] Hospital Chloride [Moles/Vol]106 mmol/LHigh97 - 105 mmol/LCleveland ClinicCO2 [Moles/Vol] 27 mmol/L22 - 30 mmol/LCleveland ClinicCreatinine [Mass/Vol]1.01 mg/dL0.73 - 1.22 mg/dLWilson Street HospitalGFR/1.73 sq M.predicted among non-blacks MDRD (S/P/Bld) [Vol rate/Area]85 mL/min/{1.73_m2}- PINRegency Hospital Cleveland EastComment on above:Estimated Glomerular Filtration Rate (eGFR) is [...] actual GFR.Glucose [Mass/Vol] 89 mg/dL74 - 99 mg/dLWilson Street HospitalComment on above:The [place] Diabetes Association (ADA) provides guidance for cutoff [...] Standards of Medical Care in Diabetes 2016, [place] [employer] Association. Diabetes Care. 2016.39(Suppl 1). Interpretation and review of laboratory resultsAbnormalCCleveland Clinic Fairview HospitalPotassium [Moles/Vol]4.0 mmol/L3.7 - 5.1 mmol/LCleveland ClinicProtein [Mass/Vol]6.4 g/dL 6.3 - 8.0 g/dLPope Army Airfield ClinicSodium [Moles/Vol]141 mmol/L136 - 144 mmol/L [facility] [address] HospitalUrea nitrogen [Mass/Vol]16 mg/dL9 - 24 mg/dLDiley Ridge Medical Center ClinicEosinophils/100 WBC Auto (Bld)on 06-27-3789Rimkrxqnqgu/100 WBC (Bld)1.5 %[facility] HospitalErythrocyte distribution width Auto (RBC) [Ratio]on 31-62-5756Yxzkpubfhtv distribution width (RBC) [Ratio]13.8 % 11.5-15.0[facility] HospitalHematocrit Auto (Bld) [Volume fraction]on 10-97-0027Vyrlzaqfmd (Bld) [Volume fraction]42.6 %39.0-51.0[facility] HospitalHemoglobin [Mass/volume] in Bloodon 95-93-6737Fpjkojdakp (Bld) [Mass/Vol]14.4 g/dL13.0-17.0[facility] HospitalLaboratory - Chemistry and Chemistry - challengeon 78-54-2309Xmofmbt [Mass/Vol]4.3 g/dL 3.9-4.9[facility] HospitalALP [Catalytic activity/Vol]75 U/L38-113 [facility] HospitalALT [Catalytic activity/Vol]10 U/L10-54 [facility] HospitalAST [Catalytic activity/Vol]9 U/S44-31ApuyzbzcsTrumbull Memorial HospitalBilirubin [Mass/Vol]0.5 mg/dL0.2-1.3FCleveland Clinic Mentor HospitalCalcium [Mass/Vol]9.9 mg/dL8.5-10.2FCleveland Clinic Mentor HospitalChloride [Moles/Vol]106 mmol/L81-349UeoeehjdbTrumbull Memorial HospitalCO2 [Moles/Vol]27 mmol/X19-17IkdqliofiTrumbull Memorial HospitalCreatinine [Mass/Vol] 1.01 mg/dL0.73-1.22[facility] HospitalGlucose [Mass/Vol]89 mg/dL 74-99[facility] HospitalComment on above:The [place] Diabetes Association (ADA) provides guidance for cutoff [...] diabetes.Reference: Standardsof Medical Care in Diabetes 2016, [place] [employer]. Diabetes Care. 2016.39(Suppl 1). Potassium [Moles/Vol]4.0 mmol/L3.7-5.1FOhioHealth Grant Medical Centerodium [Moles/Vol]141 mmol/V992-222YvhsihfyuTrumbull Memorial HospitalUrea nitrogen [Mass/Vol]16 mg/dL9-24[facility] HospitalLaboratory - Hematology and Cell countson 60-09-8818Kplzfxarmdc (Bld) [#/Vol]0.13 10*3/uL<0.46[facility] HospitalImmature granulocytes (Bld) [#/Vol]0.03 10*3/uL<0.10 [facility] HospitalImctture granulocytes/100 WBC (Bld)0.3 % [facility] HospitalLeukocytes [#/volume] corrected for nucleated erythrocytes in Blood by Automated counon 15-67-0693MND corrected for nucl RBC Auto (Bld) [#/Vol]8.78 k/uL3.70-11.00[facility] Lymphocytes Auto (Bld) [#/Vol]on 27-96-7656Ufzzavopurq (Bld) [#/Vol]2.18 10*3/uL 1.00-4.00[facility] HospitalLymphocytes/100 WBC Auto (Bld)on 82-63-3501Mbfpbaeucby/100 WBC (Bld)24.8 %[facility] HospitalMCH Auto (RBC) [Entitic mass]on 72-46-2329WAV (RBC) [Entitic mass]32.0 pg26.0-34.0 [facility] HospitalMCHC Auto (RBC) [Mass/Vol]on 66-46-4021RGQE (RBC) [Mass/Vol]33.8 g/dL30.5-36.0[facility] HospitalMCV Auto (RBC) [Entitic vol]on 52-01-2115UAJ (RBC) [Entitic vol]94.7 fL80.0-100.0 [facility] HospitalMonocytes Auto (Bld) [#/Vol]on 10-26-2023 Monocytes (Bld) [#/Vol]0.60 10*3/uL<0.87[facility] Monocytes/100 WBC Auto (Bld)on 93-40-0539Nyichbnaj/100 WBC (Bld)6.8 %[facility] Memorial HospitalNeutrophils Auto (Bld) [#/Vol]on 24-96-1422Fkiqekjkubm (Bld) [#/Vol]5.80 10*3/uL1.45-7.50[facility] Neutrophils/100 WBC Auto (Bld)on 10-64-6465Ffzmrjknoah/100 WBC (Bld)66.1 % [facility] HospitalNo Panel Informationon 45-55-2519Gsfanwkoq Study observation (narrative)[facility] HospitalEstimated GFR (CKD-EPI)85 mL/min/1.73m???>=60[facility] HospitalComment on above:Estimated Glomerular Filtration Rate [...] reflect actual GFR.Nucleated RBC Auto (Bld) [#/Vol]on 99-82-5256Ugojkqliu RBC (Bld) [#/Vol]10*3/uL<0.01[facility] HospitalNucleated erythrocytes [Presence] in Blood by Automated counton 05-10-2024 Nucleated RBC Auto Ql (Bld)0.0 /100{WBC}[facility] Platelet mean volume Auto (Bld) [Entitic vol]on 58-80-1854Adlcefnx mean volume (Bld) [Entitic vol]10.2 fL9.0-12.7FCleveland Clinic Mentor HospitalPlatelets Auto (Bld) [#/Vol]on 63-84-7571Ozmxnupvb (Bld) [#/Vol]314 10*3/iE285-573 [facility] HospitalProtein [Mass/volume] in Serum or Plasmaon 78-87-2114Cwfabso [Mass/Vol]6.4 g/dL6.3-8.0[facility] HospitalRBC Auto (Bld) [#/Vol]on 61-34-3538QFK (Bld) [#/Vol]4.50 10*6/uL4.20-6.00C[facility] Clinic Mentor Hospitalerum or plasma anion gap determinationon 16-99-3690Ncwkv gap [Moles/Vol]8 mmol/L9-18FCleveland Clinic Mentor HospitalAlanine aminotransferase [Enzymatic activity/volume] in Serum or PlasmaOrdered By: Griselda Krause on 15-07-3162INK [Catalytic activity/Vol]8 U/L7-52[facility] HospitalAlbumin [Mass/volume] in Serum or Plasma by Bromocresol green (BCG) dye binding methoOrdered By: Griselda Krause on 60-93-3082Mkfzexo BCG dye [Mass/Vol]3.9 g/dL3.5-5.7FCleveland Clinic Mentor HospitalAlkaline phosphatase [Enzymatic activity/volume] in Serum or PlasmaOrdered By: Griselda Krause on 27-51-0024ZQG [Catalytic activity/Vol]59 U/N62-290VsnkjkxdsTrumbull Memorial HospitalAspartate aminotransferase [Enzymatic activity/volume] in Serum or Plasma Ordered By: Griselda Krause on 41-32-0777BCV [Catalytic activity/Vol]7 U/L13-39 [facility] HospitalBasophils Auto (Bld) [#/Vol]Ordered By: Griselda Krause on 36-55-7276Seyduocpk (Bld) [#/Vol]0.1 10*3/uL0.0-0.2FCleveland Clinic Mentor HospitalBasophils/100 WBC Auto (Bld)Ordered By: Griselda Krause on 10-09-2023 Basophils/100 WBC (Bld)0.9 %.[facility] HospitalBilirubin.total [Mass/volume] in Serum or PlasmaOrdered By: Griselda Krause on 87-74-6342Dhffzybuv [Mass/Vol]0.5 mg/dL0.3-1.0[facility] HospitalCOVID-19 Detected/Not DetectedOrdered By: Griselda Krause on 03-72-7033AVAZ-CoV-2 (COVID-19) RNA JER+non- probe Ql (Nph)Not detectedNot DetecteFCleveland Clinic Mentor HospitalComment on above:This is a duplicate RP2.1 COVID (PCR) result to be used for statistical tracking purpose only.Calcium [Mass/volume] in Serum or PlasmaOrdered By: Griselda Krause on 25-51-6850Kiuuyvo [Mass/Vol]9.5 mg/dL8.6-10.3FCleveland Clinic Mentor HospitalCarbon dioxide, total [Moles/volume] in Serum or PlasmaOrdered By: Griselda Krause on 22-50-8107MR2 [Moles/Vol]30.0 mmol/L21.0-31.0[facility] HospitalChloride [Moles/volume] in Serum or PlasmaOrdered By: Griselda Krause on 07-36-0070Pvgeroic [Moles/Vol]103 mmol/M35-294RxgxadfocTrumbull Memorial Hospital Creatinine [Mass/volume] in Serum or PlasmaOrdered By: Griselda Krause on 10-09-2023 Creatinine [Mass/Vol]0.92 mg/dL0.70-1.30[facility] Eosinophils Auto (Bld) [#/Vol]Ordered By: Griselda Krause on 69-02-4211Muekaldghwm (Bld) [#/Vol]0.1 10*3/uL0.0-0.45[facility] HospitalEosinophils/100 WBC Auto (Bld)Ordered By: Griselda Krause on 27-53-0721Edvgwqtsgyj/100 WBC (Bld)1.0 %.[facility] HospitalErythrocyte distribution width Auto (RBC) [Ratio]Ordered By: Griselda Krause on 45-35-4845Hlwlffuoxyw distribution width (RBC) [Ratio]14.3 %12.0-14.8[facility] HospitalGlobulin Calc (S) [Mass/Vol]Ordered By: Griselda Krause on 01-04-4587Lickrtfn (S) [Mass/Vol]2.0 g/dL [facility] HospitalGlucose [Mass/volume] in Serum or PlasmaOrdered By: Griselda Krause on 08-88-0833Hadaivu [Mass/Vol]84 mg/bP46-500QodqpgqbaTrumbull Memorial HospitalComment on above:ADA recommended reference rangeRandom Glucose Reference Range is dependent on time and content of last meal. Glucose of more than 200 mg/dL in a nonstressed, ambulatory subject supports the diagnosisof Diabetes Mellitus.Hematocrit Auto (Bld) [Volume fraction]Ordered By: Griselda Krause on 86-33-3702Qdgsfdphcj (Bld) [Volume fraction]41.9 %38.8-50.0[facility] HospitalHemoglobin [Mass/volume] in BloodOrdered By: Griselda Krause on 78-30-9866Higykivvfa (Bld) [Mass/Vol]14.4 g/dL13.0-17.0[facility] HospitalLeukocytes [#/volume] corrected for nucleated erythrocytes in Blood by Automated counOrdered By: Griselda Krause on 98-45-3398TUM corrected for nucl RBC Auto (Bld) [#/Vol]8.1 10*3/uL4.1-10.5FCleveland Clinic Mentor Hospital Lymphocytes Auto (Bld) [#/Vol]Ordered By: Griselda Krause on 98-14-3872Cyzdrvkooat (Bld) [#/Vol]2.7 10*3/uL1.00-4.8[facility] HospitalLymphocytes/100 WBC Auto (Bld)Ordered By: Griselda Krause on 76-06-6394Uufszfovexo/100 WBC (Bld)33.6 %.[facility] HospitalMCH Auto (RBC) [Entitic mass]Ordered By: Griselda Krause on 69-21-5443BZH (RBC) [Entitic mass]32.7 pg27.5-35.2FCleveland Clinic Mentor HospitalMCHC Auto (RBC) [Mass/Vol]Ordered By: Griselda Krause on 47-79-5853CIHH (RBC) [Mass/Vol]34.4 g/dL32.5-35.6FCleveland Clinic Mentor HospitalMCV Auto (RBC) [Entitic vol]Ordered By: Griselda Krause on 85-35-6091SPE (RBC) [Entitic vol]94.8 fL83.5-101[facility] HospitalMonocytes Auto (Bld) [#/Vol]Ordered By: Griselda Krause on 00-27-0046Opvnlkvug (Bld) [#/Vol]0.6 10*3/uL0.0-0.8[facility] HospitalMonocytes/100 WBC Auto (Bld) Ordered By: Griselda Krause on 63-28-7493Ifczkqtsz/100 WBC (Bld)7.5 %.[facility] HospitalNeutrophils Auto (Bld) [#/Vol]Ordered By: Griselda Krause on 24-08-4923Ieosiqbwbzw (Bld) [#/Vol]4.6 10*3/uL1.8-7.7FCleveland Clinic Mentor HospitalNeutrophils/100 WBC Auto (Bld)Ordered By: Griselda Krause on 10-09-2023 Neutrophils/100 WBC (Bld)57.0 %.[facility] HospitalNo Panel InformationOrdered By: Griselda Krause on 75-80-5957Voxurnltc GFR (CKD-EPI)> 60.0 mL/MinTrumbull Memorial HospitalPharmacy Creatinine Clearance (ChemN/A [facility] HospitalNucleated erythrocytes [Presence] in Blood by Automated countOrdered By: Griselda Krause on 31-90-2446Ideuzgndb RBC Auto Ql (Bld) 0.2 /100{WBC}0-0.5FCleveland Clinic Mentor HospitalPlatelet mean volume Auto (Bld) [Entitic vol]Ordered By: Griselda Krause on 34-78-4302Ildzbwlt mean volume (Bld) [Entitic vol]8.3 fL6.6-10.1Fire[facility] Medical CenterPlatelets Auto (Bld) [#/Vol]Ordered By: Griselda Krause on 81-97-8130Fncdcadtl (Bld) [#/Vol]349 10*3/dE357-828FubzqqxdzTrumbull Memorial HospitalPotassium [Moles/volume] in Serum or PlasmaOrdered By: Griselda Krause on 89-86-6680Jbdqqvday [Moles/Vol]4.5 mmol/L 3.5-5.1FCleveland Clinic Mentor HospitalProtein [Mass/volume] in Serum or Plasma Ordered By: Griselda Krause on 69-58-2537[place] [Mass/Vol]5.9 g/dL6.4-8.9[facility] HospitalRBC Auto (Bld) [#/Vol]Ordered By: Griselda Krause on 91-35-0847SOZ (Bld) [#/Vol]4.42 10*6/uL3.90-5.60[facility] HospitalRespiratory pathogens DNA and RNA panel - Nasopharynx by JER with non- probe detectionOrdered By: Griselda Krause on 39-10-4720Aszmciyeomw pathogens DNA and RNA panel JER+non-probe (Nph)[facility] Hospitalerum or plasma albumin/globulin mass ratioOrdered By: Griselda Krause on 84-12-4685Diquefg/Globulin [Mass ratio]2.0 {ratio}[facility] Hospitalerum or plasma anion gap determinationOrdered By: Griselda Krause on 73-38-6627Kvxbg gap [Moles/Vol]9.5 mmol/L6.0-15.0[facility] Hospitalodium [Moles/volume] in Serum or PlasmaOrdered By: Griselda Krause on 39-21-5319Lybjqq [Moles/Vol]138 mmol/S352-517 [facility] HospitalUrea nitrogen [Mass/volume] in Serum or Plasma Ordered By: Griselda Krause on 91-86-3044Wdtk nitrogen [Mass/Vol]14 mg/dL7-25 [facility] HospitalWBC Auto (Bld) [#/Vol]Ordered By: Griselda Krause on 26-90-6194PGC (Bld) [#/Vol]8.1 10*3/uL4.1-10.5FC[facility] Clinic [facility] Hospital Study Interpretation of outside studyon 98-20-4800Ecxtrqg images for comparison or treatment purposes, not interpreted by Radiologists.IMAGINGMRI BRAIN W WO CONTRASTon 21-32-9774HWY BRAIN W WO CONTRAST EXAMINATION: MRI OF [...] Signed by: Vitor Hickman MD 08/01/23 Final resultNormVibra Long Term Acute Care HospitalMRI CERVICAL SPINE WO CONTRASTon 56-37-3298NIC CERVICAL SPINE WO CONTRASTEXAMINATION: MRI OF THE [...] Signed by: Vitor Hickman MD 08/01/23 Final resultNormalSt. Mary'S Medical CenterCOVID + FLU Quick Testingon 17-85-6955ZBRU-CoV-2 (COVID-19) RNA JER+probe Ql (Unsp spec)NegativeChinaNetCenter Other COVID + FLU Quick TestingNegativeYAZUO [employer] Other Quick Strepon 07-02-2023S. pyogenes Org specific cx Ql (Throat)NegativeChinaNetCenter Other quick [employer] Other RSVon 19-76-9164EQQ Ag IA Ql (Unsp spec)NegativeChinaNetCenter Other Creatinine [Mass/volume] in Serum or PlasmaOrdered By: Ruddy Harvey on 63-35-6248Jpgbmdodwv [Mass/Vol]0.91 mg/dL0.70-1.30 [facility] HospitalNo Panel InformationOrdered By: Ruddy Harvey on 20-73-4424Fphdgyusr GFR (CKD-EPI)> 60.0 mL/MinTrumbull Memorial HospitalPharmacy Creatinine Clearance (Chem83.52[facility] HospitalUrea nitrogen [Mass/volume] in Serum or PlasmaOrdered By: Ruddy Harvey on 84-68-0411Oslg nitrogen [Mass/Vol]15 mg/dL7-[facility] HospitalCreatinine (Bld) [Mass/Vol]Ordered By: Nikole Mota on 69-39-7876Zfyopbprba [Mass/Vol]0.9 mg/dL0.6-1.3FC[facility] Comment on above:ER/ESD physician is notified/shown all ISTAT results.Critical values may be confirmed by laboratorytesting ifdeemed necessary by ER attending doctor.No Panel InformationOrdered By: Nikole Mota on 40-38-5659Itvcvoi Estimated GFR (eGFR)> 60.0[facility] HospitalAlanine aminotransferase [Enzymatic activity/volume] in Serum or PlasmaOrdered By: Griselda Krause on 80-92-0740UGR [Catalytic activity/Vol]10 U/L7-52[facility] HospitalAlbumin [Mass/volume] in Serum or Plasma by Bromocresol green (BCG) dye binding methoOrdered By: Griselda Krause on 79-66-7020Gmhjnjz BCG dye [Mass/Vol]4.2 g/dL3.5-5.7FC[facility] Clinic Mentor HospitalAlkaline phosphatase [Enzymatic activity/volume] in Serum or PlasmaOrdered By: Griselda Krause on 01-84-2729TSK [Catalytic activity/Vol]61 U/R65-617KzanminhfTrumbull Memorial HospitalAspartate aminotransferase [Enzymatic activity/volume] in Serum or Plasma Ordered By: Griselda Krause on 91-96-0129MKD [Catalytic activity/Vol]8 U/L13-39 [facility] HospitalBasophils Auto (Bld) [#/Vol]Ordered By: Griselda Krause on 80-45-8798Fgrlvjfds (Bld) [#/Vol]0.1 10*3/uL0.0-0.2FCleveland Clinic Mentor HospitalBasophils/100 WBC Auto (Bld)Ordered By: Griselda Krause on 03-30-2023 Basophils/100 WBC (Bld)0.8 %.[facility] HospitalBilirubin.total [Mass/volume] in Serum or PlasmaOrdered By: Griselda Krause on 79-55-4909Srlznrvkh [Mass/Vol]0.9 mg/dL0.3-1.0[facility] HospitalCalcium [Mass/volume] in Serum or PlasmaOrdered By: Griselda Krause on 30-85-8705Lsrapkd [Mass/Vol]9.1 mg/dL8.6-10.3FC[facility] Clinic Ment[facility] HospitalCarbon dioxide, total [Moles/volume] in Serum or PlasmaOrdered By: Griselda Krause on 21-78-5701WO3 [Moles/Vol]27.0 mmol/L21.0-31.0[facility] HospitalChloride [Moles/volume] in Serum or PlasmaOrdered By: Griselda Krause on 84-85-4716Ykxahruy [Moles/Vol]103 mmol/H63-445IpycgobkpTrumbull Memorial HospitalCholesterol [Mass/volume] in Serum or PlasmaOrdered By: Griselda Krause on 20-29-8040Cvlydkwzffl [Mass/Vol]224 mg/aA878-691GdonknuehTrumbull Memorial HospitalComment on above:Chol less than 200 mg/dl low riskChol 201-239 mg/dl borderline riskChol 240 mg/dl and greater high riskCholesterol in LDL Calc [Mass/Vol]Ordered By: Griselda Krause on 66-61-9768Qnvjrvejcys in LDL [Mass/Vol]148 mg/dL0-100[facility] HospitalComment on above:LDL ATP III CLASSIFICATIONLDL less than 100 mg/dL OptimalLDL 100-129 mg/dL Near or above nrbqtnxWEM574-921 mg/dL Borderline highLDL 160-189 mg/dL HighLDL greater than 189 mg/dL Very highCholesterol in VLDL Calc [Mass/Vol]Ordered By: Griselda Krause on 09-70-5725Jivqhqkyhhk in VLDL [Mass/Vol]31 mg/dLTrumbull Memorial HospitalCreatinine [Mass/volume] in Serum or PlasmaOrdered By: Griselda Krause on 62-42-2836Maydumkfis [Mass/Vol]0.82 mg/dL0.70-1.30[facility] HospitalEosinophils Auto (Bld) [#/Vol] Ordered By: Griselda Krause on 47-22-7500Gojrgdzzupo (Bld) [#/Vol]0.1 10*3/uL0.0-0.45 [facility] HospitalEosinophils/100 WBC Auto (Bld)Ordered By: Griselda Krause on 14-14-8618Roxrwxdtlxj/100 WBC (Bld)0.6 %.[facility] HospitalErythrocyte distribution width Auto (RBC) [Ratio]Ordered By: Griselda Krause on 55-03-6587Atdevhwbnay distribution width (RBC) [Ratio]14.1 %12.0-14.8[facility] HospitalGlobulin Calc (S) [Mass/Vol]Ordered By: Griselda Krause on 28-40-7445Reboagyt (S) [Mass/Vol]1.9 g/dLTrumbull Memorial Hospital Glucose [Mass/volume] in Serum or PlasmaOrdered By: Griselda Krause on 03-30-2023 Glucose [Mass/Vol]83 mg/iE99-320OfitjzehiTrumbull Memorial HospitalComment on above:ADA recommended reference rangeRandom Glucose Reference Range is dependent on time and content of last meal. Glucose of more than 200 mg/dL in a nonstressed, ambulatory subject supports the diagnosisof Diabetes Mellitus. Hematocrit Auto (Bld) [Volume fraction]Ordered By: Griselda Krause on 03-30-2023 Hematocrit (Bld) [Volume fraction]41.4 %38.8-50.0[facility] HospitalHemoglobin [Mass/volume] in BloodOrdered By: Griselda Krause on 03-30-2023 Hemoglobin (Bld) [Mass/Vol]14.4 g/dL13.0-17.0[facility] Leukocytes [#/volume] corrected for nucleated erythrocytes in Blood by Automated counOrdered By: Griselda Krause on 98-36-5319DUQ corrected for nucl RBC Auto (Bld) [#/Vol]10.0 10*3/uL4.1-10.5FCleveland Clinic Mentor HospitalLymphocytes Auto (Bld) [#/Vol]Ordered By: Griselda Krause on 02-94-3348Cfglrslmyfl (Bld) [#/Vol]1.7 10*3/uL1.00-4.8[facility] HospitalLymphocytes/100 WBC Auto (Bld) Ordered By: Griselda Krause on 39-79-2183Jtukafikvme/100 WBC (Bld)16.8 %.[facility] Auto (RBC) [Entitic mass]Ordered By: Griselda Krause on 35-66-4262SEW (RBC) [Entitic mass]33.9 pg27.5-35.2[facility] Medical CenterMCHC Auto (RBC) [Mass/Vol]Ordered By: Griselda Krause on 28-17-8562VQHU (RBC) [Mass/Vol]34.9 g/dL32.5-35.6FCleveland Clinic Mentor HospitalMCV Auto (RBC) [Entitic vol]Ordered By: Griselda Krause on 42-02-4155PFH (RBC) [Entitic vol]97.1 fL 83.5-101[facility] HospitalMonocytes Auto (Bld) [#/Vol]Ordered By: Griselda Krause on 70-00-4563Pqldhankb (Bld) [#/Vol]0.8 10*3/uL0.0-0.8[facility] HospitalMonocytes/100 WBC Auto (Bld)Ordered By: Griselda Krause on 47-17-1573Ixcisbhco/100 WBC (Bld)8.0 %.[facility] Neutrophils Auto (Bld) [#/Vol]Ordered By: Griselda Krause on 38-99-6217Jwkjqedwlza (Bld) [#/Vol]7.3 10*3/uL1.8-7.7FCleveland Clinic Mentor HospitalNeutrophils/100 WBC Auto (Bld)Ordered By: Griselda Krause on 11-47-9170Nvwiwlrcwtb/100 WBC (Bld)73.8 %.[facility] HospitalNo Panel InformationOrdered By: Griselda Krause on 16-83-4537Fuqcaxmuo GFR (CKD-EPI)> 60.0 mL/MinTrumbull Memorial Hospital Pharmacy Creatinine Clearance (ChemN/[facility] Hospital for RehabilitationNucleated erythrocytes [Presence] in Blood by Automated countOrdered By: Griselda Krause on 27-11-9491Ltfqrdglj RBC Auto Ql (Bld)0.1 /100{WBC}0-0.5FCleveland Clinic Mentor HospitalPlatelet mean volume Auto (Bld) [Entitic vol]Ordered By: Griselda Krause on 53-77-8635Iwbjatjc mean volume (Bld) [Entitic vol]9.2 fL6.6-10.1 [facility] HospitalPlatelets Auto (Bld) [#/Vol]Ordered By: Griselda Krause on 58-03-0742Ufvihxusn (Bld) [#/Vol]221 10*3/dF073-837ZykglcccvTrumbull Memorial HospitalPotassium [Moles/volume] in Serum or PlasmaOrdered By: Griselda Krause on 46-14-7967Tubpsqubx [Moles/Vol]4.1 mmol/L3.5-5.1FC[facility] Clinic Ment[facility] HospitalProtein [Mass/volume] in Serum or PlasmaOrdered By: Griselda Krause on 54-97-6196Bewvljd [Mass/Vol]6.1 g/dL6.4-8.9[facility] HospitalRBC Auto (d) [#/Vol]Ordered By: Griselda Krause on 24-35-2803PNH (d) [#/Vol]4.26 10*6/uL3.90-5.60[facility] Hospitalerum or plasma albumin/globulin mass ratioOrdered By: Griselda Krause on 58-73-6485Zzwpsep/Globulin [Mass ratio]2.2 {ratio}[facility] Hospitalerum or plasma anion gap determinationOrdered By: Griselda Krause on 91-78-1094Rcbdp gap [Moles/Vol]12.1 mmol/L6.0-15.0[facility] Hospitalerum or plasma high density lipoprotein (HDL) cholesterol measurementOrdered By: Griselda Krause on 03-30-2023 Cholesterol in HDL [Mass/Vol]44 mg/cE99-25TdkrifzkzTrumbull Memorial Hospital Comment on above:HDL CHOL ATP-III CLASSIFICATION Cardiovascular RiskHDL > or equal to 60 mg/dL LOWHDL < 40 mg/dL HIGHSerum or plasma total cholesterol/high density lipoprotein (HDL) cholesterol mass ratOrdered By: Griselda Krause on 92-10-6522Jbqzfsggrkd.total/Cholesterol in HDL [Mass ratio]5.1 {ratio}<5.0 [facility] Hospitalodium [Moles/volume] in Serum or PlasmaOrdered By: Griselda Krause on 28-53-0957Gowmdy [Moles/Vol]138 mmol/U198-079XglxqypxwTrumbull Memorial HospitalThyrotropin [Units/volume] in Serum or PlasmaOrdered By: Griselda Krause on 87-44-7494UPO Qn0.93 m[IU]/L0.45-5.33[facility] HospitalTriglyceride [Mass/volume] in Serum or PlasmaOrdered By: Griselda Krause on 39-79-1232Zsrtlfmyndrj [Mass/Vol]159 mg/dL0-149[facility] Comment on above:TRIG ATP III CLASSIFICATIONTRIG less than 150 mg/dL NormalTRIG 150-199 mg/dL Borderline highTRIG 200-500 mg/dL High TRIG greater than 500 mg/dL Very highStandard traceable to the Center for Disease Conrtrol and Prevention (CDC) test method.Urea nitrogen [Mass/volume] in Serum or PlasmaOrdered By: Griselda Krause on 24-45-5304Nsmh nitrogen [Mass/Vol]10 mg/dL7-25[facility] HospitalWBC Auto (Bld) [#/Vol]Ordered By: Griselda Krause on 58-98-0353ODR (Bld) [#/Vol]10.0 10*3/uL4.1-10.5FCleveland Clinic Mentor HospitalCOVID-19 YENNY Ordered By: Daniel Gaytan on 15-37-8812NJVA-CoV+SARS-CoV-2 (COVID-19) Ag IA.rapid Ql (Resp)NegativeNegativeTrumbull Memorial HospitalComment on above:This is a duplicate Yenny SARS Antigen (JAMILA) result to be used for statistical tracking purpose only.No Panel InformationOrdered By: Daniel Gaytan on 53-73-1227SFLY Antigen (LFIA)[facility] HospitalARS Antigen (LFIA)[facility] HospitalNo Panel Informationon 78-68-7643QL Pain Management Case (Reference Range: not available) *FINAL Date of Service: 12/28/2022 08:49 Adm #: [id number] Reading Dr:RICARDO CAPPS Signoff Dr: RICARDO CAPPS PROCEDURE: PAIN MANAGEMENT CASE - BXR 0999 REASON FOR EXAM: SPONDYLOSIS W/O MYELOPATHY OR RADICULOPATHY, CERVICAL REGION RESULT: Patient Name: SHANTEL MELENDEZ STUDY: PAIN MANAGEMENT CASE INDICATION: SPONDYLOSIS W/O MYELOPATHY OR RADICULOPATHY, CERVICAL REGION COMPARISON: None. ACCESSION NUMBER(S): [id number] ORDERING CLINICIAN: LIMA JOSEPH TECHNIQUE: See below: FINDINGS: Fluoroscopy was provided during therapeutic puncture in the region of the cervical spine for pain management. Total fluoroscopy time: 14.56mgy, images: 4. IMPRESSION: Fluoroscopy for pain management. Dictation workstation: [id number] Original Interpreting Physician: RICARDO CAPPS M.D. Original Transcribed by/Date: MMODAL Dec 28 2022 6:14A Original Electronically Signed by/Date: RICARDO CAPPS M.D. Dec 28 2022 9:04A Addendum Interpreting Physician: Addendum Transcribed by/Date: NO ADDENDUM Addendum Electronically Signed by/Date: [facility] EnterprCatch.comuick Strepon 12-05-2022S. pyogenes Org specific cx Ql (Throat) NegativeMemorial Sloan - Kettering Cancer Center Other Quick StrepMemorial Sloan [facility] Other CT Chest W contrast Tristin 05-29-2083BNOPMORVED: Stable CT of the chest. Unchanged appearance [...] any questions regarding this interpretation, please call [phone]. If you are unable to reach us at the number above, please feel free to contact [facility] eRadiology at [phone].DIVISION OF RADIOLOGY* * *Final Report* * * DATE OF EXAM: Oct 27 2022 11:44AM [facility] 0539 - CT CHEST W IVCON [...] No abnormality in the imaged upper abdomen. Diamond Polisher (topogram) images: No additional findings. DIVISION OF RADIOLOGYProvider, [facility] [place] - 10/30/2022 * * *Final Report* * * DATE OF EXAM: Oct 27 2022 11:44AM [facility] 0539 - CT CHEST W IVCON [...] No abnormality in the imaged upper abdomen. Diamond Polisher (topogram) images: No additional findings. IMPRESSION IMPRESSION: [...] any questions regarding this interpretation, please call [phone]. If you are unable to reach us at the number above, please feel free to contact [facility] eRadiology at [phone]. [facility] W Auto Differential panel (Bld)on 10-27-2022 Basophils (Bld) [#/Vol]0.03 10*3/uLNIMorrow County Hospital ClinicBasophils/100 WBC (Bld) 0.[address] %[address] HospitalDifferential cell count method Nom (Bld)AutoCleveland ClinicEosinophils (Bld) [#/Vol]0.06 10*3/uLNINFWilson [address] HospitalEosinophils/100 WBC (Bld)0.7 %[address] HospitalErythrocyte distribution width (RBC) [Ratio]14.0 % 11.5 - 15.0 %[facility] [address] HospitalHematocrit (Bld) [Volume fraction]43.5 %39.0 - 51.0 %[facility] [address] HospitalHemoglobin (Bld) [Mass/Vol]14.5 g/dL13.0 - 17.0 g/dLWilson Street HospitalImmature granulocytes (Bld) [#/Vol]0.03 10*3/uLNINFWilson Street Hospital Immature granulocytes/100 WBC (Bld)0.[address] %[address] HospitalLymphocytes (Bld) [#/Vol]2.00 10*3/uLWilson Street HospitalLymphocytes/100 WBC (Bld)21.9 %[facility] HospitalH (RBC) [Entitic mass]31.3 pg26.0 - 34.0 pgCACMC Healthcare SystemHC (RBC) [Mass/Vol]33.3 g/dL30.5 - 36.0 g/dLSt. Vincent HospitalV (RBC) [Entitic vol]93.8 fL80.0 - 100.0 fLClevelhugh chatham memorial hospital ClinicMonocytes (Bld) [#/Vol]0.53 10*3/uLNINF [facility] [address] HospitalMonocytes/100 WBC (Bld)5.[address] %[address] HospitalNeutrophils (Bld) [#/Vol]6.47 10*3/uLWilson [address] HospitalNeutrophils/100 WBC (Bld)71.[address] %[address] HospitalNucleated RBC (Bld) [#/Vol]NINFClevelOhio State East HospitalNucleated RBC/100 WBC (Bld) [Ratio]0.0 %/[address] HospitalPlatelet mean volume (Bld) [Entitic vol] 10.8 fL9.0 - 12.7 fLCmartins ferry hospital ClinicPlatelets (Bld) [#/Vol]253 10*3/[facility] HospitalRBC (Bld) [#/Vol]4.64 10*6/uL4.20 - 6.00 m/[facility] HospitalWBC (Bld) [#/Vol]9.12 10*3/uLMercy Health St. [facility] ClinicCT Neck W contrast Tristin 92-79-3761EOCFBTVNFK: Primary NIRADS Category: 1. Expected post-treatment changes in the neck without evidence of recurrent disease in the primary site. Neck NIRADS Category: 1. No evidence of abnormal lymph nodes. [email or web address] [email or web address] Transcribe Date/Time: Oct 27 2022 11:56A Dictated by: KALPANA HAMPTON MD This examination was interpreted and the report reviewed and electronically signed by: KALPANA HAMPTON MD on Oct 27 2022 12:14PM EST Thank you for allowing us to participate in the care of your patient. Should there be any questions regarding this interpretation, please call [phone]. 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 Parotid and submandibular spaces are normal. Wafer Machine Operator spaces appear normal. Infrahyoid Neck: Hypopharynx, [...] focal consolidation or mass. 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 Parotid and submandibular spaces are normal. Wafer Machine Operator spaces appear normal. Infrahyoid Neck: Hypopharynx, [...] 1. No evidence of abnormal lymph nodes. [email or web address] [email or web address] Transcribe Date/Time: Oct 27 2022 11:56A Dictated by: KALPANA HAMPTON MD This examination was interpreted and the report reviewed and electronically signed by: KALPANA HAMPTON MD on Oct 27 2022 12:14PM EST Thank you for allowing us to participate in the care of your patient. Should there be any questions regarding this interpretation, please call [phone]. If you are unable to reach us at the number above, please feel free to contact [facility] Centeriology at [phone]. [facility] Neck W contrast IVOrdered By: Ccf Provider on 10-27-[address] HospitalComprehensive metabolic 2000 panelOrdered By: Kelly Goodson on 58-66-6335Hkisvng [Mass/Vol]4.3 g/dL3.9 - 4.9 g/dLPope Army Airfield ClinicALP [Catalytic activity/Vol]89 U/L38 - 113 U/LCleveland ClinicALT [Catalytic activity/Vol]7 U/LLow10 - 54 U/LCleveland ClinicAnion gap [Moles/Vol]10 mmol/L9 - 18 mmol/L [facility] ClinicAST [Catalytic activity/Vol]8 U/LLow14 - 40 U/LC[facility] Clinic Bilirubin [Mass/Vol]0.3 mg/dL0.2 - 1.3 mg/dLPope Army Airfield ClinicCalcium [Mass/Vol] 9.6 mg/dL8.5 - 10.2 mg/dLPope Army Airfield ClinicChloride [Moles/Vol]104 mmol/L97 - 105 mmol/LCleveland ClinicCO2 [Moles/Vol]27 mmol/L22 - 30 mmol/LCleveland Clinic Creatinine [Mass/Vol]0.93 mg/dL0.73 - 1.22 mg/dLWilson Street HospitalGFR/1.73 sq M.predicted among non-blacks MDRD (S/P/Bld) [Vol rate/Area]95 mL/min/{1.73_m2}- PINFClevelOhio State East HospitalComment on above:Estimated Glomerular Filtration Rate (eGFR) [...] reflect actual GFR.Glucose [Mass/Vol]98 mg/dL74 - 99 mg/dLWilson Street HospitalComment on above:The [place] Diabetes Association (ADA) provides guidance for cutoff [...] Standards of Medical Care in Diabetes 2016, [place] [employer]. Diabetes Care. 2016.39(Suppl 1). Interpretation and review of laboratory resultsAbnormalCleveland ClinicPotassium [Moles/Vol]4.5 mmol/L3.7 - 5.1 mmol/LCleveland ClinicProtein [Mass/Vol]6.6 g/dL 6.3 - 8.0 g/dLPope Army Airfield ClinicSodium [Moles/Vol]141 mmol/L136 - 144 mmol/L [address] HospitalUrea nitrogen [Mass/Vol]12 mg/dL9 - 24 mg/dLMary Rutan HospitalNo Panel Informationon 97-68-7515Nfsluxuuk Study observation (narrative)[facility] aminotransferase [Enzymatic activity/volume] in Serum or PlasmaOrdered By: Griselda Krause on 56-66-7060QQK [Catalytic activity/Vol]7 U/L7-52[facility] HospitalAlbumin [Mass/volume] in Serum or Plasma by Bromocresol green (BCG) dye binding methoOrdered By: Griselda Krause on 62-21-9782Zsuuhax BCG dye [Mass/Vol]4.2 g/dL3.5-5.7FCleveland Clinic Mentor HospitalAlkaline phosphatase [Enzymatic activity/volume] in Serum or PlasmaOrdered By: Griselda Krause on 51-67-3275ZJH [Catalytic activity/Vol]76 U/L 34-104[facility] HospitalAspartate aminotransferase [Enzymatic activity/volume] in Serum or PlasmaOrdered By: Griselda Krause on 32-23-2453ITE [Catalytic activity/Vol]10 U/I21-37NpugqohpeTrumbull Memorial HospitalBasophils Auto (Bld) [#/Vol]Ordered By: Griselda Krause on 30-37-2737Itrfitjbh (Bld) [#/Vol]0.0 10*3/uL0.0-0.2FCleveland Clinic Mentor HospitalBasophils/100 WBC Auto (Bld) Ordered By: Griselda Krause on 79-67-8004Gwszshxxz/100 WBC (Bld)0.9 %.[facility] HospitalBilirubin.total [Mass/volume] in Serum or PlasmaOrdered By: Griselda Krause on 11-84-8453Epyrlasdv [Mass/Vol]0.4 mg/dL0.3-1.0[facility] HospitalCalcium [Mass/volume] in Serum or PlasmaOrdered By: Griselda Krause on 72-91-2388Qtwywiv [Mass/Vol]9.1 mg/dL8.6-10.3FCleveland Clinic Mentor HospitalCarbon dioxide, total [Moles/volume] in Serum or PlasmaOrdered By: Griselda Krause on 02-01-6847NX7 [Moles/Vol]28.3 mmol/L21.0-31.0[facility] HospitalChloride [Moles/volume] in Serum or PlasmaOrdered By: Griselda Krause on 84-59-9566Gfjmestv [Moles/Vol]105 mmol/T64-494YqayvkclcTrumbull Memorial Hospital Cholesterol [Mass/volume] in Serum or PlasmaOrdered By: Griselda Krause on 10-24-2022 Cholesterol [Mass/Vol]240 mg/fM292-931AnexpnsjbTrumbull Memorial HospitalComment on above:Chol less than 200 mg/dl low riskChol 201-239 mg/dl borderline riskChol 240 mg/dl and greater high riskCholesterol in LDL Calc [Mass/Vol]Ordered By: Griselda Krause on 98-39-3474Avlgztetnhz in LDL [Mass/Vol]169 mg/dL0-100[facility] HospitalComment on above:LDL ATP III CLASSIFICATIONLDL less than 100 mg/dL OptimalLDL 100-129 mg/dL Near or above pdzjinwNEB664-159 mg/dL Borderline highLDL 160-189 mg/dL HighLDL greater than 189 mg/dL Very high Cholesterol in VLDL Calc [Mass/Vol]Ordered By: Griselda Krause on 10-24-2022 Cholesterol in VLDL [Mass/Vol]35 mg/dLTrumbull Memorial Hospital Creatinine [Mass/volume] in Serum or PlasmaOrdered By: Griselda Krause on 10-24-2022 Creatinine [Mass/Vol]0.88 mg/dL0.70-1.30[facility] Eosinophils Auto (Bld) [#/Vol]Ordered By: Griselda Krause on 52-54-7108Umrwbkfhcah (Bld) [#/Vol]0.1 10*3/uL0.0-0.45[facility] HospitalEosinophils/100 WBC Auto (Bld)Ordered By: Griselda Krause on 80-63-0166Giwxxpehdmd/100 WBC (Bld)2.0 %.[facility] HospitalErythrocyte distribution width Auto (RBC) [Ratio]Ordered By: Griselda Krause on 05-33-3670Gknacoyorko distribution width (RBC) [Ratio]14.7 %12.0-14.8[facility] HospitalGlobulin Calc (S) [Mass/Vol]Ordered By: Griselda Krause on 60-26-0059Eggvyexk (S) [Mass/Vol]2.1 g/dL [facility] HospitalGlucose [Mass/volume] in Serum or PlasmaOrdered By: Griselda Krause on 35-01-9296Wzscuvl [Mass/Vol]82 mg/jU27-065DmttpfphvTrumbull Memorial HospitalComment on above:ADA recommended reference rangeRandom Glucose Reference Range is dependent on time and content of last meal. Glucose of more than 200 mg/dL in a nonstressed, ambulatory subject supports the diagnosisof Diabetes Mellitus.Hematocrit Auto (Bld) [Volume fraction]Ordered By: Griselda Krause on 59-28-3501Cvetvmajsu (Bld) [Volume fraction]43.4 %38.8-50.0[facility] HospitalHemoglobin [Mass/volume] in BloodOrdered By: Griselda Krause on 54-40-5033Itkyfyaakk (Bld) [Mass/Vol]14.5 g/dL13.0-17.0[facility] HospitalLeukocytes [#/volume] corrected for nucleated erythrocytes in Blood by Automated counOrdered By: Griselda Krause on 72-41-4367IMQ corrected for nucl RBC Auto (Bld) [#/Vol]5.0 10*3/uL4.1-10.5FCleveland Clinic [facility] Hospital Lymphocytes Auto (Bld) [#/Vol]Ordered By: Griselda Krause on 19-40-8761Yprotyaxtiz (Bld) [#/Vol]2.0 10*3/uL1.00-4.8[facility] HospitalLymphocytes/100 WBC Auto (Bld)Ordered By: Griselda Krause on 51-09-1830Erotmyqodaf/100 WBC (Bld)39.8 %.[facility] Medical CenterH Auto (RBC) [Entitic mass]Ordered By: Griselda Krause on 62-73-3880GPM (RBC) [Entitic mass]31.5 pg27.5-35.2FCleveland Clinic Mentor HospitalMCHC Auto (RBC) [Mass/Vol]Ordered By: Griselda Krause on 00-22-8209UPIW (RBC) [Mass/Vol]33.5 g/dL32.5-35.6FCleveland Clinic Mentor HospitalMCV Auto (RBC) [Entitic vol]Ordered By: Griselda Krause on 14-80-8910XXE (RBC) [Entitic vol]94.0 fL83.5-101[facility] HospitalMonocytes Auto (Bld) [#/Vol]Ordered By: Griselda Krause on 94-22-0972Yrqalqouk (Bld) [#/Vol]0.3 10*3/uL0.0-0.8[facility] HospitalMonocytes/100 WBC Auto (Bld) Ordered By: Griselda Krause on 80-96-1391Ezhoxxhjk/100 WBC (Bld)5.4 %.[facility] HospitalNeutrophils Auto (Bld) [#/Vol]Ordered By: Griselda Krause on 42-26-4674Jvucojzlnoo (Bld) [#/Vol]2.6 10*3/uL1.8-7.7FCleveland Clinic Mentor HospitalNeutrophils/100 WBC Auto (Bld)Ordered By: Griselda Krause on 10-24-2022 Neutrophils/100 WBC (Bld)51.9 %.[facility] HospitalNo Panel InformationOrdered By: Griselda Krause on 51-79-6578Itmtnrqxm GFR (CKD-EPI)> 60.0 mL/MinTrumbull Memorial HospitalPharmacy Creatinine Clearance (ChemN/A [facility] HospitalNucleated erythrocytes [Presence] in Blood by Automated countOrdered By: Griselda Krause on 14-89-0347Kqomfbhtr RBC Auto Ql (Bld) 0.1 /100{WBC}0-0.5FCleveland Clinic Mentor HospitalPlatelet mean volume Auto (Bld) [Entitic vol]Ordered By: Griselda Krause on 75-46-2018Zknpjfdd mean volume (Bld) [Entitic vol]9.6 fL6.6-10.1FCleveland Clinic Mentor HospitalPlatelets Auto (Bld) [#/Vol]Ordered By: Griselda Krause on 04-56-9193Zarfqnalb (Bld) [#/Vol]247 10*3/mH367-429TbhodlhmxTrumbull Memorial HospitalPotassium [Moles/volume] in Serum or PlasmaOrdered By: Griselda Krause on 76-83-1681Rbouqvvyc [Moles/Vol]4.0 mmol/L 3.5-5.1FCleveland Clinic Mentor HospitalProstate specific Ag [Mass/volume] in Serum or PlasmaOrdered By: Griselda Krause on 28-48-7083Wwahacin specific Ag [Mass/Vol]0.370 ng/mL0.000-4.000[facility] HospitalProtein [Mass/volume] in Serum or PlasmaOrdered By: Griselda Krause on 68-75-5343Agidjfe [Mass/Vol]6.3 g/dL6.4-8.9[facility] HospitalRBC Auto (Bld) [#/Vol] Ordered By: Griselda Krause on 93-79-2616XNS (Bld) [#/Vol]4.61 10*6/uL3.90-5.60 [facility] Hospitalerum or plasma albumin/globulin mass ratio Ordered By: Griselda Krause on 75-29-5111Obvdjyc/Globulin [Mass ratio]2.0 {ratio} [facility] Hospitalerum or plasma anion gap determinationOrdered By: Griselda Krause on 02-91-2707Jpsvk gap [Moles/Vol]11.7 mmol/L6.0-15.0C[facility] Ment[facility] Hospitalerum or plasma high density lipoprotein (HDL) cholesterol measurementOrdered By: Griselda Krause on 89-59-3823Lehyribblgf in HDL [Mass/Vol]36 mg/mY32-84JqcruwjacTrumbull Memorial HospitalComment on above:HDL CHOL ATP-III CLASSIFICATION Cardiovascular RiskHDL > or equal to 60 mg/dL LOWHDL < 40 mg/dL HIGHSerum or plasma total cholesterol/high density lipoprotein (HDL) cholesterol mass ratOrdered By: Griselda Krause on 10-24-2022 Cholesterol.total/Cholesterol in HDL [Mass ratio]6.7 {ratio}<5.0C[facility] Hospitalodium [Moles/volume] in Serum or PlasmaOrdered By: Griselda Krause on 02-40-7077Lwessl [Moles/Vol]141 mmol/M504-737CbtwxcagkTrumbull Memorial HospitalThyrotropin [Units/volume] in Serum or PlasmaOrdered By: Griselda Krause on 63-45-1759PRI Qn1.26 m[IU]/L0.45-5.33[facility] Triglyceride [Mass/volume] in Serum or PlasmaOrdered By: Griselda Krause on 82-42-6638Sohngodzhbki [Mass/Vol]175 mg/dL0-149[facility] Comment on above:TRIG ATP III CLASSIFICATIONTRIG less than 150 mg/dL NormalTRIG 150-199 mg/dL Borderline highTRIG 200-500 mg/dL High TRIG greater than 500 mg/dL Very highStandard traceable to the Center for Disease Conrtrol and Prevention (CDC) test method.Urea nitrogen [Mass/volume] in Serum or PlasmaOrdered By: Griselda Krause on 54-85-5723Qvsm nitrogen [Mass/Vol]15 mg/dL7-25[facility] HospitalWBC Auto (Bld) [#/Vol]Ordered By: Griselda Krause on 37-35-3580RQM (Bld) [#/Vol]5.0 10*3/uL4.1-10.5FCleveland Clinic Mentor HospitalBRIEF OP NOTon 70-25-6543EMOML OP NOTHNO ID: [id number] Author: Flores Cat APRN.[employer] Service: Interventional Radiology Author Type: Nurse Practitioner Type: Brief Op Note Filed: 09/28/2022 3:14 PM Note Text: BRIEF OPERATIVE / PROCEDURE NOTE LOG ID: [id number] SURGERY/PROCEDURE DATE: 09/28/2022 INCISION/PROCEDURE START TIME: 1:58 PM INCISION CLOSE/PROCEDURE END TIME: 2:27 PM SURGEON(S)/PROCEDURALIST(S) AND PREPARATION DEPARTMENT SUPERVISOR(S): Surgeon(s) and Role: * Flores Cat APRN.[employer] H[employer] KNITTER - Primary No Additional Staff SURGERY/PROCEDURE(S): LP [...] Melendez DATE: September 28, 2022 TIME: 3:10 [facility]on 82-79-6195PB LUMBAR PUNCTURE DIAG* * *Final Report* * * DATE OF EXAM: Sep 28 2022 2:41PM [facility] 7594 - IR LUMBAR PUNCTURE DIAG [...] guidance was performed in conjunction with the trim technician. Plane A, Air Kerma: 20.0 mGy Dose Area Product (DAP): 65193.1 mGy*cm2 Fluoro time: 3:54 min: sec Post-Procedure: [...] procedure was performed by: Flores Cat APRN.CNP Coordinator Cardiopulmonary Services: HARPER Transcribe Date/Time: Sep 28 2022 3:15P Dictated by : FLORES CAT CNP This examination was interpreted and the report reviewed and electronically signed by: FLORES CAT CNP on Sep 28 2022 3:22PM EST [id number] Memorial Hospital PROGon [id number] PROGHNO ID: [id number] Author: Court Magana RN Service: Nursing Author [...] Primary Care Provider Electronically Signed By: Court ChristensenWhitinsville [facility] BRAIN WO/W IVCONon 95-40-7892Xxwxbdimg ClinicCOVID + FLU Quick Testingon 08-01-2022 SARS-CoV-2 (COVID-19) RNA JER+probe Ql (Unsp spec)NegativeLee'S Summit HospitalViewsIQ Other COVID + FLU Quick TestingneagativeNnortheast missouri rural health network [employer] Other COVID + FLU Quick TestingNegativeNoresearch psychiatric center [employer] Other RSVon 15-27-4021ZPB Ag IA Ql (Unsp spec)PositiveChinaNetCenter Other Cerebrospinal fluid post-centrifugation appearance determinationOrdered By: Oziel Cadena on 64-10-3270Jqahynxrcg (Spun CSF) ColorlessColorlessTrumbull Memorial HospitalCerebrospinal fluid sample tube volume measurementOrdered By: Oziel Cadena on 77-47-1381Plhmxmpk volume (CSF)22.0 mLTrumbull Memorial HospitalColor CSFOrdered By: Oziel Cadena on 36-72-2581Vluat (CSF)ColorlessColorlessTrumbull Memorial Hospital Manual cerebrospinal fluid erythrocytes count (number/volume)Ordered By: Oizel Cadena on 08-37-1197ZWC Manual cnt (CSF) [#/Vol]0 /uLTrumbull Memorial HospitalComment on above:The reference interval and other method performance specifications have not been established for this body fluid. The test result must be integrated into the clinical context for interpretation.No Panel InformationOrdered By: Oziel Cadena on 86-65-3346NZH AppearanceClearClear [facility] HospitalCSF Tube NumberTube number: 1FCleveland Clinic Mentor HospitalNucleated cells [#/volume] in Cerebral spinal fluid by Manual countOrdered By: Oziel Cadena on 54-13-3068Etqkdwbct cells Manual cnt (CSF) [#/Vol]0.003 10*3/uL0-5FCleveland Clinic Mentor HospitalActivated partial thromboplastin time (aPTT) in platelet poor plasma by coagulation aOrdered By: Loi Wong on 71-50-4071dVVA Coag (PPP) [Time]32.8 s25.1-36.5FCleveland Clinic Mentor HospitalBasophils Auto (Bld) [#/Vol]Ordered By: Loi Wong on 85-79-9781Fmodjmlgj (Bld) [#/Vol]0.1 10*3/uL0.0-0.2FCleveland Clinic Mentor HospitalBasophils/100 WBC Auto (Bld)Ordered By: Loi Wong on 04-16-2022 Basophils/100 WBC (Bld)1.2 %.[facility] HospitalCreatine kinase [Enzymatic activity/volume] in Serum or PlasmaOrdered By: Loi Wong on 19-89-2323UE [Catalytic activity/Vol]69 U/M26-452AfhxkljteTrumbull Memorial HospitalCreatinine and Glomerular filtration rate.predicted panel (S/P/Bld)Ordered By: Loi Wong on 42-69-1209Tuktqlnols [Mass/Vol]0.97 mg/dL0.64-1.27[facility] HospitalEosinophils Auto (Bld) [#/Vol]Ordered By: Loi Wong on 75-05-4538Ehhxwdhfbsz (Bld) [#/Vol]0.1 10*3/uL0.0-0.45[facility] HospitalEosinophils/100 WBC Auto (Bld)Ordered By: Loi Wong on 74-99-1093Dgypmarmhog/100 WBC (Bld)1.2 %.[facility] Erythrocyte distribution width Auto (RBC) [Ratio]Ordered By: Loi Wong on 46-35-3883Gqowgsmnctl distribution width (RBC) [Ratio]14.1 %12.0-14.8[facility] HospitalEstimated glomerular filtration rate (GFR) non- AmericanOrdered By: Loi Wong on 70-03-4076DOI/1.73 sq M.predicted among non-blacks MDRD (S/P/Bld) [Vol rate/Area]> 60 mL/MinTrumbull Memorial HospitalHematocrit Auto (Bld) [Volume fraction]Ordered By: Loi Wong on 44-29-6407Hghnkzyfjf (Bld) [Volume fraction]43.2 %38.8-50.0[facility] HospitalHemoglobin [Mass/volume] in BloodOrdered By: Loi Wong on 61-43-5179Ldtjrhjfvj (Bld) [Mass/Vol]14.7 g/dL13.0-17.0[facility] HospitalLaboratory - Chemistry and Chemistry - challengeOrdered By: Loi Wong on 33-04-7390Zgotuehhaxh peptide B (Bld) [Mass/Vol]29.0 pg/mL5-100 [facility] HospitalLaboratory - CoagulationOrdered By: Loi Wong on 40-75-5059TY Coag (PPP) [Time]12.0 s9.0-12.9[facility] HospitalLaboratory - Hematology and Cell countsOrdered By: Loi Wong on 19-01-1227Novhizygm RBC/100 WBC (Bld) [Ratio]0.1 %0-0.5FCleveland Clinic Mentor HospitalLeukocytes [#/volume] in Blood by Automated countOrdered By: Loi Wong on 71-02-9585GHK (Bld) [#/Vol]7.7 10*3/uL4.5-11.0[facility] HospitalLymphocytes Auto (Bld) [#/Vol]Ordered By: Loi Wong on 83-77-1937Tcpzuaizvcy (Bld) [#/Vol]2.3 10*3/uL1.00-4.8[facility] HospitalLymphocytes/100 WBC Auto (Bld)Ordered By: Loi Wong on 83-12-9018Xaxqvnqqxal/100 WBC (Bld)29.4 %.[facility] Auto (RBC) [Entitic mass]Ordered By: Loi Wong on 81-57-4676RUD (RBC) [Entitic mass]32.0 pg27.5-35.2FCleveland Clinic Mentor HospitalMCHC Auto (RBC) [Mass/Vol]Ordered By: Loi Wong on 40-26-7326LGJJ (RBC) [Mass/Vol]34.0 g/dL 32.5-35.6FCleveland Clinic Mentor HospitalMCV Auto (RBC) [Entitic vol]Ordered By: oLi oWng on 67-41-1115REI (RBC) [Entitic vol]94.0 fL83.5-101[facility] HospitalMonocytes Auto (Bld) [#/Vol]Ordered By: Loi Wong on 12-74-2033Fxrkxonny (Bld) [#/Vol]0.6 10*3/uL0.0-0.8[facility] HospitalMonocytes/100 WBC Auto (Bld)Ordered By: Loi Wong on 04-16-2022 Monocytes/100 WBC (Bld)7.7 %.[facility] HospitalNeutrophils Auto (Bld) [#/Vol]Ordered By: Loi Wong on 47-26-5891Igwwzxtrkoz (Bld) [#/Vol]4.7 10*3/uL1.8-7.7FCleveland Clinic Mentor HospitalNeutrophils/100 WBC Auto (Bld) Ordered By: Loi Wong on 80-11-2443Llisloxljuj/100 WBC (Bld)60.5 %.[facility] HospitalNo Panel InformationOrdered By: Loi Wong on 98-66-6768Y-Dimer Quantitative (PE/DVT)< 200 ng/mL0-243Tr[facility] HospitalComment on above:The reference range for D-dimer [...] due toco-morbid conditions.Estimated GFR ()> 60 mL/Min [facility] HospitalComment on above:GFR estimated reference range: According to KDOQI guidelines, <60 ml/min/1.73m2 is sufficient todiagnose a patient with chronic kidney disease.Pharmacy Creatinine Clearance (Chem79.33 [facility] HospitalPlatelet mean volume Auto (Bld) [Entitic vol] Ordered By: Loi Wong on 34-12-2237Bqxcgmsr mean volume (Bld) [Entitic vol] 9.7 fL6.6-10.1FCleveland Clinic Mentor HospitalPlatelet poor plasma international normalized ratio (INR) by coagulation assay (relatOrdered By: Loi Wong on 77-55-9746DIO Coag (PPP) [Relative time]1.1 {INR}[facility] HospitalComment on above:INR Therapeutic Range A) Pre- [...] (Bld) [#/Vol] Ordered By: Loi Wong on 94-57-6082Lypylktrw (Bld) [#/Vol]238 10*3/tP717-077 [facility] HospitalRBC Auto (Bld) [#/Vol]Ordered By: Loi Wong on 20-27-4340LYC (Bld) [#/Vol]4.59 10*6/uL3.90-5.60Fire[facility] Regional Medical CenterSerum or plasma anion gap determinationOrdered By: Loi Wong on 76-90-6164Goehi gap [Moles/Vol]12.4 mmol/L6.0-15.0C[facility] Hospitalerum or plasma calcium measurement (mass/volume)Ordered By: Loi Wong on 67-91-9021Npxwtbc [Mass/Vol]9.0 mg/dL8.2-10.2FOhioHealth Grant Medical Centererum or plasma chloride measurement (moles/volume)Ordered By: Loi Wong on 74-29-1337Svahjqho [Moles/Vol]103 mmol/H39-599KwsmribvjCleveland Clinic Mentor Hospitalerum or plasma creatine kinase MB (CKMB)/total creatine kinase (CK) ratio by calculaOrdered By: Loi Wong on 91-52-7376UZ.MB Calc [Catalytic fraction]2.0 %0.00-2.50C[facility] Hospitalerum or plasma creatine kinase MB measurement (mass/volume)Ordered By: Loi Wong on 14-57-7369VY.MB [Mass/Vol]1.4 ng/mL0.6-6.3FOhioHealth Grant Medical Centererum or plasma glucose measurement (mass/volume)Ordered By: Loi Wong on 18-16-6838Qaikcez [Mass/Vol]88 mg/zW86-496AnliepoujTrumbull Memorial Hospital Comment on above:ADA recommended reference rangeRandom Glucose Reference Range is dependent on time and content of last meal. Glucose of more than 200 mg/dL in a nonstressed, ambulatory subject supports the diagnosisof Diabetes Mellitus. Serum or plasma potassium measurement (moles/volume)Ordered By: Loi Wong on 63-04-2225Rgqyptsac [Moles/Vol]4.3 mmol/L3.5-5.1FOhioHealth Grant Medical Centererum or plasma sodium measurement (moles/volume)Ordered By: Loi Wong on 71-48-2383Cqtavm [Moles/Vol]135 mmol/W880-421KjwfkevllCleveland Clinic Mentor Hospitalerum or plasma total carbon dioxide measurement (moles/volume)Ordered By: Loi Wong on 22-20-9506GB2 [Moles/Vol]23.9 mmol/L22.0-30.0[facility] Hospitalerum or plasma urea nitrogen measurement (mass/volume) Ordered By: Loi Wong on 08-38-0791Xdlv nitrogen [Mass/Vol]12 mg/dL9-23 [facility] HospitalTroponin I.cardiac [Mass/volume] in Serum or Plasma by High sensitivity methodOrdered By: Loi Wong on 18-21-7387Ckythxku I.cardiac High sensitivity method [Mass/Vol]5 pg/mL0-20[facility] HospitalCOVID Quick Testingon 87-91-2849SqzvnnQytrgjgbLlzmy [employer] Other Quick Fluon 39-10-0553BDLMH Ab CF (S) [Titer]Negative [facility] [employer] Other FLUBV Ab CF (S) [Titer]NegativeKissimmee [employer] Other MRI Brain w/o + w/on 12-09-1718GWA Brain w/o + w/ HISTORY: Blurred vision, [...] signed by Jillian Morales on 01/18/2022 1413NolenaalTelmartn Hospital For Special CareCell Count + Differential, CSFon 08-02-4523SVJ (Bld) [#/Vol]0.006 10*3/uLabove high threshold0 - 9XA-Uwgyoshwlcmq-Nnntaab Work Phone: [phone] Count + Differential, CSF70 1 LC-Bcydkeurkzhg-Yyphkqb Work Phone: [phone] Count + Differential, CSF10 % NQ-Ztfgajbpyqoc-Hhisjqn Work Phone: [phone] Count + Differential, CSF60 % WP-Tgpkyzukhmjx-Cilingd Work Phone: [phone] Count + Differential, CSF30 % VK-Smduerpewmzv-Ufzbrgm Work Phone: [phone] Count + Differential, CSFColorlessCOLORLESS QG-Ssmhorjjtdxa-Ndlscko Work Phone: [phone] Count + Differential, VAY331 /uLabove high threshold0 - 4SR-Vzkilaehnbwq-Abfkgwr Work Phone: [phone] Count + Differential, CSFTube 1 HE-Tqrfilmbwosh-Ydxobee Work Phone: [phone] Count + Differential, CSFClearCLEAR RN-Fvksrrguhmhw-Pcwdcsb Work Phone: [phone], CSF, includes smearon 74-98-8264Tzopwkyn identified Cx Nom (CSF)KM-Uqaoarmwsevy-Olziqzj Work Phone: [phone] 41-83-2153Ptyqrrs in CSF/Albumin in Serum or Plasma (S/P+CSF) [Relative ratio]7.9 {ratio}0.0-9.9NF-Ppvsffxyohkj-Zrtzrak Work Phone: [phone] in CSF/Albumin in Serum or Plasma (S/P+CSF) [Relative ratio]CpwyrignUZ-Vmueksvskatx-Lunqubo Work Phone: [phone] - Chemistry and Chemistry - challengeon 82-45-8856Ugdwcyb (CSF) [Mass/Vol]36 mg/dLabove high threshold0-35 JH-Txmucebgwpvl-Uxkyhup Work Phone: [phone] [Mass/Vol]4578 mg/hZ8037-8446 IK-Kyqncuqhmdvj-Rncrpnc Work Phone: [phone] (CSF) [Mass/Vol]2.2 mg/dL0.0-6.0 ST-Woloyccxblqt-Ihhcbuc Work Phone: [phone] [Mass/Vol]496 mg/dLbelow low ikgdpueer573-3377 HI-Pyorekubkimn-Cbahvzu Work Phone: [phone] on above:REFERENCE INTERVAL: Immunoglobulin GAccess complete set of age- and/or gender-specific reference intervals for this test in the [facility] Test Directory ([employer]).IgG clearance/Albumin clearance (S+CSF) [Ratio]0.56 {ratio}0.28-0.81HU-Hsctxaewyosm-Dlsfdbi Work Phone: [phone] synthesis rate Calc (S+CSF) [Mass/Time]0.5 mg/d <=8.5XX-Xbnvtnddsirl-Pjofptv Work Phone: [phone]/Albumin (CSF) [Mass ratio]0.06 {ratio}below low threshold0.09-0.23KT-Xepbpokoeigg-Qcuqaaz Work Phone: [phone] bands Elph (CSF) [Interp]NegativeNegative XW-Wyhkyxzybbad-Fmkiasc Work Phone: [phone] bands Elph Curtis (CSF) [Interp]See Note BD-Mdjjpndgkxtj-Kpbrjix Work Phone: [phone] on above:Isoelectric focusing/immunofixation revealed no oligoclonal bands in either the CSF or the serum. This is considered to be a negative result for oligoclonal bands. Approximately 5 percent of patientswith clinically definitive multiple sclerosis will have a negative result.Performed By: [employer] [place] [id number] Director: Paula I. Kane, MDAlbumin (CSF) [Mass/Vol]Canceled UL-Hhdvgrtkubof-Ubhlpqu Work Phone: [phone] [Mass/Vol]CgnmkqadSI-Zaraxzwsfmxw-Ybaemvb Work Phone: [phone] (CSF) [Mass/Vol]56 mg/dL40 - 70 FE-Bykbouqtxrjk-Zxcjmvp Work Phone: [phone] (CSF) [Mass/Vol]UbrpybhcFB-Jrqvyghgesav-Deexhgn Work Phone: [phone] [Mass/Vol]ZcbdjcskYK-Tiphqyuvriwx-Jfzlkfc Work Phone: [phone] clearance/Albumin clearance (S+CSF) [Ratio] MxjejzpaJA-Fegsxavwixkj-Dcelkfp Work Phone: [phone] synthesis rate Calc (S+CSF) [Mass/Time]Canceled VG-Kxrbbarsrtna-Jpbnkpl Work Phone: [phone]/Albumin (CSF) [Mass ratio]Canceled ZO-Yrtwfgwcepvw-Seaghle Work Phone: [phone] bands Elph (CSF) [Interp]Canceled LN-Dggrbnsynlzy-Vkdktkg Work Phone: [phone] bands Elph Curtis (CSF) [Interp]Canceled DT-Uzvwuenqgkev-Ngabwcy Work Phone: [phone] (CSF) [Mass/Vol]66 mg/dLabove high rsbofbbwe85 - 41MD-Csqeakvspfpo-Jpshizu Work Phone: [phone] Panel Informationon {Bands}0-1 UM-Nyhtopyjpxsc-Fkduska Work Phone: [phone]-Vrlxgqhvklql-Lynn Work Phone: [phone]-Yzydvzqytghj-Lynn Work Phone: [phone] Review, CSFon 99-62-9199Whis Review, CSFR.REHANA OO-Dmseegqsznzi-Fdqxwee Work Phone: [phone] on above:By her/his signature above, the Pathologist listed as making the final interpretation certifies that she/he has personally reviewed this case. 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 In [...] was biopsied and excised by Dr. Connor Fiedls the time he had multiple lymph node [...] saw Dr. Ba a neurologist in [facility]. He describes his vision as [...] MG Oral Tablet Vitals Vital Signs Recorded: 26Gpj3434 09:38AM Itweweuvavo11.2 F Heart Rate63 Oecfzpbsgff10 Fkpwdhyl832 Hlbwgwbai79 Blood Pressure Cuff SizeAdult Height5 ft 7.13 in Tgaaxk373 lb 6 oz BMI Rpbjhpgtfg40.05 kg/m2 BSA Calculated1.91 Tobacco Usea) Yes Fall Screeninga) No falls within the last year O2 Adrpeqfcrz19 Pain Scale7 Physical Exam Constitutional - General appearance: No acute distress, well de (more content not included)...NormalUH TouchworksOffice Visit Presurgicalon 81-56-7954Zvklgf Visit PresurgicalDiagnoses/Problems Assessed Weight loss (783.21) (R63.4) Anxiety (300.00) (F41.9) Depression (311) (F32.A) History of high cholesterol (V12.29) (Z86.39) 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 In [...] saw Dr. Ba a neurologist in [facility]. He describes his vision as [...] MG Oral Tablet Vitals Vital Signs Recorded: 08Mlt1120 09:38AM Ncbiuzwugsh29.2 F Heart Rate63 Qutddrjcylx01 Ncuvjmxq251 Zwoulhmep26 Blood Pressure Cuff SizeAdult Height5 ft 7.13 in Vzvtsk203 lb 6 oz BMI Ftsikxsyol80.05 kg/m2 BSA Calculated1.91 Tobacco Usea) Yes Fall Screeninga) No falls within the last year O2 Qafzymdctf71 Pain Scale7 Ph (more content not included)...NormalUH TouchLehigh [facility] W Auto Differential panel (Bld)on 66-77-2945Jawwkkzgy (Bld) [#/Vol]0.06 10*3/uLNINFWilson [address] Hospital Basophils/100 WBC (Bld)0.[address] %[address] HospitalDifferential cell count method Nom (Bld)AutoCleveland ClinicEosinophils (Bld) [#/Vol]0.11 10*3/uLNINFWilson Street HospitalEosinophils/100 WBC (Bld)1.[address] %[address] HospitalErythrocyte distribution width (RBC) [Ratio]12.8 %11.5 - 15.0 %[address] HospitalHematocrit (Bld) [Volume fraction]43.7 %39.0 - 51.0 %[address] HospitalHemoglobin (Bld) [Mass/Vol]14.6 g/dL 13.0 - 17.0 g/dLWilson Street HospitalImmature granulocytes (Bld) [#/Vol]NINFClevelOhio State East HospitalImmature granulocytes/100 WBC (Bld)0.[address] %[address] HospitalLymphocytes (Bld) [#/Vol]1.75 10*3/uLWilson [address] HospitalLymphocytes/100 WBC (Bld)23.7 %[facility] HospitalH (RBC) [Entitic mass]32.7 pg26.0 - 34.0 pgClevelMinneapolis VA Health Care SystemHC (RBC) [Mass/Vol]33.4 g/dL30.5 - 36.0 g/dLSt. Vincent HospitalV (RBC) [Entitic vol]98.0 fL80.0 - 100.0 fLCleveland ClinicMonocytes (Bld) [#/Vol]0.52 10*3/uLNINF [facility] [address] HospitalMonocytes/100 WBC (Bld)7.[address] %[address] HospitalNeutrophils (Bld) [#/Vol]4.92 10*3/[address] HospitalNeutrophils/100 WBC (Bld)66.[address] %[address] HospitalNucleated RBC (Bld) [#/Vol]NINFCleveland ClinicNucleated RBC/100 WBC (Bld) [Ratio]0.0 %/[address] HospitalPlatelet mean volume (Bld) [Entitic vol] 10.8 fL9.0 - 12.7 [facility] ClinicPlatehaverhill pavilion behavioral health hospital (Bld) [#/Vol]246 10*3/[facility] HospitalRBC (Bld) [#/Vol]4.46 10*6/uL4.20 - 6.00 m/[facility] HospitalWBC (Bld) [#/Vol]7.38 10*3/[facility] HospitalThis is an appended report. These results have been appended to a previously verified report.[facility] SouthCT Chest W contrast Tristin 76-83-6211NWRCGNTTNO: 1. Left-sided subcentimeter pulmonary nodules, stable. 2. [...] any questions regarding this interpretation, please call [phone]. If you are unable to reach us at the number above, please feel free to contact [facility] eRadiology at [phone]. MATHEW_DO_NOT_USE_DIVISION OF RADIOLOGY* * *Final Report* * * DATE OF EXAM: Oct 06 2021 8:22AM [facility] 0539 - CT CHEST W IVCON [...] images through the upper abdomen appear stable. Diamond Polisher (topogram) images: No additional findings. ZZZ_DO_NOT_USE_DIVISION OF RADIOLOGYProvider, [facility] [place] - 10/06/2021 * * *Final Report* * * DATE OF EXAM: Oct 06 2021 8:22AM [facility] 0539 - CT CHEST W IVCON [...] images through the upper abdomen appear stable. Diamond Polisher (topogram) images: No additional findings. IMPRESSION IMPRESSION: [...] any questions regarding this interpretation, please call [phone]. If you are unable to reach us at the number above, please feel free to contact [facility] at [phone]. [facility] Tr[place] [id number]: MODERATE DEGENERATIVE CHANGES INVOLVING THE CERVICAL SPINE. [...] any questions regarding this interpretation, please call [phone]. If you are unable to reach us at the number above, please feel free to contact [facility] at [phone]. ZZZ_DO_NOT_USE_DIVISION OF RADIOLOGY* * *Final Report* * * DATE OF EXAM: Oct 06 2021 8:22AM [facility] 0013 - CT NECK SOFT TISSUE [...] bifurcations and carotid siphons. ZZZ_DO_NOT_USE_DIVISION OF RADIOLOGYProvider, [facility] [place] - 10/06/2021 * * *Final Report* * * DATE OF EXAM: Oct 06 2021 8:22AM [facility] [facility] 0013 - CT NECK SOFT TISSUE [...] any questions regarding this interpretation, please call [phone]. If you are unable to reach us at the number above, please feel free to contact [facility] eRadiology at [phone]. [facility] HospitalCT Neck W contrast IVOrdered By: Ccf Provider on 10-06-[address] HospitalComprehensive metabolic 2000 panelOrdered By: Micheal Vizcaino on 06-18-6402Bjrguks [Mass/Vol]4.5 g/dL3.9 - 4.9 g/dLPope Army Airfield ClinicALP [Catalytic activity/Vol]82 U/L38 - 113 U/LCleveland ClinicALT [Catalytic activity/Vol]25 U/L10 - 54 U/LCleveland ClinicAnion gap [Moles/Vol]10 mmol/L9 - 18 mmol/L [facility] ClinicAST [Catalytic activity/Vol]21 U/L14 - 40 U/LCleveland [facility] Bilirubin [Mass/Vol]0.6 mg/dL0.2 - 1.3 mg/dLPope Army Airfield ClinicCalcium [Mass/Vol] 9.5 mg/dL8.5 - 10.2 mg/dLPope Army Airfield ClinicChloride [Moles/Vol]106 mmol/LHigh97 - 105 mmol/LCleveland ClinicCO2 [Moles/Vol]29 mmol/L22 - 30 mmol/LCgood samaritan hospitaland Clinic Creatinine [Mass/Vol]1.01 mg/dL0.73 - 1.22 mg/dLWilson Street HospitalGFR/1.73 sq M.predicted among non-blacks MDRD (S/P/Bld) [...] eGFRmay not accurately reflect actual GFR.Glucose [Mass/Vol]107 mg/pTTebw28 - 99 mg/dLWilson Street HospitalComment on above:The [place] Diabetes Association (ADA) provides guidance for cutoff [...] Standards of Medical Care in Diabetes 2016, [place] [employer]. Diabetes Care. 2016.39(Suppl 1). Interpretation and review of laboratory resultsAbnormalCleveland ClinicPotassium [Moles/Vol]4.2 mmol/L3.7 - 5.1 mmol/LCleveland ClinicProtein [Mass/Vol]6.5 g/dL 6.3 - 8.0 g/dLPope Army Airfield ClinicSodium [Moles/Vol]145 mmol/BIpur012 - 144 mmol/L [facility] HospitalUrea nitrogen [Mass/Vol]10 mg/dL9 - 24 mg/dLMary Rutan HospitalNo Panel Informationon 33-29-7161Ahvdedlbv Study observation (narrative)[facility] HospitalCOVID + FLU Quick Testingon 51-41-7706EYWK-CoV-2 (COVID-19) RNA JER+probe Ql (Unsp spec)NegativeNort [employer] Other COVID + FLU Quick TestingNegativeKissimmee [employer] Other COVID Quick Testingon 56-24-7913CusccaXynrfnteJdcui [employer] Other Basophils Auto (Bld) [#/Vol]on 28-06-1830Gjoglytjf (Bld) [#/Vol]0.0 10*3/uL0.0-0.2FSelect Medical Specialty Hospital [facility] CtrBasophils/100 WBC Auto (Bld)on 04-38-7431Zqopnfxsh/100 WBC (Bld)0.6 %[facility] CtrBlood hemoglobin measurement (mass/volume)on 66-69-2453Edrrhzcvcs (Bld) [Mass/Vol]14.4 g/dL13.0-17.0[facility] CtrBlood leukocytes automated count (number/volume)on 48-68-9039KZX (Bld) [#/Vol]7.4 10*3/uL4.5-11.0 [facility] CtrEosinophils Auto (Bld) [#/Vol]on 09-20-2020 Eosinophils (Bld) [#/Vol]0.1 10*3/uL0.0-0.45[facility] Eosinophils/100 WBC Auto (Bld)on 50-56-3557Crctndvjgjj/100 WBC (Bld)0.9 % [facility] CtrErythrocyte distribution width Auto (RBC) [Ratio] on 40-87-8104Pspxkpapgyg distribution width (RBC) [Ratio]14.6 %12.0-14.8 [facility] CtrHematocrit Auto (Bld) [Volume fraction]on 96-44-0300Aulucubrrz (Bld) [Volume fraction]41.7 %38.8-50.0[facility] CtrLymphocytes Auto (Bld) [#/Vol]on 98-42-0974Awtuprbdepb (Bld) [#/Vol] 1.6 10*3/uL1.00-4.8[facility] CtrLymphocytes/100 WBC Auto (Bld) on 92-92-9355Eezcrfaeyww/100 WBC (Bld)21.3 %[facility]MCH Auto (RBC) [Entitic mass]on 73-21-7972RQB (RBC) [Entitic mass]32.4 pg27.5-35.2 [facility] WestMCHC Auto (RBC) [Mass/Vol]on 65-04-2303OCOL (RBC) [Mass/Vol]34.5 g/dL32.5-35.6FFlower HospitalMCV Auto (RBC) [Entitic vol]on 97-13-7440WXO (RBC) [Entitic vol]93.9 fL83.5-101[facility] CtrMonocytes Auto (Bld) [#/Vol]on 11-16-2317Rezdnhwcm (Bld) [#/Vol]0.6 10*3/uL0.0-0.8[facility] CtrMonocytes/100 WBC Auto (Bld)on 33-76-2008Tkfqndgxi/100 WBC (Bld)8.6 %[facility] Neutrophils Auto (Bld) [#/Vol]on 80-77-6429Nmdtixrwvxt (Bld) [#/Vol]5.1 10*3/uL 1.8-7.7FSelect Medical Specialty Hospital - Cincinnati CtrNeutrophils/100 WBC Auto (Bld)on 09-20-2020 Neutrophils/100 WBC (Bld)68.6 %[facility] CtrOtheron 09-20-2020 Nucleated RBC/100 WBC (Bld) [Ratio]0.0 %0-0.5FSelect Medical Specialty Hospital [facility] Ctr Platelet mean volume Auto (Bld) [Entitic vol]on 92-54-8497Oqyznbbv mean volume (Bld) [Entitic vol]9.3 fL6.6-10.1FSelect Medical Specialty Hospital - [facility] CtrPlatelets Auto (Bld) [#/Vol]on 25-79-4792Zrgvgemmv (Bld) [#/Vol]182 10*3/yW765-357OiotxmghqDoctors Hospital CtrRBC Auto (Bld) [#/Vol]on 52-07-4122NCL (Bld) [#/Vol]4.44 10*6/uL3.90-5.60[facility] CtrBody fluid albumin measurement (mass/volume)on 24-78-7984Jqahqlk (Body fld) [Mass/Vol]4.3 g/dL3.2-5.5FSelect Medical Specialty Hospital - [facility] CtrCholesterol [Mass/volume] in Serum or Plasmaon 09-13-2020 Cholesterol [Mass/Vol]219 mg/lQ898-704ZscdujuikDoctors Hospital CtrComment on above:Chol less than 200 mg/dl low riskChol 201-239 mg/dl borderline riskChol 240 mg/dl and greater high riskCholesterol in LDL Calc [Mass/Vol]on 09-13-2020 Cholesterol in LDL [Mass/Vol]149 mg/dL0-100[facility] CtrComment on above:LDL ATP III CLASSIFICATIONLDL less than 100 mg/dL OptimalLDL 100-129 mg/dL Near or above vnqcgxuRHW915-541 mg/dL Borderline highLDL 160-189 mg/dL HighLDL greater than 189 mg/dL Very highCholesterol in VLDL Calc [Mass/Vol]on 14-15-5814Wdtncrvfyea in VLDL [Mass/Vol]28 mg/dLDoctors Hospital Ctr Creatinine and Glomerular filtration rate.predicted panel (S/P/Bld)on 09-13-2020 Creatinine [Mass/Vol]0.89 mg/dL0.64-1.27[facility] CtrGFR/1.73 sq M.predicted among non-blacks MDRD (S/P/Bld) [Vol rate/Area]on 09-13-2020 GFR/1.73 sq M predicted among non-blacks MDRD (S/P/Bld) [Vol rate/Area]> 60 mL/MinDoctors Hospital CtrGlobulin Calc (S) [Mass/Vol]on 09-13-2020 Globulin (S) [Mass/Vol]2.0 g/dLDoctors Hospital CtrNo Panel Informationon 42-13-5874Xkybkpghl GFR ()> 60 mL/MinDoctors Hospital CtrComment on above:GFR estimated reference range: According to KDOQI guidelines, <60 ml/min/1.73m2 is sufficient todiagnose a patient with chronic kidney disease.Otheron 99-39-4880FVG/1.73 sq M.predicted MDRD (S/P/Bld) [Vol rate/Area]> 60 mL/MinDoctors Hospital CtrComment on above:GFR estimated reference range: According to KDOQI guidelines, <60 ml/min/1.73m2 is sufficient todiagnose a patient with chronic kidney disease.Pharmacy Creatinine Clearance (ChemN/[facility] CtrProstate Specific Antigen Screen 0.480 ng/mL0.000-4.000[facility] CtrProtein [Mass/volume] in Serum or Plasmaon 65-87-4418Akdcwka [Mass/Vol]6.3 g/dL6.1-7.9[facility] CyvVPRR-AcK-7 (COVID-19) IgG Ab [Presence] in Serum or Plasma by Immunoassayon 44-74-9573BKJY-CoV-2 (COVID-19) IgG Ab [Presence] in Serum or Plasma by ImmunoassayPositiveNegativeLake County Memorial Hospital - WestComment on above:Results suggest recent or prior infection with SARS-CoV-2.Correlation with epidemiologic risk factors and otherclinical and laboratory findings is recommended. Serologicresults should not be used as the sole basis to diagnose orexclude recent SARS-CoV-2 infection. False positive resultsinfrequentlyoccur due to prior infection with other humanCoronaviruses.This assay was performed using the [employer] Liaison(R)SARS-CoV-2 S1/S2 IgG assay.This assay detects antibodies against SARS-CoV-2 spikeprotein including the receptor binding domain (RBD).Performed at: [address] [id number] Director: Florencio Wu PhD, Phone: [phone]-BfB-1 (COVID-19) IgG IA QlPositiveNegUniversity Hospitals Health System CtrComment on above:Results suggest recent or prior infection with SARS-CoV-2.Correlation with epidemiologic risk factors and otherclinical and laboratory findings is recommended. Serologicresults should not be used as the sole basis to diagnose orexclude recent SARS-CoV-2 infection. False positive resultsinfrequentlyoccur due to prior infection with other humanCoronaviruses.This assay was performed using the [employer] Liaison(R)SARS-CoV-2 S1/S2 IgG assay.This assay detects antibodies against SARS-CoV-2 spikeprotein including the receptor binding domain (RBD).Performed at: [address] [id number] Director: Florencio Wu PhD, Phone: [phone] or plasma alanine aminotransferase measurement without P-5'-P (enzymatic activion 14-92-8212CLH No additional P-5'-P [Catalytic activity/Vol]19 U/G11-65LwcjhmxmaDoctors Hospital CtrSerum or plasma albumin/globulin mass ratioon 09-13-2020 Albumin/Globulin [Mass ratio]2.2 {ratio}[facility] CtrSerum or plasma alkaline phosphatase measurement (enzymatic activity/volume)on 09-13-2020 ALP [Catalytic activity/Vol]53 U/T66-20BkmsstmtmDoctors Hospital CtrSerum or plasma aspartate aminotransferase measurement (enzymatic activity/volume)on 95-98-7135ODF [Catalytic activity/Vol]22 U/G48-26FdqewvysfLake County Memorial Hospital - West Serum or plasma calcium measurement (mass/volume)on 88-55-7124Pyeiohv [Mass/Vol] 9.1 mg/dL8.2-10.2FSelect Medical Specialty Hospital - Cincinnati CtrSerum or plasma chloride measurement (moles/volume)on 14-94-5648Atxjwzfg [Moles/Vol]105 mmol/L95-114 [facility] CtrSerum or plasma glucose measurement (mass/volume) on 96-93-5146Sgpjnnh [Mass/Vol]97 mg/vT15-246FlyztnebeLake County Memorial Hospital - West Comment on above:ADA recommended reference rangeRandom Glucose Reference Range is dependent on time and content of last meal. Glucose of more than 200 mg/dL in a nonstressed, ambulatory subject supports the diagnosisof Diabetes Mellitus. Serum or plasma high density lipoprotein (HDL) cholesterol measurementon 33-27-9039Dvbxvdckhsz in HDL [Mass/Vol]41 mg/tC99-55XnwggyyjkDoctors Hospital CtrComment on above:HDL CHOL ATP-III CLASSIFICATION Cardiovascular RiskHDL > or equal to 60 mg/dL LOWHDL < 40 mg/dL HIGHSerum or plasma potassium measurement (moles/volume)on 30-89-8572Lkgmwujsu [Moles/Vol]4.2 mmol/L3.5-5.1FSelect Medical Specialty Hospital - Cincinnati CtrSerum or plasma sodium measurement (moles/volume)on 22-65-9927Lzlftu [Moles/Vol]135 mmol/Y188-849QmkqsbcwjDoctors Hospital CtrSerum or plasma thyroid stimulating hormone (TSH) measurement by high sensitivity met on 77-37-0644DNO Qn1.66 u[iU]/mL0.45-5.33[facility] CtrSerum or plasma total bilirubin measurement (mass/volume)on 88-80-8805Twiwxorny [Mass/Vol]0.9 mg/dL0.3-1.2FSelect Medical Specialty Hospital - Cincinnati CtrSerum or plasma total carbon dioxide measurement (moles/volume)on 81-70-3269CR2 [Moles/Vol]22.5 mmol/L 22.0-30.0[facility] CtrSerum or plasma total cholesterol/high density lipoprotein (HDL) cholesterol mass gia 09-13-2020 Cholesterol.total/Cholesterol in HDL [Mass ratio]5.3 {ratio}[facility] CtrSerum or plasma urea nitrogen measurement (mass/volume)on 09-13-2020 Urea nitrogen [Mass/Vol]12 mg/dL9-23[facility] CtrTSH DL <= 0.005 mIU/L Qnon 49-89-7185KRJ Qn1.66 m[IU]/L0.45-5.33[facility] CtrTriglyceride [Mass/volume] in Serum or Plasmaon 43-20-7739Kjgpqfdiakpz [Mass/Vol]144 mg/gN68-995BtrvvrnpnDoctors Hospital CtrComment on above:TRIG ATP III CLASSIFICATIONTRIG less than 150 mg/dL NormalTRIG 150-199 mg/dL Borderline highTRIG 200-500 mg/dL High TRIG greater than 500 mg/dL Very highStandard traceable to the Center for Disease Conrtrol and Prevention (CDC) test method. History and Physicalon 65-31-4722Zsdfcaw and PhysicalHOSPITAL REGULATIONS: ALL Positive Important Negative [...] eye. Coleen Grajeda M.D. aek Dictated: 04/14/2019 #[id number] Typed 04/14/2019 #[id number] cc: Coleen Grajeda M.D.[facility] HospitalComment on above:Result Comment: Electronically Signed By: Coleen Grajeda MD.br\Date and Time Signed: 04/18/19 09:54 EDTOperative Reporton 91-68-5673Omtjoewur ReportDate of Surgery: 04/14/2019 SURGEON: Coleen Grajeda [...] and inferior fornices of the eye. A Class Messengeran manometer was set on the eye at [...] condition. Coleen Grajeda M.D. 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 Name: SHANTEL MELENDEZ/Sex: 1960 Male Med Rec #: [id number] Physician: Coleen Grajeda MD Financial #: [id number] Pt. Type: A Room/Bed: [facility]2/ Admit/Disch: 04/14/19 12:59:00 - 04/14/19 16:00:00 [...] - Primary Scrub - Primary Manager Of Network - Primary Time In 04/14/19 14:55:00 04/14/19 [...] GOODEN, RN, Tierra Role Performed Manager Of Network - Primary Manager Of Network - Relief Time In 04/14/19 14:55:00 04/14/19 [...] Unable to Visualize, Outcomes Met? Yes Warm, [place], Dry Last Modified By: Johnathon Karimi RN [...] RN Patient Status Stable Skin. 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 Oxygen in [...] LENS(Left) Implant Identification FT Description MONT[employer] IOL [id number] [employer] Serial Number [id number] SIZE 21.0 [[id number] 21.0][F] Lot Number [id number] Qc Chemist FT-[employer] Catalog ?# [id number] 21.0[F] Expiration Date 10/16/23 Unique Device [id number] Identifier (BERNARD) Usage Data FT Implant Site [...] RN 04/14/19 15:16 Asya Alves CST 04/15/19 14:44NoBlanchard Valley Health System [facility] HospitalInpatient Patient Summaryon 50-32-6465Tuonhbdie Patient SummaryL[facility] Hospital Clinical Discharge Instructions PERSON INFORMATION Name: SHANTEL MELENDEZ PHYSICIANS Admitting Physician: Coleen Grajeda MD Attending Physician: Coleen Grajeda MD PCP: JILLIAN BARONE DO Discharge Diagnosis: Cataract Comment: PATIENT EDUCATION INFORMATION Instructions: Medication Leaflets: Follow up: With: Address: When: Coleen Grajeda [address] [place] [address] [facility] () Comments: Call physician if symptoms worsen Keep scheduled appointment MEDICATION LIST Comment:[facility]Main OR PACU II Recordon 52-90-2111Sliv OR PACU II RecordPACU Phase II Document Type FT Summary Primary Physician: Coleen Grajeda MD Finalized Date/Time: 04/14/19 17:54:42 Pt. Name: SHANTEL MELENDEZ D.O.B./Sex: 1960 Male Med Rec #: [id number] Physician: Coleen Grajeda MD Financial #: [id number] Pt. Type: A Room/Bed: [facility]2/01 Admit/Disch: 04/14/19 12:59:23 - Institution: Case [...] Signatures Signed By: Lizeth Rush RN 04/14/19 17:54NoalSelect Medical Specialty Hospital - [facility] NorthMain OR Preoperative Recordon 80-45-0562Xeei OR Preoperative RecordPreOp Document Type FT Summary Primary Physician: Coleen Grajeda MD Finalized Date/Time: 04/14/19 15:14:03 Pt. Name: SHANTEL MELENDEZ Fatimah /Sex: 1960 Male Med Rec #: [id number] Physician: Coleen Grajeda MD Financial #: [id number] Pt. Type: A Room/Bed: [place] [address] Admit/Disch: 04/14/19 12:59:23 - Institution: Case Times [...] Signatures Signed By: Johnathon Karimi RN 04/14/19 15:14NoBlanchard Valley Health System [facility] HospitalPatient Education - Texton 98-95-5889Oksinan Education - TextUC [facility] Vital Signs Date TimeVital SignValuePerforming FwqspiplxWgjncxta20-80-9201 13:58-0500Body qjmalh980.72 cmBreaidan SmartProcure DO Work Phone: [facility]11-10-2025 13:58-0500 Body mass index (BMI) [Ratio]24.5 kg/d4Iqpph Mercateos DO Work Phone: [facility]11-10-2025 13:58-0500 Body icrago14.02 kgBrett Mercateos DO Work Phone: [facility]11-10-2025 13:58-0500 Diastolic blood mm[Hg]Griselda Andreas DO Work Phone: [facility]11-10-2025 13:58-0500 Heart rate76 /minBrett Andreas DO Work Phone: [phone]11-10-2025 13:58-0500 Respiratory rate18 /minBrett Kuns DO Work Phone: [phone]11-10-2025 13:58-0500 SaO2% (BldA) [Mass fraction]98 %Griselda Kuns DO Work Phone: [phone]11-10-2025 13:58-0500 Systolic blood sjkliyfj703 mm[Hg]Griselda Kuns DO Work Phone: [phone] [place], [place] 8561810-15-2025 14:04-0400 Body zwtocf064.72 cmBrett Kuns DO Work Phone: [phone] [place], [place] 8561810-15-2025 14:04-0400 Body mass index (BMI) [Ratio]24.1 kg/e4Eoqyc Kuns DO Work Phone: [phone] [place], [place] 8561810-15-2025 14:04-0400 Body tolffk66.12 kgBrett Kuns DO Work Phone: [phone] [place], [place] 8561810-15-2025 14:04-0400 Diastolic blood jtdnzasc24 mm[Hg]Griselda Kuns DO Work Phone: [phone])[address] [place], [place] 8561810-15-2025 14:04-0400 Heart htkd342 /minBrett Kuns DO Work Phone: [phone] [place], [place] 4712410-15-2025 14:04-0400 Respiratory rate16 /minBrett Kuns DO Work Phone: [phone] [place], [place] 4712410-15-2025 14:04-0400 SaO2% (BldA) [Mass fraction]99 %Griselda Kuns DO Work Phone: [phone])[address]10-15-2025 14:04-0400 Systolic blood raqcrxoi195 mm[Hg]Griselda Kuns DO Work Phone: [phone])[address] [place], [place] 8561809-04-2025 11:25-0400 Body drvuod931.72 cmBrett Kuns DO Work Phone: [phone])[address]09-04-2025 11:25-0400 Body mass index (BMI) [Ratio]24.1 kg/i1Uzjku Kuns DO Work Phone: [phone])[address] [place], [place] 8561809-04-2025 11:25-0400 Body duisjj19.12 kgBrett Kuns DO Work Phone: [phone] [place], [place] 8561809-04-2025 11:25-0400 Diastolic blood occwjpzc10 mm[Hg]Griselda Kuns DO Work Phone: [phone] [place], [place] 8561809-04-2025 11:25-0400 Heart wykk521 /minBrett Andreas DO Work Phone: [phone])[address] [place], [place] 8561809-04-2025 11:25-0400 Respiratory rate16 /minBreaidan Eckerts DO Work Phone: [phone] [place], [place] 8561809-04-2025 11:25-0400 SaO2% (BldA) [Mass fraction]98 %Griseldaaidan Eckerts DO Work Phone: [phone] [place], [place] 8561809-04-2025 11:25-0400 Systolic blood nqfcvvoj126 mm[Hg]Griselda Kuns DO Work Phone: [phone] [place], [place] 8561808-20-2025 14:41-0400 Body mass index (BMI) [Ratio]24.18 kg/o0VjkporjOziel Cadena MD Work Phone: [facility] HospitalYhtxbbeefo23-11-8097 14:41-0400Body vufqux00.12 kgOziel Cadena MD Work Phone: [facility] HospitalCsoqjarpfj62-94-7275 14:41-0400Diastolic blood herhhgkp78 mm[Hg]Oziel Cadena MD Work Phone: [facility] HospitalTdzksvtevf59-83-5752 14:41-0400Heart gqam691 /min Oziel Cadena MD Work Phone: [phone] [place], [place] 7985508-20-2025 14:41-0400Systolic blood hslwpili651 mm[Hg]Oziel Cadena MD Work Phone: [phone] HospitalKntfxomqyt68-73-3445 15:20-0400Body oozlod782.72 cmBrett Kuns DO Work Phone: [facility]07-28-2025 15:20-0400 Body mass index (BMI) [Ratio]27 kg/l3Dfxzt Kuns DO Work Phone: [facility]07-28-2025 15:20-0400 Body manshv84.73 kgBrett Kuns DO Work Phone: [phone]07-28-2025 15:20-0400 Diastolic blood yluxdoul99 mm[Hg]Griselda Kuns DO Work Phone: [facility]07-28-2025 15:20-0400 Heart rate76 /minBrett Kuns DO Work Phone: [phone]07-28-2025 15:20-0400 Systolic blood ucszgzzk116 mm[Hg]Griselda Kuns DO Work Phone: [phone]07-09-2025 14:12-0400 Body mass index (BMI) [Ratio]25.09 kg/c7KxolsgfOziel Cadena MD Work Phone: [phone] HospitalDihskyxxrn84-27-7260 14:12-0400Body .84 kgOziel Cadena MD Work Phone: [phone] HospitalIewysqsrig42-60-9651 14:12-0400Diastolic blood rtcytjzl57 mm[Hg]Oziel Cadena MD Work Phone: [phone] [place], [place] [address]Qzqcmrwmct68-66-8928 14:12-0400Heart rate85 /min Oziel Cadena MD Work Phone: [phone] HospitalGbsmqgiryo97-11-6727 14:12-0400Systolic blood tojoibaz801 mm[Hg]Oziel Cadena MD Work Phone: [facility] HospitalFejxgimqls03-65-0061 14:04-0400Body xxgapf286.72 cmBrett Kuns DO Work Phone: [phone]06-04-2025 14:04-0400 Body dlkismaqbpb628.7 [degF]Grisedla Kuns DO Work Phone: [phone] [place], [place] 4712406-04-2025 14:04-0400 Heart rate96 /minBrett Kuns DO Work Phone: [phone] [address]06-04-2025 14:04-0400 Respiratory rate18 /minBrett Kuns DO Work Phone: [phone] [address]06-04-2025 14:04-0400 SaO2% (BldA) [Mass fraction]99 %Griselda Kuns DO Work Phone: [phone])[address]06-02-2025 14:03-0400 Body qatvzz459.72 cmBrett Kuns DO Work Phone: 1([phone] [place], [place] 4712406-02-2025 14:03-0400 Body mass index (BMI) [Ratio]26.3 kg/j6Ffaqd Kuns DO Work Phone: 1(017)3-[address] [place], [place] 4712406-02-2025 14:03-0400 Body tbacji70.47 kgBrett Kuns DO Work Phone: 1(007)8-[address] [place], [place] 4712406-02-2025 14:03-0400 Diastolic blood yjhepsll38 mm[Hg]Griselda Kuns DO Work Phone: 1(060)9-[address] [place], [place] 4712406-02-2025 14:03-0400 Heart lcjb479 /minBrett Kuns DO Work Phone: 1([phone] [place], [place] 4712406-02-2025 14:03-0400 Systolic blood ohplknpm494 mm[Hg]Griselda Kuns DO Work Phone: 1(801)[address]05-21-2025 10:30-0400 Diastolic blood foszwoex17 mm[Hg]Griselda Kuns DO Work Phone: [facility]05-21-2025 10:30-0400 Heart rate71 /minBrett Kuns DO Work Phone: 1(464)[address]05-21-2025 10:30-0400 Respiratory rate20 /minBrett Kuns DO Work Phone: 1(532)0-[address] [place], [place] 4712405-21-2025 10:30-0400 SaO2% (BldA) [Mass fraction]98 %Griselda Kuns DO Work Phone: 1([phone])[address]05-21-2025 10:30-0400 Systolic blood lmmryzuu378 mm[Hg]Griselda Kuns DO Work Phone: 1(996)[address] [place], [place] 8561805-21-2025 07:12-0400 Body .72 cmBrett Kuns DO Work Phone: 1(937)[address] [place], [place] 8561805-21-2025 07:12-0400 Body orzyyq16.11 kgBrett Kuns DO Work Phone: 1(681)[address]05-12-2025 09:57-0400 Body .72 cmBrett Kuns DO Work Phone: 1(091)[address] [place], [place] 8561805-12-2025 09:57-0400 Body mass index (BMI) [Ratio]26.4 kg/o3Zpwvj Kuns DO Work Phone: 1(875)[address]05-12-2025 09:57-0400 Body iwbucp69.92 kgBrett Kuns DO Work Phone: 1(637)[address]05-12-2025 09:57-0400 Diastolic blood ottnrksd98 mm[Hg]Griselda Kuns DO Work Phone: 1(598)[address]05-12-2025 09:57-0400 Heart rate64 /minBrett Kuns DO Work Phone: 1(748)3-[address] [place], [place] 4712405-12-2025 09:57-0400 Respiratory rate18 /minBrett Kuns DO Work Phone: [facility]05-12-2025 09:57-0400 SaO2% (BldA) [Mass fraction]98 %Griselda Kuns DO Work Phone: [facility]05-12-2025 09:57-0400 Systolic blood boggynpi305 mm[Hg]Griselda Kuns DO Work Phone: [facility]04-28-2025 09:06-0400 Body .7 cmDoretha Harris MD Work Phone: [phone] [place], [place] 6292304-28-2025 09:06-0400 Body mass index (BMI) [Ratio]25.54 kg/l1IxjpwwmDoretha Harris MD Work Phone: [phone]04-28-2025 09:06-0400 Body .2 kgDoretha Harris MD Work Phone: [phone] [place], [place] [id number] 09:06-0400 Diastolic blood qnfdniuy12 mm[Hg]Doretha Harris MD Work Phone: [phone] [place], [place] [id number] 09:06-0400 Heart rate75 /minDoretha Harris MD Work Phone: [phone] [place], [place] 6292304-28-2025 09:06-0400 Systolic blood bptgfwuu310 mm[Hg]Doretha Harris MD Work Phone: [phone] [place], [place] 6292304-25-2025 13:05-0400 Body gkdsih826.72 cmBrett Kuns DO Work Phone: [facility]04-25-2025 13:05-0400 Body mass index (BMI) [Ratio]25.4 kg/t1Ttfbl Kuns DO Work Phone: [facility]04-25-2025 13:05-0400 Body oqmsdo83.74 kgBrett Kuns DO Work Phone: [phone]04-25-2025 13:05-0400 Diastolic blood peubqgex62 mm[Hg]Griselda Kuns DO Work Phone: 1(849)[address]04-25-2025 13:05-0400 Heart rate76 /minBrett Kuns DO Work Phone: 1(354)[address]04-25-2025 13:05-0400 Systolic blood eejyieov05 mm[Hg]Griselda Kuns DO Work Phone: 1(599)[address]04-21-2025 18:42-0400 Diastolic blood mm[Hg]Griselda Kuns DO Work Phone: 1(350)[address] [place], [place] 8561804-21-2025 18:42-0400 Heart rate80 /minBrett Kuns DO Work Phone: 1(758)[address] [place], [place] 8561804-21-2025 18:42-0400 Respiratory rate16 /minBrett Kuns DO Work Phone: 1(710)[address]04-21-2025 18:42-0400 SaO2% (BldA) [Mass fraction]98 %Griselda Kuns DO Work Phone: 1(652)[address]04-21-2025 18:42-0400 Systolic blood zubkidqe316 mm[Hg]Griselda Kuns DO Work Phone: 1(899)1-[address] [place], [place] 4712404-21-2025 14:04-0400 Body .72 cmBrett Kuns DO Work Phone: 1(242)5-[address] [place], [place] 4712404-21-2025 14:04-0400 Body cegeilulxdm64.2 [degF]Griselda Kuns DO Work Phone: 1(520)[address]04-21-2025 14:04-0400 Body fslfyt36.9 kgBrett Kuns DO Work Phone: 1(666)[address]04-05-2025 14:00-0400 Heart rate88 /minBrett Andreas DO Work Phone: [facility]04-05-2025 14:00-0400 Respiratory rate20 /minBrett Andreas DO Work Phone: 1(469)5-[address] [place], [place] 4712404-05-2025 14:00-0400 SaO2% (BldA) [Mass fraction]93 %Griselda Andreas DO Work Phone: 1(072)6-[address] [place], [place] 4712404-05-2025 13:48-0400 Body vkhylunasyu93.4 [degF]Griselda Eckerts DO Work Phone: 1(260)[address] [place], [place] 8561804-05-2025 13:48-0400 Diastolic blood uazqhbso09 mm[Hg]Griselda Kuns DO Work Phone: 1(584)[address]04-05-2025 13:48-0400 Systolic blood nabqupct803 mm[Hg]Griselda Andreas DO Work Phone: 1(100)[address] [place], [place] 8561804-05-2025 10:55-0400 Body cbcqeo744.72 cmKatytt Andreas DO Work Phone: 1(238)[address] [place], [place] 8561804-05-2025 10:55-0400 Body ytpzrj77.9 kgKatytt Andreas DO Work Phone: 1(457)[address] [place], [place] 8561803-27-2025 10:46-0400 Body mass index (BMI) [Ratio]27.06 kg/l7LwtjhqbOziel Cadena MD Work Phone: [facility] HospitalWinhmmpkxf51-37-4441 10:46-0400Body navyhj40.74 kgOziel Cadena MD Work Phone: [facility] HospitalDpifrbiyks23-72-9780 10:46-0400Diastolic blood mm[Hg]Oziel Cadena MD Work Phone: [facility] HospitalCpxiludycl77-14-0046 10:46-0400Heart rate61 /min Oziel Cadena MD Work Phone: 1([phone] HospitalHywmhyktar71-33-2280 10:46-0400Systolic blood gnnsnuzx536 mm[Hg]Oziel Cadena MD Work Phone: [facility] HospitalXxomiriwtr17-11-4102 09:22-0400Body effxmp989.72 cmBrett Kuns DO Work Phone: 1(930)[address] [place], [place] 8561803-27-2025 09:22-0400 Body mass index (BMI) [Ratio]28.1 kg/u5Nxkko Kuns DO Work Phone: 1(884)[address]03-27-2025 09:22-0400 Body qzeirnrucif54.6 [degF]Griselda Kuns DO Work Phone: 1(058)[address] [place], [place] 8561803-27-2025 09:22-0400 Body vuikuy08 kgBrett Kuns DO Work Phone: 1(542)[address] [place], [place] 8561803-27-2025 09:22-0400 Diastolic blood sukbpran23 mm[Hg]Griselda Kuns DO Work Phone: 1(340)[address]03-27-2025 09:22-0400 Heart rate78 /minBrett Kuns DO Work Phone: 1(066)[address]03-27-2025 09:22-0400 Respiratory rate16 /minBrett Kuns DO Work Phone: 1(097)[address] [place], [place] 8561803-27-2025 09:22-0400 SaO2% (BldA) [Mass fraction]98 %Griselda Kuns DO Work Phone: 1(095)6-[address] [place], [place] 4712403-27-2025 09:22-0400 Systolic blood xyltsbnh512 mm[Hg]Griselda Kuns DO Work Phone: 1(456)[address]02-13-2025 13:26-0500 Body mass index (BMI) [Ratio]27.37 kg/e1AgdlpqsOziel Cadena MD Work Phone: [facility] HospitalAmwhdjuilh02-10-7566 13:26-0500Body gxiwfo12.65 kgOziel Cadena MD Work Phone: [facility] HospitalIprlcexesn28-92-2277 13:26-0500Diastolic blood trondvxj82 mm[Hg]Oziel Cadena MD Work Phone: [facility] HospitalUhpcmnbenk62-69-1256 13:26-0500Heart rate81 /min Oziel Cadena MD Work Phone: [facility] HospitalVkpdfhivmq56-76-2477 13:26-0500Systolic blood shjjriod934 mm[Hg]Oziel Cadena MD Work Phone: [facility] HospitalKxqpcqqtvp67-99-5216 09:54-0500Body tteifl779.72 cmBrett Kuns DO Work Phone: 1(299)[address]01-16-2025 09:54-0500 Body mass index (BMI) [Ratio]28.4 kg/t2Qwbwb Kuns DO Work Phone: 1(934)[address]01-16-2025 09:54-0500 Body aamplk70.82 kgBrett Kuns DO Work Phone: 1(656)[address]01-16-2025 09:54-0500 Diastolic blood vqfaarmv95 mm[Hg]Griselda Kuns DO Work Phone: 1(267)[address]01-16-2025 09:54-0500 Heart rate81 /minBrett Kuns DO Work Phone: 1(991)5-[address] [place], [place] 4712401-16-2025 09:54-0500 Respiratory rate18 /minBrett Kuns DO Work Phone: 1(178)9-[address] [place], [place] 4712401-16-2025 09:54-0500 SaO2% (BldA) [Mass fraction]98 %Griselda Kuns DO Work Phone: 1(544)[address]01-16-2025 09:54-0500 Systolic blood bxdiybfw301 mm[Hg]Griselda Kuns DO Work Phone: 1(482)[address]01-15-2025 14:18-0500 Body mass index (BMI) [Ratio]28.28 kg/m9XmbgncvOziel Cadena MD Work Phone: 1(546)[address]01-15-2025 14:18-0500Body .37 kgOziel Cadena MD Work Phone: 1(691)[address] [place], [place] 7985501-15-2025 14:18-0500Diastolic blood mujbwrbf68 mm[Hg]Oziel Cadena MD Work Phone: 1(162)[address] [place], [place] 7985501-15-2025 14:18-0500Heart rate86 /min Oziel Cadena MD Work Phone: 1(315)[address] [place], [place] 7985501-15-2025 14:18-0500Systolic blood mm[Hg]Oziel Cadena MD Work Phone: 1(690)[address] [place], [place] 7985501-13-2025 08:56-0500Body jnujdg282.7 cmDoretha Harris MD Work Phone: 1(868)[address] [place], [place] 2345201-13-2025 08:56-0500 Body mass index (BMI) [Ratio]27.37 kg/m4ThiqxlgDoretha Harris MD Work Phone: 1(348)[address] [place], [place] 2345201-13-2025 08:56-0500 Body ykgzna19.65 kgDoretha Harris MD Work Phone: 1(232)[address] [place], [place] 2345201-13-2025 08:56-0500 Diastolic blood mm[Hg]Doretha Harris MD Work Phone: 1(415)[address] [place], [place] 2345201-13-2025 08:56-0500 Heart rate75 /minDoretha Harris MD Work Phone: 1(842)[address] [place], [place] 2345201-13-2025 08:56-0500 Systolic blood tqdkzibw993 mm[Hg]Doretha Harris MD Work Phone: 1(530)[address] [place], [place] 2345212-04-2024 14:04-0500 Body pvluwv893.7 cmOziel Cadena MD Work Phone: 1(555)[address] [place], [place] 7985512-04-2024 14:04-0500Body mass index (BMI) [Ratio]26.46 kg/p1ExbtnlnOziel Cadena MD Work Phone: [facility] HospitalPxrgbttipd30-97-4518 14:04-0500Body .93 kgOziel Cadena MD Work Phone: [facility] HospitalQfcbwqfiof75-59-3115 14:04-0500Diastolic blood pwtolafv07 mm[Hg]Oziel Cadena MD Work Phone: [facility] HospitalKgaaicrqti17-06-5330 14:04-0500Systolic blood accyshyh163 mm[Hg]Oziel Cadena MD Work Phone: [facility] HospitalPrragmlwuu18-27-7540 09:48-0500Body zndois747.72 cm[facility]11-11-2024 09:48-0500Body mass index (BMI) [Ratio]27 kg/h4UooqiddweTrumbull Memorial Hospital11-11-2024 09:48-0500Body weight 80.73 kgTr[facility]ull [facility] Hospital11-11-2024 09:48-0500Diastolic blood rfbexcia95 mm[Hg][facility]11-11-2024 09:48-0500Heart rate61 /[facility]11-11-2024 09:48-0500Respiratory rate18 /[facility]11-11-2024 09:48-5755PaA8% (BldA) [Mass fraction]96 %[facility]11-11-2024 09:48-0500 Systolic blood cfnucgfz352 mm[Hg][facility]10-24-2024 12:11-0400Body beioikozwtn07.1 [degF]Doretha Harris MD Work Phone: [facility]10-24-2024 12:11-0400 Diastolic blood hsxpuauy19 mm[Hg]Doretha Harris MD Work Phone: [facility]10-24-2024 12:11-0400 Heart rate82 /Luanne Harris MD Work Phone: 1(216)[address] [place], [place] 4033610-24-2024 12:11-0400 Respiratory rate17 /minDoretha Harris MD Work Phone: 1(216)[address] [place], [place] 4033610-24-2024 12:11-0400 Systolic blood pdqtikgg037 mm[Hg]Doretha Harris MD Work Phone: 1(216)[address] [place], [place] 4033610-24-2024 09:20-0400 SaO2% (BldA) [Mass fraction]93 %Doretha Harris MD Work Phone: 1(216)[address] [place], [place] 4033610-23-2024 15:07-0400 Body xldajahwlgn46Whpetyj Zhou MD Work Phone: 1(216)[address] [place], [place] 4033610-23-2024 15:07-0400 SaO2% (BldA) [Mass fraction]100 %Doretha Harris MD Work Phone: 1(216)[address] [place], [place] 4033610-23-2024 14:47-0400 Body zfinumbyhlh83.0 degrees CelsiusSumma Health Wadsworth - Rittman Medical CenterComment on above:Performed By: #### [id number] #### TITUS Mercado ([id number]) [facility] ([facility]) [address] [place] [address]-23-2024 14:47-4080RyT4% (BldA) [Mass fraction]100 %SHIMON [facility] HospitalComment on above:Performed By: #### [id number] #### TITUS Mercado ([id number]) [facility] ([facility]) [address] [place], [place] 3340810-23-2024 12:11-0400Body ccevea777.7 cmDoretha Harris MD Work Phone: 1(216)[address] [place], [place] 4033610-23-2024 12:11-0400 Body mass index (BMI) [Ratio]27.12 kg/y9XmnzhtlDoretha Harris MD Work Phone: 1(216)[address] [place], [place] 4033610-23-2024 12:11-0400 Body yrnrbh95.9 kgDoretha Harris MD Work Phone: [facility]10-15-2024 10:47-0400 Body hwhewb607.72 cmTr[facility]10-15-2024 10:47-0400Body mass index (BMI) [Ratio]27.2 kg/j4QcxrhosnuTrumbull Memorial Hospital10-15-2024 10:47-0400Body qjixvf98.19 kgTrumbull [facility] Hospital10-15-2024 10:47-0400Diastolic blood pkipyqit39 mm[Hg][facility] 04-01-2024 10:47-0400Heart rate50 /[facility] 04-01-2024 10:47-0400Respiratory rate16 /[facility] 04-01-2024 10:47-4544JcG8% (BldA) [Mass fraction]99 %[facility]10-15-2024 10:47-0400Systolic blood axrzrzmj111 mm[Hg][facility]08-15-2024 10:24-0400Body ifyqyx817.72 cmTrumbull [facility] Hospital08-15-2024 10:24-0400Body mass index (BMI) [Ratio]27.3 kg/m2 [facility]08-15-2024 10:24-0400Body fezxiv55.64 kg [facility]08-15-2024 10:24-0400Diastolic blood wkbdvnig83 mm[Hg][facility]08-15-2024 10:24-0400Heart rate75 /min [facility]08-15-2024 10:24-0400Respiratory rate18 /min [facility]08-15-2024 10:24-0390PxB2% (BldA) [Mass fraction]98 %[facility]08-15-2024 10:24-0400Systolic blood mm[Hg][facility]07-18-2024 13:36-0400 Body jgbuaq559.7 cmDoretha Harris MD Work Phone: [facility]07-18-2024 13:36-0400 Body mass index (BMI) [Ratio]27.43 kg/g7XozupuqDoretha Harris MD Work Phone: 1(626)866-[address] [place], [place] 6292307-18-2024 13:36-0400 Body awinrk91.83 kgDoretha Harris MD Work Phone: 1(205)461-[address] [place], [place] 6292307-18-2024 13:36-0400 Diastolic blood mm[Hg]Doretha Harris MD Work Phone: 1(294)283-[address] [place], [place] 6292307-18-2024 13:36-0400 Heart rate80 /Luanne Harris MD Work Phone: 1(291)[address] [place], [place] 6292307-18-2024 13:36-0400 Systolic blood byzfndcw767 mm[Hg]Doretha Harris MD Work Phone: 1(918)877-[address] [place], [place] 6292306-27-2024 10:00-0400 Body mass index (BMI) [Ratio]27.1 kg/q3TwqlikhHelder Jack MD Work Phone: 1(446)179-[facility]06-27-2024 10:00-0400 Body eowtzrdxnyl82.5 [degF]Helder Jack MD Work Phone: 1(588)471-[facility]06-27-2024 10:00-0400 Body .83 Mackenzie Jack MD Work Phone: [facility]06-27-2024 10:00-0400 Diastolic blood zekqdgjt15 mm[Hg]Helder Jack MD Work Phone: [facility]06-27-2024 10:00-0400 Heart rate92 /Rachel Jack MD Work Phone: [facility]06-27-2024 10:00-0400 Respiratory rate17 /Rachel Jack MD Work Phone: [facility]06-27-2024 10:00-0400 SaO2% (BldA) [Mass fraction]96 %Helder Jack MD Work Phone: [facility]06-27-2024 10:00-0400 Systolic blood mm[Hg]Helder Jack MD Work Phone: [facility]06-26-2024 13:08-0400 Body uhuzrv731.7 cmRyan Milks PA-C Work Phone: [facility]06-26-2024 13:08-0400 Body mass index (BMI) [Ratio]26.91 kg/m2Ryan Milks PA-C Work Phone: 1(965)[address] [place], [place] 6872806-26-2024 13:08-0400 Body .29 kgRyan Milks PA-C Work Phone: 1(435)[address] [place], [place] 6872806-26-2024 13:08-0400 Diastolic blood wpvotlkt07 mm[Hg]Solomon Milks PA-C Work Phone: 8(591)[facility] [place], [place] 1532306-26-2024 13:08-0400 Heart rate91 /minRyan Milks PA-C Work Phone: 6(340)[facility] [place], [place] 1532306-26-2024 13:08-0400 Systolic blood pxjzyctm993 mm[Hg]Solomon Milks PA-C Work Phone: 1(166)[address] [place], [place] 6872806-17-2024 10:51-0400 Body npqquu364.72 cmDO Griselda Kuns Work Phone: [facility]06-17-2024 10:51-0400 Body mass index (BMI) [Ratio]26.1 kg/m2DO Griselda Kuns Work Phone: [facility]06-17-2024 10:51-0400 Body .01 kgDO Griselda Kuns Work Phone: [facility]06-17-2024 10:51-0400 Diastolic blood kklccooi04 mm[Hg]DO Griseldaaidan Eckerts Work Phone: [facility]06-17-2024 10:51-0400 Heart rate97 /Gerard Krause Work Phone: [facility]06-17-2024 10:51-0400 Respiratory rate18 /Gerard Krause Work Phone: [facility]06-17-2024 10:51-0400 SaO2% (BldA) [Mass fraction]96 %DO Griselda Krause Work Phone: [facility]06-17-2024 10:51-0400 Systolic blood mm[Hg]DO Griselda Krause Work Phone: [facility]05-17-2024 09:49-0400 Body grzigc927.6 Pushpa Cole MD Work Phone: [facility]05-17-2024 09:49-0400Body mass index (BMI) [Ratio]27.38 kg/q2XyhcdRacquel Cole MD Work Phone: [facility]05-17-2024 09:49-0400Body temperature 97.7 [degF]Racquel Cole MD Work Phone: [facility]05-17-2024 09:49-0400Body .7 kgRacquel Cole MD Work Phone: [facility]05-17-2024 09:49-0400Diastolic blood axodhgpg26 mm[Hg]Racquel Cole MD Work Phone: [facility]05-17-2024 09:49-0400Heart rate72 /min Racquel Cole MD Work Phone: [facility]05-17-2024 09:49-0400Respiratory rate 16 /minRacquel Cole MD Work Phone: [facility]05-17-2024 09:49-8015CxD3% (BldA) [Mass fraction]99 %Racquel Cole MD Work Phone: [facility]05-17-2024 09:49-0400Systolic blood vedxcprh958 mm[Hg]Racquel Cole MD Work Phone: [facility]05-13-2024 10:32-0400Body oxadlv589.72 cmDO Griselda Kuns Work Phone: [facility]05-13-2024 10:32-0400 Body mass index (BMI) [Ratio]26.6 kg/m2DO Griselda Kuns Work Phone: [facility]05-13-2024 10:32-0400 Body ieyuws32.37 kgDO Griselda Kuns Work Phone: [facility]05-13-2024 10:32-0400 Diastolic blood cnvvomgy95 mm[Hg]DO Griselda Kuns Work Phone: [facility]05-13-2024 10:32-0400 Heart rate71 /minDO Griselda Kuns Work Phone: [facility]05-13-2024 10:32-0400 Respiratory rate16 /minDO Griselda Kuns Work Phone: [facility]05-13-2024 10:32-0400 SaO2% (BldA) [Mass fraction]98 %DO Griselda Kuns Work Phone: [facility]05-13-2024 10:32-0400 Systolic blood mm[Hg]DO Griselda Kuns Work Phone: [facility]05-02-2024 09:02-0400 Diastolic blood qoaukjdj95 mm[Hg]DO Griselda Kuns Work Phone: [facility]05-02-2024 09:02-0400 Systolic blood ncpjvixx140 mm[Hg]DO Griselda Kuns Work Phone: [facility]05-02-2024 08:58-0400 Body hwnaab440.72 cmDO Griselda Krause Work Phone: [facility]05-02-2024 08:58-0400 Body mass index (BMI) [Ratio]26.6 kg/m2DO Griselda Andreas Work Phone: [facility]05-02-2024 08:58-0400 Body tbopdt47.37 kgDO Griselda Krause Work Phone: [facility]05-02-2024 08:58-0400 Heart rate57 /minDO Griselda Krause Work Phone: [facility]05-02-2024 08:58-0400 Respiratory rate18 /minDO Griselda Krause Work Phone: [facility]05-02-2024 08:58-0400 SaO2% (BldA) [Mass fraction]98 %DO Griselda Krause Work Phone: [facility]04-19-2024 09:37-0400 Body nujnnt493.2 cmHelder Jack MD Work Phone: [facility]04-19-2024 09:37-0400 Body mass index (BMI) [Ratio]26.25 kg/a5NfnjhurHelder Jack MD Work Phone: [facility]04-19-2024 09:37-0400 Body iejxsusllob48.3 [degF]Helder Jack MD Work Phone: [facility]04-19-2024 09:37-0400 Body txksys31.84 kgHelder Jack MD Work Phone: [facility]04-19-2024 09:37-0400 Diastolic blood zxdnydyu67 mm[Hg]Helder Jack MD Work Phone: [facility]04-19-2024 09:37-0400 Heart rate81 /minHelder Jack MD Work Phone: [facility]04-19-2024 09:37-0400 Respiratory rate16 /Rachel Jack MD Work Phone: [facility]04-19-2024 09:37-0400 SaO2% (BldA) [Mass fraction]99 %Helder Jack MD Work Phone: [facility]04-19-2024 09:37-0400 Systolic blood rjxrzqnu075 mm[Hg]Helder Jack MD Work Phone: [facility]03-20-2024 13:44-0400 Diastolic blood zlgaunrw95 mm[Hg]DO Griselda Kuns Work Phone: [facility]03-20-2024 13:44-0400 Systolic blood xbncodqw994 mm[Hg]DO Griselda Kuns Work Phone: [facility]03-20-2024 13:41-0400 Body ywmixe859.72 cmDO Griselda Kuns Work Phone: [facility]03-20-2024 13:41-0400 Body mass index (BMI) [Ratio]27.8 kg/m2DO Griselda Kuns Work Phone: [facility]03-20-2024 13:41-0400 Body qkalmb05 kgDO Griselda Kuns Work Phone: [facility]03-20-2024 13:41-0400 Heart rate66 /minDO Griselda Kuns Work Phone: [facility]03-20-2024 13:41-0400 Respiratory rate18 /minDO Griselda Kuns Work Phone: [facility]03-20-2024 13:41-0400 SaO2% (BldA) [Mass fraction]99 %DO Griselda Kuns Work Phone: [facility]03-20-2024 11:58-0400 Body iuxvvd441.72 cmDO Griselda Kuns Work Phone: [facility]03-20-2024 11:58-0400 Body mass index (BMI) [Ratio]27.3 kg/m2DO Griselda Kuns Work Phone: [facility]03-20-2024 11:58-0400 Body qacvynabgoi28.8 [degF]DO Griselda Kuns Work Phone: [facility]03-20-2024 11:58-0400 Body uxfttv19.64 kgDO Griselda Kuns Work Phone: [facility]03-20-2024 11:58-0400 Diastolic blood vbxcrcec39 mm[Hg]DO Griselda Kuns Work Phone: [facility]03-20-2024 11:58-0400 Heart rate71 /minDO Griselda Kuns Work Phone: [facility]03-20-2024 11:58-0400 SaO2% (BldA) [Mass fraction]96 %DO Griselda Kuns Work Phone: [facility]03-20-2024 11:58-0400 Systolic blood cbzooxoc298 mm[Hg]DO Griselda Kuns Work Phone: [facility]02-28-2024 15:41-0500 Body .72 cmDO Griselda Kuns Work Phone: [facility]02-28-2024 15:41-0500 Body mass index (BMI) [Ratio]28.1 kg/m2DO Griselda Kuns Work Phone: [facility]02-28-2024 15:41-0500 Body zfxerh59.08 kgDO Griselda Kuns Work Phone: [facility]02-28-2024 15:41-0500 Diastolic blood cymlxjol17 mm[Hg]DO Griselda Kuns Work Phone: [facility]02-28-2024 15:41-0500 Heart rate62 /minDO Griselda Kuns Work Phone: [facility]02-28-2024 15:41-0500 Respiratory rate18 /minDO Griselda Kuns Work Phone: [facility]02-28-2024 15:41-0500 SaO2% (BldA) [Mass fraction]99 %DO Griselda Kuns Work Phone: [facility]02-28-2024 15:41-0500 Systolic blood mm[Hg]DO Griselda Kuns Work Phone: [facility]02-15-2024 13:11-0500 Body imyole928.72 cmDO Griselda Kuns Work Phone: [facility]02-15-2024 13:11-0500 Body mass index (BMI) [Ratio]27.9 kg/m2DO Griselda Kuns Work Phone: [facility]02-15-2024 13:11-0500 Body spiqsi86.46 kgDO Griselda Kuns Work Phone: [facility]02-15-2024 13:11-0500 Diastolic blood bimwijtc16 mm[Hg]DO Griselda Kuns Work Phone: [facility]02-15-2024 13:11-0500 Heart rate68 /minDO Griselda Kuns Work Phone: [facility]02-15-2024 13:11-0500 Respiratory rate16 /minDO Griselda Kuns Work Phone: [facility]02-15-2024 13:11-0500 SaO2% (BldA) [Mass fraction]97 %DO Griselda Kuns Work Phone: [facility]02-15-2024 13:11-0500 Systolic blood jighbvck233 mm[Hg]DO Griselda Kuns Work Phone: [facility]01-15-2024 09:30-0500 Body fizhpp161.72 cmBrett Andreas Other [facility]01-15-2024 09:30-0500 Body mass index (BMI) [Ratio]28.28 kg/z2Eydbo Kuns Other [facility] Other 01-15-2024 09:30-0500Body ekxngt75.37 kgBrett Kuns Other [place] [employer] Other 01-15-2024 09:30-0500Body icgrtp00.36 kgDO Griselda Kuns Work Phone: [facility]01-15-2024 09:30-0500 Diastolic blood czofxnkv05 mm[Hg]Griselda Andreas Other [facility]01-15-2024 09:30-0500 Respiratory rate16 /minBrett Andreas Other [facility] [employer] Other 01-15-2024 09:30-7024XbS3% (BldA) [Mass fraction]97 % Griselda Andreas Other [place] [employer] Other 01-15-2024 09:30-0500Systolic blood aqxthjnz176 mm[Hg] Griselda Andreas Other [facility]12-14-2023 13:45-0500 Body kjamjn763.72 cmBrett Andreas Other [facility]12-14-2023 13:45-0500 Body mass index (BMI) [Ratio]27.37 kg/e6Mhesk Kuns Other [facility] [employer] Other [id number] 13:45-0500Body neduvk55.65 kgBreaidan Krause Other [facility] Other [id number] 13:45-0500Body mqrsot19.64 kgDO Griselda Krause Work Phone: [facility]12-14-2023 13:45-0500 Diastolic blood wraljgli40 mm[Hg]Griseldaaidan Krause Other [facility]12-14-2023 13:45-0500 Respiratory rate18 /minGriselda Krause Other [place] [employer] Other [id number] 13:45-6393GeV9% (BldA) [Mass fraction]98 % Griselda Krause Other [place] [employer] Other [id number] 13:45-0500Systolic blood olwmyyln219 mm[Hg] Griselda Krause Other [facility]12-13-2023 11:15-0500 Body nhupzv265.72 cmMamargie Harvey Other [facility]12-13-2023 11:15-0500 Body mass index (BMI) [Ratio]27.52 kg/i3OsldxtsRuddy Harvey Other [place] [employer] Other 12-13-2023 11:15-0500Body efflnurluzr74.8 [degF] Ruddy Harvey Other [place] [employer] Other 12-13-2023 11:15-0500Body acbzgp39.1 kgMamargie Harvey Other [facility]12-13-2023 11:15-0500 SaO2% (BldA) [Mass fraction]98 %Ruddy Harvey Other [facility] [employer] Other 11-28-2023 13:20-0500Body .72 cmLinda Kamla Other [facility]11-28-2023 13:20-0500 Body mass index (BMI) [Ratio]27.52 kg/h4Jlavz Kamla Other [place] [employer] Other 11-28-2023 13:20-0500Body equyrq79.1 kgLinda Kamla Other [facility]11-28-2023 13:20-0500 Diastolic blood mtsycvpi13 mm[Hg]Lilliam Kamla Other [facility]11-28-2023 13:20-0500 Respiratory rate18 /minLinda Kamla Other [place] [employer] Other [id number] 13:20-8756XtF6% (BldA) [Mass fraction]98 % Lilliam Kamla Other [place] [employer] Other 11-28-2023 13:20-0500Systolic blood fysnkbme257 mm[Hg] Lilliam Kamla Other [facility]11-20-2023 13:16-0500 Diastolic blood vvkqbnoz35 mm[Hg]DO Griselda Kuns Work Phone: [facility]11-20-2023 13:16-0500 Heart rate75 /minDO Griselda Kuns Work Phone: [facility]11-20-2023 13:16-0500 Respiratory rate16 /minDO Griselda Kuns Work Phone: [facility]11-20-2023 13:16-0500 SaO2% (BldA) [Mass fraction]96 %DO [employer] Work Phone: [facility]11-20-2023 13:16-0500 Systolic blood ddhuocaz210 mm[Hg]DO [employer] Work Phone: [facility]11-20-2023 10:30-0500 Inhaled oxygen flow rate3 L/minDO Griselda [employer] Work Phone: [facility]11-20-2023 08:29-0500 Body jlwmil137.72 cmDO [employer] Work Phone: [facility]11-20-2023 08:29-0500 Body fqzbab89.37 kgDO [employer] Work Phone: [facility]11-16-2023 09:15-0500 Body kepzzs209.72 cmRuddy Harvey Other [place] [employer] Other 11-16-2023 09:15-0500Body mass index (BMI) [Ratio] 27.06 kg/b9GvtakpkRuddy Harvey Other [facility] [employer] Other 11-16-2023 09:15-0500Body fwpnhzxazns68.8 [degF] Ruddy Harvey Other [place] [employer] Other 11-16-2023 09:15-0500Body .74 kgMamargie Harvey [facility] Other 11-16-2023 09:15-0500Diastolic blood equctwgi05 mm[Hg] [facility] Other 11-16-2023 09:15-9216PaC7% (BldA) [Mass fraction]97 % Ruddy Harvey Other [facility] Other 11-16-2023 09:15-0500Systolic blood jqskexny099 mm[Hg] Ruddy Langdoris Other [facility] Other 11-14-2023 10:30-0500Body .72 cmBreaidan Krause Other [facility] Other 11-14-2023 10:30-0500Body mass index (BMI) [Ratio] 27.06 kg/q0Jlgal Kuns Other [facility] Other 11-14-2023 10:30-0500Body qepnhc53.74 kgBreaidan Krause Other [facility] Other 11-14-2023 10:30-0500Diastolic blood qnihithh04 mm[Hg] Griseldaaidan Krause Other [facility] Other 11-14-2023 10:30-0500Respiratory rate18 /minBreaidan Krause Other [facility] Other 11-14-2023 10:30-0481AuR0% (BldA) [Mass fraction]96 % Griseldaaidan Eckerts Other [facility] Other 11-14-2023 10:30-0500Systolic blood sdqbzxdu600 mm[Hg] Griselda Andreas Other [facility] Other 10-25-2023 10:40-0400Body qmxlky665.72 cmLinda Kamla Other [employer] Other 10-25-2023 10:40-0400Body mass index (BMI) [Ratio] 26.67 kg/s2Ygczb Kamla Other [facility] [employer] Other 10-25-2023 10:40-0400Body lliqre40.56 kgLinshanelle Kamla Other [facility] [employer] Other 10-25-2023 10:40-0400Diastolic blood fvjuesjd11 mm[Hg] Lilliam Grecooroge Other [facility] [employer] Other 10-25-2023 10:40-1981XpA1% (BldA) [Mass fraction]96 % Lilliam Grecooroge Other [facility] [employer] Other 10-25-2023 10:40-0400Systolic blood bzunymwh619 mm[Hg] Lilliam Kamla Other [place] [employer] Other 10-04-2023 02:42-0400Diastolic blood ehxyasbi05 mm[Hg] DO Griselda [employer] Work Phone: [facility]10-04-2023 02:42-0400 Heart rate72 /minDO Griselda Kuns Work Phone: [facility]10-04-2023 02:42-0400 Respiratory rate16 /minDO Griselda Kuns Work Phone: [facility]10-04-2023 02:42-0400 SaO2% (BldA) [Mass fraction]97 %DO Griselda Kuns Work Phone: [facility]10-04-2023 02:42-0400 Systolic blood rmlcdahi093 mm[Hg]DO Griselda Kuns Work Phone: [facility]10-04-2023 00:12-0400 Body jbowkv115.72 cmDO Griselda Krause Work Phone: [facility]10-04-2023 00:12-0400 Body khjlninvyjq77 [degF]DO Griselda Krause Work Phone: [facility]10-04-2023 00:12-0400 Body umzcck67.37 kgDO Griselda Krause Work Phone: [facility]09-28-2023 10:30-0400 Body wizpbp921.72 cmBreaidan Krause Other [facility] Other 09-28-2023 10:30-0400Body mass index (BMI) [Ratio] 26.76 kg/h4DgmbeGriselda Krause Other [facility] Other 09-28-2023 10:30-0400Body fgiogb23.83 kgBreaidan Krause Other [facility] Other 09-28-2023 10:30-0400Diastolic blood uylbivun71 mm[Hg] Griselda Eckertroge Other [facility] Other 09-28-2023 10:30-0400Respiratory rate16 /minBreaidan Andrearoge Other [facility] Other 09-28-2023 10:30-5284PtP4% (BldA) [Mass fraction]97 % Griseldaaidan Krause Other [facility] Other 09-28-2023 10:30-0400Systolic blood akbypyuz081 mm[Hg] Griseldaaidan Krause Other [facility] Other 09-21-2023 10:00-0400Body .72 cmBreaidan Eckerts Other [employer] Other 09-21-2023 10:00-0400Body mass index (BMI) [Ratio] 27.18 kg/w2Epppr Kuns Other [place] [employer] Other 09-21-2023 10:00-0400Body mholuz85.1 kgBreaidan Krause Other [place] [employer] Other 09-21-2023 10:00-0400Diastolic blood lktuzmsy39 mm[Hg] Griselda Andreas Other [facility] [employer] Other 09-21-2023 10:00-0400Respiratory rate16 /minBreaidan Krause Other [place] [employer] Other 09-21-2023 10:00-2912JqE5% (BldA) [Mass fraction]96 % Griseldaaidan Eckerts Other [place] [employer] Other 09-21-2023 10:00-0400Systolic blood xdtdtakp511 mm[Hg] Griselda Andreas Other [facility] [employer] Other 09-11-2023 14:13-0400Body egqkfz312.72 cmDO Griselda Kuns Work Phone: [facility]09-11-2023 14:13-0400 Body vjcmliwgznb35 [degF]DO Griselda Kuns Work Phone: [facility]09-11-2023 14:13-0400 Body vfpxlo30.6 kgDO Griselda Kuns Work Phone: [facility]09-11-2023 14:13-0400 Diastolic blood biutveeb99 mm[Hg]DO Griselda Mercateos Work Phone: [facility]09-11-2023 14:13-0400 Heart rate56 /minDO Griselda Eckerts Work Phone: [facility]09-11-2023 14:13-0400 Respiratory rate18 /minDO Griselda Eckerts Work Phone: [facility]09-11-2023 14:13-0400 SaO2% (BldA) [Mass fraction]96 %DO Griselda [employer] Work Phone: [facility]09-11-2023 14:13-0400 Systolic blood gdbpkzhu170 mm[Hg]DO Griselda [employer] Work Phone: [facility]06-20-2023 10:15-0400 Body ralfxb537.72 cmGriselda Krause Other [facility] Other 06-20-2023 10:15-0400Body mass index (BMI) [Ratio] 25.85 kg/o7CkwfrGriselda Krause Other [facility] Other 06-20-2023 10:15-0400Body iaievb75.11 kgGriselda Krause Other [facility] Other 06-20-2023 10:15-0400Diastolic blood bzxppaca15 mm[Hg] Griselda [employer] Other [facility] Other 06-20-2023 10:15-0400Respiratory rate16 /minGriselda Krause Other [facility] Other 06-20-2023 10:15-1642QwH1% (BldA) [Mass fraction]96 % Griselda Kuns Other [employer] Other 06-20-2023 10:15-0400Systolic blood zgieqxgn654 mm[Hg] Griselda Eckertroge Other [employer] Other 03-29-2023 10:57-0400Body wrocev686.6 cmSgilsonjenna Billyubek PA-C Work Phone: [facility]03-29-2023 10:57-0400Body temperature 97.39 [degF]Kelly Billyubek PA-C Work Phone: [place] [address]-29-2023 10:57-0400Body aypjzx44.34 kgSujenna Billyubek PA-C Work Phone: [facility]03-29-2023 10:57-0400Diastolic blood zbyqgtek41 mm[Hg]Kelly Billyxuank PA-C Work Phone: [place] [address]-29-2023 10:57-0400Heart rate70 /min Kelly Jakubek PA-C Work Phone: [facility]03-29-2023 10:57-0400Respiratory rate 18 /minSgilsonjenna Jakubek PA-C Work Phone: [facility]03-29-2023 10:57-0483QtM8% (BldA) [Mass fraction]100 %Kelly Billyxuank PA-C Work Phone: [place] [address]-29-2023 10:57-0400Systolic blood pnspyvnq004 mm[Hg]Kelly Billyxuank PA-C Work Phone: [facility]03-16-2023 11:15-0400Body bocobc649.72 cmKatyaidan Eckertroge Other [employer] Other 03-16-2023 11:15-0400Body mass index (BMI) [Ratio] 26.79 kg/r6Iaphe Kuns Other [facility] Other 03-16-2023 11:15-0400Body ddruis06.92 kgBrett Kuns Other [facility] Other 03-16-2023 11:15-0400Diastolic blood brezjcfe62 mm[Hg] Griselda Kuns Other [facility] Other 03-16-2023 11:15-0400Respiratory rate16 /minBrett Andreas Other [facility] Other 03-16-2023 11:15-8128ImD3% (BldA) [Mass fraction]98 % Griselda Andreas Other [facility] Other 03-16-2023 11:15-0400Systolic blood zovvuztz959 mm[Hg] Griselda Kuns Other [facility] Other 02-14-2023 10:30-0500Body ujkjrz652.72 cmBrett Kuns Other [facility] Other 02-14-2023 10:30-0500Body mass index (BMI) [Ratio] 27.27 kg/y6Zneyx Kuns Other [facility] Other 02-14-2023 10:30-0500Body lylxko49.38 kgBrett Kuns Other [facility] Other 02-14-2023 10:30-0500Diastolic blood cjwhrsno49 mm[Hg] Griselda Kuns Other [facility] [employer] Other 02-14-2023 10:30-0500Respiratory rate16 /minBrett Kuns Other [place] [employer] Other 02-14-2023 10:30-1458RgM4% (BldA) [Mass fraction]99 % Griselda Kuns Other [place] [employer] Other 02-14-2023 10:30-0500Systolic blood lsalirdq883 mm[Hg] Griselda Kuns Other [place] [employer] Other 01-30-2023 09:45-0500Diastolic blood gybiyhbn35 mm[Hg] DO Griselda Kuns Work Phone: [facility]01-30-2023 09:45-0500 Heart rate69 /minDO Griselda Kuns Work Phone: [facility]01-30-2023 09:45-0500 Respiratory rate16 /minDO Griselda Kuns Work Phone: [facility]01-30-2023 09:45-0500 SaO2% (BldA) [Mass fraction]99 %DO Griselda Kuns Work Phone: [facility]01-30-2023 09:45-0500 Systolic blood wfuuuuds950 mm[Hg]DO Griselda Kuns Work Phone: [facility]01-30-2023 07:58-0500 Body jiblua418.72 cmDO Griselda Kuns Work Phone: [facility]01-30-2023 07:58-0500 Body ihxhap71.37 kgDO Griselda Kuns Work Phone: [facility]01-11-2023 10:20-0500 Body eohjkz114.72 cmDeborah Blades Other [facility] Other 01-11-2023 10:20-0500Body mass index (BMI) [Ratio] 26.67 kg/r8Psahyov Blades Other [facility] Other 01-11-2023 10:20-0500Body letucm63.56 kgDeborah Blades Other [facility] Other 01-11-2023 10:20-0500Diastolic blood qhattuae25 mm[Hg] Trish Blades Other [facility] Other 01-11-2023 10:20-0500Systolic blood ovxsqtui702 mm[Hg] Trish Blades Other [facility] Other 12-09-2022 13:30-0500Body cjbiux857.72 cmBrett Kuns Other [facility] Other 12-09-2022 13:30-0500Body mass index (BMI) [Ratio]26.7 kg/s4Rinqs Kuns Other [facility] Other 12-09-2022 13:30-0500Body yyzrzi04.65 kgBrett Kuns Other [facility] Other 12-09-2022 13:30-0500Diastolic blood dtpikyta84 mm[Hg] Griselda Kuns Other [facility] Other 12-09-2022 13:30-0500Respiratory rate18 /minBrett Kuns Other [facility] Other 12-09-2022 13:30-9990LcN9% (BldA) [Mass fraction]98 % Griselda Kuns Other [facility] [employer] Other 12-09-2022 13:30-0500Systolic blood lbirdzkc806 mm[Hg] Griselda Kuns Other [place] [employer] Other [id number] 00:30-0400Diastolic blood womrctvh94 mm[Hg] DO Griselda Kuns Work Phone: [facility]10-31-2022 00:30-0400 Heart rate78 /minDO Griselda Kuns Work Phone: [facility]10-31-2022 00:30-0400 Respiratory rate16 /minDO Griselda Kuns Work Phone: [facility]10-31-2022 00:30-0400 SaO2% (BldA) [Mass fraction]97 %DO Griselda Kuns Work Phone: [facility]10-31-2022 00:30-0400 Systolic blood kvsbupet765 mm[Hg]DO Griselda Kuns Work Phone: [facility]10-30-2022 19:45-0400 Body slazdv503.72 cmDO Griselda Kuns Work Phone: [facility]10-30-2022 19:45-0400 Body hinnuseafqn33.1 [degF]DO Griselda Kuns Work Phone: [facility]10-30-2022 19:45-0400 Body mlqocj81 kgDO Griselda Kuns Work Phone: [facility]10-20-2022 16:31-0400 Body scveag079.72 cmDO Griselda Kuns Work Phone: [facility]10-20-2022 16:31-0400 Body ofubchfndgt21.1 [degF]DO Griselda Andreas Work Phone: [facility]10-20-2022 16:31-0400 Body yheozj04.37 kgDO Griselda Kuns Work Phone: [facility]10-20-2022 16:31-0400 Diastolic blood mm[Hg]DO Griselda Kuns Work Phone: [facility]10-20-2022 16:31-0400 Heart rate95 /minDO Griselda Andreas Work Phone: [facility]10-20-2022 16:31-0400 Respiratory rate19 /minDO Griselda Kuns Work Phone: [facility]10-20-2022 16:31-0400 SaO2% (BldA) [Mass fraction]97 %DO Griselda Kuns Work Phone: [facility]10-20-2022 16:31-0400 Systolic blood quirpvsg458 mm[Hg]DO Griselda Andreas Work Phone: [facility]09-29-2022 13:30-0400 Body pmcoyd612.72 cmGriselda Krause Other [employer] Other 09-29-2022 13:30-0400Body mass index (BMI) [Ratio] 26.91 kg/c8UfiuzGriselda Eckertroge Other [employer] Other 09-29-2022 13:30-0400Body wyfolq71.29 kgBreaidan Darling Other [facility] Other 09-29-2022 13:30-0400Diastolic blood fsugmmsq90 mm[Hg] Griselda Andrearoge Other [facility] [employer] Other 09-29-2022 13:30-0400Respiratory rate16 /minBrett Kuns Other [facility] Other 09-29-2022 13:30-8674XwG0% (BldA) [Mass fraction]97 % Griselda Andreas Other [facility] Other 09-29-2022 13:30-0400Systolic blood urirvcpd377 mm[Hg] Griselda Kuns Other [facility] Other 08-15-2022 12:00-0400Body rtilfo436.72 cmBrett Darling Other [facility] Other 08-15-2022 12:00-0400Body mass index (BMI) [Ratio]26.3 kg/x2Xpsyx Andreas Other [facility] Other 08-15-2022 12:00-0400Body bipnss51.47 kgBrett Andreas Other [facility] Other 08-15-2022 12:00-0400Diastolic blood zixkpyge35 mm[Hg] Griselda Kuns Other [facility] Other 08-15-2022 12:00-0400Respiratory rate16 /minBrett Kuns Other [facility] Other 08-15-2022 12:00-6711HoL2% (BldA) [Mass fraction]99 % Griselda Kuns Other [facility] Other 08-15-2022 12:00-0400Systolic blood sgjeyjpm645 mm[Hg] Griselda Kuns Other [facility] Other 07-11-2022 11:00-0400Body ieelyv031.72 cmBrett Kuns Other [facility] Other 07-11-2022 11:00-0400Body mass index (BMI) [Ratio] 26.61 kg/f6Ttuag Kuns Other [facility] Other 07-11-2022 11:00-0400Body yvojko61.38 kgBrett Kuns Other [facility] Other 07-11-2022 11:00-0400Diastolic blood wxkotkxs80 mm[Hg] Griselda Kuns Other [facility] Other 07-11-2022 11:00-0400Respiratory rate16 /minBrett Kuns Other [facility] Other 07-11-2022 11:00-8783UzL9% (BldA) [Mass fraction]96 % Griselda Kuns Other [facility] Other 07-11-2022 11:00-0400Systolic blood sebklvha511 mm[Hg] Griselda Kuns Other [facility] Other 06-20-2022 10:15-0400Body .72 cmBrett Kuns Other [facility] Other 06-20-2022 10:15-0400Body mass index (BMI) [Ratio] 269.71 kg/u5Nhfpn Kuns Other [facility] Other 06-20-2022 10:15-0400Body nctgao230.69 kgBrett Kuns Other [facility] Other 06-20-2022 10:15-0400Diastolic blood mm[Hg] Griselda Kuns Other [facility] Other 06-20-2022 10:15-0400Respiratory rate18 /minBrett Kuns Other [facility] Other 06-20-2022 10:15-4076EwM4% (BldA) [Mass fraction]99 % Griselda Kuns Other [facility] Other 06-20-2022 10:15-0400Systolic blood stprlzda411 mm[Hg] Griselda Kuns Other [facility] Other 05-24-2022 11:15-0400Body .72 cmBrett Andreas Other [facility] Other 05-24-2022 11:15-0400Body mass index (BMI) [Ratio] 27.06 kg/j7Jhtdv Andreas Other [facility] Other 05-24-2022 11:15-0400Body mbwayy27.74 kgBrett Kuns Other [facility] Other 05-24-2022 11:15-0400Diastolic blood pyvpnumt08 mm[Hg] Griselda Kuns Other [facility] Other 05-24-2022 11:15-0400Respiratory rate16 /minGriselda Krause [facility] Other 05-24-2022 11:15-1747NyN4% (BldA) [Mass fraction]97 % Griselda Krause Other [facility] [employer] Other 05-24-2022 11:15-0400Systolic blood aoqvckya634 mm[Hg] Griselda Krause [facility] Other 05-19-2022 09:38-0400Body maliis600.51 cmGriselda Driver Darling Work Phone: 1(967) [phone]-EuqarkuUniversity of [facility] Health Work Phone: 1(638) 104-784705-19-2022 09:38-0400Body mass index (BMI) [Ratio] 27.05 kg/n8Vsycu R Darling Work Phone: 1(153) [phone]-AiwwgaoUniversity of [facility] Health Work Phone: [phone] 09:38-0400Body surface area Derived from formula1.91 e0Fpfjl Neisha Krause Work Phone: 1(271) [phone]-HugmorpUniversity of [facility] Health Work Phone: [phone] 09:38-0400Body cpeafjmojgb50.2 [degF]Griselda Krause Work Phone: 1(642) [phone]-HwzjtcsUniversity of [facility] Health Work Phone: [phone] 09:38-0400Body phcyky23.65 kgGriselda Driver Darling Work Phone: 1(983) [phone]-HrabofnUniversity of [facility] Health Work Phone: [phone] 09:38-0400Diastolic blood nzkwjhda35 mm[Hg] Griselda Krause Work Phone: 1(489) [phone]-SkgcoubUniversity of [facility] Health Work Phone: 1(157) 890-462305-19-2022 09:38-0400Heart rate63 /minGriselda R Darling Work Phone: 1(555) [phone]-VxmrlarUniversity of [place] Health Work Phone: 1(123)[phone] 09:38-0400Respiratory rate16 /minBrett R Andreas Work Phone: 1(110) [phone]-UtawrfcUniversity of [place] Health Work Phone: 1(887)[phone] 09:38-0041LrR5% (BldA) [Mass fraction]99 % Griseldaaidan Krause Work Phone: 1(993) [phone]-WalcxbrUniversity of [place] Health Work Phone: 1(585)[phone] 09:38-0400Systolic blood wemszfdm561 mm[Hg] Griselda Krause Work Phone: 1(856) [phone]-QmeooarUniversity of [place] Health Work Phone: 1(019)[phone] 09:38-44360 1Brett Neisha Krause Work Phone: 1(537) [phone]-QrimufyUniversity of [place] Health Work Phone: comment on above:EaqaGaxmh59-14-7761 13:30-0400Body qvtnuz610.72 cmGriselda Krause Other [facility] Other 05-17-2022 13:30-0400Body mass index (BMI) [Ratio] 26.61 kg/n3WafidGriselda Krause Other [facility] Other 05-17-2022 13:30-0400Body .38 kgGriselda Krause Other [facility] Other 05-17-2022 13:30-0400Diastolic blood hcwefupr65 mm[Hg] Griselda Krause Other [facility] Other 05-17-2022 13:30-0400Respiratory rate18 /minBreaidan Krause Other [facility] Other 05-17-2022 13:30-5432XeV3% (BldA) [Mass fraction]99 % Griselda Krause Other [facility] Other 05-17-2022 13:30-0400Systolic blood ebwesmuv028 mm[Hg] Griselda Krause Other [facility] Other 05-09-2022 09:45-0400Body wgqykl593.72 cmDanisurekha Schneider Other [facility] Other 05-09-2022 09:45-0400Body mass index (BMI) [Ratio] 26.76 kg/l2Vpnwmidionicio Schneider Other [facility] Other 05-09-2022 09:45-0400Body ylbyiq51.83 kgDadionicio Schneider Other [facility] Other 04-28-2022 09:50-0400Body cmVivenori Cole MD Work Phone: [facility]04-28-2022 09:50-0400Body temperature 97.5 [degF]Racquel Cole MD Work Phone: [facility]04-28-2022 09:50-0400Body xeifer07.28 kgRacquel Cole MD Work Phone: [facility]04-28-2022 09:50-0400Diastolic blood rrxmvzvy83 mm[Hg]Racquel Cole MD Work Phone: [facility]04-28-2022 09:50-0400Heart rate70 /min Racquel Cole MD Work Phone: [facility]04-28-2022 09:50-0400Respiratory rate 16 /minRacquel Cole MD Work Phone: [facility]04-28-2022 09:50-9464RmD1% (BldA) [Mass fraction]99 %Racquel Cole MD Work Phone: [facility]04-28-2022 09:50-0400Systolic blood tqthueas713 mm[Hg]Racquel Cole MD Work Phone: [facility]04-04-2022 10:45-0400Body .72 cmGriselda Krause Other [facility] Other 04-04-2022 10:45-0400Body mass index (BMI) [Ratio] 26.15 kg/t7XftboGriselda Krause Other [facility] Other 04-04-2022 10:45-0400Body gajxwe31.02 kgGriselda Krause Other [facility] Other 04-04-2022 10:45-0400Diastolic blood mm[Hg] Griselda Krause Other [facility] Other 04-04-2022 10:45-0400Respiratory rate18 /minGrisedla Krause Other [facility] Other 04-04-2022 10:45-3596XpS0% (BldA) [Mass fraction]99 % Griselda Krause Other [facility] Other 04-04-2022 10:45-0400Systolic blood urljnkbk994 mm[Hg] Griselda Krause Other [employer] [employer] Other 01-13-2022 13:30-0500Body ihqtjx732.72 cmBrett Kuns Other [facility] [employer] Other 10-28-2021 08:45-0400Body dtlwfe492.72 cmBrett Kuns Other [facility] [employer] Other 10-28-2021 08:45-0400Body mass index (BMI) [Ratio] 25.85 kg/j1Hjnpz Kuns Other [facility] [employer] Other 10-28-2021 08:45-0400Body .11 kgBrett Kuns Other [place] [employer] Other 10-28-2021 08:45-0400Diastolic blood ularovdz44 mm[Hg] Griselda Kuns Other [facility] [employer] Other 10-28-2021 08:45-0400Respiratory rate16 /minBrett Kuns Other [facility] [employer] Other 10-28-2021 08:45-5138KvV1% (BldA) [Mass fraction]99 % Griselda Kuns Other [facility] [employer] Other 10-28-2021 08:45-0400Systolic blood sfqfakre846 mm[Hg] Griselda Kuns Other [employer] Other Encounters Encounter DateEncounter TypeCare ProviderFacilityStart: 04-27-2025 End: 17-23-8984kusaupdpvnQzavi Kuns DO Work Phone: [phone]-Fmuumhtzq Health CardiologyStart: 04-27-2025 End: 24-00-6874Qputhyw encounter procedureiLlliam Cason MD-[facility] Work Phone: Start: 04-07-2025 End: 88-20-1089Qqburysrx Result EncounterOziel Cadena MD Work Phone: [facility] External Department UnsolicitedStart: 04-07-2025 End: 90-88-8105Rhspnrfvh Result EncounterOziel Cadena MD Work Phone: [facility] External Department UnsolicitedStart: 04-03-2025 Non-patient / Non-visitGriselda Krause DO-[facility] Work Phone: Start: 04-01-2025 End: 25-60-6476hdoeudyynwZoxew Kuns DO Work Phone: [facility] Work Phone: Start: 04-01-2025 End: 58-04-6541Neyapig encounter procedureGriselda Krause DO-[facility] Work Phone: Start: 03-30-2025 End: 66-86-0915fqjqtgzbxwXycfykb Vytautas Giedraitis MDFacility:[facility] Start: 03-24-2025 End: 77-03-8967hjfkpumiqyRCTNUODA [facility] Hospitaltart: 03-18-2025 End: 51-71-7273Zcajve flowsMarshal Cadena MD Work Phone: noms NEUROLOGYStart: 03-18-2025 End: 29-89-6863Qphlbw Preet Cadena MD Work Phone: noms BM NEUROLOGYStart: 03-18-2025 End: 04-45-4652wwllncynuwGCYYVEB W BAUERNot AvailableComment on above:Other nerve root and plexus disorders (Primary Dx); Acute pain of left shoulder; Acute pain of right shoulderStart: 02-26-2025 End: 86-83-7765Xkipwtv encounter procedureGriselda Krause DO-Ultrasound [place] Work Phone: Start: 02-26-2025 End: 19-20-5119wtgconrlhnSmnqv Kuns DO Work Phone: [facility] Work Phone: Start: 85-25-4208Dgxlutd encounter procedureGriselda Krause DO Work Phone: [facility]: 02-19-2025 End: 87-23-8721jtokscmfgtJlocp Kuns DO Work Phone: [facility] Work Phone: Start: 02-19-2025 End: 13-60-3119Glhqkzx encounter procedureGriselda Krause DO-[facility] [place] Work Phone: Start: 01-25-2175Gfw-patient / Non-visitMelissa Juliet Arias DO-[facility] Work Phone: Start: 02-13-2025 End: 04-42-9193cukbedapmuRIPDQDDKUniversity Hospitals Portage Medical Centertart: 02-09-2025 End: 84-41-1463firtjmobiqAgixqau Vytautas Giedraitis MDFacility:[facility] [place] Start: 02-04-2025 End: 33-12-9632Pgxkgrom SupportOziel Cadena MD Work Phone: noBell[facility] Hospital NeurologyComment on above:Acute pain of right shoulder (Primary Dx); Nerve root and plexus disorder, unspecified; Acute pain of left shoulderStart: 02-04-2025 End: 90-79-3369Dhrujq flowsMarshal Cadena MD Work Phone: noms NEUROLOGYStart: 02-04-2025 End: 22-16-6045Actfxw flowsMarshal Cadena MD Work Phone: NOMS BM NEUROLOGYStart: 65-80-6466Sbg-patient / Non-visitAndrius Roxy NORRIS-[facility] Work Phone: Start: 01-26-2025 End: 00-29-3792eejabaifthAohgykj Erickaytsharla Ramsey MDFacility:[facility] [place] Start: 01-12-2025 End: 15-52-8772hrughobqhwHqxrc Darling DO Work Phone: [facility] Work Phone: Start: 01-12-2025 End: 56-33-3306Xpsgdez encounter procedurewen Mullins APRSaint John'S Regional Health [facility] Work Phone: Start: 01-08-2025 End: 00-52-3721Jucpbn [facility] PA Work Phone: noms SWS DERMStart: 01-08-2025 End: 73-53-7037Krftse [facility] PA Work Phone: noms SWS DERMStart: 01-08-2025 End: 24-39-9597Vthbbi outpatient visit 15 [facility] Work Phone: noms SWS DERMComment on above:Melanocytic nevus of trunk (Primary Dx); Seborrheic keratosis; Inflamed seborrheic keratosis; Actinic keratosis; Capillary angioma; History of SCC (squamous cell carcinoma) of skinStart: 01-08-2025 End: 32-65-6718zszpeqvscmXBBWZ NORTHEIMNot AvailableStart: 12-29-2024 End: 13-79-6721rbllkoolgwCPNCGUF ZHOUNot AvailableStart: 12-24-2024 End: 91-66-2145Vxoywm Preet Cadena MD Work Phone: noms BM NEUROLOGYStart: 12-24-2024 End: 07-60-1672Zidejg Preet Cadena MD Work Phone: noms BM NEUROLOGYStart: 12-24-2024 End: 34-15-4022Sggauhax SupportOziel Cadena MD Work Phone: NOBellwood [facility] Hospital NeurologyComment on above:Nerve root and plexus disorder, unspecified (Primary Dx); Acute pain of left shoulderStart: 2024 End: 48-77-5978Ztfpads encounter procedureBrett Kuns DO Work Phone: [facility] CtrStart: 2024 End: 32-14-6808sslauafnunXlvsc Kuns DO Work Phone: [facility] Work Phone: Start: 11-19-2024 End: 01-71-2016ylrezcbgucYgpvu Kuns DO Work Phone: [facility] Work Phone: Start: 11-19-2024 End: 16-56-2223Xssdyid encounter procedureBrett Kuns DO Work Phone: [facility] Work Phone: Start: 11-17-2024 End: 21-70-3163wbcwwbcmjpQwczk Kuns DO Work Phone: [facility] Work Phone: Start: 11-17-2024 End: 51-14-3330Oqpmaju encounter procedureBrett Kuns DO Work Phone: [facility] Work Phone: Start: 11-12-2024 End: 17-06-5231Ufrgbm flowsMarshal Cadena MD Work Phone: noms BM NEUROLOGYStart: 11-12-2024 End: 02-78-4403Scarcv Preet Cadena MD Work Phone: noms NEUROLOGYStart: 11-12-2024 End: 31-52-8459Lqvhwopc SupportOziel Cadena MD Work Phone: NOMS SWS NEURComment on above:Nerve root and plexus disorder, unspecified (Primary Dx); Acute pain of left shoulderStart: 11-07-2024 End: 44-78-4376lmqpfohisuOHITM ABHYANKARFacility:[facility] Hospitaltart: 55-92-6318Atz-patient / Non-visitBrett Kuns DO Work Phone: [facility] Gastro Work Phone: Start: 11-05-2024 End: 28-61-6465Mpxplxmub to same day surgery centerBreaidan Krause DO Work Phone: [facility]-Digestive Health Work Phone: Start: 11-05-2024 End: 92-96-2103fkovsxfdrzWuot AsaadFacility:[facility] Start: 11-03-2024 End: 71-93-2994Eeruqqptc encounterRacquel Cole MD Work Phone: Hematology/OncologyComment on above:OrdersStart: 83-01-7374Den-patient / Non-visitBrett Kuns DO Work Phone: [facility] GroupAstria [facility] Work Phone: Start: 23-18-2098fefwporptpONKIZ HYFERNIE Facility:[facility] Hospitaltart: 11-03-2024 End: 38-32-3412Umgztutktg hospital visit by physicianArrival Time Radiology Work Phone: Radiology Pet CTComment on above: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]Start: 10-27-2024 End: 87-09-2447xdscyumgpaApxvs Kuns DO Work Phone: [facility] Work Phone: Start: 10-27-2024 End: 65-97-9303Aiigrta encounter procedureBreaidan Krause DO Work Phone: [facility] Card[facility] Work Phone: Start: 10-21-2024 End: 32-45-4240Qkekprrfpq hospital visit by physicianRad External FilmEF RAD EXTERNAL FILM VIRTUALComment on above:ArrivedStart: 10-21-2024 End: 48-06-6492kaentutpylUCIHZFWPaulding County Hospitaltart: 10-13-2024 End: 52-24-2998Mqmeux outpatient visit 40 minutesXilara Harris MD Work Phone: [facility] CenterComment on above:Status post cervical spinal fusion (Primary Dx)Start: 10-13-2024 End: 26-84-6832ynmnreqfsqYSAUMDPSaint Luke's Health System AmbulatoryStart: 10-10-2024 End: 89-71-1683iwqqfgtxvoBztmj Kuns DO Work Phone: [facility] Work Phone: Start: 10-10-2024 End: 72-01-9018Wepbuah encounter procedureBreaidan Eckerts DO Work Phone: [facility] Work Phone: Start: 10-10-2024 End: 23-96-0028Kramoyx encounter procedureBreaidan Eckerts DO Work Phone: [facility]-XRay [place] Work Phone: Start: 10-10-2024 End: 86-18-0711dcprrqrfhdJsqjm Kuns DO Work Phone: [facility] Work Phone: Start: 10-07-2024 End: 04-27-2266Vsyhmdf encounter procedureBrett Kuns DO Work Phone: [facility]-Lab [place] Work Phone: Start: 10-07-2024 End: 77-87-2837hglqzjdvbiNaikz Kuns DO Work Phone: [facility] Work Phone: Start: 10-06-2024 End: 34-54-0848Lvoanjhkx department patient visitGriselda Krause DO Work Phone: [facility]-Emergency Room Work Phone: Start: 09-22-2024 End: 27-32-6803rrisbntomwJawptzy Vytautas Giedraitis MDFacility:PM [place] Start: 09-20-2024 End: 13-59-2423Jclelnxab department patient visitGriselda Krause DO Work Phone: [facility]-Emergency [facility] Work Phone: Start: 09-15-2024 End: 26-07-9817djcscchhfdVvvhlgd Vytautas Giedraitis MDFacility:PM [place] Start: 09-11-2024 End: 80-50-7122Zorzke flowsMarshal Cadena MD Work Phone: noms NEUROLOGYStart: 09-11-2024 End: 76-51-6006Gklzhu flowsMarshal Cadena MD Work Phone: noms NEUROLOGYStart: 09-11-2024 End: 27-49-6990Prljpypf SupportBremadisyn Cadena MD Work Phone: noms SWS NEURComment on above:Nerve root and plexus disorder, unspecified (Primary Dx)Start: 09-11-2024 End: 69-05-2596Xmprmsl encounter procedureBreaidan Krause DO Work Phone: [facility] GroupSam[facility] Vascular Surg Work Phone: Start: 09-11-2024 End: 45-28-3494inrdhfcrndLlqzc Kuns DO Work Phone: [facility] Work Phone: Start: 07-31-2024 End: 81-81-1140Knbplh Preet Cadena MD Work Phone: noms BM NEUROLOGYStart: 07-31-2024 End: 45-54-8875Dbihnx Preet Cadena MD Work Phone: noms BM NEUROLOGYStart: 07-31-2024 End: 67-18-3041Xyxmedgi SupportOziel Cadena MD Work Phone: noms SWS NEURComment on above:Nerve root and plexus disorder, unspecified (Primary Dx)Start: 07-28-2024 End: 10-36-7566imfqrqooptNswxagw Vytautas Giedraitis MDFacility:[facility] [place] Start: 07-07-2024 End: 72-79-0885xztegadpakHtsluie Vytautas Giedraitis MDFacility:[facility] [place] Start: 07-03-2024 End: 93-93-9680ybykxszbhaQahqt Andreas DO Work Phone: [facility] Work Phone: Start: 07-03-2024 End: 06-45-3967Rytasdg encounter procedureBrett Kuns DO Work Phone: [facility] Work Phone: Start: 07-02-2024 End: 04-79-8716Mrdgdtmagdalena Cadena MD Work Phone: noms NEUROLOGYStart: 07-02-2024 End: 82-20-3336Kkhttv Preet Cadena MD Work Phone: noms BM NEUROLOGYStart: 07-02-2024 End: 09-03-8619Wjelrehn SupportOziel Cadena MD Work Phone: noms SWS NEURComment on above:Nerve root and plexus disorder, unspecified (Primary Dx)Start: 06-30-2024 End: 44-36-6053Ebyrhp follow up visit related to original pxXiaodale Harris MD Work Phone: [facility] CenterComment on above:Status post cervical spinal fusion (Primary Dx)Start: 06-30-2024 End: 17-54-9610dgfhikusvsGHZZARHAdventHealth AmbulatoryStart: 06-24-2024 End: 54-31-6118Cfbhgxl encounter procedureBreaidan Eckertroge DO Work Phone: [facility] Work Phone: Start: 06-24-2024 End: 41-03-3999nsivuqbxagGguts Kuns DO Work Phone: [facility] Work Phone: Start: 05-21-2024 End: 06-07-0295Jahdnf flowsMarshal Cadena MD Work Phone: noms NEUROLOGYStart: 05-21-2024 End: 99-35-1449Unssva flowsMarshal Cadena MD Work Phone: noms NEUROLOGYStart: 05-21-2024 End: 00-37-9708Eovjydcl SupportBremadisyn Cadena MD Work Phone: noms [facility] NEURComment on above:Other nerve root and plexus disorders (Primary Dx); Cervical paraspinal muscle spasm; Cervical stenosis of spinal canalStart: 04-30-2024 End: 36-64-2710Zatjty follow up visit related to original Kd Narayanan PA-C Work Phone: [facility] AvistaComment on above:Cervical radiculopathy (Primary Dx); Status post cervical spinal fusion; Acute postoperative pain; Muscle spasms of neckStart: 04-30-2024 End: 19-71-3408lsublxomghUVEU [facility] AmbulatoryStart: 04-28-2024 End: 90-87-5523dkxjviomvfBmfovymngUniversity Hospitals Portage Medical Center Work Phone: Start: 04-28-2024 End: 35-48-3829Utlnrve encounter procedureRegino Physician Group-[facility] Cardiology Work Phone: Start: 04-09-2024 End: 84-36-3953sdnrbdbwdgBMQNAFU [facility]ertart: 04-09-2024 End: 60-50-4057Ehdvwdrqpr and management of inpatientDoretha Harris MD Work Phone: [facility] 4Comment on above:Cervical radiculopathy (Primary Dx); Senile osteoporosisStart: 04-01-2024 End: 87-53-7806fxfzehiwcqEvyauodvzJ.W. [facility] Work Phone: Start: 04-01-2024 End: 42-52-4607Udwguwn encounter procedureRegino Physician Group-[facility] [place] Work Phone: Start: 03-31-2024 End: 67-73-4004Nxdmgdshuh hospital visit by physicianRad External FilmEF RAD EXTERNAL FILM VIRTUALComment on above:ArrivedStart: 03-31-2024 End: 74-45-5071ztkhwayszwXQECMXJ [facility]ertart: 03-26-2024 End: 30-85-6015ispcfflfehRHXIBNIPaulding County Hospitaltart: 03-19-2024 End: 27-37-6945bsyblylmsuLHWTC R KUNOhioHealth Riverside Methodist Hospitaltart: 02-13-2024 End: 86-75-4167Kiyxxyorso hospital visit by physicianEly X-Ray [address] [place], [place] [address]Comment on above:Cervical radiculopathyStart: 02-13-2024 End: 75-81-0248egucmzpsvtKQGZSXS [facility] Start: 02-13-2024 End: 07-29-8966iqiqiquxsoBAPQCRSThe Surgical Hospital at Southwoods Start: 02-11-2024 End: 79-30-7026xvigzfhucoWJFUUYLPaulding County Hospitaltart: 02-11-2024 End: 80-40-7889hruproarzyFNYLXUT ZHOUWestern Reserve Hospitaltart: 02-11-2024 End: 97-57-5371Euoqnnpatf hospital [facility] by physician[facility] Swr6189 Cr Nonv1 Holter/Ecg ResourceJefferson Strat[facility] ([facility] MatherComment on above:Cervical radiculopathy; Senile osteoporosisStart: 02-04-2024 End: 33-18-9134qvqfewywwuRCZDX R KUNSUniSt. Elizabeth Hospitaltart: 01-31-2024 End: 81-10-2496kdakliajynAyqdozyogJ.W. [facility] Hospital Work Phone: Start: 01-31-2024 End: 13-55-6553Xdxfgwt encounter procedureCaromont [facility] [place] Work Phone: Start: 01-03-2024 End: 54-28-0075Tgabea outpatient new 60 minutesDoretha Harris MD Work Phone: [facility] HospitalComment on above:Cervical radiculopathy (Primary Dx); Senile osteoporosisStart: 12-13-2023 End: 37-41-7990Soednh outpatient visit 40 minutesHelder Jack MD Work Phone: [facility] HospitalComment on above:Pontine glioma (Multi)Start: 12-13-2023 End: 47-88-5410kgopgupxtqRXMMFIR B NEWTONWestern Reserve Hospitaltart: 12-13-2023 End: 16-51-4653Vjbxhkeczy hospital visit by physician[facility] Mri [address] [place], [place] [address]Comment on above:Pontine glioma (Multi)Start: 12-13-2023 End: 48-20-7421keepmllugpMFFSD K SOTAKWestern Reserve Hospitaltart: 12-12-2023 End: 14-91-8675Piqkdo outpatient new 45 minutesSolomon Narayanan PA-C Work Phone: [facility] HospitalComment on above:Cervical radiculopathy (Primary Dx); Occipital neuralgia of left side; Balance problemStart: 12-03-2023 End: 84-06-9987okbjgydcpcWZ Griselda Krause Work Phone: [facility] Work Phone: Start: 12-03-2023 End: 71-27-1324Gwsrlvx encounter procedureDO Griselda Krause Work Phone: [facility] Work Phone: Start: 11-02-2023 End: 19-43-3100Icwbvp outpatient visit 25 minutesRacquel Cole MD Work Phone: Hematology/OncologyComment on above: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)Start: 10-29-2023 End: 34-89-5955efxajnqdxhAN Griselda Darling Work Phone: [facility] Work Phone: Start: 10-29-2023 End: 27-08-1905Cqnfqxg encounter procedureDO Griselda Darling Work Phone: [facility] Work Phone: Start: 25-97-7547Qtc-patient / Non-visitDO Griselda Eckertroge Work Phone: [facility] Work Phone: Start: 10-26-2023 End: 00-29-7705Celjygzwqv hospital visit by physicianArrival Time Radiology Work Phone: Radiology Pet CTComment on above: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]Start: 10-18-2023 End: 10-94-0445Lmrwdaq encounter procedureDO Griselda Krause Work Phone: [facility] Cardiology Work Phone: Start: 10-09-2023 End: 46-78-6238ywdwgveftsZD Griselda Kuns Work Phone: [facility] Work Phone: Start: 10-09-2023 End: 73-60-4326Dtwbhwp encounter procedureDO Griselad Krause Work Phone: [facility] Work Phone: Start: 10-05-2023 End: 40-79-0118Feumad outpatient new 60 minutesHelder Jack MD Work Phone: [facility] HospitalComment on above:Brainstem lesion (Primary Dx); Pontine glioma (Multi)Start: 09-19-2023 End: 03-51-2641Sribulfldz hospital visit by physicianRad External FilmEF RAD EXTERNAL FILM VIRTUALComment on above:ArrivedStart: 09-05-2023 End: 64-04-7216cepvnqqqqtBT Griselda Krause Work Phone: [facility] Work Phone: Start: 09-05-2023 End: 82-22-9316Xcujlcc encounter procedureDO Griselda Krause Work Phone: [facility] Work Phone: Start: 09-05-2023 End: 95-37-3355dxcqthtvdjBD Griselda Krause Work Phone: [facility] Work Phone: Start: 09-05-2023 End: 69-89-3485Nfmydhv encounter procedureDO Griselda Kuns Work Phone: [facility] Work Phone: Start: 08-15-2023 End: 17-88-9237Rncjwnk encounter procedureDO Griseldaaidan Krause Work Phone: [facility] [place] Work Phone: Start: 08-02-2023 End: 43-82-1119slmllirjykBA Griselda Kuns Work Phone: [facility] Work Phone: Start: 08-02-2023 End: 04-89-3566Vkixfpb encounter procedureDO Griselda Kuns Work Phone: [facility] Family [facility] Work Phone: Start: 31-33-0190Hwylv abstractingNikole Mota WELL CONTROL INSTRUCTOR Work Phone: noms [facility] NEURO 210Start: 14-66-6388Afzwhz flowsheet Nikole Mota WELL CONTROL INSTRUCTOR Work Phone: noms BM NEUROLOGYStart: 34-93-1543Mxhbcl flowsheet Nikole Mota WELL CONTROL INSTRUCTOR Work Phone: noms NEUROLOGYStart: 07-18-2023 End: 04-84-8240tlmdhnewjsKCEOEGHCA Florida Oak Hill Hospitaltart: 07-02-2023 End: 69-11-2051ulosiqymzjAuhbb Kuns Other [employer] Other Start: 95-64-5964Tfleez outpatient visit 25 minutes Griselda Lemus Family [facility] CastaliaStart: 07-02-2023 End: 49-42-0902Fswgqja encounter procedureDO Griseldaaidan Eckerts Work Phone: [facility] Work Phone: Start: 05-31-2023 End: 22-30-5306onwyvnuayqXlvvj Kuns Other noChinaNetCenter Other Start: 80-54-1251Arwuzp outpatient visit 25 minutes Griselda Lemus Family [facility] CastaliaStart: 85-15-2732Ytklqx outpatient visit 15 minutesNoétthaylie Kruse Vascular SurgeryStart: 05-30-2023 End: 05-23-2127zfqlyhkuteTA Griselda Kuns Work Phone: [facility] [employer] Other Start: 05-30-2023 End: 76-59-8064Evpuzuu encounter procedureDO Griselda Eckerts Work Phone: [facility]-Ul[facility]ound [facility] VascularStart: 05-30-2023 End: 46-18-8073Txaaoyl encounter procedureDO Griselda Kuns Work Phone: [facility] Work Phone: Start: 05-15-2023 End: 28-17-4314xlntlvcxehSiviz Kamla Other [facility] [employer] Other Start: 26-82-9126Grpzqr outpatient visit 25 minutes Lilliamnae MakigeFPG CardiologyStart: 40-72-8823Xyxkosuwy encounterLinda CiaraG Referral CoordinatorStart: 05-15-2023 End: 78-76-5323Pkypcig encounter procedureDO Griselda Krause Work Phone: [facility] Work Phone: Start: 05-07-2023 End: 60-48-1001Mjcsbwkhk to same day surgery centerDO Griselda Krause Work Phone: [facility]-Interventional Radiology Work Phone: Start: 05-07-2023 End: 79-01-9480wrlvccgbxuXH Griselda Kuns Work Phone: [facility] Work Phone: Start: 05-04-2023 End: 46-17-0006qbzrfflddaQR Griselda Kuns Work Phone: [facility] Work Phone: Start: 05-04-2023 End: 81-66-2570Inqexaf encounter procedureDO Griselda Kuns Work Phone: [facility]-CT Scan [place] Work Phone: Start: 05-03-2023 End: 86-02-7622crbguvwksrDazsyjm Langenberg Other [facility] [employer] Other Start: 41-17-3406Aniayx outpatient new 45 minutes Ruddy Pollard Vascular SurgeryStart: 54-26-7262Snbytniin encounter Ruddy Pollard Referral CoordinatorStart: 05-01-2023 End: 28-41-7425jxmziodvpkIwcgw Kuns Other [place] [employer] Other Start: 44-26-9602Cmllfg outpatient visit 25 minutes Griselda Lemus [facility] Medicine [place]Start: 04-25-2023 End: 40-06-1901vdclzbtvujZW Griselda Krause Work Phone: [facility] Work Phone: Start: 04-25-2023 End: 60-22-8892Itzyief encounter procedureDO Griselda Krause Work Phone: [facility]-Ultrasound [place] Work Phone: Start: 04-12-2023 End: 51-98-0175qrievmykgkBgyzm Kamla Other [facility] [employer] Other Start: 32-92-0304Xxwwwggbd encounterLinda AngusorogeFPG CardiologyStart: 04-11-2023 End: 25-21-5887wxmavrdbqdIiplh Kamla Other [facility] Other Start: 09-53-3582Sfmkqm outpatient new 45 minutesLinda AngusorogeFPG CardiologyStart: 04-10-2023 End: 55-62-0803iwsjpgqhslDrave Kuns Other [employer] Other Start: 79-80-6099Anwxzpadj encounterBreaidan KrauseSAM Family Medicine [place]Start: 03-30-2023 End: 28-89-7369bechgnxgqdGC Griselda Krause Work Phone: [facility] Work Phone: Start: 03-30-2023 End: 33-13-6288Rzfnbcd encounter procedureDO Griselda Krause Work Phone: [facility]-Lab [place] Work Phone: Start: 03-21-2023 End: 15-20-8946Hzbpaewqb department patient visitDO Griselda Krause Work Phone: [facility]-Emergency Room Work Phone: Start: 03-15-2023 End: 07-55-1530bwctjzhuycCoywy Darling Other [place] [employer] Other Start: 98-09-0213Dxgtwr outpatient visit 25 minutes Griseldaaidan EckertrogeSAM Family Medicine [place]Start: 03-08-2023 End: 85-11-2991wtqizyaqslAchnw Darling Other [place] [employer] Other Start: 99-11-4425Zqldok outpatient visit 25 minutes Griseldaaidan EckertrogeSAM Family Medicine Cast[place]Start: 02-26-2023 End: 85-54-3508Vpwfdogjm department patient visitDO Griselda Krause Work Phone: [facility]-Emergency Room Work Phone: Start: 33-74-9808rhngytyuqjQv. ADAM J HEDAYA Facility:UNKNOWNStart: 12-05-2022 End: 67-52-7571yxvvvfeqepGsebp Kuns Other [employer] Other Start: 94-42-9370Sxxmak outpatient visit 25 minutes Griselda AndrearogeSAM Family Medicine [place]Start: 11-15-2022 End: 66-28-3423nyepjqmcgyXJ Griselda Krause Work Phone: [facility] Work Phone: Start: 11-15-2022 End: 98-58-9639Lhanldi encounter procedureDO Griselda Krause Work Phone: [facility]-MRI [address] Work Phone: Start: 10-27-2022 End: 55-78-7954Dizjncxgfw hospital visit by physicianArrival Time Radiology Work Phone: Radiology Pet CTComment on above:Malignant neoplasm of head, 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]Start: 10-24-2022 End: 33-53-7850oqvfsvrhcdDJ Griselda Krause Work Phone: [facility] Work Phone: Start: 10-24-2022 End: 75-68-9408Oacjjdf encounter procedureDO Griselda Krause Work Phone: [facility]-Lab [place] Work Phone: Start: 09-28-2022 End: 59-04-6073hyjigscvreQLKC R SULLINGERFacility:[facility] HospitalStart: 09-22-2022 End: 59-47-4031Kydcwwhqlp hospital visit by Beth Hernandez (I-Stat/3t) Work Phone: RadiologyComment on above: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]Start: 71-00-0562Qmnwoccxk encounterScandie Perez PA-C Work Phone: [facility] CenterComment on above:Patient QuestionStart: 09-13-2022 End: 66-83-2111Rfkwbhp encounter procedureScandie Perez PA-C Work Phone: [facility] Brain Tumor CenterComment on above:NPH (normal pressure hydrocephalus) (HCC) (Primary Dx)Start: 08-31-2022 End: 03-75-0144zotdksxbdhBndgf Kuns Other [facility] [employer] Other Start: 04-56-7507Sffmhf outpatient visit 25 minutes Griselda Lemus [facility] Medicine [place]Start: 08-01-2022 End: 06-85-1105llxdyczsksNbbqj Kuns Other [facility] [employer] Other Start: 81-08-7136Xlxxbf outpatient visit 25 minutes Griselda Lemus [facility] Medicine [place]Start: 07-17-2022 End: 90-10-7619wfpyqjmlfvMS Griselda Kuns Work Phone: [facility] Work Phone: Start: 07-17-2022 End: 98-09-6307Gyhhptb encounter procedureDO Griselda Kuns Work Phone: [facility]-XRay [place] Work Phone: Start: 07-14-2022 End: 18-14-5782Ucstaxn encounter procedureDO Griselda Kuns Work Phone: [facility]-CT Scan [place] Work Phone: Start: 06-28-2022 End: 81-59-8910zsgnietvgzKczxhcz [employer] Other noYAZUO [employer] Other start: 98-68-5763Yhggjn outpatient new 45 minutes Trish [facility] NeurosurgeryStart: 05-26-2022 End: 77-81-1300cclkdzwpofRgpsn Kuns Other [employer] Other Start: 04-09-2846Ntjtsx outpatient visit 25 minutes Griselda Lemus Family Medicine CastaliaStart: 05-17-2022 End: 33-78-9983innrtxjnitMN Griselda Krause Work Phone: [facility] Work Phone: Start: 05-17-2022 End: 88-70-6052Umbkkiqwmk RecurringDO Griselda Krause Work Phone: [facility]-Physical Therapy [address]Start: 39-83-6081Euyjjakhbg RecurringDO Griselda Krause Work Phone: [facility] Therapy [address]Start: 04-16-2022 End: 86-09-3563Hqsxaiyoj department patient visitDO Griselda Krause Work Phone: [facility]-Emergency RoomStart: 04-10-2022 End: 87-80-5014jrxteebpbfTfwvx Kuns Other [facility] Other Start: 98-86-7978Abdizhexi encounterBreaidan Lemus [facility] CastaliaStart: 04-06-2022 End: 23-17-1365Ocnohbpnm department patient visitDO Griselda Krause Work Phone: [facility]-Emergency RoomStart: 48-05-2961Adjtnggie encounterJelisa Reynolds RNHematology/OncologyComment on above:AppointmentStart: 03-22-2022 End: 31-62-1456tiddtnhkhzKgonf Kuns Other [facility] Other Start: 21-32-5325Sdnngatro encounterGriselda Lemus Family [facility] CastaliaStart: 03-16-2022 End: 77-98-2335tbcxdbduhhAikor Kuns Other [facility] Other Start: 43-56-9128Ccyvqu outpatient visit 25 minutes Griselda Lemus Family [facility] CastaliaStart: 15-13-4445Xjcnixddj encounterSelf [facility] Tumor CenterComment on above:Triage (Internal Referral--old) Start: 03-09-2022 End: 70-65-6586ojzhpapmqcEjmoh Kuns Other [employer] Other Start: 02-09-1724Jyeswxiad encounterBrett Allan [facility] CastaliaStart: 03-07-2022 End: 39-35-5739ojtgxjyvjdTqdsj Kuns Other [employer] Other Start: 45-59-8283Btotrzvxg encounterBreaidan Lemus Family Medicine CastaliaStart: 92-72-5384Umrpyaxtz encounterBreaidan Lemus [facility] [place]aliaStart: 03-03-2022 End: 22-00-7879idcgbxwtxaJL Griselda Krause Work Phone: [facility] [employer] Other Start: 03-03-2022 End: 44-97-3901Raetsxvvot RecurringDO Griselda Eckerts Work Phone: [facility] Therapy [address]Start: 03-18-2309Gatmatzyeq RecurringDO Griselda Kuns Work Phone: [facility] [address]Start: 02-07-2022 End: 65-16-9587zppczxtdjkAqppm Kuns Other [facility] [employer] Other Start: 63-08-8489Bqkkqizlg encounterBreaidan Lemus Family Medicine [place]aliaStart: 01-30-2022 End: 17-25-4960fdbgunsaklCzrcd Kuns Other no[facility] Other Start: 15-49-3824Rwtbva outpatient visit 25 minutes Griselda Lemus [facility] [place]Start: 01-12-2022 End: 07-31-4319pjrgrdlsrnNfcdw Kuns Other [facility] [employer] Other Start: 60-94-5260Qpnmbglbs encounterBrett AndreasFPG Family Medicine CastaliaStart: 12-26-2021 End: 17-17-6794mljjjkhewwInjze Kuns Other [facility] [employer] Other Start: 29-53-2193Qbzboo outpatient visit 25 minutes Griselda AndreasFPG Family [facility] [place]aliaStart: 12-23-2021 End: 00-90-6476nrlgkjegthUifgu Kuns Other [facility] [employer] Other Start: 75-84-7195Ozxyvsznm encounterBrett AndreasFPG Family Medicine [place]aliaStart: 12-05-2021 End: 31-39-3915ehdvbcncihSnmsm Kuns Other [facility] [employer] Other Start: 94-22-9760Bqqmne outpatient visit 25 minutes Griselda AndreasFPG Family [facility] CastaliaStart: 86-36-3775Ihopqlgnl encounterBrett AndreasFPG Family Medicine [place]aliaStart: 11-22-2021 End: 43-85-8433dqikiiyonoJbgfb Kuns Other [place] [employer] Other Start: 77-24-6414Tcspokqps encounterBrett AndreasFPG Family Medicine CastaliaStart: 06-40-0692Xczfwg outpatient visit 15 minutesGriselda Krause Work Phone: [phone]-Kyzggbtkfgmv-Lynn Work Phone: Start: 11-09-2021 End: 81-45-3973vntzxjqfyyWdfag Kuns Other [facility] [employer] Other Start: 77-19-8159Qwpaepalv encounterGriselda Lemus [facility] CastaliaStart: 11-08-2021 End: 72-21-2281kbeazpsahjZbuto Kuns Other [facility] [employer] Other Start: 55-83-2274Muxhnl outpatient visit 25 minutes Griselda KrauseAleta [facility] CastaliaStart: 22-50-5320Vgviqi consultation new/estab patient 60 minGriselda Krause Work Phone: [phone]-[facility]ojUniversity [facility] Work Phone: start: 11-01-2021 End: 01-38-1516crsijfjymlVqwfp Kuns Other [facility] [employer] Other Start: 15-06-9938Kdozqe outpatient visit 25 minutes [facility]Low[facility] [place]aliaStart: 10-31-2021 End: 17-19-3898mmocfqmsuvBgblxf Elskens Other [facility] [employer] Other start: 04-74-5657Aqifygzxz encounterDadionicio AlatorreCarilion New River Valley Medical CenterAleta [facility] NeurosurgeryStart: 10-27-2021 End: 85-36-5294ahzklzjupoFczep Abhyankar MD Work Phone: Hematology/OncologyComment on above: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); Lung nodules; Malignant neoplasm of head, face and neck (HCC)Start: 10-27-2021 End: 49-49-6597Yavqnnjdrftx consultation with Radha Cole MD Work Phone: SANDUSKYStart: 10-24-2021 End: 66-40-3657pylompbinrNwxcus Elskens Other [facility] Other start: 92-06-0205Tukosg outpatient new 30 minutes Sheng SchneiderSaint Thomas River [facility] Hospital NeurosurgeryStart: 14-25-0276Wxuyhfvay encounter Racquel Cole MD Work Phone: Cancer Appts MCComment on above:Referral Information (Neurosurgery)Start: 10-13-2021 End: 41-78-2895odzxwwhzunVlxul Abhyankar MD Work Phone: Hematology/OncologyComment on above:Glioma of brain (HCC) (Primary Dx); Lung nodules; Primary squamous cell carcinoma of head and neck (HCC)Start: 10-13-2021 End: 14-30-6991Wsihxnr encounter Bernard Cole MD Work Phone: SANDUSKYStart: 10-06-2021 End: 83-73-2864sdwkfclvicFacac Kuns Other [facility] Other Start: 35-40-1491Pbbtqxqup encounterAsya Kumar RN Hematology/OncologyComment on above:ResultsStart: 10-06-2021 End: 78-18-0818Vlqmcxfuky hospital visit by physicianArrival Time Radiology Work Phone: Radiology Pet CTComment on above:Malignant neoplasm of head, 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]Start: 09-29-2021 End: 10-27-2615ctdlorvsqxZaubi Kuns Other [facility] Other Start: 27-83-3471Dxouspwrb encounterBrett BrooklynnAleta Chavez Primary CareStart: 09-27-2021 End: 24-36-5169ufstncwwyxQadgf Kuns Other [facility] Other Start: 82-20-5692Jmaxwnevb encounterBrett BrooklynnAleta Chavez Primary CareStart: 09-19-2021 End: 18-28-8408gbvnqddwmqUeuys Kuns Other [facility] Other Start: 28-34-5999Jgzbcz outpatient visit 25 minutes Griseldaaidan OvertonG Family Medicine [place]aliaStart: 09-12-2021 End: 40-47-1563lpfkatnglmPntjn Kuns Other [facility] [employer] Other Start: 84-62-2616Upwkrbzyg encounterBrett BrooklynnG Family Medicine [place]Start: 09-08-2021 End: 24-22-3861ftwmfaguinHxrws Kuns Other [facility] [employer] Other Start: 05-54-1426Ianxvfizu encounterBrett BrooklynnG Family Medicine [place]Start: 06-30-2021 End: 88-09-5832bkvcdmpfmjWtlpr Kuns Other [facility] [employer] Other Start: 61-60-7190Vwpnmq outpatient visit 15 minutes Griseldaaidan OvertonG Family Medicine [place]Start: 02-21-9931Abjqtpdar encounterBrett BrooklynnG Family Medicine [place]aliaStart: 06-29-2021 End: 58-62-7230mqvldmntjiYzzzh Kuns Other [facility] [employer] Other Start: 20-78-7927Zqszkzi evaluation of patient and reportBreaidan OvertonG Family Medicine [place]aliaStart: 04-19-2021 End: 84-48-8594xjoeipmjpuGssab Kuns Other [facility] [employer] Other Start: 22-28-1646Iduxhgs evaluation of patient and reportBreaidan KrauseFPG Family Medicine CastaliaStart: 17-70-4939Ialnzotke encounter Griselda BrooklynnG Family Medicine [place]aliaStart: 98-02-9302Mypync outpatient visit 15 minutesBrett BrooklynnG Family Medicine [place]aliaStart: 10-01-2020 End: 45-36-1489Lnedjkd encounter procedureBrett Andreas Work Phone: [phone]-WkvqotbmwmrcnmijqwKogfv: 09-20-2020 End: 95-09-2571Hdwmmio encounter procedureBreaidan [facility] End: 40-54-7765Qqunziv encounter procedureGriselda Krause-XRay [facility] Procedures DateProcedureProcedure DetailPerforming ClinicianStart: 79-05-0743DCS HEAD/BRAIN WO/W Irene Cadena MD Work Phone: Start: 75-37-0497Eceev brachial pressure indexBreaidan Krause DO Work Phone: Start: 01-08-2025 End: 92-01-3724NATYTBYSYJC SKIN LESIONRylee Salvador SAAVEDRA Work Phone: Start: 95-45-5664Pphtv chest X-rayGriselda Krause DO Work Phone: Start: 85-24-4661Wdocf Strep (POC)Griselda Krause DO Work Phone: Start: 11-65-8038XJQ (POC)Griselda Krause DO Work Phone: Start: 24-26-4457WkjhjdhcdtpddychctxxmcvyshVjzgk Kuns DO Work Phone: Start: 77-28-6659Ke soft tissue neck w/contrast materialRacquel Cole MD Work Phone: Start: 60-05-8972Bb thorax w/contrast materialRacquel Cole MD Work Phone: Start: 14-21-8412Qbnnq count complete auto&auto difrntl wbcMinsheldon Hagan PA-C Work Phone: Start: 62-93-6663Jmoaf Interpretation of outside study Doretha Harris MD Work Phone: start: 73-27-0134H-ray of cervical spineGriselda Krause DO Work Phone: Start: 84-78-6431Hrfcblva tomography of abdomen and pelvis with contrastBre [employer] DO Work Phone: Start: 28-20-4772SN of soft tissues of neck with contrast [employer] DO Work Phone: Start: 73-91-8332Dehtykomapk Panel (PCR)GriseldaCycle Money DO Work Phone: Start: 61-90-6084Tiutc chest X-ray [email or web address] Work Phone: Start: 53-60-5352Osxht brachial pressure indexBre [email or web address] Work Phone: Start: 66-75-4832Z-ray of cervical spineBre [email or web address] Work Phone: Start: 40-02-7986Czire metabolic panel calcium total Chicho Bryan MD Work Phone: [phone]: 09-08-9227Etfyj spine cervical 2 or 3 views Nate Alvarez MD Work Phone: [phone]: 88-61-3964KCZWN OXIMETRY, Savannah Cheek MD Work Phone: [phone]: 24-98-5962KR tomography Unspecified body region Doretha Harris MD Work Phone: [phone]: 64-49-1312Nvmggmra bldAngela M Capp CAA Work Phone: [phone]: 04-09-2024 End: 09-92-6660Nwiiak ant interbody decompress cervical belw f1Yrjiccqlara Harris MD Work Phone: [phone]: 48-10-8380Jmpnz typing serologic rh (d)Doretha Harris MD Work Phone: [phone]: 60-66-1226Shroe Interpretation of outside study Doretha Harris MD Work Phone: [phone]: 52-79-7560Ycy bone density study 1/> sites axial skelDoretha Harris MD Work Phone: start: 72-92-3390Vdt routine ecg w/least 12 lds trcg only w/o i&rXiaodale Harris MD Work Phone: [phone]: 71-57-6414Kcw brain brain stem w/o w/contrast Bo Heaton PA-C Work Phone: [phone]: 08-51-6391Uo soft tissue neck w/contrast Liudmila Cole MD Work Phone: Start: 60-65-2535Ei thorax w/contrast Liudmila Cole MD Work Phone: Start: 71-72-5906Zszca count complete auto&auto difrntl wbcRacquel Cole MD Work Phone: Start: 94-21-2369Riycybmcvcr Panel (PCR)DO Griselda Krause Work Phone: Start: 75-54-5382Ssbgj chest X-rayDO Griselda [employer] Work Phone: Start: 05-08-9572Mxjid Interpretation of outside study Ayah Gross MD Work Phone: Start: 17-16-2094Uwukh brachial pressure indexDO Griselda [employer] Work Phone: Start: 18-70-6166Gxhyq limb angiographyDO Griselda Mercateoroge Work Phone: Start: 76-38-9105YY angiography of headDO Griselda [employer] Work Phone: Start: 49-40-8790DF angiography of neck vesselsDO Griselda [employer] Work Phone: Start: 64-07-1840Mzxia volume recorder pneumoplethysmographyDO Griselda Mercateoroge Work Phone: Start: 54-88-7730ACUZ Antigen (LFIA)DO Griselda Krause Work Phone: Start: 64-31-4967XL lumbar spine wo conDO Griselda Krause Work Phone: Start: 06-98-6608TI pre/post mri xrayDO Griselda Krause Work Phone: Start: 26-06-9830Nk thorax w/contrast Liudmila Cole MD Work Phone: Start: 87-13-0011Fx soft tissue neck w/contrast Liudmila Cole MD Work Phone: Start: 03-72-3580Mxibi count complete auto&auto difrntl wbcRacquel Cole MD Work Phone: Start: 79-52-9311Spt brain brain stem w/o w/contrast Chai Perez PA-C Work Phone: Start: 77-68-7120FX of head without contrastDO Griselda Krause Work Phone: Start: 48-29-3097Wpctz chest X-rayDO Griselda Krause Work Phone: Start: 33-87-8871JI cervical spine without contrastDO Griselda Krause Work Phone: Start: 97-72-3095Vphze depression screening assessment Racquel Cole MD Work Phone: Start: 32-28-4231Vh soft tissue neck w/contrast Liudmila Cole MD Work Phone: Start: 46-09-3853Tu thorax w/contrast Liudmila Cole MD Work Phone: Start: 68-71-5756Ygcte count complete auto&auto difrntl wbcRacquel Cole MD Work Phone: Start: 90-24-8439Pvujg depression screening assessment Asya Engelson RNStart: 53-92-6867Jremj chest X-rayGriselda Robertsxcision of melanomaBreaidan Krause Work Phone: Plan of Treatment DateCare ActivityDetailAuthorStart: 77-92-7681LZZ Vaccine (1 - 1-dose 75+ series)RSV Vaccine (1 - 1-dose 75+ series)[facility] 04-10-2027 Diabetes ScreeningDiabetes ScreeningOhioHealth Riverside Methodist Hospitaltart: 22-95-6017Ixkrhwoi ScreeningDiabetes ScreeningOhioHealth Riverside Methodist Hospitaltart: 80-32-5632Bnyaiufex for osteoporosisBone Density [facility] CampusStart: 01-08-2026 End: 91-66-6117Ngkrxzt encounter procedureNOMS SWS DERMStart: 04-30-2025 End: 38-60-7656Lfpieewb Zyelgdq4204/30/2025 2:00 PM EST Clinical Support [facility] [address] [phone] Oziel Cadena MD [address] [place] [address] [place] [address] [facility] NeurologyStart: 04-06-2025 End: 36-67-5920Xdqmsof encounter nesdxueiw20/20/2025 9:30 AM EDT Office Visit [facility] [address] [place] [address] [address] [place] [address] Doretha Harris MD [address] [place] [address] [facility] CenterStart: 03-18-2025 End: 09-77-4100Jthqgtba Ngjmokn3303/18/2025 2:20 PM EDT Clinical Support [facility] [address] [facility] [address] [place] [address] Oziel Cadnea MD [address] [place] [address] [facility] NeurologyStart: 03-18-2025 End: 52-11-3933Swmdibvu Snrpuzq6403/18/2025 11:30 AM EDT Clinical Support NOMRoge [facility] [address] [place] [address] Oziel Cadena MD [address] [address] [place] [address] ArrivedNOMS [place] NeurologyComment on above:ArrivedStart: 82-37-1367Cqyss brachial pressure indexCleveland Clinic Mentor Hospitaltart: 04-17-9243IYWQG-19 Vaccine ( season)COVID-19 Vaccine ()[facility] HealthcareStart: 59-56-2603Cahcmrtej vaccinationNOMS HealthcareStart: 02-04-2025 End: 56-64-0302Kaczoehz SupportNOMS SWS NEURComment on above:ArrivedStart: 01-08-2025 End: 72-64-8101Fyuuaxk encounter procedureNOMS SWS DERMComment on above:Arrived Start: 01-01-2025 End: 52-78-4093Xzdbrfx encounter tehubarpp99/17/2025 10:30 AM EDT Office Visit [facility] [address] [place] [phone] Anahi Franco PA [address] [place] [address] [facility] SWS DERMStart: 12-24-2024 End: 08-29-6154Mvkmpjai SupportNOMS SWS NEURComment on above:ArrivedStart: 11-12-2024 End: 66-81-7244Srzrpyof SupportNOMS SWS NEURComment on above:ArrivedStart: 11-07-2024 End: 79-56-4426Ovcpbn-up encounterHematology/OncologyComment on above:[address] and labStart: 23-04-3061CbbxtaghzTrumbull Memorial Hospital Start: 11-03-2024 End: 08-34-3422Tbwgkzvhmvele metabolic 2000 panel - Serum or PlasmaCOMPREHENSIVE METABOLIC PANEL Lab Routine 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) Expected: 11/01/2024 (Approximate), Expires: 11/01/2024leveland ClinicComment on above:Expected: 11/01/2024 (Approximate), Expires: 11/01/2024Start: 11-01-2024 End: 87-58-4696Aokgrioqigbft metabolic 2000 panel - Serum or PlasmaCOMPREHENSIVE METABOLIC PANEL Lab Routine 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) Expected: 11/01/2024 (Approximate), Expires: 11/01/2024[facility] on above:Expected: 11/01/2024 (Approximate), Expires: 11/01/2024Start: 11-01-2024 End: 94-72-6050LF Chest W contrast IVCT CHEST W IVCON Radiology Routine 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 Work Phone: Comment on above:Expected: 11/01/2024 (Approximate), Expires: 12/01/2024Start: 53-39-9004C-ray of cervical spineXR cervical spine 2V [facility] Hospitaltart: 61-06-2590QE Cervical spine 2 Views [facility] Hospitaltart: 42-55-9973VZTENGLF SCREENDIABETES SCREEN [facility]tart: 09-29-2024 End: 00-30-1522Mivwlqz encounter elmagttcr14/14/2025 11:00 AM EDT Office Visit [facility] [address] [facility] [address] [place] [address] Doretha Harris MD [address] [facility] [place] [address] [facility] CenterStart: 09-11-2024 End: 43-56-8578Vqhlcduj Fjahimc1509/11/2024 10:40 AM EDT Clinical Support [facility] [address] [place] [address] Oziel Cadena MD [address] [facility] [address] [place] [address] [facility] NEURStart: 68-30-5097Ozvdp brachial pressure indexUS ankle/arm indicesCleveland Clinic Mentor Hospitaltart: 07-31-2024 End: 64-97-5340Zxxaefme SupportNOMS SWS NEURComment on above:ArrivedStart: 07-02-2024 End: 63-76-1825Grlvekmb SupportNOMS SWS NEURComment on above:ArrivedStart: 06-30-2024 End: 26-50-5784LA Cervical spine 2 or 3 ViewsXR cervical spine 2-3 views Imaging Routine Status post cervical spinal fusion Expected: 06/30/2024, Expires: 06/30/2025[facility] Service Area Work Phone: Comment on above:Expected: 06/30/2024, Expires: 06/30/2025Start: 06-30-2024 End: 74-72-5963Wiocuwt encounter procedureOhiohealth Southeastern Medical CenterStart: 05-21-2024 End: 44-25-1738Qvmepuxt Xwczwge3405/21/2024 2:00 PM EST Clinical Support [facility] [address] [place] [address] Oziel Cadena MD [address] [facility] [address] [place] [address] ArrivedNOMS SWS NEURComment on above:ArrivedStart: 05-16-2024 End: 93-75-9754Kfbjtgd encounter qazowjnhz91/29/2024 9:15 AM EST Office Visit [facility] [address] [place] [address] [address] [place] [address] Doretha Harris MD [address] [facility],[address] [place], [place] [address] [facility] CenterStart: 05-02-2024 End: 30-44-3906Bgdolhv encounter procedureJefferson [facility] [place] Start: 04-30-2024 End: 88-72-2614DC Cervical spine 2 or 3 ViewsXR cervical spine 2-3 views Imaging Routine Cervical radiculopathy Status post cervical spinal fusion Expected: 04/30/2024, Expires: 04/30/2025[facility] Service Area Work Phone: Comment on above:Expected: 04/30/2024, Expires: 04/30/2025Start: 04-30-2024 End: 53-45-8190Sriqsmw encounter aokyqcrdq55/13/2024 1:00 PM EST Office Visit [facility] [address] [place] [address] Solomon Narayanan PA-C [address] [place] [address] [facility]istaStart: 04-09-2024 End: 59-00-8741Ynwrsdnkc to same day surgery ghpngm6604/09/2024 7:45 AM EDT - 04/09/2024 12:25 PM EDT Surgery [facility] [place] [address] [place] [address] Doretha Harris MD [address] [facility] [place], [place] [id number] Fusion Spine Anterior Cervical and Discectomy C5-6, C6-7 [95754 (CPT )][facility] [place] ORComment on above:Fusion Spine Anterior Cervical and Discectomy C5-6, C6-7 [58834 (CPT )]Start: 04-09-2024 End: 24-65-4090Otzzpi ant interbody decompress cervical belw w8Bftmzu Spine Anterior Cervical and Discectomy Cervical radiculopathy Senile osteoporosis 47:45 AM EDTVirtual [facility] [place] ORStart: 56-41-8977Mqywbnibir hospital visit by uipjkbitd53/23/2024 7:45 AM EDT Hospital Encounter [facility] [place] [address] [place] [address] Doretha Harris MD [address] [facility] [place] [address] [facility] [place] ORStart: 02-12-3646OWiR/Tdap/Td Vaccines (2 - Td or Tdap)DTaP/Tdap/Td Vaccines (2 - Td or Tdap)[facility] HospitalStart: 55-36-8365Fzmik microalbumin profileDTaP,Tdap,Td Vaccine (2 - Td or Tdap)[facility]Start: 03-11-2024 End: 71-45-9655Dkgjkif encounter hurerhdrx13/24/2024 11:30 AM EDT Office Visit [facility] [address] [address] Solomon Narayanan PA-C [address] [place] [address] [facility]istaStart: 54-74-7881Cczoucznv vaccinationInfluenza Vaccine (#1)NOM[facility] HealthcareComment on above:Postponed from 02/16/2023 (Patient Refused)Start: 02-27-2024 End: 95-37-4130Aclkwhzyo to same day surgery centerJefferson [facility] [place] ORComment on above:Anterior Cervical Discectomy and Fusion C5-6, C6-7 [80428 (CPT )]Start: 02-27-2024 End: 68-86-7207Wtawuv ant interbody decompress cervical belw q3Xqgbsra [facility] [place] ORStart: 91-19-2866Rvrkhweief hospital visit by physicianJefferson [facility] [place] ORStart: 30-55-8913JCEWO-19 Vaccine ( season) COVID-19 Vaccine ( season)[facility] HospitalStwinn: 03-57-7283Ovcgq-19 Vaccine ( season)Covid-19 Vaccine ( season)[facility] Hospitaltart: 06-10-2932Kgiye-19 Vaccine ( season) Covid-19 Vaccine ( season)[facility] Hospitaltart: 32-15-9682Rgjnmabtp vaccinationSumma Health [facility]: 02-15-2024 End: 54-99-3144Hpqwdoe encounter hcjgaijhr61/30/2024 9:00 AM EDT Office Visit [address] [place] [address] Vincenzo Sanchez MD [address] [place] [address] [address], [address] [place] [address] [facility]istaStart: 02-13-2024 End: 44-78-2049Uqrquuf encounter iudcydjjm80/28/2024 11:00 AM EDT Appointment [facility] [address] [place] [facility] [place] [address] LKNorth Suburban Medical Centertart: 02-03-2024 End: 46-08-4151Ttjzirsn and Metabolites,SNicotine and Metabolites,S Lab Routine Cervical radiculopathy Senile osteoporosis Expected: 02/03/2024 (Approximate), Expires: 01/02/2025[facility] Work Phone: Comment on above:Expected: 02/03/2024 (Approximate), Expires: 01/02/2025Start: 01-03-2024 End: 69-03-1309PKY Skeletal system.axial Views for bone densityXR DEXA bone density axial skeleton w VFA Imaging Routine Senile osteoporosis Expected: 01/03/2024,Expires: 01/02/2025[facility] Service Area Work Phone: comment on above:Expected: 01/03/2024, Expires: 01/02/2025Start: 01-03-2024 End: 01-48-1390OC Cervical spine 6 ViewsXR cervical spine complete 6+ views Imaging Routine Cervical radiculopathy Expected: 01/03/2024, Expires: 01/02/2025 [facility] Work Phone: Comment on above:Expected: 01/03/2024, Expires: 01/02/2025Start: 01-03-2024 End: 95-45-3773Bircivm encounter fecmrfbot56/18/2024 1:30 PM EDT Office Visit [facility] [address] Rothman [address] [place] [address] [phone] Doretha Harris MD [address] [facility], [address] [phone] [facility] 12-13-2023 End: 44-02-6152PO Brain WO and W contrast IVMR brain w and wo IV contrast Imaging Routine Pontine glioma (Multi) Expected: 12/13/2023 (Approximate), Expires: 12/12/2024[facility] Service Area Work Phone: comment on above:Expected: 12/13/2023 (Approximate), Expires: 12/12/2024Start: 12-13-2023 End: 63-38-9522Oqvvram encounter procedureHancock County Hospitaltart: 09-28-2023 End: 82-11-1586Wksasdc encounter /12/2024 10:15 AM EDT Office Visit [facility] [address]st [place] [address] [place] [address] Department [place] [address] [facility]: 36-04-7869Vlfhd brachial pressure indexCleveland Clinic Mentor Hospitaltart: 08-30-2023 End: 58-37-5121Qkwmkhj encounter iaqehnhio53/14/2024 9:40 AM EDT Office Visit [facility] [address] [facility] [address] [place] [address] Nikole Mota NP [address] [place] [address] [facility]: 07-26-2023 End: 02-32-0419Feuzyum encounter hmazzhxfu44/08/2024 1:30 PM EST Procedure Visit [facility] 210 [address] [place] [phone] Nikole Mota [employer] [address] [place] [address] [facility]O 210Start: 07-19-2023 End: 30-79-9700Tdhxnhix Gptfqhu5207/19/2023 1:30 PM EST Clinical Support [facility] [address] [place] [address] Nikole Mota, WELL [employer]OL INSTRUCTOR [address] [facility] [address] [phone] Cervical dystoniaNOMS SWS NEURComment on above: Cervical dystoniaStart: 25-59-8476Xdeypaxgiz Health ScreeningBehavioral Health ScreeningOhioHealth Riverside Methodist Hospitaltart: 05-21-2029Zwqoi volume recorder pneumoplethysmographyUS arterial pvr rest [facility] Start: 14-29-2840LqffpgshsCleveland Clinic Mentor Hospitaltart: 86-04-1882MexdeqossCleveland Clinic Mentor Hospitaltart: 13-50-8112Oxhuk volume recorder pneumoplethysmographyUS arterial pvr rest [facility] Start: 22-73-3341BNERT-19 Vaccine ( season)COVID-19 Vaccine ( season)[facility]: 98-15-7738Mhhtrokcs vaccinationINFLUENZA (Season Ended)[facility]: 76-32-6750LXZ High Risk: (Elderly (60+) or Population) (1 - Risk 60-74 years 1-dose series)RSV High Risk: (Elderly (60+) or Population) (1 - Risk 60-74 years 1-dose series)[facility]: 93-41-4169AUU patients and/or patients aged 60+ years (1 - 1-dose 60+ series)RSV patients and/or patients aged 60+ years (1 - 1-dose 60+ series) [facility]: 40-66-7526YEL Vaccine (1 - 1-dose 60+ series)RSV Vaccine (1 - 1-dose 60+ series)[facility]: 10-30-2022 End: 31-43-7333MTV W Auto Differential panel - BloodCBC + DIFF Lab Routine 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 Work Phone: Comment on above:Expected: 10/30/2022 (Approximate), Expires: 10/30/2022Start: 10-30-2022 End: 68-10-9724Msywrgeknsbhb metabolic 2000 panel - Serum or PlasmaCOMP METABOLIC PANEL Lab Routine 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 Work Phone: Comment on above:Expected: 10/30/2022 (Approximate), Expires: 10/30/2022Start: 10-30-2022 End: 34-18-5995Qv soft tissue neck w/contrast materialCT NECK SOFT TISSUE W IVCON Radiology Routine Malignant neoplasm of head, face and neck (HCC) Expect ed: 10/30/2022 (Approximate), Expires: 11/29/2022[facility] Work Phone: Comment on above:Expected: 10/30/2022 (Approximate), Expires: 11/29/2022Start: 10-30-2022 End: 10-64-2704Yl thorax w/contrast materialCT CHEST W IVCON Radiology Routine Lung nodules Expected: 10/30/2022 (Approximate), Expires: 11/29/2022[facility] Work Phone: Comment on above:Expected: 10/30/2022 (Approximate), Expires: 11/29/2022Start: 52-22-2254Igqvd depression screening assessment DEPRESSION SCREENINGOhioHealth Riverside Methodist Hospitaltart: 30-37-5940Bppplqr CultureAerobic CultureCleveland Clinic Mentor Hospitaltart: 32-86-7753Lgmfxhowf Culture Anaerobic CultureCleveland Clinic Mentor Hospitaltart: 09-87-8449Jpwpzhzdlww observation [Identifier] in Unspecified specimen by Gram stainCleveland Clinic Mentor Hospitaltart: 30-21-0848Bdqmcmhnrzckm fluid cultureCleveland Clinic Mentor Hospitaltart: 07-17-2022 End: 95-08-3842CvfvqbdcpCleveland Clinic Mentor Hospitaltart: 21-00-1883RexmintxtCleveland Clinic Mentor Hospitaltart: 95-88-2927SHWIJWPGGY ASSESSMENTDEPRESSION ASSESSMENTOhioHealth Riverside Methodist Hospitaltart: 00-03-4941Hiuls chest X-rayXR ribs LT min 3V w CXR1V*[facility]: 56-86-2355BI Unspecified body region ViewsCleveland Clinic Mentor Hospitaltart: 98-70-2886Bwwqnhsxc vaccinationOhioHealth Riverside Methodist Hospitaltart: 89-86-5625Gwbic depression screening assessmentDEPRESSION SCREENINGOhioHealth Riverside Methodist Hospitaltart: 28-58-1074TOFWA-19 VACCINE (3 - Booster for Pfizer series)COVID-19 VACCINE (3 - Booster for Pfizer series) [facility]: 32-43-4008DAKLGDDCEE ASSESSMENTDEPRESSION ASSESSMENT [facility]: 94-68-8317KTKKX-19 VACCINE (3 - Booster for Pfizer series)COVID-19 VACCINE (3 - Booster for Pfizer series)[facility]: 42-28-1928NHYHOCIR CANCER SCREENING DISCUSSIONPROSTATE CANCER SCREENING DISCUSSIONOhioHealth Riverside Methodist Hospitaltart: 57-82-5587Kuxxsgqa specific antigen measurement Prostate Cancer Screening DiscussionOhioHealth Riverside Methodist Hospitaltart: 2012 Pneumococcal Vaccine: 50+ (1 of 1 - PCV)Pneumococcal Vaccine: 50+ (1 of 1 - PCV) [facility]: 80-94-2387Nuisibovo for malignant neoplasm of lungLung Cancer ScreeningUnUniversity Hospitals Ahuja Medical CenterStart: 98-55-0926LWFJOZDO VACCINE (1 of 2)SHINGRIX VACCINE (1 of 2)[facility]: 06-36-2525Tzhrcb Vaccines (1 of 2)Zoster Vaccines (1 of 2)[facility] Start: 60-91-3244TDIPQBCNZ (FIT-DNA)COLOGUARD (FIT-DNA)[facility]: 54-05-9003ZtaiqoeudbqLLGJFIZMGSIGslgbzyks ClinicStart: 47-82-3348BOBTDCOAVN CANCER SCREENINGCOLORECTAL CANCER SCREENINGOhioHealth Riverside Methodist Hospitaltart: 49-10-4575HU COLONOGRAPHYCT COLONOGRAPHYOhioHealth Riverside Methodist Hospitaltart: 96-19-4713VUUPH OCCULT BLOOD FECAL OCCULT BLOODOhioHealth Riverside Methodist Hospitaltart: 42-70-1506Pxnnttql specific antigen measurementProstate Cancer Screening DiscussionOhioHealth Riverside Methodist Hospitaltart: 11-25-2007 Screening for malignant neoplasm of colonOhioHealth Riverside Methodist Hospitaltart: 11-25-2007 SIGMOIDOSCOPYSIGMOIDOSCOPYOhioHealth Riverside Methodist Hospitaltart: 63-65-2283Opvvb panelLipid ScreeningOhioHealth Riverside Methodist Hospitaltart: 61-89-6742IKRVP SCREENLIPID SCREENOhioHealth Riverside Methodist Hospitaltart: 06-78-3320Xtpuijjww A Vaccines (1 of 2 - Risk 2-dose series) Hepatitis A Vaccines (1 of 2 - Risk 2-dose series)[facility]: 73-67-5301Vxqgsxpblrfb vaccinationPneumococcal Vaccine (1 of 2 - PCV)[facility]: 23-34-8245Yvppe microalbumin profileDTAP,TDAP,TD (1 - Tdap)[facility]: 13-88-7062Cwfspec Screening Anxiety ScreeningOhioHealth Riverside Methodist Hospitaltart: 09-90-8388Jdpozlxqlx ScreeningDepression ScreeningOhio State East Hospitalrt: 58-31-4385Qsczrhno mellitus screeningDiabetes ScreeningSumma Health [facility]: 86-25-0573FVODKPZTQ C SCREENING HEPATITIS C SCREENINGOhioHealth Riverside Methodist Hospitaltart: 85-55-6258Uurpeuasp C screening Hepatitis C ScreeningSumma Health [facility] Campus: 52-00-1383UCG SCREENINGHIV SCREENINGOhioHealth Riverside Methodist Hospitaltart: 43-90-3424MBT screeningHIV ScreeningOhio State East Hospitalrt: 95-03-4730Gltapvawcjkx Vaccine: Pediatrics (0 to 5 Years) and At-Risk Patients (6 to 64 Years) (1 of 2 - PCV)Pneumococcal Vaccine: Pediatrics (0 to 5 Years) and At-Risk Patients (6 to 64 Years) (1 of 2 - PCV)[facility]: 46-96-4242PBC Vaccines (1 of 1 - Standard series)MMR Vaccines (1 of 1 - Standard series)[facility]: 33-31-2857Nfexhj wellness visitWelcome to Medicare Visit [facility]: 98-01-0176BXB screeningHIV Screening [facility]: 93-40-3244Bmeel panelLipid Panel [facility]: 88-12-9327Hixrxisel for malignant neoplasm of colonNOUniversity of Missouri Children's HospitalStart: 33-40-9820Hvbjbzdgv for osteoporosisBone Density ScanUnTriHealth: 25-00-2773Myvbaj Adult PhysicalYearly Adult PhysicalGrand [facility] Joint Township District Memorial HospitalAnkle brachial pressure indexTrumbull Memorial HospitalBacteria identified in Cerebral spinal fluid by CultureCSF CULT + STAIN Microbiology Routine NPH (normal pressure hydrocephalus) ([facility]) Ordered: 09/13/2022[facility] Work Phone: Comment on above:Ordered: 09/13/2022acteria identified in Unspecified specimen by Aerobe cultureTrumbull Memorial HospitalBacteria identified in Unspecified specimen by Anaerobe cultureTrumbull Memorial Hospital End: 60-79-8963Seeyy metabolic 2000 panel - Serum or PlasmaBasic metabolic panel Lab Routine Morning draw (Lab) for 3 Occurrences starting 04/10/2024 until , 1 completedGrand Lake Joint Township District Memorial Hospital Work Phone: Comment on above:Morning draw (Lab) for 3 Occurrences starting 04/10/2024 until 04/12/2024, 1 completed End: 66-37-9318SWN panel - Blood by Automated countCBC Lab Routine Morning draw (Lab) for 3 Occurrences starting 04/10/2024 until 04/12/2024, 1 completed [facility] Work Phone: Comment on above:Morning draw (Lab) for 3 Occurrences starting 04/10/2024 until 04/12/2024, 1 completedCell count panel - Cerebral spinal fluidCSF CELL COUNT Lab Routine NPH (normal pressure hydrocephalus) ([facility]) Ordered: 09/13/2022[facility] Work Phone: Comment on above:Ordered: 09/13/2022ell count, cerebrospinal fluidTrumbull Memorial HospitalComprehensive metabolic 2000 panel - Serum or PlasmaTrumbull Memorial HospitalComprehensive metabolic 2000 panel - Serum or PlasmaTrumbull Memorial HospitalComprehensive metabolic 2000 panel - Serum or PlasmaTrumbull Memorial Hospital End: 69-27-9762Tgpjonkztg Pulse oximetry, In Phase 1Continuous Pulse oximetry, In Phase 1 Respiratory Care Routine Continuous until discontinued starting 04/09/2024[facility] Service Area Work Phone: Comment on above:Continuous until discontinued starting 04/09/2024Enolase.neuron specific [Mass/volume] in Serum or Plasma by ImmunoassayTrumbull Memorial HospitalFungus identified in Unspecified specimen by CultureTrumbull Memorial HospitalGlucose [Mass/volume] in Cerebral spinal fluidTrumbull Memorial HospitalGlucose [Mass/volume] in Serum or PlasmaPOCT Glucose Point of Care Testing - Docked Device Routine As needed (Lab) until discontinued starting 04/09/2024[facility] Service Area Work Phone: comment on above:As needed (Lab) until discontinued starting 04/09/2024 End: 68-13-0629Wzvyileys spirometry InstructIncentive spirometry Instruct Respiratory Care Routine Once for 1 Occurrences starting 04/09/2024 until 04/09/2024[facility] Work Phone: Comment on above:Once for 1 Occurrences starting 04/09/2024 until 04/09/2024IR LP FOR DRAINAGE (PRESSURE)IR LP FOR DRAINAGE (PRESSURE) Radiology Routine NPH (normal pressure hydrocephalus) (HCC) [facility] Work Phone: Comment on above:Ordered: 09/13/2022 Meningitis+Encephalitis pathogens DNA and RNA panel - Cerebral spinal fluid by JER with non-probe detectionTrumbull Memorial Hospital End: 58-04-0097Wwk brain brain stem w/o w/contrast materialMRI BRAIN WO/W IVCON Radiology Routine 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HCC) 1 Occurrences starting 09/20/[address] [facility] Work Phone: Comment on above:1 Occurrences starting 09/20/2022 until 10/20/2023atient EducationDoctors Hospital Ctr Work Phone: Patient referralDoctors Hospital Ctr Work Phone: Protein [Mass/volume] in Cerebral spinal fluid [facility] End: 50-35-3862Mrfjwrzk Catheter RemovalUrethral Catheter Removal Procedures Routine Once for 1 Occurrences starting 04/09/2024 until 04/09/2024[facility] Work Phone: Comment on above:Once for 1 Occurrences starting 04/09/2024 until 04/09/2024Virus identified in Unspecified specimen by Culture [facility] End: 44-63-3550YH Cervical spine 6 ViewsLOVELACE [facility] Service Area Work Phone: comment on above:Once for 1 Occurrences starting 02/13/2024 until 02/13/2024XR Chest 2 ViewsXR chest 2 views Imaging Routine Cervical radiculopathy Senile osteoporosis 02/13/2024 11:10 AM [facility] Work Phone: [facility] Immunizations Immunization DateImmunizationNotesCare SahsgmplMidbxous18-07-1528AIKDR-89 Vaccine Pfizer - Documentation Purposes OnlyBrett Kuns Other [facility]07-15-2021COVID-19 Vaccine Pfizer - Documentation Purposes OnlyBrett Kuns Other [facility]08-08-2016KENALOG - 10 mgBrett Kuns Other [facility] Other 08292318-79-5065Uqkhmfu per 15 mgBrett Kuns Other [facility] Other 09671739-92-3363glzkhuc toxoid, reduced diphtheria toxoid, and acellular pertussis vaccine, adsorbedBrett Kuns Other [facility] Other Payers DatePayer CategoryPayerPolicy [id number] 2024Medicare [id number] [id number] Care (Private)[facility] 1.2.840.508730.1.13.647.2.7.9.057068.978547.86790-98-6377Qdqnevf Health [id number] 2.16.840.9.729065.93438370-02-6936Sxmntui Health InsuranceCOSHOCTON [facility] CHOICE PLUS [employer]WORK GENERIC [id number] 2021-Present [phone] [address] [place] [address] [id number] [id number]5 2019MedicaidCARESOURCE MEDICAID [facility] MEDICAID [id number] 2019-Present [phone] [address] [place] [address] [id number] 1.2.840.263610.1.13.159.2.7.3.605149.315 2019Medicaid1.2.840.272855.1.13.159.2.7.3.692677.71776-00-5486Egysihd Health Insurance1.2.840.334037.1.13.159.2.7.3.620215.80550-58-4186Jympalk [id number]0-6678 [id number] 2.16.840.0.351423.23923554-23-5959Vaqspkx15732055 2.16.840.1.384531.3.579.2.83324-77-1907Wmfwtyz91987838 2.16.840.1.289803.3.579.2.70115-27-7384Wexoiiv59508100 2.16840.1.243329.3.579.2.[id number] 2.16.840.1.778747.3.579.2.532615-29-1892Bzjutek347372680 2.16840.1.137189.3.579.2.930979-90-1899Tvhqwcd199055978 2.16840.1.161527.3.579.2.505503-43-6139Nwwvyol36946707 2.840.1.608266.3.579.2.6500 [id number] 2.16840.1.210892.3.579.2.745425-86-5488Wffhprg77923766 2.16840.1.570133.3.579.2.864816-44-2947Pmalcot51043962 2.16840.1.334259.3.579.2.090591-10-3691Htvhgjk36657866 2.16840.1.517590.3.579.2.467650-70-7327Dpwfxut87687170 2.16840.1.207313.3.579.2.890024-56-7181Poslmne98097773 2.16840.1.739471.3.579.2.446276-40-6440Fpdeast31882929 2.16840.1.486824.3.579.2.796596-80-3957Xlvldlp01292633 2.16.840.1.456848.3.579.2.009370-31-3382Gojttqv41562790 2.16.840.1.748821.3.579.2.946692-76-2094Dyxpgnl12066461 2.16.840.1.235085.3.579.2.828218-75-6947Iiylclc498747120 2.16.840.1.186412.3.579.2.095519-47-9778Skbculr947684267 2.16.840.1.448150.3.579.2.829750-20-9687Hvjbtkr523078271 2.16.840.1.821591.3.579.2.408391-28-1701Drsamyp69909087 2.16.840.1.294835.3.579.2.930144-71-8246Ysrjgpz06836605 2.16.840.1.701074.3.579.2.433547-45-2504Oqnohld71852524 2.16.840.1.630934.3.579.2.670334-65-8716Mleyvzr46865261 2.16.840.1.522524.3.579.2.359229-60-9824Offmqzb46864319 2.16.840.1.852268.3.579.2.517088-90-8370Raivate3882962 2.16.840.1.477044.3.579.2.563116-33-9251Mzgheos7450430 2.16.840.1.148512.3.579.2.898128-73-4708Wuquewa1544258 2.16.840.1.472291.3.579.2.922010-48-0958Bodkmdk5276552 2.16.840.1.178555.3.579.2.946644-38-8336Tlltbgr7068131 2..840.1.313672.3.579.2.649962-11-5332Uerfsjj839358549 2..840.1.350145.3.579.2.64717-59-0286Ndswqpl064956159 2.0.1.702036.3.579.2.93288-07-9048Tfkgdmr843611102 2.0.1.740640.3.579.2.48496-54-3098Kvhpflq045027726 2..1.593891.3.579.2.34625-42-8302Amhztdj926761275 2..1.670021.3.579.2.91323-16-5297Olaawir727406721 2..1.226023.3.579.2.25250-03-9308Ekawhxe224989514 2.0.1.906867.3.579.2.196Private Health [id number] 2lm565h6-2044-69ln-jyvm-98lip3[id number] g04r298a-hom9-0w37-y8j3-r6i8p65z9472Edujhsb60990563 2.840.1.998355.3.579.2.609Oxnooob09909317 2.840.1.976131.3.579.2.531 Vjcynoz57155838 2.840.1.399191.3.579.2.468Xdlxjrv49310774 2.840.1.844722.3.579.2.132Xyomatk47051316 2.840.1.475025.3.579.2.531 Mmlnefa55367155 2.840.1.681065.3.579.2.544Syzlaic30803298 2.16.840.1.410103.3.579.2.924Ywhjocu15714568 2.16.840.1.391771.3.579.2.531 Qnfxdob22592382 2.16.840.1.115742.3.579.2.531 Social History DateTypeDetailFacilityStart: 04-29-2018 End: 33-24-0729Xzpjkax smoking status NHISSmoker (finding)[facility]: 59-82-6878Lfo [facility] At [facility]: 10-70-0087Pmrwqei smoking status NHISEx-smokerOhioHealth Riverside Methodist Hospitaltart: 06-18-1973 History of tobacco useCigarette SmokerOhioHealth Riverside Methodist Hospitaltart: 10-16-2019 End: 80-90-6856Ipxfuygwpr smoked current (pack per day) - Reported1.5Cmartins ferry hospital ClinicStart: 10-16-2019 End: 14-80-7334Yuyyebs use and exposureSmokeless tobacco non-userOhioHealth Riverside Methodist Hospitaltart: 10-14-2020 End: 22-16-2522Sqmjjfi intakeEx-drinker (finding)[facility]: 77-44-0580Ztedrkx SDOH Alcohol Commentquit 2002[facility]: 10-16-2019 Tobacco Commentquit smoking 01/2019[facility]: 29-47-2529Sxj Assigned At [facility] HospitalNot on fileOhioHealth Riverside Methodist Hospitaltart: 10-03-2021 End: 86-08-3215Caucwsyk to SARS-CoV-2 (event)Not sureOhioHealth Riverside Methodist Hospitaltart: 07-03-2023 End: 08-85-8736Vsd [facility]igned At [facility] EnterpriseStart: 03-10-2022 End: 38-04-7717Yafvzuhx to SARS-CoV-2 (event)Unable to assessWilson [address] Hospital Work Phone: Start: 12-28-2022 End: 82-60-3948Grifo SmokerSTEWARD HEALTH CARE SYSTEM EnterpriseStart: 37-08-8836Ivnlzee Comment6-10 cigarettes/dayNOMS HealthcareStart: 20-83-7348Ellcxy identityIdentifies as male gender (finding)[facility] HealthcareStart: 50-59-5185Bdzuco orientationHeterosexual (finding)[facility] HealthcareTobacco smoking status NHISTobacco smoking consumption unknownGrand [facility] Work Phone: Start: 10-05-2023 End: 71-32-5083Cmdfsrzer beverage intakeLifetime non-drinker (finding)[facility] Work Phone: Start: 03-53-2621Qjrmc Depression Screening Assessment 2C[facility] ClinicHow often to you have a drink containing alcohol?Never [facility] HospitalIn the past 12 months, was there a time when you were not able to pay the mortgage or rent on time?NoGrand Lake Joint Township District Memorial Hospital Work Phone: Start: 04-28-2024 End: 06-08-9049IdfVjoy (finding)[facility] HospitalNEGATED: Highlighted rowStart: NINFHistory of tobacco usePassive smokerUnUniversity Hospitals Ahuja [facility] Center Work Phone: Medical Equipment Procedure CodeEquipment CodeEquipment Original TextEquipment IdentifierDates Angiogram, lower extremity, leftMultiple peripheral artery stent, bare-metal ()[id number] FDAStart: 67-67-2361Ovugvevly, Triad Lordotic 6 X 11 X 14 - [id number] - [id number]: 04-09-2024 Allograft, Triad Lordotic 6 X 11 X 14 - [id number] - [id number]: 20-53-9487Iuvoy, Acp, 1.6v, 2 Level, 34mm - [id number]: 97-41-8031Kqkee, Acp, Self Drill, 3.5 X 17mm, Variable - [id number] Start: .5 X 19mm [id number]: 70-52-9838Vyumjqe on above: Description: per bill only jdr 04/10 Goals DatePatient GoalDesired Activity/StatePersonal health goal Functional Status BkkoZpzvvtlxglTmtcezVirdonzf32-41-8456Tnhyjmo Health Questionnaire 2 item (PHQ- 2) [Reported][facility] Work Phone: [phone]) 956-58780722095-55-2853BGS-2 quick depression assessment panel [Reported.PHQ][facility] Work Phone: Clinical Notes 11-03-2008 to 03-24-2025 Note Date & BibxRcjdTlajfbqb02-06-2153 NoteNeurosurgery Consult Chief Complaint: Neck and shoulder pain. History of Present Illness: Shantel Melendez is a 64 y.o. male who presents in kind referral from [facility] for the management to discuss placement [...] He had been evaluated by neurosurgery at [facility] and had been found to [...] spinal cord stimulation by Dr. Ramsey using [employer] hardware. This resulted in a very substantial [...] and Plavix after a prior PCTA. His glass smoother had furnished clearance for him to be [...] Resource Strain: Low Risk (04/09/2024) Received from [facility] Overall Financial Resource Strain (CARDIA) Difficulty of Paying Living Expenses: Not hard at all Food Insecurity: Not on file Transportation Needs: No Transportation Needs (04/09/2024) Received from [facility] PRAPARE - Transportation Lack of Transportation [...] Housing Stability: Low Risk (04/09/2024) Received from [facility] Housing Stability Vital Sign Unable to [...] higher function appears intact. 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 documented in this [facility]09-04-2025 Evaluation note* Author Shilpi Lantigua [facility] 2024 5:18pmSooner if needed, the ER if concerns,The above note written by Shilpi Lantigua LPN acting as human recorder, note dictated by Dr. Griselda Krause [facility] Work Phone: 1(787) 588-463309-04-2025 Evaluation note* Author Shilpi Lantigua [facility] 2024 5:18pmSooner if needed, the ER if concerns,The above note written by Shilpi Lantigua LPN acting as human recorder, note dictated by Dr. Griselda Krause Author Curtis Covarrubias [facility] 2024 1:58pmThe above note written by YOBANI Stein acting as human recorder, note dictated by Dr.Brett Krause. [facility] Work Phone: 1(898) 601-664309-04-2025 Evaluation note* Author Shilpi Lantigua [facility] 2024 4:18pmSooner if needed, the ER if concerns,The above note written by Shilpi Lantigua LPN acting as human recorder, note dictated by Dr. Griselda Krause Author Curtis Covarrubias [facility] 2024 12:58pmThe above note written by YOBANI Stein acting as human recorder, note dictated by Dr.Brett Krause. [facility] Work Phone: 1([phone]) 589-749208-20-2025 History of Present illness Narrative* Oziel Cadena [...] to alleviate the pain. documented in this encounterSalem Memorial District [id number] Evaluation note* Diagnosis Onset Date Resolution Status Admit Date Colon polyps acuteJuly 2024 3:14pmDyspepsiaacuteJuly 2024 3:14pmGERD (gastroesophageal reflux disease)acuteJuly 2024 3:14pmAnxiety and depressionacuteSept2024 10:28amBurning sensationacuteSept2024 10:28amColon polypsacuteSept2024 10:28amHyperlipidemiaacute [place] 2024 10:28amMedicare annual wellness visit, initialacuteSept2024 10:28amNicotine dependence with current useacutept2024 10:28amPAD (peripheral artery disease)acuteSept2024 10:28amScreening for prostate canceracuteSept2024 10:28am [facility] Work Phone: 1([phone]) 728-160707-24-2025 History of Present illness Narrative* QUENTIN Vail [...] INFLAMED SEBORRHEIC KERATOSIS Left Wrist - Anterior Tribbey and brown stuck on verrucous scaly papule [...] limited to risks of scarring, darker or rrt pigmentary changes, recurrence, incomplete removal and infection. [...] limited to risks of scarring, darker or rrt pigmentary changes, recurrence, incomplete removal and infection. 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 documented in this [facility]06-04-2025 Evaluation note* Author [facility] 20[facility] 2:36pmSooner if needed, the ER if concerns,The above note written by Shilpi Lantigua LPN acting as human recorder, note dictated by Dr. Griselda Krause [facility] Work Phone: 1(145) 159-970805-28-2025 History of Present illness Narrative* Oziel Cadena [...] ezetimibe (ZETIA) 10 mg, Oral, Daily HYDROcodone-acetaminophen (Palo Verde) 5-325 MG tablet take 1 tablet orally [...] Depression: Not at risk (11/05/2024) Received from [facility] PHQ-2 PHQ-2 score: 2 REVIEW OF [...] Ana Luisa's absent. Ankle clonus absent. Coordination Owwxqe-fa-uepc, rapid alternating movements and rjfv-as-bgsr normal bilaterally without dysmetria. Gait Normal casual, [...] the injections if needed. documented in this encounterSalem Memorial District HospitalWxidsadkne20-45-2369 NoteHNO ID: [id number] Author: RACQUEL COLE MD Service: ? Author Type: Physician Type: Progress Notes Filed: 11/07/2024 11:09 Note Text: NAME: Shantel Melendez CLINIC NO.: [id number] DATE OF SERVICE: November 07, 2024 (Curtis) Some elements in this clinic note that are critical to medical decision making have been carefully reviewed and included from a prior clinic note dated: November 02, 2023 (Curtis) Referring Provider: Griselda Krause, DO Additional Clinicians involved in Shantel Melendez's care: Dr Kimberly Nichole ENT, Dr. 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 10/05/2021 - MRI Brain: [facility] There is T2 and T2 flair hyperintense [...] microvascular ischemic change. Brainst (more content not included)...[facility]05-19-2025 History of Present illness Narrative* [...] PATIENT PRESENTS WITH AN IMPLANTABLE OR ATTACHED DIETARY WORKER: No RADIOLOGY DEPARTMENT: CT; Exam(s) Completed: Chest and Neck PERIPHERAL IV DATA: Site assessment: Clean,Dry and Intact, Site disposition Discontinued SIGNED BY: RT Craig(R) November 03, 2024 8:32 AM documented [facility] NoteHNO ID: [id number] Author: CURTIS DA SILVA RN Service: ? [...] Melendez DATE: November 03, 2024 TIME: 8:13 [facility]05-19-2025 NoteHNO ID: [id number] Author: SALLY DOYLE RT(R) Service: ? Author [...] PATIENT PRESENTS WITH AN IMPLANTABLE OR ATTACHED DIETARY WORKER: No RADIOLOGY DEPARTMENT: CT; Exam(s) Completed: Chest and Neck PERIPHERAL IV DATA: Site assessment: Clean,Dry and Intact, Site disposition Discontinued SIGNED BY: Sally Doyle, RT(R) November 03, 2024 8:32 [facility]05-19-2025 Telephone encounter Note* Telephone Encounter - Curtis Da Silva RN - 11/03/2024 7:49 AM EDT Please sign pended labs for 1 year f/u-will draw with CT today Thank You! Curtis Da Silva RN [facility]05-19-2025 Miscellaneous Notes* Telephone Encounter - Curtis Da Silva RN - 11/03/2024 7:49 AM EDT Please sign pended labs for 1 year f/u-will draw with CT today Thank You! Curtis Da Silva RN documented in this [facility]04-28-2025 History of Present illness Narrative* Doretha Harirs MD - 10/13/2024 9:00 AM EDT Shantel [...] assess the C7 screw. Doretha Harris MD Silk Screen Layout Drafter of Neurosurgery [facility] Sp[facility] Neuroscience ICU Office: [phone] [1] Past Surgical History: Procedure Laterality Date [...] 60 capsule, Rfl: 0 documented in this [facility] Work Phone: 1(176) 571-302104-21-2025 [facility]iology [facility] Main Reading [address] [place] [address] CT Scan Report Signed Patient: Shantel Melendez MR#: [id number] : 1960 Acct:[id number] Age/Sex: 63 / M ADM Date: 5 Loc: ER Room: Type: [facility] ER Attending Dr: Copies to: Manisha [...] Dorothy Eubanks M.D.10/06/2024 4:08 PM Dictation Location: [place] [address] Transcribed By: [facility] 10/06/24 1608 Dictated By: Dorothy Eubanks MD 10/06/24 1556 Signed By: 10/06/24 1605 [facility] Work Phone: 1([phone]) 725-326604-21-2025 Radiology Diagnostic study [facility] Main Reading [address] [place] [address] CT Scan Report Signed Patient: Shantel Melendez MR#: [id number] : 1960 Acct:[id number] Age/Sex: 63 / M ADM Date: 5 Loc: ER Room: Type: [facility] ER Attending Dr: Copies to: Manisha [...] Dorothy Eubanks M.D.10/06/2024 3:56 PM Dictation Location: [place] [address] Transcribed By: [facility] 10/06/24 1556 Dictated By: Dorothy Eubanks MD 10/06/24 1551 Signed By: 10/06/24 1556 [facility] Work Phone: 1([phone]) [phone] Evaluation note* Diagnosis Onset Date Resolution Status Admit Date Current every day smoker acuteMarch 2024 8:53amPAD (peripheral artery disease)acuteSeptember 11, 2024 8:53amRight leg claudicationacuteSeptember 11, 2024 8:53am [facility] Work Phone: 1(257) 565-774703-27-2025 Evaluation note* Diagnosis Onset Date Resolution Status Admit Date Current every day smoker acuteMarch 2024 8:53amPAD (peripheral artery disease)acuteSeptember 11, 2024 8:53amRight leg claudicationacuteAugch 2024 8:53amCardiac arrhythmiaacute May 2024 9:37amEssential hypertensionacuteMa2024 9:37am HyperlipidemiaacuteMa2024 9:37amGlioma of braindeletedMa2024 9:37amPAD (peripheral artery disease)deletedOctober 27, 2024 9:37am [facility] Work Phone: 1([phone]) 198-871003-27-2025 Evaluation note* Diagnosis Onset Date Resolution Status [...] habitsacuteJune 2024 1:57pmDiarrheaacuteJune 2024 1:57pmDysphagiaacuteJune 2024 1:57pm [facility] Work Phone: [phone]) 279-548103-27-2025 Evaluation note* Diagnosis Onset Date Resolution Status [...] RSV (respiratory syncytial virus infection)acuteJune 2024 2:26pm [facility] Work Phone: [phone]) [phone] History of Present illness Narrative* Oziel Cadena [...] ezetimibe (ZETIA) 10 mg, Oral, Daily HYDROcodone-acetaminophen ([place]) 5-325 MG tablet take 1 tablet orally [...] Depression: Not at risk (06/30/2024) Received from [facility] PHQ-2 Patient Health Questionnaire-2 Score: [...] Ana Luisa's absent. Ankle clonus absent. Coordination Zimmnw-xw-xhuw, rapid alternating movements and usjh-ez-kqlp normal bilaterally without dysmetria. Gait Normal casual, [...] the injections if needed. documented in this encounterSalem Memorial District [id number] History of Present illness Narrative* Oziel Cadena [...] ezetimibe (ZETIA) 10 mg, Oral, Daily HYDROcodone-acetaminophen ([place]) 5-325 MG tablet take 1 tablet orally [...] Depression: Not at risk (06/30/2024) Received from [facility] PHQ-2 Patient Health Questionnaire-2 Score: [...] the injections if needed. documented in this encounterSalem Memorial District HospitalWygkescqrf99-07-6697 Evaluation note* Author Shilpi Lantigua [facility] HospitalAuthoredJanuary 2024 4:44pmSooner if needed, the ER if concerns,The above note written by Shilpi Lantigua LPN acting as human recorder, note dictated by Dr. Griselda Krause [facility] Work Phone: 1([phone]) 622-680101-15-2025 History of Present illness Narrative* Oziel Cadena [...] ezetimibe (ZETIA) 10 mg, Oral, Daily HYDROcodone-acetaminophen ([place]) 5-325 MG tablet take 1 tablet orally [...] Depression: Not at risk (06/30/2024) Received from [facility] PHQ-2 Patient Health Questionnaire-2 Score: [...] injections at that time. documented in this encounterSalem Memorial District [id number] History of Present illness Narrative* Doretha Harris [...] another set of XR. Doretha Harris MD Silk Screen Layout Drafter of Neurosurgery [facility] Sp[facility] Neuroscience ICU Office: [phone] Scribe Attestation By signing my name below, I, Shira Sen, Scribe, attest that this documentation has been preparedunder the direction and in the presence of Doretha Harris MD. documented in this [facility] Work Phone: 1(180) 859-701612-04-2024 History of Present illness Narrative* Oziel Cadena [...] ezetimibe (ZETIA) 10 mg, Oral, Daily HYDROcodone-acetaminophen ([place]) 5-325 MG tablet take 1 tablet orally [...] Depression: Not at risk (04/09/2024) Received from [facility] PHQ-2 Patient Health Questionnaire-2 Score: [...] his injections if needed. documented in this encounterSalem Memorial District [id number] History of Present illness Narrative* Solomon Narayanan PA-C - 04/30/2024 1:00 PM EST Images from the original note were not included. [facility] Department of Neurological Surgery Post Operative Patient [...] CAD (coronary artery disease) Peripheral vascular disease ([facility]) Past Medical History: Diagnosis Date Anxiety Cataract s/p excision of left Cervical radiculopathy Chronic pain disorder Coronary artery disease Depression Dysphagia thin liquids Hypertension NPH (normal pressure hydrocephalus) (Multi) PAD (peripheral artery disease) ([facility]) s/p stent (05/2023) on ASA 81mg Peripheral vascular disease ([facility]) Pontine lesion watchful waiting Pulmonary nodule Skin [...] directly. Sincerely, RICH Hernandez PA-C Associate Physician Mental Hygiene Consultant, Neurosurgery Clinical Silk Screen Layout Drafter [facility] [employer] [place] [address] [place] [address] documented in this [facility] Work Phone: 1(129) 801-708011-11-2024 Evaluation note* Diagnosis Onset Date Resolution Status Admit Date Cardiac arrhythmia acuteNovember 2023 9:39amEssential hypertensionacuteNovember 2023 9:39amHyperlipidemiaacuteNovember 2023 9:39amGlioma of braindeleted April 28, 2024 9:39amPAD (peripheral artery disease)deletedNovember 2023 9:39amHyperlipidemiaacuteJanuary 2024 9:23amS/P cervical discectomy acuteJanuary 2024 9:23amScreening for prostate canceracuteJanuary 2024 9:23am [facility] Work Phone: [phone]) [phone] Hospital course Narrative* Aaron Gallo PA-C - [...] HYDROcodone-acetaminophen 5-325 mg tablet; Commonly known as: Pal[place] Verde tiZANidine 4 mg capsule; Commonly known as: Zanaflex Outpatient Follow-Up Future Appointments Date Time Provider Department Center 04/30/2024 1:00 PM Solomon Narayanan PA-C [id number] [facility] 05/02/2024 9:00 AM [facility] SCC PET MRI [facility] [place] 05/02/2024 10:00 AM Helder Jack MD [id number] [facility] 06/30/2024 9:00 AM Doretha Harris MD [id number] [place] Aaron Gallo PA-C documented in this [facility] Work Phone: [phone]) [phone] History of Present illness Narrative* Nikole Lezama, PharmD - 04/10/2024 12:11 PM EDT Pharmacy Medication History Review Shantel Melendez is a 63 y.o. male admitted for Cervical radiculopathy. Pharmacy reviewed the patient's xhzlj-nl-gnqmuadri medications and allergies for accuracy. 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 Prior to Admission Medications Prescriptions Last Dose Informant HYDROcodone-acetaminophen (P[place]de) 5-325 mg tablet Self Sig: Take 1.5 [...] Report Patient interview (good historian-required some prompting) [facility] medical note 01/29 Additional Comments: none Nikole Lezama PharmD Transitions of Care Pharmacist 04/10/24 Secure Chat preferred If no response call [phone] or [employer] Rec * Tori Johnson OT - 04/10/2024 11:57 AM EDT Occupational Therapy Evaluation Patient Name: Shantel Melendez Today's Date: 04/10/2024 Room: [address] [place] [address] Time Calculation Start Time: 1019 Stop Time: [...] bars in shower Prior Function: Level of [place]: Independent with ADLs and functional transfers, Independent with homemaking with ambulation ADL Assistance: Independent Homemaking Assistance: Independent Ambulatory Assistance: Independent 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, 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 [...] LUE LUE: Within Functional Limits Outcome Measures: [facility] Daily Activity Putting on and taking [...] 11:57 AM TORI JOHNSON OT Rehab Office: [phone] * Tia Caceres, PT - 04/10/2024 10:33 AM EDT Physical Therapy Physical Therapy Evaluation Patient Name: Shantel Melendez Department: [place] [address] Room: [address] [place] [address] Today's Date: 04/10/2024 Time Calculation Start Time: [...] Prior Function Per Pt/Caregiver Report Level of [place]: (independent ambulation in/outdoors no device, independent stairclimbing as needed, no falls) ADL Assistance: Independent Homemaking Assistance: Independent Ambulatory Assistance: Independent 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 documented in this encounterGrand Lake [facility] Hospital Work Phone: [phone]) 545-302710-23-2024 Plan of care note* Care Plan - [...] goals for the shift include pain management. [facility] Work Phone: [phone]) [phone] Miscellaneous Notes* Care Plan - Elizabeth Esposito [...] (B) Operative Note Date: 04/09/2024 OR Location: [facility] OR Name: Shantel Melendez, : 1960, Age: 63 y.o., , Sex: male Diagnosis Pre-op Diagnosis * Cervical radiculopathy [M54.12] * Senile osteoporosis [M81.0] Post-op Diagnosis * Cervical radiculopathy [M54.12] * Senile osteoporosis [M81.0] Procedures Fusion Spine Anterior Cervical and Discectomy C5-6, C6-7 - [place] ARTHRD ANT INTERBODY DECOMPRESS CERVICAL BELW C2 [place] ARTHRD ANT INTERBODY DECOMPRESS CERVICAL BELW C2 [] [place] ARTHRD ANT INTERDY CERVCL BELW C2 EA ADDL NTRSPC [02042] [place] ALLOGRAFT FOR SPINE SURGERY ONLY STRUCTURAL [77200] [place] MICROSURG TQS REQ USE OPERATING MICROSCOPE [56075] Surgeons * Doretha Harris - Primary Resident/Fellow/Other Mental Hygiene Consultant: Surgeons and Role: * Chicho Bryan MD [...] 85 mL Specimen: No specimens collected Staff: Manager Of Network: Derrell Scrub Person: Beverly Scrub Person: Shaina Drains and/or Catheters: Closed/Suction Drain 1 Neck Bulb 10 Fr. (Active) Urethral Catheter Double-lumen;Non-latex 16 Fr. (Active) Tourniquet Times: Implants: Implants Type Name Action Serial No. Spinal Hardware SCREW, DISTRACTION, 14 MM - [id number] Used, Not Implanted Spinal Hardware ALLOGRAFT, TRIAD LORDOTIC 6 X 11 X 14 - [id number] - [id number] Implanted [id number] Spinal Hardware ALLOGRAFT, TRIAD LORDOTIC 6 X 11 X 14 - [id number] - [id number] Implanted [id number] Spinal Hardware PLATE, ACP, 1.6V, 2 LEVEL, 34MM - [id number] Implanted Spinal Hardware SCREW, ACP, SELF DRILL, 3.5 X 17MM, VARIABLE - [id number] Implanted 3.5 X 19MM SCREW Implanted Findings: [...] then placed our self-retaining retractor in and Buena pins in and placed the disc space [...] 04/09/2024 4:50 PM EDT documented in this encounterGrand Lake [facility] Hospital Work Phone: [phone]) 719-934910-23-2024 Nurse Note* Shantelle Pacheco RN - 04/09/2024 7:03 PM EDT Patient transferred from PACU to [id number] via stretcher in stable condition. Patient oriented to room, bed, and call light. Skin assessment witnessed by Brianda Dowling RN. Will continue to monitor. [facility]10-23-2024 Nurse Note* Shantelle Pacheco RN - 04/09/2024 7:03 PM EDT Patient transferred from PACU to [id number] via stretcher in stable condition. Patient oriented to room, bed, and call light. Skin assessment witnessed by Brianda Dowling RN. Will continue to monitor. documented in this encounterGrand Lake Joint [facility] Hospital Work Phone: [phone]) 972-217610-23-2024 Hospital Note* Hospital Course - Aaron Gallo PA-C - 04/09/2024 5:04 PM EDT 63M h/p HTN, CAD, PAD s/p stent on ASA81, pontine glioma, tongue cancer p/w LUE radiculopathy, 04/09 s/p C5-7 ACDF 04/10 PT/OT DC recs no needs, post operative xray shows good position, Drain removed [facility] Work Phone: [phone]) 502-383610-23-2024 Note* Op Note - Chicho Bryan MD - 04/09/2024 2:30 PM EDT Fusion Spine Anterior Cervical and Discectomy C5-6, C6-7 (B) Operative Note Date: 04/09/2024 OR Location: [facility] OR Name: Shantel Melendez, : 1960, Age: 63 y.o., , Sex: male Diagnosis Pre-op Diagnosis * Cervical radiculopathy [M54.12] * Senile osteoporosis [M81.0] Post-op Diagnosis * Cervical radiculopathy [M54.12] * Senile osteoporosis [M81.0] Procedures Fusion Spine Anterior Cervical and Discectomy C5-6, C6-7 63493 - [place] ARTHRD ANT INTERBODY DECOMPRESS CERVICAL BELW C2 [place] ARTHRD ANT INTERBODY DECOMPRESS CERVICAL BELW C2 [93266] [place] ARTHRD ANT INTERDY CERVCL BELW C2 EA ADDL NTRSPC [13430] [place] ALLOGRAFT FOR SPINE SURGERY ONLY STRUCTURAL [89743] [place] MICROSURG TQS REQ USE OPERATING MICROSCOPE [03936] Surgeons * Doretha Harris - Primary Resident/Fellow/Other Mental Hygiene Consultant: Surgeons and Role: * Chicho Bryan MD [...] 85 mL Specimen: No specimens collected Staff: Manager Of Network: Derrell Scrub Person: Beverly Scrub Person: Shaina Drains and/or Catheters: Closed/Suction Drain 1 Neck Bulb 10 Fr. (Active) Urethral Catheter Double-lumen;Non-latex 16 Fr. (Active) Tourniquet Times: Implants: Implants Type Name Action Serial No. Spinal Hardware SCREW, DISTRACTION, 14 MM - [id number] Used, Not Implanted Spinal Hardware ALLOGRAFT, TRIAD LORDOTIC 6 X 11 X 14 - [id number] - [id number] Implanted [id number] Spinal Hardware ALLOGRAFT, TRIAD LORDOTIC 6 X 11 X 14 - [id number] - [id number] Implanted [id number] Spinal Hardware PLATE, ACP, 1.6V, 2 LEVEL, 34MM - [id number] Implanted Spinal Hardware SCREW, ACP, SELF DRILL, 3.5 X 17MM, VARIABLE - [id number] Implanted 3.5 X 19MM SCREW Implanted Findings: [...] then placed our self-retaining retractor in and Buena pins in and placed the disc space [...] Harris MD at 04/09/2024 4:50 PM EDT [facility] Work Phone: 1([phone]) [phone] Attending History and physical note* Rojas Edwards MD - 04/09/2024 12:22 PM EDT H&P reviewed. The patient was examined and there are no changes to the H&P. Cosigned by Doretha Harris MD at 04/09/2024 12:53 PM EDT Source Note - Rick MckinneyBAILEY-SEAMLESS HOSIERY KNITTER - 03/26/2024 10:30 AM EDT Images from [...] pressure hydrocephalus) (Multi) PAD (peripheral artery disease) ([facility]) s/p stent (05/2023) on ASA 81mg Peripheral vascular disease ([facility]) Pontine lesion watchful waiting Pulmonary nodule Skin [...] Row Pre-Admission Testing from 02/11/2024 in [facility] Questionnaire Series Submission from 02/06/2024 in [facility] with Generic Provider Laura Can you take [...] or washing dishes? 2.7 filed at 02/11/2024 04585.7 filed at 02/06/2024 0032 Can you do [...] Row Pre-Admission Testing from 02/11/2024 in [facility] DVT Score 11 filed at 02/11/2024 1506 BMI 30 or less filed at 02/11/2024 1506 RETIRED: Current Status Major surgery planned, lasting over 3 hours filed at 02/11/2024 1506 RETIRED: History Prior major surgery, Previous malignancy filed at 02/11/2024 1506 RETIRED: Age 60-75 years filed at 02/11/2024 1506 Modified Frailty Index Flowsheet Row Pre-Admission Testing from 02/11/2024 in [facility] Non-independent functional status (problems with dressing, bathing, personal grooming, or cooking) 0 filed at 02/11/2024 1505 History of diabetes mellitus 0 filed at 02/11/2024 1505 History of COPD 0 filed at 02/11/2024 1505 History of CHF No filed at 02/11/2024 1505 History of [place] 0 filed at 02/11/2024 1505 History of [...] Row Pre-Admission Testing from 02/11/2024 in [facility] High-Risk Surgery (Intraperitoneal, Intrathoracic,Suprainguinal vascular) 0 filed at 02/11/2024 1505 History of ischemic heart disease (History of [place], History of positive exercuse test, Current chest [...] Row Pre-Admission Testing from 02/11/2024 in [facility] Smoking status 0 [...] Row Pre-Admission Testing from 03/26/2024 in [facility] Pre-Admission Testing from 02/11/2024 in [facility] Do you snore [...] Yellow, Dark-Yellow Appearance, Urine Clear Clear Specific [place], Urine 1.007 1.005 - 1.035 pH, Urine [...] Rate 63 BPM Atrial Rate 63 BPM [place] Interval 268 ms QRS Duration 74 ms QT Interval 406 ms QTC Calculation(Bazett) 415 ms P [place] 58 degrees R [place] -3 degrees T [place] 18 degrees QRS Count 10 beats Q [...] given to patient. Neurosurgery: Doretha Harris MD [facility] 01/03/24 seen for cervical radiculopathy. Neurosurgery: Jose Cruz Khan MD [facility] 11/05/23- [facility] seen for cervical stenosis of spine. Oncology: Helder Jack MD [facility] 12/13/23 seen for incidental pontine lesion- appears to be low-grade. HEENT/Airway The patient has history of selective right neck dissection (II-V) and bilateral base of tongue/linguial tonsillar excision on 01/30/[address] 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 Currently with limited neck extension. No documented or reported history of airway difficulty. HemOnc: Racquel Cole MD [facility] 11/02/23-[facility] seen for head and neck cancer. [...] Cardiology Evaluation Cardiology: Lilliam Cason MD - [facility] (see media tab for last office note) [...] understanding ofpreoperative instructions. After Visit Summary given. [facility] Work Phone: 1(814) 617-449210-23-2024 History and physical note* Rojas Edwards MD [...] pressure hydrocephalus) (Multi) PAD (peripheral artery disease) ([facility]) s/p stent (05/2023) on ASA 81mg Peripheral vascular disease ([facility]) Pontine lesion watchful waiting Pulmonary [...] Row Pre-Admission Testing from 02/11/2024 in [facility] Questionnaire Series Submission from 02/06/2024 in [facility] with Generic Provider Laura Can you take [...] or washing dishes? 2.7 filed at 02/11/2024 29162.7 filed at 02/06/2024 0032 Can you do [...] Row Pre-Admission Testing from 02/11/2024 in [facility] DVT Score 11 filed at 02/11/2024 1506 BMI 30 or less filed at 02/11/2024 1506 RETIRED: Current Status Major surgery planned, lasting over 3 hours filed at 02/11/2024 1506 RETIRED: History Prior major surgery, Previous malignancy filed at 02/11/2024 1506 RETIRED: Age 60-75 years filed at 02/11/2024 1506 Modified Frailty Index Flowsheet Row Pre-Admission Testing from 02/11/2024 in [facility] Non-independent functional status (problems with dressing, bathing, personal grooming, or cooking) 0 filed at 02/11/2024 1505 History of diabetes mellitus 0 filed at 02/11/2024 1505 History of COPD 0 filed at 02/11/2024 1505 History of CHF No filed at 02/11/2024 1505 History of [place] 0 filed at 02/11/2024 1505 History of [...] Row Pre-Admission Testing from 02/11/2024 in [facility] High-Risk Surgery (Intraperitoneal, Intrathoracic,Suprainguinal vascular) 0 filed at 02/11/2024 1505 History of ischemic heart disease (History of [place], History of positive exercuse test, Current chest [...] Row Pre-Admission Testing from 02/11/2024 in [facility] Smoking status 0 [...] Row Pre-Admission Testing from 03/26/2024 in [facility] Pre-Admission Testing from 02/11/2024 in [facility] Do you snore [...] Yellow, Dark-Yellow Appearance, Urine Clear Clear Specific [place], Urine 1.007 1.005 - 1.035 pH, Urine [...] Rate 63 BPM Atrial Rate 63 BPM [place] Interval 268 ms QRS Duration 74 ms QT Interval 406 ms QTC Calculation(Bazett) 415 ms P [place] 58 degrees R [place] -3 degrees T [place] 18 degrees QRS Count 10 beats Q [...] given to patient. Neurosurgery: Doretha Harris MD [facility] 01/03/24 seen for cervical radiculopathy. Neurosurgery: Jose Cruz Khan MD [facility] 11/05/23- [facility] seen for cervical stenosis of spine. Oncology: Helder Jack MD [facility] 12/13/23 seen for incidental pontine lesion- appears to be low-grade. HEENT/Airway The patient has history of selective right neck dissection (II-V) and bilateral base of tongue/linguial tonsillar excision on 01/30/[address] 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 Currently with limited neck extension. No documented or reported history of airway difficulty. HemOnc: Racquel Cole MD [facility] 11/02/23-[facility] seen for head and neck cancer. [...] Cardiology Evaluation Cardiology: Lilliam Cason MD - [facility] (see media tab for last office note) [...] After Visit Summary given. documented in this encounterGrand Lake [facility] Work Phone: 1(524) 744-272610-15-2024 Evaluation note* Author [facility] 2023 10:01amThe above note written by Nida Humphreys LPN, acting as human recorder, note dictated by Dr. Griselda Krause. [facility] Work Phone: 1(463) 856-253508-15-2024 Evaluation note* Author [facility] 2023 10:40amThe above note written by Nida Humphreys LPN, acting as human recorder, note dictated by Dr. Griselda Krause. Author [facility] 2023 11:01amThe above note written by Nida Humphreys LPN, acting as human recorder, note dictated by Dr. Griselda Krause. [facility] Work Phone: 1(508) 438-824707-18-2024 History of Present illness Narrative* Doretha Harris [...] bone stimulator after surgery. Doretha Harris MD [employer] Layout Drafter of Neurosurgery [facility] Neuroscience ICU Office: [phone] Scribe Attestation By signing my name below, aPrisa Wright , Erlinda attest that this documentation has been prepared under the direction and in the presence of MD Shirley. documented in this [facility] Work Phone: 1(722) 856-659106-27-2024 History of Present illness Narrative* Helder Jack MD - 12/13/2023 10:00 AM EDT Patient ID: Shantel Melendez is a 63 y.o. male. Referring Physician: Shimon Heaton PA-C [id number] [place] [address] Primary Care Provider: Griselda Krause DO Subjective History of Present Ilness: 62 y.o. presents in neurosurgical consultation from [facility] for cervical stenosis.C/o neck pain and LUE pain, numbness and weakness down to hand for 2 years. SawNeurosurgeon at and has had 2 spinal taps with some improvement. Went to [facility] to be assessed for hydrocephal;us and was told he does not have hydrocephalus. He saw Dr. Lara at the [facility]. Also pain behind left eye. [...] issues. 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 INTERVAL HISTORY (12/13/2023): Since the last visit, he continues to have severe neck pain, which isslowly getting worse, along with some muffled hearing on the left side. He tried going back to parttime work, but the activity made the neck pain much more severe. He saw a Neurosurgeon at [facility] about the cervical stenosis, but he was unwilling to consider surgery for the neck due to the pontine lesion. He has now been to see a Neurosurgery PA (Solomon Narayanan) at [facility] about the neck, who thought surgical decompression was reasonable. He will see the Neurosurgeon soon to discuss the possible surgery. He has had some Botox injections into the neck and associated muscles, and has some steroid injections due next week. He tried some test shots for an Ablation procedure, but they were too painful. The ROS is as per documentation in the [facility]. Objective BSA: There is no height or [...] Nate Benavidez 12/13/2023 9:38 AM Dictation workstation: [id number] Impression 1. Abnormal increased T2 signal in [...] will undergo a new MRI brain at [facility]. -I spent > 40 minutes in face to face consultation to review and discuss the above; 50% of whichor more was dedicated to counseling. Helder Jack MD documented in this encounterGrand Lake [facility] Work Phone: 1(889) 822-667706-27-2024 Instructions* Patient Instructions* Alondra Escamilla RN - 12/13/2023 10:00 AM EDT Your next appointment will be in 5 months. Please schedule your MRI prior to this visit. Please contact [phone] option 5 then option 2 with any questions or concerns. For any scheduling concerns please call [phone] option 1 documented in this encounterGrand Lake [facility] Work Phone: 1(287) 202-995506-26-2024 History of Present illness Narrative* Solomon Narayanan PA-C - 12/12/2023 1:00 PM EDT Images from the original note were not included. 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 Sincerely, RICH Hernandez PA-C Associate Physician Mental Hygiene Consultant, Neurosurgery Clinical [employer]k Screen Layout Drafter [facility] [employer] [place] [address] [place] [address] documented in this encounterGrand Lake Joint [facility] Hospital Work Phone: 1([phone]) 751-513705-17-2024 Instructions* Patient Instructions* Racquel Cole MD - 11/02/2023 10:13 AM EDT Scans and labs in 1 year RTC 1 week after documented in this encounterWilson [address] Hospital05-17-2024 History of Present illness Narrative* Racquel Cole MD - 11/02/2023 9:45 AM EDT Images from the original note were not included. NAME: Shantel Melendez NO.: [id number] DATE OF SERVICE: November 02, 2023 (Curtis) Some elements in this clinic note that are critical to medical decision making have been carefully reviewed and included from a prior clinic note dated: November 03, 2022 (Curtis). Referring Provider: Griselda Krause DO Additional Clinicians involved in Shantel Melendez's care: Dr Kimberly Nichole ENT, Dr. Ibarra [place] surgery [facility] DIAGNOSIS: Head and neck cancer ASSESSMENT: 62 [...] 1.8 mm of invasive disease (Stage I, [id number], HPV+ oropharyngeal SCC).resected T1 N1 base of [...] adenopathy is identified. 10/05/2021 - MRI Brain: [facility] There is T2 and T2 flair hyperintense signal predominantly to the right of midline in the jose but also involving the left anterior jsoe with extension to the right facial colliculus [...] respiratory bronchiolitis. 01/30/2019 - Neck dissection at [facility] Base of tongue did [...] 2020: Doing well, still smokes, works at [employer] Reviewed scans and there is no evidence [...] which included preparing to see the patient, [id number] patient care, completing clinical documentation, performing a medically appropriate examination, counseling and educating the patient/family/caregiver, ordering medications, tests, or p rocedures, independently interpreting results (not separately reported), communicating results to the patient/family/caregiver, and care coordination (not separately reported). Racquel Cole MD, CPE Hematology and Oncology Services Provided at: [place], [place] Scribe Attestation: This note was scribed [...] under my direction. CC: Griselda Krause, DO [address] [place] [phone] [address] NEW[place] ENT[address] Dr[address] Nichole ENT Dr. Ibarra [place] surgery [facility]. documented in this encounterWilson Street Hospital05-13-2024 Evaluation note* Author Shilpi Lantigua [facility] HospitalAuthoredMay 2023 10:32amSooner if needed, the ER if concerns,The above note written by Shilpi Lantigua LPN acting as human recorder, note dictated by Dr. Griselda Krause [facility] Work Phone: 1([phone]) 432-217205-10-2024 History of Present illness Narrative* Curtis Da [...] EDT Radiology Service Progress Note PATIENT NAME: Shatnel Melendez DATE OF SERVICE: October 26, 2023 [...] PATIENT PRESENTS WITH AN IMPLANTABLE OR ATTACHED DIETARY WORKER: No RADIOLOGY DEPARTMENT: CT; Exam(s) Completed: Chest and Neck PERIPHERAL IV DATA: Site assessment: Clean,Dry and Intact, Site disposition Discontinued SIGNED BY: RT Craig(R) October 26, 2023 10:07 AM documented in [address] encounterWilson [address] Hospital04-19-2024 History of Present illness Narrative* Helder [...] hydrocephalus. He saw Dr. Lara at the [facility]. Also pain behind left eye. [...] issues. 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 Helder Jack MD documented in this [facility] Work Phone: 1(439) 896-439504-19-2024 Instructions* Patient Instructions* Adriana Thomas RN - 10/05/2023 9:[address] Jack will present your case at Tumor Board next Sunday. Someone from the office will call you that day or about your plan. Please call us with any questions or concerns at [phone] opt. 5, opt. 2 For scheduling concerns please call [phone] option 1 documented in this encounterGrand Lake [facility] Work Phone: 1(933) 219-251002-28-2024 Evaluation note* Author Curtis Covarrubias [facility] 2023 5:19pmThe above note written by Sue Flood acting as human recorder, note dictated by Dr. Griselda Krause . [facility] Work Phone: [phone]) 112-198802-28-2024 Evaluation note* Author Curtis Covarrubias [facility] 2023 5:19pmThe above note written by Sue Flood acting as human recorder, note dictated by Dr. Griselda Krause . Author Shilpi Lantigua [facility] 2023 10:32amSooner if needed, the ER if concerns,The above note written by Shilpi Lantigua LPN acting as human recorder, note dictated by Dr. Griselda Krause [facility] Work Phone: [phone]) 989-689501-15-2024 Evaluation note* Encounter Date Diagnosis Assessment Notes [...] to continue to follow with them asscheduled. [facility] Other 12-14-2023 Evaluation note* Encounter Date Diagnosis Assessment Notes Treatment Notes Treatment Clinical Notes May, PAD (peripheral artery disease) (ICD-10 - I73.9) Patient recently had angioplasty for occlusion of right iliac artery that was discovered by glass smoother. He has been doing well since the [...] work before I provide him that consent. [facility] Other 12-13-2023 Evaluation note* Encounter Date Diagnosis [...] I will see him in 3 months. [facility] Other 11-28-2023 Evaluation note* Encounter Date Diagnosis [...] in 3 months Apr,Lightheadedness (ICD-10 - R42) [facility] Other [id number] [facility]Tr[facility]-16-[facility] Evaluation note* Encounter Date Diagnosis Assessment [...] questions were addressed and consent was obtained. [facility] Other 11-14-2023 Evaluation note* Encounter Date Diagnosis [...] M54.2) The patient is now following with [facility]. He states he has an upcoming cervical epidural scheduled. The patient remains out of work on fpc disability , he voices interest in returning to work soon. Apr,AD (peripheral artery disease) (ICD-10 - I73.9) Arterial studies ordered by glass smoother indicating peripheral artery disease. The patient does report lower extremity pain and heaviness and I recommend it would be beneficial to consult with a vascular specialist. The patient is in agreement, therefore a referral was initiated. A CTA has been ordered by neurologist , appointment pending [facility] scheduling. Apr,Hyperlipidemia (ICD-10 - E78.5) Blood work [...] vocies understanding. We will continue to monitor. [facility] Other 10-26-2023 Evaluation note* Encounter Date Diagnosis Assessment Notes Treatment Notes Treatment Clinical Notes Mar, Claudication (ICD-10 - I73.9) [facility] Other 10-25-2023 Evaluation note* Encounter Date Diagnosis [...] in 4 weeks Mar,Lightheadedness (ICD-10 - R42) [facility] Other 10-24-2023 Evaluation note* Encounter Date Diagnosis Assessment Notes Treatment Notes Treatment Clinical Notes Mar, Elevated blood pressure reading (ICD-10 - R03.0) [facility] Other 09-28-2023 Evaluation note* Encounter Date Diagnosis [...] of infection. Feb,urning sensation (ICD-10 - R20.8) [facility] Other 09-21-2023 Evaluation note* Encounter Date Diagnosis [...] right index finger. We will continueto monitor. [facility] Other 07-13-2023 Hospital Discharge instructions Diet Plan/Instructions [...] * Discharge Physician: : Lima Joseph MD ([id number]) - Anesthesiology, Pain Management * Discharge Physician Phone: : [phone] [facility] [address], [place] [phone] Special Plan/Instructions for Discharge from 12/27/2022 10:26 AM: * Special Instructions : Spoke to patient Wound Care Instruction for Discharge from 12/27/2022 10:26 AM: * Special Instructions : Spoke to patient [employer] 06-20-2023 Evaluation note* Encounter Date Diagnosis Assessment [...] sent to the office to be completed. [facility] Other 05-12-2023 History of Present illness Narrative* [...] radiation safety can be found usingthis link: [email or web address] SIGNATURE: RT Craig(Neisha) PATIENT NAME: Shantel Melendez DATE: October 27, 2022 TIME: 11:55 AM PAGER/CONTACT #: documented in this encounterWilson [address] Hospital04-07-2023 History of Present illness Narrative* TABITHA [...] 2022 TIME: 2:39 PM documented in this encounterWilson [address] Hospital04-05-2023 Miscellaneous Notes* Telephone Encounter - Akash [...] return call ? Yes documented in this encounterWilson [address] Hospital03-29-2023 Instructions* Patient Instructions* Kelly Perez PA-C [...] perform on same dariusz. documented in this encounterWilson Street Hospital03-29-2023 Nurse Note* Antonia Tripathi MA - 09/13/2022 10:55 AM EDT Additional intake questions: Has the patient had fever, nausea, vomiting, diarrhea, constipation, fatigue for > 1 week? Yes, diarrhea ( 3 times in last 24 hours), fatigue, and Provider Notified Does the patient have a decreased appetite? No Does patient want to see a Jewelry Repairer? No (yes to any of above [...] By: Antonia Tripathi MA documented in this encounterWilson Street Hospital03-29-2023 History of Present illness Narrative* Kelly Perez PA-C - 09/13/2022 10:44 AM EDT This note was created using [employer] The[employer]. Subjective Shantel Melendez is a 61 year [...] or pronator drift. Coordination: Romberg sign negative. Nmkxlb-Oodo-Htqgzz Test normal. Gait: Gait abnormal. Comments: Slightly [...] which included preparing to see the patient, suro-sc-dslc patient care, completing clinical documentation, obtaining and/or reviewing separately obtained history, performing a medically appropriate examination, counseling and educating the pat ient/family/caregiver, ordering medications, tests, or procedures, communicating with other HCPs (not separately reported), independently interpreting results (not separately reported), communicatingresults to the patient/family/caregiver, and care coordination (not separately reported). documented in this encounterWilson [address] Hospital03-16-2023 Evaluation note* Encounter Date Diagnosis Assessment [...] her mid twenties. He will see the WELL CONTROL INSTRUCTOR at Dr. Cadena's office today, and will see the [facility] 09/13/22. I do feel pt needs his FMLA extended until 12/16/22. I encouraged him to continue to follow with these doctors, and we will continue to monitor. [facility] Other 02-14-2023 Evaluation note* Encounter Date Diagnosis [...] pain medication and fever reducers as needed. 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 [facility] Other 10-30-2022 Hospital Discharge instructions Additional Instructions [...] week to see how you are doing. [facility] Work Phone: [phone]) 255-338210-10-2022 Miscellaneous Notes* Telephone Encounter - Racquel Cole MD - 03/27/2022 3:54 PM EDT Good with me * Telephone Encounter - Asya Reynolds RN - 03/27/2022 2:17 PM EDT Informed patient of your recommendations. He states that he is seeing neurology in [place] and they do not feel he needs [...] about an appointment with a [facility] neurosurgeon. He has not seen you since 10/2021. He states st that time you did not see the need for a neurosurgeon as his tumor wastoo small. Now he all of the sudden has an appointment with this F neurosurgeon and is confused. Can you review and advise as to this appointment with the neurosurgeon. Asya Reynolds RN documented in this encounterWilson [address] Hospital09-29-2022 Miscellaneous Notes* Telephone Encounter - Pamela Nascimento APRN.CNP - 03/16/2022 2:51 PM EDT Time Frame: Next available Provider: Intra-axial neurosurgeon & Neuro-Oncology (same day) Referring: Racquel Cole MD Please instruct patient to hand carry/ upload images prior to appt Dx: Low grade glioma Patient: Shantel Melendez Address: Shantel Melendez [id number] [place] [address] Per Triage: Shantel Melendez is a 61 year old male that requests evaluation of previously diagnosed possible low grade glioma. Patient expectations: Second opinion Tumor Specifics: Location: brain Previous Evaluations: MRI w/wo contrast (10/05/21): 10/05/2021 MRI Brain [facility] Impression: 1. There is T2 and T2 [...] [C71.9 (ICD-10-CM)] Order Questions Question Answer [facility] Brain Tumor [facility] Epic access? Yes documented in this encounterWilson [address] Hospital09-29-2022 Evaluation note* Encounter Date Diagnosis Assessment [...] see if this gives him some relief [facility] Other 08-15-2022 Evaluation note* Encounter Date Diagnosis [...] did hold off on any pain medications. [facility] Other 07-11-2022 Evaluation note* Encounter Date Diagnosis [...] blood pressure was elevated upon check in. [facility] Other 06-20-2022 Evaluation note* Encounter Date Diagnosis [...] rule out other causes of his symptoms. [facility] Other 05-24-2022 Evaluation note* Encounter Date Diagnosis [...] will complete the necessary medical disability forms. 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 Narayan, and he is now referring on to Dr. Jonny Vigil at [facility] for 2[facility] opinion. Reviewed consult note [...] this medication. Will continue to follow up [facility] Other 05-12-2022 History of Present illness Narrative* Racquel Cole MD - 10/27/2021 5:05 PM EDT Images from the original note were not included. NAME: Shantel Melendez CLINIC NO.: [id number] DATE OF SERVICE: October 27, 2021 Some elements in this clinic note that are critical to medical decision making have been carefully reviewed and included from a prior clinic note dated: October 13, 2021 Referring Provider: Griselda Krause, Additional Clinicians involved in Shantelkal Melendez's care: Dr Kimberly Nichole ENT, Dr. 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. Nichole ENT Dr. Ibarra [place] surgery [facility]. [facility]* Encounter Date Diagnosis Assessment [...] him on to see Dr. Jonny Vigil. [facility] Other 05-04-2022 Miscellaneous Notes* Telephone Encounter - Haily Med Issa - 10/19/2021 12:56 PM EDT Called [facility] Neuro Office spoke with Leslee. She states they have received patient records/referral and have patient scheduled to see Dr Narayan on 10/24. Haily Jovel Pss * Telephone Encounter - Asya Gramajo [facility] - 10/18/2021 10:34 AM EDT Records faxed. * Telephone Encounter - Haily Jovel [facility] - 10/13/2021 12:24 PM EDT Noelle: Information ready for you. Haily Jovel Pss * Telephone Encounter - Antonia Mcguire - 10/13/2021 10:33 AM EDT Referral to neurosurgery - Dr. Narayan or [facility] Noelle/Layo: Can you please refer patient and follow up? Thanks! Antonia Mcguire documented in [address] [facility] [address] [facility]04[facility] History of Present illness Narrative* Racquel Cole MD - 10/13/2021 10:19 AM EDT Images from the original note were not included. NAME: Shantel Melendez [facility] NO.: [id number] DATE OF SERVICE: October 13, 2021 Some elements in this clinic note that are critical to medical decision making have been carefully reviewed and included from a prior clinic note dated:October 14, 2020 Referring Provider: Griselda Krause, DO Additional Clinicians involved in Shantle Melendez's care: Dr Kimberly Nichole ENT, Dr. 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 Reviewed scans and there is no evidence [...] adenopathy is identified. 4. 10/05/2021 MRI Brain [facility] Impression: 1. There is T2 and T2 [...] and neck (HCC) Racquel Cole MD, CPE [place], [place] CC: Griselda Krause, DO [address] [phone] [address] Harris [facility] ENT. Dr. Nichole ENT Dr. Ibarra [place] surgery [facility]. documented in [facility]04-21-2022 Miscellaneous Notes* Telephone Encounter - Racquel [...] steps. Asya Kumar RN documented in this encounterWilson [address] [facility]04-21-2022 History of Present illness Narrative* Marilyn [...] 06, 2021 8:07 AM documented in [address] [facility]04-04-2022 Evaluation note* Encounter Date Diagnosis Assessment [...] to continue with monitoring diet and exercise. [facility] Other 03-28-2022 Evaluation note* Encounter Date Diagnosis Assessment Notes Treatment Notes Treatment Clinical Notes Aug, Anxiety and depression (ICD-10 - F41.8) [facility] Other 01-13-2022 Evaluation note* Encounter Date Diagnosis Assessment Notes Treatment Notes Treatment Clinical Notes Jun, Sinusitis (ICD-10 - J32.9) I did prescribe the above medications and work note provided. [facility] Other 01-12-2022 Evaluation note* Encounter Date Diagnosis Assessment Notes Treatment Notes Treatment Clinical Notes Jun, Sinus pressure (ICD-10 - J34.89) Patient advised of negative results. Encouraged him to call if symtpoms persist or worsen, he verbalized understanding. [facility] Other 11-02-2021 Evaluation note* Encounter Date Diagnosis Assessment Notes Treatment Notes Treatment Clinical Notes Apr, Sinus congestion (ICD-10 - R09.8 1) [facility] Other 10-28-2021 Evaluation note* Encounter Date Diagnosis [...] Encouraged patient to continue with their efforts. [facility] Other 12-01-2016 History general Narrative - Reported* Type Description Date Medical History anxiety and depression Medical Kxkngrc48/2016 EGD and colonoscopyMedical HistoryLabs 10/26/16Medical HistoryPSA (0.510) 10/26/16Medical HistoryNo Stress Test as of 11/09/16Medical Athcbsi15/28/19 PSA (0.6)Medical Cuxwmik81/2021 Stress test ,echocardiogram, 24 hr. holterMedical Loegcqc69/29/21 PSA ( 0.4)Medical Usmodbx25/2021 Covid + Surgical Historyskin cancer on noseSurgical HistoryEGD and Ubsyszxpdnp96/2016 Surgical HistorytonsillectomySurgical HistoryHead and neck HPV /2019 Hospitalization Historysee above [facility] Other 12-01-2016 History general Narrative - Reported* Type Description Date Medical History anxiety and depression Medical Pwinipo71/2016 EGD and colonoscopyMedical HistoryLabs 10/26/16Medical HistoryPSA (0.510) 10/26/16Medical HistoryNo Stress Test as of 11/09/16Medical Gaehjlz26/28/19 PSA (0.6)Medical Vgrmfhr47/2021 Stress test ,echocardiogram, 24 hr. holterMedical Japcqzj89/29/21 PSA ( 0.4)Medical Cvvanhz82/2021 Covid + Surgical Historyskin cancer on noseSurgical HistoryEGD and Ucirruxwaha43/2016 Surgical HistorytonsillectomySurgical HistoryHead and neck HPV xmuohwj43/[address] [facility]Hospitalization History see above [facility] Other 12-01-2016 History general Narrative - Reported* Type Description Date Medical History anxiety and depression Medical Zirsred71/2016 EGD and colonoscopyMedical HistoryLabs 10/26/16Medical HistoryPSA (0.510) 10/26/16Medical HistoryNo Stress Test as of 11/09/16Medical Xfqihtt82/28/19 PSA (0.6)Medical Hubkixx45/2021 Stress test ,echocardiogram, 24 hr. holterMedical Aqitaap98/29/21 PSA ( 0.4)Medical Eeflruo70/2021 Covid + Medical Xplmsfj2505/26/2022 Brain MRISurgical Historyskin cancer on noseSurgical HistoryEGD and Siwgjavtfgm42/2016Surgical HistorytonsillectomySurgical History Head and neck HPV uilyjam58/2019Surgical HistorySp[facility] 11/07/2021Hospitalization Historysee above [facility] Other 12-01-2016 History general Narrative - Reported* Type Description Date Medical History anxiety and depression Medical Tiyiufn87/2016 EGD and colonoscopyMedical HistoryLabs 10/26/16Medical HistoryPSA (0.510) 10/26/16Medical HistoryNo Stress Test as of 11/09/16Medical Paaqurx87/28/19 PSA (0.6)Medical Iiecbut62/2021 Stress test ,echocardiogram, 24 hr. holterMedical Bajmpxt84/29/21 PSA ( 0.4)Medical Vzzmzgx34/2021 Covid + Medical Ogfnnzm6705/26/2022 Brain MRISurgical Historyskin cancer on nose (squamous cell)Surgical HistoryEGD and Iopridojrjw24/2016Surgical Historytonsillectomy Surgical HistoryHead and neck surgery for oral cancer/lymph node dissection 01/2019Surgical HistorySp[facility]/07/2021Hospitalization Historysee above [facility] Other 12-01-2016 History general Narrative - Reported* Type Description Date Medical History anxiety and depression Medical Ptkvvdu02/2016 EGD and colonoscopyMedical HistoryLabs 10/26/16Medical HistoryPSA (0.510) 10/26/16Medical HistoryNo Stress Test as of 11/09/16Medical Hxyyjbv60/28/19 PSA (0.6)Medical Zelxhcf75/2021 Stress test ,echocardiogram, 24 hr. holterMedical Jbrjtud07/29/21 PSA ( 0.4)Medical Nfravtd13/2021 Covid + Medical Ejabkaq8205/26/2022 Brain MRISurgical Historyskin cancer on nose (squamous cell)Surgical HistoryEGD and Kjzfyzxqwzv22/2016Surgical Historytonsillectomy Surgical HistoryHead and neck surgery for oral cancer/lymph node dissection 01/2019Surgical HistorySp[facility]11/07/2021urgical HistoryLP at [facility]08/2022Hospitalization Historysee above [facility] Other 12-01-2016 History general Narrative - Reported* Type Description Date Medical History anxiety and depression Medical Xghmlqz37/2016 EGD and colonoscopyMedical HistoryLabs 10/26/16Medical HistoryPSA (0.510) 10/26/16Medical HistoryNo Stress Test as of 11/09/16Medical Lhojrfm92/28/19 PSA (0.6)Medical Ypkyjfz18/2021 Stress test ,echocardiogram, 24 hr. holterMedical Roivxap38/29/21 PSA ( 0.4)Medical Zzkjfqv82/2021 Covid + Medical Bpwvtgu5805/26/2022 Brain MRIMedical Qpfftyo80/2023 PADSurgical History skin cancer on nose (squamous cell)Surgical HistoryEGD and Difpqromlvp26/2016 Surgical HistorytonsillectomySurgical HistoryHead and neck surgery for oral cancer/lymph node gqinkxaxqt69/2019Surgical HistorySpinal tap [facility]11/07/2021urgical HistoryLP at [facility]08/2022Hospitalization Historysee above [facility] Other [phone] History general Narrative - Reported* Type Description Date Medical History anxiety and depression Medical Qzlkbnu19/2016 EGD and colonoscopyMedical HistoryLabs 10/26/16Medical HistoryPSA (0.510) 10/26/16Medical HistoryNo Stress Test as of 11/09/16Medical Keftqrx25/28/19 PSA (0.6)Medical Haahdse78/2021 Stress test ,echocardiogram, 24 hr. holterMedical Xljcxdd11/29/21 PSA ( 0.4)Medical Eoehqaz18/2021 Covid + Medical Djpuyzu0605/26/2022 Brain MRIMedical Sgwkakb33/2023 PADSurgical History skin cancer on nose (squamous cell)Surgical HistoryEGD and Acwxkdjqmdk23/2016 Surgical HistorytonsillectomySurgical HistoryHead and neck surgery for oral cancer/lymph node phzbxhyyjg83/2019Surgical HistorySpinal [facility]11/07/2021urgical HistoryLP at [facility]08/2022Surgical History angioplasty right iliac shvmea47/2023Hospitalization Historysee above [facility] Other 05-19-2009 History of Present illness Narrative* [...] saw Dr. Ba a neurologist in [facility]. * He describes his vision as seeing 1-1/2 . He describes this does not seem quite to but finding a time lab between moving his eyes and having the visual change. [facility] Work Phone: chief complaint+Reason for visit Narrative* Chief Complaint 2 month 2 month f/uReason for VisitCervical spondylosis History of COVID-19 Nicotine dependence with current use SCC (squamous cell carcinoma) Nicotine dependence with current use Osteoarthritis cervical spine [facility] Work Phone: Clinical Notes [facility] Evaluation + Plan note [facility] Evaluation noteNo Assessments Information Available [facility] Diagnosis Glioma of brain (HCC)- Primary Malignant neoplasm of brain, unspecified site Lung nodules Other nonspecific abnormal finding of lung field 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) Malignant neoplasm of head, face, and neck documented in this encounter [facility]* Diagnosis 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 Malignant neoplasm of head, face, and neck Lung nodules Other nonspecific abnormal finding of lung field Malignant neoplasm of head, face and neck (HCC) Malignant neoplasm of head, face, and neck documented in this encounter [facility] noteNo InformationNoresearch psychiatric center [employer] Other Evaluation noteNo assessment information available [facility] Work Phone: Evaluation note* Diagnosis Onset Date Resolution Status Migraine acute [facility] Work Phone: Evaluation note* Diagnosis NPH (normal pressure hydrocephalus) (HCC)- Primary Idiopathic normal pressure hydrocephalus (INPH) documented [facility] this encounter [facility]* Diagnosis 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HCC)- Primary NPH (normal pressure hydrocephalus) (HCC) Idiopathic normal pressure hydrocephalus (INPH) documented in this encounter [facility]* Diagnosis 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HCC) NPH (normal pressure hydrocephalus) (HCC) Idiopathic normal pressure hydrocephalus (INPH) documented in this encounter [facility]* Diagnosis Onset Date Resolution Status Anxiety and depression acuteEssential hypertensionacuteHyperlipidemiaacuteOsteoarthritis cervical spine acutePAD (peripheral artery disease)acute [facility] Work Phone: Evaluation note* Diagnosis 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 Griselda Krause. 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) Malignant neoplasm of head, face, and neck documented [facility] this encounter [facility]* Diagnosis Malignant neoplasm of head, face and neck (HCC) Malignant neoplasm of head, face, and neck Lung nodules Other nonspecific abnormal finding of lung field 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) Malignant neoplasm of head, face, and neck Localized swelling, mass or lump of neck Swelling, mass, or lump in head and neck documented [facility] this encounter [facility]* Diagnosis Cervical radiculopathy- Primary Brachial neuritis or radiculitis nos Cervical radiculopathy Brachial neuritis or radiculitis nos Senile osteoporosis Senile osteoporosis documented in this encounter [facility] Work Phone: Evaluation note* Diagnosis Cervical radiculopathy- Primary Brachial neuritis or radiculitis nos Status post cervical spinal fusion Arthrodesis status Acute postoperative pain Other acute postoperative pain Muscle spasms of neck documented in this encounter [facility] Work Phone: [...] Abnormality of gait documented in this encounter [facility] Work Phone: Evaluation note* 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 [facility] Work Phone: Evaluation note* 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 [facility] Work Phone: [phone] note* Diagnosis Cervical radiculopathy- Primary Brachial neuritis or radiculitis nos Senile osteoporosis documented in this encounter [facility] Work Phone: Evaluation note* Diagnosis Cervical radiculopathy Brachial neuritis or radiculitis nos Senile osteoporosis Cervical radiculopathy Brachial neuritis or radiculitis nos Senile osteoporosis Cervical radiculopathy Brachial neuritis or radiculitis nos Senile osteoporosis documented in this encounter [facility] Work Phone: [phone] note* Diagnosis Cervical radiculopathy Brachial neuritis or radiculitis nos Senile osteoporosis Cervical radiculopathy Brachial neuritis or radiculitis nos Cervical radiculopathy Brachial neuritis or radiculitis nos Senile osteoporosis documented in this encounter [facility] Work Phone: Evaluation note* Diagnosis Cervical radiculopathy Brachial neuritis or radiculitis nos Senile osteoporosis Cervical radiculopathy Brachial neuritis or radiculitis nos Cervical radiculopathy Brachial neuritis or radiculitis nos Senile osteoporosis documented in this encounter [facility] Work Phone: [phone] note* Diagnosis Status post cervical spinal fusion- Primary Arthrodesis status documented in this encounter [facility] Work Phone: Evaluation note* Diagnosis Nerve root and plexus disorder, unspecified- Primary [facility] Diagnosis Nerve root and plexus disorder, unspecified- Primary documented in this encounter [facility] HealthcareEvaluation [facility]* Diagnosis Nerve root and plexus disorder, unspecified- Primary documented in this encounter [facility] HealthcareEvaluation note* Diagnosis Status post cervical spinal fusion- Primary Arthrodesis status documented in this encounter [facility] Work Phone: Evaluation note* Diagnosis 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 Malignant neoplasm of head, face, and neck documented in this encounter [facility]* Diagnosis 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) Malignant neoplasm of head, face, and neck documented in this encounter [facility]* Diagnosis Nerve root and plexus disorder, unspecified- Primary Acute pain of left shoulder documented in this encounter [facility] HealthcareEvaluation note* Diagnosis Melanocytic nevus of trunk- Primary Benign neoplasm of skin of trunk, except scrotum Seborrheic keratosis Inflamed seborrheic keratosis Actinic keratosis Capillary angioma Nevus, non-neoplastic History of SCC (squamous cell carcinoma) of skin Personal history of other malignant neoplasm of skin documented in this encounter [facility] HealthcareEvaluation note* Diagnosis Nerve root and plexus disorder, unspecified- Primary Acute pain of left shoulder documented in this encounter [facility] HealthcareEvaluation note* Diagnosis Acute pain of right shoulder- Primary Nerve root and plexus disorder, unspecified Acute pain of left shoulder documented in this encounter [facility] HealthcareEvaluation note* Diagnosis Other nerve root and plexus disorders- Primary Acute pain of left shoulder Acute pain of right shoulder documented [facility] this encounter [facility] Dis[facility] Additional Instructions Obtain Elsy pot and perform nasal irrigations twice a dayLake County [facility] Work Phone: Hospital Discharge instructions Additional Instructions Please return to emergency department for any new or worrisome symptoms including any chest pain, shortness of breath, vomiting, fever. Take all antibiotics even if you start feeling better.[facility] Work Phone: Hospital Discharge instructions Additional Instructions Push fluids Zofran for nausea vomiting Follow-up with the GI specialist as discussed for possible colonoscopy Return here if any problems persist or worsen If you are able to collect a urine specimen take it to the lab.[facility] Work Phone: Remflj for referral (narrative)* Diagnostic Procedure Only (Routine) - ClosedSpecialtyDiagnoses / ProceduresReferred By Contact Referred To ContactCT IMAGING Diagnoses Malignant neoplasm of head, face and neck (HCC) Lung nodules 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) Localized swelling, mass or lump of neck Procedures CT CHEST W IVCON CAT SCAN OF CHEST CONTRAST Racquel Cole MD [address] [place] [address] [place] [address] Referral IDStatusReasonStart DateExpiration DateVisits RequestedVisits [id number] Auto-Generated Referral * Diagnostic Procedure Only (Routine) - ClosedSpecialtyDiagnoses / Procedures Referred By ContactReferred To ContactCT IMAGING Diagnoses Malignant neoplasm of head, face and neck (HCC) Lung nodules 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) Localized swelling, mass or lump of neck Procedures CT NECK SOFT TISSUE W IVCON CONTRAST CAT OF NECK TISSUE Racquel Cole MD [address] [place] [address] [place] [address] Referral IDStatusReasonStart DateExpiration DateVisits RequestedVisits [id number] Auto-Generated Referral [facility] HospitalReason for referral (narrative)No reason for referral information availableFlower Hospital Work Phone: Reutul for visit Narrative* Auth/CertSpecialty Diagnoses / ProceduresReferred By ContactReferred To Contact Diagnoses Cervical radiculopathy Senile osteoporosis Cervical radiculopathy [M54.12] Senile osteoporosis [M81.0] Procedures [place] ARTHRD ANT INTERBODY DECOMPRESS CERVICAL BELW C2 [place] ARTHRD ANT INTERBODY DECOMPRESS CERVICAL BELW C2 [place] ARTHRD ANT INTERDY CERVCL BELW C2 EA ADDL NTRSPC [place] ALLOGRAFT FOR SPINE SURGERY ONLY STRUCTURAL [place] MICROSURG TQS REQ USE OPERATING MICROSCOPE Fusion Spine Anterior Cervical and Discectomy C5-6, C6-7 Doretha Harris MD [address] [facility], [address] [place] [address] Phone: tel: fax: [facility] [place] [address] [place] [address] fax: Referral IDStatusReasonStart DateExpiration DateVisits RequestedVisits [id number] [facility] Work Phone: Reason for visit Narrative* Injection (Routine) - ClosedSpecialtyDiagnoses / ProceduresReferred By ContactReferred To Contact Neurology Diagnoses Acute pain of left shoulder Procedures [place] OFFICE/OUTPATIENT [facility] 60 MINUTES Oziel Cadena MD [address] [facility] [address] [place] [address] Phone: tel: fax: Oziel Cadena MD [address] [place] [address] Phone: tel: fax: Referral IDStatusReasonStart DateExpiration DateVisits RequestedVisits [id number] Perform Procedure / [facility] Summary Purpose [...] RecordedPatient RepresentativeExplanationLiving Will10/05/2023 9:39 AM Date ActivatedDate DmfavajkduvUgxynwxy22/23/2024 6:57 PMQuestionAnswerComments Plan of Care:* Code Status Discussion Completed Decision Maker:* Patient Date ActivatedDate AjrnqknjdqeXsxtvlhz60/23/2024 11:50 AM04/09/2024 6:57 PM QuestionAnswerCommentsPlan of Care:* Code Status Discussion Completed Decision Maker:* Patient Date ActivatedDate CarhqvsnlyeKlkknhlb58/23/2024 6:57 PMQuestionAnswerComments Plan of Care:* Code Status Discussion Completed Decision Maker:* Patient Date ActivatedDate MaprjutxmsiBxfddrbk68/23/2024 11:50 AM04/09/2024 6:57 PM QuestionAnswerCommentsPlan of Care:* [...] 2025 10:28am Nicotine dependence with current use [facility]2024 10:28am PAD (peripheral artery disease) [facility] 2024 10:28am Screening for prostate cancer February [...] 2025 10:28am Nicotine dependence with current use [facility]2024 10:28am PAD (peripheral artery disease) [facility] 2024 10:28am S/P cervical discectomy February 19, [...] 2025 10:28am Nicotine [place] with [place] [facility] [place] PAD (peripheral artery disease) [facility] [place] 2024 10:28am S/P cervical discectomy February 19 [...] brain (HCC) Procedures CONSULT TO NEUROSURGERY OFFICE/OUTPATIENT [facility] 60-74 MINUTES Racquel Cole MD [address] [place] [address] [place] [address] Referral IDStatusReasonStart DateExpiration DateVisits RequestedVisits [id number] PCP Requested Referral [id number] / ProceduresReferred By ContactReferred To ContactCT IMAGING Diagnoses Lung nodules Procedures CT CHEST W IVCON DIAGNOSTIC COMPUTED TOMOGRAPHY THORAX W/CONTRAST Racquel Cole MD [address] [place] [address] [place] [address] Ct Imaging Referral IDStatusReasonStart DateExpiration DateVisits RequestedVisits [id number] Review Auto-Generated Referral [id number] / ProceduresReferred By ContactReferred To ContactCT IMAGING Diagnoses Malignant neoplasm of head, face and neck (HCC) Procedures CT NECK SOFT TISSUE W IVCON CT SOFT TISSUE NECK W/CONTRAST MATERIAL Racquel Cole MD [address] [place] [address] [place] [address] Ct Imaging Referral IDStatusReasonStart DateExpiration DateVisits RequestedVisits [id number] Review Auto-Generated Referral Reason *FU 10/31 Evaluate and Treat Brainstem Lesion 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) Referral Organization [facility] uros[facility] Referring Provider First Name Sheng Referring Provider Last Name Wyatt Referring Provider Specialty Neurosurger y Referred Organization [facility] Referred Provider Jonny Vigil Referred Address [address] [address] [place],[address] Referred Provider Specialty Neurological Surgery Referral Priority Routine General Notes Linnea Alvarado M 022 02:09:54 PM >Received and fax referral today Reason consult and treat (p t is willing to see him in [place], if not then will see at [facility]) 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) Diagnosis 2 Cervical pain (neck) (M54.2) Diagnosis 3 Pressure in head (R5 1.9) Referral Organization [facility] [place] Referring Provider First Name Griselda Referring Provider Last Name Darling Referring Provider Specialty Family Prac henny Referred Organization [facility] Referred Provider Oziel Cadena Referred Address [address] [place],[address] Referral Priority Routine SpecialtyDiagnoses / ProceduresReferred By ContactReferred To ContactMR IMAGING Diagnoses 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HCC) Procedures MRI BRAIN WO/W IVCON MRI BRAIN BRAIN STEM W/O W/CONTRAST MATERIAL Kelly Perez PA-C [address] [place] [address] Mr Imaging Referral IDStatusReasonStart DateExpiration DateVisits RequestedVisits [id number] Auto-Generated Referral /[id number] IDStatusReasonStart DateExpiration DateVisits RequestedVisits [id number] Auto-Generated Referral / Reason pt requesting n ot Dr. Verma, but can see other providers from that group evaluate and treat tinnitus and balance issues Diagnosis 1 Tinnitus of both ear s (H93.13) Diagnosis 2 Balance disorder (R2 6.89) Referral Organization [facility] Cardiology Referring Provider First Name Lilliam Referring Provider Last Name Kamla Referring Provider Specialty Cardiovascu lar Disease Referred Organization [facility] Referred Provider Manuela Ballesteros Referred Address ,[place], [place],[address] Referred Provider Specialty Ear, Nose an d Throat Referral Priority Routine General Notes ClarenceYessica roman 12:40:36 PM >received today, pt has medicaid insurance, will send to Dr. Ballesteros, attachments made, waiting for notes to be locked Reason consult and treat Diagnosis 1 PAD (peripheral arnie ry disease) (I73.9) Referral Organization [facility] [place] Referring Provider First Name Griselda Referring Provider Last Name Darling Referring Provider Specialty Family Prac henny Referred Organization [facility] Referred Provider Filipe Hess Referred Address [address] [facility] [address],[place], [place],[address] Referred Provider Specialty Vascular Abdirahman yvon Referral Priority Routine General Notes Linnea Alvarado 023 11:58:24 AM >Received today and sent P2P SpecialtyDiagnoses / ProceduresReferred By ContactReferred To ContactCT IMAGING Diagnoses 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) Procedures CT CHEST W IVCON DIAGNOSTIC COMPUTED TOMOGRAPHY THORAX W/CONTRAST Racquel Cole MD [address] [place] [address] [place] [address] [place] [address] Referral IDStatusReasonStart DateExpiration DateVisits RequestedVisits [id number] Auto-Generated Referral [id number] / ProceduresReferred By ContactReferred To ContactCT IMAGING Diagnoses 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) Procedures CT NECK SOFT TISSUE W IVCON CT SOFT TISSUE NECK W/CONTRAST MATERIAL Racquel Cole MD [address] [place] [address] [address] [place] [id number] Ct Imaging [place] [address] Referral IDStatusReasonStart DateExpiration DateVisits RequestedVisits [id number] Auto-Generated Referral 1Referral IDStatusReasonStart DateExpiration DateVisits RequestedVisits [id number] Auto-Generated Referral 1Referral IDStatusReasonStart DateExpiration DateVisits RequestedVisits [id number] Auto-Generated Referral [id number] / ProceduresReferred By ContactReferred To ContactCT IMAGING Diagnoses Lung nodules Procedures CT CHEST W IVCON DIAGNOSTIC COMPUTED TOMOGRAPHY THORAX W/CONTRAST Racquel Cole MD [address] [place] [address] [place] [address] [place] [address] Referral IDStatusReasonStart DateExpiration DateVisits RequestedVisits [id number] Auto-Generated Referral /[id number] / ProceduresReferred By ContactReferred To ContactCT IMAGING Diagnoses Malignant neoplasm of head, face and neck (HCC) Procedures CT NECK SOFT TISSUE W IVCON CT SOFT TISSUE NECK W/CONTRAST MATERIAL Racquel Cole MD [address] [place] [address] Ct Imaging [facility] Referral IDStatusReasonStart DateExpiration DateVisits RequestedVisits [id number] Auto-Generated Referral /[id number] / ProceduresReferred By ContactReferred To ContactRadiology 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 [place] [address] [place] [id number] Referral IDStatusReasonStart DateExpiration DateVisits RequestedVisits [id number] Review Perform Procedure /[id number] / ProceduresReferred By ContactReferred To ContactRadiology 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 tumor perfusion protocol w and wo IV contrast Shimon Heaton PA-C [address] [place] [address] Referral IDStatusReasonStart DateExpiration DateVisits RequestedVisits [id number] Perform Procedure /[id number] / ProceduresReferred By ContactReferred To ContactRadiology Diagnoses Cervical radiculopathy Procedures XR cervical spine complete 6+ views Doretha Harris MD [address] [facility], [address] [address] Referral IDStatusReasonStwinn DateExpiration DateVisits RequestedVisits [id number] Perform Procedure /[id number] / ProceduresReferred By ContactReferred To ContactRadiology Diagnoses Senile osteoporosis Procedures XR DEXA bone density axial skeleton w VFA Doretha Harris MD [address] [facility], [address] [address] Referral IDStatusReasonStart DateExpiration DateVisits RequestedVisits [id number] Review Perform Procedure [id number] / ProceduresReferred By ContactReferred To Contact Diagnoses Cervical radiculopathy Senile osteoporosis Procedures ECG 12 lead Doretha Harris MD [address] [facility], [place] [phone] Referral IDStatusReasonStart DateExpiration DateVisits RequestedVisits [id number]/24/20247/24/[id number] / Procedures Referred By ContactReferred To ContactRadiology Diagnoses Cervical radiculopathy Procedures XR DEXA bone density Doretha Harris MD [address] [facility], [place] [phone] Referral IDStatusReasonStart DateExpiration DateVisits RequestedVisits [id number] Perform Procedure Chief Complaint Patient referred by [...] section and content) DATE CREATED AUTHOR 08/01/2019 [facility] DATE CREATED AUTHOR AUTHOR'S ORGANIZ ATION 11/05/2021 [facility] DATE CREATED AUTHOR AUTHOR'S ORGANIZ ATION 01/19/2022 [facility] [employer] DATE CREATED AUTHOR AUTHOR'S ORGANIZ ATION 10/02/2022 [facility] DATE CREATED AUTHOR AUTHOR'S ORGANIZ ATION 12/25/2022 [facility] DATE CREATED AUTHOR AUTHOR'S ORGANIZ ATION 08/03/2023 [facility] DATE CREATED AUTHOR AUTHOR'S ORGANIZ ATION 02/13/2024 [facility] DATE CREATED AUTHOR AUTHOR'S ORGANIZ ATION 10/27/2024 [facility] DATE CREATED AUTHOR AUTHOR'S ORGANIZ ATION 11/13/2024 [facility] DATE CREATED AUTHOR AUTHOR'S ORGANIZ ATION 01/01/2025 [facility] DATE CREATED AUTHOR AUTHOR'S ORGANIZ ATION 01/03/2025 [facility] DATE CREATED AUTHOR AUTHOR'S ORGANIZ ATION 03/21/2025 [facility] DATE CREATED AUTHOR AUTHOR'S ORGANIZ ATION 03/23/2025 [facility] DATE CREATED AUTHOR AUTHOR'S ORGANIZ ATION 04/03/2025 [facility] DATE CREATED AUTHOR AUTHOR'S ORGANIZ ATION 04/30/2025 [facility] Source Comments (unrecognize d section and content) In the event this informatio n is protected by the Federal Confidentiality of Alcohol and Drug Abuse Patient Records regulations: The Federal rules restrict any use of the information to criminally investigate or prosecute any alcohol or drug abuse patient.[facility] HospitalIn the event this information is protected by the Federal Confidentiality of Alcohol and Drug Abuse Patient Records regulations: The Federal rules restrict any use of the information to criminally investigate or prosecute any alcohol or drug abuse patient.[facility] HospitalIn the event this information is protected by the Federal Confidentiality of Alcohol and Drug Abuse Patient Records regulations: The Federal rules restrict any use of the information to criminally investigate or prosecute any alcohol or drug abuse patient.[facility] HospitalIn the event this information is protected by the Federal Confidentiality of Alcohol and Drug Abuse Patient Records regulations: The Federal rules restrict any use of the information to criminally investigate or prosecute any alcohol or drug abuse patient.[facility] HospitalIn the event this information is protected by the Federal Confidentiality of Alcohol and Drug Abuse Patient Records regulations: The Federal rules restrict any use of the information to criminally investigate or prosecute any alcohol or drug abuse patient.[facility] HospitalIn the event this information is protected by the Federal Confidentiality of Alcohol and Drug Abuse Patient Records regulations: The Federal rules restrict any use of the information to criminally investigate or prosecute any alcohol or drug abuse patient.[facility] HospitalIn the event this information is protected by the Federal Confidentiality of Alcohol and Drug Abuse Patient Records regulations: The Federal rules restrict any use of the information to criminally investigate or prosecute any alcohol or drug abuse patient.[facility] HospitalIn the event this information is protected by the Federal Confidentiality of Alcohol and Drug Abuse Patient Records regulations: The Federal rules restrict any use of the information to criminally investigate or prosecute any alcohol or drug abuse patient.[facility] HospitalIn the event this information is protected by the Federal Confidentiality of Alcohol and Drug Abuse Patient Records regulations: The Federal rules restrict any use of the information to criminally investigate or prosecute any alcohol or drug abuse patient.[facility] HospitalIn the event this information is protected by the Federal Confidentiality of Alcohol and Drug Abuse Patient Records regulations: The Federal rules restrict any use of the information to criminally investigate or prosecute any alcohol or drug abuse patient.[facility] HospitalIn the event this information is protected by the Federal Confidentiality of Alcohol and Drug Abuse Patient Records regulations: The Federal rules restrict any use of the information to criminally investigate or prosecute any alcohol or drug abuse patient.[facility] HospitalIn the event this information is protected by the Federal Confidentiality of Alcohol and Drug Abuse Patient Records regulations: The Federal rules restrict any use of the information to criminally investigate or prosecute any alcohol or drug abuse patient.[facility] HospitalIn the event this information is protected by the Federal Confidentiality of Alcohol and Drug Abuse Patient Records regulations: The Federal rules restrict any use of the information to criminally investigate or prosecute any alcohol or drug abuse patient.[facility] HospitalIn the event this information is protected by the Federal Confidentiality of Alcohol and Drug Abuse Patient Records regulations: The Federal rules restrict any use of the information to criminally investigate or prosecute any alcohol or drug abuse patient.[facility] HospitalIn the event this information is protected by the Federal Confidentiality of Alcohol and Drug Abuse Patient Records regulations: The Federal rules restrict any use of the information to criminally investigate or prosecute any alcohol or drug abuse patient.[facility] Reason for Visit (unrecogniz ed section and content) ReasonCommentsResultsReasonCommentsHead and Neck CancerSpecialtyDiagnoses / ProceduresReferred By ContactReferred To ContactHematology/Oncology / HEMATOLOGY/ONCOLOGY Diagnoses Follow-up examination 1 year follow up LABS WITH CT Procedures EST PATIENT Racquel Cole MD [facility] [place] [address] Racquel Cole MD [address] [place] [address] [place] [address] Referral IDStatusReasonStart DateExpiration DateVisits RequestedVisits [id number]/28/202212/31/342451JxuoqlRoxdjpjjEcujwvxp Information NeurosurgeryReasonCommentsEstablished PatientSpecialtyDiagnoses / Procedures Referred By ContactReferred To ContactHematology/Oncology / HEMATOLOGY/ONCOLOGY Diagnoses 2 week phone follow up [phone] Procedures PHYS/QHP TELEPHONE EVALUATION 5-10 MIN PROVIDER SPECIALTY PHONE CALL Racquel Cole MD [address] [place] [place] [address] Racquel Cole MD [facility] [place] [address] Referral IDStatusReasonStart DateExpiration DateVisits RequestedVisits [id number]/12/202212/574334VeczxmZwmzjrggVlqgtsPlqrgesb Referral--oldReasonCommentsAppointmentReasonCommentsNew PatientSpecialty Diagnoses / ProceduresReferred By ContactReferred To ContactNeurology / BRAIN TUMOR Diagnoses Hydrocephalus (HCC) Hydrocephalus Procedures OFFICE/OUTPATIENT NEW MODERATE MDM 45-59 MINUTES NEW SURGICAL Oziel Cadena MD [address] [address] Kelly Perez PA-C [address] [place] [address] Referral IDStatusReasonStart DateExpiration DateVisits RequestedVisits [id number]/29/202312/068177YuxdscDdcziyfdAgsrlsw Question ReasonCommentsRadiology MRISpecialtyDiagnoses / ProceduresReferred By Contact Referred To ContactMR IMAGING Diagnoses 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HCC) Procedures MRI BRAIN WO/W IVCON MRI BRAIN BRAIN STEM W/O W/CONTRAST MATERIAL Kelly Perez PA-C [address] [place] [address] Mr Imaging Referral IDStatusReasonStwinn DateExpiration DateVisits RequestedVisits [id number] Auto-Generated Referral /[id number] Patient VisitReasonCommentsHead and Neck Cancer1 year follow upReasonCommentsRadiology CTSpecialtyDiagnoses / Procedures Referred By ContactReferred To ContactCT IMAGING Diagnoses 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) Procedures CT NECK SOFT TISSUE W IVCON CT SOFT TISSUE NECK W/CONTRAST MATERIAL Racquel Cole MD [address] [place] [address] [place] [address] Ct Imaging [place] [address] Referral IDStatusReasonStart DateExpiration DateVisits RequestedVisits [id number] Auto-Generated Referral /[id number] / ProceduresReferred By ContactReferred To ContactCT IMAGING Diagnoses Lung nodules Procedures CT CHEST W IVCON DIAGNOSTIC COMPUTED TOMOGRAPHY THORAX W/CONTRAST Racquel Cole MD [address] [place] [address] [place] [address] Ct Imaging [facility]95 Referral IDStatusReasonart DateExpiration DateVisits RequestedVisits [id number] Auto-Generated Referral /[id number] / ProceduresReferred By ContactReferred To ContactCT IMAGING Diagnoses Malignant neoplasm of head, face and neck (HCC) Lung nodules 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) Localized swelling, mass or lump of neck Procedures CT NECK SOFT TISSUE W IVCON CONTRAST CAT OF NECK TISSUE Racquel Cole MD [address] [place] [address] [address] [place] [phone] Ct Imaging [place] [address] [facility] DateExpiration DateVisits RequestedVisits [id number] Auto-Generated Referral /[id number] PainTinglingNumbnessSpecialtyDiagnoses / ProceduresReferred By ContactReferred To ContactRadiology 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 tumor perfusion protocol w and wo IV contrast Shimon Heaton PA-C [address] [place] [address] [facility] DateExpiration DateVisits RequestedVisits [id number] Perform Procedure [id number] PainSpecialtyDiagnoses / ProceduresReferred By ContactReferred To Contact Diagnoses Cervical radiculopathy Senile osteoporosis Procedures ECG 12 lead Doretha Harris MD [address] [facility], [facility] [address] [place] [address] Referral IDStatusReasonStart DateExpiration DateVisits RequestedVisits [id number]/24/20247/24/[id number] / Procedures Referred By ContactReferred To ContactRadiology Diagnoses Cervical radiculopathy Procedures XR cervical spine complete 6+ views Doretha Harris MD [address] [facility], [facility] [address] [place] [address] Referral IDStatusReasonStart DateExpiration DateVisits RequestedVisits [id number] Perform Procedure [id number] / ProceduresReferred By ContactReferred To ContactRadiology Diagnoses Cervical radiculopathy Procedures XR DEXA bone density Doretha Harris MD [address] [facility], [facility] [address] [place] [address] Referral IDStatusReasonStart DateExpiration DateVisits RequestedVisits [id number] Perform Procedure [id number]-rf Spine SurgeryPain in left shoulder. 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) Procedures CT CHEST W IVCON DIAGNOSTIC COMPUTED TOMOGRAPHY THORAX W/CONTRAST Racquel Cole MD [address] [place] [address] [place] [address] Phone: tel: fax: [place] [address] Referral IDStatusReasonStart DateExpiration DateVisits RequestedVisits [id number] Auto-Generated Referral /[id number] Check Care Teams (unrecognized sec tion and content) Team MemberRelationshipSpecialtyStart DateEnd Date Griselda Krause [address] [place] [address], [place] [address] PCP - GeneralFamily Practice11/20/18 Griselda Krause [address] [place] [address], [place] [address] ReferringFamily Practice11/20/18Team MemberRelationshipSpecialtyStart DateEnd Date Griselda Krause [address] [place] [address], [place] [address] PCP - GeneralFamily Practice11/20/18 Griselda Krause [address] [place] [address], [place] [address] ReferringFamily Practice11/20/18Team MemberRelationshipSpecialtyStart DateEnd Date Griselda Krause [address] [place] [address], [facility] PCP - GeneralFamily Practice11/20/18 Griselda Krause [address] [place] [address], [place] [address] ReferringFamily Practice11/20/18Team MemberRelationshipSpecialtyStart DateEnd Date Griselda Krause [address] [place] [address], [place] [address] PCP - GeneralFamily Practice11/20/18 Griselda Krause [address] [place] [address], [place] [address] ReferringFamily Practice11/20/18Team MemberRelationshipSpecialtyStart DateEnd Date Griselda Krause [address] [place] [address], [place] [address] [facility]/20/18 Griselda Krause [address] [place] [address], [place] [address] [facility] Medicine11/20/18Team MemberRelationshipSpecialtyStart DateEnd Date Griselda Krause [address] [place] [address], [place] [address] PCP - [facility] Medicine11/20/18 DarlingGriselda [address] [place] [address], [place] [address] [facility]11/20/18 Team Status: Inactive Member Role Status Poornima Krause , DO Primary Care Provider Active Elias Kingsley ProviderActive Team Status: Active Member Role Status Poornima Krause , DO Primary Care Provider Active Rafa Cuevas ProviderActive Team Status: Active Member Role Status Poornima Krause , DO Primary Care Provider Active Team Status: Inactive Member Role Status Poornima Krause , DO Primary Care Provider Active Daneille Ortiz Jr ProviderActive Team Status: Active Member Role Status Poornima Krause , DO Primary Care Provider Active Nikole Mota , CORRESPONDENCE CLERK WELL CONTROL INSTRUCTOR-CAttending ProviderActive Team Status: Inactive Member Role Status Poornima Krause , DO Primary Care Provider Active Rafa Cuevas ProviderActive Team Status: Inactive Member Role Status Poornima Krause , DO Primary Care Provider Active Nikole Mota , CORRESPONDENCE CLERK WELL CONTROL INSTRUCTOR-CAttending ProviderActiveTeam MemberRelationship SpecialtyStart DateEnd Date Griselda Krause [address] [place] [address], [place] [address] PCP - [facility] Medicine11/20/18 Griselda Krause [address] [place] [address], [place] [address] ReferringFamily Medicine11/20/18 Oziel Cadena MD [address] [facility] [address] [address] [place] [address], [place] [address] ReferringNeurology08/18/22Team MemberRelationshipSpecialtyStart DateEnd [facility] Griselda Krause [address] [place] [address], [place] [address] PCP - GeneralFamily Medicine11/20/[address] [place] [address] [facility]erringFabeverly hospital Medicine11/20/18 Oziel Cadena MD [address] [facility] [address] [place] [address] ReferringNeurology08/18/22Team MemberRelationshipSpecialtyStart DateEnd [facility] Griselda Krause [address] [place] [address], [place] [address] [facility] - [facility]11/20/18 Griselda Krause [address] [place] [address], [place] [address] ReferringFamily Medicine11/20/18 Oziel Cadena MD [address] [facility] [facility] [address] [place] [address] [place] [address], [place] [address] ReferringNeurology08/18/22 Team Status: Inactive Member Role Status [...] DateEnd Date Griselda Krause DO [address] [place] [facility] [place] [phone] PCP - [facility]02/13/23Team MemberRelationshipSpecialtyStart DateEnd Date Griselda Krause, [address] [place] [facility] [place] [address] PCP - [facility]02/13/23 Team Status: Inactive Member Role Status Poornima Krause DO Primary Care Provider Active Sta rt: May 04, 2023 End: May 04, 2023Nikole Mota APRN WELL CONTROL INSTRUCTOR-CAttending Provider ActiveStart: May 04, 2023 End: May [...] MemberRelationshipSpecialtyStart DateEnd Date Griselda Krause DO [address] [facility] [address] [place] [address] PCP - General01/03/19 [place] [address] [place] [address] Consulting PhysicianHematology and Oncology10/05/23 Team Status: Inactive [...] 29, 2023Team MemberRelationshipSpecialtyStart DateEnd Date Griselda Krause [address] [place], [place] [phone] PCP - GeneralFamily Medicine11/20/18 Griselda Krause [address] [place], [place] [phone] ReferringFamily Medicine11/20/18 Oziel Cadena MD [address] [facility] [address] [address] ReferringNeurology08/18/22 Team Status: Active Member Role Status Dates Lilliam Cason MD Tax Revenue Officer Active Saira Stewart Care ProviderActive Team Status: Inactive Member Role Status Dates Griselda Krause DO Primary Care Provide r, Attending Provider Active Start: December 03, 2023 End: December 03, 2023 Team Status: Inactive Member Role Status Dates Griselda Krause DO Primary Care Provide r, Attending Provider Active Start: January 31, 2024 End: January 31, 2024Team MemberRelationshipSpecialtyStart DateEnd Date Griselda Krause [address] [place] [phone] PCP - GeneralFamily Medicine11/20/18 Griselda Krause [address] [place] [phone] ReferringFamily Medicine11/20/18 Oziel Cadena MD [address] [facility] [address] [place] [address], [place] [address] ReferringNeurology08/18/22Team MemberRelationshipSpecialtyStart DateEnd Date Griselda Krause [address] [place], [place] [phone] PCP - GeneralFamily Medicine11/20/18 Griselda Krasue [address] [place], [place] [phone] ReferringFamily Medicine11/20/18 Oziel Cadena MD [address] [facility] [address]man [address] [place] [address] ReferringNeurology08/18/22Team MemberRelationshipSpecialtyStart DateEnd Date Griselda Krause [address] [place] [phone] PCP - GeneralFamily Medicine11/20/18 Griselda Krause [address] [place] [phone] ReferringFamily Medicine11/20/18Team MemberRelationshipSpecialtyStart DateEnd Date Griselda Krause DO [address] [place] [address] PCP - General01/03/19 [place] [address] [place] [address] Consulting PhysicianHematology and Oncology10/05/23 Solomon Narayanan PA-C [address] [facility], [address] [address] Physician AssistantNeurosurgery12/12/23 Team Status: Inactive Member Role Status Dates Griselda Krause DO Primary Care Provide r, Attending Provider Active Start: April 01, 2024 End: April 01, 2024Team MemberRelationshipSpecialtyStart DateEnd Date Griselda Krause DO [address] [place] [address] PCP - General01/03/19 [place] [address] [place] [address] Consulting PhysicianHematology and Oncology10/05/23 Solomon Narayanan PA-C [address] [facility], [address] [address] Physician AssistantNeurosurgery12/12/23Team MemberRelationshipSpecialtyStart Date End Date Griselda Krause DO [address] [place] [address] PCP - General01/03/19 [place] [address] [place] [address] Consulting PhysicianHematology and Oncology10/05/23 Solomon Narayanan PA-C [address] [place] [address] Physician AssistantNeurosurgery12/12/23 Team Status: Inactive Member Role Status Dates Griselda Krause DO Primary Care Provider Active Sta rt: April 28, 2024 End: April 28, 2024Linda Jasson Casonending ProviderActiveStart: April 28, 2024 End: April 28, 2024Team MemberRelationshipSpecialtyStart DateEnd Date Griselda Krause DO [address] [place] [phone] PCP - GeneralFamily Medicine02/13/23Team MemberRelationshipSpecialtyStart DateEnd Date Griselda Krause DO [address] [place] [phone] PCP - GeneralFamily Medicine02/13/23Team MemberRelationshipSpecialtyStart DateEnd Date Griselda Krause DO [address], [place] [phone] PCP - General01/03/19 [place] [address] [place] [address] Consulting PhysicianHematology and Oncology10/05/23 Solomon Narayanan PA-C [address] [facility], [address] [address] Physician AssistantNeurosurgery12/12/23Team MemberRelationshipSpecialtyStart Date End Date Griselda Krause DO [address] [place] [address] PCP - General01/03/19 [place] [address] [place] [address] Consulting PhysicianHematology and Oncology10/05/23 Solomon Narayanan PA-C [address] [facility], [address] [address] Physician AssistantNeurosurgery12/12/23Team MemberRelationshipSpecialtyStart Date End Date Griselda Krause DO [address] [place] [address] PCP - General01/03/19 [place] [address] [place] [address] Consulting PhysicianHematology and Oncology10/05/23 Solomon Narayanan PA-C [address] [facility], [address] [address] Physician AssistantNeurosurgery12/12/23Team MemberRelationshipSpecialtyStart Date End Date Griselda Krause DO [address] [place] [address] PCP - General01/03/19 [place] [address] [place] [address] Consulting PhysicianHematology and Oncology10/05/23 Solomon Narayanan PA-C [address] [facility], [address] [address] Physician AssistantNeurosurgery12/12/23Team MemberRelationshipSpecialtyStart Date End Date Griselda Krause DO [address] [place] [address] PCP - General01/03/19 [place] [address] [place] [address] Consulting PhysicianHematology and Oncology10/05/23 Solomon Narayanan PA-C [address] [facility], [address] [address] Physician AssistantNeurojaleesarlamberty12/12/23Team MemberRelationshipSpecialtyStart Date End Date Griselda Krause DO [address] [place] [address] PCP - General01/03/19 [place] [address] [place] [address] Consulting PhysicianHematology and Oncology10/05/23 Solomon Narayanan PA-C [address] [facility], [address] [address] Physician AssistantNeurosurgery12/12/23 Team Status: Inactive Member Role Status Dates Griselda Krause DO Primary Care Provider Active Sta rt: June 24, 2024 End: June 24, 2024Mingo Blanton ProviderActiveStart: June 24, 2024 End: June 24, 2024Team MemberRelationshipSpecialtyStart DateEnd Date Griselda Krause DO [address], [place] [phone] PCP - General01/03/19 [place] [address] [place] [address] Consulting PhysicianHematology and Oncology10/05/23 Solomon Narayanan PA-C [address] [place] [address] Physician AssistantNeurosurgery12/12/23Team MemberRelationshipSpecialtyStart Date End Date Griselda Krause DO [address] [place] [phone] PCP - GeneralFamily Medicine02/13/23 Team Status: Inactive Member Role Status Dates Grisleda Krause DO Primary Care Provide r, Attending Provider Active Start: July 03, 2024 End: July 03, 2024Team MemberRelationshipSpecialtyStart DateEnd Date Griselda Krause DO [address] [place] [address] PCP - GeneralFamily Medicine02/13/23Team MemberRelationshipSpecialtyStart DateEnd Date Griselda Krause DO [address] [place] [address] PCP - GeneralFamily Medicine02/13/23 Team Status: Active Member Role Status Dates Griselda Krause DO Primary Care Provider Active Sta rt: September 11, 2024 Jasson Mendozaending ProviderActiveStart: September 11, 2024 Team Status: Inactive Member Role Status Poornima Krause DO Primary Care Provider Active Sta rt: September 11, 2024 End: September 11, 2024Keysha Guy WELL CONTROL INSTRUCTOR-CAttenyong ProviderActiveStart: September 11, 2024 End: September 11, 2024Team MemberRelationshipSpecialtyStart DateEnd Date Griselda Krause DO [facility] [place] [address] PCP - [facility]02/13/23 Team Status: Inactive Member Role Status Poornima Krause DO Primary Care Provider Active Sta rt: September 11, 2024 End: September 11, 2024Rafa Mendoza ProviderActiveStart: September 11, 2024 End: September 11, 2024 Team Status: Inactive Member Role Status Poornima Krause DO Primary Care Provider Active Sta rt: September 20, 2024 End: September 20Dainelle Kuhn ProviderActiveStart: September 20, 2024 End: September 20, 2024Team MemberRelationshipSpecialtyStart DateEnd Date Griselda Krause DO PCP - [facility]02/13/23 Team Status: Inactive Member Role Status Poornima [...] DateEnd Date Griselda Krause DO [address] [place] [address] PCP - General01/03/19 [place] [address] [place] [address] Consulting PhysicianHematology and Oncology10/05/23 Solomon Narayanan PA-C [address] [place] [address] Physician AssistantNeurosurgery12/12/23Team MemberRelationshipSpecialtyStart Date End Date Griselda Krause DO [address] [place] [address] PCP - General01/03/19 [place] [address] [place] [address] Consulting PhysicianHematology and Oncology10/05/23 Solomon Narayanan PA-C [address] [place] [address] Physician AssistantNeurosurgery12/12/23 Team Status: Inactive Member Role Status Dates Griselda Krause DO Primary Care Provider Active Sta rt: October 27, 2024 End: October 27, 2024LinJasson Estevezending ProviderActiveStart: October 27, 2024 End: October 27, 2024Team MemberRelationshipSpecialtyStart DateEnd Date Griselda Krause [address] [place] [phone] PCP - GeneralFamily Medicine11/20/18 Griselda Krause [address] [place], [place] [phone] ReferringFamily Medicine11/20/18 Oziel Cadena MD [address] [facility] [address] [place] [address] ReferringNeurology08/18/22Team MemberRelationshipSpecialtyStart DateEnd Date Griselda Krause [address] [place] [phone] PCP - GeneralFamily Medicine11/20/18 Griselda Krause [address] [place] [phone] ReferringFamily Medicine11/20/18 Oziel Cadena MD [address] [place] [address] ReferringNeurology08/18/22Team MemberRelationshipSpecialtyStart DateEnd Date Griselda Krause DO [facility] - [facility]02/13/23 Team Status: Active Member Role Status [...] 2024Team MemberRelationshipSpecialtyStart DateEnd Date Griselda Krause DO [facility] - [facility]02/13/23 Team Status: Inactive Member Role Status Dates Griselda Krause DO Primary Care Provide r, Attending Provider Active Start: 2024 End: November 24, 2024Team MemberRelationshipSpecialtyStart DateEnd Date Griselda Krause DO [facility]02/13/23 Team Status: Active Member Role [...] DateEnd Date Griselda Krause DO PCP - [facility]02/13/23Team MemberRelationshipSpecialtyStart DateEnd Date Griselda Krause DO [facility]02/13/23 Team Status: Active Member Role [...] DateEnd Date Griselda Krause DO PCP - [facility]02/13/23 Team Status: Inactive Member Role Status Poornima Krause DO Primary Care Provider Active Sta rt: February 26, 2025 End: February 26natalya Krause , DOAttending ProviderActiveStart: February 26, 2025 End: February 26, 2025Team MemberRelationshipSpecialtyStart DateEnd Date Griselda Krause DO PCP - [facility]02/13/23 Team Status: Inactive Member Role Status Poornima Krause DO Primary Care Provider Active Sta rt: April 01, 2025 End: April 01natalya Krause , DOAttending ProviderActiveStart: April 01, 2025 End: April 01, 2025 Team Status: Active Member Role/Relationship Status Dates Lilliam Cason MD Tax Revenue Officer Active [facility] ProviderActive Team Status: Active Member [...] (New Bag - Provider: Shelly Mullins Capp [facility]) * 1630 (Stopped - Provider: NAVEEN Reddy) * 1631 (Continued from OR - Provider: Goyo Agarwal RN) * 145 (Due: Stopped - Provider: Nikole eLzama, AnuradhaD) lactated Ringer's infusion 100 mL/hr, intravenous, [...] dose. * 1653 (Given - Provider: Goyo Aagrwal RN) * 1730 (Given - Provider: Goyo [...] BE BASED ON THE PRIMARY CLINICAL RECORDS. [employer] [facility]. provides no warranty or guarantee of the accuracy or completeness of information in this document.
--- NOTE | 2025-06-15 13:30 | PM.CN ---
Consult Note: HPI Data of Consult Patient: known to practice within the last 3 years Consult date: 06/15/25 Requesting Physician: Sarina Ramsey MD Primary Care Provider: GRISELDA KRAUSE Consult Narrative Reason for consult: neck, low back, right leg pain Narrative: 64yom who presents for assessment. notes persistence of neck pain since scs implantation with neurosurgeon. has appt with them tomorrow. continues to have low back and right hip and leg pain. imaging reviewed, significant for multilevel moderate to severe stenosis. uses percocet and lyrica. has continued in a series of provider directed home exercises >6 weeks, without lasting benefit. cc:: CC: Sarina Ramsey MD Review of Systems ROS Status of ROS 10 or more systems reviewed and unremarkable except as noted in history and below [facility] Medical History Tongue carcinoma ?C02.9 - Malignant neoplasm of tongue, unspecified (ICD-10) First degree AV block ?I44.0 - Atrioventricular block, first degree (ICD-10) Claudication of both lower extremities ?I73.9 - Peripheral vascular disease, unspecified (ICD-10) Nicotine dependence with current use ?F17.200 - Nicotine dependence, unspecified, uncomplicated (ICD-10) Oral cancer ?C06.9 - Malignant neoplasm of mouth, unspecified (ICD-10) Cervical radiculopathy ?M54.12 - Radiculopathy, cervical region (ICD-10) Myofascial pain ?M79.18 - Myalgia, other site (ICD-10) Mononeuropathy of left suprascapular nerve ?G56.82 - Other specified mononeuropathies of left upper limb (ICD-10) Neuropathy, axillary nerve ?G56.90 - Unspecified mononeuropathy of unspecified upper limb (ICD-10) Cervical spondylosis ?M47.812 - Spondylosis without myelopathy or radiculopathy, cervical region (ICD-10) Degenerative disc disease, cervical ?M50.30 - Other cervical disc degeneration, unspecified cervical region (ICD-10) Chronic prescription opiate use ?Z79.891 - terminal clerk (current) use of opiate analgesic (ICD-10) Myalgia, other site ?M79.18 - Myalgia, other site (ICD-10) Malignant neoplasm of head and neck ?C76.0 - Malignant neoplasm of head, face and neck (ICD-10) Squamous cell carcinoma Skin cancer ?C44.90 - Unspecified malignant neoplasm of skin, unspecified (ICD-10) Osteoarthritis ?M19.90 - Unspecified osteoarthritis, unspecified site (ICD-10) Depression ?F32.A - Depression, unspecified (ICD-10) Anxiety ?F41.9 - Anxiety disorder, unspecified (ICD-10) Seasonal allergies ?J30.2 - Other seasonal allergic rhinitis (ICD-10) Cataract ?H26.9 - Unspecified cataract (ICD-10) GERD (gastroesophageal reflux disease) ?K21.9 - Gastro-esophageal reflux disease without esophagitis (ICD-10) Dyspnea on exertion ?R06.09 - Other forms of dyspnea (ICD-10) PVD (peripheral vascular disease) ?I73.9 - Peripheral vascular disease, unspecified (ICD-10) High cholesterol ?E78.00 - Pure hypercholesterolemia, unspecified (ICD-10) Neck pain ?M54.2 - Cervicalgia (ICD-10) Low back pain ?M54.50 - Low back pain, unspecified (ICD-10) Smoker ?F17.200 - Nicotine dependence, unspecified, uncomplicated (ICD-10) Irregular heart beat ?I49.9 - Cardiac arrhythmia, unspecified (ICD-10) Hypertension ?I10 - Essential (primary) hypertension (ICD-10) Surgical History Status post surgical removal of malignant neoplasm of skin ?Z98.890 - Other specified postprocedural states (ICD-10) History of tonsillectomy ?Z90.89 - Acquired absence of other organs (ICD-10) Status post cervical spinal fusion ?Z98.1 - Arthrodesis status (ICD-10) Cataract extraction status of left eye ?Z98.42 - Cataract extraction status, left eye (ICD-10) H/O cervical spine surgery ?Z98.890 - Other specified postprocedural states (ICD-10) H/O neck dissection ?Z98.890 - Other specified postprocedural states (ICD-10) Family History Other Family history of COPD (chronic obstructive pulmonary disease) Family history of diabetes mellitus Family history of emphysema Family history of heart disease Family history of hypertension Family history of stroke Family history of throat cancer Social History Within the past year, how often did you have a drink containing alcohol: never Score interpretation: A score less than 4 is consistent with normal alcohol consumption. Smoking status: Current every day smoker Non-prescribed substance use: denies use Previous occupational history: disabled Highest level of school completed/degree received: high school graduate Little interest or pleasure in doing things: not at all Feeling down, depressed, or hopeless: not at all Meds Home Medications and Allergies Home Medications ?Medication ?Instructions ?Recorded ?Confirmed ?Type aspirin 81 mg tablet,delayed 81 mg PO DAILY 04/16/23 04/13/25 History release (Adult Low Dose Aspirin) naloxone 4 mg/actuation nasal 4 mg intranasal Q2M PRN opioid 09/11/24 04/13/25 Rx spray (Narcan) overdose #2 ea alirocumab 75 mg/mL subcutaneous 75 mg subcut Q14D 01/27/25 04/13/25 History pen injector (Praluent Pen) citalopram 10 mg tablet 10 mg PO DAILY 01/27/25 04/13/25 History ezetimibe 10 mg tablet 10 mg PO DAILY 01/27/25 04/13/25 History pantoprazole 40 mg tablet,delayed 40 mg PO Q12H 01/27/25 04/13/25 History release tizanidine 4 mg capsule 4 mg PO Q12H 01/27/25 04/13/25 History hydrocodone 7.5 mg-acetaminophen 1 tab PO BID PRN pain #60 tabs 03/04/25 04/13/25 Rx 325 mg tablet diazepam 10 mg tablet mg 04/13/25 History pregabalin 50 mg capsule (Lyrica) 50 mg PO DAILY #30 caps 05/13/25 Rx Allergies Allergy/AdvReac Type Severity Reaction Status Date / Time cephalexin (From Keflex) Allergy Unknown hives Verified 04/13/25 12:10 Exam Narrative Exam Narrative: Psych-alert and oriented x 3. Attentive and appropriate, constitutionally normal, displays normal mood and affect per situation. There are no obvious deficits in memory, reasoning, or intellect.? Skin-no obvious rashes, bruising, erythema noted to the patient's area of pain.? Extremities- extremities are warm with minimal edema and palpable pulses. Lumbar-tenderness to palpation noted in the lumbar spine and paraspinal musculature. Pain is elicited with flexion, extension, and lateral rotation of the lumbar spine. Range of motion is diminished with these motions. Facet loading maneuvers are positive.? Strength-noted to be unremarkable with the exception of decreased strength rated at 4 out of 5 in right quadriceps femoris, anterior tibialis. Sensory-no notable sensory deficits in the bilateral lower extremities to touch or pinprick in all dermatomal distributions with the exception to decreased sensation to the right L4, 5 dermatomal distribution Coordination remains intact.? Gait remains non-antalgic. Assessment and Plan Assessment and Plan (1) Lumbar stenosis with neurogenic claudication: (2) Lumbar spondylosis: Plan 64yom who presents for assessment. failed conservative measures, as noted. imaging reviewed, as noted. given symptoms and imaging, prudent to attempt right l4-5, l5-s1 tfesi under fluoroscopic guidance. he is in agreement. meds reviewed, refilled percocet and lyrica. scheduled to see neurosurgeon tomorrow to discuss pain after scs implant. follow up after procedure.
== END 2025-06-15 12:26 | disposition home or self-care (01) ==
LOC: PM 12:27
PROVIDERS: PCP Family Medicine; Visit Provider Anesthesiology
DX: M48.062 Spinal stenosis, lumbar region with neurogenic claudication (principal); M47.816 Spondylosis without myelopathy or radiculopathy, lumbar region
CPT/HCPCS: G0463